=== PATIENT | female | born 1970 | race Caucasian/White ===

== ENCOUNTER 2023-04-12 10:32 | Outpatient (OUT) | payer OTHER, SELFPAY ==
--- NOTE | 2023-04-12 10:42 | XR_ITS ---
The [address] [address] Patient Name: ELSIE FUENTES MRN: [id number] date: 1970 Sex: F Assigned Patient Location: [facility] Current Patient Location: [facility] Accession/Order Number: [id number] Exam Date: 04/12/2023 10:42 Report Date: 04/12/2023 16:20 At the request of: SADE WILDE Procedure: XR foot RT min 3V PROCEDURE: XR foot RT min 3V HISTORY: RIGHT FOOT PAIN COMPARISON: XR foot right 02/21/2023 FINDINGS: BONES:Anterior and posterior calcaneal osteotomy with wedge placement anteriorly and lag screw fixation posteriorly. Osteotomy and wedge placement within the medial cuneiform. Osteotomy and single screw repair of head of first metatarsal. SOFT TISSUES:No visible soft tissue swelling. EFFUSION:None visible. OTHER: Negative. IMPRESSION: 1. Stable surgical changes without evidence of hardware failure or change in alignment. Electronically authenticated by: ZAIDA ACOSTA Date: 04/12/2023 16:20
== END 2023-04-12 10:33 ==
LOC: RAD 10:33
PROVIDERS: PCP Family Medicine; Visit Provider Podiatrist Foot & Ankle Surgery
DX: M79.671 Pain in right foot (principal)
CPT/HCPCS: 73630

== ENCOUNTER 2023-04-14 08:37 | Outpatient (OUT) | payer OTHER, SELFPAY ==
--- NOTE | 2023-04-14 08:56 | CT_ITS ---
[address] [address] Patient Name: ELSIE FUENTES MRN: [id number] date: 1970 Sex: F Assigned Patient Location: CT Current Patient Location: CT Accession/Order Number: [id number] Exam Date: 04/14/2023 09:00 Report Date: 04/14/2023 12:03 At the request of: SADE WILDE Procedure: CT ankle RT wo con EXAMINATION: CT ankle RT wo con HISTORY: Posterior Tibial Tendonitis Right Leg M76.821 COMPARISON: XR foot right 04/12/2023 TECHNIQUE: Multi-planar CT images were created without IV contrast. Dose reduction techniques were achieved by using automated exposure control and/or adjustment of mA and/or kV according to patient size and/or use of iterative reconstruction technique. FINDINGS: BONES: No fracture, dislocation, bone lesion, or periosteal reaction. Anterior calcaneal osteotomy with wedge placement. Posterior calcaneal osteotomy with realignment secured by 2 lag screws. Medial cuneiform osteotomy and wedge placement. SOFT TISSUES: Mild edema; no appreciable significant abnormality. EFFUSION: None visible. OTHER: Negative. IMPRESSION: 1. Remote surgical changes without appreciable acute abnormality or significant degenerative joint disease. 2. No appreciable soft tissue abnormality other than scattered mild edema. Electronically authenticated by: ZAIDA ACOSTA Date: 04/14/2023 12:03
== END 2023-04-14 08:38 ==
LOC: CT 08:38
PROVIDERS: PCP Family Medicine; Visit Provider Podiatrist Foot & Ankle Surgery
DX: M76.821 Posterior tibial tendinitis, right leg (principal); S93.30 Unspecified subluxation and dislocation of foot
CPT/HCPCS: 73700

== ENCOUNTER 2023-05-04 07:47 | Outpatient (OUT) | payer OTHER, SELFPAY ==
[2023-05-04 09:40] LABS: Anion Gap 9.3; BUN Creatinine Ratio 18.9; Carbon Dioxide 28.6 mmol/L (21.0-32.0); Chloride 107 mmol/L (98-107); Estimated GFR (African America >60 (>=60); Estimated GFR (Non-African Ame >60 (>=60); Glucose 106 mg/dL (74-106); Potassium 3.9 mmol/L (3.5-5.1); Sodium 141 mmol/L (136-145)
== END 2023-05-04 07:48 | disposition home or self-care (01) ==
LOC: PST 07:47
PROVIDERS: PCP Family Medicine; Visit Provider Podiatrist Foot & Ankle Surgery
DX: Z01.812 Encounter for preprocedural laboratory examination (principal); M76.821 Posterior tibial tendinitis, right leg; S93.30 Unspecified subluxation and dislocation of foot; I10 Essential (primary) hypertension
CPT/HCPCS: 36415; 80048

== ENCOUNTER 2023-05-13 09:58 | Observation (INO) | payer OTHER, SELFPAY ==
[2023-05-04 08:28] VITALS: PULSE 73; TEMP 36.5; O2SAT 96; BMI 29.1
[2023-05-12] VITALS (13 sets, daily range): BP systolic 111–127; BP diastolic 69–79; PULSE 58–93; RESP 10–18; TEMP 36.1–36.8; O2SAT 93–99; BMI 28.4
--- NOTE | 2023-05-12 | XR_ITS ---
[address] [address] Patient Name: ELSIE FUENTES MRN: [id number] date: 1970 Sex: F Assigned Patient Location: [facility] Current Patient Location: [facility] Accession/Order Number: [id number] Exam Date: 05/12/2023 12:15 Report Date: 05/12/2023 16:51 At the request of: SADE WILDE Procedure: XR foot RT min 3V EXAM: XR foot RT min 3V HISTORY: Right foot/ankle surgery COMPARISON: 04/12/2023 TECHNIQUE: 24 images FINDINGS: 24 images demonstrate posterior calcaneal osteotomy transfixed with cannulated screws. Anterior calcaneal osteotomy placement of a wedge spacer. Transverse osteotomy of the medial cuneiform. Surgical joshua across the lateral midfoot. Subtalar and talonavicular fusion IMPRESSION: Postsurgical changes as detailed above Electronically authenticated by: NICKI DACOSTA Date: 05/12/2023 16:51
[2023-05-12 10:50] LABS: Basophils Absolute Auto 0.1 10^3/uL (0.0-0.1); Basophils Percent Auto 0.9 % (0.2-2.0); Eosinophils Absolute Auto 0.1 10^3/uL (0.0-0.7); Hematocrit 38.9 % (36.0-48.0); Hemoglobin 12.8 g/dL (12.0-16.0); Immature Granulocytes Abs Auto 0.01 10^3/uL (0.00-0.03); Immature Granulocytes Pct Auto 0.1 % (0.0-0.5); Lymphocytes Absolute Auto 2.3 10^3/uL (1.2-3.8); Lymphocytes Percent Auto 32.8 % (20.5-60.0); Mean Corpuscular HGB Conc 32.9 g/dL (29.9-35.2); Mean Corpuscular Volume 85.1 fL (81.0-99.0); Mean Platelet Volume 8.9 fL (9.5-13.5); Monocytes Absolute Auto 0.5 10^3/uL (0.3-0.8); Monocytes Percent Auto 7.7 % (1.7-12.0); Neutrophils Absolute Auto 3.9 10^3/uL (1.4-6.5); Neutrophils Percent Auto 56.5 % (43.0-75.0); Platelet Count 320 10^3/uL (150-450); Red Blood Count 4.57 10^6/uL (4.20-5.40); Red Cell Distribution Width 12.9 % (11.0-15.0); White Blood Count 6.9 10^3/uL (4.0-11.0)
[2023-05-12 11:12] LABS: Glucometer 87 mg/dL (74-106)
[2023-05-12] MEDS: LACTATED RINGER'S SOLUTION 1,000 ML 50 ML IV ×3 (11:20→18:51)
--- NOTE | 2023-05-12 11:49 | PC.NURSE ---
1132 TIME OUT PERFORMED. 2 MG VERSED GIVEN WITH 50 FENTYNAL, REPOSITIONED PATIENT ON LEFT SIDE . PHYSICIAN CLEANSED BEHIND THE KNEE AREA , INJECTION STARTED AD FINISHED AT 1140 LOCATION POPLITEAL. NEXT TIME OUT 1142 FOR INJECTION OF ADUCTOR CANAL 50 FENTYNAL GIVEN AT THIS TIME AREA IN FRONT OF KNEE CLEANSED AND INJECTION STARTED THERE AFTER. AND COMPLETED AT 1144. PATIENT TOLERATED WELL.
[2023-05-12] MEDS: CEFAZOLIN SODIUM/DEXTROSE,ISO 2 GM/50 ML PIGGYBACK IV ×2 (11:54→20:07)
--- NOTE | 2023-05-12 13:38 | P.ORON_ITS ---
Brief Operative Note Date of procedure: 05/12/23 Pre-op diagnosis: right PTTD, retained hardware, subluxation CCJ, DJD foot Post-op diagnosis: other (right posterior tibial tendon dysfunction, retained orthopedic hardware, subluxation of calcaneocuboid joint and foot arthritis) Procedure: Procedures Performed: right triple arthrodesis, removal of deep implanted orthopedic hardware, harvest of distal tibial bone graft, ostectomy of calcaneus, application of short leg splint and intraoperative fluoroscopy examination PROCEDURE IN DETAIL: Patient was identified in pre op and consent was reviewed. Correct side and site were identified and marked. Pre-op antibiotics were started. Patient was brought to OR suite and place on table in a supine position. General anesthesia was administered. Tourniquet applied. Operative extremity was prepped and draped in usual sterile fashion. Formal time-out was performed and the foot/ankle were exsanguinated and tourniquet inflated. Incision was placed on the posterior calcaneus and blunt dissection was taken down to bone. A dental pick, curettes and osteotomes were used to identify the two retained calcaneal screws with the aid of fluoroscopy. Once the screws were identified and were removed with appropriate screwdriver. The screw holes were then curetted and bone was noted to be healthy and without evidence of infection. An incision from fibular malleolus to the cuboid was undertaken. Combination of sharp and blunt dissection gained access to the sinus tarsi. All bleeders were tied off or cauterized. EDB muscle was reflected and tagged for later approximation. Sinus tarsectomy was then performed. Hintermann distractor was used to access the subtalar joint which was prepped with curettes, osteotomes, rongeurs and drill with 2.0 mm drill.The posterior and the middle facet was thoroughly prepped. Attention was then drawn to the calcaneal cuboid joint which was release of all ligamentous. a distractor was used to fully visualize the articulation which was then prepared for fusion using same technique as was performed for the subtalar joint. The joint was irrigated with copious saline and the distractor was removed. An incision between the tibialis anterior and extensor hallucis longus tendon was utilized with sharp and blunt dissection. All bleeders were coagulated. Care was taken to protect neurovascular and tendinous structures. Deep dissection to the talonavicular joint was performed followed by blunt dissection directly onto the joint expose the entire joint. The talar head and navicular were then prepped with curettes, osteotomes, rongeurs and drill with 2.0 mm drill. All fusion sites were irrigated with copious amounts of sterile saline. dorsal talonavicular joint incision was then extended proximally. The ankle capsule was left intact but dissection was taken down to bone of the distal tibia. An 8 mm harvester was used to obtain autograft. The harvester was passed multiple times within the distal tibia to obtain 6cc of graft. The autograft was mixed with Sparc allograft then was packed into each of the three joints. The TNJ was then further reduced with manual manipulation and slightly plantarflexion. Utilizing fluoroscopy the talonavicular joint was then pinned with a guidewire through an accessory stab incision over the medial midfoot. Utilizing an additional guidewire and fluoroscopy the subtalar joint was then pinned from the talar neck into the calcaneal body. Fluoroscopy confirmed proper placement. Screw length was then measured and a 4.5 mm headless cannulated screw was placed across the talonavicular joint followed by a 6.5 mm headless cannulated screw across the subtalar joint. An additional guide wire was placed through a stab incision over posterior heel. The wire was placed from the calcaneal tuberosity into the talar body. Fluoroscopy confirmed deformity correction and proper placement of the wires. Then an additional 6.5 mm headless cannulated screw was placed over this wire. Guidewires, K wires and the distractor were then removed and position was rechecked on fluoroscopy and any residual deformity was evaluated. then utilizing the same stab incision over the medial midfoot a guidewire was placed across the talonavicular joint and an additional 4.5 mm cannulated screw was placed accordingly. Fluoroscopy as well as under direct visualization demonstrated significant compression of both joints and proper hardware placement. at this point in time the tourniquet was deflated and a prompt hyperemic response is noted. Surgical sites were irrigated and the dorsal incision was then closed in layers and the posterior heel incision was closed in a single layer while the lateral incision was temporarily closed with joshua. Once the dorsal incision and the posterior calcaneal incision were closed (ample time passed for reperfusion of the foot) and the foot was exsanguinated and the tourniquet was reinflated. the joshua were removed from the lateral incision and the site was irrigated. Then under fluoroscopy a 20 mm staple was placed from lateral to medial which provided compression and stability across the calcaneal cuboid joint. then the incision was slightly extended and dissection was taken dorsally to fully expose the anterior process which was dorsally prominent. The prominence was removed with an osteotome and rongeurs then smoothed with a rasp. Then an additional 20 mm staple was placed from dorsal to plantar providing additional stability. Fluoroscopy was used to confirm the placement of both joshua as well as the other fixation. Surgical site was irrigated then closed in layers. All sites were flushed with copious saline. Stab incisions and posterior heel incision were closed with nylon suture. The remaining incisions were closed in layers after. The tourniquet was dropped and a prompt hyperemic response was noted. A dry sterile dressing consisting of Xeroform on the incisions followed by 4 x 4 gauze, ABDs, and Kerlix were applied. Multiple layers of cast padding were then applied to ensure all bony prominences were well-padded. A plaster posterior splint was then applied which was held in place by Manjinder wraps. Capillary refill time to all digits was evaluated and had appropriate response. intraoperative findings: Dorsal subluxation of the anterior process of the calcaneus is notable with stable retained Campbell wedge with cortical bony overgrowth. Degenerative changes were noted of the subtalar and calcaneocuboid joints as well as mildly to the talonavicular joint. Bone quality was within normal limits. POSTOPERATIVE PLAN: Transfer to med/surg under hospitalist's care NWB operative foot/ankle Ice and elevation Lolis-op antibiotics, multimodal pain medication and DVT prophylaxis ordered Consults: physical therapy & manager social work Estimated LOS 1-2 nights Will follow *NWB x6-8 weeks Implants: Medline joshua/screws Anesthesia: other (general & regional) Surgeon: Jacob Felix Manifest/Order Organizer Print Orders: Benedicto Oviedo Estimated blood loss (mL): 25 Pathology: none sent Condition: stable Disposition: PACU Preoperative Details Reason for procedure: patient is a 53-year-old female well known to my practice who has undergone bilateral flatfoot reconstruction with the right being performed on 10/17/22. For postoperative period was complicated by a fall a few weeks after surgery and persistent pain over her sinus tarsi. Recent x-rays and CT scan show subluxation of the calcaneocuboid joint which is in the area of her pain. Given her lack of improvement she wished to pursue revision given that her pain is affecting activities of daily living, recreation and was daily. I recommended triple arthrodesis and discussed the downside of this option is the loss of motion in her hindfoot which she communicated was worth treating for pain relief. I outlined other possible complications including infection, pain, stiffness, adjacent joint arthritis, delayed/nonunion, wound and blood clot as well as need for additional surgery including hardware removal or revision. Consent was obtained and she wished to proceed with revision reconstruction.
[2023-05-12] MEDS: THROMBI-GEL SIZE 40 HEMOSTAT 1 EACH TOPICAL (13:45)
--- NOTE | 2023-05-12 15:25 | XR_ITS ---
The [address] [address] Patient Name: ELSIE FUENTES MRN: [id number] date: 1970 Sex: F Assigned Patient [facility] Current Patient Location: [facility] Accession/Order Number: [id number] Exam Date: 05/12/2023 14:10 Report Date: 05/12/2023 16:38 At the request of: NANCY CLARK Procedure: XR ankle RT min 3V STUDY: XR foot RT min 3V, XR ankle RT min 3V, [id number], [id number] HISTORY: post op COMPARISON: CT of the right ankle 04/14/2023. FINDINGS/IMPRESSION: Overlying cast material obscures fine bony detail. Status post hindfoot and midfoot fusion. Widening of the lateral aspect of the tibiotalar joint in the craniocaudad dimension. This of uncertain etiology and could be due to ankle stability versus positioning while in cast. No acute displaced fracture demonstrated. Status post first metatarsal bunionectomy. Electronically authenticated by: MELL ESCOBAR Date: 05/12/2023 16:38
[2023-05-12] MEDS: HYDROMORPHONE HCL 0.5 MG/0.5 ML SYRINGE IV ×2 (15:52→16:10)
[2023-05-12 15:58] LABS: Glucometer 113 mg/dL (74-106)
--- NOTE | 2023-05-12 16:01 | XR_ITS ---
The [address] [address] Patient Name: ELSIE FUENTES MRN: [id number] date: 1970 Sex: F Assigned Patient Location: [facility] Current Patient Location: [facility] Accession/Order Number: [id number] Exam Date: 05/12/2023 14:10 Report Date: 05/12/2023 16:38 At the request of: NANCY CLARK Procedure: XR foot RT min 3V STUDY: XR foot RT min 3V, XR ankle RT min 3V, [id number], [id number] HISTORY: post op COMPARISON: CT of the right ankle 04/14/2023. FINDINGS/IMPRESSION: Overlying cast material obscures fine bony detail. Status post hindfoot and midfoot fusion. Widening of the lateral aspect of the tibiotalar joint in the craniocaudad dimension. This of uncertain etiology and could be due to ankle stability versus positioning while in cast. No acute displaced fracture demonstrated. Status post first metatarsal bunionectomy. Electronically authenticated by: MELL ESCOBAR Date: 05/12/2023 16:38
[2023-05-12] MEDS: ENOXAPARIN SODIUM 40 MG/0.4 ML SYRINGE SUBQ (18:50)
[2023-05-12] MEDS: OXYCODONE HCL 5 MG TABLET 15 MG PO (18:50)
[2023-05-12 19:02] LABS: Bilirubin Urine NEGATIVE (NEGATIVE); Blood Urine NEGATIVE (NEGATIVE); Clarity Urine CLEAR (CLEAR); Color Urine LT. YELLOW (YELLOW); Glucose Urine UA NEGATIVE (NEGATIVE); Ketones Urine NEGATIVE (NEGATIVE); Leukocyte Esterase Urine NEGATIVE (NEGATIVE); Nitrite Urine NEGATIVE (NEGATIVE); Protein Urine NEGATIVE (NEG/TRACE); Urobilinogen Urine 0.2 EU/dL (0.2-1.0)
[2023-05-12 19:14] LABS: Urine Microscopic Indicated NO
[2023-05-12] MEDS: ROPINIROLE HCL 1 MG TABLET 2 MG PO (21:52)
[2023-05-12] MEDS: TRAZODONE HCL 50 MG TABLET 200 MG PO (21:52)
[2023-05-12] MEDS: ZOLPIDEM TARTRATE 10 MG TABLET PO (21:55)
[2023-05-13] MEDS: CEFAZOLIN SODIUM/DEXTROSE,ISO 2 GM/50 ML PIGGYBACK IV ×3 (03:10→20:10)
[2023-05-13] MEDS: OXYCODONE HCL 5 MG TABLET 10 MG PO (03:20)
[2023-05-13 05:53] VITALS: BP 104/63; PULSE 82; RESP 18; TEMP 36.9; O2SAT 93
[2023-05-13] MEDS: ATENOLOL 25 MG TABLET PO (08:19)
[2023-05-13] MEDS: ATORVASTATIN CALCIUM 20 MG TABLET PO (08:19)
[2023-05-13] MEDS: ROPINIROLE HCL 1 MG TABLET PO (08:19)
[2023-05-13] MEDS: OMEPRAZOLE 40 MG CAPSULE.DR PO (08:19)
[2023-05-13] MEDS: ACETAMINOPHEN 500 MG TABLET 1000 MG PO ×2 (08:19→15:39)
[2023-05-13] MEDS: BACLOFEN 10 MG TABLET 20 MG PO ×2 (08:24→20:10)
[2023-05-13] MEDS: KETOROLAC TROMETHAMINE 10 MG TABLET PO (08:30)
--- NOTE | 2023-05-13 09:57 | P.PN_ITS ---
Progress Note: Subjective Subjective Interval history: consulted for COmedical management Exam Constitutional Vital Signs, click to edit/add: Last Vital Signs Temp 98.4 F 05/13/23 05:53 Pulse 82 05/13/23 05:53 Resp 18 05/13/23 05:53 BP 104/63 05/13/23 05:53 Pulse Ox 93 L 05/13/23 05:53 O2 Del Method Room Air 05/13/23 05:53 O2 Flow Rate 3 05/12/23 16:02 Chest Common normals: inspection of chest normal Respiratory Common normals: normal respiratory effort Cardio Common normals: regular rate, regular rhythm and no murmurs GI Common normals: Normal to inspection, nondistended, normoactive bowel sounds present, soft to palpation, non-tender and no masses Progress Note: Objective Labs Labs: Short CBC 05/12/23 Range/Units 10:45 WBC 6.9 (4.0-11.0) 10^3/uL Hgb 12.8 (12.0-16.0) g/dL Hct 38.9 (36.0-48.0) % Plt Count 320 (150-450) 10^3/uL Urine 05/12/23 Range/Units 18:15 Urine Color Lt. yellow (YELLOW) Urine Clarity Clear (CLEAR) Urine pH 5.0 (5.0-9.0) Ur Specific [place] 1.010 (1.005-1.025) Urine Protein Negative (NEG/TRACE) mg/dL Urine Glucose (UA) Negative (NEGATIVE) mg/dL Progress Note: A&P Assessment and Plan (1) Anxiety: (2) Hypertension: (3) Sleep disorder: Plan Consulted for medical management for patient with podiatric ankle repair Hypertension-continue with home medications Generalized anxiety disorder with depression-continue with home medications Sleep apnea-patient does not use the machine but will monitor here Discharge disposition per podiatry
--- NOTE | 2023-05-13 09:59 | PM.PN ---
Progress Note: Subjective Subjective Interval history: patient is postop day one s/p right triple arthrodesis with bone graft. She relates that her pain is quite severe relating that the block has worn off starting at eight this morning. She has been offered pain medicine however relates that opioids bother her stomach. she has not been out of bed yet with physical therapy. She denies nausea, vomiting, chest pain, shortness of breath, calf pain. Exam Narrative Exam Narrative: splint is clean dry and intact. Able to wiggle toes no calf Pain on squeeze Constitutional Vital Signs, click to edit/add: Last Vital Signs Temp 98.4 F 05/13/23 05:53 Pulse 82 05/13/23 05:53 Resp 18 05/13/23 05:53 BP 104/63 05/13/23 05:53 Pulse Ox 93 L 05/13/23 05:53 O2 Del Method Room Air 05/13/23 05:53 O2 Flow Rate 3 05/12/23 16:02 Progress Note: Objective Labs Labs: Short CBC 05/12/23 Range/Units 10:45 WBC 6.9 (4.0-11.0) 10^3/uL Hgb 12.8 (12.0-16.0) g/dL Hct 38.9 (36.0-48.0) % Plt Count 320 (150-450) 10^3/uL Urine 05/12/23 Range/Units 18:15 Urine Color Lt. yellow (YELLOW) Urine Clarity Clear (CLEAR) Urine pH 5.0 (5.0-9.0) Ur Specific [place] 1.010 (1.005-1.025) Urine Protein Negative (NEG/TRACE) mg/dL Urine Glucose (UA) Negative (NEGATIVE) mg/dL ABG Attestation: I have reviewed the pertinent ABG results. Pulse Oximetry Attestation: I have reviewed the pertinent pulse oximetry results. Progress Note: A&P Assessment and Plan (1) Posterior tibial tendon dysfunction (PTTD) of right lower extremity: Assessment and Plan: s/p right foot revision reconstruction on 05/12/23 Plan She is having pain given block has worn off. I changed her Toradol order to 30mg IM q6 prn while the PO Toradol was discontinued Lyrica 75mg BID was added to aid in multimodal pain control and reduce rebound pain as nerve block continues to wear off Oxycodone ER 10mg was also added She is strict nonweightbearing in his to get out of bed today and work with physical therapy. She may sit in chair if she is comfortable Unrelated to the patient that she will likely be here until Monday or Monday in that I or Dr. Oviedo would wound on her Monday She will follow up in roughly a week from discharge Prescription is in her chart for pain medicine and all other prescriptions were sent to her pharmacy
[2023-05-13] MEDS: PREGABALIN 75 MG CAPSULE PO ×2 (10:43→20:10)
[2023-05-13 11:25] VITALS: O2SAT 97
[2023-05-13] MEDS: OXYCODONE HCL 5 MG TABLET 15 MG PO ×2 (12:20→18:23)
[2023-05-13] MEDS: KETOROLAC TROMETHAMINE 30 MG/ML VIAL IM ×2 (13:35→20:10)
[2023-05-13 13:41] VITALS: BP 92/57; PULSE 82; RESP 18; TEMP 36.7; O2SAT 93
[2023-05-13] MEDS: ENOXAPARIN SODIUM 40 MG/0.4 ML SYRINGE SUBQ (17:40)
[2023-05-13] MEDS: ROPINIROLE HCL 1 MG TABLET 2 MG PO (21:17)
[2023-05-13] MEDS: ZOLPIDEM TARTRATE 10 MG TABLET PO (21:17)
[2023-05-13] MEDS: TRAZODONE HCL 50 MG TABLET 200 MG PO (21:18)
[2023-05-13 21:20] VITALS: BP 90/58; PULSE 79; RESP 18; TEMP 37.2; O2SAT 92; O2SAT 93
[2023-05-14] MEDS: OXYCODONE HCL 5 MG TABLET 15 MG PO (02:20)
[2023-05-14] MEDS: CEFAZOLIN SODIUM/DEXTROSE,ISO 2 GM/50 ML PIGGYBACK IV ×3 (04:40→20:28)
[2023-05-14 05:39] VITALS: BP 128/78; PULSE 91; RESP 18; TEMP 37.9; O2SAT 91
[2023-05-14] MEDS: ACETAMINOPHEN 500 MG TABLET 1000 MG PO (05:54)
[2023-05-14 09:10] LABS: Basophils Percent Auto 0.5 % (0.2-2.0); Eosinophils Absolute Auto 0.1 10^3/uL (0.0-0.7); Eosinophils Percent Auto 1.7 % (0.9-7.0); Hemoglobin 10.1 g/dL (12.0-16.0); Immature Granulocytes Abs Auto 0.01 10^3/uL (0.00-0.03); Immature Granulocytes Pct Auto 0.2 % (0.0-0.5); Lymphocytes Absolute Auto 1.4 10^3/uL (1.2-3.8); Lymphocytes Percent Auto 21.7 % (20.5-60.0); Mean Corpuscular HGB Conc 32.6 g/dL (29.9-35.2); Mean Corpuscular Hemoglobin 27.8 pg (26.7-34.0); Mean Corpuscular Volume 85.4 fL (81.0-99.0); Mean Platelet Volume 9.1 fL (9.5-13.5); Monocytes Absolute Auto 0.4 10^3/uL (0.3-0.8); Monocytes Percent Auto 6.8 % (1.7-12.0); Neutrophils Absolute Auto 4.5 10^3/uL (1.4-6.5); Neutrophils Percent Auto 69.1 % (43.0-75.0); Platelet Count 240 10^3/uL (150-450); Red Blood Count 3.63 10^6/uL (4.20-5.40); White Blood Count 6.5 10^3/uL (4.0-11.0)
[2023-05-14] MEDS: ATENOLOL 25 MG TABLET PO (09:22)
[2023-05-14] MEDS: ATORVASTATIN CALCIUM 20 MG TABLET PO (09:22)
[2023-05-14] MEDS: ROPINIROLE HCL 1 MG TABLET PO (09:23)
[2023-05-14] MEDS: PREGABALIN 75 MG CAPSULE PO (09:23)
[2023-05-14] MEDS: OMEPRAZOLE 40 MG CAPSULE.DR PO (09:23)
--- NOTE | 2023-05-14 10:32 | P.PN_ITS ---
Progress Note: Subjective Subjective Interval history: Feels ok - just pain level wher had surgery is still high - neck and upper back are ok Exam Constitutional Vital Signs, click to edit/add: Last Vital Signs Temp 100.2 F H 05/14/23 05:39 Pulse 91 H 05/14/23 05:39 Resp 18 05/14/23 05:39 BP 128/78 H 05/14/23 05:39 Pulse Ox 91 L 05/14/23 05:39 O2 Del Method Room Air 05/14/23 05:39 O2 Flow Rate 3 05/12/23 16:02 Chest Common normals: inspection of chest normal Respiratory Common normals: normal respiratory effort Cardio Common normals: regular rate, regular rhythm and no murmurs GI Common normals: Normal to inspection, nondistended, normoactive bowel sounds present, soft to palpation, non-tender and no masses Progress Note: Objective Labs Labs: Short CBC 05/14/23 Range/Units 08:20 WBC 6.5 (4.0-11.0) 10^3/uL Hgb 10.1 L (12.0-16.0) g/dL Hct 31.0 L (36.0-48.0) % Plt Count 240 (150-450) 10^3/uL Progress Note: A&P Assessment and Plan (1) Anxiety: (2) Hypertension: (3) Sleep disorder: Plan Consulted for medical management for patient with podiatric ankle repair Hypertension-continue with home medications - stable Generalized anxiety disorder with depression-continue with home medications Sleep apnea-patient does not use the machine but will monitor here Post op fever- possibly just anesthesia effect but has been over 24 hours - check cbc, blood cx times 2 Discharge disposition per podiatry
[2023-05-14] MEDS: 0.9 % SODIUM CHLORIDE 250 ML 100 ML IV (11:46)
[2023-05-14 12:01] VITALS: O2SAT 92
[2023-05-14] MEDS: KETOROLAC TROMETHAMINE 30 MG/ML VIAL IM ×2 (12:12→18:44)
[2023-05-14] MEDS: ONDANSETRON 4 MG RAPDIS TABLET SL (12:46)
[2023-05-14 14:33] VITALS: BP 104/68; PULSE 75; RESP 16; TEMP 36.9; O2SAT 91
[2023-05-14] MEDS: ENOXAPARIN SODIUM 40 MG/0.4 ML SYRINGE SUBQ (17:06)
[2023-05-14] MEDS: MECLIZINE HCL 12.5 MG TABLET 25 MG PO ×2 (17:51→23:02)
[2023-05-14 19:52] VITALS: RESP 16
[2023-05-14 20:43] VITALS: O2SAT 95
[2023-05-14 21:30] VITALS: BP 118/77; PULSE 81; RESP 18; TEMP 36.8; O2SAT 93
--- NOTE | 2023-05-14 22:27 | PC.NURSE ---
1 large slightly solid normal brown color
[2023-05-14] MEDS: ROPINIROLE HCL 1 MG TABLET 2 MG PO (23:02)
[2023-05-14] MEDS: ZOLPIDEM TARTRATE 10 MG TABLET PO (23:03)
[2023-05-14] MEDS: TRAZODONE HCL 50 MG TABLET 200 MG PO (23:03)
[2023-05-15] MEDS: CEFAZOLIN SODIUM/DEXTROSE,ISO 2 GM/50 ML PIGGYBACK IV (03:47)
[2023-05-15] MEDS: OXYCODONE HCL 5 MG TABLET 15 MG PO (03:52)
[2023-05-15 04:55] VITALS: BP 117/77; PULSE 86; RESP 18; TEMP 37.7; O2SAT 90
[2023-05-15 04:57] LABS: Basophils Percent Auto 0.5 % (0.2-2.0); Eosinophils Absolute Auto 0.1 10^3/uL (0.0-0.7); Eosinophils Percent Auto 1.8 % (0.9-7.0); Hematocrit 31.7 % (36.0-48.0); Immature Granulocytes Abs Auto 0.02 10^3/uL (0.00-0.03); Immature Granulocytes Pct Auto 0.3 % (0.0-0.5); Lymphocytes Absolute Auto 1.1 10^3/uL (1.2-3.8); Lymphocytes Percent Auto 16.9 % (20.5-60.0); Mean Corpuscular HGB Conc 31.5 g/dL (29.9-35.2); Mean Corpuscular Hemoglobin 27.3 pg (26.7-34.0); Mean Corpuscular Volume 86.6 fL (81.0-99.0); Mean Platelet Volume 9.3 fL (9.5-13.5); Monocytes Absolute Auto 0.4 10^3/uL (0.3-0.8); Monocytes Percent Auto 6.4 % (1.7-12.0); Neutrophils Absolute Auto 4.6 10^3/uL (1.4-6.5); Neutrophils Percent Auto 74.1 % (43.0-75.0); Platelet Count 248 10^3/uL (150-450); Red Blood Count 3.66 10^6/uL (4.20-5.40); Red Cell Distribution Width 12.6 % (11.0-15.0); White Blood Count 6.2 10^3/uL (4.0-11.0)
[2023-05-15 05:17] LABS: Alanine Aminotransferase 21 U/L (14-59); Albumin Globulin Ratio 0.9; Albumin Level 2.7 g/dL (3.4-5.0); Alkaline Phosphatase 99 U/L (46-116); Anion Gap 7.7; Aspartate Amino Transferase 23 U/L (15-37); BUN Creatinine Ratio 9.3; Bilirubin Total 0.3 mg/dL (0.2-1.0); Calcium 8.3 mg/dL (8.5-10.1); Carbon Dioxide 29.3 mmol/L (21.0-32.0); Chloride 104 mmol/L (98-107); Estimated GFR (African America >60 (>=60); Estimated GFR (Non-African Ame >60 (>=60); Globulin 3.1 g/dL; Glucose 130 mg/dL (74-106); Sodium 137 mmol/L (136-145); Total Protein 5.8 g/dL (6.4-8.2)
[2023-05-15 05:37] VITALS: TEMP 37.6
[2023-05-15 06:10] VITALS: TEMP 37.5
--- NOTE | 2023-05-15 08:19 | PM.PN ---
Progress Note: Subjective Subjective Interval history: Patient seen and evaluated this morning. States she had pain from her surgical site over this weekend. She was seen by Dr. Felix Monday who ordered some adjunctive medications to help control her pain. States her pain was uncontrollable until Monday night which point we had instructed the nurse to loosen her Manjinder wrap as well as loosening or splint. States her pain tremendously improved and she did not take pain medication for nearly 24 hours until this morning. States she has history of anxiety and had a panic attack this weekend secondary to the tight Manjinder wrap, swelling and pain. States she is unsure if she wants go home due to concern for increased pain. Denies any constitutional symptoms. Denies any chest pain. Exam Narrative Exam Narrative: Splint was left clean dry and intact Wiggles digits without discomfort Capillary refill intact to distal digits Sensation intact to light touch No pain with calf compression Constitutional Vital Signs, click to edit/add: Last Vital Signs Temp 99.5 F 05/15/23 06:10 Pulse 86 05/15/23 04:55 Resp 18 05/15/23 04:55 BP 117/77 05/15/23 04:55 Pulse Ox 90 L 05/15/23 04:55 O2 Del Method Room Air 05/15/23 04:55 O2 Flow Rate 3 05/12/23 16:02 Progress Note: Objective Labs Labs: Short CBC 05/14/23 05/15/23 Range/Units 08:20 04:21 WBC 6.5 6.2 (4.0-11.0) 10^3/uL Hgb 10.1 L 10.0 L (12.0-16.0) g/dL Hct 31.0 L 31.7 L (36.0-48.0) % Plt Count 240 248 (150-450) 10^3/uL BMP 05/15/23 04:21 Sodium 137 Potassium 4.0 Chloride 104 Carbon Dioxide 29.3 BUN 8.0 Creatinine 0.86 Glucose 130 H Calcium 8.3 L Liver Function 05/15/23 Range/Units 04:21 Total Bilirubin 0.3 (0.2-1.0) mg/dL AST 23 (15-37) U/L ALT 21 (14-59) U/L Alkaline Phosphatase 99 (46-116) U/L Albumin 2.7 L (3.4-5.0) g/dL Progress Note: A&P Assessment and Plan (1) Anxiety: (2) Hypertension: (3) Sleep disorder: Plan Assessment: Status post right flatfoot reconstruction, hindfoot fusion Plan: Patient seen and evaluated Labs and vitals reviewed Physical exam findings discussed with the patient Noted elevated fever Which was not consistent that had a few spikes over the past couple days, denies any chest or breathing problems Noted Low H and H, likely secondary to postsurgical changes No white count noted I discussed with her at length her postoperative course and pain management so far. 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 with her nursing staff Monday night I believe most of her pain was coming from a tight splint and further narcotics do not help with that and that is why and shunted them to take off the base and loosen the call and which she ultimately agrees helped her pain She is icing and elevating, recommend continue with this I discontinued her antibiotics this morning as she finished her work hours of postoperative antibiotics Continue with Lovenox for deep vein thrombosis prophylaxis I prescribed oxycodone to go home with, this was written and left in her chart She'll supplement with Tylenol on her own which we had discussed about preoperatively She takes lorazepam at home for anxiety, I discussed with her reviewing this with her Internal medicine doctor she has likely ordered during her hospital stay although I do not anticipate her staying much longer We did discuss the trazodone ropinirole that was ordered by overnight on-call internal medicine, I discussed with her that this was likely order to help with sleep and that our team Did not place disorder She may call if questions or concerns She'll follow up one week from discharge Anticipate her pain to continue to improve and we discussed staying ahead of the pain with taking oxycodone and somewhat regimen/schedule times as opposed to waiting until the pain is at its worse before taking one She is in agreement Please page questions or concerns
--- NOTE | 2023-05-15 09:02 | P.PN_ITS ---
Progress Note: Subjective Subjective Interval history: pain with not great but decent control Exam Constitutional Vital Signs, click to edit/add: Last Vital Signs Temp 99.5 F 05/15/23 06:10 Pulse 86 05/15/23 04:55 Resp 18 05/15/23 04:55 BP 117/77 05/15/23 04:55 Pulse Ox 90 L 05/15/23 04:55 O2 Del Method Room Air 05/15/23 04:55 O2 Flow Rate 3 05/12/23 16:02 Progress Note: Objective Labs Labs: Short CBC 05/14/23 05/15/23 Range/Units 08:20 04:21 WBC 6.5 6.2 (4.0-11.0) 10^3/uL Hgb 10.1 L 10.0 L (12.0-16.0) g/dL Hct 31.0 L 31.7 L (36.0-48.0) % Plt Count 240 248 (150-450) 10^3/uL BMP 05/15/23 04:21 Sodium 137 Potassium 4.0 Chloride 104 Carbon Dioxide 29.3 BUN 8.0 Creatinine 0.86 Glucose 130 H Calcium 8.3 L Liver Function 05/15/23 Range/Units 04:21 Total Bilirubin 0.3 (0.2-1.0) mg/dL AST 23 (15-37) U/L ALT 21 (14-59) U/L Alkaline Phosphatase 99 (46-116) U/L Albumin 2.7 L (3.4-5.0) g/dL Progress Note: A&P Assessment and Plan (1) Anxiety: (2) Hypertension: (3) Sleep disorder: Plan Consulted for medical management for patient with podiatric ankle repair Hypertension-continue with home medications - stable - keep meds Generalized anxiety disorder with depression-continue with home medications Sleep apnea-patient does not use the machine but will monitor here Post op fever- possibly just anesthesia effect but has been over 24 hours - labs and cx ok - Discharge disposition per podiatry
--- NOTE | 2023-05-15 09:19 | CM.NOTE ---
Rounds made with Dr. Bradford, pt continues to c/o pain at surgical site 8 out of 10. Pt also c/o burning with urination. Dr. Bradford to order UA. Dr. Felix to see pt today to evaluate and possible discharge to home this evening if pain is controlled.
[2023-05-15] MEDS: OMEPRAZOLE 40 MG CAPSULE.DR PO (09:32)
[2023-05-15] MEDS: PREGABALIN 75 MG CAPSULE PO (09:32)
[2023-05-15] MEDS: ROPINIROLE HCL 1 MG TABLET PO (09:32)
[2023-05-15] MEDS: ATORVASTATIN CALCIUM 20 MG TABLET PO (09:32)
[2023-05-15] MEDS: ATENOLOL 25 MG TABLET PO (09:32)
[2023-05-15] MEDS: LORAZEPAM 0.5 MG TABLET 0.25 MG PO (10:32)
[2023-05-15 11:45] LABS: Bilirubin Urine NEGATIVE (NEGATIVE); Blood Urine NEGATIVE (NEGATIVE); Clarity Urine CLEAR (CLEAR); Color Urine LT. YELLOW (YELLOW); Glucose Urine UA NEGATIVE (NEGATIVE); Ketones Urine NEGATIVE (NEGATIVE); Leukocyte Esterase Urine TRACE (NEGATIVE); Nitrite Urine NEGATIVE (NEGATIVE); Protein Urine NEGATIVE (NEG/TRACE); Urobilinogen Urine 0.2 EU/dL (0.2-1.0)
[2023-05-15 11:50] LABS: Bacteria Urine NONE SEEN #/HPF (NONE SEEN); Crystals Seen? None Seen #/HPF (None Seen); Mucus Urine NONE SEEN (NONE SEEN); RBC Urine NONE SEEN #/HPF (0-2); Squamous Epithelial Cell Urine FEW #/LPF (NONE/RARE); WBC Urine 0-2 #/HPF (NONE SEEN)
[2023-05-15 11:51] LABS: Cast Seen? NONE SEEN #/LPF (NONE SEEN); Urine Culture Indicated NO
[2023-05-15 12:04] VITALS: O2SAT 94
[2023-05-15 13:31] VITALS: BP 114/70; PULSE 85; RESP 16; TEMP 36.4; O2SAT 95
--- NOTE | 2023-05-16 13:20 | CM.DCFOLLOWU ---
Person spoke with: patient How are you feeling? I am doing ok. How is your pain? about 05/15. Pt. denies taking her prescribed medications for pain. Pt. states I really need to watch what I take because I have GI issues . Did you understand your discharge instructions? Yes Do you have any questions about your discharge instructions? No Were you given any prescriptions at discharge? Yes Were you able to get your prescriptions filled? Yes Do you understand how to take your medications as ordered? Yes Do you have any questions about your follow up appointment and do you plan to keep your follow up appointment? Plans on keeping follow up appointment with Dr. Felix on 05/18. Encouraged patient to ensure a follow up appointment is also made with her PCP Dr. Gómez, due to hospitalization. Pt. voiced understanding. Is there anything else that you would like to discuss? No Questions/Comments/Concerns/Other: n/a
== END 2023-05-15 13:55 | disposition home or self-care (01) ==
LOC: SURGOUT 05-15 11:34 → MS 05-15 12:17
PROVIDERS: Anesthesiology; Family Medicine; Podiatrist Foot & Ankle Surgery; Admitting Provider Family Medicine; PCP Family Medicine; Visit Provider Family Medicine
PROC: (CPT 1480; principal; 2023-05-12 12:00)
DX: M76.821 Posterior tibial tendinitis, right leg (principal); M25.571 Pain in right ankle and joints of right foot; S93.30 Unspecified subluxation and dislocation of foot; I10 Essential (primary) hypertension; G47.30 Sleep apnea, unspecified; F41.1 Generalized anxiety disorder; F32.A Depression, unspecified; R50.82 Postprocedural fever; G89.18 Other acute postprocedural pain; M19.072 Primary osteoarthritis, left ankle and foot; K21.9 Gastro-esophageal reflux disease without esophagitis; Z79.899 Other long term (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; M79.671 Pain in right foot; Z90.710 Acquired absence of both cervix and uterus
CPT/HCPCS: 01480; 20680; 20902; 28120; 28715; 36415; 51701; 51798; 64445; 64450; 73610; 73620; 73630; 76000; 76942; 80053; 81001; 81003; 82948; 85025; 87040; 87086; 94761; 96365; 96366; 96372; 96375; 96376; 97161; C1713; G0378; J1170; J2704

== ENCOUNTER 2023-05-18 | Observation (INO) | payer OTHER, SELFPAY ==
[2023-05-18 00:08] VITALS: BP 132/87; PULSE 108; RESP 18; TEMP 37.3; O2SAT 98; BMI 28.0
--- NOTE | 2023-05-18 00:38 | PC.NURSE ---
patient states on monday she had surgery on her right foot with dr casiano and was then discharged on monday. states since time of discharge she has had increasing pain to foot and has developed intermittent fevers. states today she was unable to break her fever and called dr casiano who said she needed to come to the ER. patient states it feels like the splint on her foot is getting tighter, remains sensation to toes and is able to wiggle toes, states this movement increases her pain severely. is not on any antibiotics at this time but states she received IV antibiotics while in the hospital. has follow up scheduled for tomorrow with dr casiano.
--- NOTE | 2023-05-18 01:03 | ED_ITS ---
HPI - General Adult General Chief complaint: Fever Stated complaint: fever post complications Time Seen by Provider: 05/18/23 00:47 History of Present Illness HPI narrative: patient is s/p surgery 4 days ago by podiatry. States she developed fever post op. Discharged home monday. Now returns with increasing pain and fever up to 101 at home tonight. States she is taking oxycodone for pain without relief. No nausea or vomiting Related Data Home Medications Medication Instructions Recorded Confirmed albuterol sulfate 90 mcg/actuation 2 puff inhalation Q4H PRN 05/04/23 05/12/23 aerosol inhaler (Ventolin HFA) shortness of breath or wheezing atenolol 25 mg tablet 25 mg PO Q24H 05/04/23 05/04/23 atorvastatin 20 mg tablet 20 mg PO QAM 05/04/23 05/04/23 baclofen 10 mg tablet 20 mg PO Q12H PRN muscle spasm 05/04/23 05/04/23 dexlansoprazole 60 mg 60 mg PO QAM 05/04/23 05/04/23 capsule,biphase delayed release dexpanthenol-choline bitart 50 1 tab PO QAM 05/04/23 05/04/23 mg-25 mg tablet eszopiclone 3 mg tablet (Lunesta) 3 mg PO QPM 05/04/23 05/04/23 fremanezumab-vfrm 225 mg/1.5 mL 125 mg subcut .[id number] 05/04/23 05/04/23 subcutaneous auto-injector (Ajovy) ketorolac 10 mg tablet 10 mg PO Q8H PRN pain 05/04/23 05/04/23 meclizine 25 mg tablet 25 mg PO QDAY PRN motion sickness 05/04/23 05/04/23 promethazine 12.5 mg tablet 12.5 mg PO Q12H PRN nausea and 05/04/23 05/04/23 vomiting ropinirole 1 mg tablet 1 mg PO QAM 05/04/23 05/04/23 ropinirole 2 mg tablet 2 mg PO QPM 05/04/23 05/04/23 trazodone 50 mg tablet 200 mg PO QPM 05/04/23 05/04/23 Previous Rx's Medication Instructions Recorded alendronate 70 mg tablet (Fosamax) 70 mg PO QWEEK fusion 12 weeks #12 05/12/23 tabs cholecalciferol (vitamin D3) 50 50 mcg PO QDAY 3 months #90 caps 05/12/23 mcg (2,000 unit) capsule (Vitamin D3) enoxaparin 40 mg/0.4 mL 40 mg (0.4 mL) subcut QDAY 05/12/23 subcutaneous syringe (Lovenox) prohylaxis 30 days #12 mL ondansetron 4 mg disintegrating 4 mg PO QDAY PRN nausea and 05/12/23 tablet vomiting 3 days #6 tabs sennosides 8.6 mg tablet (senna) 8.6 mg PO BID PRN constipation 3 05/12/23 days #6 tabs Allergies Allergy/AdvReac Type Severity Reaction Status Date / Time risperidone [From Risperdal] AdvReac Mild breast Verified 05/18/23 00:13 nipples leak Review of Systems ROS Status of ROS 10 or more systems reviewed and unremarkable except as noted in history and below Constitutional Reports: fever PFSH PFSH Medical History (Updated 05/18/23 @ 02:38 by Lamont Hernandez MD) Surgical History (Updated 05/04/23 @ 08:39 by Leonarda Ruiz) (1987) (03/2022) (2014) (2020) Family History (Updated 05/04/23 @ 08:29 by Leonarda Ruiz) Other Family history of Alzheimer's disease Family history of coronary artery disease Family history of heart disease Family history of hypertension Social History (Updated 05/04/23 @ 08:10 by Leonarda Ruiz) Within the past year, how often did you have a drink containing alcohol: never Score interpretation: A score less than 3 is consistent with normal alcohol consumption. Smoking status: Never smoker Non-prescribed substance use: denies use Previous occupational history: unemployed Highest level of school completed/degree received: some college, no degree Exam Constitutional Vital Signs, click to edit/add: Last Vital Signs Temp 99.1 F 05/18/23 00:08 Pulse 108 H 05/18/23 00:08 Resp 18 05/18/23 00:08 BP 132/87 H 05/18/23 00:08 Pulse Ox 98 05/18/23 00:08 O2 Del Method Room Air 05/18/23 00:08 Common normals: oriented x3, healthy appearing, alert and well nourished [facility] Common normals: normocephalic and head/scalp atraumatic Respiratory Common normals: normal respiratory effort, no retractions, no use of accessory muscles and clear to auscultation bilaterally Cardio Common normals: regular rate, regular rhythm, S1 normal heart sound and S2 normal heart sound GI Common normals: Normal to inspection, nondistended, normoactive bowel sounds present, soft to palpation and non-tender Extremity Other: right foot swollen and warm. mod tenderness . faint erythema . no red streaks Neuro Common normals: oriented x3, CN's II-XII intact bilaterally, moves all extremities and no focal motor deficits Psych Appearance: grossly normal Course Vital Signs Vital signs: Vital Signs Temperature 99.1 F 05/18/23 00:08 Pulse Rate 108 H 05/18/23 00:08 Respiratory Rate 18 05/18/23 00:08 Blood Pressure 132/87 H 05/18/23 00:08 Pulse Oximetry 98 05/18/23 00:08 Oxygen Delivery Method Room Air 05/18/23 00:08 Temperature 99.1 F 05/18/23 00:08 Pulse Rate 108 H 05/18/23 00:08 Respiratory Rate 18 05/18/23 00:08 Blood Pressure 132/87 H 05/18/23 00:08 Pulse Oximetry 98 05/18/23 00:08 Oxygen Delivery Method Room Air 05/18/23 00:08 Medical Decision Making MDM Narrative Medical decision making narrative: patient presents with post op foot pain, swelling and fever. Discussed with her surgeon Dr Felix and he request admission to hospitalist service for IV antibiotics and he will consult in the AM. Discussed with hospitalist and patient is accepted for admission Lab Data Labs: Lab Results 05/18/23 Range/Units 00:30 WBC 6.7 (4.0-11.0) 10^3/uL RBC 3.96 L (4.20-5.40) 10^6/uL Hgb 10.9 L (12.0-16.0) g/dL Hct 32.9 L (36.0-48.0) % MCV 83.1 (81.0-99.0) fL MCH 27.5 (26.7-34.0) pg MCHC 33.1 (29.9-35.2) g/dL RDW 12.4 (11.0-15.0) % Plt Count 387 (150-450) 10^3/uL MPV 9.2 L (9.5-13.5) fL Neut % (Auto) 69.8 (43.0-75.0) % Lymph % (Auto) 19.5 L (20.5-60.0) % [place] % (Auto) 6.9 (1.7-12.0) % Eos % (Auto) 2.8 (0.9-7.0) % Baso % (Auto) 0.6 (0.2-2.0) % Neut # (Auto) 4.7 (1.4-6.5) 10^3/uL Lymph # (Auto) 1.3 (1.2-3.8) 10^3/uL [place] # (Auto) 0.5 (0.3-0.8) 10^3/uL Eos # (Auto) 0.2 (0.0-0.7) 10^3/uL Baso # (Auto) 0.0 (0.0-0.1) 10^3/uL Abs Immat Gran (auto) 0.03 (0.00-0.03) 10^3/uL Imm/Tot Granulo (auto) 0.4 (0.0-0.5) % ESR 55 H (<=30) mm/hr Sodium 137 (136-145) mmol/L Potassium 3.4 L (3.5-5.1) mmol/L Chloride 104 (98-107) mmol/L Carbon Dioxide 25.2 (21.0-32.0) mmol/L Anion Gap 11.2 BUN 12.0 (7.0-18.0) mg/dL Creatinine 0.79 (0.55-1.02) mg/dL Est GFR ( Amer) >60 (>=60) Est GFR (Non-Af Amer) >60 (>=60) BUN/Creatinine Ratio 15.2 Glucose 121 H (74-106) mg/dL Lactate 1.3 (0.4-2.0) mmol/L Calcium 8.7 (8.5-10.1) mg/dL Total Bilirubin 0.3 (0.2-1.0) mg/dL AST 50 H (15-37) U/L ALT 58 (14-59) U/L Alkaline Phosphatase 191 H (46-116) U/L C-Reactive Protein 5.4 H (<=1.0) mg/dL Total Protein 7.0 (6.4-8.2) g/dL Albumin 3.2 L (3.4-5.0) g/dL Globulin 3.8 g/dL Albumin/Globulin Ratio 0.8 Discharge Plan Discharge Chief Complaint: Fever Clinical Impression: Post op infection, Cellulitis Patient Disposition: Admitted as Observation
[2023-05-18 01:24] LABS: Basophils Percent Auto 0.6 % (0.2-2.0); Eosinophils Absolute Auto 0.2 10^3/uL (0.0-0.7); Eosinophils Percent Auto 2.8 % (0.9-7.0); Hematocrit 32.9 % (36.0-48.0); Hemoglobin 10.9 g/dL (12.0-16.0); Immature Granulocytes Abs Auto 0.03 10^3/uL (0.00-0.03); Immature Granulocytes Pct Auto 0.4 % (0.0-0.5); Lymphocytes Absolute Auto 1.3 10^3/uL (1.2-3.8); Lymphocytes Percent Auto 19.5 % (20.5-60.0); Mean Corpuscular HGB Conc 33.1 g/dL (29.9-35.2); Mean Corpuscular Hemoglobin 27.5 pg (26.7-34.0); Mean Corpuscular Volume 83.1 fL (81.0-99.0); Mean Platelet Volume 9.2 fL (9.5-13.5); Monocytes Absolute Auto 0.5 10^3/uL (0.3-0.8); Monocytes Percent Auto 6.9 % (1.7-12.0); Neutrophils Absolute Auto 4.7 10^3/uL (1.4-6.5); Neutrophils Percent Auto 69.8 % (43.0-75.0); Platelet Count 387 10^3/uL (150-450); Red Blood Count 3.96 10^6/uL (4.20-5.40); Red Cell Distribution Width 12.4 % (11.0-15.0); White Blood Count 6.7 10^3/uL (4.0-11.0)
[2023-05-18 01:33] LABS: Erythrocyte Sedimentation Rate 55 mm/hr (<=30)
[2023-05-18 01:36] LABS: Alanine Aminotransferase 58 U/L (14-59); Albumin Globulin Ratio 0.8; Albumin Level 3.2 g/dL (3.4-5.0); Alkaline Phosphatase 191 U/L (46-116); Anion Gap 11.2; Aspartate Amino Transferase 50 U/L (15-37); BUN Creatinine Ratio 15.2; Bilirubin Total 0.3 mg/dL (0.2-1.0); C Reactive Protein 5.4 mg/dL (<=1.0); Calcium 8.7 mg/dL (8.5-10.1); Carbon Dioxide 25.2 mmol/L (21.0-32.0); Chloride 104 mmol/L (98-107); Estimated GFR (African America >60 (>=60); Estimated GFR (Non-African Ame >60 (>=60); Globulin 3.8 g/dL; Glucose 121 mg/dL (74-106); Potassium 3.4 mmol/L (3.5-5.1); Sodium 137 mmol/L (136-145)
[2023-05-18 01:39] LABS: Lactate/Lactic Acid 1.3 mmol/L (0.4-2.0)
[2023-05-18] MEDS: 0.9 % SODIUM CHLORIDE 1,000 ML 999 ML IV (01:58)
[2023-05-18] MEDS: HYDROMORPHONE HCL 1 MG/ML CARTRIDGE 0.5 MG IVP (02:13)
--- NOTE | 2023-05-18 02:34 | XR_ITS ---
The [address] [address] Patient Name: ELSIE FUENTES MRN: [id number] date: 1970 Sex: F Assigned Patient Location: ER Current Patient Location: [place] Accession/Order Number: [id number] Exam Date: 05/18/2023 03:00 Report Date: 05/18/2023 04:12 At the request of: JENNIFER GARCIA Procedure: XR foot RT min 3V EXAM: XR foot RT min 3V HISTORY: Postop infection. COMPARISON: 05/12/2023. TECHNIQUE: AP, oblique and lateral views of the right foot. FINDINGS: Stable postoperative hardware. The bone mineralization is normal. The alignment is anatomic. There is no fracture. There is no osseous destruction or periostitis. The joint spaces are normal. There is soft tissue swelling which is most prominent along the dorsal aspect of the foot. There is no soft tissue gas. There is no radiopaque foreign body. XR/XR foot RT min 3V IMPRESSION: There is no fracture, osseous destruction or periostitis. Stable postop changes. Soft tissue swelling which is most prominent along the dorsal aspect of the foot. Electronically authenticated by: SADE TRISTAN Date: 05/18/2023 04:12
[2023-05-18] MEDS: PIPERACILLIN SODIUM/TAZOBACTAM 3.375 GM in 0.9 % SODIUM CHLORIDE 50 ML IV ×3 (03:24→18:55)
[2023-05-18] MEDS: VANCOMYCIN HCL 1,000 MG in 0.9 % SODIUM CHLORIDE 250 ML 250 MG IV ×3 (03:25→20:40)
[2023-05-18 03:29] VITALS: BP 135/88; PULSE 84; RESP 16; TEMP 37.8; O2SAT 100
[2023-05-18 03:55] VITALS: BP 127/84; PULSE 80; RESP 16; TEMP 37.6; O2SAT 94; BMI 29.2
--- NOTE | 2023-05-18 04:20 | W.PM.TELEPN ---
Progress Note: Subjective Subjective Interval history: The patient is a 53-year-old female who underwent foot surgery on May 12, 2023, by Dr. Felix. ?She underwent a right triple arthrodesis, removal of deep implanted orthopedic hardware, harvest of distal tibial bone graft, ostectomy of calcaneus, application of short leg splint and intraoperative fluoroscopy examination. She had developed some fever postoperatively and was given IV antibiotics and pain medications. She was discharged home however she continued to have increasing pain, swelling and erythema of the right foot. Over the past 24 hours, the patient started developing increasing fever. She called Dr. Edson Guerra who told her to come to the emergency room. She has been given Zosyn and is being admitted for right foot cellulitis. Exam Narrative Exam Narrative: General : Alert and oriented x3 HEENT : Extraocular movements intact, pupils equal round and reactive to light and accommodation Neck: Supple, no JVD Chest: Clear to auscultation bilaterally, no wheezes Heart: Regular rate and rhythm, S1 and S2 heard Abdomen: Soft nontender nondistended. Extremities: No clubbing cyanosis or edema. Right foot, erythema, edema, tenderness Neurologically: Moving all 4 extremities Skin: No rashes Constitutional Vital Signs, click to edit/add: Last Vital Signs Temp 99.7 F H 05/18/23 03:55 Pulse 80 05/18/23 03:55 Resp 16 05/18/23 03:55 BP 127/84 H 05/18/23 03:55 Pulse Ox 94 L 05/18/23 03:55 O2 Del Method Room Air 05/18/23 03:55 Progress Note: Objective Labs Labs: Short CBC 05/18/23 Range/Units 00:30 WBC 6.7 (4.0-11.0) 10^3/uL Hgb 10.9 L (12.0-16.0) g/dL Hct 32.9 L (36.0-48.0) % Plt Count 387 (150-450) 10^3/uL BMP 05/18/23 00:30 Sodium 137 Potassium 3.4 L Chloride 104 Carbon Dioxide 25.2 BUN 12.0 Creatinine 0.79 Glucose 121 H Calcium 8.7 Liver Function 05/18/23 Range/Units 00:30 Total Bilirubin 0.3 (0.2-1.0) mg/dL AST 50 H (15-37) U/L ALT 58 (14-59) U/L Alkaline Phosphatase 191 H (46-116) U/L Albumin 3.2 L (3.4-5.0) g/dL Progress Note: A&P Assessment and Plan (1) Post op infection: (2) Cellulitis: (3) Posterior tibial tendon dysfunction (PTTD) of right lower extremity: Plan The patient is a 53-year-old female with above medical problems, who underwent right foot surgery, presenting with right foot cellulitis. Right foot cellulitis -Provide supportive care -Check CT of foot, look for underlying abscess or infection -Start empiric Zosyn and vancomycin -N.p.o. -Consult Dr. Felix -Pain control DVT Prophylaxis SCDs Medication review -Medication reconciliation form completed Goals of care -Full code Communications -Discussed with the emergency room physician -Discussed with the bedside nurse -Patient updated of plan of care, all questions answered to their satisfaction Disposition -Home when medically stable Telemedicine clause -As the provider of this telehealth evaluation, requested by the patient's evaluating physician, I attest that I introduced myself to the patient, provided my credentials and determined that telemedicine via a real-time, two-way interactive audio and video platform is an appropriate and effective means of providing this service. -I reviewed the patient's chart and had a discussion with the member of the patient's treatment team. -The patient and I mutually agreed with continuation of this evaluation via telemedicine. The patient consented for the telemedicine evaluation. -This virtual encounter was taken place from [place], [place]. The encounter was approximately 35 minutes. The nurse was present during the entire time of the encounter and was able to remove the stethoscope and appropriate directions. The patient was evaluated at [facility] Telemedicine Attestation Telemedicine Attestation I conducted this encounter from [facility] via secure live, [id number] video conference with the patient, located at [facility] with nurse. Prior to the interview, the risks and benefits of telemedicine were discussed with the patient and verbal consent was obtained.
[2023-05-18] MEDS: DEXTROSE 5 %-0.45 % SOD CHLORD 1,000 ML 100 ML IV ×2 (05:16→23:32)
[2023-05-18 05:59] LABS: Basophils Percent Auto 0.7 % (0.2-2.0); Eosinophils Absolute Auto 0.2 10^3/uL (0.0-0.7); Eosinophils Percent Auto 3.7 % (0.9-7.0); Hemoglobin 9.4 g/dL (12.0-16.0); Immature Granulocytes Abs Auto 0.02 10^3/uL (0.00-0.03); Immature Granulocytes Pct Auto 0.4 % (0.0-0.5); Lymphocytes Absolute Auto 1.4 10^3/uL (1.2-3.8); Lymphocytes Percent Auto 24.6 % (20.5-60.0); Mean Corpuscular HGB Conc 32.4 g/dL (29.9-35.2); Mean Corpuscular Hemoglobin 27.7 pg (26.7-34.0); Mean Corpuscular Volume 85.5 fL (81.0-99.0); Mean Platelet Volume 8.9 fL (9.5-13.5); Monocytes Absolute Auto 0.4 10^3/uL (0.3-0.8); Monocytes Percent Auto 7.8 % (1.7-12.0); Neutrophils Absolute Auto 3.6 10^3/uL (1.4-6.5); Neutrophils Percent Auto 62.8 % (43.0-75.0); Platelet Count 304 10^3/uL (150-450); Red Blood Count 3.39 10^6/uL (4.20-5.40); Red Cell Distribution Width 12.5 % (11.0-15.0); White Blood Count 5.7 10^3/uL (4.0-11.0)
[2023-05-18 06:07] LABS: Anion Gap 10.3; BUN Creatinine Ratio 13.3; Calcium 8.1 mg/dL (8.5-10.1); Chloride 107 mmol/L (98-107); Estimated GFR (African America >60 (>=60); Estimated GFR (Non-African Ame >60 (>=60); Glucose 116 mg/dL (74-106); Potassium 3.3 mmol/L (3.5-5.1); Sodium 141 mmol/L (136-145)
[2023-05-18] MEDS: MORPHINE SULFATE 2 MG/ML SYRINGE IV (06:26)
--- NOTE | 2023-05-18 07:12 | CT_ITS ---
The [address] [address] Patient Name: ELSIE FUENTES MRN: [id number] date: 1970 Sex: F Assigned Patient Location: MS Current Patient Location: [place] Accession/Order Number: [id number] Exam Date: 05/18/2023 06:58 Report Date: 05/18/2023 07:52 At the request of: SIMBA MOSQUEDA Procedure: CT foot RT w con EXAMINATION: CT foot RT w con HISTORY: right foot cellulitis ; pain and swelling; right foot surgery 6 days ago COMPARISON: XR foot right 05/18/2023 2:58 AM TECHNIQUE: Multi-planar CT images were created without IV contrast. Dose reduction techniques were achieved by using automated exposure control and/or adjustment of mA and/or kV according to patient size and/or use of iterative reconstruction technique. FINDINGS: BONES: Talocalcaneal fusion via 2 lag screws. Posterior and anterior calcaneal osteotomy; wedge placement within anterior osteotomy. Talonavicular fusion via 2 lag screws. Medial cuneiform osteotomy and wedge placement. Fusion of calcaneus and cuboid via 2 bone joshua. Single screw within head of first metatarsal. No appreciable hardware fracture or loosening. Bone harvesting from distal tibia. SOFT TISSUES: Subcutaneous edema surrounding the foot and ankle. No fluid collection, abscess, or free air. EFFUSION: None visible. OTHER: Negative. CT/CT foot RT w con IMPRESSION: 1. Subcutaneous edema; residual from recent surgery versus cellulitis. 2. Stable surgical changes without evidence of hardware failure or change in alignment. Electronically authenticated by: ZAIDA ACOSTA Date: 05/18/2023 07:52
--- NOTE | 2023-05-18 07:17 | US_ITS ---
The [address] [address] Patient Name: ELSIE FUENTES MRN: [id number] date: 1970 Sex: F Assigned Patient Location: MS Current Patient Location: MS Accession/Order Number: [id number] Exam Date: 05/18/2023 09:30 Report Date: 05/18/2023 10:24 At the request of: NANCY CLARK Procedure: US venous doppler LE BI EXAMINATION: US venous doppler LE BI HISTORY: post op pain, swelling, fever [ COMPARISON: No relevant comparison available. FINDINGS: REGION: Bilateral lower extremities THROMBI: None. COMPRESSIBILITY: Normal compressibility. FLOW: Normal waveform and antegrade flow between 5 and 20 cm/s. OTHER: None. US/US venous doppler LE BI IMPRESSION: 1. No deep vein thrombus within the right or left lower extremity. Electronically authenticated by: ZAIDA ACOSTA Date: 05/18/2023 10:24
--- NOTE | 2023-05-18 07:19 | XR_ITS ---
The [address] [address] Patient Name: ELSIE FUENTES MRN: [id number] date: 1970 Sex: F Assigned Patient Location: MS Current Patient Location: MS Accession/Order Number: [id number] Exam Date: 05/18/2023 08:00 Report Date: 05/18/2023 08:20 At the request of: NANCY CLARK Procedure: XR chest 1V EXAMINATION: XR chest 1V HISTORY: post-op fever, pain, ; foot surgery 05/12/2023 COMPARISON: No relevant comparison available. FINDINGS: LUNGS: No significant pulmonary parenchymal abnormalities. VASCULATURE: No increased pulmonary vasculature. PLEURA: No pneumothorax, effusion, or pleural thickening. CARDIAC: No cardiomegaly or cardiac silhouette abnormality. MEDIASTINUM: No visible mass or adenopathy. BONES: No fracture or visible bone lesion. OTHER: Negative. XR/XR chest 1V IMPRESSION: 1. No acute cardiopulmonary process. Electronically authenticated by: ZAIDA ACOSTA Date: 05/18/2023 08:20
--- NOTE | 2023-05-18 09:06 | CM.NOTE ---
Rounds made with Dr. Bradford, pt c/o increase redness to surgical site and fever. Awaiting podiatry to see pt and will follow for any discharge needs.
--- NOTE | 2023-05-18 09:48 | P.HP_ITS ---
H&P: HPI History of Present Illness Chief complaint: fever post complications Narrative: Patient presented to the emergency room with fever, increasing pain and swelling of the foot. She recent discharge from podiatric surgery. She did have a low- grade fever couple days prior to discharge, repeat UAs were negative chest x-ray was clear and fever did not stay elevated. Evaluation in the emergency room with increasing swelling and pain and fever patient was admitted for possible postoperative complications Review of Systems ROS Constitutional Reports: fever and chills; Denies: change in weight Cardiovascular Denies: chest pain Respiratory Reports: cough; Denies: shortness of breath Gastrointestinal Denies: abdominal pain Genitourinary Denies: painful urination or urinary frequency PFSH PFS Medical History (Updated 05/18/23 @ 02:38 by Lamont Hernandez MD) Surgical History (Updated 05/04/23 @ 08:39 by Leonarda Ruiz) (1987) (03/2022) (2014) (2020) Family History (Updated 05/18/23 @ 02:39 by Olivia Salazar) Other Family history of Alzheimer's disease Family history of coronary artery disease Family history of heart disease Family history of hypertension Social History (Updated 05/18/23 @ 02:40 by Olivia Salazar) Within the past year, how often did you have a drink containing alcohol: never Score interpretation: A score less than 3 is consistent with normal alcohol consumption. Smoking status: Never smoker Non-prescribed substance use: denies use Previous occupational history: unemployed Highest level of school completed/degree received: some college, no degree Little interest or pleasure in doing things: not at all Feeling down, depressed, or hopeless: not at all Feel stressed/tense/nervous/anxious/difficulty sleeping: only a little Due to disability, difficulty making decisions: No Do you think of yourself as: straight/heterosexual Gender Identity: female Meds Home Medications and Allergies Home Medications Medication Instructions Recorded Confirmed Type albuterol sulfate 90 mcg/actuation 2 puff inhalation Q4H PRN 05/04/23 05/18/23 History aerosol inhaler (Ventolin HFA) shortness of breath or wheezing atenolol 25 mg tablet 25 mg PO Q24H 05/04/23 05/18/23 History atorvastatin 20 mg tablet 20 mg PO QAM 05/04/23 05/18/23 History baclofen 10 mg tablet 20 mg PO Q12H PRN muscle spasm 05/04/23 05/18/23 History dexlansoprazole 60 mg 60 mg PO QAM 05/04/23 05/18/23 History capsule,biphase delayed release dexpanthenol-choline bitart 50 1 tab PO QAM 05/04/23 05/18/23 History mg-25 mg tablet eszopiclone 3 mg tablet (Lunesta) 3 mg PO QPM 05/04/23 05/18/23 History fremanezumab-vfrm 225 mg/1.5 mL 125 mg subcut .[id number] 05/04/23 05/18/23 History subcutaneous auto-injector (Ajovy) ketorolac 10 mg tablet 10 mg PO Q8H PRN pain 05/04/23 05/18/23 History meclizine 25 mg tablet 25 mg PO QDAY PRN motion sickness 05/04/23 05/18/23 History promethazine 12.5 mg tablet 12.5 mg PO Q12H PRN nausea and 05/04/23 05/18/23 History vomiting ropinirole 1 mg tablet 1 mg PO QAM 05/04/23 05/18/23 History ropinirole 2 mg tablet 2 mg PO QPM 05/04/23 05/18/23 History trazodone 50 mg tablet 200 mg PO QPM 05/04/23 05/18/23 History alendronate 70 mg tablet (Fosamax) 70 mg PO QWEEK fusion 12 weeks #12 05/12/23 05/18/23 Rx tabs cholecalciferol (vitamin D3) 50 50 mcg PO QDAY 3 months #90 caps 05/12/23 05/18/23 Rx mcg (2,000 unit) capsule (Vitamin D3) enoxaparin 40 mg/0.4 mL 40 mg (0.4 mL) subcut QDAY 05/12/23 05/18/23 Rx subcutaneous syringe (Lovenox) prohylaxis 30 days #12 mL ondansetron 4 mg disintegrating 4 mg PO QDAY PRN nausea and 05/12/23 05/18/23 Rx tablet vomiting 3 days #6 tabs sennosides 8.6 mg tablet (senna) 8.6 mg PO BID PRN constipation 3 05/12/23 05/18/23 Rx days #6 tabs lorazepam 0.5 mg tablet 1 mg PO QAM 05/18/23 05/18/23 History Allergies Allergy/AdvReac Type Severity Reaction Status Date / Time risperidone [From Risperdal] AdvReac Mild breast Verified 05/18/23 00:13 nipples leak Exam Constitutional Vital Signs, click to edit/add: Last Vital Signs Temp 99.7 F H 05/18/23 03:55 Pulse 80 05/18/23 03:55 Resp 16 05/18/23 03:55 BP 127/84 H 05/18/23 03:55 Pulse Ox 94 L 05/18/23 03:55 O2 Del Method Room Air 05/18/23 04:07 Documenting provider has reviewed patient's vital signs: yes Common normals: apparent distress HENMT Common normals: normocephalic Chest Common normals: inspection of chest normal Respiratory Common normals: normal respiratory effort, no retractions and clear to auscultation bilaterally Cardio Common normals: regular rhythm and no murmurs; irregular rate Rate: tachycardic Extremity Common normals: abnormal to inspection (See note from college admissions counselor) Neuro Common normals: oriented x3 and CN's II-XII intact bilaterally Results Labs Labs: Short CBC 05/18/23 05/18/23 Range/Units 00:30 05:50 WBC 6.7 5.7 (4.0-11.0) 10^3/uL Hgb 10.9 L 9.4 L (12.0-16.0) g/dL Hct 32.9 L 29.0 L (36.0-48.0) % Plt Count 387 304 (150-450) 10^3/uL BMP 05/18/23 05/18/23 00:30 05:50 Sodium 137 141 Potassium 3.4 L 3.3 L Chloride 104 107 Carbon Dioxide 25.2 27.0 BUN 12.0 8.0 Creatinine 0.79 0.60 Glucose 121 H 116 H Calcium 8.7 8.1 L Liver Function 05/18/23 Range/Units 00:30 Total Bilirubin 0.3 (0.2-1.0) mg/dL AST 50 H (15-37) U/L ALT 58 (14-59) U/L Alkaline Phosphatase 191 H (46-116) U/L Albumin 3.2 L (3.4-5.0) g/dL Assessment and Plan Assessment and Plan (1) Post op infection: (2) Cellulitis: (3) Posterior tibial tendon dysfunction (PTTD) of right lower extremity: Plan Fever, sinus tachycardia, source of fever, meeting criteria for postoperative complications leading to sepsis, not severe sepsis, although white blood cell count is not elevated she is significant risk for infection. Is currently on Zosyn and vancomycin. Blood cultures are pending. Ultrasound check to rule out DVT and that was negative making the concern for cellulitis higher. Patient could likely benefit from a 2 to 3-day hospital medical stay to prevent loss of limb Bsulnfsdyaxn-fzdkyu-Kxiebmof current medications Hypokalemia-supplement Mild hyperglycemia likely secondary to the recent surgery and possible related to the sepsis-monitor daily Iron deficiency anemia as well as anemia of acute blood loss secondary to surgery-monitor daily Highly unlikely patient will be improved to the point that she can be discharged within the first 24 hours and likely 2 to 3-day hospital stay would benefit to track blood cultures, Plan per podiatry..
--- NOTE | 2023-05-18 11:02 | PM.PODCN1 ---
[facility] - Podiatry Data of Consult Patient: known to practice within the last 3 years Consult date: 05/18/23 Requesting physician: Aleks Bradford MD Primary care provider: Isatu CASTRO Consult Narrative Reason for consult: Concern for postop infection Narrative: Patient is a 53-year-old female with past medical history significant for anxiety, asthma, constipation, depression,, high cholesterol, hypertension, PTSD, restless leg, sleep apnea with history of bilateral foot surgery most recently had surgery with us six days ago for right triple arthrodesis. She initially had some troubles postoperatively with pain management as well as ran a fever. She stayed in the hospital over the weekend and was discharged on Monday when she started to feel better. She has continued to have worsening pain and then started to run a fever AGAIN. She called Dr. Felix last night for concerns of pain and fever who instructed her to come to the hospital to be evaluated. She states that she was taking 2-3 oxycodone per day for pain but no Tylenol Or other supplementation. She was ice and elevating. sTATES THAT SHE IS ALSO EXPERIENCING SOME BACK PAIN WELL RIGHT FOOT PAIN. dENIES ANY OTHER PEDAL COMPLAINTS APPEARED DENIES ANY OTHER CONSTITUTIONAL SYMPTOMS. cc:: CC: Aleks Bradford MD Review of Systems ROS Status of ROS 10 or more systems reviewed and unremarkable except as noted in history and below [facility] Medical History (Updated 05/18/23 @ 02:38 by Lamont Hernandez MD) Surgical History (Updated 05/04/23 @ 08:39 by Leonarda Ruiz) (1987) (03/2022) (2014) (2020) Family History (Updated 05/18/23 @ 02:39 by Olivia Salazar) Other Family history of Alzheimer's disease Family history of coronary artery disease Family history of heart disease Family history of hypertension Social History (Updated 05/18/23 @ 02:40 by Olivia Salazar) Within the past year, how often did you have a drink containing alcohol: never Score interpretation: A score less than 3 is consistent with normal alcohol consumption. Smoking status: Never smoker Non-prescribed substance use: denies use Previous occupational history: unemployed Highest level of school completed/degree received: some college, no degree Little interest or pleasure in doing things: not at all Feeling down, depressed, or hopeless: not at all Feel stressed/tense/nervous/anxious/difficulty sleeping: only a little Due to disability, difficulty making decisions: No Do you think of yourself as: straight/heterosexual Gender Identity: female Exam Narrative Exam Narrative: Dermatological: Incisions noted to the dorsal and lateral AND POSTERIOR RIGHT FOOT with sutures intact, well coapted, no drainage, no erythema, no purulence, no signs of infection Edema noted to the right lower chin be consistent with postoperative status pOSSIBLE hematoma versus seroma noted around the lateral malleolus versus swelling Nerve: Sensation intact to light touch Musculoskeletal Strength deferred Range of motion deferred PaIN TO palpation of the right lower extremity Pain to palpation of the right calf muscle Wiggles digits With minimal discomfort cOMPARTMENTS SOFT AND COMPRESSIBLE Vascular: Edema noted to the right lower extremity Pulses nonpalpable due to edema Capillary refill intact Imaging: X-rays taken in the emergency room last night demonstrating hardware across the right subtalar and talonavicular joint without any overall change in alignment, no subcutaneous air CT scan REVIEWED THIS MORNING DEMONSTRATING THE ABOVE-MENTIONED HARDWARE as well as previous hardware, Radiologist does not know any abscess, hematoma or fluid collection, I believe there is a relatively small hematoma noted around the lateral malleolus just proximal to her incision Constitutional Vital Signs, click to edit/add: Last Vital Signs Temp 99.7 F H 05/18/23 03:55 Pulse 80 05/18/23 03:55 Resp 16 05/18/23 03:55 BP 127/84 H 05/18/23 03:55 Pulse Ox 94 L 05/18/23 03:55 O2 Del Method Room Air 05/18/23 04:07 Assessment and Plan Assessment and Plan (1) Post op infection: (2) Cellulitis: (3) Posterior tibial tendon dysfunction (PTTD) of right lower extremity: Plan Assessment: Status post right flatfoot reconstruction, hindfoot fusion Postoperative pain Plan: Patient seen and evaluated Labs and vitals reviewed Physical exam findings discussed with the patient Noted elevated fever Which was not consistent that had a few spikes, aFEBRILE ON ADMISSION ALTHOUGH SHE HAS SPIKED A FEEVER TODAY Denies any chest or Breathing problems Denies any constipation or urinary problems Noted nO LEUKOCYTOSIS, ELEVATED esr IS PROBABLY SECONDARY TO SURGERY LESS THAN A WEEK AGO I do not see a CRP in the chart She finished postoperative antibiotics DURING HER LAST ADMISSION, hospitalist team has started her on broad-spectrum antibiotics We will attempt pain management with oxycodone, Lyrica, Tylenol, Toradol We asked the anestthesia team to perform another postoperative block for her today tHEY'RE GOING TO DO THIS FOR US THIS MORNING wE WILL RE-SPLINT her after she has a postoperative block while she is more comfortable We will send her home with [place] and educated her on taking+ ibuprofen plus Lyrica She is in agreement to try this She is icing and elevating, recommend continue with this Ultrasound was negative for deep vein thrombosis Chest x-ray was negative for atelectasis or pneumonia Continue with Lovenox for deep vein thrombosis prophylaxis She takes lorazepam at home for anxiety, I discussed with her reviewing this with her Internal medicine doctor She may call if questions or concerns She'll follow up one week from discharge She is in agreement Please page questions or concerns
[2023-05-18 11:19] VITALS: BMI 29.2
--- NOTE | 2023-05-18 11:28 | DIETREC ---
Nutrition Recommendations: 1. Consider adding Wilfrid 1 packet BID.
[2023-05-18] MEDS: MIDAZOLAM HCL 2 MG/2 ML VIAL IV (11:56)
[2023-05-18] MEDS: LORAZEPAM 0.5 MG TABLET 1 MG PO (12:47)
[2023-05-18] MEDS: MECLIZINE HCL 12.5 MG TABLET 25 MG PO (12:47)
[2023-05-18] MEDS: OMEPRAZOLE 40 MG CAPSULE.DR PO (12:47)
[2023-05-18] MEDS: ENOXAPARIN SODIUM 40 MG/0.4 ML SYRINGE SUBQ (12:47)
[2023-05-18] MEDS: ATORVASTATIN CALCIUM 20 MG TABLET PO (12:47)
[2023-05-18] MEDS: KETOROLAC TROMETHAMINE 30 MG/ML VIAL IM (12:47)
[2023-05-18] MEDS: CHOLECALCIFEROL (VITAMIN D3) 25 MCG/1,000 UNITS TABLET 50 MCG PO (12:48)
[2023-05-18] MEDS: ROPINIROLE HCL 1 MG TABLET PO (12:48)
--- NOTE | 2023-05-18 12:48 | PC.NURSE ---
pt brought to the holding area bay 3 at 1040 per and for pt to have a nerve block completed due to uncontrolled post op pain. pt identifed and anesthesia consent was obtained,pt was marked by Dr.Ryan Oviedo. pt placed on 2L O2 via nasal cannula per policy and time out was completed at 1132 with and AMKI Gutierrez present during timeout. pt placed on monitor to have vitals monitored throughout procedure. pt positioned per anesthesia and the femoral block began at 1133 and was completed at 1138. pt repositioned per anesthesia to begin the popliteal block at 1139 and was completed at 1145. pt tolerated procedure well. pts bed to lowest position with siderails up and call light within reach. pt remains on monitor until taken back to her Med/surg room,vitals were WNL throughout the procedure. completed a bedside dresssing change at 1210. pts toes are pink and warm with good capillary refill,pt unable to wiggle toes and has no complaints of pain at this time. pt taken back to room 211 at 1230 and report was given to MAKI Meléndez.
[2023-05-18] MEDS: ATENOLOL 25 MG TABLET PO (13:10)
[2023-05-18 13:57] VITALS: BP 119/77; PULSE 82; RESP 18; TEMP 36.7; O2SAT 93
[2023-05-18 16:53] LABS: Bilirubin Urine NEGATIVE (NEGATIVE); Blood Urine NEGATIVE (NEGATIVE); Clarity Urine CLEAR (CLEAR); Color Urine LT. YELLOW (YELLOW); Glucose Urine UA NEGATIVE (NEGATIVE); Ketones Urine NEGATIVE (NEGATIVE); Leukocyte Esterase Urine NEGATIVE (NEGATIVE); Nitrite Urine NEGATIVE (NEGATIVE); Protein Urine NEGATIVE (NEG/TRACE); Specific Gravity Urine 1.015 (1.005-1.025); Urobilinogen Urine 0.2 EU/dL (0.2-1.0)
[2023-05-18 17:13] LABS: Bacteria Urine NONE SEEN #/HPF (NONE SEEN); Crystals Seen? None Seen #/HPF (None Seen); Mucus Urine NONE SEEN (NONE SEEN); RBC Urine NONE SEEN #/HPF (0-2); Squamous Epithelial Cell Urine FEW #/LPF (NONE/RARE); WBC Urine NONE SEEN #/HPF (NONE SEEN)
[2023-05-18 17:14] LABS: Cast Seen? NONE SEEN #/LPF (NONE SEEN); Urine Culture Indicated ALREADY ORDERED
[2023-05-18 20:26] VITALS: O2SAT 98
[2023-05-18] MEDS: TRAZODONE HCL 50 MG TABLET 200 MG PO (20:41)
[2023-05-18] MEDS: POTASSIUM CHLORIDE 10 MEQ ER TABLET 20 MEQ PO (20:41)
[2023-05-18] MEDS: PREGABALIN 75 MG CAPSULE PO (20:41)
[2023-05-18] MEDS: ROPINIROLE HCL 1 MG TABLET 2 MG PO (20:42)
[2023-05-18 21:21] VITALS: BP 144/78; PULSE 71; RESP 18; TEMP 37.2; O2SAT 95
[2023-05-19] MEDS: PIPERACILLIN SODIUM/TAZOBACTAM 3.375 GM in 0.9 % SODIUM CHLORIDE 50 ML IV (02:22)
[2023-05-19] MEDS: VANCOMYCIN HCL 1,000 MG in 0.9 % SODIUM CHLORIDE 250 ML 250 MG IV (04:38)
[2023-05-19 04:41] LABS: Basophils Percent Auto 0.4 % (0.2-2.0); Hematocrit 30.4 % (36.0-48.0); Hemoglobin 10.1 g/dL (12.0-16.0); Immature Granulocytes Abs Auto 0.03 10^3/uL (0.00-0.03); Immature Granulocytes Pct Auto 0.5 % (0.0-0.5); Lymphocytes Percent Auto 18.2 % (20.5-60.0); Mean Corpuscular HGB Conc 33.2 g/dL (29.9-35.2); Mean Corpuscular Hemoglobin 27.6 pg (26.7-34.0); Mean Corpuscular Volume 83.1 fL (81.0-99.0); Monocytes Absolute Auto 0.4 10^3/uL (0.3-0.8); Monocytes Percent Auto 6.8 % (1.7-12.0); Neutrophils Absolute Auto 4.1 10^3/uL (1.4-6.5); Neutrophils Percent Auto 74.1 % (43.0-75.0); Platelet Count 343 10^3/uL (150-450); Red Blood Count 3.66 10^6/uL (4.20-5.40); Red Cell Distribution Width 12.3 % (11.0-15.0); White Blood Count 5.6 10^3/uL (4.0-11.0)
[2023-05-19 05:01] LABS: Erythrocyte Sedimentation Rate 41 mm/hr (<=30)
[2023-05-19 05:02] LABS: Alanine Aminotransferase 54 U/L (14-59); Albumin Globulin Ratio 0.8; Albumin Level 2.8 g/dL (3.4-5.0); Alkaline Phosphatase 168 U/L (46-116); Anion Gap 11.5; Aspartate Amino Transferase 44 U/L (15-37); BUN Creatinine Ratio 8.7; Bilirubin Total 0.3 mg/dL (0.2-1.0); C Reactive Protein 3.5 mg/dL (<=1.0); Calcium 8.2 mg/dL (8.5-10.1); Carbon Dioxide 24.8 mmol/L (21.0-32.0); Chloride 107 mmol/L (98-107); Estimated GFR (African America >60 (>=60); Estimated GFR (Non-African Ame >60 (>=60); Globulin 3.6 g/dL; Glucose 162 mg/dL (74-106); Potassium 4.3 mmol/L (3.5-5.1); Sodium 139 mmol/L (136-145); Total Protein 6.4 g/dL (6.4-8.2)
[2023-05-19 05:37] VITALS: BP 150/81; PULSE 63; RESP 16; TEMP 37.3; O2SAT 97
[2023-05-19] MEDS: CHOLECALCIFEROL (VITAMIN D3) 25 MCG/1,000 UNITS TABLET 50 MCG PO (08:06)
[2023-05-19] MEDS: ENOXAPARIN SODIUM 40 MG/0.4 ML SYRINGE SUBQ (08:06)
[2023-05-19] MEDS: ATORVASTATIN CALCIUM 20 MG TABLET PO (08:07)
[2023-05-19] MEDS: ATENOLOL 25 MG TABLET PO (08:07)
[2023-05-19] MEDS: OMEPRAZOLE 40 MG CAPSULE.DR PO (08:07)
[2023-05-19] MEDS: PREGABALIN 75 MG CAPSULE PO (08:07)
[2023-05-19] MEDS: POTASSIUM CHLORIDE 10 MEQ ER TABLET 20 MEQ PO (08:07)
[2023-05-19] MEDS: ROPINIROLE HCL 1 MG TABLET PO (08:08)
--- NOTE | 2023-05-19 08:51 | CM.NOTE ---
Rounds made with maurilio Barba to discharge to home today. No discharge needs identified.
--- NOTE | 2023-05-19 09:13 | P.DS_ITS ---
DS: Providers Provider Date of admission: 05/18/23 04:21 Primary care physician: Isatu CASTRO Consults: 05/18/23 04:25 Consult to Podiatry Routine Consulting Provider: Jacob Felix DS: Diagnosis Discharge Diagnosis (1) Post op infection: (2) Cellulitis: (3) Posterior tibial tendon dysfunction (PTTD) of right lower extremity: Plan [place] [id number] History & Physical Report Signed Patient: ELSIE FUENTES MR#: [id number] : 1970 Acct:[id number] Age/Sex: 53 / F ADM Date: 05/18/23 Loc: MS 211-1 Date of Service:05/18/[address]: Aleks Bradford M.D. cc: Aleks Bradford M.D.; Isatu CASTRO ~ H&P: HPI History of Present Illness Chief complaint: fever post complications Narrative: Patient presented to the emergency room with fever, increasing pain and swelling of the foot.? She recent discharge from podiatric surgery.? She did have a low- grade fever couple days prior to discharge, repeat UAs were negative chest x-ray was clear and fever did not stay elevated.? Evaluation in the emergency room with increasing swelling and pain and fever patient was admitted for possible postoperative complications Review of Systems ROS ? ? Constitutional Reports: fever and chills; Denies: change in weight ? ? Cardiovascular Denies: chest pain ? ? Respiratory Reports: cough; Denies: shortness of breath ? ? Gastrointestinal Denies: abdominal pain ? ? Genitourinary Denies: painful urination or urinary frequency ? PFSH PFSH Medical History?(Updated 05/18/23 @ 02:38 by Lamont Hernandez MD) Surgical History?(Updated 05/04/23 @ 08:39 by Leonarda Ruiz) ?(1987) (03/2022) (2014) (2020) Family History?(Updated 05/18/23 @ 02:39 by Olivia Salazar) Other Family history of Alzheimer's disease Family history of coronary artery disease Family history of heart disease Family history of hypertension Social History?(Updated 05/18/23 @ 02:40 by Olivia Salazar) Within the past year, how often did you have a drink containing alcohol:? never Score interpretation:? A score less than 3 is consistent with normal alcohol consumption. Smoking status:? Never smoker Non-prescribed substance use:? denies use Previous occupational history:? unemployed Highest level of school completed/degree received:? some college, no degree Little interest or pleasure in doing things:? not at all Feeling down, depressed, or hopeless:? not at all Feel stressed/tense/nervous/anxious/difficulty sleeping:? only a little Due to disability, difficulty making decisions:? No Do you think of yourself as:? straight/heterosexual Gender Identity:? female Meds Home Medications and Allergies Home Medications ?Medication ?Instructions ?Recorded ?Confirmed ?Type albuterol sulfate 90 mcg/actuation 2 puff inhalation Q4H PRN 05/04/23 05/18/23 History aerosol inhaler (Ventolin HFA) shortness of breath or wheezing ? ? ? atenolol 25 mg tablet 25 mg PO Q24H 05/04/23 05/18/23 History atorvastatin 20 mg tablet 20 mg PO QAM 05/04/23 05/18/23 History baclofen 10 mg tablet 20 mg PO Q12H PRN muscle spasm 05/04/23 05/18/23 History dexlansoprazole 60 mg 60 mg PO QAM 05/04/23 05/18/23 History capsule,biphase delayed release ? dexpanthenol-choline bitart 50 1 tab PO QAM 05/04/23 05/18/23 History mg-25 mg tablet ? eszopiclone 3 mg tablet (Lunesta) 3 mg PO QPM 05/04/23 05/18/23 History fremanezumab-vfrm 225 mg/1.5 mL 125 mg subcut .[id number] 05/04/23 05/18/23 History subcutaneous auto-injector (Ajovy) ? ketorolac 10 mg tablet 10 mg PO Q8H PRN pain 05/04/23 05/18/23 History meclizine 25 mg tablet 25 mg PO QDAY PRN motion sickness 05/04/23 05/18/23 History promethazine 12.5 mg tablet 12.5 mg PO Q12H PRN nausea and 05/04/23 05/18/23 History ? vomiting ? ? ? ropinirole 1 mg tablet 1 mg PO QAM 05/04/23 05/18/23 History ropinirole 2 mg tablet 2 mg PO QPM 05/04/23 05/18/23 History trazodone 50 mg tablet 200 mg PO QPM 05/04/23 05/18/23 History alendronate 70 mg tablet (Fosamax) 70 mg PO QWEEK fusion 12 weeks #12 05/12/23 05/18/23 Rx ? tabs ? ? ? cholecalciferol (vitamin D3) 50 50 mcg PO QDAY 3 months #90 caps 05/12/23 05/18/23 Rx mcg (2,000 unit) capsule (Vitamin ? D3) ? enoxaparin 40 mg/0.4 mL 40 mg (0.4 mL) subcut QDAY 05/12/23 05/18/23 Rx subcutaneous syringe (Lovenox) prohylaxis 30 days #12 mL ? ? ? ondansetron 4 mg disintegrating 4 mg PO QDAY PRN nausea and 05/12/23 05/18/23 Rx tablet vomiting 3 days #6 tabs ? ? ? sennosides 8.6 mg tablet (senna) 8.6 mg PO BID PRN constipation 3 05/12/23 05/18/23 Rx ? days #6 tabs ? ? ? lorazepam 0.5 mg tablet 1 mg PO QAM 05/18/23 05/18/23 History Allergies Allergy/AdvReac Type Severity Reaction Status Date / Time risperidone [From Risperdal] AdvReac Mild breast Verified 05/18/23 00:13 D ? ? ? nipples ? leak ? ? Exam Constitutional Vital Signs, click to edit/add: Last Vital Signs Temp ?99.7 F H ?05/18/23 03:55 Pulse ?80 ?05/18/23 03:55 Resp ?16 ?05/18/23 03:55 BP ?127/84 H ?05/18/23 03:55 Pulse Ox ?94 L ?05/18/23 03:55 O2 Del Method ?Room Air ?05/18/23 04:07 Documenting provider has reviewed patient's vital signs: yes Common normals: apparent distress HENMT Common normals: normocephalic Chest Common normals: inspection of chest normal Respiratory Common normals: normal respiratory effort, no retractions and clear to auscultation bilaterally Cardio Common normals: regular rhythm and no murmurs; irregular rate Rate: tachycardic Extremity Common normals: abnormal to inspection (See note from forensic sergeant) Neuro Common normals: oriented x3 and CN's II-XII intact bilaterally Results Labs Labs: Short CBC ? 05/18/23 05/18/23 Range/Units ? 00:30 05:50 ? WBC ?6.7 ?5.7 ?(4.0-11.0)? 10^3/uL Hgb ?10.9 L ?9.4 L ?(12.0-16.0)? g/dL Hct ?32.9 L ?29.0 L ?(36.0-48.0)? % Plt Count ?387 ?304 ?(150-450)? 10^3/uL BMP ? 05/18/23 05/18/23 ? 00:30 05:50 Sodium ?137 ?141 Potassium ?3.4 L ?3.3 L Chloride ?104 ?107 C Carbon Dioxide ?25.2 ?27.0 BUN ?12.0 ?8.0 Creatinine ?0.79 ?0.60 Glucose ?121 H ?116 H Calcium ?8.7 ?8.1 L Liver Function C ? 05/18/23 Range/Units ? 00:30 ? Total Bilirubin ?0.3 ?(0.2-1.0)? mg/dL AST ?50 H ?(15-37)? U/L ALT ?58 ?(14-59)? U/L C Alkaline Phosphatase ?191 H ?(46-116)? U/L Albumin ?3.2 L ?(3.4-5.0)? g/dL Assessment and Plan Assessment and Plan (1) Post op infection: (2) Cellulitis: (3) Posterior tibial tendon dysfunction (PTTD) of right lower extremity: Plan Fever, sinus tachycardia, source of fever, meeting criteria for postoperative complications leading to sepsis, not severe sepsis, although white blood cell count is not elevated she is significant risk for infection.? Is currently on Zosyn and vancomycin.? Blood cultures are pending.? Ultrasound check to rule out DVT and that was negative making the concern for cellulitis higher.? Patient could likely benefit from a 2 to 3-day hospital medical stay to prevent loss of limb [id number]-[id number]-Fpicmjao current medications Hypokalemia-supplement Mild hyperglycemia likely secondary to the recent surgery and possible related to the sepsis-monitor daily Iron deficiency anemia as well as anemia of acute blood loss secondary to surgery-monitor daily Highly unlikely patient will be improved to the point that she can be discharged within the first 24 hours and likely 2 to 3-day hospital stay would benefit ?to track blood cultures,? Plan per podiatry.. DS: Summary Hospital Course Hospital Course: Patient with high suspicions for sepsis. She had increasing pain, swelling, erythema, fever at home. Here her temperature reached a maximum of 100.2. White blood cell count remained stable throughout the hospital stay. She was started on IV antibiotics secondary to the highly suspicious cellulitis with proceeding to sepsis. Patient however is much improved today. Her pain is improved but she did receive a nerve block yesterday. At this point she feels comfortable going home and will be closely monitored at home and if any signs of getting worse fever, chills she is to present back to the emergency room. We will send home with oral antibiotics. Otherwise plan per surgery. See PCP per routine Time Spent with Patient Time attestation: Total time spent providing and/or coordinating discharge services: Exam Constitutional Vital Signs, click to edit/add: Last Vital Signs Temp 99.2 F 05/19/23 05:37 Pulse 63 05/19/23 05:37 Resp 16 05/19/23 05:37 BP 150/81 H 05/19/23 05:37 Pulse Ox 97 05/19/23 05:37 O2 Del Method Room Air 05/19/23 05:37 Documenting provider has reviewed patient's vital signs: yes Common normals: apparent distress [facility] Common normals: normocephalic Chest Common normals: inspection of chest normal Respiratory Common normals: normal respiratory effort, no retractions and clear to auscultation bilaterally Cardio Common normals: regular rhythm and no murmurs; irregular rate Rate: tachycardic Extremity Common normals: abnormal to inspection (See note from forensic sergeant) Other: Leg appears completely wrapped so unable to evaluate. See podiatric notes Neuro Common normals: oriented x3 and CN's II-XII intact bilaterally DS: Data Data Completed and Pending Labs on day of discharge: Labs from last 24 hours 05/19/23 05/18/23 04:24 16:08 WBC 5.6 RBC 3.66 L Hgb 10.1 L Hct 30.4 L MCV 83.1 MCH 27.6 MCHC 33.2 RDW 12.3 Plt Count 343 MPV 9.0 L Neut % (Auto) 74.1 Lymph % (Auto) 18.2 L [place] % (Auto) 6.8 Eos % (Auto) 0.0 L Baso % (Auto) 0.4 Neut # (Auto) 4.1 Lymph # (Auto) 1.0 L [place] # (Auto) 0.4 Eos # (Auto) 0.0 Baso # (Auto) 0.0 Abs Immat Gran (auto) 0.03 Imm/Tot Granulo (auto) 0.5 ESR 41 H Sodium 139 Potassium 4.3 Chloride 107 Carbon Dioxide 24.8 Anion Gap 11.5 BUN 6.0 L Creatinine 0.69 Est GFR ( Amer) >60 Est GFR (Non-Af Amer) >60 BUN/Creatinine Ratio 8.7 Glucose 162 H Calcium 8.2 L Total Bilirubin 0.3 AST 44 H ALT 54 Alkaline Phosphatase 168 H C-Reactive Protein 3.5 H Total Protein 6.4 Albumin 2.8 L Globulin 3.6 Albumin/Globulin Ratio 0.8 Urine Color Lt. yellow Urine Clarity Clear Urine pH 7.0 Ur Specific [place] 1.015 Urine Protein Negative Urine Glucose (UA) Negative Urine Ketones Negative Urine Occult Blood Negative Urine Nitrite Negative Urine Bilirubin Negative Urine Urobilinogen 0.2 Ur Leukocyte Esterase Negative Urine RBC None seen Urine WBC None seen Ur Squamous Epith Cells Few A Urine Crystals None seen Urine Bacteria None seen Urine Casts None seen Urine Mucus None seen Ur Culture Indicated? Already ordered Discharge Plan Discharge Disposition: Home, Self-Care Discharge Medications: New pregabalin [Lyrica] 75 mg capsule 75 mg PO BID 7 Days Qty: 14 0RF amoxicillin-pot clavulanate 875-125 mg tablet 1 tab PO Q12H Qty: 20 0RF doxycycline hyclate 100 mg capsule 100 mg PO BID 10 Days Qty: 20 0RF fluconazole [Diflucan] 100 mg tablet 100 mg PO DAILY Qty: 10 0RF Continued albuterol sulfate [Ventolin HFA] 90 mcg/actuation HFA aerosol inhaler 2 puff INHALATION Q4H PRN (Reason: shortness of breath or wheezing) atenolol 25 mg tablet 25 mg PO Q24H baclofen 10 mg tablet 20 mg PO Q12H PRN (Reason: muscle spasm) atorvastatin 20 mg tablet 20 mg PO QAM dexlansoprazole 60 mg capsule,biphase delayed releas 60 mg PO QAM ketorolac 10 mg tablet 10 mg PO Q8H PRN (Reason: pain) meclizine 25 mg tablet 25 mg PO QDAY PRN (Reason: motion sickness) promethazine 12.5 mg tablet 12.5 mg PO Q12H PRN (Reason: nausea and vomiting) ropinirole 1 mg tablet 1 mg PO QAM ropinirole 2 mg tablet 2 mg PO QPM trazodone 50 mg tablet 200 mg PO QPM Ajovy Autoinjector 225 mg/1.5 mL auto-injector 125 mg subcut .[id number] Patient Comments: on the 1st of every month eszopiclone [Lunesta] 3 mg tablet 3 mg PO QPM dexpanthenol-choline bitart 50-25 mg tablet 1 tab PO QAM Rx Instructions: PER PT RETAIL FILL HX - 04/13/23 (30 DAY SUPPLY) DEXPANTHENOL (BULK) 100% LIQUID - NO DIRECTIONS AVAILABLE ON RETAIL HX sennosides [senna] 8.6 mg tablet 8.6 mg PO BID PRN (Reason: constipation) 3 Days Qty: 6 0RF alendronate [Fosamax] 70 mg tablet 70 mg PO QWEEK 84 Days Qty: 12 0RF ondansetron 4 mg tablet,disintegrating 4 mg PO QDAY PRN (Reason: nausea and vomiting) 3 Days Qty: 6 0RF enoxaparin [Lovenox] 40 mg/0.4 mL syringe 40 mg subcut QDAY MDD 40mg 30 Days Qty: 12 0RF cholecalciferol (vitamin D3) [Vitamin D3] 50 mcg (2,000 unit) capsule 50 mcg PO QDAY 90 Days Qty: 90 0RF lorazepam 0.5 mg tablet 1 mg PO QAM Activity Detail: non weight bearing to right foot Diet: advance to your usual diet Patient Instructions: Doxycycline (By mouth), Amoxicillin/Clavulanate Potassium (By mouth), Fluconazole (By mouth), Pregabalin (By mouth) Forms: Portal Instructions Follow Up Appointments: dr felix monday05/23/23 @ 1 pm Discharge Date/Time: 05/19/23 10:36
--- NOTE | 2023-05-23 10:49 | CM.DCFOLLOWU ---
Person spoke with: Patient How are you feeling? I am feeling better this time. How is your pain? Right now about a 6/10. The patient medications are keeping my pain under control and taking the edge off. Did you understand your discharge instructions? Yes. Do you have any questions about your discharge instructions? No. Were you given any prescriptions at discharge? Yes. Were you able to get your prescriptions filled? Yes Do you understand how to take your medications as ordered? Yes Do you have any questions about your follow up appointment and do you plan to keep your follow up appointment? Follow up appt. today with Dr. Felix at 1pm Is there anything else that you would like to discuss? No Questions/Comments/Concerns/Other: N/A
== END 2023-05-19 10:36 | disposition home or self-care (01) ==
LOC: ER 02:38 → MS 05-19 09:17
PROVIDERS: Internal Medicine; Admitting Provider Family Medicine; Emergency Provider Internal Medicine; PCP Family Medicine; Visit Provider Family Medicine
DX: T81.40XA Infection following a procedure, unspecified, initial encounter (principal); L03.115 Cellulitis of right lower limb; M76.821 Posterior tibial tendinitis, right leg; I10 Essential (primary) hypertension; E87.6 Hypokalemia; R73.9 Hyperglycemia, unspecified; D50.9 Iron deficiency anemia, unspecified; D62 Acute posthemorrhagic anemia; Z98.1 Arthrodesis status; G89.18 Other acute postprocedural pain
CPT/HCPCS: 36415; 51701; 51798; 64445; 64447; 71045; 73610; 73630; 73701; 76000; 76942; 80048; 80053; 80202; 81001; 81003; 83605; 85025; 85652; 86140; 87040; 87086; 93970; 94667; 94761; 96365; 96366; 96367; 96372; 96375; 96376; 97161; 99285; G0378; J1170; J2704; J3370; Q3014; Q9967

== ENCOUNTER 2023-06-06 14:11 | Outpatient (OUT) | payer OTHER, SELFPAY ==
--- NOTE | 2023-06-06 14:15 | XR_ITS ---
[address] [address] Patient Name: ELSIE FUENTES MRN: [id number] date: 1970 Sex: F Assigned Patient Location: [facility] Current Patient Location: [facility] Accession/Order Number: [id number] Exam Date: 06/06/2023 14:35 Report Date: 06/06/2023 18:37 At the request of: NIECY SERNA Procedure: XR foot RT min 3V PROCEDURE: XR foot RT min 3V COMPARISON: 05/18/2023, 05/12/2023 HISTORY: LEFT FOOT PAIN FINDINGS: BONES:Remote osteotomy head of first metatarsal fixed with a single screw. Wedge osteotomy and spacer placement medial cuneiform and anterior calcaneus. Posterior calcaneal osteotomy with subtalar fusion using 2 cannulated screws. Talonavicular fusion with 2 cannulated screws. 2 surgical joshua across the lateral calcaneocuboid joint. No acute fracture, dislocation or mechanical failure. SOFT TISSUES:Dorsal soft tissue swelling EFFUSION:None visible. OTHER: Negative. XR/XR foot RT min 3V IMPRESSION: Stable postsurgical changes with no mechanical failure Electronically authenticated by: NICKI DACOSTA Date: 06/06/2023 18:37
== END 2023-06-06 14:12 | disposition home or self-care (01) ==
LOC: RAD 14:11
PROVIDERS: PCP Family Medicine; Visit Provider Physician Assistant
DX: M19.071 Primary osteoarthritis, right ankle and foot (principal)
CPT/HCPCS: 73630

== ENCOUNTER 2023-06-09 21:00 | Emergency (ER) | payer OTHER, SELFPAY ==
[2023-06-09 21:09] VITALS: BP 137/80; PULSE 68; RESP 16; TEMP 37; O2SAT 97; BMI 27.5
--- NOTE | 2023-06-09 21:23 | ED_ITS ---
HPI - Extremity Problem General Chief complaint: Extremity Problem, Nontraumatic Stated complaint: right foot pain Time Seen by Provider: 06/09/23 21:06 Source: patient Mode of arrival: walk-in Limitations: no limitations History of Present Illness HPI Narrative: surgery right foot 05/12/23. Seen 3-4 days ago and had stitches removed. Continues to have pain and states occ drainage from the incision. Also feels the pain is increasing. No systemic symptoms. No nausea, vomiting. No fever or chills Related Data Home Medications Medication Instructions Recorded Confirmed albuterol sulfate 90 mcg/actuation 2 puff inhalation Q4H PRN 05/04/23 05/18/23 aerosol inhaler (Ventolin HFA) shortness of breath or wheezing atenolol 25 mg tablet 25 mg PO Q24H 05/04/23 05/18/23 atorvastatin 20 mg tablet 20 mg PO QAM 05/04/23 05/18/23 baclofen 10 mg tablet 20 mg PO Q12H PRN muscle spasm 05/04/23 05/18/23 dexlansoprazole 60 mg 60 mg PO QAM 05/04/23 05/18/23 capsule,biphase delayed release dexpanthenol-choline bitart 50 1 tab PO QAM 05/04/23 05/18/23 mg-25 mg tablet eszopiclone 3 mg tablet (Lunesta) 3 mg PO QPM 05/04/23 05/18/23 fremanezumab-vfrm 225 mg/1.5 mL 125 mg subcut .[id number] 05/04/23 05/18/23 subcutaneous auto-injector (Ajovy) ropinirole 1 mg tablet 1 mg PO QAM 05/04/23 05/18/23 ropinirole 2 mg tablet 2 mg PO QPM 05/04/23 05/18/23 trazodone 50 mg tablet 200 mg PO QPM 05/04/23 05/18/23 lorazepam 0.5 mg tablet 1 mg PO QAM 05/18/23 05/18/23 Previous Rx's Medication Instructions Recorded alendronate 70 mg tablet (Fosamax) 70 mg PO QWEEK fusion 12 weeks #12 05/12/23 tabs cholecalciferol (vitamin D3) 50 50 mcg PO QDAY 3 months #90 caps 05/12/23 mcg (2,000 unit) capsule (Vitamin D3) enoxaparin 40 mg/0.4 mL 40 mg (0.4 mL) subcut QDAY 05/12/23 subcutaneous syringe (Lovenox) prohylaxis 30 days #12 mL amoxicillin 875 mg-potassium 1 tab PO Q12H #20 tabs 05/19/23 clavulanate 125 mg tablet Allergies Allergy/AdvReac Type Severity Reaction Status Date / Time risperidone [From Risperdal] AdvReac Mild breast Verified 05/18/23 00:13 nipples leak Review of Systems ROS Status of ROS 10 or more systems reviewed and unremarkable except as noted in history and below [facility] Medical History (Updated 06/09/23 @ 23:05 by Lamont Hernandez MD) Surgical History (Updated 05/04/23 @ 08:39 by Leonarda Ruiz) (1987) (03/2022) (2014) (2020) Family History (Updated 05/18/23 @ 02:39 by Olivia Salazar) Other Family history of Alzheimer's disease Family history of coronary artery disease Family history of heart disease Family history of hypertension Social History (Updated 05/18/23 @ 02:40 by Olivia Salazar) Within the past year, how often did you have a drink containing alcohol: never Score interpretation: A score less than 3 is consistent with normal alcohol consumption. Smoking status: Never smoker Non-prescribed substance use: denies use Previous occupational history: unemployed Highest level of school completed/degree received: some college, no degree Little interest or pleasure in doing things: not at all Feeling down, depressed, or hopeless: not at all Feel stressed/tense/nervous/anxious/difficulty sleeping: only a little Due to disability, difficulty making decisions: No Do you think of yourself as: straight/heterosexual Gender Identity: female Exam Constitutional Vital Signs, click to edit/add: Last Vital Signs Temp 98.6 F 06/09/23 21:09 Pulse 68 06/09/23 21:09 Resp 16 06/09/23 21:09 BP 137/80 06/09/23 21:09 Pulse Ox 97 06/09/23 21:09 O2 Del Method Room Air 06/09/23 21:09 Common normals: no apparent distress, average body habitus, oriented x3, no limitations, healthy appearing and alert Eye Common normals: EOMs intact bilaterally and conjunctivae normal Respiratory Common normals: normal respiratory effort, no retractions, no use of accessory muscles and clear to auscultation bilaterally Cardio Common normals: regular rate, regular rhythm, S1 normal heart sound and S2 normal heart sound GI Common normals: Normal to inspection, nondistended, normoactive bowel sounds present and non-tender Extremity Other: right foot with 2 incisions. one along the lateral aspect of the 5th metatarsal and a second one across the dorsum of the foot. Has mild diffuse swelling of the foot. The lateral incision is dry and appears healed. The dorsal incision has few areas of erythema at the incision that is mild. no warmth. No drainage from the incision. Edges of the incision are juxtaposed but wound still healing and can be easily pulled apart but return to base. mild -mod tenderness. No red streaks. Neuro Common normals: oriented x3, CN's II-XII intact bilaterally, moves all extremities, no focal motor deficits and no sensory deficits noted Psych Appearance: grossly normal Course Vital Signs Vital signs: Vital Signs Temperature 98.6 F 06/09/23 21:09 Pulse Rate 68 06/09/23 21:09 Respiratory Rate 16 06/09/23 21:09 Blood Pressure 137/80 06/09/23 21:09 Pulse Oximetry 97 06/09/23 21:09 Oxygen Delivery Method Room Air 06/09/23 21:09 Temperature 98.6 F 06/09/23 21:09 Pulse Rate 68 06/09/23 21:09 Respiratory Rate 16 06/09/23 21:09 Blood Pressure 137/80 06/09/23 21:09 Pulse Oximetry 97 06/09/23 21:09 Oxygen Delivery Method Room Air 06/09/23 21:09 MDM - Extremity (Nontraumatic) MDM Narrative Medical decision making narrative: patient s/p surgery right foot 05/12/23. seen in the office 3-4 days ago and stitches removed. Patient complains of increasing pain and is concerned about infection. No definite infection on exam of the foot. No drainage from the incision. foot is not warm. CRP, SED rate and WBC normal. Patient reassured that at this point I don't see any evidence of infection. Advised to follow up with her surgeon next week for recheck Lab Data Labs: Lab Results 06/09/23 Range/Units 21:39 WBC 4.9 (4.0-11.0) 10^3/uL RBC 3.96 L (4.20-5.40) 10^6/uL Hgb 10.9 L (12.0-16.0) g/dL Hct 32.6 L (36.0-48.0) % MCV 82.3 (81.0-99.0) fL MCH 27.5 (26.7-34.0) pg MCHC 33.4 (29.9-35.2) g/dL RDW 12.8 (11.0-15.0) % Plt Count 299 (150-450) 10^3/uL MPV 9.1 L (9.5-13.5) fL Neut % (Auto) 49.8 (43.0-75.0) % Lymph % (Auto) 38.4 (20.5-60.0) % [place] % (Auto) 6.3 (1.7-12.0) % Eos % (Auto) 4.3 (0.9-7.0) % Baso % (Auto) 1.0 (0.2-2.0) % Neut # (Auto) 2.5 (1.4-6.5) 10^3/uL Lymph # (Auto) 1.9 (1.2-3.8) 10^3/uL [place] # (Auto) 0.3 (0.3-0.8) 10^3/uL Eos # (Auto) 0.2 (0.0-0.7) 10^3/uL Baso # (Auto) 0.1 (0.0-0.1) 10^3/uL Abs Immat Gran (auto) 0.01 (0.00-0.03) 10^3/uL Imm/Tot Granulo (auto) 0.2 (0.0-0.5) % ESR 1 (<=30) mm/hr Sodium 141 (136-145) mmol/L Potassium 3.8 (3.5-5.1) mmol/L Chloride 107 (98-107) mmol/L Carbon Dioxide 26.6 (21.0-32.0) mmol/L Anion Gap 11.2 BUN 11.0 (7.0-18.0) mg/dL Creatinine 0.82 (0.55-1.02) mg/dL Est GFR ( Amer) >60 (>=60) Est GFR (Non-Af Amer) >60 (>=60) BUN/Creatinine Ratio 13.4 Glucose 103 (74-106) mg/dL Calcium 8.6 (8.5-10.1) mg/dL C-Reactive Protein <0.2 (<=1.0) mg/dL Discharge Plan Discharge Chief Complaint: Extremity Problem, Nontraumatic Clinical Impression: Pain in right foot Prescriptions / Home Meds: No Action albuterol sulfate [Ventolin HFA] 90 mcg/actuation HFA aerosol inhaler 2 puff INHALATION Q4H PRN (Reason: shortness of breath or wheezing) atenolol 25 mg tablet 25 mg PO Q24H baclofen 10 mg tablet 20 mg PO Q12H PRN (Reason: muscle spasm) atorvastatin 20 mg tablet 20 mg PO QAM dexlansoprazole 60 mg capsule,biphase delayed releas 60 mg PO QAM ropinirole 1 mg tablet 1 mg PO QAM ropinirole 2 mg tablet 2 mg PO QPM trazodone 50 mg tablet 200 mg PO QPM Ajovy Autoinjector 225 mg/1.5 mL auto-injector 125 mg subcut .[id number] Patient Comments: on the 1st of every month eszopiclone [Lunesta] 3 mg tablet 3 mg PO QPM dexpanthenol-choline bitart 50-25 mg tablet 1 tab PO QAM Rx Instructions: PER PT RETAIL FILL HX - 04/13/23 (30 DAY SUPPLY) DEXPANTHENOL (BULK) 100% LIQUID - NO DIRECTIONS AVAILABLE ON RETAIL HX alendronate [Fosamax] 70 mg tablet 70 mg PO QWEEK 84 Days Qty: 12 0RF enoxaparin [Lovenox] 40 mg/0.4 mL syringe 40 mg subcut QDAY MDD 40mg 30 Days Qty: 12 0RF cholecalciferol (vitamin D3) [Vitamin D3] 50 mcg (2,000 unit) capsule 50 mcg PO QDAY 90 Days Qty: 90 0RF lorazepam 0.5 mg tablet 1 mg PO QAM amoxicillin-pot clavulanate 875-125 mg tablet 1 tab PO Q12H Qty: 20 0RF Instructions: Arthralgia (ED) Additional Instructions: follow up with your surgeon next week. keep foot elevated. Return if fever Stand Alone Forms: Portal Instructions Referrals: Isatu CASTRO [Primary Care Provider] - 1 week
--- NOTE | 2023-06-09 21:29 | XR_ITS ---
The [address] [address] Patient Name: ELSIE FUENTES MRN: [id number] date: 1970 Sex: F Assigned Patient Location: ER Current Patient Location: ER Accession/Order Number: [id number] Exam Date: 06/09/2023 21:40 Report Date: 06/09/2023 22:29 At the request of: JENNIFER GARCIA Procedure: XR foot RT min 3V EXAM: XR foot RT min 3V HISTORY: post op pain ? osteo COMPARISON: Right foot x-ray dated 06/06/2023 TECHNIQUE: 3 views of the right foot FINDINGS: Stable postsurgical changes are again seen with intact hardware. No significant periprosthetic lucency is seen. No acute fracture is seen. Joint alignment is normal. Joint spaces are preserved. Soft tissue swelling is seen. No definite periostitis or osseous erosive changes are seen to suggest radiographic evidence for osteomyelitis. However, please note MRI is more sensitive for detection of osteomyelitis. No obvious soft tissue gas is seen. XR/XR foot RT min 3V IMPRESSION: Soft tissue swelling is seen. No definite radiographic evidence for osteomyelitis. However, please note MRI is more sensitive for detection of osteomyelitis. No obvious soft tissue gas is seen. Stable postsurgical changes. Electronically authenticated by: SHORTY HOLMAN Date: 06/09/2023 22:29
--- NOTE | 2023-06-09 21:39 | PC.NURSE ---
pt presents to ED because pt states she had surgery on may 12 to her right foot by dr. casiano. pt has incision sites on top of her foot, inner aspect of foot, and back of ankle. pt states she had sutures removed last monday and thought they didn't look good but the doctor who removed the stitches didn't say anything about it. pt states that ever since the area has been red, swollen, draining yellow pus, and has foul smell. pt is suppose to see her docotr in a week.
[2023-06-09 21:46] LABS: Basophils Absolute Auto 0.1 10^3/uL (0.0-0.1); Eosinophils Absolute Auto 0.2 10^3/uL (0.0-0.7); Eosinophils Percent Auto 4.3 % (0.9-7.0); Hematocrit 32.6 % (36.0-48.0); Hemoglobin 10.9 g/dL (12.0-16.0); Immature Granulocytes Abs Auto 0.01 10^3/uL (0.00-0.03); Immature Granulocytes Pct Auto 0.2 % (0.0-0.5); Lymphocytes Absolute Auto 1.9 10^3/uL (1.2-3.8); Lymphocytes Percent Auto 38.4 % (20.5-60.0); Mean Corpuscular HGB Conc 33.4 g/dL (29.9-35.2); Mean Corpuscular Hemoglobin 27.5 pg (26.7-34.0); Mean Corpuscular Volume 82.3 fL (81.0-99.0); Mean Platelet Volume 9.1 fL (9.5-13.5); Monocytes Absolute Auto 0.3 10^3/uL (0.3-0.8); Monocytes Percent Auto 6.3 % (1.7-12.0); Neutrophils Absolute Auto 2.5 10^3/uL (1.4-6.5); Neutrophils Percent Auto 49.8 % (43.0-75.0); Platelet Count 299 10^3/uL (150-450); Red Blood Count 3.96 10^6/uL (4.20-5.40); Red Cell Distribution Width 12.8 % (11.0-15.0); White Blood Count 4.9 10^3/uL (4.0-11.0)
[2023-06-09 21:59] LABS: Anion Gap 11.2; BUN Creatinine Ratio 13.4; Calcium 8.6 mg/dL (8.5-10.1); Carbon Dioxide 26.6 mmol/L (21.0-32.0); Chloride 107 mmol/L (98-107); Estimated GFR (African America >60 (>=60); Estimated GFR (Non-African Ame >60 (>=60); Glucose 103 mg/dL (74-106); Potassium 3.8 mmol/L (3.5-5.1); Sodium 141 mmol/L (136-145)
[2023-06-09 22:01] LABS: C Reactive Protein <0.2 mg/dL (<=1.0)
[2023-06-09 22:34] LABS: Erythrocyte Sedimentation Rate 1 mm/hr (<=30)
--- NOTE | 2023-06-09 23:10 | ED.EXTPRO1 ---
HPI - Extremity Problem General Chief complaint: Extremity Problem, Nontraumatic Stated complaint: right foot pain Time Seen by Provider: 06/09/23 21:06 Source: patient Mode of arrival: walk-in Limitations: no limitations History of Present Illness HPI Narrative: surgery right foot 05/2023. Seen last week in office and stitches removed. she has 2 incisions. one on the lateral aspect of the foot has healed. The one on the dorsum has not. She noticed some drainage at home. no fever but she feels the foot is warm and more painful and worried she may have an infection Related Data Home Medications Medication Instructions Recorded Confirmed albuterol sulfate 90 mcg/actuation 2 puff inhalation Q4H PRN 05/04/23 05/18/23 aerosol inhaler (Ventolin HFA) shortness of breath or wheezing atenolol 25 mg tablet 25 mg PO Q24H 05/04/23 05/18/23 atorvastatin 20 mg tablet 20 mg PO QAM 05/04/23 05/18/23 baclofen 10 mg tablet 20 mg PO Q12H PRN muscle spasm 05/04/23 05/18/23 dexlansoprazole 60 mg 60 mg PO QAM 05/04/23 05/18/23 capsule,biphase delayed release dexpanthenol-choline bitart 50 1 tab PO QAM 05/04/23 05/18/23 mg-25 mg tablet eszopiclone 3 mg tablet (Lunesta) 3 mg PO QPM 05/04/23 05/18/23 fremanezumab-vfrm 225 mg/1.5 mL 125 mg subcut .[id number] 05/04/23 05/18/23 subcutaneous auto-injector (Ajovy) ropinirole 1 mg tablet 1 mg PO QAM 05/04/23 05/18/23 ropinirole 2 mg tablet 2 mg PO QPM 05/04/23 05/18/23 trazodone 50 mg tablet 200 mg PO QPM 05/04/23 05/18/23 lorazepam 0.5 mg tablet 1 mg PO QAM 05/18/23 05/18/23 Previous Rx's Medication Instructions Recorded alendronate 70 mg tablet (Fosamax) 70 mg PO QWEEK fusion 12 weeks #12 05/12/23 tabs cholecalciferol (vitamin D3) 50 50 mcg PO QDAY 3 months #90 caps 05/12/23 mcg (2,000 unit) capsule (Vitamin D3) enoxaparin 40 mg/0.4 mL 40 mg (0.4 mL) subcut QDAY 05/12/23 subcutaneous syringe (Lovenox) prohylaxis 30 days #12 mL amoxicillin 875 mg-potassium 1 tab PO Q12H #20 tabs 05/19/23 clavulanate 125 mg tablet Allergies Allergy/AdvReac Type Severity Reaction Status Date / Time risperidone [From Risperdal] AdvReac Mild breast Verified 05/18/23 00:13 nipples leak Review of Systems ROS Status of ROS 10 or more systems reviewed and unremarkable except as noted in history and below [facility] Medical History (Updated 06/09/23 @ 23:05 by Lamont Hernandez MD) Surgical History (Updated 05/04/23 @ 08:39 by Leonarda Ruiz) (1987) (03/2022) (2014) (2020) Family History (Updated 05/18/23 @ 02:39 by Olivia Salazar) Other Family history of Alzheimer's disease Family history of coronary artery disease Family history of heart disease Family history of hypertension Social History (Updated 05/18/23 @ 02:40 by Olivia Salazar) Within the past year, how often did you have a drink containing alcohol: never Score interpretation: A score less than 3 is consistent with normal alcohol consumption. Smoking status: Never smoker Non-prescribed substance use: denies use Previous occupational history: unemployed Highest level of school completed/degree received: some college, no degree Little interest or pleasure in doing things: not at all Feeling down, depressed, or hopeless: not at all Feel stressed/tense/nervous/anxious/difficulty sleeping: only a little Due to disability, difficulty making decisions: No Do you think of yourself as: straight/heterosexual Gender Identity: female Exam Constitutional Vital Signs, click to edit/add: Last Vital Signs Temp 98.6 F 06/09/23 21:09 Pulse 68 06/09/23 21:09 Resp 16 06/09/23 21:09 BP 137/80 06/09/23 21:09 Pulse Ox 97 06/09/23 21:09 O2 Del Method Room Air 06/09/23 21:09 Common normals: no apparent distress, average body habitus, oriented x3 and healthy appearing Eye Common normals: EOMs intact bilaterally and conjunctivae normal Respiratory Common normals: normal respiratory effort, no retractions, no use of accessory muscles and clear to auscultation bilaterally Cardio Common normals: regular rate, regular rhythm, S1 normal heart sound and S2 normal heart sound GI Common normals: Normal to inspection, nondistended, normoactive bowel sounds present and non-tender Extremity Other: incision along right lat 5th metatarsal look good and is closed. The dorsal incision is juxtaposed. no drainage. couple of small 10 cent size areas of erythema. No obvious warmth. mild tenderness. Neuro Common normals: oriented x3, CN's II-XII intact bilaterally, moves all extremities and no focal motor deficits Psych Appearance: grossly normal Course Vital Signs Vital signs: Vital Signs Temperature 98.6 F 06/09/23 21:09 Pulse Rate 68 06/09/23 21:09 Respiratory Rate 16 06/09/23 21:09 Blood Pressure 137/80 06/09/23 21:09 Pulse Oximetry 97 06/09/23 21:09 Oxygen Delivery Method Room Air 06/09/23 21:09 Temperature 98.6 F 06/09/23 21:09 Pulse Rate 68 06/09/23 21:09 Respiratory Rate 16 06/09/23 21:09 Blood Pressure 137/80 06/09/23 21:09 Pulse Oximetry 97 06/09/23 21:09 Oxygen Delivery Method Room Air 06/09/23 21:09 MDM - Extremity (Nontraumatic) MDM Narrative Medical decision making narrative: presents concern about possible post op infection of her foot. inflammatory markers are normal. xray without concerning findings. WBC normal and she is afebrile. Exam on inspection not concerning for any obvious infection patient advised to follow up with her doctor Lab Data Labs: Lab Results 06/09/23 Range/Units 21:39 WBC 4.9 (4.0-11.0) 10^3/uL RBC 3.96 L (4.20-5.40) 10^6/uL Hgb 10.9 L (12.0-16.0) g/dL Hct 32.6 L (36.0-48.0) % MCV 82.3 (81.0-99.0) fL MCH 27.5 (26.7-34.0) pg MCHC 33.4 (29.9-35.2) g/dL RDW 12.8 (11.0-15.0) % Plt Count 299 (150-450) 10^3/uL MPV 9.1 L (9.5-13.5) fL Neut % (Auto) 49.8 (43.0-75.0) % Lymph % (Auto) 38.4 (20.5-60.0) % Wise % (Auto) 6.3 (1.7-12.0) % Eos % (Auto) 4.3 (0.9-7.0) % Baso % (Auto) 1.0 (0.2-2.0) % Neut # (Auto) 2.5 (1.4-6.5) 10^3/uL Lymph # (Auto) 1.9 (1.2-3.8) 10^3/uL Wise # (Auto) 0.3 (0.3-0.8) 10^3/uL Eos # (Auto) 0.2 (0.0-0.7) 10^3/uL Baso # (Auto) 0.1 (0.0-0.1) 10^3/uL Abs Immat Gran (auto) 0.01 (0.00-0.03) 10^3/uL Imm/Tot Granulo (auto) 0.2 (0.0-0.5) % ESR 1 (<=30) mm/hr Sodium 141 (136-145) mmol/L Potassium 3.8 (3.5-5.1) mmol/L Chloride 107 (98-107) mmol/L Carbon Dioxide 26.6 (21.0-32.0) mmol/L Anion Gap 11.2 BUN 11.0 (7.0-18.0) mg/dL Creatinine 0.82 (0.55-1.02) mg/dL Est GFR ( Amer) >60 (>=60) Est GFR (Non-Af Amer) >60 (>=60) BUN/Creatinine Ratio 13.4 Glucose 103 (74-106) mg/dL Calcium 8.6 (8.5-10.1) mg/dL C-Reactive Protein <0.2 (<=1.0) mg/dL Discharge Plan Discharge Chief Complaint: Extremity Problem, Nontraumatic Clinical Impression: Pain in right foot Patient Disposition: Home, Self-Care Prescriptions / Home Meds: No Action albuterol sulfate [Ventolin HFA] 90 mcg/actuation HFA aerosol inhaler 2 puff INHALATION Q4H PRN (Reason: shortness of breath or wheezing) atenolol 25 mg tablet 25 mg PO Q24H baclofen 10 mg tablet 20 mg PO Q12H PRN (Reason: muscle spasm) atorvastatin 20 mg tablet 20 mg PO QAM dexlansoprazole 60 mg capsule,biphase delayed releas 60 mg PO QAM ropinirole 1 mg tablet 1 mg PO QAM ropinirole 2 mg tablet 2 mg PO QPM trazodone 50 mg tablet 200 mg PO QPM Ajovy Autoinjector 225 mg/1.5 mL auto-injector 125 mg subcut .[id number] Patient Comments: on the 1st of every month eszopiclone [Lunesta] 3 mg tablet 3 mg PO QPM dexpanthenol-choline bitart 50-25 mg tablet 1 tab PO QAM Rx Instructions: PER PT RETAIL FILL HX - 04/13/23 (30 DAY SUPPLY) DEXPANTHENOL (BULK) 100% LIQUID - NO DIRECTIONS AVAILABLE ON RETAIL HX alendronate [Fosamax] 70 mg tablet 70 mg PO QWEEK 84 Days Qty: 12 0RF enoxaparin [Lovenox] 40 mg/0.4 mL syringe 40 mg subcut QDAY MDD 40mg 30 Days Qty: 12 0RF cholecalciferol (vitamin D3) [Vitamin D3] 50 mcg (2,000 unit) capsule 50 mcg PO QDAY 90 Days Qty: 90 0RF lorazepam 0.5 mg tablet 1 mg PO QAM amoxicillin-pot clavulanate 875-125 mg tablet 1 tab PO Q12H Qty: 20 0RF Instructions: Arthralgia (ED) Additional Instructions: follow up with your surgeon next week. keep foot elevated. Return if fever Stand Alone Forms: Portal Instructions Referrals: Isatu CASTRO [Primary Care Provider] - 1 week Discharge Date/Time: 06/09/23 23:27
== END 2023-06-09 23:27 | disposition home or self-care (01) ==
PROVIDERS: Emergency Provider Internal Medicine; PCP Family Medicine
DX: M79.671 Pain in right foot (principal); Z79.899 Other long term (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; Z98.890 Other specified postprocedural states
CPT/HCPCS: 36415; 73630; 80048; 85025; 85652; 86140; 99284

== ENCOUNTER 2023-06-28 10:54 | Outpatient (OUT) | payer OTHER, SELFPAY ==
--- NOTE | 2023-06-28 | XR_ITS ---
The [address] [address] Patient Name: ELSIE FUENTES MRN: [id number] date: 1970 Sex: F Assigned Patient Location: [facility] Current Patient Location: [facility] Accession/Order Number: [id number] Exam Date: 06/28/2023 11:05 Report Date: 06/28/2023 12:08 At the request of: SADE WILDE Procedure: XR foot RT min 3V PROCEDURE: XR foot RT min 3V DATE: 06/28/2023 10:05 AM CDT COMPARISONS: 06/09/2023 CLINICAL INDICATION: RIGHT FOOT PAIN FINDINGS: There is no evidence of fractures or other osseous abnormalities. Extensive postsurgical changes are again identified. Postsurgical changes are all stable from previous exam. The hardware appears intact. Osseous structures remain in good alignment.. No evidence of erosive osseous lesions or destructive osseous processes. XR/XR foot RT min 3V IMPRESSION: Extensive postop changes, stable in appearance. No acute osseous abnormalities.. Electronically authenticated by: DEISY GRAJEDA Date: 06/28/2023 12:08
== END 2023-06-28 10:55 | disposition home or self-care (01) ==
LOC: RAD 10:54
PROVIDERS: PCP Family Medicine; Visit Provider Podiatrist Foot & Ankle Surgery
DX: M79.671 Pain in right foot (principal)
CPT/HCPCS: 73630

== ENCOUNTER 2023-07-12 11:06 | Outpatient (OUT) | payer OTHER, SELFPAY ==
--- NOTE | 2023-07-12 | XR_ITS ---
The [address] [address] Patient Name: ELSIE FUENTES MRN: [id number] date: 1970 Sex: F Assigned Patient Location: [facility] Current Patient Location: [facility] Accession/Order Number: [id number] Exam Date: 07/12/2023 11:15 Report Date: 07/12/2023 13:56 At the request of: SADE WILDE Procedure: XR foot RT min 3V PROCEDURE: XR foot RT min 3V DATE: 07/12/2023 10:15 AM CDT COMPARISONS: 06/28/2023 CLINICAL INDICATION: RIGHT FOOT PAIN FINDINGS: There is no evidence of fractures or other acute osseous abnormalities. Extensive postop changes are again identified of the foot all postop changes remain stable from previous exam. The hardware appears intact. Osseous structures remain in good alignment. No evidence of erosive osseous lesions or destructive osseous processes. There is mild first metatarsal phalangeal degenerative change and mild first interphalangeal degenerative change, stable. XR/XR foot RT min 3V IMPRESSION: Stable postop changes right foot. No evidence of acute osseous abnormalities. Electronically authenticated by: DEISY GRAJEDA Date: 07/12/2023 13:56
== END 2023-07-12 11:07 | disposition home or self-care (01) ==
LOC: RAD 11:06
PROVIDERS: PCP Family Medicine; Visit Provider Podiatrist Foot & Ankle Surgery
DX: M79.671 Pain in right foot (principal)
CPT/HCPCS: 73630

== ENCOUNTER 2023-07-24 14:43 | Outpatient (RCR) | payer OTHER, SELFPAY | END 2023-07-25 16:11 | disposition home or self-care (01) | LOC: PT 14:43 | PROVIDERS: PCP Family Medicine; Visit Provider Podiatrist Foot & Ankle Surgery | DX: Z98.890 Other specified postprocedural states (principal) | CPT/HCPCS: 97110; 97140; 97161 ==

== ENCOUNTER 2023-07-28 01:07 | Emergency (ER) | payer OTHER, SELFPAY ==
[2023-07-28 01:11] VITALS: BP 138/86; PULSE 87; RESP 18; TEMP 36.6; O2SAT 98; BMI 26.3
--- NOTE | 2023-07-28 01:45 | ED_ITS ---
HPI - Extremity Injury (Lower) General Chief Complaint: Extremity Injury, Lower Stated Complaint: R FOOT PAIN Time Seen by Provider: 07/28/23 01:45 Source: patient Mode of arrival: Wheelchair History of Present Illness HPI Narrative: This 53-year-old female who is status post right foot surgery ?3, due to being flat footed presents for evaluation of burning foot pain on the right. She had the surgery on the left foot and everything went well. She states that approximate 5 weeks after her right foot surgery she was wearing a boot and fell off of her scooter and landed directly onto the right foot while it was in a boot. She states that that messed up the hardware that was settling in and this surgery had to be repeated. She then had additional surgery in May. She states that since her surgery in May she has been having intermittent pain and swelling in the extremity. She does not wear any compression socks. She states that she went to get her hair done today and while at the [employer] her right foot started swelling up. She went home and applied ice and the swelling has since resolved. She states she is still having burning pain in the anterior aspect of the right foot. She has an incision that is still healing with a small open area in the center that is likely related to a retained suture. She has not had any fever. There is no redness. Her feet are warm and pulses are intact. She states that she tried to get a hold of Dr. Felix but cannot get in to see him until next week. Related Data Home Medications Medication Instructions Recorded Confirmed albuterol sulfate 90 mcg/actuation 2 puff inhalation Q4H PRN 05/04/23 05/18/23 aerosol inhaler (Ventolin HFA) shortness of breath or wheezing atenolol 25 mg tablet 25 mg PO Q24H 05/04/23 07/28/23 dexlansoprazole 60 mg 60 mg PO QAM 05/04/23 07/28/23 capsule,biphase delayed release dexpanthenol-choline bitart 50 1 tab PO QAM 05/04/23 05/18/23 mg-25 mg tablet eszopiclone 3 mg tablet (Lunesta) 3 mg PO QPM 05/04/23 07/28/23 fremanezumab-vfrm 225 mg/1.5 mL 125 mg subcut .[id number] 05/04/23 07/28/23 subcutaneous auto-injector (Ajovy) ropinirole 1 mg tablet 1 mg PO QAM 05/04/23 07/28/23 ropinirole 2 mg tablet 2 mg PO QPM 05/04/23 07/28/23 trazodone 50 mg tablet 200 mg PO QPM 05/04/23 07/28/23 lorazepam 0.5 mg tablet 1 mg PO QAM 05/18/23 07/28/23 Previous Rx's Medication Instructions Recorded cholecalciferol (vitamin D3) 50 50 mcg PO QDAY 3 months #90 caps 05/12/23 mcg (2,000 unit) capsule (Vitamin D3) Allergies Allergy/AdvReac Type Severity Reaction Status Date / Time risperidone [From Risperdal] AdvReac Mild breast Verified 05/18/23 00:13 nipples leak Review of Systems ROS Status of ROS 10 or more systems reviewed and unremarkable except as noted in history and below [facility] Medical History (Updated 07/28/23 @ 02:29 by Daisy Sosa MD) Surgical History (Updated 05/04/23 @ 08:39 by Leonarda Ruiz) (1987) (03/2022) (2014) (2020) Family History (Updated 05/18/23 @ 02:39 by Olivia Salazar) Other Family history of Alzheimer's disease Family history of coronary artery disease Family history of heart disease Family history of hypertension Social History (Updated 05/18/23 @ 02:40 by Olivia Salazar) Within the past year, how often did you have a drink containing alcohol: never Score interpretation: A score less than 3 is consistent with normal alcohol consumption. Smoking status: Never smoker Non-prescribed substance use: denies use Previous occupational history: unemployed Highest level of school completed/degree received: some college, no degree Little interest or pleasure in doing things: not at all Feeling down, depressed, or hopeless: not at all Feel stressed/tense/nervous/anxious/difficulty sleeping: only a little Due to disability, difficulty making decisions: No Do you think of yourself as: straight/heterosexual Gender Identity: female Exam Narrative Exam Narrative: Nurses note and vital signs reviewed and patient is not hypoxic. General: The patient appears well and in no apparent distress. Patient is resting comfortably on cart. Skin: Warm, dry, no pallor noted. There is no rash noted. Head: Normocephalic, atraumatic Eye: Normal conjunctiva, no drainage, EOMI. PERRL Cardiovascular: Regular Rate and Rhythm Respiratory: Patient is in no distress, no accessory muscle use, lungs are clear to auscultation, no wheezing, rales or rhonchid. Musculoskeletal: There are 3 surgeons on the patient's right foot. One on the lateral aspect of the right foot is healed, old one on the medial aspect of the right foot is healed, the one on the anterior aspect of the right foot is healing with a small less than 1 cm ovoid area that is minimally open, appears to be a retained suture, there is no local redness, no sign of cellulitis, feet are warm and sensate. Patient is able to move all of her toes. She is able to flex and extend the right foot but unable to adduct and abduct- this is not new and is consistent with the post op fusion Neurological: A&O x4, normal speech Psychiatric: Cooperative Constitutional Vital Signs, click to edit/add: Last Vital Signs Temp 97.8 F 07/28/23 01:11 Pulse 87 07/28/23 01:11 Resp 18 07/28/23 01:11 BP 138/86 07/28/23 01:11 Pulse Ox 98 07/28/23 01:11 O2 Del Method Room Air 07/28/23 01:11 Course Vital Signs Vital signs: Vital Signs Temperature 97.8 F 07/28/23 01:11 Pulse Rate 87 07/28/23 01:11 Respiratory Rate 18 07/28/23 01:11 Blood Pressure 138/86 07/28/23 01:11 Pulse Oximetry 98 07/28/23 01:11 Oxygen Delivery Method Room Air 07/28/23 01:11 Temperature 97.8 F 07/28/23 01:11 Pulse Rate 87 07/28/23 01:11 Respiratory Rate 18 07/28/23 01:11 Blood Pressure 138/86 07/28/23 01:11 Pulse Oximetry 98 07/28/23 01:11 Oxygen Delivery Method Room Air 07/28/23 01:11 MDM - Extremity Injury (Lower) MDM Narrative Medical decision making narrative: This 53-year-old female who is postop [address] Highlander due to being flat footed presents for evaluation of burning sensation and swelling of the right foot. She has a picture on her phone of moderate swelling from earlier today that was related to being at the parlor and hanging her feet over the edge of the chair. She states that she has swelling when she is ambulatory and burning pain in the anterior aspect of her foot. Her incisions are healing. She tried to reach Dr. Felix but cannot get into see him till next week. Xray of the right foot was ordered and the report is pending but I compared it to the prior xray and it looks similar. I offered the patient something for pain, and Manjinder wrap, postop shoe but she declined everything stating that she was going to suffer through it. She states that she has compression socks at home and will go home and put one on. I did review her [facility] report that shows multiple Rx for Tramadol but she denies that she wants anything for pain becuase she has GI issues. She declined any other interventions and left the ED ambulatory. Discharge Plan Discharge Chief Complaint: Extremity Injury, Lower Clinical Impression: Pain in right foot, Post-operative pain Patient Disposition: Home, Self-Care Time of Disposition Decision: 02:55 Condition: Good Prescriptions / Home Meds: No Action albuterol sulfate [Ventolin HFA] 90 mcg/actuation HFA aerosol inhaler 2 puff INHALATION Q4H PRN (Reason: shortness of breath or wheezing) atenolol 25 mg tablet 25 mg PO Q24H dexlansoprazole 60 mg capsule,biphase delayed releas 60 mg PO QAM ropinirole 1 mg tablet 1 mg PO QAM ropinirole 2 mg tablet 2 mg PO QPM trazodone 50 mg tablet 200 mg PO QPM Ajovy Autoinjector 225 mg/1.5 mL auto-injector 125 mg subcut .[id number] Patient Comments: on the 1st of every month eszopiclone [Lunesta] 3 mg tablet 3 mg PO QPM dexpanthenol-choline bitart 50-25 mg tablet 1 tab PO QAM Rx Instructions: PER PT RETAIL FILL HX - 04/13/23 (30 DAY SUPPLY) DEXPANTHENOL (BULK) 100% LIQUID - NO DIRECTIONS AVAILABLE ON RETAIL HX cholecalciferol (vitamin D3) [Vitamin D3] 50 mcg (2,000 unit) capsule 50 mcg PO QDAY 90 Days Qty: 90 0RF lorazepam 0.5 mg tablet 1 mg PO QAM Additional Instructions: Follow-up with Dr. Felix as soon as possible. Stand Alone Forms: Portal Instructions Referrals: Isatu CASTRO [Primary Care Provider] - 1 week
--- NOTE | 2023-07-28 01:54 | XR_ITS ---
The [address] [address] Patient Name: ELSIE FUENTES MRN: [id number] date: 1970 Sex: F Assigned Patient Location: ER Current Patient Location: Accession/Order Number: [id number] Exam Date: 07/28/2023 02:10 Report Date: 07/28/2023 04:01 At the request of: SOLITARIO MARKER Procedure: XR foot RT min 3V EXAM: XR foot RT min 3V HISTORY: post op pain COMPARISON: Right foot x-rays, 07/12/2023. TECHNIQUE: AP, oblique and lateral views of the right foot. FINDINGS: Extensive postoperative changes involving the mid and hindfoot as well as the distal first metatarsal remain unchanged from the prior exam. No hardware loosening or failure is seen. No acute osseous, articular or soft tissue abnormality is identified. Mild degenerative changes are present. There is developmental fusion of the middle and distal phalanges of the fifth toe, a normal variant. XR/XR foot RT min 3V IMPRESSION: No acute right foot findings or interval change from prior exam. Extensive postoperative changes remain unchanged. Electronically authenticated by: DIPTI OTERO Date: 07/28/2023 04:01
== END 2023-07-28 02:55 | disposition home or self-care (01) ==
PROVIDERS: Emergency Provider Emergency Medicine; PCP Family Medicine
DX: M79.671 Pain in right foot (principal); G89.18 Other acute postprocedural pain; Z79.899 Other long term (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
CPT/HCPCS: 73630; 99283

== ENCOUNTER 2023-08-03 14:45 | Outpatient (OUT) | payer OTHER, SELFPAY ==
--- NOTE | 2023-08-03 | XR_ITS ---
The [place] [id number] Patient Name: ELSIE FUENTES MRN: [id number] date: 1970 Sex: F Assigned Patient Location: [facility] Current Patient Location: [facility] Accession/Order Number: [id number] Exam Date: 08/03/2023 13:35 Report Date: 08/03/2023 14:38 At the request of: SADE WILDE Procedure: XR foot RT min 3V STUDY: XR foot RT min 3V, [id number] HISTORY: RIGHT FOOT PAIN COMPARISON: Right foot x-rays 07/28/2023. FINDINGS: No acute fracture, dislocation, or suspicious osseous lesion. Right foot hardware is intact and similar alignment compared with 07/28/2023. No new or worsening osseous abnormality. Mild osteoarthritis at the first metatarsophalangeal joint as well as at the first and fourth tarsometatarsal joint. Small soft tissue calcification near the navicular which may represent a small accessory navicular. Small soft tissue calcification along the dorsal aspect of the navicular, similar. Small plantar calcaneal spur and mild Achilles insertional enthesopathy. XR/XR foot RT min 3V IMPRESSION: Compared with 07/28/2023, no new or worsening osseous abnormality demonstrated. Electronically authenticated by: MELL ESCOBAR Date: 08/03/2023 14:38
== END 2023-08-03 14:46 | disposition home or self-care (01) ==
LOC: RAD 14:46
PROVIDERS: PCP Family Medicine; Visit Provider Physician Assistant
DX: M19.071 Primary osteoarthritis, right ankle and foot (principal); R93.6 Abnormal findings on diagnostic imaging of limbs
CPT/HCPCS: 73630

== ENCOUNTER 2023-08-04 12:35 | Outpatient (OUT) | payer OTHER, SELFPAY ==
--- NOTE | 2023-08-04 | CT_ITS ---
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 Multiplanar reformats were generated at the scanner. Dose reduction technique used: Automated exposure control and/or adjustment of the mA and/or kV according to patient size and/or use of iterative reconstruction technique. COMPARISON: Right ankle CT 04/14/2023 and right foot x-rays 08/03/2023. FINDINGS: Interval removal of the 2 calcaneal osteotomy fixation screws with subsequent calcaneotalar and talonavicular arthrodesis. The arthrodesis hardware is intact. The tip of the most cranial of the two talocalcaneal arthrodesis screws extends beyond the cortex of the talus by approximately 6 mm into the soft tissues of the sinus tarsi (for example series 7 image 66 and series 3 image 97). The head of the most lateral talonavicular arthrodesis screw sits proud of the cortex of the navicular by approximately 2.5 mm into the superomedial aspect of the articulation between the navicular and medial cuneiform. No significant bony bridging across the talocalcaneal articulation. There is partial bony bridging across the talonavicular joint. Complete bony bridging across the lateral aspect of the calcaneocuboid arthrodesis of the medial aspect of the joint remains patent. Curvilinear calcification within the soft tissues of the anteromedial ankle measuring approximately 10 mm in length (series 7 image 36 and series 3 image 91), new compared with 04/14/2023. 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 No subcortical cystic change in the talar dome. No other significant osteoarthritis of the unfused joints. Chronic inflammatory changes and mild edema surrounding the ankle. No large fluid collection. CT/CT ankle RT wo con IMPRESSION: 1. The most cranial of the 2 talocalcaneal arthrodesis screws extends beyond the cortex of the talus into the sinus tarsi by approximately 6 mm. 2. The head of the most lateral talonavicular arthrodesis screw sits proud of the cortex of the navicular by approximately 2.5 cm and is directly adjacent to the superomedial aspect of the articulation between the navicular and medial cuneiform. 3. Compared with 04/14/2023, there are 2 new small bony fragments within the soft tissues surrounding the ankle. Electronically authenticated by: MELL ESCOBAR Date: 08/05/2023 20:01
== END 2023-08-04 12:36 | disposition home or self-care (01) ==
LOC: CT 12:35
PROVIDERS: PCP Family Medicine; Visit Provider Physician Assistant
DX: M96.0 Pseudarthrosis after fusion or arthrodesis (principal); M19.071 Primary osteoarthritis, right ankle and foot; Z98.1 Arthrodesis status
CPT/HCPCS: 73700

== ENCOUNTER 2023-09-13 08:46 | Outpatient (OUT) | payer OTHER, SELFPAY ==
--- NOTE | 2023-09-13 | XR_ITS ---
The [address] [address] Patient Name: ELSIE FUENTES MRN: [id number] date: 1970 Sex: F Assigned Patient Location: [facility] Current Patient Location: [facility] Accession/Order Number: [id number] Exam Date: 09/13/2023 08:48 Report Date: 09/13/2023 14:47 At the request of: SADE WILDE Procedure: XR foot RT min 3V PROCEDURE: XR foot RT min 3V HISTORY: RIGHT FOOT PAIN COMPARISON: None. FINDINGS: BONES:Stable surgical changes without evidence of hardware loosening or fracture. Stable wedge placement and osteotomies. No bone fracture or dislocation. SOFT TISSUES:Mild dorsal soft tissue swelling. EFFUSION:None visible. OTHER: Negative. XR/XR foot RT min 3V IMPRESSION: 1. Stable surgical changes without evidence of hardware failure or change in alignment. 2. Soft tissue swelling; not significant changed. Electronically authenticated by: ZAIDA ACOSTA Date: 09/13/2023 14:47
== END 2023-09-13 08:47 | disposition home or self-care (01) ==
LOC: RAD 08:46
PROVIDERS: PCP Family Medicine; Visit Provider Podiatrist Foot & Ankle Surgery
DX: M25.571 Pain in right ankle and joints of right foot (principal); R60.0 Localized edema
CPT/HCPCS: 73630

== ENCOUNTER 2023-09-21 07:01 | Outpatient (RCR) | payer OTHER, SELFPAY | END 2023-11-05 09:00 | disposition home or self-care (01) | LOC: PT 07:01 | PROVIDERS: PCP Family Medicine; Visit Provider Podiatrist Foot & Ankle Surgery | DX: M76.821 Posterior tibial tendinitis, right leg (principal); Z98.890 Other specified postprocedural states | CPT/HCPCS: 97035; 97110; 97161 ==

== ENCOUNTER 2023-10-25 09:01 | Outpatient (OUT) | payer OTHER, SELFPAY ==
--- NOTE | 2023-10-25 | XR_ITS ---
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 Extensive hindfoot and midfoot postop changes are again identified the surgical hardware is all in stable position and intact Pin is noted of the distal first metatarsal, stable. XR/XR foot RT min 3V IMPRESSION: Stable surgical changes of the right foot when compared to 09/13/2023. No evidence of hardware failure. No evidence of acute osseous abnormalities. Electronically authenticated by: DEISY GRAJEDA Date: 10/25/2023 13:29
--- OUTSIDE RECORDS SUMMARY | 2023-10-25 09:26 | XMS_ITS | CCD ---
Author Name Unknown Address [address] [place] [address] Organization [facility] Care Team Providers Care Group Exercise Class Instructor Name Role Phone PARISH WILLAMS Primary Care Unavailable Eliceo Willams Jr. Primary Care Provider Gwendolyn Stroud Unavailable Maximus OROSCO, Gwendolyn Unavailable [phone] Annette Harris Unavailable Tita Daugherty Unavailable Erica Kingston Unavailable Eliceo Willams Unavailable Unavailable Unavailable Allison Arita Unavailable Eliceo Willams Jr. Primary Care Provider Maximus OROSCO, Gwendolyn Unavailable Eliceo Willams Unavailable DO Shannon Willams Primary Care Provider [phone] MD Annette Harris Attending Provider Eliceo Willams Jr. Primary Care Provider Maximus OROSCO, Gwendolyn Unavailable [phone] Annette Cartagena Unavailable MD Annette Cartagena Attending Provider WINSTNO HANNAH Attending Unavailable WINSTON HANNAH Referring Unavailable ELICEO WILLAMS JR Primary Care Unavail able ISRA MASTERS Attending Unavailable ISRA MASTERS Referring Unavailable ELICEO WILLAMS JR Primary Care Unavail able DO Shannon Willams Primary Care Provider LORRAINE Duron Attending Provider JEM Bojorquez, DR BAEZA Consulting Unavailable KAFTAN, DR Isatu LUGO Primary Care Unavailable HAY ., DR BAEZA Admitting Unavailable HAY ., DR BAEZA Attending Unavailable SALMA AMEZQUITA Consulting Unavailable HIGHLANDER, SADE Kenny Consulting Unavailable HIGHLANDER, SADE Kenny Attending Unavailable HIGHLANDER, SADE Kenny Admitting Unavailable KAFTAN, DR Isatu LUGO Primary Care Unavailable HOLLINGSWORTHSHERLYN SAMAYOA Consulting Unavailable HIGHLANDER, SADE Kenny Attending Unavailable HIGHLANDER, SADE Kenny Admitting Unavailable WEST, DR NICKI Gale Consulting Unavailable KAFTAN, DR Isatu LUGO Primary Care Unavailable HIGHLANDER, SADE Kenny Consulting Unavailable KAFTAN, DR Isatu LUGO Primary Care Unavailable TANI ., CHASITY Consulting Unavailable TANI ., CHASITY Attending Unavailable TANI ., CHASITY Admitting Unavailable NANCY BELLE Consulting Unavailable KAFTAN, DR Isatu LUGO Primary Care Unavailable PAY ., DR MCDONALD Consulting Unavailable PAY ., DR MCDONALD Attending Unavailable PAY ., DR MCDONALD Admitting Unavailable KAFTAN, DR Isatu LUGO Primary Care Unavailable HIGHLANDER, SADE Kenny Attending Unavailable HIGHLANDER, SADE Kenny Admitting Unavailable ZIEBER, DR ZAIDA Ellis Consulting Unavailable HIGHLANDER, SADE Kenny Consulting Unavailable KAFTAN, DR Isatu LUGO Primary Care Unavailable HAY ., DR BAEZA Consulting Unavailable HAY ., DR BAEZA Attending Unavailable HAY ., DR BAEZA Admitting Unavailable HIGHLANDER, SADE Kenny Attending Unavailable HIGHLANDER, SADE Kenny Admitting Unavailable KAFTAN, DR Isatu LUGO Primary Care Unavailable ZIEBER, DR ZAIDA Ellis Consulting Unavailable HIGHLANDER, SADE Kenny Consulting Unavailable KAREEM, NIECY Attending Unavailable KAREEM, NIECY Admitting Unavailable KAFTAN, DR Isaut LUGO Primary Care Unavailable ZIEBER, DR ZAIDA Ellis Consulting Unavailable KAREEM, NIECY Consulting Unavailable KAREEM, NIECY Admitting Unavailable KAREEM, NIECY Attending Unavailable KAFTAN, DR Isatu LUGO Primary Care Unavailable ZIEBER, DR ZAIDA Ellis Consulting Unavailable KAREEM, NIECY Consulting Unavailable KAREEM, NIECY Admitting Unavailable KAREEM, NIECY Attending Unavailable WEST, DR NICKI Gale Consulting Unavailable KAFTAN, DR Isatu LUGO Primary Care Unavailable KAREEM, NIECY Consulting Unavailable JOSE, JENNIFER Attending Unavailable HAY ., DR BAEZA Consulting Unavailable JOSE, JENNIFER Admitting Unavailable KAFTAN, DR Isatu LUGO Primary Care Unavailable JOSE, JENNIFER Consulting Unavailable HIGHLANDER, SADE Kenny Consulting Unavailable TANI ., CHASITY Attending Unavailable KAFTAN, DR Isatu LUGO Primary Care Unavailable TANI ., CHASITY Admitting Unavailable NICKI BUTT Consulting Unavailable TANI ., CHASITY Consulting Unavailable LORRI TRIPLETT Unavailable DALIA, DR Isatu LUGO Primary Care Unavailable ELIAS ., DR ELDER Rios Admitting Unavailable ELIAS ., DR ELDER Rios Attending Unavailable ELIAS ., DR ELDER Rios Consulting Unavailable [place], DR NICKI Gale Consulting Unavailable SADE WILDE Consulting Unavailable EDUARDO ., NANCY LAMA Consulting Unavailable DAWNA MADSEN Consulting Unavailable SADE WILDE Consulting Unavailable SADE WILDE Attending Unavailable SADE WILDE Admitting Unavailable DALIA, DR Isatu LUGO Primary Care Unavailable DALIA, DR Isatu LUGO Primary Care Unavailable PAY ., DR MCDONALD Attending Unavailable PAY ., DR MCDONALD Admitting Unavailable PAY ., DR MCDONALD Consulting Unavailable NIECY DURON Attending Unavailable NIECY DURON Admitting Unavailable DALIA, DR Isatu LUGO Primary Care Unavailable KARLA, DR ZAIDA Ellis Consulting Unavailable NIECY DURON Consulting Unavailable DO Anibal Valle Emergency Provider [phone] Unavailable Unavailable Annette Harris Attending Unavailable Shannon Willams Primary Care Unavailable Annette Harris Admitting Unavailable Olexa, Annette Admitting Unavailable Olexa, Annette Attending Unavailable Shannon Willams Primary Care Unavailable Niecy Duron Admitting Unavailable Niecy Duron Attending Unavailable Shannon Willams Primary Care Unavailable Shannon Willams Primary Care Unavailable Anibal Valle Admitting Unavailable Anibal Valle Attending Unavailable Unavailable Primary Care Provider UnavailLEV Aaron Referring Unavailable LEV RITTER Attending Unavailable LEX SALMON Attending Unavailable Héctor, Dr. Juan Fam Attending Unava arben Willams Jr, Dr. Eliceo Lugo Primary Care Jessica vailarosario Anaya, Dr. Juan Fam Attending Unava arbne Willams Jr, Dr. Eliceo Lugo Primary Care Jessica vailable Héctor, Dr. Juan Fam Referring Unava arben Willams Jr, Dr. Eliceo Lugo Primary Care Jessica vailable Héctor, Dr. Juan Fam Attending Unava arben Willams Jr., Eliceo LOAIZA Primary Care Provi [facility] ELICEO WILLAMS Attending Unavailable ELICEO WILLAMS Attending Unavailable ELICEO WILLAMS Referring Unavailable WINSTON HANNAH Referring Unavailable WENDYAN ELICEO JENKINS Primary Care Unavail able KAJEROMEAN , ELICEO LUGO Primary Care Unavail able NELSY CHÁVEZ Attending Unavailable KAJEROMEAN , ELICEO LUGO Primary Care Unavail able PAM WANG Attending Unavailable DALIA JENKINS, ELICEO LUGO Primary Care Unavail able PAM WANG Referring Unavailable JAIRON LAI Attending Unavailable WENDYTOMASA , ELICEO LUGO Primary Care Unavail able YONI TUTTLE Attending Unavailable STEPHONLEIGHA JENKINS, ELICEO LUGO Primary Care Unavail able DORIS ARIAS Attending Unavailable STEPHONLEIGHA JENKINS, ELICEO LUGO Primary Care Unavail able PAM WANG Attending Unavailable PAM WANG Referring Unavailable KAJEROMEAN , ELICEO LUGO Primary Care Unavail able KAJEROMEAN , ELICEO LUGO Primary Care Unavail able MASTERSISRA S Attending Unavailable DALIA JENKINS, ELICEO LUGO Primary Care Unavail able MARY OBRIEN Attending Unavailable MARY OBRIEN Referring Unavailable WINSTON HANNAH Attending Unavailable DALIA JENKINS, ELICEO LUGO Primary Care Unavail able WINSTON HANNAH Referring Unavailable STEPHONJEROMEAN , ELICEO LUGO Primary Care Unavail able KAJEROMEAN , ELICEO LUGO Primary Care Unavail able MASTERSISRA Rios S Attending Unavailable DALIA JENKINSELICEO Referring Unavail able MASTERSISRA Rios S Referring Unavailable WENDYAN , ELICEO LUGO Primary Care Unavail able WINSTON HANNAH Attending Unavailable WENDYAN ELICEO Primary Care Unavail able MASTERS ISRA S Referring Unavailable WINSTON HANNAH Referring Unavailable DALIA JENKINS, ELICEO LUGO Primary Care Unavail able WINSTON HANNAH Attending Unavailable DALIA JENKINS, ELICEO LUGO Primary Care Unavail able CARMEN DORSEY Attending Unavailable CARMEN DORSEY Attending Unavailable RADHA CASTREJON Attending Unavailable ANNETTE SWANSON Attending Unavailable CARMEN DORSEY Attending Unavailable KAILA, CARMEN Attending Unavailable KAILA, CARMEN Attending Unavailable KAILA, CARMEN Attending Unavailable KAILA, CARMEN Attending Unavailable RADHA CASTREJON Attending Unavailable KAILA, CARMEN Attending Unavailable KAILA, CARMEN Attending Unavailable KAILA, CARMEN Attending Unavailable KAILA, CARMEN Attending Unavailable GIANA MORALES Attending Unavailable GIANA MORALES Attending Unavailable CARMEN DORSEY Attending Unavailable SIOMARA MONTAGUE Attending Unavailable ENIX, DEB Referring Unavailable MATTEO QUINONES Attending Unavailable LAY, SIOMARA Referring Unavailable ANNETTE SWANSON Attending Unavailable ANNETTE SWANSON Attending Unavailable CARMEN DORSEY Attending Unavailable GIANA MORALES Attending Unavailable CARMEN DORSEY Attending Unavailable ANNETTE SWANSON Attending Unavailable GIANA MORALES Attending Unavailable GIANA MORALES Attending Unavailable Allergies Allergy Classification Reported Allergen(s) Allergy Type Date of Onset Reaction(s) Facility (20 sources) risperiDONE; Translations: [RisperDAL TABS] Drug Allergy 0 Intolerance [facility] (1 source) oxyCODONE Drug Allergy [facility] (1 source) risperiDONE Drug Allergy [facility] (1 source) risperiDONE Drug Allergy 3 [facility] Repository (3 sources) POISON LAITH EXTRACT; Translations: [POISON LAITH EXTRACT] Drug Allergy 3 Rash [facility] (1 source) POISON LAITH; Translations: [POISON LAITH] Propensity to adverse reactions to drug (disorder) 2 [facility] Rep[facility] Medications Current Medications Medication Drug Class(es) Dates Sig (Normalized) Sig (Original) acetaminophen 325 mg / oxyCODONE hydrochloride 5 mg oral tablet (20 sources) Opioid Agonist Start: 09-06-2021 take 1 tablet by mouth twice daily as needed oxyCODONE-Acetami nophen 5-325 MG 1 tablet as needed Orally up to twice daily as needed for 30 days Sep, Active Start: 09-20-2017 End: 10-01-2018 take 1 tablet by mouth every six hours Oxycodone-Acetaminophen Discontinued 1 T AB PO Q6H 30 September 20, 2017 1:00am October 01, 2018 10:41am acyclovir 400 mg oral tablet (13 sources) Herpesvirus Nucleoside Analog DNA Polymerase Inhibitor, Herpes Simplex Virus Nucleoside Analog DNA Polymerase Inhibitor, Herpes Zoster Virus Nucleoside Analog DNA Polymerase Inhibitor Start: 11-29-2020 take 1 tablet by mouth every twelve hours [id number] 200 actuat albuterol 0.09 mg/actuat metered dose inhaler (20 sources) beta2-Adrenergic Agonist Start: 06-05-2023 take 1 puff(s) by inhalation every four to six hours Albuterol Sulfate Active 2 PUFF INHALATION EVERY 4-6 HOURS June 05, 2023 12:00am Start: 09-23-2021 End: 11-17-2022 take 2 puff(s) by mouth every four hours albuterol HFA (PROVENTIL HFA, VENTOLIN HFA) 90 mcg/actuation inhaler inhale 2 puffs by mouth INTO THE LUNGS every 4 hours if needed 0 09/23/2021 11/17/2022 Discontinued Comment on above: inhale 2 puffs by mo uth INTO THE LUNGS every 4 hours if needed alendronic acid 70 mg oral tablet (1 source) Bisphosphonate Start: 06-05-2023 take 1 tablet by mouth every week Alendronate (Fosamax) 70 mg Tablet Active 70 MG PO every week June 05, 2023 12:00am cholecalciferol 0.05 mg oral capsule (20 sources) Vitamin D Start: 05-12-2023 take 1 capsule by mouth once daily Cholecalciferol (Vitamin D3) (Vitamin D3) 50 mcg (2,000 unit) capsule Active 2000 UNIT PO Daily June 05, 2023 12:00am take 1 capsule by mouth once brooke ly Cholecalciferol, Vitamin D3, 25 mcg (1,000 unit) cap Take 1,000 Units by mouth once daily. 0 Active Cholecalciferol, Vitamin D3, (VITAMIN D) 25 mcg (1,000 unit) cap Take 1,000 Units by mouth once daily. 0 Active Comment on above: Take 1,000 Units by mouth once daily. DayVigo (13 sources) DayVigo Not-Taki ng Dexlansoprazole (Dexilant) 60 mg Capsule,Biphase Delayed Releas (1 source) Start: 06-05-2023 take 1 capsule by mouth once daily Dexlansoprazole (Dexilant) 60 mg Capsule,Biphase Delayed Releas Active 60 MG PO Daily June 05, 2023 12:00am DHEA 25 MG (13 sources) DHEA 25 MG as di rected Orally Not-Taking DHEA 25 MG as di rected Orally Active diclofenac sodium 75 mg delayed release oral tablet (2 sources) Nonsteroidal Anti-inflammatory Drug Start: 07-07-2021 take 1 tablet by mouth every twelve hours Diclofenac Sodium 75 MG 1 tablet Orally Twice a day for 30 day(s) Jul, Active DULoxetine 40 mg delayed release oral capsule (13 sources) Serotonin and Norepinephrine Reuptake Inhibitor take 1 capsule by mouth once daily 0.4 ml enoxaparin sodium 100 mg/ml prefilled syringe (1 source) Low Molecular Weight Heparin Start: 06-05-2023 inject 40 mg by subcutaneous injection once daily Enoxaparin Active 40 MG SUBCUT Daily June 05, 2023 12:00am eszopiclone 3 mg oral tablet (8 sources) Start: 08-02-2023 take 1 tablet by mouth once daily as needed eszopiclone (LUNESTA) 3 MG TABS Take 1 tablet by mouth nightly as needed. At bedtime 0 08/02/2023 Active Start: 06-05-2023 take 1 tablet by yancy th once daily at bedtime Eszopiclone (Lunesta) 3 mg Tablet Active 3 MG PO Daily at bedtime June 05, 2023 12:00am famotidine 40 mg oral tablet (6 sources) Histamine-2 Receptor Antagonist Start: 08-12-2023 End: 08-22-2023 take 1 tablet by mouth once daily famotidine (PEPCID) 40 MG tablet Take 1 tablet by mouth daily for 10 days. 10 tablet 0 08/12/2023 08/22/2023 Active Start: 08-12-2023 End: 08-12-2023 Famotidine (PF) (PEPCID) inj ection 20 mg 30 actuat fluticasone furoate 0.1 mg/actuat / umeclidinium 0.0625 mg/actuat / vilanterol 0.025 mg/actuat dry powder inhaler (20 sources) Anticholinergic, Corticosteroid, beta2-Adrenergic Agonist Start: 07-20-2023 take 1 puff(s) by mouth once daily TRELEGY ELLIPTA 100-62.5-25 MCG/ACT AEPB Take 1 puff by mouth. Inhale once daily 0 07/20/2023 Active take 1 puff(s) by in halation once daily lmqyvilmnda-xpxztclij-msmuruqa (TRELEGY ELLIPTA) 100-62.5-25 mcg Inhale 1 Puff as instructed once daily. 0 Active take 1 puff(s) by in halation once daily Trelegy Ellipta 100-62.5-25 MCG/INH 1 pu ff Inhalation Once a day Not-Taking Comment on above: Inhale 1 Puff as ins tructed once daily. inulin 200 mg / lactobacillus rhamnosus gg [id number] unt oral capsule (1 source) Start: 06-07-2022 End: 07-07-2022 take 1 capsule by mouth once daily lactobacillus rhamnosus (CULTURELLE) 10 billion cell -200 mg capsule Take 1 capsule by mouth once daily. 30 capsule 0 06/07/2022 07/07/2022 Active Comment on above: Take 1 capsule by [facility] once daily. iv contrast (will be provide d with radiology test) (2 sources) Start: 07-26-2022 End: 07-27-2022 iv contrast (will be provide d with radiology test) CT ABD/PEL -Inject, intravenously, once for 1 dose.No IV access, insert saline lock prior to the beginning of sedation, infusion, injection of imaging exam. Discontinue saline lock post exam. If Pt. has a central line or IVAD, may access for administration according to line specific nursing protocol. Once exam is complete flush line and de-access according to line specific nursing protocol in the CT contrast administration guidelines link. 1 Each 0 07/26/2022 07/27/2022 Active Comment on above: CT ABD/PEL -Inject, intravenously, once for 1 dose.No IV access, insert saline lock prior to the beginning of sedation, infusion, injection of imaging exam. Discontinue saline lock post exam. If Pt. has a central line or IVAD, may access for administration according to line specific nursing protocol. Once exam is complete flush line and de-access according to line specific nursing protocol in the CT contrast administration guidelines link. ketorolac tromethamine 10 mg oral tablet (19 sources) Nonsteroidal Anti-inflammatory Drug, Cyclooxygenase Inhibitor Start: 04-17-2023 ketorolac (TORADOL) 10 MG tablet Take at onset of migraine, may take up to 2 times a day. No more than 1-2 a week 0 04/17/2023 Active Start: 02-01-2020 Toradol per 15 mg Jan, 60 mg LORazepam 1 mg oral tablet (9 sources) Benzodiazepine Start: 07-19-2023 take 1 tablet by mouth once daily for anxiety LORazepam (ATIVAN) 1 MG tablet take 1 tablet by mouth once daily if needed for anxiety 0 07/19/2023 Active Start: 06-05-2023 take 1 mg by mouth twice daily Lorazepam Active 1 MG PO Twice daily June 05, 2023 12:00am take 1 tablet by yancy th every twenty-four hours LORazepam 0.5 MG 1 tablet at bedtime as needed Orally Once a day Active ondansetron 4 mg disintegrating oral tablet (18 sources) Serotonin-3 Receptor Antagonist Start: 08-12-2023 take 1 tablet by mouth every eight hours as needed Ondansetron (ZOFRAN-ODT) 4 MG disintegrating tablet Take 1 tablet by mouth every 8 hours as needed for Nausea and/or Vomiting. Dissolve on tongue then swallow. 20 tablet 0 08/12/2023 Active Start: 08-12-2023 End: 08-12-2023 ondansetron hcl (ZOFRAN) inj ection 4 mg Start: 05-10-2022 take 1 tablet by yancy th every eight hours as needed Zofran ODT 4 MG 1 tablet on the tongue and allow to dissolve Orally every 8 hrs as needed for 4 days May, Not-Taking oxyCODONE hydrochloride 5 mg oral tablet (4 sources) Opioid Agonist Start: 04-05-2022 End: 04-12-2022 take 1 tablet by mouth every six hours as needed for pain oxyCODONE IR (ROXICODONE) 5 mg immediate release tablet Indications: Post-op pain Take 1 tablet by mouth every 6 hours as needed for pain for up to 7 days. 25 tablet 0 04/05/2022 04/12/2022 Active Start: 12-27-2021 End: 02-08-2022 take 1 tablet by mouth every six hours as needed for pain oxyCODONE IR (ROXICODONE) 5 mg immediate release tablet Indications: Postoperative pain Take 1 tablet by mouth every 6 hours as needed for pain. 28 tablet 0 12/27/2021 02/08/2022 Discontinued (Course of therapy completed) Comment on above: Take 1 tablet by yancy th every 6 hours as needed for pain. Take 1 tablet by yancy th every 6 hours as needed for pain for up to 7 days. predniSONE 20 mg oral tablet (10 sources) Start: 08-19-2021 take 1 tablet by mouth every twelve hours ramelteon 8 mg oral tablet (16 sources) Melatonin Receptor Agonist Start: 10-14-2022 End: 11-21-2022 take 1 tablet by mouth once daily at bedtime ramelteon (ROZEREM) 8 mg tablet Take 1 tablet by mouth daily at bedtime. 30 tablet 2 10/14/2022 11/21/2022 Discontinued Comment on above: Take 1 tablet by yancy th daily at bedtime. rOPINIRole 1 mg oral tablet (20 sources) Nonergot Dopamine Agonist Start: 08-01-2023 take 1 tablet by mouth once daily at bedtime ROPINIRole (REQUIP) 2 MG tablet Take 1 tablet by mouth daily. At bedtime 0 08/01/2023 Active Start: 08-01-2023 take 1 tablet by yancy th once daily in the morning rOPINIRole (REQUIP) 1 MG tablet Take 1 tablet by mouth every morning. 0 08/01/2023 Active Start: 06-05-2023 take 1 mg by mouth once daily Ropinirole Active 1 MG PO Daily June 05, 2023 12:00am Start: 09-19-2021 take 1 mg by mouth t wice daily, then take 1 mg by mouth in the morning, then take 1 tablet by mouth in the evening rOPINIRole (REQUIP) 2 mg tablet Take 1 mg by mouth twice daily. Takes 1 mg in the AM and 2 mg PM 0 09/19/2021 Active Start: 06-19-2019 take 2 mg by mouth o nce daily at bedtime Ropinirole (Requip) 5 mg Tablet Active 2 MG PO Daily at bedtime June 19, 2019 12:00am Comment on above: Take 2 mg by mouth t wice daily. Takes 2 mg in the AM and 4 mg PM Take 1 mg by mouth t wice daily. Takes 1 mg in the AM and 2 mg PM sucralfate 1000 mg oral tablet (20 sources) Aluminum Complex Start: 08-12-2023 End: 08-22-2023 take 1 tablet by mouth four times daily as needed sucralfate (CARAFATE) 1 g tablet Take 1 tablet by mouth 4 times daily as needed for up to 10 days. 40 tablet 0 08/12/2023 08/22/2023 Active Start: 12-08-2022 take 10 mL by mouth twice daily sucralfate (CARAFATE) 100 mg/mL suspension Indications: Gastroesophageal reflux disease with esophagitis without hemorrhage Take 10 mL by mouth twice daily. 600 mL 2 12/08/2022 Active Start: 12-07-2022 End: 12-08-2022 take 1 tablet by mouth twice daily sucralfate (CARAFATE) 1 gram tablet Take 1 tablet by mouth twice daily. 60 tablet 1 12/07/2022 12/08/2022 Discontinued Comment on above: Take 10 mL by mouth twice daily. Take 1 tablet by yancy th twice daily. traMADol hydrochloride 50 mg oral tablet (9 sources) Opioid Agonist Start: 08-09-2023 take 1 tablet by mouth every six hours as needed traMADol (ULTRAM) 50 MG tablet Take 1 tablet by mouth every 6 hours as needed. 0 08/09/2023 Active Start: 07-01-2019 End: 02-18-2020 take 1 tablet by mouth twice daily Tramadol Discontinued 1 TAB PO Twice daily July 01, 2019 12:00am February 18, 2020 10:26am Start: 06-18-2019 End: 06-19-2019 take 50 mg by mouth twice daily Tramadol Discontinued 50 MG PO Twice daily June 18, 2019 12:00am June 19, 2019 1:23pm traZODone hydrochloride 50 mg oral tablet (20 sources) Serotonin Reuptake Inhibitor Start: 07-24-2023 take 3 tablets by mouth at bedtime traZODone (DESYREL) 50 MG tablet take 3 tablet by mouth at bedtime 0 07/24/2023 Active Start: 06-05-2023 take 200 mg by mouth once daily at bedtime Trazodone Active 200 MG PO Daily at bedtime June 05, 2023 12:00am Start: 03-04-2022 take 4 tablets by mo uth once daily at bedtime traZODone (DESYREL) 50 mg tablet Take 200 mg by mouth daily at bedtime. 0 03/04/2022 Active Start: 03-04-2022 take 3 tablets by mo uth once daily at bedtime traZODone (DESYREL) 50 mg tablet Take 150 mg by mouth daily at bedtime. 0 03/04/2022 Active Start: 11-02-2018 End: 12-19-2018 Trazodone Discontinued TABLE T November 02, 2018 1:00am December 19, 2018 1:17pm Start: 11-02-2018 End: 12-19-2018 Trazodone Discontinued TABLE T November 02, 2018 1:00am December 19, 2018 1:17pm take 2 tablets by mo [facility] at bedtime traZODone HCl - 100 MG Oral Tablet TAKE 2 TABLETS AT BEDTIME. Quantity: 0 Refills: 0 Ordered: 13-Jun-2023 DO [facility] - 150 MG Oral Tablet TAKE 1 TABLET AT BEDTIME. Quantity: 0 Refills: 0 Ordered: 12-May-2022 DO Active Comment on above: Take 150 mg by mouth daily at bedtime. Take 200 mg by mouth daily at bedtime. Vitamin B12 100 MCG (9 sources) Vitamin B12 100 MCG as directed Orally Active Completed/Discontinued Medications Medication Drug Class(es) Dates Sig (Normalized) Sig (Original) acetaminophen 500 mg oral tablet (4 sources) Start: 08-12-2023 End: 08-12-2023 Acetaminophen (OFIRMEV) IVPB 1,000 mg Start: 12-27-2021 End: 02-08-2022 take 2 tablets by mouth every six hours as needed acetaminophen (TYLENOL EXTRA STRENGTH) 500 mg tablet Take 2 tablets by mouth every 6 hours as needed for pain. 0 12/27/2021 02/08/2022 Discontinued (Course of therapy completed) Comment on above: Take 2 tablets by [facility] every 6 hours as needed for pain. acetaminophen 250 mg / aspirin 250 mg / caffeine 65 mg oral tablet (4 sources) Platelet Aggregation Inhibitor, Nonsteroidal Anti-inflammatory Drug, Central Nervous System Stimulant, Methylxanthine Start: 09-13-2017 End: 10-01-2018 take 1 tablet by mouth every four to six hours Smyxwrr-Jzomnvykurarm-Walnqnpi (Excedrin Migraine) 250-250-65 mg Tablet Discontinued 1 - 2 TAB PO EVERY 4-6 HOURS September 13, 2017 1:00am October 01, 2018 10:40am ALPRAZolam 1 mg oral tablet (4 sources) Benzodiazepine Start: 09-13-2017 End: 10-01-2018 take 1 tablet by mouth three times daily Alprazolam Discontinued 1 TAB PO Three times daily September 13, 2017 1:00am October 01, 2018 10:40am amitriptyline hydrochloride 25 mg oral tablet (4 sources) Tricyclic Antidepressant Start: 02-18-2020 End: 06-05-2023 take 125 mg by mouth once daily Amitriptyline Discontinued 125 MG PO Daily February 18, 2020 12:00am June 05, 2023 10:13am ARIPiprazole 30 mg oral tablet (20 sources) Atypical Antipsychotic Start: 09-27-2021 take 1 tablet by mouth once daily ARIPiprazole (ABILIFY) 30 mg tablet Take 30 mg by mouth once daily. 0 09/27/2021 Active Start: 09-13-2017 End: 10-01-2018 take 1 tablet by mouth once daily in the morning Aripiprazole (Abilify) 20 mg Tablet Discontinued 1 TAB PO Every morning September 13, 2017 1:00am October 01, 2018 10:40am Comment on above: Take 30 mg by mouth once daily. atenolol 25 mg oral tablet (20 sources) beta-Adrenergic Zack Start: 07-07-2023 take 1 tablet by mouth once atenolol (TENORMIN) 25 mg tablet Take 1 tablet by mouth every afternoon. 0 07/07/2023 Active Start: 02-18-2020 take 25 mg by mouth once daily Atenolol Active 25 MG PO Daily February 18, 2020 12:00am Start: 02-18-2020 End: 11-17-2022 take 1 tablet by mouth once daily Atenolol Active 1 TA B PO Daily February 18, 2020 12:00am Comment on above: Take 50 mg by mouth once daily. Take 1 tablet by yancy th every afternoon. atorvastatin 20 mg oral tablet (20 sources) HMG-CoA Reductase Inhibitor Start: 03-10-2022 take 1 tablet by mouth once daily atorvastatin (LIPITOR) 20 mg tablet Take 20 mg by mouth once daily. 0 03/10/2022 Active Comment on above: Take 20 mg by mouth once daily. brexpiprazole 3 mg oral tablet (4 sources) Atypical Antipsychotic Start: 02-18-2020 End: 06-05-2023 take 1 tablet by mouth once daily Brexpiprazole (Rexulti) 3 mg Tablet Discontinued 3 MG PO Daily February 18, 2020 12:00am June 05, 2023 10:13am 12 hr carBAMazepine 400 mg extended release oral tablet (20 sources) Mood Stabilizer Start: 09-28-2021 End: 11-17-2022 take 1 tablet by mouth every twelve hours, then take 1 tablet by mouth every twelve hours carBAMazepine XR (TEGRETOL XR) 400 mg 12 hr tablet Take 400 mg by mouth q 12 HR. 0 09/28/2021 11/17/2022 Discontinued take 1 tablet by mouth every twe lve hours TEGretol 200 MG 1 tablet Orally Twice a day Active take 1 tablet by mouth twice brooke ly TEGretol-XR 400 MG Oral Tablet Extended Release 12 Hour TAKE 1 TABLET TWICE DAILY. Quantity: 0 Refills: 0 Ordered: 12-May-2022 DO Active Comment on above: Take 400 mg by mouth q 12 HR. cefTRIAXone (18 sources) Cephalosporin Antibacterial Start: 07-14-2016 Rocephin 500 mg Jul, 500 mg celecoxib 200 mg oral capsule (4 sources) Nonsteroidal Anti-inflammatory Drug Start: 06-18-2019 End: 02-18-2020 take 1 tablet by mouth once daily Celecoxib Discontinued 1 TAB PO Daily June 18, 2019 12:00am February 18, 2020 10:25am cephalexin 500 mg oral capsule (4 sources) Cephalosporin Antibacterial Start: 09-20-2017 End: 10-01-2018 take 1 capsule by mouth every eight hours Cephalexin (Keflex) 500 mg capsule Discontinued 500 MG PO Q8H 21 September 20, 2017 1:00am October 01, 2018 10:40am cetirizine hydrochloride 5 mg oral tablet (4 sources) Histamine-1 Receptor Antagonist Start: 10-15-2018 End: 12-19-2018 Cetirizine Discontinued 1 TAB PO As Directed October 15, 2018 1:00am December 19, 2018 1:13pm clonazePAM 0.5 mg oral tablet (20 sources) Benzodiazepine take 1 tablet by mouth every twenty-four hours KlonoPIN 0.5 MG 1 tablet at bedtime Orally Once a day Not-Taking take 0.5 mg by mouth twice daily clonazePAM (KLONOPIN) 1 mg tablet Take 0.5 mg by mouth twice daily. 0 Active Comment on above: Take 0.5 mg by mouth twice daily. CPAP/BIPAP/OTHER (20 sources) Start: 12-29-2022 End: 01-10-2023 CPAP/BIPAP/OTHER Type .CPAPS ettings into a note to see current settings/supplies/DME information. 1 Each 0 12/29/2022 01/10/2023 Discontinued Start: 12-29-2022 End: 05-15-2050 CPAP/BIPAP/OTHER Type .CPAPS ettings into a note to see current settings/supplies/DME information. 1 Each 0 12/29/2022 05/15/2050 Active Start: 10-14-2022 End: 12-29-2022 CPAP/BIPAP/OTHER Type .CPAPS ettings into a note to see current settings/supplies/DME information. 1 Each 0 10/14/2022 12/29/2022 Discontinued Start: 10-14-2022 End: 02-28-2050 CPAP/BIPAP/OTHER Type .CPAPS ettings into a note to see current settings/supplies/DME information. 1 Each 0 10/14/2022 02/28/2050 Active Comment on above: Type .CPAPSettings i nto a note to see current settings/supplies/DME information. cyclobenzaprine hydrochloride 10 mg oral tablet (20 sources) Muscle Relaxant Start: 09-13-2017 End: 10-01-2018 take 3 tablets by mouth once daily at bedtime Cyclobenzaprine Discontinued 3 TAB PO Daily at bedtime September 13, 2017 1:00am October 01, 2018 10:41am cyclobenzaprine (FLEXERIL) 10 mg tablet Take by mouth three times daily. 0 Active take 1 tablet by yancy twice daily as needed Cyclobenzaprine HCl 10 MG 1 tablet as ne eded Orally up to twice daily as needed for 30 day(s) Active Comment on above: Take by mouth three times daily. dexlansoprazole 60 mg delayed release oral capsule (20 sources) Proton Pump Inhibitor Start: 10-05-2021 End: 04-11-2023 take 1 capsule by mouth before breakfast Dexlansoprazole 60 mg CpDM Indications: Gastroesophageal reflux disease, unspecified whether esophagitis present take 1 capsule by mouth before breakfast 30 capsule 5 04/11/2023 Active Comment on above: take 1 capsule by mo ut every morning BEFORE BREAKFAST take 1 capsule by mo ut before breakfast docusate sodium 50 mg / sennosides, fpc 8.6 mg oral tablet (4 sources) Start: 09-20-2017 End: 10-01-2018 take 2 tablets by mouth twice daily Sennosides-Docusate Sodium (Dok Plus) 8.6-50 mg Tablet Discontinued 2 TAB PO Twice daily 40 September 20, 2017 1:00am October 01, 2018 10:42am estradiol 1 mg oral tablet (4 sources) Estrogen Start: 06-19-2019 End: 02-18-2020 take 1 tablet by mouth once daily Estradiol Discontinued 1 TAB PO Daily June 19, 2019 12:00am February 18, 2020 10:25am 24 hr fexofenadine hydrochloride 180 mg / pseudoephedrine hydrochloride 240 mg extended release oral tablet (4 sources) alpha-Adrenergic Agonist, Histamine-1 Receptor Antagonist Start: 12-19-2018 End: 06-18-2019 take 1 tablet by mouth once daily in the morning, then take 1 tablet by mouth every twenty-four hours Fexofenadine-Pseudoephe drine (Ember-D 24 Hour) 180-240 mg Tablet Extended Release 24 Hr Discontinued 1 TAB PO Every morning December 19, 2018 1:00am June 18, 2019 3:04pm fluconazole 150 mg oral tablet (4 sources) Azole Antifungal Start: 02-18-2020 End: 06-05-2023 Fluconazole (Diflucan) 150 mg tablet Discontinued 150 MG PO Once 1 1 February 18, 2020 12:00am June 05, 2023 10:13am take one PO, if still symptomatic then take another pill in 72 hrs fluticasone propionate 0.05 mg/actuat metered dose nasal spray (20 sources) Corticosteroid Start: 10-15-2018 End: 11-17-2022 Fluticasone Propionate (Flonase Allergy Relief) 50 mcg/actuation Morrison,Suspension Discontinued 2 SPRAY INTRANASAL Daily October 15, 2018 1:00am June 18, 2019 3:04pm Comment on above: Use 1 Morrison in each nostril once daily. Fluticasone Propion-Salmeterol (8 sources) Corticosteroid, beta2-Adrenergic Agonist Start: 06-18-2019 End: 06-05-2023 take 1 puff(s) by inhalation twice daily Fluticasone Propion-Salmeterol (Advair Diskus) 100-50 mcg/dose Blister With Device Discontinued 1 PUFF INHALATION Twice daily June 18, 2019 12:00am June 05, 2023 10:13am Start: 06-18-2019 take 1 puff(s) by in halation twice daily Fluticasone Propion-Salmeterol (Advair Diskus) 100-50 mcg/dose Blister With Device Active 1 PUFF INHALATION Twice daily June 18, 2019 12:00am Start: 06-18-2019 take 1 puff(s) by in halation twice daily Fluticasone Propion-Salmeterol (Advair Diskus) 100-50 mcg/dose Blister With Device Active 1 PUFF INHALATION Twice daily June 17, 2019 11:00pm Start: 10-15-2018 End: 06-18-2019 take 1 puff(s) by inhalation twice daily Fluticasone Propion-Salmeterol Discontinued 2 PUFF INHALATION Twice daily October 15, 2018 1:00am June 18, 2019 3:04pm Start: 10-15-2018 End: 06-18-2019 take 1 puff(s) by inhalation twice daily Fluticasone Propion-Salmeterol Discontinued 2 PUFF INHALATION Twice daily October 15, 2018 12:00am June 18, 2019 2:04pm 1.5 ml fremanezumab-vfrm 150 mg/ml auto-injector (11 sources) Start: 07-19-2023 AJOVY AUTOINJE CTOR 225 mg/1.5 mL auto-injector inject 1 AND 1/2 milliliters subcutaneously every 28 DAYS 0 07/19/2023 Active Start: 06-05-2023 Fremanezumab-V frm (Ajovy Autoinjector) 225 mg/1.5 mL auto-injector Active 225 MG SUBCUT every month June 05, 2023 12:00am Comment on above: inject 1 AND 1/2 mil liliters subcutaneously every 28 DAYS 1 ml galcanezumab-gnlm 120 m g/ml prefilled syringe (20 sources) galcanezumab-gnl m (EMGALITY SYRINGE) 120 mg/mL syringe Inject subcutaneously once every month. Do not shake. 0 Active Comment on above: Inject subcutaneousl y once every month. Do not shake. hydrOXYzine hydrochloride 50 mg oral tablet (8 sources) Antihistamine Start: 02-18-2020 End: 06-05-2023 take 50 mg by mouth once daily at bedtime Hydroxyzine Hcl Discontinued 50 MG PO Daily at bedtime February 18, 2020 12:00am June 05, 2023 10:13am Start: 12-19-2018 End: 06-18-2019 take 25 mg by mouth twice daily Hydroxyzine Hcl Discontinued 25 MG PO Twice daily December 19, 2018 1:00am June 18, 2019 3:04pm ibuprofen 200 mg oral tablet (3 sources) Nonsteroidal Anti-inflammatory Drug Start: 12-27-2021 End: 02-08-2022 take 200-400 mg by mouth every four hours as needed ibuprofen (MOTRIN) 200 mg tablet Take 1-2 tablets by mouth every 4 hours as needed for pain. 0 12/27/2021 02/08/2022 Discontinued (Course of therapy completed) Comment on above: Take 1-2 tablets by mouth every 4 hours as needed for pain. lactobacillus rhamnosus gg [id number] unt oral capsule (20 sources) Start: 06-09-2022 End: 11-17-2022 take 1 capsule by mouth once daily lactobacillus rhamnosus (CULTURELLE) 10 billion cell capsule Take 1 capsule by mouth once daily. 30 capsule 0 06/09/2022 11/17/2022 Discontinued Start: 04-05-2022 End: 05-30-2022 take 1 capsule by mouth once daily lactobacillus rhamnosus (CULTURELLE) 10 billion cell capsule Take 1 capsule by mouth once daily. 30 capsule 0 04/22/2022 05/30/2022 Discontinued Start: 12-27-2021 take 1 capsule by mo ut once daily lactobacillus rhamnosus (CULTURELLE) 10 billion cell capsule Take 1 capsule by mouth once daily. 30 capsule 0 12/27/2021 Active Comment on above: Take 1 capsule by mo ut once daily. lamoTRIgine 200 mg oral tablet (8 sources) Mood Stabilizer, Anti-epileptic Agent Start: 12-19-2018 End: 06-05-2023 take 1 tablet by mouth once daily Lamotrigine (Lamictal) 200 mg Tablet Discontinued 200 MG PO Daily December 19, 2018 1:00am June 05, 2023 10:13am Start: 10-15-2018 End: 12-19-2018 take 1 tablet by mouth twice daily Lamotrigine Discontinued 1 TAB PO Twice daily October 15, 2018 1:00am December 19, 2018 1:14pm linaclotide (4 sources) Guanylate Cyclase-C Agonist Start: 10-01-2018 End: 06-19-2019 take 145 ug by mouth once daily Linaclotide Discontinued 145 MCG PO Daily October 01, 2018 1:00am June 19, 2019 1:23pm Start: 10-01-2018 End: 06-19-2019 take 145 ug by mouth once daily Linaclotide Discontinued 145 MCG PO Daily October 01, 2018 12:00am June 19, 2019 12:23pm lisdexamfetamine dimesylate 40 mg oral capsule (4 sources) Central Nervous System Stimulant Start: 02-18-2020 End: 06-05-2023 take 1 capsule by mouth once daily Lisdexamfetamine (Vyvanse) 40 mg Capsule Discontinued 40 MG PO Daily February 18, 2020 12:00am June 05, 2023 10:13am LOCM iohexol (OMNIPAQUE 300 MG/ML) injection 100 mL (1 source) Start: 08-12-2023 End: 08-12-2023 LOCM iohexol (OMNIPAQUE 300 MG/ML) injection 100 mL lurasidone hydrochloride 40 mg oral tablet (4 sources) Atypical Antipsychotic Start: 06-18-2019 End: 02-18-2020 take 1 tablet by mouth once daily Lurasidone (Latuda) 40 mg tablet Discontinued 60 MG PO Daily June 18, 2019 12:00am February 18, 2020 10:26am methylphenidate hydrochloride 20 mg oral tablet (4 sources) Central Nervous System Stimulant Start: 09-13-2017 End: 10-01-2018 take 1 tablet by mouth twice daily Methylphenidate Hcl Discontinued 1 TAB PO Twice daily September 13, 2017 1:00am October 01, 2018 10:43am methylPREDNISolone 4 mg oral tablet (20 sources) Corticosteroid Start: 05-10-2022 methylPREDNISolone 4 MG as directed Orally Once a day for 6 days May, Not-Taking metroNIDAZOLE 500 mg oral tablet (13 sources) Nitroimidazole Antimicrobial Start: 02-09-2022 take 1 tablet by mouth three times daily metroNIDAZOLE (FLAGYL) 500 mg tablet Indications: Follow-up examination after colorectal surgery Take 1 tablet by mouth three times daily. Take 1 tablet at 6pm, 7pm, and 11pm, the evening prior to surgery. 3 tablet 0 02/09/2022 Active Start: 01-05-2022 End: 02-08-2022 take 1 tablet by mouth twice daily metroNIDAZOLE (FLAGYL) 500 mg tablet Take 1 tablet by mouth twice daily. for vaginosis. Do not drink alcohol while taking this medication 14 tablet 0 01/05/2022 02/08/2022 Discontinued (Course of therapy completed) Comment on above: Take 1 tablet by yancy twice daily. for vaginosis. Do not drink alcohol while taking this medication Take 1 tablet by yancy three times daily. Take 1 tablet at 6pm, 7pm, and 11pm, the evening prior to surgery. mirtazapine 15 mg oral tablet (4 sources) Start: 12-19-2018 End: 02-18-2020 take 2 tablets by mouth once daily Mirtazapine (Remeron) 15 mg Tablet Discontinued 30 MG PO Daily December 19, 2018 1:00am February 18, 2020 10:26am montelukast 10 mg oral tablet (4 sources) Leukotriene Receptor Antagonist Start: 10-01-2018 End: 12-19-2018 take 10 mg by mouth once daily in the evening Montelukast Discontinued 10 MG PO Every evening October 01, 2018 1:00am December 19, 2018 1:14pm 1 ml morphine sulfate 4 mg/ml cartridge (1 source) Opioid Agonist Start: 08-12-2023 End: 08-12-2023 Morphine Sulfate injection 4 mg neomycin sulfate 500 mg oral tablet (10 sources) Aminoglycoside Antibacterial Start: 02-09-2022 neomycin 500 mg tablet Indications: Follow-up examination after colorectal surgery Take 2 tablets by mouth as directed. Take 2 tablet at 6pm, 7pm, and 11pm the evening prior to surgery. 6 tablet 0 02/09/2022 Active Comment on above: Take 2 tablets by [facility] as directed. Take 2 tablet at 6pm, 7pm, and 11pm the evening prior to surgery. nitrofurantoin, macrocrystals 25 mg / nitrofurantoin, monohydrate 75 mg oral capsule (7 sources) Nitrofuran Antibacterial Start: 02-18-2020 End: 06-05-2023 take 1 capsule by mouth twice daily at mealtime Nitrofurantoin Monohyd/M-Cryst (Macrobid) 100 mg capsule Discontinued 100 MG PO Twice daily 10 February 18, 2020 12:00am June 05, 2023 10:13am must administer with a meal/food Comment on above: Take 1 capsule by [facility] twice daily. nystatin [id number] unt/ml topical cream (20 sources) Polyene Antifungal Start: 02-08-2022 End: 11-17-2022 nystatin (MYCOSTATIN) cream Indications: Yeast infection of the skin Apply 1 application to affected area twice daily. 30 g 0 02/08/2022 11/17/2022 Discontinued Start: 11-29-2020 take 4 mL by mouth four times daily Start: 11-29-2020 Comment on above: Apply 1 application to affected area twice daily. omeprazole 40 mg delayed release oral capsule (17 sources) Proton Pump Inhibitor Start: 09-13-2017 End: 06-05-2023 take 40 mg by mouth twice daily Omeprazole Discontinued 40 MG PO Twice daily September 13, 2017 1:00am June 05, 2023 10:13am Omeprazole Not-T aking 24 hr oxybutynin chloride 10 mg extended release oral tablet (4 sources) Cholinergic Muscarinic Antagonist Start: 10-01-2018 End: 06-19-2019 take 1 tablet by mouth once daily Oxybutynin Chloride (Ditropan Xl) 10 mg Tablet Extended Release 24hr Discontinued 10 MG PO Daily October 01, 2018 1:00am June 19, 2019 1:23pm phenazopyridine hydrochloride 200 mg oral tablet (4 sources) Start: 02-18-2020 End: 06-05-2023 take 1 tablet by mouth every eight hours Phenazopyridine (Pyridium) 200 mg tablet Discontinued 200 MG PO Q8H 6 2 February 18, 2020 12:00am June 05, 2023 10:13am polyethylene glycol 3350 65108 mg powder for oral solution (3 sources) Osmotic Laxative Start: 12-27-2021 End: 02-08-2022 polyethylene glycol 3350 (MIRALAX) 17 gram/dose powder Take 17 g by mouth as directed. Dissolve dose in 4 - 8 ounces of liquid and take as directed. 0 12/27/2021 02/08/2022 Discontinued (Course of therapy completed) Comment on above: Take 17 g by mouth a s directed. Dissolve dose in 4 - 8 ounces of liquid and take as directed. pregabalin 150 mg oral capsule (16 sources) Start: 07-01-2019 End: 02-18-2020 take 1 tablet by mouth once daily Pregabalin (Lyrica) 150 mg Capsule Discontinued 1 TAB PO Daily July 01, 2019 12:00am February 18, 2020 10:26am Start: 06-18-2019 End: 06-19-2019 take 1 capsule by mouth twice daily Pregabalin (Lyrica) 150 mg Capsule Discontinued 150 MG PO Twice daily June 18, 2019 12:00am June 19, 2019 1:23pm Start: 11-02-2018 End: 12-19-2018 Pregabalin (Lyrica) 150 mg c apsule Discontinued November 02, 2018 1:00am December 19, 2018 1:15pm Start: 10-01-2018 End: 10-15-2018 take 1 capsule by mouth once daily Pregabalin (Lyrica) 150 mg capsule Discontinued 150 MG PO Daily October 01, 2018 1:00am October 15, 2018 3:24pm prucalopride 2 mg oral tablet (20 sources) Start: 01-05-2022 End: 03-14-2022 take 1 tablet by mouth once daily MOTEGRITY 2 mg tab tablet Indications: Chronic idiopathic constipation take 1 tablet by mouth once daily 30 tablet 6 01/05/2022 03/14/2022 Discontinued (Discontinued by another Health Care Provider) Comment on above: take 1 tablet by [facility] once daily psyllium 520 mg oral capsule (3 sources) Start: 12-27-2021 End: 02-08-2022 psyllium Husk (METAMUCIL) 0. 52 gram capsule Take 1 capsule by mouth as directed. As needed for constipation 0 12/27/2021 02/08/2022 Discontinued (Course of therapy completed) Comment on above: Take 1 capsule by mo [facility] as directed. As needed for constipation QUEtiapine 200 mg oral tablet (4 sources) Atypical Antipsychotic Start: 10-01-2018 End: 12-19-2018 take 200 mg by mouth once daily Quetiapine Discontinued 200 MG PO Daily October 01, 2018 1:00am December 19, 2018 1:16pm simethicone 125 mg chewable tablet (20 sources) Start: 10-11-2022 take 2 tablets by mouth three times daily as needed Simethicone (GAS RELIEF, SIMETHICONE,) 125 mg chewable tablet Indications: Gas bloat syndrome Take 2 tablets by mouth three times daily as needed. 180 tablet 5 10/11/2022 Active Comment on above: Take 2 tablets by mo [facility] three times daily as needed. 50 ml sodium chloride 9 mg/ml injection (1 source) Start: 08-12-2023 End: 08-12-2023 sodium chloride 0.9% bolus 0.9 % solution 1,000 mL sulfamethoxazole 800 mg / trimethoprim 160 mg oral tablet (1 source) Dihydrofolate Reductase Inhibitor Antibacterial, Sulfonamide Antimicrobial Start: 09-27-2023 End: 09-30-2023 take 1 tablet by mouth twice daily sulfamethoxazol e-trimethoprim (BACTRIM DS) 800-160 mg per tablet Indications: Urinary frequency Take 1 tablet by mouth two times a day for 3 days. 6 tablet 0 09/27/2023 09/30/2023 Comment on above: Take 1 tablet by yancy two times a day for 3 days. tiZANidine 2 mg oral tablet (20 sources) Central alpha-2 Adrenergic Agonist Start: 04-05-2022 End: 11-17-2022 take 1 tablet by mouth every eight hours as needed tiZANidine (ZANAFLEX) 2 mg tablet Take 1 tablet by mouth every 8 hours as needed. 30 tablet 0 04/05/2022 11/17/2022 Discontinued Comment on above: Take 1 tablet by yancy every 8 hours as needed. Trelegy Ellipta 100-62.5-25 MCG/INH (10 sources) take 1 puff(s) by inhalation once daily Trelegy Ellipta 100-62.5-25 MCG/INH 1 puff Inhalation Once a day Not-Taking triamcinolone acetonide 40 mg/ml injectable suspension (20 sources) Corticosteroid Start: Kenalog-40 05 Oct, 2022 40 mg Start: 08-19-2021 KENALOG - 10 m g 14 Aug, 2021 10 mg vitamin b12 1 mg oral tablet (20 sources) Vitamin B12 take 1 tablet by mouth once daily cyanocobalamin (VITAMIN B-12) 1,000 mcg tab Take 1,000 mcg by mouth once daily. 0 Active Comment on above: Take 1,000 mcg by mo [facility] once daily. vortioxetine 10 mg oral tablet (20 sources) End: 11-17-2022 take 1 tablet by mouth once daily vortioxetine (TRINTELLIX) 10 mg tablet Take 10 mg by mouth once daily. 0 11/17/2022 Discontinued take 1 tablet by mouth once arleen y Trintellix 20 MG Oral Tablet 1 TAB DAILY Quantity: 0 Refills: 0 Ordered: 12-May-2022 DO Active Comment on above: Take 10 mg by mouth once daily. Problems Active Problems Problem Classification Problem Date Documented Date Episodic/Chronic Anxiety disorders (7 sources) Anxiety; Translations: [Anxiety state, unspecified] Onset: 09-13-20 Chronic Asthma (20 sources) Asthma; Translations: [Unspecified asthma, uncomplicated] Onset: 10-15-20 21 10-15-2021 Chronic Attention-deficit, conduct, and disruptive behavior disorders (1 source) Attention-deficit hyperactivity disorder, unspecified type; Translations: [ADHD UNSPECIFIED TYPE] Onset: 03-08-20 Chronic Bacterial infection; unspecified site (1 source) Personal history of Methicillin resistant Staphylococcus aureus infection; Translations: [PERS HX METHICILLIN RSIST STAPH INF] Onset: 03-08-20 Episodic Conditions associated with dizziness or vertigo (7 sources) Postural dizziness; Translations: [Dizziness and giddiness] 02-18-2020 Episodic Disorders of lipid metabolism (1 source) Pure hypercholesterolemia, unspecified; Translations: [PURE HYPERCHOLESTEROLEMIA UNSPEC] Onset: 03-08-20 Chronic Esophageal disorders (20 sources) Gastroesophageal reflux disease; Translations: [Gastro-esophageal reflux disease without esophagitis] Onset: 10-15-2010-15-2021 Chronic Essential hypertension (20 sources) Hypertensive disorder; Translations: [Essential (primary) hypertension] Onset: 03-08-20 23 10-08-2020 Chronic Fluid and electrolyte disorders (1 source) Dehydration; Translations: [DEHYDRATION] Onset: 03-08-20 Episodic Gastrointestinal hemorrhage (3 sources) Gastrointestinal hemorrhage; Translations: [Hemorrhage of gastrointestinal tract, unspecified] Episodic Genitourinary symptoms and ill-defined conditions (5 sources) Incomplete emptying of bladder; Translations: [Retention of urine, unspecified] 07-31-2023 Episodic Headache; including migraine (1 source) Migraine, unspecified, not intractable, without status migrainosus; Translations: [MIGRAINE UNS NOT INTRACT W/O SM] Onset: 11-03-20 Chronic Headache; including migraine (4 sources) Headache; including migraine; Translations: [HEADACHE UNSPECIFIED] Onset: 01-28-20 Malaise and fatigue (8 sources) Fatigue; Translations: [Other malaise and fatigue] Onset: 03-06-20 Episodic Menopausal disorders (20 sources) Genitourinary syndrome of menopause; Translations: [Other specified menopausal and perimenopausal disorders] Onset: 08-04-20 21 08-04-2021 Chronic Miscellaneous mental health disorders (2 sources) Primary insomnia; Translations: [Primary insomnia] Onset: 08-01-20 Chronic Mood disorders (20 sources) Bipolar I disorder; Translations: [Bipolar disorder, unspecified] Onset: 09-13-20 22 10-08-2020 Chronic Mycoses (2 sources) Candidiasis of skin; Translations: [Candidiasis of skin and nail] Episodic Nonspecific chest pain (8 sources) Chest pain; Translations: [Chest pain, unspecified] Onset: 06-05-20 23 08-15-2021 Episodic Osteoarthritis (20 sources) Arthritis of right acromioclavicular joint; Translations: [Primary osteoarthritis, right shoulder] Onset: 09-29-20 20 09-29-2020 Chronic Other acquired deformities (5 sources) Contracture, right ankle; Translations: [CONTRACTURE RIGHT ANKLE] Onset: 11-03-20 Chronic Other aftercare (1 source) Other [facility] (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; Translations: [OTH INTERMEDIATE CURRENT DRUG THERAPY] Onset: 03-08-20 Episodic Other connective tissue disease (5 sources) Pain in right foot; Translations: [PAIN IN RIGHT FOOT] Onset: 12-02-19 Episodic Other disorders of stomach and duodenum (2 sources) Pylorospasm; Translations: [Pylorospasm, not elsewhere classified] Episodic Other disorders of stomach and duodenum (2 sources) Nonulcer dyspepsia; Translations: [Functional dyspepsia] Episodic Other gastrointestinal disorders (1 source) Ileostomy present; Translations: [Encounter for attention to ileostomy] Chronic Other gastrointestinal disorders (20 sources) Chronic idiopathic constipation; Translations: [Chronic idiopathic constipation] Onset: 03-15-20 Chronic Other gastrointestinal disorders (20 sources) Irritable bowel syndrome; Translations: [Irritable bowel syndrome without diarrhea] Chronic Other gastrointestinal disorders (1 source) Chronic idiopathic constipation; Translations: [Chronic idiopathic constipation] Onset: 03-15-20 Chronic Other gastrointestinal disorders (1 source) Diarrhea; Translations: [Intestinal malabsorption, unspecified] Chronic Other gastrointestinal disorders (20 sources) Esophageal dysphagia; Translations: [Other dysphagia] 10-08-2020 Episodic Other gastrointestinal disorders (20 sources) Constipation; Translations: [Constipation, unspecified] Episodic Other gastrointestinal disorders (20 sources) Abdominal bloating; Translations: [Abdominal distension (gaseous)] Episodic Other gastrointestinal disorders (20 sources) Flatulence; Translations: [Gas] Episodic Other gastrointestinal disorders (20 sources) Dysphagia; Translations: [Dysphagia, unspecified] Episodic Other gastrointestinal disorders (2 sources) Motility disorder of large intestine; Translations: [Functional intestinal disorder, unspecified] Episodic Other gastrointestinal disorders (1 source) Disorder of gastrointestinal tract; Translations: [Other specified diseases of the digestive system] Episodic Other gastrointestinal disorders (2 sources) Constipation, unspecified; Translations: [Constipation, unspecified] Onset: 07-25-20 Episodic Other hematologic conditions (3 sources) Raised cardiac enzyme or marker; Translations: [Other abnormal blood chemistry] Episodic Other hereditary and degenerative nervous system conditions (2 sources) Restless legs syndrome; Translations: [Restless legs syndrome] Onset: 08-01-20 Chronic Other infections; including parasitic (20 sources) Personal history of other infectious and parasitic diseases; Translations: [History of 2019 novel coronavirus disease (COVID-19)] 10-15-2021 Episodic Other lower respiratory disease (20 sources) Dyspnea; Translations: [Shortness of breath] 08-15-2021 Episodic Other nervous system disorders (20 sources) Chronic pain; Translations: [Other chronic pain] Chronic Other nervous system disorders (12 sources) Other chronic pain; Translations: [Other chronic pain G89.29] Onset: 07-28-20 Resolved : 05-26-20 Chronic Other non-traumatic joint disorders (5 sources) Pain in right ankle and joints of right foot; Translations: [PAIN IN RIGHT ANKLE] Onset: 10-24-20 Episodic Other nutritional; endocrine; and metabolic disorders (20 sources) Obese class I; Translations: [Obesity, unspecified] 10-08-2020 Chronic Other nutritional; endocrine; and metabolic disorders (20 sources) Body mass index 30+ - obesity; Translations: [Body mass index (BMI) 31.0-31.9, adult] Chronic Other nutritional; endocrine; and metabolic disorders (20 sources) Body mass index 25-29 - overweight; Translations: [Body mass index (BMI) 28.0-28.9, adult] Episodic Other nutritional; endocrine; and metabolic disorders (3 sources) Overweight in adulthood with body mass index of 25 or more but less than 30; Translations: [Overweight] Episodic Other upper respiratory disease (16 sources) Sinusitis; Translations: [Allergic rhinitis, unspecified] Chronic Other upper respiratory disease (1 source) Allergic rhinitis, unspecified Onset: 05-10-20 Resolved : 05-10-20 Chronic Other upper respiratory infections (4 sources) Upper respiratory infection; Translations: [Acute upper respiratory infection, unspecified] 09-24-2017 Episodic Personality disorders (2 sources) Borderline personality disorder; Translations: [Borderline personality disorder] Onset: 11-16-19 Chronic Residual codes; unclassified (20 sources) Obstructive sleep apnea syndrome; Translations: [Obstructive sleep apnea (adult) (pediatric)] Onset: 11-21-19 Chronic Residual codes; unclassified (1 source) Obstructive sleep apnea (adult) (pediatric); Translations: [CHUCKIE (obstructive sleep apnea)] Onset: 11-21-19 Chronic Residual codes; unclassified (2 sources) Postoperative state; Translations: [Other specified postprocedural states] Episodic Residual codes; unclassified (3 sources) Pain, unspecified Episodic Residual codes; unclassified (1 source) Acquired absence of both cervix and uterus; Translations: [ACQUIRED ABSENCE BOTH CERVIX AND UTERUS] Onset: 03-08-20 Episodic Spondylosis; intervertebral disc disorders; other back problems (20 sources) Degeneration of cervical intervertebral disc; Translations: [Other cervical disc degeneration, unspecified cervical region] Onset: 07-28-20 Resolved : 05-26-20 Chronic Spondylosis; intervertebral disc disorders; other back problems (3 sources) Low back pain; Translations: [Cervicalgia] Onset: 07-28-20 Resolved : 07-28-20 Episodic Unclassified (1 source) PERSONAL HISTORY OF COVID-19; Translations: [PERSONAL HISTORY OF COVID-19] Onset: 03-08-20 Unclassified (3 sources) LOW BACK PAIN, UNSPECIFIED; Translations: [LOW BACK PAIN, UNSPECIFIED] Onset: 02-22-20 Unclassified (1 source) CONTACT W/AND (SUSP) EXPOS COVID-19; Translations: [CONTACT W/AND (SUSP) EXPOS COVID-19] Onset: 10-23-20 Unclassified (1 source) Posterior tibial tendinitis, right leg; Translations: [Posterior tibial tendinitis, right leg] Onset: 03-17-20 Unclassified (1 source) Pain in right shoulder; Translations: [Pain in right shoulder] Onset: 10-14-20 Unclassified (2 sources) Telehealth Audio/video Visit; Translations: [Telehealth Audio/video Visit] Onset: 11-18-19 Urinary tract infections (20 sources) Urinary tract infectious disease; Translations: [Urinary tract infection, site not specified] Onset: 10-23-2002-18-2020 Episodic Viral infection (4 sources) Disease caused by 2019-nCoV; Translations: [COVID-19] 08-15-2021 Episodic Past or Other Problems Problem Classification Problem Date Documented Da te Episodic/Chronic Abdominal pain (20 sources) Generalized abdominal pain; Translations: [Generalized abdominal pain] Onset: 10-20-2022 Episodic Acquired foot deformities (6 sources) Valgus deformity, not elsewhere classified, right ankle; Translations: [Varus deformity, not elsewhere classified, right ankle] Onset: 09-28-2022 Episodic Allergic reactions (1 source) Unspecified contact dermatitis, unspecified cause; Translations: [Contact dermatitis, unspecified contact dermatitis type, unspecified trigger L25.9] Onset: 08-19-2021 Resolved: 08-19-2021 Episodic Complications of surgical procedures or medical care (4 sources) Infection following a procedure, other surgical site, initial encounter; Translations: [INFECT FOL PROC OTH SURG SITE INIT] Onset: 04-17-2022 Episodic Immunizations and screening for infectious disease (1 source) Contact with and (suspected) exposure to other viral communicable diseases; Translations: [Contact with and (suspected) exposure to other viral communicable diseases Z20.828] Onset: 08-13-2021 Resolved: 08-13-2021 Episodic Nausea and vomiting (20 sources) Nausea and vomiting; Translations: [Nausea with vomiting, unspecified] Onset: 05-10-2022 Resolved: 05-10-2022 Episodic Other aftercare (20 sources) Surgical follow-up; Translations: [Encounter for follow-up examination after completed treatment for conditions other than malignant neoplasm] Onset: 01-18-2022 Episodic Other connective tissue disease (20 sources) Pelvic floor dysfunction; Translations: [Other specified disorders of muscle] Onset: 12-24-2021 Episodic Other connective tissue disease (20 sources) Impingement syndrome of right shoulder region; Translations: [Impingement syndrome of right shoulder] Onset: 09-29-2020 09-29-2020 Episodic Other connective tissue disease (20 sources) Non-traumatic partial tear of right rotator cuff; Translations: [Incomplete rotator cuff tear or rupture of right shoulder, not specified as traumatic] Onset: 09-29-2020 09-29-2020 Episodic Other connective tissue disease (1 source) Posterior tibial tendinitis, right leg; Translations: [POSTERIOR TIBIAL TENDINITIS RT LEG] Onset: 11-03-2022 Episodic Other connective tissue disease (1 source) Spontaneous rupture of other tendons, right ankle and foot; Translations: [SPONT RUPTURE OTH TEND RT ANK FOOT] Onset: 11-03-2022 Episodic Other connective tissue disease (1 source) Plantar fascial fibromatosis; Translations: [PLANTAR FASCIAL FIBROMATOSIS] Onset: 11-03-2022 Episodic Other connective tissue disease (1 source) Other specified disorders of muscle; Translations: [Pelvic floor dysfunction] Onset: 12-24-2021 Episodic Other disorders of stomach and duodenum (20 sources) Gastroparesis syndrome; Translations: [Gastroparesis] Onset: 05-31-2023 10-08-2020 Episodic Other disorders of stomach and duodenum (4 sources) Gastroparesis; Translations: [Gastroparesis] Onset: 10-08-2020 Episodic Other gastrointestinal disorders (20 sources) Chronic constipation; Translations: [Other constipation] Onset: 03-28-2022 04-05-2022 Episodic Other gastrointestinal disorders (2 sources) Diarrhea, unspecified; Translations: [Diarrhea, unspecified] Onset: 05-31-2023 Episodic Other nervous system disorders (20 sources) Incoordination; Translations: [Unspecified lack of coordination] Onset: 01-18-2022 Episodic Other nervous system disorders (4 sources) Other acute postprocedural pain; Translations: [OTHER ACUTE POSTPROCEDURAL PAIN] Onset: 10-19-2022 Episodic Other non-traumatic joint disorders (3 sources) Pain in unspecified shoulder; Translations: [Pain in unspecified shoulder] Onset: 09-22-2022 Episodic Other non-traumatic joint disorders (3 sources) Pain in unspecified knee; Translations: [Pain in unspecified knee] Onset: 09-22-2022 Episodic Other non-traumatic joint disorders (1 source) Other instability, right ankle; Translations: [OTHER INSTABILITY RIGHT ANKLE] Onset: 11-03-2022 Episodic Other non-traumatic joint disorders (1 source) Other specified joint disorders, right ankle and foot; Translations: [OTHER SPEC JOINT D/O RT ANKLE FOOT] Onset: 11-03-2022 Episodic Residual codes; unclassified (20 sources) History of arthroscopic procedure on shoulder; Translations: [Other specified postprocedural states] Onset: 01-22-2021 01-22-2021 Episodic Residual codes; unclassified (20 sources) Disturbance in sleep behavior; Translations: [Sleep disorder, unspecified] Onset: 08-04-2021 08-04-2021 Episodic Residual codes; unclassified (1 source) Acquired absence of other specified parts of digestive tract; Translations: [ACQ ABSENCE OTH PART DIGESTV TRACT] Onset: 11-03-2022 Episodic Skin and subcutaneous tissue infections (1 source) Cellulitis of abdominal wall; Translations: [CELLULITIS OF ABDOMINAL WALL] Onset: 04-19-2022 Episodic Sprains and strains (1 source) Strain of muscle(s) and tendon(s) of peroneal muscle group at lower leg level, right leg, subsequent encounter; Translations: [STRAIN M AND T PERONEAL LOW RT LEG SUBS] Onset: 11-03-2022 Episodic Unclassified (1 source) Other low back pain M54.59 Onset: 03-15-2022 Resolved: 03-15-2022 Unclassified (3 sources) Never smoked tobacco; Translations: [Never a smoker] Unclassified (1 source) Contact with and (suspected) exposure to covid-19 Z20.822 Onset: 05-10-2022 Resolved: 05-10-2022 Unclassified (1 source) LOW BACK PAIN, UNSPECIFIED; Translations: [LOW BACK PAIN, UNSPECIFIED] Onset: 02-19-2023 Results Test Name Value Interpretation Reference Range Facil ity Documentationon 10-12-2023 Documentation [id number] Darrian Leal 1970 F Date Provider Department Center 10/12/2023 GIANA [facility]AMES [facility] Gerardo Heal No family history on file Normal [facility] CNOVon 10-10-2023 CNOV Office Visit (SHERON ) MARY LEAL ([id number]) 1970 F Date Time Provider Department 10/10/23 2:30 PM PAM WANG During your visit today, we recorded the following information about you: Blood pressure 102/60 Pam Wang MD 10/12/2023 9:42 AM Signed Female Pelvic Medicine AND Reconstructive Surgery Follow-Up Mary Leal is a 53 year old female, who presents for a follow-up of urinary urgency, urinary frequency. VV w/ Dr. Wang 08/07/23 Impression: Mary Leal is a 53 year old female s/p Anterior colporrhaphy, Posterior colporrhaphy, Placement of retropubic midurethral sling, Perineorrhaphy and Cystoscopy now with bothersome urinary retention, urgency, frequency and nocturia. Discussed with patient that given voiding dysfunction and history of MUS and colectomy, would recommend flurourodynamics and 3day voiding diary. Patient has had no improvement in symptoms with life style changes, OAB medications and intradetrusor Botox. We discussed neuromodulation for urinary issues. SNS is used to manage both OAB with leak and fecal incontinence as well as urinary retention. Discussed that SNS is now MRI-compatible although she would need to turn off device when she had MRI. Also discussed the need for two anesthetic procedures in the OR or PNE in the office followed by SNS in the OR. Pt would like to try PNE in the office. Will schedule and will plan for flurourodynamics and 3-day voiding diary before. Plan: Schedule flurourodynamics Fill out 3-day voiding diary Will schedule PNE aftre flurourodynamics and 3-day voiding diary History since last visit: Patient had VUDS with Dr. Jairon Vasavada which showed DO and smaller functional capacity bladder, elevated Pdet to void and lower flow. Patient was counseled about mid-urethral sling incision versus PNE. Urodynamics was unclear whether there was obvious SOTO and so presents today for cystoscopy. Of note pt also complaining of vaginal itching after recent antibiotics for UTI. Urodynamics Interpretation: A 7 Fr catheter was placed in a sterile fashion and a separate rectal catheter was placed for intra-abdominal pressure measurements. The study was then run to yield results as follows: Uroflow: Continuous and large voided volume PVR: Low CMG: The FS and FD: normal range Bladder compliance: normal Detrusor overactivity: phasic Stress incontinence:Nocm of H20 Total tolerated volume was 200+ Pressure Flow phase: Pdet max with flow was: elevated Abdominal strain:Yes EMG: DESD or abnormal patterns noted: No Impression: video: no reflux, BN open at rest, smooth bladder imp DO and smaller functional capacity bladder elevated Pdet to void lower flow I have confirmed and edited as necessary, the PFSH obtained by others. Pam Wang MD Garage Laborer offered: Patient declines. OBJECTIVE: BP 102/60 General: Well appearing, alert, in no acute distress, well-hydrated, well nourished. Abdomen: Abdomen soft, non-tender Pelvic: Ext. Genitalia: No lesions or other abnormalities Vagina: normal epithelium, scant amount of discharge noted Impression: Mary Leal is a 53 year old female s/p Anterior colporrhaphy, Posterior colporrhaphy, Placement of retropubic midurethral sling, Perineorrhaphy and Cystoscopy now with bothersome urinary retention, urgency, frequency and nocturia. Had discussion with patient regarding mid-urethral sling excision versus SNM. Patient reports urinary urgency, frequency and nocturia prior to MUS. On cystoscopy patent had normal bladder with no trabeculations, areas or erythema and normal urethra with easy insertion of cystoscopy. We discussed risk and benefits of sling excision including recurrence of symptoms and possible (but not guaranteed) improvement of urinary symptoms. We also discussed possible option of proceeding with PNE first to see if this improves voiding symptoms. Patient very hesitant to excise sling as she does not want BERT symptoms to return. Given that patient has low capacity bladder and DO on VUDS and was able to mostly empty the bladder (filled to 220cc and PVR 69cc), we will proceed with PNE and see if symptoms improve Plan: We discussed Mary's surgical options moving forward --- sling excision or SNS. Prior to SNS, will need PNE in the office and 3-day voiding diary beforehand. Mary would like to move forward with PNE. [employer] packet given to patient today to review. My scheduling team will reach out to Mary with a date. Pt endorses burning and itching of her vagina. Terazol (Apply vaginally daily at bedtime for 7 days ) sent to Mary's pharmacy today. Pam Wang MD I spent a total of 20 minutes on the date of the service which included preparing to see the patient, [id number] patient care, completing clinical (more content not included)... Normal [facility] XR CHEST 2 VIEWSon 3 XR CHEST 2 VIEWS FINDINGS: Comparison, June 09, 2021. Intervertebral disc space device again identified lower cervical spine. Cardiopericardial silhouette normal. Pulmonary vasculature normal. Lungs clear. IMPRESSION: Impression: No acute cardiopulmonary disease. ELECTRONICALLY SIGNED BY: Rigo Strauss MD Normal Not Available Orders Onlyon 09-19-2023 Orders Only [id number] Darrian Leal 1970 F Date Provider Department Center 09/19/2023 [facility] Gerardo Heal No family history on file Normal [facility] CNPNon 09-12-2023 MARIAN Telephone (WHQ) MARY LEAL ([id number]) 1970 F Date Time Provider Department 09/12/23 PAM WANG During your visit today, we recorded the following information about you: Guido Ocampo 09/12/2023 9:02 AM Signed Patient called in wanting to go over yesterday's procedure appointment with Dr. Stephen. Patient of Dr. Wang. Lex Vieyra RN 09/12/2023 11:53 AM Signed Visit 09/11/23 with Jairon Lai MD for Urodynamic study: Impression: video: no reflux, BN open at rest, smooth bladder imp DO and smaller functional capacity bladder elevated Pdet to void lower flow Jairon Lai MD Urodynamics Interpretation Uroflow: curve normal in shape, voided volume is 95.2 cc, Q max is 14.4, PVR 0 Filling phase: Normal compliance, low capacity with first desire and a strong desire at 20 cc, able to fill to 220 cc, detrusor overactivity is present. No leakage noted. Initial attempt to void was at 81 cc with inability to void but there was rise in Pdet to about 20. Voiding phase: Pdet max of 53, Q max of 12, PVR 69 EMG: No abnormal activity noted Assessment: Small capacity bladder with evidence of DO. Elevated detrusor pressure with voiding and low flow consistent with obstruction Will discuss case with referring provider, may benefit from sling incision +/- discussion of SNM Last VV 08/07/[address] Wang: Impression: Mary Leal is a 53 year old female s/p Anterior colporrhaphy, Posterior colporrhaphy, Placement of retropubic midurethral sling, Perineorrhaphy and Cystoscopy now with bothersome urinary retention, urgency, frequency and nocturia. Discussed with patient that given voiding dysfunction and history of MUS and colectomy, would recommend flurourodynamics and 3day voiding diary. Patient has had no improvement in symptoms with life style changes, OAB medications and intradetrusor Botox. We discussed neuromodulation for urinary issues. SNS is used to manage both OAB with leak and fecal incontinence as well as urinary retention. Discussed that SNS is now MRI-compatible although she would need to turn off device when she had MRI. Also discussed the need for two anesthetic procedures in the OR or PNE in the office followed by SNS in the OR. Pt would like to try PNE in the office. Will schedule and will plan for flurourodynamics and 3-day voiding diary before. Plan: 1. Schedule flurourodynamics 2. Fill out 3-day voiding diary 3. Will schedule PNE aftre flurourodynamics and 3-day voiding diary This was a Video visit, including two-way audio and video communication, in lieu of an in-person visit. The patient provided verbal consent to participate in the telehealth visit. I spent a total of 30 minutes on the date of the service which included preparing to see the patient, [id number] patient care, completing clinical documentation, obtaining and/or reviewing separately obtained history, counseling and educating the patient/family/caregiver, ordering medications, tests, or procedures, and communicating with other HCPs (not separately reported). MD Mary Delcid states she had her procedure yesterday and the doctor mentioned she should have a Cystoscopy. She inquires what Dr. Wang recommends and next steps. States she will await to hear back regarding plan. Informed her message is being forwarded to Dr. Wang for review. Please review/advise MAKI Ronquillo Shannon, MD 09/12/2023 1:12 PM Signed OUTGOING TELEPHONE CALL Telephone call to discuss results UDS results Discussed that would recommend cystoscopy and then will review option of MUS sling incision versus PNE/Interstim. Office will call to schedule cystoscopy. Urogynecology [facility] Main provided: Pam Wang Staff Physician, Department of Urogynecology and Pelvic Floor Disorders Allergies As of Date: 09/12/2023 Noted Allergy Reaction RISPERIDONE 07/27/2021 5 - Intolerance Comments: Breast discharge POISON LAITH EXTRACT 04/06/2023 2 - Rash Date Reviewed: 09/11/2023 Reviewed by: Jenifer Barnard RN - Fully Assessed Reason for Visit: Patient Update [1234] Primary Visit Diagnosis:Voiding dysfunction [N39.8] Other Visit Diagnosis:History of suburethral sling procedure [Z98.890] Order(s):CYSTOSCOPY [facility] [[id number]] Order #: [id number] Prescriptions as of 09/12/2023 - atenolol (TENORMIN) 25 mg tablet Take 1 tablet by mouth every afternoon. - AJOVY AUTOINJECTOR 225 mg/1.5 mL auto-injector inject 1 AND 1/2 milliliters subcutaneously every 28 DAYS - Dexlansoprazole 60 mg CpDM take 1 capsule by mouth before breakfast - sucralfate (CARAFATE) 100 mg/mL suspension Take 10 mL by mouth twice daily. - Cholecalciferol, Vitamin D3, 25 mcg (1,000 unit) cap Take 1,000 Units by mouth once daily. - cyanocobalamin (VITAMIN B-12) 1,000 mcg tab Take 1,000 (more content not included)... Normal [facility] CNOVon 09-11-2023 CNOV Office Visit (UROSMN ) MARY LEAL ([id number]) 1970 F Date Time Provider Department 09/11/23 11:00 AM JAIRON LAI UROSMN During your visit today, we recorded the following information about you: Phil Beckford MD 09/11/2023 1:18 PM Signed Urodynamics Interpretation Uroflow: curve normal in shape, voided volume is 95.2 cc, Q max is 14.4, PVR 0 Filling phase: Normal compliance, low capacity with first desire and a strong desire at 20 cc, able to fill to 220 cc, detrusor overactivity is present. No leakage noted. Initial attempt to void was at 81 cc with inability to void but there was rise in Pdet to about 20. Voiding phase: Pdet max of 53, Q max of 12, PVR 69 EMG: No abnormal activity noted Assessment: Small capacity bladder with evidence of DO. Elevated detrusor pressure with voiding and low flow consistent with obstruction Will discuss case with referring provider, may benefit from sling incision +/- discussion of Jenifer Barry RN 09/11/2023 11:37 AM Signed [facility] URODYNAMICS LAB URODYNAMIC PROCEDURE NOTE ID Verified by: Jenifer Barnard RN with name and birthdate. Procedure instructions reviewed with patient prior to procedure: Yes Currently experiencing pain: No 0 on a scale of 0 to 10 on a scale of 0-10. Does the patient have any concerns about safety in the home/falls?: Not at risk for falls Has the patient had 2 falls in the last year or 1 fall with injury or currently using assistive device (walker, cane, wheelchair, crutches): No What interventions were put in place to prevent falls during this visit: Door to room left open Offered assistance with transfers/clothing Has patient had any history of Mitral Valve prolapse: No MEDS:NONE Has patient had any history of prosthetics: No MEDS: NONE Latex allergy: No Iodine allergy: No Females- Is patient : No Garage Laborer offered:Patient declines B/O UA: YES DIP: UROFLOWMETRY Voided vol: 95 ml. Flow time: 15 sec. Q max: 14 ml/sec. Q av ml/sec. PVR: drops ml. CYSTOMETROGRAM Subtracted:Yes Video: Yes EMG: Yes First Sensation: No cool, filling, or pressure felt ml Strong desire: 20 ml Max. capacity: 220 ml Maximum filling detrusor pressure 10 cm of water Detrusor overactivity associated with urge: Yes Detrusor overactivity associated with leakage: No Was patient assessed for VLPP / UPP No Leaks urine with valsalva /coughs: No PRESSURE-FLOW VOIDING STUDY Did patient void with catheters in place Yes Voided: 153 ml voluntary Max Voiding Detrusor Pressure 53 cm H2O P det @ Q max (Max Flow): 32 cm H2O Maximum Flow Rate: 12 ml/sec Average Flow Rate: 4 ml/sec Fluro time: see xray dept min Vaginal Packing for prolapse support: No Comments: Filled to capacity, multiple c/o urge with small rise in pdet. Permit to void- voluntary void given. STUDY DETAILS: Was a uroflow done at some point during the study: Yes Was a cystometrogram performed: Yes Was a UPP/VLPP done: Yes Was an EMG done: Yes Was an intraabdominal pressure recorded with urethral catheter in: Yes Where were pressure catheters placed: Bladder and Rectum Was contrast instilled for radiologic evaluation: Yes, Cysto-conray 250 ccs utilized Please use Urodynamic Graph. Pt given verbal home going instructions. Pt states an understanding of instructions given. Jairon Lai MD 09/11/2023 1:18 PM Signed [facility]IC[facility] RECONSTRUCTIVE SURGERY PHYSICIAN INTERPRETATION: Urodynamics Interpretation: A 7 Fr catheter was placed in a sterile fashion and a separate rectal catheter was placed for intra-abdominal pressure measurements. The study was then run to yield results as follows: Uroflow: Continuous and large voided volume PVR: Low CMG: The FS and FD: normal range Bladder compliance: normal Detrusor overactivity: phasic Stress incontinence:Nocm of H20 Total tolerated volume was 200+ Pressure Flow phase: Pdet max with flow was: elevated Abdominal strain:Yes EMG: DESD or abnormal patterns noted: No Impression: video: no reflux, BN open at rest, smooth bladder imp DO and smaller functional capacity bladder elevated Pdet to void lower flow Jairon Lai MD Referring Provider: PAM WANG [[id number]] Allergies As of Date: 09/11/2023 Noted Allergy Reaction RISPERIDONE 07/27/2021 5 - Intolerance Comments: Breast discharge POISON LAITH EXTRACT 04/06/2023 2 - Rash Date Reviewed: 09/11/2023 Reviewed by: Jenifer Barnard RN - Fully Assessed Reason for Visit: Consult [173] Primary Visit Diagnosis:Urinary urgency [R39.15] Prescriptions as of 09/11/2023 - atenolol (TENORMIN) 25 mg tablet Take 1 tablet by mouth every afternoon. - AJOVY AUTOINJECTOR 225 mg/1.5 mL auto-injector inject 1 AND 1/2 milliliters subcut (more content not included)... Normal [facility] Orders Onlyon 09-01-2023 Orders Only [id number] Darrian Leal 1970 Date Provider Department [place] 09/01/2023 167GIANA JARQUIN [facility] Gerardo Heal No family history on file Normal [facility] Telemedici neon 08-23-2023 Behavioral Health Telemedicine [id number] Mary Leal 1970 Date Provider Department [place] 08/23/2023 167-GIANA MORALES [facility] Gerardo Heal No family history on file Level of Service:10917 [place] OFFICE/OUTPATIENT ESTABLISHED MOD MDM 30-39 MIN Normal [facility] BASIC METABOLIC PANELon 10-0 Anion gap [Moles/Vol] 1 mmol/L Low 8-12 [facility] Comment on above: Performed By: #### 4 [id number], [id number], [id number], [id number] #### [address] [address] Calcium [Mass/Vol] 9.2 mg/dL Normal 8.4-10.4 [facility] Comment on above: Performed By: #### 4 [id number], [id number], [id number], [id number] #### [place] [address] [place] [address] [facility] Chloride [Moles/Vol] 105 mmol/L Normal 96-109 [facility] Comment on above: Performed By: #### 4 [id number], [id number], [id number], [id number] #### [address] [address] CO2 [Moles/Vol] 32 mmol/L High 22-30 [facility] Comment on above: Performed By: #### 4 [id number], [id number], [id number], [id number] #### [place] [address] [place] [address] Creatinine [Mass/Vol] 0.67 mg/dL Normal 0.52-1.04 [facility] Comment on above: Performed By: #### 4 [id number], [id number], [id number], [id number] #### [facility] [address] [place] [address] GLOMERULAR FILTRATION RATE M L/MIN/1.73 SQ M.PREDICTED >90.0 Normal >=60.0 [facility] Comment on above: Result Comment: eGFR calculation based on the Chronic Kidney Disease Epidemiology Collaboration (CKD-EPI) equation refit without adjustment for race. Categories in Chronic Kidney Disease (CKD) Category: GFR(mL/min/1.73m^2) Interpretation: G1* 90 or greater Normal or high G2* 60-89 Mild decrease G3a 45-59 Mild to moderate decrease G3b 30-44 Moderate to severe decrease G4 15-29 Severe decrease G5 14 or less Kidney failure *G1&G2: In the absence of evidence of kidney damage, neither GFR category G1 nor G2 fulfill the criteria for CKD Kidney Int Suppl.2013;3:1-150 Performed By: #### 4 [id number], [id number], [id number], [id number] #### [address] [place] [address] [place] Glucose [Mass/Vol] 104 mg/dL High 65-100 [facility] Comment on above: Performed By: #### 4 [id number], [id number], [id number], [id number] #### [address] [place] [address] [facility] Potassium [Moles/Vol] 4.6 mmol/L Normal 3.6-5.1 [facility] Comment on above: Performed By: #### 4 [id number], [id number], [id number], [id number] #### [facility] [address] [place] [address] [facility] Sodium [Moles/Vol] 138 mmol/L Normal 135-147 [facility] Comment on above: Performed By: #### 4 [id number], [id number], [id number], [id number] #### [address] [place] [address] [facility] Urea nitrogen [Mass/Vol] 16 mg/dL Normal 8-26 [facility] Comment on above: Performed By: #### 4 [id number], [id number], [id number], [id number] #### [facility] [address] [place] [address] [facility] Basic metabolic panel aka Ch em 08-12-2023 Anion gap [Moles/Vol] 1 mmol/L Low 8 - 12 mmol/L [facility] Calcium [Mass/Vol] 9.2 mg/dL 8.4 - 10.4 mg/dL [facility] Calcium hydrogen phosphate dihydrate crystals LM Ql (Urine sed) 16 mg/dL 8 - 26 mg/dL [facility] Chloride [Moles/Vol] 105 mmol/L 96 - 109 mmol/L [facility] CO2 (BldMV) [Moles/Vol] 32 mmol/L High 22 - 30 mmol /L [facility] Creatinine [Mass/Vol] 0.67 mg/dL 0.52 - 1.04 mg /dL [facility] GFR/1.73 sq M.predicted MDRD (S/P/Bld) [Vol rate/Area] - PINF [facility] Comment on above: eGFR calculation bas ed on the Chronic Kidney Disease Epidemiology Collaboration (CKD-EPI) equation refit without adjustment for race. Categories in Chronic Kidney Disease (CKD) Category: GFR(mL/min/1.73m^2) Interpretation: G1* 90 or greater Normal or high G2* 60-89 Mild decrease G3a 45-59 Mild to moderate decrease G3b 30-44 Moderate to severe decrease G4 15-29 Severe decrease G5 14 or less Kidney failure *G1&G2: In the absence of evidence of kidney damage, neither GFR category G1 nor G2 fulfill the criteria for CKD Kidney Int Suppl.2013;3:1-150 Glucose [Mass/Vol] 104 mg/dL High 65 - 100 mg/dL [facility] Interpretation and review of laboratory results Abnormal [facility] Potassium [Moles/Vol] 4.6 mmol/L 3.6 - 5.1 mmol /L [facility] Sodium [Moles/Vol] 138 mmol/L 135 - 147 mmol/L [facility] CBC AND DIFFERENTIALon 08-12 ABSOLUTE BASOPHIL 0.0 x10*3/uL Normal 0.0-0.1 [facility] Comment on above: Performed By: #### 4 [id number] #### [address] ABSOLUTE EOSINOPHIL 0.1 x10*3/uL Normal 0.1-0.3 [facility] Comment on above: Performed By: #### 4 [id number] #### [address] ABSOLUTE IMMATURE GRANULOCYTES 0.0 x10*3/uL Normal 0.0 -0.1 [facility] Comment on above: Performed By: #### 4 [id number] #### [address] ABSOLUTE LYMPH 1.6 x10*3/uL Normal 1.2-3.3 [facility] Comment on above: Performed By: #### 4 [id number] #### [address] ABSOLUTE MONO 0.3 x10*3/uL Normal 0.2-0.6 [facility] Comment on above: Performed By: #### 4 [id number] #### [address] ABSOLUTE NEUTROPHIL 3.1 x10*3/uL Normal 2.4-6.6 [facility] Comment on above: Performed By: #### 4 [id number] #### [address] Basophils/100 WBC (Bld) 0.8 % Normal G [facility] Comment on above: Performed By: #### 4 [id number] #### [address] Eosinophils/100 WBC (Bld) 2.7 % Normal [facility] Comment on above: Performed By: #### 4 [id number] #### [address] Erythrocyte distribution wid th (RBC) [Ratio] 13.0 % Normal 11.5-14.5 [facility] Comment on above: Performed By: #### 4 [id number] #### [address] Hematocrit (Bld) [Volume fraction] 37.5 % Normal 3 3.6-46.8 [facility] Comment on above: Performed By: #### 4 [id number] #### [address] Hemoglobin (Bld) [Mass/Vol] 11.8 g/dL Normal 11.7-15. 8 [facility] Comment on above: Performed By: #### 4 [id number] #### [address] Immature granulocytes/100 WBC (Bld) 0.4 % Normal [facility] Comment on above: Performed By: #### 4 [id number] #### [address] Lymphocytes/100 WBC (Bld) 31.5 % Normal [facility] Comment on above: Performed By: #### 4 [id number] #### [address] MCH (RBC) [Entitic mass] 26.5 pg Low 27.5-32.3 [facility] Comment on above: Performed By: #### 4 [id number] #### [address] MCHC (RBC) [Mass/Vol] 31.5 g/dL Normal 30.7-35.5 [facility] Comment on above: Performed By: #### 4 [id number] #### [address] MCV (RBC) [Entitic vol] 84.3 fL Normal 80.2-[address] [facility] Comment on above: Performed By: #### 4 [id number] #### [address] Monocytes/100 WBC (Bld) 5.4 % Normal [facility] Comment on above: Performed By: #### 4 [id number] #### [address] Neutrophils/100 WBC (Bld) 59.2 % Normal [facility] Comment on above: Performed By: #### 4 [id number] #### [address] NUCLEATED RED BLOOD CELLS AUTO 0.0 % Normal 0.0-1 .0 [facility] Comment on above: Performed By: #### 4 [id number] #### [address] PLATELET COUNT 299 x10*3/uL Normal 150-400 [facility] Comment on above: Performed By: #### 4 [id number] #### [address] RED BLOOD CELL COUNT 4.45 x10*6/uL Normal 3.60-5.20 [facility] Comment on above: Performed By: #### 4 [id number] #### [address] WHITE BLOOD CELLS 5.2 x10*3/uL Normal 4.3-10.3 [facility] Comment on above: Performed By: #### 4 [id number] #### [address] CBC with differentialOrdered By: Background Lab on 08-12-2023 Absolute Immature [facility]ulocytes [facility].0 [facility] Age [Time] 84.3 fL 80.2 - 99 fL [facility] Age [Time] 26.5 pg Low 27.5 - 32.3 pg [facility] Age [Time] 31.5 g/dL 30.7 - 35.5 g/dL [facility] B. burgdorferi IgM IB Ql (CSF) 31.5 % [facility] Basophils (Bld) [#/Vol] 0.0 10*3/uL [facility] Basophils/100 WBC (Body fld) 0.8 % [facility] Eosinophils (Bld) [#/Vol] 1.6 10*3/uL [facility] Eosinophils (Bld) [#/Vol] 0.3 10*3/uL [facility] Eosinophils (Bld) [#/Vol] 0.1 10*3/uL [facility] Eosinophils/100 WBC (Bld) 2.7 % [facility] Erythrocyte distribution width (RBC) [Ratio] 13.0 % 11.5 - 14.5 % [facility] Hematocrit (Bld) [Volume fraction] 37.5 % 33.6 - 46.8 % [facility] Hexanoylglycine (U) [Moles/Vol] 11.8 g/dL 11.7 - 15.8 g/dL [facility] Immature granulocytes/100 WB C (Bld) 0.4 % [facility] Interpretation and review of laboratory results Abnormal [facility]Care System Monocytes/100 WBC (Bld) 5.4 % G [facility] Neurotensin (P) [Mass/Vol] 59.2 % [facility] Neutrophils (Bld) [#/Vol] 3.1 10*3/uL [facility] Nucleated RBC/100 WBC (Bld) [Ratio] 0.0 % 0.0 - 1.0 % [facility] Platelets (Bld) [#/Vol] 299 10*3/uL [facility] RBC (Bld) [#/Vol] 4.45 10*6/uL [facility] WBC (Bld) [#/Vol] 5.2 10*3/uL [facility] s [facility] CT ABDOMEN PELVIS WITH IV CO NTRASTon 08-12-2023 CT ABDOMEN PELVIS WITH IV CONTRAST EXAMINATION: CT ABDOMEN PELVIS WITH IV CONTRAST, 08/12/2023 5:43 AM EDT HISTORY: Abdominal pain, acute, nonlocalized. COMPARISON: February 19, 2023 CT lumbar spine without contrast. TECHNIQUE: CT scan of the abdomen and pelvis was performed with IV contrast. CT dose reduction technique was used, including Automated Exposure Control. FINDINGS: The liver, gallbladder, spleen, pancreas, adrenal glands, and kidneys are within normal limits. The urinary bladder is unremarkable. The uterus has been removed. The ovaries are unremarkable. No abdominal aortic aneurysm is present. There is no lymphadenopathy. There has been a subtotal colectomy. There is no evidence of ileus or obstruction. No bowel wall thickening is evident. There is mild haziness within the mesentery of the upper pelvis which is unchanged. There is no peritoneal gas, fluid, or fluid collection. There is scarring in the inferior abdominal wall. There is no abdominal wall hematoma or hernia. No acute bone findings are seen. IMPRESSION: No acute findings. Ambulates to triage with C/O sudden epigastric gnawing, burning pain that woke her from sleep. Also reports wheezing. States nausea. Denies fever. 20 RAC Omni 300 100 ml Normal [facility] HEPATIC FUNCTION PANELon Albumin [Mass/Vol] 4.0 g/dL Normal 3.5-5.0 [facility] Comment on above: Performed By: #### 4 [id number], [id number], [id number], [id number] #### [address] ALK PHOS 104 U/L Normal 24-126 [facility] Comment on above: Performed By: #### 4 [id number], [id number], [id number], [id number] #### [facility] [address] [place] [address] [place] ALT [Catalytic activity/Vol] 50 U/L High 4-35 [facility] Comment on above: Performed By: #### 4 [id number], [id number], [id number], [id number] #### [facility] [address] [place] [address] [place] AST [Catalytic activity/Vol] 59 U/L High 3-47 [facility] Comment on above: Performed By: #### 4 [id number], [id number], [id number], [id number] #### [facility] [address] [place] [address] [place] Bilirubin [Mass/Vol] 0.1 mg/dL Low 0.2-1.6 [facility] Comment on above: Performed By: #### 4 [id number], [id number], [id number], [id number] #### [place] [address] Bilirubin.indirect [Mass/Vol] 0.1 mg/dL Normal <=0.5 [facility] Comment on above: Performed By: #### 4 [id number], [id number], [id number], [id number] #### [facility] [address] Protein [Mass/Vol] 6.6 g/dL Normal 6.3-8.2 [facility] Comment on above: Performed By: #### 4 [id number], [id number], [id number], [id number] #### [facility] [address] Hepatic Function Panelon Albumin (Syn fld) [Mass/Vol] 4.0 g/dL 3.5 - 5.0 g/dL [facility] Aldosterone (U) [Mass/Vol] 104 U/L 24 - 126 U/L [facility] ALT [Catalytic activity/Vol] 50 U/L High 4 - 35 U/L [facility] AST [Catalytic activity/Vol] 59 U/L High 3 - 47 U/L [facility] Bilirubin [Mass/Vol] 0.1 mg/dL Low 0.2 - 1.6 mg/dL [facility] Bilirubin.conjugated [Mass/Vol] 0.1 mg/dL NINF - 0.5 mg/dL [facility] Protein [Mass/Vol] 6.6 g/dL 6.3 - 8.2 g/dL [facility] LIPASEon 08-12-2023 Lipase [Catalytic activity/Vol] 11 U/L Low 23-3 00 [facility] Comment on above: Performed By: #### 4 [id number], [id number], [id number], [id number] #### [facility] [address] Lipaseon 08-12-2023 Lipase [Catalytic activity/Vol] 11 U/L Low 23 - 300 U/L [facility] No Panel Informationon 08-12 Extra Tube Hold for add-ons. [facility] Interpretation and review of laboratory results Abnormal [facility] POCT ED/FC/GSC Urine PregOrd ered By: Della Hays on 08-12-2023 Beta HCG ( test) Ql (U) Negative [facility] Interpretation and review of laboratory results Normal [facility] Recreation Program Coordinator Acceptable yes [facility] TROPONIN Ion 08-12-2023 Troponin I.cardiac [Mass/Vol] ng/mL Normal <=0.03 3 [facility] Comment on above: Result Comment: Nega tive: No detectable troponin-I. Performed By: #### 4 [id number] #### [place] [address] [place] TROPONIN I SERIESon 08-12-20 Troponin I.cardiac [Mass/Vol] ng/mL Normal <=0.03 3 [facility] Comment on above: Result Comment: Nega tive: No detectable troponin-I. Performed By: #### 4 [id number], [id number], [id number], [id number] #### [place] [address] [place] [address] [place] Troponin I (One time)on Interpretation and review of laboratory results Normal [facility] Troponin I.cardiac [Mass/Vol] ng/mL NINF - 0.033 ng/mL [facility] Comment on above: Negative: No detectable troponin-I. [facility] Troponin I - Series (X 3)on 08-12-2023 Interpretation and review of laboratory results Normal [facility] Troponin I.cardiac [Mass/Vol] ng/mL NINF - 0.033 ng/mL [facility] Comment on above: Negative: No detectable troponin-I. [facility] URINALYSIS WITH REFLEX CULTU REon 08-12-2023 Appearance (U) Clear Normal [facility] Comment on above: Performed By: #### 4 [id number] #### [place] [address] [place] [address] [place] BILIRUBIN UA Negative Normal Negative [facility] Comment on above: Performed By: #### 4 [id number] #### [place] [address] [place] [address] [place] Color (U) Yellow Normal [facility] Comment on above: Performed By: #### 4 [id number] #### [address] Glucose Ql (U) Negative Normal Negative [facility] Comment on above: Performed By: #### 4 [id number] #### [place] [address] [place] [address] Ketones Ql (U) Negative Normal Negative [facility] Comment on above: Performed By: #### 4 [id number] #### [place] [address] [place] [address] LEUKOESTERASE Negative Normal Negative [facility] Comment on above: Performed By: #### 4 [id number] #### [address] MUCOUS-URINE Occasional Normal [facility] Comment on above: Performed By: #### 4 [id number] #### [address] Nitrite Ql (U) Negative Normal Negative [facility] Comment on above: Performed By: #### 4 [id number] #### [address] OCCULT BLD Negative Normal Negative [facility] Comment on above: Performed By: #### 4 [id number] #### [address] PH, URINE 5.0 Normal [facility] Comment on above: Performed By: #### 4 [id number] #### [facility] [address] [place] [address] Protein Ql (U) Negative Normal Negative [facility] Comment on above: Performed By: #### 4 [id number] #### [facility] [address] [place] [address] [place] RBC LM.HPF (Urine sed) [#/Area] /[HPF] Normal <=5 [facility] Comment on above: Performed By: #### 4 [id number] #### [facility] [address] [place] [address] SPECIFIC GRAVITY, URINE 1.025 Normal G [facility] Comment on above: Performed By: #### 4 [id number] #### [place] [address] [place] SQUAMOUS EPI CELLS 51 /LPF Normal [facility] Comment on above: Performed By: #### 4 [id number] #### [place] [address] UROBILINOGEN UA Negative Normal <2.0 [facility] Comment on above: Performed By: #### 4 [id number] #### [place] [address] WBC LM.HPF (Urine sed) [#/Area] 2 /[HPF] Normal <=5 [facility] Comment on above: Performed By: #### 4 [id number] #### [place] [address] Urinalysis complete W Reflex Culture panel (U)on 08-12-2023 Acetone [Mass/Vol] Negative Negative [facility] Appearance (Body fld) Clear [facility] Bilirubin Ql (U) Negative Negative [facility] Color (Stone) Yellow [facility] G6PD (RBC) [Catalytic activity/Vol] Negative Negative [facility] Hemoglobin Ql (U) [facility] Leukocyte esterase Test stri p Ql (U) Negative Negative [facility] Mucor racemosus IgE Qn (S) Occasional /LPF [facility] Nitrite Test strip (U) [Mass/Vol] Negative [facility] pH (Migue fld) 5.[address] [facility] Protein (U) [Mass/Vol] Negative Negative [facility] [place] IgE Qn (S) Negative Negative [facility] Specific gravity (U) [Rel density] 1.025 [facility] Spherocytes LM Ql (Bld) 51 /LPF [facility] Urob[facility]ogen Qn (U) Negative NIN - 2.0 [facility] WBC (U) [#/Vol] 2 /uL [facility] 36on 08-02-2023 36 Call placed to alex spears to discuss how often she is taking Miralax. Patient is taking Miralax once daily as instructed. Per Alba Montague she was instructed that she can take it twice a day. Also advised patient that Alba Montague will be consulting with the physician who performed her procedure. Normal [facility] Orders Onlyon 08-02-2023 Orders Only [id number] Darrian Leal 1970 F Date Provider Department Center 08/02/2023 GIANA JAMES [facility] Gerardo Heal No family history on file [facility] CNOVon 07-31-2023 CNOV Office Visit (SHERON ) MARY LEAL ([id number]) 1970 F Date Time Provider Department 07/31/23 2:30 PM NELSY CHÁVEZ During your visit today, we recorded the following information about you: Pulse Blood pressure Weight Height 76/minute 136/96 69.9 kg 1.626 m Nelsy Chávez, DANN.AUTOMOTIVE SERVICE TECHNICIAN 07/31/2023 5:35 PM Signed Female Pelvic Medicine AND Reconstructive Surgery Follow-Up Mary Leal is a 53 year old female, who presents for a follow-up of Laparoscopic proctopexy and diverting loop ileostomy (Dr. Obrien) with concurrent Anterior olporrhaphy, Posterior colporrhaphy, Placement of retropubic midurethral sling, Perineorrhaphy (Dr. Wang) 12/24/2021. History since last visit: Has had issues with bladder emptying for several months. Had foot surgery in May, couldn't void after. Started Myrbetriq early July by OSH provider for bladder spasms, has had +constipation since starting medication. She is only able to fully empty with voids 1x per day; has a lot of frequency and urgency, but cannot go. Urinary Incontinence: no Voiding Dysfunction: yes, retaining most of the day except for one void each day Urinary Frequency: yes, every 1.5 hours at night Urinary Urgency: yes, sometimes Prolapse Symptoms: no Defecatory Dysfunction: yes, had scopes done last Monday; nothing found aside from gastritis and gastroparesis Fecal Incontinence: no Abnormal Bleeding: yes, from rectum, somewhat new Pain: no Abnormal Vaginal Discharge: no ESL PROFESSOR 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 She has no history of an abnormal mammogram with cysts on US LMP: No LMP recorded. Patient has had a hysterectomy.; Menopause 3 years ago; hysterectomy in 2015: Menstrual history: NA; Deliveries: I have confirmed and edited as necessary, the PFSH obtained by others. Nelsy Chávez APRN.AUTOMOTIVE SERVICE TECHNICIAN [employer] Laborer offered: Patient declines. OBJECTIVE: There were no vitals taken for this visit. General: Well appearing, alert, in no acute distress, well-hydrated, well nourished. and tearful at times Abdomen: Abdomen soft, non-tender Pelvic: Ext. Genitalia: No lesions or other abnormalities Vagina: normal epithelium POP-Q: Prolapse Noted: No Cervix: surgically absent Urethra: Normal Bimanual: No tenderness, No masses, no bladder pain Rectovaginal: Deferred UA results: normal Bladder scan: Nurse performed and PVR 0 mL. Voided volume not measured. Impression: Mary Leal is a 53 year old female with sensation of incomplete bladder emptying, urinary urgency, urinary frequency, nocturia, constipation. Discussed her symptoms and today's exam in detail. She has a complex health and surgical history. Of note, under a lot of stress; her father 1 year ago and her mother has severe cognitive decline d/t Alzheimers. She is seeing a counselor regularly. Will likely need repeat UDS to re-eval bladder function, and FU with Dr. Wang to discuss results + next steps. Of note, has had intradetrusor Botox in the past (prior to surgery); she believes she received 100U and did not think this was helpful Plan: Will rout to Dr. Wang as FYI and coordinate follow up Pt opts to stop Myrbetriq for now d/t side effects Nelsy Chávez APRN.KWESI I spent a total of 45 minutes on the date of the service which included preparing to see the patient, boki-dw-qcvt patient care, completing clinical documentation, performing a medically appropriate examination, counseling and educating the patient/family/caregiver and ordering medications, tests, or procedures. Referring Provider: SELF [200] Allergies As of Date: 07/31/2023 Noted Allergy Reaction RISPERIDONE 07/27/2021 5 - Intolerance Comments: Breast discharge Date Reviewed: 07/31/2023 Reviewed by: Jessica Cornell RN - Fully Assessed Reason for Visit: Urinary Retention [228] Primary Visit Diagnosis:Incomplete bladder emptying [R33.9] Other Visit Diagnoses:Constipation, unspecified constipation type [K59.00] Urinary urgency [R39.15] Urinary frequency [R35.0] Nocturia [R35.1] Order(s):UA DIP, URINE (POC) [[id number]] Order #: [id number]. #:[id number] URODYNAMICS I [[id number]] Order #: [id number] Prescriptions as of 07/31/2023 - atenolol (TENORMIN) 25 mg tablet Take 1 tablet by mouth every afternoon. - AJOVY AUTOINJECTOR 225 mg/1.5 mL auto-injector inject 1 AND 1/2 milliliters subcutaneously every 28 DAYS - Dexlansoprazole 60 mg CpDM take 1 capsule by mouth before breakfast - sucralfate (CARAFATE) 100 mg/mL suspension Take 10 mL by mouth twice daily. - Cholecalciferol, Vitamin D3, 25 mcg (1,000 unit) cap Take 1,000 Units by mouth once daily. - cyanocobalamin (VITAMIN B-12) 1,000 mcg tab Take 1,000 mcg by mouth once daily. - cyclobenzaprine (FLEXERIL) 10 m (more content not included)... Normal [facility] UA DIP, URINE (POC)on 2022 BILIRUBIN UA (POCT) Negative Negative [facility] CLARITY UA (POCT) Clear [facility] COLOR UA (POCT) Yellow [facility] GLUCOSE UA (POCT) Negative Negative mg/dL [facility] Hemoglobin Ql (U) Negative Negative [facility] KETONE UA (POCT) Negative Negative mg/dL [facility] LEUKOCYTES UA (POCT) Negative Negative [facility] NITRITE UA (POCT) Negative Negative [facility] PH UA (POCT) 5.0 4.5 - 8.0 [facility] Protein Ql (U) Negative Negative mg/dL [facility] SPECIFIC GRAVITY UA (POCT) 1.010 1.005 - 1 .030 [facility] UROBILINOGEN UA (POCT) 0.2 E.U./dL Normal E.U./ dL [facility] HISTOLOGY - TISSUE EXAMon LAB AP ASR DISCLAIMER The interpretation of this case included the use of immunohistochemistry or special stains. These tests have not been cleared or approved by the U.S. Food and Drug Administration. The FDA has determined that such clearance or approval is not necessary. These tests are used for clinical purposes and should not be regarded as investigational or for research. This laboratory is certified to perform high complexity testing under the Clinical Laboratory Improvement Amendments of 1998. [facility] Comment on above: Performed By: #### L [id number] ####[facility] ([facility])[address] [place] [place] [address] LAB AP CASE REPORT Normal [facility] Comment on above: Result Comment: Surg ical Pathology Case: [id number] Authorizing Provider: Matteo Quinones MD Collected: 07/25/2023 1126 Ordering Location: [facility] Received: 07/25/2023 1233 [facility] [place] Pathologist: Boni Benito MD Specimens: A) - Small Intestine, Duodenum, R/O CELIAC B) - Gastric, R/O H PYLORI C) - Distal Esophagus, R/O EOE D) - Proximal Esophagus, R/O EOE E) - Small Intestine, Terminal Ileum, R/O COLITIS Performed By: #### L [id number] ####[facility] ([facility])[address] [place] [address] LAB AP CLINICAL INFORMATION Order Diagnoses [facility] Comment on above: Result Comment: K21. 9 - Gastroesophageal reflux disease without esophagitis [ICD-10-CM] R11.0 - Nausea [ICD-10-CM] R19.7 - Diarrhea, unspecified type [ICD-10-CM] Performed By: #### L [id number] ####[facility] ([facility])[address] [place] [address] LAB AP GROSS DESCRIPTION [facility] Comment on above: Result Comment: A. S mall Intestine, Duodenum. Received in formalin in a container labeled Mary Leal, Duodenum R/O CELIAC . It consists of 4, soft, jaimes-white tissue biopsy fragments measuring 0.5 x 0.4 x 0.2 cm in aggregate. The entire specimen is submitted in 1 cassette. Please note, some minute fragments may not survive processing. Leyla Goetz, PGY 1 B. Gastric. Received in formalin in a container labeled Mary Ornelasgs, Gastric R/O H PYLORI . It consists of 5, soft, jaimes-white tissue biopsy fragments measuring 0.6 x 0.3 x 0.2 cm in aggregate. The entire specimen is submitted in 1 cassette. Please note some minute fragments may not survive processing Leyla Goetz, PGY 1 C. Distal Esophagus. Received in formalin in a container labeled Mary Leal, Distal esoph R/O EOE . It consists of 3, soft, jaimes-white tissue biopsy fragments measuring 0.6 x 0.3 x 0.1 cm in aggregate. The entire specimen is submitted in 1 cassette. Leyla Goetz, PGY 1 D. Proximal Esophagus. Received in formalin in a container labeled Mary Leal, Proximal Eso R/O EOE . It consists of 2, soft, jaimes-white tissue biopsy fragments measuring 0.4 x 0.2 x 0.1 cm in aggregate. The entire specimen is submitted in 1 cassette. Leyla Goetz, PGY 1 E. Small Intestine, Terminal Ileum. Received in formalin in a container labeled Mary Leal, Terminal Ile R/O COLITIS . It consists of 2, soft, jaimes-white tissue biopsy fragments measuring 0.3 x 0.2 x 0.2 cm and 0.1 x 0.1 x 0.1 cm in aggregate. The entire specimen is submitted in 1 cassette. Leyla Goetz, PGY 1 Performed By: #### L [id number] ####[facility] ([facility])[address] [place] [address] LAB AP MICROSCOPIC DESCRIPTION Microscopic examination performed. [facility] Comment on above: Performed By: #### L [id number] ####[facility] ([facility])[address] [place] [address] LAB AP REPORT FINAL DIAGNOSI S NARRATIVE Normal [facility] Comment on above: Result Comment: A. D uodenum, biopsy: Superficial fragments of duodenal mucosa without significant pathology. No celiac disease, dysplasia or malignancy identified. B. Stomach, biopsy: Gastric mucosa with mild chronic inflammation without activity. No Helicobacter pylori identified, immunohistochemical stain with controls. No intestinal metaplasia, dysplasia or malignancy identified. C. Esophagus, distal, biopsy: Squamous epithelium without significant pathology. No eosinophilic esophagitis, dysplasia or malignancy identified. D. Esophagus, proximal, biopsy: Squamous mucosa without significant pathology. No eosinophilic esophagitis, dysplasia or malignancy identified. E. Small bowel, terminal ileum, biopsy: Small bowel mucosa without significant pathology. No ileitis, dysplasia or malignancy identified. Performed By: #### L [id number] ####[facility] ([facility])[address] [place] [address] on 07-25-2023 HP Attestation signed by Matteo Quinones MD at 08/01/2023 12:46 PM I saw and evaluated the patient. I reviewed the resident's/fellow's note and agree with the findings and plan documents in the resident's/fellow's note History Of Present Illness Mary Leal is a 53 y.o. 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 Patient reports that she has been struggling with abdominal pain and loose bowel movements for a number of years. She reports that she has diffuse abdominal pain that is sometimes immediately after eating and sometimes unrelated to food intake. She notes that over the past 2 months, she has lost approximately 30 pounds. She also endorses intermittent hematochezia mainly when wiping. Over this time period, she also reports that she has been struggling with dysphagia to solids but not to liquids. She denies any progressive worsening of her dysphagia. She underwent an EGD in December 2022 which demonstrated LA grade D esophagitis. She also underwent a flex sig in November 2022 which was grossly unremarkable. She presents today for diagnostic EGD and colonoscopy Past Medical History She has a past medical history of ADHD (attention deficit hyperactivity disorder), Anxiety, Asthma, Depression, GERD (gastroesophageal reflux disease), Hypertension, and Sleep apnea. Surgical History She has a past surgical history that includes Colon surgery; Stomach surgery; Hysterectomy; Appendectomy; Esophagogastroduodenoscopy; and Foot surgery (Right). Social History She reports that she has never smoked. She has never used smokeless tobacco. She reports that she does not drink alcohol and does not use drugs. Family History No family history on file. Allergies Risperidone and Poison laith Medications (Not in a hospital admission) Review of Systems Last Recorded Vitals Visit Vitals BP 120/73 Pulse 70 Temp 36.4 ???C (97.5 ???F) (Temporal) Resp 20 Ht 1.626 m (5' 4 ) Wt 69.2 kg (152 lb 8.9 oz) SpO2 99% BMI 26.19 kg/m??? Smoking Status Never BSA 1.77 m??? Physical Exam Relevant Lab Results Lab Results Component Value Date NA 139 05/31/2023 K 4.6 05/31/2023 CL 105 05/31/2023 CO2 27 05/31/2023 BUN 16 05/31/2023 CREATININE 0.75 05/31/2023 GLUCOSE 103 (H) 05/31/2023 CALCIUM 9.8 05/31/2023 ANIONGAP 12 05/31/2023 EGFR 96.3 05/31/2023 BCR 21.3 05/31/2023 Relevant Imaging Results No image results found. Assessment/Plan Mary Leal is a 53 y.o. 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 Plan EGD and colonoscopy [facility] HP H&P reviewed. The patient was ex amined and there are no changes to the H&P. [facility] NURSNOTEon 07-25-2023 NURSNOTE ANASTOMOSIS SITE REACHED [facility] Orders Onlyon 07-25-2023 Orders Only [id number] ElvisDarrian arriaza en 1970 Date [facility] Department Ashby 07/25/202333170-GWHWQFILIPE PAZ [facility] Pavi No family history on file [facility] POCT GLUCOSE METER UNSOLICIT ED RESULTSon 07-25-2023 Glucose [Mass/Vol] 87 mg/dL Normal 70-105 [facility] Comment on above: Order Comment: Waive d Testing in the ED is performed under the ED CLIA certificate #[id number]. Result Comment: dhol as Performed By: #### L [id number] #### [facility] ([facility]) [address] [place] [address] Orders Onlyon 07-21-2023 Orders Only [id number] ElvisDarrian arriaza en 1970 F Date [facility] Department [place] 07/21/2023 ARELI PEREA [facility] No family history on file [facility] Orders Onlyon 07-19-2023 Orders Only [id number] ElvisDenverist en 1970 F Date [facility] Department [place] 07/19/2023 Karli-GIANA MORALES [facility] Gerardo Heal No family history on file [facility] Prep for Procedureon 023 Prep for Procedure [id number] ElvisDenverist en 1970 F Date [facility] 07/17/2023 Sakina-MATTEO QUINONES [facility] No family history on file [facility] HPon 07-11-2023 HP Formatting of this n ote is different from the original. Images from the original note were not included. [facility] [address] [place] [address] DR LOZA [address] [place] [id number] SUBJECTIVE: Patient ID: Mary Leal is a 53 y.o. female presents today for Chief Complaint Patient presents with New Patient CHUCKIE HPI: Mary Leal is a 53 y.o. female seen at the request of Eliceo Willams Jr., DO for evaluation of CHUCKIE. Has tried CPAP, no longer wearing it. Was referred by Pauline Christensen MD. Here to inquire about the Inspire hypoglossal nerve stimulator. Does not have breast implants. Never smoker. Also reports that her voice is always hoarse and she hacks up phlegm 24/7, thick and foamy. Has bad GERD, Takes Dexilant daily, sees Dr. Montague at [facility]. HISTORY: Past Medical History: Diagnosis Date ADD (attention deficit disorder) Anxiety Asthma Bipolar disorder ([facility]) Depression Dysphagia Gastric paresis GERD (gastroesophageal reflux disease) Headache migraines History of pleurisy STATES 2 WEEKS AGO Hypertension Obesity Primary insomnia 07/07/2020 Rectal bleeding Restless leg syndrome Visual impairment one contact left, glasses Past Surgical History: Procedure Laterality Date APPENDECTOMY ARTHROSCOPIC REPAIR ACL Left COLONOSCOPY COLONOSCOPY with bx's N/A 03/20/2020 Performed by Noman Mayo MD at [facility] ENDOSCOPY EGD, DILATATION N/A 09/25/2020 Performed by Noman Mayo MD at [facility] ENDOSCOPY FOOT SURGERY 06/25/2020 left foot surgery HYSTERECTOMY LASER LINGUAL TONISILLECTOMY Circumferential 07/08/2021 Performed by Areli Avila MD PhD at [facility] MRI FOOT LEFT NECK SURGERY PLANTAR FASCIECTOMY RELEASE PHARYNGEAL SCAR CPT 65701 Circumferential 07/08/2021 Performed by Areli Avila MD PhD at [facility] RESECTION SUBMUCOSAL NASAL Bilateral 02/11/2021 Performed by Areli Avila MD PhD at [facility] SEPTOPLASTY Circumferential 02/11/2021 Performed by Areli Avila MD PhD at [facility] TONSILLECTOMY Bilateral 02/11/2021 Performed by Areli Avila MD PhD at [facility] uvuloplasty N/A 02/11/2021 Performed by Areli Avila MD PhD at [facility] Family History Problem Relation Age of Onset Hypertension Mother Dementia Mother Atrial fibrillation Father Colon cancer Other Social History Socioeconomic History Marital status: Spouse name: Not on file Number of children: Not on file Years of education: Not on file Highest education level: Not on file Occupational History Not on file Tobacco Use Smoking status: Never Smokeless tobacco: Never Vaping Use Vaping Use: Never used Substance and Sexual Activity Alcohol use: Not Currently Drug use: Never Sexual activity: Yes Other Topics Concern Not on file Social History Narrative Not on file Social Determinants of Health Financial Resource Strain: Not on file Transportation Needs: Not on file Physical Activity: Not on file Stress: Not on file Social Connections: Not on file Intimate Partner Violence: Not on file Allergies Allergen Reactions Risperidone My Boobs Leak Current Outpatient Medications Medication Sig Dispense Refill atenoloL (TENORMIN) 25 mg tablet Take 1 tablet (25 mg total) by mouth in the morning. cholecalciferol, vitamin D3, 2,000 units capsule Take 1 capsule (2,000 Units total) by mouth in the morning. dexlansoprazole (DEXILANT) 60 mg capsule Take 1 capsule (60 mg total) by mouth in the morning. eszopiclone (LUNESTA) 3 mg tablet Take 1 tablet (3 mg total) by mouth nightly. vserxzopjpf-jqmyybdxq-pnezuqeu (TRELEGY ELLIPTA) 100-62.5-25 mcg blister with device Inhale 1 puff in the morning. 60 each 5 fremanezumab-vfrm (AJOVY) 225 mg/1.5 mL Inject 1.5 mL (225 mg total) under the skin every 28 days. 1.5 mL 5 LORazepam (ATIVAN) 1 mg tablet Take 1 tablet (1 mg total) by mouth daily as needed. mirabegron (MYRBETRIQ) 25 mg tablet extended release 24 hr Take 1 tablet (25 mg total) by mouth in the morning. rOPINIRole (REQUIP) 2 mg tablet Take 1 tablet (2 mg total) by mouth in the morning and at bedtime. Patients takes 0.5 MG in the morning and 1 MG at night traZODone (DESYREL) 50 mg tablet Take 3 tablets (150 mg total) by mouth nightly. at bedtime atorvastatin (LIPITOR) 20 mg tablet Take 1 tablet (20 mg total) by mouth in the morning. (Patient not taking: Reported on 07/11/2023) cyclobenzaprine (FLEXERIL) 10 mg tablet Take 1 tablet (10 mg total) by mouth 3 (three) times a day. (Patient not taking: Reported on 07/11/2023) ketorolac (TORADOL) 10 mg tablet Take at onset of migraine, may take up to 2 times a day. No more than 1-2 a week (Patient not taking: Reported on 07/11/2023) 10 tablet 0 promethazine (PHENERGAN) 12.5 mg tablet Take two tablets at onset of migraine, may take up to twice a day, no mor (more content not included)... [facility] Orders Onlyon 06-26-2023 Orders Only [id number] Darrian Leal 1970 F Date Provider Department Center 06/26/2023 GIANA JAMES [facility] Gerardo Heal No family history on file [facility] Office Visit (Cardiology)on 06-13-2023 Follow-up visit Diagnoses/Problems Assessed Chest pain (786.50) (R07.9) Elevated troponin (790.6) (R77.8) Fatigue (780.79) (R53.83) Never a smoker Overweight with body mass index (BMI) of 27 to 27.9 in adult (278.02,V85.23) (E66.3,Z68.27) Orders Elevated troponin IO EKG Electrocardiogram- 12 Lead; Status:Active - Perform Order,Retrospective Authorization; Requested for:[id number]; Overweight with body mass index (BMI) of 27 to 27.9 in adult Healthy Weight Tips; Status:Complete - Retrospective Authorization; Done: [id number] Some eating tips that can help you lose weight.; Status:Complete - Retrospective Authorization; Done: [id number] SocHx: Never a smoker Tobacco Use Screening; Status:Complete; Done: [id number] Patient Instructions Please bring all medicines, vitamins, and herbal supplements with you when you come to the office. Prescriptions will not be filled unless you are compliant with your follow up appointments or have a follow up appointment scheduled as per instruction of your physician. Refills should be requested at the time of your visit. f/u prn Chief Complaint Patient is a 53-year-old female who returns at the request of her primary care physician with episodic chest discomfort associated weakness, dizziness, diaphoresis with recent work-up that [facility] emergency room. Reportedly her troponins are elevated although we have no documentation at this time but will obtain this documentation Today's ECG in the office was completely normal. She states she has sporadic, sharp, fleeting as well as right-sided, shoulder and back discomfort. She has a number of GI issues with previous partial colectomy as an inflammatory bowel disease details of which are currently being investigated at [facility] (now her fourth GI specialist). Last year while in [place] she had similar issues with elevated troponins in the ED and underwent heart catheterization that did not reveal any specific significant disease, details of the discharge summary are reviewed She underwent recent stress perfusion imaging at [facility], the report is reviewed, she has no evidence of myocardial infarction, ischemia and has preserved/normal left ventricular function. She is nondiabetic, non-smoker there is a family history of coronary disease in her father and grandfather She denies any previous true myocardial infarction, revascularization, stroke, thromboembolic bleeding disorder. She ambulates without any hindrance or restrictions other than she has a walking boot on for recent ankle injury. Recommendations: No evidence of ischemic coronary disease, will investigate the troponin rise at [facility] however I believe this is likely a non-[place] troponin elevation, likely associated with underlying inflammatory bowel disease. We will follow-up on a as needed basis unless further objective data come to light Surgical History Problems History of Colon surgery History of Colonoscopy History of Foot surgery History of Hand surgery History of Hysterectomy History of Knee surgery History of Neck surgery History of Rectal surgery History of Rotator cuff repair History of Tonsillectomy with adenoidectomy History of Tubal ligation Current Meds Medication NameInstruction Atenolol 25 MG Oral TabletTAKE 1 TABLET DAILY. Dexilant 60 MG Oral Capsule Delayed ReleaseTAKE 1 CAPSULE DAILY EVERY MORNING BEFORE BREAKFAST. Lipitor 20 MG Oral TabletTAKE 1 TABLET AT BEDTIME. Lunesta 3 MG Oral TabletTAKE 1 TABLET AT BEDTIME. rOPINIRole HCl - 1 MG Oral Tablet1 tablet every AM AND 2 tablets every HS traZODone HCl - 100 MG Oral TabletTAKE 2 TABLETS AT BEDTIME. Patient did not bring medication list or bottles. Updated verbally with patient Allergies Medication RisperDAL TABS Recorded By: Estelle Mon; 05/12/2022 8:50:18 AM Social History Problems Daily caffeine consumption, 2-3 servings a day 3 TEA WEEK Never a smoker No alcohol use No illicit drug use Review of Systems Constitutional: not feeling tired. Cardiovascular: chest pain and palpitations, but no intermittent leg claudication and as noted in HPI. Respiratory: shortness of breath, but no cough. Gastrointestinal: no change in bowel habits and no blood in stools. Integumentary: no skin rashes. Neurological: dizziness, but no seizures and no frequent falls. All other systems have been reviewed and are negative for complaint. Vitals Vital Signs Recorded: 13Jun2023 10:37AM Heart Rate70, Apical Lxzfldtv924, RUE, Sitting Ptvmbnngv65, RUE, Sitting Height5 ft 4 in Ezarix858 lb BMI Ujspeuebjz21.46 kg/m2 BSA Calculated1.78 Tobacco Useb) No PHQ-2 #1. Over the last 2 weeks have you felt down, depressed or hopeless? (If yes, answer PHQ-9 below)No PHQ-2 #2. Over the last 2 weeks have you felt little interest or pleasure in doing things? (If yes, answer PHQ-9 below)Yes Falls Screening (Age 18+)a) No falls within the last year PHQ-9 #1. Lit (more content not included)... Normal [employer] Tobacco Screening.on 023 Adult depression screening assessment No [facility] [employer] [facility] [address] DO Work Phone: Adult depression screening assessment Yes [facility] [address] DO Work Phone: Adult depression screening assessment Moderate (10-14) [facility] H [facility] [address] DO Work Phone: Fall risk assessment a) No falls within the last year [facility] [place] [address] DO Work Phone: Tobacco use status CP b) No M [facility] [address] DO Work Phone: Tobacco Screening. 1-Several days [facility] [address] DO Work Phone: Tobacco Screening. 3-Nearly every day -[facility] [address] DO Work Phone: Tobacco Screening. 0-Not at all [facility] [address] DO Work Phone: Tobacco Screening. Somewhat Difficult [facility] [address] DO Work Phone: STR cardiac stress/lexiscano n 06-09-2023 STR cardiac stress/lexiscan [facility] Main [place] [address] [place] [address] Cardiac Stress Test Signed Patient: Mary Leal MR#: [id number] 863 : 1970 Acct:[id number] Age/Sex: 53 / F ADM Date: 06/05/23 Loc: ER Room: Type: [facility] ER Attending Dr: Copies to: DO Marielle Soto MD, [facility] Ordering Provider: Anibal Valle DO Date of Service: 06/07/23 STR/STR cardiac stress/lexiscan: chest pain ORDERED BY: Anibal Valle DO A 53-year-old patient with chest pain. Resting EKG revealed normal sinus rhythm with a heart rate of 66 beats per minute. Resting blood pressure 106/68 mmHg. Following intravenous administration of 400 mcg of Lexiscan over 10 seconds, no ischemic EKG changes were noted. No chest pain was reported by the patient and no cardiac arrhythmias were seen. Cardiolite study followed. CONCLUSION: 1. No Lexiscan-induced ischemic EKG changes, chest pain or cardiac arrhythmias. 2. Cardiolite studies to be reported separately by nuclear cardiology. Transcribed By: NTS 06/09/23 1614 Dictated By: Marielle Scruggs MD, [facility] 06/09/23 1550 Signed By: 06/10/23 0903 [facility] Telemedici neon 06-08-2023 Behavioral [facility] Telemedicine [id number] Mary Leal 1970 F Date Provider Department Center 06/08/2023 Karli-GIANA MORALES [facility] PSYCH Gerardo Heal No family history on file Level of Service:66549 FL OFFICE/OUTPATIENT ESTABLISHED MOD MDM 30-39 MIN Reason for Visit and Comments: Telehealth Audio/video Visit [871] Normal [facility] NM mirtha perf SPECT rest stron 06-08-2023 NM mirtha perf SPECT rest str [facility] [address] Nuclear Medicine Report Signed Patient: Mary Leal MR#: [id number] 863 : 1970 Acct:[id number] Age/Sex: 53 / F ADM Date: 06/05/23 Loc: ER Room: Type: [facility] ER Attending Dr: Copies to: DO Marielle Soto MD, [facility] Ordering Provider: Anibal Valle DO Date of Service: 06/07/23 NM/NM mirtha perf SPECT rest str: CP ORDERED BY: Anibal Valle DO A 53-year-old patient with chest pain. Resting images were obtained after intravenous administration of 29.6 mCi of Cardiolite given on 06/08/2023, and stress images were obtained after intravenous administration of 28.6 mCi of Cardiolite given after Lexiscan administration on 06/07/2023. Subsequently, gated SPECT MPI was obtained. TOMOGRAPHIC DATA: Quality of the study is good. The study demonstrated normal tracer uptake with no ischemia or prior myocardial infarction. Left ventricular volume and wall motions are normal. Ejection fraction measured 71% with normal TID at 0.86. CONCLUSION: 1. Normal Lexiscan Cardiolite SPECT MPI. 2. No tomographic evidence of ischemia or prior myocardial infarction. 3. Normal left ventricular volume and wall motion, ejection fraction measured 71% with normal TID at 0.86. No previous studies are available for comparison. Transcribed By: NTS 06/08/23 1659 Dictated By: Marielle Scruggs MD, [facility] 06/08/23 1540 Signed By: 06/09/23 1532 Normal [facility] 36on 06-05-2023 36 Patient calls wonder ing about her calprotectin being high. Please advise Normal [facility] Activated partial thrombopla stin time (aPTT) in platelet poor plasma by coagulation aOrdered By: Anibal Valle on 06-05-2023 aPTT Coag (PPP) [Time] 28.0 s 25.1-36.5 [facility] B-Type Natriuretic Peptideon 06-05-2023 Natriuretic peptide B (Bld) [Mass/Vol] 39.0 pg/mL Normal 5-100 [facility] Comment on above: Result Comment: PERF ORMED BY: [place] [address] PATHOLOGIST SUSTAINABILITY OFFICER LEVAR CASE M.D. Performed By: #### T 4T, ESR, URIC, CRP, TSH3 #### [facility] [address] [place] [address] #### RA, CHUYITA #### [facility] , Basic Metabolic Panelon 05-08 Anion gap [Moles/Vol] 10.6 mmol/L Normal 6.0-15.0 [facility] Comment on above: Performed By: #### T 4T, ESR, URIC, CRP, TSH3 #### [facility] [address] [place] [address] #### RA, CHUYITA #### [facility] , Calcium [Mass/Vol] 9.0 mg/dL Normal 8.6-10.3 [facility] Comment on above: Performed By: #### T 4T, ESR, URIC, CRP, TSH3 #### [facility] [address] [place] [address] [place] #### RA, CHUYITA #### [facility] , Chloride [Moles/Vol] 108 mmol/L High 98-107 [facility] Comment on above: Performed By: #### T 4T, ESR, URIC, CRP, TSH3 #### [facility] [address] [place] [address] [place] #### RA, CHUYITA #### [facility] , CO2 [Moles/Vol] 23.2 mmol/L Normal 21.0-31.0 [facility] Comment on above: Performed By: #### T 4T, ESR, URIC, CRP, TSH3 #### [facility] [address] [place] [address] [place] #### RA, CHUYITA #### [facility] , Creatinine [Mass/Vol] 0.67 mg/dL Normal 0.60-1.20 [facility] Comment on above: Performed By: #### T 4T, ESR, URIC, CRP, TSH3 #### [place] [address] [place] #### RA, CHUYITA #### [facility] , Creatinine Clr Calc Pharmacy 97.82 [facility] Comment on above: Result Comment: PERF ORMED BY: [place] [address] PATHOLOGIST SUSTAINABILITY OFFICER LEVRA CASE M.D. Performed By: #### T 4T, ESR, URIC, CRP, TSH3 #### [address] #### RA, CHUYITA #### [facility] , GFR/1.73 sq M.predicted MDRD (S/P/Bld) [Vol rate/Area] mL/min/{1.73_m2} [facility] Comment on above: Performed By: #### T 4T, ESR, URIC, CRP, TSH3 #### [facility] [address] [place] [address] [place] #### RA, CHUYITA #### [facility] , Glucose [Mass/Vol] 106 mg/dL High 70-100 [facility] Comment on above: Result Comment: [place] om Glucose Reference Range is dependent on time and content of last meal. Glucose of more than 200 mg/dL in a nonstressed, ambulatory subject supports the diagnosis of Diabetes Mellitus. ADA recommended reference range Performed By: #### T 4T, ESR, URIC, CRP, TSH3 #### [place] [address] [place] #### RA, CHUYITA #### [facility] , Potassium [Moles/Vol] 3.8 mmol/L Normal 3.5-5.1 [facility] Comment on above: Performed By: #### T 4T, ESR, URIC, CRP, TSH3 #### [facility] [address] [place] [address] [place] #### RA, CHUYITA #### [facility] , Sodium [Moles/Vol] 138 mmol/L Normal 136-145 [facility] Comment on above: Performed By: #### T 4T, ESR, URIC, CRP, TSH3 #### [facility] [address] [place] [address] [place] #### RA, CHUYITA #### [facility] , Urea nitrogen [Mass/Vol] 10 mg/dL Normal 7-25 [facility] Comment on above: Performed By: #### T 4T, ESR, URIC, CRP, TSH3 #### [facility] [address] [place] [address] [place] #### RA, CHUYITA #### [facility] , Basophils Auto (Bld) [#/Vol] Ordered By: Anibal Valle on 06-05-2023 Basophils (Bld) [#/Vol] 0.0 10*3/uL 0.0-0.2 [facility] Basophils/100 WBC Auto (Bld) Ordered By: Anibal Valle on 06-05-2023 Basophils/100 WBC (Bld) 0.4 % . F [facility] Calcium [Mass/volume] in Ser um or PlasmaOrdered By: Anibal Valle on 06-05-2023 Calcium [Mass/Vol] 9.0 mg/dL 8.6-10.3 [facility] Carbon dioxide, total [Moles /volume] in Serum or PlasmaOrdered By: Anibal Valle on 06-05-2023 CO2 [Moles/Vol] 23.2 mmol/L 21.0-31.0 [facility] Chloride [Moles/volume] in S jay or PlasmaOrdered By: Anibal Valle on 06-05-2023 Chloride [Moles/Vol] 108 mmol/L 98-107 [facility] Complete Blood Count Auto Di ffon 06-05-2023 Basophils (Bld) [#/Vol] 0.0 10*3/uL Normal 0.0-0.2 [facility] Comment on above: Result Comment: PERF ORMED BY: [place] [address] PATHOLOGIST SUSTAINABILITY OFFICER LEVAR CASE M.D. Performed By: #### T 4T, ESR, URIC, CRP, TSH3 #### [address] #### RA, CHUYITA #### [facility] , Basophils/100 WBC (Bld) 0.4 % Normal . [facility] Comment on above: Performed By: #### T 4T, ESR, URIC, CRP, TSH3 #### [facility] [address] [place] [address] #### RA, CHUYITA #### [facility] , Eosinophils (Bld) [#/Vol] 0.1 10*3/uL Normal 0.0-0.45 [facility] Comment on above: Performed By: #### T 4T, ESR, URIC, CRP, TSH3 #### [address] #### RA, CHUYITA #### [facility] , Eosinophils/100 WBC (Bld) 1.9 % Normal . [facility] Comment on above: Performed By: #### T 4T, ESR, URIC, CRP, TSH3 #### [place] [address] [place] #### RA, CHUYITA #### [facility] , Erythrocyte distribution wid th (RBC) [Ratio] 13.9 % Normal 11.9-15.3 [facility] Comment on above: Performed By: #### T 4T, ESR, URIC, CRP, TSH3 #### [place] [address] [place] #### RA, CHUYITA #### [facility] , Hematocrit (Bld) [Volume fraction] 34.4 % Normal 34.0-46.4 [facility] Comment on above: Performed By: #### T 4T, ESR, URIC, CRP, TSH3 #### [facility] [address] [place] [address] [place] #### RA, CHUYITA #### [facility] , Hemoglobin (Bld) [Mass/Vol] 11.9 g/dL Normal 11.8-15. 4 [facility] Comment on above: Performed By: #### T 4T, ESR, URIC, CRP, TSH3 #### [address] #### RA, CHUYITA #### [facility] , Lymphocytes (Bld) [#/Vol] 1.8 10*3/uL Normal 1.00-4.8 [facility] Comment on above: Performed By: #### T 4T, ESR, URIC, CRP, TSH3 #### [place] [address] [place] #### RA, CHUYITA #### [facility] , Lymphocytes/100 WBC (Bld) 41.0 % Normal . [facility] Comment on above: Performed By: #### T 4T, ESR, URIC, CRP, TSH3 #### [place] [address] [place] #### RA, CHUYITA #### [facility] , MCH (RBC) [Entitic mass] 27.7 pg Normal 24.7-34.3 [facility] Comment on above: Performed By: #### T 4T, ESR, URIC, CRP, TSH3 #### [place] [address] [place] #### RA, CHUYITA #### [facility] , MCV (RBC) [Entitic vol] 80.2 fL Normal 80-100 F [facility] Comment on above: Performed By: #### T 4T, ESR, URIC, CRP, TSH3 #### [facility] [address] [place] [address] [place] #### RA, CHUYITA #### [facility] , Mean Corpuscular HGB Conc 34.5 g/dL Normal 32.0-35.0 [facility] Comment on above: Performed By: #### T 4T, ESR, URIC, CRP, TSH3 #### [facility] [address] [place] [address] [place] #### RA, CHUYITA #### [facility] , Monocytes (Bld) [#/Vol] 0.3 10*3/uL Normal 0.0-0.8 [facility] Comment on above: Performed By: #### T 4T, ESR, URIC, CRP, TSH3 #### [facility] [address] [place] [address] #### RA, CHUYITA #### [facility] , Monocytes/100 WBC (Bld) 24.18 % High 0.00-20.00 [facility] Comment on above: Result Comment: For adults in ED, MDW > 20.0 may be associated with a higher risk of sepsis during the first 12 hrs of hospital admission Performed By: #### T 4T, ESR, URIC, CRP, TSH3 #### [facility] [address] [place] [address] [place] #### RA, CHUYITA #### [facility] , Monocytes/100 WBC (Bld) 7.5 % Normal . F [facility] Comment on above: Performed By: #### T 4T, ESR, URIC, CRP, TSH3 #### [facility] [address] [place] [address] [place] #### RA, CHUYITA #### [facility] , Neutrophils (Bld) [#/Vol] 2.2 10*3/uL Normal 1.8-7.7 [facility] Comment on above: Performed By: #### T 4T, ESR, URIC, CRP, TSH3 #### [facility] [address] [place] [address] [place] #### RA, CHUYITA #### [facility] , Neutrophils/100 WBC (Bld) 49.2 % Normal . [facility] Comment on above: Performed By: #### T 4T, ESR, URIC, CRP, TSH3 #### [facility] [address] [place] [address] [place] #### RA, CHUYITA #### [facility] , NRBC% 0.1 /100{WBC} Normal 0-0.5 [facility] Comment on above: Performed By: #### T 4T, ESR, URIC, CRP, TSH3 #### [facility] [address] [place] [address] [place] #### RA, CHUYITA #### [facility] , Platelet mean volume (Bld) [Entitic vol] 7.4 fL Normal 6.3-10.7 [facility] Comment on above: Performed By: #### T 4T, ESR, URIC, CRP, TSH3 #### [facility] [address] [place] [address] [place] #### RA, CHUYITA #### [facility] , Platelets (Bld) [#/Vol] 336 10*3/uL Normal 150-450 [facility] Comment on above: Performed By: #### T 4T, ESR, URIC, CRP, TSH3 #### [facility] [address] [place] [address] [place] #### RA, CHUYITA #### [facility] , RBC (Bld) [#/Vol] 4.29 10*6/uL Normal 3.60-5.00 [facility] Comment on above: Performed By: #### T 4T, ESR, URIC, CRP, TSH3 #### [facility] [address] #### RA, CHUYITA #### [facility] , WBC (Bld) [#/Vol] 4.4 10*3/uL Normal 3.8-11.6 [facility] Comment on above: Performed By: #### T 4T, ESR, URIC, CRP, TSH3 #### [facility] [address] [place] [address] #### RA, CHUYITA #### [facility] , Creatinine [Mass/volume] in Serum or PlasmaOrdered By: Anibal Valle on 06-05-2023 Creatinine [Mass/Vol] 0.67 mg/dL 0.60-1.20 [facility] ECG 12 lead ECGon 06-05-2023 ECG 12 [place] [address] Electrocardiograph Report Signed Patient: Mary Leal MR#: [id number] 863 : 1970 Acct:[id number] Age/Sex: 53 / F ADM Date: 06/05/23 Loc: ER Room: Type: [facility] ER Attending Dr: Ordering Provider: Olayinka Corado MD, RES Date of Service: 06/05/23 ECG/ECG 12 lead ECG: Chest Pain Copies to: Test Reason : Blood Pressure : 105/067 mmHG Vent. Rate : 073 BPM Atrial Rate : 073 BPM P-R Int : 184 ms QRS Dur : 080 ms QT Int : 422 ms P-R-T Axes : 058 065 050 degrees QTc Int : 464 ms Normal sinus rhythm Nonspecific T wave abnormality Prolonged QT Abnormal ECG When compared with ECG of 05-JUN-2023 09:33, (Unconfirmed) No significant change was found Confirmed by ANIBAL VALLE DO ([id number]) on 06/05/2023 4:21:05 PM Referred By: Electronically Signed By:ANIBAL VALLE DO Transcribed By: MUS Signed By Anibal Valle DO 06/05 1621 Normal [facility] ECG 12 lead ECG [facility] [place] [address] Electrocardiograph Report Signed Patient: Mary Leal MR#: [id number] 863 : 1970 Acct:[id number] Age/Sex: 53 / F ADM Date: 06/05/23 Loc: ER Room: Type: [facility] ER Attending Dr: Ordering Provider: Anibal Valle DO Date of Service: 06/05/23 ECG/ECG 12 lead ECG: Chest Pain Copies to: Test Reason : Blood Pressure : 136/082 mmHG Vent. Rate : 075 BPM Atrial Rate : 075 BPM P-R Int : 158 ms QRS Dur : 080 ms QT Int : 420 ms P-R-T Axes : 041 062 049 degrees QTc Int : 469 ms Normal sinus rhythm Normal ECG When compared with ECG of 15-AUG-2021 07:40, No significant change was found Confirmed by ANIBAL VALLE DO ([id number]) on 06/05/2023 4:21:06 PM Referred By: Electronically Signed By:ANIBAL VALLE DO Transcribed By: MUS Signed By Anibal Valle DO 06/05 1621 Normal [facility] Eosinophils Auto (Bld) [#/Vo l]Ordered By: Anibal Valle on 06-05-2023 Eosinophils (Bld) [#/Vol] 0.1 10*3/uL 0.0-0.45 [facility] Eosinophils/100 WBC Auto (Bl d)Ordered By: Anibal Valle on 06-05-2023 Eosinophils/100 WBC (Bld) 1.9 % . [facility] Erythrocyte distribution wid th Auto (RBC) [Ratio]Ordered By: Anibal Valle on 06-05-2023 Erythrocyte distribution wid th (RBC) [Ratio] 13.9 % 11.9-15.3 [facility] Glucose [Mass/volume] in Ser um or PlasmaOrdered By: Anibal Valle on 06-05-2023 Glucose [Mass/Vol] 106 mg/dL 70-100 [facility] Comment on above: ADA recommended refe rence rangeRandom Glucose Reference Range is dependent on time and content of last meal. Glucose of more than 200 mg/dL in a nonstressed, ambulatory subject supports the diagnosis of Diabetes Mellitus. Hematocrit Auto (Bld) [Volum e fraction]Ordered By: Anibal Valle on 06-05-2023 Hematocrit (Bld) [Volume fraction] 34.4 % 3 4.0-46.4 [facility] Hemoglobin [Mass/volume] in BloodOrdered By: Anibal Valle on 06-05-2023 Hemoglobin (Bld) [Mass/Vol] 11.9 g/dL 11.8-15. 4 [facility] - CoagulationOrde red By: Anibal Valle on 06-05-2023 PT Coag (PPP) [Time] 12.0 s 9.0-12.9 [facility] Leukocytes [#/volume] correc herbert for nucleated erythrocytes in Blood by Automated counOrdered By: Anibal Valle on 06-05-2023 WBC corrected for nucl RBC A uto (Bld) [#/Vol] 4.4 10*3/uL 3.8-11.6 [facility] Lymphocytes Auto (Bld) [#/Vo l]Ordered By: Anibal Valle on 06-05-2023 Lymphocytes (Bld) [#/Vol] 1.8 10*3/uL 1.00-4.8 [facility] Lymphocytes/100 WBC Auto (Bl d)Ordered By: Anibal Valle on 06-05-2023 Lymphocytes/100 WBC (Bld) 41.0 % . [facility] MCH Auto (RBC) [Entitic mass ]Ordered By: Anibal Valle on 06-05-2023 MCH (RBC) [Entitic mass] 27.7 pg 24.7-34.3 [facility] MCHC Auto (RBC) [Mass/Vol]Or dered By: Anibal Valle on 06-05-2023 MCHC (RBC) [Mass/Vol] 34.5 g/dL 32.0-35.0 [facility] MCV Auto (RBC) [Entitic vol] Ordered By: Anibal Valle on 06-05-2023 MCV (RBC) [Entitic vol] 80.2 fL 80-100 [facility] Monocyte distribution width [Entitic volume] in Blood by AutomatedOrdered By: Anibal Valle on 06-05-2023 Monocyte distribution width Auto (Bld) [Entitic vol] 24.18 % 0.00-20.00 [facility] Comment on above: For adults in ED, MD W > 20.0 may be associated with a higher risk of sepsis during the first 12 hrs of hospital admission Monocytes Auto (Bld) [#/Vol] Ordered By: Anibal Valle on 06-05-2023 Monocytes (Bld) [#/Vol] 0.3 10*3/uL 0.0-0.8 [facility] Monocytes/100 WBC Auto (Bld) Ordered By: Anibal Valle on 06-05-2023 Monocytes/100 WBC (Bld) 7.5 % . F [facility] Natriuretic peptide B [Mass/ Vol]Ordered By: Anibal Valle on 06-05-2023 Natriuretic peptide B (Bld) [Mass/Vol] 39.0 pg/mL 5-100 [facility] Neutrophils Auto (Bld) [#/Vo l]Ordered By: Anibal Valle on 06-05-2023 Neutrophils (Bld) [#/Vol] 2.2 10*3/uL 1.8-7.7 [facility] Neutrophils/100 WBC Auto (Bl d)Ordered By: Anibal Valle on 06-05-2023 Neutrophils/100 WBC (Bld) 49.2 % . [facility] No Panel InformationOrdered By: Anibal Valle on 06-05-2023 Estimated GFR (CKD-EPI) > 60.0 mL/Min [facility] Creatinine Clearanc e (Chem 97.82 [facility] Nucleated erythrocytes [Pres ence] in Blood by Automated countOrdered By: Anibal Valle on 06-05-2023 Nucleated RBC Auto Ql (Bld) 0.1 /100{WBC} 0-0.5 [facility] Partial Thromboplastin Timeo n 06-05-2023 aPTT Coag (Bld) [Time] 28.0 s Normal 25.1-36.5 [facility] Comment on above: Result Comment: PERF ORMED BY: [facility] [address] [place] [address] PATHOLOGIST SUSTAINABILITY OFFICER LEVAR CASE M.D. Performed By: #### T 4T, ESR, URIC, CRP, TSH3 #### [facility] [address] [place] [address] [place] #### RA, CHUYITA #### [facility] , Platelet mean volume Auto (B ld) [Entitic vol]Ordered By: Anibal Valle on 06-05-2023 Platelet mean volume (Bld) [Entitic vol] 7.4 fL 6.3-10.7 [facility] Platelet poor plasma interna tional normalized ratio (INR) by coagulation assay (relatOrdered By: Anibal Valle on 06-05-2023 INR Coag (PPP) [Relative time] 1.0 {INR} [facility] Comment on above: INR Therapeutic Rang e A) Pre- and Peroperative OAT started two weeks before surgery. NOT HIP SURGERY: 1.5 - 2.5 HIP SURGERY: 2 - 3B) Primary and secondary prevention of venous THROMBOSIS: 2 - 3C) Active venous thrombosis, pulmonary embolismand prevention of recurrent venous thrombosis: 2 - 3D) Prevention of arterial thromboembolismincluding patients with mechanical heart valves: 3 - 4.5 Platelets Auto (Bld) [#/Vol] Ordered By: Anibal Valle on 06-05-2023 Platelets (Bld) [#/Vol] 336 10*3/uL 150-450 [facility] Potassium [Moles/volume] in Serum or PlasmaOrdered By: Anibal Valle on 06-05-2023 Potassium [Moles/Vol] 3.8 mmol/L 3.5-5.1 [facility] Prothrombin Time INRon 06-05 INR Coag (PPP) [Relative time] 1.0 {INR} Normal [facility] Comment on above: Result Comment: INR Therapeutic Range A) Pre- and Peroperative OAT started two weeks before surgery. NOT HIP SURGERY: 1.5 - 2.5 HIP SURGERY: 2 - 3 B) Primary and secondary prevention of venous THROMBOSIS: 2 - 3 C) Active venous thrombosis, pulmonary embolism and prevention of recurrent venous thrombosis: 2 - 3 D) Prevention of arterial thromboembolism including patients with mechanical heart valves: 3 - 4.5 Performed By: #### T 4T, ESR, URIC, CRP, TSH3 #### [facility] [address] [place] [address] [place] #### RA, CHUYITA #### [facility] , PT Coag (PPP) [Time] 12.0 s Normal 9.0-12.9 [facility] Comment on above: Performed By: #### T 4T, ESR, URIC, CRP, TSH3 #### [facility] [address] [place] [address] [place] #### RA, CHUYITA #### [facility] , RBC Auto (Bld) [#/Vol]Ordere d By: Anibal Valle on 06-05-2023 RBC (Bld) [#/Vol] 4.29 10*6/uL 3.60-5.00 [facility] Serum or plasma anion gap de terminationOrdered By: Anibal Valle on 06-05-2023 Anion gap [Moles/Vol] 10.6 mmol/L 6.0-15.0 [facility] Sodium [Moles/volume] in Ser um or PlasmaOrdered By: Anibal Valle on 06-05-2023 Sodium [Moles/Vol] 138 mmol/L 136-145 [facility] Troponin I High Sensitivityo n 06-05-2023 Troponin I High Sensitivity 2.5 pg/mL Normal 0.0-15.0 [facility] Comment on above: Result Comment: PERF ORMED BY: [place] [address] PATHOLOGIST SUSTAINABILITY OFFICER LEVAR CASE M.D. Performed By: #### T 4T, ESR, URIC, CRP, TSH3 #### [facility] [address] [place] [address] #### RA, CHUYITA #### [facility] , Troponin I High Sensitivity 2.6 pg/mL Normal 0.0-15.0 [facility] Comment on above: Result Comment: PERF ORMED BY: [place] [address] PATHOLOGIST SUSTAINABILITY OFFICER LEVAR CASE M.D. Performed By: #### T 4T, ESR, URIC, CRP, TSH3 #### [place] [id number] [facility] #### RA, CHUYITA #### [facility] , Troponin I.cardiac [Mass/vol ume] in Serum or Plasma by Detection limit <= 0.01 ng/Ordered By: Anibal Valle on 06-05-2023 Troponin I.cardiac DL <= 0.0 1 ng/mL [Mass/Vol] 2.6 pg/mL 0.0-15.0 [facility] Urea nitrogen [Mass/volume] in Serum or PlasmaOrdered By: Anibal Valle on 06-05-2023 Urea nitrogen [Mass/Vol] 10 mg/dL 7-25 [facility] WBC Auto (Bld) [#/Vol]Ordere d By: Anibal Valle on 06-05-2023 WBC (Bld) [#/Vol] 4.4 10*3/uL 3.8-11.6 [facility] XR chest 1V portableon 06-05 XR chest 1V portable [facility] [place] [address] [place], [place] [id number] XRay Report Signed Patient: Mary Leal MR#: [id number] 863 : 1970 Acct:[id number] Age/Sex: 53 / F ADM Date: 06/05/23 Loc: ER Room: Type: PRE ER Attending Dr: Copies to: Anibal Valle DO Ordering Provider: Anibal Valle DO Date of Service: 06/05/23 XR/XR chest 1V portable: Chest Pain Plain film chest single view HISTORY: Midsternal chest pain COMPARISON: 02/18/2020 FINDINGS: SUPPORT DEVICES: None POSTSURGICAL CHANGES: Redemonstration of lower cervical spine postsurgical change. HEART: Within normal limits PULMONARY MEJIA: Within normal limits MEDIASTINUM: Unremarkable LUNGS AND PLEURA: No acute lung process, pleural effusion or pneumothorax identified. BONY STRUCTURES: Intact ADDITIONAL FINDINGS None XR/XR chest 1V portable IMPRESSION: No acute process. Impression dictated by: Andres Bullard M.D.06/05/2023 9:53 AM Dictation Location: RADIO-PC-12 Transcribed By: MARIO 06/05/2353 Dictated By: Andres Bullard DO 06/05/23 0952 Signed By: 06/05/2353 Normal [facility] 29on 05-31-2023 29 Addended by: KASSANDRA MONTAGUE on: 06/13/2023 03:40 PM Modules accepted: Orders Normal [facility] BASIC METABOLIC PANELon 05-07 Anion gap [Moles/Vol] 12 mmol/L Normal 7-20 [facility] Comment on above: Performed By: #### L AB15 ####[facility] (BEAKER)[address] [place] [address] Calcium [Mass/Vol] 9.8 mg/dL Normal 8.6-10.3 [facility] Comment on above: Performed By: #### L AB15 ####[facility] (BEAKER)[address] [place] [address] Chloride [Moles/Vol] 105 mmol/L Normal 98-107 [facility] Comment on above: Performed By: #### L AB15 ####[facility] (BEAKER)[address] [place] [address] CO2 [Moles/Vol] 27 mmol/L Normal 21-31 [facility] Comment on above: Performed By: #### L AB15 ####[facility] (BEAKER)[address] [place] [address] Creatinine [Mass/Vol] 0.75 mg/dL Normal 0.60-1.20 [facility] Comment on above: Performed By: #### L [id number] ####[facility] (BEAKER)[address] [place] [address] GLOMERULAR FILTRATION RATE ML/MIN/1.73 SQ M.PREDICTED 96.3 mL/min/1.73m*2 Normal >60.0 [facility] Comment on above: Result Comment: The [facility]???s estimated glomerular filtration rate (eGFR) will no longer include consideration of race in its calculation. The National Kidney Foundation???s eGFR Task Force developed new recommendations for the estimation of the glomerular filtration rate in the [place] They recommend immediate implementation of the new equation refit without the race variable in all laboratories because the calculation does not include race. In addition to not including race in the calculation and reporting, it included diversity in its development, and has acceptable performance characteristics and potential consequences that do not disproportionately affect any one group of individuals. Performed By: #### L [id number] ####[facility] ([facility])[address] [place] [address] Glucose [Mass/Vol] 103 mg/dL High 70-100 [facility] Comment on above: Performed By: #### L [id number] ####[facility] ([facility])[address] [place] [address] Potassium [Moles/Vol] 4.6 mmol/L Normal 3.5-5.[address] [facility] Comment on above: Performed By: #### L [id number] ####[facility] ([facility])[address] [facility] [address] Sodium [Moles/Vol] 139 mmol/L Normal 136-145 [facility] Comment on above: Performed By: #### L [id number] ####[facility] ([facility])[address] [place] [address] Urea nitrogen [Mass/Vol] 16 mg/dL Normal 7-25 [facility] Comment on above: Performed By: #### L [id number] ####[facility] ([facility])[address] [facility] [place] [address] UREA NITROGEN/CREATININE (MA SS RATIO) IN SER/PLAS 21.3 Normal [facility] Comment on above: Performed By: #### L [id number] ####[facility] ([facility])[address] [facility] [address] C-REACTIVE PROTEINon 05-31- 023 C REACTIVE PROTEIN (MG/L) IN SER/PLAS 2.7 mg/L Normal 0.0-7.0 [facility] Comment on above: Performed By: #### L [id number] #### [facility] ([facility] [address] [place] [address] CALPROTECTIN STOOLon 023 CALPROTECTIN, FECAL 171 ug/g High <=49 [facility] Comment on above: Result Comment: REFE RENCE INTERVAL: Calprotectin, Fecal by Immunoassay Less than 50 ug/g.........Normal 50-120 ug/g...............Borderline elevated, test should be re-evaluated in 4-6 weeks. 121 ug/g or greater.......Elevated Performed By: [employer] [address] [place] [address] Seed Tester: Moisés Moreau MD, PhD Performed By: #### L [id number] #### [facility] ([facility]) [address] [place] [address] CBC WITH AUTO DIFFERENTIALon 05-31-2023 Basophils (Bld) [#/Vol] 0.06 10*3/uL Normal 0.00-0.20 [facility] Comment on above: Performed By: #### L [id number] #### [facility] ([facility]) [address] [place] [address] Basophils/100 WBC (Bld) 0.9 % Normal 0.0-1.0 [facility] Comment on above: Performed By: #### L [id number] #### [facility] ([facility]) [address] [place] [address] Eosinophils (Bld) [#/Vol] 0.09 10*3/uL Normal 0.00-0.5 0 [facility] Comment on above: Performed By: #### L [id number] #### [facility] ([facility]) [address] [place] [address] Eosinophils/100 WBC (Bld) 1.4 % Normal 0.0-6.0 [facility] Comment on above: Performed By: #### L [id number] #### [facility] ([facility]) [address] [place] [address] Erythrocyte distribution wid th (RBC) [Ratio] 12.7 % Normal 11.5-15.0 [facility] Comment on above: Performed By: #### L [id number] #### [facility] [address] [place] [address] ERYTHROCYTE MEAN CORPUSCULAR HEMOGLOBIN CONCENTRATION (G/DL) BY AUTOMATED 32.2 g/dL Normal 32.0-35.0 [facility] Comment on above: Performed By: #### L [id number] #### [facility] ([facility]) [address] [place] [address] Hematocrit (Bld) [Volume fraction] 37.9 % Normal 36.0-48.0 [facility] Comment on above: Performed By: #### L [id number] #### [facility] ([facility]) [address] [place] [address] Hemoglobin (Bld) [Mass/Vol] 12.2 g/dL Normal 12.0-15. 0 [facility] Comment on above: Performed By: #### L [id number] #### [facility] ([facility] [address] [place] [address] Immature granulocytes (Bld) [#/Vol] 0.02 10*3/uL Normal 0.00-0.20 [facility] Comment on above: Performed By: #### L [id number] #### [facility] ([facility]) [address] [place] [address] Immature granulocytes/100 WBC (Bld) 0.3 % Normal 0.0-1.0 [facility] Comment on above: Performed By: #### L [id number] #### [facility] (BEAKER) [address] [place] [address] Lymphocytes (Bld) [#/Vol] 2.04 10*3/uL Normal 1.20-4.0 0 [facility] Comment on above: Performed By: #### L [id number] #### [facility] (BEAKER) [address] [place] [address] Lymphocytes/100 WBC (Bld) 31.9 % Normal 20.0-45.0 [facility] Comment on above: Performed By: #### L [id number] #### [facility] ([facility] [address] [place] [address] MCH (RBC) [Entitic mass] 27.0 pg Normal 27.0-33.0 [facility] Comment on above: Performed By: #### L [id number] #### [facility] ([facility]) [address] [place] [address] MCV (RBC) [Entitic vol] 83.8 fL Normal 82.0-98.0 [facility] Comment on above: Performed By: #### L [id number] #### [facility] ([facility]) [address] [place] [address] Monocytes (Bld) [#/Vol] 0.35 10*3/uL Normal 0.10-1.00 [facility] Comment on above: Performed By: #### L [id number] #### [facility] ([facility]) [address] [place] [address] Monocytes/100 WBC (Bld) 5.5 % Normal 5.0-12.0 [facility] Comment on above: Performed By: #### L [id number] #### [facility] ([facility] [address] [place] [address] Neutrophils (Bld) [#/Vol] 3.83 10*3/uL Normal 1.60-7.6 0 [facility] Comment on above: Performed By: #### L [id number] #### [facility] ([facility]) [address] [place] [address] Neutrophils/100 WBC (Bld) 60.0 % Normal 40.0-72.0 [facility] Comment on above: Performed By: #### L [id number] #### [facility] (BEAKER) [address] [place] [address] NRBC (PER 100 WBCS) BY AUTOM ATED COUNT 0.0 % Normal 0 [facility] Comment on above: Performed By: #### L [id number] #### [facility] ([facility]) [address] [place] [address] PLATELETS (10*3/UL) IN BLOOD AUTOMATED COUNT 485 10*3/uL High 150-400 [facility] Comment on above: Performed By: #### L [id number] #### [facility] ([facility]) [address] [place] [address] RBC (Bld) [#/Vol] 4.52 10*6/uL Normal 3.80-5.00 [facility] Comment on above: Performed By: #### L [id number] #### [facility] ([facility]) [address] [place] [address] WBC (Bld) [#/Vol] 6.39 10*3/uL Normal 4.00-10.60 [facility] Comment on above: Performed By: #### L [id number] #### [facility] ([facility]) [address] [place] [address] ENTERIC BACTERIA, LIMITED PA RASITE DNA PANELon 05-31-2023 CAMPYLOBACTER SPECIES Negative Normal Negative [facility] Comment on above: Order Comment: Testi ng methodology is an automated in vitro diagnostic test for the direct qualitative detection and differentiation of nucleic acids from enteric bacterial pathogens and enteric parasitic pathogens utilizing real-time polymerase chain reaction (PCR) for the amplification of relevant gene target DNA. The test utilizes fluorogenic gene-specific hybridization probes for the detection of the amplified DNA. Performed By: #### L [id number] ####[facility] ([facility])[address] [facility] [place] [address] CRYPTOSPORIDIUM (HOMINIS AND PARVUM) Negative Normal Negative [facility] Comment on above: Order Comment: Testi ng methodology is an automated in vitro diagnostic test for the direct qualitative detection and differentiation of nucleic acids from enteric bacterial pathogens and enteric parasitic pathogens utilizing real-time polymerase chain reaction (PCR) for the amplification of relevant gene target DNA. The test utilizes fluorogenic gene-specific hybridization probes for the detection of the amplified DNA. Performed By: #### L [id number] ####[facility] (BEAKER)[address] [facility] [place] [address] ENTAMOEBA HISTOLYTICA Negative Normal Negative [facility] Comment on above: Order Comment: Testi ng methodology is an automated in vitro diagnostic test for the direct qualitative detection and differentiation of nucleic acids from enteric bacterial pathogens and enteric parasitic pathogens utilizing real-time polymerase chain reaction (PCR) for the amplification of relevant gene target DNA. The test utilizes fluorogenic gene-specific hybridization probes for the detection of the amplified DNA. Performed By: #### L [id number] ####[facility] (BEAKER)[address] [place] [address] ENTEROTOXIGENIC E. COLI (ETE C) LT/ST Negative Normal Negative [facility] Comment on above: Order Comment: Testi ng methodology is an automated in vitro diagnostic test for the direct qualitative detection and differentiation of nucleic acids from enteric bacterial pathogens and enteric parasitic pathogens utilizing real-time polymerase chain reaction (PCR) for the amplification of relevant gene target DNA. The test utilizes fluorogenic gene-specific hybridization probes for the detection of the amplified DNA. Performed By: #### L [id number] ####[facility] (BEAKER)[address] [place] [address] GIARDIA LAMBLIA Negative Normal Negative [facility] Comment on above: Order Comment: Testi ng methodology is an automated in vitro diagnostic test for the direct qualitative detection and differentiation of nucleic acids from enteric bacterial pathogens and enteric parasitic pathogens utilizing real-time polymerase chain reaction (PCR) for the amplification of relevant gene target DNA. The test utilizes fluorogenic gene-specific hybridization probes for the detection of the amplified DNA. Performed By: #### L [id number] ####[facility] (BEAKER)[address] [place] [place] [address] PLESIOMONAS SHIGELLOIDES Negative Normal Negative [facility] Comment on above: Order Comment: Testi ng methodology is an automated in vitro diagnostic test for the direct qualitative detection and differentiation of nucleic acids from enteric bacterial pathogens and enteric parasitic pathogens utilizing real-time polymerase chain reaction (PCR) for the amplification of relevant gene target DNA. The test utilizes fluorogenic gene-specific hybridization probes for the detection of the amplified DNA. Performed By: #### L [id number] ####[facility] ([facility])[address] [place] [address] SALMONELLA SPECIES Negative Normal Negative [facility] Comment on above: Order Comment: Testi ng methodology is an automated in vitro diagnostic test for the direct qualitative detection and differentiation of nucleic acids from enteric bacterial pathogens and enteric parasitic pathogens utilizing real-time polymerase chain reaction (PCR) for the amplification of relevant gene target DNA. The test utilizes fluorogenic gene-specific hybridization probes for the detection of the amplified DNA. Performed By: #### L [id number] ####[facility] ([facility])[address] [place] [address] SHIGA-LIKE TOXIN-PRODUCING E . COLI (STEC) STX1/STX2 Negative Normal Negative [facility] Comment on above: Order Comment: Testi ng methodology is an automated in vitro diagnostic test for the direct qualitative detection and differentiation of nucleic acids from enteric bacterial pathogens and enteric parasitic pathogens utilizing real-time polymerase chain reaction (PCR) for the amplification of relevant gene target DNA. The test utilizes fluorogenic gene-specific hybridization probes for the detection of the amplified DNA. Performed By: #### L [id number] ####[facility] ([facility])[address] [place] [address] SHIGELLA SPECIES Negative Normal Negative [facility] Comment on above: Order Comment: Testi ng methodology is an automated in vitro diagnostic test for the direct qualitative detection and differentiation of nucleic acids from enteric bacterial pathogens and enteric parasitic pathogens utilizing real-time polymerase chain reaction (PCR) for the amplification of relevant gene target DNA. The test utilizes fluorogenic gene-specific hybridization probes for the detection of the amplified DNA. Performed By: #### L [id number] ####[facility] ([facility])[address] [place] [address] VIBRIO SPECIES Negative Normal Negative [facility] Comment on above: Order Comment: Testi ng methodology is an automated in vitro diagnostic test for the direct qualitative detection and differentiation of nucleic acids from enteric bacterial pathogens and enteric parasitic pathogens utilizing real-time polymerase chain reaction (PCR) for the amplification of relevant gene target DNA. The test utilizes fluorogenic gene-specific hybridization probes for the detection of the amplified DNA. Performed By: #### L [id number] ####[facility] (BEAKER)[address] [place] [address] YERSINIA ENTEROCOLITICA Negative Normal Negative [facility] Comment on above: Order Comment: Testi ng methodology is an automated in vitro diagnostic test for the direct qualitative detection and differentiation of nucleic acids from enteric bacterial pathogens and enteric parasitic pathogens utilizing real-time polymerase chain reaction (PCR) for the amplification of relevant gene target DNA. The test utilizes fluorogenic gene-specific hybridization probes for the detection of the amplified DNA. Performed By: #### L [id number] ####[facility] (BEAKER)[address] [place] [address] IGAon 05-31-2023 Magnesium [Mass/Vol] 265 mg/dL Normal 60-413 [facility] Comment on above: Performed By: #### L [id number] #### [facility] (BEAKER) [address] [place] [address] Labon 05-31-2023 Lab [id number] Darrian Leal en 1970 F Date Provider Department Center 05/31/2023 [facility] MP LAB RESOURCE MP DRAW Medical Pavi No family history on file Normal [facility] Office Visiton 05-31-2023 Follow-up visit [id number] Darrian Leal en 1970 F Date Provider Department [place] 05/31/2023 Carlos-SIOMARA MONTAGUE MP GI Medical Pavi No family history on file Level of Service:99718 [place] OFFICE/OUTPATIENT NEW MODERATE MDM 45-59 MINUTES Reason for Visit and Comments: Nausea [70] GERD [799319] Abdominal Pain [023897] New Patient [632] Normal [facility] PANCREATIC ELASTASE, FECALon 05-31-2023 PANCREATIC ELASTASE, FECAL 700 ug/g Normal >=100 [facility] Comment on above: Result Comment: REFE RENCE INTERVAL: Pancreatic Elastase Fecal by Immunoassay Less than 100 ug/g............Severe insufficiency 100 - 199 ug/g................Moderate insufficiency 200 ug/g or greater...........Normal INTERPRETIVE INFORMATION: Pancreatic Elastase Fecal by Immunoassay Reference intervals do not apply for infants less than one month old. Performed by [employer], [address] [place], [place] [id number] [email or web address], Moisés Moreau MD, PHD, Lab. Director Performed By: #### L [id number] #### [facility] ([facility]) [address] [place] [address] SEDIMENTATION RATEon 023 SEDIMENTATION RATE, ERYTHROCYTE 13 mm/hr Normal <=20 [facility] Comment on above: Performed By: #### L [id number] #### [facility] ([facility]) [address] [place] [address] TISSUE TRANSGLUTAMINASE, IGA on 05-31-2023 TISSUE TRANSGLUTAMINASE, IGA <2 Normal 0-3 [facility] Comment on above: Result Comment: INTE RPRETIVE INFORMATION: Tissue Transglutaminase (tTG) Antibody, IgA 3 U/mL or less: Negative 4-10 U/mL: Weak Positive 11 U/mL or greater: Positive Presence of the tissue transglutaminase (tTG) IgA antibody is associated with glutensensitive enteropathies such as celiac disease and dermatitis herpetiformis. tTG IgA antibody concentrations greater than 40 U/mL usually correlate with results of duodenal biopsies consistent with a diagnosis of celiac disease. For antibody concentrations greater or equal to 4 U/mL but less than or equal to 40 U/mL, additional testing for endomysial (BARB) IgA concentrations may improve the positive predictive value for disease. Performed By: [employer] [address] [place] [address] Seed Tester: Moisés Moreau MD, PhD Performed By: #### L [id number] #### [facility] ([facility]) [address] [place] [address] [place] 05-27-2023 Refill [id number] Darrian Leal 1970 F Date Provider Department Center 05/27/2023 [facility]AMES [facility] Gerardo Heal No family history on file Reason for Visit and Comments: Med Refill [[id number]] Normal [facility] Telemedici neon 05-22-2023 Behavioral Health Telemedicine [id number] ElvisDarrianMary 1970 Provider Department [place] 05/22/2023 [id number][facility] Gerardo Heal No family history on file Reason for Visit and Comments: Anxiety [9] Pain [136] [facility] Orders Onlyon 05-18-2023 Orders Only [id number] Darrian Leal en 1970 Provider Department [place] 05/18/2023 [facility] Gerardo Heal No family history on file [facility] Behavior[facility] Telemedici neon 05-17-2023 Behavior[facility] Telemedicine [id number] ElvisMary 1970 Provider Department [place] 05/17/2023 [facility]IANA [facility]AMES [facility] Gerardo Heal No family history on file Level of Service:97973 [place] OFFICE/OUTPATIENT ESTABLISHED MOD MDM 30-39 MIN Reason for Visit and Comments: Telehealth Audio/video Visit [871] Normal [facility] Telemedicine [id number] Darrian Lealen 1970 Provider Department [place] 05/17/202343813[facility] Gerardo Heal No family history on file Reason for Visit and Comments: Anxiety [9] MDD (Major Depressive Disorder) [401] [facility] Telemedici neon 04-17-2023 Behavioral Health Telemedicine [id number] Darrian Lealen 1970 Date Provider Department [place] 04/17/2023 [facility] Gerardo Heal No family history on file Reason for Visit and Comments: Therapy [849] Telehealth Audio/video Visit [871] - Via [employer] [facility] Documentationon 04-14-2023 Documentation [id number] Darrian Leal en 1970 Date Provider Department [place] 04/14/2023 [facility] Gerardo Heal No family history on file Reason for Visit and Comments: Transfer summary [Other] - Transferring therapy services Normal [facility] Telemedici neon 04-10-2023 Behavioral Health Telemedicine [id number] Mary Leal 1970 F Date Provider Department [place] 04/10/2023 Yohana-KAILA, [facility] Gerardo Heal No family history on file Reason for Visit and Comments: Therapy [849] Normal [facility] CBC AUTO DIFFon 04-05-2023 BASO # 0.0 103/ul Normal 0.0-0.1 [facility] Comment on above: Performed By: #### L ACT #### [facility] [address] [place] [address] [address] Mirian Velasco Basophils/100 WBC (Bld) 0.8 % Normal 0.2-2.0 [facility] Comment on above: Performed By: #### L ACT #### [facility] [address] [address] [address] Mirian Velasco EO # 0.1 103/ul Normal 0.0-0.7 [facility] Comment on above: Performed By: #### L ACT #### [facility] [address] [address] [address] Mirian Velasco Eosinophils/100 WBC (Bld) 1.1 % Normal 0.9-7.0 [facility] Comment on above: Performed By: #### L ACT #### [facility] [address] [address] [address] Mirian Velasco Erythrocyte distribution wid th (RBC) [Ratio] 13.1 % Normal 11.0-15.0 [facility] Comment on above: Performed By: #### L ACT #### [facility] [address] [address] [address] Mirian Velasco Hematocrit (Bld) [Volume fraction] 37.6 % Normal 3 6.0-48.0 [facility] Comment on above: Performed By: #### L ACT #### [facility] [address] [address] [address] Mirian Velasco Hemoglobin (Bld) [Mass/Vol] 12.4 g/dL Normal 12.0-16. 0 [facility] Comment on above: Performed By: #### L ACT #### [facility] [address] [place] [address] Dr. Mirian Velasco IG # 0.01 10e3/ul Normal 0.00-0.03 [facility] Comment on above: Performed By: #### L ACT #### [facility] [address] [place] [address] Dr. Mirian Velasco IG % 0.2 % Normal 0.0-0.5 [facility] Comment on above: Performed By: #### L ACT #### [facility] [address] [place] [address] Dr. Mirian Velasco LYMPH # 2.5 103/ul Normal 1.2-3.8 [facility] Comment on above: Performed By: #### L ACT #### [facility] [address] [place] [address] Dr. Mirian Velasco Lymphocytes/100 WBC (Bld) 46.2 % Normal 20.5-60.0 [facility] Comment on above: Performed By: #### L ACT #### [facility] [address] [place] [address] Dr. Mirian Velasco MANUAL DIFF REQ NO Normal [facility] Comment on above: Performed By: #### L ACT #### [facility] [address] [place] [address] Dr. Mirian Velasco MCH (RBC) [Entitic mass] 27.1 pg Normal 26.7-34.0 [facility] Comment on above: Performed By: #### L ACT #### [facility] [address] [place] [address] Dr. Mirian Velasco MCHC (RBC) [Mass/Vol] 33.0 g/dL Normal 29.9-35.2 [facility] Comment on above: Performed By: #### L ACT #### [facility] [address] [place] [address] Dr. Mirian Velasco MCV (RBC) [Entitic vol] 82.3 fL Normal 81.0-99.0 [facility] Comment on above: Performed By: #### L ACT #### [facility] [address] [place] [address] Dr. Mirian Velasco MONO # 0.4 103/ul Normal 0.3-0.8 The [facility]spital Comment on above: Performed By: #### L ACT #### [facility] [address] [place] [address] Dr. Mirina Velasco Monocytes/100 WBC (Bld) 7.9 % Normal 1.7-12.0 [facility] Comment on above: Performed By: #### L ACT #### [facility] [address] [place] [address] Dr. Mirian Velasco NEUT # 2.3 103/ul Normal 1.4-6.5 The [facility] Comment on above: Performed By: #### L ACT #### [facility] [address] [place] [address] Dr. Mirian Velasco Neutrophils/100 WBC (Bld) 43.8 % Normal 43.0-75.0 [facility] Comment on above: Performed By: #### L ACT #### [facility] [address] [place] [address] Dr. Mirian Velasco Platelet mean volume (Bld) [Entitic vol] 9.2 fL Critically low 9.5-13.5 [facility] Comment on above: Performed By: #### L ACT #### [facility] [address] [place] [address] Dr. Mirian Velasco PLT 318 103/ul Normal 150-450 The [facility] Comment on above: Performed By: #### L ACT #### [facility] [address] [place] [address] Dr. Mirian Velasco RBC 4.57 106/ul Normal 4.20-5.40 The [facility] Comment on above: Performed By: #### L ACT #### [facility] [address] [place] [address] Dr. Mirian Velasco WBC 5.3 103/ul Normal 4.0-11.0 The [facility] Comment on above: Performed By: #### L ACT #### [facility] [address] [address] [address] Mirian Velasco PROF CHEM 8 (BAS METB)on Anion gap [Moles/Vol] 19.0 mmol/L Normal Th [facility] Comment on above: Performed By: #### H STROPN, BMP ####[facility] [address] [address]Dr. Mirian Velasco Calcium [Mass/Vol] 9.6 mg/dL Normal 8.5-10.1 [facility] Comment on above: Performed By: #### H STROPN, BMP ####[facility] [address] [address]DrReno Velasco Chloride [Moles/Vol] 103 mmol/L Normal 98-107 [facility] Comment on above: Performed By: #### H STROPN, BMP ####[facility] [address] [address]DrReno Velasco CO2 [Moles/Vol] 23.1 mmol/L Normal 21.0-32.0 [facility] Comment on above: Performed By: #### H STROPN, BMP ####[facility] [address] [place] [address]DrReno Velasco Creatinine [Mass/Vol] 0.84 mg/dL Normal 0.55-1.02 [facility] Comment on above: Performed By: #### H STROPN, BMP ####[facility] [address] [place] [id number]. Mirian Velasco EGFR-AF INDONESIAN >60 Normal >=60 [facility] Comment on above: Performed By: #### H STROPN, BMP ####[facility] [address] [place] [id number]. Mirian Velasco EGFR-NON AF INDONESIAN >60 Normal >=60 [facility] Comment on above: Performed By: #### H STROPN, BMP ####[facility] [address] [address]DrReno Velasco Glucose [Mass/Vol] 129 mg/dL Critically high 74-106 T [facility] Comment on above: Performed By: #### H FAUSTO, BMP ####[facility] [address] [address]Dr. Mirian Velasco Potassium [Moles/Vol] 3.1 mmol/L Critically low 3.5-5.1 [facility] Comment on above: Performed By: #### H FAUSTO, BMP ####[facility] [address] [place] [address]Dr. Mirian Velasco Sodium [Moles/Vol] 142 mmol/L Normal 136-145 [facility] Comment on above: Performed By: #### H FAUSTO, BMP ####[facility] [address] [place] [address]Dr. Mirian Velasco Urea nitrogen [Mass/Vol] 12.0 mg/dL Normal 7.0-18.0 [facility] Comment on above: Performed By: #### Sukumar LAMBERT, BMP ####[facility] [address] [place], [place] [address]Dr. Mirian Velasco Urea nitrogen/Creatinine [Mass ratio] 14.3 mg/mg Normal [facility] Comment on above: Performed By: #### Sukumar LAMBERT, BMP ####[facility] [address] [place], [place] [address]Dr. Mirian Velasco TROPONIN, HIGH SENSITIVITYon 04-05-2023 HSTROP 5.6 pg/mL Normal 4.0-51.3 The [facility] ostal Comment on above: Result Comment: CUT- OFF POINTS HAVE BEEN ESTABLISHED BASED ON THE FOURTH UNIVERSAL DEFINITIONS OF MYOCARDIAL INFARCTION. THE UPPER REFERENCE LIMIT (URL) OF TROPONIN, DEFINED THE 99TH PERCENTILE OF cTnI DISTRIBUTION IN A REFERENCE POPULATION, HAS BEEN CONFIRMED THE DECISION THRESHOLD FOR [place] DIAGNOSIS. Performed By: #### H FAUSTO, BMP ####[facility] [address] [address]Dr. Mirian Velasco Refillon 03-21-2023 Refill [id number] Darrian Leal 1970 Date Provider Department Center 03/21/2023 GIANA JAMES [facility] Gerardo Heal No family history on file Reason for Visit and Comments: Med Refill [254449] Normal [facility] Telemedici neon 03-20-2023 Behavioral Health Telemedicine [id number] [place] Lealisten 1970 Provider Department Center 03/20/2023 YohanaCARMEN GALINDO [facility] Gerardo [facility] No family history on file Reason for Visit and Comments: Therapy [849] Normal [facility] FAT, FECAL QUALon 03-16-2023 FAT, FECAL - NEUTRAL Normal Normal Normal [facility] Comment on above: Order Comment: Speci men Type: STOOL SPECIMENOrdering Facility: [facility] Address: [address] [place] [address] Performed By: #### F FATQL ####[facility] [id number] [place] [address] FAT, FECAL - SPLIT Normal Normal Normal [facility] Comment on above: Order Comment: Speci men Type: STOOL SPECIMENOrdering Facility: [facility] Address: [address] [place] [address] Result Comment: INTE RPRETIVE INFORMATION: Fecal Fat Qualitative Neutral fats include the monoglycerides, diglycerides, and triglycerides while split fats are the free fatty acids that are liberated from them. Impaired synthesis or secretion of pancreatic enzymes or bile may cause an increase in neutral fats while an increase in split fats suggests impaired absorption of nutrients. Performed By: [employer] [address] [place] [address] Seed Tester: Moisés Moreau MD, PhD Performed By: #### F FATQL ####[facility] [id number] [place] [address] Behavioral Health Telemedici neon 03-06-2023 [facility] Tele[facility]icine [id number] [place] Lealisten 1970 F Date Provider Department Center 03/06/2023 [facility] No family history on file Reason for Visit and Comments: Therapy [849] Normal [facility] CBC AUTO DIFFon 03-06-2023 BASO # 0.1 103/ul Normal 0.0-0.[address] [facility] Comment on above: Performed By: #### L ACT #### [facility] [address] [place] [address] Dr. Mirian Velasco Basophils/100 WBC (Bld) 0.8 % Normal 0.2-2.0 [facility] Comment on above: Performed By: #### L ACT #### [facility] [address] [place] [address] Dr. Mirian Velasco EO # 0.1 103/ul Normal 0.0-0.7 [facility] Comment on above: Performed By: #### L ACT #### [facility] [address] [place] [address] Dr. Mirian Velasco Eosinophils/100 WBC (Bld) 1.4 % Normal 0.9-7.0 [facility] Comment on above: Performed By: #### L ACT #### [facility] [address] [place] [address] Dr. Mirian Velasco Erythrocyte distribution wid th (RBC) [Ratio] 13.1 % Normal 11.0-15.0 The [facility] Comment on above: Performed By: #### L ACT #### [facility] [address] [place] [address] Dr. Mirian Velasco Hematocrit (Bld) [Volume fraction] 37.9 % Normal 3 6.0-48.0 [facility] Comment on above: Performed By: #### L ACT #### [facility] [address] [place] [address] Dr. Mirian Velasco Hemoglobin (Bld) [Mass/Vol] 12.7 g/dL Normal 12.0-16. 0 [facility] Comment on above: Performed By: #### L ACT #### [facility] [address] [place] [address] Dr. Mirian Velasco IG # 0.01 10e3/ul Normal 0.00-0.03 The [facility] Comment on above: Performed By: #### L ACT #### [facility] [address] [place] [address] Dr. Mirian Velasco IG % 0.2 % Normal 0.0-0.5 The [facility] ostal Comment on above: Performed By: #### L ACT #### [facility] [address] [place] [address] Dr. Mirian Velasco LYMPH # 1.8 103/ul Normal 1.2-3.8 The [facility] Comment on above: Performed By: #### L ACT #### [facility] [address] [place] [address] Dr. Mirian Velasco Lymphocytes/100 WBC (Bld) 27.2 % Normal 20.5-60.0 [facility] Comment on above: Performed By: #### L ACT #### [facility] [address] [place] [address] Dr. Mirian Velasco MANUAL DIFF REQ NO Normal [facility] Comment on above: Performed By: #### L ACT #### [facility] [address] [place] [address] Dr. Mirian Velasco MCH (RBC) [Entitic mass] 27.5 pg Normal 26.7-34.0 [facility] Comment on above: Performed By: #### L ACT #### [facility] [address] [place] [address] Dr. Mirian Velasco MCHC (RBC) [Mass/Vol] 33.5 g/dL Normal 29.9-35.2 [facility] Comment on above: Performed By: #### L ACT #### [facility] [address] [place] [address] Dr. Mirian Velasco MCV (RBC) [Entitic vol] 82.0 fL Normal 81.0-99.0 [facility] Comment on above: Performed By: #### L ACT #### [facility] [address] [place] [address] Dr. Mirian Velasco MONO # 0.4 103/ul Normal 0.3-0.8 The [facility] Comment on above: Performed By: #### L ACT #### [facility] [address] [place] [address] Dr. Mirian Velasco Monocytes/100 WBC (Bld) 5.5 % Normal 1.7-12.0 [facility] Comment on above: Performed By: #### L ACT #### [facility] [address] [place] [address] Dr. Mirian Velasco NEUT # 4.3 103/ul Normal 1.4-6.5 The [facility] Comment on above: Performed By: #### L ACT #### [facility] [address] [place] [address] Dr. Mirian Velasco Neutrophils/100 WBC (Bld) 64.9 % Normal 43.0-75.0 [facility] Comment on above: Performed By: #### L ACT #### [facility] [address] [place] [address] Dr. Mirian Velasco Platelet mean volume (Bld) [Entitic vol] 9.4 fL Critically low 9.5-13.5 The [facility] pital Comment on above: Performed By: #### L ACT #### [facility] [address] [place] [address] Dr. Mirian Velasco PLT 317 103/ul Normal 150-450 The [facility] ostal Comment on above: Performed By: #### L ACT #### [facility] [address] [place] [address] Dr. Mirian Velasco RBC 4.62 106/ul Normal 4.20-5.40 [facility] Comment on above: Performed By: #### L ACT #### [facility] [address] [place], [place] [id number] Dr. Mirian Velasco WBC 6.6 103/ul Normal 4.0-11.0 The [facility] Comment on above: Performed By: #### L ACT #### [facility] [address] [place], [place] [id number] Dr. Mirian Velasco CULTURE BLOODon 03-06-2023 Microscopic examination of blood, culture Culture Observations: NO GROWTH AT 5 DAYS. [facility] Comment on above: Performed By: #### B LDCX2 ####[facility] [address] [place], [place] [address]Dr. Mirian Velasco Microscopic examination of blood, culture Culture Observations: NO GROWTH AT 5 DAYS. Normal The [facility] Comment on above: Performed By: #### B LDCX1 #### [facility] [address] [place] [address] Dr. Mirian Velasco LACTATE/LACTIC ACIDon 2022 Lactate [Moles/Vol] 2.2 mmol/L Critically high 0.4-2.0 [facility] Comment on above: Performed By: #### L ACT #### [facility] [address] [place] [address] Dr. Mirian Velasco LIPASEon 03-06-2023 Lipase [Catalytic activity/Vol] 53.0 U/L Critically low 73.0-393.0 [facility] Comment on above: Performed By: #### L ACT #### [facility] [address] [place] [address] Dr. Mirian Velasco PROF 14(COMP METB)on 023 Albumin [Mass/Vol] 3.4 g/dL Normal 3.4-5.0 [facility] Comment on above: Performed By: #### L ACT #### [facility] [address] [place] [address] Dr. Mirian Velasco Albumin/Globulin [Mass ratio] 1.0 {ratio} Normal [facility] Comment on above: Performed By: #### L ACT #### [facility] [address] [place] [address] Dr. Mirian Velasco ALP [Catalytic activity/Vol] 123 U/L Critically high 46 -116 [facility] Comment on above: Performed By: #### L ACT #### [facility] [address] [place] [address] Dr. Mirian Velasco ALT [Catalytic activity/Vol] 33 U/L Normal 14-59 [facility] Comment on above: Performed By: #### L ACT #### [facility] [address] [place] [address] Dr. Mirian Velasco Anion gap [Moles/Vol] 13.1 mmol/L Normal [facility] Comment on above: Performed By: #### L ACT #### [facility] [address] [address] [address] Mirian Velasco AST [Catalytic activity/Vol] 31 U/L Normal 15-37 [facility] Comment on above: Performed By: #### L ACT #### [facility] [address] [address] [address] Mirian Velasco Bilirubin [Mass/Vol] 0.3 mg/dL Normal 0.2-1.0 [facility] Comment on above: Performed By: #### L ACT #### [facility] [address] [address] [address] Mirian Velasco Calcium [Mass/Vol] 8.9 mg/dL Normal 8.5-10.1 [facility] Comment on above: Performed By: #### L ACT #### [facility] [address] [address] [address] Mirian Velasco Chloride [Moles/Vol] 107 mmol/L Normal 98-107 [facility] Comment on above: Performed By: #### L ACT #### [facility] [address] [address] [address] Mirian Velasco CO2 [Moles/Vol] 25.6 mmol/L Normal 21.0-32.0 [facility] Comment on above: Performed By: #### L ACT #### [facility] [address] [address] [address] Mirian Velasco Creatinine [Mass/Vol] 0.70 mg/dL Normal 0.55-1.02 [facility] Comment on above: Performed By: #### L ACT #### [facility] [address] [address] [address] Mirian Velasco EGFR-AF INDONESIAN >60 Normal >=60 [facility] Comment on above: Performed By: #### L ACT #### [facility] [address] [address] [address] Mirian Velasco EGFR-NON AF INDONESIAN >60 Normal >=60 [facility] Comment on above: Performed By: #### L ACT #### [facility] [address] [address] [address] Mirian Velasco Globulin (S) [Mass/Vol] 3.4 g/dL Normal [facility] Comment on above: Performed By: #### L ACT #### [facility] [address] [address] [address] Mirian Velasco Glucose [Mass/Vol] 125 mg/dL Critically high 74-106 [facility] Comment on above: Performed By: #### L ACT #### [facility] [address] [address] [address] Mirian Velasco Potassium [Moles/Vol] 3.7 mmol/L Normal 3.5-5.1 [facility] Comment on above: Performed By: #### L ACT #### [facility] [address] [place] [address] Dr. Mirian Velasco Protein [Mass/Vol] 6.8 g/dL Normal 6.4-8.2 [facility] Comment on above: Performed By: #### L ACT #### [facility] [address] [place] [address] Dr. Mirian Velasco Sodium [Moles/Vol] 142 mmol/L Normal 136-145 [facility] Comment on above: Performed By: #### L ACT #### [facility] [address] [place] [address] Dr. Mirian Velasco Urea nitrogen [Mass/Vol] 16.0 mg/dL Normal 7.0-18.0 [facility] Comment on above: Performed By: #### L ACT #### [facility] [address] [address] [address] Mirian Velasco Urea nitrogen/Creatinine [Mass ratio] 22.9 mg/mg Normal [facility] Comment on above: Performed By: #### L ACT #### [facility] [address] [place] [address] Dr. Mirian Velasco PROTIMEon 03-06-2023 INR Coag (PPP) [Relative time] {INR} Normal [facility] Comment on above: Performed By: #### P T #### [facility] [address] [place] [address] Dr. Mirian Velasco INR GUIDELINES SEE BELOW Normal The [facility] Comment on above: Result Comment: SAMEER RED INR: 2.0 - 3.0 CONDITIONS NOT LISTED BELOW 2.5 - 3.5 FOR PROSTHETIC HEART VALVE REPLACEMENT 2.5 - 3.5 RECURRENT THROMBOSIS Performed By: #### P T #### [facility] [address] [address] [address] Mirian Velasco PT Coag (PPP) [Time] 9.8 s Normal 9.0-11.6 [facility] Comment on above: Performed By: #### P T #### [facility] [address] [address] [address] Mirian Velasco TROPONIN, HIGH SENSITIVITYon 03-06-2023 HSTROP 4.4 pg/mL Normal 4.0-51.3 The [facility] Comment on above: Result Comment: CUT- OFF POINTS HAVE BEEN ESTABLISHED BASED ON THE FOURTH UNIVERSAL DEFINITIONS OF MYOCARDIAL INFARCTION. THE UPPER REFERENCE LIMIT (URL) OF TROPONIN, DEFINED THE 99TH PERCENTILE OF cTnI DISTRIBUTION IN A REFERENCE POPULATION, HAS BEEN CONFIRMED THE DECISION THRESHOLD FOR [place] DIAGNOSIS. Performed By: #### L ACT #### [facility] [address] [address] [address] Mirian Velasco Bacteria identified Aer cx N om (Unsp spec)Ordered By: Niecy Duron on 03-02-2023 Superficial Wound Culture Methicillin Re sis Staph Aureus [facility] Superficial Wound Cultureon 03-02-2023 Superficial Wound Culture ORGANISM: Methicillin Resis Staph Aureus (O:MRSA) Quantity of Growth Heavy Growth Aerobic CORRINA Charge (PCMIC38) SUSCEPTIBILITY ORGANISM: O:MRSA ANTIBIOTIC INTERPRETATION CORRINA Azithromycin S <2 Ceftaroline S <0.5 Ciprofloxacin S <1 Clindamycin S 0.5 Daptomycin S 1 Linezolid S 4 Oxacillin R >2 Penicillin R 2 Tetracycline S <4 Trimethoprim/Sulfamethoxazole S <0.5 Vancomycin S 2 S = SUSCEPTIBLE I = INTERMEDIATE R = RESISTANT BLANK = DATA NOT AVAILABLE, OR DRUG NOT ADVISABLE OR TESTED R* = RESISTANCE DUE TO EXTENDED SPECTRUM BETA-LACTAMASES ESBL = EXTENDED SPECTRUM BETA-LACTAMASE TFG = THYMIDINE-DEPENDENT STRAIN ISSAC = BETA-LACTAMASE POSITIVE IB = INDUCIBLE BETA-LACTAMASE. APPEARS IN PLACE OF 'S' WITH SPECIES KNOWN TO POSSESS INDUCIBLE BETA-LACTAMASES. POTENTIALLY THEY MAY BECOME RESISTANT TO ALL B-LACTAM DRUGS. PERFORMED BY: [place] [address] PATHOLOGIST SUSTAINABILITY OFFICER LEVAR CASE M.D. [facility] Comment on above: Performed By: #### T 4T, ESR, URIC, CRP, TSH3 #### [place] [address] [place] #### RA, CHUYITA #### [facility] , Clinical Supporton 3 Clinical Support [id number] Darrian Leal 1970 Date Provider Department [place] [facility] No family history on file Reason for Visit and Comments: Therapy [849] [facility] 36on 02-20-2023 36 I just sent the scri pt over and signed her note. [facility] Behavioral Health Telemedici neon 02-20-2023 Behavioral Health Telemedicine [id number] Mary Leal 1970 Provider Department [place] 02/20/2023 CARMEN CHRISTIANSON [facility] Gerardo Pool No family history on file Reason for Visit and Comments: Therapy [849] [facility] CT LSPINE WO CONon 3 CT LSPINE WO CON EXAM: CT scan of the lumbar spine without contrast. Dose reduction technique used: Automated exposure control and/or adjustment of the mA and/or kV according to patient size and/or use of iterative reconstruction technique. REASON FOR EXAM: Back pain COMPARISON: CT scan dated 10/20/2022 FINDINGS: No lumbar spine fractures or malalignment. Mild lumbar spine degenerative changes with preserved intervertebral disc heights. No substantial spinal canal or neural foraminal stenoses. Small sclerotic lesion in the L1 vertebral body is not significantly changed and is likely benign. Remainder unremarkable. IMPRESSION: No acute lumbar spine abnormalities. Electronically authenticated by: NANCY BELLE Date: 2023-02-19 06:42 Normal [facility] 36on 02-17-2023 36 Android Framework Developer spoke with rigoberto montemayor in regards to lunesta, patient reports Giana was increasing the lunesta to 3mg, remote mortgage underwriter read last note plan reports 2mg lunesta. Android Framework Developer will attempt to contact Giana Morales. Android Framework Developer is covering while Giana is out of the clinic. Normal [facility] 36 Patient needs Lunest a sent to [facility] in [place]. Had an appt yesterday with you, and pharmacy does not have. Normal [facility] Telephoneon 02-17-2023 Telephone [id number] ElvisDarrian en 1970 F Date Provider Department Center 02/17/2023 GIANA JAMES [facility] Gerardo Heal No family history on file Reason for Visit and Comments: Medication Question [827] - Pt is upset that her Lunesta has not been increased as discussed. Normal [facility] Telephone [id number] Darrian Leal en 1970 F Date Provider Department Center 02/17/2023 PONCE MCKEON [facility] Gerardo Heal No family history on file [facility] Behavioral Health Telemedici neon 02-16-2023 Behavioral Health Telemedicine [id number] Mary Leal 1970 Date Provider Department Center 02/16/2023 GIANA JAMES [facility] Gerardo Heal No family history on file Level of Service:30363 [place] OFFICE/OUTPATIENT ESTABLISHED MOD MDM 30-39 MIN Reason for Visit and Comments: Telehealth Audio/video Visit [871] - [email or web address] or [email or web address] Normal [facility] Behavioral Health Telemedici neon 02-13-2023 Behavioral Health Telemedicine [id number] Mary Leal 1970 F Date Provider Department Center 02/13/2023 [id number] GALINDO [facility] Gerardo Heal No family history on file Reason for Visit and Comments: Therapy [849] - Normal [facility] Behavioral Health Telemedici neon 02-06-2023 Behavioral Health Telemedicine [id number] Mary Leal 1970 Provider Department Center 02/06/2023 CARMEN CHRISTIANSON [facility] No family history on file Reason for Visit and Comments: Therapy [849] [facility] Behavioral Health Telemedici neon 02-02-2023 Behavioral Health Telemedicine [id number] Mary Leal 1970 Provider Department Center 02/02/2023 GIANA JAMES [facility] No family history on file Level of Service:15903 [place] OFFICE/OUTPATIENT ESTABLISHED MOD MDM 30-39 MIN Reason for Visit and Comments: Telehealth Audio/video Visit [871] - [email or web address] or [email or web address] Behavioral Health Telemedici neon 01-23-2023 Behavioral Health Telemedicine [id number] Mary Leal 1970 Provider Department Center 01/23/2023 CARMEN CHRISTIANSON [facility] No family history on file Reason for Visit and Comments: Therapy [849] [facility] 36on 01-16-2023 36 Spoke with pt to con firm her appointment this morning was cancelled per her request. Pt stated she wasn't feeling well. Her next appointment is scheduled for 01/23/23. [facility] 36 Patient called and w ants a return call from provider. [facility] Hussain 01-16-2023 MARIAN Telephone (BHAVIN) MARY LEAL ([id number]) 1970 F Date Time Provider Department 01/16/23 MOUNIKA HERNANDEZ During your visit today, we recorded the following information about you: Mounika Hernandez PA-C 01/16/2023 1:09 PM Signed Patient was scheduled for virtual PACC appt at 1300 today. Patient did not check in for visit. Called patient at [phone] to see if they needed any assistance logging in and left voicemail. This message routed to PACC schedulers to contact patient to reschedule PACC appt. Mounika Hernandez PA-C January 16, 2023 1:09 PM Allergies As of Date: 01/16/2023 Noted Allergy Reaction RISPERIDONE 07/27/2021 5 - Intolerance Comments: Breast discharge Date Reviewed: 12/15/2022 Reviewed by: Mary Obrien MD - Fully Assessed Reason for Visit: Appointment [186] Cmt: Pt has not arrived for her 1 pm appointment Prescriptions as of 01/16/2023 - sucralfate (CARAFATE) 100 mg/mL suspension Take 10 mL by mouth twice daily. - Cholecalciferol, Vitamin D3, 25 mcg (1,000 unit) cap Take 1,000 Units by mouth once daily. - cyanocobalamin (VITAMIN B-12) 1,000 mcg tab Take 1,000 mcg by mouth once daily. - cyclobenzaprine (FLEXERIL) 10 mg tablet Take by mouth three times daily. - galcanezumab-gnlm (EMGALITY SYRINGE) 120 mg/mL syringe Inject subcutaneously once every month. Do not shake. - Dexlansoprazole 60 mg CpDM take 1 capsule by mouth before breakfast - Simethicone (GAS RELIEF, SIMETHICONE,) 125 mg chewable tablet Take 2 tablets by mouth three times daily as needed. - traZODone (DESYREL) 50 mg tablet Take 150 mg by mouth daily at bedtime. - atorvastatin (LIPITOR) 20 mg tablet Take 20 mg by mouth once daily. - rOPINIRole (REQUIP) 2 mg tablet Take 2 mg by mouth twice daily. Takes 2 mg in the AM and 4 mg PM - nibljiiuhgs-udndgbbto-ylsdwlhz (TRELEGY ELLIPTA) 100-62.5-25 mcg Inhale 1 Puff as instructed once daily. 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] 08/04/2021 Asthma [J45.909] GERD (gastroesophageal reflux disease) [K21.9] History of 2019 novel coronavirus disease (COVI* Pelvic floor dysfunction [M62.89] 12/24/2021 Lack of coordination [R27.9] 01/18/2022 Follow-up examination after colorectal surgery *01/18/2022 Chronic idiopathic constipation [K59.04] 03/15/2022 Chronic constipation [K59.09] 03/28/2022 CHUCKIE (obstructive sleep apnea) [G47.33] 11/21/2022 Nausea [R11.0] 11/30/2022 Encounter Status:Closed by MOUNIKA HERNANDEZ on 01/16/23 [facility] HISTORY PHYSICALon HISTORY PHYSICAL HNO ID: [id number] Author: Mounika Hernandez PA-C Service: ? Author Type: Physician Back Filler Operator Type: HANDP Filed: 01/16/2023 1:24 PM Note Text: This is a virtual visit using Immusoft video visit. It required patient-provider interaction for the medical decision making as documented below. I have communicated my name and active licensure. The patient's identity and physical location were verified at the time of this visit. Either the patient or their legal merchandising representative has been informed of the risks and benefits of and alternatives to treatment through a remote evaluation and consents to proceed with the evaluation remotely. Surgeon: Winston Hannah DO Type of surgery: GEN SURG: POP Patient scheduled for surgery on 02/08/23 . Surgery Location: [facility] Diagnosis: Preop examination (primary encounter diagnosis) Nausea Chuckie (obstructive sleep apnea) Mild persistent asthma without complication Gastroesophageal reflux disease, unspecified whether esophagitis present Gastroparesis Ht 5' 4 (1.63m) Wt 150 lb (68.0kg) BMI 25.73 kg/(m2). HANDP completed: 01/10/[address] Hannah Social History Tobacco Use Smoking status: Never Smokeless tobacco: Never Substance Use Topics Alcohol use: Never Drug use: Never sucralfate (CARAFATE) 100 mg/mL suspension Take 10 mL by mouth twice daily. Cholecalciferol, Vitamin D3, 25 mcg (1,000 unit) cap Take 1,000 Units by mouth once daily. cyanocobalamin (VITAMIN B-12) 1,000 mcg tab Take 1,000 mcg by mouth once daily. cyclobenzaprine (FLEXERIL) 10 mg tablet Take by mouth three times daily. galcanezumab-gnlm (EMGALITY SYRINGE) 120 mg/mL syringe Inject subcutaneously once every month. Do not shake. Dexlansoprazole 60 mg CpDM take 1 capsule by mouth before breakfast Simethicone (GAS RELIEF, SIMETHICONE,) 125 mg chewable tablet Take 2 tablets by mouth three times daily as needed. traZODone (DESYREL) 50 mg tablet Take 150 mg by mouth daily at bedtime. atorvastatin (LIPITOR) 20 mg tablet Take 20 mg by mouth once daily. rOPINIRole (REQUIP) 2 mg tablet Take 2 mg by mouth twice daily. Takes 2 mg in the AM and 4 mg PM twnqguukveg-auadofdtf-zrjzasvs (TRELEGY ELLIPTA) 100-62.5-25 mcg Inhale 1 Puff as instructed once daily. ALLERGIES Allergen Reactions Risperidone Intolerance Breast discharge COVID VACCINATION STATUS: Fully vaccinated PHYSICAL EXAMINATION: Alert and oriented, No acute distress, Healthy appearance Unlabored on room air Laboratory and Testing: Hemoglobin A1C (%) Date Value 06/10/2021 5.9 EKG READING: EKG not indicated OTHER TESTS: N/A ANESTHESIOLOGY REVIEW: MOUTH OPENING/TMJ : Full jaw ROM MICROGNATHIA/OVERBITE: no MP SCORE: MP 2 UPPER LIP BITE TEST: Class I - Lower incisors can bite the upper lip above the shaheen line DENTITION: Intact THYROMENTAL DIST: WNL SHORT NECK: No NECK FLEX: Full ROM NECK EXTENSION: Full ROM INTUBATION HISTORY: history of general anesthesia without difficulty ADVERSE ANESTHESIA EVENT: no history of adverse event ANESTHETIC OPTIONS: Final anesthesia management options will be discussed on day of surgery. PAIN MANAGEMENT OPTIONS: Final pain management plan will be discussed on the day of surgery. OPTIMIZATION STATUS: Patient optimized for OR, pending DOS review. ASA Class: 3 Mounika Hernandez PA-C January 16, 2023 12:[address] PM [address] [facility] Telephoneon 01-16-2023 Telephone [id number] Darrian Leal en 1970 Date Provider Department Center 01/16/2023 Yohana-CARMEN DORSEY [facility] No family history on file Reason for Visit and Comments: Appointment [375] Normal [facility] Telephone [id number] Darrian Leal en 1970 Provider Department [place] 01/16/2023 IngrisSE [facility] No family history on file [facility] CNPNon 01-11-2023 CNPN Telephone (GENSSP) MARY LEAL ([id number]) 1970 Date Time Provider Department 01/11/23 WINSTON HANNAH GENSHAKIR During your visit today, we recorded the following information about you: Berta Ann RN 01/11/2023 10:08 AM Signed Procedure pended for 02/08/23. Pt aware of need for PACC. Pre-op instructions reviewed, will send to pt's [facility], per pt request. Post op appt scheduled. No other questions at this time. Berta HENSON, RN Specialty Banquet Coordinator Allergies As of Date: 01/11/2023 Noted Allergy Reaction RISPERIDONE 07/27/2021 5 - Intolerance Comments: Breast discharge Date Reviewed: 12/15/2022 Reviewed by: Mary Obrien MD - Fully Assessed Reason for Visit: Schedule Procedure [Other] Primary Visit Diagnosis:Gastroparesis [K31.84] Order(s):EGD - THERAPEUTIC, EUS, OR TUBE INTERVENTIONS [GI2] Order #: [id number] FUTURE Prescriptions as of 01/11/2023 - sucralfate (CARAFATE) 100 mg/mL suspension Take 10 mL by mouth twice daily. - Cholecalciferol, Vitamin D3, 25 mcg (1,000 unit) cap Take 1,000 Units by mouth once daily. - cyanocobalamin (VITAMIN B-12) 1,000 mcg tab Take 1,000 mcg by mouth once daily. - cyclobenzaprine (FLEXERIL) 10 mg tablet Take by mouth three times daily. - galcanezumab-gnlm (EMGALITY SYRINGE) 120 mg/mL syringe Inject subcutaneously once every month. Do not shake. - Dexlansoprazole 60 mg CpDM take 1 capsule by mouth before breakfast - Simethicone (GAS RELIEF, SIMETHICONE,) 125 mg chewable tablet Take 2 tablets by mouth three times daily as needed. - traZODone (DESYREL) 50 mg tablet Take 150 mg by mouth daily at bedtime. - atorvastatin (LIPITOR) 20 mg tablet Take 20 mg by mouth once daily. - rOPINIRole (REQUIP) 2 mg tablet Take 2 mg by mouth twice daily. Takes 2 mg in the AM and 4 mg PM - eroggmbqdwi-dgdcpvgcd-cjurhmek (TRELEGY ELLIPTA) 100-62.5-25 mcg Inhale 1 Puff as instructed once daily. Problem List As Of Date 01/11/2023 Noted Resolved Impingement syndrome of right shoulder [M75.41] 09/29/2020 Arthritis of right acromioclavicular joint [M19*09/29/2020 Partial nontraumatic rupture of right rotator c*09/29/2020 HTN (hypertension) [I10] Gastroparesis [K31.84] Esophageal dysphagia [R13.19] Bipolar 1 disorder (HCC) [F31.9] Obesity (BMI 30.0-34.9) [E66.9] Status post arthroscopy of right shoulder [Z98.*01/22/2021 Sleep disturbance- chronic [G47.9] 08/04/2021 Genitourinary syndrome of menopause [N95.8] 08/04/2021 Asthma [J45.909] GERD (gastroesophageal reflux disease) [K21.9] History of 2019 novel coronavirus disease (COVI* Pelvic floor dysfunction [M62.89] 12/24/2021 Lack of coordination [R27.9] 01/18/2022 Follow-up examination after colorectal surgery *01/18/2022 Chronic idiopathic constipation [K59.04] 03/15/2022 Chronic constipation [K59.09] 03/28/2022 CHUCKIE (obstructive sleep apnea) [G47.33] 11/21/2022 Nausea [R11.0] 11/30/2022 Encounter Status:Closed by WINSTON HANNAH on 01/11/[address] [facility] Refillon 01-11-2023 Refill [id number] Darrian Leal en 1970 Date Provider Department Center 01/11/2023 GIANA JAMES [facility] Gerardo Heal No family history on file Reason for Visit and Comments: Med Refill [[id number]] Normal [facility] Behavioral Health Telemedici neon 01-06-2023 Behavioral Health Telemedicine [id number] Darrian Lealen 1970 Provider Department Center 01/06/2023 ANNETTE BRYAN [facility] No family history on file Level of Service:09222 [place] OFFICE/OUTPATIENT ESTABLISHED LOW MDM 20-29 MIN Reason for Visit and Comments: Telehealth Audio/video Visit [871] Normal [facility] Refillon 01-03-2023 Refill [id number] Denver Lealist en 1970 Date Provider Department Center 01/03/2023 ANNETTE BRYAN [facility] He[facility] No family history on file Reason for Visit and Comments: Med Refill [[id number]] Normal [facility] Behavioral Health Telemedici neon 01-02-2023 Behavioral Health Telemedicine [id number] Denver Lealisten 1970 Date Provider Department Center 01/02/2023 CARMEN CHRISTIANSON [facility] Gerardo Heal No family history on file Reason for Visit and Comments: Therapy [849] Telehealth Audio/video Visit [871] - WebEx Normal [facility] XR ESOPHAGRAMon 12-26-2022 XR ESOPHAGRAM * * *Final Report* * * DATE OF EXAM: Dec 26 2022 3:15PM HGX [id number] - XR ESOPHAGRAM / PROCEDURE REASON: Gastroesophageal reflux disease, unspecified whether esophagitis present * * * * Physician Interpretation * * * * ESOPHAGRAM CLINICAL INFORMATION: Dysphagia. GERD. TECHNIQUE: A biphasic examination of the esophagus was performed utilizing effervescent granules (E-Z-Gas II - 4 grams), high density barium, and low density barium. Contrast: ORAL: 125 ml of EZHD ORAL: 250 ml of EZPAQUE ORAL: EZ DISK Fluoroscopy radiation summary: Fluoroscopy time: 3:54 (min:sec). Air kerma: 34.3 mGy. RESULT: Caliber: Normal. Stricture, Ring, or Web: None. Motility: Normal. Hiatal Hernia: Absent. Gastroesophageal Reflux: Small volume, rapidly clearing (<30 seconds), which reproduced symptoms of burning. Gastric Cardia: Normal. Barium Tablet: Briefly impeded at the level of the aortic arch and the esophagogastric junction, passes with additional sips of water and thin barium without obstruction. Other Findings: None. Staff Physician: Tariq Miller M.D. was present for the critical portions of the procedure and was immediately available throughout the remainder of the procedure. IMPRESSION: SMALL VOLUME GASTROESOPHAGEAL REFLUX. Cable Worker Helper: CAPRI Transcribe Date/Time: Dec 26 2022 3:20P Dictated by : MERISSA AGARWAL DO This examination was interpreted and the report reviewed and electronically signed by: TARIQ MILLER MD on Dec 26 2022 3:25PM EST [id number] Normal [facility] ic Behavioral Health Telemedici neon 12-12-2022 Behavioral Health Telemedicine [id number] Mary Leal 1970 F Date Provider Department Center 12/12/2022 Keith1-CARMEN DORSEY [facility] Heal No family history on file Reason for Visit and Comments: Therapy [849] Normal [facility] Behavioral Health Telemedici neon 12-09-2022 Behavioral Health Telemedicine [id number] Mary Leal 1970 F Date Provider Department Center 12/09/2022 ANNETTE BRYAN [facility] No family history on file Level of Service:44241 [place] OFFICE/OUTPATIENT ESTABLISHED MOD [facility] 30-39 MIN Reason for Visit and Comments: Telehealth Audio/video Visit [001] - [email or web address] [facility] CNPNon 12-09-2022 CNPN Telephone ([facility]) MARY LEAL ([id number]) 1970 F Date Time Provider Department 12/09/22 MARY OBRIEN [facility] During your visit today, we recorded the following information about you: Madyson Villanueva Pss 12/09/2022 3:23 PM Signed Patient called and left message regarding post operative 03/2022 total laparoscopic colectomy and concerns regarding symptoms and follow up testing return call to [phone] See Wong RN 12/12/2022 9:[address] Obrien sent my chart message to respond to this phone encounter and previous my chart message. Allergies As of Date: 12/09/2022 Noted Allergy Reaction RISPERIDONE 07/27/2021 5 - Intolerance Comments: Breast discharge Date Reviewed: 12/07/2022 Reviewed by: Marley Mitchell, MAKI - Fully Assessed Reason for Visit: Patient Question [6546] Prescriptions as of 12/12/2022 - sucralfate (CARAFATE) 100 mg/mL suspension Take 10 mL by mouth twice daily. - Cholecalciferol, Vitamin D3, 25 mcg (1,000 unit) cap Take 1,000 Units by mouth once daily. - cyanocobalamin (VITAMIN B-12) 1,000 mcg tab Take 1,000 mcg by mouth once daily. - cyclobenzaprine (FLEXERIL) 10 mg tablet Take by mouth three times daily. - galcanezumab-gnlm (EMGALITY SYRINGE) 120 mg/mL syringe Inject subcutaneously once every month. Do not shake. - Dexlansoprazole 60 mg CpDM take 1 capsule by mouth before breakfast - CPAP/BIPAP/OTHER Type .CPAPSettings into a note to see current settings/supplies/DME information. - Simethicone (GAS RELIEF, SIMETHICONE,) 125 mg chewable tablet Take 2 tablets by mouth three times daily as needed. - traZODone (DESYREL) 50 mg tablet Take 150 mg by mouth daily at bedtime. - atorvastatin (LIPITOR) 20 mg tablet Take 20 mg by mouth once daily. - rOPINIRole (REQUIP) 2 mg tablet Take 2 mg by mouth twice daily. Takes 2 mg in the AM and 4 mg PM - ysrspdgwpip-mrftdavya-tgxwsfba (TRELEGY ELLIPTA) 100-62.5-25 mcg Inhale 1 Puff as instructed once daily. 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] 08/04/2021 Asthma [J45.909] GERD (gastroesophageal reflux disease) [K21.9] History of 2019 novel coronavirus disease (COVI* Pelvic floor dysfunction [M62.89] 12/24/2021 Lack of coordination [R27.9] 01/18/2022 Follow-up examination after colorectal surgery *01/18/2022 Chronic idiopathic constipation [K59.04] 03/15/2022 Chronic constipation [K59.09] 03/28/2022 CHUCKIE (obstructive sleep apnea) [G47.33] 11/21/2022 Nausea [R11.0] 11/30/2022 Encounter Status:Closed by SEE WONG on 12/12/22 [facility] Hussain 12-08-2022 CNPN Telephone (GASTSP) MARY LEAL ([id number]) 1970 F Date Time Provider Department 12/08/22 ISRA MASTERS GASTSP During your visit today, we recorded the following information about you: Nelsy Pepe RN 12/08/2022 4:56 PM Signed SPECIALTY CARE COORDINATION FOLLOW-UP NOTE Provider Action/FYI Patient asking about findings from sigmoidoscopy on 12/05/22? Wants to know if she still has colon left? If Dr. Masters is contacting colorectal surgeon? If ted is left wants to know if that is what could be still making her symptomatic? Patient identified by name and date of . YES Message from patient Summary: As noted Concerns: Procedure results Banquet Coordinator plan for next outreach: Will follow up Signature Nelsy Pepe RN December 08, 2022 Isra Masters DO 12/09/2022 10:26 AM Signed She has 20-21cm of colon left and based on the smart pill it to 17hrs to get out of that area which would be very delayed so yes it could cause the symptoms. Jennie Howell, MALAIKA 12/09/2022 1:32 PM Signed Called patient and advised of Dr Masters's message. Patient said Dr Masters was going to contact [facility]. Patient asking if he was able to. Allergies As of Date: 12/08/2022 Noted Allergy Reaction RISPERIDONE 07/27/2021 5 - Intolerance Comments: Breast discharge Date Reviewed: 12/07/2022 Reviewed by: Marley Mitchell RN - Fully Assessed Reason for Visit: Results [95] Cmt: Sigmoidoscopy results; patient questions Prescriptions as of 01/25/2023 - sucralfate (CARAFATE) 100 mg/mL suspension Take 10 mL by mouth twice daily. - Cholecalciferol, Vitamin D3, 25 mcg (1,000 unit) cap Take 1,000 Units by mouth once daily. - cyanocobalamin (VITAMIN B-12) 1,000 mcg tab Take 1,000 mcg by mouth once daily. - cyclobenzaprine (FLEXERIL) 10 mg tablet Take by mouth three times daily. - galcanezumab-gnlm (EMGALITY SYRINGE) 120 mg/mL syringe Inject subcutaneously once every month. Do not shake. - Dexlansoprazole 60 mg CpDM take 1 capsule by mouth before breakfast - Simethicone (GAS RELIEF, SIMETHICONE,) 125 mg chewable tablet Take 2 tablets by mouth three times daily as needed. - traZODone (DESYREL) 50 mg tablet Take 150 mg by mouth daily at bedtime. - atorvastatin (LIPITOR) 20 mg tablet Take 20 mg by mouth once daily. - rOPINIRole (REQUIP) 2 mg tablet Take 2 mg by mouth twice daily. Takes 2 mg in the AM and 4 mg PM - bjrjbzeluec-luofvynkr-qnmfesug (TRELEGY ELLIPTA) 100-62.5-25 mcg Inhale 1 Puff as instructed once daily. Problem List As Of Date 12/08/2022 Noted Resolved Impingement syndrome of right shoulder [M75.41] 09/29/2020 Arthritis of right acromioclavicular joint [M19*09/29/2020 Partial nontraumatic rupture of right rotator c*09/29/2020 HTN (hypertension) [I10] Gastroparesis [K31.84] Esophageal dysphagia [R13.19] Bipolar 1 disorder (HCC) [F31.9] Obesity (BMI 30.0-34.9) [E66.9] Status post arthroscopy of right shoulder [Z98.*01/22/2021 Sleep disturbance- chronic [G47.9] 08/04/2021 Genitourinary syndrome of menopause [N95.8] 08/04/2021 Asthma [J45.909] GERD (gastroesophageal reflux disease) [K21.9] History of 2018 novel coronavirus disease (COVI* Pelvic floor dysfunction [M62.89] 12/24/2021 Lack of coordination [R27.9] 01/18/2022 Follow-up examination after colorectal surgery *01/18/2022 Chronic idiopathic constipation [K59.04] 03/15/2022 Chronic constipation [K59.09] 03/28/2022 CHUCKIE (obstructive sleep apnea) [G47.33] 11/21/2022 Nausea [R11.0] 11/30/2022 Encounter Status:Closed by NELSY PEPE on 01/25/[address] [facility] NURSING PROGon 12-08-2022 NURSING PROG HNO ID: [id number] Author: Lisa Contreras RN Service: Nursing Author Type: Registered Nurse Type: Nursing Progress Note Filed: 12/08/2022 11:28 AM Note Text: [facility] ENDOSCOPY POST PROCEDURE FOLLOW UP CALL [phone] (home) Date Phone Call Made: 12/08/2022 Attempt: Attempt #1 Spoke to: Patient SYMPTOM DESCRIPTION Pain or Discomfort rated as: None IV No complaints Diet Back to Previous yes Nausea/Vomiting: None Bleeding: None Bowel Habits: N/A Other Issues: No Complaints Offered Was the nursing staff attentive to your needs? Yes Is there something our department could have done to make your experience more pleasant? No Lisa Contreras RN [facility] POSTPROC EVALon 023 ANES POSTPROC EVAL HNO ID: [id number] Author: Andres Sheets DO Service: Anesthesiology Author Type: Anesthesiologist Type: Anesthesia Postprocedure Evaluation Filed: 12/07/2022 12:44 PM Note Text: POST ANESTHESIA EVALUATION NOTE : 1970 Procedure Summary Date: 12/07/22 Room / Location: [facility] Anesthesia Start: 1034 Anesthesia Stop: 1055 Procedures: EGD - THERAPEUTIC, EUS, OR TUBE INTERVENTIONS PH MONTIEL INSERT OFF MEDS Diagnosis: Gastroparesis Gastroesophageal reflux disease, unspecified whether esophagitis present (Established gastro-esophageal reflux disease) (Follow-up of gastro-esophageal reflux disease) (Established gastroparesis) (For therapy of gastroparesis) Scheduled Providers: Winston Hannah DO Responsible Provider: Andres Sheets DO Anesthesia Type: MAC ASA Status: 2 Anesthesia Type: MAC Last Vitals Vitals Value Taken Time BP 109/67 12/07/22 1200 Temp 36.6 ?C (97.9 ?F) 12/07/22 1055 HR SpO2 87 12/07/22 1201 Resp 28 12/07/22 1201 SpO2 95 % 12/07/22 1201 Post Anesthesia Patient Status Patient Evaluation: bedside. Neurological Status: aware and responsive. Pulmonary Status: breathing comfortably on room air Airway Control: returned to baseline unsupported. Cardiovascular Status: stable. Pain Management: clinically adequate Postoperative Hydration: acceptable. Intraoperative Events: no significant anesthesia events Post Operative Nausea/Vomiting Status: no significant post operative nausea or vomiting Recommendation: continue current plan of care. Anesthesia Observations No Documentation SIGNATURE: Andres Sheets DO PATIENT NAME: Mary Leal DATE: December 07, 2022 TIME: 12:44 PM CSN: [id number] [facility] ANES PRE-OPon 12-07-2022 ANES PRE-OP HNO ID: [id number] Author: Andres Sheets DO Service: Anesthesiology Author Type: Anesthesiologist Type: Anesthesia Preprocedure Evaluation Filed: 12/07/2022 9:42 AM Note Text: ANESTHESIOLOGY DAY OF SURGERY NOTE : 1970 Procedure Information Date/Time: 12/07/22 1030 Scheduled providers: Winston Hannah DO Procedures: EGD - THERAPEUTIC, EUS, OR TUBE INTERVENTIONS PH MONTIEL INSERT OFF MEDS Location: [facility] Estimated body mass index is 24.55 kg/m? as calculated from the following: Height as of 12/05/22: 162.6 cm (5' 4 ). Weight as of 12/05/22: 64.9 kg (143 lb). Most recent hematocrit and potassium results: Hematocrit 31.1 04/05/2022 Potassium 3.9 04/05/2022 Relevant Problems ANESTHESIA (+) CHUCKIE (obstructive sleep apnea) CARDIO (+) HTN (hypertension) GI (+) GERD (gastroesophageal reflux disease) NEURO-PSYCH (+) History of 2019 novel coronavirus disease (COVID-19) PULMONARY (+) Asthma (+) History of 2019 novel coronavirus disease (COVID-19) (+) CHUCKIE (obstructive sleep apnea) Other (+) Arthritis of right acromioclavicular joint (+) Impingement syndrome of right shoulder I - PHYSICAL EVALUATION AIRWAY Patient intubated: No. Tracheostomy tube not present Mallampati: I. TM distance: >3 FB. Neck ROM: full ROM without neurological symptoms. Mouth opening: adequate. Short neck: no. Thick neck: no DENTAL Dental findings: teeth intact and missing tooth/teeth. Additional exam findings: no II - ANESTHESIA PLAN ASA Score: 2 Anesthetic Plan: MAC NPO Status: adequate Beta Zack Monitoring Plan Monitoring plan: standard ASA. Post Procedure Analgesic Plan Postoperative analgesic plan: parenteral or oral opioids. Informed Consent Anesthetic risks, benefits, alternatives, personnel and consent discussed: yes. Patient / Responsible Alliance Party agrees to proceed: yes Patient / Surrogate agrees to blood products: blood products not planned Significant changes in the patient condition since the History and Physical, not otherwise documented in primary service progress note: no. Potential Anesthesia issues that may suggest increased risk of complications or contraindication to planned procedure: none. Vitals Value Taken Time BP 109/74 12/07/22919 Pulse 91 12/07/22919 Resp 16 12/07/22919 Temp 36 ?C (96.8 ?F) 12/07/22919 SpO2 98 % 12/07/22919 Outpatient Medications as of 12/07/2022 Medication Sig - Cholecalciferol, Vitamin D3, 25 mcg (1,000 unit) cap Take 1,000 Units by mouth once daily. - cyanocobalamin (VITAMIN B-12) 1,000 mcg tab Take 1,000 mcg by mouth once daily. - cyclobenzaprine (FLEXERIL) 10 mg tablet Take by mouth three times daily. - Dexlansoprazole 60 mg CpDM take 1 capsule by mouth before breakfast - traZODone (DESYREL) 50 mg tablet Take 150 mg by mouth daily at bedtime. - atorvastatin (LIPITOR) 20 mg tablet Take 20 mg by mouth once daily. - rOPINIRole (REQUIP) 2 mg tablet Take 2 mg by mouth twice daily. Takes 2 mg in the AM and 4 mg PM - gntomftltal-xhidfmdyj-tttepkeg (TRELEGY ELLIPTA) 100-62.5-25 mcg Inhale 1 Puff as instructed once daily. - galcanezumab-gnlm (EMGALITY SYRINGE) 120 mg/mL syringe Inject subcutaneously once every month. Do not shake. - CPAP/BIPAP/OTHER Type .CPAPSettings into a note to see current settings/supplies/DME information. - Simethicone (GAS RELIEF, SIMETHICONE,) 125 mg chewable tablet Take 2 tablets by mouth three times daily as needed. Facility-Administered Medications as of 12/07/2022 Medication Dose Route Frequency - lactated ringers iv infusion 30 mL/hr INTRAVENOUS CONTINUOUS I have interviewed and examined the patient. I have reviewed the medical record and/or the pre-anesthesia evaluation, pertinent labs, and test results. This contains updated information obtained within 48 hours of Surgery/Procedure. SIGNATURE: Andres Sheets DO PATIENT NAME: Mary Leal DATE: December 07, 2022 TIME: 9:40 AM CSN: [id number] [facility] HISTORY PHYSICALon HISTORY PHYSICAL HNO ID: [id number] Author: Soraida Mathis PA-C Service: Gastroenterology Author Type: Physician Back Filler Operator Type: HANDP Filed: 12/07/2022 9:48 AM Note Text: UPDATED HISTORY AND PHYSICAL EXAMINATION SERVICE DATE: 12/07/2022 SERVICE TIME: 9:41 AM SERVICE: Gastroenterology PHYSICAL EXAM MUST BE COMPLETED ON ADMISSION The History and Physical (completed in the past 30 days) has been reviewed and the patient has been examined. The contents accurately reflect the patient's condition with the following additions or revisions since the HANDP was completed. This is a 52 y/o female that presetns for EGD. She has a PMH significant for Asthma, Bipolar, Gastroparesis, HTN, PTSD. No complaints at this time. Patient denies any changes to health since last examination. Patient DENIES CHEST PAIN, PALPITATIONS, FATIGUE, DIZZINESS Shortness of breath, COUGHING, WHEEZING ABDOMINAL PAIN, N/V/D Medication reconciliation list [facility]. Past medical history, past surgical history, social history and family history reviewed and updated in [facility]. ALLERGIES Allergies: Risperidone Intolerance Comment:Breast discharge SEE [facility] FOR VITALS BP 109/74 Pulse 91 Temp 36 ?C (96.8 ?F) (Temporal) Resp 16 SpO2 98% Examination indicates no changes. On examination today: Lungs: Clear to auscultation bilaterally. Heart: RRR, Normal S1/S2, No murmurs, rubs, gallops or thrills appreciated. Abdomen: BS+ in all quadrants, abdomen is soft, non tender, and without guarding. Assessment: 1. Gastroparesis [K31.84] Gastroesophageal reflux disease, unspecified whether esophagitis present [K21.9] Plan: EGD and MONTIEL This HANDP can be found in the Electronic Medical Record dated 11/30/2022 completed by Isra Masters DO SIGNATURE: Soraida Mathis PA-C PATIENT NAME: Mary Leal DATE: 12/07/2022 TIME: 9:41 AM Normal [facility] Upper GI endoscopyon 023 Upper GI endoscopy [facility] Gastrointestinal Endoscopy Patient Name: Mary Leal Procedure Date: 12/07/2022 10:20 AM Date of : 1970 Admit Type: Emergency Department Age: 52 Room: Procedure Room 3 Gender: Female Note Status: Finalized Attending MD: Winston Hannah MD Procedure: Upper GI endoscopy Indications: Gastro-esophageal reflux disease, Follow-up of gastro-esophageal reflux disease, Gastroparesis, For therapy of gastroparesis Providers: Winston Hannah MD Patient Profile: Refer to note in patient chart for documentation of history and physical. Referring Physician: Medicines: Monitored Anesthesia Care Complications: No immediate complications. Estimated blood loss: Minimal. Requesting Provider: Procedure: Pre-Anesthesia Assessment: - Prior to the procedure, a History and Physical was performed, and patient medications and allergies were reviewed. The patient is competent. The risks and benefits of the procedure and the sedation options and risks were discussed with the patient. All questions were answered and informed consent was obtained. Patient identification and proposed procedure were verified by the physician, the nurse and the environmental planning engineer in the pre-procedure area in the endoscopy suite. Mental Status Examination: alert and oriented. Airway Examination: normal oropharyngeal airway and neck mobility. Respiratory Examination: clear to auscultation. CV Examination: normal. Prophylactic Antibiotics: The patient does not require prophylactic antibiotics. Prior Anticoagulants: The patient has taken no anticoagulant or antiplatelet agents. ASA Grade Assessment: II - A patient with mild systemic disease. After reviewing the risks and benefits, the patient was deemed in satisfactory condition to undergo the procedure. The anesthesia plan was to use monitored anesthesia care (MAC). Immediately prior to administration of medications, the patient was re-assessed for adequacy to receive sedatives. The heart rate, respiratory rate, oxygen saturations, blood pressure, adequacy of pulmonary ventilation, and response to care were monitored throughout the procedure. The physical status of the patient was re-assessed after the procedure. After obtaining informed consent, the endoscope was passed under direct vision. Throughout the procedure, the patient's blood pressure, pulse, and oxygen saturations were monitored continuously. The Endoscope was introduced through the mouth, and advanced to the second part of duodenum. The upper GI endoscopy was accomplished without difficulty. The patient tolerated the procedure well. Moderate Sedation: MAC anesthesia was administered by the anesthesia team. No sedation was administered for this procedure. Total Procedure Duration: 0 hours 7 minutes 1 second Findings: The examined portions of the nasopharynx, oropharynx and larynx were normal. LA Grade D (one or more mucosal breaks involving at least 75% of esophageal circumference) esophagitis with no bleeding was found 32 to 36 cm from the incisors. Normal mucosa was found in the stomach. Suspect gastroparesis due to patient symptoms. A TTS dilator was passed through the scope. Dilation with an 18-19-20 mm pyloric balloon dilator was performed. Estimated blood loss was minimal. A TTS dilator was passed through the scope. Dilation with an 18-19-20 mm pyloric balloon dilator was performed. The dilation site was examined following endoscope reinsertion and showed complete resolution of luminal narrowing. Estimated blood loss was minimal. The examined duodenum was normal. Impression: - The examined portions of the nasopharynx, oropharynx and larynx were normal. - LA Grade D reflux esophagitis with no bleeding. - Z line irregular 36cm from incisors - Normal mucosa was found in the stomach. - Gastroparesis. Dilated to 20mm - Normal examined duodenum. - No specimens collected. - Montiel was not placed due to severe esophagitis Recommendation: - Discharge patient to home (ambulatory). - Resume previous diet today. - Recommend acid suppression medication indefinitely. - Return to my office as previously scheduled. Procedure Code(s): --- Professional --- 86029, Esophagogastroduodenoscopy, flexible, transoral; with dilation of gastric/duodenal stricture(s) (eg, balloon, bougie) Diagnosis Code(s): --- Professional --- K21.00, Gastro-esophageal reflux disease with esophagitis, without bleeding K31.84, Gastroparesis CPT copyright 2020 [employer]. All rights reserved. The codes documented in this report are preliminary and upon supply planner review may be revised to meet current compliance requirements. Attending Participation: I personally performed the entire procedure. Scope In: 10:39:12 AM Scope Out: 10:46:13 AM MD Winston Diaz MD 12/07/2022 10 (more content not included)... [facility] 36on 12-05-2022 36 I called patient jabier mcbride at [phone], she reported to me she stopped Vyvanse 30mg after 2 days due to insomnia. We reviewed her requip dosages, and I asked her to reduce her night dose to 2mg at bedtime and her morning dose to 1mg to prevent overactivation. [facility] ANES POSTPROC EVALon 023 ANES POSTPROC EVAL HNO ID: [id number] Author: Annabel Burton MD Service: Anesthesiology Author Type: Physician Type: Anesthesia Postprocedure Evaluation Filed: 12/05/2022 2:01 PM Note Text: POST ANESTHESIA EVALUATION NOTE : 1970 Procedure Summary Date: 12/05/22 Room / Location: [facility] Anesthesia Start: 900 Anesthesia Stop: 917 Procedure: SIGMOIDOSCOPY Diagnosis: Chronic idiopathic constipation (Constipation) Scheduled Providers: Isra Masters DO Responsible Provider: Annabel Burton MD Anesthesia Type: MAC ASA Status: 2 Anesthesia Type: MAC Last Vitals Vitals Value Taken Time BP 112/75 12/05/22 0945 Temp 36.2 ?C (97.2 ?F) 12/05/22 0917 HR SpO2 85 12/05/22 0946 Resp 22 12/05/22 0958 SpO2 96 % 12/05/22 0946 Vitals shown include unvalidated device data. Post Anesthesia Patient Status Patient Evaluation: bedside. Anticipated Disposition: phase 2 then home. Neurological Status: aware and responsive. Pulmonary Status: breathing comfortably on room air Airway Control: returned to baseline unsupported. Cardiovascular Status: stable. Pain Management: clinically adequate Postoperative Hydration: acceptable. Intraoperative Events: no significant anesthesia events Post Operative Nausea/Vomiting Status: no significant post operative nausea or vomiting Recommendation: continue current plan of care. Anesthesia Observations No Documentation SIGNATURE: Annabel Burton MD PATIENT NAME: Mary Leal DATE: December 05, 2022 TIME: 2:00 PM CSN: [id number] [facility] ANES PRE-OPon 12-05-2022 ANES PRE-OP HNO ID: [id number] Author: Annabel Burton MD Service: Anesthesiology Author Type: Physician Type: Anesthesia Preprocedure Evaluation Filed: 12/05/2022 8:28 AM Note Text: ANESTHESIOLOGY DAY OF SURGERY NOTE : 1970 Procedure Information Date/Time: 12/05/22 0900 Scheduled providers: Isra Masters DO Procedure: SIGMOIDOSCOPY Location: [facility] Estimated body mass index is 24.55 kg/m? as calculated from the following: Height as of 11/21/22: 162.6 cm (5' 4 ). Weight as of 11/21/22: 64.9 kg (143 lb). Most recent hematocrit and potassium results: Hematocrit 31.1 04/05/2022 Potassium 3.9 04/05/2022 Relevant Problems ANESTHESIA (+) CHUCKIE (obstructive sleep apnea) CARDIO (+) HTN (hypertension) GI (+) GERD (gastroesophageal reflux disease) NEURO-PSYCH (+) History of 2019 novel coronavirus disease (COVID-19) PULMONARY (+) Asthma (+) History of 2019 novel coronavirus disease (COVID-19) (+) CHUCKIE (obstructive sleep apnea) Other (+) Arthritis of right acromioclavicular joint (+) Impingement syndrome of right shoulder I - PHYSICAL EVALUATION AIRWAY Patient intubated: No. Tracheostomy tube not present Mallampati: II. TM distance: >3 FB. Neck ROM: full ROM without neurological symptoms. Mouth opening: adequate. Short neck: no. Thick neck: no Cutler present: no DENTAL Dental findings: missing tooth/teeth. Additional exam findings: no II - ANESTHESIA PLAN ASA Score: 2 Anesthetic Plan: MAC The patient is a current smoker. NPO Status: adequate Beta Zack Monitoring Plan Monitoring plan: standard ASA. Post Procedure Analgesic Plan Postoperative analgesic plan: parenteral or oral opioids. Informed Consent Anesthetic risks, benefits, alternatives, personnel and consent discussed: yes. Patient / Responsible Alliance Party agrees to proceed: yes Patient / Surrogate agrees to blood products: blood products not planned Potential Anesthesia issues that may suggest increased risk of complications or contraindication to planned procedure: none. No vitals data found for the desired time range. Outpatient Medications as of 12/05/2022 Medication Sig - Cholecalciferol, Vitamin D3, (VITAMIN D) 25 mcg (1,000 unit) cap Take 1,000 Units by mouth once daily. - cyanocobalamin (VITAMIN B-12) 1,000 mcg tab Take 1,000 mcg by mouth once daily. - cyclobenzaprine (FLEXERIL) 10 mg tablet Take by mouth three times daily. - galcanezumab-gnlm (EMGALITY SYRINGE) 120 mg/mL syringe Inject subcutaneously once every month. Do not shake. - Dexlansoprazole 60 mg CpDM take 1 capsule by mouth before breakfast - CPAP/BIPAP/OTHER Type .CPAPSettings into a note to see current settings/supplies/DME information. - Simethicone (GAS RELIEF, SIMETHICONE,) 125 mg chewable tablet Take 2 tablets by mouth three times daily as needed. - traZODone (DESYREL) 50 mg tablet Take 150 mg by mouth daily at bedtime. - atorvastatin (LIPITOR) 20 mg tablet Take 20 mg by mouth once daily. - rOPINIRole (REQUIP) 2 mg tablet Take 2 mg by mouth twice daily. Takes 2 mg in the AM and 4 mg PM - uarorunsngm-fkxzpuoig-huutfnft (TRELEGY ELLIPTA) 100-62.5-25 mcg Inhale 1 Puff as instructed once daily. No current facility-administered medications on file as of 12/05/2022. I have interviewed and examined the patient. I have reviewed the medical record and/or the pre-anesthesia evaluation, pertinent labs, and test results. This contains updated information obtained within 48 hours of Surgery/Procedure. SIGNATURE: Annabel Burton MD PATIENT NAME: Mary Leal DATE: December 05, 2022 TIME: 8:26 AM CSN: [id number] [facility] Flexible Sigmoidoscopyon Flexible sigmoidoscopy [facility] Gastrointestinal Endoscopy Patient Name: Mary Leal Procedure Date: 12/05/2022 8:55 AM Date of : 1970 Admit Type: Outpatient Age: 52 Room: [place] [address] Gender: Female Note Status: Finalized Attending MD: Isra Masters DO Procedure: Flexible Sigmoidoscopy Indications: Constipation Providers: Isra Masters DO Patient Profile: This is a 52 year old female. Refer to note in patient chart for documentation of history and physical. Referring Physician: Isra Masters DO (Referring MD) Medicines: See the Anesthesia note for documentation of the administered medications Complications: No immediate complications. Requesting Provider: Procedure: Pre-Anesthesia Assessment: - Prior to the procedure, a History and Physical was performed, and patient medications and allergies were reviewed. The patient is competent. The risks and benefits of the procedure and the sedation options and risks were discussed with the patient. All questions were answered and informed consent was obtained. Patient identification and proposed procedure were verified by the physician in the pre-procedure area. Mental Status Examination: alert and oriented. Airway Examination: normal oropharyngeal airway and neck mobility. Respiratory Examination: clear to auscultation. CV Examination: normal. Prophylactic Antibiotics: The patient does not require prophylactic antibiotics. Prior Anticoagulants: The patient has taken no anticoagulant or antiplatelet agents. ASA Grade Assessment: II - A patient with mild systemic disease. After reviewing the risks and benefits, the patient was deemed in satisfactory condition to undergo the procedure. The anesthesia plan was to use monitored anesthesia care (MAC). Immediately prior to administration of medications, the patient was re-assessed for adequacy to receive sedatives. The heart rate, respiratory rate, oxygen saturations, blood pressure, adequacy of pulmonary ventilation, and response to care were monitored throughout the procedure. The physical status of the patient was re-assessed after the procedure. After obtaining informed consent, the scope was passed under direct vision. The Colonoscope was introduced through the anus and advanced to the rectosigmoid junction. The flexible sigmoidoscopy was accomplished without difficulty. The patient tolerated the procedure well. The quality of the bowel preparation was good. Moderate Sedation: MAC anesthesia was administered by the anesthesia team. Total Procedure Duration: 0 hours 2 minutes 41 seconds Findings: The perianal and digital rectal examinations were normal. The area at 20 cm proximal to the anus appeared normal. Impression: - The area at 20 cm proximal to the anus is normal. - No specimens collected. Recommendation: - Discharge patient to home. - Resume previous diet. - Continue present medications. Procedure Code(s): --- Professional --- 82800, 52, Sigmoidoscopy, flexible; diagnostic, including collection of specimen(s) by brushing or washing, when performed (separate procedure) Diagnosis Code(s): --- Professional --- K59.00, Constipation, unspecified CPT copyright 2020 [employer]. All rights reserved. The codes documented in this report are preliminary and upon supply planner review may be revised to meet current compliance requirements. Attending Participation: I personally performed the entire procedure. Scope In: 9:07:04 AM Scope Out: 9:09:45 AM DO Isra Chen DO 12/05/2022 9:13:05 AM This report has been signed electronically by Isra Masters DO Number of Addenda: 0 Note Initiated On: 12/05/2022 8:55 AM Estimated Blood Loss: Estimated blood loss: none. Normal [facility] HISTORY PHYSICALon 3 HISTORY PHYSICAL HNO ID: [id number] Author: Lashanda Dorado PA-C Service: Gastroenterology Author Type: Physician Back Filler Operator Type: HANDP Filed: 12/05/2022 8:43 AM Note Text: UPDATED HISTORY AND PHYSICAL EXAMINATION SERVICE DATE: 12/05/2022 SERVICE TIME: 8:42 AM SERVICE: PHYSICAL EXAM MUST BE COMPLETED ON ADMISSION The History and Physical (completed in the past 30 days) has been reviewed and the patient has been examined. The contents accurately reflect the patient's condition with the following additions or revisions since the HANDP was completed. +weight loss PAST MEDICAL HISTORY Diagnosis Date Asthma as a child Bipolar 1 disorder (HCC) Gastroparesis History of laparoscopic-assisted vaginal hysterectomy 10/2015 for endometriosis HTN (hypertension) PTSD (post-traumatic stress disorder) Patient DENIES CHEST PAIN, PALPITATIONS, FATIGUE, DIZZINESS Shortness of breath, COUGHING, WHEEZING ABDOMINAL PAIN, N/V/D Medication reconciliation list [facility] in [facility]. Past medical history, past surgical history, social history and family history reviewed and updated in [facility]. ALLERGIES Allergies: Risperidone Intolerance Comment:Breast discharge SEE [facility] FOR [facility]ITALS There were no vitals taken for this visit. Examination indicates no changes. On examination today: Lungs: Clear to auscultation bilaterally. Heart: RRR, Normal S1/S2, No murmurs, rubs, gallops or thrills appreciated. Abdomen: BS+ in all quadrants, abdomen is soft, non tender, and without guarding. Assessment: chronic constipation Plan: SIGMOIDOSCOPY This HANDP can be found in the Electronic Medical Record dated 11.21.22 done by Yodit Back PA-C SIGNATURE: Lashanda Dorado PA-C PATIENT NAME: Mary Leal DATE: 12/05/2022 TIME: 8:42 AM Normal [facility] NURSING PROGon 12-05-2022 NURSING PROG HNO ID: [id number] Author: Lisa Contreras RN Service: ? Author Type: Registered Nurse Type: Nursing Progress Note Filed: 12/05/2022 1:07 PM Note Text: [facility] ENDOSCOPY PRE PROCEDURE CALL Akiko. I'm calling from [facility] endoscopy to provide you with the information for your surgery/procedure tomorrow. Spoke to: Patient CONFIRM Procedure Planned with patient:Esophagogastroduodenoscopy(EGD) with or without biopies based on clinical findings, removal of polyps or lesions Are you familiar with where [facility] is located?yes Address [facility] Patient instructed to enter through the main hospital entrance off [address] at the [address] through the revolving doors and check in at the main desk with your mobile lounge driver or operator's license and insurance card. yes When anesthesia or sedation is being given: Patient instructed you must have an adult mobile lounge driver or operator because you will not be able to work or drive for the rest of the day after your test.yes Can you please confirm the name and relationship of your mobile lounge driver or operator. tbd What is the best number for your mobile lounge driver or operator to be reached at tomorrow for updates? tbd Your mobile lounge driver or operator is allowed to wait here with you or they may drop you off and come back to pick you up. So you are prepared and comfortable on the day of your procedure, I want to make you aware of several safety measures we've put in place. You will be asked to sanitize your hands and will be provided with a mask to wear the entire time you are in our building. You may choose to bring your own masks from home. Additionally, the furniture has been rearranged to promote social distancing Patient instructed: Do not eat anything the morning of the procedure, including gum, hard candy and mints.yes Patient instructed not bring any valuables, jewelry, or cox and wear comfortable clothing. Do not wear makeup, lotion, or finger english. yes Patient instructed: Please bring a list of medications including over the counter, vitamin, and herbals. If you are on inhalers, please do them in the morning before your test and bring them with you.yes Blood pressure, seizure, or thyroid medications may be taken with a couple sips of water ONLY 4 hours prior to arrival time. Is the patient on blood thinners?no If so,verify if pt contacted the prescribing doctor to see how long they may hold blood thinners prior to procedure. Are you diabetic?no If so, advise pt to contact prescribing doctor to verify if any modifications are needed for insulin and/or pills Reminder:diabetic medication instructions should be given by the patient's ordering physician. If blood sugar drops, they can have CLEAR liquids to bring it up until 3 hours prior to arrival time. Hospitalizations: No Procedure and/or bowel prep instructions given to patient and questions answered: Yes, and they verbalized their understanding of instructions given Any barriers to Patient learning (confusion? Project Product Manager needed?): Patient/Patient Energy Project Manager responded appropriately on phone. If patient needs to reschedule please call: [phone] [facility] phone number: [phone] Type of instruction given: Verbal by telephone contact. [facility] 36on 12-02-2022 36 Pt is still struggling with sleeping [facility] 12-02-2022 [facility] Telephone (NIQ) MARY LEAL ([id number]) 1970 F Date Time Provider Department 12/02/22 YONI TUTTLE During your visit today, we recorded the following information about you: Barber Marie 12/02/2022 8:42 AM Signed SLEEP PHONE Name of caller: Mary Leal Relationship to patient : Self In-state or amr-ej-[id number] patient: In-State Was permission obtained from patient? Yes Patient identified by Name and Date of . ( Mary Leal, 1970). Yes Reason for Call : Patient said her and Patricia was chatting through my chart and Patricia called her about 5:15 yesterday. Number to return call [phone] Okay to leave a message ? Yes Last office visit 10/14/[address] Tuttle virtual Next office visit 01/13/[address] Tuttle virtual Patricia Benton RN 12/14/2022 5:19 PM Signed Several attempts to reach pt unsuccessful - MC sent. Allergies As of Date: 12/02/2022 Noted Allergy Reaction RISPERIDONE 07/27/2021 5 - Intolerance Comments: Breast discharge Date Reviewed: 11/30/2022 Reviewed by: Isra Masters DO - Fully Assessed Reason for Visit: Returning Nurse Call [Other] Prescriptions as of 12/20/2022 - sucralfate (CARAFATE) 100 mg/mL suspension Take 10 mL by mouth twice daily. - Cholecalciferol, Vitamin D3, 25 mcg (1,000 unit) cap Take 1,000 Units by mouth once daily. - cyanocobalamin (VITAMIN B-12) 1,000 mcg tab Take 1,000 mcg by mouth once daily. - cyclobenzaprine (FLEXERIL) 10 mg tablet Take by mouth three times daily. - galcanezumab-gnlm (EMGALITY SYRINGE) 120 mg/mL syringe Inject subcutaneously once every month. Do not shake. - Dexlansoprazole 60 mg CpDM take 1 capsule by mouth before breakfast - CPAP/BIPAP/OTHER Type .CPAPSettings into a note to see current settings/supplies/DME information. - Simethicone (GAS RELIEF, SIMETHICONE,) 125 mg chewable tablet Take 2 tablets by mouth three times daily as needed. - traZODone (DESYREL) 50 mg tablet Take 150 mg by mouth daily at bedtime. - atorvastatin (LIPITOR) 20 mg tablet Take 20 mg by mouth once daily. - rOPINIRole (REQUIP) 2 mg tablet Take 2 mg by mouth twice daily. Takes 2 mg in the AM and 4 mg PM - vzrlvzljvfh-dpshkejkz-boqxhtec (TRELEGY ELLIPTA) 100-62.5-25 mcg Inhale 1 Puff as instructed once daily. Problem List As Of Date 12/02/2022 Noted Resolved Impingement syndrome of right shoulder [M75.41] 09/29/2020 Arthritis of right acromioclavicular joint [M19*09/29/2020 Partial nontraumatic rupture of right rotator c*09/29/2020 HTN (hypertension) [I10] Gastroparesis [K31.84] Esophageal dysphagia [R13.19] Bipolar 1 disorder (HCC) [F31.9] Obesity (BMI 30.0-34.9) [E66.9] Status post arthroscopy of right shoulder [Z98.*01/22/2021 Sleep disturbance- chronic [G47.9] 08/04/2021 Genitourinary syndrome of menopause [N95.8] 08/04/2021 Asthma [J45.909] GERD (gastroesophageal reflux disease) [K21.9] History of 2019 novel coronavirus disease (COVI* Pelvic floor dysfunction [M62.89] 12/24/2021 Lack of coordination [R27.9] 01/18/2022 Follow-up examination after colorectal surgery *01/18/2022 Chronic idiopathic constipation [K59.04] 03/15/2022 Chronic constipation [K59.09] 03/28/2022 CHUCKIE (obstructive sleep apnea) [G47.33] 11/21/2022 Nausea [R11.0] 11/30/2022 Encounter Status:Closed by PATRICIA BENTON on 12/20/[address] [facility] NURSING PROGon 12-02-2022 NURSING PROG HNO ID: [id number] Author: Isra Harman RN Service: ? Author Type: Registered Nurse Type: Nursing Progress Note Filed: 12/02/2022 10:54 AM Note Text: [facility] ENDOSCOPY PRE PROCEDURE CALL Akiko. I'm calling from [facility] endoscopy to provide you with the information for your surgery/procedure tomorrow. Spoke to: Patient CONFIRM Procedure Planned with patient: Are you familiar with where [facility] is located?yes Address [facility] Patient instructed to enter through the main hospital entrance off [address] at the [address] [place] [address] [place] through the revolving doors and check in at the main desk with your mobile lounge driver or operator's license and insurance card. yes When anesthesia or sedation is being given: Patient instructed you must have an adult mobile lounge driver or operator because you will not be able to work or drive for the rest of the day after your test.yes Can you please confirm the name and relationship of your mobile lounge driver or operator. Rich What is the best number for your mobile lounge driver or operator to be reached at tomorrow for updates? [phone] Your mobile lounge driver or operator is allowed to wait here with you or they may drop you off and come back to pick you up. So you are prepared and comfortable on the day of your procedure, I want to make you aware of several safety measures we've put in place. You will be asked to sanitize your hands and will be provided with a mask to wear the entire time you are in our building. You may choose to bring your own masks from home. Additionally, the furniture has been rearranged to promote social distancing Colonoscopy: Have you had solid foods today (if call done 1 day out)?no (or instruct this must be done on Monday.) Did you pick remover your bowel prep pt calling office for type of prep needed as she has had total colectomy. Remind patient the day prior to the test they should be on a clear liquid diet all day. Clear liquids consist of liquids that you can see through (no reds or purple). Stay well hydrated all day. Do not drink just the bowel prep to clean you out. Drink all of the prep to ensure your test can be completed and polyps are not missed. Remind pt to drink at least 1 cup of clear liquids every hour even after finishing the bowel prep (up until midnight or up until 4 hours before procedure)to keep yourself hydrated and to flush the prep through your system. If pt has eaten solid foods-contact endoscopist and verify if they wish to proceed. Patient instructed: Do not eat anything the morning of the procedure, including gum, hard candy and mints.yes Patient instructed not bring any valuables, jewelry, or cox and wear comfortable clothing. Do not wear makeup, lotion, or finger english. yes Patient instructed: Please bring a list of medications including over the counter, vitamin, and herbals. If you are on inhalers, please do them in the morning before your test and bring them with you.yes Blood pressure, seizure, or thyroid medications may be taken with a couple sips of water ONLY 4 hours prior to arrival time. Is the patient on blood thinners?no If so,verify if pt contacted the prescribing doctor to see how long they may hold blood thinners prior to procedure. Are you diabetic?no If so, advise pt to contact prescribing doctor to verify if any modifications are needed for insulin and/or pills Reminder:diabetic medication instructions should be given by the patient's ordering physician. If blood sugar drops, they can have CLEAR liquids to bring it up until 3 hours prior to arrival time. Hospitalizations: No Procedure and/or bowel prep instructions given to patient and questions answered: Yes, and they verbalized their understanding of instructions given Any barriers to Patient learning (confusion? Project Product Manager needed?): Patient/Patient Energy Project Manager responded appropriately on phone. If patient needs to reschedule please call: [phone] [facility] phone number: [phone] Type of instruction given: Verbal by telephone contact. [facility] Telephoneon 12-02-2022 Telephone [id number] Darrian Leal 1970 [facility] Provider Department [place] 12/02/2022 [facility] Gerardo Pool No family history on file Reason for Visit and Comments: Insomnia [703020] [facility] Behavioral Health Telemedici pleasanton 11-30-2022 Behavioral Health Telemedicine [id number] Mary Leal 1970 [facility] Provider Department [place] 11/30/2022 [facility] Gerardo Pool No family history on file Reason for Visit and Comments: Therapy [849] [facility] 11-24-2022 MARIAN Telephone (NIQ) MARY LEAL ([id number]) 1970 F Date Time Provider Department 11/24/22 YONI TUTTLE During your visit today, we recorded the following information about you: Barber Marie 11/24/2022 2:50 PM Signed SLEEP PHONE Name of caller: Mary Leal Relationship to patient : Self In-state or xgi-hw-xmojo patient: In-State Was permission obtained from patient? Yes Patient identified by Name and Date of . ( Mary Leal, 1970). Yes Reason for Call : Patient stated she spoke to her insurance and they told her that the provider need to call [facility] to see if a PA is needed for the PAP Titration. Number to return call [phone] Okay to leave a message ? Yes Last office visit 10/14/[address] Tuttle virtual Next office visit None Uziel Serrano RN 11/24/2022 3:20 PM Signed Contacted PreAccess department to confirm they have patient on their list for prior authorization for PAP Titration. They do have patient on list and will be completing her prior authorization. Called and spoke with patient and informed her of the process of our PreAccess department. Patient stated she understood. All questions answered. Allergies As of Date: 11/24/2022 Noted Allergy Reaction RISPERIDONE 07/27/2021 5 - Intolerance Comments: Breast discharge Date Reviewed: 11/21/2022 Reviewed by: Yodit Back PA-C - Fully Assessed Reason for Visit: Is PA Needed for PAP Titration [Other] Prescriptions as of 11/24/2022 - Dexlansoprazole 60 mg CpDM take 1 capsule by mouth before breakfast - CPAP/BIPAP/OTHER Type .CPAPSettings into a note to see current settings/supplies/DME information. - Simethicone (GAS RELIEF, SIMETHICONE,) 125 mg chewable tablet Take 2 tablets by mouth three times daily as needed. - traZODone (DESYREL) 50 mg tablet Take 150 mg by mouth daily at bedtime. - atorvastatin (LIPITOR) 20 mg tablet Take 20 mg by mouth once daily. - rOPINIRole (REQUIP) 2 mg tablet Take 2 mg by mouth twice daily. Takes 2 mg in the AM and 4 mg PM - yktwtafjrwb-fdivvzdsp-wkhrmary (TRELEGY ELLIPTA) 100-62.5-25 mcg Inhale 1 Puff as instructed once daily. Problem List As Of Date 11/24/2022 Noted Resolved Impingement syndrome of right shoulder [M75.41] 09/29/2020 Arthritis of right acromioclavicular joint [M19*09/29/2020 Partial nontraumatic rupture of right rotator c*09/29/2020 HTN (hypertension) [I10] Gastroparesis [K31.84] Esophageal dysphagia [R13.19] Bipolar 1 disorder (HCC) [F31.9] Obesity (BMI 30.0-34.9) [E66.9] Status post arthroscopy of right shoulder [Z98.*01/22/2021 Sleep disturbance- chronic [G47.9] 08/04/2021 Genitourinary syndrome of menopause [N95.8] 08/04/2021 Asthma [J45.909] GERD (gastroesophageal reflux disease) [K21.9] History of 2019 novel coronavirus disease (COVI* Pelvic floor dysfunction [M62.89] 12/24/2021 Lack of coordination [R27.9] 01/18/2022 Follow-up examination after colorectal surgery *01/18/2022 Chronic idiopathic constipation [K59.04] 03/15/2022 Chronic constipation [K59.09] 03/28/2022 CHUCKIE (obstructive sleep apnea) [G47.33] 11/21/2022 Encounter Status:Closed by UZIEL SERRANO on 11/24/[address] [facility] Behavioral Health Telemedici pleasanton 11-23-2022 Behavioral Health Telemedicine [id number] Mary Leal 1970 F Date Provider Department Center 11/23/2022 Keith1-CARMEN DORSEY [facility] No family history on file Reason for Visit and Comments: Therapy [849] Telehealth Audio/video Visit [871] - WebEx Normal [facility] Hussain 11-22-2022 [facility] ELVISMARY ([id number]) 1970 F Date Time Provider Department 11/22/22 ISRA MASTERS During your visit today, we recorded the following information about you: Lilli Goldberg 11/22/2022 3:38 PM Signed Patient calling to verify that Smart Pill monitor was received at [facility]. Monitor was sent via [employer] on 11/19/22. Patient is requesting a confirmation. Allergies As of Date: 11/22/2022 Noted Allergy Reaction RISPERIDONE 07/27/2021 5 - Intolerance Comments: Breast discharge Date Reviewed: 11/21/2022 Reviewed by: Yodit Back PA-C - Fully Assessed Reason for Visit: Patient Update [1234] Prescriptions as of 11/29/2022 - Cholecalciferol, Vitamin D3, (VITAMIN D) 25 mcg (1,000 unit) cap Take 1,000 Units by mouth once daily. - cyanocobalamin (VITAMIN B-12) 1,000 mcg tab Take 1,000 mcg by mouth once daily. - cyclobenzaprine (FLEXERIL) 10 mg tablet Take by mouth three times daily. - galcanezumab-gnlm (EMGALITY SYRINGE) 120 mg/mL syringe Inject subcutaneously once every month. Do not shake. - Dexlansoprazole 60 mg CpDM take 1 capsule by mouth before breakfast - CPAP/BIPAP/OTHER Type .CPAPSettings into a note to see current settings/supplies/DME information. - Simethicone (GAS RELIEF, SIMETHICONE,) 125 mg chewable tablet Take 2 tablets by mouth three times daily as needed. - traZODone (DESYREL) 50 mg tablet Take 150 mg by mouth daily at bedtime. - atorvastatin (LIPITOR) 20 mg tablet Take 20 mg by mouth once daily. - rOPINIRole (REQUIP) 2 mg tablet Take 2 mg by mouth twice daily. Takes 2 mg in the AM and 4 mg PM - kcephsfhybl-zlzvrgibv-vbjwyipb (TRELEGY ELLIPTA) 100-62.5-25 mcg Inhale 1 Puff as instructed once daily. Problem List As Of Date 11/22/2022 Noted Resolved Impingement syndrome of right shoulder [M75.41] 09/29/2020 Arthritis of right acromioclavicular joint [M19*09/29/2020 Partial nontraumatic rupture of right rotator c*09/29/2020 HTN (hypertension) [I10] Gastroparesis [K31.84] Esophageal dysphagia [R13.19] Bipolar 1 disorder (HCC) [F31.9] Obesity (BMI 30.0-34.9) [E66.9] Status post arthroscopy of right shoulder [Z98.*01/22/2021 Sleep disturbance- chronic [G47.9] 08/04/2021 Genitourinary syndrome of menopause [N95.8] 08/04/2021 Asthma [J45.909] GERD (gastroesophageal reflux disease) [K21.9] History of 2019 novel coronavirus disease (COVI* Pelvic floor dysfunction [M62.89] 12/24/2021 Lack of coordination [R27.9] 01/18/2022 Follow-up examination after colorectal surgery *01/18/2022 Chronic idiopathic constipation [K59.04] 03/15/2022 Chronic constipation [K59.09] 03/28/2022 CHUCKIE (obstructive sleep apnea) [G47.33] 11/21/2022 Encounter Status:Closed by LILLI GOLDBERG on 11/29/22 [facility] HISTORY PHYSICALon 3 HISTORY PHYSICAL HNO ID: [id number] Author: Yodit Back PA-C Service: ? Author Type: Physician Back Filler Operator Type: HANDP Filed: 11/21/2022 8:22 AM Note Text: PREANESTHESIA CONSULT CLINIC TELEHEALTH VISIT Patient has been identified by name and date of : Yes This is a virtual visit using Immusoft video visit. It require patient-provider interaction for the medical decision making as documented below. Reason for contact: PACC visit Accompanied by: Self Scheduled Surgery: EGD w/ pyloric dilation and Montiel placement Subjective CHIEF COMPLAINT: Patient presents with: Anesthesia Consult HPI: This is a 52 year old female who presents with gastroparesis and lower GI dysmotility. She is s/p total abdominal colectomy with ileorectal anastamosis. Has persistent N/V, GERD, and upper abdominal pain. She is gradually losing weight and unable to tolerate most solid foods. Recommended for above surgery and elected to proceed. 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 Htn (Hypertension) Gastroparesis Esophageal Dysphagia Bipolar 1 Disorder (Hcc) Obesity (Bmi 30.0-34.9) Status Post Arthroscopy of Right Shoulder Sleep disturbance- chronic Genitourinary Syndrome of Menopause Asthma Gerd (Gastroesophageal Reflux Disease) History of 2019 Novel Coronavirus Disease (Covid-19) Pelvic Floor Dysfunction Lack of Coordination Follow-Up Examination After Colorectal Surgery Chronic Idiopathic Constipation Chronic Constipation Chuckie (Obstructive Sleep Apnea) PAST MEDICAL HISTORY Diagnosis Date Asthma as a child Bipolar 1 disorder (HCC) Gastroparesis History of laparoscopic-assisted vaginal hysterectomy 10/2015 for endometriosis HTN (hypertension) PTSD (post-traumatic stress disorder) PAST SURGICAL HISTORY Procedure Laterality Date COLONOSCOPY EGD 2019 with dilation FOOT SURGERY HX Right 10/2022 reconstruction PAST SURGICAL HISTORY OF left foot reconstruction PAST SURGICAL HISTORY OF cervical neck surgery PAST SURGICAL HISTORY OF Left ACL PAST SURGICAL HISTORY OF anal fissure PAST SURGICAL HISTORY OF Left CTR PAST SURGICAL HISTORY OF appendectomy PAST SURGICAL HISTORY OF bilat bunionectomy PAST SURGICAL HISTORY OF 12/24/2021 laparoscopic proctopexy with diverting loop ileostomy, anterior AND posterior colporrhaphy and sling 12/24/2021 TONSILLECTOMY HX 02/11/2021 and septoplasty TONSILLECTOMY HX 07/2021 revision VAGINAL HYSTERECTOMY 2014 LAV 10/2015 for endometriosis, has remaining both FAMILY HISTORY Problem Relation Age of Onset Hypertension Mother Dementia Mother Hypertension Father other (atrial fibrillation) Father Anesthesia Problems No Family History Social History Tobacco Use Smoking status: Never Smokeless tobacco: Never Substance Use Topics Alcohol use: Never Drug use: Never ALLERGIES Allergen Reactions Risperidone Intolerance Breast discharge MEDICATIONS: Current Outpatient Medications Medication Sig Dexlansoprazole 60 mg CpDM take 1 capsule by mouth before breakfast CPAP/BIPAP/OTHER Type .CPAPSettings into a note to see current settings/supplies/DME information. Simethicone (GAS RELIEF, SIMETHICONE,) 125 mg chewable tablet Take 2 tablets by mouth three times daily as needed. traZODone (DESYREL) 50 mg tablet Take 150 mg by mouth daily at bedtime. atorvastatin (LIPITOR) 20 mg tablet Take 20 mg by mouth once daily. rOPINIRole (REQUIP) 2 mg tablet Take 2 mg by mouth twice daily. Takes 2 mg in the AM and 4 mg PM ztzpzminmkz-dmxlqfjob-cgtjsifw (TRELEGY ELLIPTA) 100-62.5-25 mcg Inhale 1 Puff as instructed once daily. No current facility-administered medications for this visit. COVID VACCINATION STATUS: Fully vaccinated REVIEW OF SYSTEMS: Pain Assessment: General: No weight loss, malaise or fevers. Neuro: No history of TIA's, stroke, WELL SITE DRILLING ENGINEER tumor, impaired sensorium, hemiplegia, paraplegia or quadraplegia. No neurological symptoms or problems. Respiratory: Negative for Current cough, Daily bronchodilator use for previous 3 months, Home O2, Pneumonia within 6 weeks (date), URI < 2 weeks + Asthma - uses inhaler a few times per week + CHUCKIE - working on settings and fit and unsure of appropriate settings so has not used CPAP yet Cardiovascular: No history of HTN requiring medication, no history of angina, CHF, [place], cardiac surgery or stents. Denies rest pain, gangrene or revascularization/amputation for PVD. No history of cardiovascular symptoms or problems. + HLD GI: See HPI : No history of dysuria, frequency or incontinence,, stones or chronic kidney disease ESL PROFESSOR: Negative for abnormal vaginal bleeding, abnormal vaginal discharge. : Denies, No LMP recorded. Patient has had a hysterectomy. Endocrine: No history of diabetes. Has not taken steroids within the past 30 (more content not included)... Normal [facility] Behavioral Health Telemedici pleasanton 11-18-2022 Behavioral Health Telemedicine [id number] Mary Leal 1970 F Date Provider Department Center 11/18/2022 [facility] Gerardo Heal No family history on file Reason for Visit and Comments: Telehealth Audio/video Visit [871] - [email or web address] or [email or web address] Normal [facility] CNOVon 11-17-2022 CNOV Office Visit (GENSSP ) MARY LEAL ([id number]) 1970 F Date Time Provider Department 11/17/22 2:00 PM WINSTON HANNAH During your visit today, we recorded the following information about you: Pulse Blood pressure Weight Height 109/minute 119/81 4.5 kg 1.626 m [place] 11/17/2022 1:25 PM Signed What is the reason for your visit today? New gp Who is your referring physician? Eliceo willams Are you having poor oral intake? NO Have you had unintentional weight loss of 15 lbs/7 Kg in the last 3-6 months? NO Bowels: regular Wound: clean AND dry Temperature: No Drains: No Winston Hannah DO 11/17/2022 7:06 PM Signed [facility] [place] Gastroparesis/Dysmotility Consultation SERVICE DATE: 11/17/2022 SERVICE TIME: 2:16 PM PRIMARY CARE PHYSICIAN: DO Isra Mauricio [facility] [address] [place] [address] My final recommendations will be communicated back to the requesting physician by way of shared Medical record or letter to requesting physician via US mail. 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 Despite improvements in constipation, obstipation as well as bloating she continues to struggle with daily severe medically refractory gastroesophageal reflux as well as nausea, vomiting, and upper abdominal pains. She is gradually losing weight and unable to tolerate most solid foods. It is quite peculiar that her gastric emptying time on 2020 smart pill was normal less than 4 hours, and the possibility of underlying functional dyspepsia. Overall she will require further work-up and evaluation to properly target and tailor her further treatments. PLAN I discussed surgical therapy for gastroparesis in detail. Mary Leal is candidate for upper endoscopy with pyloric dilation and Montiel placement. During the procedure we will evaluate her for gastritis and H. pylori as well -Barium Esophagram -Complete the previously ordered smart pill (currently ingested). -Follow-up after completion of endoscopy and Montiel testing as well as esophagram Pending on the status of her stomach Future considerations may centered around pyloromyotomy versus further reflux investigations Risks of the procedure including bleeding (including major bleeding requiring transfusion), perforation, infection/abscess, ulceration (need for adherence to acid suppressive therapy), exacerbation of symptoms, symptom recurrence, anesthesia related complications, cardiopulmonary events, thromboembolic events, aspiration/pneumonia, dental gum injury, failure to identify/treat a condition, need for additional procedures/surgeries, as well as other rare complications including were presented. Alternatives of Pyloroplasty, pyloromyotomy, Botox, and continued medical/dietary management were reviewed. Patient elects to proceed and full written consent was obtained. NAME: Mary Leal CLINIC NO: [id number] DATE OF SERVICE: November 17, 2022 This is an initial consultation for Mary Leal who was referred to me by Dr. Isra Masters for evaluation of medical refractory gastroparesis. My final recommendation will be communicated via shared electronic medical record. CHIEF COMPLAINT Idiopathic Gastroparesis HISTORY OF PRESENT ILLNESS Mary Leal is a 52 year old female who comes in today for surgical evaluation for management of gastroparesis. The patient has been evaluated thoroughly including an EGD, and gastric emptying study. History is notable for bipolar, depression, endometriosis, restless leg syndrome, ADHD, PTSD, asthma, HTN, appendectomy, anal fissure, and total hysterectomy GI issues began around 2019. Still cannot eat solid foods. Pain and nausea are the primary drivers. She vomits most things that she eats. Currently only to eat jello and purees 3 main symptoms are nausea, pain, and epigastric burning. Since TAC OANH, only thing that improved was constipation and some bloating. Duration of symptoms (months): 2132-6719 Weight changes in last 3 months: Steady 170lbs GERD: Uncontrollable belching. Severe heartburn and regurgitation. Currently on Dexilant with decent response but significant breakthrough. Bowel Movements: 5-6 BM per day, semi-formed. 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 Normal [facility] Telemedici pleasanton 11-16-2022 [facility] [id number] Mary Leal 1970 F Date Provider Department Center 11/16/2022 [facility] Gerardo Heal No family history on file Reason for Visit and Comments: Therapy [849] Telehealth Audio/video Visit [871] - WebEx Normal [facility] Hussain 11-09-2022 [facility] Telephone ([facility]) MARY LEAL ([id number]) 1970 F Date Time Provider Department 11/09/22 YONI TUTTLE [facility] During your visit today, we recorded the following information about you: Mick Doll 11/09/2022 9:49 AM Signed SENT PATIENTS RX TO PREFERRED LOCATION [facility] [phone] 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 - CPAP/BIPAP/OTHER Type .CPAPSettings into a note to see current settings/supplies/DME information. - Simethicone (GAS RELIEF, SIMETHICONE,) 125 mg chewable tablet Take 2 tablets by mouth three times daily as needed. - lactobacillus rhamnosus (CULTURELLE) 10 billion cell capsule Take 1 capsule by mouth once daily. - tiZANidine (ZANAFLEX) 2 mg tablet Take 1 tablet by mouth every 8 hours as needed. - traZODone (DESYREL) 50 mg tablet Take 150 mg by mouth daily at bedtime. - atorvastatin (LIPITOR) 20 mg tablet Take 20 mg by mouth once daily. - nystatin (MYCOSTATIN) cream Apply 1 application to affected area twice daily. - vortioxetine (TRINTELLIX) 10 mg tablet Take 10 mg by mouth once daily. - fluticasone (FLONASE) 50 mcg/actuation nasal spray Use 1 Morrison in each nostril once daily. - carBAMazepine XR (TEGRETOL XR) 400 mg 12 hr tablet Take 400 mg by mouth q 12 HR. - rOPINIRole (REQUIP) 2 mg tablet Take 2 mg by mouth twice daily. Takes 2 mg in the AM and 4 mg PM - albuterol HFA (PROVENTIL HFA, VENTOLIN HFA) 90 mcg/actuation inhaler inhale 2 puffs by mouth INTO THE LUNGS every 4 hours if needed - oflrfiteiqj-rgzbjfvrw-kgzpwzkz (TRELEGY ELLIPTA) 100-62.5-25 mcg Inhale 1 Puff as instructed once daily. - atenolol (TENORMIN) 50 mg tablet Take 50 mg by mouth once daily. Problem List As Of Date 11/09/2022 Noted Resolved Impingement syndrome of right shoulder [M75.41] 09/29/2020 Arthritis of right acromioclavicular joint [M19*09/29/2020 Partial nontraumatic rupture of right rotator c*09/29/2020 HTN (hypertension) [I10] Gastroparesis [K31.84] Esophageal dysphagia [R13.19] Bipolar 1 disorder (HCC) [F31.9] Obesity (BMI 30.0-34.9) [E66.9] Status post arthroscopy of right shoulder [Z98.*01/22/2021 Sleep disturbance- chronic [G47.9] 08/04/2021 Genitourinary syndrome of menopause [N95.8] 08/04/2021 Asthma [J45.909] GERD (gastroesophageal reflux disease) [K21.9] History of 2019 novel coronavirus disease (COVI* Pelvic floor dysfunction [M62.89] 12/24/2021 Lack of coordination [R27.9] 01/18/2022 Follow-up examination after colorectal surgery *01/18/2022 Chronic idiopathic constipation [K59.04] 03/15/2022 Chronic constipation [K59.09] 03/28/2022 Encounter Status:Closed by MICK DOLL on 11/09/22 [facility] CNPN Telephone ([facility]) MARY LEAL ([id number]) 1970 F Date Time Provider Department 11/09/22 ISRA MASTERS [facility] During your visit today, we recorded the following information about you: Karthikeyan Morrissey RN 11/09/2022 11:50 AM Signed Patient calling. She saw Dr. Masters on 10/11. He had ordered smart pill and she has not had luck with scheduling it. She is frustrated with smart pill department as no one returns her call. She is in constant pain, nauseated and she can barely eat. She would like to schedule an appt with Dr. Masters to discuss other tests she can do besides the smart pill. Appt placed on hold on 01/03 at 1030 - clerical to make it legit. Lilli Goldberg 11/09/2022 12:14 PM Addendum Spoke with patient. Smart Pill issue has been resolved, I am currently working with patient, Pre Access and Smart Pill department to expedite scheduling for 1st available. Please advise if appointment with general surgery would be appropriate to discuss surgical intervention. Isra Masters DO 11/09/2022 12:19 PM Signed Yes that would be fine thanks Lilli Denae 11/09/2022 1:21 PM Signed Scheduled 11/17 for Smart Pill at 10:30am and Dr. Hannah at 2:00 pm Allergies As of Date: 11/09/2022 Noted Allergy Reaction RISPERIDONE 07/27/2021 5 - Intolerance Comments: Breast discharge Date Reviewed: 10/11/2022 Reviewed by: Isra Masters DO - Fully Assessed Reason for Visit: Patient Update [1234] Prescriptions as of 11/09/2022 - Dexlansoprazole 60 mg CpDM take 1 capsule by mouth before breakfast - ramelteon (ROZEREM) 8 mg tablet Take 1 tablet by mouth daily at bedtime. - CPAP/BIPAP/OTHER Type .CPAPSettings into a note to see current settings/supplies/DME information. - Simethicone (GAS RELIEF, SIMETHICONE,) 125 mg chewable tablet Take 2 tablets by mouth three times daily as needed. - lactobacillus rhamnosus (CULTURELLE) 10 billion cell capsule Take 1 capsule by mouth once daily. - tiZANidine (ZANAFLEX) 2 mg tablet Take 1 tablet by mouth every 8 hours as needed. - traZODone (DESYREL) 50 mg tablet Take 150 mg by mouth daily at bedtime. - atorvastatin (LIPITOR) 20 mg tablet Take 20 mg by mouth once daily. - nystatin (MYCOSTATIN) cream Apply 1 application to affected area twice daily. - vortioxetine (TRINTELLIX) 10 mg tablet Take 10 mg by mouth once daily. - fluticasone (FLONASE) 50 mcg/actuation nasal spray Use 1 Morrison in each nostril once daily. - carBAMazepine XR (TEGRETOL XR) 400 mg 12 hr tablet Take 400 mg by mouth q 12 HR. - rOPINIRole (REQUIP) 2 mg tablet Take 2 mg by mouth twice daily. Takes 2 mg in the AM and 4 mg PM - albuterol HFA (PROVENTIL HFA, VENTOLIN HFA) 90 mcg/actuation inhaler inhale 2 puffs by mouth INTO THE LUNGS every 4 hours if needed - tudcyigdpyy-hphapbqvu-gysbxwcc (TRELEGY ELLIPTA) 100-62.5-25 mcg Inhale 1 Puff as instructed once daily. - atenolol (TENORMIN) 50 mg tablet Take 50 mg by mouth once daily. Problem List As Of Date 11/09/2022 Noted Resolved Impingement syndrome of right shoulder [M75.41] 09/29/2020 Arthritis of right acromioclavicular joint [M19*09/29/2020 Partial nontraumatic rupture of right rotator c*09/29/2020 HTN (hypertension) [I10] Gastroparesis [K31.84] Esophageal dysphagia [R13.19] Bipolar 1 disorder (HCC) [F31.9] Obesity (BMI 30.0-34.9) [E66.9] Status post arthroscopy of right shoulder [Z98.*01/22/2021 Sleep disturbance- chronic [G47.9] 08/04/2021 Genitourinary syndrome of menopause [N95.8] 08/04/2021 Asthma [J45.909] GERD (gastroesophageal reflux disease) [K21.9] History of 2019 novel coronavirus disease (COVI* Pelvic floor dysfunction [M62.89] 12/24/2021 Lack of coordination [R27.9] 01/18/2022 Follow-up examination after colorectal surgery *01/18/2022 Chronic idiopathic constipation [K59.04] 03/15/2022 Chronic constipation [K59.09] 03/28/2022 Encounter Status:Closed by KARTHIKEYAN MORRISSEY RN on 11/09/[address] [facility] FERRITINon 11-04-2022 FERRITIN (NG/ML) IN SER/PLAS 24.0 ng/mL Normal 11.0-307.0 [facility] Comment on above: Performed By: #### L [id number] #### [facility] (BEAKER) [address] [place] [address] Labon 11-04-2022 Lab [id number] Darrian Leal 1970 F Date Provider Department Center 11/04/20222-[facility] RESOURCE [facility] Comprehensiv No family history on file Normal [facility]illon 11-03-2022 Refill [id number] Darrian Leal 1970 F Date Provider Department Center 11/03/2022 [facility] Gerardo Heal No family history on file Reason for Visit and Comments: Med Refill [[id number]] [facility] CNPNon 11-02-2022 CNPN Telephone (NIQ) MARY LEAL ([id number]) 1970 F Date Time Provider Department 11/02/22 YONI TUTTLE During your visit today, we recorded the following information about you: Barber Marie 11/02/2022 12:35 PM Signed Received from [facility] Sleep Laboratory Report via fax. 8 pages indexed to chart. Yoni Tuttle MD 11/17/2022 3:10 PM Signed Ty - I'll order PAP titration and MCM pt re her OSH PSG results. Yoni Tuttle MD 11/17/2022 3:16 PM Signed 09/22/22: PSG from [facility]: Total (RDI) AHI by 3% desat 27.1, REM AHI 32.5 AHI by 4% desat 5.3 O2 Min 86%, O2 mean 95%. Notable sleep related hypoventilation Max TCO2 65 7.3% of TST with TCO2 50 -55 mmHg 41.3% of TST with TCO2 55 - 100 mmHg Hypnogram illustrates TCO2 rising from ~40 during wake to max 60's overnight. - PAP titration ordered Must have TCO2 Low threshold for transition to bilevel PAP, rhona for hypoventilation Yoni Tuttle MD 11/17/2022 3:16 PM Signed Addended by: YONI TUTTLE MD on: 11/17/2022 03:16 PM Modules accepted: Orders Yoni Tuttle MD 11/29/2022 1:53 PM Signed Yes, please continue with PAP titration. Not sure what is going on with her machine - could either be pap intolerance or a faulty device or incorrect settings. PAP titration would let us know if she has intolerance. If PAP titration demonstrates alternative settings, that were more tolerable, we can order DME to make those changes. Lastly, the titration may suggest she needs bipap for hypoventilation and thus we can order her a different device. Thank you, Allergies As of Date: 11/02/2022 Noted Allergy Reaction RISPERIDONE 07/27/2021 5 - Intolerance Comments: Breast discharge Date Reviewed: 10/11/2022 Reviewed by: Isra Masters DO - Fully Assessed Reason for Visit: Results - Sleep Study [3564] Primary Visit Diagnosis:CHUCKIE (obstructive sleep apnea) [G47.33] Order(s):PAP TITRATION PSG (CPAP, BIPAP, ASV) [[id number]] Order #: [id number] FUTURE Prescriptions as of 12/01/2022 - Cholecalciferol, Vitamin D3, (VITAMIN D) 25 mcg (1,000 unit) cap Take 1,000 Units by mouth once daily. - cyanocobalamin (VITAMIN B-12) 1,000 mcg tab Take 1,000 mcg by mouth once daily. - cyclobenzaprine (FLEXERIL) 10 mg tablet Take by mouth three times daily. - galcanezumab-gnlm (EMGALITY SYRINGE) 120 mg/mL syringe Inject subcutaneously once every month. Do not shake. - Dexlansoprazole 60 mg CpDM take 1 capsule by mouth before breakfast - CPAP/BIPAP/OTHER Type .CPAPSettings into a note to see current settings/supplies/DME information. - Simethicone (GAS RELIEF, SIMETHICONE,) 125 mg chewable tablet Take 2 tablets by mouth three times daily as needed. - traZODone (DESYREL) 50 mg tablet Take 150 mg by mouth daily at bedtime. - atorvastatin (LIPITOR) 20 mg tablet Take 20 mg by mouth once daily. - rOPINIRole (REQUIP) 2 mg tablet Take 2 mg by mouth twice daily. Takes 2 mg in the AM and 4 mg PM - njbnvtyjbsf-exzhchwmt-itcdlaas (TRELEGY ELLIPTA) 100-62.5-25 mcg Inhale 1 Puff as instructed once daily. Problem List As Of Date 11/02/2022 Noted Resolved Impingement syndrome of right shoulder [M75.41] 09/29/2020 Arthritis of right acromioclavicular joint [M19*09/29/2020 Partial nontraumatic rupture of right rotator c*09/29/2020 HTN (hypertension) [I10] Gastroparesis [K31.84] Esophageal dysphagia [R13.19] Bipolar 1 disorder (HCC) [F31.9] Obesity (BMI 30.0-34.9) [E66.9] Status post arthroscopy of right shoulder [Z98.*01/22/2021 Sleep disturbance- chronic [G47.9] 08/04/2021 Genitourinary syndrome of menopause [N95.8] 08/04/2021 Asthma [J45.909] GERD (gastroesophageal reflux disease) [K21.9] History of 2019 novel coronavirus disease (COVI* Pelvic floor dysfunction [M62.89] 12/24/2021 Lack of coordination [R27.9] 01/18/2022 Follow-up examination after colorectal surgery *01/18/2022 Chronic idiopathic constipation [K59.04] 03/15/2022 Chronic constipation [K59.09] 03/28/2022 Encounter Status:Closed by PATRICIA BENTON on 11/17/22 [facility] 10-27-2022 CNPN Telephone ([facility]) MARY LEAL ([id number]) 1970 F Date Time Provider Department 10/27/22 [facility]ERS [facility] During your visit today, we recorded the following information about you: Nelsy Pepe RN 10/27/2022 3:55 PM Signed Patient calling because she has not heard back from [facility] regarding scheduling her Smart Pill. States she has been waiting to hear back for a few week. Would someone be able to reach out to her and get her scheduled please? Nelsy Pepe RN 11/09/2022 3:01 PM Signed Patient scheduled for Smart Pill 11/17/22. 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 - CPAP/BIPAP/OTHER Type .CPAPSettings into a note to see current settings/supplies/DME information. - Simethicone (GAS RELIEF, SIMETHICONE,) 125 mg chewable tablet Take 2 tablets by mouth three times daily as needed. - lactobacillus rhamnosus (CULTURELLE) 10 billion cell capsule Take 1 capsule by mouth once daily. - tiZANidine (ZANAFLEX) 2 mg tablet Take 1 tablet by mouth every 8 hours as needed. - traZODone (DESYREL) 50 mg tablet Take 150 mg by mouth daily at bedtime. - atorvastatin (LIPITOR) 20 mg tablet Take 20 mg by mouth once daily. - nystatin (MYCOSTATIN) cream Apply 1 application to affected area twice daily. - vortioxetine (TRINTELLIX) 10 mg tablet Take 10 mg by mouth once daily. - fluticasone (FLONASE) 50 mcg/actuation nasal spray Use 1 Morrison in each nostril once daily. - carBAMazepine XR (TEGRETOL XR) 400 mg 12 hr tablet Take 400 mg by mouth q 12 HR. - rOPINIRole (REQUIP) 2 mg tablet Take 2 mg by mouth twice daily. Takes 2 mg in the AM and 4 mg PM - albuterol HFA (PROVENTIL HFA, VENTOLIN HFA) 90 mcg/actuation inhaler inhale 2 puffs by mouth INTO THE LUNGS every 4 hours if needed - synxdarnxlo-uokipzzop-dwjbzyml (TRELEGY ELLIPTA) 100-62.5-25 mcg Inhale 1 Puff as instructed once daily. - atenolol (TENORMIN) 50 mg tablet Take 50 mg by mouth once daily. Problem List As Of Date 10/27/2022 Noted Resolved Impingement syndrome of right shoulder [M75.41] 09/29/2020 Arthritis of right acromioclavicular joint [M19*09/29/2020 Partial nontraumatic rupture of right rotator c*09/29/2020 HTN (hypertension) [I10] Gastroparesis [K31.84] Esophageal dysphagia [R13.19] Bipolar 1 disorder (HCC) [F31.9] Obesity (BMI 30.0-34.9) [E66.9] Status post arthroscopy of right shoulder [Z98.*01/22/2021 Sleep disturbance- chronic [G47.9] 08/04/2021 Genitourinary syndrome of menopause [N95.8] 08/04/2021 Asthma [J45.909] GERD (gastroesophageal reflux disease) [K21.9] History of 2019 novel coronavirus disease (COVI* Pelvic floor dysfunction [M62.89] 12/24/2021 Lack of coordination [R27.9] 01/18/2022 Follow-up examination after colorectal surgery *01/18/2022 Chronic idiopathic constipation [K59.04] 03/15/2022 Chronic constipation [K59.09] 03/28/2022 Encounter Status:Closed by NELSY PEPE on 11/09/[address] [facility] 36on 10-24-2022 36 Faxed sleep study re port to [employer] as requested. Normal [facility]20[facility]ARY LE[facility] ([id number]) 1970 F Date Time Provider Department 10/24/22 ISRA MASTERS [facility] During your visit today, we recorded the following information about you: Nati Hernandez 10/24/2022 9:54 AM Signed Mary Leal is calling Isra Masters DO today with concern regarding her smart pill patient stated she has been calling and there has not been a response patient would like to know what would Dr. Masters like her to do so she can get scheduled with them please advise. Patient has been identified by name and birthdate. Person calling: self Call patient at: at home [phone] (home) [phone] (cell) Closing statement: Symptom Call: Thank you for calling [facility], your call is very important. A nurse will call in approximately 2-4 hours during business hours. If this is an emergency, please contact 911. Natiadonay Benton LPN 10/24/2022 1:12 PM Signed Please advise Thank you RIKI Quezada LPN 10/24/2022 2:09 PM Signed Thank you, let patient know, smart pill is being adressed and patient should receive a call once they have an answer. Ban Benton LPN Allergies As of Date: 10/24/2022 Noted Allergy Reaction RISPERIDONE 07/27/2021 5 - Intolerance Comments: Breast discharge Date Reviewed: 10/11/2022 Reviewed by: Isra Masters DO - Fully Assessed Reason for Visit: Patient Question [2307] Prescriptions as of 10/24/2022 - Dexlansoprazole 60 mg CpDM take 1 capsule by mouth before breakfast - ramelteon (ROZEREM) 8 mg tablet Take 1 tablet by mouth daily at bedtime. - CPAP/BIPAP/OTHER Type .CPAPSettings into a note to see current settings/supplies/DME information. - Simethicone (GAS RELIEF, SIMETHICONE,) 125 mg chewable tablet Take 2 tablets by mouth three times daily as needed. - lactobacillus rhamnosus (CULTURELLE) 10 billion cell capsule Take 1 capsule by mouth once daily. - tiZANidine (ZANAFLEX) 2 mg tablet Take 1 tablet by mouth every 8 hours as needed. - traZODone (DESYREL) 50 mg tablet Take 150 mg by mouth daily at bedtime. - atorvastatin (LIPITOR) 20 mg tablet Take 20 mg by mouth once daily. - nystatin (MYCOSTATIN) cream Apply 1 application to affected area twice daily. - vortioxetine (TRINTELLIX) 10 mg tablet Take 10 mg by mouth once daily. - fluticasone (FLONASE) 50 mcg/actuation nasal spray Use 1 Morrison in each nostril once daily. - carBAMazepine XR (TEGRETOL XR) 400 mg 12 hr tablet Take 400 mg by mouth q 12 HR. - rOPINIRole (REQUIP) 2 mg tablet Take 2 mg by mouth twice daily. Takes 2 mg in the AM and 4 mg PM - albuterol HFA (PROVENTIL HFA, VENTOLIN HFA) 90 mcg/actuation inhaler inhale 2 puffs by mouth INTO THE LUNGS every 4 hours if needed - wsbffiwjkdv-wytudipqc-eaqtbcjv (TRELEGY ELLIPTA) 100-62.5-25 mcg Inhale 1 Puff as instructed once daily. - atenolol (TENORMIN) 50 mg tablet Take 50 mg by mouth once daily. Problem List As Of Date 10/24/2022 Noted Resolved Impingement syndrome of right shoulder [M75.41] 09/29/2020 Arthritis of right acromioclavicular joint [M19*09/29/2020 Partial nontraumatic rupture of right rotator c*09/29/2020 HTN (hypertension) [I10] Gastroparesis [K31.84] Esophageal dysphagia [R13.19] Bipolar 1 disorder (HCC) [F31.9] Obesity (BMI 30.0-34.9) [E66.9] Status post arthroscopy of right shoulder [Z98.*01/22/2021 Sleep disturbance- chronic [G47.9] 08/04/2021 Genitourinary syndrome of menopause [N95.8] 08/04/2021 Asthma [J45.909] GERD (gastroesophageal reflux disease) [K21.9] History of 2019 novel coronavirus disease (COVI* Pelvic floor dysfunction [M62.89] 12/24/2021 Lack of coordination [R27.9] 01/18/2022 Follow-up examination after colorectal surgery *01/18/2022 Chronic idiopathic constipation [K59.04] 03/15/2022 Chronic constipation [K59.09] 03/28/2022 Encounter Status:Closed by BAN BENTON on 10/24/22 [facility] 10-20-2022 Amylase [Catalytic activity/Vol] 33 U/L Normal 25- 115 [facility] Comment on above: Performed By: #### L ACT #### [facility] [address] [place] [address] Dr. Mirian Velasco CBC AUTO DIFFon 10-20-2022 BASO # 0.0 103/ul Normal 0.0-0.1 [facility] Comment on above: Performed By: #### P T #### [facility] [address] [place] [address] Dr. Mirian Velasco Basophils/100 WBC (Bld) 0.2 % Normal 0.2-2.0 [facility] Comment on above: Performed By: #### P T #### [facility] [address] [place] [address] Dr. Mirian Velasco EO # 0.1 103/ul Normal 0.0-0.7 [facility] Comment on above: Performed By: #### P T #### [facility] [address] [place] [address] Dr. Mirian Velasco Eosinophils/100 WBC (Bld) 0.6 % Critically low 0.9-7. 0 [facility] Comment on above: Performed By: #### P T #### [facility] [address] [place] [address] Dr. Mirian Velasco Erythrocyte distribution wid th (RBC) [Ratio] 13.6 % Normal 11.0-15.0 [facility] Comment on above: Performed By: #### P T #### [facility] [address] [place] [address] Dr. Mirian Velasco Hematocrit (Bld) [Volume fraction] 41.0 % Normal 3 6.0-48.0 [facility] Comment on above: Performed By: #### P T #### [facility] [address] [place] [address] Dr. Mirian Velasco Hemoglobin (Bld) [Mass/Vol] 13.5 g/dL Normal 12.0-16. 0 [facility] Comment on above: Performed By: #### P T #### [facility] [address] [address] [address] Mirian Velasco IG # 0.06 10e3/ul Critically high 0.00-0.03 [facility] Comment on above: Performed By: #### P T #### [facility] [address] [place] [address] Dr. Mirian Velasco IG % 0.4 % Normal 0.0-0.5 [facility] Comment on above: Performed By: #### P T #### [facility] [address] [place] [address] Dr. Mirian Velasco LYMPH # 2.5 103/ul Normal 1.2-3.8 [facility] Comment on above: Performed By: #### P T #### [facility] [address] [place] [address] Dr. Mirian Velasco Lymphocytes/100 WBC (Bld) 17.5 % Critically low 20.5-6 0.0 [facility] Comment on above: Performed By: #### P T #### [facility] [address] [place] [address] Dr. Mirian Velasco MANUAL DIFF REQ NO Normal [facility] Comment on above: Performed By: #### P T #### [facility] [address] [place] [address] Dr. Mirian Velasco MCH (RBC) [Entitic mass] 28.1 pg Normal 26.7-34.0 [facility] Comment on above: Performed By: #### P T #### [facility] [address] [place] [address] Dr. Mirian Velasco MCHC (RBC) [Mass/Vol] 32.9 g/dL Normal 29.9-35.2 [facility] Comment on above: Performed By: #### P T #### [facility] [address] [place] [address] Dr. Mirian Velasco MCV (RBC) [Entitic vol] 85.2 fL Normal 81.0-99.0 [facility] Comment on above: Performed By: #### P T #### [facility] [address] [place] [address] Dr. Mirian Velasco MONO # 0.7 103/ul Normal 0.3-0.8 [facility] Comment on above: Performed By: #### P T #### [facility] [address] [place] [address] Dr. Mirian Velasco Monocytes/100 WBC (Bld) 4.5 % Normal 1.7-12.0 [facility] Comment on above: Performed By: #### P T #### [facility] [address] [place] [address] Dr. Mirian Velasco NEUT # 11.0 103/ul Critically high 1.4-6.5 [facility] Comment on above: Performed By: #### P T #### [facility] [address] [place] [address] Dr. Mirian Velasco Neutrophils/100 WBC (Bld) 76.8 % Critically high 43.0- 75.0 [facility] Comment on above: Performed By: #### P T #### [facility] [address] [place] [address] Dr. Mirian Velasco Platelet mean volume (Bld) [Entitic vol] 8.7 fL Critically low 9.5-13.5 [facility] Comment on above: Performed By: #### P T #### [facility] [address] [place] [address] Dr. Mirian Velasco PLT 390 103/ul Normal 150-450 The [facility] Comment on above: Performed By: #### P T #### [facility] [address] [place] [address] Dr. Mirian Velasco RBC 4.81 106/ul Normal 4.20-5.40 The [facility] Comment on above: Performed By: #### P T #### [facility] [address] [place] [address] Dr. Mirian Velasco WBC 14.3 103/ul Critically high 4.0-11.0 [facility] Comment on above: Performed By: #### P T #### [facility] [address] [place], [place] [address] ABD/PELV W CONon 10-20-20 CT ABD/PELV W CON EXAMINATION: CT ABD/ PELV W CON HISTORY: GENERALIZED ABDOMINAL PAIN COMPARISON: 04/17/2022 TECHNIQUE: CT of the abdomen and pelvis performed after the administration of IV contrast Dose reduction techniques were achieved by using automated exposure control and/or adjustment of mA and/or kV according to patient size and/or use of iterative reconstruction technique. FINDINGS: Liver: No suspicious liver lesions. Portal veins appear patent. Gallbladder: No gallstones. No evidence of acute cholecystitis. Spleen: Normal size. Pancreas: No suspicious pancreatic lesions. The pancreatic duct is not dilated. Adrenal glands: No adrenal nodules. Kidneys: No hydronephrosis or obstructing renal stones. Bladder / Pelvic organs: A few foci of air is seen within the urinary bladder. The bladder is otherwise unremarkable without wall thickening or visualized mass. Bowel: There is been a near complete colectomy, with visualized anastomosis of the small bowel to the sigmoid colon, about which the bowel is focally dilated due to expected lack of peristalsis, and otherwise without evidence for obstruction. Lymph nodes: No retroperitoneal, mesenteric, or pelvic lymphadenopathy. Peritoneum / Retroperitoneum: No free fluid or air within the abdomen. Vessels: No infrarenal aortic aneurysm. Bones and soft tissues: Degenerative changes of the spine. There is scar within the lower abdominal wall from prior postsurgical change. IMPRESSION: 1. No acute findings or significant interval change. 2. Postsurgical changes of the bowel, status post colectomy and small to large bowel re-anastomosis. 3. Scar in the lower anterior abdominal wall, with resolution of the phlegmon changes seen on prior. Electronically authenticated by: SALMA AMEZQUITA Date: 2022-10-20 12:35 Normal The [facility] l CULTURE BLOODon 10-20-2022 Microscopic examination of blood, culture Culture Observations: NO GROWTH AT 5 DAYS. [facility] Comment on above: Performed By: #### B [id number] ####[facility] [id number] [place] [place] [address]Dr. Mirian Velasco Microscopic examination of blood, culture Culture Observations: NO GROWTH AT 5 DAYS. Normal [facility] Comment on above: Performed By: #### B [id number] #### [facility] [address] [place] [address] Dr. 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 NO POTENTIAL PATHOGENS SEEN. Normal The [facility] Comment on above: Performed By: #### U RCX #### [facility] [address] [place] [address] Dr. Mirian Velasco ER URINE PROFILEon Bilirubin Ql (U) Negative Normal NEGATIVE [facility] Comment on above: Performed By: #### P T #### [facility] [address] [place] [address] Dr. Mirian Velasco Clarity (U) CLEAR Normal CLEAR The [facility] Comment on above: Performed By: #### P T #### [facility] [address] [place] [address] Dr. Mirian Velasco Color (U) LT. YELLOW Normal YELLOW The [facility] Comment on above: Performed By: #### P T #### [facility] [address] [place] [address] Dr. Mirian Velasco ERUAHD A micrscopic examina tion will be performed if indicated. Normal The [facility] [place] [facility] l Comment on above: Performed By: #### P T #### [facility] [address] [place] [address] Dr. Mirian Velasco Glucose Ql (U) Negative Normal NEGATIVE The [facility] Comment on above: Performed By: #### P T #### [facility] [address] [place] [address] Dr. Mirian Velasco Hemoglobin Ql (U) Negative Normal NEGATIVE [facility] Comment on above: Performed By: #### P T #### [facility] [address] [place] [address] Dr. Mirian Velasco Ketones Ql (U) Negative Normal NEGATIVE The [facility] Comment on above: Performed By: #### P T #### [facility] [address] [place] [address] Dr. Mirian Velasco LEUKOCYTES SMALL Abnormal NEGATIVE The [facility] Comment on above: Performed By: #### P T #### [facility] [address] [place] [address] Dr. Mirian Velasco Nitrite Ql (U) Negative Normal NEGATIVE [facility] Comment on above: Performed By: #### P T #### [facility] [address] [place] [address] Dr. Mirian Velasco pH (U) 7.0 [pH] Normal 5-9 [facility] Comment on above: Performed By: #### P T #### [facility] [address] [place] [address] Dr. Mirian Velasco SPEC GRAVITY 1.015 Normal 1.005-<=1.025 [facility] Comment on above: Performed By: #### P T #### [facility] [address] [place] [address] Dr. Mirian Velasco UA PROTEIN Negative Normal NEGATIVE/ TRACE The [facility] Comment on above: Performed By: #### P T #### [facility] [address] [place] [address] Dr. Mirian Velasco UR MICRO IND INDICATED Normal [facility] Comment on above: Performed By: #### P T #### [facility] [address] [place] [address] Dr. Mirian Velasco Urobilinogen Qn (U) 0.2 {Lyubov'U}/dL Normal 0.2 - 1. 0 [facility] Comment on above: Performed By: #### P T #### [facility] [address] [place] [address] Dr. Mirian Velasco LACTATE/LACTIC ACIDon 2021 Lactate [Moles/Vol] 1.3 mmol/L Normal 0.4-1.9 [facility] Comment on above: Performed By: #### L ACT #### [facility] [address] [place] [address] Dr. Mirian Velasco LIPASEon 10-20-2022 Lipase [Catalytic activity/Vol] 49.0 U/L Critically low 73.0-393.0 [facility] Comment on above: Performed By: #### P T #### [facility] [address] [place] [address] [address] Mirian Velasco PROF 14(COMP METB)on 10-20- 022 Albumin [Mass/Vol] 3.2 g/dL Critically low 3.4-5.0 [facility] Comment on above: Performed By: #### P T #### [facility] [address] [place] [address] Dr. Mirian Velasco Albumin/Globulin [Mass ratio] 0.9 {ratio} Normal [facility] Comment on above: Performed By: #### P T #### [facility] [address] [place] [address] Dr. Mirian Velasco ALP [Catalytic activity/Vol] 129 U/L Critically high 46 -116 [facility] Comment on above: Performed By: #### P T #### [facility] [address] [place] [address] Dr. Mirian Velasco ALT [Catalytic activity/Vol] 25 U/L Normal 14-59 [facility] Comment on above: Performed By: #### P T #### [facility] [address] [place] [address] Dr. Mirian Velasco Anion gap [Moles/Vol] 10.7 mmol/L Normal [facility] Comment on above: Performed By: #### P T #### [facility] [address] [place] [address] Dr. Mirian Velasco AST [Catalytic activity/Vol] 20 U/L Normal 15-37 [facility] Comment on above: Performed By: #### P T #### [facility] [address] [place] [address] Dr. Mirian Velasco Bilirubin [Mass/Vol] 0.5 mg/dL Normal 0.2-1.0 [facility] Comment on above: Performed By: #### P T #### [facility] [address] [place] [address] Dr. Mirian Velasco Calcium [Mass/Vol] 9.2 mg/dL Normal 8.5-10.1 [facility] Comment on above: Performed By: #### P T #### [facility] [address] [place] [address] [address] Mirian Velasco Chloride [Moles/Vol] 102 mmol/L Normal 98-107 [facility] Comment on above: Performed By: #### P T #### [facility] [address] [place] [address] [address] Mirian Velasco CO2 [Moles/Vol] 30.0 mmol/L Normal 21.0-32.0 [facility] Comment on above: Performed By: #### P T #### [facility] [address] [place] [address] [address] Mirian Velasco Creatinine [Mass/Vol] 0.68 mg/dL Normal 0.55-1.02 [facility] Comment on above: Performed By: #### P T #### [facility] [address] [place] [address] Dr. Mirian Velasco EGFR-AF INDONESIAN >60 Normal >=60 [facility] Comment on above: Performed By: #### P T #### [facility] [address] [place] [address] Dr. Mirian Velasco EGFR-NON AF INDONESIAN >60 Normal >=60 [facility] Comment on above: Performed By: #### P T #### [facility] [address] [place] [address] Dr. Mirian Velasco Globulin (S) [Mass/Vol] 3.7 g/dL Normal [facility] Comment on above: Performed By: #### P T #### [facility] [address] [place] [address] Dr. Mirian Velasco Glucose [Mass/Vol] 109 mg/dL Critically high 74-106 [facility] Comment on above: Performed By: #### P T #### [facility] [address] [place] [address] Dr. Mirian Velasco Potassium [Moles/Vol] 3.7 mmol/L Normal 3.5-5.1 [facility] Comment on above: Performed By: #### P T #### [facility] [address] [place] [address] [address] Mirian Velasco Protein [Mass/Vol] 6.9 g/dL Normal 6.4-8.2 [facility] Comment on above: Performed By: #### P T #### [facility] [address] [place] [address] Dr. Mirian Velasco Sodium [Moles/Vol] 139 mmol/L Normal 136-145 [facility] Comment on above: Performed By: #### P T #### [facility] [address] [place] [address] Dr. Mirian Velasco Urea nitrogen [Mass/Vol] 13.0 mg/dL Normal 7.0-18.0 [facility] Comment on above: Performed By: #### P T #### [facility] [address] [place] [address] Dr. Mirian Velasco Urea nitrogen/Creatinine [Mass ratio] 19.1 mg/mg Normal [facility] Comment on above: Performed By: #### P T #### [facility] [address] [place] [address] Dr. Mirian Velasco URINE MICROSCOPIC ONLYon BACTERIA TRACE Abnormal NONE SEEN [facility] Comment on above: Performed By: #### P T #### [facility] [address] [place] [address] Dr. Mirian Velasco Bacteria identified Cx Nom (U) INDICATED Normal [facility] Comment on above: Performed By: #### P T #### [facility] [address] [place] [address] Dr. Mirian Velasco CAST NONE SEEN Normal NONE SEEN The [facility] Comment on above: Performed By: #### P T #### [facility] [address] [place] [address] Dr. Mirian Velasco Crystals LM Nom (Urine sed) NONE SEEN Normal NONE SEE N [facility] Comment on above: Performed By: #### P T #### [facility] [address] [place] [address] Dr. Mirian Velasco Epithelial cells LM Ql (Urin e sed) MODERATE Abnormal NONE SEEN /RARE [facility] Comment on above: Performed By: #### P T #### [facility] [address] [place] [address] Dr. Mirian Velasco MUCOUS NONE SEEN Normal NONE SEEN [facility] Comment on above: Performed By: #### P T #### [facility] [address] [place] [address] Dr. Mirian Velasco RBC NONE SEEN Abnormal 0-2 [facility] Comment on above: Performed By: #### P T #### [facility] [address] [place] [address] Dr. Mirian Velasco WBC 2-5 Abnormal NONE SEEN [facility] Comment on above: Performed By: #### P T #### [facility] [address] [place] [address] Dr. Mirian Velasco YEAST PRESENT Abnormal NONE SEEN [facility] Comment on above: Result Comment: RARE BUDDING YEAST Performed By: #### P T #### [facility] [address] [place] [address] Dr. Mirian Nixon 10-17-2022 [facility] Telephone ([facility]) MARY LEAL ([id number]) 1970 F Date Time Provider Department 10/17/22 YONI TUTTLE [facility] During your visit today, we recorded the following information about you: Mick Doll 10/17/2022 9:19 AM Signed Faxed order, office notes, demographics, and sleep study to: [facility]IMA name: [facility] fax: [phone] SAIMA ph: ALSO SENT A REQUEST FOR PTS PSG FROM [facility] Allergies As of Date: 10/17/2022 Noted Allergy Reaction RISPERIDONE 07/27/2021 5 - Intolerance Comments: Breast discharge Date Reviewed: 10/11/2022 Reviewed by: Isra S Masters, DO - Fully Assessed Reason for Visit: PAP Rx Faxed [[phone]] Cmt: DME: [facility] Prescriptions as of 10/17/2022 - ramelteon (ROZEREM) 8 mg tablet Take 1 tablet by mouth daily at bedtime. - CPAP/BIPAP/OTHER Type .CPAPSettings into a note to see current settings/supplies/DME information. - Simethicone (GAS RELIEF, SIMETHICONE,) 125 mg chewable tablet Take 2 tablets by mouth three times daily as needed. - lactobacillus rhamnosus (CULTURELLE) 10 billion cell capsule Take 1 capsule by mouth once daily. - tiZANidine (ZANAFLEX) 2 mg tablet Take 1 tablet by mouth every 8 hours as needed. - Dexlansoprazole 60 mg CpDM take 1 capsule by mouth before breakfast - traZODone (DESYREL) 50 mg tablet Take 150 mg by mouth daily at bedtime. - atorvastatin (LIPITOR) 20 mg tablet Take 20 mg by mouth once daily. - nystatin (MYCOSTATIN) cream Apply 1 application to affected area twice daily. - vortioxetine (TRINTELLIX) 10 mg tablet Take 10 mg by mouth once daily. - fluticasone (FLONASE) 50 mcg/actuation nasal spray Use 1 Morrison in each nostril once daily. - carBAMazepine XR (TEGRETOL XR) 400 mg 12 hr tablet Take 400 mg by mouth q 12 HR. - rOPINIRole (REQUIP) 2 mg tablet Take 2 mg by mouth twice daily. Takes 2 mg in the AM and 4 mg PM - albuterol HFA (PROVENTIL HFA, VENTOLIN HFA) 90 mcg/actuation inhaler inhale 2 puffs by mouth INTO THE LUNGS every 4 hours if needed - mjyhiqjyclw-bfhhtgbjq-mcbyxmzb (TRELEGY ELLIPTA) 100-62.5-25 mcg Inhale 1 Puff as instructed once daily. - atenolol (TENORMIN) 50 mg tablet Take 50 mg by mouth once daily. 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 POINT OF CARE GLUCOSEon 10-06 Glucose [Mass/Vol] 131 mg/dL Critically high 74-106 [facility] Comment on above: Performed By: #### P OCGLUC ####[facility] [id number] [place] [address]Dr. Mirian Velasco Glucose [Mass/Vol] 113 mg/dL Critically high 74-106 [facility] Comment on above: Performed By: #### P OCGLUC ####[facility] [id number] [place], [place] [address]DrReno Velasco XR FOOT RT 2Von 10-17-2022 XR FOOT RT 2V EXAM: XR FOOT RT 2V HISTORY: Pain COMPARISON: 07/27/2022 TECHNIQUE: 2 minutes and 44 seconds of fluoroscopy. 33 images. FINDINGS: Interval posterior calcaneal osteotomy transfixed with 2 screws. Anterior calcaneal osteotomy with wedged spacer. Medial cuneiform osteotomy with wedged spacer. IMPRESSION: Interval triple arthrodesis Electronically authenticated by: NICKI DACOSTA Date: 2022-10-17 18:04 Normal [facility] Covid-19 PCR (CVDTBH)on SARS-CoV-2 (COVID-19) RNA JOSÉ MIGUEL+probe Ql (Unsp spec) Not detected Normal NOT DETECTED [facility] Comment on above: Result Comment: This test is not yet approved or cleared by the [place] FDA. When there are no FDA-approved or cleared tests available, and other criteria are met, FDA can make tests available under an emergency access mechanism called an Emergency Use Authorization (EUA). The EUA for this test is supported by the [place] of Health and Human Service's (HHS's) declaration that circumstances exist to justify the emergency use of in vitro diagnostics for the detection and/or diagnosis of the virus that causes COVID-19. This EUA will remain in effect (meaning this test can be used) for the duration of the COVID-19 declaration justifying emergency of IVDs, unless it is terminated or revoked by FDA (after which the test may no longer be used). When diagnostic testing is negative, the possibility of a false negative should be considered in the context of a patient's recent exposures and the presence of clinical signs and symptoms consistent with SARS-CoV-2. Performed By: #### [facility] #### [facility] [address] [place] [address] Dr. Mirian Velasco Diagnostic Mammogram, Unilat eral Left w/Russel (3D)on 09-28-2022 Diagnostic Mammogram, Unilateral Left w/Russel (3D) CLINICAL HISTORY: Diagnostic Mammogram COMPARISON: Screening mammogram 09/14/2022. Other priors dating back to 2018. TECHNIQUE: 2D and 3D mammogram imaging of the left breast was performed. RESULT: DENSITY: Heterogeneously dense, which may obscure small masses. The asymmetry within the central left breast is less distinct on the diagnostic views and appears overall similar to multiple prior mammograms consistent with overlapping tissue and adjacent vessel. No suspicious findings. IMPRESSION: BIRADS 2 : BENIGN FINDINGS, NORMAL INTERVAL FOLLOW UP. FOLLOW UP: 12 months DENSITY: Heterogeneously dense MAMMOGRAPHY IS VERY IMPORTANT TO YOUR HEALTH. THE CURRENT [place] [employer] AND [employer] GUIDELINES RECOMMENDS ANNUAL MAMMOGRAPHY BEGINNING AT AGE 42 THIS FACILITY USES A REMINDER SYSTEM TO ENSURE ALL PATIENTS RECEIVE REMINDER NOTIFICATIONS AT THE APPROPRIATE TIME BASED ON THE RECOMMENDATIONS OF THIS EXAM. Board Certified Radiologist. Accredited by the ACR and FDA. Report reported and signed by Dawna Lizarraga on 09/28/2022 1307 Normal [facility] l Specialist CBC AUTO DIFFon 09-26-2022 BASO # 0.1 103/ul Normal 0.0-0.1 [facility] Comment on above: Performed By: #### L ACT #### [facility] [address] [place] [address] [address] Mirian Velasco Basophils/100 WBC (Bld) 0.8 % Normal 0.2-2.0 [facility] Comment on above: Performed By: #### L ACT #### [facility] [address] [address] [address] Mirian Velasco EO # 0.1 103/ul Normal 0.0-0.7 [facility] Comment on above: Performed By: #### L ACT #### [facility] [address] [place] [address] Dr. Mirian Velasco Eosinophils/100 WBC (Bld) 1.5 % Normal 0.9-7.0 [facility] Comment on above: Performed By: #### L ACT #### [facility] [address] [address] [address] Mirian Velasco Erythrocyte distribution wid th (RBC) [Ratio] 13.4 % Normal 11.0-15.0 [facility] Comment on above: Performed By: #### L ACT #### [facility] [address] [address] [address] Mirian Velasco Hematocrit (Bld) [Volume fraction] 41.3 % Normal 3 6.0-48.0 [facility] Comment on above: Performed By: #### L ACT #### [facility] [address] [address] [address] Mirian Velasco Hemoglobin (Bld) [Mass/Vol] 13.4 g/dL Normal 12.0-16. 0 [facility] Comment on above: Performed By: #### L ACT #### [facility] [address] [place] [address] Dr. Mirian Velasco IG # 0.04 10e3/ul Critically high 0.00-0.03 [facility] Comment on above: Performed By: #### L ACT #### [facility] [address] [place] [address] [address] Mirian Velasco IG % 0.5 % Normal 0.0-0.5 The [facility] Comment on above: Performed By: #### L ACT #### [facility] [address] [place] [address] Dr. Mirian Velasco LYMPH # 2.5 103/ul Normal 1.2-3.8 [facility] Comment on above: Performed By: #### L ACT #### [facility] [address] [place] [address] Dr. Mirian Velasco Lymphocytes/100 WBC (Bld) 27.7 % Normal 20.5-60.0 [facility] Comment on above: Performed By: #### L ACT #### [facility] [address] [place] [address] Dr. Mirian Velasco MANUAL DIFF REQ NO Normal [facility] Comment on above: Performed By: #### L ACT #### [facility] [address] [place] [address] Dr. Mirian Velasco MCH (RBC) [Entitic mass] 27.6 pg Normal 26.7-34.0 [facility] Comment on above: Performed By: #### L ACT #### [facility] [address] [place] [address] Dr. Mirian Velasco MCHC (RBC) [Mass/Vol] 32.4 g/dL Normal 29.9-35.2 [facility] Comment on above: Performed By: #### L ACT #### [facility] [address] [place] [address] Dr. Mirian Velasco MCV (RBC) [Entitic vol] 85.0 fL Normal 81.0-99.0 [facility] Comment on above: Performed By: #### L ACT #### [facility] [address] [place] [address] Dr. Mirian Velasco MONO # 0.6 103/ul Normal 0.3-0.8 [facility] Comment on above: Performed By: #### L ACT #### [facility] [address] [place] [address] Dr. Mirian Velasco Monocytes/100 WBC (Bld) 6.9 % Normal 1.7-12.0 T [facility] Comment on above: Performed By: #### L ACT #### [facility] [address] [place] [address] [address] Mirian Velasco NEUT # 5.6 103/ul Normal 1.4-6.5 The [facility] Comment on above: Performed By: #### L ACT #### [facility] [address] [place] [address] Dr. Mirian Velasco Neutrophils/100 WBC (Bld) 62.6 % Normal 43.0-75.0 The [facility] Comment on above: Performed By: #### L ACT #### [facility] [address] [place] [address] Dr. Mirian Velasco Platelet mean volume (Bld) [Entitic vol] 8.6 fL Critically low 9.5-13.5 The [facility] Comment on above: Performed By: #### L ACT #### [facility] [address] [place] [address] Dr. Mirian Velasco PLT 372 103/ul Normal 150-450 The [facility] ostal Comment on above: Performed By: #### L ACT #### [facility] [address] [place] [address] Dr. Mirian Velasco RBC 4.86 106/ul Normal 4.20-5.40 The [facility] Comment on above: Performed By: #### L ACT #### [facility] [address] [place] [address] Dr. Mirian Velasco WBC 8.9 103/ul Normal 4.0-11.0 The [facility] Comment on above: Performed By: #### L ACT #### [facility] [address] [place] [address] Dr. Mirian Velasco PROF CHEM 8 (BAS METB)on Anion gap [Moles/Vol] 8.0 mmol/L Normal [facility] Comment on above: Performed By: #### P T #### [facility] [address] [place] [address] [address] Mirian Velasco Calcium [Mass/Vol] 9.0 mg/dL Normal 8.5-10.1 The [facility] Comment on above: Performed By: #### P T #### [facility] [address] [place] [address] [address] Mirian Velasco Chloride [Moles/Vol] 106 mmol/L Normal 98-107 The [facility] Comment on above: Performed By: #### P T #### [facility] [address] [place] [address] [address] Mirian Velasco CO2 [Moles/Vol] 30.3 mmol/L Normal 21.0-32.0 The [facility] Comment on above: Performed By: #### P T #### [facility] [address] [place] [address] [address] Mirian Velasco Creatinine [Mass/Vol] 0.71 mg/dL Normal 0.55-1.02 [facility] Comment on above: Performed By: #### P T #### [facility] [address] [place] [address] [address] Mirian Velasco EGFR-AF INDONESIAN >60 Normal >=60 The [facility] Comment on above: Performed By: #### P T #### [facility] [address] [place] [address] [address] Mirian Velasco EGFR-NON AF INDONESIAN >60 Normal >=60 The [facility] Comment on above: Performed By: #### P T #### [facility] [address] [place] [address] [address] Mirian Velasco Glucose [Mass/Vol] 81 mg/dL Normal 74-106 The [facility] Comment on above: Performed By: #### P T #### [facility] [address] [place] [address] [address] Mirian Velasco Potassium [Moles/Vol] 4.3 mmol/L Normal 3.5-5.1 The [facility] Comment on above: Performed By: #### P T #### [facility] [address] [place] [address] [address] Mirian Velasco Sodium [Moles/Vol] 140 mmol/L Normal 136-145 [facility] Comment on above: Performed By: #### P T #### [facility] [address] [place] [address] [address] Mirian Velasco Urea nitrogen [Mass/Vol] 16.0 mg/dL Normal 7.0-18.0 [facility] Comment on above: Performed By: #### P T #### [facility] [address] [place] [address] [address] Mirian Velasco Urea nitrogen/Creatinine [Mass ratio] 22.5 mg/mg Normal [facility] Comment on above: Performed By: #### P T #### [facility] [address] [place] [address] [address] Mirian Velasco CHUYITA Antinuclear Antibodieson 09-22-2022 Antinuclear Abs, IFA Negative Normal . [facility] Comment on above: Order Comment: Reaso n for Exam Generalized pain Result Comment: Nega tive <1:80 Borderline 1:80 Positive >1:80 ICAP nomenclature: AC-0 For more information about Hep-2 cell patterns use ANApatterns.org, the official website for the International Consensus on Antinuclear Antibody (CHUYITA) Patterns (ICAP). Performed at: [facility] [address] [id number] Adult Ministries Director: Erick Neville PhD, Phone: [phone] PERFORMED BY: [place] [address] PATHOLOGIST SUSTAINABILITY OFFICER LEVAR CASE M.D. Performed By: #### T 4T, ESR, URIC, CRP, TSH3 #### [place] [address] [place] #### RA, CHUYITA #### [facility] , C reactive protein [Mass/vol ume] in Serum or PlasmaOrdered By: Annette Harris on 09-22-2022 CRP [Mass/Vol] 0.6 mg/dL 0.0-1.0 [facility] C-Reactive Proteinon 022 C-Reactive Protein 0.6 mg/dL Normal 0.0-1.0 mg/dL [facility] [employer] Other C-Reactive Protein 0.6 mg/dL Normal 0.0-1.0 [facility] Comment on above: Order Comment: Reaso n for Exam Generalized pain Performed By: #### T 4T, ESR, URIC, CRP, TSH3 #### [facility] [address] [place] [address] [place] #### RA, CHUYITA #### [facility] , Erythrocyte Sedimentation Ra lian 09-22-2022 ESR (Bld) [Velocity] 4 mm/h Normal 0-29 [facility] [employer] Other Comment on above: Order Comment: Reaso n for Exam Generalized pain Result Comment: PERF ORMED BY: [place] [address] PATHOLOGIST SUSTAINABILITY OFFICER LEVAR CASE M.D. Performed By: #### T 4T, ESR, URIC, CRP, TSH3 #### [address] #### RA, CHUYITA #### [facility] , Erythrocyte sedimentation ra te by Photometric methodOrdered By: Annette Harris on 09-22-2022 ESR Photometric method (Bld) [Velocity] 4 mm/hr 0-29 [facility] Rheumatoid Factoron 09-22-20 22 Rheumatoid Factor <10.0 Normal <14.0 [facility] Comment on above: Order Comment: Reaso n for Exam Generalized pain Result Comment: Perf ormed at: - [facility] [address] [id number] Adult Ministries Director: Erick Neville PhD, Phone: [phone] Performed By: #### T 4T, ESR, URIC, CRP, TSH3 #### [facility] [address] [place] [address] [place] #### RA, CHUYITA #### [facility] , Serum nuclear antibody titer Ordered By: Annette Harris on 09-22-2022 Nuclear Ab (S) [Titer] Negative . [facility] Comment on above: Negative <1:80 Julio jasso 1:80 Positive >1:80ICAP nomenclature: AC-0For more information about Hep-2 cell patterns useANApatterns.org, the official website for theInternational Consensus on Antinuclear Antibody (CHUYITA)Patterns (ICAP).Performed at: [employer] - [facility] [address] [id number] Director: Erick Neville PhD, Phone: [phone] Serum or plasma rheumatoid f actor measurement (units/volume)Ordered By: Annette Harris on 09-22-2022 Rheumatoid factor Qn [IU]/mL <14.0 [facility] Comment on above: Performed at: [facility] [address] [id number] Director: Erick Neville PhD, Phone: [phone] Serum or plasma thyroxine (T 4) measurement (mass/volume)Ordered By: Annette Harris on 09-22-2022 T4 [Mass/Vol] 9.82 ug/dL 5.39-11.82 [facility] Serum or plasma uric acid me asurement (mass/volume)Ordered By: Annette Harris on 09-22-2022 Urate [Mass/Vol] 4.2 mg/dL 2.6-7.2 [facility] TSH DL <= 0.005 mIU/L QnOrde red By: Annette Harris on 09-22-2022 TSH Qn 1.98 m[IU]/L 0.45-5.33 [facility] Thyroid Stimulating Hormoneo n 09-22-2022 TSH Qn 1.07040244654 m[IU]/L Normal 0.45-5.33 u[iU ]/mL [employer] Other TSH Qn 1.98 m[IU]/L Normal 0.45-5.33 [facility] Comment on above: Order Comment: Reaso n for Exam Generalized pain Result Comment: PERF ORMED BY: [facility] [address] [place] [address] PATHOLOGIST SUSTAINABILITY OFFICER LEVAR CASE M.D. Performed By: #### T 4T, ESR, URIC, CRP, TSH3 #### [place] [address] [place] #### RA, CHUYITA #### [facility] , Thyroxine (T4) Totalon 09-22 Thyroxine (T4) Total 9.82 ug/dL Normal 5.39-11.82 ug/d L [facility] [employer] Other T4 [Mass/Vol] 9.82 ug/dL Normal 5.39-11.82 [facility] Comment on above: Order Comment: Reaso n for Exam Generalized pain Performed By: #### T 4T, ESR, URIC, CRP, TSH3 #### [address] #### RA, CHUYITA #### [facility] , Uric Acidon 09-22-2022 Urate [Mass/Vol] 4.4587425 mg/dL Normal 2.6-7.2 mg/dL [facility] [employer] Other Urate [Mass/Vol] 4.2 mg/dL Normal 2.6-7.2 [facility] Comment on above: Order Comment: Reaso n for Exam Generalized pain Performed By: #### T 4T, ESR, URIC, CRP, TSH3 #### [place] [address] [place] #### RA, CHUYITA #### [facility] , XR knee BI 2Von 09-22-2022 XR knee BI 2V [facility] [place] [address] XRay Report Signed Patient: Mary Leal MR#: [id number] : 1970 Acct:[id number] Age/Sex: 52 / F ADM Date: 09/22/22 Loc: [facility] Room: Type: [facility] CLI Attending Dr: Annette Harris MD Copies to: Annette Harris MD Ordering Provider: Annette Harris MD Date of Service: 09/22/22 XR/XR knee BI 2V: Knee pain XR knee BI 2V 09/22/2022 9:23 AM SIGNS AND SYMPTOMS: Bilateral knee pain right greater than left PROTOCOL: Frontal and lateral radiographs of the bilateral knees COMPARISON: None FINDINGS: There is evidence of prior ACL repair in the left knee with mild narrowing of the weightbearing joint spaces on the left. The joint spaces are otherwise preserved. There is no fracture or dislocation. No joint effusion or soft tissue swelling. XR/XR knee BI 2V IMPRESSION: Status post ACL repair on the left. Mild degenerative changes are noted in the weightbearing joint spaces of the left. No acute bony injury. Impression dictated by: Joshua Garcia M.D.09/22/2022 2:17 PM Dictation Location: [place] [address] Transcribed By: [facility] 09/22/22 1417 Dictated By: Joshua Garcia II, MD 09/22/22 1415 Signed By: 09/22/22 1417 [facility] XR knee BI 2V [facility] [employer] Other XR knee BI 2V [facility] Main [facility] [employer] Other XR knee BI 2V [address] [place] [address] [employer] Other XR knee BI 2V [address] [employer] Other XR knee BI 2V XRay Report [employer] Other XR knee BI 2V Signed [employer] Other XR knee BI 2V Patient: ElvisDarrian Kenny MR#: [id number] [facility] [employer] Other XR knee BI 2V 863 [employer] Other XR knee BI 2V : 1970 Acct:[id number] [place] [employer] Other XR knee BI 2V Age/Sex: 52 / F ADM Date: 09/22/22 [place] [employer] Other XR knee BI 2V Loc: [facility] Room: Type: REG CLI [employer] Other XR knee BI 2V Attending Dr: Annette Harris MD [employer] Other XR knee BI 2V Copies to: Annette Harris MD [employer] Other XR knee BI 2V Ordering Provider: Carey Harris MD [place] [employer] Other XR knee BI 2V Date of Service: 09/22/22 [employer] Other XR knee BI 2V [id number]) XR/XR knee BI 2V: Knee pain [employer] Other XR knee BI 2V XR knee BI 2V 09/22/2022 9:23 AM [employer] Other XR knee BI 2V SIGNS AND SYMPTOMS: Bilateral knee pain right greater than left [employer] Other XR knee BI 2V PROTOCOL: Frontal an d lateral radiographs of the bilateral knees [employer] Other XR knee BI 2V COMPARISON: None [employer] Other XR knee BI 2V FINDINGS: [employer] Other XR knee BI 2V There is evidence of prior ACL repair in the left knee with mild narrowing of the weightbearing [employer] [facility] [employer] Other XR knee BI 2V joint spaces on the left. The joint spaces are otherwise preserved. There is no fracture or [employer] Other XR knee BI 2V dislocation. No join t effusion or soft tissue swelling. [employer] Other XR knee BI 2V X R/XR knee BI 2V [employer] Other XR knee BI 2V IMPRESSION: [employer] Other XR knee BI 2V Status post ACL repa ir on the left. [employer] Other XR knee BI 2V Mild degenerative ch anges are noted in the weightbearing joint spaces of the left. [employer] Other XR knee BI 2V No acute bony injury. [employer] Other XR knee BI 2V Impression dictated by: Joshua Garcia M.D.09/22/2022 2:17 PM [employer] Other XR knee BI 2V Dictation Location: [place] [address] [employer] Other XR knee BI 2V Transcribed By: P[facility] 09/22/22 1417 [employer] Other XR knee BI 2V Dictated By: Joshua Garcia II, MD 09/22/22 [facility]5 [employer] Other XR knee BI 2V Signed By: [employer] Other XR knee BI 2V 09/22/22 [facility]8 [employer] Other XR shoulder BI min 2Von 09-06 XR shoulder BI min 2V [facility] Main [place] [address] [place] [address] XRay Report Signed Patient: Mary Leal MR#: [id number] : 1970 Acct:[id number] Age/Sex: 52 / F ADM Date: 09/22/22 Loc: [facility] Room: Type: [facility] CLI Attending Dr: Annette Harris MD Copies to: Annette Harris MD Ordering Provider: Annette Harris MD Date of Service: 09/22/22 XR/XR shoulder BI min 2V: Shoulder pain XR shoulder BI min 2V 09/22/2022 9:23 AM SIGNS AND SYMPTOMS: Bilateral shoulder pain with limited range of motion PROTOCOL: Frontal, Grashey, scapular Y, and axillary views of the bilateral shoulders COMPARISON: 02/26/2018 FINDINGS: There has been bony resorption of the lateral margin of the clavicle on the right suggesting osteomyelitis is which may be degenerative or traumatic. Mild hypertrophy of the AC joint is noted. The glenohumeral joint is preserved on the right. There is subcortical sclerosis greater tuberosity of the right suggesting underlying rotator cuff abnormalities. This is new when compared to the prior exam. The visualized right hemithorax is grossly intact. There is mild hypertrophy of the left acromioclavicular joint. There is mild subcortical sclerosis of the greater tuberosity in the left suggesting underlying rotator cuff abnormalities. The glenohumeral joint is preserved. There is no fracture or dislocation. Visualized left hemithorax is grossly intact. There is partial visualization of intervertebral disc arthroplasty is noted within the lower cervical spine. Rudimentary ribs are noted at C7, right greater than left XR/XR shoulder BI min 2V IMPRESSION: Degenerative changes are noted in the bilateral shoulders with findings suspicious for bilateral rotator cuff abnormalities as above. 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, right greater than left Impression dictated by: Joshua Garcia M.D.09/22/2022 2:20 PM Dictation Location: [place] [address] Transcribed By: [facility] 09/22/22 1420 Dictated By: Joshua Garcia II, MD 09/22/22 1414 Signed By: 09/22/22 142 [facility] XR shoulder BI min 2V [id number]) XR/XR shoulder BI min 2V: Shoulder pain [facility] [employer] Other XR shoulder BI min 2V XR shoulder BI min 2V 09/22/2022 9:23 AM [facility] [employer] Other XR shoulder BI min 2V SIGNS AND SYMPTOMS : Bilateral shoulder pain with limited range of motion [facility] [employer] Other XR shoulder BI min 2V PROTOCOL: Frontal, Grashey, scapular Y, and axillary views of the bilateral shoulders [facility] [employer] Other XR shoulder BI min 2V COMPARISON: 02/26/2018 [employer] Other XR shoulder BI min 2V There has been bon y resorption of the lateral margin of the clavicle on the right suggesting [employer] Other XR shoulder BI min 2V osteomyelitis is w hich may be degenerative or traumatic. Mild hypertrophy of the AC joint is noted. [employer] Other XR shoulder BI min 2V The glenohumeral j oint is preserved on the right. There is subcortical sclerosis greater tuberosity [employer] Other XR shoulder BI min 2V of the right sugge sting underlying rotator cuff abnormalities. This is new when compared to the [employer] Other XR shoulder BI min 2V prior exam. The vi sualized right hemithorax is grossly intact. [employer] [employer] Other XR shoulder BI min 2V There is mild hype rtrophy of the left acromioclavicular joint. There is mild subcortical sclerosis [facility] [employer] Other XR shoulder BI min 2V of the greater tub erosity in the left suggesting underlying rotator cuff abnormalities. The [employer] Other XR shoulder BI min 2V glenohumeral joint is preserved. There is no fracture or dislocation. Visualized left hemithorax is [employer] Other XR shoulder BI min 2V grossly intact. [employer] Other XR shoulder BI min 2V There is partial v isualization of intervertebral disc arthroplasty is noted within the lower [employer] Other XR shoulder BI min 2V cervical spine. Ru dimentary ribs are noted at C7, right greater than left [employer] Other XR shoulder BI min 2V XR/XR shoulder BI min 2V [employer] Other XR shoulder BI min 2V Degenerative velasco es are noted in the bilateral shoulders with findings suspicious for bilateral [employer] Other XR shoulder BI min 2V rotator cuff abnor malities as above. [employer] Other XR shoulder BI min 2V Interval osteolysi s of the lateral margin of the right clavicle is noted. [employer] Other XR shoulder BI min 2V Rudimentary ribs a re noted at C7, right greater than left [employer] Other XR shoulder BI min 2V Impression dictate d by: Joshua Garcia M.D.09/22/2022 2:20 PM [employer] Other XR shoulder BI min 2V Transcribed By: KT Thorpe 09/22/22 [facility] [employer] Other XR shoulder BI min 2V Dictated By: Joshua Garcia II, MD 09/22/22 [facility]1 [employer] Other XR shoulder BI min 2V 09/22/22 [facility]6 [employer] Other SCREENING MAMMOGRAM W/RUSSEL, BILATERAL*on 09-14-2022 SCREENING MAMMOGRAM W/RUSSEL, BILATERAL* CLINICAL HISTORY: Screening Mammogram COMPARISON: 06/28/2021, 04/08/2020, and 04/05/2019. TECHNIQUE: 2D and 3D Tomosynthesis of the right and left breasts was performed. FINDINGS: Both breasts remain heterogeneously dense. An asymmetric density within the central posterior left breast on the CC image is not Identified on the MLO projection. Focal compression mammograms (and possibly directed ultrasound) of the left breast are suggested. There are no areas of suspicious microcalcifications or areas of architectural distortion identified. No evidence of skin thickening. IMPRESSION: BIRADS 0 : ADDITIONAL IMAGING EVALUATION NEEDED. FOCAL COMPRESSION MAMMOGRAMS (AND POSSIBLY DIRECTED ULTRASOUND) OF THE LEFT BREAST ARE SUGGESTED. Board certified radiologist. Accredited by the ACR and FDA. MAMMOGRAPHY IS VERY IMPORTANT TO YOUR HEALTH. CURRENT [place] [employer] GUIDELINES RECOMMENDS ANNUAL MAMMOGRAPHY BEGINNING AT AGE 40. THIS FACILITY USUALLY USES A REMINDER SYSTEM TO ENSURE ALL POSITIONS RECEIVED REMINDER NOTIFICATIONS AT THE TIME BASED ON THE RECOMMENDATIONS OF THIS EXAM. Report reported and signed by Zaida Diaz on 09/16/2022 1334 Normal [facility] Specialist Tobacco Screening.on 022 Adult depression screening assessment No [facility] [employer] 250 DO Work Phone: Tobacco use status [facility]PH[facility] b) No M [facility] [employer] 250 DO Work Phone: COVID Quick Testingon 2021 Result Negative [facility] [employer] Other AMYLASEon 04-17-2022 Amylase [Catalytic activity/Vol] 38 U/L Normal 25- 115 [facility] Comment on above: Performed By: #### P T #### [facility] [address] [place] [address] Dr. Mirian Velasco CBC AUTO DIFFon 04-17-2022 BASO # 0.1 103/ul Normal 0.0-0.[address] [facility] ostal Comment on above: Performed By: #### L ACT #### [facility] [address] [place] [address] Dr. Mirian Velasco Basophils/100 WBC (Bld) 1.0 % Normal 0.2-2.0 [facility] Comment on above: Performed By: #### L ACT #### [facility] [address] [place] [address] Dr. Mirian Velasco EO # 0.2 103/ul Normal 0.0-0.7 The [facility] Comment on above: Performed By: #### L ACT #### [facility] [address] [place] [address] Dr. Mirian Velasco Eosinophils/100 WBC (Bld) 3.3 % Normal 0.9-7.0 [facility] Comment on above: Performed By: #### L ACT #### [facility] [address] [place] [address] Dr. Mirian Velasco Erythrocyte distribution wid th (RBC) [Ratio] 12.0 % Normal 11.0-15.0 [facility] Comment on above: Performed By: #### L ACT #### [facility] [address] [place] [address] Dr. Mirian Velasco Hematocrit (Bld) [Volume fraction] 37.3 % Normal 3 6.0-48.0 [facility] Comment on above: Performed By: #### L ACT #### [facility] [address] [place] [address] Dr. Miiran Velasco Hemoglobin (Bld) [Mass/Vol] 12.1 g/dL Normal 12.0-16. 0 [facility] Comment on above: Performed By: #### L ACT #### [facility] [address] [place] [address] Dr. Mirian Velasco IG # 0.03 10e3/ul Normal 0.00-0.03 [facility] Comment on above: Performed By: #### L ACT #### [facility] [address] [place] [address] Dr. Mirian Velasco IG % 0.4 % Normal 0.0-0.5 [facility] Comment on above: Performed By: #### L ACT #### [facility] [address] [place] [address] Dr. Mirian Velasco LYMPH # 1.8 103/ul Normal 1.2-3.8 [facility] Comment on above: Performed By: #### L ACT #### [facility] [address] [place] [address] Dr. Mirian Velasco Lymphocytes/100 WBC (Bld) 25.2 % Normal 20.5-60.0 [facility] Comment on above: Performed By: #### L ACT #### [facility] [address] [place] [address] Dr. Mirian Velasco MANUAL DIFF REQ NO Normal [facility] Comment on above: Performed By: #### L ACT #### [facility] [address] [place] [address] [address] Mirian Velasco MCH (RBC) [Entitic mass] 29.0 pg Normal 26.7-34.0 [facility] Comment on above: Performed By: #### L ACT #### [facility] [address] [place] [address] [address] Mirian Velasco MCHC (RBC) [Mass/Vol] 32.4 g/dL Normal 29.9-35.2 [facility] Comment on above: Performed By: #### L ACT #### [facility] [address] [place] [address] [address] Mirian Velasco MCV (RBC) [Entitic vol] 89.4 fL Normal 81.0-99.0 [facility] Comment on above: Performed By: #### L ACT #### [facility] [address] [place] [address] Dr. Mirian Velasco MONO # 0.4 103/ul Normal 0.3-0.[address] [facility] ostal Comment on above: Performed By: #### L ACT #### [facility] [address] [place] [address] Dr. Mirian Velasco Monocytes/100 WBC (Bld) 5.8 % Normal 1.7-12.0 [facility] Comment on above: Performed By: #### L ACT #### [facility] [address] [place] [address] Dr. Mirian Velasco NEUT # 4.6 103/ul Normal 1.4-6.[address] [facility] Comment on above: Performed By: #### L ACT #### [facility] [address] [place] [address] Dr. Mirian Velasco Neutrophils/100 WBC (Bld) 64.3 % Normal 43.0-75.0 [facility] Comment on above: Performed By: #### L ACT #### [facility] [address] [place] [address] Dr. Mirian Velasco Platelet mean volume (Bld) [Entitic vol] 8.6 fL Critically low 9.5-13.5 [facility] pital Comment on above: Performed By: #### L ACT #### [facility] [address] [place], [place] [address] Dr. Mirian Velasco PLT 597 103/ul Critically high 150-450 [facility] Comment on above: Performed By: #### L ACT #### [facility] [address] [place], [place] [address] Dr. Mirian Velasco RBC 4.17 106/ul Critically low 4.20-5.40 [facility] Comment on above: Performed By: #### L ACT #### [facility] [address] [place], [place] [address] Dr. Mirian Velasco WBC 7.2 103/ul Normal 4.0-11.0 The [facility]spital Comment on above: Performed By: #### L ACT #### [facility] [address] [place], [place] [address] ABD/PELVIS WO CONon 04-17 CT ABD/PELVIS WO CON EXAM: CT ABD/PELVIS WO CON INDICATION: Acute right-sided flank pain. Recent colectomy and ileostomy reversal on March 28, 2022 COMPARISON: None. TECHNIQUE: Multiple contiguous axial CT images of the abdomen and pelvis were obtained without the use of intravenous contrast. Sagittal and coronal reconstructions were performed. Dose reduction techniques were achieved by using: automated exposure control and/or adjustment of mA and /or kV according to patient size and/or use of iterative reconstruction technique. FINDINGS: Evaluation of visceral organs limited by noncontrast technique. LOWER CHEST: Clear lung bases. The heart is normal in size. No pericardial or pleural effusion. ABDOMEN: No renal, ureteral, or bladder calculi. No perinephric fatty stranding or hydronephrosis. Changes of colectomy with mild mesenteric inflammatory stranding. Normal caliber bowel. No significant bowel thickening or inflammation. Normal liver, gallbladder, pancreas, spleen, and adrenal glands. Nonaneurysmal abdominal aorta. No abdominal adenopathy or ascites. No free intra-abdominal air or fluid collection. PELVIS: Hysterectomy. Unremarkable adnexa and bladder. Mild to moderate pelvic fatty stranding. No free pelvic fluid or adenopathy. MUSCULOSKELETAL: Right lower quadrant subcutaneous soft tissue inflammatory stranding from recent ileostomy reversal. Midline lower anterior abdominal wall subcutaneous soft tissue fluid collection measuring 6.2 x 3.6 x 2.6 cm. No acute osseous abnormality or suspicious lesion. IMPRESSION: 1. No acute abdominal or pelvic process identified. No evidence of obstructive uropathy. 2. Expected mild inflammation in the abdominal mesentery and pelvis from recent colectomy and ileostomy reversal. 3. Lower anterior abdominal wall fluid collection may reflect postprocedural incisional simple fluid or seroma. Developing abscess not excluded. Clinical correlation recommended. Electronically authenticated by: LORRI TRIPLETT Date: 2022-04-17 11:19 Normal [facility] ER URINE PROFILEon 2 Bilirubin Ql (U) Negative Normal NEGATIVE The [facility] Comment on above: Performed By: #### P T #### [facility] [address] [place] [address] Dr. Mirian Velasco Clarity (U) CLEAR Normal CLEAR [facility] Comment on above: Performed By: #### P T #### [facility] [address] [place] [address] Dr. Mirian Velasco Color (U) YELLOW Normal YELLOW The [facility]spital Comment on above: Performed By: #### P T #### [facility] [address] [place] [address] Dr. Mirian Velasco ERUAHD A micrscopic examina tion will be performed if indicated. Normal [facility] Comment on above: Performed By: #### P T #### [facility] [address] [place] [address] [address] Mirian Velasco Glucose Ql (U) Negative Normal NEGATIVE The [facility] Comment on above: Performed By: #### P T #### [facility] [address] [place] [address] [address] Mirian Velasco Hemoglobin Ql (U) Negative Normal NEGATIVE The [facility] Comment on above: Performed By: #### P T #### [facility] [address] [place] [address] [address] Mirian Velasco Ketones Ql (U) Negative Normal NEGATIVE The [facility] Comment on above: Performed By: #### P T #### [facility] [address] [place] [address] Dr. Mirian Velasco LEUKOCYTES Negative Normal NEGATIVE The [facility] Comment on above: Performed By: #### P T #### [facility] [address] [place] [address] Dr. Mirian Velasco Nitrite Ql (U) Negative Normal NEGATIVE [facility] Comment on above: Performed By: #### P T #### [facility] [address] [place] [address] Dr. Mirian Velasco pH (U) 5.5 [pH] Normal 5-9 The [facility] Comment on above: Performed By: #### P T #### [facility] [address] [place] [address] Dr. Mirian Velasco SPEC GRAVITY >=1.030 Abnormal 1.005-<=1.025 [facility] Comment on above: Performed By: #### P T #### [facility] [address] [place] [address] Dr. Mirian Velasco UA PROTEIN Negative Normal NEGATIVE/ TRACE [facility] Comment on above: Performed By: #### P T #### [facility] [address] [place] [address] Dr. Mirian Velasco UR MICRO IND NOT INDICATED Normal [facility] Comment on above: Performed By: #### P T #### [facility] [address] [place] [address] Dr. Mirian Velasco Urobilinogen Qn (U) 0.2 {Lyubov'U}/dL Normal 0.2 - 1. 0 [facility] Comment on above: Performed By: #### P T #### [facility] [address] [place] [address] Dr. Mirian Velasco LIPASEon 04-17-2022 Lipase [Catalytic activity/Vol] 117.0 U/L Normal 73.0 -393.0 [facility] Comment on above: Performed By: #### P T #### [facility] [address] [place] [address] Dr. Mirian Velasco PROF 14(COMP METB)on 022 Albumin [Mass/Vol] 3.5 g/dL Normal 3.4-5.0 [facility] Comment on above: Performed By: #### P T #### [facility] [address] [place] [address] Dr. Mirian Velasco Albumin/Globulin [Mass ratio] 0.9 {ratio} Normal [facility] Comment on above: Performed By: #### P T #### [facility] [address] [place] [address] [address] Mirian Velasco ALP [Catalytic activity/Vol] 237 U/L Critically high 46 -116 [facility] Comment on above: Performed By: #### P T #### [facility] [address] [place] [address] Dr. Mirian Velasco ALT [Catalytic activity/Vol] 53 U/L Normal 14-59 [facility] Comment on above: Performed By: #### P T #### [facility] [address] [place] [address] Dr. Mirian Velasco Anion gap [Moles/Vol] 11.0 mmol/L Normal [facility] Comment on above: Performed By: #### P T #### [facility] [address] [place] [address] Dr. Mirian Velasco AST [Catalytic activity/Vol] 45 U/L Critically high 15 -37 [facility] Comment on above: Performed By: #### P T #### [facility] [address] [place] [address] Dr. Mirian Velasco Bilirubin [Mass/Vol] 0.2 mg/dL Normal 0.2-1.0 [facility] Comment on above: Performed By: #### P T #### [facility] [address] [place] [address] Dr. Mirian Velasco Calcium [Mass/Vol] 9.3 mg/dL Normal 8.5-10.1 [facility] Comment on above: Performed By: #### P T #### [facility] [address] [place] [address] Dr. Mirian Velasco Chloride [Moles/Vol] 105 mmol/L Normal 98-107 [facility] Comment on above: Performed By: #### P T #### [facility] [address] [place] [address] [address] Mirian Velasco CO2 [Moles/Vol] 29.5 mmol/L Normal 21.0-32.0 [facility] Comment on above: Performed By: #### P T #### [facility] [address] [place] [address] [address] Mirian Velasco Creatinine [Mass/Vol] 0.69 mg/dL Normal 0.55-1.02 [facility] Comment on above: Performed By: #### P T #### [facility] [address] [place] [address] [address] Mirian Velasco EGFR-AF INDONESIAN >110 Normal >=60 [facility] Comment on above: Performed By: #### P T #### [facility] [address] [place] [address] [address] Mirian Velasco EGFR-NON AF INDONESIAN >90 Normal >=60 [facility] Comment on above: Performed By: #### P T #### [facility] [address] [place] [address] [address] Mirian Velasco Globulin (S) [Mass/Vol] 4.0 g/dL Normal [facility] Comment on above: Performed By: #### P T #### [facility] [address] [place] [address] [address] Mirian Velasco Glucose [Mass/Vol] 107 mg/dL Critically high 74-106 [facility] Comment on above: Performed By: #### P T #### [facility] [address] [place] [address] [address] Mirian Velasco Potassium [Moles/Vol] 4.5 mmol/L Normal 3.5-5.1 [facility] Comment on above: Performed By: #### P T #### [facility] [address] [place] [address] [address] Mirian Velasco Protein [Mass/Vol] 7.5 g/dL Normal 6.4-8.2 [facility] Comment on above: Performed By: #### P T #### [facility] [address] [place], [place] [address] Dr. Mirian Velasco Sodium [Moles/Vol] 141 mmol/L Normal 136-145 [facility] Comment on above: Performed By: #### P T #### [facility] [address] [place], [place] [address] Dr. Mirian Velasco Urea nitrogen [Mass/Vol] 11.0 mg/dL Normal 7.0-18.0 [facility] Comment on above: Performed By: #### P T #### [facility] [address] [place], [place] [address] Dr. Mirian Velasco Urea nitrogen/Creatinine [Mass ratio] 15.9 mg/mg Normal [facility] Comment on above: Performed By: #### P T #### [facility] [address] [place] [address] [address] Mirian Velasco XR CHEST 1 Von 04-17-2022 XR CHEST 1 V EXAM: Chest x-ray HISTORY: Pain. COMPARISON: 02/20/2022 TECHNIQUE: AP portable upright view of the chest. FINDINGS: Heart and Vascularity are unremarkable. Lungs are free of focal infiltrates. No effusions are noted. Impression: No acute heart or lung disease identified. Electronically authenticated by: NICKI BUTT Date: 2022-04-17 11:03 Normal [facility] Basic metabolic 2000 panelon 04-05-2022 Anion gap [Moles/Vol] 13 mmol/L Normal 9-18 [facility] Comment on above: Order Comment: Speci men Type: BLOOD SPECIMEN Ordering Facility: [facility] Address: [address] [address] Performed By: #### 5 8410-2 #### [facility] CLIA [id number] [place] [address] [place] Calcium [Mass/Vol] 9.0 mg/dL Normal 8.5-10.2 [facility] Comment on above: Order Comment: Leanne terry Type: BLOOD SPECIMEN Ordering Facility: [facility] Address: [address] [address] Performed By: #### 5 8410-2 #### [facility] CLIA [id number] [place] [address] [place] Chloride [Moles/Vol] 104 mmol/L Normal 97-105 [facility] Comment on above: Order Comment: Speci men Type: BLOOD SPECIMEN Ordering Facility: [facility] Address: [address] [place] [address] Performed By: #### 5 8410-2 #### [facility] CLIA [id number] [address] [place] [address] [place] CO2 [Moles/Vol] 25 mmol/L Normal 22-30 [facility] Comment on above: Order Comment: Speci men Type: BLOOD SPECIMEN Ordering Facility: [facility] Address: [address] [place] [address] Performed By: #### 5 8410-2 #### [facility] CLIA [id number] [address] [place] [address] [place] Creatinine [Mass/Vol] 0.65 mg/dL Normal 0.58-0.96 [facility] Comment on above: Order Comment: Speci men Type: BLOOD SPECIMEN Ordering Facility: [facility] Address: [address] [place] [address] Performed By: #### 5 8410-2 #### [facility] CLIA [id number] [address] [place] [address] [place] ESTIMATED GLOMERULAR FILTRAT ION RATE 108 mL/min/1.73m??? Normal >=60 [facility] Comment on above: Order Comment: Speci men Type: BLOOD SPECIMEN Ordering Facility: [facility] Address: [address] [place] [address] Result Comment: Mary mated Glomerular Filtration Rate (eGFR) is calculated using the 2020 CKD-EPI creatinine equation. This equation utilizes serum creatinine, sex, and age as parameters. The creatinine assay has traceable calibration to isotope dilution-mass spectrometry. Refer to KDIGO guidelines for clinical interpretation. In patients with unstable renal function, e.g. those with acute kidney injury, the eGFR may not accurately reflect actual GFR. Performed By: #### 5 8410-2 #### [facility] CLIA [id number] [address] [place] [address] [place] Glucose [Mass/Vol] 109 mg/dL High 74-99 [facility] Comment on above: Order Comment: Leanne terry Type: BLOOD SPECIMEN Ordering Facility: [facility] Address: [address] [place] [address] Result Comment: The [place] Diabetes [employer] (ADA) provides guidance for cutoff values for fasting glucose and random glucose. The ADA defines fasting as no caloric intake for at least 8 hours. Fasting plasma glucose results between 100 to 125 mg/dL indicate increased risk for diabetes (prediabetes). Fasting plasma glucose results greater than or equal to 126 mg/dL meet the criteria for diagnosis of diabetes. In the absence of unequivocal hyperglycemia, results should be confirmed by repeat testing. In a patient with classic symptoms of hyperglycemia or hyperglycemic crisis, random plasma glucose results greater than or equal to 200 mg/dL meet the criteria for diagnosis of diabetes. Reference: Standards of Medical Care in Diabetes 2016, [place] [employer] Association. Diabetes Care. 2016.39(Suppl 1). Performed By: #### 5 8410-2 #### [facility] CLIA [id number] [address] [place] [address] [place] Potassium [Moles/Vol] 3.9 mmol/L Normal 3.7-5.1 [facility] Comment on above: Order Comment: Leanne terry Type: BLOOD SPECIMEN Ordering Facility: [facility] Address: [address] [place] [address] Performed By: #### 5 8410-2 #### [facility] CLIA [id number] [address] [place] [address] [place] Sodium [Moles/Vol] 142 mmol/L Normal 136-144 [facility] Comment on above: Order Comment: Leanne terry Type: BLOOD SPECIMEN Ordering Facility: [facility] Address: [address] [place] [address] Performed By: #### 5 8410-2 #### [facility] CLIA [id number] [address] [place] [address] [place] Urea nitrogen [Mass/Vol] 7 mg/dL Normal 7-21 [facility] Comment on above: Order Comment: Speci men Type: BLOOD SPECIMEN Ordering Facility: [facility] Address: [address] [place] [address] Performed By: #### 5 8410-2 #### [facility] CLIA [id number] [address] [place] [address] [place] CBC W Auto Differential pane l (Bld)on 04-05-2022 Basophils (Bld) [#/Vol] 0.05 10*3/uL Normal <0.11 [facility] Comment on above: Order Comment: Speci men Type: BLOOD SPECIMENOrdering Facility: [facility] Address: [address] [place] [address] Performed By: #### B MP #### [place] [id number] Basophils/100 WBC (Bld) 0.7 % Normal [facility] Comment on above: Order Comment: Speci men Type: BLOOD SPECIMENOrdering Facility: [facility] Address: [address] [place] [address] Performed By: #### B MP #### [address] Differential cell count method Nom (Bld) Auto Normal [facility] Comment on above: Order Comment: Speci men Type: BLOOD SPECIMENOrdering Facility: [facility] Address: [address] [place] [address] Performed By: #### B MP #### [place] [id number] Eosinophils (Bld) [#/Vol] 0.55 10*3/uL High <0.46 [facility] Comment on above: Order Comment: Speci men Type: BLOOD SPECIMENOrdering Facility: [facility] Address: [address] [place] [address] Performed By: #### B MP #### [place] [id number] Eosinophils/100 WBC (Bld) 8.2 % Normal [facility] Comment on above: Order Comment: Speci men Type: BLOOD SPECIMENOrdering Facility: [facility] Address: [address] [place] [address] Performed By: #### B MP #### [place] [id number] Erythrocyte distribution wid th (RBC) [Ratio] 12.8 % Normal 11.5-15.0 [facility] Comment on above: Order Comment: Speci men Type: BLOOD SPECIMENOrdering Facility: [facility] Address: [address] [place] [address] Performed By: #### B MP #### [place] [id number] Hematocrit (Bld) [Volume fraction] 31.1 % Low 3 6.0-46.0 [facility] Comment on above: Order Comment: Speci men Type: BLOOD SPECIMENOrdering Facility: [facility] Address: [address] [place] [address] Performed By: #### B MP #### [place] [phone] Hemoglobin (Bld) [Mass/Vol] 10.5 g/dL Low 11.5-15. 5 [facility] Comment on above: Order Comment: Speci men Type: BLOOD SPECIMENOrdering Facility: [facility] Address: [address] [place] [address] Performed By: #### B MP #### [place] [phone] IMMATURE GRAN % 0.4 % Normal [facility] Comment on above: Order Comment: Speci men Type: BLOOD SPECIMENOrdering Facility: [facility] Address: [address] [place] [address] Performed By: #### B MP #### [phone] IMMATURE GRAN ABS 0.03 k/uL Normal <0.10 [facility] Comment on above: Order Comment: Speci men Type: BLOOD SPECIMENOrdering Facility: [facility] Address: [address] [place] [address] Performed By: #### B MP #### [phone] Lymphocytes (Bld) [#/Vol] 1.47 10*3/uL Normal 1.00-4.0 0 [facility] Comment on above: Order Comment: Speci men Type: BLOOD SPECIMENOrdering Facility: [facility] Address: [address] [place] [address] Performed By: #### B MP #### [phone] Lymphocytes/100 WBC (Bld) 22.0 % Normal [facility] Comment on above: Order Comment: Speci men Type: BLOOD SPECIMENOrdering Facility: [facility] Address: [address] [place] [address] Performed By: #### B MP #### [phone] MCH (RBC) [Entitic mass] 29.9 pg Normal 26.0-34.0 [facility] Comment on above: Order Comment: Speci men Type: BLOOD SPECIMENOrdering Facility: [facility] Address: [address] [place] [address] Performed By: #### B MP #### [address] [place] [phone] MCHC (RBC) [Mass/Vol] 33.8 g/dL Normal 30.5-36.0 [facility] Comment on above: Order Comment: Speci men Type: BLOOD SPECIMENOrdering Facility: [facility] Address: [address] [place] [address] Performed By: #### B MP #### [address] [place] [phone] MCV (RBC) [Entitic vol] 88.6 fL Normal 80.0-100.0 [facility] Comment on above: Order Comment: Speci men Type: BLOOD SPECIMENOrdering Facility: [facility] Address: [address] [place], [place] [id number] Performed By: #### B MP #### [place] [address] Monocytes (Bld) [#/Vol] 0.50 10*3/uL Normal <0.87 [facility] Comment on above: Order Comment: Speci men Type: BLOOD SPECIMENOrdering Facility: [facility] Address: [address] [place] [address] Performed By: #### B MP #### [place] [address] Monocytes/100 WBC (Bld) 7.5 % Normal [facility] Comment on above: Order Comment: Speci men Type: BLOOD SPECIMENOrdering Facility: [facility] Address: [address] [place] [address] Performed By: #### B MP #### [address] [place] [phone] Neutrophils (Bld) [#/Vol] 4.08 10*3/uL Normal 1.45-7.5 0 [facility] Comment on above: Order Comment: Speci men Type: BLOOD SPECIMENOrdering Facility: [facility] Address: [address] [place] [address] Performed By: #### B MP #### [phone] Neutrophils/100 WBC (Bld) 61.2 % Normal [facility] Comment on above: Order Comment: Speci men Type: BLOOD SPECIMENOrdering Facility: [facility] Address: [address] [place] [address] Performed By: #### B MP #### [address] [place] [phone] Nucleated RBC (Bld) [#/Vol] 10*3/uL Normal <0.01 [facility] Comment on above: Order Comment: Speci men Type: BLOOD SPECIMENOrdering Facility: [facility] Address: [address] [place] [address] Performed By: #### B MP #### [address] [place] [phone] Nucleated RBC/100 WBC (Bld) [Ratio] 0.0 /100 WBC Normal [facility] Comment on above: Order Comment: Speci men Type: BLOOD SPECIMENOrdering Facility: [facility] Address: [address] [place] [address] Performed By: #### B MP #### [address] [place] [phone] Platelet mean volume (Bld) [Entitic vol] 8.9 fL Low 9.0-12.7 [facility] Comment on above: Order Comment: Speci men Type: BLOOD SPECIMENOrdering Facility: [facility] Address: [address] [place] [address] Performed By: #### B MP #### [place] [phone] Platelets (Bld) [#/Vol] 455 10*3/uL High 150-400 [facility] Comment on above: Order Comment: Speci men Type: BLOOD SPECIMENOrdering Facility: [facility] Address: [address] [place] [address] Performed By: #### B MP #### [phone] RBC (Bld) [#/Vol] 3.51 10*6/uL Low 3.90-5.20 [facility] Comment on above: Order Comment: Speci men Type: BLOOD SPECIMENOrdering Facility: [facility] Address: [address] [place] [address] Performed By: #### B MP #### [place] [phone] WBC (Bld) [#/Vol] 6.68 10*3/uL Normal 3.70-11.00 [facility] Comment on above: Order Comment: Speci men Type: BLOOD SPECIMENOrdering Facility: [facility] Address: [address] [place] [address] Performed By: #### B MP #### [facility] [address] [place] [address] [facility] HNO ID: [id number] Author: Jessi Sheets APRN.[email or web address] Service: Colorectal Author Type: Nurse Practitioner Type: Discharge Summary Filed: 04/05/2022 11:10 AM Note Text: Attestation signed by Mary Obrien MD at 04/05/2022 12:54 PM [facility] STAFF PHYSICIAN NOTE OF PERSONAL INVOLVEMENT IN CARE I have reviewed the discharge summary documented by the nurse practitioner and I personally participated in the tejada components. I have confirmed and edited as necessary, the PFSH and ROS obtained by others. I have discussed the case and management of the patient's care. Mary Obrien MD Date of Service: April 05, 2022 DISCHARGE SUMMARY PATIENT NAME: Mary Leal ADMISSION DATE: 03/28/2022 DISCHARGE DATE: 04/05/2022 ATTENDING PHYSICIAN: Mary Obrien MD Code Status: Not on file Highest Readmission Risk Score: 16 The 30 day readmissions risk score is derived from an internally validated risk model which evaluates patient level characteristics, utilization history, medication orders and lab results up until the day of discharge. Patients with a score of 40 or above are considered highest risk for readmission. Specific patient level drivers will be listed at the bottom of the summary. CONSULTING TEAMS DURING HOSPITALIZATION: [facility] Treatment Team: Attending Provider: Mary Obrien MD REASON FOR HOSPITALIZATION: scheduled surgery DIAGNOSIS: Principal Problem: Chronic constipation POA: Yes Resolved Problems: * No resolved hospital problems. * Sepsis Ruled Out OPERATIONS DURING HOSPITALIZATION: Laparoscopic Total Abdominal Colectomy, Ileostomy Takedown, Ileorectal Anastomosis, Flexible Sigmoidoscopy PROCEDURES DURING HOSPITALIZATION: No procedures performed HOSPITAL COURSE: Ms Leal is a 51 year old female who was admitted for scheduled surgery with Dr. Obrien - Laparoscopic Total Abdominal Colectomy, Ileostomy Takedown, Ileorectal Anastomosis, Flexible Sigmoidoscopy. Post-op on the regular nursing floor. POD1 clear liquid diet, given miralax daily. POD2 advanced to GI soft. Bowel function with liquids stools and no flatus. DVT ppx with lovenox during admission. She became distended and nauseated, made NPO with ice chips only. Pain controlled with TAPs and a NEGATIVE DEVELOPER. Remained nauseated. POD4 re-advanced to full liquids and tolerated small amounts. Continued to have bowel function without flatus. Again she became nauseous so diet made NPO again on POD5. POD6 she had not improved so a CT AP was done, normal post surgical results. Labs and vital signs remained stable. Following the CT she clinically improved. Diet advanced to clears and then GI soft again. Tolerated well. Bowel function improved with flatus and stools. On 04/05/2022 she was discharged in stable condition with follow up scheduled. Transitions of Care Critical Issues: n/a LABS AND PROCEDURES PENDING AT DISCHARGE: No pending results. FINAL DIAGNOSIS Colon and terminal ileum with ileostomy, resection: - Colon with patchy active colitis, submucosal fibrosis, acute serositis, and fibrovascular adhesions (see comment). - Small bowel with focal transmural defect, acute serositis, fibrovascular adhesions, and changes consistent with ileostomy site. - Benign lymph nodes. PATIENT CONDITION AT DISCHARGE: Stable DISCHARGE DISPOSITION: Home with Self Care Discharge Physical Exam: VITAL SIGNS: BP 97/69 Pulse 75 Temp 37 ?C (98.6 ?F) (Oral) Resp 18 Ht 162.6 cm (5' 4 ) Wt 83 kg (183 lb) SpO2 95% BMI 31.41 kg/m? INFORMATION PROVIDED TO PATIENT: discharge instructions ALLERGIES Allergen Reactions - Risperidone Intolerance Breast discharge DISCHARGE MEDICATION: Current Discharge Medication List START taking these medications oxyCODONE IR (ROXICODONE) 5 mg Take 5 mg by mouth every 6 hours as needed for pain. Qty: 25 tablet Refills: 0 Associated Diagnoses:Post-op pain tiZANidine (ZANAFLEX) 2 mg Take 2 mg by mouth every 8 hours as needed. Qty: 30 tablet Refills: 0 CONTINUE these medications which have CHANGED lactobacillus rhamnosus (CULTURELLE) 1 capsule Take 1 capsule by mouth once daily. Qty: 30 capsule Refills: 0 CONTINUE these medications which have NOT CHANGED Dexlansoprazole 60 mg CpDM take 1 capsule by mouth before breakfast Qty: 30 capsule Refills: 5 Associated Diagnoses:Gastroesophageal reflux disease, unspecified whether esophagitis present traZODone (DESYREL) 150 mg Take 150 mg by mouth daily at bedtime. atorvastatin (LIPITOR) 20 mg Take 20 mg by mouth once daily. vortioxetine (TRINTELLIX) 10 mg Take 10 mg by mouth once daily. clonazePAM (KlonoPIN) 0.5 mg Take 0.5 mg by mouth twice daily. carBAMazepine XR (TEGretol XR) 400 mg Take 400 mg by mouth q 12 HR. rOPINIRole (REQUIP) 2 mg Take 2 mg by mo (more content not included)... Normal [facility] Magnesium SerPl-mCncon 04-05 Magnesium [Mass/Vol] 2.0 mg/dL Normal 1.7-2.3 [facility] Comment on above: Order Comment: Speci men Type: BLOOD SPECIMEN Ordering Facility: [facility] Address: [address] [place] [address] Performed By: #### 5 8410-2 #### [facility] CLIA [id number] [place] [address] [place] NURSING PROGon 04-05-2022 NURSING PROG HNO ID: [id number] Author: Liliana Mayer RN Service: ? Author Type: Registered Nurse Type: Nursing Progress Note Filed: 04/05/2022 11:51 AM Note Text: Nursing Progress Note Patient Name: Mary Leal Patient Location: / Daily Note:Heplock removed.Home-going instructiongiven,understood instructions.E-script prescriptions to [facility] in [place], [place].Belongings packed and went with patient home.A few dressings given to patient for home(old ileostomy site).Discharged per wheelchair to daughter. This note was completed by: Liliana Mayer [facility] NURSING PROG HNO ID: [id number] Author: Liliana Mayer RN Service: ? Author Type: Registered Nurse Type: Nursing Progress Note Filed: 04/05/2022 11:45 AM Note Text: Nursing Progress Note Patient Name: Mary Leal Patient Location: Daily Note:Heplock in place.Took diet well.No n/v.Voiding clear urine.ABD dressing dry and intact on abdomen-old ileostomy site. Has three lap sites,open to air and glued.Showered this morning.Up in chair,ambulates in room without any difficulties.Denies pain. This note was completed by: Liliana Mayer [facility] NURSING PROG HNO ID: [id number] Author: Tez Gu RN Service: ? Author Type: Registered Nurse Type: Nursing Progress Note Filed: 04/04/2022 10:58 PM Note Text: Nursing Progress Note Patient Name: Mary Leal Patient Location: / Daily Note:04/04/22 2140 Pt is alert and oriented x3. Pt mabulating independently. Surgical sites intact. Pt refusing IVF, pt states she drinks enough water. This note was completed by: Tez Gu Normal [facility] NUTRITIONon 04-05-2022 NUTRITION HNO ID: [id number] Author: Merced Morales DTR Service: Nutrition Therapy Author Type: Computed Tomography Scanner Operator Type: Nutrition Filed: 04/05/2022 10:42 AM Note Text: NUTRITION THERAPY CIGAR HEAD PERFORATOR NOTE SERVICE DATE: 04/05/2022 SERVICE TIME: 9:45 AM Visit Type: Length of Stay Plan of Care: Supplements: Impact AR Follow-Up: [facility] Reassessment Nursing Admission Assessment Malnutrition Score: 0 Nutrition Intake: Diet Orders (From admission, onward) Start Ordered 04/04/22 0900 DIET GASTRO INTESTINAL START NOW Question: Gastro Intestinal Answer: FIBER CONTROLLED 04/04/22 0857 03/29/22 0000 DIET SUPPLEMENTS START NOW Question Answer Comment Supplement 1 (19 years and up) IMPACT ADVANCED RECOVERY VANILLA Supplement 1 Frequency 7. BREAKFAST, LUNCH, DINNER Supplement 2 (19 years and up) GATORADE G2 GLACIER FREEZE Supplement 2 Frequency 2. AM SNACK Supplement 2 Frequency 4. PM SNACK Supplement 2 Frequency 6. NIGHT SNACK Feeding instructions for nursing Start when advanced to unlimited liquids or GI soft diet 03/28/22 1850 Appetite: Good, seen eating breakfast tray GI Symptoms: Diarrhea Anthropometrics: Last Weight: 183 lb Body mass index is 31.41 kg/m?. Loss of lean body mass/visual muscle wasting: No Weight Change: Stable Diet Education: no follow up questions from previous education MNT Billing: $ Routine Care : 1-15 minutes SIGNATURE: Merced Morales DTR PATIENT NAME: Mary Leal DATE: April 05, 2022 TIME: 9:54 AM [facility] Phosphate SerPl-mCncon 04-05 Phosphate [Mass/Vol] 4.6 mg/dL Normal 2.7-4.8 [facility] Comment on above: Order Comment: Speci men Type: BLOOD SPECIMEN Ordering Facility: [facility] Address: [address] [place] [address] Performed By: #### 5 8410-2 #### [facility] CLIA [id number] [address] [place] [address] [place] Basic metabolic 2000 panelon 04-04-2022 Anion gap [Moles/Vol] 10 mmol/L Normal 9-18 [facility] Comment on above: Order Comment: Speci men Type: BLOOD SPECIMENOrdering Facility: [facility] Address: [address] [place] [address] Performed By: #### 2 4321-2, , 2776-11 ####[facility] [id number] [place] [id number] [place] Calcium [Mass/Vol] 8.9 mg/dL Normal 8.5-10.2 [facility] Comment on above: Order Comment: Speci men Type: BLOOD SPECIMENOrdering Facility: [facility] Address: [address] [place] [address] Performed By: #### 2 4321-2, , 2776-11 ####[facility] [id number] [place] [address] [place] Chloride [Moles/Vol] 104 mmol/L Normal 97-105 [facility] Comment on above: Order Comment: Speci men Type: BLOOD SPECIMENOrdering Facility: [facility] Address: [address] [place] [address] Performed By: #### 2 4321-2, , 2776-11 ####[facility]ORYCLIA [id number] [place] [id number] [place] CO2 [Moles/Vol] 26 mmol/L Normal 22-30 [facility] Comment on above: Order Comment: Speci men Type: BLOOD SPECIMENOrdering Facility: [facility] Address: [address] [place], [place] [address] Performed By: #### 2 4321-2, , 2776-11 ####[facility] LABORATORYCLIA [id number] [place] [id number] [place] Creatinine [Mass/Vol] 0.56 mg/dL Low 0.58-0.96 [facility] Comment on above: Order Comment: Speci men Type: BLOOD SPECIMENOrdering Facility: [facility] Address: [address] [place] [place] [id number] Performed By: #### 2 4321-2, , 2776-11 ####[facility] LABORATORYCLIA [id number] [place] [id number] [place] ESTIMATED GLOMERULAR FILTRAT ION RATE 112 mL/min/1.73m??? Normal >=60 [facility] Comment on above: Order Comment: Leanne terry Type: BLOOD SPECIMENOrdering Facility: [facility] Address: [address] [place], [place] [id number] Result Comment: Mary mated Glomerular Filtration Rate (eGFR) is calculated using the 2020 CKD-EPI creatinine equation. This equation utilizes serum creatinine, sex, and age as parameters. The creatinine assay has traceable calibration to isotope dilution-mass spectrometry. Refer to KDIGO guidelines for clinical interpretation. In patients with unstable renal function, e.g. those with acute kidney injury, the eGFR may not accurately reflect actual GFR. Performed By: #### 2 4321-2, , 2776-11 ####[facility] [id number] [place] [id number] [place] Glucose [Mass/Vol] 112 mg/dL High 74-99 [facility] Comment on above: Order Comment: Leanne terry Type: BLOOD SPECIMENOrdering Facility: [facility] Address: [address] [place], [place] [phone] Result Comment: The [place] Diabetes Association (ADA) provides guidance for cutoff values for fasting glucose and random glucose. The ADA defines fasting as no caloric intake for at least 8 hours. Fasting plasma glucose results between 100 to 125 mg/dL indicate increased risk for diabetes (prediabetes). Fasting plasma glucose results greater than or equal to 126 mg/dL meet the criteria for diagnosis of diabetes. In the absence of unequivocal hyperglycemia, results should be confirmed by repeat testing. In a patient with classic symptoms of hyperglycemia or hyperglycemic crisis, random plasma glucose results greater than or equal to 200 mg/dL meet the criteria for diagnosis of diabetes. Reference: Standards of Medical Care in Diabetes 2016, [place] Diabetes Association. Diabetes Care. 2016.39(Suppl 1). Performed By: #### 2 4321-2, 65557-1, 2776- ####[facility] [id number] [place] [id number] [place] Potassium [Moles/Vol] 3.9 mmol/L Normal 3.7-5.1 [facility] Comment on above: Order Comment: Speci men Type: BLOOD SPECIMENOrdering Facility: [facility] Address: [address] [place] [address] Performed By: #### 2 4321-2, , 2776- ####[facility] [id number] [place] [id number] [place] Sodium [Moles/Vol] 140 mmol/L Normal 136-144 [facility] Comment on above: Order Comment: Speci men Type: BLOOD SPECIMENOrdering Facility: [facility] Address: [address] [place] [address] Performed By: #### 2 4321-2, , 2776-11 ####[facility] [id number] [place] [id number] [place] Urea nitrogen [Mass/Vol] 3 mg/dL Low 7-21 [facility] Comment on above: Order Comment: Speci men Type: BLOOD SPECIMENOrdering Facility: [facility] Address: [address] [place] [address] Performed By: #### 2 4321-2, , 2776-11 ####[facility]ORY[facility]IA [id number] [place] [id number] [place] CBC W Auto Differential pane l (Bld)on 04-04-2022 Basophils (Bld) [#/Vol] 0.03 10*3/uL Normal <0.11 [facility] Comment on above: Order Comment: Speci men Type: BLOOD SPECIMEN Ordering Facility: [facility] Address: [address] [place] [address] Performed By: #### 5 7021-8 #### [facility] CLIA [id number] [address] [place] [address] [place] Basophils/100 WBC (Bld) 0.5 % Normal [facility] Comment on above: Order Comment: Speci men Type: BLOOD SPECIMEN Ordering Facility: [facility] Address: [address] [place] [address] Performed By: #### 5 7021-8 #### [facility] CLIA [id number] [address] [place] [address] [place] Differential cell count method Nom (Bld) Auto Normal [facility] Comment on above: Order Comment: Speci men Type: BLOOD SPECIMEN Ordering Facility: [facility] Address: [address] [place] [address] Performed By: #### 5 7021-8 #### [facility] CLIA [id number] [address] [place] [address] [place] Eosinophils (Bld) [#/Vol] 0.48 10*3/uL High <0.46 [facility] Comment on above: Order Comment: Speci men Type: BLOOD SPECIMEN Ordering Facility: [facility] Address: [address] [place] [address] Performed By: #### 5 7021-8 #### [facility] CLIA [id number] [address] [place] [address] [place] Eosinophils/100 WBC (Bld) 7.7 % Normal [facility] Comment on above: Order Comment: Speci men Type: BLOOD SPECIMEN Ordering Facility: [facility] Address: [address] [place] [address] Performed By: #### 5 7021-8 #### [facility] CLIA [id number] [address] [place] [address] [place] Erythrocyte distribution wid th (RBC) [Ratio] 12.7 % Normal 11.5-15.0 [facility] Comment on above: Order Comment: Speci men Type: BLOOD SPECIMEN Ordering Facility: [facility] Address: [address] [place] [address] Performed By: #### 5 7021-8 #### [facility] CLIA [id number] [address] [place] [address] Hematocrit (Bld) [Volume fraction] 31.2 % Low 3 6.0-46.0 [facility] Comment on above: Order Comment: Speci men Type: BLOOD SPECIMEN Ordering Facility: [facility] Address: [address] [place] [address] Performed By: #### 5 7021-8 #### [facility] CLIA [id number] [address] [place] [address] [facility] [place] Hemoglobin (Bld) [Mass/Vol] 10.7 g/dL Low 11.5-15. 5 [facility] Comment on above: Order Comment: Speci men Type: BLOOD SPECIMEN Ordering Facility: [facility] Address: [address] [place] [address] Performed By: #### 5 7021-8 #### [facility] CLIA [id number] [address] [place] [address] [place] IMMATURE GRAN % 0.5 % Normal [facility] Comment on above: Order Comment: Speci men Type: BLOOD SPECIMEN Ordering Facility: [facility] Address: [address] [place] [address] Performed By: #### 5 7021-8 #### [facility] CLIA [id number] [address] [place] [address] [place] IMMATURE GRAN ABS 0.03 k/uL Normal <0.10 [facility] Comment on above: Order Comment: Speci men Type: BLOOD SPECIMEN Ordering Facility: [facility] Address: [address] [place] [address] Performed By: #### 5 7021-8 #### [facility] CLIA [id number] [address] [place] [address] [place] Lymphocytes (Bld) [#/Vol] 1.13 10*3/uL Normal 1.00-4.0 0 [facility] Comment on above: Order Comment: Speci men Type: BLOOD SPECIMEN Ordering Facility: [facility] Address: [address] [place] [address] Performed By: #### 5 7021-8 #### [facility] CLIA [id number] [address] [place] [address] [place] Lymphocytes/100 WBC (Bld) 18.2 % Normal [facility] Comment on above: Order Comment: Speci men Type: BLOOD SPECIMEN Ordering Facility: [facility] Address: [address] [place] [address] Performed By: #### 5 7021-8 #### [facility] CLIA [id number] [address] [place] [address] [place] MCH (RBC) [Entitic mass] 29.9 pg Normal 26.0-34.0 [facility] Comment on above: Order Comment: Speci men Type: BLOOD SPECIMEN Ordering Facility: [facility] Address: [address] [place] [address] Performed By: #### 5 7021-8 #### [facility] CLIA [id number] [address] [place] [address] [place] MCHC (RBC) [Mass/Vol] 34.3 g/dL Normal 30.5-36.0 [facility] Comment on above: Order Comment: Speci men Type: BLOOD SPECIMEN Ordering Facility: [facility] Address: [address] [place] [address] Performed By: #### 5 7021-8 #### [facility] CLIA [id number] [address] [place] [address] [place] MCV (RBC) [Entitic vol] 87.2 fL Normal 80.0-100.0 [facility] Comment on above: Order Comment: Speci men Type: BLOOD SPECIMEN Ordering Facility: [facility] Address: [address] [place] [address] Performed By: #### 5 7021-8 #### [facility] CLIA [id number] [address] [place] [address] Monocytes (Bld) [#/Vol] 0.36 10*3/uL Normal <0.87 [facility] Comment on above: Order Comment: Speci men Type: BLOOD SPECIMEN Ordering Facility: [facility] Address: [address] [place] [address] Performed By: #### 5 7021-8 #### [facility] CLIA [id number] [address] [place] [address] [place] Monocytes/100 WBC (Bld) 5.8 % Normal [facility] Comment on above: Order Comment: Speci men Type: BLOOD SPECIMEN Ordering Facility: [facility] Address: [address] [place] [address] Performed By: #### 5 7021-8 #### [facility] CLIA [id number] [address] [place] [address] [place] Neutrophils (Bld) [#/Vol] 4.18 10*3/uL Normal 1.45-7.5 0 [facility] Comment on above: Order Comment: Speci men Type: BLOOD SPECIMEN Ordering Facility: [facility] Address: [address] [place] [address] Performed By: #### 5 7021-8 #### [facility] CLIA [id number] [address] [place] [address] [place] Neutrophils/100 WBC (Bld) 67.3 % Normal [facility] Comment on above: Order Comment: Speci men Type: BLOOD SPECIMEN Ordering Facility: [facility] Address: [address] [place] [address] Performed By: #### 5 7021-8 #### [facility] CLIA [id number] [address] [place] [address] [place] Nucleated RBC (Bld) [#/Vol] 10*3/uL Normal <0.01 [facility] Comment on above: Order Comment: Speci men Type: BLOOD SPECIMEN Ordering Facility: [facility] Address: [address] [place] [address] Performed By: #### 5 7021-8 #### [facility] CLIA [id number] [address] [place] [address] [place] Nucleated RBC/100 WBC (Bld) [Ratio] 0.0 /100 WBC Normal [facility] Comment on above: Order Comment: Speci men Type: BLOOD SPECIMEN Ordering Facility: [facility] Address: [address] [place], [place] [address] Performed By: #### 5 7021-8 #### [facility] CLIA [id number] [address] [place] [address] [place] Platelet mean volume (Bld) [Entitic vol] 8.7 fL Low 9.0-12.7 [facility] Comment on above: Order Comment: Speci men Type: BLOOD SPECIMEN Ordering Facility: [facility] Address: [address] [place] [address] Performed By: #### 5 7021-8 #### [facility] CLIA [id number] [address] [place] [address] [place] Platelets (Bld) [#/Vol] 436 10*3/uL High 150-400 [facility] Comment on above: Order Comment: Speci men Type: BLOOD SPECIMEN Ordering Facility: [facility] Address: [address] [place] [address] Performed By: #### 5 7021-8 #### [facility] CLIA [id number] [address] [place] [address] [place] RBC (Bld) [#/Vol] 3.58 10*6/uL Low 3.90-5.20 [facility] Comment on above: Order Comment: Speci men Type: BLOOD SPECIMEN Ordering Facility: [facility] Address: [address] [place], [place] [address] Performed By: #### 5 7021-8 #### [facility] CLIA [id number] [address] [place] [address] [place] WBC (Bld) [#/Vol] 6.21 10*3/uL Normal 3.70-11.00 [facility] Comment on above: Order Comment: Speci men Type: BLOOD SPECIMEN Ordering Facility: [facility] Address: [address] [place] [address] Performed By: #### 5 7021-8 #### [facility] CLIA [id number] [address] [place] [address] [place] Magnesium SerPl-mCncon 04-04 Magnesium [Mass/Vol] 2.1 mg/dL Normal 1.7-2.3 [facility] Comment on above: Order Comment: Speci men Type: BLOOD SPECIMENOrdering Facility: [facility] Address: [address] [place] [address] Performed By: #### 2 4321-2, 23218-6, 2777-1 ####[facility] [id number] [address] [place] NURSING PROGon 04-04-2022 NURSING PROG HNO ID: [id number] Author: Juan Crowley RN Service: Nursing Author Type: Registered Nurse Type: Nursing Progress Note Filed: 04/04/2022 7:47 PM Note Text: Nursing Progress Note Patient Name: Mary Leal Patient Location: [address] Daily Note:Patient refusing further IVF. This note was completed by: Juan [facility] NURSING PROG HNO ID: [id number] Author: Juan Crowley RN Service: Nursing Author Type: Registered Nurse Type: Nursing Progress Note Filed: 04/04/2022 11:11 AM Note Text: Nursing Progress Note Patient Name: Mary Leal Patient Location: [address] [id number] Daily Note: Patient up in chair and up ambulating in hallway with steady gait. VSS. RA POx. IVF as ordered. Transverse and Lap sites FLATWORK FEEDER with glue. Dressing to old ostomy site CDI. Abdomen soft and tender. Patient states, feeling much better . Diet advanced, yet patient did not take in 25% of tray. Patient informed RN that I am leaving today. Do what you gotta do. I can do all of this at home . Dr Lamas paged and notified, but post call. Will page SR fire loss prevention engineer. Will continue to monitor. Call light in reach. This note was completed by: Juan Crowley [facility] Phosphate SerPl-mCncon 04-04 Phosphate [Mass/Vol] 3.2 mg/dL Normal 2.7-4.8 [facility] Comment on above: Order Comment: Speci men Type: BLOOD SPECIMENOrdering Facility: [facility] Address: [address] [place] [address] Performed By: #### 2 4321-2, 41298-6, 2777-1 ####[facility] LABORATORYCLIA [id number] [address] HEALTH 04-03-2022 ALLIED HEALTH HNO ID: [id number] Author: MALAIKA Martinez Service: ? Author Type: Structural Steel Engineer Type: Allied Health Filed: 04/03/2022 5:35 PM Note Text: Radiology Service Progress Note PATIENT NAME: Mary Leal DATE OF SERVICE: April 03, 2022 TIME: 5:35 PM PATIENT IDENTITY VERIFICATION COMPLETED USING TWO (2) IDENTIFIERS: Name and Date of confirmed by patient verbally and Name and Date of confirmed by identification band. FALL SCREENING: Has the patient had 2 falls in the last year or 1 fall with injury or currently using an Ambulatory Assistive Device (Walker, Cane, Wheelchair, Crutches, etc.)? Inpatient: Screened on floor PATIENT GENDER DATA: Female. status: : No status: N/A PATIENT RELEVANT IMPLANT DATA REVIEWED: Not Applicable RADIOLOGY DEPARTMENT: CT; Exam(s) Completed: Abdomen/Pelvis PERIPHERAL IV DATA: Inpatient: see LDA documentation SIGNED BY: MALAIKA Martinez April 03, 2022 5:35 PM [facility] Basic metabolic 2000 panelon 04-03-2022 Anion gap [Moles/Vol] 10 mmol/L Normal 9-18 [facility] Comment on above: Order Comment: Speci men Type: BLOOD SPECIMENOrdering Facility: [facility] Address: [address] [place] [address] Performed By: #### B MP #### [place] [phone] Calcium [Mass/Vol] 8.4 mg/dL Low 8.5-10.2 [facility] Comment on above: Order Comment: Speci men Type: BLOOD SPECIMENOrdering Facility: [facility] Address: [address] [place] [address] Performed By: #### B MP #### [place] [phone] Chloride [Moles/Vol] 103 mmol/L Normal 97-105 [facility] Comment on above: Order Comment: Speci men Type: BLOOD SPECIMENOrdering Facility: [facility] Address: [address] [place] [address] Performed By: #### B MP #### [phone] CO2 [Moles/Vol] 25 mmol/L Normal 22-30 [facility] Comment on above: Order Comment: Speci men Type: BLOOD SPECIMENOrdering Facility: [facility] Address: [address] [place] [address] Performed By: #### B MP #### [phone] Creatinine [Mass/Vol] 0.60 mg/dL Normal 0.58-0.96 [facility] Comment on above: Order Comment: Speci men Type: BLOOD SPECIMENOrdering Facility: [facility] Address: [address] [place] [address] Performed By: #### B MP #### [place] [phone] ESTIMATED GLOMERULAR FILTRAT ION RATE 110 mL/min/1.73m??? Normal >=60 [facility] Comment on above: Order Comment: Leanne terry Type: BLOOD SPECIMENOrdering Facility: [facility] Address: [address] Result Comment: Mary mated Glomerular Filtration Rate (eGFR) is calculated using the 2020 CKD-EPI creatinine equation. This equation utilizes serum creatinine, sex, and age as parameters. The creatinine assay has traceable calibration to isotope dilution-mass spectrometry. Refer to KDIGO guidelines for clinical interpretation. In patients with unstable renal function, e.g. those with acute kidney injury, the eGFR may not accurately reflect actual GFR. Performed By: #### B MP #### [place] [address] Glucose [Mass/Vol] 106 mg/dL High 74-99 [facility] Comment on above: Order Comment: Leanne terry Type: BLOOD SPECIMENOrdering Facility: [facility] Address: [address] [place], [place] [id number] Result Comment: The [place] Diabetes Association (ADA) provides guidance for cutoff values for fasting glucose and random glucose. The ADA defines fasting as no caloric intake for at least 8 hours. Fasting plasma glucose results between 100 to 125 mg/dL indicate increased risk for diabetes (prediabetes). Fasting plasma glucose results greater than or equal to 126 mg/dL meet the criteria for diagnosis of diabetes. In the absence of unequivocal hyperglycemia, results should be confirmed by repeat testing. In a patient with classic symptoms of hyperglycemia or hyperglycemic crisis, random plasma glucose results greater than or equal to 200 mg/dL meet the criteria for diagnosis of diabetes. Reference: Standards of Medical Care in Diabetes 2016, [place] Diabetes Association. Diabetes Care. 2016.39(Suppl 1). Performed By: #### B MP #### [place] [id number] [place] [address] Potassium [Moles/Vol] 3.3 mmol/L Low 3.7-5.1 [facility] Comment on above: Order Comment: Leanne terry Type: BLOOD SPECIMENOrdering Facility: [facility] Address: [address] [id number] Performed By: #### B MP #### [place] [address] Sodium [Moles/Vol] 138 mmol/L Normal 136-144 [facility] Comment on above: Order Comment: Speci men Type: BLOOD SPECIMENOrdering Facility: [facility] Address: [address] [place] [address] Performed By: #### B MP #### [phone] Urea nitrogen [Mass/Vol] 4 mg/dL Low 7- [facility] Comment on above: Order Comment: Speci men Type: BLOOD SPECIMENOrdering Facility: [facility] Address: [address] [place] [address] Performed By: #### B MP #### [place] [id number] CBC W Auto Differential pane l (Bld)on 04-03-2022 Basophils (Bld) [#/Vol] 0.03 10*3/uL Normal <0.11 [facility] Comment on above: Order Comment: Speci men Type: BLOOD SPECIMENOrdering Facility: [facility] Address: [address] [place] [address] Performed By: #### B MP #### [place] [phone] Basophils/100 WBC (Bld) 0.4 % Normal [facility] Comment on above: Order Comment: Speci men Type: BLOOD SPECIMENOrdering Facility: [facility] Address: [address] [place] [address] Performed By: #### B MP #### [place] [id number] Differential cell count method Nom (Bld) Auto Normal [facility] Comment on above: Order Comment: Speci men Type: BLOOD SPECIMENOrdering Facility: [facility] Address: [address] [place] [address] Performed By: #### B MP #### [place] [id number] Eosinophils (Bld) [#/Vol] 0.48 10*3/uL High <0.46 [facility] Comment on above: Order Comment: Speci men Type: BLOOD SPECIMENOrdering Facility: [facility] Address: [address] [place] [address] Performed By: #### B MP #### [place] [phone] Eosinophils/100 WBC (Bld) 6.5 % Normal [facility] Comment on above: Order Comment: Speci men Type: BLOOD SPECIMENOrdering Facility: [facility] Address: [address] [place] [address] Performed By: #### B MP #### [place] [id number] Erythrocyte distribution wid th (RBC) [Ratio] 12.5 % Normal 11.5-15.0 [facility] Comment on above: Order Comment: Speci men Type: BLOOD SPECIMENOrdering Facility: [facility] Address: [address] [place] [address] Performed By: #### B MP #### [place] [id number] Hematocrit (Bld) [Volume fraction] 29.5 % Low 3 6.0-46.0 [facility] Comment on above: Order Comment: Speci men Type: BLOOD SPECIMENOrdering Facility: [facility] Address: [address] [place] [address] Performed By: #### B MP #### [place] [phone] Hemoglobin (Bld) [Mass/Vol] 10.2 g/dL Low 11.5-15. 5 [facility] Comment on above: Order Comment: Speci men Type: BLOOD SPECIMENOrdering Facility: [facility] Address: [address] [place] [address] Performed By: #### B MP #### [place] [phone] IMMATURE GRAN % 0.5 % Normal [facility] Comment on above: Order Comment: Speci men Type: BLOOD SPECIMENOrdering Facility: [facility] Address: [address] [place] [address] Performed By: #### B MP #### [place] [address] IMMATURE GRAN ABS 0.04 k/uL Normal <0.10 [facility] Comment on above: Order Comment: Speci men Type: BLOOD SPECIMENOrdering Facility: [facility] Address: [address] [place] [address] Performed By: #### B MP #### [phone] Lymphocytes (Bld) [#/Vol] 1.11 10*3/uL Normal 1.00-4.0 0 [facility] Comment on above: Order Comment: Speci men Type: BLOOD SPECIMENOrdering Facility: [facility] Address: [address] [place] [address] Performed By: #### B MP #### [place] [phone] Lymphocytes/100 WBC (Bld) 15.0 % Normal [facility] Comment on above: Order Comment: Speci men Type: BLOOD SPECIMENOrdering Facility: [facility] Address: [address] [place] [address] Performed By: #### B MP #### [phone] MCH (RBC) [Entitic mass] 30.1 pg Normal 26.0-34.0 [facility] Comment on above: Order Comment: Speci men Type: BLOOD SPECIMENOrdering Facility: [facility] Address: [address] [place] [address] Performed By: #### B MP #### [place] [phone] MCHC (RBC) [Mass/Vol] 34.6 g/dL Normal 30.5-36.0 [facility] Comment on above: Order Comment: Speci men Type: BLOOD SPECIMENOrdering Facility: [facility] Address: [address] [place] [address] Performed By: #### B MP #### [place] [phone] MCV (RBC) [Entitic vol] 87.0 fL Normal 80.0-100.0 [facility] Comment on above: Order Comment: Speci men Type: BLOOD SPECIMENOrdering Facility: [facility] Address: [address] [place] [address] Performed By: #### B MP #### [place] [phone] Monocytes (Bld) [#/Vol] 0.46 10*3/uL Normal <0.87 [facility] Comment on above: Order Comment: Speci men Type: BLOOD SPECIMENOrdering Facility: [facility] Address: [address] [place] [address] Performed By: #### B MP #### [phone] Monocytes/100 WBC (Bld) 6.2 % Normal [facility] Comment on above: Order Comment: Speci men Type: BLOOD SPECIMENOrdering Facility: [facility] Address: [address] [place] [address] Performed By: #### B MP #### [place] [phone] Neutrophils (Bld) [#/Vol] 5.27 10*3/uL Normal 1.45-7.5 0 [facility] Comment on above: Order Comment: Speci men Type: BLOOD SPECIMENOrdering Facility: [facility] Address: [address] [place] [address] Performed By: #### B MP #### [phone] Neutrophils/100 WBC (Bld) 71.4 % Normal [facility] Comment on above: Order Comment: Speci men Type: BLOOD SPECIMENOrdering Facility: [facility] Address: [address] [place] [address] Performed By: #### B MP #### [place] [phone] Nucleated RBC (Bld) [#/Vol] 10*3/uL Normal <0.01 [facility] Comment on above: Order Comment: Speci men Type: BLOOD SPECIMENOrdering Facility: [facility] Address: [address] [place] [address] Performed By: #### B MP #### [place] [phone] Nucleated RBC/100 WBC (Bld) [Ratio] 0.0 /100 WBC Normal [facility] Comment on above: Order Comment: Speci men Type: BLOOD SPECIMENOrdering Facility: [facility] Address: [address] [place] [address] Performed By: #### B MP #### [phone] Platelet mean volume (Bld) [Entitic vol] 8.6 fL Low 9.0-12.7 [facility] Comment on above: Order Comment: Speci men Type: BLOOD SPECIMENOrdering Facility: [facility] Address: [address] [place] [address] Performed By: #### B MP #### [phone] Platelets (Bld) [#/Vol] 342 10*3/uL Normal 150-400 [facility] Comment on above: Order Comment: Speci men Type: BLOOD SPECIMENOrdering Facility: [facility] Address: [address] [place] [address] Performed By: #### B MP #### [place] [phone] RBC (Bld) [#/Vol] 3.39 10*6/uL Low 3.90-5.20 [facility] Comment on above: Order Comment: Speci men Type: BLOOD SPECIMENOrdering Facility: [facility] Address: [address] [place] [address] Performed By: #### B MP #### [facility] [address] [place] [address] WBC (Bld) [#/Vol] 7.39 10*3/uL Normal 3.70-11.00 [facility] Comment on above: Order Comment: Speci men Type: BLOOD SPECIMENOrdering Facility: [facility] Address: [address] [id number] Performed By: #### B MP #### [facility] [address] [place] [address] CONSULT PROGon 04-03-2022 CONSULT PROG HNO ID: [id number] Author: Sarwat Huddleston PA-C Service: Pain Management Author Type: Physician Back Filler Operator Type: Consult Progress Note Filed: 04/03/2022 8:39 AM Note Text: PERIPHERAL NERVE CATHETER PROGRESS NOTE PATIENT NAME: Mary Leal SERVICE DATE: 04/03/2022 SERVICE TIME: 7:55 AM ASSESSMENT Mary Leal is a 51 year old female with past medical hx of ?Asthma, HTN, BPD, Dyslipidemia?and colonic inertia?who is now POD #?6?s/p Hand assisted TAC, EI takedown, iliorectal anastomosis with bilateral single shots and bilateral catheters placed to aid in post op pain control. ? Ms. Leal reports adequate incisional?pain controlled at this time with Dilaudid IV PRN and TAPS in place. Pain level is 7/10. TAPS Ropi 0.1% at 0//2?each 04/01/22 At this time she report most pain is due to abdominal gas. She would like the BTAPS removed at this time so she can shower. She is having taking in pills of roxicodone due to them not being absorbed. She would like to have the roxicodone changed to liquid if possible. ? Bilateral TAP sites without signs or symptoms of infection, no erythema, tenderness, drainage, or warmth. She is?NPO at this time? ? PLAN/Recs: D/C BTAPS - catheters removed with tips intact, patient tolerated procedure well, band aids applied. Will change Roxicodone to oral liquid at this time. Will sign off please reconsult if needed. ? The plan was discussed in detail with patient +/- family, bedside RN, APMS staff and primary service, who expressed agreement, understanding and comfort with the plan. Thank you for including us in her care. Please call us with any questions or concerns. APMS will continue to follow. ? SUBJECTIVE CHIEF COMPLAINT:???Post op pain ? PRIMARY SERVICE: Colorectal ? INTERVAL HPI:?Mary Leal is a 51 year old female who is POD # 6?s/p Hand assisted TAC, EI takedown, iliorectal anastomosis with bilateral single shots and bilateral catheters placed to aid in post op pain control. ? Pain level is 5 at rest 7?with ambulation on a scale of 0-10. Is the patient tolerating Physical Therapy?:?OOB chair Pain at surgical site? Yes, abd Character: aching Duration: intermittent Radiation: No Relieved: Yes?most of the time s patient satisfied with pain control: Yes with addition of dilaudid prn. Overnight Events: None Overnight Pain Interventions: no ? Allergy:? ALLERGIES ? ALLERGIES Allergen Reactions - Risperidone ? Intolerance ? ? Breast discharge ? ? MEDICATIONS:? I have interrogated the multi therapy pump for the correct settings and solution: Yes. Solution Ropi 0.1% at 0/15/30/2?e. Adjuvant Pain Medication: See below Current Facility-Administered Medications Medication Dose Route Frequency - NaCl 0.9% iv infusion 5-30 mL/hr INTRAVENOUS CONTINUOUS - lactated ringers 250-500 mL iv bolus 250-500 mL INTRAVENOUS PRN - carBAMazepine XR 400 mg tab(s) (TEGretol XR) 400 mg ORAL q 12 HR - albuterol HFA 90 mcg/actuation 2 Puff (PROVENTIL HFA, VENTOLIN HFA) 2 Puff INHALATION q 4 H PRN - traZODone 150 mg tab(s) (DESYREL) 150 mg ORAL AT BEDTIME - atenolol 50 mg tab(s) (TENORMIN) 50 mg ORAL DAILY - rOPINIRole 2 mg tab(s) (REQUIP) 2 mg ORAL DAILY - rOPINIRole (REQUIP) tab(s) 4 mg 4 mg ORAL AT BEDTIME - clonazePAM 0.5 mg tab(s) (KlonoPIN) 0.5 mg ORAL BID - sodium chloride 0.9 % (flush) 3-5 mL (BD POSIFLUSH) 3-5 mL INTRAVENOUS q 12 H - NaCl 0.9% iv flush bag 20 mL INTRAVENOUS PRN - ondansetron (PF) 4 mg injection (ZOFRAN) 4 mg INTRAVENOUS q 6 H PRN - acetaminophen 1,000 mg tab(s) (TYLENOL) 1,000 mg ORAL q 6 H - ibuprofen 400 mg tab(s) (MOTRIN) 400 mg ORAL q 8 H - enoxaparin 40 mg injection (LOVENOX) 40 mg SUBCUTANEOUS q 24 HR - atorvastatin 20 mg tab(s) (LIPITOR) 20 mg ORAL DAILY - vortioxetine 10 mg tab(s) (TRINTELLIX) 10 mg ORAL DAILY - ARIPiprazole 30 mg tab(s) (ABILIFY) 30 mg ORAL DAILY - lactobacillus rhamnosus 10 billion cell (CULTURELLE) capsule 1 capsule ORAL DAILY - prochlorperazine 10 mg injection (COMPAZINE) 10 mg INTRAVENOUS q 6 H PRN - dextrose 5% in NaCl 0.45% iv infusion 75 mL/hr INTRAVENOUS CONTINUOUS - tiZANidine 2 mg tab(s) (ZANAFLEX) 2 mg ORAL q 8 H PRN - oxyCODONE IR 5 mg tab(s) (ROXICODONE) 5 mg ORAL q 4 H PRN - HYDROmorphone 0.2 mg injection (DILAUDID) 0.2 mg INTRAVENOUS q 2 H PRN - pantoprazole DR 20 mg tab(s) (PROTONIX) 20 mg ORAL DAILY (6 AM) - ropivacaine nerve block 0.1% (1 mg/mL) in NaCl 0.9% 300 mL PERIPHERAL NERVE CATHETER CONTINUOUS - ropivacaine nerve block 0.1% (1 mg/mL) in NaCl 0.9% 300 mL PERIPHERAL NERVE CATHETER CONTINUOUS - alvimopan 12 mg cap(s) (ENTEREG) 12 mg ORAL BID - famotidine 20 mg tab(s) (PEPCID) 20 mg ORAL BID - potassium chloride iv piggyback 20 mEq/100 mL 20 mEq INTRAVENOUS q 1 H OBJECTIVE: PHYSICAL EXAM: No data found. Affect: awake, alert and oriented General Impression: appears comf (more content not included)... [facility] ABD/PEL W IVCONon 022 CT ABD/PEL W IVCON * * *Final Report* * * DATE OF EXAM: Apr 03 2022 5:44PM FVC 0530 - CT ABD/PEL W IVCON / PROCEDURE REASON: Nausea/vomiting * * * * Physician Interpretation * * * * EXAMINATION: CT ABDOMEN AND PELVIS WITH IV CONTRAST CLINICAL HISTORY: Nausea/vomiting. Status post laparoscopic total abdominal colectomy, ileostomy takedown and ileorectal anastomosis on 03/28/2022 TECHNIQUE: CT of the abdomen and pelvis was performed using standard technique, scanning from just above the dome of the diaphragm to the symphysis pubis. MQ: CTAP_3 Contrast: IV: 100 ml of Omnipaque 300 Oral: None CT Radiation dose: Integrated Dose-length product (DLP) for this visit = 578 mGy*cm. CT Dose Reduction Employed: Automated exposure control (AEC) COMPARISON: None. RESULT: Liver: No mass. Biliary: No bile duct dilation. Layering gallstones present within a nondistended gallbladder. No gross biliary ductal dilatation. Spleen: No mass. No splenomegaly. Small accessory splenule noted. Pancreas: No mass or duct dilation. No abnormal peripancreatic fat stranding. Adrenals: No mass. Kidneys: No hydronephrosis or hydroureter present bilaterally. No renal or ureteral calculi. Symmetric enhancement of both kidneys. GI tract/anterior abdominal wall: Postsurgical changes status post colectomy. Surgical suture material in the pelvis in the region of the anastomosis with the rectal stump. Residual wall thickening of the distal rectum. Mild fat stranding adjacent to the postsurgical site in the pelvis. No focal fluid collection is present. Scattered fluid-filled loops of small bowel are present but no evidence of bowel obstruction. No intra-abdominal abscess is present. In the right lateral lower anterior abdominal wall there is residual fat stranding, fluid and gas bubbles present within the right abdominal musculature. These findings likely related to recent surgery. Residual fluid and small gas bubbles present in the right lower quadrant anteriorly on series 2 images 95-105 presumably from the site of right lower quadrant ileostomy takedown. Within the lower anterior pelvic soft tissues there is a larger collection of more focal fluid and multiple gas bubbles measuring 9.7 x 3.6 x 3.3 cm in size which is again also likely postsurgical in nature. The sterility of this collection cannot be assessed on CT. Lymph nodes: No abdominal or pelvic lymphadenopathy. Mesentery/Peritoneum: No ascites or mass. Retroperitoneum: No mass. Vasculature: - Abdominal aorta and iliac arteries: No aneurysm. - Celiac and SMA: Patent without stenosis. - Portal venous system (SMV, splenic vein, portal vein and branches): Patent. - Hepatic veins: Patent. Pelvis: Urinary bladder is incompletely distended. Mild fat stranding and inflammatory changes in lower pelvis likely related to recent surgery. Bones: Visualized osseous structures are grossly unremarkable. Lower thorax: Visualized lung bases are clear. Metal Fence Erector (topogram) images: No additional findings. IMPRESSION: Postsurgical changes status post colectomy and ileostomy takedown. In the right lateral lower anterior abdominal wall there is residual fat stranding, fluid and gas bubbles present within the right abdominal musculature. These findings likely related to recent surgery. Residual fluid and small gas bubbles present in the right lower quadrant anteriorly on series 2 images 95-105 presumably from the site of right lower quadrant ileostomy takedown. Within the lower anterior pelvic soft tissues there is a larger collection of more focal fluid and multiple gas bubbles measuring 9.7 x 3.6 x 3.3 cm in size which is again also likely postsurgical in nature. The sterility of this collection cannot be assessed on CT. No intra-abdominal focal fluid collection or abscess is present. Surgical suture material in the pelvis in the region of the anastomosis with the rectal stump. Residual wall thickening of the distal rectum. Mild fat stranding adjacent to the postsurgical site in the pelvis. No focal fluid collection is present in the lower pelvis Cable Worker Helper: [facility] Transcribe Date/Time: Apr 03 2022 9:00P Dictated by : SHELBY ESPINOSA MD This examination was interpreted and the report reviewed and electronically signed by: SHELBY ESPINOSA MD on Apr 03 2022 9:12PM EST [id number] Normal [facility] Magnesium SerPl-mCncon 04-03 Magnesium [Mass/Vol] 1.6 mg/dL Low 1.7-2.3 [facility] Comment on above: Order Comment: Speci men Type: BLOOD SPECIMENOrdering Facility: [facility] Address: [address] [place] [id number] Performed By: #### B MP #### [place] [address] NURSING PROGon 04-03-2022 NURSING PROG HNO ID: [id number] Author: Annette Ford RN Service: ? Author Type: Registered Nurse Type: Nursing Progress Note Filed: 04/03/2022 9:39 PM Note Text: Nursing Progress Note Patient Name: Mary Leal [id number] Daily Note: 2129: Pt declined to have all oral medications. They just go right through me. I cannot take them. . Made RN aware. This note was completed by: Annette Ford [facility] NURSING PROG HNO ID: [id number] Author: Juan Crowley RN Service: Nursing Author Type: Registered Nurse Type: Nursing Progress Note Filed: 04/03/2022 2:51 PM Note Text: Nursing Progress Note Patient Name: Mary Leal [id number] Daily Note:Patient unable to tolerate powder form of potassium due to nausea. Patient unable to tolerate IV form, it feels like It's paralyzing my arm . Attempted to dilute boluses and lower rates with no success. SR paged with events ([phone]). Awaiting further orders. This note was completed by: Juan Crowley [facility] NURSING PROG HNO ID: [id number] Author: Juan Crowley RN Service: Nursing Author Type: Registered Nurse Type: Nursing Progress Note Filed: 04/03/2022 11:33 AM Note Text: Nursing Progress Note Patient Name: Mary Leal Patient Location: / Daily Note: Patient Up independently in room and in hallway. IVF infusing as ordered. B/L Tap Blocks discontinued and removed by PA. Old ostomy dressing changed. Scant amount of drainage on dressing. Fresh ABD with tape applied. Transverse and lap sites ELENI with glue. BS Hypoactive. No flatus per patient. Continues to have frequent liquid BM's mixed with urine. (unable to accurately measure). Refusing pills, yet taking some medications in liquid form. US guided angio cath placed in left fore arm. CT of Abdomen and Pelvis pending. Magnesium bolus completed. Oral potassium in process. Dr. Lamas aware. Will continue to monitor. This note was completed by: Juan Crowley [facility] NURSING PROG HNO ID: [id number] Author: Chava Remy RN Service: PICC Team Author Type: Registered Nurse Type: Nursing Progress Note Filed: 04/03/2022 8:37 AM Note Text: PICC/VASCULAR ACCESS PROGRESS NOTE SERVICE DATE: 04/03/2022 SERVICE TIME: 0830 Called to floor to start difficult PIV. PIV started in the left for arm # 22 angio. Brisk blood return noted and flushed with 10 ml normal saline. No complications noted. SIGNATURE: Chava Remy RN PATIENT NAME: Mary Leal DATE: April 03, 2022 TIME: 8:37 AM PAGER/CONTACT #: [facility] NURSING PROG HNO ID: [id number] Author: Kev Leone RN Service: ? Author Type: Registered Nurse Type: Nursing Progress Note Filed: 04/03/2022 3:50 AM Note Text: Nursing Progress Note Patient Name: Mary Leal Patient Location: / Daily Note: 2100: Pt refusing all PO meds at this time, states she's concerned that she's not digesting them properly. Paan currently being controlled with bilateral blocks and PRN IV pain medication. This note was completed by: Kev Leone [facility] Phosphate SerPl-mCncon 04-03 Phosphate [Mass/Vol] 3.3 mg/dL Normal 2.7-4.8 [facility] Comment on above: Order Comment: Speci men Type: BLOOD SPECIMENOrdering Facility: [facility] Address: [address] [place], [place] [id number] Performed By: #### B MP #### [place] [address] ALLIED HEALTHon 04-02-2022 ALLIED HEALTH HNO ID: [id number] Author: RT Ban(Asiya) Service: Radiology Author Type: Technologist Type: Allied Health Filed: 04/02/2022 9:14 AM Note Text: Radiology Service Progress Note PATIENT NAME: Mary Leal DATE OF SERVICE: April 02, 2022 TIME: 9:12 AM PATIENT IDENTITY VERIFICATION COMPLETED USING TWO (2) IDENTIFIERS: Name and Date of confirmed by patient verbally. FALL SCREENING: Has the patient had 2 falls in the last year or 1 fall with injury or currently using an Ambulatory Assistive Device (Walker, Cane, Wheelchair, Crutches, etc.)? Inpatient: Screened on floor PATIENT GENDER DATA: Female. status: : No status: NO. PATIENT RELEVANT IMPLANT DATA REVIEWED: Not Applicable RADIOLOGY DEPARTMENT: General X-ray: Exam(s) Completed: Abdomen X-Ray: Abdomen PERIPHERAL IV DATA: Not applicable SIGNED BY: RT Ban(R) April 02, 2022 9:12 AM [facility] CONSULT PROGon 04-02-2022 CONSULT PROG HNO ID: [id number] Author: Sarwat Huddleston PA-C Service: Pain Management Author Type: Physician Back Filler Operator Type: Consult Progress Note Filed: 04/02/2022 9:00 AM Note Text: PERIPHERAL NERVE CATHETER PROGRESS NOTE PATIENT NAME: Mary Leal SERVICE DATE: 04/02/2022 SERVICE TIME: 8:48 AM ASSESSMENT Mary Leal is a 51 year old female with past medical hx of ?Asthma, HTN, BPD, Dyslipidemia?and colonic inertia?who is now POD # 5 s/p Hand assisted TAC, EI takedown, iliorectal anastomosis with bilateral single shots and bilateral catheters placed to aid in post op pain control. ? Ms. Leal reports adequate incisional pain controlled at this time with Dilaudid IV PRN and TAPS in place. TAPS changed to infusion of Ropi 0.2% to Ropi 0.1% at 0/15/30/2 each yesterday Bilateral TAP sites without signs or symptoms of infection, no erythema, tenderness, drainage, or warmth. She is NPO at this time ? PLAN/Recs: 1. Continue TAPS at this time. Will follow. 2. Continue pain regimen per primary team ? The plan was discussed in detail with patient +/- family, bedside RN, APMS staff and primary service, who expressed agreement, understanding and comfort with the plan. Thank you for including us in her care. Please call us with any questions or concerns. APMS will continue to follow. SUBJECTIVE CHIEF COMPLAINT: Post op pain ? PRIMARY SERVICE: Colorectal ? INTERVAL HPI: Mary Leal is a 51 year old female who is POD # 5 s/p Hand assisted TAC, EI takedown, iliorectal anastomosis with bilateral single shots and bilateral catheters placed to aid in post op pain control. ? Pain level is 5 at rest 7 with ambulation on a scale of 0-10. Is the patient tolerating Physical Therapy?: OOB chair Pain at surgical site? Yes, abd Character: aching Duration: intermittent Radiation: No Relieved: Yes most of the time s patient satisfied with pain control: Yes with addition of dilaudid prn. Overnight Events: None Overnight Pain Interventions: no ? Allergy: ALLERGIES ALLERGIES Allergen Reactions - Risperidone Intolerance ? ? Breast discharge ? MEDICATIONS: I have interrogated the multi therapy pump for the correct settings and solution: Yes. Solution Ropivacaine 0.2%, rate 0/8/30/2 ml/hr. Adjuvant Pain Medication: See below Current Facility-Administered Medications Medication Dose Route Frequency - NaCl 0.9% iv infusion 5-30 mL/hr INTRAVENOUS CONTINUOUS - lactated ringers 250-500 mL iv bolus 250-500 mL INTRAVENOUS PRN - carBAMazepine XR 400 mg tab(s) (TEGretol XR) 400 mg ORAL q 12 HR - albuterol HFA 90 mcg/actuation 2 Puff (PROVENTIL HFA, VENTOLIN HFA) 2 Puff INHALATION q 4 H PRN - traZODone 150 mg tab(s) (DESYREL) 150 mg ORAL AT BEDTIME - atenolol 50 mg tab(s) (TENORMIN) 50 mg ORAL DAILY - rOPINIRole 2 mg tab(s) (REQUIP) 2 mg ORAL DAILY - rOPINIRole (REQUIP) tab(s) 4 mg 4 mg ORAL AT BEDTIME - clonazePAM 0.5 mg tab(s) (KlonoPIN) 0.5 mg ORAL BID - sodium chloride 0.9 % (flush) 3-5 mL (BD POSIFLUSH) 3-5 mL INTRAVENOUS q 12 H - NaCl 0.9% iv flush bag 20 mL INTRAVENOUS PRN - ondansetron (PF) 4 mg injection (ZOFRAN) 4 mg INTRAVENOUS q 6 H PRN - acetaminophen 1,000 mg tab(s) (TYLENOL) 1,000 mg ORAL q 6 H - gabapentin 300 mg cap(s) (NEURONTIN) 300 mg ORAL q 8 H - ibuprofen 400 mg tab(s) (MOTRIN) 400 mg ORAL q 8 H - enoxaparin 40 mg injection (LOVENOX) 40 mg SUBCUTANEOUS q 24 HR - atorvastatin 20 mg tab(s) (LIPITOR) 20 mg ORAL DAILY - vortioxetine 10 mg tab(s) (TRINTELLIX) 10 mg ORAL DAILY - ARIPiprazole 30 mg tab(s) (ABILIFY) 30 mg ORAL DAILY - lactobacillus rhamnosus 10 billion cell (CULTURELLE) capsule 1 capsule ORAL DAILY - prochlorperazine 10 mg injection (COMPAZINE) 10 mg INTRAVENOUS q 6 H PRN - dextrose 5% in NaCl 0.45% iv infusion 75 mL/hr INTRAVENOUS CONTINUOUS - tiZANidine 2 mg tab(s) (ZANAFLEX) 2 mg ORAL q 8 H PRN - oxyCODONE IR 5 mg tab(s) (ROXICODONE) 5 mg ORAL q 4 H PRN - HYDROmorphone 0.2 mg injection (DILAUDID) 0.2 mg INTRAVENOUS q 2 H PRN - pantoprazole DR 20 mg tab(s) (PROTONIX) 20 mg ORAL DAILY (6 AM) - ropivacaine nerve block 0.1% (1 mg/mL) in NaCl 0.9% 300 mL PERIPHERAL NERVE CATHETER CONTINUOUS - ropivacaine nerve block 0.1% (1 mg/mL) in NaCl 0.9% 300 mL PERIPHERAL NERVE CATHETER CONTINUOUS - alvimopan 12 mg cap(s) (ENTEREG) 12 mg ORAL BID - famotidine 20 mg tab(s) (PEPCID) 20 mg ORAL BID OBJECTIVE: PHYSICAL EXAM: Patient Vitals for the past 3 hrs: BP Temp Temp src Pulse Resp SpO2 04/02/22 0814 105/64 37.1 ?C (98.8 ?F) Oral 70 18 96 % Affect: awake, alert and oriented General Impression: appears comfortable ? Catheter sites are clean, non-tender and dressing intact. ? Respiratory Exam: Respirations: Breathing appears normal Thoracostomy tube?: No ? Gastrointestinal Exam: Abdomen: abd incision c/d/i NG?: No DATA: Lab Results Hemoglobin 9.6 04/01/2022 Hematocrit 29.3 5 (more content not included)... Normal [facility] NURSING PROGon 04-02-2022 NURSING PROG HNO ID: [id number] Author: Juan Crowley RN Service: Nursing Author Type: Registered Nurse Type: Nursing Progress Note Filed: 04/02/2022 1:23 PM Note Text: Nursing Progress Note Patient Name: Mary Leal Patient Location: PK3B/ Daily Note: Patient AANDOx3. VSS. RA POx. D51/2NS at 75 ml/hr. B/L Tap Block dressings CDI. Old ostomy with ABD and tape, CDI. Transverse and lap sites FLATWORK FEEDER with glue. NPO status. Medicated with IV Zofran x1 for c/o nausea with good relief. Patient has had 3 liquid BM's while urinating. Pill present in one BM. Patient refusing most pills at this time. Up with assist of one on transfer due to lines. Encouraging patient to be OOB to chair and ambulate today. Patient verbalizes good understanding. Reviewed all pain meds with patient with patient verbalizing good understanding. Will continue to monitor. This note was completed by: Juan Crowley Normal [facility] XR ABDOMEN 1V SUPINEon 04-02 XR ABDOMEN 1V SUPINE * * *Final Report* * * DATE OF EXAM: Apr 02 2022 8:44AM FVX 5289 - XR ABDOMEN 1V SUPINE / PROCEDURE REASON: Nausea/vomiting * * * * Physician Interpretation * * * * SINGLE SUPINE VIEW OF THE ABDOMEN. CLINICAL INDICATION: Nausea, vomiting. COMPARISON:09/10/2021. RESULT: Mildly dilated loops of proximal small bowel with maximum diameter of approximately 3.5 cm in the mid to upper abdomen. No radiopaque calculi are seen projecting over the expected location of the kidneys. - IMPRESSION: Mildly dilated loops of proximal small bowel. Differential considerations include ileus, partial small bowel obstruction. Further evaluation with CT scan of the abdomen and pelvis may be of help for further evaluation. Cable Worker Helper: CAPRI Transcribe Date/Time: Apr 02 2022 9:16A Dictated by : JOAQUIN BRYANT MD This examination was interpreted and the report reviewed and electronically signed by: JOAQUIN BRYANT MD on Apr 02 2022 9:19AM EST [id number] Normal [facility] Basic metabolic 2000 panelon 04-01-2022 Anion gap [Moles/Vol] 9 mmol/L Normal 9-18 [facility] Comment on above: Order Comment: Leanne terry Type: BLOOD SPECIMENOrdering Facility: [facility] Address: [address] [place] [address] Performed By: #### B MP #### [address] [address] Calcium [Mass/Vol] 7.9 mg/dL Low 8.5-10.2 [facility] Comment on above: Order Comment: Speci men Type: BLOOD SPECIMENOrdering Facility: [facility] Address: [address] [place] [address] Performed By: #### B MP #### [phone] Chloride [Moles/Vol] 106 mmol/L High 97-105 [facility] Comment on above: Order Comment: Speci men Type: BLOOD SPECIMENOrdering Facility: [facility] Address: [address] [place] [address] Performed By: #### B MP #### [place] [id number] CO2 [Moles/Vol] 26 mmol/L Normal 22-30 [facility] Comment on above: Order Comment: Speci men Type: BLOOD SPECIMENOrdering Facility: [facility] Address: [address] [place] [address] Performed By: #### B MP #### [place] [id number] Creatinine [Mass/Vol] 0.68 mg/dL Normal 0.58-0.96 [facility] Comment on above: Order Comment: Speci men Type: BLOOD SPECIMENOrdering Facility: [facility] Address: [address] [place] [address] Performed By: #### B MP #### [place] [id number] ESTIMATED GLOMERULAR FILTRAT ION RATE 107 mL/min/1.73m??? Normal >=60 [facility] Comment on above: Order Comment: Speci men Type: BLOOD SPECIMENOrdering Facility: [facility] Address: [address] [place] [address] Result Comment: Mary mated Glomerular Filtration Rate (eGFR) is calculated using the 2020 CKD-EPI creatinine equation. This equation utilizes serum creatinine, sex, and age as parameters. The creatinine assay has traceable calibration to isotope dilution-mass spectrometry. Refer to KDIGO guidelines for clinical interpretation. In patients with unstable renal function, e.g. those with acute kidney injury, the eGFR may not accurately reflect actual GFR. Performed By: #### B MP #### [place] [phone] Glucose [Mass/Vol] 99 mg/dL Normal 74-99 [facility] Comment on above: Order Comment: Leanne harrison Type: BLOOD SPECIMENOrdering Facility: [facility] Address: [address] [place] [address] Result Comment: The [place] Diabetes [employer] (ADA) provides guidance for cutoff values for fasting glucose and random glucose. The ADA defines fasting as no caloric intake for at least 8 hours. Fasting plasma glucose results between 100 to 125 mg/dL indicate increased risk for diabetes (prediabetes). Fasting plasma glucose results greater than or equal to 126 mg/dL meet the criteria for diagnosis of diabetes. In the absence of unequivocal hyperglycemia, results should be confirmed by repeat testing. In a patient with classic symptoms of hyperglycemia or hyperglycemic crisis, random plasma glucose results greater than or equal to 200 mg/dL meet the criteria for diagnosis of diabetes. Reference: Standards of Medical Care in Diabetes 2016, [place] [employer] Association. Diabetes Care. 2016.39(Suppl 1). Performed By: #### B MP #### [place] [address] Potassium [Moles/Vol] 3.7 mmol/L Normal 3.7-5.1 [facility] Comment on above: Order Comment: Leanne harrison Type: BLOOD SPECIMENOrdering Facility: [facility] Address: [address] [place] [address] Performed By: #### B MP #### [place] [phone] Sodium [Moles/Vol] 141 mmol/L Normal 136-144 [facility] Comment on above: Order Comment: Leanne harrison Type: BLOOD SPECIMENOrdering Facility: [facility] Address: [address] [place], [place] [id number] Performed By: #### B MP #### [place] [phone] Urea nitrogen [Mass/Vol] 4 mg/dL Low 7-21 [facility] Comment on above: Order Comment: Speci men Type: BLOOD SPECIMENOrdering Facility: [facility] Address: [address] [place] [address] Performed By: #### B MP #### [place] [address] CBC panel Auto (Bld)on 04-01 Erythrocyte distribution wid th (RBC) [Ratio] 12.4 % Normal 11.5-15.0 [facility] Comment on above: Order Comment: Speci men Type: BLOOD SPECIMEN Ordering Facility: [facility] Address: [address] [place] [address] Performed By: #### 5 8410-2 #### [facility] CLIA [id number] [address] [place] [address] [place] Hematocrit (Bld) [Volume fraction] 29.3 % Low 3 6.0-46.0 [facility] Comment on above: Order Comment: Speci men Type: BLOOD SPECIMEN Ordering Facility: [facility] Address: [address] [place] [address] Performed By: #### 5 8410-2 #### [facility] CLIA [id number] [address] [place] [address] [place] Hemoglobin (Bld) [Mass/Vol] 9.6 g/dL Low 11.5-15. 5 [facility] Comment on above: Order Comment: Speci men Type: BLOOD SPECIMEN Ordering Facility: [facility] Address: [address] [place] [address] Performed By: #### 5 8410-2 #### [facility] CLIA [id number] [address] [place] [address] [place] MCH (RBC) [Entitic mass] 29.4 pg Normal 26.0-34.0 [facility] Comment on above: Order Comment: Speci men Type: BLOOD SPECIMEN Ordering Facility: [facility] Address: [address] [place] [address] Performed By: #### 5 8410-2 #### [facility] CLIA [id number] [address] [place] [address] [place] MCHC (RBC) [Mass/Vol] 32.8 g/dL Normal 30.5-36.0 [facility] Comment on above: Order Comment: Speci men Type: BLOOD SPECIMEN Ordering Facility: [facility] Address: [address] [place] [address] Performed By: #### 5 8410-2 #### [facility] CLIA [id number] [address] [place] [address] [place] MCV (RBC) [Entitic vol] 89.9 fL Normal 80.0-100.0 [facility] Comment on above: Order Comment: Speci men Type: BLOOD SPECIMEN Ordering Facility: [facility] Address: [address] [place] [address] Performed By: #### 5 8410-2 #### [facility] CLIA [id number] [address] [place] [address] [place] Nucleated RBC (Bld) [#/Vol] 10*3/uL Normal <0.01 [facility] Comment on above: Order Comment: Speci men Type: BLOOD SPECIMEN Ordering Facility: [facility] Address: [address] [place] [address] Performed By: #### 5 8410-2 #### [facility] CLIA [id number] [address] [place] [address] [place] Platelet mean volume (Bld) [Entitic vol] 8.9 fL Low 9.0-12.7 [facility] Comment on above: Order Comment: Speci men Type: BLOOD SPECIMEN Ordering Facility: [facility] Address: [address] [place] [address] Performed By: #### 5 8410-2 #### [facility] CLIA [id number] [address] [place] [address] [place] Platelets (Bld) [#/Vol] 282 10*3/uL Normal 150-400 [facility] Comment on above: Order Comment: Speci men Type: BLOOD SPECIMEN Ordering Facility: [facility] Address: [address] [place] [address] Performed By: #### 5 8410-2 #### [facility] CLIA [id number] [address] [place] [address] [place] RBC (Bld) [#/Vol] 3.26 10*6/uL Low 3.90-5.20 [facility] Comment on above: Order Comment: Speci men Type: BLOOD SPECIMEN Ordering Facility: [facility] Address: [address] [place] [address] Performed By: #### 5 8410-2 #### [facility] CLIA [id number] [place] [address] [place] WBC (Bld) [#/Vol] 7.39 10*3/uL Normal 3.70-11.00 [facility] Comment on above: Order Comment: Speci men Type: BLOOD SPECIMEN Ordering Facility: [facility] Address: [address] [place] [address] Performed By: #### 5 8410-2 #### [facility] CLIA [id number] [address] [place] [address] OF [facility] CONSULT PROGon 04-01-2022 CONSULT PROG HNO ID: [id number] Author: Joslyn Jain [email or web address] Service: Pain Management Author Type: Nurse Practitioner Type: Consult Progress Note Filed: 04/01/2022 2:52 PM Note Text: PERIPHERAL NERVE CATHETER PROGRESS NOTE PATIENT NAME: Mary Leal SERVICE DATE: 04/01/2022 SERVICE TIME: 10:45 AM ASSESSMENT Mary Leal is a 51 year old female with past medical hx of Asthma, HTN, BPD, Dyslipidemia and colonic inertia who is now POD # 4 s/p Hand assisted TAC, EI takedown, iliorectal anastomosis with bilateral single shots and bilateral catheters placed to aid in post op pain control. Ms. Leal is resting in bed, she reports feeling bloated, aching around incision site, able to walked around. Bilateral TAP sites without signs or symptoms of infection, no erythema, tenderness, drainage, or warmth. She is tolerating liq at this time, nausea is slightly better. PLAN/Recs: 1. Changed bilateral TAP (Day 4) infusion of Ropi 0.2% to Ropi 0.1% at 0/15/30/2 each to optimize pain control and minimize opioids 2. Continue pain regimen per primary team The plan was discussed in detail with patient +/- family, bedside RN, APMS staff and primary service, who expressed agreement, understanding and comfort with the plan. Thank you for including us in her care. Please call us with any questions or concerns. APMS will continue to follow. SUBJECTIVE CHIEF COMPLAINT: Post op pain PRIMARY SERVICE: Colorectal INTERVAL HPI: Mary Leal is a 51 year old female who is POD # 4 s/p Hand assisted TAC, EI takedown, iliorectal anastomosis with bilateral single shots and bilateral catheters placed to aid in post op pain control. Per patient pain is slightly improving, nausea is better this morning. Pain level is 5 at rest 6 with ambulation on a scale of 0-10. Is the patient tolerating Physical Therapy?: OOB chair, walking in the unit Pain at surgical site? Yes, abd Character: aching Duration: intermittent Radiation: No Relieved: Yes most of the time s patient satisfied with pain control: Yes Overnight Events: None Overnight Pain Interventions: no Allergy: ALLERGIES Allergen Reactions - Risperidone Intolerance Breast discharge MEDICATIONS: I have interrogated the multi therapy pump for the correct settings and solution: Yes. Solution Ropivacaine 0.2%, rate 0/8/30/2 ml/hr. Adjuvant Pain Medication: See below. Current Facility-Administered Medications Medication Dose Route Frequency - NaCl 0.9% iv infusion 5-30 mL/hr INTRAVENOUS CONTINUOUS - lactated ringers 250-500 mL iv bolus 250-500 mL INTRAVENOUS PRN - carBAMazepine XR 400 mg tab(s) (TEGretol XR) 400 mg ORAL q 12 HR - albuterol HFA 90 mcg/actuation 2 Puff (PROVENTIL HFA, VENTOLIN HFA) 2 Puff INHALATION q 4 H PRN - traZODone 150 mg tab(s) (DESYREL) 150 mg ORAL AT BEDTIME - atenolol 50 mg tab(s) (TENORMIN) 50 mg ORAL DAILY - rOPINIRole 2 mg tab(s) (REQUIP) 2 mg ORAL DAILY - rOPINIRole (REQUIP) tab(s) 4 mg 4 mg ORAL AT BEDTIME - clonazePAM 0.5 mg tab(s) (KlonoPIN) 0.5 mg ORAL BID - sodium chloride 0.9 % (flush) 3-5 mL (BD POSIFLUSH) 3-5 mL INTRAVENOUS q 12 H - NaCl 0.9% iv flush bag 20 mL INTRAVENOUS PRN - ondansetron (PF) 4 mg injection (ZOFRAN) 4 mg INTRAVENOUS q 6 H PRN - acetaminophen 1,000 mg tab(s) (TYLENOL) 1,000 mg ORAL q 6 H - gabapentin 300 mg cap(s) (NEURONTIN) 300 mg ORAL q 8 H - ibuprofen 400 mg tab(s) (MOTRIN) 400 mg ORAL q 8 H - enoxaparin 40 mg injection (LOVENOX) 40 mg SUBCUTANEOUS q 24 HR - atorvastatin 20 mg tab(s) (LIPITOR) 20 mg ORAL DAILY - vortioxetine 10 mg tab(s) (TRINTELLIX) 10 mg ORAL DAILY - ARIPiprazole 30 mg tab(s) (ABILIFY) 30 mg ORAL DAILY - lactobacillus rhamnosus 10 billion cell (CULTURELLE) capsule 1 capsule ORAL DAILY - prochlorperazine 10 mg injection (COMPAZINE) 10 mg INTRAVENOUS q 6 H PRN - dextrose 5% in NaCl 0.45% iv infusion 75 mL/hr INTRAVENOUS CONTINUOUS - tiZANidine 2 mg tab(s) (ZANAFLEX) 2 mg ORAL q 8 H PRN - oxyCODONE IR 5 mg tab(s) (ROXICODONE) 5 mg ORAL q 4 H PRN - HYDROmorphone 0.2 mg injection (DILAUDID) 0.2 mg INTRAVENOUS q 2 H PRN - pantoprazole DR 20 mg tab(s) (PROTONIX) 20 mg ORAL DAILY (6 AM) - ropivacaine nerve block 0.1% (1 mg/mL) in NaCl 0.9% 300 mL PERIPHERAL NERVE CATHETER CONTINUOUS - ropivacaine nerve block 0.1% (1 mg/mL) in NaCl 0.9% 300 mL PERIPHERAL NERVE CATHETER CONTINUOUS OBJECTIVE: PHYSICAL EXAM: BP 96/58 Pulse 70 Temp 36.8 ?C (98.2 ?F) (Oral) Resp 20 SpO2 95% Affect: awake, alert and oriented General Impression: appears tired Catheter sites are clean, non-tender and dressing intact. Respiratory Exam: Respirations: Breathing appears normal Thoracostomy tube?: No Gastrointestinal Exam: Abdomen: abd incision c/d/i NG?: No DATA: Lab Results Component Latest Ref Rng AND Units 03/31/2022 Glucose 74 - 99 mg/dL 84 BUN 7 - 21 mg/dL 11 Creatinine 0.58 - 0.96 mg/dL 0.67 Sod (more content not included)... Normal [facility] Magnesium SerPl-mCncon 04-01 Magnesium [Mass/Vol] 1.7 mg/dL Normal 1.7-2.3 [facility] Comment on above: Order Comment: Speci men Type: BLOOD SPECIMENOrdering Facility: [facility] [facility] Address: [address] [place], [place] [address] Performed By: #### B #### [place] [address] NURSING PROGon 04-01-2022 NURSING PROG HNO ID: [id number] Author: Tez Gu RN Service: ? Author Type: Registered Nurse Type: Nursing Progress Note Filed: 04/01/2022 9:56 PM Note Text: Nursing Progress Note Patient Name: Mary Leal Patient Location: Daily Note:04/01/222038 Pt is alert and oriented x3. Surgical sites intact. Tap blocks x2 intact. Made SROC aware of Pt experiencing sharp/stabbing pain in abdomen, rating 9/10. SROC recommended use of PRN Dilaudid This note was completed by: Tez Gu [facility] NURSING PROG HNO ID: [id number] Author: Tez Gu RN Service: ? Author Type: Registered Nurse Type: Nursing Progress Note Filed: 04/01/2022 1:52 AM Note Text: Nursing Progress Note Patient Name: Mary Leal [id number] Daily Note:03/31/222030 Pt is alert and oriented x3. Surgical sites intact. Nerve blocks x2 intact. This note was completed by: Tez Gu Normal [facility] Phosphate SerPl-mCncon 04-01 Phosphate [Mass/Vol] 2.8 mg/dL Normal 2.7-4.8 [facility] Comment on above: Order Comment: Speci men Type: BLOOD SPECIMENOrdering Facility: [facility] Address: [address] [place] [address] Performed By: #### B MP #### [place] [address] Basic metabolic 2000 panelon 03-31-2022 Anion gap [Moles/Vol] 10 mmol/L Normal 9-18 [facility] Comment on above: Order Comment: Speci men Type: BLOOD SPECIMEN Ordering Facility: [facility] Address: [address] [place] [address] Performed By: #### 5 8410-2 #### [facility] CLIA [id number] [address] [place] [address] [place] Calcium [Mass/Vol] 8.4 mg/dL Low 8.5-10.2 [facility] Comment on above: Order Comment: Speci men Type: BLOOD SPECIMEN Ordering Facility: [facility] Address: [address] [place] [address] Performed By: #### 5 8410-2 #### [facility] CLIA [id number] [address] [place] [address] [place] Chloride [Moles/Vol] 107 mmol/L High 97-105 [facility] Comment on above: Order Comment: Speci men Type: BLOOD SPECIMEN Ordering Facility: [facility] Address: [address] [place] [address] Performed By: #### 5 8410-2 #### [facility] CLIA [id number] [address] [place] [address] [place] CO2 [Moles/Vol] 23 mmol/L Normal 22-30 [facility] Comment on above: Order Comment: Leanne terry Type: BLOOD SPECIMEN Ordering Facility: [facility] Address: [address] [place] [address] Performed By: #### 5 8410-2 #### [facility] CLIA [id number] [address] [place] [address] [place] Creatinine [Mass/Vol] 0.67 mg/dL Normal 0.58-0.96 [facility] Comment on above: Order Comment: Everettei men Type: BLOOD SPECIMEN Ordering Facility: [facility] Address: [address] [place] [address] Performed By: #### 5 8410-2 #### [facility] CLIA [id number] [address] [place] [address] ESTIMATED GLOMERULAR FILTRAT ION RATE 107 mL/min/1.73m??? Normal >=60 [facility] Comment on above: Order Comment: Leanne terry Type: BLOOD SPECIMEN Ordering Facility: [facility] Address: [address] [place] [address] Result Comment: Mary mated Glomerular Filtration Rate (eGFR) is calculated using the 2020 CKD-EPI creatinine equation. This equation utilizes serum creatinine, sex, and age as parameters. The creatinine assay has traceable calibration to isotope dilution-mass spectrometry. Refer to KDIGO guidelines for clinical interpretation. In patients with unstable renal function, e.g. those with acute kidney injury, the eGFR may not accurately reflect actual GFR. Performed By: #### 5 8410-2 #### [facility] CLIA [id number] [address] [place] [address] [place] Glucose [Mass/Vol] 84 mg/dL Normal 74-99 [facility] Comment on above: Order Comment: Everettei men Type: BLOOD SPECIMEN Ordering Facility: [facility] Address: [address] [place] [address] Result Comment: The [place] Diabetes [employer] (ADA) provides guidance for cutoff values for fasting glucose and random glucose. The ADA defines fasting as no caloric intake for at least 8 hours. Fasting plasma glucose results between 100 to 125 mg/dL indicate increased risk for diabetes (prediabetes). Fasting plasma glucose results greater than or equal to 126 mg/dL meet the criteria for diagnosis of diabetes. In the absence of unequivocal hyperglycemia, results should be confirmed by repeat testing. In a patient with classic symptoms of hyperglycemia or hyperglycemic crisis, random plasma glucose results greater than or equal to 200 mg/dL meet the criteria for diagnosis of diabetes. Reference: Standards of Medical Care in Diabetes 2016, [place] [employer] Association. Diabetes Care. 2016.39(Suppl 1). Performed By: #### 5 8410-2 #### [facility] CLIA [id number] [address] [place] [address] [place] Potassium [Moles/Vol] 3.8 mmol/L Normal 3.7-5.1 [facility] Comment on above: Order Comment: Leanne terry Type: BLOOD SPECIMEN Ordering Facility: [facility] Address: [address] [place] [address] Performed By: #### 5 8410-2 #### [facility] CLIA [id number] [address] [place] [address] [place] Sodium [Moles/Vol] 140 mmol/L Normal 136-144 [facility] Comment on above: Order Comment: Leanne terry Type: BLOOD SPECIMEN Ordering Facility: [facility] Address: [address] [place] [address] Performed By: #### 5 8410-2 #### [facility] CLIA [id number] [address] [place] [address] [place] Urea nitrogen [Mass/Vol] 11 mg/dL Normal 7-21 [facility] Comment on above: Order Comment: Leanne terry Type: BLOOD SPECIMEN Ordering Facility: [facility] Address: [address] [place] [address] Performed By: #### 5 8410-2 #### [facility] CLIA [id number] [address] [place] [address] [place] CBC W Auto Differential pane l (Bld)on 03-31-2022 Basophils (Bld) [#/Vol] 0.03 10*3/uL Normal <0.11 [facility] Comment on above: Order Comment: Speci men Type: BLOOD SPECIMEN Ordering Facility: [facility] Address: [address] [place] [address] Performed By: #### 5 7021-8 #### [facility] CLIA [id number] [address] [place] [address] [place] Basophils/100 WBC (Bld) 0.4 % Normal [facility] Comment on above: Order Comment: Speci men Type: BLOOD SPECIMEN Ordering Facility: [facility] Address: [address] [place] [address] Performed By: #### 5 7021-8 #### [facility] CLIA [id number] [address] [place] [address] [place] Differential cell count method Nom (Bld) Auto Normal [facility] Comment on above: Order Comment: Speci men Type: BLOOD SPECIMEN Ordering Facility: [facility] Address: [address] [place] [address] Performed By: #### 5 7021-8 #### [facility] CLIA [id number] [address] [place] [address] [place] Eosinophils (Bld) [#/Vol] 0.38 10*3/uL Normal <0.46 [facility] Comment on above: Order Comment: Speci men Type: BLOOD SPECIMEN Ordering Facility: [facility] Address: [address] [place] [address] Performed By: #### 5 7021-8 #### [facility] CLIA [id number] [address] [place] [address] [place] Eosinophils/100 WBC (Bld) 4.4 % Normal [facility] Comment on above: Order Comment: Speci men Type: BLOOD SPECIMEN Ordering Facility: [facility] Address: [address] [place] [address] Performed By: #### 5 7021-8 #### [facility] CLIA [id number] [address] [place] [address] [place] Erythrocyte distribution wid th (RBC) [Ratio] 12.6 % Normal 11.5-15.0 [facility] Comment on above: Order Comment: Speci men Type: BLOOD SPECIMEN Ordering Facility: [facility] Address: [address] [place] [address] Performed By: #### 5 7021-8 #### [facility] CLIA [id number] [address] [place] [address] [place] Hematocrit (Bld) [Volume fraction] 30.0 % Low 3 6.0-46.0 [facility] Comment on above: Order Comment: Speci men Type: BLOOD SPECIMEN Ordering Facility: [facility] Address: [address] [place] [address] Performed By: #### 5 7021-8 #### [facility] [place] [id number] [address] [place] [address] [place] Hemoglobin (Bld) [Mass/Vol] 9.9 g/dL Low 11.5-15. 5 [facility] Comment on above: Order Comment: Speci men Type: BLOOD SPECIMEN Ordering Facility: [facility] Address: [address] [place] [address] Performed By: #### 5 7021-8 #### [facility] [place] [id number] [address] [place] [address] [place] IMMATURE GRAN % 0.4 % Normal [facility] Comment on above: Order Comment: Speci men Type: BLOOD SPECIMEN Ordering Facility: [facility] Address: [address] [place] [address] Performed By: #### 5 7021-8 #### [facility] CLIA [id number] [address] [place] [address] [place] IMMATURE GRAN ABS 0.03 k/uL Normal <0.10 [facility] Comment on above: Order Comment: Speci men Type: BLOOD SPECIMEN Ordering Facility: [facility] Address: [address] [place] [address] Performed By: #### 5 7021-8 #### [facility] CLIA [id number] [address] [place] [address] [place] Lymphocytes (Bld) [#/Vol] 1.24 10*3/uL Normal 1.00-4.0 0 [facility] Comment on above: Order Comment: Speci men Type: BLOOD SPECIMEN Ordering Facility: [facility] Address: [address] [place] [address] Performed By: #### 5 7021-8 #### [facility] CLIA [id number] [address] [place] [address] [place] Lymphocytes/100 WBC (Bld) 14.5 % Normal [facility] Comment on above: Order Comment: Speci men Type: BLOOD SPECIMEN Ordering Facility: [facility] Address: [address] [place] [address] Performed By: #### 5 7021-8 #### [facility] CLIA [id number] [address] [place] [address] [place] MCH (RBC) [Entitic mass] 29.6 pg Normal 26.0-34.0 [facility] Comment on above: Order Comment: Speci men Type: BLOOD SPECIMEN Ordering Facility: [facility] Address: [address] [place] [address] Performed By: #### 5 7021-8 #### [facility] CLIA [id number] [address] [place] [address] [place] MCHC (RBC) [Mass/Vol] 33.0 g/dL Normal 30.5-36.0 [facility] Comment on above: Order Comment: Speci men Type: BLOOD SPECIMEN Ordering Facility: [facility] Address: [address] [place] [address] Performed By: #### 5 7021-8 #### [facility] CLIA [id number] [address] [place] [address] OF [facility] MCV (RBC) [Entitic vol] 89.8 fL Normal 80.0-100.0 [facility] Comment on above: Order Comment: Speci men Type: BLOOD SPECIMEN Ordering Facility: [facility] Address: [address] [place] [address] Performed By: #### 5 7021-8 #### [facility] CLIA [id number] [address] [place] [address] [place] Monocytes (Bld) [#/Vol] 0.48 10*3/uL Normal <0.87 [facility] Comment on above: Order Comment: Speci men Type: BLOOD SPECIMEN Ordering Facility: [facility] Address: [address] [place] [address] Performed By: #### 5 7021-8 #### [facility] CLIA [id number] [address] [place] [address] [place] Monocytes/100 WBC (Bld) 5.6 % Normal [facility] Comment on above: Order Comment: Speci men Type: BLOOD SPECIMEN Ordering Facility: [facility] Address: [address] [place] [address] Performed By: #### 5 7021-8 #### [facility] CLIA [id number] [address] [place] [address] [place] Neutrophils (Bld) [#/Vol] 6.41 10*3/uL Normal 1.45-7.5 0 [facility] Comment on above: Order Comment: Speci men Type: BLOOD SPECIMEN Ordering Facility: [facility] Address: [address] [place] [address] Performed By: #### 5 7021-8 #### [facility] CLIA [id number] [address] [place] [address] [place] Neutrophils/100 WBC (Bld) 74.7 % Normal [facility] Comment on above: Order Comment: Speci men Type: BLOOD SPECIMEN Ordering Facility: [facility] Address: [address] [place] [address] Performed By: #### 5 7021-8 #### [facility] CLIA [id number] [address] [place] [address] [place] Nucleated RBC (Bld) [#/Vol] 10*3/uL Normal <0.01 [facility] Comment on above: Order Comment: Speci men Type: BLOOD SPECIMEN Ordering Facility: [facility] Address: [address] [place] [address] Performed By: #### 5 7021-8 #### [facility] CLIA [id number] [address] [place] [address] [place] Nucleated RBC/100 WBC (Bld) [Ratio] 0.0 /100 WBC Normal [facility] Comment on above: Order Comment: Speci men Type: BLOOD SPECIMEN Ordering Facility: [facility] Address: [address] [place] [address] Performed By: #### 5 7021-8 #### [facility] CLIA [id number] [address] [place] [address] [place] Platelet mean volume (Bld) [Entitic vol] 9.0 fL Normal 9.0-12.7 [facility] Comment on above: Order Comment: Speci men Type: BLOOD SPECIMEN Ordering Facility: [facility] Address: [address] [place] [address] Performed By: #### 5 7021-8 #### [facility] CLIA [id number] [address] [place] [address] [place] Platelets (Bld) [#/Vol] 246 10*3/uL Normal 150-400 [facility] Comment on above: Order Comment: Speci men Type: BLOOD SPECIMEN Ordering Facility: [facility] Address: [address] [place] [address] Performed By: #### 5 7021-8 #### [facility] CLIA [id number] [address] [place] [address] [place] RBC (Bld) [#/Vol] 3.34 10*6/uL Low 3.90-5.20 [facility] Comment on above: Order Comment: Speci men Type: BLOOD SPECIMEN Ordering Facility: [facility] Address: [address] [place] [address] Performed By: #### 5 7021-8 #### [facility] CLIA [id number] [address] [place] [address] [place] WBC (Bld) [#/Vol] 8.57 10*3/uL Normal 3.70-11.00 [facility] Comment on above: Order Comment: Speci men Type: BLOOD SPECIMEN Ordering Facility: [facility] Address: [address] [place] [address] Performed By: #### 5 7021-8 #### [facility] CLIA [id number] [address] [place] [id number] [facility] [place] CONSULT PROGon 03-31-2022 CONSULT PROG HNO ID: [id number] Author: Joslyn Jain APRN.AUTOMOTIVE SERVICE TECHNICIAN Service: Pain Management Author Type: Nurse Practitioner Type: Consult Progress Note Filed: 03/31/2022 12:08 PM Note Text: PERIPHERAL NERVE CATHETER PROGRESS NOTE PATIENT NAME: Mary Leal SERVICE DATE: 03/31/2022 SERVICE TIME: 08:21 AM ASSESSMENT Mary Leal is a 51 year old female with past medical hx of Asthma, HTN, BPD, Dyslipidemia and colonic inertia who is now POD # 3 s/p Hand assisted TAC, EI takedown, iliorectal anastomosis with bilateral single shots and bilateral catheters placed to aid in post op pain control. Ms. Leal is OOB to commode, she reports adequate incisional pain controlled. Bilateral TAP sites without signs or symptoms of infection, no erythema, tenderness, drainage, or warmth. She is NPO at this time PLAN/Recs: 1. Continue TAPS X 2 to 0 each, will likely remove it on Monday 2. Continue pain regimen per primary team The plan was discussed in detail with patient +/- family, bedside RN, APMS staff and primary service, who expressed agreement, understanding and comfort with the plan. Thank you for including us in her care. Please call us with any questions or concerns. APMS will continue to follow. SUBJECTIVE CHIEF COMPLAINT: Post op pain PRIMARY SERVICE: Colorectal INTERVAL HPI: Mary Leal is a 51 year old female who is POD # 3 s/p Hand assisted TAC, EI takedown, iliorectal anastomosis with bilateral single shots and bilateral catheters placed to aid in post op pain control. Pain level is 5 at rest 7 with ambulation on a scale of 0-10. Is the patient tolerating Physical Therapy?: OOB chair Pain at surgical site? Yes, abd Character: aching Duration: intermittent Radiation: No Relieved: Yes most of the time s patient satisfied with pain control: Yes Overnight Events: None Overnight Pain Interventions: no Allergy: ALLERGIES Allergen Reactions - Risperidone Intolerance Breast discharge MEDICATIONS: I have interrogated the multi therapy pump for the correct settings and solution: Yes. Solution Ropivacaine 0.2%, rate 0/8/30/2 ml/hr. Adjuvant Pain Medication: See below. Current Facility-Administered Medications Medication Dose Route Frequency - NaCl 0.9% iv infusion 5-30 mL/hr INTRAVENOUS CONTINUOUS - lactated ringers 250-500 mL iv bolus 250-500 mL INTRAVENOUS PRN - carBAMazepine XR 400 mg tab(s) (TEGretol XR) 400 mg ORAL q 12 HR - albuterol HFA 90 mcg/actuation 2 Puff (PROVENTIL HFA, VENTOLIN HFA) 2 Puff INHALATION q 4 H PRN - traZODone 150 mg tab(s) (DESYREL) 150 mg ORAL AT BEDTIME - atenolol 50 mg tab(s) (TENORMIN) 50 mg ORAL DAILY - rOPINIRole 2 mg tab(s) (REQUIP) 2 mg ORAL DAILY - rOPINIRole (REQUIP) tab(s) 4 mg 4 mg ORAL AT BEDTIME - clonazePAM 0.5 mg tab(s) (KlonoPIN) 0.5 mg ORAL BID - sodium chloride 0.9 % (flush) 3-5 mL (BD POSIFLUSH) 3-5 mL INTRAVENOUS q 12 H - NaCl 0.9% iv flush bag 20 mL INTRAVENOUS PRN - ondansetron (PF) 4 mg injection (ZOFRAN) 4 mg INTRAVENOUS q 6 H PRN - acetaminophen 1,000 mg tab(s) (TYLENOL) 1,000 mg ORAL q 6 H - gabapentin 300 mg cap(s) (NEURONTIN) 300 mg ORAL q 8 H - ibuprofen 400 mg tab(s) (MOTRIN) 400 mg ORAL q 8 H - enoxaparin 40 mg injection (LOVENOX) 40 mg SUBCUTANEOUS q 24 HR - ropivacaine nerve block 0.2% (2 mg/mL) - 200 mL PERIPHERAL NERVE CATHETER CONTINUOUS - ropivacaine nerve block 0.2% (2 mg/mL) - 200 mL PERIPHERAL NERVE CATHETER CONTINUOUS - atorvastatin 20 mg tab(s) (LIPITOR) 20 mg ORAL DAILY - vortioxetine 10 mg tab(s) (TRINTELLIX) 10 mg ORAL DAILY - ARIPiprazole 30 mg tab(s) (ABILIFY) 30 mg ORAL DAILY - famotidine 20 mg tab(s) (PEPCID) 20 mg ORAL BID - HYDROmorphone 0.2 mg injection (DILAUDID) 0.2 mg INTRAVENOUS q 4 H PRN - oxyCODONE IR 5-10 mg tab(s) (ROXICODONE) 5-10 mg ORAL q 4 H PRN - lactobacillus rhamnosus 10 billion cell (CULTURELLE) capsule 1 capsule ORAL DAILY - prochlorperazine 10 mg injection (COMPAZINE) 10 mg INTRAVENOUS q 6 H PRN - dextrose 5% in NaCl 0.45% iv infusion 75 mL/hr INTRAVENOUS CONTINUOUS - magnesium sulfate 2 g in sterile water 50 ml 2 g INTRAVENOUS ONCE OBJECTIVE: PHYSICAL EXAM: BP 93/54 Pulse 72 Temp 36.8 ?C (98.2 ?F) (Oral) Resp 17 SpO2 95% Affect: awake, alert and oriented General Impression: appears comfortable Catheter sites are clean, non-tender and dressing intact. Respiratory Exam: Respirations: Breathing appears normal Thoracostomy tube?: No Gastrointestinal Exam: Abdomen: abd incision c/d/i NG?: No DATA: Lab Results Component Latest Ref Rng AND Units 03/31/2022 Glucose 74 - 99 mg/dL 84 BUN 7 - 21 mg/dL 11 Creatinine 0.58 - 0.96 mg/dL 0.67 Sodium 136 - 144 mmol/L 140 Potassium 3.7 - 5.1 mmol/L 3.8 Chloride 97 - 105 mmol/L 107 (H) CO2 22 - 30 mmol/L 23 Anion Gap 9 - 18 mmol/L 10 Calcium 8.5 - 10.2 mg/dL 8.4 (L) eGFR >=60 mL/min/1.73m? 107 Component Latest Ref Rng AND U (more content not included)... Normal [facility] Magnesium SerPl-mCncon 03-31 Magnesium [Mass/Vol] 1.6 mg/dL Low 1.7-2.3 [facility] Comment on above: Order Comment: Speci men Type: BLOOD SPECIMEN Ordering Facility: [facility] Address: [facility] [place] [address] Performed By: #### 5 8410-2 #### [id number] OF [facility] NURSING PROGon 03-31-2022 NURSING PROG HNO ID: [id number] Author: Daisy Amaya RN Service: Nursing Author Type: Registered Nurse Type: Nursing Progress Note Filed: 03/31/2022 4:56 PM Note Text: Nursing Progress Note Patient Name: Mary Leal Patient Location: / Daily Note: 0931- Pt A+Ox3. Up with standby assist. Ambulated pod multiple times. Laps intact. Old ostomy site WNL. Pt having liquid brown BMs. Voiding adq. No nausea, cp, or sob. Taps infusing per MAR. Pain controlled with PRN oxy. No further needs at this time. This note was completed by: Daisy Amaya [facility] NURSING PROG HNO ID: [id number] Author: Mariluz Carnes RN Service: Nursing Author Type: Registered Nurse Type: Nursing Progress Note Filed: 03/30/2022 11:47 PM Note Text: Nursing Progress Note Patient Name: Mary Leal Patient Location: / Daily Note: Pt's BP 90/52. Patient asymptomatic. Surgery made aware. Order in for [employer] LR 500CC's. This note was completed by: Mariluz Carnes Normal [facility] Phosphate SerPl-mCncon 03-31 Phosphate [Mass/Vol] 2.7 mg/dL Normal 2.7-4.8 [facility] Comment on above: Order Comment: Speci men Type: BLOOD SPECIMEN Ordering Facility: [facility] Address: [address] [place] [address] Performed By: #### 5 8410-2 #### [facility] CLIA [id number] [address] [place] [address] [place] Basic metabolic 2000 panelon 03-30-2022 Anion gap [Moles/Vol] 10 mmol/L Normal 9-18 [facility] Comment on above: Order Comment: Speci men Type: BLOOD SPECIMEN Ordering Facility: [facility] Address: [address] [place] [address] Performed By: #### 1 9123-9, 2777-1, 62470-0 #### [facility] CLIA [id number] [address] [place] [address] [place] Calcium [Mass/Vol] 8.5 mg/dL Normal 8.5-10.2 [facility] Comment on above: Order Comment: Speci men Type: BLOOD SPECIMEN Ordering Facility: [facility] Address: [address] [place] [address] Performed By: #### 1 9123-9, 2777-1, 83072-8 #### [facility] CLIA [id number] [address] [place] [address] [place] Chloride [Moles/Vol] 103 mmol/L Normal 97-105 [facility] Comment on above: Order Comment: Speci men Type: BLOOD SPECIMEN Ordering Facility: [facility] Address: [address] [place] [address] Performed By: #### 1 9123-9, 2777-1, 48157-5 #### [facility] CLIA [id number] [address] [place] [address] [place] CO2 [Moles/Vol] 24 mmol/L Normal 22-30 [facility] Comment on above: Order Comment: Speci men Type: BLOOD SPECIMEN Ordering Facility: [facility] Address: [address] [place] [address] Performed By: #### 1 9123-9, 2777-1, 32526-5 #### [facility] CLIA [id number] [place] [address] [place] Creatinine [Mass/Vol] 0.69 mg/dL Normal 0.58-0.96 [facility] Comment on above: Order Comment: Speci men Type: BLOOD SPECIMEN Ordering Facility: [facility] Address: [address] [place] [address] Performed By: #### 1 9123-9, 2777, 66698-1 #### [facility] CLIA [id number] [address] [place] [address] [place] ESTIMATED GLOMERULAR FILTRAT ION RATE 107 mL/min/1.73m??? Normal >=60 [facility] Comment on above: Order Comment: Speci men Type: BLOOD SPECIMEN Ordering Facility: [facility] Address: [address] [place] [address] Result Comment: Mary mated Glomerular Filtration Rate (eGFR) is calculated using the 2020 CKD-EPI creatinine equation. This equation utilizes serum creatinine, sex, and age as parameters. The creatinine assay has traceable calibration to isotope dilution-mass spectrometry. Refer to KDIGO guidelines for clinical interpretation. In patients with unstable renal function, e.g. those with acute kidney injury, the eGFR may not accurately reflect actual GFR. Performed By: #### 1 9123-9, 2777-1, 91204-8 #### [facility] CLIA [id number] [address] [place] [address] [place] Glucose [Mass/Vol] 117 mg/dL High 74-99 [facility] Comment on above: Order Comment: Speci men Type: BLOOD SPECIMEN Ordering Facility: [facility] Address: [address] [place] [address] Result Comment: The [place] Diabetes Association (ADA) provides guidance for cutoff values for fasting glucose and random glucose. The ADA defines fasting as no caloric intake for at least 8 hours. Fasting plasma glucose results between 100 to 125 mg/dL indicate increased risk for diabetes (prediabetes). Fasting plasma glucose results greater than or equal to 126 mg/dL meet the criteria for diagnosis of diabetes. In the absence of unequivocal hyperglycemia, results should be confirmed by repeat testing. In a patient with classic symptoms of hyperglycemia or hyperglycemic crisis, random plasma glucose results greater than or equal to 200 mg/dL meet the criteria for diagnosis of diabetes. Reference: Standards of Medical Care in Diabetes 2016, [place] [employer]. Diabetes Care. 2016.39(Suppl 1). Performed By: #### 1 9123-9, 2777-, 48145-9 #### [facility] CLIA [id number] [address] [place] [address] [place] Potassium [Moles/Vol] 3.9 mmol/L Normal 3.7-5.1 [facility] Comment on above: Order Comment: Leanne terry Type: BLOOD SPECIMEN Ordering Facility: [facility] Address: [address] [place] [address] Performed By: #### 1 9123-9, 27705-06, 54603-5 #### [facility] CLIA [id number] [address] [place] [address] [place] Sodium [Moles/Vol] 137 mmol/L Normal 136-144 [facility] Comment on above: Order Comment: Leanne terry Type: BLOOD SPECIMEN Ordering Facility: [facility] Address: [address] [address] Performed By: #### 1 9123-9, 27705-06, 48179-7 #### [facility] CLIA [id number] [address] [place] [address] [place] Urea nitrogen [Mass/Vol] 13 mg/dL Normal 7-21 [facility] Comment on above: Order Comment: Leanne terry Type: BLOOD SPECIMEN Ordering Facility: [facility] Address: [address] [address] Performed By: #### 1 9123-9, 27705-06, 56210-5 #### [facility] CLIA [id number] [address] [place] [address] [place] CBC panel Auto (Bld)on 03-30 Erythrocyte distribution wid th (RBC) [Ratio] 12.8 % Normal 11.5-15.0 [facility] Comment on above: Order Comment: Speci men Type: BLOOD SPECIMEN Ordering Facility: [facility] Address: [address] [place] [address] Performed By: #### 5 8410-2 #### [facility] CLIA [id number] [address] [place] [address] [place] Hematocrit (Bld) [Volume fraction] 35.0 % Low 3 6.0-46.0 [facility] Comment on above: Order Comment: Speci men Type: BLOOD SPECIMEN Ordering Facility: [facility] Address: [address] [place] [address] Performed By: #### 5 8410-2 #### [facility] CLIA [id number] [address] [place] [address] [place] Hemoglobin (Bld) [Mass/Vol] 11.8 g/dL Normal 11.5-15. 5 [facility] Comment on above: Order Comment: Speci men Type: BLOOD SPECIMEN Ordering Facility: [facility] Address: [address] [place] [address] Performed By: #### 5 8410-2 #### [facility] CLIA [id number] [address] [place] [address] [place] MCH (RBC) [Entitic mass] 30.6 pg Normal 26.0-34.0 [facility] Comment on above: Order Comment: Speci men Type: BLOOD SPECIMEN Ordering Facility: [facility] Address: [address] [place] [address] Performed By: #### 5 8410-2 #### [facility] CLIA [id number] [address] [place] [address] [place] MCHC (RBC) [Mass/Vol] 33.7 g/dL Normal 30.5-36.0 [facility] Comment on above: Order Comment: Speci men Type: BLOOD SPECIMEN Ordering Facility: [facility] Address: [address] [place] [address] Performed By: #### 5 8410-2 #### [facility] CLIA [id number] [address] [place] [address] [place] MCV (RBC) [Entitic vol] 90.7 fL Normal 80.0-100.0 [facility] Comment on above: Order Comment: Speci men Type: BLOOD SPECIMEN Ordering Facility: [facility] Address: [address] [place] [address] Performed By: #### 5 8410-2 #### [facility] CLIA [id number] [address] [place] [address] [place] Nucleated RBC (Bld) [#/Vol] 10*3/uL Normal <0.01 [facility] Comment on above: Order Comment: Speci men Type: BLOOD SPECIMEN Ordering Facility: [facility] Address: [address] [place] [address] Performed By: #### 5 8410-2 #### [facility] CLIA [id number] [address] [place] [address] [place] Platelet mean volume (Bld) [Entitic vol] 8.9 fL Low 9.0-12.7 [facility] Comment on above: Order Comment: Speci men Type: BLOOD SPECIMEN Ordering Facility: [facility] Address: [address] [place] [address] Performed By: #### 5 8410-2 #### [facility] CLIA [id number] [address] [place] [address] [place] Platelets (Bld) [#/Vol] 293 10*3/uL Normal 150-400 [facility] Comment on above: Order Comment: Speci men Type: BLOOD SPECIMEN Ordering Facility: [facility] Address: [address] [place] [address] Performed By: #### 5 8410-2 #### [facility] CLIA [id number] [address] [place] [address] [place] RBC (Bld) [#/Vol] 3.86 10*6/uL Low 3.90-5.20 [facility] Comment on above: Order Comment: Speci men Type: BLOOD SPECIMEN Ordering Facility: [facility] Address: [address] [place], [place] [id number] Performed By: #### 5 8410-2 #### [facility] CLIA [id number] [place] [address] [place] WBC (Bld) [#/Vol] 11.25 10*3/uL High 3.70-11.00 [facility] Comment on above: Order Comment: Speci men Type: BLOOD SPECIMEN Ordering Facility: [facility] Address: [address] [place], [place] [address] Performed By: #### 5 8410-2 #### [facility] CLIA [id number] [place] [address] OF [facility] CONSULT PROGon 03-30-2022 CONSULT PROG HNO ID: [id number] Author: Joslyn Jain APRN.AUTOMOTIVE SERVICE TECHNICIAN Service: Pain Management Author Type: Nurse Practitioner Type: Consult Progress Note Filed: 03/30/2022 1:06 PM Note Text: PERIPHERAL NERVE CATHETER PROGRESS NOTE PATIENT NAME: Mary Leal SERVICE DATE: 03/30/2022 SERVICE TIME: 09:54 AM ASSESSMENT Mary Leal is a 51 year old female with past medical hx of Asthma, HTN, BPD, Dyslipidemia and colonic inertia who is now POD # 2 s/p Hand assisted TAC, EI takedown, iliorectal anastomosis with bilateral single shots and bilateral catheters placed to aid in post op pain control. Ms. Leal is resting in bed, she reported better abd pain controlled today compared to yesterday. Bilateral TAP sites without signs or symptoms of infection, no erythema, tenderness, drainage, or warmth. She is tolerating PO, denies N/V PLAN/Recs: 1. ContinueTAPS X 2 to 0/8/30/2 each, likely will remove blocks tomorrow 2. Continue pain regimen per primary team The plan was discussed in detail with patient +/- family, bedside RN, APMS staff and primary service, who expressed agreement, understanding and comfort with the plan. Thank you for including us in her care. Please call us with any questions or concerns. APMS will continue to follow. SUBJECTIVE CHIEF COMPLAINT: Post op pain PRIMARY SERVICE: Colorectal INTERVAL HPI: Mary Leal is a 51 year old female who is POD # 2 s/p Hand assisted TAC, EI takedown, iliorectal anastomosis with bilateral single shots and bilateral catheters placed to aid in post op pain control. Pain well control with current regimen. Pain level is 5 at rest NA with ambulation on a scale of 0-10. Is the patient tolerating Physical Therapy?: yes Pain at surgical site? Yes, abd Character: aching Duration: intermittent Radiation: No Relieved: Yes Is patient satisfied with pain control: Yes Overnight Events: None Overnight Pain Interventions: no Allergy: ALLERGIES Allergen Reactions - Risperidone Intolerance Breast discharge MEDICATIONS: I have interrogated the multi therapy pump for the correct settings and solution: Yes. Solution Ropivacaine 0.2%, rate 0/8/30/2 ml/hr. Adjuvant Pain Medication: See below. Current Facility-Administered Medications Medication Dose Route Frequency - NaCl 0.9% iv infusion 5-30 mL/hr INTRAVENOUS CONTINUOUS - lactated ringers 250-500 mL iv bolus 250-500 mL INTRAVENOUS PRN - carBAMazepine XR 400 mg tab(s) (TEGretol XR) 400 mg ORAL q 12 HR - albuterol HFA 90 mcg/actuation 2 Puff (PROVENTIL HFA, VENTOLIN HFA) 2 Puff INHALATION q 4 H PRN - traZODone 150 mg tab(s) (DESYREL) 150 mg ORAL AT BEDTIME - atenolol 50 mg tab(s) (TENORMIN) 50 mg ORAL DAILY - rOPINIRole 2 mg tab(s) (REQUIP) 2 mg ORAL DAILY - rOPINIRole (REQUIP) tab(s) 4 mg 4 mg ORAL AT BEDTIME - clonazePAM 0.5 mg tab(s) (KlonoPIN) 0.5 mg ORAL BID - sodium chloride 0.9 % (flush) 3-5 mL (BD POSIFLUSH) 3-5 mL INTRAVENOUS q 12 H - NaCl 0.9% iv flush bag 20 mL INTRAVENOUS PRN - ondansetron (PF) 4 mg injection (ZOFRAN) 4 mg INTRAVENOUS q 6 H PRN - acetaminophen 1,000 mg tab(s) (TYLENOL) 1,000 mg ORAL q 6 H - gabapentin 300 mg cap(s) (NEURONTIN) 300 mg ORAL q 8 H - keTORolac 15 mg injection (TORADOL) 15 mg INTRAVENOUS q 6 H Followed by - ibuprofen 400 mg tab(s) (MOTRIN) 400 mg ORAL q 8 H - enoxaparin 40 mg injection (LOVENOX) 40 mg SUBCUTANEOUS q 24 HR - polyethylene glycol 3350 17 g packet (MIRALAX, GLYCOLAX) 17 g ORAL DAILY - ropivacaine nerve block 0.2% (2 mg/mL) - 200 mL PERIPHERAL NERVE CATHETER CONTINUOUS - ropivacaine nerve block 0.2% (2 mg/mL) - 200 mL PERIPHERAL NERVE CATHETER CONTINUOUS - atorvastatin 20 mg tab(s) (LIPITOR) 20 mg ORAL DAILY - vortioxetine 10 mg tab(s) (TRINTELLIX) 10 mg ORAL DAILY - ARIPiprazole 30 mg tab(s) (ABILIFY) 30 mg ORAL DAILY - famotidine 20 mg tab(s) (PEPCID) 20 mg ORAL BID - HYDROmorphone 0.2 mg injection (DILAUDID) 0.2 mg INTRAVENOUS q 4 H PRN - oxyCODONE IR 5-10 mg tab(s) (ROXICODONE) 5-10 mg ORAL q 4 H PRN - lactobacillus rhamnosus 10 billion cell (CULTURELLE) capsule 1 capsule ORAL DAILY - prochlorperazine 10 mg injection (COMPAZINE) 10 mg INTRAVENOUS q 6 H PRN OBJECTIVE: PHYSICAL EXAM: BP 117/66 Pulse 98 Temp 36.9 ?C (98.4 ?F) Resp 17 SpO2 94% Affect: awake, alert and oriented General Impression: appears comfortable Catheter sites are clean, non-tender and dressing intact. Respiratory Exam: Respirations: Breathing appears normal Thoracostomy tube?: No Gastrointestinal Exam: Abdomen: abd incision c/d/i NG?: No DATA: Lab Results Component Latest Ref Rng AND Units 03/30/2022 Glucose 74 - 99 mg/dL 117 (H) BUN 7 - 21 mg/dL 13 Creatinine 0.58 - 0.96 mg/dL 0.69 Sodium 136 - 144 mmol/L 137 Potassium 3.7 - 5.1 mmol/L 3.9 Chloride 97 - 105 mmol/L 103 CO2 22 - 30 mmol/L 24 Anion Gap 9 - 18 mmol/L 10 Calcium 8.5 - 10.2 mg/dL 8.5 eGFR >= (more content not included)... Normal [facility] Magnesium [Mass/Vol] 1.6 mg/dL Low 1.7-2.3 [facility] Comment on above: Order Comment: Speci men Type: BLOOD SPECIMEN Ordering Facility: [facility] Address: [address] [place] [address] Performed By: #### 1 9123-9, 2777-1, 02506-1 #### [facility] CLIA [id number] [place] [address] Phosphate [facility] Phosphate [Mass/Vol] 2.9 mg/dL Normal 2.7-4.8 [facility] Comment on above: [facility]: [facility]: BLOOD [facility] Ordering Facility: [facility] Address: [address] [place] [address] Performed By: #### 1 9123-9, 2777-1, 89422-9 #### [facility] CLIA [id number] [address] [place] [address] [place] ANES POSTPROC EVALon 022 ANES POSTPROC EVAL HNO ID: [id number] Author: Nathanael Craig DO Service: Anesthesiology Author Type: Anesthesiologist Type: Anesthesia Postprocedure Evaluation Filed: 03/29/2022 8:29 AM Note Text: POST ANESTHESIA EVALUATION NOTE : 1970 Procedure Summary Date: 03/28/22 Room / Location: OR / OR Anesthesia Start: 907 Anesthesia Stop: 1629 Procedures: LAPAROSCOPIC TOTAL COLECTOMY LITHOTOMY (N/A Abdomen) LAP CLOSURE OF ENTEROSTOMY W/ RESECTION AND ANASTOMOSIS (N/A Abdomen) Diagnosis: Attention to ileostomy (HCC) (Attention to ileostomy (HCC) [Z43.2]) Surgeons: Mary Obrien MD Responsible Provider: Nathanael Craig DO Anesthesia Type: general ASA Status: 2 Anesthesia Type: general Airway Type: ETT Last Vitals Vitals Value Taken Time BP 99/56 03/29/22 0736 Temp 37 ?C (98.6 ?F) 03/29/22 0736 HR SpO2 102 03/28/22 1624 Resp 18 03/29/22 0736 SpO2 94 % 03/29/22 0736 Post Anesthesia Patient Status Patient Evaluation: PACU. PACU/ICU Patient Condition: stable. Neurological Status: aware and responsive. Pulmonary Status: breathing comfortably on room air Airway Control: returned to baseline unsupported. Cardiovascular Status: stable. Pain Management: clinically adequate - multimodal analgesia pain management approach Postoperative Hydration: acceptable. Intraoperative Events: no significant anesthesia events Post Operative Nausea/Vomiting Status: no significant post operative nausea or vomiting Anesthetic Observations: Recommendation: continue current plan of care. Anesthesia Observations No Documentation SIGNATURE: Nathanael Craig DO PATIENT NAME: Mary Leal DATE: March 29, 2022 TIME: 8:29 AM CSN: [id number] [facility] 2000 panelon 03-29-2022 Anion gap [Moles/Vol] 9 mmol/L Normal 9-18 [facility] Comment on above: Order Comment: Speci [facility] Type: BLOOD SPECIMEN Ordering Facility: [facility] Address: [address] [place] [address] Performed By: #### 5 8410-2 #### [facility] CLIA [id number] [address] [place] [address] [place] Calcium [Mass/Vol] 7.9 mg/dL Low 8.5-10.2 [facility] Comment on above: Order Comment: Speci men Type: BLOOD SPECIMEN Ordering Facility: [facility] Address: [address] [address] Performed By: #### 5 8410-2 #### [facility] CLIA [id number] [address] [place] [address] [place] Chloride [Moles/Vol] 105 mmol/L Normal 97-105 [facility] Comment on above: Order Comment: Speci men Type: BLOOD SPECIMEN Ordering Facility: [facility] Address: [address] [address] Performed By: #### 5 8410-2 #### [facility] CLIA [id number] [address] [place] [address] [place] CO2 [Moles/Vol] 24 mmol/L Normal 22-30 [facility] Comment on above: Order Comment: Speci men Type: BLOOD SPECIMEN Ordering Facility: [facility] Address: [address] [place] [address] Performed By: #### 5 8410-2 #### [facility] CLIA [id number] [address] [place] [address] [place] Creatinine [Mass/Vol] 0.70 mg/dL Normal 0.58-0.96 [facility] Comment on above: Order Comment: Speci men Type: BLOOD SPECIMEN Ordering Facility: [facility] Address: [address] [place] [address] Performed By: #### 5 8410-2 #### [facility] CLIA [id number] [address] [place] [address] [place] ESTIMATED GLOMERULAR FILTRAT ION RATE 106 mL/min/1.73m??? Normal >=60 [facility] Comment on above: Order Comment: Speci men Type: BLOOD SPECIMEN Ordering Facility: [facility] Address: [address] [place] [address] Result Comment: Mary mated Glomerular Filtration Rate (eGFR) is calculated using the 2020 CKD-EPI creatinine equation. This equation utilizes serum creatinine, sex, and age as parameters. The creatinine assay has traceable calibration to isotope dilution-mass spectrometry. Refer to KDIGO guidelines for clinical interpretation. In patients with unstable renal function, e.g. those with acute kidney injury, the eGFR may not accurately reflect actual GFR. Performed By: #### 5 8410-2 #### [facility] CLIA [id number] [address] [place] [address] [place] Glucose [Mass/Vol] 92 mg/dL Normal 74-99 [facility] Comment on above: Order Comment: Speci men Type: BLOOD SPECIMEN Ordering Facility: [facility] Address: [address] [place] [address] Result Comment: The [place] Diabetes Association (ADA) provides guidance for cutoff values for fasting glucose and random glucose. The ADA defines fasting as no caloric intake for at least 8 hours. Fasting plasma glucose results between 100 to 125 mg/dL indicate increased risk for diabetes (prediabetes). Fasting plasma glucose results greater than or equal to 126 mg/dL meet the criteria for diagnosis of diabetes. In the absence of unequivocal hyperglycemia, results should be confirmed by repeat testing. In a patient with classic symptoms of hyperglycemia or hyperglycemic crisis, random plasma glucose results greater than or equal to 200 mg/dL meet the criteria for diagnosis of diabetes. Reference: Standards of Medical Care in Diabetes 2016, [place] [employer]. Diabetes Care. 2016.39(Suppl 1). Performed By: #### 5 8410-2 #### [facility] CLIA [id number] [address] [place] [address] [place] Potassium [Moles/Vol] 4.1 mmol/L Normal 3.7-5.1 [facility] Comment on above: Order Comment: Leanne terry Type: BLOOD SPECIMEN Ordering Facility: [facility] Address: [address] [place] [address] Performed By: #### 5 8410-2 #### [facility] CLIA [id number] [address] [place] [address] [place] Sodium [Moles/Vol] 138 mmol/L Normal 136-144 [facility] Comment on above: Order Comment: Leanne terry Type: BLOOD SPECIMEN Ordering Facility: [facility] Address: [address] [place] [address] Performed By: #### 5 8410-2 #### [facility] CLIA [id number] [address] [place] [address] [place] Urea nitrogen [Mass/Vol] 12 mg/dL Normal 7-21 [facility] Comment on above: Order Comment: Leanne terry Type: BLOOD SPECIMEN Ordering Facility: [facility] Address: [address] [place] [address] Performed By: #### 5 8410-2 #### [facility] CLIA [id number] [address] [place] [address] [place] CBC W Auto Differential pane l (Bld)on 03-29-2022 Basophils (Bld) [#/Vol] 0.04 10*3/uL Normal <0.11 [facility] Comment on above: Order Comment: Speci men Type: BLOOD SPECIMEN Ordering Facility: [facility] Address: [address] [place] [address] Performed By: #### 5 7021-8 #### [facility] CLIA [id number] [address] [place] [address] [place] Basophils/100 WBC (Bld) 0.6 % Normal [facility] Comment on above: Order Comment: Speci men Type: BLOOD SPECIMEN Ordering Facility: [facility] Address: [address] [place] [address] Performed By: #### 5 7021-8 #### [facility] CLIA [id number] [address] [place] [address] [place] Differential cell count method Nom (Bld) Auto Normal [facility] Comment on above: Order Comment: Speci men Type: BLOOD SPECIMEN Ordering Facility: [facility] Address: [address] [place] [address] Performed By: #### 5 7021-8 #### [facility] CLIA [id number] [address] [place] [address] [place] Eosinophils (Bld) [#/Vol] 0.16 10*3/uL Normal <0.46 [facility] Comment on above: Order Comment: Speci men Type: BLOOD SPECIMEN Ordering Facility: [facility] Address: [address] [place] [address] Performed By: #### 5 7021-8 #### [facility] CLIA [id number] [address] [place] [address] [place] Eosinophils/100 WBC (Bld) 2.3 % Normal [facility] Comment on above: Order Comment: Speci men Type: BLOOD SPECIMEN Ordering Facility: [facility] Address: [address] [place] [address] Performed By: #### 5 7021-8 #### [facility] CLIA [id number] [address] [place] [address] [place] Erythrocyte distribution wid th (RBC) [Ratio] 12.8 % Normal 11.5-15.0 [facility] Comment on above: Order Comment: Speci men Type: BLOOD SPECIMEN Ordering Facility: [facility] Address: [address] [place] [address] Performed By: #### 5 7021-8 #### [facility] CLIA [id number] [address] [place] [address] [place] Hematocrit (Bld) [Volume fraction] 32.3 % Low 3 6.0-46.0 [facility] Comment on above: Order Comment: Speci men Type: BLOOD SPECIMEN Ordering Facility: [facility] Address: [address] [place] [address] Performed By: #### 5 7021-8 #### [facility] CLIA [id number] [address] [place] [address] [place] Hemoglobin (Bld) [Mass/Vol] 10.7 g/dL Low 11.5-15. 5 [facility] Comment on above: Order Comment: Speci men Type: BLOOD SPECIMEN Ordering Facility: [facility] Address: [address] [place] [address] Performed By: #### 5 7021-8 #### [facility] CLIA [id number] [address] [place] [address] [place] IMMATURE GRAN % 0.3 % Normal [facility] Comment on above: Order Comment: Speci men Type: BLOOD SPECIMEN Ordering Facility: [facility] Address: [address] [place] [address] Performed By: #### 5 7021-8 #### [facility] CLIA [id number] [address] [place] [address] [place] IMMATURE GRAN ABS <0.03 Normal <0.10 [facility] Comment on above: Order Comment: Speci men Type: BLOOD SPECIMEN Ordering Facility: [facility] Address: [address] [place] [address] Performed By: #### 5 7021-8 #### [facility] CLIA [id number] [address] [place] [address] [place] Lymphocytes (Bld) [#/Vol] 1.39 10*3/uL Normal 1.00-4.0 0 [facility] Comment on above: Order Comment: Speci men Type: BLOOD SPECIMEN Ordering Facility: [facility] Address: [address] [place] [address] Performed By: #### 5 7021-8 #### [facility] CLIA [id number] [address] [place] [address] [place] Lymphocytes/100 WBC (Bld) 19.7 % Normal [facility] Comment on above: Order Comment: Speci men Type: BLOOD SPECIMEN Ordering Facility: [facility] Address: [address] [place] [address] Performed By: #### 5 7021-8 #### [facility] CLIA [id number] [address] [place] [address] [place] MCH (RBC) [Entitic mass] 29.8 pg Normal 26.0-34.0 [facility] Comment on above: Order Comment: Speci men Type: BLOOD SPECIMEN Ordering Facility: [facility] Address: [address] [place] [address] Performed By: #### 5 7021-8 #### [facility] CLIA [id number] [address] [place] [address] [place] MCHC (RBC) [Mass/Vol] 33.1 g/dL Normal 30.5-36.0 [facility] Comment on above: Order Comment: Speci men Type: BLOOD SPECIMEN Ordering Facility: [facility] Address: [address] [place] [address] Performed By: #### 5 7021-8 #### [facility] CLIA [id number] [address] [place] [address] [place] MCV (RBC) [Entitic vol] 90.0 fL Normal 80.0-100.0 [facility] Comment on above: Order Comment: Speci men Type: BLOOD SPECIMEN Ordering Facility: [facility] Address: [address] [place] [address] Performed By: #### 5 7021-8 #### [facility] CLIA [id number] [address] [place] [address] [place] Monocytes (Bld) [#/Vol] 0.55 10*3/uL Normal <0.87 [facility] Comment on above: Order Comment: Speci men Type: BLOOD SPECIMEN Ordering Facility: [facility] Address: [address] [place] [address] Performed By: #### 5 7021-8 #### [facility] CLIA [id number] [address] [place] [address] [place] Monocytes/100 WBC (Bld) 7.8 % Normal [facility] Comment on above: Order Comment: Speci men Type: BLOOD SPECIMEN Ordering Facility: [facility] Address: [address] [place] [address] Performed By: #### 5 7021-8 #### [facility] CLIA [id number] [address] [place] [address] [place] Neutrophils (Bld) [#/Vol] 4.88 10*3/uL Normal 1.45-7.5 0 [facility] Comment on above: Order Comment: Speci men Type: BLOOD SPECIMEN Ordering Facility: [facility] Address: [address] [place] [address] Performed By: #### 5 7021-8 #### [facility] CLIA [id number] [address] [place] [address] [place] Neutrophils/100 WBC (Bld) 69.3 % Normal [facility] Comment on above: Order Comment: Speci men Type: BLOOD SPECIMEN Ordering Facility: [facility] Address: [address] [place] [address] Performed By: #### 5 7021-8 #### [facility] CLIA [id number] [address] [place] [address] [place] Nucleated RBC (Bld) [#/Vol] 10*3/uL Normal <0.01 [facility] Comment on above: Order Comment: Speci men Type: BLOOD SPECIMEN Ordering Facility: [facility] Address: [address] [place] [address] Performed By: #### 5 7021-8 #### [facility] CLIA [id number] [address] [place] [address] [place] Nucleated RBC/100 WBC (Bld) [Ratio] 0.0 /100 WBC Normal [facility] Comment on above: Order Comment: Speci men Type: BLOOD SPECIMEN Ordering Facility: [facility] Address: [address] [place] [address] Performed By: #### 5 7021-8 #### [facility] CLIA [id number] [address] [place] [address] [place] Platelet mean volume (Bld) [Entitic vol] 9.0 fL Normal 9.0-12.7 [facility] Comment on above: Order Comment: Speci men Type: BLOOD SPECIMEN Ordering Facility: [facility] Address: [address] [place] [address] Performed By: #### 5 7021-8 #### [facility] CLIA [id number] [address] [place] [address] [place] Platelets (Bld) [#/Vol] 241 10*3/uL Normal 150-400 [facility] Comment on above: Order Comment: Speci men Type: BLOOD SPECIMEN Ordering Facility: [facility] Address: [address] [place] [address] Performed By: #### 5 7021-8 #### [facility] CLIA [id number] [address] [place] [address] [place] RBC (Bld) [#/Vol] 3.59 10*6/uL Low 3.90-5.20 [facility] Comment on above: Order Comment: Speci men Type: BLOOD SPECIMEN Ordering Facility: [facility] Address: [address] [place] [address] Performed By: #### 5 7021-8 #### [facility] CLIA [id number] [address] [place] [address] [place] WBC (Bld) [#/Vol] 7.04 10*3/uL Normal 3.70-11.00 [facility] Comment on above: Order Comment: Speci men Type: BLOOD SPECIMEN Ordering Facility: [facility] Address: [address] [place] [address] Performed By: #### 5 7021-8 #### [facility] CLIA [id number] CONSULT PROGon 03-29-2022 CONSULT PROG HNO ID: [id number] Author: Joslyn Jain APRN.AUTOMOTIVE SERVICE TECHNICIAN Service: Pain Management Author Type: Nurse Practitioner Type: Consult Progress Note Filed: 03/29/2022 12:11 PM Note Text: PERIPHERAL NERVE CATHETER PROGRESS NOTE PATIENT NAME: Mary Leal SERVICE DATE: 03/29/2022 SERVICE TIME: 11:04 AM ASSESSMENT Mary Leal is a 51 year old female with past medical hx of Asthma, HTN, BPD, Dyslipidemia and colonic inertia who is now POD # 1 s/p Hand assisted TAC, EI takedown, iliorectal anastomosis with bilateral single shots and bilateral catheters placed to aid in post op pain control. Ms. Leal is resting in bed, she reported better abd pain controlled at this time Bilateral TAP sites without signs or symptoms of infection, no erythema, tenderness, drainage, or warmth. She is on liq diet, currently on Dilaudid NEGATIVE DEVELOPER at 0/0.2/10/6 last 2 hours 06/27 bolus utilized PLAN/Recs: 1. Increased TAPS X 2 to 0/8/30/2 each 2. Continue pain regimen per primary team The plan was discussed in detail with patient +/- family, bedside RN, APMS staff and primary service, who expressed agreement, understanding and comfort with the plan. Thank you for including us in her care. Please call us with any questions or concerns. APMS will continue to follow. SUBJECTIVE CHIEF COMPLAINT: Post op pain PRIMARY SERVICE: Colorectal INTERVAL HPI: Mary Leal is a 51 year old female who is POD # 1 s/p Hand assisted TAC, EI takedown, iliorectal anastomosis with bilateral single shots and bilateral catheters placed to aid in post op pain control. Pain level is 5 at rest NA with ambulation on a scale of 0-10. Is the patient tolerating Physical Therapy?: not yet Pain at surgical site? Yes, abd Character: aching Duration: intermittent Radiation: No Relieved: Yes - NOW with increase NEGATIVE DEVELOPER and Repositioning and NEGATIVE DEVELOPER Is patient satisfied with pain control: Yes Overnight Events: None Overnight Pain Interventions: no Allergy: ALLERGIES Allergen Reactions - Risperidone Intolerance Breast discharge MEDICATIONS: I have interrogated the multi therapy pump for the correct settings and solution: Yes. Solution Ropivacaine 0.2%, rate 0/8/30/2 ml/hr. Adjuvant Pain Medication: See below. Current Facility-Administered Medications Medication Dose Route Frequency - NaCl 0.9% iv infusion 5-30 mL/hr INTRAVENOUS CONTINUOUS - lactated ringers 250-500 mL iv bolus 250-500 mL INTRAVENOUS PRN - carBAMazepine XR 400 mg tab(s) (TEGretol XR) 400 mg ORAL q 12 HR - albuterol HFA 90 mcg/actuation 2 Puff (PROVENTIL HFA, VENTOLIN HFA) 2 Puff INHALATION q 4 H PRN - traZODone 150 mg tab(s) (DESYREL) 150 mg ORAL AT BEDTIME - atenolol 50 mg tab(s) (TENORMIN) 50 mg ORAL DAILY - rOPINIRole 2 mg tab(s) (REQUIP) 2 mg ORAL DAILY - rOPINIRole (REQUIP) tab(s) 4 mg 4 mg ORAL AT BEDTIME - clonazePAM 0.5 mg tab(s) (KlonoPIN) 0.5 mg ORAL BID - sodium chloride 0.9 % (flush) 3-5 mL (BD POSIFLUSH) 3-5 mL INTRAVENOUS q 12 H - NaCl 0.9% iv flush bag 20 mL INTRAVENOUS PRN - lactated ringers iv infusion 75 mL/hr INTRAVENOUS CONTINUOUS - alvimopan 12 mg cap(s) (ENTEREG) 12 mg ORAL BID - famotidine 20 mg injection (PEPCID) 20 mg INTRAVENOUS BID - ondansetron (PF) 4 mg injection (ZOFRAN) 4 mg INTRAVENOUS q 6 H PRN - acetaminophen 1,000 mg tab(s) (TYLENOL) 1,000 mg ORAL q 6 H - gabapentin 300 mg cap(s) (NEURONTIN) 300 mg ORAL q 8 H - keTORolac 15 mg injection (TORADOL) 15 mg INTRAVENOUS q 6 H Followed by - [START ON 03/30/2022] ibuprofen 400 mg tab(s) (MOTRIN) 400 mg ORAL q 8 H - enoxaparin 40 mg injection (LOVENOX) 40 mg SUBCUTANEOUS q 24 HR - polyethylene glycol 3350 17 g packet (MIRALAX, GLYCOLAX) 17 g ORAL DAILY - ropivacaine nerve block 0.2% (2 mg/mL) - 200 mL PERIPHERAL NERVE CATHETER CONTINUOUS - ropivacaine nerve block 0.2% (2 mg/mL) - 200 mL PERIPHERAL NERVE CATHETER CONTINUOUS - HYDROmorphone NEGATIVE DEVELOPER 0.5 mg/mL in NaCl 0.9% 100 mL INTRAVENOUS CONTINUOUS - atorvastatin 20 mg tab(s) (LIPITOR) 20 mg ORAL DAILY - vortioxetine 10 mg tab(s) (TRINTELLIX) 10 mg ORAL DAILY - magnesium sulfate 2 g in sterile water 50 ml 2 g INTRAVENOUS ONCE OBJECTIVE: PHYSICAL EXAM: BP 99/56 Pulse 79 Temp 37 ?C (98.6 ?F) (Oral) Resp 18 SpO2 94% Affect: awake, alert and oriented General Impression: appears comfortable Catheter sites are clean, non-tender and dressing intact. Respiratory Exam: Respirations: Breathing appears normal Thoracostomy tube?: No Gastrointestinal Exam: Abdomen: abd incision c/d/i NG?: No DATA: Lab Results Component Latest Ref Rng AND Units 03/29/2022 WBC 3.70 - 11.00 k/uL 7.04 RBC 3.90 - 5.20 m/uL 3.59 (L) Hemoglobin 11.5 - 15.5 g/dL 10.7 (L) Hematocrit 36.0 - 46.0 % 32.3 (L) MCV 80.0 - 100.0 fL 90.0 MCH 26.0 - 34.0 pg 29.8 MCHC 30.5 - 36.0 g/dL 33.1 RDW-CV 11.5 - 15.0 % 12.8 Platelet Count 150 - 400 k/uL 241 MPV 9.0 - 12.7 fL 9.0 Neut% % 69.3 (more content not included)... Normal [facility] Magnesium SerPl-mCncon 03-29 Magnesium [Mass/Vol] 1.4 mg/dL Low 1.7-2.3 [facility] Comment on above: Order Comment: Speci men Type: BLOOD SPECIMEN Ordering Facility: [facility] Address: [facility] [place] [address] Performed By: #### 5 8410-2 #### [facility] [id number] OF [facility] NURSING PROGon 03-29-2022 NURSING PROG HNO ID: [id number] Author: Juan Crowley RN Service: Nursing Author Type: Registered Nurse Type: Nursing Progress Note Filed: 03/29/2022 2:00 PM Note Text: Nursing Progress Note Patient Name: Mary Leal Patient Location: / Daily Note: Patient VSS. RA POx. Pain level better controlled now that NEGATIVE DEVELOPER initiated. B/L Ropivacaine Tap Blocks with dressings CDI. Magnesium replenished as ordered. Transverse and lap sites ELENI with glue. Dressing to old ostomy saturated and changed. Ana in place. Patient utilizing splint and ice packs prn. Call discontinued as ordered and patient voided. Tolerating small amounts of clears with no N/V. Up with assist of one on transfer d/t lines. Gait slow and steady. Tolerated approximately 2 hours in chair this a.m. Ambulated approximately 75 [address]. Encouraging TCANDDB and I.S. usage. Plan of care round completed with Dr. Clark and staff. This note was completed by: Juan Crowley [facility] NURSING PROG HNO ID: [id number] Author: Kev Leone RN Service: ? Author Type: Registered Nurse Type: Nursing Progress Note Filed: 03/29/2022 3:53 AM Note Text: Nursing Progress Note Patient Name: Mary Leal Patient Location: / Daily Note: 0350: Pt states she is in 10/10 pain, pt has no PO pain meds ordered, page sent to surgery resident This note was completed by: Kev Leone [facility] PT EDon 03-29-2022 PT ED HNO ID: [id number] Author: Merced Morales DTR Service: Nutrition Therapy Author Type: Computed Tomography Scanner Operator Type: Patient Education Filed: 03/29/2022 11:05 AM Note Text: NUTRITION THERAPY PATIENT EDUCATION SERVICE DATE: 03/29/2022 SERVICE TIME: 10:00 AM TOPIC: Diet: GI Soft for ostomy closure LEARNING ASSESSMENT Individuals Assessed: Patient Preferred Learning Method: : Verbal Instruction and Written Instruction Barriers to Learning: : None Evident LEARNING RESPONSE Instruction Provided to: Patient Patient / Family Response: Verbalizes Understanding Method of Instruction: Written instruction - handouts Verbal instruction Material(s) Provided to Patient: G/L for GI Soft Diet Follow-Up Plan: Patient instructed to call with any further issues Referral (Recommendation): Nutrition - Inpatient MNT Billing: $ Routine Care : 16-30 minutes SIGNATURE: Merced Morales DTR PATIENT NAME: Mary Leal DATE: March 29, 2022 TIME: 11:04 AM PAGER: [facility] Phosphate SerPl-mCncon 03-29 Phosphate [Mass/Vol] 2.9 mg/dL Normal 2.7-4.8 [facility] Comment on above: Order Comment: Speci men Type: BLOOD SPECIMEN Ordering Facility: [facility] Address: [address] [place] [address] Performed By: #### 5 8410-2 #### [facility] CLIA [id number] [address] [place] [address] OF [facility] ANES PRE-OPon 03-28-2022 ANES PRE-OP HNO ID: [id number] Author: Anibal Bertrand MD Service: Anesthesiology Author Type: Anesthesiologist Type: Anesthesia Preprocedure Evaluation Filed: 03/28/2022 8:29 AM Note Text: ANESTHESIOLOGY DAY OF SURGERY NOTE : 1970 Procedure Information Date/Time: 03/28/22829 Procedures: LAPAROSCOPIC TOTAL COLECTOMY LITHOTOMY (N/A Abdomen) LAP CLOSURE OF ENTEROSTOMY W/ RESECTION AND ANASTOMOSIS (N/A Abdomen) - ileorectal anastomosis, takedown of ileostomy Location: [facility] OR12 / [facility] OR Surgeons: Mary Obrien MD Estimated body mass index is 31.41 kg/m? as calculated from the following: Height as of 03/15/22: 162.6 cm (5' 4 ). Weight as of 03/15/22: 83 kg (183 lb). Most recent hematocrit and potassium results: Hematocrit 37.6 03/14/2022 Potassium 4.5 03/14/2022 Relevant Problems CARDIO (+) HTN (hypertension) GI (+) GERD (gastroesophageal reflux disease) NEURO-PSYCH (+) History of 2019 novel coronavirus disease (COVID-19) PULMONARY (+) Asthma (+) History of 2019 novel coronavirus disease (COVID-19) Other (+) Arthritis of right acromioclavicular joint (+) Impingement syndrome of right shoulder I - PHYSICAL EVALUATION AIRWAY Patient intubated: No. Tracheostomy tube not present Mallampati: II. TM distance: >3 FB. Neck ROM: full ROM without neurological symptoms. Mouth opening: adequate. Short neck: no. Thick neck: no DENTAL Dental findings: teeth intact. Additional exam findings: no II - ANESTHESIA PLAN ASA Score: 2 Anesthetic Plan: general Airway type: ETT The patient is not a current smoker. NPO Status: adequate Monitoring plan: Standard ASA. Anesthetic plan additional comments: Symptoms of Sleep Apnea: Denies Previous Anesthesia: No history of adverse event Family history of anesthetic problems: None Functional Capacity Assessment:Denies chest pain and SOB with exertion. Denies change in functional capacity. History of GERD: Yes- Well controlled with no positional symptoms Most recent lab results: Hemoglobin 12.8 03/14/2022 Hematocrit 37.6 03/14/2022 Potassium 4.5 03/14/2022 Platelet Count 385 03/14/2022 Creatinine 0.69 03/14/2022 . Postoperative analgesic plan: multimodal analgesia. Informed Consent Anesthetic risks, benefits, alternatives, personnel and consent discussed: yes. Patient / Responsible Alliance Party agrees to proceed: yes Patient / Surrogate agrees to blood products: yes DNR status not reviewed with patient and/or family prior to surgery. Significant changes in the patient condition since the History and Physical, not otherwise documented in primary service progress note: no. Potential Anesthesia issues that may suggest increased risk of complications or contraindication to planned procedure: none. Vitals Value Taken Time BP 114/77 03/28/22812 Pulse 80 03/28/22812 Resp Temp 36.1 ?C (97 ?F) 03/28/22812 SpO2 98 % 03/28/22812 Facility-Administered Medications as of 03/28/2022 Medication Dose Route Frequency - lidocaine 10 mg/mL (1 %) 1-2 mg injection (XYLOCAINE) 0.1-0.2 mL INTRADERMAL PRN - lactated ringers iv infusion 5-30 mL/hr INTRAVENOUS CONTINUOUS - cefTRIAXone 2 g in D5W 100 mL MB+ (ROCEPHIN) 2 g INTRAVENOUS Pre-Op Once - metroNIDAZOLE iv piggyback 500 mg in NaCl (iso-osmotic) 100 mL (FLAGYL) 500 mg INTRAVENOUS Pre-Op Once - [COMPLETED] alvimopan 12 mg cap(s) (ENTEREG) 12 mg ORAL Pre-Op Once - heparin 5,000 Units injection 5,000 Units SUBCUTANEOUS ONCE - [COMPLETED] acetaminophen 1,000 mg tab(s) (TYLENOL) 1,000 mg ORAL Pre-Op Once - [COMPLETED] gabapentin 300 mg cap(s) (NEURONTIN) 300 mg ORAL Pre-Op Once Outpatient Medications as of 03/28/2022 Medication Sig - vortioxetine (TRINTELLIX) 10 mg tablet Take 10 mg by mouth once daily. - clonazePAM (KLONOPIN) 1 mg tablet Take 0.5 mg by mouth twice daily. - carBAMazepine XR (TEGRETOL XR) 400 mg 12 hr tablet Take 400 mg by mouth q 12 HR. - rOPINIRole (REQUIP) 2 mg tablet Take 2 mg by mouth twice daily. Takes 2 mg in the AM and 4 mg PM - ARIPiprazole (ABILIFY) 30 mg tablet Take 30 mg by mouth once daily. - albuterol HFA (PROVENTIL HFA, VENTOLIN HFA) 90 mcg/actuation inhaler inhale 2 puffs by mouth INTO THE LUNGS every 4 hours if needed - fypumqsmieo-ilywytjrm-pcfycqav (TRELEGY ELLIPTA) 100-62.5-25 mcg Inhale 1 Puff as instructed once daily. - atenolol (TENORMIN) 50 mg tablet Take 50 mg by mouth once daily. - metroNIDAZOLE (FLAGYL) 500 mg tablet Take 1 tablet by mouth three times daily. Take 1 tablet at 6pm, 7pm, and 11pm, the evening prior to surgery. - neomycin 500 mg tablet Take 2 tablets by mouth as directed. Take 2 tablet at 6pm, 7pm, and 11pm the evening prior to surgery. - nystatin (MYCOSTATIN) cream Apply 1 application to affected area twice daily. - lactobacillus rhamnosus (CULTURELLE) 10 billion cell capsule Take 1 capsule by mouth once daily. - fluticasone (FLONASE) 50 mcg/actuation nasal spray Use 1 Morrison in each nostril on (more content not included)... [facility] BRIEF OP NOTon 03-28-2022 BRIEF OP NOT HNO ID: [id number] Author: Nita Lamas MD Service: Colorectal Author Type: Fellow Type: Brief Op Note Filed: 03/28/2022 3:43 PM Note Text: BRIEF OPERATIVE NOTE - COLORECTAL SURGERY Log ID: [id number] Surgery/Procedure Date: 03/28/2022 Incision/Procedure Start Time: 9:47 AM Incision Close/Procedure End Time: 3:40 PM Surgeon(s) and Back Filler Operator(s): Surgeon(s) and Role: * Mary Obrien MD - Primary * Yolanda Lamb MD - Resident - Assisting * Nita Lamas MD - Fellow No Additional Staff Procedures and Anesthesia: Procedure(s) and Anesthesia Type: LAPAROSCOPIC TOTAL ABDOMINAL COLECTOMY TAKEDOWN OF LOOP ILEOSTOMY ILIORECTAL ANASTOMOSIS Stoma Type: N/A Findings: no acute findings. Estimated Blood Loss: 200mL Specimens: colon and terminal ileum Diagnosis Code(s): Pre-Op Diagnosis Codes: * Attention to ileostomy (HCC) [Z43.2] Postop Diagnosis: same Drains: None Wound Classification: Class 3, operative wound contaminated with stoma closure Complications: None SIGNATURE: Nita Lamas MD PATIENT NAME: Mary Leal DATE: March 28, 2022 TIME: 3:42 PM [facility] NURSING PROGon 03-28-2022 NURSING PROG HNO ID: [id number] Author: Merced Lay RN Service: ? Author Type: Registered Nurse Type: Nursing Progress Note Filed: 03/28/2022 6:56 PM Note Text: Nursing Progress Note Patient Name: Mary Leal Patient Location: [address]/[id number] Transfer Note: Patient transferred into room/unit PK3B22 in stable condition. Actions taken: No futher actions taken at this time. Will continue to monitor and check with patient. Paged surgical team. Pt has TAP blocks, but orders were discontinued from PACU. New orders for blocks need to be placed in eMAR. Awaiting call back or orders. This note was completed by: Merced Lay [facility] NURSING PROG HNO ID: [id number] Author: Monica Nicole RN Service: Nursing Author Type: Registered Nurse Type: Nursing Progress Note Filed: 03/28/2022 6:35 PM Note Text: Nursing Progress Note Patient Name: Mary Leal Patient Location: OR [place]/[facility] OR POOL Daily Note: 0: Dr. Novak notified of patients increase in heart rate from arrival to post op. Patient HR now maintaining in the 120s. 0: vice president of academic affairs rounding at patient bedside. Dressing and abdomen assessed- drainage to be expected on island dressing. Notified him of patients HR running high and notified that patient normally takes 50mg atenolol but held today for surgery. Patient's pain managed and other VS stable at this time. vice president of academic affairs is OK with patient going to regular nursing floor at this time. Family updated. This note was completed by: Monica Nicole [facility] NURSING PROG HNO ID: [id number] Author: Vianney Chacon RN Service: Nursing Author Type: Registered Nurse Type: Nursing Progress Note Filed: 03/28/2022 7:58 AM Note Text: PATIENT EDUCATION TOPIC: PROCEDURE / SURGERY: Pre-op Teaching: Logistics Protocols PATIENT NAME: Mary Leal PATIENT LOCATION: [facility] OR POOL/[facility] OR POOL READINESS TO LEARN COGNITIVE ABILITY: Alert and oriented MOTIVATION TO LEARN: Eager Interested FAMILY SUPPORT: High - Very involved in pt care INSTRUCTION PROVIDED TO: Patient PATIENT LEARNS BEST BY: Individual Instruction FACTORS AFFECTING LEARNING: None PHYSICAL LIMITATIONS AFFECTING LEARNING: None LEARNING RESPONSE DIAGNOSIS: ADULT: Well Adult PATIENT/FAMILY RESPONSE: Verbalizes understanding of: PRE-OPERATIVE INSTRUCTIONS-Correct action to take to follow pre-operative instructions METHOD OF INSTRUCTION: Individual instruction FOLLOW-UP PLAN: Patient instructed to call with any further issues INSTRUCTIONAL AIDS USED: NA SUPPLEMENTAL MATERIAL PROVIDED TO PATIENT: None REFERRAL (RECOMMENDATION): None Electronically Signed By: Vianney Chacon [facility] OPERATIVE NOon 03-28-2022 OPERATIVE NO HNO ID: [id number] Author: Mary Obrien MD Service: Colorectal Author Type: Physician Type: Operative Report Filed: 03/28/2022 5:06 PM Note Text: COLON AND RECTAL SURGERY OPERATIVE REPORT PATIENT NAME: Mary Leal ADMISSION DATE: 03/28/2022 LOG ID: [id number] SURGERY/PROCEDURE DATE: 03/28/2022 INCISION/PROCEDURE START TIME: 9:47 AM INCISION CLOSE/PROCEDURE END TIME: 3:40 PM AGE: [age] year old SEX: female SURGEON(S)/PROCEDURALIST(S) AND CHEF BROILER OR FRY(S): Surgeon(s) and Role: * Mary Obrien MD - Primary * Yolanda Lamb MD - Resident - Assisting * Nita Lamas MD - Fellow No Additional Staff ANESTHESIA: General PREOPERATIVE DIAGNOSIS (ES): Colonic inertia Pelvic floor dysfunction POSTOPERATIVE DIAGNOSIS (ES): Colonic inertia Pelvic floor dysfunction NAME OF OPERATION: Laparoscopic Total Abdominal Colectomy, Ileostomy Takedown, Ileorectal Anastomosis, Flexible Sigmoidoscopy INDICATIONS FOR PROCEDURE: 51-year-old female who presented to clinic for evaluation of chronic constipation refractory to medical management and pelvic organ prolapse. Preoperative testing demonstrated both pelvic outlet dysfunction with rectal rectal intussusception as well as colonic inertia. We discussed a 2-phase procedure, and she underwent pelvic floor repair including laparoscopic suture rectopexy and diverting loop ileostomy 3 months ago. She has experienced a marked improvement in her symptoms of abdominal pain, nausea, and bloating. She desired to proceed with total abdominal colectomy to treat her colonic inertia. We discussed ileorectal anastomosis with the possibility that her underlying pelvic floor dysfunction may cause recurrence of symptoms. She understands this possibility and consented to proceed. OPERATIVE FINDINGS: Intact suture rectopexy repair. Redundant transverse colon. Ileorectal anastomosis hemostatic and without leak on endoscopic evaluation. DESCRIPTION OF PROCEDURE: The patient was brought into the operating room and placed under general anesthesia in lithotomy position. A Call catheter was placed. The loop ileostomy site was sutured closed. The abdomen was prepped and draped in normal sterile fashion. The patient received appropriate preop antibiotics and DVT prophylaxis. A surgical time-out was performed. The abdomen was entered through the prior Pfannenstiel incision. The fascia was incised transversely, and the muscle was divided in the midline. A GelPort was placed through this incision. Minimal intra-abdominal adhesions were encountered. A 5 mm supraumbilical trocar was placed directly onto the hand. The abdomen was insufflated with 15 millimeters of mercury and inspected. There were no gross abnormalities. 5 mm trocars were placed on the right and left abdomen under direct visualization. An additional 5 mm trocar was placed in the left upper abdomen, which provided clearance from the ileostomy site at the abdominal wall. Dissection of the left colon was commenced at the inferior mesenteric vein, which was dissected away from the fourth portion of the duodenum and divided at the inferior border of the pancreas. We then continued our posterior dissection in the retroperitoneal fusion plane until the entire left kidney had been dissected off of the splenic flexure mesentery. The left ureter was identified and protected. Attempted entry into this plane inferior to the inferior mesenteric artery was limited by adhesions from her prior suture rectopexy repair. Instead, the lateral attachments of the left colon were taken down until the prior dissection plane was met. The left ureter was identified at the level of the pelvic brim. Division of the mesentery was commenced near the colon just proximal to the upper rectum. Using the LigaSure, the mesentery was divided in a cranial direction. The splenic flexure was mobilized. The remaining omental colic attachments were then divided. The remaining distal transverse colon mesenteric attachments were then divided. The right colon dissection was commenced by incising the peritoneum overlying the ileocolic pedicle, the mesentery was dissected away from the retroperitoneum, and the right ureter was identified and protected. Medial to lateral dissection was performed, with care to identify and protect the duodenum. The dissection was continued laterally beyond the colon and hepatic flexure. The ileocolic pedicle was then isolated and identified. It was divided at its mid point with the LigaSure. The lateral attachments to the right colon were then divided. The hepatic flexure was mobilized. The gastrocolic omentum was divided across the entire transverse colon, and the lesser sac was entered from the right. At this point, the middle colic vessels were each isolated and divided with the LigaSure. We next turned our attention to takedown of the diverting loop ileostomy. The abdome (more content not included)... Normal [facility] SURGICAL PATHOLOGYon CASE REPORT Normal [facility] Comment on above: Order Comment: Speci men Type: BLOOD SPECIMEN Ordering Facility: [facility] Address: [address] [place], [place] [id number] Result Comment: Surg [facility] Pathology Report Case: [id number] Authorizing Provider: Mary Obrien MD Collected: 03/28/2022 01:43 PM Ordering Location: [facility] Received: 03/28/2022 04:10 PM Operating Room Pathologist: Areli Rodriguez MD Specimen: COLON RESECTION, terminal ileum with ileostomy Performed By: #### 5 7021-8 #### [facility] CLIA [id number] STATES OF [facility] CLINICAL HISTORY ILEORECTAL ANASTOMOS IS, TAKEDOWN OF ILEOSTOMY Normal [facility] Comment on above: Order Comment: Speci men Type: BLOOD SPECIMEN Ordering Facility: 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 The colonic mucosa reveals intact crypt architecture, and no granulomas are identified. The submucosa is somewhat fibrotic but harbors no significant inflammation. The submucosal plexuses are seen, and submucosal ganglion cells are easily identified. The muscularis propria is intact with two layers that lack significant fibrosis or inflammation. No smooth muscle inclusion bodies are seen. Ganglion cells are seen in the myenteric plexuses without evidence of associated inflammation or infectious organisms. [facility] Comment on above: Order Comment: Speci men Type: BLOOD SPECIMEN Ordering Facility: [facility] Address: [address] [place] [address] Performed By: #### 5 7021-8 #### [facility] CLIA [id number] [address] [place] [address] FINAL DIAGNOSIS [facility] Comment on above: Order Comment: Speci men Type: BLOOD SPECIMEN Ordering Facility: [facility] Address: [address] [address] Result Comment: [place] n and terminal ileum with ileostomy, resection: - Colon with patchy active colitis, submucosal fibrosis, acute serositis, and fibrovascular adhesions (see comment). - Small bowel with focal transmural defect, acute serositis, fibrovascular adhesions, and changes consistent with ileostomy site. - Benign lymph nodes. JEL 03/31/2022 Performed By: #### 5 7021-8 #### [facility] CLIA [id number] [address] [place] [address] FINAL PERFORMING LAB [facility] Comment on above: Order Comment: Speci men Type: BLOOD SPECIMEN Ordering Facility: [facility] Address: [address] [address] Result Comment: Diag nostic interpretation performed at [facility], [address] [place] [address] CLIA# [id number] Seed Tester: Joshua Anderson M.D. Performed By: #### 5 7021-8 #### [facility] [id number] STATES OF [facility] GROSS DESCRIPTION Normal [facility] Comment on above: Order Comment: Speci men Type: BLOOD SPECIMEN Ordering Facility: [facility] Address: [address] [place] [address] Result Comment: A. C OLON RESECTION. Received in formalin designated colon and terminal ileum with ileostomy is a specimen consisting of a segment of small bowel measuring 23.5 cm in length by 2 cm in circumference and colon measuring 111 cm in length and ranging in circumference from 3.3 to 8.1 cm distal to proximal. An appendix is not grossly appreciated. The proximal margin is inked blue, and the distal margin is inked orange. The mucosal surface is jaimes-pink with normal mucosal ridges. Starting 70 cm from the distal margin for a length of 12 cm petechial hemorrhage is grossly appreciated. No masses or polyps are identified. The wall the colon averages 0.3 cm in thickness. The serosal surface is jaimes-pink and smooth. Sectioning does not reveal any diverticula. Examination of the small bowel reveals a possible ileostomy site located 11 cm from the proximal margin measuring 2.3 cm in diameter. The margin is roughened with possible scant areas of cutaneous tissue. The cutaneous tissue is jaimes-simon and granular. Examination also reveals a transmural defect measuring 1 x 0.8 cm located 7 cm from the proximal margin. The mucosal surface of the small bowel is jaimes-pink with normal mucosal ridges. The mucosal surface adjacent to the ostomy site is jaimes-red and granular. The wall the small bowel averages 0.3 cm in thickness. The serosal surface has adhesions present near the ostomy site. The remainder the mucosal surface is jaimes-pink and smooth. There is no attached omentum to the colon. Sectioning of the attached soft tissue reveals sectioning attached soft tissue reveals multiple jaimes-pink to jaimes-red lymph nodes which measure up to 1.2 cm in greatest dimension. Also received in the same container is an unoriented segment of bowel which measures 3.2 cm in length by 2.6 cm in circumference. Staple lines are present at both margins which are removed. One margin is inked green, and the opposing margin is inked yellow. The mucosal surface is jaimes with normal mucosal ridges. The wall the bowel averages 0.5 cm in thickness. Sectioning does not reveal any masses or diverticula. The serosa is jaimes-pink and smooth. [employer] sections are submitted from distal to proximal as follows: A1 perpendicular distal margin, A2 perpendicular proximal margin, A3 20 cm, A4 40 cm, A5 60 cm, A6 70 cm, A7 80 cm, A8 100 cm, A9 113 cm, A10 ileocecal valve, A11 ileostomy, A12 adjacent to defect, A13 left colon lymph nodes, A14 transverse colon lymph nodes, A15 right colon lymph nodes, A16 perpendicular margins, other segment of bowel. BF March 29, 2022 9:53 AM Gross examination performed at [facility], [address] [place] [address] CLIA # [id number] Performed By: #### 5 7021-8 #### [facility] CLIA [id number] [address] [place] [address] [place] Q - CBC W/DIFF AND PLTon BASOABS 59 cells/uL Normal 0-200 [facility] Comment on above: Order Comment: [facility] performed at: [employer] [facility], [address] [place] [address], [address] [place] [address], [phone], Seed Tester: Gopal Hamilton MD [facility] Date/Time: [id number] [facility] Results Received Date/Time: [facility] Reported Date/Time: Performed By: #### 9 68T, 65530U, %8293, 37718H, 6399, 496X #### [facility] Default [address] [place] [address] Basophils/100 WBC (Bld) 1.0 % Normal N [facility] Specialist Comment on above: Order Comment: [facility] performed at: [employer] [facility], [address] [facility], [address] [place] [address], [phone], Seed Tester: Gopal Hamilton MD [facility] Date/Time: [id number] [facility] Results Received Date/Time: [facility] Reported Date/Time: Performed By: #### 9 68T, 86063G, %8293, 48035X, 6399, 496X #### [facility] [address] [place] [address] EOSABS 171 cells/uL Normal 15-500 [facility] Manager Division Comment on above: Order Comment: [facility] performed at: [employer] [employer] [facility], [address] [facility], [address] [place] [address], [address] [place] [address], Seed Tester: Gopal Hamilton MD [facility] Date/Time: [facility] Results Received Date/Time: [facility] Reported Date/Time: Performed By: #### 9 68T, 83466B, %8293, 25065Q, 6399, 496X #### [facility] [address] [place] [address] Eosinophils/100 WBC (Bld) 2.9 % Normal [facility]ist Comment on above: Order Comment: [facility] performed at: [employer] [facility], [address] [place] [address], [address] [place] [address], [address] [place] [address], Seed Tester: Gopal Hamilton MD [facility] Date/Time: [facility] Results Received Date/Time: [facility] Reported Date/Time: Performed By: #### 9 68T, 78067T, %8293, 53484N, 6399, 496X #### [facility] [address] [place] [address] Erythrocyte distribution wid th (RBC) [Ratio] 12.9 % Normal 11.0-15.0 [facility] dical Specialist Comment on above: Order Comment: [facility] performed at: [employer] [facility], [address] , [address] [place] [address], [address] [place] [address], Seed Tester: Gopal Hamilton MD [facility] Date/Time: [facility] Results Received Date/Time: [facility] Reported Date/Time: Performed By: #### 9 68T, 57789M, %8293, 88473A, 6399, 496X #### [facility] [address] [place] [address] Hematocrit (Bld) [Volume fraction] 38.1 % Normal 35.0-45.0 [facility] Specialist Comment on above: Order Comment: [facility] performed at: [employer] [facility], [address] [facility], [address] [place] [address], [address] [place] [address], Seed Tester: Gopal Hamilton MD [facility] Date/Time: [facility] Results Received Date/Time: [facility] Reported Date/Time: Performed By: #### 9 68T, 25921C, %8293, 82284C, 6399, 496X #### [facility] [address] [place] [address] Hemoglobin (Bld) [Mass/Vol] 12.9 g/dL Normal 11.7-15. 5 [facility] Comment on above: Order Comment: [facility] performed at: [employer] [employer] [facility], [address] [facility], [address] [place] [address], [address] [place] [address], Seed Tester: Gopal Hamilton MD [facility] Date/Time: [facility] Results Received Date/Time: [facility] Reported Date/Time: Performed By: #### 9 68T, 92748R, %8293, 15016R, 6399, 496X #### [facility] [address] [place] [address] Lymphocytes (Bld) [#/Vol] 1.375 10*3/uL Normal 850-390 0 [facility] Comment on above: Order Comment: [facility] performed at: [employer] [employer] [facility], [address] , [address] [place] [address], [address] [place] [address], Seed Tester: Gopal Hamilton MD [facility] Date/Time: [facility] Results Received Date/Time: [facility] Reported Date/Time: Performed By: #### 9 68T, 48708J, %8293, 54725B, 6399, 496X #### [facility] [address] [place] [address] Lymphocytes/100 WBC (Bld) 23.3 % Normal [facility] Specialist Comment on above: Order Comment: [facility] performed at: [employer], [employer] [facility], [address] [place] [address], [address] [place] [address], [address] [place] [address], Seed Tester: Gopal Hamilton MD [facility] Date/Time: [facility] Results Received Date/Time: [facility] Reported Date/Time: Performed By: #### 9 68T, 87850A, %8293, 28502K, 6399, 496X #### [facility] [address] [place] [address] MCH (RBC) [Entitic mass] 30.0 pg Normal 27.0-33.0 [facility] Comment on above: Order Comment: [facility] performed at: [employer] [employer] [facility], [address] [place] [address], [address] [place] [address], [address] [place] [address], Seed Tester: Gopal Hamilton MD [facility] Date/Time: [facility] Results Received Date/Time: [facility] Reported Date/Time: Performed By: #### 9 68T, 17408X, %8293, 09444N, 6399, 496X #### [facility] [address] [place] [address] MCHC (RBC) [Mass/Vol] 33.9 g/dL Normal 32.0-36.0 [facility] Comment on above: Order Comment: [facility] performed at: [employer], [employer] [facility], [address] [place] [address], [address] [place] [address], [address] [place] [address], Seed Tester: Gopal Hamilton MD [facility] Date/Time: [facility] Results Received Date/Time: [facility] Reported Date/Time: Performed By: #### 9 68T, 86728J, %8293, 83751R, 6399, 496X #### [facility] [address] [place] [address] MCV (RBC) [Entitic vol] 88.6 fL Normal 80.0-100.0 [facility] Specialist Comment on above: Order Comment: [facility] performed at: [employer] [employer] [facility], [address] [facility], [address] [place] [address], [address] [place] [address], Seed Tester: Gopal Hamilton MD [facility] Date/Time: [facility] Results Received Date/Time: [facility] Reported Date/Time: Performed By: #### 9 68T, 19210Q, %8293, 38573R, 6399, 496X #### [facility] [address] [place] [address] MONOABS 460 cells/uL Normal 200-[address] [facility] Specialist Comment on above: Order Comment: [facility] performed at: [employer] [employer] [facility], [address], [address] [place] [address], [address] [place] [address], Seed Tester: Gopal Hamilton MD [facility] Date/Time: [facility] Results Received Date/Time: [facility] Reported Date/Time: Performed By: #### 9 68T, 93518Y, %8293, 75106S, 6399, 496X #### [facility] [address] [place] [address] Monocytes/100 WBC (Bld) 7.8 % Normal [facility] Specialist Comment on above: Order Comment: [facility] performed at: [employer] [facility], [address] , [address] [place] [address], [address] [place] [address], Seed Tester: Gopal Hamilton MD [facility] Date/Time: [facility] Results Received Date/Time: [facility] Reported Date/Time: Performed By: #### 9 68T, 10434F, %8293, 07909T, 6399, 496X #### [facility] [address] [place] [address] Neutrophils (Bld) [#/Vol] 3.835 10*3/uL Normal 1500-78 00 [facility] Comment on above: Order Comment: [facility] performed at: [employer] [employer] [facility], [address] , [address] [place] [address], [address] [place] [address], Seed Tester: Gopal Hamilton MD [facility] Date/Time: [facility] Results Received Date/Time: [facility] Reported Date/Time: Performed By: #### 9 68T, 93113C, %8293, 42739H, 6399, 496X #### [facility] [address] [place] [address] Neutrophils/100 WBC (Bld) 65 % Normal [facility] Specialist Comment on above: Order Comment: [facility] performed at: [employer] [employer] [facility], [address] , [address] [place] [address], [address] [place] [address], Seed Tester: Gopal Hamilton MD [facility] Date/Time: [facility] Results Received Date/Time: [facility] Reported Date/Time: Performed By: #### 9 68T, 57277F, %8293, 42384N, 6399, 496X #### [facility] [address] [place] [address] Platelet mean volume (Bld) [Entitic vol] 9.3 fL Normal 7.5-12.5 [facility] Specialist Comment on above: Order Comment: [facility] performed at: [employer] [employer] [facility], [address] , [address] [place] [address], [phone], Seed Tester: Gopal Hamilton MD [facility] Date/Time: [facility] Results Received Date/Time: [facility] Reported Date/Time: Performed By: #### 9 68T, 68464N, %8293, 87394N, 6399, 496X #### [facility] [address] [place] [address] Platelets (Bld) [#/Vol] 409 10*3/uL High 140-400 [facility] Comment on above: Order Comment: [facility] performed at: [employer] [facility], [address] , [address] [place] [address], [phone], Seed Tester: Gopal Hamilton MD [facility] Date/Time: [facility] Results Received Date/Time: [facility] Reported Date/Time: Performed By: #### 9 68T, 07571T, %8293, 30095X, 6399, 496X #### [facility] [address] [place] [address] RBC (Bld) [#/Vol] 4.30 10*6/uL Normal 3.80-5.10 [facility] Comment on above: Order Comment: [facility] performed at: [employer] [employer] [facility], [address] , [address] [place] [address], [phone], Seed Tester: Gopal Hamilton MD [facility] Date/Time: [facility] Results Received Date/Time: [facility] Reported Date/Time: Performed By: #### 9 68T, 50649I, %8293, 20246C, 6399, 496X #### [facility] [address] [place] [address] WBC (Bld) [#/Vol] 5.9 10*3/uL Normal 3.8-10.8 [facility] Comment on above: Order Comment: [facility] performed at: [employer] [employer] [facility], [address] , [address] [place] [address], [address] [place] [address], Seed Tester: Gopal Hamilton MD [facility] Date/Time: [facility] Results Received Date/Time: [facility] Reported Date/Time: Performed By: #### 9 68T, 16932E, %8293, 16440A, 6399, 496X #### [facility] [address] [place] [address] Q - COMPREHENSIVE METABOLIC PANEL W/EGFRon 03-10-2022 Albumin [Mass/Vol] 4.3 g/dL Normal 3.6-5.1 [facility] Specialist Comment on above: Order Comment: [facility] performed at: [employer] [facility], [address] [place] [address], [address] [place] [address], [address] [place] [address], Seed Tester: Gopal Hamilton MD [facility] Date/Time: [facility] Results Received Date/Time: [facility] Reported Date/Time: Performed By: #### 9 68T, 33267V, %8293, 42227N, 6399, 496X #### [facility] [address] [place] [address] Albumin/Globulin [Mass ratio] 1.7 {ratio} Normal 1.0-2 .5 [facility] Specialist Comment on above: Order Comment: [facility] performed at: [employer] [facility], [address] [place] [address], [address] [place] [address], [address] [place] [address], Seed Tester: Gopal Hamilton MD [facility] Date/Time: [facility] Results Received Date/Time: [facility] Reported Date/Time: Performed By: #### 9 68T, 03409P, %8293, 35292Y, 6399, 496X #### [facility] [address] [place] [address] ALP [Catalytic activity/Vol] 134 U/L High 31-125 [facility] Comment on above: Order Comment: [facility] performed at: [employer] [facility], [address] [facility], [address] [place] [address], [address] [place] [address], Seed Tester: Gopal Hamilton MD [facility] Date/Time: [facility] Results Received Date/Time: [facility] Reported Date/Time: Performed By: #### 9 68T, 90250L, %8293, 28058I, 6399, 496X #### [facility] [address] [place] [address] ALT [Catalytic activity/Vol] 41 U/L High 6-29 [facility] Comment on above: Order Comment: [facility] performed at: [employer] [facility], [address] [place] [address], [address] [place] [address], [address] [place] [address], Seed Tester: Gopal Hamilton MD [facility] Date/Time: [facility] Results Received Date/Time: [facility] Reported Date/Time: Performed By: #### 9 68T, 41600J, %8293, 95472M, 6399, 496X #### [facility] [address] [place] [address] AST [Catalytic activity/Vol] 33 U/L Normal 10-35 [facility] Comment on above: Order Comment: [facility] performed at: [employer] [facility], [address] [place] [address], [address] [place] [address], [address] [place] [address], Seed Tester: Gopal Hamilton MD [facility] Date/Time: [facility] Results Received Date/Time: [facility] Reported Date/Time: Performed By: #### 9 68T, 35150B, %8293, 96575E, 6399, 496X #### [facility] [address] [place] [address] BUN/CREA 17 NOT APPLICABLE Normal 6-22 [facility] Comment on above: Order Comment: [facility] performed at: [employer] [employer] [facility], [address] [place] [address], [address] [place] [address], [address] [place] [address], Seed Tester: Gopal Hamilton MD [facility] Date/Time: [facility] Results Received Date/Time: [facility] Reported Date/Time: Performed By: #### 9 68T, 93203D, %8293, 96916Y, 6399, 496X #### [facility] Default [address] [place] [address] Calcium [Mass/Vol] 9.6 mg/dL Normal 8.6-10.2 [facility] Specialist Comment on above: Order Comment: [facility] Testing performed at: [place] [employer], [employer] [facility], [address] [place] [address], [address] [place] [address], [address] [place] [address], Seed Tester: Gopal Hamilton MD [facility] Date/Time: [facility] Results Received Date/Time: [facility] Reported Date/Time: Performed By: #### 9 68T, 56756S, %8293, 36243Q, 6399, 496X #### [facility] Default [address] [place] [address] Chloride [Moles/Vol] 103 mmol/L Normal 98-110 [facility] Comment on above: Order Comment: [facility] Testing performed at: [employer] [facility], [address] [place] [address], [address] [place] [address], [address] [place] [address], Seed Tester: Gopal Hamilton MD [facility] Date/Time: [facility] Results Received Date/Time: [facility] Reported Date/Time: Performed By: #### 9 68T, 94611F, %8293, 25707D, 6399, 496X #### [facility] Default [address] [place] [address] CO2 [Moles/Vol] 27 mmol/L Normal 20-32 [facility] Comment on above: Order Comment: [facility] Testing performed at: [employer] [facility], [address] [place] [address], [address] [place] [address], [address] [place] [address], Seed Tester: Gopal Hamilton MD [facility] Date/Time: [facility] Results Received Date/Time: [facility] Reported Date/Time: Performed By: #### 9 68T, 85098L, %8293, 65254W, 6399, 496X #### [facility] Default [address] [place] [address] Creatinine [Mass/Vol] 0.65 mg/dL Normal 0.50-1.10 [facility] Manager Division Comment on above: Order Comment: [facility] Testing performed at: [email or web address], [employer] [facility], [address] [place] [address], [address] [place] [address], [address] [place] [address], Seed Tester: Gopal Hamilton MD [facility] Date/Time: [facility] Results Received Date/Time: [facility] Reported Date/Time: Performed By: #### 9 68T, 39251D, %8293, 46880Q, 6399, 496X #### [facility] Default [address] [place] [address] eGFRAA ([facility]) 121 mL/min/1.73m2 Normal > OR = 60 [facility] Manager Division Comment on above: Order Comment: [facility] Testing performed at: [facility], [employer] [facility], [address] [place] [address], [address] [place] [address], [address] [place] [address], Seed Tester: Gopal Hamilton MD [facility] Date/Time: [facility] Results Received Date/Time: [facility] Reported Date/Time: Performed By: #### 9 68T, 92717D, %8293, 54157Y, 6399, 496X #### [facility] Default [address] [place] [address] eGFRNAA ([facility]) 104 mL/min/1.73m2 Normal > OR = 60 No rthern [place] Manager Division Comment on above: Order Comment: [facility] Testing performed at: [email or web address], [employer] [facility], [address] [place] [address], [address] [place] [address], [address] [place] [address], Seed Tester: Gopal Hamilton MD [facility] Date/Time: [facility] Results Received Date/Time: [facility] Reported Date/Time: Performed By: #### 9 68T, 42368H, %8293, 37226O, 6399, 496X #### [facility] Default [address] [place] [address] Globulin (S) [Mass/Vol] 2.5 g/dL Normal 1.9-3.7 [facility] [place] [facility] Comment on above: Order Comment: [facility] Testing performed at: [email or web address], [employer] [facility], [address] [place] [address], [address] [place] [address], [address] [place] [address], Seed Tester: Gopal Hamilton MD [facility] Date/Time: [facility] Results Received Date/Time: [facility] Reported Date/Time: Performed By: #### 9 68T, 01160G, %8293, 67978W, 6399, 496X #### [facility] Default [address] [place] [address] Glucose [Mass/Vol] 94 mg/dL Normal 65-99 [facility] Comment on above: Order Comment: [facility] Testing performed at: [employer], [employer] [facility], [address] [place] [address], [address] [place] [address], [address] [place] [address], Seed Tester: Gopal Hamilton MD [facility] Date/Time: [facility] Results Received Date/Time: [facility] Reported Date/Time: Result Comment: Fasting reference interval Performed By: #### 9 68T, 04344T, %8293, 48942Z, 6399, 496X #### [facility] Default [address] [place] [address] Potassium [Moles/Vol] 4.4 mmol/L Normal 3.5-5.3 Venita larson [place] Manager Division Comment on above: Order Comment: [facility] Testing performed at: [employer], [employer] [facility], [address] , [address] [place] [address], [address] [place] [address], Seed Tester: Gopal Hamilton MD [facility] Date/Time: [facility] Results Received Date/Time: [facility] Reported Date/Time: Performed By: #### 9 68T, 89891U, %8293, 14667D, 6399, 496X #### [facility] Default [address] [place] [address] Protein [Mass/Vol] 6.8 g/dL Normal 6.1-8.1 Jay gambino [place] Manager Division Comment on above: Order Comment: [facility] Testing performed at: [employer], [employer] [facility], [address] , [address] [place] [address], [address] [place] [address], Seed Tester: Gopal Hamilton MD [facility] Date/Time: [facility] Results Received Date/Time: [facility] Reported Date/Time: Performed By: #### 9 68T, 10450T, %8293, 76223U, 6399, 496X #### [facility] Default [address] [place] [address] Sodium [Moles/Vol] 138 mmol/L Normal 135-146 Jay gambino [place] Manager Division Comment on above: Order Comment: [facility] performed at: [employer], [employer] [facility], [address] , [address] [place] [address], [address] [place] [address], Seed Tester: Gopal Hamilton MD [facility] Date/Time: [facility] Results Received Date/Time: [facility] Reported Date/Time: Performed By: #### 9 68T, 57444N, %8293, 33561B, 6399, 496X #### [facility] Default [address] [place] [address] TBIL <0.3 Normal 0.2-1.2 [facility] Manager [facility] Comment on above: Order Comment: [facility] Testing performed at: [employer], [employer] [facility], [address] [place] [address], [address] [place] [address], [address] [place] [address], Seed Tester: Gopal Hamilton MD [facility] Collection Date/Time: [facility] Results Received Date/Time: [facility] Reported Date/Time: Performed By: #### 9 68T, 36440V, %8293, 91235X, 6399, 496X #### [facility] Default [address] [place] [address] Urea nitrogen [Mass/Vol] 11 mg/dL Normal 7-25 [facility] Comment on above: Order Comment: [facility] Testing performed at: [employer], [employer] [facility], [address] [facility], [address] [place] [address], [address] [place] [address], Seed Tester: Gopal Hamilton MD [facility] Date/Time: [facility] Results Received Date/Time: [facility] Reported Date/Time: Performed By: #### 9 68T, 20066H, %8293, 81940H, 6399, 496X #### [facility] Default [address] [place] [address] Q - DLDL REFLEXon 03-10-2022 Cholesterol in LDL [Mass/Vol] 87 mg/dL Normal <100 [facility] Comment on above: Order Comment: [facility] Testing performed at: [employer], [employer] [facility], [address] [facility], [address] [place] [address], [address] [place] [address], Seed Tester: Gopal Hamilton MD [facility] Date/Time: [facility] Results Received Date/Time: [facility] Reported Date/Time: Result Comment: Desirable range <100 mg/dL for primary prevention; <70 mg/dL for patients with CHD or diabetic patients with > or = 2 CHD risk factors. Performed By: #### 9 68T, 04837F, %8293, 72335C, 6399, 496X #### [facility] Default [address] [place] [address] Q - HEMOGLOBIN A1Con HEMOGLOBIN A1c 5.0 % of total Hgb Normal <5.7 No rthern [place] Manager Division Comment on above: Order Comment: [facility] performed at: [email or web address], [employer] [facility], [address] , [address] [place] [address], [id number], Seed Tester: Gopal Hamilton MD [facility] Date/Time: [facility] Results Received Date/Time: [facility] Reported Date/Time: Result Comment: For the purpose of screening for the presence of diabetes: <5.7% Consistent with the absence of diabetes 5.7-6.4% Consistent with increased risk for diabetes (prediabetes) > or =6.5% Consistent with diabetes This assay result is consistent with a decreased risk of diabetes. Currently, no consensus exists regarding use of hemoglobin A1c for diagnosis of diabetes in children. According to [place] Diabetes Association (ADA) guidelines, hemoglobin A1c <7.0% represents optimal control in non- diabetic patients. Different metrics may apply to specific patient populations. Standards of Medical Care in Diabetes(ADA). Performed By: #### 9 68T, 27512K, %8293, 45424N, 6399, 496X #### [facility] Default [address] [place] [address] Q - Lipid Panelon 03-10-2022 Cholesterol [Mass/Vol] 230 mg/dL High <200 No rthern [place] Manager Division Comment on above: Order Comment: [facility] performed at: [employer] [facility], [address] , [address] [place], [address], Seed Tester: Gopal Hamilton MD [facility] Date/Time: [facility] Results Received Date/Time: [facility] Reported Date/Time: Performed By: #### 9 68T, 81659C, %8293, 93879E, 6399, 496X #### [facility] Default [address] [place] [address] Cholesterol in HDL [Mass/Vol] 52 mg/dL Normal > OR = 50 [facility] Manager [facility] Comment on above: Order Comment: [facility] Testing performed at: [employer], [employer] [facility], [address] [facility], [address] [place] [address], [address] [place] [address], Seed Tester: Gopal Hamilton MD [facility] Date/Time: [facility] Results Received Date/Time: [facility] Reported Date/Time: Performed By: #### 9 68T, 64299O, %8293, 47917H, 6399, 496X #### [facility] Default [address] [place] [address] Cholesterol.total/Cholestero l in HDL [Mass ratio] 4.4 {ratio} Normal <5.0 [facility] Specialist Comment on above: Order Comment: [facility] Testing performed at: [employer], [employer] [facility], [address] [facility], [address] [place] [address], [address] [place] [address], Seed Tester: Gopal Hamilton MD [facility] Collection Date/Time: [facility] Results Received Date/Time: [facility] Reported Date/Time: Performed By: #### 9 68T, 15471Y, %8293, 09654K, 6399, 496X #### [facility] Default [address] [place] [address] LDLD SEE NOTE Normal [facility] Comment on above: Order Comment: [facility] Testing performed at: [employer], [employer] [facility], [address] , [address] [place] [address], [address] [place] [address], Seed Tester: Gopal Hamilton MD [facility] Date/Time: [facility] Results Received Date/Time: [facility] Reported Date/Time: Result Comment: LDL cholesterol not calculated. Triglyceride levels greater than 400 mg/dL invalidate calculated LDL results. Reference range: <100 Desirable range <100 mg/dL for primary prevention; <70 mg/dL for patients with CHD or diabetic patients with > or = 2 CHD risk factors. LDL-C is now calculated using the Brant calculation, which is a validated novel method providing better accuracy than the Friedewald equation in the estimation of LDL-C. Estevan SCHILLING et al. ZANA. 2013;310(19): 1091-0405 (http://education.Victiv/faq/NVK374) Performed By: #### 9 68T, 33526C, %8293, 13049N, 6399, 496X #### [facility] Default [address] [place] [address] NON HDL CHOLESTEROL 178 mg/dL (calc) High <130 [facility] Comment on above: Order Comment: [facility] Testing performed at: [employer] [facility], [address] [facility], [address] [place] [address], [phone], Seed Tester: Gopal Hamilton MD [facility] Date/Time: [facility] Results Received Date/Time: [facility] Reported Date/Time: Result Comment: For patients with diabetes plus 1 major ASCVD risk factor, treating to a non-HDL-C goal of <100 mg/dL (LDL-C of <70 mg/dL) is considered a therapeutic option. Performed By: #### 9 68T, 88888V, %8293, 07214O, 6399, 496X #### [facility] Default [address] [place] [address] Triglyceride [Mass/Vol] 410 mg/dL High <150 [facility] Comment on above: Order Comment: [facility] Testing performed at: [employer] [facility], [address] [place] [address], [address] [place] [address], [phone], Seed Tester: Gopal Hamilton MD [facility] Date/Time: [facility] Results Received Date/Time: [facility] Reported Date/Time: Result Comment: If a non-fasting specimen was collected, consider repeat triglyceride testing on a fasting specimen if clinically indicated. João et al. J. of Clin. Lipidol. 2015;9:129-169. Performed By: #### 9 68T, 26427R, %8293, 06476M, 6399, 496X #### [facility] Default [address] [place] [address] Q - TROPONIN Ion 03-10-2022 TROPONIN I 3 ng/L Normal < OR = 47 [facility] Manager Division Comment on above: Order Comment: [facility] Testing performed at: [facility], [address] [facility], [address] [place] [address], [phone], Seed Tester: Gopal Hamilton MD [facility] Date/Time: [facility] Results Received Date/Time: [facility] Reported Date/Time: Result Comment: In accord with published recommendations, serial testing of troponin I at intervals of 2 to 4 hours for up to 12 to 24 hours is suggested in order to corroborate a single troponin I result. An elevated troponin alone is not sufficient to make the diagnosis of [place]. Performed By: #### 9 68T, 20212X, %8293, 25626X, 6399, 496X #### [facility] Default [address] [place] [address] UA DIP, URINE (POC)on 2021 BILIRUBIN UA (POCT) Negative Negative [facility] CLARITY UA (POCT) Clear [facility] COLOR UA (POCT) Yellow [facility] GLUCOSE UA (POCT) Negative Negative mg/dL [facility] HEMOGLOBIN/BLOOD UA (POCT) Negative Negative [facility] KETONE UA (POCT) Negative Negative mg/dL [facility] LEUKOCYTES UA (POCT) Negative Negative [facility] NITRITE UA (POCT) Negative Negative [facility] PH UA (POCT) 5.0 4.5 - 8.0 [facility] inic Protein Ql (U) Trace Abnormal Negative mg/dL [facility] SPECIFIC GRAVITY UA (POCT) >=1.030 1.005 - 1 .030 [facility] UROBILINOGEN UA (POCT) 0.2 E.U./dL Normal E.U./ dL [facility] CNTHERAPYon 01-31-2022 CNTHERAPY OT/PT/Speech Visit ( PTLHO) MARY LEAL ([id number]) 1970 F Date Time Provider Department 01/31/22 10:30 AM NEWTON WOODWARD Date Time Provider Department [place] 01/31/2022 10:30 AM [id number], JILL PTKALEIGH [facility] Reason for Visit: Physical Therapy [503] Primary Visit Diagnosis:Pelvic floor dysfunction [M62.89] Other Visit Diagnoses:Lack of coordination [R27.9] Follow-up examination after colorectal surgery [Z09] Allergies As of Date: 01/31/2022 Noted Allergy Reaction RISPERIDONE 07/27/2021 5 - Intolerance Comments: Breast discharge Date Reviewed: 01/04/2022 Reviewed by: Mary Obrien MD - Fully Assessed Prescriptions as of 01/31/2022 - nitrofurantoin monohydrate and macrocrystal (MACROBID) 100 mg capsule Take 1 capsule by mouth twice daily. - MOTEGRITY 2 mg tab tablet take 1 tablet by mouth once daily - metroNIDAZOLE (FLAGYL) 500 mg tablet Take 1 tablet by mouth twice daily. for vaginosis. Do not drink alcohol while taking this medication - acetaminophen (TYLENOL EXTRA STRENGTH) 500 mg tablet Take 2 tablets by mouth every 6 hours as needed for pain. - ibuprofen (MOTRIN) 200 mg tablet Take 1-2 tablets by mouth every 4 hours as needed for pain. - lactobacillus rhamnosus (CULTURELLE) 10 billion cell capsule Take 1 capsule by mouth once daily. - psyllium Husk (METAMUCIL) 0.52 gram capsule Take 1 capsule by mouth as directed. As needed for constipation - polyethylene glycol 3350 (MIRALAX) 17 gram/dose powder Take 17 g by mouth as directed. Dissolve dose in 4 - 8 ounces of liquid and take as directed. - oxyCODONE IR (ROXICODONE) 5 mg immediate release tablet Take 1 tablet by mouth every 6 hours as needed for pain. - vortioxetine (TRINTELLIX) 10 mg tablet Take 10 mg by mouth once daily. - clonazePAM (KLONOPIN) 1 mg tablet Take 0.5 mg by mouth twice daily. - fluticasone (FLONASE) 50 mcg/actuation nasal spray Use 1 Morrison in each nostril once daily. - carBAMazepine XR (TEGRETOL XR) 400 mg 12 hr tablet Take 400 mg by mouth q 12 HR. - rOPINIRole (REQUIP) 2 mg tablet Take 2 mg by mouth twice daily. Takes 2 mg in the AM and 4 mg PM - ARIPiprazole (ABILIFY) 30 mg tablet Take 30 mg by mouth once daily. - albuterol HFA (PROVENTIL HFA, VENTOLIN HFA) 90 mcg/actuation inhaler inhale 2 puffs by mouth INTO THE LUNGS every 4 hours if needed - DEXILANT 60 mg CpDM take 1 capsule by mouth every morning BEFORE BREAKFAST - hsgpevwztkh-edypwzbza-qistgsrp (TRELEGY ELLIPTA) 100-62.5-25 mcg Inhale 1 Puff as instructed once daily. - atenolol (TENORMIN) 50 mg tablet Take 50 mg by mouth once daily. [facility] CNTHERAPYon 01-24-2022 CNTHERAPY OT/PT/Speech Visit ( PTLHO) MARY LEAL ([id number]) 1970 F Date Time Provider Department 01/24/22 10:30 AM NEWTON WOODWARD PTLHO Date Time Provider Department Center 01/24/2022 10:30 AM [id number], JILL [facility] Reason for Visit: Physical Therapy [503] Primary Visit Diagnosis:Pelvic floor dysfunction [M62.89] Other Visit Diagnoses:Lack of coordination [R27.9] Follow-up examination after colorectal surgery [Z09] Allergies As of Date: 01/24/2022 Noted Allergy Reaction RISPERIDONE 07/27/2021 5 - Intolerance Comments: Breast discharge Date Reviewed: 01/04/2022 Reviewed by: Mary Obrien MD - Fully Assessed Prescriptions as of 01/24/2022 - nitrofurantoin monohydrate and macrocrystal (MACROBID) 100 mg capsule Take 1 capsule by mouth twice daily. - MOTEGRITY 2 mg tab tablet take 1 tablet by mouth once daily - metroNIDAZOLE (FLAGYL) 500 mg tablet Take 1 tablet by mouth twice daily. for vaginosis. Do not drink alcohol while taking this medication - acetaminophen (TYLENOL EXTRA STRENGTH) 500 mg tablet Take 2 tablets by mouth every 6 hours as needed for pain. - ibuprofen (MOTRIN) 200 mg tablet Take 1-2 tablets by mouth every 4 hours as needed for pain. - famotidine (PEPCID) 20 mg tablet Take 1 tablet by mouth once daily. Take once a day while taking ibuprofen - lactobacillus rhamnosus (CULTURELLE) 10 billion cell capsule Take 1 capsule by mouth once daily. - psyllium Husk (METAMUCIL) 0.52 gram capsule Take 1 capsule by mouth as directed. As needed for constipation - polyethylene glycol 3350 (MIRALAX) 17 gram/dose powder Take 17 g by mouth as directed. Dissolve dose in 4 - 8 ounces of liquid and take as directed. - oxyCODONE IR (ROXICODONE) 5 mg immediate release tablet Take 1 tablet by mouth every 6 hours as needed for pain. - vortioxetine (TRINTELLIX) 10 mg tablet Take 10 mg by mouth once daily. - clonazePAM (KLONOPIN) 1 mg tablet Take 0.5 mg by mouth twice daily. - fluticasone (FLONASE) 50 mcg/actuation nasal spray Use 1 Morrison in each nostril once daily. - carBAMazepine XR (TEGRETOL XR) 400 mg 12 hr tablet Take 400 mg by mouth q 12 HR. - rOPINIRole (REQUIP) 2 mg tablet Take 2 mg by mouth twice daily. Takes 2 mg in the AM and 4 mg PM - ARIPiprazole (ABILIFY) 30 mg tablet Take 30 mg by mouth once daily. - albuterol HFA (PROVENTIL HFA, VENTOLIN HFA) 90 mcg/actuation inhaler inhale 2 puffs by mouth INTO THE LUNGS every 4 hours if needed - DEXILANT 60 mg CpDM take 1 capsule by mouth every morning BEFORE BREAKFAST - rfbwjgwymrs-jmmozshkj-fujjqtnw (TRELEGY ELLIPTA) 100-62.5-25 mcg Inhale 1 Puff as instructed once daily. - atenolol (TENORMIN) 50 mg tablet Take 50 mg by mouth once daily. [facility] CNTHERAPYon 01-18-2022 CNTHERAPY OT/PT/Speech Visit ( PTLHO) MARY LEAL ([id number]) 1970 F Date Time Provider Department 01/18/22 12:15 PM JESSI ISAACS PTLSAVANNAH Date Time Provider Department Center 01/18/2022 12:15 PM [id number], KATHRYN PTLHO [facility] Reason for Visit: PT Eval [747] Primary Visit Diagnosis:Lack of coordination [R27.9] Other Visit Diagnoses:Follow-up examination after colorectal surgery [Z09] Pelvic floor dysfunction [M62.89] Allergies As of Date: 01/18/2022 Noted Allergy Reaction RISPERIDONE 07/27/2021 5 - Intolerance Comments: Breast discharge Date Reviewed: 01/04/2022 Reviewed by: Mary Obrien MD - Fully Assessed Prescriptions as of 01/24/2022 - nitrofurantoin monohydrate and macrocrystal (MACROBID) 100 mg capsule Take 1 capsule by mouth twice daily. - MOTEGRITY 2 mg tab tablet take 1 tablet by mouth once daily - metroNIDAZOLE (FLAGYL) 500 mg tablet Take 1 tablet by mouth twice daily. for vaginosis. Do not drink alcohol while taking this medication - acetaminophen (TYLENOL EXTRA STRENGTH) 500 mg tablet Take 2 tablets by mouth every 6 hours as needed for pain. - ibuprofen (MOTRIN) 200 mg tablet Take 1-2 tablets by mouth every 4 hours as needed for pain. - famotidine (PEPCID) 20 mg tablet Take 1 tablet by mouth once daily. Take once a day while taking ibuprofen - lactobacillus rhamnosus (CULTURELLE) 10 billion cell capsule Take 1 capsule by mouth once daily. - psyllium Husk (METAMUCIL) 0.52 gram capsule Take 1 capsule by mouth as directed. As needed for constipation - polyethylene glycol 3350 (MIRALAX) 17 gram/dose powder Take 17 g by mouth as directed. Dissolve dose in 4 - 8 ounces of liquid and take as directed. - oxyCODONE IR (ROXICODONE) 5 mg immediate release tablet Take 1 tablet by mouth every 6 hours as needed for pain. - vortioxetine (TRINTELLIX) 10 mg tablet Take 10 mg by mouth once daily. - clonazePAM (KLONOPIN) 1 mg tablet Take 0.5 mg by mouth twice daily. - fluticasone (FLONASE) 50 mcg/actuation nasal spray Use 1 Morrison in each nostril once daily. - carBAMazepine XR (TEGRETOL XR) 400 mg 12 hr tablet Take 400 mg by mouth q 12 HR. - rOPINIRole (REQUIP) 2 mg tablet Take 2 mg by mouth twice daily. Takes 2 mg in the AM and 4 mg PM - ARIPiprazole (ABILIFY) 30 mg tablet Take 30 mg by mouth once daily. - albuterol HFA (PROVENTIL HFA, VENTOLIN HFA) 90 mcg/actuation inhaler inhale 2 puffs by mouth INTO THE LUNGS every 4 hours if needed - DEXILANT 60 mg CpDM take 1 capsule by mouth every morning BEFORE BREAKFAST - kfrhvrjyvdy-xkwglinwy-brfcdoku (TRELEGY ELLIPTA) 100-62.5-25 mcg Inhale 1 Puff as instructed once daily. - atenolol (TENORMIN) 50 mg tablet Take 50 mg by mouth once daily. Letter Text [facility] 12-27-2021 [facility] ID: [id number] Author: Sonido Owen MD Service: Colorectal Author Type: Resident Type: Discharge Summary Filed: 12/27/2021 3:55 PM Note Text: Attestation signed by Mary Obrien MD at 12/29/2021 4:11 PM [facility] STAFF PHYSICIAN NOTE OF PERSONAL INVOLVEMENT IN CARE I have reviewed the discharge summary documented by the resident and I personally participated in the tejada components. I have confirmed and edited as necessary, the PFSH and ROS obtained by others. I have discussed the case and management of the patient's care. Mary Obrien MD Date of Service: December 29, 2021 DISCHARGE SUMMARY PATIENT NAME: Mary Leal ADMISSION DATE: 12/24/2021 DISCHARGE DATE: 12/27/2021 ATTENDING PHYSICIAN: Mary Obrien MD Code Status: Not on file Highest Readmission Risk Score: 13 The 30 day readmissions risk score is derived from an internally validated risk model which evaluates patient level characteristics, utilization history, medication orders and lab results up until the day of discharge. Patients with a score of 40 or above are considered highest risk for readmission. Specific patient level drivers will be listed at the bottom of the summary. CONSULTING TEAMS DURING HOSPITALIZATION: None Treatment Team: Attending Provider: Mary Obrien MD REASON FOR HOSPITALIZATION: Pelvic floor dysfunction DIAGNOSIS: Active Problems: Pelvic floor dysfunction POA: Yes Resolved Problems: * No resolved hospital problems. * Sepsis Ruled Out OPERATIONS DURING HOSPITALIZATION: Laparoscopic proctopexy and diverting loop ileostomy PROCEDURES DURING HOSPITALIZATION: Intubation HOSPITAL COURSE: Mary Leal is a 51 year old female who was seen in clinic for pelvic floor dysfunction. The patient was admitted on the day of surgery. Informed consent was obtained, and the patient was taken to the OR. The aforementioned procedure above was performed with no complications. The patient made an uneventful recovery in the PACU and was transferred to the [facility]. Postoperatively, the patient recovered well. Her diet was advanced as she tolerated. Her pain was initially controlled with IV pain medications and transitioned to oral pain medications. Her ostomy was functioning, and she received ostomy teaching. On the day of discharge, the patient was able to void freely, had return of bowel function, was able to ambulate, and had good pain control. The patient was able to tolerate a diet and was stable for discharge on 12/27 with plans for outpatient follow up. Transitions of Care Critical Issues: None LABS AND PROCEDURES PENDING AT DISCHARGE: No pending results. PATIENT CONDITION AT DISCHARGE: Stable DISCHARGE DISPOSITION: Home with Home Health INFORMATION PROVIDED TO PATIENT: See discharge instructions WOUND/SURGICAL SITE CARE: See discharge instructions DIET: See discharge instructions ACTIVITY: See discharge instructions ALLERGIES Allergen Reactions - Risperidone Intolerance Breast discharge DISCHARGE MEDICATION: Current Discharge Medication List START taking these medications acetaminophen (TYLENOL) 1,000 mg Take 1,000 mg by mouth every 6 hours as needed for pain. ibuprofen (MOTRIN) 200-400 mg Take 200-400 mg by mouth every 4 hours as needed for pain. famotidine (PEPCID) 20 mg Take 20 mg by mouth once daily. Take once a day while taking ibuprofen Qty: 30 tablet Refills: 0 lactobacillus rhamnosus (CULTURELLE) 1 capsule Take 1 capsule by mouth once daily. Qty: 30 capsule Refills: 0 psyllium Husk 0.52 g Take 0.52 g by mouth as directed. As needed for constipation polyethylene glycol 3350 (MIRALAX, GLYCOLAX) 17 g Take 17 g by mouth as directed. Dissolve dose in 4 - 8 ounces of liquid and take as directed. oxyCODONE IR (ROXICODONE) 5 mg Take 5 mg by mouth every 6 hours as needed for pain. Qty: 28 tablet Refills: 0 Associated Diagnoses:Postoperative pain CONTINUE these medications which have NOT CHANGED vortioxetine (TRINTELLIX) 10 mg Take 10 mg by mouth once daily. clonazePAM (KlonoPIN) 0.5 mg Take 0.5 mg by mouth twice daily. carBAMazepine XR (TEGretol XR) 400 mg Take 400 mg by mouth q 12 HR. rOPINIRole (REQUIP) 2 mg Take 2 mg by mouth twice daily. Takes 2 mg in the AM and 4 mg PM ARIPiprazole (ABILIFY) 30 mg Take 30 mg by mouth once daily. DEXILANT 60 mg CpDM take 1 capsule by mouth every morning BEFORE BREAKFAST Qty: 30 capsule Refills: 3 Associated Diagnoses:Gastroesophageal reflux disease, unspecified whether esophagitis present TRELEGY ELLIPTA 1 Puff Inhale 1 Puff as instructed once daily. prucalopride (MOTEGRITY) 2 mg Take 2 mg by mouth once daily. Qty: 30 tablet Refills: 6 Associated Diagnoses:Chronic idiopathic constipation atenolol (TENORMIN) 50 mg Finesse (more content not included)... Normal [facility] CONSULTon 12-27-2021 CONSULT HNO ID: [id number] Author: Trini Hines RN Service: Wound/Ostomy Author Type: Registered Nurse Type: Consults Filed: 12/27/2021 3:32 PM Note Text: STOMA CARE POST-OPERATIVE ASSESSMENT AND PATIENT EDUCATION Patient Name: Mary Leal Date: December 27, 2021 Time: 3:20 PM ET Care Outcome: Ms. Leal was seen today on the [facility] for ostomy education and a pouch change lesson. ET's Next Scheduled Visit: Complete. STOMA ASSESSMENT Stoma type: Loop ileostomy Diameter: 35 mm with and extra 1 mm cut on the medial side of the pouch. Location: RLQ Protrusion: Budded, Os points downward Mucosal condition and color: Red and [place] and moist. Boni: No Mucocutaneous Junction: Intact Output: Yes: Flatus and Effluent Peristomal Skin: Clear and intact and Other: Under the stoma from 3-9 the skin appeared moist with very small bumps, most likely from friction. Stoma powder applied. Location of Skin Impairment: NA Treatment of Skin Impairment: NA Supportive Tissue: Semisoft and appropriately distended. Small creased noted at 3 o'clock. Pouching System: Coloplast Sensura one piece cut to fit drainable pouch (#[id number]) and Coloplast Brava moldable ring (2mm) #[id number]. Brava barrier strips, product # [id number] applied around the border of the pouch. INCISION Degree of approximation: 100% Approximating devices: Surgical Glue Drainage: None Method of Management: FLATWORK FEEDER Time Increment: 45 minutes Comments: NA Supplies Given: Yes: Discharge supplies provided. Patient given graduate and IANDO sheet and she was instructed to record her output while at home. PATIENT EDUCATION Ostomy Education READINESS TO LEARN Cognitive Ability: Alert and oriented Motivation to Learn: Interested Family Support: Unable to assess - Family not present Instruction Provided To: Patient Patient Learns Best By: Multiple Methods Factors Affecting Learning: None Physical Limitations Affecting Learning: Fatigue and Other Limitations The patient was trying hard to keep her eyes open during the teaching lesson. LEARNING RESPONSE Method of Instruction: Individual instruction Written instruction - handouts Verbal instruction Demonstration-Hands on Learning Instructional Aids Used: Hand-out(s) Patient/Family Response: Verbalizes understanding of: how to empty the pouch. She was instructed to empty the pouch when it is half full. She also verbalized understanding of changing the ostomy pouch every 3 days. Although she did not participate in this pouch change process, she voiced readiness to learn and understood it would take some time and would need more practice. FOLLOW-UP PLAN: Complete Supplemental Material Provided to Patient: Patient Education print outs: Referral Recommendation: Home Health Agency SIGNATURE: Trini FRIEDMANN RN COCN CWCN This is an electronically created document. IF PRINTED, PLEASE DO NOT REMOVE FROM THE CHART OR MODIFY PRINTED COPY. Normal [facility] NURSING PROGon 12-27-2021 NURSING PROG HNO ID: [id number] Author: Marizol Hankins RN Service: ? Author Type: Registered Nurse Type: Nursing Progress Note Filed: 12/27/2021 4:39 PM Note Text: Nursing Progress Note Patient Name: Mary Leal Patient Location: [id number] Daily Note: Pt AANDO x 3. Lap site ELENI with glue, no drainage. Pt on GI soft diet, tolerating well. Ostomy drainage is soft brown. Pt up with 1 assist to BSC. Encouraged proper hydration of water, not pop or juices. Educated pt on importance of using IS and was independently completing the task while in the room. Pt showered with assistance from staff. 1350: Pt lost IV access post shower, spoke directly to Dr. Camille thorpe with no IV access if pt is discharged today, if stays needs to have IV access. 1553: Sent text page to surgical team, need home care order. Order completed and in the chart. 1645: Pt left unit in stable condition via wheelchair. Pt had all belongings. Pt given discharge instructions and reviewed with pt and son. All questions answered. This note was completed by: Marizol Hankins [facility] NUTRITIONon 12-27-2021 NUTRITION HNO ID: [id number] Author: Merced Morales DTR Service: Nutrition Therapy Author Type: Computed Tomography Scanner Operator Type: Nutrition Filed: 12/27/2021 12:16 PM Note Text: NUTRITION THERAPY CIGAR HEAD PERFORATOR NOTE SERVICE DATE: 12/27/2021 SERVICE TIME: 10:00 AM Visit Type: Length of Stay;Diet Education Plan of Care: Supplements: Powerade Zero Oral Rehydration Solution;Impact AR Follow-Up: Tech Reassessment Nursing Admission Assessment Malnutrition Score: 0 Nutrition Intake: Diet Orders (From admission, onward) Start Ordered 12/26/21 1215 DIET GASTRO INTESTINAL START NOW Question: Gastro Intestinal Answer: FIBER CONTROLLED 12/26/21 1214 12/25/21 0000 DIET SUPPLEMENTS START NOW Question Answer Comment Supplement 1 (19 years and up) IMPACT ADVANCED RECOVERY VANILLA Supplement 1 Frequency 7. BREAKFAST, LUNCH, DINNER Supplement 2 (19 years and up) GATORADE G2 GLACIER FREEZE Supplement 2 Frequency 2. AM SNACK Supplement 2 Frequency 4. PM SNACK Supplement 2 Frequency 6. NIGHT SNACK Feeding instructions for nursing Start when advanced to unlimited liquids or GI soft diet 12/24/21 1611 Appetite: Good, tolerated breakfast well today Supplements: drinking Impact GI Symptoms: None Anthropometrics: Last Weight: 181 lb Body mass index is 31.05 kg/m?. Usual Weight: 81.6 kg (180 lb) Loss of lean body mass/visual muscle wasting: No Weight Change: Stable MNT Billing: $ Routine Care : 31-45 minutes SIGNATURE: Merced Morales DTR PATIENT NAME: Mary Leal DATE: December 27, 2021 TIME: 12:15 PM [facility] PT EDon 12-27-2021 PT ED HNO ID: [id number] Author: Merced Morales DTR Service: Nutrition Therapy Author Type: Computed Tomography Scanner Operator Type: Patient Education Filed: 12/27/2021 12:16 PM Note Text: NUTRITION THERAPY PATIENT EDUCATION SERVICE DATE: 12/27/2021 SERVICE TIME: 10:00 AM TOPIC: Diet: GI Soft w/ ostomy LEARNING ASSESSMENT Individuals Assessed: Patient Preferred Learning Method: : Verbal Instruction and Written Instruction Barriers to Learning: : None Evident LEARNING RESPONSE Instruction Provided to: Patient Patient / Family Response: Verbalizes Understanding Method of Instruction: Written instruction - handouts Verbal instruction Material(s) Provided to Patient: Nutrition Therapy instruction material: Eating Right and Avoiding Dehydration after Bowel Surgery Follow-Up Plan: Patient instructed to call with any further issues Referral (Recommendation): Nutrition - Inpatient MNT Billing: $ Routine Care : 31-45 minutes SIGNATURE: Merced Morales DTR PATIENT NAME: Mary Leal DATE: December 27, 2021 TIME: 12:16 PM PAGER: [facility] Basic Metabolic Panlon 12-26 Anion gap [Moles/Vol] 9 mmol/L Normal 9-18 [facility] Comment on above: Performed By: #### B MP #### [place] [address] Calcium [Mass/Vol] 8.5 mg/dL Normal 8.5-10.5 [facility] Comment on above: Performed By: #### B MP #### [place] [phone] Chloride [Moles/Vol] 102 mmol/L Normal 98-110 [facility] Comment on above: Performed By: #### B MP #### [place] [phone] CO2 [Moles/Vol] 28 mmol/L Normal 23-32 [facility] Comment on above: Performed By: #### B MP #### [place] [phone] Creatinine [Mass/Vol] 0.62 mg/dL Low 0.70-1.40 [facility] Comment on above: Performed By: #### B MP #### [place] [phone] eGFR- Amer. >60 Normal >59 [facility] Comment on above: Performed By: #### B MP #### [place] [phone] eGFR-All Other Races >60 Normal >59 [facility] Comment on above: Result Comment: eGFR (Estimated GFR) Units of measure: mL/min/1.73 meters squared eGFR is derived from the reexpressed MDRD Study equation using the following parameters: serum creatinine, age, gender and race. The creatinine assay has been calibrated to be traceable to IDMS. An eGFR <60 mL/min/1.73m2 for >3 months is consistent with chronic kidney disease. Refer to KDOQI guidelines for clinical interpretation. In patients with unstable renal function, e.g. those with acute kidney injury, the eGFR may not accurately reflect actual GFR. Note: On 01/01/2022, the eGFR calculation will be updated to the NKF-ASN Task Force recommended 2020 CKD-EPI creatinine equation which does not include a race variable. For more information or to access a 2020 CKD-EPI calculator, visit the National Kidney Foundation website at kidney.org/professionals/kdoqi/gfr_calculator. Performed By: #### B MP #### [place] [phone] Glucose [Mass/Vol] 71 mg/dL Normal 65-100 [facility] Comment on above: Performed By: #### B MP #### [place] [phone] Potassium [Moles/Vol] 4.0 mmol/L Normal 3.5-5.0 [facility] Comment on above: Performed By: #### B MP #### [place] [phone] Sodium [Moles/Vol] 139 mmol/L Normal 132-148 [facility] Comment on above: Performed By: #### B MP #### [place] [phone] Urea nitrogen [Mass/Vol] 10 mg/dL Normal 8-25 [facility] Comment on above: Performed By: #### B MP #### [place] [phone] NURSING PROGon 12-26-2021 NURSING PROG HNO ID: [id number] Author: Juan Crowley RN Service: Nursing Author Type: Registered Nurse Type: Nursing Progress Note Filed: 12/26/2021 5:25 PM Note Text: Nursing Progress Note Patient Name: Mary Leal Patient Location: [place] [address]/[place] [address] Daily Note: Call discontinued as directed in orders. 700cc output from call. 250cc NS instilled and then call catheter removed. Patient assisted to BSC and voided 200cc pink tinged urine. Patient assisted back to bed, not wanting to go to chair. Call light in reach. This note was completed by: [facility] NURSING PROG HNO ID: [id number] Author: Juan Crowley, RN Service: Nursing Author Type: Registered Nurse Type: Nursing Progress Note Filed: 12/26/2021 3:51 PM Note Text: Nursing Progress Note Patient Name: Mary Leal Patient Location: [place] [address]/[address] Daily Note: Patient AANDOx3. VSS. 2L NC POx. IVF infusing as ordered. Dilaudid NEGATIVE DEVELOPER, OXY IR on for pain. Patient drowsy yet easily arousable. Lap sites and transverse incision FLATWORK FEEDER with glue. Ileostomy draining liquid brown. Call draining clear yellow. PAS on. No edema. Fa,saman at bed side. Call light in reach. This note was completed by: [facility] Basic Metabolic Panlon 12-25 Anion gap [Moles/Vol] 9 mmol/L Normal 9-18 [facility] Comment on above: Performed By: #### B MP #### [place] [phone] Calcium [Mass/Vol] 8.5 mg/dL Normal 8.5-10.5 [facility] Comment on above: Performed By: #### B MP #### [place] [address] Chloride [Moles/Vol] 104 mmol/L Normal 98-110 [facility] Comment on above: Performed By: #### B MP #### [place] [phone] CO2 [Moles/Vol] 28 mmol/L Normal 23-32 [facility] Comment on above: Performed By: #### B MP #### [place] [address] Creatinine [Mass/Vol] 0.72 mg/dL Normal 0.70-1.40 [facility] Comment on above: Performed By: #### B MP #### [place] [id number] [place] [phone] eGFR- Amer. >60 Normal >59 [facility] Comment on above: Performed By: #### B MP #### [place] [phone] eGFR-All Other Races >60 Normal >59 [facility] Comment on above: Result Comment: eGFR (Estimated GFR) Units of measure: mL/min/1.73 meters squared eGFR is derived from the reexpressed MDRD Study equation using the following parameters: serum creatinine, age, gender and race. The creatinine assay has been calibrated to be traceable to IDMS. An eGFR <60 mL/min/1.73m2 for >3 months is consistent with chronic kidney disease. Refer to KDOQI guidelines for clinical interpretation. In patients with unstable renal function, e.g. those with acute kidney injury, the eGFR may not accurately reflect actual GFR. Note: On 01/01/2022, the eGFR calculation will be updated to the NKF-ASN Task Force recommended 2020 CKD-EPI creatinine equation which does not include a race variable. For more information or to access a 2020 CKD-EPI calculator, visit the National Kidney Foundation website at kidney.org/professionals/kdoqi/gfr_calculator. Performed By: #### B MP #### [place] [phone] Glucose [Mass/Vol] 91 mg/dL Normal 65-100 [facility] Comment on above: Performed By: #### B MP #### [place] [phone] Potassium [Moles/Vol] 4.0 mmol/L Normal 3.5-5.0 [facility] Comment on above: Performed By: #### B MP #### [place] [phone] Sodium [Moles/Vol] 141 mmol/L Normal 132-148 [facility] Comment on above: Performed By: #### B MP #### [facility] [address] [place] [address] Urea nitrogen [Mass/Vol] 12 mg/dL Normal 8-25 [facility] Comment on above: Performed By: #### B MP #### [facility] [address] [place] [address] CASE MGT INIT ASSESon 2021 CASE MGT INIT ASSES HNO ID: [id number] Author: TITO Whitt Service: ? 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 Last discharge within 30 days: No Advance Directive: Current Advance Directive: Health Care Power of Soap Mixer In Chart: No Health LiteracyHow often do you need to have someone help you when you read instructions, pamphlets, or other written material from your doctor or pharmacy? : 1 - Never How confident are you filling out medical forms by yourself?: 2 - Quite a bit If Patient scores > 3 on either question, the following interventions were put into place:: Patient did not score > 3 on either question. Baseline Mental Status Prior to this Illness what was the patient's Baseline Mental Status?: Alert AND Oriented Prior to this illness, has anyone described the patient having any of the following behaviors?: Disturbed Sleep;Withdrawn Relationship of the informant to the patient:: Self Functional Status: Independent Does Patient Currently Receive Any Community Services or Home Care?: Counseling Equipment Prior to Admission: None Has the Patient Been in a Nursing Home Facility in the Past 30 days?: No SOCIAL: Living Arrangements: Home Lives With: Partner;Son Financial Resources: Unemployed Primary Contact: Extended Emergency Contact Information Primary Emergency Contact: Charo Obando Mobile Relation: Daughter Supportive Patient Contact:: Yes Caregiver AssessmentCaregiver is ready, willing and able to meet the patient's needs as recommended by the inter-professional team:: Yes Does the patient have an acute stroke diagnosis, or has the patient had a stroke during this admission?: No Patient's transition needs and plan for meeting these needs: Home with home health new ostomy Patient's perception of need for this admission: new ostomy Medication Adherance I am convinced of the importance of my prescription medication: 0 - Agree Completely I worry that my prescription medication will do more harm than good to me : 0 - Disagree Completely I feel financially burdened by my [id number] expenses for my prescription medication:: 0 - Disagree Completely Risk Score: 0 Patient is categorized as: Low risk < 2 Are you interested in bedside delivery of your medications? Yes Is Patient Psychosocially Complex?: No ASSESSMENT AND PLAN: Medical Needs: Medical Needs: None Psychosocial Needs: Psychosocial Needs: None FREEDOM OF CHOICE EXPLAINED: [place] of Choice Given: Yes Level of Care Discussed: Home Care Financial Disclosure Provided: Yes Financial Disclosure Comments: careport Provider List: Home Care Provider list within the patient's requested geographic area shared with the patient/family: Yes within: 15 miles of zip code: [facility] Quality and resource use metrics shared with the patient that are relevant to the patient's goals of care and treatment preferences:: Yes Metrics: Skin Integrity;Functional Status;Potentially Preventable 30-day Post Discharge Readmission Rates POTENTIAL TRANSITION PLANS Home Care Pt admitted for new ostomy. Pt lives with family at home. Independent prior to admission. Daughter is emergency contact at bedside with pt during assessment. Charo Obando [phone]. Home care referrals sent. Daughter to transport at time of discharge. SIGNATURE: TITO Whitt PATIENT NAME: Mary Leal DATE: December 25, 2021 TIME: 11:39 AM PAGER/CONTACT #: [phone] Normal [facility] CBC and Differentialon 12-25 Abs Baso 0.03 k/uL Normal <0.11 [facility] Comment on above: Performed By: #### 5 7021-8 #### [facility] CLIA [id number] [address] [place] [address] [place] Abs [place] 0.45 k/uL Normal <0.87 [facility] Comment on above: Performed By: #### 5 7021-8 #### [facility] CLIA [id number] [address] [place] [address] [place] Abs Neut 3.85 k/uL Normal 1.45-7.50 [facility] Comment on above: Performed By: #### 5 7021-8 #### [facility] CLIA [id number] [address] [place] [address] [place] Absolute nRBC <0.01 Normal <0.01 [facility] Comment on above: Performed By: #### 5 7021-8 #### [facility] CLIA [id number] [address] [place] [address] [place] Basophils/100 WBC (Bld) 0.5 % Normal [facility] Comment on above: Performed By: #### 5 7021-8 #### [facility] CLIA [id number] [address] [place] [address] [place] DTYPE Auto Diff Normal [facility] Comment on above: Performed By: #### 5 7021-8 #### [facility] CLIA [id number] [address] [place] [address] [place] Eosinophils (Bld) [#/Vol] 0.14 10*3/uL Normal <0.46 [facility] Comment on above: Performed By: #### 5 7021-8 #### [facility] CLIA [id number] [address] [place] [address] [place] Eosinophils/100 WBC (Bld) 2.3 % Normal [facility] Comment on above: Performed By: #### 5 7021-8 #### [facility] CLIA [id number] [address] [place] [address] [place] Erythrocyte distribution wid th (RBC) [Ratio] 11.6 % Normal 11.5-15.0 [facility] Comment on above: Performed By: #### 5 7021-8 #### [facility] CLIA [id number] [address] [place] [address] Hematocrit (Bld) [Volume fraction] 35.2 % Low 3 6.0-46.0 [facility] Comment on above: Performed By: #### 5 7021-8 #### [facility] CLIA [id number] [address] [place] [address] [place] Hemoglobin (Bld) [Mass/Vol] 11.6 g/dL Normal 11.5-15. 5 [facility] Comment on above: Performed By: #### 5 7021-8 #### [facility] CLIA [id number] [address] [place] [address] Lymphocytes (Bld) [#/Vol] 1.47 10*3/uL Normal 1.00-4.0 0 [facility] Comment on above: Performed By: #### 5 7021-8 #### [facility] CLIA [id number] [address] [place] [address] Lymphocytes/100 WBC (Bld) 24.7 % Normal [facility] Comment on above: Performed By: #### 5 7021-8 #### [facility] CLIA [id number] [address] [place] [address] [place] MCH 29.5 pG Normal 26.0-34.0 [facility] Comment on above: Performed By: #### 5 7021-8 #### [facility] [facility] CLIA [id number] [address] [place] [address] OF [place] MCHC (RBC) [Mass/Vol] 33.0 g/dL Normal 30.5-36.0 [facility] Comment on above: Performed By: #### 5 7021-8 #### [facility] CLIA [id number] [address] [place] [address] [place] MCV (RBC) [Entitic vol] 89.6 fL Normal 80.0-100.0 [facility] Comment on above: Performed By: #### 5 7021-8 #### [facility] CLIA [id number] [address] [place] [address] [place] Monocytes/100 WBC (Bld) 7.6 % Normal [facility] Comment on above: Performed By: #### 5 7021-8 #### [facility] CLIA [id number] [place] [address] [place] Neutrophils/100 WBC (Bld) 64.9 % Normal [facility] Comment on above: Performed By: #### 5 7021-8 #### [facility] CLIA [id number] [address] [place] [address] [place] NRBCs 0.0 /100 WBC Normal 0 [facility] Comment on above: Performed By: #### 5 7021-8 #### [facility] CLIA [id number] [address] [place] [address] [place] Platelet mean volume (Bld) [Entitic vol] 9.0 fL Normal 9.0-12.7 [facility] Comment on above: Performed By: #### 5 7021-8 #### [facility] CLIA [id number] [address] [place] [address] [place] Platelets (Bld) [#/Vol] 271 10*3/uL Normal 150-400 [facility] Comment on above: Performed By: #### 5 7021-8 #### [facility] CLIA [id number] [address] [place] [address] [place] RBC (Bld) [#/Vol] 3.93 10*6/uL Normal 3.90-5.20 [facility] Comment on above: Performed By: #### 5 7021-8 #### [facility] CLIA [id number] [address] [place] [address] [place] WBC (Bld) [#/Vol] 5.96 10*3/uL Normal 3.70-11.00 [facility] Comment on above: Performed By: #### 5 7021-8 #### [facility] CLIA [id number] [place] CONSULTon 12-25-2021 CONSULT HNO ID: [id number] Author: Tri Kowalski APRN.AUTOMOTIVE SERVICE TECHNICIAN Service: Wound/Ostomy Author Type: Nurse Practitioner Type: Consults Filed: 12/25/2021 11:37 AM Note Text: OSTOMY SERVICE CONSULT ASPARAGUS BUNCHER SERVICE DATE: 12/25/2021 SERVICE TIME: 1015 Consultation requested by Jenifer Ayala MD for loop ileostomy. Any final recommendations will be communicated back to the requesting provider by way of shared medical record. Surgery: Laparoscopic Suture Rectopexy, Diverting Loop Ileostomy? Date of Surgery: 12/24/2021 Surgeon: Mary Obrien MD Subjective Mary Leal is a 51 year old female is being seen with the admitting diagnosis ofPelvic organ prolapse, rectorectal intussusception, Colonic inertia and Pelvic outlet obstruction . REVIEW OF SYSTEMS GENERAL: No weight loss, malaise or fevers RESPIRATORY: Negative for cough or SOB CARDIOVASCULAR: Negative for chest pain or palpitations GI: No nausea, vomiting, or diarrhea PAST MEDICAL HISTORY Diagnosis Date - Asthma as a child - Bipolar 1 disorder (HCC) - Gastroparesis - History of laparoscopic-assisted vaginal hysterectomy 10/2015 for endometriosis - HTN (hypertension) - PTSD (post-traumatic stress disorder) PAST SURGICAL HISTORY Procedure Laterality Date - COLONOSCOPY - EGD 2019 with dilation - PAST SURGICAL HISTORY OF left foot reconstruction - PAST SURGICAL HISTORY OF cervical neck surgery - PAST SURGICAL HISTORY OF Left ACL - PAST SURGICAL HISTORY OF anal fissure - PAST SURGICAL HISTORY OF Left CTR - PAST SURGICAL HISTORY OF appendectomy - PAST SURGICAL HISTORY OF bilat bunionectomy - TONSILLECTOMY HX 02/11/2021 and septoplasty - TONSILLECTOMY HX 07/2021 revision - VAGINAL HYSTERECTOMY 2014 [facility] 10/2015 for endometriosis, has remaining both Current Facility-Administered Medications Medication Dose Route Frequency - clonazePAM 0.5 mg tab(s) (KlonoPIN) 0.5 mg ORAL BID - carBAMazepine XR 400 mg tab(s) (TEGretol XR) 400 mg ORAL q 12 HR - rOPINIRole 2 mg tab(s) (REQUIP) 2 mg ORAL DAILY (7 AM) - ARIPiprazole 30 mg tab(s) (ABILIFY) 30 mg ORAL DAILY - albuterol HFA 90 mcg/actuation 2 Puff (PROVENTIL HFA, VENTOLIN HFA) 2 Puff INHALATION q 4 H PRN - atenolol 50 mg tab(s) (TENORMIN) 50 mg ORAL DAILY - vortioxetine 10 mg tab(s) (TRINTELLIX) 10 mg ORAL DAILY - sodium chloride 0.9 % (flush) 3-5 mL (BD POSIFLUSH) 3-5 mL INTRAVENOUS q 12 H - NaCl 0.9% iv flush bag 20 mL INTRAVENOUS PRN - lactated ringers iv infusion 75 mL/hr INTRAVENOUS CONTINUOUS - alvimopan 12 mg cap(s) (ENTEREG) 12 mg ORAL BID - ondansetron (PF) 4 mg injection (ZOFRAN) 4 mg INTRAVENOUS q 6 H PRN - acetaminophen 1,000 mg tab(s) (TYLENOL) 1,000 mg ORAL q 6 H - gabapentin 300 mg cap(s) (NEURONTIN) 300 mg ORAL q 8 H - keTORolac 15 mg injection (TORADOL) 15 mg INTRAVENOUS q 6 H Followed by - [START ON 12/26/2021] ibuprofen 400 mg tab(s) (MOTRIN) 400 mg ORAL q 8 H - enoxaparin 40 mg injection (LOVENOX) 40 mg SUBCUTANEOUS DAILY - magnesium sulfate 2 g in sterile water 50 ml 2 g INTRAVENOUS PRN(NO DISPENSE) - potassium chloride ER 20-40 mEq tab(s) (K-DUR, KLOR-CON) 20-40 mEq ORAL PRN Or - potassium chloride iv piggyback 20 mEq/100 mL 20 mEq INTRAVENOUS PRN - HYDROmorphone NEGATIVE DEVELOPER 0.5 mg/mL in NaCl 0.9% 100 mL INTRAVENOUS CONTINUOUS - rOPINIRole 4 mg tab(s) (REQUIP) 4 mg ORAL AT BEDTIME - mometasone 220 mcg/ actuation (14) 1 Puff inhaler (ASMANEX) 1 Puff INHALATION DAILY And - umeclidinium 62.5 mcg - vilanterol 25 mcg inhaler (ANORO ELLIPTA) 1 Inhalation INHALATION DAILY - pantoprazole DR 40 mg tab(s) (PROTONIX) 40 mg ORAL DAILY (6 AM) ALLERGIES Allergen Reactions - Risperidone Intolerance Breast discharge Objective PHYSICAL EXAM: BP 111/66 Pulse 80 Temp (Src) 98.4 (Oral) Resp 18 Ht 5' 4.016 (1.63m) Wt 181 lb (82.1kg) SpO2 97% BMI 31.05 kg/(m2). O2 Therapy: Nasal Cannula, Liters: 3 General: Alert, no distress, cooperative Skin: Skin color, texture, turgor normal. Abdomen: Abdomen soft, tender due to surgery, BS normal Stoma type: Loop ileostomy Diameter: Not measured Location: LLQ Protrusion: Budded Mucosal condition and color: Red and moist Mucocutaneous junction: Not visible at this time Supportive Tissue: Semisoft Impression/Recommendations OSTOMY CARE EDUCATION: Today's Teaching Consisted of: Diet, Pouch care, How to empty pouch, Fluid intake, Bathing, Clothing, Activity, Exercise and Hygiene Supplemental Material: Ostomy Skills kit, Guidelines for Nutrition, Community Resources, How to change a 1 piece pouch, UOAA Phamlets New Ostomy Patient Guide and Eating With An Ostomy Nutrition Guide. Method of Instruction: Individual instruction Written instruction - handouts Verbal instruction Demonstration-Hands on Learning Factors Affecting Learning: Emotional Factors: Sedated Instruction Provided To: Patient Supplies were left at bedside. PLAN: Recommend discharge with h (more content not included)... Normal [facility] NURSING PROGon 12-25-2021 NURSING PROG HNO ID: [id number] Author: Marilyn Henning RN Service: ? Author Type: Registered Nurse Type: Nursing Progress Note Filed: 12/25/2021 7:01 PM Note Text: Nursing Progress Note Patient Name: Mary Leal Patient Location: [place] [address] Daily Note: 0930 Pt AANDOx3. Lap sites intact. ABD tender. NEGATIVE DEVELOPER pump running. Stoma beefy red, dark brown liquid output. Pt stated that the eye pressure felt overnite has resolved. Call remains in place until OBGYN sees pt 12/26. Pt requesting PO pain medication. 1100 Pt up to chair. [address] Ontiveros bedside. 5mg oxy ordered q4 PRN. This note was completed by: Marilyn Henning [facility] NURSING PROG HNO ID: [id number] Author: Annette Ford RN Service: ? Author Type: Registered Nurse Type: Nursing Progress Note Filed: 12/25/2021 6:12 AM Note Text: Nursing Progress Note Patient Name: Mary Leal Patient Location: [place] [address] [address] Daily Note: Pt has been complaining of heart burn intermittently during the night. 0544: Pt complaining of worsening eye pain currently 8/10. Feeling flushed, dizzy, blurry vision, are all other s/s. Paged SROC. SROC okay to give oral medications and he will be up to see pt. New VS taken. 0550: SROC at bedside, full exam was given. 0552: Ostomy is now having stool instead of BS. This note was completed by: Annette Ford [facility] ANES POSTPROC EVALon 022 ANES POSTPROC EVAL HNO ID: [id number] Author: Charisse Aggarwal MD Service: Anesthesiology Author Type: Anesthesiologist Type: Anesthesia Postprocedure Evaluation Filed: 12/24/2021 4:17 PM Note Text: POST ANESTHESIA EVALUATION NOTE : 1970 Procedure Summary Date: 12/24/21 Room / Location: OR / OR Anesthesia Start: 810 Anesthesia Stop: 1413 Procedures: PROCTOPEXY LAPAROSCOPIC (N/A Abdomen) ANTERIOR COLPORRHAPHY REPAIR CYSTOCELE WITH OR W/O REPAIR URETHROCELE INCLUDING CYSTOURETHROSCOPY WHEN PERFORMED (N/A ) POSTERIOR COLPORRHAPHY W/ REPAIR RECTOCELE AND PERINEORRHAPHY (N/A ) SLING SURGERY FOR STRESS INCONTINENCE W/ TENSION FREE VAG TAPE (N/A ) CYSTOSCOPY (N/A ) Diagnosis: Pelvic floor dysfunction Rectocele Cystocele, midline Preoperative general physical examination Constipation, unspecified constipation type Urinary frequency Urgency of urination Mixed incontinence urge and stress (male)(female) (Pelvic floor dysfunction [M62.89]) (Rectocele [N81.6]) (Cystocele, midline [N81.11]) (Preoperative general physical examination [Z01.818]) (Constipation, unspecified constipation type [K59.00]) (Urinary frequency [R35.0]) (Urgency of urination [R39.15]) (Mixed incontinence urge and stress (male)(female) [N39.46]) Surgeons: Mary Obrien MD; Pam Wang MD Responsible Provider: Bre Yates MD Anesthesia Type: general ASA Status: 3 Anesthesia Type: general Airway Type: ETT Last Vitals Vitals Value Taken Time BP 122/74 12/24/21 1610 Temp 37.9 ?C (100.2 ?F) 12/24/21 1610 Pulse 115 12/24/21 1610 Resp 16 12/24/21 1610 SpO2 95 % 12/24/21 1610 [facility] AN POST OP NOTE Anesthesia Observations No Documentation SIGNATURE: Charisse Aggarwal MD PATIENT NAME: Mary Leal DATE: December 24, 2021 TIME: 4:17 PM CSN: [id number] [facility] ANES PRE-OPon 12-24-2021 ANES PRE-OP HNO ID: [id number] Author: Chayito Ojeda MD Service: Anesthesiology Author Type: Anesthesiologist Type: Anesthesia Preprocedure Evaluation Filed: 12/24/2021 7:27 AM Note Text: ANESTHESIOLOGY DAY OF SURGERY NOTE : 1970 Procedure Information Date/Time: 12/24/21 0731 Procedures: PROCTOPEXY LAPAROSCOPIC (N/A Abdomen) - Laparoscopic Rectopexy and Diverting Loop Ileostomy COLPOPEXY VAGINAL EXTRA-PERITONEAL (N/A ) ANTERIOR COLPORRHAPHY REPAIR CYSTOCELE WITH OR W/O REPAIR URETHROCELE INCLUDING CYSTOURETHROSCOPY WHEN PERFORMED (N/A ) POSTERIOR COLPORRHAPHY W/ REPAIR RECTOCELE AND PERINEORRHAPHY (N/A ) SLING SURGERY FOR STRESS INCONTINENCE W/ TENSION FREE VAG TAPE (N/A ) CYSTOSCOPY (N/A ) Location: OR10 / [facility] OR Surgeons: Mary Obrien MD; Pam Wang MD Estimated body mass index is 31.17 kg/m? as calculated from the following: Height as of 12/16/21: 162.6 cm (5' 4 ). Weight as of 12/16/21: 82.4 kg (181 lb 9.6 oz). Most recent hematocrit and potassium results: Hematocrit 38.1 10/15/2021 Potassium 4.2 10/15/2021 Relevant Problems CARDIO (+) HTN (hypertension) GI (+) GERD (gastroesophageal reflux disease) NEURO-PSYCH (+) History of 2019 novel coronavirus disease (COVID-19) PULMONARY (+) Asthma (+) History of 2019 novel coronavirus disease (COVID-19) Other (+) Arthritis of right acromioclavicular joint (+) Impingement syndrome of right shoulder I - PHYSICAL EVALUATION AIRWAY Patient intubated: No. Mallampati: II. TM distance: >3 FB. Neck ROM: full ROM without neurological symptoms. Mouth opening: adequate. DENTAL Normal dental observations. Dental findings: teeth intact. Additional exam findings: yes. CARDIOVASCULAR Normal cardiovascular observations. Rhythm: regular Rate: normal PULMONARY Normal pulmonary observations. Breath sounds clear to auscultation. II - ANESTHESIA PLAN ASA Score: 3 Anesthetic Plan: general Airway type: ETT The patient is not a current smoker. NPO Status: adequate Monitoring plan: standard ASA. Postoperative analgesic plan: multimodal analgesia. Anesthetic Risks, Benefits, Alternatives, Personnel Discussed. Consent obtained from: patient.Patient / Surrogate agrees to blood products: yes Significant changes in the patient condition since the History and Physical, not otherwise documented in primary service progress note: no. Potential Anesthesia issues that may suggest increased risk of complications or contraindication to planned procedure: none. Vitals Value Taken Time BP 122/76 12/24/21627 Pulse 86 12/24/21627 Resp 16 12/24/21627 Temp 36.4 ?C (97.5 ?F) 12/24/21627 SpO2 95 % 12/24/21627 Facility-Administered Medications as of 12/24/2021 Medication Dose Route Frequency - lidocaine 10 mg/mL (1 %) 1-2 mg injection (XYLOCAINE) 0.1-0.2 mL INTRADERMAL PRN - lactated ringers iv infusion 5-30 mL/hr INTRAVENOUS CONTINUOUS - cefTRIAXone 2 g in D5W 100 mL MB+ (ROCEPHIN) 2 g INTRAVENOUS Pre-Op Once - metroNIDAZOLE iv piggyback 500 mg in NaCl (iso-osmotic) 100 mL (FLAGYL) 500 mg INTRAVENOUS Pre-Op Once - [COMPLETED] alvimopan 12 mg cap(s) (ENTEREG) 12 mg ORAL Pre-Op Once - heparin 5,000 Units injection 5,000 Units SUBCUTANEOUS ONCE - [COMPLETED] acetaminophen 1,000 mg tab(s) (TYLENOL) 1,000 mg ORAL Pre-Op Once - [COMPLETED] gabapentin 300 mg cap(s) (NEURONTIN) 300 mg ORAL Pre-Op Once Outpatient Medications as of 12/24/2021 Medication Sig - rOPINIRole (REQUIP) 2 mg tablet Take 2 mg by mouth twice daily. Takes 2 mg in the AM and 4 mg PM - ARIPiprazole (ABILIFY) 30 mg tablet Take 30 mg by mouth once daily. - metroNIDAZOLE (FLAGYL) 500 mg tablet Take 1 tablet by mouth three times daily. Take 1 tablet at 6pm, 7pm, and 11pm, the evening prior to surgery. - neomycin 500 mg tablet Take 2 tablets by mouth as directed. Take 2 tablet at 6pm, 7pm, and 11pm the evening prior to surgery. - hlfrakfahhh-izlhqapzo-srdvggjf (TRELEGY ELLIPTA) 100-62.5-25 mcg Inhale 1 Puff as instructed once daily. - prucalopride 2 mg tablet (MOTEGRITY) Take 1 tablet (2 mg) by mouth once daily. - atenolol (TENORMIN) 50 mg tablet Take 50 mg by mouth once daily. - albuterol HFA (PROVENTIL HFA, VENTOLIN HFA) 90 mcg/actuation inhaler inhale 2 puffs by mouth INTO THE LUNGS every 4 hours if needed I have interviewed and examined the patient. I have reviewed the medical record and/or the pre-anesthesia evaluation, pertinent labs, and test results. This contains updated information obtained within 48 hours of Surgery/Procedure. SIGNATURE: Chayito Ojeda MD PATIENT NAME: Mary Leal DATE: December 24, 2021 TIME: 7:27 AM CSN: [id number] [facility] NOTon 12-24-2021 BRIEF OP NOT HNO ID: [id number] Author: Jenifer Ayala MD Service: Colorectal Author Type: Fellow Type: Brief Op Note Filed: 12/24/2021 12:16 PM Note Text: BRIEF OPERATIVE NOTE - COLORECTAL SURGERY Log ID: [id number] Surgery/Procedure Date: 12/24/2021 Incision/Procedure Start Time: 8:50 AM Incision Close/Procedure End Time: Surgeon(s) and Back Filler Operator(s): Surgeon(s) and Role: Panel 1: * Mary Obrien MD - Primary * Jenifer Ayala MD - Fellow Panel 2: * Pam Wang MD - Primary * Terese Matthew MD No Additional Staff Procedures and Anesthesia: Procedure(s) and Anesthesia Type: Panel 1: * PROCTOPEXY LAPAROSCOPIC - General Panel 2: * COLPOPEXY VAGINAL EXTRA-PERITONEAL - General * ANTERIOR COLPORRHAPHY REPAIR CYSTOCELE WITH OR W/O REPAIR URETHROCELE INCLUDING CYSTOURETHROSCOPY WHEN PERFORMED - General * POSTERIOR COLPORRHAPHY W/ REPAIR RECTOCELE AND PERINEORRHAPHY - General * SLING SURGERY FOR STRESS INCONTINENCE W/ TENSION FREE VAG TAPE - General * CYSTOSCOPY - General Stoma Type: Loop ileostomy Findings: Redundant sigmoid colon and laxity of the pelvic floor. Laparoscopic mobilization of the rectum (right and anterior). Right sacral fixation with ethibond via pfannenstiel incision. Estimated Blood Loss: 50 ml Specimens: None Diagnosis Code(s): Pre-Op Diagnosis Codes: * Pelvic floor dysfunction [M62.89] * Rectocele [N81.6] * Cystocele, midline [N81.11] * Preoperative general physical examination [Z01.818] * Constipation, unspecified constipation type [K59.00] * Urinary frequency [R35.0] * Urgency of urination [R39.15] * Mixed incontinence urge and stress (male)(female) [N39.46] Postop Diagnosis: Rectal intussusception Drains: None Wound Classification: Class 1, operative wound clean, non-traumatic, with no inflammation encountered, no break in technique, gastrointestinal and genitor-urinary tracts not entered Complications: None SIGNATURE: Jenifer Ayala MD PATIENT NAME: Mary Leal DATE: December 24, 2021 TIME: 12:10 PM [facility] NURSING PROGon 12-24-2021 NURSING PROG HNO ID: [id number] Author: Marilyn Henning RN Service: ? Author Type: Registered Nurse Type: Nursing Progress Note Filed: 12/24/2021 6:36 PM Note Text: Nursing Progress Note Patient Name: Mary Leal Patient Location: [place] [address] Daily Note: 1816 Pt arrived on floor with 100.2F temperature. Scheduled tylenol administered. Temperature 98.6 at 1816. Surgical incisions ELENI with glue, intact. Ostomy beefy red, producing sweat. Call remains in place. Pt Educated on NEGATIVE DEVELOPER pump usage. Daughter bedside. Bed low and locked. This note was completed [facility]: [facility]: [id number] Author: Marilyn Henning RN Service: ? Author Type: Registered Nurse Type: Nursing Progress Note Filed: 12/24/2021 4:19 PM Note Text: Nursing Progress Note Patient Name: Mary Leal Patient Location: [place] [address]/[id number] Transfer Note: Patient transferred into room/unit PK3-33 in stable condition. Actions taken: No futher actions taken at this time. Will continue to monitor and check with patient. This note was completed by: Marilyn [facility] NURSING PROG HNO ID: [id number] Author: Dianelys Lopez RN Service: Nursing Author Type: Registered Nurse Type: Nursing Progress Note Filed: 12/24/2021 6:30 AM Note Text: PATIENT EDUCATION TOPIC: PROCEDURE / SURGERY: Pre-op Teaching: Protocols PATIENT NAME: Mary Leal PATIENT LOCATION: [facility] OR POOL/[facility] OR POOL READINESS TO LEARN COGNITIVE ABILITY: Alert and oriented MOTIVATION TO LEARN: Interested FAMILY SUPPORT: Unable to assess - Family not present INSTRUCTION PROVIDED TO: Patient PATIENT LEARNS BEST BY: Individual Instruction FACTORS AFFECTING LEARNING: None PHYSICAL LIMITATIONS AFFECTING LEARNING: None LEARNING RESPONSE DIAGNOSIS: ADULT: Well Adult PATIENT/FAMILY RESPONSE: Verbalizes understanding of: PRE-OPERATIVE INSTRUCTIONS-Correct action to take to follow pre-operative instructions METHOD OF INSTRUCTION: Individual instruction FOLLOW-UP PLAN: Patient instructed to call with any further issues INSTRUCTIONAL AIDS USED: NA SUPPLEMENTAL MATERIAL PROVIDED TO PATIENT: None REFERRAL (RECOMMENDATION): None Electronically Signed By: Dianelys Langford [facility] OPERATIVE NOon 12-24-2021 OPERATIVE NO HNO ID: [id number] Author: Mary Obrien MD Service: Colorectal Author Type: Physician Type: Operative Report Filed: 12/24/2021 12:34 PM Note Text: COLON AND RECTAL SURGERY OPERATIVE REPORT PATIENT NAME: Mary Leal ADMISSION DATE: 12/24/2021 LOG ID: [id number] SURGERY/PROCEDURE DATE: 12/24/2021 INCISION/PROCEDURE START TIME: 8:50 AM INCISION CLOSE/PROCEDURE END TIME: AGE: [age] year old SEX: female SURGEON(S)/PROCEDURALIST(S) AND CHEF BROILER OR FRY(S): Surgeon(s) and Role: Panel 1: * Mary Obrien MD - Primary * Jenifer Ayala MD - Fellow Panel 2: * Pam Wang MD - Primary * Terese Matthew MD No Additional Staff ANESTHESIA: General PREOPERATIVE DIAGNOSIS (ES): Pelvic organ prolapse, rectorectal intussusception Colonic inertia Pelvic outlet obstruction POSTOPERATIVE DIAGNOSIS (ES): Pelvic organ prolapse, rectorectal intussusception Colonic inertia Pelvic outlet obstruction NAME OF OPERATION: Laparoscopic Suture Rectopexy, Diverting Loop Ileostomy INDICATIONS FOR PROCEDURE: 51-year-old female with pelvic outlet obstruction constipation, pelvic organ prolapse, rectal rectal intussusception, and discordant testing for colonic inertia. After extensive discussion of surgical options, she elected to proceed with pelvic floor repair in combination with Dr. Wang and laparoscopic suture rectopexy with diverting loop ileostomy. OPERATIVE FINDINGS: Deep cul-de-sac with redundant tissue consistent with pelvic organ prolapse. DESCRIPTION OF PROCEDURE: The patient was brought into the operating room and placed under general anesthesia in lithotomy position. The abdomen was prepped and draped in normal sterile fashion. The patient received appropriate preop antibiotics and DVT prophylaxis. A surgical time-out was performed. A Veress was used to access the abdomen, with saline drop test confirming entry into the correct space. The abdomen was insufflated to 15 mmHg. A 5 mm port was placed above the umbilicus, and the abdomen was inspected for any evidence of injury from abdominal insufflation. There was no evidence of injury, and the peritoneum, liver, and visible organs were all normal. Additional ports were placed under direct visualization in the right lower abdomen and two in the left lower abdomen. The patient was positioned in Trendelenburg, and the small bowel was retracted to the upper abdomen. The patient had a deep cul-de-sac with redundant tissue consistent with pelvic organ prolapse. Rectal mobilization was commenced at the level of the sacral promontory proceeding down the right pelvic gutter taking care to identify and protect the right ureter. This dissection was carried across anterior within the rectovaginal space down to the pelvic floor which was visualized anterior and on the right lateral aspect of the rectum. Physiologic adhesions of the terminal ileum to the mesentery and abdominal wall were divided to facilitate mobilization to the anterior abdominal wall to a preoperatively marked stoma site in the right lower abdomen. A Pfannenstiel incision was made 2 finger breadths above the pubic symphysis. The fascia was incised transversely, and the muscle was divided in the midline. The rectum was then pulled superiorly so it was straight but not on an excessive amount of tension. The lateral stalk on the right side of the rectum was then sutured to the periosteum of S1/S2 with two 0 Ethibond sutures. Following this, the rectum was suspended and secure. Again, it was checked to ensure it was not on excessive tension. The preoperatively marked right lower abdomen stoma site was prepared using a muscle-splitting technique. The terminal ileum was brought out through this opening and correct orientation with distal limb at the inferior skin opening was confirmed. The laparoscopic ports were removed and there was evidence of bleeding from the left mid-abdomen port site. This was ligated with a [id number] Vicryl suture and was confirmed to be hemostatic. The Pfannenstiel incision was closed with 0 Vicryl suture in a running fashion to reapproximate the peritoneum in the midline. The fascia was then closed transversely with a running #1 PDS sutures. The wounds were irrigated and the skin was closed with 4-0 Monocryl sutures. The patient tolerated the procedure well. The loop ileostomy was matured in Giana fashion to achieve 2 cm of eversion from the skin and secured with 3-0 Vicryl suture. Skin was anesthetized with 30 mL total of 0.5% Marcaine. The case was turned over to Dr. Wang for her portion of the pelvic floor repair, dictated separately. ESTIMATED BLOOD LOSS: 50 mL SPECIMENS: None DRAINS: None COMPLICATIONS: None INTRAOPERATIVE FLUIDS: See anesthesia record. SPONGE/INSTRUMENT/NEEDLE COUNTS: Correct x2. PRESENCE STATEMENT: I was present for the entire procedure as I have dictated above. Mary Obrien, (more content not included)... [facility] OPERATIVE NO HNO ID: [id number] Author: Pam Wang MD Service: Urogynecology Author Type: Physician Type: Operative Report Filed: 12/28/2021 10:03 AM Note Text: OPERATIVE/PROCEDURE REPORT LOG ID: [id number] SURGERY/PROCEDURE DATE: 12/24/2021 INCISION/PROCEDURE START TIME: 8:50 AM INCISION CLOSE/PROCEDURE END TIME: 1:50 PM SURGEON(S)/PROCEDURALIST(S) AND CHEF BROILER OR FRY(S): Surgeon(s) and Role: Panel 1: * Mary Obrien MD - Primary * Jenifer Ayala MD - Fellow Panel 2: * Pam Wang MD - Primary * Terese Matthew MD - Assisting No Additional Staff SURGERY/PROCEDURE(S): Anterior olporrhaphy Posterior colporrhaphy Placement of retropubic midurethral sling Perineorrhaphy Cystoscopy ANESTHESIA: General FINDINGS: Well suspended vaginal apex without evidence of prolapse Stage 2 anterior vaginal wall prolapse Stage 2 posterior vaginal wall prolapse Normal 360 degree cysto without evidence of trauma, suture, mesh or foreign body seen; ureteral orifice efflux seen bilaterally; urethra within normal limits Vaginal sweep was negative INDICATIONS: The patient is a 51 year old who presented for consultation for chronic constipation, fecal incontinence, vaginal bulge symptoms and mixed urinary incontinence. She desired surgical management On pre-operative POP-Q exam, Aa =?-1.0?Ba = 0???C = -8.0? gh =?4.5??pb = 4.0??tvl = 9.5 Ap =?0?Bp = +1.0???D = NA Preoperative urodynamics showed detrusor overactivity but patient confirmed bothersome stress incontinence. She desired an anti-incontinence procedure. Patient was also seen by Dr. Mary Obrien of Colorectal Surgery and was counseled for diverting loop ileostomy and concurrent suture rectopexy. The decision was made to perform cystocele repair, rectocele repair, mid-urethral sling and cystoscopy at the time of her surgery. She was counseled about all the risks, benefits, alternatives, complications, indications, and personnel of the procedures performed which she accepted. An informed consent was signed. SURGERY/PROCEDURE DETAILS: The patient was taken to the operating room where a surgical time-out and safety checklist were performed. The patient was then given prophylactic antibiotics and compression stockings were applied bilaterally. She underwent general anesthesia without any difficulty. She was positioned in the dorsal lithotomy position using padded adjustable stirrups, making sure that her lower extremities were not overly extended or flexed. She was prepped and draped in the normal sterile fashion. A Call catheter was inserted and the bladder was drained of all urine. Dr. Mary Obrien and her team proceeded first. Please see her operative report for further details. We then proceeded with our portion at the end of their surgery. A short weighted speculum was placed. A lonestar retractor was set up with blue hooks for retraction. The vaginal apex was again noted to be well suspended and so the decision was made to forego a vaginal apex repair. Allis clamps were placed on the proximal anterior wall, and the area was injected with dilute vasopressin. A midline vertical incision was made over the vaginal epithelium. Allis clamps were applied to each side of this incision, and the underlying muscularis was dissected off the vaginal epithelium sharply until the bilateral pelvic sidewalls were reached. The muscularis was then plicated in the midline using 2-0 PDS. All of the sutures were tagged. The call catheter was then removed and we then performed a cystoscopy with a 70-degree cystoscope. A 360 degree survey was performed without evidence of trauma, sutures or injury to the bladder. There were brisk urine jets coming from both ureteral orifices. The urethra was assessed without any evidence of injury. The call was then replaced. All of the tagged PDS sutures were trimmed. The vaginal epithelium was trimmed and then closed with 2-0 Vicryl in a running locked fashion. ? Attention was then turned to placement of the mid-urethral retropubic synthetic sling.?The lonestar retractor and then short weighted speculum were then removed. A khoury retractor was placed into the vagina to retract the posterior vaginal wall. The trocar exit sites were marked 2.5 cm lateral to the midline bilaterally just cephalad to the pubic bone. Each suprapubic site was injected with?10 ml?of?dilute vasopressin?into the retropubic space. Two Allis clamps were used to grasp just approximately 1 cm proximal to the ureteral meatus and 1.5cm more proximally to grasp the vaginal epithelium overlying the midurethra. Approximately 10 mL of dilute vasopressin?were injected submucosally on the midurethra and lateral to the midurethra. A 1 cm skin incision was made in the vaginal epithelium underlying the midurethra. Metzenbaum scissors were then used to create a tunnel between the vaginal epithelium and the inferior aspect of the (more content not included)... Normal [facility] Type and SCR (30D)on 022 ABO/RH(D) Positive Normal [facility] cj Comment on above: Performed By: #### T SCR30 ####[place] [phone] Confirm Blood Typeon 021 ABO/RH(D) Positive [facility] Comment on above: Performed By: #### C ONABO ####[place] [phone] Type and SCR (30D)on 021 ABO/RH(D) Positive [facility] Comment on above: Performed By: #### T SCR30 ####[place] [phone] Nonvisit Note - PTon Nonvisit Note - PT Chart reviewed with eval prepped for scheduled eval. KK Prim[facility]ivo [facility] [place] 01-08-2021 Consent [id number] D:127 [facility] Coding Summary.on 01-06-2021 Coding Summary. CODING DATE: FINAL [facility] STATUS: Home (Routine DC) PAYOR: Medicaid EAPG DESCRIPTION 0439 CLASS V PHARMACOTHERAPY ADMIT DX: REASON FOR VISIT DX: N32.81 Overactive bladder FINAL DX: PRINCIPAL: N32.81 Overactive bladder SECONDARY: N39.46 Mixed incontinence F31.9 Bipolar disorder, unspecified I10 Essential (primary) hypertension K21.9 Gastro-esophageal reflux disease without esophagitis M19.90 Unspecified osteoarthritis, unspecified site PYMT PROC EAPG STAT DESCRIPTION DOCTOR NAME DATE NOTE: The code number assigned matches the documented diagnosis and / or procedure in the patient's chart. However, the narrative phrase printed from the coding software may appear abbreviated, or result in slightly different terminology. Coded By: Eileen Scott Date Saved: 01/06/2021 09:01 am [facility] Consent for Procedure/Surger yon 01-04-2021 Consent for Procedure/Surgery [id number]#1.00CD:127 [facility] Consent for Procedure/Surgery [id number]:127 [facility] Consent for Treatmenton Consent for Treatment [id number]:127 [facility] Discharge Instructionson Discharge Instructions [id number]:127 [facility] Inpatient Patient Summaryon 01-04-2021 Inpatient Patient Summary [address] [address] Clinical Summary Person Information Name: MARY LEAL Age: 50 Years : 1970 Sex: Female PCP: Isatu WILLAMS DO Marital Status: Race: White Ethnicity: Non- or Language: Italian Visit Id: Visit Reason: MIXED INCONTINENCE Speciality: Acuity: Enc Type: Outpatient Med Service: Surgery Arrival: 01/04/2021 12:31:00 Discharge: Dispo Type: Address: [address] [place] [address] [id number] Provider Notes: Diagnosis: Problems Active Decreased bladder capacity Nocturia Weak urine stream Mixed incontinence OAB (overactive bladder) Stress incontinence Feeling of incomplete bladder emptying Urgency of urination Stress incontinence, female Interstitial cystitis Chronic pelvic pain in female Dysuria Flank pain Abdominal pain Frequency of urination Hypertension Headache Asthma Arthritis Smoking Status: Functional Status: Sensory Deficits: History of Falls: Mobility Assistance Prior to Admission: ADLs: Current Level of Assistance for Self-Care/Mobility: Cognitive Status: Allergies Poison laith () oxyCODONE (Unknown) Percocet (Unknown) RisperDAL (Unknown) Laboratory or Other Results This Visit (last charted value for your 01/04/2021 visit) No Laboratory or Other Results This Visit Measurements: Height: 162 cm Weight: Blood Pressure: Not Valued / Not Valued BMI: Procedures No Procedures Documented Immunizations No Immunizations Documented This Visit Final Med List: acetaminophen-hydrocodone ([place] 5/325 Tab) By Mouth every 6 hours. aripiprazole (Abilify) 25 Milligram By Mouth every day. atenolol (atenolol 50 mg Tab) 1 Tablets By Mouth every day. ciprofloxacin (Cipro 500 mg Tab) 1 Tablets By Mouth 2 times a day. Take twice daily x5 days starting the day prior to the procedure. Refills: 0. duloxetine (Cymbalta) By Mouth every day. indomethacin 75 Milligram By Mouth 2 times a day. Misc Prescription ([place]) 0. omeprazole 40 Milligram By Mouth every day. ropinirole (ropinirole 2 mg Tab) 1 Tablets By Mouth every day. Care Team Members: Attending Physician: Clifford OCONNOR MD Consulting Physician: Referring Physician: Clifford OCONNOR MD Follow up: With: Address: When: Clifford OCONNOR [address], [address], [facility] [address] [place] [id number] Business (1) Within 2 weeks Comments: Call for followup appointment. Have a great day! Patient Education Information: EU - Cystoscopy with Botox Injection Discharge Instructions (Custom) Normal [facility] IntraOperative Documentson 0 01-04-2021 IntraOperative Documents [id number]:127 Normal [facility] IntraOperative Documents [id number]:127 [facility] Main OR Intraoperative Recor don 01-04-2021 Main OR Intraoperative Record IntraOp Document Type FTURO Summary Primary Physician: Clifford OCONNOR MD Finalized Date/Time: 01/04/21 13:27:05 Pt. Name: MARY LEAL/Sex: 1970 Female Med Rec #: [id number] Physician: Clifford OCONNOR MD Financial #: [id number] Pt. Type: O Room/Bed: / Admit/Disch: 01/04/21 12:31:00 - Institution: Case Times FTURO Entry 1 Patient Times In Room 01/04/21 13:07:00 Out Room 01/04/21 13:27:00 Procedure Times Start 01/04/21 13:19:00 Stop 01/04/21 13:23:00 Anesthesia Times Last Modified By: Niecy Tran RN 01/04/21 13:27:01 Case Attendance FTURO Entry 1 Entry 2 Entry 3 Case Attendee Clifford OCONNOR MD FIRE TOWER KEEPER, Akin Mejias CST, Debi Chand Role Performed Surgeon - Primary Scrub - Primary Scrub - Primary Time In 01/04/21 13:07:00 01/04/21 13:07:00 01/04/21 13:07:00 Time Out 01/04/21 13:27:00 01/04/21 13:27:00 01/04/21 13:27:00 Procedure CYSTOSCOPY LOCAL BOTOX CYSTOSCOPY LOCAL BOTOX CYSTOSCOPY LOCAL BOTOX INJECTION(.) INJECTION(.) INJECTION(.) Comments PRECEPTING ORIENTING Last Modified By: Niecy Tran RN, RN, Kimberly Y Barbee RN, Kimberly Y 01/04/21 13:27:02 01/04/21 13:27:02 01/04/21 13:27:02 Entry 4 Case Attendee Niecy Tran RN Role Performed [employer] Dean - Primary Time In 01/04/21 13:07:00 Time Out 01/04/21 13:27:00 Procedure CYSTOSCOPY LOCAL BOTOX INJECTION(.) Comments Last Modified By: Niecy Tran RN 01/04/21 13:27:02 Surgical Procedures FTURO Entry 1 Procedure Description Procedure CYSTOSCOPY LOCAL BOTOX Modifiers . INJECTION Surgeon Description CYSTOSCOPY BOTOX 50 UNITS LOT NUMBER [id number] EXP DATE 08/2023 Primary Procedure Yes Primary Surgeon Clifford OCONNOR MD Start 01/04/21 13:19:00 Stop 01/04/21 13:23:00 Anesthesia Type Local Surgical Service Urology Wound Class 2 - Clean-Contaminated Last Modified By: Niecy Tran RN 01/04/21 13:23:45 General Case Data FTURO Pre-Care Text: Classifies surgical wound, implements aseptic technique, initiates traffic control Entry 1 Case Information OR URO 1 FT Case Level None Wound Class 2 - Clean-Contaminated Specialty Urology Preop Diagnosis MIXED INCONTINENCE Postop Same As Preop Yes Postop Diagnosis MIXED INCONTINENCE Outcomes Met? Yes Last Modified By: Niecy Tran RN 01/04/21 12:19:53 Post-Care Text: The patient is free from signs and symptoms of infection EU IntraOp - FTURO Pre-Care Text: Implements protective measures prior to operative or invasive procedure, confirms identity before the operative or invasive procedure, verifies operative procedure, surgical site, and laterality Entry 1 EU Perioperative Protocols Procedure(s) CYSTOSCOPY LOCAL BOTOX Patient Identity Birthday, ID Band INJECTION(.) Verified (select at Check, Patient least 2): Participation Consents / H and P HandP, Surgery/Procedure Operative Site N/A Verified Consent Marking Verified Surgical Site Yes Laterality Verified Yes Verified Procedure Verified Yes Correct Patient Yes Position Verified Availability Equipment, Medication Time Out Clifford OCONNOR MD, Verified (If Participants Sha PECK, Akin Cavazos, Applicable) Randell PECK, Chelsea Sarkar RN, Kimberly Y Time Out Complete 01/04/21 13:08:00 Allergies Reviewed? Yes Allergies Reviewed Self/Patient With Body Position Low Lithotomy Prep Area PERINEUM Prep Agents Betadine Solution Skin. Condition Dry, Warm, Unable to Description UNABLE TO VISUALIZE DUE Visualize TO PATEINT PARTIALLY CLOTHED Additional None Specimens Collected Vitals - EU Blood Pressure 153/97 Pulse 77 bpm Respirations 18 br/min SPO2 EBL 0 IandO - EU Total Intake 0 mL Total Output 0 mL Outcomes Met? Yes Last Modified By: Niecy Tran RN 01/04/21 13:08:52 Post-Care Text: The patient is free from signs and symptoms of injury caused by extraneous objects Case Comments Finalized By: Niecy Tran RN Document Signatures Signed By: Niecy Tran RN 01/04/21 13:27 Normal [facility] Main OR Preoperative Recordo n 01-04-2021 Main OR Preoperative Record Holding Area Document Type FTURO Summary Primary Physician: Clifford OCONNOR MD Finalized Date/Time: 01/04/21 13:05:55 Pt. Name: MARY LEAL /Sex: 1970 Female Med Rec #: [id number] Physician: Clifford OCONNOR MD Financial #: [id number] Pt. Type: O Room/Bed: / Admit/Disch: 01/04/21 12:31:00 - Institution: Case Times Holding FTURO Pre-Care Text: Verifies consent for planned procedure, identifies individual values and wishes concerning care, includes family members in perioperative teaching Secures patient's records' belongings, and valuables, maintains patient's dignity and privacy, and maintains patient confidentiality Entry 1 In Holding 01/04/21 12:43:00 Outcomes Met? Yes Last Modified By: Annmarie Alves LPN 01/04/21 12:43:48 Post-Care Text: The patient participates in decisions affecting his or her perioperative plan of care The patient's right to privacy is maintained Surgery Checklist FTURO Entry 1 Patient Birthday, ID Band Procedure History and Physical, Identification: Check, Patient Verification: Surgical Consent, With Participation Patient NPO after Midnight: n/a Personal Items: Contact Lenses Complaints of Pain: No Skin Integrity Unable to Visualize Vitals - EU Blood Pressure 153/97 Pulse 77 bpm Respirations 18 br/min SPO2 RN Reviewed Yes Last Modified By: Niecy Tran RN 01/04/21 13:05:55 General Comments: Temp. 36.1 Finalized By: Niecy Tran RN Document Signatures Signed By: Annmarie Alves LPN 01/04/21 12:46 Niecy Tran RN 01/04/21 13:05 Normal [facility] Operative Reporton Operative Report Patient: ERNESTO LEAL Age: 50 years Sex: Female : 1970 Associated Diagnoses: None Author: Clifford OCONNOR MD Procedure Operative Information Details: Date/ Time: 01/04/2021 13:26:00, Indications/preoperative discussion with patient: Overall I extensively discussed the patient's past evaluation which was previously performed by Dr. Marmolejo. She continues with urgency and frequency but denies any specific urgency incontinence. We discussed the fact that the Botox is mainly for overactive bladder symptomatology and that she did have some subjective difficulties with inability to empty the bladder, even with medication management. Discussed that the administration/instillation of Botox can also result in urinary retention difficulties but this will last a period of months and the worst case scenario would be that she would need to in and out catheterize to empty the bladder. Due to this possibility we did discuss decreasing the total dosing to 50 units versus 100 units and the patient is in agreement with that plan. She understands that urinary retention can still be a possibility despite decreasing the dosing into the bladder. Despite these risks among others as she wants to proceed.. 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 Post-Op Dx: Same. Anesthesia Type: Local. Procedure: Local Cystoscopy with botox injection, (50 units). Complications: None. Risks/Benefits/Informed Consent: Surgical risks, benefits, details of the procedure have been explained to the patient, Full informed consent has been obtained. Intraoperative Information Prepped: Patient is brought back to the endoscopy suite, Female Prep (Patient is placed in modified dorso/lithotomy position, 5 cc 2% Xylocaine Jelly is placed per Urethra, Straight cath inserted to obtain urine specimen, 60 cc 2% Xylocaine liquid inserted into bladder, 5 additional cc 2% Xylocaine Jelly is placed per Urethra, Patient in sitting position for 20 min dwell), Urine Specimen Results Negative for infection, Patient prepped in the usual fashion with Betadine solution, 10 cc 2% Xylocaine Jelly is placed per Urethra, After waiting several minutes the Cystoscope is introduced. Procedure: The trigone was identified and evaluated, 20 template injection sites were identified, The bladder was instilled with enough saline to achieve adequate visualization for the injections, The needle was inserted approximately 2 mm into the detrusor spaced approximately 1 cm apart, A total of 20 injections with 0.25 cc of volume was instilled for a total of 50 units.. The Urethra is: Normal, BOTOX: 50 units . The ureteral orifices: Show efflux of clear urine. The Bladder is: Normal, , no tumors, no stones. . Devices Implanted: None. Removal: Cystoscope is removed, The patient tolerated it well. Postoperative Information Discharge: Patient is discharged home with antibiotic coverage, Follow up arranged, F/U in two weeks. . Normal [facility] Comment on above: Result Comment: Elec tronically Signed By: Clifford OCONNOR MD\.br\Date and Time Signed: 01/04/21 13:30 EST Outpatient Surgery Discharge Instructionon 01-04-2021 Outpatient Surgery Discharge Instruction [address] [address] Patient Discharge Instructions PERSON INFORMATION Name: MARY LEAL Date of : 1970 Current Date: 01/04/2021 13:25:41 PHYSICIANS Admitting Physician: Clifford OCONNOR MD Comment: Discharge Diagnosis: MARY LELA has been given the following list of follow-up instructions, prescriptions, and patient education materials: IF UNABLE TO CONTACT YOUR PHYSICIAN AND YOU FEEL IT IS AN EMERGENCY, GO TO THE NEAREST EMERGENCY ROOM OR CALL 911 Follow up: With: Address: When: Clifford OCONNOR [address] [place] [address], [address], [address] [address] Business (1) Within 2 weeks Comments: Call for followup appointment. Have a great day! Comment: PATIENT EDUCATION INFORMATION Instructions: Cystoscopy with Botox injection ? Voiding after the procedure: there may be some pain, burning, urgency, frequency and blood tinged urine following the procedure. These symptoms usually resolve within 2-5 days. Drink the amount of fluid it takes to keep the urine pink to yellow or clear in color. Drinking enough water and fluids will help to ease any discomfort after your procedure. ? It may take a few days to a week to notice a gradual improvement in the overactive bladder symptoms. ? If you are having problems that seem out of the ordinary, please call. ? If unable to contact your physician and you feel it is an emergency, go to the nearest emergency room or call 911 ? Do not lift more than fifteen pounds for 1-2 days. If you see a lot of blood, you probably did too much. ? Diet ? you may resume your normal diet. ? Pain control ? You may take extra strength Tylenol or Motrin for discomfort. ? Call if you have a fever over 100 degrees. ELVIS Gloria KRISTEN D, have received the attached patient education materials/instructions and have verbalized understanding: May we do a follow up call? Yes No I was present when discharge instructions were given Patient Signature Date Clinican/Nurse Signature Date You may receive a survey from [employer] asking you to rate your care experience. Your feedback is important and will help us understand what we do well and how we can improve the quality of care we provide to you, your loved ones and our community. It?s an honor to serve you. Thank you for choosing [facility] Normal [facility] PT - Assessmentson 1 PT - Assessments [id number]#[id number]:127 Normal [facility] Ambulatory Clinical Summaryo n 11-11-2020 Ambulatory Clinical Summary {[id number]}CD:[id number] Brenda cutler [facility] Patient Educationon 11-11-19 21 Patient Education Family Medicine Urinary Frequency The number of times a normal person urinates depends upon how much liquid they take in and how much liquid they are losing. If the temperature is hot and there is high humidity then the person will sweat more and usually breathe a little more frequently. These factors decrease the amount of frequency of urination that would be considered normal. The amount you drink is easily determined, but the amount of fluid lost is sometimes more difficult to calculate. Fluid is lost in two ways: ? Sensible fluid loss is usually measured by the amount of urine that you get rid of. Losses of fluid can also occur with diarrhea. ? Insensible fluid loss is more difficult to measure. It is caused by evaporation. Insensible loss of fluid occurs through breathing and sweating. It usually ranges from a little less than a quart to a little more than a quart of fluid a day. In normal temperatures and activity levels the average person may urinate 4 to 7 times in a 24-hour period. Needing to urinate more often than that could indicate a problem. If one urinates 4 to 7 times in 24 hours and has large volumes each time, that could indicate a different problem from one who urinates 4 to 7 times a day and has small volumes. The time of urinating is also an important. Most urinating should be done during the waking hours. Getting up at night to urinate frequently can indicate some problems. CAUSES The bladder is the organ in your lower abdomen that holds urine. Like a balloon, it swells some as it fills up. Your nerves sense this and tell you it is time to head for the bathroom. There are a number of reasons that you might feel the need to urinate more often than usual. They include: ? Urinary tract infection. This is usually associated with other signs such as burning when you urinate. ? In men, problems with the prostate (a walnut-size gland that is located near the tube that carries urine out of your body). There are two reasons why the prostate can cause an increased frequency of urination: ? An enlarged prostate that does not let the bladder empty well. If the bladder only half empties when you urinate then it only has half the capacity to fill before you have to urinate again. ? The nerves in the bladder become more hypersensitive with an increased size of the prostate even if the bladder empties completely. ? . ? Obesity. Excess weight is more likely to cause a problem for women more than for men. ? Bladder stones or other bladder problems. ? Caffeine. ? Alcohol. ? Medications. For example, drugs that help the body get rid of extra fluid (diuretics ) increase urine production. Some other medicines must be taken with lots of fluids. ? Muscle or nerve weakness. This might be the result of a spinal cord injury, a stroke, multiple sclerosis or Parkinson's disease. ? Long-standing diabetes can decrease the sensation of the bladder. This loss of sensation makes it harder to sense the bladder needs to be emptied. Over a period of years the bladder is stretched out by constant overfilling. This weakens the bladder muscles so that the bladder does not empty well and has less capacity to fill with new urine. ? Interstitial cystitis (also called painful bladder syndrome). This condition develops because the tissues that line the insider of the bladder are inflamed (inflammation is the body's way of reacting to injury or infection). It causes pain and frequent urination. It occurs in women more often than in men. DIAGNOSIS ? To decide what might be causing your urinary frequency, your healthcare provider will probably: ? Ask about symptoms you have noticed. ? Ask about your overall health. This will include questions about any medications you are taking. ? Do a physical examination. ? Order some tests. These might include: ? A blood test to check for diabetes or other health issues that could be contributing to the problem. ? Urine testing. This could measure the flow of urine and the pressure on the bladder. ? A test of your neurological system (the brain, spinal cord and nerves). This is the system that senses the need to urinate. ? A bladder test to check whether it is emptying completely when you urinate. ? Cytoscopy. This test uses a thin tube with a tiny camera on it. It offers a look inside your urethra and bladder to see if there are problems. ? Imaging tests. You might be given a contrast dye and then asked to urinate. X-rays are taken to see how your bladder is working. TREATMENT It is important for you to be evaluated to determine if the amount or frequency that you have is unusual or abnormal. If it is found to be abnormal the cause should be determined and this can usually be found out easily. Depending upon the cause treatment could include medication, stimulation of the nerves, or surgery. There are not too many things that you can do as an individual to change your urinary (more content not included)... Normal Barkley Tate [facility] Phone [facility]- [facility] Urology Phone Visit- Telehealth HPI Staff Pt is here for Vesicare not working. Pain with urination:Pt denies pain but states a little bit of burning Blood in urine:Pt denies Incomplete bladder emptying:Pt denies Frequency:Pt states a little Urgency:Pt denies Nocturia:Pt states 2 times Hesitancy:Pt states occasionally Urination requires straining:Pt state she has to get on her left side to go Stream:Pt denies Stream starts and stops:Pt denies Leaking before getting to the restroom:Pt denies Urinary incontinence without sensory awareness:Pt denies Temporarily unable to restrain urination with body movement:Pt states only when she cough or sneeze Wearing pad/Depends:Pt denies Urine odor:Pt denies Flank/Back pain:Pt denies Abdominal pain:Pt states when she has to push urine out History of Present Illness Reviewed last encounter. There have been no associated fever, chills, flank pain or blood in the urine. Pt. denies any pain/burning with urination at this time. Review of Systems General: Fevers Denies, Weight Loss Denies, Weakness Denies Skin: Rash Denies, Non-healed Skin Wound Denies Blood: Bruising Denies, Bleeding Denies, Anemia Denies Eyes: Eye Problems Denies Ears: Recent Hearing Problems Denies Respiratory: Cough Denies, Coughing Blood Denies, Shorness of Breath Denies, Respiratory Infections Denies, Loud Snoring Denies Cardiovascular: Chest Pain Denies, Sensation of Irregular Heart Beat Denies Intestinal: Constipation Denies, Diarrhea Denies, Rectal Bleeding/Blood in Stool Denies Hemorrhoids Denies, Indigestion Denies, Nausea Denies, Vomiting Denies Genito-Urinary: Have you ever seen blood in your urine Denies, Have you ever been told there was blood in your urine Denies, Vaginal Discharge Denies, Vaginal Bleeding Denies, Leaking Urine (incontinence) Denies, Flank or Kidney Pain Denies, Pain relating to your bladder filling or emptying Denies, Burning with Urination Denies, Urinary Tract Infection Denies Kidney Stone Denies, Sexual Difficulties Denies Muscle-Skeletal: Joint Pain Denies, Back Pain Denies, Muscle Cramps Denies Nervous System: Headaches Denies, Seizures Denies, Blackouts Denies, Numbness Denies Weakness in a certain area of your body Denies, Tingling in a certain area of your body Denies Psychological: Confusion Denies, Anxiety Denies Other Free Text: Assessment/Plan This visit was conducted via phone communications from my office due to the restrictions of the COVID-19 pandemic. No physical exam was conducted due to audio only communication with the patient located at [address] [place], [place] [id number] , with no one else. If it is determined that the patient should be evaluated in person, the patient will be directed to the appropriate clinic or venue. The patient or their guardian verbally consented to this visit. Phone time was _11 minutes discussing health issues with counseling and coordination of care. 1. OAB (overactive bladder) (N32.81: Overactive bladder) Pt. was started on VESIcare 10mg qd but states that she has not noticed any improved symptoms. Pt. states that she goes to pelvic floor therapy. I advised pt. to do Kegel exercises whenever she can to help build the pelvic floor muscles. Pt. is to also start timed voids q2-3hr during waking hours whether the urge to void is present or not. At this time, will have pt. d/c VESIcare. Will schedule pt. for Urodynamics. All questions/concerns were discussed. Pt. to call the office if sheencounters any issues prior. Pt. acknowledges understanding. 2. Nocturia (R35.1: Nocturia) 2-3x/night. 3. Weak urine stream (R39.12: Poor urinary stream) Weak stream w/ moderate hesitancy, intermittency, and straining to void. 4. Stress incontinence (N39.3: Stress incontinence (female) (male)) Moderate w/ coughing and sneezing. I have reviewed the previous health record information and history for this pt. from Dr. Marmolejo. Mixed incontinence with weak urine stream refractory to pelvic floor therapy and to vesicare cysto 08/07/20 negative for stricture. Follow-up With When Contact Information Dawna Marmolejo MD [address] [place] [phone] Additional Instructions: Patient Education Urodynamic Testing Overactive Bladder, Adult I, Christy Gill , personally scribed for Dr. Marmolejo on 10/21/2020 12:00:50. . Documentation recorded by the scribeChristy, accurately reflects the services(s) I performed and decisions made by me. Authenticated by Dr. Marmolejo on 11/03/2020 11:57:10. Problem List/Past Medical History Ongoing Abdominal pain Arthritis Asthma Chronic pelvic pain in female Dysuria Feeling of incomplete bladder emptying Flank pain Frequency of urination Headache Hypertension Interstitial cystitis Nocturia OAB (overactive bladder) Stress incontinence Stress incontinence, female Urgency of urination Weak urine stream His (more content not included)... Normal [facility] Comment on above: Result Comment: Elec tronically Signed By: Dawna Marmolejo MD\.br\Date and Time Signed: 11/03/20 11:59 EST\.br\Electronically Co-Signed By: Christy Gill MA\.br\Date and Time Co-Signed: 10/21/20 12:01 EST Coding Summary.on 10-28-2020 Coding Summary. CODING DATE: 020 FINAL [facility] STATUS: Home (Routine DC) PAYOR: Medicaid EA DESCRIPTION 0161 URINARY STUDIES AND PROCEDURES 0213 NERVE AND MUSCLE TESTS ADMIT DX: REASON FOR VISIT DX: N32.81 Overactive bladder FINAL DX: PRINCIPAL: N32.81 Overactive bladder SECONDARY: R35.1 Nocturia N39.3 Stress incontinence (female) (male) E78.5 Hyperlipidemia, unspecified I10 Essential (primary) hypertension K21.9 Gastro-esophageal reflux disease without esophagitis F31.9 Bipolar disorder, unspecified PYMT PROC EAPG STAT DESCRIPTION DOCTOR NAME DATE NOTE: The code number assigned matches the documented diagnosis and / or procedure in the patient's chart. However, the narrative phrase printed from the coding software may appear abbreviated, or result in slightly different terminology. Coded By: Eileen Scott Date Saved: 10/28/2020 11:17 am Normal [facility] Ambulatory Clinical Summaryo n 10-27-2020 Ambulatory Clinical Summary {[id number] Brenda cutler [facility] Consent for Procedure/Surger yon 10-27-2020 Consent for Procedure/Surgery [id number]:127 Normal [facility] Consent for Treatmenton 10-07 Consent for Treatment [id number]#1.00CD:127 [facility] IntraOperative Documentson 1 12-28-2019 IntraOperative Documents [id number]#1.00CD:127 [facility] Patient Educationon 10-21-20 20 Patient Education Family Medicine Urodynamic Testing If you have a problem with urine leakage, urodynamic testing may be useful. This non-invasive test will be helpful to find out the cause of the problem. Problems in the urinary system can be caused by aging, illness, or injury. The muscles in your ureters, bladder, and urethra can become weaker with age. You may have more urinary infections and bladder stones because of the weakened bladder muscles. The muscles may not empty your bladder completely. Also, weakening of the urethral sphincter and the muscles of the pelvic floor can cause stress urinary continence. This is because the sphincter cannot remain tight enough to hold urine in the bladder or does not have enough support from the pelvic muscles. Urodynamics is the study of how the body stores and releases urine. These tests help your caregiver see how well your bladder and sphincter muscles work. The tests can help explain symptoms such as: ? Inability to control your urine (incontinence ). ? Sudden, strong urges to urinate. ? Painful urination. ? Recurrent urinary tract infections. ? Frequent urination. ? Problems starting a urine stream. ? Problems emptying your bladder completely. PREPARATION FOR TEST If your caregiver recommends bladder testing, usually no special preparations are needed. Make sure you understand any instructions you receive. Depending on the test, you may be asked to come with a full bladder or an empty one. Also, ask whether you should change your diet or skip your regular medicines and for how long. TAKING THE TEST Any procedure designed to provide information about a bladder problem can be called a urodynamic test. Your caregiver will want to know whether: ? You have difficulty starting a urine stream. ? How hard you have to strain to maintain it. ? The stream is interrupted. ? Any urine is left in your bladder when you are done (post void residual ). Urodynamic tests can range from simple observation to precise measurement using instruments. TESTING METHODS The type of test you take depends on your problem. The different tests are described below. ? The use of imaging equipment. This equipment films urination. ? Urinating behind a curtain while a doctor or nurse listens. ? If leakage is the problem, a pad test is a simple way to measure how much urine seeps out. You will be given a number of absorbent pads and plastic bags. You will be told to wear the pad for 1 or 2 hours and then seal it in a bag. Your caregiver will then weigh the bags to see how much urine has been caught in the pad. A simpler, but less precise method is to change pads as often as you need to and keep track of how many pads you use in a day. ? A physical exam will also be performed to rule out other causes of urinary problems. Other causes could include weakening pelvic muscles (pelvic prolapse ) or prostate enlargement. ? Pressure Flow Study-you will empty your bladder so a catheter can measure the pressures required to urinate. This study helps to identify causes of bladder outlet obstruction that men may experience with prostate enlargement. Bladder outlet obstruction is less common in women but can occur with a fallen bladder or rarely after a surgical procedure for urinary incontinence. ? Electromyography (Measurement of Nerve Impulses)-If your caregiver thinks that your urinary problem is related to nerve damage, you may be given an electromyography. This test measures the muscle activity in the urethral sphincter. It uses sensors placed on the skin near the urethra and rectum. Muscle activity is recorded on a machine. The impulse patterns show if the messages sent to the bladder and urethra are coordinated correctly. ? Video Urodynamics-can be performed with or without equipment to take pictures of the bladder during filling and emptying. The imaging equipment may use X-rays or sound waves. If X-ray equipment is used, the liquid used to fill the bladder may be a contrast medium that will show up on the X-ray. The pictures and videos show the size and shape of the urinary tract and help your caregiver understand your problem. AFTER THE TEST You may have mild discomfort for a few hours after these tests. Drinking two, 8-ounce glasses of water, each hour for 2 hours should help. Ask your caregiver if you can take a warm bath. If not, you may be able to hold a warm, damp washcloth over the urethral opening. This may relieve discomfort. You may be given an antibiotic to prevent an infection. Call your caregiver if you have signs of infection. These signs include pain, chills, or fever. OBTAINING THE TEST RESULTS Results for simple tests can be discussed with your caregiver immediately after the test. Results of other tests may take a few days. You will have time to ask questions about the results and possible treatments for your problem. It is your responsibility to obtain your test results. Ask the lab or depar (more content not included)... Normal [facility] PT - Assessmentson 0 PT - Assessments [id number]:127 [facility] Nonvisit Note - PTon 020 Nonvisit Note - PT Per voicemail: she n eeds to cancel all of her PT due to personal reasons. [facility] Provider Letteron 09-09-2020 Provider Letter (Inserted Image. Jessica ble to display) September 09, 2020 MARY LEAL [address] [place] [address] MARY LEAL 1970 Dear Mary Leal, You missed your scheduled appointment on: 09/09/[address] aMrmolejo and the purpose of this letter is to inform you of our *No Show Policy*. Our appointment slots fill rapidly and when we have a no show appointment that time is lost. We could have used that time slot to care for a patient who needed to see one of our providers. Therefore, we ask that you call 24 hours in advance to cancel your appointment. After your second no show within a twelve (12) month period, you will be assessed a $30 charge. This policy is in place so that we can meet the needs of all of our patients and we do appreciate your understanding. Sincerely, [facility] [address] [facility] [facility] [address], [place] [address] [facility] PT - Assessmentson 0 PT - Assessments [id number]:127 [facility] PT - Assessments [id number]:127 [facility] PT - Assessmentson 0 PT - Assessments [id number]:127 [facility] PT - Consentson 08-31-2020 PT - Consents [id number]#1.00CD:127 [facility] Pre-Certification Formon Pre-Certification Form [id number]:127 Normal [facility] Pre-Certification Form [id number]#1.00CD:127 Normal [facility] Consent for Procedure/Surger yon 08-26-2020 Consent for Procedure/Surgery [id number]:127 Normal [facility] Ambulatory Clinical Summaryo n 08-25-2020 Ambulatory Clinical Summary {[id number]}CD:[id number] Brenda cutler [facility] Patient Educationon 08-25-20 Patient Education Family Medicine Interstitial Cystitis Interstitial cystitis (IC) is a condition that results in discomfort or pain in the bladder and the surrounding pelvic region. The symptoms can be different from case to case and even in the same individual. People may experience: ? Mild discomfort. ? Pressure. ? Tenderness. ? Intense pain in the bladder and pelvic area. CAUSES Because IC varies so much in symptoms and severity, people studying this disease believe it is not one but several diseases. Some caregivers use the term painful bladder syndrome (PBS) to describe cases with painful urinary symptoms. This may not meet the strictest definition of IC. The term IC / PBS includes all cases of urinary pain that cannot be connected to other causes, such as infection or urinary stones. SYMPTOMS Symptoms may include: ? An urgent need to urinate. ? A frequent need to urinate. ? A combination of these symptoms. Pain may change in intensity as the bladder fills with urine or as it empties. Women's symptoms often get worse during menstruation. They may sometimes experience pain with vaginal intercourse. Some of the symptoms of IC / PBS seem like those of bacterial infection. Tests do not show infection. IC / PBS is far more common in women than in men. DIAGNOSIS The diagnosis of IC / PBS is based on: ? Presence of pain related to the bladder, usually along with problems of frequency and urgency. ? Not finding other diseases that could cause the symptoms. ? Diagnostic tests that help rule out other diseases include: ? Urinalysis. ? Urine culture. ? Cystoscopy. ? Biopsy of the bladder wall. ? Distension of the bladder under anesthesia. ? Urine cytology. ? Laboratory examination of prostate secretions. A biopsy is a tissue sample that can be looked at under a microscope. Samples of the bladder and urethra may be removed during a cystoscopy. A biopsy helps rule out bladder cancer. TREATMENT Scientists have not yet found a cure for IC / PBS. Patients with IC / PBS do not get better with antibiotic therapy. Caregivers cannot predict who will respond best to which treatment. Symptoms may disappear without explanation. Disappearing symptoms may coincide with an event such as a change in diet or treatment. Even when symptoms disappear, they may return after days, weeks, months, or years. Because the causes of IC / PBS are unknown, current treatments are aimed at relieving symptoms. Many people are helped by one or a combination of the treatments. As researchers learn more about IC / PBS, the list of potential treatments will change. Patients should discuss their options with a caregiver. SURGERY ? Surgery should be considered only if all available treatments have failed and the pain is disabling. Many approaches and techniques are used. Each approach has its own advantages and complications. Advantages and complications should be discussed with a urologist. Your caregiver may recommend consulting another urologist for a second opinion. Most caregivers are reluctant to operate because the outcome is unpredictable. Some people still have symptoms after surgery. ? People considering surgery should discuss the potential risks and benefits, side effects, and long- and short-term complications with their family, as well as with people who have already had the procedure. Surgery requires anesthesia, hospitalization, and in some cases weeks or months of recovery. As the complexity of the procedure increases, so do the chances for complications and for failure. HOME CARE INSTRUCTIONS ? All drugs, even those sold over the counter, have side effects. Patients should always consult a caregiver before using any drug for an extended amount of time. Only take xnyz-xva-kgeolnz or prescription medicines for pain, discomfort, or fever as directed by your caregiver. ? Many patients feel that smoking makes their symptoms worse. How the by-products of tobacco that are excreted in the urine affect IC / PBS is unknown. Smoking is the major known cause of bladder cancer. One of the best things smokers can do for their bladder and their overall health is to quit. ? Many patients feel that gentle stretching exercises help relieve IC / PBS symptoms. ? Methods vary, but basically patients decide to empty their bladder at designated times and use relaxation techniques and distractions to keep to the schedule. Gradually, patients try to lengthen the time between scheduled voids. A diary in which to record voiding times is usually helpful in keeping track of progress. MAKE SURE YOU: ? Understand these instructions. ? Will watch your condition. ? Will get help right away if you are not doing well or get worse. Document Released: 06/23/2005 Document Revised: 01/14/2013 Document Reviewed: 09/07/2009 ExitCare? Patient Information ?2013 [employer]. Normal Barkley Tate Lorenzo [facility] Urology Office/Clinic Noteon 08-25-2020 Urology Office/Clinic Note Chief Complaint cysto HPI Staff cysto, pt took abx. History of Present Illness Pt is here for Cysto. Physical Exam Vitals & Measurements HR: 16(Peripheral) BP: 140/98 HT: 163 cm HT: 163.0 cm WT: 77.3 kg WT: 77.3 kg BMI: 29.09 Procedure Operative Information Anesthesia Type: Local Procedure: Local Cystoscopy Complications: None Surgical risks, benefits, details of the procedure have been explained to the patient. Full informed consent has been obtained. Intraoperative Information Prepped: Patient is brought back to the endoscopy suite. Patient is placed in modified dorso/lithotomy position. Patient prepped in the usual fashion with Betadine solution. 2% Xylocaine Jelly is placed per Urethra. After waiting several minutes, the Cystoscope is introduced. The Urethra is: Normal The Bladder: Normal, Trabeculated: None (0) The Ureteral orifices: nL position and number but slightly closer to internal os without trigonal folding Removal: Cystoscope is removed. The patient tolerated it well. Postoperative Information Patient is discharged home with antibiotic coverage. Follow up arranged. Assessment/Plan Will return for follow up in 3 months. 1. Chronic pelvic pain in female (R10.2: Pelvic and perineal pain) Will start Myrbetriq 50mg qd. 2. OAB (overactive bladder) (N32.81: Overactive bladder) Will start Myrbetriq 50mg qd. 3. Feeling of incomplete bladder emptying (R39.14: Feeling of incomplete bladder emptying) 4. Stress incontinence, female (N39.3: Stress incontinence (female) (male)) 5. Urgency of urination (R39.15: Urgency of urination) 6. Weak urine stream (R39.12: Poor urinary stream) Follow-up With When Contact Information Dawna Marmolejo MD In 3 months Additional Instructions: Patient Education Interstitial Cystitis I, Mary Hager, personally scribed for Dr. Marmolejo on 08/25/2020 09:51:24. . Documentation recorded by the scribeMary, accurately reflects the services(s) I performed and decisions made by me. Authenticated by Dr. Marmolejo on 08/25/2020 10:02:44. 50 YO female with OAB and IC CPP symptoms on sleep medicine today with a chief complaint about the issue of nocuturia with accompanying daytime frequency. I did not recommend a voiding diary for nocturia but I did recommend adding myrebetriq to see if this helps with her pelvic floor PT. I favored the PT given her pain but given she reports voiding every hour and getting up 2 to 3 times per night despite 2 seperate sleep medications, I felt she may get added benefit. WAter process and renal blood flow can be helped with exercise and this can help with sleep as well. I look forward to seeing her back in a few months as I suspect her pain scores maybe to high right now to allow for much exercise. PT is a good start and patient reports her first evaluation but was not able to give a impression on if she felt it was helpful. Problem List/Past Medical History Ongoing Abdominal pain Arthritis Asthma Chronic pelvic pain in female Dysuria Feeling of incomplete bladder emptying Flank pain Frequency of urination Headache Hypertension Interstitial cystitis Nocturia OAB (overactive bladder) Stress incontinence Stress incontinence, female Urgency of urination Weak urine stream Historical Acid reflux Attention deficit disorder Bipolar disorder Chronic depression Tear of anterior cruciate ligament Procedure/Surgical History Cystoscopy (08/25/2020), Anal fissurectomy (05/11/2010), Appendectomy (08/15/1988), Ankle, BILATERAL BUNIONECTOMY, H/O: tubal ligation. Medications Abilify, 25 mg, Oral, Daily atenolol 50 mg Tab, 50 mg= 1 tab(s), Oral, Daily CeleXA 20 mg Tab, 20 mg= 1 tab(s), Oral, Daily Dayvigo, 0 indomethacin, 75 mg, Oral, BID omeprazole, 40 mg, Oral, Daily oxybutynin 5 mg Tab, 5 mg= 1 tab(s), Oral, q8hr, PRN, 6 refills ropinirole 2 mg Tab, 2 mg= 1 tab(s), Oral, Daily tramadol 50 mg oral tablet, 50 mg= 1 tab(s), Oral, PRN, Not taking Vitamin D3, 400 International_Unit, Not taking Allergies Percocet (Unknown) Poison laith (Rash) RisperDAL (Unknown) oxyCODONE (Unknown) Social History Alcohol - Denies Alcohol Use, 04/22/2011 Substance Abuse - Denies Substance Abuse, 04/22/2011 Tobacco - Denies Tobacco Use, 04/22/2011 Never (less than 100 in lifetime) Tobacco Use:. Never Smokeless Tobacco Use:., 08/25/2020 Family History AF - Atrial fibrillation: Father. Alzheimer's disease: Mother. Hypertension: Mother and Father. Normal [facility] Comment on above: Result Comment: Elec tronically Signed By: Francie BENSON, Dawna Feldman\.br\Date and Time Signed: 08/25/20 10:06 EDT\.br\Electronically Co-Signed By: Mary Hager\.br\Date and Time Co-Signed: 08/25/20 09:51 EDT Coding Summary.on 08-21-2020 Coding Summary. CODING DATE: 020 [facility] STATUS: PAYOR: Medicaid EA DESCRIPTION 0271 PHYSICAL THERAPY ADMIT DX: REASON FOR VISIT DX: R27.9 Unspecified lack of coordination FINAL DX: PRINCIPAL: R27.9 Unspecified lack of coordination SECONDARY: N94.89 Other specified conditions associated with female genital organs and menstrual cycle N39.3 Stress incontinence (female) (male) PYMT PROC EAPG STAT DESCRIPTION DOCTOR NAME DATE NOTE: The code number assigned matches the documented diagnosis and / or procedure in the patient's chart. However, the narrative phrase printed from the coding software may appear abbreviated, or result in slightly different terminology. Coded By: Brittanie Raymond CphT Date Saved: 08/21/2020 10:42 am Normal [facility] 08-21-2020 Consent [id number] :127 Normal [facility] Ambulatory Clinical Summaryo n 08-19-2020 Ambulatory Clinical Summary {[id number]}CD:[id number] Brenda cutler [facility] Ambulatory Clinical Summary {[id number]}CD:[id number] Brenda cutler [facility] Nonvisit Note - PTon 020 Nonvisit Note - PT Chart reviewed for ila lan. KK Normal [facility] Patient Educationon 08-19-20 20 Patient Education Family Medicine Urinary Frequency The number of times a normal person urinates depends upon how much liquid they take in and how much liquid they are losing. If the temperature is hot and there is high humidity then the person will sweat more and usually breathe a little more frequently. These factors decrease the amount of frequency of urination that would be considered normal. The amount you drink is easily determined, but the amount of fluid lost is sometimes more difficult to calculate. Fluid is lost in two ways: ? Sensible fluid loss is usually measured by the amount of urine that you get rid of. Losses of fluid can also occur with diarrhea. ? Insensible fluid loss is more difficult to measure. It is caused by evaporation. Insensible loss of fluid occurs through breathing and sweating. It usually ranges from a little less than a quart to a little more than a quart of fluid a day. In normal temperatures and activity levels the average person may urinate 4 to 7 times in a 24-hour period. Needing to urinate more often than that could indicate a problem. If one urinates 4 to 7 times in 24 hours and has large volumes each time, that could indicate a different problem from one who urinates 4 to 7 times a day and has small volumes. The time of urinating is also an important. Most urinating should be done during the waking hours. Getting up at night to urinate frequently can indicate some problems. CAUSES The bladder is the organ in your lower abdomen that holds urine. Like a balloon, it swells some as it fills up. Your nerves sense this and tell you it is time to head for the bathroom. There are a number of reasons that you might feel the need to urinate more often than usual. They include: ? Urinary tract infection. This is usually associated with other signs such as burning when you urinate. ? In men, problems with the prostate (a walnut-size gland that is located near the tube that carries urine out of your body). There are two reasons why the prostate can cause an increased frequency of urination: ? An enlarged prostate that does not let the bladder empty well. If the bladder only half empties when you urinate then it only has half the capacity to fill before you have to urinate again. ? The nerves in the bladder become more hypersensitive with an increased size of the prostate even if the bladder empties completely. ? . ? Obesity. Excess weight is more likely to cause a problem for women more than for men. ? Bladder stones or other bladder problems. ? Caffeine. ? Alcohol. ? Medications. For example, drugs that help the body get rid of extra fluid (diuretics ) increase urine production. Some other medicines must be taken with lots of fluids. ? Muscle or nerve weakness. This might be the result of a spinal cord injury, a stroke, multiple sclerosis or Parkinson's disease. ? Long-standing diabetes can decrease the sensation of the bladder. This loss of sensation makes it harder to sense the bladder needs to be emptied. Over a period of years the bladder is stretched out by constant overfilling. This weakens the bladder muscles so that the bladder does not empty well and has less capacity to fill with new urine. ? Interstitial cystitis (also called painful bladder syndrome). This condition develops because the tissues that line the insider of the bladder are inflamed (inflammation is the body's way of reacting to injury or infection). It causes pain and frequent urination. It occurs in women more often than in men. DIAGNOSIS ? To decide what might be causing your urinary frequency, your healthcare provider will probably: ? Ask about symptoms you have noticed. ? Ask about your overall health. This will include questions about any medications you are taking. ? Do a physical examination. ? Order some tests. These might include: ? A blood test to check for diabetes or other health issues that could be contributing to the problem. ? Urine testing. This could measure the flow of urine and the pressure on the bladder. ? A test of your neurological system (the brain, spinal cord and nerves). This is the system that senses the need to urinate. ? A bladder test to check whether it is emptying completely when you urinate. ? Cytoscopy. This test uses a thin tube with a tiny camera on it. It offers a look inside your urethra and bladder to see if there are problems. ? Imaging tests. You might be given a contrast dye and then asked to urinate. X-rays are taken to see how your bladder is working. TREATMENT It is important for you to be evaluated to determine if the amount or frequency that you have is unusual or abnormal. If it is found to be abnormal the cause should be determined and this can usually be found out easily. Depending upon the cause treatment could include medication, stimulation of the nerves, or surgery. There are not too many things that you can do as an individual to change your urinary (more content not included)... Normal [facility] Urology Phone Visit- [facility] 08-19-2020 Urology Phone Visit- Telehealth Chief Complaint Phone visit today. UA neg but Pt. has leukocytes HPI Staff Oxybutynin 5mg, Pt. states she has been taking 10mg at night. UA was neg but Pt. had leukocyts. Pain with urination:Moderate Pt. states having some burning. Blood in urine:No Incomplete bladder emptying:Moderate Pt. states she does not feel empty. Frequency:No Pt. states she can go every 2-3 hours or more only because she is taking Oxybutynin. Urgency:No Nocturia:Moderate 3x's Hesitancy:Moderate Stream:Moderate Pt. states having a weak stream. Leaking before getting to the restroom:No Urinary incontinence without sensory awareness:No Temporarily unable to restrain urination with body movement:Moderate Pt. states having leaking with body movement. Wearing pad/Depends:No Flank/Back pain:Moderate Pt. states having lower back pain. Abdominal pain:No History of Present Illness Reviewed last encounter. There have been no associated fever, chills, or blood in the urine. Pt. denies any pain/burning with urination at this time. Review of Systems ROS - Provider Constitutional: denies weight loss, denies hot flashes. Eyes: denies eye problems. Gastrointestinal: denies nausea, denies vomiting. Cardiovascular: denies chest pain or angina. Integumentary: no dryness Musculoskeletal: denies musculoskeletal symptoms. ENMT: denies otolaryngeal symptoms. Respiratory: no shortness of breath. Heme/Lymph: denies easy bleeding tendency, denies easy bruising tendency. Psychiatric: no confusion, no anxiety. Genitourinary: denies vaginal discharge, moderate incontinence, moderate dysuria, denies hematuria, moderate urinary frequency, denies amenorrhea, denies menorrhagia, denies abnormal bleeding, denies pelvic pain, denies genital sores, and denies decreased libido. Assessment/Plan This visit was conducted via phone communications from my office due to the restrictions of the COVID-19 pandemic. No physical exam was conducted due to audio only communication with the patient located at [facility] [id number], with no one else. If it is determined that the patient should be evaluated in person, the patient will be directed to the appropriate clinic or venue. The patient or their guardian verbally consented to this visit. Phone time was 11 minutes discussing health issues with counseling and coordination of care. 1. Nocturia (R35.1: Nocturia) 3x/night. Pt. has been taking Oxybutynin 10mg qd and have been doing Kegel exercises. Pt. to continue med. as directed and to call when refills are needed. I will be referring pt. for pelvic floor PT. All questions/concerns were discussed. Pt. acknowledges understanding. Ordered: [facility] Urology Procedure Order 2. Dysuria (R30.0: Dysuria) Moderate. Ordered: [facility] [place] Urology Procedure Order 3. Feeling of incomplete bladder emptying (R39.14: Feeling of incomplete bladder emptying) Pt. does not feel that she is emptying. Ordered: [facility] [place] Urology Procedure Order 4. Weak urine stream (R39.12: Poor urinary stream) Weak stream w/ moderate hesitancy. Ordered: [facility] [place] Urology Procedure Order 5. Interstitial cystitis (N30.10: Interstitial cystitis (chronic) without hematuria) Will schedule Cystoscopy. The risks and benefits for cystoscopy have been discussed. The risks include bleeding, infection, and irritation of the bladder and urinary channel, among others. The patient, after being informed of procedural details and after questions have been answered, wishes to proceed. Full informed consent has been obtained. Will order Local anesthesia. ABX sent to [facility] ? in [place]. Ordered: [facility] [place] Urology Procedure Order 6. Stress incontinence (N39.3: Stress incontinence (female) (male)) OAB (overactive bladder) (N32.81: Overactive bladder) I have reviewed the previous health record information and history for this pt. from Dr. Marmolejo. 50 YO female with reports of pain with delaying emptying, a new complaint although not a new symptom, perhaps more refined because of a discussion of her symptoms and my request to notice if her pain is worse with filling or delaying urination something she did notice. In the past she had declined a pelvic exam which was reasonable and was placed in a more OAB category rather than IC or female PP syndrome, but now with this new symptom and sensation of incomplete emptying and limited response to pelvic exercises like Kegel's with stress urinary incontinence and stress incontinence not severe enough to wear pads. At this time I recommended either a pelvic exam or a cystoscopy and I favored the later although last UA before this visit did not show blood. I explained this would allow visual assessment for cystoscopic bladder capacity as well as assessment of pain during filling and emptying and inflammatory wall changes. Patient who (more content not included)... Normal [facility] Comment on above: Result Comment: Elec tronically Signed By: Dawna Marmolejo MD\.br\Date and Time Signed: 08/19/20 08:53 EDT\.br\Electronically Co-Signed By: Christy Gill MA\.br\Date and Time Co-Signed: 08/19/20 08:44 EDT Coding Summary.on 08-12-2020 Coding Summary. CODING DATE: 020 FINAL [facility] STATUS: Home (Routine DC) PAYOR: Medicaid EAPG DESCRIPTION 0396 LEVEL I MICROBIOLOGY TESTS ADMIT DX: REASON FOR VISIT DX: R30.0 Dysuria FINAL DX: PRINCIPAL: R30.0 Dysuria SECONDARY: PYMT PROC EAPG STAT DESCRIPTION DOCTOR NAME DATE NOTE: The code number assigned matches the documented diagnosis and / or procedure in the patient's chart. However, the narrative phrase printed from the coding software may appear abbreviated, or result in slightly different terminology. Coded By: Demi Fried Date Saved: 08/12/2020 09:42 am Normal [facility] 08-11-2020 Forms [id number] :127 Normal [facility] C Urineon 08-09-2020 Bacteria identified Cx Nom (U) Microbiology PROCEDURE: Urine Culture [R1] SOURCE: U Random BODY SITE: COLLECTED DATE/TIME: 08/07/2020 15:46 EDT RECEIVED DATE/TIME: 08/07/2020 17:10 EDT START DATE/TIME: 08/07/2020 17:10 EDT FREE TEXT SOURCE: Francie BENSON, Dawna Marmolejo MD, Dawna Feldman FINAL REPORTS Final Report [] Verified Date/Time: 08/09/2020 11:56 EDT 500 cfu/ml Mixed skin contaminants Performing Locations R1: This test was performed at: [facility], [address] [place] [address], [facility] , , [facility] Comment on above: Performed By: #### [id number] ####[facility] [address] [place] [address] Ambulatory Clinical Summaryo n 08-07-2020 Ambulatory Clinical Summary {[id number]}CD:[id number] Brenda l [facility] Patient Educationon 08-07-20 20 Patient Education Kegel Exercises The goal of Kegel exercises is to isolate and exercise your pelvic floor muscles. These muscles act as a hammock that supports the rectum, vagina, small intestine, and uterus. As the muscles weaken, the hammock sags and these organs are displaced from their normal positions. Kegel exercises can strengthen your pelvic floor muscles and help you to improve bladder and bowel control, improve sexual response, and help reduce many problems and some discomfort during . Kegel exercises can be done anywhere and at any time. HOW TO PERFORM KEGEL EXERCISES 1. Locate your pelvic floor muscles. To do this, squeeze (contract ) the muscles that you use when you try to stop the flow of urine. You will feel a tightness in the vaginal area (women) and a tight lift in the rectal area (men and women). 2. When you begin, contract your pelvic muscles tight for 2?5 seconds, then relax them for 2?5 seconds. This is one set. Do 4?5 sets with a short pause in between. 3. Contract your pelvic muscles for 8?10 seconds, then relax them for 8?10 seconds. Do 4?5 sets. If you cannot contract your pelvic muscles for 8?10 seconds, try 5?7 seconds and work your way up to 8?10 seconds. Your goal is 4?5 sets of 10 contractions each day. Keep your stomach, buttocks, and legs relaxed during the exercises. Perform sets of both short and long contractions. Vary your positions. Perform these contractions 3?4 times per day. Perform sets while you are: ? ? Lying in bed in the morning. ? Standing at lunch. ? Sitting in the late afternoon. ? Lying in bed at night.? You should do 40?50 contractions per day. Do not perform more Kegel exercises per day than recommended. Overexercising can cause muscle fatigue. Continue these exercises for for at least 15?20 weeks or as directed by your caregiver. Document Released: 10/09/2013 Document Reviewed: 07/18/2013 ExitCare? Patient Information ?[address] [employer] [facility]. Family Medicine Overactive Bladder, Adult The bladder has two functions that are totally opposite of the other. One is to relax and stretch out so it can store urine (fills like a balloon), and the other is to contract and squeeze down so that it can empty the urine that it has stored. Proper functioning of the bladder is a complex mixing of these two functions. The filling and emptying of the bladder can be influenced by: ? The bladder. ? The spinal cord. ? The brain. ? The nerves going to the bladder. ? Other organs that are closely related to the bladder such as prostate in males and the vagina in females. As your bladder fills with urine, nerve signals are sent from the bladder to the brain to tell you that you may need to urinate. Normal urination requires that the bladder squeeze down with sufficient strength to empty the bladder, but this also requires that the bladder squeeze down sufficiently long to finish the job. In addition the sphincter muscles, which normally keep you from leaking urine, must also relax so that the urine can pass. Coordination between the bladder muscle squeezing down and the sphincter muscles relaxing is required to make everything happen normally. With an overactive bladder sometimes the muscles of the bladder contract unexpectedly and involuntarily and this causes an urgent need to urinate. The normal response is to try to hold urine in by stu the sphincter muscles. Sometimes the bladder contracts so strongly that the sphincter muscles cannot stop the urine from passing out and incontinence occurs. This kind of incontinence is called urge incontinence. Having an overactive bladder can be embarrassing and awkward. It can keep you from living life the way you want to. Many people think it is just something you have to put up with as you grow older or have certain health conditions. In fact, there are treatments that can help make your life easier and more pleasant. CAUSES Many things can cause an overactive bladder. Possibilities include: ? Urinary tract infection or infection of nearby tissues such as the prostate. ? Prostate enlargement. ? In women, multiple pregnancies or surgery on the uterus or urethra. ? Bladder stones, inflammation or tumors. ? Caffeine. ? Alcohol. ? Medications. For example, diuretics (drugs that help the body get rid of extra fluid) increase urine production. Some other medicines must be taken with lots of fluids. ? Muscle or nerve weakness. This might be the result of a spinal cord injury, a stroke, multiple sclerosis or Parkinson's disease. ? Diabetes can cause a high urine volume which fills the bladder so quickly that the normal urge to urinate is triggered very strongly. SYMPTOMS ? Loss of bladder control. You feel the need to urinate and cannot make your body wait. ? Sudden, strong urges to urinate. ? Urinating 8 or more times a day. ? Waking up to urinate two or more times a night. DIAGNOSIS To decide if you have overactive bladder, your (more content not included)... Normal [facility] Urology Office/Clinic Noteon 08-07-2020 Urology Office/Clinic Note Chief Complai nt STELLA Vera referred Pt. for urgency and frequency. HPI Staff STELLA Vera referred Pt. for urgency and frequency. PVR 20ml. Dysuria: yes Pt. states she is having burning. Incomplete bladder emptying: yes Pt. states she feels like she is not getting all the urine out. Hematuria: no Frequency: no Urgency: mild Nocturia: moderate every 2 hours Urge incontinence: no Stress incontinence: yes Incontinence without Sensory Awareness: no Abdominal pain: Pt. states she is getting pressure Flank pain: yes bilateral flank pain. History of Present Illness Tests Reviewed: Reviewed UA, Reviewed PVR 20mL I have reviewed the previous health record information and history for this patient from [employer] Hyacinth King There have been no associated fever, chills, flank pain, or blood in the urine. States last urinary tract infection was about 1 month ago. Review of Systems General: Fevers Denies , Weight Loss Denies , Weakness denies Hot Flashes Denies Skin: Rash Denies , Non-healed Skin Wound Denies Blood: Bruising Denies , Bleeding Denies , Anemia Denies Eyes: Eye Problems Denies Ears: Recent Hearing problems Denies Respiratory: Cough Denies , Coughing Blood Denies , Shortness of Breath Denies , Respiratory Infections Denies , Loud Snoring Denies Cardiovascular: Chest Pain Denies , Sensation of Irregular Heart Beat Denies Swelling in the legs Denies Pain in the legs with walking Denies Intestinal: Constipation Denies , Diarrhea Denies , Rectal Bleeding/Blood in Stool Denies , Hemorrhoids Denies , Indigestion Denies Nausea Denies , Vomiting Denies Genito-Urinary: Have you ever seen blood in your urine Denies , Have you ever been told there was blood in your urine Denies Vaginal Discharge Denies , Vaginal Bleeding Denies , Leaking urine(incontinence) Denies , Flank or Kidney pain Denies , Pain relating to your bladder filling or emptying Denies Burning with urination yes Urinary tract infection yes Kidney stone Denies Sexual difficulties Denies Muscle-skeletal: Joint pain Denies Back pain Denies Muscle Cramps Denies Nervous System: Headaches Denies Seizures Denies Blackouts Denies Numbness Denies Weakness in a certain area of your body Denies Tingling in a certain area of your body Denies Psychological: Confusion Denies , Anxiety Denies Other Free text: Physical Exam Vitals & Measurements HR: 62(Peripheral) RR: 16 BP: 116/77 HT: 162 cm HT: 162.0 cm WT: 77.4 kg WT: 77.4 kg BMI: 29.49 General Appearance: alert , no acute distress, well nourished, well developed female. Head: normocephalic . Eyes: normal orbit and globe. ENMT: normal examination of external ears. Chest: Lungs CTA, respirations non labored . Cardiovascular: regular rate and rhythm. Abdomen: soft, non distended, no tenderness, no mass or organomegaly, no hernia. Genitourinary: bladder nonpalpable, no flank tenderness. Lymph Nodes: unremarkable palpation of the cervical area. Skin: warm, dry, no bruising. Psychiatric: cooperative, affect appropriate for age, normal judgement, euthymic mood. Assessment/Plan 1. Dysuria (R30.0: Dysuria) Mild intermittent, Will send today's urine for a urine culture 2. Nocturia (R35.1: Nocturia) moderate q2 hours Start Oxybutynin 5mg BID, prn Discussed the medication side effects, and the patient will monitor closely for these, as well as for symptom improvement. If severe side effects occur, the medication should be stopped and the office notified. 3. Feeling of incomplete bladder emptying (R39.14: Feeling of incomplete bladder emptying) PVR 20mL 4. Urgency of urination (R39.15: Urgency of urination) mild intermittent 5. Frequency of urination (R35.0: Frequency of micturition) q 3 hours 6. OAB (overactive bladder) (N32.81: Overactive bladder) 7. Stress incontinence, female (N39.3: Stress incontinence (female) (male)) Intermittent 8. Abdominal pain (R10.9: Unspecified abdominal pain) 50 YO female with back pain not noted at this time to relate to her bladder filling and emptying in the clinical setting of nocturia q2hrs and daytime frequency [id number] with painful post void bladder sensation of needing to keep voiding. I sent her urine for culture. I started oxybutynin but felt Kegel exercises were the most likely management strategy to provide relief and offered referral to pelvic floor PT but she was able to perform office Kegel with me today. I offered pelvic exam given she is and a dropped bladder is a known cause of OAB but at this time I recommended a trial of OAB medication. Pt brought up back pain as we were exiting so I explained the overlap between OAB and Painful bladder syndrome. At this time I felt she fit more into the OAB scenario, denies gross hematuria, no relief with 4 rounds of antibiotics in the past including Cipro 2 courses, bactrim and macrobid. Follow-up With When Contact Information Dawna Marmolejo MD In [address] (more content not included)... Normal [facility] Comment on above: Result Comment: Elec tronically Signed By: Dawna Marmolejo MD\.br\Date and Time Signed: 08/07/20 15:54 EDT\.br\Electronically Co-Signed By: Radha Hare MA\.br\Date and Time Co-Signed: 08/07/20 15:44 EDT Vital Signs Date Time Vital Sign Value Performing Clinician Facility 08-12-2023 07:08-0400 Diastolic blood pressure 65 mm[Hg] Lex Salmon MD Work Phone: [facility] 08-12-2023 07:08-0400 Heart rate 77 /min Lex Salmon MD Work Phone: [facility] 08-12-2023 07:08-0400 SaO2% (BldA) [Mass fraction] 98 % Lex Salmon MD Work Phone: [facility] 08-12-2023 07:08-0400 Systolic blood pressure 132 mm[Hg] Lex Salmon MD Work Phone: [facility] 08-12-2023 06:48-0400 Respiratory rate 13 /min Lex Salmon MD Work Phone: [facility] 08-12-2023 00:25-0400 Body height 162.6 cm Lex Salmon MD Work Phone: [facility] 08-12-2023 00:25-0400 Body mass index (BMI) [Ratio] 28.01 kg/m2 Lex Salmon MD Work Phone: [facility] 08-12-2023 00:25-0400 Body temperature 97.59 [degF] Lex Salmon MD Work Phone: [facility] 08-12-2023 00:25-0400 Body weight 74.03 kg Lex Salmon MD Work Phone: [facility] 07-31-2023 14:27-0400 Body height 162.6 cm Nelsy Philipped 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 Work Phone: [facility] 07-31-2023 14:27-0400 Body weight 69.85 kg Nelsy Philipped 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 Work Phone: [facility] 07-31-2023 14:27-0400 Diastolic blood pressure 96 mm[Hg] Nelsy Wynnegand 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 Work Phone: [facility] 07-31-2023 14:27-0400 Heart rate 76 /min Nelsy Wynnegand 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 Work Phone: [facility] 07-31-2023 14:27-0400 Systolic blood pressure 136 mm[Hg] Nelsy Wynnegand 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 Work Phone: [facility] 06-13-2023 10:37-0400 Body height 162.56 cm Eliceo Willams Work Phone: [facility] DO Work Phone: 06-13-2023 10:37-0400 Body mass index (BMI) [Ratio] 27.46 kg/m2 Eliceo Willams Work Phone: [facility] DO Work Phone: 06-13-2023 10:37-0400 Body surface area Derived from formula 1.78 m2 Eliceo Willams Work Phone: [facility] DO Work Phone: 06-13-2023 10:37-0400 Body weight 72.58 kg Eliceo Willams Work Phone: [facility] DO Work Phone: 06-13-2023 10:37-0400 Diastolic blood pressure 70 mm[Hg] Eliceo Willams Work Phone: [facility] DO Work Phone: 06-13-2023 10:37-0400 Heart rate 70 /min Eliceo Willams Work Phone: [facility] DO Work Phone: 06-13-2023 10:37-0400 Systolic blood pressure 100 mm[Hg] Eliceo Willams Work Phone: [facility] DO Work Phone: 06-13-2023 10:37-0400 11 1 Eliceo Willams Work Phone: [facility] DO Work Phone: Comment on above: PHQ-9 06-05-2023 13:23-0400 Diastolic blood pressure 68 mm[Hg] DO Shannon Szymanskijerometomasa Work Phone: [facility] 06-05-2023 13:23-0400 Heart rate 72 /min DO Shannon Willams Work Phone: [facility] 06-05-2023 13:23-0400 Respiratory rate 18 /min DO Shannon Willams Work Phone: [facility] 06-05-2023 13:23-0400 SaO2% (BldA) [Mass fraction] 97 % DO Shannon Szymanskijerometomasa Work Phone: [facility] 06-05-2023 13:23-0400 Systolic blood pressure 129 mm[Hg] DO Shannon Szymanskijerometomasa Work Phone: [facility] 06-05-2023 09:32-0400 Body height 162.56 cm DO Shannon Szymanskijerometomasa Work Phone: [facility] 06-05-2023 09:32-0400 Body weight 73.9 kg DO Shannon Szymanskijerometomasa Work Phone: [facility] 06-05-2023 09:31-0400 Body temperature 97.5 [degF] DO Shannon Szymanskileigha Work Phone: [facility] 01-16-2023 13:18-0400 Body height 162.6 cm [facility] 01-16-2023 13:18-0400 Body weight 68.04 kg Pac [facility] 11-21-2022 08:00-0500 Body height 162.6 cm [facility] 2 Work Phone: [facility] 11-21-2022 08:00-0500 Body weight 64.86 kg [facility] 2 Work Phone: [facility] 10-11-2022 10:08-0500 Body height 162.6 cm Isra Masters DO Work Phone: [facility] 10-11-2022 10:08-0500 Body weight 78.02 kg Isra Masters DO Work Phone: [facility] 10-11-2022 10:08-0500 Diastolic blood pressure 97 mm[Hg] Isra Masters DO Work Phone: [facility] 10-11-2022 10:08-0500 Heart rate 89 /min Isra Masters DO Work Phone: [facility] 10-11-2022 10:08-0500 Systolic blood pressure 141 mm[Hg] Isra Masters DO Work Phone: [facility] 10-10-2022 14:30-0500 Body height 162.56 cm Annette Olexa Other [employer] Other 10-10-2022 14:30-0500 Body mass index (BMI) [Ratio] 28.66 kg/m2 Annette Olexa Other [employer] Other 10-10-2022 14:30-0500 Body weight 75.75 kg Annette Olexa Other [employer] Other 07-26-2022 11:13-0400 Body height 162.6 cm Mary Obrien MD Work Phone: [facility] 07-26-2022 11:13-0400 Body temperature 97.5 [degF] Mary Obrien MD Work Phone: [facility] 07-26-2022 11:13-0400 Body weight 77.56 kg Mary Obrien MD Work Phone: [facility] 07-26-2022 11:13-0400 Diastolic blood pressure 83 mm[Hg] Mary Obrien MD Work Phone: [facility] 07-26-2022 11:13-0400 Heart rate 95 /min Mary Obrien MD Work Phone: [facility] 07-26-2022 11:13-0400 SaO2% (BldA) [Mass fraction] 97 % Mary Obrien MD Work Phone: [facility] 07-26-2022 11:13-0400 Systolic blood pressure 110 mm[Hg] Mary Obrien MD Work Phone: [facility] 05-26-2022 11:45-0400 Body height 162.56 cm Annette Harris Other [employer] Other 05-26-2022 11:45-0400 Body mass index (BMI) [Ratio] 29.18 kg/m2 Annette Harris Other [employer] Other 05-26-2022 11:45-0400 Body weight 77.11 kg Annette Harris Other [employer] Other 05-12-2022 09:06-0400 Diastolic blood pressure 80 mm[Hg] Eliceo Willams Work Phone: [facility] [employer] 250 DO Work Phone: 05-12-2022 09:06-0400 Systolic blood pressure 126 mm[Hg] Eliceo Willams Work Phone: [facility] [employer] 250 DO Work Phone: 05-12-2022 08:57-0400 Body height 162.56 cm Eliceo Willams Work Phone: [facility] 250 DO Work Phone: 05-12-2022 08:57-0400 Body mass index (BMI) [Ratio] 29.87 kg/m2 Eliceo Willams Work Phone: [facility] 250 DO Work Phone: 05-12-2022 08:57-0400 Body surface area Derived from formula 1.84 m2 Eliceo Willams Work Phone: [facility] 250 DO Work Phone: 05-12-2022 08:57-0400 Body weight 78.93 kg Eliceo Willams Work Phone: [facility] DO Work Phone: 05-12-2022 08:57-0400 Diastolic blood pressure 80 mm[Hg] Eliceo Willams Work Phone: [facility] DO Work Phone: 05-12-2022 08:57-0400 Heart rate 68 /min Eliceo Willams Work Phone: [facility] DO Work Phone: 05-12-2022 08:57-0400 Systolic blood pressure 130 mm[Hg] Eliceo Willams Work Phone: [facility] DO Work Phone: 05-10-2022 12:30-0400 Body height 162.56 cm Allison Arita Other [employer] Other 05-10-2022 12:30-0400 Body mass index (BMI) [Ratio] 29.18 kg/m2 Allison Arita Other [employer] Other 05-10-2022 12:30-0400 Body temperature 97.3 [degF] Allison Arita Other [employer] Other 05-10-2022 12:30-0400 Body weight 77.11 kg Allison Arita Other [employer] Other 05-10-2022 12:30-0400 Respiratory rate 18 /min Allison Arita Other [employer] Other 05-10-2022 12:30-0400 SaO2% (BldA) [Mass fraction] 98 % Allison Arita Other [employer] Other 04-22-2022 12:04-0400 Body height 162.6 cm Jessi Sheets APRN.AUTOMOTIVE SERVICE TECHNICIAN Work Phone: [facility] 04-22-2022 12:04-0400 Body weight 77.56 kg Jessi Sheets 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 Work Phone: [facility] 04-22-2022 12:04-0400 Diastolic blood pressure 68 mm[Hg] Jessi Sheets 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 Work Phone: [facility] 04-22-2022 12:04-0400 Heart rate 76 /min Jessi Sheets APRN.AUTOMOTIVE SERVICE TECHNICIAN Work Phone: [facility] 04-22-2022 12:04-0400 SaO2% (BldA) [Mass fraction] 98 % Jessi Sheets 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 Work Phone: [facility] 04-22-2022 12:04-0400 Systolic blood pressure 104 mm[Hg] Jessi Sheets 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 Work Phone: [facility] 03-15-2022 16:30-0400 Body height 162.56 cm Annette Harris Other [employer] Other 03-15-2022 16:30-0400 Body mass index (BMI) [Ratio] 30.55 kg/m2 Annette Harris Other [employer] Other 03-15-2022 16:30-0400 Body weight 80.74 kg Annette Harris Other [employer] Other 03-15-2022 08:36-0400 Body height 162.6 cm Isra Masters DO Work Phone: [facility] 03-15-2022 08:36-0400 Body weight 83.01 kg Isra Galarzae DO Work Phone: [facility] 03-15-2022 08:36-0400 Diastolic blood pressure 87 mm[Hg] Isra Galarzae DO Work Phone: [facility] 03-15-2022 08:36-0400 Heart rate 85 /min Isra Galarzae DO Work Phone: [facility] 03-15-2022 08:36-0400 SaO2% (BldA) [Mass fraction] 100 % Isra Galarzae DO Work Phone: [facility] 03-15-2022 08:36-0400 Systolic blood pressure 133 mm[Hg] Isra Galarzae DO Work Phone: [facility] 03-14-2022 10:23-0400 Body height 162.6 cm Pacc 4 Work Phone: [facility] 03-14-2022 10:23-0400 Body temperature 97.2 [degF] Pacc 4 Work Phone: [facility] 03-14-2022 10:23-0400 Body weight 83.01 kg Pacc 4 Work Phone: [facility] 03-14-2022 10:23-0400 Diastolic blood pressure 76 mm[Hg] Pacc 4 Work Phone: [facility] 03-14-2022 10:23-0400 Heart rate 74 /min Pacc 4 Work Phone: [facility] 03-14-2022 10:23-0400 Respiratory rate 16 /min Pacc 4 Work Phone: [facility] 03-14-2022 10:23-0400 SaO2% (BldA) [Mass fraction] 98 % Pacc 4 Work Phone: [facility] 03-14-2022 10:23-0400 Systolic blood pressure 114 mm[Hg] Pacc 4 Work Phone: [facility] 02-18-2022 09:43-0400 Body height 162.6 cm Nelsy Philipped 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 Work Phone: [facility] 02-18-2022 09:43-0400 Body weight 80.29 kg Nelsy Philipped 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 Work Phone: [facility] 02-18-2022 09:43-0400 Diastolic blood pressure 70 mm[Hg] Nelsy Wynnegand 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 Work Phone: [facility] 02-18-2022 09:43-0400 Systolic blood pressure 110 mm[Hg] Nelsy Wynnegand 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 Work Phone: [facility] 02-08-2022 14:52-0400 Body height 162.6 cm Mary Obrien MD Work Phone: [facility] 02-08-2022 14:52-0400 Body weight 83.01 kg Mary Obrien MD Work Phone: [facility] 02-08-2022 14:52-0400 Diastolic blood pressure 76 mm[Hg] Mary Obrien MD Work Phone: [facility] 02-08-2022 14:52-0400 Heart rate 79 /min Mary Obrien MD Work Phone: [facility] 02-08-2022 14:52-0400 SaO2% (BldA) [Mass fraction] 97 % Mary Obrien MD Work Phone: [facility] 02-08-2022 14:52-0400 Systolic blood pressure 113 mm[Hg] Mary Obrien MD Work Phone: [facility] 02-08-2022 11:19-0400 Body weight 83.01 kg Magali Mitchell 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 Work Phone: [facility] 02-08-2022 11:19-0400 Diastolic blood pressure 76 mm[Hg] Magali Mitchell 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 Work Phone: [facility] 02-08-2022 11:19-0400 Heart rate 74 /min Magali Mitchell 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 Work Phone: [facility] 02-08-2022 11:19-0400 Systolic blood pressure 113 mm[Hg] Magali Mitchell 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 Work Phone: [facility] 10-20-2021 09:45-0500 Body height 162.56 cm Annette Harris Other [employer] Other 10-20-2021 09:45-0500 Body mass index (BMI) [Ratio] 31.41 kg/m2 Annette Harris Other [employer] Other 10-20-2021 09:45-0500 Body weight 83.01 kg Annette Harris Other [employer] Other 08-19-2021 17:10-0400 Body height 162.56 cm Erica Kingston Other [employer] Other 08-19-2021 17:10-0400 Body mass index (BMI) [Ratio] 31.24 kg/m2 Erica Kingston Other [employer] Other 08-19-2021 17:10-0400 Body temperature 97.3 [degF] Erica Kingston Other [employer] Other 08-19-2021 17:10-0400 Body weight 82.56 kg Erica Kingston Other [employer] Other 08-19-2021 17:10-0400 Diastolic blood pressure 82 mm[Hg] Erica Kumarmond Other [employer] Other 08-19-2021 17:10-0400 Respiratory rate 18 /min Erica Kingston Other [employer] Other 08-19-2021 17:10-0400 SaO2% (BldA) [Mass fraction] 98 % Erica Kingston Other [employer] Other 08-19-2021 17:10-0400 Systolic blood pressure 126 mm[Hg] Erica Kingston Other [employer] Other 08-13-2021 10:15-0400 Body height 162.56 cm Tita Ginty Other [employer] Other 08-13-2021 10:15-0400 Body mass index (BMI) [Ratio] 30.89 kg/m2 Tita Ginty Other [employer] Other 08-13-2021 10:15-0400 Body temperature 6 [degF] Tita Ginty Other [employer] Other 08-13-2021 10:15-0400 Body weight 81.65 kg Tita Ginty Other [employer] Other 08-13-2021 10:15-0400 SaO2% (BldA) [Mass fraction] 99 % Tita Ginty Other [employer] Other 07-28-2021 09:30-0400 Body height 162.56 cm Annette Harris Other [employer] Other 07-28-2021 09:30-0400 Body mass index (BMI) [Ratio] 30.89 kg/m2 Annette Harris Other [employer] Other 07-28-2021 09:30-0400 Body weight 81.65 kg Annette Harris Other [employer] Other Encounters Encounter Date Encounter Type Care Provider Facility Start: 10-10-2023 End: 10-10-2023 ambulatory PAM WANG Facility:[facility] Start: 10-06-2023 End: 10-06-2023 ambulatory Annette Harris Other [employer] Other Start: 10-06-2023 Telephone encounter [facility] Start: 10-03-2023 End: 10-04-2023 ambulatory ELICEO WILLAMS Not Available Start: 09-27-2023 End: 09-27-2023 ambulatory Pam Wang MD Work Phone: Urogynecology Comment on above: Worsening Start: 09-27-2023 Refill Doris Arias APRN.AUTOMOTIVE SERVICE TECHNICIAN Work Phone (unformatted): [phone] Urogynecology Comment on above: Med Change Request Start: 09-21-2023 End: 09-21-2023 ambulatory ELICEO WILLAMS Not Available Start: 09-11-2023 End: 09-11-2023 ambulatory PAM WANG Facility:[facility] Start: 08-23-2023 End: 08-23-2023 ambulatory GIANA [facility] Start: 08-12-2023 End: 08-12-2023 Emergency department patient visit LEX SALMON [facility] Start: 08-12-2023 End: 08-12-2023 Emergency department patient visit Lex Salmon MD Work Phone: [facility] Emergency Dept Comment on above: Upper abdominal pain (Primary Dx) Start: 08-09-2023 ambulatory Mary Obrien MD Work Phone: Colorectal Surgery Comment on above: Response Start: 08-07-2023 End: 08-07-2023 ambulatory Mary Obrien MD Work Phone: Colorectal Surgery Comment on above: Colon Start: 08-01-[address] Eliceo Willams Jr Facility: Start: 07-31-2023 End: 07-31-2023 ambulatory NELSY CHÁVEZ Facility:[facility] Start: 07-31-2023 End: 07-31-2023 Patient encounter procedure Nelsy Philippeludmila HAMMER Work Phone: URO/Gynecology Comment on above: Incomplete bladder e mptying (Primary Dx); Constipation, unspecified constipation type; Urinary urgency; Urinary frequency; Nocturia Start: 07-25-2023 End: [facility] Start: 07-17-2023 (Procedure) Win Harris [facility] Start: 07-17-2023 End: 07-17-2023 ambulatory Annette Harris Other [facility] [employer] Other Start: 07-12-2023 End: 07-12-2023 ambulatory Annette Harris Other [facility] [employer] Other Start: 07-12-2023 Telephone encounter [facility] Start: 06-13-2023 Office consultation new/estab patient 60 min Eliceo Willams Work Phone: -[facility] [facility] DO Work Phone: Start: 06-13-[address] Juan Anaya Facility: Start: 06-08-2023 End: 06-08-2023 ambulatory [facility] Start: 06-07-[address] Juan Anaya Facility:[id number] Start: 06-05-2023 End: 06-05-2023 Emergency department patient visit Shannon Willams Facility:[facility] Start: 06-05-2023 End: 06-05-2023 Emergency department patient visit DO Shannon Willams Work Phone: [facility] Work Phone: Start: 05-31-2023 End: 05-31-2023 ambulatory SIOMARA MONTAGUE [facility] Start: 05-28-2023 ambulatory Pam rios MD Work Phone: URO/Gynecology Comment on above: Problems with urinat ing Start: 05-22-2023 End: 05-22-2023 ambulatory [facility] Start: 05-17-2023 End: 05-17-2023 [facility] Start: 05-17-2023 End: 05-17-2023 ambulatory RADHA [facility] Start: 04-26-2023 End: 04-26-2023 ambulatory Annette Harris Other [employer] Other Start: 04-26-2023 Office outpatient visit 25 minutes Annette Harris [facility] [place] Start: 04-17-2023 ambulatory [facility] Start: 04-11-2023 Refill Isra S Clin e DO Work Phone: Gastroenterology Comment on above: Refill Request Start: 04-10-2023 ambulatory CARMEN [facility] Start: 04-04-2023 End: 04-05-[address] Isatu WILLAMS Facility:[facility] Start: 03-20-2023 ambulatory CARMEN [facility] Start: 03-19-2023 ambulatory Isra S Clin e DO Work Phone: Gastroenterology Comment on above: Stool sample results Start: 03-17-2023 End: 03-17-2023 ambulatory Niecy Duron Facility:[facility] Start: 03-17-2023 End: 03-17-2023 ambulatory DO Shannon Willams Work Phone: [facility] Work Phone: Start: 03-17-2023 End: 03-17-2023 Discharged Recurring DO Shannon Willams Work Phone: [facility] [place] Work Phone: Start: 03-16-2023 End: 03-16-2023 ambulatory ELICEO WILLAMS JR Facility:[facility] Start: 03-15-2023 Orders Only Isra Ila rios DO Work Phone: Gastroenterology Comment on above: Diarrhea due to power bsorption (Primary Dx) What lab? Start: 03-06-2023 End: 03-06-[address] Isatu WILLAMS Facility:[facility] Start: 03-06-2023 ambulatory CARMEN [facility] Start: 02-27-2023 ambulatory CARMEN [facility] Start: 02-21-2023 End: 02-22-[address] Isatu WILLAMS Facility:[facility] Start: 02-20-2023 ambulatory CARMEN [facility] Start: 02-19-2023 End: 02-19-[address] Isatu WILLAMS Facility:[facility] Start: 02-16-2023 End: 02-16-2023 ambulatory GIANA [facility] Start: 02-13-2023 ambulatory CARMEN [facility] Start: 02-06-2023 ambulatory CARMEN [facility] Start: 02-02-2023 End: 02-02-2023 ambulatory [facility] Start: 01-31-2023 End: 02-01-2023 ambulatory NIECY DURON Facility:[facility] Start: 01-27-2023 End: 01-27-[address] Isatu WILLAMS Facility:[facility] Start: 01-23-2023 ambulatory CARMEN KAILA [facility] Start: 01-20-2023 ambulatory Winston Ludmila chand DO Work Phone: General Surgery Comment on above: Clarification Start: 01-19-2023 ambulatory Winston Ludmila chand DO Work Phone: General Surgery Comment on above: General Start: 01-16-2023 Encounter for other preprocedural examination WINSTON HANNAH [facility] Start: 01-16-2023 Telephone encounter Mounika farrell PA-C Work Phone: Pre Anesthesia Comment on above: Appointment (Pt has not arrived for her 1 pm appointment) Start: 01-16-2023 End: 01-16[facility] Start: 01-16-2023 End: 01-16-2023 ambulatory WINSTON HANNAH Pre Anesthesia Comment on above: Preop examination (P rimary Dx); Nausea; CHUCKIE (obstructive sleep apnea); Mild persistent asthma without complication; Gastroesophageal reflux disease, unspecified whether esophagitis present; Gastroparesis Start: 01-16-2023 End: 01-16-2023 Preprocedural examination done Pac [facility] Pre Anesthesia Start: 01-11-2023 Telephone encounter Winston aceves DO Work Phone: General Surgery Comment on above: Schedule Procedure Start: 01-10-2023 End: 01-10-2023 ambulatory Winston Hannah DO Work Phone: General Surgery Comment on above: Pylorospasm (Primary Dx); Functional dyspepsia; Gastroesophageal reflux disease with esophagitis without hemorrhage Start: 01-10-2023 End: 01-10-2023 Telemedicine consultation with patient Winston Ludmila Hannah DO Work Phone: [facility] YANCI KIRKWOODBlanca Start: 01-06-2023 End: 01-06-2023 ambulatory ANNETTE SWANSON [facility] Start: 01-02-2023 End: 01-02-2023 ambulatory CARMEN DORSEY [facility] Start: 12-28-2022 ambulatory Yoni Tuttle MD Work Phone: NEUROLOGY Comment on above: No response Start: 12-26-2022 End: 12-26-2022 ambulatory WINSTON HANNAH Facility:[facility] Start: 12-26-2022 End: 12-26-2022 Subsequent hospital visit by physician [facility] Qb1 (I-Stat) Radiology Start: 12-23-2022 ambulatory Yoni Tuttle MD Work Phone: NEUROLOGY Comment on above: Cpap Start: 12-22-2022 End: 12-22-2022 ambulatory Winston Hannah DO Work Phone: General Surgery Comment on above: Pylorospasm (Primary Dx); Functional dyspepsia; Gastroesophageal reflux disease with esophagitis without hemorrhage Start: 12-22-2022 End: 12-22-2022 Telemedicine consultation with patient Winston Hannah DO Work Phone: [facility] Start: 12-21-2022 End: 12-22-2022 ambulatory SADE WILDE Facility: Start: 12-15-2022 End: 12-15-2022 ambulatory ELICEO WILLAMS Facility:[facility] Start: 12-15-2022 End: 12-15-2022 Manual pelvic examination Mary Obrien MD Work Phone: Colorectal Surgery Comment on above: Colonic inertia (Phoebe unique Dx); Pelvic floor dysfunction; Nausea; Gastroparesis Start: 12-15-2022 End: 12-15-2022 Telemedicine consultation with patient Mary Obrien MD Work Phone: TIA WILDE [facility] Start: 12-14-2022 ambulatory Yoni Tuttle MD Work Phone: NEUROLOGY Comment on above: Right number? Start: 12-12-2022 ambulatory CARMEN DORSEY [facility] Start: 12-09-2022 End: 12-09-2022 ambulatory Mary Obrien MD Work Phone: Colorectal Surgery Comment on above: Colon Start: 12-09-2022 Telephone encounter Mary brewer MD Work Phone: Colorectal Surgery Comment on above: Patient Question Start: 12-08-2022 Telephone encounter Isra Msaters DO Work Phone: Gastroenterology Comment on above: Results (Sigmoidosco py results; patient questions) Start: 12-07-2022 ambulatory Winston chand DO Work Phone: General Surgery Comment on above: Carafate Start: 12-06-2022 ambulatory Isra S Clin e DO Work Phone: Gastroenterology Comment on above: Results Start: 12-05-2022 ambulatory Winston chand DO Work Phone: [facility] Start: 12-02-2022 ambulatory Isra Thorpe Clin e DO Work Phone: [facility] Start: 12-02-2022 Telephone encounter Yoni Tuttle MD Work Phone: Neurology Comment on above: Returning Nurse Call Start: 12-01-2022 End: 12-02-2022 ambulatory NIECY DURON Facility: Start: 11-30-2022 End: 11-30-2022 ambulatory ELICEO WILLAMS Facility:[facility] Start: 11-30-2022 End: 11-30-2022 ambulatory Isra Masters DO Work Phone: Gastroenterology Comment on above: Chronic idiopathic c onstipation (Primary Dx); Nausea Start: 11-30-2022 End: 11-30-2022 Telemedicine consultation with patient Isra Masters DO Work Phone: [facility] Start: 11-30-2022 End: 11-30-2022 ambulatory CARMEN DORSEY [facility] Start: 11-24-2022 End: 11-25-2022 ambulatory Isra S Masters DO Work Phone: Gastroenterology Comment on above: SMART PILL RESULTS Approval for upcomin g pap titration test Start: 11-24-2022 Telephone encounter Yoni Tuttle MD Work Phone: Neurology Comment on above: Is PA Needed for PAP Titration Start: 11-23-2022 End: 11-23-2022 ambulatory CARMEN KAILA [facility] Start: 11-22-2022 Telephone encounter Isra Masters DO Work Phone: Gastroenterology Comment on above: Patient Update Start: 11-21-2022 End: 11-21-2022 ambulatory Yoni Tuttle MD Work Phone: Pre Anesthesia Comment on above: Pre-op exam (Primary Dx); Primary hypertension; Mild persistent asthma without complication; Gastroparesis; CHUCKIE (obstructive sleep apnea) Orders Start: 11-21-2022 Encounter for other preprocedural examination WINSTON HANNAH [facility] Start: 11-21-2022 End: 11-21-2022 Admission to establishment [facility] 2 Work Phone: [facility] Start: 11-21-2022 End: 11-21-2022 Preprocedural examination done [facility] 2 Work Phone: Pre Anesthesia Start: 11-18-2022 End: 11-18-2022 ambulatory ANNETTE SWANSON [facility] Start: 11-17-2022 End: 11-17-2022 ambulatory Annmarie Gillespie RNdigital account supervisor Start: 11-17-2022 Patient encounter procedure Annmarie Gillespie RN [facility] Start: 11-17-2022 End: 11-17-2022 Subsequent hospital visit by physician Capsule Work Phone: Gastroenterology Start: 11-16-2022 End: 11-16-2022 ambulatory Yoni Tuttle MD Work Phone: NEUROLOGY Comment on above: The delay Start: 11-15-2022 ambulatory Yoni Tuttle MD Work Phone: NEUROLOGY Comment on above: Labs Start: 11-14-2022 End: 11-15-2022 ambulatory NIECY DURON Facility:[facility] Start: 11-10-2022 Telephone encounter Annmarie Gillespie RNdigital account supervisor Comment on above: Preparations For Pro cedures Start: 11-10-2022 End: 11-11-2022 ambulatory NIECY DURON Facility:[facility] Start: 11-09-2022 Telephone encounter Yoni Tuttle MD Work Phone: Neurology Comment on above: Orders (SENT PATIENT S IRON RX ) Patient Update Start: 11-04-2022 ambulatory CARMEN DORSEY [facility] Start: 11-04-2022 End: 11-04-2022 ambulatory ANNETTE ALIE [facility] Start: 11-02-2022 Telephone encounter Yoni Tuttle MD Work Phone: Neurology Comment on above: Results - Sleep Stud y Start: 10-31-2022 ambulatory Yoni Tuttle MD Work Phone: NEUROLOGY Comment on above: Iron test Smart pill Start: 10-24-2022 Telephone encounter Isra Masters DO Work Phone: Gastroenterology Comment on above: Patient Question Start: 10-23-2022 [facility]: 10-20-2022 End: 10-20-2022 ambulatory Isra Masters DO Work Phone: Gastroenterology Comment on above: Smart pill Cpap Start: 10-19-2022 End: 10-19-2022 ambulatory JENNIFER GARCIA Facility:[facility] Start: 10-18-2022 Refill Isra rios DO Work Phone: Gastroenterology Comment on above: Refill Request Start: 10-17-2022 Telephone encounter Yoni Tuttle MD Work Phone: Neurology Comment on above: PAP Rx Faxed (DME: S [facility] ) Start: 10-17-2022 End: 10-18-[address] Isatu WILLAMS Facility:[facility] Start: 10-14-2022 End: 10-14-2022 ambulatory Annette Cartagena Facility:[facility] Start: 10-14-2022 End: 10-14-2022 ambulatory DO Shannon Willams Work Phone: [facility] Work Phone: Start: 10-14-2022 End: 10-14-2022 Discharged Recurring DO Shannon Willams Work Phone: [facility] [place] Work Phone: Start: 10-13-2022 End: 10-14-2022 ambulatory SADE Kenny [facility] Facility:[facility] Start: 10-13-2022 End: 10-14-2022 Encounter for preprocedural laboratory examination SADE Kenny [facility] Facility:[facility] Start: 10-11-2022 End: 10-11-2022 ambulatory Anntete Cartagena Other [employer] Other Start: 10-11-2022 Telephone encounter Annette Cartagena [facility] [employer] [facility] Start: 10-11-2022 End: 10-11-2022 Patient encounter procedure Isra Ila Masters Work Phone: Gastroenterology Comment on above: Gas bloat syndrome ( Primary Dx); Chronic idiopathic constipation; Gastroparesis Start: 10-10-2022 End: 10-10-2022 ambulatory Annette Cartagena Other [employer] Other Start: 10-10-2022 Office outpatient ne w 30 minutes Annette Cartagena [facility] Start: 10-06-2022 End: 10-06-2022 ambulatory Annette Harris Other [employer] Other Start: 10-06-2022 Patient encounter procedure Annette Harris [facility] [place] Start: 09-28-2022 Encounter for other preprocedural examination SADE Kenny [facility] Start: 09-28-2022 Encounter for preprocedural cardiovascular examination SADE Kenny [facility] Start: 09-26-2022 End: 09-27-2022 ambulatory SADE Kenny [facility] Facility:[facility] Start: 09-22-2022 Office outpatient vi sit 25 minutes Annette Harris [facility] [place] Start: 09-22-2022 Telephone encounter Annette BATES [facility] [place] Start: 09-22-2022 End: 09-22-2022 ambulatory DO Shannon Willams Work Phone: [employer] Other Start: 09-22-2022 End: 09-22-2022 Patient encounter procedure DO Shannon Willams Work Phone: [facility] Start: 09-14-2022 End: 09-14-2022 ambulatory Eliceo Szymanskileigha Other [employer] Other Start: 09-14-2022 Encounter by sierra Willams [facility] [place] Start: 09-14-2022 Office outpatient vi sit 15 minutes Annette Harris [facility] [place] Start: 09-14-2022 Telephone encounter Annette Harris [facility] Start: 08-16-2022 ambulatory Mary Obrien MD Work Phone: Colorectal Surgery Comment on above: CT results Ct scan result quest ion Start: 08-16-2022 E-mail encounter fro m caregiver Mary Obrien MD Work Phone: [facility] Start: 08-12-2022 End: 08-12-2022 Subsequent hospital visit by physician Ct Prep [facility] Start: 07-27-2022 End: 07-28-2022 ambulatory [facility] Facility: Start: 07-26-2022 Telephone encounter Isra Masters DO Work Phone: Gastroenterology Comment on above: Medication Problem; Medication 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 (PA for Dexlansoprazole) Start: 07-26-2022 End: 07-26-2022 Patient encounter procedure Mary Obrien MD Work Phone: Colorectal Surgery Comment on above: Follow-up examinatio n after colorectal surgery (Primary Dx); Periumbilical abdominal pain; Outlet dysfunction constipation; Colonic inertia Start: 06-08-2022 (Procedure) Short Annette Harris [facility] Start: 06-08-2022 End: 06-08-2022 ambulatory Annette Harris Other [employer] Other Start: 05-30-2022 Refill Mary Obrien MD Work Phone: Colorectal Surgery Comment on above: Refill Request Start: 05-26-2022 End: 05-26-2022 ambulatory Annette Harris Other [employer] Other Start: 05-26-2022 Office outpatient visit 25 minutes Annette Steven [facility] [place] Start: 05-12-2022 Office consultation new/estab patient 60 min Eliceo Willams Work Phone: [facility] DO Work Phone: Start: 05-10-2022 End: 05-10-2022 ambulatory Allison Lyla Other [facility] [employer] Other Start: 05-10-2022 Office outpatient visit 15 minutes Allison Lutzault [facility] Start: 05-03-2022 Telephone encounter Mary brewer MD Work Phone: Colorectal Surgery Comment on above: Banquet Coordinator - O ther Start: 04-26-2022 Telephone encounter Mary brewer MD Work Phone: Colorectal Surgery Comment on above: Patient Question Start: 04-22-2022 End: 04-22-2022 Patient encounter procedure Jessi Sheets 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 Work Phone: Colorectal Surgery Comment on above: Follow-up examinatio n after colorectal surgery (Primary Dx); Pelvic floor dysfunction Start: 04-17-2022 End: 04-17-2022 ambulatory CHASITY FREIRE . Facility: Start: 04-07-2022 Telephone encounter Rachael eKnny [facility] Department Comment on above: PostOp Follow-up Start: 03-22-2022 Telephone encounter Mary brewer MD Work Phone: Colorectal Surgery Comment on above: Patient Question Start: 03-15-2022 End: 03-15-2022 ambulatory Annette Harris Other [employer] Other Start: 03-15-2022 Office outpatient visit 15 minutes Annette Steven [facility] [place] Start: 03-15-2022 Telephone encounter Mary brewer MD Work Phone: Colorectal Surgery Comment on above: Banquet Coordinator - O ther Medication Preauthor ization (PA for Dexilant renewal) Outside Labs Results Start: 03-15-2022 End: 03-15-2022 Patient encounter procedure Isra Masters DO Work Phone: Gastroenterology Comment on above: Gastroesophageal ref lux disease, unspecified whether esophagitis present; Chronic idiopathic constipation Start: 03-14-2022 End: 03-14-2022 [place] [id number] Work Phone: Pre Anesthesia Comment on above: Preop examination (P rimary Dx); Attention to ileostomy [facility] Primary hypertension; Gastroparesis; Gastroesophageal reflux disease, unspecified whether esophagitis present; Mild persistent asthma without complication; Bipolar 1 disorder ([facility]); Obesity (BMI 30.0-34.9) Start: 03-14-2022 End: 03-14-2022 Preprocedural examination done [facility] 4 Work Phone: Pre Anesthesia Start: 02-28-2022 Telephone encounter Isra Masters DO Work Phone: Gastroenterology Comment on above: Appointment (for scr ipt refill) Start: 02-18-2022 End: 02-18-2022 Patient encounter procedure Nelsy Wynnepawel ROWANAUTOMOTIVE SERVICE TECHNICIAN Work Phone: URO/Gynecology Comment on above: Postoperative state (Primary Dx) Start: 02-11-2022 End: 02-11-2022 ambulatory Flaca Bartholomew PT [facility] Start: 02-11-2022 End: 02-11-2022 Follow-up encounter Flaca Bartholomew PT Work Phone: [facility] Physical Therapy Comment on above: Pelvic floor dysfunc tion (Primary Dx); Lack of coordination; Follow-up examination after colorectal surgery Start: 02-09-2022 (Procedure) Win Harris [facility] Start: 02-09-2022 End: 02-09-2022 ambulatory Annette Harris Other [employer] Other Start: 02-08-2022 End: 02-08-2022 Patient encounter procedure Mary Obrien MD Work Phone: Colorectal Surgery Comment on above: Follow-up examinatio n after colorectal surgery (Primary Dx) Post-operative state (Primary Dx); Yeast infection of the skin Start: 02-01-2022 Refill Isra S Clin e DO Work Phone: Gastroenterology Comment on above: Refill Request (dexl ansoprazole) Start: 01-31-2022 End: 01-31-2022 ambulatory Newton Woodward PT Work Phone: [facility] Start: 01-31-2022 End: 01-31-2022 Follow-up encounter Newton Woodward PT Work Phone: [facility] Physical Therapy Comment on above: Pelvic floor dysfunc tion (Primary Dx); Lack of coordination; Follow-up examination after colorectal surgery Start: 11-25-2021 End: 11-25-2021 ambulatory Annette Harris Other [employer] Other Start: 11-25-2021 Office outpatient visit 25 minutes Annette Harris [facility] [place] Start: 11-17-2021 End: 11-18-2021 ambulatory [facility] Start: 10-20-2021 End: 10-20-2021 ambulatory Annette Harris Other [employer] Other Start: 10-20-2021 Office outpatient visit 25 minutes Annette Harris [facility] [place] Start: 10-13-2021 (Procedure) Win Harris [facility] Start: 10-13-2021 End: 10-13-2021 ambulatory Annette Harris Other [employer] Other Start: 09-06-2021 Office outpatient visit 25 minutes Annette Harris [facility] [place] Start: 08-19-2021 Office outpatient visit 15 minutes Erica Kingston [facility] Start: 08-13-2021 Office outpatient visit 15 minutes Tita Daugherty [facility] Start: 08-12-2021 Office outpatient visit 25 minutes Annette Harris [facility] [place] Start: 07-28-2021 Office outpatient visit 25 minutes Annette Harris [facility] [place] Procedures Date Procedure Procedure Detail Performing Clinician Start: 08-12-2023 Assay of troponin quantitative Lev Ritter APRN [facility] Work Phone: Start: 08-12-2023 Ct abdomen & pelvis w/contrast material Lev Ritter APRN AUTOMOTIVE SERVICE TECHNICIAN Work Phone: Start: 08-12-2023 Urnls dip stick/tabl et reagent auto microscopy Lex Salmon MD Work Phone: Start: 08-12-2023 Basic metabolic pane l calcium total Lex Salmon MD Work Phone: Start: 08-12-2023 DARK GREEN TOP Lex buitrago MD Work Phone: Start: 08-12-2023 GOLD TOP Lex bacon MD Work Phone: Start: 08-12-2023 Hepatic function panel Lev Ritter APRN [facility] Work Phone: Start: 08-12-2023 LIGHT BLUE TOP Lex buitrago MD Work Phone: Start: 08-12-2023 RAINBOW DRAW Lex bacon MD Work Phone: Start: 08-12-2023 Urine test visual color cmprsn meths Lex Salmon MD Work Phone: Start: 08-12-2023 Ecg routine ecg w/le ast 12 lds trcg only w/o i&r Lex Salmon MD Work Phone: Start: 07-31-2023 Urnls dip stick/tabl et rgnt auto w/o microscopy Nelsy Chávez APRN.AUTOMOTIVE SERVICE TECHNICIAN Work Phone: Start: 06-05-2023 Plain chest X-ray DO Shannon Willams Work Phone: Start: 03-02-2023 Aerobic microbial culture DO Shannon Willams Work Phone: Start: 12-26-2022 Radiologic exam esop hagus single contrast study Winston Hannah DO Work Phone: Start: 09-22-2022 Plain X-ray of bilat eral shoulders DO Shannon Willams Work Phone: Start: 09-22-2022 X-ray of both knees DO Shannon Willams Work Phone: Start: 09-14-2022 Mammography Lex rincon MD Work Phone: Start: 03-02-2022 Lipid 1996 panel - S jay or Plasma Nelsy Chávez ASPARAGUS 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 Work Phone: Start: 02-08-2022 Urnls dip stick/tabl et rgnt auto w/o microscopy Magali Mitchell 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 Work Phone: Start: 12-16-2021 Antibody screen Comment on above: Performed By: #### T [id number] ####[place] [phone] Start: 10-15-2021 Antibody screen Comment on above: Performed By: #### T SCR30 ####[place] [phone] Start: 06-28-2021 Mammography Mary brewer MD Work Phone: Colonoscopy Eliceo R Dalia Work Phone: Hysterectomy Eliceo R Dalia Work Phone: Ligation of fallopian tube G eorbahman R Dalia Work Phone: Operation on colon Eliceo Willams Work Phone: Operation on rectum Eliceo R Dalia Work Phone: Operative procedure on foot Eliceo Willams Work Phone: Operative procedure on hand Eliceo Willams Work Phone: Operative procedure on knee Eliceo Asiya Willams Work Phone: Procedure on neck Eliceo roberson Work Phone: Repair of musculoten dinous cuff of shoulder Eliceo Willams Work Phone: Tonsillectomy and adenoidectomy Eliceo Willams Work Phone: Plan of Treatment Date Care Activity Detail Author Start: 06-22-2030 Administration of diphtheria + tetanus + acellular pertussis vaccine DTAP/TDAP/TD VACCINE (2 - Td or Tdap) [facility] Start: 06-22-2030 Urine microalbumin profile DTaP,Tdap,Td Vaccine (2 - Td or Tdap) [facility] Start: 12-05-2027 COLORECTAL CANCER SCREENING COLORECTAL CANCER SCREENING [facility] Start: 12-05-2027 SIGMOIDOSCOPY SIGMOIDOSCOPY [facility] Start: 03-02-2027 Lipid 1996 panel - Serum or Plasma Lipid Screening [facility] Start: 03-02-2027 LIPID SCREEN LIPID SCREEN [facility] Start: 04-05-2025 DIABETES SCREEN DIABETES SCREEN [facility] Start: 04-05-2025 Diabetes Screening Diabetes Screening [facility] Start: 03-14-2025 DIABETES SCREEN DIABETES SCREEN [facility] Start: 12-26-2024 DIABETES SCREEN DIABETES SCREEN [facility] Start: 09-27-2023 End: 12-27-2023 Bacteria identified in Urine by Culture URINE CULTURE Microbiology Routine Burning with urination Expected: 09/27/2023, Expires: 12/27/2023 [facility] Work Phone: Comment on above: Expected: 09/27/2023 , Expires: 12/27/2023 Start: 09-14-2023 Screening for malignant neoplasm of breast MAMMOGRAM [facility] Start: 08-01-2023 FUV, Provider: Juan Anaya, Status: Pen, Time: 11:00 AM FUV, Provider: Juan Anaya, Status: Pen, Time: 11:00 AM [facility] 320 DO Work Phone: Start: 07-07-2023 Covid-19 Vaccine () Covid-19 Vaccine () [facility] Start: 07-07-2023 Influenza vaccination [facility] Start: 07-07-2023 Influenza vaccinatio n given INFLUENZA VACCINE (#1) [facility] Start: 06-05-2023 [facility] Start: 04-22-2023 BP CONTROLLED (<130/80) BP CONTROLLED (<130/80) [facility] Start: 03-14-2023 BP CONTROLLED (<130/80) BP CONTROLLED (<130/80) [facility] Start: 02-18-2023 BP CONTROLLED (<130/80) BP CONTROLLED (<130/80) [facility] Start: 02-08-2023 BP CONTROLLED (<130/80) BP CONTROLLED (<130/80) [facility] Start: 01-18-2023 BP CONTROLLED (<130/80) BP CONTROLLED (<130/80) [facility] Start: 11-06-2022 DEPRESSION ASSESSMENT DEPRESSION ASS ESSMENT [facility] Start: 09-22-2022 [facility] Start: 08-02-2022 End: 08-25-2023 Ct abdomen & pelvis w/contrast material CT ABD/PEL W IVCON Radiology Routine Periumbilical abdominal pain Expected: 08/02/2022, Expires: 08/25/2023 [facility] Work Phone: Comment on above: Expected: 08/02/2022 , Expires: 08/25/2023 Start: 07-07-2022 Influenza vaccination C [facility] Start: 06-28-2022 Mammography [facility] Start: 2022 COVID-19 VACCINE (4 - Booster for Pfizer series) COVID-19 VACCINE (4 - Booster for Pfizer series) [facility] Start: 2022 SHINGRIX VACCINE (1 of 2) SHINGRIX VACCINE (1 of 2) [facility] Start: 2022 Zoster vaccine hzv l annika for subcutaneous use ZOSTER (SHINGLES) VACCINE (1 of 2) [facility] Start: 04-01-2022 End: 06-01-2022 CBC W Auto Differential panel - Blood CBC + DIFF Lab Routine Follow-up examination after colorectal surgery Expected: 04/01/2022, Expires: 06/01/2022 [facility] Work Phone: Comment on above: Expected: 04/01/2022 , Expires: 06/01/2022 Start: 04-01-2022 End: 06-01-2022 Comprehensive metabolic 2000 panel - Serum or Plasma COMP METABOLIC PANEL Lab Routine Follow-up examination after colorectal surgery Expected: 04/01/2022, Expires: 06/01/2022 [facility] Work Phone: Comment on above: Expected: 04/01/2022 , Expires: 06/01/2022 Start: 04-01-2022 End: 06-01-2022 TYPE AND SCREEN,30 DAY TYPE AND SCREEN,30 DAY Blood Bank Routine Follow-up examination after colorectal surgery Expected: 04/01/2022, Expires: 06/01/2022 [facility] Work Phone: Comment on above: Expected: 04/01/2022 , Expires: 06/01/2022 Start: 01-19-2022 COVID-19 VACCINE (4 - Booster for Pfizer series) COVID-19 VACCINE (4 - Booster for Pfizer series) [facility] Start: 01-19-2022 COVID-19 VACCINE (4 - Pfizer series) COVID-19 VACCINE (4 - Pfizer series) [facility] Start: 11-06-2021 DEPRESSION ASSESSMENT DEPRESSION ASS ESSMENT [facility] Start: 07-07-2021 Influenza vaccination INFLUENZA (#1) [facility] Start: 2017 COLOGUARD (FIT-DNA) COLOGUARD (FIT-D NA) [facility] Start: 2017 Colonoscopy COLONOSCOPY [facility] Start: 2017 COLORECTAL CANCER SCREENING COLORECTAL CANCER SCREENING [facility] Start: [address] COLONOGRAPHY [facility] Start: 2017 FECAL OCCULT BLOOD FECAL OCCULT BLOO D [facility] Start: 2017 LIPID SCREEN LIPID SCREEN [facility] Start: 2017 Screening for malign ant neoplasm of colon [facility] Start: 2017 SIGMOIDOSCOPY SIGMOIDOSCOPY [facility] Start: 2012 Mammography MAMMOGRAM [facility] Start: 10-11-2008 Hepatitis B Vaccine (3 of 3 - 19+ 3-dose series) Hepatitis B Vaccine (3 of 3 - 19+ 3-dose series) [facility] Start: 2002 HPV TESTING HPV TESTING [facility] Start: 1993 PAP TESTING PAP TESTING [facility] Start: 1991 Urine microalbumin profile [facility] Start: 1990 ANNUAL PCP TEAM CUSTOMIZER ALEKSANDAR DISEASE VISIT ANNUAL PCP TEAM CHRONIC DISEASE VISIT [facility] Start: 1990 ANNUAL WELLNESS VISIT ANNUAL WELLNES S VISIT [facility] Start: 1990 BP CONTROLLED (<130/80) BP CONTROLLE D (<130/80) [facility] Start: 1990 HEPATITIS C SCREENING HEPATITIS C SC REENING [facility] Start: 1990 HIV SCREENING HIV SCREENING [facility] Start: 1984 Adult depression screening assessment DEPRESSION SCREENING [facility] Start: 1984 Depression screening using PHQ-9 (Patient Health Questionnaire 9) score DEPRESSION SCREENING [facility] Start: 1978 PNEUMOCOCCAL (1 - PCV) PNEUMOCOCCAL (1 - PCV) [facility] Start: 1978 Pneumococcal vaccination Pneum ococcal Vaccine (1 - PCV) [facility] Start: 1972 HEPATITIS B (1 of 3 - 3-dose series) HEPATITIS B (1 of 3 - 3-dose series) [facility] Start: 1972 Hepatitis B Vaccine (1 of 3 - 3-dose series) Hepatitis B Vaccine (1 of 3 - 3-dose series) [facility] Start: 1972 HPV/COTEST HPV/COTEST [facility] Start: 1970 Screening for malign ant neoplasm of cervix [facility] 12 lead ECG EKG 12 lead ECG REYNA 08/12/2023 12:28 AM EDT [facility] Work Phone: CT Abdomen and Pelvi s W contrast IV CT Abdomen / Pelvis With IV Contrast ONLY Imaging STAT 08/12/2023 5:42 AM EDT [facility] End: 01-12-2024 EGD - THERAPEUTIC, EUS, OR TUBE INTERVENTIONS EGD - THERAPEUTIC, EUS, OR TUBE INTERVENTIONS Endoscopy Routine Gastroparesis 1 Occurrences starting 01/11/2023 until 01/12/2024 [facility] Work Phone: Comment on above: 1 Occurrences starti ng 01/11/2023 until 01/12/2024 FAT, FECAL QUAL FAT, FECAL QUAL Lab Routine Diarrhea due to malabsorption Ordered: 03/15/2023 [facility] Work Phone: Comment on above: Ordered: 03/15/2023 End: 10-11-2023 Gi transit & pres ravinder wireless capsule w/interp CAPSULE ENDOSCOPY SMART Endoscopy Routine Gastroparesis 1 Occurrences starting 10/11/2022 until 10/11/2023 [facility] Work Phone: Comment on above: 1 Occurrences starti ng 10/11/2022 until 10/11/2023 End: 12-17-2023 PAP TITRATION PSG (CPAP, BIPAP, ASV) PAP TITRATION PSG (CPAP, BIPAP, ASV) Procedures Routine CHUCKIE (obstructive sleep apnea) 1 Occurrences starting 11/17/2022 until 12/17/2023 [facility] Work Phone: Comment on above: 1 Occurrences starti ng 11/17/2022 until 12/17/2023 Patient Education Chest Pain, Adult ED [facility] Work Phone: Patient referral [facility] Work Phone: SARS-CoV-2 (COVID-19 ) RNA [Presence] in Respiratory specimen by JOSÉ MIGUEL with probe detection SELF CHECK COVID Microbiology Routine Follow-up examination after colorectal surgery Ordered: 02/09/2022 [facility] Work Phone: Comment on above: Ordered: 02/09/2022 End: 11-30-2023 SIGMOIDOSCOPY SIGMOIDOSCOPY Endoscopy Routine Chronic idiopathic constipation 1 Occurrences starting 11/30/2022 until 11/30/2023 [facility] Work Phone: Comment on above: 1 Occurrences starti ng 11/30/2022 until 11/30/2023 End: 08-12-2023 Troponin I.cardiac [Mass/volume] in Serum or Plasma Troponin I (One time) Lab Timed Once for 1 Occurrences starting 08/12/2023 until 08/12/2023 [employer] Work Phone: Comment on above: Once for 1 Occurrenc es starting 08/12/2023 until 08/12/2023 [facility] Procedures Routine Incomplete bladder emptying Urinary urgency Urinary frequency Nocturia Ordered: 07/31/2023 [facility] Work Phone: Comment on above: Ordered: 07/31/2023 [facility] Immunizations Immunization Date Immunization Notes Care Provider Shante rai 08-17-2022 influenza virus vaccine, unspecified formulation Nelsy Chávez APRN.CNP Work Phone: [facility] 11-24-2021 Pfizer-BioNTech COVID-19 Vacc 30 MCG/0.3ML Intramuscular Suspension Eliceo Willams Work Phone: [facility] [employer] 250 DO Work Phone: 08-19-2021 KENALOG - 10 mg Erica Dymon d Other [facility] [employer] Other 05-11-2021 Pfizer-BioNTech COVID-19 Vacc 30 MCG/0.3ML Intramuscular Suspension Eliceo Willams Work Phone: [facility] [employer] 250 DO Work Phone: 04-20-2021 Pfizer-BioNTech COVID-19 Vacc 30 MCG/0.3ML Intramuscular Suspension Eliceo Willams Work [facility] Work Phone: 09-02-2020 influenza, injectabl e, quadrivalent, preservative free Eliceo Willams Work Phone: [facility] [employer] DO Work Phone: 08-06-2020 influenza, injectabl e, quadrivalent, preservative free Eliceo Willams Work Phone: [facility] [employer] DO Work Phone: 06-22-2020 tetanus toxoid, redu nayeli diphtheria toxoid, and acellular pertussis vaccine, adsorbed Eliceo Willams Work Phone: [facility] [employer] DO Work Phone: 02-01-2020 Toradol per 15 mg Annette turpin Other [employer] Other 07-15-2018 influenza, seasonal, injectable, preservative free Eliceo Willams Work Phone: [facility] [employer] DO Work Phone: 07-14-2016 Rocephin 500 mg Annette ellis Other [employer] Other 05-12-2008 hepatitis B vaccine, adult dosage Eliceo Willams Work Phone: [facility] [employer] DO Work Phone: 04-11-2008 hepatitis B vaccine, adult dosage Eliceo Willams Work Phone: [facility] [employer] DO Work Phone: Payers Date Payer Category Payer Self-pay [id number] 2021 Medicaid [employer] [id number] 2021-Present [phone] [address] [place] [address] Medicaid [id number] 2021 Medicaid [id number]. [id number] 1972 Unknown [id number] 2.16.840.1.558228.3.579.2.176 1972 Unknown [id number] 2.16.840.1.473922.3.579.2.593 1972 Unknown [id number] 2.16.840.1.901583.3.579.2.593 1972 Unknown [id number] 2.16.840.1.602194.3.579.2.593 1972 Unknown [id number] 2.16.840.1.033787.3.579.2.593 1972 Unknown [id number] 2.16.840.1.687053.3.579.2.593 1972 Unknown [id number] 2.16.840.1.087141.3.579.2.593 1972 Unknown [id number] 2.16.840.1.328326.3.579.2.593 1972 Unknown [id number] 2.16.840.1.635767.3.579.2.593 1972 Unknown [id number] 2.16.840.1.825017.3.579.2.593 1972 Unknown [id number] 2.16.840.1.812447.3.579.2.593 1972 Unknown [id number] 2.16.840.1.145016.3.579.2.593 1972 Unknown [id number] 2.16.840.1.089460.3.579.2.593 1972 Unknown [id number] 2.16.840.1.360934.3.579.2.593 1972 Unknown [id number] 2.16.840.1.419220.3.579.2.593 1972 Unknown [id number] 2.16.840.1.595156.3.579.2.593 1972 Unknown [id number] 2.16.840.1.542870.3.579.2.593 1972 Unknown [id number] 2.16.840.1.766999.3.579.2.593 1972 Unknown [id number] 2.16.840.1.410178.3.579.2.297 1972 Unknown [id number] 2.16.840.1.078342.3.579.2.297 1972 Unknown [id number] 2.16.840.1.807090.3.579.2.356 1972 Unknown [id number] 2.16.840.1.199770.3.579.2.356 1972 Unknown [id number] 2.16.840.1.963737.3.579.2.356 1972 Unknown [id number] 2.16.840.1.694540.3.579.2.1259 1972 Unknown [id number] 2.16.840.1.417060.3.579.2.1259 1972 Unknown [id number] 2.16.840.1.245489.3.579.2.1259 1959 Medicaid [id number] 1959 Unknown [id number] Unknown Unknown [employer] [id number] Unknown [id number] 2.16.840.1.247441.3.579.2.531 Unknown [id number] 2.16.840.1.204179.3.579.2.531 Unknown [id number] 2.16.840.1.299960.3.579.2.531 Unknown [id number] 2.16.840.1.050767.3.579.2.531 Social History Date Type Detail Facility Start: 10-08-2020 End: 08-12-2023 Tobacco smoking status NHIS Never smoked tobacco [facility] Start: 10-08-2020 End: 08-12-2023 Tobacco use and exposure Smokeless tobacco non-user [facility] Start: 01-04-2022 End: 09-27-2023 Alcohol intake Lifetime non-drinker (finding) [facility] Start: 10-08-2020 History SDOH Alcohol Frequency 1 [facility] Start: 1970 Sex Assigned At Female C [facility] Start: 01-21-2022 End: 07-26-2022 Exposure to SARS-CoV-2 (event) Not sure [facility] Start: 10-08-2020 End: 07-31-2023 Sex Assigned At [facility] Start: 10-08-2020 End: 07-31-2023 No alcohol use No alcohol use [facility] Comment on above: 3 TEA WEEK; How often to you hav e a drink containing alcohol? Never [facility] Average Number of Drinks Not on file [facility] Start: 07-03-2021 Gender identity Identifies as female gender (finding) [facility] Start: 07-03-2021 Sexual orientation Heterosexual (finding) [facility] Start: 06-05-2023 Tobacco smoking status NHIS Smoker (finding) [facility] Start: 1970 Sex Assigned At Not on file [facility] Medical Equipment Procedure Code Equipment Code Equipment Origin al Text Equipment Identifier Dates Fibertak Zamora Self-Punching Knotless 2.6mm W/No 5 Suture [id number] Start: 10-14-2020 Fibertak Zamora Knotless 2.6mm [id number] Start: 10-14-2020 Zamora Swivelock C 4.75mm Biocomposite Peek 19.1mm Suture Closed Eyelet - [id number] Start: 10-14-2020 Sling Gynecare T vt Exact Gynecological Stress Urinary Incontinence - [id number] Start: 12-24-2021 DISC CERVICAL 13 [id number] MOBI-C FDA Start: 09-20-2017 DISC CERVICAL 13 [id number] MOBI-C FDA Start: 09-20-2017 DISC CERVICAL 13 [id number] MOBI-C FDA Start: 09-20-2017 DISC CERVICAL 13 [id number] MOBI-C FDA Start: 09-20-2017 Clinical Notes 10-27-2020 to 10-12-2023 Telephone Encounter - Hardik Poe LPN - 10/02/2023 4:00 PM ESTTelephone Encounter - Hardik Poe LPN - 09/29/2023 12:47 PM ESTTelephone Encounter - Lex Vieyra RN - 09/27/2023 10:54 AM EST Note Date & Type Note Facility 10-12-2023 Note Patient emailed stat ing she is finding another provider and will no longer be seen at this clinic. [facility] 10-12-2023 Note HNO ID: [id number] Author: Pam Wang MD Service: ? Author Type: Physician Type: Progress Notes Filed: 10/12/2023 9:42 AM Note Text: UNIVERSAL PROTOCOL / SAFETY CHECKLIST Procedure to be Performed: Diagnostic cystoscopy Indication: Urinary urgency, urinary frequency, overactive bladder, history of mid-urethral sling Sign In: A Moment of CARE was completed. Personnel directly involved with the procedure wore the appropriate PPE (Personal Protective Equipment). Patient/Surrogate Stated/Verified: PATIENT VERIFIED(optional for EMERGENT procedures): Patient name, Date of , Relevant allergies, and The intended procedure Time Out Communication: Intended patient and procedure match the source documents. Consent documented and matches the intended procedure. No relevant labs, photos, and/or imaging studies were applicable for review. No correct side/site applicable for marking and visibility. No implant(s) inserted. Sign Out: SIGN OUT (optional for EMERGENT procedures): No specimen collected. All instruments, equipment, possible retained foreign bodies accounted for. Post-procedure follow-up management communicated and Plan of Care Visit completed when applicable. PROCEDURE: Indication: Urinary urgency, urinary frequency, overactive bladder, history of mid-urethral sling. The patient understands the RBA of diagnostic cystoscopy including but not limited to UTI, hematuria, possible urinary retention Brief description of procedure: After obtaining written informed consent, a time out was performed. The patient was placed in dorsal lithotomy position, then prepped and draped in the usual sterile fashion. 2% urethral lidocaine jelly was introduced into the urethra and allowed to take analgesic effect. Anesthesia: Intraurethral Lidocaine jelly 10 mL. Video-assisted cystourethroscopy was performed using a 19 Finnish 70 and 30 degree rigid cystoscope with saline infusion. The cystoscope was advanced in retrograde fashion into the bladder. Next, the bladder was evaluated. Bilateral ureteral orifices were identified in normal orthotopic position. The bladder mucosa was evaluated in its entirety. There no bladder masses, stones, lesions or foreign bodies. Finally, the cystoscope was removed from the bladder and the urethra evaluated again. The patient tolerated the procedure well and was given an immediate dose of periprocedural antibiotics. There were no complications. Findings: Normal bladder mucosa. No evidence of inflammation, stones, neoplasia, bladder diverticulum, trabeculations, or other bladder abnormalities. The bladder trigone and ureteral orifices were seen and no abnormalities noted. Normal urethra without inflammation, diverticulum, or other abnormality. Complications: none Procedure Summary: Patient tolerated procedure well. Medications: None for procedure. IMPRESSION: Normal bladder and urethra PLAN: See progress note from today [facility] 10-10-2023 Note HNO ID: [id number] Author: Pam Wang MD Service: ? Author Type: Physician Type: Progress Notes Filed: 10/12/2023 9:42 AM Note Text: Female Pelvic Medicine AND Reconstructive Surgery Follow-Up Mary Leal is a 53 year old female, who presents for a follow-up of urinary urgency, urinary frequency. VV w/ Dr. Wang 08/07/23 Impression: Mary Leal is a 53 year old female s/p Anterior colporrhaphy, Posterior colporrhaphy, Placement of retropubic midurethral sling, Perineorrhaphy and Cystoscopy now with bothersome urinary retention, urgency, frequency and nocturia. Discussed with patient that given voiding dysfunction and history of MUS and colectomy, would recommend flurourodynamics and 3day voiding diary. Patient has had no improvement in symptoms with life style changes, OAB medications and intradetrusor Botox. We discussed neuromodulation for urinary issues. SNS is used to manage both OAB with leak and fecal incontinence as well as urinary retention. Discussed that SNS is now MRI-compatible although she would need to turn off device when she had MRI. Also discussed the need for two anesthetic procedures in the OR or PNE in the office followed by SNS in the OR. Pt would like to try PNE in the office. Will schedule and will plan for flurourodynamics and 3-day voiding diary before. Plan: Schedule flurourodynamics Fill out 3-day voiding diary Will schedule PNE aftre flurourodynamics and 3-day voiding diary History since last visit: Patient had VUDS with Dr. Jairon Lai which showed DO and smaller functional capacity bladder, elevated Pdet to void and lower flow. Patient was counseled about mid-urethral sling incision versus PNE. Urodynamics was unclear whether there was obvious SOTO and so presents today for cystoscopy. Of note pt also complaining of vaginal itching after recent antibiotics for UTI. Urodynamics Interpretation: A 7 Fr catheter was placed in a sterile fashion and a separate rectal catheter was placed for intra-abdominal pressure measurements. The study was then run to yield results as follows: Uroflow: Continuous and large voided volume PVR: Low CMG: The FS and FD: normal range Bladder compliance: normal Detrusor overactivity: phasic Stress incontinence:Nocm of H20 Total tolerated volume was 200+ Pressure Flow phase: Pdet max with flow was: elevated Abdominal strain:Yes EMG: DESD or abnormal patterns noted: No Impression: video: no reflux, BN open at rest, smooth bladder imp DO and smaller functional capacity bladder elevated Pdet to void lower flow I have confirmed and edited as necessary, the PFSH obtained by others. Pam Wang MD Garage Laborer offered: Patient declines. OBJECTIVE: BP 102/60 General: Well appearing, alert, in no acute distress, well-hydrated, well nourished. Abdomen: Abdomen soft, non-tender Pelvic: Ext. Genitalia: No lesions or other abnormalities Vagina: normal epithelium, scant amount of discharge noted Impression: Mray Leal is a 53 year old female s/p Anterior colporrhaphy, Posterior colporrhaphy, Placement of retropubic midurethral sling, Perineorrhaphy and Cystoscopy now with bothersome urinary retention, urgency, frequency and nocturia. Had discussion with patient regarding mid-urethral sling excision versus SNM. Patient reports urinary urgency, frequency and nocturia prior to MUS. On cystoscopy patent had normal bladder with no trabeculations, areas or erythema and normal urethra with easy insertion of cystoscopy. We discussed risk and benefits of sling excision including recurrence of symptoms and possible (but not guaranteed) improvement of urinary symptoms. We also discussed possible option of proceeding with PNE first to see if this improves voiding symptoms. Patient very hesitant to excise sling as she does not want BERT symptoms to return. Given that patient has low capacity bladder and DO on VUDS and was able to mostly empty the bladder (filled to 220cc and PVR 69cc), we will proceed with PNE and see if symptoms improve Plan: We discussed Mary's surgical options moving forward --- sling excision or SNS. Prior to SNS, will need PNE in the office and 3-day voiding diary beforehand. Mary would like to move forward with PNE. Quietyme packet given to patient today to review. My scheduling team will reach out to Mary with a date. Pt endorses burning and itching of her vagina. Terazol (Apply vaginally daily at bedtime for 7 days ) sent to Mary's pharmacy today. Pam Wang MD I spent a total of 20 minutes on the date of the service which included preparing to see the patient, [id number] patient care, completing clinical documentation, obtaining and/or reviewing separately obtained history, performing a medically appropriate examination, counseling and educating the patient/family/caregiver, and communicating with other HCP (more content not included)... [facility] 10-02-2023 Miscellaneous Notes Patient was called to find out if there was another pharmacy to send her medication for Diflucan. Patient stated to disregard this medication. Patient stated that she does not need this medication now and that she will be visiting her PCP tomorrow (10/03/23) to address her sickness that she had before going to [place]. She states that she was going to ask her doctor for antibiotics at that time related to her illness. It was explained to patient to call the office if symptoms reoccur and that this encounter will be closed today. Patient states understanding and will call our office if any questions or concerns should arise at that time. Hardik Poe LPN Medication requested: FLUCONAZOLE 150 MG TABLET MEREDITH: 09/27/2023 Doris Arias APRN.[facility] ([facility]) ASSESSMENT: Mary Leal is a 53 year old female with: (R35.0) Urinary frequency (primary encounter diagnosis) (B37.31) Ashley vaginitis PLAN: - Discussed r/b/a of empirical treatment of UTI with bactrim - Empirical treatment of yeast infection sent with diflucan, if symptoms persist, patient to make office visit for evaluation - If urinary symptoms do not resolve, patient to make office appointment for evaluation ------- Pharmacy comment: Product Backordered/Unavailable:FLUCONAZO LE 150MG IS ON BACKORDER, FLUCONAZOLE 150MG AND 200MG ARE IN STOCK. Future OV: 10/10/2023 w/ Dr. Pam Wang documented in this encounter [facility] 09-27-2023 Note HNO ID: [id number] Author: Doris Arias APRN.[facility] Service: ? Author Type: Nurse Practitioner Type: Progress Notes Filed: 09/27/2023 4:57 PM Note Text: UROGYN VIRTUAL VISIT PROGRESS NOTE This is a virtual visit. It required patient-provider interaction for the medical decision making as documented below. Patient identified by and name. I obtained consent from the patient to complete the visit virtually. Mary Leal is a 53 year old female seen for concerns of UTI. History since last visit: States since Monday she is voiding every 1 hour with urgency. Is also having some pressure with urinating. Denies blood in urine, fever, chills, nausea, vomiting. Does endorse back ache and some malodorous urine. Patient in [place], unable to come in for visit. Has concern for UTI. States after antibiotics she usually gets yeast infection that requires more than 1 dose of diflucan. Has cystoscopy scheduled on 10/10/[address] Wang. REVIEW OF SYSTEMS: ROS collected on 09/27/2023 by me; reviewed and confirmed by me today. 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, no vaginal discharge PHYSICAL EXAMINATION: VIDEO EXAM: (if completed, performed via video enabled technology) GENERAL: alert and appropriate, in no distress, well-hydrated, well nourished, and happy, smiling, interactive ASSESSMENT: Mary Leal is a 53 year old female with: (R35.0) Urinary frequency (primary encounter diagnosis) (B37.31) Ashley vaginitis PLAN: - Discussed r/b/a of empirical treatment of UTI with bactrim - Empirical treatment of yeast infection sent with diflucan, if symptoms persist, patient to make office visit for evaluation - If urinary symptoms do not resolve, patient to make office appointment for evaluation Medical Decision Making: Problems: Low: Acute, uncomplicated illness or injury Risk: Moderate: Drug management Medical Decision Making Level: 3 - Low Doris Arias APRN.[facility] 09-27-2023 Miscellaneous Notes Scheduled 10/10/23 for Diagnostic Cystoscopy with Dr. Wang. Last Virtual visit on 08/07/23: Impression: Mary Leal is a 53 year old female s/p Anterior colporrhaphy, Posterior colporrhaphy, Placement of retropubic midurethral sling, Perineorrhaphy and Cystoscopy now with bothersome urinary retention, urgency, frequency and nocturia. Discussed with patient that given voiding dysfunction and history of MUS and colectomy, would recommend flurourodynamics and 3day voiding diary. Patient has had no improvement in symptoms with life style changes, OAB medications and intradetrusor Botox. We discussed neuromodulation for urinary issues. SNS is used to manage both OAB with leak and fecal incontinence as well as urinary retention. Discussed that SNS is now MRI-compatible although she would need to turn off device when she had MRI. Also discussed the need for two anesthetic procedures in the OR or PNE in the office followed by SNS in the OR. Pt would like to try PNE in the office. Will schedule and will plan for flurourodynamics and 3-day voiding diary before. Plan: Schedule flurourodynamics Fill out 3-day voiding diary Will schedule PNE aftre flurourodynamics and 3-day voiding diary This was a Video visit, including two-way audio and video communication, in lieu of an in-person visit. The patient provided verbal consent to participate in the telehealth visit. I spent a total of 30 minutes on the date of the service which included preparing to see the patient, [id number] patient care, completing clinical documentation, obtaining and/or reviewing separately obtained history, counseling and educating the patient/family/caregiver, ordering medications, tests, or procedures, and communicating with other HCPs (not separately reported). Pam Wang MD 09/11/23 office visit with Jairon Lai MD (Urology): Impression: video: no reflux, BN open at rest, smooth bladder imp DO and smaller functional capacity bladder elevated Pdet to void lower flow Jairon Lai MD Urodynamics Interpretation Uroflow: curve normal in shape, voided volume is 95.2 cc, Q max is 14.4, PVR 0 Filling phase: Normal compliance, low capacity with first desire and a strong desire at 20 cc, able to fill to 220 cc, detrusor overactivity is present. No leakage noted. Initial attempt to void was at 81 cc with inability to void but there was rise in Pdet to about 20. Voiding phase: Pdet max of 53, Q max of 12, PVR 69 EMG: No abnormal activity noted Assessment: Small capacity bladder with evidence of DO. Elevated detrusor pressure with voiding and low flow consistent with obstruction Will discuss case with referring provider, may benefit from sling incision +/- discussion of SNM 09/12/[address] Wang: OUTGOING TELEPHONE CALL Telephone call to discuss results UDS results Discussed that would recommend cystoscopy and then will review option of MUS sling incision versus PNE/Interstim. Office will call to schedule cystoscopy. Urogynecology [facility] Main provided: Pam Wang Staff Physician, Department of Urogynecology and Pelvic Floor Disorders Worsening frequency and urgency of urination. Is a urine culture indicated? Please review/advise Lex Vieyra RN documented in this encounter [facility] 09-19-2023 Note Patient states she m istook this medication and has been off for 7 days. Restarting it at the 25mg dose. [facility] 09-11-2023 Note HNO ID: [id number] Author: Jairon Lai MD Service: ? Author Type: Physician Type: Progress Notes Filed: 09/11/2023 1:18 PM Note Text: [facility] RECONSTRUCTIVE SURGERY PHYSICIAN INTERPRETATION: Urodynamics Interpretation: A 7 Fr catheter was placed in a sterile fashion and a separate rectal catheter was placed for intra-abdominal pressure measurements. The study was then run to yield results as follows: Uroflow: Continuous and large voided volume PVR: Low CMG: The FS and FD: normal range Bladder compliance: normal Detrusor overactivity: phasic Stress incontinence:Nocm of H20 Total tolerated volume was 200+ Pressure Flow phase: Pdet max with flow was: elevated Abdominal strain:Yes EMG: DESD or abnormal patterns noted: No Impression: video: no reflux, BN open at rest, smooth bladder imp DO and smaller functional capacity bladder elevated Pdet to void lower flow Jairon Lai MD [facility] 09-11-2023 Note HNO ID: [id number] Author: Phil Beckford MD Service: ? Author Type: Fellow Type: Progress Notes Filed: 09/11/2023 1:18 PM Note Text: Urodynamics Interpretation Uroflow: curve normal in shape, voided volume is 95.2 cc, Q max is 14.4, PVR 0 Filling phase: Normal compliance, low capacity with first desire and a strong desire at 20 cc, able to fill to 220 cc, detrusor overactivity is present. No leakage noted. Initial attempt to void was at 81 cc with inability to void but there was rise in Pdet to about 20. Voiding phase: Pdet max of 53, Q max of 12, PVR 69 EMG: No abnormal activity noted Assessment: Small capacity bladder with evidence of DO. Elevated detrusor pressure with voiding and low flow consistent with obstruction Will discuss case with referring provider, may benefit from sling incision +/- discussion of SNM [facility] 09-01-2023 Note Spoke with patient. Canceling valium script. Increasing ativan dose to bid with current bottle for mgmt of anxiety. Appoitment on Saturday 09/08 - she will bring in ativan to count tablets. She states she has 20 left as of today. She should have 4 left at that appointment. [facility] 09-01-2023 Note Mary has been hav ing worsening panic and anxiety since her mother . She reports that Ativan isn't working. She has taken one extra ativan 4 days. Discussed she needs to take that medication only as prescribed. Discussed if she misuses her medication a second time she will be able to be prescribed the,. She would like to switch to Valium. Discussed disponing Ativan at pharmacy in order to pick remover 1 weeks worth of Valium 5mg bid #16, to get her to her next appointment on 09/08. 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 Respiratory: Negative. Cardiovascular: Negative. Psychiatric/Behavioral: dysphoric mood, irritability, insomnia Date of Telehealth Visit: 08/23/23 Chief Complaint Patient presents with Telehealth Audio/video Visit [email or web address] or Fall HPI The patient was notified that using 3rd green party telecommunication application (e.g., [employer]) is not HIPPA compliant and may carry some privacy risks. Yes The visit was conducted [id number] with the use of audio and video technology Beyond the Box between patient and provider for a virtual visit. Verbal consent to provide and bill this service was obtained on 08/23/23 No signature was obtained due to the COVID-19 pandemic. Patient Location: Patient Home I spent 30 minutes of total time on the day of the visit. This time was spent preparing for the visit, obtaining and reviewing any outside history/data, taking a history, performing an exam/evaluation, counseling and educating patient/family about the diagnosis and plan, performing medical decision making, referring to and communicating with other health care referrals, independently interpreting results and documenting in the EMR, and coordinating care. Please see the additional documentation in this note for specific details. 53-year-old female has medication management. She has been having increased anxiety and depression since last appointment. She has been taking her Ativan dailyHer mother is currently in hospice and she has a lot of other external stressors that are worsening her mood and anxiety. She also admits to irritability. She is not open to trying any SSRIs that she has tried on these in the past and they were ineffective. We discussed restarting on Lamictal to better address the symptoms, she is agreeable to this. She continues to have difficulty sleeping. She only sleeping 4 to 6 hours a night. She has difficulty with sleep onset and sleep maintenance. She is currently taking Lunesta and is not helping. We will try to get Quviviq approved, she is hoping this will help. We discussed that she is currently not using a CPAP and it is likely her insomnia will improve until she addresses the underlying issue. Current Presenting Symptoms/Problems: Mood: Good concentration, No anhedonia, No decreased need for sleep, No crying spells, and No excessive excitement Anxiety: No agoraphobia, No compulsions, and No generalized worry Trauma/Abuse: No abuse reported and No additional trauma noted Cognition: No agitation and No paranoia Sleep: No insomnia Lifestyle Habits: Structured routine of day Medication Compliance: Greater than 90% Onset/Timing: chronic Context: stable Severity: moderate Therapeutic Interventions Provided: Assessed Mood and Assessed Thinking Response to Intervention: Agreeable Overall Assessment of Progress: stable OARRS: No concerns noted Treatment Plan Revision Date: 08/23/23 Review Date: 08/23/24 Service Provider: Giana Morales Patient's Needs: mgmt of depression and anxiety Strengths or Assets: motivated Patient's Stated Goals: I want my irritabilty and anxiety to improve. Goal (Required): decrease symptoms of depression anad anxiety Required Objective: Patient will achieve/maintain a PHQ-9 score of Mild (0-4) over the next year. Mood Objective: Patient will report satisfaction with symptoms of depression or mood at each visit over the next 12 months. Anxiety Objective: Patient will report satisfaction with symptoms of anxiety at each visit over the next 12 months. General Objective: Patient will report adherence to medication recommendations at each visit over the next 12 months. Mental Status Exam Level of Alertness: alert Appearance: appears stated age and clean Eye Contact: normal Build/Stature: normal weight and normal height Posture: good posture Muscle Tone: rickey Gait and Ambulation: rickey Station: rickey Attitude Toward Examiner: cooperative and pleasant Behavior: normal Speech: clear and coherent reciprocal Language: expressive normal and receptive normal Mood: euthymic Affect: congruent Thought Process: coherent and goal-directed Thought Content: intact Orientation: oriented to person, oriented to place, and oriented to time Attention and Concentration: able to appropriately shift attention and able to focus Memory: able to comment on events and intact Abstraction: Proverbs: abstract Abstraction: Object Similarities: abstract Estimated Intelligence: average Insight: intact Judgement: social judgment intact and test judgment intact Reliability: reliable Plan: OCD MDD Inomnia Medications continue ativan 1mg daily prn for severe anxiety Continue lunesta to 3mg for sleep onset and sleep maintenance. Wear CPAP/ Insp (more content not included)... [facility] 08-12-2023 Emergency department Note Discharge, follow up, referral, and prescription information reviewed and explained; all questions and concerns addressed. Patient A/Ox3 in NAD, resp. easy unlabored upon discharge, escorted to exit by staff. [facility] 08-12-2023 Emergency department Note Discharge, follow up, referral, and prescription information reviewed and explained; all questions and concerns addressed. Patient A/Ox3 in NAD, resp. easy unlabored upon discharge, escorted to exit by staff. Report to Les GAMBINO Images from the original note were not included. ED Diagnosis and Summary 1. Upper abdominal pain ED Summary History Chief Complaint Patient presents with Abdominal Pain Past Medical, Family, Social, and or Surgical history in nursing notes, reviewed and included. Patient's medications and allergies were reviewed and updated as appropriate. Patient's medications, allergies, past medical, surgical, social and family histories were reviewed and updated as appropriate. Past Medical History: Diagnosis Date Anxiety Asthma GERD (gastroesophageal reflux disease) There are no problems to display for this patient. Past Surgical History: Procedure Laterality Date ANTERIOR CRUCIATE LIGAMENT REPAIR Left CARPAL TUNNEL RELEASE, OPEN Right CHOLECYSTECTOMY FISSURECTOMY ANAL FOOT FUSION HYSTERECTOMY RECONSTRUCTION CLEFT FOOT Left ROTATOR CUFF REPAIR Right TONSILLECTOMY The patient is a 53-year-old female who presents the emergency department to be seen and evaluated for abdominal pain. Patient has a history of GERD and gastritis. The patient reports that she developed this pain all of a sudden. She states that it woke her up from sleep. She states that she had a gnawing/burning pain in the epigastric region. She states that she noted she was wheezing after the pain started. She has a history of asthma and states that she did take her Trintellix inhaler this morning with improvement of her wheezing. She endorses nausea, but denies any episodes of emesis. She denies any diarrhea or constipation. She denies any fevers or chills. She denies any falls, injuries, or accidents which may have contributed to her symptoms. She reports that this feels like GERD, but we worse than usual. She rates her pain 8 out of 10 and describes it as burning in nature. She denies any chest pain or shortness of breath. She denies taking any medication for her symptoms prior to her arrival in the emergency department this morning. Review of Systems Constitutional: Negative for activity change, appetite change, chills, fatigue and fever. HENT: Negative for congestion. Eyes: Negative for photophobia and visual disturbance. Respiratory: Positive for wheezing. Negative for cough, chest tightness and shortness of breath. Cardiovascular: Negative for chest pain and leg swelling. Gastrointestinal: Positive for abdominal pain, heartburn and nausea. Negative for constipation, diarrhea and vomiting. Genitourinary: Negative for dysuria. Musculoskeletal: Negative for back pain, neck pain and neck stiffness. Skin: Negative for color change, pallor, rash and wound. Neurological: Negative for dizziness, syncope, weakness, numbness and headaches. Hematological: Negative for adenopathy. Does not bruise/bleed easily. Physical Exam ED Triage Vitals [08/12/23 0025] BP (!) 151/95 Heart Rate 75 Resp 18 Temp 97.6 F (36.4 C) Temp src FOREHEAD SpO2 95 % Weight 163 lb 3.2 oz (74 kg) Height 5' 4 (1.626 m) BMI (Calculated) 28 Physical Exam Vitals and nursing note reviewed. Constitutional: General: She is not in acute distress. Appearance: She is well-developed. She is not diaphoretic. HENT: Head: Normocephalic and atraumatic. Mouth/Throat: Pharynx: No oropharyngeal exudate. Eyes: Conjunctiva/sclera: Conjunctivae normal. Pupils: Pupils are equal, round, and reactive to light. Cardiovascular: Rate and Rhythm: Normal rate and regular rhythm. Pulmonary: Effort: Pulmonary effort is normal. No respiratory distress. Breath sounds: Normal breath sounds. No decreased breath sounds, wheezing, rhonchi or rales. Chest: Chest wall: No tenderness. Abdominal: General: Bowel sounds are normal. There is no distension. Palpations: Abdomen is soft. There is no mass. Tenderness: There is abdominal tenderness in the right upper quadrant, epigastric area and left upper quadrant. There is no right CVA tenderness, left CVA tenderness, guarding or rebound. Musculoskeletal: General: Normal range of motion. Cervical back: Normal range of motion and neck supple. Skin: General: Skin is warm and dry. Capillary Refill: Capillary refill takes less than 2 seconds. Findings: No rash. Neurological: Mental Status: She is alert and oriented to person, place, and time. Motor: No abnormal muscle tone. Psychiatric: Behavior: Behavior normal. ED Course Procedures Medical Decision Making DDx: GERD, gastroparesis, gastroenteritis, acute cholecystitis, pancreatitis, less likely IL The patient's initial and delta troponin are negative. EKG does not demonstrate any ischemic changes. Low suspicion for IL. Her urinalysis is negative for UTI. Urine test is negative. Patient's ALT and AST are slightly elevated at 50 and 59 respectively. Her total bilirubin is not elevated. Her other laboratory results are reassuring. CT of the abdomen pelvis were obtained to evaluate for acute intra-abdominal abnormalities. Patient CT scan is negative for any acute findings per the reading radiologist. Specifically, the patient's gallbladder and pancreas were within normal limits per the reading radiologist. Patient was given Pepcid, fluids, morphine, Zofran, IV Tylenol, and a GI cocktail were given to the patient with improvement of her symptoms. I do suspect a GERD flare as the etiology of her symptoms today. The patient is already taking a proton pump inhibitor at home daily. Pepcid and Carafate were added to her medication regimen. She is safe for discharge home with outpatient follow-up. She was instructed to call her chief contract officer and PCP to schedule follow-up appointments. She was instructed to return to the emergency department if she has any new or worsening symptoms. Patient agreeable plan of care. Return precautions discussed at bedside. Spoke with Dr. Salmon regarding patient. Physician to complete their own physical exam and evaluation. Collaboration performed between this GAS USAGE METER CLERK and physician regarding patient's plan of care. CT Abdomen / Pelvis With IV Contrast ONLY Preliminary Result No acute findings. Labs Reviewed CBC AND DIFFERENTIAL - Abnormal; Notable for the following components: Result Value MCH 26.5 (*) All other components within normal limits BASIC METABOLIC PANEL - Abnormal; Notable for the following components: CO2 32 (*) Glucose 104 (*) Anion Gap 1 (*) All other components within normal limits LIPASE - Abnormal; Notable for the following components: Lipase 11 (*) All other components within normal limits HEPATIC FUNCTION PANEL - Abnormal; Notable for the following components: ALT 50 (*) AST 59 (*) Total Bilirubin 0.1 (*) All other components within normal limits TROPONIN I SERIES - Normal TROPONIN I - Normal POCT ED/FC/SURG URINE - Normal URINALYSIS WITH REFLEX CULTURE RAINBOW DRAW Narrative: The following orders were created for panel order [place] Draw. Procedure Abnormality Status --------- ------ Gold Top[[id number]] Final result LIGHT BLUE TOP[[id number]] Final result Dark Green Top[[id number]] Final result Please view results for these tests on the individual orders. GOLD TOP LIGHT BLUE TOP DARK GREEN TOP TROPONIN I Records reviewed: Urogynecology telemedicine visit 08/07/2023 ENT visit 07/11/2023 Family medicine visit 07/06/2023 Lev Ritter APRN CNP 08/12/23722 Emily at bedside Ambulates to triage with C/O sudden epigastric gnawing, burning pain that woke her from sleep. Also reports wheezing. States nausea. Denies fever. Alert. Respirations easy and unlabored. Skin PWD. NAD noted. documented in this encounter [facility] 08-12-2023 Hospital Discharge instructions Lev Ritter APRN CNP - 08/12/2023 7:14 AM EDT Please call your primary care provider to schedule follow-up appointment. If you do not have one, please call the patient access center to establish care. If you develop any new or worsening symptoms including worsening pain or fevers, please return to the emergency department for reevaluation. The following attachments cannot be sent through Care Everywhere.Abdominal Pain (Israeli Italian)documented in this encounter [facility] 08-12-2023 Emergency department Note Report to Les GAMBINO [facility] 08-12-2023 Physician Emergency department Note Images from the original note were not included. ED Diagnosis and Summary 1. Upper abdominal pain ED Summary History Chief Complaint Patient presents with Abdominal Pain Past Medical, Family, Social, and or Surgical history in nursing notes, reviewed and included. Patient's medications and allergies were reviewed and updated as appropriate. Patient's medications, allergies, past medical, surgical, social and family histories were reviewed and updated as appropriate. Past Medical History: Diagnosis Date Anxiety Asthma GERD (gastroesophageal reflux disease) There are no problems to display for this patient. Past Surgical History: Procedure Laterality Date ANTERIOR CRUCIATE LIGAMENT REPAIR Left CARPAL TUNNEL RELEASE, OPEN Right CHOLECYSTECTOMY FISSURECTOMY ANAL FOOT FUSION HYSTERECTOMY RECONSTRUCTION CLEFT FOOT Left ROTATOR CUFF REPAIR Right TONSILLECTOMY The patient is a 53-year-old female who presents the emergency department to be seen and evaluated for abdominal pain. Patient has a history of GERD and gastritis. The patient reports that she developed this pain all of a sudden. She states that it woke her up from sleep. She states that she had a gnawing/burning pain in the epigastric region. She states that she noted she was wheezing after the pain started. She has a history of asthma and states that she did take her Trintellix inhaler this morning with improvement of her wheezing. She endorses nausea, but denies any episodes of emesis. She denies any diarrhea or constipation. She denies any fevers or chills. She denies any falls, injuries, or accidents which may have contributed to her symptoms. She reports that this feels like GERD, but we worse than usual. She rates her pain 8 out of 10 and describes it as burning in nature. She denies any chest pain or shortness of breath. She denies taking any medication for her symptoms prior to her arrival in the emergency department this morning. Review of Systems Constitutional: Negative for activity change, appetite change, chills, fatigue and fever. HENT: Negative for congestion. Eyes: Negative for photophobia and visual disturbance. Respiratory: Positive for wheezing. Negative for cough, chest tightness and shortness of breath. Cardiovascular: Negative for chest pain and leg swelling. Gastrointestinal: Positive for abdominal pain, heartburn and nausea. Negative for constipation, diarrhea and vomiting. Genitourinary: Negative for dysuria. Musculoskeletal: Negative for back pain, neck pain and neck stiffness. Skin: Negative for color change, pallor, rash and wound. Neurological: Negative for dizziness, syncope, weakness, numbness and headaches. Hematological: Negative for adenopathy. Does not bruise/bleed easily. Physical Exam ED Triage Vitals [08/12/23 0025] BP (!) 151/95 Heart Rate 75 Resp 18 Temp 97.6 F (36.4 C) Temp src FOREHEAD SpO2 95 % Weight 163 lb 3.2 oz (74 kg) Height 5' 4 (1.626 m) BMI (Calculated) 28 Physical Exam Vitals and nursing note reviewed. Constitutional: General: She is not in acute distress. Appearance: She is well-developed. She is not diaphoretic. HENT: Head: Normocephalic and atraumatic. Mouth/Throat: Pharynx: No oropharyngeal exudate. Eyes: Conjunctiva/sclera: Conjunctivae normal. Pupils: Pupils are equal, round, and reactive to light. Cardiovascular: Rate and Rhythm: Normal rate and regular rhythm. Pulmonary: Effort: Pulmonary effort is normal. No respiratory distress. Breath sounds: Normal breath sounds. No decreased breath sounds, wheezing, rhonchi or rales. Chest: Chest wall: No tenderness. Abdominal: General: Bowel sounds are normal. There is no distension. Palpations: Abdomen is soft. There is no mass. Tenderness: There is abdominal tenderness in the right upper quadrant, epigastric area and left upper quadrant. There is no right CVA tenderness, left CVA tenderness, guarding or rebound. Musculoskeletal: General: Normal range of motion. Cervical back: Normal range of motion and neck supple. Skin: General: Skin is warm and dry. Capillary Refill: Capillary refill takes less than 2 seconds. Findings: No rash. Neurological: Mental Status: She is alert and oriented to person, place, and time. Motor: No abnormal muscle tone. Psychiatric: Behavior: Behavior normal. ED Course Procedures Medical Decision Making DDx: GERD, gastroparesis, gastroenteritis, acute cholecystitis, pancreatitis, less likely IL The patient's initial and delta troponin are negative. EKG does not demonstrate any ischemic changes. Low suspicion for IL. Her urinalysis is negative for UTI. Urine test is negative. Patient's ALT and AST are slightly elevated at 50 and 59 respectively. Her total bilirubin is not elevated. Her other laboratory results are reassuring. CT of the abdomen pelvis were obtained to evaluate for acute intra-abdominal abnormalities. Patient CT scan is negative for any acute findings per the reading radiologist. Specifically, the patient's gallbladder and pancreas were within normal limits per the reading radiologist. Patient was given Pepcid, fluids, morphine, Zofran, IV Tylenol, and a GI cocktail were given to the patient with improvement of her symptoms. I do suspect a GERD flare as the etiology of her symptoms today. The patient is already taking a proton pump inhibitor at home daily. Pepcid and Carafate were added to her medication regimen. She is safe for discharge home with outpatient follow-up. She was instructed to call her chief contract officer and PCP to schedule follow-up appointments. She was instructed to return to the emergency department if she has any new or worsening symptoms. Patient agreeable plan of care. Return precautions discussed at bedside. Spoke with Dr. Salmon regarding patient. Physician to complete their own physical exam and evaluation. Collaboration performed between this GAS USAGE METER CLERK and physician regarding patient's plan of care. CT Abdomen / Pelvis With IV Contrast ONLY Preliminary Result No acute findings. Labs Reviewed CBC AND DIFFERENTIAL - Abnormal; Notable for the following components: Result Value MCH 26.5 (*) All other components within normal limits BASIC METABOLIC PANEL - Abnormal; Notable for the following components: CO2 32 (*) Glucose 104 (*) Anion Gap 1 (*) All other components within normal limits LIPASE - Abnormal; Notable for the following components: Lipase 11 (*) All other components within normal limits HEPATIC FUNCTION PANEL - Abnormal; Notable for the following components: ALT 50 (*) AST 59 (*) Total Bilirubin 0.1 (*) All other components within normal limits TROPONIN I SERIES - Normal TROPONIN I - Normal POCT ED/FC/SURG URINE - Normal URINALYSIS WITH REFLEX CULTURE RAINBOW DRAW Narrative: The following orders were created for panel order [place] Draw. Procedure Abnormality Status --------- ------ Gold Top[[id number]] Final result LIGHT BLUE TOP[[id number]] Final result Dark Green Top[[id number]] Final result Please view results for these tests on the individual orders. GOLD TOP LIGHT BLUE TOP DARK GREEN TOP TROPONIN I Records reviewed: Urogynecology telemedicine visit 08/07/2023 ENT visit 07/11/2023 Family medicine visit 07/06/2023 Lev Ritter APRN AUTOMOTIVE SERVICE TECHNICIAN 08/12/23722 [facility] 08-12-2023 Emergency department Note Emily at bedside [facility] 08-12-2023 Emergency department Triage note Ambulates to triage with C/O sudden epigastric gnawing, burning pain that woke her from sleep. Also reports wheezing. States nausea. Denies fever. Alert. Respirations easy and unlabored. Skin PWD. NAD noted. [facility] 08-07-2023 Note HNO ID: [id number] Author: Pam Wang MD Service: ? Author Type: Physician Type: Progress Notes Filed: 08/07/2023 3:46 PM Note Text: Virtual Female Pelvic Medicine AND Reconstructive Surgery Follow-Up TeleHealth - Follow-up Consultation Visit I have discussed the risks, benefits, and limitations of receiving care virtually with the patient. The patient expresses understanding and is willing to move forward. Mary Leal is a 53 year old female, who presents for a follow-up of urinary urgency, urinary frequency, uriary rete. Last visit (07/31/2023) Impression: Mary Leal is a 53 year old female with sensation of incomplete bladder emptying, urinary urgency, urinary frequency, nocturia, constipation. Discussed her symptoms and today's exam in detail. She has a complex health and surgical history. Of note, under a lot of stress; her father 1 year ago and her mother has severe cognitive decline d/t Alzheimers. She is seeing a counselor regularly. Will likely need repeat UDS to re-eval bladder function, and FU with Dr. Wang to discuss results + next steps. Of note, has had intradetrusor Botox in the past (prior to surgery); she believes she received 100U and did not think this was helpful Plan: Will rout to Dr. Wang as FYI and coordinate follow up Pt opts to stop Myrbetriq for now d/t side effects History since last visit: Pt reports most bothered by urinary retention. She usually voids every 3 hours during the day and 3 x per night. She has previously been on Mirabegron, Vesicare and had intradetrusor Botox in the past with no improvement in symptoms. After her visit with Nelsy Chávez, she stopped Mirabegron and has not noticed any difference. Urinary Incontinence: no Voiding Dysfunction: yes, feels like she is retaining and cannot empty Urinary Frequency: yes, every 1.5 hours at night Urinary Urgency: yes, sometimes Prolapse Symptoms: no Defecatory Dysfunction: yes, has constipation and defecatory dysfuncton Fecal Incontinence: no Abnormal Bleeding: no Pain: no Abnormal Vaginal Discharge: no ESL PROFESSOR 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 She has no history of an abnormal mammogram with cysts on US LMP: No LMP recorded. Patient has had a hysterectomy.; Menopause 3 years ago; hysterectomy in 2015: Menstrual history: NA; Deliveries: I have confirmed and edited as necessary, the PFSH obtained by others. Pam Wang MD Garage Laborer offered: Patient declines. OBJECTIVE (Virtual) There were no vitals taken for this visit. General: Well appearing, alert, in no acute distress, well-hydrated, well nourished. Impression: Mary Leal is a 53 year old female s/p Anterior colporrhaphy, Posterior colporrhaphy, Placement of retropubic midurethral sling, Perineorrhaphy and Cystoscopy now with bothersome urinary retention, urgency, frequency and nocturia. Discussed with patient that given voiding dysfunction and history of MUS and colectomy, would recommend flurourodynamics and 3day voiding diary. Patient has had no improvement in symptoms with life style changes, OAB medications and intradetrusor Botox. We discussed neuromodulation for urinary issues. SNS is used to manage both OAB with leak and fecal incontinence as well as urinary retention. Discussed that SNS is now MRI-compatible although she would need to turn off device when she had MRI. Also discussed the need for two anesthetic procedures in the OR or PNE in the office followed by SNS in the OR. Pt would like to try PNE in the office. Will schedule and will plan for flurourodynamics and 3-day voiding diary before. Plan: Schedule flurourodynamics Fill out 3-day voiding diary Will schedule PNE aftre flurourodynamics and 3-day voiding diary This was a Video visit, including two-way audio and video communication, in lieu of an in-person visit. The patient provided verbal consent to participate in the telehealth visit. I spent a total of 30 minutes on the date of the service which included preparing to see the patient, [id number] patient care, completing clinical documentation, obtaining and/or reviewing separately obtained history, counseling and educating the patient/family/caregiver, ordering medications, tests, or procedures, and communicating with other HCPs (not separately reported). aPm Wang MD [facility] 07-31-2023 Note HNO ID: [id number] Author: Nelsy Chávez APRN.AUTOMOTIVE SERVICE TECHNICIAN Service: ? Author Type: Nurse Practitioner Type: Progress Notes Filed: 07/31/2023 5:35 PM Note Text: Female Pelvic Medicine AND Reconstructive Surgery Follow-Up Mary Leal is a 53 year old female, who presents for a follow-up of Laparoscopic proctopexy and diverting loop ileostomy (Dr. Obrien) with concurrent Anterior olporrhaphy, Posterior colporrhaphy, Placement of retropubic midurethral sling, Perineorrhaphy (Dr. Wang) 12/24/2021. History since last visit: Has had issues with bladder emptying for several months. Had foot surgery in May, couldn't void after. Started Myrbetriq early July by OSH provider for bladder spasms, has had +constipation since starting medication. She is only able to fully empty with voids 1x per day; has a lot of frequency and urgency, but cannot go. Urinary Incontinence: no Voiding Dysfunction: yes, retaining most of the day except for one void each day Urinary Frequency: yes, every 1.5 hours at night Urinary Urgency: yes, sometimes Prolapse Symptoms: no Defecatory Dysfunction: yes, had scopes done last Monday; nothing found aside from gastritis and gastroparesis Fecal Incontinence: no Abnormal Bleeding: yes, from rectum, somewhat new Pain: no Abnormal Vaginal Discharge: no ESL PROFESSOR 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 She has no history of an abnormal mammogram with cysts on US LMP: No LMP recorded. Patient has had a hysterectomy.; Menopause 3 years ago; hysterectomy in 2015: Menstrual history: NA; Deliveries: I have confirmed and edited as necessary, the PFSH obtained by others. Nelsy Chávez APRN.AUTOMOTIVE SERVICE TECHNICIAN Garage Laborer offered: Patient declines. OBJECTIVE: There were no vitals taken for this visit. General: Well appearing, alert, in no acute distress, well-hydrated, well nourished. and tearful at times Abdomen: Abdomen soft, non-tender Pelvic: Ext. Genitalia: No lesions or other abnormalities Vagina: normal epithelium POP-Q: Prolapse Noted: No Cervix: surgically absent Urethra: Normal Bimanual: No tenderness, No masses, no bladder pain Rectovaginal: Deferred UA results: normal Bladder scan: Nurse performed and PVR 0 mL. Voided volume not measured. Impression: Mary Leal is a 53 year old female with sensation of incomplete bladder emptying, urinary urgency, urinary frequency, nocturia, constipation. Discussed her symptoms and today's exam in detail. She has a complex health and surgical history. Of note, under a lot of stress; her father 1 year ago and her mother has severe cognitive decline d/t Alzheimers. She is seeing a counselor regularly. Will likely need repeat UDS to re-eval bladder function, and FU with Dr. Wang to discuss results + next steps. Of note, has had intradetrusor Botox in the past (prior to surgery); she believes she received 100U and did not think this was helpful Plan: Will rout to Dr. Wang as FYI and coordinate follow up Pt opts to stop Myrbetriq for now d/t side effects Nelsy Chávez APRN.AUTOMOTIVE SERVICE TECHNICIAN I spent a total of 45 minutes on the date of the service which included preparing to see the patient, [id number] patient care, completing clinical documentation, performing a medically appropriate examination, counseling and educating the patient/family/caregiver and ordering medications, tests, or procedures. [facility] 07-31-2023 History of Present illness Narrative Female Pelvic Medicine & Reconstructive Surgery Follow-Up Mary Leal is a 53 year old female, who presents for a follow-up of Laparoscopic proctopexy and diverting loop ileostomy (Dr. Obrien) with concurrent Anterior olporrhaphy, Posterior colporrhaphy, Placement of retropubic midurethral sling, Perineorrhaphy (Dr. Wang) 12/24/2021. History since last visit: Has had issues with bladder emptying for several months. Had foot surgery in May, couldn't void after. Started Myrbetriq early July by OSH provider for bladder spasms, has had +constipation since starting medication. She is only able to fully empty with voids 1x per day; has a lot of frequency and urgency, but cannot go. Urinary Incontinence: no Voiding Dysfunction: yes, retaining most of the day except for one void each day Urinary Frequency: yes, every 1.5 hours at night Urinary Urgency: yes, sometimes Prolapse Symptoms: no Defecatory Dysfunction: yes, had scopes done last Monday; nothing found aside from gastritis and gastroparesis Fecal Incontinence: no Abnormal Bleeding: yes, from rectum, somewhat new Pain: no Abnormal Vaginal Discharge: no ESL PROFESSOR 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 She has no history of an abnormal mammogram with cysts on US LMP: No LMP recorded. Patient has had a hysterectomy.; Menopause 3 years ago; hysterectomy in 2014: Menstrual history: NA; Deliveries: I have confirmed and edited as necessary, the PFSH obtained by others. Nelsy Chávez APRN.AUTOMOTIVE SERVICE TECHNICIAN Garage Laborer offered: Patient declines. OBJECTIVE: There were no vitals taken for this visit. General: Well appearing, alert, in no acute distress, well-hydrated, well nourished. and tearful at times Abdomen: Abdomen soft, non-tender Pelvic: Ext. Genitalia: No lesions or other abnormalities Vagina: normal epithelium POP-Q: Prolapse Noted: No Cervix: surgically absent Urethra: Normal Bimanual: No tenderness, No masses, no bladder pain Rectovaginal: Deferred UA results: normal Bladder scan: Nurse performed and PVR 0 mL. Voided volume not measured. Impression: Mary Leal is a 53 year old female with sensation of incomplete bladder emptying, urinary urgency, urinary frequency, nocturia, constipation. Discussed her symptoms and today's exam in detail. She has a complex health and surgical history. Of note, under a lot of stress; her father 1 year ago and her mother has severe cognitive decline d/t Alzheimers. She is seeing a counselor regularly. Will likely need repeat UDS to re-eval bladder function, and FU with Dr. Wang to discuss results + next steps. Of note, has had intradetrusor Botox in the past (prior to surgery); she believes she received 100U and did not think this was helpful Plan: Will rout to Dr. Wang as FYI and coordinate follow up Pt opts to stop Myrbetriq for now d/t side effects Nelsy Chávez APRN.CNP I spent a total of 45 minutes on the date of the service which included preparing to see the patient, [id number] patient care, completing clinical documentation, performing a medically appropriate examination, counseling and educating the patient/family/caregiver and ordering medications, tests, or procedures. documented in this encounter [facility] 07-25-2023 Note Patient: Mary arriaza Procedure Summary Date: 07/25/23 Room / Location: [facility] Main OR Anesthesia Start: 1105 Anesthesia Stop: 1214 Procedures: EGD DIAGNOSTIC COLONOSCOPY Diagnosis: Gastroesophageal reflux disease without esophagitis Nausea Diarrhea, unspecified type Scheduled Providers: Matteo Quionnes MD; Blanquita Ramirez MD Responsible Provider: Blanquita Ramirez MD Anesthesia Type: MAC ASA Status: 3 Anesthesia Type: MAC Vitals Value Taken Time BP 116/73 07/25/23 1300 Temp 36.1 ???C (97 ???F) 07/25/23 1211 Pulse 56 07/25/23 1300 Resp 18 07/25/23 1300 SpO2 100 % 07/25/23 1300 Anesthesia Post Evaluation Patient location during evaluation: bedside Patient participation: complete - patient participated Level of consciousness: awake and alert Pain score: 1 Pain management: adequate Airway patency: patent Cardiovascular status: acceptable Respiratory status: acceptable Hydration status: acceptable Patient is hemodynamically stable and is able to be discharged from PACU per anesthesia protocol. No notable events documented. [facility] 07-25-2023 Note Patient: Mary arriaza Procedure Summary Date: 07/25/23 Room / Location: [facility] Main OR Anesthesia Start: 1104 Anesthesia Stop: Procedures: EGD DIAGNOSTIC COLONOSCOPY Diagnosis: Gastroesophageal reflux disease without esophagitis Nausea Diarrhea, unspecified type Scheduled Providers: Matteo Quinones MD; Blanquita Ramirez MD Responsible Provider: Blanquita Ramirez MD Anesthesia Type: MAC ASA Status: 3 Anesthesia Post Transport [facility] Patient Monitor: direct observation Transport: uneventful Patient condition is: stable [facility] 07-25-2023 Note Patient: Mary arriaza Procedure Information Date/Time: 07/25/23 1100 Scheduled providers: Matteo Quinones MD; Blanquita Ramirez MD Procedures: EGD DIAGNOSTIC COLONOSCOPY Location: [facility] Main OR Relevant Problems Anesthesia (+) CHUCKIE (obstructive sleep apnea) Cardio (+) Essential (primary) hypertension (+) HTN (hypertension) GI (+) Gastro-esophageal reflux disease without esophagitis Neuro/Psych (+) Chronic cluster headache, not intractable (+) Headache (+) Tension headache Pulmonary (+) Asthma Other (+) Arthritis (+) Arthritis of left foot (+) Arthritis of right acromioclavicular joint (+) Cervical arthritis (+) Impingement syndrome of right shoulder Clinical information reviewed: Tobacco Allergies Meds Med Hx Surg Hx Fam Hx Soc Hx Physical Exam Airway Mallampati: II TM distance: >3 FB Neck ROM: full Cardiovascular - normal exam Comments: Negative cardiag workup recently per patient as she has a strong family history of CAD Dental Pulmonary Comments: Asthma, mild, well controlled. No rescue inhaler use in the past 6 months. Abdominal Other findings: Scopes for chronic nausea. No known gastroparesis or nausea associated diagnosis. Sp Colectomy. Anesthesia Plan ASA 3 MAC intravenous induction Postoperative administration of opioids is intended. Anesthetic plan and risks discussed with patient. Use of blood products discussed with patient who. Plan discussed with resident, CAA and ACCOUNT REVIEW SPECIALIST. Additional Equipment Requests [facility] 07-17-2023 Note Medications to take AM day of procedure with sips water only: Atenolol Ropinirole inhaler Medication Hold instructions: NSAIDs (Motrin,Aleve): 5 days prior to procedure Vitamins/Supplements: 5 days prior to procedure IF YOU ARE GOING HOME AFTER YOUR SURGERY OR PROCEDURE, FOR YOUR SAFETY, YOUR SURGERY WILL BE CANCELLED IF BOTH OF THE FOLLOWING ARE NOT AVAILABLE: An adult mobile lounge driver or operator over the age of 18, that can receive information about your care after surgery, and drive you home. A responsible adult to stay with you for 24 hours in case of an emergency. Can be same as above. The highest risk of complications is within the first 24 hours after sedation/anesthesia. Nothing to eat or drink after midnight the night before surgery. This includes gum, candy, mints, and lozenges. No alcohol, marijuana, or tobacco products including vaping for 24 hours. Please brush your teeth; don't swallow the toothpaste or water. If you use dentures, wear them but do not use paste. Please leave any other removable dental hardware at home. Do not put in contact lenses. Do not wear perfume, make-up, nail english, or lotions on the day of your surgery or procedure. Follow skin-prep/wipe instructions as below if required. Bring with you: *Insurance card *Photo ID *Medication list *Co-pay for visit/prescriptions If applicable: *Rescue inhalers *Green bracelet from lab *CPAP or BiPAP machine, if staying overnight *Any braces, splints, or equipment ordered preoperatively *Remote controls for implanted devices Leave at home: *Purse/Wallet/Cox- unless needed for co-pay *Cell phone (can leave with family/friend or place in locker if needed) *Jewelry (including piercings and wedding bands) *If not possible, ask the person who is waiting with you to keep them Children under the age of 12 will not be allowed into patient care areas. We will call you between 3pm and 4pm the day before your surgery to give you an arrival time. If you do not receive this call, have any questions, or need to make any changes, please call [phone]. Notify your surgeon if you develop any illness such as a cold, cough, fever, sore throat or vomiting between now and your surgery. Thank you for entrusting us with your care. [facility] Surgical Services Team [facility] 06-08-2023 Note Psych Progress Note Time In: 925 Time Out: 940 HPI Present at Visit: basia Hernandez, HUMAN RESOURCES VICE PRESIDENT student Location of Service: Office Review of Systems Constitutional: Negative. Respiratory: Negative. Cardiovascular: Negative. Psychiatric/Behavioral: Negative. Date of Telehealth Visit: 06/08/23 Chief Complaint Patient presents with Telehealth Audio/video Visit [email or web address] or Fall HPI The patient was notified that using 3rd green party telecommunication application (e.g., Engezni) is not HIPPA compliant and may carry some privacy risks. Yes The visit was conducted [id number] with the use of audio and video technology Óscar WebEX between patient and provider for a virtual visit. Verbal consent to provide and bill this service was obtained on 06/08/23. No signature was obtained due to the COVID-19 pandemic. Patient Location: Patient Home I spent 30 minutes of total time on the day of the visit. This time was spent preparing for the visit, obtaining and reviewing any outside history/data, taking a history, performing an exam/evaluation, counseling and educating patient/family about the diagnosis and plan, performing medical decision making, referring to and communicating with other health care referrals, independently interpreting results and documenting in the EMR, and coordinating care. Please see the additional documentation in this note for specific details. She has used Ativan 3 times - it was beneficial for anxiety attack. Lunesta helped with sleep only marginally. She has CHUCKIE and is not receiving treatment. She is interested in the Inspire. Discussed that if CHUCKIE goes untreated she will likely not have any improvement to her sleep, and it will have lasting negative effects. Discussed sleep hygiene. No medication changes today. Denies depression, john, generalized anxiety. Current Presenting Symptoms/Problems: Mood: Good concentration, No anhedonia, No decreased need for sleep, No crying spells, and No excessive excitement Anxiety: No agoraphobia, No compulsions, and No generalized worry Trauma/Abuse: No abuse reported and No additional trauma noted Cognition: No agitation and No paranoia Sleep: No insomnia Lifestyle Habits: Structured routine of day Medication Compliance: Greater than 90% Onset/Timing: chronic Context: stable Severity: moderate Therapeutic Interventions Provided: Assessed Mood and Assessed Thinking Response to Intervention: Agreeable Overall Assessment of Progress: stable OARRS: No concerns noted Mental Status Exam Level of Alertness: alert Appearance: appears stated age and clean Eye Contact: normal Build/Stature: normal weight and normal height Posture: good posture Muscle Tone: rickey Gait and Ambulation: rickey Station: rickey Attitude Toward Examiner: cooperative and pleasant Behavior: normal Speech: clear and coherent reciprocal Language: expressive normal and receptive normal Mood: euthymic Affect: congruent Thought Process: coherent and goal-directed Thought Content: intact Orientation: oriented to person, oriented to place, and oriented to time Attention and Concentration: able to appropriately shift attention and able to focus Memory: able to comment on events and intact Abstraction: Proverbs: abstract Abstraction: Object Similarities: abstract Estimated Intelligence: average Insight: intact Judgement: social judgment intact and test judgment intact Reliability: reliable Plan: OCD MDD Inomnia Medications continue ativan 1mg daily prn for severe anxiety Continue lunesta to 3mg for sleep onset and sleep maintenance. Wear CPAP/ Inspire ISP due next visit RTC in 3 months This note was dictated by speech recognition. Minor errors in independent marketing consultant may be present. Information on after hour access to care was provided - encouraged to use 911, Rescue Crisis, their [facility] crisis hotline, or the nearest emergency room in the event of a crisis. Also informed of 24 hour access at [facility] and if in crisis after regular business hours may call the hospital automatic winder operator [phone]; and ask to speak with the chaplain resident on-call. Patient Rights and Responsibilities were discussed, including information concerning the billing of their insurance(s) for services rendered and that in some circumstances they be responsible for whatever is not paid by insurance. Informed of the importance of attending regularly scheduled appointment and the risks and benefits of appointment non-compliance. Notified of No show / cancellation policy. Patient verbalized an understanding Risks, benefits and alternatives to treatment were discussed with the patient, who voiced understanding and agreement with the treatment plan. Pt is aware of emergency services. Pt expressed understanding and agreement with the treatment plan. My information given to the patient and informed my hours, from 8:30am to 4:30pm and should get back t (more content not included)... [facility] 05-31-[address] [facility] Gastroenterolog y New Patient Visit - History & Physical CHIEF COMPLAINT Chief Complaint Patient presents with Nausea GERD Abdominal Pain New Patient HISTORY OF PRESENT ILLNESS: Mary Leal is a 53 y.o. female new patient referred by Dr. Willams for gastroparesis, GERD, and abdominal pain. Past medical history includes gastroparesis ( was evaluated by DR Masters at [facility]) and total abdominal colectomy with ileorectal anatamosis, which was done for colonic inertia and pelvic floor dysfunction. PMH also includes astham, bipolar disorder, HTN, sleep apnea, ADHD, chronic neck pain and PTSD. Ms. Leal states surgery for gastroparesis was offered, but she elected not to pursue surgery. Most recent EGD was 12/07/22 with pyloric dilation. According to the chart, Montiel placement was planned, but aborted 2/2 LA Grade D esophagitis. ( According to the documentaiton, she did have some improvement in symptoms after the dilation, but apprarently this only lasted a few weeks.) Today, she reports heartburn is well controlled on Dexilant. Denies vomiting currently, but has nausea everytime I eat . Was on reglan in the past, but states that it gave her diarrhea, so she stopped it. Ms. Leal reports that she had an ileostomy placed Dec 2021, then a few months later, her colon was removed, and continuity was restored. ( Reports smartpill showed colon wasn't working ) Ms. Leal is questioning if she has Crohns. States stools are oily. States is having difficulty maintaining weight Having about 7 bowel movement/day. (Not able to take fiber 2/2 gastroparesis) Frequent flatus, very foul smelling. Denies blood in the stool, but occasionally sees blood on the tissue when wiping. Flex sig was done Nov [address] Masters Ms Leal states she allison s not have a theraputic relationship with Dr. Masters. She would like to be tested for Crohns. PREVIOUS LABS/IMAGING/ENDOSCOPY: Flex sig 12/05/22 Dr. Masters ( the medical center) Impression: - The area at 20 cm proximal to the anus is normal. - No specimens collected. Recommendation: - Discharge patient to home. - Resume previous diet. - Continue present medications. EGD 12/07/2022 Dr Winston Hannah ( [facility]) EGD with Pyloric Dilation. During this procedure Montiel placement was aborted due to the presence of LA D esophagitis. For ~1 month after the procedure patient had marked symptomatic improvement including new tolerance of solid foods, as well as improved fullness/bloating and resolution of nausea/vomiting. This is despite gastric emptying time of <4 hours on smart pill. Barium esophagram showing spontaneous gastroesophageal reflux without the presence of hiatal hernia Gastric Emptying Study 12/17 The solid phase of gastric emptying study is performed after patient ingested a meal consisting of 1.0 mCi of technetium-99m sulfur colloid labeled 4 ounces of eggs. The gastric emptying images are obtained at 1 hour, 2 hours, and 4 hours after ingestion of radiolabeled solid food. Patient ate 100 % of the standard meal. The calculated the T1/2 of the gastric emptying is 237 min. The retention of the gastric activity is 94% at one hour, 94% at two hour, and 46% at four hours. IMPRESSION: Findings compatible with delayed gastric emptying. HISTORY: Problem list: Patient Active Problem List Diagnosis Allergic rhinitis Anxiety Arthritis of right acromioclavicular joint Asthma Atopic dermatitis Attention deficit disorder Bipolar 1 disorder (CMS/HCC) Cervical arthritis Chronic cluster headache, not intractable Chronic idiopathic constipation Chronic interstitial cystitis Chronic pelvic pain in female Chronic sinusitis Daytime hypersomnia Degeneration of cervical intervertebral disc Disorder of bladder Pelvic floor dysfunction Dysuria Gastro-esophageal reflux disease without esophagitis Flank pain Follow-up examination after colorectal surgery Gastroparesis Genitourinary syndrome of menopause Headache History of 2019 novel coronavirus disease (COVID-19) Hot flashes due to menopause HTN (hypertension) Impingement syndrome of right shoulder Increased frequency of urination Lack of coordination Nasal congestion Nocturia Obesity Obesity (BMI 30.0-34.9) Other fatigue Overactive bladder Partial nontraumatic rupture of right rotator cuff Poor urinary stream Chronic insomnia Primary insomnia Restless leg syndrome Sleep disturbance S/P nasal septoplasty Stress incontinence in female Tarsal tunnel syndrome Tension headache Unspecified inflammatory spondylopathy, cervical region (CMS/HCC) Urinary urgency Vitamin D deficiency Presence of right artificial ankle joint Major depressive disorder, recurrent, moderate (CMS/HCC) JOLEEN (generalized anxiety disorder) CHUCKIE (obstructive sleep apnea) Nausea Arthritis of left foot Essential (primary) hypertension Abnormal mammogram Arthritis (more content not included)... [facility] 05-22-2023 Note You are not granted access to view this sensitive note. [facility] 05-17-2023 Note Psych Progress Note Time In: 1245 Time Out: 110 HPI Present at Visit: Mary Location of Service: Office Review of Systems Constitutional: Negative. Respiratory: Negative. Cardiovascular: Negative. Psychiatric/Behavioral: Negative. Date of Telehealth Visit: 05/17/23. Chief Complaint Patient presents with Telehealth Audio/video Visit [email or web address] or Fall HPI The patient was notified that using 3rd green party telecommunication application (e.g., Engezni) is not HIPPA compliant and may carry some privacy risks. Yes The visit was conducted [id number] with the use of audio and video technology QompiumEX between patient and provider for a virtual visit. Verbal consent to provide and bill this service was obtained on 05/17/23. No signature was obtained due to the COVID-19 pandemic. Patient Location: Patient Home I spent 30 minutes of total time on the day of the visit. This time was spent preparing for the visit, obtaining and reviewing any outside history/data, taking a history, performing an exam/evaluation, counseling and educating patient/family about the diagnosis and plan, performing medical decision making, referring to and communicating with other health care referrals, independently interpreting results and documenting in the EMR, and coordinating care. Please see the additional documentation in this note for specific details. Reported that she stopped fluvoxamine about 2 months ago. She said it was no longer working so she discontinued it.She medical intake is having worsening anxiety. She is having about 2 panic attacks a month. Being in April her primary care doctor prescribed her 1 mg of Ativan daily as needed. She used this over a couple of weeks and it helped with her anxiety. She would like to be restarted on this medication. Reports the dose is adequate. She does not want to deal of maintenance medication because she has not been on all of them and none of them work. She did taking the Lunesta and trazodone at bedtime help with sleep and has been effective. She denies any mood symptoms. Current Presenting Symptoms/Problems: Mood: Good concentration, No anhedonia, No decreased need for sleep, No crying spells, and No excessive excitement Anxiety: No agoraphobia, No compulsions, and No generalized worry Trauma/Abuse: No abuse reported and No additional trauma noted Cognition: No agitation and No paranoia Sleep: No insomnia Lifestyle Habits: Structured routine of day Medication Compliance: Greater than 90% Onset/Timing: chronic Context: stable Severity: moderate Therapeutic Interventions Provided: Assessed Mood and Assessed Thinking Response to Intervention: Agreeable Overall Assessment of Progress: stable OARRS: No concerns noted Mental Status Exam Level of Alertness: alert Appearance: appears stated age and clean Eye Contact: normal Build/Stature: normal weight and normal height Posture: good posture Muscle Tone: rickey Gait and Ambulation: rickey Station: rickey Attitude Toward Examiner: cooperative and pleasant Behavior: normal Speech: clear and coherent reciprocal Language: expressive normal and receptive normal Mood: euthymic Affect: congruent Thought Process: coherent and goal-directed Thought Content: intact Orientation: oriented to person, oriented to place, and oriented to time Attention and Concentration: able to appropriately shift attention and able to focus Memory: able to comment on events and intact Abstraction: Proverbs: abstract Abstraction: Object Similarities: abstract Estimated Intelligence: average Insight: intact Judgement: social judgment intact and test judgment intact Reliability: reliable Plan: OCD MDD Inomnia Medications Patient stopped fluvoamine and does want to go back on any maintenance medication for anxiety Start ativan 1mg daily prn for severe anxiety increase lunesta to 3mg for sleep onset and sleep maintenance. ISP due next visit RTC in 4 weeks This note was dictated by speech recognition. Minor errors in independent marketing consultant may be present. Information on after hour access to care was provided - encouraged to use [employer], [employer], their [facility] crisis hotline, or the nearest emergency room in the event of a crisis. Also informed of 24 hour access at [facility] and if in crisis after regular business hours may call the hospital automatic winder operator [phone]; and ask to speak with the chaplain resident on-call. Patient Rights and Responsibilities were discussed, including information concerning the billing of their insurance(s) for services rendered and that in some circumstances they be responsible for whatever is not paid by insurance. Informed of the importance of attending regularly scheduled appointment and the risks and benefits of appointment non-compliance. Notified of No show / cancellation policy. Patient verbalized an understanding Risks, benefits and alternatives to tr (more content not included)... [facility] 05-17-2023 Note You are not granted access to view this sensitive note. [facility] 04-26-2023 Evaluation note Encounter Date Diagnosis Assessment Notes Apr, Cervical spondylosis without myelopathy (ICD-10 - M47.812) We discussed treatment options for the patient's persistent left neck pain. She shows notable pain consistent with degenerative changes of the cervical spine. Patient is a reasonable candidate for repeat left cervical facet radiofrequency ablation, which we will proceed with. Risks and benefits of procedure explained to patient; patient verbalizes understanding. Anatomy of spine discussed in detail with patient in regards to patients condition. Apr, Generalized pain (ICD-10 - R52) Apr, Lumbosacral spondylosis without myelopathy (ICD-10 - M47.817) We discussed treatment options for the patient's persistent low back pain. She shows notable pain consistent with degenerative changes of the lumbar spine. Patient is a reasonable candidate for repeat bilateral lumbar facet radiofrequency ablation, which we will proceed with. Risks and benefits of procedure explained to patient; patient verbalizes understanding. Anatomy of spine discussed in detail with patient in regard to patients condition. Apr, Other chronic pain (ICD-10 - G89.29) Apr, Other Above note written by Wanda Yang LPN, Machine Repairer. Edited and approved by Dr. Annette Harris MD. [employer] Other 06-12-2023 NoteYou are not granted access to view this sensitive note.[facility]06-09-2023 NoteYou are not granted access to view this sensitive note.[facility] 04-11-2023 Miscellaneous Notes* Telephone Encounter - Serenity Joseph MA - 04/11/2023 10:19 AM EDT MEREDITH=10/11/22 Spoke with patient she does need a refill Medication pended please file Rx request if appropriate Patient and pharmacy verified [facility] NoteYou are not granted access to view this sensitive note.[facility]05-15-2023 Miscellaneous Notes* Telephone Encounter - Lilli Goldberg - 03/20/2023 2:50 PM EDT Should patient follow up via virtual visit to discuss further? * Telephone Encounter - Ban Benton LPN - 03/20/2023 10:20 AM EDT Patient's stool tests came back normal. Ban Benton LPN documented in this encounterL[facility]05-15-2023 NoteYou are not granted access to view this sensitive note.[facility]05-01-2023 NoteYou are not granted access to view this sensitive note.[facility]04-24-2023 NoteYou are not granted access to view this sensitive note.[facility]04-18-2023 NotePROCEDURE: XR ANKLE RT MIN 3 VIEWS, XR FOOT RT MIN 3 VIEWS HISTORY: Pain of right ankle joint and foot COMPARISON: XR right foot 01/23/2023, XR ankle right 12/01/2022 FINDINGS: BONES:Posterior calcaneal osteotomy and repair via 2 lag screws. Anterior calcaneal osteotomy and wedge placement. Osteotomy and wedge placement within the medial cuneiform. Normal appearance of the ankle joint. Single screw within head of first metatarsal. SOFT TISSUES:No visible soft tissue swelling. EFFUSION:None visible. OTHER: Negative. IMPRESSION: 1. Stable surgical changes without evidence of hardware failure or change in alignment. Electronically authenticated by: ZAIDA ACOSTA Date: 2023-02-21 10:15[facility]04-18-2023 NotePROCEDURE: XR ANKLE RT MIN 3 VIEWS, XR FOOT RT MIN 3 VIEWS HISTORY: Pain of right ankle joint and foot COMPARISON: XR right foot 01/23/2023, XR ankle right 12/01/2022 FINDINGS: BONES:Posterior calcaneal osteotomy and repair via 2 lag screws. Anterior calcaneal osteotomy and wedge placement. Osteotomy and wedge placement within the medial cuneiform. Normal appearance of the ankle joint. Single screw within head of first metatarsal. SOFT TISSUES:No visible soft tissue swelling. EFFUSION:None visible. OTHER: Negative. IMPRESSION: 1. Stable surgical changes without evidence of hardware failure or change in alignment. Electronically authenticated by: ZAIDA ACOSTA Date: 2023-02-21 10:15[facility]04-17-2023 NoteYou are not granted access to view this sensitive note.[facility]04-13-2023 NotePsych Progress Note Time In: 2 Time Out: 2:25 HPI Present at Visit: Mary Location of Service: Office Review of Systems Constitutional: Negative. Respiratory: Negative. Cardiovascular: Negative. Psychiatric/Behavioral: Negative. Date of Telehealth Visit: 02/20/2023 Chief Complaint Patient presents with Telehealth Audio/video Visit @Jump or Fall HPI The patient was notified that using 3rd green party telecommunication application (e.g., Enge[employer]ni) is not HIPPA compliant and may carry some privacy risks. Yes The visit was conducted [id number] with the use of audio and video technology QompiumEX between patient and provider for a virtual visit. Verbal consent to provide and bill this service was obtained on 02/20/2023. No signature was obtained due to the COVID-19 pandemic. Patient Location: Patient Home I spent 30 minutes of total time on the day of the visit. This time was spent preparing for the visit, obtaining and reviewing any outside history/data, taking a history, performing an exam/evaluation, counseling and educating patient/family about the diagnosis and plan, performing medical decision making, referring to and communicating with other health care referrals, independently interpreting results and documenting in the EMR, and coordinating care. Please see the additional documentation in this note for specific details. 52 year old female presents for med mgmt. She reports a decrease in depression and obsessive thoughts since starting the luvox. She has been sleeping better with the lunesta and would like to increase. She denies any symptoms of john, hopelessness or SI. Current Presenting Symptoms/Problems: Mood: Good concentration, No anhedonia, No decreased need for sleep, No crying spells, and No excessive excitement Anxiety: No agoraphobia, No compulsions, and No generalized worry Trauma/Abuse: No abuse reported and No additional trauma noted Cognition: No agitation and No paranoia Sleep: No insomnia Lifestyle Habits: Structured routine of day Medication Compliance: Greater than 90% Onset/Timing: chronic Context: stable Severity: moderate Therapeutic Interventions Provided: Assessed Mood and Assessed Thinking Response to Intervention: Agreeable Overall Assessment of Progress: stable OARRS: No concerns noted Mental Status Exam Level of Alertness: alert Appearance: appears stated age and clean Eye Contact: normal Build/Stature: normal weight and normal height Posture: good posture Muscle Tone: rickey Gait and Ambulation: rickey Station: rickey Attitude Toward Examiner: cooperative and pleasant Behavior: normal Speech: clear and coherent reciprocal Language: expressive normal and receptive normal Mood: euthymic Affect: congruent Thought Process: coherent and goal-directed Thought Content: intact Orientation: oriented to person, oriented to place, and oriented to time Attention and Concentration: able to appropriately shift attention and able to focus Memory: able to comment on events and intact Abstraction: Proverbs: abstract Abstraction: Object Similarities: abstract Estimated Intelligence: average Insight: intact Judgement: social judgment intact and test judgment intact Reliability: reliable Plan: OCD MDD Inomnia Medications continue fluvoxamine 50mg po daily for obsessive thoughts and depression increase lunesta to 3mg for sleep onset and sleep maintenance. ISP due next visit RTC in 3 months This note was dictated by speech recognition. Minor errors in independent marketing consultant may be present. Information on after hour access to care was provided - encouraged to use [employer], [employer], their [facility] crisis hotline, or the nearest emergency room in the event of a crisis. Also informed of 24 hour access [address] [facility] and if in crisis after regular business hours may call the hospital automatic winder operator [phone]; and ask to speak with the chaplain resident on-call. Patient Rights and Responsibilities were discussed, including information concerning the billing of their insurance(s) for services rendered and that in some circumstances they be responsible for whatever is not paid by insurance. Informed of the importance of attending regularly scheduled appointment and the risks and benefits of appointment non-compliance. Notified of No show / cancellation policy. Patient verbalized an understanding Risks, benefits and alternatives to treatment were discussed with the patient, who voiced understanding and agreement with the treatment plan. Pt is aware of emergency services. Pt expressed understanding and agreement with the treatment plan. My information given to the patient and informed my hours, from 8:30am to 4:30pm and should get back to the patient within 24 business hours Updating all prescribers with current medication list is essential, including prescribed and over the counter medications as all medications m (more content not included)...[facility]04-10-2023 Note Attestation signed by Grant Biswas, PhD at 02/16/2023 2:57 PM This encounter qualifies to be billed under ???Direct Supervision??? because this patient was met by a licensed clinical psychologist upon starting treatment services with the provider who is a clinical psychology clarifier. The licensed clinical psychologist providing supervision for today???s services was immediately interruptible and readily available to join the patient and provider during the session in person or via virtual video call if needed. Please note there may be additional personal documentation. Psychiatry Psychotherapy Progress Note Time In: 11:05 am Time Out: 12:00 pm Present At Visit: Patient Clinician Location: Clinician in office Patient Location: Via telehealth [facility] Telehealth Information Telehealth Mode: [place] (video + audio) The patient was notified that using 3rd green party telecommunication application is not HIPAA compliant and may carry some privacy risks: Yes Video Consent Date of Telehealth Visit: 02/13/23 The patient was notified that using 3rd green party telecommunication application (e.g. Engezni) is not HIPAA compliant and may carry some privacy risks: Yes This visit was conducted [id number] with the use of audio and video technology using [employer] between patient and the provider for a virtual visit. Verbal consent to provide and bill this service was obtained on: 02/13/23 No signature was obtained due to the COVID-19 pandemic. SUBJECTIVE CC: Chief Complaint Patient presents with Therapy HPI: Mary Leal is a 52 y.o. female presenting to the [facility] Psychiatry Clinic on 02/13/23 for management of depression and anxiety. Since the last visit, the patient's condition has remained stable. Session activities included: discussed status of health/sleep issues and pt grieving the of her father. Pt stated she has had a busy week with doctor's appointments. She has been going to physical therapy and is scheduled for a consultation for hormone replacement therapy. She stated she is pre-menopausal and is wondering if some of her symptoms (anxiety, insomnia) are due to hormone changes. Pt stated she thinks she is doing better with grieving her father. She stated she feels motivated to do things when she wakes up. She also recently went to hockey games which is something her father enjoyed. Emphasized how far the patient has come and that grief is a process that is unique to each individual. Encouraged the pt to continue to do things to remember and honor her father. Current Presenting Symptoms/Problems: Mood: Anhedonia, Irritability, and Mood lability Anxiety: Generalized worry Trauma/Abuse: No abuse reported Other Symptoms/Disorders: N/A Onset/Timing: several years. Context: lack of support and of father (06/30/22) Severity: Moderate Sleep: Insomnia and Multiple awakenings Lifestyle Habits: Attempts healthy eating, No regular exercise, and Typical day lacks structure Medication Compliance: Greater than 90% Individualized Service Plan (ISP): Individualized Service Plan (ISP): Provider: Carmen Dorsey M.A. (clinical psychology clarifier) Frequency: 1-4 weeks Patient Needs: eleviate anxiety, space to process thoughts and emotions Patient Strengths: engaged in treatment, self-aware Concerns Referred Out: N/A Concerns Deferred: N/A Goal in Patient Words: not worry as much Discharge Criteria: Goals/objectives are completed or upon patient request. GOAL: manage symptoms of anxiety (Anxiety) Disciplines: Interdisciplinary Expected end: 10/10/23 OBJ: reduction of anxiety symptoms evidenced by 25% decrease in scores on JOLEEN-7 over 12 months (Anxiety) Disciplines: Interdisciplinary Expected end: 10/10/23 Progress Towards ISP Goals/Objectives: O1: in progress - CBT therapy to target symptom reduction Therapeutic Interventions Provided: Assessed Mood, Assessed Thinking, Cognitive Behavioral Therapy, Discussed Medications, Socratic Questioning, Psychoeducation, and Supportive Psychotherapy Response to Intervention: Agreeable OBJECTIVE Rating Scales Today's JOLEEN-7 score was: N/A Today's PHQ-9 score was: N/A Other self-report scales: N/A Mental Status Exam Level of Alertness: alert Appearance: appears stated age, clean, and dressed appropriately Eye Contact: normal Build/Stature: N/A Gait and Ambulation: N/A Attitude Toward Examiner: cooperative and pleasant Behavior: normal Speech: clear and coherent reciprocal Language: expressive normal and receptive normal Mood: euthymic Affect: appropriate and broad Thought Process: coherent and goal-directed Thought Content: intact Orientation: oriented to person, orien (more content not included)...[facility]04-03-2023 Note Attestation signed by Grant Biswas, PhD at 02/06/2023 9:45 AM This encounter qualifies to be billed under ???Direct Supervision??? because this patient was met by a licensed clinical psychologist upon starting treatment services with the provider who is a clinical psychology clarifier. The licensed clinical psychologist providing supervision for today???s services was immediately interruptible and readily available to join the patient and provider during the session in person or via virtual video call if needed. Please note there may be additional personal documentation. Psychiatry Psychotherapy Progress Note Time In: 8:30 am Time Out: 9:25 am Present At Visit: Patient Clinician Location: Clinician in office Patient Location: Via telehealth in [place] Telehealth Information Telehealth Mode: [place] (video + audio) The patient was notified that using 3rd green party telecommunication application is not HIPAA compliant and may carry some privacy risks: Yes Video Consent Date of Telehealth Visit: 02/06/23 The patient was notified that using 3rd green party telecommunication application (e.g. Enge[employer]ni) is not HIPAA compliant and may carry some privacy risks: Yes This visit was conducted [id number] with the use of audio and video technology using [employer] between patient and the provider for a virtual visit. Verbal consent to provide and bill this service was obtained on: 02/06/23 No signature was obtained due to the COVID-19 pandemic. SUBJECTIVE CC: Chief Complaint Patient presents with Therapy HPI: Mary Leal is a 52 y.o. female presenting to the [facility] Psychiatry Clinic on 02/06/23 for management of depression and anxiety. Since the last visit, the patient's condition has remained stable. Session activities included: symptom monitoring, psychoeducation on obsessive thoughts/compulsive behaviors. Pt stated she has had difficulty sleeping the past week and feels tired. Pt regularly reports sleep difficulties. She stated she saw her HUMAN RESOURCES VICE PRESIDENT and they discussed stopping her trazadone to see if that helps. Pt stated she did not get any sleep the nights she did not take the trazadone and thus started taking it again. She stated she will message her HUMAN RESOURCES VICE PRESIDENT to let her know. Pt stated she cancelled appointment for ECT consultation because she decided she does not want to go that route. Asked pt about her obsessions/compulsions as noted by her psychiatrist, Dr. Swanson. Pt stated she has a constant fear that something awful is going to happen to her children. She stated she will text or call them to check in and that helps relieve the fear. She stated she usually does not go longer than one day without checking in with them. Pt stated this is normal to her and while distressing, is not something she cares to work on or change. Encouraged pt to let therapist know if she changes regarding targeting distressing thoughts. Current Presenting Symptoms/Problems: Mood: Anhedonia, Irritability, and Mood lability Anxiety: Generalized worry Trauma/Abuse: No abuse reported Other Symptoms/Disorders: N/A Onset/Timing: several years. Context: lack of support and of father (06/30/22) Severity: Moderate Sleep: Insomnia and Multiple awakenings Lifestyle Habits: Attempts healthy eating, No regular exercise, and Typical day lacks structure Medication Compliance: Greater than 90% Individualized Service Plan (ISP): Individualized Service Plan (ISP): Provider: Carmen Dorsey M.A. (clinical psychology clarifier) Frequency: 1-4 weeks Patient Needs: eleviate anxiety, space to process thoughts and emotions Patient Strengths: engaged in treatment, self-aware Concerns Referred Out: N/A Concerns Deferred: N/A Goal in Patient Words: not worry as much Discharge Criteria: Goals/objectives are completed or upon patient request. GOAL: manage symptoms of anxiety (Anxiety) Disciplines: Interdisciplinary Expected end: 10/10/23 OBJ: reduction of anxiety symptoms evidenced by 25% decrease in scores on JOLEEN-7 over 12 months (Anxiety) Disciplines: Interdisciplinary Expected end: 10/10/23 Progress Towards ISP Goals/Objectives: O1: in progress - CBT therapy to target symptom reduction Therapeutic Interventions Provided: Assessed Mood, Assessed Thinking, Cognitive Behavioral Therapy, Discussed Medications, Socratic Questioning, Psychoeducation, and Supportive Psychotherapy Response to Intervention: Agreeable OBJECTIVE Rating Scales Today's JOLEEN-7 score was: N/A Today's PHQ-9 score was: N/A Other self-report scales: N/A Mental Status Exam Level of Alertness: alert Appearance: appears stated age, clean, and dressed appropriately Eye Contact: normal Build/Stature: N/A Gait (more content not included)...[facility]03-30-2023 NotePsych Progress Note Time In: 9:38 Time Out: 9:40 HPI Present at Visit: Mary Location of Service: Office Review of Systems Constitutional: Negative. Respiratory: Negative. Cardiovascular: Negative. Psychiatric/Behavioral: Positive for dysphoric mood and sleep disturbance. Negative for self-injury and suicidal ideas. The patient is nervous/anxious. 52 year old female presents for med mgmt. She is currently only taking trazodone (ineffective). She is only sleeping about 4 hours at night. Difficulty with sleep onset and maintenance. She is very tired during the day. She endorses depression and anxiety including obsessive thoughts - specifically negative thoughts about the past. She denies suicidal ideation. She has been sleeping somewhat better since decreasing ropinirole. Current Presenting Symptoms/Problems: Mood: No suicidal ideations, Sadness, Anhedonia, Crying spells, Irritability, and Mood lability Anxiety: Generalized worry, Obsessive thoughts, and Obsessions Trauma/Abuse: No abuse reported and No additional trauma noted Cognition: No agitation and No paranoia Sleep: No early awakenings, Not hypersomnolent, and No insomnia Lifestyle Habits: Attempts healthy eating, Regular exercise, and Structured routine of day Medication Compliance: Greater than 90% Onset/Timing: chronic Context: off all medications except trazodone (ineffective) Severity: moderate Therapeutic Interventions Provided: Assessed Mood Response to Intervention: Agreeable Overall Assessment of Progress: OARRS: No concerns noted Mental Status Exam Level of Alertness: alert Appearance: appears stated age and clean Eye Contact: normal Build/Stature: normal weight and normal height Posture: good posture Muscle Tone: rickey Gait and Ambulation: rickey Station: rickey Attitude Toward Examiner: cooperative and pleasant Behavior: normal Speech: clear and coherent reciprocal Language: expressive normal and receptive normal Mood: euthymic Affect: congruent Thought Process: coherent and goal-directed Thought Content: intact Orientation: oriented to person, oriented to place, and oriented to time Attention and Concentration: able to appropriately shift attention and able to focus Memory: able to comment on events and intact Abstraction: Proverbs: abstract Abstraction: Object Similarities: abstract Estimated Intelligence: average Insight: intact Judgement: social judgment intact and test judgment intact Reliability: reliable Plan: OCD MDD Inomnia Medications Stop trazodone (ineffective) Start fluvoxamine 50mg po daily for obsessive thoughts and depression Start lunesta 2mg for sleep onset and sleep maintenance. ISP due next visit RTC in 4-6 weeks This note was dictated by speech recognition. Minor errors in independent marketing consultant may be present. Information on after hour access to care was provided - encouraged to use 911, Rescue Crisis, their [facility] crisis hotline, or the nearest emergency room in the event of a crisis. Also informed of 24 hour access at [facility] and if in crisis after regular business hours may call the hospital automatic winder operator [phone]; and ask to speak with the chaplain resident on-call. Patient Rights and Responsibilities were discussed, including information concerning the billing of their insurance(s) for services rendered and that in some circumstances they be responsible for whatever is not paid by insurance. Informed of the importance of attending regularly scheduled appointment and the risks and benefits of appointment non-compliance. Notified of No show / cancellation policy. Patient verbalized an understanding Risks, benefits and alternatives to treatment were discussed with the patient, who voiced understanding and agreement with the treatment plan. Pt is aware of emergency services. Pt expressed understanding and agreement with the treatment plan. My information given to the patient and informed my hours, from 8:30am to 4:30pm and should get back to the patient within 24 business hours Updating all prescribers with current medication list is essential, including prescribed and over the counter medications as all medications may have interactions and side effects. Follow up regularly with primary care provider for well visits and any physical health concerns including issues with physical pain. Follow up as required with medical specialists for management of chronic health conditions. Abstinence from alcohol and drugs is important.These substances may have significant negative effects on cognitive and emotional functioning, and there are interactions between these substances and prescribed medications. Treatment with psychotropic medications requires regular monitoring and follow up to ensure safety and effectiveness.It is important to attend regularly scheduled appointments and to keep in contact with providers as needed between scheduled f (more content not included)...[facility] 01-31-2023 NotePROCEDURE: XR FOOT RT MIN 3 VIEWS HISTORY: Pain in right foot COMPARISON: XR foot right 12/21/2022 FINDINGS: BONES:Anterior posterior calcaneal osteotomy and repair. Osteotomy and wedge placement within the medial cuneiform. Single screw within head of first metatarsal. SOFT TISSUES:No visible soft tissue swelling. EFFUSION:None visible. OTHER: Negative. IMPRESSION: 1. Stable surgical changes without evidence of hardware failure or change in alignment. 2. No appreciable acute abnormality. Electronically authenticated by: ZAIDA ACOSTA Date: 2023-01-31 11:55[facility]03[facility]20[facility]2023 Note Attestation signed by Grant Biswas, PhD at 01/23/2023 11:30 AM This encounter qualifies to be billed under ???Direct Supervision??? because this patient was met by a licensed clinical psychologist upon starting treatment services with the provider who is a clinical psychology clarifier. The licensed clinical psychologist providing supervision for today???s services was immediately interruptible and readily available to join the patient and provider during the session in person or via virtual video call if needed. Please note there may be additional personal documentation. Psychiatry Psychotherapy Progress Note Time In: 9:30 am Time Out: 10:25 am Present At Visit: Patient Clinician Location: Clinician in office Patient Location: Via telehealth in [place] Telehealth Information Telehealth Mode: [place] (video + audio) The patient was notified that using 3rd green party telecommunication application is not HIPAA compliant and may carry some privacy risks: Yes Video Consent Date of Telehealth Visit: 01/23/23 The patient was notified that using 3rd green party telecommunication application (e.g. Engezni) is not HIPAA compliant and may carry some privacy risks: Yes This visit was conducted [id number] with the use of audio and video technology using Atempo between patient and the provider for a virtual visit. Verbal consent to provide and bill this service was obtained on: 01/23/23 No signature was obtained due to the COVID-19 pandemic. SUBJECTIVE CC: Chief Complaint Patient presents with Therapy HPI: Mary Leal is a 52 y.o. female presenting to the [facility]ry [facility] on 01/23/23 for management of depression and anxiety. Since the last visit, the patient's condition has remained stable. Session activities included: reviewed acts of self-care and value-focused behaviors, pt processed thoughts and feelings regarding ECT. Pt reported her psychiatry provider has suggested ECT as a treatment option for her symptoms of anxiety and depression. Pt stated she is tired of trying different medications but is also nervous about the side effects of ECT (e.g., short-term memory loss). Pt has a consultation with her provider about ECT on Monday. Pt discussed having a fun weekend with her son. She reported going to a basketball tournament and her son and his friends. Pt provided an update on transitioning her niece and nephew to live with their older sister in [place]. Pt has met with an associate trainer and is securing the necessary paperwork. Current Presenting Symptoms/Problems: Mood: Anhedonia, Irritability, and Mood lability Anxiety: Generalized worry Trauma/Abuse: No abuse reported Other Symptoms/Disorders: N/A Onset/Timing: several years. Context: lack of support and of father (06/30/22) Severity: Moderate Sleep: Insomnia and Multiple awakenings Lifestyle Habits: Attempts healthy eating, No regular exercise, and Typical day lacks structure Medication Compliance: Greater than 90% Individualized Service Plan (ISP): Individualized Service Plan (ISP): Provider: Carmen Dorsey M.A. (clinical psychology clarifier) Frequency: 1-4 weeks Patient Needs: eleviate anxiety, space to process thoughts and emotions Patient Strengths: engaged in treatment, self-aware Concerns Referred Out: N/A Concerns Deferred: N/A Goal in Patient Words: not worry as much Discharge Criteria: Goals/objectives are completed or upon patient request. GOAL: manage symptoms of anxiety (Anxiety) Disciplines: Interdisciplinary Expected end: 10/10/23 OBJ: reduction of anxiety symptoms evidenced by 25% decrease in scores on JOLEEN-7 over 12 months (Anxiety) Disciplines: Interdisciplinary Expected end: 10/10/23 Progress Towards ISP Goals/Objectives: O1: in progress - CBT therapy to target symptom reduction Therapeutic Interventions Provided: Assessed Mood, Assessed Thinking, Cognitive Behavioral Therapy, Discussed Medications, Socratic Questioning, and Supportive Psychotherapy Response to Intervention: Agreeable OBJECTIVE Rating Scales Today's JOLEEN-7 score was: N/A Today's PHQ-9 score was: N/A Other self-report scales: N/A Mental Status Exam Level of Alertness: alert Appearance: appears stated age, clean, and dressed appropriately Eye Contact: normal Build/Stature: N/A Gait and Ambulation: N/A Attitude Toward Examiner: cooperative and pleasant Behavior: normal Speech: clear and coherent reciprocal Language: expressive normal and receptive normal Mood: euthymic Affect: appropriate and broad Thought Process: coherent and goal-directed Thought Content: intact Orientation: oriented to person, oriented to place, and oriented to time Attention and Concent (more content not included)...[facility]03-16-2023 Miscellaneous Notes* Telephone Encounter - Jennie Moreno RN - 01/19/2023 2:17 PM EDT Please review and advise patient. documented in this encounterLake[facility] Miscellaneous Notes* Telephone Encounter - Mounika Hernandez PA-C - 01/16/2023 1:08 PM EDT Patient was scheduled for virtual PACC appt at 1300 today. Patient did not check in for visit. Called patient at [phone] to see if they needed any assistance logging in and left voicemail. This message routed to PACC schedulers to contact patient to reschedule PACC appt. Mounika Hernandez PA-C January 16, 2023 1:09 PM documented in this encounterLakehealth [facility]03-13-2023 History and physical note * Mounika Hernandez PA-C - 01/16/2023 1:00 PM EDT This is a virtual visit using Immusoft video visit. It required patient-provider interaction for themedical decision making as documented below. I have communicated my name and active licensure. The patient's identity and physical location wereverified at the time of this visit. Either the patient or their legal merchandising representative has been informed of the risks and benefits of and alternatives to treatment through a remote evaluation and consents to proceed with the evaluation remotely. Surgeon: Winston Hannah DO Type of surgery: GEN SURG: POP Patient scheduled for surgery on 02/08/23 . Surgery Location: [facility] Diagnosis: Preop examination (primary encounter diagnosis) Nausea Chuckie (obstructive sleep apnea) Mild persistent asthma without complication Gastroesophageal reflux disease, unspecified whether esophagitis present Gastroparesis Ht 5' 4 (1.63m) Wt 150 lb (68.0kg) BMI 25.73 kg/(m^2). H&P completed: 01/10/[address] Hannah Social History Tobacco Use Smoking status: Never Smokeless tobacco: Never Substance Use Topics Alcohol use: Never Drug use: Never sucralfate (CARAFATE) 100 mg/mL suspension Take 10 mL by mouth twice daily. Cholecalciferol, Vitamin D3, 25 mcg (1,000 unit) cap Take 1,000 Units by mouth once daily. cyanocobalamin (VITAMIN B-12) 1,000 mcg tab Take 1,000 mcg by mouth once daily. cyclobenzaprine (FLEXERIL) 10 mg tablet Take by mouth three times daily. galcanezumab-gnlm (EMGALITY SYRINGE) 120 mg/mL syringe Inject subcutaneously once every month. Do not shake. Dexlansoprazole 60 mg CpDM take 1 capsule by mouth before breakfast Simethicone (GAS RELIEF, SIMETHICONE,) 125 mg chewable tablet Take 2 tablets by mouth three times daily as needed. traZODone (DESYREL) 50 mg tablet Take 150 mg by mouth daily at bedtime. atorvastatin (LIPITOR) 20 mg tablet Take 20 mg by mouth once daily. rOPINIRole (REQUIP) 2 mg tablet Take 2 mg by mouth twice daily. Takes 2 mg in the AM and 4 mg PM noashtrplpz-tgpcalniw-mrgulgbr (TRELEGY ELLIPTA) 100-62.5-25 mcg Inhale 1 Puff as instructed once daily. ALLERGIES Allergen Reactions Risperidone Intolerance Breast discharge COVID VACCINATION STATUS: Fully vaccinated PHYSICAL EXAMINATION: Alert and oriented, No acute distress, Healthy appearance Unlabored on room air Laboratory and Testing: Hemoglobin A1C (%) Date Value 06/10/2021 5.9 EKG READING: EKG not indicated OTHER TESTS: N/A ANESTHESIOLOGY REVIEW: MOUTH OPENING/TMJ : Full jaw ROM MICROGNATHIA/OVERBITE: no MP SCORE: MP 2 UPPER LIP BITE TEST: Class I - Lower incisors can bite the upper lip above the shaheen line DENTITION: Intact THYROMENTAL DIST: WNL SHORT NECK: No NECK FLEX: Full ROM NECK EXTENSION: Full ROM INTUBATION HISTORY: history of general anesthesia without difficulty ADVERSE ANESTHESIA EVENT: no history of adverse event ANESTHETIC OPTIONS: Final anesthesia management options will be discussed on day of surgery. PAIN MANAGEMENT OPTIONS: Final pain management plan will be discussed on the day of surgery. OPTIMIZATION STATUS: Patient optimized for OR, pending DOS review. ASA Class: 3 Mounika Hernandez PA-C January 16, 2023 12:36 PM documented in this encounterLakehealth [facility]03-13-2023 Instructions* Patient Instructions* Mounika Hernandez PA-C - 01/16/2023 12:38 PM EDT PATIENT PREOPERATIVE INSTRUCTIONS Winston Hannah DO has scheduled you for your procedure at this surgery center: [facility]: [phone] -- [id number] [address]. Please read below carefully for your personalized instructions. Dietary Restrictions: Days before procedure: Day 3-full liquid diet; Day 2-full liquid diet; Day 1- CLEAR LIQUIDS ONLY . (water, clear juices such as apple juice or gatorade, carbonated beverages, clear tea, black coffee, and jello). Nothing by mouth after midnight before procedure, except a small sip of water to take approved medications. Medications: Unless instructed differently below, stay on all of your medications until your surgery. Approved medications to take the morning of surgery with a sip of water: DEXLANSOPRAZOLE If you start any new medications after today's visit, please contact the surgeon's office. Blood Thinning Medications: - Stop NSAIDS (Ibuprofen, Advil, Aleve, Motrin, Celebrex, Mobic, etc.) 7 days before surgery, as directed by your surgeon. - Stop Aspirin 7 days before surgery, as directed by your surgeon. - Stop Vitamin E, ALL multi-vitamins, herbals and dietary supplements 7 days before surgery. - You may take Tylenol (Acetaminophen) or any of your pain medications that do not contain aspirin or NSAIDS as needed. Important Reminders: - If you are prescribed inhalers for breathing, continue using them. - Candy, mints, and tobacco products are NOT permitted the morning of surgery. - Hearing aids, dentures and glasses may be worn the morning of surgery. - NO jewelry, body piercings, makeup, hairpins or contacts are to be worn the day of surgery. If you develop symptoms such as a fever, cold, or flu, or have other changes to your health within TWO DAYS of scheduled surgery or the morning of surgery, please contact the surgery center above. Personal Belongings: -Please have photo ID and insurance cards. -If you do not have a copy of advance directives on file with us, please bring a copy with you on the day of surgery. - Leave ALL valuables and money at home or with family members. For Outpatient Procedures: - YOU MUST HAVE A RESPONSIBLE LVN TAKE YOU HOME. A COLLECTION CLERK OR FLOWER STRIPPER CANNOT BE MADE A RESPONSIBLE LVN. - We recommend that a responsible person stays with you overnight to take care of you. - You cannot stay in a hotel alone after outpatient surgery. You will not be permitted to have yoursurgery, if you do not have someone to take care of you. Arrival Time for Surgery: - The Surgery Center or hospital where you are having surgery will call the afternoon before surgery (or Monday for Monday surgery) with a scheduled arrival time. - If you have not heard by 4 pm, please contact the surgery center above. Please be aware that emergency situations arise, which may delay or change your surgical time. If this happens, we will notify you as soon as possible and regret any inconvenience. If you already have an Advance Directive, please fax a copy to [phone] or email to for it to be added to your chart. If you do not have an Advance Directive, you can find the appropriate form and more information at [email or web address]. We recommend that youcomplete the Advance Directive form found on the website and bring it with you the day of your surgery. It can be witnessed and scanned into your chart that day. Mounika Hernandez PA-C documented in this encounterLakehealth [facility]03-08-2023 Miscellaneous Notes* Telephone Encounter - Berta Ann RN - 01/11/2023 9:47 AM EST Procedure pended for 02/08/23. Pt aware of need for PACC. Pre-op instructions reviewed, will send to pt's MC, per pt request. Postop appt scheduled. No other questions at this time. Berta HENSON, RN Specialty Banquet Coordinator documented in this encounterLakehealth [facility]03-07-2023 NoteHNO ID: [id number] Author: Winston Hannah DO Service: ? Author Type: Physician Type: Progress Notes Filed: 01/10/2023 6:08 PM Note Text: Digestive Disease AND Surgery [place] Gastroparesis/Dysmotility Follow Up This encounter was provided via two-way, live video teleconferencing within the guidelines of state licensure rules for new and established patients. The visit was conducted virtually as a convenience to the patient and to reduce potential exposure to COVID-19. The patient's identity was confirmed at the start of the visit, and patient provided verbal consent to the telemedicine encounter. The patient did not require assistance during the encounter and technical difficulties were not encountered. 22 minutes were spent on the teleconference with the patient. An additional 10 minutes was required for chart review/preparation, documentation, orders, and care coordination. SERVICE DATE: 01/10/2023 SERVICE TIME: 8:59 AM PRIMARY CARE PHYSICIAN: Eliceo Willams DO Assessment ASSESSMENT 52 year old female with medical refractory gastroparesis in the setting of lower GI dysmotility, now status post 03/2022 total abdominal colectomy with ileorectal anastomosis. Despite improvements in constipation, obstipation as well as bloating she continued to struggle with daily severe medically refractory gastroesophageal reflux as well as nausea, vomiting, and upper abdominal pains. Now s/p 12/07/2022 EGD with Pyloric Dilation. During this procedure Montiel placement was aborted due to the presence of LA D esophagitis. For ~1 month after the procedure patient had marked symptomatic improvement including new tolerance of solid foods, as well as improved fullness/bloating and resolution of nausea/vomiting. This is despite gastric emptying time of <4 hours on smart pill. Barium esophagram showing spontaneous gastroesophageal reflux without the presence of hiatal hernia Overall patient's presentation is suggestive of functional dyspepsia with pylorospasm in the setting of severe gastroesophageal reflux disease. At this junction we will treat her pylorospasm and future considerations include laparoscopic hiatal hernia repair (possible pending operative findings) with partial fundoplication (toupee), based on response to the POP procedure PLAN I discussed surgical therapy for gastroparesis in detail. Mary Leal is candidate for Per Oral Pyloromyotomy -Schedule EGD with Per Oral Pyloromyotomy -Smart Pill Reviewed -Continue Dexilant every day -GERD Lifestyle modifications and diet reviewed -GP diet as tolerated -Follow up in 4 week after procedure Risk, benefits, and alternatives were discussed in detail. All questions were answered, and patient elects to proceed with the intended plan of care. NAME: Mary Leal CLINIC NO: [id number] CHIEF COMPLAINT Idiopathic Gastroparesis HISTORY OF PRESENT ILLNESS Mary Leal is a 52 year old female who comes in today for surgical evaluation for management of gastroparesis. The patient has been evaluated thoroughly including an EGD, and gastric emptying study. History is notable for bipolar, depression, endometriosis, restless leg syndrome, ADHD, PTSD, asthma, HTN, appendectomy, anal fissure, and total hysterectomy GI issues began around 2019. Still cannot eat solid foods. Pain and nausea are the primary drivers. She vomits most things that she eats. Currently only to eat jello and purees 3 main symptoms are nausea, pain, and epigastric burning. Since TAC OANH, only thing that improved was constipation and some bloating. INTERVAL HPI: Since last visit, patient has been doing rather well, about the same as hr prior visit. She is starting to notice some symptom recurrence since the dilation. Duration of symptoms (months): ~3-4 years Weight changes in last 3 months: Stable GERD: Doing better since back on medication, heartburn resolved, but persistent regurgitation. Dexilant daily. Belching remains a major issue. Dysphagia: Sticking sensations in the lower neck, frequently requires sips of water between bites. 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 Stricture, Ring, or Web: None. Motility: Normal. Hiatal Hernia: Absent. Gastroesophageal Reflux: Small volume, rapidly clearing (<30 seconds), which reproduced symptoms of burning. Gastric Cardia: Normal. Barium Tablet: Briefly impeded at the level of the aortic arch and the esophagogastric junction, passes with additional sips of water and thin barium without ob (more content not included)...[facility] 01-10-2023 History of Present illness Narrative* Winston Hannah, - 01/10/2023 9:09 AM EST Images from the original note were not included. [facility] [place] Gastroparesis/Dysmotility Follow Up This encounter was provided via two-way, live video teleconferencing within the guidelines of statelicensure rules for new and established patients. The visit was conducted virtually as a convenience to the patient and to reduce potential exposure to COVID-19. The patient's identity was confirmed at the start of the visit, and patient provided verbal consent to the telemedicine encounter. The patient did not require assistance during the encounter and technical difficulties were not encountered. 22 minutes were spent on the teleconference with the patient. An additional 10 minutes was required for chart review/preparation, documentation, orders, and care coordination. SERVICE DATE: 01/10/2023 SERVICE TIME: 8:59 AM PRIMARY CARE PHYSICIAN: Eliceo Willams DO Assessment ASSESSMENT 52 year old female with medical refractory gastroparesis in the setting of lower GI dysmotility, now status post 03/2022 total abdominal colectomy with ileorectal anastomosis. Despite improvements in constipation, obstipation as well as bloating she continued to struggle with daily severe medically r efractory gastroesophageal reflux as well as nausea, vomiting, and upper abdominal pains. Now s/p 12/07/2022 EGD with Pyloric Dilation. During this procedure Montiel placement was aborted due to the presence of LA D esophagitis. For ~1 month after the procedure patient had marked symptomatic improvement including new tolerance of solid foods, as well as improved fullness/bloating and resolution of nausea/vomiting. This is despite gastric emptying time of <4 hours on smart pill. Barium esophagramshowing spontaneous gastroesophageal reflux without the presence of hiatal hernia Overall patient's presentation is suggestive of functional dyspepsia with pylorospasm in the setting of severe gastroesophageal reflux disease. At this junction we will treat her pylorospasm and future considerations include laparoscopic hiatal hernia repair (possible pending operative findings) with partial fundoplication (tohola), based onresponse to the POP procedure PLAN I discussed surgical therapy for gastroparesis in detail. Mary Leal is candidate for Per OralPyloromyotomy -Schedule EGD with Per Oral Pyloromyotomy -Smart Pill Reviewed -Continue Dexilant every day -GERD Lifestyle modifications and diet reviewed -GP diet as tolerated -Follow up in 4 week after procedure Risk, benefits, and alternatives were discussed in detail. All questions were answered, and patientelects to proceed with the intended plan of care. NAME: Mary Leal CLINIC NO: [id number] CHIEF COMPLAINT Idiopathic Gastroparesis HISTORY OF PRESENT ILLNESS Mary Leal is a 52 year old female who comes in today for surgical evaluation for management of gastroparesis. The patient has been evaluated thoroughly including an EGD, and gastric emptying study. History is notable for bipolar, depression, endometriosis, restless leg syndrome, ADHD, PTSD, asthma, HTN, appendectomy, anal fissure, and total hysterectomy GI issues began around 2019. Still cannot eat solid foods. Pain and nausea are the primary drivers. She vomits most things that she eats. Currently only to eat jello and purees 3 main symptoms are nausea, pain, and epigastric burning. Since TAC OANH, only thing that improved was constipation and some bloating. INTERVAL HPI: Since last visit, patient has been doing rather well, about the same as hr prior visit. She is starting to notice some symptom recurrence since the dilation. Duration of symptoms (months): ~3-4 years Weight changes in last 3 months: Stable GERD: Doing better since back on medication, heartburn resolved, but persistent regurgitation. Dexilant daily. Belching remains a major issue. Dysphagia: Sticking sensations in the lower neck, frequently requires sips of water between bites. 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 Stricture, Ring, or Web: None. Motility: Normal. Hiatal Hernia: Absent. Gastroesophageal Reflux: Small volume, rapidly clearing (<30 seconds), which reproduced symptoms of burning. Gastric Cardia: Normal. Barium Tablet: Briefly impeded at the level of the aortic arch and the esophagogastric junction, passes with additional sips of water and thin barium without obstruction. Other Findings: None. EGD (12/07/2022) Impression: - The examined portions of the nasopharynx, oropharynx and larynx were normal. - LA Grade D reflux esophagitis with no bleeding. - Z line irregular 36cm from incisors - Normal mucosa was found in the stomach. - Gastroparesis. Dilated to 20mm - Normal examined duodenum. - No specimens collected. - Montiel was not placed due to severe esophagitis Gastric Emptying Study Results (12/2019) 1 Hour = 94% Retained 2 Hour = 94% Retained 4 Hour = 45% Retained SMART Pill (11/2022) Transit Times (h:min) GET: 3:20 ? 4 h suggests delayed gastric emptying. SBTT: 3:30 Normal: 2.5 - 6 h CTT: 17:41 > 59 h indicates delayed colonic transit. SLBTT: 21:11 > 64 h indicates delayed combined bowel transit. WGTT: 24:32 Normal: < 73 h Gastric pH High: 6.3 Low: 0.8 Range annotations (h:min) Start: 2:58, End: 3:28 30 min. prior Contractions/min: 2.27 Mean amplitude: 14.5 Motility index: 55.52 Start: 3:28, End: 3:58 30 min. post Contractions/min: 1.4 Mean amplitude: 16.92 Motility index: 35.44 Point annotations (h:min) Interpretations and Recommendations Interpretations Observed pH baseline below 4 in the stomach., No evidence of additional meal 6 hours into test., Observed a pH change of 3 or more units., Did not observe a gradually increasing pH profile, Observed normal gastric emptying. Clinical Management Plans Normal gastric transit Normal small bowel transit [id number] transit in the distal bowel consistent delay post anastomosis SMART Pill (08/2021) Transit Times (h:min) GET: 3:24 ? 4 h suggests delayed gastric emptying. SBTT: 4:43 Normal: 2.5 - 6 h CTT: 94:45 > 59 h indicates delayed colonic transit. SLBTT: 99:29 > 64 h indicates delayed combined bowel transit. WGTT: 102:54 Normal: < 73 h Gastric pH High: 7.2 Low: 0.9 Range annotations (h:min) Start: 2:59, End: 3:29 30 min. prior Contractions/min: 5.4 Mean amplitude: 15.46 Motility index: 125.61 Start: 3:29, End: 3:59 30 min. post Contractions/min: 5.55 Mean amplitude: 16.56 Motility index: 133.76 Point annotations (h:min) Interpretations and Recommendations Interpretations Observed pH baseline below 4 in the stomach., No evidence of additional meal 6 hours into test., Observed a pH change of 3 or more units., Observed a gradually increasing pH profile., Observed normal gastric emptying., Observed normal SBTT., Observed delayed CTT. Clinical Management Plans Normal gastric transit no evidence of GP Normal small bowel transit Severely delayed colonic transit EGG (N/A) Not Ordered Gastroparesis cardinal symptom index Post-Pyloric Dilation 1. nausea 0 (4) 2. retching 0 (3) 3. vomiting 0 (3) 4. stomach fullness 3 (4) 5. not able to finish a normal-sized meal 0 (5) 6. feeling excessively full after meals 1 (5) 7. loss of appetite 1 (5) 8. bloating (feeling like you need to loosen your clothes) 0 (5) 9. stomach or belly visibly larger 0 (3) GCSI - 4.03 Scale (0-none; 1-very mild; 2-mild; 3-moderate; 4-severe; 5-very severe) PAST HISTORY PAST MEDICAL HISTORY Diagnosis Date Asthma as a child Bipolar 1 disorder (HCC) Gastroparesis History of laparoscopic-assisted vaginal hysterectomy 10/2015 for endometriosis HTN (hypertension) PTSD (post-traumatic stress disorder) PAST SURGICAL HISTORY Procedure Laterality Date COLONOSCOPY EGD 2019 with dilation FOOT SURGERY HX Right 10/2022 reconstruction PAST SURGICAL HISTORY OF left foot reconstruction PAST SURGICAL HISTORY OF cervical neck surgery PAST SURGICAL HISTORY OF Left ACL PAST SURGICAL HISTORY OF anal fissure PAST SURGICAL HISTORY OF Left CTR PAST SURGICAL HISTORY OF appendectomy PAST SURGICAL HISTORY OF bilat bunionectomy PAST SURGICAL HISTORY OF 12/24/2021 laparoscopic proctopexy with diverting loop ileostomy, anterior & posterior colporrhaphy and sling 12/24/2021 TONSILLECTOMY HX 02/11/2021 and septoplasty TONSILLECTOMY HX 07/2021 revision VAGINAL HYSTERECTOMY 2014 LAVH 10/2015 for endometriosis, has remaining both FAMILY HISTORY Problem Relation Age of Onset Hypertension Mother Dementia Mother Hypertension Father other (atrial fibrillation) Father Anesthesia Problems No Family History Social History Tobacco Use Smoking status: Never Smokeless tobacco: Never Substance Use Topics Alcohol use: Never Drug use: Never Current Outpatient Medications on File Prior to Visit Medication Sig Dexlansoprazole 60 mg CpDM take 1 capsule by mouth before breakfast ramelteon (ROZEREM) 8 mg tablet Take 1 tablet by mouth daily at bedtime. CPAP/BIPAP/OTHER Type .CPAPSettings into a note to see current settings/supplies/DME information. Simethicone (GAS RELIEF, SIMETHICONE,) 125 mg chewable tablet Take 2 tablets by mouth three times daily as needed. lactobacillus rhamnosus (CULTURELLE) 10 billion cell capsule Take 1 capsule by mouth once daily. tiZANidine (ZANAFLEX) 2 mg tablet Take 1 tablet by mouth every 8 hours as needed. traZODone (DESYREL) 50 mg tablet Take 150 mg by mouth daily at bedtime. atorvastatin (LIPITOR) 20 mg tablet Take 20 mg by mouth once daily. nystatin (MYCOSTATIN) cream Apply 1 application to affected area twice daily. vortioxetine (TRINTELLIX) 10 mg tablet Take 10 mg by mouth once daily. fluticasone (FLONASE) 50 mcg/actuation nasal spray Use 1 Morrison in each nostril once daily. carBAMazepine XR (TEGRETOL XR) 400 mg 12 hr tablet Take 400 mg by mouth q 12 HR. rOPINIRole (REQUIP) 2 mg tablet Take 2 mg by mouth twice daily. Takes 2 mg in the AM and 4 mg PM albuterol HFA (PROVENTIL HFA, VENTOLIN HFA) 90 mcg/actuation inhaler inhale 2 puffs by mouth INTO THE LUNGS every 4 hours if needed uyyawnhbpjn-bdnpafqzs-etpyebye (TRELEGY ELLIPTA) 100-62.5-25 mcg Inhale 1 Puff as instructed once daily. (Patient not taking: Reported on 10/11/2022) atenolol (TENORMIN) 50 mg tablet Take 50 mg by mouth once daily. No current facility-administered medications on file prior to visit. REVIEW OF SYSTEMS: General: Unintentional > 10% weight loss in < 6 months Neuro: Headaches Restless leg Seizures Respiratory: Asthma, Daily bronchodilator use for previous 3 months Cardiovascular: Positive for: Hypertension GI: See HPI : No history of UTI in past 6 weeks. No history of renal failure. Not currently on or requiring dialysis. No history of symptoms or problems. 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 : Denies Endocrine: No history of diabetes. Has not taken steroids within the past 30 days. No history of endocrinological symptoms or problems. Hematology: No history of bleeding or clotting disorder. Pt is not taking anti- coagulation or platelet medications. No history of hematological symptoms or problems. Oncology: No history of CA metastasis, chemo within 30 days, or radiotherapy within 90 days. Has not lost 10% of body wt in 6 months. No history of oncological symptoms or problems. Psych: Anxiety Musculoskeletal: Back pain and Joint pain Skin: Negative for lesions, rash and itching. Physical Exam There were no vitals taken for this visit. GENERAL: AAOx3, NAD EYES: Non-icteric, EOMI NOSE: Septum midline, no drainage ORAL: Tongue midline, no exudates NECK: Normal ROM PULM: Breathing non-labored without stridor or wheezing ABDOMEN: Reports soft, Non-distended, Non-tender EXTREMITIES: Normal ROM SKIN: Non-icteric, no diffuse rashes PSYCH: Appropriate mood and affect. SIGNATURE: Winston Hannah DO PATIENT NAME: Mary Leal DATE: 01/10/2023 TIME: 8:59 AM Please note that portions of this documentation have been copied from the prior encounter however all information has been appropriately reviewed and modified to reflect the current clinical status and plan of care. documented in [facility] Time In: 2:30 PM Time Out: 3:00 PM Present At Visit: Patient Clinician Location: Clinician via telehealth Patient Location: Meeting remotely by telephone today (patient unable to connect by video). Subjective CC: Chief Complaint Patient presents with Telehealth Audio/video Visit HPI: Mary Leal is a 52 y.o. female presenting to the [facility] on 01/06/2023 for medication management follow-up. Since last visit, we started Zoloft 50 mg for management of obsessive thoughts. Since last visit, she reports no relief from the addition of Zoloft. She reports that she still continues to worry repeatedly about the of her loved ones, with inability to quit or reassure herself. We also explored at length the time course of her symptoms, and she reported to me that she developed these type of thoughts over the last 12 months, and that she has had no lifetime history of obsessions, compulsions, or symptoms resembling this. She reports decreased mood, low energy, feelings of hopelessness, helplessness due to inability to manage worry. She confirms that she is still able to sleep restfully at night with a decreased dosage of ropinirole and that her primary care provider is in support of her new regimen. She denies appetite increases, weight gain, or paradoxical sedation from the administration of Zoloft. Denies any other medication changes or new stressors since last visit. Denies any drug use. OARRS: Reviewed, no concerns noted Current Medications Current Outpatient Medications Medication Instructions albuterol 90 mcg/actuation inhaler inhale 2 puffs by mouth INTO THE LUNGS every 4 hours if needed alendronate (FOSAMAX) 70 mg, oral, Every 7 days, Take in the morning with a full glass of water, on an empty stomach, and do not take anything else by mouth or lie down for the next 30 min. atorvastatin (Lipitor) 20 mg tablet 1 tablet, oral, Daily cholecalciferol (Vitamin D-3) 50 MCG (1999 UT) tablet oral, Daily cyanocobalamin (VITAMIN B-12) 1,000 mcg, oral, Daily RT cyclobenzaprine (FLEXERIL) 10 mg, oral, 3 times daily RT dexlansoprazole (Dexilant) [address] capsule take 1 capsule by mouth before breakfast galcanezumab (EMGALITY) 120 mg, subcutaneous, Every 28 days Nurtec ODT 75 mg, As needed rOPINIRole (REQUIP) 1 mg, oral, Daily rOPINIRole (REQUIP) 2 mg, oral, Nightly sertraline (Zoloft) 50 mg tablet take 1 tablet by mouth every morning traZODone (Desyrel) 50 mg tablet take 3 tablets by mouth at bedtime Previous Medication Trials Previous medication trials: Prozac - jaw clenching Lexapro - reported ineffective, tried for months, unclear dosage Citalopram - reported ineffective Clonidine - causes nightly awakenings every 2 hours Seroquel - ineffective Ativan - ineffective (too sedating) Review of Systems Review of Systems Respiratory: Negative for chest tightness and shortness of breath. Cardiovascular: Negative for chest pain. Neurological: Negative for dizziness, weakness, light-headedness, numbness and headaches. Psychiatric/Behavioral: Positive for dysphoric mood. Negative for decreased concentration, sleep disturbance and suicidal ideas. The patient is nervous/anxious. The patient is not hyperactive. Objective Rating Scales Today's JOLEEN-7 score was: JOLEEN-7 Total Score: 11 Today's PHQ-9 score was: Mental Status Exam Mental status exam is limited due to nature of telehealth encounter. Her reported mood is depressed. Speech is regular in rate, rhythm, and prosody. Denied suicidal ideation, homicidal ideation, auditory/visual hallucinations. No thought blocking appreciated during examination today. Insight and judgment appear to be fair. Vitals and Weight There were no vitals taken for this visit. No weight available Most Recent Labwork No results found for: WBC, HEMATOCRIT, HEMOGLOBIN, PLATELETS No results found for: SODIUM, POTASSIUM, CHLORIDE, CO2, CALCIUM, BUN, CREATININE, GLUCOSE, TRANSCHART GFR - AA, TRANSCHART GFR - NON AA, MAGNESIUM, PHOSPHORUS No results found for: PROTEIN, ALBUMIN, AST, ALT No results found for: HEMOGLOBIN A1C, CHOLESTEROL TOTAL, LDL CHOLESTEROL, HDL, CHOL/HDL, TRIGLYCERIDES No results found for: TSH, FREE T4, FOLATE, VITAMIN B 12 Assessment and Plan Assessment Major depressive disorder, severe, without psychosis Rule out OCD Plan We will meet next week to discuss ECT, as her symptoms of anxiety may be secondary to treatment refractory depression and not necessarily from OCD, as she has not had lifetime symptoms of OCD. Her symptoms of depression worsened significantly within the last year without any significant or clear medical stressors or life changes. Recommended that patient obtain chest x-ray, EKG, regular medical work-up prior to evaluation next week. No changes to medication at this time. RTC 1 week. Annette Swanson DO (more content not included)...[facility] 01-02-2023 NotePsychiatry Psychotherapy Progress Note Time In: 11:00 am Time Out: 11:53 am Present At Visit: Patient Clinician Location: Clinician in office Patient Location: Via telehealth in [place] Telehealth Information Telehealth Mode: Webex (video + audio) The patient was notified that using 3rd green party telecommunication application is not HIPAA compliant and may carry some privacy risks: Yes Video Consent Date of Telehealth Visit: 01/02/23 The patient was notified that using 3rd green party telecommunication application (e.g. Enge[employer]ni) is not HIPAA compliant and may carry some privacy risks: Yes This visit was conducted [id number] with the use of audio and video technology using Atempo between patient and the provider for a virtual visit. Verbal consent to provide and bill this service was obtained on: 01/02/23 No signature was obtained due to the COVID-19 pandemic. SUBJECTIVE CC: Chief Complaint Patient presents with Therapy HPI: Mary Leal is a 52 y.o. female presenting to the [facility] on 01/02/23 for management of depression and anxiety. Since the last visit, the patient's condition has improved Session activities included: reviewed and discussed acts of self-care and value-focused behaviors. Pt stated she had an epiphany last week and made the decision to have her niece and nephew live with their sister in [place]. Pt stated she is done raising kids and feels like the decision benefits all parties involved. She stated her niece, nephew, their sister and their biological mother are all in agreement with the decision. Pt reported feeling relief after making the decision. Discussed ways in which the pt has been prioritizing her needs. Pt stated she does not devote more time and/or energy tosomething that is not important or valuable to her. She stated she plans on having her sister over one weekend so she can be with her children before they go to [place]. Pt acknowledged she was not looking forward to her sister's visit but family is important to her and she feels it is something that has to be done. Emphasized pt is doing things in accordance with her value of family. Pt will continue to work on activities she can do for self-care. Current Presenting Symptoms/Problems: Mood: Anhedonia, Irritability, and Mood lability Anxiety: Generalized worry Trauma/Abuse: No abuse reported Other Symptoms/Disorders: N/A Onset/Timing: several years. Context: lack of support and of father (06/30/22) Severity: Moderate Sleep: Insomnia and Multiple awakenings Lifestyle Habits: Attempts healthy eating, No regular exercise, and Typical day lacks structure Medication Compliance: Greater than 90% Individualized Service Plan (ISP): Individualized Service Plan (ISP): Provider: Carmen Dorsey M.A. (clinical psychology clarifier) Frequency: 1-4 weeks Patient Needs: eleviate anxiety, space to process thoughts and emotions Patient Strengths: engaged in treatment, self-aware Concerns Referred Out: N/A Concerns Deferred: N/A Goal in Patient Words: not worry as much Discharge Criteria: Goals/objectives are completed or upon patient request. GOAL: manage symptoms of anxiety (Anxiety) Disciplines: Interdisciplinary Expected end: 10/10/23 OBJ: reduction of anxiety symptoms evidenced by 25% decrease in scores on JOLEEN-7 over 12 months (Anxiety) Disciplines: Interdisciplinary Expected end: 10/10/23 Therapeutic Interventions Provided: Assessed Mood, Assessed Thinking, Cognitive Behavioral Therapy, Discussed Medications, Socratic Questioning, and Supportive Psychotherapy Response to Intervention: Agreeable OBJECTIVE Rating Scales Today's JOLEEN-7 score was: N/A Today's PHQ-9 score was: N/A Other self-report scales: N/A Mental Status Exam Level of Alertness: alert Appearance: appears stated age, clean, and dressed appropriately Eye Contact: normal Build/Stature: N/A Gait and Ambulation: N/A Attitude Toward Examiner: cooperative and pleasant Behavior: normal Speech: clear and coherent reciprocal Language: expressive normal and receptive normal Mood: euthymic Affect: appropriate and broad Thought Process: coherent and goal-directed Thought Content: intact Orientation: oriented to person, oriented to place, and oriented to time Attention and Concentration: able to appropriately shift attention and able to focus Memory: able to comment on events and conversation content appropriate Estimated Intelligence: average Insight: intact Judgement: social judgment intact and test judgment intact Reliability: reliable Vitals and Weight There were no vitals taken for this visit. No weight available Current Medications Current Outpatient Medications: albuterol 90 mcg/actuation inhaler, inhale 2 puffs by mouth INTO THE LUNGS every 4 hours if needed, Disp: , Rfl: alend (more content not included)...[facility] 12-29-2022 Miscellaneous Notes* Addendum Note - Yoni Tuttle MD - 12/29/2022 3:37 PM ESTAddended by: YONI TUTTLE MD on: 12/29/2022 03:37 PM Modules accepted: Orders documented in this encounterLake[facility]02-20-[facility] NoteHNO ID: [id number] Author: Deb Booker RT(R) Service: Radiology Author Type: Technologist Type: Progress Notes Filed: 12/26/2022 3:17 PM Note Text: Radiology Service Progress Note PATIENT NAME: Mary Leal DATE OF SERVICE: December 26, 2022 TIME: 3:17 PM PATIENT IDENTITY VERIFICATION COMPLETED USING TWO (2) IDENTIFIERS: Name and Date of confirmed by patient verbally. FALL SCREENING: Has the patient had 2 falls in the last year or 1 fall with injury or currently using an Ambulatory Assistive Device (Walker, Cane, Wheelchair, Crutches, etc.)? No PATIENT GENDER DATA: Female. status: : No status: N/A PATIENT RELEVANT IMPLANT DATA REVIEWED: Yes RADIOLOGY DEPARTMENT: General X-ray: Exam(s) Completed: GI/ Procedure(s): Esophogram with barium contrast PERIPHERAL IV DATA: Not applicable SIGNED BY: RT Елена(R) December 26, 2022 3:17 [facility]02-20-2023 History of Present illness Narrative* RT Елена(R) - 12/26/2022 3:00 PM EST Radiology Service Progress Note PATIENT NAME: Mary Leal DATE OF SERVICE: December 26, 2022 TIME: 3:17 PM PATIENT IDENTITY VERIFICATION COMPLETED USING TWO (2) IDENTIFIERS: Name and Date of confirmedby patient verbally. FALL SCREENING: Has the patient had 2 falls in the last year or 1 fall with injury or currently using an Ambulatory Assistive Device (Walker, Cane, Wheelchair, Crutches, etc.)? No PATIENT GENDER DATA: Female. status: : No status: N/A PATIENT RELEVANT IMPLANT DATA REVIEWED: Yes RADIOLOGY DEPARTMENT: General X-ray: Exam(s) Completed: GI/ Procedure(s): Esophogram with barium contrast PERIPHERAL IV DATA: Not applicable SIGNED BY: RT Елена(R) December 26, 2022 3:17 PM documented in this encounterL[facility] Miscellaneous Notes* Telephone Encounter - Uziel Serrano RN - 12/23/2022 4:36 PM EST Message being addressed in another encounter that was forwarded to provider documented in this encounterLake[facility]02-16-2023 NoteHNO ID: [id number] Author: Winston Hannah, DO Service: ? Author Type: Physician Type: Progress Notes Filed: 12/22/2022 9:32 AM Note Text: [facility] [place] Gastroparesis/Dysmotility Follow Up This encounter was provided via two-way, live video teleconferencing. The visit was conducted virtually as a convenience to the patient and to reduce potential exposure to COVID-19. The patient's identity was confirmed at the start of the visit, and the patient did not require assistance during the encounter. Technical difficulties were not encountered. 20 minutes were spent on the teleconference with the patient. An additional 15 minutes was required for chart review/preparation, documentation, orders, and care coordination. SERVICE DATE: 12/22/2022 SERVICE TIME: 8:57 AM PRIMARY CARE PHYSICIAN: Eliceo Willams, DO Assessment ASSESSMENT 52 year old female with medical refractory gastroparesis in the setting of lower GI dysmotility, now status post 03/2022 total abdominal colectomy with ileorectal anastomosis. Despite improvements in constipation, obstipation as well as bloating she continued to struggle with daily severe medically refractory gastroesophageal reflux as well as nausea, vomiting, and upper abdominal pains. Now s/p 12/07/2022 EGD with Pyloric Dilation. During this procedure Montiel placement was aborted due to the presence of LA D esophagitis. Since the procedure patient has had marked symptomatic improvement including new tolerance of solid foods, as well as improved fullness/bloating and resolution of nausea/vomiting. This is extraordinarily peculiar given that her repeat smart pill again showed normal gastric emptying time <4 hours. Overall patient's presentation is suggestive of functional dyspepsia with pylorospasm in the setting of severe gastroesophageal reflux disease. We will continue her work-up and future considerations include laparoscopic hiatal hernia repair with partial fundoplication (toupee) +/- pyloroplasty/pyloromyotomy. PLAN I discussed surgical therapy for gastroparesis in detail. Mary Leal is candidate for continue work up and medical therapies. -Complete Barium Esophagram -Smart Pill Reviewed -Continue Dexilant every day -GERD Lifestyle modifications and diet reviewed -GP diet as tolerated -Follow up in 4-6 weeks with completed esophagram NAME: Mary Leal CLINIC NO: [id number] CHIEF COMPLAINT Idiopathic Gastroparesis HISTORY OF PRESENT ILLNESS Mary Leal is a 52 year old female who comes in today for surgical evaluation for management of gastroparesis. The patient has been evaluated thoroughly including an EGD, and gastric emptying study. History is notable for bipolar, depression, endometriosis, restless leg syndrome, ADHD, PTSD, asthma, HTN, appendectomy, anal fissure, and total hysterectomy GI issues began around 2019. Still cannot eat solid foods. Pain and nausea are the primary drivers. She vomits most things that she eats. Currently only to eat jello and purees 3 main symptoms are nausea, pain, and epigastric burning. Since TAC OANH, only thing that improved was constipation and some bloating. INTERVAL HPI: Since the procedure patient reports that she actually feels a lot better. Prior to this, she could not eat any solid foods. Now she is consuming most typical foods like chicken spaghetti etc. Duration of symptoms (months): 9837-8839 Weight changes in last 3 months: Stable GERD: Doing better since back on medication, heartburn resolved, but persistent regurgitation. Dexilant daily. Belching remains a major issue. Dysphagia: Sticking sensations in the lower neck, frequently requires sips of water between bites. 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 - LA Grade D reflux esophagitis with no bleeding. - Z line irregular 36cm from incisors - Normal mucosa was found in the stomach. - Gastroparesis. Dilated to 20mm - Normal examined duodenum. - No specimens collected. - Montiel was not placed due to severe esophagitis Gastric Emptying Study Results (12/2019) 1 Hour = 94% Retained 2 Hour = 94% Retained 4 Hour = 45% Retained SMART Pill (11/2022) Transit Times (h:min) GET: 3:20 ? 4 h suggests delayed gastric emptying. SBTT: 3:30 Normal: 2.5 - 6 h CTT: 17:41 > 59 h indicates delayed colonic transit. SLBTT: 21:11 > 64 h indicates delayed combined bowel transit. WGTT: 24:32 Normal (more content not included)...[facility] 12-22-2022 History of Present illness Narrative* Winston Hannah, DO - 12/22/2022 8:52 AM EST Images from the original note were not included. [facility] [place] Gastroparesis/Dysmotility Follow Up This encounter was provided via two-way, live video teleconferencing. The visit was conducted virtually as a convenience to the patient and to reduce potential exposure to COVID-19. The patient's identity was confirmed at the start of the visit, and the patient did not require assistance during theencounter. Technical difficulties were not encountered. 20 minutes were spent on the teleconference with the patient. An additional 15 minutes was required for chart review/preparation, documentation, orders, and care coordination. SERVICE DATE: 12/22/2022 SERVICE TIME: 8:57 AM PRIMARY CARE PHYSICIAN: Eliceo Willams DO Assessment ASSESSMENT 52 year old female with medical refractory gastroparesis in the setting of lower GI dysmotility, now status post 03/2022 total abdominal colectomy with ileorectal anastomosis. Despite improvements in constipation, obstipation as well as bloating she continued to struggle with daily severe medically r efractory gastroesophageal reflux as well as nausea, vomiting, and upper abdominal pains. Now s/p 12/07/2022 EGD with Pyloric Dilation. During this procedure Montiel placement was aborted due to the presence of LA D esophagitis. Since the procedure patient has had marked symptomatic improvement including new tolerance of solid foods, as well as improved fullness/bloating and resolution of nausea/vomiting. This is extraordinarily peculiar given that her repeat smart pill again showed normal gastric emptying time <4 hours. Overall patient's presentation is suggestive of functional dyspepsia with pylorospasm in the setting of severe gastroesophageal reflux disease. We will continue her work-up and future considerations include laparoscopic hiatal hernia repair with partial fundoplication (tohola) +/- pyloroplasty/pyloromyotomy. PLAN I discussed surgical therapy for gastroparesis in detail. Mary Leal is candidate for continuework up and medical therapies. -Complete Barium Esophagram -Smart Pill Reviewed -Continue Dexilant every day -GERD Lifestyle modifications and diet reviewed -GP diet as tolerated -Follow up in 4-6 weeks with completed esophagram NAME: Mary Leal CLINIC NO: [id number] CHIEF COMPLAINT Idiopathic Gastroparesis HISTORY OF PRESENT ILLNESS Mary Leal is a 52 year old female who comes in today for surgical evaluation for management of gastroparesis. The patient has been evaluated thoroughly including an EGD, and gastric emptying study. History is notable for bipolar, depression, endometriosis, restless leg syndrome, ADHD, PTSD, asthma, HTN, appendectomy, anal fissure, and total hysterectomy GI issues began around 2019. Still cannot eat solid foods. Pain and nausea are the primary drivers. She vomits most things that she eats. Currently only to eat jello and purees 3 main symptoms are nausea, pain, and epigastric burning. Since TAC OANH, only thing that improved was constipation and some bloating. INTERVAL HPI: Since the procedure patient reports that she actually feels a lot better. Prior to this, she could not eat any solid foods. Now she is consuming most typical foods like chicken spaghetti etc. Duration of symptoms (months): 9036-2945 Weight changes in last 3 months: Stable GERD: Doing better since back on medication, heartburn resolved, but persistent regurgitation. Dexilant daily. Belching remains a major issue. Dysphagia: Sticking sensations in the lower neck, frequently requires sips of water between bites. 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 - LA Grade D reflux esophagitis with no bleeding. - Z line irregular 36cm from incisors - Normal mucosa was found in the stomach. - Gastroparesis. Dilated to 20mm - Normal examined duodenum. - No specimens collected. - Montiel was not placed due to severe esophagitis Gastric Emptying Study Results (12/2019) 1 Hour = 94% Retained 2 Hour = 94% Retained 4 Hour = 45% Retained SMART Pill (11/2022) Transit Times (h:min) GET: 3:20 ? 4 h suggests delayed gastric emptying. SBTT: 3:30 Normal: 2.5 - 6 h CTT: 17:41 > 59 h indicates delayed colonic transit. SLBTT: 21:11 > 64 h indicates delayed combined bowel transit. WGTT: 24:32 Normal: < 73 h Gastric pH High: 6.3 Low: 0.8 Range annotations (h:min) Start: 2:58, End: 3:28 30 min. prior Contractions/min: 2.27 Mean amplitude: 14.5 Motility index: 55.52 Start: 3:28, End: 3:58 30 min. post Contractions/min: 1.4 Mean amplitude: 16.92 Motility index: 35.44 Point annotations (h:min) Interpretations and Recommendations Interpretations Observed pH baseline below 4 in the stomach., No evidence of additional meal 6 hours into test., Observed a pH change of 3 or more units., Did not observe a gradually increasing pH profile, Observed normal gastric emptying. Clinical Management Plans Normal gastric transit Normal small bowel transit [id number] transit in the distal bowel consistent delay post anastomosis SMART Pill (08/2021) Transit Times (h:min) GET: 3:24 ? 4 h suggests delayed gastric emptying. SBTT: 4:43 Normal: 2.5 - 6 h CTT: 94:45 > 59 h indicates delayed colonic transit. SLBTT: 99:29 > 64 h indicates delayed combined bowel transit. WGTT: 102:54 Normal: < 73 h Gastric pH High: 7.2 Low: 0.9 Range annotations (h:min) Start: 2:59, End: 3:29 30 min. prior Contractions/min: 5.4 Mean amplitude: 15.46 Motility index: 125.61 Start: 3:29, End: 3:59 30 min. post Contractions/min: 5.55 Mean amplitude: 16.56 Motility index: 133.76 Point annotations (h:min) Interpretations and Recommendations Interpretations Observed pH baseline below 4 in the stomach., No evidence of additional meal 6 hours into test., Observed a pH change of 3 or more units., Observed a gradually increasing pH profile., Observed normal gastric emptying., Observed normal SBTT., Observed delayed CTT. Clinical Management Plans Normal gastric transit no evidence of GP Normal small bowel transit Severely delayed colonic transit EGG (N/A) Not Ordered Gastroparesis cardinal symptom index Post-Pyloric Dilation 1. nausea 0 (4) 2. retching 0 (3) 3. vomiting 0 (3) 4. stomach fullness 3 (4) 5. not able to finish a normal-sized meal 0 (5) 6. feeling excessively full after meals 1 (5) 7. loss of appetite 1 (5) 8. bloating (feeling like you need to loosen your clothes) 0 (5) 9. stomach or belly visibly larger 0 (3) GCSI - 4.03 Scale (0-none; 1-very mild; 2-mild; 3-moderate; 4-severe; 5-very severe) PAST HISTORY PAST MEDICAL HISTORY Diagnosis Date Asthma as a child Bipolar 1 disorder (HCC) Gastroparesis History of laparoscopic-assisted vaginal hysterectomy 10/2015 for endometriosis HTN (hypertension) PTSD (post-traumatic stress disorder) PAST SURGICAL HISTORY Procedure Laterality Date COLONOSCOPY EGD 2019 with dilation FOOT SURGERY HX Right 10/2022 reconstruction PAST SURGICAL HISTORY OF left foot reconstruction PAST SURGICAL HISTORY OF cervical neck surgery PAST SURGICAL HISTORY OF Left ACL PAST SURGICAL HISTORY OF anal fissure PAST SURGICAL HISTORY OF Left CTR PAST SURGICAL HISTORY OF appendectomy PAST SURGICAL HISTORY OF bilat bunionectomy PAST SURGICAL HISTORY OF 12/24/2021 laparoscopic proctopexy with diverting loop ileostomy, anterior & posterior colporrhaphy and sling 12/24/2021 TONSILLECTOMY HX 02/11/2021 and septoplasty TONSILLECTOMY HX 07/2021 revision VAGINAL HYSTERECTOMY 2014 LAV 10/2015 for endometriosis, has remaining both FAMILY HISTORY Problem Relation Age of Onset Hypertension Mother Dementia Mother Hypertension Father other (atrial fibrillation) Father Anesthesia Problems No Family History Social History Tobacco Use Smoking status: Never Smokeless tobacco: Never Substance Use Topics Alcohol use: Never Drug use: Never Current Outpatient Medications on File Prior to Visit Medication Sig Dexlansoprazole 60 mg CpDM take 1 capsule by mouth before breakfast ramelteon (ROZEREM) 8 mg tablet Take 1 tablet by mouth daily at bedtime. CPAP/BIPAP/OTHER Type .CPAPSettings into a note to see current settings/supplies/DME information. Simethicone (GAS RELIEF, SIMETHICONE,) 125 mg chewable tablet Take 2 tablets by mouth three times daily as needed. lactobacillus rhamnosus (CULTURELLE) 10 billion cell capsule Take 1 capsule by mouth once daily. tiZANidine (ZANAFLEX) 2 mg tablet Take 1 tablet by mouth every 8 hours as needed. traZODone (DESYREL) 50 mg tablet Take 150 mg by mouth daily at bedtime. atorvastatin (LIPITOR) 20 mg tablet Take 20 mg by mouth once daily. nystatin (MYCOSTATIN) cream Apply 1 application to affected area twice daily. vortioxetine (TRINTELLIX) 10 mg tablet Take 10 mg by mouth once daily. fluticasone (FLONASE) 50 mcg/actuation nasal spray Use 1 Morrison in each nostril once daily. carBAMazepine XR (TEGRETOL XR) 400 mg 12 hr tablet Take 400 mg by mouth q 12 HR. rOPINIRole (REQUIP) 2 mg tablet Take 2 mg by mouth twice daily. Takes 2 mg in the AM and 4 mg PM albuterol HFA (PROVENTIL HFA, VENTOLIN HFA) 90 mcg/actuation inhaler inhale 2 puffs by mouth INTO THE LUNGS every 4 hours if needed xxhajurprrx-fwiltgwqg-vbngqjro (TRELEGY ELLIPTA) 100-62.5-25 mcg Inhale 1 Puff as instructed once daily. (Patient not taking: Reported on 10/11/2022) atenolol (TENORMIN) 50 mg tablet Take 50 mg by mouth once daily. No current facility-administered medications on file prior to visit. REVIEW OF SYSTEMS: General: Unintentional > 10% weight loss in < 6 months Neuro: Headaches Restless leg Seizures Respiratory: Asthma, Daily bronchodilator use for previous 3 months Cardiovascular: Positive for: Hypertension GI: See HPI : No history of UTI in past 6 weeks. No history of renal failure. Not currently on or requiring dialysis. No history of symptoms or problems. 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 : Denies Endocrine: No history of diabetes. Has not taken steroids within the past 30 days. No history of endocrinological symptoms or problems. Hematology: No history of bleeding or clotting disorder. Pt is not taking anti- coagulation or platelet medications. No history of hematological symptoms or problems. Oncology: No history of CA metastasis, chemo within 30 days, or radiotherapy within 90 days. Has not lost 10% of body wt in 6 months. No history of oncological symptoms or problems. Psych: Anxiety Musculoskeletal: Back pain and Joint pain Skin: Negative for lesions, rash and itching. Physical Exam There were no vitals taken for this visit. GENERAL: AAOx3, NAD EYES: Non-icteric, EOMI NOSE: Septum midline, no drainage ORAL: Tongue midline, no exudates NECK: Normal ROM PULM: Breathing non-labored without stridor or wheezing ABDOMEN: Reports soft, Non-distended, Non-tender EXTREMITIES: Normal ROM SKIN: Non-icteric, no diffuse rashes PSYCH: Appropriate mood and affect. SIGNATURE: Winston Hannah DO PATIENT NAME: Mary Leal DATE: 12/22/2022 TIME: 8:57 AM Please note that portions of this documentation have been copied from the prior encounter however all information has been appropriately reviewed and modified to reflect the current clinical status and plan of care. documented in this encounterL[facility]02-15-2023 NotePROCEDURE: XR FOOT RT MIN 3 VIEWS HISTORY: Pain in right foot COMPARISON: None. FINDINGS: BONES:Calcaneal osteotomy with posterior realignment and anterior wedge placement. Osteotomy and wedge placement within medial cuneiform. Single screw within head of first metatarsal. SOFT TISSUES:No visible soft tissue swelling. EFFUSION:None visible. OTHER: Negative. IMPRESSION: 1. Stable surgical changes without evidence of hardware failure or change in alignment. Electronically authenticated by: ZAIDA ACOSTA Date: 2022-12-21 12:24[facility]02[facility] NoteHNO ID: [id number] Author: Mary Obrien MD Service: ? Author Type: Physician Type: Progress Notes Filed: 12/15/2022 8:51 AM Note Text: COLORECTAL SURGERY December 15, 2022 Mary Leal Virtual Visit Chief Complaint: follow up/ pelvic floor dysfuntion History of Present Illness: Mary Leal is a 52 year old female presents for a follow up evaluation after undergoing a Laparoscopic Total Abdominal Colectomy, Ileostomy Takedown, Ileorectal Anastomosis, Flexible Sigmoidoscopy on 03/28/2022 for colonic inertia and pelvic floor dysfunction. She would like to discuss her surgical procedure in detail. Was told by Dr. Masters she had remaining colon. Flex sig 11/2022: - The area at 20 cm proximal to the anus is normal. - No specimens collected. Recommendation: - Discharge patient to home. Recent symptoms: Recent upper abdominal pain, N/V and more frequent loose bowel movements. Underwent dilation of the pylorus a few weeks ago with almost complete resolution of symptoms and return to 1-2 BM daily. Denies pushing or staining, says she is happy with bowel function after this most recent upper GI procedure. PAST MEDICAL HISTORY Diagnosis Date Asthma as a child Bipolar 1 disorder (HCC) Gastroparesis History of laparoscopic-assisted vaginal hysterectomy 10/2015 for endometriosis HTN (hypertension) PTSD (post-traumatic stress disorder) PAST SURGICAL HISTORY Procedure Laterality Date COLONOSCOPY EGD 2019 with dilation FOOT SURGERY HX Right 10/2022 reconstruction PAST SURGICAL HISTORY OF left foot reconstruction PAST SURGICAL HISTORY OF cervical neck surgery PAST SURGICAL HISTORY OF Left ACL PAST SURGICAL HISTORY OF anal fissure PAST SURGICAL HISTORY OF Left CTR PAST SURGICAL HISTORY OF appendectomy PAST SURGICAL HISTORY OF bilat bunionectomy PAST SURGICAL HISTORY OF 12/24/2021 laparoscopic proctopexy with diverting loop ileostomy, anterior AND posterior colporrhaphy and sling 12/24/2021 TONSILLECTOMY HX 02/11/2021 and septoplasty TONSILLECTOMY HX 07/2021 revision VAGINAL HYSTERECTOMY 2014 LAV 10/2015 for endometriosis, has remaining both Current Outpatient Medications Medication Sig Dispense Refill sucralfate (CARAFATE) 100 mg/mL suspension Take 10 mL by mouth twice daily. 600 mL 2 Cholecalciferol, Vitamin D3, 25 mcg (1,000 unit) cap Take 1,000 Units by mouth once daily. cyanocobalamin (VITAMIN B-12) 1,000 mcg tab Take 1,000 mcg by mouth once daily. cyclobenzaprine (FLEXERIL) 10 mg tablet Take by mouth three times daily. galcanezumab-gnlm (EMGALITY SYRINGE) 120 mg/mL syringe Inject subcutaneously once every month. Do not shake. Dexlansoprazole 60 mg CpDM take 1 capsule by mouth before breakfast 30 capsule 5 CPAP/BIPAP/OTHER Type .CPAPSettings into a note to see current settings/supplies/DME information. 1 Each 0 Simethicone (GAS RELIEF, SIMETHICONE,) 125 mg chewable tablet Take 2 tablets by mouth three times daily as needed. 180 tablet 5 traZODone (DESYREL) 50 mg tablet Take 150 mg by mouth daily at bedtime. atorvastatin (LIPITOR) 20 mg tablet Take 20 mg by mouth once daily. rOPINIRole (REQUIP) 2 mg tablet Take 2 mg by mouth twice daily. Takes 2 mg in the AM and 4 mg PM dizwnqyraag-caxvvwkdh-qtwlhqpf (TRELEGY ELLIPTA) 100-62.5-25 mcg Inhale 1 Puff as instructed once daily. No current facility-administered medications for this visit. ALLERGIES Allergen Reactions Risperidone Intolerance Breast discharge FAMILY HISTORY Problem Relation Age of Onset Hypertension Mother Dementia Mother Hypertension Father other (atrial fibrillation) Father Anesthesia Problems No Family History Social History Tobacco Use Smoking status: Never Smokeless tobacco: Never Substance Use Topics Alcohol use: Never Drug use: Never Assessment Assessment and Plan: Mary Leal is a 52 year old female with pelvic floor dysfunction and colonic inertia s/p TAC, Ileostomy Takedown, Ileorectal Anastomosis 03/28/2022 who presents for follow-up with epigastric pain, N/V, anorexia resolved after pyloric dilation. Discussed that she has no remaining colon and that her small bowel is connected directly to her rectum. Anastomosis not described in detail, but no apparent concern at time of recent flex sig by Dr. Masters. Likely symptoms secondary to upper GI dysmotility or pyloric issues given resolution after dilation. RTC PRN Medical Decision Making: Data Reviewed: Tests AND Documents Reviewed/ordered: Review of prior notes from myself, GI Review of Imaging: CT Abdomen, CT Pelvis Review of Procedures / Tests: Flexible Sigmoidoscopy I have independently interpreted: CT Abdomen, CT Pelvis I have discussed Mary Leal's treatment plan and/or results with the patient, Dr. Masters. I spent a total of 40 minutes on the date of the service which included preparing to see the patient, yzkj-bk-ctuo patient care, co (more content not included)...[facility]02-09-2023 History of Present illness Narrative* Mary Obrien MD - 12/15/2022 8:40 AM EST COLORECTAL SURGERY December 15, 2022 Mary Ornelasgs Virtual Visit Chief Complaint: follow up/ pelvic floor dysfuntion History of Present Illness: Mary Leal is a 52 year old female presents for a follow up evaluation after undergoing a Laparoscopic Total Abdominal Colectomy, Ileostomy Takedown, Ileorectal Anastomosis, Flexible Sigmoidoscopy on 03/28/2022 for colonic inertia and pelvic floor dysfunction. She would like to discuss her surgical procedure in detail. Was told by Dr. Masters she had remaining colon. Flex sig 11/2022: - The area at 20 cm proximal to the anus is normal. - No specimens collected. Recommendation: - Discharge patient to home. Recent symptoms: Recent upper abdominal pain, N/V and more frequent loose bowel movements. Underwent dilation of the pylorus a few weeks ago with almost complete resolution of symptoms and return to 1-2 BM daily. Denies pushing or staining, says she is happy with bowel function after this most recent upper GI procedure. PAST MEDICAL HISTORY Diagnosis Date Asthma as a child Bipolar 1 disorder (HCC) Gastroparesis History of laparoscopic-assisted vaginal hysterectomy 10/2015 for endometriosis HTN (hypertension) PTSD (post-traumatic stress disorder) PAST SURGICAL HISTORY Procedure Laterality Date COLONOSCOPY EGD 2019 with dilation FOOT SURGERY HX Right 10/2022 reconstruction PAST SURGICAL HISTORY OF left foot reconstruction PAST SURGICAL HISTORY OF cervical neck surgery PAST SURGICAL HISTORY OF Left ACL PAST SURGICAL HISTORY OF anal fissure PAST SURGICAL HISTORY OF Left CTR PAST SURGICAL HISTORY OF appendectomy PAST SURGICAL HISTORY OF bilat bunionectomy PAST SURGICAL HISTORY OF 12/24/2021 laparoscopic proctopexy with diverting loop ileostomy, anterior & posterior colporrhaphy and sling 12/24/2021 TONSILLECTOMY HX 02/11/2021 and septoplasty TONSILLECTOMY HX 07/2021 revision VAGINAL HYSTERECTOMY 2014 [facility] 10/2015 for endometriosis, has remaining both Current Outpatient Medications Medication Sig Dispense Refill sucralfate (CARAFATE) 100 mg/mL suspension Take 10 mL by mouth twice daily. 600 mL 2 Cholecalciferol, Vitamin D3, 25 mcg (1,000 unit) cap Take 1,000 Units by mouth once daily. cyanocobalamin (VITAMIN B-12) 1,000 mcg tab Take 1,000 mcg by mouth once daily. cyclobenzaprine (FLEXERIL) 10 mg tablet Take by mouth three times daily. galcanezumab-gnlm (EMGALITY SYRINGE) 120 mg/mL syringe Inject subcutaneously once every month. Do not shake. Dexlansoprazole 60 mg CpDM take 1 capsule by mouth before breakfast 30 capsule 5 CPAP/BIPAP/OTHER Type .CPAPSettings into a note to see current settings/supplies/DME information. 1Each 0 Simethicone (GAS RELIEF, SIMETHICONE,) 125 mg chewable tablet Take 2 tablets by mouth three times daily as needed. 180 tablet 5 traZODone (DESYREL) 50 mg tablet Take 150 mg by mouth daily at bedtime. atorvastatin (LIPITOR) 20 mg tablet Take 20 mg by mouth once daily. rOPINIRole (REQUIP) 2 mg tablet Take 2 mg by mouth twice daily. Takes 2 mg in the AM and 4 mg PM losniwajaif-ekdsiwgot-aviemyob (TRELEGY ELLIPTA) 100-62.5-25 mcg Inhale 1 Puff as instructed once daily. No current facility-administered medications for this visit. ALLERGIES Allergen Reactions Risperidone Intolerance Breast discharge FAMILY HISTORY Problem Relation Age of Onset Hypertension Mother Dementia Mother Hypertension Father other (atrial fibrillation) Father Anesthesia Problems No Family History Social History Tobacco Use Smoking status: Never Smokeless tobacco: Never Substance Use Topics Alcohol use: Never Drug use: Never Assessment Assessment and Plan: Mary Leal is a 52 year old female with pelvic floor dysfunction and colonic inertia s/p TAC, Ileostomy Takedown, Ileorectal Anastomosis 03/28/2022 who presents for follow-up with epigastric pain, N/V, anorexia resolved after pyloric dilation. Discussed that she has no remaining colon and that her small bowel is connected directly to her rectum. Anastomosis not described in detail, but no apparent concern at time of recent flex sig by Dr. Masters. Likely symptoms secondary to upper GI dysmotility or pyloric issues given resolution after dilation. RTC PRN Medical Decision Making: Data Reviewed: Tests & Documents Reviewed/ordered: Review of prior notes from myself, GI Review of Imaging: CT Abdomen, CT Pelvis Review of Procedures / Tests: Flexible Sigmoidoscopy I have independently interpreted: CT Abdomen, CT Pelvis I have discussed Mary Leal's treatment plan and/or results with the patient, Dr. Msaters. I spent a total of 40 minutes on the date of the service which included preparing to see the patient, [id number] patient care, completing clinical documentation, obtaining and/or reviewing separately obtained history, counseling and educating the patient/family/caregiver, ordering medications, quincy ts, or procedures, communicating with other HCPs (not separately reported), independently interpreting results (not separately reported), communicating results to the patient/family/caregiver, and care coordination (not separately reported). Mary Obrien MD Colorectal Surgery documented in this encounterLake[facility]02-08-2023 Miscellaneous Notes* Telephone Encounter - Patricia Benton RN - 12/14/2022 5:19 PM EST Several attempts to reach pt unsuccessful - MC sent. * Telephone Encounter - Barber Marie - 12/02/2022 8:39 AM EST SLEEP PHONE Name of caller: Mary Leal Relationship to patient : Self In-state or [id number] patient: In-State Was permission obtained from patient? Yes Patient identified by Name and Date of . ( Mary Leal, 1970). Yes Reason for Call : Patient said her and Patricia was chatting through my chart and Patricia garza about 5:15 yesterday. Number to return call [phone] Okay to leave a message ? Yes Last office visit 10/14/[address] Kusum vines Next office visit 01/13/[address] Tuttle virtual documented in this encounterLakehealth [facility]point [facility]02-06-2023 NotePsychiatry Psychotherapy Progress Note Time In: 8:30 am Time Out: 9:25 am Present At Visit: Patient Clinician Location: Clinician in office Patient Location: Via telehealth in [place] Telehealth Information Telehealth Mode: Webex (video + audio) The patient was notified that using 3rd green party telecommunication application is not HIPAA compliant and may carry some privacy risks: Yes Video Consent Date of Telehealth Visit: 12/12/22 The patient was notified that using 3rd green party telecommunication application (e.g. Engezni) is not HIPAA compliant and may carry some privacy risks: Yes This visit was conducted [id number] with the use of audio and video technology using Qompiumex between patient and the provider for a virtual visit. Verbal consent to provide and bill this service was obtained on: 12/12/22 No signature was obtained due to the COVID-19 pandemic. SUBJECTIVE CC: Chief Complaint Patient presents with Therapy HPI: Mary Leal is a 52 y.o. female presenting to the [facility] Psychiatry Clinic on 12/12/22 for management of depression and anxiety. Since the last visit, the patient's condition has improved Session activities included: pt provided update on status of health and discussed acts of self-care and value-focused behaviors. Pt stated she has been sleeping through the night due to an adjustment with her medication (Vyvanse reduced from 2 mg to 1 mg). Pt stated she feels more rested and pt appeared more alert (eyelids less heavy, less frequent yawning). Pt provided an update on her health. She recently had a stomach procedure which has reduced pain, nausea, and allowed her to eat solid foods. Emphasized the significant changes in the past week that have led to pt's improved health. Explored ways pt can take care of herself beyond basic health necessities. Pt identified spending time with her mother, going out to eat with her partner, and reaching out to her friend as activities that are important to her. Pt set intention this week to take initiative and help her children find ways to take initiative with chores around the house. Current Presenting Symptoms/Problems: Mood: Anhedonia, Irritability, and Mood lability Anxiety: Generalized worry Trauma/Abuse: No abuse reported Other Symptoms/Disorders: N/A Onset/Timing: several years. Context: lack of support and of father (06/30/22) Severity: Moderate Sleep: Insomnia and Multiple awakenings Lifestyle Habits: Attempts healthy eating, No regular exercise, and Typical day lacks structure Medication Compliance: Greater than 90% Individualized Service Plan (ISP): Individualized Service Plan (ISP): Provider: Carmen Dorsey M.A. (clinical psychology clarifier) Frequency: 1-4 weeks Patient Needs: eleviate anxiety, space to process thoughts and emotions Patient Strengths: engaged in treatment, self-aware Concerns Referred Out: N/A Concerns Deferred: N/A Goal in Patient Words: not worry as much Discharge Criteria: Goals/objectives are completed or upon patient request. GOAL: manage symptoms of anxiety (Anxiety) Disciplines: Interdisciplinary Expected end: 10/10/23 OBJ: reduction of anxiety symptoms evidenced by 25% decrease in scores on JOLEEN-7 over 12 months (Anxiety) Disciplines: Interdisciplinary Expected end: 10/10/23 Therapeutic Interventions Provided: Assessed Mood, Assessed Thinking, Cognitive Behavioral Therapy, Discussed Medications, Socratic Questioning, and Supportive Psychotherapy Response to Intervention: Agreeable OBJECTIVE Rating Scales Today's JOLEEN-7 score was: N/A Today's PHQ-9 score was: N/A Other self-report scales: N/A Mental Status Exam Level of Alertness: alert Appearance: appears stated age, clean, and dressed appropriately Eye Contact: normal Build/Stature: N/A Gait and Ambulation: N/A Attitude Toward Examiner: cooperative and pleasant Behavior: normal Speech: clear and coherent reciprocal Language: expressive normal and receptive normal Mood: euthymic Affect: appropriate and broad Thought Process: coherent and goal-directed Thought Content: intact Orientation: oriented to person, oriented to place, and oriented to time Attention and Concentration: able to appropriately shift attention and able to focus Memory: able to comment on events and conversation content appropriate Estimated Intelligence: average Insight: intact Judgement: social judgment intact and test judgment intact Reliability: reliable Vitals and Weight There were no vitals taken for this visit. 64.9kg Current Medications Current Outpatient Medications: albuterol 90 mcg/actuation inhaler, inhale 2 puffs by mouth INTO THE LUNGS every 4 hours if needed, Disp: , Rfl: alendronate (Fosamax) 70 mg/75 mL solution, Take 70 mg by mouth every 7 (seven) days. Take in the morning with a full glass of water, on an (more content not included)...[facility]02-06-2023 Miscellaneous Notes* Telephone Encounter - See Wong RN - 12/12/2022 9:[address] Obrien sent my chart message to respond to this phone encounter and previous my chart message. * Telephone Encounter - Madyson Hunter - 12/09/2022 3:22 PM EST Patient called and left message regarding post operative 03/2022 total laparoscopic colectomy and concerns regarding symptoms and follow up testing return call to [phone] documented in this encounterLakehealth [facility]point [facility]02-03-2023 NoteDepartment of Psychiatry Outpatient Progress Note Time In: 3 PM Time Out: 3:30 PM Present At Visit: Patient Clinician Location: Clinician in office Patient Location: In office Subjective CC: Chief Complaint Patient presents with Telehealth Audio/video Visit [email or web address] HPI: Mary Leal is a 52 y.o. female presenting to the [facility] Psychiatry Clinic on 12/09/21. ' Between visits (approximately 7-8 days ago), we reduced her total daily dose of ropinorole from 6mg (2mg qAM + 4mg at bedtime) to 3mg (1mg qAM + 2mg at bedtime) and she reports that she has been able to sleep from 9pm to 6am without difficulty for the last 7 days. She denies difficulty with mood, irritability, insomnia, and appetite changes. Due to improved sleep, denies suicidal ideation, homicidal ideation, and delusions. However, she continues to report chronic, 4 to 6 hours a day ruminating about the of her loved ones. She reports that the anxiety is ego dystonic and that she cannot be reassured or calm down. She reports that these obsessions and compulsions (need to call family to verify) are frustrating for her. Denies any drug use. Previous medication trials: Prozac - jaw clenching Zoloft - hungrier, but was on another antipsychotic at that time Lexapro - reported ineffective, tried for months, unclear dosage Citalopram - reported ineffective Clonidine - causes nightly awakenings every 2 hours Seroquel - ineffective Ativan - ineffective (too sedating) OARRS: Reviewed, no concerns noted Current Medications Current Outpatient Medications Medication Instructions albuterol 90 mcg/actuation inhaler inhale 2 puffs by mouth INTO THE LUNGS every 4 hours if needed alendronate (FOSAMAX) 70 mg, oral, Every 7 days, Take in the morning with a full glass of water, on an empty stomach, and do not take anything else by mouth or lie down for the next 30 min. atorvastatin (Lipitor) 20 mg tablet 1 tablet, oral, Daily cholecalciferol (Vitamin D-3) 50 MCG (2000 UT) tablet oral, Daily cyanocobalamin (VITAMIN B-12) 1,000 mcg, oral, Daily RT cyclobenzaprine (FLEXERIL) 10 mg, oral, 3 times daily RT dexlansoprazole (Dexilant) [address] capsule take 1 capsule by mouth before breakfast galcanezumab (EMGALITY) 120 mg, subcutaneous, Every 28 days Nurtec ODT 75 mg, As needed rOPINIRole (REQUIP) 1 mg, oral, Daily rOPINIRole (REQUIP) 2 mg, oral, Nightly sertraline (ZOLOFT) 50 mg, oral, Daily traZODone (Desyrel) 50 mg tablet take 3 tablets by mouth at bedtime Previous Medication Trials (Please write medication names and reason for discontinuation.) Review of Systems Review of Systems Respiratory: Negative for chest tightness and shortness of breath. Cardiovascular: Negative for chest pain. Neurological: Negative for dizziness, weakness, light-headedness, numbness and headaches. Psychiatric/Behavioral: Negative for decreased concentration, dysphoric mood, sleep disturbance and suicidal ideas. The patient is not nervous/anxious and is not hyperactive. Objective Rating Scales Today's JOLEEN-7 score was: JOLEEN-7 Total Score: 15 Today's PHQ-9 score was: Mental Status Exam Level of Alertness: alert Appearance: appears stated age Eye Contact: normal Build/Stature: normal weight Posture: good posture Muscle Tone: normal Gait and Ambulation: coordinated Station: able to stand both with the eyes open and feet close together Attitude Toward Examiner: cooperative Behavior: normal Speech: clear Language: expressive normal and receptive normal Mood: anxious and fearful Affect: congruent Thought Process: linear Thought Content: intact Orientation: oriented to person, oriented to place, and oriented to time Attention and Concentration: able to appropriately shift attention and able to focus Memory: intact Estimated Intelligence: average Insight: intact Judgment: social judgment intact and test judgment intact Reliability: reliable Vitals and Weight There were no vitals taken for this visit. 64.9kg Most Recent Labwork No results found for: WBC, HEMATOCRIT, HEMOGLOBIN, PLATELETS No results found for: SODIUM, POTASSIUM, CHLORIDE, CO2, CALCIUM, BUN, CREATININE, GLUCOSE, TRANSCHART GFR - AA, TRANSCHART GFR - NON AA, MAGNESIUM, PHOSPHORUS No results found for: PROTEIN, ALBUMIN, AST, ALT No results found for: HEMOGLOBIN A1C, CHOLESTEROL TOTAL, LDL CHOLESTEROL, HDL, CHOL/HDL, TRIGLYCERIDES No results found for: TSH, FREE T4, FOLATE, VITAMIN B 12 Assessment and Plan Assessment OCD Major Depressive Disorder, Mild Plan Re-start Zoloft 50mg qAM for management of obsessions. We discussed the risks, benefits, side effects, and alternatives to Zoloft including but not limited to, the risk of fatigue, worsening mood, irritability, suicidal thoughts, weight gain, dry mouth, sexual side effects, serotonin syndrome, changes in blood pressure, teratogenicity, and medication (more content not included)... [facility]02-03-2023 Miscellaneous Notes* Telephone Encounter - MALAIKA Rosales - 12/09/2022 1:31 PM EST Called patient and advised of Dr Masters's message. Patient said Dr Masters was going to contact [facility]. Patient asking if he was able to. * Telephone Encounter - Isra Masters DO - 12/09/2022 10:25 AM EST She has 20-21cm of colon left and based on the smart pill it to 17hrs to get out of that area whichwould be very delayed so yes it could cause the symptoms. * Telephone Encounter - Nelsy Pepe RN - 12/08/2022 4:54 PM EST SPECIALTY CARE COORDINATION FOLLOW-UP NOTE Provider Action/FYI Patient asking about findings from sigmoidoscopy on 12/05/22? Wants to know if she still has colon left? If Dr. Masters is contacting colorectal surgeon? If ted is left wants to know if that is what could be still making her symptomatic? Patient identified by name and date of . YES Message from patient Summary: As noted Concerns: Procedure results Banquet Coordinator plan for next outreach: Will follow up Signature Nelsy Pepe RN December 08, 2022 documented in this encounterLakehealth [facility]01-30-2023 Nurse Note* Lisa Contreras RN - 12/05/2022 1:05 PM EST [facility] ENDOSCOPY PRE PROCEDURE CALL Akiko. I'm calling from [facility] endoscopy to provide you with the information for your surgery/procedure tomorrow. Spoke to: Patient CONFIRM Procedure Planned with patient:Esophagogastroduodenoscopy(EGD) with or without biopies based on clinical findings, removal of polyps or lesions Are you familiar with where [facility] is located?yes Address [facility] Patient instructed to enter through the main hospital entrance off [address] at the [address] [place] [address] through the revolving doors and check in at the main desk with your mobile lounge driver or operator's license and insurance card.yes When anesthesia or sedation is being given: Patient instructed you must have an adult mobile lounge driver or operator because you will not be able to work or drive for the rest of the day after your test.yes Can you please confirm the name and relationship of your mobile lounge driver or operator. tbd What is the best number for your mobile lounge driver or operator to be reached at tomorrow for updates? tbd Your mobile lounge driver or operator is allowed to wait here with you or they may drop you off and come back to pick you up. So you are prepared and comfortable on the day of your procedure, I want to make you aware of several safety measures we've put in place. You will be asked to sanitize your hands and will be provided with a mask to wear the entire time you are in our building. You may choose to bring your own masks from home. Additionally, the furniture has been rearranged to promote social distancing Patient instructed: Do not eat anything the morning of the procedure, including gum, hard candy andmints.yes Patient instructed not bring any valuables, jewelry, or cox and wear comfortable clothing. Do not wear makeup, lotion, or finger english. yes Patient instructed: Please bring a list of medications including over the counter, vitamin, and herbals. If you are on inhalers, please do them in the morning before your test and bring them with you.yes Blood pressure, seizure, or thyroid medications may be taken with a couple sips of water ONLY 4 hours prior to arrival time. Is the patient on blood thinners?no If so,verify if pt contacted the prescribing doctor to see how long they may hold blood thinners prior to procedure. Are you diabetic?no If so, advise pt to contact prescribing doctor to verify if any modifications are needed for insulin and/or pills Reminder:diabetic medication instructions should be given by the patient's ordering physician. If blood sugar drops, they can have CLEAR liquids to bring it up until 3 hours prior to arrival time. Hospitalizations: No Procedure and/or bowel prep instructions given to patient and questions answered: Yes, and they verbalized their understanding of instructions given Any barriers to Patient learning (confusion? Project Product Manager needed?): Patient/Patient Energy Project Manager responded appropriately on phone. If patient needs to reschedule please call: [phone] [facility] phone number: [phone] Type of instruction given: Verbal by telephone contact. documented in this encounterLakehealth [facility]point [facility] Center01-27-2023 Nurse Note* Isra Harman RN - 12/02/2022 10:48 AM EST [facility] ENDOSCOPY PRE PROCEDURE CALL Akiko. I'm calling from [facility] endoscopy to provide you with the information for your surgery/procedure tomorrow. Spoke to: Patient CONFIRM Procedure Planned with patient: Are you familiar with where [facility] is located?yes Address [facility] Patient instructed to enter through the main hospital entrance off [address] at the [address] [place] [address] [place] [address] through the revolving doors and check in at the main desk with your mobile lounge driver or operator's license and insurance card.yes When anesthesia or sedation is being given: Patient instructed you must have an adult mobile lounge driver or operator because you will not be able to work or drive for the rest of the day after your test.yes Can you please confirm the name and relationship of your mobile lounge driver or operator. Rich What is the best number for your mobile lounge driver or operator to be reached at tomorrow for updates? [phone] Your mobile lounge driver or operator is allowed to wait here with you or they may drop you off and come back to pick you up. So you are prepared and comfortable on the day of your procedure, I want to make you aware of several safety measures we've put in place. You will be asked to sanitize your hands and will be provided with a mask to wear the entire time you are in our building. You may choose to bring your own masks from home. Additionally, the furniture has been rearranged to promote social distancing Colonoscopy: Have you had solid foods today (if call done 1 day out)?no (or instruct this must be done on Monday.) Did you pick remover your bowel prep pt calling office for type of prep needed as she has had total colectomy. Remind patient the day prior to the test they should be on a clear liquid diet all day. Clear liquids consist of liquids that you can see through (no reds or purple). Stay well hydrated all day. Do not drink just the bowel prep to clean you out. Drink all of the prep to ensure your test can be completed and polyps are not missed. Remind pt to drink at least 1 cup of clear liquids every hour even after finishing the bowel prep (up until midnight or up until 4 hours before procedure)to keep yourself hydrated and to flush the prep through your system. If pt has eaten solid foods-contact endoscopist and verify if they wish to proceed. Patient instructed: Do not eat anything the morning of the procedure, including gum, hard candy andmints.yes Patient instructed not bring any valuables, jewelry, or cox and wear comfortable clothing. Do not wear makeup, lotion, or finger english. yes Patient instructed: Please bring a list of medications including over the counter, vitamin, and herbals. If you are on inhalers, please do them in the morning before your test and bring them with you.yes Blood pressure, seizure, or thyroid medications may be taken with a couple sips of water ONLY 4 hours prior to arrival time. Is the patient on blood thinners?no If so,verify if pt contacted the prescribing doctor to see how long they may hold blood thinners prior to procedure. Are you diabetic?no If so, advise pt to contact prescribing doctor to verify if any modifications are needed for insulin and/or pills Reminder:diabetic medication instructions should be given by the patient's ordering physician. If blood sugar drops, they can have CLEAR liquids to bring it up until 3 hours prior to arrival time. Hospitalizations: No Procedure and/or bowel prep instructions given to patient and questions answered: Yes, and they verbalized their understanding of instructions given Any barriers to Patient learning (confusion? Project Product Manager needed?): Patient/Patient Energy Project Manager responded appropriately on phone. If patient needs to reschedule please call: [phone] [facility] phone number: [phone] Type of instruction given: Verbal by telephone contact. documented in this encounterLakehealth Tripoint Medical Center01-26-2023 NotePROCEDURE: XR FOOT RT MIN 3 VIEWS, XR ANKLE RT MIN 3 VIEWS HISTORY: Pain in right foot and ankle COMPARISON: XR foot right 11/14/2022, XR ankle right 10/17/2022 FINDINGS: BONES:Prior osteotomy and repair of head of first metatarsal. Osteotomy and wedge placement within medial cuneiform and anterior calcaneus. Posterior calcaneal osteotomy and repositioning. SOFT TISSUES:No visible soft tissue swelling. EFFUSION:None visible. OTHER: Negative. IMPRESSION: 1. Stable surgical changes without evidence of hardware failure or change in alignment. Electronically authenticated by: ZAIDA ACOSTA Date: 2022-12-01 11:42[facility]01-26-2023 NotePROCEDURE: XR FOOT RT MIN 3 VIEWS, XR ANKLE RT MIN 3 VIEWS HISTORY: Pain in right foot and ankle COMPARISON: XR foot right 11/14/2022, XR ankle right 10/17/2022 FINDINGS: BONES:Prior osteotomy and repair of head of first metatarsal. Osteotomy and wedge placement within medial cuneiform and anterior calcaneus. Posterior calcaneal osteotomy and repositioning. SOFT TISSUES:No visible soft tissue swelling. EFFUSION:None visible. OTHER: Negative. IMPRESSION: 1. Stable surgical changes without evidence of hardware failure or change in alignment. Electronically authenticated by: ZAIDA ACOSTA Date: 2022-12-01 11:42[facility]01-25-2023 NoteHNO ID: [id number] Author: Isra Masters, DO Service: ? Author Type: Physician Type: Progress Notes Filed: 11/30/2022 1:54 PM Note Text: FOLLOW UP VIRTUAL VISIT CHIEF COMPLAINT No chief complaint on file. Ms. Leal is here today for follow-up of: nausea constipation. HPI I saw this patient in follow up for the gi issues by virtual visit. SMART PILL showed a normal GETS and small bowel however there was a 17hr time that appears to be colon but patient has had a total colectomy. She has had ongoing nausea and pain if she eats solid food. Previously with the ostomy she was tolerating the diet without issues. Current Outpatient Medications Medication Sig Dispense Refill Cholecalciferol, Vitamin D3, (VITAMIN D) 25 mcg (1,000 unit) cap Take 1,000 Units by mouth once daily. cyanocobalamin (VITAMIN B-12) 1,000 mcg tab Take 1,000 mcg by mouth once daily. cyclobenzaprine (FLEXERIL) 10 mg tablet Take by mouth three times daily. galcanezumab-gnlm (EMGALITY SYRINGE) 120 mg/mL syringe Inject subcutaneously once every month. Do not shake. Dexlansoprazole 60 mg CpDM take 1 capsule by mouth before breakfast 30 capsule 5 CPAP/BIPAP/OTHER Type .CPAPSettings into a note to see current settings/supplies/DME information. 1 Each 0 Simethicone (GAS RELIEF, SIMETHICONE,) 125 mg chewable tablet Take 2 tablets by mouth three times daily as needed. 180 tablet 5 traZODone (DESYREL) 50 mg tablet Take 150 mg by mouth daily at bedtime. atorvastatin (LIPITOR) 20 mg tablet Take 20 mg by mouth once daily. rOPINIRole (REQUIP) 2 mg tablet Take 2 mg by mouth twice daily. Takes 2 mg in the AM and 4 mg PM uipxhaekwtp-yutfmhxyf-wcbkdpjq (TRELEGY ELLIPTA) 100-62.5-25 mcg Inhale 1 Puff as instructed once daily. No current facility-administered medications for this visit. ALLERGIES Allergen Reactions Risperidone Intolerance Breast discharge Social History Tobacco Use Smoking status: Never Smokeless tobacco: Never Substance Use Topics Alcohol use: Never Drug use: Never Medical History: No changes since last visit. REVIEW OF SYSTEMS: GENERAL: weight stable, no fevers. CARDIOVASCULAR: No chest pain, no edema RESPIRATORY: No dyspnea : neg ESL PROFESSOR: neg The remainder of the review of systems are negative. Reviewed with patient during visit today. PHYSICAL EXAMINATION: There were no vitals taken for this visit. Estimated weight: GENERAL APPEARANCE: Well developed and well nourished. SKIN: Skin color, texture, turgor normal. No rashes or lesions. EYES: Conjunctiva normal without icterus. OROPHARYNX: lips, mucosa, and tongue normal, teeth and gums normal NECK: Supple, full range of motion and no JVD LUNGS: Normal respirations on RA HEART:Normal HR. NEURO: Alert and oriented in no acute distress. ABDOMEN: abdomen flat with no distention and no rigidity. EXTREMITIES:Extremities normal, No deformities, No skin discoloration, No edema . Assessment Encounter Diagnosis ICD-10-CM 1. Chronic idiopathic constipation K59.04 SIGMOIDOSCOPY 2. Nausea R11.0 Isra MastersDO 11/30/2022[place]01-25-2023 History of Present illness Narrative* Isra MastersDO - 11/30/2022 1:35 PM EST FOLLOW UP VIRTUAL VISIT CHIEF COMPLAINT No chief complaint on file. Ms. Leal is here today for follow-up of: nausea constipation. HPI I saw this patient in follow up for the gi issues by virtual visit. SMART PILL showed a normal GETSand small bowel however there was a 17hr time that appears to be colon but patient has had a total colectomy. She has had ongoing nausea and pain if she eats solid food. Previously with the ostomy she was tolerating the diet without issues. Current Outpatient Medications Medication Sig Dispense Refill Cholecalciferol, Vitamin D3, (VITAMIN D) 25 mcg (1,000 unit) cap Take 1,000 Units by mouth once daily. cyanocobalamin (VITAMIN B-12) 1,000 mcg tab Take 1,000 mcg by mouth once daily. cyclobenzaprine (FLEXERIL) 10 mg tablet Take by mouth three times daily. galcanezumab-gnlm (EMGALITY SYRINGE) 120 mg/mL syringe Inject subcutaneously once every month. Do not shake. Dexlansoprazole 60 mg CpDM take 1 capsule by mouth before breakfast 30 capsule 5 CPAP/BIPAP/OTHER Type .CPAPSettings into a note to see current settings/supplies/DME information. 1Each 0 Simethicone (GAS RELIEF, SIMETHICONE,) 125 mg chewable tablet Take 2 tablets by mouth three times daily as needed. 180 tablet 5 traZODone (DESYREL) 50 mg tablet Take 150 mg by mouth daily at bedtime. atorvastatin (LIPITOR) 20 mg tablet Take 20 mg by mouth once daily. rOPINIRole (REQUIP) 2 mg tablet Take 2 mg by mouth twice daily. Takes 2 mg in the AM and 4 mg PM nfxhzttenaw-ehdtztcal-pmbppbxn (TRELEGY ELLIPTA) 100-62.5-25 mcg Inhale 1 Puff as instructed once daily. No current facility-administered medications for this visit. ALLERGIES Allergen Reactions Risperidone Intolerance Breast discharge Social History Tobacco Use Smoking status: Never Smokeless tobacco: Never Substance Use Topics Alcohol use: Never Drug use: Never Medical History: No changes since last visit. REVIEW OF SYSTEMS: GENERAL: weight stable, no fevers. CARDIOVASCULAR: No chest pain, no edema RESPIRATORY: No dyspnea : neg ESL PROFESSOR: neg The remainder of the review of systems are negative. Reviewed with patient during visit today. PHYSICAL EXAMINATION: There were no vitals taken for this visit. Estimated weight: GENERAL APPEARANCE: Well developed and well nourished. SKIN: Skin color, texture, turgor normal. No rashes or lesions. EYES: Conjunctiva normal without icterus. OROPHARYNX: lips, mucosa, and tongue normal, teeth and gums normal NECK: Supple, full range of motion and no JVD LUNGS: Normal respirations on RA HEART:Normal HR. NEURO: Alert and oriented in no acute distress. ABDOMEN: abdomen flat with no distention and no rigidity. EXTREMITIES:Extremities normal, No deformities, No skin discoloration, No edema . Assessment Encounter Diagnosis ICD-10-CM 1. Chronic idiopathic constipation K59.04 SIGMOIDOSCOPY 2. Nausea R11.0 Isra Masters DO 11/30/2022 [facility] in [facility]23 NotePsychiatry Psychotherapy Progress Note Time In: 8:30 AM Time Out: 9:13 AM Present At Visit: Patient Clinician Location: Clinician via telehealth Patient Location: Via telehealth in [place] Telehealth Information Telehealth Mode: Webex (video + audio) The patient was notified that using 3rd green party telecommunication application is not HIPAA compliant and may carry some privacy risks: Yes Video Consent Date of Telehealth Visit: 11/30/22 The patient was notified that using 3rd green party telecommunication application (e.g. Engezni) is not HIPAA compliant and may carry some privacy risks: Yes This visit was conducted [id number] with the use of audio and video technology using Atempo between patient and the provider for a virtual visit. Verbal consent to provide and bill this service was obtained on: 11/30/22 No signature was obtained due to the COVID-19 pandemic. SUBJECTIVE CC: Chief Complaint Patient presents with Therapy HPI: Mary Leal is a 52 y.o. female presenting to the [facility] Psychiatry Clinic on 11/30/22 for management of depression and anxiety. Since the last visit, the patient's condition has improved Session activities included: symptom monitoring, discussed pt's physical health, pt processed thoughts and feelings regarding communication with partner. Pt stated there has been an easing of tension in the household because her partner learned his pay is not being cut at his job. Pt processed her thoughts and feelings regarding telling her partner she supports him no matter what. Pt stated she does not want her partner to withhold telling her things out of fear of her reaction. Pt stated she is doing [facility]. She has an appointment next week for further testing. Pt set intention/focus for the week of calm to help ground her during times of stress and anxiety. Current Presenting Symptoms/Problems: Mood: Anhedonia, Irritability, and Mood lability Anxiety: Generalized worry Trauma/Abuse: No abuse reported Other Symptoms/Disorders: N/A Onset/Timing: several years. Context: lack of support and of father (06/30/22) Severity: Moderate Sleep: Insomnia and Multiple awakenings Lifestyle Habits: Attempts healthy eating, No regular exercise, and Typical day lacks structure Medication Compliance: Greater than 90% GOAL: manage symptoms of anxiety (Anxiety) Disciplines: Interdisciplinary Expected end: 10/10/23 OBJ: reduction of anxiety symptoms evidenced by 25% decrease in scores on JOLEEN-7 over 12 months (Anxiety) Disciplines: Interdisciplinary Expected end: 10/10/23 Therapeutic Interventions Provided: Assessed Mood, Assessed Thinking, Cognitive Behavioral Therapy, Discussed Medications, Socratic Questioning, and Supportive Psychotherapy Response to Intervention: Agreeable OBJECTIVE Rating Scales Today's JOLEEN-7 score was: N/A Today's PHQ-9 score was: N/A Other self-report scales: N/A Mental Status Exam Level of Alertness: alert Appearance: appears stated age, clean, and dressed appropriately Eye Contact: normal Build/Stature: N/A Gait and Ambulation: N/A Attitude Toward Examiner: cooperative and pleasant Behavior: normal Speech: clear and coherent reciprocal Language: expressive normal and receptive normal Mood: euthymic Affect: appropriate and broad Thought Process: coherent and goal-directed Thought Content: intact Orientation: oriented to person, oriented to place, and oriented to time Attention and Concentration: able to appropriately shift attention and able to focus Memory: able to comment on events and conversation content appropriate Estimated Intelligence: average Insight: intact Judgement: social judgment intact and test judgment intact Reliability: reliable Vitals and Weight There were no vitals taken for this visit. No weight available Current Medications Current Outpatient Medications: albuterol 90 mcg/actuation inhaler, inhale 2 puffs by mouth INTO THE LUNGS every 4 hours if needed, Disp: , Rfl: alendronate (Fosamax) 70 mg/75 mL solution, Take 70 mg by mouth every 7 (seven) days. Take in the morning with a full glass of water, on an empty stomach, and do not take anything else by mouth or lie down for the next 30 min., Disp: , Rfl: atorvastatin (Lipitor) 20 mg tablet, Take 1 tablet by mouth in the morning., Disp: , Rfl: cholecalciferol (Vitamin D-3) 50 MCG (2000 UT) tablet, Take by mouth in the morning., Disp: , Rfl: cyanocobalamin (Vitamin B-12) 1,000 mcg tablet, Take 1,000 mcg by mouth in the morning., Disp: , Rfl: dexlansoprazole (Dexilant) [address] capsule, take 1 capsule by mouth before breakfast, Disp: , Rfl: enoxaparin (Lovenox) 30 mg/0.3 mL syringe, Inject under the skin every 12 (twelve) hours. Patient Unsure of Dosage, Disp: , Rfl: galcanezumab (Emgality) 120 mg/mL auto-injector, Inject 120 mg under the skin every 28 (twenty-eight) d (more content not included)...[facility]01-19-2023 Miscellaneous Notes* Telephone Encounter - Uziel Serrano RN - 11/24/2022 3:20 PM EST This concern was addressed in the phone encounter on 11/24/22. Patient was called back and informed [facility] will complete Prior Authorization for her sleep study. documented in this encounterLake[facility]01-19-2023 Miscellaneous Notes* Telephone Encounter - Uziel Serrano RN - 11/24/2022 3:18 PM EST Contacted [employer] department to confirm they have patient on their list for prior authorization for PAP Titration. They do have patient on list and will be completing her prior authorization. Called and spoke with patient and informed her of the process of our [employer] department. Patient statedshe understood. All questions answered. * Telephone Encounter - Barber Marie - 11/24/2022 2:46 PM EST SLEEP PHONE Name of caller: Mary Leal Relationship to patient : Self In-state or [id number] patient: In-State Was permission obtained from patient? Yes Patient identified by Name and Date of . ( Mary Leal, 1970). Yes Reason for Call : Patient stated she spoke to her insurance and they told her that the provider need to call Deuce to see if a PA is needed for the PAP Titration. Number to return call [phone] Okay to leave a message ? Yes Last office visit 10/14/[address] Tuttle virtual Next office visit None documented in this encounterLake[facility]01-19-2023 NoteHNO ID: [id number] Author: Isra Masters DO Service: ? Author Type: Physician Type: Progress Notes Filed: 11/24/2022 8:30 AM Note Text: SmartPill Test Report - [id number] Test start date: 11/17/2022 10:03 AM Structural Steel Engineer: josephine Interpretation date: 11/24/2022 Ordering physician: Isra Masters DO Referring physician: Patient Information Name: Mary LealReno. ID: [id number] date: 1970 Height ft. in.: 5' 4 Gender: Female Weight lbs.: 160 Insurance Information Insurance carrier: Insurance group: Symptoms/Reason for Referral None Additional Notes Additional Notes Prior GI Procedures, Allergies, Medications GI procedures: None Implanted devices: None Allergies: None Medications: None Study Comments Capsule ingestion notes: None Post-test notes: None Test Statistics Transit Times (h:min) GET: 3:20 ? 4 h suggests delayed gastric emptying. SBTT: 3:30 Normal: 2.5 - 6 h CTT: 17:41 > 59 h indicates delayed colonic transit. SLBTT: 21:11 > 64 h indicates delayed combined bowel transit. WGTT: 24:32 Normal: < 73 h Gastric pH High: 6.3 Low: 0.8 Range annotations (h:min) Start: 2:58, End: 3:28 30 min. prior Contractions/min: 2.27 Mean amplitude: 14.5 Motility index: 55.52 Start: 3:28, End: 3:58 30 min. post Contractions/min: 1.4 Mean amplitude: 16.92 Motility index: 35.44 Point annotations (h:min) Interpretations and Recommendations Interpretations Observed pH baseline below 4 in the stomach., No evidence of additional meal 6 hours into test., Observed a pH change of 3 or more units., Did not observe a gradually increasing pH profile, Observed normal gastric emptying. Clinical Management Plans Normal gastric transit Normal small bowel transit [id number] transit in the distal bowel consistent delay post anastomosis Signature _Dr. Masters Date _11/24/[address] [facility]01-19-2023 History of Present illness Narrative* Isra Masters DO - 11/24/2022 8:29 AM EST Images from the original note were not included. [employer] Test Report - [id number] Test start date: 11/17/2022 10:03 AM Structural Steel Engineer: josephine Interpretation date: 11/24/2022 Ordering physician: Isra Masters DO Referring physician: Patient Information Name: Mary Leal ID: [id number] date: 1970 Height ft. in.: 5' 4 Gender: Female Weight lbs.: 160 Insurance Information Insurance carrier: Insurance group: Symptoms/Reason for Referral None Additional Notes Additional Notes Prior GI Procedures, Allergies, Medications GI procedures: None Implanted devices: None Allergies: None Medications: None Study Comments Capsule ingestion notes: None Post-test notes: None Test Statistics Transit Times (h:min) GET: 3:20 ? 4 h suggests delayed gastric emptying. SBTT: 3:30 Normal: 2.5 - 6 h CTT: 17:41 > 59 h indicates delayed colonic transit. SLBTT: 21:11 > 64 h indicates delayed combined bowel transit. WGTT: 24:32 Normal: < 73 h Gastric pH High: 6.3 Low: 0.8 Range annotations (h:min) Start: 2:58, End: 3:28 30 min. prior Contractions/min: 2.27 Mean amplitude: 14.5 Motility index: 55.52 Start: 3:28, End: 3:58 30 min. post Contractions/min: 1.4 Mean amplitude: 16.92 Motility index: 35.44 Point annotations (h:min) Interpretations and Recommendations Interpretations Observed pH baseline below 4 in the stomach., No evidence of additional meal 6 hours into test., Observed a pH change of 3 or more units., Did not observe a gradually increasing pH profile, Observed normal gastric emptying. Clinical Management Plans Normal gastric transit Normal small bowel transit [id number] transit in the distal bowel consistent delay post anastomosis Signature _Dr. Masters Date _11/24/2022 documented in this encounterLake[facility]01-18-2023 NotePsychiatry Psychotherapy Progress Note Time In: 8:30 AM Time Out: 9:23 AM Present At Visit: Patient Clinician Location: Clinician in office Patient Location: Via telehealth in [place] Telehealth Information Telehealth Mode: Webex (video + audio) The patient was notified that using 3rd green party telecommunication application is not HIPAA compliant and may carry some privacy risks: Yes Video Consent Date of Telehealth Visit: 11/23/22 The patient was notified that using 3rd green party telecommunication application (e.g. Engezni) is not HIPAA compliant and may carry some privacy risks: Yes This visit was conducted [id number] with the use of audio and video technology using Qompiumex between patient and the provider for a virtual visit. Verbal consent to provide and bill this service was obtained on: 11/23/22 No signature was obtained due to the COVID-19 pandemic. SUBJECTIVE CC: Chief Complaint Patient presents with Therapy Telehealth Audio/video Visit WebEx HPI: Mary Leal is a 52 y.o. female presenting to the [facility] Psychiatry Clinic on 11/23/22 for management of depression and anxiety. Since the last visit, the patient's condition has remained stable Session activities included: discussed pt's health and relationship issues. Pt stated she continues to have GI issues and is scheduled for additional testing at the beginning of December. Pt stated she has lost 30 lbs in one month due to difficulty eating. Pt also reported having a family discussion last week regarding issues with communication among family members. Pt stated she has discovered when she is not feeling well and not able to take care of the family, things go down hill. Specifically the patient stated her boyfriend's approach to communicating with her children is not helpful. Current Presenting Symptoms/Problems: Mood: Anhedonia, Irritability, and Mood lability Anxiety: Generalized worry Trauma/Abuse: No abuse reported Other Symptoms/Disorders: N/A Onset/Timing: several years. Context: lack of support and of father (06/30/22) Severity: Moderate Sleep: Insomnia and Multiple awakenings Lifestyle Habits: Attempts healthy eating, No regular exercise, and Typical day lacks structure Medication Compliance: Greater than 90% GOAL: manage symptoms of anxiety (Anxiety) Disciplines: Interdisciplinary Expected end: 10/10/23 OBJ: reduction of anxiety symptoms evidenced by 25% decrease in scores on JOLEEN-7 over 12 months (Anxiety) Disciplines: Interdisciplinary Expected end: 10/10/23 Therapeutic Interventions Provided: Assessed Mood, Assessed Thinking, Cognitive Behavioral Therapy, Discussed Medications, Socratic Questioning, and Supportive Psychotherapy Response to Intervention: Agreeable OBJECTIVE Rating Scales Today's JOLEEN-7 score was: N/A Today's PHQ-9 score was: N/A Other self-report scales: N/A Mental Status Exam Level of Alertness: alert Appearance: appears stated age, clean, and dressed appropriately Eye Contact: normal Build/Stature: N/A Gait and Ambulation: N/A Attitude Toward Examiner: cooperative and pleasant Behavior: normal Speech: clear and coherent reciprocal Language: expressive normal and receptive normal Mood: euthymic Affect: appropriate and broad Thought Process: coherent and goal-directed Thought Content: intact Orientation: oriented to person, oriented to place, and oriented to time Attention and Concentration: able to appropriately shift attention and able to focus Memory: able to comment on events and conversation content appropriate Estimated Intelligence: average Insight: intact Judgement: social judgment intact and test judgment intact Reliability: reliable Vitals and Weight There were no vitals taken for this visit. 63.5kg Current Medications Current Outpatient Medications: albuterol 90 mcg/actuation inhaler, inhale 2 puffs by mouth INTO THE LUNGS every 4 hours if needed, Disp: , Rfl: alendronate (Fosamax) 70 mg/75 mL solution, Take 70 mg by mouth every 7 (seven) days. Take in the morning with a full glass of water, on an empty stomach, and do not take anything else by mouth or lie down for the next 30 min., Disp: , Rfl: atorvastatin (Lipitor) 20 mg tablet, Take 1 tablet by mouth in the morning., Disp: , Rfl: cholecalciferol (Vitamin D-3) 50 MCG (2000 UT) tablet, Take by mouth in the morning., Disp: , Rfl: cyanocobalamin (Vitamin B-12) 1,000 mcg tablet, Take 1,000 mcg by mouth in the morning., Disp: , Rfl: dexlansoprazole (Dexilant) [address] capsule, take 1 capsule by mouth before breakfast, Disp: , Rfl: enoxaparin (Lovenox) 30 mg/0.3 mL syringe, Inject under the skin every 12 (twelve) hours. Patient Unsure of Dosage, Disp: , Rfl: galcanezumab (Emgality) 120 mg/mL auto-injector, Inject 120 mg under the skin every 28 (twenty-eight) days., Disp: , Rfl: l (more content not included)...[facility]01-17-2023 NoteHNO ID: [id number] Author: Lilli Goldberg Service: ? Author Type: ? Type: Progress Notes Filed: 11/22/2022 3:34 PM Note Text: Patient calling to verify that monitor was received at A30. Monitor was sent via Fed Ex on 11/19/22. Patient is requesting a confirmation.[facility]01-17-2023 Miscellaneous Notes* Telephone Encounter - Lilli Goldberg - 11/22/2022 3:37 PM EST Patient calling to verify that Smart Pill monitor was received at A30. Monitor was sent via [employer] on 11/19/22. Patient is requesting a confirmation. documented in this encounterLakehealth [facility]01-16-2023 Miscellaneous Notes* Telephone Encounter - Uziel Serrano RN - 11/21/2022 9:11 AM EST Immusoft message sent to patient. Prior Sleep study forwarded to MD to review, Order pended for PAP-titration for provider to review and sign if necessary. documented in this encounterLakehealth [facility]point [facility] Center01-16-2023 History and physical note * Yodit Back PA-C - 11/21/2022 8:00 AM EST PREANESTHESIA CONSULT CLINIC TELEHEALTH VISIT Patient has been identified by name and date of : Yes This is a virtual visit using Immusoft video visit. It require patient-provider interaction for the medical decision making as documented below. Reason for contact: PACC visit Accompanied by: Self Scheduled Surgery: EGD w/ pyloric dilation and Montiel placement Subjective CHIEF COMPLAINT: Patient presents with: Anesthesia Consult HPI: This is a 52 year old female who presents with gastroparesis and lower GI dysmotility. She is s/p total abdominal colectomy with ileorectal anastamosis. Has persistent N/V, GERD, and upper abdominal pain. She is gradually losing weight and unable to tolerate most solid foods. Recommended for above surgery and elected to proceed. 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 Htn (Hypertension) Gastroparesis Esophageal Dysphagia Bipolar 1 Disorder (Hcc) Obesity (Bmi 30.0-34.9) Status Post Arthroscopy of Right Shoulder Sleep disturbance- chronic Genitourinary Syndrome of Menopause Asthma Gerd (Gastroesophageal Reflux Disease) History of 2018 Novel Coronavirus Disease (Covid-19) Pelvic Floor Dysfunction Lack of Coordination Follow-Up Examination After Colorectal Surgery Chronic Idiopathic Constipation Chronic Constipation Chuckie (Obstructive Sleep Apnea) PAST MEDICAL HISTORY Diagnosis Date Asthma as a child Bipolar 1 disorder (HCC) Gastroparesis History of laparoscopic-assisted vaginal hysterectomy 10/2015 for endometriosis HTN (hypertension) PTSD (post-traumatic stress disorder) PAST SURGICAL HISTORY Procedure Laterality Date COLONOSCOPY EGD 2019 with dilation FOOT SURGERY HX Right 10/2022 reconstruction PAST SURGICAL HISTORY OF left foot reconstruction PAST SURGICAL HISTORY OF cervical neck surgery PAST SURGICAL HISTORY OF Left ACL PAST SURGICAL HISTORY OF anal fissure PAST SURGICAL HISTORY OF Left CTR PAST SURGICAL HISTORY OF appendectomy PAST SURGICAL HISTORY OF bilat bunionectomy PAST SURGICAL HISTORY OF 12/24/2021 laparoscopic proctopexy with diverting loop ileostomy, anterior & posterior colporrhaphy and sling 12/24/2021 TONSILLECTOMY HX 02/11/2021 and septoplasty TONSILLECTOMY HX 07/2021 revision VAGINAL HYSTERECTOMY 2014 LAVH 10/2015 for endometriosis, has remaining both FAMILY HISTORY Problem Relation Age of Onset Hypertension Mother Dementia Mother Hypertension Father other (atrial fibrillation) Father Anesthesia Problems No Family History Social History Tobacco Use Smoking status: Never Smokeless tobacco: Never Substance Use Topics Alcohol use: Never Drug use: Never ALLERGIES Allergen Reactions Risperidone Intolerance Breast discharge MEDICATIONS: Current Outpatient Medications Medication Sig Dexlansoprazole 60 mg CpDM take 1 capsule by mouth before breakfast CPAP/BIPAP/OTHER Type .CPAPSettings into a note to see current settings/supplies/DME information. Simethicone (GAS RELIEF, SIMETHICONE,) 125 mg chewable tablet Take 2 tablets by mouth three times daily as needed. traZODone (DESYREL) 50 mg tablet Take 150 mg by mouth daily at bedtime. atorvastatin (LIPITOR) 20 mg tablet Take 20 mg by mouth once daily. rOPINIRole (REQUIP) 2 mg tablet Take 2 mg by mouth twice daily. Takes 2 mg in the AM and 4 mg PM fkbqodaddnr-mqrvbsrsr-vxfgfgde (TRELEGY ELLIPTA) 100-62.5-25 mcg Inhale 1 Puff as instructed once daily. No current facility-administered medications for this visit. COVID VACCINATION STATUS: Fully vaccinated REVIEW OF SYSTEMS: Pain Assessment: General: No weight loss, malaise or fevers. Neuro: No history of TIA's, stroke, WELL SITE DRILLING ENGINEER tumor, impaired sensorium, hemiplegia, paraplegia or quadraplegia. No neurological symptoms or problems. Respiratory: Negative for Current cough, Daily bronchodilator use for previous 3 months, Home O2, Pneumonia within 6 weeks (date), URI < 2 weeks + Asthma - uses inhaler a few times per week + CHUCKIE - working on settings and fit and unsure of appropriate settings so has not used CPAP yet Cardiovascular: No history of HTN requiring medication, no history of angina, CHF, [place], cardiac surgery or stents. Denies rest pain, gangrene or revascularization/amputation for PVD. No history of cardiovascular symptoms or problems. + HLD GI: See HPI : No history of dysuria, frequency or incontinence,, stones or chronic kidney disease ESL PROFESSOR: Negative for abnormal vaginal bleeding, abnormal vaginal discharge. : Denies, No LMP recorded. Patient has had a hysterectomy. Endocrine: No history of diabetes. Has not taken steroids within the past 30 days. No history of endocrinological symptoms or problems. Hematology: No history of bleeding or clotting disorder. Pt is not taking anti- coagulation or platelet medications. No history of hematological symptoms or problems. Oncology: No history of CA metastasis, chemo within 30 days, or radiotherapy within 90 days. Has not lost 10% of body wt in 6 months. No history of oncological symptoms or problems. Psych: Bipolar disorder Musculoskeletal: Negative for joint pain or swelling, back pain or muscle pain. Skin: Negative for lesions, rash and itching. Objective PHYSICAL EXAM: Ht 5' 4 (1.63m) Wt 143 lb (64.9kg) BMI 24.53 kg/(m^2). VIDEO EXAM: (if completed, performed via video enabled technology) GENERAL: alert and appropriate, in no distress, well-hydrated, well nourished, and happy, smiling, interactive SKIN: no rash noted HEAD: normocephalic, no abnormality or lesion noted OROPHARYNX: moist mucus membranes NECK: full ROM, no cervical LNs noted RESPIRATORY: breathing non-labored CHEST: equal chest rise with normal respiratory effort HEART: no cyanosis. Patient palpated pulse and counted aloud, RRR about 68 bpm ABDOMEN: Diffusely tender EXTREMITIES: no edema reported NEUROLOGIC: no obvious deficit Diagnostic tests reviewed for today's visit: Lab Value Units Date High Low HB No results within date range. HCT No results within date range. WBC No results within date range. PLT No results within date range. NA No results within date range. K No results within date range. GLUC No results within date range. BUN No results within date range. CREAT No results within date range. PTSEC No results within date range. INR No results within date range. APTT No results within date range. ALT No results within date range. AST No results within date range. TBILI No results within date range. TSH No results within date range. Lab Value Units Date High Low HCGQT No results within date range. UHCG No results within date range. HCG, BODY* No results within date range. Lab Value Units Date High Low ABORHD No results within date range. ABSCREEN No results within date range. Hemoglobin A1C (%) Date Value 06/10/2021 5.9 All in Epic Impression/Recommendations ASSESSMENT: HTN (hypertension) Assessment: hx of - resolved w/ weight loss and no longer on medication Asthma Assessment: uses Trelegy several times per week Gastroparesis Assessment: recommended for above surgery CHUCKIE (obstructive sleep apnea) Assessment: is not currently using CPAP - could not tolerate settings and needs a titration assessment METS: Climb a flight of stairs or walk up a hill (5.50 METs) Patient denies any chest pain or undue shortness of breath with the above physical activity. ASA Class: 3 ANESTHESIA FINDINGS: Intubation History: No history of difficult intubation Significant Anesthesia Considerations: None Airway Exam: General: Normal appearance Mallampati Score is CLASS II ULBT: Class II - Lower incisors can bite the upper lip below the shaheen line Neck: Normal appearance and function, Distance from hyoid to mentum during neck extension is at least 3 finger breaths Mouth: Normal tongue size and Mouth opening greater than 2 finger breaths Dentition: missing upper and lower right molar otherwise Intact Airway History: No abnormal airway history STOP BANG Score: CHUCKIE does not use CPAP/BiPAP currently - needs settings adjusted PLAN: This patient is optimally prepared for surgery. CONSULTS: Patient does not require consults for optimization at this time. The Following Tests/Procedures Have Been Initiated: Labs not indicated per PACC protocol, EKG not indicated per PACC protocol Planned Anesthetic: Per anesthesia choice Instructions Given to Patient: Patient given verbal instructions and voices comprehension and compliance. Copy sent electronically via My Chart, email, or mobile device. This is a virtual visit. It required patient-provider interaction for the medical decision making as documented above. SIGNATURE: Yodit Back PA-C PATIENT NAME: Mary Leal DATE: November 21, 2022 TIME: 8:07 AM PAGER/CONTACT #: documented in this encounterLake[facility] NoteDepartment of Psychiatry Outpatient Progress Note Time In: 3 PM Time Out: 3:30 PM Present At Visit: Patient Clinician Location: Clinician in office Patient Location: In office Subjective CC: Chief Complaint Patient presents with Telehealth Audio/video Visit [email or web address] HPI: Mary Leal is a 52 y.o. female presenting to the [facility] on 11/04/2022 for management of anxiety. Since last visit, she was trialed on Clondine 0.1mg nightly for management of sleep onset insomnia but reports that this medication caused worsening of her sleep and she discontinued it after trialing for 7 days over 2 weeks. She continues to report chronic, 4 to 6 hours a day ruminating about the of her loved ones. She reports that the anxiety is ego dystonic and that she cannot be reassured or calm down; she reports that she believes her children to be in danger unless she hears confirmation of their voice on the phone. She otherwise denied decreased mood, anhedonia, appetite changes, and weight changes. She did not report feeling helpless, hopeless, or worthless. Iron Level - resulted normal. GI appointment on 12/07/2022 to evaluate cause of lack of appetite. Denies any drug use. Previous medication trials: Prozac - jaw clenching Zoloft - hungrier Lexapro - reported ineffective, tried for months, unclear dosage Citalopram - reported ineffective Clonidine - causes nightly awakenings every 2 hours Seroquel - ineffective Ativan - ineffective (too sedating) OARRS: Reviewed, no concerns noted Current Medications Current Outpatient Medications Medication Instructions albuterol 90 mcg/actuation inhaler inhale 2 puffs by mouth INTO THE LUNGS every 4 hours if needed alendronate (FOSAMAX) 70 mg, oral, Every 7 days, Take in the morning with a full glass of water, on an empty stomach, and do not take anything else by mouth or lie down for the next 30 min. atorvastatin (Lipitor) 20 mg tablet 1 tablet, oral, Daily cholecalciferol (Vitamin D-3) 50 MCG (1999 UT) tablet oral, Daily cloNIDine (CATAPRES) 0.1 mg, oral, Nightly cyanocobalamin (VITAMIN B-12) 1,000 mcg, oral, Daily RT dexlansoprazole (Dexilant) [address] capsule take 1 capsule by mouth before breakfast enoxaparin (Lovenox) 30 mg/0.3 mL syringe subcutaneous, Every 12 hours, Patient Unsure of Dosage galcanezumab (EMGALITY) 120 mg, subcutaneous, Every 28 days Nurtec ODT 75 mg, As needed rOPINIRole (Requip) 2 mg tablet 1 tablet, oral, Daily rOPINIRole (Requip) 4 mg tablet 1 tablet, oral, Nightly traZODone (Desyrel) 50 mg tablet take 3 tablets by mouth at bedtime Trintellix 20 mg tablet Take 1 tablet by mouth in the morning Previous Medication Trials (Please write medication names and reason for discontinuation.) Review of Systems Review of Systems Respiratory: Negative for chest tightness and shortness of breath. Cardiovascular: Negative for chest pain. Neurological: Negative for dizziness, weakness, light-headedness, numbness and headaches. Psychiatric/Behavioral: Positive for decreased concentration and dysphoric mood. Negative for sleep disturbance and suicidal ideas. The patient is not nervous/anxious and is not hyperactive. Objective Rating Scales Today's JOLEEN-7 score was: JOLEEN-7 Total Score: 16 Today's PHQ-9 score was: Mental Status Exam Level of Alertness: alert Appearance: appears stated age Eye Contact: normal Build/Stature: normal weight Posture: good posture Muscle Tone: normal Gait and Ambulation: coordinated Station: able to stand both with the eyes open and feet close together Attitude Toward Examiner: cooperative Behavior: normal Speech: clear Language: expressive normal and receptive normal Mood: anxious and fearful Affect: congruent Thought Process: linear Thought Content: intact Orientation: oriented to person, oriented to place, and oriented to time Attention and Concentration: able to appropriately shift attention and able to focus Memory: intact Estimated Intelligence: average Insight: intact Judgment: social judgment intact and test judgment intact Reliability: reliable Vitals and Weight There were no vitals taken for this visit. 63.5kg Most Recent Labwork No results found for: WBC, HEMATOCRIT, HEMOGLOBIN, PLATELETS No results found for: SODIUM, POTASSIUM, CHLORIDE, CO2, CALCIUM, BUN, CREATININE, GLUCOSE, TRANSCHART GFR - AA, TRANSCHART GFR - NON AA, MAGNESIUM, PHOSPHORUS No results found for: PROTEIN, ALBUMIN, AST, ALT No results found for: HEMOGLOBIN A1C, CHOLESTEROL TOTAL, LDL CHOLESTEROL, HDL, CHOL/HDL, TRIGLYCERIDES No results found for: TSH, FREE T4, FOLATE, VITAMIN B 12 Assessment and Plan Assessment OCD ADHD Insomnia Plan 1.Restart Vyvanse 30 mg for management of ADHD; she reports that this was a historic medication for her and was discontinued by her previous provider prior to coming to [facility]. Primarily, she (more content not included)...[facility]01-12-2023 NoteHNO ID: [id number] Author: Berta Ann RN Service: ? Author Type: Registered Nurse Type: Progress Notes Filed: 11/17/2022 7:06 PM Note Text: Procedure pended for 12-07-22. Pre-op instructions reviewed with pt. Pt aware of need for PACC. Post op appt scheduled. Direct number provided for future reference. No other questions at this time. Berta Ann BSN, RN Specialty Care CoordinatorMer[facility]01-12-2023 NoteHNO ID: [id number] Author: Winston Hannah DO Service: ? Author Type: Physician Type: Progress Notes Filed: 11/17/2022 7:06 PM Note Text: [facility] [place] Gastroparesis/Dysmotility Consultation SERVICE DATE: 11/17/2022 SERVICE TIME: 2:16 PM PRIMARY CARE PHYSICIAN: DO Isra Mauricio [address] [place] [address] My final recommendations will be communicated back to the requesting physician by way of shared Medical record or letter to requesting physician via US mail. 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 Despite improvements in constipation, obstipation as well as bloating she continues to struggle with daily severe medically refractory gastroesophageal reflux as well as nausea, vomiting, and upper abdominal pains. She is gradually losing weight and unable to tolerate most solid foods. It is quite peculiar that her gastric emptying time on 2020 smart pill was normal less than 4 hours, and the possibility of underlying functional dyspepsia. Overall she will require further work-up and evaluation to properly target and tailor her further treatments. PLAN I discussed surgical therapy for gastroparesis in detail. Mary Leal is candidate for upper endoscopy with pyloric dilation and Montiel placement. During the procedure we will evaluate her for gastritis and H. pylori as well -Barium Esophagram -Complete the previously ordered smart pill (currently ingested). -Follow-up after completion of endoscopy and Motniel testing as well as esophagram Pending on the status of her stomach Future considerations may centered around pyloromyotomy versus further reflux investigations Risks of the procedure including bleeding (including major bleeding requiring transfusion), perforation, infection/abscess, ulceration (need for adherence to acid suppressive therapy), exacerbation of symptoms, symptom recurrence, anesthesia related complications, cardiopulmonary events, thromboembolic events, aspiration/pneumonia, dental gum injury, failure to identify/treat a condition, need for additional procedures/surgeries, as well as other rare complications including were presented. Alternatives of Pyloroplasty, pyloromyotomy, Botox, and continued medical/dietary management were reviewed. Patient elects to proceed and full written consent was obtained. NAME: Mary Leal CLINIC NO: [id number] DATE OF SERVICE: November 17, 2022 This is an initial consultation for Mary Leal who was referred to me by Dr. Isra Masters for evaluation of medical refractory gastroparesis. My final recommendation will be communicated via shared electronic medical record. CHIEF COMPLAINT Idiopathic Gastroparesis HISTORY OF PRESENT ILLNESS Mary Leal is a 52 year old female who comes in today for surgical evaluation for management of gastroparesis. The patient has been evaluated thoroughly including an EGD, and gastric emptying study. History is notable for bipolar, depression, endometriosis, restless leg syndrome, ADHD, PTSD, asthma, HTN, appendectomy, anal fissure, and total hysterectomy GI issues began around 2019. Still cannot eat solid foods. Pain and nausea are the primary drivers. She vomits most things that she eats. Currently only to eat jello and purees 3 main symptoms are nausea, pain, and epigastric burning. Since TAC OANH, only thing that improved was constipation and some bloating. Duration of symptoms (months): [id number] Weight changes in last 3 months: Steady 170lbs GERD: Uncontrollable belching. Severe heartburn and regurgitation. Currently on Dexilant with decent response but significant breakthrough. Bowel Movements: 5-6 BM per day, semi-formed. 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 4 h suggests delayed gastric emptying. SBTT: 4:43 Normal: 2.5 - 6 h CTT: 94:45 > 59 h indicates delayed colonic transit. SLBTT: 99:29 > 64 h indicates delayed combined bowel transit. WGTT: 102:54 Normal: < 73 h Gastric pH High: 7.2 Low: 0.9 Range annotations (h:min) Start: 2:59, End: 3:29 30 min. prior Contractions/min: 5.4 Mean amplitude: 15.46 Motility index: 125.61 Start: 3:29, End: 3:59 30 min. post Contractions/min: 5.55 Mean amplitude: 16.56 Motility index: 1 (more content not included)...[facility] 11-17-2022 Miscellaneous Notes* Addendum Note - Yoni Tuttle MD - 11/17/2022 3:16 PM ESTAddended by: YONI TUTTLE MD on: 11/17/2022 03:16 PM Modules accepted: Orders * Telephone Encounter - Yoni Tuttle MD - 11/17/2022 3:11 PM EST 09/22/22: PSG from [facility]: Total (RDI) AHI by 3% desat 27.1, REM AHI 32.5 AHI by 4% desat 5.3 O2 Min 86%, O2 mean 95%. Notable sleep related hypoventilation Max TCO2 65 7.3% of TST with TCO2 50 -55 mmHg 41.3% of TST with TCO2 55 - 100 mmHg Hypnogram illustrates TCO2 rising from ~40 during wake to max 60's overnight. - PAP titration ordered Must have TCO2 Low threshold for transition to bilevel PAP, rhona for hypoventilation * Telephone Encounter - Yoni Tuttle MD - 11/17/2022 3:10 PM EST Ty - I'll order PAP titration and MCM pt re her OSH PSG results. * Telephone Encounter - Barber Marie - 11/02/2022 12:33 PM EST Received from [facility] Report via fax. 8 pages indexed to chart. documented in this encounterLake[facility]01-12-2023 NoteHNO ID: [id number] Author: Annmarie Gillespie RN Service: ? Author Type: Registered Nurse Type: Progress Notes Filed: 11/17/2022 10:26 AM Note Text: Referring MD: Isra Masters DO Dx: gastroparesis, constipation Date of SmartPill Procedure: 11/17/2022 SmartPill ingested without difficulty at 10:10am. Discharge instructions completed and given to patient. Return of Equipment: Fed Ex Brittanie Gillespie RN Important Patient Information and Instructions Before the Test: 5 days before the test stop taking any medications that reduce the acid in your stomach. 5 days before the test stop taking all laxatives and motility drugs. Avoid alcohol. The Day of the Test: You may have sips of water during the 8 hours before your appointment time. Do not eat or drink anything else. Stop tube feeding 8 hours before the test. Do not smoke tobacco for 8 hours before the test. The Smartpill test will include a small meal that will be provided to you. Please let us know if you have any food allergies. If you are diabetic, check with your doctor about adjusting your insulin dose. For the Duration of the Test: No food for 6 hours after starting the test. You may have sips of water during the first 6 hours. Six (6) hours after you swallow the capsule, you may resume your normal diet, tube feeds, and tobacco use. Diabetic patients should monitor glucose levels and follow personal treatment plan. Do not drink alcohol until the test is complete. Do not take any laxatives or motility drugs or antidiarrhea medications until the test is complete. You may resume taking all medications for GERD and acid reflux the day after you swallow the SmartPill. Do not start taking any new medications until the test is complete. You will be wearing a Data Rental Manager around your neck like a necklace during the test. You must keep this near you at all times. The Data Rental Manager has an EVENT button. You will be asked to press the button and make entries in a diary during the test. Avoid vigorous exercise and sit-ups and abdominal crunches until after the Smartpill is complete. During the test, wait 2-3 minutes before flushing the toilet after each bowel movement. You must not have an MRI test while the Smartpill capsule is inside your body. Return the Data Rental Manager to the [facility] after your test is completed. Brittanie Gillespie [facility]NMer[facility]. [facility]01-12-2023 History of Present illness Narrative* Annmarie Gillespie RN - 11/17/2022 10:24 AM EST Referring MD: Isra Masters DO Dx: gastroparesis, constipation Date of SmartPill Procedure: 11/17/2022 SmartPill ingested without difficulty at 10:10am. Discharge instructions completed and given to patient. Return of Equipment: Fed Ex Brittanie Gillespie RN Important Patient Information and Instructions Before the Test: 5 days before the test stop taking any medications that reduce the acid in your stomach. 5 days before the test stop taking all laxatives and motility drugs. Avoid alcohol. The Day of the Test: You may have sips of water during the 8 hours before your appointment time. Do not eat or drink anything else. Stop tube feeding 8 hours before the test. Do not smoke tobacco for 8 hours before the test. The Smartpill test will include a small meal that will be provided to you. Please let us know if you have any food allergies. If you are diabetic, check with your doctor about adjusting your insulin dose. For the Duration of the Test: No food for 6 hours after starting the test. You may have sips of water during the first 6 hours. Six (6) hours after you swallow the capsule, you may resume your normal diet, tube feeds, and tobacco use. Diabetic patients should monitor glucose levels and follow personal treatment plan. Do not drink alcohol until the test is complete. Do not take any laxatives or motility drugs or antidiarrhea medications until the test is complete. You may resume taking all medications for GERD and acid reflux the day after you swallow the SmartPill. Do not start taking any new medications until the test is complete. You will be wearing a Data Rental Manager around your neck like a necklace during the test. You must keepthis near you at all times. The Data Rental Manager has an EVENT button. You will be asked to press the button and make entries in a diary during the test. Avoid vigorous exercise and sit-ups and abdominal crunches until after the Smartpill is complete. During the test, wait 2-3 minutes before flushing the toilet after each bowel movement. You must not have an MRI test while the Smartpill capsule is inside your body. Return the Data Rental Manager to the [facility] after your test is completed. Brittanie Gillespie RN documented in this encounterLakehealth [facility]point [facility] Center01-11-2023 NotePsychiatry Psychotherapy Progress Note Time In: 8:30 AM Time Out: 9:23 AM Present At Visit: Patient Clinician Location: Clinician in office Patient Location: Via telehealth in [place] Telehealth Information Telehealth Mode: Webex (video + audio) The patient was notified that using 3rd green party telecommunication application is not HIPAA compliant and may carry some privacy risks: Yes Video Consent Date of Telehealth Visit: 11/16/22 The patient was notified that using 3rd green party telecommunication application (e.g. Enge[employer]) is not HIPAA compliant and may carry some privacy risks: Yes This visit was conducted [id number] with the use of audio and video technology using Atempo between patient and the provider for a virtual visit. Verbal consent to provide and bill this service was obtained on: 11/16/22 No signature was obtained due to the COVID-19 pandemic. SUBJECTIVE CC: Chief Complaint Patient presents with Therapy Telehealth Audio/video Visit WebEx HPI: Mary Leal is a 52 y.o. female presenting to the [facility] Psychiatry Clinic on 11/16/22 for management of anxiety and depression. Since the last visit, the patient's condition has remained stable Session activities included: symptom monitoring and mindfulness exercise. Pt stated she has experienced significant health issues over the past month. Pt had right foot surgery mid-October and has also been experiencing stomach pain the last 3 weeks. Pt could not recall any exacerbating factors for her stomach pain. She reported she goes to [place] tomorrow for testing. Pt appeared visibly fatigued and stated she has not been sleeping well and has not been able to eat solid foods for several days. Explained and practiced mindfulness exercise (breathing and body scan) to promote awareness and relaxation. Current Presenting Symptoms/Problems: Mood: Anhedonia, Irritability, and Mood lability Anxiety: Generalized worry Trauma/Abuse: No abuse reported Other Symptoms/Disorders: N/A Onset/Timing: several years. Context: lack of support and of father (06/30/22) Severity: Moderate Sleep: Insomnia and Multiple awakenings Lifestyle Habits: Attempts healthy eating, No regular exercise, and Typical day lacks structure Medication Compliance: Greater than 90% Individualized Service Plan (ISP): in progress Progress Toward ISP Goals/Objectives: in progress Therapeutic Interventions Provided: Assessed Mood, Assessed Thinking, Cognitive Behavioral Therapy, Discussed Medications, Socratic Questioning, and Supportive Psychotherapy Response to Intervention: Agreeable OBJECTIVE Rating Scales Today's JOLEEN-7 score was: N/A Today's PHQ-9 score was: N/A Other self-report scales: N/A Mental Status Exam Level of Alertness: alert Appearance: appears stated age, clean, dressed appropriately, and well-groomed Eye Contact: normal Build/Stature: normal weight Posture: relaxed Muscle Tone: N/A Gait and Ambulation: N/A Station: N/A Attitude Toward Examiner: cooperative and pleasant Behavior: normal Speech: clear and coherent reciprocal Language: expressive normal and receptive normal Mood: euthymic and tired Affect: appropriate and congruent Thought Process: coherent, goal-directed, and linear Thought Content: intact Orientation: oriented to person, oriented to place, and oriented to time Attention and Concentration: able to appropriately shift attention, able to focus, and able to sustain attention Memory: able to comment on events, conversation content appropriate, and intact Abstraction: Proverbs: abstract Abstraction: Object Similarities: abstract Estimated Intelligence: average Insight: intact Judgment: social judgment intact and test judgment intact Reliability: reliable Vitals and Weight There were no vitals taken for this visit. No weight available Current Medications Current Outpatient Medications: albuterol 90 mcg/actuation inhaler, inhale 2 puffs by mouth INTO THE LUNGS every 4 hours if needed, Disp: , Rfl: alendronate (Fosamax) 70 mg/75 mL solution, Take 70 mg by mouth every 7 (seven) days. Take in the morning with a full glass of water, on an empty stomach, and do not take anything else by mouth or lie down for the next 30 min., Disp: , Rfl: atorvastatin (Lipitor) 20 mg tablet, Take 1 tablet by mouth in the morning., Disp: , Rfl: cholecalciferol (Vitamin D-3) 50 MCG (2000 UT) tablet, Take by mouth in the morning., Disp: , Rfl: cloNIDine (Catapres) 0.1 mg tablet, Take 1 tablet (0.1 mg) by mouth at bedtime., Disp: 30 tablet, Rfl: 0 cyanocobalamin (Vitamin B-12) 1,000 mcg tablet, Take 1,000 mcg by mouth in the morning., Disp: , Rfl: dexlansoprazole (Dexilant) [address] capsule, take 1 capsule by mouth before breakfast, Disp: , Rfl: enoxaparin (Lovenox) 30 mg/0.3 mL syringe, Inject under the skin every 12 (tw (more content not included)...[facility]01-09-2023 NotePROCEDURE: XR FOOT RT MIN 3 VIEWS HISTORY: Pain in right foot COMPARISON: XR foot right 11/10/2022 FINDINGS: BONES:Posterior calcaneal osteotomy with realignment and attachment. Anterior calcaneal osteotomy with wedge placement. Medial cuneiform osteotomy with wedge placement. Osteotomy and single screw repair of the head of the first metatarsal. No evidence of hardware fracture or loosening. No bone fracture or dislocation. Plantar arch is maintained. SOFT TISSUES:No visible soft tissue swelling. Skin joshua have been removed. EFFUSION:None visible. OTHER: Negative. IMPRESSION: 1. Stable surgical changes without evidence of hardware failure or change in alignment. Electronically authenticated by: ZAIDA ACOSTA Date: 2022-11-14 10:39[facility]01-05-2023 NotePROCEDURE: XR FOOT RT MIN 3 VIEWS COMPARISON: 10/17/2022 HISTORY: Pain in right foot FINDINGS: BONES:Stable triple arthrodesis. Posterior calcaneal osteotomy transfixed with 2 cannulated screws. Osteotomies wedge spacer is medial cuneiform and anterior calcaneus. Single screw through the head of the first metatarsal. No acute fracture, dislocation or mechanical failure. SOFT TISSUES:Bimalleolar soft tissue swelling with surgical skin joshua EFFUSION:None visible. OTHER: Negative. IMPRESSION: Stable triple arthrodesis with bimalleolar soft tissue swelling Electronically authenticated by: NICKI DACOSTA Date: 2022-11-10 11:44[facility]01-05-2023 Miscellaneous Notes* Telephone Encounter - Annmarie Gillespie RN - 11/10/2022 9:07 AM EST Telephoned patient with SmartPill procedure appointment reminder/instructions. Brittanie Gillespie RN documented in this encounterLake[facility]01-04-2023 Miscellaneous Notes* Telephone Encounter - Lilli Goldberg - 11/09/2022 1:20 PM EST Scheduled 11/17 for Smart Pill at 10:30am and Dr. Hannah at 2:00 pm * Telephone Encounter - Isra Masters DO - 11/09/2022 12:19 PM EST Yes that would be fine thanks * Telephone Encounter - Lilli Goldberg - 11/09/2022 12:06 PM EST Spoke with patient. Smart Pill issue has been resolved, I am currently working with patient, Pre Access and Smart Pill department to expedite scheduling for 1st available. Please advise if appointment with general surgery would be appropriate to discuss surgical intervention. * Telephone Encounter - Karthikeyan Morrissey RN - 11/09/2022 11:41 AM EST Patient calling. She saw Dr. Masters on 10/11. He had ordered smart pill and she has not had luck withscheduling it. She is frustrated with smart pill department as no one returns her call. She is in constant pain, nauseated and she can barely eat. She would like to schedule an appt with Dr. Masters to discuss other tests she can do besides the smart pill. Appt placed on hold on 01/03 at 1030 - clerical to make it legit. 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 No prior auth is needed,coverage is active, patient can proceed with Smart Pill. Placed a new referral. Call Ref # [id number] * Telephone Encounter - Lilli Goldberg - 11/02/2022 3:51 PM EST Spoke with patient. Smart Pill is a covered benefit. Sent email to Smart Pill rn immunology and [facility] to assist in scheduling Smart Pill in November. * Telephone Encounter - MALAIKA Rosales - 11/01/2022 5:01 PM EST Images from the original note were not included. Brook Baconers Pss You 11 minutes ago (4:49 PM) LS Good afternoon, This patient cannot be schedule because her referral expires at the end of the month. Smart Pill capsule's are scheduling into December. Whomever the provider that wants the patient to have this procedure might want to put in another referral and order. Per [facility] they are asking for any extension for referral until after the beginning of the year. If the patient wants to pre-pay for procedure, she can call Earlene Martin at [phone]. documented in this encounterLakehealth [facility]point [facility] Center12-30-2022 [id number] Mary Leal 1970 F Date Provider Department Center 11/04/2022 ANNETTE BRYAN [facility] Gerardo Heal No family history on file Level of Service:19918 [place] OFFICE/OUTPATIENT ESTABLISHED HIGH MDM 40-54 MIN Reason for Visit and Comments: Med Management [[id number]][facility]12-30-2022 Note Department of Psychiatry Outpatient Progress Note Time In: 2 PM Time Out: 3 PM Present At Visit: Patient and Spouse Clinician Location: Clinician in office Patient Location: In office Subjective CC: Chief Complaint Patient presents with Med Management HPI: Mary Leal is a 52 y.o. female presenting to the [facility] Psychiatry Clinic on 11/04/2022 for management of anxiety. Since last visit, patient was trialed on Seroquel for sleep, but this medicine was ineffective and so she was put on a short trial of Ativan, which both the patient and spouse report has been helpful, but too sedating and otherwise not worth using given the side effect burden. During interview, patient reports chronic, 4 to 6 hours a day ruminating about the of her loved ones. She reports that the anxiety is ego dystonic and that she cannot be reassured or calm down; she reports that she believes her children to be in danger unless she hears confirmation of their voice on the phone. She otherwise denied decreased mood, anhedonia, appetite changes, and weight changes. She did not report feeling helpless, hopeless, or worthless. Reports difficulty with sleep onset insomnia but no difficulty with sleep maintenance insomnia. Denies any drug use. Previous medication trials: Prozac - jaw clenching Zoloft - hungrier Lexapro - reported ineffective, tried for months, unclear dosage Citalopram - reported ineffective OARRS: Reviewed, no concerns noted Current Medications Current Outpatient Medications Medication Instructions albuterol 90 mcg/actuation inhaler inhale 2 puffs by mouth INTO THE LUNGS every 4 hours if needed alendronate (FOSAMAX) 70 mg, oral, Every 7 days, Take in the morning with a full glass of water, on an empty stomach, and do not take anything else by mouth or lie down for the next 30 min. atorvastatin (Lipitor) 20 mg tablet 1 tablet, oral, Daily cholecalciferol (Vitamin D-3) 50 MCG (2000 UT) tablet oral, Daily cloNIDine (CATAPRES) 0.1 mg, oral, Nightly cyanocobalamin (VITAMIN B-12) 1,000 mcg, oral, Daily RT dexlansoprazole (Dexilant) [address] capsule take 1 capsule by mouth before breakfast enoxaparin (Lovenox) 30 mg/0.3 mL syringe subcutaneous, Every 12 hours, Patient Unsure of Dosage galcanezumab (EMGALITY) 120 mg, subcutaneous, Every 28 days Nurtec ODT 75 mg, As needed ramelteon (ROZEREM) 8 mg, oral, Nightly rOPINIRole (Requip) 2 mg tablet 1 tablet, oral, Daily rOPINIRole (Requip) 4 mg tablet 1 tablet, oral, Nightly traZODone (Desyrel) 50 mg tablet take 3 tablets by mouth at bedtime Trintellix 20 mg tablet Take 1 tablet by mouth in the morning Previous Medication Trials (Please write medication names and reason for discontinuation.) Review of Systems Review of Systems Objective Rating Scales Today's JOLEEN-7 score was: Today's PHQ-9 score was: Mental Status Exam Level of Alertness: alert Appearance: appears stated age Eye Contact: normal Build/Stature: normal weight Posture: good posture Muscle Tone: normal Gait and Ambulation: coordinated Station: able to stand both with the eyes open and feet close together Attitude Toward Examiner: cooperative Behavior: normal Speech: clear Language: expressive normal and receptive normal Mood: anxious and fearful Affect: congruent Thought Process: linear Thought Content: intact Orientation: oriented to person, oriented to place, and oriented to time Attention and Concentration: able to appropriately shift attention and able to focus Memory: intact Estimated Intelligence: average Insight: intact Judgment: social judgment intact and test judgment intact Reliability: reliable Vitals and Weight Visit Vitals BP 112/72 (BP Location: Left arm, Patient Position: Sitting, BP Cuff Size: Adult) Pulse 101 74.8kg Most Recent Labwork No results found for: WBC, HEMATOCRIT, HEMOGLOBIN, PLATELETS No results found for: SODIUM, POTASSIUM, CHLORIDE, CO2, CALCIUM, BUN, CREATININE, GLUCOSE, TRANSCHART GFR - AA, TRANSCHART GFR - NON AA, MAGNESIUM, PHOSPHORUS No results found for: PROTEIN, ALBUMIN, AST, ALT No results found for: HEMOGLOBIN A1C, CHOLESTEROL TOTAL, LDL CHOLESTEROL, HDL, CHOL/HDL, TRIGLYCERIDES No results found for: TSH, FREE T4, FOLATE, VITAMIN B 12 Assessment and Plan Assessment Stop Seroquel due to lack of efficacy. Stop Ativan due to side effect burden. Restart Vyvanse 30 mg for management of ADHD; she reports that this was a historic medication for her and was discontinued by her previous provider prior to coming to [facility]. Primarily, she struggles with task switching, rumination, and lack of emotional regulation at this time. We discussed the risks, benefits, side effects, and alternatives to Vyvanse including insomnia, irritability, increased blood pressure, and appetite suppression, and she voiced understanding and agreement. Start clonidine 0.1 mg at nighttime for sleep (more content not included)... [facility]12-19-2022 Miscellaneous Notes* Telephone Encounter - Ban Benton LPN - 10/24/2022 2:09 PM EST Thank you, let patient know, smart pill is being adressed and patient should receive a call once they have an answer. Ban Benton LPN * Telephone Encounter - Ban Benton LPN - 10/24/2022 1:12 PM EST Please advise Thank you Ban Benton LPN * Telephone Encounter - Nati Hernandez - 10/24/2022 9:52 AM EST Mary Leal is calling Isra Masters DO today with concern regarding her smart pill patient stated she has been calling and there has not been a response patient would like to know what would Dr. Masters like her to do so she can get scheduled with them please advise. Patient has been identified by name and birthdate. Person calling: self Call patient at: at home [phone] (home) [phone] (cell) Closing statement: Symptom Call: Thank you for calling [facility], your call is very important. A nurse will call in approximately 2-4 hours during business hours. If this is an emergency, please contact 911. Nati Hernandez documented in this encounterLakehealth [facility] Center12-13-2022 Miscellaneous Notes* Telephone Encounter - Brooklyn Valle LPN - 10/18/2022 2:43 PM EST Requested Prescriptions Pending Prescriptions Disp Refills Dexlansoprazole 60 mg CpDM [Pharmacy Med Name: DEXLANSOPRAZOLE DR 60 MG CAP] 30 capsule 5 Sig: take 1 capsule by mouth before breakfast Patient last seen 10/11/2022 documented in this encounterLakehealth [facility] Center12-12-2022 NotePROCEDURE: XR FOOT RT MIN 3 VIEWS, XR ANKLE RT MIN 3 VIEWS COMPARISON: 10/17/2022 HISTORY: Pain FINDINGS: BONES:Interval triple arthrodesis. Posterior calcaneal osteotomy transfixed with 2 cannulated lag screws. Anterior calcaneal osteotomy and wedged spacer placement. Transverse osteotomy of the medial cuneiforms with wedged spacer. Stable screw through the head of the first metatarsal SOFT TISSUES:Soft tissue swelling, air and surgical skin joshua EFFUSION:None visible. OTHER: Negative. IMPRESSION: Triple arthrodesis with postsurgical changes Electronically authenticated by: NICKI DACOSTA Date: 2022-10-17 18:06[facility]12-[facility]-20[facility] NotePROCEDURE: XR FOOT RT MIN 3 VIEWS, XR ANKLE RT MIN 3 VIEWS COMPARISON: 10/17/2022 HISTORY: Pain FINDINGS: BONES:Interval triple arthrodesis. Posterior calcaneal osteotomy transfixed with 2 cannulated lag screws. Anterior calcaneal osteotomy and wedged spacer placement. Transverse osteotomy of the medial cuneiforms with wedged spacer. Stable screw through the head of the first metatarsal SOFT TISSUES:Soft tissue swelling, air and surgical skin joshua EFFUSION:None visible. OTHER: Negative. IMPRESSION: Triple arthrodesis with postsurgical changes Electronically authenticated by: NICKI DACOSTA Date: 2022-10-17 18:06[facility]12-12-2022 Miscellaneous Notes* Telephone Encounter - Mick Doll - 10/17/2022 9:17 AM EST Faxed order, office notes, demographics, and sleep study to: DME name: [facility] fax: [phone] [facility] ph: ALSO SENT A REQUEST FOR PTS PSG FROM [employer] [facility] [place] documented in this encounterLakehealth [facility] Center12-09-2022 NoteHNO ID: [id number] Author: Yoni Tuttle MD Service: ? Author Type: Physician Type: Progress Notes Filed: 10/14/2022 5:04 PM Note Text: [facility] New Patient Evaluation Virtual PATIENT NAME: Mary Leal DATE OF SERVICE: October 14, 2022 CONSULTING PROVIDER: No referring provider defined for this encounter. REASON FOR CONSULT: sends the patient for an opinion about CHUCKIE. My findings and recommendations will be transmitted electronically via shared medical record to the consulting provider. HPI: Mary Leal is a 52 year old female with past medical history of HTN, Asthma, GERD, arthritis, bipolar, obesity (BMI 29) presenting with sleep concerns of CHUCKIE (reportedly AHI 27) recently diagnosed, insomnia, RLS. CHUCKIE: SDB symptoms of difficulty falling asleep, staying asleep, fatigue, decreased memory and concentration. 05/04/2020: PSG: Only 3.7 hours of sleep, no apneas, 14 hypopneas total AHI 3.8. O2 minimum 89%. 09/22/2022: PSG at [facility]: records not available at this time but per pt report: AHI 27/h INSOMNIA: Difficulty falling asleep and staying asleep. WASO is worse than Sleep onset insomnia Predisposing factors: Anxiety and depression Precipitating factors: none Perpetuating factors: CHUCKIE, menopause, father passed with depression and anxiety, RLS Tried: belsomra, trazodone, ambien, doxepin Ambien: ADR on parasomnia Tried CBTi - Dr. Linda at [facility] - 6 mo She reports having an urge to move the legs and arms - was always in arms from the start. The urge to move the legs is worse in the evening or nighttime than during the daytime. The urge to move the legs begins or worsens during periods of rest or inactivity (e.g. lying or sitting). The urge to move the legs is partially or totally relieved by movements such as walking or stretching, at least as long as the activity continues. The urge to move the legs occurs 7 nights per week and began 2 years ago. Around this time had rotator cuff surgery and colectomy and ileostomy. There is no history of iron deficiency or anemia. She has not been told that she has leg kicking during sleep. - Takes ropinirole 2mg in AM, 4 mg in pm Never iron checked No results found for: KUMAR, FE, TIBC, TRANSFERSAT ANXIETY: - trintellix 20 mg every day - Lorazepam 0.5 mg every day SLEEP-WAKE SCHEDULE Bedtime: 930-10 PM- falls asleep at 11am She does not have a hard time falling asleep. 60 min Wake time: 2 AM, without an alarm. After falling asleep: she wakes up 1 time(s) per night, because of the need to urinate. - Toss and turn 60 min and then usually goes downstairs and is done until awake On weekends, she maintains the same sleep schedule. Average total sleep time (in a 24 hour period): 4 -6 hours. SLEEP-RELATED DETAILS Breathing disturbances and other behaviors during sleep: None. GERD or aspiration: Yes Waking up with heart pounding or racing: Yes Anxiety or rumination: Yes She denies any history of parasomnias. Daytime sleepiness is not a problem. 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 She does have difficulty with memory or concentration. She denies falling asleep or dozing off when driving. She does not take naps. There has not been a recent change in weight. Last Wt 10/11/22 78 kg (172 lb) 07/26/22 77.6 kg (171 lb) 04/22/22 77.6 kg (171 lb) 04/01/22 83 kg (183 lb) 03/15/22 83 kg (183 lb) 03/14/22 83 kg (183 lb) 02/18/22 80.3 kg (177 lb) 02/08/22 83 kg (183 lb) 02/08/22 83 kg (183 lb) 01/04/22 78.5 kg (173 lb) Patient Questionnaires Sleep Scores Sleep Questions 10/07/2022 Reason for visit: Sleep apnea, Difficulty falling or staying asleep or poor sleep quality, Excessive daytime sleepiness Average hours slept in 24 hours: 6 Accidents or near accidents due to drowsy drivin [place] Sleepiness Scale 10/07/2022 Score 13 (present daytime sleepiness) PROMIS CAT Sleep Disturbance 10/07/2022 PROMIS Sleep Disturbance T-Score 76 (severe) Insomnia Severity Index 10/07/2022 Score 28 Restless Leg Syndrome 10/07/2022 Score 19 PHQ-9 10/07/2022 Score 18 PROMIS Global Health - (T-Scores - the mean of general population = 50. Five points is a clinically meaningful difference.) 12/14/2021 03/07/2022 10/07/2022 Physical T-Score 32.4 32.4 32.4 Mental T-Score 36.3 33.8 25.1 PAST TREATMENTS: None PRIOR SLEEP STUDIES: PSG per above OTHER RELEVANT LABS AND STUDIES: PAST MEDICAL HISTORY Diagnosis Date Asthma as a child Bipolar 1 disorder (HCC) Gastroparesis History of laparoscopic-assisted vaginal hysterectomy 10/2015 for endometriosis HTN (hypertension) PTSD (post-traumatic stress disorder) PAST SURGICAL HISTORY Procedure Laterality Date COLONOSCOPY EGD 2019 with dilation PAST SURGICAL HISTORY OF left foot reconstruction PAST SURGICAL HISTORY OF cervical neck surgery PAST (more content not included)...[facility] [id number] History of Present illness Narrative* Isra Masters, DO - 10/11/2022 10:28 AM EST FOLLOW UP VISIT CHIEF COMPLAINT Patient presents with: Establish Care: Follow up Ms. Leal is here today for follow-up of: abdominal pain. HPI I saw this 52y/o in f/u for her gi issues. She has excessive gas and belching. Despite Dexilant anytightening of the abdomen she gets reflux. Her weight is stable for the last 6 months. She now moves her bowels 3-4 times a day. Current Outpatient Medications Medication Sig Dispense Refill Dexlansoprazole 60 mg CpDM take 1 capsule by mouth before breakfast 30 capsule 5 traZODone (DESYREL) 50 mg tablet Take 150 mg by mouth daily at bedtime. atorvastatin (LIPITOR) 20 mg tablet Take 20 mg by mouth once daily. rOPINIRole (REQUIP) 2 mg tablet Take 2 mg by mouth twice daily. Takes 2 mg in the AM and 4 mg PM lactobacillus rhamnosus (CULTURELLE) 10 billion cell capsule Take 1 capsule by mouth once daily. 30capsule 0 tiZANidine (ZANAFLEX) 2 mg tablet Take 1 tablet by mouth every 8 hours as needed. 30 tablet 0 nystatin (MYCOSTATIN) cream Apply 1 application to affected area twice daily. 30 g 0 vortioxetine (TRINTELLIX) 10 mg tablet Take 10 mg by mouth once daily. clonazePAM (KLONOPIN) 1 mg tablet Take 0.5 mg by mouth twice daily. fluticasone (FLONASE) 50 mcg/actuation nasal spray Use 1 Morrison in each nostril once daily. carBAMazepine XR (TEGRETOL XR) 400 mg 12 hr tablet Take 400 mg by mouth q 12 HR. ARIPiprazole (ABILIFY) 30 mg tablet Take 30 mg by mouth once daily. albuterol HFA (PROVENTIL HFA, VENTOLIN HFA) 90 mcg/actuation inhaler inhale 2 puffs by mouth INTO THE LUNGS every 4 hours if needed pfmqupjxgzo-tezyvkosq-fgzfuuwq (TRELEGY ELLIPTA) 100-62.5-25 mcg Inhale 1 Puff as instructed once daily. (Patient not taking: Reported on 10/11/2022) atenolol (TENORMIN) 50 mg tablet Take 50 mg by mouth once daily. No current facility-administered medications for this visit. ALLERGIES Allergen Reactions Risperidone Intolerance Breast discharge Social History Tobacco Use Smoking status: Never Smokeless tobacco: Never Substance Use Topics Alcohol use: Never Drug use: Never Medical History: No changes since last visit. REVIEW OF SYSTEMS: GENERAL: weight stable, no fevers. CARDIOVASCULAR: No chest pain, no edema RESPIRATORY: No dyspnea : neg ESL PROFESSOR: neg The remainder of the review of systems are negative. Reviewed with patient during visit today. PHYSICAL EXAMINATION: BP 141/97 Pulse 89 Ht 5' 4 (1.63m) Wt 172 lb (78.0kg) BMI 29.51 kg/(m^2). GENERAL APPEARANCE: Well developed and well nourished. SKIN: Skin color, texture, turgor normal. No rashes or lesions. EYES: Conjunctiva normal without icterus. OROPHARYNX: lips, mucosa, and tongue normal, teeth and gums normal NECK: Supple, full range of motion, no lymphadenopathy, normal thyroid, no carotid bruits and no JVD LUNGS: Normal breath sounds, Clear to auscultation, No wheezes, No crackles. HEART:Normal PMI, Regular rate and rhythm, Normal heart sounds, S1 and S2 and No murmurs. NEURO: Alert and oriented in no acute distress. ABDOMEN: Normal bowel sounds, abdomen flat with no distention, Soft, non-tender, no hepatomegaly. no palpable masses, no abdominal bruits, no rebound and no rigidity. EXTREMITIES:Extremities normal, No deformities, No skin discoloration, No edema . Assessment Encounter Diagnosis ICD-10-CM 1. Gas bloat syndrome K92.89 Simethicone (GAS RELIEF, SIMETHICONE,) 125 mg chewable tablet 2. Chronic idiopathic constipation K59.04 3. Gastroparesis K31.84 CAPSULE ENDOSCOPY SMART We will relook at a smart pill to evaluate the small bowel motility as well as the gastric transit. Isra Masters DO 10/11/2022 documented in this encounterL[facility] Evaluation note* Encounter Date Diagnosis Assessment Notes Treatment Notes Treatment Clinical Notes Oct, Primary osteoarthritis, right shoulder (ICD-10 - M19.011) Oct, Primary osteoarthritis, left shoulder (ICD-10 - M19.012) Oct, Other Radiographs reviewed and discussed in detail with patient. X-Rays appear unremarkable. We discussed conservative treatment at this time. We will order formal physical therapy and inject cortisone into bilateral shoulders. Advised gentle motion and strengthening exercises. Patient voices understanding and is agreeable to treatment plan. We will follow up for possible MRI. A 1/1cc marcaine / kenalog cortisone injection was performed into the subacromial space under sterile technique. Patient tolerated the injection well with no adverse reaction. She appears to be strong. I would suspect she needs to resume rotator cuff strengthening exercises. If problems persist we will need an MRI to assess for rotator cuff healing or recurrent tear [employer] Other 12-01-2022 Evaluation note* Encounter Date Diagnosis Assessment Notes Treatment Notes Treatment Clinical Notes Oct, Shoulder pain (ICD-10 - M25.519) We discussed treatment options for the patient's persistent right shoulder pain. Given her increasing pain symptoms as well failed previous conservative measures, I would like her to be formally evaluated by Orthopedics. Oct, Generalized pain (ICD-10 - R52) Oct, Knee pain (ICD-10 - M25.569) We discussed treatment options for the patient's persistent knee pain. She has failed multiple conservative measures and would be a reasaonble candidate for bilateral knee joint injections which we will proceed with today in the office. Risks and benefits of procedure explained to patient; patient verbalizes understanding. Patient tolerated well. Oct, Cervical spondylosis without myelopathy (ICD-10 - M47.812) Patient is voicing minimal complaints of pain at this time. She attributes this to a recent left cervical facet radiofrequency ablation. We will continue to monitor her symptoms in this region. Anatomy of spine discussed in detail with patient in regards to patients condition. Overall, patient believes their pain is reasonably well controlled and she is in agreement with our treatment plan. Oct, Lumbosacral spondylosis without myelopathy (ICD-10 - M47.817) The patient notes some benefit from bilateral lumbar facet radiofrequency ablation. We will continue to monitor her symptoms in this region. Anatomy of spine discussed in detail with patient in regard to patients condition. Overall, patient believes their pain is reasonably well controlled, and she is in agreement with our treatment plan. Oct, Other chronic pain (ICD-10 - G89.29) Oct, Other Above note writ ten by Wanda Yang LPN, Machine Repairer. Edited and approved by Dr. Annette Harirs MD. [employer] Other 11-17-2022 Evaluation note* Encounter Date Diagnosis Assessment Notes Treatment Notes Treatment Clinical Notes Sep, Shoulder pain (ICD-10 - M25.519) Sep, Generalized pain (ICD-10 - R52) Patient is voicing complaints of generalized joint pain, most notable in her bilateral knees and right shoulder. Updated xrays of her bilateral shoulders and knees were ordered and obtained today in office. Patient has been instructed results will be discussed at the patients follow up unless there are acute or urgent findings. Additionally, given her complaints of widespread pain, I will order basic labwork to assess for any rheumatological conditions. We will follow up with the patient to discuss possible further treatment once we obtain the results. In the meantime, patient has continued need for Oxycodone/ Acetaminophen 5-325 up to twice daily as needed for severe breakthrough pain. Patient uses this very sparingly. An OARRS report was processed and reviewed and shows no violations, as well as an opioid risk assessment being completed without concerns. She denies any significant opioid related side effects and appears to be compliant with this medication. 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 She understands the associated risks with this medication and agrees that it provides reasonable benefit in regards to her pain control and level of function. This medication was refilled today. Updated opioid contract was signed. Patient also provided a saliva sample for toxassure screening. Sep, Knee pain (ICD-10 - M25.569) Sep, Cervical spondylosis without myelopathy (ICD-10 - M47.812) Patient is voicing minimal complaints of pain at this time. She attributes this to a recent left cervical facet radiofrequency ablation. We will continue to monitor her symptoms in this region. Anatomy of spine discussed in detail with patient in regards to patients condition. Overall, patient believes their pain is reasonably well controlled and she is in agreement with our treatment plan. Sep, Lumbosacral spondylosis without myelopathy (ICD-10 - M47.817) The patient notes some benefit from bilateral lumbar facet radiofrequency ablation. We will continue to monitor her symptoms in this region. Anatomy of spine discussed in detail with patient in regard to patients condition. Overall, patient believes their pain is reasonably well controlled, and she is in agreement with our treatment plan. Sep, Other chronic pain (ICD-10 - G89.29) Sep, Other Above note writ ten by Lupillo Amezquita MA, Machine Repairer. Edited and approved by Dr. Annette Harris MD. [employer] Other 11-17-2022 Evaluation note* Encounter Date Diagnosis Assessment Notes Treatment Notes Treatment Clinical Notes Sep, Lumbosacral spondylosis without myelopathy (ICD-10 - M47.817) [employer] Other 11-09-2022 Evaluation note* Encounter Date Diagnosis Assessment Notes Treatment Notes Treatment Clinical Notes Sep, Cervical spondylosis without myelopathy (ICD-10 - M47.812) Patient is voicing minimal complaints of pain at this time. She attributes this to a recent left cervical facet radiofrequency ablation. We will continue to monitor her symptoms in this region. Anatomy of spine discussed in detail with patient in regards to patients condition. Overall, patient believes their pain is reasonably well controlled and she is in agreement with our treatment plan. Sep, Muscle pain, cervical (ICD-10 - M54.2) We discussed treatment options for the patient's persistent cervical muscle pain. Patient shows notable muscle tenderness upon exam. Given location of pain and exam findings, patient left cervical/paraspinal muscle trigger point injections, which we will proceed with today in the office. Risks and benefits of procedure explained to patient; patient verbalizes understanding. Patient tolerated this well. Sep, Lumbosacral spondylosis without myelopathy (ICD-10 - M47.817) The patient notes some benefit from bilateral lumbar facet radiofrequency ablation. We will continue to monitor her symptoms in this region. Anatomy of spine discussed in detail with patient in regard to patients condition. Overall, patient believes their pain is reasonably well controlled, and she is in agreement with our treatment plan. Sep, Other chronic pain (ICD-10 - G89.29) Sep, Other Above note writ ten by Wanda Yang LPN, Machine Repairer. Edited and approved by Dr. Anntete Harris MD. [employer] Other 09-21-2022 NotePROCEDURE: XR ANKLE RT MIN 3 VIEWS, XR FOOT RT MIN 3 VIEWS COMPARISON: 01/06/2021 HISTORY: Pain of right ankle joint FINDINGS: BONES:Remote osteotomy head of the first metatarsal fixed with a single screw. No acute fracture or dislocation. SOFT TISSUES:Negative. No visible soft tissue swelling. EFFUSION:None visible. OTHER: Negative. IMPRESSION: No acute abnormality Electronically authenticated by: NICKI DACOSTA Date: 2022-07-27 19:[address] [place], [place] [id number] NotePROCEDURE: XR ANKLE RT MIN 3 VIEWS, XR FOOT RT MIN 3 VIEWS COMPARISON: 01/06/2021 HISTORY: Pain of right ankle joint FINDINGS: BONES:Remote osteotomy head of the first metatarsal fixed with a single screw. No acute fracture or dislocation. SOFT TISSUES:Negative. No visible soft tissue swelling. EFFUSION:None visible. OTHER: Negative. IMPRESSION: No acute abnormality Electronically authenticated by: NICKI DACOSTA Date: 2022-07-27 19:[address] [place], [place] [id number] Miscellaneous Notes* Telephone Encounter - Silvia Ybarra - 07/26/2022 2:56 PM EDT PA for Dexlansoprazole initiated electronically. Awaiting response [employer] ID# [id number] * Telephone Encounter - Tracy Khan PSS - 07/26/2022 1:43 PM EDT Patient needs a prior authorization Medication Order name: Dexlansoprazole 60 mg CpDM Medication: DEXLANSOPRAZOLE 60 MG CAPSULE,BIPHASE DELAYED RELEASE [[id number]] Dispense as Written: No documented in this encounterLake[facility]09-20-2022 History of Present illness Narrative* Mary Obrien MD - 07/26/2022 11:20 AM EDT COLORECTAL SURGERY July 26, 2022 Mary Kenny Elvis Chief Complaint: post op visit/ colonic inertia History of Present Illness: Mary Leal is a 52 year old female presents to the office for a post op evaluation after undergoing a Laparoscopic Total Abdominal Colectomy, Ileostomy Takedown, Ileorectal Anastomosis, FlexibleSigmoidoscopy on 03/28/2022 for colonic inertia and pelvic floor dysfunction. Symptoms: + anorexia since surgery, worse in the last few weeks when her father Eats small meals + BM daily, no difficulty passing. Does not push or strain. Stool is very soft No nausea or abdominal pain + occasional pain by umbilicus/stoma site PAST MEDICAL HISTORY Diagnosis Date Asthma as a child Bipolar 1 disorder (HCC) Gastroparesis History of laparoscopic-assisted vaginal hysterectomy 10/2015 for endometriosis HTN (hypertension) PTSD (post-traumatic stress disorder) PAST SURGICAL HISTORY Procedure Laterality Date COLONOSCOPY EGD 2019 with dilation PAST SURGICAL HISTORY OF left foot reconstruction PAST SURGICAL HISTORY OF cervical neck surgery PAST SURGICAL HISTORY OF Left ACL PAST SURGICAL HISTORY OF anal fissure PAST SURGICAL HISTORY OF Left CTR PAST SURGICAL HISTORY OF appendectomy PAST SURGICAL HISTORY OF bilat bunionectomy PAST SURGICAL HISTORY OF 12/24/2021 laparoscopic proctopexy with diverting loop ileostomy, anterior & posterior colporrhaphy and sling 12/24/2021 TONSILLECTOMY HX 02/11/2021 and septoplasty TONSILLECTOMY HX 07/2021 revision VAGINAL HYSTERECTOMY 2014 [facility] 10/2015 for endometriosis, has remaining both Current Outpatient Medications Medication Sig Dispense Refill Dexlansoprazole 60 mg CpDM take 1 capsule by mouth before breakfast 30 capsule 5 traZODone (DESYREL) 50 mg tablet Take 150 mg by mouth daily at bedtime. vortioxetine (TRINTELLIX) 10 mg tablet Take 10 mg by mouth once daily. rOPINIRole (REQUIP) 2 mg tablet Take 2 mg by mouth twice daily. Takes 2 mg in the AM and 4 mg PM yprsiauujme-fggvqzezr-lrkzntjp (TRELEGY ELLIPTA) 100-62.5-25 mcg Inhale 1 Puff as instructed once daily. iv contrast (will be provided with radiology test) CT ABD/PEL -Inject, intravenously, once for 1 dose.No IV access, insert saline lock prior to the beginning of sedation, infusion, injection of imaging exam. Discontinue saline lock post exam. If Pt. has a central line or IVAD, may access for administration according to line specific nursing protocol. Once exam is complete flush line and de-accessaccording to line specific nursing protocol in the CT contrast administration guidelines link. 1 Each 0 lactobacillus rhamnosus (CULTURELLE) 10 billion cell capsule Take 1 capsule by mouth once daily. 30capsule 0 tiZANidine (ZANAFLEX) 2 mg tablet Take 1 tablet by mouth every 8 hours as needed. 30 tablet 0 atorvastatin (LIPITOR) 20 mg tablet Take 20 mg by mouth once daily. nystatin (MYCOSTATIN) cream Apply 1 application to affected area twice daily. 30 g 0 clonazePAM (KLONOPIN) 1 mg tablet Take 0.5 mg by mouth twice daily. fluticasone (FLONASE) 50 mcg/actuation nasal spray Use 1 Morrison in each nostril once daily. carBAMazepine XR (TEGRETOL XR) 400 mg 12 hr tablet Take 400 mg by mouth q 12 HR. ARIPiprazole (ABILIFY) 30 mg tablet Take 30 mg by mouth once daily. albuterol HFA (PROVENTIL HFA, VENTOLIN HFA) 90 mcg/actuation inhaler inhale 2 puffs by mouth INTO THE LUNGS every 4 hours if needed atenolol (TENORMIN) 50 mg tablet Take 50 mg by mouth once daily. No current facility-administered medications for this visit. ALLERGIES Allergen Reactions Risperidone Intolerance Breast discharge FAMILY HISTORY Problem Relation Age of Onset Hypertension Mother Dementia Mother Hypertension Father other (atrial fibrillation) Father Social History Tobacco Use Smoking status: Never Smokeless tobacco: Never Substance Use Topics Alcohol use: Never Drug use: Never Physical Exam: BP 110/83 (BP Site: Right Arm, BP Position: Sitting) Pulse 95 Temp 36.4 C (97.5 F) Ht 162.6 cm (5' 4 ) Wt 77.6 kg (171 lb) SpO2 97% BMI 29.35 kg/m General Appearance: Well appearing, alert, in no acute distress, well-hydrated, well nourished. Abdomen: soft ND NT. Incisions well healed no hernia appreciated at umbilicus or stoma site but TTPat stoma site with deep palpation Assessment Assessment and Plan: Mary Leal is a 52 year old female with pelvic floor dysfunction and colonic inertia s/p TotalAbdominal Colectomy, Ileostomy Takedown, Ileorectal Anastomosis 03/28/2022. New periumbilical pain. CT A/P to evaluate for incisional hernia - will MyChart with results Counseled on warning signs of incarceration Boost/Ensure if ongoing anorexia and weight loss RTC 6 months Medical Decision Making: Data Reviewed: Tests & Documents Reviewed/ordered: Review of prior notes from myself, [facility] Review of prior operative reports Additional testing or imaging to be ordered: CT A/P I have discussed Mary Leal's treatment plan and/or results with the patient. I spent a total of 40 minutes on the date of the service which included preparing to see the patient, [id number] patient care, completing clinical documentation, obtaining and/or reviewing separately obtained history, performing a medically appropriate examination, counseling and educating the pat ient/family/caregiver, ordering medications, tests, or procedures, and care coordination (not separately reported). Mary Obrien MD Colorectal Surgery documented in this encounterLake[facility]09-20-2022 Nurse Note* Re Sierra MA - 07/26/2022 11:12 AM EDT What is the reason for your visit today? Established patient presents for post op. Who is your referring physician? Are you having poor oral intake? NO Have you had unintentional weight loss of 15 lbs/7 Kg in the last 3-6 months? NO Bowels: Wound: none Temperature: No Drains: No documented in this encounterLakehealth [facility]08-04-2022 NotePROCEDURE: In the coronal projection, without intravenous contrast, 3 mm contiguous intervals were performed through the paranasal sinuses. FINDINGS: Normal paranasal sinus development. Left maxillary posterior sinus floor 1 cm rounded structure consistent with a mucous retention cyst. Minimal dependent layering fluid. Very mild right maxillary floor mucosal thickening. No osteomeatal unit compromise. No nasal mass. Minimal nasal septal deviation. No bg bullosa. Normal intra-cranial contents. Normal mastoid air cell and tympanic cavity aeration. Normal nasopharyngeal soft tissues. Normal intra-cranial contents. IMPRESSION: 1. Left maxillary sinus floor mucous retention cyst 2. No significant sinus fluid or ostemeatal unit compromise at this time Report reported and signed by Qiunton Carson on 06/09/2022 [id number]08-02-2022 Miscellaneous Notes* Telephone Encounter - Raquel Mullen - 06/07/2022 3:34 PM EDT Patient needs RX sent to [facility]. The previous was sent to pharmacy which she cannot get to for its an hour away from her house. * Telephone Encounter - Raquel Mullen - 06/06/2022 4:00 PM EDT Patient calling in in regards to prescription refill request from last week. * Telephone Encounter - Raquel Mullen - 05/30/2022 8:12 AM EDT Patient's request for medication is as follows: Pending Prescriptions Disp Refills LACTOBACILLUS RHAMNOSUS GG 10 BILLION CELL CAPSULE 30 capsule 0 Sig: Take 1 capsule by mouth once daily. OGLA: No Prescription(s) as above. Please process accordingly. Raquel Mullen documented in this encounterLakehealth [facility] Center07-21-2022 Evaluation note* Encounter Date Diagnosis Assessment Notes Treatment Notes Treatment Clinical Notes May, Lumbosacral spondylosis without myelopathy (ICD-10 - M47.817) The patient notes some benefit from bilateral lumbar facet radiofrequency ablation. We will continue to monitor her symptoms in this region. Anatomy of spine discussed in detail with patient in regard to patients condition. Overall, patient believes their pain is reasonably well controlled, and she is in agreement with our treatment plan. May, Cervical spondylosis without myelopathy (ICD-10 - M47.812) Patients primary complaint today is worsening left cervical pain. Given previous positive results, as well as location of pain and exam findings, patient is a candidate for a repeat left cervical facet radiofrequency ablation which we will proceed with. Risks and benefits of procedure explained to patient; patient verbalizes understanding. Anatomy of spine discussed in detail with patient in regards to patients condition. May, Other chronic pain (ICD-10 - G89.29) May, Other Above note writ ten by Lupillo Amezquita MA, Machine Repairer. Edited and approved by Dr. Annette Harris MD. [employer] Other 07-05-2022 Evaluation note* Encounter Date Diagnosis Assessment Notes Treatment Notes Treatment Clinical Notes May, Contact with and (suspected) exposure to covid-19 (ICD-10 - Z20.822) May, Allergic sinusitis (ICD-10 - J30.9) Symptoms appear viral today. Bacteria infections take several days to weeks of symptoms to develop. Use saline nasal spray before prescription one and you have better results. Recommend OTC medications such as Mucinex DM, Delsym, Cepocal Lozenges Continue tylenol/ibuprofen for general discomfort. Encourage fluids. Symptoms should improve within the next 10-14 days. If no improvement of symptoms in 14 days call primary care provider to discuss antibiotic therapy May, Nausea (ICD-10 - R11.0) Nausea can be caused because of symptoms of other illnesses, gastro related viruses, headaches, etc. Use medication as directed. Encourage fluid intake and try to start with small sips of fluid. Watch for signs and symptoms of dehydration including decrease in urine output, dry mucus membranes, etc. Fluid intake is more important than food intake. Follow up with primary care provider if no improvement of symptoms within the next few days. Seek emergency treatment if signs of dehydration occur such as decrease in urine, dry mouth, etc May, Other Additional time spent conducting pre-visit phone call, screening for symptoms, instructions on social distancing, application and removal of PPE, and cleaning of examination room, equipment and supplies was performed. Patient education given for testing methodology and results. Patient care instructions given in writing by [facility] document. [employer] Other 06-28-2022 Miscellaneous Notes* Telephone Encounter - See Wong RN - 05/03/2022 10:44 AM EDT She called the office this morning. I returned her call. She states that she is having some pain atthe incision site. No nausea or vomiting, passing gas, having bowel movements, no redness around incision site, no drainage, no fever or chills. Just pain around incision site and occasional cramping. I informed her that the healing process can take a couple of weeks. To listen to the body if she is over exerting herself. She will go to the nearest emergency room or call the office if she has anyof the symptoms previously described. No other questions or concerns at this time. documented in this encounterLakehealth [facility] Center06-21-2022 Miscellaneous Notes* Telephone Encounter - See Wong RN - 04/26/2022 12:16 PM EDT Returned call. Advised her not to go swimming for at least another 2 weeks giving the incisions time to heal and prevent infection. She states that her incisions are looking better. The redness around the sites have decreased. No drainage. No fevers. She will call back with any other questions or concerns. * Telephone Encounter - Raquel Mullen - 04/26/2022 8:16 AM EDT Patient would like to know if she can go swimming after her procedure on 03/28. Thanks! documented in this encounterLakehealth [facility]point [facility] Center06-17-2022 History of Present illness Narrative* Jessi Sheets APRN.AUTOMOTIVE SERVICE TECHNICIAN - 04/22/2022 12:20 PM EDT COLORECTAL SURGERY April 22, 2022 Mary Leal 51 year old Chief Complaint: post-op visit History of Present Illness: Mary Leal is a 51 year old female with a diagnosis of Colonic inertia, Pelvic floor dysfunction. Now s/p a Laparoscopic Total Abdominal Colectomy, Ileostomy Takedown, Ileorectal Anastomosis, Flexible Sigmoidoscopy on 03/28/[address] Obrien. She presents today for her follow up visit. She wentto the ED over the weekend for incisional pain. She was prescribed keflex and bactrim for an incisional infection. The pain has not worsened and the erythema is slightly improving. No drainage, no fevers or chills. She is half way through her course of antibiotics. We discussed adding a probiotic and completing the course of antibiotics and further follow up as indicated based on how the incision looks/feels. No nausea or emesis. having regular formed BMs a few times a day, no incontinence. Pain is tolerable. PAST MEDICAL HISTORY Diagnosis Date Asthma as a child Bipolar 1 disorder (HCC) Gastroparesis History of laparoscopic-assisted vaginal hysterectomy 10/2015 for endometriosis HTN (hypertension) PTSD (post-traumatic stress disorder) PAST SURGICAL HISTORY Procedure Laterality Date COLONOSCOPY EGD 2019 with dilation PAST SURGICAL HISTORY OF left foot reconstruction PAST SURGICAL HISTORY OF cervical neck surgery PAST SURGICAL HISTORY OF Left ACL PAST SURGICAL HISTORY OF anal fissure PAST SURGICAL HISTORY OF Left CTR PAST SURGICAL HISTORY OF appendectomy PAST SURGICAL HISTORY OF bilat bunionectomy PAST SURGICAL HISTORY OF 12/24/2021 laparoscopic proctopexy with diverting loop ileostomy, anterior & posterior colporrhaphy and sling 12/24/2021 TONSILLECTOMY HX 02/11/2021 and septoplasty TONSILLECTOMY HX 07/2021 revision VAGINAL HYSTERECTOMY 2014 LAV 10/2015 for endometriosis, has remaining both Current Outpatient Medications Medication Sig Dispense Refill lactobacillus rhamnosus (CULTURELLE) 10 billion cell capsule Take 1 capsule by mouth once daily. 30capsule 0 tiZANidine (ZANAFLEX) 2 mg tablet Take 1 tablet by mouth every 8 hours as needed. 30 tablet 0 Dexlansoprazole 60 mg CpDM take 1 capsule by mouth before breakfast 30 capsule 5 traZODone (DESYREL) 50 mg tablet Take 150 mg by mouth daily at bedtime. atorvastatin (LIPITOR) 20 mg tablet Take 20 mg by mouth once daily. nystatin (MYCOSTATIN) cream Apply 1 application to affected area twice daily. 30 g 0 vortioxetine (TRINTELLIX) 10 mg tablet Take 10 mg by mouth once daily. clonazePAM (KLONOPIN) 1 mg tablet Take 0.5 mg by mouth twice daily. fluticasone (FLONASE) 50 mcg/actuation nasal spray Use 1 Morrison in each nostril once daily. carBAMazepine XR (TEGRETOL XR) 400 mg 12 hr tablet Take 400 mg by mouth q 12 HR. rOPINIRole (REQUIP) 2 mg tablet Take 2 mg by mouth twice daily. Takes 2 mg in the AM and 4 mg PM ARIPiprazole (ABILIFY) 30 mg tablet Take 30 mg by mouth once daily. albuterol HFA (PROVENTIL HFA, VENTOLIN HFA) 90 mcg/actuation inhaler inhale 2 puffs by mouth INTO THE LUNGS every 4 hours if needed lbzcuhcbmqj-ponikdshw-hozjesns (TRELEGY ELLIPTA) 100-62.5-25 mcg Inhale 1 Puff as instructed once daily. atenolol (TENORMIN) 50 mg tablet Take 50 mg by mouth once daily. No current facility-administered medications for this visit. ALLERGIES Allergen Reactions Risperidone Intolerance Breast discharge FAMILY HISTORY Problem Relation Age of Onset Hypertension Mother Dementia Mother Hypertension Father other (atrial fibrillation) Father Social History Tobacco Use Smoking status: Never Smoker Smokeless tobacco: Never Used Substance Use Topics Alcohol use: Never Drug use: Never Physical Exam: BP 104/68 Pulse 76 Ht 162.6 cm (5' 4 ) Wt 77.6 kg (171 lb) SpO2 98% BMI 29.35 kg/m General Appearance: Well appearing, alert, in no acute distress, well-hydrated, well nourished. Abdomen: soft, non-tender, non-distended. pfannenstiel incision with mild erythema, no edema or induration. Not warm to the touch. Tender with exam. Assessment Assessment and Plan: Mary Leal is a 51 year old female Laparoscopic Total Abdominal Colectomy, Ileostomy Takedown,Ileorectal Anastomosis, Flexible Sigmoidoscopy on 03/28/2022. -doing well post-op, expected recovery course. -complete course of antibiotics, add probiotics. Early call next week to discuss how incision looks/feels. -no need to resume motegrity. -OK to slowly advance diet as tolerated at home. -continue lifting and activity restrictions for 6 weeks post-op. -further follow up with Dr. Obrien in 3 months, scheduled for the patient today. Medical Decision Making: Data Reviewed: Tests & Documents Reviewed/ordered: Review of prior notes from hospitalization Review of prior operative reports I have independently interpreted: n/a I have discussed Mary Leal's treatment plan and/or results with the patient, Dr. Obrien. Risk of morbidity, mortality and/or complications of treatment plan: low Jessi Sheets APRN.AUTOMOTIVE SERVICE TECHNICIAN Colorectal Surgery [facility]* Mary Mena MA - 04/22/2022 12:06 PM EDT .What is the reason for your visit today? Post op Who is your referring physician? Self Are you having poor oral intake? NO Have you had unintentional weight loss of 15 lbs/7 Kg in the last 3-6 months? NO Bowels: regular Wound: none Temperature: No Drains: No documented in [facility] Miscellaneous Notes* Telephone Encounter - Rachael - 04/07/2022 12:35 AM EDT Record ID: [id number] Patient name: Mary Leal Date: April 06, 2022 - 07:35 Administered by: RACHAEL Protocol: Did you receive your discharge instructions? -> yes Do you have any questions about your discharge instructions? Or do you need clarification on anything? -> no Is that correct? -> yes Do you think you'll be able to attend your follow-up appointment? -> yes Do you have any questions about getting or taking your medications? -> no Do you have any new or worsening symptoms? -> no How likely is it that you would recommend [facility] to a friend or family member? -> likely Please tell me what you liked best about your hospital experience: -> The nurses documented in [facility] NoteHNO ID: [id number] Author: Pravin Ladd MD Service: Colorectal Author Type: Resident Type: Progress Notes Filed: 04/05/2022 7:52 AM Note Text: COLORECTAL SURGERY PROGRESS NOTE Mary Leal [id number] ASSESSMENT AND PLAN Mary Leal is a 51 year old female with PMHx Asthma, HTN, BPD, Dyslipidemia and colonic inertia who is now s/p Hand assisted TAC, EI takedown + OANH 03/28. CT a/p on 04/03 unrevealing. - For discharge today - Follow up in clinic Patient Active Hospital Problem List: Chronic constipation (03/28/2022) SUBJECTIVE: Tolerating diet No nausea or vomiting Ambulating Passing stool that is more formed, non Bloody OBJECTIVE: BP 101/58 Pulse 75 Temp 37 ?C (98.6 ?F) (Oral) Resp 18 Ht 162.6 cm (5' 4 ) Wt 83 kg (183 lb) SpO2 95% BMI 31.41 kg/m? Body mass index is 31.41 kg/m?. GENERAL: Alert and oriented, no acute distress, cooperative. LUNGS: Non labored breathing ABDOMEN: soft,non tender and non-distended, prior ostomy site incision cdi Labs: CBC, Coags, BMP, Mg, Phos Recent Labs 04/04/22 0754 04/03/22 0203 WBC 6.21 7.39 HB 10.7* 10.2* HCT 31.2* 29.5* PLT 436* 342 NA 140 138 K 3.9 3.3* CHLOR 104 103 CO2 26 25 BUN 3* 4* CREAT 0.56* 0.60 GLUC 112* 106* CA 8.9 8.4* MG 2.1 1.6* P 3.2 3.3 Liver Function, Amylase, AND Lipase I/O past 24h: Intake/Output Summary (Last 24 hours) at 04/05/2022 0751 Last data filed at 04/04/2022 2149 Gross per 24 hour Intake 100 ml Output ? Net 100 ml LDA: Lines, Drains, and Airways Line Peripheral 04/01/22 1815 Short Right Forearm 24 Gauge 3 days SURGERY/PROCEDURE: Procedure(s) and Anesthesia Type: * LAPAROSCOPIC TOTAL COLECTOMY LITHOTOMY - General * LAP CLOSURE OF ENTEROSTOMY W/ RESECTION AND ANASTOMOSIS - General Pravin Ladd MD General Surgery residentHigh Point [id number] NoteHNO ID: [id number] Author: Nita Lamas MD Service: Colorectal Author Type: Fellow Type: Progress Notes Filed: 04/04/2022 9:40 AM Note Text: COLORECTAL SURGERY PROGRESS NOTE Mary Leal [id number] ASSESSMENT AND PLAN Mary Leal is a 51 year old female with PMHx Asthma, HTN, BPD, Dyslipidemia and colonic inertia who is now s/p Hand assisted TAC, EI takedown + OANH 03/28. CT a/p on 04/03 unrevealing. - Trial of diet today. - Electrolytes replacement - Pain control - DVT prophylaxis - Encourage mobilization and use of IS - Discussed importance of oral meds and mobilization Patient Active Hospital Problem List: Chronic constipation (03/28/2022) SUBJECTIVE: N/v resolved. Feels better. Ongoing diarrhea. OBJECTIVE: BP 118/72 Pulse 70 Temp 36.7 ?C (98.1 ?F) Resp 18 Ht 162.6 cm (5' 4 ) Wt 83 kg (183 lb) SpO2 97% BMI 31.41 kg/m? Body mass index is 31.41 kg/m?. GENERAL: Alert and oriented, no acute distress, cooperative. LUNGS: Non labored breathing ABDOMEN: soft, mildly tender and non-distended, prior ostomy site incision cdi WOUND: clean, dry and intact Labs: CBC, Coags, BMP, Mg, Phos Recent Labs 04/04/22 0754 04/03/22 0203 04/01/22 1459 WBC 6.21 7.39 7.39 HB 10.7* 10.2* 9.6* HCT 31.2* 29.5* 29.3* PLT 436* 342 282 NA -- 138 141 K -- 3.3* 3.7 CHLOR -- 103 106* CO2 -- 25 26 BUN -- 4* 4* CREAT -- 0.60 0.68 GLUC -- 106* 99 CA -- 8.4* 7.9* MG -- 1.6* 1.7 P -- 3.3 2.8 Liver Function, Amylase, AND Lipase I/O past 24h: Intake/Output Summary (Last 24 hours) at 04/04/2022 0852 Last data filed at 04/03/2022 2231 Gross per 24 hour Intake 735 ml Output 1 ml Net 734 ml LDA: Lines, Drains, and Airways Line Peripheral 04/01/22 1815 Short Right Forearm 24 Gauge 2 days Peripheral 04/03/22 0837 Assessment Left Forearm 22 Gauge 1 day SURGERY/PROCEDURE: Procedure(s) and Anesthesia Type: * LAPAROSCOPIC TOTAL COLECTOMY LITHOTOMY - General * LAP CLOSURE OF ENTEROSTOMY W/ RESECTION AND ANASTOMOSIS - General Nita Lamas MD Colorectal Fellow 04/04/2022 9:40 [facility]05-29-2022 NoteHNO ID: [id number] Author: Pravin Ladd MD Service: Colorectal Author Type: Resident Type: Progress Notes Filed: 04/03/2022 8:03 AM Note Text: COLORECTAL SURGERY PROGRESS NOTE Mary Leal [id number] ASSESSMENT AND PLAN Mary Leal is a 51 year old female with PMHx Asthma, HTN, BPD, Dyslipidemia and colonic inertia who is now s/p Hand assisted TAC, EI takedown + OANH 03/28 Continues to have nausea - CT Abd/Pelvis today - Pain control - DVT prophylaxis - Encourage mobilization and use of IS - Discussed importance of oral meds and mobilization Patient Active Hospital Problem List: Chronic constipation (03/28/2022) SUBJECTIVE: Persistent nausea/bloating this morning No vomiting Passing flatus and non bloody BMs OBJECTIVE: BP 124/78 Pulse 75 Temp 36.9 ?C (98.4 ?F) (Oral) Resp 18 Ht 162.6 cm (5' 4 ) Wt 83 kg (183 lb) SpO2 97% BMI 31.41 kg/m? Body mass index is 31.41 kg/m?. GENERAL: Alert and oriented, no acute distress, cooperative. LUNGS: Non labored breathing ABDOMEN: soft, mildly tender and distended , prior ostomy site incision cdi WOUND: clean, dry and intact Labs: CBC, Coags, BMP, Mg, Phos Recent Labs 04/03/22 0203 04/01/22 1459 03/31/22 0910 WBC 7.39 7.39 8.57 HB 10.2* 9.6* 9.9* HCT 29.5* 29.3* 30.0* PLT 342 282 246 NA 138 141 140 K 3.3* 3.7 3.8 CHLOR 103 106* 107* CO2 25 26 23 BUN 4* 4* 11 CREAT 0.60 0.68 0.67 GLUC 106* 99 84 CA 8.4* 7.9* 8.4* MG 1.6* 1.7 1.6* P 3.3 2.8 2.7 Liver Function, Amylase, AND Lipase I/O past 24h: Intake/Output Summary (Last 24 hours) at 04/03/2022 0800 Last data filed at 04/02/2022 1955 Gross per 24 hour Intake 2383 ml Output 500 ml Net 1883 ml LDA: Lines, Drains, and Airways Line Subcutaneous 03/28/22 1550 Peripheral Nerve Block Right Abdomen 5 days Subcutaneous 03/28/22 1624 Assessment Peripheral Nerve Block Left Abdomen 5 days Peripheral 04/01/22 1815 Short Right Forearm 24 Gauge 1 day SURGERY/PROCEDURE: Procedure(s) and Anesthesia Type: * LAPAROSCOPIC TOTAL COLECTOMY LITHOTOMY - General * LAP CLOSURE OF ENTEROSTOMY W/ RESECTION AND ANASTOMOSIS - General Pravin Ladd MD General Surgery ResidentHigh Point [id number] NoteHNO ID: [id number] Author: Nancy Cadena MD Service: Colorectal Author Type: Resident Type: Progress Notes Filed: 04/02/2022 8:34 AM Note Text: COLORECTAL SURGERY PROGRESS NOTE Mary Leal [id number] ASSESSMENT AND PLAN Mary Leal is a 51 year old female with PMHx Asthma, HTN, BPD, Dyslipidemia and colonic inertia who is now s/p Hand assisted TAC, EI takedown + OANH 03/28 - NPO with sips/chips - DVT prophylaxis - Encourage mobilization and use of IS - Dispo: RNF for now Discussed with Dr. Clark Patient Active Hospital Problem List: Chronic constipation (03/28/2022) SUBJECTIVE: Pain well controlled Persistent nausea/bloating this morning Passing flatus with BMs only Multiple liquid BM , non bloody Patient was unable to tolerate FLD yesterday due to nausea and bloating KUB on rounds overall unimpressive this AM with some small bowel dilatation without significant gastric bubble OBJECTIVE: BP 102/62 Pulse 70 Temp 36.9 ?C (98.4 ?F) (Oral) Resp 18 Ht 162.6 cm (5' 4 ) Wt 83 kg (183 lb) SpO2 96% BMI 31.41 kg/m? Body mass index is 31.41 kg/m?. GENERAL: Alert and oriented, no acute distress, cooperative. LUNGS: Non labored breathing ABDOMEN: soft, distended , mild diffusely tender, prior ostomy site incision cdi WOUND: clean, dry and intact Labs: CBC, Coags, BMP, Mg, Phos Recent Labs 04/01/22 1459 03/31/22 0910 03/30/22 0746 WBC 7.39 8.57 11.25* HB 9.6* 9.9* 11.8 HCT 29.3* 30.0* 35.0* PLT 282 246 293 NA 141 140 137 K 3.7 3.8 3.9 CHLOR 106* 107* 103 CO2 26 23 24 BUN 4* 11 13 CREAT 0.68 0.67 0.69 GLUC 99 84 117* CA 7.9* 8.4* 8.5 MG 1.7 1.6* 1.6* P 2.8 2.7 2.9 Liver Function, Amylase, AND Lipase I/O past 24h: Intake/Output Summary (Last 24 hours) at 04/02/2022 0616 Last data filed at 04/02/2022 0526 Gross per 24 hour Intake 2101 ml Output 2650 ml Net -549 ml LDA: Lines, Drains, and Airways Line Subcutaneous 03/28/22 1550 Peripheral Nerve Block Right Abdomen 4 days Subcutaneous 03/28/22 1624 Assessment Peripheral Nerve Block Left Abdomen 4 days Peripheral 04/01/22 1815 Short Right Forearm 24 Gauge <1 day SURGERY/PROCEDURE: Procedure(s) and Anesthesia Type: * LAPAROSCOPIC TOTAL COLECTOMY LITHOTOMY - General * LAP CLOSURE OF ENTEROSTOMY W/ RESECTION AND ANASTOMOSIS - General Nancy Cadena MD General Surgery Resident, PGY-2 [id number] NoteHNO ID: [id number] Author: Nancy Cadena MD Service: Colorectal Author Type: Resident Type: Progress Notes Filed: 04/01/2022 7:15 AM Note Text: Attestation signed by Mary Obrien MD at 04/01/2022 7:21 PM [employer] STAFF PHYSICIAN NOTE OF PERSONAL INVOLVEMENT IN CARE I have reviewed the history and physical exam obtained and documented by the resident and I personally participated in the tejada components. I have confirmed and edited as necessary, the PFSH and ROS obtained by others. I have discussed the case and management of the patient's care. The following comments revise or confirm relevant tejada components of the note. + nausea no emesis + liquid stool no flatus Afebrile Abdomen: soft, distended, TTP around incisions and stoma site WBC normal IMPRESSION: Post op GI dysfunction PLAN: Pain control FLD for comfort IVF Resume Entereg DVT prophylaxis Mary Obrien MD Date of Service: April 01, 2022 COLORECTAL SURGERY PROGRESS NOTE Mary Leal [id number] ASSESSMENT AND PLAN Mary Leal is a 51 year old female with PMHx Asthma, HTN, BPD, Dyslipidemia and colonic inertia who is now s/p Hand assisted TAC, EI takedown + OANH 03/28 - Advance to FLD, monitor closely for nausea - Ana removed on POD 2 - DVT prophylaxis - Encourage mobilization and use of IS - Dispo: RNF for now Discussed with Dr. Obrien Patient Active Hospital Problem List: Chronic constipation (03/28/2022) SUBJECTIVE: Pain well controlled Persistent mild nausea this morning No flatus Multiple liquid BM , non bloody Persistent bloating Patient reports being very hungry and is currently very frustrated at her NPO status, regardless of symptoms OBJECTIVE: BP 115/73 Pulse 84 Temp 37.1 ?C (98.8 ?F) (Oral) Resp 18 SpO2 95% There is no height or weight on file to calculate BMI. GENERAL: Alert and oriented, no acute distress, cooperative. LUNGS: Non labored breathing ABDOMEN: soft, distended , appropriately tender, prior ostomy site incision cdi WOUND: clean, dry and intact Labs: CBC, Coags, BMP, Mg, Phos Recent Labs 03/31/22 0910 03/30/22 0746 03/29/22 0752 WBC 8.57 11.25* 7.04 HB 9.9* 11.8 10.7* HCT 30.0* 35.0* 32.3* PLT 246 293 241 NA 140 137 138 K 3.8 3.9 4.1 CHLOR 107* 103 105 CO2 23 24 24 BUN 11 13 12 CREAT 0.67 0.69 0.70 GLUC 84 117* 92 CA 8.4* 8.5 7.9* MG 1.6* 1.6* 1.4* P 2.7 2.9 2.9 Liver Function, Amylase, AND Lipase I/O past 24h: Intake/Output Summary (Last 24 hours) at 04/01/2022 0713 Last data filed at 04/01/2022 0613 Gross per 24 hour Intake 160 ml Output 1350 ml Net -1190 ml LDA: Lines, Drains, and Airways Line Peripheral 03/28/22 0819 Right Hand 22 Gauge 3 days Peripheral 03/28/22 0920 Left Hand 18 Gauge 3 days Subcutaneous 03/28/22 1550 Peripheral Nerve Block Right Abdomen 3 days Subcutaneous 03/28/22 1624 Assessment Peripheral Nerve Block Left Abdomen 3 days SURGERY/PROCEDURE: Procedure(s) and Anesthesia Type: * LAPAROSCOPIC TOTAL COLECTOMY LITHOTOMY - General * LAP CLOSURE OF ENTEROSTOMY W/ RESECTION AND ANASTOMOSIS - General Nancy Cadena MD General Surgery Resident, PGY-2 [id number] [id number] NoteHNO ID: [id number] Author: Yolanda Lamb MD Service: Colorectal Author Type: Resident Type: Progress Notes Filed: 03/31/2022 9:08 AM Note Text: COLORECTAL SURGERY PROGRESS NOTE Mary Leal [id number] ASSESSMENT AND PLAN Mary Leal is a 51 year old female with PMHx Asthma, HTN, BPD, Dyslipidemia and colonic inertia who is now s/p Hand assisted TAC, EI takedown + OANH 03/28 -NPO with sips and chips - Trace a.m labs - DC miralax - Ana removed on POD 2 - DVT prophylaxis - Encourage mobilization and use of IS - Dispo: RNF for now Discussed with Dr. Obrien Patient Active Hospital Problem List: Chronic constipation (03/28/2022) SUBJECTIVE: Pain well controlled Nauseous this morning No flatus Multiple liquid BM , non bloody Feels bloated OBJECTIVE: BP 97/67 Pulse 94 Temp 37 ?C (98.6 ?F) (Oral) Resp 18 SpO2 98% There is no height or weight on file to calculate BMI. GENERAL: Alert and oriented, no acute distress, cooperative. LUNGS: Non labored breathing ABDOMEN: soft, distended , appropriately tender, prior ostomy site incision cdi WOUND: clean, dry and intact Labs: CBC, Coags, BMP, Mg, Phos Recent Labs 03/30/22 0746 03/29/22 0752 WBC 11.25* 7.04 HB 11.8 10.7* HCT 35.0* 32.3* PLT 293 241 NA 137 138 K 3.9 4.1 CHLOR 103 105 CO2 24 24 BUN 13 12 CREAT 0.69 0.70 GLUC 117* 92 CA 8.5 7.9* MG 1.6* 1.4* P 2.9 2.9 Liver Function, Amylase, AND Lipase I/O past 24h: Intake/Output Summary (Last 24 hours) at 03/31/2022 0906 Last data filed at 03/31/2022 0519 Gross per 24 hour Intake 360 ml Output 550 ml Net -190 ml LDA: Lines, Drains, and Airways Line Peripheral 03/28/22 0819 Right Hand 22 Gauge 3 days Peripheral 03/28/22 0920 Left Hand 18 Gauge 2 days Subcutaneous 03/28/22 1550 Peripheral Nerve Block Right Abdomen 2 days Subcutaneous 03/28/22 1624 Assessment Peripheral Nerve Block Left Abdomen 2 days SURGERY/PROCEDURE: Procedure(s) and Anesthesia Type: * LAPAROSCOPIC TOTAL COLECTOMY LITHOTOMY - General * LAP CLOSURE OF ENTEROSTOMY W/ RESECTION AND ANASTOMOSIS - General Yolanda Lamb MDHigh Point [id number] NoteHNO ID: [id number] Author: Pravin Ladd MD Service: Colorectal Author Type: Resident Type: Progress Notes Filed: 03/30/2022 9:02 AM Note Text: Attestation signed by Mary Obrien MD at 03/30/2022 4:01 PM [employer] STAFF PHYSICIAN NOTE OF PERSONAL INVOLVEMENT IN CARE I have reviewed the history and physical exam obtained and documented by the resident and I personally participated in the tejada components. I have confirmed and edited as necessary, the PFSH and ROS obtained by others. I have discussed the case and management of the patient's care. The following comments revise or confirm relevant tejada components of the note. Nausea, no emesis + ROBF + urgency, no FI Abdomen soft, ND appropriately TTP around incisions. Ostomy site with ana removed, no erythema or induration IMPRESSION: Colon inertia s/p TAC with ileorectal anastomosis Pelvic floor dysfunction s/p suture rectopexy, ileostomy takedown Post-op nausea, no emesis PLAN: Pain control - TAP catheters per APS. Transition to PO pain meds today GI soft as tolerated Miralax Anti-emetics DVT prophylaxis Possible dispo tomorrow if nausea improved and taking adequate fluids Mary Obrien MD Date of Service: March 30, 2022 COLORECTAL SURGERY PROGRESS NOTE Maryjonathan Leal [id number] ASSESSMENT AND PLAN Maryjose Leal is a 51 year old female with PMHx Asthma, HTN, BPD, Dyslipidemia and colonic inertia who is now s/p Hand assisted TAC, EI takedown + OANH 03/28 - D/C NEGATIVE DEVELOPER - Advance to GI soft diet - Ana removed - DVT prophylaxis - Encourage mobilization and use of IS - Plan for discharge tomorrow Patient Active Hospital Problem List: Chronic constipation (03/28/2022) SUBJECTIVE: Pain well controlled. Tolerated liquids. No nausea or vomiting. Passing gas and liquid BMs. OBJECTIVE: BP 123/72 Pulse 110 Temp 36.8 ?C (98.2 ?F) (Oral) Resp 17 SpO2 92% There is no height or weight on file to calculate BMI. GENERAL: Alert and oriented, no acute distress, cooperative. LUNGS: Non labored breathing ABDOMEN: soft, non tender, non distended. WOUND: clean, dry and intact Labs: CBC, Coags, BMP, Mg, Phos Recent Labs 03/30/22 0746 03/29/22 0752 WBC 11.25* 7.04 HB 11.8 10.7* HCT 35.0* 32.3* PLT 293 241 NA 137 138 K 3.9 4.1 CHLOR 103 105 CO2 24 24 BUN 13 12 CREAT 0.69 0.70 GLUC 117* 92 CA 8.5 7.9* MG 1.6* 1.4* P 2.9 2.9 Liver Function, Amylase, AND Lipase I/O past 24h: Intake/Output Summary (Last 24 hours) at 03/30/2022 0857 Last data filed at 03/30/2022 0618 Gross per 24 hour Intake 120 ml Output 976 ml Net -856 ml LDA: Lines, Drains, and Airways Line Peripheral 03/28/22 0819 Right Hand 22 Gauge 2 days Peripheral 03/28/22 0920 Left Hand 18 Gauge 1 day Subcutaneous 03/28/22 1550 Peripheral Nerve Block Right Abdomen 1 day Subcutaneous 03/28/22 1624 Assessment Peripheral Nerve Block Left Abdomen 1 day SURGERY/PROCEDURE: Procedure(s) and Anesthesia Type: * LAPAROSCOPIC TOTAL COLECTOMY LITHOTOMY - General * LAP CLOSURE OF ENTEROSTOMY W/ RESECTION AND ANASTOMOSIS - General Pravin Ladd MDHigh Point [id number] NoteHNO ID: [id number] Author: ELIZABETH Dias Service: Care Management Author Type: Inclusion Specialist Type: Care Mgt Initial Assessment Filed: 03/29/2022 3:47 PM Note Text: CARE MANAGEMENT: ASSESSMENT AND DISCHARGE PLAN SERVICE DATE: March 29, 2022 SERVICE TIME: 1:45 PRIMARY CARE PHYSICIAN: Eliceo Willams DO ADMISSION STATUS: Inpatient NEEDS PRIOR TO DISCHARGE Needs Prior to Discharge: Ready for Discharge POTENTIAL TRANSITION PLANS No Services Indicated Based on clinical judgement, Care Management will address the following needs: No transitional/discharge planning needs at this time ADVANCE DIRECTIVES Current Advance Directive: None City Distribution Clerk Attempted to Assist with AD Completion: Yes Action: Education Provided MS/BEHAVIOR Baseline Mental Status Prior to this Illness what was the patient's Baseline Mental Status?: Alert AND Oriented Prior to this illness, has anyone described the patient having any of the following behaviors?: Disturbed Sleep Relationship of the informant to the patient:: Self HEALTH LITERACY READMISSION Last Discharge Date: 12/27/21 Is this Within the Past 30 days? From what level of care did patient present?: Home Last discharge within 30 days: No SDOH Food Insecurity: Not on file Financial Resource Strain: Not on file Transportation Needs: Not on file Housing Stability: Not on file PATIENT SCREEN Patient/Energy Project Manager Stated Goals: To be cured/healed Under the care of a PCP?: Yes, External Provider Does the patient have transportation upon discharge?: Yes Situation: family Use of any community resources?: No Does the patient have a stable and supportive living arrangement and home setting?: Yes Are there any potential risks or gaps identified by risk/functional/fall,etc. scores in the EMR?: No Any potential risks related to substance abuse and/or behavioral health?: No Based on clinical judgement, Care Management will address the following needs: No transitional/discharge planning needs at this time CAREGIVER ASSESSMENT Caregiver is ready, willing and able to meet the patient's needs as recommended by the inter-professional team:: No Caregiver needed MEDICAL No medical discharge barriers identified at this time. SOCIAL Primary Contact: Extended Emergency Contact Information Primary Emergency Contact: Charo Obando Mobile Relation: Daughter No social discharge barriers identified at this time. Patient's perception of need for this admission: get rid of the ostomy BEHAVIOR/COGNITIVE Psychosocial Needs: No behavioral/cognitive discharge barriers identified at this time. FUNCTIONAL No functional discharge barriers identified at this time. FREEDOM OF CHOICE EXPLAINED: Are you interested in bedside delivery of your medications? Yes ASSESSMENT AND PLAN: Patient is independent. Lives with SO and son. Here for ostomy takedown. No skilled needs. SIGNATURE: ELIZABETH Dias PATIENT NAME: Mary Leal DATE: March 29, 2022 TIME: 3:45 PM PHONE: [phone] [id number] NoteHNO ID: [id number] Author: Pravin Ladd MD Service: Colorectal Author Type: Resident Type: Progress Notes Filed: 04/01/2022 5:50 AM Note Text: COLORECTAL SURGERY PROGRESS NOTE Mary Leal [id number] ASSESSMENT AND PLAN Mary Leal is a 51 year old female with PMHx Asthma, HTN, BPD, Dyslipidemia and colonic inertia who is now s/p Hand assisted TAC, EI takedown + OANH 03/28 - NEGATIVE DEVELOPER for pain control - Magnesium replacement for hypomagnesemia - Clear liquid diet - DVT prophylaxis - Possible D/C call catheter today. Awaiting labs - Encourage mobilization and use of IS - Ana to be removed tomorrow Patient Active Hospital Problem List: Chronic constipation (03/28/2022) SUBJECTIVE: Pain overnight No nausea or vomiting. OBJECTIVE: BP 108/60 Pulse 91 Temp 36.7 ?C (98.1 ?F) (Oral) Resp 18 SpO2 99% There is no height or weight on file to calculate BMI. GENERAL: Alert and oriented, no acute distress, cooperative. LUNGS: Non labored breathing ABDOMEN: soft, appropriately tender, non distended. WOUND: clean, dry and intact Labs: CBC, Coags, BMP, Mg, Phos Liver Function, Amylase, AND Lipase I/O past 24h: Intake/Output Summary (Last 24 hours) at 03/29/2022 0711 Last data filed at 03/29/2022 0559 Gross per 24 hour Intake 2600 ml Output 950 ml Net 1650 ml LDA: Lines, Drains, and Airways Line Peripheral 03/28/22 0819 Right Hand 22 Gauge <1 day Peripheral 03/28/22 0920 Left Hand 18 Gauge <1 day Subcutaneous 03/28/22 1550 Peripheral Nerve Block Right Abdomen <1 day Subcutaneous 03/28/22 1624 Assessment Peripheral Nerve Block Left Abdomen <1 day Drain Indwelling Urinary Catheter 03/28/22 1 day SURGERY/PROCEDURE: Procedure(s) and Anesthesia Type: * LAPAROSCOPIC TOTAL COLECTOMY LITHOTOMY - General * LAP CLOSURE OF ENTEROSTOMY W/ RESECTION AND ANASTOMOSIS - General Pravin Ladd MDHigh Point [id number] NoteHNO ID: [id number] Author: Nathanael Craig DO Service: Anesthesiology Author Type: Anesthesiologist Type: Anesthesia Procedure Notes Filed: 03/28/2022 4:16 PM Note Text: ANESTHESIOLOGY PROCEDURE NOTE Peripheral Nerve Block General Information Procedure Start Time/Medication Administration: 03/28/2022 3:50 PM Procedure End time: 03/28/2022 3:55 PM Patient location during procedure: OR Timeout Performed Pre-procedure: timeout performed Consent Obtained: Yes 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: care steam and power supervisor and arm band Reason for block: post-op pain management/at surgeon's request Staffing Anesthesiologist: Nathanael Craig DO Preparation Sterility Preparation: hand hygiene performed prior to procedure, sterile gloves, drapes, and procedure tray, surgical cap used, mask used, sterile drape used during line insertion, skin prep agent completely dried prior to procedure Sterility Technique Not Completely Performed Due to Extreme Emergency: No Site Prep: Chloraprep Pre-Procedure Neuro Exam Location: ABDOMEN Sensory: intact Motor: intact Procedure Details Patient Position: supine Monitoring: EKG, Pulse OX and NIBP Block Type Trunk: TAP block Approach: anterior Laterality: bilateral Injection Technique: catheter Ultrasound Guided: Yes Image in Chart: yes Local Infiltration: Yes Needle Needle Type: stimulating and echogenic Needle Gauge: 18 G Needle Length: 10 cm Needle Localization: anatomical landmarks and ultrasound Needle Insertion Depth: 3 cm Catheter at Skin Depth: 8 cm Needle Insertion Depth: 3 cm Multiple Catheters Used: Yes Second Catheter at Skin Depth: 9 cm Assessment Injection assessment: negative aspiration, incremental injection and local visualized surrounding nerve on ultrasound Post-Procedure Neuro Exam Expected Regional Anesthesia: Yes Medications Administered Bupivacaine (PF) 0.25 % (2.5 mg/mL) injection (SENSORCAINE MPF), 30 mL Comments See nursing for vitals. Patient tolerated procedure well. Peripheral Nerve Block General Information Procedure Start Time/Medication Administration: 03/28/2022 3:55 PM Procedure End time: 03/28/2022 3:59 PM Patient location during procedure: OR Timeout Performed Pre-procedure: timeout performed Consent Obtained: Yes 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 and care steam and power supervisor Reason for block: post-op pain management/at surgeon's request Staffing Anesthesiologist: Nathanael Criag DO Preparation Sterility Preparation: hand hygiene performed prior to procedure, sterile gloves, drapes, and procedure tray, surgical cap used, mask used, sterile drape used during line insertion, skin prep agent completely dried prior to procedure Sterility Technique Not Completely Performed Due to Extreme Emergency: No Site Prep: Chloraprep Pre-Procedure Neuro Exam Location: ABDOMEN Sensory: intact Motor: intact Procedure Details Patient Position: supine Monitoring: Pulse OX, EKG and NIBP Block Type Trunk: rectus sheath block Approach: anterior Laterality: bilateral Injection Technique: single-shot Ultrasound Guided: Yes Image in Chart: yes Local Infiltration: Yes Needle Needle Type: stimulating Needle Gauge: 21 G Needle Length: 100 mm Needle Localization: anatomical landmarks and ultrasound Assessment Injection assessment: negative aspiration and incremental injection Post-Procedure Neuro Exam Expected Regional Anesthesia: Yes Medications Administered Bupivacaine (PF) 0.25 % (2.5 mg/mL) injection (SENSORCAINE MPF), 20 mL bupivacaine liposome (PF) 1.3 % (13.3 mg/mL) injection (EXPAREL), 266 mg SIGNATURE: Nathanael Craig DO PATIENT NAME: Mary Leal DATE: March 28, 2022 TIME: 4:14 PM CSN: [id number] NoteHNO ID: [id number] Author: Carmen Stanley APRN.ACCOUNT REVIEW SPECIALIST Service: Anesthesiology Author Type: Nurse Livestock Counter Type: Anesthesia Procedure Notes Filed: 03/28/2022 9:49 AM Note Text: ANESTHESIOLOGY PROCEDURE NOTE Airway General Information Procedure Start Time/Medication Administration: 03/28/2022 9:21 AM Patient location during procedure: OR 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, 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 Staffing ACCOUNT REVIEW SPECIALIST: Carmen Stanley APRN.ACCOUNT REVIEW SPECIALIST Performed by: ACCOUNT REVIEW SPECIALIST Indications and Patient Condition Preoxygenated: yes Difficult Mask: No Indications for airway management: anesthesia anesthesia circuit Method: asleep Final Airway Details Final airway type: endotracheal airway Final Endotracheal Airway: ETT Cuffed: yes Successful intubation technique: direct laryngoscopy Endotracheal tube insertion site: oral Blade: Dilia Blade size: #4 ETT size (mm): 7.5 Measured from: lips Measurement (cm): 21 Placement verified by: chest auscultation and capnometry Cormack-Lehane Classification: grade I - full view of glottis Number of attempts at approach: 1 Airway not difficult SIGNATURE: Carmen Stanley APRN.CRNA PATIENT NAME: Mary Leal DATE: March 28, 2022 TIME: 9:49 AM CSN: [id number] NoteHNO ID: [id number] Author: Carmen Stanley APRN.CRNA Service: Anesthesiology Author Type: Nurse Livestock Counter Type: Anesthesia Procedure Notes Filed: 03/28/2022 9:49 AM Note Text: ANESTHESIOLOGY PROCEDURE NOTE PIV General Information Procedure Start Time/Medication Administration: 03/28/2022 9:20 AM Patient Location: OR Staffing Anesthesiologist: Reinaldo Foster MD Performed by: anesthesiologist Preparation Sterility Preparation: hand hygiene performed prior to procedure Site Prep: chlorhexidine Procedure Details Indication: need for IV access Needle Size/Type: 18 gauge angiocath Orientation: Left Location: Hand Imaging Guidance Used: No SIGNATURE: Carmen Stanley APRN.ACCOUNT REVIEW SPECIALIST PATIENT NAME: Mary Leal DATE: March 28, 2022 TIME: 9:48 AM CSN: [id number] Miscellaneous Notes* Telephone Encounter - See Wong RN - 03/22/2022 11:41 AM EDT Returned call to Mary. She states that she has had some rectal pressure with gas coming out of her rectum. I discussed her symptoms with Dr Obrien and she states that this is normal because she stillhas working bowels after the procedure. If the pain increases she will call us back for an order for a CT scan or she will go to the ED to be evaluated. She was appreciative of the call. No other questions or concerns at this time. * Telephone Encounter - Raquel Mullen - 03/22/2022 10:20 AM EDT Patient called in because she has been feeling some pressure around the colon. Would like a call back at [phone] documented in this encounterL[facility]05-10-2022 Miscellaneous Notes* Telephone Encounter - Jennie Moreno RN - 03/15/2022 2:39 PM EDT Outside medical record EGD H Pylori biopsy received by fax. Scanned into [employer] under scanned documents. Hard copy handed to Dr. Masters. Per Dr Masters- please call patient and let her know the H Pylori biopsy is negative. Called patient . Message relayed. No questions at this time. * Telephone Encounter - Karthikeyan Morrissey RN - 03/15/2022 2:21 PM EDT Called [employer] and I was transferred to medical records. Requesting a cover sheet with the request result be faxed to them at [phone]. H Pylori result request faxed with confirmation. * Telephone Encounter - Karthikeyan Morrissey RN - 03/15/2022 2:21 PM EDT Images from the original note were not included. DO Leo Mariano Sp Ddsi Clinical Pool Please contact [employer] [phone] to see if the H pylori biopsy is back yet from her EGD there documented in this encounterLake[facility]05-10-2022 Evaluation note* Encounter Date Diagnosis Assessment Notes Treatment Notes Treatment Clinical Notes March, Other spondylosis with radiculopathy, lumbar region (ICD-10 - M47.26) March, Lumbosacral spondylosis without myelopathy (ICD-10 - M47.817) The patient notes some benefit from bilateral lumbar facet radiofrequency ablation. We will continue to monitor her symptoms in this region. Anatomy of spine discussed in detail with patient in regard to patients condition. Overall, patient believes their pain is reasonably well controlled, and she is in agreement with our treatment plan. March, Other chronic pain (ICD-10 - G89.29) March, Other low back pain (ICD-10 - M54.59) We discussed treatment options for the patient's persistent low bilateral sided lumbar/gluteal pain. She shows notable pain consistent with the sacroiliac joint. She has failed multiple previous conservative treatment options. Given location of pain and exam findings, patient is a candidate for bilateral sacroiliac joint injection, however at this time given her current health problems she does not wish to proceed with this. Risks and benefits of procedure explained to patient; patient verbalizes understanding. Anatomy of spine discussed in detail with patient in regard to patients condition. March, Other Above note writ ten by Wanda Yang LPN, Machine Repairer. Edited and approved by Dr. Annette Harris MD. [employer] Other 05-10-2022 Miscellaneous Notes* Telephone Encounter - Silvia Ybarra - 03/15/2022 1:24 PM EDT PA for Dexilant renewal initiated through [employer] Awaiting response ID# [id number] Rx BIN [id number] Rx PCN [id number] Rx Grp [id number] documented in this encounterLake[facility]05-10-2022 Miscellaneous Notes* Telephone Encounter - See Wong RN - 03/15/2022 9:28 AM EDT She called the office with complaints of dark red blood in her ostomy bag for the last 2 weeks. [place]was down in [place] when it started. She had an EGD in [place] that showed gastritis. She followed up with her GI doctor today who diagnosed her with GERD and is currently on Dexlansoprazole for treatment. CBC is normal. We advised her to go to the ED if large amounts of blood is noticed in the ostomy bag. She was informed that the dark red blood is from her GERD and she needs to stay away from spicy and acidic foods. She will continue to use Dexlansoprazole and if symptoms worsen she will callthe office. No other questions or concerns at this time. documented in this encounterLake[facility]05-10-2022 History of Present illness Narrative* Isra Masters DO - 03/15/2022 8:53 AM EDT FOLLOW UP VISIT CHIEF COMPLAINT Patient presents with: Gastroparesis Ms. Leal is here today for follow-up of: constipation. HPI I saw this 51y/o in follow up for her gi issues. She has noted some bright red blood in the ostomy bag starting about 2 weeks. She alos has had some chest pain that seem be musculoskeletal in nature.EGD done in [facility] showed some gastritis and duodenitis. Current Outpatient Medications Medication Sig Dispense Refill traZODone (DESYREL) 50 mg tablet Take 150 mg by mouth daily at bedtime. atorvastatin (LIPITOR) 20 mg tablet Take 20 mg by mouth once daily. nystatin (MYCOSTATIN) cream Apply 1 application to affected area twice daily. 30 g 0 Dexlansoprazole 60 mg CpDM take 1 capsule by mouth before breakfast 30 capsule 3 vortioxetine (TRINTELLIX) 10 mg tablet Take 10 mg by mouth once daily. clonazePAM (KLONOPIN) 1 mg tablet Take 0.5 mg by mouth twice daily. fluticasone (FLONASE) 50 mcg/actuation nasal spray Use 1 Morrison in each nostril once daily. carBAMazepine XR (TEGRETOL XR) 400 mg 12 hr tablet Take 400 mg by mouth q 12 HR. rOPINIRole (REQUIP) 2 mg tablet Take 2 mg by mouth twice daily. Takes 2 mg in the AM and 4 mg PM ARIPiprazole (ABILIFY) 30 mg tablet Take 30 mg by mouth once daily. albuterol HFA (PROVENTIL HFA, VENTOLIN HFA) 90 mcg/actuation inhaler inhale 2 puffs by mouth INTO THE LUNGS every 4 hours if needed wiwknmdpwwr-qvqxnliuy-wkihuvgt (TRELEGY ELLIPTA) 100-62.5-25 mcg Inhale 1 Puff as instructed once daily. atenolol (TENORMIN) 50 mg tablet Take 50 mg by mouth once daily. metroNIDAZOLE (FLAGYL) 500 mg tablet Take 1 tablet by mouth three times daily. Take 1 tablet at 6pm, 7pm, and 11pm, the evening prior to surgery. 3 tablet 0 neomycin 500 mg tablet Take 2 tablets by mouth as directed. Take 2 tablet at 6pm, 7pm, and 11pm theevening prior to surgery. 6 tablet 0 lactobacillus rhamnosus (CULTURELLE) 10 billion cell capsule Take 1 capsule by mouth once daily. 30capsule 0 No current facility-administered medications for this visit. ALLERGIES Allergen Reactions Risperidone Intolerance Breast discharge Social History Tobacco Use Smoking status: Never Smoker Smokeless tobacco: Never Used Substance Use Topics Alcohol use: Never Drug use: Never Medical History: No changes since last visit. REVIEW OF SYSTEMS: GENERAL: weight stable, no fevers. CARDIOVASCULAR: No chest pain, no edema RESPIRATORY: No dyspnea : neg ESL PROFESSOR: neg The remainder of the review of systems are negative. Reviewed with patient during visit today. PHYSICAL EXAMINATION: BP 133/87 Pulse 85 Ht 5' 4 (1.63m) Wt 183 lb (83.0kg) SpO2 100% BMI 31.40 kg/(m^2). GENERAL APPEARANCE: Well developed and well nourished. SKIN: Skin color, texture, turgor normal. No rashes or lesions. EYES: Conjunctiva normal without icterus. OROPHARYNX: lips, mucosa, and tongue normal, teeth and gums normal NECK: Supple, full range of motion, no lymphadenopathy, normal thyroid, no carotid bruits and no JVD LUNGS: Normal breath sounds, Clear to auscultation, No wheezes, No crackles. HEART:Normal PMI, Regular rate and rhythm, Normal heart sounds, S1 and S2 and No murmurs. NEURO: Alert and oriented in no acute distress. ABDOMEN: Normal bowel sounds, abdomen flat with no distention, Soft, non-tender, no hepatomegaly. no palpable masses, no abdominal bruits, no rebound and no rigidity. EXTREMITIES:Extremities normal, No deformities, No skin discoloration, No edema . Assessment Encounter Diagnosis ICD-10-CM 1. Gastroesophageal reflux disease, unspecified whether esophagitis present K21.9 Dexlansoprazole 60 mg CpDM 2. Chronic idiopathic constipation K59.04 Isra Masters DO 03/15/2022 documented in this encounterLake[facility]05-09-2022 Instructions* Patient Instructions* Urmila Alexander APRN.AUTOMOTIVE SERVICE TECHNICIAN - 03/14/2022 10:43 AM EDT PATIENT PREOPERATIVE INSTRUCTIONS Mary Obrien MD has scheduled you for your procedure at this surgery center: [facility]: [phone] --[id number] [address]. Please check in on the1st floor at registration desk 6. Please read below carefully for your personalized instructions. Dietary Restrictions: - Nothing to eat or drink after midnight except for a sip of water with approved medications. Medications: Unless instructed differently below, stay on all of your medications until your surgery. Meds as instructed by surgeon Approved medications to take the morning of surgery with a sip of water: Dexlansoprazole, Trintellix, Klonopin, Tegretol, Abilify, Requip, atenolol, Trelegy Ellipta, Albuterol inhaler If you start any new medications after today's visit, please contact the surgeon's office. Blood Thinning Medications: - Stop NSAIDS (Ibuprofen, Advil, Aleve, Motrin, Celebrex, Mobic, etc.) 7 days before surgery, as directed by your surgeon. - Stop Aspirin 7 days before surgery, as directed by your surgeon. - Stop Vitamin E, ALL multi-vitamins, herbals and dietary supplements 7 days before surgery. - You may take Tylenol (Acetaminophen) or any of your pain medications that do not contain aspirin or NSAIDS as needed. Important Reminders: - If you are prescribed inhalers for breathing, continue using them. - Candy, mints, and tobacco products are NOT permitted the morning of surgery. - Hearing aids, dentures and glasses may be worn the morning of surgery. - NO jewelry, body piercings, makeup, hairpins or contacts are to be worn the day of surgery. If you develop symptoms such as a fever, cold, or flu, or have other changes to your health within TWO DAYS of scheduled surgery or the morning of surgery, please contact the surgery center above. Personal Belongings: -Please have photo ID and insurance cards. -If you do not have a copy of advance directives on file with us, please bring a copy with you on the day of surgery. - Leave ALL valuables and money at home or with family members. For Outpatient Procedures: - YOU MUST HAVE A RESPONSIBLE LVN TAKE YOU HOME. A COLLECTION CLERK OR FLOWER STRIPPER CANNOT BE MADE A RESPONSIBLE LVN. - We recommend that a responsible person stays with you overnight to take care of you. - You cannot stay in a hotel alone after outpatient surgery. You will not be permitted to have yoursurgery, if you do not have someone to take care of you. Arrival Time for Surgery: - The Surgery Center or hospital where you are having surgery will call the afternoon before surgery (or Monday for Monday surgery) with a scheduled arrival time. - If you have not heard by 4 pm, please contact the surgery center above. Please be aware that emergency situations arise, which may delay or change your surgical time. If this happens, we will notify you as soon as possible and regret any inconvenience. If you already have an Advance Directive, please fax a copy to [phone] or email to for it to be added to your chart. If you do not have an Advance Directive, you can find the appropriate form and more information at [email or web address]. We recommend that youcomplete the Advance Directive form found on the website and bring it with you the day of your surgery. It can be witnessed and scanned into your chart that day. documented in this encounterLake[facility]05-09-2022 History and physical note * Urmila Alexander APRN.CNP - 03/14/2022 10:30 AM EDT Images from the original note were not included. HISTORY AND PHYSICAL EXAMINATION SERVICE DATE: 03/14/2022 SERVICE TIME: 11:03 AM PRIMARY CARE PHYSICIAN: Eliceo Willams DO REASON FOR VISIT: Mary Ludmila Leal is a 51 year old female who is scheduled for Procedure(s) with comments: LAPAROSCOPIC TOTAL COLECTOMY LITHOTOMY (N/A) LAP CLOSURE OF ENTEROSTOMY W/ RESECTION & ANASTOMOSIS (N/A) - ileorectal anastomosis, takedown of ileostomy at the request of Dr. Mary Obrien for consultation. My final recommendation will be communicated back to the requesting physician by way of shared medical record or letter. Subjective COVID-19 Immunization Status COVID-19 VACCINE (Series Information) Completed 11/24/2021 Imm Admin: COVID-19 vaccine, age 12+ yr ([employer]ION[employer] - [facility]) 05/11/2021 Imm Admin: COVID-19 vaccine, age 12+ yr ([facility]ER[facility]IONTE[facility] - [facility]) 04/20/2021 Imm Admin: COVID-19 vaccine, age 12+ yr ([facility]ER-[facility]IONTECH - [facility]) CHIEF COMPLAINT: reverse ileostomy HPI: Pt. presenting with history of obstructive constipation s/p laparoscopic proctopexy with diverting loop ileostomy, anterior & posterior colporrhaphy and sling 12/24/2021 that is recommended for laparoscopic total colectomy, ileorectal anastomosis and takedown of ileostomy. Pt. currently denies any pain or issues with ileostomy. REVIEW OF SYSTEMS: General: No weight loss, malaise or fevers. Neurological: No history of TIA's, stroke, WELL SITE DRILLING ENGINEER tumor, impaired sensorium, hemiplegia, paraplegia orquadraplegia. No neurological symptoms or problems. Respiratory: Positive for: asthma. Negative for: current cough, bronchodilator used daily for the last 3 months, dyspnea, pneumonia within 6 weeks, URI < 2 weeks and obstructive sleep apnea. Cardiovascular: Positive for: hyperlipidemia and hypertension Negative for: arrhythmia, CAD, chest pain, CHF, DVT/PE and murmur/valvular heart disease. GI: SEE HPI Positive for: GERD Negative for: abdominal pain, dysphagia, liver disease, nausea, pancreatitis and vomiting. : No history of dysuria, frequency or incontinence, stones or chronic kidney disease. No difficulty urinating, nocturia > 1 time per night or hematuria. 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 Endocrine: No history of diabetes. Has not taken steroids within the past 30 days. No history of endocrinological symptoms or problems. Hematology: No history of bleeding or clotting disorder. Patient is not taking anti-coagulation or platelet medications. No history of hematological symptoms or problems. Oncology: No history of CA metastasis, chemo within 30 days, or radiotherapy within 90 days. No history of oncological symptoms or problems. Psych: borderline personality Positive for: bipolar disorder. Musculoskeletal: Positive for: back pain (receives injections). Skin: Negative for lesions, rash and itching. PAST MEDICAL HISTORY Diagnosis Date Asthma as a child Bipolar 1 disorder (HCC) Gastroparesis History of laparoscopic-assisted vaginal hysterectomy 10/2015 for endometriosis HTN (hypertension) PTSD (post-traumatic stress disorder) PAST SURGICAL HISTORY Procedure Laterality Date COLONOSCOPY EGD 2019 with dilation PAST SURGICAL HISTORY OF left foot reconstruction PAST SURGICAL HISTORY OF cervical neck surgery PAST SURGICAL HISTORY OF Left ACL PAST SURGICAL HISTORY OF anal fissure PAST SURGICAL HISTORY OF Left CTR PAST SURGICAL HISTORY OF appendectomy PAST SURGICAL HISTORY OF bilat bunionectomy PAST SURGICAL HISTORY OF 12/24/2021 laparoscopic proctopexy with diverting loop ileostomy, anterior & posterior colporrhaphy and sling 12/24/2021 TONSILLECTOMY HX 02/11/2021 and septoplasty TONSILLECTOMY HX 07/2021 revision VAGINAL HYSTERECTOMY 2014 [facility] 10/2015 for endometriosis, has remaining both FAMILY HISTORY Problem Relation Age of Onset Hypertension Mother Dementia Mother Hypertension Father other (atrial fibrillation) Father Social History Tobacco Use Smoking status: Never Smoker Smokeless tobacco: Never Used Substance Use Topics Alcohol use: Never Drug use: Never Prior to Admission medications as of 03/14/22 1043 Medication Sig Last Dose Taking traZODone (DESYREL) 50 mg tablet Take 150 mg by mouth daily at bedtime. Yes atorvastatin (LIPITOR) 20 mg tablet Take 20 mg by mouth once daily. Yes nystatin (MYCOSTATIN) cream Apply 1 application to affected area twice daily. Taking Yes Dexlansoprazole 60 mg CpDM take 1 capsule by mouth before breakfast Taking Yes vortioxetine (TRINTELLIX) 10 mg tablet Take 10 mg by mouth once daily. Taking Yes clonazePAM (KLONOPIN) 1 mg tablet Take 0.5 mg by mouth twice daily. Taking Yes carBAMazepine XR (TEGRETOL XR) 400 mg 12 hr tablet Take 400 mg by mouth q 12 HR. Taking Yes rOPINIRole (REQUIP) 2 mg tablet Take 2 mg by mouth twice daily. Takes 2 mg in the AM and 4 mg PM Taking Yes ARIPiprazole (ABILIFY) 30 mg tablet Take 30 mg by mouth once daily. Taking Yes albuterol HFA (PROVENTIL HFA, VENTOLIN HFA) 90 mcg/actuation inhaler inhale 2 puffs by mouth INTO THE LUNGS every 4 hours if needed Taking Yes bvintttjfkz-tfljgcebj-rqpiapyy (TRELEGY ELLIPTA) 100-62.5-25 mcg Inhale 1 Puff as instructed once daily. Taking Yes atenolol (TENORMIN) 50 mg tablet Take 50 mg by mouth once daily. Taking Yes metroNIDAZOLE (FLAGYL) 500 mg tablet Take 1 tablet by mouth three times daily. Take 1 tablet at 6pm, 7pm, and 11pm, the evening prior to surgery. neomycin 500 mg tablet Take 2 tablets by mouth as directed. Take 2 tablet at 6pm, 7pm, and 11pm theevening prior to surgery. lactobacillus rhamnosus (CULTURELLE) 10 billion cell capsule Take 1 capsule by mouth once daily. fluticasone (FLONASE) 50 mcg/actuation nasal spray Use 1 Morrison in each nostril once daily. No medication comments found. ALLERGIES Allergen Reactions Risperidone Intolerance Breast discharge Objective PHYSICAL EXAM: General: alert and oriented and obese. Pertinent negatives noted - not distressed. oriented x 3 . Skin: normal color, no rash or lesions. HEENT: EOM intact, pupils equal round and pupils reactive to light. Pertinent negatives noted - no carotid bruit. Oropharynx clear. Neck Supple . Cardiovascular: regular rate and rhythm, normal S1 and S2, no rub, murmurs, or gallop. Respiratory: normal breath sounds, no wheezes or crackles. No chest wall deformity or tenderness. Abdomen: bowel sounds present and soft. Pertinent negatives noted - not tender. , except ileostomy-detailed deferred to surgeon. Extremities: no deformity, no edema or tenderness, no joint swelling or clubbing. Neurological: normal cognition and motor skills. Gait normal. No weakness or sensory deficit. PAIN ASSESSMENT: VITALS: BP 114/76 Pulse 74 Temp (Src) 97.2 (Temporal Artery) Resp 16 Ht 5' 4 (1.63m) Wt 183 lb (83.0kg) SpO2 98% BMI 31.40 kg/(m^2). Diagnostic tests reviewed for today's visit: Lab Value Units Date High Low HB 12.8 g/dL 03/14/2022 15.5 11.5 HB 11.6 g/dL 12/25/2021 15.5 11.5 HCT 37.6 % 03/14/2022 46.0 36.0 HCT 35.2 % 12/25/2021 46.0 36.0 WBC 6.77 k/uL 03/14/2022 11.00 3.70 WBC 5.96 k/uL 12/25/2021 11.00 3.70 PLT 385 k/uL 03/14/2022 400 150 PLT 271 k/uL 12/25/2021 400 150 NA 139 mmol/L 12/26/2021 148 132 K 4.0 mmol/L 12/26/2021 5.0 3.5 GLUC 71 mg/dL 12/26/2021 100 65 BUN 10 mg/dL 12/26/2021 25 8 CREAT 0.62 mg/dL 12/26/2021 1.40 0.70 PTSEC No results within date range. INR No results within date range. APTT No results within date range. ALT 40 U/L 10/15/2021 38 7 AST 35 U/L 10/15/2021 35 13 TBILI 0.2 mg/dL 10/15/2021 1.3 0.2 TSH No results within date range. Lab Value Units Date High Low HCGQT No results within date range. UHCG No results within date range. HCG, BODY* No results within date range. Lab Value Units Date High Low ABORHD O POSI* no uni* 12/16/2021 ABSCREEN NEG no uni* 12/16/2021 Type and Screen in process CON ABO completed 10/15/2021 Hemoglobin A1C (%) Date Value 06/10/2021 5.9 No results found for this or any previous visit (from the past 8760 hour(s)). No results found for this or any previous visit (from the past 57362 hour(s)). EKG: Assessment HTN (hypertension) Assessment: Managed with med Date: BP: 03/14/2022 114/76 Stable. Gastroparesis Assessment: Pt. denies, smart pill completed. Stable. GERD (gastroesophageal reflux disease) Assessment: Pt. reports symptoms controlled with medication Asthma Assessment: Controlled with inhalers; rare use of Albuterol inhaler Bipolar 1 disorder (HCC) Assessment: Pt. reports mood is stable with medication. Reports borderline personality Follows with psychiatry and counseling Obesity (BMI 30.0-34.9) Assessment: Body mass index is 31.41 kg/m . Weight reduction encouraged. METS: Climb a flight of stairs or walk up a hill (5.50 METs) DASI Score: 5.5; Patient denies any chest pain or undue shortness of breath with the above physicalactivity. Clinical Frailty Scale: 3. Well, with treated comorbid disease ASA Class: 3 ANESTHESIA FINDINGS: Intubation History: No history of difficult intubation. No abnormal airway history Significant Anesthesia Considerations: none Airway History: No history of difficult airway No abnormal airway history [id number] Score: Age: <65 Sex: Female Hypertension history: Yes Score: 2 I - PHYSICAL EVALUATION AIRWAY Tracheostomy tube not present Mallampati: II. TM distance: >3 FB. Neck ROM: full ROM without neurological symptoms. Mouth opening: adequate. Short neck: no. Thick neck: no DENTAL Dental findings: teeth intact. II - ANESTHESIA PLAN ASA Score: 3 Anesthetic Plan: general Prepared for Surgery: optimally prepared for surgery. Results CONSULTS: Patient does not require consults for optimization at this time The Following Tests/Procedures Have Been Initiated: Orders Placed This Encounter traZODone (DESYREL) 50 mg tablet Sig: Take 150 mg by mouth daily at bedtime. atorvastatin (LIPITOR) 20 mg tablet Sig: Take 20 mg by mouth once daily. Planned Anesthetic: general Labs ordered in Epic per Surgeon ( dated 02/09/2022) CON ABO completed 10/15/2021 Instructions Given to Patient: Instructions located in the after visit summary. Patient given verbal and written preop instructions and voices comprehension and compliance. SIGNATURE: Urmila Alexander APRN.CNP PATIENT NAME: Mary Leal DATE: March 14, 2022 TIME: 10:30 AM PAGER/CONTACT #: documented in this encounterLake[facility]04-25-[facility]22 Miscellaneous Notes* Telephone Encounter - Isra Masters DO - 02/28/2022 10:46 AM EDT Pt cannot take it twice a day as there is actually 2 doses of the med in one pill. * Telephone Encounter - Karthikeyan Morrissey RN - 02/28/2022 10:11 AM EDT Patient calling requesting script refill for Dexilant. She takes 60 mg once daily. She says it's nolonger working. She is asking if she can take it twice daily. MEREDITH = 06/2021. VIRTUAL appt placed ON HOLD for Monday, 03/02, at 0900 - routed to clerical pool to make it legit. Please advise. documented in this encounterLake[facility]04-15-2022 Instructions* Patient Instructions* Nelsy Chávez APRN.CNP - 02/18/2022 1:18 PM EDT Healing as expected from surgery. You have a pinpoint area of suture just under the vaginal epithelium surface that may need more time to fully heal. Please call the office if you would like to try vaginal estrogen cream or with any questions/concerns. documented in this encounterLake[facility]04-15-2022 History of Present illness Narrative* Nelsy Chávez APRN.CNP - 02/18/2022 10:00 AM EDT Female Pelvic Medicine & Reconstructive Surgery Follow-Up Mary Leal is a 51 year old female, who presents for a follow-up for pain with intercourse History since last visit: Patient states that she had intercourse for the first time since her surgery and partner noted something poking him during intercourse. She has not had intercourse since then which was about 10 days ago. Denies pain, bleeding, abnormal discharge. 02/08/2022:ASSESMENT: Mary Leal is a 51 year old female who is post-op; stable and doing well post-operative course uncomplicated PLAN: May resume normal activities however discussed may also have continued restrictions from CORS. May resume intercourse. Yeast infection of skin - Nystatin Rx Operative (urogyn) findings were reviewed today. Follow up prn; offered pt a 6 month Patient expressed understanding. Urinary Incontinence: no Voiding Dysfunction: no Urinary Frequency: no Urinary Urgency: no Prolapse Symptoms: no Defecatory Dysfunction: no Fecal Incontinence: no Abnormal Bleeding: no Pain: no Abnormal Vaginal Discharge: no ESL PROFESSOR HISTORY: Last pap: cannot remember; Last mammogram: She has never had a mammogram LMP: No LMP recorded. Patient has had a hysterectomy.; Menopause n/a: Menstrual history: NA; Deliveries: I have confirmed and edited as necessary, the PFSH obtained by others. Nelsy Chávez APRN.KWESI Garage Laborer offered: Patient declines. OBJECTIVE: There were no vitals taken for this visit. General: Well appearing, alert, in no acute distress, well-hydrated, well nourished. Abdomen: Abdomen soft, non-tender Pelvic: Ext. Genitalia: No lesions or other abnormalities Vagina: normal epithelium and good vaginal support. There is a pinpoint area of suture palpated just under vaginal epithelium on the anterior vaginal wall, ~2/3 past introitus. There is no suture or mesh exposure present with careful digital and speculum exam POP-Q: Prolapse Noted: No Impression: Mary Leal is a 51 year old female who is 8 weeks s/p prolapse repair and TVT sling. Plan: Reassurance to pt that she is healing as expected; discussed expectant management vs short course of vaginal estrogen cream to see if this helps. She is traveling to [place] to see her ailing father for two weeks and would like to wait for now to see if things resolve. She knows she can call the office if she changes her mind and would like to trial vaginal estrogen Nelsy Chávez APRN.KWESI documented in this encounterLake[facility]04-08-2022 History of Present illness Narrative* Flaca Bartholomew, PT - 02/11/2022 10:42 AM EDT Episode Visit Count: 4 Therapist That Will Oversee The Plan Of Care: La then transfer to Flaca Bartholomew Start of Care Date: 01/18/22 Onset Date: 12/24/21 Plan of Care Certification Date: 01/18/22 Next Certification Due Date: 03/19/22 Patient Identified by Name and Date of : Yes REHABILITATION AND SPORTS THERAPY PHYSICAL THERAPY TREATMENT NOTE ASSESSMENT: Mary Leal tolerated the session with no issues. She demonstrated improvements in overall lengthening habits, reduced pain and symptoms. Reports ready for surgery. PLAN FOR NEXT VISIT: F/U here PRN at this point, either prior to or after surgery for any ongoing issues or symtoms. SUBJECTIVE: Patient Reason for Visit: March 28 plans for removal of colon and ostomy reversal. No longer with pain symptoms. Urination is fine. Ready for surgery. Feels like she can lengthen. Pain: Pain Pain Level: 0 Post Treatment Pain Post Treatment Pain Level: 0 OBJECTIVE MEASURES WITH LEVEL OF FUNCTION: Pelvic Floor Muscle Assessment Consent for pelvic assessment/testing and treatment: Patient was educated regarding pelvic floor physical therapy assessment/treatment which may include pelvic floor and girdle muscle assessment externally or internally (vaginal or rectal approach).;Patient verbalized consent for the above treatment approaches today. Patient understands they have control of the treatment and an opportunity to stop treatment at any time. Power: 4 Endurance: 5 Recruitment of pelvic floor muscles: Coordinated Ability to Lengthen pelvic floor: Yes Relaxation Postcontraction: Yes Paradoxical Contraction: No Pelvic Floor Manual Assessment Pelvic Floor Tenderness/Hyperactivity: Tested Rectally in Tested Rectally in : Supine/hooklying Levator Ani: Bilateral (no pain, normal tone) Puborectalis: Bilateral (normal today) TREATMENT: Neuromuscular Re-Education: 1: See above 2: Lengthening education with rectal feedback 3: Discussed toileting after surgery - squatty potty as needed, avoid straining Skilled Intervention: Patient education as noted. Billing Neuromuscular Re-Education Treatment Minutes: 15 Total Treatment Time Minutes (timed and untimed codes) : 15 Flaca Bartholomew PT documented in this encounterLake[facility]04-05-2022 Nurse Note* Re Sierra MA - 02/08/2022 2:50 PM EDT What is the reason for your visit today? Established patient presents for follow up evaluation after Laparoscopic proctopexy and diverting loop ileostomy on 12/24/21 with concurrent Anterior colporrhaphy, Posterior colporrhaphy, Placement of retropubic midurethral sling, Perineorrhaphy by Dr. Wang. Who is your referring physician? Are you having poor oral intake? NO Have you had unintentional weight loss of 15 lbs/7 Kg in the last 3-6 months? NO Bowels: illeostomy Wound: Temperature: No Drains: No documented in this encounterLake[facility]04-05-2022 History of Present illness Narrative* Mary Obrien MD - 02/08/2022 2:40 PM EDT COLORECTAL SURGERY February 08, 2022 Mary Leal Chief Complaint: follow up History of Present Illness: Mary Leal is a 51 year old female presents to the office for a follow up evaluation after Laparoscopic proctopexy and diverting loop ileostomy on 12/24/21 with concurrent Anterior colporrhaphy, Posterior colporrhaphy, Placement of retropubic midurethral sling, Perineorrhaphy by Dr. Wang. States she feels amazing Good PO intake No nausea Ileostomy working well, no pouching issues She has been following with pelvic floor PT since shortly after surgery PAST MEDICAL HISTORY Diagnosis Date Asthma as a child Bipolar 1 disorder (HCC) Gastroparesis History of laparoscopic-assisted vaginal hysterectomy 10/2015 for endometriosis HTN (hypertension) PTSD (post-traumatic stress disorder) PAST SURGICAL HISTORY Procedure Laterality Date COLONOSCOPY EGD 2019 with dilation PAST SURGICAL HISTORY OF left foot reconstruction PAST SURGICAL HISTORY OF cervical neck surgery PAST SURGICAL HISTORY OF Left ACL PAST SURGICAL HISTORY OF anal fissure PAST SURGICAL HISTORY OF Left CTR PAST SURGICAL HISTORY OF appendectomy PAST SURGICAL HISTORY OF bilat bunionectomy TONSILLECTOMY HX 02/11/2021 and septoplasty TONSILLECTOMY HX 07/2021 revision VAGINAL HYSTERECTOMY 2014 LAV 10/2015 for endometriosis, has remaining both Current Outpatient Medications Medication Sig Dispense Refill nystatin (MYCOSTATIN) cream Apply 1 application to affected area twice daily. 30 g 0 Dexlansoprazole 60 mg CpDM take 1 capsule by mouth before breakfast 30 capsule 3 lactobacillus rhamnosus (CULTURELLE) 10 billion cell capsule Take 1 capsule by mouth once daily. 30capsule 0 vortioxetine (TRINTELLIX) 10 mg tablet Take 10 mg by mouth once daily. clonazePAM (KLONOPIN) 1 mg tablet Take 0.5 mg by mouth twice daily. fluticasone (FLONASE) 50 mcg/actuation nasal spray Use 1 Morrison in each nostril once daily. carBAMazepine XR (TEGRETOL XR) 400 mg 12 hr tablet Take 400 mg by mouth q 12 HR. rOPINIRole (REQUIP) 2 mg tablet Take 2 mg by mouth twice daily. Takes 2 mg in the AM and 4 mg PM ARIPiprazole (ABILIFY) 30 mg tablet Take 30 mg by mouth once daily. albuterol HFA (PROVENTIL HFA, VENTOLIN HFA) 90 mcg/actuation inhaler inhale 2 puffs by mouth INTO THE LUNGS every 4 hours if needed hknimgzraph-pqjolzkzg-bkxanveb (TRELEGY ELLIPTA) 100-62.5-25 mcg Inhale 1 Puff as instructed once daily. atenolol (TENORMIN) 50 mg tablet Take 50 mg by mouth once daily. metroNIDAZOLE (FLAGYL) 500 mg tablet Take 1 tablet by mouth three times daily. Take 1 tablet at 6pm, 7pm, and 11pm, the evening prior to surgery. 3 tablet 0 neomycin 500 mg tablet Take 2 tablets by mouth as directed. Take 2 tablet at 6pm, 7pm, and 11pm theevening prior to surgery. 6 tablet 0 MOTEGRITY 2 mg tab tablet take 1 tablet by mouth once daily 30 tablet 6 No current facility-administered medications for this visit. ALLERGIES Allergen Reactions Risperidone Intolerance Breast discharge FAMILY HISTORY Problem Relation Age of Onset Hypertension Mother Dementia Mother Hypertension Father other (atrial fibrillation) Father Social History Tobacco Use Smoking status: Never Smoker Smokeless tobacco: Never Used Substance Use Topics Alcohol use: Never Drug use: Never Physical Exam: BP 113/76 (BP Site: Right Arm, BP Position: Sitting, BP Cuff Size: Large Adult) Pulse 79 Ht 162.6 cm (5' 4 ) Wt 83 kg (183 lb) SpO2 97% BMI 31.41 kg/m General Appearance: Well appearing, alert, in no acute distress, well-hydrated, well nourished. Abdomen: soft ND NT. Incisions well healed no hernia Assessment Assessment and Plan: Mary Leal is a 51 year old female with outlet obstruction constipation, discordant findings re: colonic inertia, and POP with rectocele and internal rectal intussusception s/p laparoscopic proctopexy and diverting loop ileostomy on 12/24/21 with concurrent anterior colporrhaphy, posterior colporrhaphy, placement of retropubic midurethral sling, perineorrhaphy by Dr. Wang. Continue pelvic floor PT We discussed proceeding with TAC/OANH with the understanding that she may return to having constipation given underlying outlet obstruction. She understands and would like to proceed. We discussed that if she has return of symptoms after TAC/OANH, her only surgery option at that point would be a permanent end ileostomy. We discussed the risks and benefits of surgery including injury to other structures, bleeding, infection, anastomotic leak, return to the OR, ileus, as well as the possibility of medical complications of surgery including DVT/PE, PNA, IL, stroke, and . The patient understands these risks and is in agreement with proceeding. Medical Decision Making: Data Reviewed: Tests & Documents Reviewed/ordered: Review of prior notes from myself, OR, Dr. Wang Review of prior operative reports I have discussed Mary Leal's treatment plan and/or results with the patient. Mary Obrien MD Colorectal Surgery documented in this encounterLake[facility]04-05-2022 History of Present illness Narrative* Magali Mitchell APRN.AUTOMOTIVE SERVICE TECHNICIAN - 02/08/2022 11:04 AM EDT Female Pelvic Medicine & Reconstructive Surgery Post-Op Visit Mary Leal is a 51 year old female who presents for a 6 week post-op check s/p 12/24/21 Dr. Wang Anterior colporrhaphy Posterior colporrhaphy Placement of retropubic midurethral sling Perineorrhaphy Cystoscopy Dr. Obrien Laparoscopic Suture Rectopexy, Diverting Loop Ileostomy Post-op complications: no - Has a rash in the crease of her groin. Bleeding: yes normal for what she was told Pain: yes campy and sometimes shooting sharp pains If you had pain related to your prolapse before surgery, has your pain resolved? Yes Abnormal vaginal discharge: no [id number] Do you: Usually experience pressure in the lower abdomen? Yes, somewhat bothersome (2) from ostomy Usually experience heaviness or dullness in the pelvic area? No (0) Usually have a bulge or something falling out that you can see or feel in your vaginal area? No (0) Ever have to push on the vagina or around the rectum to have or complete a bowel movement? No (0) Usually experience a feeling of incomplete bladder emptying? No (0) Ever have to push up on a bulge in the vaginal area with your fingers to start or complete urination? No (0) Feel you need to strain too hard to have a bowel movement? No (0) Feel you have not completely emptied your bowels at the end of a bowel movement? No (0) Usually lose stool beyond your control if your stool is well formed? No (0) Usually lose stool beyond your control if your stool is loose? No (0) Usually lose gas from the rectum beyond your control? No (0) Usually have pain when you pass your stool? No (0) Experience a strong sense of urgency and have to machuca to the bathroom to have a bowel movement? No (0) Does part of your bowel ever pass through the rectum and bulge outside during or after a bowel movement? No (0) Usually experience frequent urination? No (0) Usually experience urine leakage associated with a feeling of urgency, that is, a strong sensation of needing to go to the bathroom? No (0) Usually experience urine leakage related to coughing, sneezing or laughing? Yes, not at all bothersome (1) Usually experience small amounts of urine leakage (that is, drops)? Yes, not at all bothersome (1) Only once with cough Usually experience difficulty emptying your bladder? No (0) Usually experience pain or discomfort in the lower abdomen or genital region? No (0) Overall, how satisfied were you with your postoperative pain medication? Dissatisfied (pain from ostomy) With regard to your expectations before surgery, did you have the amount of pain you expected, morepain, or less pain? About the amount of pain I expected Was the preoperative teaching you had about pain expectations helpful? No Were the discharge instructions you received about pain medications helpful? Yes Garage Laborer offered:Patient declines OBJECTIVE: BP 113/76 Pulse 74 Wt 183 lb (83.0kg) General: Well appearing, alert, in no acute distress, well-hydrated, well nourished. Abdomen: Abdomen soft, non-tender, LQ ostomy bag Pelvic: Ext. Genitalia, Slight erythema 3x1 right groin fold Vagina: Good vaginal support and Surgical incisions are well healed Cervix: Absent Urethra: Normal Bimanual: No tenderness, No masses Rectovaginal: Deferred ASSESMENT: Mary Leal is a 51 year old female who is post-op; stable and doing well post-operative course uncomplicated PLAN: May resume normal activities however discussed may also have continued restrictions from CORS. May resume intercourse. Yeast infection of skin - Nystatin Rx Operative (urogyn) findings were reviewed today. Follow up prn; offered pt a 6 month Patient expressed understanding. Magali Mitchell APRN.AUTOMOTIVE SERVICE TECHNICIAN documented in this encounterLakehealth [facility]03-29-2022 Miscellaneous Notes* Telephone Encounter - Ban Benton LPN - 02/01/2022 11:08 AM EDT [facility] 06-10-21 Pharmacy and Rx request verified. Please file if appropriate. Thank you Ban Benton LPN documented in this encounterLakehealth [facility] Center03-28-2022 NoteHNO ID: [id number] Author: Newton Woodward, PT Service: ? Author Type: Physical Therapist Type: Progress Notes Filed: 01/31/2022 1:23 PM Note Text: Episode Visit Count: 3 Therapist That Will Oversee The Plan Of Care: La then transfer to [facility] Start of Care Date: 01/18/22 Onset Date: 12/24/21 Plan of Care Certification Date: 01/18/22 Next Certification Due Date: 03/19/22 Patient Identified by Name and Date of : Yes REHABILITATION AND SPORTS THERAPY PHYSICAL THERAPY TREATMENT NOTE ASSESSMENT: Mary Leal tolerated the session with no issues. She demonstrated improvements in pelvic floor muscle coordination, energy levels, improved sleep, normal eating and no urinary issues. Surgical scars are healing well. No pain with light touch to pelvic floor muscles. She is diligent in practicing her exercises and pelvic floor muscle lengthening. Patient is doing well with muscle dynamics muscle dynamics - no straining, no breath holding, good lengthening with only a slight amount of muscle tension when she starts to lengthen ( no paradoxical puborectalis), then the muscle releases as she gently lengthens. There is every indication that patient will do well when she has her reversal and colon removed(current plan per patient). Patient sees her surgeons on February 08 to determine next steps The patient will continue to benefit from ongoing skilled physical therapy to progress toward set goals. PLAN FOR NEXT VISIT: Continue work on pelvic floor muscle dynamics/focus on lengthening for success of reversal surgery Transfer of Care Due To: Closer to Home;Specialty Service Patient transferring care to: [facility]- Flaca Bartholomew SUBJECTIVE: Patient Reason for Visit: lack of PFM coordination. Doing well. Sleeping well and eating well/ normally. No problems with urination. Just gets suprapubic cramping with pressure if too active/ walks too much. Pain: Pain Pain Level: 0 (only if I overdue it) Pain Location: Suprapubic Description: Cramping Frequency: Intermittent Post Treatment Pain Post Treatment Pain Level: 0 OBJECTIVE MEASURES WITH LEVEL OF FUNCTION: Pelvic Floor Urinary/Bowel History : Urinary History strains to void: No Incomplete emptying: No Pelvic Floor Muscle Assessment Consent for pelvic assessment/testing and treatment: Patient was educated regarding pelvic floor physical therapy assessment/treatment which may include pelvic floor and girdle muscle assessment externally or internally (vaginal or rectal approach).;Patient verbalized consent for the above treatment approaches today. Patient understands they have control of the treatment and an opportunity to stop treatment at any time. Discharge Appearance: no discharge/ no odor. Normal skin color Pelvic Floor Muscle Assessment: PERFECT;Muscle Dynamics Power: 4+ Endurance: 5 Reps: 10 Fast Reps: 10 Recruitment of pelvic floor muscles: Coordinated Range of Motion: Normal Ability to Lengthen pelvic floor: Yes Relaxation Postcontraction: Yes Paradoxical Contraction: No Diaphragmatic Breathing : Good Pelvic Floor Manual Assessment Scar Mobility: Abdominal scars are healing well Pelvic Floor Tenderness/Hyperactivity: Tested Rectally in;Tested Vaginally in Tested Rectally in : Sidelying Levator Ani: Bilateral (normal muscle activity. no pain) Tested Vaginally in : Supine/hooklying Levator Ani: Bilateral (normal muscle activity. no pain with light touch.) Pelvic Region Sensation: Grossly Intact TREATMENT: Neuromuscular Re-Education: Educated patient in full relaxation of pelvic floor muscles with gentle lengthening to facilitate relaxation and complete bowel emptying after her reversal surgery. Educated using verbal and tactile feedback during internal pelvic floor muscle examination for improved pelvic floor muscle dynamics including coordinated contraction, relaxation and lengthening. Vaginal approach, then side lying rectal approach to pelvic floor muscles. Light touch so far due to recent surgery. Skilled Intervention: Patient education as noted. Home Exercise Program Assigned: Current Home Program: work on PFM lengthening in sitting. Awareness of any PFM clenching patterns. Practice diaphragmatic breathing. Pelvic floor muscle contractions with 5-second holds 5-second release 10 reps. Up to 3 times a day Billing Neuromuscular Re-Education Treatment Minutes: 35 Total Treatment Time Minutes (timed and untimed codes) : 40 Newton Haile Crissy PT, [facility]03-28-2022 History of Present illness Narrative* Newton Woodward, PT - 01/31/2022 10:42 AM EDT Episode Visit Count: 3 Therapist That Will Oversee The Plan Of Care: La then transfer to [facility] Start of Care Date: 01/18/22 Onset Date: 12/24/21 Plan of Care Certification Date: 01/18/22 Next Certification Due Date: 03/19/22 Patient Identified by Name and Date of : Yes REHABILITATION AND SPORTS THERAPY PHYSICAL THERAPY TREATMENT NOTE ASSESSMENT: Mary Leal tolerated the session with no issues. She demonstrated improvements in pelvic floor muscle coordination, energy levels, improved sleep, normal eating and no urinary issues. Surgical scars are healing well. No pain with light touch to pelvic floor muscles. She is diligentin practicing her exercises and pelvic floor muscle lengthening. Patient is doing well with muscle dynamics muscle dynamics - no straining, no breath holding, good lengthening with only a slight amount of muscle tension when she starts to lengthen ( no paradoxical puborectalis), then the muscle releases as she gently lengthens. There is every indication that patient will do well when she has her reversal and colon removed(current plan per patient). Patient sees her surgeons on February 08 to determine next steps The patient will continue to benefit from ongoing skilled physical therapy to progress toward set goals. PLAN FOR NEXT VISIT: Continue work on pelvic floor muscle dynamics/focus on lengthening for success of reversal surgery Transfer of Care Due To: Closer to Home;Specialty Service Patient transferring care to: [facility] SUBJECTIVE: Patient Reason for Visit: lack of PFM coordination. Doing well. Sleeping well and eating well/ normally. No problems with urination. Just gets suprapubic cramping with pressure if too active/ walks too much. Pain: Pain Pain Level: 0 (only if I overdue it) Pain Location: Suprapubic Description: Cramping Frequency: Intermittent Post Treatment Pain Post Treatment Pain Level: 0 OBJECTIVE MEASURES WITH LEVEL OF FUNCTION: Pelvic Floor Urinary/Bowel History : Urinary History strains to void: No Incomplete emptying: No Pelvic Floor Muscle Assessment Consent for pelvic assessment/testing and treatment: Patient was educated regarding pelvic floor physical therapy assessment/treatment which may include pelvic floor and girdle muscle assessment externally or internally (vaginal or rectal approach).;Patient verbalized consent for the above treatment approaches today. Patient understands they have control of the treatment and an opportunity to stop treatment at any time. Discharge Appearance: no discharge/ no odor. Normal skin color Pelvic Floor Muscle Assessment: PERFECT;Muscle Dynamics Power: 4+ Endurance: 5 Reps: 10 Fast Reps: 10 Recruitment of pelvic floor muscles: Coordinated Range of Motion: Normal Ability to Lengthen pelvic floor: Yes Relaxation Postcontraction: Yes Paradoxical Contraction: No Diaphragmatic Breathing : Good Pelvic Floor Manual Assessment Scar Mobility: Abdominal scars are healing well Pelvic Floor Tenderness/Hyperactivity: Tested Rectally in;Tested Vaginally in Tested Rectally in : Sidelying Levator Ani: Bilateral (normal muscle activity. no pain) Tested Vaginally in : Supine/hooklying Levator Ani: Bilateral (normal muscle activity. no pain with light touch.) Pelvic Region Sensation: Grossly Intact TREATMENT: Neuromuscular Re-Education: Educated patient in full relaxation of pelvic floor muscles with gentle lengthening to facilitate relaxation and complete bowel emptying after her reversal surgery. Educated using verbal and tactile feedback during internal pelvic floor muscle examination for improved pelvic floor muscle dynamics including coordinated contraction, relaxation and lengthening. Vaginal approach, then side lying rectal approach to pelvic floor muscles. Light touch so far due to recent surgery. Skilled Intervention: Patient education as noted. Home Exercise Program Assigned: Current Home Program: work on PFM lengthening in sitting. Awareness of any PFM clenching patterns. Practice diaphragmatic breathing. Pelvic floor muscle contractions with 5-second holds 5-second release 10 reps. Up to 3 times a day Billing Neuromuscular Re-Education Treatment Minutes: 35 Total Treatment Time Minutes (timed and untimed codes) : 40 Newtno Woodward PT, [facility] NoteHNO ID: [id number] Author: Newton Woodward PT Service: ? Author Type: Physical Therapist Type: Progress Notes Filed: 01/24/2022 1:23 PM Note Text: Episode Visit Count: 2 Therapist That Will Oversee The Plan Of Care: La then transfer to [facility] Start of Care Date: 01/18/22 Onset Date: 12/24/21 Plan of Care Certification Date: 01/18/22 Next Certification Due Date: 03/19/22 Patient Identified by Name and Date of : Yes REHABILITATION AND SPORTS THERAPY PHYSICAL THERAPY TREATMENT NOTE ASSESSMENT: Mary Leal tolerated the session with no issues. She demonstrated improvements in pelvic floor muscle coordination and strength. Patient did very well with lengthening today after just 1 correction when she was bearing down too hard to lengthen. the patient will continue to benefit from ongoing skilled physical therapy to progress toward set goals. PLAN FOR NEXT VISIT: Continue to work on pelvic floor muscle dynamics; biofeedback for work on coordination SUBJECTIVE: Patient Reason for Visit: lack of PFM coordination. I'm doing all the exercises. I feel good. Just get tired easily. I'm sleeping in bed now. Pain: Pain Pain Level: (discomfort - always worse with walking) Pain Location: Abdomen Description: Pressure;Cramping Frequency: Continuous Post Treatment Pain Post Treatment Pain Level: 0 OBJECTIVE MEASURES WITH LEVEL OF FUNCTION: Pelvic Floor Incomplete emptying: Sometimes (Better. Leans to left and this helps) Nocturia (times per night): 1 (and empties bag) Water : 1 Juice : 3 Pelvic Floor Muscle Assessment Consent for pelvic assessment/testing and treatment: Patient was educated regarding pelvic floor physical therapy assessment/treatment which may include pelvic floor and girdle muscle assessment externally or internally (vaginal or rectal approach).;Patient verbalized consent for the above treatment approaches today. Patient understands they have control of the treatment and an opportunity to stop treatment at any time. Appearance: Discharge Discharge Appearance: small amount of white discharge. No odor no itching. no redness Pelvic Floor Muscle Assessment: PERFECT;Muscle Dynamics;Pelvic Floor Muscle EMG Power: 4+ Endurance: 10 Contracton Pressure: Strong squeeze, full circumference of fingers compressed Duration of Contraction: >3 seconds Recruitment of pelvic floor muscles: Coordinated Range of Motion: Normal Ability to Lengthen pelvic floor: Yes Relaxation Postcontraction: Yes Paradoxical Contraction: No (improved this week) Pelvic Floor Muscle EMG: Surface Rest tone (uV): 1.6 Flick strength (uV): 22 10 sec hold strength (uV): 16.7 Recovery (sec): 1 (Very good release) Lengthening (uV): 1 (reduced muscle activity when lengthening) Pelvic Floor Muscle EMG Comments: Patient did very well today with proper lengthening technique after verbal and tactile cueing. Diaphragmatic Breathing : Good Pelvic Floor Manual Assessment Pelvic Floor Tenderness/Hyperactivity: Tested Rectally in;Tested Vaginally in Tested Rectally in : Sidelying Levator Ani: Bilateral (no hyperactivity. no pain) Tested Vaginally in : Supine/hooklying Levator Ani: Bilateral (Tender. Mild hyperactivity. Used very gentle pressure to palpate.) Pelvic Region Sensation: Grossly Intact Check of surgical scar sites. Well-healing surgical scar with good mobility TREATMENT: Neuromuscular Re-Education: Focus on pelvic floor muscle dynamics/appropriate lengthening today Educated patient in diaphragmatic breathing with coordinated pelvic floor muscle movement, to facilitate relaxation and reduction in pelvic floor muscle activity -to assist with complete bladder or bowel emptying. Educated using verbal and tactile feedback during internal pelvic floor muscle examination for improved pelvic floor muscle dynamics including coordinated contraction, relaxation and lengthening. Today used sEMG to perianal area to facilitate proper lengthening of pelvic floor. See above objective measures for microvolts noted on biofeedback MR 20 unit. Skilled Intervention: Patient education as noted. Home Exercise Program Assigned: Current Home Program: work on PFM lengthening in sitting. Awareness of any PFM clenching patterns. Practice diaphragmatic breathing Billing Neuromuscular Re-Education Treatment Minutes: 40 Total Treatment Time Minutes (timed and untimed codes) : 45 Newton Woodward PT, [facility]03-15-2022 NoteHNO ID: [id number] Author: Jessi Isaacs PT Service: ? Author Type: Physical Therapist Type: Progress Notes Filed: 01/18/2022 1:56 PM Note Text: Episode Visit Count: 1 Therapist That Will Oversee The Plan Of Care: La then transfer to [facility] Start of Care Date: 01/18/22 Onset Date: 12/24/21 Plan of Care Certification Date: 01/18/22 Next Certification Due Date: 03/19/22 Patient Identified by Name and Date of : Yes REHABILITATION AND SPORTS THERAPY PHYSICAL THERAPY EVALUATION PLAN OF CARE: Assessment: Mary Leal is a 51 year old female who presents to physical therapy with a chief complaint of inability to control pelvic floor muscles. Wants to get a reversal of her ileostomy. Prior to surgery had urinary and fecal incontinence and severe constipation with straining and inability to empty. Examination revealed moderate contraction of PFM with difficulty lengthening. She had improved coordination by the end of the session but initially had trouble lengthening. She was tender to palpation both rectally and vaginally Contributing factors include long history of straining with constipation and history of 4 vaginal deliveries. This patient will benefit from skilled PT services to address deficits noted above and improve daily function for improved independence with both ADLs and IADLs. Goals for Episode of Care: created on 01/18/22 through 03/19/22 Incontinence: Patient to demonstrate independence with HEP Patient demonstrates ability to perform diaphragmatic breathing / relaxation Patient reports increased ability to fully empty bladder Patient displays proper technique for bearing down without use of accessory muscles Patient displays improved muscle dynamics of pelvic floor including ability to lengthen muscles Patient Goals: Want to be able to do a reversal and have regular BM. Planned Interventions, Frequency, and Duration: Current Frequency: 1x/week Duration: 8 weeks Total Number of Visits Planned: 8 Planned Treatment Interventions: Therapeutic exercise (20078);Neuromuscular re-education (48458);Manual therapy (53201);Therapeutic activities (94734);Self-intermediate management (35535);Patient/Family/Caregiver Education PLAN FOR NEXT VISIT: PFM dynamics; biofeedback Patient demonstrates good understanding of plan of care and treatment. The above goals and plan of care were discussed and agreed upon by patient/family. Transfer of Care Due To: Closer to Home (patient to transfer in February 2022) Patient transferring care to: [facility] SUBJECTIVE: Mary Leal is a 51 year old female seen today for Laparoscopic proctopexy and diverting loop ileostomy on 12/24/21 with concurrent Anterior olporrhaphy, Posterior colporrhaphy, Placement of retropubic midurethral sling, Perineorrhaphy. Feels more soreness than pain. Walking uncomfortable. Sitting in a recliner is more tolerable- this is what she is sleeping in as well. Prior to surgery she had really bad constipation. Had to take medication for 20 years in order to have a BM. Sick and bad quality of life. She had to strain significantly. Did pelvic floor PT for 5 weeks before but no significant changes. Goal is reversal of ileostomy. Since surgery it feels weird to urinate. She has to lean to the L to empty. Hard to empty all the way. Still feeling some pressure and heaviness. Patient empties her bag 5-6x per day. Patient Goals: Want to be able to do a reversal and have regular BM. Functional Limitations: compromised bladder function;compromised bowel function;altered sexual function Prior Level of Function: Independent without limitations Relevant History Past Relevant Medical Conditions: Asthma;Covid;Hypertension Employment: (Not working) Home Environment Patient Lives With: Family Intake Information: Prescription present Previous Treatment: Pelvic Floor Physical Therapy? Falls Interview: No positive findings with falls interview Pain: Pain Pain Level: 7 Pain Location: (Lower abdomen) Description: Pressure Frequency: Continuous Post Treatment Pain Post Treatment Symptoms: Patient did not quantify at end of session PROMIS Scales Higher is Better 10/13/2021 12/14/2021 01/17/2022 Phys Func - Score - - 26 (severe dysfunction) Phys Func - Percentile - - 1 % Social Roles - Score - - 31 (moderate dysfunction) Social Role - Percentile - - 3 % GH Physical - Score 29.6 (Poor) 32.4 (Poor) - GH Physical - Percentile 2 % 4 % - GH Mental - Score 43.5 (Good) 36.3 (Fair) - GH Mental - Percentile 26 % 9 % - Self-Eff Symptom - Score - - 34 (Low) Self-Eff Symptom - Percentile - - 5 % T-scores: mean of general population = 50. 5 points is clinically meaningfully difference Percentiles provide an indication of how the patient's score ranks in relation to the general population. Higher percentile rankings indicate better function/quality of life. 50 (more content not included)...[facility] [id number] NoteHNO ID: [id number] Author: Moni Munguia RN Service: Care Management Author Type: Registered Nurse Type: Care Mgt Progress Note Filed: 12/27/2021 4:17 PM Note Text: CARE MANAGEMENT DISCHARGE NOTE SERVICE DATE: 12/27/2021 SERVICE TIME: 4:14 PM LOS: 3 days Admission Date: 12/24/2021 DISCHARGE ARRANGEMENT (list agency and phone number) Discharge Arrangement: Home with Home Health Provider Name: [address] CAREGIVER ASSESSMENT: HANDOFF COMMUNICATION: Handoff to: Primary Care Physician Primary Care Physician Name/Phone: Eliceo Willams Jr [phone] TRANSPORTATION ARRANGEMENTS: Transportation Arrangements: N/A The Pt is accepted by [address] for new ostomy care. The SOC will be within 24 to 48 hrs. The pt will be contacted directly with the SOC. The Pt verbalized agreement with this dc plan. SIGNATURE: Moni Munguia RN PATIENT NAME: Mary Leal DATE: December 27, 2021 TIME: 4:14 PM PAGER/CONTACT #: [phone] [id number] NoteHNO ID: [id number] Author: Parish Celeste DO Service: Colorectal Author Type: Resident Type: Progress Notes Filed: 12/27/2021 8:09 AM Note Text: GENERAL SURGERY PROGRESS NOTE NAME: Mary Leal December 27, 2021 8:03 AM ASSESSMENT AND PLAN: Mary Leal is a 51 year old female with pelvic organ prolapse and chronic constipation, likely slow transit but with possible component of pelvic outlet obstruction and with discordant testing. ? Patient underwent laparoscopic protopexy on 12/24/21 surgery was uneventful. Post-operative course has been uncomplicated. ? - GIS - HLIV - Ostomy care and teaching - Pain and nausea control -> d/c NEGATIVE DEVELOPER - D/c entereg - Culturelle - Continue home meds - IS, OOB/Ambulate - Wean O2 - DVT prophylaxis - Potential discharge home later today pending O2 requirement and ostomy care Discussed with Dr. Obrien SUBJECTIVE: No acute issues overnight On NC Ostomy with 350 cc output Pain controlled Tolerating diet OBJECTIVE: BP 136/81 Pulse 73 Temp 36.7 ?C (98.1 ?F) (Oral) Resp 18 Ht 162.6 cm (5' 4.02 ) Wt 82.1 kg (181 lb) SpO2 93% BMI 31.05 kg/m? GENERAL: alert, NAD LUNGS: breathing comfortably on NC ABDOMEN: soft, appropriately tender, not distended. Incisions c/d/i. Ostomy pink and viable, +stool in bag. EXTREMITIES: well perfused and warm Date 12/26/21 0700 - 12/27/21 0659 12/27/21 0700 - 12/28/21 0659 Shift 2528-6835 6380-2616 7763-3180 24 Hour Total 6332-4640 4254-6259 2415-2324 24 Hour Total INTAKE PO 60 60 PO 60 60 IV 2099 2100 Volume (mL) (lactated ringers iv infusion) 2099 2099 Shift Total 2160 2160 OUTPUT Urine 0693 926 2935 2300 200 200 Void (ml) 300 1000 1300 200 200 Output ( Indwelling Urinary Catheter 12/24/21 Call 16 Fr) 1000 1000 Emesis 0 0 Emesis (ml) 0 0 Ostomy 250 125 375 Ileostomy 1 250 125 375 # of BMs Number of BMs 0 x 0 x Shift Total 9570 310 6287 2675 200 200 Weight (kg) 82.1 82.1 82.1 82.1 82.1 82.1 82.1 82.1 Recent Labs 12/26/21 0755 12/25/21 0606 WBC -- 5.96 HB -- 11.6 HCT -- 35.2* PLT -- 271 NA 139 141 K 4.0 4.0 CHLOR 102 104 CO2 28 28 CREAT 0.62* 0.72 BUN 10 12 GLUC 71 91 CA 8.5 8.5 Parish Celeste DO General Surgery, PGY-4 [phone] After 6 pm and on the weekends please page [phone] 12-26-2021 NoteHNO ID: [id number] Author: Jenifer Ayala MD Service: Colorectal Author Type: Fellow Type: Progress Notes Filed: 12/26/2021 12:13 PM Note Text: GENERAL SURGERY PROGRESS NOTE Name: Mary Leal 12/26/2021 12:11 PM Interval Events: Patient doing well post-operatively. No acute events overnight. Tolerating CLD diet without nausea or vomiting. Stoma productive of bilious fluid + gas Pain well controlled with NEGATIVE DEVELOPER + oral pain medication (feels most relief from po oxycodone). Assessment and Plan: 51 year old female with pelvic organ prolapse and chronic constipation, likely slow transit but with possible component of pelvic outlet obstruction and with discordant testing. Patient underwent laparoscopic protopexy on 12/24/21 surgery was uneventful. Post-operative course has been uncompliacted. Pain control- Tylenol Gabapentin Toradol NEGATIVE DEVELOPER: Dilaudid, tegretol, klonopin, requip, trintellix, oxycodone Cardiac- Vitals: Hemodynamically stable, Home meds: atenolol Respiratory- Encourage incentive spirometry, wean supplemental oxygen as able, asmanex GI- Advanced to GIS today. Antiemetic available, entereg, protonix Drains- NA FLUIDS- IV fluids at 75 ml/h Lactated Ringers Renal- adequate UOP, Call in place, void trial today Heme- no indication for transfusion at this time ID- no indication for antibiotics at this time Endo: NA Wound- Wound dressed with glue. Activity- OOB ambulating TID, OOB to chair TID Prophylaxis- SCD and lovenox Dispo: Continue on RNF Jenifer Ayala MD Colorectal Surgery Fellow For any questions or concerns page [facility] [phone] Objective Physical exam: BP 117/66 Pulse 77 Temp 36.6 ?C (97.9 ?F) (Oral) Resp 12 Ht 162.6 cm (5' 4.02 ) Wt 82.1 kg (181 lb) SpO2 98% BMI 31.05 kg/m? General:Alert, Oriented x 3 and No acute distress Respiratory: Negative for SOB/ALLISON, cough or wheezing. on RA Abdomen: soft non-distended appropriately-tender, Incisions C/D/I, ostomy in place, pink viable productive of bilious fluid + gas Date 12/25/21 07 - 12/26/21 0659 12/26/21 07 - 12/27/21 0659 Shift 9311-9566 8028-8871 9008-1384 24 Hour Total 3120-7996 4559-9390 7207-5171 24 Hour Total INTAKE PO 60 60 PO 60 60 IV 213 668 881 Volume (mL) (lactated ringers iv infusion) 213 668 881 Shift Total 273 668 941 OUTPUT Urine 134 533 2051 1000 Void (ml) 0 0 Output ( Indwelling Urinary Catheter 12/24/21 Call 16 Fr) 063 272 5446 1000 Emesis 0 0 Emesis (ml) 0 0 Ostomy 100 100 Ileostomy 1 100 100 # of BMs Number of BMs 0 x 0 x Shift Total 706 900 8462 1000 Weight (kg) 82.1 82.1 82.1 82.1 82.1 82.1 82.1 82.1 Labs CBC Recent Labs 12/25/21 0606 10/15/21 1021 WBC 5.96 5.45 HB 11.6 13.2 HCT 35.2* 38.1 PLT 271 358 BMP Recent Labs 12/26/21 0755 12/25/21 0606 10/15/21 1021 NA 139 141 140 K 4.0 4.0 4.2 CHLOR 102 104 103 CO2 28 28 26 BUN 10 12 11 CREAT 0.62* 0.72 0.68 GLUC 71 91 95 CA 8.5 8.5 10.0 LFT's Recent Labs 10/15/21 1021 TPROT 6.8 ALB 4.5 ALT 40* AST 35 ALKPHOS 112 TBILI 0.2 Active Hospital Problems Diagnosis Date Noted - Pelvic floor dysfunction [facility]/24/2021[id number] NoteHNO ID: [id number] Author: Sonido Owen MD Service: Colorectal Author Type: Resident Type: Progress Notes Filed: 12/25/2021 9:31 AM Note Text: GENERAL SURGERY PROGRESS NOTE Name: Mary Leal 12/25/2021 9:28 AM Interval Events: Patient underwent surgery yesterday. No acute events overnight. Tolerating CLD diet without nausea or vomiting. Reports (-) BM (-) Flatus UOP 1 L Pain is well controlled. Assessment and Plan: 51 year old female with pelvic organ prolapse and chronic constipation, likely slow transit but with possible component of pelvic outlet obstruction and with discordant testing. Patient underwent laparoscopic protopexy on 12/24/21 surgery was uneventful. Post-operative course has been uncompliacted. Pain control- Tylenol Gabapentin Toradol NEGATIVE DEVELOPER: Dilaudid, tegretol, klonopin, requip, trintellix Cardiac- Vitals: Hemodynamically stable, Home meds: atenolol Respiratory- Encourage incentive spirometry, wean supplemental oxygen as able, asmanex GI- DIET LIQUID, possible GIS in PM. Antiemetic available, entereg, protonix Drains- NA FLUIDS- IV fluids at 75 ml/h Lactated Ringers Renal- adequate UOP, Call in place, void trial tomorrow Heme- no indication for transfusion at this time ID- no indication for antibiotics at this time Endo: NA Wound- Keep dressings in place Activity- OOB ambulating TID, OOB to chair TID Prophylaxis- SCD and lovenox Dispo: Continue on RNF Sonido Owen MD General Surgery PGY 2 Pg [phone] For any questions or concerns page [facility] [phone] Objective Physical exam: BP 111/61 Pulse 86 Temp 37.1 ?C (98.7 ?F) (Axillary) Resp 18 Ht 162.6 cm (5' 4.02 ) Wt 82.1 kg (181 lb) SpO2 93% BMI 31.05 kg/m? General:Alert, Oriented x 3 and No acute distress Respiratory: Negative for SOB/ALLISON, cough or wheezing. on RA Abdomen: soft non-distended appropriately-tender, Incisions C/D/I, ostomy in place, pink viable Date 12/24/21699 - 12/25/2159 12/25/21 07 - 12/26/21 0659 Shift 0384-0706 2818-5402 1623-3884 24 Hour Total 5310-1768 7479-4384 4500-2701 24 Hour Total INTAKE PO 240 120 360 PO 240 120 360 IV 3100 3100 Volume (mL) (lactated ringers iv infusion) 1800 1800 Volume (mL) (lactated ringers iv infusion) 1300 1300 Shift Total 3100 505 147 5519 OUTPUT Urine 200 624 512 9368 OR Urine Output 200 200 Output ( Indwelling Urinary Catheter 12/24/21 Call 16 Fr) 300 500 800 Emesis 0 0 0 Emesis (ml) 0 0 0 Ostomy 0 0 0 Ileostomy 1 0 0 0 # of BMs Number of BMs 0 x 0 x 0 x Blood 50 50 Estimated Blood loss 50 50 Shift Total 250 833 762 2881 Weight (kg) 82.1 82.1 82.1 82.1 82.1 82.1 82.1 Labs CBC Recent Labs 10/15/21 1021 WBC 5.45 HB 13.2 HCT 38.1 PLT 358 BMP Recent Labs 10/15/21 1021 NA 140 K 4.2 CHLOR 103 CO2 26 BUN 11 CREAT 0.68 GLUC 95 CA 10.0 LFT's Recent Labs 10/15/21 1021 TPROT 6.8 ALB 4.5 ALT 40* AST 35 ALKPHOS 112 TBILI 0.2 Active Hospital Problems Diagnosis Date Noted - Pelvic floor dysfunction [facility]2021[id number] NoteHNO ID: [id number] Author: Carmen Stanley APRN.ACCOUNT REVIEW SPECIALIST Service: Anesthesiology Author Type: Nurse Livestock Counter Type: Anesthesia Procedure Notes Filed: 12/24/2021 8:44 AM Note Text: ANESTHESIOLOGY PROCEDURE NOTE PIV General Information Procedure Start Time/Medication Administration: 12/24/2021 8:22 AM Patient Location: OR Staffing Anesthesiologist: Chayito Ojeda MD Performed by: anesthesiologist Preparation Sterility Preparation: hand hygiene performed prior to procedure Site Prep: chlorhexidine Procedure Details Indication: need for IV access Needle Size/Type: 18 gauge angiocath Orientation: Left Location: Hand Imaging Guidance Used: No SIGNATURE: Carmen Stanley APRN.CRNA PATIENT NAME: Mary Leal DATE: December 24, 2021 TIME: 8:44 AM CSN: [id number] ID: [id number] Author: Carmen Stanley APRN.CRNA Service: Anesthesiology Author Type: Nurse Livestock Counter Type: Anesthesia Procedure Notes Filed: 12/24/2021 8:44 AM Note Text: ANESTHESIOLOGY PROCEDURE NOTE Airway General Information Procedure Start Time/Medication Administration: 12/24/2021 8:22 AM Patient location during procedure: OR 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, 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 Staffing Anesthesiologist: Chayito Ojeda MD ACCOUNT REVIEW SPECIALIST: Carmen Stanley APRN.ACCOUNT REVIEW SPECIALIST Performed by: ACCOUNT REVIEW SPECIALIST and anesthesiologist Indications and Patient Condition Preoxygenated: yes Difficult Mask: No Indications for airway management: anesthesia anesthesia circuit Method: asleep Final Airway Details Final airway type: endotracheal airway Final Endotracheal Airway: ETT Cuffed: yes Successful intubation technique: direct laryngoscopy Endotracheal tube insertion site: oral Blade: Dilia Blade size: #4 ETT size (mm): 7.0 Measured from: lips Measurement (cm): 21 Placement verified by: chest auscultation and capnometry Cormack-Lehane Classification: grade I - full view of glottis Number of attempts at approach: 1 Airway not difficult SIGNATURE: Carmen Stanley APRN.CRNA PATIENT NAME: Mary Leal DATE: December 24, 2021 TIME: 8:43 AM CSN: [id number] Evaluation note* Encounter Date Diagnosis Assessment Notes Treatment Notes Treatment Clinical Notes Oct, Other spondylosis with radiculopathy, lumbar region (ICD-10 - M47.26) Oct, Lumbosacral spondylosis without myelopathy (ICD-10 - M47.817) Patients primary complaint today continues to be primarily low lumbar pain. Unfortunately recent medial branch blocks did not provide significant relief. We discussed the possible benefit of a lumbar epidural however patient would like to revisit this option after her upcoming surgery. In the meantime, we will manage the patients pain the best we can with medication. Patient has a continued need for Oxycodone/ Acetaminophen 5-325 up to twice daily as needed. OARRS was processed and reviewed, no discrepencies. This medication was refilled today. We will follow up with the patient in one month, sooner if needed. Anatomy of spine discussed in detail with patient in regards to patients condition. Oct, Other chronic pain (ICD-10 - G89.29) Oct, Other Above note writ ten by Lupillo Amezquita MA, Machine Repairer. Edited and approved by Dr. Annette Harris MD. [employer] Other 11-01-2021 Evaluation note* Encounter Date Diagnosis Assessment Notes Treatment Notes Treatment Clinical Notes Sep, Other spondylosis with radiculopathy, lumbar region (ICD-10 - M47.26) Sep, Lumbosacral spondylosis without myelopathy (ICD-10 - M47.817) Patients primary complaint today is low lumbar pain radiating into her right lower extremity, extending past her knee into her foot. Recent MRI results appear relatively normal however show evidence of facet arthritis. We discussed the possibilty of proceeding with facet medial branch blocks as previously scheduled however the patient would like to hold off at this time due to other pending health concerns. In the meantime, we will manage the patients pain the best we can with medication. I will prescribe the patient Oxycodone/ Acetaminophen 5-325 up to twice daily as needed. OARRS was processed and reviewed, no discrepencies. Patient signed an opioid contract with us today and provided a saliva sample for toxassure screening. We will follow up with the patient in one month, sooner if needed. Anatomy of spine discussed in detail with patient in regards to patients condition. Sep, Other chronic pain (ICD-10 - G89.29) Sep, Other Above note writ ten by Lupillo Amezquita MA, Machine Repairer. Edited and approved by Dr. Annette Harris MD. [employer] Other 10-14-2021 Evaluation note* Encounter Date Diagnosis Assessment Notes Treatment Notes Treatment Clinical Notes Aug, Contact dermatitis, unspecified contact dermatitis type, unspecified trigger (ICD-10 - L25.9) Drink plenty fluids, get plenty of rest. Take the prednisone as prescribed until gone starting tomorrow. You may continue to take Benadryl for itching. Apply calamine lotion to the area as needed. Follow-up with your family physician if no improvement in 2 to 3 days. [employer] Other 10-08-2021 Evaluation note* Encounter Date Diagnosis Assessment Notes Treatment Notes Treatment Clinical Notes Aug, Contact with and (suspected) exposure to other viral communicable diseases (ICD-10 - Z20.828) Advised patient that COVID antigen rapid test today in office was negative. Due to close contact with COVID+ person, I am highly suspicious and offered PCR test. After discussion with patient PCR order placed and patient was provided with copy of order and instructions on how to schedule. Advised that I will call them with results within 2-5 days. Note provided to patient to stay at home until PCR results, explained that depending on PCR quarantine timing may change. Discussed supportive care of viral infections, including Tylenol as directed on packaging for fever/aches, previously prescribed medications as directed, increase fluids and rest, cool mist humidification, throat lozenges. Patient to follow-up with UC or PCP for persistent or worsening sx despite tx. Immediate eval by ER for warning s/sx as discussed, including but not limited to, SOB, difficulty breathing, chest pain, palpitations, fever >103 or fevers that are not reduced with antipyretic, significant dehydration (unable to keep fluids or food down, persistent vomiting/diarrhea) , abdominal pain, lethargy, severe headache. Patient was provided with education hand sheet. Patient verbalizes understanding and is agreeable to treatment plan Aug, Other Additional time spent conducting pre-visit phone call, screening for symptoms, instructions on social distancing, application and removal of PPE, and cleaning of examination room, equipment and supplies was preformed. Patient education given for testing methodology and results. Patient care instructions given in writting by [facility] At Home document [employer] Other 10-07-2021 Evaluation note* Encounter Date Diagnosis Assessment Notes Treatment Notes Treatment Clinical Notes Aug, Cervical spondylosis without myelopathy (ICD-10 - M47.812) Patient continues to note moderate benefit from previous cervical facet radiofrequency ablations we performed, she continues to notes some pain on the left side. She continues to have migraine headaches and sees neurology for this. We will continue to monitor her pain symptoms at this time. Anatomy of spine discussed in detail with patient in regards to patients condition. Aug, Other spondylosis with radiculopathy, lumbar region (ICD-10 - M47.26) Patients primary complaint today is low lumbar pain radiating into her right lower extremity, extending past her knee into her foot. Given her previous failed conservative measures and progressive symptoms I will order an MRI of her lumbar spine for further evaluation. Pending the results, we can consider a referral to neurosurgery vs injections. We will follow up with the patient once we obtain the results. Anatomy of spine discussed in detail with patient in regards to patients condition. Aug, Degenerative disc disease, cervical (ICD-10 - M50.30) Aug, Other chronic pain (ICD-10 - G89.29) [employer] Other 09-22-2021 Evaluation note* Encounter Date Diagnosis Assessment Notes Treatment Notes Treatment Clinical Notes Jul, Cervical spondylosis without myelopathy (ICD-10 - M47.812) Patient continues to note moderate benefit from previous cervical facet radiofrequency ablations we performed, she continues to notes some pain on the left side. She continues to have migraine headaches and sees neurology for this. We will continue to monitor her pain symptoms at this time. Anatomy of spine discussed in detail with patient in regards to patients condition. Jul, Lumbar back pain (ICD-10 - M54.5) Patients primary complaint today is axial back pain.She shows noteable pain consistent with the the facet region upon exam which is supported by previous imaging. Based on location of pain and exam findings, patient is a candidate for bilateral lumbar facet medial branch blocks which we will proceed with. It was further explained should this provide significant short term relief we will proceed with a repeat block and subsequent radiofrequency ablation. Anatomy of spine discussed in detail with patient in regards to patients condition. Jul, Degenerative disc disease, cervical (ICD-10 - M50.30) Jul, Other chronic pain (ICD-10 - G89.29) [employer] Other 03-01-2021 Note [id number]:127[facility] 01-04-2021 NoteCystoscopy with Botox injection ? Voiding after the procedure: there may be some pain, burning, urgency, frequency and blood tingedurine following the procedure. These symptoms usually resolve within 2-5 days. Drink the amount of fluid it takes to keep the urine pink to yellow or clear in color. Drinking enough water and fluids will help to ease any discomfort after your procedure. ? It may take a few days to a week to notice a gradual improvement in the overactive bladder symptoms. ? If you are having problems that seem out of the ordinary, please call. ? If unable to contact your physician and you feel it is an emergency, go to the nearest emergency room or call 911 ? Do not lift more than fifteen pounds for 1-2 days. If you see a lot of blood, you probably did too much. ? Diet ? you may resume your normal diet. ? Pain control ? You may take extra strength Tylenol or Motrin for discomfort. ? Call if you have a fever over 100 degrees.[facility] 11-11-2020 NoteChief Complaint Pt is here for 2 week follow up to urodynamic evaluation HPI Staff Pt is here for 2 weeks follow up to urodynamic evaluation done on 10/27/2020. Previous dx OAB, Nocturia, Weak urine stream, and Stress incontinence. Pain with urination:Pt denies pain and burning Blood in urine:Pt denies Incomplete bladder emptying:Pt states that she still feels like she is not emptying out Frequency:Pt denies Urgency:Pt states some what Nocturia:Pt states 2 times Hesitancy:Pt states that she does occasionally Urination requires straining:Pt states that she has to strain Stream:Pt denies Stream starts and stops:Pt denies Leaking before getting to the restroom:Pt denies Urinary incontinence without sensory awareness:Pt denies Temporarily unable to restrain urination with body movement:Pt states all the time when she coughs and sneezes Wearing pad/Depends:Pt denies Urine odor:Pt denies Flank/Back pain:Pt denies Abdominal pain:Pt denies History of Present Illness Today I have reviewed the urine and urodynamics results. There have been no associated fever, chills, flank pain or blood in the urine. Pt. denies any pain/burning with urination at this time. Review of Systems ROS - Provider Constitutional: denies weight loss, denies hot flashes. Eyes: denies eye problems. Gastrointestinal: denies nausea, denies vomiting. Cardiovascular: denies chest pain or angina. Integumentary: no dryness Musculoskeletal: denies musculoskeletal symptoms. ENMT: denies otolaryngeal symptoms. Respiratory: no shortness of breath. Heme/Lymph: denies easy bleeding tendency, denies easy bruising tendency. Psychiatric: no confusion, no anxiety. Genitourinary: denies vaginal discharge, moderate incontinence, denies dysuria, denies hematuria, moderate urinary frequency, denies amenorrhea, denies menorrhagia, denies abnormal bleeding, denies pelvic pain, denies genital sores, and denies decreased libido. Physical Exam Vitals & Measurements HR: 60(Peripheral) RR: 16 BP: 137/91 HT: 162 cm HT: 162.0 cm WT: 86.7 kg WT: 86.7 kg BMI: 33.04 General Appearance: alert , no acute distress, well nourished, well developed female. Genitourinary: bladder nonpalpable, no flank pain. Assessment/Plan 1. Mixed incontinence (N39.46: Mixed incontinence) Moderate urge and stress incontinence. S/p Urodynamics done 10/27/2020. Pt. appears to have a smallbladder as her capacity prior to the urodynamic testing was only 150ml. I discussed with the pt. possibly having Botox procedures in the future. Benefits and risks have been discussed. Pt. would not like to do anything at this time due to recent arm surgery. All questions/concerns were discussed. Pt. to call the office if sheencounters any issues prior. Pt. acknowledges understanding. F/u in 1yr. 2. Nocturia (R35.1: Nocturia) 2x/night. 3. Weak urine stream (R39.12: Poor urinary stream) Weak stream w/ hesitancy and straining to void. I have reviewed the previous health record information and history for this pt. from Dr. Marmolejo. 50 YO female with mixed urinary incontinence preveiously assess as urge predominant now reported asstress predominant without reproduction of her stress incontinence on UDS with a walk in capcity of150 mL and a cystocopic capacity of only 69 mL. Her walk in PVR was 75 mL. She had a cystoscopy without severe prolpase and no urethral stricture appreciated. At this time I recommended either a cystoscopy and hydrodistention of a cystoscopy and bladder botox injection. She declined these opstion which is reasonable as today she denied even using liners. Patient can followup in 1 year with PVR. Given equal voided volume and PVR in female consider repeat PVR vs upper tract imaging. Consider upper tract imaging as rarely decreased capacity and urgency can be a atypical presentation of upper tract issues. I spent 20 minutes with this patient over 50% of which was spent counseling and coordinating care. Follow-up With When Contact Information Francie BENSON, Dawna Feldman [address] [place] [address]- [phone] Additional Instructions: F/u in 1yr. Patient Education Urinary Frequency Christy Gloria , personally scribed for Dr. Marmolejo on 11/11/2020 12:07:15. Electronically signedby milind Gill on 11/11/2020 12:07:15. Documentation recorded by the kristaibChristy rios, accurately reflects the services(s) I performed and decisions made by me. Authenticated by Dr. Marmolejo on 11/11/2020 12:10:08. Problem List/Past Medical History Ongoing Abdominal pain Arthritis Asthma Chronic pelvic pain in female Dysuria Feeling of incomplete bladder emptying Flank pain Frequency of urination Headache Hypertension Interstitial cystitis Mixed incontinence Nocturia OAB (overactive bladder) Stress incontinence Stress incontinence, female Urgency of urination Weak urine stream Historical Acid reflux Attention deficit disorder Bipolar disorder (more content not included)...[facility] Comment on above:Result Comment: Electronically Signed By: Dawna Marmolejo MD\.br\Date and Time Signed: 11/11/2111:16 EST\.br\Electronically Co-Signed By: Christy Gill MA\.br\Date and Time Co-Signed: 11/11/20 12:07 [id number]:127[facility] Center[facility] N[facility]ative - Reported* MARY LEAL is being seen for an initial evaluation of. * 52-year-old female seen in cardiology consultation at the request of her primary care physician forelevated troponin while in [facility] this past spring that was associated with a GI bleed/gastritis. * Patient recently underwent large bowel resection details of which are unknown and I suspect possibly consistent with ulcerative colitis but again unknown pathology. She had a diverting colostomy with3 anastomosis performed. While in [place] with her GI bleed and primarily gastric and epigastric discomfort that radiated to the chest as described in the reports that are reviewed and per the patient, her initial troponin was 143. She did have a cardiology consult details of which are unknown, shedid have a heart catheterization, details unknown other than from the patient's report that there was no intervention and arteries were okay . * Her chief complaints are orthostasis, underlying anxiety, occasional chest discomfort. * Her ECG today is normal. * At this juncture I believe her main problems are related to post operative colectomy symptoms, volume depletion, and angiolytic medications that are currently being used. * I believe minor troponin elevation in [place] was simply at small type II non- [place] troponin elevationrelated to inflammation and gastritis and not a true atherosclerotic event. We will try to acquire the cardiac catheterization report to further elucidate her anatomy. I would not recommend any further cardiovascular intervention or treatment at this juncture and would recommend consideration for reduction in her anxiolytic therapies as well as aggressive rehydration postoperative large bowel colectomy. She can follow-up as needed otherwise. -[facility]-[address] DO Work Phone: Evaluation note* Diagnosis Pelvic floor dysfunction- Primary Pelvic muscle wasting Lack of coordination Follow-up examination after colorectal surgery Follow-up examination, following other surgery documented in this encounter [facility] note* Diagnosis Gastroesophageal reflux disease, unspecified whether esophagitis present documented in this encounter [facility] note* Diagnosis Follow-up examination after colorectal surgery- Primary Follow-up examination, following other surgery documented in this encounter [facility] note* Diagnosis Post-operative state- Primary Other postprocedural status Yeast infection of the skin Candidiasis of skin and nails documented in this encounter [facility] note* Diagnosis Pelvic floor dysfunction- Primary Pelvic muscle wasting Lack of coordination Follow-up examination after colorectal surgery Follow-up examination, following other surgery documented in this encounter [facility] note* Diagnosis Postoperative state- Primary Other postprocedural status Attention to ileostomy (HCC) Attention to ileostomy documented in this encounter [facility] note* Diagnosis Preop examination- Primary Preoperative examination, unspecified Attention to ileostomy (HCC) Attention to ileostomy Primary hypertension Unspecified essential hypertension Gastroparesis Gastroesophageal reflux disease, unspecified whether esophagitis present Mild persistent asthma without complication Unspecified asthma Bipolar 1 disorder (HCC) Bipolar I disorder, most recent episode (or current) unspecified Obesity (BMI 30.0-34.9) Obesity, unspecified Attention to ileostomy (HCC) Attention to ileostomy documented in this encounter [facility] note* Diagnosis Gastroesophageal reflux disease, unspecified whether esophagitis present Chronic idiopathic constipation Unspecified constipation Attention to ileostomy (HCC) Attention to ileostomy documented in this encounter [facility] note* Diagnosis Follow-up examination after colorectal surgery- Primary Follow-up examination, following other surgery Pelvic floor dysfunction Pelvic muscle wasting documented in this encounter [facility] noteNo InformationNortKojami Other Evaluation noteNortKojami Other Evaluation note* Diagnosis Follow-up examination after colorectal surgery- Primary Follow-up examination, following other surgery Periumbilical abdominal pain Abdominal pain, periumbilic Outlet dysfunction constipation Colonic inertia Other functional disorders of intestine documented in this encounter [facility] noteNo assessment information availableTrihealth Work Phone: [facility]* Diagnosis Gas bloat syndrome- Primary Chronic idiopathic constipation Unspecified constipation Gastroparesis documented in this encounter [facility] note* Diagnosis Gastroesophageal reflux disease, unspecified whether esophagitis present documented in this encounter [facility] note* Diagnosis Gastroparesis- Primary documented in this encounter [facility] note* Diagnosis CHUCKIE (obstructive sleep apnea)- Primary Obstructive sleep apnea (adult) (pediatric) documented in this encounter [facility] note* Diagnosis Pre-op exam- Primary Preoperative examination, unspecified Primary hypertension Unspecified essential hypertension Mild persistent asthma without complication Unspecified asthma Gastroparesis CHUCKIE (obstructive sleep apnea) Obstructive sleep apnea (adult) (pediatric) documented in this encounter [facility] note* Diagnosis CHUCKIE (obstructive sleep apnea)- Primary Obstructive sleep apnea (adult) (pediatric) documented in this encounter [facility] note* Diagnosis Chronic idiopathic constipation- Primary Unspecified constipation Nausea Nausea alone documented in this encounter [facility] note* Diagnosis Gastroesophageal reflux disease with esophagitis without hemorrhage- Primary documented in this encounter [facility] note* Diagnosis Colonic inertia- Primary Other functional disorders of intestine Pelvic floor dysfunction Pelvic muscle wasting Nausea Nausea alone Gastroparesis documented in this encounter [facility] note* Diagnosis Pylorospasm- Primary Functional dyspepsia Dyspepsia and other specified disorders of function of stomach Gastroesophageal reflux disease with esophagitis without hemorrhage documented in this encounter [facility] note* Diagnosis Gastroesophageal reflux disease, unspecified whether esophagitis present documented in this encounter [facility] note* Diagnosis CHUCKIE (obstructive sleep apnea)- Primary Obstructive sleep apnea (adult) (pediatric) documented in this encounter [facility] note* Diagnosis Pylorospasm- Primary Functional dyspepsia Dyspepsia and other specified disorders of function of stomach Gastroesophageal reflux disease with esophagitis without hemorrhage documented in this encounter [facility] note* Diagnosis Gastroparesis- Primary documented in this encounter [facility] note* Diagnosis Preop examination- Primary Preoperative examination, unspecified Nausea Nausea alone CHUCKIE (obstructive sleep apnea) Obstructive sleep apnea (adult) (pediatric) Mild persistent asthma without complication Unspecified asthma Gastroesophageal reflux disease, unspecified whether esophagitis present Gastroparesis documented in this encounter [facility] note* Diagnosis 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 Personal history of other diseases of digestive system documented in this encounter [facility] note* Diagnosis Gastroesophageal reflux disease, unspecified whether esophagitis present documented in this encounter [facility] note* Diagnosis Incomplete bladder emptying- Primary Constipation, unspecified constipation type Urinary urgency Urgency of urination Urinary frequency Nocturia documented in this encounter [facility] note* Diagnosis Upper abdominal pain- Primary Abdominal pain, other specified site documented in this encounter [facility] Diagnosis Burning with urination- Primary Dysuria documented in this encounter [facility] note* Diagnosis Ashley vaginitis Candidiasis of vulva and vagina documented in this encounter [facility] general Narrative - Reported* Type Description Date Medical History depression Medical History bipolar Medical History add Medical History gerd Medical History asthma - age 14. Medical History Endometriosis, unspecified Medical History CONSTIPATION Medical History gastroparesis Surgical History tubal ligation Surgical History right hand cts Surgical History left knee arthroscopic Surgical History bilateral bunionectomy Surgical History hysterectomy Surgical History Neck Surgery 09/16/2017 Surgical History Left Foot Surgery- plantar Fasc iatis 03/28/19 Surgical History Left foot - tarsal tunnel 07/26 19 Surgical History left foot 06/2020 Surgical History tonsillectomy 02/2021 Hospitalization History see above list Hospitalization History respiratory 02/2020 [employer] Other [employer] general Narrative - ReportedNoKojami Other [employer] general Narrative - Reported* Type Description Date Medical History depression Medical History bipolar Medical History add Medical History gerd Medical History asthma - age 14. Medical History Endometriosis, unspecified Medical History CONSTIPATION Medical History gastroparesis Surgical History tubal ligation Surgical History right hand cts Surgical History left knee arthroscopic Surgical History bilateral bunionectomy Surgical History hysterectomy Surgical History Neck Surgery 09/16/2017 Surgical History Left Foot Surgery- plantar Fasc iatis 03/28/19 Surgical History Left foot - tarsal tunnel 07/26 19 Surgical History left foot 06/2020 Surgical History tonsillectomy 02/2021 Surgical History ileostomy reversal Surgical History colectomy Hospitalization History see above list Hospitalization History respiratory 02/2020 [employer] Other Reason for referral (narrative)* Outpatient Procedure (Routine) - Pending Review Specialty Diagnoses / Procedures Referred By Gustavo salazar Referred To Contact [facility] Diagnoses Gastroparesis Procedures CAPSULE ENDOSCOPY SMART Isra Masters DO [facility] [address] [place] [address] [facility] [place] [phone] Referral ID Status Reason Start Date Expiration Date Visits Requested Visits Authorized [id number] Pending Review Auto-Generat ed Referral 10/11/2022 10/11/2023 1 1 [facility] for referral (narrative)* Outpatient Procedure (Routine) - Pending Review Specialty Diagnoses / Procedures Referred By Contac t Referred To Contact [facility] Diagnoses Chronic idiopathic constipation Procedures SIGMOIDOSCOPY SIGMOIDOSCOPY FLX DX W/COLLJ SPEC BR/WA IF PFRMD Isra Masters DO [facility] [address] [place] [id number] [place] [id number] Referral ID Status Reason Start Date Expiration Date Visits Requested Visits Authorized [id number] Pending Review Auto-Generat ed Referral 11/30/2022 11/30/2023 1 1 [facility] for referral (narrative)* Outpatient Procedure (Routine) - Pending Review Specialty Diagnoses / Procedures Referred By Contac t Referred To Contact [facility] Diagnoses Gastroparesis Procedures EGD - THERAPEUTIC, EUS, OR TUBE INTERVENTIONS ESOPHAGOGASTRODUODENOSC OPY TRANSORAL DIAGNOSTIC STOMACH SURGERY PROCEDURE [place] [address] [facility] [place] [address] [place], [place] [id number] Referral ID Status Reason Start Date Expiration Date Visits Requested Visits Authorized [id number] Pending Review Auto-Generat ed Referral 01/11/2023 01/12/2024 1 1 [facility] for referral (narrative)* Outpatient Procedure (Routine) - Pending Review Specialty Diagnoses / Procedures Referred By Contac t Referred To Contact [facility] Diagnoses Incomplete bladder emptying Urinary urgency Urinary frequency Nocturia Procedures URODYNAMICS WHI COMPLX CYSTOMETRO W/VOID PRESS&URETHRAL PROFILE Nelsy Chávez APRN.AUTOMOTIVE SERVICE TECHNICIAN [address] [place] [address] [facility] [address] [place] [address] Referral ID Status Reason Start Date Expiration Date Visits Requested Visits Authorized [id number] Pending Review Auto-Generat ed Referral 07/31/2023 07/30/2024 1 1 [facility] Consultation (Routine) - Open Specialty Diagnoses / Procedures Referred By Gustavo t Referred To Contact Family Medicine Diagnoses Upper abdominal pain Lev Ritter APRN AUTOMOTIVE SERVICE TECHNICIAN [address] [place] [address] [facility] [address] [place] [address] Referral ID Status Reason Start Date Expiration Date Visits Re quested Visits Authorized [id number] Open 08/12/2023 09/12/2024 1 1 [facility] NarrativeDISCUSS OTHER OPTIONS PRIOR TO [facility] [employer] Other Reason for visit NarrativeRECHECK CERVICAL PAIN DISCUSS PROCEDURENort [employer] Other Reason for visit Narrative* Outpatient Procedure (Routine) - Closed Specialty Diagnoses / Procedures Referred By Contac t Referred To Contact [facility] Diagnoses Gastroparesis Procedures GI TRANSIT & PRES RAVINDER WIRELESS CAPSULE W/INTERP Isra Masters DO [facility] [address] [place] [address] [facility] [place] [address] [place] [phone] Referral ID Status Reason Start Date Expiration Date Visits Re quested Visits Authorized [id number] Closed 11/08/2022 11/05/2023 1 1 [facility] Summary Purpose Family History No Family History Records FoundUnknown Family Member Name Dates Details Adopted: Father(V68.89, Z02. 82) Status:Active Family history of cardiac pa cemaker: Father(V17.49, Z82.49) Status:Active Unknown Family Member Name Dates Details Adopted: Father(V68.89, Z02. 82) Status:Active Family history of cardiac pa cemaker: Father(V17.49, Z82.49) Status:Active Unknown Family Member Name Dates Details Adopted: Father(V68.89, Z02. 82) Status:Active Family history of cardiac pa cemaker: Father(V17.49, Z82.49) Status:Active Advance Directives No Advanced Directives Records FoundDocuments on File Type Date Recorded Patient Energy Project Manager Expl anation Advance Directive(s) 10/13/2021 4:09 PM Advance Directive(s) 10/14/2020 8:14 AM Documents on File Type Date Recorded Patient Energy Project Manager Expl anation Advance Directive(s) 10/13/2021 4:09 PM Advance Directive(s) 10/14/2020 8:14 AM Documents on File Type Date Recorded Patient Energy Project Manager Expl anation Advance Directive(s) 03/21/2022 1:42 PM Advance Directive(s) 10/13/2021 4:09 PM Advance Directive(s) 10/14/2020 8:14 AM Advance Directive Response Recorded Date/ Time Advance Directives No March 28 7:15am Advance Directive Response Recorded Date/ Time Advance Directives No March 28 8:15am Reason for Referral Specialty Diagnoses / Procedures Referred By Gustavo t Referred To Contact Diagnoses Gastroesophageal reflux disease, unspecified whether esophagitis present Isra Masters DO [facility] [address] [place] [address] Referral ID Status Reason Start Date Expiration Date Visits Re quested Visits Authorized [id number] Closed 1 1 Referral ID Status Reason Start Date Expiration Date V isits Requested Visits Authorized [id number] Pending Review 1 1 Specialty Diagnoses / Procedures Referred By Contac t Referred To Contact CT IMAGING Diagnoses Periumbilical abdominal pain Procedures CT ABD/PEL W IVCON CT ABD & PELVIS [place] [address] [place] [address] Ct Imaging Referral ID Status Reason Start Date Expiration Date Visits Requested Visits Authorized [id number] Pending Review Auto-Generat ed Referral 08/02/2022 08/25/2023 1 1 Reason BILATERAL SHOULDER P AIN Diagnosis 1 Shoulder pain (M25.5 19) Referral Organization [facility] Referring Provider First Name Annette Referring Provider Last Name Steven Referring Provider Specialty Pain Medici ne Referred Organization [facility] Referred Provider Annette Cartagena Referred Address [address] [facility] [place], [place],[address] Referred Provider Specialty Orthopedic S urgery Referral Priority Routine Referral Appointment Date 2022-10-10 General Notes Kim Manley 10:01:46 AM >patient already scheduled with [facility] 10/10/22 at 1:30pm. Sending p2p at this time Referral ID Status Reason Start Date Expiration Date Visits Re quested Visits Authorized [id number] Closed 1 1 Chief Complaint and Reason for Visit Chief Complaint M25.519 M25.569 R52 Chief Complaint M25.519 M25.569 R52 bilateral shoulder pain Chief Complaint M76.821/right foor p ain Chief Complaint M76.821/right foor p ain chest tightness dizzy sob Chief Complaint * Patient is a 53-year-old female who returns at the request of her primary care physician with episodic chest discomfort associated weakness, dizziness, diaphoresis with recent work-up that [facility] emergency room. Reportedly her troponins are elevated although we have no documentation at this time but will obtain this documentation * Today's ECG in the office was completely normal. She states she has sporadic, sharp, fleeting as well as right-sided, shoulder and back discomfort. She has a number of GI issues with previous partialcolectomy as an inflammatory bowel disease details of which are currently being investigated at [facility] (now her fourth GI specialist). * Last year while in [place] she had similar issues with elevated troponins in the ED and underwent heart catheterization that did not reveal any specific significant disease, details of the discharge summary are reviewed * She underwent recent stress perfusion imaging at [facility], the report is reviewed, she hasno evidence of myocardial infarction, ischemia and has preserved/normal left ventricular function. * She is nondiabetic, non-smoker there is a family history of coronary disease in her father and grandfather * She denies any previous true myocardial infarction, revascularization, stroke, thromboembolic bleeding disorder. * She ambulates without any hindrance or restrictions other than she has a walking boot on for recentankle injury. * Recommendations: No evidence of ischemic coronary disease, will investigate the troponin rise at [facility] however I believe this is likely a non- [place] troponin elevation, likely associated withunderlying inflammatory bowel disease. We will follow-up on a as needed basis unless further objective data come to light * Patient is a 53-year-old female who returns at the request of her primary care physician with episodic chest discomfort associated weakness, dizziness, diaphoresis with recent work-up that [facility] emergency room. Reportedly her troponins are elevated although we have no documentation at this time but will obtain this documentation * Today's ECG in the office was completely normal. She states she has sporadic, sharp, fleeting as well as right-sided, shoulder and back discomfort. She has a number of GI issues with previous partialcolectomy as an inflammatory bowel disease details of which are currently being investigated at [facility] (now her fourth GI specialist). * Last year while in [place] she had similar issues with elevated troponins in the ED and underwent heart catheterization that did not reveal any specific significant disease, details of the discharge summary are reviewed * She underwent recent stress perfusion imaging at [facility], the report is reviewed, she hasno evidence of myocardial infarction, ischemia and has preserved/normal left ventricular function. * She is nondiabetic, non-smoker there is a family history of coronary disease in her father and grandfather * She denies any previous true myocardial infarction, revascularization, stroke, thromboembolic bleeding disorder. * She ambulates without any hindrance or restrictions other than she has a walking boot on for recentankle injury. * Recommendations: No evidence of ischemic coronary disease, will investigate the troponin rise at [facility] however I believe this is likely a non- [place] troponin elevation, likely associated withunderlying inflammatory bowel disease. We will follow-up on a as needed basis unless further objective data come to light Additional Source Comments INFORMATION SOURCE (unrecogn ized section and content) DATE CREATED AUTHOR 07/08/2021 Filippo Ybarra [facility] DATE CREATED AUTHOR AUTHOR'S ORGANIZ ATION 11/18/2021 [facility] DATE CREATED AUTHOR AUTHOR'S ORGANIZ ATION 02/01/2022 [facility] DATE CREATED AUTHOR AUTHOR'S ORGANIZ ATION 04/05/2022 [facility] DATE CREATED AUTHOR AUTHOR'S ORGANIZ ATION 09/29/2022 [facility] DATE CREATED AUTHOR AUTHOR'S ORGANIZ ATION 12/09/2022 [facility] DATE CREATED AUTHOR AUTHOR'S ORGANIZ ATION 04/16/2023 [facility] DATE CREATED AUTHOR AUTHOR'S ORGANIZ ATION 06/14/2023 [employer] DATE CREATED AUTHOR AUTHOR'S ORGANIZ ATION 06/18/2023 [facility] DATE CREATED AUTHOR AUTHOR'S ORGANIZ ATION [facility]/14/2023 [facility] DATE CREATED AUTHOR AUTHOR'S ORGANIZ ATION 09/02/2023 [facility] DATE CREATED AUTHOR AUTHOR'S ORGANIZ ATION 10/09/2023 [facility] EPIC DATE CREATED AUTHOR AUTHOR'S ORGANIZ ATION 10/12/[address] [facility] DATE CREATED AUTHOR AUTHOR'S ORGANIZ ATION 10/14/2023 [facility] Source Comments (unrecognize d section and content) In the event this informatio n is protected by the Federal Confidentiality of Alcohol and Drug Abuse Patient Records regulations: The Federal rules restrict any use of the information to criminally investigate or prosecute any alcohol or drug abuse patient.[facility] the event this information is protected by the Federal Confidentiality of Alcohol and Drug Abuse Patient Records regulations: The Federal rules restrict any use of the information to criminally investigate or prosecute any alcohol or drug abuse patient.[facility] CenterIn the event this information is protected by the Federal Confidentiality of Alcohol and Drug Abuse Patient Records regulations: The Federal rules restrict any use of the information to criminally investigate or prosecute any alcohol or drug abuse patient.[facility] CenterIn the event this information is protected by the Federal Confidentiality of Alcohol and Drug Abuse Patient Records regulations: The Federal rules restrict any use of the information to criminally investigate or prosecute any alcohol or drug abuse patient.[facility] CenterIn the event this information is protected by the Federal Confidentiality of Alcohol and Drug Abuse Patient Records regulations: The Federal rules restrict any use of the information to criminally investigate or prosecute any alcohol or drug abuse patient.[facility] CenterIn the event this information is protected by the Federal Confidentiality of Alcohol and Drug Abuse Patient Records regulations: The Federal rules restrict any use of the information to criminally investigate or prosecute any alcohol or drug abuse patient.[facility] CenterIn the event this information is protected by the Federal Confidentiality of Alcohol and Drug Abuse Patient Records regulations: The Federal rules restrict any use of the information to criminally investigate or prosecute any alcohol or drug abuse patient.[facility] CenterIn the event this information is protected by the Federal Confidentiality of Alcohol and Drug Abuse Patient Records regulations: The Federal rules restrict any use of the information to criminally investigate or prosecute any alcohol or drug abuse patient.[facility] CenterIn the event this information is protected by the Federal Confidentiality of Alcohol and Drug Abuse Patient Records regulations: The Federal rules restrict any use of the information to criminally investigate or prosecute any alcohol or drug abuse patient.[facility] CenterIn the event this information is protected by the Federal Confidentiality of Alcohol and Drug Abuse Patient Records regulations: The Federal rules restrict any use of the information to criminally investigate or prosecute any alcohol or drug abuse patient.[facility] CenterIn the event this information is protected by the Federal Confidentiality of Alcohol and Drug Abuse Patient Records regulations: The Federal rules restrict any use of the information to criminally investigate or prosecute any alcohol or drug abuse patient.[facility] CenterIn the event this information is protected by the Federal Confidentiality of Alcohol and Drug Abuse Patient Records regulations: The Federal rules restrict any use of the information to criminally investigate or prosecute any alcohol or drug abuse patient.[facility] CenterIn the event this information is protected by the Federal Confidentiality of Alcohol and Drug Abuse Patient Records regulations: The Federal rules restrict any use of the information to criminally investigate or prosecute any alcohol or drug abuse patient.[facility] CenterIn the event this information is protected by the Federal Confidentiality of Alcohol and Drug Abuse Patient Records regulations: The Federal rules restrict any use of the information to criminally investigate or prosecute any alcohol or drug abuse patient.[facility] CenterIn the event this information is protected by the Federal Confidentiality of Alcohol and Drug Abuse Patient Records regulations: The Federal rules restrict any use of the information to criminally investigate or prosecute any alcohol or drug abuse patient.[facility] CenterIn the event this information is protected by the Federal Confidentiality of Alcohol and Drug Abuse Patient Records regulations: The Federal rules restrict any use of the information to criminally investigate or prosecute any alcohol or drug abuse patient.[facility] CenterIn the event this information is protected by the Federal Confidentiality of Alcohol and Drug Abuse Patient Records regulations: The Federal rules restrict any use of the information to criminally investigate or prosecute any alcohol or drug abuse patient.[facility] CenterIn the event this information is protected by the Federal Confidentiality of Alcohol and Drug Abuse Patient Records regulations: The Federal rules restrict any use of the information to criminally investigate or prosecute any alcohol or drug abuse patient.[facility] CenterIn the event this information is protected by the Federal Confidentiality of Alcohol and Drug Abuse Patient Records regulations: The Federal rules restrict any use of the information to criminally investigate or prosecute any alcohol or drug abuse patient.[facility] CenterIn the event this information is protected by the Federal Confidentiality of Alcohol and Drug Abuse Patient Records regulations: The Federal rules restrict any use of the information to criminally investigate or prosecute any alcohol or drug abuse patient.[facility] CenterIn the event this information is protected by the Federal Confidentiality of Alcohol and Drug Abuse Patient Records regulations: The Federal rules restrict any use of the information to criminally investigate or prosecute any alcohol or drug abuse patient.[facility] CenterIn the event this information is protected by the Federal Confidentiality of Alcohol and Drug Abuse Patient Records regulations: The Federal rules restrict any use of the information to criminally investigate or prosecute any alcohol or drug abuse patient.[facility] CenterIn the event this information is protected by the Federal Confidentiality of Alcohol and Drug Abuse Patient Records regulations: The Federal rules restrict any use of the information to criminally investigate or prosecute any alcohol or drug abuse patient.[facility] CenterIn the event this information is protected by the Federal Confidentiality of Alcohol and Drug Abuse Patient Records regulations: The Federal rules restrict any use of the information to criminally investigate or prosecute any alcohol or drug abuse patient.[facility] CenterIn the event this information is protected by the Federal Confidentiality of Alcohol and Drug Abuse Patient Records regulations: The Federal rules restrict any use of the information to criminally investigate or prosecute any alcohol or drug abuse patient.[facility] CenterIn the event this information is protected by the Federal Confidentiality of Alcohol and Drug Abuse Patient Records regulations: The Federal rules restrict any use of the information to criminally investigate or prosecute any alcohol or drug abuse patient.[facility] CenterIn the event this information is protected by the Federal Confidentiality of Alcohol and Drug Abuse Patient Records regulations: The Federal rules restrict any use of the information to criminally investigate or prosecute any alcohol or drug abuse patient.[facility] CenterIn the event this information is protected by the Federal Confidentiality of Alcohol and Drug Abuse Patient Records regulations: The Federal rules restrict any use of the information to criminally investigate or prosecute any alcohol or drug abuse patient.[facility] CenterIn the event this information is protected by the Federal Confidentiality of Alcohol and Drug Abuse Patient Records regulations: The Federal rules restrict any use of the information to criminally investigate or prosecute any alcohol or drug abuse patient.[facility] CenterIn the event this information is protected by the Federal Confidentiality of Alcohol and Drug Abuse Patient Records regulations: The Federal rules restrict any use of the information to criminally investigate or prosecute any alcohol or drug abuse patient.[facility] CenterIn the event this information is protected by the Federal Confidentiality of Alcohol and Drug Abuse Patient Records regulations: The Federal rules restrict any use of the information to criminally investigate or prosecute any alcohol or drug abuse patient.[facility] CenterIn the event this information is protected by the Federal Confidentiality of Alcohol and Drug Abuse Patient Records regulations: The Federal rules restrict any use of the information to criminally investigate or prosecute any alcohol or drug abuse patient.[facility] CenterIn the event this information is protected by the Federal Confidentiality of Alcohol and Drug Abuse Patient Records regulations: The Federal rules restrict any use of the information to criminally investigate or prosecute any alcohol or drug abuse patient.[facility] CenterIn the event this information is protected by the Federal Confidentiality of Alcohol and Drug Abuse Patient Records regulations: The Federal rules restrict any use of the information to criminally investigate or prosecute any alcohol or drug abuse patient.[facility] CenterIn the event this information is protected by the Federal Confidentiality of Alcohol and Drug Abuse Patient Records regulations: The Federal rules restrict any use of the information to criminally investigate or prosecute any alcohol or drug abuse patient.[facility] CenterIn the event this information is protected by the Federal Confidentiality of Alcohol and Drug Abuse Patient Records regulations: The Federal rules restrict any use of the information to criminally investigate or prosecute any alcohol or drug abuse patient.[facility] CenterIn the event this information is protected by the Federal Confidentiality of Alcohol and Drug Abuse Patient Records regulations: The Federal rules restrict any use of the information to criminally investigate or prosecute any alcohol or drug abuse patient.[facility] CenterIn the event this information is protected by the Federal Confidentiality of Alcohol and Drug Abuse Patient Records regulations: The Federal rules restrict any use of the information to criminally investigate or prosecute any alcohol or drug abuse patient.[facility] CenterIn the event this information is protected by the Federal Confidentiality of Alcohol and Drug Abuse Patient Records regulations: The Federal rules restrict any use of the information to criminally investigate or prosecute any alcohol or drug abuse patient.[facility] CenterIn the event this information is protected by the Federal Confidentiality of Alcohol and Drug Abuse Patient Records regulations: The Federal rules restrict any use of the information to criminally investigate or prosecute any alcohol or drug abuse patient.[facility] CenterIn the event this information is protected by the Federal Confidentiality of Alcohol and Drug Abuse Patient Records regulations: The Federal rules restrict any use of the information to criminally investigate or prosecute any alcohol or drug abuse patient.[facility] CenterIn the event this information is protected by the Federal Confidentiality of Alcohol and Drug Abuse Patient Records regulations: The Federal rules restrict any use of the information to criminally investigate or prosecute any alcohol or drug abuse patient.[facility] CenterIn the event this information is protected by the Federal Confidentiality of Alcohol and Drug Abuse Patient Records regulations: The Federal rules restrict any use of the information to criminally investigate or prosecute any alcohol or drug abuse patient.[facility] CenterIn the event this information is protected by the Federal Confidentiality of Alcohol and Drug Abuse Patient Records regulations: The Federal rules restrict any use of the information to criminally investigate or prosecute any alcohol or drug abuse patient.[facility] CenterIn the event this information is protected by the Federal Confidentiality of Alcohol and Drug Abuse Patient Records regulations: The Federal rules restrict any use of the information to criminally investigate or prosecute any alcohol or drug abuse patient.[facility] CenterIn the event this information is protected by the Federal Confidentiality of Alcohol and Drug Abuse Patient Records regulations: The Federal rules restrict any use of the information to criminally investigate or prosecute any alcohol or drug abuse patient.[facility] CenterIn the event this information is protected by the Federal Confidentiality of Alcohol and Drug Abuse Patient Records regulations: The Federal rules restrict any use of the information to criminally investigate or prosecute any alcohol or drug abuse patient.[facility] CenterIn the event this information is protected by the Federal Confidentiality of Alcohol and Drug Abuse Patient Records regulations: The Federal rules restrict any use of the information to criminally investigate or prosecute any alcohol or drug abuse patient.[facility] CenterIn the event this information is protected by the Federal Confidentiality of Alcohol and Drug Abuse Patient Records regulations: The Federal rules restrict any use of the information to criminally investigate or prosecute any alcohol or drug abuse patient.[facility] CenterIn the event this information is protected by the Federal Confidentiality of Alcohol and Drug Abuse Patient Records regulations: The Federal rules restrict any use of the information to criminally investigate or prosecute any alcohol or drug abuse patient.[facility] CenterIn the event this information is protected by the Federal Confidentiality of Alcohol and Drug Abuse Patient Records regulations: The Federal rules restrict any use of the information to criminally investigate or prosecute any alcohol or drug abuse patient.[facility] CenterIn the event this information is protected by the Federal Confidentiality of Alcohol and Drug Abuse Patient Records regulations: The Federal rules restrict any use of the information to criminally investigate or prosecute any alcohol or drug abuse patient.[facility] CenterIn the event this information is protected by the Federal Confidentiality of Alcohol and Drug Abuse Patient Records regulations: The Federal rules restrict any use of the information to criminally investigate or prosecute any alcohol or drug abuse patient.[facility] CenterIn the event this information is protected by the Federal Confidentiality of Alcohol and Drug Abuse Patient Records regulations: The Federal rules restrict any use of the information to criminally investigate or prosecute any alcohol or drug abuse patient.[facility] CenterIn the event this information is protected by the Federal Confidentiality of Alcohol and Drug Abuse Patient Records regulations: The Federal rules restrict any use of the information to criminally investigate or prosecute any alcohol or drug abuse patient.[facility] CenterIn the event this information is protected by the Federal Confidentiality of Alcohol and Drug Abuse Patient Records regulations: The Federal rules restrict any use of the information to criminally investigate or prosecute any alcohol or drug abuse patient.[facility] CenterIn the event this information is protected by the Federal Confidentiality of Alcohol and Drug Abuse Patient Records regulations: The Federal rules restrict any use of the information to criminally investigate or prosecute any alcohol or drug abuse patient.[facility] CenterIn the event this information is protected by the Federal Confidentiality of Alcohol and Drug Abuse Patient Records regulations: The Federal rules restrict any use of the information to criminally investigate or prosecute any alcohol or drug abuse patient.[facility] CenterIn the event this information is protected by the Federal Confidentiality of Alcohol and Drug Abuse Patient Records regulations: The Federal rules restrict any use of the information to criminally investigate or prosecute any alcohol or drug abuse patient.[facility] CenterIn the event this information is protected by the Federal Confidentiality of Alcohol and Drug Abuse Patient Records regulations: The Federal rules restrict any use of the information to criminally investigate or prosecute any alcohol or drug abuse patient.[facility] CenterIn the event this information is protected by the Federal Confidentiality of Alcohol and Drug Abuse Patient Records regulations: The Federal rules restrict any use of the information to criminally investigate or prosecute any alcohol or drug abuse patient.[facility] CenterIn the event this information is protected by the Federal Confidentiality of Alcohol and Drug Abuse Patient Records regulations: The Federal rules restrict any use of the information to criminally investigate or prosecute any alcohol or drug abuse patient.[facility] CenterIn the event this information is protected by the Federal Confidentiality of Alcohol and Drug Abuse Patient Records regulations: The Federal rules restrict any use of the information to criminally investigate or prosecute any alcohol or drug abuse patient.[facility] CenterIn the event this information is protected by the Federal Confidentiality of Alcohol and Drug Abuse Patient Records regulations: The Federal rules restrict any use of the information to criminally investigate or prosecute any alcohol or drug abuse patient.[facility] CenterIn the event this information is protected by the Federal Confidentiality of Alcohol and Drug Abuse Patient Records regulations: The Federal rules restrict any use of the information to criminally investigate or prosecute any alcohol or drug abuse patient.[facility] CenterIn the event this information is protected by the Federal Confidentiality of Alcohol and Drug Abuse Patient Records regulations: The Federal rules restrict any use of the information to criminally investigate or prosecute any alcohol or drug abuse patient.[facility] CenterIn the event this information is protected by the Federal Confidentiality of Alcohol and Drug Abuse Patient Records regulations: The Federal rules restrict any use of the information to criminally investigate or prosecute any alcohol or drug abuse patient.[facility] CenterIn the event this information is protected by the Federal Confidentiality of Alcohol and Drug Abuse Patient Records regulations: The Federal rules restrict any use of the information to criminally investigate or prosecute any alcohol or drug abuse patient.[facility] CenterIn the event this information is protected by the Federal Confidentiality of Alcohol and Drug Abuse Patient Records regulations: The Federal rules restrict any use of the information to criminally investigate or prosecute any alcohol or drug abuse patient.[facility] CenterIn the event this information is protected by the Federal Confidentiality of Alcohol and Drug Abuse Patient Records regulations: The Federal rules restrict any use of the information to criminally investigate or prosecute any alcohol or drug abuse patient.[facility] CenterIn the event this information is protected by the Federal Confidentiality of Alcohol and Drug Abuse Patient Records regulations: The Federal rules restrict any use of the information to criminally investigate or prosecute any alcohol or drug abuse patient.[facility] CenterIn the event this information is protected by the Federal Confidentiality of Alcohol and Drug Abuse Patient Records regulations: The Federal rules restrict any use of the information to criminally investigate or prosecute any alcohol or drug abuse patient.[facility] CenterIn the event this information is protected by the Federal Confidentiality of Alcohol and Drug Abuse Patient Records regulations: The Federal rules restrict any use of the information to criminally investigate or prosecute any alcohol or drug abuse patient.[facility] CenterIn the event this information is protected by the Federal Confidentiality of Alcohol and Drug Abuse Patient Records regulations: The Federal rules restrict any use of the information to criminally investigate or prosecute any alcohol or drug abuse patient.[facility] CenterIn the event this information is protected by the Federal Confidentiality of Alcohol and Drug Abuse Patient Records regulations: The Federal rules restrict any use of the information to criminally investigate or prosecute any alcohol or drug abuse patient.[facility] CenterIn the event this information is protected by the Federal Confidentiality of Alcohol and Drug Abuse Patient Records regulations: The Federal rules restrict any use of the information to criminally investigate or prosecute any alcohol or drug abuse patient.[facility] Reason for Visit (unrecogniz ed section and content) Reason Comments Physical Therapy Specialty Diagnoses / Procedures Referred By Gustavo salazar Referred To Contact [facility] Diagnoses Follow-up examination after colorectal surgery Procedures CONSULT TO PHYSICAL THERAPY PHYSICAL THERAPY EVALUATION HIGH COMPLEX [address] [place] [address] [place] [address] [facility] [place] [address] [place] [address] Referral ID Status Reason Start Date Expiration Date Visits Requested Visits Authorized [id number] Authorized Auto-Generat ed Referral 01/04/2022 11/05/2022 30 30 Reason Comments Refill Request dexlansoprazole Reason Comments Established Patient Follow-Up Reason Comments Post Op Reason Comments Established Patient Reason Comments Appointment for script refill Reason Comments Gastroparesis Reason Comments 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 Reason Comments Medication 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 PA for Dexil ant renewal Reason Comments Outside Labs Results Reason Comments Patient Question Reason Onset Date Comments Refill Request 05/30/2022 Reason Comments Post Op Reason Comments Medication Problem Medication 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 PA for Dexla nsoprazole Reason Comments Establish Care Follow up Reason Comments PAP Rx Faxed DME: [facility] Reason Comments Refill Request Reason Comments Orders SENT PATIENTS IRON R X Reason Comments Patient Update Reason Comments Preparations For Procedures Reason Comments Results - Sleep Study Reason Comments Anesthesia Consult Reason Comments SMART PILL RESULTS Reason Comments Is PA Needed for PAP Titration Reason Comments Constipation Reason Comments Vomiting Reason Comments Returning Nurse Call Reason Comments Heartburn Reason Comments Radio GI Main HB6 Specialty Diagnoses / Procedures Referred By Contac t Referred To Contact XR IMAGING Diagnoses Gastroesophageal reflux disease, unspecified whether esophagitis present Procedures XR ESOPHAGRAM W DOUBLE CONTRAST RADIOLOGIC EXAM ESOPHAGUS DOUBLE [place] [address] Xr Imaging Referral ID Status Reason Start Date Expiration Date V isits Requested Visits Authorized [id number] Closed Auto-Generate d Referral 11/17/2022 12/17/2023 1 1 Reason Comments Gastroparesis Reason Comments Schedule Procedure Reason Comments Appointment Pt has not arrived f or her 1 pm appointment Reason Comments Results Sigmoidoscopy result s; patient questions Reason Comments Refill Request Specialty Diagnoses / Procedures Referred By Contac t Referred To Contact CT IMAGING Diagnoses Periumbilical abdominal pain Procedures CT ABD/PEL W IVCON CT ABD & PELVIS W/[place] [address] [place] [address] Ct Imaging Referral ID Status Reason Start Date Expiration Date V isits Requested Visits Authorized [id number] Closed Auto-Generate d Referral 07/28/2022 11/05/2022 2 2 Reason Comments Urinary Retention Reason Comments Abdominal Pain Reason Comments Med Change Request Care Teams (unrecognized sec tion and content) Team Status: Active Member Role Status Dates Shannon Willams DO Primary Care Provider Active Team Status: Inactive Member Role Status Dates Shannon Willams DO Primary Care Provider Active Niecy Duron PA-C Attending Provider Active Group Exercise Class Instructor Relationship Specialty Start Date End Date Eliceo Willams Jr. [address] [place] [address] PCP - General Family Practice 10/14/20 Group Exercise Class Instructor Relationship Specialty Start Date End Date Eliceo Willams Jr. [address] [place] [address] PCP - General Family Practice 10/14/20 Group Exercise Class Instructor Relationship Specialty Start Date End Date Eliceo Willams Jr. [address] [place] [address] PCP - General Family Practice 10/14/20 Group Exercise Class Instructor Relationship Specialty Start Date End Date Eliceo Willams Jr. [address] [place] [address] PCP - General Family Practice 10/14/20 Group Exercise Class Instructor Relationship Specialty Start Date End Date Eliceo Willams Jr. [address] [place] [address] PCP - General Family Practice 10/14/20 Group Exercise Class Instructor Relationship Specialty Start Date End Date Eliceo Willams Jr. [address] [place] [address] PCP - General Family Practice 10/14/[address] [place] [address] Family Practice 03/14/22 Group Exercise Class Instructor Relationship Specialty Start Date End Date Eliceo Willams Jr. [address] [place] [address] PCP - General Family Practice 10/14/[address] [place] [address] Family Practice 03/14/22 Group Exercise Class Instructor Relationship Specialty Start Date End Date Eliceo Willams [place] [address] [place] [address] PCP - General Family Practice 10/14/[address] [place] [address] Family Practice 03/14/22 Group Exercise Class Instructor Relationship Specialty Start Date End Date DaliaEliceo Parish [address] [place] [address] PCP - General Family Practice 10/14/[address] [place] [address] Family Practice 03/14/22 Group Exercise Class Instructor Relationship Specialty Start Date End Date StephonEliceo vilchis Jr. [address] [place] [address] PCP - General Family Practice 10/14/[address] [place] [address] Family Practice 03/14/22 Group Exercise Class Instructor Relationship Specialty Start Date End Date StephonEliceo vilchis Jr. [address] [place] [address] PCP - General Family Practice 10/14/[address] [place] [address] Family Practice 03/14/22 Group Exercise Class Instructor Relationship Specialty Start Date End Date StephonEliceo vilchis [place] [address] [place] [address] PCP - General Family Practice 10/14/20 [facility] 03/14/22 Group Exercise Class Instructor Relationship Specialty Start Date End Date StephonEliceo vilchis Jr. [address] [place] [address] PCP - General Family Practice 10/14/20 Gwendolyn Stroud, AUTOMOTIVE SERVICE TECHNICIAN Family Practice 03/14/22 Group Exercise Class Instructor Relationship Specialty Start Date End Date Eliceo Willams Jr. [address] [place] [address] PCP - General Family Practice 10/14/20 Gwendolyn Stroud, AUTOMOTIVE SERVICE TECHNICIAN Family Practice 03/14/22 Group Exercise Class Instructor Relationship Specialty Start Date End Date Eliceo Willams Jr. [address] [place] [address] PCP - General Family Practice 10/14/20 Gwendolyn Stroud, AUTOMOTIVE SERVICE TECHNICIAN Family Practice 03/14/22 Group Exercise Class Instructor Relationship Specialty Start Date End Date Eliceo Willams Jr. [address] [place] [address] PCP - General Family Medicine 10/14/20 Gwendolyn Stroud, AUTOMOTIVE SERVICE TECHNICIAN Family Medicine 03/14/22 Group Exercise Class Instructor Relationship Specialty Start Date End Date Eliceo Willams Jr. [address] [place] [address] PCP - General Family Medicine 10/14/20 Gwendolyn Stroud, AUTOMOTIVE SERVICE TECHNICIAN Family Medicine 03/14/22 Group Exercise Class Instructor Relationship Specialty Start Date End Date Eliceo Willams Jr. [address] [place] [address] PCP - General Family Medicine 10/14/20 Gwendolyn Stroud, AUTOMOTIVE SERVICE TECHNICIAN Family Medicine 03/14/22 Group Exercise Class Instructor Relationship Specialty Start Date End Date Eliceo Willams Jr. [address] [place] [address] PCP - General Family Medicine 10/14/20 Gwendolyn Stroud CNP Family Medicine 03/14/22 Team Status: Inactive Member Role Status Henrietta Willams DO Primary Care Provider Active Annette Harris MD Attending Provider Active Group Exercise Class Instructor Relationship Specialty Start Date End Date Eliceo Willams Jr. [address] [place] [address] PCP - General Family Medicine 10/14/20 Gwendolyn Stroud, AUTOMOTIVE SERVICE TECHNICIAN [address] [place] [address] Family Medicine 03/14/22 Group Exercise Class Instructor Relationship Specialty Start Date End Date Eliceo Willams Jr. [address] [place] [address] PCP - General Family Medicine 10/14/20 Gwendolyn Stroud, KWESI [address] [place] [address] Family Medicine 03/14/22 Group Exercise Class Instructor Relationship Specialty Start Date End Date Eliceo Willams Jr. [address] [place] [address] PCP - General Family Medicine 10/14/20 Gwendolyn Stroud, AUTOMOTIVE SERVICE TECHNICIAN [address] [place] [address] Family Medicine 03/14/22 Group Exercise Class Instructor Relationship Specialty Start Date End Date Dalia Eliceo [place] Jr. [address] [place] [address] PCP - General Family Medicine 10/14/20 Gwendolyn Stroud CNP [address] [place] [address] Family Medicine 03/14/22 Group Exercise Class Instructor Relationship Specialty Start Date End Date Eliceo Willams Jr. [address] [place] [address] PCP - General Family Medicine 10/14/20 Gwendolyn Stroud CNP [address] [place] [address] Family Medicine 03/14/22 Group Exercise Class Instructor Relationship Specialty Start Date End Date Eliceo Willams Jr. [address] [place] [address] PCP - General Family Medicine 10/14/20 Gwendolyn Stroud CNP [address] [place] [address] Family Medicine 03/14/22 Group Exercise Class Instructor Relationship Specialty Start Date End Date Eliceo Willams Jr. [address] [place] [address] PCP - General Family Medicine 10/14/20 Gwendolyn Stroud CNP [address] [place] [address] Family Medicine 03/14/22 Group Exercise Class Instructor Relationship Specialty Start Date End Date Eliceo Willams Jr. [address] [place] [address] PCP - General Family Medicine 10/14/20 Gwendolyn Stroud CNP [address] [place] [address] Family Medicine 03/14/22 Group Exercise Class Instructor Relationship Specialty Start Date End Date Eliceo Willams Jr. [address] [place] [address] PCP - General Family Medicine 10/14/20 Gwendolyn Stroud CNP [address] [place] [address] Family Medicine 03/14/22 Group Exercise Class Instructor Relationship Specialty Start Date End Date Eliceo Willams Jr. [address] [place] [address] PCP - General Family Medicine 10/14/20 Gwendolyn Stroud CNP [address] [place] [address] Family Medicine 03/14/22 Group Exercise Class Instructor Relationship Specialty Start Date End Date Eliceo Willams Jr. [address] [place] [address] PCP - General Family Medicine 10/14/20 Gwendolyn Stroud CNP [address] [place] [address] Family Medicine 03/14/22 Team Status: Inactive Member Role Status Dates Shannon Willams , Primary Care Provider Active Annette Cartagena MD Attending Provider Active Group Exercise Class Instructor Relationship Specialty Start Date End Date Eliceo Willams Jr. [address] [place] [address] PCP - General Family Medicine 10/14/20 Gwendolyn Stroud CNP [address] [place] [address] Family Medicine 03/14/22 Group Exercise Class Instructor Relationship Specialty Start Date End Date Eliceo Willams Jr. [address] [place] [address] PCP - General Family Medicine 10/14/20 Gwendolyn Stroud CNP [address] [place] [address] Family Medicine 03/14/22 Group Exercise Class Instructor Relationship Specialty Start Date End Date Eliceo Willams Jr. [address] [place] [address] PCP - General Family Medicine 10/14/20 Gwendolyn Stroud CNP [address] [place] [address] Family Medicine 03/14/22 Group Exercise Class Instructor Relationship Specialty Start Date End Date Eliceo Willams Jr. [address] [place] [address] PCP - General Family Medicine 10/14/20 Gwendolyn Stroud CNP [address] [place] [address] Family Medicine 03/14/22 Group Exercise Class Instructor Relationship Specialty Start Date End Date Eliceo Willams Jr. [address] [place] [address] PCP - General Family Medicine 10/14/20 Gwendolyn Stroud CNP [address] [place] [address] Family Medicine 03/14/22 Group Exercise Class Instructor Relationship Specialty Start Date End Date Eliceo Willams Jr. [address] [place] [address] PCP - General Family Medicine 10/14/20 Gwendolyn Stroud CNP [address] [place] [address] Family Medicine 03/14/22 Group Exercise Class Instructor Relationship Specialty Start Date End Date Eliceo Willams Jr. [address] [place] [address] PCP - General Family Medicine 10/14/20 Gwendolyn Stroud CNP [address] [place] [address] Family Medicine 03/14/22 Group Exercise Class Instructor Relationship Specialty Start Date End Date Eliceo Willams Jr. [address] [place] [address] PCP - General Family Medicine 10/14/20 Gwendolyn Stroud CNP [address] [place] [address] Family Medicine 03/14/22 Team Status: Inactive Member Role Status Henrietta Willams , DO Primary Care Provider Active Anibal Valle , DO Emergency Provider Active Group Exercise Class Instructor Relationship Specialty Start Date End Date Eliceo Willams Jr. [address] [place] [address] PCP - General Family Medicine 10/14/20 Gwendolyn Stroud CNP [address] [place] [address] Family Medicine 03/14/22 Group Exercise Class Instructor Relationship Specialty Start Date End Date Eliceo Willams Jr. [address] [place] [address] PCP - General Family Medicine 10/14/20 Gwendolyn Stroud CNP [address] [place] [address] Family Medicine 03/14/22 Group Exercise Class Instructor Relationship Specialty Start Date End Date StephonjerometomasaEliceo Jr. [address] [place] [address] PCP - General Family Medicine 10/14/20 Gwendolyn Stroud CNP [address] [place] [address] Family Medicine 03/14/22 Group Exercise Class Instructor Relationship Specialty Start Date End Date Eliceo Willams Jr., DO [address] [place] [address] PCP - General Family Medicine 10/14/20 Gwendolyn Stroud CNP [address] [place] [address] Family Medicine 03/14/22 Group Exercise Class Instructor Relationship Specialty Start Date End Date Eliceo Willams Jr., DO [address] [place] [address] PCP - General Family Medicine 10/14/20 Gwendolyn Stroud, KWESI [address] [place] [address] Family Medicine 03/14/22 Goals (unrecognized section and content) Goals may be documented in a n alternate section Scheduled Active and Recently Administ ered Medications (unrecognized section and content) Medication Order 08/10/2023 08/11/2023 08/12/2023 Acetaminophen (OFIRMEV) IVPB 1,000 mg (COMPLETED) 1,000 mg, Intravenous, Administer over 15 Minutes, On 08/12/23 at 0632, ONCE, 1 dose 0614 (New Bag - Prov ider: Jaren Hare RN)0633 (Stopped - Provider: Monserrat Scales RN) aluminum-magnesium hydroxide 200-200 MG/5ML suspension 30 mL (COMPLETED)(Linked Group 1) 30 mL, Oral, ONCE, 1 dose, On 08/12/23 at 0738 0734 (Given - Provid er: Avelino Scott RN) Famotidine (PF) (PEPCID) injection 20 mg (COMPLETED) 20 mg, IV Push, Administer over 2 Minutes, ONCE, 1 dose, On 08/12/23 at 0459 0438 (Given - Provid er: Jaren Hare RN) hyoscyamine (LEVSIN) 0.125 MG/5ML elixir 250 mcg (COMPLETED)(Linked Group 1) 250 mcg, Oral, Once, 1 dose, On 08/12/23 at 0738 0734 (Given - Provid er: Avelino Scott RN) LOCM iohexol (OMNIPAQUE 300 MG/ML) injection 100 mL (COMPLETED) 100 mL, Intravenous, ONCE, 1 dose, On 08/12/23 at 0539, Radiology 0540 (Given - Provid er: SAULO Morrison) Morphine Sulfate injection 4 mg (COMPLETED) 4 mg, IV Push, NOW, 1 dose, On 08/12/23 at 0459, Caution: This medication looks and/or sounds like another medication. 0439 (Given - Provid er: Jaren Hare RN) ondansetron hcl (ZOFRAN) injection 4 mg (COMPLETED) 4 mg, IV Push, NOW, 1 dose, On 08/12/23 at 0459, Caution: This medication looks and/or sounds like another medication. 0438 (Given - Provid er: Jaren Hare RN) sodium chloride 0.9% bolus 0.9 % solution 1,000 mL (COMPLETED) 1,000 mL, Intravenous, Administer over 31 Minutes, On 08/12/23 at 0459, ONCE, 1 dose 0437 (New Bag - Prov ider: Jaren Hare RN)0508 (Stopped - Provider: Jaren Hare RN) Linked Groups Order Group 1: aluminum-magnesium hydroxide 200-200 MG/5ML suspension 30 mL (COMPLETED)Jump to med 30 mL, Oral, ONCE, 1 dose, On 08/12/23 at 0738 And hyoscyamine (LEVSIN) 0.125 MG/5ML elixir 250 mcg (COMPLETED)Jump to med 250 mcg, Oral, Once, 1 dose, On 08/12/23 at 0738 FOR RECORDS PERTAINING TO PATIENTS WHO ARE OR HAVE BEEN ENROLLED IN A CHEMICAL DEPENDENCY/SUBSTANCEABUSE PROGRAM, SOME INFORMATION MAY BE OMITTED. This clinical summary was aggregated from multiple sources. Caution should be exercised in using it in the provision of clinical care. This summary normalizes information from multiple sources, and as a consequence, information in this document may materially change the coding, format and clinical context of patient data. In addition, data may be omitted in some cases. CLINICAL DECISIONS SHOULD BE BASED ON THE PRIMARY CLINICAL RECORDS. [employer] [facility]. provides no warranty or guarantee of the accuracy or completeness of information in this document.
== END 2023-10-25 09:02 | disposition home or self-care (01) ==
LOC: RAD 09:01
PROVIDERS: PCP Family Medicine; Visit Provider Podiatrist Foot & Ankle Surgery
DX: M19.071 Primary osteoarthritis, right ankle and foot (principal)
CPT/HCPCS: 73630

== ENCOUNTER 2023-10-29 06:33 | Emergency (ER) | payer OTHER, SELFPAY ==
[2023-10-29 06:42] VITALS: BP 154/95; PULSE 59; RESP 16; TEMP 35.7; O2SAT 100; BMI 27.5
--- OUTSIDE RECORDS SUMMARY | 2023-10-29 06:42 | XMS_ITS | CCD ---
Author Name Unknown Address [address] [place] [address] Organization [facility] Care Team Providers Care Vitamin Manager Name Role Phone PARISH WILLAMS Primary Care Unavailable Eliceo Willams Jr. Primary Care Provider Yaniv Stroudcie Unavailable Maximus OROSCO, Gwendolyn Unavailable Annette Harris Unavailable Tita Daugherty Unavailable Erica Kingston Unavailable Eliceo Willams Unavailable Unavailable Unavailable Allison Arita Unavailable Eliceo Willams Jr. Primary Care Provider Maximus OROSCO, Gwendolyn Unavailable Eliceo Willams Unavailable DO Shannon Willams Primary Care Provider [phone] MD Annette Harris Attending Provider Eliceo Willams Jr. Primary Care Provider Maximus OROSCO, Gwendolyn Unavailable [phone] Annette Cartagena Unavailable MD Annette Cartagena Attending Provider WINSTON HANNAH Attending Unavailable WINSTON HANNAH Referring Unavailable ELICEO WILLAMS JR Primary Care Unavail able ISRA MASTERS Attending Unavailable ISRA MASTERS Referring Unavailable ELICEO WILLAMS JR Primary Care Unavail able DO Shannon Willams Primary Care Provider [phone] LORRAINE Duron Attending Provider JEM ., DR BAEZA Consulting Unavailable KAFTAN, DR Isatu LUGO Primary Care Unavailable HAY ., DR BAEZA Admitting Unavailable HAY ., DR BAEZA Attending Unavailable SALMA AMEZQUITA Consulting Unavailable HIGHLANDER, SADE Kenny Consulting Unavailable HIGHLANDER, SADE Kenny Attending Unavailable HIGHLANDER, SADE Kenny Admitting Unavailable KAFTAN, DR Isatu LUGO Primary Care Unavailable SHERLYN HOLLINGSWORTH Consulting Unavailable HIGHLANDER, SADE Kenny Attending Unavailable [...] Unavailable ZIEBER, DR ZAIDA Ellis Consulting Unavailable HIGHLROBERTA, SADE Kenny Consulting Unavailable KAREEM, NIECY Attending Unavailable KAREEM, NIECY Admitting Unavailable KAFTAN, DR Isatu LUGO Primary [...] Primary Care Unavailable KAREEM, NIECY Consulting Unavailable JENNIFER GARCIA Attending Unavailable HAY ., DR BAEZA Consulting Unavailable JENNIFER GARCIA Admitting Unavailable KAFTAN, DR Isatu LUGO Primary Care Unavailable JENNIFER GARCIA Consulting Unavailable HIGHLANDER, SADE Kenny Consulting Unavailable TANI ., CHASITY Attending Unavailable KAFTAN, DR G PARISH Primary Care Unavailable TANI ., CHASITY Admitting Unavailable NICKI BUTT Unavailable TANI ., CHASITY Consulting Unavailable LORRI TRIPLETT Unavailable DALIA, DR Isatu LUGO Primary Care Unavailable ELIAS ., DR ELDER Rios Admitting Unavailable ELIAS ., DR ELDER Rios Attending Unavailable ELIAS ., DR ELDER Rios Consulting Unavailable WEST, DR NICKI Gale Consulting Unavailable SADE WILDE Consulting Unavailable EDUARDO ., NANCY LAMA Consulting Unavailable TORRESBUSDAWNA Consulting Unavailable HIGHLSADE GRANADOS Consulting Unavailable SADE WILDE Attending Unavailable SADE IWLDE Admitting Unavailable KALEIGHA, DR Isatu LUGO Primary Care Unavailable DALIA, DR Isatu LUGO Primary Care Unavailable PAY ., DR MCDONALD Attending Unavailable PAY ., DR MCDONALD Admitting Unavailable PAY ., DR MCDONALD Consulting Unavailable NIECY DURON Attending Unavailable NIECY DURON Admitting Unavailable DALIA, DR Isatu LUGO Primary Care Unavailable ZICLARISAER, DR ZAIDA Ellis Consulting Unavailable NIECY DURON Unavailable DO Anibal Valle Emergency Provider [phone] Unavailable Unavailable Annette Harris Attending Unavailable Shannon Willams Primary Care Unavailable Annette Harris Admitting Unavailable OleAnnette wallace Admitting Unavailable Annette Cartagena Attending Unavailable Shannon Willams Primary Care Unavailable [...] arben Willams Jr., Eliceo LOAIZA Primary Care [facility] WINSTON HANNAH Referring Unavailable ELICEO WILLAMS JR Primary Care Unavail able KAJEROMEAN ELICEO Primary Care Unavail able NELSY CHÁVEZ Attending Unavailable DALIA JENKINS, ELICEO LUGO Primary Care Unavail able PAM WANG Attending Unavailable DALIA JENKINS, ELICEO LUGO Primary Care Unavail able PAM WANG Referring Unavailable JAIRON LAI Attending Unavailable STEPHONLEIGHA JENKINSELICEO Primary Care Unavail able YONI TUTTLE Attending Unavailable STEPHONLEIGHA JENKINS, ELICEO LUGO Primary Care Unavail able DORIS ARIAS Attending Unavailable STEPHONLEIGHA JENKINS, ELICEO LUGO Primary Care Unavail able PAM WANG Attending Unavailable PAM WANG Referring Unavailable ELICEO WILLAMS JR Primary Care Unavail able KALEIGHA JENKINS, ELICEO LUGO Primary Care Unavail able MASTERSISRA Rios S Attending Unavailable DALIA JENKINS, ELICEO LUGO Primary Care Unavail able MARY OBRIEN Attending Unavailable MARY OBRIEN Referring Unavailable WINSTON HANNAH Attending Unavailable DALIA JENKINSELICEO Primary Care Unavail able WINSTON HANNAH Referring Unavailable WENDYTOMASA ELICEO JENKINS Primary Care Unavail able DALIA JENKINS, ELICEO LUGO Primary Care Unavail able MASTERSISRA Rios S Attending Unavailable DALIA JENKINSELICEO Referring Unavail able MASTERSISRA Rios Referring Unavailable DALIA JENKINSELICEO Primary Care Unavail able WINSTON HANNAH Attending Unavailable DALIA JENKINSELICEO Primary Care Unavail able MASTERSISRA Rios S Referring Unavailable WINSTON HANNAH Referring Unavailable DALIA JENKINSELICEO Primary Care Unavail able WINSTON HANNAH Attending Unavailable DALIA JENKINSELICEO Primary Care Unavail able PAULINE CHRISTENSEN Attending Unavailable ELICEO WILLAMS JR Referring Unavailable ELICEO WILLAMS JR Primary Care Unavailable ELICEO WILLAMS Attending Unavailable ELICEO WILLAMS Attending Unavailable ELICEO WILLAMS Referring Unavailable EAGLE LEE Attending Unavailable ELICEO WILLAMS Referring Unavailable RON KING Attending Unavailable ELICEO WILLAMS Referring Unavailable EAGLE LEE Referring Unavailable GIANA MORALES Attending Unavailable CARMEN DORSEY Attending Unavailable CARMEN DORSEY Attending Unavailable ANNETTE SWANSON Attending Unavailable CARMEN DORSEY Attending Unavailable SIOMARA MONTAGUE Referring Unavailable MATTEO QUINONES Attending Unavailable CARMEN DORSEY Attending Unavailable CARMEN DORSEY Attending Unavailable CARMEN DORSEY Attending Unavailable KAILA, CARMEN Attending Unavailable KAILA, CARMEN Attending Unavailable KAILA, CARMEN Attending Unavailable LUCÍA, RADHA Attending Unavailable LUCÍA, RADHA Attending Unavailable KAILA, CARMEN Attending Unavailable ALIE, ANNETTE Attending Unavailable ANDREW, GIANA Attending Unavailable KAILA, CARMEN Attending Unavailable ENIX, DEB Referring Unavailable SIOMARA MONTAGUE Attending Unavailable ALIE, ANNETTE Attending Unavailable KAILA, CARMEN Attending Unavailable ANDREW, GIANA Attending Unavailable ANDREW, GIANA Attending Unavailable KAILA, CARMEN Attending Unavailable KAILA, CARMEN Attending Unavailable SWANSON, ANNETTE Attending Unavailable ANDREW, GIANA Attending Unavailable Allergies Allergy Classification Reported Allergen(s) Allergy Type Date of Onset Reaction(s) Facility (20 sources) risperiDONE; Translations: [RisperDAL TABS] Drug Allergy 0 Intolerance [facility] (1 source) oxyCODONE Drug Allergy [facility] (1 source) risperiDONE Drug Allergy [facility] (1 source) risperiDONE Drug Allergy 3 [facility] Repository (3 sources) POISON LAITH EXTRACT; Translations: [POISON LAITH EXTRACT] Drug Allergy 3 Rash [facility] (1 source) POISON LAITH; Translations: [POISON LAITH] Propensity to adverse reactions to drug (disorder) 2 [facility] Repository Medications Current Medications Medication Drug Class(es) [...] 1 tablet by mouth every twelve hours [id number] actuat albuterol 0.09 mg/actuat metered dose [...] Comment on above: inhale 2 puffs by [facility] INTO THE LUNGS every 4 hours if needed alendronic acid 70 mg oral tablet (1 source) Bisphosphonate Start: take 1 tablet by mouth every week Alendronate (Fosamax) 70 mg Tablet Active 70 MG PO every week June 05, 2023 12:00am cholecalciferol 0.05 mg oral capsule (20 sources) Vitamin D Start: 023 take 1 capsule by mouth once daily [...] 2023 12:00am eszopiclone 3 mg oral tablet (9 sources) Start: 06-05-2023 take 1 tablet by mouth once daily as needed eszopiclone (LUNESTA) 3 MG TABS Take 1 tablet by mouth nightly as needed. At bedtime 0 08/02/2023 Active famotidine 40 mg oral tablet (7 sources) Histamine-2 Receptor Antagonist Start: 08-12-2023 End: [...] 1 puff(s) by in halation once daily vablquipppe-eatywubat-gqoykufq (TRELEGY ELLIPTA) 100-62.5-25 mcg Inhale 1 Puff as instructed once daily. 0 Active take 1 puff(s) by in halation once daily Trelegy Ellipta 100-62.5-25 MCG/INH 1 pu ff Inhalation Once a day Not-Taking Comment on above: Inhale 1 Puff as ins tructed once daily. inulin 200 mg / lactobacillus rhamnosus gg [id number] unt oral capsule (1 source) Start: End: take 1 capsule by mouth once daily lactobacillus rhamnosus (CULTURELLE) 10 billion cell -200 mg capsule Take 1 capsule by mouth once daily. 30 capsule 0 06/07/2022 07/07/2022 Active Comment on above: Take 1 capsule by [facility] once daily. iv contrast (will be provided with radiology test) (2 sources) Start: End: iv contrast (will be provided with radiology [...] link. ketorolac tromethamine 10 mg oral tablet (20 sources) Nonsteroidal Anti-inflammatory Drug, Cyclooxygenase Inhibitor Start: ketorolac (TORADOL) 10 MG tablet Take at onset of migraine, may take up to 2 times a day. No more than 1-2 a week 0 04/17/2023 Active Start: 02-01-2020 Toradol per 15 mg Jan, 60 mg LORazepam 1 mg oral tablet (10 sources) Benzodiazepine Start: 07-19-2023 take 1 tablet [...] Active ondansetron 4 mg disintegrating oral tablet (19 sources) Serotonin-3 Receptor Antagonist Start: 08-12-2023 take [...] hrs as needed for 4 days May, Not-Taking/PRN oxyCODONE hydrochloride 5 mg oral tablet (4 [...] 20 mg oral tablet (10 sources) Start: take 1 tablet by mouth every twelve hours ramelteon 8 mg oral tablet (16 sources) Melatonin Receptor Agonist Start: 2 End: 3 take 1 tablet by mouth once daily at bedtime ramelteon (ROZEREM) 8 mg tablet Take 1 tablet by mouth daily at bedtime. 30 tablet 2 10/14/2022 11/21/2022 Discontinued Comment on above: Take 1 tablet by yancy th daily at bedtime. rOPINIRole 1 mg oral tablet (20 sources) Nonergot Dopamine Agonist Start: 3 take 1 tablet by mouth once daily [...] twice daily. Take 1 tablet by yancy twice daily. traMADol hydrochloride 50 mg oral [...] Start: 03-04-2022 take 4 tablets by mo [facility] once daily at bedtime traZODone (DESYREL) 50 mg tablet Take 200 mg by mouth daily at bedtime. 0 03/04/2022 Active Start: 03-04-2022 take 3 tablets by mo [facility] once daily at bedtime traZODone (DESYREL) 50 mg tablet Take 150 mg by mouth daily at bedtime. 0 03/04/2022 Active Start: 11-02-2018 End: 12-19-2018 Trazodone Discontinued TABLE T November 02, 2018 1:00am December 19, 2018 1:17pm Start: 11-02-2018 End: 12-19-2018 Trazodone Discontinued TABLE T November 02, 2018 1:00am December 19, 2018 1:17pm take 2 tablets by mo [facility] at bedtime traZODone HCl - 100 MG Oral Tablet TAKE 2 TABLETS AT BEDTIME. Quantity: 0 Refills: 0 Ordered: 13-Jun-2023 DO Active take [facility] traZODone HCl - 150 MG [...] Comment on above: Take 2 tablets by [facility] every 6 hours as needed for pain. acetaminophen 250 mg / aspirin 250 mg / caffeine 65 mg oral tablet (4 sources) Platelet Aggregation Inhibitor, Nonsteroidal Anti-inflammatory Drug, Central Nervous System Stimulant, Methylxanthine Start: 09-13-20 End: 10-01-20 18 take 1 tablet by mouth every four to six hours Aspirin-Acetaminophe n-Caffeine (Excedrin Migraine) 250-250-65 mg Tablet Discontinued 1 - 2 TAB PO EVERY 4-6 HOURS September 13, 2017 1:00am October 01, 2018 10:40am ALPRAZolam 1 mg oral tablet (4 sources) Benzodiazepine Start: 09-13-20 End: 10-01-20 18 take 1 tablet by mouth three times daily Alprazolam Discontinued 1 TAB PO Three times daily September 13, 2017 1:00am October 01, 2018 10:40am amitriptyline hydrochloride 25 mg oral tablet (4 sources) Tricyclic Antidepressant Start: 02-18-20 End: 06-05-20 take 125 mg by mouth once daily Amitriptyline Discontinued 125 MG PO Daily February 18, 2020 12:00am June 05, 2023 10:13am ARIPiprazole 30 mg oral tablet (20 sources) Atypical Antipsychotic Start: 09-27-20 take 1 tablet by mouth once daily [...] tablet (20 sources) HMG-CoA Reductase Inhibitor Start: 03-10-20 take 1 tablet by mouth once daily atorvastatin (LIPITOR) 20 mg tablet Take 20 mg by mouth once daily. 0 03/10/2022 Active Comment on above: Take 20 mg by mouth once daily. brexpiprazole 3 mg oral tablet (4 sources) Atypical Antipsychotic Start: 02-18-20 End: 06-05-20 take 1 tablet by mouth once daily Brexpiprazole (Rexulti) 3 mg Tablet Discontinued 3 MG PO Daily February 18, 2020 12:00am June 05, 2023 10:13am 12 hr carBAMazepine 400 mg extended release oral tablet (20 sources) Mood Stabilizer Start: 09-28-20 End: 11-17-19 take 1 tablet by mouth every twelve [...] mg by mouth q 12 HR. cefTRIAXone (19 sources) Cephalosporin Antibacterial Start: 07-14-20 16 Rocephin 500 mg Jul, 500 mg celecoxib 200 mg oral capsule (4 sources) Nonsteroidal Anti-inflammatory Drug Start: 06-18-20 19 End: 02-18-20 20 take 1 tablet by mouth once daily Celecoxib Discontinued 1 TAB PO Daily June 18, 2019 12:00am February 18, 2020 10:25am cephalexin 500 mg oral capsule (4 sources) Cephalosporin Antibacterial Start: 09-20-20 17 End: 10-01-20 18 take 1 capsule by mouth every eight hours Cephalexin (Keflex) 500 mg capsule Discontinued 500 MG PO Q8H 21 September 20, 2017 1:00am October 01, 2018 10:40am cetirizine hydrochloride 5 mg oral tablet (4 sources) Histamine-1 Receptor Antagonist Start: 10-15-20 18 End: 12-19-19 19 Cetirizine Discontinued 1 TAB PO As Directed October 15, 2018 1:00am December 19, 2018 1:13pm clonazePAM 0.5 mg oral tablet (20 sources) Benzodiazepine take 1 tablet by mouth every twenty-four hours KlonoPIN 0.5 MG 1 tablet at bedtime Orally Once a day Not-Taking/PRN take 0.5 mg by mouth twice daily clonazePAM (KLONOPIN) 1 mg tablet Take 0.5 mg by mouth twice daily. 0 Active Comment on above: Take 0.5 mg by mouth twice daily. CPAP/BIPAP/OTHER (20 sources) Start: 12-29-2022 End: 01-10-2023 CPAP/BIPAP/OTHER Type .CPAPSettings into a note to [...] mg oral tablet (20 sources) Muscle Relaxant Start : 09-13 End: 10-01 take 3 tablets by mouth once daily [...] capsule (20 sources) Proton Pump Inhibitor Start: 2020 End: 2022 take 1 capsule by mouth before breakfast Dexlansoprazole 60 mg CpDM Indications: Gastroesophageal reflux disease, unspecified whether esophagitis present take 1 capsule by mouth before breakfast 30 capsule 5 04/11/2023 Active Comment on above: take 1 capsule by mo ut[facility] every morning BEFORE BREAKFAST take 1 capsule by mo ut[facility] before breakfast docusate sodium 50 mg / sennosides, longterm 8.6 mg oral tablet (4 sources) Start: 2016 End: 2017 take 2 tablets by mouth twice daily Sennosides-Docusate Sodium (Dok Plus) 8.6-50 mg Tablet Discontinued 2 TAB PO Twice daily 40 September 20, 2017 1:00am October 01, 2018 10:42am estradiol 1 mg oral tablet (4 sources) Estrogen Start: 2018 End: 2019 take 1 tablet by mouth once daily Estradiol Discontinued 1 TAB PO Daily June 19, 2019 12:00am February 18, 2020 10:25am 24 hr fexofenadine hydrochloride 180 mg / pseudoephedrine hydrochloride 240 mg extended release oral tablet (4 sources) alpha-Adrenergic Agonist, Histamine-1 Receptor Antagonist Start: 2018 End: 2018 take 1 tablet by mouth once daily in the morning, then take 1 tablet by mouth every twenty-four hours Fexofenadine-Pseudoeph edrine (Ember-D 24 Hour) 180-240 mg Tablet Extended Release 24 Hr Discontinued 1 TAB PO Every morning December 19, 2018 1:00am June 18, 2019 3:04pm fluconazole 150 mg oral tablet (4 sources) Azole Antifungal Start: 2019 End: 2022 Fluconazole (Diflucan) 150 mg tablet Discontinued 150 MG PO Once 1 February 18, 2020 12:00am June 05, 2023 10:13am take one PO, if still symptomatic then take another pill in 72 hrs fluticasone propionate 0.05 mg/actuat metered dose nasal spray (20 sources) Corticosteroid Start: 2017 End: 2022 Fluticasone Propionate (Flonase Allergy Relief) 50 mcg/actuation [place],Suspension Discontinued 2 SPRAY INTRANASAL Daily October 15, 2018 1:00am June 18, 2019 3:04pm Comment on above: Use 1 [place] in each nostril once daily. Fluticasone Propion-Salmeterol (8 sources) Corticosteroid, beta2-Adrenergic Agonist Start: 2018 End: 2022 take 1 puff(s) by inhalation twice daily [...] 2:04pm 1.5 ml fremanezumab-vfrm 150 mg/ml auto-injector (12 sources) Start: 07-19-2023 AJOVY AUTOINJE CTOR 225 mg/1.5 mL auto-injector inject 1 AND 1/2 milliliters subcutaneously every 28 DAYS 0 07/19/2023 Active Start: 06-05-2023 Fremanezumab-V frm (Ajovy Autoinjector) 225 mg/1.5 mL auto-injector Active 225 MG SUBCUT every month June 05, 2023 12:00am Comment on above: inject 1 AND 1/2 mil liliters subcutaneously every 28 DAYS 1 ml galcanezumab-gnlm 120 mg/ml prefilled syringe (20 sources) galcanezumab-gnl m (EMGALITY SYRINGE) 120 mg/mL syringe Inject subcutaneously once every month. Do not shake. 0 Active Comment on above: Inject subcutaneousl y once every month. Do not shake. hydrOXYzine hydrochloride 50 mg oral tablet (8 sources) Antihistamine Start: 020 End: 023 take 50 mg by mouth once daily [...] as needed for pain. lactobacillus rhamnosus gg [id number] unt oral capsule (20 sources) Start: 06-09-2022 [...] Discontinued Start: 12-27-2021 take 1 capsule by [facility] once daily lactobacillus rhamnosus (CULTURELLE) 10 billion cell capsule Take 1 capsule by mouth once daily. 30 capsule 0 12/27/2021 Active Comment on above: Take 1 capsule by [facility] once daily. lamoTRIgine 200 mg oral tablet [...] Once a day for 6 days May, Not-Taking/PRN metroNIDAZOLE 500 mg oral tablet (13 sources) [...] 15 mg oral tablet (4 sources) Start: End: take 2 tablets by mouth once daily Mirtazapine (Remeron) 15 mg Tablet Discontinued 30 MG PO Daily December 19, 2018 1:00am February 18, 2020 10:26am montelukast 10 mg oral tablet (4 sources) Leukotriene Receptor Antagonist Start: End: take 10 mg by mouth once daily in the evening Montelukast Discontinued 10 MG PO Every evening October 01, 2018 1:00am December 19, 2018 1:14pm 1 ml morphine sulfate 4 mg/ml cartridge (1 source) Opioid Agonist Start: End: Morphine Sulfate injection 4 mg neomycin sulfate 500 mg oral tablet (10 sources) Aminoglycoside Antibacterial Start: neomycin 500 mg tablet Indications: Follow-up examination after colorectal surgery Take 2 tablets by mouth as directed. Take 2 tablet at 6pm, 7pm, and 11pm the evening prior to surgery. 6 tablet 0 02/09/2022 Active Comment on above: Take 2 tablets by mo [facility] as directed. Take 2 tablet at 6pm, 7pm, and 11pm the evening prior to surgery. nitrofurantoin, macrocrystals 25 mg / nitrofurantoin, monohydrate 75 mg oral capsule (7 sources) Nitrofuran Antibacterial Start: End: take 1 capsule by mouth twice daily at mealtime Nitrofurantoin Monohyd/M-Cryst (Macrobid) 100 mg capsule Discontinued 100 MG PO Twice daily 10 February 18, 2020 12:00am June 05, 2023 10:13am must administer with a meal/food Comment on above: Take 1 capsule by [facility] twice daily. nystatin [id number] unt/ml topical cream (20 sources) Polyene Antifungal Start: 022 End: 023 nystatin (MYCOSTATIN) cream Indications: Yeast infection of the skin Apply 1 application to affected area twice daily. 30 g 0 02/08/2022 11/17/2022 Discontinued Start: 11-29-2020 take 4 mL by mouth four times daily Start: 11-29-2020 Comment on above: Apply 1 application to affected area twice daily. omeprazole 40 mg delayed release oral capsule (17 sources) Proton Pump Inhibitor Start: 7 End: take 40 mg by mouth twice daily [...] June 05, 2023 10:13am polyethylene glycol 3350 15164 mg powder for oral solution (3 sources) [...] Comment on above: take 1 tablet [facility] once daily psyllium 520 mg oral capsule (3 sources) Start: 12-27-2021 End: 02-08-2022 psyllium Husk (METAMUCIL) 0.52 gram capsule Take 1 capsule by mouth as directed. As needed for constipation 0 12/27/2021 02/08/2022 Discontinued (Course of therapy completed) Comment on above: Take 1 capsule by mo [facility] as directed. As needed for constipation [...] on above: Take 2 tablets by mo [facility] three times daily as needed. 50 ml sodium chloride 9 mg/ml injection (1 source) Start: 08-12-2023 End: 08-12-2023 sodium chloride 0.9% bolus 0.9 % solution 1,000 mL sulfamethoxazole 800 mg / trimethoprim 160 mg oral tablet (1 source) Dihydrofolate Reductase Inhibitor Antibacterial, Sulfonamide Antimicrobial Start: 09-27-2023 End: 09-30-2023 take 1 tablet by mouth twice daily sulfamethoxazole- trimethoprim (BACTRIM DS) 800-160 mg per tablet Indications: [...] hours as needed. Trelegy Ellipta 100-62.5-25 MCG/INH (11 sources) take 1 puff(s) by inhalation once daily as needed Trelegy Ellipta 100-62.5-25 MCG/INH 1 puff Inhalation Once a day Not-Taking/PRN take 1 puff(s) by inhalation onc e daily Trelegy Ellipta 100-62.5-25 MCG/INH 1 puff Inhalation Once a day Not-Taking triamcinolone acetonide 40 mg/ml injectable suspension (20 sources) Corticosteroid Start: 09-14-2022 Kenalog-40 Oct, 40 mg Start: 08-19-2021 KENALOG - 10 m g 14 Aug, 2021 10 mg vitamin b12 1 mg oral tablet (20 sources) Vitamin B12 take 1 tablet by mouth once daily cyanocobalamin (VITAMIN B-12) 1,000 mcg tab Take 1,000 mcg by mouth once daily. 0 Active Comment on above: Take 1,000 mcg by [facility] once daily. vortioxetine 10 mg oral tablet (20 sources) End: take 1 tablet by mouth once daily [...] sources) Asthma; Translations: [Unspecified asthma, uncomplicated] Onset: 10-15-2010-15-2021 Chronic Attention-deficit, conduct, and disruptive behavior disorders [...] Translations: [Gastro-esophageal reflux disease without esophagitis] Onset: 10-15-20 21 10-15-2021 Chronic Essential hypertension (20 sources) Hypertensive disorder; Translations: [Essential (primary) hypertension] Onset: 03-08-2010-08-2020 Chronic Fluid and electrolyte disorders (1 source) Dehydration; Translations: [DEHYDRATION] Onset: 03-08-20 Episodic Gastrointestinal hemorrhage (3 sources) Gastrointestinal hemorrhage; Translations: [Hemorrhage of gastrointestinal tract, unspecified] Episodic Genitourinary symptoms and ill-defined conditions (5 sources) Incomplete emptying of bladder; Translations: [Retention of urine, unspecified] 07-31-2023 Episodic Headache; including migraine (2 sources) Migraine, unspecified, not intractable, without status migrainosus; Translations: [Other migraine, not intractable, without status migrainosus] Onset: 10-23-20 Chronic Headache; including migraine (4 sources) Headache; [...] I disorder; Translations: [Bipolar disorder, unspecified] Onset: 09-13-2010-08-2020 Chronic Mycoses (2 sources) Candidiasis of skin; [...] 11-03-20 Chronic Other aftercare (1 source) Other terminal superintendent (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; Translations: [OTH CORRECTION CURRENT DRUG THERAPY] Onset: 03-08-20 Episodic Other [...] diseases of the digestive system] Episodic Other hematologic conditions (3 sources) Raised [...] Translations: [Overweight] Episodic Other upper respiratory disease (17 sources) Sinusitis; Translations: [Allergic rhinitis, unspecified] Chronic Other upper respiratory disease (1 source) Allergic rhinitis, unspecified Onset: 05-10-20 Resolved : 05-10-20 Chronic Other upper respiratory infections (4 sources) Upper respiratory infection; Translations: [Acute upper respiratory infection, unspecified] 09-24-2017 Episodic Personality disorders (2 sources) Borderline personality disorder; Translations: [Borderline personality disorder] Onset: 04-10-20 Chronic Residual codes; unclassified (20 sources) Obstructive [...] Audio/video Visit; Translations: [Telehealth Audio/video Visit] Onset: 06-08-20 23 Urinary tract infections (20 sources) Urinary tract [...] 04-05-2022 Episodic Other gastrointestinal disorders (2 sources) Constipation, unspecified; Translations: [Constipation, unspecified] Onset: 07-25-2023 Episodic Other gastrointestinal disorders (2 sources) Diarrhea, unspecified; Translations: [Diarrhea, unspecified] Onset: 07-25-2023 Episodic Other nervous system disorders (20 sources) [...] Results Test Name Value Interpretation Reference Range Facility US GALLBLADDERon 10-27-2023 US GALLBLADDER EXAMINATION: US GALLBLADDER HISTORY: RUQ pain, nausea COMPARISON: CT abdomen pelvis April 13, 2023 TECHNIQUE: Ultrasound evaluation was performed of the right upper quadrant of the abdomen FINDINGS: Increased echogenicity of the liver. Normal contour of the liver no liver lesion or intrahepatic biliary dilatation identified. Liver length measured at approximately 15.9 cm. The gallbladder is physiologically distended. No cholelithiasis or pericholecystic fluid. Gallbladder wall thickness is measured at approximately 3.6 mm. Common bile duct is normal measuring approximately 1.8 mm in diameter. No overt abnormality of the pancreas. IMPRESSION: Hepatic steatosis. Nonspecific mild thickening of the gallbladder wall without cholelithiasis or pericholecystic fluid to suggest acute cholecystitis by ultrasound. ELECTRONICALLY SIGNED BY: Parish Denny, DO Normal Not Available Documentationon 10-12-2023 Documentation [id number] Darrian Leal 1970 F Date Provider Department Center 10/12/2023 KarliGIANA MORALES [facility] Gerardo Heal No family history on file Normal [facility] CNOVon 10-10-2023 CNOV Office Visit (SHERON ) ----- MARY LEAL ([id number]) 1970 F Date Time Provider Department 10/10/23 [...] PFSH obtained by others. Pam Wang MD Skin Former offered: Patient declines. OBJECTIVE: BP 102/60 General: [...] would like to move forward with PNE. LightArrow packet given to patient today to review. [...] which included preparing to see the patient, [id number] patient care, completing clinical (more content not included)... Normal [facility] XR CHEST 2 VIEWSon 3 XR CHEST 2 VIEWS FINDINGS: Comparison, June 09, 2021. Intervertebral disc space device again identified lower cervical spine. Cardiopericardial silhouette normal. Pulmonary vasculature normal. Lungs clear. IMPRESSION: Impression: No acute cardiopulmonary disease. ELECTRONICALLY SIGNED BY: Rigo Strauss MD Normal Not Available Orders Onlyon 09-19-2023 Orders Only [id number] Darrian Leal 1970 F Date Provider Department Center 09/19/2023 GIANA JAMES [facility] Gerardo Heal No family history on file Normal [facility] CNPNon 09-12-2023 CNPN Telephone (WHQ) ----- MARY LEAL ([id number]) 1970 F Date Time Provider Department 09/12/23 PAM WANG [facility] During your visit today, we recorded the [...] which included preparing to see the patient, [id number] patient care, completing clinical documentation, obtaining and/or reviewing separately obtained history, counseling and educating the patient/family/caregiver, ordering medications, tests, or procedures, and communicating with other HCPs (not separately reported). Pam Wang MD Mary states she had her procedure yesterday and [...] Office will call to schedule cystoscopy. 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 Normal [facility] CNOVon 09-11-2023 CNOV Office Visit (UROSMN ) ----- MARY LEAL ([id number]) 1970 F Date Time Provider Department 09/11/23 [...] Jenifer Barry RN 09/11/2023 11:37 AM Signed [facility] UR[facility] LAB URODYNAMIC [...] allergy: No Females- Is patient : No Skin Former offered:Patient declines B/O UA: YES DIP: UROFLOWMETRY [...] Jairon Lai MD 09/11/2023 1:18 PM Signed [facility] [...] Jairon Lai MD Referring Provider: PAM WANG [[id number]] Allergies As of Date: 09/11/2023 Noted Allergy [...] milliliters subcut (more content not included)... Normal [facility] Orders Onlyon 09-01-2023 Orders Only [id number] Darrian Leal en 1970 F Date Provider Department Center 09/01/2023 GIANA JAMES [facility] Gerardo Heal No family history on file Normal [facility] Behavioral Health Telemedici blanchard 08-23-2023 Behavioral Health Telemedicine [id number] Darrian Lealen 1970 Date Provider Department [place] 08/23/2023 GIANA JAMES [facility] Gerardo Heal No family history on file Level of Service:65502 LA OFFICE/OUTPATIENT ESTABLISHED MOD MDM 30-39 MIN Normal [facility] Orders Onlyon 08-21-2023 Orders Only [id number] Darrian Leal en 1970 Date Provider Department [place] 08/21/2023 GIANA JAMES [facility] Gerardo Heal No family history on file Normal [facility] BASIC METABOLIC PANELon 10-0 Anion gap [Moles/Vol] 1 mmol/L Low 8-12 [facility] Comment on above: Performed By: #### 4 [id number], [id number], [id number], [id number] #### [address] [place] [address] [place] Calcium [Mass/Vol] 9.2 mg/dL Normal 8.4-10.4 [facility] [employer] [facility] Comment on above: Performed By: #### 4 [id number], [id number], [id number], [id number] #### [address] [place] [address] [place] Chloride [Moles/Vol] 105 mmol/L Normal 96-109 [facility] [employer] [facility] Comment on above: Performed By: #### 4 [id number], [id number], [id number], [id number] #### [address] [place] [address] [facility] CO2 [Moles/Vol] 32 mmol/L High 22-30 [facility] Comment on above: Performed By: #### 4 [id number], [id number], [id number], [id number] #### [address] [place] [address] [facility] Creatinine [Mass/Vol] 0.67 mg/dL Normal 0.52-1.04 [facility] Comment on above: Performed By: #### 4 [id number], [id number], [id number], [id number] #### [facility] [address] [place] [address] [facility] GLOMERULAR FILTRATION RATE ML/MIN/1.73 SQ M.PREDICTED >90.0 Normal >=60.0 [facility] Comment on above: Result Comment: eGFR calculation [...] Kidney Int Suppl.2013;3:1-150 Performed By: #### 4 [id number], [id number], [id number], [id number] #### [address] [place] [address] [place] Glucose [Mass/Vol] 104 mg/dL High 65-100 [facility] Comment on above: Performed By: #### 4 [id number], [id number], [id number], [id number] #### [address] [place] [address] [place] Potassium [Moles/Vol] 4.6 mmol/L Normal 3.6-5.1 [facility] Comment on above: Performed By: #### 4 [id number], [id number], [id number], [id number] #### [address] [place] [address] [place] Sodium [Moles/Vol] 138 mmol/L Normal 135-147 [facility] Comment on above: Performed By: #### 4 [id number], [id number], [id number], [id number] #### [address] Urea nitrogen [Mass/Vol] 16 mg/dL Normal 8-26 [facility] [employer] Comment on above: Performed By: #### 4 [id number], [id number], [id number], [id number] #### [address] Basic metabolic panel aka Ch em 8on 08-12-2023 Anion gap [Moles/Vol] 1 mmol/L Low 8 - 12 mmol/L [facility] Calcium [Mass/Vol] 9.2 mg/dL 8.4 - 10. 4 mg/dL [facility] Calcium hydrogen phosphate dihydrate crystals LM Ql (Urine sed) 16 mg/dL 8 - 26 mg/dL [facility] Chloride [Moles/Vol] 105 mmol/L 96 - 10 9 mmol/L [facility] CO2 (BldMV) [Moles/Vol] 32 mmol/L High 22 - 30 mmol/L [facility] Creatinine [Mass/Vol] 0.67 mg/dL 0.52 - 1.04 mg/dL [facility] GFR/1.73 sq M.predicted MDRD (S/P/Bld) [Vol rate/Area] - PINF [facility] Comment on above: eGFR calculation bas ed [...] 104 mg/dL High 65 - 100 mg/dL [facility] Interpretation and review of laboratory results Abnormal [facility] Potassium [Moles/Vol] 4.6 mmol/L 3.6 - 5.1 mmol/L [facility] Sodium [Moles/Vol] 138 mmol/L 135 - 147 mmol/L [facility] CBC AND DIFFERENTIALon 08-12 ABSOLUTE BASOPHIL 0.0 x10*3/uL Normal 0.0-0.1 [facility] Comment on above: Performed By: #### 4 [id number] #### [address] ABSOLUTE EOSINOPHIL 0.1 x10*3/uL Normal 0.1-0.3 [facility] Comment on above: Performed By: #### 4 [id number] #### [address] ABSOLUTE IMMATURE GRANULOCYTES 0.0 x10*3/uL Normal 0.0-0.1 [facility] Comment on above: Performed By: #### 4 [id number] #### [address] ABSOLUTE LYMPH 1.6 x10*3/uL Normal 1.2-3.3 [facility] Comment on above: Performed By: #### 4 [id number] #### [address] ABSOLUTE MONO 0.3 x10*3/uL Normal 0.2-0.6 [facility] Comment on above: Performed By: #### 4 [id number] #### [address] ABSOLUTE NEUTROPHIL 3.1 x10*3/uL Normal 2.4-6.6 [facility] Comment on above: Performed By: #### 4 [id number] #### [address] Basophils/100 WBC (Bld) 0.8 % Normal [facility] Comment on above: Performed By: #### 4 [id number] #### [address] Eosinophils/100 WBC (Bld) 2.7 % Normal [facility] Comment on above: Performed By: #### 4 [id number] #### [address] Erythrocyte distribution width (RBC) [Ratio] 13.0 % Normal 11.5-14.5 [facility] Comment on above: Performed By: #### 4 [id number] #### [address] Hematocrit (Bld) [Volume fraction] 37.5 % Normal 33.6-46.8 [facility] Comment on above: Performed By: #### 4 [id number] #### [address] Hemoglobin (Bld) [Mass/Vol] 11.8 g/dL Normal 11.7-15.8 [facility] Comment on above: Performed By: #### 4 [id number] #### [address] Immature granulocytes/100 WBC (Bld) 0.4 % Normal [facility] Comment on above: Performed By: #### 4 [id number] #### [address] Lymphocytes/100 WBC (Bld) 31.5 % Normal [facility] Comment on above: Performed By: #### 4 [id number] #### [address] MCH (RBC) [Entitic mass] 26.5 pg Low 27.5-32.3 [facility] Comment on above: Performed By: #### 4 [id number] #### [address] MCHC (RBC) [Mass/Vol] 31.5 g/dL Normal 30.7-35.5 [facility] Comment on above: Performed By: #### 4 [id number] #### [address] MCV (RBC) [Entitic vol] 84.3 fL Normal 80.2-99 [facility] Comment on above: Performed By: #### 4 [id number] #### [address] Monocytes/100 WBC (Bld) 5.4 % Normal [facility] Comment on above: Performed By: #### 4 [id number] #### [address] Neutrophils/100 WBC (Bld) 59.2 % Normal [facility] Comment on above: Performed By: #### 4 [id number] #### [address] NUCLEATED RED BLOOD CELLS AUTO 0.0 % Normal 0.0-1.0 [facility] Comment on above: Performed By: #### 4 [id number] #### [address] PLATELET COUNT 299 x10*3/uL Normal 150-400 [facility] Comment on above: Performed By: #### 4 [id number] #### [address] RED BLOOD CELL COUNT 4.45 x10*6/uL Normal 3.60-5.20 [facility] Comment on above: Performed By: #### 4 [id number] #### [address] WHITE BLOOD CELLS 5.2 x10*3/uL Normal 4.3-10.3 [facility] Comment on above: Performed By: #### 4 [id number] #### [address] CBC with differentialOrdered By: Background Lab on 08-12-2023 Absolute Immature Granulocytes 0.0 [facility] Age [Time] 84.3 fL 80.2 - 99 fL [facility] Age [Time] 26.5 pg Low 27.5 - 32.3 pg [facility] Age [Time] 31.5 g/dL 30.7 - 35.5 g/dL [facility] B. burgdorferi IgM IB Ql (CSF) 31.5 % [facility] Basophils (Bld) [#/Vol] 0.0 10*3/uL [facility] Basophils/100 WBC (Body fld) 0.8 % [facility] Eosinophils (Bld) [#/Vol] 1.6 10*3/uL [facility] Eosinophils (Bld) [#/Vol] 0.3 10*3/uL [facility] Eosinophils (Bld) [#/Vol] 0.1 10*3/uL [facility] Eosinophils/100 WBC (Bld) 2.7 % [facility] Erythrocyte distribution width (RBC) [Ratio] 13.0 % 11.5 - 14.5 % [facility] Hematocrit (Bld) [Volume fraction] 37.5 % 33.6 - 46.8 % [facility] Hexanoylglycine (U) [Moles/Vol] 11.8 g/dL 11.7 - 15.8 g/dL [facility] Immature granulocytes/100 WBC (Bld) 0.4 % [facility] Interpretation and review of laboratory results Abnormal [facility] Monocytes/100 WBC (Bld) 5.4 % [facility] Neurotensin (P) [Mass/Vol] 59.2 % [facility] Neutrophils (Bld) [#/Vol] 3.1 10*3/uL [facility] Nucleated RBC/100 WBC (Bld) [Ratio] 0.0 % 0.0 - 1.0 % [facility] Platelets (Bld) [#/Vol] 299 10*3/uL [facility] RBC (Bld) [#/Vol] 4.45 10*6/uL [employer] [facility] WBC (Bld) [#/Vol] 5.2 10*3/uL [employer] [facility] CT ABDOMEN PELVIS WITH IV CO NTRASTon [...] 20 RAC Omni 300 100 ml Normal [facility] HEPATIC FUNCTION PANELon Albumin [Mass/Vol] 4.0 g/dL Normal 3.5-5.0 [facility] Comment on above: Performed By: #### 4 [id number], [id number], [id number], [id number] #### [address] [address] ALK PHOS 104 U/L Normal 24-126 [facility] Comment on above: Performed By: #### 4 [id number], [id number], [id number], [id number] #### [address] [address] ALT [Catalytic activity/Vol] 50 U/L High 4-35 [facility] Comment on above: Performed By: #### 4 [id number], [id number], [id number], [id number] #### [address] [address] AST [Catalytic activity/Vol] 59 U/L High 3-47 [facility] Comment on above: Performed By: #### 4 [id number], [id number], [id number], [id number] #### [address] [address] Bilirubin [Mass/Vol] 0.1 mg/dL Low 0.2-1.6 [facility] Comment on above: Performed By: #### 4 [id number], [id number], [id number], [id number] #### [address] [address] Bilirubin.indirect [Mass/Vol] 0.1 mg/dL Normal <=0.5 [facility] Comment on above: Performed By: #### 4 [id number], [id number], [id number], [id number] #### [address] [address] Protein [Mass/Vol] 6.6 g/dL Normal 6.3-8.2 [facility] Comment on above: Performed By: #### 4 [id number], [id number], [id number], [id number] #### [address] [address] [facility] Hepatic Function Panelon Albumin (Syn fld) [Mass/Vol] 4.0 g/dL 3.5 - 5.0 g/dL [facility] Aldosterone (U) [Mass/Vol] 104 U/L 24 - 126 U/L [facility] ALT [Catalytic activity/Vol] 50 U/L High 4 - 35 U/L [facility] AST [Catalytic activity/Vol] 59 U/L High 3 - 47 U/L [facility] Bilirubin [Mass/Vol] 0.1 mg/dL Low 0.2 - 1 .6 mg/dL [facility] Bilirubin.conjugated [Mass/Vol] 0.1 mg/dL NINF - 0.5 mg/dL [facility] Protein [Mass/Vol] 6.6 g/dL 6.3 - 8.2 g/dL [facility] LIPASEon 08-12-2023 Lipase [Catalytic activity/Vol] 11 U/L Low 23-300 [facility] Comment on above: Performed By: #### 4 [id number], [id number], [id number], [id number] #### [facility] [address] [place] [address] Lipaseon 08-12-2023 Lipase [Catalytic activity/Vol] 11 U/L Low 23 - 300 U/L [facility] No Panel Informationon 08-12 Extra Tube Hold for add-ons. [facility] Interpretation and review of laboratory results Abnormal [facility] POCT ED/FC/GSC Urine PregOrd ered By: Della Hays on 08-12-2023 Beta HCG ( test) Ql (U) Negative [facility] Interpretation and review of laboratory results Normal [facility] Pharmacology Associate Acceptable yes [facility] TROPONIN Ion 08-12-2023 Troponin I.cardiac [Mass/Vol] ng/mL Normal <=0.033 [facility] Comment on above: Result Comment: Nega tive: No detectable troponin-I. Performed By: #### 4 [id number] #### [address] TROPONIN I SERIESon 08-12-20 Troponin I.cardiac [Mass/Vol] ng/mL Normal <=0.033 [facility] Comment on above: Result Comment: Nega tive: No detectable troponin-I. Performed By: #### 4 [id number], [id number], [id number], [id number] #### [address] Troponin I (One time)on Interpretation and review of laboratory results Normal [facility] Troponin I.cardiac [Mass/Vol] ng/mL BANNER - 0.033 ng/mL [facility] Comment on above: Negative: No detectable troponin-I. [facility] Troponin I - Series (X 3)on 08-12-2023 Interpretation and review of laboratory results Normal [facility] Troponin I.cardiac [Mass/Vol] ng/mL NINF - 0.033 ng/mL [facility] Comment on above: Negative: No detectable troponin-I. [facility] URINALYSIS WITH REFLEX CULTU REon 08-12-2023 Appearance (U) Clear Normal [facility] Comment on above: Performed By: #### 4 [id number] #### [address] BILIRUBIN UA Negative Normal Negative [facility] Comment on above: Performed By: #### 4 [id number] #### [address] Color (U) Yellow Normal [facility] Comment on above: Performed By: #### 4 [id number] #### [address] Glucose Ql (U) Negative Normal Negative [facility] Comment on above: Performed By: #### 4 [id number] #### [address] [address] Ketones Ql (U) Negative Normal Negative [facility] Comment on above: Performed By: #### 4 [id number] #### [address] LEUKOESTERASE Negative Normal Negative [facility] Comment on above: Performed By: #### 4 [id number] #### [address] [address] [place] MUCOUS-URINE Occasional Normal [facility] Comment on above: Performed By: #### 4 [id number] #### [address] [address] [place] Nitrite Ql (U) Negative Normal Negative [facility] Comment on above: Performed By: #### 4 [id number] #### [address] OCCULT BLD Negative Normal Negative [facility] Comment on above: Performed By: #### 4 [id number] #### [address] PH, URINE 5.0 Normal [facility] Comment on above: Performed By: #### 4 [id number] #### [address] Protein Ql (U) Negative Normal Negative [facility] Comment on above: Performed By: #### 4 [id number] #### [address] RBC LM.HPF (Urine sed) [#/Area] /[HPF] Normal <=5 [facility] Comment on above: Performed By: #### 4 [id number] #### [address] SPECIFIC GRAVITY, URINE 1.025 Normal [facility] Comment on above: Performed By: #### 4 [id number] #### [address] SQUAMOUS EPI CELLS 51 /LPF [facility] Comment on above: Performed By: #### 4 [id number] #### [address] UROBILINOGEN UA Negative Normal <2.0 [facility] Comment on above: Performed By: #### 4 [id number] #### [address] WBC LM.HPF (Urine sed) [#/Area] 2 /[HPF] Normal <=5 [facility] Comment on above: Performed By: #### 4 [id number] #### [address] Urinalysis complete W Reflex Culture panel (U)on 08-12-2023 Acetone [Mass/Vol] Negative Negative [facility] Appearance (Body fld) Clear [facility] Bilirubin Ql (U) Negative Negative [facility] Color (Stone) Yellow [facility] G6PD (RBC) [Catalytic activity/Vol] Negative Negative [facility] Hemoglobin Ql (U) NINF [facility] Leukocyte esterase Test strip Ql (U) Negative Negative [facility] Mucor racemosus IgE Qn (S) Occasional /LPF [facility] Nitrite Test strip (U) [Mass/Vol] Negative Negative [facility] pH (Migue fld) 5.0 [facility] Protein (U) [Mass/Vol] Negative Negative [facility] Tr[place]ble IgE Qn (S) Negative Negative [facility] Specific gravity (U) [Rel density] 1.025 [facility] Spherocytes LM Ql (Bld) 51 /LPF [facility] Urobilinogen Qn (U) Negative NINF - 2.0 [facility] WBC (U) [#/Vol] 2 /uL NINF [facility] 36on 08-02-2023 36 Call placed to patiblanca nt to discuss how often she is taking Miralax. Patient is taking Miralax once daily as instructed. Per Alba Montague she was instructed that she can take it twice a day. Also advised patient that Alba Montague will be consulting with the physician who performed her procedure. Normal [facility] Orders Onlyon 08-02-2023 Orders Only [id number] Darrian Leal 1970 F Date Provider Department Center 08/02/2023 GIANA JAMES [facility] Gerardo Heal No family history on file [facility] CNOVon 07-31-2023 CNCHELITA Office Visit (SHERON ) ----- MARY LEAL ([id number]) 1970 F Date Time Provider Department 07/31/23 2:30 PM NELSY CHÁVEZ During your visit today, we recorded the following information about you: Pulse Blood pressure Weight Height 76/minute 136/96 69.9 kg 1.626 m Nelsy Chávez APRN.CNP 07/31/2023 5:35 PM Signed Female Pelvic Medicine [...] new Pain: no Abnormal Vaginal Discharge: no 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 She has no history of an abnormal mammogram with cysts on US LMP: No LMP recorded. Patient has had a hysterectomy.; Menopause 3 years ago; hysterectomy in 2014: Menstrual history: NA; Deliveries: I have confirmed and edited as necessary, the PFSH obtained by others. Nelsy Chávez APRN.COAL WEIGHER Skin Former offered: Patient declines. OBJECTIVE: There were no [...] Myrbetriq for now d/t side effects Nelsy Chávez, DANN.COAL WEIGHER I spent a total of 45 minutes on the date of the service which included preparing to see the patient, avfw-kp-hxgg patient care, completing clinical documentation, performing a medically appropriate examination, counseling and educating the patient/family/caregiver and ordering medications, tests, or procedures. Referring Provider: SELF [200] Allergies As of Date: 07/31/2023 Noted Allergy Reaction RISPERIDONE 07/27/2021 5 - Intolerance Comments: Breast discharge Date Reviewed: 07/31/2023 Reviewed by: Jessica Cornell, MAKI - Fully Assessed Reason for Visit: Urinary Retention [228] Primary Visit Diagnosis:Incomplete bladder emptying [R33.9] Other Visit Diagnoses:Constipation, unspecified constipation type [K59.00] Urinary urgency [R39.15] Urinary frequency [R35.0] Nocturia [R35.1] Order(s):UA DIP, URINE (POC) [[id number]] Order #: [id number]. #:[id number] 45-LAB URODYNAMICS [facility] [[id number]] Order #: [id number] Prescriptions as of 07/31/2023 - atenolol (TENORMIN) [...] 10 m (more content not included)... Normal [facility] UA DIP, URINE (POC)on 2022 BILIRUBIN UA (POCT) Negative Negative Sarbjit [facility] CLARITY UA (POCT) Clear [facility] COLOR UA (POCT) Yellow [facility] GLUCOSE UA (POCT) Negative Negative mg/dL [facility] Hemoglobin Ql (U) Negative Negative [facility] KETONE UA (POCT) Negative Negative mg/dL [facility] LEUKOCYTES UA (POCT) Negative Negative [facility] NITRITE UA (POCT) Negative Negative [facility] PH UA (POCT) 5.0 4.5 - 8.0 [facility] Protein Ql (U) Negative Negative mg/dL [facility] SPECIFIC GRAVITY UA (POCT) 1.010 1.005 - 1.030 [facility] UROBILINOGEN UA (POCT) 0.2 E.U./dL Brenda l E.U./dL [facility] HISTOLOGY - TISSUE EXAMon LAB AP ASR [...] the Clinical Laboratory Improvement Amendments of 1998. Normal [facility] Comment on above: Performed By: #### L [id number] ####[facility] (BEAKER)[address] [place] [address] LAB AP CASE REPORT Normal [facility] Comment on above: Result Comment: Surg ical Pathology Case: [id number] Authorizing Provider: Matteo Quinones MD Collected: 07/25/2023 1126 Ordering Location: [facility] Received: 07/25/2023 1233 [facility] [place] Pathologist: Boni Benito MD Specimens: A) - Small Intestine, Duodenum, R/O CELIAC B) - Gastric, R/O H PYLORI C) - Distal Esophagus, R/O EOE D) - Proximal Esophagus, R/O EOE E) - Small Intestine, Terminal Ileum, R/O COLITIS Performed By: #### L [id number] ####[facility] (BEAKER)[address] [place] [address] LAB AP CLINICAL INFORMATION Order Diagnoses Normal [facility] Comment on above: Result Comment: K21. 9 - Gastroesophageal reflux disease without esophagitis [ICD-10-CM] R11.0 - Nausea [ICD-10-CM] R19.7 - Diarrhea, unspecified type [ICD-10-CM] Performed By: #### L [id number] ####[facility] (BEAKER)[address] [place] [address] LAB AP GROSS DESCRIPTION Normal [facility] Comment on above: Result Comment: A. S mall Intestine, Duodenum. Received in formalin in a container labeled Mary Evlis, Duodenum R/O CELIAC . It consists of 4, soft, jaimes-white tissue biopsy fragments measuring 0.5 x 0.4 x 0.2 cm in aggregate. The entire specimen is submitted in 1 cassette. Please note, some minute fragments may not survive processing. Leyla Goetz, PGY 1 B. Gastric. Received in formalin in a container labeled Mary Elvis, Gastric R/O H PYLORI . It consists of 5, soft, jaimes-white tissue biopsy fragments measuring 0.6 x 0.3 x 0.2 cm in aggregate. The entire specimen is submitted in 1 cassette. Please note some minute fragments may not survive processing Leyla Goetz, PGY 1 C. Distal Esophagus. Received in formalin in a container labeled Mary Elvis, Distal esoph R/O EOE . It consists of 3, soft, jaimes-white tissue biopsy fragments measuring 0.6 x 0.3 x 0.1 cm in aggregate. The entire specimen is submitted in 1 cassette. Leyla Goetz, PGY 1 D. Proximal Esophagus. Received in formalin in a container labeled Mary Elvis, Proximal Eso R/O EOE . It consists [...] Goetz, PGY 1 Performed By: #### L [id number] ####[facility] (BEAKER)[address] [place] [address] LAB AP MICROSCOPIC DESCRIPTION Microscopic examination performed. [facility] Comment on above: Performed By: #### L [id number] ####[facility] (BEAKER)[address] [place] [address] LAB AP REPORT FINAL DIAGNOSIS NARRATIVE [facility] Comment on above: Result Comment: A. D [...] or malignancy identified. Performed By: #### L [id number] ####[facility] (BEAKER)[address] [place] [address] HPon 07-25-2023 H&P reviewed. The rigoberto montemayor was examined and there are no changes to the H&P. [facility] HP ----- ----- Attestation signed by Matteo Quinones MD at 08/01/2023 12:46 PM I saw and evaluated the patient. I reviewed the resident's/fellow's note and agree with the findings and plan documents in the resident's/fellow's note ----- History Of Present Illness Mary Leal is [...] includes Colon surgery; Stomach surgery; Hysterectomy; Appendectomy; Esophagogastroduodenoscop y; and Foot surgery (Right). Social History She [...] loose bowel movements. Plan EGD and colonoscopy Normal [facility] NURSNOTEon 07-25-2023 NURSNOTE ANASTOMOSIS SITE REACHED Normal [facility] Orders Onlyon 07-25-2023 Orders Only [id number] ElvisDenversybil en 1970 F Date Provider Department Center 07/25/202394447-WWHIQFILIPE PAZ [facility] No family history on file Normal [facility] POCT GLUCOSE METER UNSOLICIT ED RESULTSon 07-25-2023 Glucose [Mass/Vol] 87 mg/dL Normal 70-105 [facility] Comment on above: Order Comment: Waive d Testing in the ED is performed under the ED CLIA certificate #[id number]. Result Comment: dhol as Performed By: #### L [id number] #### [facility] ([facility]AKER) [address] [place] [address] Orders Onlyon 07-21-2023 Orders Only [id number] Darrian Leal en 1970 F Date Provider Department Center 07/21/2023 [facility] No family history on file Normal [facility] Orders Onlyon 07-19-2023 Orders Only [id number] Darrian Leal en 1970 F Date Provider Department Center 07/19/2023 Karli-GIANA MORALES [facility] Gerardo Heal No family history on file Normal [facility] Prep for Procedureon 023 Prep for Procedure [id number] Darrian Leal en 1970 F Date Provider Department Center 07/17/2023 Sakina-MATTEO QUINONES [facility] GEORGEFaizan No family history on file Normal [facility] HPon 07-11-2023 HP Formatting of this n ote is different from the original. Images from the original note were not included. [facility] [address] [place] [address] DR LOZA [address] [place] [id number] SUBJECTIVE: Patient ID: Mary Leal is a [...] Takes Dexilant daily, sees Dr. Montague at [facility]. HISTORY: Past Medical History: Diagnosis Date ADD (attention deficit disorder) Anxiety Asthma Bipolar disorder (CMS-HCC) Depression Dysphagia Gastric paresis GERD (gastroesophageal reflux disease) Headache migraines History of pleurisy STATES 2 WEEKS AGO Hypertension Obesity Primary insomnia 07/07/2020 Rectal bleeding Restless leg syndrome Visual impairment one contact left, glasses Past Surgical History: Procedure Laterality Date APPENDECTOMY ARTHROSCOPIC REPAIR ACL Left COLONOSCOPY COLONOSCOPY with bx's N/A 03/20/2020 Performed by Noman Mayo MD at [facility] ENDOSCOPY EGD, DILATATION N/A 09/25/2020 Performed by Noman Mayo MD at [facility] ENDOSCOPY FOOT SURGERY 06/25/2020 left foot surgery HYSTERECTOMY LASER LINGUAL TONISILLECTOMY Circumferential 07/08/2021 Performed by Areli Avila MD PhD at [facility] MRI FOOT LEFT NECK SURGERY PLANTAR FASCIECTOMY RELEASE PHARYNGEAL SCAR CPT 54445 Circumferential 07/08/2021 Performed by Areli Avila MD PhD at [facility] RESECTION SUBMUCOSAL NASAL Bilateral 02/11/2021 Performed by Areli Avila MD PhD at [facility] SEPTOPLASTY Circumferential 02/11/2021 Performed by Areli Avila MD PhD at [facility] TONSILLECTOMY Bilateral 02/11/2021 Performed by Areli Avila MD PhD at [facility] uvuloplasty N/A 02/11/2021 Performed by Areli Avila MD PhD at [facility] Family History Problem [...] tablet (3 mg total) by mouth nightly. gecvirnoxfd-tldbmgzxy-qem anter (TRELEGY ELLIPTA) 100-62.5-25 mcg blister with device [...] day, no mor (more content not included)... [facility] Orders Onlyon 06-26-2023 Orders Only [id number] Darrian Leal en 1970 F Date Provider Department Center 06/26/2023 GIANA JAMES [facility] Gerardo Heal No family history on file [facility] Office Visit (Cardiology)on 06-13-2023 Follow-up visit Diagnoses/Problems Assessed Chest pain (786.50) (R07.9) Elevated troponin (790.6) (R77.8) Fatigue (780.79) (R53.83) Never a smoker Overweight with body mass index (BMI) of 27 to 27.9 in adult (278.02,V85.23) (E66.3,Z68.27) Orders Elevated troponin IO EKG Electrocardiogram- 12 Lead; Status:Active - Perform Order,Retrospective Authorization; Requested for:[id number]; Overweight with body mass index (BMI) of 27 to 27.9 in adult Healthy Weight Tips; Status:Complete - Retrospective Authorization; Done: [id number] Some eating tips that can help you lose weight.; Status:Complete - Retrospective Authorization; Done: [id number] SocHx: Never a smoker Tobacco Use Screening; Status:Complete; Done: [id number] Patient Instructions Please bring all medicines, vitamins, [...] weakness, dizziness, diaphoresis with recent work-up that [facility] emergency room. Reportedly her troponins are elevated [...] of which are currently being investigated at [facility] (now her fourth GI specialist). Last year while in [place] she had similar issues with elevated troponins in the ED and underwent heart catheterization that did not reveal any specific significant disease, details of the discharge summary are reviewed She underwent recent stress perfusion imaging at [facility], the report is reviewed, she has no [...] disease, will investigate the troponin rise at [facility] however I believe this is likely a non-RI troponin elevation, likely associated with underlying inflammatory [...] Signs Recorded: 13Jun2023 10:37AM Heart Rate70, Apical Wiboxhpw175, RUE, Sitting Riycfgani02, RUE, Sitting Height5 ft 4 in Gflyed337 lb BMI Samykldkca17.46 kg/m2 BSA Calculated1.78 Tobacco Useb) No PHQ-2 [...] #1. Lit (more content not included)... Normal [facility] Tobacco Screening.on 023 Adult depression screening assessment No [facility] [address] DO Work Phone: Adult depression screening assessment Yes [facility] io [facility] [address] DO Work Phone: Adult depression screening assessment Moderate (10-14) [facility] [facility] DO Work Phone: Fall risk assessment a) No falls within the last year [facility] [address] DO Work Phone: Tobacco use status CP b) No [facility] [address] DO Work Phone: Tobacco Screening. 1-Several days [facility] [address] DO Work Phone: Tobacco Screening. 3-Nearly every day [facility] 320 DO Work Phone: Tobacco Screening. 0-Not at all [facility] [address] DO Work Phone: Tobacco Screening. Somewhat Difficult [facility] [address] DO Work Phone: STR cardiac stress/lexiscano n 06-09-2023 STR cardiac stress/lexiscan [facility] [address] Cardiac Stress Test Signed Patient: Mary Leal MR#: [id number] : 1970 Acct:[id number] Age/Sex: 53 / F ADM Date: 06/05/23 Loc: ER Room: Type: [facility] ER Attending Dr: Copies to: DO Marielle Soto MD, FACC Ordering Provider: Anibal Valle DO Date of [...] 06/09/23 1614 Dictated By: Marielle Scruggs MD, FAC 06/09/23 1550 Signed By: 06/10/23 0903 [facility] Behavioral Health Telemedici neon 06-08-2023 Behavioral Health Telemedicine [id number] Mary Leal 1970 F Date Provider Department Center 06/08/2023 GIANA JAMES [facility] Gerardo Heal No family history on file Level of Service:33295 LA OFFICE/OUTPATIENT ESTABLISHED MOD MDM 30-39 MIN Reason for Visit and Comments: Telehealth Audio/video Visit [871] Normal [facility] NM mirtha perf SPECT rest stron 06-08-2023 NM mirtha perf SPECT rest str [facility] [place] [address] Nuclear Medicine Report Signed Patient: Mary Leal MR#: [id number] : 1970 Acct:[id number] Age/Sex: 53 / F ADM Date: 06/05/23 Loc: ER Room: Type: [facility] ER Attending Dr: Copies to: DO Marielle Soto MD, [facility] Ordering Provider: Anibal Valle DO Date [...] 06/08/23 1659 Dictated By: Marielle Scruggs MD, [facility] 06/08/23 1540 Signed By: 06/09/23 1532 Normal [facility] 36on 06-05-2023 36 Patient calls wonder ing about her calprotectin being high. Please advise Normal [facility] Activated partial thrombopla stin time (aPTT) in platelet poor plasma by coagulation aOrdered By: Anibal Valle on 06-05-2023 aPTT Coag (PPP) [Time] 28.0 s 25.1-36.5 [facility] B-Type Natriuretic Peptideon 06-05-2023 Natriuretic peptide B (Bld) [Mass/Vol] 39.0 pg/mL Normal 5-100 [facility] Comment on above: Result Comment: PERF ORMED BY: [place] [address] PATHOLOGIST SUPERVISOR RIVETING LEVAR CASE M.D. Performed By: #### T 4T, ESR, URIC, CRP, TSH3 #### [address] #### RA, CHUYITA #### [facility] , Basic Metabolic Panelon 05-08 Anion gap [Moles/Vol] 10.6 mmol/L Normal 6.0-15.0 [facility] Comment on above: Performed By: #### T 4T, ESR, URIC, CRP, TSH3 #### [address] #### RA, CHUYITA #### [facility] , Calcium [Mass/Vol] 9.0 mg/dL Normal 8.6-10.3 [facility] Comment on above: Performed By: #### T 4T, ESR, URIC, CRP, TSH3 #### [facility] [address] [place] [address] #### RA, CHUYITA #### [facility] , Chloride [Moles/Vol] 108 mmol/L High 98-107 [facility] Comment on above: Performed By: #### T 4T, ESR, URIC, CRP, TSH3 #### [facility] [address] [place] [address] #### RA, CHUYITA #### [facility] , CO2 [Moles/Vol] 23.2 mmol/L Normal 21.0-31.0 [facility] Comment on above: Performed By: #### T 4T, ESR, URIC, CRP, TSH3 #### [facility] [address] [place] [address] #### RA, CHUYITA #### [facility] , Creatinine [Mass/Vol] 0.67 mg/dL Normal 0.60-1.20 [facility] Comment on above: Performed By: #### T 4T, ESR, URIC, CRP, TSH3 #### [facility] [address] [place] [address] #### RA, CHUYITA #### [facility] , Creatinine Clr Calc Pharmacy 97.82 [facility] Comment on above: Result Comment: PERF ORMED BY: [place] [address] PATHOLOGIST SUPERVISOR RIVETING LEVAR CASE M.D. Performed By: #### T 4T, ESR, URIC, CRP, TSH3 #### [facility] [address] [place] [address] [place] #### RA, CHUYITA #### [facility] , GFR/1.73 sq M.predicted MDRD (S/P/Bld) [Vol rate/Area] mL/min/{1.73_m2} Normal [facility] Comment on above: Performed By: #### T 4T, ESR, URIC, CRP, TSH3 #### [facility] [address] [place] [address] [place] #### RA, CHUYITA #### [facility] , Glucose [Mass/Vol] 106 mg/dL High 70-100 [facility] Comment on above: Result Comment: [place] Glucose Reference Range is dependent on time and content of last meal. Glucose of more than 200 mg/dL in a nonstressed, ambulatory subject supports the diagnosis of Diabetes Mellitus. ADA recommended reference range Performed By: #### T 4T, ESR, URIC, CRP, TSH3 #### [address] #### RA, CHUYITA #### [facility] , Potassium [Moles/Vol] 3.8 mmol/L Normal 3.5-5.1 [facility] Comment on above: Performed By: #### T 4T, ESR, URIC, CRP, TSH3 #### [facility] [address] [place] [address] [place] #### RA, CHUYITA #### [facility] , Sodium [Moles/Vol] 138 mmol/L Normal 136-145 [facility] Comment on above: Performed By: #### T 4T, ESR, URIC, CRP, TSH3 #### [place] [address] [place] #### RA, CHUYITA #### [facility] , Urea nitrogen [Mass/Vol] 10 mg/dL Normal 7-25 [facility] Comment on above: Performed By: #### T 4T, ESR, URIC, CRP, TSH3 #### [place] [address] [place] #### RA, CHUYITA #### [facility] , Basophils Auto (Bld) [#/Vol] Ordered By: Anibal Valle on 06-05-2023 Basophils (Bld) [#/Vol] 0.0 10*3/uL 0.0-0.2 [facility] Basophils/100 WBC Auto (Bld) Ordered By: Anibal Valle on 06-05-2023 Basophils/100 WBC (Bld) 0.4 % . [facility] Calcium [Mass/volume] in Ser um or PlasmaOrdered By: Anibal Valle on 06-05-2023 Calcium [Mass/Vol] 9.0 mg/dL 8.6-10.3 [facility] Carbon dioxide, total [Moles /volume] in Serum or PlasmaOrdered By: Anibal Valle on 06-05-2023 CO2 [Moles/Vol] 23.2 mmol/L 21.0-31.0 [facility] Chloride [Moles/volume] in S jay or PlasmaOrdered By: Anibal Valle on 06-05-2023 Chloride [Moles/Vol] 108 mmol/L 98-107 [facility] Complete Blood Count Auto Di ffon 06-05-2023 Basophils (Bld) [#/Vol] 0.0 10*3/uL Normal 0.0-0.2 [facility] Comment on above: Result Comment: PERF ORMED BY: [place] [address] PATHOLOGIST SUPERVISOR RIVETING LEVAR CASE M.D. Performed By: #### T 4T, ESR, URIC, CRP, TSH3 #### [facility] [address] [place] [address] #### RA, CHUYITA #### [facility] , Basophils/100 WBC (Bld) 0.4 % Normal . [facility] Comment on above: Performed By: #### T 4T, ESR, URIC, CRP, TSH3 #### [facility] [address] [place] [address] [place] #### RA, CHUYITA #### [facility] , Eosinophils (Bld) [#/Vol] 0.1 10*3/uL Normal 0.0-0.45 [facility] Comment on above: Performed By: #### T 4T, ESR, URIC, CRP, TSH3 #### [facility] [address] [place] [address] [place] #### RA, CHUYITA #### [facility] , Eosinophils/100 WBC (Bld) 1.9 % Normal . [facility] Comment on above: Performed By: #### T 4T, ESR, URIC, CRP, TSH3 #### [facility] [address] [place] [address] [place] #### RA, CHUYITA #### [facility] , Erythrocyte distribution width (RBC) [Ratio] 13.9 % Normal 11.9-15.3 [facility] Comment on above: Performed By: #### T 4T, ESR, URIC, CRP, TSH3 #### [address] #### RA, CHUYITA #### [facility] , Hematocrit (Bld) [Volume fraction] 34.4 % Normal 34.0-46.4 [facility] Comment on above: Performed By: #### T 4T, ESR, URIC, CRP, TSH3 #### [facility] [address] [place] [address] [place] #### RA, CHUYITA #### [facility] , Hemoglobin (Bld) [Mass/Vol] 11.9 g/dL Normal 11.8-15.4 [facility] Comment on above: Performed By: #### T 4T, ESR, URIC, CRP, TSH3 #### [facility] [address] [place] [address] [place] #### RA, CHUYITA #### [facility] , Lymphocytes (Bld) [#/Vol] 1.8 10*3/uL Normal 1.00-4.8 [facility] Comment on above: Performed By: #### T 4T, ESR, URIC, CRP, TSH3 #### [facility] [address] [place] [address] [place] #### RA, CHUYITA #### [facility] , Lymphocytes/100 WBC (Bld) 41.0 % Normal . [facility] Comment on above: Performed By: #### T 4T, ESR, URIC, CRP, TSH3 #### [facility] [address] [place] [address] #### RA, CHUYITA #### [facility] , MCH (RBC) [Entitic mass] 27.7 pg Normal 24.7-34.3 [facility] Comment on above: Performed By: #### T 4T, ESR, URIC, CRP, TSH3 #### [facility] [address] [place] [address] #### RA, CHUYITA #### [facility] , MCV (RBC) [Entitic vol] 80.2 fL Normal 80-100 [facility] Comment on above: Performed By: #### T 4T, ESR, URIC, CRP, TSH3 #### [address] #### RA, CHUYITA #### [facility] , Mean Corpuscular HGB Conc 34.5 g/dL Normal 32.0-35.0 [facility] Comment on above: Performed By: #### T 4T, ESR, URIC, CRP, TSH3 #### [facility] [address] [place] [address] #### RA, CHUYITA #### [facility] , Monocytes (Bld) [#/Vol] 0.3 10*3/uL Normal 0.0-0.8 [facility] Comment on above: Performed By: #### T 4T, ESR, URIC, CRP, TSH3 #### [facility] [address] [place] [address] [place] #### RA, CHUYITA #### [facility] , Monocytes/100 WBC (Bld) 24.18 % High 0.00-20.00 [facility] Comment on above: Result Comment: For adults in ED, MDW > 20.0 may be associated with a higher risk of sepsis during the first 12 hrs of hospital admission Performed By: #### T 4T, ESR, URIC, CRP, TSH3 #### [facility] [address] [place] [address] #### RA, CHUYITA #### [facility] , Monocytes/100 WBC (Bld) 7.5 % Normal . [facility] Comment on above: Performed By: #### T 4T, ESR, URIC, CRP, TSH3 #### [facility] [address] [place] [address] #### RA, CHUYITA #### [facility] , Neutrophils (Bld) [#/Vol] 2.2 10*3/uL Normal 1.8-7.7 [facility] Comment on above: Performed By: #### T 4T, ESR, URIC, CRP, TSH3 #### [address] #### RA, CHUYITA #### [facility] , Neutrophils/100 WBC (Bld) 49.2 % Normal . [facility] Comment on above: Performed By: #### T 4T, ESR, URIC, CRP, TSH3 #### [address] #### RA, CHUYITA #### [facility] , NRBC% 0.1 /100{WBC} Normal 0-0.5 [facility] Comment on above: Performed By: #### T 4T, ESR, URIC, CRP, TSH3 #### [facility] [address] [place] [address] [place] #### RA, CHUYITA #### [facility] , Platelet mean volume (Bld) [Entitic vol] 7.4 fL Normal 6.3-10.7 [facility] Comment on above: Performed By: #### T 4T, ESR, URIC, CRP, TSH3 #### [address] [place] [address] [place] #### RA, CHUYITA #### [facility] , Platelets (Bld) [#/Vol] 336 10*3/uL Normal 150-450 [facility] Comment on above: Performed By: #### T 4T, ESR, URIC, CRP, TSH3 #### [facility] [address] [place] [address] [place] #### RA, CHUYITA #### [facility] , RBC (Bld) [#/Vol] 4.29 10*6/uL Normal 3.60-5.00 [facility] Comment on above: Performed By: #### T 4T, ESR, URIC, CRP, TSH3 #### [facility] [address] [place] [address] #### RA, CHUYITA #### [facility] , WBC (Bld) [#/Vol] 4.4 10*3/uL Normal 3.8-11.6 [facility] Comment on above: Performed By: #### T 4T, ESR, URIC, CRP, TSH3 #### [facility] [address] [place] [address] [place] #### RA, CHUYITA #### [facility] , Creatinine [Mass/volume] in Serum or PlasmaOrdered By: Anibal Valle on 06-05-2023 Creatinine [Mass/Vol] 0.67 mg/dL 0.60-1.20 [facility] ECG 12 lead ECGon 06-05-2023 ECG 12 lead ECG [facility] Main [place] [address] [place] [address] Electrocardiograph Report Signed Patient: Mary Leal MR#: [id number] [id number] : 1970 Acct:[id number] Age/Sex: 53 / F ADM Date: 06/05/23 Loc: ER Room: Type: [facility] ER Attending Dr: Ordering Provider: Olayinka Corado [...] was found Confirmed by ANIBAL VALLE DO ([id number]) on 06/05/2023 4:21:05 PM Referred By: Electronically Signed By:ANIBAL VALLE DO Transcribed By: MUS Signed By Anibal Valle DO 06/05 [facility] ECG 12 lead ECG [facility] [place] [address] Electrocardiograph Report Signed Patient: Mary Leal MR#: [id number] : 1970 Acct:[id number] Age/Sex: 53 / F ADM Date: 06/05/23 Loc: ER Room: Type: [facility] ER Attending Dr: Ordering Provider: Anibal Valle [...] was found Confirmed by ANIBAL VALLE DO ([id number]) on 06/05/2023 4:21:06 PM Referred By: Electronically Signed By:ANIBAL VALLE DO Transcribed By: MUS Signed By Anibal Valle DO 06/05 162 [facility] Eosinophils Auto (Bld) [#/Vo l]Ordered By: Anibal Valle on 06-05-2023 Eosinophils (Bld) [#/Vol] 0.1 10*3/uL 0.0-0.45 [facility] Eosinophils/100 WBC Auto (Bl d)Ordered By: Anibal Valle on 06-05-2023 Eosinophils/100 WBC (Bld) 1.9 % . [facility] Erythrocyte distribution wid th Auto (RBC) [Ratio]Ordered By: Anibal Valle on 06-05-2023 Erythrocyte distribution width (RBC) [Ratio] 13.9 % 11.9-15.3 [facility] Glucose [Mass/volume] in Ser um or PlasmaOrdered By: Anibal Valle on 06-05-2023 Glucose [Mass/Vol] 106 mg/dL 70-100 [facility] Comment on above: ADA recommended refe rence rangeRandom Glucose Reference Range is dependent on time and content of last meal. Glucose of more than 200 mg/dL in a nonstressed, ambulatory subject supports the diagnosis of Diabetes Mellitus. Hematocrit Auto (Bld) [Volum e fraction]Ordered By: Anibal Valle on 06-05-2023 Hematocrit (Bld) [Volume fraction] 34.4 % 34.0-46.4 [facility] Hemoglobin [Mass/volume] in BloodOrdered By: Anibal Valle on 06-05-2023 Hemoglobin (Bld) [Mass/Vol] 11.9 g/dL 11.8-15.4 [facility] Laboratory - CoagulationOrde red By: Anibal Valle on 06-05-2023 PT Coag (PPP) [Time] 12.0 s 9.0-12.9 [facility] Leukocytes [#/volume] correc herbert for nucleated erythrocytes in Blood by Automated counOrdered By: Anibal Valle on 06-05-2023 WBC corrected for nucl RBC Auto (Bld) [#/Vol] 4.4 10*3/uL 3.8-11.6 [facility] Lymphocytes Auto (Bld) [#/Vo l]Ordered By: Anibal Valle on 06-05-2023 Lymphocytes (Bld) [#/Vol] 1.8 10*3/uL 1.00-4.8 [facility] Lymphocytes/100 WBC Auto (Bl d)Ordered By: Anibal Valle on 06-05-2023 Lymphocytes/100 WBC (Bld) 41.0 % . [facility] MCH Auto (RBC) [Entitic mass ]Ordered By: Anibal Valle on 06-05-2023 MCH (RBC) [Entitic mass] 27.7 pg 24.7-34.3 [facility] MCHC Auto (RBC) [Mass/Vol]Or dered By: Anibal Valle on 06-05-2023 MCHC (RBC) [Mass/Vol] 34.5 g/dL 32.0-35.0 [facility] MCV Auto (RBC) [Entitic vol] Ordered By: Anibal Valle on 06-05-2023 MCV (RBC) [Entitic vol] 80.2 fL 80-100 [facility] Monocyte distribution width [Entitic volume] in Blood by AutomatedOrdered By: Anibal Valle on 06-05-2023 Monocyte distribution width Auto (Bld) [Entitic vol] 24.18 % 0.00-20.00 [facility] Comment on above: For adults in ED, MD W > 20.0 may be associated with a higher risk of sepsis during the first 12 hrs of hospital admission Monocytes Auto (Bld) [#/Vol] Ordered By: Anibal Valle on 06-05-2023 Monocytes (Bld) [#/Vol] 0.3 10*3/uL 0.0-0.8 [facility] Monocytes/100 WBC Auto (Bld) Ordered By: Anibal Valle on 06-05-2023 Monocytes/100 WBC (Bld) 7.5 % . [facility] Natriuretic peptide B [Mass/ Vol]Ordered By: Anibal Valle on 06-05-2023 Natriuretic peptide B (Bld) [Mass/Vol] 39.0 pg/mL 5-100 [facility] Neutrophils Auto (Bld) [#/Vo l]Ordered By: Anibal Valle on 06-05-2023 Neutrophils (Bld) [#/Vol] 2.2 10*3/uL 1.8-7.7 [facility] Neutrophils/100 WBC Auto (Bl d)Ordered By: Anibal Valle on 06-05-2023 Neutrophils/100 WBC (Bld) 49.2 % . [facility] No Panel InformationOrdered By: Anibal Valle on 06-05-2023 Estimated GFR (CKD-EPI) > 60.0 mL/Min [facility] Creatinine Clearance (Chem 97.82 [facility] Nucleated erythrocytes [Pres ence] in Blood by Automated countOrdered By: Anibal Valle on 06-05-2023 Nucleated RBC Auto Ql (Bld) 0.1 /100{WBC} 0-0.5 [facility] Partial Thromboplastin Timeo n 06-05-2023 aPTT Coag (Bld) [Time] 28.0 s Normal 25.1-36.5 [facility] Comment on above: Result Comment: PERF ORMED BY: [place] [address] PATHOLOGIST SUPERVISOR RIVETING LEVAR CASE M.D. Performed By: #### T 4T, ESR, URIC, CRP, TSH3 #### [facility] [address] [place] [address] [place] #### RA, CHUYITA #### [facility] , Platelet mean volume Auto (B ld) [Entitic vol]Ordered By: Anibal Valle on 06-05-2023 Platelet mean volume (Bld) [Entitic vol] 7.4 fL 6.3-10.7 [facility] Platelet poor plasma interna tional normalized ratio (INR) by coagulation assay (relatOrdered By: Anibal Valle on 06-05-2023 INR Coag (PPP) [Relative time] 1.0 {INR} [facility] Comment on above: INR Therapeutic Rang e [...] 06-05-2023 Platelets (Bld) [#/Vol] 336 10*3/uL 150-450 [facility] Potassium [Moles/volume] in Serum or PlasmaOrdered By: Anibal Valle on 06-05-2023 Potassium [Moles/Vol] 3.8 mmol/L 3.5-5.1 [facility] Prothrombin Time INRon 06-05 INR Coag (PPP) [Relative time] 1.0 {INR} Normal [facility] Comment on above: Result Comment: INR Therapeutic [...] T 4T, ESR, URIC, CRP, TSH3 #### [facility] [address] [place] [address] #### RA, CHUYITA #### [facility] , PT Coag (PPP) [Time] 12.0 s Normal 9.0-12.9 [facility] Comment on above: Performed By: #### T 4T, ESR, URIC, CRP, TSH3 #### [facility] [address] [place] [address] #### RA, CHUYITA #### [facility] , RBC Auto (Bld) [#/Vol]Ordere d By: Anibal Valle on 06-05-2023 RBC (Bld) [#/Vol] 4.29 10*6/uL 3.60-5.00 [facility] Serum or plasma anion gap de terminationOrdered By: Anibal Valel on 06-05-2023 Anion gap [Moles/Vol] 10.6 mmol/L 6.0-15.0 [facility] Sodium [Moles/volume] in Ser um or PlasmaOrdered By: Anibal Valle on 06-05-2023 Sodium [Moles/Vol] 138 mmol/L 136-145 [facility] Troponin I High Sensitivityo n 06-05-2023 Troponin I High Sensitivity 2.5 pg/mL Normal 0.0-15.0 [facility] Comment on above: Result Comment: PERF ORMED BY: [place] [address] PATHOLOGIST SUPERVISOR RIVETING LEVAR CASE M.D. Performed By: #### T 4T, ESR, URIC, CRP, TSH3 #### [address] #### RA, CHUYITA #### [facility] , Troponin I High Sensitivity 2.6 pg/mL Normal 0.0-15.0 [facility] Comment on above: Result Comment: PERF ORMED BY: [place] [address] PATHOLOGIST SUPERVISOR RIVETING LEVAR CASE M.D. Performed By: #### T 4T, ESR, URIC, CRP, TSH3 #### [address] #### RA, CHUYITA #### [facility] , Troponin I.cardiac [Mass/vol ume] in Serum or Plasma by Detection limit <= 0.01 ng/Ordered By: Anibal Valle on 06-05-2023 Troponin I.cardiac DL <= 0.01 ng/mL [Mass/Vol] 2.6 pg/mL 0.0-15.0 [facility] Urea nitrogen [Mass/volume] in Serum or PlasmaOrdered By: Anibal Valle on 06-05-2023 Urea nitrogen [Mass/Vol] 10 mg/dL 7-25 [facility] WBC Auto (Bld) [#/Vol]Ordere d By: Anibal Valle on 06-05-2023 WBC (Bld) [#/Vol] 4.4 10*3/uL 3.8-11.6 [facility] XR chest 1V portableon 06-05 XR chest 1V portable [facility] [place] [address] XRay Report Signed Patient: Mary Leal MR#: [id number] 863 : 1970 Acct:[id number] Age/Sex: 53 / F ADM Date: 06/05/23 [...] Andres Bullard M.D.06/05/2023 9:53 AM Dictation Location: [place] [address] Transcribed By: [facility] 06/05/23952 Dictated By: Andres Bullard DO 06/05/2352 Signed By: 06/05/23 0953 Normal [facility] 29on 05-31-2023 29 Addended by: KASSANDRA MONTAGUE on: 06/13/2023 03:40 PM Modules accepted: Orders Normal [facility] BASIC METABOLIC PANELon 07-2 Anion gap [Moles/Vol] 12 mmol/L Normal 7-[address] [facility] Comment on above: Performed By: #### L [id number] #### [facility] ([facility]AK[facility]) [address] [place] [address] Calcium [Mass/Vol] 9.8 mg/dL Normal 8.6-10.3 [facility] Comment on above: Performed By: #### L [id number] #### [facility] ([facility]) [address] [place] [address] Chloride [Moles/Vol] 105 mmol/L Normal 98-107 [facility] Comment on above: Performed By: #### L [id number] #### [facility] ([facility]AK[facility]) [address] [place] [address] CO2 [Moles/Vol] 27 mmol/L Normal 21-31 [facility] Comment on above: Performed By: #### L [id number] #### [facility] ([facility]) [address] [place] [address] Creatinine [Mass/Vol] 0.75 mg/dL Normal 0.60-1.[address] [facility] Comment on above: Performed By: #### L [id number] #### [facility] ([facility]) [address] [place] [address] GLOMERULAR FILTRATION RATE ML/MIN/1.73 SQ M.PREDICTED 96.3 mL/min/1.73m*2 Normal >60.0 [facility] Comment on above: Result Comment: [facility]???s estimated glomerular filtration rate (eGFR) will no [...] group of individuals. Performed By: #### L [id number] #### [facility] ([facility]) [address] [place] [address] Glucose [Mass/Vol] 103 mg/dL High 70-100 [facility] Comment on above: Performed By: #### L [id number] #### [facility] ([facility]) [address] [place] [address] Potassium [Moles/Vol] 4.6 mmol/L Normal 3.5-5.[address] [facility] Comment on above: Performed By: #### L [id number] #### [facility] ([facility]) [address] [place] [address] Sodium [Moles/Vol] 139 mmol/L Normal 136-145 [facility] Comment on above: Performed By: #### L [id number] #### [facility] ([facility]) [address] [facility] [place] [address] Urea nitrogen [Mass/Vol] 16 mg/dL Normal 7-25 [facility] Comment on above: Performed By: #### L [id number] #### [facility] ([facility]) [address] [place] [address] UREA NITROGEN/CREATININE (MASS RATIO) IN SER/PLAS 21.3 Normal [facility] Comment on above: Performed By: #### L [id number] #### [facility] ([facility]) [address] [place] [address] C-REACTIVE PROTEINon 023 C REACTIVE PROTEIN (MG/L) IN SER/PLAS 2.7 mg/L Normal 0.0-7.0 [facility] Comment on above: Performed By: #### L [id number] #### [facility] ([facility]) [address] [place] [address] CALPROTECTIN STOOLon 023 CALPROTECTIN, FECAL 171 ug/g High <=49 Un[facility] Comment on above: Result Comment: REFE RENCE INTERVAL: Calprotectin, Fecal by Immunoassay Less than 50 ug/g.........Normal 50-120 ug/g...............Borderline elevated, test should be re-evaluated in 4-6 weeks. 121 ug/g or greater.......Elevated Performed By: [employer] [address] [place] [address] Social Media Campaign Manager: Moisés Moreau MD, PhD Performed By: #### L [id number] #### [facility] ([facility]) [address] [place] [address] CBC WITH AUTO DIFFERENTIALon 05-31-2023 Basophils (Bld) [#/Vol] 0.06 10*3/uL Normal 0.00-0.20 [facility] Comment on above: Performed By: #### L [id number] #### [facility] ([facility]) [address] [place] [address] Basophils/100 WBC (Bld) 0.9 % Normal 0.0-1.0 [facility] Comment on above: Performed By: #### L [id number] #### [facility] ([facility]) [address] [place] [address] Eosinophils (Bld) [#/Vol] 0.09 10*3/uL Normal 0.00-0.50 [facility] Comment on above: Performed By: #### L [id number] #### [facility] ([facility]) [address] [place] [address] Eosinophils/100 WBC (Bld) 1.4 % Normal 0.0-6.0 [facility] Comment on above: Performed By: #### L [id number] #### [facility] ([facility]) [address] [place] [address] Erythrocyte distribution width (RBC) [Ratio] 12.7 % Normal 11.5-15.0 [facility] Comment on above: Performed By: #### L [id number] #### [facility] ([facility]) [address] [place] [address] ERYTHROCYTE MEAN CORPUSCULAR HEMOGLOBIN CONCENTRATION (G/DL) BY AUTOMATED 32.2 g/dL Normal 32.0-35.0 [facility] Comment on above: Performed By: #### L [id number] #### [facility] [address] [place] [address] Hematocrit (Bld) [Volume fraction] 37.9 % Normal 36.0-48.0 [facility] Comment on above: Performed By: #### L [id number] #### [facility] [address] [place] [address] Hemoglobin (Bld) [Mass/Vol] 12.2 g/dL Normal 12.0-15.0 [facility] Comment on above: Performed By: #### L [id number] #### [facility] ([facility]) [address] [place] [address] Immature granulocytes (Bld) [#/Vol] 0.02 10*3/uL Normal 0.00-0.20 [facility] Comment on above: Performed By: #### L [id number] #### [facility] ([facility]) [address] [place] [address] Immature granulocytes/100 WBC (Bld) 0.3 % Normal 0.0-1.0 [facility] Comment on above: Performed By: #### L [id number] #### [facility] ([facility]) [address] [facility] [place] [address] Lymphocytes (Bld) [#/Vol] 2.04 10*3/uL Normal 1.20-4.00 [facility] Comment on above: Performed By: #### L [id number] #### [facility] ([facility]) [address] [facility] [place] [address] Lymphocytes/100 WBC (Bld) 31.9 % Normal 20.0-45.0 [facility] Comment on above: Performed By: #### L [id number] #### [facility] ([facility]) [address] [place] [address] MCH (RBC) [Entitic mass] 27.0 pg Normal 27.0-33.0 [facility] Comment on above: Performed By: #### L [id number] #### [facility] ([facility]) [address] [place] [address] MCV (RBC) [Entitic vol] 83.8 fL Normal 82.0-98.0 [facility] Comment on above: Performed By: #### L [id number] #### [facility] ([facility]) [address] [place] [address] Monocytes (Bld) [#/Vol] 0.35 10*3/uL Normal 0.10-1.00 [facility] Comment on above: Performed By: #### L [id number] #### [facility] ([facility]) [address] [place] [address] Monocytes/100 WBC (Bld) 5.5 % Normal 5.0-12.0 [facility] Comment on above: Performed By: #### L [id number] #### [facility] ([facility]) [address] [place] [address] Neutrophils (Bld) [#/Vol] 3.83 10*3/uL Normal 1.60-7.60 [facility] Comment on above: Performed By: #### L [id number] #### [facility] ([facility]) [address] [place] [address] Neutrophils/100 WBC (Bld) 60.0 % Normal 40.0-72.0 [facility] Comment on above: Performed By: #### L [id number] #### [facility] ([facility]) [address] [place] [address] NRBC (PER 100 WBCS) BY AUTOMATED COUNT 0.0 % Normal 0 [facility] Comment on above: Performed By: #### L [id number] #### [facility] ([facility]) [address] [place] [address] PLATELETS (10*3/UL) IN BLOOD AUTOMATED COUNT 485 10*3/uL High 150-400 [facility] Comment on above: Performed By: #### L [id number] #### [facility] ([facility]) [address] [place] [address] RBC (Bld) [#/Vol] 4.52 10*6/uL Normal 3.80-5.00 [facility] Comment on above: Performed By: #### L [id number] #### [facility] ([facility]) [address] [place] [address] WBC (Bld) [#/Vol] 6.39 10*3/uL Normal 4.00-10.60 [facility] Comment on above: Performed By: #### L [id number] #### [facility] ([facility]) [address] [place] [address] ENTERIC BACTERIA, LIMITED PA RASITE DNA PANELon 05-31-2023 CAMPYLOBACTER SPECIES Negative Normal Negative [facility] Comment on above: Order Comment: Testi [...] the amplified DNA. Performed By: #### L [id number] ####[facility] ([facility] [place] [address] CRYPTOSPORIDIUM (HOMINIS AND PARVUM) Negative Normal Negative [facility] Comment on above: Order Comment: [...] the amplified DNA. Performed By: #### L [id number] ####[facility] ([facility])[address] [place] [address] ENTAMOEBA HISTOLYTICA Negative Normal Negative [facility] Comment on above: Order Comment: Testi [...] the amplified DNA. Performed By: #### L [id number] ####[facility] ([facility])[address] [place] [address] ENTEROTOXIGENIC E. COLI (ETEC) LT/ST Negative Normal Negative [facility] Comment on above: Order Comment: [...] the amplified DNA. Performed By: #### L [id number] ####[facility] ([facility])[address] [place] [address] GIARDIA LAMBLIA Negative Normal Negative [facility] Comment on above: Order Comment: Testi ng [...] the amplified DNA. Performed By: #### L [id number] ####[facility] (BEAKER)[address] [place] [address] PLESIOMONAS SHIGELLOIDES Negative Normal Negative [facility] Comment on above: Order Comment: [...] the amplified DNA. Performed By: #### L [id number] ####[facility] (BEAKER)[address] [place] [address] SALMONELLA SPECIES Negative Normal Negative [facility] Comment on above: Order Comment: Testi [...] the amplified DNA. Performed By: #### L [id number] ####[facility] (BEAKER)[address] [place] [address] SHIGA-LIKE TOXIN-PRODUCING E. COLI (STEC) STX1/STX2 Negative Normal Negative [facility] Comment on above: Order Comment: [...] the amplified DNA. Performed By: #### L [id number] ####[facility] (BEAKER)[address] [place] [address] SHIGELLA SPECIES Negative Normal Negative [facility] Comment on above: Order Comment: Testi [...] the amplified DNA. Performed By: #### L [id number] ####[facility] (BEAKER)[address] [place] [address] VIBRIO SPECIES Negative Normal Negative [facility] Comment on above: Order Comment: [...] the amplified DNA. Performed By: #### L [id number] ####[facility] (BEAKER)[address] [place] [address] YERSINIA ENTEROCOLITICA Negative Normal Negative [facility] Comment on above: Order Comment: [...] the amplified DNA. Performed By: #### L [id number] ####[facility] (BEAKER)[address] [place] [address] IGAon 05-31-2023 Magnesium [Mass/Vol] 265 mg/dL Normal 60-413 [facility] Comment on above: Performed By: #### L [id number] #### [facility] ([facility]ER) [address] [place] [address] Labon 05-31-2023 Lab [id number] Darrian Leal en 1970 F Date Provider Department Center 05/31/2023 2[facility] LAB RESOURCE MP DRAW Medical Pavi No family history on file Normal [facility] Office Visiton 05-31-2023 Follow-up visit [id number] Darrain Leal en 1970 F Date Provider Department Center 05/31/2023 [facility] GI Medical Pavi No family history on file Level of Service:92433 LA OFFICE/OUTPATIENT NEW MODERATE MDM 45-59 MINUTES Reason for Visit and Comments: Nausea [70] GERD [171198] Abdominal Pain [145246] New Patient [632] Normal [facility] PANCREATIC ELASTASE, FECALon 05-31-2023 PANCREATIC ELASTASE, FECAL 700 ug/g Normal >=100 [facility] Comment on above: Result Comment: REFE RENCE INTERVAL: Pancreatic Elastase Fecal by Immunoassay Less than 100 ug/g............Severe insufficiency 100 - 199 ug/g................Moderate insufficiency 200 ug/g or greater...........Normal INTERPRETIVE INFORMATION: Pancreatic Elastase Fecal by Immunoassay Reference intervals do not apply for infants less than one month old. Performed by [employer], [address] [place], [place] [id number] [email or web address], Moisés Moreau MD, PHD, Lab. Director Performed By: #### L [id number] #### [facility] ([facility]) [address] [place] [address] SEDIMENTATION RATEon 023 SEDIMENTATION RATE, ERYTHROCYTE 13 mm/hr Normal <=20 [facility] Comment on above: Performed By: #### L [id number] #### [facility] (BEAKER) [address] [place] [address] TISSUE TRANSGLUTAMINASE, IGA on 05-31-2023 TISSUE TRANSGLUTAMINASE, IGA <2 Normal 0-3 [facility] Comment on above: Result Comment: INTE RPRETIVE [...] positive predictive value for disease. Performed By: [employer] [address] [place] [address] Social Media Campaign Manager: Moisés Moreau MD, PhD Performed By: #### L [id number] #### [facility] (BEAKER) [address] [place] [address] Refillon 05-27-2023 Refill [id number] [place] Lealist en 1970 F Date Provider Department Center 05/27/2023 GIANA JAMES [facility] Gerardo Heal No family history on file Reason for Visit and Comments: Med Refill [[id number]] Normal [facility] [facility] Telemedici neon 05-22-2023 Behavioral Health Telemedicine [id number] [place] Lealisten 1970 Date Provider Department [place] 05/22/202358473-JEBERADHA CASTREJON [facility] Gerardo Heal No family history on file Reason for Visit and Comments: Anxiety [9] Pain [136] Normal [facility] Orders Onlyon 05-18-2023 Orders Only [id number] [place] Lealist en 1970 Provider Department [place] 05/18/2023 GIANA JAMES [facility] Gerardo Heal No family history on file Normal [facility]al [facility] Telemedici neon 05-17-2023 [facility] Telemedicine [id number] [place] Lealisten 1970 Date Provider Department [place] 05/17/2023 GIANA JAMES [facility] Gerardo Heal No family history on file Level of Service:34495 LA OFFICE/OUTPATIENT ESTABLISHED MOD MDM 30-39 MIN Reason for Visit and Comments: Telehealth Audio/video Visit [871] Normal [facility] Telemedicine [id number] [place] Lealisten 1970 F Date Provider Department [place] 05/17/202346498-COMRRADHA STARK [facility] Gerardo Heal No family history on file Reason for Visit and Comments: Anxiety [9] MDD (Major Depressive Disorder) [401] Normal [facility] Telemedici neon 04-17-2023 Behavioral [facility] Telemedicine [id number] ElvisMary 1970 Provider Department [place] 04/17/2023 CARMEN CHRISTIANSON [facility] Gerardo [facility] No family history on file Reason for Visit and Comments: Therapy [849] Telehealth Audio/video Visit [871] - Via WebEx [facility] Documentationon 04-14-2023 Documentation [id number] Darrian Leal jonathan 1970 Provider Department [place] 04/14/2023 CARMEN CHRISTIANSON [facility] Gerardo [facility] No family history on file Reason for Visit and Comments: Transfer summary [Other] - Transferring therapy services [facility] Telemedici neon 04-10-2023 Behavioral Health Telemedicine [id number] ElvisMary 1970 Provider Department [place] 04/10/2023 CARMEN CHRISTIANSON [facility] Gerardo [facility] No family history on file Reason for Visit and Comments: Therapy [849] Normal [facility] CBC AUTO DIFFon 04-05-2023 BASO # 0.0 103/ul Normal 0.0-0.1 [facility] Comment on above: Performed By: #### L ACT #### [facility] [address] [place] [address] Dr. Mirian Velasco Basophils/100 WBC (Bld) 0.8 % Normal 0.2-2.0 [facility] Comment on above: Performed By: #### L ACT #### [facility] [address] [address] [address] Mirian Velasco EO # 0.1 103/ul Normal 0.0-0.7 [facility] Comment on above: Performed By: #### L ACT #### [facility] [address] [address] [address] Mriian Velasco Eosinophils/100 WBC (Bld) 1.1 % Normal 0.9-7.0 [facility] Comment on above: Performed By: #### L ACT #### [facility] [address] [place] [address] Dr. Mirian Velasco Erythrocyte distribution width (RBC) [Ratio] 13.1 % Normal 11.0-15.0 [facility] Comment on above: Performed By: #### L ACT #### [facility] [address] [place] [address] Dr. Mirian Velasco Hematocrit (Bld) [Volume fraction] 37.6 % Normal 36.0-48.0 [facility] Comment on above: Performed By: #### L ACT #### [facility] [address] [place] [address] Dr. Mirian Velasco Hemoglobin (Bld) [Mass/Vol] 12.4 g/dL Normal 12.0-16.0 [facility] Comment on above: Performed By: #### L ACT #### [facility] [address] [place] [address] Dr. Mirian Velasco IG # 0.01 10e3/ul Normal 0.00-0.03 [facility] Comment on above: Performed By: #### L ACT #### [facility] [address] [place] [address] Dr. Mirian Velasco IG % 0.2 % Normal 0.0-0.5 [facility] Comment on above: Performed By: #### L ACT #### [facility] [address] [place] [address] Dr. Mirian Velasco LYMPH # 2.5 103/ul Normal 1.2-3.8 [facility] Comment on above: Performed By: #### L ACT #### [facility] [address] [place] [address] Dr. Mirian Velasco Lymphocytes/100 WBC (Bld) 46.2 % Normal 20.5-60.0 [facility] Comment on above: Performed By: #### L ACT #### [facility] [address] [place] [address] Dr. Mirain Velasco MANUAL DIFF REQ NO Normal [facility] Comment on above: Performed By: #### L ACT #### [facility] [address] [place] [address] Dr. Mirian Velasco MCH (RBC) [Entitic mass] 27.1 pg Normal 26.7-34.0 [facility] Comment on above: Performed By: #### L ACT #### [facility] [address] [place] [address] Dr. Mirian Velasco MCHC (RBC) [Mass/Vol] 33.0 g/dL Normal 29.9-35.2 [facility] Comment on above: Performed By: #### L ACT #### [facility] [address] [place] [address] Dr. Mirian Velasco MCV (RBC) [Entitic vol] 82.3 fL Normal 81.0-99.0 [facility] Comment on above: Performed By: #### L ACT #### [facility] [address] [place] [address] Dr. Mirian Velasco MONO # 0.4 103/ul Normal 0.3-0.8 [facility] Comment on above: Performed By: #### L ACT #### [facility] [address] [place] [address] Dr. Mirian Velasco Monocytes/100 WBC (Bld) 7.9 % Normal 1.7-12.0 [facility] Comment on above: Performed By: #### L ACT #### [facility] [address] [place] [address] Dr. Mirian Velasco NEUT # 2.3 103/ul Normal 1.4-6.5 [facility] Comment on above: Performed By: #### L ACT #### [facility] [address] [place] [address] Dr. Mirian Velasco Neutrophils/100 WBC (Bld) 43.8 % Normal 43.0-75.0 [facility] Comment on above: Performed By: #### L ACT #### [facility] [address] [place] [address] Dr. Mirian Velasco Platelet mean volume (Bld) [Entitic vol] 9.2 fL Critically low 9.5-13.5 [facility] Comment on above: Performed By: #### L ACT #### [facility] [address] [place] [address] Dr. Mirian Velasco PLT 318 103/ul Normal 150-450 [facility] Comment on above: Performed By: #### L ACT #### [facility] [address] [address] [address] Mirian Velasco RBC 4.57 106/ul Normal 4.20-5.40 [facility] Comment on above: Performed By: #### L ACT #### [facility] [address] [address] [address] Mirian Velasco WBC 5.3 103/ul Normal 4.0-11.0 [facility] Comment on above: Performed By: #### L ACT #### [facility] [address] [address] [address] Mirian Velasco PROF CHEM 8 (BAS METB)on Anion gap [Moles/Vol] 19.0 mmol/L Normal [facility] Comment on above: Performed By: #### H FAUSTO, BMP ####[facility] [address] [address]Dr. Mirian Velasco Calcium [Mass/Vol] 9.6 mg/dL Normal 8.5-10.1 [facility] Comment on above: Performed By: #### H FAUSTO, BMP ####[facility] [address] [address]Dr. Mirian Velasco Chloride [Moles/Vol] 103 mmol/L Normal 98-107 [facility] Comment on above: Performed By: #### H ELENAPN, BMP ####[facility] [address] [address]Dr. Mirian Velasco CO2 [Moles/Vol] 23.1 mmol/L Normal 21.0-32.0 [facility] Comment on above: Performed By: #### H ELENAPN, BMP ####[facility] [address] [address]Dr. Mirian Velasco Creatinine [Mass/Vol] 0.84 mg/dL Normal 0.55-1.02 [facility] Comment on above: Performed By: #### H ELENAPN, BMP ####[facility] [address] [id number]. Mirian Velasco EGFR-AF MAURITIAN >60 Normal >=60 [facility] Comment on above: Performed By: #### H FAUSTO, BMP ####[facility] [address] [id number]. Mirian Velasco EGFR-NON AF MAURITIAN >60 Normal >=60 [facility] Comment on above: Performed By: #### H FAUSTO, BMP ####[facility] [address] [id number]. Mirian Velasco Glucose [Mass/Vol] 129 mg/dL Critically high 74-106 [facility] Comment on above: Performed By: #### H FAUSTO, BMP ####[facility] [address] [address]Dr. Mirian Velasco Potassium [Moles/Vol] 3.1 mmol/L Critically low 3.5-5.1 [facility] Comment on above: Performed By: #### H FAUSTO, BMP ####[facility] [address] [place], [place] [address]Dr. Mirian Velasco Sodium [Moles/Vol] 142 mmol/L Normal 136-145 [facility] Comment on above: Performed By: #### H FAUSTO, BMP ####[facility] [address] [address]Dr. Mirian Velasco Urea nitrogen [Mass/Vol] 12.0 mg/dL Normal 7.0-18.0 [facility] Comment on above: Performed By: #### Sukumar LAMBERT, BMP ####[facility] [address] [address]Dr. Mirian Velasco Urea nitrogen/Creatinine [Mass ratio] 14.3 mg/mg Normal [facility] Comment on above: Performed By: #### H FAUSTO, BMP ####[facility] [address] [address]Dr. Mirian Velasco TROPONIN, HIGH SENSITIVITYon 04-05-2023 HSTROP 5.6 pg/mL Normal 4.0-51.3 [facility] Comment on above: Result Comment: CUT- OFF POINTS HAVE BEEN ESTABLISHED BASED ON THE FOURTH UNIVERSAL DEFINITIONS OF MYOCARDIAL INFARCTION. THE UPPER REFERENCE LIMIT (URL) OF TROPONIN, DEFINED THE 99TH PERCENTILE OF cTnI DISTRIBUTION IN A REFERENCE POPULATION, HAS BEEN CONFIRMED THE DECISION THRESHOLD FOR RI DIAGNOSIS. Performed By: #### H FAUSTO, BMP ####[facility] [address] [place], [place] [address]Zp. Mirian Velasco Refillon 03-21-2023 Refill [id number] Darrian Leal jonathan 1970 F Date Provider Department Center 03/21/2023 167GIANA JARQUIN [facility] Gerardo Heal No family history on file Reason for Visit and Comments: Med Refill [190619] Normal [facility] Behavioral Health Telemedici neon 03-20-2023 Behavioral Health Telemedicine [id number] Darrian Lealen 1970 F Date Provider Department Center 03/20/2023 3941-CARMEN DORSEY [facility] Gerardo Heal No family history on file Reason for Visit and Comments: Therapy [849] Normal [facility] FAT, FECAL QUALon 03-16-2023 FAT, FECAL - NEUTRAL Normal Normal Normal [facility] Comment on above: Order Comment: Speci men Type: STOOL SPECIMENOrdering Facility: [facility] Address: [address] [place] [address] Performed By: #### F FATQL ####[employer] [facility] [id number] [place] [address] FAT, FECAL - SPLIT Normal Normal Normal [facility] Comment on above: Order Comment: Speci men Type: STOOL SPECIMENOrdering Facility: [facility] Address: [address] [place] [address] Result Comment: INTE RPRETIVE INFORMATION: Fecal Fat Qualitative Neutral fats include the monoglycerides, diglycerides, and triglycerides while split fats are the free fatty acids that are liberated from them. Impaired synthesis or secretion of pancreatic enzymes or bile may cause an increase in neutral fats while an increase in split fats suggests impaired absorption of nutrients. Performed By: [employer] [address] [place] [id number] [employer] Campaign Manager: Moisés Moreau MD, PhD Performed By: #### F FATQL ####[facility] [id number] [place] [address] [facility] Telemedici blanchard 03-06-2023 [facility] Telemedicine [id number] Mary Leal 1970 F Date Provider Department Center 03/06/2023 CARMEN CHRISTIANSON [facility] Gerardo Heal No family history on file Reason for Visit and Comments: Therapy [849] Normal [facility] CBC AUTO DIFFon 03-06-2023 BASO # 0.1 103/ul Normal 0.0-0.1 [facility] Comment on above: Performed By: #### L ACT #### [facility] [address] [place] [address] Dr. Mirian Velasco Basophils/100 WBC (Bld) 0.8 % Normal 0.2-2.0 [facility] Comment on above: Performed By: #### L ACT #### [facility] [address] [place] [address] Dr. Mirian Velasco EO # 0.1 103/ul Normal 0.0-0.7 [facility] Comment on above: Performed By: #### L ACT #### [facility] [address] [place] [address] Dr. Mirian Velasco Eosinophils/100 WBC (Bld) 1.4 % Normal 0.9-7.0 [facility] Comment on above: Performed By: #### L ACT #### [facility] [address] [place] [address] Dr. Mirian Velasco Erythrocyte distribution width (RBC) [Ratio] 13.1 % Normal 11.0-15.0 [facility] Comment on above: Performed By: #### L ACT #### [facility] [address] [place] [address] Dr. Mirian Velasco Hematocrit (Bld) [Volume fraction] 37.9 % Normal 36.0-48.0 [facility] Comment on above: Performed By: #### L ACT #### [facility] [address] [place] [address] Dr. Mirian Velasco Hemoglobin (Bld) [Mass/Vol] 12.7 g/dL Normal 12.0-16.0 [facility] Comment on above: Performed By: #### L ACT #### [facility] [address] [place] [address] Dr. Mirian Velasco IG # 0.01 10e3/ul Normal 0.00-0.03 [facility] Comment on above: Performed By: #### L ACT #### [facility] [address] [place] [address] Dr. Mirian Velasco IG % 0.2 % Normal 0.0-0.5 [facility] Comment on above: Performed By: #### L ACT #### [facility] [address] [place] [address] Dr. Mirian Velasco LYMPH # 1.8 103/ul Normal 1.2-3.8 [facility] Comment on above: Performed By: #### L ACT #### [facility] [address] [place] [address] Dr. Mirian Velasco Lymphocytes/100 WBC (Bld) 27.2 % Normal 20.5-60.0 [facility] Comment on above: Performed By: #### L ACT #### [facility] [address] [place] [address] Dr. Mirian Velasco MANUAL DIFF REQ NO Normal [facility] Comment on above: Performed By: #### L ACT #### [facility] [address] [place] [address] Dr. Mirian Velasco MCH (RBC) [Entitic mass] 27.5 pg Normal 26.7-34.0 [facility] Comment on above: Performed By: #### L ACT #### [facility] [address] [place] [address] Dr. Mirian Velasco MCHC (RBC) [Mass/Vol] 33.5 g/dL Normal 29.9-35.2 [facility] Comment on above: Performed By: #### L ACT #### [facility] [address] [place] [address] Dr. Mirian Velasco MCV (RBC) [Entitic vol] 82.0 fL Normal 81.0-99.0 [facility] Comment on above: Performed By: #### L ACT #### [facility] [address] [place] [address] Dr. Mirian Velasco MONO # 0.4 103/ul Normal 0.3-0.8 [facility] Comment on above: Performed By: #### L ACT #### [facility] [address] [place] [address] Dr. Mirian Velasco Monocytes/100 WBC (Bld) 5.5 % Normal 1.7-12.0 [facility] Comment on above: Performed By: #### L ACT #### [facility] [address] [place] [address] Dr. Mirian Velasco NEUT # 4.3 103/ul Normal 1.4-6.5 [facility] Comment on above: Performed By: #### L ACT #### [facility] [address] [place] [address] Dr. Mirian Velasco Neutrophils/100 WBC (Bld) 64.9 % Normal 43.0-75.0 [facility] Comment on above: Performed By: #### L ACT #### [facility] [address] [place] [address] Dr. Mirian Velasco Platelet mean volume (Bld) [Entitic vol] 9.4 fL Critically low 9.5-13.5 [facility] Comment on above: Performed By: #### L ACT #### [facility] [address] [place] [address] Dr. Mirian Vealsco PLT 317 103/ul Normal 150-450 [facility] Comment on above: Performed By: #### L ACT #### [facility] [address] [place] [address] Dr. Mirian Velasco RBC 4.62 106/ul Normal 4.20-5.40 [facility] Comment on above: Performed By: #### L ACT #### [facility] [address] [place] [address] Dr. Mirian Velasco WBC 6.6 103/ul Normal 4.0-11.0 [facility] Comment on above: Performed By: #### L ACT #### [facility] [address] [address] [address] Mirian Velasco CULTURE BLOODon 03-06-2023 Microscopic examination of blood, culture Culture Observations: NO GROWTH AT 5 DAYS. Normal [facility] Comment on above: Performed By: #### B LDCX2 ####[facility] [address] [id number]. Mirian Velasco Microscopic examination of blood, culture Culture Observations: NO GROWTH AT 5 DAYS. Normal [facility] Comment on above: Performed By: #### B LDCX1 #### [facility] [address] [address] [address] Mirian Velasco LACTATE/LACTIC ACIDon 2022 Lactate [Moles/Vol] 2.2 mmol/L Critically high 0.4-2.0 [facility] Comment on above: Performed By: #### L ACT #### [facility] [address] [place] [address] Dr. Mirian Velasco LIPASEon 03-06-2023 Lipase [Catalytic activity/Vol] 53.0 U/L Critically low 73.0-393.0 [facility] Comment on above: Performed By: #### L ACT #### [facility] [address] [place] [address] Dr. Mirian Velasco PROF 14(COMP METB)on 023 Albumin [Mass/Vol] 3.4 g/dL Normal 3.4-5.0 [facility] Comment on above: Performed By: #### L ACT #### [facility] [address] [place] [address] Dr. Mirian Velasco Albumin/Globulin [Mass ratio] 1.0 {ratio} Normal [facility] Comment on above: Performed By: #### L ACT #### [facility] [address] [place] [address] Dr. Mirian Velasco ALP [Catalytic activity/Vol] 123 U/L Critically high 46-116 [facility] Comment on above: Performed By: #### L ACT #### [facility] [address] [place] [address] Dr. Mirian Velasco ALT [Catalytic activity/Vol] 33 U/L Normal 14-59 [facility] Comment on above: Performed By: #### L ACT #### [facility] [address] [address] [address] Mirian Velasco Anion gap [Moles/Vol] 13.1 mmol/L Normal [facility] Comment on above: Performed By: #### L ACT #### [facility] [address] [address] [address] Mirian Velasco AST [Catalytic activity/Vol] 31 U/L Normal 15-37 [facility] Comment on above: Performed By: #### L ACT #### [facility] [address] [address] [address] Mirina Velasco Bilirubin [Mass/Vol] 0.3 mg/dL Normal 0.2-1.0 [facility] Comment on above: Performed By: #### L ACT #### [facility] [address] [address] [address] Mirian Velasco Calcium [Mass/Vol] 8.9 mg/dL Normal 8.5-10.1 [facility] Comment on above: Performed By: #### L ACT #### [facility] [address] [address] [address] Mirian Velasco Chloride [Moles/Vol] 107 mmol/L Normal 98-107 [facility] Comment on above: Performed By: #### L ACT #### [facility] [address] [address] [address] Mirian Velasco CO2 [Moles/Vol] 25.6 mmol/L Normal 21.0-32.0 [facility] Comment on above: Performed By: #### L ACT #### [facility] [address] [address] [address] Mirian Velasco Creatinine [Mass/Vol] 0.70 mg/dL Normal 0.55-1.02 [facility] Comment on above: Performed By: #### L ACT #### [facility] [address] [address] [address] Mirian Velasco EGFR-AF MAURITIAN >60 Normal >=60 [facility] Comment on above: Performed By: #### L ACT #### [facility] [address] [address] [address] Mirian Velasco EGFR-NON AF MAURITIAN >60 Normal >=60 [facility] Comment on above: Performed By: #### L ACT #### [facility] [address] [address] [address] Mirian Velasco Globulin (S) [Mass/Vol] 3.4 g/dL Normal [facility] Comment on above: Performed By: #### L ACT #### [facility] [address] [address] [address] Mirian Velasco Glucose [Mass/Vol] 125 mg/dL Critically high 74-106 [facility] Comment on above: Performed By: #### L ACT #### [facility] [address] [address] [address] Mirian Velasco Potassium [Moles/Vol] 3.7 mmol/L Normal 3.5-5.1 [facility] Comment on above: Performed By: #### L ACT #### [facility] [address] [address] [address] Mirian Velasco Protein [Mass/Vol] 6.8 g/dL Normal 6.4-8.2 [facility] Comment on above: Performed By: #### L ACT #### [facility] [address] [address] [address] Mirian Velasco Sodium [Moles/Vol] 142 mmol/L Normal 136-145 [facility] Comment on above: Performed By: #### L ACT #### [facility] [address] [address] [address] Mirian Velasco Urea nitrogen [Mass/Vol] 16.0 mg/dL Normal 7.0-18.0 [facility] Comment on above: Performed By: #### L ACT #### [facility] [address] [address] [address] Mirian Velasco Urea nitrogen/Creatinine [Mass ratio] 22.9 mg/mg Normal [facility] Comment on above: Performed By: #### L ACT #### [facility] [address] [address] [address] Mirian Velasco PROTIMEon 03-06-2023 INR Coag (PPP) [Relative time] {INR} Normal [facility] Comment on above: Performed By: #### P T #### [facility] [address] [place] [address] Dr. Mirian Velasco INR GUIDELINES SEE BELOW Normal [facility] Comment on above: Result Comment: SAMEER RED INR: 2.0 - 3.0 CONDITIONS NOT LISTED BELOW 2.5 - 3.5 FOR PROSTHETIC HEART VALVE REPLACEMENT 2.5 - 3.5 RECURRENT THROMBOSIS Performed By: #### P T #### [facility] [address] [place] [address] Dr. Mirian Velasco PT Coag (PPP) [Time] 9.8 s Normal 9.0-11.6 [facility] Comment on above: Performed By: #### P T #### [facility] [address] [place] [address] Dr. Mirian Velasco TROPONIN, HIGH SENSITIVITYon 03-06-2023 HSTROP 4.4 pg/mL Normal 4.0-51.3 [facility] Comment on above: Result Comment: CUT- OFF POINTS HAVE BEEN ESTABLISHED BASED ON THE FOURTH UNIVERSAL DEFINITIONS OF MYOCARDIAL INFARCTION. THE UPPER REFERENCE LIMIT (URL) OF TROPONIN, DEFINED THE 99TH PERCENTILE OF cTnI DISTRIBUTION IN A REFERENCE POPULATION, HAS BEEN CONFIRMED THE DECISION THRESHOLD FOR RI DIAGNOSIS. Performed By: #### L ACT #### [facility] [address] [place] [address] Dr. Mirian Velasco Bacteria identified Aer cx N om (Unsp spec)Ordered By: Niecy Duron on 03-02-2023 Superficial Wound Culture Methicillin Resis Staph Aureus [facility] Superficial Wound Cultureon 03-02-2023 Superficial Wound Culture ORGANISM: Methicillin Resis Staph Aureus (O:MRSA) Quantity of Growth Heavy Growth Aerobic CORRINA Charge (PCMIC38) SUSCEPTIBILITY ORGANISM: O:MRSA ANTIBIOTIC INTERPRETATION CORRINA Azithromycin S <2 Ceftaroline S <0.5 Ciprofloxacin S <1 Clindamycin S 0.5 Daptomycin S 1 Linezolid S 4 Oxacillin R >2 Penicillin R 2 Tetracycline S <4 Trimethoprim/Sulfamethoxa zole S <0.5 Vancomycin S 2 S = [...] RESISTANT TO ALL B-LACTAM DRUGS. PERFORMED BY: [place] [address] PATHOLOGIST SUPERVISOR RIVETING LEVAR CASE M.D. [facility] Comment on above: Performed By: #### T 4T, ESR, URIC, CRP, TSH3 #### [facility] [address] [place] [address] #### RA, CHUYITA #### [facility] , Clinical Supporton 3 Clinical Support [id number] Darrian Leal 1970 F Date Provider Department Center 02/27/2023 [facility]MEN [facility] Gerardo [facility] No family history on file Reason for Visit and Comments: Therapy [849] [facility] 36on 02-20-2023 36 I just sent the scri pt over and signed her note. [facility] Behavioral Health Telemedici neon 02-20-2023 Behavioral Health Telemedicine [id number] Mary Leal 1970 F Date Provider Department [place] 02/20/2023 [facility] Gerardo Pool No family history on file Reason for Visit and Comments: Therapy [849] [facility] CT LSPINE WO CONon 3 CT LSPINE [...] by: NANCY BELLE Date: 2023-02-19 06:42 Normal [facility] 36on 02-17-2023 36 Tipple Tender spoke with rigoberto montemayor in regards to lunesta, patient reports Giana was increasing the lunesta to 3mg, sql report writer read last note plan reports 2mg lunesta. Tipple Tender will attempt to contact Giana Morales. Tipple Tender is covering while Giana is out of the clinic. Normal [facility] 36 Patient needs Lunest a sent to [facility] in [place]. Had an appt yesterday with you, and pharmacy does not have. Normal [facility] Telephoneon 02-17-2023 Telephone [id number] Darrian Leal 1970 F Date Provider Department Center 02/17/2023 PONCE MCKEON [facility] Gerardo Heal No family history on file [facility] Telephone [id number] Denver Lealsybil en 1970 F Date Provider Department [place] 02/17/2023 GIANA JAMES [facility] Gerardo Heal No family history on file Reason for Visit and Comments: Medication Question [827] - Pt is upset that her Lunesta has not been increased as discussed. Normal [facility] Behavioral Health Telemedici neon 02-16-2023 Behavioral Health Telemedicine [id number] Mary Leal 1970 F Date Provider Department Center 02/16/2023 GIANA JAMES [facility] Gerardo Heal No family history on file Level of Service:13533 LA OFFICE/OUTPATIENT ESTABLISHED MOD MDM 30-39 MIN Reason for Visit and Comments: Telehealth Audio/video Visit [871] - [email or web address] [facility] Behavioral Health Telemedici neon 02-13-2023 Behavioral Health Telemedicine [id number] Mary Leal 1970 Date Provider Department Center 02/13/2023 YohanaJOSIE CARMEN [facility] Gerardo [facility] No family history on file Reason for Visit and Comments: Therapy [849] - [facility] Behavioral Health Telemedici neon 02-06-2023 Behavioral Health Telemedicine [id number] Mary Leal 1970 Date Provider Department Center 02/06/2023 YohanaJOSIE CARMEN [facility] Gerardo [facility] No family history on file Reason for Visit and Comments: Therapy [849] [facility] Behavioral Health Telemedici neon 02-02-2023 Behavioral Health Telemedicine [id number] Mary Leal 1970 Provider Department Center 02/02/2023 GIANA JAMES [facility] Gerardo [facility] No family history on file Level of Service:42037 LA OFFICE/OUTPATIENT ESTABLISHED MOD MDM 30-39 MIN Reason for Visit and Comments: Telehealth Audio/video Visit [871] - [email or web address] [facility] Behavioral Health Telemedici neon 01-23-2023 Behavioral Health Telemedicine [id number] Mary Leal 1970 Provider Department Center 01/23/2023 YohanaJOSIE CARMEN [facility] No family history on file Reason for Visit and Comments: Therapy [849] [facility] 36on 01-16-2023 36 Spoke with pt to raymond mcgill her appointment this morning was cancelled per her request. Pt stated she wasn't feeling well. Her next appointment is scheduled for 01/23/23. [facility] 36 Patient called and w ants a return call from provider. [facility] Hussain 01-16-2023 MARIAN Telephone (BHAVIN) ----- MARY LEAL ([id number]) 1970 F Date Time Provider Department 01/16/23 MOUNIKA HERNANDEZ During your visit today, we recorded the following information about you: Mounika Hernandez PA-C 01/16/2023 1:09 PM Signed Patient was scheduled for virtual PACC appt at 1300 today. Patient did not check in for visit. Called patient at [phone] to see if they needed any assistance [...] the AM and 4 mg PM - llnhcbpkhew-tftaynzdx-xaj anter (TRELEGY ELLIPTA) 100-62.5-25 mcg Inhale 1 Puff [...] Encounter Status:Closed by MOUNIKA HERNANDEZ on 01/16/23 Normal [facility] HISTORY PHYSICALon HISTORY PHYSICAL HNO ID: [id number] Author: Mounika Hernandez PA-C Service: ? Author Type: Physician Tumbler Tender Type: HANDP Filed: 01/16/2023 1:24 PM Note Text: This is a virtual visit using [employer] video visit. It required patient-provider interaction for the medical decision making as documented below. I have communicated my name and active licensure. The patient's identity and physical location were verified at the time of this visit. Either the patient or their legal patient access representative has been informed of the risks and benefits of and alternatives to treatment through a remote evaluation and consents to proceed with the evaluation remotely. Surgeon: Winston Hannah DO Type of surgery: GEN SURG: POP Patient scheduled for surgery on 02/08/23 . Surgery Location: [facility] Diagnosis: Preop examination (primary encounter diagnosis) [...] in the AM and 4 mg PM dmqsqlbiltt-qkntlwxjs-vpe anter (TRELEGY ELLIPTA) 100-62.5-25 mcg Inhale 1 Puff [...] PA-C January 16, 2023 12:36 PM Normal [facility] Telephoneon 01-16-2023 Telephone [id number] Darrian Leal 1970 F Date Provider Department Center 01/16/2023 [facility] Gerardo Heal No family history on file Reason for Visit and Comments: Appointment [375] Normal [facility] Telephone [id number] Darrian Leal en 1970 F Date Provider Department Center 01/16/2023 SE SINGH [facility] Gerardo Heal No family history on file [facility]ne [facility] ----- MARY LEAL ([id number]) 1970 F Date Time Provider Department 01/11/23 WINSTON HANNAH GENADELINA During your visit today, we recorded the following information about you: Berta Ann RN 01/11/2023 10:08 AM Signed Procedure pended for 02/08/23. Pt aware of need for PACC. Pre-op instructions reviewed, will send to pt's [facility], per pt request. Post op appt scheduled. No other questions at this time. Berta FRIEDMANN, RN Specialty Registered Land Surveyor Allergies As of Date: 01/11/2023 Noted Allergy Reaction RISPERIDONE 07/27/2021 5 - Intolerance Comments: Breast discharge Date Reviewed: 12/15/2022 Reviewed by: Mary Obrien MD - Fully Assessed Reason for Visit: Schedule Procedure [Other] Primary Visit Diagnosis:Gastroparesis [K31.84] Order(s):EGD - THERAPEUTIC, EUS, OR TUBE INTERVENTIONS [GI2] Order #: [id number] FUTURE Prescriptions as of 01/11/2023 - sucralfate [...] the AM and 4 mg PM - moanrpfpavc-ryocpblzp-wmd anter (TRELEGY ELLIPTA) 100-62.5-25 mcg Inhale 1 Puff [...] Encounter Status:Closed by WINSTON HANNAH on 01/11/23 [facility] Refillon 01-11-2023 Refill [id number] Darrian Leal en 1970 Provider Department Center 01/11/2023 GIANA JAMES [facility] Gerardo Heal No family history on file Reason for Visit and Comments: Med Refill [811689] Normal [facility] Behavioral Health Telemedici neon 01-06-2023 Behavioral Health Telemedicine [id number] Mary Leal 1970 Provider Department Center 01/06/2023 ANNETTE BRYAN [facility] Gerardo Heal No family history on file Level of Service:74661 LA OFFICE/OUTPATIENT ESTABLISHED LOW MDM 20-29 MIN Reason for Visit and Comments: Telehealth Audio/video Visit [871] Normal [facility] Refillon 01-03-2023 Refill [id number] Darrian Leal en 1970 Date Provider Department Center 01/03/2023 ANNETTE BRYAN [facility] Gerardo Heal No family history on file Reason for Visit and Comments: Med Refill [[id number]] Normal [facility] Behavioral Health Telemedici neon 01-02-2023 Behavioral Health Telemedicine [id number] Mary Leal 1970 F Date Provider Department Center 01/02/2023 3941-CARMEN DORSEY [facility] Gerardo [facility] No family history on file Reason for Visit and Comments: Therapy [849] Telehealth Audio/video Visit [871] - WebEx Normal [facility] XR ESOPHAGRAMon 12-26-2022 XR ESOPHAGRAM * * [...] the procedure. IMPRESSION: SMALL VOLUME GASTROESOPHAGEAL REFLUX. Instructional Material Director: PSCSiria Transcribe Date/Time: Dec 26 2022 3:20P Dictated by : MERISSA AGARWAL, DO This examination was interpreted and the report reviewed and electronically signed by: TARIQ MILLER MD on Dec 26 2022 3:25PM EST [id number] [facility] Behavioral Health Telemedici neon 12-12-2022 Behavioral Health Telemedicine [id number] Mary Leal 1970 Date Provider Department Center 12/12/2022 KeithMeredithCARMEN GALINDO [facility] Gerardo Heal No family history on file Reason for Visit and Comments: Therapy [849] [facility] Behavioral Health Telemedici neon 12-09-2022 Behavioral Health Telemedicine [id number] Mary Leal 1970 Date Provider Department Center 12/09/2022 ANNETTE BRYAN [facility] Gerardo Heal No family history on file Level of Service:40199 LA OFFICE/OUTPATIENT ESTABLISHED MOD MDM 30-39 MIN Reason for Visit and Comments: Telehealth Audio/video Visit [621] - [email or web address] [facility] CNPNon 12-09-2022 CNPN Telephone ([facility]) ----- MARY LEAL ([id number]) 1970 Date Time Provider Department 12/09/22 MARY OBRIEN [facility] During your visit today, we recorded the following information about you: Madyson Villanueva Pss 12/09/2022 3:23 PM Signed Patient called and left message regarding post operative 03/2022 total laparoscopic colectomy and concerns regarding symptoms and follow up testing return call to [phone] See Wong RN 12/12/2022 9:[address] Obrien sent my chart message to respond to this phone encounter and previous my chart message. Allergies As of Date: 12/09/2022 Noted Allergy Reaction RISPERIDONE 07/27/2021 5 - Intolerance Comments: Breast discharge Date Reviewed: 12/07/2022 Reviewed by: Marley Mitchell RN - Fully Assessed Reason for Visit: Patient Question [6737] Prescriptions as of 12/12/2022 - sucralfate (CARAFATE) [...] the AM and 4 mg PM - zljpmfxdgam-owpgkgnwy-uwg anter (TRELEGY ELLIPTA) 100-62.5-25 mcg Inhale 1 Puff [...] Encounter Status:Closed by SEE WONG on 12/12/22 [facility] CNP[facility] Telephone (GASTSP) ----- MARY LEAL ([id number]) 1970 F Date Time Provider Department 12/08/22 [...] patient Summary: As noted Concerns: Procedure results Registered Land Surveyor plan for next outreach: Will follow up Signature Nelsy Pepe RN December 08, 2022 Isra Masters DO 12/09/2022 10:26 AM Signed She has 20-21cm of colon left and based on the smart pill it to 17hrs to get out of that area which would be very delayed so yes it could cause the symptoms. JAHAIRA Rosales 12/09/2022 1:32 PM Signed Called patient and [...] the AM and 4 mg PM - uftovtfrdqy-chvwbauqi-xbz anter (TRELEGY ELLIPTA) 100-62.5-25 mcg Inhale 1 Puff [...] Encounter Status:Closed by NELSY PEPE on 01/25/23 [facility] NURSING PROGon 12-08-2022 NURSING PROG HNO ID: [id number] Author: Lisa Contreras RN Service: Nursing Author Type: Registered Nurse Type: Nursing Progress Note Filed: 12/08/2022 11:28 AM Note Text: [facility] ENDOSCOPY POST PROCEDURE FOLLOW UP CALL [phone] (home) Date Phone Call Made: 12/08/2022 Attempt: [...] experience more pleasant? No Lisa Contreras RN [facility] ANES POSTPROC EVALon 023 ANES POSTPROC EVAL HNO ID: [id number] Author: Andres Sheets DO Service: Anesthesiology Author Type: Anesthesiologist Type: Anesthesia Postprocedure Evaluation Filed: 12/07/2022 12:44 PM Note Text: POST ANESTHESIA EVALUATION NOTE : 1970 Procedure Summary Date: 12/07/22 Room / Location: [facility] Anesthesia Start: 1034 Anesthesia Stop: 1055 Procedures: [...] December 07, 2022 TIME: 12:44 PM CSN: [id number] [facility] ANES PRE-OPon 12-07-2022 ANES PRE-OP HNO ID: [id number] Author: Andres Sheets DO Service: Anesthesiology Author Type: Anesthesiologist Type: Anesthesia Preprocedure Evaluation Filed: 12/07/2022 9:42 AM Note Text: ANESTHESIOLOGY DAY OF SURGERY NOTE : 1970 Procedure Information Date/Time: 12/07/22 1030 Scheduled providers: Winston Hannah DO Procedures: EGD - THERAPEUTIC, EUS, OR TUBE INTERVENTIONS PH MONTIEL INSERT OFF MEDS Location: [facility] Estimated body mass index is 24.55 kg/m? [...] and consent discussed: yes. Patient / Responsible Green Party agrees to proceed: yes Patient / Surrogate agrees to blood products: blood products not planned Significant changes in the patient condition since the History and Physical, not otherwise documented in primary service progress note: no. Potential Anesthesia issues that may suggest increased risk of complications or contraindication to planned procedure: none. Vitals Value Taken Time BP 109/74 12/07/22 0920 Pulse 91 12/07/22 0920 Resp 16 12/07/22919 Temp 36 ?C (96.8 ?F) 12/07/22 09 SpO2 98 % 12/07/22 0920 Outpatient Medications as of 12/07/2022 Medication Sig [...] the AM and 4 mg PM - pdewlolxtem-nuisjdyun-giu anter (TRELEGY ELLIPTA) 100-62.5-25 mcg Inhale 1 Puff [...] December 07, 2022 TIME: 9:40 AM CSN: [id number] [facility] HISTORY PHYSICALon HISTORY PHYSICAL HNO ID: [id number] Author: Soraida Mathis PA-C Service: Gastroenterology Author Type: Physician Tumbler Tender Type: HANDP Filed: 12/07/2022 9:48 AM Note [...] PAIN, N/V/D Medication reconciliation list reviewed in [facility]. Past medical history, past surgical history, social history and family history reviewed and updated in [facility]. ALLERGIES Allergies: Risperidone Intolerance Comment:Breast discharge SEE [facility] BP 109/74 Pulse 91 Temp [...] Leal DATE: 12/07/2022 TIME: 9:41 AM [facility] Upper GI endoscopyon 023 Upper GI endoscopy [facility] Gastrointestinal Endoscopy Patient Name: Mary Leal Procedure [...] by the physician, the nurse and the quarter folder in the pre-procedure area in the endoscopy [...] previously scheduled. Procedure Code(s): --- Professional --- 03659, Esophagogastroduodenoscop y, flexible, transoral; with dilation of gastric/duodenal stricture(s) (eg, balloon, bougie) Diagnosis Code(s): --- Professional --- K21.00, Gastro-esophageal reflux disease with esophagitis, without bleeding K31.84, Gastroparesis CPT copyright 2020 [employer]. All rights reserved. The codes documented in this report are preliminary and upon costume technician review may be revised to meet current compliance requirements. Attending Participation: I personally performed the entire procedure. Scope In: 10:39:12 AM Scope Out: 10:46:13 AM MD Winston Diaz MD 12/07/2022 10 (more content not included)... [facility] 36on 12-05-2022 36 I called patient jabier mcbride at [phone], she reported to me she stopped Vyvanse 30mg after 2 days due to insomnia. We reviewed her requip dosages, and I asked her to reduce her night dose to 2mg at bedtime and her morning dose to 1mg to prevent overactivation. Normal [facility] ANES POSTPROC EVALon 023 ANES POSTPROC EVAL HNO ID: [id number] Author: Annabel Burton MD Service: Anesthesiology Author Type: Physician Type: Anesthesia Postprocedure Evaluation Filed: 12/05/2022 2:01 PM Note Text: POST ANESTHESIA EVALUATION NOTE : 1970 Procedure Summary Date: 12/05/22 Room / Location: [facility] Anesthesia Start: 900 Anesthesia Stop: 917 Procedure: [...] December 05, 2022 TIME: 2:00 PM CSN: [id number] [facility] ANES PRE-OPon 12-05-2022 ANES PRE-OP HNO ID: [id number] Author: Annabel Burton MD Service: Anesthesiology Author Type: Physician Type: Anesthesia Preprocedure Evaluation Filed: 12/05/2022 8:28 AM Note Text: ANESTHESIOLOGY DAY OF SURGERY NOTE : 1970 Procedure Information Date/Time: 12/05/22 0900 Scheduled providers: Isra Masters DO Procedure: SIGMOIDOSCOPY Location: [facility] Estimated body mass index is 24.55 kg/m? [...] and consent discussed: yes. Patient / Responsible Green Party agrees to proceed: yes Patient / [...] the AM and 4 mg PM - ngsjbzsowfs-yszpiyequ-pex anter (TRELEGY ELLIPTA) 100-62.5-25 mcg Inhale 1 Puff [...] December 05, 2022 TIME: 8:26 AM CSN: [id number] [facility] Flexible Sigmoidoscopyon Flexible sigmoidoscopy [facility] Gastrointestinal Endoscopy Patient Name: Mary Leal Procedure Date: 12/05/2022 8:55 AM Date of : 1970 Admit Type: Outpatient Age: 52 Room: [place] [address] Gender: Female Note Status: Finalized Attending MD: [...] present medications. Procedure Code(s): --- Professional --- 49588, 52, Sigmoidoscopy, flexible; diagnostic, including collection of specimen(s) by brushing or washing, when performed (separate procedure) Diagnosis Code(s): --- Professional --- K59.00, Constipation, unspecified CPT copyright 2020 [employer]. All rights reserved. The codes documented in this report are preliminary and upon costume technician review may be revised to meet current compliance requirements. Attending Participation: I personally performed the entire procedure. Scope In: 9:07:04 AM Scope Out: 9:09:45 AM DO Isra Chen DO 12/05/2022 9:13:05 AM This report has been signed electronically by Isra Masters DO Number of Addenda: 0 Note Initiated On: 12/05/2022 8:55 AM Estimated Blood Loss: Estimated blood loss: none. [facility] HISTORY PHYSICALon HISTORY PHYSICAL HNO ID: [id number] Author: Lashanda Dorado PA-C Service: Gastroenterology Author Type: Physician Tumbler Tender Type: HANDP Filed: 12/05/2022 8:43 AM Note [...] PAIN, N/V/D Medication reconciliation list reviewed in [facility]. Past medical history, past surgical history, social history and family history reviewed and updated in [facility]. ALLERGIES Allergies: Risperidone Intolerance Comment:Breast discharge SEE [facility] There were no vitals taken [...] Leal DATE: 12/05/2022 TIME: 8:42 AM [facility] NURSING PROGon 12-05-2022 NURSING PROG HNO ID: [id number] Author: Lisa Contreras, MAKI Service: ? Author Type: Registered Nurse Type: Nursing Progress Note Filed: 12/05/2022 1:07 PM Note Text: [facility] ENDOSCOPY PRE PROCEDURE CALL Akiko. I'm calling from [facility] endoscopy to provide you with the information for your surgery/procedure tomorrow. 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 yes When anesthesia or sedation is being given: Patient instructed you must have an adult marine engine driver because you will not be able to work or drive for the rest of the day after your test.yes Can you please confirm the name and relationship of your marine engine driver. tbd What is the best number for your marine engine driver to be reached at tomorrow for updates? tbd Your marine engine driver is allowed to wait here with you [...] Do not wear makeup, lotion, or finger ukrainian. yes Patient instructed: Please bring a list [...] given Any barriers to Patient learning (confusion? 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 If patient needs to reschedule please call: [phone] [facility] phone number: [phone] Type of instruction given: Verbal by telephone contact. [facility] 36on 12-02-2022 36 Pt is still struggli ng with sleeping [facility] ----- MARY LEAL ([id number]) 1970 F Date Time Provider Department 12/02/22 YONI TUTTLE During your visit today, we recorded the following information about you: Barber Marie 12/02/2022 8:42 AM Signed SLEEP PHONE Name of caller: Mary Leal Relationship to patient : Self In-state or [id number] patient: In-State Was permission obtained from patient? Yes Patient identified by Name and Date of . ( Mary Leal, 1970). Yes Reason for Call : Patient said her and Patricia was chatting through my chart and Patricia called her about 5:15 yesterday. Number to return call [phone] Okay to leave a message ? Yes Last office visit 10/14/[address] Tuttle virtual Next office visit 01/13/[address] Tuttle virtual Patricia Benton, MAKI 12/14/2022 5:19 PM Signed Several attempts to reach [facility] sent. Allergies As of Date: [...] the AM and 4 mg PM - dagbarstiaw-hwzqmavgz-xnz anter (TRELEGY ELLIPTA) 100-62.5-25 mcg Inhale 1 Puff [...] Encounter Status:Closed by PATRICIA BENTON on 12/20/22 [facility] NURSING PROGon 12-02-2022 NURSING PROG HNO ID: [id number] Author: Isra Harman RN Service: ? Author Type: Registered Nurse Type: Nursing Progress Note Filed: 12/02/2022 10:54 AM Note Text: [facility] ENDOSCOPY PRE PROCEDURE CALL Akiko. I'm calling from [facility] endoscopy to provide you with the information for your surgery/procedure tomorrow. 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 yes When anesthesia or sedation is being given: Patient instructed you must have an adult marine engine driver because you will not be able to work or drive for the rest of the day after your test.yes Can you please confirm the name and relationship of your marine engine driver. Rich What is the best number for your marine engine driver to be reached at tomorrow for updates? 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 yes Patient instructed: Please bring a list [...] given Any barriers to Patient learning (confusion? 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 If patient needs to reschedule please call: [phone] [facility] phone number: [phone] Type of instruction given: Verbal by telephone contact. [facility] Telephoneon 12-02-2022 Telephone [id number] Darrian Leal 1970 Date Provider Department [place] 12/02/2022 ANNETTE BRYAN [facility] Gerardo Pool No family history on file Reason for Visit and Comments: Insomnia [351822] [facility] Behavioral Health Telemedici neon 11-30-2022 Behavioral Health Telemedicine [id number] Mary Leal 1970 Date Provider Department [place] 11/30/2022 CARMEN [facility] Gerardo Pool No family history on file Reason for Visit and Comments: Therapy [849] [facility] Hussain 11-24-2022 CNPOsman Telephone (NIQ) ----- MARY LEAL ([id number]) 1970 F Date Time Provider Department 11/24/22 YONI TUTTLE During your visit today, we recorded the following information about you: Barber Marie 11/24/2022 2:50 PM Signed SLEEP PHONE Name of caller: Mary Leal Relationship to patient : Self In-state or [id number] patient: In-State Was permission obtained from patient? Yes Patient identified by Name and Date of . ( Mary Leal, 1970). Yes Reason for Call : Patient stated she spoke to her insurance and they told her that the provider need to call Deuce to see if a PA is needed for the PAP Titration. Number to return call [phone] Okay to leave a message ? Yes Last office visit 10/14/[address] Tuttle virtual Next office visit None Uziel Serrano, RN 11/24/2022 3:20 PM Signed Contacted PreAccess [...] the AM and 4 mg PM - lnaqaeuqzae-tfelmjwvt-gqy anter (TRELEGY ELLIPTA) 100-62.5-25 mcg Inhale 1 Puff [...] Status:Closed by UZIEL SERRANO on 11/24/22 Normal [facility] Behavioral Health Telemedici neon 11-23-2022 Behavioral Health Telemedicine [id number] Mary Leal 1970 F Date Provider Department Center 11/23/2022 3941-CARMEN DORSEY [facility] Gerardo Heal No family history on file Reason for Visit and Comments: Therapy [849] Telehealth Audio/video Visit [211] - WebEx Normal [facility] Hussain 11-22-2022 CNPN Telephone (GASTSP) ----- MARY LEAL ([id number]) 1970 F Date Time Provider Department 11/22/22 ISRA MASTERS G[place] During your visit today, we recorded the following information about you: Lilli Castilloe 11/22/2022 3:38 PM Signed Patient calling to verify that Smart Pill monitor was received at A[facility]. Monitor was sent via Fed Ex on 11/19/22. Patient is requesting a confirmation. Allergies As of Date: 11/22/2022 Noted Allergy Reaction RISPERIDONE 07/27/2021 5 - Intolerance Comments: Breast discharge Date Reviewed: 11/21/2022 Reviewed by: Yodit Back PA-C - Fully Assessed Reason for Visit: Patient Update [8834] Prescriptions as of 11/29/2022 - Cholecalciferol, Vitamin [...] the AM and 4 mg PM - dfqnhfjuvgs-zepalfqao-kha anter (TRELEGY ELLIPTA) 100-62.5-25 mcg Inhale 1 Puff [...] Encounter Status:Closed by LILLI GOLDBERG on 11/29/22 [facility] HISTORY PHYSICALon HISTORY PHYSICAL HNO ID: [id number] Author: Yodit Back PA-C Service: ? Author Type: Physician Tumbler Tender Type: HANDP Filed: 11/21/2022 8:22 AM Note Text: PREANESTHESIA CONSULT CLINIC TELEHEALTH VISIT Patient has been identified by name and date of : Yes This is a virtual visit using [employer] video visit. It require patient-provider interaction for [...] in the AM and 4 mg PM bsnjcxoltps-gmejpnixs-cee anter (TRELEGY ELLIPTA) 100-62.5-25 mcg Inhale 1 Puff as instructed once daily. No current facility-administered medications for this visit. COVID VACCINATION STATUS: Fully vaccinated REVIEW OF SYSTEMS: Pain Assessment: General: No weight loss, malaise or fevers. Neuro: No history of TIA's, stroke, PLASTER FOREMAN tumor, impaired sensorium, hemiplegia, paraplegia or quadraplegia. [...] requiring medication, no history of angina, CHF, RI, cardiac surgery or stents. Denies rest pain, gangrene or revascularization/amputat ion for PVD. No history of cardiovascular symptoms or problems. + HLD GI: See HPI : No history of dysuria, frequency or incontinence,, stones or chronic kidney disease ALTERNATIVE ENERGY ENGINEER: Negative for abnormal vaginal bleeding, abnormal vaginal discharge. : Denies, No LMP recorded. Patient has had a hysterectomy. Endocrine: No history of diabetes. Has not taken steroids within the past 30 (more content not included)... Normal [facility] Behavioral Health Telemedici neon 11-18-2022 Behavioral Health Telemedicine [id number] Mary Leal 1970 F Date Provider Department Center 11/18/2022 ANNETTE BRYAN [facility] Gerardo Heal No family history on file Reason for Visit and Comments: Telehealth Audio/video Visit [871] - [email or web address] Normal [facility] CNOVon 11-17-2022 CNOV Office Visit (GENSSP ) ----- MARY LEAL ([id number]) 1970 F Date Time Provider Department 11/17/22 2:00 PM WINSTON HANNAH During your visit today, we recorded the following information about you: Pulse Blood pressure Weight Height 109/minute 119/81 4.5 kg 1.626 m Serenity Joseph MA 11/17/2022 1:25 PM Signed What is [...] 7:06 PM Signed [facility] [place] Gastroparesis/Dysmotility Consultation SERVICE DATE: 11/17/2022 SERVICE TIME: 2:16 PM PRIMARY CARE PHYSICIAN: DO Isra Mauricio [facility] [address] [facility] [address] My final recommendations will be communicated back [...] was obtained. NAME: Mary Leal CLINIC NO: [id number] DATE OF SERVICE: November 17, 2022 This [...] and some bloating. 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 Normal [facility] Behavioral Health Telemedici neon 11-16-2022 Behavioral Health Telemedicine [id number] Mary Leal 1970 F Date Provider Department Center 11/16/2022 Keith1-[facility] DOR[facility] Gerardo Heal No family history on file Reason for Visit and Comments: Therapy [849] Telehealth Audio/video Visit [871] - WebEx Normal [facility] Hussain 11-09-2022 MARIAN Telephone (ALEXANDRO) ----- MARY LEAL ([id number]) 1970 F Date Time Provider Department 11/09/22 YONI TUTTLE During your visit today, we recorded the following information about you: Mick Doll 11/09/2022 9:49 AM Signed SENT PATIENTS RX TO PREFERRED LOCATION [facility] [phone] 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 - carBAMazepine [...] LUNGS every 4 hours if needed - aketvkitbht-taokimnvd-ffa anter (TRELEGY ELLIPTA) 100-62.5-25 mcg Inhale 1 Puff [...] Encounter Status:Closed by MICK DOLL on 11/09/22 [facility] CNPN Telephone (GASTSP) ----- MARY LEAL ([id number]) 1970 F Date Time Provider Department 11/09/22 ISRA MATSERS GASTSP During your visit today, we recorded [...] Yes that would be fine thanks Lilli Goldberg 11/09/2022 1:21 PM Signed Scheduled 11/17 for [...] (FLONASE) 50 mcg/actuation nasal spray Use 1 [place] in each nostril once daily. - carBAMazepine [...] LUNGS every 4 hours if needed - bywhwohtwqz-cjsswflci-mty anter (TRELEGY ELLIPTA) 100-62.5-25 mcg Inhale 1 Puff [...] by KARTHIKEYAN MORRISSEY RN on 11/09/22 Normal [facility] FERRITINon 11-04-2022 FERRITIN (NG/ML) IN SER/PLAS 24.0 ng/mL Normal 11.0-307.0 [facility] Comment on above: Performed By: #### L AB68 ####[facility] (BEAKER)[address] [place] [address] Labon 11-04-2022 Lab [id number] Darrian Leal 1970 F Date Provider Department [place] 11/04/2022 2242-[facility] RESOURCE [facility] Comprehensiv No family history on file Normal [facility] Refillon 11-03-2022 Refill [id number] Darrian Leal 1970 Date Provider Department [place] 11/03/2022 PONCE MCKEON [facility] Gerardo Heal No family history on file Reason for Visit and Comments: Med Refill [[id number]] Normal [facility] CNPNon 11-02-2022 CNPOsman Telephone (NIQ) ----- MARY LEAL ([id number]) 1970 F Date Time Provider Department 11/02/22 YONI TUTTLE During your visit today, we recorded the following information about you: Barber PatelBryMartinez 11/02/2022 12:35 PM Signed Received from [facility] Sleep Laboratory Report via fax. 8 pages indexed to chart. Yoni Tuttle MD 11/17/2022 3:10 PM Signed Ty - I'll order PAP titration and MCM pt re her OSH PSG results. Yoni Tuttle MD 11/17/2022 3:16 PM Signed 09/22/22: PSG from OSH [facility]: Total (RDI) AHI by 3% desat 27.1, [...] [G47.33] Order(s):PAP TITRATION PSG (CPAP, BIPAP, ASV) [[id number]] Order #: [id number] FUTURE Prescriptions as of 12/01/2022 - Cholecalciferol, [...] the AM and 4 mg PM - slflttcirkz-yxwkmuexg-qiv anter (TRELEGY ELLIPTA) 100-62.5-25 mcg Inhale 1 Puff [...] Encounter Status:Closed by PATRICIA BENTON on 11/17/22 [facility] Hussain 10-27-2022 KWESIN Telephone ([facility]) ----- MARY LEAL ([id number]) 1970 F Date Time Provider Department 10/27/22 ISRA MASTERS [facility] During your visit today, we recorded [...] DO - Fully Assessed 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 - carBAMazepine [...] LUNGS every 4 hours if needed - efbavpjkgju-jfycrcofq-hle anter (TRELEGY ELLIPTA) 100-62.5-25 mcg Inhale 1 Puff [...] Encounter Status:Closed by NELSY PEPE on 11/09/22 [facility] Hussain 10-24-2022 KWESIN Telephone ([facility]) ----- MARY LEAL ([id number]) 1970 F Date Time Provider Department 10/24/22 ISRA MASTERS During your visit today, we [...] calling: self Call patient at: at home [phone] (home) [phone] (cell) Closing statement: Symptom Call: Thank you for calling [facility], your call is very important. A nurse will call in approximately 2-4 hours during business hours. If this is an emergency, please contact 911. Nati Hernandez Ban Benton LPN 10/24/2022 1:12 PM Signed Please [...] Fully Assessed Reason for Visit: Patient Question [1337] Prescriptions as of 10/24/2022 - Dexlansoprazole 60 [...] (FLONASE) 50 mcg/actuation nasal spray Use 1 [place] in each nostril once daily. - carBAMazepine [...] LUNGS every 4 hours if needed - zthowjnfecu-zoyhzshyg-ndr anter (TRELEGY ELLIPTA) 100-62.5-25 mcg Inhale 1 Puff [...] Status:Closed by BAN BENTON on 10/24/22 [facility] 10-20-2022 Amylase [Catalytic activity/Vol] 33 U/L Normal 25-115 [facility] Comment on above: Performed By: #### L ACT #### [facility] [address] [place] [address] Dr. Mirian Vealsco CBC AUTO DIFFon 10-20-2022 BASO # 0.0 103/ul Normal 0.0-0.1 [facility] Comment on above: Performed By: #### P T #### [facility] [address] [place] [address] Dr. Mirian Velasco Basophils/100 WBC (Bld) 0.2 % Normal 0.2-2.0 [facility] Comment on above: Performed By: #### P T #### [facility] [address] [place] [address] Dr. Mirian Velasco EO # 0.1 103/ul Normal 0.0-0.7 [facility] Comment on above: Performed By: #### P T #### [facility] [address] [place] [address] Dr. Mirian Velasco Eosinophils/100 WBC (Bld) 0.6 % Critically low 0.9-7.0 [facility] Comment on above: Performed By: #### P T #### [facility] [address] [place] [address] Dr. Mirian Velasco Erythrocyte distribution width (RBC) [Ratio] 13.6 % Normal 11.0-15.0 [facility] Comment on above: Performed By: #### P T #### [facility] [address] [place] [address] Dr. Mirian Velasco Hematocrit (Bld) [Volume fraction] 41.0 % Normal 36.0-48.0 [facility] Comment on above: Performed By: #### P T #### [facility] [address] [place] [address] Dr. Mirian Velasco Hemoglobin (Bld) [Mass/Vol] 13.5 g/dL Normal 12.0-16.0 [facility] Comment on above: Performed By: #### P T #### [facility] [address] [place] [address] Dr. Mirian Velasco IG # 0.06 10e3/ul Critically high 0.00-0.03 [facility] Comment on above: Performed By: #### P T #### [facility] [address] [place] [address] Dr. Mirian Velasco IG % 0.4 % Normal 0.0-0.5 [facility] Comment on above: Performed By: #### P T #### [facility] [address] [place] [address] Dr. Mirian Velasco LYMPH # 2.5 103/ul Normal 1.2-3.8 [facility] Comment on above: Performed By: #### P T #### [facility] [address] [place] [address] Dr. Mirian Velasco Lymphocytes/100 WBC (Bld) 17.5 % Critically low 20.5-60.0 [facility] Comment on above: Performed By: #### P T #### [facility] [address] [place] [address] Dr. Mirian Velasco MANUAL DIFF REQ NO Normal [facility] Comment on above: Performed By: #### P T #### [facility] [address] [place] [address] Dr. Mirian Velasco MCH (RBC) [Entitic mass] 28.1 pg Normal 26.7-34.0 [facility] Comment on above: Performed By: #### P T #### [facility] [address] [place] [address] Dr. Mirian Velasco MCHC (RBC) [Mass/Vol] 32.9 g/dL Normal 29.9-35.2 [facility] Comment on above: Performed By: #### P T #### [facility] [address] [place] [address] Dr. Mirian Velasco MCV (RBC) [Entitic vol] 85.2 fL Normal 81.0-99.0 [facility] Comment on above: Performed By: #### P T #### [facility] [address] [place] [address] Dr. Mirian Velasco MONO # 0.7 103/ul Normal 0.3-0.8 [facility] Comment on above: Performed By: #### P T #### [facility] [address] [place] [address] Dr. Mirian Velasco Monocytes/100 WBC (Bld) 4.5 % Normal 1.7-12.0 [facility] Comment on above: Performed By: #### P T #### [facility] [address] [place] [address] Dr. Mirian Velasco NEUT # 11.0 103/ul Critically high 1.4-6.5 [facility] Comment on above: Performed By: #### P T #### [facility] [address] [place] [address] Dr. Mirian Velasco Neutrophils/100 WBC (Bld) 76.8 % Critically high 43.0-75.0 [facility] Comment on above: Performed By: #### P T #### [facility] [address] [place] [address] Dr. Mirian Velasco Platelet mean volume (Bld) [Entitic vol] 8.7 fL Critically low 9.5-13.5 [facility] Comment on above: Performed By: #### P T #### [facility] [address] [place] [address] Dr. Mirian Velasco PLT 390 103/ul Normal 150-450 [facility] Comment on above: Performed By: #### P T #### [facility] [address] [place] [address] Dr. Mirian Velasco RBC 4.81 106/ul Normal 4.20-5.40 [facility] Comment on above: Performed By: #### P T #### [facility] [address] [place] [address] Dr. Mirian Velasco WBC 14.3 103/ul Critically high 4.0-11.0 [facility] Comment on above: Performed By: #### P T #### [facility] [address] [place], [place] [address] ABD/PELV W CONon 10-20-[address] ABD/PELV W CON EXAMINATION: CT ABD/ [...] Date: 2022-10-20 12:35 Normal [facility] CULTURE BLOODon 10-20-2022 Microscopic examination of blood, culture Culture Observations: NO GROWTH AT 5 DAYS. Normal [facility] Comment on above: Performed By: #### B [id number] ####[facility] [id number] [place] [id number]. Mirian Velasco Microscopic examination of blood, culture Culture Observations: NO GROWTH AT 5 DAYS. Normal [facility] Comment on above: Performed By: #### B LDCX1 #### [facility] [address] [place] [address] Dr. 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 NO POTENTIAL PATHOGENS SEEN. Normal [facility] Comment on above: Performed By: #### U RCX #### [facility] [address] [place] [address] Dr. Mirian Velasco ER URINE PROFILEon Bilirubin Ql (U) Negative Normal NEGATIVE [facility] Comment on above: Performed By: #### P T #### [facility] [address] [place] [address] Dr. Mirian Velasco Clarity (U) CLEAR Normal CLEAR [facility] Comment on above: Performed By: #### P T #### [facility] [address] [place] [address] Dr. Mirian Velasco Color (U) LT. YELLOW Normal YELLOW [facility] Comment on above: Performed By: #### P T #### [facility] [address] [place] [address] Dr. Mirian Velasco ERUJOSED A micrscopic examina tion will be performed if indicated. Normal [facility] Comment on above: Performed By: #### P T #### [facility] [address] [place] [address] Dr. Mirian Velasco Glucose Ql (U) Negative Normal NEGATIVE [facility] Comment on above: Performed By: #### P T #### [facility] [address] [place] [address] Dr. Mirian Velasco Hemoglobin Ql (U) Negative Normal NEGATIVE [facility] Comment on above: Performed By: #### P T #### [facility] [address] [place] [address] Dr. Mirian Velasco Ketones Ql (U) Negative Normal NEGATIVE [facility] Comment on above: Performed By: #### P T #### [facility] [address] [place] [address] Dr. Mirian Velasco LEUKOCYTES SMALL Abnormal NEGATIVE [facility] Comment on above: Performed By: #### P T #### [facility] [address] [place] [address] Dr. Mirian Velasco Nitrite Ql (U) Negative Normal NEGATIVE [facility] Comment on above: Performed By: #### P T #### [facility] [address] [place] [address] Dr. Mirian Velasco pH (U) 7.0 [pH] Normal 5-9 [facility] Comment on above: Performed By: #### P T #### [facility] [address] [place] [address] Dr. Mirian Velasco SPEC GRAVITY 1.015 Normal 1.005-<=1. 025 [facility] Comment on above: Performed By: #### P T #### [facility] [address] [place] [address] Dr. Mirian Velasco UA PROTEIN Negative Normal NEGATIVE/ TRACE [facility] Comment on above: Performed By: #### P T #### [facility] [address] [place] [address] Dr. Mirian Velasco UR MICRO IND INDICATED Normal [facility] Comment on above: Performed By: #### P T #### [facility] [address] [place] [address] Dr. Mirian Velasco Urobilinogen Qn (U) 0.2 {Lyubov'U}/dL Normal 0.2 - 1. 0 [facility] Comment on above: Performed By: #### P T #### [facility] [address] [place] [address] Dr. Mirian Velasco LACTATE/LACTIC ACIDon 2021 Lactate [Moles/Vol] 1.3 mmol/L Normal 0.4-1.9 [facility] Comment on above: Performed By: #### L ACT #### [facility] [address] [place] [address] Dr. Mirian Velasco LIPASEon 10-20-2022 Lipase [Catalytic activity/Vol] 49.0 U/L Critically low 73.0-393.0 [facility] Comment on above: Performed By: #### P T #### [facility] [address] [place] [address] [address] Mirian Velasco PROF 14(COMP METB)on 022 Albumin [Mass/Vol] 3.2 g/dL Critically low 3.4-5.0 [facility] Comment on above: Performed By: #### P T #### [facility] [address] [place] [address] Dr. Mirian Velasco Albumin/Globulin [Mass ratio] 0.9 {ratio} Normal [facility] Comment on above: Performed By: #### P T #### [facility] [address] [place] [address] Dr. Mirian Velasco ALP [Catalytic activity/Vol] 129 U/L Critically high 46-116 [facility] Comment on above: Performed By: #### P T #### [facility] [address] [place] [address] Dr. Mirian Velasco ALT [Catalytic activity/Vol] 25 U/L Normal 14-59 [facility] Comment on above: Performed By: #### P T #### [facility] [address] [place] [address] Dr. Mirian Velasco Anion gap [Moles/Vol] 10.7 mmol/L Normal [facility] Comment on above: Performed By: #### P T #### [facility] [address] [place] [address] Dr. Mirian Velasco AST [Catalytic activity/Vol] 20 U/L Normal 15-37 [facility] Comment on above: Performed By: #### P T #### [facility] [address] [place] [address] Dr. Mirian Velasco Bilirubin [Mass/Vol] 0.5 mg/dL Normal 0.2-1.0 [facility] Comment on above: Performed By: #### P T #### [facility] [address] [place] [address] Dr. Mirian Velasco Calcium [Mass/Vol] 9.2 mg/dL Normal 8.5-10.1 [facility] Comment on above: Performed By: #### P T #### [facility] [address] [address] [address] Mirian Velasco Chloride [Moles/Vol] 102 mmol/L Normal 98-107 [facility] Comment on above: Performed By: #### P T #### [facility] [address] [address] [address] Mirian Velasco CO2 [Moles/Vol] 30.0 mmol/L Normal 21.0-32.0 [facility] Comment on above: Performed By: #### P T #### [facility] [address] [address] [address] Mirian Velasco Creatinine [Mass/Vol] 0.68 mg/dL Normal 0.55-1.02 [facility] Comment on above: Performed By: #### P T #### [facility] [address] [place] [address] Dr. Mirian Velasco EGFR-AF MAURITIAN >60 Normal >=60 [facility] Comment on above: Performed By: #### P T #### [facility] [address] [address] [address] Mirian Velasco EGFR-NON AF MAURITIAN >60 Normal >=60 [facility] Comment on above: Performed By: #### P T #### [facility] [address] [place] [address] Dr. Mirian Velasco Globulin (S) [Mass/Vol] 3.7 g/dL Normal [facility] Comment on above: Performed By: #### P T #### [facility] [address] [place] [address] Dr. Mirian Velasco Glucose [Mass/Vol] 109 mg/dL Critically high 74-106 [facility] Comment on above: Performed By: #### P T #### [facility] [address] [address] [address] Mirian Velasco Potassium [Moles/Vol] 3.7 mmol/L Normal 3.5-5.1 [facility] Comment on above: Performed By: #### P T #### [facility] [address] [place] [address] Dr. Mirian Velasco Protein [Mass/Vol] 6.9 g/dL Normal 6.4-8.2 [facility] Comment on above: Performed By: #### P T #### [facility] [address] [place] [address] Dr. Mirian Velasco Sodium [Moles/Vol] 139 mmol/L Normal 136-145 [facility] Comment on above: Performed By: #### P T #### [facility] [address] [place] [address] Dr. Mirian Velasco Urea nitrogen [Mass/Vol] 13.0 mg/dL Normal 7.0-18.0 [facility] Comment on above: Performed By: #### P T #### [facility] [address] [place] [address] Dr. Mirian Velasco Urea nitrogen/Creatinine [Mass ratio] 19.1 mg/mg Normal [facility] Comment on above: Performed By: #### P T #### [facility] [address] [place] [address] Dr. Mirian Velasco URINE MICROSCOPIC ONLYon BACTERIA TRACE Abnormal NONE SEEN [facility] Comment on above: Performed By: #### P T #### [facility] [address] [place] [address] Dr. Mirian Velasco Bacteria identified Cx Nom (U) INDICATED Normal [facility] Comment on above: Performed By: #### P T #### [facility] [address] [place] [address] Dr. Mirian Velasco CAST NONE SEEN Normal NONE SEEN [facility] Comment on above: Performed By: #### P T #### [facility] [address] [place] [address] Dr. Mirian Velasco Crystals LM Nom (Urine sed) NONE SEEN Normal NONE SEEN [facility] Comment on above: Performed By: #### P T #### [facility] [address] [place] [address] Dr. Mirian Velasco Epithelial cells LM Ql (Urine sed) MODERATE Abnormal NONE SEEN /RARE [facility] Comment on above: Performed By: #### P T #### [facility] [address] [address] [address] Mirian Velasco MUCOUS NONE SEEN Normal NONE SEEN [facility] Comment on above: Performed By: #### P T #### [facility] [address] [place] [address] Dr. Mirian Velasco RBC NONE SEEN Abnormal 0-2 [facility] Comment on above: Performed By: #### P T #### [facility] [address] [address] [address] Mirian Velasco WBC 2-5 Abnormal NONE SEEN [facility] Comment on above: Performed By: #### P T #### [facility] [address] [place] [address] Dr. Mirian Velasco YEAST PRESENT Abnormal NONE SEEN [facility] Comment on above: Result Comment: RARE BUDDING YEAST Performed By: #### P T #### [facility] [address] [place] [address] Dr. Mirian Nixon 10-17-2022 [facility] Telephone ([facility]) ----- MARY LEAL ([id number]) 1970 F Date Time Provider Department 10/17/22 YONI TUTTLE [facility] During your visit today, we recorded the following information about you: Mick Lavon 10/17/2022 9:19 AM Signed Faxed order, office notes, demographics, and sleep study to: DME name: [facility] DME fax: [phone] DME ph: ALSO SENT A REQUEST FOR PTS PSG FROM [facility] IN [place] Allergies As of Date: 10/17/2022 Noted Allergy Reaction RISPERIDONE 07/27/2021 5 - Intolerance Comments: Breast discharge Date Reviewed: 10/11/2022 Reviewed by: Isra Masters DO - Fully Assessed Reason for Visit: PAP Rx Faxed [[phone]] Cmt: DME: [facility] Prescriptions as of 10/17/2022 - ramelteon (ROZEREM) [...] (FLONASE) 50 mcg/actuation nasal spray Use 1 [place] in each nostril once daily. - carBAMazepine [...] LUNGS every 4 hours if needed - hhdocurjbkl-jpokfqypd-bda anter (TRELEGY ELLIPTA) 100-62.5-25 mcg Inhale 1 Puff [...] Status:Closed by MICK DOLL on 10/17/22 Normal [facility] POINT OF CARE GLUCOSEon 10-06 Glucose [Mass/Vol] 131 mg/dL Critically high 74-106 [facility] Comment on above: Performed By: #### P OCGLUC ####[facility] [id number] [id number] Mirian Velasco Glucose [Mass/Vol] 113 mg/dL Critically high 74-106 [facility] Comment on above: Performed By: #### P OCGLUC ####[facility] [id number] [id number] Mirian Velasco XR FOOT RT 2Von 10-17-2022 XR FOOT RT 2V EXAM: XR FOOT RT 2V HISTORY: Pain COMPARISON: 07/27/2022 TECHNIQUE: 2 minutes and 44 seconds of fluoroscopy. 33 images. FINDINGS: Interval posterior calcaneal osteotomy transfixed with 2 screws. Anterior calcaneal osteotomy with wedged spacer. Medial cuneiform osteotomy with wedged spacer. IMPRESSION: Interval triple arthrodesis Electronically authenticated by: NICKI DACOSTA Date: 2022-10-17 18:04 Normal [facility]on SARS-CoV-2 (COVID-19) RNA JOSÉ MIGUEL+probe Ql (Unsp spec) Not detected Normal NOT DETECTED [facility] Comment on above: Result Comment: This test is not yet approved or cleared by the [place] FDA. When there are no FDA-approved or cleared tests available, and other criteria are met, FDA can make tests available under an emergency access mechanism called an Emergency Use Authorization (EUA). The EUA for this test is supported by the [place] of Health and Human Service's (HHS's) declaration [...] consistent with SARS-CoV-2. Performed By: #### [facility] #### [facility] [address] [place] [address] Dr. Mirian Velasco Diagnostic Mammogram, Unilat eral [...] VERY IMPORTANT TO YOUR HEALTH. THE CURRENT [place] [employer]LE[employer] OF [employer]IOLOG[employer] AND NATIONAL COMPREHENSIVE CANCER NETWORK GUIDELINES RECOMMENDS ANNUAL MAMMOGRAPHY BEGINNING AT AGE 40 THIS FACILITY USES A REMINDER SYSTEM TO ENSURE ALL PATIENTS RECEIVE REMINDER NOTIFICATIONS AT THE APPROPRIATE TIME BASED ON THE RECOMMENDATIONS OF THIS EXAM. Board Certified Radiologist. Accredited by the ACR and FDA. Report reported and signed by Dawna Lizarraga on 09/28/2022 1307 Normal [facility] Behavioral Assistant CBC AUTO DIFFon 09-26-2022 BASO # 0.1 103/ul Normal 0.0-0.1 [facility] Comment on above: Performed By: #### L ACT #### [facility] [address] [place] [address] Dr. Mirian Velasco Basophils/100 WBC (Bld) 0.8 % Normal 0.2-2.0 [facility] Comment on above: Performed By: #### L ACT #### [facility] [address] [address] [address] Mirian Velasco EO # 0.1 103/ul Normal 0.0-0.7 [facility] Comment on above: Performed By: #### L ACT #### [facility] [address] [place] [address] Dr. Mirian Velasco Eosinophils/100 WBC (Bld) 1.5 % Normal 0.9-7.0 [facility] Comment on above: Performed By: #### L ACT #### [facility] [address] [place] [address] Dr. Mirian Velasco Erythrocyte distribution width (RBC) [Ratio] 13.4 % Normal 11.0-15.0 [facility] Comment on above: Performed By: #### L ACT #### [facility] [address] [place] [address] Dr. Mirian Velasco Hematocrit (Bld) [Volume fraction] 41.3 % Normal 36.0-48.0 [facility] Comment on above: Performed By: #### L ACT #### [facility] [address] [place] [address] Dr. Mirian Velasco Hemoglobin (Bld) [Mass/Vol] 13.4 g/dL Normal 12.0-16.0 [facility] Comment on above: Performed By: #### L ACT #### [facility] [address] [place] [address] Dr. Mirian Velasco IG # 0.04 10e3/ul Critically high 0.00-0.03 [facility] Comment on above: Performed By: #### L ACT #### [facility] [address] [place] [address] Dr. Mirian Velasco IG % 0.5 % Normal 0.0-0.5 [facility] Comment on above: Performed By: #### L ACT #### [facility] [address] [place] [address] Dr. Mirian Velasco LYMPH # 2.5 103/ul Normal 1.2-3.8 [facility] Comment on above: Performed By: #### L ACT #### [facility] [address] [place] [address] Dr. Mirian Velasco Lymphocytes/100 WBC (Bld) 27.7 % Normal 20.5-60.0 [facility] Comment on above: Performed By: #### L ACT #### [facility] [address] [place] [address] Dr. Mirian Velasco MANUAL DIFF REQ NO Normal [facility] Comment on above: Performed By: #### L ACT #### [facility] [address] [place] [address] Dr. Mirian Velasco MCH (RBC) [Entitic mass] 27.6 pg Normal 26.7-34.0 [facility] Comment on above: Performed By: #### L ACT #### [facility] [address] [place] [address] Dr. Mirian Velasco MCHC (RBC) [Mass/Vol] 32.4 g/dL Normal 29.9-35.2 [facility] Comment on above: Performed By: #### L ACT #### [facility] [address] [place] [address] Dr. Mirian Velasco MCV (RBC) [Entitic vol] 85.0 fL Normal 81.0-99.0 [facility] Comment on above: Performed By: #### L ACT #### [facility] [address] [place] [address] Dr. Mirian Velasco MONO # 0.6 103/ul Normal 0.3-0.8 [facility] Comment on above: Performed By: #### L ACT #### [facility] [address] [place] [address] Dr. Mirian Velasco Monocytes/100 WBC (Bld) 6.9 % Normal 1.7-12.0 [facility] Comment on above: Performed By: #### L ACT #### [facility] [address] [address] [address] Mirian Velasco NEUT # 5.6 103/ul Normal 1.4-6.5 [facility] Comment on above: Performed By: #### L ACT #### [facility] [address] [address] [address] Mirian Velasco Neutrophils/100 WBC (Bld) 62.6 % Normal 43.0-75.0 [facility] Comment on above: Performed By: #### L ACT #### [facility] [address] [place] [address] Dr. Mirian Velasco Platelet mean volume (Bld) [Entitic vol] 8.6 fL Critically low 9.5-13.5 [facility] Comment on above: Performed By: #### L ACT #### [facility] [address] [place] [address] Dr. Mirian Velasco PLT 372 103/ul Normal 150-450 [facility] Comment on above: Performed By: #### L ACT #### [facility] [address] [place] [address] Dr. Mirian Velasco RBC 4.86 106/ul Normal 4.20-5.40 [facility] Comment on above: Performed By: #### L ACT #### [facility] [address] [place] [address] Dr. Mirian Velasco WBC 8.9 103/ul Normal 4.0-11.0 [facility] Comment on above: Performed By: #### L ACT #### [facility] [address] [place] [address] Dr. Mirian Velasco PROF CHEM 8 (BAS METB)on Anion gap [Moles/Vol] 8.0 mmol/L Normal [facility] Comment on above: Performed By: #### P T #### [facility] [address] [place] [address] Dr. Mirian Velasco Calcium [Mass/Vol] 9.0 mg/dL Normal 8.5-10.1 [facility] Comment on above: Performed By: #### P T #### [facility] [address] [address] [address] Mirian Velasco Chloride [Moles/Vol] 106 mmol/L Normal 98-107 [facility] Comment on above: Performed By: #### P T #### [facility] [address] [address] [address] Mirian Velasco CO2 [Moles/Vol] 30.3 mmol/L Normal 21.0-32.0 [facility] Comment on above: Performed By: #### P T #### [facility] [address] [address] [address] Mirian Velasco Creatinine [Mass/Vol] 0.71 mg/dL Normal 0.55-1.02 [facility] Comment on above: Performed By: #### P T #### [facility] [address] [place] [address] Dr. Mirian Velasco EGFR-AF MAURITIAN >60 Normal >=60 [facility] Comment on above: Performed By: #### P T #### [facility] [address] [place] [address] Dr. Mirian Velasco EGFR-NON AF MAURITIAN >60 Normal >=60 [facility] Comment on above: Performed By: #### P T #### [facility] [address] [place] [address] Dr. Mirian Velasco Glucose [Mass/Vol] 81 mg/dL Normal 74-106 [facility] Comment on above: Performed By: #### P T #### [facility] [address] [place] [address] Dr. Mirian Velasco Potassium [Moles/Vol] 4.3 mmol/L Normal 3.5-5.1 [facility] Comment on above: Performed By: #### P T #### [facility] [address] [place] [address] Dr. Mirian Velasco Sodium [Moles/Vol] 140 mmol/L Normal 136-145 [facility] Comment on above: Performed By: #### P T #### [facility] [address] [address] [address] Mirian Velasco Urea nitrogen [Mass/Vol] 16.0 mg/dL Normal 7.0-18.0 [facility] Comment on above: Performed By: #### P T #### [facility] [address] [address] [address] Mirian Velasco Urea nitrogen/Creatinine [Mass ratio] 22.5 mg/mg Normal [facility] Comment on above: Performed By: #### P T #### [facility] [address] [address] [address] Mirian Velasco CHUYITA Antinuclear Antibodieson 09-22-2022 Antinuclear Abs, IFA Negative Normal . [facility] Comment on above: Order Comment: Reaso n for Exam Generalized pain Result Comment: Nega tive <1:80 Borderline 1:80 Positive >1:80 ICAP nomenclature: AC-0 For more information about Hep-2 cell patterns use ANApatterns.org, the official website for the International Consensus on Antinuclear Antibody (CHUYITA) Patterns (ICAP). Performed at: - [facility] [address] [id number] Dairy Specialist: Erick Neville PhD, Phone: [phone] PERFORMED BY: [place] [address] PATHOLOGIST SUPERVISOR RIVETING LEVAR CASE M.D. Performed By: #### T 4T, ESR, URIC, CRP, TSH3 #### [place] [address] [place] #### RA, CHUYITA #### [facility] , C reactive protein [Mass/vol ume] in Serum or PlasmaOrdered By: Annette Harris on 09-22-2022 CRP [Mass/Vol] 0.6 mg/dL 0.0-1.0 [facility] C-Reactive Proteinon 022 C-Reactive Protein 0.6 mg/dL Normal 0.0-1.0 mg/dL [employer] Other C-Reactive Protein 0.6 mg/dL Normal 0.0-1.0 [facility] Comment on above: Order Comment: Reaso n for Exam Generalized pain Performed By: #### T 4T, ESR, URIC, CRP, TSH3 #### [facility] [address] [place] [address] [place] #### RA, CHUYITA #### [facility] , Erythrocyte Sedimentation Ra lian 09-22-2022 ESR (Bld) [Velocity] 4 mm/h Normal 0-29 [facility] [employer] Other Comment on above: Order Comment: Reaso n for Exam Generalized pain Result Comment: PERF ORMED BY: [place] [address] PATHOLOGIST SUPERVISOR RIVETING LEVAR CASE M.D. Performed By: #### T 4T, ESR, URIC, CRP, TSH3 #### [facility] [address] [place] [address] #### RA, CHUYITA #### [facility] , Erythrocyte sedimentation ra te by Photometric methodOrdered By: Annette Harris on 09-22-2022 ESR Photometric method (Bld) [Velocity] 4 mm/hr 0-29 [facility] Rheumatoid Factoron 09-22-20 22 Rheumatoid Factor <10.0 Normal <14.0 [facility] Comment on above: Order Comment: Reaso n for Exam Generalized pain Result Comment: Perf ormed at: - [facility] [address] [id number] Dairy Specialist: Erick Neville PhD, Phone: [phone] Performed By: #### T 4T, ESR, URIC, CRP, TSH3 #### [facility] [address] [place] [address] [place] #### RA, CHUYITA #### [facility] , Serum nuclear antibody titer Ordered By: Annette Harris on 09-22-2022 Nuclear Ab (S) [Titer] Negative . [facility] Comment on above: Negative <1:80 Borde rline 1:80 Positive >1:80ICAP nomenclature: AC-0For more information about Hep-2 cell patterns useANApatterns.org, the official website for theInternational Consensus on Antinuclear Antibody (CHUYITA)Patterns (ICAP).Performed at: CB - [facility] [address] [id number] Director: Erick Neville PhD, Phone: [phone] Serum or plasma rheumatoid f actor measurement (units/volume)Ordered By: Annette Harris on 09-22-2022 Rheumatoid factor Qn [IU]/mL <14.0 [facility] Comment on above: Performed at: CB - [facility] [address] [id number] Director: Erick Neville PhD, Phone: [phone] Serum or plasma thyroxine (T 4) measurement (mass/volume)Ordered By: Annette Harris on 09-22-2022 T4 [Mass/Vol] 9.82 ug/dL 5.39-11.82 [facility] Serum or plasma uric acid me asurement (mass/volume)Ordered By: Annette Harris on 09-22-2022 Urate [Mass/Vol] 4.2 mg/dL 2.6-7.2 [facility] TSH DL <= 0.005 mIU/L QnOrde red By: Annette Harris on 09-22-2022 TSH Qn 1.98 m[IU]/L 0.45-5.33 [facility] Thyroid Stimulating Hormoneo n 09-22-2022 TSH Qn 1.78372593579 m[IU]/L Normal 0.45-5 .33 u[iU]/mL [employer] Other TSH Qn 1.98 m[IU]/L Normal 0.45-5.33 [facility] Comment on above: Order Comment: Reaso n for Exam Generalized pain Result Comment: PERF ORMED BY: [place] [address] PATHOLOGIST SUPERVISOR RIVETING LEVAR CASE M.D. Performed By: #### T 4T, ESR, URIC, CRP, TSH3 #### [address] #### RA, CHUYITA #### [facility] , Thyroxine (T4) Totalon 09-22 Thyroxine (T4) Total 9.82 ug/dL Normal 5.39-11 .82 ug/dL [facility] [employer] Other T4 [Mass/Vol] 9.82 ug/dL Normal 5.39-11.82 [facility] Comment on above: Order Comment: Reaso n for Exam Generalized pain Performed By: #### T 4T, ESR, URIC, CRP, TSH3 #### [facility] [address] [place] [address] [place] #### RA, CHUYITA #### [facility] , Uric Acidon 09-22-2022 Urate [Mass/Vol] 4.6948856 mg/dL Normal 2.6-7.2 mg/dL [facility] [employer] Other Urate [Mass/Vol] 4.2 mg/dL Normal 2.6-7.2 [facility] Comment on above: Order Comment: Reaso n for Exam Generalized pain Performed By: #### T 4T, ESR, URIC, CRP, TSH3 #### [facility] [address] [place] [address] [place] #### RA, CHUYITA #### [facility] , XR knee BI 2Von 09-22-2022 XR knee BI 2V [facility] Main [place] [address] [place] [address] XRay Report Signed Patient: Mary Leal MR#: [id number] : 1970 Acct:[id number] Age/Sex: 52 / F ADM Date: 09/22/22 Loc: [facility] Room: Type: [facility] Attending Dr: Annette Harris MD Copies to: [...] Joshua Garcia M.D.09/22/2022 2:17 PM Dictation Location: [place] [address] Transcribed By: [facility] 09/22/221416 Dictated By: Joshua Garcia II, MD 09/22/221414 Signed By: 09/22/221416 [facility] XR knee BI 2V [facility] [employer] Other XR knee BI 2V [facility] Main [facility] [employer] Other XR knee BI 2V [address] [place] [address] [employer] Other XR knee BI 2V [address] [employer] Other XR knee BI 2V XRay Report [facility] [employer] Other XR knee BI 2V Signed [employer] Other XR knee BI 2V Patient: Darrian Leal MR#: [id number] [place] [employer] Other XR knee BI 2V 863 [employer] Other XR knee BI 2V : 1970 Acct:[id number] [employer] Other XR knee BI 2V Age/Sex: 52 / F ADM Date: 09/22/22 [employer] Other XR knee BI 2V Loc: [facility] Room: Type : [facility] [employer] Other XR knee BI 2V Attending Dr: Annette Harris MD [employer] Other XR knee BI 2V Copies to: Annette Harris MD [employer] Other XR knee BI 2V Ordering Provider: Carey Harris MD [employer] Other XR knee BI 2V Date of Service: 09/22/22 [employer] Other XR knee BI 2V XR/XR knee BI 2V: Knee pain [employer] Other XR knee BI 2V XR knee BI 2V 2021 9:23 AM [employer] Other XR knee BI 2V SIGNS AND SYMPTOMS: Bilateral knee pain right greater than left [employer] Other XR knee BI 2V PROTOCOL: Frontal an d lateral radiographs of the bilateral knees [employer] Other XR knee BI 2V COMPARISON: None [employer] Other XR knee BI 2V FINDINGS: [employer] Campaign Other XR knee BI 2V There is evidence of prior ACL repair in the left knee with mild narrowing of the weightbearing [employer] Other XR knee BI 2V joint spaces on the left. The joint spaces are otherwise preserved. There is no fracture or [employer] Other XR knee BI 2V dislocation. No join t effusion or soft tissue swelling. [employer] Other XR knee BI 2V X R/XR knee BI 2V [employer] Other XR knee BI 2V IMPRESSION: [facility] [employer] Other XR knee BI 2V Status post ACL repa ir on the left. [employer] Other XR knee BI 2V Mild degenerative ch anges are noted in the weightbearing joint spaces of the left. [employer] Other XR knee BI 2V No acute bony injury. [employer] Other XR knee BI 2V Impression dictated by: Joshua Garcia M.D.09/22/2022 2:17 PM [employer] Other XR knee BI 2V Dictation Location: [place] [address] [employer] Other XR knee BI 2V Transcribed By: PWS 09/22/22 1417 [employer] Other XR knee BI 2V Dictated By: Joshua Garcia II, MD 09/22/22 1415 [employer] Other XR knee BI 2V Signed By: [employer] Other XR knee BI 2V 09/22/22 1414 [employer] Other XR shoulder BI min 2Von 09-06 XR shoulder BI min 2V [facility] Main [place] [address] [place] [address] XRay Report Signed Patient: Mary Leal MR#: [id number] : 1970 Acct:[id number] Age/Sex: 52 / F ADM Date: 09/22/22 Loc: [facility] Room: Type: [facility] Attending Dr: Annette Harris MD Copies to: [...] Joshua Garcia M.D.09/22/2022 2:20 PM Dictation Location: [place] [address] Transcribed By: [facility] 09/22/22 1420 Dictated By: Joshua Garcia II, MD 09/22/22 1415 Signed By: 09/22/22 1420 [facility] XR shoulder BI min 2V XR/XR shoulder BI min 2V: Shoulder pain [employer] Other XR shoulder BI min 2V XR shoulder BI min 2V 09/22/2022 9:23 AM [employer] Other XR shoulder BI min 2V SIGNS AND SYMPTOMS : Bilateral shoulder pain with limited range of motion [employer] Other XR shoulder BI min 2V PROTOCOL: Frontal, Grashey, scapular Y, and axillary views of the bilateral shoulders [employer] Other XR shoulder BI min 2V COMPARISON: 02/26/2018 [employer] Other XR shoulder BI min 2V There has been bon y resorption of the lateral margin of the clavicle on the right suggesting [employer] Other XR shoulder BI min 2V osteomyelitis is w hich may be degenerative or traumatic. Mild hypertrophy of the AC joint is noted. [employer] Other XR shoulder BI min 2V The glenohumeral j oint is preserved on the right. There is subcortical sclerosis greater tuberosity [employer] Other XR shoulder BI min 2V of the right sugge sting underlying rotator cuff abnormalities. This is new when compared to the [employer] Other XR shoulder BI min 2V prior exam. The visualized right hemithorax is grossly intact. [employer] Other XR shoulder BI min 2V There is mild hype rtrophy of the left acromioclavicular joint. There is mild subcortical sclerosis [employer] Other XR shoulder BI min 2V of the greater tub erosity in the left suggesting underlying rotator cuff abnormalities. The [employer] Other XR shoulder BI min 2V glenohumeral joint is preserved. There is no fracture or dislocation. Visualized left hemithorax is [employer] Other XR shoulder BI min 2V grossly intact. [employer] Other XR shoulder BI min 2V There is partial visualization of intervertebral disc arthroplasty is noted within the lower [employer] Other XR shoulder BI min 2V cervical spine. Rudimentary ribs are noted at C7, right greater than left [employer] Other XR shoulder BI min 2V XR/XR shoulder BI min 2V [employer] Other XR shoulder BI min 2V Degenerative velasco es are noted in the bilateral shoulders with findings suspicious for bilateral [employer] Other XR shoulder BI min 2V rotator cuff abnormalities as above. 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 [employer] Other XR shoulder BI min 2V Rudimentary ribs a re noted at C7, right greater than left [employer] Other XR shoulder BI min 2V Impression dictate d by: Joshua Garcia M.D.09/22/2022 2:20 PM [employer] Other XR shoulder BI min 2V Transcribed By: KT Thorpe 09/22/22 1422 [employer] Other XR shoulder BI min 2V Dictated By: Joshua Garcia II, MD 09/22/22 1415 [employer] Other XR shoulder BI min 2V 09/22/22 142 [employer] Other SCREENING MAMMOGRAM W/RUSSEL, BILATERAL*on 09-14-2022 SCREENING [...] IS VERY IMPORTANT TO YOUR HEALTH. CURRENT [place] GUIDELINES RECOMMENDS ANNUAL MAMMOGRAPHY BEGINNING AT AGE 42. THIS FACILITY USUALLY USES A REMINDER SYSTEM TO ENSURE ALL POSITIONS RECEIVED REMINDER NOTIFICATIONS AT THE TIME BASED ON THE RECOMMENDATIONS OF THIS EXAM. Report reported and signed by Zaida Diaz on 09/16/2022 1334 Normal [facility] Behavioral Assistant Tobacco Screening.on 022 Adult depression screening assessment No [facility] DO Work Phone: Tobacco use status [facility] b) No [facility] DO Work Phone: COVID Quick Testingon 2021 Result Negative [employer] Other AMYLASEon 04-17-2022 Amylase [Catalytic activity/Vol] 38 U/L Normal 25-115 [facility] Comment on above: Performed By: #### P T #### [facility] [address] [place] [address] Dr. Mirian Velasco CBC AUTO DIFFon 04-17-2022 BASO # 0.1 103/ul Normal 0.0-0.1 [facility] Comment on above: Performed By: #### L ACT #### [facility] [address] [place] [address] Dr. Mirian Velasco Basophils/100 WBC (Bld) 1.0 % Normal 0.2-2.0 [facility] Comment on above: Performed By: #### L ACT #### [facility] [address] [place] [address] Dr. Mirian Velasco EO # 0.2 103/ul Normal 0.0-0.7 [facility] Comment on above: Performed By: #### L ACT #### [facility] [address] [place] [address] Dr. Mirian Velasco Eosinophils/100 WBC (Bld) 3.3 % Normal 0.9-7.0 [facility] Comment on above: Performed By: #### L ACT #### [facility] [address] [place] [address] Dr. Mirian Velasco Erythrocyte distribution width (RBC) [Ratio] 12.0 % Normal 11.0-15.0 [facility] Comment on above: Performed By: #### L ACT #### [facility] [address] [place] [address] Dr. Mirian Velasco Hematocrit (Bld) [Volume fraction] 37.3 % Normal 36.0-48.0 [facility] Comment on above: Performed By: #### L ACT #### [facility] [address] [place] [address] Dr. Mirian Velasco Hemoglobin (Bld) [Mass/Vol] 12.1 g/dL Normal 12.0-16.0 [facility] Comment on above: Performed By: #### L ACT #### [facility] [address] [place], [place] [id number] Dr. Mirian Velasco IG # 0.03 10e3/ul Normal 0.00-0.03 [facility] Comment on above: Performed By: #### L ACT #### [facility] [address] [place] [address] Dr. Mirian Velasco IG % 0.4 % Normal 0.0-0.5 [facility] Comment on above: Performed By: #### L ACT #### [facility] [address] [place] [address] Dr. Mirian Velasco LYMPH # 1.8 103/ul Normal 1.2-3.8 [facility] Comment on above: Performed By: #### L ACT #### [facility] [address] [place] [address] Dr. Mirian Velasco Lymphocytes/100 WBC (Bld) 25.2 % Normal 20.5-60.0 [facility] Comment on above: Performed By: #### L ACT #### [facility] [address] [place] [address] Dr. Mirian Velasco MANUAL DIFF REQ NO Normal [facility] Comment on above: Performed By: #### L ACT #### [facility] [address] [place] [address] Dr. Mirian Velasco MCH (RBC) [Entitic mass] 29.0 pg Normal 26.7-34.0 [facility] Comment on above: Performed By: #### L ACT #### [facility] [address] [place] [address] Dr. Mirian Velasco MCHC (RBC) [Mass/Vol] 32.4 g/dL Normal 29.9-35.2 [facility] Comment on above: Performed By: #### L ACT #### [facility] [address] [place] [address] Dr. Mirian Velasco MCV (RBC) [Entitic vol] 89.4 fL Normal 81.0-99.0 [facility] Comment on above: Performed By: #### L ACT #### [facility] [address] [place] [address] Dr. Mirian Velasco MONO # 0.4 103/ul Normal 0.3-0.8 [facility] Comment on above: Performed By: #### L ACT #### [facility] [address] [place] [address] Dr. Mirian Velasco Monocytes/100 WBC (Bld) 5.8 % Normal 1.7-12.0 [facility] Comment on above: Performed By: #### L ACT #### [facility] [address] [place] [address] Dr. Mirian Velasco NEUT # 4.6 103/ul Normal 1.4-6.5 [facility] Comment on above: Performed By: #### L ACT #### [facility] [address] [place] [address] Dr. Mirian Velasco Neutrophils/100 WBC (Bld) 64.3 % Normal 43.0-75.0 [facility] Comment on above: Performed By: #### L ACT #### [facility] [address] [place] [address] Dr. Mirian Velasco Platelet mean volume (Bld) [Entitic vol] 8.6 fL Critically low 9.5-13.5 [facility] Comment on above: Performed By: #### L ACT #### [facility] [address] [place] [address] Dr. Mirian Velasco PLT 597 103/ul Critically high 150-450 [facility] Comment on above: Performed By: #### L ACT #### [facility] [address] [place] [address] Dr. Mirian Velasco RBC 4.17 106/ul Critically low 4.20-5.40 [facility] Comment on above: Performed By: #### L ACT #### [facility] [address] [place] [address] Dr. Mirian Velasco WBC 7.2 103/ul Normal 4.0-11.0 [facility] Comment on above: Performed By: #### L ACT #### [facility] [address] [place] [address] ABD/PELVIS WO CONon [...] LORRI TRIPLETT Date: 2022-04-17 11:19 Normal [facility] ER URINE PROFILEon 2 Bilirubin Ql (U) Negative Normal NEGATIVE [facility] Comment on above: Performed By: #### P T #### [facility] [address] [place] [address] Dr. Mirian Velasco Clarity (U) CLEAR Normal CLEAR [facility] Comment on above: Performed By: #### P T #### [facility] [address] [place] [address] [address] Mirian Velasco Color (U) YELLOW Normal YELLOW [facility] Comment on above: Performed By: #### P T #### [facility] [address] [place] [address] Dr. Mirian KING A micrscopic examina tion will be performed if indicated. Normal [facility] Comment on above: Performed By: #### P T #### [facility] [address] [place] [address] Dr. Mirian Velasco Glucose Ql (U) Negative Normal NEGATIVE [facility] Comment on above: Performed By: #### P T #### [facility] [address] [address] [address] Mirian Velasco Hemoglobin Ql (U) Negative Normal NEGATIVE [facility] [place] [facility] Comment on above: Performed By: #### P T #### [facility] [address] [place] [address] Dr. Mirian Velasco Ketones Ql (U) Negative Normal NEGATIVE [facility] Comment on above: Performed By: #### P T #### [facility] [address] [place] [address] Dr. Mirian Velasco LEUKOCYTES Negative Normal NEGATIVE [facility] Comment on above: Performed By: #### P T #### [facility] [address] [place] [address] Dr. Mirian Velasco Nitrite Ql (U) Negative Normal NEGATIVE [facility] Comment on above: Performed By: #### P T #### [facility] [address] [place] [address] Dr. Mirian Velasco pH (U) 5.5 [pH] Normal 5-9 [facility] Comment on above: Performed By: #### P T #### [facility] [address] [place] [address] Dr. Mirian Velasco SPEC GRAVITY >=1.030 Abnormal 1.005-<=1. 025 [facility] Comment on above: Performed By: #### P T #### [facility] [address] [place] [address] Dr. Mirian Velasco UA PROTEIN Negative Normal NEGATIVE/ TRACE [facility] Comment on above: Performed By: #### P T #### [facility] [address] [place] [address] Dr. Mirian Velasco UR MICRO IND NOT INDICATED Normal [facility] Comment on above: Performed By: #### P T #### [facility] [address] [place] [address] Dr. Mirian Velasco Urobilinogen Qn (U) 0.2 {Lyubov'U}/dL Normal 0.2 - 1. 0 [facility] Comment on above: Performed By: #### P T #### [facility] [address] [place] [address] Dr. Mirian Velasco LIPASEon 04-17-2022 Lipase [Catalytic activity/Vol] 117.0 U/L Normal 73.0-393.0 [facility] Comment on above: Performed By: #### P T #### [facility] [address] [place] [address] Dr. Mirian Velasco PROF 14(COMP METB)on 022 Albumin [Mass/Vol] 3.5 g/dL Normal 3.4-5.0 [facility] Comment on above: Performed By: #### P T #### [facility] [address] [place] [address] Dr. Mirian Velasco Albumin/Globulin [Mass ratio] 0.9 {ratio} Normal [facility] Comment on above: Performed By: #### P T #### [facility] [address] [place] [address] Dr. Mirian Velasco ALP [Catalytic activity/Vol] 237 U/L Critically high 46-116 [facility] Comment on above: Performed By: #### P T #### [facility] [address] [place] [address] Dr. Mirian Velasco ALT [Catalytic activity/Vol] 53 U/L Normal 14-59 [facility] Comment on above: Performed By: #### P T #### [facility] [address] [place] [address] Dr. Mirian Velasco Anion gap [Moles/Vol] 11.0 mmol/L Normal [facility] Comment on above: Performed By: #### P T #### [facility] [address] [address] [address] Mirian Velasco AST [Catalytic activity/Vol] 45 U/L Critically high 15-37 [facility] Comment on above: Performed By: #### P T #### [facility] [address] [address] [address] Mirian Velasco Bilirubin [Mass/Vol] 0.2 mg/dL Normal 0.2-1.0 [facility] Comment on above: Performed By: #### P T #### [facility] [address] [address] [address] Mirian Velasco Calcium [Mass/Vol] 9.3 mg/dL Normal 8.5-10.1 [facility] Comment on above: Performed By: #### P T #### [facility] [address] [address] [address] Mirian Velasco Chloride [Moles/Vol] 105 mmol/L Normal 98-107 [facility] Comment on above: Performed By: #### P T #### [facility] [address] [address] [address] Mirian Velasco CO2 [Moles/Vol] 29.5 mmol/L Normal 21.0-32.0 [facility] Comment on above: Performed By: #### P T #### [facility] [address] [address] [address] Mirian Velasco Creatinine [Mass/Vol] 0.69 mg/dL Normal 0.55-1.02 [facility] Comment on above: Performed By: #### P T #### [facility] [address] [address] [address] Mirian Velasco EGFR-AF MAURITIAN >110 Normal >=60 [facility] Comment on above: Performed By: #### P T #### [facility] [address] [address] [address] Mirian Velasco EGFR-NON AF MAURITIAN >90 Normal >=60 [facility] Comment on above: Performed By: #### P T #### [facility] [address] [address] [address] Mirian Velasco Globulin (S) [Mass/Vol] 4.0 g/dL Normal [facility] Comment on above: Performed By: #### P T #### [facility] [address] [address] [address] Mirian Velasco Glucose [Mass/Vol] 107 mg/dL Critically high 74-106 [facility] Comment on above: Performed By: #### P T #### [facility] [address] [address] [address] Mirian Velasco Potassium [Moles/Vol] 4.5 mmol/L Normal 3.5-5.1 [facility] Comment on above: Performed By: #### P T #### [facility] [address] [place] [address] Dr. Mirian Velasco Protein [Mass/Vol] 7.5 g/dL Normal 6.4-8.2 [facility] Comment on above: Performed By: #### P T #### [facility] [address] [address] [address] Mirian Velasco Sodium [Moles/Vol] 141 mmol/L Normal 136-145 [facility] Comment on above: Performed By: #### P T #### [facility] [address] [place] [address] Dr. Mirian Velasco Urea nitrogen [Mass/Vol] 11.0 mg/dL Normal 7.0-18.0 [facility] Comment on above: Performed By: #### P T #### [facility] [address] [address] [address] Mirian Velasco Urea nitrogen/Creatinine [Mass ratio] 15.9 mg/mg Normal [facility] Comment on above: Performed By: #### P T #### [facility] [address] [place] [address] Dr. Mirian Velasco XR CHEST 1 Von 04-17-2022 XR CHEST 1 V EXAM: Chest x-ray HISTORY: Pain. COMPARISON: 02/20/2022 TECHNIQUE: AP portable upright view of the chest. FINDINGS: Heart and Vascularity are unremarkable. Lungs are free of focal infiltrates. No effusions are noted. Impression: No acute heart or lung disease identified. Electronically authenticated by: NICKI BUTT Date: 2022-04-17 11:03 Normal [facility] Basic metabolic 2000 panelon 04-05-2022 Anion gap [Moles/Vol] 13 mmol/L Normal 9-18 [facility] Comment on above: Order Comment: Speci men Type: BLOOD SPECIMEN Ordering Facility: [facility] Address: [address] [place] [address] Performed By: #### 5 8410-2 #### [facility] CLIA [id number] [address] [place] [address] [place] Calcium [Mass/Vol] 9.0 mg/dL Normal 8.5-10.2 [facility] Comment on above: Order Comment: Speci men Type: BLOOD SPECIMEN Ordering Facility: [facility] Address: [address] [place] [address] Performed By: #### 5 8410-2 #### [facility] CLIA [id number] [address] [place] [address] [place] Chloride [Moles/Vol] 104 mmol/L Normal 97-105 [facility] Comment on above: Order Comment: Speci men Type: BLOOD SPECIMEN Ordering Facility: [facility] Address: [address] [place] [address] Performed By: #### 5 8410-2 #### [facility] CLIA [id number] [address] [place] [address] [place] CO2 [Moles/Vol] 25 mmol/L Normal 22-30 [facility] Comment on above: Order Comment: Speci men Type: BLOOD SPECIMEN Ordering Facility: [facility] Address: [address] [place] [address] Performed By: #### 5 8410-2 #### [facility] CLIA [id number] [address] [place] [address] [place] Creatinine [Mass/Vol] 0.65 mg/dL Normal 0.58-0.96 [facility] Comment on above: Order Comment: Speci men Type: BLOOD SPECIMEN Ordering Facility: [facility] Address: [address] [place] [address] Performed By: #### 5 8410-2 #### [facility] CLIA [id number] [address] [place] [address] [place] ESTIMATED GLOMERULAR FILTRATION RATE 108 mL/min/1.73m??? Normal >=60 [facility] Comment on above: Order Comment: Leanne harrison Type: BLOOD SPECIMEN Ordering Facility: [facility] Address: [address] [place] [address] Result Comment: Mary mated Glomerular Filtration Rate [...] GFR. Performed By: #### 5 8410-2 #### [facility] CLIA [id number] [address] [place] [address] [place] Glucose [Mass/Vol] 109 mg/dL High 74-99 [facility] Comment on above: Order Comment: Leanne harrison Type: BLOOD SPECIMEN Ordering Facility: [facility] Address: [address] [place] [address] Result Comment: The [place] Diabetes Association (ADA) provides guidance for cutoff [...] Standards of Medical Care in Diabetes 2016, [place] [employer]. Diabetes Care. 2016.39(Suppl 1). Performed By: #### 5 8410-2 #### [facility] CLIA [id number] [address] [place] [address] [place] Potassium [Moles/Vol] 3.9 mmol/L Normal 3.7-5.1 [facility] Comment on above: Order Comment: Speci men Type: BLOOD SPECIMEN Ordering Facility: [facility] Address: [address] [place] [address] Performed By: #### 5 8410-2 #### [facility] CLIA [id number] [address] [place] [address] [place] Sodium [Moles/Vol] 142 mmol/L Normal 136-144 [facility] Comment on above: Order Comment: Speci men Type: BLOOD SPECIMEN Ordering Facility: [facility] Address: [address] [place] [address] Performed By: #### 5 8410-2 #### [facility] CLIA [id number] [address] [place] [address] [place] Urea nitrogen [Mass/Vol] 7 mg/dL Normal 7-21 [facility] Comment on above: Order Comment: Speci men Type: BLOOD SPECIMEN Ordering Facility: [facility] Address: [address] [place] [address] Performed By: #### 5 8410-2 #### [facility] CLIA [id number] [address] [place] [address] [place] CBC W Auto Differential pane l (Bld)on 04-05-2022 Basophils (Bld) [#/Vol] 0.05 10*3/uL Normal <0.11 [facility] Comment on above: Order Comment: Speci men Type: BLOOD SPECIMENOrdering Facility: [facility] [facility] Address: [address] [place] [address] Performed By: #### B MP #### [place] [address] Basophils/100 WBC (Bld) 0.7 % Normal [facility] Comment on above: Order Comment: Speci men Type: BLOOD SPECIMENOrdering Facility: [facility] Address: [address] [place] [address] Performed By: #### B MP #### [place] [id number] Differential cell count method Nom (Bld) Auto Normal [facility] Comment on above: Order Comment: Speci men Type: BLOOD SPECIMENOrdering Facility: [facility] Address: [address] [place] [address] Performed By: #### B MP #### [place] [phone] Eosinophils (Bld) [#/Vol] 0.55 10*3/uL High <0.46 [facility] Comment on above: Order Comment: Speci men Type: BLOOD SPECIMENOrdering Facility: [facility] Address: [address] [place] [address] Performed By: #### B MP #### [address] Eosinophils/100 WBC (Bld) 8.2 % Normal [facility] Comment on above: Order Comment: Speci men Type: BLOOD SPECIMENOrdering Facility: [facility] Address: [address] [place] [address] Performed By: #### B MP #### [place] [id number] Erythrocyte distribution width (RBC) [Ratio] 12.8 % Normal 11.5-15.0 [facility] Comment on above: Order Comment: Speci men Type: BLOOD SPECIMENOrdering Facility: [facility] Address: [address] [place] [address] Performed By: #### B MP #### [place] [phone] Hematocrit (Bld) [Volume fraction] 31.1 % Low 36.0-46.0 [facility] Comment on above: Order Comment: Speci men Type: BLOOD SPECIMENOrdering Facility: [facility] Address: [address] [place] [address] Performed By: #### B MP #### [place] [phone] Hemoglobin (Bld) [Mass/Vol] 10.5 g/dL Low 11.5-15.5 [facility] Comment on above: Order Comment: Speci men Type: BLOOD SPECIMENOrdering Facility: [facility] Address: [address] [place] [address] Performed By: #### B MP #### [place] [phone] IMMATURE GRAN % 0.4 % Normal [facility] Comment on above: Order Comment: Speci men Type: BLOOD SPECIMENOrdering Facility: [facility] Address: [address] [place] [address] Performed By: #### B MP #### [place] [phone] IMMATURE GRAN ABS 0.03 k/uL Normal <0.10 [facility] Comment on above: Order Comment: Speci men Type: BLOOD SPECIMENOrdering Facility: [facility] Address: [address] [place] [address] Performed By: #### B MP #### [phone] Lymphocytes (Bld) [#/Vol] 1.47 10*3/uL Normal 1.00-4.00 [facility] Comment on above: Order Comment: Speci men Type: BLOOD SPECIMENOrdering Facility: [facility] Address: [address] [place] [address] Performed By: #### B MP #### [phone] Lymphocytes/100 WBC (Bld) 22.0 % Normal [facility] Comment on above: Order Comment: Speci men Type: BLOOD SPECIMENOrdering Facility: [facility] Address: [address] [place] [address] Performed By: #### B MP #### [place] [phone] MCH (RBC) [Entitic mass] 29.9 pg Normal 26.0-34.0 [facility] Comment on above: Order Comment: Speci men Type: BLOOD SPECIMENOrdering Facility: [facility] Address: [address] [place] [address] Performed By: #### B MP #### [place] [phone] MCHC (RBC) [Mass/Vol] 33.8 g/dL Normal 30.5-36.0 [facility] Comment on above: Order Comment: Speci men Type: BLOOD SPECIMENOrdering Facility: [facility] Address: [address] [place] [address] Performed By: #### B MP #### [phone] MCV (RBC) [Entitic vol] 88.6 fL Normal 80.0-100.0 [facility] Comment on above: Order Comment: Speci men Type: BLOOD SPECIMENOrdering Facility: [facility] Address: [address] [place] [address] Performed By: #### B MP #### [phone] Monocytes (Bld) [#/Vol] 0.50 10*3/uL Normal <0.87 [facility] Comment on above: Order Comment: Speci men Type: BLOOD SPECIMENOrdering Facility: [facility] Address: [address] [place] [address] Performed By: #### B MP #### [phone] Monocytes/100 WBC (Bld) 7.5 % Normal [facility] Comment on above: Order Comment: Speci men Type: BLOOD SPECIMENOrdering Facility: [facility] Address: [address] [place] [address] Performed By: #### B MP #### [place] [phone] Neutrophils (Bld) [#/Vol] 4.08 10*3/uL Normal 1.45-7.50 [facility] Comment on above: Order Comment: Speci men Type: BLOOD SPECIMENOrdering Facility: [facility] Address: [address] [place] [address] Performed By: #### B MP #### [place] [phone] Neutrophils/100 WBC (Bld) 61.2 % Normal [facility] Comment on above: Order Comment: Speci men Type: BLOOD SPECIMENOrdering Facility: [facility] Address: [address] [place] [address] Performed By: #### B MP #### [phone] Nucleated RBC (Bld) [#/Vol] 10*3/uL Normal <0.01 [facility] Comment on above: Order Comment: Speci men Type: BLOOD SPECIMENOrdering Facility: [facility] Address: [address] [place] [address] Performed By: #### B MP #### [phone] Nucleated RBC/100 WBC (Bld) [Ratio] 0.0 /100 WBC Normal [facility] Comment on above: Order Comment: Speci men Type: BLOOD SPECIMENOrdering Facility: [facility] Address: [address] [place] [address] Performed By: #### B MP #### [place] [phone] Platelet mean volume (Bld) [Entitic vol] 8.9 fL Low 9.0-12.7 [facility] Comment on above: Order Comment: Speci men Type: BLOOD SPECIMENOrdering Facility: [facility] Address: [address] [place] [address] Performed By: #### B MP #### [place] [phone] Platelets (Bld) [#/Vol] 455 10*3/uL High 150-400 [facility] Comment on above: Order Comment: Speci men Type: BLOOD SPECIMENOrdering Facility: [facility] Address: [address] [place] [address] Performed By: #### B MP #### [place] [address] RBC (Bld) [#/Vol] 3.51 10*6/uL Low 3.90-5.20 [facility] Comment on above: Order Comment: Speci men Type: BLOOD SPECIMENOrdering Facility: [facility] Address: [address] [place] [address] Performed By: #### B MP #### [place] [phone] WBC (Bld) [#/Vol] 6.68 10*3/uL Normal 3.70-11.00 [facility] Comment on above: Order Comment: Speci men Type: BLOOD SPECIMENOrdering Facility: [facility] Address: [address] [place] [address] Performed By: #### B MP #### [place] [address] CNDSon 04-05-2022 CNDS HNO ID: [id number] Author: Jessi Sheets APRN.[employer] Service: Colorectal Author Type: Nurse Practitioner Type: Discharge Summary Filed: 04/05/2022 11:10 AM Note Text: ----- Attestation signed by Mary Obrien MD at 04/05/2022 12:[address] [facility] STAFF PHYSICIAN NOTE OF PERSONAL INVOLVEMENT IN CARE I have reviewed the discharge summary documented by the nurse practitioner and I personally participated in the tejada components. I have confirmed and edited as necessary, the PFSH and ROS obtained by others. I have discussed the case and management of the patient's care. Mary Obrien MD Date of Service: April 05, 2022 ----- DISCHARGE SUMMARY PATIENT NAME: Mary Leal ADMISSION [...] of the summary. CONSULTING TEAMS DURING HOSPITALIZATION: [facility] Treatment Team: Attending Provider: Mary Obrien MD [...] only. 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 Remained nauseated. POD4 re-advanced to full liquids [...] breakfast Qty: 30 capsule Refills: 5 Associated Diagnoses:Gastroesophagea l reflux disease, unspecified whether esophagitis present traZODone [...] by mo (more content not included)... Normal [facility] Magnesium SerPl-mCncon 04-05 Magnesium [Mass/Vol] 2.0 mg/dL Normal 1.7-2.3 [facility] Comment on above: Order Comment: Speci men Type: BLOOD SPECIMEN Ordering Facility: [facility] Address: [address] [place] [id number] Performed By: #### 5 8410-2 #### [facility] CLIA [id number] OF [facility] NURSING PROGon 04-05-2022 NURSING PROG HNO ID: [id number] Author: Liliana Mayer RN Service: ? 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 This note was completed by: Liliana Mayer [facility] NURSING PROG HNO ID: [id number] Author: Liliana Mayer RN Service: ? 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 Has three lap sites,open to air and glued.Showered this morning.Up in chair,ambulates in room without any difficulties.Denies pain. This note was completed by: Liliana Mayer [facility] NURSING PROG HNO ID: [id number] Author: Eagle Gu RN Service: ? Author Type: Registered Nurse Type: Nursing Progress Note Filed: 04/04/2022 10:58 PM Note Text: Nursing Progress Note Patient Name: Mary Leal Patient Location: [address]/AL1G-56 Daily Note:04/04/22 2140 Pt is alert and oriented x3. Pt mabulating independently. Surgical sites intact. Pt refusing IVF, pt states she drinks enough water. This note was completed by: Eagle Gu [facility] NUTRITIONon 04-05-2022 NUTRITION HNO ID: [id number] Author: Merced Morales DTR Service: Nutrition Therapy Author Type: Business And Marketing Teacher Type: Nutrition Filed: 04/05/2022 10:42 AM Note Text: NUTRITION THERAPY HIDE HOUSE SUPERVISOR NOTE SERVICE DATE: 04/05/2022 SERVICE TIME: 9:45 AM Visit Type: Length of Stay Plan of Care: Supplements: Impact AR Follow-Up: [facility] Reassessment Nursing Admission Assessment Malnutrition Score: [...] DATE: April 05, 2022 TIME: 9:54 AM Normal [facility] Phosphate SerPl-mCncon 04-05 Phosphate [Mass/Vol] 4.6 mg/dL Normal 2.7-4.8 [facility] Comment on above: Order Comment: Speci men Type: BLOOD SPECIMEN Ordering Facility: [facility] Address: [address] [place] [address] Performed By: #### 5 8410-2 #### [facility] CLIA [id number] [place] [address] [place] Basic metabolic 2000 panelon 04-04-2022 Anion gap [Moles/Vol] 10 mmol/L Normal 9-18 [facility] Comment on above: Order Comment: Speci men Type: BLOOD SPECIMENOrdering Facility: [facility] Address: [address] [place] [address] Performed By: #### 2 4321-2, , 2776-11 ####[facility] [id number] [place] [id number] [place] Calcium [Mass/Vol] 8.9 mg/dL Normal 8.5-10.2 [facility] Comment on above: Order Comment: Speci men Type: BLOOD SPECIMENOrdering Facility: [facility] Address: [address] [place] [address] Performed By: #### 2 4321-2, , 2776-11 ####[facility] [id number] [place] [id number] [place] Chloride [Moles/Vol] 104 mmol/L Normal 97-105 [facility] Comment on above: Order Comment: Speci men Type: BLOOD SPECIMENOrdering Facility: [facility] Address: [address] [place], [place] [address] Performed By: #### 2 4321-2, , 2776-11 ####[facility] [id number] [place] [id number] [facility] CO2 [Moles/Vol] 26 mmol/L Normal 22-30 [facility] Comment on above: Order Comment: Speci men Type: BLOOD SPECIMENOrdering Facility: [facility] Address: [address] [place] [address] Performed By: #### 2 4321-2, , 2776-11 ####[facility] [id number] [address] Creatinine [Mass/Vol] 0.56 mg/dL Low 0.58-0.96 [facility] Comment on above: Order Comment: Speci men Type: BLOOD SPECIMENOrdering Facility: [facility] Address: [address] [place] [address] Performed By: #### 2 4321-2, , 2776-11 ####[facility]ORY[facility]IA [id number] [address] ESTIMATED GLOMERULAR FILTRATION RATE 112 mL/min/1.73m??? Normal >=60 [facility] Comment on above: Order Comment: Speci men Type: BLOOD SPECIMENOrdering Facility: [facility] Address: [address] [place] [address] Result Comment: Mary mated Glomerular Filtration Rate [...] #### 2 4321-2, , 2776-11 ####[facility]ORY[facility]IA [id number] [place] [address] [place] Glucose [Mass/Vol] 112 mg/dL High 74-99 [facility] Comment on above: Order Comment: Everettei men Type: BLOOD SPECIMENOrdering Facility: [facility] Address: [address] [place], [place] [phone] Result Comment: The [place] Diabetes Association (ADA) provides guidance for cutoff [...] Standards of Medical Care in Diabetes 2016, [place] [employer] Association. Diabetes Care. 2016.39(Suppl 1). Performed By: #### 2 4321-2, , 2776-11 ####[facility] LABORATORYCLIA [id number] [place] [id number] [place] Potassium [Moles/Vol] 3.9 mmol/L Normal 3.7-5.1 [facility] Comment on above: Order Comment: Leanne terry Type: BLOOD SPECIMENOrdering Facility: [facility] Address: [address] [place], [place] [address] Performed By: #### 2 4321-2, , 2776-11 ####[facility] LABORATORYCLIA [id number] [place] [id number] [place] Sodium [Moles/Vol] 140 mmol/L Normal 136-144 [facility] Comment on above: Order Comment: Everettei men Type: BLOOD SPECIMENOrdering Facility: [facility] Address: [address] [place], [place] [address] Performed By: #### 2 4321-2, , 2776-11 ####[facility] LABORATORYCLIA [id number] [address] [place] Urea nitrogen [Mass/Vol] 3 mg/dL Low 7- [facility] Comment on above: Order Comment: Speci men Type: BLOOD SPECIMENOrdering Facility: [facility] Address: [address] [place] [address] Performed By: #### 2 4321-2, 25265-3, 2777-1 ####[facility] [id number] [place] [address] [place] CBC W Auto Differential pane l (Bld)on 04-04-2022 Basophils (Bld) [#/Vol] 0.03 10*3/uL Normal <0.11 [facility] Comment on above: Order Comment: Speci men Type: BLOOD SPECIMEN Ordering Facility: [facility] Address: [address] [place] [address] Performed By: #### 5 7021-8 #### [facility] CLIA [id number] [address] [place] [address] [place] Basophils/100 WBC (Bld) 0.5 % Normal [facility] Comment on above: Order Comment: Speci men Type: BLOOD SPECIMEN Ordering Facility: [facility] Address: [address] [place] [address] Performed By: #### 5 7021-8 #### [facility] CLIA [id number] [address] [place] [address] [place] Differential cell count method Nom (Bld) Auto Normal [facility] Comment on above: Order Comment: Speci men Type: BLOOD SPECIMEN Ordering Facility: [facility] Address: [address] [place] [address] Performed By: #### 5 7021-8 #### [facility] CLIA [id number] [address] [place] [address] [place] Eosinophils (Bld) [#/Vol] 0.48 10*3/uL High <0.46 [facility] Comment on above: Order Comment: Speci men Type: BLOOD SPECIMEN [facility]ing [facility]: [facility] Address: [address] [place] [address] Performed By: #### 5 7021-8 #### [facility] CLIA [id number] [address] [place] [address] [place] Eosinophils/100 WBC (Bld) 7.7 % Normal [facility] Comment on above: Order Comment: Speci men Type: BLOOD SPECIMEN Ordering Facility: [facility] Address: [address] [place] [address] Performed By: #### 5 7021-8 #### [facility] CLIA [id number] [address] [place] [address] [place] Erythrocyte distribution width (RBC) [Ratio] 12.7 % Normal 11.5-15.0 [facility] Comment on above: Order Comment: Speci men Type: BLOOD SPECIMEN Ordering Facility: [facility] Address: [address] [place] [address] Performed By: #### 5 7021-8 #### [facility] CLIA [id number] [address] [place] [address] [place] Hematocrit (Bld) [Volume fraction] 31.2 % Low 36.0-46.0 [facility] Comment on above: Order Comment: Speci men Type: BLOOD SPECIMEN [facility]ing [facility]: [facility] Address: [address] [place] [address] Performed By: #### 5 7021-8 #### [facility] CLIA [id number] [address] [place] [address] [place] Hemoglobin (Bld) [Mass/Vol] 10.7 g/dL Low 11.5-15.5 [facility] Comment on above: Order Comment: Speci men Type: BLOOD SPECIMEN Ordering Facility: [facility] Address: [address] [place] [address] Performed By: #### 5 7021-8 #### [facility] CLIA [id number] [address] [place] [address] [place] IMMATURE GRAN % 0.5 % Normal [facility] Comment on above: Order Comment: Speci men Type: BLOOD SPECIMEN Ordering Facility: [facility] Address: [address] [place] [address] Performed By: #### 5 7021-8 #### [facility] CLIA [id number] [address] [place] [address] [place] IMMATURE GRAN ABS 0.03 k/uL Normal <0.10 [facility] Comment on above: Order Comment: Speci men Type: BLOOD SPECIMEN Ordering Facility: [facility] Address: [address] [place] [address] Performed By: #### 5 7021-8 #### [facility] CLIA [id number] [address] [place] [address] [place] Lymphocytes (Bld) [#/Vol] 1.13 10*3/uL Normal 1.00-4.00 [facility] Comment on above: Order Comment: Speci men Type: BLOOD SPECIMEN Ordering Facility: [facility] Address: [address] [place] [address] Performed By: #### 5 7021-8 #### [facility] CLIA [id number] [address] [place] [address] Lymphocytes/100 WBC (Bld) 18.2 % Normal [facility] Comment on above: Order Comment: Speci men Type: BLOOD SPECIMEN Ordering Facility: [facility] Address: [address] [place] [address] Performed By: #### 5 7021-8 #### [facility] CLIA [id number] [address] [place] [address] [place] MCH (RBC) [Entitic mass] 29.9 pg Normal 26.0-34.0 [facility] Comment on above: Order Comment: Speci men Type: BLOOD SPECIMEN Ordering Facility: [facility] Address: [address] [place] [address] Performed By: #### 5 7021-8 #### [facility] CLIA [id number] [address] [place] [address] [place] MCHC (RBC) [Mass/Vol] 34.3 g/dL Normal 30.5-36.0 [facility] Comment on above: Order Comment: Speci men Type: BLOOD SPECIMEN Ordering Facility: [facility] Address: [address] [place] [address] Performed By: #### 5 7021-8 #### [facility] CLIA [id number] [address] [place] [address] [place] MCV (RBC) [Entitic vol] 87.2 fL Normal 80.0-100.0 [facility] Comment on above: Order Comment: Speci men Type: BLOOD SPECIMEN Ordering Facility: [facility] Address: [address] [place] [address] Performed By: #### 5 7021-8 #### [facility] CLIA [id number] [address] [place] [address] [place] Monocytes (Bld) [#/Vol] 0.36 10*3/uL Normal <0.87 [facility] Comment on above: Order Comment: Speci men Type: BLOOD SPECIMEN Ordering Facility: [facility] Address: [address] [place] [address] Performed By: #### 5 7021-8 #### [facility] CLIA [id number] [address] [place] [address] [place] Monocytes/100 WBC (Bld) 5.8 % Normal [facility] Comment on above: Order Comment: Speci men Type: BLOOD SPECIMEN Ordering Facility: [facility] Address: [address] [place] [address] Performed By: #### 5 7021-8 #### [facility] CLIA [id number] [address] [place] [address] [place] Neutrophils (Bld) [#/Vol] 4.18 10*3/uL Normal 1.45-7.50 [facility] Comment on above: Order Comment: Speci men Type: BLOOD SPECIMEN Ordering Facility: [facility] Address: [address] [place] [address] Performed By: #### 5 7021-8 #### [facility] CLIA [id number] [address] [place] [address] [place] Neutrophils/100 WBC (Bld) 67.3 % Normal [facility] Comment on above: Order Comment: Speci men Type: BLOOD SPECIMEN Ordering Facility: [facility] Address: [address] [place] [address] Performed By: #### 5 7021-8 #### [facility] CLIA [id number] [address] [place] [address] [place] Nucleated RBC (Bld) [#/Vol] 10*3/uL Normal <0.01 [facility] Comment on above: Order Comment: Speci men Type: BLOOD SPECIMEN Ordering Facility: [facility] Address: [address] [place] [address] Performed By: #### 5 7021-8 #### [facility] CLIA [id number] [address] [place] [address] [place] Nucleated RBC/100 WBC (Bld) [Ratio] 0.0 /100 WBC Normal [facility] Comment on above: Order Comment: Speci men Type: BLOOD SPECIMEN Ordering Facility: [facility] Address: [address] [place] [address] Performed By: #### 5 7021-8 #### [facility] CLIA [id number] [address] [place] [address] [place] Platelet mean volume (Bld) [Entitic vol] 8.7 fL Low 9.0-12.7 [facility] Comment on above: Order Comment: Speci men Type: BLOOD SPECIMEN Ordering Facility: [facility] Address: [address] [place], [place] [address] Performed By: #### 5 7021-8 #### [facility] CLIA [id number] [address] [place] [address] [place] Platelets (Bld) [#/Vol] 436 10*3/uL High 150-400 [facility] Comment on above: Order Comment: Speci men Type: BLOOD SPECIMEN Ordering Facility: [facility] Address: [address] [place] [address] Performed By: #### 5 7021-8 #### [facility] CLIA [id number] [address] [place] [address] [place] RBC (Bld) [#/Vol] 3.58 10*6/uL Low 3.90-5.20 [facility] Comment on above: Order Comment: Speci men Type: BLOOD SPECIMEN Ordering Facility: [facility] Address: [address] [place] [address] Performed By: #### 5 7021-8 #### [facility] CLIA [id number] [address] [place] [address] [place] [facility] [place] WBC (Bld) [#/Vol] 6.21 10*3/uL Normal 3.70-11.00 [facility] Comment on above: Order Comment: Speci men Type: BLOOD SPECIMEN Ordering Facility: [facility] Address: [address] [place] [address] Performed By: #### 5 7021-8 #### [facility] CLIA [id number] [address] [place] [address] [place] Magnesium SerPl-mCncon 04-04 Magnesium [Mass/Vol] 2.1 mg/dL Normal 1.7-2.3 [facility] Comment on above: Order Comment: Speci men Type: BLOOD SPECIMENOrdering Facility: [facility] Address: [address] [place] [address] Performed By: #### 2 4321-2, 43983-7, 2777-1 ####[facility] [id number] [place] [address] [place] NURSING PROGon 04-04-2022 NURSING PROG HNO ID: [id number] Author: Juan Crowley RN Service: Nursing Author Type: Registered Nurse Type: Nursing Progress Note Filed: 04/04/2022 7:47 PM Note Text: Nursing Progress Note Patient Name: Mary Leal Patient Location: Daily Note:Patient refusing further IVF. This note was completed by: [facility] NURSING PROG HNO ID: [id number] Author: Juan Crowley, MAKI Service: Nursing Author Type: Registered Nurse Type: Nursing Progress Note Filed: 04/04/2022 11:11 AM Note Text: Nursing Progress Note Patient Name: Mary Leal Patient Location: [address]/LI2R-57 Daily Note: Patient up in chair and up ambulating in hallway with steady gait. VSS. RA POx. IVF as ordered. Transverse and Lap sites BUTCHER SUPERVISOR with glue. Dressing to old ostomy site CDI. Abdomen soft and tender. Patient states, feeling much better . Diet advanced, yet patient did not take in 25% of tray. Patient informed RN that I am leaving today. Do what you gotta do. I can do all of this at home . Dr Lamas paged and notified, but post call. Will page SR electronic industrial controls mechanic. Will continue to monitor. Call light in reach. This note was completed by: [facility] Phosphate SerPl-mCncon 04-04 Phosphate [Mass/Vol] 3.2 mg/dL Normal 2.7-4.8 [facility] Comment on above: Order Comment: Speci men Type: BLOOD SPECIMENOrdering Facility: [facility] Address: [address] [place], [place] [id number] Performed By: #### 2 4321-2, 14650-2, 2777-1 ####[facility] [id number] [place] [address] [place] [facility] ALLIED HEALTHon 04-03-2022 ALLIED HEALTH HNO ID: [id number] Author: JAHAIRA Mratinez Service: ? Author Type: Steel Heater Type: Allied Health Filed: 04/03/2022 5:35 PM [...] DATA: Inpatient: see LDA documentation SIGNED BY: JAHAIRA Martinez April 03, 2022 5:35 PM Normal [facility] Basic metabolic 2000 panelon 04-03-2022 Anion gap [Moles/Vol] 10 mmol/L Normal 9-18 [facility] Comment on above: Order Comment: Speci men Type: BLOOD SPECIMENOrdering Facility: [facility] Address: [address] [place] [address] Performed By: #### B MP #### [place] [phone] Calcium [Mass/Vol] 8.4 mg/dL Low 8.5-10.2 [facility] Comment on above: Order Comment: Speci men Type: BLOOD SPECIMENOrdering Facility: [facility] Address: [address] [place] [address] Performed By: #### B MP #### [place] [phone] Chloride [Moles/Vol] 103 mmol/L Normal 97-105 [facility] Comment on above: Order Comment: Speci [facility] Type: BLOOD SPECIMENOrdering Facility: [facility] Address: [address] [place] [address] Performed By: #### B MP #### [place] [phone] CO2 [Moles/Vol] 25 mmol/L Normal 22-30 [facility] Comment on above: Order Comment: Speci men Type: BLOOD SPECIMENOrdering Facility: [facility] Address: [address] [place] [address] Performed By: #### B MP #### [place] [phone] Creatinine [Mass/Vol] 0.60 mg/dL Normal 0.58-0.96 [facility] Comment on above: Order Comment: Speci men Type: BLOOD SPECIMENOrdering Facility: [facility] Address: [address] [place] [address] Performed By: #### B MP #### [place] [phone] ESTIMATED GLOMERULAR FILTRATION RATE 110 mL/min/1.73m??? Normal >=60 [facility] Comment on above: Order Comment: Speci men Type: BLOOD SPECIMENOrdering Facility: [facility] Address: [address] [place] [address] Result Comment: Mary mated Glomerular Filtration Rate [...] GFR. Performed By: #### B MP #### [place] [phone] Glucose [Mass/Vol] 106 mg/dL High 74-99 [facility] Comment on above: Order Comment: Speci harrison Type: BLOOD SPECIMENOrdering Facility: [facility] Address: [address] [place], [place] [address] Result Comment: The [place] Diabetes Association (ADA) provides guidance for cutoff [...] Standards of Medical Care in Diabetes 2016, [place] [employer]. Diabetes Care. 2016.39(Suppl 1). Performed By: #### B MP #### [place] [phone] Potassium [Moles/Vol] 3.3 mmol/L Low 3.7-5.1 [facility] Comment on above: Order Comment: Speci men Type: BLOOD SPECIMENOrdering Facility: [facility] Address: [address] [place] [address] Performed By: #### B MP #### [place] [phone] Sodium [Moles/Vol] 138 mmol/L Normal 136-144 [facility] Comment on above: Order Comment: Speci men Type: BLOOD SPECIMENOrdering Facility: [facility] Address: [address] [place] [address] Performed By: #### B MP #### [place] [phone] Urea nitrogen [Mass/Vol] 4 mg/dL Low 7-21 [facility] Comment on above: Order Comment: Speci men Type: BLOOD SPECIMENOrdering Facility: [facility] Address: [address] [place] [address] Performed By: #### B MP #### [place] [phone] CBC W Auto Differential pane l (Bld)on 04-03-2022 Basophils (Bld) [#/Vol] 0.03 10*3/uL Normal <0.11 [facility] Comment on above: Order Comment: Speci men Type: BLOOD SPECIMENOrdering Facility: [facility] Address: [address] [place] [address] Performed By: #### B MP #### [id number] Basophils/100 WBC (Bld) 0.4 % Normal [facility] Comment on above: Order Comment: Speci men Type: BLOOD SPECIMENOrdering Facility: [facility] Address: [address] [place] [address] Performed By: #### B MP #### [place] [phone] Differential cell count method Nom (Bld) Auto Normal [facility] Comment on above: Order Comment: Speci men Type: BLOOD SPECIMENOrdering Facility: [facility] Address: [address] [place] [address] Performed By: #### B MP #### [place] [phone] Eosinophils (Bld) [#/Vol] 0.48 10*3/uL High <0.46 [facility] Comment on above: Order Comment: Speci men Type: BLOOD SPECIMENOrdering Facility: [facility] Address: [address] [place] [address] Performed By: #### B MP #### [place] [phone] Eosinophils/100 WBC (Bld) 6.5 % Normal [facility] Comment on above: Order Comment: Speci men Type: BLOOD SPECIMENOrdering Facility: [facility] Address: [address] [place] [address] Performed By: #### B MP #### [place] [id number] Erythrocyte distribution width (RBC) [Ratio] 12.5 % Normal 11.5-15.0 [facility] Comment on above: Order Comment: Speci men Type: BLOOD SPECIMENOrdering Facility: [facility] Address: [address] [place] [address] Performed By: #### B MP #### [phone] Hematocrit (Bld) [Volume fraction] 29.5 % Low 36.0-46.0 [facility] Comment on above: Order Comment: Speci men Type: BLOOD SPECIMENOrdering Facility: [facility] Address: [address] [place] [address] Performed By: #### B MP #### [place] [phone] Hemoglobin (Bld) [Mass/Vol] 10.2 g/dL Low 11.5-15.5 [facility] Comment on above: Order Comment: Speci men Type: BLOOD SPECIMENOrdering Facility: [facility] Address: [address] [place] [address] Performed By: #### B MP #### [place] [phone] IMMATURE GRAN % 0.5 % Normal [facility] Comment on above: Order Comment: Speci men Type: BLOOD SPECIMENOrdering Facility: [facility] Address: [address] [place] [address] Performed By: #### B MP #### [place] [phone] IMMATURE GRAN ABS 0.04 k/uL Normal <0.10 [facility] Comment on above: Order Comment: Speci men Type: BLOOD SPECIMENOrdering Facility: [facility] Address: [address] [place] [address] Performed By: #### B MP #### [place] [phone] Lymphocytes (Bld) [#/Vol] 1.11 10*3/uL Normal 1.00-4.00 [facility] Comment on above: Order Comment: Speci men Type: BLOOD SPECIMENOrdering Facility: [facility] Address: [address] [place] [address] Performed By: #### B MP #### [place] [phone] Lymphocytes/100 WBC (Bld) 15.0 % Normal [facility] Comment on above: Order Comment: Speci men Type: BLOOD SPECIMENOrdering Facility: [facility] Address: [address] [place] [address] Performed By: #### B MP #### [place] [phone] MCH (RBC) [Entitic mass] 30.1 pg Normal 26.0-34.0 [facility] Comment on above: Order Comment: Speci men Type: BLOOD SPECIMENOrdering Facility: [facility] Address: [address] [place] [address] Performed By: #### B MP #### [place] [phone] MCHC (RBC) [Mass/Vol] 34.6 g/dL Normal 30.5-36.0 [facility] Comment on above: Order Comment: Speci men Type: BLOOD SPECIMENOrdering Facility: [facility] Address: [address] [place] [address] Performed By: #### B MP #### [place] [phone] MCV (RBC) [Entitic vol] 87.0 fL Normal 80.0-100.0 [facility] Comment on above: Order Comment: Speci men Type: BLOOD SPECIMENOrdering Facility: [facility] Address: [address] [place] [address] Performed By: #### B MP #### [id number] Monocytes (Bld) [#/Vol] 0.46 10*3/uL Normal <0.87 [facility] Comment on above: Order Comment: Speci men Type: BLOOD SPECIMENOrdering Facility: [facility] Address: [address] [place] [address] Performed By: #### B MP #### [place] [phone] Monocytes/100 WBC (Bld) 6.2 % Normal [facility] Comment on above: Order Comment: Speci men Type: BLOOD SPECIMENOrdering Facility: [facility] Address: [address] [place] [address] Performed By: #### B MP #### [place] [phone] Neutrophils (Bld) [#/Vol] 5.27 10*3/uL Normal 1.45-7.50 [facility] Comment on above: Order Comment: Speci men Type: BLOOD SPECIMENOrdering Facility: [facility] Address: [address] [place] [address] Performed By: #### B MP #### [place] [phone] Neutrophils/100 WBC (Bld) 71.4 % Normal [facility] Comment on above: Order Comment: Speci men Type: BLOOD SPECIMENOrdering Facility: [facility] Address: [address] [place] [address] Performed By: #### B MP #### [place] [phone] Nucleated RBC (Bld) [#/Vol] 10*3/uL Normal <0.01 [facility] Comment on above: Order Comment: Speci men Type: BLOOD SPECIMENOrdering Facility: [facility] Address: [address] [place] [address] Performed By: #### B MP #### [id number] Nucleated RBC/100 WBC (Bld) [Ratio] 0.0 /100 WBC Normal [facility] Comment on above: Order Comment: Speci men Type: BLOOD SPECIMENOrdering Facility: [facility] Address: [address] [place] [address] Performed By: #### B MP #### [phone] Platelet mean volume (Bld) [Entitic vol] 8.6 fL Low 9.0-12.7 [facility] Comment on above: Order Comment: Speci men Type: BLOOD SPECIMENOrdering Facility: [facility] Address: [address] [place], [place] [address] Performed By: #### B MP #### [place] [phone] Platelets (Bld) [#/Vol] 342 10*3/uL Normal 150-400 [facility] Comment on above: Order Comment: Speci men Type: BLOOD SPECIMENOrdering Facility: [facility] Address: [address] [place] [address] Performed By: #### B MP #### [place] [phone] RBC (Bld) [#/Vol] 3.39 10*6/uL Low 3.90-5.20 [facility] Comment on above: Order Comment: Speci men Type: BLOOD SPECIMENOrdering Facility: [facility] Address: [address] [place] [address] Performed By: #### B MP #### [place] [phone] WBC (Bld) [#/Vol] 7.39 10*3/uL Normal 3.70-11.00 [facility] Comment on above: Order Comment: Speci men Type: BLOOD SPECIMENOrdering Facility: [facility] Address: [address] [place] [address] Performed By: #### B MP #### [place] [phone] CONSULT PROGon 04-03-2022 CONSULT PROG HNO ID: [id number] Author: Sarwat Huddleston PA-C Service: Pain Management Author Type: Physician Tumbler Tender Type: Consult Progress Note Filed: 04/03/2022 8:39 AM Note Text: PERIPHERAL NERVE CATHETER PROGRESS NOTE PATIENT NAME: Mayr Leal SERVICE DATE: 04/03/2022 SERVICE TIME: 7:55 [...] and solution: Yes. Solution Ropi 0.1% at 02?e. Adjuvant Pain Medication: See below Current Facility-Administered [...] appears comf (more content not included)... Normal [facility] CT ABD/PEL W IVCONon 022 CT ABD/PEL [...] Lower thorax: Visualized lung bases are clear. [place] (topogram) images: No additional findings. IMPRESSION: Postsurgical [...] collection is present in the lower pelvis Instructional Material Director: MELODYB Transcribe Date/Time: Apr 03 2022 9:00P Dictated by : SHELBY ESPINOSA MD This examination was interpreted and the report reviewed and electronically signed by: SHELBY ESPINOSA MD on Apr 03 2022 9:12PM EST [id number] [facility] Magnesium SerPl-mCncon 04-03 Magnesium [Mass/Vol] 1.6 mg/dL Low 1.7-2.3 [facility] Comment on above: Order Comment: Speci men Type: BLOOD SPECIMENOrdering Facility: [facility] Address: [address] [place], [place] [id number] Performed By: #### B MP #### [place] [address] NURSING PROGon 04-03-2022 NURSING PROG HNO ID: [id number] Author: Annette Ford RN Service: ? Author Type: Registered Nurse Type: Nursing Progress Note Filed: 04/03/2022 9:39 PM Note Text: Nursing Progress Note Patient Name: Mary Leal Patient Location: /BT1U-55 Daily Note: 2129: Pt declined to have all oral medications. They just go right through me. I cannot take them. . Made RN aware. This note was completed by: Annette Ford [facility] NURSING PROG HNO ID: [id number] Author: Juan Crowley RN Service: Nursing Author Type: Registered Nurse Type: Nursing Progress Note Filed: 04/03/2022 2:51 PM Note Text: Nursing Progress Note Patient Name: Mary Leal Patient Location: /[address]-22 Daily Note:Patient unable to tolerate powder form of potassium due to nausea. Patient unable to tolerate IV form, it feels like It's paralyzing my arm . Attempted to dilute boluses and lower rates with no success. SR paged with events [phone]). Awaiting further orders. This note was completed by: Juan [facility] NURSING PROG HNO ID: [id number] Author: Juan Crowley RN Service: Nursing Author Type: Registered Nurse Type: Nursing Progress Note Filed: 04/03/2022 11:33 AM Note Text: Nursing Progress Note Patient Name: Mary Leal Patient Location: 3B/ Daily Note: Patient Up independently in room and in hallway. IVF infusing as ordered. B/L Tap Blocks discontinued and removed by PA. Old ostomy dressing changed. Scant amount of drainage on dressing. Fresh ABD with tape applied. 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 BS Hypoactive. No flatus per [...] monitor. This note was completed by: Juan [facility] NURSING PROG HNO ID: [id number] Author: Chava Remy RN Service: PICC Team [...] 03, 2022 TIME: 8:37 AM PAGER/CONTACT #: [facility] NURSING PROG HNO ID: [id number] Author: Kev Leone RN Service: ? Author Type: Registered Nurse Type: Nursing Progress Note Filed: 04/03/2022 3:50 AM Note Text: Nursing Progress Note Patient Name: Mary Leal Patient Location: [place] [address]/[address]-22 Daily Note: 2100: Pt refusing all PO meds at this time, states she's concerned that she's not digesting them properly. Paan currently being controlled with bilateral blocks and PRN IV pain medication. This note was completed by: Kev Leone [facility] Phosphate SerPl-mCncon 04-03 Phosphate [Mass/Vol] 3.3 mg/dL Normal 2.7-4.8 [facility] Comment on above: Order Comment: Speci men Type: BLOOD SPECIMENOrdering Facility: [facility] Address: [address] [place] [id number] Performed By: #### B #### [place] [address] ALLIED HEALTHon 04-02-2022 ALLIED HEALTH HNO ID: [id number] Author: RT Ban(R) Service: Radiology Author Type: Technologist Type: Allied [...] RT Ban(R) April 02, 2022 9:12 AM Normal [facility] CONSULT PROGon 04-02-2022 CONSULT PROG HNO ID: [id number] Author: Sarwat Huddleston PA-C Service: Pain Management Author Type: Physician Tumbler Tender Type: Consult Progress Note Filed: 04/02/2022 9:00 [...] 29.3 5 (more content not included)... Normal [facility] NURSING PROGon 04-02-2022 NURSING PROG HNO ID: [id number] Author: Juan Crowley, RN Service: Nursing Author Type: Registered Nurse Type: Nursing Progress Note Filed: 04/02/2022 1:23 PM Note Text: Nursing Progress Note Patient Name: Mary Leal Patient Location: [address]/AZ0T-96 Daily Note: Patient AANDOx3. VSS. RA POx. D51/2NS at 75 ml/hr. B/L Tap Block dressings CDI. Old ostomy with ABD and tape, CDI. 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 NPO status. Medicated with IV [...] This note was completed by: Juan Crowley [facility] XR ABDOMEN 1V SUPINEon 04-02 XR [...] may be of help for further evaluation. Instructional Material Director: CAPRI Transcribe Date/Time: Apr 02 2022 9:16A Dictated by : JOAQUIN BRYANT MD This examination was interpreted and the report reviewed and electronically signed by: JOAQUIN BRYANT MD on Apr 02 2022 9:19AM EST [id number] Normal [facility] Basic metabolic 2000 panelon 04-01-2022 Anion gap [Moles/Vol] 9 mmol/L Normal 9-18 [facility] Comment on above: Order Comment: Speci men Type: BLOOD SPECIMENOrdering Facility: [facility] Address: [address] [place] [address] Performed By: #### B MP #### [place] [phone] Calcium [Mass/Vol] 7.9 mg/dL Low 8.5-10.2 [facility] Comment on above: Order Comment: Speci men Type: BLOOD SPECIMENOrdering Facility: [facility] Address: [address] [place] [address] Performed By: #### B MP #### [id number] Chloride [Moles/Vol] 106 mmol/L High 97-105 [facility] Comment on above: Order Comment: Speci men Type: BLOOD SPECIMENOrdering Facility: [facility] Address: [address] [place] [address] Performed By: #### B MP #### [id number] CO2 [Moles/Vol] 26 mmol/L Normal 22-30 [facility] Comment on above: Order Comment: Speci men Type: BLOOD SPECIMENOrdering Facility: [facility] Address: [address] [place] [address] Performed By: #### B MP #### [place] [phone] Creatinine [Mass/Vol] 0.68 mg/dL Normal 0.58-0.96 [facility] Comment on above: Order Comment: Speci men Type: BLOOD SPECIMENOrdering Facility: [facility] Address: [address] [place] [id number] Performed By: #### B MP #### [place] [id number] [place] [address] ESTIMATED GLOMERULAR FILTRATION RATE 107 mL/min/1.73m??? Normal >=60 [facility] Comment on above: Order Comment: Speci men Type: BLOOD SPECIMENOrdering Facility: [facility] Address: [address] [place] [address] Result Comment: Mary mated Glomerular Filtration Rate [...] GFR. Performed By: #### B MP #### [place] [address] Glucose [Mass/Vol] 99 mg/dL Normal 74-99 [facility] Comment on above: Order Comment: Speci men Type: BLOOD SPECIMENOrdering Facility: [facility] Address: [address] [place] [address] Result Comment: The [place] Diabetes [employer] (ADA) provides guidance for cutoff [...] Standards of Medical Care in Diabetes 2016, [place] [employer]. Diabetes Care. 2016.39(Suppl 1). Performed By: #### B MP #### [place] [id number] [place] [address] Potassium [Moles/Vol] 3.7 mmol/L Normal 3.7-5.1 [facility] Comment on above: Order Comment: Speci men Type: BLOOD SPECIMENOrdering Facility: [facility] Address: [address] [place] [address] Performed By: #### B MP #### [place] [phone] Sodium [Moles/Vol] 141 mmol/L Normal 136-144 [facility] Comment on above: Order Comment: Speci men Type: BLOOD SPECIMENOrdering Facility: [facility] Address: [address] [place] [address] Performed By: #### B MP #### [place] [phone] Urea nitrogen [Mass/Vol] 4 mg/dL Low 7-21 [facility] Comment on above: Order Comment: Speci men Type: BLOOD SPECIMENOrdering Facility: [facility] Address: [address] [place] [address] Performed By: #### B MP #### [place] [phone] CBC panel Auto (Bld)on 04-01 Erythrocyte distribution width (RBC) [Ratio] 12.4 % Normal 11.5-15.0 [facility] Comment on above: Order Comment: Speci men Type: BLOOD SPECIMEN Ordering Facility: [facility] Address: [address] [place] [address] Performed By: #### 5 8410-2 #### [facility] CLIA [id number] [address] [place] [address] [place] Hematocrit (Bld) [Volume fraction] 29.3 % Low 36.0-46.0 [facility] Comment on above: Order Comment: Speci men Type: BLOOD SPECIMEN Ordering Facility: [facility] Address: [address] [place] [address] Performed By: #### 5 8410-2 #### [facility] CLIA [id number] [address] [place] [address] [place] Hemoglobin (Bld) [Mass/Vol] 9.6 g/dL Low 11.5-15.5 [facility] Comment on above: Order Comment: Speci men Type: BLOOD SPECIMEN Ordering Facility: [facility] Address: [address] [place] [address] Performed By: #### 5 8410-2 #### [facility] CLIA [id number] [address] [place] [address] MCH (RBC) [Entitic mass] 29.4 pg Normal 26.0-34.0 [facility] Comment on above: Order Comment: Speci men Type: BLOOD SPECIMEN Ordering Facility: [facility] Address: [address] [place] [address] Performed By: #### 5 8410-2 #### [facility] CLIA [id number] [address] [place] [address] STATES OF [facility] MCHC (RBC) [Mass/Vol] 32.8 g/dL Normal 30.5-36.0 [facility] Comment on above: Order Comment: Speci men Type: BLOOD SPECIMEN Ordering Facility: [facility] Address: [address] [place] [address] Performed By: #### 5 8410-2 #### [facility] CLIA [id number] [address] [place] [address] MCV (RBC) [Entitic vol] 89.9 fL Normal 80.0-100.0 [facility] Comment on above: Order Comment: Speci men Type: BLOOD SPECIMEN Ordering Facility: [facility] Address: [address] [place] [address] Performed By: #### 5 8410-2 #### [facility] CLIA [id number] [address] [place] [address] Nucleated RBC (Bld) [#/Vol] 10*3/uL Normal <0.01 [facility] Comment on above: Order Comment: Speci men Type: BLOOD SPECIMEN Ordering Facility: [facility] Address: [address] [place] [address] Performed By: #### 5 8410-2 #### [facility] CLIA [id number] [address] [place] [address] [place] Platelet mean volume (Bld) [Entitic vol] 8.9 fL Low 9.0-12.7 [facility] Comment on above: Order Comment: Speci men Type: BLOOD SPECIMEN Ordering Facility: [facility] Address: [address] [place] [address] Performed By: #### 5 8410-2 #### [facility] CLIA [id number] [address] [place] [address] [place] Platelets (Bld) [#/Vol] 282 10*3/uL Normal 150-400 [facility] Comment on above: Order Comment: Speci men Type: BLOOD SPECIMEN Ordering Facility: [facility] Address: [address] [place] [address] Performed By: #### 5 8410-2 #### [facility] CLIA [id number] [address] [place] [address] [place] RBC (Bld) [#/Vol] 3.26 10*6/uL Low 3.90-5.20 [facility] Comment on above: Order Comment: Speci men Type: BLOOD SPECIMEN Ordering Facility: [facility] Address: [address] [place] [address] Performed By: #### 5 8410-2 #### [facility] CLIA [id number] [address] [place] [address] [place] WBC (Bld) [#/Vol] 7.39 10*3/uL Normal 3.70-11.00 [facility] Comment on above: Order Comment: Speci men Type: BLOOD SPECIMEN Ordering Facility: [facility] Address: [address] [place] [address] Performed By: #### 5 8410-2 #### [facility] CLIA [id number] [address] [place] [address] [place] CONSULT PROGon 04-01-2022 CONSULT PROG HNO ID: [id number] Author: Joslyn Jain APRN.[employer] Service: Pain Management Author Type: Nurse Practitioner [...] 0.67 Sod (more content not included)... Normal [facility] Magnesium SerPl-mCncon 04-01 Magnesium [Mass/Vol] 1.7 mg/dL Normal 1.7-2.3 [facility] Comment on above: Order Comment: Speci men Type: BLOOD SPECIMENOrdering Facility: [facility] Address: [address] [place], [place] [address] Performed By: #### B MP #### [place] [address] NURSING PROGon 04-01-2022 NURSING PROG HNO ID: [id number] Author: Eagle Gu RN Service: ? Author Type: Registered Nurse Type: Nursing Progress Note Filed: 04/01/2022 9:56 PM Note Text: Nursing Progress Note Patient Name: Mary Leal Patient Location: [facility]/ Daily Note:04/01/222038 Pt is alert and oriented x3. Surgical sites intact. Tap blocks x2 intact. Made SROC aware of Pt experiencing sharp/stabbing pain in abdomen, rating 9/10. SROC recommended use of PRN Dilaudid This note was completed by: [facility] NURSING PROG HNO ID: [id number] Author: Eagle Gu, RN Service: ? Author Type: Registered Nurse Type: Nursing Progress Note Filed: 04/01/2022 1:52 AM Note Text: Nursing Progress Note Patient Name: Mary Leal Patient Location: [place] [address]/[address]-22 Daily Note:03/31/222030 Pt is alert and oriented x3. Surgical sites intact. Nerve blocks x2 intact. This note was completed by: [facility] Phosphate SerPl-mCncon 04-01 Phosphate [Mass/Vol] 2.8 mg/dL Normal 2.7-4.8 [facility] Comment on above: Order Comment: Speci men Type: BLOOD SPECIMENOrdering Facility: [facility] Address: [address] [place] [address] Performed By: #### B MP #### [place] [id number] Basic metabolic 2000 panelon 03-31-2022 Anion gap [Moles/Vol] 10 mmol/L Normal 9-18 [facility] Comment on above: Order Comment: Speci men Type: BLOOD SPECIMEN Ordering Facility: [facility] Address: [address] [place] [address] Performed By: #### 5 8410-2 #### [facility] CLIA [id number] [address] [place] [address] [place] Calcium [Mass/Vol] 8.4 mg/dL Low 8.5-10.2 [facility] Comment on above: Order Comment: Speci men Type: BLOOD SPECIMEN Ordering Facility: [facility] Address: [address] [place] [address] Performed By: #### 5 8410-2 #### [facility] CLIA [id number] [address] [place] [address] [place] Chloride [Moles/Vol] 107 mmol/L High 97-105 [facility] Comment on above: Order Comment: Speci men Type: BLOOD SPECIMEN Ordering Facility: [facility] Address: [address] [place] [address] Performed By: #### 5 8410-2 #### [facility] CLIA [id number] [address] [place] [address] [place] CO2 [Moles/Vol] 23 mmol/L Normal 22-30 [facility] Comment on above: Order Comment: Speci men Type: BLOOD SPECIMEN Ordering Facility: [facility] Address: [address] [place] [address] Performed By: #### 5 8410-2 #### [facility] CLIA [id number] [address] [place] [address] [place] Creatinine [Mass/Vol] 0.67 mg/dL Normal 0.58-0.96 [facility] Comment on above: Order Comment: Speci men Type: BLOOD SPECIMEN Ordering Facility: [facility] Address: [address] [place] [address] Performed By: #### 5 8410-2 #### [facility] CLIA [id number] [address] [place] [address] OF [place] ESTIMATED GLOMERULAR FILTRATION RATE 107 mL/min/1.73m??? Normal >=60 [facility] Comment on above: Order Comment: Speci men Type: BLOOD SPECIMEN Ordering Facility: [facility] Address: [address] [place] [address] Result Comment: Mary mated Glomerular Filtration Rate [...] GFR. Performed By: #### 5 8410-2 #### [facility] CLIA [id number] [place] [address] [place] Glucose [Mass/Vol] 84 mg/dL Normal 74-99 [facility] Comment on above: Order Comment: Leanne terry Type: BLOOD SPECIMEN Ordering Facility: [facility] Address: [address] [place] [address] Result Comment: The [place] Diabetes Association (ADA) provides guidance for cutoff [...] Standards of Medical Care in Diabetes 2016, [place] [employer]. Diabetes Care. 2016.39(Suppl 1). Performed By: #### 5 8410-2 #### [facility] CLIA [id number] [place] [address] [place] Potassium [Moles/Vol] 3.8 mmol/L Normal 3.7-5.1 [facility] Comment on above: Order Comment: Leanne terry Type: BLOOD SPECIMEN Ordering Facility: [facility] Address: [address] [place] [address] Performed By: #### 5 8410-2 #### [facility] CLIA [id number] [address] [place] [address] [place] Sodium [Moles/Vol] 140 mmol/L Normal 136-144 [facility] Comment on above: Order Comment: Speci men Type: BLOOD SPECIMEN Ordering Facility: [facility] Address: [address] [place] [address] Performed By: #### 5 8410-2 #### [facility] CLIA [id number] [address] [place] [address] [place] Urea nitrogen [Mass/Vol] 11 mg/dL Normal 7-21 [facility] Comment on above: Order Comment: Speci men Type: BLOOD SPECIMEN Ordering Facility: [facility] Address: [address] [place] [address] Performed By: #### 5 8410-2 #### [facility] CLIA [id number] [address] [place] [address] [place] CBC W Auto Differential pane l (Bld)on 03-31-2022 Basophils (Bld) [#/Vol] 0.03 10*3/uL Normal <0.11 [facility] Comment on above: Order Comment: Speci men Type: BLOOD SPECIMEN Ordering Facility: [facility] Address: [address] [place] [address] Performed By: #### 5 7021-8 #### [facility] CLIA [id number] [address] [place] [address] Basophils/100 WBC (Bld) 0.4 % Normal [facility] Comment on above: Order Comment: Speci men Type: BLOOD SPECIMEN Ordering Facility: [facility] Address: [address] [place] [address] Performed By: #### 5 7021-8 #### [facility] CLIA [id number] [address] [place] [address] [place] Differential cell count method Nom (Bld) Auto Normal [facility] Comment on above: Order Comment: Speci men Type: BLOOD SPECIMEN Ordering Facility: [facility] Address: [address] [place] [address] Performed By: #### 5 7021-8 #### [facility] CLIA [id number] [place] Eosinophils (Bld) [#/Vol] 0.38 10*3/uL Normal <0.46 [facility] Comment on above: Order Comment: Speci men Type: BLOOD SPECIMEN Ordering Facility: [facility] Address: [address] [place] [address] Performed By: #### 5 7021-8 #### [facility] CLIA [id number] [address] [place] [address] [place] Eosinophils/100 WBC (Bld) 4.4 % Normal [facility] Comment on above: Order Comment: Speci men Type: BLOOD SPECIMEN Ordering Facility: [facility] Address: [address] [place] [address] Performed By: #### 5 7021-8 #### [facility] CLIA [id number] [address] [place] [address] [place] Erythrocyte distribution width (RBC) [Ratio] 12.6 % Normal 11.5-15.0 [facility] Comment on above: Order Comment: Speci men Type: BLOOD SPECIMEN Ordering Facility: [facility] Address: [address] [place] [address] Performed By: #### 5 7021-8 #### [facility] CLIA [id number] [address] [place] [address] [place] Hematocrit (Bld) [Volume fraction] 30.0 % Low 36.0-46.0 [facility] Comment on above: Order Comment: Speci men Type: BLOOD SPECIMEN Ordering Facility: [facility] Address: [address] [place] [address] Performed By: #### 5 7021-8 #### [facility] CLIA [id number] [address] [place] [address] [place] Hemoglobin (Bld) [Mass/Vol] 9.9 g/dL Low 11.5-15.5 [facility] Comment on above: Order Comment: Speci men Type: BLOOD SPECIMEN Ordering Facility: [facility] Address: [address] [place] [address] Performed By: #### 5 7021-8 #### [facility] CLIA [id number] [address] [place] [address] IMMATURE GRAN % 0.4 % Normal [facility] Comment on above: Order Comment: Speci men Type: BLOOD SPECIMEN Ordering Facility: [facility] Address: [address] [place] [address] Performed By: #### 5 7021-8 #### [facility] CLIA [id number] [address] [place] [address] [place] IMMATURE GRAN ABS 0.03 k/uL Normal <0.10 [facility] Comment on above: Order Comment: Speci men Type: BLOOD SPECIMEN Ordering Facility: [facility] Address: [address] [place] [address] Performed By: #### 5 7021-8 #### [facility] CLIA [id number] [address] [place] [address] [place] Lymphocytes (Bld) [#/Vol] 1.24 10*3/uL Normal 1.00-4.00 [facility] Comment on above: Order Comment: Speci men Type: BLOOD SPECIMEN Ordering Facility: [facility] Address: [address] [place] [address] Performed By: #### 5 7021-8 #### [facility] CLIA [id number] [address] [place] [address] Lymphocytes/100 WBC (Bld) 14.5 % Normal [facility] Comment on above: Order Comment: Speci men Type: BLOOD SPECIMEN Ordering Facility: [facility] Address: [address] [place] [address] Performed By: #### 5 7021-8 #### [facility] CLIA [id number] [address] [place] [address] [place] MCH (RBC) [Entitic mass] 29.6 pg Normal 26.0-34.0 [facility] Comment on above: Order Comment: Speci men Type: BLOOD SPECIMEN Ordering Facility: [facility] Address: [address] [place] [address] Performed By: #### 5 7021-8 #### [facility] CLIA [id number] [address] [place] [address] [place] MCHC (RBC) [Mass/Vol] 33.0 g/dL Normal 30.5-36.0 [facility] Comment on above: Order Comment: Speci men Type: BLOOD SPECIMEN Ordering Facility: [facility] Address: [address] [place] [address] Performed By: #### 5 7021-8 #### [facility] CLIA [id number] [address] [place] [address] [place] MCV (RBC) [Entitic vol] 89.8 fL Normal 80.0-100.0 [facility] Comment on above: Order Comment: Speci men Type: BLOOD SPECIMEN Ordering Facility: [facility] Address: [address] [place] [address] Performed By: #### 5 7021-8 #### [facility] CLIA [id number] [address] [place] [address] [place] Monocytes (Bld) [#/Vol] 0.48 10*3/uL Normal <0.87 [facility] Comment on above: Order Comment: Speci men Type: BLOOD SPECIMEN Ordering Facility: [facility] Address: [address] [place] [address] Performed By: #### 5 7021-8 #### [facility] CLIA [id number] [address] [place] [address] [place] Monocytes/100 WBC (Bld) 5.6 % Normal [facility] Comment on above: Order Comment: Speci men Type: BLOOD SPECIMEN Ordering Facility: [facility] Address: [address] [place] [address] Performed By: #### 5 7021-8 #### [facility] CLIA [id number] [address] [place] [address] [place] Neutrophils (Bld) [#/Vol] 6.41 10*3/uL Normal 1.45-7.50 [facility] Comment on above: Order Comment: Speci men Type: BLOOD SPECIMEN Ordering Facility: [facility] Address: [address] [place] [address] Performed By: #### 5 7021-8 #### [facility] CLIA [id number] [address] [place] [address] [place] Neutrophils/100 WBC (Bld) 74.7 % Normal [facility] Comment on above: Order Comment: Speci men Type: BLOOD SPECIMEN Ordering Facility: [facility] Address: [address] [place] [address] Performed By: #### 5 7021-8 #### [facility] CLIA [id number] [address] [place] [address] [place] Nucleated RBC (Bld) [#/Vol] 10*3/uL Normal <0.01 [facility] Comment on above: Order Comment: Speci men Type: BLOOD SPECIMEN Ordering Facility: [facility] Address: [address] [place] [address] Performed By: #### 5 7021-8 #### [facility] CLIA [id number] [address] [place] [address] [place] Nucleated RBC/100 WBC (Bld) [Ratio] 0.0 /100 WBC Normal [facility] Comment on above: Order Comment: Speci men Type: BLOOD SPECIMEN Ordering Facility: [facility] Address: [address] [place] [address] Performed By: #### 5 7021-8 #### [facility] CLIA [id number] [address] [place] [address] [place] Platelet mean volume (Bld) [Entitic vol] 9.0 fL Normal 9.0-12.7 [facility] Comment on above: Order Comment: Speci men Type: BLOOD SPECIMEN Ordering Facility: [facility] Address: [address] [place] [address] Performed By: #### 5 7021-8 #### [facility] CLIA [id number] [address] [place] [address] [place] Platelets (Bld) [#/Vol] 246 10*3/uL Normal 150-400 [facility] Comment on above: Order Comment: Speci men Type: BLOOD SPECIMEN Ordering Facility: [facility] Address: [address] [place] [address] Performed By: #### 5 7021-8 #### [facility] CLIA [id number] [place] [address] [place] RBC (Bld) [#/Vol] 3.34 10*6/uL Low 3.90-5.20 [facility] Comment on above: Order Comment: Speci men Type: BLOOD SPECIMEN Ordering Facility: [facility] Address: [address] [place] [address] Performed By: #### 5 7021-8 #### [facility] CLIA [id number] [address] [place] [address] OF [facility] WBC (Bld) [#/Vol] 8.57 10*3/uL Normal 3.70-11.00 [facility] Comment on above: Order Comment: Speci men Type: BLOOD SPECIMEN Ordering Facility: [facility] Address: [address] [place] [address] Performed By: #### 5 7021-8 #### [facility] CLIA [id number] [address] [place] [address] CONSULT PROGon 03-31-2022 CONSULT PROG HNO ID: [id number] Author: Joslyn Jain APRN.[employer] Service: Pain Management Author Type: Nurse Practitioner [...] PLAN/Recs: 1. Continue TAPS X 2 to 0//2 each, will likely remove it on Monday [...] and solution: Yes. Solution Ropivacaine 0.2%, rate 0/2 ml/hr. Adjuvant Pain Medication: See below. Current [...] AND U (more content not included)... Normal [facility] Magnesium SerPl-mCncon 03-31 Magnesium [Mass/Vol] 1.6 mg/dL Low 1.7-2.3 [facility] Comment on above: Order Comment: Speci men Type: BLOOD SPECIMEN Ordering Facility: [facility] Address: [address] [place] [address] Performed By: #### 5 8410-2 #### [facility] CLIA [id number] [address] [place] [address] NURSING PROGon 03-31-2022 NURSING PROG HNO ID: [id number] Author: Daisy Amaya RN Service: Nursing Author Type: Registered Nurse Type: Nursing Progress Note Filed: 03/31/2022 4:56 PM Note Text: Nursing Progress Note Patient Name: Mary Leal Patient Location: [place] [address]/OE3U-96 Daily Note: 31- Pt A+Ox3. Up with standby assist. Ambulated pod multiple times. Laps intact. Old ostomy site WNL. Pt having liquid brown BMs. Voiding adq. No nausea, cp, or sob. Taps infusing per JAN. Pain controlled with PRN oxy. No further needs at this time. This note was completed by: Daisy Amaya [facility] NURSING PROG HNO ID: [id number] Author: Mariluz Carnes RN Service: Nursing Author Type: Registered Nurse Type: Nursing Progress Note Filed: 03/30/2022 11:47 PM Note Text: Nursing Progress Note Patient Name: Mary Leal Patient Location: [address]/EY9Z-69 Daily Note: Pt's BP 90/52. Patient asymptomatic. Surgery made aware. Order in for Bolus LR 500CC's. This note was completed by: Mariluz Carnes [facility] Phosphate SerPl-mCncon 03-31 Phosphate [Mass/Vol] 2.7 mg/dL Normal 2.7-4.8 [facility] Comment on above: Order Comment: Speci men Type: BLOOD SPECIMEN Ordering Facility: [facility] Address: [address] [place] [address] Performed By: #### 5 8410-2 #### [facility] CLIA [id number] [address] [place] [address] [place] Basic metabolic 2000 panelon 03-30-2022 Anion gap [Moles/Vol] 10 mmol/L Normal 9-18 [facility] Comment on above: Order Comment: Speci men Type: BLOOD SPECIMEN Ordering Facility: [facility] Address: [address] [place] [address] Performed By: #### 1 9123-9, 2777-1, 63570-7 #### [facility] CLIA [id number] [address] [place] [address] [place] Calcium [Mass/Vol] 8.5 mg/dL Normal 8.5-10.2 [facility] Comment on above: Order Comment: Speci men Type: BLOOD SPECIMEN Ordering Facility: [facility] Address: [address] [place] [address] Performed By: #### 1 9123-9, 2777-1, 41523-9 #### [facility] CLIA [id number] [address] [place] [address] [place] Chloride [Moles/Vol] 103 mmol/L Normal 97-105 [facility] Comment on above: Order Comment: Speci men Type: BLOOD SPECIMEN Ordering Facility: [facility] Address: [address] [place] [address] Performed By: #### 1 9123-9, 2777-, 36963-8 #### [facility] CLIA [id number] [address] [place] [address] [place] CO2 [Moles/Vol] 24 mmol/L Normal 22-30 [facility] Comment on above: Order Comment: Speci men Type: BLOOD SPECIMEN Ordering Facility: [facility] Address: [address] [place] [address] Performed By: #### 1 9123-9, 2777, 56561-4 #### [facility] CLIA [id number] [address] [place] [address] [place] Creatinine [Mass/Vol] 0.69 mg/dL Normal 0.58-0.96 [facility] Comment on above: Order Comment: Speci men Type: BLOOD SPECIMEN Ordering Facility: [facility] Address: [address] [place] [address] Performed By: #### 1 9123-9, 2777, 75278-8 #### [facility] CLIA [id number] [address] [place] [address] [place] ESTIMATED GLOMERULAR FILTRATION RATE 107 mL/min/1.73m??? Normal >=60 [facility] Comment on above: Order Comment: Speci men Type: BLOOD SPECIMEN Ordering Facility: [facility] Address: [address] [place] [address] Result Comment: Mary mated Glomerular Filtration Rate [...] actual GFR. Performed By: #### 1 9123-9, 2777-, 43057-7 #### [facility] CLIA [id number] [address] [place] [address] [place] Glucose [Mass/Vol] 117 mg/dL High 74-99 [facility] Comment on above: Order Comment: Leanne terry Type: BLOOD SPECIMEN Ordering Facility: [facility] Address: [address] [place], [place] [address] Result Comment: The [place] [employer] (ADA) provides guidance for cutoff [...] Standards of Medical Care in Diabetes 2016, [place] [employer]. Diabetes Care. 2016.39(Suppl 1). Performed By: #### 1 9123-9, 2777, 44564-8 #### [facility] [facility] CLIA [id number] [place] [address] [place] Potassium [Moles/Vol] 3.9 mmol/L Normal 3.7-5.1 [facility] Comment on above: Order Comment: Leanne terry Type: BLOOD SPECIMEN Ordering Facility: [facility] Address: [address] [place] [address] Performed By: #### 1 9123-9, 2777-, 69827-3 #### [facility] CLIA [id number] [address] [place] [address] [place] Sodium [Moles/Vol] 137 mmol/L Normal 136-144 [facility] Comment on above: Order Comment: Speci men Type: BLOOD SPECIMEN Ordering Facility: [facility] Address: [address] [place] [address] Performed By: #### 1 9123-9, 2777-1, 90136-1 #### [facility] CLIA [id number] [address] [place] [address] [place] Urea nitrogen [Mass/Vol] 13 mg/dL Normal 7-21 [facility] Comment on above: Order Comment: Speci men Type: BLOOD SPECIMEN Ordering Facility: [facility] Address: [address] [place] [address] Performed By: #### 1 9123-9, 2777, 71917-2 #### [facility] CLIA [id number] [address] [place] [address] [place] CBC panel Auto (Bld)on 03-30 Erythrocyte distribution width (RBC) [Ratio] 12.8 % Normal 11.5-15.0 [facility] Comment on above: Order Comment: Speci men Type: BLOOD SPECIMEN Ordering Facility: [facility] Address: [address] [place] [address] Performed By: #### 5 8410-2 #### [facility] CLIA [id number] [address] [place] [address] [place] Hematocrit (Bld) [Volume fraction] 35.0 % Low 36.0-46.0 [facility] Comment on above: Order Comment: Speci men Type: BLOOD SPECIMEN Ordering Facility: [facility] Address: [address] [place] [address] Performed By: #### 5 8410-2 #### [facility] CLIA [id number] [address] [place] [address] [place] Hemoglobin (Bld) [Mass/Vol] 11.8 g/dL Normal 11.5-15.5 [facility] Comment on above: Order Comment: Speci men Type: BLOOD SPECIMEN Ordering Facility: [facility] Address: [address] [place] [address] Performed By: #### 5 8410-2 #### [facility] CLIA [id number] [address] [place] [address] STATES [facility] MCH (RBC) [Entitic mass] 30.6 pg Normal 26.0-34.0 [facility] Comment on above: Order Comment: Speci men Type: BLOOD SPECIMEN Ordering Facility: [facility] Address: [address] [place] [address] Performed By: #### 5 8410-2 #### [facility] CLIA [id number] [address] [place] [address] [place] MCHC (RBC) [Mass/Vol] 33.7 g/dL Normal 30.5-36.0 [facility] Comment on above: Order Comment: Speci men Type: BLOOD SPECIMEN Ordering Facility: [facility] Address: [address] [place] [address] Performed By: #### 5 8410-2 #### [facility] CLIA [id number] [address] [place] [address] [place] MCV (RBC) [Entitic vol] 90.7 fL Normal 80.0-100.0 [facility] Comment on above: Order Comment: Speci men Type: BLOOD SPECIMEN Ordering Facility: [facility] Address: [address] [place] [address] Performed By: #### 5 8410-2 #### [facility] CLIA [id number] [address] [place] [address] [place] Nucleated RBC (Bld) [#/Vol] 10*3/uL Normal <0.01 [facility] Comment on above: Order Comment: Speci men Type: BLOOD SPECIMEN Ordering Facility: [facility] Address: [address] [place] [address] Performed By: #### 5 8410-2 #### [facility] CLIA [id number] [address] [place] [address] [place] Platelet mean volume (Bld) [Entitic vol] 8.9 fL Low 9.0-12.7 [facility] Comment on above: Order Comment: Speci men Type: BLOOD SPECIMEN Ordering Facility: [facility] Address: [address] [place] [address] Performed By: #### 5 8410-2 #### [facility] CLIA [id number] [address] [place] [address] [place] Platelets (Bld) [#/Vol] 293 10*3/uL Normal 150-400 [facility] Comment on above: Order Comment: Speci men Type: BLOOD SPECIMEN Ordering Facility: [facility] Address: [address] [place] [address] Performed By: #### 5 8410-2 #### [facility] CLIA [id number] [address] [place] [address] [place] RBC (Bld) [#/Vol] 3.86 10*6/uL Low 3.90-5.20 [facility] Comment on above: Order Comment: Speci men Type: BLOOD SPECIMEN Ordering Facility: [facility] Address: [address] [place] [address] Performed By: #### 5 8410-2 #### [facility] CLIA [id number] [address] [place] [address] [place] WBC (Bld) [#/Vol] 11.25 10*3/uL High 3.70-11.00 [facility] Comment on above: Order Comment: Speci men Type: BLOOD SPECIMEN Ordering Facility: [facility] Address: [address] [place] [address] Performed By: #### 5 8410-2 #### [facility] CLIA [id number] [address] [place] [address] [place] CONSULT PROGon 03-30-2022 CONSULT PROG HNO ID: [id number] Author: Joslyn Jain APRN.[employer] Service: Pain Management Author Type: Nurse Practitioner [...] N/V PLAN/Recs: 1. ContinueTAPS X 2 to 0//30/2 each, likely will remove blocks tomorrow 2. [...] eGFR >= (more content not included)... Normal [facility] Magnesium SerPl-mCncon 03-30 Magnesium [Mass/Vol] 1.6 mg/dL Low 1.7-2.3 [facility] Comment on above: Order Comment: Speci men Type: BLOOD SPECIMEN Ordering Facility: [facility] Address: [address] [place] [address] Performed By: #### 1 9123-9, 2777-1, 25528-7 #### [facility] CLIA [id number] [address] [place] [address] [place] Phosphate SerPl-mCncon 03-30 Phosphate [Mass/Vol] 2.9 mg/dL Normal 2.7-4.8 [facility] Comment on above: Order Comment: Speci men Type: BLOOD SPECIMEN Ordering Facility: [facility] Address: [address] [place] [address] Performed By: #### 1 9123-9, 2777-1, 10292-3 #### [facility] CLIA [id number] [address] [place] [address] [place] ANES POSTPROC EVALon 022 ANES POSTPROC EVAL HNO ID: [id number] Author: Nathanael Craig DO Service: Anesthesiology Author Type: Anesthesiologist Type: Anesthesia Postprocedure Evaluation Filed: 03/29/2022 8:29 AM Note Text: POST ANESTHESIA EVALUATION NOTE : 1970 Procedure Summary Date: 03/28/22 Room / Location: OR12 / FV OR Anesthesia Start: 907 Anesthesia Stop: 163 Procedures: LAPAROSCOPIC TOTAL COLECTOMY LITHOTOMY (N/A Abdomen) [...] of care. Anesthesia Observations No Documentation SIGNATURE: Nathaanel Craig DO PATIENT NAME: Mary Leal DATE: March 29, 2022 TIME: 8:29 AM CSN: [id number] Normal [facility] Basic metabolic 2000 panelon 03-29-2022 Anion gap [Moles/Vol] 9 mmol/L Normal 9-18 [facility] Comment on above: Order Comment: Speci men Type: BLOOD SPECIMEN Ordering Facility: [facility] Address: [address] [place] [address] Performed By: #### 5 8410-2 #### [facility] CLIA [id number] [address] [place] [address] [place] Calcium [Mass/Vol] 7.9 mg/dL Low 8.5-10.2 [facility] Comment on above: Order Comment: Speci men Type: BLOOD SPECIMEN Ordering Facility: [facility] Address: [address] [place] [address] Performed By: #### 5 8410-2 #### [facility] CLIA [id number] [address] [place] [address] [place] Chloride [Moles/Vol] 105 mmol/L Normal 97-105 [facility] Comment on above: Order Comment: Speci men Type: BLOOD SPECIMEN Ordering Facility: [facility] Address: [address] [place] [address] Performed By: #### 5 8410-2 #### [facility] CLIA [id number] [address] [place] [address] [place] CO2 [Moles/Vol] 24 mmol/L Normal 22-30 [facility] Comment on above: Order Comment: Speci men Type: BLOOD SPECIMEN Ordering Facility: [facility] Address: [address] [place] [address] Performed By: #### 5 8410-2 #### [facility] CLIA [id number] [address] [place] [address] [place] Creatinine [Mass/Vol] 0.70 mg/dL Normal 0.58-0.96 [facility] Comment on above: Order Comment: Speci men Type: BLOOD SPECIMEN Ordering Facility: [facility] Address: [address] [place] [address] Performed By: #### 5 8410-2 #### [facility] CLIA [id number] [address] [place] [address] [place] ESTIMATED GLOMERULAR FILTRATION RATE 106 mL/min/1.73m??? Normal >=60 [facility] Comment on above: Order Comment: Speci men Type: BLOOD SPECIMEN Ordering Facility: [facility] Address: [address] [place] [address] Result Comment: Mary mated Glomerular Filtration Rate [...] GFR. Performed By: #### 5 8410-2 #### [facility] CLIA [id number] [address] [place] [address] [place] Glucose [Mass/Vol] 92 mg/dL Normal 74-99 [facility] Comment on above: Order Comment: Leanne terry Type: BLOOD SPECIMEN Ordering Facility: [facility] Address: [address] [place], [place] [address] Result Comment: The [place] Diabetes Association (ADA) provides guidance for cutoff [...] Standards of Medical Care in Diabetes 2016, [place] [employer] Association. Diabetes Care. 2016.39(Suppl 1). Performed By: #### 5 8410-2 #### [facility] CLIA [id number] [address] [place] [address] [place] Potassium [Moles/Vol] 4.1 mmol/L Normal 3.7-5.1 [facility] Comment on above: Order Comment: Leanne terry Type: BLOOD SPECIMEN Ordering Facility: [facility] Address: [address] [place] [phone] Performed By: #### 5 8410-2 #### [facility] CLIA [id number] [address] [place] [address] [place] Sodium [Moles/Vol] 138 mmol/L Normal 136-144 [facility] Comment on above: Order Comment: Leanne terry Type: BLOOD SPECIMEN Ordering Facility: [facility] Address: [address] [place] [address] Performed By: #### 5 8410-2 #### [facility] CLIA [id number] [address] [place] [address] [place] Urea nitrogen [Mass/Vol] 12 mg/dL Normal 7- [facility] Comment on above: Order Comment: Speci men Type: BLOOD SPECIMEN Ordering Facility: [facility] Address: [address] [place] [address] Performed By: #### 5 8410-2 #### [facility] CLIA [id number] [address] [place] [address] [place] CBC W Auto Differential pane l (Bld)on 03-29-2022 Basophils (Bld) [#/Vol] 0.04 10*3/uL Normal <0.11 [facility] Comment on above: Order Comment: Speci men Type: BLOOD SPECIMEN Ordering Facility: [facility] Address: [address] [place] [address] Performed By: #### 5 7021-8 #### [facility] CLIA [id number] [address] [place] [address] [place] Basophils/100 WBC (Bld) 0.6 % Normal [facility] Comment on above: Order Comment: Speci men Type: BLOOD SPECIMEN Ordering Facility: [facility] Address: [address] [place] [address] Performed By: #### 5 7021-8 #### [facility] CLIA [id number] [address] [place] [address] STATES [facility] Differential cell count method Nom (Bld) Auto Normal [facility] Comment on above: Order Comment: Speci men Type: BLOOD SPECIMEN Ordering Facility: [facility] Address: [address] [place] [address] Performed By: #### 5 7021-8 #### [facility] CLIA [id number] [address] [place] [address] [place] Eosinophils (Bld) [#/Vol] 0.16 10*3/uL Normal <0.46 [facility] Comment on above: Order Comment: Speci men Type: BLOOD SPECIMEN Ordering Facility: [facility] Address: [address] [place] [address] Performed By: #### 5 7021-8 #### [facility] CLIA [id number] [address] [place] [address] [place] Eosinophils/100 WBC (Bld) 2.3 % Normal [facility] Comment on above: Order Comment: Speci men Type: BLOOD SPECIMEN Ordering Facility: [facility] Address: [address] [place] [address] Performed By: #### 5 7021-8 #### [facility] CLIA [id number] [address] [place] [address] [place] Erythrocyte distribution width (RBC) [Ratio] 12.8 % Normal 11.5-15.0 [facility] Comment on above: Order Comment: Speci men Type: BLOOD SPECIMEN Ordering Facility: [facility] Address: [address] [place] [address] Performed By: #### 5 7021-8 #### [facility] CLIA [id number] [address] [place] [address] [place] Hematocrit (Bld) [Volume fraction] 32.3 % Low 36.0-46.0 [facility] Comment on above: Order Comment: Speci men Type: BLOOD SPECIMEN Ordering Facility: [facility] Address: [address] [place] [address] Performed By: #### 5 7021-8 #### [facility] CLIA [id number] [address] [place] [address] [place] Hemoglobin (Bld) [Mass/Vol] 10.7 g/dL Low 11.5-15.5 [facility] Comment on above: Order Comment: Speci men Type: BLOOD SPECIMEN Ordering Facility: [facility] Address: [address] [place] [address] Performed By: #### 5 7021-8 #### [facility] CLIA [id number] [address] [place] [address] [place] IMMATURE GRAN % 0.3 % Normal [facility] Comment on above: Order Comment: Speci men Type: BLOOD SPECIMEN Ordering Facility: [facility] Address: [address] [place] [address] Performed By: #### 5 7021-8 #### [facility] CLIA [id number] [address] [place] [address] [place] IMMATURE GRAN ABS <0.03 Normal <0.10 [facility] Comment on above: Order Comment: Speci men Type: BLOOD SPECIMEN Ordering Facility: [facility] Address: [address] [place] [address] Performed By: #### 5 7021-8 #### [facility] CLIA [id number] [address] [place] [address] [place] Lymphocytes (Bld) [#/Vol] 1.39 10*3/uL Normal 1.00-4.00 [facility] Comment on above: Order Comment: Speci men Type: BLOOD SPECIMEN Ordering Facility: [facility] Address: [address] [place] [address] Performed By: #### 5 7021-8 #### [facility] CLIA [id number] [address] [place] [address] Lymphocytes/100 WBC (Bld) 19.7 % Normal [facility] Comment on above: Order Comment: Speci men Type: BLOOD SPECIMEN Ordering Facility: [facility] Address: [address] [place] [address] Performed By: #### 5 7021-8 #### [facility] CLIA [id number] [address] [place] [address] [place] MCH (RBC) [Entitic mass] 29.8 pg Normal 26.0-34.0 [facility] Comment on above: Order Comment: Speci men Type: BLOOD SPECIMEN Ordering Facility: [facility] Address: [address] [place] [address] Performed By: #### 5 7021-8 #### [facility] CLIA [id number] [address] [place] [address] [place] MCHC (RBC) [Mass/Vol] 33.1 g/dL Normal 30.5-36.0 [facility] Comment on above: Order Comment: Speci men Type: BLOOD SPECIMEN Ordering Facility: [facility] Address: [address] [place] [address] Performed By: #### 5 7021-8 #### [facility] CLIA [id number] [address] [place] [address] [place] MCV (RBC) [Entitic vol] 90.0 fL Normal 80.0-100.0 [facility] Comment on above: Order Comment: Speci men Type: BLOOD SPECIMEN Ordering Facility: [facility] Address: [address] [place] [address] Performed By: #### 5 7021-8 #### [facility] CLIA [id number] [address] [place] [address] [place] Monocytes (Bld) [#/Vol] 0.55 10*3/uL Normal <0.87 [facility] Comment on above: Order Comment: Speci men Type: BLOOD SPECIMEN Ordering Facility: [facility] Address: [address] [place] [address] Performed By: #### 5 7021-8 #### [facility] CLIA [id number] [address] [place] [address] [place] Monocytes/100 WBC (Bld) 7.8 % Normal [facility] Comment on above: Order Comment: Speci men Type: BLOOD SPECIMEN Ordering Facility: [facility] Address: [address] [place] [address] Performed By: #### 5 7021-8 #### [facility] CLIA [id number] [address] [place] [address] [place] Neutrophils (Bld) [#/Vol] 4.88 10*3/uL Normal 1.45-7.50 [facility] Comment on above: Order Comment: Speci men Type: BLOOD SPECIMEN Ordering Facility: [facility] Address: [address] [place] [address] Performed By: #### 5 7021-8 #### [facility] CLIA [id number] [address] [place] [address] [place] Neutrophils/100 WBC (Bld) 69.3 % Normal [facility] Comment on above: Order Comment: Speci men Type: BLOOD SPECIMEN Ordering Facility: [facility] Address: [address] [place] [address] Performed By: #### 5 7021-8 #### [facility] CLIA [id number] [address] [place] [address] [place] Nucleated RBC (Bld) [#/Vol] 10*3/uL Normal <0.01 [facility] Comment on above: Order Comment: Speci men Type: BLOOD SPECIMEN Ordering Facility: [facility] Address: [address] [place] [address] Performed By: #### 5 7021-8 #### [facility] CLIA [id number] [address] [place] [address] [place] Nucleated RBC/100 WBC (Bld) [Ratio] 0.0 /100 WBC Normal [facility] Comment on above: Order Comment: Speci men Type: BLOOD SPECIMEN Ordering Facility: [facility] Address: [address] [place] [address] Performed By: #### 5 7021-8 #### [facility] CLIA [id number] [address] [place] [address] [place] Platelet mean volume (Bld) [Entitic vol] 9.0 fL Normal 9.0-12.7 [facility] Comment on above: Order Comment: Speci men Type: BLOOD SPECIMEN Ordering Facility: [facility] Address: [address] [place] [address] Performed By: #### 5 7021-8 #### [facility] CLIA [id number] [address] [place] [address] [place] Platelets (Bld) [#/Vol] 241 10*3/uL Normal 150-400 [facility] Comment on above: Order Comment: Speci men Type: BLOOD SPECIMEN Ordering Facility: [facility] Address: [address] [place] [address] Performed By: #### 5 7021-8 #### [facility] CLIA [id number] [address] [place] [address] [place] RBC (Bld) [#/Vol] 3.59 10*6/uL Low 3.90-5.20 [facility] Comment on above: Order Comment: Speci men Type: BLOOD SPECIMEN Ordering Facility: [facility] Address: [address] [place] [address] Performed By: #### 5 7021-8 #### [facility] CLIA [id number] [place] [address] [place] WBC (Bld) [#/Vol] 7.04 10*3/uL Normal 3.70-11.00 [facility] Comment on above: Order Comment: Speci men Type: BLOOD SPECIMEN Ordering Facility: [facility] Address: [address] [place] [address] Performed By: #### 5 7021-8 #### [facility] CLIA [id number] [address] [place] [address] CONSULT PROGon 03-29-2022 CONSULT PROG HNO ID: [id number] Author: Joslyn Jain APRN.[employer] Service: Pain Management Author Type: Nurse Practitioner [...] is on liq diet, currently on Dilaudid PASSEMENTERIE WORKER at 0/0.2/10/6 last 2 hours 06/27 bolus [...] No Relieved: Yes - NOW with increase PASSEMENTERIE WORKER and Repositioning and PASSEMENTERIE WORKER Is patient satisfied with pain control: Yes [...] mL PERIPHERAL NERVE CATHETER CONTINUOUS - HYDROmorphone PASSEMENTERIE WORKER 0.5 mg/mL in NaCl 0.9% 100 mL [...] % 69.3 (more content not included)... Normal [facility] Magnesium SerPl-mCncon 03-29 Magnesium [Mass/Vol] 1.4 mg/dL Low 1.7-2.3 [facility] Comment on above: Order Comment: Speci men Type: BLOOD SPECIMEN Ordering Facility: [facility] Address: [address] [place] [address] Performed By: #### 5 8410-2 #### [facility] CLIA [id number] [place] [address] NURSING PROGon 03-29-2022 NURSING PROG HNO ID: [id number] Author: Juan Crowley, MAKI Service: Nursing Author Type: Registered Nurse Type: Nursing Progress Note Filed: 03/29/2022 2:00 PM Note Text: Nursing Progress Note Patient Name: Mary Leal Patient Location: [place] [address] Daily Note: Patient VSS. RA POx. Pain level better controlled now that PASSEMENTERIE WORKER initiated. B/L Ropivacaine Tap Blocks with dressings [...] This note was completed by: Juan Crowley [facility] NURSING PROG HNO ID: [id number] Author: Kev Leone RN Service: ? Author Type: Registered Nurse Type: Nursing Progress Note Filed: 03/29/2022 3:53 AM Note Text: Nursing Progress Note Patient Name: Mary Leal Patient Location: [address]-02 Daily Note: 0350: Pt states she is in 10/10 pain, pt has no PO pain meds ordered, page sent to surgery resident This note was completed by: Kev Leone [facility] PT EDon 03-29-2022 PT ED HNO ID: [id number] Author: Merced Morales DTR Service: Nutrition Therapy Author Type: Business And Marketing Teacher Type: Patient Education Filed: 03/29/2022 11:05 AM [...] March 29, 2022 TIME: 11:04 AM PAGER: [facility] Phosphate SerPl-mCncon 03-29 Phosphate [Mass/Vol] 2.9 mg/dL Normal 2.7-4.8 [facility] Comment on above: Order Comment: Speci men Type: BLOOD SPECIMEN Ordering Facility: [facility] Address: [address] [place] [address] Performed By: #### 5 8410-2 #### [facility] CLIA [id number] [address] [place] [address] [place] ANES PRE-OPon 03-28-2022 ANES PRE-OP HNO ID: [id number] Author: Anibal Bertrand MD Service: Anesthesiology Author [...] and consent discussed: yes. Patient / Responsible [employer] agrees to proceed: yes Patient / [...] LUNGS every 4 hours if needed - wetzonmymkm-hynobnokr-mbw anter (TRELEGY ELLIPTA) 100-62.5-25 mcg Inhale 1 Puff [...] (FLONASE) 50 mcg/actuation nasal spray Use 1 [place] in each nostril on (more content not included)... [facility] BRIEF OP NOTon 03-28-2022 BRIEF OP NOT HNO ID: [id number] Author: Nita Lamas MD Service: Colorectal Author Type: Fellow Type: Brief Op Note Filed: 03/28/2022 3:43 PM Note Text: BRIEF OPERATIVE NOTE - COLORECTAL SURGERY Log ID: [id number] Surgery/Procedure Date: 03/28/2022 Incision/Procedure Start Time: 9:47 AM Incision Close/Procedure End Time: 3:40 PM Surgeon(s) and Tumbler Tender(s): Surgeon(s) and Role: * Mary Obrien MD [...] DATE: March 28, 2022 TIME: 3:42 PM [facility] NURSING PROGon 03-28-2022 NURSING PROG HNO ID: [id number] Author: Merced Lay RN Service: ? Author Type: Registered Nurse Type: Nursing Progress Note Filed: 03/28/2022 6:56 PM Note Text: Nursing Progress Note Patient Name: Mary Leal Patient Location: [place] [address] [address] Transfer Note: Patient transferred into room/unit PK3B22 in stable condition. Actions taken: No futher actions taken at this time. Will continue to monitor and check with patient. Paged surgical team. Pt has TAP blocks, but orders were discontinued from PACU. New orders for blocks need to be placed in eMAR. Awaiting call back or orders. This note was completed by: Merced Lay [facility] NURSING PROG HNO ID: [id number] Author: Monica Nicole RN Service: Nursing Author Type: Registered Nurse Type: Nursing Progress Note Filed: 03/28/2022 6:35 PM Note Text: Nursing Progress Note Patient Name: Mary Leal Patient Location: OR [facility] OR POOL Daily Note: 1750: Dr. Novak notified of patients increase in heart rate from arrival to post op. Patient HR now maintaining in the 120s. 1830: vice president process rounding at patient bedside. Dressing and abdomen assessed- drainage to be expected on island dressing. Notified him of patients HR running high and notified that patient normally takes 50mg atenolol but held today for surgery. Patient's pain managed and other VS stable at this time. vice president process is OK with patient going to regular nursing floor at this time. Family updated. This note was completed by: Monica Nicole [facility] NURSING PROG HNO ID: [id number] Author: Vianney Chacon RN Service: Nursing Author [...] (RECOMMENDATION): None Electronically Signed By: Vianney Chacon [facility] OPERATIVE NOon 03-28-2022 OPERATIVE NO HNO ID: [id number] Author: Mary Obrien MD Service: Colorectal Author Type: Physician Type: Operative Report Filed: 03/28/2022 5:06 PM Note Text: COLON AND RECTAL SURGERY OPERATIVE REPORT PATIENT NAME: Mary Leal ADMISSION DATE: 03/28/2022 LOG ID: [id number] SURGERY/PROCEDURE DATE: 03/28/2022 INCISION/PROCEDURE START TIME: 9:47 AM INCISION CLOSE/PROCEDURE END TIME: 3:40 PM AGE: [age] year old SEX: female SURGEON(S)/PROCEDURALIST( S) AND MANAGER MANAGEMENT(S): Surgeon(s) and Role: * Mary Obrien MD [...] The abdome (more content not included)... Normal [facility] SURGICAL PATHOLOGYon 022 CASE REPORT Normal [facility] Comment on above: Order Comment: Speci men Type: BLOOD SPECIMEN Ordering Facility: [facility] Address: [address] [place] [address] Result Comment: Surg ica Pathology Report Case: [id number] Authorizing Provider: Mary Obrien MD Collected: 03/28/2022 01:43 PM Ordering Location: [facility] Received: 03/28/2022 04:10 PM Operating Room Pathologist: Areli Rodriguez MD Specimen: COLON RESECTION, terminal ileum with ileostomy Performed By: #### 5 7021-8 #### [facility] CLIA [id number] CLINICAL HISTORY ILEORECTAL ANASTOMOS IS, TAKEDOWN OF ILEOSTOMY Normal [facility] Comment on above: Order Comment: Speci men Type: BLOOD SPECIMEN Ordering Facility: [facility] Address: [address] [place] [address] Performed By: #### 5 7021-8 #### [facility] CLIA [id number] DIAGNOSIS COMMENT The histologic findi ngs are [...] evidence of associated inflammation or infectious organisms. Normal [facility] Comment on above: Order Comment: Speci men Type: BLOOD SPECIMEN Ordering Facility: [facility] Address: [address] [place] [address] Performed By: #### 5 7021-8 #### [facility] CLIA [id number] FINAL DIAGNOSIS [facility] Comment on above: Order Comment: Speci men Type: BLOOD SPECIMEN Ordering Facility: [facility] Address: [address] [place] [address] Result Comment: Shannon n and terminal ileum with ileostomy, resection: - Colon with patchy active colitis, submucosal fibrosis, acute serositis, and fibrovascular adhesions (see comment). - Small bowel with focal transmural defect, acute serositis, fibrovascular adhesions, and changes consistent with ileostomy site. - Benign lymph nodes. JEL 03/31/2022 Performed By: #### 5 7021-8 #### [facility] CLIA [id number] FINAL PERFORMING LAB Normal [facility] Comment on above: Order Comment: Speci men Type: BLOOD SPECIMEN Ordering Facility: [facility] Address: [address] [place] [address] Result Comment: Diag nostic interpretation performed at [facility], [address] [place] [address] CLIA# [id number] Social Media Campaign Manager: Joshua Anderson M.D. Performed By: #### 5 7021-8 #### [facility] CLIA [id number] [address] [place] [address] GROSS DESCRIPTION Normal [facility] Comment on above: Order Comment: Speci men Type: BLOOD SPECIMEN Ordering Facility: [facility] Address: [address] [place] [address] Result Comment: A. C OLON RESECTION. Received [...] diverticula. The serosa is jaimes-pink and smooth. Rug Cleaner Helper sections are submitted from distal to proximal [...] 2022 9:53 AM Gross examination performed at [facility], [address] [place] [address] CLIA # [id number] Performed By: #### 5 7021-8 #### [facility] CLIA [id number] [address] [place] [address] [place] Q - CBC W/DIFF AND PLTon BASOABS 59 cells/uL Normal 0-200 [facility] Specialist Comment on above: Order Comment: [facility] performed at: QPT, [facility], [address] [place] [address], [address] [place] [address], [address], Social Media Campaign Manager: Gopal Hamilton MD [facility] Collection Date/Time: [id number] [facility] Results Received Date/Time: [id number] [facility] Reported Date/Time: Performed By: #### 9 68T, 58796I, %8293, 15599R, 6399, 496X #### [facility] Default [address] [place] [address] Basophils/100 WBC (Bld) 1.0 % Normal [facility] Specialist Comment on above: Order Comment: [facility] performed at: [facility], [facility], [address] , [address] [place] [address], [address] [place] [address], Social Media Campaign Manager: Gopal Hamilton MD [facility] Date/Time: [facility] Results Received Date/Time: [facility] Reported Date/Time: Performed By: #### 9 68T, 52499M, %8293, 40386A, 6399, 496X #### [facility] [address] [place] [address] EOSABS 171 cells/uL Normal 15-500 [facility] Comment on above: Order Comment: [facility] performed at: [employer], [facility], [address] , [address] [place] [address], [address] [place] [address], Social Media Campaign Manager: Gopal Hamilton MD [facility] Date/Time: [facility] Results Received Date/Time: [facility] Reported Date/Time: Performed By: #### 9 68T, 71045Z, %8293, 76042O, 6399, 496X #### [facility] [address] [place] [address] Eosinophils/100 WBC (Bld) 2.9 % Normal [facility] Specialist Comment on above: Order Comment: [facility] performed at: [employer], [facility], [address] , [address] [place] [address], [address] [place] [address], Social Media Campaign Manager: Gopal Hamilton MD [facility] Date/Time: [facility] Results Received Date/Time: [facility] Reported Date/Time: Performed By: #### 9 68T, 50916Q, %8293, 29557J, 6399, 496X #### [facility] [address] [place] [address] Erythrocyte distribution width (RBC) [Ratio] 12.9 % Normal 11.0-15.0 [facility] Behavioral Assistant Comment on above: Order Comment: [facility] performed at: [employer], [facility], [address] [place] [address], [address] [place] [address], [address] [place] [address], Social Media Campaign Manager: Gopal Hamilton MD [facility] Date/Time: [facility] Results Received Date/Time: [facility] Reported Date/Time: Performed By: #### 9 68T, 70833P, %8293, 33450K, 6399, 496X #### [facility] [address] [place] [address] Hematocrit (Bld) [Volume fraction] 38.1 % Normal 35.0-45.0 [facility] Behavioral Assistant Comment on above: Order Comment: [facility] performed at: [employer], [facility], [address] [place] [address], [address] [place] [address], [address] [place] [address], Social Media Campaign Manager: Gopal Hamilton MD [facility] Date/Time: [facility] Results Received Date/Time: [facility] Reported Date/Time: Performed By: #### 9 68T, 06444C, %8293, 18669K, 6399, 496X #### [facility] [address] [place] [address] Hemoglobin (Bld) [Mass/Vol] 12.9 g/dL Normal 11.7-15.5 [facility] Behavioral Assistant Comment on above: Order Comment: [facility] performed at: [employer], [facility], [address] [place] [address], [address] [place] [address], [address] [place] [address], Social Media Campaign Manager: Gopal Hamilton MD [facility] Date/Time: [facility] Results Received Date/Time: [facility] Reported Date/Time: Performed By: #### 9 68T, 34866Z, %8293, 79028F, 6399, 496X #### [facility] [address] [place] [address] Lymphocytes (Bld) [#/Vol] 1.375 10*3/uL Normal 850-3900 [facility] Behavioral Assistant Comment on above: Order Comment: [facility] performed at: [employer], [facility], [address] [facility], [address] [place] [address], [address] [place] [address], Social Media Campaign Manager: Gopal Hamilton MD [facility] Date/Time: [facility] Results Received Date/Time: [facility] Reported Date/Time: Performed By: #### 9 68T, 14645K, %8293, 59585P, 6399, 496X #### [facility] [address] [place] [address] Lymphocytes/100 WBC (Bld) 23.3 % Normal [facility] Behavioral Assistant Comment on above: Order Comment: [facility] performed at: [employer], [facility], [address] [facility], [address] [place] [address], [address] [place] [address], Social Media Campaign Manager: Gopal Hamilton MD [facility] Date/Time: [facility] Results Received Date/Time: [facility] Reported Date/Time: Performed By: #### 9 68T, 10208N, %8293, 87986O, 6399, 496X #### [facility] [address] [place] [address] MCH (RBC) [Entitic mass] 30.0 pg Normal 27.0-33.0 [facility] Behavioral Assistant Comment on above: Order Comment: [facility] performed at: [employer], [facility], [address] [facility], [address] [place] [address], [address] [place] [address], Social Media Campaign Manager: Gopal Hamilton MD [facility] Collection Date/Time: [facility] Results Received Date/Time: [facility] Reported Date/Time: Performed By: #### 9 68T, 10903A, %8293, 77370L, 6399, 496X #### [facility] Default [address] [place] [address] MCHC (RBC) [Mass/Vol] 33.9 g/dL Normal 32.0-36.0 [facility] Comment on above: Order Comment: [facility] performed at: [employer], [facility], [address], [address] [place] [address], [address] [place] [address], Social Media Campaign Manager: Gopal Hamilton MD [facility] Collection Date/Time: [facility] Results Received Date/Time: [facility] Reported Date/Time: Performed By: #### 9 68T, 38421L, %8293, 67969H, 6399, 496X #### [facility] [address] [place] [address] MCV (RBC) [Entitic vol] 88.6 fL Normal 80.0-100.0 [facility] Specialist Comment on above: Order Comment: [facility] performed at: [employer], [facility], [address] [facility], [address] [place] [address], [address] [place] [address], Social Media Campaign Manager: Gopal Hamilton MD [facility] Collection Date/Time: [facility] Results Received Date/Time: [facility] Reported Date/Time: Performed By: #### 9 68T, 47957G, %8293, 21417N, 6399, 496X #### [facility] [address] [place] [address] MONOABS 460 cells/uL Normal 200-950 [facility] Assistant Comment on above: Order Comment: [facility] performed at: [employer], [facility], [address] , [address] [place] [address], [address] [place] [address], Social Media Campaign Manager: Gopal Hamilton MD [facility] Date/Time: [facility] Results Received Date/Time: [facility] Reported Date/Time: [id number] Performed By: #### 9 68T, 89266K, %8293, 21607I, 6399, 496X #### [facility] [address] [place] [address] Monocytes/100 WBC (Bld) 7.8 % Normal [facility] Special[facility] Comment on above: Order Comment: [facility] performed at: [employer], [facility], [address] , [address] [place] [address], [address] [place] [address], Social Media Campaign Manager: Gopal Hamilton MD [facility] Collection Date/Time: [facility] Results Received Date/Time: [facility] Reported Date/Time: Performed By: #### 9 68T, 23192M, %8293, 10649G, 6399, 496X #### [facility] [address] [place] [address] Neutrophils (Bld) [#/Vol] 3.835 10*3/uL Normal 1589-6087 [facility] Specialist Comment on above: Order Comment: [facility] performed at: [employer], [facility], [address] , [address] [place] [address], [address] [place] [address], Social Media Campaign Manager: Gopal Hamilton MD [facility] Collection Date/Time: [facility] Results Received Date/Time: [facility] Reported Date/Time: Performed By: #### 9 68T, 53567O, %8293, 73260Q, 6399, 496X #### [facility] [address] [place] [address] Neutrophils/100 WBC (Bld) 65 % Normal [facility] Specialist Comment on above: Order Comment: [facility] performed at: [employer], [facility], [address] , [address] [place] [address], [address] [place] [address], Social Media Campaign Manager: Gopal Hamilton MD [facility] Collection Date/Time: [facility] Results Received Date/Time: [facility] Reported Date/Time: [id number] Performed By: #### 9 68T, 61748T, %8293, 75097C, 6399, 496X #### [facility] Default [address] [place] [address] Platelet mean volume (Bld) [Entitic vol] 9.3 fL Normal 7.5-12.5 [facility] Comment on above: Order Comment: [facility] performed at: [employer], [facility], [address] , [address] [place] [address], [address] [place] [address], Social Media Campaign Manager: Gopal Hamilton MD [facility] Collection Date/Time: [facility] Results Received Date/Time: [facility] Reported Date/Time: Performed By: #### 9 68T, 90711N, %8293, 94978E, 6399, 496X #### [facility] Default [address] [place] [address] Platelets (Bld) [#/Vol] 409 10*3/uL High 140-400 [facility] Comment on above: Order Comment: [facility] performed at: [employer], [facility], [address] , [address] [place] [address], [address] [place] [address], Social Media Campaign Manager: Gopal Hamilton MD [facility] Collection Date/Time: [facility] Results Received Date/Time: [facility] Reported Date/Time: Performed By: #### 9 68T, 38026O, %8293, 54575A, 6399, 496X #### [facility] [address] [place] [address] RBC (Bld) [#/Vol] 4.30 10*6/uL Normal 3.80-5.10 [facility] Comment on above: Order Comment: [facility] performed at: [employer], [facility], [address] , [address] [place] [address], [address] [place] [address], Social Media Campaign Manager: Gopal Hamilton MD [facility] Collection Date/Time: [facility] Results Received Date/Time: [facility] Reported Date/Time: Performed By: #### 9 68T, 93365C, %8293, 47583I, 6399, 496X #### [facility] [address] [place] [address] WBC (Bld) [#/Vol] 5.9 10*3/uL Normal 3.8-10.8 Jay gambino [place] [facility] Assistant Comment on above: Order Comment: [facility] performed at: [employer], [facility], [address] [place] [address], [address] [place] [address], [address] [place] [address], Social Media Campaign Manager: Gopal Hamilton MD [facility] Collection Date/Time: [facility] Results Received Date/Time: [facility] Reported Date/Time: Performed By: #### 9 68T, 65466Q, %8293, 85189C, 6399, 496X #### [facility] Default [address] [place] [address] Q - COMPREHENSIVE METABOLIC PANEL W/EGFRon 03-10-2022 Albumin [Mass/Vol] 4.3 g/dL Normal 3.6-5.1 Jay gambino [place] [facility] Assistant Comment on above: Order Comment: [facility] performed at: [employer] [facility], [address] [place] [address], [address] [place] [address], [address] [place] [address], Social Media Campaign Manager: Gopal Hamilton MD [facility] Collection Date/Time: [facility] Results Received Date/Time: [facility] Reported Date/Time: Performed By: #### 9 68T, 14231K, %8293, 73378B, 6399, 496X #### [facility] [address] [place] [address] Albumin/Globulin [Mass ratio] 1.7 {ratio} Normal 1.0-2.5 [facility] Behavioral Assistant Comment on above: Order Comment: [facility] performed at: [employer], [facility], [address] [place] [address], [address] [place] [address], [address] [place] [address], Social Media Campaign Manager: Gopal Hamilton MD [facility] Collection Date/Time: [facility] Results Received Date/Time: [facility] Reported Date/Time: Performed By: #### 9 68T, 56172L, %8293, 98919V, 6399, 496X #### [facility] Default [address] [place] [address] ALP [Catalytic activity/Vol] 134 U/L High 31-125 [facility] Behavioral Assistant Comment on above: Order Comment: [facility] performed at: [employer], [facility], [address] [place] [address], [address] [place] [address], [address] [place] [address], Social Media Campaign Manager: Gopal Hamilton MD [facility] Collection Date/Time: [facility] Results Received Date/Time: [facility] Reported Date/Time: Performed By: #### 9 68T, 74067A, %8293, 53601S, 6399, 496X #### [facility] Default [address] [place] [address] ALT [Catalytic activity/Vol] 41 U/L High 6-29 [facility] Behavioral Assistant Comment on above: Order Comment: [facility] performed at: [employer], [facility], [address] [place] [address], [address] [place] [address], [address] [place] [address], Social Media Campaign Manager: Gopal Hamilton MD [facility] Collection Date/Time: [facility] Results Received Date/Time: [facility] Reported Date/Time: Performed By: #### 9 68T, 74101P, %8293, 65252E, 6399, 496X #### [facility] Default [address] [place] [address] AST [Catalytic activity/Vol] 33 U/L Normal 10-35 [facility] Behavioral Assistant Comment on above: Order Comment: [facility] performed at: [employer], [facility], [address], [address] [place] [address], [address] [place] [address], Social Media Campaign Manager: Gopal Hamilton MD [facility] Date/Time: [id number] [facility] Results Received Date/Time: [facility] Reported Date/Time: Performed By: #### 9 68T, 85967P, %8293, 05821A, 6399, 496X #### [facility] [address] [place] [address] BUN/CREA 17 NOT APPLICABLE Normal 6-22 Adrienne n [place] [facility] Assistant Comment on above: Order Comment: [facility] performed at: [employer], [facility], [address] [facility], [address] [place] [address], [address] [place] [address], Social Media Campaign Manager: Gopal Hamilton MD [facility] Date/Time: [facility] Results Received Date/Time: [facility] Reported Date/Time: Performed By: #### 9 68T, 34910M, %8293, 42401Z, 6399, 496X #### [facility] [address] [place] [address] Calcium [Mass/Vol] 9.6 mg/dL Normal 8.6-10.2 Jay gambino [place] [facility] Comment on above: Order Comment: [facility] performed at: [employer], [facility], [address] , [address] [place] [address], [address] [place] [address], Social Media Campaign Manager: Gopal Hamilton MD [facility] Date/Time: [facility] Results Received Date/Time: [facility] Reported Date/Time: Performed By: #### 9 68T, 22131R, %8293, 33568G, 6399, 496X #### [facility] [address] [place] [address] Chloride [Moles/Vol] 103 mmol/L Normal 98-110 Gen rodriguez [place] [facility] Comment on above: Order Comment: [facility] performed at: [employer], [facility], [address] , [address] [place] [address], [address] [place] [address], Social Media Campaign Manager: Gopal Hamilton MD [facility] Date/Time: [facility] Results Received Date/Time: [facility] Reported Date/Time: Performed By: #### 9 68T, 33016F, %8293, 33294V, 6399, 496X #### [facility] [address] [place] [address] CO2 [Moles/Vol] 27 mmol/L Normal 20-32 [facility] Behavioral Assistant Comment on above: Order Comment: [facility] performed at: [employer], [facility], [address], [address] [place] [address], [address] [place] [address], Social Media Campaign Manager: Gopal Hamilton MD [facility] Date/Time: [facility] Results Received Date/Time: [facility] Reported Date/Time: Performed By: #### 9 68T, 67690C, %8293, 46645G, 6399, 496X #### [facility] [address] [place] [address] Creatinine [Mass/Vol] 0.65 mg/dL Normal 0.50-1.10 [facility] Behavioral Assistant Comment on above: Order Comment: [facility] performed at: [employer], [facility], [address], [address] [place] [address], [address] [place] [address], Social Media Campaign Manager: Gopal Hamilton MD [facility] Date/Time: [facility] Results Received Date/Time: [facility] Reported Date/Time: Performed By: #### 9 68T, 41092F, %8293, 53341B, 6399, 496X #### [facility] Default [address] [place] [address] eGFRAA ([facility]) 121 mL/min/1.73m2 Normal > OR = 60 [facility] Behavioral Assistant Comment on above: Order Comment: [facility] Testing performed at: [employer], [facility], [address] [facility], [address] [place] [address], [address] [place] [address], Social Media Campaign Manager: Gopal Hamilton MD [facility] Collection Date/Time: [facility] Results Received Date/Time: [facility] Reported Date/Time: Performed By: #### 9 68T, 71924P, %8293, 67181Z, 6399, 496X #### [facility] Default [address] [place] [address] eGFRNAA (Quest) 104 mL/min/1.73m2 Normal > OR = 60 [facility] Comment on above: Order Comment: Quest Testing performed at: [employer], [facility], [address] [place] [address], [address] [place] [address], , Social Media Campaign Manager: Gopal Hamilton MD [facility] Collection Date/Time: [facility] Results Received Date/Time: [facility] Reported Date/Time: Performed By: #### 9 68T, 17759M, %8293, 04481W, 6399, 496X #### [facility] Default [address] [place] [address] Globulin (S) [Mass/Vol] 2.5 g/dL Normal 1.9-3.7 [facility] Comment on above: Order Comment: Quest Testing performed at: [employer], [facility], [address] [place] [address], [address] [place] [address], [phone], Social Media Campaign Manager: Gopal Hamilton MD [facility] Collection Date/Time: [facility] Results Received Date/Time: [facility] Reported Date/Time: Performed By: #### 9 68T, 75856M, %8293, 60745F, 6399, 496X #### [facility] Default [address] [place] [address] Glucose [Mass/Vol] 94 mg/dL Normal 65-99 [facility] Specialist Comment on above: Order Comment: Quest Testing performed at: [employer], [facility], [address] [place] [address], [address] [place] [address], [address] [place] [address], Social Media Campaign Manager: Gopal Hamilton MD [facility] Collection Date/Time: [facility] Results Received Date/Time: [facility] Reported Date/Time: Result Comment: Fasting reference interval Performed By: #### 9 68T, 68285E, %8293, 76240N, 6399, 496X #### [facility] Default [address] [place] [address] Potassium [Moles/Vol] 4.4 mmol/L Normal 3.5-5.3 Venita larson [place] Behavioral Assistant Comment on above: Order Comment: Quest Testing performed at: [employer], [facility], [address] [place] [address], [address] [place] [address], [address] [place] [address], Social Media Campaign Manager: Gopal Hamilton MD [facility] Collection Date/Time: [facility] Results Received Date/Time: [facility] Reported Date/Time: Performed By: #### 9 68T, 13206W, %8293, 31005H, 6399, 496X #### [facility] Default [address] [place] [address] Protein [Mass/Vol] 6.8 g/dL Normal 6.1-8.1 Jay gambino [place] Behavioral Assistant Comment on above: Order Comment: Quest Testing performed at: [employer], [facility], [address] [place] [address], [address] [place] [address], [address] [place] [address], Social Media Campaign Manager: Gopal Hamilton MD [facility] Collection Date/Time: [facility] Results Received Date/Time: [facility] Reported Date/Time: Performed By: #### 9 68T, 22788J, %8293, 82460O, 6399, 496X #### [facility] Default [address] [place] [address] Sodium [Moles/Vol] 138 mmol/L Normal 135-146 Jay gambino [place] Behavioral Assistant Comment on above: Order Comment: Quest Testing performed at: [employer], [facility], [address] [place] [address], [address] [place] [address], [address] [place] [address], Social Media Campaign Manager: Gopal Hamilton MD Quest Collection Date/Time: [facility] Results Received Date/Time: [facility] Reported Date/Time: Performed By: #### 9 68T, 69732J, %8293, 48237V, 6399, 496X #### [facility] Default [address] [place] [address] TBIL <0.3 Normal 0.2-1.2 [facility] Behavioral Assistant Comment on above: Order Comment: Quest Testing performed at: [employer], [facility], [address] [place] [address], [address] [place] [address], [address] [place] [address], Social Media Campaign Manager: Gopal Hamilton MD [facility] Collection Date/Time: [facility] Results Received Date/Time: [facility] Reported Date/Time: Performed By: #### 9 68T, 24719V, %8293, 29948W, 6399, 496X #### [facility] Default [address] [place] [address] Urea nitrogen [Mass/Vol] 11 mg/dL Normal 7-25 [place] Behavioral Assistant Comment on above: Order Comment: Quest Testing performed at: [facility], [address] [place] [address], [address] [place] [address], [address] [place] [address], Social Media Campaign Manager: Gopal Hamilton MD Quest Collection Date/Time: [facility] Results Received Date/Time: [facility] Reported Date/Time: Performed By: #### 9 68T, 61126G, %8293, 60755W, 6399, 496X #### [facility] Default [address] [place] [address] Q - DLDL REFLEXon 03-10-2022 Cholesterol in LDL [Mass/Vol] 87 mg/dL Normal <100 [place] Behavioral Assistant Comment on above: Order Comment: Quest Testing performed at: [facility], [address] [facility], [address] [place], [place], [address] [place] [address], Social Media Campaign Manager: Gopal Hamilton MD [facility] Collection Date/Time: [facility] Results Received Date/Time: [facility] Reported Date/Time: Result Comment: Desirable range <100 mg/dL for primary prevention; <70 mg/dL for patients with CHD or diabetic patients with > or = 2 CHD risk factors. Performed By: #### 9 68T, 39701K, %8293, 84629K, 6399, 496X #### [facility] Default [address] [place] [address] Q - HEMOGLOBIN A1Con HEMOGLOBIN A1c 5.0 % of total Hgb Normal <5.7 No rthern [place] Behavioral Assistant Comment on above: Order Comment: Quest Testing performed at: [employer], [facility], [address] [facility], [address] [place] [address], [address] [place] [address], Social Media Campaign Manager: Gopal Hamilton MD [facility] Collection Date/Time: Quest [...] diagnosis of diabetes in children. According to [place] Diabetes Association (ADA) guidelines, hemoglobin A1c <7.0% represents optimal control in non- diabetic patients. Different metrics may apply to specific patient populations. Standards of Medical Care in Diabetes(ADA). Performed By: #### 9 68T, 02924D, %8293, 45747C, 6399, 496X #### [facility] Default [address] [place] [address] Q - Lipid Panelon 03-10-2022 Cholesterol [Mass/Vol] 230 mg/dL High <200 No rthern [place] Behavioral Assistant Comment on above: Order Comment: Quest Testing performed at: [employer], [facility], [address] [facility], [address] [place] [address], [address] [place] [address], Social Media Campaign Manager: Gopal Hamilton MD [facility] Collection Date/Time: [facility] Results Received Date/Time: [facility] Reported Date/Time: Performed By: #### 9 68T, 68736U, %8293, 01077R, 6399, 496X #### [facility] Default [address] [place] [address] Cholesterol in HDL [Mass/Vol] 52 mg/dL Normal > OR = 50 [facility] [place] Behavioral Assistant Comment on above: Order Comment: Quest Testing performed at: [employer], [facility], [address] [facility], [address] [place] [address], [address] [place] [address], Social Media Campaign Manager: Gopal Hamilton MD [facility] Collection Date/Time: [facility] Results Received Date/Time: [facility] Reported Date/Time: Performed By: #### 9 68T, 85560W, %8293, 68068L, 6399, 496X #### [facility] Default [address] [place] [address] Cholesterol.total/Chol esterol in HDL [Mass ratio] 4.4 {ratio} Normal <5.0 [place] Behavioral Assistant Comment on above: Order Comment: Quest Testing performed at: [employer], [facility], [address] [facility], [address] [place] [address], [address] [place] [address], Social Media Campaign Manager: Gopal Hamilton MD [facility] Collection Date/Time: [id number] [facility] Results Received Date/Time: [facility] Reported Date/Time: Performed By: #### 9 68T, 08795A, %8293, 07919V, 6399, 496X #### [facility] Default [address] [place] [address] LDLD SEE NOTE Normal [place] Behavioral Assistant Comment on above: Order Comment: [facility] Testing performed at: [employer], [facility], [address] , [address] [place] [address], [phone], Social Media Campaign Manager: Gopal Hamilton MD Quest Collection Date/Time: Quest [...] LDL-C. Estevan SCHILLING et al. ZANA. 2013;310(19): 5533-9064 (http://education.Yumit.Topio/faq/CCD665) Performed By: #### 9 68T, 38897R, %8293, 05172Y, 6399, 496X #### [facility] Default [address] [place] [address] NON HDL CHOLESTEROL 178 mg/dL (calc) High <130 [facility] Behavioral Assistant Comment on above: Order Comment: Quest Testing performed at: [employer], [facility], [address] , [address] [place], [address], Social Media Campaign Manager: Gopal Hamilton MD [facility] Collection Date/Time: Quest Results Received Date/Time: [facility] Reported Date/Time: Result Comment: For patients with diabetes plus 1 major ASCVD risk factor, treating to a non-HDL-C goal of <100 mg/dL (LDL-C of <70 mg/dL) is considered a therapeutic option. Performed By: #### 9 68T, 19425S, %8293, 86462M, 6399, 496X #### [facility] Default [address] [place] [address] Triglyceride [Mass/Vol] 410 mg/dL High <150 [facility] Behavioral Assistant Comment on above: Order Comment: Quest Testing performed at: [employer], [facility], [address], [address] [place] [address], [address] [place] [address], Social Media Campaign Manager: Gopal Hamilton MD Quest Collection Date/Time: [facility] Results Received Date/Time: [facility] Reported Date/Time: Result Comment: If a non-fasting specimen was collected, consider repeat triglyceride testing on a fasting specimen if clinically indicated. João et al. J. of Clin. Lipidol. 2015;9:129-169. Performed By: #### 9 68T, 86132B, %8293, 32308U, 6399, 496X #### [facility] Default [address] [place] [address] Q - TROPONIN Ion 03-10-2022 TROPONIN I 3 ng/L Normal < OR = 47 [facility] Comment on above: Order Comment: Quest Testing performed at: [facility], [address] , [address] [place], [place], [address] [place] [address], Social Media Campaign Manager: Gopal Hamilton MD [facility] Collection Date/Time: [facility] Results Received Date/Time: [facility] Reported Date/Time: Result Comment: In accord with published recommendations, serial testing of troponin I at intervals of 2 to 4 hours for up to 12 to 24 hours is suggested in order to corroborate a single troponin I result. An elevated troponin alone is not sufficient to make the diagnosis of RI. Performed By: #### 9 68T, 80556W, %8293, 76498B, 6399, 496X #### [facility] Default [address] [place] [address] UA DIP, URINE (POC)on 2021 BILIRUBIN UA (POCT) Negative Negative [facility] CLARITY UA (POCT) Clear [facility] COLOR UA (POCT) Yellow [facility] GLUCOSE UA (POCT) Negative Negative mg/dL [facility] HEMOGLOBIN/BLOOD UA (POCT) Negative Negative [facility] KETONE UA (POCT) Negative Negative mg/dL [facility] LEUKOCYTES UA (POCT) Negative Negative [facility] NITRITE UA (POCT) Negative Negative [facility] PH UA (POCT) 5.0 4.5 - 8.0 [facility] Protein Ql (U) Trace Abnormal Negative mg/dL [facility] SPECIFIC GRAVITY UA (POCT) >=1.030 1.005 - 1.030 [facility] UROBILINOGEN UA (POCT) 0.2 E.U./dL Brenda l E.U./dL [facility] CNTHERAPYon 01-31-2022 CNTHERAPY OT/PT/Speech Visit (PTLHO) ----- MARY LEAL ([id number]) 1970 F Date Time Provider Department 01/31/22 10:30 AM NEWTON WOODWARD Date Time Provider Department [place] 01/31/2022 10:30 AM [id number] Reason for Visit: Physical Therapy [503] [...] (FLONASE) 50 mcg/actuation nasal spray Use 1 [place] in each nostril once daily. - carBAMazepine [...] by mouth every morning BEFORE BREAKFAST - zhkgehcmsww-zecmakjjk-fqi anter (TRELEGY ELLIPTA) 100-62.5-25 mcg Inhale 1 Puff as instructed once daily. - atenolol (TENORMIN) 50 mg tablet Take 50 mg by mouth once daily. ----- [facility] CNTHERAPYon 01-24-2022 CNTHERAPY OT/PT/Speech Visit (PTLHO) ----- MARY LEAL ([id number]) 1970 F Date Time Provider Department 01/24/22 10:30 AM NEWTON WOODWARD Date Time Provider Department Center 01/24/2022 10:30 AM [id number] WOODWARD [facility] Reason for Visit: Physical Therapy [503] [...] (FLONASE) 50 mcg/actuation nasal spray Use 1 [place] in each nostril once daily. - carBAMazepine [...] by mouth every morning BEFORE BREAKFAST - fpdnwhrhjvv-vvpghckym-zlh anter (TRELEGY ELLIPTA) 100-62.5-25 mcg Inhale 1 Puff as instructed once daily. - atenolol (TENORMIN) 50 mg tablet Take 50 mg by mouth once daily. ----- [facility] CNTHERAPYon 01-18-2022 CNTHERAPY OT/PT/Speech Visit (PTLHO) ----- MARY LEAL ([id number]) 1970 F Date Time Provider Department 01/18/22 12:15 PM JESSI ISAACS Date Time Provider Department Center 01/18/2022 12:15 PM [id number], KATHRYN [facility] Reason for Visit: PT Eval [747] [...] (FLONASE) 50 mcg/actuation nasal spray Use 1 [place] in each nostril once daily. - carBAMazepine [...] by mouth every morning BEFORE BREAKFAST - byxbawfmnva-lggxptgid-nty anter (TRELEGY ELLIPTA) 100-62.5-25 mcg Inhale 1 Puff as instructed once daily. - atenolol (TENORMIN) 50 mg tablet Take 50 mg by mouth once daily. ----- Letter Text [id number] Author: Sonido Owen MD Service: Colorectal Author Type: Resident Type: Discharge Summary Filed: 12/27/2021 3:55 PM Note Text: ----- Attestation signed by Mary Obrien MD at 12/29/2021 4:[address] [facility] STAFF PHYSICIAN NOTE OF PERSONAL INVOLVEMENT IN CARE I have reviewed the discharge summary documented by the resident and I personally participated in the tejada components. I have confirmed and edited as necessary, the PFSH and ROS obtained by others. I have discussed the case and management of the patient's care. Mary Obrien MD Date of Service: December 29, 2021 ----- DISCHARGE SUMMARY PATIENT NAME: Mary Leal ADMISSION [...] the PACU and was transferred to the [facility]. Postoperatively, the patient recovered well. Her [...] BREAKFAST Qty: 30 capsule Refills: 3 Associated Diagnoses:Gastroesophagea l reflux disease, unspecified whether esophagitis present TRELEGY ELLIPTA 1 Puff Inhale 1 Puff as instructed once daily. prucalopride (MOTEGRITY) 2 mg Take 2 mg by mouth once daily. Qty: 30 tablet Refills: 6 Associated Diagnoses:Chronic idiopathic constipation atenolol (TENORMIN) 50 mg Finesse (more content not included)... [facility] CONSULTon 12-27-2021 CONSULT HNO ID: [id number] Author: Trini Hines RN Service: Wound/Ostomy Author Type: Registered Nurse Type: Consults Filed: 12/27/2021 3:32 PM Note Text: STOMA CARE POST-OPERATIVE ASSESSMENT AND PATIENT EDUCATION Patient Name: Mary Leal Date: December 27, 2021 Time: 3:20 PM ET Care Outcome: Ms. Leal was seen today on the [facility] for ostomy education and a pouch change lesson. ET's Next Scheduled Visit: Complete. STOMA ASSESSMENT Stoma type: Loop ileostomy Diameter: 35 mm with and extra 1 mm cut on the medial side of the pouch. Location: RLQ Protrusion: Budded, Os points downward Mucosal condition and color: Red and Pollock and moist. Boni: No Mucocutaneous Junction: Intact [...] one piece cut to fit drainable pouch (#63202) and Coloplast Brava moldable ring (2mm) #[id number]. Brava barrier strips, product # [id number] applied around the border of the pouch. INCISION Degree of approximation: 100% Approximating devices: Surgical Glue Drainage: None Method of Management: BUTCHER SUPERVISOR Time Increment: 45 minutes Comments: NA Supplies [...] Referral Recommendation: Home Health Agency SIGNATURE: Trini Hines BSN RN COCN CWCN This is an electronically created document. IF PRINTED, PLEASE DO NOT REMOVE FROM THE CHART OR MODIFY PRINTED COPY. [facility] NURSING PROGon 12-27-2021 NURSING PROG HNO ID: [id number] Author: Marizol Hankins RN Service: ? Author Type: Registered Nurse Type: Nursing Progress Note Filed: 12/27/2021 4:39 PM Note Text: Nursing Progress Note Patient Name: Mary Leal Patient Location: [place] [address] [address] Daily Note: Pt AANDO x 3. Lap site BUTCHER SUPERVISOR with glue, no drainage. Pt on GI [...] This note was completed by: Marizol Hankins [facility] NUTRITIONon 12-27-2021 NUTRITION HNO ID: [id number] Author: Merced Morales DTR Service: Nutrition Therapy Author Type: Business And Marketing Teacher Type: Nutrition Filed: 12/27/2021 12:16 PM Note Text: NUTRITION THERAPY HIDE HOUSE SUPERVISOR NOTE SERVICE DATE: 12/27/2021 SERVICE TIME: 10:00 [...] minutes SIGNATURE: Merced Morales DTR PATIENT NAME: Mayr Leal DATE: December 27, 2021 TIME: 12:15 PM [facility] PT EDon 12-27-2021 PT ED HNO ID: [id number] Author: Merced Morales DTR Service: Nutrition Therapy Author Type: Business And Marketing Teacher Type: Patient Education Filed: 12/27/2021 12:16 PM [...] December 27, 2021 TIME: 12:16 PM PAGER: Normal [facility] Basic Metabolic Panlon 12-26 Anion gap [Moles/Vol] 9 mmol/L Normal 9-18 [facility] Comment on above: Performed By: #### B MP #### [place] [id number] Calcium [Mass/Vol] 8.5 mg/dL Normal 8.5-10.5 [facility] Comment on above: Performed By: #### B MP #### [place] [address] Chloride [Moles/Vol] 102 mmol/L Normal 98-110 [facility] Comment on above: Performed By: #### B MP #### [place] [id number] CO2 [Moles/Vol] 28 mmol/L Normal 23-32 [facility] Comment on above: Performed By: #### B MP #### [place] [id number] Creatinine [Mass/Vol] 0.62 mg/dL Low 0.70-1.40 [facility] Comment on above: Performed By: #### B MP #### [place] [phone] eGFR- Amer. >60 Normal >59 [facility] Comment on above: Performed By: #### B MP #### [place] [id number] eGFR-All Other Races >60 Normal >59 [facility] Comment on above: Result Comment: eGFR [...] [email or web address]/gfr_[email or web address]. Performed By: #### B MP #### [place] [phone] Glucose [Mass/Vol] 71 mg/dL Normal 65-100 [facility] Comment on above: Performed By: #### B MP #### [place] [phone] Potassium [Moles/Vol] 4.0 mmol/L Normal 3.5-5.0 [facility] Comment on above: Performed By: #### B MP #### [place] [id number] Sodium [Moles/Vol] 139 mmol/L Normal 132-148 [facility] Comment on above: Performed By: #### B MP #### [place] [phone] Urea nitrogen [Mass/Vol] 10 mg/dL Normal 8-25 [facility] Comment on above: Performed By: #### B MP #### [place] [phone] NURSING PROGon 12-26-2021 NURSING PROG HNO ID: [id number] Author: Juan Crowley RN Service: Nursing Author Type: Registered Nurse Type: Nursing Progress Note Filed: 12/26/2021 5:25 PM Note Text: Nursing Progress Note Patient Name: Mary Leal Patient Location: [place] [address] Daily Note: Call discontinued as directed in orders. 700cc output from call. 250cc NS instilled and then call catheter removed. Patient assisted to BSC and voided 200cc pink tinged urine. Patient assisted back to bed, not wanting to go to chair. Call light in reach. This note was completed by: [facility] NURSING PROG HNO ID: [id number] Author: Juan Crowley, RN Service: Nursing Author Type: Registered Nurse Type: Nursing Progress Note Filed: 12/26/2021 3:51 PM Note Text: Nursing Progress Note Patient Name: Mary Leal Patient Location: [place] [address] Daily Note: Patient AANDOx3. VSS. 2L NC POx. IVF infusing as ordered. Dilaudid PASSEMENTERIE WORKER, OXY IR on for pain. Patient drowsy yet easily arousable. Lap sites and transverse incision ELENI with glue. Ileostomy draining liquid brown. Call draining clear yellow. PAS on. No edema. Fa,saman at bed side. Call light in reach. This note was completed by: [facility] Basic Metabolic Panlon 12-25 Anion gap [Moles/Vol] 9 mmol/L Normal 9-18 [facility] Comment on above: Performed By: #### B MP #### [facility] [address] [place] [address] Calcium [Mass/Vol] 8.5 mg/dL Normal 8.5-10.5 [facility] Comment on above: Performed By: #### B MP #### [place] [phone] Chloride [Moles/Vol] 104 mmol/L Normal 98-110 [facility] Comment on above: Performed By: #### B MP #### [place] [phone] CO2 [Moles/Vol] 28 mmol/L Normal 23-32 [facility] Comment on above: Performed By: #### B MP #### [place] [phone] Creatinine [Mass/Vol] 0.72 mg/dL Normal 0.70-1.40 [facility] Comment on above: Performed By: #### B MP #### [place] [address] eGFR- Amer. >60 Normal >59 [facility] Comment on above: Performed By: #### B MP #### [place] [phone] eGFR-All Other Races >60 Normal >59 [facility] Comment on above: Result Comment: eGFR [...] [email or web address]/gfr_[email or web address]. Performed By: #### B MP #### [place] [address] Glucose [Mass/Vol] 91 mg/dL Normal 65-100 [facility] Comment on above: Performed By: #### B MP #### [facility] [address] [place] [address] Potassium [Moles/Vol] 4.0 mmol/L Normal 3.5-5.0 [facility] Comment on above: Performed By: #### B MP #### [facility] [id number] [place] [address] Sodium [Moles/Vol] 141 mmol/L Normal 132-148 [facility] Comment on above: Performed By: #### B MP #### [place] [address] Urea nitrogen [Mass/Vol] 12 mg/dL Normal 8-25 [facility] Comment on above: Performed By: #### B MP #### [place] [address] CASE MGT INIT ASSESon 2021 CASE MGT INIT ASSES HNO ID: [id number] Author: TITO Whitt Service: ? 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 Last discharge within 30 days: No Advance Directive: Current Advance Directive: Health Care Power of Electrocardiogram Technician In Chart: No Health LiteracyHow often do [...] None Has the Patient Been in a Residential Facility in the Past 30 days?: No [...] Completely I feel financially burdened by my [id number] expenses for my prescription medication:: 0 - Disagree Completely Risk Score: 0 Patient is categorized as: Low risk < 2 Are you interested in bedside delivery of your medications? Yes Is Patient Psychosocially Complex?: No ASSESSMENT AND PLAN: Medical Needs: Medical Needs: None Psychosocial Needs: Psychosocial Needs: None FREEDOM OF CHOICE EXPLAINED: Barn[place] of Choice Given: Yes Level of Care Discussed: Home Care Financial Disclosure Provided: Yes Financial Disclosure Comments: careport Provider List: Home Care Provider list within the patient's requested geographic area shared with the patient/family: Yes within: 15 miles of zip code: [address] Quality and resource use metrics shared with [...] bedside with pt during assessment. Charo Obando [phone]. Home care referrals sent. Daughter to transport at time of discharge. SIGNATURE: TITO Whitt PATIENT NAME: Mary Leal DATE: December 25, 2021 TIME: 11:39 AM PAGER/CONTACT #: [phone] Normal [facility] CBC and Differentialon 12-25 Abs Baso 0.03 k/uL Normal <0.11 [facility] Comment on above: Performed By: #### 5 7021-8 #### [facility] CLIA [id number] [address] [place] [address] [place] Abs Medina 0.45 k/uL Normal <0.87 [facility] Comment on above: Performed By: #### 5 7021-8 #### [facility] CLIA [id number] [address] [place] [address] STATES OF [facility] Abs Neut 3.85 k/uL Normal 1.45-7.50 [facility] Comment on above: Performed By: #### 5 7021-8 #### [facility] CLIA [id number] [address] [place] [address] [place] Absolute nRBC <0.01 Normal <0.01 [facility] Comment on above: Performed By: #### 5 7021-8 #### [facility] CLIA [id number] [address] [place] [address] [place] Basophils/100 WBC (Bld) 0.5 % Normal [facility] Comment on above: Performed By: #### 5 7021-8 #### [facility] CLIA [id number] [address] [place] [address] [place] DTYPE Auto Diff Normal [facility] Comment on above: Performed By: #### 5 7021-8 #### [facility] CLIA [id number] [address] [place] [address] [place] Eosinophils (Bld) [#/Vol] 0.14 10*3/uL Normal <0.46 [facility] Comment on above: Performed By: #### 5 7021-8 #### [facility] CLIA [id number] [place] [address] [place] Eosinophils/100 WBC (Bld) 2.3 % Normal [facility] Comment on above: Performed By: #### 5 7021-8 #### [facility] CLIA [id number] [address] [place] [address] [place] Erythrocyte distribution width (RBC) [Ratio] 11.6 % Normal 11.5-15.0 [facility] Comment on above: Performed By: #### 5 7021-8 #### [facility] CLIA [id number] [address] [place] [address] [place] Hematocrit (Bld) [Volume fraction] 35.2 % Low 36.0-46.0 [facility] Comment on above: Performed By: #### 5 7021-8 #### [facility] CLIA [id number] [address] [place] [address] [place] Hemoglobin (Bld) [Mass/Vol] 11.6 g/dL Normal 11.5-15.5 [facility] Comment on above: Performed By: #### 5 7021-8 #### [facility] CLIA [id number] [address] [place] [address] [place] Lymphocytes (Bld) [#/Vol] 1.47 10*3/uL Normal 1.00-4.00 [facility] Comment on above: Performed By: #### 5 7021-8 #### [facility] CLIA [id number] [address] [place] [address] [place] Lymphocytes/100 WBC (Bld) 24.7 % Normal [facility] Comment on above: Performed By: #### 5 7021-8 #### [facility] CLIA [id number] [address] [place] [address] [place] MCH 29.5 pG Normal 26.0-34.0 [facility] Comment on above: Performed By: #### 5 7021-8 #### [facility] CLIA [id number] [address] [place] [address] [place] MCHC (RBC) [Mass/Vol] 33.0 g/dL Normal 30.5-36.0 [facility] Comment on above: Performed By: #### 5 7021-8 #### [facility] CLIA [id number] [address] [place] [address] [place] MCV (RBC) [Entitic vol] 89.6 fL Normal 80.0-100.0 [facility] Comment on above: Performed By: #### 5 7021-8 #### [facility] CLIA [id number] [address] [place] [address] OF [place] Monocytes/100 WBC (Bld) 7.6 % Normal [facility] Comment on above: Performed By: #### 5 7021-8 #### [facility] CLIA [id number] [address] [place] [address] STATES [place] Neutrophils/100 WBC (Bld) 64.9 % Normal [facility] Comment on above: Performed By: #### 5 7021-8 #### [facility] CLIA [id number] [address] [place] [address] [place] NRBCs 0.0 /100 WBC Normal 0 [facility] Comment on above: Performed By: #### 5 7021-8 #### [facility] CLIA [id number] [address] [place] [address] [place] Platelet mean volume (Bld) [Entitic vol] 9.0 fL Normal 9.0-12.7 [facility] Comment on above: Performed By: #### 5 7021-8 #### [facility] CLIA [id number] [address] [place] [address] [place] Platelets (Bld) [#/Vol] 271 10*3/uL Normal 150-400 [facility] Comment on above: Performed By: #### 5 7021-8 #### [facility] CLIA [id number] [address] [place] [address] [place] RBC (Bld) [#/Vol] 3.93 10*6/uL Normal 3.90-5.20 [facility] Comment on above: Performed By: #### 5 7021-8 #### [facility] CLIA [id number] [address] [place] [id number] [place] WBC (Bld) [#/Vol] 5.96 10*3/uL Normal 3.70-11.00 [facility] Comment on above: Performed By: #### 5 7021-8 #### [facility] CLIA [id number] [address] [place] [id number] [facility] CONSULTon 12-25-2021 CONSULT HNO ID: [id number] Author: Tri Kowalski APRN.COAL WEIGHER Service: Wound/Ostomy Author Type: Nurse Practitioner Type: Consults Filed: 12/25/2021 11:37 AM Note Text: OSTOMY SERVICE CONSULT TONGUE AND GROOVE MACHINE SETTER SERVICE DATE: 12/25/2021 SERVICE TIME: 1015 Consultation [...] HX 07/2021 revision - VAGINAL HYSTERECTOMY 2014 LAVH 10/2015 for endometriosis, has remaining both Current [...] mL 20 mEq INTRAVENOUS PRN - HYDROmorphone PASSEMENTERIE WORKER 0.5 mg/mL in NaCl 0.9% 100 mL [...] visible at this time Supportive Tissue: Semisoft Impression/Recommendation s OSTOMY CARE EDUCATION: Today's Teaching Consisted of: [...] with h (more content not included)... Normal [facility] NURSING PROGon 12-25-2021 NURSING PROG HNO ID: [id number] Author: Marilyn Henning, MAKI Service: ? Author Type: Registered Nurse Type: Nursing Progress Note Filed: 12/25/2021 7:01 PM Note Text: Nursing Progress Note Patient Name: Mary Leal Patient Location: [facility]C33/GY1P-97 Daily Note: 0930 Pt AANDOx3. Lap sites intact. ABD tender. PASSEMENTERIE WORKER pump running. Stoma beefy red, dark brown liquid output. Pt stated that the eye pressure felt overnite has resolved. Call remains in place until OBGYN sees pt 12/26. Pt requesting PO pain medication. 1100 Pt up to chair. [address] Ontiveros bedside. 5mg oxy ordered q4 PRN. This note was completed by: Marilyn Henning [facility] NURSING PROG HNO ID: [id number] Author: Annette Ford RN Service: ? Author Type: Registered Nurse Type: Nursing Progress Note Filed: 12/25/2021 6:12 AM Note Text: Nursing Progress Note Patient Name: Mary Leal Patient Location: [place] [address] [address] Daily Note: Pt has been complaining of [...] This note was completed by: Annette Ford [facility] ANES POSTPROC EVALon 022 ANES POSTPROC EVAL HNO ID: [id number] Author: Chairsse Aggarwal MD Service: Anesthesiology Author Type: Anesthesiologist Type: Anesthesia Postprocedure Evaluation Filed: 12/24/2021 4:17 PM Note Text: POST ANESTHESIA EVALUATION NOTE : 1970 Procedure Summary Date: 12/24/21 Room / Location: OR10 / [facility] OR Anesthesia Start: 810 Anesthesia Stop: 1414 Procedures: PROCTOPEXY LAPAROSCOPIC (N/A Abdomen) ANTERIOR COLPORRHAPHY [...] December 24, 2021 TIME: 4:17 PM CSN: [id number] [facility] ANES PRE-OPon 12-24-2021 ANES PRE-OP HNO ID: [id number] Author: Chayito Ojeda MD Service: Anesthesiology Author [...] 11pm the evening prior to surgery. - oebnojaruev-sbsnxxxcu-qxd anter (TRELEGY ELLIPTA) 100-62.5-25 mcg Inhale 1 Puff [...] December 24, 2021 TIME: 7:27 AM CSN: [id number] [facility] BRIEF OP NOTon 12-24-2021 BRIEF OP NOT HNO ID: [id number] Author: Jenifer Ayala MD Service: Colorectal Author Type: Fellow Type: Brief Op Note Filed: 12/24/2021 12:16 PM Note Text: BRIEF OPERATIVE NOTE - COLORECTAL SURGERY Log ID: [id number] Surgery/Procedure Date: 12/24/2021 Incision/Procedure Start Time: 8:50 AM Incision Close/Procedure End Time: Surgeon(s) and Tumbler Tender(s): Surgeon(s) and Role: Panel 1: * Mary [...] DATE: December 24, 2021 TIME: 12:10 PM [facility] NURSING PROGon 12-24-2021 NURSING PROG HNO ID: [id number] Author: Marilyn Henning RN Service: ? Author Type: Registered Nurse Type: Nursing Progress Note Filed: 12/24/2021 6:36 PM Note Text: Nursing Progress Note Patient Name: Mary Leal [address] Daily Note: 1816 Pt arrived on floor with 100.2F temperature. Scheduled tylenol administered. Temperature 98.6 at 1816. Surgical incisions BUTCHER SUPERVISOR with glue, intact. Ostomy beefy red, producing sweat. Call remains in place. Pt Educated on PASSEMENTERIE WORKER pump usage. Daughter bedside. Bed low and locked. This note was completed by: Marilyn Henning [facility] NURSING PROG HNO ID: [id number] Author: Marilyn Henning RN Service: ? Author Type: Registered Nurse Type: Nursing Progress Note Filed: 12/24/2021 4:19 PM Note Text: Nursing Progress Note Patient Name: Mary Leal Patient Location: [place] [address] Transfer Note: Patient transferred into room/unit PK3-33 in stable condition. Actions taken: No futher actions taken at this time. Will continue to monitor and check with patient. This note was completed by: Marilyn Henning [facility] NURSING PROG HNO ID: [id number] Author: Dianelys Lopez RN Service: Nursing Author [...] REFERRAL (RECOMMENDATION): None Electronically Signed By: Dianelys Lopez [facility] OPERATIVE NOon 12-24-2021 OPERATIVE NO HNO ID: [id number] Author: Mary Obrien MD Service: Colorectal Author Type: Physician Type: Operative Report Filed: 12/24/2021 12:34 PM Note Text: COLON AND RECTAL SURGERY OPERATIVE REPORT PATIENT NAME: Mary Leal ADMISSION DATE: 12/24/2021 LOG ID: [id number] SURGERY/PROCEDURE DATE: 12/24/2021 INCISION/PROCEDURE START TIME: 8:50 AM INCISION CLOSE/PROCEDURE END TIME: AGE: [age] year old SEX: female SURGEON(S)/PROCEDURALIST( S) AND MANAGER MANAGEMENT(S): Surgeon(s) and Role: Panel 1: * Mary [...] port site. This was ligated with a igrklb-oo-qbyki Vicryl suture and was confirmed to be [...] above. Mary Obrien, (more content not included)... Normal [facility] OPERATIVE NO HNO ID: [id number] Author: Pam Wang MD Service: Urogynecology Author Type: Physician Type: Operative Report Filed: 12/28/2021 10:03 AM Note Text: OPERATIVE/PROCEDURE REPORT LOG ID: [id number] SURGERY/PROCEDURE DATE: 12/24/2021 INCISION/PROCEDURE START TIME: 8:50 AM INCISION CLOSE/PROCEDURE END TIME: 1:50 PM SURGEON(S)/PROCEDURALIST( S) AND MANAGER MANAGEMENT(S): Surgeon(s) and Role: Panel 1: * Mary [...] of the (more content not included)... Normal [facility] Type and SCR (30D)on 022 ABO/RH(D) Positive [facility] Comment on above: Performed By: #### T SCR30 ####[facility] [place], [place] [phone] Confirm Blood Typeon 021 ABO/RH(D) Positive Normal [facility] Comment on above: Performed By: #### C ONABO ####[facility] [place], [place] [phone] Type and SCR (30D)on ABO/RH(D) Positive Normal [facility] Comment on above: Performed By: #### T SCR30 ####[facility] [place], [place] [phone] Nonvisit Note - PTon Nonvisit Note - PT Chart reviewed with eval prepped for scheduled eval. [facility]enton 01-08-2021 Consent [id number]#1.00CD:1 27 [facility] Coding Summary.on 01-06-2021 Coding Summary. CODING DATE: FINAL [facility] STATUS: Home (Routine DC) PAYOR: Medicaid [...] Eileen Scott Date Saved: 01/06/2021 09:01 am [facility] Consent for Procedure/Surger yon 01-04-2021 Consent for Procedure/Surgery [id number]#1.00CD:1 [facility] Consent for Procedure/Surgery [id number]#1.00CD:1 27 [facility] Consent for Treatmenton Consent for Treatment [id number]#1.00CD:12 7 Normal [facility] Discharge Instructionson Discharge Instructions [id number]#1.00CD:1 27 Normal [facility] Inpatient Patient Summaryon 01-04-2021 Inpatient Patient Summary [place] [id number] Clinical Summary Person Information Name: MARY LEAL Age: 50 Years : 1970 Sex: Female PCP: Isatu WILLAMS DO Marital Status: Race: White Ethnicity: Non- or Language: Venezuelan Visit Id: Visit Reason: MIXED INCONTINENCE Speciality: Acuity: Enc Type: Outpatient Med Service: Surgery Arrival: 01/04/2021 12:31:00 Discharge: Dispo Type: Address: [address] [place] [phone] Provider Notes: Diagnosis: Problems Active Decreased bladder [...] Documented This Visit Final Med List: acetaminophen-hydrocodone ([place] 5/325 Tab) By Mouth every 6 hours. [...] up: With: Address: When: Clifford OCONNOR [address], [address], [place] [id number] Business (1) Within 2 weeks Comments: Call for followup appointment. Have a great day! Patient Education Information: EU - Cystoscopy with Botox Injection Discharge Instructions (Custom) [facility] IntraOperative Documentson 0 01-04-2021 IntraOperative Documents [id number]#1.00CD:1 27 [facility] IntraOperative Documents [id number]#1.00CD:1 27 [facility] Main OR Intraoperative Recor don 01-04-2021 Main OR Intraoperative Record IntraOp Document Type FTURO Summary Primary Physician: Clifford OCONNOR MD Finalized Date/Time: 01/04/21 13:27:05 Pt. Name: MARY LEALO.B./Sex: 1970 Female Med Rec #: [id number] Physician: Clifford OCONNOR MD Financial #: [id number] Pt. Type: O Room/Bed: / Admit/Disch: 01/04/21 12:31:00 - Institution: Case Times FTURO Entry 1 Patient Times In Room 01/04/21 13:07:00 Out Room 01/04/21 13:27:00 Procedure Times Start 01/04/21 13:19:00 Stop 01/04/21 13:23:00 Anesthesia Times Last Modified By: Niecy Tran RN 01/04/21 13:27:01 Case Attendance FTURO Entry 1 Entry 2 Entry 3 Case Attendee Clifford OCONNOR MD BLOCK FEEDER, Akin Mejias BLOCK FEEDER, Debi Chand Role Performed Surgeon - Primary [...] Case Attendee Niecy Tran RN Role Performed Bean Snipper - Primary Time In 01/04/21 13:07:00 Time Out 01/04/21 13:27:00 Procedure CYSTOSCOPY LOCAL BOTOX INJECTION(.) Comments Last Modified By: Niecy Tran RN 01/04/21 13:27:02 Surgical Procedures FTURO Entry 1 Procedure Description Procedure CYSTOSCOPY LOCAL BOTOX Modifiers . INJECTION Surgeon Description CYSTOSCOPY BOTOX 50 UNITS LOT NUMBER [id number] EXP DATE 08/2023 Primary Procedure Yes Primary Surgeon ANASTASIA BENSON, Clifford Bailey Start 01/04/21 13:19:00 Stop 01/04/21 13:23:00 Anesthesia [...] (If Participants Sha PECK, Akin Cavazos, Applicable) Debi Mejias CST, Barbee RN, Kimberly Y Time Out Complete 01/04/21 [...] By: Niecy Tran RN 01/04/21 13:27 Normal [facility] Main OR Preoperative Recordo n 01-04-2021 Main OR Preoperative Record Holding Area Document Type FTURO Summary Primary Physician: Clifford OCONNOR MD Finalized Date/Time: 01/04/21 13:05:55 Pt. Name: MARY LEAL/Sex: 1970 Female Med Rec #: [id number] Physician: Clifford OCONNOR MD Financial #: [id number] Pt. Type: O Room/Bed: / Admit/Disch: 01/04/21 [...] 12:46 Niecy Tran RN 01/04/21 13:05 Normal [facility] Operative Reporton Operative Report Patient: ERNESTO LAEL Age: 50 years Sex: Female : 1970 [...] even with medication management. Discussed that the administration/instillati on of Botox can also result in urinary [...] arranged, F/U in two weeks. . Normal [facility] Comment on above: Result Comment: Elec tronically Signed By: ANASTASIA BENSON, Clifford Levy.valerie\Date and Time Signed: 01/04/21 13:30 EST Outpatient Surgery Discharge Instructionon 01-04-2021 Outpatient Surgery Discharge Instruction [address] [address] Patient Discharge Instructions PERSON INFORMATION Name: MARY LEAL Date of : 1970 Current Date: 01/04/2021 13:25:41 PHYSICIANS Admitting Physician: Clifford OCONNOR MD Comment: Discharge Diagnosis: MARY LEAL has been given the following list of follow-up instructions, prescriptions, and patient education materials: IF UNABLE TO CONTACT YOUR PHYSICIAN AND YOU FEEL IT IS AN EMERGENCY, GO TO THE NEAREST EMERGENCY ROOM OR CALL 911 Follow up: With: Address: When: Clifford OCONNOR [address], [address], [place] [address] [facility] (1) Within 2 weeks Comments: Call for [...] you have a fever over 100 degrees. I, MARY LEAL, have received the attached patient education materials/instructions and have verbalized understanding: May we do a follow up call? Yes No I was present when discharge instructions were given Patient Signature ___ Date Clinican/Nurse Signature Date You may receive a survey from Leyla Scott asking you to rate your care experience. Your feedback is important and will help us understand what we do well and how we can improve the quality of care we provide to you, your loved ones and our community. It?s an honor to serve you. Thank you for choosing [facility] Normal [facility] PT - Assessmentson 1 PT - Assessments [id number]#1.00CD:1 27 Normal [facility] Ambulatory Clinical Summaryo n 11-11-2020 Ambulatory Clinical Summary {[id number]-ff- 77-29-3m-64-60-t1-c9-f1}C D:[id number] Normal [facility] Patient Educationon 11-11-19 21 Patient Education Family [...] urinary (more content not included)... Normal [facility] Urology Phone Visit- Telehealth HPI [...] only communication with the patient located at [facility] [phone] , with no one else. If it [...] for stricture. Follow-up With When Contact Information Francie BENSON, Dawna Feldman [address] [place] [address] [phone] Additional Instructions: Patient Education Urodynamic Testing Overactive Bladder, Adult I, Christy Gill , personally scribed for Dr. Marmolejo on 10/21/2020 12:00:50. . Documentation recorded by the Christy vaz, accurately reflects the services(s) I performed and [...] urine stream His (more content not included)... [facility] Comment on above: Result Comment: Elec tronically Signed By: Francie BENSON, Dawna Feldman\.br\Date and Time Signed: 11/03/20 11:59 EST\.br\Electronically Co-Signed By: Christy Gill MA\.br\Date and Time Co-Signed: 10/21/20 12:01 EST Coding Summary.on 10-28-2020 Coding Summary. CODING DATE: 020 FINAL [facility] STATUS: Home (Routine DC) PAYOR: Medicaid [...] Eileen Scott Date Saved: 10/28/2020 11:17 am [facility] Ambulatory Clinical Summaryo n 10-27-2020 Ambulatory Clinical Summary {[id number]-f3- vk-b1-b8-03-08-58-c6-e5}C D:[id number] [facility] Consent for Procedure/Surger yon 10-27-2020 Consent for Procedure/Surgery [id number]#1.00CD: 127 [facility] Consent for Treatmenton 10-07 Consent for Treatment [id number]#1.00CD:12 7 [facility] IntraOperative Documentson 1 12-28-2019 IntraOperative Documents [id number]#1.00CD: 127 Normal [facility] Patient Educationon 10-21-20 Patient Education Family Medicine Urodynamic Testing If [...] lab or depar (more content not included)... [facility] PT - Assessmentson 0 PT - Assessments [id number]#1.00CD:1 27 [facility] Nonvisit Note - PTon 020 Nonvisit Note - PT Per voicemail: she n eeds to cancel all of her PT due to personal reasons. KK [facility] Provider Letteron 09-09-2020 Provider Letter (Inserted Image. Jessica ble to display) September 09, 2020 MARY LEAL [address] [place] [address] MARY LEAL 1970 Dear Mary Leal, You missed your scheduled appointment on: 09/09/[address] Marmolejo and the purpose of this letter is [...] appreciate your understanding. Sincerely, [facility] [address], [place] [address] [facility] PT - Assessmentson 0 PT - Assessments [id number]#1.00CD:1 27 [facility] PT - Assessments [id number]#1.00CD:1 27 [facility] PT - Assessmentson 0 PT - Assessments [id number]#1.00CD:1 27 [facility] PT - Consentson 08-31-2020 PT - Consents [id number]#1.00CD:1 27 [facility] Pre-Certification Formon Pre-Certification Form [id number]#1.00CD:12 7 [facility] Pre-Certification Form [id number]#1.00CD:12 7 [facility] Consent for Procedure/Surger yon 08-26-2020 Consent for Procedure/Surgery [id number]#1.00CD:12 7 [facility] Ambulatory Clinical Summaryo n 08-25-2020 Ambulatory Clinical Summary {[id number]-w6-40-7c- 82-cq-5b-66-31-x9-7d-25}C D:[id number] [facility] Patient Educationon 08-25-20 Patient Education Family Medicine [...] an extended amount of time. Only take buxu-mcc-jphbzmx or prescription medicines for pain, discomfort, or [...] Document Reviewed: 09/07/2009 ExitCare? Patient Information ?2013 [employer]. Normal [facility] Urology Office/Clinic Noteon 08-25-2020 Urology Office/Clinic Note [...] months Additional Instructions: Patient Education Interstitial Cystitis IMary, personally scribed for Dr. Marmolejo on 08/25/2020 [...] Alzheimer's disease: Mother. Hypertension: Mother and Father. [facility] Comment on above: Result Comment: Elec tronically Signed By: Dawna Marmolejo MD\.br\Date and Time Signed: 08/25/20 10:06 EDT\.br\Electronically Co-Signed By: Mary Hager\.br\Date and Time Co-Signed: 08/25/20 09:51 EDT Coding Summary.on 08-21-2020 Coding Summary. CODING DATE: 020 FINAL [facility] STATUS: PAYOR: Medicaid EA DESCRIPTION 0271 [...] Raymond CphT Date Saved: 08/21/2020 10:42 am [facility] 08-21-2020 Consent [id number]#1.00CD:12 7 [facility] Ambulatory Clinical Summaryo n 08-19-2020 Ambulatory Clinical Summary {[id number]-2j-47-65- 81-07-60-3o-f7-m0-c8-73}C D:[id number] [facility] Ambulatory Clinical Summary {[id number]-02-3h-7a-3m-4f-26- r3-32-99-76-07-n5-0d-3c}C D:[id number] [facility] Nonvisit Note - PTon 020 Nonvisit Note - PT Chart reviewed for scheduled eval. KK [facility] Patient Educationon 08-19-20 20 Patient Education Family [...] your urinary (more content not included)... Normal [facility]-2020 Urology Phone Visit- Telehealth Chief Complaint [...] only communication with the patient located at [address] [place] [address], with no one else. If it is [...] questions/concerns were discussed. Pt. acknowledges understanding. Ordered: [facility] [place] Ambulatory Referral Urology Procedure Order 2. Dysuria (R30.0: Dysuria) Moderate. Ordered: [facility] External Ambulatory Referral Urology Procedure Order 3. Feeling of incomplete bladder emptying (R39.14: Feeling of incomplete bladder emptying) Pt. does not feel that she is emptying. Ordered: [facility] [place] Urology Procedure Order 4. Weak urine stream (R39.12: Poor urinary stream) Weak stream w/ moderate hesitancy. Ordered: [facility] [place] Ref[place] Urology Procedure Order 5. [...] Will order Local anesthesia. ABX sent to [facility] in [place]. Ordered: [facility] [place] Ambulatory Referral Urology Procedure Order 6. [...] Patient who (more content not included)... Normal [facility] Comment on above: Result Comment: Elec tronically Signed By: Francie BENSON, Dawna Feldman\.br\Date and Time Signed: 08/19/20 08:53 EDT\.br\Electronically Co-Signed By: Christy Gill MA\.br\Date and Time Co-Signed: 08/19/20 08:44 EDT Coding Summary.on 08-12-2020 Coding Summary. CODING DATE: 020 FINAL [facility] STATUS: Home (Routine DC) PAYOR: Medicaid [...] Demi Fried Date Saved: 08/12/2020 09:42 am [facility] Formson 08-11-2020 Forms [id number] [facility] C Urineon 08-09-2020 Bacteria identified Cx Nom (U) Microbiology PROCEDURE: Urine Culture [R1] SOURCE: U Random BODY SITE: COLLECTED DATE/TIME: 08/07/2020 15:46 EDT RECEIVED DATE/TIME: 08/07/2020 17:10 EDT START DATE/TIME: 08/07/2020 17:10 EDT FREE TEXT SOURCE: Francie BENSON, Dawna Marmolejo MD, Dawna Kenny. FINAL REPORTS Final Report [] Verified Date/Time: 08/09/2020 11:56 EDT 500 cfu/ml Mixed skin contaminants Performing Locations R1: This test was performed at: [facility], [address] [place] [address], [facility] , , [facility] Comment on above: Performed By: #### 2 [id number] ####[facility] [address] [place] [address] Ambulatory Clinical Summaryo n 08-07-2020 Ambulatory Clinical Summary {[id number] [facility] Patient Educationon 08-07-20 Patient Education Kegel Exercises The goal of [...] Document Reviewed: 07/18/2013 ExitCare? Patient Information ?2013 [employer], [facility]. Family Medicine Overactive Bladder, Adult The bladder [...] bladder, your (more content not included)... Normal [facility] Urology Office/Clinic Noteon 08-07-2020 Urology Office/Clinic Note Chief Complaint STELLA Vera referred Pt. for urgency and [...] information and history for this patient from DANN King There have been no associated fever, [...] setting of nocturia q2hrs and daytime frequency g3dszzi with painful post void bladder sensation of [...] [address] (more content not included)... Normal [facility] Comment on above: Result Comment: Elec tronically Signed By: Dawna Marmolejo MD\.br\Date and Time Signed: 08/07/20 15:54 EDT\.br\Electronically Co-Signed By: Radha Hare MA\.br\Date and Time Co-Signed: 08/07/20 15:44 EDT Vital Signs Date Time Vital Sign Value Performing Clinician Facility 08-12-2023 07:08-0400 Diastolic blood pressure 65 mm[Hg] Lex Salmon MD Work Phone: [facility] 08-12-2023 07:08-0400 Heart rate 77 /min Lex Salmon MD Work Phone: [facility] 08-12-2023 07:08-0400 SaO2% (BldA) [Mass fraction] 98 % Lex Salmon MD Work Phone: [facility] 08-12-2023 07:08-0400 Systolic blood pressure 132 mm[Hg] Lex Salmon MD Work Phone: [facility] 08-12-2023 06:48-0400 Respiratory rate 13 /min Lex Salmon MD Work Phone: [facility] 08-12-2023 00:25-0400 Body height 162.6 cm Lxe Salmon MD Work Phone: [facility] 08-12-2023 00:25-0400 Body mass index (BMI) [Ratio] 28.01 kg/m2 Lex Salmon MD Work Phone: [facility] 08-12-2023 00:25-0400 Body temperature 97.59 [degF] Lex Salmon MD Work Phone: [facility] 08-12-2023 00:25-0400 Body weight 74.03 kg Lex Salmon MD Work Phone: [facility] 07-31-2023 14:27-0400 Body height 162.6 cm Nelsy Philipped [employer] MACHINE SETTER.[employer]HER Work Phone: [facility] 07-31-2023 14:27-0400 Body weight 69.85 kg Nelsygregory Philipped [employer]UE AND GROOVE MACHINE SETTER.CO[employer] WEIGHER Work Phone: [facility] 07-31-2023 14:27-0400 Diastolic blood pressure 96 mm[Hg] Nelsy Philipped [employer] AND GRO[employer] MACHINE SETTER.COAL WEIGHER Work Phone: [facility] 07-31-2023 14:27-0400 Heart rate 76 /min Nelsy Philipped [employer]UE AND GROOVE MACHINE SETTER.COAL WEIGHER Work Phone: [facility] 07-31-2023 14:27-0400 Systolic blood pressure 136 mm[Hg] Nelsy Wynnegand [employer]UE AND GROOVE MACHINE SETTER.COAL WEIGHER Work Phone: [facility] 06-13-2023 10:37-0400 Body height 162.56 cm Eliceo Willams Work Phone: [facility] 320 DO Work Phone: 06-13-2023 10:37-0400 Body mass index (BMI) [Ratio] 27.46 kg/m2 Eliceo Willams Work Phone: [facility] 320 DO Work Phone: 06-13-2023 10:37-0400 Body surface area Derived from formula 1.78 m2 Eliceo Willams Work Phone: [facility] 320 DO Work Phone: 06-13-2023 10:37-0400 Body weight 72.58 kg Eliceo Willams Work Phone: [facility] 320 DO Work Phone: 06-13-2023 10:37-0400 Diastolic blood pressure 70 mm[Hg] Eliceo Willams Work Phone: [facility] 320 DO Work Phone: 06-13-2023 10:37-0400 Heart rate 70 /min Eliceo Willams Work Phone: [facility] 320 DO Work Phone: 06-13-2023 10:37-0400 Systolic blood pressure 100 mm[Hg] Eliceo Willams Work Phone: [facility] 320 DO Work Phone: 06-13-2023 10:37-0400 11 1 Eliceo Willams Work Phone: [facility] 320 DO Work Phone: Comment on above: PHQ-9 TS 06-05-2023 13:23-0400 Diastolic blood pressure 68 mm[Hg] DO IsatuReno Szymanskijerometomasa Work Phone: [facility] 06-05-2023 13:23-0400 Heart rate 72 /min DO IsatuReno Szymanskileigha Work Phone: [facility] 06-05-2023 13:23-0400 Respiratory rate 18 /min DO IsatuReno Szymanskileigha Work Phone: [facility] 06-05-2023 13:23-0400 SaO2% (BldA) [Mass fraction] 97 % DO IsatuReno Parish Stephonleigha Work Phone: [facility] 06-05-2023 13:23-0400 Systolic blood pressure 129 mm[Hg] DO IsatuReno Parish Willams Work Phone: [facility] 06-05-2023 09:32-0400 Body height 162.56 cm DO Shannon Willams Work Phone: [facility] 06-05-2023 09:32-0400 Body weight 73.9 kg DO Shannon Willams Work Phone: [facility] 06-05-2023 09:31-0400 Body temperature 97.5 [degF] DO Shannon Willams Work Phone: [facility] 01-16-2023 13:18-0400 Body height 162.6 cm [facility] 01-16-2023 13:18-0400 Body weight 68.04 kg [facility] 11-21-2022 08:00-0500 Body height 162.6 cm [facility] 2 Work Phone: [facility] 11-21-2022 08:00-0500 Body weight 64.86 kg [facility] 2 Work Phone: [facility] 10-11-2022 10:08-0500 Body height 162.6 cm Isra Masters DO Work Phone: [facility] 10-11-2022 10:08-0500 Body weight 78.02 kg Isra Galarzae DO Work Phone: [facility] 10-11-2022 10:08-0500 Diastolic blood pressure 97 mm[Hg] Isra Masters DO Work Phone: [facility] 10-11-2022 10:08-0500 Heart rate 89 /min Isra Masters DO Work Phone: [facility] 10-11-2022 10:08-0500 Systolic blood pressure 141 mm[Hg] Isra Masters DO Work Phone: [facility] 10-10-2022 14:30-0500 Body height 162.56 cm Annette Cartagena Other [employer] Other 10-10-2022 14:30-0500 Body mass index (BMI) [Ratio] 28.66 kg/m2 Annette Cartagena Other [employer] Other 10-10-2022 14:30-0500 Body weight 75.75 kg Annette Cartagena Other [employer] Other 07-26-2022 11:13-0400 Body height 162.6 cm Mary Obrien MD Work Phone: [facility] 07-26-2022 11:13-0400 Body temperature 97.5 [degF] Mary Obrien MD Work Phone: [facility] 07-26-2022 11:13-0400 Body weight 77.56 kg Mary Obrien MD Work Phone: [facility] 07-26-2022 11:13-0400 Diastolic blood pressure 83 mm[Hg] Mary Obrien MD Work Phone: [facility] 07-26-2022 11:13-0400 Heart rate 95 /min Mary Obrien MD Work Phone: [facility] 07-26-2022 11:13-0400 SaO2% (BldA) [Mass fraction] 97 % Mary Obrien MD Work Phone: [facility] 07-26-2022 11:13-0400 Systolic blood pressure 110 mm[Hg] Mary Obrien MD Work Phone: [facility] 05-26-2022 11:45-0400 Body height 162.56 cm Annette Harris Other [employer] Other 05-26-2022 11:45-0400 Body mass index (BMI) [Ratio] 29.18 kg/m2 Annette Harris Other [employer] Other 05-26-2022 11:45-0400 Body weight 77.11 kg Annette Harris Other [employer] Other 05-12-2022 09:06-0400 Diastolic blood pressure 80 mm[Hg] Eliceo Willams Work Phone: [facility] 250 DO Work Phone: 05-12-2022 09:06-0400 Systolic blood pressure 126 mm[Hg] Eliceo Willams Work Phone: [facility] 250 DO Work Phone: 05-12-2022 08:57-0400 Body height 162.56 cm Eliceo Willams Work Phone: [facility] 250 DO Work Phone: 05-12-2022 08:57-0400 Body mass index (BMI) [Ratio] 29.87 kg/m2 Eliceo Willams Work Phone: [facility] 250 DO Work Phone: 05-12-2022 08:57-0400 Body surface area Derived from formula 1.84 m2 Eliceo Willams Work Phone: [facility] 250 DO Work Phone: 05-12-2022 08:57-0400 Body weight 78.93 kg Eliceo Willams Work Phone: [facility] DO Work Phone: 05-12-2022 08:57-0400 Diastolic blood pressure 80 mm[Hg] Eliceo Willams Work Phone: [facility] 250 DO Work Phone: 05-12-2022 08:57-0400 Heart rate 68 /min Eliceo Szymanskileigha Work Phone: [facility] 250 DO Work Phone: 05-12-2022 08:57-0400 Systolic blood pressure 130 mm[Hg] Eliceo Szymanskileigha Work Phone: [facility] 250 DO Work Phone: 05-10-2022 12:30-0400 Body height 162.56 cm Allison Arita Other [employer] Other 05-10-2022 12:30-0400 Body mass index (BMI) [Ratio] 29.18 kg/m2 Allison Arita Other [employer] Other 05-10-2022 12:30-0400 Body temperature 97.3 [degF] Allison Arita Other [employer] Other 05-10-2022 12:30-0400 Body weight 77.11 kg Allison Arita Other [employer] Other 05-10-2022 12:30-0400 Respiratory rate 18 /min Allison Arita Other [employer] Other 05-10-2022 12:30-0400 SaO2% (BldA) [Mass fraction] 98 % Allison Arita Other [employer] Other 04-22-2022 12:04-0400 Body height 162.6 cm Jessi Sheets APRN.COAL WEIGHER Work Phone: [facility] 04-22-2022 12:04-0400 Body weight 77.56 kg Jessi Sheets APRN.COAL WEIGHER Work Phone: [facility] 04-22-2022 12:04-0400 Diastolic blood pressure 68 mm[Hg] Jessi Sheets APRN.COAL WEIGHER Work Phone: [facility] 04-22-2022 12:04-0400 Heart rate 76 /min Jessi Sheets APRN.COAL WEIGHER Work Phone: [facility] 04-22-2022 12:04-0400 SaO2% (BldA) [Mass fraction] 98 % Jessi Sheets APRN.COAL WEIGHER Work Phone: [facility] 04-22-2022 12:04-0400 Systolic blood pressure 104 mm[Hg] Jessi Sheets APRN.COAL WEIGHER Work Phone: [facility] 03-15-2022 16:30-0400 Body height 162.56 cm Annette Harris Other [employer] Other 03-15-2022 16:30-0400 Body mass index (BMI) [Ratio] 30.55 kg/m2 Annette Harris Other [employer] Other 03-15-2022 16:30-0400 Body weight 80.74 kg Annette Harris Other [employer] Other 03-15-2022 08:36-0400 Body height 162.6 cm Isra Galarzae DO Work Phone: [facility] 03-15-2022 08:36-0400 Body weight 83.01 kg Isra Masters DO Work Phone: [facility] 03-15-2022 08:36-0400 Diastolic blood pressure 87 mm[Hg] Isra Masters DO Work Phone: [facility] 03-15-2022 08:36-0400 Heart rate 85 /min Isra Masters DO Work Phone: [facility] 03-15-2022 08:36-0400 SaO2% (BldA) [Mass fraction] 100 % Isra Masters DO Work Phone: [facility] 03-15-2022 08:36-0400 Systolic blood pressure 133 mm[Hg] Isra Masters DO Work Phone: [facility] 03-14-2022 10:23-0400 Body height 162.6 cm Pac 4 Work Phone: [facility] 03-14-2022 10:23-0400 Body temperature 97.2 [degF] Pac 4 Work Phone: [facility] 03-14-2022 10:23-0400 Body weight 83.01 kg Pacc 4 Work Phone: [facility] 03-14-2022 10:23-0400 Diastolic blood pressure 76 mm[Hg] Pacc 4 Work Phone: [facility] 03-14-2022 10:23-0400 Heart rate 74 /min Pacc 4 Work Phone: [facility] 03-14-2022 10:23-0400 Respiratory rate 16 /min Pacc 4 Work Phone: [facility] 03-14-2022 10:23-0400 SaO2% (BldA) [Mass fraction] 98 % Pacc 4 Work Phone: [facility] 03-14-2022 10:23-0400 Systolic blood pressure 114 mm[Hg] Pacc 4 Work Phone: [facility] 02-18-2022 09:43-0400 Body height 162.6 cm Nelsy Chávez TONGUE AND GROOVE MACHINE SETTER.COAL WEIGHER Work Phone: [facility] 02-18-2022 09:43-0400 Body weight 80.29 kg Nelsy Chávez TONG[employer] AND GROOVE MACHINE SETTER.COAL WEIGHER Work Phone: [facility] 02-18-2022 09:43-0400 Diastolic blood pressure 70 mm[Hg] Nelsy Chávez [employer]ONG[employer] AND GROOVE MACHINE SETTER.COAL WEIGHER Work Phone: [facility] 02-18-2022 09:43-0400 Systolic blood pressure 110 mm[Hg] Nelsy Chávez TONG[employer] AND GROOVE MACHINE SETTER.COAL WEIGHER Work Phone: [facility] 02-08-2022 14:52-0400 Body height 162.6 cm Mary Obrien MD Work Phone: [facility] 02-08-2022 14:52-0400 Body weight 83.01 kg Mary Obrien MD Work Phone: [facility] 04-05-2022 14:52-0400 Diastolic blood pressure 76 mm[Hg] Mary Obrien MD Work Phone: [facility] 02-08-2022 14:52-0400 Heart rate 79 /min Mary Obrien MD Work Phone: [facility] 02-08-2022 14:52-0400 SaO2% (BldA) [Mass fraction] 97 % Mary Obrien MD Work Phone: [facility] 02-08-2022 14:52-0400 Systolic blood pressure 113 mm[Hg] Mary Obrien MD Work Phone: [facility] 02-08-2022 11:19-0400 Body weight 83.01 kg Magali Mitchell [employer] AND [employer] MACHINE SETTER.[employer] WE[employer]HER Work Phone: [facility] 02-08-2022 11:19-0400 Diastolic blood pressure 76 mm[Hg] Magali Mitchell [employer] AND [employer] MACHINE SETTER.CO[employer] WEIGHER Work Phone: [facility] 02-08-2022 11:19-0400 Heart rate 74 /min Magali Mitchell [employer] AND [employer]OOVE MACHINE SETTER.COAL WEIGHER Work Phone: [facility] 02-08-2022 11:19-0400 Systolic blood pressure 113 mm[Hg] Magali Mitchell TONG[employer] AND GROOVE MACHINE SETTER.COAL WEIGHER Work Phone: [facility] 10-20-2021 09:45-0500 Body height 162.56 cm Annette Harris Other [employer] Other 10-20-2021 09:45-0500 Body mass index (BMI) [Ratio] 31.41 kg/m2 Annette Harris Other [employer] Other 10-20-2021 09:45-0500 Body weight 83.01 kg Annette Harris Other [employer] Other 08-19-2021 17:10-0400 Body height 162.56 cm Erica Kingston Other [employer] Other 08-19-2021 17:10-0400 Body mass index (BMI) [Ratio] 31.24 kg/m2 Erica Kingston Other [employer] Other 08-19-2021 17:10-0400 Body temperature 97.3 [degF] Erica Kingston Other [employer] Other 08-19-2021 17:10-0400 Body weight 82.56 kg Erica Kingston Other [employer] Other 08-19-2021 17:10-0400 Diastolic blood pressure 82 mm[Hg] Erica Kingston Other [employer] Other 08-19-2021 17:10-0400 Respiratory rate 18 /min Erica Kingston Other [employer] Other 08-19-2021 17:10-0400 SaO2% (BldA) [Mass fraction] 98 % Erica Kingston Other [employer] Other 08-19-2021 17:10-0400 Systolic blood pressure 126 mm[Hg] Erica Kingston Other [employer] Other 08-13-2021 10:15-0400 Body height 162.56 cm Tita Ginty Other [employer] Other 08-13-2021 10:15-0400 Body mass index (BMI) [Ratio] 30.89 kg/m2 Tita Ginty Other [employer] Other 08-13-2021 10:15-0400 Body temperature 6 [degF] Tita Ginty Other [employer] Other 08-13-2021 10:15-0400 Body weight 81.65 kg Tita Dat Other [employer] Other 08-13-2021 10:15-0400 SaO2% (BldA) [Mass fraction] 99 % Tita Pinanty Other [employer] Other 07-28-2021 09:30-0400 Body height 162.56 cm Annette Harris Other [employer] Other 07-28-2021 09:30-0400 Body mass index (BMI) [Ratio] 30.89 kg/m2 Annette Harris Other [employer] Other 07-28-2021 09:30-0400 Body weight 81.65 kg Annette Harris Other [employer] Other Encounters Encounter Date Encounter Type Care Provider Facility Start: 10-27-2023 ambulatory EAGLE LEE Not Avail able Start: 10-26-2023 Telephone encounter [facility] Start: 10-26-2023 End: 10-26-2023 ambulatory RON Rivera [employer] Other Start: 10-24-2023 End: 10-24-2023 ambulatory EAGLE LEE Not Available Start: 10-23-2023 End: 10-23-2023 ambulatory [facility] Start: 10-10-2023 End: 10-10-2023 ambulatory PAM WANG Facility:[facility] Start: 10-06-2023 End: 10-06-2023 ambulatory Annette Harris Other [employer] Other Start: 10-06-2023 Telephone encounter [facility] Start: 10-03-2023 End: 10-04-2023 ambulatory ELICEO WILLAMS Not Available Start: 09-27-2023 End: 09-27-2023 ambulatory Pam Wang MD Work Phone: Urogynecology Comment on above: Worsening Start: 09-27-2023 Refill Doris Juana [employer]OWANCO[employer] WEIGHER Work Phone (unformatted): [phone] Urogynecology Comment on above: Med Change Request Start: 09-21-2023 End: 09-21-2023 ambulatory ELICEO WILLAMS Not Available Start: 09-11-2023 End: 09-11-2023 ambulatory PAM WANG Facility:[facility] Start: 08-23-2023 End: 08-23-2023 ambulatory GIANA [facility] Start: 08-12-2023 End: 08-12-2023 Emergency department patient visit LEX SALMON [facility] Start: 08-12-2023 End: 08-12-2023 Emergency department patient visit Lex Salmon MD Work Phone: [facility] Emergency Dept Comment on above: Upper abdominal pain (Primary Dx) Start: 08-09-2023 ambulatory Mary Obrien MD Work Phone: Colorectal Surgery Comment on above: Response Start: 08-07-2023 End: 08-07-2023 ambulatory Mray Obrien MD Work Phone: Colorectal Surgery Comment on above: Colon Start: 08-01-[address] Eliceo Willams Jr Facility: Start: 07-31-2023 End: 07-31-2023 ambulatory NELSY CHÁVEZ Facility:[facility] Start: 07-31-2023 End: 07-31-2023 Patient encounter procedure Nelsy Chávez [employer] MACHINE [employer]TER.[employer]HER Work Phone: URO/Gynecology Comment on above: Incomplete bladder e mptying (Primary Dx); Constipation, unspecified constipation type; Urinary urgency; Urinary frequency; Nocturia Start: 07-25-2023 End: 07-26-2023 ambulatory [facility] Start: 07-17-2023 (Procedure) [facility] Start: 07-17-2023 End: 07-17-2023 ambulatory Annette Harris Other [facility] Other Start: 07-12-2023 End: 07-12-2023 ambulatory Annette Harris Other [facility] Other Start: 07-12-2023 Telephone encounter [facility] Start: 06-13-2023 Office consultation new/estab patient 60 min Eliceo Asiya Dalia Work Phone: -[facility] 320 DO Work Phone: Start: 06-13-[address] Juan Anaya Facility: Start: 06-08-2023 End: 06-08-2023 ambulatory [facility] Start: 06-07-[address] Juan Anaya Facility:[id number] Start: 06-05-2023 End: 06-05-2023 Emergency department patient visit Shannon Willams Facility:[facility] Start: 06-05-2023 End: 06-05-2023 Emergency department patient visit DO IsatuReno Szymanskijerometomasa Work Phone: [facility] Work Phone: Start: 05-31-2023 End: 05-31-2023 ambulatory DEB HART [facility] Start: 05-28-2023 ambulatory Pam rios MD Work Phone: URO/Gynecology Comment on above: Problems with urinat ing Start: 05-22-2023 End: 05-22-2023 ambulatory [facility] Start: 05-17-2023 End: 05-17-2023 ambulatory [facility] Start: 05-17-2023 End: 05-17-2023 ambulatory [facility] Start: 04-26-2023 End: 04-26-2023 ambulatory Annette Harris Other [facility] Other Start: 04-26-2023 Office outpatient vi sit 25 minutes Annette Harris [facility] [place] Start: 04-17-2023 ambulatory [facility] Start: 04-11-2023 Refill Isra S Clin e DO Work Phone: Gastroenterology Comment on above: Refill Request Start: 04-10-2023 ambulatory CAR[facility] Start: 04-04-2023 End: 04-05-[address] Isatu WILLAMS Facility:[facility] Start: 03-20-2023 ambulatory CARMEN [facility] Start: 03-19-2023 ambulatory Isra S Clin e DO Work Phone: Gastroenterology Comment on above: Stool sample results Start: 03-17-2023 End: 03-17-2023 ambulatory Niecy Duron Facility:[facility] Start: 03-17-2023 End: 03-17-2023 ambulatory DO Shannon Willams Work Phone: [facility] Work Phone: Start: 03-17-2023 End: 03-17-2023 Discharged Recurring DO Shannon Willams Work Phone: [facility] [place] Work Phone: Start: 03-16-2023 End: 03-16-2023 ambulatory ELICEO WILLAMS JR Facility:[facility] Start: 03-15-2023 Orders Only Isra S Clin e DO Work Phone: Gastroenterology Comment on above: Diarrhea due to power bsorption (Primary Dx) What lab? Start: 03-06-2023 End: 03-06-[address] Isatu WILLAMS Facility:[facility] Start: 03-06-2023 ambulatory [facility] Start: 02-27-2023 ambulatory CAR[facility] Start: 02-21-2023 End: 02-22-[address] Isatu WILLAMS Facility:[facility] Start: 02-20-2023 ambulatory CARMEN DORSEY [facility] Start: 02-19-2023 End: 02-19-[address] Isatu WILLAMS Facility:[facility] Start: 02-16-2023 End: 02-16-2023 ambulatory [facility] Start: 02-13-2023 [facility] Start: 02-06-2023 ambulatory [facility] Start: 02-02-2023 End: 02-02-2023 ambulatory [facility] Start: 01-31-2023 End: 02-01-2023 ambulatory NIECY KAREEM Facility:[facility] Start: 01-27-2023 End: 01-27-[address] Isatu WILLAMS Facility:[facility] Start: 01-23-2023 ambulatory [facility] Start: 01-20-2023 ambulatory Winston chand DO Work Phone: General Surgery Comment on above: Clarification Start: 01-19-2023 ambulatory Winston chand DO Work Phone: General Surgery Comment on above: General Start: 01-16-2023 Encounter for other preprocedural examination WINSTON HANNAH [facility] Start: 01-16-2023 Telephone encounter Mounika farrell PA-C Work Phone: Pre Anesthesia Comment on above: Appointment (Pt has not arrived for her 1 pm appointment) Start: 01-16-2023 End: 01-16-2023 Admission to establishment [facility] Start: 01-16-2023 End: 01-16-2023 ambulatory WINSTON HANNAH [...] End: 01-10-2023 Telemedicine consultation with patient Winston Hannah DO Work Phone: [employer] Start: 01-06-2023 End: 01-06-2023 ambulatory ANNETTE SWANSON [facility] Start: 01-02-2023 End: 01-02-2023 ambulatory CARMEN DORSEY [facility] Start: 12-28-2022 ambulatory Yoni Tuttle MD Work Phone: NEUROLOGY Comment on above: No response Start: 12-26-2022 End: 12-26-2022 ambulatory WINSTON Zoya BRIELLE Facility:[facility] Start: 12-26-2022 End: 12-26-2022 Subsequent hospital visit [...] with patient Winston Hannah DO Work Phone: [employer] Start: 12-21-2022 End: 12-22-2022 ambulatory SADE WILDE Facility: Start: 12-15-2022 End: 12-15-2022 ambulatory ELICEO WILLAMS JR Facility:[facility] Start: 12-15-2022 End: 12-15-2022 Manual pelvic examination Mary Obrien MD Work Phone: Colorectal Surgery Comment on above: Colonic inertia (Phoebe unique Dx); Pelvic floor dysfunction; Nausea; Gastroparesis Start: 12-15-2022 End: 12-15-2022 Telemedicine consultation with patient Mary Obrien MD Work Phone: TIA Rios ANDRY REPLACED BY [facility] Start: 12-14-2022 ambulatory Yoni Tuttle MD Work Phone: NEUROLOGY Comment on above: Right number? Start: 12-12-2022 ambulatory CARMEN KAILA [facility] Start: 12-09-2022 End: 12-09-2022 ambulatory Mary Obrien MD Work Phone: Colorectal Surgery Comment on above: Colon Start: 12-09-2022 Telephone encounter Mary brewer MD Work Phone: Colorectal Surgery Comment on above: Patient Question Start: 12-08-2022 Telephone encounter Isra S Masters DO Work Phone: Gastroenterology Comment on above: Results (Sigmoidosco py results; patient questions) Start: 12-07-2022 ambulatory Winston chand DO Work Phone: General Surgery Comment on above: Carafate Start: 12-06-2022 ambulatory Isra S Clin e DO Work Phone: Gastroenterology Comment on above: Results Start: 12-05-2022 ambulatory Winston chand DO Work Phone: [facility] Start: 12-02-2022 ambulatory Isra S Clin e DO Work Phone: [facility] Start: 12-02-2022 Telephone encounter Yoni Tuttle MD Work Phone: Neurology Comment on above: Returning Nurse Call Start: 12-01-2022 End: 12-02-2022 ambulatory NIECY KAREEM Facility: Start: 11-30-2022 End: 11-30-2022 ambulatory ELICEO WILLAMS JR Facility:[facility] Start: 11-30-2022 End: 11-30-2022 ambulatory Isra Masters DO Work Phone: Gastroenterology Comment on above: Chronic idiopathic c onstipation (Primary Dx); Nausea Start: 11-30-2022 End: 11-30-2022 Telemedicine consultation with patient Isra Masters DO Work Phone: [facility] YANCI STARK Start: 11-30-2022 End: 11-30-2022 ambulatory CARMEN KAILA [facility] Start: 11-24-2022 End: 11-25-2022 ambulatory Isra Masters DO Work Phone: Gastroenterology Comment on above: SMART PILL RESULTS Approval for upcomin g pap titration test Start: 11-24-2022 Telephone encounter Yoni Tuttle MD Work Phone: Neurology Comment on above: Is PA Needed for PAP Titration Start: 11-23-2022 End: 11-23-2022 ambulatory CARMEN DORSEY [facility] Start: 11-22-2022 Telephone encounter Isra Masters DO Work Phone: Gastroenterology Comment on above: Patient Update Start: 11-21-2022 End: 11-21-2022 ambulatory Yoni Tuttle MD Work Phone: Pre Anesthesia Comment on above: Pre-op exam (Primary Dx); Primary hypertension; Mild persistent asthma without complication; Gastroparesis; CHUCKIE (obstructive sleep apnea) Orders Start: 11-21-2022 Encounter for other preprocedural examination WINSTON HANNAH [facility] Start: 11-21-2022 End: 11-21-2022 Admission to establishment Pac Tevin Guzman 2 Work Phone: CC TEVIN REPLACED BY [facility] Start: 11-21-2022 End: 11-21-2022 Preprocedural examination done Pac 2 Work Phone: Pre Anesthesia Start: 11-18-2022 End: 11-18-2022 ambulatory ANNETTE SWANSON [facility] Start: 11-17-2022 End: 11-17-2022 ambulatory Annmarie Gillespie RNdiving board assembler Start: 11-17-2022 Patient encounter procedure Annmarie Gillespie RN [facility] Start: 11-17-2022 End: 11-17-2022 Subsequent hospital visit by physician Capsule Work Phone: Gastroenterology Start: 11-16-2022 End: 11-16-2022 ambulatory Yoni Tuttle MD Work Phone: NEUROLOGY Comment on above: The delay Start: 11-15-2022 ambulatory Yoni Tuttle MD Work Phone: NEUROLOGY Comment on above: Labs Start: 11-14-2022 End: 11-15-2022 ambulatory NIECY DURON Facility:[facility] Start: 11-10-2022 Telephone encounter Annmarie Gillespie RNdiving board assembler Comment on above: Preparations For Pro cedures Start: 11-10-2022 End: 11-11-2022 ambulatory NIECY DURON Facility:[facility] Start: 11-09-2022 Telephone encounter Yoni Tuttle MD Work Phone: Neurology Comment on above: Orders (SENT PATIENT S IRON RX ) Patient Update Start: 11-04-2022 ambulatory [facility] Start: 11-04-2022 End: 11-04-2022 ambulatory [facility] Start: 11-02-2022 Telephone encounter Yoni Tuttle MD Work Phone: Neurology Comment on above: Results - Sleep Stud y Start: 10-31-2022 ambulatory Yoni Tuttle MD Work Phone: NEUROLOGY Comment on above: Iron test Smart pill Start: 10-24-2022 Telephone encounter Isra Masters DO Work Phone: Gastroenterology Comment on above: Patient Question Start: 10-23-2022 Encounter for preprocedural laboratory examination SADE WILDE [facility] Start: 10-20-2022 End: 10-20-2022 ambulatory Isra Masters [...] Start: 10-14-2022 End: 10-14-2022 ambulatory Annette Cartagena Facility:[facility] Start: 10-14-2022 End: 10-14-2022 ambulatory DO Shannon Willams Work Phone: [facility] Work Phone: Start: 10-14-2022 End: 10-14-2022 Discharged Recurring DO Shannon Willams Work Phone: [facility] [place] Work Phone: Start: 10-13-2022 End: 10-14-2022 ambulatory SADE WILDE Facility:[facility] Start: 10-13-2022 End: 10-14-2022 Encounter for preprocedural laboratory examination [facility] Zoya [facility] Facility:[facility] Start: 10-11-2022 End: 10-11-2022 ambulatory Annette Cartagena Other [employer] Other Start: 10-11-2022 Telephone encounter Annette Cartagena [employer] Start: 10-11-2022 End: 10-11-2022 Patient encounter procedure Isra Masters DO Work Phone: Gastroenterology Comment on above: Gas bloat syndrome ( Primary Dx); Chronic idiopathic constipation; Gastroparesis Start: 10-10-2022 End: 10-10-2022 ambulatory Annette Cartagena Other [employer] Other Start: 10-10-2022 Office outpatient ne w 30 minutes Annette Catragena [facility] Start: 10-06-2022 End: 10-06-2022 ambulatory Annette Harris Other [employer] Other Start: 10-06-2022 Patient encounter procedure Annette Harris [facility] [place] Start: 09-28-2022 Encounter for other preprocedural examination [facility] Start: 09-28-2022 Encounter for preprocedural cardiovascular examination [facility] Start: 09-26-2022 End: 09-27-2022 ambulatory [facility] Facility:[facility] Start: 09-22-2022 Office outpatient vi sit 25 minutes Annette Harris [facility] [place] Start: 09-22-2022 Telephone encounter Annette Lunsford [facility] [place] Start: 09-22-2022 End: 09-22-2022 ambulatory DO Shannon Willams Work Phone: [employer] Other Start: 09-22-2022 End: 09-22-2022 Patient encounter procedure DO Shannon Willams Work Phone: [facility] Start: 09-14-2022 End: 09-14-2022 ambulatory Eliceo Willams Other [employer] Other Start: 09-14-2022 Encounter by sierra Willams [facility] [place] Start: 09-14-2022 Office outpatient vi sit 15 minutes Annette Harris [facility] [place] Start: 09-14-2022 Telephone encounter Annette [facility] Start: 08-16-2022 ambulatory Mary Obrien MD Work Phone: Colorectal Surgery Comment on above: CT results Ct scan result quest ion Start: 08-16-2022 E-mail encounter fro m caregiver Mary Obrien MD Work Phone: [facility] Start: 08-12-2022 End: 08-12-2022 Subsequent hospital visit by physician Jahaira Prep [facility] Start: 07-27-2022 End: 07-28-2022 ambulatory [facility] Facility:[facility] Start: 07-26-2022 Telephone encounter Isra Masters DO Work Phone: Gastroenterology Comment on above: Medication Problem; Medication 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 (PA for Dexlansoprazole) Start: 07-26-2022 End: 07-26-2022 Patient encounter procedure Mary Obrien MD Work Phone: Colorectal Surgery Comment on above: Follow-up examinatio n after colorectal surgery (Primary Dx); Periumbilical abdominal pain; Outlet dysfunction constipation; Colonic inertia Start: 06-08-2022 (Procedure) Short Annette Harris [facility] Start: 06-08-2022 End: 06-08-2022 ambulatory Annette Harris Other [employer] Other Start: 05-30-2022 Refill Mary Obrien MD Work Phone: Colorectal Surgery Comment on above: Refill Request Start: 05-26-2022 End: 05-26-2022 ambulatory Annette Harris Other [employer] Other Start: 05-26-2022 Office outpatient vi sit 25 minutes Annette Pradeeptonia [facility] [place] Start: 05-12-2022 Office consultation new/estab patient 60 min Eliceo Willams Work Phone: [facility] [place] [id number] DO Work Phone: Start: 05-10-2022 End: 05-10-2022 ambulatory Allison Arita Other [employer] Other Start: 05-10-2022 Office outpatient vi sit 15 minutes Allison Arita [facility] Start: 05-03-2022 Telephone encounter Mary brewer MD Work Phone: Colorectal Surgery Comment on above: 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 Facility: Start: 04-07-2022 Telephone encounter Rachael Kenny [facility] Comment on above: PostOp Follow-up Start: 03-22-2022 Telephone encounter Mary brewer MD Work Phone: Colorectal Surgery Comment on above: Patient Question Start: 03-15-2022 End: 03-15-2022 ambulatory Annette Harris Other [employer] Other Start: 03-15-2022 Office outpatient vi sit 15 minutes Annette Harris [facility] [place] Start: 03-15-2022 Telephone encounter Mary brewer MD Work Phone: Colorectal Surgery Comment on above: Registered Land Surveyor - [employer]r Medication Preauthor ization (PA for Dexilant renewal) Outside Labs Results Start: 03-15-2022 End: 03-15-2022 Patient encounter procedure Isra Masters DO Work Phone: Gastroenterology Comment on above: Gastroesophageal ref lux disease, unspecified whether esophagitis present; Chronic idiopathic constipation Start: 03-14-2022 End: 03-14-2022 [facility] 4 Work Phone: Pre Anesthesia Comment on above: Preop examination (P rimary Dx); Attention to ileostomy ([facility]); Primary hypertension; Gastroparesis; Gastroesophageal reflux disease, unspecified whether esophagitis present; Mild persistent asthma without complication; Bipolar 1 disorder ([facility]); Obesity (BMI 30.0-34.9) Start: 03-14-2022 End: 03-14-2022 Preprocedural examination done [facility] 4 Work Phone: Pre Anesthesia Start: 02-28-2022 Telephone encounter Isra Masters DO Work Phone: Gastroenterology Comment on above: Appointment (for scr ipt refill) Start: 02-18-2022 End: 02-18-2022 Patient encounter procedure Nelsy Chávez TONGUE AND GROOVE MACHINE SETTER.COAL WEIGHER Work Phone: URO/Gynecology Comment on above: Postoperative state (Primary Dx) Start: 02-11-2022 End: 02-11-2022 ambulatory Flaca Bartholomew PT Work Phone: [place] Start: 02-11-2022 End: 02-11-2022 Follow-up encounter Flaca Bartholomew PT Work Phone: [facility] Comment on above: Pelvic floor dysfunc tion (Primary Dx); Lack of coordination; Follow-up examination after colorectal surgery Start: 02-09-2022 (Procedure) Short Annette Harris [facility] Start: 02-09-2022 End: 02-09-2022 ambulatory Annette Harris Other [employer] Other Start: 02-08-2022 End: 02-08-2022 Patient encounter procedure Mary Obrien MD Work Phone: Colorectal Surgery Comment on above: Follow-up examinatio n after colorectal surgery (Primary Dx) Post-operative state (Primary Dx); Yeast infection of the skin Start: 02-01-2022 Refill Isra S Clin e DO Work Phone: Gastroenterology Comment on above: Refill Request (dexl ansoprazole) Start: 01-31-2022 End: 01-31-2022 ambulatory Newton Woodward PT Work Phone: [facility] Start: 01-31-2022 End: 01-31-2022 Follow-up encounter Newton Woodward PT Work Phone: [facility] Comment on above: Pelvic floor dysfunc tion (Primary Dx); Lack of coordination; Follow-up examination after colorectal surgery Start: 11-25-2021 End: 11-25-2021 ambulatory Annette Harris Other [employer] Other Start: 11-25-2021 Office outpatient vi sit 25 minutes Annette Harris [facility] [place] Start: 11-17-2021 End: 11-18-2021 ambulatory PARISH WILLAMS [facility] Start: 10-20-2021 End: 10-20-2021 ambulatory Annette Harris Other [employer] Other Start: 10-20-2021 Office outpatient vi sit 25 minutes Annette Harris [facility] [place] Start: 10-13-2021 (Procedure) Short Annette Harris [facility] Start: 10-13-2021 End: 10-13-2021 ambulatory Annette Harris Other [employer] Other Start: 09-06-2021 Office outpatient vi sit 25 minutes Annette Harris [facility] [place] Start: 08-19-2021 Office outpatient vi sit 15 minutes Erica Kingston [facility] Start: 08-13-2021 Office outpatient vi sit 15 minutes Tita Daugherty [facility] Start: 08-12-2021 Office outpatient vi sit 25 minutes Annette Harris [facility] [place] Start: 07-28-2021 Office outpatient vi sit 25 minutes Annette Harris [facility] [place] Procedures Date Procedure Procedure Detail Performing Clinician Start: 10-23-2023 Follow-up visit Follow-up PAULINE CHRISTENSEN Start: 08-12-2023 Assay of troponin quantitative Lev Ritter APRN [employer] Work Phone: Start: 08-12-2023 Ct abdomen & pelvis w/contrast material Lev Ritter APRN [employer] WEIGHER Work Phone: Start: 08-12-2023 Urnls dip stick/tabl et reagent auto microscopy Lex Salmon MD Work Phone: Start: 08-12-2023 Basic metabolic pane l calcium total Lex Salmon MD Work Phone: Start: 08-12-2023 DARK GREEN TOP Lex buitrago MD Work Phone: Start: 08-12-2023 GOLD TOP Lex urbina MD Work Phone: Start: 08-12-2023 Hepatic function panel Lev Ritter APRN [employer] Work Phone: Start: 08-12-2023 LIGHT BLUE TOP Lex buitrago MD Work Phone: Start: 08-12-2023 RAINBOW DRAW Lex urbina MD Work Phone: Start: 08-12-2023 Urine test visual color cmprsn meths Lex Salmon MD Work Phone: Start: 08-12-2023 Ecg routine ecg w/le ast 12 lds trcg only w/o i&r Lex Salmon MD Work Phone: Start: 07-31-2023 Urnls dip stick/tabl et rgnt auto w/o microscopy Nelsy Chávez APRN.COAL WEIGHER Work Phone: Start: 06-05-2023 Plain chest X-ray DO Shannon Willams Work Phone: Start: 03-02-2023 Aerobic microbial culture DO Shannon Willams Work Phone: Start: 12-26-2022 Radiologic exam esop hagus single contrast study Winston Kenny Brielle DO Work Phone: Start: 09-22-2022 Plain X-ray of bilat eral shoulders DO Shannon Willams Work Phone: Start: 09-22-2022 X-ray of both knees DO Shannon Willams Work Phone: Start: 09-14-2022 Mammography Lex rincon MD Work Phone: Start: 03-02-2022 Lipid 1996 panel - S jay or Plasma Nelsy Chávez APRN.COAL WEIGHER Work Phone: Start: 02-08-2022 Urnls dip stick/tabl et rgnt auto w/o microscopy Magali Mitchell TONGUE AND GROOVE MACHINE SETTER.COAL WEIGHER Work Phone: Start: 12-16-2021 Antibody screen Comment on above: Performed By: #### T [id number] ####[facility] [place], [place] [id number] Start: 10-15-2021 Antibody screen Comment on above: Performed By: #### T SCR30 ####[place] [id number] [place], [place] [id number] Start: 06-28-2021 Mammography Mary brewer MD Work Phone: Colonoscopy Eliceo Willams Work Phone: Hysterectomy Eliceo Willams Work Phone: Ligation of fallopian tube G eorbahman Willams Work Phone: Operation on colon Eliceo Willams Work Phone: Operation on rectum Eliceo Willams Work Phone: Operative procedure on foot Eliceo Willams Work Phone: Operative procedure on hand Eliceo Willams Work Phone: Operative procedure on knee Eliceo Willams Work Phone: Procedure on neck Eliceo roberson Work Phone: Repair of musculoten dinous cuff of shoulder Eliceo Willams Work Phone: Tonsillectomy and adenoidectomy Eliceo Willams Work Phone: Plan of Treatment Date Care Activity Detail Author Start: 06-22-2030 Administration of diphtheria + tetanus + acellular pertussis vaccine DTAP/TDAP/TD VACCINE (2 - Td or Tdap) [facility] Start: 06-22-2030 Urine microalbumin profile DTaP,Tdap,Td Vaccine (2 - Td or Tdap) [facility] Start: 12-05-2027 COLORECTAL CANCER SCREENING COLORECTAL CANCER SCREENING [facility] Start: 12-05-2027 SIGMOIDOSCOPY SIGMOIDOSCOPY [facility] Start: 03-02-2027 Lipid 1996 panel - S jay or Plasma Lipid Screening [facility] Start: 03-02-2027 LIPID SCREEN LIPID SCREEN [facility] Start: 04-05-2025 DIABETES SCREEN DIABETES SCREEN [facility] Start: 04-05-2025 Diabetes Screening Diabetes Screenin g [facility] Start: 03-14-2025 DIABETES SCREEN DIABETES SCREEN [facility] Start: 12-26-2024 DIABETES SCREEN DIABETES SCREEN [facility] Start: 09-27-2023 End: 12-27-2023 Bacteria identified in Urine by Culture URINE CULTURE Microbiology Routine Burning with urination Expected: 09/27/2023, Expires: 12/27/2023 [facility] Work Phone: Comment on above: Expected: 09/27/2023 , Expires: 12/27/2023 Start: 09-14-2023 Screening for malign ant neoplasm of breast MAMMOGRAM [facility] Start: 08-01-2023 FUV, Provider: Juan Anaya, Status: Pen, Time: 11:00 AM FUV, Provider: Juna Anaya, Status: Pen, Time: 11:00 AM [facility] [address] DO Work Phone: Start: 07-07-2023 Covid-19 Vaccine ( season) Covid-19 Vaccine ( season) [facility] Start: 07-07-2023 Influenza vaccination C [facility] Start: 07-07-2023 Influenza vaccinatio n given INFLUENZA VACCINE (#1) [facility] Start: 06-05-2023 [facility] Start: 04-22-2023 BP CONTROLLED (<130/80) BP CONTROLLE D (<130/80) [facility] Start: 03-14-2023 BP CONTROLLED (<130/80) BP CONTROLLE D (<130/80) [facility] Start: 02-18-2023 BP CONTROLLED (<130/80) BP CONTROLLE D (<130/80) [facility] Start: 02-08-2023 BP CONTROLLED (<130/80) BP CONTROLLE D (<130/80) [facility] Start: 01-18-2023 BP CONTROLLED (<130/80) BP CONTROLLE D (<130/80) [facility] Start: 11-06-2022 DEPRESSION ASSESSMENT DEPRESSION ASS ESSMENT [facility] Start: 09-22-2022 [facility] Start: 08-02-2022 End: 08-25-2023 Ct abdomen & pelvis w/contrast material CT ABD/PEL W IVCON Radiology Routine Periumbilical abdominal pain Expected: 08/02/2022, Expires: 08/25/2023 [facility] Work Phone: Comment on above: Expected: 08/02/2022 , Expires: 08/25/2023 Start: 07-07-2022 Influenza vaccination C [facility] Start: 06-28-2022 Mammography [facility] Start: 2022 COVID-19 VACCINE (4 - Booster for Pfizer series) COVID-19 VACCINE (4 - Booster for Pfizer series) [facility] Start: 2022 SHINGRIX VACCINE (1 of 2) SHINGRIX VACCINE (1 of 2) [facility] Start: 2022 Zoster vaccine hzv l annika for subcutaneous use ZOSTER (SHINGLES) VACCINE (1 of 2) [facility] Start: 04-01-2022 End: 06-01-2022 CBC W Auto Differential panel - Blood CBC + DIFF Lab Routine Follow-up examination after colorectal surgery Expected: 04/01/2022, Expires: 06/01/2022 [facility] Work Phone: Comment on above: Expected: 04/01/2022 , Expires: 06/01/2022 Start: 04-01-2022 End: 06-01-2022 Comprehensive metabolic 2000 panel - Serum or Plasma COMP METABOLIC PANEL Lab Routine Follow-up examination after colorectal surgery Expected: 04/01/2022, Expires: 06/01/2022 [facility] Work Phone: Comment on above: Expected: 04/01/2022 , Expires: 06/01/2022 Start: 04-01-2022 End: 06-01-2022 TYPE AND SCREEN,30 DAY TYPE AND SCREEN,30 DAY Blood Bank Routine Follow-up examination after colorectal surgery Expected: 04/01/2022, Expires: 06/01/2022 [facility] Work Phone: Comment on above: Expected: 04/01/2022 , Expires: 06/01/2022 Start: 01-19-2022 COVID-19 VACCINE (4 - Booster for Pfizer series) COVID-19 VACCINE (4 - Booster for Pfizer series) [facility] Start: 01-19-2022 COVID-19 VACCINE (4 - Pfizer series) COVID-19 VACCINE (4 - Pfizer series) [facility] Start: 11-06-2021 DEPRESSION ASSESSMENT DEPRESSION ASS ESSMENT [facility] Start: 07-07-2021 Influenza vaccination INFLUENZA (#1) [facility] Start: 2017 COLOGUARD (FIT-DNA) COLOGUARD (FIT-D NA) [facility] Start: 2017 Colonoscopy COLONOSCOPY [facility] Start: 2017 COLORECTAL CANCER SCREENING COLORECTAL CANCER SCREENING [facility] Start: [address] COLONOGRAPHY [facility] Start: 2017 FECAL OCCULT BLOOD FECAL OCCULT BLOO D [facility] Start: 2017 LIPID SCREEN LIPID SCREEN [facility] Start: 2017 Screening for malign ant neoplasm of colon [facility] Start: 2017 SIGMOIDOSCOPY SIGMOIDOSCOPY [facility] Start: 2012 Mammography MAMMOGRAM [facility] Start: 10-11-2008 Hepatitis B Vaccine (3 of 3 - 19+ 3-dose series) Hepatitis B Vaccine (3 of 3 - 19+ 3-dose series) [facility] Start: 2002 HPV TESTING HPV TESTING [facility] Start: 1993 PAP TESTING PAP TESTING [facility] Start: 1991 Urine microalbumin profile [facility] Start: 1990 ANNUAL PCP TEAM BONE CHAR PULLER ALEKSANDAR DISEASE VISIT ANNUAL PCP TEAM CHRONIC DISEASE VISIT [facility] Start: 1990 ANNUAL WELLNESS VISIT ANNUAL WELLNES S VISIT [facility] Start: 1990 BP CONTROLLED (<130/80) BP CONTROLLE D (<130/80) [facility] Start: 1990 HEPATITIS C SCREENING HEPATITIS C SC REENING [facility] Start: 1990 HIV SCREENING HIV SCREENING [facility] Start: 1984 Adult depression screening assessment DEPRESSION SCREENING [facility] Start: 1984 Depression screening using PHQ-9 (Patient Health Questionnaire 9) score DEPRESSION SCREENING [facility] Start: 1978 PNEUMOCOCCAL (1 - PCV) PNEUMOCOCCAL (1 - PCV) [facility] Start: 1978 Pneumococcal vaccination Pneum ococcal Vaccine (1 - PCV) [facility] Start: 1972 HEPATITIS B (1 of 3 - 3-dose series) HEPATITIS B (1 of 3 - 3-dose series) [facility] Start: 1972 Hepatitis B Vaccine (1 of 3 - 3-dose series) Hepatitis B Vaccine (1 of 3 - 3-dose series) [facility] Start: 1972 HPV/COTEST HPV/COTEST [facility] Start: 1972 Screening for malign ant neoplasm of cervix [facility] 12 lead ECG EKG 12 lead ECG REYNA 08/12/2023 12:28 AM ED [place] Work Phone: CT Abdomen and Pelvi s W contrast IV CT Abdomen / Pelvis With IV Contrast ONLY Imaging STAT 08/12/2023 5:42 AM [employer] End: 01-12-2024 EGD - THERAPEUTIC, EUS, OR TUBE INTERVENTIONS EGD - THERAPEUTIC, EUS, OR TUBE INTERVENTIONS Endoscopy Routine Gastroparesis 1 Occurrences starting 01/11/2023 until 01/12/2024 [facility] Work Phone: Comment on above: 1 Occurrences starti ng 01/11/2023 until 01/12/2024 FAT, FECAL QUAL FAT, FECAL QUAL Lab Routine Diarrhea due to malabsorption Ordered: 03/15/2023 [facility] Work Phone: Comment on above: Ordered: 03/15/2023 End: 10-11-2023 Gi transit & pres ravinder wireless capsule w/interp CAPSULE ENDOSCOPY SMART Endoscopy Routine Gastroparesis 1 Occurrences starting 10/11/2022 until 10/11/2023 [facility] Work Phone: Comment on above: 1 Occurrences starti ng 10/11/2022 until 10/11/2023 End: 12-17-2023 PAP TITRATION PSG (CPAP, BIPAP, ASV) PAP TITRATION PSG (CPAP, BIPAP, ASV) Procedures Routine CHUCKIE (obstructive sleep apnea) 1 Occurrences starting 11/17/2022 until 12/17/2023 [facility] Work Phone: Comment on above: 1 Occurrences starti ng 11/17/2022 until 12/17/2023 Patient Education Chest Pain, Adult ED [facility] Work Phone: Patient referral [facility] Work Phone: SARS-CoV-2 (COVID-19 ) RNA [Presence] in Respiratory specimen by JOSÉ MIGUEL with probe detection SELF CHECK COVID Microbiology Routine Follow-up examination after colorectal surgery Ordered: 02/09/2022 [facility] Work Phone: Comment on above: Ordered: 02/09/2022 End: 11-30-2023 SIGMOIDOSCOPY SIGMOIDOSCOPY Endoscopy Routine Chronic idiopathic constipation 1 Occurrences starting 11/30/2022 until 11/30/2023 [facility] Work Phone: Comment on above: 1 Occurrences starti ng 11/30/2022 until 11/30/2023 End: 08-12-2023 Troponin I.cardiac [Mass/volume] in Serum or Plasma Troponin I (One time) Lab Timed Once for 1 Occurrences starting 08/12/2023 until 08/12/2023 [facility] Work Phone: Comment on above: Once for 1 Occurrenc es starting 08/12/2023 until 08/12/2023 URODYNAMICS WHI URODYNAMICS WHI Procedures Routine Incomplete bladder emptying Urinary urgency Urinary frequency Nocturia Ordered: 07/31/2023 [facility] Work Phone: Comment on above: Ordered: 07/31/2023 [facility] Immunizations Immunization Date Immunization Notes Care Provider Shante rai 08-17-2022 influenza virus vaccine, unspecified formulation Nelsy Chávez APRN.[employer] Work Phone: [facility] 11-24-2021 Pfizer-BioNTech COVID-19 Vacc 30 MCG/0.3ML Intramuscular Suspension Eliceo Willams Work Phone: [facility] Work Phone: 08-19-2021 KENALOG - 10 mg [employer] Other [employer] Other 05-11-2021 Pfizer-BioNTech COVID-19 Vacc 30 MCG/0.3ML Intramuscular Suspension Eliceo Willams Work Phone: [facility] 250 DO Work Phone: 04-20-2021 Pfizer-BioNTech COVID-19 Vacc 30 MCG/0.3ML Intramuscular Suspension Eliceo Willams Work Phone: [facility] DO Work Phone: 09-02-2020 influenza, injectabl e, quadrivalent, preservative free Eliceo Willams Work Phone: [facility] 250 DO Work Phone: 08-06-2020 influenza, injectabl e, quadrivalent, preservative free Eliceo Willams Work Phone: [facility] 250 DO Work Phone: 06-22-2020 tetanus toxoid, redu nayeli diphtheria toxoid, and acellular pertussis vaccine, adsorbed Eliceo Willams Work Phone: [facility] Work Phone: 02-01-2020 Toradol per [address] Other [employer] Other 07-15-2018 influenza, seasonal, injectable, preservative free Eliceo Willams Work Phone: [facility] 250 DO Work Phone: 07-14-2016 Rocephin 500 mg Annette ellis Other [facility] [employer] Other 05-12-2008 hepatitis B vaccine, adult dosage Eliceo Willams Work Phone: [facility] 250 DO Work Phone: 04-11-2008 hepatitis B vaccine, adult dosage Eliceo Willams Work Phone: -[facility] 250 DO Work Phone: Payers Date Payer Category Payer Self-pay [id number] 2021 Medicaid [place] [employer] [employer] MEDICAID [id number] 2021-[facility] [phone] [address] [place] [address] Medicaid [id number] 2021 Medicaid [id number] [id number]. [id number] 1972 Unknown [id number] 2.16.840.1.700757.3.579.2.176 1972 Unknown [id number] 2.16.840.1.545268.3.579.2.593 1972 Unknown [id number] 2.16.840.1.950604.3.579.2.593 1972 Unknown [id number] 2.16.840.1.086910.3.579.2.593 1972 Unknown [id number] 2.16.840.1.585521.3.579.2.593 1972 Unknown [id number] 2.16.840.1.632086.3.579.2.593 1972 Unknown [id number] 2.16.840.1.121699.3.579.2.593 1972 Unknown [id number] 2.16.840.1.084743.3.579.2.593 1972 Unknown [id number] 2.16.840.1.639267.3.579.2.593 1972 Unknown [id number] 2.16.840.1.495398.3.579.2.593 1972 Unknown [id number] 2.16.840.1.681330.3.579.2.593 1972 Unknown [id number] 2.16.840.1.829313.3.579.2.593 1972 Unknown [id number] 2.16.840.1.649657.3.579.2.593 1972 Unknown [id number] 2.16.840.1.800742.3.579.2.593 1972 Unknown [id number] 2.16.840.1.393098.3.579.2.593 1972 Unknown [id number] 2.16.840.1.203231.3.579.2.593 1972 Unknown [id number] 2.16.840.1.485935.3.579.2.593 1972 Unknown [id number] 2.16.840.1.347904.3.579.2.593 1972 Unknown [id number] 2.16.840.1.676461.3.579.2.297 1972 Unknown [id number] 2.16.840.1.432896.3.579.2.297 1972 Unknown [id number] 2.16.840.1.826453.3.579.2.356 1972 Unknown [id number] 2.16.840.1.791183.3.579.2.356 1972 Unknown [id number] 2.16.840.1.294501.3.579.2.356 1972 Unknown [id number] 2.16.840.1.828180.3.579.2.1286 1972 Unknown [id number] 2.16.840.1.860404.3.579.2.1259 1972 Unknown [id number] 2.16.840.1.592413.3.579.2.1259 1972 Unknown [id number] 2.16.840.1.913325.3.579.2.1259 1972 Unknown [id number] 2.16.840.1.201487.3.579.2.9 1972 Unknown [id number] 2.16.840.1.601758.3.579.2.9 1972 Unknown [id number] 2.16.840.1.352638.3.579.2.1259 1959 Medicaid [id number] 1959 Unknown [id number] Unknown Unknown [facility] [id number] Unknown [id number] 2.16.840.1.591787.3.579.2.531 Unknown [id number] 2.16840.1.139740.3.579.2.531 Unknown [id number] 2.16.840.1.556866.3.579.2.531 Unknown [id number] 2.16840.1.746410.3.579.2.531 Social History Date Type Detail Facility Start: 10-08-2020 End: 08-12-2023 Tobacco smoking status NHIS Never smoked tobacco [facility] Start: 10-08-2020 End: 08-12-2023 Tobacco use and exposure Smokeless tobacco non-user [facility] Start: 01-04-2022 End: 09-27-2023 Alcohol intake Lifetime non-drinker (finding) [facility] Start: 10-08-2020 History SDOH Alcohol Frequency 1 [facility] Start: 1970 Sex Assigned At Female C [facility] Start: 01-21-2022 End: 07-26-2022 Exposure to SARS-CoV-2 (event) Not sure [facility] Start: 10-08-2020 End: 07-31-2023 Sex Assigned At [facility] Start: 10-08-2020 End: 07-31-2023 No alcohol use No alcohol use [facility] Comment on above: 3 TEA WEEK; How often to you hav e a drink containing alcohol? Never [facility] Average Number of Drinks Not on file [facility] Start: 07-03-2021 Gender identity Identifies as female gender (finding) [facility] Start: 07-03-2021 Sexual orientation Heterosexual (fin ding) [facility] Start: 06-05-2023 Tobacco smoking stat us [facility] Smoker (finding) [facility] Start: 1970 Sex Assigned At Not on file [facility] [employer] [facility] Medical Equipment Procedure Code Equipment Code Equipment Origin al Text Equipment Identifier Dates Fibertak [place] Self-Punching Knotless 2.6mm W/No 5 Suture [id number] Start: 10-14-2020 Fibertak [place] Knotless 2.6mm [id number] Start: 10-14-2020 [place] Swivelock C 4.75mm Biocomposite Peek 19.1mm Suture Closed Eyelet - [id number] Start: 10-14-2020 Sling Gynecare T vt Exact Gynecological Stress Urinary Incontinence - [id number] Start: 12-24-2021 DISC CERVICAL 13 [id number] [...] no longer be seen at this clinic. [facility] 10-12-2023 Note HNO ID: [id number] Author: Pam Wang MD Service: ? Author [...] Video-assisted cystourethroscopy was performed using a 19 [place] Islander 70 and 30 degree rigid cystoscope with [...] urethra PLAN: See progress note from today [facility] 10-10-2023 Note HNO ID: [id number] Author: Pam Wang MD Service: ? Author [...] PFSH obtained by others. Pam Wang MD Skin Former offered: Patient declines. OBJECTIVE: BP 102/60 General: [...] would like to move forward with PNE. [employer] packet given to patient today to review. [...] which included preparing to see the patient, [id number]-ap-zjrk patient care, completing clinical documentation, obtaining and/or reviewing separately obtained history, performing a medically appropriate examination, counseling and educating the patient/family/caregiver, and communicating with other HCP (more content not included)... [facility] 10-02-2023 Miscellaneous Notes Patient was called to find out if there was another pharmacy to send her medication for Diflucan. Patient stated to disregard this medication. Patient stated that she does not need this medication now and that she will be visiting her PCP tomorrow (10/03/23) to address her sickness that she had before going to [place]. She states that she was going to [...] 150 MG TABLET MEREDITH: 09/27/2023 Doris Arias APRN.[facility] ASSESSMENT: Mary Leal is a 53 [...] Dr. Pam Wang documented in this encounter [facility] 09-27-2023 Note HNO ID: [id number] Author: Doris Arias APRN.[employer] Service: ? Author Type: Nurse Practitioner Type: [...] ache and some malodorous urine. Patient in [place], unable to come in for visit. Has [...] urination is normal and pressure with urinating ALTERNATIVE ENERGY ENGINEER: denies abnormal vaginal bleeding, no vaginal discharge [...] Making Level: 3 - Low Doris Arias APRN.COAL WEIGHER [facility] 09-27-2023 Miscellaneous Notes Scheduled 10/10/23 for [...] which included preparing to see the patient, zrrq-bs-eede patient care, completing clinical documentation, obtaining and/or [...] Office will call to schedule cystoscopy. Urogynecology [facility] Main provided: Pam Wang Staff Physician, Department of Urogynecology and Pelvic Floor Disorders Worsening frequency and urgency of urination. Is a urine culture indicated? Please review/advise Lex Vieyra RN documented in this encounter [facility] 09-19-2023 Note Patient states she m istook this medication and has been off for 7 days. Restarting it at the 25mg dose. [facility] 09-11-2023 Note HNO ID: [id number] Author: Jairon Lai MD Service: ? Author Type: Physician Type: Progress Notes Filed: 09/11/2023 1:18 PM Note Text: [facility] [...] to void lower flow Jairon Lai MD [facility] 09-11-2023 Note HNO ID: [id number] Author: Phil Beckford MD Service: ? Author [...] from sling incision +/- discussion of SNM [facility] 09-01-2023 Note Spoke with patient. Canceling valium script. Increasing ativan dose to bid with current bottle for mgmt of anxiety. Appoitment on Saturday 09/08 - she will bring in ativan to count tablets. She states she has 20 left as of today. She should have 4 left at that appointment. [facility] 09-01-2023 Note Mary has been hav ing [...] disponing Ativan at pharmacy in order to bean picker 1 weeks worth of Valium 5mg bid #16, to get her to her next appointment on 09/08. 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 Respiratory: Negative. Cardiovascular: Negative. Psychiatric/Behavioral: dysphoric mood, irritability, insomnia Date of Telehealth Visit: 08/23/23 Chief Complaint Patient presents with Telehealth Audio/video Visit [email or web address] The patient was notified that using 3rd libertarian telecommunication application (e.g., Activaero) is not HIPPA compliant and may carry some privacy risks. Yes The visit was conducted claw-gj-dvdx with the use of audio and video technology Mind [employer] between patient and provider for a virtual [...] Wear CPAP/ Insp (more content not included)... [facility] 08-21-2023 Note [facility] 08-12-2023 Emergency department Note Discharge, follow up, referral, and prescription information reviewed and explained; all questions and concerns addressed. Patient A/Ox3 in NAD, resp. easy unlabored upon discharge, escorted to exit by staff. [facility] 08-12-2023 Emergency department Note Discharge, follow up, [...] gastroparesis, gastroenteritis, acute cholecystitis, pancreatitis, less likely RI The patient's initial and delta troponin are negative. EKG does not demonstrate any ischemic changes. Low suspicion for RI. Her urinalysis is negative for UTI. Urine [...] follow-up. 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 She was instructed to return to the emergency department if she has any new or worsening symptoms. Patient agreeable plan of care. Return precautions discussed at bedside. Spoke with Dr. Salmon regarding patient. Physician to complete their own physical exam and evaluation. Collaboration performed between this CONSERVATION TECHNICIAN and physician regarding patient's plan of care. [...] following orders were created for panel order [place] Draw. Procedure Abnormality Status --------- ------ Gold Top[[id number]] Final result LIGHT BLUE TOP[[id number]] Final result Dark Green Top[[id number]] Final result Please view results for these [...] PWD. NAD noted. documented in this encounter [facility] 08-12-2023 Hospital Discharge instructions Lev Ritter APRN [...] cannot be sent through Care Everywhere.Abdominal Pain (South [place] Venezuelan)documented in this encounter [facility] 08-12-2023 Emergency department Note Report to Les GAMBINO [facility] 08-12-2023 Physician Emergency department Note Images from [...] gastroparesis, gastroenteritis, acute cholecystitis, pancreatitis, less likely RI The patient's initial and delta troponin are negative. EKG does not demonstrate any ischemic changes. Low suspicion for RI. Her urinalysis is negative for UTI. Urine [...] follow-up. 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 She was instructed to return to the emergency department if she has any new or worsening symptoms. Patient agreeable plan of care. Return precautions discussed at bedside. Spoke with Dr. Salmon regarding patient. Physician to complete their own physical exam and evaluation. Collaboration performed between this CONSERVATION TECHNICIAN and physician regarding patient's plan of care. [...] following orders were created for panel order [place] Draw. Procedure Abnormality Status --------- ------ Gold Top[[id number]] Final result LIGHT BLUE TOP[[id number]] Final result Dark Green Top[[id number]] Final result Please view results for these tests on the individual orders. GOLD TOP LIGHT BLUE TOP DARK GREEN TOP TROPONIN I Records reviewed: Urogynecology telemedicine visit 08/07/2023 ENT visit 07/11/2023 Family medicine visit 07/06/2023 Lev Ritter APRN [employer] 08/12/23722 [facility] 08-12-2023 Emergency department Note Emily at bedside [facility] 08-12-2023 Emergency department Triage note Ambulates to triage with C/O sudden epigastric gnawing, burning pain that woke her from sleep. Also reports wheezing. States nausea. Denies fever. Alert. Respirations easy and unlabored. Skin PWD. NAD noted. [facility] 08-07-2023 Note HNO ID: [id number] Author: Pam Wang MD Service: ? Author [...] no Pain: no Abnormal Vaginal Discharge: no 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 She has no history of an abnormal mammogram with cysts on US LMP: No LMP recorded. Patient has had a hysterectomy.; Menopause 3 years ago; hysterectomy in 2015: Menstrual history: NA; Deliveries: I have confirmed and edited as necessary, the PFSH obtained by others. Pam Wang MD Skin Former offered: Patient declines. OBJECTIVE (Virtual) There were [...] which included preparing to see the patient, fewg-ll-slsk patient care, completing clinical documentation, obtaining and/or reviewing separately obtained history, counseling and educating the patient/family/caregiver, ordering medications, tests, or procedures, and communicating with other HCPs (not separately reported). Pam Wang MD [facility] 07-31-2023 Note HNO ID: [id number] Author: Nelsy Chávez APRN.KWESI Service: ? Author Type: Nurse Practitioner Type: [...] new Pain: no Abnormal Vaginal Discharge: no 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 She has no history of an abnormal mammogram with cysts on US LMP: No LMP recorded. Patient has had a hysterectomy.; Menopause 3 years ago; hysterectomy in 2015: Menstrual history: NA; Deliveries: I have confirmed and edited as necessary, the PFSH obtained by others. Nelsy Chávez APRN.CO[employer] WEIG[employer] Skin Former offered: Patient declines. OBJECTIVE: There were no [...] for now d/t side effects Nelsy Chávez APRN.COAL WEIGHER I spent a total of 45 minutes on the date of the service which included preparing to see the patient, azzf-we-oshk patient care, completing clinical documentation, performing a medically appropriate examination, counseling and educating the patient/family/caregiver and ordering medications, tests, or procedures. [facility] 07-31-2023 History of Present illness Narrative [...] new Pain: no Abnormal Vaginal Discharge: no 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 She has no history of an abnormal mammogram with cysts on US LMP: No LMP recorded. Patient has had a hysterectomy.; Menopause 3 years ago; hysterectomy in 2015: Menstrual history: NA; Deliveries: I have confirmed and edited as necessary, the PFSH obtained by others. Nelsy Chávez APRN.KWESI Skin Former offered: Patient declines. OBJECTIVE: There were no [...] which included preparing to see the patient, zywz-ob-fxif patient care, completing clinical documentation, performing a medically appropriate examination, counseling and educating the patient/family/caregiver and ordering medications, tests, or procedures. documented in this encounter [facility] 07-25-2023 Note Patient: Mary arriaza Procedure Summary Date: 07/25/23 Room / Location: [facility] Main OR Anesthesia Start: 1105 Anesthesia Stop: [...] per anesthesia protocol. No notable events documented. [facility] 07-25-2023 Note Patient: Mary arriaza Procedure Summary Date: 07/25/23 Room / Location: [facility] Main OR Anesthesia Start: 1104 Anesthesia Stop: Procedures: EGD DIAGNOSTIC COLONOSCOPY Diagnosis: Gastroesophageal reflux disease without esophagitis Nausea Diarrhea, unspecified type Scheduled Providers: Matteo Quinones MD; Blanquita Ramirez MD Responsible Provider: Blanquita Ramirez MD Anesthesia Type: MAC ASA Status: 3 Anesthesia Post Transport Note Transport to: [place] PACU O2 Route: room air Patient Monitor: direct observation Transport: uneventful Patient condition is: stable [facility] 07-25-2023 Note Patient: Mary arriaza Procedure Information Date/Time: 07/25/23 1100 Scheduled providers: Matteo Quinones MD; Blanquita Ramirez MD Procedures: EGD DIAGNOSTIC COLONOSCOPY Location: [facility] Main OR Relevant Problems Anesthesia (+) [...] who. Plan discussed with resident, CAA and CREDIT COLLECTIONS SPECIALIST. 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 Do not wear perfume, make-up, nail ukrainian, or lotions on the day of your [...] need to make any changes, please call [phone]. Notify your surgeon if you develop any illness such as a cold, cough, fever, sore throat or vomiting between now and your surgery. Thank you for entrusting us with your care. [facility] Surgical Services Team [facility] 06-08-2023 Note Psych Progress Note Time In: 925 Time Out: 940 HPI Present at Visit: basia Hernandez, FIBERGLASS TECHNICIAN student Location of Service: Office Review of Systems Constitutional: Negative. Respiratory: Negative. Cardiovascular: Negative. Psychiatric/Behavioral: Negative. Date of Telehealth Visit: 06/08/23 Chief Complaint Patient presents with Telehealth Audio/video Visit [email or web address] The patient was notified that using 3rd libertarian telecommunication application (e.g., Activaero) is not HIPPA compliant and may carry some privacy risks. Yes The visit was conducted jyhc-jy-lyvv with the use of audio and video technology Mind [employer] Games between patient and provider for a virtual [...] dictated by speech recognition. Minor errors in fullerette may be present. Information on after hour access to care was provided - encouraged to use 911, [facility], their [facility] crisis hotline, or the nearest emergency room in the event of a crisis. Also informed of 24 hour access at [facility] and if in crisis after regular business hours may call the hospital spray rig operator [phone]; and ask to speak with the vice president process on-call. Patient Rights and Responsibilities were discussed, [...] get back t (more content not included)... [facility] 05-31-2023 Note [facility] Gastroenterolog y New Patient Visit - History & Physical CHIEF COMPLAINT Chief Complaint Patient presents with Nausea GERD Abdominal Pain New Patient HISTORY OF PRESENT ILLNESS: Mary Leal is a 53 y.o. female new patient referred by Dr. Willams for gastroparesis, GERD, and abdominal pain. Past medical history includes gastroparesis ( was evaluated by DR Masters at [facility]) and total abdominal colectomy with ileorectal [...] chart, Montiel placement was planned, but aborted 2/ LA Grade D esophagitis. ( According to [...] LABS/IMAGING/ENDOSCOPY: Flex sig 12/05/22 Dr. Masters ( [facility]) Impression: - The area at 20 cm proximal to the anus is normal. - No specimens collected. Recommendation: - Discharge patient to home. - Resume previous diet. - Continue present medications. EGD 12/07/2022 Dr Winston Hannah ( gen Surgery [facility]) EGD with Pyloric Dilation. During this procedure [...] Abnormal mammogram Arthritis (more content not included)... [facility] 05-22-2023 Note You are not granted access to view this sensitive note. [facility] 05-17-2023 Note Psych Progress Note Time In: 1245 Time Out: 110 HPI Present at Visit: Mary Location of Service: Office Review of Systems Constitutional: Negative. Respiratory: Negative. Cardiovascular: Negative. Psychiatric/Behavioral: Negative. Date of Telehealth Visit: 05/17/23. Chief Complaint Patient presents with Telehealth Audio/video Visit [email or web address] The patient was notified that using 3rd libertarian telecommunication application (e.g., Activaero) is not HIPPA compliant and may carry some privacy risks. Yes The visit was conducted zsou-pq-mhwj with the use of audio and video technology [employer] between patient and provider for a virtual [...] dictated by speech recognition. Minor errors in fullerette may be present. Information on after hour access to care was provided - encouraged to use 911, Rescue Crisis, their [facility] health crisis hotline, or the nearest emergency room in the event of a crisis. Also informed of 24 hour access at [facility] and if in crisis after regular business hours may call the hospital spray rig operator [phone]; and ask to speak with the vice president process on-call. Patient Rights and Responsibilities were discussed, [...] alternatives to tr (more content not included)... [facility] 05-17-2023 Note You are not granted access to view this sensitive note. [facility] 04-26-2023 Evaluation note Encounter Date Diagnosis Assessment [...] Above note written by Wanda Yang LPN, Billing Typist. Edited and approved by Dr. Annette Harris MD. [employer] Other 06-12-2023 NoteYou are not granted access to view this sensitive note.[facility]06-09-2023 NoteYou are not granted access to view this sensitive note.[facility] 04-11-2023 Miscellaneous Notes* Telephone Encounter - Serenity Joseph MA - 04/11/2023 10:19 AM EDT MEREDITH=10/11/22 Spoke with patient she does need a refill Medication pended please file Rx request if appropriate Patient and pharmacy verified documented in this encounterGalion [facility]06-05-2023 NoteYou are not granted access to view this sensitive note.[facility]05-15-2023 Miscellaneous Notes* Telephone Encounter - Lilli Goldberg - 03/20/2023 2:50 PM EDT Should patient follow up via virtual visit to discuss further? * Telephone Encounter - Ban Benton LPN - 03/20/2023 10:20 AM EDT Patient's stool tests came back normal. Ban Benton LPN documented in this encounterGalion Hospital05-15-2023 NoteYou are not granted access to view this sensitive note.[facility]05-01-2023 NoteYou are not granted access to view this sensitive note.[facility]04-24-2023 NoteYou are not granted access to view this sensitive note.[facility]04-18-2023 NotePROCEDURE: XR ANKLE RT MIN 3 VIEWS, [...] Electronically authenticated by: ZAIDA ACOSTA Date: 2023-02-21 10:15[facility]04-18-2023 NotePROCEDURE: XR ANKLE RT MIN [...] Electronically authenticated by: ZAIDA ACOSTA Date: 2023-02-21 10:[address] [place], [place] [id number] NoteYou are not granted access to view this sensitive note.[facility]04-13-2023 NotePsych Progress Note Time In: 2 Time Out: 2:25 HPI Present at Visit: Mary Location of Service: Office Review of Systems Constitutional: Negative. Respiratory: Negative. Cardiovascular: Negative. Psychiatric/Behavioral: Negative. Date of Telehealth Visit: 02/20/2023 Chief Complaint Patient presents with Telehealth Audio/video Visit [email or web address] The patient was notified that using 3rd libertarian telecommunication application (e.g., Activaero) is not HIPPA compliant and may carry some privacy risks. Yes The visit was conducted rdbj-fw-reax with the use of audio and video technology Expedit.usEX between patient and provider for a virtual [...] dictated by speech recognition. Minor errors in fullerette may be present. Information on after hour access to care was provided - encouraged to use 911, Rescue Crisis, their [facility] health crisis hotline, or the nearest emergency room in the event of a crisis. Also informed of 24 hour access at [facility] and if in crisis after regular business hours may call the hospital spray rig operator [phone]; and ask to speak with the vice president process on-call. Patient Rights and Responsibilities were discussed, [...] as all medications m (more content not included)...[facility]04-10-2023 Note Attestation signed by Grant Biswas, PhD at 02/16/2023 2:57 PM This encounter qualifies to be billed under ???Direct Supervision??? because this patient was met by a licensed clinical psychologist upon starting treatment services with the provider who is a clinical psychology county program technician. The licensed clinical psychologist providing supervision for [...] in office Patient Location: Via telehealth in [place] Telehealth Information Telehealth Mode: [employer] (video + audio) The patient was notified that using 3rd libertarian telecommunication application is not HIPAA compliant and may carry some privacy risks: Yes Video Consent Date of Telehealth Visit: 02/13/23 The patient was notified that using 3rd libertarian telecommunication application (e.g. Activaero) is not HIPAA compliant and may carry some privacy risks: Yes This visit was conducted dckt-rc-gekd with the use of audio and video technology using DBVu between patient and the provider for a virtual visit. Verbal consent to provide and bill this service was obtained on: 02/13/23 No signature was obtained due to the COVID-19 pandemic. SUBJECTIVE CC: Chief Complaint Patient presents with Therapy HPI: Mary Leal is a 52 y.o. female presenting to the [facility] on 02/13/23 for management [...] wakes up. She also recently went to [employer] games which is something her father enjoyed. [...] (ISP): Provider: Carmen Dorsey M.A. (clinical psychology county program technician) Frequency: 1-4 weeks Patient Needs: eleviate anxiety, [...] oriented to person, orien (more content not included)...[facility]04-03-2023 Note Attestation signed by Grant Biswas, PhD at 02/06/2023 9:45 AM This encounter qualifies to be billed under ???Direct Supervision??? because this patient was met by a licensed clinical psychologist upon starting treatment services with the provider who is a clinical psychology county program technician. The licensed clinical psychologist providing supervision for [...] Clinician in office Patient Location: Via telehealth [facility] Telehealth Information Telehealth Mode: Webex (video + audio) The patient was notified that using 3rd libertarian telecommunication application is not HIPAA compliant and may carry some privacy risks: Yes Video Consent Date of Telehealth Visit: 02/06/23 The patient was notified that using 3rd libertarian telecommunication application (e.g. Activaero) is not HIPAA compliant and may carry some privacy risks: Yes This visit was conducted acwn-hr-laeb with the use of audio and video technology using DBVu between patient and the provider for a virtual visit. Verbal consent to provide and bill this service was obtained on: 02/06/23 No signature was obtained due to the COVID-19 pandemic. SUBJECTIVE CC: Chief Complaint Patient presents with Therapy HPI: Mary Leal is a 52 y.o. female presenting to the [facility] on 02/06/23 for management of depression and anxiety. Since the last visit, the patient's condition has remained stable. Session activities included: symptom monitoring, psychoeducation on obsessive thoughts/compulsive behaviors. Pt stated she has had difficulty sleeping the past week and feels tired. Pt regularly reports sleep difficulties. She stated she saw her FIBERGLASS TECHNICIAN and they discussed stopping her trazadone to see if that helps. Pt stated she did not get any sleep the nights she did not take the trazadone and thus started taking it again. She stated she will message her FIBERGLASS TECHNICIAN to let her know. Pt stated she [...] (ISP): Provider: Carmen Dorsey M.A. (clinical psychology county program technician) Frequency: 1-4 weeks Patient Needs: eleviate anxiety, [...] normal Build/Stature: N/A Gait (more content not included)...[facility]03-30-2023 NotePsych Progress Note Time In: 9:38 Time [...] dictated by speech recognition. Minor errors in fullerette may be present. Information on after hour access to care was provided - encouraged to use TrackVia, [facility] [employer], their [facility] health crisis hotline, or the nearest emergency room in the event of a crisis. Also informed of 24 hour access at [facility] and if in crisis after regular business hours may call the hospital spray rig operator [phone]; and ask to speak with the vice president process on-call. Patient Rights and Responsibilities were discussed, [...] needed between scheduled f (more content not included)...[facility] 01-31-2023 NotePROCEDURE: XR FOOT RT MIN 3 [...] Electronically authenticated by: ZAIDA ACOSTA Date: 2023-01-31 11:55[facility]03-20-2023 Note Attestation signed by Grant Biswas, PhD at 01/23/2023 11:30 AM This encounter qualifies to be billed under ???Direct Supervision??? because this patient was met by a licensed clinical psychologist upon starting treatment services with the provider who is a clinical psychology county program technician. The licensed clinical psychologist providing supervision for [...] in office Patient Location: Via telehealth in [place] Telehealth Information Telehealth Mode: Webex (video + audio) The patient was notified that using 3rd libertarian telecommunication application is not HIPAA compliant and may carry some privacy risks: Yes Video Consent Date of Telehealth Visit: 01/23/23 The patient was notified that using 3rd libertarian telecommunication application (e.g. Activaero) is not HIPAA compliant and may carry some privacy risks: Yes This visit was conducted zqal-nf-wcar with the use of audio and video technology using DBVu between patient and the provider for a virtual visit. Verbal consent to provide and bill this service was obtained on: 01/23/23 No signature was obtained due to the COVID-19 pandemic. SUBJECTIVE CC: Chief Complaint Patient presents with Therapy HPI: Mary Leal is a 52 y.o. female presenting to the [facility] on 01/23/23 for management [...] to live with their older sister in [place]. Pt has met with an assistant attorney general and is securing the necessary paperwork. Current [...] (ISP): Provider: Carmen Dorsey M.A. (clinical psychology county program technician) Frequency: 1-4 weeks Patient Needs: eleviate anxiety, [...] time Attention and Concent (more content not included)...[facility]03-16-2023 Miscellaneous Notes* Telephone Encounter - Jennie Moreno RN - 01/19/2023 2:17 PM EDT Please review and advise patient. documented in this encounterGalion Hospital03-13-2023 Miscellaneous Notes* Telephone Encounter - Mounika Hernandez PA-C - 01/16/2023 1:08 PM EDT Patient was scheduled for virtual PACC appt at 1300 today. Patient did not check in for visit. Called patient at [phone] to see if they needed any assistance logging in and left voicemail. This message routed to PACC schedulers to contact patient to reschedule PACC appt. Mounika Hernandez PA-C January 16, 2023 1:09 PM documented in this encounterGalion Hospital03-13-2023 History and physical note * Mounika Hernandez PA-C - 01/16/2023 1:00 PM EDT This is a virtual visit using [employer] video visit. It required patient-provider interaction for themedical decision making as documented below. I have communicated my name and active licensure. The patient's identity and physical location wereverified at the time of this visit. Either the patient or their legal patient access representative has been informed of the risks and benefits of and alternatives to treatment through a remote evaluation and consents to proceed with the evaluation remotely. Surgeon: Winston Hannah DO Type of surgery: GEN SURG: POP Patient scheduled for surgery on 02/08/23 . Surgery Location: [facility] Diagnosis: Preop examination (primary encounter diagnosis) Nausea Chuckie (obstructive sleep apnea) Mild persistent asthma without complication Gastroesophageal reflux disease, unspecified whether esophagitis present Gastroparesis Ht 5' 4 (1.63m) Wt 150 lb (68.0kg) BMI 25.73 kg/(m^2). H&P completed: 01/10/[address] aHnnah Social History Tobacco Use Smoking status: Never [...] in the AM and 4 mg PM tvcwolxyjen-pluzwnzzn-rjityjau (TRELEGY ELLIPTA) 100-62.5-25 mcg Inhale 1 Puff [...] 16, 2023 12:36 PM documented in this encounterGalion Hospital03-13-2023 Instructions* Patient Instructions* Mounika Hernandez PA-C - 01/16/2023 12:38 PM EDT PATIENT PREOPERATIVE INSTRUCTIONS Winston Hannah DO has scheduled you for your procedure at this surgery center: [facility]: [phone] -- [facility] [address]. Please read below carefully for your personalized [...] Procedures: - YOU MUST HAVE A RESPONSIBLE LUMBER STRAIGHTENED TAKE YOU HOME. A JOCKEY'S AGENT OR DEMOGRAPHIC ANALYST CANNOT BE MADE A RESPONSIBLE LUMBER STRAIGHTENED. - We recommend that a responsible person [...] Advance Directive, please fax a copy to [phone] or email to for it to be [...] day. Mounika Hernandez PA-C documented in this encounterGalion Hospital03-08-2023 Miscellaneous Notes* Telephone Encounter - Berta Ann RN - 01/11/2023 9:47 AM EST Procedure pended for 02/08/23. Pt aware of need for PACC. Pre-op instructions reviewed, will send to pt's MC, per pt request. Postop appt scheduled. No other questions at this time. Berta HENSON, RN Specialty Registered Land Surveyor documented in this encounterGalion Hospital03-07-2023 NoteHNO ID: [id number] Author: Winston Hannah, DO Service: ? Author Type: Physician Type: Progress Notes Filed: 01/10/2023 6:08 PM Note Text: [facility] [place] Gastroparesis/Dysmotility Follow Up This encounter was provided [...] TIME: 8:59 AM PRIMARY CARE PHYSICIAN: Eliceo Willams, DO [...] surgical therapy for gastroparesis in detail. Mary Zoya Leal is candidate for Per Oral Pyloromyotomy [...] of care. NAME: Mary Leal CLINIC NO: [id number] CHIEF COMPLAINT Idiopathic Gastroparesis HISTORY OF PRESENT [...] thin barium without ob (more content not included)...[facility] 01-10-2023 History of Present illness Narrative* Winston Hannah, DO - 01/10/2023 9:09 AM EST Images from the original note were not included. [facility] [place] Gastroparesis/Dysmotility Follow Up This encounter was provided [...] of care. NAME: Mary Leal CLINIC NO: [id number] CHIEF COMPLAINT Idiopathic Gastroparesis HISTORY OF PRESENT [...] Normal gastric transit Normal small bowel transit [id number] transit in the distal bowel consistent delay [...] (FLONASE) 50 mcg/actuation nasal spray Use 1 [place] in each nostril once daily. carBAMazepine XR [...] THE LUNGS every 4 hours if needed uqdesjisrll-xsinwdpuw-esienvyk (TRELEGY ELLIPTA) 100-62.5-25 mcg Inhale 1 Puff [...] dialysis. No history of symptoms or problems. ALTERNATIVE ENERGY ENGINEER: Negative for abnormal vaginal bleeding, abnormal vaginal [...] and plan of care. documented in this encounterCleveland [id number] NoteDepartment of Psychiatry Outpatient Progress Note Time In: 2:30 PM Time Out: 3:00 PM Present At Visit: Patient Clinician Location: Clinician via telehealth Patient Location: Meeting remotely by telephone today (patient unable to connect by video). Subjective CC: Chief Complaint Patient presents with Telehealth Audio/video Visit HPI: Mary Leal is a 52 y.o. female presenting to the [facility] on 01/06/2023 for medication [...] oral, Daily cholecalciferol (Vitamin D-3) 50 MCG (1999) tablet oral, Daily cyanocobalamin (VITAMIN B-12) 1,000 [...] week. Annette Swanson DO (more content not included)...[facility] 01-02-2023 NotePsychiatry Psychotherapy Progress Note Time In: 11:00 am Time Out: 11:53 am Present At Visit: Patient Clinician Location: Clinician in office Patient Location: Via telehealth in [place] Telehealth Information Telehealth Mode: Webex (video + audio) The patient was notified that using 3rd libertarian telecommunication application is not HIPAA compliant and may carry some privacy risks: Yes Video Consent Date of Telehealth Visit: 01/02/23 The patient was notified that using 3rd libertarian telecommunication application (e.g. Activaero) is not HIPAA compliant and may carry some privacy risks: Yes This visit was conducted ntmj-xd-zczh with the use of audio and video technology using DBVu between patient and the provider for a virtual visit. Verbal consent to provide and bill this service was obtained on: 01/02/23 No signature was obtained due to the COVID-19 pandemic. SUBJECTIVE CC: Chief Complaint Patient presents with Therapy HPI: Mary Leal is a 52 y.o. female presenting to the [facility] on 01/02/23 for management of depression and anxiety. Since the last visit, the patient's condition has improved Session activities included: reviewed and discussed acts of self-care and value-focused behaviors. Pt stated she had an epiphany last week and made the decision to have her niece and nephew live with their sister in [place]. Pt stated she is done raising kids [...] with her children before they go to [place]. Pt acknowledged she was not looking forward [...] (ISP): Provider: Carmen Dorsey M.A. (clinical psychology county program technician) Frequency: 1-4 weeks Patient Needs: eleviate anxiety, [...] Disp: , Rfl: alend (more content not included)...[facility] 12-29-2022 Miscellaneous Notes* Addendum Note - Yoni Tuttle MD - 12/29/2022 3:37 PM ESTAddended by: YONI TUTTLE MD on: 12/29/2022 03:37 PM Modules accepted: Orders documented in this encounterGalion Hospital02-20-2023 NoteHNO ID: [id number] Author: RT Елена(R) Service: Radiology Author Type: Technologist Type: Progress [...] Елена(R) December 26, 2022 3:17 [facility]02-20-2023 History of Present illness Narrative* RT Елена(R) [...] 26, 2022 3:17 PM documented in this encounterGalion Hospital02-17-2023 Miscellaneous Notes* Telephone Encounter - Uziel Serrano RN - 12/23/2022 4:36 PM EST Message being addressed in another encounter that was forwarded to provider documented in this encounterGalion Hospital02-16-2023 NoteHNO ID: [id number] Author: Winston Hannah, DO Service: ? Author Type: Physician Type: Progress Notes Filed: 12/22/2022 9:32 AM Note Text: [facility] Disease AND Surgery [place] Gastroparesis/Dysmotility Follow Up This encounter was provided [...] completed esophagram NAME: Mary Leal CLINIC NO: [id number] CHIEF COMPLAINT Idiopathic Gastroparesis HISTORY OF PRESENT [...] chicken spaghetti etc. Duration of symptoms (months): 0043-7849 Weight changes in last 3 months: Stable [...] transit. WGTT: 24:32 Normal (more content not included)...[facility] 12-22-2022 History of Present illness Narrative* Winston Hannah, DO - 12/22/2022 8:52 AM EST Images from the original note were not included. [facility] [place] Gastroparesis/Dysmotility Follow Up This encounter was provided [...] completed esophagram NAME: Mary Leal CLINIC NO: [id number] CHIEF COMPLAINT Idiopathic Gastroparesis HISTORY OF PRESENT [...] chicken spaghetti etc. Duration of symptoms (months): 4524-4395 Weight changes in last 3 months: Stable [...] Normal gastric transit Normal small bowel transit [id number] transit in the distal bowel consistent delay [...] TONSILLECTOMY HX 07/2021 revision VAGINAL HYSTERECTOMY 2014 [facility] 10/2015 for endometriosis, has remaining both FAMILY [...] (FLONASE) 50 mcg/actuation nasal spray Use 1 [place] in each nostril once daily. carBAMazepine XR [...] THE LUNGS every 4 hours if needed fywolgdtylc-cznpbtpdu-dxrflewk (TRELEGY ELLIPTA) 100-62.5-25 mcg Inhale 1 Puff [...] dialysis. No history of symptoms or problems. ALTERNATIVE ENERGY ENGINEER: Negative for abnormal vaginal bleeding, abnormal vaginal [...] and plan of care. documented in this encounterGalion Hospital02-15-2023 NotePROCEDURE: XR FOOT RT MIN 3 VIEWS [...] Electronically authenticated by: ZAIDA ACOSTA Date: 2022-12-21 12:24[facility]02-09-2023 NoteHNO ID: [id number] Author: Mary Obrien MD Service: ? Author Type: Physician Type: Progress Notes Filed: 12/15/2022 8:51 AM Note Text: COLORECTAL SURGERY December 15, 2022 Mary Kenny Elvis Virtual Visit Chief Complaint: follow up/ pelvic [...] in the AM and 4 mg PM wrwqstdxeab-bqpjwsqhu-ubvgjcxs (TRELEGY ELLIPTA) 100-62.5-25 mcg Inhale 1 Puff [...] which included preparing to see the patient, vxaa-lg-yolo patient care, co (more content not included)...[facility]02-09-2023 History of Present illness Narrative* Mary Obrien MD - 12/15/2022 8:40 AM EST COLORECTAL SURGERY December 15, 2022 Mary Leal [...] in the AM and 4 mg PM trsxwevcryj-ilnfxvqst-vmoqtqvh (TRELEGY ELLIPTA) 100-62.5-25 mcg Inhale 1 Puff [...] which included preparing to see the patient, glfv-in-seje patient care, completing clinical documentation, obtaining and/or reviewing separately obtained history, counseling and educating the patient/family/caregiver, ordering medications, quincy ts, or procedures, communicating with other HCPs (not separately reported), independently interpreting results (not separately reported), communicating results to the patient/family/caregiver, and care coordination (not separately reported). Mary Obrien MD Colorectal Surgery documented in this encounterGalion Hospital02-08-2023 Miscellaneous Notes* Telephone Encounter - Patricia Benton RN - 12/14/2022 5:19 PM EST Several attempts to reach pt unsuccessful - MC sent. * Telephone Encounter - Barber Marie - 12/02/2022 8:39 AM EST SLEEP PHONE Name of caller: Mary Leal Relationship to patient : Self In-state or nyo-fa-mwzyv patient: In-State Was permission obtained from patient? Yes Patient identified by Name and Date of . ( Mary Zoya Elvis, 1970). Yes Reason for Call : Patient said her and Patricia was chatting through my chart and Patricia calledher about 5:15 yesterday. Number to return call [phone] Okay to leave a message ? Yes Last office visit 10/14/[address] Kusum guzman Next office visit 01/13/[address] Tuttle virtual documented in this encounterGalion Hospital02-06-2023 NotePsychiatry Psychotherapy Progress Note Time In: 8:30 am Time Out: 9:25 am Present At Visit: Patient Clinician Location: Clinician in office Patient Location: Via telehealth in [place] Telehealth Information Telehealth Mode: Webex (video + audio) The patient was notified that using 3rd libertarian telecommunication application is not HIPAA compliant and may carry some privacy risks: Yes Video Consent Date of Telehealth Visit: 12/12/22 The patient was notified that using 3rd libertarian telecommunication application (e.g. Activaero) is not HIPAA compliant and may carry some privacy risks: Yes This visit was conducted upeg-ll-fofr with the use of audio and video technology using [employer] between patient and the provider for a virtual visit. Verbal consent to provide and bill this service was obtained on: 12/12/22 No signature was obtained due to the COVID-19 pandemic. SUBJECTIVE CC: Chief Complaint Patient presents with Therapy HPI: Mary Leal is a 52 y.o. female presenting to the [facility] on 12/12/22 for management [...] (ISP): Provider: Carmen Dorsey M.A. (clinical psychology county program technician) Frequency: 1-4 weeks Patient Needs: eleviate anxiety, [...] of water, on an (more content not included)...[facility]02-06-2023 Miscellaneous Notes* Telephone Encounter - See Wong [...] and follow up testing return call to [phone] documented in this encounterGalion Hospital02-03-2023 NoteDepartment of Psychiatry Outpatient Progress Note Time In: 3 PM Time Out: 3:30 PM Present At Visit: Patient Clinician Location: Clinician in office Patient Location: In office Subjective CC: Chief Complaint Patient presents with Telehealth Audio/video Visit [email or web address] HPI: Mary Leal is a 52 y.o. female presenting to the [facility] on 12/09/21. ' Between [...] Previous medication trials: Prozac - jaw clenching Rodger - pieter, but was on another antipsychotic at that [...] teratogenicity, and medication (more content not included)... [facility]02-03-2023 Miscellaneous Notes* Telephone Encounter - JAHAIRA Rosales - 12/09/2022 1:31 PM EST Called [...] patient Summary: As noted Concerns: Procedure results Registered Land Surveyor plan for next outreach: Will follow up Signature Nelsy Pepe RN December 08, 2022 documented in this encounterGalion Hospital01-30-2023 Nurse Note* Lisa Contreras RN - 12/05/2022 1:05 PM EST [facility] ENDOSCOPY PRE PROCEDURE CALL Akiko. I'm calling from [facility] endoscopy to provide you with the information for your surgery/procedure tomorrow. 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 tbd What is the best number for your marine engine driver to be reached at tomorrow for updates? tbd Your marine engine driver is allowed to wait here with you [...] Do not wear makeup, lotion, or finger ukrainian. yes Patient instructed: Please bring a list [...] given Any barriers to Patient learning (confusion? 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 If patient needs to reschedule please call: [phone] [facility] phone number: [phone] Type of instruction given: Verbal by telephone contact. documented in this encounterGalion Hospital01-27-2023 Nurse Note* Isra Harman RN - 12/02/2022 10:48 AM EST [facility] ENDOSCOPY PRE PROCEDURE CALL Akiko. I'm calling from [facility] endoscopy to provide you with the information for your surgery/procedure tomorrow. 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 Rich What is the best number for your marine engine driver to be reached at tomorrow for updates? [phone] Your marine engine driver is allowed to wait here with you [...] must be done on Monday.) Did you bean picker your bowel prep pt calling office for [...] Do not wear makeup, lotion, or finger ukrainian. yes Patient instructed: Please bring a list [...] given Any barriers to Patient learning (confusion? 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 If patient needs to reschedule please call: [phone] [facility] phone number: [phone] Type of instruction given: Verbal by telephone contact. documented in this encounterGalion Hospital01-26-2023 NotePROCEDURE: XR FOOT RT MIN 3 VIEWS, [...] Electronically authenticated by: ZAIDA ACOSTA Date: 2022-12-01 11:42[facility]01-26-2023 NotePROCEDURE: XR FOOT RT MIN [...] Electronically authenticated by: ZAIDA ACOSTA Date: 2022-12-01 11:42[facility]01-25-2023 NoteHNO ID: [id number] Author: Isra Masters, DO Service: ? Author [...] in the AM and 4 mg PM txvckxrncbp-tpdvgclbp-edwzfuxa (TRELEGY ELLIPTA) 100-62.5-25 mcg Inhale 1 Puff [...] no edema RESPIRATORY: No dyspnea : neg ALTERNATIVE ENERGY ENGINEER: neg The remainder of the review of [...] constipation K59.04 SIGMOIDOSCOPY 2. Nausea R11.0 Isra GalarzaDO blanca 11/30/2022[facility]01-25-2023 History of Present illness Narrative* Isra MastersDO [...] in the AM and 4 mg PM jacdkxjivvv-mkawmaxbu-xzfdzejd (TRELEGY ELLIPTA) 100-62.5-25 mcg Inhale 1 Puff [...] no edema RESPIRATORY: No dyspnea : neg ALTERNATIVE ENERGY ENGINEER: neg The remainder of the review of [...] Isra Masters DO 11/30/2022 documented in this encounterGalion Hospital01-25-2023 NotePsychiatry Psychotherapy Progress Note Time In: 8:30 AM Time Out: 9:13 AM Present At Visit: Patient Clinician Location: Clinician via telehealth Patient Location: Via telehealth in [place] Telehealth Information Telehealth Mode: Webex (video + audio) The patient was notified that using 3rd libertarian telecommunication application is not HIPAA compliant and may carry some privacy risks: Yes Video Consent Date of Telehealth Visit: 11/30/22 The patient was notified that using 3rd libertarian telecommunication application (e.g. Activaero) is not HIPAA compliant and may carry some privacy risks: Yes This visit was conducted dttx-ub-krbu with the use of audio and video technology using DBVu between patient and the provider for a virtual visit. Verbal consent to provide and bill this service was obtained on: 11/30/22 No signature was obtained due to the COVID-19 pandemic. SUBJECTIVE CC: Chief Complaint Patient presents with Therapy HPI: Mary Leal is a 52 y.o. female presenting to the [facility] on 11/30/22 for management [...] every 28 (twenty-eight) d (more content not included)...[facility]01-19-2023 Miscellaneous Notes* Telephone Encounter - Uziel Serrano RN - 11/24/2022 3:20 PM EST This concern was addressed in the phone encounter on 11/24/22. Patient was called back and informed [employer] will complete Prior Authorization for her sleep study. documented in this encounterGalion Hospital01-19-2023 Miscellaneous Notes* Telephone Encounter - Uziel Serrano [...] Relationship to patient : Self In-state or xrw-jg-fredm patient: In-State Was permission obtained from patient? Yes Patient identified by Name and Date of . ( Mary Leal, 1970). Yes Reason for Call : Patient stated she spoke to her insurance and they told her that the provider need to call [place] to see if a PA is needed for the PAP Titration. Number to return call [phone] Okay to leave a message ? Yes Last office visit 10/14/[address] Tuttle virtual Next office visit None documented in this encounterGalion Hospital01-19-2023 NoteHNO ID: [id number] Author: Isra Masters DO Service: ? Author Type: Physician Type: Progress Notes Filed: 11/24/2022 8:30 AM Note Text: SmartPill Test Report - [id number] Test start date: 11/17/2022 10:03 AM Steel Heater: josephine Interpretation date: 11/24/2022 Ordering physician: Isra Masters DO Referring physician: Patient Information Name: Mary Leal. ID: [id number] date: 1970 Height ft. in.: 5' 4 [...] Normal gastric transit Normal small bowel transit [id number] transit in the distal bowel consistent delay post anastomosis Signature _Dr. Masters Date _11/24/2022 [facility]01-19-2023 History of Present illness Narrative* Isra Masters DO - 11/24/2022 8:29 AM EST Images from the original note were not included. [employer]itainment[employer]gey Test Report - [id number] Test start date: 11/17/2022 10:03 AM Steel Heater: josephine Interpretation date: 11/24/2022 Ordering physician: Isra Masters DO Referring physician: Patient Information Name: Mary LealTommy ID: [id number] date: 1970 Height ft. in.: 5' 4 [...] Normal gastric transit Normal small bowel transit 51ae15rku transit in the distal bowel consistent delay post anastomosis Signature _Dr. Masters Date _11/24/2022 documented in this encounterGalion Hospital01-18-2023 NotePsychiatry Psychotherapy Progress Note Time In: 8:30 AM Time Out: 9:23 AM Present At Visit: Patient Clinician Location: Clinician in office Patient Location: Via telehealth in [place] Telehealth Information Telehealth Mode: Webex (video + audio) The patient was notified that using 3rd libertarian telecommunication application is not HIPAA compliant and may carry some privacy risks: Yes Video Consent Date of Telehealth Visit: 11/23/22 The patient was notified that using 3rd libertarian telecommunication application (e.g. Activaero) is not HIPAA compliant and may carry some privacy risks: Yes This visit was conducted pwqs-hk-pfaq with the use of audio and video technology using DBVu between patient and the provider for a virtual visit. Verbal consent to provide and bill this service was obtained on: 11/23/22 No signature was obtained due to the COVID-19 pandemic. SUBJECTIVE CC: Chief Complaint Patient presents with Therapy Telehealth Audio/video Visit WebEx HPI: Mary Leal is a 52 y.o. female presenting to the [facility] on 11/23/22 for management [...] , Rfl: cholecalciferol (Vitamin D-3) 50 MCG (1999 UT) tablet, Take by mouth in the [...] Disp: , Rfl: l (more content not included)...[facility]01-17-2023 NoteHNO ID: [id number] Author: Lilli Goldberg Service: ? Author Type: ? Type: Progress Notes Filed: 11/22/2022 3:34 PM Note Text: Patient calling to verify that monitor was received at A30. Monitor was sent via Fed Ex on 11/19/22. Patient is requesting a confirmation.[facility]01-17-2023 Miscellaneous Notes* Telephone Encounter - Lilli Goldberg - 11/22/2022 3:37 PM EST Patient calling to verify that Smart Pill monitor was received at A30. Monitor was sent via [employer] on 11/19/22. Patient is requesting a confirmation. documented in this encounterGalion Hospital01-16-2023 Miscellaneous Notes* Telephone Encounter - Uziel Serrano RN - 11/21/2022 9:11 AM EST [employer] message sent to patient. Prior Sleep study forwarded to MD to review, Order pended for PAP-titration for provider to review and sign if necessary. documented in this encounterGalion Hospital01-16-2023 History and physical note * Yodit Back PA-C - 11/21/2022 8:00 AM EST PREANESTHESIA CONSULT CLINIC TELEHEALTH VISIT Patient has been identified by name and date of : Yes This is a virtual visit using [employer] video visit. It require patient-provider interaction for [...] in the AM and 4 mg PM daaeleqdqbv-hiuiagsds-ksipsyeb (TRELEGY ELLIPTA) 100-62.5-25 mcg Inhale 1 Puff as instructed once daily. No current facility-administered medications for this visit. COVID VACCINATION STATUS: Fully vaccinated REVIEW OF SYSTEMS: Pain Assessment: General: No weight loss, malaise or fevers. Neuro: No history of TIA's, stroke, PLASTER FOREMAN tumor, impaired sensorium, hemiplegia, paraplegia or quadraplegia. [...] requiring medication, no history of angina, CHF, RI, cardiac surgery or stents. Denies rest pain, gangrene or revascularization/amputation for PVD. No history of cardiovascular symptoms or problems. + HLD GI: See HPI : No history of dysuria, frequency or incontinence,, stones or chronic kidney disease ALTERNATIVE ENERGY ENGINEER: Negative for abnormal vaginal bleeding, abnormal vaginal [...] 8:07 AM PAGER/CONTACT #: documented in this encounterGalion Hospital01-13-2023 NoteDepartment of Psychiatry Outpatient Progress Note Time In: 3 PM Time Out: 3:30 PM Present At Visit: Patient Clinician Location: Clinician in office Patient Location: In office Subjective CC: Chief Complaint Patient presents with Telehealth Audio/video Visit [email or web address] HPI: Mary Leal is a 52 y.o. female presenting to the [facility] on 11/04/2022 for management [...] her previous provider prior to coming to [facility]. Primarily, she (more content not included)...[facility]01-12-2023 NoteHNO ID: [id number] Author: Berta Ann RN Service: ? Author Type: Registered Nurse Type: Progress Notes Filed: 11/17/2022 7:06 PM Note Text: Procedure pended for 12-07-22. Pre-op instructions reviewed with pt. Pt aware of need for PACC. Post op appt scheduled. Direct number provided for future reference. No other questions at this time. Berta HENSON, RN Specialty Care CoordinatorAv[facility]01-[facility]-2023 NoteHNO ID: [id number] Author: Winston Hannah, DO Service: ? Author Type: Physician Type: Progress Notes Filed: 11/17/2022 7:06 PM Note Text: [facility] [place] Gastroparesis/Dysmotility Consultation SERVICE DATE: 11/17/2022 SERVICE TIME: 2:16 PM PRIMARY CARE PHYSICIAN: DO Isra Mauricio [facility] [address] [place] [address] My final recommendations will be communicated back [...] surgical therapy for gastroparesis in detail. Mary Zoya Elvis is candidate for upper endoscopy with pyloric [...] was obtained. NAME: Mary Leal CLINIC NO: [id number] DATE OF SERVICE: November 17, 2022 This is an initial consultation for Mary Zoya Elvis who was referred to me by Dr. [...] and some bloating. Duration of symptoms (months): 6012-6414 Weight changes in last 3 months: Steady [...] 16.56 Motility index: 1 (more content not included)...[facility] 11-17-2022 Miscellaneous Notes* Addendum Note - [...] PSG results. * Telephone Encounter - Barber GuamanMartinez - 11/02/2022 12:33 PM EST Received from [facility] Report via fax. 8 pages indexed to chart. documented in this encounterGalion Hospital01-12-2023 NoteHNO ID: [id number] Author: Annmarie Gillespie RN Service: ? Author [...] complete. You will be wearing a Data Hearing Therapist around your neck like a necklace during the test. You must keep this near you at all times. The Data Hearing Therapist has an EVENT button. You will be [...] is inside your body. Return the Data Hearing Therapist [facility] after your test is completed. Brittanie Gillespie RNAv[facility]01-12-[facility]23 History of Present illness Narrative* Annmarie [...] complete. You will be wearing a Data Hearing Therapist around your neck like a necklace during the test. You must keepthis near you at all times. The Data Hearing Therapist has an EVENT button. You will be [...] is inside your body. Return the Data Hearing Therapist to the [facility] after your test is completed. Brittanie Gillespie RN documented in this encounterGalion Hospital01-11-2023 NotePsychiatry Psychotherapy Progress Note Time In: 8:30 AM Time Out: 9:23 AM Present At Visit: Patient Clinician Location: Clinician in office Patient Location: Via telehealth in [place] Telehealth Information Telehealth Mode: Webex (video + audio) The patient was notified that using 3rd libertarian telecommunication application is not HIPAA compliant and may carry some privacy risks: Yes Video Consent Date of Telehealth Visit: 11/16/22 The patient was notified that using 3rd libertarian telecommunication application (e.g. Activaero) is not HIPAA compliant and may carry some privacy risks: Yes This visit was conducted wijz-so-efjl with the use of audio and video technology using DBVu between patient and the provider for a virtual visit. Verbal consent to provide and bill this service was obtained on: 11/16/22 No signature was obtained due to the COVID-19 pandemic. SUBJECTIVE CC: Chief Complaint Patient presents with Therapy Telehealth Audio/video Visit WebEx HPI: Mary Leal is a 52 y.o. female presenting to the [facility] on 11/16/22 for management [...] stomach pain. She reported she goes to [place] tomorrow for testing. Pt appeared visibly fatigued [...] skin every 12 (tw (more content not included)...[facility]01-09-2023 NotePROCEDURE: XR FOOT RT MIN 3 VIEWS [...] SOFT TISSUES:No visible soft tissue swelling. Skin joshau have been removed. EFFUSION:None visible. OTHER: Negative. IMPRESSION: 1. Stable surgical changes without evidence of hardware failure or change in alignment. Electronically authenticated by: ZAIDA ACOSTA Date: 2022-11-14 10:39[facility]01-05-2023 NotePROCEDURE: XR FOOT RT MIN [...] Electronically authenticated by: NICKI DACOSTA Date: 2022-11-10 11:44[facility]01-05-2023 Miscellaneous Notes* Telephone Encounter - Annmarie Gillespie RN - 11/10/2022 9:07 AM EST Telephoned patient with SmartPill procedure appointment reminder/instructions. Brittanie Gillespie RN documented in this encounterGalion Hospital01-04-2023 Miscellaneous Notes* Telephone Encounter - Lilli Goldberg [...] to make it legit. documented in this encounterGalion Hospital01-04-2023 Miscellaneous Notes* Telephone Encounter - Mick Doll - 11/09/2022 9:47 AM EST SENT PATIENTS RX TO PREFERRED LOCATION [facility] [phone] Mick Doll CMA documented in this encounterGalion Hospital01-03-2023 Miscellaneous Notes* Telephone Encounter - Lilli Goldberg - 11/08/2022 11:15 AM EST Per Soumya in provider services at [facility]. No prior auth is needed,coverage is active, patient can proceed with Smart Pill. Placed a new referral. Call Ref # [id number] * Telephone Encounter - Lilli Goldberg - 11/02/2022 3:51 PM EST Spoke with patient. Smart Pill is a covered benefit. Sent email to Smart Pill flight crew scheduler and [facility] to assist in scheduling Smart Pill in November. * Telephone Encounter - JAHAIRA Rosales - 11/01/2022 5:01 PM EST Images from the original note were not included. Brook Jane Pss You 11 minutes ago (4:49 PM) [...] procedure, she can call Earlene Martin at [phone]. documented in this encounterGalion Hospital12-30-2022 [id number] Mary Leal 1970 F Date Provider Department Center 11/04/2022 ANNETTE BRYAN [facility] PS[facility]CH Gerardo Heal No family history on file Level of Service:01652 [place] OFFICE/OUTPATIENT ESTABLISHED [facility] 40-54 MIN Reason for Visit and Comments: Med Management [[id number]][facility]12-30-2022 Note Department of Psychiatry Outpatient Progress Note Time In: 2 PM Time Out: 3 PM Present At Visit: Patient and Spouse Clinician Location: Clinician in office Patient Location: In office Subjective CC: Chief Complaint Patient presents with Med Management HPI: Mary Leal is a 52 y.o. female presenting to the [facility] on 11/04/2022 for management [...] her previous provider prior to coming to [facility]. Primarily, she struggles with task switching, rumination, and lack of emotional regulation at this time. We discussed the risks, benefits, side effects, and alternatives to Vyvanse including insomnia, irritability, increased blood pressure, and appetite suppression, and she voiced understanding and agreement. Start clonidine 0.1 mg at nighttime for sleep (more content not included)... [facility]12-19-2022 Miscellaneous Notes* Telephone Encounter - Ban Benton [...] AM EST Mary Leal is calling Isra Masters, DO today with concern regarding her smart pill patient stated she has been calling and there has not been a response patient would like to know what would Dr. Masters like her to do so she can get scheduled with them please advise. Patient has been identified by name and birthdate. Person calling: self Call patient at: at home [phone] (home) [phone] (cell) Closing statement: Symptom Call: Thank you for calling [facility], your call is very important. A nurse will call in approximately 2-4 hours during business hours. If this is an emergency, please contact 911. Nati Hernandez documented in this encounterGalion Hospital12-13-2022 Miscellaneous Notes* Telephone Encounter - Brooklyn Valle LPN - 10/18/2022 2:43 PM EST Requested Prescriptions Pending Prescriptions Disp Refills Dexlansoprazole 60 mg CpDM [Pharmacy Med Name: DEXLANSOPRAZOLE DR 60 MG CAP] 30 capsule 5 Sig: take 1 capsule by mouth before breakfast Patient last seen 10/11/2022 documented in this encounterGalion Hospital12-12-2022 NotePROCEDURE: XR FOOT RT MIN 3 VIEWS, [...] Electronically authenticated by: NICKI DACOSTA Date: 2022-10-17 18:06[facility]12-12-2022 NotePROCEDURE: XR FOOT RT MIN [...] Electronically authenticated by: NICKI DACOSTA Date: 2022-10-17 18:06[facility]12-12-2022 Miscellaneous Notes* Telephone Encounter - Mick Doll - 10/17/2022 9:17 AM EST Faxed order, office notes, demographics, and sleep study to: DME name: [facility] fax: [phone] [facility] ph: ALSO SENT A REQUEST FOR PTS PSG FROM [facility] IN [place] documented in this encounterGalion Hospital12-09-2022 NoteHNO ID: [id number] Author: Yoni Tuttle MD Service: ? Author Type: Physician Type: Progress Notes Filed: 10/14/2022 5:04 PM Note Text: [facility] New Patient Evaluation Virtual [...] O2 minimum 89%. 09/22/2022: PSG at [facility]: records not available at this time but per pt report: AHI 27/h INSOMNIA: Difficulty falling asleep and staying asleep. WASO is worse than Sleep onset insomnia Predisposing factors: Anxiety and depression Precipitating factors: none Perpetuating factors: CHUCKIE, menopause, father passed with depression and anxiety, RLS Tried: belsomra, trazodone, ambien, doxepin Ambien: ADR on parasomnia Tried CBTi - Dr. Linda at [facility] - 6 mo She reports having an [...] or near accidents due to drowsy drivin [place] Sleepiness Scale 10/07/2022 Score 13 (present daytime [...] cervical neck surgery PAST (more content not included)...[facility]12-06-2022 History of Present illness Narrative* Isra Masters, - 10/11/2022 10:28 AM EST FOLLOW UP [...] (FLONASE) 50 mcg/actuation nasal spray Use 1 [place] in each nostril once daily. carBAMazepine XR (TEGRETOL XR) 400 mg 12 hr tablet Take 400 mg by mouth q 12 HR. ARIPiprazole (ABILIFY) 30 mg tablet Take 30 mg by mouth once daily. albuterol HFA (PROVENTIL HFA, VENTOLIN HFA) 90 mcg/actuation inhaler inhale 2 puffs by mouth INTO THE LUNGS every 4 hours if needed damoyobdfls-msuctucrk-ypxspntk (TRELEGY ELLIPTA) 100-62.5-25 mcg Inhale 1 Puff [...] no edema RESPIRATORY: No dyspnea : neg ALTERNATIVE ENERGY ENGINEER: neg The remainder of the review of [...] Isra Masters DO 10/11/2022 documented in this encounterGalion Hospital12-05-2022 Evaluation note* Encounter Date Diagnosis Assessment Notes [...] for rotator cuff healing or recurrent tear [employer] Other 12-01-2022 Evaluation note* Encounter Date Diagnosis [...] note writ ten by Wanda Yang LPN, Billing Typist. Edited and approved by Dr. Annette Harris MD. [employer] Other 11-17-2022 Evaluation note* Encounter Date Diagnosis [...] educated regarding the risks and benefits of terminal superintendent opioid use. She understands the associated risks [...] note writ ten by Lupillo Amezquita MA, Billing Typist. Edited and approved by Dr. Annette Harris MD. [employer] Other 11-17-2022 Evaluation note* Encounter Date Diagnosis Assessment Notes Treatment Notes Treatment Clinical Notes Sep, Lumbosacral spondylosis without myelopathy (ICD-10 - M47.817) [employer] Other 11-09-2022 Evaluation note* Encounter Date Diagnosis [...] note writ ten by Wanda Yang LPN, Billing Typist. Edited and approved by Dr. Annette Harris MD. [employer] Other 09-21-2022 NotePROCEDURE: XR ANKLE RT MIN 3 VIEWS, XR FOOT RT MIN 3 VIEWS COMPARISON: 01/06/2021 HISTORY: Pain of right ankle joint FINDINGS: BONES:Remote osteotomy head of the first metatarsal fixed with a single screw. No acute fracture or dislocation. SOFT TISSUES:Negative. No visible soft tissue swelling. EFFUSION:None visible. OTHER: Negative. IMPRESSION: No acute abnormality Electronically authenticated by: NICKI DACOSTA Date: 2022-07-27 19:[address] [place], [place] [address]9-21-2022 NotePROCEDURE: XR ANKLE RT MIN 3 VIEWS, XR FOOT RT MIN 3 VIEWS COMPARISON: 01/06/2021 HISTORY: Pain of right ankle joint FINDINGS: BONES:Remote osteotomy head of the first metatarsal fixed with a single screw. No acute fracture or dislocation. SOFT TISSUES:Negative. No visible soft tissue swelling. EFFUSION:None visible. OTHER: Negative. IMPRESSION: No acute abnormality Electronically authenticated by: NICKI DACOSTA Date: 2022-07-27 19:[address] [place], [place] [address]9-20-2022 Miscellaneous Notes* Telephone Encounter - Silvia Ybarra - 07/26/2022 2:56 PM EDT PA for Dexlansoprazole initiated electronically. 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 carBAMazepine XR [...] which included preparing to see the patient, xwhf-ia-tbwf patient care, completing clinical documentation, obtaining and/or reviewing separately obtained history, performing a medically appropriate examination, counseling and educating the pat ient/family/caregiver, ordering medications, tests, or procedures, and care coordination (not separately reported). Mary Obrien MD Colorectal Surgery documented in this encounterGalion Hospital09-20-2022 Nurse Note* Re Sierra MA - 07/26/2022 11:12 AM EDT What is the reason for your visit today? Established patient presents for post op. Who is your referring physician? Are you having poor oral intake? NO Have you had unintentional weight loss of 15 lbs/7 Kg in the last 3-6 months? NO Bowels: Wound: none Temperature: No Drains: No documented in this encounterGalion Hospital08-04-2022 NotePROCEDURE: In the coronal projection, without intravenous [...] this time Report reported and signed by Quinton Carson on 06/09/2022 [address] Ulzlowqppf03-15-9002 Miscellaneous Notes* Telephone Encounter - Raquel Sebas - 06/07/2022 3:34 PM EDT Patient needs RX sent to [facility] in [facility]. The previous was sent to pharmacy which she cannot get to for its an hour away from her house. * Telephone Encounter - Raquel Sebas - 06/06/2022 4:00 PM EDT Patient calling in in regards to prescription refill request from last week. * Telephone Encounter - Raquel Katetroy - 05/30/2022 8:12 AM EDT Patient's request for medication is as follows: Pending Prescriptions Disp Refills LACTOBACILLUS RHAMNOSUS GG 10 BILLION CELL CAPSULE 30 capsule 0 Sig: Take 1 capsule by mouth once daily. OLGA: No Prescription(s) as above. Please process accordingly. Raquel Mullen documented in this encounterGalion Hospital07-21-2022 Evaluation note* Encounter Date Diagnosis Assessment Notes [...] note writ ten by Lupillo Amezquita MA, Billing Typist. Edited and approved by Dr. Annette Harris MD. [employer] Other 07-05-2022 Evaluation note* Encounter Date Diagnosis [...] Patient care instructions given in writing by [facility] document. [employer] Other 06-28-2022 Miscellaneous Notes* Telephone Encounter - [...] concerns at this time. documented in this encounterGalion Hospital06-21-2022 Miscellaneous Notes* Telephone Encounter - See Wong [...] procedure on 03/28. Thanks! documented in this encounterGalion Hospital06-17-2022 History of Present illness Narrative* Jessi Sheets APRN.KWESI - 04/22/2022 12:20 PM EDT COLORECTAL SURGERY [...] (FLONASE) 50 mcg/actuation nasal spray Use 1 Cheyenne in each nostril once daily. carBAMazepine XR [...] THE LUNGS every 4 hours if needed tljcxazluoj-ohksuhwjo-capulcfu (TRELEGY ELLIPTA) 100-62.5-25 mcg Inhale 1 Puff [...] morbidity, mortality and/or complications of treatment plan: jesu Sheets APRN.COAL WEIGHER Colorectal Surgery documented in this encounterGalion Hospital06-17-2022 Nurse Note* Mary Mena MA - 04/22/2022 12:06 PM EDT .What is the reason for your visit today? Post op Who is your referring physician? Self Are you having poor oral intake? NO Have you had unintentional weight loss of 15 lbs/7 Kg in the last 3-6 months? NO Bowels: regular Wound: none Temperature: No Drains: No documented in this encounterGalion Hospital06-02-2022 Miscellaneous Notes* Telephone Encounter - Rachael - 04/07/2022 12:35 AM EDT Record ID: [id number] Patient name: Mary Leal Date: April 06, [...] likely is it that you would recommend [facility] to a friend or family member? -> likely Please tell me what you liked best about your hospital experience: -> The nurses documented in this encounterGalion Hospital05-31-2022 NoteHNO ID: [id number] Author: Pravin Ladd MD Service: Colorectal Author Type: Resident Type: Progress Notes Filed: 04/05/2022 7:52 AM Note Text: COLORECTAL SURGERY PROGRESS NOTE Mary Leal [id number] ASSESSMENT AND PLAN Mary Leal is a [...] - General Pravin Ladd MD General Surgery residentChelsea Naval HospitalTxkvqorx90-24-9652 NoteHNO ID: [id number] Author: Nita Lamas MD Service: Colorectal Author Type: Fellow Type: Progress Notes Filed: 04/04/2022 9:40 AM Note Text: COLORECTAL SURGERY PROGRESS NOTE Mary Leal [id number] ASSESSMENT AND PLAN Mary Leal is a [...] Nita Lamas MD Colorectal Fellow 04/04/2022 9:40 [facility]05-29-2022 NoteHNO ID: [id number] Author: Pravin Ladd MD Service: Colorectal Author Type: Resident Type: Progress Notes Filed: 04/03/2022 8:03 AM Note Text: COLORECTAL SURGERY PROGRESS NOTE Mary Leal [id number] ASSESSMENT AND PLAN Mary Leal is a [...] at 04/03/2022 0800 Last data filed at 04/02/20221954 Gross per 24 hour Intake 2383 ml [...] - General Pravin Ladd MD General Surgery ResidentChelsea Naval HospitalDhocxysp09-81-0761 NoteHNO ID: [id number] Author: Nancy Cadena MD Service: Colorectal Author Type: Resident Type: Progress Notes Filed: 04/02/2022 8:34 AM Note Text: COLORECTAL SURGERY PROGRESS NOTE Mary Leal [id number] ASSESSMENT AND PLAN Mary Leal is a [...] Nancy Cadena MD General Surgery Resident, PGY-2 [id number] [id number] NoteHNO ID: [id number] Author: Nancy Cadena MD Service: Colorectal Author [...] 2022 COLORECTAL SURGERY PROGRESS NOTE Mary Leal [id number] ASSESSMENT AND PLAN Mary Leal is a [...] Nancy Cadena MD General Surgery Resident, PGY-2 [id number] [id number] NoteHNO ID: [id number] Author: Yolanda Lamb MD Service: Colorectal Author Type: Resident Type: Progress Notes Filed: 03/31/2022 9:08 AM Note Text: COLORECTAL SURGERY PROGRESS NOTE Mary Leal [id number] ASSESSMENT AND PLAN Mary Leal is a [...] RESECTION AND ANASTOMOSIS - General Yolanda Lamb MDChelsea Naval HospitalAggwxleh01-36-2303 NoteHNO ID: [id number] Author: Pravin Ladd MD Service: Colorectal Author Type: Resident Type: Progress Notes Filed: 03/30/2022 9:02 AM Note Text: Attestation signed by Mary Obrien MD at 03/30/2022 4:[address] [facility] STAFF PHYSICIAN NOTE OF PERSONAL INVOLVEMENT IN [...] March 30, 2022 COLORECTAL SURGERY PROGRESS NOTE Mary Leal [id number] ASSESSMENT AND PLAN Mary Leal is a 51 year old female with PMHx Asthma, HTN, BPD, Dyslipidemia and colonic inertia who is now s/p Hand assisted TAC, EI takedown + OANH 03/28 - D/C PASSEMENTERIE WORKER - Advance to GI soft diet - [...] RESECTION AND ANASTOMOSIS - General Pravin Ladd MDChelsea Naval HospitalUugvxqjf87-46-1194 NoteHNO ID: [id number] Author: ELIZABETH Dias Service: Care Management Author Type: Record Producer Type: Care Mgt Initial Assessment Filed: 03/29/2022 [...] time ADVANCE DIRECTIVES Current Advance Directive: None Assistant Counsel Attempted to Assist with AD Completion: Yes [...] Housing Stability: Not on file PATIENT SCREEN 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 Stated Goals: To be cured/healed Under the [...] March 29, 2022 TIME: 3:45 PM PHONE: [phone] Lpgjplry07-36-1879 NoteHNO ID: [id number] Author: Pravin Ladd MD Service: Colorectal Author Type: Resident Type: Progress Notes Filed: 04/01/2022 5:50 AM Note Text: COLORECTAL SURGERY PROGRESS NOTE Mary Leal [id number] ASSESSMENT AND PLAN Mary Leal is a 51 year old female with PMHx Asthma, HTN, BPD, Dyslipidemia and colonic inertia who is now s/p Hand assisted TAC, EI takedown + OANH 03/28 - PASSEMENTERIE WORKER for pain control - Magnesium replacement for [...] RESECTION AND ANASTOMOSIS - General Pravin Ladd MDChelsea Naval HospitalBgdqaqbb28-13-9651 NoteHNO ID: [id number] Author: Nathanael Craig DO Service: Anesthesiology Author Type: Anesthesiologist Type: Anesthesia Procedure Notes Filed: 03/28/2022 4:16 PM Note Text: ANESTHESIOLOGY PROCEDURE NOTE Peripheral Nerve Block General Information Procedure Start Time/Medication Administration: 03/28/2022 3:50 PM Procedure End time: 03/28/2022 3:55 PM Patient location during procedure: OR Timeout Performed Pre-procedure: timeout performed Consent Obtained: Yes 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: care prepared foods service team member and arm band Reason for block: post-op [...] 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 and care prepared foods service team member Reason for block: post-op pain management/at surgeon's [...] March 28, 2022 TIME: 4:14 PM CSN: [id number] [id number] NoteHNO ID: [id number] Author: Carmen Stanley APRN.CREDIT COLLECTIONS SPECIALIST Service: Anesthesiology Author Type: Nurse Care Professionals Type: Anesthesia Procedure Notes Filed: 03/28/2022 9:49 AM Note Text: ANESTHESIOLOGY PROCEDURE NOTE Airway General Information Procedure Start Time/Medication Administration: 03/28/2022 9:21 AM Patient location during procedure: OR 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, care prepared foods service team member and patient Staffing CREDIT COLLECTIONS SPECIALIST: Carmen Stanley APRN.CREDIT COLLECTIONS SPECIALIST Performed by: CREDIT COLLECTIONS SPECIALIST Indications and Patient Condition Preoxygenated: yes [...] March 28, 2022 TIME: 9:49 AM CSN: [id number] NoteHNO ID: [id number] Author: Carmen Stanley APRN.CREDIT COLLECTIONS SPECIALIST Service: Anesthesiology Author Type: Nurse Care Professionals Type: Anesthesia Procedure Notes Filed: 03/28/2022 9:49 [...] March 28, 2022 TIME: 9:48 AM CSN: [id number] Ljcecnul87-25-5628 Miscellaneous Notes* Telephone Encounter - See Wong [...] colon. Would like a call back at [phone] documented in this encounterGalion Hospital05-10-2022 Miscellaneous Notes* Telephone Encounter - Jennie Moreno RN - 03/15/2022 2:39 PM EDT Outside medical record EGD H Pylori biopsy received by fax. Scanned into [employer] under scanned documents. Hard copy handed to Dr. Masters. Per Dr Masters- please call patient and let her know the H Pylori biopsy is negative. Called patient . Message relayed. No questions at this time. * Telephone Encounter - Karthikeyan Morrissey RN - 03/15/2022 2:21 PM EDT Called [employer] and I was transferred to medical records. Requesting a cover sheet with the request result be faxed to them at [phone]. H Pylori result request faxed with confirmation. * Telephone Encounter - Karthikeyan Morrissey RN - 03/15/2022 2:21 PM EDT Images from the original note were not included. DO Leo Mariano Ddsi Clinical Pool Please contact [employer] [phone] to see if the H pylori biopsy is back yet from her EGD there documented in this encounterGalion Hospital05-10-2022 Evaluation note* Encounter Date Diagnosis Assessment Notes [...] note writ ten by Wanda Yang LPN, Billing Typist. Edited and approved by Dr. Annette Harris MD. [employer] Other 05-10-2022 Miscellaneous Notes* Telephone Encounter - Silvia Amada - 03/15/2022 1:24 PM EDT PA for Dexilant renewal initiated through [employer]. Awaiting response ID# [id number] Rx BIN [id number] Rx PCN [id number] Rx Grp [id number] documented in this encounterGalion Hospital05-10-2022 Miscellaneous Notes* Telephone Encounter - See Wong RN - 03/15/2022 9:28 AM EDT She called the office with complaints of dark red blood in her ostomy bag for the last 2 weeks. [place]was down in [place] when it started. She had an EGD in [place] that showed gastritis. She followed up with [...] concerns at this time. documented in this encounterGalion Hospital05-10-2022 History of Present illness Narrative* Isra Masters [...] seem be musculoskeletal in nature.EGD done in [facility] showed some gastritis and duodenitis. Current [...] (FLONASE) 50 mcg/actuation nasal spray Use 1 Cheyenne in each nostril once daily. carBAMazepine XR [...] THE LUNGS every 4 hours if needed mfyycrluddi-csjlhtakt-wspanrfy (TRELEGY ELLIPTA) 100-62.5-25 mcg Inhale 1 Puff [...] no edema RESPIRATORY: No dyspnea : neg ALTERNATIVE ENERGY ENGINEER: neg The remainder of the review of [...] Isra Masters DO 03/15/2022 documented in this encounterGalion Hospital05-09-2022 Instructions* Patient Instructions* Urmila Alexander APRN.COAL WEIGHER - 03/14/2022 10:43 AM EDT PATIENT PREOPERATIVE INSTRUCTIONS Mary Obrien MD has scheduled you for your procedure at this [facility] center: [facility]: [phone] --[address] [address]. Please check in on the1st floor at [...] Procedures: - YOU MUST HAVE A RESPONSIBLE LUMBER STRAIGHTENED TAKE YOU HOME. A JOCKEY'S AGENT OR DEMOGRAPHIC ANALYST CANNOT BE MADE A RESPONSIBLE LUMBER STRAIGHTENED. - We recommend that a responsible person [...] Advance Directive, please fax a copy to [phone] or email to for it to be [...] your chart that day. documented in this encounterGalion Hospital05-09-2022 History and physical note * Urmila Alexander APRN.CNP - 03/14/2022 10:30 AM EDT Images from the original note were not included. HISTORY AND PHYSICAL EXAMINATION SERVICE DATE: 03/14/2022 SERVICE TIME: 11:03 AM PRIMARY CARE PHYSICIAN: Eliceo Willams DO REASON FOR VISIT: Mary Zoya Ornelasgs is a 51 year old female who [...] vaccine, age 12+ yr (PFIZER-BIONTECH - PURPLE TOP) 05/11/2021 Imm Admin: COVID-19 vaccine, age 12+ yr (PFIZER-BIONTECH - PURPLE TOP) 04/20/2021 Imm Admin: COVID-19 vaccine, age 12+ yr (PFIZER-BIONTECH - PURPLE TOP) CHIEF COMPLAINT: reverse ileostomy HPI: Pt. presenting [...] fevers. Neurological: No history of TIA's, stroke, PLASTER FOREMAN tumor, impaired sensorium, hemiplegia, paraplegia orquadraplegia. No [...] > 1 time per night or hematuria. ALTERNATIVE ENERGY ENGINEER: Negative for abnormal vaginal bleeding, abnormal vaginal [...] every 4 hours if needed Taking Yes bnkjwxwfjzs-kadvbcjdy-jyqlkvmd (TRELEGY ELLIPTA) 100-62.5-25 mcg Inhale 1 Puff [...] (FLONASE) 50 mcg/actuation nasal spray Use 1 Cheyenne in each nostril once daily. No medication [...] or any previous visit (from the past 28446 hour(s)). EKG: Assessment HTN (hypertension) Assessment: Managed [...] of difficult airway No abnormal airway history [id number] Score: Age: <65 Sex: Female Hypertension history: [...] 10:30 AM PAGER/CONTACT #: documented in this encounterGalion Hospital04-25-2022 Miscellaneous Notes* Telephone Encounter - Isra Masters [...] it legit. Please advise. documented in this encounterGalion Hospital04-15-2022 Instructions* Patient Instructions* Nelsy Chávez APRN.CNP - 02/18/2022 1:18 PM EDT Healing as expected from surgery. You have a pinpoint area of suture just under the vaginal epithelium surface that may need more time to fully heal. Please call the office if you would like to try vaginal estrogen cream or with any questions/concerns. documented in this encounterGalion Hospital04-15-2022 History of Present illness Narrative* Nelsy Chávez [...] no Pain: no Abnormal Vaginal Discharge: no ALTERNATIVE ENERGY ENGINEER HISTORY: Last pap: cannot remember; Last mammogram: She has never had a mammogram LMP: No LMP recorded. Patient has had a hysterectomy.; Menopause n/a: Menstrual history: NA; Deliveries: I have confirmed and edited as necessary, the PFSH obtained by others. Nelsy Chávez APRN.COAL WEIGHER Skin Former offered: Patient declines. OBJECTIVE: There were no [...] if this helps. She is traveling to [place] to see her ailing father for two weeks and would like to wait for now to see if things resolve. She knows she can call the office if she changes her mind and would like to trial vaginal estrogen Nelsy Chávez APRN.KWESI documented in this encounterGalion Hospital04-08-2022 History of Present illness Narrative* Flaca Bartholomew, [...] SPORTS THERAPY PHYSICAL THERAPY TREATMENT NOTE ASSESSMENT: Mray Leal tolerated the session with no issues. [...] 15 Flaca Bartholomew PT documented in this encounterGalion Hospital04-05-2022 Nurse Note* Re Sierra MA - 02/08/2022 [...] Temperature: No Drains: No documented in this encounterGalion Hospital04-05-2022 History of Present illness Narrative* Mary Obrien MD - 02/08/2022 2:40 PM EDT COLORECTAL SURGERY February 08, 2022 Mary Leal Chief Complaint: follow up History of Present Illness: Maryjose Ornelasgs is a 51 year old female presents [...] LAVH 10/2015 for endometriosis, has remaining both Current [...] (FLONASE) 50 mcg/actuation nasal spray Use 1 Cheyenne in each nostril once daily. carBAMazepine XR [...] THE LUNGS every 4 hours if needed muceyjkkmzn-ydeyogyki-ruhxmmll (TRELEGY ELLIPTA) 100-62.5-25 mcg Inhale 1 Puff [...] medical complications of surgery including DVT/PE, PNA, RI, stroke, and . The patient understands these risks and is in agreement with proceeding. Medical Decision Making: Data Reviewed: Tests & Documents Reviewed/ordered: Review of prior notes from myself, OR, Dr. Wang Review of prior operative reports I have discussed Mary Leal's treatment plan and/or results with the patient. Mary Obrien MD Colorectal Surgery documented in this encounterGalion Hospital04-05-2022 History of Present illness Narrative* Magali Mitchell APRN.[facility] - 02/08/2022 11:04 AM EDT Female Pelvic [...] you received about pain medications helpful? Yes Skin Former offered:Patient declines OBJECTIVE: BP 113/76 Pulse 74 [...] 6 month Patient expressed understanding. Magali Mitchell APRN.KWESI documented in this encounterGalion Hospital03-29-2022 Miscellaneous Notes* Telephone Encounter - Ban Benton LPN - 02/01/2022 11:08 AM EDT [facility] 8 Pharmacy and Rx request verified. Please file if appropriate. Thank you Ban Benton LPN documented in this encounterGalion Hospital03-28-2022 NoteHNO ID: [id number] Author: Newton Woodward PT Service: ? Author [...] THERAPY PHYSICAL THERAPY TREATMENT NOTE ASSESSMENT: Mary Kenny Elvis tolerated the session with no issues. She [...] to Home;Specialty Service Patient transferring care to: [facility]- Flaca Bartholomew SUBJECTIVE: Patient Reason for Visit: [...] (timed and untimed codes) : 40 Newton Woodward PT, [place]03-28-2022 History of Present illness Narrative* Newton Woodward, PT - 01/31/2022 10:42 AM EDT Episode Visit Count: 3 Therapist That Will Oversee The Plan Of Care: La then transfer to Flaca aBrtholomew Start of Care Date: 01/18/22 Onset Date: [...] to Home;Specialty Service Patient transferring care to: [facility]- Flaca Bartholomew SUBJECTIVE: Patient Reason for Visit: [...] (timed and untimed codes) : 40 Newton Woodward PT, DPT documented in this encounterGalion Hospital03-21-2022 NoteHNO ID: [id number] Author: Newton Woodward PT Service: ? Author Type: Physical Therapist Type: Progress Notes Filed: 01/24/2022 1:23 PM Note Text: Episode Visit Count: 2 Therapist That Will Oversee The Plan Of Care: La ramirez transfer to Flaca Bartholomew Start of Care Date: 01/18/22 Onset Date: 12/24/21 Plan of Care Certification Date: 01/18/22 Next Certification Due Date: 03/19/22 Patient Identified by Name and Date of : Yes REHABILITATION AND SPORTS THERAPY PHYSICAL THERAPY TREATMENT NOTE ASSESSMENT: Mary D Elvis tolerated the session with no issues. She [...] untimed codes) : 45 Newton Woodward PT, [place]03-15-2022 NoteHNO ID: [id number] Author: Jessi Isaacs, PT Service: ? Author Type: Physical Therapist Type: Progress Notes Filed: 01/18/2022 1:56 PM Note Text: Episode Visit Count: 1 Therapist That Will Oversee The Plan Of Care: La then transfer to Ralphsaint paulFlaca Start of Care Date: 01/18/22 Onset Date: [...] Planned: 8 Planned Treatment Interventions: Therapeutic exercise (85947);Neuromuscular re-education (36436);Manual therapy (25167);Therapeutic activities (55715);Self-fpc management (82299);Patient/Family/Caregiver Education PLAN FOR NEXT VISIT: PFM dynamics; biofeedback Patient demonstrates good understanding of plan of care and treatment. The above goals and plan of care were discussed and agreed upon by patient/family. Transfer of Care Due To: Closer to Home (patient to transfer in February 2022) Patient transferring care to: [facility]- Flaca Bartholomew SUBJECTIVE: Mary Leal is a [...] function/quality of life. 52 (more content not included)..[facility]02-21-2022 NoteHNO ID: [id number] Author: Moni Munguia RN Service: Care Management Author Type: Registered Nurse Type: Care Mgt Progress Note Filed: 12/27/2021 4:17 PM Note Text: CARE MANAGEMENT DISCHARGE NOTE SERVICE DATE: 12/27/2021 SERVICE TIME: 4:14 PM LOS: 3 days Admission Date: 12/24/2021 DISCHARGE ARRANGEMENT (list agency and phone number) Discharge Arrangement: Home with Home Health Provider Name: [address] CAREGIVER ASSESSMENT: HANDOFF COMMUNICATION: Handoff to: Primary Care Physician Primary Care Physician Name/Phone: Eliceo Willams Jr [phone] TRANSPORTATION ARRANGEMENTS: Transportation Arrangements: N/A The Pt is accepted by [address] for new ostomy care. The SOC will be within 24 to 48 hrs. The pt will be contacted directly with the SOC. The Pt verbalized agreement with this dc plan. SIGNATURE: Moni Munguia RN PATIENT NAME: Mary Leal DATE: December 27, 2021 TIME: 4:14 PM PAGER/CONTACT #: [phone] Estyixnm84-00-1212 NoteHNO ID: [id number] Author: Parish Celeste DO Service: Colorectal Author [...] - Pain and nausea control -> d/c PASSEMENTERIE WORKER - D/c entereg - Culturelle - Continue [...] EXTREMITIES: well perfused and warm Date 12/26/21 07 - 12/27/21 0659 12/27/21 07 - 12/28/21 0659 Shift 6421-4489 9964-6559 8754-3540 24 Hour Total 0599-4044 8599-6483 8214-1470 24 Hour Total INTAKE PO 60 60 PO 60 60 IV 2099 2100 Volume (mL) (lactated ringers iv infusion) 2100 2099 Shift Total 2160 2160 OUTPUT Urine 9979 163 2055 2300 200 200 Void (ml) 300 1000 1300 200 200 Output ( Indwelling Urinary Catheter 12/24/21 Call 16 Fr) 1000 1000 Emesis 0 0 Emesis (ml) 0 0 Ostomy 250 125 375 Ileostomy 1 250 125 375 # of BMs Number of BMs 0 x 0 x Shift Total 9683 612 8003 2675 200 200 Weight (kg) 82.1 82.1 82.1 82.1 82.1 82.1 82.1 82.1 Recent Labs 12/26/21 0755 12/25/21 0606 WBC -- 5.96 HB -- 11.6 HCT -- 35.2* PLT -- 271 NA 139 141 K 4.0 4.0 CHLOR 102 104 CO2 28 28 CREAT 0.62* 0.72 BUN 10 12 GLUC 71 91 CA 8.5 8.5 Parish Celeste DO General Surgery, PGY-4 [id number] After 6 pm and on the weekends please page [phone] 12-26-2021 NoteHNO ID: [id number] Author: Jenifer Ayala MD Service: Colorectal Author Type: Fellow Type: Progress Notes Filed: 12/26/2021 12:13 PM Note Text: GENERAL SURGERY PROGRESS NOTE Name: Mary Leal 12/26/2021 12:11 PM Interval Events: Patient doing well post-operatively. No acute events overnight. Tolerating CLD diet without nausea or vomiting. Stoma productive of bilious fluid + gas Pain well controlled with PASSEMENTERIE WORKER + oral pain medication (feels most relief from po oxycodone). Assessment and Plan: 51 year old female with pelvic organ prolapse and chronic constipation, likely slow transit but with possible component of pelvic outlet obstruction and with discordant testing. Patient underwent laparoscopic protopexy on 12/24/21 surgery was uneventful. Post-operative course has been uncompliacted. Pain control- Tylenol Gabapentin Toradol PASSEMENTERIE WORKER: Dilaudid, tegretol, klonopin, requip, trintellix, oxycodone Cardiac- [...] any questions or concerns page FV Blue [id number] Objective Physical exam: BP 117/66 Pulse 77 [...] 0659 12/26/21 07 - 12/27/21 0659 Shift 4921-7917 3607-2500 7443-4108 24 Hour Total 8112-4606 4436-7653 0206-4702 24 Hour Total INTAKE PO 60 60 PO 60 60 IV 213 668 881 Volume (mL) (lactated ringers iv infusion) 213 668 881 Shift Total 273 668 941 OUTPUT Urine 485 422 7041 1000 Void (ml) 0 0 Output ( Indwelling Urinary Catheter 12/24/21 Call 16 Fr) 021 951 9282 1000 Emesis 0 0 Emesis (ml) 0 0 Ostomy 100 100 Ileostomy 1 100 100 # of BMs Number of BMs 0 x 0 x Shift Total 896 673 5382 1000 Weight (kg) 82.1 82.1 82.1 82.1 [...] Diagnosis Date Noted - Pelvic floor dysfunction [facility]21[id number] NoteHNO ID: [id number] Author: Sonido Owen MD Service: Colorectal Author [...] been uncompliacted. Pain control- Tylenol Gabapentin Toradol PASSEMENTERIE WORKER: Dilaudid, tegretol, klonopin, requip, trintellix Cardiac- Vitals: [...] Owen MD General Surgery PGY 2 Pg [phone] For any questions or concerns page FV Blue [id number] Objective Physical exam: BP 111/61 Pulse 86 Temp 37.1 ?C (98.7 ?F) (Axillary) Resp 18 Ht 162.6 cm (5' 4.02 ) Wt 82.1 kg (181 lb) SpO2 93% BMI 31.05 kg/m? General:Alert, Oriented x 3 and No acute distress Respiratory: Negative for SOB/ALLISON, cough or wheezing. on RA Abdomen: soft non-distended appropriately-tender, Incisions C/D/I, ostomy in place, pink viable Date 12/24/21 07 - 12/25/21 0659 12/25/21 07 - 12/26/21 0659 Shift 1855-0632 6231-6885 5580-4023 24 Hour Total 3493-6261 9479-7652 1689-0303 24 Hour Total INTAKE PO 240 120 360 PO 240 120 360 IV 3100 3100 Volume (mL) (lactated ringers iv infusion) 1800 1800 Volume (mL) (lactated ringers iv infusion) 1300 1300 Shift Total 3100 286 234 1427 OUTPUT Urine 200 440 244 1282 OR Urine Output 200 200 Output ( Indwelling Urinary Catheter 12/24/21 Call 16 Fr) 300 500 800 Emesis 0 0 0 Emesis (ml) 0 0 0 Ostomy 0 0 0 Ileostomy 1 0 0 0 # of BMs Number of BMs 0 x 0 x 0 x Blood 50 50 Estimated Blood loss 50 50 Shift Total 250 409 641 2992 Weight (kg) 82.1 82.1 82.1 82.1 82.1 [...] Diagnosis Date Noted - Pelvic floor dysfunction 12/24/2021[id number] NoteHNO ID: [id number] Author: Carmen Stanley APRN.CREDIT COLLECTIONS SPECIALIST Service: Anesthesiology Author Type: Nurse Care Professionals Type: Anesthesia Procedure Notes Filed: 12/24/2021 8:44 [...] December 24, 2021 TIME: 8:44 AM CSN: [id number] NoteHNO ID: [id number] Author: Carmen Stanley APRN.CRNA Service: Anesthesiology Author Type: Nurse Care Professionals Type: Anesthesia Procedure Notes Filed: 12/24/2021 8:44 AM Note Text: ANESTHESIOLOGY PROCEDURE NOTE Airway General Information Procedure Start Time/Medication Administration: 12/24/2021 8:22 AM Patient location during procedure: OR 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, 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 Edited and approved by Dr. Annette Harris MD. [facility] Other 11-01-2021 Evaluation note* Encounter Date Diagnosis [...] note writ ten by Lupillo Amezquita MA, Billing Typist. Edited and approved by Dr. Annette Harris MD. [employer] Other 10-14-2021 Evaluation note* Encounter Date Diagnosis [...] no improvement in 2 to 3 days. [employer] Other 10-08-2021 Evaluation note* Encounter Date Diagnosis [...] Patient care instructions given in writting by [facility] At Home document [employer] Other 10-07-2021 Evaluation note* Encounter Date Diagnosis [...] Aug, Other chronic pain (ICD-10 - G89.29) [employer] Other 09-22-2021 Evaluation note* Encounter Date Diagnosis [...] Jul, Other chronic pain (ICD-10 - G89.29) [employer] Other 03-01-2021 Note [id number]:127Filippo [facility] 01-04-2021 NoteCystoscopy with Botox injection [...] if you have a fever over 100 degrees.[facility] 11-11-2020 NoteChief Complaint Pt is here for [...] Contact Information Francie BENSON, Dawna Feldman [address] [place] [address]- [phone] Additional Instructions: F/u in 1yr. Patient Education Urinary Frequency I, Christy Gill , personally scribed for Dr. Marmolejo on 11/11/2020 12:07:15. Electronically signedby scribblanca Gill on 11/11/2020 12:07:15. Documentation recorded by the scribeChristy, accurately reflects [...] deficit disorder Bipolar disorder (more content not included)...[facility] Comment on above:Result Comment: Electronically Signed By: Dawna Marmolejo MD\.br\Date and Time Signed: 11/11/2111:16 EST\.br\Electronically Co-Signed By: Christy Gill MA\.br\Date and Time Co-Signed: 11/11/20 12:07 [id number]:127[facility] Narrative - Reported* MARY LEAL is being seen for an initial evaluation of. * 52-year-old female seen in cardiology consultation at the request of her primary care physician forelevated troponin while in [facility] this past spring that was associated with a GI bleed/gastritis. * Patient recently underwent large bowel resection details of which are unknown and I suspect possibly consistent with ulcerative colitis but again unknown pathology. She had a diverting colostomy with3 anastomosis performed. While in [place] with her GI bleed and primarily gastric [...] * I believe minor troponin elevation in [place] was simply at small type II non- RI troponin elevationrelated to inflammation and gastritis and [...] colectomy. She can follow-up as needed otherwise. -[facility] 250 DO Work Phone: Evaluation note* Diagnosis Pelvic floor dysfunction- Primary Pelvic muscle wasting Lack of coordination Follow-up examination after colorectal surgery Follow-up examination, following other surgery [facility] Diagnosis Gastroesophageal reflux disease, unspecified whether esophagitis present [facility]* Diagnosis Follow-up examination after colorectal surgery- Primary Follow-up examination, following other surgery documented in this encounter [facility] note* Diagnosis Post-operative state- Primary Other postprocedural status Yeast infection of the skin Candidiasis of skin and nails documented in this encounter [facility] note* Diagnosis Pelvic floor dysfunction- Primary Pelvic muscle wasting Lack of coordination Follow-up examination after colorectal surgery Follow-up examination, following other surgery documented in this encounter [facility] note* Diagnosis Postoperative state- Primary Other postprocedural status Attention to ileostomy ([facility]) Attention to ileostomy documented in this encounter [facility] note* Diagnosis Preop examination- Primary Preoperative examination, unspecified Attention to ileostomy ([facility]) Attention to ileostomy Primary hypertension Unspecified essential hypertension Gastroparesis Gastroesophageal reflux disease, unspecified whether esophagitis present Mild persistent asthma without complication Unspecified asthma Bipolar 1 disorder ([facility]) Bipolar I disorder, most recent episode (or current) unspecified Obesity (BMI 30.0-34.9) Obesity, unspecified Attention to ileostomy ([facility]) Attention to ileostomy documented in this encounter [facility] note* Diagnosis Gastroesophageal reflux disease, unspecified whether esophagitis present Chronic idiopathic constipation Unspecified constipation Attention to ileostomy ([facility]) Attention to ileostomy documented in this encounter [facility] note* Diagnosis Follow-up examination after colorectal surgery- Primary Follow-up examination, following other surgery Pelvic floor dysfunction Pelvic muscle wasting documented in this encounter [facility] noteNo InformationNohedrick medical center [employer] Other Evaluation noteNohedrick medical center [employer] Other Evaluation note* Diagnosis Follow-up examination after colorectal surgery- Primary Follow-up examination, following other surgery Periumbilical abdominal pain Abdominal pain, periumbilic Outlet dysfunction constipation Colonic inertia Other functional disorders of intestine documented in this encounter [facility] noteNo assessment information [facility] Work Phone: Evaluation note* Diagnosis Gas bloat syndrome- Primary Chronic idiopathic constipation Unspecified constipation Gastroparesis documented in this encounter [facility] note* Diagnosis Gastroesophageal reflux disease, unspecified whether esophagitis present documented in this encounter [facility] note* Diagnosis Gastroparesis- Primary documented in this encounter [facility] note* Diagnosis CHUCKIE (obstructive sleep apnea)- Primary Obstructive sleep apnea (adult) (pediatric) documented in this encounter [facility] note* Diagnosis Pre-op exam- Primary Preoperative examination, unspecified Primary hypertension Unspecified essential hypertension Mild persistent asthma without complication Unspecified asthma Gastroparesis CHUCKIE (obstructive sleep apnea) Obstructive sleep apnea (adult) (pediatric) documented in this encounter [facility] note* Diagnosis CHUCKIE (obstructive sleep apnea)- Primary Obstructive sleep apnea (adult) (pediatric) documented in this encounter [facility] note* Diagnosis Chronic idiopathic constipation- Primary Unspecified constipation Nausea Nausea alone documented in this encounter [facility] note* Diagnosis Gastroesophageal reflux disease with esophagitis without hemorrhage- Primary documented in this encounter [facility] note* Diagnosis Colonic inertia- Primary Other functional disorders of intestine Pelvic floor dysfunction Pelvic muscle wasting Nausea Nausea alone Gastroparesis documented in this encounter [facility] note* Diagnosis Pylorospasm- Primary Functional dyspepsia Dyspepsia and other specified disorders of function of stomach Gastroesophageal reflux disease with esophagitis without hemorrhage documented in this encounter [facility] note* Diagnosis Gastroesophageal reflux disease, unspecified whether esophagitis present documented in this encounter [facility] note* Diagnosis CHUCKIE (obstructive sleep apnea)- Primary Obstructive sleep apnea (adult) (pediatric) documented in this encounter [facility] note* Diagnosis Pylorospasm- Primary Functional dyspepsia Dyspepsia and other specified disorders of function of stomach Gastroesophageal reflux disease with esophagitis without hemorrhage documented in this encounter [facility] note* Diagnosis Gastroparesis- Primary documented in this encounter [facility] note* Diagnosis Preop examination- Primary Preoperative examination, unspecified Nausea Nausea alone CHUCKIE (obstructive sleep apnea) Obstructive sleep apnea (adult) (pediatric) Mild persistent asthma without complication Unspecified asthma Gastroesophageal reflux disease, unspecified whether esophagitis present Gastroparesis documented in this encounter [facility] note* Diagnosis 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 Personal history of other diseases of digestive system documented in this encounter [facility] note* Diagnosis Gastroesophageal reflux disease, unspecified whether esophagitis present documented in this encounter [facility] note* Diagnosis Incomplete bladder emptying- Primary Constipation, unspecified constipation type Urinary urgency Urgency of urination Urinary frequency Nocturia documented in this encounter [facility] note* Diagnosis Upper abdominal pain- Primary Abdominal pain, other specified site documented [facility]* Diagnosis Burning with urination- Primary Dysuria [facility]* Diagnosis Ashley vaginitis Candidiasis of vulva and vagina documented in this encounter [facility] general Narrative - Reported* Type Description Date [...] see above list Hospitalization History respiratory 02/2020 [employer] Other Hisnqxm general Narrative - [facility] [employer] Other [facility] general Narrative - Reported* Type Description Date [...] see above list Hospitalization History respiratory 02/2020 [facility] [employer] Other Reason for referral (narrative)* Outpatient Procedure (Routine) - Pending Review Specialty Diagnoses / Procedures Referred By Gustavo salazar Referred To Contact [facility] Diagnoses Gastroparesis Procedures CAPSULE ENDOSCOPY Isra Kitchen DO [facility] [address] [place] [address] [facility] [address] [place] [address] Referral ID Status Reason Start Date Expiration Date Visits Requested Visits Authorized [id number] Pending Review Auto-Generat ed Referral 10/11/2022 10/11/2023 1 1 [facility] (n[facility]ative[facility] Outpatient Procedure (Routine) - Pending Review Specialty Diagnoses / Procedures Referred By Contac t Referred To Contact [facility] Diagnoses Chronic idiopathic constipation Procedures SIGMOIDOSCOPY SIGMOIDOSCOPY FLX DX W/COLLJ SPEC BR/WA IF PFRMD Isra Masters DO [facility] [address] [place] [address] [facility] [address] [place] [address] Referral ID Status Reason Start Date Expiration Date Visits Requested Visits Authorized [id number] Pending Review Auto-Generat ed Referral 11/30/2022 11/30/2023 1 1 [facility] (narrative[facility] Outpatient Procedure (Routine) - Pending Review Specialty Diagnoses / Procedures Referred By Contac t Referred To Contact [facility] Diagnoses Gastroparesis Procedures EGD - THERAPEUTIC, EUS, OR TUBE INTERVENTIONS ESOPHAGOGASTRODUODENOSC OPY TRANSORAL DIAGNOSTIC STOMACH SURGERY PROCEDURE UNLISTED [place] [address] [facility] [address] [place] [address] Referral ID Status Reason Start Date Expiration Date Visits Requested Visits Authorized [id number] Pending Review Auto-Generat ed Referral 01/11/2023 01/12/2024 1 1 [facility] (n[facility]ative)* Outpatient Procedure (Routine) - Pending Review Specialty Diagnoses / Procedures Referred By Contac t Referred To Contact [facility] Diagnoses Incomplete bladder emptying Urinary urgency Urinary frequency Nocturia Procedures URODYNAMICS WHI COMPLX CYSTOMETRO W/VOID PRESS&URETHRAL PROFILE Nelsy Chávez, DANN.COAL WEIGHER [address] [place] [address] [facility] [address] [place] [address] Referral ID Status Reason Start Date Expiration Date Visits Requested Visits Authorized [id number] Pending Review Auto-Generat ed Referral 07/31/2023 07/30/2024 1 1 [facility]ative[facility] Consultation (Routine) - Open Specialty Diagnoses / Procedures Referred By Gustavo salazar Referred To Contact Family Medicine Diagnoses Upper abdominal pain Lev Ritter APRN COAL WEIGHER [address] [place] [address] [facility] [address] [place] [address] Referral ID Status Reason Start Date Expiration Date Visits Re quested Visits Authorized [id number] Open 08/12/2023 09/12/2024 1 1 [facility] SystemsReason for visit NarrativeDISCUSS OTHER OPTIONS PRIOR TO PROCEDURENohedrick medical center [employer] Other Regwgk for visit NarrativeRECHECK CERVICAL PAIN DISCUSS PROCEDURENort [employer] Other [employer] for visit Narrative* Outpatient Procedure (Routine) - Closed Specialty Diagnoses / Procedures Referred By Gustavo salazar Referred To Contact [facility] Diagnoses Gastroparesis Procedures GI TRANSIT & PRES RAVINDER WIRELESS CAPSULE W/INTERP Isra Masters DO [facility] [address] [place] [address] [facility] [address] [place] [address] Referral ID Status Reason Start Date Expiration Date Visits Re quested Visits Authorized [id number] Closed 11/08/2022 11/05/2023 1 1 [facility] Summary Purpose Family History No Family History [...] FoundDocuments on File Type Date Recorded 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 Expl anation Advance Directive(s) 10/13/2021 4:09 PM Advance Directive(s) 10/14/2020 8:14 AM Documents on File Type Date Recorded 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 Expl 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 Advance Directive(s) 10/13/2021 4:09 PM Advance Directive(s) 10/14/2020 8:14 AM Documents on File Type Date Recorded 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 Expl anation Advance Directive(s) 03/21/2022 1:42 PM Advance Directive(s) 10/13/2021 4:09 PM Advance Directive(s) 10/14/2020 8:14 AM Advance Directive Response Recorded Date/ Time Advance Directives No March 28 8 7:15am Advance Directive Response Recorded Date/ Time Advance Directives No March 28 8:15am Reason for Referral Specialty Diagnoses / Procedures Referred By Gustavo salazar Referred To Contact Diagnoses Gastroesophageal reflux disease, unspecified whether esophagitis present Isra Masters DO [facility] [address] [place] [id number] Referral ID Status Reason Start Date Expiration Date Visits Re quested Visits Authorized [id number] Closed 1 1 Referral ID Status Reason Start Date Expiration Date V isits Requested Visits Authorized [id number] Pending Review 1 1 Specialty Diagnoses / Procedures Referred By Gustavo salazar Referred To Contact CT IMAGING Diagnoses Periumbilical abdominal pain Procedures CT ABD/PEL W IVCON CT ABD & PELVIS W/[place] [address] [place] [place] [id number] Imaging Referral ID Status Reason Start Date Expiration Date Visits Requested Visits Authorized [id number] Pending Review Auto-Generat ed Referral 08/02/2022 08/25/2023 1 1 Reason BILATERAL SHOULDER P AIN Diagnosis 1 Shoulder pain (M25.5 19) Referral Organization [facility] Referring Provider First Name Annette Referring Provider Last Name Steven Referring Provider Specialty Pain Medici ne Referred Organization [facility] Referred Provider Annette Cartagena Referred Address [address] [place],[address] Referred Provider Specialty Orthopedic S urgery Referral Priority Routine Referral Appointment Date 2022-10-10 General Notes Kim Manley 10:01:46 AM >patient already scheduled with [facility] 10/10/22 at 1:30pm. Sending p2p at this time Referral ID Status Reason Start Date Expiration Date Visits Re quested Visits Authorized [id number] Closed 1 1 Chief Complaint and Reason [...] diaphoresis with recent work-up that [facility] emergency room. Reportedly her troponins are elevated [...] of which are currently being investigated at [facility] (now her fourth GI specialist). * Last year while in [place] she had similar issues with elevated troponins in the ED and underwent heart catheterization that did not reveal any specific significant disease, details of the discharge summary are reviewed * She underwent recent stress perfusion imaging at [facility], the report is reviewed, she hasno evidence [...] disease, will investigate the troponin rise at [facility] however I believe this is likely a non- RI troponin elevation, likely associated withunderlying inflammatory bowel disease. We will follow-up on a as needed basis unless further objective data come to light * Patient is a 53-year-old female who returns at the request of her primary care physician with episodic chest discomfort associated weakness, dizziness, diaphoresis with recent work-up that [facility] emergency room. Reportedly her troponins are elevated [...] of which are currently being investigated at [facility] (now her fourth GI specialist). * Last year while in [place] she had similar issues with elevated troponins in the ED and underwent heart catheterization that did not reveal any specific significant disease, details of the discharge summary are reviewed * She underwent recent stress perfusion imaging at [facility], the report is reviewed, she hasno evidence [...] disease, will investigate the troponin rise at [facility] however I believe this is likely a non- RI troponin elevation, likely associated withunderlying inflammatory bowel disease. We will follow-up on a as needed basis unless further objective data come to light Additional Source Comments INFORMATION SOURCE (unrecogn ized section and content) DATE CREATED AUTHOR 07/08/2021 [facility] DATE CREATED AUTHOR AUTHOR'S ORGANIZ ATION 11/18/2021 [facility] DATE CREATED AUTHOR AUTHOR'S ORGANIZ ATION 02/01/2022 [facility] DATE CREATED AUTHOR AUTHOR'S ORGANIZ ATION 04/05/2022 [facility] DATE CREATED AUTHOR AUTHOR'S ORGANIZ ATION 09/29/2022 [facility] Special[facility] DATE CREATED AUTHOR AUTHOR'S ORGANIZ ATION 12/09/2022 [facility] DATE CREATED AUTHOR AUTHOR'S ORGANIZ ATION 04/16/2023 [facility] DATE CREATED AUTHOR AUTHOR'S ORGANIZ ATION 06/14/2023 [facility] DATE CREATED AUTHOR AUTHOR'S ORGANIZ ATION 06/18/2023 [facility] DATE CREATED AUTHOR AUTHOR'S ORGANIZ ATION 08/14/2023 [facility] DATE CREATED AUTHOR AUTHOR'S ORGANIZ ATION 09/02/2023 [facility] DATE CREATED AUTHOR AUTHOR'S ORGANIZ ATION 10/12/2023 [facility] DATE CREATED AUTHOR AUTHOR'S ORGANIZ ATION 10/27/2023 [facility] DATE CREATED AUTHOR AUTHOR'S ORGANIZ ATION 10/27/[address] [facility] Specialists EPIC DATE CREATED AUTHOR AUTHOR'S ORGANIZ ATION 10/28/2023 [facility] Source Comments (unrecognize d section and content) In the event this informatio n is protected by the Federal Confidentiality of Alcohol and Drug Abuse Patient Records regulations: The Federal rules restrict any use of the information to criminally investigate or prosecute any alcohol or drug abuse patient.[facility] HospitalIn the event this information is protected by the Federal Confidentiality of Alcohol and Drug Abuse Patient Records regulations: The Federal rules restrict any use of the information to criminally investigate or prosecute any alcohol or drug abuse patient.[facility] HospitalIn the event this information is protected by the Federal Confidentiality of Alcohol and Drug Abuse Patient Records regulations: The Federal rules restrict any use of the information to criminally investigate or prosecute any alcohol or drug abuse patient.[facility] HospitalIn the event this information is protected by the Federal Confidentiality of Alcohol and Drug Abuse Patient Records regulations: The Federal rules restrict any use of the information to criminally investigate or prosecute any alcohol or drug abuse patient.[facility] HospitalIn the event this information is protected by the Federal Confidentiality of Alcohol and Drug Abuse Patient Records regulations: The Federal rules restrict any use of the information to criminally investigate or prosecute any alcohol or drug abuse patient.[facility] HospitalIn the event this information is protected by the Federal Confidentiality of Alcohol and Drug Abuse Patient Records regulations: The Federal rules restrict any use of the information to criminally investigate or prosecute any alcohol or drug abuse patient.[facility] HospitalIn the event this information is protected by the Federal Confidentiality of Alcohol and Drug Abuse Patient Records regulations: The Federal rules restrict any use of the information to criminally investigate or prosecute any alcohol or drug abuse patient.[facility] HospitalIn the event this information is protected by the Federal Confidentiality of Alcohol and Drug Abuse Patient Records regulations: The Federal rules restrict any use of the information to criminally investigate or prosecute any alcohol or drug abuse patient.[facility] HospitalIn the event this information is protected by the Federal Confidentiality of Alcohol and Drug Abuse Patient Records regulations: The Federal rules restrict any use of the information to criminally investigate or prosecute any alcohol or drug abuse patient.[facility] HospitalIn the event this information is protected by the Federal Confidentiality of Alcohol and Drug Abuse Patient Records regulations: The Federal rules restrict any use of the information to criminally investigate or prosecute any alcohol or drug abuse patient.[facility] HospitalIn the event this information is protected by the Federal Confidentiality of Alcohol and Drug Abuse Patient Records regulations: The Federal rules restrict any use of the information to criminally investigate or prosecute any alcohol or drug abuse patient.[facility] HospitalIn the event this information is protected by the Federal Confidentiality of Alcohol and Drug Abuse Patient Records regulations: The Federal rules restrict any use of the information to criminally investigate or prosecute any alcohol or drug abuse patient.[facility] HospitalIn the event this information is protected by the Federal Confidentiality of Alcohol and Drug Abuse Patient Records regulations: The Federal rules restrict any use of the information to criminally investigate or prosecute any alcohol or drug abuse patient.[facility] HospitalIn the event this information is protected by the Federal Confidentiality of Alcohol and Drug Abuse Patient Records regulations: The Federal rules restrict any use of the information to criminally investigate or prosecute any alcohol or drug abuse patient.[facility] HospitalIn the event this information is protected by the Federal Confidentiality of Alcohol and Drug Abuse Patient Records regulations: The Federal rules restrict any use of the information to criminally investigate or prosecute any alcohol or drug abuse patient.[facility] HospitalIn the event this information is protected by the Federal Confidentiality of Alcohol and Drug Abuse Patient Records regulations: The Federal rules restrict any use of the information to criminally investigate or prosecute any alcohol or drug abuse patient.[facility] HospitalIn the event this information is protected by the Federal Confidentiality of Alcohol and Drug Abuse Patient Records regulations: The Federal rules restrict any use of the information to criminally investigate or prosecute any alcohol or drug abuse patient.[facility] HospitalIn the event this information is protected by the Federal Confidentiality of Alcohol and Drug Abuse Patient Records regulations: The Federal rules restrict any use of the information to criminally investigate or prosecute any alcohol or drug abuse patient.[facility] the event this information is protected by the Federal Confidentiality of Alcohol and Drug Abuse Patient Records regulations: The Federal rules restrict any use of the information to criminally investigate or prosecute any alcohol or drug abuse patient.[facility] HospitalIn the event this information is protected by the Federal Confidentiality of Alcohol and Drug Abuse Patient Records regulations: The Federal rules restrict any use of the information to criminally investigate or prosecute any alcohol or drug abuse patient.[facility] HospitalIn the event this information is protected by the Federal Confidentiality of Alcohol and Drug Abuse Patient Records regulations: The Federal rules restrict any use of the information to criminally investigate or prosecute any alcohol or drug abuse patient.[facility] ClinicIn the event this information is protected by the Federal Confidentiality of Alcohol and Drug Abuse Patient Records regulations: The Federal rules restrict any use of the information to criminally investigate or prosecute any alcohol or drug abuse patient.[facility] HospitalIn the event this information is protected by the Federal Confidentiality of Alcohol and Drug Abuse Patient Records regulations: The Federal rules restrict any use of the information to criminally investigate or prosecute any alcohol or drug abuse patient.[facility] HospitalIn the event this information is protected by the Federal Confidentiality of Alcohol and Drug Abuse Patient Records regulations: The Federal rules restrict any use of the information to criminally investigate or prosecute any alcohol or drug abuse patient.[facility] HospitalIn the event this information is protected by the Federal Confidentiality of Alcohol and Drug Abuse Patient Records regulations: The Federal rules restrict any use of the information to criminally investigate or prosecute any alcohol or drug abuse patient.[facility] HospitalIn the event this information is protected by the Federal Confidentiality of Alcohol and Drug Abuse Patient Records regulations: The Federal rules restrict any use of the information to criminally investigate or prosecute any alcohol or drug abuse patient.[facility] HospitalIn the event this information is protected by the Federal Confidentiality of Alcohol and Drug Abuse Patient Records regulations: The Federal rules restrict any use of the information to criminally investigate or prosecute any alcohol or drug abuse patient.[facility] HospitalIn the event this information is protected by the Federal Confidentiality of Alcohol and Drug Abuse Patient Records regulations: The Federal rules restrict any use of the information to criminally investigate or prosecute any alcohol or drug abuse patient.[facility] HospitalIn the event this information is protected by the Federal Confidentiality of Alcohol and Drug Abuse Patient Records regulations: The Federal rules restrict any use of the information to criminally investigate or prosecute any alcohol or drug abuse patient.[facility] HospitalIn the event this information is protected by the Federal Confidentiality of Alcohol and Drug Abuse Patient Records regulations: The Federal rules restrict any use of the information to criminally investigate or prosecute any alcohol or drug abuse patient.[facility] HospitalIn the event this information is protected by the Federal Confidentiality of Alcohol and Drug Abuse Patient Records regulations: The Federal rules restrict any use of the information to criminally investigate or prosecute any alcohol or drug abuse patient.[facility] HospitalIn the event this information is protected by the Federal Confidentiality of Alcohol and Drug Abuse Patient Records regulations: The Federal rules restrict any use of the information to criminally investigate or prosecute any alcohol or drug abuse patient.[facility] HospitalIn the event this information is protected by the Federal Confidentiality of Alcohol and Drug Abuse Patient Records regulations: The Federal rules restrict any use of the information to criminally investigate or prosecute any alcohol or drug abuse patient.[facility] HospitalIn the event this information is protected by the Federal Confidentiality of Alcohol and Drug Abuse Patient Records regulations: The Federal rules restrict any use of the information to criminally investigate or prosecute any alcohol or drug abuse patient.[facility] HospitalIn the event this information is protected by the Federal Confidentiality of Alcohol and Drug Abuse Patient Records regulations: The Federal rules restrict any use of the information to criminally investigate or prosecute any alcohol or drug abuse patient.[facility] HospitalIn the event this information is protected by the Federal Confidentiality of Alcohol and Drug Abuse Patient Records regulations: The Federal rules restrict any use of the information to criminally investigate or prosecute any alcohol or drug abuse patient.[facility] HospitalIn the event this information is protected by the Federal Confidentiality of Alcohol and Drug Abuse Patient Records regulations: The Federal rules restrict any use of the information to criminally investigate or prosecute any alcohol or drug abuse patient.[facility] HospitalIn the event this information is protected by the Federal Confidentiality of Alcohol and Drug Abuse Patient Records regulations: The Federal rules restrict any use of the information to criminally investigate or prosecute any alcohol or drug abuse patient.[facility] HospitalIn the event this information is protected by the Federal Confidentiality of Alcohol and Drug Abuse Patient Records regulations: The Federal rules restrict any use of the information to criminally investigate or prosecute any alcohol or drug abuse patient.[facility] HospitalIn the event this information is protected by the Federal Confidentiality of Alcohol and Drug Abuse Patient Records regulations: The Federal rules restrict any use of the information to criminally investigate or prosecute any alcohol or drug abuse patient.[facility] HospitalIn the event this information is protected by the Federal Confidentiality of Alcohol and Drug Abuse Patient Records regulations: The Federal rules restrict any use of the information to criminally investigate or prosecute any alcohol or drug abuse patient.[facility] HospitalIn the event this information is protected by the Federal Confidentiality of Alcohol and Drug Abuse Patient Records regulations: The Federal rules restrict any use of the information to criminally investigate or prosecute any alcohol or drug abuse patient.[facility] HospitalIn the event this information is protected by the Federal Confidentiality of Alcohol and Drug Abuse Patient Records regulations: The Federal rules restrict any use of the information to criminally investigate or prosecute any alcohol or drug abuse patient.[facility] HospitalIn the event this information is protected by the Federal Confidentiality of Alcohol and Drug Abuse Patient Records regulations: The Federal rules restrict any use of the information to criminally investigate or prosecute any alcohol or drug abuse patient.[facility] HospitalIn the event this information is protected by the Federal Confidentiality of Alcohol and Drug Abuse Patient Records regulations: The Federal rules restrict any use of the information to criminally investigate or prosecute any alcohol or drug abuse patient.[facility] HospitalIn the event this information is protected by the Federal Confidentiality of Alcohol and Drug Abuse Patient Records regulations: The Federal rules restrict any use of the information to criminally investigate or prosecute any alcohol or drug abuse patient.[facility] HospitalIn the event this information is protected by the Federal Confidentiality of Alcohol and Drug Abuse Patient Records regulations: The Federal rules restrict any use of the information to criminally investigate or prosecute any alcohol or drug abuse patient.[facility] HospitalIn the event this information is protected by the Federal Confidentiality of Alcohol and Drug Abuse Patient Records regulations: The Federal rules restrict any use of the information to criminally investigate or prosecute any alcohol or drug abuse patient.[facility] HospitalIn the event this information is protected by the Federal Confidentiality of Alcohol and Drug Abuse Patient Records regulations: The Federal rules restrict any use of the information to criminally investigate or prosecute any alcohol or drug abuse patient.[facility] HospitalIn the event this information is protected by the Federal Confidentiality of Alcohol and Drug Abuse Patient Records regulations: The Federal rules restrict any use of the information to criminally investigate or prosecute any alcohol or drug abuse patient.[facility] HospitalIn the event this information is protected by the Federal Confidentiality of Alcohol and Drug Abuse Patient Records regulations: The Federal rules restrict any use of the information to criminally investigate or prosecute any alcohol or drug abuse patient.[facility] HospitalIn the event this information is protected by the Federal Confidentiality of Alcohol and Drug Abuse Patient Records regulations: The Federal rules restrict any use of the information to criminally investigate or prosecute any alcohol or drug abuse patient.[facility] HospitalIn the event this information is protected by the Federal Confidentiality of Alcohol and Drug Abuse Patient Records regulations: The Federal rules restrict any use of the information to criminally investigate or prosecute any alcohol or drug abuse patient.[facility] HospitalIn the event this information is protected by the Federal Confidentiality of Alcohol and Drug Abuse Patient Records regulations: The Federal rules restrict any use of the information to criminally investigate or prosecute any alcohol or drug abuse patient.[facility] HospitalIn the event this information is protected by the Federal Confidentiality of Alcohol and Drug Abuse Patient Records regulations: The Federal rules restrict any use of the information to criminally investigate or prosecute any alcohol or drug abuse patient.[facility] HospitalIn the event this information is protected by the Federal Confidentiality of Alcohol and Drug Abuse Patient Records regulations: The Federal rules restrict any use of the information to criminally investigate or prosecute any alcohol or drug abuse patient.[facility] HospitalIn the event this information is protected by the Federal Confidentiality of Alcohol and Drug Abuse Patient Records regulations: The Federal rules restrict any use of the information to criminally investigate or prosecute any alcohol or drug abuse patient.[facility] HospitalIn the event this information is protected by the Federal Confidentiality of Alcohol and Drug Abuse Patient Records regulations: The Federal rules restrict any use of the information to criminally investigate or prosecute any alcohol or drug abuse patient.[facility] HospitalIn the event this information is protected by the Federal Confidentiality of Alcohol and Drug Abuse Patient Records regulations: The Federal rules restrict any use of the information to criminally investigate or prosecute any alcohol or drug abuse patient.[facility] HospitalIn the event this information is protected by the Federal Confidentiality of Alcohol and Drug Abuse Patient Records regulations: The Federal rules restrict any use of the information to criminally investigate or prosecute any alcohol or drug abuse patient.[facility] HospitalIn the event this information is protected by the Federal Confidentiality of Alcohol and Drug Abuse Patient Records regulations: The Federal rules restrict any use of the information to criminally investigate or prosecute any alcohol or drug abuse patient.[facility] HospitalIn the event this information is protected by the Federal Confidentiality of Alcohol and Drug Abuse Patient Records regulations: The Federal rules restrict any use of the information to criminally investigate or prosecute any alcohol or drug abuse patient.[facility] HospitalIn the event this information is protected by the Federal Confidentiality of Alcohol and Drug Abuse Patient Records regulations: The Federal rules restrict any use of the information to criminally investigate or prosecute any alcohol or drug abuse patient.[facility] HospitalIn the event this information is protected by the Federal Confidentiality of Alcohol and Drug Abuse Patient Records regulations: The Federal rules restrict any use of the information to criminally investigate or prosecute any alcohol or drug abuse patient.[facility] HospitalIn the event this information is protected by the Federal Confidentiality of Alcohol and Drug Abuse Patient Records regulations: The Federal rules restrict any use of the information to criminally investigate or prosecute any alcohol or drug abuse patient.[facility] HospitalIn the event this information is protected by the Federal Confidentiality of Alcohol and Drug Abuse Patient Records regulations: The Federal rules restrict any use of the information to criminally investigate or prosecute any alcohol or drug abuse patient.[facility] HospitalIn the event this information is protected by the Federal Confidentiality of Alcohol and Drug Abuse Patient Records regulations: The Federal rules restrict any use of the information to criminally investigate or prosecute any alcohol or drug abuse patient.[facility] HospitalIn the event this information is protected by the Federal Confidentiality of Alcohol and Drug Abuse Patient Records regulations: The Federal rules restrict any use of the information to criminally investigate or prosecute any alcohol or drug abuse patient.[facility] the event this information is protected by the Federal Confidentiality of Alcohol and Drug Abuse Patient Records regulations: The Federal rules restrict any use of the information to criminally investigate or prosecute any alcohol or drug abuse patient.[facility] HospitalIn the event this information is protected by the Federal Confidentiality of Alcohol and Drug Abuse Patient Records regulations: The Federal rules restrict any use of the information to criminally investigate or prosecute any alcohol or drug abuse patient.[facility] HospitalIn the event this information is protected by the Federal Confidentiality of Alcohol and Drug Abuse Patient Records regulations: The Federal rules restrict any use of the information to criminally investigate or prosecute any alcohol or drug abuse patient.[facility]In the event this information is protected by the Federal Confidentiality of Alcohol and Drug Abuse Patient Records regulations: The Federal rules restrict any use of the information to criminally investigate or prosecute any alcohol or drug abuse patient.[facility] HospitalIn the event this information is protected by the Federal Confidentiality of Alcohol and Drug Abuse Patient Records regulations: The Federal rules restrict any use of the information to criminally investigate or prosecute any alcohol or drug abuse patient.[facility] HospitalIn the event this information is protected by the Federal Confidentiality of Alcohol and Drug Abuse Patient Records regulations: The Federal rules restrict any use of the information to criminally investigate or prosecute any alcohol or drug abuse patient.[facility] HospitalIn the event this information is protected by the Federal Confidentiality of Alcohol and Drug Abuse Patient Records regulations: The Federal rules restrict any use of the information to criminally investigate or prosecute any alcohol or drug abuse patient.[facility] HospitalIn the event this information is protected by the Federal Confidentiality of Alcohol and Drug Abuse Patient Records regulations: The Federal rules restrict any use of the information to criminally investigate or prosecute any alcohol or drug abuse patient.[facility] Reason for Visit (unrecogniz ed section and content) Reason Comments Physical Therapy Specialty Diagnoses / Procedures Referred By Gustavo salazar Referred To Contact [facility] Diagnoses Follow-up examination after colorectal surgery Procedures CONSULT TO PHYSICAL THERAPY PHYSICAL THERAPY EVALUATION HIGH COMPLEX [address] [place] [address] [place] [address] [facility] [address] [place] [address] Referral ID Status Reason Start Date Expiration Date Visits Requested Visits Authorized [id number] Authorized Auto-Generat ed Referral 01/04/2022 11/05/2022 30 30 Reason Comments Refill Request dexlansoprazole Reason Comments Established Patient Follow-Up Reason Comments Post Op Reason Comments Established Patient Reason Comments Appointment for script refill Reason Comments Gastroparesis 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 Medication 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 PA [...] HB6 Specialty Diagnoses / Procedures Referred By Gustavo salazar Referred To Contact XR IMAGING Diagnoses Gastroesophageal reflux disease, unspecified whether esophagitis present Procedures XR ESOPHAGRAM W DOUBLE CONTRAST RADIOLOGIC EXAM ESOPHAGUS DOUBLE CONTRAST [place]UD[place] [address] Xr Imaging Referral ID Status Reason Start Date Expiration Date V isits Requested Visits Authorized [id number] Closed Auto-Generate d Referral 11/17/2022 12/17/2023 1 [...] IVCON CT ABD & PEL[place] [address] [place] [address] Ct Imaging Referral ID Status Reason Start Date Expiration Date V isits Requested Visits Authorized [id number] Closed Auto-Generate d Referral 07/28/2022 11/05/2022 2 2 Reason Comments Urinary Retention Reason Comments Abdominal Pain Reason Comments Med Change Request Care Teams (unrecognized sec tion and content) Team Status: Active Member Role Status Dates Shannon Willams DO Primary Care Provider Active Team Status: Inactive Member Role Status Dates Shannon Willams DO Primary Care Provider Active Niecy Duron PA-C Attending Provider Active Vitamin Manager Relationship Specialty Start Date End Date Eliceo Willams Jr. [address] [place] [address] PCP - General Family Practice 10/14/20 Vitamin Manager Relationship Specialty Start Date End Date Eliceo Willams Jr. [address] [place] [address] PCP - General Family Practice 10/14/20 Vitamin Manager Relationship Specialty Start Date End Date Eliceo Willams Jr. [address] [place] [address] PCP - General Family Practice 10/14/20 Vitamin Manager Relationship Specialty Start Date End Date Eliceo Willams Jr. [address] [place] [address] PCP - General Family Practice 10/14/20 Vitamin Manager Relationship Specialty Start Date End Date Eliceo Willams Jr. [address] [place] [address] PCP - General Family Practice 10/14/20 Vitamin Manager Relationship Specialty Start Date End Date Eliceo Willams Jr. [address] [place] [address] PCP - General Family Practice 10/14/20 Gwendolyn Stroud [address] [place] [address] Family Practice 03/14/22 Vitamin Manager Relationship Specialty Start Date End Date Eliceo Willams Jr. [address] [place] [address] PCP - General Family Practice 10/14/20 Gwendolyn Stroud [address] [place] [address] Family Practice 03/14/22 Vitamin Manager Relationship Specialty Start Date End Date Eliceo Willams [address] [place], [place] [address] PCP - General Family Practice 10/14/20 Gwendolyn Stroud [address] [place] [address] Family Practice 03/14/22 Vitamin Manager Relationship Specialty Start Date End Date Eliceo Willams Jr. [address] [place] [address] PCP - General Family Practice 10/14/20 Gwendolyn Stroud [address] [place] [address] Family Practice 03/14/22 Vitamin Manager Relationship Specialty Start Date End Date Eliceo Willams Jr. [address] [place] [address] PCP - General Family Practice 10/14/20 Gwendolyn Stroud [address] [place] [address] Family Practice 03/14/22 Vitamin Manager Relationship Specialty Start Date End Date Eliceo Willams Jr. [address] [place] [address] PCP - General Family Practice 10/14/20 Gwendolyn Stroud [address] [place] [address] Family Practice 03/14/22 Vitamin Manager Relationship Specialty Start Date End Date Eliceo Willams Jr. [address] [place] [address] PCP - General Family Practice 10/14/20 Gwendolyn Stroud CNP Family Practice 03/14/22 Vitamin Manager Relationship Specialty Start Date End Date Eliceo Willams Jr. [address] [place] [address] PCP - General Family Practice 10/14/20 Gwendolyn Stroud CNP Family Practice 03/14/22 Vitamin Manager Relationship Specialty Start Date End Date Eliceo Willams Jr. [address] [place] [address] PCP - General Family Practice 10/14/20 Gwendolyn Stroud, COAL WE[employer]HER Family Practice 03/14/22 Vitamin Manager Relationship Specialty Start Date End Date Eliceo Willams Jr. [address] [place] [address] PCP - General Family Practice 10/14/20 Gwendolyn Stroud, COAL WEIGHER Family Practice 03/14/22 Vitamin Manager Relationship Specialty Start Date End Date Eliceo Willams Jr. [address] [place] [address] PCP - General Family Medicine 10/14/20 Gwendolyn Stroud, COAL WE[employer]HER Family Medicine 03/14/22 Vitamin Manager Relationship Specialty Start Date End Date Eliceo Willams Jr. [address] [place] [address] PCP - General Family Medicine 10/14/20 Gwendolyn Stroud, COAL WE[employer]HER Family Medicine 03/14/22 Vitamin Manager Relationship Specialty Start Date End Date Eliceo Willams Jr. [address] [place] [address] PCP - General Family Medicine 10/14/20 Gwendolyn Stroud, COAL WE[employer]HER Family Medicine 03/14/22 Vitamin Manager Relationship Specialty Start Date End Date Eliceo Willams Jr. [address] [place] [address] PCP - General Family Medicine 10/14/20 Gwendolyn Stroud CNP Family Medicine 03/14/22 Team Status: Inactive Member Role Status Dates Shannon Willams DO Primary Care Provider Active Annette Harris MD Attending Provider Active Vitamin Manager Relationship Specialty Start Date End Date Eliceo Willams Jr. [address] [place] [address] PCP - General Family Medicine 10/14/20 Gwendolyn Stroud CO[employer] WE[employer]HER [address] [place] [address] Family Medicine 03/14/22 Vitamin Manager Relationship Specialty Start Date End Date Eliceo Willams Jr. [address] [place] [address] PCP - General Family Medicine 10/14/20 Gwendolyn Stroud CNP [address] [place] [address] Family Medicine 03/14/22 Vitamin Manager Relationship Specialty Start Date End Date Eliceo Willams Jr. [address] [place] [address] PCP - General Family Medicine 10/14/20 Gwendolyn Stroud COAL WEIGHER [address] [place] [address] Family Medicine 03/14/22 Vitamin Manager Relationship Specialty Start Date End Date Eliceo Willams Jr. [address] [place] [address] PCP - General Family Medicine 10/14/20 Gwendolyn Stroud COAL WEIGHER [address] [place] [address] Family Medicine 03/14/22 Vitamin Manager Relationship Specialty Start Date End Date Eliceo Willams Jr. [address] [place] [address] PCP - General Family Medicine 10/14/20 Gwendolyn Stroud CNP [address] [place] [address] Family Medicine 03/14/22 Vitamin Manager Relationship Specialty Start Date End Date Eliceo Willams Jr. [address] [place] [address] PCP - General Family Medicine 10/14/20 Gwendolyn Stroud CNP [address] [place] [address] Family Medicine 03/14/22 Vitamin Manager Relationship Specialty Start Date End Date Eliceo Willams Jr. [address] [place] [address] PCP - General Family Medicine 10/14/20 Gwendolyn Stroud CNP [address] [place] [address] Family Medicine 03/14/22 Vitamin Manager Relationship Specialty Start Date End Date Eliceo Willams Jr. [address] [place] [address] PCP - General Family Medicine 10/14/20 Gwendolyn Stroud CNP [address] [place] [address] Family Medicine 03/14/22 Vitamin Manager Relationship Specialty Start Date End Date Eliceo Willams Jr. [address] [place] [address] PCP - General Family Medicine 10/14/20 Gwendolyn Stroud CNP [address] [place] [address] Family Medicine 03/14/22 Vitamin Manager Relationship Specialty Start Date End Date Eliceo Willams Jr. [address] [place] [address] PCP - General Family Medicine 10/14/20 Gwendolyn Stroud CNP [address] [place] [address] Family Medicine 03/14/22 Vitamin Manager Relationship Specialty Start Date End Date Dalia Eliceo Lugo Jr. [address] [place] [address] PCP - General Family Medicine 10/14/20 Gwendolyn Stroud CNP [address] [place] [address] Family Medicine 03/14/22 Team Status: Inactive Member Role Status Henrietta Willams , Primary Care Provider Active Annette Cartagena MD Attending Provider Active Vitamin Manager Relationship Specialty Start Date End Date Eliceo Willams Jr. [address] [place] [address] PCP - General Family Medicine 10/14/20 Gwendolyn Stroud, KWESI [address] [place] [address] Family Medicine 03/14/22 Vitamin Manager Relationship Specialty Start Date End Date Eliceo Willams Jr. [address] [place] [address] PCP - General Family Medicine 10/14/20 Gwendolyn Stroud CNP [address] [place] [address] Family Medicine 03/14/22 Vitamin Manager Relationship Specialty Start Date End Date Eliceo Willams Jr. [address] [place] [address] PCP - General Family Medicine 10/14/20 Gwendolyn Stroud CNP [address] [place] [address] Family Medicine 03/14/22 Vitamin Manager Relationship Specialty Start Date End Date Eliceo Willams Jr. [address] [place] [address] PCP - General Family Medicine 10/14/20 Gwendolyn Stroud COAL WEIGHER [address] [place] [address] Family Medicine 03/14/22 Vitamin Manager Relationship Specialty Start Date End Date Eliceo Willams Jr. [address] [place] [address] PCP - General Family Medicine 10/14/20 Gwendolyn Stroud CNP [address] [place] [address] Family Medicine 03/14/22 Vitamin Manager Relationship Specialty Start Date End Date Eliceo Willams Jr. [address] [place] [address] PCP - General Family Medicine 10/14/20 Gwendolyn Stroud, COAL WEIGHER [address] [place] [address] Family Medicine 03/14/22 Vitamin Manager Relationship Specialty Start Date End Date Eliceo Willams Parish [address] [place] [address] PCP - General Family Medicine 10/14/20 Gwendolyn Stroud CNP [address] [place] [address] Family Medicine 03/14/22 Vitamin Manager Relationship Specialty Start Date End Date Eliceo Willams Jr. [address] [place] [address] PCP - General Family Medicine 10/14/20 Gwendolyn Stroud CNP [address] [place] [address] Family Medicine 03/14/22 Team Status: Inactive Member Role Status Dates Shannon Willams , DO Primary Care Provider Active Anibal Valle , DO Emergency Provider Active Vitamin Manager Relationship Specialty Start Date End Date StephonEliceo vilchis Jr. [address] [place] [address] PCP - General Family Medicine 10/14/20 Gwendolyn Stroud CNP [address] [place] [address] Family Medicine 03/14/22 Vitamin Manager Relationship Specialty Start Date End Date Eliceo Willams Jr. [address] [place] [address] PCP - General Family Medicine 10/14/20 Gwendolyn Stroud CNP [address] [place] [address] [facility] 03/14/22 Vitamin Manager Relationship Specialty Start Date End Date Stephonjerometomasa Eliceo Parish Jenkins. [address] [place] [address] PCP - General Family Medicine 10/14/20 Gwendolyn Stroud CNP [address] [place] [address] [facility] 03/14/22 Vitamin Manager Relationship Specialty Start Date End Date DaliaEliceo Jr., DO [address] [place] [address] PCP - General [facility] 10/14/20 Gwendolyn Stroud CNP [address] [place] [address] [facility] 03/14/22 Vitamin Manager Relationship Specialty Start Date End Date DaliaEliceo Jr., DO [address] [place] [address] PCP - [facility] Medicine 10/14/20 Gwendolyn Stroud, KWESI [address] [place] [address] [facility] 03/14/22 Goals (unrecognized section and content) Goals [...] at [id number] (Given - Provid er: Jaern Hare RN) hyoscyamine (LEVSIN) 0.125 MG/5ML elixir [...] BE BASED ON THE PRIMARY CLINICAL RECORDS. [facility] provides no warranty or guarantee of the accuracy or completeness of information in this document.
--- NOTE | 2023-10-29 07:02 | PC.NURSE ---
Had her tooth worked on and now pain has increased
--- NOTE | 2023-10-29 07:14 | ED_ITS ---
HPI - Dental/Oral General Chief complaint: Dental/Oral Stated complaint: DENTAL Time Seen by Provider: 10/29/23 07:00 Source: patient Mode of arrival: walk-in Limitations: no limitations History of Present Illness HPI Narrative: 53-year-old female presents for toothache. She's complaining of pain to her right upper dentition where she had a tooth extracted. It was extracted five days ago. Three days ago the pain started. She's been on amoxicillin. It's throbbing and severe and continuous. Related Data Home Medications Medication Instructions Recorded Confirmed albuterol sulfate 90 mcg/actuation 2 puff inhalation Q4H PRN 05/04/23 10/29/23 aerosol inhaler (Ventolin HFA) shortness of breath or wheezing atenolol 25 mg tablet 25 mg PO Q24H 05/04/23 10/29/23 dexlansoprazole 60 mg 60 mg PO QAM 05/04/23 07/28/23 capsule,biphase delayed release dexpanthenol-choline bitart 50 1 tab PO QAM 05/04/23 05/18/23 mg-25 mg tablet eszopiclone 3 mg tablet (Lunesta) 3 mg PO QPM 05/04/23 07/28/23 fremanezumab-vfrm 225 mg/1.5 mL 125 mg subcut .[id number] 05/04/23 10/29/23 subcutaneous auto-injector (Ajovy) ropinirole 1 mg tablet 1 mg PO QAM 05/04/23 10/29/23 ropinirole 2 mg tablet 2 mg PO QPM 05/04/23 10/29/23 trazodone 50 mg tablet 200 mg PO QPM 05/04/23 07/28/23 aripiprazole 9.75 mg/1.3 mL 100 mg IM .monthly 10/29/23 10/29/23 intramuscular solution clonidine 0.1 mg/24 hr weekly 1 patch topical .weekly 10/29/23 10/29/23 transdermal patch daridorexant 25 mg tablet (Quviviq) mg PO 10/29/23 Previous Rx's Medication Instructions Recorded hydrocodone 5 mg-acetaminophen 325 1 tab PO Q6H PRN pain 5 days #20 10/29/23 mg tablet tabs Allergies Allergy/AdvReac Type Severity Reaction Status Date / Time risperidone [From Risperdal] AdvReac Mild breast Verified 10/29/23 06:46 nipples leak Review of Systems ROS Narrative A ten point review of systems is negative except as noted above. PFSH PFSH Medical History (Updated 10/29/23 @ 07:11 by Elias García MD) Cellulitis ?L03.90 - Cellulitis, unspecified (ICD-10) Post op infection ?T81.40XA - Infection following a procedure, unspecified, initial encounter (ICD-10) Restless leg syndrome ?G25.81 - Restless legs syndrome (ICD-10) Tibialis anterior tendon tear, traumatic ?S86.219A - Strain of muscle(s) and tendon(s) of anterior muscle group at lower leg level, unspecified leg, initial encounter (ICD-10) Osteoarthritis ?M19.90 - Unspecified osteoarthritis, unspecified site (ICD-10) Back pain ?M54.9 - Dorsalgia, unspecified (ICD-10) Sleep disorder ?G47.9 - Sleep disorder, unspecified (ICD-10) PTSD (post-traumatic stress disorder) ?F43.10 - Post-traumatic stress disorder, unspecified (ICD-10) Depression ?F32.A - Depression, unspecified (ICD-10) Anxiety ?F41.9 - Anxiety disorder, unspecified (ICD-10) Sleep apnea ?G47.30 - Sleep apnea, unspecified (ICD-10) Asthma ?J45.909 - Unspecified asthma, uncomplicated (ICD-10) Constipation ?K59.00 - Constipation, unspecified (ICD-10) High cholesterol ?E78.00 - Pure hypercholesterolemia, unspecified (ICD-10) Hypertension ?I10 - Essential (primary) hypertension (ICD-10) Female rectocele with enterocele ?N81.6 - Rectocele (ICD-10) ?K46.9 - Unspecified abdominal hernia without obstruction or gangrene (ICD- 10) 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 - Other specified functional intestinal disorders (ICD-10) Surgical History (Updated 05/04/23 @ 08:39 by Leonarda Ruiz) History of appendectomy (1987) ?Z90.49 - Acquired absence of other specified parts of digestive tract (ICD- 10) History of colonoscopy ?Z98.890 - Other specified postprocedural states (ICD-10) History of colectomy (03/2022) ?Z90.49 - Acquired absence of other specified parts of digestive tract (ICD- 10) History of tonsillectomy and adenoidectomy ?Z90.89 - Acquired absence of other organs (ICD-10) History of hysterectomy (2014) ?Z90.710 - Acquired absence of both cervix and uterus (ICD-10) History of arthroplasty of right ankle ?Z98.890 - Other specified postprocedural states (ICD-10) History of repair of rotator cuff ?Z98.890 - Other specified postprocedural states (ICD-10) S/P ankle ligament repair (2020) ?Z98.890 - Other specified postprocedural states (ICD-10) Family History (Updated 05/18/23 @ 02:39 by Olivia Salazar) Other Family history of Alzheimer's disease Family history of coronary artery disease Family history of heart disease Family history of hypertension Social History (Updated 05/18/23 @ 02:40 by Olivia Salazar) Within the past year, how often did you have a drink containing alcohol: never Score interpretation: A score less than 3 is consistent with normal alcohol consumption. Smoking status: Never smoker Non-prescribed substance use: denies use Previous occupational history: unemployed Highest level of school completed/degree received: some college, no degree Little interest or pleasure in doing things: not at all Feeling down, depressed, or hopeless: not at all Feel stressed/tense/nervous/anxious/difficulty sleeping: only a little Due to disability, difficulty making decisions: No Do you think of yourself as: straight/heterosexual Gender Identity: female Exam Narrative Exam Narrative: Nurses note and vital signs reviewed and patient is not hypoxic. General: The patient appears well and in no apparent distress. Patient is resting comfortably on cart. Skin: Warm, dry, no pallor noted. There is no rash noted. Head: Normocephalic, atraumatic Eye: Normal conjunctiva, no drainage Ears, Nose, Mouth, and Throat: oral mucosa is moist. Nares patent. no facial swelling or erythema. Extraction site in the right upper dentition appears to be healing well. No bleeding or pus present. Cardiovascular: Regular Rate and Rhythm Respiratory: Patient is in no distress, no accessory muscle use, lungs are clear to auscultation, no wheezing, rales or rhonchi Back: non-tender GI: soft and nontender Musculoskeletal: The patient has no evidence of calf tenderness, no pitting edema, symmetrical pulses noted bilaterally Neurological: A&O, normal speech Psychiatric: Cooperative Constitutional Vital Signs, click to edit/add: Last Vital Signs Temp 96.2 F L 10/29/23 06:42 Pulse 59 L 10/29/23 06:42 Resp 16 10/29/23 06:42 BP 154/95 H 10/29/23 06:42 Pulse Ox 100 10/29/23 06:42 O2 Del Method Room Air 10/29/23 06:42 Course Vital Signs Vital signs: Vital Signs Temperature 96.2 F L 10/29/23 06:42 Pulse Rate 59 L 10/29/23 06:42 Respiratory Rate 16 10/29/23 06:42 Blood Pressure 154/95 H 10/29/23 06:42 Pulse Oximetry 100 10/29/23 06:42 Oxygen Delivery Method Room Air 10/29/23 06:42 Temperature 96.2 F L 10/29/23 06:42 Pulse Rate 59 L 10/29/23 06:42 Respiratory Rate 16 10/29/23 06:42 Blood Pressure 154/95 H 10/29/23 06:42 Pulse Oximetry 100 10/29/23 06:42 Oxygen Delivery Method Room Air 10/29/23 06:42 MDM - Dental/Oral MDM Narrative Medical decision making narrative: she'll continue the antibiotic that she was prescribed by her dentist and she was prescribed Bantam and given one here. Treatment diagnosis and follow-up were discussed with the patient. Differential Diagnosis Differential diagnosis: Likely gingival abscess, dental caries, toothache, dental abscess and other (post extraction pain) Discharge Plan Discharge Chief Complaint: Dental/Oral Clinical Impression: Toothache Patient Disposition: Home, Self-Care Time of Disposition Decision: 07:11 Condition: Good Mode of Transportation: Private Vehicle Prescriptions / Home Meds: New hydrocodone-acetaminophen 5-325 mg tablet 1 tab PO Q6H PRN (Reason: pain) 5 Days Qty: 20 0RF No Action Quviviq 25 mg tablet PO clonidine 0.1 mg/24 hr patch weekly 1 patch topical .weekly aripiprazole 9.75 mg/1.3 mL solution 100 mg IM .monthly albuterol sulfate [Ventolin HFA] 90 mcg/actuation HFA aerosol inhaler 2 puff INHALATION Q4H PRN (Reason: shortness of breath or wheezing) atenolol 25 mg tablet 25 mg PO Q24H dexlansoprazole 60 mg capsule,biphase delayed releas 60 mg PO QAM ropinirole 1 mg tablet 1 mg PO QAM ropinirole 2 mg tablet 2 mg PO QPM trazodone 50 mg tablet 200 mg PO QPM Ajovy Autoinjector 225 mg/1.5 mL auto-injector 125 mg subcut .[id number] Patient Comments: on the 1st of every month eszopiclone [Lunesta] 3 mg tablet 3 mg PO QPM dexpanthenol-choline bitart 50-25 mg tablet 1 tab PO QAM Rx Instructions: PER PT RETAIL FILL HX - 04/13/23 (30 DAY SUPPLY) DEXPANTHENOL (BULK) 100% LIQUID - NO DIRECTIONS AVAILABLE ON RETAIL HX Instructions: Toothache (ED) Stand Alone Forms: Portal Instructions Referrals: Isatu CASTRO [Primary Care Provider] - 1 week
[2023-10-29] MEDS: HYDROCODONE/ACET 5-325 MG TABLET 1 TAB PO (07:15)
[2023-10-29 07:21] VITALS: BP 131/98; PULSE 88; RESP 18; O2SAT 99
== END 2023-10-29 07:24 | disposition home or self-care (01) ==
PROVIDERS: Emergency Provider Emergency Medicine; PCP Family Medicine
DX: K08.89 Other specified disorders of teeth and supporting structures (principal); Z79.899 Other long term (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; G25.81 Restless legs syndrome; M19.90 Unspecified osteoarthritis, unspecified site; F43.10 Post-traumatic stress disorder, unspecified; G47.30 Sleep apnea, unspecified; J45.909 Unspecified asthma, uncomplicated; I10 Essential (primary) hypertension; E78.00 Pure hypercholesterolemia, unspecified; Z90.49 Acquired absence of other specified parts of digestive tract; Z98.890 Other specified postprocedural states; Z90.710 Acquired absence of both cervix and uterus
CPT/HCPCS: 99283

== ENCOUNTER 2023-11-03 07:50 | Outpatient (OUT) | payer OTHER, SELFPAY ==
--- OUTSIDE RECORDS SUMMARY | 2023-11-03 08:10 | XMS_ITS | CCD ---
Author Name Unknown Address [address] [place] [address] Organization [facility] Care Team Providers Care Cafeteria Cashier Name Role Phone PARISH WILLAMS Primary Care Unavailable Eliceo Willams Jr. Primary Care Provider Yaniv Stroudcie Unavailable Maximus OROSCO, Gwendolyn Unavailable Annette Harris Unavailable Tita Daugherty Unavailable Erica Kingston Unavailable Eliceo Willams Unavailable Unavailable Unavailable Allison Arita Unavailable Eliceo Willams Jr. Primary Care Provider Maxiums OROSCO, Gwendolyn Unavailable [phone] Eliceo Willams Unavailable DO Shannon Willams Primary Care Provider [phone] MD Annette Harris Attending Provider Eliceo Willams Jr. Primary Care Provider Maximus OROSCO, Gwendolyn Unavailable Annette Cartagena Unavailable MD Annette Cartagena Attending Provider WINSTON HANNAH Attending Unavailable WINSTON HANNAH Referring Unavailable ELICEO WILLAMS JR Primary Care Unavail able ISRA MASTERS Attending Unavailable ISRA MASTERS Referring Unavailable ELICEO WILLAMS JR Primary Care Unavail able DO Shannon Willams Primary Care Provider LORRAINE Duron Attending Provider JEM ., DR [...] WILDE Attending Unavailable SADE WILDE Admitting Unavailable KALEIGHA, DR Isatu LUGO Primary Care Unavailable DALIA, DR Isatu LUGO Primary Care Unavailable PAY ., DR MCDONALD Attending Unavailable PAY ., DR MCDONALD Admitting Unavailable PAY ., DR MCDONALD Consulting Unavailable NIECY DURON Attending Unavailable NIECY DURON Admitting Unavailable DLAIA, DR Isatu LUGO Primary Care Unavailable ZICLARISAER, DR ZAIDA Ellis Consulting Unavailable NIECY DURON Unavailable DO Anibal Valle Emergency Provider [phone] Unavailable Unavailable Annette Harris Attending Unavailable Shannon [...] arben Willams Jr., Eliceo LOAIZA Primary Care [facility] WINSTON HANNAH Referring Unavailable ELICEO WILLAMS JR Primary Care Unavail able KAJEROMEAN , ELICEO LUGO Primary Care Unavail able ENLSY CHÁVEZ Attending Unavailable KAJEROMEAN , ELICEO LUGO Primary Care Unavail able PAM WANG Attending Unavailable STEPHONJEROMEAN , ELICEO LUGO Primary Care Unavail able PAM WANG Referring Unavailable JAIRON LAI Attending Unavailable ELICEO WILLAMS JR Primary Care Unavail able YONI TUTTLE Attending Unavailable WENDYAN , ELICEO LUGO Primary Care Unavail able DORIS ARIAS Attending Unavailable WENDYAN , ELICEO LUGO Primary Care Unavail able PAM WANG Attending Unavailable PAM WANG Referring Unavailable WENDYAN ELICEO JENKINS Primary Care Unavail able KAJEROMEAN , ELICEO LUGO Primary Care Unavail able MASTERSISRA Rios S Attending Unavailable STEPHONLEIGHA JENKINS, ELICEO LUGO Primary Care Unavail able MARY OBRIEN Attending Unavailable MARY OBRIEN Referring Unavailable WINSTON HANNHA Attending Unavailable DALIA JENKINS, ELICEO LUGO Primary Care Unavail able WINSTON HANNAH Referring Unavailable ELICEO WILLAMS JR Primary Care Unavail able STEPHONJEROMEAN , ELICEO LUGO Primary Care Unavail able MASTERSISRA Rios Attending Unavailable DALIA JENKINSELICEO Referring Unavail able MASTERSISRA Referring Unavailable WENDYAN , ELICEO LUGO Primary Care Unavail able WINSTON HANNAH Attending Unavailable WENDYAN ELICEO Primary Care Unavail able MASTERSISRA Rios S Referring Unavailable WINSTON HANNAH Referring Unavailable WENDYAN , ELICEO LUGO Primary Care Unavail able WINSTON HANNAH Attending Unavailable STEPHONLEIGHA JENKINS, ELICEO LUGO Primary Care Unavail able PAULINE CHRISTENSEN Attending Unavailable DALIA JENKINS ELICEO Ellis Referring Unavailable DALIA JENKINSELICEO Primary Care Unavailable GIANA MORALES Attending Unavailable CARMEN DORSEY Attending Unavailable CARMEN DORSEY Attending Unavailable ANNETTE SWANSON Attending Unavailable KAILA, CARMEN Attending Unavailable TIMOTEO SIOMARA Referring Unavailable MATTEO QUINONES Attending Unavailable KAILA, CARMEN Attending Unavailable KAILA, CARMEN Attending Unavailable KAILA, CARMEN Attending Unavailable KAILA, CARMEN Attending Unavailable KAILA, CARMEN Attending Unavailable KAILA, CARMEN Attending Unavailable RADHA CASTREJON Attending Unavailable RADHA CASTREJON Attending Unavailable KAILA, CARMEN Attending Unavailable ANNETTE SWANSON Attending Unavailable GIANA MORALES Attending Unavailable KAILA, CARMEN Attending Unavailable ENIX, DEB Referring Unavailable LAY, SIOMARA Attending Unavailable ANNETTE SWANSON Attending Unavailable CARMEN DORSEY Attending Unavailable GIANA MORALES Attending Unavailable GIANA MORALES Attending Unavailable CARMEN DORSEY Attending Unavailable CARMEN DORSEY Attending Unavailable ANNETTE SWANSON Attending Unavailable GIANA MORALES Attending Unavailable ELICEO WILLAMS Attending Unavailable ELICEO WILLAMS Attending Unavailable ELICEO WILLAMS Referring Unavailable EAGLE LEE Attending Unavailable ELICEO WILLAMS Referring Unavailable RON KING Attending Unavailable ELICEO WILLAMS Referring Unavailable EAGLE LEE Referring Unavailable RON KING Referring Unavailable Allergies Allergy Classification Reported Allergen(s) Allergy Type Date of Onset Reaction(s) Facility (20 sources) risperiDONE; Translations: [RisperDAL TABS] Drug Allergy 0 Intolerance [facility] (1 source) oxyCODONE Drug Allergy [facility] Repository (1 source) risperiDONE Drug Allergy [facility] Repository (1 source) risperiDONE Drug Allergy 3 [facility] Repository (3 sources) POISON LAITH EXTRACT; Translations: [POISON LAITH EXTRACT] Drug Allergy 3 Rash [facility] (1 source) POISON LAITH; Translations: [POISON LAITH] Propensity to adverse reactions to drug (disorder) 2 [facility] Repository Medications Current Medications Medication Drug [...] 1 tablet by mouth every twelve hours [id number] 200 actuat albuterol 0.09 mg/actuat metered dose [...] on above: inhale 2 puffs by mo [facility] INTO THE LUNGS every [...] 1 puff(s) by in halation once daily hjcsjijavyi-mhzlvoxvw-ppkfecia (TRELEGY ELLIPTA) 100-62.5-25 mcg Inhale 1 Puff as instructed once daily. 0 Active take 1 puff(s) by in halation once daily Trelegy Ellipta 100-62.5-25 MCG/INH 1 pu ff Inhalation Once a day Not-Taking Comment on above: Inhale 1 Puff as ins tructed once daily. inulin 200 mg / lactobacillus rhamnosus gg [id number] unt oral capsule (1 source) Start: End: take 1 capsule by mouth once daily lactobacillus rhamnosus (CULTURELLE) 10 billion cell -200 mg capsule Take 1 capsule by mouth once daily. 30 capsule 0 06/07/2022 07/07/2022 Active Comment on above: Take 1 capsule by [facility] once daily. iv contrast (will be provided [...] mouth twice daily. [facility] traMADol hydrochloride 50 mg oral [...] Start: 03-04-2022 take 4 tablets by mo [facility] once daily at bedtime traZODone (DESYREL) 50 mg tablet Take 200 mg by mouth daily at bedtime. 0 03/04/2022 Active Start: 03-04-2022 take 3 tablets by mo [facility] once daily at bedtime traZODone (DESYREL) 50 mg tablet Take 150 mg by mouth daily at bedtime. 0 03/04/2022 Active Start: 11-02-2018 End: 12-19-2018 Trazodone Discontinued TABLE T November 02, 2018 1:00am December 19, 2018 1:17pm Start: 11-02-2018 End: 12-19-2018 Trazodone Discontinued TABLE T November 02, 2018 1:00am December 19, 2018 1:17pm take 2 tablets by [facility] at bedtime traZODone HCl - 100 MG Oral Tablet TAKE 2 TABLETS AT BEDTIME. Quantity: 0 Refills: 0 Ordered: 13-Jun-2023 DO Active take 1 tablet by [facility] at bedtime traZODone HCl - 150 [...] Comment on above: Take 2 tablets by [facility] every 6 hours as needed for pain. [...] (4 sources) Nonsteroidal Anti-inflammatory Drug Start: 06-18-20 End: 02-18-20 20 take 1 tablet by [...] 0 Active take 1 tablet by yancy th twice daily as needed Cyclobenzaprine HCl 10 [...] breakfast docusate sodium 50 mg / sennosides, mcc 8.6 mg oral tablet (4 sources) Start: [...] Fluticasone Propionate (Flonase Allergy Relief) 50 mcg/actuation Dougherty,Suspension Discontinued 2 SPRAY INTRANASAL Daily October 15, 2018 1:00am June 18, 2019 3:04pm Comment on above: Use 1 Dougherty in each nostril once daily. Fluticasone Propion-Salmeterol [...] as needed for pain. lactobacillus rhamnosus gg [id number] unt oral capsule (20 sources) Start: 06-09-2022 [...] on above: Take 2 tablets by mo [facility] as directed. Take 2 tablet at [...] Comment on above: Take 1 capsule by [facility] twice daily. nystatin [id number] unt/ml topical cream (20 sources) Polyene Antifungal [...] capsule (17 sources) Proton Pump Inhibitor Start: End: take 40 mg by mouth twice [...] June 05, 2023 10:13am polyethylene glycol 3350 13417 mg powder for oral solution (3 sources) [...] Comment on above: take 1 tablet by yancy once daily psyllium 520 mg oral capsule (3 sources) Start: 12-27-2021 End: 02-08-2022 psyllium Husk (METAMUCIL) 0.52 gram capsule Take 1 capsule by mouth as directed. As needed for constipation 0 12/27/2021 02/08/2022 Discontinued (Course of therapy completed) Comment on above: Take 1 capsule by mo [facility] as directed. As needed for constipation [...] on above: Take 2 tablets by mo [facility] three times daily as needed. 50 [...] Comment on above: Take 1,000 mcg by [facility] once daily. vortioxetine 10 mg oral tablet [...] 11-03-20 Chronic Other aftercare (1 source) Other long-term (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; Translations: [OTH RESIDENTIAL CURRENT DRUG THERAPY] Onset: 03-08-20 Episodic Other [...] COVID-19; Translations: [PERSONAL HISTORY OF COVID-19] Onset: 05-03-20 23 Unclassified (3 sources) LOW BACK PAIN, UNSPECIFIED; Translations: [LOW BACK PAIN, UNSPECIFIED] Onset: 02-22-20 23 Unclassified (1 source) CONTACT W/AND (SUSP) EXPOS COVID-19; Translations: [CONTACT W/AND (SUSP) EXPOS COVID-19] Onset: 10-23-20 22 Unclassified (1 source) Posterior tibial tendinitis, right leg; Translations: [Posterior tibial tendinitis, right leg] Onset: 03-17-20 23 Unclassified (1 source) Pain in right shoulder; Translations: [Pain in right shoulder] Onset: 10-14-20 22 Unclassified (2 sources) Telehealth Audio/video Visit; Translations: [...] DO Normal Not Available Documentationon 10-12-2023 Documentation [id number] Darrian Leal 1970 F Date Provider Department Center 10/12/2023 aKrli-GIANA MORALES [facility] PSYCH Gerardo Heal No family history on file Normal [facility] CNOVon 10-10-2023 CNOV Office Visit (SHERON ) ----- MARY LEAL ([id number]) 1970 F Date Time Provider Department 10/10/23 [...] PFSH obtained by others. Pam Wang MD Material Manager offered: Patient declines. OBJECTIVE: BP 102/60 General: [...] would like to move forward with PNE. Earnest packet given to patient today to review. [...] which included preparing to see the patient, dhci-fo-mixe patient care, completing clinical (more content not included)... Normal [facility] XR CHEST 2 VIEWSon 3 XR CHEST 2 VIEWS FINDINGS: Comparison, June 09, 2021. Intervertebral disc space device again identified lower cervical spine. Cardiopericardial silhouette normal. Pulmonary vasculature normal. Lungs clear. IMPRESSION: Impression: No acute cardiopulmonary disease. ELECTRONICALLY SIGNED BY: Rigo Strauss MD Normal Not Available Orders Onlyon 09-19-2023 Orders Only [id number] Darrian Leal 1970 F Date Provider Department Center 09/19/2023 GIANA JAMES [facility] PS[facility]CH Gerardo Heal No family history on file Normal [facility] CNPNon 09-12-2023 CNPN Telephone (WHQ) ----- MARY LEAL ([id number]) 1970 F Date Time Provider Department 09/12/23 PAM WANG WHQ During your visit today, we recorded the [...] which included preparing to see the patient, usfx-hm-dnml patient care, completing clinical documentation, obtaining and/or [...] Office will call to schedule cystoscopy. Urogynecology [facility] Main provided: Pam Wang Staff Physician, [...] Diagnosis:History of suburethral sling procedure [Z98.890] Order(s):CYSTOSCOPY [facility] [[id number]] Order #: [id number] Prescriptions as of 09/12/2023 - atenolol (TENORMIN) [...] Take 1,000 (more content not included)... Normal [facility] CNOVon 09-11-2023 CNOV Office Visit (UROSMN ) ----- MARY LEAL ([id number]) 1970 F Date Time Provider Department 09/11/23 [...] Jenifer Barry RN 09/11/2023 11:37 AM Signed [facility] URODYNAMICS LAB URODYNAMIC [...] allergy: No Females- Is patient : No Material Manager offered:Patient declines B/O UA: YES DIP: UROFLOWMETRY [...] Jairon Lai MD 09/11/2023 1:18 PM Signed [facility] C[facility] FOR FEMALE [...] Jairon Lai MD Referring Provider: PAM WANG [[id number]] Allergies As of Date: 09/11/2023 Noted Allergy Reaction RISPERIDONE 07/27/2021 5 - Intolerance Comments: Breast discharge POISON LAITH EXTRACT 04/06/2023 2 - Rash Date Reviewed: 09/11/2023 Reviewed by: Jenifer Barnard MAKI - Fully Assessed Reason for Visit: Consult [173] Primary Visit Diagnosis:Urinary urgency [R39.15] Prescriptions as of 09/11/2023 - atenolol (TENORMIN) 25 mg tablet Take 1 tablet by mouth every afternoon. - AJOVY AUTOINJECTOR 225 mg/1.5 mL auto-injector inject 1 AND 1/2 milliliters subcut (more content not included)... Normal [facility] Orders Onlyon 09-01-2023 Orders Only [id number] Elvis,Denversybil en 1970 F Date Provider Department [place] 09/01/2023 GIANA JAMES [facility] PS[facility] Gerardo Heal No family history on file Normal [facility] Behavioral Health Telemedici neon 08-23-2023 Behavioral Health Telemedicine [id number] Darrian Lealen 1970 Date Provider Department [place] 08/23/2023 GIANA JAMES [facility] PSYCH Gerardo Heal No family history on file Level of Service:76095 OR OFFICE/OUTPATIENT ESTABLISHED MOD MDM 30-39 MIN Normal [facility] Orders Onlyon 08-21-2023 Orders Only [id number] ElvisDarrian arriaza en 1970 Provider Department [place] 08/21/2023 GIANA JAMES [facility] PS[facility] Gerardo Heal No family history on file Normal [facility] BASIC METABOLIC PANELon 10-0 Anion gap [Moles/Vol] 1 mmol/L Low 8-12 [facility] Comment on above: Performed By: #### 4 [id number], [id number], [id number], [id number] #### [address] [place] [address] [place] Calcium [Mass/Vol] 9.2 mg/dL Normal 8.4-10.4 [facility] Comment on above: Performed By: #### 4 [id number], [id number], [id number], [id number] #### [address] [place] [address] [place] Chloride [Moles/Vol] 105 mmol/L Normal 96-109 [facility] Comment on above: Performed By: #### 4 [id number], [id number], [id number], [id number] #### [address] [place] [address] [facility] CO2 [Moles/Vol] 32 mmol/L High 22-30 [facility] Comment on above: Performed By: #### 4 [id number], [id number], [id number], [id number] #### [address] [place] [address] [facility] Creatinine [Mass/Vol] 0.67 mg/dL Normal 0.52-1.04 [facility] Comment on above: Performed By: #### 4 [id number], [id number], [id number], [id number] #### [facility] [address] [place] [address] [facility] GLOMERULAR FILTRATION RATE ML/MIN/1.73 SQ M.PREDICTED >90.0 Normal >=60.0 [facility] Comment on above: Result Comment: eGFR calculation [...] Kidney Int Suppl.2013;3:1-150 Performed By: #### 4 [id number], [id number], [id number], [id number] #### [address] [place] [address] [place] Glucose [Mass/Vol] 104 mg/dL High 65-100 [facility] Comment on above: Performed By: #### 4 [id number], [id number], [id number], [id number] #### [address] [place] [address] [facility] Potassium [Moles/Vol] 4.6 mmol/L Normal 3.6-5.1 [facility] Comment on above: Performed By: #### 4 [id number], [id number], [id number], [id number] #### [address] [place] [address] [place] Sodium [Moles/Vol] 138 mmol/L Normal 135-147 [facility] Comment on above: Performed By: #### 4 [id number], [id number], [id number], [id number] #### [address] Urea nitrogen [Mass/Vol] 16 mg/dL Normal 8-26 [facility] Comment on above: Performed By: #### 4 [id number], [id number], [id number], [id number] #### [address] Basic metabolic panel aka Ch em 8on 08-12-2023 Anion gap [Moles/Vol] 1 mmol/L Low 8 - 12 mmol/L [facility] Calcium [Mass/Vol] 9.2 mg/dL 8.4 - 10. 4 mg/dL [facility] Calcium hydrogen phosphate dihydrate crystals LM Ql (Urine sed) 16 mg/dL 8 - 26 mg/dL [facility] Chloride [Moles/Vol] 105 mmol/L 96 - 10 9 mmol/L [facility] CO2 (BldMV) [Moles/Vol] 32 mmol/L High 22 - 30 mmol/L [facility] Creatinine [Mass/Vol] 0.67 mg/dL 0.52 - 1.04 mg/dL [facility] GFR/1.73 sq M.predicted MDRD (S/P/Bld) [Vol rate/Area] - PINF [facility] Comment on above: eGFR calculation bas ed [...] mg/dL High 65 - 100 mg/dL [facility] Interpretation and review of laboratory results Abnormal [facility] Potassium [Moles/Vol] 4.6 mmol/L 3.6 - 5.1 mmol/L [facility] Sodium [Moles/Vol] 138 mmol/L 135 - 147 mmol/L [facility] CBC AND DIFFERENTIALon 08-12 ABSOLUTE BASOPHIL 0.0 x10*3/uL Normal 0.0-0.1 [facility] Comment on above: Performed By: #### 4 [id number] #### [address] ABSOLUTE EOSINOPHIL 0.1 x10*3/uL Normal 0.1-0.3 [facility] Comment on above: Performed By: #### 4 [id number] #### [address] ABSOLUTE IMMATURE GRANULOCYTES 0.0 x10*3/uL Normal 0.0-0.1 [facility] Comment on above: Performed By: #### 4 [id number] #### [address] ABSOLUTE LYMPH 1.6 x10*3/uL Normal 1.2-3.3 [facility] Comment on above: Performed By: #### 4 [id number] #### [address] ABSOLUTE MONO 0.3 x10*3/uL Normal 0.2-0.6 [facility] Comment on above: Performed By: #### 4 [id number] #### [address] ABSOLUTE NEUTROPHIL 3.1 x10*3/uL Normal 2.4-6.6 [facility] Comment on above: Performed By: #### 4 [id number] #### [address] Basophils/100 WBC (Bld) 0.8 % Normal [facility] Comment on above: Performed By: #### 4 [id number] #### [address] Eosinophils/100 WBC (Bld) 2.7 % Normal [facility] Comment on above: Performed By: #### 4 [id number] #### [address] Erythrocyte distribution width (RBC) [Ratio] 13.0 % Normal 11.5-14.5 [facility] Comment on above: Performed By: #### 4 [id number] #### [address] Hematocrit (Bld) [Volume fraction] 37.5 % Normal 33.6-46.8 [facility] Comment on above: Performed By: #### 4 [id number] #### [address] Hemoglobin (Bld) [Mass/Vol] 11.8 g/dL Normal 11.7-15.8 [facility] Comment on above: Performed By: #### 4 [id number] #### [address] Immature granulocytes/100 WBC (Bld) 0.4 % Normal [facility] Comment on above: Performed By: #### 4 [id number] #### [address] Lymphocytes/100 WBC (Bld) 31.5 % Normal [facility] Comment on above: Performed By: #### 4 [id number] #### [address] MCH (RBC) [Entitic mass] 26.5 pg Low 27.5-32.3 [facility] Comment on above: Performed By: #### 4 [id number] #### [address] MCHC (RBC) [Mass/Vol] 31.5 g/dL Normal 30.7-35.5 [facility] Comment on above: Performed By: #### 4 [id number] #### [address] MCV (RBC) [Entitic vol] 84.3 fL Normal 80.2-99 [facility] Comment on above: Performed By: #### 4 [id number] #### [address] Monocytes/100 WBC (Bld) 5.4 % Normal [facility] Comment on above: Performed By: #### 4 [id number] #### [address] Neutrophils/100 WBC (Bld) 59.2 % Normal [facility] Comment on above: Performed By: #### 4 [id number] #### [address] NUCLEATED RED BLOOD CELLS AUTO 0.0 % Normal 0.0-1.0 [facility] Comment on above: Performed By: #### 4 [id number] #### [address] PLATELET COUNT 299 x10*3/uL Normal 150-400 [facility] Comment on above: Performed By: #### 4 [id number] #### [address] RED BLOOD CELL COUNT 4.45 x10*6/uL Normal 3.60-5.20 [facility] Comment on above: Performed By: #### 4 [id number] #### [address] WHITE BLOOD CELLS 5.2 x10*3/uL Normal 4.3-10.3 [facility] Comment on above: Performed By: #### 4 [id number] #### [address] CBC with differentialOrdered By: Background Lab on 08-12-2023 Absolute Immature Granulocytes 0.0 [facility] Age [Time] 84.3 fL 80.2 - 99 fL [facility] Age [Time] 26.5 pg Low 27.5 - 32.3 pg [facility] Age [Time] 31.5 g/dL 30.7 - 35.5 g/dL [facility] B. burgdorferi IgM IB Ql (CSF) 31.5 % [facility] Basophils (Bld) [#/Vol] 0.0 10*3/uL [facility] Basophils/100 WBC (Body fld) 0.8 % [facility] Eosinophils (Bld) [#/Vol] 1.6 10*3/uL [facility] Eosinophils (Bld) [#/Vol] 0.3 10*3/uL [facility] Eosinophils (Bld) [#/Vol] 0.1 10*3/uL [facility] Eosinophils/100 WBC (Bld) 2.7 % [facility] Erythrocyte distribution width (RBC) [Ratio] 13.0 % 11.5 - 14.5 % [facility] Hematocrit (Bld) [Volume fraction] 37.5 % 33.6 - 46.8 % [facility] Hexanoylglycine (U) [Moles/Vol] 11.8 g/dL 11.7 - 15.8 g/dL [facility] Immature granulocytes/100 WBC (Bld) 0.4 % [facility] Interpretation and review of laboratory results Abnormal [facility] Monocytes/100 WBC (Bld) 5.4 % [facility] Neurotensin (P) [Mass/Vol] 59.2 % [facility] Neutrophils (Bld) [#/Vol] 3.1 10*3/uL [facility] Nucleated RBC/100 WBC (Bld) [Ratio] 0.0 % 0.0 - 1.0 % [facility] Platelets (Bld) [#/Vol] 299 10*3/uL [facility] RBC (Bld) [#/Vol] 4.45 10*6/uL [employer] WBC (Bld) [#/Vol] 5.2 10*3/uL [facility]NOW [facility] CT ABDOMEN PELVIS WITH IV CO NTRASTon [...] 20 RAC Omni 300 100 ml Normal [facility] HEPATIC FUNCTION PANELon Albumin [Mass/Vol] 4.0 g/dL Normal 3.5-5.0 [facility] Comment on above: Performed By: #### 4 [id number], [id number], [id number], [id number] #### [address] [address] ALK PHOS 104 U/L Normal 24-126 [facility] Comment on above: Performed By: #### 4 [id number], [id number], [id number], [id number] #### [address] [address] ALT [Catalytic activity/Vol] 50 U/L High 4-35 [facility] Comment on above: Performed By: #### 4 [id number], [id number], [id number], [id number] #### [address] [address] [facility] AST [Catalytic activity/Vol] 59 U/L High 3-47 [facility] Comment on above: Performed By: #### 4 [id number], [id number], [id number], [id number] #### [address] [address] [facility] Bilirubin [Mass/Vol] 0.1 mg/dL Low 0.2-1.6 [facility] Comment on above: Performed By: #### 4 [id number], [id number], [id number], [id number] #### [address] [address] [facility] Bilirubin.indirect [Mass/Vol] 0.1 mg/dL Normal <=0.5 [facility] Comment on above: Performed By: #### 4 [id number], [id number], [id number], [id number] #### [address] [address] [facility] Protein [Mass/Vol] 6.6 g/dL Normal 6.3-8.2 [facility] Comment on above: Performed By: #### 4 [id number], [id number], [id number], [id number] #### [address] [address] [facility] Hepatic Function Panelon Albumin (Syn fld) [Mass/Vol] 4.0 g/dL 3.5 - 5.0 g/dL [facility] Aldosterone (U) [Mass/Vol] 104 U/L 24 - 126 U/L [facility] ALT [Catalytic activity/Vol] 50 U/L High 4 - 35 U/L [facility] AST [Catalytic activity/Vol] 59 U/L High 3 - 47 U/L [facility] Bilirubin [Mass/Vol] 0.1 mg/dL Low 0.2 - 1 .6 mg/dL [facility] Bilirubin.conjugated [Mass/Vol] 0.1 mg/dL NINF - 0.5 mg/dL [facility] Protein [Mass/Vol] 6.6 g/dL 6.3 - 8.2 g/dL [facility] LIPASEon 08-12-2023 Lipase [Catalytic activity/Vol] 11 U/L Low 23-300 [facility] Comment on above: Performed By: #### 4 [id number], [id number], [id number], [id number] #### [place] [id number] [address] Lipaseon 08-12-2023 Lipase [Catalytic activity/Vol] 11 U/L Low 23 - 300 U/L [facility] No Panel Informationon 08-12 Extra Tube Hold for add-ons. 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 Performed By: #### 4 [id number] #### [place] [address] [place] [address] TROPONIN I SERIESon 08-12-20 Troponin I.cardiac [Mass/Vol] ng/mL Normal <=0.033 [facility] Comment on above: Result Comment: Nega tive: No detectable troponin-I. Performed By: #### 4 [id number], [id number], [id number], [id number] #### [address] Troponin I (One time)on Interpretation and review of laboratory results Normal [facility] Troponin I.cardiac [Mass/Vol] ng/mL [facility] - [facility] ng/mL [facility] Comment on above: Negative: No detectable troponin-I. [facility] Troponin I - Series (X 3)on 08-12-2023 Interpretation and review of laboratory results Normal [facility] Troponin I.cardiac [Mass/Vol] ng/mL [facility] - 0.033 ng/mL [facility] Comment on above: Negative: No detectable troponin-I. [facility] URINALYSIS WITH REFLEX CULTU REon 08-12-2023 Appearance (U) Clear Normal [facility] Comment on above: Performed By: #### 4 [id number] #### [address] BILIRUBIN UA Negative Normal Negative [facility] Comment on above: Performed By: #### 4 [id number] #### [address] Color (U) Yellow Normal [facility] Comment on above: Performed By: #### 4 [id number] #### [place] [address] [place] Glucose Ql (U) Negative Normal Negative [facility] Comment on above: Performed By: #### 4 [id number] #### [address] [address] Ketones Ql (U) Negative Normal Negative [facility] Comment on above: Performed By: #### 4 [id number] #### [address] [address] [place] LEUKOESTERASE Negative Normal Negative [facility] Comment on above: Performed By: #### 4 [id number] #### [address] [address] [place] MUCOUS-URINE Occasional Normal [facility] Comment on above: Performed By: #### 4 [id number] #### [address] [address] [place] Nitrite Ql (U) Negative Normal Negative [facility] Comment on above: Performed By: #### 4 [id number] #### [address] OCCULT BLD Negative Normal Negative [facility] Comment on above: Performed By: #### 4 [id number] #### [address] PH, URINE 5.0 Normal [facility] Comment on above: Performed By: #### 4 [id number] #### [address] Protein Ql (U) Negative Normal Negative [facility] Comment on above: Performed By: #### 4 [id number] #### [address] RBC LM.HPF (Urine sed) [#/Area] /[HPF] Normal <=5 [facility] Comment on above: Performed By: #### 4 [id number] #### [address] SPECIFIC GRAVITY, URINE 1.025 Normal [facility] Comment on above: Performed By: #### 4 [id number] #### [address] SQUAMOUS EPI CELLS 51 /LPF Normal [facility] Comment on above: Performed By: #### 4 [id number] #### [address] UROBILINOGEN UA Negative Normal <2.0 [facility] Comment on above: Performed By: #### 4 [id number] #### [address] WBC LM.HPF (Urine sed) [#/Area] 2 /[HPF] Normal <=5 [facility] Comment on above: Performed By: #### 4 [id number] #### [address] Urinalysis complete W Reflex Culture panel (U)on 08-12-2023 Acetone [Mass/Vol] Negative Negative [facility] Appearance (Body fld) Clear Gen [facility] Bilirubin Ql (U) Negative Negative [facility] Color (Stone) Yellow [facility] G6PD (RBC) [Catalytic activity/Vol] Negative Negative [facility] Hemoglobin Ql (U) NINF [facility] Leukocyte esterase Test strip Ql (U) Negative Negative [facility] Mucor racemosus IgE Qn (S) Occasional /LPF [facility] Nitrite Test strip (U) [Mass/Vol] Negative Negative [facility] pH (Migue fld) 5.[address] [facility] Protein (U) [Mass/Vol] Negative Negative Ge [facility] [place] IgE Qn (S) Negative Negative Genesi s [facility] Specific gravity (U) [Rel density] 1.[address] [facility] Spherocytes LM Ql (Bld) 51 /LPF [facility] Urobilinogen Qn (U) Negative NINF - 2.0 [facility] WBC (U) [#/Vol] 2 /uL [facility] 36on 08-02-2023 36 Call placed to patiblanca nt to discuss how often she is taking Miralax. Patient is taking Miralax once daily as instructed. Per Alba Montague she was instructed that she can take it twice a day. Also advised patient that Alba Montague will be consulting with the physician who performed her procedure. Normal [facility] Orders Onlyon 08-02-2023 Orders Only [id number] Darrian Leal 1970 F Date Provider Department Center 08/02/2023 [facility]NA [facility] Gerardo Heal No family history on file Normal [facility] CNOVon 07-31-2023 ANANDA Office Visit (SHERON ) ----- MARY LEAL ([id number]) 1970 F Date Time Provider Department 07/31/23 2:30 PM NELSY CHÁVEZ During your visit today, we recorded the following information about you: Pulse Blood pressure Weight Height 76/minute 136/96 69.9 kg 1.626 m Nelsy Chávez APRN.LINING CLOSER 07/31/2023 5:35 PM Signed Female Pelvic Medicine [...] new Pain: no Abnormal Vaginal Discharge: no RN EMBEDDED 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 She has no history of an abnormal mammogram with cysts on US LMP: No LMP recorded. Patient has had a hysterectomy.; Menopause 3 years ago; hysterectomy in 2014: Menstrual history: NA; Deliveries: I have confirmed and edited as necessary, the PFSH obtained by others. Nelsy Chávez APRN.LINING CLOSER Material Manager offered: Patient declines. OBJECTIVE: There were no [...] for now d/t side effects Nelsy Chávez APRN.LINING CLOSER I spent a total of 45 minutes on the date of the service which included preparing to see the patient, uqbw-qd-lgln patient care, completing clinical documentation, performing a [...] [R35.0] Nocturia [R35.1] Order(s):UA DIP, URINE (POC) [[id number]] Order #: [id number]. #:[id number] 45-LAB URODYNAMICS [facility] [[id number]] Order #: [id number] Prescriptions as of 07/31/2023 - atenolol (TENORMIN) [...] 10 m (more content not included)... Normal [facility] UA DIP, URINE (POC)on 2022 BILIRUBIN UA (POCT) Negative Negative [facility] CLARITY UA (POCT) Clear [facility] COLOR UA (POCT) Yellow [facility] GLUCOSE UA (POCT) Negative Negative mg/dL [facility] Hemoglobin Ql (U) Negative Negative [facility] KETONE UA (POCT) Negative Negative mg/dL [facility] LEUKOCYTES UA (POCT) Negative Negative [facility] NITRITE UA (POCT) Negative Negative [facility] PH UA (POCT) 5.0 4.5 - 8.0 [facility] Protein Ql (U) Negative Negative mg/dL [facility] SPECIFIC GRAVITY UA (POCT) 1.010 1.005 - 1.030 [facility] UROBILINOGEN UA (POCT) 0.2 E.U./dL Brenda l E.U./dL [facility] HISTOLOGY - TISSUE EXAMon LAB AP [...] Clinical Laboratory Improvement Amendments of 1998. Normal [facility] Comment on above: Performed By: #### L [id number] ####[facility] (BEAKER)[address] [place] [address] LAB AP CASE REPORT Normal [facility] Comment on above: Result Comment: Surg ical Pathology Case: [id number] Authorizing Provider: Matteo Quinones MD Collected: 07/25/2023 1126 Ordering Location: Eliceo Ric[facility] Received: 07/25/2023 1233 [facility] [place] Pathologist: Boni Benito MD Specimens: A) - Small Intestine, Duodenum, R/O CELIAC B) - Gastric, R/O H PYLORI C) - Distal Esophagus, R/O EOE D) - Proximal Esophagus, R/O EOE E) - Small Intestine, Terminal Ileum, R/O COLITIS Performed By: #### L [id number] ####[facility] (BEAKER)[address] [facility] [place] [address] LAB AP CLINICAL INFORMATION Order Diagnoses Normal [facility] Comment on above: Result Comment: K21. 9 - Gastroesophageal reflux disease without esophagitis [ICD-10-CM] R11.0 - Nausea [ICD-10-CM] R19.7 - Diarrhea, unspecified type [ICD-10-CM] Performed By: #### L [id number] ####[facility] (BEAKER)[address] [facility] [place] [address] LAB AP GROSS DESCRIPTION Normal [facility] Comment on above: Result Comment: A. S mall Intestine, Duodenum. Received in formalin in a container labeled Mary Elvis, Duodenum R/O CELIAC . It consists of [...] Goetz, PGY 1 Performed By: #### L [id number] ####[facility] (BEAKER)[address] [place] [address] LAB AP MICROSCOPIC DESCRIPTION Microscopic examination performed. [facility] Comment on above: Performed By: #### L [id number] ####[facility] (BEAKER)[address] [facility] [place] [address] LAB AP REPORT FINAL DIAGNOSIS NARRATIVE [facility] Comment on above: Result Comment: A. [...] or malignancy identified. Performed By: #### L [id number] ####[facility] ([facility])[address] [place] [address] [facility] 07-25-2023 H&P reviewed. The rigoberto montemayor was examined and there are no changes to the H&P. [facility] HP ----- ----- Attestation signed by Matteo [...] bowel movements. Plan EGD and colonoscopy Normal [facility] NURSNOTEon 07-25-2023 NURSNOTE ANASTOMOSIS SITE REACHED Normal [facility] Orders Onlyon 07-25-2023 Orders Only [id number] ElvisDarrian en 1970 F Date Provider Department Center 07/25/202391989-OLVUQFILIPE PAZ MP [facility] Pavi No family history on file Normal [facility] POCT GLUCOSE METER UNSOLICIT ED RESULTSon 07-25-2023 Glucose [Mass/Vol] 87 mg/dL Normal 70-105 [facility] Comment on above: Order Comment: Waive d Testing in the ED is performed under the ED CLIA certificate #[id number]. Result Comment: dhol as Performed By: #### L [id number] #### [facility] ([facility]ER) [address] [place] [address] Orders Onlyon 07-21-2023 Orders Only [id number] Darrian Leal en 1970 F Date Provider Department Center 07/21/2023 ARELI [facility] No family history on file Normal [facility] Orders Onlyon 07-19-2023 Orders Only [id number] Darrian Leal en 1970 F Date Provider Department Center 07/19/2023 Karli-GIANA MORALES [facility] Gerardo Heal No family history on file Normal [facility] Prep for Procedureon 023 Prep for Procedure [id number] Darrian Leal en 1970 F Date Provider Department Center 07/17/2023 Sakina-TIFFANIELENCHOMATTEO [facility] No family history on file Normal [facility] HPon 07-11-2023 HP Formatting of this n ote is different from the original. Images from the original note were not included. [facility] [address] [place] [address] [address] [place] [id number] SUBJECTIVE: Patient ID: Mary Leal is a [...] Takes Dexilant daily, sees Dr. Montague at [facility]. HISTORY: Past Medical History: Diagnosis Date ADD (attention deficit disorder) Anxiety Asthma Bipolar disorder ([facility]) Depression Dysphagia Gastric paresis GERD (gastroesophageal reflux disease) Headache migraines History of pleurisy STATES 2 WEEKS AGO Hypertension Obesity Primary insomnia 07/07/2020 Rectal bleeding Restless leg syndrome Visual impairment one contact left, glasses Past Surgical History: Procedure Laterality Date APPENDECTOMY ARTHROSCOPIC REPAIR ACL Left COLONOSCOPY COLONOSCOPY with bx's N/A 03/20/2020 Performed by Noman Mayo MD at [facility] ENDOSCOPY EGD, DILATATION N/A 09/25/2020 Performed by Noman Mayo MD at [facility] ENDOSCOPY FOOT SURGERY 06/25/2020 left foot surgery HYSTERECTOMY LASER LINGUAL TONISILLECTOMY Circumferential 07/08/2021 Performed by Areli Avila MD PhD at [facility] MRI FOOT LEFT NECK SURGERY PLANTAR FASCIECTOMY RELEASE PHARYNGEAL SCAR CPT 14132 Circumferential 07/08/2021 Performed by Areli Avila MD PhD at [facility] RESECTION SUBMUCOSAL NASAL Bilateral 02/11/2021 Performed by Areli Avila MD PhD at [facility] SEPTOPLASTY Circumferential 02/11/2021 Performed by Areli Avila MD PhD at [facility] TONSILLECTOMY Bilateral 02/11/2021 Performed by Areli Avila MD PhD at [facility] uvuloplasty N/A 02/11/2021 Performed by Areli Avila MD PhD at [facility] Family History Problem Relation Age of Onset [...] tablet (3 mg total) by mouth nightly. setjsqdbdmc-mfginjopq-tqb anter (TRELEGY ELLIPTA) 100-62.5-25 mcg blister with [...] day, no mor (more content not included)... Normal [facility] Orders Onlyon 06-26-2023 Orders Only [id number] Darrian Leal 1970 F Date Provider Department Center 06/26/2023 GIANA JAMES [facility] Gerardo Heal No family history on file [facility] Office Visit (Cardiology)on 06-13-2023 Follow-up visit Diagnoses/Problems Assessed Chest pain (786.50) (R07.9) Elevated troponin (790.6) (R77.8) Fatigue (780.79) (R53.83) Never a smoker Overweight with body mass index (BMI) of 27 to 27.9 in adult (278.02,V85.23) (E66.3,Z68.27) Orders Elevated troponin IO EKG Electrocardiogram- 12 Lead; Status:Active - Perform Order,Retrospective Authorization; Requested for:[id number]; Overweight with body mass index (BMI) of 27 to 27.9 in adult Healthy Weight Tips; Status:Complete - Retrospective Authorization; Done: [id number] Some eating tips that can help you lose weight.; Status:Complete - Retrospective Authorization; Done: [id number] SocHx: Never a smoker Tobacco Use Screening; Status:Complete; Done: [id number] Patient Instructions Please bring all medicines, vitamins, [...] weakness, dizziness, diaphoresis with recent work-up that [facility] emergency room. Reportedly her troponins are elevated [...] of which are currently being investigated at [facility] (now her fourth GI specialist). Last year while in [place] she had similar issues with elevated troponins in the ED and underwent heart catheterization that did not reveal any specific significant disease, details of the discharge summary are reviewed She underwent recent stress perfusion imaging at [facility], the report is reviewed, she has no [...] disease, will investigate the troponin rise at [facility] however I believe this is likely a non-[place] troponin elevation, likely associated with underlying inflammatory [...] negative for complaint. Vitals Vital Signs Recorded: [id number] 10:37AM Heart Rate70, Apical Yvfuhzaf668, RUE, Sitting Lowlcmivr57, RUE, Sitting Height5 ft 4 in Hsqzfd169 lb BMI Facoweteyo07.46 kg/m2 BSA Calculated1.78 Tobacco Useb) No PHQ-2 [...] Screening.on 023 Adult depression screening assessment No [facility] [address] DO Work Phone: Adult depression screening assessment Yes [facility] io [facility] [address] DO Work Phone: Adult depression screening assessment Moderate (10-14) [facility] [facility] DO Work Phone: [phone] Fall risk assessment a) No falls within the last year [facility] [address] DO Work Phone: Tobacco use status CP b) No [facility] [address] DO Work Phone: [phone] Tobacco Screening. 1-Several days [facility] [address] DO Work Phone: Tobacco Screening. 3-Nearly every day [facility] [address] DO Work Phone: Tobacco Screening. 0-Not at all [facility] [address] DO Work Phone: Tobacco Screening. Somewhat Difficult [facility] [address] DO Work Phone: STR cardiac stress/lexiscano n 06-09-2023 STR cardiac stress/lexiscan [facility] Main [place] [id number] Cardiac Stress Test Signed Patient: Mary Leal MR#: [id number] : 1970 Acct:[id number] Age/Sex: 53 / F ADM Date: 06/05/23 Loc: ER Room: Type: [facility] ER Attending Dr: Copies to: DO [...] 06/09/23 1614 Dictated By: Marielle Scruggs MD, [facility] 06/09/23 1550 Signed By: 06/10/23 0903 [facility] Telemedici neon 06-08-2023 Behavioral Health Telemedicine [id number] Mary Leal 1970 F Date Provider Department Center 06/08/2023 GIANA JAMES [facility] Gerardo Heal No family history on file Level of Service:42080 OR OFFICE/OUTPATIENT ESTABLISHED MOD MDM 30-39 MIN Reason for Visit and Comments: Telehealth Audio/video Visit [871] Normal [facility] NM mirtha perf SPECT rest stron 06-08-2023 NM mirtha perf SPECT rest str [facility] [place] [address] Nuclear Medicine Report Signed Patient: Mary Leal MR#: [id number] : 1970 Acct:[id number] Age/Sex: 53 / F ADM Date: 06/05/23 Loc: ER Room: Type: [facility] ER Attending Dr: Copies to: DO Marielle Soto MD, [facility] Ordering Provider: Anibal Valel DO Date of Service: 06/07/23 NM/NM mirtha [...] 06/08/23 1659 Dictated By: Marielle Scruggs MD, [facility] 06/08/23 1540 Signed By: 06/09/23 1532 Normal [facility] 36on 06-05-2023 36 Patient calls wonder ing about her calprotectin being high. Please advise Normal [facility] Activated partial thrombopla stin time (aPTT) in platelet poor plasma by coagulation aOrdered By: Anibal Vlale on 06-05-2023 aPTT Coag (PPP) [Time] 28.0 s 25.1-36.5 [facility] B-Type Natriuretic Peptideon 06-05-2023 Natriuretic peptide B (Bld) [Mass/Vol] 39.0 pg/mL Normal 5-100 [facility] Comment on above: Result Comment: PERF ORMED BY: [place] [address] PATHOLOGIST MOUNTER SOUSAPHONES LEVAR CASE M.D. Performed By: #### T 4T, ESR, URIC, CRP, TSH3 #### [address] #### RA, CHUYITA #### [facility] , Basic Metabolic Panelon 05-08 Anion gap [Moles/Vol] 10.6 mmol/L Normal 6.0-15.0 [facility] Comment on above: Performed By: #### T 4T, ESR, URIC, CRP, TSH3 #### [place] [address] [place] #### RA, CHUYITA #### [facility] , Calcium [Mass/Vol] 9.0 mg/dL Normal 8.6-10.3 [facility] Comment on above: Performed By: #### T 4T, ESR, URIC, CRP, TSH3 #### [facility] [address] [place] [address] #### RA, CHUYITA #### [facility] , Chloride [Moles/Vol] 108 mmol/L High 98-107 [facility] Comment on above: Performed By: #### T 4T, ESR, URIC, CRP, TSH3 #### [facility] [address] [place] [address] #### RA, CHUYITA #### [facility] , CO2 [Moles/Vol] 23.2 mmol/L Normal 21.0-31.0 [facility] Comment on above: Performed By: #### T 4T, ESR, URIC, CRP, TSH3 #### [facility] [address] [place] [address] #### RA, CHUYITA #### [facility] , Creatinine [Mass/Vol] 0.67 mg/dL Normal 0.60-1.20 [facility] Comment on above: Performed By: #### T 4T, ESR, URIC, CRP, TSH3 #### [facility] [address] [place] [address] [place] #### RA, CHUYITA #### [facility] , Creatinine Clr Calc Pharmacy 97.82 [facility] Comment on above: Result Comment: PERF ORMED BY: [place] [address] PATHOLOGIST MOUNTER SOUSAPHONES LEVAR CASE M.D. Performed By: #### T 4T, ESR, URIC, CRP, TSH3 #### [facility] [address] [place] [address] [place] #### RA, CHUYITA #### [facility] , GFR/1.73 sq M.predicted MDRD (S/P/Bld) [Vol rate/Area] mL/min/{1.73_m2} Normal [facility] Comment on above: Performed By: #### T 4T, ESR, URIC, CRP, TSH3 #### [address] #### RA, CHUYITA #### [facility] , Glucose [Mass/Vol] 106 mg/dL High 70-100 [facility] Comment on above: Result Comment: [place] Glucose Reference Range is dependent on time and content of last meal. Glucose of more than 200 mg/dL in a nonstressed, ambulatory subject supports the diagnosis of Diabetes Mellitus. ADA recommended reference range Performed By: #### T 4T, ESR, URIC, CRP, TSH3 #### [address] #### RA, CHUYITA #### [facility] , Potassium [Moles/Vol] 3.8 mmol/L Normal 3.5-5.1 [facility] Comment on above: Performed By: #### T 4T, ESR, URIC, CRP, TSH3 #### [facility] [address] [place] [address] [place] #### RA, CHUYITA #### [facility] , Sodium [Moles/Vol] 138 mmol/L Normal 136-145 [facility] Comment on above: Performed By: #### T 4T, ESR, URIC, CRP, TSH3 #### [place] [address] [place] #### RA, CHUYITA #### [facility] , Urea nitrogen [Mass/Vol] 10 mg/dL Normal 7-25 [facility] Comment on above: Performed By: #### T 4T, ESR, URIC, CRP, TSH3 #### [place] [address] [place] #### RA, CHUYITA #### [facility] , Basophils Auto (Bld) [#/Vol] Ordered By: Anibal Valle on 06-05-2023 Basophils (Bld) [#/Vol] 0.0 10*3/uL 0.0-0.2 [facility] [facility] Basophils/100 WBC Auto (Bld) Ordered By: Anibal Valle on 06-05-2023 Basophils/100 WBC (Bld) 0.4 % . [facility] Calcium [Mass/volume] in Ser um or PlasmaOrdered By: Anibal Valle on 06-05-2023 Calcium [Mass/Vol] 9.0 mg/dL 8.6-10.3 [facility] Carbon dioxide, total [Moles /volume] in Serum or PlasmaOrdered By: Anibal Valle on 06-05-2023 CO2 [Moles/Vol] 23.2 mmol/L 21.0-31.0 [facility] Chloride [Moles/volume] in S jay or PlasmaOrdered By: Anibal Valle on 06-05-2023 Chloride [Moles/Vol] 108 mmol/L 98-107 [facility] Complete Blood Count Auto Di ffon 06-05-2023 Basophils (Bld) [#/Vol] 0.0 10*3/uL Normal 0.0-0.2 [facility] Comment on above: Result Comment: PERF ORMED BY: [place] [address] PATHOLOGIST MOUNTER SOUSAPHONES LEVAR CASE M.D. Performed By: #### T 4T, ESR, URIC, CRP, TSH3 #### [facility] [address] [place] [address] #### RA, CHUYITA #### [facility] , Basophils/100 WBC (Bld) 0.4 % Normal . [facility] Comment on above: Performed By: #### T 4T, ESR, URIC, CRP, TSH3 #### [facility] [address] [place] [address] [place] #### RA, CHUYITA #### [facility] , Eosinophils (Bld) [#/Vol] 0.1 10*3/uL Normal 0.0-0.45 [facility] Comment on above: Performed By: #### T 4T, ESR, URIC, CRP, TSH3 #### [facility] [address] [place] [address] [place] #### RA, CHUYITA #### [facility] , Eosinophils/100 WBC (Bld) 1.9 % Normal . [facility] Comment on above: Performed By: #### T 4T, ESR, URIC, CRP, TSH3 #### [place] [address] [place] #### RA, CHUYITA #### [facility] , Erythrocyte distribution width (RBC) [Ratio] 13.9 % Normal 11.9-15.3 [facility] Comment on above: Performed By: #### T 4T, ESR, URIC, CRP, TSH3 #### [place] [address] [place] #### RA, CHUYITA #### [facility] , Hematocrit (Bld) [Volume fraction] 34.4 % Normal 34.0-46.4 [facility] Comment on above: Performed By: #### T 4T, ESR, URIC, CRP, TSH3 #### [address] #### RA, CHUYITA #### [facility] , Hemoglobin (Bld) [Mass/Vol] 11.9 g/dL Normal 11.8-15.4 [facility] Comment on above: Performed By: #### T 4T, ESR, URIC, CRP, TSH3 #### [place] [address] [place] #### RA, CHUYITA #### [facility] , Lymphocytes (Bld) [#/Vol] 1.8 10*3/uL Normal 1.00-4.8 [facility] Comment on above: Performed By: #### T 4T, ESR, URIC, CRP, TSH3 #### [place] [id number] [place] #### RA, CHUYITA #### [facility] , Lymphocytes/100 WBC (Bld) 41.0 % Normal . [facility] Comment on above: Performed By: #### T 4T, ESR, URIC, CRP, TSH3 #### [facility] [address] [place] [address] #### RA, CHUYITA #### [facility] , MCH (RBC) [Entitic mass] 27.7 pg Normal 24.7-34.3 [facility] Comment on above: Performed By: #### T 4T, ESR, URIC, CRP, TSH3 #### [facility] [address] [place] [address] #### RA, CHUYITA #### [facility] , MCV (RBC) [Entitic vol] 80.2 fL Normal 80-100 [facility] Comment on above: Performed By: #### T 4T, ESR, URIC, CRP, TSH3 #### [address] #### RA, CHUYITA #### [facility] , Mean Corpuscular HGB Conc 34.5 g/dL Normal 32.0-35.0 [facility] Comment on above: Performed By: #### T 4T, ESR, URIC, CRP, TSH3 #### [facility] [address] [place] [address] #### RA, CHUYITA #### [facility] , Monocytes (Bld) [#/Vol] 0.3 10*3/uL Normal 0.0-0.8 [facility] Comment on above: Performed By: #### T 4T, ESR, URIC, CRP, TSH3 #### [address] #### RA, CHUYITA #### [facility] , Monocytes/100 WBC (Bld) 24.18 % High 0.00-20.00 [facility] Comment on above: Result Comment: For adults in ED, MDW > 20.0 may be associated with a higher risk of sepsis during the first 12 hrs of hospital admission Performed By: #### T 4T, ESR, URIC, CRP, TSH3 #### [facility] [address] [place] [address] #### RA, CHUYITA #### [facility] , Monocytes/100 WBC (Bld) 7.5 % Normal . [facility] Comment on above: Performed By: #### T 4T, ESR, URIC, CRP, TSH3 #### [facility] [address] [place] [address] [place] #### RA, CHUYITA #### [facility] , Neutrophils (Bld) [#/Vol] 2.2 10*3/uL Normal 1.8-7.7 [facility] Comment on above: Performed By: #### T 4T, ESR, URIC, CRP, TSH3 #### [facility] [address] [place] [address] #### RA, CHUYITA #### [facility] , Neutrophils/100 WBC (Bld) 49.2 % Normal . [facility] Comment on above: Performed By: #### T 4T, ESR, URIC, CRP, TSH3 #### [facility] [address] [place] [address] #### RA, CHUYITA #### [facility] , NRBC% 0.1 /100{WBC} Normal 0-0.5 [facility] Comment on above: Performed By: #### T 4T, ESR, URIC, CRP, TSH3 #### [facility] [address] [place] [address] [place] #### RA, CHUYITA #### [facility] , Platelet mean volume (Bld) [Entitic vol] 7.4 fL Normal 6.3-10.7 [facility] Comment on above: Performed By: #### T 4T, ESR, URIC, CRP, TSH3 #### [facility] [address] [place] [address] [place] #### RA, CHUYITA #### [facility] , Platelets (Bld) [#/Vol] 336 10*3/uL Normal 150-450 [facility] Comment on above: Performed By: #### T 4T, ESR, URIC, CRP, TSH3 #### [facility] [address] [place] [address] [place] #### RA, CHUYITA #### [facility] , RBC (Bld) [#/Vol] 4.29 10*6/uL Normal 3.60-5.00 [facility] Comment on above: Performed By: #### T 4T, ESR, URIC, CRP, TSH3 #### [facility] [address] [place] [address] [place] #### RA, CHUYITA #### [facility] , WBC (Bld) [#/Vol] 4.4 10*3/uL Normal 3.8-11.6 [facility] Comment on above: Performed By: #### T 4T, ESR, URIC, CRP, TSH3 #### [facility] [address] [place] [address] [place] #### RA, CHUYITA #### [facility] , Creatinine [Mass/volume] in Serum or PlasmaOrdered By: Anibal Valle on 06-05-2023 Creatinine [Mass/Vol] 0.67 mg/dL 0.60-1.20 [facility] ECG 12 lead ECGon 06-05-2023 ECG 12 lead ECG [facility] [place] [address] [place] [address] Electrocardiograph Report Signed Patient: Mary Leal MR#: [id number] : 1970 Acct:[id number] Age/Sex: 53 / F ADM Date: 06/05/23 Loc: ER Room: Type: [facility] ER Attending Dr: Ordering Provider: Olayinka Corado MD, RES Date of Service: 07/ ECG/ECG 12 lead ECG: Chest Pain Copies [...] was found Confirmed by ANIBAL VALLE DO ([id number]) on 06/05/2023 4:21:05 PM Referred By: Electronically Signed By:ANIBAL VALLE DO Transcribed By: BRIDGETTE Signed By Anibal Valle DO 06/[address] [place] [address] ECG 12 lead ECG [facility] [place] [address] Electrocardiograph Report Signed Patient: Mary Leal MR#: [id number] : 1970 Acct:[id number] Age/Sex: 53 / F ADM Date: 06/05/23 Loc: ER Room: Type: [facility] ER Attending Dr: Ordering Provider: Anibal [...] was found Confirmed by ANIBAL VALLE DO ([id number]) on 06/05/2023 4:21:06 PM Referred By: Electronically Signed By:ANIBAL VALLE DO Transcribed By: MUS Signed By Anibal Valle DO 06/05 [facility] Eosinophils Auto (Bld) [#/Vo l]Ordered By: Anibal Valle on 06-05-2023 Eosinophils (Bld) [#/Vol] 0.1 10*3/uL 0.0-0.45 [facility] Eosinophils/100 WBC Auto (Bl d)Ordered By: Anibal Valle on 06-05-2023 Eosinophils/100 WBC (Bld) 1.9 % . [facility] Erythrocyte distribution wid th Auto (RBC) [Ratio]Ordered By: Anibal Valle on 06-05-2023 Erythrocyte distribution width (RBC) [Ratio] 13.9 % 11.9-15.3 [facility] Glucose [Mass/volume] in Ser um or PlasmaOrdered By: Anibal Valle on 06-05-2023 Glucose [Mass/Vol] 106 mg/dL 70-100 [facility] Comment on above: ADA recommended refe rence rangeRandom Glucose Reference Range is dependent on time and content of last meal. Glucose of more than 200 mg/dL in a nonstressed, ambulatory subject supports the diagnosis of Diabetes Mellitus. Hematocrit Auto (Bld) [Volum e fraction]Ordered By: Anibal Valle on 06-05-2023 Hematocrit (Bld) [Volume fraction] 34.4 % 34.0-46.4 [facility] Hemoglobin [Mass/volume] in BloodOrdered By: Anibal Valle on 06-05-2023 Hemoglobin (Bld) [Mass/Vol] 11.9 g/dL 11.8-15.4 [facility] Laboratory - CoagulationOrde red By: Anibal Valle on 06-05-2023 PT Coag (PPP) [Time] 12.0 s 9.0-12.9 [facility] Leukocytes [#/volume] correc herbert for nucleated erythrocytes in Blood by Automated counOrdered By: Anibal Valle on 06-05-2023 WBC corrected for nucl RBC Auto (Bld) [#/Vol] 4.4 10*3/uL 3.8-11.6 [facility] Lymphocytes Auto (Bld) [#/Vo l]Ordered By: Anibal Valle on 06-05-2023 Lymphocytes (Bld) [#/Vol] 1.8 10*3/uL 1.00-4.8 [facility] Lymphocytes/100 WBC Auto (Bl d)Ordered By: Anibal Valle on 06-05-2023 Lymphocytes/100 WBC (Bld) 41.0 % . [facility] MCH Auto (RBC) [Entitic mass ]Ordered By: Anibal Valle on 06-05-2023 MCH (RBC) [Entitic mass] 27.7 pg 24.7-34.3 [facility] MCHC Auto (RBC) [Mass/Vol]Or dered By: Anibal Valle on 06-05-2023 MCHC (RBC) [Mass/Vol] 34.5 g/dL 32.0-35.0 [facility] MCV Auto (RBC) [Entitic vol] Ordered By: Anibal Valle on 06-05-2023 MCV (RBC) [Entitic vol] 80.2 fL 80-100 [facility] Monocyte distribution width [Entitic volume] in Blood by AutomatedOrdered By: Anibal Valle on 06-05-2023 Monocyte distribution width Auto (Bld) [Entitic vol] 24.18 % 0.00-20.00 [facility] Comment on above: For adults in ED, MD W > 20.0 may be associated with a higher risk of sepsis during the first 12 hrs of hospital admission Monocytes Auto (Bld) [#/Vol] Ordered By: Anibal Valle on 06-05-2023 Monocytes (Bld) [#/Vol] 0.3 10*3/uL 0.0-0.8 [facility] Monocytes/100 WBC Auto (Bld) Ordered By: Anibal Valle on 06-05-2023 Monocytes/100 WBC (Bld) 7.5 % . [facility] Natriuretic peptide B [Mass/ Vol]Ordered By: Anibal Valle on 06-05-2023 Natriuretic peptide B (Bld) [Mass/Vol] 39.0 pg/mL 5-100 [facility] Neutrophils Auto (Bld) [#/Vo l]Ordered By: Anibal Valle on 06-05-2023 Neutrophils (Bld) [#/Vol] 2.2 10*3/uL 1.8-7.7 [facility] Neutrophils/100 WBC Auto (Bl d)Ordered By: Anibal Valle on 06-05-2023 Neutrophils/100 WBC (Bld) 49.2 % . [facility] No Panel InformationOrdered By: Anibal Valle on 06-05-2023 Estimated GFR (CKD-EPI) > 60.0 mL/Min [facility] Creatinine Clearance (Chem 97.82 [facility] Nucleated erythrocytes [Pres ence] in Blood by Automated countOrdered By: Anibal Valle on 06-05-2023 Nucleated RBC Auto Ql (Bld) 0.1 /100{WBC} 0-0.5 [facility] Partial Thromboplastin Timeo n 06-05-2023 aPTT Coag (Bld) [Time] 28.0 s Normal 25.1-36.5 [facility] Comment on above: Result Comment: PERF ORMED BY: [place] [address] PATHOLOGIST MOUNTER SOUSAPHONES LEVAR CASE M.D. Performed By: #### T 4T, ESR, URIC, CRP, TSH3 #### [place] [address] [place] #### RA, CHUYITA #### [facility] , Platelet mean volume Auto (B ld) [Entitic vol]Ordered By: Anibal Valle on 06-05-2023 Platelet mean volume (Bld) [Entitic vol] 7.4 fL 6.3-10.7 [facility] Platelet poor plasma interna tional normalized ratio (INR) by coagulation assay (relatOrdered By: Anibal Valle on 06-05-2023 INR Coag (PPP) [Relative time] 1.0 {INR} [facility] Comment on above: INR Therapeutic Rang e [...] 06-05-2023 Platelets (Bld) [#/Vol] 336 10*3/uL 150-450 [facility] Potassium [Moles/volume] in Serum or PlasmaOrdered By: Anibal Valle on 06-05-2023 Potassium [Moles/Vol] 3.8 mmol/L 3.5-5.1 [facility] Prothrombin Time INRon 06-05 INR Coag (PPP) [Relative time] 1.0 {INR} Normal [facility] Comment on above: Result Comment: INR Therapeutic [...] T 4T, ESR, URIC, CRP, TSH3 #### [facility] [address] [place] [address] #### RA, CHUYITA #### [facility] , PT Coag (PPP) [Time] 12.0 s Normal 9.0-12.9 [facility] Comment on above: Performed By: #### T 4T, ESR, URIC, CRP, TSH3 #### [facility] [address] [place] [address] #### RA, CHUYITA #### [facility] , RBC Auto (Bld) [#/Vol]Ordere d By: Anibal Valle on 06-05-2023 RBC (Bld) [#/Vol] 4.29 10*6/uL 3.60-5.00 [facility] Serum or plasma anion gap de terminationOrdered By: Anibal Valle on 06-05-2023 Anion gap [Moles/Vol] 10.6 mmol/L 6.0-15.0 [facility] Sodium [Moles/volume] in Ser um or PlasmaOrdered By: Anibal Valle on 06-05-2023 Sodium [Moles/Vol] 138 mmol/L 136-145 [facility] Troponin I High Sensitivityo n 06-05-2023 Troponin I High Sensitivity 2.5 pg/mL Normal 0.0-15.0 [facility] Comment on above: Result Comment: PERF ORMED BY: [place] [address] PATHOLOGIST MOUNTER SOUSAPHONES LEVAR CASE M.D. Performed By: #### T 4T, ESR, URIC, CRP, TSH3 #### [address] #### RA, CHUYITA #### [facility] , Troponin I High Sensitivity 2.6 pg/mL Normal 0.0-15.0 [facility] Comment on above: Result Comment: PERF ORMED BY: [place] [address] PATHOLOGIST MOUNTER SOUSAPHONES LEVAR CASE M.D. Performed By: #### T 4T, ESR, URIC, CRP, TSH3 #### [address] #### RA, CHUYITA #### [facility] , Troponin I.cardiac [Mass/vol ume] in Serum or Plasma by Detection limit <= 0.01 ng/Ordered By: Anibal Valle on 06-05-2023 Troponin I.cardiac DL <= 0.01 ng/mL [Mass/Vol] 2.6 pg/mL 0.0-15.0 [facility] Urea nitrogen [Mass/volume] in Serum or PlasmaOrdered By: Anibal Valle on 06-05-2023 Urea nitrogen [Mass/Vol] 10 mg/dL 7-25 [facility] WBC Auto (Bld) [#/Vol]Ordere d By: Anibal Valle on 06-05-2023 WBC (Bld) [#/Vol] 4.4 10*3/uL 3.8-11.6 [facility] XR chest 1V portableon 06-05 XR chest 1V portable [facility] [place] [address] XRay Report Signed Patient: Mary Leal MR#: [id number] [id number] : 1970 Acct:[id number] Age/Sex: 53 / F ADM Date: 06/05/23 [...] Andres Bullard M.D.06/05/2023 9:53 AM Dictation Location: [place] [address] Transcribed By: [facility] 06/05/23952 Dictated By: Andres Bullard DO 06/05/2352 Signed By: 06/05/2353 Normal [facility] 29on 05-31-2023 29 Addended by: KASSANDRA MONTAGUE on: 06/13/2023 03:40 PM Modules accepted: Orders Normal [facility] BASIC METABOLIC PANELon 07- Anion gap [Moles/Vol] 12 mmol/L Normal 7-20 [facility] Comment on above: Performed By: #### L [id number] #### [facility] [address] [place] [address] Calcium [Mass/Vol] 9.8 mg/dL Normal 8.6-10.3 [facility] Comment on above: Performed By: #### L [id number] #### [facility] [address] [place] [address] Chloride [Moles/Vol] 105 mmol/L Normal 98-107 [facility] Comment on above: Performed By: #### L [id number] #### [facility] [address] [place] [address] CO2 [Moles/Vol] 27 mmol/L Normal 21-31 [facility] Comment on above: Performed By: #### L [id number] #### [facility] ([facility]) [address] [place] [address] Creatinine [Mass/Vol] 0.75 mg/dL Normal 0.60-1.20 [facility] Comment on above: Performed By: #### L [id number] #### [facility] ([facility]) [address] [place] [address] GLOMERULAR FILTRATION RATE ML/MIN/1.73 SQ M.PREDICTED 96.3 mL/min/1.73m*2 Normal >60.0 [facility] Comment on above: Result Comment: The [facility]???s estimated glomerular filtration rate (eGFR) will [...] individuals. Performed By: #### L [id number] #### [facility] ([facility]) [address] [place] [address] Glucose [Mass/Vol] 103 mg/dL High 70-100 [facility] Comment on above: Performed By: #### L [id number] #### [facility] ([facility]) [address] [place] [address] Potassium [Moles/Vol] 4.6 mmol/L Normal 3.5-5.1 [facility] Comment on above: Performed By: #### L [id number] #### [facility] ([facility]) [address] [place] [address] Sodium [Moles/Vol] 139 mmol/L Normal 136-145 [facility] Comment on above: Performed By: #### L [id number] #### [facility] ([facility]) [address] [place] [address] Urea nitrogen [Mass/Vol] 16 mg/dL Normal 7-25 [facility] Comment on above: Performed By: #### L [id number] #### [facility] ([facility]) [address] [place] [address] UREA NITROGEN/CREATININE (MASS RATIO) IN SER/PLAS 21.3 Normal [facility] Comment on above: Performed By: #### L [id number] #### [facility] ([facility]) [address] [place] [address] C-REACTIVE PROTEINon 023 C REACTIVE PROTEIN (MG/L) IN SER/PLAS 2.7 mg/L Normal 0.0-7.0 [facility] Comment on above: Performed By: #### L [id number] #### [facility] ([facility]) [address] [place] [address] CALPROTECTIN STOOLon 023 CALPROTECTIN, FECAL 171 ug/g High <=49 [facility] Comment on above: Result Comment: REFE RENCE INTERVAL: Calprotectin, Fecal by Immunoassay Less than 50 ug/g.........Normal 50-120 ug/g...............Borderline elevated, test should be re-evaluated in 4-6 weeks. 121 ug/g or greater.......Elevated Performed By: [facility] [address] [place] [address] Adobe Layer Helper: Moisés Moreau MD, PhD Performed By: #### L [id number] #### [facility] ([facility]) [address] [place] [address] CBC WITH AUTO DIFFERENTIALon 05-31-2023 Basophils (Bld) [#/Vol] 0.06 10*3/uL Normal 0.00-0.20 [facility] Comment on above: Performed By: #### L [id number] #### [facility] ([facility]) [address] [place] [address] Basophils/100 WBC (Bld) 0.9 % Normal 0.0-1.0 [facility] Comment on above: Performed By: #### L [id number] #### [facility] ([facility]) [address] [place] [address] Eosinophils (Bld) [#/Vol] 0.09 10*3/uL Normal 0.00-0.50 [facility] Comment on above: Performed By: #### L [id number] #### [facility] ([facility]) [address] [place] [address] Eosinophils/100 WBC (Bld) 1.4 % Normal 0.0-6.0 [facility] Comment on above: Performed By: #### L [id number] #### [facility] ([facility]) [address] [place] [address] Erythrocyte distribution width (RBC) [Ratio] 12.7 % Normal 11.5-15.0 [facility] Comment on above: Performed By: #### L [id number] #### [facility] ([facility]) [address] [place] [address] ERYTHROCYTE MEAN CORPUSCULAR HEMOGLOBIN CONCENTRATION (G/DL) BY AUTOMATED 32.2 g/dL Normal 32.0-35.0 [facility] Comment on above: Performed By: #### L [id number] #### [facility] ([facility]) [address] [place] [address] Hematocrit (Bld) [Volume fraction] 37.9 % Normal 36.0-48.0 [facility] Comment on above: Performed By: #### L [id number] #### [facility] ([facility]) [address] [place] [address] Hemoglobin (Bld) [Mass/Vol] 12.2 g/dL Normal 12.0-15.0 [facility] Comment on above: Performed By: #### L [id number] #### [facility] [address] [place] [address] Immature granulocytes (Bld) [#/Vol] 0.02 10*3/uL Normal 0.00-0.20 [facility] Comment on above: Performed By: #### L [id number] #### [facility] ([facility]) [address] [place] [address] Immature granulocytes/100 WBC (Bld) 0.3 % Normal 0.0-1.0 [facility] Comment on above: Performed By: #### L [id number] #### [facility] ([facility]) [address] [place] [address] Lymphocytes (Bld) [#/Vol] 2.04 10*3/uL Normal 1.20-4.00 [facility] Comment on above: Performed By: #### L [id number] #### [facility] ([facility]) [address] [place] [address] Lymphocytes/100 WBC (Bld) 31.9 % Normal 20.0-45.0 [facility] Comment on above: Performed By: #### L [id number] #### [facility] ([facility]) [address] [place] [address] MCH (RBC) [Entitic mass] 27.0 pg Normal 27.0-33.0 [facility] Comment on above: Performed By: #### L [id number] #### [facility] ([facility]) [address] [place] [address] MCV (RBC) [Entitic vol] 83.8 fL Normal 82.0-98.0 [facility] Comment on above: Performed By: #### L [id number] #### [facility] ([facility]) [address] [place] [address] Monocytes (Bld) [#/Vol] 0.35 10*3/uL Normal 0.10-1.00 [facility] Comment on above: Performed By: #### L [id number] #### [facility] [address] [place] [address] Monocytes/100 WBC (Bld) 5.5 % Normal 5.0-12.0 [facility] Comment on above: Performed By: #### L [id number] #### [facility] ([facility]) [address] [place] [address] Neutrophils (Bld) [#/Vol] 3.83 10*3/uL Normal 1.60-7.60 [facility] Comment on above: Performed By: #### L [id number] #### [facility] ([facility]) [address] [place] [address] Neutrophils/100 WBC (Bld) 60.0 % Normal 40.0-72.0 [facility] Comment on above: Performed By: #### L [id number] #### [facility] ([facility]) [address] [place] [address] NRBC (PER 100 WBCS) BY AUTOMATED COUNT 0.0 % Normal 0 [facility] Comment on above: Performed By: #### L [id number] #### [facility] ([facility]) [address] [place] [address] PLATELETS (10*3/UL) IN BLOOD AUTOMATED COUNT 485 10*3/uL High 150-400 [facility] Comment on above: Performed By: #### L [id number] #### [facility] ([facility]) [address] [place] [address] RBC (Bld) [#/Vol] 4.52 10*6/uL Normal 3.80-5.00 [facility] Comment on above: Performed By: #### L [id number] #### [facility] ([facility]) [address] [place] [address] WBC (Bld) [#/Vol] 6.39 10*3/uL Normal 4.00-10.60 [facility] Comment on above: Performed By: #### L [id number] #### [facility] ([facility]) [address] [place] [address] ENTERIC BACTERIA, LIMITED PA RASITE DNA PANELon 05-31-2023 CAMPYLOBACTER SPECIES Negative Normal Negative [facility] Comment on above: Order Comment: [...] the amplified DNA. Performed By: #### L [id number] ####[facility] (BEAKER)[address] [place] [address] CRYPTOSPORIDIUM (HOMINIS AND PARVUM) Negative Normal Negative [facility] Comment on above: Order Comment: Testi [...] the amplified DNA. Performed By: #### L [id number] ####[facility] ([facility])[address] [place] [address] ENTAMOEBA HISTOLYTICA Negative Normal Negative [facility] Comment on above: Order Comment: Testi ng [...] the amplified DNA. Performed By: #### L [id number] ####[facility] (BEAKER)[address] [place] [address] ENTEROTOXIGENIC E. COLI (ETEC) LT/ST Negative Normal Negative [facility] Comment on above: Order Comment: Testi [...] the amplified DNA. Performed By: #### L [id number] ####[facility] (BEAKER)[address] [place] [address] GIARDIA LAMBLIA Negative Normal Negative [facility] Comment on above: Order Comment: [...] the amplified DNA. Performed By: #### L [id number] ####[facility] (BEAKER)[address] [place] [address] PLESIOMONAS SHIGELLOIDES Negative Normal Negative [facility] Comment on above: Order Comment: Testi [...] the amplified DNA. Performed By: #### L [id number] ####[facility] (BEAKER)[address] [place] [address] SALMONELLA SPECIES Negative Normal Negative [facility] Comment on above: Order Comment: Testi [...] the amplified DNA. Performed By: #### L [id number] ####[facility] (BEAKER)[address] [place] [address] SHIGA-LIKE TOXIN-PRODUCING E. COLI (STEC) STX1/STX2 Negative Normal Negative [facility] Comment on above: Order Comment: Testi [...] the amplified DNA. Performed By: #### L [id number] ####[facility] (BEAKER)[address] [place] [address] SHIGELLA SPECIES Negative Normal Negative [facility] Comment on above: Order Comment: [...] the amplified DNA. Performed By: #### L [id number] ####[facility] (BEAKER)[address] [place] [address] VIBRIO SPECIES Negative Normal Negative [facility] Comment on above: Order Comment: Testi [...] the amplified DNA. Performed By: #### L [id number] ####[facility] (AKER)[address] [place] [address] YERSINIA ENTEROCOLITICA Negative Normal Negative [facility] Comment on above: Order Comment: Testi [...] the amplified DNA. Performed By: #### L [id number] ####[facility] (BEAKER)[address] [place] [address] IGAon 05-31-2023 Magnesium [Mass/Vol] 265 mg/dL Normal 60-413 [facility] Comment on above: Performed By: #### L [id number] #### [facility] (BEAKER) [address] [place] [address] Labon 05-31-2023 Lab [id number] Darrian Leal 1970 F Date Provider Department Center 05/31/2023 2244-[facility] MP LAB RESOURCE MP DRAW Medical Pavi No family history on file Normal [facility] Office Visiton 05-31-2023 Follow-up visit [id number] Darrian Leal en 1970 F Date Provider Department Center 05/31/2023 [facility] MP GI Medical Pavi No family history on file Level of Service:73503 OR OFFICE/OUTPATIENT NEW MODERATE MDM 45-59 MINUTES Reason for Visit and Comments: Nausea [70] GERD [559476] Abdominal Pain [727412] New Patient [632] Normal [facility] PANCREATIC ELASTASE, FECALon 05-31-2023 PANCREATIC ELASTASE, FECAL 700 ug/g Normal >=100 [facility] Comment on above: Result Comment: REFE RENCE INTERVAL: Pancreatic Elastase Fecal by Immunoassay Less than 100 ug/g............Severe insufficiency 100 - 199 ug/g................Moderate insufficiency 200 ug/g or greater...........Normal INTERPRETIVE INFORMATION: Pancreatic Elastase Fecal by Immunoassay Reference intervals do not apply for infants less than one month old. Performed by [facility], [address] [place] [address] [email or web address], Moisés Moreau MD, PHD, Lab. Director Performed By: #### L [id number] #### [facility] [address] [place] [address] SEDIMENTATION RATEon 023 SEDIMENTATION RATE, ERYTHROCYTE 13 mm/hr Normal <=20 [facility] Comment on above: Performed By: #### L [id number] #### [facility] (BEAKER) [address] [place] [address] TISSUE TRANSGLUTAMINASE, IGA on 05-31-2023 TISSUE TRANSGLUTAMINASE, IGA <2 Normal 0-3 [facility] Comment on above: Result Comment: INTE [...] positive predictive value for disease. Performed By: [facility] [address] [place] [address] [employer] Layer Helper: Moisés Moreau MD, PhD Performed By: #### L [id number] #### [facility] (BEAKER) [address] [place] [address] Refillon 05-27-2023 Refill [id number] ElvisDenverist en 1970 F Date Provider Department [place] 05/27/2023 GIANA JAMES [facility] Gerardo Heal No family history on file Reason for Visit and Comments: Med Refill [[id number]] Normal [facility] Behavioral Health Telemedici neon 05-22-2023 Behavioral Health Telemedicine [id number] Denver Lealisten 1970 F Date Provider Department [place] 05/22/202321832-WMCVRADHA CASTREJON [facility] Gerardo Heal No family history on file Reason for Visit and Comments: Anxiety [9] Pain [136] Normal [facility] Orders Onlyon 05-18-2023 Orders Only [id number] Denver Lealist en 1970 Provider Department [place] 05/18/2023 GIANA JAMES [facility] Gerardo Heal No family history on file Normal [facility] Behavioral Health Telemedici neon 05-17-2023 Behavioral Health Telemedicine [id number] ElvisMary 1970 F Date Provider Department [place] 05/17/2023 GIANA JAMES [facility] Gerardo Heal No family history on file Level of Service:78385 OR OFFICE/OUTPATIENT ESTABLISHED MOD MDM 30-39 MIN Reason for Visit and Comments: Telehealth Audio/video Visit [871] Normal [facility] Behavioral Health Telemedicine [id number] Denver Lealisten 1970 F Date Provider Department [place] 05/17/202319758-NISSRADHA STARK [facility] Gerardo Heal No family history on file Reason for Visit and Comments: Anxiety [9] MDD (Major Depressive Disorder) [401] Normal [facility] Behavioral Health Telemedici neon 04-17-2023 Behavioral Health Telemedicine [id number] ElvisMary 1970 Provider Department [place] 04/17/2023 [facility] No family history on file Reason for Visit and Comments: Therapy [849] Telehealth Audio/video Visit [871] - Via [facility] Documentationon 04-14-2023 Documentation [id number] ElvisDarrian 1970 Provider Department [place] 04/14/2023 [facility] No family history on file Reason for Visit and Comments: Transfer summary [Other] - Transferring therapy services [facility] Behavioral Health Telemedici neon 04-10-2023 Behavioral Health Telemedicine [id number] Mary Leal 1970 Provider Department [place] 04/10/2023 CARMEN CHRISTIANSON [facility] No family history on file Reason for Visit and Comments: Therapy [849] Normal [facility] CBC AUTO DIFFon 04-05-2023 BASO # 0.0 103/ul Normal 0.0-0.1 [facility] Comment on above: Performed By: #### L ACT #### [facility] [address] [place] [address] Dr. Mirian Velasco Basophils/100 WBC (Bld) 0.8 % Normal 0.2-2.0 [facility] Comment on above: Performed By: #### L ACT #### [facility] [address] [address] [address] Mirian Velasco EO # 0.1 103/ul Normal 0.0-0.7 [facility] Comment on above: Performed By: #### L ACT #### [facility] [address] [place] [address] Dr. Mirian Velasco Eosinophils/100 WBC (Bld) 1.1 % Normal 0.9-7.0 [facility] Comment on above: Performed By: #### L ACT #### [facility] [address] [place] [address] Dr. Mirian Velasco Erythrocyte distribution width (RBC) [Ratio] 13.1 % Normal 11.0-15.0 [facility] Comment on above: Performed By: #### L ACT #### [facility] [address] [place] [address] Dr. Mirian Velasco Hematocrit (Bld) [Volume fraction] 37.6 % Normal 36.0-48.0 [facility] Comment on above: Performed By: #### L ACT #### [facility] [address] [place] [address] Dr. Mirian Velasco Hemoglobin (Bld) [Mass/Vol] 12.4 g/dL Normal 12.0-16.0 [facility] Comment on above: Performed By: #### L ACT #### [facility] [address] [place] [address] Dr. Mirian Velasco IG # 0.01 10e3/ul Normal 0.00-0.03 [facility] Comment on above: Performed By: #### L ACT #### [facility] [address] [place] [address] Dr. Mirian Velasco IG % 0.2 % Normal 0.0-0.5 [facility] Comment on above: Performed By: #### L ACT #### [facility] [address] [place] [address] Dr. Mirian Velasco LYMPH # 2.5 103/ul Normal 1.2-3.8 [facility] Comment on above: Performed By: #### L ACT #### [facility] [address] [place] [address] Dr. Mirian Velasco Lymphocytes/100 WBC (Bld) 46.2 % Normal 20.5-60.0 [facility] Comment on above: Performed By: #### L ACT #### [facility] [address] [place] [address] Dr. Mirian Velasco MANUAL DIFF REQ NO Normal [facility] Comment on above: Performed By: #### L ACT #### [facility] [address] [place], [place] [id number] Dr. Mirian Velasco MCH (RBC) [Entitic mass] 27.1 pg Normal 26.7-34.0 [facility] Comment on above: Performed By: #### L ACT #### [facility] [address] [place] [address] Dr. Mirian Velasco MCHC (RBC) [Mass/Vol] 33.0 g/dL Normal 29.9-35.2 [facility] Comment on above: Performed By: #### L ACT #### [facility] [address] [place] [address] Dr. Mirian Velasco MCV (RBC) [Entitic vol] 82.3 fL Normal 81.0-99.0 [facility] Comment on above: Performed By: #### L ACT #### [facility] [address] [place] [address] Dr. Mirian Velasco MONO # 0.4 103/ul Normal 0.3-0.8 [facility] Comment on above: Performed By: #### L ACT #### [facility] [address] [place] [address] Dr. Mirian Velasco Monocytes/100 WBC (Bld) 7.9 % Normal 1.7-12.0 [facility] Comment on above: Performed By: #### L ACT #### [facility] [address] [place] [address] Dr. Mirian Velasco NEUT # 2.3 103/ul Normal 1.4-6.5 [facility] Comment on above: Performed By: #### L ACT #### [facility] [address] [place] [address] Dr. Mirian Velasco Neutrophils/100 WBC (Bld) 43.8 % Normal 43.0-75.0 [facility] Comment on above: Performed By: #### L ACT #### [facility] [address] [place] [address] Dr. Mirian Velasco Platelet mean volume (Bld) [Entitic vol] 9.2 fL Critically low 9.5-13.5 [facility] Comment on above: Performed By: #### L ACT #### [facility] [address] [address] [address] Mirian Velasco PLT 318 103/ul Normal 150-450 [facility] Comment on above: Performed By: #### L ACT #### [facility] [address] [address] [address] Mirian Velasco RBC 4.57 106/ul Normal 4.20-5.40 [facility] Comment on above: Performed By: #### L ACT #### [facility] [address] [address] [address] Mirian Velasco WBC 5.3 103/ul Normal 4.0-11.0 [facility] Comment on above: Performed By: #### L ACT #### [facility] [address] [address] [address] Mirian Velasco PROF CHEM 8 (BAS METB)on Anion gap [Moles/Vol] 19.0 mmol/L Normal [facility] Comment on above: Performed By: #### H FAUSTO, BMP ####[facility] [address] [address]DrReno Velasco Calcium [Mass/Vol] 9.6 mg/dL Normal 8.5-10.1 [facility] Comment on above: Performed By: #### Sukumar LAMBERT, BMP ####[facility] [address] [address]DrReno Velasco Chloride [Moles/Vol] 103 mmol/L Normal 98-107 [facility] Comment on above: Performed By: #### H FAUSTO, BMP ####[facility] [address] [address]DrReno Velasco CO2 [Moles/Vol] 23.1 mmol/L Normal 21.0-32.0 [facility] Comment on above: Performed By: #### H FAUSTO, BMP ####[facility] [address] [address]DrReno Velasco Creatinine [Mass/Vol] 0.84 mg/dL Normal 0.55-1.02 [facility] Comment on above: Performed By: #### H FAUSTO, BMP ####[facility] [address] [id number]. Mirian Velasco EGFR-AF LATVIAN >60 Normal >=60 [facility] Comment on above: Performed By: #### H FAUSTO, BMP ####[facility] [address] [id number]. Mirian Velasco EGFR-NON AF LATVIAN >60 Normal >=60 [facility] Comment on above: Performed By: #### H FAUSTO, BMP ####[facility] [address] [id number]. Mirian Velasco Glucose [Mass/Vol] 129 mg/dL Critically high 74-106 [facility] Comment on above: Performed By: #### H FAUSTO, BMP ####[facility] [address] [address]Dr. Mirian Velasco Potassium [Moles/Vol] 3.1 mmol/L Critically low 3.5-5.1 [facility] Comment on above: Performed By: #### H FAUSTO, BMP ####[facility] [address] [address]Dr. Mirian Velasco Sodium [Moles/Vol] 142 mmol/L Normal 136-145 [facility] Comment on above: Performed By: #### H FAUSTO, BMP ####[facility] [address] [address]Dr. Mirian Velasco Urea nitrogen [Mass/Vol] 12.0 mg/dL Normal 7.0-18.0 [facility] Comment on above: Performed By: #### H FAUSTO, BMP ####[facility] [address] [id number]. Mirian Velasco Urea nitrogen/Creatinine [Mass ratio] 14.3 mg/mg Normal [facility] Comment on above: Performed By: #### H FAUSTO, BMP ####[facility] [address] [address]Dr. Mirian Velasco TROPONIN, HIGH SENSITIVITYon 04-05-2023 HSTROP 5.6 pg/mL Normal 4.0-51.3 [facility] Comment on above: Result Comment: CUT- OFF POINTS HAVE BEEN ESTABLISHED BASED ON THE FOURTH UNIVERSAL DEFINITIONS OF MYOCARDIAL INFARCTION. THE UPPER REFERENCE LIMIT (URL) OF TROPONIN, DEFINED THE 99TH PERCENTILE OF cTnI DISTRIBUTION IN A REFERENCE POPULATION, HAS BEEN CONFIRMED THE DECISION THRESHOLD FOR [place] DIAGNOSIS. Performed By: #### H FAUSTO, BMP ####[facility] [address] [place], [place] [address]Br. Mirian Velasco Refillon 03-21-2023 Refill [id number] Darrian Leal en 1970 F Date Provider Department Center 03/21/2023 167GIANA JARQUIN [facility] Gerardo Heal No family history on file Reason for Visit and Comments: Med Refill [[id number]] Normal [facility] Behavioral Health Telemedici neon 03-20-2023 Behavioral Health Telemedicine [id number] Darrian Lealen 1970 F Date Provider Department Center 03/20/2023 3941CARMEN GALINDO [facility] BH Gerardo Heal No family history on file Reason for Visit and Comments: Therapy [849] Normal [facility] FAT, FECAL QUALon 03-16-2023 FAT, FECAL - NEUTRAL Normal Normal Normal [facility] Comment on above: Order Comment: Speci men Type: STOOL SPECIMENOrdering Facility: [facility] Address: [address] [place] [address] Performed By: #### F FATQL ####[facility] [id number] [place] [address] FAT, FECAL - SPLIT Normal Normal Normal [facility] Comment on above: Order Comment: Speci men Type: STOOL SPECIMENOrdering Facility: [facility] Address: [address] [address] Result Comment: INTE RPRETIVE INFORMATION: Fecal Fat Qualitative Neutral fats include the monoglycerides, diglycerides, and triglycerides while split fats are the free fatty acids that are liberated from them. Impaired synthesis or secretion of pancreatic enzymes or bile may cause an increase in neutral fats while an increase in split fats suggests impaired absorption of nutrients. Performed By: [facility] [address] [place] [address] Adobe Layer Helper: Moisés Moreau MD, PhD Performed By: #### F FATQL ####[facility] [id number] [place] [address] Behavioral Health Telemedici beyer 03-06-2023 Behavior[facility] Telemedicine [id number] Mary Leal 1970 F Date Provider Department [place] 03/06/2023 Yohana-CARMEN DORSEY [facility] Gerardo Heal No family history on file Reason for Visit and Comments: Therapy [849] Normal [facility] CBC AUTO DIFFon 03-06-2023 BASO # 0.1 103/ul Normal 0.0-0.1 [facility] Comment on above: Performed By: #### L ACT #### [facility] [address] [place] [address] Dr. Mirian Velasco Basophils/100 WBC (Bld) 0.8 % Normal 0.2-2.0 [facility] Comment on above: Performed By: #### L ACT #### [facility] [address] [address] [address] Mirian Velasco EO # 0.1 103/ul Normal 0.0-0.7 [facility] Comment on above: Performed By: #### L ACT #### [facility] [address] [place] [address] Dr. Mirian Velasco Eosinophils/100 WBC (Bld) 1.4 % Normal 0.9-7.0 [facility] Comment on above: Performed By: #### L ACT #### [facility] [address] [place] [address] Dr. Mirian Velasco Erythrocyte distribution width (RBC) [Ratio] 13.1 % Normal 11.0-15.0 [facility] Comment on above: Performed By: #### L ACT #### [facility] [address] [address] [address] Mirian Velasco Hematocrit (Bld) [Volume fraction] 37.9 % Normal 36.0-48.0 [facility] Comment on above: Performed By: #### L ACT #### [facility] [address] [place] [address] Dr. Mirian Velasco Hemoglobin (Bld) [Mass/Vol] 12.7 g/dL Normal 12.0-16.0 [facility] Comment on above: Performed By: #### L ACT #### [facility] [address] [place] [address] Dr. Mirian Velasco IG # 0.01 10e3/ul Normal 0.00-0.03 [facility] Comment on above: Performed By: #### L ACT #### [facility] [address] [place] [address] Dr. Mirian Velasco IG % 0.2 % Normal 0.0-0.5 [facility] Comment on above: Performed By: #### L ACT #### [facility] [address] [place] [address] Dr. Mirian Velasco LYMPH # 1.8 103/ul Normal 1.2-3.8 [facility] Comment on above: Performed By: #### L ACT #### [facility] [address] [place] [address] Dr. Mirian Velasco Lymphocytes/100 WBC (Bld) 27.2 % Normal 20.5-60.0 [facility] Comment on above: Performed By: #### L ACT #### [facility] [address] [place] [address] Dr. Mirian Velasco MANUAL DIFF REQ NO Normal [facility] Comment on above: Performed By: #### L ACT #### [facility] [address] [place] [address] Dr. Mirian Velasco MCH (RBC) [Entitic mass] 27.5 pg Normal 26.7-34.0 [facility] Comment on above: Performed By: #### L ACT #### [facility] [address] [place] [address] Dr. Mirian Velasco MCHC (RBC) [Mass/Vol] 33.5 g/dL Normal 29.9-35.2 [facility] Comment on above: Performed By: #### L ACT #### [facility] [address] [place] [address] Dr. Mirian Velasco MCV (RBC) [Entitic vol] 82.0 fL Normal 81.0-99.0 [facility] Comment on above: Performed By: #### L ACT #### [facility] [address] [place] [address] Dr. Mirian Velasco MONO # 0.4 103/ul Normal 0.3-0.8 [facility] Comment on above: Performed By: #### L ACT #### [facility] [address] [place] [address] Dr. Mirian Velasco Monocytes/100 WBC (Bld) 5.5 % Normal 1.7-12.0 [facility] Comment on above: Performed By: #### L ACT #### [facility] [address] [place] [address] Dr. Mirian Velasco NEUT # 4.3 103/ul Normal 1.4-6.5 [facility] Comment on above: Performed By: #### L ACT #### [facility] [address] [place] [address] Dr. Mirian Velasco Neutrophils/100 WBC (Bld) 64.9 % Normal 43.0-75.0 [facility] Comment on above: Performed By: #### L ACT #### [facility] [address] [place] [address] Dr. Mirian Velasco Platelet mean volume (Bld) [Entitic vol] 9.4 fL Critically low 9.5-13.5 [facility] Comment on above: Performed By: #### L ACT #### [facility] [address] [place] [address] Dr. Mirian Velasco PLT 317 103/ul Normal 150-450 [facility] Comment on above: Performed By: #### L ACT #### [facility] [address] [place] [address] Dr. Mirian Velasco RBC 4.62 106/ul Normal 4.20-5.40 [facility] Comment on above: Performed By: #### L ACT #### [facility] [address] [place] [address] Dr. Mirian Velasco WBC 6.6 103/ul Normal 4.0-11.0 [facility] Comment on above: Performed By: #### L ACT #### [facility] [address] [address] [address] Mirian Velasco CULTURE BLOODon 03-06-2023 Microscopic examination of blood, culture Culture Observations: NO GROWTH AT 5 DAYS. Normal [facility] Comment on above: Performed By: #### B LDCX2 ####[facility] [address] [address]Dr. Mirian Velasco Microscopic examination of blood, culture Culture Observations: NO GROWTH AT 5 DAYS. Normal [facility] Comment on above: Performed By: #### B LDCX1 #### [facility] [address] [address] [address] Mirian Velasco LACTATE/LACTIC ACIDon 2022 Lactate [Moles/Vol] 2.2 mmol/L Critically high 0.4-2.0 [facility] Comment on above: Performed By: #### L ACT #### [facility] [facility] [address] [place] [address] Dr. Mirian Velasco LIPASEon 03-06-2023 Lipase [Catalytic activity/Vol] 53.0 U/L Critically low 73.0-393.0 [facility] Comment on above: Performed By: #### L ACT #### [facility] [address] [place] [address] Dr. Mirian Velasco PROF 14(COMP METB)on 023 Albumin [Mass/Vol] 3.4 g/dL Normal 3.4-5.0 [facility] Comment on above: Performed By: #### L ACT #### [facility] [address] [address] [address] Mirian Velasco Albumin/Globulin [Mass ratio] 1.0 {ratio} Normal [facility] Comment on above: Performed By: #### L ACT #### [facility] [address] [address] [address] Mirian Velasco ALP [Catalytic activity/Vol] 123 U/L Critically high 46-116 [facility] Comment on above: Performed By: #### L ACT #### [facility] [address] [address] [address] Mirian Velasco ALT [Catalytic activity/Vol] 33 U/L Normal 14-59 [facility] Comment on above: Performed By: #### L ACT #### [facility] [address] [place] [address] Dr. Mirian Velasco Anion gap [Moles/Vol] 13.1 mmol/L Normal [facility] Comment on above: Performed By: #### L ACT #### [facility] [address] [address] [address] Mirian Velasco AST [Catalytic activity/Vol] 31 U/L Normal 15-37 [facility] Comment on above: Performed By: #### L ACT #### [facility] [address] [place] [address] Dr. Mirian Velasco Bilirubin [Mass/Vol] 0.3 mg/dL Normal 0.2-1.0 [facility] Comment on above: Performed By: #### L ACT #### [facility] [address] [place] [address] Dr. Mirian Velasco Calcium [Mass/Vol] 8.9 mg/dL Normal 8.5-10.1 [facility] Comment on above: Performed By: #### L ACT #### [facility] [address] [place] [address] Dr. Mirian Velasco Chloride [Moles/Vol] 107 mmol/L Normal 98-107 [facility] Comment on above: Performed By: #### L ACT #### [facility] [address] [address] [address] Mirian Velasco CO2 [Moles/Vol] 25.6 mmol/L Normal 21.0-32.0 [facility] Comment on above: Performed By: #### L ACT #### [facility] [address] [place] [address] Dr. Mirian Velasco Creatinine [Mass/Vol] 0.70 mg/dL Normal 0.55-1.02 [facility] Comment on above: Performed By: #### L ACT #### [facility] [address] [place] [address] Dr. Mirian Velasco EGFR-AF LATVIAN >60 Normal >=60 [facility] Comment on above: Performed By: #### L ACT #### [facility] [address] [address] [address] Mirian Velasco EGFR-NON AF LATVIAN >60 Normal >=60 [facility] Comment on above: Performed By: #### L ACT #### [facility] [address] [address] [address] Mirian Velasco Globulin (S) [Mass/Vol] 3.4 g/dL Normal [facility] Comment on above: Performed By: #### L ACT #### [facility] [address] [address] [address] Mirian Velasco Glucose [Mass/Vol] 125 mg/dL Critically high 74-106 [facility] Comment on above: Performed By: #### L ACT #### [facility] [address] [address] [address] Mirian Velasco Potassium [Moles/Vol] 3.7 mmol/L Normal 3.5-5.1 [facility] Comment on above: Performed By: #### L ACT #### [facility] [address] [address] [address] Mirian Velasco Protein [Mass/Vol] 6.8 g/dL Normal 6.4-8.2 [facility] Comment on above: Performed By: #### L ACT #### [facility] [address] [address] [address] Mirian Velasco Sodium [Moles/Vol] 142 mmol/L Normal 136-145 [facility] Comment on above: Performed By: #### L ACT #### [facility] [address] [address] [address] Mirian Velasco Urea nitrogen [Mass/Vol] 16.0 mg/dL Normal 7.0-18.0 [facility] Comment on above: Performed By: #### L ACT #### [facility] [address] [address] [address] Mirian Velasco Urea nitrogen/Creatinine [Mass ratio] 22.9 mg/mg Normal [facility] Comment on above: Performed By: #### L ACT #### [facility] [address] [address] [address] Mirian Velasco PROTIMEon 03-06-2023 INR Coag (PPP) [Relative time] {INR} Normal [facility] Comment on above: Performed By: #### P T #### [facility] [address] [address] [address] Mirian Velasco INR GUIDELINES SEE BELOW Normal [facility] Comment on above: Result Comment: SAMEER RED INR: 2.0 - 3.0 CONDITIONS NOT LISTED BELOW 2.5 - 3.5 FOR PROSTHETIC HEART VALVE REPLACEMENT 2.5 - 3.5 RECURRENT THROMBOSIS Performed By: #### P T #### [facility] [address] [address] [address] Mirian Velasco PT Coag (PPP) [Time] 9.8 s Normal 9.0-11.6 [facility] Comment on above: Performed By: #### P T #### [facility] [address] [address] [address] Mirian Velasco TROPONIN, HIGH SENSITIVITYon 03-06-2023 HSTROP 4.4 pg/mL Normal 4.0-51.3 [facility] Comment on above: Result Comment: CUT- OFF POINTS HAVE BEEN ESTABLISHED BASED ON THE FOURTH UNIVERSAL DEFINITIONS OF MYOCARDIAL INFARCTION. THE UPPER REFERENCE LIMIT (URL) OF TROPONIN, DEFINED THE 99TH PERCENTILE OF cTnI DISTRIBUTION IN A REFERENCE POPULATION, HAS BEEN CONFIRMED THE DECISION THRESHOLD FOR [place] DIAGNOSIS. Performed By: #### L ACT #### [facility] [address] [address] [address] Mirian Velasco Bacteria identified Aer cx N om (Unsp spec)Ordered By: Niecy Duron on 03-02-2023 Superficial Wound Culture Methicillin Resis Staph Aureus [facility] Superficial Wound Cultureon 03-02-2023 Superficial Wound Culture [...] RESISTANT TO ALL B-LACTAM DRUGS. PERFORMED BY: [place] [address] PATHOLOGIST MOUNTER SOUSAPHONES LEVAR CASE M.D. [facility] Comment on above: Performed By: #### T 4T, ESR, URIC, CRP, TSH3 #### [facility] [address] [place] [address] [place] #### RA, CHUYITA #### [facility] , Clinical Supporton 3 Clinical Support [id number] Darrian Leal 1970 Date Provider Department [place] 02/27/2023 [facility] Gerardo [facility] No family history on file Reason for Visit and Comments: Therapy [849] [facility] 36on 02-20-2023 36 I just sent the scri pt over and signed her note. [facility] Telemedici neon 02-20-2023 Behavioral Health Telemedicine [id number] Mary Leal 1970 Date Provider Department [place] 02/20/2023 [facility] Gerardo Pool No family history on file Reason for Visit and Comments: Therapy [849] [facility] CT LSPINE WO CONon 3 CT [...] by: NANCY BELLE Date: 2023-02-19 06:42 Normal [facility] 36on 02-17-2023 36 Rn Rehab spoke with rigoberto montemayor in regards to lunesta, patient reports Giana was increasing the lunesta to 3mg, underwriter solicitation director read last note plan reports 2mg lunesta. Rn Rehab will attempt to contact Giana Morales. Rn Rehab is covering while Giana is out of the clinic. Normal [facility] 36 Patient needs Lunest a sent to [facility] in [place]. Had an appt yesterday with you, and pharmacy does not have. Normal [facility] Telephoneon 02-17-2023 Telephone [id number] Darrian Leal 1970 F Date Provider Department Center 02/17/2023 POCNE MCKEON [facility] Gerardo Heal No family history on file Normal [facility] Telephone [id number] Darrian Leal 1970 F Date Provider Department [place] 02/17/2023 GIANA JAMES [facility] Gerardo Heal No family history on file Reason for Visit and Comments: Medication Question [827] - Pt is upset that her Lunesta has not been increased as discussed. Normal [facility] Behavioral Health Telemedici neon 02-16-2023 [facility] Telemedicine [id number] Mary Leal 1970 F Date Provider Department [place] 02/16/2023 GIANA JAMES [facility] Gerardo Heal No family history on file Level of Service:20781 OR OFFICE/OUTPATIENT ESTABLISHED MOD [facility] 30-39 MIN Reason for Visit and Comments: Telehealth Audio/video Visit [871] - [email or web address] [facility]al [facility] Telemedici neon 02-13-2023 Behavioral Health Telemedicine [id number] Mary Leal 1970 Date Provider Department Center 02/13/2023 [facility] Gerardo [facility] No family history on file Reason for Visit and Comments: Therapy [849] - [facility] Telemedici neon 02-06-2023 [facility] Telemedicine [id number] Mary Leal 1970 Date Provider Department Center 02/06/2023 CARMEN [facility]IAN[facility] Gerardo [facility] No family history on file Reason for Visit and Comments: Therapy [849] [facility] Telemedici neon 02-02-2023 [facility] Telemedicine [id number] Mary Leal 1970 Provider Department Center 02/02/2023 GIANA JAMES [facility] Gerardo [facility] No family history on file Level of Service:02674 OR OFFICE/OUTPATIENT ESTABLISHED MOD MDM 30-39 MIN Reason for Visit and Comments: Telehealth Audio/video Visit [871] - [email or web address] [facility] Telemedici neon 01-23-2023 [facility] Telemedicine [id number] Mary Leal 1970 Provider Department Center 01/23/2023 [facility] Gerardo [facility] No family history on file Reason for Visit and Comments: Therapy [849] [facility] 36on 01-16-2023 36 Spoke with pt to raymond mcgill her appointment this morning was cancelled per her request. Pt stated she wasn't feeling well. Her next appointment is scheduled for 01/23/23. [facility] 36 Patient called and w ants a return call from provider. [facility] Hussain 01-16-2023 MARIAN Telephone (BHAVIN) ----- MARY LEAL ([id number]) 1970 F Date Time Provider Department 01/16/23 MOUNIKA HERNANDEZ During your visit today, we recorded the following information about you: Mounika Hernandez PA-C 01/16/2023 1:09 PM Signed Patient was scheduled for virtual PACC appt at 1300 today. Patient did not check in for visit. Called patient at [phone] to see if they needed any assistance [...] the AM and 4 mg PM - gipffamgctr-ngmkwhuln-qcp anter (TRELEGY ELLIPTA) 100-62.5-25 mcg Inhale 1 [...] Status:Closed by MOUNIKA HERNANDEZ on 01/16/23 Normal [facility] HISTORY PHYSICALon HISTORY PHYSICAL HNO ID: [id number] Author: Mounika Hernandez PA-C Service: ? Author Type: Physician Relay Motorman Type: HANDP Filed: 01/16/2023 1:24 PM Note Text: This is a virtual visit using [employer] video visit. It required patient-provider interaction for the medical decision making as documented below. I have communicated my name and active licensure. The patient's identity and physical location were verified at the time of this visit. Either the patient or their legal community health representative has been informed of the risks and benefits of and alternatives to treatment through a remote evaluation and consents to proceed with the evaluation remotely. Surgeon: Winston Hannah DO Type of surgery: GEN SURG: POP Patient scheduled for surgery on 02/08/23 . Surgery Location: [facility] Diagnosis: Preop examination (primary encounter diagnosis) Nausea [...] in the AM and 4 mg PM toubweajamt-klmcniwyu-blv anter (TRELEGY ELLIPTA) 100-62.5-25 mcg Inhale 1 [...] PA-C January 16, 2023 12:36 PM Normal [facility] Telephoneon 01-16-2023 Telephone [id number] Darrian Leal en 1970 F Date Provider Department Center 01/16/2023 [facility] Gerardo [facility] No family history on file Reason for Visit and Comments: Appointment [375] Normal [facility] Telephone [id number] Darrian Leal en 1970 F Date Provider Department Center 01/16/2023 [facility] Gerardo Heal No family history on file [facility] Hussain 01-11-2023 MARIAN Telephone (GENSSP) ----- MARY LEAL ([id number]) 1970 F Date Time Provider Department 01/11/23 WINSTON HANNAH During your visit today, we recorded the following information about you: Berta Ann RN 01/11/2023 10:08 AM Signed Procedure pended for 02/08/23. Pt aware of need for PACC. Pre-op instructions reviewed, will send to pt's [facility], per pt request. Post op appt scheduled. No other questions at this time. Berta HENSON, RN Specialty Journal Clerk Allergies As of Date: 01/11/2023 Noted Allergy Reaction RISPERIDONE 07/27/2021 5 - Intolerance Comments: Breast discharge Date Reviewed: 12/15/2022 Reviewed by: Mary Obrien MD - Fully Assessed Reason for Visit: Schedule Procedure [Other] Primary Visit Diagnosis:Gastroparesis [K31.84] Order(s):EGD - THERAPEUTIC, EUS, OR TUBE INTERVENTIONS [GI2] Order #: [id number] FUTURE Prescriptions as of 01/11/2023 - sucralfate [...] the AM and 4 mg PM - hutalktjuca-pgcvtdvsb-beo anter (TRELEGY ELLIPTA) 100-62.5-25 mcg Inhale 1 [...] Status:Closed by WINSTON HANNAH on 01/11/23 Normal [facility] Refillon 01-11-2023 Refill [id number] Darrian Leal 1970 Provider Department Center 01/11/2023 GIANA JAMES [facility] Gerardo Heal No family history on file Reason for Visit and Comments: Med Refill [[id number]] Normal [facility] Behavioral Health Telemedici neon 01-06-2023 Behavioral Health Telemedicine [id number] Mary Leal 1970 Provider Department Center 01/06/2023 ANNETTE BRYAN [facility] Gerardo Heal No family history on file Level of Service:29777 OR OFFICE/OUTPATIENT ESTABLISHED LOW MDM 20-29 MIN Reason for Visit and Comments: Telehealth Audio/video Visit [871] Normal [facility] Refillon 01-03-2023 Refill [id number] Darrian Leal en 1970 Date Provider Department Center 01/03/2023 ANNETTE BRYAN [facility] Gerardo Heal No family history on file Reason for Visit and Comments: Med Refill [[id number]] Normal [facility] Behavioral Health Telemedici neon 01-02-2023 Behavioral Health Telemedicine [id number] Mary Leal 1970 F Date Provider Department Center 01/02/2023 3941-CARMEN DORSEY [facility] Gerardo Heal No family history on file Reason for Visit and Comments: Therapy [849] Telehealth Audio/video Visit [871] - WebEx Normal [facility] XR ESOPHAGRAMon 12-26-2022 XR ESOPHAGRAM * [...] the procedure. IMPRESSION: SMALL VOLUME GASTROESOPHAGEAL REFLUX. Web Site Admin: CAPRI Transcribe Date/Time: Dec 26 2022 3:20P Dictated by : MERISSA AGARWAL DO This examination was interpreted and the report reviewed and electronically signed by: TARIQ MILLER MD on Dec 26 2022 3:25PM EST [id number] [facility] Telemedici neon 12-12-2022 Behavioral Health Telemedicine [id number] Mary Leal 1970 F Date Provider Department Center 12/12/2022 KeithMeredithCARMEN GALINDO [facility] Gerardo Heal No family history on file Reason for Visit and Comments: Therapy [849] [facility] Behavioral Health Telemedici neon 12-09-2022 Behavioral Health Telemedicine [id number] Mary Leal 1970 F Date Provider Department Center 12/09/2022 ANNETTE BRYAN [facility] Gerardo Heal No family history on file Level of Service:95356 OR OFFICE/OUTPATIENT ESTABLISHED MOD MDM 30-39 MIN Reason for Visit and Comments: Telehealth Audio/video Visit [441] - [email or web address] [facility] Hussain 12-09-2022 CNPN Telephone ([facility]) ----- MARY LEAL ([id number]) 1970 F Date Time Provider Department 12/09/22 MARY OBRIEN [facility] During your visit today, we recorded the following information about you: Madyson Villanueva Pss 12/09/2022 3:23 PM Signed Patient called and left message regarding post operative 03/2022 total laparoscopic colectomy and concerns regarding symptoms and follow up testing return call to [phone] See Wong RN 12/12/2022 9:[address] Obrien sent my chart message to respond to this phone encounter and previous my chart message. Allergies As of Date: 12/09/2022 Noted Allergy Reaction RISPERIDONE 07/27/2021 5 - Intolerance Comments: Breast discharge Date Reviewed: 12/07/2022 Reviewed by: Marley Mitchell RN - Fully Assessed Reason for Visit: Patient Question [1427] Prescriptions as of 12/12/2022 - sucralfate (CARAFATE) [...] the AM and 4 mg PM - spczhepothw-mvrwoitij-roj anter (TRELEGY ELLIPTA) 100-62.5-25 mcg Inhale 1 [...] Encounter Status:Closed by SEE WONG on 12/12/22 [facility] CNPNon 12-08-2022 CNPN Telephone ([facility]) ----- MARY LEAL ([id number]) 1970 F Date Time Provider Department 12/08/22 [...] patient Summary: As noted Concerns: Procedure results Journal Clerk plan for next outreach: Will follow up Signature Nelsy Pepe RN December 08, 2022 Isra Masters DO 12/09/2022 10:26 AM Signed She has 20-21cm of colon left and based on the smart pill it to 17hrs to get out of that area which would be very delayed so yes it could cause the symptoms. MALAIKA Rosales 12/09/2022 1:32 PM Signed Called patient [...] the AM and 4 mg PM - itdqdxoiyht-walxpvoes-oij anter (TRELEGY ELLIPTA) 100-62.5-25 mcg Inhale 1 [...] Status:Closed by NELSY PEPE on 01/25/23 Normal [facility] NURSING PROGon 12-08-2022 NURSING PROG HNO ID: [id number] Author: Lisa Contreras RN Service: Nursing Author Type: Registered Nurse Type: Nursing Progress Note Filed: 12/08/2022 11:28 AM Note Text: [facility] ENDOSCOPY POST PROCEDURE FOLLOW UP CALL [phone] (home) Date Phone Call Made: 12/08/2022 Attempt: [...] more pleasant? No Lisa Contreras RN Normal [facility] ANES POSTPROC EVALon 023 ANES POSTPROC EVAL HNO ID: [id number] Author: Andres Sheets DO Service: Anesthesiology Author Type: Anesthesiologist Type: Anesthesia Postprocedure Evaluation Filed: 12/07/2022 12:44 PM Note Text: POST ANESTHESIA EVALUATION NOTE : 1970 Procedure Summary Date: 12/07/22 Room / Location: [facility] Anesthesia Start: 1034 Anesthesia Stop: 1055 Procedures: [...] December 07, 2022 TIME: 12:44 PM CSN: [id number] [facility] ANES PRE-OPon 12-07-2022 ANES PRE-OP HNO ID: [id number] Author: Andres Sheets DO Service: Anesthesiology Author Type: Anesthesiologist Type: Anesthesia Preprocedure Evaluation Filed: 12/07/2022 9:42 AM Note Text: ANESTHESIOLOGY DAY OF SURGERY NOTE : 1970 Procedure Information Date/Time: 12/07/22 1030 Scheduled providers: Winston Hannah DO Procedures: EGD - THERAPEUTIC, EUS, OR TUBE INTERVENTIONS PH MONTIEL INSERT OFF MEDS Location: [facility] Estimated body mass index is 24.55 kg/m? [...] and consent discussed: yes. Patient / Responsible Democrat agrees to proceed: yes Patient / Surrogate agrees to blood products: blood products not planned Significant changes in the patient condition since the History and Physical, not otherwise documented in primary service progress note: no. Potential Anesthesia issues that may suggest increased risk of complications or contraindication to planned procedure: none. Vitals Value Taken Time BP 109/74 12/07/22 0920 Pulse 91 12/07/22919 Resp 16 12/07/22919 Temp 36 ?C (96.8 ?F) 12/07/22 09 SpO2 98 % 12/07/22919 Outpatient Medications as [...] the AM and 4 mg PM - xcplhtfejna-yoqwozhng-cus anter (TRELEGY ELLIPTA) 100-62.5-25 mcg Inhale 1 [...] December 07, 2022 TIME: 9:40 AM CSN: [id number] [facility] HISTORY PHYSICALon HISTORY PHYSICAL HNO ID: [id number] Author: Soraida Mathis PA-C Service: Gastroenterology Author Type: Physician Relay Motorman Type: HANDP Filed: 12/07/2022 9:48 AM Note [...] PAIN, N/V/D Medication reconciliation list reviewed in [facility]. Past medical history, past surgical history, social history and family history reviewed and updated in [facility]. ALLERGIES Allergies: Risperidone Intolerance Comment:Breast discharge SEE [facility] BP 109/74 Pulse 91 [...] Leal DATE: 12/07/2022 TIME: 9:41 AM Normal [facility] Upper GI endoscopyon 023 Upper GI endoscopy [facility] Gastrointestinal Endoscopy Patient Name: Mary Leal Procedure [...] by the physician, the nurse and the equipment washer in the pre-procedure area in the endoscopy [...] previously scheduled. Procedure Code(s): --- Professional --- 55565, Esophagogastroduodenoscop y, flexible, transoral; with dilation of gastric/duodenal stricture(s) (eg, balloon, bougie) Diagnosis Code(s): --- Professional --- K21.00, Gastro-esophageal reflux disease with esophagitis, without bleeding K31.84, Gastroparesis CPT copyright 2020 [employer]. All rights reserved. The codes documented in this report are preliminary and upon transportation aid review may be revised to meet current compliance requirements. Attending Participation: I personally performed the entire procedure. Scope In: 10:39:12 AM Scope Out: 10:46:13 AM MD Winston Diaz MD 12/07/2022 10 (more content not included)... Normal [facility] 36on 12-05-2022 36 I called patient jabier mcbride at [phone], she reported to me she stopped Vyvanse 30mg after 2 days due to insomnia. We reviewed her requip dosages, and I asked her to reduce her night dose to 2mg at bedtime and her morning dose to 1mg to prevent overactivation. Normal [facility] ANES POSTPROC EVALon 023 ANES POSTPROC EVAL HNO ID: [id number] Author: Annabel [place] MD Service: Anesthesiology Author Type: Physician Type: Anesthesia Postprocedure Evaluation Filed: 12/05/2022 2:01 PM Note Text: POST ANESTHESIA EVALUATION NOTE : 1970 Procedure Summary Date: 12/05/22 Room / Location: [facility] Anesthesia Start: 900 Anesthesia Stop: 917 Procedure: [...] December 05, 2022 TIME: 2:00 PM CSN: [id number] [facility] ANES PRE-OPon 12-05-2022 ANES PRE-OP HNO ID: [id number] Author: Annabel Burton MD Service: Anesthesiology Author Type: Physician Type: Anesthesia Preprocedure Evaluation Filed: 12/05/2022 8:28 AM Note Text: ANESTHESIOLOGY DAY OF SURGERY NOTE : 1970 Procedure Information Date/Time: 12/05/22 0900 Scheduled providers: Isra Masters DO Procedure: SIGMOIDOSCOPY Location: [facility] Estimated body mass index is 24.55 kg/m? [...] and consent discussed: yes. Patient / Responsible Democrat agrees to proceed: yes Patient / Surrogate [...] the AM and 4 mg PM - rnsfjhmkblo-amrwavsng-egm anter (TRELEGY ELLIPTA) 100-62.5-25 mcg Inhale 1 [...] December 05, 2022 TIME: 8:26 AM CSN: [id number] [facility] Flexible Sigmoidoscopyon Flexible sigmoidoscopy [facility] Gastrointestinal Endoscopy Patient Name: Mary Leal Procedure Date: 12/05/2022 8:55 AM Date of : 1970 Admit Type: Outpatient Age: 52 Room: [address] [address] Gender: Female Note Status: Finalized Attending MD: [...] present medications. Procedure Code(s): --- Professional --- 29030, 52, Sigmoidoscopy, flexible; diagnostic, including collection of specimen(s) by brushing or washing, when performed (separate procedure) Diagnosis Code(s): --- Professional --- K59.00, Constipation, unspecified CPT copyright 2020 [employer]. All rights reserved. The codes documented in this report are preliminary and upon transportation aid review may be revised to meet current compliance requirements. Attending Participation: I personally performed the entire procedure. Scope In: 9:07:04 AM Scope Out: 9:09:45 AM DO Isra Chen DO 12/05/2022 9:13:05 AM This report has been signed electronically by Isra Masters DO Number of Addenda: 0 Note Initiated On: 12/05/2022 8:55 AM Estimated Blood Loss: Estimated blood loss: none. Normal [facility] HISTORY PHYSICALon HISTORY PHYSICAL HNO ID: [id number] Author: Lashanda Dorado PA-C Service: Gastroenterology Author Type: Physician Relay Motorman Type: HANDP Filed: 12/05/2022 8:43 AM Note [...] PAIN, N/V/D Medication reconciliation list reviewed in [facility]. Past medical history, past surgical history, social history and family history reviewed and updated in [facility]. ALLERGIES Allergies: Risperidone Intolerance Comment:Breast discharge SEE [facility] FOR VITALS There were no vitals [...] Leal DATE: 12/05/2022 TIME: 8:42 AM Normal [facility] NURSING PROGon 12-05-2022 NURSING PROG HNO ID: [id number] Author: Lisa Contreras, MAKI Service: ? Author Type: Registered Nurse Type: Nursing Progress Note Filed: 12/05/2022 1:07 PM Note Text: [facility] ENDOSCOPY PRE PROCEDURE CALL Akiko. I'm calling from [facility] endoscopy to provide you with the information for your surgery/procedure tomorrow. Spoke to: Patient CONFIRM Procedure Planned with patient:Esophagogastroduo denoscopy(EGD) with or without biopies based on clinical findings, removal of polyps or lesions Are you familiar with where [facility] is located?yes Address [facility] Patient instructed to enter through the main hospital entrance off [address] at [address] through the revolving doors and check in at the main desk with your route relief driver's license and insurance card. yes When anesthesia or sedation is being given: Patient instructed you must have an adult route relief driver because you will not be able to work or drive for the rest of the day after your test.yes Can you please confirm the name and relationship of your route relief driver. tbd What is the best number for your route relief driver to be reached at tomorrow for updates? tbd Your route relief driver is allowed to wait here with [...] Do not wear makeup, lotion, or finger british. yes Patient instructed: Please bring a list [...] given Any barriers to Patient learning (confusion? 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 If patient needs to reschedule please call: [phone] [facility] phone number: [phone] Type of instruction given: Verbal by telephone contact. [facility] 36on 12-02-2022 36 Pt is still struggli ng with sleeping Normal [facility] MARY LEAL ([id number]) 1970 F Date Time Provider Department 12/02/22 YONI TUTTLE During your visit today, we recorded the following information about you: Barber Marie 12/02/2022 8:42 AM Signed SLEEP PHONE Name of caller: Mary Leal Relationship to patient : Self In-state or wgk-mm-litis patient: In-State Was permission obtained from patient? Yes Patient identified by Name and Date of . ( Mary Leal, 1970). Yes Reason for Call : Patient said her and Patricia was chatting through my chart and Patricia called her about 5:15 yesterday. Number to return call [phone] Okay to leave a message ? Yes [...] the AM and 4 mg PM - vbisqtshhww-znyteowxz-qbx anter (TRELEGY ELLIPTA) 100-62.5-25 mcg Inhale 1 [...] Encounter Status:Closed by PATRICIA BENTON on 12/20/22 [facility] NURSING PROGon 12-02-2022 NURSING PROG HNO ID: [id number] Author: Isra Harman RN Service: ? Author Type: Registered Nurse Type: Nursing Progress Note Filed: 12/02/2022 10:54 AM Note Text: [facility] ENDOSCOPY PRE PROCEDURE CALL Akiko. I'm calling from [facility] endoscopy to provide you with the information for your surgery/procedure tomorrow. Spoke to: Patient CONFIRM Procedure Planned with patient: Are you familiar with where [facility] is located?yes Address [facility] Patient instructed to enter through the main hospital entrance off [address] at [address] through the revolving doors and check in at the main desk with your route relief driver's license and insurance card. yes When anesthesia or sedation is being given: Patient instructed you must have an adult route relief driver because you will not be able to work or drive for the rest of the day after your test.yes Can you please confirm the name and relationship of your route relief driver. Rich What is the best number for your route relief driver to be reached at tomorrow for updates? 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 yes Patient instructed: Please bring a list [...] given Any barriers to Patient learning (confusion? 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 If patient needs to reschedule please call: [phone] [facility] phone number: [phone] Type of instruction given: Verbal by telephone contact. [facility] Telephoneon 12-02-2022 Telephone [id number] Darrian Leal 1970 Date Provider Department [place] 12/02/2022 ANNETTE BRYAN [facility] Gerardo Pool No family history on file Reason for Visit and Comments: Insomnia [216997] [facility]al Health Telemedici neon 11-30-2022 Behavioral Health Telemedicine [id number] Mary Leal 1970 Date Provider Department [place] 11/30/2022 CARMEN CHRISTIANSON [facility] Gerardo Pool No family history on file Reason for Visit and Comments: Therapy [849] [facility] Hussain 11-24-2022 CN[facility]dd Telephone (NIQ) ----- MARY LEAL ([id number]) 1970 F Date Time Provider Department 11/24/22 YONI TUTTLE During your visit today, we recorded the following information about you: Barber Marie 11/24/2022 2:50 PM Signed SLEEP PHONE Name of caller: Mary Leal Relationship to patient : Self In-state or jvz-we-utjod patient: In-State Was permission obtained from patient? Yes Patient identified by Name and Date of . ( Mary Leal, 1970). Yes Reason for Call : Patient stated she spoke to her insurance and they told her that the provider need to call Deuce to see if a PA is needed for the PAP Titration. Number to return call [phone] Okay to leave a message ? Yes [...] the AM and 4 mg PM - xxvwdurcwpp-tfelpcsci-bds anter (TRELEGY ELLIPTA) 100-62.5-25 mcg Inhale 1 [...] 11/24/[address] [facility] Health Telemedici beyer 11-23-2022 Behavioral Health Telemedicine [id number] Mary Leal 1970 F Date Provider Department Center 11/23/2022 3941-CARMEN DORSEY [facility] Gerardo Heal No family history on file Reason for Visit and Comments: Therapy [849] Telehealth Audio/video Visit [481] - WebEx Normal [facility] Hussain 11-22-2022 CNPN Telephone (GASTSP) ----- MARY LEAL ([id number]) 1970 F Date Time Provider Department 11/22/22 ISRA MASTERS GAST[facility] During your visit today, we recorded the following information about you: Lilli Denae 11/22/2022 3:38 PM Signed Patient calling to verify that Smart Pill monitor was received at [facility]. Monitor was sent via [employer] on 11/19/22. Patient is requesting a confirmation. Allergies As of Date: 11/22/2022 Noted Allergy Reaction RISPERIDONE 07/27/2021 5 - Intolerance Comments: Breast discharge Date Reviewed: 11/21/2022 Reviewed by: Yodit Back PA-C - Fully Assessed Reason for Visit: Patient Update [4604] Prescriptions as of 11/29/2022 - Cholecalciferol, Vitamin [...] the AM and 4 mg PM - flfbwtdljlo-mwtuzvgmz-yqm anter (TRELEGY ELLIPTA) 100-62.5-25 mcg Inhale 1 [...] Encounter Status:Closed by LILLI GOLDBERG on 11/29/[address] [facility] HISTORY PHYSICALon HISTORY PHYSICAL HNO ID: [id number] Author: Yodit Back PA-C Service: ? Author Type: Physician Relay Motorman Type: HANDP Filed: 11/21/2022 8:22 AM Note Text: PREANESTHESIA CONSULT CLINIC TELEHEALTH VISIT Patient has been identified by name and date of : Yes This is a virtual visit using [employer] video visit. It require patient-provider interaction for [...] in the AM and 4 mg PM ogkwxmuboyh-jbojbbmuh-ycs anter (TRELEGY ELLIPTA) 100-62.5-25 mcg Inhale 1 Puff as instructed once daily. No current facility-administered medications for this visit. COVID VACCINATION STATUS: Fully vaccinated REVIEW OF SYSTEMS: Pain Assessment: General: No weight loss, malaise or fevers. Neuro: No history of TIA's, stroke, END STAPLER tumor, impaired sensorium, hemiplegia, paraplegia or quadraplegia. [...] requiring medication, no history of angina, CHF, [place], cardiac surgery or stents. Denies rest pain, gangrene or revascularization/amputat ion for PVD. No history of cardiovascular symptoms or problems. + HLD GI: See HPI : No history of dysuria, frequency or incontinence,, stones or chronic kidney disease RN EMBEDDED: Negative for abnormal vaginal bleeding, abnormal vaginal discharge. : Denies, No LMP recorded. Patient has had a hysterectomy. Endocrine: No history of diabetes. Has not taken steroids within the past 30 (more content not included)... Normal [facility] Behavioral Health Telemedici neon 11-18-2022 Behavioral Health Telemedicine [id number] Mary Leal 1970 F Date Provider Department Center 11/18/2022 ANNETTE BRYAN [facility] PS[facility]CH Gerardo Heal No family history on file Reason for Visit and Comments: Telehealth Audio/video Visit [871] - [email or web address] Normal [facility] CNOVon 11-17-2022 CNOV Office Visit (GENSSP ) ----- MARY LEAL ([id number]) 1970 F Date Time Provider Department 11/17/22 2:00 PM WINSTON HANNAH GENADELINA During your visit today, [...] 7:06 PM Signed [facility] [place] Gastroparesis/Dysmotility Consultation SERVICE DATE: 11/17/2022 SERVICE TIME: 2:16 PM PRIMARY CARE PHYSICIAN: DO Isra Mauricio [facility] [address] [place] [address] My final recommendations will be communicated back [...] was obtained. NAME: Mary Leal CLINIC NO: [id number] DATE OF SERVICE: November 17, 2022 This [...] and some bloating. Duration of symptoms (months): 4687-0930 Weight changes in last 3 months: Steady [...] 94% Re (more content not included)... Normal [facility] Behavioral Health Telemedici neon 11-16-2022 Behavioral Health Telemedicine [id number] Mary Leal 1970 F Date Provider Department Center 11/16/2022 Keith1-CARMEN DORSEY [facility] Gerardo Heal No family history on file Reason for Visit and Comments: Therapy [849] Telehealth Audio/video Visit [871] - WebEx Normal [facility] Hussain 11-09-2022 MARIAN Telephone (CLARENCE) ----- MARY LEAL ([id number]) 1970 F Date Time Provider Department 11/09/22 YONI TUTTLE During your visit today, we recorded the following information about you: Mick Doll 11/09/2022 9:49 AM Signed SENT PATIENTS RX TO PREFERRED LOCATION [facility] [phone] Mick Doll TELEVISION ANTENNA INSTALLER Allergies As of Date: 11/09/2022 Noted Allergy Reaction RISPERIDONE 07/27/2021 5 - Intolerance Comments: Breast discharge Date Reviewed: 10/11/2022 Reviewed by: Isra Masters DO - Fully Assessed Reason for Visit: Orders [681] Cmt: SENT PATIENTS IRON RX Prescriptions as [...] (FLONASE) 50 mcg/actuation nasal spray Use 1 Dougherty in each nostril once daily. - carBAMazepine [...] LUNGS every 4 hours if needed - egokrbzjped-atfgwxkyu-bqh anter (TRELEGY ELLIPTA) 100-62.5-25 mcg Inhale 1 [...] Encounter Status:Closed by MICK DOLL on 11/09/22 [facility] MARY LEAL ([id number]) 1970 F Date Time Provider Department 11/09/22 [...] (FLONASE) 50 mcg/actuation nasal spray Use 1 Dougherty in each nostril once daily. - carBAMazepine [...] LUNGS every 4 hours if needed - scdoriadtcu-ccqfkogls-tbw anter (TRELEGY ELLIPTA) 100-62.5-25 mcg Inhale 1 [...] by KARTHIKEYAN MORRISSEY RN on 11/09/22 Normal [facility] FERRITINon 11-04-2022 FERRITIN (NG/ML) IN SER/PLAS 24.0 ng/mL Normal 11.0-307.0 [facility] Comment on above: Performed By: #### L AB68 ####[facility] (BEAKER)[address] [facility] [place] [address] Labon 11-04-2022 Lab [id number] Darrian Leal 1970 Date Provider Department [place] 11/04/2022 2242-[facility] RESOURCE [facility] Comprehensiv No family history on file Normal [facility] Refillon 11-03-2022 Refill [id number] Darrian Leal 1970 Date Provider Department [place] 11/03/2022 Len-[facility]CE [facility] Gerardo Heal No family history on file Reason for Visit and Comments: Med Refill [[id number]] Normal [facility] CNPNon 11-02-2022 CNPN Telephone (NIQ) ----- MARY LEAL ([id number]) 1970 Date Time Provider Department 11/02/22 YONI TUTTLE During your visit today, we recorded the following information about you: Barber PatelBryMartinez 11/02/2022 12:35 PM Signed Received from [facility] Sleep Laboratory Report via [...] [G47.33] Order(s):PAP TITRATION PSG (CPAP, BIPAP, ASV) [[id number]] Order #: [id number] FUTURE Prescriptions as of 12/01/2022 - Cholecalciferol, [...] the AM and 4 mg PM - bercgdckuzs-cnfaaezpc-wke anter (TRELEGY ELLIPTA) 100-62.5-25 mcg Inhale 1 [...] Encounter Status:Closed by PATRICIA BENTON on 11/17/22 [facility] Hussain 10-27-2022 KWESIN Telephone ([facility]) ----- MARY LEAL ([id number]) 1970 F Date Time Provider Department 10/27/22 ISRA MASTERS [facility] During your visit today, we [...] DO - Fully Assessed Reason for Visit: 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 [1452] Cmt: Smart Pill Scheduling Issues Prescriptions as [...] (FLONASE) 50 mcg/actuation nasal spray Use 1 Dougherty in each nostril once daily. - carBAMazepine [...] LUNGS every 4 hours if needed - allfjuafdla-vpwoximxl-hmv anter (TRELEGY ELLIPTA) 100-62.5-25 mcg Inhale 1 [...] Encounter Status:Closed by NELSY PEPE on 11/09/22 [facility] Hussain 10-24-2022 MARIAN Telephone ([facility]) ----- MARY LEAL ([id number]) 1970 F Date Time Provider Department 10/24/22 [...] calling: self Call patient at: at home [phone] (home) [phone] (cell) Closing statement: Symptom Call: Thank you for calling [facility], your call is very important. A [...] Fully Assessed Reason for Visit: Patient Question [3577] Prescriptions as of 10/24/2022 - Dexlansoprazole 60 [...] (FLONASE) 50 mcg/actuation nasal spray Use 1 Dougherty in each nostril once daily. - carBAMazepine [...] LUNGS every 4 hours if needed - ajnnvindqbn-vfqrqtsuk-vkz anter (TRELEGY ELLIPTA) 100-62.5-25 mcg Inhale 1 [...] Status:Closed by BAN BENTON on 10/24/[address] [facility] AMYLASEon 10-20-2022 Amylase [Catalytic activity/Vol] 33 U/L Normal 25-115 [facility] Comment on above: Performed By: #### L ACT #### [facility] [address] [place] [address] [address] Mirian Velasco CBC AUTO DIFFon 10-20-2022 BASO # 0.0 103/ul Normal 0.0-0.1 [facility] Comment on above: Performed By: #### P T #### [facility] [address] [place] [address] Dr. Miiran Velasco Basophils/100 WBC (Bld) 0.2 % Normal 0.2-2.0 [facility] Comment on above: Performed By: #### P T #### [facility] [address] [place] [address] Dr. Mirian Velasco EO # 0.1 103/ul Normal 0.0-0.7 [facility] Comment on above: Performed By: #### P T #### [facility] [address] [place] [address] [address] Mirian Velasco Eosinophils/100 WBC (Bld) 0.6 % Critically low 0.9-7.0 [facility] Comment on above: Performed By: #### P T #### [facility] [address] [place] [address] [address] Mirian Velasco Erythrocyte distribution width (RBC) [Ratio] 13.6 % Normal 11.0-15.0 [facility] Comment on above: Performed By: #### P T #### [facility] [address] [place] [address] Dr. Mirian Velasco Hematocrit (Bld) [Volume fraction] 41.0 % Normal 36.0-48.0 [facility] Comment on above: Performed By: #### P T #### [facility] [address] [address] [address] Mirian Velasco Hemoglobin (Bld) [Mass/Vol] 13.5 g/dL Normal 12.0-16.0 [facility] Comment on above: Performed By: #### P T #### [facility] [address] [place] [address] [address] Mirian Velasco IG # 0.06 10e3/ul Critically high 0.00-0.03 [facility] Comment on above: Performed By: #### P T #### [facility] [address] [place] [address] [address] Mirian Velasco IG % 0.4 % Normal 0.0-0.5 [facility] Comment on above: Performed By: #### P T #### [facility] [address] [place] [address] Dr. Mirian Velasco LYMPH # 2.5 103/ul Normal 1.2-3.8 [facility] Comment on above: Performed By: #### P T #### [facility] [address] [place] [address] Dr. Mirian Velasco Lymphocytes/100 WBC (Bld) 17.5 % Critically low 20.5-60.0 [facility] Comment on above: Performed By: #### P T #### [facility] [address] [place] [address] Dr. Mirian Velasco MANUAL DIFF REQ NO Normal [facility] Comment on above: Performed By: #### P T #### [facility] [address] [place] [address] Dr. Mirian Velasco MCH (RBC) [Entitic mass] 28.1 pg Normal 26.7-34.0 [facility] Comment on above: Performed By: #### P T #### [facility] [address] [place] [address] Dr. Mirian Velasco MCHC (RBC) [Mass/Vol] 32.9 g/dL Normal 29.9-35.2 [facility] Comment on above: Performed By: #### P T #### [facility] [address] [place] [address] Dr. Mirian Velasco MCV (RBC) [Entitic vol] 85.2 fL Normal 81.0-99.0 [facility] Comment on above: Performed By: #### P T #### [facility] [address] [place] [address] Dr. Mirian Velasco MONO # 0.7 103/ul Normal 0.3-0.8 [facility] Comment on above: Performed By: #### P T #### [facility] [address] [place] [address] Dr. Mirian Velasco Monocytes/100 WBC (Bld) 4.5 % Normal 1.7-12.0 [facility] Comment on above: Performed By: #### P T #### [facility] [address] [place] [address] Dr. Mirian Velasco NEUT # 11.0 103/ul Critically high 1.4-6.5 [facility] Comment on above: Performed By: #### P T #### [facility] [address] [place] [address] Dr. Mirian Velasco Neutrophils/100 WBC (Bld) 76.8 % Critically high 43.0-75.0 [facility] Comment on above: Performed By: #### P T #### [facility] [address] [place] [address] Dr. Mirian Velasco Platelet mean volume (Bld) [Entitic vol] 8.7 fL Critically low 9.5-13.5 [facility] Comment on above: Performed By: #### P T #### [facility] [address] [place] [address] Dr. Mirian Velasco PLT 390 103/ul Normal 150-450 [facility] Comment on above: Performed By: #### P T #### [facility] [address] [place] [address] Dr. Mirian Velasco RBC 4.81 106/ul Normal 4.20-5.40 [facility] Comment on above: Performed By: #### P T #### [facility] [address] [place] [address] Dr. Mirian Velasco WBC 14.3 103/ul Critically high 4.0-11.0 [facility] Comment on above: Performed By: #### P T #### [facility] [address] [place], [place] [address] ABD/PELV W CONon [...] SALMA AMEZQUITA Date: 2022-10-20 12:35 Normal [facility] CULTURE BLOODon 10-20-2022 Microscopic examination of blood, culture Culture Observations: NO GROWTH AT 5 DAYS. Normal [facility] Comment on above: Performed By: #### B LDCX2 ####[facility] [address] [place], [place] [address]PaDr. Mirian Velasco Microscopic examination of blood, culture Culture Observations: NO GROWTH AT 5 DAYS. Normal [facility] Comment on above: Performed By: #### B LDCX1 #### [facility] [address] [place] [address] Dr. 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 NO POTENTIAL PATHOGENS SEEN. Normal [facility] Comment on above: Performed By: #### U RCX #### [facility] [address] [place] [address] Dr. Mirian Velasco ER URINE PROFILEon Bilirubin Ql (U) Negative Normal NEGATIVE [facility] Comment on above: Performed By: #### P T #### [facility] [address] [place] [address] Dr. Mirian Velasco Clarity (U) CLEAR Normal CLEAR [facility] Comment on above: Performed By: #### P T #### [facility] [address] [place] [address] Dr. Mirian Velasco Color (U) LT. YELLOW Normal YELLOW [facility] Comment on above: Performed By: #### P T #### [facility] [address] [place] [address] Dr. Mirian Velasco ERUAHD A micrscopic examina tion will be performed if indicated. Normal [facility] Comment on above: Performed By: #### P T #### [facility] [address] [place] [address] Dr. Mirian Velasco Glucose Ql (U) Negative Normal NEGATIVE [facility] Comment on above: Performed By: #### P T #### [facility] [address] [place] [address] Dr. Mirian Velasco Hemoglobin Ql (U) Negative Normal NEGATIVE [facility] Comment on above: Performed By: #### P T #### [facility] [address] [place] [address] Dr. Mirian Velasco Ketones Ql (U) Negative Normal NEGATIVE [facility] Comment on above: Performed By: #### P T #### [facility] [address] [place] [address] Dr. Mirian Velasco LEUKOCYTES SMALL Abnormal NEGATIVE [facility] Comment on above: Performed By: #### P T #### [facility] [address] [place] [address] Dr. Mirian Velasco Nitrite Ql (U) Negative Normal NEGATIVE [facility] Comment on above: Performed By: #### P T #### [facility] [address] [place] [address] Dr. Mirian Velasco pH (U) 7.0 [pH] Normal 5-9 [facility] Comment on above: Performed By: #### P T #### [facility] [address] [place] [address] Dr. Mirian Velasco SPEC GRAVITY 1.015 Normal 1.005-<=1. 025 [facility] Comment on above: Performed By: #### P T #### [facility] [address] [place] [address] Dr. Mirian Velasco UA PROTEIN Negative Normal NEGATIVE/ TRACE [facility] [facility] Comment on above: Performed By: #### P T #### [facility] [address] [place] [address] Dr. Mirian Velasco UR MICRO IND INDICATED Normal [facility] Comment on above: Performed By: #### P T #### [facility] [address] [place] [address] Dr. Mirian Velasco Urobilinogen Qn (U) 0.2 {Lyubov'U}/dL Normal 0.2 - 1. 0 [facility] Comment on above: Performed By: #### P T #### [facility] [address] [place] [address] Dr. Mirian Velasco LACTATE/LACTIC ACIDon 2021 Lactate [Moles/Vol] 1.3 mmol/L Normal 0.4-1.9 [facility] Comment on above: Performed By: #### L ACT #### [facility] [address] [place] [address] Dr. Mirian Velasco LIPASEon 10-20-2022 Lipase [Catalytic activity/Vol] 49.0 U/L Critically low 73.0-393.0 [facility] Comment on above: Performed By: #### P T #### [facility] [address] [place] [address] Dr. Mirian Velasco PROF 14(COMP METB)on 10-20- 022 Albumin [Mass/Vol] 3.2 g/dL Critically low 3.4-5.0 [facility] Comment on above: Performed By: #### P T #### [facility] [address] [place] [address] Dr. Mirian Velasco Albumin/Globulin [Mass ratio] 0.9 {ratio} Normal [facility] Comment on above: Performed By: #### P T #### [facility] [address] [place] [address] Dr. Mirian Velasco ALP [Catalytic activity/Vol] 129 U/L Critically high 46-116 [facility] Comment on above: Performed By: #### P T #### [facility] [address] [place] [address] Dr. Mirian Velasco ALT [Catalytic activity/Vol] 25 U/L Normal 14-59 [facility] Comment on above: Performed By: #### P T #### [facility] [address] [place] [address] Dr. Mirian Velasco Anion gap [Moles/Vol] 10.7 mmol/L Normal [facility] Comment on above: Performed By: #### P T #### [facility] [address] [place] [address] Dr. Mirian Velasco AST [Catalytic activity/Vol] 20 U/L Normal 15-37 [facility] Comment on above: Performed By: #### P T #### [facility] [address] [place] [address] Dr. Mirian Velasco Bilirubin [Mass/Vol] 0.5 mg/dL Normal 0.2-1.0 [facility] Comment on above: Performed By: #### P T #### [facility] [address] [place] [address] Dr. Mirian Velasco Calcium [Mass/Vol] 9.2 mg/dL Normal 8.5-10.1 [facility] Comment on above: Performed By: #### P T #### [facility] [address] [address] [address] Mirian Velasco Chloride [Moles/Vol] 102 mmol/L Normal 98-107 [facility] Comment on above: Performed By: #### P T #### [facility] [address] [address] [address] Mirian Velasco CO2 [Moles/Vol] 30.0 mmol/L Normal 21.0-32.0 [facility] Comment on above: Performed By: #### P T #### [facility] [address] [address] [address] Mirian Velasco Creatinine [Mass/Vol] 0.68 mg/dL Normal 0.55-1.02 [facility] Comment on above: Performed By: #### P T #### [facility] [address] [place] [address] Dr. Mirian Velasco EGFR-AF LATVIAN >60 Normal >=60 [facility] Comment on above: Performed By: #### P T #### [facility] [address] [address] [address] Mirian Velasco EGFR-NON AF LATVIAN >60 Normal >=60 [facility] Comment on above: Performed By: #### P T #### [facility] [address] [place] [address] Dr. Mirian Velasco Globulin (S) [Mass/Vol] 3.7 g/dL Normal [facility] Comment on above: Performed By: #### P T #### [facility] [address] [address] [address] Mirian Velasco Glucose [Mass/Vol] 109 mg/dL Critically high 74-106 [facility] Comment on above: Performed By: #### P T #### [facility] [address] [place] [address] Dr. Mirian Velasco Potassium [Moles/Vol] 3.7 mmol/L Normal 3.5-5.1 [facility] Comment on above: Performed By: #### P T #### [facility] [address] [place] [address] Dr. Mirian Velasco Protein [Mass/Vol] 6.9 g/dL Normal 6.4-8.2 [facility] Comment on above: Performed By: #### P T #### [facility] [address] [place] [address] Dr. Mirian Velasco Sodium [Moles/Vol] 139 mmol/L Normal 136-145 [facility] Comment on above: Performed By: #### P T #### [facility] [address] [place] [address] Dr. Mirian Vleasco Urea nitrogen [Mass/Vol] 13.0 mg/dL Normal 7.0-18.0 [facility] Comment on above: Performed By: #### P T #### [facility] [address] [place] [address] Dr. Mirian Velasco Urea nitrogen/Creatinine [Mass ratio] 19.1 mg/mg Normal [facility] Comment on above: Performed By: #### P T #### [facility] [address] [place] [address] Dr. Mirian Velasco URINE MICROSCOPIC ONLYon BACTERIA TRACE Abnormal NONE SEEN [facility] Comment on above: Performed By: #### P T #### [facility] [address] [place] [address] Dr. Mirian Velasco Bacteria identified Cx Nom (U) INDICATED Normal [facility] Comment on above: Performed By: #### P T #### [facility] [address] [place] [address] Dr. Mirian Velasco CAST NONE SEEN Normal NONE SEEN [facility] Comment on above: Performed By: #### P T #### [facility] [address] [place] [address] Dr. Mirian Velasco Crystals LM Nom (Urine sed) NONE SEEN Normal NONE SEEN [facility] Comment on above: Performed By: #### P T #### [facility] [address] [place] [address] Dr. Mirian Velasco Epithelial cells LM Ql (Urine sed) MODERATE Abnormal NONE SEEN /RARE [facility] Comment on above: Performed By: #### P T #### [facility] [address] [address] [address] Mirian Velasco MUCOUS NONE SEEN Normal NONE SEEN [facility] Comment on above: Performed By: #### P T #### [facility] [address] [address] [address] Mirian Velasco RBC NONE SEEN Abnormal 0-2 [facility] Comment on above: Performed By: #### P T #### [facility] [address] [place] [address] Dr. Mirian Velasco WBC 2-5 Abnormal NONE SEEN [facility] Comment on above: Performed By: #### P T #### [facility] [address] [place] [address] Dr. Mirian Velasco YEAST PRESENT Abnormal NONE SEEN [facility] Comment on above: Result Comment: RARE BUDDING YEAST Performed By: #### P T #### [facility] [address] [place] [address] Dr. [facility] [employer] [facility] Telephone ([facility]) ----- MAYR LEAL ([id number]) 1970 F Date Time Provider Department 10/17/22 YONI TUTTLE [facility] During your visit today, we recorded the following information about you: Mick Doll 10/17/2022 9:19 AM Signed Faxed order, office notes, demographics, and sleep study to: [facility] name: [facility] [place] fax: [phone] [facility] ph: ALSO SENT A REQUEST FOR PTS PSG FROM [facility] [facility] [place] Allergies As of Date: 10/17/2022 Noted Allergy Reaction RISPERIDONE 07/27/2021 5 - Intolerance Comments: Breast discharge Date Reviewed: 10/11/2022 Reviewed by: Isra Masters DO - Fully Assessed Reason for Visit: PAP Rx Faxed [[phone]] Cmt: DME: [facility] Prescriptions as of 10/17/2022 - [...] (FLONASE) 50 mcg/actuation nasal spray Use 1 Dougherty in each nostril once daily. - carBAMazepine [...] LUNGS every 4 hours if needed - shmuzcavdti-oxqrigykb-kyp anter (TRELEGY ELLIPTA) 100-62.5-25 mcg Inhale 1 [...] Status:Closed by MICK DOLL on 10/17/22 Normal [facility] POINT OF CARE GLUCOSEon 10-06 Glucose [Mass/Vol] 131 mg/dL Critically high 74-106 [facility] Comment on above: Performed By: #### P OCGLUC ####[facility] [id number] [address]Dr[place] Mirian Velasco Glucose [Mass/Vol] 113 mg/dL Critically high 74-106 [facility] Comment on above: Performed By: #### P OCGLUC ####[facility] [id number] [address]Dr. Mirian Velasco XR FOOT RT 2Von 10-17-2022 [...] by: NICKI DACOSTA Date: 2022-10-17 18:04 Normal [facility]on SARS-CoV-2 (COVID-19) RNA JOSÉ MIGUEL+probe Ql (Unsp spec) Not detected Normal NOT DETECTED [facility] Comment on above: Result Comment: This test is not yet approved or cleared by the [place] FDA. When there are no FDA-approved or cleared tests available, and other criteria are met, FDA can make tests available under an emergency access mechanism called an Emergency Use Authorization (EUA). The EUA for this test is supported by the [place] of Health and Human Service's (HHS's) declaration [...] consistent with SARS-CoV-2. Performed By: #### [facility] #### [facility] [address] [address] [address] Mirian Velasco Diagnostic Mammogram, Unilat eral [...] VERY IMPORTANT TO YOUR HEALTH. THE CURRENT [place] [employer] OF [employer] AND [employer]WORK GUIDELINES RECOMMENDS ANNUAL MAMMOGRAPHY BEGINNING AT AGE 40 THIS FACILITY USES A REMINDER SYSTEM TO ENSURE ALL PATIENTS RECEIVE REMINDER NOTIFICATIONS AT THE APPROPRIATE TIME BASED ON THE RECOMMENDATIONS OF THIS EXAM. Board Certified Radiologist. Accredited by the ACR and FDA. Report reported and signed by Dawna Lizarraga on 09/28/2022 1307 Normal [facility] CBC AUTO DIFFon 09-26-2022 BASO # 0.1 103/ul Normal 0.0-0.1 [facility] Comment on above: Performed By: #### L ACT #### [facility] [address] [address] [address] Mirian Velasco Basophils/100 WBC (Bld) 0.8 % Normal 0.2-2.0 [facility] Comment on above: Performed By: #### L ACT #### [facility] [address] [address] [address] Mirian Velasco EO # 0.1 103/ul Normal 0.0-0.7 [facility] Comment on above: Performed By: #### L ACT #### [facility] [address] [address] [address] Mirian Velasco Eosinophils/100 WBC (Bld) 1.5 % Normal 0.9-7.0 [facility] Comment on above: Performed By: #### L ACT #### [facility] [address] [address] [address] Mirian Velasco Erythrocyte distribution width (RBC) [Ratio] 13.4 % Normal 11.0-15.0 [facility] Comment on above: Performed By: #### L ACT #### [facility] [address] [place] [address] Dr. Mirian Velasco Hematocrit (Bld) [Volume fraction] 41.3 % Normal 36.0-48.0 [facility] Comment on above: Performed By: #### L ACT #### [facility] [address] [place] [address] Dr. Mirian Velasco Hemoglobin (Bld) [Mass/Vol] 13.4 g/dL Normal 12.0-16.0 [facility] Comment on above: Performed By: #### L ACT #### [facility] [address] [address] [address] Mirian Velasco IG # 0.04 10e3/ul Critically high 0.00-0.03 [facility] Comment on above: Performed By: #### L ACT #### [facility] [address] [address] [address] Mirian Velasco IG % 0.5 % Normal 0.0-0.5 [facility] Comment on above: Performed By: #### L ACT #### [facility] [address] [place] [address] Dr. Mirian Velasco LYMPH # 2.5 103/ul Normal 1.2-3.8 [facility] Comment on above: Performed By: #### L ACT #### [facility] [address] [place] [address] Dr. Mirian Velasco Lymphocytes/100 WBC (Bld) 27.7 % Normal 20.5-60.0 [facility] Comment on above: Performed By: #### L ACT #### [facility] [address] [place] [address] Dr. Mirian Velasco MANUAL DIFF REQ NO Normal [facility] Comment on above: Performed By: #### L ACT #### [facility] [address] [place] [address] Dr. Mirian Velasco MCH (RBC) [Entitic mass] 27.6 pg Normal 26.7-34.0 [facility] Comment on above: Performed By: #### L ACT #### [facility] [address] [place] [address] Dr. Mirian Velasco MCHC (RBC) [Mass/Vol] 32.4 g/dL Normal 29.9-35.2 [facility] Comment on above: Performed By: #### L ACT #### [facility] [address] [place] [address] Dr. Mirian Velasco MCV (RBC) [Entitic vol] 85.0 fL Normal 81.0-99.0 [facility] Comment on above: Performed By: #### L ACT #### [facility] [address] [place] [address] Dr. Mirian Velasco MONO # 0.6 103/ul Normal 0.3-0.8 [facility] Comment on above: Performed By: #### L ACT #### [facility] [address] [place] [address] Dr. Mirian Velasco Monocytes/100 WBC (Bld) 6.9 % Normal 1.7-12.0 [facility] Comment on above: Performed By: #### L ACT #### [facility] [address] [place] [address] Dr. Mirian Velasco NEUT # 5.6 103/ul Normal 1.4-6.5 [facility] Comment on above: Performed By: #### L ACT #### [facility] [address] [place] [address] Dr. Mirian Velasco Neutrophils/100 WBC (Bld) 62.6 % Normal 43.0-75.0 [facility] Comment on above: Performed By: #### L ACT #### [facility] [address] [place] [address] Dr. Mirian Velasco Platelet mean volume (Bld) [Entitic vol] 8.6 fL Critically low 9.5-13.5 [facility] Comment on above: Performed By: #### L ACT #### [facility] [address] [place] [address] Dr. Mirian Velasco PLT 372 103/ul Normal 150-450 [facility] Comment on above: Performed By: #### L ACT #### [facility] [address] [place] [address] Dr. Mirian Velasco RBC 4.86 106/ul Normal 4.20-5.40 [facility] Comment on above: Performed By: #### L ACT #### [facility] [address] [place] [address] Dr. Mirian Velasco WBC 8.9 103/ul Normal 4.0-11.0 [facility] Comment on above: Performed By: #### L ACT #### [facility] [address] [place] [address] Dr. Mirian Velasco PROF CHEM 8 (BAS METB)on Anion gap [Moles/Vol] 8.0 mmol/L Normal [facility] Comment on above: Performed By: #### P T #### [facility] [address] [place] [address] Dr. Mirian Velasco Calcium [Mass/Vol] 9.0 mg/dL Normal 8.5-10.1 [facility] Comment on above: Performed By: #### P T #### [facility] [address] [address] [address] Mirian Velasco Chloride [Moles/Vol] 106 mmol/L Normal 98-107 [facility] Comment on above: Performed By: #### P T #### [facility] [address] [address] [address] Mirian Velasco CO2 [Moles/Vol] 30.3 mmol/L Normal 21.0-32.0 [facility] Comment on above: Performed By: #### P T #### [facility] [address] [place] [address] Dr. Mirian Velasco Creatinine [Mass/Vol] 0.71 mg/dL Normal 0.55-1.02 [facility] Comment on above: Performed By: #### P T #### [facility] [address] [place] [address] Dr. Mirian Velasco EGFR-AF LATVIAN >60 Normal >=60 [facility] Comment on above: Performed By: #### P T #### [facility] [address] [address] [address] Mirian Velasco EGFR-NON AF LATVIAN >60 Normal >=60 [facility] Comment on above: Performed By: #### P T #### [facility] [address] [place] [address] Dr. Mirian Velasco Glucose [Mass/Vol] 81 mg/dL Normal 74-106 [facility] Comment on above: Performed By: #### P T #### [facility] [address] [place] [address] Dr. Mirian Velasco Potassium [Moles/Vol] 4.3 mmol/L Normal 3.5-5.1 [facility] Comment on above: Performed By: #### P T #### [facility] [address] [place] [address] Dr. Mirian Velasco Sodium [Moles/Vol] 140 mmol/L Normal 136-145 [facility] Comment on above: Performed By: #### P T #### [facility] [address] [place], [place] [address] Dr. Mirian Velasco Urea nitrogen [Mass/Vol] 16.0 mg/dL Normal 7.0-18.0 [facility] Comment on above: Performed By: #### P T #### [facility] [address] [address] [address] Mirian Velasco Urea nitrogen/Creatinine [Mass ratio] 22.5 mg/mg Normal [facility] Comment on above: Performed By: #### P T #### [facility] [id number] Mirian Velasco CHUY[place] Antinuclear Antibodieson 09-22-2022 Antinuclear Abs, IFA Negative Normal . [facility] Comment on above: Order Comment: Reaso n for Exam Generalized pain Result Comment: Nega tive <1:80 Borderline 1:80 Positive >1:80 ICAP nomenclature: AC-0 For more information about Hep-2 cell patterns use ANApatterns.org, the official website for the International Consensus on Antinuclear Antibody (CHUYITA) Patterns (ICAP). Performed at: - [facility] [address] [id number] Color Finisher: Erick Neville PhD, Phone: [phone] PERFORMED BY: [place] [address] PATHOLOGIST MOUNTER SOUSAPHONES LEVAR CASE M.D. Performed By: #### T 4T, ESR, URIC, CRP, TSH3 #### [address] #### RA, CHUYITA #### [facility] , C reactive protein [Mass/vol ume] in Serum or PlasmaOrdered By: Annette Harris on 09-22-2022 CRP [Mass/Vol] 0.6 mg/dL 0.0-1.0 [facility] C-Reactive Proteinon 022 C-Reactive Protein 0.6 mg/dL Normal 0.0-1.0 mg/dL [employer] Other C-Reactive Protein 0.6 mg/dL Normal 0.0-1.0 [facility] Comment on above: Order Comment: Reaso n for Exam Generalized pain Performed By: #### T 4T, ESR, URIC, CRP, TSH3 #### [facility] [address] [place] [address] [place] #### RA, CHUYITA #### [facility] , Erythrocyte Sedimentation Ra lian 09-22-2022 ESR (Bld) [Velocity] 4 mm/h Normal 0-29 [facility] [employer] Other Comment on above: Order Comment: Reaso n for Exam Generalized pain Result Comment: PERF ORMED BY: [place] [address] PATHOLOGIST MOUNTER SOUSAPHONES LEVAR CASE M.D. Performed By: #### T 4T, ESR, URIC, CRP, TSH3 #### [facility] [address] [place] [address] #### RA, CHUYITA #### [facility] , Erythrocyte sedimentation ra te by Photometric methodOrdered By: Annette Harris on 09-22-2022 ESR Photometric method (Bld) [Velocity] 4 mm/hr 0-29 [facility] Rheumatoid Factoron 09-22-20 Rheumatoid Factor <10.0 Normal <14.0 [facility] Comment on above: Order Comment: Reaso n for Exam Generalized pain Result Comment: Perf ormed at: - [facility] [address] [id number] Color Finisher: Erick Neville PhD, Phone: [phone] Performed By: #### T 4T, ESR, URIC, CRP, TSH3 #### [facility] [address] [place] [address] [place] #### RA, CHUYITA #### [facility] , Serum nuclear antibody titer Ordered By: Annette Harris on 09-22-2022 Nuclear Ab (S) [Titer] Negative . [facility] Comment on above: Negative <1:80 Borde rline 1:80 Positive >1:80ICAP nomenclature: AC-0For more information about Hep-2 cell patterns useANApatterns.org, the official website for theInternational Consensus on Antinuclear Antibody (CHUYITA)Patterns (ICAP).Performed at: [place] - [facility] [address] [id number] Director: Erick Neville PhD, Phone: [phone] Serum or plasma rheumatoid f actor measurement (units/volume)Ordered By: Annette Harris on 09-22-2022 Rheumatoid factor Qn [IU]/mL <14.0 [facility] Comment on above: Performed at: [place] - [facility] [address] [id number] Director: Erick Neville PhD, Phone: [phone] Serum or plasma thyroxine (T 4) measurement (mass/volume)Ordered By: Annette Harris on 09-22-2022 T4 [Mass/Vol] 9.82 ug/dL 5.39-11.82 [facility] Serum or plasma uric acid me asurement (mass/volume)Ordered By: Annette Harris on 09-22-2022 Urate [Mass/Vol] 4.2 mg/dL 2.6-7.2 [facility] TSH DL <= 0.005 mIU/L QnOrde red By: Annette Harris on 09-22-2022 TSH Qn 1.98 m[IU]/L 0.45-5.33 [facility] Thyroid Stimulating Hormoneo n 09-22-2022 TSH Qn 1.18481749507 m[IU]/L Normal 0.45-5 .33 u[iU]/mL [employer] Other TSH Qn 1.98 m[IU]/L Normal 0.45-5.33 [facility] Comment on above: Order Comment: Reaso n for Exam Generalized pain Result Comment: PERF ORMED BY: [place] [id number] PATHOLOGIST MOUNTER SOUSAPHONES LEVAR CASE M.D. Performed By: #### T 4T, ESR, URIC, CRP, TSH3 #### [place] [id number] [place] #### RA, CHUYITA #### [facility] , Thyroxine (T4) Totalon 09-22 Thyroxine (T4) Total 9.82 ug/dL Normal 5.39-11 .82 ug/dL [facility] [employer] Other T4 [Mass/Vol] 9.82 ug/dL Normal 5.39-11.82 [facility] Comment on above: Order Comment: Reaso n for Exam Generalized pain Performed By: #### T 4T, ESR, URIC, CRP, TSH3 #### [facility] [address] [place] [address] [place] #### RA, CHUYITA #### [facility] , Uric Acidon 09-22-2022 Urate [Mass/Vol] 4.4872734 mg/dL Normal 2.6-7.2 mg/dL [facility] [employer] Other Urate [Mass/Vol] 4.2 mg/dL Normal 2.6-7.2 [facility] Comment on above: Order Comment: Reaso n for Exam Generalized pain Performed By: #### T 4T, ESR, URIC, CRP, TSH3 #### [facility] [address] [place] [address] [place] #### RA, CHUYITA #### [facility] , XR knee BI 2Von 09-22-2022 XR knee BI 2V [facility] [place] [address] [place] [address] XRay Report Signed Patient: Mary Leal MR#: [id number] : 1970 Acct:[id number] Age/Sex: 52 / F ADM Date: 09/22/22 Loc: [facility]: Annette Harris MD Copies to: [...] Joshua Garcia M.D.09/22/2022 2:17 PM Dictation Location: [place] [address] Transcribed By: [facility] 09/22/221416 Dictated By: Joshua Garcia II, MD 09/22/221414 Signed By: 09/22/22 [address] [facility] XR knee BI 2V [facility] [employer] Other XR knee BI 2V [facility] [employer] Other XR knee BI 2V [address] [place] [address] [employer] Other XR knee BI 2V [address] [employer] Other XR knee BI 2V XRay Report [facility] [employer] [employer] Other XR knee BI 2V Signed [employer] Other XR knee BI 2V Patient: Darrian Leal jonathan Kenny MR#: [id number] [place] [employer] Other XR knee BI 2V 863 [employer] Other XR knee BI 2V : 1970 Acct:[id number] [employer] Other XR knee BI 2V Age/Sex: 52 / F ADM Date: 09/22/22 [employer] Other XR knee BI 2V [place]: [facility] [place]: Type : [facility] [employer] Other XR knee BI 2V Attending Dr: Annette Harris MD [employer] Other XR knee BI 2V Copies to: Annette Harris MD [employer] Other XR knee BI 2V Ordering Provider: Carey Harris MD [employer] Other XR knee BI 2V Date of Service: 09/22/22 [employer] Other XR knee BI 2V XR/XR knee BI 2V: Knee pain [employer] Other XR knee BI 2V XR knee BI 2V 2021 9:23 AM [employer] Other XR knee BI 2V SIGNS AND SYMPTOMS: Bilateral knee pain right greater than left [employer] Other XR knee BI 2V PROTOCOL: Frontal an d lateral radiographs of the bilateral knees [employer] Other XR knee BI 2V COMPARISON: None [employer] Other XR knee BI 2V FINDINGS: [employer] Other XR knee BI 2V There is evidence of prior ACL repair in the left knee with mild narrowing of the weightbearing [employer] Other XR knee BI 2V joint spaces on the left. The joint spaces are otherwise preserved. There is no fracture or [employer] Other XR knee BI 2V dislocation. No join t effusion or soft tissue swelling. [employer] Other XR knee BI 2V X R/XR knee BI 2V [employer] Other XR knee BI 2V IMPRESSION: [facility] [employer] Other XR knee BI 2V Status post ACL repa ir on the left. [employer] Other XR knee BI 2V Mild degenerative ch anges are noted in the weightbearing joint spaces of the left. [employer] Other XR knee BI 2V No acute bony injury. [employer] Other XR knee BI 2V Impression dictated by: Joshua Garcia M.D.09/22/2022 2:17 PM [employer] Other XR knee BI 2V Dictation Location: [place] [address] [employer] Other XR knee BI 2V Transcribed By: MARIO 09/22/22 1417 [employer] Other XR knee BI 2V Dictated By: Joshua Garcia II, MD 09/22/22 1415 [employer] Other XR knee BI 2V Signed By: [employer] Other XR knee BI 2V 09/22/22 1415 [facility] Other XR shoulder BI min 2Von 09-06 XR shoulder BI min 2V [facility] [place] [address] [place] [address] XRay Report Signed Patient: Mary Leal MR#: [id number] : 1970 Acct:[id number] Age/Sex: 52 / F ADM Date: 09/22/22 Loc: [facility] [place] Room: Type: [facility] Attending Dr: Annette Harris MD Copies to: [...] Joshua Garcia M.D.09/22/2022 2:20 PM Dictation Location: [place] [address] Transcribed By: [facility] 09/22/22 1420 Dictated By: Joshua Garcia II, MD 09/22/22 1417 Signed By: 09/22/22 1420 [facility] XR shoulder BI min 2V XR/XR shoulder BI min 2V: Shoulder pain [employer] Other XR shoulder BI min 2V XR shoulder BI min 2V 09/22/2022 9:23 AM [employer] Other XR shoulder BI min 2V SIGNS AND SYMPTOMS : Bilateral shoulder pain with limited range of motion [employer] Other XR shoulder BI min 2V PROTOCOL: Frontal, Grashey, scapular Y, and axillary views of the bilateral shoulders [employer] Other XR shoulder BI min 2V COMPARISON: 02/26/2018 [employer] Other XR shoulder BI min 2V There has been bon y resorption of the lateral margin of the clavicle on the right suggesting [employer] Other XR shoulder BI min 2V osteomyelitis is w hich may be degenerative or traumatic. Mild hypertrophy of the AC joint is noted. [employer] Other XR shoulder BI min 2V The glenohumeral j oint is preserved on the right. There is subcortical sclerosis greater tuberosity [employer] Other XR shoulder BI min 2V of the right sugge sting underlying rotator cuff abnormalities. This is new when compared to the [employer] Other XR shoulder BI min 2V prior exam. The visualized right hemithorax is grossly intact. [employer] Other XR shoulder BI min 2V There is mild hype rtrophy of the left acromioclavicular joint. There is mild subcortical sclerosis [employer] Other XR shoulder BI min 2V of the greater tub erosity in the left suggesting underlying rotator cuff abnormalities. The [employer] Other XR shoulder BI min 2V glenohumeral joint is preserved. There is no fracture or dislocation. Visualized left hemithorax is [employer] Other XR shoulder BI min 2V grossly intact. [employer] Other XR shoulder BI min 2V There is partial visualization of intervertebral disc arthroplasty is noted within the lower [employer] Other XR shoulder BI min 2V cervical spine. Rudimentary ribs are noted at C7, right greater than left [employer] Other XR shoulder BI min 2V XR/XR shoulder BI min 2V [employer] Other XR shoulder BI min 2V Degenerative velasco es are noted in the bilateral shoulders with findings suspicious for bilateral [employer] Other XR shoulder BI min 2V rotator cuff abnormalities as above. 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 CURRENT [place] [employer] GUIDELINES RECOMMENDS ANNUAL MAMMOGRAPHY BEGINNING AT AGE 42. THIS FACILITY USUALLY USES A REMINDER SYSTEM TO ENSURE ALL POSITIONS RECEIVED REMINDER NOTIFICATIONS AT THE TIME BASED ON THE RECOMMENDATIONS OF THIS EXAM. Report reported and signed by Zaida Diaz on 09/16/2022 1334 Normal [facility] [employer] Tobacco Screening.on 022 Adult depression screening assessment No [facility] [address] DO Work Phone: Tobacco use status [facility]PH[facility] b) No [facility] DO Work Phone: COVID Quick Testingon 2021 Result Negative [employer] Other AMYLASEon 04-17-2022 Amylase [Catalytic activity/Vol] 38 U/L Normal 25-115 [facility] Comment on above: Performed By: #### P T #### [facility] [address] [place] [address] Dr. Mirian Velasco CBC AUTO DIFFon 04-17-2022 BASO # 0.1 103/ul Normal 0.0-0.1 [facility] Comment on above: Performed By: #### L ACT #### [facility] [address] [place] [address] Dr. Mirian Velasco Basophils/100 WBC (Bld) 1.0 % Normal 0.2-2.0 [facility] Comment on above: Performed By: #### L ACT #### [facility] [address] [place] [address] Dr. Mirian Velasco EO # 0.2 103/ul Normal 0.0-0.7 [facility] Comment on above: Performed By: #### L ACT #### [facility] [address] [place] [address] Dr. Mirian Velasco Eosinophils/100 WBC (Bld) 3.3 % Normal 0.9-7.0 [facility] Comment on above: Performed By: #### L ACT #### [facility] [address] [place] [address] Dr. Mirian Velasco Erythrocyte distribution width (RBC) [Ratio] 12.0 % Normal 11.0-15.0 [facility] Comment on above: Performed By: #### L ACT #### [facility] [address] [place] [address] Dr. Mirian Velasco Hematocrit (Bld) [Volume fraction] 37.3 % Normal 36.0-48.0 [facility] Comment on above: Performed By: #### L ACT #### [facility] [address] [place] [address] Dr. Mirian Velasco Hemoglobin (Bld) [Mass/Vol] 12.1 g/dL Normal 12.0-16.0 [facility] Comment on above: Performed By: #### L ACT #### [facility] [address] [place] [address] Dr. Mirian Velasco IG # 0.03 10e3/ul Normal 0.00-0.03 [facility] Comment on above: Performed By: #### L ACT #### [facility] [address] [place] [address] Dr. Mirian Velasco IG % 0.4 % Normal 0.0-0.5 [facility] Comment on above: Performed By: #### L ACT #### [facility] [address] [place] [address] Dr. Mirian Velasco LYMPH # 1.8 103/ul Normal 1.2-3.8 [facility] Comment on above: Performed By: #### L ACT #### [facility] [address] [place] [address] Dr. Mirian Velasco Lymphocytes/100 WBC (Bld) 25.2 % Normal 20.5-60.0 [facility] Comment on above: Performed By: #### L ACT #### [facility] [address] [place] [address] Dr. Mirian Velasco MANUAL DIFF REQ NO Normal [facility] Comment on above: Performed By: #### L ACT #### [facility] [address] [place] [address] Dr. Mirian Velasco MCH (RBC) [Entitic mass] 29.0 pg Normal 26.7-34.0 [facility] Comment on above: Performed By: #### L ACT #### [facility] [address] [place] [address] Dr. Mirian Velasco MCHC (RBC) [Mass/Vol] 32.4 g/dL Normal 29.9-35.2 [facility] Comment on above: Performed By: #### L ACT #### [facility] [address] [place] [address] Dr. Mirian Velasco MCV (RBC) [Entitic vol] 89.4 fL Normal 81.0-99.0 [facility] Comment on above: Performed By: #### L ACT #### [facility] [address] [place] [address] Dr. Mirian Velasco MONO # 0.4 103/ul Normal 0.3-0.8 [facility] Comment on above: Performed By: #### L ACT #### [facility] [address] [place] [address] Dr. Mirian Velasco Monocytes/100 WBC (Bld) 5.8 % Normal 1.7-12.0 [facility] Comment on above: Performed By: #### L ACT #### [facility] [address] [place] [address] Dr. Mirian Velasco NEUT # 4.6 103/ul Normal 1.4-6.5 [facility] Comment on above: Performed By: #### L ACT #### [facility] [address] [place] [address] Dr. Mirian Velasco Neutrophils/100 WBC (Bld) 64.3 % Normal 43.0-75.0 [facility] Comment on above: Performed By: #### L ACT #### [facility] [address] [place] [address] Dr. Mirian Velasco Platelet mean volume (Bld) [Entitic vol] 8.6 fL Critically low 9.5-13.5 [facility] Comment on above: Performed By: #### L ACT #### [facility] [address] [place] [address] Dr. Mirian Velasco PLT 597 103/ul Critically high 150-450 [facility] Comment on above: Performed By: #### L ACT #### [facility] [address] [place] [address] Dr. Mirian Velasco RBC 4.17 106/ul Critically low 4.20-5.40 [facility] Comment on above: Performed By: #### L ACT #### [facility] [address] [place] [address] Dr. Mirian Velasco WBC 7.2 103/ul Normal 4.0-11.0 [facility] Comment on above: Performed By: #### L ACT #### [facility] [address] [place] [address] ABD/PELVIS WO Meseret 04-17 CT ABD/PELVIS WO CON EXAM: CT [...] LORRI TRIPLETT Date: 2022-04-17 11:19 Normal [facility] ER URINE PROFILEon 2 Bilirubin Ql (U) Negative Normal NEGATIVE [facility] Comment on above: Performed By: #### P T #### [facility] [address] [place], [place] [address] Dr. Mirian Velasco Clarity (U) CLEAR Normal CLEAR [facility] Comment on above: Performed By: #### P T #### [facility] [address] [place] [address] Dr. Mirian Velasco Color (U) YELLOW Normal YELLOW [facility] Comment on above: Performed By: #### P T #### [facility] [address] [place] [address] Dr. Mirian KING A micrscopic examina tion will be performed if indicated. Normal [facility] Comment on above: Performed By: #### P T #### [facility] [address] [place] [address] Dr. Mirian Velasco Glucose Ql (U) Negative Normal NEGATIVE [facility] Comment on above: Performed By: #### P T #### [facility] [address] [place] [address] Dr. Mirian Velasco Hemoglobin Ql (U) Negative Normal NEGATIVE [facility] Comment on above: Performed By: #### P T #### [facility] [address] [place] [address] Dr. Mirian Velasco Ketones Ql (U) Negative Normal NEGATIVE [facility] Comment on above: Performed By: #### P T #### [facility] [address] [place] [address] Dr. Mirian Velasco LEUKOCYTES Negative Normal NEGATIVE [facility] Comment on above: Performed By: #### P T #### [facility] [address] [place] [address] Dr. Mirian Velasco Nitrite Ql (U) Negative Normal NEGATIVE [facility] Comment on above: Performed By: #### P T #### [facility] [address] [place] [address] Dr. Mirian Velasco pH (U) 5.5 [pH] Normal 5-9 [facility] Comment on above: Performed By: #### P T #### [facility] [address] [place] [address] Dr. Mirian Velasco SPEC GRAVITY >=1.030 Abnormal 1.005-<=1. 025 [facility] Comment on above: Performed By: #### P T #### [facility] [address] [place] [address] Dr. Mirian Velasco UA PROTEIN Negative Normal NEGATIVE/ TRACE [facility] Comment on above: Performed By: #### P T #### [facility] [address] [place] [address] Dr. Mirian Velasco UR MICRO IND NOT INDICATED Normal [facility] Comment on above: Performed By: #### P T #### [facility] [address] [place] [address] Dr. Mirian Velasco Urobilinogen Qn (U) 0.2 {Lyubov'U}/dL Normal 0.2 - 1. 0 [facility] Comment on above: Performed By: #### P T #### [facility] [address] [place] [address] Dr. Mirian Velasco LIPASEon 04-17-2022 Lipase [Catalytic activity/Vol] 117.0 U/L Normal 73.0-393.0 [facility] Comment on above: Performed By: #### P T #### [facility] [address] [place] [address] Dr. Mirian Velasco PROF 14(COMP METB)on 022 Albumin [Mass/Vol] 3.5 g/dL Normal 3.4-5.0 [facility] Comment on above: Performed By: #### P T #### [facility] [address] [place] [address] Dr. Mirian Velasco Albumin/Globulin [Mass ratio] 0.9 {ratio} Normal [facility] Comment on above: Performed By: #### P T #### [facility] [address] [place] [address] Dr. Mirian Velasco ALP [Catalytic activity/Vol] 237 U/L Critically high 46-116 [facility] Comment on above: Performed By: #### P T #### [facility] [address] [place] [address] Dr. Mirian Velasco ALT [Catalytic activity/Vol] 53 U/L Normal 14-59 [facility] Comment on above: Performed By: #### P T #### [facility] [address] [place] [address] Dr. Mirian Velasco Anion gap [Moles/Vol] 11.0 mmol/L Normal [facility] Comment on above: Performed By: #### P T #### [facility] [address] [place] [address] [address] Mirian Velasco AST [Catalytic activity/Vol] 45 U/L Critically high 15-37 [facility] Comment on above: Performed By: #### P T #### [facility] [address] [place] [address] [address] Mirian Velasco Bilirubin [Mass/Vol] 0.2 mg/dL Normal 0.2-1.0 [facility] Comment on above: Performed By: #### P T #### [facility] [address] [place] [address] [address] Mirian Velasco Calcium [Mass/Vol] 9.3 mg/dL Normal 8.5-10.1 [facility] Comment on above: Performed By: #### P T #### [facility] [address] [place] [address] [address] Mirian Velasco Chloride [Moles/Vol] 105 mmol/L Normal 98-107 [facility] Comment on above: Performed By: #### P T #### [facility] [address] [place] [address] [address] Mirian Velasco CO2 [Moles/Vol] 29.5 mmol/L Normal 21.0-32.0 [facility] Comment on above: Performed By: #### P T #### [facility] [address] [place] [address] [address] Mirian Velasco Creatinine [Mass/Vol] 0.69 mg/dL Normal 0.55-1.02 [facility] Comment on above: Performed By: #### P T #### [facility] [address] [place] [address] [address] Mirian Velasco EGFR-AF LATVIAN >110 Normal >=60 [facility] Comment on above: Performed By: #### P T #### [facility] [address] [place] [address] [address] Mirian Velasco EGFR-NON AF LATVIAN >90 Normal >=60 [facility] Comment on above: Performed By: #### P T #### [facility] [address] [place] [address] [address] Mirian Velasco Globulin (S) [Mass/Vol] 4.0 g/dL Normal [facility] Comment on above: Performed By: #### P T #### [facility] [address] [place] [address] [address] Mirian Velasco Glucose [Mass/Vol] 107 mg/dL Critically high 74-106 [facility] Comment on above: Performed By: #### P T #### [facility] [address] [place] [address] [address] Mirian Velasco Potassium [Moles/Vol] 4.5 mmol/L Normal 3.5-5.1 [facility] Comment on above: Performed By: #### P T #### [facility] [address] [place] [address] Dr. Mirian Velasco Protein [Mass/Vol] 7.5 g/dL Normal 6.4-8.2 [facility] Comment on above: Performed By: #### P T #### [facility] [address] [place] [address] [address] Mirian Velasco Sodium [Moles/Vol] 141 mmol/L Normal 136-145 [facility] Comment on above: Performed By: #### P T #### [facility] [address] [place] [address] [address] Mirian Velasco Urea nitrogen [Mass/Vol] 11.0 mg/dL Normal 7.0-18.0 [facility] Comment on above: Performed By: #### P T #### [facility] [address] [place] [address] [address] Mirian Velasco Urea nitrogen/Creatinine [Mass ratio] 15.9 mg/mg Normal [facility] Comment on above: Performed By: #### P T #### [facility] [address] [place] [address] Dr. Mirian Velasco XR CHEST 1 Von 04-17-2022 XR CHEST 1 V EXAM: Chest x-ray HISTORY: Pain. COMPARISON: 02/20/2022 TECHNIQUE: AP portable upright view of the chest. FINDINGS: Heart and Vascularity are unremarkable. Lungs are free of focal infiltrates. No effusions are noted. Impression: No acute heart or lung disease identified. Electronically authenticated by: NICKI BUTT Date: 2022-04-17 11:03 Normal [facility] Basic metabolic 2000 panelon 04-05-2022 Anion gap [Moles/Vol] 13 mmol/L Normal 9-18 [facility] Comment on above: Order Comment: Speci men Type: BLOOD SPECIMEN Ordering Facility: [facility] Address: [address] [place] [address] Performed By: #### 5 8410-2 #### [facility] CLIA [id number] [address] [place] [address] [place] Calcium [Mass/Vol] 9.0 mg/dL Normal 8.5-10.2 [facility] Comment on above: Order Comment: Speci men Type: BLOOD SPECIMEN Ordering Facility: [facility] Address: [address] [place] [address] Performed By: #### 5 8410-2 #### [facility] CLIA [id number] [address] [place] [address] [place] Chloride [Moles/Vol] 104 mmol/L Normal 97-105 [facility] Comment on above: Order Comment: Speci men Type: BLOOD SPECIMEN Ordering Facility: [facility] Address: [address] [place] [address] Performed By: #### 5 8410-2 #### [facility] CLIA [id number] [address] [place] [address] [place] CO2 [Moles/Vol] 25 mmol/L Normal 22-30 [facility] Comment on above: Order Comment: Speci men Type: BLOOD SPECIMEN Ordering Facility: [facility] Address: [address] [place] [address] Performed By: #### 5 8410-2 #### [facility] CLIA [id number] [address] [place] [address] [place] Creatinine [Mass/Vol] 0.65 mg/dL Normal 0.58-0.96 [facility] Comment on above: Order Comment: Speci men Type: BLOOD SPECIMEN Ordering Facility: [facility] Address: [address] [place] [address] Performed By: #### 5 8410-2 #### [facility] CLIA [id number] [address] [place] [address] [place] ESTIMATED GLOMERULAR FILTRATION RATE 108 mL/min/1.73m??? Normal >=60 [facility] Comment on above: Order Comment: Leanne terry Type: BLOOD SPECIMEN Ordering Facility: [facility] Address: [address] [address] Result Comment: Mary mated Glomerular Filtration Rate [...] GFR. Performed By: #### 5 8410-2 #### [facility] CLIA [id number] [address] [place] [address] [place] Glucose [Mass/Vol] 109 mg/dL High 74-99 [facility] Comment on above: Order Comment: Leanne terry Type: BLOOD SPECIMEN Ordering Facility: [facility] Address: [address] [place] [address] Result Comment: The [place] Diabetes Association (ADA) provides guidance for cutoff [...] Standards of Medical Care in Diabetes 2016, [place] Diabetes Association. Diabetes Care. 2016.39(Suppl 1). Performed By: #### 5 8410-2 #### [facility] CLIA [id number] [address] [place] [address] [place] Potassium [Moles/Vol] 3.9 mmol/L Normal 3.7-5.1 [facility] Comment on above: Order Comment: Speci men Type: BLOOD SPECIMEN Ordering Facility: [facility] Address: [address] [place] [address] Performed By: #### 5 8410-2 #### [facility] CLIA [id number] [address] [place] [address] [place] Sodium [Moles/Vol] 142 mmol/L Normal 136-144 [facility] Comment on above: Order Comment: Speci men Type: BLOOD SPECIMEN Ordering Facility: [facility] Address: [address] [place] [address] Performed By: #### 5 8410-2 #### [facility] CLIA [id number] [address] [place] [address] [place] Urea nitrogen [Mass/Vol] 7 mg/dL Normal 7-21 [facility] Comment on above: Order Comment: Speci men Type: BLOOD SPECIMEN Ordering Facility: [facility] Address: [address] [place] [address] Performed By: #### 5 8410-2 #### [facility] CLIA [id number] [address] [place] [address] [place] CBC W Auto Differential pane l (Bld)on 04-05-2022 Basophils (Bld) [#/Vol] 0.05 10*3/uL Normal <0.11 [facility] Comment on above: Order Comment: Speci men Type: BLOOD SPECIMENOrdering Facility: [facility] Address: [address] [place] [address] Performed By: #### B MP #### [place] [address] Basophils/100 WBC (Bld) 0.7 % Normal [facility] Comment on above: Order Comment: Speci men Type: BLOOD SPECIMENOrdering Facility: [facility] Address: [address] [place] [address] Performed By: #### B MP #### [place] [id number] Differential cell count method Nom (Bld) Auto Normal [facility] Comment on above: Order Comment: Speci men Type: BLOOD SPECIMENOrdering Facility: [facility] Address: [address] [place] [address] Performed By: #### B MP #### [place] [phone] Eosinophils (Bld) [#/Vol] 0.55 10*3/uL High <0.46 [facility] Comment on above: Order Comment: Speci men Type: BLOOD SPECIMENOrdering Facility: [facility] Address: [address] [place] [address] Performed By: #### B MP #### [address] Eosinophils/100 WBC (Bld) 8.2 % Normal [facility] Comment on above: Order Comment: Speci men Type: BLOOD SPECIMENOrdering Facility: [facility] Address: [address] [place] [address] Performed By: #### B MP #### [place] [id number] Erythrocyte distribution width (RBC) [Ratio] 12.8 % Normal 11.5-15.0 [facility] Comment on above: Order Comment: Speci men Type: BLOOD SPECIMENOrdering Facility: [facility] Address: [address] [place] [address] Performed By: #### B MP #### [place] [phone] Hematocrit (Bld) [Volume fraction] 31.1 % Low 36.0-46.0 [facility] Comment on above: Order Comment: Speci men Type: BLOOD SPECIMENOrdering Facility: [facility] Address: [address] [place] [address] Performed By: #### B MP #### [place] [phone] Hemoglobin (Bld) [Mass/Vol] 10.5 g/dL Low 11.5-15.5 [facility] Comment on above: Order Comment: Speci men Type: BLOOD SPECIMENOrdering Facility: [facility] Address: [address] [place] [address] Performed By: #### B MP #### [phone] IMMATURE GRAN % 0.4 % Normal [facility] Comment on above: Order Comment: Speci men Type: BLOOD SPECIMENOrdering Facility: [facility] Address: [address] [place] [address] Performed By: #### B MP #### [place] [phone] IMMATURE GRAN ABS 0.03 k/uL Normal <0.10 [facility] Comment on above: Order Comment: Speci men Type: BLOOD SPECIMENOrdering Facility: [facility] Address: [address] [place] [address] Performed By: #### B MP #### [place] [phone] Lymphocytes (Bld) [#/Vol] 1.47 10*3/uL Normal 1.00-4.00 [facility] Comment on above: Order Comment: Speci men Type: BLOOD SPECIMENOrdering Facility: [facility] Address: [address] [place] [address] Performed By: #### B MP #### [place] [phone] Lymphocytes/100 WBC (Bld) 22.0 % Normal [facility] Comment on above: Order Comment: Speci men Type: BLOOD SPECIMENOrdering Facility: [facility] Address: [address] [place] [address] Performed By: #### B MP #### [phone] MCH (RBC) [Entitic mass] 29.9 pg Normal 26.0-34.0 [facility] Comment on above: Order Comment: Speci men Type: BLOOD SPECIMENOrdering Facility: [facility] Address: [address] [place] [address] Performed By: #### B MP #### [place] [phone] MCHC (RBC) [Mass/Vol] 33.8 g/dL Normal 30.5-36.0 [facility] Comment on above: Order Comment: Speci men Type: BLOOD SPECIMENOrdering Facility: [facility] Address: [address] [place] [address] Performed By: #### B MP #### [place] [phone] MCV (RBC) [Entitic vol] 88.6 fL Normal 80.0-100.0 [facility] Comment on above: Order Comment: Speci men Type: BLOOD SPECIMENOrdering Facility: [facility] Address: [address] [place] [address] Performed By: #### B MP #### [place] [phone] Monocytes (Bld) [#/Vol] 0.50 10*3/uL Normal <0.87 [facility] Comment on above: Order Comment: Speci men Type: BLOOD SPECIMENOrdering Facility: [facility] Address: [address] [place] [address] Performed By: #### B MP #### [phone] Monocytes/100 WBC (Bld) 7.5 % Normal [facility] Comment on above: Order Comment: Speci men Type: BLOOD SPECIMENOrdering Facility: [facility] Address: [address] [place] [address] Performed By: #### B MP #### [place] [phone] Neutrophils (Bld) [#/Vol] 4.08 10*3/uL Normal 1.45-7.50 [facility] Comment on above: Order Comment: Speci men Type: BLOOD SPECIMENOrdering Facility: [facility] Address: [address] [place] [address] Performed By: #### B MP #### [place] [phone] Neutrophils/100 WBC (Bld) 61.2 % Normal [facility] Comment on above: Order Comment: Speci men Type: BLOOD SPECIMENOrdering Facility: [facility] Address: [address] [place] [address] Performed By: #### B MP #### [phone] Nucleated RBC (Bld) [#/Vol] 10*3/uL Normal <0.01 [facility] Comment on above: Order Comment: Speci men Type: BLOOD SPECIMENOrdering Facility: [facility] Address: [address] [place] [address] Performed By: #### B MP #### [phone] Nucleated RBC/100 WBC (Bld) [Ratio] 0.0 /100 WBC Normal [facility] Comment on above: Order Comment: Speci men Type: BLOOD SPECIMENOrdering Facility: [facility] Address: [address] [place] [address] Performed By: #### B MP #### [phone] Platelet mean volume (Bld) [Entitic vol] 8.9 fL Low 9.0-12.7 [facility] Comment on above: Order Comment: Speci men Type: BLOOD SPECIMENOrdering Facility: [facility] Address: [address] [place] [address] Performed By: #### B MP #### [place] [phone] Platelets (Bld) [#/Vol] 455 10*3/uL High 150-400 [facility] Comment on above: Order Comment: Speci men Type: BLOOD SPECIMENOrdering Facility: [facility] Address: [address] [place] [address] Performed By: #### B MP #### [place] [address] RBC (Bld) [#/Vol] 3.51 10*6/uL Low 3.90-5.20 [facility] Comment on above: Order Comment: Speci men Type: BLOOD SPECIMENOrdering Facility: [facility] Address: [address] [place] [address] Performed By: #### B MP #### [place] [phone] WBC (Bld) [#/Vol] 6.68 10*3/uL Normal 3.70-11.00 [facility] Comment on above: Order Comment: Speci men Type: BLOOD SPECIMENOrdering Facility: [facility] Address: [address] [place] [address] Performed By: #### B MP #### [place] [address] CNDSon 04-05-2022 CNDS HNO ID: [id number] Author: Jessi Sheets APRN.LINING CLOSER Service: Colorectal Author Type: Nurse Practitioner Type: Discharge Summary Filed: 04/05/2022 11:10 AM Note Text: ----- Attestation signed by Mary Obrien MD at 04/05/2022 12:54 PM [facility] STAFF PHYSICIAN NOTE OF PERSONAL [...] of the summary. CONSULTING TEAMS DURING HOSPITALIZATION: [facility] Treatment Team: Attending Provider: Mary [...] only. Pain controlled with TAPs and a HEARTH FEEDER. Remained nauseated. POD4 re-advanced to full liquids [...] by mo (more content not included)... Normal [facility] Magnesium SerPl-mCncon 04-05 Magnesium [Mass/Vol] 2.0 mg/dL Normal 1.7-2.3 [facility] Comment on above: Order Comment: Speci men Type: BLOOD SPECIMEN [facility]ing [facility]: [facility] Address: [facility] [place] [address] Performed By: #### 5 8410-2 #### [facility] CLIA [id number] OF [facility] NURSING PROGon 04-05-2022 NURSING PROG HNO ID: [id number] Author: Liliana Mayer RN Service: ? 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 This note was completed by: Liliana Mayer [facility] NURSING PROG HNO ID: [id number] Author: Liliana Mayer RN Service: ? Author [...] This note was completed by: Liliana Mayer [facility] NURSING PROG HNO ID: [id number] Author: Eagle Gu RN Service: ? Author Type: Registered Nurse Type: Nursing Progress Note Filed: 04/04/2022 10:58 PM Note Text: Nursing Progress Note Patient Name: Mary Leal Patient Location: [id number] Daily Note:04/04/22 2140 Pt is alert and oriented x3. Pt mabulating independently. Surgical sites intact. Pt refusing IVF, pt states she drinks enough water. This note was completed by: Eagle Gu [facility] NUTRITIONon 04-05-2022 NUTRITION HNO ID: [id number] Author: Merced Morales DTR Service: Nutrition Therapy Author Type: Aerodynamicist Type: Nutrition Filed: 04/05/2022 10:42 AM Note Text: NUTRITION THERAPY SLURRY TANK OPERATOR NOTE SERVICE DATE: 04/05/2022 SERVICE TIME: 9:45 AM Visit Type: Length of Stay Plan of Care: Supplements: Impact AR Follow-Up: Tech Reassessment Nursing Admission Assessment [...] April 05, 2022 TIME: 9:54 AM Normal [facility] Phosphate SerPl-mCncon 04-05 Phosphate [Mass/Vol] 4.6 mg/dL Normal 2.7-4.8 [facility] Comment on above: Order Comment: Speci men Type: BLOOD SPECIMEN [facility] Address: [address] [place] [address] Performed By: #### 5 8410-2 #### [facility] CLIA [id number] [place] [id number] [place] Basic metabolic 2000 panelon 04-04-2022 Anion gap [Moles/Vol] 10 mmol/L Normal 9-18 [facility] Comment on above: Order Comment: Leanne terry Type: BLOOD SPECIMENOrdering Facility: [facility] Address: [address] [place] [address] Performed By: #### 2 4321-2, , 2776-11 ####[facility] [id number] [place] [id number] [place] Calcium [Mass/Vol] 8.9 mg/dL Normal 8.5-10.2 [facility] Comment on above: Order Comment: Speci men Type: BLOOD SPECIMENOrdering Facility: [facility] Address: [address] [place] [address] Performed By: #### 2 4321-2, , 2776-11 ####[facility] [id number] [place] [id number] [place] Chloride [Moles/Vol] 104 mmol/L Normal 97-105 [facility] Comment on above: Order Comment: Speci men Type: BLOOD SPECIMENOrdering Facility: [facility] Address: [address] [place], [place] [address] Performed By: #### 2 4321-2, , 2776-11 ####[facility] [id number] [place] [id number] [place] CO2 [Moles/Vol] 26 mmol/L Normal 22-30 [facility] Comment on above: Order Comment: Speci men Type: BLOOD SPECIMENOrdering Facility: [facility] Address: [address] [place] [address] Performed By: #### 2 4321-2, , 2776-11 ####[facility] [id number] [place] [id number] [place] [facility] Creatinine [Mass/Vol] 0.56 mg/dL Low 0.58-0.96 [facility] Comment on above: Order Comment: Speci men Type: BLOOD SPECIMENOrdering Facility: [facility] Address: [address] [place] [address] Performed By: #### 2 4321-2, , 2776-11 ####[facility] [id number] [address] ESTIMATED GLOMERULAR FILTRATION RATE 112 mL/min/1.73m??? Normal >=60 [facility] Comment on above: Order Comment: Speci men Type: BLOOD SPECIMENOrdering Facility: [facility] Address: [address] [place] [address] Result Comment: Mary mated Glomerular Filtration Rate [...] #### 2 4321-2, , 2776-11 ####[facility] [id number] [place] [id number] [place] Glucose [Mass/Vol] 112 mg/dL High 74-99 [facility] Comment on above: Order Comment: Speci men Type: BLOOD SPECIMENOrdering Facility: [facility] Address: [address] [place], [place] [address] Result Comment: The Citizen [place] Diabetes Association (ADA) provides guidance for cutoff [...] Standards of Medical Care in Diabetes 2016, Citizen [place] Diabetes Association. Diabetes Care. 2016.39(Suppl 1). Performed By: #### 2 4321-2, , 2776-11 ####[facility] [id number] [place] [id number] [place] Potassium [Moles/Vol] 3.9 mmol/L Normal 3.7-5.1 [facility] Comment on above: Order Comment: Everettei men Type: BLOOD SPECIMENOrdering Facility: [facility] Address: [address] [place], [place] [address] Performed By: #### 2 4321-2, , 2776-11 ####[facility] [id number] [place] [id number] [place] Sodium [Moles/Vol] 140 mmol/L Normal 136-144 [facility] Comment on above: Order Comment: Speci men Type: BLOOD SPECIMENOrdering Facility: [facility] Address: [address] [place], [place] [address] Performed By: #### 2 4321-2, , 2776-11 ####[facility]ORYCLIA [id number] [place] [address] [place] Urea nitrogen [Mass/Vol] 3 mg/dL Low 7- [facility] Comment on above: Order Comment: Speci men Type: BLOOD SPECIMENOrdering Facility: [facility] Address: [address] [place] [address] Performed By: #### 2 4321-2, 44372-9, 2777-1 ####[facility] [id number] [place] [address] [place] CBC W Auto Differential pane l (Bld)on 04-04-2022 Basophils (Bld) [#/Vol] 0.03 10*3/uL Normal <0.11 [facility] Comment on above: Order Comment: Speci men Type: BLOOD SPECIMEN [facility] Address: [address] [place] [address] Performed By: #### 5 7021-8 #### [facility] CLIA [id number] [address] [place] [address] [place] Basophils/100 WBC (Bld) 0.5 % Normal [facility] Comment on above: Order Comment: Speci men Type: BLOOD SPECIMEN [facility] Facility: [facility] Address: [address] [place] [address] Performed By: #### 5 7021-8 #### [facility] CLIA [id number] [address] [place] [address] [place] Differential cell count method Nom (Bld) Auto Normal [facility] Comment on above: Order Comment: Speci men Type: BLOOD SPECIMEN [facility]ing Facility: [facility] Address: [address] [place] [address] Performed By: #### 5 7021-8 #### [facility] CLIA [id number] [address] [place] [address] [place] Eosinophils (Bld) [#/Vol] 0.48 10*3/uL High <0.46 [facility] Comment on above: Order Comment: Speci men Type: BLOOD SPECIMEN Ordering Facility: [facility] Address: [address] [place], [place] [address] Performed By: #### 5 7021-8 #### [facility] CLIA [id number] [address] [place] [address] [place] Eosinophils/100 WBC (Bld) 7.7 % Normal [facility] Comment on above: Order Comment: Speci men Type: BLOOD SPECIMEN Ordering Facility: [facility] Address: [address] [place] [address] Performed By: #### 5 7021-8 #### [facility] CLIA [id number] [address] [place] [address] [place] Erythrocyte distribution width (RBC) [Ratio] 12.7 % Normal 11.5-15.0 [facility] Comment on above: Order Comment: Speci men Type: BLOOD SPECIMEN [facility]ing Facility: [facility] Address: [address] [place] [address] Performed By: #### 5 7021-8 #### [facility] CLIA [id number] [address] [place] [address] [place] Hematocrit (Bld) [Volume fraction] 31.2 % Low 36.0-46.0 [facility] Comment on above: Order Comment: Speci men Type: BLOOD SPECIMEN Ordering Facility: [facility] Address: [address] [place] [address] Performed By: #### 5 7021-8 #### [facility] CLIA [id number] [address] [place] [address] [place] Hemoglobin (Bld) [Mass/Vol] 10.7 g/dL Low 11.5-15.5 [facility] Comment on above: Order Comment: Speci men Type: BLOOD SPECIMEN Ordering Facility: [facility] Address: [address] [place] [address] Performed By: #### 5 7021-8 #### [facility] CLIA [id number] [address] [place] [address] [place] IMMATURE GRAN % 0.5 % Normal [facility] Comment on above: Order Comment: Speci men Type: BLOOD SPECIMEN [facility]ing Facility: [facility] Address: [address] [place] [address] Performed By: #### 5 7021-8 #### [facility] CLIA [id number] [address] [place] [address] [place] IMMATURE GRAN ABS 0.03 k/uL Normal <0.10 [facility] Comment on above: Order Comment: Speci men Type: BLOOD SPECIMEN [facility]ing Facility: [facility] Address: [address] [place] [address] Performed By: #### 5 7021-8 #### [facility] CLIA [id number] [address] [place] [address] [place] Lymphocytes (Bld) [#/Vol] 1.13 10*3/uL Normal 1.00-4.00 [facility] Comment on above: Order Comment: Speci men Type: BLOOD SPECIMEN Ordering Facility: [facility] Address: [address] [place] [address] Performed By: #### 5 7021-8 #### [facility] CLIA [id number] [address] [place] [address] Lymphocytes/100 WBC (Bld) 18.2 % Normal [facility] Comment on above: Order Comment: Speci men Type: BLOOD SPECIMEN Ordering Facility: [facility] Address: [address] [place] [address] Performed By: #### 5 7021-8 #### [facility] CLIA [id number] [address] [place] [address] [place] MCH (RBC) [Entitic mass] 29.9 pg Normal 26.0-34.0 [facility] Comment on above: Order Comment: Speci men Type: BLOOD SPECIMEN Ordering Facility: [facility] Address: [address] [place] [address] Performed By: #### 5 7021-8 #### [facility] CLIA [id number] [address] [place] [address] [place] MCHC (RBC) [Mass/Vol] 34.3 g/dL Normal 30.5-36.0 [facility] Comment on above: Order Comment: Speci men Type: BLOOD SPECIMEN [facility]ing Facility: [facility] Address: [address] [place] [address] Performed By: #### 5 7021-8 #### [facility] CLIA [id number] [address] [place] [address] [place] MCV (RBC) [Entitic vol] 87.2 fL Normal 80.0-100.0 [facility] Comment on above: Order Comment: Speci men Type: BLOOD SPECIMEN Ordering Facility: [facility] Address: [address] [place] [address] Performed By: #### 5 7021-8 #### [facility] CLIA [id number] [address] [place] [address] [place] Monocytes (Bld) [#/Vol] 0.36 10*3/uL Normal <0.87 [facility] Comment on above: Order Comment: Speci men Type: BLOOD SPECIMEN Ordering Facility: [facility] Address: [address] [place] [address] Performed By: #### 5 7021-8 #### [facility] CLIA [id number] [address] [place] [address] [place] Monocytes/100 WBC (Bld) 5.8 % Normal [facility] Comment on above: Order Comment: Speci men Type: BLOOD SPECIMEN Ordering Facility: [facility] Address: [address] [place] [address] Performed By: #### 5 7021-8 #### [facility] CLIA [id number] [address] [place] [address] [place] Neutrophils (Bld) [#/Vol] 4.18 10*3/uL Normal 1.45-7.50 [facility] Comment on above: Order Comment: Speci men Type: BLOOD SPECIMEN Ordering Facility: [facility] Address: [address] [place] [address] Performed By: #### 5 7021-8 #### [facility] CLIA [id number] [address] [place] [address] [place] Neutrophils/100 WBC (Bld) 67.3 % Normal [facility] Comment on above: Order Comment: Speci men Type: BLOOD SPECIMEN Ordering Facility: [facility] Address: [address] [place] [address] Performed By: #### 5 7021-8 #### [facility] CLIA [id number] [address] [place] [address] [place] Nucleated RBC (Bld) [#/Vol] 10*3/uL Normal <0.01 [facility] Comment on above: Order Comment: Speci men Type: BLOOD SPECIMEN Ordering Facility: [facility] Address: [address] [place] [address] Performed By: #### 5 7021-8 #### [facility] CLIA [id number] [address] [place] [address] [place] Nucleated RBC/100 WBC (Bld) [Ratio] 0.0 /100 WBC Normal [facility] Comment on above: Order Comment: Speci men Type: BLOOD SPECIMEN Ordering Facility: [facility] Address: [address] [place], [place] [address] Performed By: #### 5 7021-8 #### [facility] CLIA [id number] [address] [place] [address] [place] Platelet mean volume (Bld) [Entitic vol] 8.7 fL Low 9.0-12.7 [facility] Comment on above: Order Comment: Speci men Type: BLOOD SPECIMEN Ordering Facility: [facility] Address: [address] [place], [place] [address] Performed By: #### 5 7021-8 #### [facility] CLIA [id number] [address] [place] [address] [place] Platelets (Bld) [#/Vol] 436 10*3/uL High 150-400 [facility] Comment on above: Order Comment: Speci men Type: BLOOD SPECIMEN Ordering Facility: [facility] Address: [address] [place] [address] Performed By: #### 5 7021-8 #### [facility] CLIA [id number] [address] [place] [address] [place] RBC (Bld) [#/Vol] 3.58 10*6/uL Low 3.90-5.20 [facility] Comment on above: Order Comment: Speci men Type: BLOOD SPECIMEN Ordering Facility: [facility] Address: [address] [place] [address] Performed By: #### 5 7021-8 #### [facility] IA [id number] [address] [place] [address] OF [facility] WBC (Bld) [#/Vol] 6.21 10*3/uL Normal 3.70-11.00 [facility] Comment on above: Order Comment: Speci men Type: BLOOD SPECIMEN Ordering Facility: [facility] Address: [address] [place] [address] Performed By: #### 5 7021-8 #### [facility] [place] [id number] [address] [place] [address] [facility] [place] Magnesium SerPl-mCncon 04-04 Magnesium [Mass/Vol] 2.1 mg/dL Normal 1.7-2.3 [facility] Comment on above: Order Comment: Speci men Type: BLOOD SPECIMENOrdering Facility: [facility] Address: [address] [place] [address] Performed By: #### 2 4321-2, 47916-9, 2777-1 ####[facility] [id number] [place] [address] [place] NURSING PROGon 04-04-2022 NURSING PROG HNO ID: [id number] Author: Juan Crowley RN Service: Nursing Author Type: Registered Nurse Type: Nursing Progress Note Filed: 04/04/2022 7:47 PM Note Text: Nursing Progress Note Patient Name: Mary Leal Patient [address]: [address] Daily Note:Patient refusing further IVF. This note was completed by: [facility] NURSING PROG HNO ID: [id number] Author: Juan Crowley, MAKI Service: Nursing Author Type: Registered Nurse Type: Nursing Progress Note Filed: 04/04/2022 11:11 AM Note Text: Nursing Progress Note Patient Name: Mary Leal Patient Location: / Daily Note: Patient up in chair and up ambulating in hallway with steady gait. VSS. RA POx. IVF as ordered. 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 Dressing to old ostomy site CDI. Abdomen soft and tender. Patient states, feeling much better . Diet advanced, yet patient did not take in 25% of tray. Patient informed RN that I am leaving today. Do what you gotta do. I can do all of this at home . Dr Lamas paged and notified, but post call. 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 Will continue to monitor. Call light in reach. This note was completed by: [facility] Phosphate SerPl-mCncon 04-04 Phosphate [Mass/Vol] 3.2 mg/dL Normal 2.7-4.8 [facility] Comment on above: Order Comment: Speci men Type: BLOOD SPECIMENOrdering Facility: [facility] Address: [address] [place], [place] [id number] Performed By: #### 2 4321-2, 70332-1, 2777-1 ####[facility] [id number] [address] STATES OF [facility] ALLIED HEALTHon 04-03-2022 ALLIED HEALTH HNO ID: [id number] Author: Carmen Daley, MALAIKA Service: ? Author Type: Court Abstractor Type: Allied Health Filed: 04/03/2022 5:35 PM [...] MALAIKA Martinez April 03, 2022 5:35 PM Normal [facility] Basic metabolic 2000 panelon 04-03-2022 Anion gap [Moles/Vol] 10 mmol/L Normal 9-18 [facility] Comment on above: Order Comment: Speci men Type: BLOOD SPECIMENOrdering Facility: [facility] Address: [address] [place] [address] Performed By: #### B MP #### [place] [address] Calcium [Mass/Vol] 8.4 mg/dL Low 8.5-10.2 [facility] Comment on above: Order Comment: Speci men Type: BLOOD SPECIMENOrdering Facility: [facility] Address: [address] [place] [address] Performed By: #### B MP #### [place] [address] Chloride [Moles/Vol] 103 mmol/L Normal 97-105 [facility] Comment on above: Order Comment: Speci men Type: BLOOD SPECIMENOrdering Facility: [facility] Address: [address] [place] [address] Performed By: #### B MP #### [place] [phone] CO2 [Moles/Vol] 25 mmol/L Normal 22-30 [facility] Comment on above: Order Comment: Speci men Type: BLOOD SPECIMENOrdering Facility: [facility] Address: [address] [place] [address] Performed By: #### B MP #### [place] [phone] Creatinine [Mass/Vol] 0.60 mg/dL Normal 0.58-0.96 [facility] Comment on above: Order Comment: Speci men Type: BLOOD SPECIMENOrdering Facility: [facility] Address: [address] [place] [address] Performed By: #### B MP #### [place] [phone] ESTIMATED GLOMERULAR FILTRATION RATE 110 mL/min/1.73m??? Normal >=60 [facility] Comment on above: Order Comment: Everettei men Type: BLOOD SPECIMENOrdering Facility: [facility] Address: [address] [place] [address] Result Comment: Mary mated Glomerular Filtration Rate [...] GFR. Performed By: #### B MP #### [place] [phone] Glucose [Mass/Vol] 106 mg/dL High 74-99 [facility] Comment on above: Order Comment: Leanne harrison Type: BLOOD SPECIMENOrdering Facility: [facility] Address: [address] [place] [address] Result Comment: [place] Diabetes Association (ADA) provides guidance for cutoff [...] Standards of Medical Care in Diabetes 2016, [place] Diabetes Association. Diabetes Care. 2016.39(Suppl 1). Performed By: #### B MP #### [place] [phone] Potassium [Moles/Vol] 3.3 mmol/L Low 3.7-5.1 [facility] Comment on above: Order Comment: Leanne terry Type: BLOOD SPECIMENOrdering Facility: [facility] Address: [address] [place] [address] Performed By: #### B MP #### [place] [phone] Sodium [Moles/Vol] 138 mmol/L Normal 136-144 [facility] Comment on above: Order Comment: Leanne terry Type: BLOOD SPECIMENOrdering Facility: [facility] Address: [address] [place] [address] Performed By: #### B MP #### [place] [phone] Urea nitrogen [Mass/Vol] 4 mg/dL Low 7-21 [facility] Comment on above: Order Comment: Everettei men Type: BLOOD SPECIMENOrdering Facility: [facility] Address: [address] [place] [address] Performed By: #### B MP #### [place] [phone] CBC W Auto Differential pane l (Bld)on 04-03-2022 Basophils (Bld) [#/Vol] 0.03 10*3/uL Normal <0.11 [facility] Comment on above: Order Comment: Everettei harrison Type: BLOOD SPECIMENOrdering Facility: [facility] Address: [address] [place] [address] Performed By: #### B MP #### [place] [phone] Basophils/100 WBC (Bld) 0.4 % Normal [facility] Comment on above: Order Comment: Speci men Type: BLOOD SPECIMENOrdering Facility: [facility] Address: [address] [place] [address] Performed By: #### B MP #### [place] [phone] Differential cell count method Nom (Bld) Auto Normal [facility] Comment on above: Order Comment: Speci men Type: BLOOD SPECIMENOrdering Facility: [facility] Address: [address] [place] [address] Performed By: #### B MP #### [place] [phone] Eosinophils (Bld) [#/Vol] 0.48 10*3/uL High <0.46 [facility] Comment on above: Order Comment: Speci men Type: BLOOD SPECIMENOrdering Facility: [facility] Address: [address] [place] [address] Performed By: #### B MP #### [address] Eosinophils/100 WBC (Bld) 6.5 % Normal [facility] Comment on above: Order Comment: Speci men Type: BLOOD SPECIMENOrdering Facility: [facility] Address: [address] [place] [address] Performed By: #### B MP #### [place] [phone] Erythrocyte distribution width (RBC) [Ratio] 12.5 % Normal 11.5-15.0 [facility] Comment on above: Order Comment: Speci men Type: BLOOD SPECIMENOrdering Facility: [facility] Address: [address] [place] [address] Performed By: #### B MP #### [place] [phone] Hematocrit (Bld) [Volume fraction] 29.5 % Low 36.0-46.0 [facility] Comment on above: Order Comment: Speci men Type: BLOOD SPECIMENOrdering Facility: [facility] Address: [address] [place] [address] Performed By: #### B MP #### [id number] Hemoglobin (Bld) [Mass/Vol] 10.2 g/dL Low 11.5-15.5 [facility] Comment on above: Order Comment: Speci men Type: BLOOD SPECIMENOrdering Facility: [facility] Address: [address] [place] [address] Performed By: #### B MP #### [place] [phone] IMMATURE GRAN % 0.5 % Normal [facility] Comment on above: Order Comment: Speci men Type: BLOOD SPECIMENOrdering Facility: [facility] Address: [address] [place] [address] Performed By: #### B MP #### [place] [phone] IMMATURE GRAN ABS 0.04 k/uL Normal <0.10 [facility] Comment on above: Order Comment: Speci men Type: BLOOD SPECIMENOrdering Facility: [facility] Address: [address] [place] [address] Performed By: #### B MP #### [place] [phone] Lymphocytes (Bld) [#/Vol] 1.11 10*3/uL Normal 1.00-4.00 [facility] Comment on above: Order Comment: Speci men Type: BLOOD SPECIMENOrdering Facility: [facility] Address: [address] [place] [address] Performed By: #### B MP #### [place] [phone] Lymphocytes/100 WBC (Bld) 15.0 % Normal [facility] Comment on above: Order Comment: Speci men Type: BLOOD SPECIMENOrdering Facility: [facility] Address: [address] [place] [address] Performed By: #### B MP #### [place] [phone] MCH (RBC) [Entitic mass] 30.1 pg Normal 26.0-34.0 [facility] Comment on above: Order Comment: Speci men Type: BLOOD SPECIMENOrdering Facility: [facility] Address: [address] [place] [address] Performed By: #### B MP #### [place] [phone] MCHC (RBC) [Mass/Vol] 34.6 g/dL Normal 30.5-36.0 [facility] Comment on above: Order Comment: Speci men Type: BLOOD SPECIMENOrdering Facility: [facility] Address: [address] [place] [address] Performed By: #### B MP #### [place] [phone] MCV (RBC) [Entitic vol] 87.0 fL Normal 80.0-100.0 [facility] Comment on above: Order Comment: Speci men Type: BLOOD SPECIMENOrdering Facility: [facility] Address: [address] [place] [address] Performed By: #### B MP #### [place] [phone] Monocytes (Bld) [#/Vol] 0.46 10*3/uL Normal <0.87 [facility] Comment on above: Order Comment: Speci men Type: BLOOD SPECIMENOrdering Facility: [facility] Address: [address] [place] [address] Performed By: #### B MP #### [place] [phone] Monocytes/100 WBC (Bld) 6.2 % Normal [facility] Comment on above: Order Comment: Speci men Type: BLOOD SPECIMENOrdering Facility: [facility] Address: [address] [place] [address] Performed By: #### B MP #### [place] [phone] Neutrophils (Bld) [#/Vol] 5.27 10*3/uL Normal 1.45-7.50 [facility] Comment on above: Order Comment: Speci men Type: BLOOD SPECIMENOrdering Facility: [facility] Address: [address] [place] [address] Performed By: #### B MP #### [place] [phone] Neutrophils/100 WBC (Bld) 71.4 % Normal [facility] Comment on above: Order Comment: Speci men Type: BLOOD SPECIMENOrdering Facility: [facility] Address: [address] [place] [address] Performed By: #### B MP #### [place] [phone] Nucleated RBC (Bld) [#/Vol] 10*3/uL Normal <0.01 [facility] Comment on above: Order Comment: Speci men Type: BLOOD SPECIMENOrdering Facility: [facility] Address: [address] [place] [address] Performed By: #### B MP #### [place] [phone] Nucleated RBC/100 WBC (Bld) [Ratio] 0.0 /100 WBC Normal [facility] Comment on above: Order Comment: Speci men Type: BLOOD SPECIMENOrdering Facility: [facility] Address: [address] [place] [address] Performed By: #### B MP #### [place] [phone] Platelet mean volume (Bld) [Entitic vol] 8.6 fL Low 9.0-12.7 [facility] Comment on above: Order Comment: Speci men Type: BLOOD SPECIMENOrdering Facility: [facility] Address: [address] [place] [address] Performed By: #### B MP #### [place] [phone] Platelets (Bld) [#/Vol] 342 10*3/uL Normal 150-400 [facility] Comment on above: Order Comment: Speci men Type: BLOOD SPECIMENOrdering Facility: [facility] Address: [address] [place] [address] Performed By: #### B MP #### [place] [phone] RBC (Bld) [#/Vol] 3.39 10*6/uL Low 3.90-5.20 [facility] Comment on above: Order Comment: Speci men Type: BLOOD SPECIMENOrdering Facility: [facility] Address: [address] [place] [address] Performed By: #### B MP #### [place] [phone] WBC (Bld) [#/Vol] 7.39 10*3/uL Normal 3.70-11.00 [facility] Comment on above: Order Comment: Speci men Type: BLOOD SPECIMENOrdering Facility: [facility] Address: [address] [place] [address] Performed By: #### B MP #### [place] [phone] CONSULT PROGon 04-03-2022 CONSULT PROG HNO ID: [id number] Author: Sarwat Huddleston PA-C Service: Pain Management Author Type: Physician Relay Motorman Type: Consult Progress Note Filed: 04/03/2022 8:39 [...] level is 7/10. TAPS Ropi 0.1% at 0/15/30/2?each 04/01/22 At this time she report most [...] appears comf (more content not included)... Normal [facility] CT ABD/PEL W IVCONon 022 CT ABD/PEL [...] Lower thorax: Visualized lung bases are clear. Maintenance Of Way Foreman (topogram) images: No additional findings. IMPRESSION: Postsurgical [...] collection is present in the lower pelvis Web Site Admin: PSCB Transcribe Date/Time: Apr 03 2022 9:00P Dictated by : SHELBY ESPINOSA MD This examination was interpreted and the report reviewed and electronically signed by: SHELBY ESPINOSA MD on Apr 03 2022 9:12PM EST [id number] [facility] Magnesium SerPl-mCncon 04-03 Magnesium [Mass/Vol] 1.6 mg/dL Low 1.7-2.3 [facility] Comment on above: Order Comment: Speci men Type: BLOOD SPECIMENOrdering Facility: [facility] Address: [address] [place], [place] [id number] Performed By: #### B MP #### [place] [address] NURSING PROGon 04-03-2022 NURSING PROG HNO ID: [id number] Author: Annette Ford RN Service: ? Author Type: Registered Nurse Type: Nursing Progress Note Filed: 04/03/2022 9:39 PM Note Text: Nursing Progress Note Patient Name: Mary Leal Patient Location: [address]/LP8D-26 Daily Note: 2129: Pt declined to have all oral medications. They just go right through me. I cannot take them. . Made RN aware. This note was completed by: Annette Ford [facility] NURSING PROG HNO ID: [id number] Author: Juan Crowley RN Service: Nursing Author Type: Registered Nurse Type: Nursing Progress Note Filed: 04/03/2022 2:51 PM Note Text: Nursing Progress Note Patient Name: Mary Leal Patient [id number]-55 Daily Note:Patient unable to tolerate powder form of potassium due to nausea. Patient unable to tolerate IV form, it feels like It's paralyzing my arm . Attempted to dilute boluses and lower rates with no success. SR paged with events [phone]). Awaiting further orders. This note was completed by: [facility] ID: [id number] Author: Juan Crowley RN Service: Nursing Author Type: Registered Nurse Type: Nursing Progress Note Filed: 04/03/2022 11:33 AM Note Text: Nursing Progress Note Patient Name: Mary Leal Patient Location: PK3B22/HP7B-88 Daily Note: Patient Up independently in room and in hallway. IVF infusing as ordered. B/L Tap Blocks discontinued and removed by PA. Old ostomy dressing changed. Scant amount of drainage on dressing. Fresh ABD with tape applied. 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 BS Hypoactive. No flatus per [...] monitor. This note was completed by: Juan [facility] NURSING PROG HNO ID: [id number] Author: Chava Remy RN Service: PICC Team [...] 03, 2022 TIME: 8:37 AM PAGER/CONTACT #: [facility] NURSING PROG HNO ID: [id number] Author: Kev Leone RN Service: ? Author Type: Registered Nurse Type: Nursing Progress Note Filed: 04/03/2022 3:50 AM Note Text: Nursing Progress Note Patient Name: Mary Leal Patient Location: [place] [address]/[place] [address] Daily Note: 2100: Pt refusing all PO meds at this time, states she's concerned that she's not digesting them properly. Paan currently being controlled with bilateral blocks and PRN IV pain medication. This note was completed by: Kev Leone [facility] Phosphate SerPl-mCncon 04-03 Phosphate [Mass/Vol] 3.3 mg/dL Normal 2.7-4.8 [facility] Comment on above: Order Comment: Speci men Type: BLOOD SPECIMENOrdering Facility: [facility] Address: [address] [place] [phone] Performed By: #### B MP #### [place] [id number] [place] [id number] ALLIED HEALTHon 04-02-2022 ALLIED HEALTH HNO ID: [id number] Author: RT Ban(R) Service: Radiology Author Type: [...] Ban(R) April 02, 2022 9:12 AM Normal [facility] CONSULT PROGon 04-02-2022 CONSULT PROG HNO ID: [id number] Author: Sarwat Huddleston PA-C Service: Pain Management Author Type: Physician Relay Motorman Type: Consult Progress Note Filed: 04/02/2022 9:00 [...] 29.3 5 (more content not included)... Normal [facility] NURSING PROGon 04-02-2022 NURSING PROG HNO ID: [id number] Author: Juan Crowley, RN Service: Nursing Author Type: Registered Nurse Type: Nursing Progress Note Filed: 04/02/2022 1:23 PM Note Text: Nursing Progress Note Patient Name: Mary Leal Patient Location: [place] [address]/AS9J-05 Daily Note: Patient AANDOx3. VSS. RA POx. D51/2NS at 75 ml/hr. B/L Tap Block dressings CDI. Old ostomy with ABD and tape, CDI. Transverse and lap sites ELENI with glue. NPO status. Medicated with IV [...] This note was completed by: Juan Crowley [facility] XR ABDOMEN 1V SUPINEon 04-02 XR [...] may be of help for further evaluation. Web Site Admin: CAPRI Transcribe Date/Time: Apr 02 2022 9:16A Dictated by : JOAQUIN BRYANT MD This examination was interpreted and the report reviewed and electronically signed by: JOAQUIN BRYANT MD on Apr 02 2022 9:19AM EST [id number] Normal [facility] Basic metabolic 2000 panelon 04-01-2022 Anion gap [Moles/Vol] 9 mmol/L Normal 9-18 [facility] Comment on above: Order Comment: Speci men Type: BLOOD SPECIMENOrdering Facility: [facility] Address: [address] [place] [address] Performed By: #### B MP #### [place] [phone] Calcium [Mass/Vol] 7.9 mg/dL Low 8.5-10.2 [facility] Comment on above: Order Comment: Speci men Type: BLOOD SPECIMENOrdering Facility: [facility] Address: [address] [place] [address] Performed By: #### B MP #### [place] [phone] Chloride [Moles/Vol] 106 mmol/L High 97-105 [facility] Comment on above: Order Comment: Speci men Type: BLOOD SPECIMENOrdering Facility: [facility] Address: [address] [place] [address] Performed By: #### B MP #### [place] [phone] CO2 [Moles/Vol] 26 mmol/L Normal 22-30 [facility] Comment on above: Order Comment: Speci men Type: BLOOD SPECIMENOrdering Facility: [facility] Address: [address] [place] [address] Performed By: #### B MP #### [place] [phone] Creatinine [Mass/Vol] 0.68 mg/dL Normal 0.58-0.96 [facility] Comment on above: Order Comment: Speci men Type: BLOOD SPECIMENOrdering Facility: [facility] Address: [address] [place] [id number] Performed By: #### B MP #### [place] [id number] [place] [address] ESTIMATED GLOMERULAR FILTRATION RATE 107 mL/min/1.73m??? Normal >=60 [facility] Comment on above: Order Comment: Leanne harrison Type: BLOOD SPECIMENOrdering Facility: [facility] Address: [address] [place], [place] [address] Result Comment: Mary mated Glomerular Filtration Rate [...] GFR. Performed By: #### B MP #### [place] [address] Glucose [Mass/Vol] 99 mg/dL Normal 74-99 [facility] Comment on above: Order Comment: Leanne harrison Type: BLOOD SPECIMENOrdering Facility: [facility] Address: [address] [place] [address] Result Comment: The [place] Diabetes Association (ADA) provides guidance for cutoff [...] Standards of Medical Care in Diabetes 2016, [place] Diabetes Association. Diabetes Care. 2016.39(Suppl 1). Performed By: #### B MP #### [place] [id number] [place] [address] Potassium [Moles/Vol] 3.7 mmol/L Normal 3.7-5.1 [facility] Comment on above: Order Comment: Speci men Type: BLOOD SPECIMENOrdering Facility: [facility] Address: [address] [place] [address] Performed By: #### B MP #### [place] [phone] Sodium [Moles/Vol] 141 mmol/L Normal 136-144 [facility] Comment on above: Order Comment: Speci men Type: BLOOD SPECIMENOrdering Facility: [facility] Address: [address] [place] [address] Performed By: #### B MP #### [place] [phone] Urea nitrogen [Mass/Vol] 4 mg/dL Low 7-21 [facility] Comment on above: Order Comment: Speci men Type: BLOOD SPECIMENOrdering Facility: [facility] Address: [address] [place] [address] Performed By: #### B MP #### [place] [phone] CBC panel Auto (Bld)on 04-01 Erythrocyte distribution width (RBC) [Ratio] 12.4 % Normal 11.5-15.0 [facility] Comment on above: Order Comment: Speci men Type: BLOOD SPECIMEN Ordering Facility: [facility] Address: [address] [place] [address] Performed By: #### 5 8410-2 #### [facility] CLIA [id number] [address] [place] [address] OF [facility] Hematocrit (Bld) [Volume fraction] 29.3 % Low 36.0-46.0 [facility] Comment on above: Order Comment: Speci men Type: BLOOD SPECIMEN Ordering Facility: [facility] Address: [address] [place] [address] Performed By: #### 5 8410-2 #### [facility] CLIA [id number] [address] [place] [address] [place] Hemoglobin (Bld) [Mass/Vol] 9.6 g/dL Low 11.5-15.5 [facility] Comment on above: Order Comment: Speci men Type: BLOOD SPECIMEN Ordering Facility: [facility] Address: [address] [place] [address] Performed By: #### 5 8410-2 #### [facility] CLIA [id number] [address] [place] [address] OF [place] MCH (RBC) [Entitic mass] 29.4 pg Normal 26.0-34.0 [facility] Comment on above: Order Comment: Speci men Type: BLOOD SPECIMEN Ordering Facility: [facility] Address: [address] [place] [address] Performed By: #### 5 8410-2 #### [facility] CLIA [id number] [address] [place] [address] STATES OF [facility] MCHC (RBC) [Mass/Vol] 32.8 g/dL Normal 30.5-36.0 [facility] Comment on above: Order Comment: Speci men Type: BLOOD SPECIMEN Ordering Facility: [facility] Address: [address] [place] [address] Performed By: #### 5 8410-2 #### [facility] CLIA [id number] [address] [place] [address] MCV (RBC) [Entitic vol] 89.9 fL Normal 80.0-100.0 [facility] Comment on above: Order Comment: Speci men Type: BLOOD SPECIMEN Ordering Facility: [facility] Address: [address] [place] [address] Performed By: #### 5 8410-2 #### [facility] CLIA [id number] [address] [place] [address] [place] Nucleated RBC (Bld) [#/Vol] 10*3/uL Normal <0.01 [facility] Comment on above: Order Comment: Speci men Type: BLOOD SPECIMEN Ordering Facility: [facility] Address: [address] [place] [address] Performed By: #### 5 8410-2 #### [facility] CLIA [id number] [address] [place] [address] [place] Platelet mean volume (Bld) [Entitic vol] 8.9 fL Low 9.0-12.7 [facility] Comment on above: Order Comment: Speci men Type: BLOOD SPECIMEN Ordering Facility: [facility] Address: [address] [place] [address] Performed By: #### 5 8410-2 #### [facility] CLIA [id number] [address] [place] [address] [place] Platelets (Bld) [#/Vol] 282 10*3/uL Normal 150-400 [facility] Comment on above: Order Comment: Speci men Type: BLOOD SPECIMEN Ordering Facility: [facility] Address: [address] [place] [address] Performed By: #### 5 8410-2 #### [facility] CLIA [id number] [address] [place] [address] [place] RBC (Bld) [#/Vol] 3.26 10*6/uL Low 3.90-5.20 [facility] Comment on above: Order Comment: Speci men Type: BLOOD SPECIMEN Ordering Facility: [facility] Address: [address] [place] [address] Performed By: #### 5 8410-2 #### [facility] CLIA [id number] [address] [place] [address] [place] WBC (Bld) [#/Vol] 7.39 10*3/uL Normal 3.70-11.00 [facility] Comment on above: Order Comment: Speci men Type: BLOOD SPECIMEN Ordering Facility: [facility] Address: [address] [place] [address] Performed By: #### 5 8410-2 #### [facility] CLIA [id number] [place] [address] OF [place] CONSULT PROGon 04-01-2022 CONSULT PROG HNO ID: [id number] Author: Joslyn Jain APRN.KWESI Service: Pain Management [...] 0.67 Sod (more content not included)... Normal [facility] Magnesium SerPl-mCncon 04-01 Magnesium [Mass/Vol] 1.7 mg/dL Normal 1.7-2.3 [facility] Comment on above: Order Comment: Speci men Type: BLOOD SPECIMENOrdering Facility: [facility] Address: [address] [place], [place] [phone] Performed By: #### B MP #### [place] [address] NURSING PROGon 04-01-2022 NURSING PROG HNO ID: [id number] Author: Eagle Gu RN Service: ? Author Type: Registered Nurse Type: Nursing Progress Note Filed: 04/01/2022 9:56 PM Note Text: Nursing Progress Note Patient Name: Mary Leal Patient Location: [address]/PT1V-70 Daily Note:04/01/222038 Pt is alert and oriented x3. Surgical sites intact. Tap blocks x2 intact. Made SROC aware of Pt experiencing sharp/stabbing pain in abdomen, rating 9/10. SROC recommended use of PRN Dilaudid This note was completed by: [facility] NURSING PROG HNO ID: [id number] Author: Eagle Gu, RN Service: ? Author Type: Registered Nurse Type: Nursing Progress Note Filed: 04/01/2022 1:52 AM Note Text: Nursing Progress Note Patient Name: Mary Leal Patient Location: [place] [address]/[address]-22 Daily Note:03/31/222030 Pt is alert and oriented x3. Surgical sites intact. Nerve blocks x2 intact. This note was completed by: Eagle [facility] Phosphate SerPl-mCncon 04-01 Phosphate [Mass/Vol] 2.8 mg/dL Normal 2.7-4.8 [facility] Comment on above: Order Comment: Speci men Type: BLOOD SPECIMENOrdering Facility: [facility] Address: [address] [place] [address] Performed By: #### B #### [place] [address] Basic metabolic 2000 panelon 03-31-2022 Anion gap [Moles/Vol] 10 mmol/L Normal 9-18 [facility] Comment on above: Order Comment: Speci men Type: BLOOD SPECIMEN Ordering Facility: [facility] Address: [address] [place], [place] [address] Performed By: #### 5 8410-2 #### [facility] CLIA [id number] [address] [place] [address] [place] Calcium [Mass/Vol] 8.4 mg/dL Low 8.5-10.2 [facility] Comment on above: Order Comment: Speci men Type: BLOOD SPECIMEN Ordering Facility: [facility] Address: [address] [place] [address] Performed By: #### 5 8410-2 #### [facility] CLIA [id number] [address] [place] [address] [place] Chloride [Moles/Vol] 107 mmol/L High 97-105 [facility] Comment on above: Order Comment: Speci men Type: BLOOD SPECIMEN Ordering Facility: [facility] Address: [address] [place] [address] Performed By: #### 5 8410-2 #### [facility] CLIA [id number] [address] [place] [address] [place] CO2 [Moles/Vol] 23 mmol/L Normal 22-30 [facility] Comment on above: Order Comment: Speci men Type: BLOOD SPECIMEN Ordering Facility: [facility] Address: [address] [place] [address] Performed By: #### 5 8410-2 #### [facility] CLIA [id number] [address] [place] [address] [place] Creatinine [Mass/Vol] 0.67 mg/dL Normal 0.58-0.96 [facility] Comment on above: Order Comment: Speci men Type: BLOOD SPECIMEN Ordering Facility: [facility] Address: [address] [place] [address] Performed By: #### 5 8410-2 #### [facility] CLIA [id number] [address] [place] [address] OF [place] ESTIMATED GLOMERULAR FILTRATION RATE 107 mL/min/1.73m??? Normal >=60 [facility] Comment on above: Order Comment: Speci men Type: BLOOD SPECIMEN Ordering Facility: [facility] Address: [address] [place] [phone] Result Comment: Mary mated Glomerular Filtration Rate [...] GFR. Performed By: #### 5 8410-2 #### [facility] CLIA [id number] [address] [place] [address] [place] Glucose [Mass/Vol] 84 mg/dL Normal 74-99 [facility] Comment on above: Order Comment: Leanne terry Type: BLOOD SPECIMEN Ordering Facility: [facility] Address: [address] [place] [address] Result Comment: The [place] Diabetes Association (ADA) provides guidance for cutoff [...] Standards of Medical Care in Diabetes 2016, [place] Diabetes Association. Diabetes Care. 2016.39(Suppl 1). Performed By: #### 5 8410-2 #### [facility] CLIA [id number] [address] [place] [address] [place] Potassium [Moles/Vol] 3.8 mmol/L Normal 3.7-5.1 [facility] Comment on above: Order Comment: Leanne terry Type: BLOOD SPECIMEN Ordering Facility: [facility] Address: [address] [place] [address] Performed By: #### 5 8410-2 #### [facility] CLIA [id number] [address] [place] [address] [place] Sodium [Moles/Vol] 140 mmol/L Normal 136-144 [facility] Comment on above: Order Comment: Speci men Type: BLOOD SPECIMEN Ordering Facility: [facility] Address: [address] [place] [address] Performed By: #### 5 8410-2 #### [facility] CLIA [id number] [address] [place] [address] [place] Urea nitrogen [Mass/Vol] 11 mg/dL Normal 7-21 [facility] Comment on above: Order Comment: Speci men Type: BLOOD SPECIMEN Ordering Facility: [facility] Address: [address] [place] [address] Performed By: #### 5 8410-2 #### [facility] CLIA [id number] [address] [place] [address] [place] CBC W Auto Differential pane l (Bld)on 03-31-2022 Basophils (Bld) [#/Vol] 0.03 10*3/uL Normal <0.11 [facility] Comment on above: Order Comment: Speci men Type: BLOOD SPECIMEN Ordering Facility: [facility] Address: [address] [place] [address] Performed By: #### 5 7021-8 #### [facility] CLIA [id number] [address] [place] [address] [place] Basophils/100 WBC (Bld) 0.4 % Normal [facility] Comment on above: Order Comment: Speci men Type: BLOOD SPECIMEN Ordering Facility: [facility] Address: [address] [place] [address] Performed By: #### 5 7021-8 #### [facility] CLIA [id number] [address] [place] [address] [place] Differential cell count method Nom (Bld) Auto Normal [facility] Comment on above: Order Comment: Speci men Type: BLOOD SPECIMEN Ordering Facility: [facility] Address: [address] [place] [address] Performed By: #### 5 7021-8 #### [facility] CLIA [id number] [address] [place] [address] [place] Eosinophils (Bld) [#/Vol] 0.38 10*3/uL Normal <0.46 [facility] Comment on above: Order Comment: Speci men Type: BLOOD SPECIMEN Ordering Facility: [facility] Address: [address] [place] [address] Performed By: #### 5 7021-8 #### [facility] CLIA [id number] [address] [place] [address] [place] Eosinophils/100 WBC (Bld) 4.4 % Normal [facility] Comment on above: Order Comment: Speci men Type: BLOOD SPECIMEN Ordering Facility: [facility] Address: [address] [place] [address] Performed By: #### 5 7021-8 #### [facility] CLIA [id number] [address] [place] [address] [place] Erythrocyte distribution width (RBC) [Ratio] 12.6 % Normal 11.5-15.0 [facility] Comment on above: Order Comment: Speci men Type: BLOOD SPECIMEN Ordering Facility: [facility] Address: [address] [place] [address] Performed By: #### 5 7021-8 #### [facility] CLIA [id number] [address] [place] [address] [place] Hematocrit (Bld) [Volume fraction] 30.0 % Low 36.0-46.0 [facility] Comment on above: Order Comment: Speci men Type: BLOOD SPECIMEN Ordering Facility: [facility] Address: [address] [place] [address] Performed By: #### 5 7021-8 #### [facility] CLIA [id number] [address] [place] [address] [place] Hemoglobin (Bld) [Mass/Vol] 9.9 g/dL Low 11.5-15.5 [facility] Comment on above: Order Comment: Speci men Type: BLOOD SPECIMEN Ordering Facility: [facility] Address: [address] [place] [address] Performed By: #### 5 7021-8 #### [facility] CLIA [id number] [address] [place] [address] IMMATURE GRAN % 0.4 % Normal [facility] Comment on above: Order Comment: Speci men Type: BLOOD SPECIMEN Ordering Facility: [facility] Address: [address] [place] [address] Performed By: #### 5 7021-8 #### [facility] CLIA [id number] [address] [place] [address] IMMATURE GRAN ABS 0.03 k/uL Normal <0.10 [facility] Comment on above: Order Comment: Speci men Type: BLOOD SPECIMEN Ordering Facility: [facility] Address: [address] [place] [address] Performed By: #### 5 7021-8 #### [facility] CLIA [id number] [address] [place] [address] [place] Lymphocytes (Bld) [#/Vol] 1.24 10*3/uL Normal 1.00-4.00 [facility] Comment on above: Order Comment: Speci men Type: BLOOD SPECIMEN Ordering Facility: [facility] Address: [address] [place] [address] Performed By: #### 5 7021-8 #### [facility] CLIA [id number] [address] [place] [address] Lymphocytes/100 WBC (Bld) 14.5 % Normal [facility] Comment on above: Order Comment: Speci men Type: BLOOD SPECIMEN Ordering Facility: [facility] Address: [address] [place] [address] Performed By: #### 5 7021-8 #### [facility] CLIA [id number] [address] [place] [address] [place] MCH (RBC) [Entitic mass] 29.6 pg Normal 26.0-34.0 [facility] Comment on above: Order Comment: Speci men Type: BLOOD SPECIMEN Ordering Facility: [facility] Address: [address] [place] [address] Performed By: #### 5 7021-8 #### [facility] CLIA [id number] [address] [place] [address] [place] MCHC (RBC) [Mass/Vol] 33.0 g/dL Normal 30.5-36.0 [facility] Comment on above: Order Comment: Speci men Type: BLOOD SPECIMEN Ordering Facility: [facility] Address: [address] [place] [address] Performed By: #### 5 7021-8 #### [facility] CLIA [id number] [address] [place] [address] [place] MCV (RBC) [Entitic vol] 89.8 fL Normal 80.0-100.0 [facility] Comment on above: Order Comment: Speci men Type: BLOOD SPECIMEN Ordering Facility: [facility] Address: [address] [place] [address] Performed By: #### 5 7021-8 #### [facility] CLIA [id number] [address] [place] [address] [place] Monocytes (Bld) [#/Vol] 0.48 10*3/uL Normal <0.87 [facility] Comment on above: Order Comment: Speci men Type: BLOOD SPECIMEN Ordering Facility: [facility] Address: [address] [place] [address] Performed By: #### 5 7021-8 #### [facility] CLIA [id number] [address] [place] [address] [place] Monocytes/100 WBC (Bld) 5.6 % Normal [facility] Comment on above: Order Comment: Speci men Type: BLOOD SPECIMEN Ordering Facility: [facility] Address: [address] [place] [address] Performed By: #### 5 7021-8 #### [facility] CLIA [id number] [address] [place] [address] [place] Neutrophils (Bld) [#/Vol] 6.41 10*3/uL Normal 1.45-7.50 [facility] Comment on above: Order Comment: Speci men Type: BLOOD SPECIMEN Ordering Facility: [facility] Address: [address] [place] [address] Performed By: #### 5 7021-8 #### [facility] CLIA [id number] [address] [place] [address] [place] Neutrophils/100 WBC (Bld) 74.7 % Normal [facility] Comment on above: Order Comment: Speci men Type: BLOOD SPECIMEN Ordering Facility: [facility] Address: [address] [place] [address] Performed By: #### 5 7021-8 #### [facility] CLIA [id number] [address] [place] [address] [place] Nucleated RBC (Bld) [#/Vol] 10*3/uL Normal <0.01 [facility] Comment on above: Order Comment: Speci men Type: BLOOD SPECIMEN Ordering Facility: [facility] Address: [address] [place] [address] Performed By: #### 5 7021-8 #### [facility] CLIA [id number] [address] [place] [address] [place] Nucleated RBC/100 WBC (Bld) [Ratio] 0.0 /100 WBC Normal [facility] Comment on above: Order Comment: Speci men Type: BLOOD SPECIMEN Ordering Facility: [facility] Address: [address] [place] [address] Performed By: #### 5 7021-8 #### [facility] CLIA [id number] [address] [place] [address] [place] Platelet mean volume (Bld) [Entitic vol] 9.0 fL Normal 9.0-12.7 [facility] Comment on above: Order Comment: Speci men Type: BLOOD SPECIMEN Ordering Facility: [facility] Address: [address] [place] [address] Performed By: #### 5 7021-8 #### [facility] CLIA [id number] [address] [place] [address] [place] Platelets (Bld) [#/Vol] 246 10*3/uL Normal 150-400 [facility] Comment on above: Order Comment: Speci men Type: BLOOD SPECIMEN Ordering Facility: [facility] Address: [address] [place] [address] Performed By: #### 5 7021-8 #### [facility] CLIA [id number] [address] [place] [address] [place] RBC (Bld) [#/Vol] 3.34 10*6/uL Low 3.90-5.20 [facility] Comment on above: Order Comment: Speci men Type: BLOOD SPECIMEN Ordering Facility: [facility] Address: [address] [place] [address] Performed By: #### 5 7021-8 #### [facility] CLIA [id number] [address] [place] [address] [place] WBC (Bld) [#/Vol] 8.57 10*3/uL Normal 3.70-11.00 [facility] Comment on above: Order Comment: Speci men Type: BLOOD SPECIMEN Ordering Facility: [facility] Address: [address] [place] [address] Performed By: #### 5 7021-8 #### [facility] CLIA [id number] [address] [place] [address] CONSULT PROGon 03-31-2022 CONSULT PROG HNO ID: [id number] Author: Joslyn Jain APRN.CNP Service: Pain Management Author Type: Nurse Practitioner [...] and solution: Yes. Solution Ropivacaine 0.2%, rate 0/30/2 ml/hr. Adjuvant Pain Medication: See below. Current [...] AND U (more content not included)... Normal [facility] Magnesium SerPl-mCncon 03-31 Magnesium [Mass/Vol] 1.6 mg/dL Low 1.7-2.3 [facility] Comment on above: Order Comment: Speci men Type: BLOOD SPECIMEN Ordering Facility: [facility] Address: [address] [place] [address] Performed By: #### 5 8410-2 #### [facility] CLIA [id number] [address] [place] [address] OF [facility] NURSING PROGon 03-31-2022 NURSING PROG HNO ID: [id number] Author: aDisy Amaya RN Service: Nursing Author Type: Registered Nurse Type: Nursing Progress Note Filed: 03/31/2022 4:56 PM Note Text: Nursing Progress Note Patient Name: Mary Leal Patient Location: [address]/CC6Q-84 Daily Note: 0931- Pt A+Ox3. Up with standby assist. Ambulated pod multiple times. Laps intact. Old ostomy site WNL. Pt having liquid brown BMs. Voiding adq. No nausea, cp, or sob. Taps infusing per JAN. Pain controlled with PRN oxy. No further needs at this time. This note was completed by: Daisy Amaya [facility] NURSING PROG HNO ID: [id number] Author: Mariluz Carnes RN Service: Nursing Author Type: Registered Nurse Type: Nursing Progress Note Filed: 03/30/2022 11:47 PM Note Text: Nursing Progress Note Patient Name: Mary Leal Patient Location: [address]/HY3I-42 Daily Note: Pt's BP 90/52. Patient asymptomatic. Surgery made aware. Order in for Bolus LR 500CC's. This note was completed by: Mariluz Carnes [facility] Phosphate SerPl-mCncon 03-31 Phosphate [Mass/Vol] 2.7 mg/dL Normal 2.7-4.8 [facility] Comment on above: Order Comment: Speci men Type: BLOOD SPECIMEN Ordering Facility: [facility] Address: [address] [place] [address] Performed By: #### 5 8410-2 #### [facility] CLIA [id number] [address] [place] [address] [place] Basic metabolic 2000 panelon 03-30-2022 Anion gap [Moles/Vol] 10 mmol/L Normal 9-18 [facility] Comment on above: Order Comment: Speci men Type: BLOOD SPECIMEN Ordering Facility: [facility] Address: [address] [place] [address] Performed By: #### 1 9123-9, 2777-1, 67071-8 #### [facility] CLIA [id number] [address] [place] [address] [place] Calcium [Mass/Vol] 8.5 mg/dL Normal 8.5-10.2 [facility] Comment on above: Order Comment: Speci men Type: BLOOD SPECIMEN Ordering Facility: [facility] Address: [address] [place] [address] Performed By: #### 1 9123-9, 2777-1, 46765-9 #### [facility] CLIA [id number] [address] [place] [address] [place] Chloride [Moles/Vol] 103 mmol/L Normal 97-105 [facility] Comment on above: Order Comment: Speci men Type: BLOOD SPECIMEN Ordering Facility: [facility] Address: [facility] [place] [address] Performed By: #### 1 9123-9, 2777-, 08431-6 #### [facility] CLIA [id number] [address] [place] [address] [place] CO2 [Moles/Vol] 24 mmol/L Normal 22-30 [facility] Comment on above: Order Comment: Speci men Type: BLOOD SPECIMEN Ordering Facility: [facility] Address: [address] [place] [address] Performed By: #### 1 9123-9, 2777-1, 90973-5 #### [facility] CLIA [id number] [address] [place] [address] [place] Creatinine [Mass/Vol] 0.69 mg/dL Normal 0.58-0.96 [facility] Comment on above: Order Comment: Speci men Type: BLOOD SPECIMEN Ordering Facility: [facility] Address: [facility] [place] [address] Performed By: #### 1 9123-9, 2777, 95847-9 #### [facility] CLIA [id number] [address] [place] [address] [place] ESTIMATED GLOMERULAR FILTRATION RATE 107 mL/min/1.73m??? Normal >=60 [facility] Comment on above: Order Comment: Speci men Type: BLOOD SPECIMEN Ordering Facility: [facility] Address: [address] [place] [address] [place] [address] Result Comment: Mary mated Glomerular Filtration Rate [...] GFR. Performed By: #### 1 9123-9, 2777-, 85978-4 #### [facility] CLIA [id number] [address] [place] [address] [place] Glucose [Mass/Vol] 117 mg/dL High 74-99 [facility] Comment on above: Order Comment: Leanne terry Type: BLOOD SPECIMEN Ordering Facility: [facility] Address: [address] [place], [place] [id number] Result Comment: The [place] Diabetes Association (ADA) provides guidance for cutoff [...] Standards of Medical Care in Diabetes 2016, [place] Diabetes Association. Diabetes Care. 2016.39(Suppl 1). Performed By: #### 1 9123-9, 2776-11, 96606-3 #### [facility] CLIA [id number] [place] [address] [place] Potassium [Moles/Vol] 3.9 mmol/L Normal 3.7-5.1 [facility] Comment on above: Order Comment: Leanne terry Type: BLOOD SPECIMEN Ordering Facility: [facility] Address: [address] [place] [address] Performed By: #### 1 9123-9, 27705-06, 47365-0 #### [facility] CLIA [id number] [address] [place] [id number] [place] Sodium [Moles/Vol] 137 mmol/L Normal 136-144 [facility] Comment on above: Order Comment: Speci men Type: BLOOD SPECIMEN Ordering Facility: [facility] Address: [address] [place] [address] Performed By: #### 1 9123-9, 2777, 53860-7 #### [facility] CLIA [id number] [address] [place] [address] [place] Urea nitrogen [Mass/Vol] 13 mg/dL Normal 7-21 [facility] Comment on above: Order Comment: Speci men Type: BLOOD SPECIMEN Ordering Facility: [facility] Address: [address] [place] [address] Performed By: #### 1 9123-9, 27705-06, 71761-5 #### [facility] CLIA [id number] [address] [place] [address] [place] CBC panel Auto (Bld)on 03-30 Erythrocyte distribution width (RBC) [Ratio] 12.8 % Normal 11.5-15.0 [facility] Comment on above: Order Comment: Speci men Type: BLOOD SPECIMEN Ordering Facility: [facility] Address: [address] [place] [address] Performed By: #### 5 8410-2 #### [facility] CLIA [id number] [address] [place] [address] [place] Hematocrit (Bld) [Volume fraction] 35.0 % Low 36.0-46.0 [facility] Comment on above: Order Comment: Speci men Type: BLOOD SPECIMEN Ordering Facility: [facility] Address: [address] [place] [address] Performed By: #### 5 8410-2 #### [facility] CLIA [id number] [address] [place] [address] [place] Hemoglobin (Bld) [Mass/Vol] 11.8 g/dL Normal 11.5-15.5 [facility] Comment on above: Order Comment: Speci men Type: BLOOD SPECIMEN Ordering Facility: [facility] Address: [address] [place] [address] Performed By: #### 5 8410-2 #### [facility] CLIA [id number] [address] [place] [address] STATES [facility] MCH (RBC) [Entitic mass] 30.6 pg Normal 26.0-34.0 [facility] Comment on above: Order Comment: Speci men Type: BLOOD SPECIMEN Ordering Facility: [facility] Address: [address] [place] [address] Performed By: #### 5 8410-2 #### [facility] CLIA [id number] [address] [place] [address] [place] MCHC (RBC) [Mass/Vol] 33.7 g/dL Normal 30.5-36.0 [facility] Comment on above: Order Comment: Speci men Type: BLOOD SPECIMEN Ordering Facility: [facility] Address: [address] [place] [address] Performed By: #### 5 8410-2 #### [facility] CLIA [id number] [address] [place] [address] [place] MCV (RBC) [Entitic vol] 90.7 fL Normal 80.0-100.0 [facility] Comment on above: Order Comment: Speci men Type: BLOOD SPECIMEN Ordering Facility: [facility] Address: [address] [place] [address] Performed By: #### 5 8410-2 #### [facility] CLIA [id number] [address] [place] [address] [place] Nucleated RBC (Bld) [#/Vol] 10*3/uL Normal <0.01 [facility] Comment on above: Order Comment: Speci men Type: BLOOD SPECIMEN Ordering Facility: [facility] Address: [address] [place] [address] Performed By: #### 5 8410-2 #### [facility] CLIA [id number] [address] [place] [address] [place] Platelet mean volume (Bld) [Entitic vol] 8.9 fL Low 9.0-12.7 [facility] Comment on above: Order Comment: Speci men Type: BLOOD SPECIMEN Ordering Facility: [facility] Address: [address] [place] [address] Performed By: #### 5 8410-2 #### [facility] CLIA [id number] [address] [place] [address] [place] Platelets (Bld) [#/Vol] 293 10*3/uL Normal 150-400 [facility] Comment on above: Order Comment: Speci men Type: BLOOD SPECIMEN Ordering Facility: [facility] Address: [address] [place] [address] Performed By: #### 5 8410-2 #### [facility] CLIA [id number] [address] [place] [address] [place] RBC (Bld) [#/Vol] 3.86 10*6/uL Low 3.90-5.20 [facility] Comment on above: Order Comment: Speci men Type: BLOOD SPECIMEN Ordering Facility: [facility] Address: [address] [place] [address] Performed By: #### 5 8410-2 #### [facility] CLIA [id number] [address] [place] [address] [place] WBC (Bld) [#/Vol] 11.25 10*3/uL High 3.70-11.00 [facility] Comment on above: Order Comment: Speci men Type: BLOOD SPECIMEN Ordering Facility: [facility] Address: [address] [place] [address] Performed By: #### 5 8410-2 #### [facility] CLIA [id number] [address] [place] [address] [place] CONSULT PROGon 03-30-2022 CONSULT PROG HNO ID: [id number] Author: Joslyn Jain APRN.LINING CLOSER Service: Pain Management Author Type: Nurse Practitioner [...] pain PRIMARY SERVICE: Colorectal INTERVAL HPI: Mary Ludmila Leal is a 51 year [...] eGFR >= (more content not included)... Normal [facility] Magnesium SerPl-mCncon 03-30 Magnesium [Mass/Vol] 1.6 mg/dL Low 1.7-2.3 [facility] Comment on above: Order Comment: Speci men Type: BLOOD SPECIMEN Ordering Facility: [facility] Address: [address] [place] [address] Performed By: #### 1 9123-9, 2777-1, 10293-5 #### [facility] CLIA [id number] [address] [place] [address] [place] Phosphate SerPl-mCncon 03-30 Phosphate [Mass/Vol] 2.9 mg/dL Normal 2.7-4.8 [facility] Comment on above: Order Comment: Speci men Type: BLOOD SPECIMEN Ordering Facility: [facility] Address: [address] [place] [address] Performed By: #### 1 9123-9, 2777-1, 27040-9 #### [facility] CLIA [id number] [address] [place] [address] [place] ANES POSTPROC EVALon 022 ANES POSTPROC EVAL HNO ID: [id number] Author: Nathanael Craig DO Service: Anesthesiology Author Type: Anesthesiologist Type: Anesthesia Postprocedure Evaluation Filed: 03/29/2022 8:29 AM Note Text: POST ANESTHESIA EVALUATION NOTE : 1970 Procedure Summary Date: 03/28/22 Room / Location: OR12 / FV OR Anesthesia Start: 907 Anesthesia Stop: 1629 [...] March 29, 2022 TIME: 8:29 AM CSN: [id number] Normal [facility] Basic metabolic 2000 panelon 03-29-2022 Anion gap [Moles/Vol] 9 mmol/L Normal 9-18 [facility] Comment on above: Order Comment: Speci men Type: BLOOD SPECIMEN Ordering Facility: [facility] Address: [address] [place] [address] Performed By: #### 5 8410-2 #### [facility] CLIA [id number] [place] [address] [place] Calcium [Mass/Vol] 7.9 mg/dL Low 8.5-10.2 [facility] Comment on above: Order Comment: Speci men Type: BLOOD SPECIMEN Ordering Facility: [facility] Address: [address] [place] [address] Performed By: #### 5 8410-2 #### [facility] CLIA [id number] [address] [place] [address] [place] Chloride [Moles/Vol] 105 mmol/L Normal 97-105 [facility] Comment on above: Order Comment: Speci men Type: BLOOD SPECIMEN Ordering Facility: [facility] Address: [address] [place] [address] Performed By: #### 5 8410-2 #### [facility] CLIA [id number] [address] [place] [address] [place] CO2 [Moles/Vol] 24 mmol/L Normal 22-30 [facility] Comment on above: Order Comment: Speci men Type: BLOOD SPECIMEN Ordering Facility: [facility] Address: [address] [place] [address] Performed By: #### 5 8410-2 #### [facility] CLIA [id number] [address] [place] [address] [place] Creatinine [Mass/Vol] 0.70 mg/dL Normal 0.58-0.96 [facility] Comment on above: Order Comment: Speci men Type: BLOOD SPECIMEN Ordering Facility: [facility] Address: [address] [place] [address] Performed By: #### 5 8410-2 #### [facility] CLIA [id number] [address] [place] [address] [place] ESTIMATED GLOMERULAR FILTRATION RATE 106 mL/min/1.73m??? Normal >=60 [facility] Comment on above: Order Comment: Speci men Type: BLOOD SPECIMEN Ordering Facility: [facility] Address: [address] [place] [address] Result Comment: Mary mated Glomerular Filtration Rate [...] GFR. Performed By: #### 5 8410-2 #### [facility] CLIA [id number] [address] [place] [address] [place] Glucose [Mass/Vol] 92 mg/dL Normal 74-99 [facility] Comment on above: Order Comment: Speci men Type: BLOOD SPECIMEN Ordering Facility: [facility] Address: [address] [place], [place] [address] Result Comment: The [place] Diabetes Association (ADA) provides guidance for cutoff [...] Standards of Medical Care in Diabetes 2016, [place] Diabetes Association. Diabetes Care. 2016.39(Suppl 1). Performed By: #### 5 8410-2 #### [facility] CLIA [id number] [place] [address] [place] Potassium [Moles/Vol] 4.1 mmol/L Normal 3.7-5.1 [facility] Comment on above: Order Comment: Everettei men Type: BLOOD SPECIMEN Ordering Facility: [facility] Address: [address] [place] [address] Performed By: #### 5 8410-2 #### [facility] CLIA [id number] [address] [place] [address] [place] Sodium [Moles/Vol] 138 mmol/L Normal 136-144 [facility] Comment on above: Order Comment: Speci men Type: BLOOD SPECIMEN Ordering Facility: [facility] Address: [address] [place] [address] Performed By: #### 5 8410-2 #### [facility] CLIA [id number] [address] [place] [address] [place] [facility] Urea nitrogen [Mass/Vol] 12 mg/dL Normal 7-21 [facility] Comment on above: Order Comment: Speci men Type: BLOOD SPECIMEN Ordering Facility: [facility] Address: [address] [place] [address] Performed By: #### 5 8410-2 #### [facility] CLIA [id number] [address] [place] [address] [place] CBC W Auto Differential pane l (Bld)on 03-29-2022 Basophils (Bld) [#/Vol] 0.04 10*3/uL Normal <0.11 [facility] Comment on above: Order Comment: Speci men Type: BLOOD SPECIMEN Ordering Facility: [facility] Address: [address] [place] [address] Performed By: #### 5 7021-8 #### [facility] CLIA [id number] [address] [place] [address] [place] Basophils/100 WBC (Bld) 0.6 % Normal [facility] Comment on above: Order Comment: Speci men Type: BLOOD SPECIMEN Ordering Facility: [facility] Address: [address] [place] [address] Performed By: #### 5 7021-8 #### [facility] CLIA [id number] [address] [place] [address] [place] Differential cell count method Nom (Bld) Auto Normal [facility] Comment on above: Order Comment: Speci men Type: BLOOD SPECIMEN Ordering Facility: [facility] Address: [address] [place] [address] Performed By: #### 5 7021-8 #### [facility] CLIA [id number] [address] [place] [address] [place] Eosinophils (Bld) [#/Vol] 0.16 10*3/uL Normal <0.46 [facility] Comment on above: Order Comment: Speci men Type: BLOOD SPECIMEN Ordering Facility: [facility] Address: [address] [place] [address] Performed By: #### 5 7021-8 #### [facility] CLIA [id number] [address] [place] [address] Eosinophils/100 WBC (Bld) 2.3 % Normal [facility] Comment on above: Order Comment: Speci men Type: BLOOD SPECIMEN Ordering Facility: [facility] Address: [address] [place] [address] Performed By: #### 5 7021-8 #### [facility] CLIA [id number] [address] [place] [address] Erythrocyte distribution width (RBC) [Ratio] 12.8 % Normal 11.5-15.0 [facility] Comment on above: Order Comment: Speci men Type: BLOOD SPECIMEN Ordering Facility: [facility] Address: [address] [place] [address] Performed By: #### 5 7021-8 #### [facility] CLIA [id number] [address] [place] [address] Hematocrit (Bld) [Volume fraction] 32.3 % Low 36.0-46.0 [facility] Comment on above: Order Comment: Speci men Type: BLOOD SPECIMEN Ordering Facility: [facility] Address: [address] [place] [address] Performed By: #### 5 7021-8 #### [facility] CLIA [id number] [address] [place] [address] [place] Hemoglobin (Bld) [Mass/Vol] 10.7 g/dL Low 11.5-15.5 [facility] Comment on above: Order Comment: Speci men Type: BLOOD SPECIMEN Ordering Facility: [facility] Address: [address] [place] [address] Performed By: #### 5 7021-8 #### [facility] CLIA [id number] [address] [place] [address] [place] IMMATURE GRAN % 0.3 % Normal [facility] Comment on above: Order Comment: Speci men Type: BLOOD SPECIMEN Ordering Facility: [facility] Address: [address] [place] [address] Performed By: #### 5 7021-8 #### [facility] CLIA [id number] [address] [place] [address] IMMATURE GRAN ABS <0.03 Normal <0.10 [facility] Comment on above: Order Comment: Speci men Type: BLOOD SPECIMEN Ordering Facility: [facility] Address: [address] [place] [address] Performed By: #### 5 7021-8 #### [facility] CLIA [id number] [address] [place] [address] Lymphocytes (Bld) [#/Vol] 1.39 10*3/uL Normal 1.00-4.00 [facility] Comment on above: Order Comment: Speci men Type: BLOOD SPECIMEN Ordering Facility: [facility] Address: [address] [place] [address] Performed By: #### 5 7021-8 #### [facility] CLIA [id number] [address] [place] [address] Lymphocytes/100 WBC (Bld) 19.7 % Normal [facility] Comment on above: Order Comment: Speci men Type: BLOOD SPECIMEN Ordering Facility: [facility] Address: [address] [place] [address] Performed By: #### 5 7021-8 #### [facility] CLIA [id number] [address] [place] [address] MCH (RBC) [Entitic mass] 29.8 pg Normal 26.0-34.0 [facility] Comment on above: Order Comment: Speci men Type: BLOOD SPECIMEN Ordering Facility: [facility] Address: [address] [place] [address] Performed By: #### 5 7021-8 #### [facility] CLIA [id number] [address] [place] [address] [place] MCHC (RBC) [Mass/Vol] 33.1 g/dL Normal 30.5-36.0 [facility] Comment on above: Order Comment: Speci men Type: BLOOD SPECIMEN Ordering Facility: [facility] Address: [address] [place] [address] Performed By: #### 5 7021-8 #### [facility] CLIA [id number] [address] [place] [address] [place] MCV (RBC) [Entitic vol] 90.0 fL Normal 80.0-100.0 [facility] Comment on above: Order Comment: Speci men Type: BLOOD SPECIMEN Ordering Facility: [facility] Address: [address] [place] [address] Performed By: #### 5 7021-8 #### [facility] CLIA [id number] [address] [place] [address] [place] Monocytes (Bld) [#/Vol] 0.55 10*3/uL Normal <0.87 [facility] Comment on above: Order Comment: Speci men Type: BLOOD SPECIMEN Ordering Facility: [facility] Address: [address] [place] [address] Performed By: #### 5 7021-8 #### [facility] CLIA [id number] [address] [place] [address] [place] Monocytes/100 WBC (Bld) 7.8 % Normal [facility] Comment on above: Order Comment: Speci men Type: BLOOD SPECIMEN Ordering Facility: [facility] Address: [address] [place] [address] Performed By: #### 5 7021-8 #### [facility] CLIA [id number] [address] [place] [address] [place] Neutrophils (Bld) [#/Vol] 4.88 10*3/uL Normal 1.45-7.50 [facility] Comment on above: Order Comment: Speci men Type: BLOOD SPECIMEN Ordering Facility: [facility] Address: [address] [place] [address] Performed By: #### 5 7021-8 #### [facility] CLIA [id number] [address] [place] [address] [place] Neutrophils/100 WBC (Bld) 69.3 % Normal [facility] Comment on above: Order Comment: Speci men Type: BLOOD SPECIMEN Ordering Facility: [facility] Address: [address] [place] [address] Performed By: #### 5 7021-8 #### [facility] CLIA [id number] [address] [place] [address] [place] Nucleated RBC (Bld) [#/Vol] 10*3/uL Normal <0.01 [facility] Comment on above: Order Comment: Speci men Type: BLOOD SPECIMEN Ordering Facility: [facility] Address: [address] [place] [address] Performed By: #### 5 7021-8 #### [facility] CLIA [id number] [address] [place] [address] [place] Nucleated RBC/100 WBC (Bld) [Ratio] 0.0 /100 WBC Normal [facility] Comment on above: Order Comment: Speci men Type: BLOOD SPECIMEN Ordering Facility: [facility] Address: [address] [place] [address] Performed By: #### 5 7021-8 #### [facility] CLIA [id number] [address] [place] [address] [place] Platelet mean volume (Bld) [Entitic vol] 9.0 fL Normal 9.0-12.7 [facility] Comment on above: Order Comment: Speci men Type: BLOOD SPECIMEN Ordering Facility: [facility] Address: [address] [place] [address] Performed By: #### 5 7021-8 #### [facility] CLIA [id number] [address] [place] [address] [place] Platelets (Bld) [#/Vol] 241 10*3/uL Normal 150-400 [facility] Comment on above: Order Comment: Speci men Type: BLOOD SPECIMEN Ordering Facility: [facility] Address: [address] [place] [address] Performed By: #### 5 7021-8 #### [facility] CLIA [id number] [address] [place] [address] [place] RBC (Bld) [#/Vol] 3.59 10*6/uL Low 3.90-5.20 [facility] Comment on above: Order Comment: Speci men Type: BLOOD SPECIMEN Ordering Facility: [facility] Address: [address] [place] [address] Performed By: #### 5 7021-8 #### [facility] CLIA [id number] [place] [address] [place] WBC (Bld) [#/Vol] 7.04 10*3/uL Normal 3.70-11.00 [facility] Comment on above: Order Comment: Speci men Type: BLOOD SPECIMEN Ordering Facility: [facility] Address: [address] [place] [address] Performed By: #### 5 7021-8 #### [facility] CLIA [id number] [address] [place] [address] [place] CONSULT PROGon 03-29-2022 CONSULT PROG HNO ID: [id number] Author: Joslyn Jain APRN.LINING CLOSER Service: Pain Management Author Type: Nurse Practitioner [...] is on liq diet, currently on Dilaudid HEARTH FEEDER at 0/0.2/10/6 last 2 hours 06/27 bolus [...] No Relieved: Yes - NOW with increase HEARTH FEEDER and Repositioning and HEARTH FEEDER Is patient satisfied with pain control: Yes [...] mL PERIPHERAL NERVE CATHETER CONTINUOUS - HYDROmorphone HEARTH FEEDER 0.5 mg/mL in NaCl 0.9% 100 mL [...] % 69.3 (more content not included)... Normal [facility] Magnesium SerPl-mCncon 03-29 Magnesium [Mass/Vol] 1.4 mg/dL Low 1.7-2.3 [facility] Comment on above: Order Comment: Speci men Type: BLOOD SPECIMEN Ordering Facility: [facility] Address: [address] [place] [address] Performed By: #### 5 8410-2 #### [facility] CLIA [id number] NURSING PROGon 03-29-2022 NURSING PROG HNO ID: [id number] Author: Juan Crowley, MAKI Service: Nursing Author Type: Registered Nurse Type: Nursing Progress Note Filed: 03/29/2022 2:00 PM Note Text: Nursing Progress Note Patient Name: Mary Leal Patient Location: [place] [address] Daily Note: Patient VSS. RA POx. Pain level better controlled now that HEARTH FEEDER initiated. B/L Ropivacaine Tap Blocks with dressings CDI. Magnesium replenished as ordered. 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 Dressing to old ostomy saturated [...] This note was completed by: Juan Crowley [facility] NURSING PROG HNO ID: [id number] Author: Kev Leone RN Service: ? Author Type: Registered Nurse Type: Nursing Progress Note Filed: 03/29/2022 3:53 AM Note Text: Nursing Progress Note Patient Name: Mary Leal Patient Location: [address] Daily Note: 0350: Pt states she is in 10/10 pain, pt has no PO pain meds ordered, page sent to surgery resident This note was completed by: Kev Leone [facility] PT EDon 03-29-2022 PT ED HNO ID: [id number] Author: Merced Morales DTR Service: Nutrition Therapy Author Type: Aerodynamicist Type: Patient Education Filed: 03/29/2022 11:05 AM [...] March 29, 2022 TIME: 11:04 AM PAGER: [facility] Phosphate SerPl-mCncon 03-29 Phosphate [Mass/Vol] 2.9 mg/dL Normal 2.7-4.8 [facility] Comment on above: Order Comment: Speci men Type: BLOOD SPECIMEN Ordering Facility: [facility] Address: [address] [place] [address] Performed By: #### 5 8410-2 #### [facility] CLIA [id number] [address] [place] [address] [facility] ANES PRE-OPon 03-28-2022 ANES PRE-OP HNO ID: [id number] Author: Anibal Bertrand MD Service: Anesthesiology Author Type: Anesthesiologist Type: Anesthesia Preprocedure Evaluation Filed: 03/28/2022 8:29 AM Note Text: ANESTHESIOLOGY DAY OF SURGERY NOTE : 1970 Procedure Information Date/Time: 03/28/22 0830 Procedures: LAPAROSCOPIC TOTAL COLECTOMY LITHOTOMY (N/A Abdomen) [...] and consent discussed: yes. Patient / Responsible Democrat agrees to proceed: yes Patient / Surrogate [...] 03/28/22812 Resp Temp 36.1 ?C (97 ?F) 03/28/22 08 SpO2 98 % 03/28/22 08 Facility-Administered Medications as of 03/28/2022 Medication Dose [...] LUNGS every 4 hours if needed - mkdqgqvldiw-dhhhoppzr-bnw anter (TRELEGY ELLIPTA) 100-62.5-25 mcg Inhale 1 [...] (FLONASE) 50 mcg/actuation nasal spray Use 1 Dougherty in each nostril on (more content not included)... [facility] BRIEF OP NOTon 03-28-2022 BRIEF OP NOT HNO ID: [id number] Author: Nita Lamas MD Service: Colorectal Author Type: Fellow Type: Brief Op Note Filed: 03/28/2022 3:43 PM Note Text: BRIEF OPERATIVE NOTE - COLORECTAL SURGERY Log ID: [id number] Surgery/Procedure Date: 03/28/2022 Incision/Procedure Start Time: 9:47 AM Incision Close/Procedure End Time: 3:40 PM Surgeon(s) and Relay Motorman(s): Surgeon(s) and Role: * Mary Obrien MD [...] DATE: March 28, 2022 TIME: 3:42 PM [facility] NURSING PROGon 03-28-2022 NURSING PROG HNO ID: [id number] Author: Merced Lay RN Service: ? Author Type: Registered Nurse Type: Nursing Progress Note Filed: 03/28/2022 6:56 PM Note Text: Nursing Progress Note Patient Name: Mary Leal Patient Location: [place] [address] [address] Transfer Note: Patient transferred into room/unit [id number] in stable condition. Actions taken: No futher actions taken at this time. Will continue to monitor and check with patient. Paged surgical team. Pt has TAP blocks, but orders were discontinued from PACU. New orders for blocks need to be placed in eMAR. Awaiting call back or orders. This note was completed by: Merced Lay [facility] NURSING PROG HNO ID: [id number] Author: Monica Nicole RN Service: Nursing Author Type: Registered Nurse Type: Nursing Progress Note Filed: 03/28/2022 6:35 PM Note Text: Nursing Progress Note Patient Name: Mary Leal Patient Location: [place] OR POOL Daily Note: 0: Dr. Novak notified of patients increase in heart rate from arrival to post op. Patient HR now maintaining in the 120s. 1830: vice president of engineering rounding at patient bedside. Dressing and abdomen assessed- drainage to be expected on island dressing. Notified him of patients HR running high and notified that patient normally takes 50mg atenolol but held today for surgery. Patient's pain managed and other VS stable at this time. vice president of engineering is OK with patient going to regular nursing floor at this time. Family updated. This note was completed by: Monica Nicole [facility] NURSING PROG HNO ID: [id number] Author: Vianney Chacon RN Service: Nursing Author [...] (RECOMMENDATION): None Electronically Signed By: Vianney Chacon [facility] OPERATIVE NOon 03-28-2022 OPERATIVE NO HNO ID: [id number] Author: Mary Obrien MD Service: Colorectal Author Type: Physician Type: Operative Report Filed: 03/28/2022 5:06 PM Note Text: COLON AND RECTAL SURGERY OPERATIVE REPORT PATIENT NAME: Mary Leal ADMISSION DATE: 03/28/2022 LOG ID: [id number] SURGERY/PROCEDURE DATE: 03/28/2022 INCISION/PROCEDURE START TIME: 9:47 AM INCISION CLOSE/PROCEDURE END TIME: 3:40 PM AGE: [age] year old SEX: female SURGEON(S)/PROCEDURALIST( S) AND SNIPPER(S): Surgeon(s) and Role: * Mary Obrien MD [...] The abdome (more content not included)... Normal [facility] SURGICAL PATHOLOGYon 022 CASE REPORT Normal [facility] Comment on above: Order Comment: Speci men Type: BLOOD SPECIMEN Ordering Facility: [facility] Address: [address] [place] [address] Result Comment: Surg ica Pathology Report Case: [id number] Authorizing Provider: Mary Obrien MD Collected: 03/28/2022 01:43 PM Ordering Location: [facility] Received: 03/28/2022 04:10 PM Operating Room Pathologist: Areli Rodriguez MD Specimen: COLON RESECTION, terminal ileum with ileostomy Performed By: #### 5 7021-8 #### [facility] CLIA [id number] CLINICAL HISTORY ILEORECTAL ANASTOMOS IS, TAKEDOWN OF ILEOSTOMY Normal [facility] Comment on above: Order Comment: Speci men Type: BLOOD SPECIMEN Ordering Facility: [facility] Address: [address] [place] [address] Performed By: #### 5 7021-8 #### [facility] CLIA [id number] DIAGNOSIS COMMENT The histologic findi ngs [...] of associated inflammation or infectious organisms. Normal [facility] Comment on above: Order Comment: Speci men Type: BLOOD SPECIMEN Ordering Facility: [facility] Address: [address] [place] [address] Performed By: #### 5 7021-8 #### [facility] CLIA [id number] FINAL DIAGNOSIS Normal [facility] Comment on above: Order Comment: Speci men Type: BLOOD SPECIMEN Ordering Facility: [facility] Address: [address] [place] [address] Result Comment: [place] and terminal ileum with ileostomy, resection: - Colon with patchy active colitis, submucosal fibrosis, acute serositis, and fibrovascular adhesions (see comment). - Small bowel with focal transmural defect, acute serositis, fibrovascular adhesions, and changes consistent with ileostomy site. - Benign lymph nodes. JEL 03/31/2022 Performed By: #### 5 7021-8 #### [facility] CLIA [id number] FINAL PERFORMING LAB Normal [facility] Comment on above: Order Comment: Speci men Type: BLOOD SPECIMEN Ordering Facility: [facility] Address: [address] [place] [address] Result Comment: Diag nostic interpretation performed at [facility], [address] [place] [address] CLIA# [id number] Adobe Layer Helper: Joshua Anderson M.D. Performed By: #### 5 7021-8 #### [facility] CLIA [id number] [address] [place] [address] GROSS DESCRIPTION Normal [facility] Comment on above: Order Comment: Speci men Type: BLOOD SPECIMEN Ordering Facility: [facility] Address: [address] [place] [address] Result Comment: A. C OLON RESECTION. Received [...] diverticula. The serosa is jaimes-pink and smooth. Customer Data Technician sections are submitted from distal to proximal [...] 2022 9:53 AM Gross examination performed at [facility], [address] [place] [address] CLIA # [id number] Performed By: #### 5 7021-8 #### [facility] CLIA [id number] [address] [place] [address] [place] Q - CBC W/DIFF AND PLTon BASOABS 59 cells/uL Normal 0-200 [facility] Comment on above: Order Comment: [facility] performed at: [facility], [address] [place] [address], [address] [place] [address], [address], Adobe Layer Helper: Gopal Hamilton MD [facility] Collection Date/Time: [id number] [facility] Results Received Date/Time: [facility] Reported Date/Time: [id number] Performed By: #### 9 68T, 39421L, %8293, 07553O, 6399, 496X #### [facility] [address] [place] [address] Basophils/100 WBC (Bld) 1.0 % Normal [facility] Comment on above: Order Comment: [facility] performed at: [facility] [employer] [facility], [address], [address] [place] [address], [address] [place] [address], Adobe Layer Helper: Gopal Hamilton MD [facility] Collection Date/Time: [facility] Results Received Date/Time: [facility] Reported Date/Time: Performed By: #### 9 68T, 12154B, %8293, 00301F, 6399, 496X #### [facility] [address] [place] [address] EOSABS 171 cells/uL Normal 15-500 [facility] Specialist Comment on above: Order Comment: [facility] performed at: [facility] [employer] [facility], [address] , [address] [place] [address], [address] [place] [address], Adobe Layer Helper: Gopal Hamilton MD [facility] Date/Time: [facility] Results Received Date/Time: [facility] Reported Date/Time: Performed By: #### 9 68T, 54653F, %8293, 82302E, 6399, 496X #### [facility] [address] [place] [address] Eosinophils/100 WBC (Bld) 2.9 % Normal [facility] Comment on above: Order Comment: [facility] performed at: [facility] [employer] [facility], [address] , [address] [place] [address], [address] [place] [address], Adobe Layer Helper: Gopal Hamilton MD [facility] Date/Time: [facility] Results Received Date/Time: [facility] Reported Date/Time: Performed By: #### 9 68T, 28799J, %8293, 94965P, 6399, 496X #### [facility] [address] [place] [place] [address] Erythrocyte distribution width (RBC) [Ratio] 12.9 % Normal 11.0-15.0 [facility] Comment on above: Order Comment: [facility] performed at: Locally, [employer] [facility], [address] [place] [address], [address] [place] [address], [address] [place] [address], Adobe Layer Helper: Gopal Hamilton MD [facility] Date/Time: [facility] Results Received Date/Time: [facility] Reported Date/Time: Performed By: #### 9 68T, 30171V, %8293, 02675W, 6399, 496X #### [facility] [address] [place] [address] Hematocrit (Bld) [Volume fraction] 38.1 % Normal 35.0-45.0 [facility] Comment on above: Order Comment: [facility] performed at: [facility] [employer] [facility], [address] [place] [address], [address] [place] [address], [address] [place] [address], Adobe Layer Helper: Gopal Hamilton MD [facility] Date/Time: [facility] Results Received Date/Time: [facility] Reported Date/Time: Performed By: #### 9 68T, 67960W, %8293, 08766W, 6399, 496X #### [facility] [address] [place] [address] Hemoglobin (Bld) [Mass/Vol] 12.9 g/dL Normal 11.7-15.5 [facility] Comment on above: Order Comment: [facility] performed at: [facility] [employer] [facility], [address] [place] [address], [address] [place] [address], [address] [place] [address], Adobe Layer Helper: Gopal Hamilton MD [facility] Date/Time: [facility] Results Received Date/Time: [facility] Reported Date/Time: Performed By: #### 9 68T, 80233P, %8293, 15656S, 6399, 496X #### [facility] [address] [place] [address] Lymphocytes (Bld) [#/Vol] 1.375 10*3/uL Normal 850-3900 [facility] Comment on above: Order Comment: [facility] performed at: [facility] [employer] [facility], [address] [place] [address], [address] [place] [address], [address] [place] [address], Adobe Layer Helper: Gopal Hamilton MD [facility] Date/Time: [facility] Results Received Date/Time: [facility] Reported Date/Time: Performed By: #### 9 68T, 63593O, %8293, 85863Z, 6399, 496X #### [facility] [address] [place] [address] Lymphocytes/100 WBC (Bld) 23.3 % Normal [facility] Comment on above: Order Comment: [facility] performed at: [facility] [employer] [facility], [address] [place] [address], [address] [place] [address], [address] [place] [address], Adobe Layer Helper: Gopal Hamilton MD [facility] Date/Time: [facility] Results Received Date/Time: [facility] Reported Date/Time: Performed By: #### 9 68T, 85606W, %8293, 16413O, 6399, 496X #### [facility] [address] [place] [address] MCH (RBC) [Entitic mass] 30.0 pg Normal 27.0-33.0 [facility] Comment on above: Order Comment: [facility] performed at: [facility] [employer] [facility], [address] [place] [address], [address] [place] [address], [address] [place] [address], Adobe Layer Helper: Gopal Hamilton MD [facility] Date/Time: [facility] Results Received Date/Time: [facility] Reported Date/Time: Performed By: #### 9 68T, 73996O, %8293, 99108R, 6399, 496X #### [facility] [address] [place] [address] MCHC (RBC) [Mass/Vol] 33.9 g/dL Normal 32.0-36.0 [facility] Comment on above: Order Comment: [facility] performed at: [facility] [employer] [facility], [address] [place] [address], [address] [place] [address], [address] [place] [address], Adobe Layer Helper: Gopal Hamilton MD [facility] Date/Time: [facility] Results Received Date/Time: [facility] Reported Date/Time: Performed By: #### 9 68T, 08498I, %8293, 96281B, 6399, 496X #### [facility] [address] [place] [address] MCV (RBC) [Entitic vol] 88.6 fL Normal 80.0-100.0 [facility] Special[facility] Comment on above: Order Comment: [facility] performed at: [facility], [address] [place] [address], [address] [place] [address], [address] [place] [address], Adobe Layer Helper: Gopal Hamilton MD [facility] Date/Time: [facility] Results Received Date/Time: [facility] Reported Date/Time: Performed By: #### 9 68T, 47947P, %8293, 38005V, 6399, 496X #### [facility] [address] [place] [address] MONOABS 460 cells/uL Normal 200-950 [facility] Comment on above: Order Comment: [facility] performed at: [facility], [address] [place] [address], [address] [place] [address], [address] [place] [address], Adobe Layer Helper: oGpal Hamilton MD [facility] Date/Time: [facility] Results Received Date/Time: [id number] [facility] Reported Date/Time: Performed By: #### 9 68T, 87724V, %8293, 33219T, 6399, 496X #### [facility] [address] [place] [address] Monocytes/100 WBC (Bld) 7.8 % Normal [facility] Comment on above: Order Comment: [facility] performed at: [facility] [employer] [facility], [address] [facility], [address] [place] [address], [address] [place] [address], Adobe Layer Helper: Gopal Hamilton MD [facility] Collection Date/Time: [facility] Results Received Date/Time: [facility] Reported Date/Time: Performed By: #### 9 68T, 49528I, %8293, 56560C, 6399, 496X #### [facility] [address] [place] [address] Neutrophils (Bld) [#/Vol] 3.835 10*3/uL Normal 6872-4806 [facility] Comment on above: Order Comment: [facility] performed at: [facility] [employer] [facility], [address] [place] [address], [address] [place] [address], [address] [place] [address], Adobe Layer Helper: Gopal Hamilton MD [facility] Date/Time: [facility] Results Received Date/Time: [facility] Reported Date/Time: Performed By: #### 9 68T, 19959W, %8293, 54494I, 6399, 496X #### [facility] [address] [place] [address] Neutrophils/100 WBC (Bld) 65 % Normal [facility] Comment on above: Order Comment: [facility] performed at: [facility] [employer] [facility], [address] , [address] [place] [address], [address] [place] [address], Adobe Layer Helper: Gopal Hamilton MD [facility] Date/Time: [facility] Results Received Date/Time: [facility] Reported Date/Time: Performed By: #### 9 68T, 90358L, %8293, 35930L, 6399, 496X #### [facility] [address] [place] [address] Platelet mean volume (Bld) [Entitic vol] 9.3 fL Normal 7.5-12.5 [facility] Comment on above: Order Comment: [facility] performed at: [facility] [employer] [facility], [address] [facility], [address] [place] [address], [address] [place] [address], Adobe Layer Helper: Gopal Hamilton MD [facility] Date/Time: [facility] Results Received Date/Time: [facility] Reported Date/Time: Performed By: #### 9 68T, 68810E, %8293, 12076I, 6399, 496X #### [facility] [address] [place] [address] Platelets (Bld) [#/Vol] 409 10*3/uL High 140-400 [facility] Comment on above: Order Comment: [facility] performed at: [facility] [employer] [facility], [address] [facility], [address] [place] [address], [address] [place] [address], Adobe Layer Helper: Gopal Hamilton MD [facility] Date/Time: [facility] Results Received Date/Time: [facility] Reported Date/Time: Performed By: #### 9 68T, 12861K, %8293, 70264R, 6399, 496X #### [facility] [address] [place] [address] RBC (Bld) [#/Vol] 4.30 10*6/uL Normal 3.80-5.10 [facility] Comment on above: Order Comment: [facility] performed at: [facility] [employer] [facility], [address] , [address] [place] [address], [address] [place] [address], Adobe Layer Helper: Gopal Hamilton MD [facility] Date/Time: [facility] Results Received Date/Time: [facility] Reported Date/Time: Performed By: #### 9 68T, 38723P, %8293, 93434B, 6399, 496X #### [facility] [address] [place] [address] WBC (Bld) [#/Vol] 5.9 10*3/uL Normal 3.8-10.8 Jay gambino [place] [facility] Comment on above: Order Comment: [facility] performed at: [facility] [employer] [facility], [address] [place] [address], [address] [place] [address], [address], Adobe Layer Helper: Gopal Hamilton MD [facility] Date/Time: [facility] Results Received Date/Time: [facility] Reported Date/Time: Performed By: #### 9 68T, 33420D, %8293, 21803N, 6399, 496X #### [facility] [address] [place] [address] Q - COMPREHENSIVE METABOLIC PANEL W/EGFRon 03-10-2022 Albumin [Mass/Vol] 4.3 g/dL Normal 3.6-5.1 Jay gambino [facility] Comment on above: Order Comment: [facility] performed at: [facility], [address] [place] [address], [address] [place] [address], [address], Adobe Layer Helper: Gopal Hamilton MD [facility] Date/Time: [facility] Results Received Date/Time: [facility] Reported Date/Time: Performed By: #### 9 68T, 64229S, %8293, 51322Q, 6399, 496X #### [facility] [address] [place] [address] Albumin/Globulin [Mass ratio] 1.7 {ratio} Normal 1.0-2.5 Randa [facility] Comment on above: Order Comment: [facility] performed at: [facility] [employer] [facility], [address] [place] [address], [address] [place] [address], [address] [place] [address], Adobe Layer Helper: Gopal Hamilton MD [facility] Date/Time: [facility] Results Received Date/Time: [facility] Reported Date/Time: Performed By: #### 9 68T, 11316R, %8293, 65924F, 6399, 496X #### [facility] [address] [place] [address] ALP [Catalytic activity/Vol] 134 U/L High 31-125 [facility] Comment on above: Order Comment: [facility] performed at: Locally, [employer] [facility], [address] [place] [address], [address] [place] [address], [address] [place] [address], Adobe Layer Helper: Gopal Hamilton MD [facility] Date/Time: [facility] Results Received Date/Time: [facility] Reported Date/Time: Performed By: #### 9 68T, 18791U, %8293, 77321K, 6399, 496X #### [facility] [address] [place] [address] ALT [Catalytic activity/Vol] 41 U/L High 6-29 [facility] Comment on above: Order Comment: [facility] performed at: [facility] [employer] [facility], [address] [place] [address], [address] [place] [address], [address] [place] [address], Adobe Layer Helper: Gopal Hamilton MD [facility] Date/Time: [facility] Results Received Date/Time: [facility] Reported Date/Time: Performed By: #### 9 68T, 54677S, %8293, 74400Q, 6399, 496X #### [facility] [address] [place] [address] AST [Catalytic activity/Vol] 33 U/L Normal 10-35 [facility] Comment on above: Order Comment: [facility] performed at: [facility] [employer] [facility], [address] [place] [address], [address] [place] [address], [address] [place] [address], Adobe Layer Helper: Gopal Hamilton MD [facility] Date/Time: [facility] Results Received Date/Time: [facility] Reported Date/Time: Performed By: #### 9 68T, 11604K, %8293, 94324A, 6399, 496X #### [facility] [address] [place] [address] BUN/CREA 17 NOT APPLICABLE Normal 6-22 Adrienne brewer [place] [facility] Comment on above: Order Comment: [facility] performed at: [facility] [employer] [facility], [address] [facility], [address] [place] [address], [address] [place] [address], Adobe Layer Helper: Gopal Hamilton MD [facility] Date/Time: [facility] Results Received Date/Time: [facility] Reported Date/Time: Performed By: #### 9 68T, 90789D, %8293, 45431Q, 6399, 496X #### [facility] [address] [place] [address] Calcium [Mass/Vol] 9.6 mg/dL Normal 8.6-10.2 [facility] Comment on above: Order Comment: [facility] performed at: [facility] [employer] [facility], [address] , [address] [place] [address], [address] [place] [address], Adobe Layer Helper: Gopal Hamilton MD [facility] Date/Time: [facility] Results Received Date/Time: [facility] Reported Date/Time: Performed By: #### 9 68T, 68697K, %8293, 36050Q, 6399, 496X #### [facility] [address] [place] [address] Chloride [Moles/Vol] 103 mmol/L Normal 98-110 Gen rodriguez [facility] Comment on above: Order Comment: [facility] performed at: [facility] [employer] [facility], [address] , [address] [place] [address], [address] [place] [address], Adobe Layer Helper: Gopal Hamilton MD [facility] Date/Time: [facility] Results Received Date/Time: [facility] Reported Date/Time: Performed By: #### 9 68T, 31026G, %8293, 86666A, 6399, 496X #### [facility] [address] [place] [address] CO2 [Moles/Vol] 27 mmol/L Normal 20-32 [facility] Comment on above: Order Comment: [facility] performed at: [facility], [employer] [facility], [address] [place] [address], [address] [place] [address], [address] [place] [address], Adobe Layer Helper: Gopal Hamilton MD [facility] Date/Time: [facility] Results Received Date/Time: [facility] Reported Date/Time: Performed By: #### 9 68T, 39114F, %8293, 30195P, 6399, 496X #### [facility] [address] [place] [address] Creatinine [Mass/Vol] 0.65 mg/dL Normal 0.50-1.10 [facility] Comment on above: Order Comment: [facility] performed at: [facility], [employer] [facility], [address] [facility], [address] [place] [address], [address] [place] [address], Adobe Layer Helper: Gopal Hamilton MD [facility] Date/Time: [facility] Results Received Date/Time: [facility] Reported Date/Time: Performed By: #### 9 68T, 59284H, %8293, 72183Y, 6399, 496X #### [facility] [address] [place] [address] eGFRAA ([facility]) 121 mL/min/1.73m2 Normal > OR = 60 [facility] Comment on above: Order Comment: [facility] performed at: [facility], [employer] [facility], [address] [facility], [address] [place] [address], [address] [place] [address], Adobe Layer Helper: Gopal Hamilton MD [facility] Date/Time: [facility] Results Received Date/Time: [facility] Reported Date/Time: Performed By: #### 9 68T, 77923T, %8293, 17717M, 6399, 496X #### [facility] [address] [place] [address] eGFRNAA ([facility]) 104 mL/min/1.73m2 Normal > OR = 60 No rthern [place] [facility] Comment on above: Order Comment: [facility] performed at: Locally, [employer] [facility], [address] [place] [address], [address] [place] [address], [address] [place] [address], Adobe Layer Helper: Gopal Hamilton MD [facility] Date/Time: [facility] Results Received Date/Time: [facility] Reported Date/Time: Performed By: #### 9 68T, 81775X, %8293, 25610O, 6399, 496X #### [facility] [address] [place] [address] Globulin (S) [Mass/Vol] 2.5 g/dL Normal 1.9-3.7 [facility] Comment on above: Order Comment: [facility] performed at: [facility], [employer] [facility], [address] [place] [address], [address] [place] [address], [address] [place] [address], Adobe Layer Helper: Gopal Hamilton MD [facility] Date/Time: [facility] Results Received Date/Time: [facility] Reported Date/Time: Performed By: #### 9 68T, 03878N, %8293, 73575O, 6399, 496X #### [facility] [address] [place] [address] Glucose [Mass/Vol] 94 mg/dL Normal 65-99 [facility] Specialist Comment on above: Order Comment: [facility] performed at: [facility], [employer] [facility], [address] [place] [address], [address] [place] [address], [address] [place] [address], Adobe Layer Helper: Gopal Hamilton MD [facility] Date/Time: [facility] Results Received Date/Time: [facility] Reported Date/Time: Result Comment: Fasting reference interval Performed By: #### 9 68T, 13543M, %8293, 35469C, 6399, 496X #### [facility] Default [address] [place] [address] Potassium [Moles/Vol] 4.4 mmol/L Normal 3.5-5.3 Venita larson [place] [facility] Comment on above: Order Comment: [facility] Testing performed at: [facility], [address] [place] [address], [address] [place] [address], [address] [place] [address], Adobe Layer Helper: Gopal Hamilton MD [facility] Collection Date/Time: [facility] Results Received Date/Time: [facility] Reported Date/Time: Performed By: #### 9 68T, 02934P, %8293, 96256H, 6399, 496X #### [facility] [address] [place] [address] Protein [Mass/Vol] 6.8 g/dL Normal 6.1-8.1 Jay gambino [place] [employer] Comment on above: Order Comment: [facility] Testing performed at: [facility], [address] [place] [address], [address] [place] [address], [address] [place] [address], Adobe Layer Helper: Gopal Hamilton MD [facility] Collection Date/Time: [facility] Results Received Date/Time: [facility] Reported Date/Time: Performed By: #### 9 68T, 03272B, %8293, 96930E, 6399, 496X #### [facility] [address] [place] [address] Sodium [Moles/Vol] 138 mmol/L Normal 135-146 Jay gambino [place] [employer] Comment on above: Order Comment: [facility] performed at: [facility], [address] , [address] [place] [address], [address] [place] [address], Adobe Layer Helper: Gopal Hamilton MD [facility] Collection Date/Time: [facility] Results Received Date/Time: [facility] Reported Date/Time: Performed By: #### 9 68T, 53281G, %8293, 15671W, 6399, 496X #### [facility] [address] [place] [address] TBIL <0.3 Normal 0.2-1.2 [facility] Comment on above: Order Comment: [facility] Testing performed at: [facility], [address] [facility], [address] [place] [address], [address] [place] [address], Adobe Layer Helper: Gopal Hamilton MD [facility] Collection Date/Time: [facility] Results Received Date/Time: [facility] Reported Date/Time: Performed By: #### 9 68T, 84872P, %8293, 48998Z, 6399, 496X #### [facility] [address] [place] [address] Urea nitrogen [Mass/Vol] 11 mg/dL Normal 7-25 [facility] Comment on above: Order Comment: [facility] Testing performed at: [facility], [address] [facility], [address] [place] [address], [address] [place] [address], Adobe Layer Helper: Gopal Hamilton MD [facility] Collection Date/Time: [facility] Results Received Date/Time: [facility] Reported Date/Time: Performed By: #### 9 68T, 31057G, %8293, 61197G, 6399, 496X #### [facility] [address] [place] [address] Q - DLDL REFLEXon 03-10-2022 Cholesterol in LDL [Mass/Vol] 87 mg/dL Normal <100 [place] [facility] Comment on above: Order Comment: [facility] Testing performed at: [facility], [address] , [address] [place], [place], [address] [place] [address], Adobe Layer Helper: Gopal Hamilton MD [facility] Collection Date/Time: [facility] Results Received Date/Time: [facility] Reported Date/Time: Result Comment: Desirable range <100 mg/dL for primary prevention; <70 mg/dL for patients with CHD or diabetic patients with > or = 2 CHD risk factors. Performed By: #### 9 68T, 62563Q, %8293, 31555R, 6399, 496X #### [facility] [address] [place] [address] Q - HEMOGLOBIN A1Con HEMOGLOBIN A1c 5.0 % of total Hgb Normal <5.7 No rthern [place] [employer] Comment on above: Order Comment: [facility] Testing performed at: [facility], [address] [facility], [address] [place] [address], [address] [place] [address], Adobe Layer Helper: Gopal Hamilton MD [facility] Collection Date/Time: [facility] [...] diagnosis of diabetes in children. According to Citizen [place] Diabetes Association (ADA) guidelines, hemoglobin A1c <7.0% represents optimal control in non- diabetic patients. Different metrics may apply to specific patient populations. Standards of Medical Care in Diabetes(ADA). Performed By: #### 9 68T, 94290S, %8293, 77510I, 6399, 496X #### [facility] [address] [place] [address] Q - Lipid Panelon 03-10-2022 Cholesterol [Mass/Vol] 230 mg/dL High <200 No rthern [place] [employer] Comment on above: Order Comment: [facility] Testing performed at: [facility], [address] [place] [address], [address] [place] [address], [address] [place] [address], Adobe Layer Helper: Gopal Hamilton MD [facility] Collection Date/Time: [facility] Results Received Date/Time: [facility] Reported Date/Time: Performed By: #### 9 68T, 16207F, %8293, 21831T, 6399, 496X #### [facility] [address] [place] [address] Cholesterol in HDL [Mass/Vol] 52 mg/dL Normal > OR = 50 [facility] Comment on above: Order Comment: [facility] Testing performed at: [facility], [address] [facility], [address] [place] [address], [address] [place] [address], Adobe Layer Helper: Gopal Hamilton MD [facility] Collection Date/Time: [facility] Results Received Date/Time: [facility] Reported Date/Time: Performed By: #### 9 68T, 98980N, %8293, 42410T, 6399, 496X #### [facility] [address] [place] [address] Cholesterol.total/Chol esterol in HDL [Mass ratio] 4.4 {ratio} Normal <5.0 [facility] Comment on above: Order Comment: [facility] performed at: [facility], [address] [facility], [address] [place] [address], [address] [place] [address], Adobe Layer Helper: Gopal Hamilton MD [facility] Collection Date/Time: [facility] Results Received Date/Time: [facility] Reported Date/Time: Performed By: #### 9 68T, 83864Z, %8293, 42934M, 6399, 496X #### [facility] [address] [place] [address] LDLD SEE NOTE Normal [facility] Comment on above: Order Comment: [facility] performed at: [facility], [address] [facility], [address] [place] [address], [id number], Adobe Layer Helper: Gopal Hamilton MD [facility] Collection Date/Time: [facility] [...] LDL-C. Estevan SCHILLING et al. ZANA. 2013;310(19): 7859-0230 (http://[email or web address].Mezeo Software/faq/JZU455) Performed By: #### 9 68T, 11195G, %8293, 24905U, 6399, 496X #### [facility] [address] [place] [address] NON HDL CHOLESTEROL 178 mg/dL (calc) High <130 [facility] Comment on above: Order Comment: [facility] performed at: [facility], [address] , [address] [place], [address], Adobe Layer Helper: Gopal Hamilton MD [facility] Collection Date/Time: [facility] Results Received Date/Time: [facility] Reported Date/Time: Result Comment: For patients with diabetes plus 1 major ASCVD risk factor, treating to a non-HDL-C goal of <100 mg/dL (LDL-C of <70 mg/dL) is considered a therapeutic option. Performed By: #### 9 68T, 10117P, %8293, 49480K, 6399, 496X #### [facility] [address] [place] [address] Triglyceride [Mass/Vol] 410 mg/dL High <150 [facility] Comment on above: Order Comment: [facility] performed at: [facility], [facility], [address] , [address] [place] [address], [address] [place] [address], Adobe Layer Helper: Gopal Hamilton MD [facility] Collection Date/Time: [facility] Results Received Date/Time: [facility] Reported Date/Time: Result Comment: If a non-fasting specimen was collected, consider repeat triglyceride testing on a fasting specimen if clinically indicated. João et al. J. of Clin. Lipidol. 2015;9:129-169. Performed By: #### 9 68T, 65067E, %8293, 48034F, 6399, 496X #### [facility] Default [address] [place] [address] Q - TROPONIN Ion 03-10-2022 TROPONIN I 3 ng/L Normal < OR = 47 [facility] Specialist Comment on above: Order Comment: [facility] performed at: [facility], [address] , [address] [place] [address], [address] [place] [address], Adobe Layer Helper: Gopal Hamilton MD [facility] Collection Date/Time: [facility] Results Received Date/Time: [facility] Reported Date/Time: Result Comment: In accord with published recommendations, serial testing of troponin I at intervals of 2 to 4 hours for up to 12 to 24 hours is suggested in order to corroborate a single troponin I result. An elevated troponin alone is not sufficient to make the diagnosis of [place]. Performed By: #### 9 68T, 77681T, %8293, 01351Z, 6399, 496X #### [facility] Default [address] [place] [address] UA DIP, URINE (POC)on 2021 BILIRUBIN UA (POCT) Negative Negative [facility] CLARITY UA (POCT) Clear [facility] COLOR UA (POCT) Yellow [facility] GLUCOSE UA (POCT) Negative Negative mg/dL [facility] HEMOGLOBIN/BLOOD UA (POCT) Negative Negative [facility] KETONE UA (POCT) Negative Negative mg/dL [facility] LEUKOCYTES U[facility] (POCT) Negative [facility]) Negative Negative [facility] PH UA (POCT) 5.0 4.5 - 8.0 [facility] Protein Ql (U) Trace Abnormal Negative mg/dL [facility] SPECIFIC GRAVITY UA (POCT) >=1.030 1.005 - 1.030 [facility] UROBILINOGEN UA (POCT) 0.2 E.U./dL Brenda l E.U./dL [facility] CNTHERAPYon 01-31-2022 CNTHERAPY OT/PT/Speech Visit (PTLHO) ----- MARY LEAL ([id number]) 1970 F Date Time Provider Department 01/31/22 10:30 AM NETWON [facility] PTSAVANNA[facility] Date Time Provider Department [place] 01/31/2022 10:30 AM [id number]: [facility] [503] [...] (FLONASE) 50 mcg/actuation nasal spray Use 1 Dougherty in each nostril once daily. - carBAMazepine [...] by mouth every morning BEFORE BREAKFAST - kcvjgquzfbx-mavjyexnm-tna anter (TRELEGY ELLIPTA) 100-62.5-25 mcg Inhale 1 Puff as instructed once daily. - atenolol (TENORMIN) 50 mg tablet Take 50 mg by mouth once daily. ----- [facility] CNTHERAPYon 01-24-2022 CNTHERAPY OT/PT/Speech Visit (PTLHO) ----- MARY LEAL ([id number]) 1970 F Date Time Provider Department 01/24/22 10:30 AM NEWTON [facility] Date Time Provider Department [place] 01/24/2022 10:30 AM [id number], JILL [facility] Reason for Visit: Physical Therapy [503] [...] (FLONASE) 50 mcg/actuation nasal spray Use 1 Dougherty in each nostril once daily. - carBAMazepine [...] by mouth every morning BEFORE BREAKFAST - hyuxaetpolg-iqawjvwfw-lnw anter (TRELEGY ELLIPTA) 100-62.5-25 mcg Inhale 1 Puff as instructed once daily. - atenolol (TENORMIN) 50 mg tablet Take 50 mg by mouth once daily. ----- [facility] CNTHERAPYon 01-18-2022 CNTHERAPY OT/PT/Speech Visit (PTLHO) ----- MARY LEAL ([id number]) 1970 F Date Time Provider Department 3/15/22 12:15 PM [facility] Date Time Provider Department [place] 01/18/2022 12:15 PM [id number] Reason for Visit: PT Eval [747] [...] (FLONASE) 50 mcg/actuation nasal spray Use 1 Dougherty in each nostril once daily. - carBAMazepine [...] by mouth every morning BEFORE BREAKFAST - fejhzckoxah-wosoevelj-dyh anter (TRELEGY ELLIPTA) 100-62.5-25 mcg Inhale 1 Puff as instructed once daily. - atenolol (TENORMIN) 50 mg tablet Take 50 mg by mouth once daily. ----- Letter Text [facility] 12-27-2021 [facility] HNO ID: [id number] Author: Sonido Owen MD Service: Colorectal Author Type: Resident Type: Discharge Summary Filed: 12/27/2021 3:55 PM Note Text: ----- Attestation signed by Mary Obrien MD at 12/29/2021 4:11 PM [facility] STAFF PHYSICIAN NOTE OF PERSONAL [...] the PACU and was transferred to the [facility]. Postoperatively, the patient recovered well. Her [...] mg Finesse (more content not included)... Normal [facility] CONSULTon 12-27-2021 CONSULT HNO ID: [id number] Author: Trini Hines, MAKI Service: Wound/Ostomy Author Type: Registered Nurse Type: Consults Filed: 12/27/2021 3:32 PM Note Text: STOMA CARE POST-OPERATIVE ASSESSMENT AND PATIENT EDUCATION Patient Name: Mary Leal Date: December 27, 2021 Time: 3:20 PM ET Care Outcome: Ms. Leal was seen today on the [facility] for ostomy education and a pouch change lesson. ET's Next Scheduled Visit: Complete. STOMA ASSESSMENT Stoma type: Loop ileostomy Diameter: 35 mm with and extra 1 mm cut on the medial side of the pouch. Location: RLQ Protrusion: Budded, Os points downward Mucosal condition and color: Red and [place] and moist. Boni: No Mucocutaneous Junction: Intact [...] one piece cut to fit drainable pouch (#67515) and Coloplast Brava moldable ring (2mm) #[id number]. Brava barrier strips, product # [id number] applied around the border of the pouch. INCISION Degree of approximation: 100% Approximating devices: Surgical Glue Drainage: None Method of Management: ELENI Time Increment: 45 minutes Comments: NA Supplies [...] FROM THE CHART OR MODIFY PRINTED COPY. [facility] NURSING PROGon 12-27-2021 NURSING PROG HNO ID: [id number] Author: Marizol Hankins RN Service: ? Author Type: Registered Nurse Type: Nursing Progress Note Filed: 12/27/2021 4:39 PM Note Text: Nursing Progress Note Patient Name: Mary Leal Patient Location: [place] [address] [address] Daily Note: Pt AANDO x 3. Lap site TELECOMMUNICATIONS CABLE JOINTER with glue, no drainage. Pt on GI [...] This note was completed by: Marizol Hankins [facility] NUTRITIONon 12-27-2021 NUTRITION HNO ID: [id number] Author: Merced Morales DTR Service: Nutrition Therapy Author Type: Aerodynamicist Type: Nutrition Filed: 12/27/2021 12:16 PM Note Text: NUTRITION THERAPY SLURRY TANK OPERATOR NOTE SERVICE DATE: 12/27/2021 SERVICE TIME: 10:00 [...] DATE: December 27, 2021 TIME: 12:15 PM [facility] PT EDon 12-27-2021 PT ED HNO ID: [id number] Author: Merced Morales DTR Service: Nutrition Therapy Author Type: Aerodynamicist Type: Patient Education Filed: 12/27/2021 12:16 PM [...] 27, 2021 TIME: 12:16 PM PAGER: Normal [facility] Basic Metabolic Panlon 12-26 Anion gap [Moles/Vol] 9 mmol/L Normal 9-18 [facility] Comment on above: Performed By: #### B MP #### [place] [id number] Calcium [Mass/Vol] 8.5 mg/dL Normal 8.5-10.5 [facility] Comment on above: Performed By: #### B MP #### [place] [phone] Chloride [Moles/Vol] 102 mmol/L Normal 98-110 [facility] Comment on above: Performed By: #### B MP #### [place] [id number] CO2 [Moles/Vol] 28 mmol/L Normal 23-32 [facility] Comment on above: Performed By: #### B MP #### [place] [id number] Creatinine [Mass/Vol] 0.62 mg/dL Low 0.70-1.40 [facility] Comment on above: Performed By: #### B MP #### [place] [id number] eGFR- Amer. >60 Normal >59 [facility] Comment on above: Performed By: #### B MP #### [place] [id number] eGFR-All Other Races >60 Normal >59 [facility] Comment on above: Result Comment: eGFR [...] [email or web address]. Performed By: #### B MP #### [place] [id number] Glucose [Mass/Vol] 71 mg/dL Normal 65-100 [facility] Comment on above: Performed By: #### B MP #### [place] [id number] Potassium [Moles/Vol] 4.0 mmol/L Normal 3.5-5.0 [facility] Comment on above: Performed By: #### B MP #### [place] [address] Sodium [Moles/Vol] 139 mmol/L Normal 132-148 [facility] Comment on above: Performed By: #### B MP #### [address] Urea nitrogen [Mass/Vol] 10 mg/dL Normal 8-25 [facility] Comment on above: Performed By: #### B MP #### [place] [id number] NURSING PROGon 12-26-2021 NURSING PROG HNO ID: [id number] Author: Juan Crowley RN Service: Nursing Author Type: Registered Nurse Type: Nursing Progress Note Filed: 12/26/2021 5:25 PM Note Text: Nursing Progress Note Patient Name: Mary Leal Patient Location: [place] [address] [address] Daily Note: Call discontinued as directed in orders. 700cc output from call. 250cc NS instilled and then call catheter removed. Patient assisted to BSC and voided 200cc pink tinged urine. Patient assisted back to bed, not wanting to go to chair. Call light in reach. This note was completed by: Juan Crowley [facility] NURSING PROG HNO ID: [id number] Author: Juan Crowley, RN Service: Nursing Author Type: Registered Nurse Type: Nursing Progress Note Filed: 12/26/2021 3:51 PM Note Text: Nursing Progress Note Patient Name: Mary Leal Patient [id number] Daily Note: Patient AANDOx3. VSS. 2L NC POx. IVF infusing as ordered. Dilaudid HEARTH FEEDER, OXY IR on for pain. Patient drowsy yet easily arousable. Lap sites and transverse incision TELECOMMUNICATIONS CABLE JOINTER with glue. Ileostomy draining liquid brown. Call draining clear yellow. PAS on. No edema. Fa,saman at bed side. Call light in reach. This note was completed by: Juan Crowley [facility] Basic Metabolic Panlon 12-25 Anion gap [Moles/Vol] 9 mmol/L Normal 9-18 [facility] Comment on above: Performed By: #### B MP #### [facility] [address] [place] [address] Calcium [Mass/Vol] 8.5 mg/dL Normal 8.5-10.5 [facility] Comment on above: Performed By: #### B MP #### [place] [phone] Chloride [Moles/Vol] 104 mmol/L Normal 98-110 [facility] Comment on above: Performed By: #### B MP #### [place] [phone] CO2 [Moles/Vol] 28 mmol/L Normal 23-32 [facility] Comment on above: Performed By: #### B MP #### [place] [phone] Creatinine [Mass/Vol] 0.72 mg/dL Normal 0.70-1.40 [facility] Comment on above: Performed By: #### B MP #### [place] [address] eGFR- Amer. >60 Normal >59 [facility] Comment on above: Performed By: #### B MP #### [place] [phone] eGFR-All Other Races >60 Normal >59 [facility] Comment on above: Result Comment: eGFR [...] [email or web address]/[email or web address]. Performed By: #### B MP #### [place] [phone] Glucose [Mass/Vol] 91 mg/dL Normal 65-100 [facility] Comment on above: Performed By: #### B MP #### [facility] [address] [place] [address] Potassium [Moles/Vol] 4.0 mmol/L Normal 3.5-5.0 [facility] Comment on above: Performed By: #### B MP #### [place] [address] Sodium [Moles/Vol] 141 mmol/L Normal 132-148 [facility] Comment on above: Performed By: #### B MP #### [place] [address] Urea nitrogen [Mass/Vol] 12 mg/dL Normal 8-25 [facility] Comment on above: Performed By: #### B MP #### [place] [address] CASE MGT INIT ASSESon 2021 CASE MGT INIT ASSES HNO ID: [id number] Author: TITO Whitt Service: ? 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 Last discharge within 30 days: No Advance Directive: Current Advance Directive: Health Care Power of Parking Enforcer In Chart: No Health LiteracyHow often do [...] None Has the Patient Been in a Intermediate Facility in the Past 30 days?: No [...] Completely I feel financially burdened by my dru-tq-yysecl expenses for my prescription medication:: 0 - Disagree Completely Risk Score: 0 Patient is categorized as: Low risk < 2 Are you interested in bedside delivery of your medications? Yes Is Patient Psychosocially Complex?: No ASSESSMENT AND PLAN: Medical Needs: Medical Needs: None Psychosocial Needs: Psychosocial Needs: None FREEDOM OF CHOICE EXPLAINED: [place] of Choice Given: Yes Level of Care Discussed: Home Care Financial Disclosure Provided: Yes Financial Disclosure Comments: careport Provider List: Home Care Provider list within the patient's requested geographic area shared with the patient/family: Yes within: 15 miles of zip code: [address] Quality and resource use metrics shared with [...] bedside with pt during assessment. Charo Obando [phone]. Home care referrals sent. Daughter to transport at time of discharge. SIGNATURE: TITO Whitt PATIENT NAME: Mary Leal DATE: December 25, 2021 TIME: 11:39 AM PAGER/CONTACT #: [phone] Normal [facility] CBC and Differentialon 12-25 Abs Baso 0.03 k/uL Normal <0.11 [facility] Comment on above: Performed By: #### 5 7021-8 #### [facility] CLIA [id number] [address] [place] [address] [place] Abs [place] 0.45 k/uL Normal <0.87 [facility] Comment on above: Performed By: #### 5 7021-8 #### [facility] CLIA [id number] [address] [place] [address] STATES OF [facility] Abs Neut 3.85 k/uL Normal 1.45-7.50 [facility] Comment on above: Performed By: #### 5 7021-8 #### [facility] CLIA [id number] [address] [place] [address] [place] Absolute nRBC <0.01 Normal <0.01 [facility] Comment on above: Performed By: #### 5 7021-8 #### [facility] CLIA [id number] [address] [place] [address] [place] Basophils/100 WBC (Bld) 0.5 % Normal [facility] Comment on above: Performed By: #### 5 7021-8 #### [facility] CLIA [id number] [address] [place] [address] [place] DTYPE Auto Diff Normal [facility] Comment on above: Performed By: #### 5 7021-8 #### [facility] CLIA [id number] [address] [place] [address] [place] Eosinophils (Bld) [#/Vol] 0.14 10*3/uL Normal <0.46 [facility] Comment on above: Performed By: #### 5 7021-8 #### [facility] CLIA [id number] [place] [address] [place] Eosinophils/100 WBC (Bld) 2.3 % Normal [facility] Comment on above: Performed By: #### 5 7021-8 #### [facility] CLIA [id number] [address] [place] [address] OF [place] Erythrocyte distribution width (RBC) [Ratio] 11.6 % Normal 11.5-15.0 [facility] Comment on above: Performed By: #### 5 7021-8 #### [facility] CLIA [id number] [address] [place] [address] [place] Hematocrit (Bld) [Volume fraction] 35.2 % Low 36.0-46.0 [facility] Comment on above: Performed By: #### 5 7021-8 #### [facility] CLIA [id number] [address] [place] [address] [place] Hemoglobin (Bld) [Mass/Vol] 11.6 g/dL Normal 11.5-15.5 [facility] Comment on above: Performed By: #### 5 7021-8 #### [facility] CLIA [id number] [address] [place] [address] [place] Lymphocytes (Bld) [#/Vol] 1.47 10*3/uL Normal 1.00-4.00 [facility] Comment on above: Performed By: #### 5 7021-8 #### [facility] CLIA [id number] [address] [place] [address] [place] Lymphocytes/100 WBC (Bld) 24.7 % Normal [facility] Comment on above: Performed By: #### 5 7021-8 #### [facility] CLIA [id number] [address] [place] [address] [place] MCH 29.5 pG Normal 26.0-34.0 [facility] Comment on above: Performed By: #### 5 7021-8 #### [facility] CLIA [id number] [address] [place] [address] [place] MCHC (RBC) [Mass/Vol] 33.0 g/dL Normal 30.5-36.0 [facility] Comment on above: Performed By: #### 5 7021-8 #### [facility] CLIA [id number] [address] [place] [address] [place] MCV (RBC) [Entitic vol] 89.6 fL Normal 80.0-100.0 [facility] Comment on above: Performed By: #### 5 7021-8 #### [facility] CLIA [id number] [address] [place] [address] [place] Monocytes/100 WBC (Bld) 7.6 % Normal [facility] Comment on above: Performed By: #### 5 7021-8 #### [facility] CLIA [id number] [address] [place] [address] [place] Neutrophils/100 WBC (Bld) 64.9 % Normal [facility] Comment on above: Performed By: #### 5 7021-8 #### [facility] CLIA [id number] [address] [place] [address] [place] NRBCs 0.0 /100 WBC Normal 0 [facility] Comment on above: Performed By: #### 5 7021-8 #### [facility] CLIA [id number] [address] [place] [address] [place] Platelet mean volume (Bld) [Entitic vol] 9.0 fL Normal 9.0-12.7 [facility] Comment on above: Performed By: #### 5 7021-8 #### [facility] CLIA [id number] [address] [place] [address] [place] Platelets (Bld) [#/Vol] 271 10*3/uL Normal 150-400 [facility] Comment on above: Performed By: #### 5 7021-8 #### [facility] CLIA [id number] [address] [place] [address] [place] RBC (Bld) [#/Vol] 3.93 10*6/uL Normal 3.90-5.20 [facility] Comment on above: Performed By: #### 5 7021-8 #### [facility] CLIA [id number] [address] [place] [address] [facility] WBC (Bld) [#/Vol] 5.96 10*3/uL Normal 3.70-11.00 [facility] Comment on above: Performed By: #### 5 7021-8 #### [facility] CLIA [id number] [address] [place] [id number] [facility] CONSULTon 12-25-2021 CONSULT HNO ID: [id number] Author: Tri Kowalski APRN.LINING CLOSER Service: Wound/Ostomy Author Type: Nurse Practitioner Type: Consults Filed: 12/25/2021 11:37 AM Note Text: OSTOMY SERVICE CONSULT HOLLOW TILE PARTITION ERECTOR SERVICE DATE: 12/25/2021 SERVICE TIME: 1015 Consultation [...] HX 07/2021 revision - VAGINAL HYSTERECTOMY 2014 [facility] 10/2015 for endometriosis, has remaining both Current [...] mL 20 mEq INTRAVENOUS PRN - HYDROmorphone HEARTH FEEDER 0.5 mg/mL in NaCl 0.9% 100 mL [...] with h (more content not included)... Normal [facility] NURSING PROGon 12-25-2021 NURSING PROG HNO ID: [id number] Author: Marilyn Henning, MAKI Service: ? Author Type: Registered Nurse Type: Nursing Progress Note Filed: 12/25/2021 7:01 PM Note Text: Nursing Progress Note Patient Name: Mary Leal Patient [id number]/MJ3Q-15 Daily Note: 0930 Pt AANDOx3. Lap sites intact. ABD tender. HEARTH FEEDER pump running. Stoma beefy red, dark brown liquid output. Pt stated that the eye pressure felt overnite has resolved. Call remains in place until OBGYN sees pt 12/26. Pt requesting PO pain medication. 1100 Pt up to chair. [address] Ontiveros bedside. 5mg oxy ordered q4 PRN. This note was completed by: Marilyn Henning [facility] NURSING PROG HNO ID: [id number] Author: Annette Ford RN Service: ? Author Type: Registered Nurse Type: Nursing Progress Note Filed: 12/25/2021 6:12 AM Note Text: Nursing Progress Note Patient Name: Mary Leal Patient Location: [place] [address] [address] Daily Note: Pt has been complaining of [...] This note was completed by: Annette Ford [facility] ANES POSTPROC EVALon 022 ANES POSTPROC EVAL HNO ID: [id number] Author: Charisse Aggarwal MD Service: Anesthesiology Author Type: Anesthesiologist Type: Anesthesia Postprocedure Evaluation Filed: 12/24/2021 4:17 PM Note Text: POST ANESTHESIA EVALUATION NOTE : 1970 Procedure Summary Date: 12/24/21 Room / Location: [facility] OR10 / [facility] OR Anesthesia Start: 810 Anesthesia Stop: 4 Procedures: PROCTOPEXY LAPAROSCOPIC (N/A Abdomen) ANTERIOR COLPORRHAPHY [...] December 24, 2021 TIME: 4:17 PM CSN: [id number] [facility] ANES PRE-OPon 12-24-2021 ANES PRE-OP HNO ID: [id number] Author: Chayito Ojeda MD Service: Anesthesiology Author [...] ) CYSTOSCOPY (N/A ) Location: OR10 / OR Surgeons: Mary Obrien MD; Pam Wang [...] 11pm the evening prior to surgery. - smssbpjalpj-rlvajvbtj-xug anter (TRELEGY ELLIPTA) 100-62.5-25 mcg Inhale 1 [...] December 24, 2021 TIME: 7:27 AM CSN: [id number] [facility] BRIEF OP NOTon 12-24-2021 BRIEF OP NOT HNO ID: [id number] Author: Jenifer Ayala MD Service: Colorectal Author Type: Fellow Type: Brief Op Note Filed: 12/24/2021 12:16 PM Note Text: BRIEF OPERATIVE NOTE - COLORECTAL SURGERY Log ID: [id number] Surgery/Procedure Date: 12/24/2021 Incision/Procedure Start Time: 8:50 AM Incision Close/Procedure End Time: Surgeon(s) and Relay Motorman(s): Surgeon(s) and Role: Panel 1: * Mary [...] DATE: December 24, 2021 TIME: 12:10 PM [facility] NURSING PROGon 12-24-2021 NURSING PROG HNO ID: [id number] Author: Marilyn Henning RN Service: ? Author Type: Registered Nurse Type: Nursing Progress Note Filed: 12/24/2021 6:36 PM Note Text: Nursing Progress Note Patient Name: Mary Leal Patient Location: [address] Daily Note: 1816 Pt arrived on floor with 100.2F temperature. Scheduled tylenol administered. Temperature 98.6 at 1816. Surgical incisions ELENI with glue, intact. Ostomy beefy red, producing sweat. Call remains in place. Pt Educated on HEARTH FEEDER pump usage. Daughter bedside. Bed low and locked. This note was completed by: Marilyn Henning [facility] NURSING PROG HNO ID: [id number] Author: Marilyn Henning RN Service: ? Author Type: Registered Nurse Type: Nursing Progress Note Filed: 12/24/2021 4:19 PM Note Text: Nursing Progress Note Patient Name: Mary Leal Patient Location: [address] Transfer Note: Patient transferred into room/unit PK3-33 in stable condition. Actions taken: No futher actions taken at this time. Will continue to monitor and check with patient. This note was completed by: Marilyn Henning [facility] NURSING PROG HNO ID: [id number] Author: Dianelys Lopez RN Service: Nursing Author [...] (RECOMMENDATION): None Electronically Signed By: Dianelys Lopez [facility] OPERATIVE NOon 12-24-2021 OPERATIVE NO HNO ID: [id number] Author: Mary Obrien MD Service: Colorectal Author Type: Physician Type: Operative Report Filed: 12/24/2021 12:34 PM Note Text: COLON AND RECTAL SURGERY OPERATIVE REPORT PATIENT NAME: Mary Leal ADMISSION DATE: 12/24/2021 LOG ID: [id number] SURGERY/PROCEDURE DATE: 12/24/2021 INCISION/PROCEDURE START TIME: 8:50 AM INCISION CLOSE/PROCEDURE END TIME: AGE: [age] year old SEX: female SURGEON(S)/PROCEDURALIST( S) AND SNIPPER(S): Surgeon(s) and Role: Panel 1: * Mary [...] port site. This was ligated with a kbtnzy-hi-jxkrx Vicryl suture and was confirmed to be [...] above. Mary Obrien, (more content not included)... [facility] OPERATIVE NO HNO ID: [id number] Author: Pam Wang MD Service: Urogynecology Author Type: Physician Type: Operative Report Filed: 12/28/2021 10:03 AM Note Text: OPERATIVE/PROCEDURE REPORT LOG ID: [id number] SURGERY/PROCEDURE DATE: 12/24/2021 INCISION/PROCEDURE START TIME: 8:50 AM INCISION CLOSE/PROCEDURE END TIME: 1:50 PM SURGEON(S)/PROCEDURALIST( S) AND SNIPPER(S): Surgeon(s) and Role: Panel 1: * Mary [...] of the (more content not included)... Normal [facility] Type and SCR (30D)on 022 ABO/RH(D) Positive [facility] Comment on above: Performed By: #### T SCR30 ####[facility] [place], [place] [phone] Confirm Blood Typeon 021 ABO/RH(D) Positive Normal [facility] Comment on above: Performed By: #### C ONABO ####[facility] [place], [place] [phone] Type and SCR (30D)on ABO/RH(D) Positive [facility] Comment on above: Performed By: #### T SCR30 ####[facility] [place], [place] [phone] Nonvisit Note - PTon Nonvisit Note - PT Chart reviewed with eval prepped for scheduled eval. [facility]enton 01-08-2021 Consent [id number]#1.00CD:1 27 [facility] Coding Summary.on 01-06-2021 Coding Summary. CODING DATE: FINAL [facility] DSC STATUS: Home (Routine DC) PAYOR: Medicaid EA DESCRIPTION 0439 CLASS V PHARMACOTHERAPY ADMIT DX: [...] Eileen Scott Date Saved: 01/06/2021 09:01 am [facility] Consent for Procedure/Surger yon 01-04-2021 Consent for Procedure/Surgery [id number]#1.00CD:1 27 [facility] Consent for Procedure/Surgery [id number]#1.00CD:1 27 [facility] Consent for Treatmenton Consent for Treatment [id number]#1.00CD:12 7 Normal [facility] Discharge Instructionson Discharge Instructions [id number]#1.00CD:1 27 Normal [facility] Inpatient Patient Summaryon 01-04-2021 Inpatient Patient Summary [place] [id number] Clinical Summary Person Information Name: MARY LEAL Age: 50 Years : 1970 Sex: Female PCP: Isatu WILLAMS DO Marital Status: Race: White Ethnicity: Non- or Language: Nigerien Visit Id: Visit Reason: MIXED INCONTINENCE Speciality: Acuity: Enc Type: Outpatient Med Service: Surgery Arrival: 01/04/2021 12:31:00 Discharge: Dispo Type: Address: [address] [place] [phone] Provider Notes: Diagnosis: Problems Active Decreased bladder [...] Documented This Visit Final Med List: acetaminophen-hydrocodone ([place] 5/325 Tab) By Mouth every 6 hours. [...] up: With: Address: When: Clifford OCONNOR [address], [address], [place] [address] Business (1) Within 2 weeks Comments: Call for followup appointment. Have a great day! Patient Education Information: EU - Cystoscopy with Botox Injection Discharge Instructions (Custom) [facility] IntraOperative Documentson 0 01-04-2021 IntraOperative Documents [id number]#1.00CD:1 27 Normal [facility] IntraOperative Documents [id number]#1.00CD:1 27 [facility] Main OR Intraoperative Recor don 01-04-2021 Main OR Intraoperative Record IntraOp Document Type FTURO Summary Primary Physician: Clifford OCONNOR MD Finalized Date/Time: 01/04/21 13:27:05 Pt. Name: MARY LEAL/Sex: 1970 Female Med Rec #: [id number] Physician: Clifford OCONNOR MD Financial #: [id number] Pt. Type: O Room/Bed: / Admit/Disch: 01/04/21 12:31:00 - Institution: Case Times FTURO Entry 1 Patient Times In Room 01/04/21 13:07:00 Out Room 01/04/21 13:27:00 Procedure Times Start 01/04/21 13:19:00 Stop 01/04/21 13:23:00 Anesthesia Times Last Modified By: Niecy Tran RN 01/04/21 13:27:01 Case Attendance FTURO Entry 1 Entry 2 Entry 3 Case Attendee ANASTASIA BENSON, Clifford Dalton DIETARY AID, Akin Mejias DIETARY AID, Debi Chand Role Performed Surgeon - Primary Scrub - Primary Scrub - Primary Time In 01/04/21 13:07:00 01/04/21 13:07:00 01/04/21 13:07:00 Time Out 01/04/21 13:27:00 01/04/21 13:27:00 01/04/21 13:27:00 Procedure CYSTOSCOPY LOCAL BOTOX CYSTOSCOPY LOCAL BOTOX CYSTOSCOPY LOCAL BOTOX INJECTION(.) INJECTION(.) INJECTION(.) Comments PRECEPTING ORIENTING Last Modified By: Niecy Tran RN, RN, Niecy Vargas RN 01/04/21 13:27:02 01/04/21 13:27:02 01/04/21 13:27:02 Entry 4 Case Attendee Niecy Tran RN Role Performed Electronic Warfare Operator - Primary Time In 01/04/21 13:07:00 Time Out 01/04/21 13:27:00 Procedure CYSTOSCOPY LOCAL BOTOX INJECTION(.) Comments Last Modified By: Niecy Tran RN 01/04/21 13:27:02 Surgical Procedures FTURO Entry 1 Procedure Description Procedure CYSTOSCOPY LOCAL BOTOX Modifiers . INJECTION Surgeon Description CYSTOSCOPY BOTOX 50 UNITS LOT NUMBER [id number] EXP DATE 08/2023 Primary Procedure Yes Primary [...] Out Clifford OCONNOR MD, Verified (If Participants Akin Dalton CST, Applicable) Debi Mejias CST, Niecy Tran RN Time Out Complete 01/04/21 13:08:00 Allergies Reviewed? [...] By: Niecy Tran RN 01/04/21 13:27 Normal [facility] Main OR Preoperative Recordo n 01-04-2021 Main OR Preoperative Record Holding Area Document Type FTURO Summary Primary Physician: Clifford OCONNOR MD Finalized Date/Time: 01/04/21 13:05:55 Pt. Name: MARY LEAL/Sex: 1970 Female Med Rec #: [id number] Physician: Clifford OCONNOR MD Financial #: [id number] Pt. Type: O Room/Bed: / Admit/Disch: 01/04/21 [...] 12:46 Niecy Tran RN 01/04/21 13:05 Normal [facility] Operative Reporton Operative Report Patient: ERNESTO LEAL [...] arranged, F/U in two weeks. . Normal [facility] Comment on above: Result Comment: Elec tronically Signed By: ANASTASIA BENSON, Clifford Bailey\.valerie\Date and Time Signed: 01/04/21 13:30 EST Outpatient Surgery Discharge Instructionon 01-04-2021 Outpatient Surgery Discharge Instruction [place] [id number] Patient Discharge Instructions PERSON INFORMATION Name: MARY [...] up: With: Address: When: Clifford OCONNOR [address], [address], [place] [address] [facility] (1Valued Relationships Within 2 weeks Comments: Call for followup [...] to serve you. Thank you for choosing [facility] Normal [facility] PT - Assessmentson 1 PT - Assessments [id number]#1.00CD:1 27 Normal [facility] Ambulatory Clinical Summaryo n 11-11-2020 Ambulatory Clinical Summary {2p-49-59-7y-89-ug-4d-ff- 19-31-0c-57-57-n6-c9-f1}C D:[id number] Normal [facility] Patient Educationon 11-11-19 21 Patient Education Family [...] urinary (more content not included)... Normal [facility] U[facility]- [facility] 11-[facility]-2020 Urology Phone Visit- Telehealth HPI [...] only communication with the patient located at [facility] [phone] , with no one else. If it [...] With When Contact Information Francie BENSON, Dawna Fledman [address] [place] [address]- [phone] Additional Instructions: Patient Education Urodynamic Testing Overactive Bladder, Adult I, Christy Gill , personally scribed for Dr. Marmolejo on 10/21/2020 12:00:50. . Documentation recorded by the scribChristy rios, accurately reflects the services(s) I performed [...] urine stream His (more content not included)... [facility] Comment on above: Result Comment: Elec tronically Signed By: Francie BENSON, Dawna Feldman\.br\Date and Time Signed: 11/03/20 11:59 EST\.br\Electronically Co-Signed By: Christy Gill MA\.br\Date and Time Co-Signed: 10/21/20 12:01 EST Coding Summary.on 10-28-2020 Coding Summary. CODING DATE: 020 FINAL [facility] STATUS: Home (Routine DC) PAYOR: Medicaid EAPG DESCRIPTION 0161 URINARY STUDIES AND PROCEDURES 0213 [...] Eileen Scott Date Saved: 10/28/2020 11:17 am [facility] Ambulatory Clinical Summaryo n 10-27-2020 Ambulatory Clinical Summary {12-06-9z-40-95-87-44-f3- nm-i8-p8-89-90-56-c6-e5}C D:[id number] [facility] Consent for Procedure/Surger yon 10-27-2020 Consent for Procedure/Surgery [id number]#1.00CD: 127 [facility] Consent for Treatmenton 10-07 Consent for Treatment [id number]#1.00CD:12 7 [facility] IntraOperative Documentson 1 12-28-2019 IntraOperative Documents [id number]#1.00CD: 127 Normal [facility] Patient Educationon 10-21-20 Patient Education Family Medicine [...] lab or depar (more content not included)... [facility] PT - Assessmentson 0 PT - Assessments [id number]#1.00CD:1 27 [facility] Nonvisit Note - PTon 020 Nonvisit Note - PT Per voicemail: she n eeds to cancel all of her PT due to personal reasons. KK [facility] Provider Letteron 09-09-2020 Provider Letter (Inserted Image. Jessica ble to display) September 09, 2020 MARY LEAL [address] [place] [address] MARY LEAL 1970 Dear Mary Leal, You [...] appreciate your understanding. Sincerely, [facility] [address], [place] [address] [facility] PT - Assessmentson 0 PT - Assessments [id number]#1.00CD:1 27 [facility] PT - Assessments [id number]#1.00CD:1 27 [facility] PT - Assessmentson 0 PT - Assessments [id number]#1.00CD:1 27 [facility] PT - Consentson 08-31-2020 PT - Consents [id number]#1.00CD:1 27 [facility] Pre-Certification Formon Pre-Certification Form [id number]#1.00CD:12 7 [facility] Pre-Certification Form [id number]#1.00CD:12 7 [facility] Consent for Procedure/Surger yon 08-26-2020 Consent for Procedure/Surgery [id number]#1.00CD:12 7 [facility] Ambulatory Clinical Summaryo n 08-25-2020 Ambulatory Clinical Summary {yh-4w-2c-49-13-u5-40-7c- 71-ii-0w-07-98-r2-7d-25}C D:[id number] [facility] Patient Educationon 08-25-20 Patient Education Family [...] an extended amount of time. Only take sscb-rlr-grzjllr or prescription medicines for pain, discomfort, or [...] Document Reviewed: 09/07/2009 ExitCare? Patient Information ?2013 [employer]. Normal [facility] Urology Office/Clinic Noteon 08-25-2020 Urology Office/Clinic Note [...] disease: Mother. Hypertension: Mother and Father. Normal [facility] Comment on above: Result Comment: Elec tronically Signed By: Dawna Marmolejo MD\.br\Date and Time Signed: 08/25/20 10:06 EDT\.br\Electronically Co-Signed By: Mary Hager.br\Date and Time Co-Signed: 08/25/20 09:51 EDT Coding Summary.on 08-21-2020 Coding Summary. CODING DATE: 020 FINAL [facility] STATUS: PAYOR: Medicaid [facility] DESCRIPTION 0271 PHYSICAL THERAPY ADMIT DX: REASON FOR VISIT DX: R27.9 Unspecified lack of coordination FINAL DX: PRINCIPAL: R27.9 Unspecified lack of coordination SECONDARY: N94.89 Other specified conditions associated with female genital organs and menstrual cycle N39.3 Stress incontinence (female) (male) PYMT PROC EA STAT DESCRIPTION DOCTOR NAME DATE NOTE: The code number assigned matches the documented diagnosis and / or procedure in the patient's chart. However, the narrative phrase printed from the coding software may appear abbreviated, or result in slightly different terminology. Coded By: Brittanie Raymond CphT Date Saved: 08/21/2020 10:42 am [facility] 08-21-2020 Consent [id number]#1.00CD:12 7 [facility] Ambulatory Clinical Summaryo n 08-19-2020 Ambulatory Clinical Summary {x1-hc-30-a1-0z-8x-47-65- 23-78-46-0r-j3-h5-c8-73}C D:[id number] [facility] Ambulatory Clinical Summary {62-2z-16-8l-5l-7t-4f-26- s2-77-18-35-33-w1-0d-3c}C D:479122 [facility] Nonvisit Note - PTon 020 Nonvisit Note - PT Chart reviewed for scheduled eval. KK [facility] Patient Educationon 08-19-20 20 Patient Education [...] your urinary (more content not included)... Normal [facility] Urology Phone [facility]- [facility] 08-19-2020 Urology Phone Visit- Telehealth Chief [...] only communication with the patient located at [address] [place] [address], with no one else. If it is [...] Will order Local anesthesia. ABX sent to [facility] in [place]. Ordered: [facility] External [...] Patient who (more content not included)... Normal [facility] Comment on above: Result Comment: Elec tronically Signed By: Dawna Marmolejo MD\.br\Date and Time Signed: 08/19/20 08:53 EDT\.br\Electronically Co-Signed By: Christy Gill MA\.br\Date and Time Co-Signed: 08/19/20 08:44 EDT Coding Summary.on 08-12-2020 Coding Summary. CODING DATE: 020 FINAL [facility] STATUS: Home (Routine DC) PAYOR: Medicaid EAPG [...] Demi Fried Date Saved: 08/12/2020 09:42 am [facility] 08-11-2020 Forms [id number]#1.00CD:12 7 [facility] C Urineon 08-09-2020 Bacteria identified Cx [...] Locations R1: This test was performed at: [facility], [address] [place] [address], [facility]- , , [facility] Comment on above: Performed By: #### 2 [id number] ####[facility] [address] [place] [address] Ambulatory Clinical Summaryo n 08-07-2020 Ambulatory Clinical Summary {4n-l2-96-gl-70-18-4a-70- 98-rr-96-60-3w-dp-84-a2}C D:[id number] [facility] Patient Educationon 08-07-20 Patient Education Kegel [...] Document Reviewed: 07/18/2013 ExitCare? Patient Information ?2013 [employer]. Family Medicine Overactive Bladder, Adult The bladder [...] bladder, your (more content not included)... Normal [facility] Urology Office/Clinic Noteon 08-07-2020 Urology Office/Clinic Note [...] setting of nocturia q2hrs and daytime frequency q2yjcxn with painful post void bladder sensation of [...] [address] (more content not included)... Normal [facility] Comment on above: Result Comment: Elec tronically Signed By: Dawna Marmolejo MD\.br\Date and Time Signed: 08/07/20 15:54 EDT\.br\Electronically Co-Signed By: Radha Hare MA\.br\Date and Time Co-Signed: 08/07/20 15:44 EDT Vital Signs Date Time Vital Sign Value Performing Clinician Facility 08-12-2023 07:08-0400 Diastolic blood pressure 65 mm[Hg] Lex Salmon MD Work Phone: [facility] 08-12-2023 07:08-0400 Heart rate 77 /min Lex Salmon MD Work Phone: [facility] 08-12-2023 07:08-0400 SaO2% (BldA) [Mass fraction] 98 % Lex Salmon MD Work Phone: [facility] 08-12-2023 07:08-0400 Systolic blood pressure 132 mm[Hg] Lex Salmon MD Work Phone: [facility] 08-12-2023 06:48-0400 Respiratory rate 13 /min Lex Salmon MD Work Phone: [facility] 08-12-2023 00:25-0400 Body height 162.6 cm Lex Salmon MD Work Phone: [facility] 08-12-2023 00:25-0400 Body mass index (BMI) [Ratio] 28.01 kg/m2 Lex Salmon MD Work Phone: [facility] 08-12-2023 00:25-0400 Body temperature 97.59 [degF] Lex Salmon MD Work Phone: [facility] 08-12-2023 00:25-0400 Body weight 74.03 kg Lex Salmon MD Work Phone: [facility] 07-31-2023 14:27-0400 Body height 162.6 cm Nelsy Chávez HOLLOW TILE PARTITION ERECTOR.LINING CLOSER Work Phone: [facility] 07-31-2023 14:27-0400 Body weight 69.85 kg Nelsy Chávez HOLLOW TILE PARTITION ERECTOR.LINING CLOSER Work Phone: [facility] 07-31-2023 14:27-0400 Diastolic blood pressure 96 mm[Hg] Nelsy Chávez HOLLOW TILE PARTITION ERECTOR.LINING CLOSER Work Phone: [facility] 07-31-2023 14:27-0400 Heart rate 76 /min Nelsy Chávez HOLLOW TILE PARTITION ERECTOR.LINING CLOSER Work Phone: [facility] 07-31-2023 14:27-0400 Systolic blood pressure 136 mm[Hg] Nelsy Chávez HOLLOW TILE PARTITION ERECTOR.LINING CLOSER Work Phone: [facility] 06-13-2023 10:37-0400 Body height 162.56 cm Eliceo Willams Work Phone: [facility] [address] DO Work Phone: 06-13-2023 10:37-0400 Body mass index (BMI) [Ratio] 27.46 kg/m2 Eliceo Willams Work Phone: [facility] [address] DO Work Phone: 06-13-2023 10:37-0400 Body surface area Derived from formula 1.78 m2 Eliceo Willams Work Phone: [facility] [address] DO Work Phone: 06-13-2023 10:37-0400 Body weight 72.58 kg Eliceo Willams Work Phone: [facility] [address] DO Work Phone: 06-13-2023 10:37-0400 Diastolic blood pressure 70 mm[Hg] Eliceo Willams Work Phone: [facility] DO Work Phone: 06-13-2023 10:37-0400 Heart rate 70 /min Eliceo Willams Work Phone: [facility] DO Work Phone: 06-13-2023 10:37-0400 Systolic blood pressure 100 mm[Hg] Eliceo Willams Work Phone: [facility] DO Work Phone: 06-13-2023 10:37-0400 11 1 Eliceo Willams Work Phone: [facility] DO Work Phone: Comment on above: PHQ-9 TS 06-05-2023 13:23-0400 Diastolic blood pressure 68 mm[Hg] DO Shannon Szymanskijerometomasa Work Phone: [facility] 06-05-2023 13:23-0400 Heart rate 72 /min DO IsatuReno Szymanskileigha Work Phone: [facility] 06-05-2023 13:23-0400 Respiratory rate 18 /min DO Shannon Szymanskijerometomasa Work Phone: [facility] 06-05-2023 13:23-0400 SaO2% (BldA) [Mass fraction] 97 % DO Shannon Lugo Stephonleigha Work Phone: [facility] 06-05-2023 13:23-0400 Systolic blood pressure 129 mm[Hg] DO Shannon Willams Work Phone: [facility] 06-05-2023 09:32-0400 Body height 162.56 cm DO Shannon Willams Work Phone: [facility] 06-05-2023 09:32-0400 Body weight 73.9 kg DO Shannon Willams Work Phone: [facility] 06-05-2023 09:31-0400 Body temperature 97.5 [degF] DO Shannon Willams Work Phone: [facility] 01-16-2023 13:18-0400 [facility] 01-16-[facility]23 13:18-0400 [facility] 11-21-2022 08:00-0500 Body height 162.6 cm [facility] 2 Work Phone: [facility] 11-21-2022 08:00-0500 Body weight 64.86 kg [facility] 2 Work Phone: [facility] 10-11-2022 10:08-0500 Body height 162.6 cm Isra Masters DO Work Phone: [facility] 10-11-2022 10:08-0500 Body weight 78.02 kg Isra Galarzae DO Work Phone: [facility] 10-11-2022 10:08-0500 Diastolic blood pressure 97 mm[Hg] Isra Masters DO Work Phone: [facility] 10-11-2022 10:08-0500 Heart rate 89 /min Isra Masters DO Work Phone: [facility] 10-11-2022 10:08-0500 Systolic blood pressure 141 mm[Hg] Isra Masters DO Work Phone: [facility] 10-10-2022 14:30-0500 Body height 162.56 cm Annette Cartagena Other [employer] Other 10-10-2022 14:30-0500 Body mass index (BMI) [Ratio] 28.66 kg/m2 Annette Cartagena Other [employer] Other 10-10-2022 14:30-0500 Body weight 75.75 kg Annette Cartagena Other [employer] Other 07-26-2022 11:13-0400 Body height 162.6 cm Mary Obrien MD Work Phone: [facility] 07-26-2022 11:13-0400 Body temperature 97.5 [degF] Mary Obrien MD Work Phone: [facility] 07-26-2022 11:13-0400 Body weight 77.56 kg Mary Obrien MD Work Phone: [facility] 07-26-2022 11:13-0400 Diastolic blood pressure 83 mm[Hg] Mary Obrien MD Work Phone: [facility] 07-26-2022 11:13-0400 Heart rate 95 /min Mary Obrien MD Work Phone: [facility] 07-26-2022 11:13-0400 SaO2% (BldA) [Mass fraction] 97 % Mary Obrien MD Work Phone: [facility] 07-26-2022 11:13-0400 Systolic blood pressure 110 mm[Hg] Mary Obrien MD Work Phone: [facility] 05-26-2022 11:45-0400 Body height 162.56 cm Annette Harris Other [employer] Other 05-26-2022 11:45-0400 Body mass index (BMI) [Ratio] 29.18 kg/m2 Annette Harris Other [employer] Other 05-26-2022 11:45-0400 Body weight 77.11 kg Annette Harris Other [employer] Other 05-12-2022 09:06-0400 Diastolic blood pressure 80 mm[Hg] Eliceo Willams Work Phone: [facility] DO Work Phone: 05-12-2022 09:06-0400 Systolic blood pressure 126 mm[Hg] Eliceo Willams Work Phone: [facility] DO Work Phone: 05-12-2022 08:57-0400 Body height 162.56 cm Eliceo Willams Work Phone: [facility] DO Work Phone: 05-12-2022 08:57-0400 Body mass index (BMI) [Ratio] 29.87 kg/m2 Eliceo Willams Work Phone: [facility] DO Work Phone: 05-12-2022 08:57-0400 Body surface area Derived from formula 1.84 m2 Eliceo Willams Work Phone: [facility] DO Work Phone: 05-12-2022 08:57-0400 Body weight 78.93 kg Eliceo Willams Work Phone: [facility] DO Work Phone: 05-12-2022 08:57-0400 Diastolic blood pressure 80 mm[Hg] Eliceo Willams Work Phone: [facility] DO Work Phone: 05-12-2022 08:57-0400 Heart rate 68 /min Eliceo Szymanskileigha Work Phone: [facility] DO Work Phone: 05-12-2022 08:57-0400 Systolic blood pressure 130 mm[Hg] Eliceo Willams Work Phone: [facility] DO Work Phone: 05-10-2022 12:30-0400 Body height 162.56 cm Allison Arita Other [employer] Other 05-10-2022 12:30-0400 Body mass index (BMI) [Ratio] 29.18 kg/m2 Allison Arita Other [employer] Other 05-10-2022 12:30-0400 Body temperature 97.3 [degF] Allison Arita Other [employer] Other 05-10-2022 12:30-0400 Body weight 77.11 kg Allison Arita Other [employer] Other 05-10-2022 12:30-0400 Respiratory rate 18 /min Allison Arita Other [employer] Other 05-10-2022 12:30-0400 SaO2% (BldA) [Mass fraction] 98 % Allison Arita Other [employer] Other 04-22-2022 12:04-0400 Body height 162.6 cm Jessi Sheets APRN.LINING CLOSER Work Phone: [facility] 04-22-2022 12:04-0400 Body weight 77.56 kg Jessi Sheets APRN.LINING CLOSER Work Phone: [facility] 04-22-2022 12:04-0400 Diastolic blood pressure 68 mm[Hg] Jessi Sheets APRN.LINING CLOSER Work Phone: [facility] 04-22-2022 12:04-0400 Heart rate 76 /min Jessi Sheets APRN.LINING CLOSER Work Phone: [facility] 04-22-2022 12:04-0400 SaO2% (BldA) [Mass fraction] 98 % Jessi Sheets HOLLOW TILE PARTITION ERECTOR.LINING CLOSER Work Phone: [facility] 04-22-2022 12:04-0400 Systolic blood pressure 104 mm[Hg] Jessi Sheets APRN.LINING CLOSER Work Phone: [facility] 03-15-2022 16:30-0400 Body height 162.56 cm Annette Fernándeztonia Other [employer] Other 03-15-2022 16:30-0400 Body mass index (BMI) [Ratio] 30.55 kg/m2 Annette Harris Other [employer] Other 03-15-2022 16:30-0400 Body weight 80.74 kg Annette Fernándeztonia Other [employer] Other 03-15-2022 08:36-0400 Body height 162.6 cm Isra Galarzae DO Work Phone: [facility] 03-15-2022 08:36-0400 Body weight 83.01 kg Isra Masters DO Work Phone: [facility] 03-15-2022 08:36-0400 Diastolic blood pressure 87 mm[Hg] Isra Masters DO Work Phone: [facility] 03-15-2022 08:36-0400 Heart rate 85 /min Isra Masters DO Work Phone: [facility] 03-15-2022 08:36-0400 SaO2% (BldA) [Mass fraction] 100 % Isra Masters DO Work Phone: [facility] 03-15-2022 08:36-0400 Systolic blood pressure 133 mm[Hg] Isra Masters DO Work Phone: [facility] 03-14-2022 10:23-0400 Body height 162.6 cm Pacc 4 Work Phone: [facility] 03-14-2022 10:23-0400 Body temperature 97.2 [degF] Pacc 4 Work Phone: [facility] 03-14-2022 10:23-0400 Body weight 83.01 kg Pacc 4 Work Phone: [facility] 03-14-2022 10:23-0400 Diastolic blood pressure 76 mm[Hg] Pacc 4 Work Phone: [facility] 03-14-2022 10:23-0400 Heart rate 74 /min Pacc 4 Work Phone: [facility] 03-14-2022 [id number] Respiratory rate 16 /min Pacc 4 Work Phone: [facility] 03-14-2022 10:23-0400 SaO2% (BldA) [Mass fraction] 98 % Pacc 4 Work Phone: [facility] 03-14-2022 10:23-0400 Systolic blood pressure 114 mm[Hg] Pacc 4 Work Phone: [facility] 02-18-2022 09:43-0400 Body height 162.6 cm Nelsy Chávez HOLLOW TILE PARTITION ERECTOR.LINING CLOSER Work Phone: [facility] 02-18-2022 09:43-0400 Body weight 80.29 kg Nelsy Chávez HOLLOW TILE PARTITION ERECTOR.LINING CLOSER Work Phone: [facility] 02-18-2022 09:43-0400 Diastolic blood pressure 70 mm[Hg] Nelsy Chávez HOLLOW TILE PARTITION ERECTOR.LINING CLOSER Work Phone: [facility] 02-18-2022 09:43-0400 Systolic blood pressure 110 mm[Hg] Nelsy Chávez HOLLOW TILE PARTITION ERECTOR.LINING CLOSER Work Phone: [facility] 02-08-2022 14:52-0400 Body height 162.6 cm Mary Obrien MD Work Phone: [facility] 02-08-2022 14:52-0400 Body weight 83.01 kg Mary Obrien MD Work Phone: [facility] 02-08-2022 14:52-0400 Diastolic blood pressure 76 mm[Hg] Mary Obrien MD Work Phone: [facility] 02-08-2022 14:52-0400 Heart rate 79 /min Mary Obrien MD Work Phone: [facility] 02-08-2022 14:52-0400 SaO2% (BldA) [Mass fraction] 97 % Mary Obrien MD Work Phone: [facility] 02-08-2022 14:52-0400 Systolic blood pressure 113 mm[Hg] Mary Obrien MD Work Phone: [facility] 02-08-2022 11:19-0400 Body weight 83.01 kg Magali Mitchell HOLLOW TILE PARTITION ERECTOR.LINING CLOSER Work Phone: [facility] 02-08-2022 11:19-0400 Diastolic blood pressure 76 mm[Hg] Magali Mitchell HOLLOW TILE PARTITION ERECTOR.LINING CLOSER Work Phone: [facility] 02-08-2022 11:19-0400 Heart rate 74 /min Magali Mitchell HOLLOW TILE PARTITION ERECTOR.LINING CLOSER Work Phone: [facility] 02-08-2022 11:19-0400 Systolic blood pressure 113 mm[Hg] Magali Mitchell HOLLOW TILE PARTITION ERECTOR.LINING CLOSER Work Phone: [facility] 10-20-2021 09:45-0500 Body height 162.56 cm Annette Harris Other [employer] Other 10-20-2021 09:45-0500 Body mass index (BMI) [Ratio] 31.41 kg/m2 Annette Harris Other [employer] Other 10-20-2021 09:45-0500 Body weight 83.01 kg Annette Harris Other [employer] Other 08-19-2021 17:10-0400 Body height 162.56 cm Erica Kingston Other [employer] Other 08-19-2021 17:10-0400 Body mass index (BMI) [Ratio] 31.24 kg/m2 Erica Vashti Other [employer] Other 08-19-2021 17:10-0400 Body temperature 97.3 [degF] Erica Vashti Other [employer] Other 08-19-2021 17:10-0400 Body weight 82.56 kg Erica Kumarmond Other [employer] Other 08-19-2021 17:10-0400 Diastolic blood pressure 82 mm[Hg] Erica Kumarmond Other [employer] Other 08-19-2021 17:10-0400 Respiratory rate 18 /min Erica Kumarmond Other [employer] Other 08-19-2021 17:10-0400 SaO2% (BldA) [Mass fraction] 98 % Erica Kumarmond Other [employer] Other 08-19-2021 17:10-0400 Systolic blood pressure 126 mm[Hg] Erica Vashti Other [employer] Other 08-13-2021 10:15-0400 Body height 162.56 cm Tita Ginty Other [employer] Other 08-13-2021 10:15-0400 Body mass index (BMI) [Ratio] 30.89 kg/m2 Tita Ginty Other [employer] Other 08-13-2021 10:15-0400 Body temperature 6 [degF] Tita Ginty Other [employer] Other 08-13-2021 10:15-0400 Body weight 81.65 kg Tita Dat Other [employer] Other 08-13-2021 10:15-0400 SaO2% (BldA) [Mass fraction] 99 % Tita Pinanty Other [employer] Other 07-28-2021 09:30-0400 Body height 162.56 cm Annette Harris Other [employer] Other 07-28-2021 09:30-0400 Body mass index (BMI) [Ratio] 30.89 kg/m2 Annette Harris Other [employer] Other 07-28-2021 09:30-0400 Body weight 81.65 kg Annette Harris Other [employer] Other Encounters Encounter Date Encounter Type Care Provider Facility Start: 10-31-2023 ambulatory RON Nicole TIGRE [facility] Start: 10-27-2023 End: 10-28-2023 ambulatory EAGLE LEE Not Available Start: 10-26-2023 Telephone encounter Annette Harris [facility] Start: 10-26-2023 End: 10-26-2023 ambulatory RON KING [employer] Other Start: 10-24-2023 End: 10-24-2023 ambulatory EAGLE LEE Not Available Start: 10-23-2023 End: 10-23-2023 ambulatory [facility] Start: 10-10-2023 End: 10-10-2023 ambulatory PAM WANG Facility:[facility] Start: 10-06-2023 End: 10-06-2023 ambulatory Annette Harris Other [employer] Other Start: 10-06-2023 Telephone encounter An[facility]te [facility] Start: 10-03-2023 End: 10-04-2023 ambulatory ELICEO WILLAMS Not Available Start: 09-27-2023 End: 09-27-2023 ambulatory Pam Wang MD Work Phone: Urogynecology Comment on above: Worsening Start: 09-27-2023 Refill Dorisfarheen Arias HOLLOW TILE PARTITION ERECTOR.LINING CLOSER Work Phone (unformatted): [phone] Urogynecology Comment on above: Med Change Request Start: 09-21-2023 End: 09-21-2023 ambulatory ELICEO WILLAMS Not Available Start: 09-11-2023 End: 09-11-2023 ambulatory PAM WANG Facility:[facility] Start: 08-23-2023 End: 08-23-[address] [facility] Start: 08-12-2023 End: 08-12-2023 Emergency department patient visit LEX SALMON [facility] Start: 08-12-2023 End: 08-12-2023 Emergency department patient visit Lex Salmon MD Work Phone: [facility] Emergency Dept Comment on above: Upper abdominal pain (Primary Dx) Start: 08-09-2023 ambulatory Mary Obrien MD Work Phone: Colorectal Surgery Comment on above: Response Start: 08-07-2023 End: 08-07-2023 ambulatory Mary Obrien MD Work Phone: Colorectal Surgery Comment on above: Colon Start: 08-01-[address] Eliceo Willams Facility: Start: 07-31-2023 End: 07-31-2023 ambulatory NELSY CHÁVEZ Facility:[facility] Start: 07-31-2023 End: 07-31-2023 Patient encounter procedure Nelsy Chávez HOLLOW TILE PARTITION ERECTOR.LINING CLOSER Work Phone: URO/Gynecology Comment on above: Incomplete bladder e mptying (Primary Dx); Constipation, unspecified constipation type; Urinary urgency; Urinary frequency; Nocturia Start: 07-25-2023 End: 07-26-2023 ambulatory SIOMARA MONTAGUE [facility] Start: 07-17-2023 (Procedure) Short Annette Pradeeptonia [facility] Start: 07-17-2023 End: 07-17-2023 ambulatory Annette Harris Other [facility] [employer] Other Start: 07-12-2023 End: 07-12-2023 ambulatory Annette Harris Other [facility] [employer] Other Start: 07-12-2023 Telephone encounter Annette [facility] Start: 06-13-2023 Office consultation new/estab patient 60 min Eliceo Willams Work Phone: -[facility] DO Work Phone: Start: 06-13-[address] Juan Anaya Facility: Start: 06-08-2023 End: 06-08-[address] [facility] Start: 06-07-[address] Juan Anaya Facility:[id number] Start: 06-05-2023 End: 06-05-2023 Emergency department patient visit Shannon Willams Facility:[facility] Start: 06-05-2023 End: 06-05-2023 Emergency department patient visit DO Shannon Willams Work Phone: [facility] Work Phone: Start: 05-31-2023 End: 05-31-2023 ambulatory DEB HART [facility] Start: 05-28-2023 ambulatory Pam rios MD Work Phone: URO/Gynecology Comment on above: Problems with urinat ing Start: 05-22-2023 End: 05-22-2023 ambulatory [facility] Start: 05-17-2023 End: 05-17-[address] [facility] Start: 05-17-2023 End: 05-17-2023 ambulatory RADHA CASTREJON [facility] Start: 04-26-2023 End: 04-26-2023 ambulatory Annette Harris Other [employer] Other Start: 04-26-2023 Office outpatient vi sit 25 minutes Annette Harris [facility] Start: 04-17-2023 ambulatory CARMEN [facility] Start: 04-11-2023 Refill Isra S Clin e DO Work Phone: Gastroenterology Comment on above: Refill Request Start: [facility]-10-2023 [facility] Start: 04-04-2023 End: 04-05-[address] Isatu WILLAMS Facility: Start: 03-20-2023 ambulatory CARMEN [facility] Start: 03-19-2023 ambulatory Isra S Clin e DO Work Phone: Gastroenterology Comment on above: Stool sample results Start: 03-17-2023 End: 03-17-2023 ambulatory Niecy Duron Facility:[facility] Start: 03-17-2023 End: 03-17-2023 ambulatory DO Shannon Willams Work Phone: [facility] Work Phone: Start: 03-17-2023 End: 03-17-2023 Discharged Recurring DO Shannon Willams Work Phone: [facility] [place] Work Phone: Start: 03-16-2023 End: 03-16-2023 ambulatory ELICEO WILLAMS JR Facility:[facility] Start: 03-15-2023 Orders Only Isra S Clin e DO Work Phone: Gastroenterology Comment on above: Diarrhea due to power bsorption (Primary Dx) What lab? Start: 03-06-2023 End: 03-06-[address] Isatu WILLAMS Facility:[facility] Start: 03-06-2023 ambulatory CARMEN [facility] Start: 02-27-2023 ambulatory CARMEN KAILA [facility] Start: 02-21-2023 End: 02-22-[address] Isatu WILLAMS Facility:[facility] Start: 02-20-2023 ambulatory CARMEN DORSEY [facility] Start: 02-19-2023 End: 02-19-[address] Isatu WILLAMS Facility:[facility] Start: 02-16-2023 End: 02-16-[address] [facility] Start: 02-13-2023 ambulatory CARMEN [facility] Start: 02-06-2023 ambulatory CARMEN [facility] Start: 02-02-2023 End: 02-02-[address] [facility] Start: 01-31-2023 End: 02-01-2023 ambulatory NICEY DURON Facility:[facility] Start: 01-27-2023 End: 01-27-[address] Isatu WILLAMS Facility:[facility] Start: 01-23-2023 ambulatory CAR[facility] Start: 01-20-2023 ambulatory Winston chand DO Work Phone: General Surgery Comment on above: Clarification Start: 01-19-2023 ambulatory Winston chand DO Work Phone: General Surgery Comment on above: General Start: 01-16-2023 Encounter for other preprocedural examination WINSTON HANNAH [facility] Start: 01-16-2023 Telephone encounter Mounika farrell PA-C Work Phone: Pre Anesthesia Comment on above: Appointment (Pt has not arrived for her 1 pm appointment) Start: 01-16-2023 End: 01-16-2023 Admission to [facility] Start: 01-16-2023 End: 01-16-2023 ambulatory WINSTON HANNAH Pre Anesthesia Comment on above: Preop examination (P rimary Dx); Nausea; CHUCKIE (obstructive sleep apnea); Mild persistent asthma without complication; Gastroesophageal reflux disease, unspecified whether esophagitis present; Gastroparesis Start: 01-16-2023 End: 01-16-2023 Preprocedural examination done [facility] Pre Anesthesia Start: 01-11-2023 Telephone encounter Winston Ludmila Isatu aceves DO Work Phone: General Surgery Comment on above: Schedule Procedure Start: 01-10-2023 End: 01-10-2023 ambulatory Winston Kenny Brielle DO Work Phone: General Surgery Comment on above: Pylorospasm (Primary Dx); Functional dyspepsia; Gastroesophageal reflux disease with esophagitis without hemorrhage Start: 01-10-2023 End: 01-10-2023 Telemedicine consultation with patient Winston Kenny Brielle DO Work Phone: [employer] Start: 01-06-2023 End: 01-06-2023 ambulatory ANNETTE SWANSON [facility] Start: 01-02-2023 End: 01-02-2023 ambulatory CARMEN DORSEY [facility] Start: 12-28-2022 ambulatory Yoni Tuttle MD Work Phone: NEUROLOGY Comment on above: No response Start: 12-26-2022 End: 12-26-2022 ambulatory WINSTON HANNAH Facility:[facility] Start: 12-26-2022 End: 12-26-2022 Subsequent hospital visit by physician [facility] Main Qb1 (I-Stat) Radiology Start: 12-23-2022 ambulatory Yoni Tuttle MD Work Phone: NEUROLOGY Comment on above: Cpap Start: 12-22-2022 End: 12-22-2022 ambulatory Winston Kenny Brielle DO Work Phone: General Surgery Comment on above: Pylorospasm (Primary Dx); Functional dyspepsia; Gastroesophageal reflux disease with esophagitis without hemorrhage Start: 12-22-2022 End: 12-22-2022 Telemedicine consultation with patient Winston Karimirai DO Work Phone: [employer] Start: 12-21-2022 End: 12-22-2022 ambulatory SADE WILDE Facility: Start: 12-15-2022 End: 12-15-2022 ambulatory ELICEO WILLAMS JR Facility:[facility] Start: 12-15-2022 End: 12-15-2022 Manual pelvic examination Mary Obrien MD Work Phone: Colorectal Surgery Comment on above: Colonic inertia (Phoebe unique Dx); Pelvic floor dysfunction; Nausea; Gastroparesis Start: 12-15-2022 End: 12-15-2022 Telemedicine consultation with patient Mary Obrien MD Work Phone: [facility] Start: 12-14-2022 ambulatory Yoni Tuttle MD Work Phone: NEUROLOGY Comment on above: Right number? Start: 12-12-2022 ambulatory CARMEN DORSEY [facility] Start: 12-09-2022 End: 12-09-2022 ambulatory Mary Obrien MD Work Phone: Colorectal Surgery Comment on above: Colon Start: 12-09-2022 Telephone encounter Mary brewer MD Work Phone: Colorectal Surgery Comment on above: Patient Question Start: 12-08-2022 Telephone encounter Isra Masters DO Work Phone: Gastroenterology Comment on above: Results (Sigmoidosco py results; patient questions) Start: 12-07-2022 ambulatory Winston chand DO Work Phone: General Surgery Comment on above: Carafate Start: 12-06-2022 ambulatory Isra S Clin e DO Work Phone: Gastroenterology Comment on above: Results Start: 12-05-2022 ambulatory Winston chand DO Work Phone: [facility] Start: 12-02-2022 ambulatory Isra S Clin e DO Work Phone: [facility] Start: 12-02-2022 Telephone encounter Yoni Tuttle MD Work Phone: Neurology Comment on above: Returning Nurse Call Start: 12-01-2022 End: 12-02-2022 ambulatory NIECY DURON Facility: Start: 11-30-2022 End: 11-30-2022 ambulatory ELICEO WILLAMS JR Facility:[facility] Start: 11-30-2022 End: 11-30-2022 ambulatory Isra Masters DO Work Phone: Gastroenterology Comment on above: Chronic idiopathic c onstipation (Primary Dx); Nausea Start: 11-30-2022 End: 11-30-2022 Telemedicine consultation with patient Isra Masters DO Work Phone: [facility] YANCI BRIAN Start: 11-30-2022 End: 11-30-2022 ambulatory CARMEN KAILA [facility] Start: 11-24-2022 End: 11-25-2022 ambulatory Isra Masters DO Work Phone: Gastroenterology Comment on above: SMART PILL RESULTS Approval for upcomin g pap titration test Start: 11-24-2022 Telephone encounter Yoni Tuttle MD Work Phone: Neurology Comment on above: Is PA Needed for PAP Titration Start: 11-23-2022 End: 11-23-2022 ambulatory CARMEN KAILA [facility] Start: 11-22-2022 Telephone encounter Isra Masters DO Work Phone: Gastroenterology Comment on above: Patient Update Start: 11-21-2022 End: 11-21-2022 ambulatory Yoni Tuttle MD Work Phone: Pre Anesthesia Comment on above: Pre-op exam (Primary Dx); Primary hypertension; Mild persistent asthma without complication; Gastroparesis; CHUCKIE (obstructive sleep apnea) Orders Start: 11-21-2022 Encounter for other preprocedural examination WINSTON HANNAH [facility] Start: 11-21-2022 End: 11-21-2022 Admission to establishment Pacc Tevin Guzman 2 Work Phone: [facility] Start: 11-21-2022 End: 11-21-2022 Preprocedural examination done Pac 2 Work Phone: Pre Anesthesia Start: 11-18-2022 End: 11-18-2022 ambulatory ANNETTE SWANSON [facility] Start: 11-17-2022 End: 11-17-2022 ambulatory Annmarie Gillespie RNpublic relations account executive Start: 11-17-2022 Patient encounter procedure Annmarie Gillespie RN [facility] Start: 11-17-2022 End: 11-17-2022 Subsequent hospital visit by physician Capsule Work Phone: Gastroenterology Start: 11-16-2022 End: 11-16-2022 ambulatory Yoni Tuttle MD Work Phone: NEUROLOGY Comment on above: The delay Start: 11-15-2022 ambulatory Yoni Tuttle MD Work Phone: NEUROLOGY Comment on above: Labs Start: 11-14-2022 End: 11-15-2022 ambulatory NIECY DURON Facility:[facility] Start: 11-10-2022 Telephone encounter Annmarie Gillespie RNpublic relations account executive Comment on above: Preparations For [employer] ced[employer] Start: 11-10-2022 End: 11-11-2022 ambulatory NIECY DURON Facility:[facility]1 Start: 11-09-2022 Telephone encounter Yoni Tuttle MD Work Phone: Neurology Comment on above: Orders (SENT PATIENT S IRON RX ) Patient Update Start: 11-04-2022 ambulatory [facility] Start: 11-04-2022 End: 11-04-2022 ambulatory [facility] Start: 11-02-2022 Telephone encounter Yoni Tuttle MD Work Phone: Neurology Comment on above: Results - Sleep Stud y Start: 10-31-2022 ambulatory Yoni Tuttle MD Work Phone: NEUROLOGY Comment on above: Iron test Smart pill Start: 10-24-2022 Telephone encounter Isra Masters DO Work Phone: Gastroenterology Comment on above: Patient Question Start: 10-23-2022 Encounter for preprocedural laboratory examination SADE WILDE [facility] Start: 10-20-2022 End: 10-20-2022 ambulatory [...] Start: 10-14-2022 End: 10-14-2022 ambulatory Annette Cartagena Facility:[facility] Start: 10-14-2022 End: 10-14-2022 ambulatory DO Shannon Willams Work Phone: [facility] Work Phone: Start: 10-14-2022 End: 10-14-2022 Discharged Recurring DO Shannon Willams Work Phone: [facility] [place] Work Phone: Start: 10-13-2022 End: 10-14-2022 ambulatory SADE WILDE Facility:[facility]1 Start: 10-13-2022 End: 10-14-2022 Encounter for preprocedural laboratory examination SADE WILDE Facility:[facility] Start: 10-11-2022 End: 10-11-2022 ambulatory Annette Cartagena Other [employer] Other Start: 10-11-2022 Telephone encounter Annette Cartagena [facility] [employer] Start: 10-11-2022 End: 10-11-2022 Patient encounter procedure Isra Masters DO Work Phone: Gastroenterology Comment on above: Gas bloat syndrome ( Primary Dx); Chronic idiopathic constipation; Gastroparesis Start: 10-10-2022 End: 10-10-2022 ambulatory Annette Cartagena Other [employer] Other Start: 10-10-2022 Office outpatient ne w 30 minutes Annette Cartagena [facility] Start: 10-06-2022 End: 10-06-2022 ambulatory Annette Harris Other [employer] Other Start: 10-06-2022 Patient encounter procedure Annette Harris [facility] [place] Start: 09-28-2022 Encounter for other preprocedural examination [facility] Start: 09-28-2022 Encounter for preprocedural cardiovascular examination [facility] Start: 09-26-2022 End: 09-27-2022 ambulatory [facility] Facility:[facility]1 Start: 09-22-2022 Office outpatient vi sit 25 minutes Annette BRICE [facility] [place] Start: 09-22-2022 Telephone encounter Annette Lunsford [facility] [place] Start: 09-22-2022 End: 09-22-2022 ambulatory DO Shannon Parish Szymanskileigha Work Phone: [employer] Other Start: 09-22-2022 End: 09-22-2022 Patient encounter procedure DO Shannon Parish Szymanskileigha Work Phone: [facility] Start: 09-14-2022 End: 09-14-2022 ambulatory Eliceo Willams Other [employer] Other Start: 09-14-2022 Encounter by sierra Willams [facility] [place] Start: 09-14-2022 Office outpatient vi sit 15 minutes Annette Harris [facility] [place] Start: 09-14-2022 Telephone encounter Annette [facility] Start: 08-16-2022 ambulatory Mary Obrien MD Work Phone: Colorectal Surgery Comment on above: CT results Ct scan result quest ion Start: 08-16-2022 E-mail encounter fro m caregiver Mary Obrien MD Work Phone: [facility] Start: 08-12-2022 End: 08-12-2022 Subsequent hospital visit by physician Ct Prep [facility] Start: 07-27-2022 End: 07-28-2022 ambulatory [facility] Facility:[facility]1 Start: 07-26-2022 Telephone encounter Isra Ila Masters DO Work Phone: Gastroenterology Comment on above: Medication Problem; Medication 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 ([place] for Dexlansoprazole) Start: 07-26-2022 End: 07-26-2022 Patient encounter procedure Mary Obrien MD Work Phone: Colorectal Surgery Comment on above: Follow-up examinatio n after colorectal surgery (Primary Dx); Periumbilical abdominal pain; Outlet dysfunction constipation; Colonic inertia Start: 06-08-2022 (Procedure) Short Annette Harris [facility] Start: 06-08-2022 End: 06-08-2022 ambulatory Annette Harris Other [employer] Other Start: 05-30-2022 Refill Mary Obrien MD Work Phone: Colorectal Surgery Comment on above: Refill Request Start: 05-26-2022 End: 05-26-2022 ambulatory Annette Harris Other [employer] Other Start: 05-26-2022 Office outpatient vi sit 25 minutes Annette Harris [facility] [place] Start: 05-12-2022 Office consultation new/estab patient 60 min Eliceo Willams Work Phone: [facility] 250 DO Work Phone: Start: 05-10-2022 End: 05-10-2022 ambulatory Allison Arita Other [employer] Other Start: 05-10-2022 Office outpatient vi sit 15 minutes Allison Arita [facility] Start: 05-03-2022 Telephone encounter Mary brewer MD Work Phone: Colorectal Surgery Comment on above: Journal Clerk - O ther Start: 04-26-2022 Telephone encounter Mary brewer MD Work Phone: Colorectal Surgery Comment on above: Patient Question Start: 04-22-2022 End: 04-22-2022 Patient encounter procedure Jessi Sheets [employer] Work Phone: Colorectal Surgery Comment on above: Follow-up examinatio n after colorectal surgery (Primary Dx); Pelvic floor dysfunction Start: 04-17-2022 End: 04-17-2022 ambulatory CHASITY FREIRE . Facility: Start: 04-07-2022 Telephone encounter Rachael Kenny [facility] Comment on above: PostOp Follow-up Start: 03-22-2022 Telephone encounter Mary brewer MD Work Phone: Colorectal Surgery Comment on above: Patient Question Start: 03-15-2022 End: 03-15-2022 ambulatory Annette Harris Other [employer] Other Start: 03-15-2022 Office outpatient vi sit 15 minutes Annette Harris [facility] [place] Start: 03-15-2022 Telephone encounter Mary brewer MD Work Phone: Colorectal Surgery Comment on above: Journal Clerk - O ther Medication Preauthor ization (PA for Dexilant renewal) Outside Labs Results Start: 03-15-2022 End: 03-15-2022 Patient encounter procedure Isra Masters DO Work Phone: Gastroenterology Comment on above: Gastroesophageal ref lux disease, unspecified whether esophagitis present; Chronic idiopathic constipation Start: 03-14-2022 End: 03-14-2022 [facility] 4 Work Phone: Pre Anesthesia Comment on above: Preop examination (P rimary Dx); Attention to ileostomy (HCC); Primary hypertension; Gastroparesis; Gastroesophageal reflux disease, unspecified whether esophagitis present; Mild persistent asthma without complication; Bipolar 1 disorder (HCC); Obesity (BMI 30.0-34.9) Start: 03-14-2022 End: 03-14-2022 Preprocedural examination done [facility] 4 Work Phone: Pre Anesthesia Start: 02-28-2022 Telephone encounter Isra Masters DO Work Phone: Gastroenterology Comment on above: Appointment (for scr ipt refill) Start: 02-18-2022 End: 02-18-2022 Patient encounter procedure Nelsy Chávez APRN.LINING CLOSER Work Phone: URO/Gynecology Comment on above: Postoperative state (Primary Dx) Start: 02-11-2022 End: 02-11-2022 ambulatory Flaca Bartholomew PT Work Phone: [facility] Start: 02-11-2022 End: 02-11-2022 Follow-up encounter Flaca Bartholomew PT Work Phone: [facility] Physical Therapy Comment on above: Pelvic floor dysfunc tion (Primary Dx); Lack of coordination; Follow-up examination after colorectal surgery Start: 02-09-2022 (Procedure) Win Harris [facility] Start: 02-09-2022 End: 02-09-2022 ambulatory Annette Harris Other [employer] Other Start: 02-08-2022 End: 02-08-2022 Patient encounter procedure Mary Obrien MD Work Phone: Colorectal Surgery Comment on above: Follow-up examinatio n after colorectal surgery (Primary Dx) Post-operative state (Primary Dx); Yeast infection of the skin Start: 02-01-2022 Refill Isra S Clin e DO Work Phone: Gastroenterology Comment on above: Refill Request (dexl ansoprazole) Start: 01-31-2022 End: 01-31-2022 ambulatory Newton Woodward PT Work Phone: [facility] Start: 01-31-2022 End: 01-31-2022 Follow-up encounter Newton Woodward PT Work Phone: [facility] Physical Therapy Comment on above: Pelvic floor dysfunc tion (Primary Dx); Lack of coordination; Follow-up examination after colorectal surgery Start: 11-25-2021 End: 11-25-2021 ambulatory Annette Harris Other [employer] Other Start: 11-25-2021 Office outpatient vi sit 25 minutes Annette Pradeeptonia [facility] [place] Start: 11-17-2021 End: 11-18-2021 ambulatory PARISH WILLAMS [facility] Start: 10-20-2021 End: 10-20-2021 ambulatory Annette Harris Other [employer] Other Start: 10-20-2021 Office outpatient vi sit 25 minutes Annette Harris [facility] [place] Start: 10-13-2021 (Procedure) Short Annette Harris [facility] Start: 10-13-2021 End: 10-13-2021 ambulatory Annette Harris Other [employer] Other Start: 09-06-2021 Office outpatient vi sit 25 minutes Annette Harris [facility] [place] Start: 08-19-2021 Office outpatient vi sit 15 minutes Erica Kingston [facility] Start: 08-13-2021 Office outpatient vi sit 15 minutes Tita Dat [facility] Start: 08-12-2021 Office outpatient vi sit 25 minutes Annette Harris [facility] [place] Start: 07-28-2021 Office outpatient vi sit 25 minutes Annette Harris [facility] [place] Procedures Date Procedure Procedure Detail Performing Clinician Start: 10-23-2023 Follow-up visit Follow-up PAULINE CHRISTENSEN Start: 08-12-2023 Assay of troponin quantitative Lev Ritter APRN [employer] Work Phone: Start: 08-12-2023 Ct abdomen & pelvis w/contrast material Lev Ritter APRN [employer] Work Phone: Start: 08-12-2023 Urnls dip stick/tabl et reagent auto microscopy Lex Salmon MD Work Phone: Start: 08-12-2023 Basic metabolic pane l calcium total Lex Salmon MD Work Phone: Start: 08-12-2023 DARK GREEN TOP Lex buitrago MD Work Phone: Start: 08-12-2023 GOLD TOP Lex bacon MD Work Phone: Start: 08-12-2023 Hepatic function panel Lev Ritter APRN [employer] Work Phone: Start: 08-12-2023 LIGHT BLUE TOP [...] et rgnt auto w/o microscopy Nelsy Chávez APRN.LINING CLOSER Work Phone: Start: 06-05-2023 Plain chest X-ray [...] - S jay or Plasma Nelsy Chávez APRN.LINING CLOSER Work Phone: Start: 02-08-2022 Urnls dip stick/tabl et rgnt auto w/o microscopy Magali Mitchell APRN.LINING CL[employer]ER Work Phone: Start: 12-16-2021 Antibody screen Comment on above: Performed By: #### T [id number] ####[address] [phone] Start: 10-15-2021 Antibody screen Comment on above: Performed By: #### T [id number] ####[address] [phone] Start: 06-28-2021 Mammography Mary brewer MD Work Phone: Colonoscopy Eliceo R Dalia Work Phone: Hysterectomy Eliceo Willams Work Phone: Ligation of fallopian tube G eorbahman Willams Work Phone: Operation on colon Eliceo Willams Work Phone: Operation on rectum Eliceo Willams Work Phone: Operative procedure on foot Eliceo Willams Work Phone: Operative procedure on hand Eliceo Willams Work Phone: Operative procedure on knee Eliceo Willams Work Phone: Procedure on neck Eliceo Elliott affiona Work Phone: Repair of musculoten dinous cuff of shoulder Eliceo Willams Work Phone: Tonsillectomy and adenoidectomy Eliceo Willams Work Phone: Plan of Treatment Date Care Activity Detail Author Start: 06-22-2030 Administration of diphtheria + tetanus + acellular pertussis vaccine DTAP/TDAP/TD VACCINE (2 - Td or Tdap) [facility] Start: 06-22-2030 Urine microalbumin profile DTaP,Tdap,Td Vaccine (2 - Td or Tdap) [facility] Start: 12-05-2027 COLORECTAL CANCER SCREENING COLORECTAL CANCER SCREENING [facility] Start: 12-05-2027 SIGMOIDOSCOPY SIGMOIDOSCOPY [facility] Start: 03-02-2027 Lipid 1996 panel - S jay or Plasma Lipid Screening [facility] Start: 03-02-2027 LIPID SCREEN LIPID SCREEN [facility] Start: 04-05-2025 DIABETES SCREEN DIABETES SCREEN [facility] Start: 04-05-2025 Diabetes Screening Diabetes Screenin g [facility] Start: 03-14-2025 DIABETES SCREEN DIABETES SCREEN [facility] Start: 12-26-2024 DIABETES SCREEN DIABETES SCREEN [facility] Start: 09-27-2023 End: 12-27-2023 Bacteria identified in Urine by Culture URINE CULTURE Microbiology Routine Burning with urination Expected: 09/27/2023, Expires: 12/27/2023 [facility] Work Phone: Comment on above: Expected: 09/27/2023 , Expires: 12/27/2023 Start: 09-14-2023 Screening for malign ant neoplasm of breast MAMMOGRAM [facility] Start: 08-01-2023 FUV, Provider: Juan Anaya, Status: Pen, Time: 11:00 AM FUV, Provider: Juan Anaya, Status: Pen, Time: 11:00 AM [facility] 320 DO Work Phone: Start: 07-07-2023 Covid-19 Vaccine ( season) Covid-19 Vaccine ( season) [facility] Start: 07-07-2023 Influenza vaccination C [facility] Start: 07-07-2023 Influenza vaccinatio n given INFLUENZA VACCINE (#1) [facility] Start: 06-05-2023 [facility] Start: 04-22-2023 BP CONTROLLED (<130/80) BP CONTROLLE D (<130/80) [facility] Start: 03-14-2023 BP CONTROLLED (<130/80) BP CONTROLLE D (<130/80) [facility] Start: 02-18-2023 BP CONTROLLED (<130/80) BP CONTROLLE D (<130/80) [facility] Start: 02-08-2023 BP CONTROLLED (<130/80) BP CONTROLLE D (<130/80) [facility] Start: 01-18-2023 BP CONTROLLED (<130/80) BP CONTROLLE D (<130/80) [facility] Start: 11-06-2022 DEPRESSION ASSESSMENT DEPRESSION ASS ESSMENT [facility] Start: 09-22-2022 [facility] Start: 08-02-2022 End: 08-25-2023 Ct abdomen & pelvis w/contrast material CT ABD/PEL W IVCON Radiology Routine Periumbilical abdominal pain Expected: 08/02/2022, Expires: 08/25/2023 [facility] Work Phone: Comment on above: Expected: 08/02/2022 , Expires: 08/25/2023 Start: 07-07-2022 Influenza vaccination C [facility] Start: 06-28-2022 Mammography [facility] Start: 2022 COVID-19 VACCINE (4 - Booster for Pfizer series) COVID-19 VACCINE (4 - Booster for Pfizer series) [facility] Start: 2022 SHINGRIX VACCINE (1 of 2) SHINGRIX VACCINE (1 of 2) [facility] Start: 2022 Zoster vaccine hzv l annika for subcutaneous use ZOSTER (SHINGLES) VACCINE (1 of 2) [facility] Start: 04-01-2022 End: 06-01-2022 CBC W Auto Differential panel - Blood CBC + DIFF Lab Routine Follow-up examination after colorectal surgery Expected: 04/01/2022, Expires: 06/01/2022 [facility] Work Phone: Comment on above: Expected: 04/01/2022 , Expires: 06/01/2022 Start: 04-01-2022 End: 06-01-2022 Comprehensive metabolic 2000 panel - Serum or Plasma COMP METABOLIC PANEL Lab Routine Follow-up examination after colorectal surgery Expected: 04/01/2022, Expires: 06/01/2022 [facility] Work Phone: Comment on above: Expected: 04/01/2022 , Expires: 06/01/2022 Start: 04-01-2022 End: 06-01-2022 TYPE AND SCREEN,30 DAY TYPE AND SCREEN,30 DAY Blood Bank Routine Follow-up examination after colorectal surgery Expected: 04/01/2022, Expires: 06/01/2022 [facility] Work Phone: Comment on above: Expected: 04/01/2022 , Expires: 06/01/2022 Start: 01-19-2022 COVID-19 VACCINE (4 - Booster for Pfizer series) COVID-19 VACCINE (4 - Booster for Pfizer series) [facility] Start: 01-19-2022 COVID-19 VACCINE (4 - Pfizer series) COVID-19 VACCINE (4 - Pfizer series) [facility] Start: 11-06-2021 DEPRESSION ASSESSMENT DEPRESSION ASS ESSMENT [facility] Start: 07-07-2021 Influenza vaccination INFLUENZA (#1) [facility] Start: 2017 COLOGUARD (FIT-DNA) COLOGUARD (FIT-D NA) [facility] Start: 2017 Colonoscopy COLONOSCOPY [facility] Start: 2017 COLORECTAL CANCER SCREENING COLORECTAL CANCER SCREENING [facility] Start: [address] COLONOGRAPHY [facility] Start: 2017 FECAL OCCULT BLOOD FECAL OCCULT BLOO D [facility] Start: 2017 LIPID SCREEN LIPID SCREEN [facility] Start: 2017 Screening for malign ant neoplasm of colon [facility] Start: 2017 SIGMOIDOSCOPY SIGMOIDOSCOPY [facility] Start: 2012 Mammography MAMMOGRAM [facility] Start: 10-11-2008 Hepatitis B Vaccine (3 of 3 - 19+ 3-dose series) Hepatitis B Vaccine (3 of 3 - 19+ 3-dose series) [facility] Start: 2002 HPV TESTING HPV TESTING [facility] Start: 1993 PAP TESTING PAP TESTING [facility] Start: 1991 Urine microalbumin profile [facility] Start: 1990 ANNUAL PCP TEAM 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 INSTALLER ALEKSANDAR DISEASE VISIT ANNUAL PCP TEAM CHRONIC DISEASE VISIT [facility] Start: 1990 ANNUAL WELLNESS VISIT ANNUAL WELLNES S VISIT [facility] Start: 1990 BP CONTROLLED (<130/80) BP CONTROLLE D (<130/80) [facility] Start: 1990 HEPATITIS C SCREENING HEPATITIS C SC REENING [facility] Start: 1990 HIV SCREENING HIV SCREENING [facility] Start: 1984 Adult depression screening assessment DEPRESSION SCREENING [facility] Start: 1984 Depression screening using PHQ-9 (Patient Health Questionnaire 9) score DEPRESSION SCREENING [facility] Start: 1978 PNEUMOCOCCAL (1 - PCV) PNEUMOCOCCAL (1 - PCV) [facility] Start: 1978 Pneumococcal vaccination Pneum ococcal Vaccine (1 - PCV) [facility] Start: 1972 HEPATITIS B (1 of 3 - 3-dose series) HEPATITIS B (1 of 3 - 3-dose series) [facility] Start: 1972 Hepatitis B Vaccine (1 of 3 - 3-dose series) Hepatitis B Vaccine (1 of 3 - 3-dose series) [facility] Start: 1972 HPV/COTEST HPV[facility]OTEST [facility] Start: 1972 Screening for malign ant neoplasm of cervix [employer] 12 lead ECG EKG 12 lead ECG REYNA 08/12/2023 12:28 AM [facility] Work Phone: CT Abdomen and Pelvi s W contrast IV CT Abdomen / Pelvis With IV Contrast ONLY Imaging STAT 08/12/2023 5:42 AM [facility] End: 01-12-2024 EGD - THERAPEUTIC, EUS, OR TUBE INTERVENTIONS EGD - THERAPEUTIC, EUS, OR TUBE INTERVENTIONS Endoscopy Routine Gastroparesis 1 Occurrences starting 01/11/2023 until 01/12/2024 [facility] Work Phone: Comment on above: 1 Occurrences starti ng 01/11/2023 until 01/12/2024 FAT, FECAL QUAL FAT, FECAL QUAL Lab Routine Diarrhea due to malabsorption Ordered: 03/15/2023 [facility] Work Phone: Comment on above: Ordered: 03/15/2023 End: 10-11-2023 Gi transit & pres ravinder wireless capsule w/interp CAPSULE ENDOSCOPY SMART Endoscopy Routine Gastroparesis 1 Occurrences starting 10/11/2022 until 10/11/2023 [facility] Work Phone: Comment on above: 1 Occurrences starti ng 10/11/2022 until 10/11/2023 End: 12-17-2023 PAP TITRATION PSG (CPAP, BIPAP, ASV) PAP TITRATION PSG (CPAP, BIPAP, ASV) Procedures Routine CHUCKIE (obstructive sleep apnea) 1 Occurrences starting 11/17/2022 until 12/17/2023 [facility] Work Phone: Comment on above: 1 Occurrences starti ng 11/17/2022 until 12/17/2023 Patient Education Chest Pain, Adult ED [facility] Work Phone: Patient referral [facility] Work Phone: SARS-CoV-2 (COVID-19 ) RNA [Presence] in Respiratory specimen by JOSÉ MIGUEL with probe detection SELF CHECK COVID Microbiology Routine Follow-up examination after colorectal surgery Ordered: 02/09/2022 [facility] Work Phone: Comment on above: Ordered: 02/09/2022 End: 11-30-2023 SIGMOIDOSCOPY SIGMOIDOSCOPY Endoscopy Routine Chronic idiopathic constipation 1 Occurrences starting 11/30/2022 until 11/30/2023 [facility] Work Phone: Comment on above: 1 Occurrences starti ng 11/30/2022 until 11/30/2023 End: 08-12-2023 Troponin I.cardiac [Mass/volume] in Serum or Plasma Troponin I (One time) Lab Timed Once for 1 Occurrences starting 08/12/2023 until 08/12/2023 [facility] Work Phone: Comment on above: Once for 1 Occurrenc es starting 08/12/2023 until 08/12/2023 URODYNAMICS WHI URODYNAMICS [facility]I Procedures Routine Incomplete bladder emptying Urinary urgency Urinary frequency Nocturia Ordered: 07/31/2023 [facility] Work Phone: Comment on above: Ordered: 07/31/2023 [facility] Immunizations Immunization Date Immunization Notes Care Provider Shante rai 08-17-2022 influenza virus vaccine, unspecified formulation Nelsy Philippeludmila QUIGLEY.LINING CLOSER Work Phone: [facility] 11-24-2021 Pfizer-BioNTech COVID-19 Vacc 30 MCG/0.3ML Intramuscular Suspension [facility]iceo Willams [facility] Work Phone: 08-19-2021 KENALOG - 10 mg Erica Josémon d Other [employer] Other 05-11-2021 Pfizer-BioNTech COVID-19 Vacc 30 MCG/0.3ML Intramuscular Suspension [facility] Willams [facility] Work Phone: 04-20-2021 Pfizer-BioNTech COVID-19 Vacc 30 MCG/0.3ML Intramuscular Suspension Eliceo Ellis Stephonleigha Work Phone: [place] [address] DO Work Phone: 09-02-2020 influenza, injectabl e, quadrivalent, preservative free Eliceo Ellis Stephonleigha Work Phone: [facility] DO Work Phone: 08-06-2020 influenza, injectabl e, quadrivalent, preservative free Eliceo Ellis Stephonleigha Work Phone: [place] [address] DO Work Phone: 06-22-2020 tetanus toxoid, redu nayeli diphtheria toxoid, and acellular pertussis vaccine, adsorbed Eliceo Ellis Stephonleigha Work Phone: [facility] DO Work Phone: 02-01-2020 Toradol per [address] Other [employer] Other 07-15-2018 influenza, seasonal, injectable, preservative free Eliceo Willams Work Phone: [facility] [employer] DO Work Phone: 07-14-2016 Rocephin 500 mg Annette ellis Other [facility] [employer] Other 05-12-2008 hepatitis B vaccine, adult dosage Eliceo Willams Work Phone: -[facility] [employer] 250 DO Work Phone: 04-11-2008 hepatitis B vaccine, adult dosage Eliceo Willams Work Phone: -[facility] [employer] [place] 250 DO Work Phone: Payers Date Payer Category Payer Self-pay [id number] 2021 Medicaid [employer] [id number] 2021-Present [phone] [address] [place] [address] Medicaid [id number] 2021 Medicaid [id number] 1972 Unknown [id number] 2.16.840.1.489592.3.579.2.176 1972 Unknown [id number] 2.16.840.1.496852.3.579.2.593 1972 Unknown [id number] 2.16.840.1.599129.3.579.2.593 1972 Unknown [id number] 2.16.840.1.445944.3.579.2.593 1972 Unknown [id number] 2.16.840.1.374185.3.579.2.593 1972 Unknown [id number] 2.16.840.1.261320.3.579.2.593 1972 Unknown [id number] 2.16.840.1.009128.3.579.2.593 1972 Unknown [id number] 2.16.840.1.073523.3.579.2.593 1972 Unknown [id number] 2.16.840.1.178762.3.579.2.593 1972 Unknown [id number] 2.16.840.1.882612.3.579.2.593 1972 Unknown [id number] 2.16.840.1.010797.3.579.2.593 1972 Unknown [id number] 2.16.840.1.011359.3.579.2.593 1972 Unknown [id number] 2.16.840.1.712023.3.579.2.593 1972 Unknown [id number] 2.16.840.1.792703.3.579.2.593 1972 Unknown [id number] 2.16.840.1.168748.3.579.2.593 1972 Unknown [id number] 2.16.840.1.900742.3.579.2.593 1972 Unknown [id number] 2.16.840.1.471792.3.579.2.593 1972 Unknown [id number] 2.16.840.1.779752.3.579.2.593 1972 Unknown [id number] 2.16.840.1.242156.3.579.2.297 1972 Unknown [id number] 2.16.840.1.026993.3.579.2.297 1972 Unknown [id number] 2.16.840.1.227999.3.579.2.356 1972 Unknown [id number] 2.16.840.1.736688.3.579.2.356 1972 Unknown [id number] 2.16.840.1.034018.3.579.2.356 1972 Unknown [id number] 2.16.840.1.838590.3.579.2.1286 1972 Unknown [id number] 1970 Unknown [id number] 1970 Unknown [id number] [id number] 1972 Unknown [id number] [id number] 1972 Unknown [id number] [id number] 1972 Unknown [id number] [id number] 1972 Unknown [id number] 1957 Medicaid [id number] 1957 Unknown [id number] Unknown Unknown [employer] [id number] Unknown [id number] Unknown [id number] Unknown [id number] Unknown [id number] Social History Date Type Detail Facility Start: 10-08-2020 End: 08-12-2023 Tobacco smoking status NHIS Never smoked tobacco [facility] Start: 10-08-2020 End: 08-12-2023 Tobacco use and exposure Smokeless tobacco non-user [facility] Start: 01-04-2022 End: 09-27-2023 Alcohol intake Lifetime non-drinker (finding) [facility] Start: 10-08-2020 History SDOH Alcohol Frequency 1 [facility] Start: 1970 Sex Assigned At Female C [facility] Start: 01-21-2022 End: 07-26-2022 Exposure to SARS-CoV-2 (event) Not sure [facility] Start: 10-08-2020 End: 07-31-2023 Sex Assigned At [facility] Start: 10-08-2020 End: 07-31-2023 No alcohol use No alcohol use [facility] Comment on above: 3 TEA WEEK; How often to you hav e a drink containing alcohol? Never [facility] Average Number of Drinks Not on file [facility] Start: 07-03-2021 Gender identity Identifies as female gender (finding) [facility] Start: 07-03-2021 Sexual orientation Heterosexual (fin ding) [facility] Start: 06-05-2023 Tobacco smoking stat us NHIS Smoker (finding) [facility] Start: 1970 Sex Assigned At Not on file [facility] [employer] [facility] Medical Equipment Procedure Code Equipment Code Equipment Origin al Text Equipment Identifier Dates Fibertak [place] Self-Punching Knotless 2.6mm W/No 5 Suture [id number] Start: 10-14-2020 Fibertak [place] Knotless 2.6mm [id number] Start: 10-14-2020 [place] Swivelock C 4.75mm Biocomposite Peek 19.1mm Suture Closed Eyelet - [id number] Start: 10-14-2020 Sling Gynecare T vt Exact Gynecological Stress Urinary Incontinence - [id number] Start: 12-24-2021 DISC CERVICAL 13 [id number] MOBI-C FDA Start: 09-20-2017 DISC CERVICAL 13 [id number] MOBI-C FDA Start: 09-20-2017 DISC CERVICAL 13 [id number] MOBI-C FDA Start: 09-20-2017 DISC CERVICAL 13 [id number] MOBI-C FDA Start: 09-20-2017 Clinical Notes 10-27-2020 to 10-12-2023 Telephone Encounter - Hardik PoeRIKI - 10/02/2023 4:00 PM ESTTelephone Encounter - Hardik Poe RIKI - 09/29/2023 12:47 PM ESTTelephone Encounter - Lex Vieyra RN - 09/27/2023 10:54 AM EST Note Date & Type Note Facility 10-12-2023 Note Patient emailed stat ing she is finding another provider and will no longer be seen at this clinic. [facility] 10-12-2023 Note HNO ID: [id number] Author: Pam Wang MD Service: ? Author [...] Video-assisted cystourethroscopy was performed using a 19 Indonesian 70 and 30 degree rigid cystoscope with [...] urethra PLAN: See progress note from today [facility] 10-10-2023 Note HNO ID: [id number] Author: Pam Wang MD Service: ? Author [...] PFSH obtained by others. Pam Wang MD Material Manager offered: Patient declines. OBJECTIVE: BP 102/60 General: [...] would like to move forward with PNE. Earnest packet given to patient today to review. [...] which included preparing to see the patient, coqe-ma-vhlc patient care, completing clinical documentation, obtaining and/or reviewing separately obtained history, performing a medically appropriate examination, counseling and educating the patient/family/caregiver, and communicating with other HCP (more content not included)... [facility] 10-02-2023 Miscellaneous Notes Patient was called to find out if there was another pharmacy to send her medication for Diflucan. Patient stated to disregard this medication. Patient stated that she does not need this medication now and that she will be visiting her PCP tomorrow (10/03/23) to address her sickness that she had before going to [place]. She states that she was going to [...] 150 MG TABLET MEREDITH: 09/27/2023 Doris Arias APRN.[facility]) ASSESSMENT: Mary Leal is a 53 year [...] Dr. Pam Wang documented in this encounter [facility] 09-27-2023 Note HNO ID: [id number] Author: Doris Arias APRN.LINING CLOSER Service: ? Author Type: Nurse Practitioner Type: [...] ache and some malodorous urine. Patient in [place], unable to come in for visit. Has [...] urination is normal and pressure with urinating RN EMBEDDED: denies abnormal vaginal bleeding, no vaginal discharge [...] Making Level: 3 - Low Doris Arias APRN.[facility] 09-27-2023 Miscellaneous Notes Scheduled 10/10/23 for Diagnostic Cystoscopy with Dr. Wagn. Last Virtual visit on 08/07/23: Impression: Mary [...] which included preparing to see the patient, qdxn-rn-osyu patient care, completing clinical documentation, obtaining and/or [...] Office will call to schedule cystoscopy. Urogynecology [facility] Main provided: Pam Wang Staff Physician, Department of Urogynecology and Pelvic Floor Disorders Worsening frequency and urgency of urination. Is a urine culture indicated? Please review/advise Lex Vieyra RN documented in this encounter [facility] 09-19-2023 Note Patient states she m istook this medication and has been off for 7 days. Restarting it at the 25mg dose. [facility] 09-11-2023 Note HNO ID: [id number] Author: Jairon Lai MD Service: ? Author Type: Physician Type: Progress Notes Filed: 09/11/2023 1:18 PM Note Text: [facility] [...] to void lower flow Jairon Lai MD [facility] 09-11-2023 Note HNO ID: [id number] Author: Phil Beckford MD Service: ? Author [...] from sling incision +/- discussion of SNM [facility] 09-01-2023 Note Spoke with patient. Canceling valium script. Increasing ativan dose to bid with current bottle for mgmt of anxiety. Appoitment on Saturday 09/08 - she will bring in ativan to count tablets. She states she has 20 left as of today. She should have 4 left at that appointment. 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 [facility] 08-23-2023 Note Psych Progress Note Time In: 925 Time Out: 940 HPI Present at Visit: Mary, provider, CCNP student Location of Service: Office Review of Systems Constitutional: Negative. Respiratory: Negative. Cardiovascular: Negative. Psychiatric/Behavioral: dysphoric mood, irritability, insomnia Date of Telehealth Visit: 08/23/23 Chief Complaint Patient presents with Telehealth Audio/video Visit [email or web address] The patient was notified that using 3rd green party telecommunication application (e.g., [employer]) is not HIPPA compliant and may carry some privacy risks. Yes The visit was conducted elza-cd-ietj with the use of audio and video technology Cellwitch between patient and provider for a virtual [...] Wear CPAP/ Insp (more content not included)... [facility] 08-21-2023 Note Est [facility] 08-12-2023 Emergency department Note Discharge, follow up, referral, and prescription information reviewed and explained; all questions and concerns addressed. Patient A/Ox3 in NAD, resp. easy unlabored upon discharge, escorted to exit by staff. [facility] 08-12-2023 Emergency department Note Discharge, follow [...] gastroparesis, gastroenteritis, acute cholecystitis, pancreatitis, less likely [place] The patient's initial and delta troponin are negative. EKG does not demonstrate any ischemic changes. Low suspicion for [place]. Her urinalysis is negative for UTI. Urine [...] She was instructed to call her chief minister and PCP to schedule follow-up appointments. She was instructed to return to the emergency department if she has any new or worsening symptoms. Patient agreeable plan of care. Return precautions discussed at bedside. Spoke with Dr. Salmon regarding patient. Physician to complete their own physical exam and evaluation. Collaboration performed between this COTTON AGENT and physician regarding patient's plan of care. [...] following orders were created for panel order [place] Draw. Procedure Abnormality Status --------- ------ Gold Top[[id number]] Final result LIGHT BLUE TOP[[id number]] Final result Dark Green Top[[id number]] Final result Please view results for these [...] PWD. NAD noted. documented in this encounter [facility] 08-12-2023 Hospital Discharge instructions Lev Ritter APRN [...] cannot be sent through Care Everywhere.Abdominal Pain (Citizen Of [place] Nigerien)documented in this encounter [facility] 08-12-2023 Emergency department Note Report to Les GAMBINO [facility] 08-12-2023 Physician Emergency department Note Images from [...] gastroparesis, gastroenteritis, acute cholecystitis, pancreatitis, less likely [place] The patient's initial and delta troponin are negative. EKG does not demonstrate any ischemic changes. Low suspicion for [place]. Her urinalysis is negative for UTI. Urine [...] She was instructed to call her chief minister and PCP to schedule follow-up appointments. She was instructed to return to the emergency department if she has any new or worsening symptoms. Patient agreeable plan of care. Return precautions discussed at bedside. Spoke with Dr. Salmon regarding patient. Physician to complete their own physical exam and evaluation. Collaboration performed between this COTTON AGENT and physician regarding patient's plan of care. [...] following orders were created for panel order [place] Draw. Procedure Abnormality Status --------- ------ Gold Top[[id number]] Final result LIGHT BLUE TOP[[id number]] Final result Dark Green Top[[id number]] Final result Please view results for these tests on the individual orders. GOLD TOP LIGHT BLUE TOP DARK GREEN TOP TROPONIN I Records reviewed: Urogynecology telemedicine visit 08/07/2023 ENT visit 07/11/2023 Family medicine visit 07/06/2023 Lev Ritter APRN CNP 08/12/23722 [facility] 08-12-2023 Emergency department Note Emily at bedside [facility] 08-12-2023 Emergency department Triage note Ambulates to triage with C/O sudden epigastric gnawing, burning pain that woke her from sleep. Also reports wheezing. States nausea. Denies fever. Alert. Respirations easy and unlabored. Skin PWD. NAD noted. [facility] 08-07-2023 Note HNO ID: [id number] Author: Pam Wang MD Service: ? Author [...] no Pain: no Abnormal Vaginal Discharge: no RN EMBEDDED 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 She has no history of an abnormal mammogram with cysts on US LMP: No LMP recorded. Patient has had a hysterectomy.; Menopause 3 years ago; hysterectomy in 2015: Menstrual history: NA; Deliveries: I have confirmed and edited as necessary, the PFSH obtained by others. Pam Wang MD Material Manager offered: Patient declines. OBJECTIVE (Virtual) There were [...] which included preparing to see the patient, asma-ys-lhjz patient care, completing clinical documentation, obtaining and/or reviewing separately obtained history, counseling and educating the patient/family/caregiver, ordering medications, tests, or procedures, and communicating with other HCPs (not separately reported). Pam Wang MD [facility] 07-31-2023 Note HNO ID: [id number] Author: Nelsy Chávez APRN.LINING CLOSER Service: ? Author Type: Nurse Practitioner Type: [...] new Pain: no Abnormal Vaginal Discharge: no RN EMBEDDED 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 She has no history of an abnormal mammogram with cysts on US LMP: No LMP recorded. Patient has had a hysterectomy.; Menopause 3 years ago; hysterectomy in 2015: Menstrual history: NA; Deliveries: I have confirmed and edited as necessary, the PFSH obtained by others. Nelsy Chávez APRN.LINING CLOSER Material Manager offered: Patient declines. OBJECTIVE: There were no [...] which included preparing to see the patient, upqr-jv-hgik patient care, completing clinical documentation, performing a medically appropriate examination, counseling and educating the patient/family/caregiver and ordering medications, tests, or procedures. [facility] 07-31-2023 History of Present illness Narrative [...] new Pain: no Abnormal Vaginal Discharge: no RN EMBEDDED 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 She has no history of an abnormal mammogram with cysts on US LMP: No LMP recorded. Patient has had a hysterectomy.; Menopause 3 years ago; hysterectomy in 2015: Menstrual history: NA; Deliveries: I have confirmed and edited as necessary, the PFSH obtained by others. Nelsy Chávez APRN.LINING CLOSER Material Manager offered: Patient declines. OBJECTIVE: There were no [...] which included preparing to see the patient, speq-go-ipwj patient care, completing clinical documentation, performing a medically appropriate examination, counseling and educating the patient/family/caregiver and ordering medications, tests, or procedures. documented in this encounter [facility] 07-25-2023 Note Patient: Mary arriaza Procedure Summary Date: 07/25/23 Room / Location: [facility] Main OR Anesthesia Start: 1104 Anesthesia Stop: 1214 Procedures: EGD DIAGNOSTIC COLONOSCOPY [...] per anesthesia protocol. No notable events documented. [facility] 07-25-2023 Note Patient: Mary arriaza Procedure Summary Date: 07/25/23 Room / Location: [facility] Main OR Anesthesia Start: 1104 Anesthesia Stop: Procedures: EGD DIAGNOSTIC COLONOSCOPY Diagnosis: Gastroesophageal reflux disease without esophagitis Nausea Diarrhea, unspecified type Scheduled Providers: Matteo Quinones MD; Blanquita Ramirez MD Responsible Provider: Blanquita Ramirez MD Anesthesia Type: MAC ASA Status: 3 Anesthesia Post Transport [facility] air Patient Monitor: direct observation Transport: uneventful Patient condition is: stable [facility] 07-25-2023 Note Patient: Mary arriaza Procedure Information Date/Time: 07/25/23 1100 Scheduled providers: Matteo Quinones MD; Blanquita Ramirez MD Procedures: EGD DIAGNOSTIC COLONOSCOPY Location: [facility] [place] Main OR Relevant Problems Anesthesia (+) CHUCKIE [...] who. Plan discussed with resident, CAA and HYDRAULIC CHAIR ASSEMBLER. 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 Do not wear perfume, make-up, nail british, or lotions on the day of your [...] need to make any changes, please call [phone]. Notify your surgeon if you develop any illness such as a cold, cough, fever, sore throat or vomiting between now and your surgery. Thank you for entrusting us with your care. [facility] Surgical Services Team [facility] 06-08-2023 Note Psych Progress Note Time In: 925 Time Out: 940 HPI Present at Visit: basia Hernandez, CCNP student Location of Service: Office Review of Systems Constitutional: Negative. Respiratory: Negative. Cardiovascular: Negative. Psychiatric/Behavioral: Negative. Date of Telehealth Visit: 06/08/23 Chief Complaint Patient presents with Telehealth Audio/video Visit [email or web address] The patient was notified that using 3rd green party telecommunication application (e.g., [employer] World[employer]) is not HIPPA compliant and may carry some privacy risks. Yes The visit was conducted jgph-[id number] with the use of audio and video technology [employer] between patient and provider for a virtual [...] dictated by speech recognition. Minor errors in author agent may be present. Information on after hour access to care was provided - encouraged to use 911, [facility], their [facility] crisis hotline, or the nearest emergency room in the event of a crisis. Also informed of 24 hour access at [facility] and if in crisis after regular business hours may call the hospital gettering operator [phone]; and ask to speak with the vice president of customer service on-call. Patient Rights and Responsibilities were discussed, [...] get back t (more content not included)... [facility] 05-31-2023 Note [facility] Gastroenterolog y New Patient Visit - History & Physical CHIEF COMPLAINT Chief Complaint Patient presents with Nausea GERD Abdominal Pain New Patient HISTORY OF PRESENT ILLNESS: Mary Lael is a 53 y.o. female new patient referred by Dr. Willams for gastroparesis, GERD, and abdominal pain. Past medical history includes gastroparesis ( was evaluated by DR Masters at [facility]) and total abdominal colectomy with ileorectal [...] Abnormal mammogram Arthritis (more content not included)... [facility] 05-22-2023 Note You are not granted access to view this sensitive note. [facility] 05-17-2023 Note Psych Progress Note Time In: 1245 Time Out: 110 HPI Present at Visit: Mary Location of Service: Office Review of Systems Constitutional: Negative. Respiratory: Negative. Cardiovascular: Negative. Psychiatric/Behavioral: Negative. Date of Telehealth Visit: 05/17/23. Chief Complaint Patient presents with Telehealth Audio/video Visit [email or web address] The patient was notified that using 3rd green party telecommunication application (e.g., [employer] World[employer]) is not HIPPA compliant and may carry some privacy risks. Yes The visit was conducted gatp-ye-[id number] with the use of audio and video technology Cellwitch between patient and provider for a virtual [...] dictated by speech recognition. Minor errors in author agent may be present. Information on after hour access to care was provided - encouraged to use 911, [facility], their [facility] crisis hotline, or the nearest emergency room in the event of a crisis. Also informed of 24 hour access at [facility] and if in crisis after regular business hours may call the hospital gettering operator [phone]; and ask to speak with the vice president of customer service on-call. Patient Rights and Responsibilities were discussed, [...] alternatives to tr (more content not included)... [facility] 05-17-2023 Note You are not granted access to view this sensitive note. [facility] 04-26-2023 Evaluation note Encounter Date Diagnosis [...] Above note written by Wanda Yang LPN, Biotechnician. Edited and approved by Dr. Annette Harris MD. [employer] Other 06-12-2023 NoteYou are not granted access to view this sensitive note.[facility]06-09-2023 NoteYou are not granted access to view this sensitive note.[facility] 04-11-2023 Miscellaneous Notes* Telephone Encounter - Serenity Joseph MA - 04/11/2023 10:19 AM EDT MEREDITH=10/11/22 Spoke with patient she does need a refill Medication pended please file Rx request if appropriate Patient and pharmacy verified [facility] NoteYou are not granted access to view this sensitive note.[facility]05-15-2023 Miscellaneous Notes* Telephone Encounter - Lilli Goldberg - 03/20/2023 2:50 PM EDT Should patient follow up via virtual visit to discuss further? * Telephone Encounter - Ban Benton LPN - 03/20/2023 10:20 AM EDT Patient's stool tests came back normal. Ban Benton LPN [facility]23 NoteYou are not granted access to view this sensitive note.[facility]05-01-2023 NoteYou are not granted access to view this sensitive note.[facility]04-24-2023 NoteYou are not granted access to view this sensitive note.[facility]04-18-2023 NotePROCEDURE: XR ANKLE RT MIN 3 [...] Electronically authenticated by: ZAIDA ACOSTA Date: 2023-02-21 10:15[facility]04-18-2023 NotePROCEDURE: XR ANKLE RT MIN [...] Electronically authenticated by: ZAIDA ACOSTA Date: 2023-02-21 10:15[facility]04-17-2023 NoteYou are not granted access to view this sensitive note.[facility]04-13-2023 NotePsych Progress Note Time In: 2 Time Out: 2:25 HPI Present at Visit: Mary Location of Service: Office Review of Systems Constitutional: Negative. Respiratory: Negative. Cardiovascular: Negative. Psychiatric/Behavioral: Negative. Date of Telehealth Visit: 02/20/2023 Chief Complaint Patient presents with Telehealth Audio/video Visit [email or web address] The patient was notified that using 3rd green party telecommunication application (e.g., Facetime) is not HIPPA compliant and may carry some privacy risks. Yes The visit was conducted kupu-qo-ryzx with the use of audio and video technology Cellwitch between patient and provider for a virtual [...] dictated by speech recognition. Minor errors in author agent may be present. Information on after hour access to care was provided - encouraged to use 911, [facility], their [facility] crisis hotline, or the nearest emergency room in the event of a crisis. Also informed of 24 hour access at [facility] and if in crisis after regular business hours may call the hospital gettering operator [phone]; and ask to speak with the vice president of customer service on-call. Patient Rights and Responsibilities were discussed, [...] as all medications m (more content not included)...[facility]04-10-2023 Note Attestation signed by Grant Biswas, PhD at 02/16/2023 2:57 PM This encounter qualifies to be billed under ???Direct Supervision??? because this patient was met by a licensed clinical psychologist upon starting treatment services with the provider who is a clinical psychology butter maker. The licensed clinical psychologist providing supervision for [...] in office Patient Location: Via telehealth in [place] Telehealth Information Telehealth Mode: its learning (video + audio) The patient was notified that using 3rd green party telecommunication application is not HIPAA compliant and may carry some privacy risks: Yes Video Consent Date of Telehealth Visit: 02/13/23 The patient was notified that using 3rd green party telecommunication application (e.g. Rev Worldwide) is not HIPAA compliant and may carry some privacy risks: Yes This visit was conducted srqo-kw-sdgu with the use of audio and video technology using Pedius between patient and the provider for a virtual visit. Verbal consent to provide and bill this service was obtained on: 02/13/23 No signature was obtained due to the COVID-19 pandemic. SUBJECTIVE CC: Chief Complaint Patient presents with Therapy HPI: Mary Leal is a 52 y.o. female presenting to the [facility] Psychiatry Clinic on 02/13/23 for management of [...] (ISP): Provider: Carmen Dorsey M.A. (clinical psychology butter maker) Frequency: 1-4 weeks Patient Needs: eleviate anxiety, [...] oriented to person, orien (more content not included)...[facility]04-03-2023 Note Attestation signed by Grant Biswas, PhD at 02/06/2023 9:45 AM This encounter qualifies to be billed under ???Direct Supervision??? because this patient was met by a licensed clinical psychologist upon starting treatment services with the provider who is a clinical psychology butter maker. The licensed clinical psychologist providing supervision for [...] in office Patient Location: Via telehealth in [place] Telehealth Information Telehealth Mode: Webex (video + audio) The patient was notified that using 3rd green party telecommunication application is not HIPAA compliant and may carry some privacy risks: Yes Video Consent Date of Telehealth Visit: 02/06/23 The patient was notified that using 3rd green party telecommunication application (e.g. [employer]) is not HIPAA compliant and may carry some privacy risks: Yes This visit was conducted dafo-fd-zuim with the use of audio and video technology using Pedius between patient and the provider for a virtual visit. Verbal consent to provide and bill this service was obtained on: 02/06/23 No signature was obtained due to the COVID-19 pandemic. SUBJECTIVE CC: Chief Complaint Patient presents with Therapy HPI: Mary Leal is a 52 y.o. female presenting to the [facility] on 02/06/23 for management of depression and anxiety. Since the last visit, the patient's condition has remained stable. Session activities included: symptom monitoring, psychoeducation on obsessive thoughts/compulsive behaviors. Pt stated she has had difficulty sleeping the past week and feels tired. Pt regularly reports sleep difficulties. She stated she saw her CCNP and they discussed stopping her trazadone to see if that helps. Pt stated she did not get any sleep the nights she did not take the trazadone and thus started taking it again. She stated she will message her CCNP to let her know. Pt stated she [...] (ISP): Provider: Carmen Dorsey M.A. (clinical psychology butter maker) Frequency: 1-4 weeks Patient Needs: eleviate anxiety, [...] normal Build/Stature: N/A Gait (more content not included)...[facility]03-30-2023 NotePsych Progress Note Time In: 9:38 [...] dictated by speech recognition. Minor errors in author agent may be present. Information on after hour access to care was provided - encouraged to use 911, Rescue Crisis, [facility] crisis hotline, or the nearest emergency room in the event of a crisis. Also informed of 24 hour access at [facility] and if in crisis after regular business hours may call the hospital gettering operator [phone]; and ask to speak with the vice president of customer service on-call. Patient Rights and Responsibilities were discussed, [...] needed between scheduled f (more content not included)...[facility] 01-31-2023 NotePROCEDURE: XR FOOT RT MIN [...] Electronically authenticated by: ZAIDA ACOSTA Date: 2023-01-31 11:55[facility]03-20-2023 Note Attestation signed by Grant Biswas, PhD at 01/23/2023 11:30 AM This encounter qualifies to be billed under ???Direct Supervision??? because this patient was met by a licensed clinical psychologist upon starting treatment services with the provider who is a clinical psychology butter maker. The licensed clinical psychologist providing supervision for [...] in office Patient Location: Via telehealth in [place] Telehealth Information Telehealth Mode: Webex (video + audio) The patient was notified that using 3rd green party telecommunication application is not HIPAA compliant and may carry some privacy risks: Yes Video Consent Date of Telehealth Visit: 01/23/23 The patient was notified that using 3rd green party telecommunication application (e.g. [employer]) is not HIPAA compliant and may carry some privacy risks: Yes This visit was conducted pebf-tq-ibjm with the use of audio and video technology using Pedius between patient and the provider for a virtual visit. Verbal consent to provide and bill this service was obtained on: 01/23/23 No signature was obtained due to the COVID-19 pandemic. SUBJECTIVE CC: Chief Complaint Patient presents with Therapy HPI: Mary Leal is a 52 y.o. female presenting to the [facility] Clinic on 01/23/23 for management of [...] to live with their older sister in [place]. 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 Current [...] (ISP): Provider: Carmen Dorsey M.A. (clinical psychology butter maker) Frequency: 1-4 weeks Patient Needs: eleviate anxiety, [...] time Attention and Concent (more content not included)...[facility]03-16-2023 Miscellaneous Notes* Telephone Encounter - Jennie Moreno RN - 01/19/2023 2:17 PM EDT Please review and advise patient. documented in this encounterMedina [facility]03-13-2023 Miscellaneous Notes* Telephone Encounter - Mounika Hernandez PA-C - 01/16/2023 1:08 PM EDT Patient was scheduled for virtual PACC appt at 1300 today. Patient did not check in for visit. Called patient at [phone] to see if they needed any assistance logging in and left voicemail. This message routed to PACC schedulers to contact patient to reschedule PACC appt. Mounika Hernandez PA-C January 16, 2023 1:09 PM documented in this encounterMedina Hospital03-13-2023 History and physical note * Mounika Hernandez PA-C - 01/16/2023 1:00 PM EDT This is a virtual visit using [employer] video visit. It required patient-provider interaction for themedical decision making as documented below. I have communicated my name and active licensure. The patient's identity and physical location wereverified at the time of this visit. Either the patient or their legal community health representative has been informed of the risks and benefits of and alternatives to treatment through a remote evaluation and consents to proceed with the evaluation remotely. Surgeon: Winston Hannah DO Type of surgery: GEN SURG: POP Patient scheduled for surgery on 02/08/23 . Surgery Location: [facility] Diagnosis: Preop examination (primary encounter diagnosis) Nausea Chuckie (obstructive sleep apnea) Mild persistent asthma without complication Gastroesophageal reflux disease, unspecified whether esophagitis present Gastroparesis Ht 5' 4 (1.63m) Wt 150 lb (68.0kg) BMI 25.73 kg/(m^2). H&P completed: 01/10/[address] Grubic Social History Tobacco Use Smoking status: Never [...] in the AM and 4 mg PM epsyzdsemrf-nqpyucqpk-ovderaat (TRELEGY ELLIPTA) 100-62.5-25 mcg Inhale 1 Puff [...] 16, 2023 12:36 PM documented in this encounterMedina Hospital03-13-2023 Instructions* Patient Instructions* Mounika Hernandez PA-C - 01/16/2023 12:38 PM EDT PATIENT PREOPERATIVE INSTRUCTIONS Winston Hannah DO has scheduled you for your procedure at this surgery center: [facility]: [phone] -- [address] [address]. Please read below carefully for your personalized [...] Procedures: - YOU MUST HAVE A RESPONSIBLE TOOLING SPECIALIST TAKE YOU HOME. A AGRICULTURE INSTRUCTOR OR MEDICAL UNDERWRITER CANNOT BE MADE A RESPONSIBLE TOOLING SPECIALIST. - We recommend that a responsible person [...] Advance Directive, please fax a copy to [phone] or email to for it to be [...] day. Mounika Hernandez PA-C documented in this encounterMedina Hospital03-08-2023 Miscellaneous Notes* Telephone Encounter - Berta Ann RN - 01/11/2023 9:47 AM EST Procedure pended for 02/08/23. Pt aware of need for PACC. Pre-op instructions reviewed, will send to pt's MC, per pt request. Postop appt scheduled. No other questions at this time. Berta HENSON, RN Specialty Journal Clerk documented in this encounterMedina Hospital03-07-2023 NoteHNO ID: [id number] Author: Winston Hannah DO Service: ? Author Type: Physician Type: Progress Notes Filed: 01/10/2023 6:08 PM Note Text: [facility] [place] Gastroparesis/Dysmotility Follow Up This encounter was provided [...] of care. NAME: Mary Leal CLINIC NO: [id number] CHIEF COMPLAINT Idiopathic Gastroparesis HISTORY OF PRESENT [...] thin barium without ob (more content not included)...[facility] 01-10-2023 History of Present illness Narrative* Winston Hannah, DO - 01/10/2023 9:09 AM EST Images from the original note were not included. [facility] [place] Gastroparesis/Dysmotility Follow Up This encounter was provided via two-way, live video teleconferencing within the guidelines of [facility] rules for new and established patients. The [...] operative findings) with partial fundoplication (toupee), based onresponse to the POP procedure PLAN [...] of care. NAME: Mary Leal CLINIC NO: [id number] CHIEF COMPLAINT Idiopathic Gastroparesis HISTORY OF PRESENT [...] Normal gastric transit Normal small bowel transit [id number] transit in the distal bowel consistent delay [...] (FLONASE) 50 mcg/actuation nasal spray Use 1 Dougherty in each nostril once daily. carBAMazepine XR [...] THE LUNGS every 4 hours if needed ajtmuywlisb-vqpueeczc-iteipkhp (TRELEGY ELLIPTA) 100-62.5-25 mcg Inhale 1 Puff [...] dialysis. No history of symptoms or problems. RN EMBEDDED: Negative for abnormal vaginal bleeding, abnormal vaginal [...] and plan of care. documented in this encounterMedina Hospital03-03-2023 NoteDepartment of Psychiatry Outpatient Progress Note Time In: 2:30 PM Time Out: 3:00 PM Present At Visit: Patient Clinician Location: Clinician via telehealth Patient Location: Meeting remotely by telephone today (patient unable to connect by video). Subjective CC: Chief Complaint Patient presents with Telehealth Audio/video Visit HPI: Mary Leal is a 52 y.o. female presenting to the [facility] on 01/06/2023 for medication management [...] week. Annette Swanson DO (more content not included)...[facility] 01-02-2023 NotePsychiatry Psychotherapy Progress Note Time In: 11:00 am Time Out: 11:53 am Present At Visit: Patient Clinician Location: Clinician in office Patient Location: Via telehealth in [place] Telehealth Information Telehealth Mode: Webex (video + audio) The patient was notified that using 3rd green party telecommunication application is not HIPAA compliant and may carry some privacy risks: Yes Video Consent Date of Telehealth Visit: 01/02/23 The patient was notified that using 3rd green party telecommunication application (e.g. [employer]) is not HIPAA compliant and may carry some privacy risks: Yes This visit was conducted xqoc-ba-rmrf with the use of audio and video technology using Pedius between patient and the provider for a virtual visit. Verbal consent to provide and bill this service was obtained on: 01/02/23 No signature was obtained due to the COVID-19 pandemic. SUBJECTIVE CC: Chief Complaint Patient presents with Therapy HPI: Mary Leal is a 52 y.o. female presenting to the [facility] on 01/02/23 for management of depression and anxiety. Since the last visit, the patient's condition has improved Session activities included: reviewed and discussed acts of self-care and value-focused behaviors. Pt stated she had an epiphany last week and made the decision to have her niece and nephew live with their sister in [place]. Pt stated she is done raising kids [...] with her children before they go to [place]. Pt acknowledged she was not looking forward [...] (ISP): Provider: Carmen Dorsey M.A. (clinical psychology butter maker) Frequency: 1-4 weeks Patient Needs: eleviate anxiety, [...] Disp: , Rfl: alend (more content not included)...[facility] 12-29-2022 Miscellaneous Notes* Addendum Note - Yoni Tuttle MD - 12/29/2022 3:37 PM ESTAddended by: YONI TUTTLE MD on: 12/29/2022 03:37 PM Modules accepted: Orders documented in this encounterMedina Hospital02-20-2023 NoteHNO ID: [id number] Author: Deb Booker RT(R) Service: Radiology Author [...] BY: RT Елена(R) December 26, 2022 3:17 [facility]02-20-2023 History of Present illness Narrative* RT Елена(R) [...] 26, 2022 3:17 PM documented in this encounterMedina Hospital02-17-2023 Miscellaneous Notes* Telephone Encounter - Uziel Serrano RN - 12/23/2022 4:36 PM EST Message being addressed in another encounter that was forwarded to provider documented in this encounterMedina Hospital02-16-2023 NoteHNO ID: [id number] Author: Winston Hannah, DO Service: ? Author Type: Physician Type: Progress Notes Filed: 12/22/2022 9:32 AM Note Text: [facility] [place] Gastroparesis/Dysmotility Follow Up This encounter was provided [...] completed esophagram NAME: Mary Leal CLINIC NO: [id number] CHIEF COMPLAINT Idiopathic Gastroparesis HISTORY OF PRESENT [...] chicken spaghetti etc. Duration of symptoms (months): 0270-0895 Weight changes in last 3 months: Stable [...] transit. WGTT: 24:32 Normal (more content not included)...[facility] 12-22-2022 History of Present illness Narrative* Winston Kenny Brielle, DO - 12/22/2022 8:52 AM EST Images from the original note were not included. [facility] [place] Gastroparesis/Dysmotility Follow Up This encounter was provided [...] surgical therapy for gastroparesis in detail. Mary D Elvis is candidate for continuework up and medical therapies. -Complete Barium Esophagram -Smart Pill Reviewed -Continue Dexilant every day -GERD Lifestyle modifications and diet reviewed -GP diet as tolerated -Follow up in 4-6 weeks with completed esophagram NAME: Mary Leal CLINIC NO: [id number] CHIEF COMPLAINT Idiopathic Gastroparesis HISTORY OF PRESENT [...] chicken spaghetti etc. Duration of symptoms (months): 3687-4647 Weight changes in last 3 months: Stable [...] Normal gastric transit Normal small bowel transit [id number] transit in the distal bowel consistent delay [...] TONSILLECTOMY HX 07/2021 revision VAGINAL HYSTERECTOMY 2014 [facility] 10/2015 for endometriosis, has remaining both FAMILY [...] (FLONASE) 50 mcg/actuation nasal spray Use 1 Dougherty in each nostril once daily. carBAMazepine XR [...] THE LUNGS every 4 hours if needed nmykntnurhs-vqmgsdmlz-tbuqqeip (TRELEGY ELLIPTA) 100-62.5-25 mcg Inhale 1 Puff [...] dialysis. No history of symptoms or problems. RN EMBEDDED: Negative for abnormal vaginal bleeding, abnormal vaginal [...] and plan of care. documented in this encounterMedina Hospital02-15-2023 NotePROCEDURE: XR FOOT RT MIN 3 [...] Electronically authenticated by: ZAIDA ACOSTA Date: 2022-12-21 12:24[facility]02-09-2023 NoteHNO ID: [id number] Author: Mary Obrien MD Service: ? Author [...] TONSILLECTOMY HX 07/2021 revision VAGINAL HYSTERECTOMY 2014 [facility] 10/2015 for endometriosis, has remaining both Current [...] in the AM and 4 mg PM jlltxdnmjlz-htlelwugz-foinhozr (TRELEGY ELLIPTA) 100-62.5-25 mcg Inhale 1 Puff [...] which included preparing to see the patient, nlxq-cf-wqgr patient care, co (more content not included)...[facility]02-09-2023 History of Present illness Narrative* Mary Obrien MD - 12/15/2022 8:40 AM EST COLORECTAL SURGERY December 15, 2022 Mary Kenny [...] in the AM and 4 mg PM bksejqmyrmm-esphftuts-qrgkivlr (TRELEGY ELLIPTA) 100-62.5-25 mcg Inhale 1 Puff [...] Abdomen, CT Pelvis I have discussed Mary Ludmila Leal's treatment plan and/or results with the patient, Dr. Masters. I spent a total of 40 minutes on the date of the service which included preparing to see the patient, kxna-gu-hiyl patient care, completing clinical documentation, obtaining and/or reviewing separately obtained history, counseling and educating the patient/family/caregiver, ordering medications, quincy ts, or procedures, communicating with other HCPs (not separately reported), independently interpreting results (not separately reported), communicating results to the patient/family/caregiver, and care coordination (not separately reported). Mary Obrien MD Colorectal Surgery documented in this encounterMedina Hospital02-08-2023 Miscellaneous Notes* Telephone Encounter - Patricia Benton RN - 12/14/2022 5:19 PM EST Several attempts to reach pt unsuccessful - MC sent. * Telephone Encounter - Barber Marie - 12/02/2022 8:39 AM EST SLEEP PHONE Name of caller: Mary Leal Relationship to patient : Self In-state or juv-ti-wfdxj patient: In-State Was permission obtained from patient? Yes Patient identified by Name and Date of . ( Mary Leal, 1970). Yes Reason for Call : Patient said her and Patricia was chatting through my chart and Patricia calledher about 5:15 yesterday. Number to return call [phone] Okay to leave a message ? Yes Last office visit 10/14/[address] Kusum guzman Next office visit 01/13/[address] Kusum guzman documented in this encounterMedina Hospital02-06-2023 NotePsychiatry Psychotherapy Progress Note Time In: 8:30 am Time Out: 9:25 am Present At Visit: Patient Clinician Location: Clinician in office Patient Location: Via telehealth in [place] Telehealth Information Telehealth Mode: Webex (video + audio) The patient was notified that using 3rd green party telecommunication application is not HIPAA compliant and may carry some privacy risks: Yes Video Consent Date of Telehealth Visit: 12/12/22 The patient was notified that using 3rd green party telecommunication application (e.g. [employer]) is not HIPAA compliant and may carry some privacy risks: Yes This visit was conducted isbs-xj-huhj with the use of audio and video technology using Pedius between patient and the provider for a virtual visit. Verbal consent to provide and bill this service was obtained on: 12/12/22 No signature was obtained due to the COVID-19 pandemic. SUBJECTIVE CC: Chief Complaint Patient presents with Therapy HPI: Mary Leal is a 52 y.o. female presenting to the [facility] on 12/12/22 for management of [...] (ISP): Provider: Carmen Dorsey M.A. (clinical psychology butter maker) Frequency: 1-4 weeks Patient Needs: eleviate anxiety, [...] of water, on an (more content not included)...[facility]02-06-2023 Miscellaneous Notes* Telephone Encounter - See [...] and follow up testing return call to [phone] documented in this encounterMedina Hospital02-03-2023 NoteDepartment of Psychiatry Outpatient Progress Note Time In: 3 PM Time Out: 3:30 PM Present At Visit: Patient Clinician Location: Clinician in office Patient Location: In office Subjective CC: Chief Complaint Patient presents with Telehealth Audio/video Visit [email or web address] HPI: Mary Leal is a 52 y.o. female presenting to the [facility] on 12/09/21. ' Between visits [...] teratogenicity, and medication (more content not included)... [facility]02-03-2023 Miscellaneous Notes* Telephone Encounter - MALAIKA Rosales [...] patient Summary: As noted Concerns: Procedure results Journal Clerk plan for next outreach: Will follow up Signature Nelsy Pepe RN December 08, 2022 documented in this encounterMedina Hospital01-30-2023 Nurse Note* Lisa Contreras RN - 12/05/2022 1:05 PM EST [facility] ENDOSCOPY PRE PROCEDURE CALL Akiko. I'm calling from [facility] endoscopy to provide you with the information for your surgery/procedure tomorrow. 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 tbd What is the best number for your route relief driver to be reached at tomorrow for updates? tbd Your route relief driver is allowed to wait here with [...] Do not wear makeup, lotion, or finger british. yes Patient instructed: Please bring a list [...] given Any barriers to Patient learning (confusion? 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 If patient needs to reschedule please call: [phone] [facility] phone number: [phone] Type of instruction given: Verbal by telephone contact. documented in this encounterMedina Hospital01-27-2023 Nurse Note* Isra Harman RN - 12/02/2022 10:48 AM EST [facility] ENDOSCOPY PRE PROCEDURE CALL Akiko. I'm calling from [facility] endoscopy to provide you with the information for your surgery/procedure tomorrow. Spoke to: Patient CONFIRM Procedure Planned with patient: Are you familiar with where [facility] is located?yes Address [facility] Patient instructed to enter through the main hospital entrance off [address] at [address] through the revolving doors and check in at the main desk with your route relief driver's license and insurance card.yes When anesthesia or sedation is being given: Patient instructed you must have an adult route relief driver because you will not be able to work or drive for the rest of the day after your test.yes Can you please confirm the name and relationship of your route relief driver. Rich What is the best number for your route relief driver to be reached at tomorrow for updates? 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 yes Patient instructed: Please bring a list [...] given Any barriers to Patient learning (confusion? 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 If patient needs to reschedule please call: [phone] [facility] phone number: [phone] Type of instruction given: Verbal by telephone contact. documented in this encounterMedina Hospital01-26-2023 NotePROCEDURE: XR FOOT RT MIN 3 [...] Electronically authenticated by: ZAIDA ACOSTA Date: 2022-12-01 11:42[facility]01-26-2023 NotePROCEDURE: XR FOOT RT MIN 3 [...] Electronically authenticated by: ZAIDA ACOSTA Date: 2022-12-01 11:42[facility]01-25-2023 NoteHNO ID: [id number] Author: Isra Masters, DO Service: ? Author [...] in the AM and 4 mg PM mpqlskukkuv-xkwzblias-ujedjtlb (TRELEGY ELLIPTA) 100-62.5-25 mcg Inhale 1 Puff [...] no edema RESPIRATORY: No dyspnea : neg RN EMBEDDED: neg The remainder of the review of [...] K59.04 SIGMOIDOSCOPY 2. Nausea R11.0 Isra MastersDO 11/30/2022[facility]01-25-2023 History of Present illness Narrative* Isra Masters, - 11/30/2022 1:35 PM EST FOLLOW UP [...] in the AM and 4 mg PM nylmhmbyuhw-helociphh-kzyvxetm (TRELEGY ELLIPTA) 100-62.5-25 mcg Inhale 1 Puff [...] no edema RESPIRATORY: No dyspnea : neg RN EMBEDDED: neg The remainder of the review of [...] Isra Masters DO 11/30/2022 documented in this encounterMedina Hospital01-25-2023 NotePsychiatry Psychotherapy Progress Note Time In: 8:30 AM Time Out: 9:13 AM Present At Visit: Patient Clinician Location: Clinician via telehealth Patient Location: Via telehealth in [place] Telehealth Information Telehealth Mode: Webex (video + audio) The patient was notified that using 3rd green party telecommunication application is not HIPAA compliant and may carry some privacy risks: Yes Video Consent Date of Telehealth Visit: 11/30/22 The patient was notified that using 3rd green party telecommunication application (e.g. [employer]) is not HIPAA compliant and may carry some privacy risks: Yes This visit was conducted rvkz-et-fppz with the use of audio and video technology using Pedius between patient and the provider for a virtual visit. Verbal consent to provide and bill this service was obtained on: 11/30/22 No signature was obtained due to the COVID-19 pandemic. SUBJECTIVE CC: Chief Complaint Patient presents with Therapy HPI: Mary Leal is a 52 y.o. female presenting to the [facility] Psychiatry Clinic on 11/30/22 for management of [...] every 28 (twenty-eight) d (more content not included)...[facility]01-19-2023 Miscellaneous Notes* Telephone Encounter - Uziel Serrano RN - 11/24/2022 3:20 PM EST This concern was addressed in the phone encounter on 11/24/22. Patient was called back and informed [employer] will complete Prior Authorization for her sleep study. documented in this encounterMedina Hospital01-19-2023 Miscellaneous Notes* Telephone Encounter - Uziel [...] Relationship to patient : Self In-state or hbo-qy-zcdgr patient: In-State Was permission obtained from patient? Yes Patient identified by Name and Date of . ( Mary Leal, 1970). Yes Reason for Call : Patient stated she spoke to her insurance and they told her that the provider need to call Deuce to see if a PA is needed for the PAP Titration. Number to return call [phone] Okay to leave a message ? Yes Last office visit 10/14/[address] Tuttle virtual Next office visit None documented in this encounterMedina Hospital01-19-2023 NoteHNO ID: [id number] Author: Isra Masters DO Service: ? Author Type: Physician Type: Progress Notes Filed: 11/24/2022 8:30 AM Note Text: SmartPill Test Report - [id number] Test start date: 11/17/2022 10:[address] Abstractor: josephine Interpretation date: 11/24/2022 Ordering physician: Isra Masters DO Referring physician: Patient Information Name: ElvisMary ID: [id number] date: 1970 Height ft. in.: 5' 4 [...] Normal gastric transit Normal small bowel transit [id number] transit in the distal bowel consistent delay post anastomosis Signature _Dr. Masters Date _11/24/2022 [facility]01-19-2023 History of Present illness Narrative* Isra Masters DO - 11/24/2022 8:29 AM EST Images from the original note were not included. [employer] Test Report - [id number] Test start date: 11/17/2022 10:[address] Abstractor: josephine Interpretation date: 11/24/2022 Ordering physician: Isra Masters DO Referring physician: Patient Information Name: Mary LealTommy ID: [id number] date: 1970 Height ft. in.: 5' 4 [...] Normal gastric transit Normal small bowel transit [id number] transit in the distal bowel consistent delay post anastomosis Signature _Dr. Masters Date _11/24/2022 documented in this encounterMedina Hospital01-18-2023 NotePsychiatry Psychotherapy Progress Note Time In: 8:30 AM Time Out: 9:23 AM Present At Visit: Patient Clinician Location: Clinician in office Patient Location: Via telehealth in [place] Telehealth Information Telehealth Mode: Webex (video + audio) The patient was notified that using 3rd green party telecommunication application is not HIPAA compliant and may carry some privacy risks: Yes Video Consent Date of Telehealth Visit: 11/23/22 The patient was notified that using 3rd green party telecommunication application (e.g. [employer]) is not HIPAA compliant and may carry some privacy risks: Yes This visit was conducted flpv-jk-rdrr with the use of audio and video technology using Backflip [employer] between patient and the provider for a virtual visit. Verbal consent to provide and bill this service was obtained on: 11/23/22 No signature was obtained due to the COVID-19 pandemic. SUBJECTIVE CC: Chief Complaint Patient presents with Therapy Telehealth Audio/video Visit WebEx HPI: Mary Leal is a 52 y.o. female presenting to the [facility] Psych[facility]ry Clinic on 11/23/22 for management of [...] Disp: , Rfl: l (more content not included)...[facility]01-17-2023 NoteHNO ID: [id number] Author: Lilli Goldberg Service: ? Author Type: ? Type: Progress Notes Filed: 11/22/2022 3:34 PM Note Text: Patient calling to verify that monitor was received at A30. Monitor was sent via Fed Ex on 11/19/22. Patient is requesting a confirmation.[facility]01-17-2023 Miscellaneous Notes* Telephone Encounter - Lilli Goldberg - 11/22/2022 3:37 PM EST Patient calling to verify that Smart Pill monitor was received at A30. Monitor was sent via Fed Ex on 11/19/22. Patient is requesting a confirmation. documented in this encounterMedina Hospital01-16-2023 Miscellaneous Notes* Telephone Encounter - Uziel Serrano RN - 11/21/2022 9:11 AM EST Spiffy Societyt message sent to patient. Prior Sleep study forwarded to MD to review, Order pended for PAP-titration for provider to review and sign if necessary. documented in this encounterMedina Hospital01-16-2023 History and physical note * Yodit Back PA-C - 11/21/2022 8:00 AM EST PREANESTHESIA CONSULT CLINIC TELEHEALTH VISIT Patient has been identified by name and date of : Yes This is a virtual visit using Spiffy Societyt video visit. It require patient-provider interaction for [...] in the AM and 4 mg PM ipwarlslpqg-wfwlsemjc-pnekfena (TRELEGY ELLIPTA) 100-62.5-25 mcg Inhale 1 Puff as instructed once daily. No current facility-administered medications for this visit. COVID VACCINATION STATUS: Fully vaccinated REVIEW OF SYSTEMS: Pain Assessment: General: No weight loss, malaise or fevers. Neuro: No history of TIA's, stroke, END STAPLER tumor, impaired sensorium, hemiplegia, paraplegia or quadraplegia. [...] requiring medication, no history of angina, CHF, [place], cardiac surgery or stents. Denies rest pain, gangrene or revascularization/amputation for PVD. No history of cardiovascular symptoms or problems. + HLD GI: See HPI : No history of dysuria, frequency or incontinence,, stones or chronic kidney disease RN EMBEDDED: Negative for abnormal vaginal bleeding, abnormal vaginal [...] 8:07 AM PAGER/CONTACT #: documented in this encounterMedina Hospital01-13-2023 NoteDepartment of Psychiatry Outpatient Progress Note Time In: 3 PM Time Out: 3:30 PM Present At Visit: Patient Clinician Location: Clinician in office Patient Location: In office Subjective CC: Chief Complaint Patient presents with Telehealth Audio/video Visit [email or web address] HPI: Mary Leal is a 52 y.o. female presenting to the [facility] Psychiatry Clinic on 11/04/2022 for management of [...] D-3) 50 MCG (1999) tablet oral, Daily cloNIDine (CATAPRES) 0.1 mg, [...] her previous provider prior to coming to [facility]. Primarily, she (more content not included)...[facility]01-12-2023 NoteHNO ID: [id number] Author: Berta Ann RN Service: ? Author Type: Registered Nurse Type: Progress Notes Filed: 11/17/2022 7:06 PM Note Text: Procedure pended for 12-07-22. Pre-op instructions reviewed with pt. Pt aware of need for PACC. Post op appt scheduled. Direct number provided for future reference. No other questions at this time. Berta HENSON, RN Specialty Care CoordinatorEast [facility]01-[facility]-2023 NoteHNO ID: [id number] Author: Winston Hannah, Service: ? Author Type: Physician Type: Progress Notes Filed: 11/17/2022 7:06 PM Note Text: [facility] [place] Gastroparesis/Dysmotility Consultation SERVICE DATE: 11/17/2022 SERVICE TIME: 2:16 PM PRIMARY CARE PHYSICIAN: DO Isra Mauricio [facility] [address] [place] [address] My final recommendations will be communicated back [...] surgical therapy for gastroparesis in detail. Mary Ludmila Elvis is candidate for upper endoscopy with [...] was obtained. NAME: Mary Leal CLINIC NO: [id number] DATE OF SERVICE: November 17, 2022 This [...] and some bloating. Duration of symptoms (months): 5735-5936 Weight changes in last 3 months: Steady [...] 16.56 Motility index: 1 (more content not included)...[facility] 11-17-2022 Miscellaneous Notes* Addendum Note - [...] - 11/02/2022 12:33 PM EST Received from [facility] Report via fax. 8 pages indexed to chart. documented in this encounterMedina Hospital01-12-2023 NoteHNO ID: [id number] Author: Annmarie Gillespie RN Service: ? Author [...] complete. You will be wearing a Data Medical Research Assistant around your neck like a necklace during the test. You must keep this near you at all times. The Data Medical Research Assistant has an EVENT button. You will be [...] is inside your body. Return the Data Medical Research Assistant to the [facility] after your test is completed. Brittanie Gillespie RNEast [facility] City Hospital01-12-2023 History of Present illness Narrative* Annmarie [...] complete. You will be wearing a Data Medical Research Assistant around your neck like a necklace during the test. You must keepthis near you at all times. The Data Medical Research Assistant has an EVENT button. You will be [...] is inside your body. Return the Data Medical Research Assistant to the [facility] after your test is completed. Brittanie Gillespie RN documented in this encounterMedina Hospital01-11-2023 NotePsychiatry Psychotherapy Progress Note Time In: 8:30 AM Time Out: 9:23 AM Present At Visit: Patient Clinician Location: Clinician in office Patient Location: Via telehealth in [place] Telehealth Information Telehealth Mode: Webex (video + audio) The patient was notified that using 3rd green party telecommunication application is not HIPAA compliant and may carry some privacy risks: Yes Video Consent Date of Telehealth Visit: 11/16/22 The patient was notified that using 3rd green party telecommunication application (e.g. [employer]) is not HIPAA compliant and may carry some privacy risks: Yes This visit was conducted ldbw-lj-qsec with the use of audio and video technology using Pedius between patient and the provider for a virtual visit. Verbal consent to provide and bill this service was obtained on: 11/16/22 No signature was obtained due to the COVID-19 pandemic. SUBJECTIVE CC: Chief Complaint Patient presents with Therapy Telehealth Audio/video Visit WebEx HPI: Mary Leal is a 52 y.o. female presenting to the [facility] Psych[facility] Clinic on 11/16/22 for management of [...] stomach pain. She reported she goes to [place] [facility] tomorrow for testing. Pt appeared visibly fatigued [...] skin every 12 (tw (more content not included)...[facility]01-09-2023 NotePROCEDURE: XR FOOT RT MIN 3 [...] Electronically authenticated by: ZAIDA ACOSTA Date: 2022-11-14 10:39[facility]01-05-2023 NotePROCEDURE: XR FOOT RT MIN 3 VIEWS [...] Electronically authenticated by: NICKI DACOSTA Date: 2022-11-10 11:44[facility]01-05-2023 Miscellaneous Notes* Telephone Encounter - Annmarie Gillespie RN - 11/10/2022 9:07 AM EST Telephoned patient with [facility] procedure appointment reminder/instructions. Brittanie Gillespie RN documented in this encounterMedina Hospital01-04-2023 Miscellaneous Notes* Telephone Encounter - Lilli [...] Smart Pill department to expedite scheduling for available. Please advise if appointment with general [...] to make it legit. documented in this encounterMedina Hospital01-04-2023 Miscellaneous Notes* Telephone Encounter - Mick Doll - 11/09/2022 9:47 AM EST SENT PATIENTS RX TO PREFERRED LOCATION [facility] [phone] Mick Doll TELEVISION ANTENNA INSTALLER documented in this encounterMedina Hospital01-03-2023 Miscellaneous Notes* Telephone Encounter - Lilli Goldberg - 11/08/2022 11:15 AM EST Per Soumya in provider services at [facility]. No prior auth is needed,coverage is active, patient can proceed with Smart Pill. Placed a new referral. Call Ref # [id number] * Telephone Encounter - Lilli Goldberg - 11/02/2022 3:51 PM EST Spoke with patient. Smart Pill is a covered benefit. Sent email to Smart Pill allergist immunologist and [facility] to assist in scheduling Smart Pill [...] procedure, she can call Earlene Martin at [phone]. documented in this encounterMedina Hospital12-30-2022 [id number] Mary Leal 1970 F Date Provider Department Center 11/04/2022 [facility] PS[facility] Gerardo Heal No family history on file Level of Service:20147 OR OFFICE/OUTPATIENT ESTABLISHED [facility] 40-54 MIN Reason for Visit and Comments: Med Management [[id number]][facility]12-30-2022 Note Department of Psychiatry Outpatient Progress Note Time In: 2 PM Time Out: 3 PM Present At Visit: Patient and Spouse Clinician Location: Clinician in office Patient Location: In office Subjective CC: Chief Complaint Patient presents with Med Management HPI: Mary Leal is a 52 y.o. female presenting to the [facility] Psychiatry Clinic on 11/04/2022 for management of [...] her previous provider prior to coming to [facility]. Primarily, she struggles with task switching, rumination, and lack of emotional regulation at this time. We discussed the risks, benefits, side effects, and alternatives to Vyvanse including insomnia, irritability, increased blood pressure, and appetite suppression, and she voiced understanding and agreement. Start clonidine 0.1 mg at nighttime for sleep (more content not included)... [facility]12-19-2022 Miscellaneous Notes* Telephone Encounter - Ban [...] calling: self Call patient at: at home [phone] (home) [phone] (cell) Closing statement: Symptom Call: Thank you for calling [facility], your call is very important. A nurse will call in approximately 2-4 hours during business hours. If this is an emergency, please contact 911. Nati Hernandez documented in this encounterMedina Hospital12-13-2022 Miscellaneous Notes* Telephone Encounter - Brooklyn Valle LPN - 10/18/2022 2:43 PM EST Requested Prescriptions Pending Prescriptions Disp Refills Dexlansoprazole 60 mg CpDM [Pharmacy Med Name: DEXLANSOPRAZOLE DR 60 MG CAP] 30 capsule 5 Sig: take 1 capsule by mouth before breakfast Patient last seen 10/11/2022 documented in this encounterMedina Hospital12-12-2022 NotePROCEDURE: XR FOOT RT MIN 3 [...] Electronically authenticated by: NICKI DACOSTA Date: 2022-10-17 18:06[facility]12-12-2022 NotePROCEDURE: XR FOOT RT MIN 3 [...] Electronically authenticated by: NICKI DACOSTA Date: 2022-10-17 18:06[facility]12-12-2022 Miscellaneous Notes* Telephone Encounter - Mick Doll - 10/17/2022 9:17 AM EST Faxed order, office notes, demographics, and sleep study to: DME name: [facility] fax: [phone] DME ph: ALSO SENT A REQUEST FOR PTS PSG FROM [employer] [facility] [place] documented in this encounterMedina Hospital12-09-2022 NoteHNO ID: [id number] Author: Yoni Tuttle MD Service: ? Author Type: Physician Type: Progress Notes Filed: 10/14/2022 5:04 PM Note Text: [facility] New Patient Evaluation [...] parasomnia Tried CBTi - Dr. Linda at [facility] - 6 mo She reports having an [...] or near accidents due to drowsy drivin Stella Sleepiness Scale 10/07/2022 Score 13 (present daytime [...] cervical neck surgery PAST (more content not included)...[facility]12-06-2022 History of Present illness Narrative* Isra Masters DO - 10/11/2022 10:28 AM EST FOLLOW [...] (FLONASE) 50 mcg/actuation nasal spray Use 1 Dougherty in each nostril once daily. carBAMazepine XR (TEGRETOL XR) 400 mg 12 hr tablet Take 400 mg by mouth q 12 HR. ARIPiprazole (ABILIFY) 30 mg tablet Take 30 mg by mouth once daily. albuterol HFA (PROVENTIL HFA, VENTOLIN HFA) 90 mcg/actuation inhaler inhale 2 puffs by mouth INTO THE LUNGS every 4 hours if needed ljzwlxskzqb-nzbyfxcri-krlqeygn (TRELEGY ELLIPTA) 100-62.5-25 mcg Inhale 1 Puff [...] no edema RESPIRATORY: No dyspnea : neg RN EMBEDDED: neg The remainder of the review of [...] Isra Masters DO 10/11/2022 documented in this encounterMedina Hospital12-05-2022 Evaluation note* Encounter Date Diagnosis Assessment [...] for rotator cuff healing or recurrent tear [employer] Other 12-01-2022 Evaluation note* Encounter Date Diagnosis [...] note writ ten by Wanda Yang LPN, Biotechnician. Edited and approved by Dr. Annette Harris MD. [place] [employer] Other 11-17-2022 Evaluation note* Encounter Date Diagnosis [...] educated regarding the risks and benefits of long-term opioid use. She understands the associated risks [...] note writ ten by Lupillo Amezquita MA, Biotechnician. Edited and approved by Dr. Annette Harris MD. [employer] Other 11-17-2022 Evaluation note* Encounter Date Diagnosis Assessment Notes Treatment Notes Treatment Clinical Notes Sep, Lumbosacral spondylosis without myelopathy (ICD-10 - M47.817) [employer] Other 11-09-2022 Evaluation note* Encounter Date Diagnosis [...] note writ ten by Wanda Yang LPN, Biotechnician. Edited and approved by Dr. Annette Harris MD. [employer] Other 09-21-2022 NotePROCEDURE: XR ANKLE RT MIN 3 VIEWS, XR FOOT RT MIN 3 VIEWS COMPARISON: 01/06/2021 HISTORY: Pain of right ankle joint FINDINGS: BONES:Remote osteotomy head of the first metatarsal fixed with a single screw. No acute fracture or dislocation. SOFT TISSUES:Negative. No visible soft tissue swelling. EFFUSION:None visible. OTHER: Negative. IMPRESSION: No acute abnormality Electronically authenticated by: NICKI DACOSTA Date: 2022-07-27 19:[address] [place], [place] [address]09-21-2022 NotePROCEDURE: XR ANKLE RT MIN 3 VIEWS, XR FOOT RT MIN 3 VIEWS COMPARISON: 01/06/2021 HISTORY: Pain of right ankle joint FINDINGS: BONES:Remote osteotomy head of the first metatarsal fixed with a single screw. No acute fracture or dislocation. SOFT TISSUES:Negative. No visible soft tissue swelling. EFFUSION:None visible. OTHER: Negative. IMPRESSION: No acute abnormality Electronically authenticated by: NICKI DACOSTA Date: 2022-07-27 19:[address] [place], [place] [address]2509-20-2022 Miscellaneous Notes* Telephone Encounter - Silvia Ybarra - 07/26/2022 2:56 PM EDT PA for Dexlansoprazole initiated electronically. Awaiting response [employer] ID# [id number] * Telephone Encounter - Tracy Khan PSS - 07/26/2022 1:43 PM EDT Patient needs a prior authorization Medication Order name: Dexlansoprazole 60 mg CpDM Medication: DEXLANSOPRAZOLE 60 MG CAPSULE,BIPHASE DELAYED RELEASE [[id number]] Dispense as Written: No documented in this encounterMedina Hospital09-20-2022 History of Present illness Narrative* Mary [...] in the AM and 4 mg PM ytjazdckcev-gvkgpcmwf-tfhxqlxe (TRELEGY ELLIPTA) 100-62.5-25 mcg Inhale 1 Puff [...] (FLONASE) 50 mcg/actuation nasal spray Use 1 Dougherty in each nostril once daily. carBAMazepine XR [...] deep palpation Assessment Assessment and Plan: Mary D Elvis is a 52 year old female with [...] which included preparing to see the patient, lbvs-ip-dfbp patient care, completing clinical documentation, obtaining and/or reviewing separately obtained history, performing a medically appropriate examination, counseling and educating the pat ient/family/caregiver, ordering medications, tests, or procedures, and care coordination (not separately reported). Mary Obrien MD Colorectal Surgery documented in this encounterMedina Hospital09-20-2022 Nurse Note* Re Sierra MA - 07/26/2022 11:12 AM EDT What is the reason for your visit today? Established patient presents for post op. Who is your referring physician? Are you having poor oral intake? NO Have you had unintentional weight loss of 15 lbs/7 Kg in the last 3-6 months? NO Bowels: Wound: none Temperature: No Drains: No documented in this encounterMedina Hospital08-04-2022 NotePROCEDURE: In the coronal projection, without [...] and signed by Quinton Carson on 06/09/2022 111[address] [id number] Miscellaneous Notes* Telephone Encounter - Raquel Mullen - 06/07/2022 3:34 PM EDT Patient needs RX sent to [facility] in [facility]. The previous was sent to pharmacy which [...] process accordingly. Raquel Mullen documented in this encounterMedina Hospital07-21-2022 Evaluation note* Encounter Date Diagnosis Assessment [...] note writ ten by Lupillo Amezquita MA, Biotechnician. Edited and approved by Dr. Annette Harris MD. [employer] Other 07-05-2022 Evaluation note* Encounter Date Diagnosis [...] [facility] Care At Home document. [employer] Other 06-28-2022 Miscellaneous Notes* Telephone Encounter - [...] concerns at this time. documented in this encounterMedina Hospital06-21-2022 Miscellaneous Notes* Telephone Encounter - See [...] procedure on 03/28. Thanks! documented in this encounterMedina Hospital06-17-2022 History of Present illness Narrative* Jessi [...] (FLONASE) 50 mcg/actuation nasal spray Use 1 Dougherty in each nostril once daily. carBAMazepine XR [...] THE LUNGS every 4 hours if needed cslnuewdcjc-mmtimftmr-ibtrzaaq (TRELEGY ELLIPTA) 100-62.5-25 mcg Inhale 1 Puff [...] complications of treatment plan: low Jessi Sheets APRN.[facility] Colorectal Surgery documented in this encounterMedina Hospital06-17-2022 Nurse Note* Mary Mena MA - 04/22/2022 12:06 PM EDT .What is the reason for your visit today? Post op Who is your referring physician? Self Are you having poor oral intake? NO Have you had unintentional weight loss of 15 lbs/7 Kg in the last 3-6 months? NO Bowels: regular Wound: none Temperature: No Drains: No documented in this encounterMedina Hospital06-02-2022 Miscellaneous Notes* Telephone Encounter - Rachael - 04/07/2022 12:35 AM EDT Record ID: [id number] Patient name: Mary Leal Date: [birth year], [...] likely is it that you would recommend [facility] to a friend or family member? -> likely Please tell me what you liked best about your hospital experience: -> The nurses documented in this encounterMedina Hospital05-31-2022 NoteHNO ID: [id number] Author: Pravin Ladd MD Service: Colorectal Author Type: Resident Type: Progress Notes Filed: 04/05/2022 7:52 AM Note Text: COLORECTAL SURGERY PROGRESS NOTE Mary Leal [id number] ASSESSMENT AND PLAN Mary Leal is a [...] - General Pravin Ladd MD General Surgery residentPappas Rehabilitation Hospital For [id number] NoteHNO ID: [id number] Author: Nita Lamas MD Service: Colorectal Author Type: Fellow Type: Progress Notes Filed: 04/04/2022 9:40 AM Note Text: COLORECTAL SURGERY PROGRESS NOTE Mary Leal [id number] ASSESSMENT AND PLAN Mary Leal is a [...] Nita Lamas MD Colorectal Fellow 04/04/2022 9:40 [facility]05-29-2022 NoteHNO ID: [id number] Author: Pravin Ladd MD Service: Colorectal Author Type: Resident Type: Progress Notes Filed: 04/03/2022 8:03 AM Note Text: COLORECTAL SURGERY PROGRESS NOTE Mary Leal [id number] ASSESSMENT AND PLAN Mary Leal is a [...] - General Pravin Ladd MD General Surgery ResidentPappas Rehabilitation Hospital For [id number] NoteHNO ID: [id number] Author: Nancy Cadena MD Service: Colorectal Author Type: Resident Type: Progress Notes Filed: 04/02/2022 8:34 AM Note Text: COLORECTAL SURGERY PROGRESS NOTE Mary Leal [id number] ASSESSMENT AND PLAN Mary Leal is a [...] Nancy Cadena MD General Surgery Resident, PGY-2 [id number] NoteHNO ID: [id number] Author: Nancy Cadena MD Service: Colorectal Author [...] 01, 2022 COLORECTAL SURGERY PROGRESS NOTE Mary D Elvis [id number] ASSESSMENT AND PLAN Maryjose Leal is a [...] Nancy Cadena MD General Surgery Resident, PGY-2 [id number] NoteHNO ID: [id number] Author: Yolanda Lamb MD Service: Colorectal Author Type: Resident Type: Progress Notes Filed: 03/31/2022 9:08 AM Note Text: COLORECTAL SURGERY PROGRESS NOTE Mary Leal [id number] ASSESSMENT AND PLAN Mary Leal is a [...] RESECTION AND ANASTOMOSIS - General Yolanda Lamb MDPappas Rehabilitation Hospital For [id number] NoteHNO ID: [id number] Author: Pravin Ladd MD Service: Colorectal Author Type: Resident Type: Progress Notes Filed: 03/30/2022 9:02 AM Note Text: Attestation signed by Mary Obrien MD at 03/30/2022 4:01 PM [facility] STAFF PHYSICIAN NOTE OF PERSONAL INVOLVEMENT IN [...] 2022 COLORECTAL SURGERY PROGRESS NOTE Mary Leal [id number] ASSESSMENT AND PLAN Mary Ludmila Leal is a 51 year old female with PMHx Asthma, HTN, BPD, Dyslipidemia and colonic inertia who is now s/p Hand assisted TAC, EI takedown + OANH 03/28 - D/C HEARTH FEEDER - Advance to GI soft diet - [...] RESECTION AND ANASTOMOSIS - General Pravin Ladd MDP[facility] For [id number] NoteHNO ID: [id number] Author: ELIZABETH Dias Service: Care Management Author Type: Brick Tester Type: Care Mgt Initial Assessment Filed: 03/29/2022 [...] time ADVANCE DIRECTIVES Current Advance Directive: None Pattern Changer Attempted to Assist with AD Completion: Yes [...] Housing Stability: Not on file PATIENT SCREEN Patient/Customer Data Technician Stated Goals: To be cured/healed Under the [...] March 29, 2022 TIME: 3:45 PM PHONE: [phone] [id number] NoteHNO ID: [id number] Author: Pravin Ladd MD Service: Colorectal Author Type: Resident Type: Progress Notes Filed: 04/01/2022 5:50 AM Note Text: COLORECTAL SURGERY PROGRESS NOTE Mary Leal [id number] ASSESSMENT AND PLAN Mary Leal is a 51 year old female with PMHx Asthma, HTN, BPD, Dyslipidemia and colonic inertia who is now s/p Hand assisted TAC, EI takedown + OANH 03/28 - HEARTH FEEDER for pain control - Magnesium replacement for [...] RESECTION AND ANASTOMOSIS - General Pravin Ladd MDPapp[facility] For ChildrenXshnucuv12-36-2532 NoteHNO ID: [id number] Author: Nathanael Craig DO Service: Anesthesiology Author Type: Anesthesiologist Type: Anesthesia Procedure Notes Filed: 03/28/2022 4:16 PM Note Text: ANESTHESIOLOGY PROCEDURE NOTE Peripheral Nerve Block General Information Procedure Start Time/Medication Administration: 03/28/2022 3:50 PM Procedure End time: 03/28/2022 3:55 PM Patient location during procedure: OR Timeout Performed Pre-procedure: timeout performed Consent Obtained: Yes 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: care merchandise flow team leader and arm band Reason for block: post-op [...] 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 and care merchandise flow team leader Reason for block: post-op pain management/at surgeon's request Staffing Anesthesiologist: DO Nate Samuel Sterility Preparation: hand hygiene performed prior to [...] March 28, 2022 TIME: 4:14 PM CSN: [id number] NoteHNO ID: [id number] Author: Carmen Stanley APRN.HYDRAULIC CHAIR ASSEMBLER Service: Anesthesiology Author Type: Nurse Consulting Intern Type: Anesthesia Procedure Notes Filed: 03/28/2022 9:49 AM Note Text: ANESTHESIOLOGY PROCEDURE NOTE Airway General Information Procedure Start Time/Medication Administration: 03/28/2022 9:21 AM Patient location during procedure: OR 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, care merchandise flow team leader and patient Staffing HYDRAULIC CHAIR ASSEMBLER: Carmen Stanley APRN.HYDRAULIC CHAIR ASSEMBLER Performed by: HYDRAULIC CHAIR ASSEMBLER Indications and Patient Condition Preoxygenated: yes Difficult [...] March 28, 2022 TIME: 9:49 AM CSN: [id number] NoteHNO ID: [id number] Author: Carmen Stanley APRN.CRNA Service: Anesthesiology Author Type: Nurse Consulting Intern Type: Anesthesia Procedure Notes Filed: 03/28/2022 9:49 [...] Imaging Guidance Used: No SIGNATURE: Carmen Stanley APRN.HYDRAULIC CHAIR ASSEMBLER PATIENT NAME: Mary Leal DATE: March 28, 2022 TIME: 9:48 AM CSN: [id number] Miscellaneous Notes* Telephone Encounter - See Wong [...] colon. Would like a call back at [phone] documented in this encounterMed[facility]22 Miscellaneous Notes* Telephone Encounter - Jennie Moreno RN - 03/15/2022 2:39 PM EDT Outside medical record EGD H Pylori biopsy received by fax. Scanned into [facility] [employer] under scanned documents. Hard copy handed to Dr. Masters. Per Dr Masters- please call patient and let her know the H Pylori biopsy is negative. Called patient . Message relayed. No questions at this time. * Telephone Encounter - Karthikeyan Morrissey RN - 03/15/2022 2:21 PM EDT Called [employer] and I was transferred to medical records. Requesting a cover sheet with the request result be faxed to them at [phone]. H Pylori result request faxed with confirmation. * Telephone Encounter - Karthikeyan Morrissey RN - 03/15/2022 2:21 PM EDT Images from the original note were not included. DO Leo Mariano Dd Clinical Pool Please contact [facility] [phone] to see if the H pylori biopsy is back yet from her EGD there documented in this encounterMedina Hospital05-10-2022 Evaluation note* Encounter Date Diagnosis Assessment [...] note writ ten by Wanda Yang LPN, Biotechnician. Edited and approved by Dr. Annette Harris MD. [employer] Other 05-10-2022 Miscellaneous Notes* Telephone Encounter - Silvia Ybarra - 03/15/2022 1:24 PM EDT PA for Dexilant renewal initiated through [employer]. Awaiting response ID# [id number] Rx BIN [id number] Rx PCN MCAIDOH Rx Grp [id number] documented in this encounterMedina Hospital05-10-2022 Miscellaneous Notes* Telephone Encounter - See Wong RN - 03/15/2022 9:28 AM EDT She called the office with complaints of dark red blood in her ostomy bag for the last 2 weeks. Shewas down in [place] when it started. She had an EGD in [place] that showed gastritis. She followed up with [...] concerns at this time. documented in this encounterMedina Hospital05-10-2022 History of Present illness Narrative* Isra [...] seem be musculoskeletal in nature.EGD done in [facility] showed some gastritis and duodenitis. Current [...] (FLONASE) 50 mcg/actuation nasal spray Use 1 Dougherty in each nostril once daily. carBAMazepine XR [...] THE LUNGS every 4 hours if needed ypvhoriurph-dczhxirqs-yqjddpks (TRELEGY ELLIPTA) 100-62.5-25 mcg Inhale 1 Puff [...] no edema RESPIRATORY: No dyspnea : neg RN EMBEDDED: neg The remainder of the review of [...] Isra Masters DO 03/15/2022 documented in this encounterMedina Hospital05-09-2022 Instructions* Patient Instructions* Urmila Alexander APRN.LINING CLOSER - 03/14/2022 10:43 AM EDT PATIENT PREOPERATIVE INSTRUCTIONS Mary Obrien MD has scheduled you for your procedure at this surgery center: [facility]: [phone] --[phone] [address]. Please check in on the1st floor at [...] Procedures: - YOU MUST HAVE A RESPONSIBLE TOOLING SPECIALIST TAKE YOU HOME. A AGRICULTURE INSTRUCTOR OR MEDICAL UNDERWRITER CANNOT BE MADE A RESPONSIBLE TOOLING SPECIALIST. - We recommend that a responsible person [...] Advance Directive, please fax a copy to [phone] or email to for it to be [...] your chart that day. documented in this encounterMedina Hospital05-09-2022 History and physical note * Urmila Alexander APRN.CNP - 03/14/2022 10:30 AM EDT Images from the original note were not included. HISTORY AND PHYSICAL EXAMINATION SERVICE DATE: 03/14/2022 SERVICE TIME: 11:03 AM PRIMARY CARE PHYSICIAN: Eliceo Willams DO REASON FOR VISIT: Mary Leal is a 51 year old [...] Imm Admin: COVID-19 vaccine, age 12+ yr ([employer] - PURPLE TOP) CHIEF COMPLAINT: reverse ileostomy [...] fevers. Neurological: No history of TIA's, stroke, END STAPLER tumor, impaired sensorium, hemiplegia, paraplegia orquadraplegia. No [...] > 1 time per night or hematuria. RN EMBEDDED: Negative for abnormal vaginal bleeding, abnormal vaginal [...] every 4 hours if needed Taking Yes aslxexrqctb-bamhryudd-iducgure (TRELEGY ELLIPTA) 100-62.5-25 mcg Inhale 1 Puff [...] (FLONASE) 50 mcg/actuation nasal spray Use 1 Dougherty in each nostril once daily. No medication [...] or any previous visit (from the past 38679 hour(s)). EKG: Assessment HTN (hypertension) Assessment: Managed [...] of difficult airway No abnormal airway history [id number] Score: Age: <65 Sex: Female Hypertension history: [...] 10:30 AM PAGER/CONTACT #: documented in this encounterMedina Hospital04-25-2022 Miscellaneous Notes* Telephone Encounter - Isra [...] Monday, 03/02, at 0900 - routed to [employer] pool to make it legit. Please advise. documented in this encounterMedina Hospital04-15-2022 Instructions* Patient Instructions* Nelsy Chávez APRN.CNP - 02/18/2022 1:18 PM EDT Healing as expected from surgery. You have a pinpoint area of suture just under the vaginal epithelium surface that may need more time to fully heal. Please call the office if you would like to try vaginal estrogen cream or with any questions/concerns. documented in this encounterMedina Hospital04-15-2022 History of Present illness Narrative* Nelsy [...] no Pain: no Abnormal Vaginal Discharge: no RN EMBEDDED HISTORY: Last pap: cannot remember; Last mammogram: She has never had a mammogram LMP: No LMP recorded. Patient has had a hysterectomy.; Menopause n/a: Menstrual history: NA; Deliveries: I have confirmed and edited as necessary, the PFSH obtained by others. Nelsy Chávez APRN.CNP Material Manager offered: Patient declines. OBJECTIVE: There were no [...] if this helps. She is traveling to [place] to see her ailing father for two weeks and would like to wait for now to see if things resolve. She knows she can call the office if she changes her mind and would like to trial vaginal estrogen Nelsy Chávez APRN.KWESI documented in this encounterMedina Hospital04-08-2022 History of Present illness Narrative* Flaca Bartholomew, PT - 02/11/2022 10:42 AM EDT Episode Visit Count: 4 Therapist That Will Oversee The Plan Of Care: Shital then transfer to Flaca Bartholomew Start of [...] 15 Flaca Bartholomew PT documented in this encounterMedina Hospital04-05-2022 Nurse Note* Re Sierra MA - [...] Temperature: No Drains: No documented in this encounterMedina Hospital04-05-2022 History of Present illness Narrative* Mary [...] (FLONASE) 50 mcg/actuation nasal spray Use 1 Dougherty in each nostril once daily. carBAMazepine XR [...] THE LUNGS every 4 hours if needed sscctsxheqf-fqlchkanq-eiukiklt (TRELEGY ELLIPTA) 100-62.5-25 mcg Inhale 1 Puff [...] medical complications of surgery including DVT/PE, PNA, [place], stroke, and . The patient understands these risks and is in agreement with proceeding. Medical Decision Making: Data Reviewed: Tests & Documents Reviewed/ordered: Review of prior notes from myself, OR, Dr. Wang Review of prior operative reports I have discussed Mary Leal's treatment plan and/or results with the patient. Mary Obrien MD Colorectal Surgery documented in this encounterMedina Hospital04-05-2022 History of Present illness Narrative* Magali Mitchell APRN.LINING CLOSER - 02/08/2022 11:04 AM EDT Female Pelvic [...] you received about pain medications helpful? Yes Material Manager offered:Patient declines OBJECTIVE: BP 113/76 Pulse 74 [...] understanding. Magali Mitchell APRN.KWESI documented in this encounterMedina Hospital03-29-2022 Miscellaneous Notes* Telephone Encounter - Ban Benton LPN - 02/01/2022 11:08 AM EDT [facility] Pharmacy and Rx request verified. Please file if appropriate. Thank you Ban Benton LPN documented in this encounterMedina Hospital03-28-2022 NoteHNO ID: [id number] Author: Newton Woodward, DILLAN Service: ? Author Type: Physical Therapist Type: Progress Notes Filed: 01/31/2022 1:23 PM Note Text: Episode Visit Count: 3 Therapist That Will Oversee The Plan Of Care[facility] Care Date: 01/18/22 Onset Date: [...] Service Patient transferring care to: [facility] Flaca Ralphbeatriz SUBJECTIVE: Patient Reason for Visit: lack of [...] untimed codes) : 40 Newton Woodward PT, [facility]03-28-2022 History of Present illness Narrative* Newton Woodward, PT - 01/31/2022 10:42 AM EDT Episode Visit Count: 3 Therapist That Will Oversee The Plan Of Care: Shital then transfer to [facility] Start of Care Date: 01/18/22 Onset Date: 12/24/21 Plan of Care Certification Date: 01/18/22 Next Certification Due Date: 03/19/22 Patient Identified by Name and Date of : Yes [facility] PHYSICAL THERAPY TREATMENT NOTE ASSESSMENT: Mary Ludmila Leal tolerated the session with no issues. [...] to Home;Specialty Service Patient transferring care to: [facility] SUBJECTIVE: Patient Reason for Visit: lack of [...] Newton Woodward PT, DPT documented in this encounterMedina Hospital03-21-2022 NoteHNO ID: [id number] Author: Newton Woodward PT Service: ? Author Type: Physical Therapist Type: Progress Notes Filed: 01/24/2022 1:23 PM Note Text: Episode Visit Count: 2 Therapist That Will Oversee The Plan Of Care: [facility] then transfer to Flaca Bartholomew Start of [...] untimed codes) : 45 Newton Woodward PT, [facility]03-15-2022 NoteHNO ID: [id number] Author: Jessi Tovar PT Service: ? Author Type: Physical Therapist Type: Progress Notes Filed: 01/18/2022 1:56 PM Note Text: Episode Visit Count: 1 Therapist That Will Oversee The Plan Of Care: Shital then transfer to Flaca Bartholomew Start of [...] Planned: 8 Planned Treatment Interventions: Therapeutic exercise (16325);Neuromuscular re-education (47733);Manual therapy (54364);Therapeutic activities (34382);Self-snf management (43153);Patient/Family/Caregiver Education PLAN FOR NEXT VISIT: PFM dynamics; biofeedback Patient demonstrates good understanding of plan of care and treatment. The above goals and plan of care were discussed and agreed upon by patient/family. Transfer of Care Due To: Closer to Home (patient to transfer in February 2022) Patient transferring care to: [facility]- Flaca Bartholomew SUBJECTIVE: Mary Leal is a [...] function/quality of life. 52 (more content not included)...CentervilleDsihusre87-71-6227 NoteHNO ID: [id number] Author: Moni Munguia RN Service: Care Management Author Type: Registered Nurse Type: Care Mgt Progress Note Filed: 12/27/2021 4:17 PM Note Text: CARE MANAGEMENT DISCHARGE NOTE SERVICE DATE: 12/27/2021 SERVICE TIME: 4:14 PM LOS: 3 days Admission Date: 12/24/2021 DISCHARGE ARRANGEMENT (list agency and phone number) Discharge Arrangement: Home with Home Health Provider Name: Florentino 1Clori CAREGIVER ASSESSMENT: HANDOFF COMMUNICATION: Handoff to: Primary Care Physician Primary Care Physician Name/Phone: Eliceo Willams Jr [phone] TRANSPORTATION ARRANGEMENTS: Transportation Arrangements: N/A The Pt is accepted by [address] for new ostomy care. The SOC will be within 24 to 48 hrs. The pt will be contacted directly with the SOC. The Pt verbalized agreement with this dc plan. SIGNATURE: Moni Munguia RN PATIENT NAME: Mary Leal DATE: December 27, 2021 TIME: 4:14 PM PAGER/CONTACT #: [phone] [id number] NoteHNO ID: [id number] Author: Parish Celeste DO Service: Colorectal Author [...] - Pain and nausea control -> d/c HEARTH FEEDER - D/c entereg - Culturelle - Continue [...] 0659 12/27/21 0700 - 12/28/21 0659 Shift 0602-7504 3050-4442 0977-2629 24 Hour Total 9784-3828 2057-3870 7295-3125 24 Hour Total INTAKE PO 60 60 PO 60 60 IV 2100 2100 Volume (mL) (lactated ringers iv infusion) 2100 2100 Shift Total 2160 2160 OUTPUT Urine 9542 917 3123 2300 200 200 Void (ml) 300 1000 1300 200 200 Output ( Indwelling Urinary Catheter 12/24/21 Call 16 Fr) 1000 1000 Emesis 0 0 Emesis (ml) 0 0 Ostomy 250 125 375 Ileostomy 1 250 125 375 # of BMs Number of BMs 0 x 0 x Shift Total 2678 091 9137 2675 200 200 Weight (kg) 82.1 82.1 82.1 82.1 82.1 82.1 82.1 82.1 Recent Labs 12/26/21 0755 12/25/21 0606 WBC -- 5.96 HB -- 11.6 HCT -- 35.2* PLT -- 271 NA 139 141 K 4.0 4.0 CHLOR 102 104 CO2 28 28 CREAT 0.62* 0.72 BUN 10 12 GLUC 71 91 CA 8.5 8.5 Parish Celeste DO General Surgery, PGY-4 [phone] After 6 pm and on the weekends please page [phone] 12-26-2021 NoteHNO ID: [id number] Author: Jenifer Ayaal MD Service: Colorectal Author Type: Fellow Type: Progress Notes Filed: 12/26/2021 12:13 PM Note Text: GENERAL SURGERY PROGRESS NOTE Name: Mary Leal 12/26/2021 12:11 PM Interval Events: Patient doing well post-operatively. No acute events overnight. Tolerating CLD diet without nausea or vomiting. Stoma productive of bilious fluid + gas Pain well controlled with HEARTH FEEDER + oral pain medication (feels most relief from po oxycodone). Assessment and Plan: 51 year old female with pelvic organ prolapse and chronic constipation, likely slow transit but with possible component of pelvic outlet obstruction and with discordant testing. Patient underwent laparoscopic protopexy on 12/24/21 surgery was uneventful. Post-operative course has been uncompliacted. Pain control- Tylenol Gabapentin Toradol HEARTH FEEDER: Dilaudid, tegretol, klonopin, requip, trintellix, oxycodone Cardiac- [...] any questions or concerns page [facility] Blue [phone] Objective Physical exam: BP 117/66 Pulse 77 [...] 0659 12/26/21 07 - 12/27/21 0659 Shift 7806-1645 2875-3253 2763-7132 24 Hour Total 5503-5821 9812-4953 3977-7813 24 Hour Total INTAKE PO 60 60 PO 60 60 IV 213 668 881 Volume (mL) (lactated ringers iv infusion) 213 668 881 Shift Total 273 668 941 OUTPUT Urine 347 678 2993 1000 Void (ml) 0 0 Output ( Indwelling Urinary Catheter 12/24/21 Call 16 Fr) 380 257 7009 1000 Emesis 0 0 Emesis (ml) 0 0 Ostomy 100 100 Ileostomy 1 100 100 # of BMs Number of BMs 0 x 0 x Shift Total 635 420 3778 1000 Weight (kg) 82.1 82.1 82.1 82.1 [...] Diagnosis Date Noted - Pelvic floor dysfunction 12/24/2021[facility] ChildrenJowovizg22-51-7722 NoteHNO ID: [id number] Author: Sonido Owen MD Service: Colorectal Author [...] been uncompliacted. Pain control- Tylenol Gabapentin Toradol HEARTH FEEDER: Dilaudid, tegretol, klonopin, requip, trintellix Cardiac- Vitals: [...] Owen MD General Surgery PGY 2 Pg [phone] For any questions or concerns page [facility] Anish [phone] Objective Physical exam: BP 111/61 Pulse 86 Temp 37.1 ?C (98.7 ?F) (Axillary) Resp 18 Ht 162.6 cm (5' 4.02 ) Wt 82.1 kg (181 lb) SpO2 93% BMI 31.05 kg/m? General:Alert, Oriented x 3 and No acute distress Respiratory: Negative for SOB/ALLISON, cough or wheezing. on RA Abdomen: soft non-distended appropriately-tender, Incisions C/D/I, ostomy in place, pink viable Date 12/24/21699 - 12/25/21 0659 12/25/21 07 - 12/26/21 0659 Shift 2145-3960 0693-2173 3223-6619 24 Hour Total 3801-7612 2367-2475 9858-7013 24 Hour Total INTAKE PO 240 120 360 PO 240 120 360 IV 3100 3100 Volume (mL) (lactated ringers iv infusion) 1800 1800 Volume (mL) (lactated ringers iv infusion) 1300 1300 Shift Total 3100 686 788 3870 OUTPUT Urine 200 429 988 4464 OR Urine Output 200 200 Output ( Indwelling Urinary Catheter 12/24/21 Call 16 Fr) 300 500 800 Emesis 0 0 0 Emesis (ml) 0 0 0 Ostomy 0 0 0 Ileostomy 1 0 0 0 # of BMs Number of BMs 0 x 0 x 0 x Blood 50 50 Estimated Blood loss 50 50 Shift Total 250 648 773 3956 Weight (kg) 82.1 82.1 82.1 82.1 82.1 [...] Diagnosis Date Noted - Pelvic floor dysfunction 12/24/2021[facility] ChildrenSyopttte11-78-5386 NoteHNO ID: [id number] Author: Carmen Stanley APRN.HYDRAULIC CHAIR ASSEMBLER Service: Anesthesiology Author Type: Nurse Consulting Intern Type: Anesthesia Procedure Notes Filed: 12/24/2021 8:44 [...] December 24, 2021 TIME: 8:44 AM CSN: [id number] [id number] NoteHNO ID: [id number] Author: Carmen Stanley APRN.CRNA Service: Anesthesiology Author Type: Nurse Consulting Intern Type: Anesthesia Procedure Notes Filed: 12/24/2021 8:44 AM Note Text: ANESTHESIOLOGY PROCEDURE NOTE Airway General Information Procedure Start Time/Medication Administration: 12/24/2021 8:22 AM Patient location during procedure: OR 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, care merchandise flow team leader and patient Staffing Anesthesiologist: Chayito Ojeda MD HYDRAULIC CHAIR ASSEMBLER: Carmen Stanley APRN.HYDRAULIC CHAIR ASSEMBLER Performed by: HYDRAULIC CHAIR ASSEMBLER and anesthesiologist Indications and Patient Condition Preoxygenated: [...] December 24, 2021 TIME: 8:43 AM CSN: [id number] Evaluation note* Encounter Date Diagnosis Assessment Notes [...] note writ ten by Lupillo Amezquita MA, Biotechnician. Edited and approved by Dr. Annette Harris MD. [employer] Other 11-01-2021 Evaluation note* Encounter Date Diagnosis [...] note writ ten by Lupillo Amezquita MA, Biotechnician. Edited and approved by Dr. Annette Harirs MD. [employer] Other 10-14-2021 Evaluation note* Encounter Date Diagnosis [...] no improvement in 2 to 3 days. [employer] Other 10-08-2021 Evaluation note* Encounter Date Diagnosis [...] [facility] Care At Home document [employer] Other 10-07-2021 Evaluation note* Encounter Date Diagnosis [...] Aug, Other chronic pain (ICD-10 - G89.29) [employer] Other 09-22-2021 Evaluation note* Encounter Date Diagnosis [...] Jul, Other chronic pain (ICD-10 - G89.29) [employer] Other 03-01-2021 Note [id number]:127[facility] 01-04-2021 NoteCystoscopy with Botox injection ? Voiding [...] if you have a fever over 100 degrees.[facility] 11-11-2020 NoteChief Complaint Pt is here for [...] Contact Information Francie BENSON, Dawna Feldman [address] [place] [address]- [phone] Additional Instructions: F/u in 1yr. Patient Education [...] deficit disorder Bipolar disorder (more content not included)...[facility] Comment on above:Result Comment: Electronically Signed By: Francie BENSON, Dawna Feldman\.br\Date and Time Signed: 11/11/2111:16 EST\.br\Electronically Co-Signed By: Christy Gill MA\.br\Date and Time Co-Signed: 11/11/20 12:07 [id number]:127[facility] Narrative - Reported* MARY LEAL is being seen for an initial evaluation of. * 52-year-old female seen in cardiology consultation at the request of her primary care physician forelevated troponin while in [facility] this past spring that was associated with a GI bleed/gastritis. * Patient recently underwent large bowel resection details of which are unknown and I suspect possibly consistent with ulcerative colitis but again unknown pathology. She had a diverting colostomy with3 anastomosis performed. While in [place] with her GI bleed and primarily gastric [...] * I believe minor troponin elevation in [place] was simply at small type II non- [place] troponin elevationrelated to inflammation and gastritis and [...] colectomy. She can follow-up as needed otherwise. -[facility] DO Work Phone: Evaluation note* Diagnosis Pelvic floor dysfunction- Primary Pelvic muscle wasting Lack of coordination Follow-up examination after colorectal surgery Follow-up examination, following other surgery documented in this encounter [facility] note* Diagnosis Gastroesophageal reflux disease, unspecified whether esophagitis present documented in this encounter [facility] note* Diagnosis Follow-up examination after colorectal surgery- Primary Follow-up examination, following other surgery documented in this encounter [facility] note* Diagnosis Post-operative state- Primary Other postprocedural status Yeast infection of the skin Candidiasis of skin and nails documented in this encounter [facility] note* Diagnosis Pelvic floor dysfunction- Primary Pelvic muscle wasting Lack of coordination Follow-up examination after colorectal surgery Follow-up examination, following other surgery documented in this encounter [facility] note* Diagnosis Postoperative state- Primary Other postprocedural status Attention to ileostomy ([facility]) Attention to ileostomy documented in this encounter [facility] note* Diagnosis Preop examination- Primary Preoperative examination, [...] Attention to ileostomy documented in this encounter [facility] note* Diagnosis Gastroesophageal reflux disease, unspecified whether esophagitis present Chronic idiopathic constipation Unspecified constipation Attention to ileostomy (HCC) Attention to ileostomy documented in this encounter [facility] note* Diagnosis Follow-up examination after colorectal surgery- Primary Follow-up examination, following other surgery Pelvic floor dysfunction Pelvic muscle wasting documented in this encounter [facility] noteNo InformationNort [employer] Other Evaluation noteNort [employer] Other Evaluation note* Diagnosis Follow-up examination after colorectal surgery- Primary Follow-up examination, following other surgery Periumbilical abdominal pain Abdominal pain, periumbilic Outlet dysfunction constipation Colonic inertia Other functional disorders of intestine documented in this encounter [facility] noteNo assessment information available[facility] Work Phone: Evaluation note* Diagnosis Gas bloat syndrome- Primary Chronic idiopathic constipation Unspecified constipation Gastroparesis [facility] Diagnosis Gastroesophageal reflux disease, unspecified whether esophagitis present [facility] Diagnosis Gastroparesis- Primary documented in this encounter [facility] note* Diagnosis CHUCKIE (obstructive sleep apnea)- Primary Obstructive sleep apnea (adult) (pediatric) documented [facility]* Diagnosis Pre-op exam- Primary Preoperative examination, unspecified Primary hypertension Unspecified essential hypertension Mild persistent asthma without complication Unspecified asthma Gastroparesis CHUCKIE (obstructive sleep apnea) Obstructive sleep apnea (adult) (pediatric) documented [facility]* Diagnosis CHUCKIE (obstructive sleep apnea)- Primary Obstructive sleep apnea (adult) (pediatric) [facility] Diagnosis Chronic idiopathic constipation- Primary Unspecified constipation Nausea Nausea alone [facility] Diagnosis Gastroesophageal reflux disease with esophagitis without hemorrhage- Primary [facility] Diagnosis Colonic inertia- Primary Other functional disorders of intestine Pelvic floor dysfunction Pelvic muscle wasting Nausea Nausea alone Gastroparesis [facility] Diagnosis Pylorospasm- Primary Functional dyspepsia Dyspepsia and other specified disorders of function of stomach Gastroesophageal reflux disease with esophagitis without hemorrhage [facility] Diagnosis Gastroesophageal reflux disease, unspecified whether esophagitis present [facility]* Diagnosis CHUCKIE (obstructive sleep apnea)- Primary Obstructive sleep apnea (adult) (pediatric) [facility] Diagnosis Pylorospasm- Primary Functional dyspepsia Dyspepsia and other specified disorders of function of stomach Gastroesophageal reflux disease with esophagitis without hemorrhage [facility] Diagnosis Gastroparesis- Primary [facility] Diagnosis Preop examination- Primary Preoperative examination, unspecified Nausea Nausea alone CHUCKIE (obstructive sleep apnea) Obstructive sleep apnea (adult) (pediatric) Mild persistent asthma without complication Unspecified asthma Gastroesophageal reflux disease, unspecified whether esophagitis present Gastroparesis [facility] Diagnosis 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 Personal history of other diseases of digestive system [facility] Diagnosis Gastroesophageal reflux disease, unspecified whether esophagitis present [facility]* Diagnosis Incomplete bladder emptying- Primary Constipation, unspecified constipation type Urinary urgency Urgency of urination Urinary frequency Nocturia documented in this encounter [facility] note* Diagnosis Upper abdominal pain- Primary Abdominal pain, other specified site [facility] Diagnosis Burning with urination- Primary Dysuria documented in this encounter [facility] note* Diagnosis Ashley vaginitis Candidiasis of vulva and vagina documented in this encounter [facility] general Narrative - Reported* Type Description Date [...] see above list Hospitalization History respiratory 02/2020 [facility] Other [employer] general Narrative - ReportedNoNextworth Other [employer] general Narrative - Reported* Type Description Date [...] see above list Hospitalization History respiratory 02/2020 [facility] Other Reason for referral (narrative)* Outpatient Procedure (Routine) - Pending Review Specialty Diagnoses / Procedures Referred By Gustavo salazar Referred To Contact [facility] Diagnoses Gastroparesis Procedures CAPSULE ENDOSCOPY Isra Kitchen DO [facility] [address] [place] [address] [facility] [address] [address] Referral ID Status Reason Start Date Expiration Date Visits Requested Visits Authorized [id number] Pending Review Auto-Generat ed Referral 10/11/2022 10/11/2023 1 1 [facility] Outpatient Procedure (Routine) - Pending Review Specialty Diagnoses / Procedures Referred By Contac t Referred To Contact [facility] Diagnoses Chronic idiopathic constipation Procedures SIGMOIDOSCOPY SIGMOIDOSCOPY FLX DX W/COLLJ SPEC BR/WA IF PFRMD Isra Masters DO [facility] [address] [place] [id number] [address] [address] Referral ID Status Reason Start Date Expiration Date Visits Requested Visits Authorized [id number] Pending Review Auto-Generat ed Referral 11/30/2022 11/30/2023 1 1 [facility] Outpatient Procedure (Routine) - Pending Review Specialty Diagnoses / Procedures Referred By Contac t Referred To Contact [facility] Diagnoses Gastroparesis Procedures EGD - THERAPEUTIC, EUS, OR TUBE INTERVENTIONS ESOPHAGOGASTRODUODENOSC OPY TRANSORAL DIAGNOSTIC STOMACH SURGERY PROCEDURE UNLISTED [place] [address] [facility] Disease [place] [id number] Referral ID Status Reason Start Date Expiration Date Visits Requested Visits Authorized [id number] Pending Review Auto-Generat ed Referral 01/11/2023 01/12/2024 1 1 [facility] ([facility] Outpatient Procedure (Routine) - Pending Review Specialty Diagnoses / Procedures Referred By Contac t Referred To Contact [facility] Diagnoses Incomplete bladder emptying Urinary urgency Urinary frequency Nocturia Procedures URODYNAMICS WHI COMPLX CYSTOMETRO W/VOID PRESS&URETHRAL PROFILE Nelsy Chávez APRN.LINING CLOSER [address] [place] [address] [facility] [address] [place] [address] Referral ID Status Reason Start Date Expiration Date Visits Requested Visits Authorized [id number] Pending Review Auto-Generat ed Referral 07/31/2023 07/30/2024 1 1 [facility] Consultation (Routine) - Open Specialty Diagnoses / Procedures Referred By Gustavo salazar Referred To Contact Family Medicine Diagnoses Upper abdominal pain Lev Ritter APRN [employer] [address] [place] [address] [facility] [address] [facility] [place] [address] Referral ID Status Reason Start Date Expiration Date Visits Re quested Visits Authorized [id number] Open 08/12/2023 09/12/2024 1 1 [facility] NarrativeDISCUSS OTHER OPTIONS PRIOR TO PROCEDURERock Hill [employer] Other Reason for visit NarrativeRECHECK CERVICAL PAIN DISCUSS PROC[facility]ENoun[facility] [employer] Other Reason for visit Narrative* Outpatient Procedure (Routine) - Closed Specialty Diagnoses / Procedures Referred By Gustavo t Referred To Contact [facility] Diagnoses Gastroparesis Procedures GI TRANSIT & PRES RAVINDER WIRELESS CAPSULE W/INTERP Isra Masters DO [facility] [address] [place] [address] [facility] [address] [place] [address] Referral ID Status Reason Start Date Expiration Date Visits Re quested Visits Authorized [id number] Closed 11/08/2022 11/05/2023 1 1 [facility] Summary Purpose Family History No Family [...] FoundDocuments on File Type Date Recorded Patient Customer Data Technician Expl anation Advance Directive(s) 10/13/2021 4:09 PM Advance Directive(s) 10/14/2020 8:14 AM Documents on File Type Date Recorded Patient Customer Data Technician Expl anation Advance Directive(s) 10/13/2021 4:09 PM Advance Directive(s) 10/14/2020 8:14 AM Documents on File Type Date Recorded Patient Customer Data Technician Expl anation Advance Directive(s) 03/21/2022 1:42 PM Advance Directive(s) 10/13/2021 4:09 PM Advance Directive(s) 10/14/2020 8:14 AM Advance Directive Response Recorded Date/ Time Advance Directives No March 28 8 7:15am Advance Directive Response Recorded Date/ Time Advance Directives No March 28 8 8:15am Reason for Referral Specialty Diagnoses / Procedures Referred By Gustavo salazar Referred To Contact Diagnoses Gastroesophageal reflux disease, unspecified whether esophagitis present Isra Masters DO [address] [place] [id number] Referral ID Status Reason Start Date Expiration Date Visits Re quested Visits Authorized [id number] Closed 1 1 Referral ID Status Reason Start Date Expiration Date V isits Requested Visits Authorized [id number] Pending Review 1 1 Specialty Diagnoses / Procedures Referred By Gustavo salazar Referred To Contact CT IMAGING Diagnoses Periumbilical abdominal pain Procedures CT ABD/PEL W IVCON CT ABD & [place]EL[place] W/[place] [address] [place] [address] Ct Imaging Referral ID Status Reason Start Date Expiration Date Visits Requested Visits Authorized [id number] Pending Review Auto-Generat ed Referral 08/02/2022 08/25/2023 1 1 Reason BILATERAL SHOULDER P AIN Diagnosis 1 Shoulder pain (M25.5 19) Referral Organization [facility] Referring Provider First Name Annette Referring Provider Last Name Steven Referring Provider Specialty Pain Medici ne Referred Organization [facility] Referred Provider Annette Cartagena [facility]erred Address [address] [facility] [facility] [place] Referred Provider Specialty Orthopedic S urgery Referral Priority Routine Referral Appointment Date 2022-10-10 General Notes Kim Manley 10:01:46 AM >patient already scheduled with [facility] 10/10/22 at 1:30pm. Sending p2p at this time Referral ID Status Reason Start Date Expiration Date Visits Re quested Visits Authorized [id number] Closed 1 1 Chief Complaint and Reason [...] diaphoresis with recent work-up that [facility] emergency room. Reportedly her troponins are elevated [...] of which are currently being investigated at [facility] (now her fourth GI specialist). * Last year while in [place] she had similar issues with elevated troponins in the ED and underwent heart catheterization that did not reveal any specific significant disease, details of the discharge summary are reviewed * She underwent recent stress perfusion imaging at [facility], the report is reviewed, she hasno evidence [...] disease, will investigate the troponin rise at [facility] however I believe this is likely a non- [place] troponin elevation, likely associated withunderlying inflammatory bowel disease. We will follow-up on a as needed basis unless further objective data come to light * Patient is a 53-year-old female who returns at the request of her primary care physician with episodic chest discomfort associated weakness, dizziness, diaphoresis with recent work-up that [facility] emergency room. Reportedly her troponins are elevated [...] of which are currently being investigated at [facility] (now her fourth GI specialist). * Last year while in [place] she had similar issues with elevated troponins in the ED and underwent heart catheterization that did not reveal any specific significant disease, details of the discharge summary are reviewed * She underwent recent stress perfusion imaging at [facility], the report is reviewed, she hasno evidence [...] disease, will investigate the troponin rise at [facility] however I believe this is likely a non- [place] troponin elevation, likely associated withunderlying inflammatory bowel disease. We will follow-up on a as needed basis unless further objective data come to light Additional Source Comments INFORMATION SOURCE (unrecogn ized section and content) DATE CREATED AUTHOR 07/08/[address] [facility] DATE CREATED AUTHOR AUTHOR'S ORGANIZ ATION 11/18/2021 [facility] DATE CREATED AUTHOR AUTHOR'S ORGANIZ ATION 02/01/2022 [facility] DATE CREATED AUTHOR AUTHOR'S ORGANIZ ATION 04/05/2022 [facility] DATE CREATED AUTHOR AUTHOR'S ORGANIZ ATION 09/29/2022 [facility] DATE CREATED AUTHOR AUTHOR'S ORGANIZ ATION 12/09/2022 [facility] DATE CREATED AUTHOR AUTHOR'S ORGANIZ ATION 04/16/2023 [facility] DATE CREATED AUTHOR AUTHOR'S ORGANIZ ATION 06/14/2023 [facility] DATE CREATED AUTHOR AUTHOR'S ORGANIZ ATION 06/18/2023 [facility] DATE CREATED AUTHOR AUTHOR'S ORGANIZ ATION [facility] DATE CREATED AUTHOR AUTHOR'S ORGANIZ ATION 09/02/2023 [facility] DATE CREATED AUTHOR AUTHOR'S ORGANIZ ATION 10/12/2023 [facility] DATE CREATED AUTHOR AUTHOR'S ORGANIZ ATION 10/27/2023 [facility] DATE CREATED AUTHOR AUTHOR'S ORGANIZ ATION 10/28/2023 [facility] DATE CREATED AUTHOR AUTHOR'S ORGANIZ ATION 11/01/2023 [facility] d[facility] Special[facility] EPIC Source Comments (unrecognize d section and content) In the event this informatio n is protected by the Federal Confidentiality of Alcohol and Drug Abuse Patient Records regulations: The Federal rules restrict any use of the information to criminally investigate or prosecute any alcohol or drug abuse patient.[facility] HospitalIn the event this information is protected by the Federal Confidentiality of Alcohol and Drug Abuse Patient Records regulations: The Federal rules restrict any use of the information to criminally investigate or prosecute any alcohol or drug abuse patient.[facility] HospitalIn the event this information is protected by the Federal Confidentiality of Alcohol and Drug Abuse Patient Records regulations: The Federal rules restrict any use of the information to criminally investigate or prosecute any alcohol or drug abuse patient.[facility] HospitalIn the event this information is protected by the Federal Confidentiality of Alcohol and Drug Abuse Patient Records regulations: The Federal rules restrict any use of the information to criminally investigate or prosecute any alcohol or drug abuse patient.[facility] HospitalIn the event this information is protected by the Federal Confidentiality of Alcohol and Drug Abuse Patient Records regulations: The Federal rules restrict any use of the information to criminally investigate or prosecute any alcohol or drug abuse patient.[facility] HospitalIn the event this information is protected by the Federal Confidentiality of Alcohol and Drug Abuse Patient Records regulations: The Federal rules restrict any use of the information to criminally investigate or prosecute any alcohol or drug abuse patient.[facility] HospitalIn the event this information is protected by the Federal Confidentiality of Alcohol and Drug Abuse Patient Records regulations: The Federal rules restrict any use of the information to criminally investigate or prosecute any alcohol or drug abuse patient.[facility] HospitalIn the event this information is protected by the Federal Confidentiality of Alcohol and Drug Abuse Patient Records regulations: The Federal rules restrict any use of the information to criminally investigate or prosecute any alcohol or drug abuse patient.[facility] HospitalIn the event this information is protected by the Federal Confidentiality of Alcohol and Drug Abuse Patient Records regulations: The Federal rules restrict any use of the information to criminally investigate or prosecute any alcohol or drug abuse patient.[facility] HospitalIn the event this information is protected by the Federal Confidentiality of Alcohol and Drug Abuse Patient Records regulations: The Federal rules restrict any use of the information to criminally investigate or prosecute any alcohol or drug abuse patient.[facility] HospitalIn the event this information is protected by the Federal Confidentiality of Alcohol and Drug Abuse Patient Records regulations: The Federal rules restrict any use of the information to criminally investigate or prosecute any alcohol or drug abuse patient.[facility] HospitalIn the event this information is protected by the Federal Confidentiality of Alcohol and Drug Abuse Patient Records regulations: The Federal rules restrict any use of the information to criminally investigate or prosecute any alcohol or drug abuse patient.[facility] HospitalIn the event this information is protected by the Federal Confidentiality of Alcohol and Drug Abuse Patient Records regulations: The Federal rules restrict any use of the information to criminally investigate or prosecute any alcohol or drug abuse patient.[facility] HospitalIn the event this information is protected by the Federal Confidentiality of Alcohol and Drug Abuse Patient Records regulations: The Federal rules restrict any use of the information to criminally investigate or prosecute any alcohol or drug abuse patient.[facility] HospitalIn the event this information is protected by the Federal Confidentiality of Alcohol and Drug Abuse Patient Records regulations: The Federal rules restrict any use of the information to criminally investigate or prosecute any alcohol or drug abuse patient.[facility] HospitalIn the event this information is protected by the Federal Confidentiality of Alcohol and Drug Abuse Patient Records regulations: The Federal rules restrict any use of the information to criminally investigate or prosecute any alcohol or drug abuse patient.[facility] HospitalIn the event this information is protected by the Federal Confidentiality of Alcohol and Drug Abuse Patient Records regulations: The Federal rules restrict any use of the information to criminally investigate or prosecute any alcohol or drug abuse patient.[facility] HospitalIn the event this information is protected by the Federal Confidentiality of Alcohol and Drug Abuse Patient Records regulations: The Federal rules restrict any use of the information to criminally investigate or prosecute any alcohol or drug abuse patient.[facility] HospitalIn the event this information is protected by the Federal Confidentiality of Alcohol and Drug Abuse Patient Records regulations: The Federal rules restrict any use of the information to criminally investigate or prosecute any alcohol or drug abuse patient.[facility] HospitalIn the event this information is protected by the Federal Confidentiality of Alcohol and Drug Abuse Patient Records regulations: The Federal rules restrict any use of the information to criminally investigate or prosecute any alcohol or drug abuse patient.[facility] HospitalIn the event this information is protected by the Federal Confidentiality of Alcohol and Drug Abuse Patient Records regulations: The Federal rules restrict any use of the information to criminally investigate or prosecute any alcohol or drug abuse patient.[facility] HospitalIn the event this information is protected by the Federal Confidentiality of Alcohol and Drug Abuse Patient Records regulations: The Federal rules restrict any use of the information to criminally investigate or prosecute any alcohol or drug abuse patient.[facility] HospitalIn the event this information is protected by the Federal Confidentiality of Alcohol and Drug Abuse Patient Records regulations: The Federal rules restrict any use of the information to criminally investigate or prosecute any alcohol or drug abuse patient.[facility] HospitalIn the event this information is protected by the Federal Confidentiality of Alcohol and Drug Abuse Patient Records regulations: The Federal rules restrict any use of the information to criminally investigate or prosecute any alcohol or drug abuse patient.[facility] HospitalIn the event this information is protected by the Federal Confidentiality of Alcohol and Drug Abuse Patient Records regulations: The Federal rules restrict any use of the information to criminally investigate or prosecute any alcohol or drug abuse patient.[facility] HospitalIn the event this information is protected by the Federal Confidentiality of Alcohol and Drug Abuse Patient Records regulations: The Federal rules restrict any use of the information to criminally investigate or prosecute any alcohol or drug abuse patient.[facility] HospitalIn the event this information is protected by the Federal Confidentiality of Alcohol and Drug Abuse Patient Records regulations: The Federal rules restrict any use of the information to criminally investigate or prosecute any alcohol or drug abuse patient.[facility] HospitalIn the event this information is protected by the Federal Confidentiality of Alcohol and Drug Abuse Patient Records regulations: The Federal rules restrict any use of the information to criminally investigate or prosecute any alcohol or drug abuse patient.[facility] HospitalIn the event this information is protected by the Federal Confidentiality of Alcohol and Drug Abuse Patient Records regulations: The Federal rules restrict any use of the information to criminally investigate or prosecute any alcohol or drug abuse patient.[facility] HospitalIn the event this information is protected by the Federal Confidentiality of Alcohol and Drug Abuse Patient Records regulations: The Federal rules restrict any use of the information to criminally investigate or prosecute any alcohol or drug abuse patient.[facility] HospitalIn the event this information is protected by the Federal Confidentiality of Alcohol and Drug Abuse Patient Records regulations: The Federal rules restrict any use of the information to criminally investigate or prosecute any alcohol or drug abuse patient.[facility] HospitalIn the event this information is protected by the Federal Confidentiality of Alcohol and Drug Abuse Patient Records regulations: The Federal rules restrict any use of the information to criminally investigate or prosecute any alcohol or drug abuse patient.[facility] HospitalIn the event this information is protected by the Federal Confidentiality of Alcohol and Drug Abuse Patient Records regulations: The Federal rules restrict any use of the information to criminally investigate or prosecute any alcohol or drug abuse patient.[facility] HospitalIn the event this information is protected by the Federal Confidentiality of Alcohol and Drug Abuse Patient Records regulations: The Federal rules restrict any use of the information to criminally investigate or prosecute any alcohol or drug abuse patient.[facility] HospitalIn the event this information is protected by the Federal Confidentiality of Alcohol and Drug Abuse Patient Records regulations: The Federal rules restrict any use of the information to criminally investigate or prosecute any alcohol or drug abuse patient.[facility] HospitalIn the event this information is protected by the Federal Confidentiality of Alcohol and Drug Abuse Patient Records regulations: The Federal rules restrict any use of the information to criminally investigate or prosecute any alcohol or drug abuse patient.[facility] HospitalIn the event this information is protected by the Federal Confidentiality of Alcohol and Drug Abuse Patient Records regulations: The Federal rules restrict any use of the information to criminally investigate or prosecute any alcohol or drug abuse patient.[facility] HospitalIn the event this information is protected by the Federal Confidentiality of Alcohol and Drug Abuse Patient Records regulations: The Federal rules restrict any use of the information to criminally investigate or prosecute any alcohol or drug abuse patient.[facility] HospitalIn the event this information is protected by the Federal Confidentiality of Alcohol and Drug Abuse Patient Records regulations: The Federal rules restrict any use of the information to criminally investigate or prosecute any alcohol or drug abuse patient.[facility] HospitalIn the event this information is protected by the Federal Confidentiality of Alcohol and Drug Abuse Patient Records regulations: The Federal rules restrict any use of the information to criminally investigate or prosecute any alcohol or drug abuse patient.[facility] HospitalIn the event this information is protected by the Federal Confidentiality of Alcohol and Drug Abuse Patient Records regulations: The Federal rules restrict any use of the information to criminally investigate or prosecute any alcohol or drug abuse patient.[facility] HospitalIn the event this information is protected by the Federal Confidentiality of Alcohol and Drug Abuse Patient Records regulations: The Federal rules restrict any use of the information to criminally investigate or prosecute any alcohol or drug abuse patient.[facility] HospitalIn the event this information is protected by the Federal Confidentiality of Alcohol and Drug Abuse Patient Records regulations: The Federal rules restrict any use of the information to criminally investigate or prosecute any alcohol or drug abuse patient.[facility] HospitalIn the event this information is protected by the Federal Confidentiality of Alcohol and Drug Abuse Patient Records regulations: The Federal rules restrict any use of the information to criminally investigate or prosecute any alcohol or drug abuse patient.[facility] HospitalIn the event this information is protected by the Federal Confidentiality of Alcohol and Drug Abuse Patient Records regulations: The Federal rules restrict any use of the information to criminally investigate or prosecute any alcohol or drug abuse patient.[facility] HospitalIn the event this information is protected by the Federal Confidentiality of Alcohol and Drug Abuse Patient Records regulations: The Federal rules restrict any use of the information to criminally investigate or prosecute any alcohol or drug abuse patient.[facility] HospitalIn the event this information is protected by the Federal Confidentiality of Alcohol and Drug Abuse Patient Records regulations: The Federal rules restrict any use of the information to criminally investigate or prosecute any alcohol or drug abuse patient.[facility] HospitalIn the event this information is protected by the Federal Confidentiality of Alcohol and Drug Abuse Patient Records regulations: The Federal rules restrict any use of the information to criminally investigate or prosecute any alcohol or drug abuse patient.[facility] HospitalIn the event this information is protected by the Federal Confidentiality of Alcohol and Drug Abuse Patient Records regulations: The Federal rules restrict any use of the information to criminally investigate or prosecute any alcohol or drug abuse patient.[facility] HospitalIn the event this information is protected by the Federal Confidentiality of Alcohol and Drug Abuse Patient Records regulations: The Federal rules restrict any use of the information to criminally investigate or prosecute any alcohol or drug abuse patient.[facility] HospitalIn the event this information is protected by the Federal Confidentiality of Alcohol and Drug Abuse Patient Records regulations: The Federal rules restrict any use of the information to criminally investigate or prosecute any alcohol or drug abuse patient.[facility] HospitalIn the event this information is protected by the Federal Confidentiality of Alcohol and Drug Abuse Patient Records regulations: The Federal rules restrict any use of the information to criminally investigate or prosecute any alcohol or drug abuse patient.[facility] HospitalIn the event this information is protected by the Federal Confidentiality of Alcohol and Drug Abuse Patient Records regulations: The Federal rules restrict any use of the information to criminally investigate or prosecute any alcohol or drug abuse patient.[facility] HospitalIn the event this information is protected by the Federal Confidentiality of Alcohol and Drug Abuse Patient Records regulations: The Federal rules restrict any use of the information to criminally investigate or prosecute any alcohol or drug abuse patient.[facility] HospitalIn the event this information is protected by the Federal Confidentiality of Alcohol and Drug Abuse Patient Records regulations: The Federal rules restrict any use of the information to criminally investigate or prosecute any alcohol or drug abuse patient.[facility] HospitalIn the event this information is protected by the Federal Confidentiality of Alcohol and Drug Abuse Patient Records regulations: The Federal rules restrict any use of the information to criminally investigate or prosecute any alcohol or drug abuse patient.[facility] HospitalIn the event this information is protected by the Federal Confidentiality of Alcohol and Drug Abuse Patient Records regulations: The Federal rules restrict any use of the information to criminally investigate or prosecute any alcohol or drug abuse patient.[facility] HospitalIn the event this information is protected by the Federal Confidentiality of Alcohol and Drug Abuse Patient Records regulations: The Federal rules restrict any use of the information to criminally investigate or prosecute any alcohol or drug abuse patient.[facility] HospitalIn the event this information is protected by the Federal Confidentiality of Alcohol and Drug Abuse Patient Records regulations: The Federal rules restrict any use of the information to criminally investigate or prosecute any alcohol or drug abuse patient.[facility] HospitalIn the event this information is protected by the Federal Confidentiality of Alcohol and Drug Abuse Patient Records regulations: The Federal rules restrict any use of the information to criminally investigate or prosecute any alcohol or drug abuse patient.[facility] HospitalIn the event this information is protected by the Federal Confidentiality of Alcohol and Drug Abuse Patient Records regulations: The Federal rules restrict any use of the information to criminally investigate or prosecute any alcohol or drug abuse patient.[facility] HospitalIn the event this information is protected by the Federal Confidentiality of Alcohol and Drug Abuse Patient Records regulations: The Federal rules restrict any use of the information to criminally investigate or prosecute any alcohol or drug abuse patient.[facility] HospitalIn the event this information is protected by the Federal Confidentiality of Alcohol and Drug Abuse Patient Records regulations: The Federal rules restrict any use of the information to criminally investigate or prosecute any alcohol or drug abuse patient.[facility] HospitalIn the event this information is protected by the Federal Confidentiality of Alcohol and Drug Abuse Patient Records regulations: The Federal rules restrict any use of the information to criminally investigate or prosecute any alcohol or drug abuse patient.[facility] HospitalIn the event this information is protected by the Federal Confidentiality of Alcohol and Drug Abuse Patient Records regulations: The Federal rules restrict any use of the information to criminally investigate or prosecute any alcohol or drug abuse patient.[facility] HospitalIn the event this information is protected by the Federal Confidentiality of Alcohol and Drug Abuse Patient Records regulations: The Federal rules restrict any use of the information to criminally investigate or prosecute any alcohol or drug abuse patient.[facility] HospitalIn the event this information is protected by the Federal Confidentiality of Alcohol and Drug Abuse Patient Records regulations: The Federal rules restrict any use of the information to criminally investigate or prosecute any alcohol or drug abuse patient.[facility] HospitalIn the event this information is protected by the Federal Confidentiality of Alcohol and Drug Abuse Patient Records regulations: The Federal rules restrict any use of the information to criminally investigate or prosecute any alcohol or drug abuse patient.[facility] HospitalIn the event this information is protected by the Federal Confidentiality of Alcohol and Drug Abuse Patient Records regulations: The Federal rules restrict any use of the information to criminally investigate or prosecute any alcohol or drug abuse patient.[facility] HospitalIn the event this information is protected by the Federal Confidentiality of Alcohol and Drug Abuse Patient Records regulations: The Federal rules restrict any use of the information to criminally investigate or prosecute any alcohol or drug abuse patient.[facility] HospitalIn the event this information is protected by the Federal Confidentiality of Alcohol and Drug Abuse Patient Records regulations: The Federal rules restrict any use of the information to criminally investigate or prosecute any alcohol or drug abuse patient.[facility] HospitalIn the event this information is protected by the Federal Confidentiality of Alcohol and Drug Abuse Patient Records regulations: The Federal rules restrict any use of the information to criminally investigate or prosecute any alcohol or drug abuse patient.[facility] HospitalIn the event this information is protected by the Federal Confidentiality of Alcohol and Drug Abuse Patient Records regulations: The Federal rules restrict any use of the information to criminally investigate or prosecute any alcohol or drug abuse patient.[facility] HospitalIn the event this information is protected by the Federal Confidentiality of Alcohol and Drug Abuse Patient Records regulations: The Federal rules restrict any use of the information to criminally investigate or prosecute any alcohol or drug abuse patient.[facility] HospitalIn the event this information is protected by the Federal Confidentiality of Alcohol and Drug Abuse Patient Records regulations: The Federal rules restrict any use of the information to criminally investigate or prosecute any alcohol or drug abuse patient.[facility] HospitalIn the event this information is protected by the Federal Confidentiality of Alcohol and Drug Abuse Patient Records regulations: The Federal rules restrict any use of the information to criminally investigate or prosecute any alcohol or drug abuse patient.[facility] Reason for Visit (unrecogniz ed section and content) Reason Comments Physical Therapy Specialty Diagnoses / Procedures Referred By Gustavo salazar Referred To Contact [facility] Diagnoses Follow-up examination after colorectal surgery Procedures CONSULT TO PHYSICAL THERAPY PHYSICAL THERAPY EVALUATION HIGH COMPLEX [address] [place] [address] [place] [address] [facility] [place] [address] [place] [address] Referral ID Status Reason Start Date Expiration Date Visits Requested Visits Authorized [id number] Authorized Auto-Generat ed Referral 01/04/2022 11/05/2022 30 30 Reason Comments Refill Request dexlansoprazole Reason Comments Established Patient Follow-Up Reason Comments Post Op Reason Comments Established Patient Reason Comments Appointment for script refill Reason Comments Gastroparesis 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 Comments 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 Reason Comments Medication 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 PA [...] ESOPHAGUS DOUBLE CONTRAST [place]UD[place] [address] Xr Imaging Referral ID Status Reason Start Date Expiration Date V isits Requested Visits Authorized [id number] Closed Auto-Generate d Referral 11/17/2022 12/17/2023 1 [...] ABD & [place] [address] [place] [address] Ct Imaging Referral ID Status Reason Start Date Expiration Date V isits Requested Visits Authorized [id number] Closed Auto-Generate d Referral 07/28/2022 11/05/2022 2 2 Reason Comments Urinary Retention Reason Comments Abdominal Pain Reason Comments Med Change Request Care Teams (unrecognized sec tion and content) Team Status: Active Member Role Status Dates Shannon Willams DO Primary Care Provider Active Team Status: Inactive Member Role Status Dates Shannon Willams DO Primary Care Provider Active iNecy Duron PA-C Attending Provider Active Cafeteria Cashier Relationship Specialty Start Date End Date Eliceo Willams Jr. [address] [place] [address] PCP - General Family Practice 10/14/20 Cafeteria Cashier Relationship Specialty Start Date End Date Eliceo Willams Jr. [address] [place] [address] PCP - General Family Practice 10/14/20 Cafeteria Cashier Relationship Specialty Start Date End Date Eliceo Willams Jr. [address] [place] [address] PCP - General Family Practice 10/14/20 Cafeteria Cashier Relationship Specialty Start Date End Date Eliceo Willams Jr. [address] [place] [address] PCP - General Family Practice 10/14/20 Cafeteria Cashier Relationship Specialty Start Date End Date Eliceo Willams Jr. [address] [place] [address] PCP - General Family Practice 10/14/20 Cafeteria Cashier Relationship Specialty Start Date End Date Eliceo Willams Jr. [address] [place] [address] PCP - General Family Practice 10/14/20 Gwendolyn Stroud [address] [place] [address] Family Practice 03/14/22 Cafeteria Cashier Relationship Specialty Start Date End Date Eliceo Willams Jr. [address] [place] [address] PCP - General Family Practice 10/14/20 Gwendolyn Stroud [address] [place] [address] Family Practice 03/14/22 Cafeteria Cashier Relationship Specialty Start Date End Date Eliceo Willams Reno [address] [place] [address] PCP - General Family Practice 10/14/20 Gwendolyn Stroud [address] [place] [address] Family Practice 03/14/22 Cafeteria Cashier Relationship Specialty Start Date End Date Eliceo Willams JrReno [address] [place] [address] PCP - General Family Practice 10/14/20 Gwendolyn Stroud [address] [place] [address] Family Practice 03/14/22 Cafeteria Cashier Relationship Specialty Start Date End Date Eliceo Willams JrReno [address] [place] [address] PCP - General Family Practice 10/14/20 Gwendolyn Stroud [address] [place] [address] Family Practice 03/14/22 Cafeteria Cashier Relationship Specialty Start Date End Date Eliceo Willams JrReno [address] [place] [address] PCP - General Family Practice 10/14/20 Gwendolyn Stroud [address] [place] [address] Family Practice 03/14/22 Cafeteria Cashier Relationship Specialty Start Date End Date Eliceo Willams JrReno [address] [place] [address] PCP - General Family Practice 10/14/20 Gwendolyn Stroud, [facility] Family Practice 03/14/22 Cafeteria Cashier Relationship Specialty Start Date End Date Eliceo Willams JrReno [address] [place] [address] PCP - General Family Practice 10/14/20 Gwendolyn Stroud [employer] Family Practice 03/14/22 Cafeteria Cashier Relationship Specialty Start Date End Date Eliceo Willams Jr. [address] [place] [address] PCP - General Family Practice 10/14/20 Gwendolyn Stroud, [employer] Family Practice 03/14/22 Cafeteria Cashier Relationship Specialty Start Date End Date Eliceo Willams Jr. [address] [place] [address] PCP - General Family Practice 10/14/20 Gwendolyn Stroud, [employer] Family Practice 03/14/22 Cafeteria Cashier Relationship Specialty Start Date End Date Eliceo Willams Jr. [address] [place] [address] PCP - General Family Medicine 10/14/20 Gwendolyn Stroud, [employer] Family Medicine 03/14/22 Cafeteria Cashier Relationship Specialty Start Date End Date Eliceo Willams Jr. [address] [place] [address] PCP - General Family Medicine 10/14/20 Gwendolyn Stroud, [employer] Family Medicine 03/14/22 Cafeteria Cashier Relationship Specialty Start Date End Date Eliceo Willams Jr. [address] [place] [address] PCP - General Family Medicine 10/14/20 Gwendolyn Stroud, [employer] Family Medicine 03/14/22 Cafeteria Cashier Relationship Specialty Start Date End Date Eliceo Willams Jr. [address] [place] [address] PCP - General Family Medicine 10/14/20 Gwendolyn Stroud CNP Family Medicine 03/14/22 Team Status: Inactive Member Role Status Dates Shannon Willams DO Primary Care Provider Active Annette Harris MD Attending Provider Active Cafeteria Cashier Relationship Specialty Start Date End Date Eliceo Willams Jr. [address] [place] [address] PCP - General Family Medicine 10/14/20 Gwendolyn Stroud, [facility] [address] [place] [address] Family Medicine 03/14/22 Cafeteria Cashier Relationship Specialty Start Date End Date Eliceo Willams Jr. [address] [place] [address] PCP - General Family Medicine 10/14/20 Gwendolyn Stroud, [facility] [address] [place] [address] Family Medicine 03/14/22 Cafeteria Cashier Relationship Specialty Start Date End Date Eliceo Willams Jr. [address] [place] [address] PCP - General Family Medicine 10/14/20 Gwendolyn Stroud, [facility] [address] [place] [address] Family Medicine 03/14/22 Cafeteria Cashier Relationship Specialty Start Date End Date Eliceo Willams Jr. [address] [place] [address] PCP - General Family Medicine 10/14/20 Gwendolyn Stroud CNP [address] [place] [address] Family Medicine 03/14/22 Cafeteria Cashier Relationship Specialty Start Date End Date Eliceo Willams Jr. [address] [place] [address] PCP - General Family Medicine 10/14/20 Gwendolyn Stroud CNP [address] [place] [address] Family Medicine 03/14/22 Cafeteria Cashier Relationship Specialty Start Date End Date Eliceo Willams Jr. [address] [place] [address] PCP - General Family Medicine 10/14/20 Gwendolyn Stroud CNP [address] [place] [address] Family Medicine 03/14/22 Cafeteria Cashier Relationship Specialty Start Date End Date Eliceo Willams Jr. [address] [place] [address] PCP - General Family Medicine 10/14/20 Gwendolyn Stroud CNP [address] [place] [address] Family Medicine 03/14/22 Cafeteria Cashier Relationship Specialty Start Date End Date Eliceo Willams Jr. [address] [place] [address] PCP - General Family Medicine 10/14/20 Gwendolyn Stroud CNP [address] [place] [address] Family Medicine 03/14/22 Cafeteria Cashier Relationship Specialty Start Date End Date Eliceo Willams Jr. [address] [place] [address] PCP - General Family Medicine 10/14/20 Gwendolyn Stroud CNP [address] [place] [address] Family Medicine 03/14/22 Cafeteria Cashier Relationship Specialty Start Date End Date Eliceo Willams Jr. [address] [place] [address] PCP - General Family Medicine 10/14/20 Gwendolyn Stroud CNP [address] [place] [address] Family Medicine 03/14/22 Cafeteria Cashier Relationship Specialty Start Date End Date Eliceo Willams Jr. [address] [place] [address] PCP - General Family Medicine 10/14/20 Gwendolyn Stroud, [employer] [address] [place] [address] Family Medicine 03/14/22 Team Status: Inactive Member Role Status Dates Shannon Willams , Primary Care Provider Active Annette Cartagena MD Attending Provider Active Cafeteria Cashier Relationship Specialty Start Date End Date Eliceo Willams Jr. [address] [place] [address] PCP - General Family Medicine 10/14/20 Gwendolyn Stroud, [employer] [address] [place] [address] Family Medicine 03/14/22 Cafeteria Cashier Relationship Specialty Start Date End Date Eliceo Willams Jr. [address] [place] [address] PCP - General Family Medicine 10/14/20 Gwendolyn Stroud, [employer] [address] [place] [address] Family Medicine 03/14/22 Cafeteria Cashier Relationship Specialty Start Date End Date Eliceo Willams Jr. [address] [place] [address] PCP - General Family Medicine 10/14/20 Gwendolyn Stroud, [employer] [address] [place] [address] Family Medicine 03/14/22 Cafeteria Cashier Relationship Specialty Start Date End Date Eliceo Willams Jr. [address] [place] [address] PCP - General Family Medicine 10/14/20 Gwendolyn Stroud, [employer] [address] [place] [address] Family Medicine 03/14/22 Cafeteria Cashier Relationship Specialty Start Date End Date Eliceo Willams Jr. [address] [place] [address] PCP - General Family Medicine 10/14/20 Gwendolyn Stroud, [employer] [address] [place] [address] Family Medicine 03/14/22 Cafeteria Cashier Relationship Specialty Start Date End Date Eliceo Willams Jr. [address] [place] [address] PCP - General Family Medicine 10/14/20 Gwendolyn Stroud CNP [address] [place] [address] Family Medicine 03/14/22 Cafeteria Cashier Relationship Specialty Start Date End Date Eliceo Willams Jr. [address] [place] [address] PCP - General Family Medicine 10/14/20 Gwendolyn Stroud CNP [address] [place] [address] Family Medicine 03/14/22 Cafeteria Cashier Relationship Specialty Start Date End Date Eliceo Willams Jr. [address] [place] [address] PCP - General Family Medicine 10/14/20 Gwendolyn Stroud CNP [address] [place] [address] Family Medicine 03/14/22 Team Status: Inactive Member Role Status Dates Shannon Willams , DO Primary Care Provider Active Anibal Valle , DO Emergency Provider Active Cafeteria Cashier Relationship Specialty Start Date End Date Eliceo Willams Jr. [address] [place] [address] PCP - General Family Medicine 10/14/20 Gwendolyn Stroud CNP [address] [place] [address] Family Medicine 03/14/22 Cafeteria Cashier Relationship Specialty Start Date End Date Eliceo Willams Jr. [address] [place] [address] PCP - General Family Medicine 10/14/20 Gwendolyn Stroud CNP [address] [place] [address] Family Medicine 03/14/22 Cafeteria Cashier Relationship Specialty Start Date End Date Eliceo Willams Jr. [address] [place] [address] PCP - General Family Medicine 10/14/20 Gwendolyn Stroud CNP [address] [place] [address] Family Medicine 03/14/22 Cafeteria Cashier Relationship Specialty Start Date End Date Eliceo Willams Jr., DO [address] [place] [address] PCP - General Family Medicine 10/14/20 Gwendolyn Stroud CNP [address] [place] [id number] Family Medicine 03/14/22 [employer] Relationship Specialty Start Date End Date Eliceo Willams Jr., DO [address] [place] [address] PCP - General Family Medicine 10/14/20 Gwendolyn Stroud CNP [address] [place] [address] Family Medicine 03/14/22 Goals (unrecognized section and [...] ider: Jaren Hare RN)[id number] (Stopped - Provider: Mosnerrat Scales RN) aluminum-magnesium hydroxide 200-200 MG/5ML suspension [...] BE BASED ON THE PRIMARY CLINICAL RECORDS. [facility]. provides no warranty or guarantee of the accuracy or completeness of information in this document.
--- NOTE | 2023-11-03 08:49 | P.GSHP_ITS ---
History of Present Illness History of Present Illness Chief complaint: painful hardware right Narrative: Patient presents for preadmission testing. Please see HPI from Dr. Felix dated 10/25/2023. Review of Systems ROS Narrative Please see ROS from Dr. Felix dated 10/25/2023. [facility] Medical History (Updated 11/03/23 @ 08:28 by Hawa Mcghee NP) Panic attacks ?F41.0 - Panic disorder [episodic paroxysmal anxiety] (ICD-10) OCD (obsessive compulsive disorder) ?F42.9 - Obsessive-compulsive disorder, unspecified (ICD-10) COVID-19 ?U07.1 - COVID-19 (ICD-10) Migraine ?G43.909 - Migraine, unspecified, not intractable, without status migrainosus (ICD-10) Gastritis ?K29.70 - Gastritis, unspecified, without bleeding (ICD-10) GERD (gastroesophageal reflux disease) ?K21.9 - Gastro-esophageal reflux disease without esophagitis (ICD-10) Peroneal tendinitis ?M76.70 - Peroneal tendinitis, unspecified leg (ICD-10) Posterior tibial tendon dysfunction ?M76.829 - Posterior tibial tendinitis, unspecified leg (ICD-10) Painful orthopaedic hardware ?T84.84XA - Pain due to internal orthopedic prosthetic devices, implants and grafts, initial encounter (ICD-10) Cellulitis ?L03.90 - Cellulitis, unspecified (ICD-10) Post op infection ?T81.40XA - Infection following a procedure, unspecified, initial encounter (ICD-10) Restless leg syndrome ?G25.81 - Restless legs syndrome (ICD-10) Tibialis anterior tendon tear, traumatic ?S86.219A - Strain of muscle(s) and tendon(s) of anterior muscle group at lower leg level, unspecified leg, initial encounter (ICD-10) Osteoarthritis ?M19.90 - Unspecified osteoarthritis, unspecified site (ICD-10) Back pain ?M54.9 - Dorsalgia, unspecified (ICD-10) Sleep disorder ?G47.9 - Sleep disorder, unspecified (ICD-10) PTSD (post-traumatic stress disorder) ?F43.10 - Post-traumatic stress disorder, unspecified (ICD-10) Depression ?F32.A - Depression, unspecified (ICD-10) Anxiety ?F41.9 - Anxiety disorder, unspecified (ICD-10) Sleep apnea ?G47.30 - Sleep apnea, unspecified (ICD-10) Asthma ?J45.909 - Unspecified asthma, uncomplicated (ICD-10) Constipation ?K59.00 - Constipation, unspecified (ICD-10) High cholesterol ?E78.00 - Pure hypercholesterolemia, unspecified (ICD-10) Hypertension ?I10 - Essential (primary) hypertension (ICD-10) Female rectocele with enterocele ?N81.6 - Rectocele (ICD-10) ?K46.9 - Unspecified abdominal hernia without obstruction or gangrene (ICD- 10) 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 - Other specified functional intestinal disorders (ICD-10) Surgical History (Updated 11/03/23 @ 08:16 by Hawa Mcghee NP) H/O tooth extraction ?K08.409 - Partial loss of teeth, unspecified cause, unspecified class (ICD- 10) H/O foot surgery (05/12/23) ?Z98.890 - Other specified postprocedural states (ICD-10) History of appendectomy (1987) ?Z90.49 - Acquired absence of other specified parts of digestive tract (ICD- 10) History of colonoscopy ?Z98.890 - Other specified postprocedural states (ICD-10) History of colectomy (03/2022) ?Z90.49 - Acquired absence of other specified parts of digestive tract (ICD- 10) History of tonsillectomy and adenoidectomy ?Z90.89 - Acquired absence of other organs (ICD-10) History of hysterectomy (2014) ?Z90.710 - Acquired absence of both cervix and uterus (ICD-10) History of arthroplasty of right ankle ?Z98.890 - Other specified postprocedural states (ICD-10) History of repair of rotator cuff ?Z98.890 - Other specified postprocedural states (ICD-10) S/P ankle ligament repair (2020) ?Z98.890 - Other specified postprocedural states (ICD-10) Family History (Updated 05/18/23 @ 02:39 by Olivia Salazar) Other Family history of Alzheimer's disease Family history of coronary artery disease Family history of heart disease Family history of hypertension Social History (Updated 05/18/23 @ 02:40 by Olivia Salazar) Within the past year, how often did you have a drink containing alcohol: never Score interpretation: A score less than 3 is consistent with normal alcohol consumption. Smoking status: Never smoker Non-prescribed substance use: denies use Previous occupational history: unemployed Highest level of school completed/degree received: some college, no degree Little interest or pleasure in doing things: not at all Feeling down, depressed, or hopeless: not at all Feel stressed/tense/nervous/anxious/difficulty sleeping: only a little Due to disability, difficulty making decisions: No Do you think of yourself as: straight/heterosexual Gender Identity: female Meds Home Medications and Allergies Home Medications Medication Instructions Recorded Confirmed Type albuterol sulfate 90 mcg/actuation 2 puff inhalation Q4H PRN 05/04/23 11/03/23 History aerosol inhaler (Ventolin HFA) shortness of breath or wheezing atenolol 25 mg tablet 25 mg PO Q24H 05/04/23 11/03/23 History dexlansoprazole 60 mg 60 mg PO QAM 05/04/23 11/03/23 History capsule,biphase delayed release fremanezumab-vfrm 225 mg/1.5 mL 125 mg subcut .[id number] 05/04/23 11/03/23 History subcutaneous auto-injector (Ajovy) ropinirole 1 mg tablet 1 mg PO QAM 05/04/23 11/03/23 History ropinirole 2 mg tablet 2 mg PO QPM 05/04/23 11/03/23 History aripiprazole 9.75 mg/1.3 mL 100 mg IM .monthly 10/29/23 11/03/23 History intramuscular solution clonidine 0.1 mg/24 hr weekly 1 patch topical .weekly 10/29/23 11/03/23 History transdermal patch daridorexant 25 mg tablet (Quviviq) 25 mg PO QPM 10/29/23 11/03/23 History hydrocodone 5 mg-acetaminophen 325 1 tab PO Q6H PRN pain 5 days #20 10/29/23 11/03/23 Rx mg tablet tabs fluticasone fur. 100 mcg-umeclid 1 inh inhalation Q24H 11/03/23 11/03/23 History 62.5 mcg-vilant 25 mcg inhalat.powder (Trelegy Ellipta) lamotrigine 25 mg disintegrating 25 mg PO DAILY 11/03/23 11/03/23 History tablet Allergies Allergy/AdvReac Type Severity Reaction Status Date / Time risperidone [From Risperdal] AdvReac Mild breast Verified 10/29/23 06:46 nipples leak Exam Narrative Exam Narrative: Constitutional: Awake, alert, comfortable, well-appearing, nontoxic, interactive, vital signs as charted Head: Normocephalic, atraumatic Neck: Supple, normal appearance, normal range of motion, no meningeal signs, no lymphadenopathy Respiratory: No respiratory distress, breath sounds clear Cardiovascular: Regular rate and rhythm, strong and regular heart tones Psychiatric: Oriented ?3, normal affect Assessment and Plan Assessment and Plan (1) Peroneal tendinitis: (2) Posterior tibial tendon dysfunction: (3) Painful orthopaedic hardware: (4) Osteoarthritis: Plan Removal of hardware right foot, repair of peroneal tendon, stress exam under anesthesia scheduled with Dr. Felix 11/13/2023.
== END 2023-11-03 07:51 | disposition home or self-care (01) ==
LOC: PST 07:50
PROVIDERS: PCP Family Medicine; Visit Provider Podiatrist Foot & Ankle Surgery
DX: Z01.810 Encounter for preprocedural cardiovascular examination (principal); Z01.818 Encounter for other preprocedural examination; T84.84XA Pain due to internal orthopedic prosthetic devices, implants and grafts, initial encounter; M19.071 Primary osteoarthritis, right ankle and foot
CPT/HCPCS: 93005; G0463

== ENCOUNTER 2023-11-06 08:57 | Outpatient (RCR) | payer OTHER, SELFPAY | END 2023-11-07 11:56 | disposition home or self-care (01) | LOC: PT 08:57 | PROVIDERS: PCP Family Medicine; Visit Provider Podiatrist Foot & Ankle Surgery | DX: Z53.8 Procedure and treatment not carried out for other reasons (principal) ==

== ENCOUNTER 2023-11-13 07:36 | Day surgery (SDC) | payer OTHER, SELFPAY ==
--- NOTE | 2023-11-03 08:03 | ECG_ITS ---
[facility] Test Date: 2023-11-03 Pat Name: ELSIE FUENTES Department: Room: - Gender: Female Return Checker: : 1970 Requested By: SADE WILDE Order Number: [id number] Reading MD: ANGEL EUCEDA Measurements Intervals [place] Rate: 52 P: -2 IA: 171 QRS: 9 QRSD: 92 T: 8 QT: 437 QTc: 410 Interpretive Statements SINUS BRADYCARDIA WITH SINUS ARRHYTHMIA No previous ECG available for comparison Electronically Signed On 11-06-2023 17:22:20 EST by ANGEL EUCEDA
[2023-11-03 08:44] VITALS: BP 152/88; PULSE 57; RESP 18; TEMP 36.3; O2SAT 100; BMI 29.0
[2023-11-13] VITALS (11 sets, daily range): BP systolic 124–171; BP diastolic 76–124; PULSE 65–78; RESP 12–20; TEMP 36.2–36.9; O2SAT 94–100; BMI 27.7
--- OUTSIDE RECORDS SUMMARY | 2023-11-13 07:41 | XMS_ITS | CCD ---
Author Name Unknown Address [address] [place] [address] Organization [facility] Care Team Providers Care [employer] Operator Name Role Phone PARISH WILLAMS Primary Care Unavailable Eliceo Willams Jr. Primary Care Provider Yaniv Stroudcie Unavailable Maximus OROSCO, Gwendolyn Unavailable Annette Harris Unavailable Tita Daugherty Unavailable Erica Kingston Unavailable Eliceo Willams Unavailable Unavailable Unavailable Allison Arita Unavailable Eliceo Willams Jr. Primary Care Provider Maximus OROSCO, Gwendolyn Unavailable [phone] Eliceo Willams Unavailable DO Shannon Willams Primary Care Provider MD Annette Harris Attending Provider Eliceo Willams Jr. Primary Care Provider Maximus OROSCO, Gwendolyn Unavailable Annette Cartagena Unavailable MD Annette Cartagena Attending Provider WINSTON HANNAH Attending Unavailable WINSTON HANNAH Referring Unavailable ELICEO WILLAMS JR Primary Care Unavail able ISRA MASTERS Attending Unavailable ISRA MASTERS Referring Unavailable ELCIEO WILLAMS JR Primary Care Unavail able DO Shannon Willams Primary Care Provider [phone] LORRAINE Duron Attending Provider JEM ., DR BAEZA Consulting Unavailable KAFTAN, DR Isatu LUGO Primary Care Unavailable HAY ., DR BAEZA Admitting Unavailable HAY ., DR BAEZA Attending Unavailable SALMA AMEZQUITA Consulting Unavailable HIGHLANDER, SADE Keys Consulting Unavailable HIGHLANDER, SADE Keys Attending Unavailable HIGHLANDER, SADE Keys Admitting Unavailable KAFTAN, DR Isatu LUGO Primary Care Unavailable SHERLYN HOLLINGSWORTH Consulting Unavailable HIGHLANDER, SADE Keys Attending Unavailable HIGHLANDER, SADE Keys Admitting Unavailable WEST, DR NICKI Gale Consulting Unavailable KAFTAN, DR Isatu LUGO Primary Care Unavailable HIGHLANDER, SADE Keys Consulting Unavailable KAFTAN, DR Isatu LUGO Primary Care Unavailable TANI ., CHASITY Consulting Unavailable TANI ., CHASITY Attending Unavailable TANI ., CHASITY Admitting Unavailable NANCY BELLE Consulting Unavailable KAFTAN, DR Isatu LUGO Primary Care Unavailable PAY ., DR MCDONALD Consulting Unavailable PAY ., DR MCDONALD Attending Unavailable PAY ., DR MCDONALD Admitting Unavailable KAFTAN, DR Isatu LUGO Primary Care Unavailable HIGHLANDER, SADE Keys Attending Unavailable HIGHLANDER, SADE Keys Admitting Unavailable ZIEBER, DR ZAIDA Braden Consulting Unavailable HIGHLANDER, SADE Keys Consulting Unavailable KAFTAN, DR Isatu LUGO Primary Care Unavailable HAY ., DR BAEZA Consulting Unavailable HAY ., DR BAEZA Attending Unavailable HAY ., DR BAEZA Admitting Unavailable HIGHLANDER, SADE Keys Attending Unavailable HIGHLANDER, SADE Keys Admitting Unavailable KAFTAN, DR Isatu LUGO Primary Care Unavailable ZIEBER, DR ZAIDA Braden Consulting Unavailable HIGHLROBERTA, SADE Keys Consulting Unavailable KAREEM, NIECY Attending Unavailable KAREEM, NIECY Admitting Unavailable KAFTAN, DR Isatu LUGO Primary Care Unavailable ZIEBER, DR ZAIDA Braden Consulting Unavailable KAREEM, NIECY Consulting Unavailable KAREEM, NIECY Admitting Unavailable KAREEM, NIECY Attending Unavailable KAFTAN, DR Isatu LUGO Primary Care Unavailable ZIEBER, DR ZAIDA Braden Consulting Unavailable KAREEM, NIECY Consulting Unavailable KAREEM, NIECY Admitting Unavailable KAREEM, NIECY Attending Unavailable WEST, DR NICKI Gale Consulting Unavailable KAFTAN, DR Isatu LUGO Primary Care Unavailable KAREEM, NIECY Consulting Unavailable JNENIFER GARCIA Attending Unavailable HAY ., DR BAEZA Consulting Unavailable JENNIFER GARCIA Admitting Unavailable KAFTAN, DR Isatu LUGO Primary Care Unavailable JENNIFER GARCIA Consulting Unavailable HIGHLANDER, SADE Keys Consulting Unavailable TANI ., CHASITY Attending Unavailable [...] LUGO Primary Care Unavailable ZICLARISAER, DR ZAIDA Braden Consulting Unavailable NIECY DURON Unavailable DO Anibal Valle Emergency Provider Unavailable Unavailable Annette Harris Attending Unavailable Shannon [...] arben Willams Jr., Eliceo LOAIZA Primary Care [facility] WINSTON HANNAH Referring Unavailable ELICEO WILLAMS [...] PAULINE CHRISTENSEN Attending Unavailable DALIA JENKINS ELICEO Braden Referring Unavailable DALIA JENKINSELICEO Primary Care Unavailable GIANA MORALES Attending Unavailable CARMEN DORSEY Attending Unavailable CRAMEN DORSEY Attending Unavailable ANNETTE SWANSON Attending Unavailable KAILA, CARMEN Attending Unavailable TIMOTEO SIOMARA Referring Unavailable MATTEO QUINONES Attending Unavailable KAILA, CARMEN Attending Unavailable KAILA, CARMNE Attending Unavailable KAILA, CARMEN Attending Unavailable KAILA, [...] SWANSON Attending Unavailable GIANA MORALES Attending Unavailable Dalia Morales DO, George R Primary Care Provider ELICEO WILLAMS Attending Unavailable ELICEO WILLAMS Attending Unavailable ELICEO WILLAMS Attending Unavailable ELICEO WILLAMS Referring Unavailable EAGLE LEE Attending Unavailable ELICEO WILLAMS Referring Unavailable RON KING Attending Unavailable ELICEO WILLAMS Referring Unavailable EAGLE LEE Referring Unavailable RON KING Referring Unavailable Allergies Allergy Classification Reported Allergen(s) Allergy Type Date of Onset Reaction(s) Facility (20 sources) risperiDONE; Translations: [RisperDAL TABS] Drug Allergy 0 Intolerance, Other (See Comments) [facility] (1 source) oxyCODONE Drug Allergy [facility] (1 source) risperiDONE Drug Allergy [facility] (1 source) risperiDONE Drug Allergy 3 [facility] (3 sources) POISON LAITH EXTRACT; Translations: [POISON LAITH EXTRACT] Drug Allergy 3 Rash [facility] (1 source) POISON LAITH; Translations: [POISON LAITH] Propensity to adverse reactions to drug (disorder) 2 [facility] Rep[facility] Medications Current Medications Medication Drug [...] 1 tablet by mouth every twelve hours [id number] 200 actuat albuterol 0.09 mg/actuat metered dose inhaler (20 sources) beta2-Adrenergic Agonist Start: 06-05-2023 take 1 puff(s) by inhalation every four to six hours Albuterol Sulfate Active 2 PUFF INHALATION EVERY 4-6 HOURS June 05, 2023 12:00am Start: 08-26-2022 albuterol (PRO VENTIL,VENTOLIN) nebulizer solution 2.5 mg Start: 09-23-2021 End: 11-17-2022 take 2 puff(s) by mouth every four hours albuterol HFA (PROVENTIL HFA, VENTOLIN HFA) 90 mcg/actuation inhaler inhale 2 puffs by mouth INTO THE LUNGS every 4 hours if needed 0 09/23/2021 11/17/2022 Discontinued Comment on above: inhale 2 puffs by mo [facility] INTO THE LUNGS every 4 hours if needed alendronic acid 70 mg oral tablet (1 source) Bisphosphonate Start: 023 take 1 tablet by mouth every week Alendronate (Fosamax) 70 mg Tablet Active 70 MG PO every week June 05, 2023 12:00am betamethasone 0.5 mg/ml topical cream (1 source) Corticosteroid betamethasone dipropionate 0.05 % cream Apply 1 Application topically in the morning and 1 Application before bedtime. 0 Active cholecalciferol 0.05 mg oral capsule (20 sources) [...] Take 1,000 Units by mouth once daily. 168 hr cloNIDine 0.01155 mg/hr transdermal system (1 source) Central alpha-2 Adrenergic Agonist Start: cloNIDine (CATAPRES-TTS) 0.1 mg/[address] 1 patch on the skin once a week. 0 09/27/2023 Active daridorexant 50 mg tablet (1 source) take 1 tablet by mouth once daily daridorexant 50 mg tablet Take 50 mg by mouth nightly. 0 Active DayVigo (13 sources) DayVigo Not-Taki ng Dexlansoprazole [...] mouth. Inhale once daily 0 07/20/2023 Active Start: 05-31-2022 take 1 puff(s) by inhalation in the morning fmhceowlntb-lyoeytumf-offdspvb (TRELEGY ELLIPTA) 100-62.5-25 mcg blister with device Indications: Asthma, unspecified asthma severity, unspecified whether complicated, unspecified whether persistent Inhale 1 puff in the morning. 60 each 5 05/31/2022 Active take 1 puff(s) by inhalation once daily xvfwhyhpkbq-nchglhufl-irfulwwf (TRELEGY ELLIPTA) 100-62.5-25 mcg Inhale 1 Puff as instructed once daily. 0 Active take 1 puff(s) by inhalation once daily Trelegy Ellipta 100-62.5-25 MCG/INH 1 pu ff Inhalation Once a day Not-Taking Comment on above: Inhale 1 Puff as ins tructed once daily. 1.5 ml fremanezumab-vfrm 150 mg/ml auto-injector (13 sources) Start: 07-19-2023 fremanezumab-vfrm (AJOVY AUTOINJECTOR) 225 mg/1.5 mL Indications: Other migraine without status migrainosus, not intractable inject 1 AND 1/2 milliliters subcutaneously every 28 DAYS 1.5 mL 5 10/23/2023 Active Start: 06-05-2023 Fremanezumab-V frm (Ajovy Autoinjector) 225 mg/1.5 mL auto-injector Active 225 MG SUBCUT every month June 05, 2023 12:00am Comment on above: inject 1 AND 1/2 mil liliters subcutaneously every 28 DAYS inulin 200 mg / lactobacillus rhamnosus gg [id number] unt oral capsule (1 source) Start: End: take 1 capsule by mouth once daily lactobacillus rhamnosus (CULTURELLE) 10 billion cell -200 mg capsule Take 1 capsule by mouth once daily. 30 capsule 0 06/07/2022 07/07/2022 Active Comment on above: Take 1 capsule by [facility] once daily. iv contrast (will be [...] Toradol per 15 mg Jan, 60 mg lisdexamfetamine dimesylate 30 mg oral capsule (5 sources) Central Nervous System Stimulant Start: 10-20-2023 VYVANSE 30 mg capsule Take 1 capsule (30 mg total) by mouth. 0 10/20/2023 Active Start: 02-18-2020 End: 06-05-2023 take 1 capsule by mouth once daily Lisdexamfetamine (Vyvanse) 40 mg Capsule Discontinued 40 MG PO Daily February 18, 2020 12:00am June 05, 2023 10:13am LORazepam 1 mg oral tablet (10 sources) [...] 20 mg oral tablet (10 sources) Start: 1 take 1 tablet by mouth every twelve hours ramelteon 8 mg oral tablet (16 sources) Melatonin Receptor Agonist Start: 2 End: 3 take 1 tablet by mouth once daily at bedtime ramelteon (ROZEREM) 8 mg tablet Take 1 tablet by mouth daily at bedtime. 30 tablet 2 10/14/2022 11/21/2022 Discontinued Comment on above: Take 1 tablet by yancy th daily at bedtime. rimegepant 75 mg disintegrating oral tablet (1 source) Start: 3 rimegepant 75 mg tablet,disintegratin g Indications: Other migraine without status migrainosus, not intractable Dissolve 1 tablet on tongue daily as needed (Migraine headache). 12 tablet 4 10/23/2023 Active rOPINIRole 1 mg oral tablet (20 sources) Nonergot Dopamine Agonist Start: 3 take 1 tablet by mouth once daily in the morning rOPINIRole (REQUIP) [...] 2 mg PM 0 09/19/2021 Active Start: 11-29-2019 take 1 tablet by yancy th once daily at bedtime ROPINIRole (REQUIP) 2 MG tablet Take 1 tablet by mouth daily. At bedtime 0 08/01/2023 Active Start: 06-19-2019 take 2 mg by [...] Start: 03-04-2022 take 4 tablets by mo [facility] once daily at bedtime traZODone (DESYREL) 50 mg tablet Take 200 mg by mouth daily at bedtime. 0 03/04/2022 Active Start: 03-04-2022 take 3 tablets by [facility] once daily at bedtime traZODone (DESYREL) 50 mg tablet Take 150 mg by mouth daily at bedtime. 0 03/04/2022 Active Start: 11-02-2018 End: 12-19-2018 Trazodone Discontinued TABLE T November 02, 2018 1:00am December 19, 2018 1:17pm Start: 11-02-2018 End: 12-19-2018 Trazodone Discontinued TABLE T November 02, 2018 1:00am December 19, 2018 1:17pm take 2 tablets by [facility] at bedtime traZODone HCl - 100 MG Oral Tablet TAKE 2 TABLETS AT BEDTIME. Quantity: 0 Refills: 0 Ordered: 13-Jun-2023 DO Active take 1 tablet by [facility] at bedtime traZODone HCl - [...] Comment on above: Take 2 tablets by [facility] every 6 hours as needed for [...] oral tablet (4 sources) Benzodiazepine Start: 09-13-20 17 End: 10-01-20 18 take 1 tablet by mouth three times daily Alprazolam Discontinued 1 TAB PO Three times daily September 13, 2017 1:00am October 01, 2018 10:40am amitriptyline hydrochloride 25 mg oral tablet (4 sources) Tricyclic Antidepressant Start: 02-18-20 End: 06-05-20 23 take 125 mg by mouth once daily Amitriptyline Discontinued 125 MG PO Daily February 18, 2020 12:00am June 05, 2023 10:13am ARIPiprazole 30 mg oral tablet (20 sources) Atypical Antipsychotic Start: 09-27-20 21 take 1 tablet by mouth once daily ARIPiprazole (ABILIFY) 30 mg tablet Take 30 mg by mouth once daily. 0 09/27/2021 Active Start: 09-13-2017 End: 10-01-2018 take 1 tablet by mouth once daily in the morning Aripiprazole (Abilify) 20 mg Tablet Discontinued 1 TAB PO Every morning September 13, 2017 1:00am October 01, 2018 10:40am ARIPiprazole (AB ILIFY MAINTENA) 300 mg suspension,extended rel recon Inject 1.5 mL (300 mg total) into the appropriate muscle every 28 days. 0 Active Comment on above: Take 30 mg by [...] mg capsule Discontinued 500 MG PO Q8H 26 05September 20, 2017 1:00am October 01, 2018 10:40am cetirizine hydrochloride 5 mg oral tablet (4 sources) Histamine-1 Receptor Antagonist Start: 10-15-20 18 End: 02-13-20 19 Cetirizine Discontinued 1 TAB PO As [...] breakfast docusate sodium 50 mg / sennosides, nursing home 8.6 mg oral tablet (4 sources) Start: [...] Fluticasone Propionate (Flonase Allergy Relief) 50 mcg/actuation [place],Suspension Discontinued 2 SPRAY INTRANASAL Daily October 15, 2018 1:00am June 18, 2019 3:04pm Comment on above: Use 1 [place] in each nostril once daily. Fluticasone Propion-Salmeterol [...] 15, 2018 12:00am June 18, 2019 2:04pm 1 ml galcanezumab-gnlm 120 mg/ml prefilled syringe (20 sources) galcanezumab-gnl m (EMGALITY SYRINGE) 120 mg/mL syringe Inject subcutaneously once every month. Do not shake. 0 Active Comment on above: Inject subcutaneousl y once every month. Do not shake. hydrOXYzine hydrochloride 50 mg oral tablet (8 sources) Antihistamine Start: 2019 End: 2022 take 50 mg by mouth once daily [...] as needed for pain. lactobacillus rhamnosus gg [id number] unt oral capsule (20 sources) Start: 06-09-2022 [...] Start: 12-27-2021 take 1 capsule by mo [facility] once daily lactobacillus rhamnosus (CULTURELLE) 10 billion cell capsule Take 1 capsule by mouth once daily. 30 capsule 0 12/27/2021 Active Comment on above: Take 1 capsule by mo [facility] once daily. lamoTRIgine 200 mg oral tablet (9 sources) Mood Stabilizer, Anti-epileptic Agent Start: 12-19-2018 End: 06-05-2023 take 1 tablet by mouth once daily Lamotrigine (Lamictal) 200 mg Tablet Discontinued 200 MG PO Daily December 19, 2018 1:00am June 05, 2023 10:13am Start: 10-15-2018 End: 12-19-2018 take 1 tablet by mouth twice daily Lamotrigine Discontinued 1 TAB PO Twice daily October 15, 2018 1:00am December 19, 2018 1:14pm take 2 tablets by [facility] in the morning lamoTRIgine (LaMICtal) 25 mg tablet Take 2 tablets (50 mg total) by mouth in the morning. 0 Active linaclotide (4 sources) Guanylate Cyclase-C Agonist Start: 10-01-2018 End: 06-19-2019 take 145 ug by mouth once daily Linaclotide Discontinued 145 MCG PO Daily October 01, 2018 1:00am June 19, 2019 1:23pm Start: 10-01-2018 End: 06-19-2019 take 145 ug by mouth once daily Linaclotide Discontinued 145 MCG PO Daily October 01, 2018 12:00am June 19, 2019 12:23pm LOCM iohexol (OMNIPAQUE 300 MG/ML) injection 100 [...] on above: Take 2 tablets by mo [facility] as directed. Take 2 tablet at 6pm, [...] on above: Take 1 capsule by mo [facility] twice daily. nystatin [id number] unt/ml topical cream (20 sources) Polyene Antifungal [...] June 05, 2023 10:13am polyethylene glycol [id number] [id number] mg powder for oral solution (3 sources) [...] Comment on above: [facility] psyllium 520 mg oral capsule (3 sources) Start: 12-27-2021 End: 02-08-2022 psyllium Husk (METAMUCIL) 0.52 gram capsule Take 1 capsule by mouth as directed. As needed for constipation 0 12/27/2021 02/08/2022 Discontinued (Course of therapy completed) Comment on above: Take 1 capsule by mo [facility] as directed. As needed for constipation QUEtiapine [...] Comment on above: Take 2 tablets by [facility] three times daily as needed. 50 ml [...] Comment on above: Take 1 tablet by [facility] two times a day for 3 days. tiZANidine 2 mg oral tablet (20 sources) Central alpha-2 Adrenergic Agonist Start: 04-05-2022 End: 11-17-2022 take 1 tablet by mouth every eight hours as needed tiZANidine (ZANAFLEX) 2 mg tablet Take 1 tablet by mouth every 8 hours as needed. 30 tablet 0 04/05/2022 11/17/2022 Discontinued Comment on above: Take 1 tablet by [facility] every 8 hours as needed. Trelegy Ellipta [...] Start: 08-19-2021 KENALOG - 10 m g Aug, 10 mg vitamin b12 1 mg oral tablet (20 sources) Vitamin B12 take 1 tablet by mouth once daily cyanocobalamin (VITAMIN B-12) 1,000 mcg tab Take 1,000 mcg by mouth once daily. 0 Active Comment on above: Take 1,000 mcg by [facility] once daily. vortioxetine 10 mg oral tablet (20 sources) End: 3 take 1 tablet by mouth [...] Active Problems Problem Classification Problem Date Documented Da te Episodic/Chronic Acute and chronic tonsillitis (2 sources) Chronic tonsillitis; Translations: [Chronic tonsillitis] Onset: 1 Resolved: 2 07-07-2022 Chronic Anxiety disorders (7 sources) Anxiety; Translations: [Anxiety state, unspecified] Onset: 2 Chronic Asthma (20 sources) Asthma; Translations: [Unspecified asthma, uncomplicated] Onset: 1 10-15-2021 Chronic Attention-deficit, conduct, and disruptive behavior disorders (1 source) Attention-deficit hyperactivity disorder, unspecified type; Translations: [ADHD UNSPECIFIED TYPE] Onset: 3 Chronic Bacterial infection; unspecified site (1 source) Personal history of Methicillin resistant Staphylococcus aureus infection; Translations: [PERS HX METHICILLIN RSIST STAPH INF] Onset: 3 Episodic Conditions associated with dizziness or vertigo (7 sources) Postural dizziness; Translations: [Dizziness and giddiness] 02-18-2020 Episodic Esophageal disorders (20 sources) Gastroesophageal reflux disease; Translations: [Gastro-esophageal reflux disease without esophagitis] Onset: 1 10-15-2021 Chronic Essential hypertension (20 sources) Hypertensive disorder; Translations: [Essential (primary) hypertension] Onset: 3 10-08-2020 Chronic Fluid and electrolyte disorders (1 source) Dehydration; Translations: [DEHYDRATION] Onset: 3 Episodic Gastrointestinal hemorrhage (3 sources) Gastrointestinal hemorrhage; Translations: [Hemorrhage of gastrointestinal tract, unspecified] Episodic Genitourinary symptoms and ill-defined conditions (5 sources) Incomplete emptying of bladder; Translations: [Retention of urine, unspecified] 07-31-2023 Episodic Headache; including migraine (4 sources) Migraine, unspecified, not intractable, without status migrainosus; Translations: [Other migraine, not intractable, without status migrainosus] Onset: 1 01-21-2021 Chronic Headache; including migraine (4 sources) Headache; including migraine; Translations: [HEADACHE UNSPECIFIED] Onset: 3 Menopausal disorders (20 sources) Genitourinary syndrome of menopause; Translations: [Other specified menopausal and perimenopausal disorders] Onset: 1 08-04-2021 Chronic Miscellaneous mental health disorders (3 sources) Primary insomnia; Translations: [Primary insomnia] Onset: 0 Chronic Mood disorders (20 sources) Bipolar I disorder; Translations: [Bipolar disorder, unspecified] Onset: 2 10-08-2020 Chronic Mycoses (2 sources) Candidiasis of skin; Translations: [Candidiasis of skin and nail] Episodic Nonspecific chest pain (8 sources) Chest pain; Translations: [Chest pain, unspecified] Onset: 3 08-15-2021 Episodic Osteoarthritis (20 sources) Arthritis of right acromioclavicular joint; Translations: [Primary osteoarthritis, right shoulder] Onset: 0 09-29-2020 Chronic Other acquired deformities (5 sources) Contracture, right ankle; Translations: [CONTRACTURE RIGHT ANKLE] Onset: 2 Chronic Other aftercare (1 source) Other intermediate manager (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; Translations: [OTH SENIOR CARE CURRENT DRUG THERAPY] Onset: 3 Episodic Other connective tissue disease (5 sources) Pain in right foot; Translations: [PAIN IN RIGHT FOOT] Onset: 3 Episodic Other disorders of stomach and duodenum (2 sources) Pylorospasm; Translations: [Pylorospasm, not elsewhere classified] Episodic Other disorders of stomach and duodenum (2 sources) Nonulcer dyspepsia; Translations: [Functional dyspepsia] Episodic Other gastrointestinal disorders (1 source) Ileostomy present; Translations: [Encounter for attention to ileostomy] Chronic Other gastrointestinal disorders (20 sources) Chronic idiopathic constipation; Translations: [Chronic idiopathic constipation] Onset: 2 Chronic Other gastrointestinal disorders (20 sources) Irritable bowel syndrome; Translations: [Irritable bowel syndrome without diarrhea] Chronic Other gastrointestinal disorders (1 source) Chronic idiopathic constipation; Translations: [Chronic idiopathic constipation] Onset: 2 Chronic Other gastrointestinal disorders (1 source) Diarrhea; [...] legs syndrome; Translations: [Restless legs syndrome] Onset: 2 Chronic Other hereditary and degenerative nervous system conditions (1 source) Restless legs; Translations: [Restless legs syndrome] Onset: 0 07-07-2020 Chronic Other lower respiratory disease (20 sources) Dyspnea; Translations: [Shortness of breath] 08-15-2021 Episodic Other nervous system disorders (20 sources) Chronic pain; Translations: [Other chronic pain] Chronic Other nervous system disorders (12 sources) Other chronic pain; Translations: [Other chronic pain G89.29] Onset: 1 Resolved: 2 Chronic Other non-traumatic joint disorders (5 sources) Pain in right ankle and joints of right foot; Translations: [PAIN IN RIGHT ANKLE] Onset: 2 Episodic Other nutritional; endocrine; and metabolic disorders [...] disease (1 source) Allergic rhinitis, unspecified Onset: 2 Resolved: 2 Chronic Other upper respiratory disease (1 source) Allergic rhinitis; Translations: [Allergic rhinitis, unspecified] Onset: 6 09-07-2023 Chronic Other upper respiratory infections (1 source) Chronic sinusitis; Translations: [Chronic sinusitis, unspecified] Onset: 2 07-07-2022 Chronic Other upper respiratory infections (4 sources) Upper respiratory infection; Translations: [Acute upper respiratory infection, unspecified] 09-24-2017 Episodic Personality disorders (2 sources) Borderline personality disorder; Translations: [Borderline personality disorder] Onset: 3 Chronic Residual codes; unclassified (20 sources) Obstructive sleep apnea syndrome; Translations: [Obstructive sleep apnea (adult) (pediatric)] Onset: 3 Chronic Residual codes; unclassified (1 source) Obstructive sleep apnea (adult) (pediatric); Translations: [CHUCKIE (obstructive sleep apnea)] Onset: 3 Chronic Residual codes; unclassified (2 sources) Postoperative state; Translations: [Other specified postprocedural states] Episodic Residual codes; unclassified (3 sources) Pain, unspecified Episodic Residual codes; unclassified (1 source) Acquired absence of both cervix and uterus; Translations: [ACQUIRED ABSENCE BOTH CERVIX AND UTERUS] Onset: 3 Episodic Spondylosis; intervertebral disc disorders; other back problems (20 sources) Degeneration of cervical intervertebral disc; Translations: [Other cervical disc degeneration, unspecified cervical region] Onset: 8 Resolved: 2 Chronic Spondylosis; intervertebral disc disorders; other back problems (3 sources) Low back pain; Translations: [Cervicalgia] Onset: 1 Resolved: 1 Episodic Unclassified (1 source) PERSONAL HISTORY OF COVID-19; Translations: [PERSONAL HISTORY OF COVID-19] Onset: 3 Unclassified (3 sources) LOW BACK PAIN, UNSPECIFIED; Translations: [LOW BACK PAIN, UNSPECIFIED] Onset: 3 Unclassified (1 source) CONTACT W/AND (SUSP) EXPOS COVID-19; Translations: [CONTACT W/AND (SUSP) EXPOS COVID-19] Onset: 2 Unclassified (1 source) Posterior tibial tendinitis, right leg; Translations: [Posterior tibial tendinitis, right leg] Onset: 3 Unclassified (1 source) Pain in right shoulder; Translations: [Pain in right shoulder] Onset: 2 Unclassified (2 sources) Telehealth Audio/video Visit; Translations: [Telehealth Audio/video Visit] Onset: 3 Urinary tract infections (1 source) Chronic interstitial cystitis; Translations: [Interstitial cystitis (chronic) without hematuria] Onset: 3 09-07-2023 Chronic Urinary tract infections (20 sources) Urinary tract infectious disease; Translations: [Urinary tract infection, site not specified] Onset: 2 02-18-2020 Episodic Viral infection (4 sources) Disease caused [...] Onset: 09-28-2022 Episodic Allergic reactions (1 source) Atopic dermatitis; Translations: [Atopic dermatitis, unspecified] Onset: 04-09-2020 Resolved: 09-07-2023 09-07-2023 Chronic Allergic reactions (1 source) Unspecified contact dermatitis, unspecified cause; Translations: [Contact dermatitis, unspecified contact dermatitis type, unspecified trigger L25.9] Onset: 08-19-2021 Resolved: 08-19-2021 Episodic Complications of surgical procedures or medical care (4 sources) Infection following a procedure, other surgical site, initial encounter; Translations: [INFECT FOL PROC OTH SURG SITE INIT] Onset: 04-17-2022 Episodic Disorders of lipid metabolism (2 sources) Pure hypercholesterolemia , unspecified; Translations: [Hyperlipidemia] Onset: 03-08-2023 Resolved: 09-07-2023 09-07-2023 Chronic Immunizations and screening for infectious disease (1 source) Contact with and (suspected) exposure to other viral communicable diseases; Translations: [Contact with and (suspected) exposure to other viral communicable diseases Z20.828] Onset: 08-13-2021 Resolved: 08-13-2021 Episodic Malaise and fatigue (9 sources) Fatigue; Translations: [Other malaise and fatigue] Onset: 04-01-2021 Episodic Mood disorders (1 source) Mood disorders Onset: 10-23-2023 10-23-2023 Nausea and vomiting (20 sources) Nausea and vomiting; Translations: [Nausea with vomiting, unspecified] Onset: 05-10-2022 Resolved: 05-10-2022 Episodic Nutritional deficiencies (1 source) Cobalamin deficiency; Translations: [Deficiency of other specified B group vitamins] Onset: 10-23-2022 10-23-2022 Episodic Other aftercare (20 sources) Surgical follow-up; [...] (20 sources) Gastroparesis syndrome; Translations: [Gastroparesis] Onset: 11-24-2021 10-08-2020 Episodic Other disorders of stomach and duodenum (4 sources) Gastroparesis; Translations: [Gastroparesis] Onset: 10-08-2020 Episodic Other gastrointestinal disorders (20 sources) Chronic constipation; Translations: [Other constipation] Onset: 03-28-2022 04-05-2022 Episodic Other gastrointestinal disorders (2 sources) Constipation, unspecified; Translations: [Constipation, unspecified] Onset: 07-25-2023 Episodic Other gastrointestinal disorders (2 sources) Diarrhea, unspecified; Translations: [Diarrhea, unspecified] Onset: 07-25-2023 Episodic Other infections; including parasitic (20 sources) Personal history of other infectious and parasitic diseases; Translations: [History of 2019 novel coronavirus disease (COVID-19)] Onset: 09-07-2023 Resolved: 09-07-2023 10-15-2021 Episodic Other nervous system disorders (20 sources) Incoordination; Translations: [Unspecified lack of coordination] Onset: 01-18-2022 Episodic Other nervous system disorders (4 sources) Other acute postprocedural pain; Translations: [OTHER ACUTE POSTPROCEDURAL PAIN] Onset: 10-19-2022 Episodic Other non-epithelial cancer of skin (1 source) Basal cell carcinoma of chest wall; Translations: [Basal cell carcinoma of skin of other part of trunk] Onset: 04-04-2023 Resolved: 09-07-2023 09-07-2023 Episodic Other non-traumatic joint disorders (3 sources) [...] D/O RT ANKLE FOOT] Onset: 11-03-2022 Episodic Other upper respiratory disease (1 source) Nasal congestion; Translations: [Nasal congestion] Onset: 01-11-2021 01-11-2021 Episodic Residual codes; unclassified (20 sources) History [...] Test Name Value Interpretation Reference Range Facility BI MAMMOGRAM SCREENING TOMOS YNTHESIS BILATERALon 10-31-2023 BI MAMMOGRAM SCREENING TOMOSYNTHESIS BILATERAL This is a summary report. The complete report is available in the patient's medical record. If you cannot access the medical record, please contact the sending organization for a detailed fax or copy. EXAMINATION: BI MAMMOGRAM SCREENING TOMOSYNTHESIS BILATERAL CLINICAL HISTORY: annual breast cancer screening COMPARISON: September 28, 2022, September 14, 2022. RESULT: Digital mammography and 3D tomosynthesis of bilateral breasts was performed. There are scattered areas of fibroglandular density. Overall appearance is stable. There is no suspicious mass, asymmetry, architectural distortion, or calcification. IMPRESSION: BIRADS 1 - Negative Follow-up: Routine Screening Mamm . Board Certified Radiologists. Accredited by the ACR and FDA. MAMMOGRAPHY IS VERY IMPORTANT TO YOUR HEALTH. THE [employer] [employer] GUIDELINES RECOMMEND THAT WOMEN 40 YEARS OF AGE AND OLDER SHOULD HAVE A MAMMOGRAM EVERY YEAR. A REMINDER LETTER WILL BE SENT AT THE APPROPRIATE TIME. THIS FACILITY UTILIZES A REMINDER SYSTEM TO ENSURE ALL PATIENTS RECEIVE REMINDER NOTIFICATIONS AT THE APPROPRIATE TIME BASED ON THE RECOMMENDATIONS OF THIS EXAM. THIS INCLUDES REMINDERS FOR ROUTINE SCREENING MAMMOGRAMS, DIAGNOSTIC MAMMOGRAMS IN WHICH THE PATIENT IS ASKED TO RETURN FOR ADDITIONAL VIEWS, OR OTHER BREAST IMAGING INTERVENTIONS WHEN APPROPRIATE. THE PATIENT WILL BE PLACED IN THE APPROPRIATE REMINDER SYSTEM INCLUDING A REMINDER AT THE APPROPRIATE TIME FOR ANY PENDING ADDITIONAL VIEWS. TRANSCRIBED BY: ELECTRONICALLY SIGNED BY: Quinton Carson MD Normal Not Available US GALLBLADDERon 10-27-2023 US GALLBLADDER EXAMINATION: US [...] DO Normal Not Available Documentationon 10-12-2023 Documentation [id number] Darrian Leal 1970 F Date Provider Department Center 10/12/2023 GIANA JAMES [facility] Gerardo Heal No family history on file Normal [facility] CNOVon 10-10-2023 CNOV Office Visit (SHERON ) ----- MARY LEAL ([id number]) 1970 F Date Time Provider Department 10/10/23 [...] PFSH obtained by others. Pam Wang MD Ceramics Test Engineer offered: Patient declines. OBJECTIVE: BP 102/60 General: [...] would like to move forward with PNE. Timetovisittronic packet given to patient today to review. [...] which included preparing to see the patient, [id number] patient care, completing clinical (more content not included)... Normal [facility] XR CHEST 2 VIEWSon 3 XR CHEST 2 VIEWS FINDINGS: Comparison, June 09, 2021. Intervertebral disc space device again identified lower cervical spine. Cardiopericardial silhouette normal. Pulmonary vasculature normal. Lungs clear. IMPRESSION: Impression: No acute cardiopulmonary disease. ELECTRONICALLY SIGNED BY: Rigo Strauss MD Normal Not Available Orders Onlyon 09-19-2023 Orders Only [id number] Darrian Leal 1970 F Date Provider Department Center 09/19/2023 GIANA JAMES [facility] Gerardo Heal No family history on file Normal [facility] CNPNon 09-12-2023 MARIAN Telephone (Q) ----- MARY LEAL ([id number]) 1970 F Date Time Provider Department 09/12/23 [...] which included preparing to see the patient, [id number] patient care, completing clinical documentation, obtaining and/or [...] Office will call to schedule cystoscopy. Urogynecology [facility] Main provided: Pam Wang Staff Physician, Department [...] Diagnosis:History of suburethral sling procedure [Z98.890] Order(s):CYSTOSCOPY [facility] [[id number]] Order #: [id number] Prescriptions as of 09/12/2023 - atenolol (TENORMIN) [...] Take 1,000 (more content not included)... Normal [facility] CNOVon 09-11-2023 CNOV Office Visit (UROSMN ) ----- MARY LEAL ([id number]) 1970 F Date Time Provider Department 09/11/23 [...] Jenifer Barry RN 09/11/2023 11:37 AM Signed [facility] UR[facility] [...] allergy: No Females- Is patient : No Ceramics Test Engineer offered:Patient declines B/O UA: YES DIP: UROFLOWMETRY [...] Jairon Lai MD 09/11/2023 1:18 PM Signed [facility] CENTER FOR [...] Jairon Lai MD Referring Provider: PAM WANG [[id number]] Allergies As of Date: 09/11/2023 Noted Allergy [...] milliliters subcut (more content not included)... Normal [facility] Orders Onlyon 09-01-2023 Orders Only [id number] Darrian Leal 1970 Date Provider Department [place] 09/01/2023 GIANA JAMES [facility] PS[facility] Gerardo Heal No family history on file Normal [facility] Behavioral Health Telemedici neon 08-23-2023 Behavioral Health Telemedicine [id number] Mary Leal 1970 Date Provider Department [place] 08/23/2023 GIANA JAMES [facility] Gerardo Heal No family history on file Level of Service:[id number] [place] OFFICE/OUTPATIENT ESTABLISHED MOD MDM 30-39 MIN Normal [facility] Orders Onlyon 08-21-2023 Orders Only [id number] Darrian Leal en 1970 F Date Provider Department Center 08/21/2023 GIANA JAMES [facility] PSYCH Gerardo Heal No family history on file Normal [facility] BASIC METABOLIC PANELon 10-0 Anion gap [Moles/Vol] 1 mmol/L Low 8-12 [facility] Comment on above: Performed By: #### 4 [id number], [id number], [id number], [id number] #### [address] [place], [place] [address] Calcium [Mass/Vol] 9.2 mg/dL Normal 8.4-10.4 [facility] Comment on above: Performed By: #### 4 [id number], [id number], [id number], [id number] #### [address] [place], [place] [address] Chloride [Moles/Vol] 105 mmol/L Normal 96-109 [facility] Comment on above: Performed By: #### 4 [id number], [id number], [id number], [id number] #### [address] [place] [address] [facility] CO2 [Moles/Vol] 32 mmol/L High 22-30 [facility] Comment on above: Performed By: #### 4 [id number], [id number], [id number], [id number] #### [address] [place] [address] [facility] Creatinine [Mass/Vol] 0.67 mg/dL Normal 0.52-1.04 [facility] Comment on above: Performed By: #### 4 [id number], [id number], [id number], [id number] #### [facility] [address] [place], [place] [address] GLOMERULAR FILTRATION RATE ML/MIN/1.73 SQ M.PREDICTED >90.0 Normal >=60.0 [facility] Comment on above: Result Comment: eGFR calculation [...] Kidney Int Suppl.2013;3:1-150 Performed By: #### 4 [id number], [id number], [id number], [id number] #### [address] [place], [place] [address] Glucose [Mass/Vol] 104 mg/dL High 65-100 [facility] Comment on above: Performed By: #### 4 [id number], [id number], [id number], [id number] #### [address] [place] [address] [facility] Potassium [Moles/Vol] 4.6 mmol/L Normal 3.6-5.1 [facility] Comment on above: Performed By: #### 4 [id number], [id number], [id number], [id number] #### [address] [place] [address] [facility] Sodium [Moles/Vol] 138 mmol/L Normal 135-147 [facility] Comment on above: Performed By: #### 4 [id number], [id number], [id number], [id number] #### [address] [place] [address] [facility] Urea nitrogen [Mass/Vol] 16 mg/dL Normal 8-26 [facility] Comment on above: Performed By: #### 4 [id number], [id number], [id number], [id number] #### [address] [place] [address] [facility] Basic metabolic panel aka Ch em 8on 08-12-2023 Anion gap [Moles/Vol] 1 mmol/L Low 8 - 12 mmol/L [facility] Calcium [Mass/Vol] 9.2 mg/dL 8.4 - 10. 4 mg/dL [facility] Calcium hydrogen phosphate dihydrate crystals LM Ql (Urine sed) 16 mg/dL 8 - 26 mg/dL [facility] Chloride [Moles/Vol] 105 mmol/L 96 - 10 9 mmol/L [facility] CO2 (BldMV) [Moles/Vol] 32 mmol/L High 22 - 30 mmol/L [facility] Creatinine [Mass/Vol] 0.67 mg/dL 0.52 - 1.04 mg/dL [facility] GFR/1.73 sq M.predicted MDRD (S/P/Bld) [Vol rate/Area] - PINF [facility] Comment on above: eGFR calculation bas ed [...] 104 mg/dL High 65 - 100 mg/dL [facility] Interpretation and review of laboratory results Abnormal [facility] Potassium [Moles/Vol] 4.6 mmol/L 3.6 - 5.1 mmol/L [facility] Sodium [Moles/Vol] 138 mmol/L 135 - 147 mmol/L [facility] CBC AND DIFFERENTIALon 08-12 ABSOLUTE BASOPHIL 0.0 x10*3/uL Normal 0.0-0.1 [facility] Comment on above: Performed By: #### 4 [id number] #### [address] ABSOLUTE EOSINOPHIL 0.1 x10*3/uL Normal 0.1-0.3 [facility] Comment on above: Performed By: #### 4 [id number] #### [address] ABSOLUTE IMMATURE GRANULOCYTES 0.0 x10*3/uL Normal 0.0-0.1 [facility] Comment on above: Performed By: #### 4 [id number] #### [address] ABSOLUTE LYMPH 1.6 x10*3/uL Normal 1.2-3.3 [facility] Comment on above: Performed By: #### 4 [id number] #### [address] ABSOLUTE MONO 0.3 x10*3/uL Normal 0.2-0.6 [facility] Comment on above: Performed By: #### 4 [id number] #### [address] ABSOLUTE NEUTROPHIL 3.1 x10*3/uL Normal 2.4-6.6 [facility] Comment on above: Performed By: #### 4 [id number] #### [address] Basophils/100 WBC (Bld) 0.8 % Normal [facility] Comment on above: Performed By: #### 4 [id number] #### [address] Eosinophils/100 WBC (Bld) 2.7 % Normal [facility] Comment on above: Performed By: #### 4 [id number] #### [address] Erythrocyte distribution width (RBC) [Ratio] 13.0 % Normal 11.5-14.5 [facility] Comment on above: Performed By: #### 4 [id number] #### [address] Hematocrit (Bld) [Volume fraction] 37.5 % Normal 33.6-46.8 [facility] Comment on above: Performed By: #### 4 [id number] #### [address] Hemoglobin (Bld) [Mass/Vol] 11.8 g/dL Normal 11.7-15.8 [facility] Comment on above: Performed By: #### 4 [id number] #### [address] Immature granulocytes/100 WBC (Bld) 0.4 % Normal [facility] Comment on above: Performed By: #### 4 [id number] #### [address] Lymphocytes/100 WBC (Bld) 31.5 % Normal [facility] Comment on above: Performed By: #### 4 [id number] #### [address] MCH (RBC) [Entitic mass] 26.5 pg Low 27.5-32.3 [facility] Comment on above: Performed By: #### 4 [id number] #### [address] MCHC (RBC) [Mass/Vol] 31.5 g/dL Normal 30.7-35.5 [facility] Comment on above: Performed By: #### 4 [id number] #### [address] MCV (RBC) [Entitic vol] 84.3 fL Normal 80.2-99 [facility] Comment on above: Performed By: #### 4 [id number] #### [address] Monocytes/100 WBC (Bld) 5.4 % Normal [facility] Comment on above: Performed By: #### 4 [id number] #### [address] Neutrophils/100 WBC (Bld) 59.2 % Normal [facility] Comment on above: Performed By: #### 4 [id number] #### [address] NUCLEATED RED BLOOD CELLS AUTO 0.0 % Normal 0.0-1.0 [facility] Comment on above: Performed By: #### 4 [id number] #### [address] PLATELET COUNT 299 x10*3/uL Normal 150-400 [facility] Comment on above: Performed By: #### 4 [id number] #### [address] RED BLOOD CELL COUNT 4.45 x10*6/uL Normal 3.60-5.20 [facility] Comment on above: Performed By: #### 4 [id number] #### [address] WHITE BLOOD CELLS 5.2 x10*3/uL Normal 4.3-10.3 [facility] Comment on above: Performed By: #### 4 [id number] #### [address] CBC with differentialOrdered By: Background Lab on 08-12-2023 Absolute Immature Granulocytes 0.0 [facility] Age [Time] 84.3 fL 80.2 - 99 fL [facility] Age [Time] 26.5 pg Low 27.5 - 32.3 pg [facility] Age [Time] 31.5 g/dL 30.7 - 35.5 g/dL [facility] B. burgdorferi IgM IB Ql (CSF) 31.5 % [facility] Basophils (Bld) [#/Vol] 0.0 10*3/uL [facility] Basophils/100 WBC (Body fld) 0.8 % [facility] Eosinophils (Bld) [#/Vol] 1.6 10*3/uL [facility] Eosinophils (Bld) [#/Vol] 0.3 10*3/uL [facility] Eosinophils (Bld) [#/Vol] 0.1 10*3/uL [facility] Eosinophils/100 WBC (Bld) 2.7 % [facility] Erythrocyte distribution width (RBC) [Ratio] 13.0 % 11.5 - 14.5 % [facility] Hematocrit (Bld) [Volume fraction] 37.5 % 33.6 - 46.8 % [facility] Hexanoylglycine (U) [Moles/Vol] 11.8 g/dL 11.7 - 15.8 g/dL [facility] Immature granulocytes/100 WBC (Bld) 0.4 % [facility] Interpretation and review of laboratory results Abnormal [facility] Monocytes/100 WBC (Bld) 5.4 % [facility] Neurotensin (P) [Mass/Vol] 59.2 % [facility] Neutrophils (Bld) [#/Vol] 3.1 10*3/uL [facility] Nucleated RBC/100 WBC (Bld) [Ratio] 0.0 % 0.0 - 1.0 % [facility] Platelets (Bld) [#/Vol] 299 10*3/uL [facility] RBC (Bld) [#/Vol] 4.45 10*6/uL [employer] [facility] WBC (Bld) [#/Vol] 5.2 10*3/uL [facility] CT ABDOMEN PELVIS WITH IV CO NTRASTon [...] 20 RAC Omni 300 100 ml Normal [facility] zePASS [facility] HEPATIC FUNCTION PANELon Albumin [Mass/Vol] 4.0 g/dL Normal 3.5-5.0 [facility] Comment on above: Performed By: #### 4 [id number], [id number], [id number], [id number] #### [address] [id number] ALK PHOS 104 U/L Normal 24-126 [facility] Comment on above: Performed By: #### 4 [id number], [id number], [id number], [id number] #### [address] [address] [facility] ALT [Catalytic activity/Vol] 50 U/L High 4-35 [facility] Comment on above: Performed By: #### 4 [id number], [id number], [id number], [id number] #### [address] [place] [address] [place] AST [Catalytic activity/Vol] 59 U/L High 3-47 [facility] Comment on above: Performed By: #### 4 [id number], [id number], [id number], [id number] #### [address] [address] [place] Bilirubin [Mass/Vol] 0.1 mg/dL Low 0.2-1.6 [facility] Comment on above: Performed By: #### 4 [id number], [id number], [id number], [id number] #### [address] Bilirubin.indirect [Mass/Vol] 0.1 mg/dL Normal <=0.5 [facility] Comment on above: Performed By: #### 4 [id number], [id number], [id number], [id number] #### [address] Protein [Mass/Vol] 6.6 g/dL Normal 6.3-8.2 [facility] Comment on above: Performed By: #### 4 [id number], [id number], [id number], [id number] #### [address] Hepatic Function Panelon Albumin (Syn fld) [Mass/Vol] 4.0 g/dL 3.5 - 5.0 g/dL [facility] Aldosterone (U) [Mass/Vol] 104 U/L 24 - 126 U/L [facility] ALT [Catalytic activity/Vol] 50 U/L High 4 - 35 U/L [facility] AST [Catalytic activity/Vol] 59 U/L High 3 - 47 U/L [facility] Bilirubin [Mass/Vol] 0.1 mg/dL Low 0.2 - 1 .6 mg/dL [facility] Bilirubin.conjugated [Mass/Vol] 0.1 mg/dL NINF - 0.5 mg/dL [facility] Protein [Mass/Vol] 6.6 g/dL 6.3 - 8.2 g/dL [facility] LIPASEon 08-12-2023 Lipase [Catalytic activity/Vol] 11 U/L Low 23-300 [facility] Comment on above: Performed By: #### 4 [id number], [id number], [id number], [id number] #### [address] Lipaseon 08-12-2023 Lipase [Catalytic activity/Vol] 11 U/L Low 23 - 300 U/L [facility] No Panel Informationon 08-12 Extra Tube Hold for add-ons. [facility] Interpretation and review of laboratory results Abnormal [facility] POCT ED/FC/GSC Urine PregOrd ered By: Della Hays on 08-12-2023 Beta HCG ( test) Ql (U) Negative [facility] Interpretation and review of laboratory results Normal [facility] Quill Machine Tender Acceptable yes [facility] TROPONIN Ion 08-12-2023 Troponin I.cardiac [Mass/Vol] ng/mL Normal <=0.033 [facility] Comment on above: Result Comment: Nega tive: No detectable troponin-I. Performed By: #### 4 [id number] #### [address] TROPONIN I SERIESon 08-12-20 Troponin I.cardiac [Mass/Vol] ng/mL Normal <=0.033 [facility] Comment on above: Result Comment: Nega tive: No detectable troponin-I. Performed By: #### 4 [id number], [id number], [id number], [id number] #### [address] Troponin I (One time)on Interpretation and review of laboratory results Normal [facility] Troponin I.cardiac [Mass/Vol] ng/mL NINF - 0.033 ng/mL [facility] Comment on above: Negative: No detectable troponin-I. [facility] Troponin I - Series (X 3)on 08-12-2023 Interpretation and review of laboratory results Normal [facility] Troponin I.cardiac [Mass/Vol] ng/mL NINF - 0.033 ng/mL [facility] Comment on above: Negative: No detectable troponin-I. [facility] URINALYSIS WITH REFLEX CULTU REon 08-12-2023 Appearance (U) Clear Normal [facility] Comment on above: Performed By: #### 4 [id number] #### [address] [place] [address] [place] BILIRUBIN UA Negative Normal Negative [facility] Comment on above: Performed By: #### 4 [id number] #### [address] Color (U) Yellow Normal [facility] Comment on above: Performed By: #### 4 [id number] #### [address] Glucose Ql (U) Negative Normal Negative [facility] Comment on above: Performed By: #### 4 [id number] #### [address] Ketones Ql (U) Negative Normal Negative [facility] Comment on above: Performed By: #### 4 [id number] #### [address] LEUKOESTERASE Negative Normal Negative [facility] Comment on above: Performed By: #### 4 [id number] #### [address] MUCOUS-URINE Occasional Normal [facility] Comment on above: Performed By: #### 4 [id number] #### [address] Nitrite Ql (U) Negative Normal Negative [facility] Comment on above: Performed By: #### 4 [id number] #### [address] OCCULT BLD Negative Normal [facility] Comment on above: Performed By: #### 4 [id number] #### [address] PH, URINE 5.0 [facility] Comment on above: Performed By: #### 4 [id number] #### [address] Protein Ql (U) Negative Normal Negative [facility] Comment on above: Performed By: #### 4 [id number] #### [address] RBC LM.HPF (Urine sed) [#/Area] /[HPF] Normal <=5 [facility] Comment on above: Performed By: #### 4 [id number] #### [address] SPECIFIC GRAVITY, URINE 1.025 Normal [facility] Comment on above: Performed By: #### 4 [id number] #### [address] SQUAMOUS EPI CELLS 51 /LPF [facility] [place]note 2] [facility] Comment on above: Performed By: #### 4 [id number] #### [place] [id number] [place] UROBILINOGEN UA Negative Normal <2.0 [facility] Comment on above: Performed By: #### 4 [id number] #### [place] [address] WBC LM.HPF (Urine sed) [#/Area] 2 /[HPF] Normal <=5 [facility] Comment on above: Performed By: #### 4 [id number] #### [place] [address] Urinalysis complete W Reflex Culture panel (U)on 08-12-2023 Acetone [Mass/Vol] Negative Negative [employer] [facility] Appearance (Body fld) Clear [facility] Bilirubin Ql (U) Negative Negative Luba [facility] Color (Stone) Yellow [facility] G6PD (RBC) [Catalytic activity/Vol] Negative Negative [facility] Hemoglobin Ql (U) [facility] Leukocyte esterase Test strip Ql (U) Negative Negative [facility] Mucor racemosus IgE Qn (S) Occasional /LPF [facility] Nitrite Test strip (U) [Mass/Vol] Negative Negative [facility] pH (Imgue fld) 5.0 [facility] Protein (U) [Mass/Vol] Negative Negative Ge [facility] Boss IgE Qn (S) Negative Negative [facility] Specific gravity (U) [Rel density] 1.025 [facility] Spherocytes LM Ql (Bld) 51 /LPF [facility] Urobilinogen Qn (U) Negative [facility] - 2.0 Formerly named [facility] WBC (U) [#/Vol] 2 /uL [facility] 36on 08-02-2023 36 Call placed to alex spears to discuss how often she is taking Miralax. Patient is taking Miralax once daily as instructed. Per Alba Montague she was instructed that she can take it twice a day. Also advised patient that Alba Montague will be consulting with the physician who performed her procedure. [facility] Orders Onlyon 08-02-2023 Orders Only [id number] Darrian Leal 1970 F Date Provider Department Center 08/02/2023 GIANA JAMES [facility] Gerardo Heal No family history on file [facility] CNOVon 07-31-2023 CNOV Office Visit (SHERON ) ----- MARY LEAL ([id number]) 1970 F Date Time Provider Department 07/31/23 2:30 PM NELSY CHÁVEZ During your visit today, we recorded the following information about you: Pulse Blood pressure Weight Height 76/minute 136/96 69.9 kg 1.626 m Nelsy Chávez APRN.TUB OPERATOR 07/31/2023 5:35 PM Signed Female Pelvic Medicine AND Reconstructive Surgery Follow-Up Maryjose Leal is a 53 year old female, [...] new Pain: no Abnormal Vaginal Discharge: no 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 She has no history of an abnormal mammogram with cysts on US LMP: No LMP recorded. Patient has had a hysterectomy.; Menopause 3 years ago; hysterectomy in 2015: Menstrual history: NA; Deliveries: I have confirmed and edited as necessary, the PFSH obtained by others. Nelsy Chávez APRN.TUB OPERATOR Ceramics Test Engineer offered: Patient declines. OBJECTIVE: There were no [...] which included preparing to see the patient, knui-vh-rnml patient care, completing clinical documentation, performing a medically appropriate examination, counseling and educating the patient/family/caregiver and ordering medications, tests, or procedures. Referring Provider: SELF [200] Allergies As of Date: 07/31/2023 Noted Allergy Reaction RISPERIDONE 07/27/2021 5 - Intolerance Comments: Breast discharge Date Reviewed: 07/31/2023 Reviewed by: Jesscia Cornell RN - Fully Assessed Reason for Visit: Urinary Retention [228] Primary Visit Diagnosis:Incomplete bladder emptying [R33.9] Other Visit Diagnoses:Constipation, unspecified constipation type [K59.00] Urinary urgency [R39.15] Urinary frequency [R35.0] Nocturia [R35.1] Order(s):UA DIP, URINE (POC) [[id number]] Order #: [id number] #:[id number] 45-LAB URODYNAMICS [facility] [[id number]] Order #: [id number] Prescriptions as of 07/31/2023 - atenolol (TENORMIN) [...] 10 m (more content not included)... Normal [facility] UA DIP, URINE (POC)on 2022 BILIRUBIN UA (POCT) Negative Negative [facility] CLARITY UA (POCT) Clear [facility] COLOR UA (POCT) Yellow [facility] GLUCOSE UA (POCT) Negative Negative mg/dL [facility] Hemoglobin Ql (U) Negative Negative [facility] KETONE UA (POCT) Negative Negative mg/dL [facility] LEUKOCYTES UA (POCT) Negative Negative [facility] NITRITE UA (POCT) Negative Negative [facility] PH UA (POCT) 5.0 4.5 - 8.0 [facility] Protein Ql (U) Negative Negative mg/dL [facility] SPECIFIC GRAVITY UA (POCT) 1.010 1.005 - 1.030 [facility] UROBILINOGEN UA (POCT) 0.2 E.U./dL Brenda l E.U./dL [facility] HISTOLOGY - TISSUE EXAMon LAB AP ASR [...] the Clinical Laboratory Improvement Amendments of 1998. [facility] Comment on above: Performed By: #### L [id number] ####[facility] ([facility])[address] [place] [address] LAB AP CASE REPORT Normal [facility] Comment on above: Result Comment: Surg ical Pathology Case: [id number] Authorizing Provider: Matteo Quinones MD Collected: 07/25/20231125 Ordering Location: Eliceo Nicholas Received: 07/25/2023 [facility] [place] Pathologist: Boni Benito MD Specimens: A) - Small Intestine, Duodenum, R/O CELIAC B) - Gastric, R/O H PYLORI C) - Distal Esophagus, R/O EOE D) - Proximal Esophagus, R/O EOE E) - Small Intestine, Terminal Ileum, R/O COLITIS Performed By: #### L [id number] ####[facility] ([facility])[address] [place] [address] LAB AP CLINICAL INFORMATION Order Diagnoses [facility] Comment on above: Result Comment: K21. 9 - Gastroesophageal reflux disease without esophagitis [ICD-10-CM] R11.0 - Nausea [ICD-10-CM] R19.7 - Diarrhea, unspecified type [ICD-10-CM] Performed By: #### L [id number] ####[facility] ([facility])[address] [place] [address] LAB AP GROSS DESCRIPTION [facility] Comment on above: Result Comment: A. S [...] formalin in a container labeled Mary Leal, Gastric R/O H PYLORI . It consists [...] Goetz, PGY 1 Performed By: #### L [id number] ####[facility] ([facility])[address] [place] [address] LAB AP MICROSCOPIC DESCRIPTION Microscopic examination performed. [facility] Comment on above: Performed By: #### L [id number] ####[facility] ([facility])[address] [place] [address] LAB AP REPORT FINAL DIAGNOSIS NARRATIVE [facility] Comment on above: Result [...] or malignancy identified. Performed By: #### L [id number] ####[facility] ([facility])[address] [place] [address] HPon 07-25-2023 H&P reviewed. The cecilia montemayor was examined and there are no changes to the H&P. Normal [facility] HP ----- ----- Attestation signed by [...] bowel movements. Plan EGD and colonoscopy Normal [facility] NURSNOTEon 07-25-2023 NURSNOTE ANASTOMOSIS SITE REACHED Normal [facility] Orders Onlyon 07-25-2023 Orders Only [id number] ElvisDarrian arriaza en 1970 F Date Provider Department [place] 07/25/202345702-QVFOXFILIPE PAZ [facility] Pavi No family history on file Normal [facility] POCT GLUCOSE METER UNSOLICIT ED RESULTSon 07-25-2023 Glucose [Mass/Vol] 87 mg/dL Normal 70-105 [facility] Comment on above: Order Comment: Waive d Testing in the ED is performed under the ED CLIA certificate #[id number]. Result Comment: dhol as Performed By: #### L [id number] #### [facility] ([facility]) [address] [place] [address] Orders Onlyon 07-21-2023 Orders Only [id number] ElvisDarrian en 1970 F Date Provider Department Center 07/21/2023 ARELI PEREA [facility] No family history on file Normal [facility] Orders Onlyon 07-19-2023 Orders Only [id number] ElvisDarrian en 1970 F Date Provider Department [place] 07/19/2023 Karli-GIANA MORALES [facility] Gerardo Heal No family history on file [facility] Prep for Procedureon 023 Prep for Procedure [id number] ElvisDenverist en 1970 F Date Provider Department Center 07/17/2023 Sakina-MATTEO QUINONES [facility] No family history on file [facility] HPon 07-11-2023 HP Formatting of this n ote is different from the original. Images from the original note were not included. [facility] [address] LOZA [address] [place] [id number] SUBJECTIVE: Patient ID: Mary Leal is a [...] always hoarse and she hacks up phlegm 29/05, thick and foamy. Has bad GERD, Takes Dexilant daily, sees Dr. Montague at [facility]. HISTORY: Past Medical History: Diagnosis Date ADD (attention deficit disorder) Anxiety Asthma Bipolar disorder ([facility]) Depression Dysphagia Gastric paresis GERD (gastroesophageal reflux disease) Headache migraines History of pleurisy STATES 2 WEEKS AGO Hypertension Obesity Primary insomnia 07/07/2020 Rectal bleeding Restless leg syndrome Visual impairment one contact left, glasses Past Surgical History: Procedure Laterality Date APPENDECTOMY ARTHROSCOPIC REPAIR ACL Left COLONOSCOPY COLONOSCOPY with bx's N/A 03/20/2020 Performed by Noman Mayo MD at [facility] ENDOSCOPY EGD, DILATATION N/A 09/25/2020 Performed by Noman Mayo MD at [facility] ENDOSCOPY FOOT SURGERY 06/25/2020 left foot surgery HYSTERECTOMY LASER LINGUAL TONISILLECTOMY Circumferential 07/08/2021 Performed by Areli Avila MD PhD at [facility] MRI FOOT LEFT NECK SURGERY PLANTAR FASCIECTOMY RELEASE PHARYNGEAL SCAR CPT 56425 Circumferential 07/08/2021 Performed by Areli Avila MD PhD at [facility] RESECTION SUBMUCOSAL NASAL Bilateral 02/11/2021 Performed by Areli Avila MD PhD at [facility] SEPTOPLASTY Circumferential 02/11/2021 Performed by Areli Avila MD PhD at [facility] TONSILLECTOMY Bilateral 02/11/2021 Performed by Areli Avila MD PhD at [facility] uvuloplasty N/A 02/11/2021 Performed by Areli Avila MD PhD at [facility] Family History Problem Relation Age of [...] tablet (3 mg total) by mouth nightly. lwecjnqtszq-yjzasafnt-uly anter (TRELEGY ELLIPTA) 100-62.5-25 mcg blister with [...] no mor (more content not included)... Normal [facility] Orders Onlyon 06-26-2023 Orders Only [id number] Darrian Leal 1970 F Date Provider Department Center 06/26/2023 GIANA JAMES [facility] Gerardo Heal No family history on file Normal [facility] Office Visit (Cardiology)on 06-13-2023 Follow-up visit Diagnoses/Problems Assessed Chest pain (786.50) (R07.9) Elevated troponin (790.6) (R77.8) Fatigue (780.79) (R53.83) Never a smoker Overweight with body mass index (BMI) of 27 to 27.9 in adult (278.02,V85.23) (E66.3,Z68.27) Orders Elevated troponin IO EKG Electrocardiogram- 12 Lead; Status:Active - Perform Order,Retrospective Authorization; Requested for:[id number]; Overweight with body mass index (BMI) of 27 to 27.9 in adult Healthy Weight Tips; Status:Complete - Retrospective Authorization; Done: [id number] Some eating tips that can help you lose weight.; Status:Complete - Retrospective Authorization; Done: [id number] SocHx: Never a smoker Tobacco Use Screening; Status:Complete; Done: [id number] Patient Instructions Please bring all medicines, vitamins, [...] weakness, dizziness, diaphoresis with recent work-up that [facility] emergency room. Reportedly her troponins are elevated [...] are currently being investigated at [facility] (now her fourth GI specialist). Last year while in [place] she had similar issues with elevated troponins in the ED and underwent heart catheterization that did not reveal any specific significant disease, details of the discharge summary are reviewed She underwent recent stress perfusion imaging at [facility], the report is reviewed, she has no [...] disease, will investigate the troponin rise at [facility] however I believe this is likely a non-IA troponin elevation, likely associated with underlying inflammatory [...] Signs Recorded: 13Jun2023 10:37AM Heart Rate70, Apical Djqkcjfb403, RUE, Sitting Dogcgtvzj17, RUE, Sitting Height5 ft 4 in Yajwyf760 lb BMI Xwupmpbifj04.46 kg/m2 BSA Calculated1.78 Tobacco Useb) No PHQ-2 [...] #1. Lit (more content not included)... Normal [employer] Tobacco Screening.on 023 Adult depression screening assessment No [facility] [address] DO Work Phone: Adult depression screening assessment Yes [facility] [address] DO Work Phone: Adult depression screening assessment Moderate (10-14) [facility] [facility] DO Work Phone: Fall risk assessment a) No falls within the last year [facility] 320 DO Work Phone: Tobacco use status CP b) No [facility] 320 DO Work Phone: Tobacco Screening. 1-Several days [facility] [address] DO Work Phone: Tobacco Screening. 3-Nearly every day [facility] 320 DO Work Phone: Tobacco Screening. 0-Not at all [facility] 320 DO Work Phone: Tobacco Screening. Somewhat Difficult -[facility] [address] DO Work Phone: STR cardiac stress/lexiscano n 06-09-2023 STR cardiac stress/lexiscan [facility] [place] [address] [place] [address] Cardiac Stress Test Signed Patient: Mary Leal MR#: [id number] [id number] : 1970 Acct:[id number] Age/Sex: 53 / F ADM Date: 06/05/23 Loc: ER Room: Type: [facility] ER Attending Dr: Copies to: DO Marielle Soto MD, [facility] Ordering Provider: Anibal Valle DO Date of [...] 06/09/23 1614 Dictated By: Marielle Scruggs MD, [facility] 06/09/23 1550 Signed By: 06/10/23 0903 [facility] Telemedici neon 06-08-2023 [facility] Telemedicine [id number] Mary Leal 1970 F Date Provider Department Center 06/08/2023 GIANA JAMES [facility] Gerardo Heal No family history on file Level of Service:[id number] [place] OFFICE/OUTPATIENT ESTABLISHED MOD MDM 30-39 MIN Reason for Visit and Comments: Telehealth Audio/video Visit [871] [facility] NM mirtha perf SPECT rest stron 08-03-2023 NM mirtha perf SPECT rest str [facility] [place] [address] [place] [address] Nuclear Medicine Report Signed Patient: Mary Leal MR#: [id number] : 1970 Acct:[id number] Age/Sex: 53 / F ADM Date: 06/05/23 Loc: ER Room: Type: [facility] Attending Dr: Copies to: DO Marielle Soto MD, [facility] Ordering Provider: Anibal Valle DO Date of [...] 06/08/23 1659 Dictated By: Marielle Scruggs MD, [facility] 06/08/23 1540 Signed By: 06/09/23 1532 Normal [facility] 36on 06-05-2023 36 Patient calls wonder ing about her calprotectin being high. Please advise Normal [facility] Activated partial thrombopla stin time (aPTT) in platelet poor plasma by coagulation aOrdered By: Anibal Valle on 06-05-2023 aPTT Coag (PPP) [Time] 28.0 s 25.1-36.5 [facility] B-Type Natriuretic Peptideon 06-05-2023 Natriuretic peptide B (Bld) [Mass/Vol] 39.0 pg/mL Normal 5-100 [facility] Comment on above: Result Comment: PERF ORMED BY: [place] [address] PATHOLOGIST CHANGE MANAGEMENT LEVAR CASE M.D. Performed By: #### T 4T, ESR, URIC, CRP, TSH3 #### [address] #### RA, CHUYITA #### [facility] , Basic Metabolic Panelon 07-3 Anion gap [Moles/Vol] 10.6 mmol/L Normal 6.0-15.0 [facility] Comment on above: Performed By: #### T 4T, ESR, URIC, CRP, TSH3 #### [address] #### RA, CHUYITA #### [facility] , Calcium [Mass/Vol] 9.0 mg/dL Normal 8.6-10.3 [facility] Comment on above: Performed By: #### T 4T, ESR, URIC, CRP, TSH3 #### [facility] [address] [place] [address] #### RA, CHUYITA #### [facility] , Chloride [Moles/Vol] 108 mmol/L High 98-107 [facility] Comment on above: Performed By: #### T 4T, ESR, URIC, CRP, TSH3 #### [address] #### RA, CHUYITA #### [facility] , CO2 [Moles/Vol] 23.2 mmol/L Normal 21.0-31.[address] [facility] Comment on above: Performed By: #### T 4T, ESR, URIC, CRP, TSH3 #### [place] [address] [place] #### RA, CHUYITA #### [facility] , Creatinine [Mass/Vol] 0.67 mg/dL Normal 0.60-1.20 [facility] Comment on above: Performed By: #### T 4T, ESR, URIC, CRP, TSH3 #### [facility] [address] [place] [address] #### RA, CHUYITA #### [facility] , Creatinine Clr Calc Pharmacy 97.82 [facility] Comment on above: Result Comment: PERF ORMED BY: [place] [address] PATHOLOGIST CHANGE MANAGEMENT LEVAR CASE M.D. Performed By: #### T 4T, ESR, URIC, CRP, TSH3 #### [address] #### RA, CHUYITA #### [facility] , GFR/1.73 sq M.predicted MDRD (S/P/Bld) [Vol rate/Area] mL/min/{1.73_m2} [facility] Comment on above: Performed By: #### T 4T, ESR, URIC, CRP, TSH3 #### [facility] [address] [place] [address] #### RA, CHUYITA #### [facility] , Glucose [Mass/Vol] 106 mg/dL High 70-100 [facility] Comment on above: Result Comment: [place] Glucose Reference Range is dependent on time and content of last meal. Glucose of more than 200 mg/dL in a nonstressed, ambulatory subject supports the diagnosis of Diabetes Mellitus. ADA recommended reference range Performed By: #### T 4T, ESR, URIC, CRP, TSH3 #### [facility] [address] [place] [address] [place] #### RA, CHUYITA #### [facility] , Potassium [Moles/Vol] 3.8 mmol/L Normal 3.5-5.1 [facility] Comment on above: Performed By: #### T 4T, ESR, URIC, CRP, TSH3 #### [facility] [address] [place] [address] [place] #### RA, CHUYITA #### [facility] , Sodium [Moles/Vol] 138 mmol/L Normal 136-145 [facility] Comment on above: Performed By: #### T 4T, ESR, URIC, CRP, TSH3 #### [facility] [address] [place] [address] [place] #### RA, CHUYITA #### [facility] , Urea nitrogen [Mass/Vol] 10 mg/dL Normal 7-25 [facility] Comment on above: Performed By: #### T 4T, ESR, URIC, CRP, TSH3 #### [facility] [address] [place] [address] [place] #### RA, CHUYITA #### [facility] , Basophils Auto (Bld) [#/Vol] Ordered By: Anibal Valle on 06-05-2023 Basophils (Bld) [#/Vol] 0.0 10*3/uL 0.0-0.2 [facility] Basophils/100 WBC Auto (Bld) Ordered By: Anibal Valle on 06-05-2023 Basophils/100 WBC (Bld) 0.4 % . [facility] Calcium [Mass/volume] in Ser um or PlasmaOrdered By: Anibal Valle on 06-05-2023 Calcium [Mass/Vol] 9.0 mg/dL 8.6-10.3 [facility] Carbon dioxide, total [Moles /volume] in Serum or PlasmaOrdered By: Anibal Valle on 06-05-2023 CO2 [Moles/Vol] 23.2 mmol/L 21.0-31.[address] [facility] Chloride [Moles/volume] in S jay or PlasmaOrdered By: Anibal Valle on 06-05-2023 Chloride [Moles/Vol] 108 mmol/L 98-107 [facility] Complete Blood Count Auto Di ffon 06-05-2023 Basophils (Bld) [#/Vol] 0.0 10*3/uL Normal 0.0-0.2 [facility] Comment on above: Result Comment: PERF ORMED BY: [place] [address] PATHOLOGIST CHANGE MANAGEMENT LEVAR CASE M.D. Performed By: #### T 4T, ESR, URIC, CRP, TSH3 #### [address] #### RA, CHUYITA #### [facility] , Basophils/100 WBC (Bld) 0.4 % Normal . [facility] Comment on above: Performed By: #### T 4T, ESR, URIC, CRP, TSH3 #### [facility] [address] [place] [address] #### RA, CHUYITA #### [facility] , Eosinophils (Bld) [#/Vol] 0.1 10*3/uL Normal 0.0-0.45 [facility] Comment on above: Performed By: #### T 4T, ESR, URIC, CRP, TSH3 #### [address] #### RA, CHUYITA #### [facility] , Eosinophils/100 WBC (Bld) 1.9 % Normal . [facility] Comment on above: Performed By: #### T 4T, ESR, URIC, CRP, TSH3 #### [facility] [address] [place] [address] [place] #### RA, CHUYITA #### [facility] , Erythrocyte distribution width (RBC) [Ratio] 13.9 % Normal 11.9-15.3 [facility] Comment on above: Performed By: #### T 4T, ESR, URIC, CRP, TSH3 #### [facility] [address] [place] [address] [place] #### RA, CHUYITA #### [facility] , Hematocrit (Bld) [Volume fraction] 34.4 % Normal 34.0-46.4 [facility] Comment on above: Performed By: #### T 4T, ESR, URIC, CRP, TSH3 #### [facility] [address] [place] [address] #### RA, CHUYITA #### [facility] , Hemoglobin (Bld) [Mass/Vol] 11.9 g/dL Normal 11.8-15.4 [facility] Comment on above: Performed By: #### T 4T, ESR, URIC, CRP, TSH3 #### [facility] [address] [place] [address] [place] #### RA, CHUYITA #### [facility] , Lymphocytes (Bld) [#/Vol] 1.8 10*3/uL Normal 1.00-4.8 [facility] Comment on above: Performed By: #### T 4T, ESR, URIC, CRP, TSH3 #### [address] #### RA, CHUYITA #### [facility] , Lymphocytes/100 WBC (Bld) 41.0 % Normal . [facility] Comment on above: Performed By: #### T 4T, ESR, URIC, CRP, TSH3 #### [address] #### RA, CHUYITA #### [facility] , MCH (RBC) [Entitic mass] 27.7 pg Normal 24.7-34.3 [facility] Comment on above: Performed By: #### T 4T, ESR, URIC, CRP, TSH3 #### [place] [address] [place] #### RA, CHUYITA #### [facility] , MCV (RBC) [Entitic vol] 80.2 fL Normal 80-100 [facility] Comment on above: Performed By: #### T 4T, ESR, URIC, CRP, TSH3 #### [place] [address] [place] #### RA, CHUYITA #### [facility] , Mean Corpuscular HGB Conc 34.5 g/dL Normal 32.0-35.0 [facility] Comment on above: Performed By: #### T 4T, ESR, URIC, CRP, TSH3 #### [address] #### RA, CHUYITA #### [facility] , Monocytes (Bld) [#/Vol] 0.3 10*3/uL Normal 0.0-0.8 [facility] Comment on above: Performed By: #### T 4T, ESR, URIC, CRP, TSH3 #### [facility] [address] [place] [address] #### RA, CHUYITA #### [facility] , Monocytes/100 WBC (Bld) 24.18 % High 0.00-20.00 [facility] Comment on above: Result Comment: For adults in ED, MDW > 20.0 may be associated with a higher risk of sepsis during the first 12 hrs of hospital admission Performed By: #### T 4T, ESR, URIC, CRP, TSH3 #### [facility] [address] [place] [address] [place] #### RA, CHUYITA #### [facility] , Monocytes/100 WBC (Bld) 7.5 % Normal . [facility] Comment on above: Performed By: #### T 4T, ESR, URIC, CRP, TSH3 #### [facility] [address] [place] [address] [place] #### RA, CHUYITA #### [facility] , Neutrophils (Bld) [#/Vol] 2.2 10*3/uL Normal 1.8-7.7 [facility] Comment on above: Performed By: #### T 4T, ESR, URIC, CRP, TSH3 #### [place] [address] [place] #### RA, CHUYITA #### [facility] , Neutrophils/100 WBC (Bld) 49.2 % Normal . [facility] Comment on above: Performed By: #### T 4T, ESR, URIC, CRP, TSH3 #### [facility] [address] [place] [address] [place] #### RA, CHUYITA #### [facility] , NRBC% 0.1 /100{WBC} Normal 0-0.5 [facility] Comment on above: Performed By: #### T 4T, ESR, URIC, CRP, TSH3 #### [facility] [address] [place] [address] [place] #### RA, CHUYITA #### [facility] , Platelet mean volume (Bld) [Entitic vol] 7.4 fL Normal 6.3-10.7 [facility] Comment on above: Performed By: #### T 4T, ESR, URIC, CRP, TSH3 #### [facility] [address] [place] [address] [place] #### RA, CHUYITA #### [facility] , Platelets (Bld) [#/Vol] 336 10*3/uL Normal 150-450 [facility] Comment on above: Performed By: #### T 4T, ESR, URIC, CRP, TSH3 #### [facility] [address] [place] [address] #### RA, CHUYITA #### [facility] , RBC (Bld) [#/Vol] 4.29 10*6/uL Normal 3.60-5.00 [facility] Comment on above: Performed By: #### T 4T, ESR, URIC, CRP, TSH3 #### [facility] [address] [place] [address] [place] #### RA, CHUYITA #### [facility] , WBC (Bld) [#/Vol] 4.4 10*3/uL Normal 3.8-11.6 [facility] Comment on above: Performed By: #### T 4T, ESR, URIC, CRP, TSH3 #### [facility] [address] [place] [address] [place] #### RA, CHUYITA #### [facility] , Creatinine [Mass/volume] in Serum or PlasmaOrdered By: Anibal Valle on 06-05-2023 Creatinine [Mass/Vol] 0.67 mg/dL 0.60-1.20 [facility] ECG 12 lead ECGon 06-05-2023 ECG 12 lead ECG [facility] [place] [address] Electrocardiograph Report Signed Patient: Mary Leal MR#: [id number] 863 : 1970 Acct:[id number] Age/Sex: 53 / F ADM Date: 06/05/23 Loc: ER Room: Type: DEP ER Attending Dr: Ordering Provider: Olayinka Corado MD, RIVAS Date of Service: 06/05/23 ECG/ECG 12 lead [...] was found Confirmed by ANIBAL VALLE DO ([id number]) on 06/05/2023 4:21:05 PM Referred By: Electronically Signed By:ANIBAL VALLE DO Transcribed By: MUS Signed By Anibal Valle DO 06/05 1621 Normal [facility] ECG 12 lead ECG [facility] [place] [address] Electrocardiograph Report Signed Patient: Mary Leal MR#: [id number] : 1970 Acct:[id number] Age/Sex: 53 / F ADM Date: 06/05/23 Loc: ER Room: Type: DEP ER Attending Dr: Ordering Provider: Anibal Valle [...] was found Confirmed by ANIBAL VALLE DO ([id number]) on 06/05/2023 4:21:06 PM Referred By: Electronically Signed By:ANIBAL VALLE DO Transcribed By: MUS Signed By Anibal Valle DO 06/05 1621 Normal [facility] Eosinophils Auto (Bld) [#/Vo l]Ordered By: Anibal Valle on 06-05-2023 Eosinophils (Bld) [#/Vol] 0.1 10*3/uL 0.0-0.45 [facility] Eosinophils/100 WBC Auto (Bl d)Ordered By: Anibal Valle on 06-05-2023 Eosinophils/100 WBC (Bld) 1.9 % . [facility] Erythrocyte distribution wid th Auto (RBC) [Ratio]Ordered By: Anibal Valle on 06-05-2023 Erythrocyte distribution width (RBC) [Ratio] 13.9 % 11.9-15.3 [facility] Glucose [Mass/volume] in Ser um or PlasmaOrdered By: Anibal Valle on 06-05-2023 Glucose [Mass/Vol] 106 mg/dL 70-100 [facility] Comment on above: ADA recommended refe rence rangeRandom Glucose Reference Range is dependent on time and content of last meal. Glucose of more than 200 mg/dL in a nonstressed, ambulatory subject supports the diagnosis of Diabetes Mellitus. Hematocrit Auto (Bld) [Volum e fraction]Ordered By: Anibal Valle on 06-05-2023 Hematocrit (Bld) [Volume fraction] 34.4 % 34.0-46.4 [facility] Hemoglobin [Mass/volume] in BloodOrdered By: Anibal Valle on 06-05-2023 Hemoglobin (Bld) [Mass/Vol] 11.9 g/dL 11.8-15.4 [facility] Laboratory - CoagulationOrde red By: Anibal Valle on 06-05-2023 PT Coag (PPP) [Time] 12.0 s 9.0-12.9 [facility] Leukocytes [#/volume] correc herbert for nucleated erythrocytes in Blood by Automated counOrdered By: Anibal Valle on 06-05-2023 WBC corrected for nucl RBC Auto (Bld) [#/Vol] 4.4 10*3/uL 3.8-11.6 [facility] Lymphocytes Auto (Bld) [#/Vo l]Ordered By: Anibal Valle on 06-05-2023 Lymphocytes (Bld) [#/Vol] 1.8 10*3/uL 1.00-4.8 [facility] Lymphocytes/100 WBC Auto (Bl d)Ordered By: Anibal Valle on 06-05-2023 Lymphocytes/100 WBC (Bld) 41.0 % . [facility] MCH Auto (RBC) [Entitic mass ]Ordered By: Anibal Valle on 06-05-2023 MCH (RBC) [Entitic mass] 27.7 pg 24.7-34.3 [facility] MCHC Auto (RBC) [Mass/Vol]Or dered By: Anibal Valle on 06-05-2023 MCHC (RBC) [Mass/Vol] 34.5 g/dL 32.0-35.0 [facility] MCV Auto (RBC) [Entitic vol] Ordered By: Anibal Valle on 06-05-2023 MCV (RBC) [Entitic vol] 80.2 fL 80-100 [facility] Monocyte distribution width [Entitic volume] in Blood by AutomatedOrdered By: Anibal Valle on 06-05-2023 Monocyte distribution width Auto (Bld) [Entitic vol] 24.18 % 0.00-20.00 [facility] Comment on above: For adults in ED, MD W > 20.0 may be associated with a higher risk of sepsis during the first 12 hrs of hospital admission Monocytes Auto (Bld) [#/Vol] Ordered By: Anibal Valle on 06-05-2023 Monocytes (Bld) [#/Vol] 0.3 10*3/uL 0.0-0.8 [facility] Monocytes/100 WBC Auto (Bld) Ordered By: Anibal Valle on 06-05-2023 Monocytes/100 WBC (Bld) 7.5 % . [facility] Natriuretic peptide B [Mass/ Vol]Ordered By: Anibal Valle on 06-05-2023 Natriuretic peptide B (Bld) [Mass/Vol] 39.0 pg/mL 5-100 [facility] Neutrophils Auto (Bld) [#/Vo l]Ordered By: Anibal Valle on 06-05-2023 Neutrophils (Bld) [#/Vol] 2.2 10*3/uL 1.8-7.7 [facility] Neutrophils/100 WBC Auto (Bl d)Ordered By: Anibal Valle on 06-05-2023 Neutrophils/100 WBC (Bld) 49.2 % . [facility] No Panel InformationOrdered By: Anibal Valle on 06-05-2023 Estimated GFR (CKD-EPI) > 60.0 mL/Min [facility] Creatinine Clearance (Chem 97.82 [facility] Nucleated erythrocytes [Pres ence] in Blood by Automated countOrdered By: Anibal Valle on 06-05-2023 Nucleated RBC Auto Ql (Bld) 0.1 /100{WBC} 0-0.5 [facility] Partial Thromboplastin Timeo n 06-05-2023 aPTT Coag (Bld) [Time] 28.0 s Normal 25.1-36.5 [facility] Comment on above: Result Comment: PERF ORMED BY: [place] [address] PATHOLOGIST CHANGE MANAGEMENT LEVAR CASE M.D. Performed By: #### T 4T, ESR, URIC, CRP, TSH3 #### [place] [address] [place] #### RA, CHUYITA #### [facility] , Platelet mean volume Auto (B ld) [Entitic vol]Ordered By: Anibal Valle on 06-05-2023 Platelet mean volume (Bld) [Entitic vol] 7.4 fL 6.3-10.7 [facility] Platelet poor plasma interna tional normalized ratio (INR) by coagulation assay (relatOrdered By: Anibal Valle on 06-05-2023 INR Coag (PPP) [Relative time] 1.0 {INR} [facility] Comment on above: INR Therapeutic Rang e [...] 06-05-2023 Platelets (Bld) [#/Vol] 336 10*3/uL 150-450 [facility] Potassium [Moles/volume] in Serum or PlasmaOrdered By: Anibal Valle on 06-05-2023 Potassium [Moles/Vol] 3.8 mmol/L 3.5-5.1 [facility] Prothrombin Time INRon 06-05 INR Coag (PPP) [Relative time] 1.0 {INR} Normal [facility] Comment on above: Result Comment: INR Therapeutic [...] T 4T, ESR, URIC, CRP, TSH3 #### [facility] [address] [place] [address] [place] #### RA, CHUYITA #### [facility] , PT Coag (PPP) [Time] 12.0 s Normal 9.0-12.9 [facility] Comment on above: Performed By: #### T 4T, ESR, URIC, CRP, TSH3 #### [facility] [address] [place] [address] [place] #### RA, CHUYITA #### [facility] , RBC Auto (Bld) [#/Vol]Ordere d By: Anibal Valle on 06-05-2023 RBC (Bld) [#/Vol] 4.29 10*6/uL 3.60-5.00 [facility] Serum or plasma anion gap de terminationOrdered By: Anibal Valle on 06-05-2023 Anion gap [Moles/Vol] 10.6 mmol/L 6.0-15.0 [facility] Sodium [Moles/volume] in Ser um or PlasmaOrdered By: Anibal Valle on 06-05-2023 Sodium [Moles/Vol] 138 mmol/L 136-145 [facility] Troponin I High Sensitivityo n 06-05-2023 Troponin I High Sensitivity 2.5 pg/mL Normal 0.0-15.0 [facility] Comment on above: Result Comment: PERF ORMED BY: [place] [phone] PATHOLOGIST CHANGE MANAGEMENT LEVAR CASE M.D. Performed By: #### T 4T, ESR, URIC, CRP, TSH3 #### [address] #### RA, CHUYITA #### [facility] , Troponin I High Sensitivity 2.6 pg/mL Normal 0.0-15.0 [facility] Comment on above: Result Comment: PERF ORMED BY: [place] [address] PATHOLOGIST CHANGE MANAGEMENT LEVAR CASE M.D. Performed By: #### T 4T, ESR, URIC, CRP, TSH3 #### [place] [address] [place] #### RA, CHUYITA #### [facility] , Troponin I.cardiac [Mass/vol ume] in Serum or Plasma by Detection limit <= 0.01 ng/Ordered By: Anibal Valle on 06-05-2023 Troponin I.cardiac DL <= 0.01 ng/mL [Mass/Vol] 2.6 pg/mL 0.0-15.0 [facility] Urea nitrogen [Mass/volume] in Serum or PlasmaOrdered By: Anibal Valle on 06-05-2023 Urea nitrogen [Mass/Vol] 10 mg/dL 05-30 [facility] WBC Auto (Bld) [#/Vol]Ordere d By: Anibal Valle on 06-05-2023 WBC (Bld) [#/Vol] 4.4 10*3/uL 3.8-11.6 [facility] XR chest 1V portableon 06-05 XR chest 1V portable [facility] [address] XRay Report Signed Patient: Mary Leal MR#: [id number] 863 : 1970 Acct:[id number] Age/Sex: 53 / F ADM Date: 06/05/23 [...] Andres Bullard M.D.06/05/2023 9:53 AM Dictation Location: [place] [address] Transcribed By: [facility] 06/05/23 0953 Dictated By: Andres Bullard DO 06/05/23 0952 Signed By: 06/05/23 0953 Normal [facility] 29on 05-31-2023 29 Addended by: KASSANDRA MONTAGUE on: 06/13/2023 03:40 PM Modules accepted: Orders Normal [facility] BASIC METABOLIC PANELon 07- Anion gap [Moles/Vol] 12 mmol/L Normal 7-20 [facility] Comment on above: Performed By: #### L [id number] #### [facility] ([facility]) [address] [place] [address] Calcium [Mass/Vol] 9.8 mg/dL Normal 8.6-10.3 [facility] Comment on above: Performed By: #### L [id number] #### [facility] ([facility]) [address] [place] [address] Chloride [Moles/Vol] 105 mmol/L Normal 98-107 [facility] Comment on above: Performed By: #### L [id number] #### [facility] ([facility]) [address] [place] [address] CO2 [Moles/Vol] 27 mmol/L Normal 21-31 [facility] Comment on above: Performed By: #### L [id number] #### [facility] ([facility]) [address] [place] [address] Creatinine [Mass/Vol] 0.75 mg/dL Normal 0.60-1.20 [facility] Comment on above: Performed By: #### L [id number] #### [facility] ([facility]) [address] [place] [address] GLOMERULAR FILTRATION RATE ML/MIN/1.73 SQ M.PREDICTED 96.3 mL/min/1.73m*2 Normal >60.0 [facility] Comment on above: Result Comment: [facility]???s estimated glomerular filtration rate (eGFR) will [...] individuals. Performed By: #### L [id number] #### [facility] ([facility]) [address] [place] [address] Glucose [Mass/Vol] 103 mg/dL High 70-100 [facility] Comment on above: Performed By: #### L [id number] #### [facility] ([facility]) [address] [place] [address] Potassium [Moles/Vol] 4.6 mmol/L Normal 3.5-5.1 [facility] Comment on above: Performed By: #### L [id number] #### [facility] ([facility]) [address] [place] [address] Sodium [Moles/Vol] 139 mmol/L Normal 136-145 [facility] Comment on above: Performed By: #### L [id number] #### [facility] ([facility]) [address] [place] [address] Urea nitrogen [Mass/Vol] 16 mg/dL Normal 7-25 [facility] Comment on above: Performed By: #### L [id number] #### [facility] ([facility]) [address] [place] [address] UREA NITROGEN/CREATININE (MASS RATIO) IN SER/PLAS 21.3 Normal [facility] Comment on above: Performed By: #### L [id number] #### [facility] ([facility]) [address] [place] [address] C-REACTIVE PROTEINon 023 C REACTIVE PROTEIN (MG/L) IN SER/PLAS 2.7 mg/L Normal 0.0-7.0 [facility] Comment on above: Performed By: #### L [id number] #### [facility] ([facility]) [address] [place] [address] CALPROTECTIN STOOLon 023 CALPROTECTIN, FECAL 171 ug/g High <=49 [facility] Comment on above: Result Comment: REFE RENCE INTERVAL: Calprotectin, Fecal by Immunoassay Less than 50 ug/g.........Normal 50-120 ug/g...............Borderline elevated, test should be re-evaluated in 4-6 weeks. 121 ug/g or greater.......Elevated Performed By: [facility] [address] [place] [address] Booster Operator: Moisés Moreau MD, PhD Performed By: #### L [id number] #### [facility] [address] [place] [address] CBC WITH AUTO DIFFERENTIALon 05-31-2023 Basophils (Bld) [#/Vol] 0.06 10*3/uL Normal 0.00-0.20 [facility] Comment on above: Performed By: #### L [id number] #### [facility] ([facility]) [address] [place] [address] Basophils/100 WBC (Bld) 0.9 % Normal 0.0-1.0 [facility] Comment on above: Performed By: #### L [id number] #### [facility] ([facility]) [address] [place] [address] Eosinophils (Bld) [#/Vol] 0.09 10*3/uL Normal 0.00-0.50 [facility] Comment on above: Performed By: #### L [id number] #### [facility] ([facility]) [address] [place] [address] Eosinophils/100 WBC (Bld) 1.4 % Normal 0.0-6.0 [facility] Comment on above: Performed By: #### L [id number] #### [facility] ([facility]) [address] [place] [address] Erythrocyte distribution width (RBC) [Ratio] 12.7 % Normal 11.5-15.0 [facility] Comment on above: Performed By: #### L [id number] #### [facility] ([facility]) [address] [place] [address] ERYTHROCYTE MEAN CORPUSCULAR HEMOGLOBIN CONCENTRATION (G/DL) BY AUTOMATED 32.2 g/dL Normal 32.0-35.0 [facility] Comment on above: Performed By: #### L [id number] #### [facility] [address] [place] [address] Hematocrit (Bld) [Volume fraction] 37.9 % Normal 36.0-48.0 [facility] Comment on above: Performed By: #### L [id number] #### [facility] [address] [place] [address] Hemoglobin (Bld) [Mass/Vol] 12.2 g/dL Normal 12.0-15.0 [facility] Comment on above: Performed By: #### L [id number] #### [facility] ([facility]) [address] [place] [address] Immature granulocytes (Bld) [#/Vol] 0.02 10*3/uL Normal 0.00-0.20 [facility] Comment on above: Performed By: #### L [id number] #### [facility] [address] [place] [address] Immature granulocytes/100 WBC (Bld) 0.3 % Normal 0.0-1.0 [facility] Comment on above: Performed By: #### L [id number] #### [facility] ([facility]) [address] [place] [address] Lymphocytes (Bld) [#/Vol] 2.04 10*3/uL Normal 1.20-4.00 [facility] Comment on above: Performed By: #### L [id number] #### [facility] ([facility]) [address] [place] [address] Lymphocytes/100 WBC (Bld) 31.9 % Normal 20.0-45.0 [facility] Comment on above: Performed By: #### L [id number] #### [facility] ([facility]) [address] [place] [address] MCH (RBC) [Entitic mass] 27.0 pg Normal 27.0-33.0 [facility] Comment on above: Performed By: #### L [id number] #### [facility] ([facility]) [address] [place] [address] MCV (RBC) [Entitic vol] 83.8 fL Normal 82.0-98.0 [facility] Comment on above: Performed By: #### L [id number] #### [facility] ([facility]) [address] [place] [address] Monocytes (Bld) [#/Vol] 0.35 10*3/uL Normal 0.10-1.00 [facility] Comment on above: Performed By: #### L [id number] #### [facility] ([facility]) [address] [place] [address] Monocytes/100 WBC (Bld) 5.5 % Normal 5.0-12.0 [facility] Comment on above: Performed By: #### L [id number] #### [facility] ([facility]) [address] [place] [address] Neutrophils (Bld) [#/Vol] 3.83 10*3/uL Normal 1.60-7.60 [facility] Comment on above: Performed By: #### L [id number] #### [facility] ([facility]) [address] [place] [address] Neutrophils/100 WBC (Bld) 60.0 % Normal 40.0-72.0 [facility] Comment on above: Performed By: #### L [id number] #### [facility] ([facility]) [address] [place] [address] NRBC (PER 100 WBCS) BY AUTOMATED COUNT 0.0 % Normal 0 [facility] Comment on above: Performed By: #### L [id number] #### [facility] ([facility]) [address] [place] [address] PLATELETS (10*3/UL) IN BLOOD AUTOMATED COUNT 485 10*3/uL High 150-400 [facility] Comment on above: Performed By: #### L [id number] #### [facility] ([facility]) [address] [place] [address] RBC (Bld) [#/Vol] 4.52 10*6/uL Normal 3.80-5.00 [facility] Comment on above: Performed By: #### L [id number] #### [facility] ([facility]) [address] [place] [address] WBC (Bld) [#/Vol] 6.39 10*3/uL Normal 4.00-10.60 [facility] Comment on above: Performed By: #### L [id number] #### [facility] ([facility]) [address] [place] [address] ENTERIC BACTERIA, LIMITED PA RASITE DNA PANELon 05-31-2023 CAMPYLOBACTER SPECIES Negative Normal Negative [facility] Comment on above: Order Comment: Testi [...] the amplified DNA. Performed By: #### L [id number] ####[facility] ([facility])[address] [place] [address] CRYPTOSPORIDIUM (HOMINIS AND PARVUM) Negative Normal Negative [facility] Comment on above: Order Comment: Testi [...] the amplified DNA. Performed By: #### L [id number] ####[facility] ([facility])[address] [place] [address] ENTAMOEBA HISTOLYTICA Negative Normal Negative [facility] Comment on above: Order Comment: Testi ng [...] the amplified DNA. Performed By: #### L [id number] ####[facility] ([facility])[address] [place] [address] ENTEROTOXIGENIC E. COLI (ETEC) LT/ST Negative Normal Negative [facility] Comment on above: Order Comment: Testi [...] the amplified DNA. Performed By: #### L [id number] ####[facility] ([facility])[address] [place] [address] GIARDIA LAMBLIA Negative Normal Negative [facility] Comment [...] the amplified DNA. Performed By: #### L [id number] ####[facility] [place] [address] PLESIOMONAS SHIGELLOIDES Negative Normal Negative [facility] Comment on above: Order Comment: Testi [...] the amplified DNA. Performed By: #### L [id number] ####[facility] ([facility] [place] [address] SALMONELLA SPECIES Negative Normal Negative [facility] Comment on above: Order Comment: Testi [...] the amplified DNA. Performed By: #### L [id number] ####[facility] ([facility])[address] [place] [address] SHIGA-LIKE TOXIN-PRODUCING E. COLI (STEC) STX1/STX2 Negative Normal Negative [facility] Comment on above: Order Comment: Testi [...] the amplified DNA. Performed By: #### L [id number] ####[facility] ([facility])[address] [place] [address] SHIGELLA SPECIES Negative Normal Negative [facility] Comment on above: Order Comment: Testi ng [...] the amplified DNA. Performed By: #### L [id number] ####[facility] ([facility])[address] [place] [address] VIBRIO SPECIES Negative Normal Negative [facility] Comment on above: Order Comment: Testi [...] the amplified DNA. Performed By: #### L [id number] ####[facility] ([facility])[address] [place] [address] YERSINIA ENTEROCOLITICA Negative Normal Negative [facility] Comment on above: Order Comment: Testi [...] the amplified DNA. Performed By: #### L [id number] ####[facility] ([facility])[address] [place] [address] IGAon 05-31-2023 Magnesium [Mass/Vol] 265 mg/dL Normal 60-413 [facility] Comment on above: Performed By: #### L [id number] #### [facility] ([facility]) [address] [place] [address] Labon 05-31-2023 Lab [id number] Darrian Leal en 1970 F Date Provider Department [place] 05/31/2023 2244-[facility] MP LAB RESOURCE MP DRAW Medical Pavi No family history on file Normal [facility] Office Visiton 05-31-2023 Follow-up visit [id number] Darrian Leal en 1970 Date Provider Department [place] 05/31/2023 137-[facility], [place] [facility] No family history on file Level of Service:69852 [place] OFFICE/OUTPATIENT NEW MODERATE MDM 45-59 MINUTES Reason for Visit and Comments: Nausea [70] GERD [179189] Abdominal Pain [109428] New Patient [632] Normal [facility] PANCREATIC ELASTASE, FECALon 05-31-2023 PANCREATIC ELASTASE, FECAL 700 ug/g Normal >=100 [facility] Comment on above: Result Comment: REFE RENCE INTERVAL: Pancreatic Elastase Fecal by Immunoassay Less than 100 ug/g............Severe insufficiency 100 - 199 ug/g................Moderate insufficiency 200 ug/g or greater...........Normal INTERPRETIVE INFORMATION: Pancreatic Elastase Fecal by Immunoassay Reference intervals do not apply for infants less than one month old. Performed by [facility], [address] [place] [id number] [email or web address], Moisés Moreau MD, PHD, Lab. Director Performed By: #### L [id number] #### [facility] ([facility]) [address] [place] [address] SEDIMENTATION RATEon 023 SEDIMENTATION RATE, ERYTHROCYTE 13 mm/hr Normal <=20 [facility] Comment on above: Performed By: #### L [id number] #### [facility] ([facility]) [address] [place] [address] TISSUE TRANSGLUTAMINASE, IGA on 05-31-2023 TISSUE TRANSGLUTAMINASE, IGA <2 Normal 0-3 [facility] Comment on above: Result Comment: INTE [...] positive predictive value for disease. Performed By: [facility] [address] [place] [address] Booster Operator: Moisés Moreau MD, PhD Performed By: #### L [id number] #### [facility] ([facility]) [address] [place] [address] Refillon 05-27-2023 Refill [id number] Darrian Leal 1970 F Date Provider Department Center 05/27/2023 167-GIANA MORALES [facility] Gerardo Heal No family history on file Reason for Visit and Comments: Med Refill [[id number]] Normal [facility] Behavioral Health Telemedici neon 05-22-2023 Behavioral Health Telemedicine [id number] Mary Leal 1970 F Date Provider Department Center 05/22/2023 70728-YHPKRADHA CASTREJON [facility] Gerardo Heal No family history on file Reason for Visit and Comments: Anxiety [9] Pain [136] Normal [facility] Orders Onlyon 05-18-2023 Orders Only [id number] Darrian Leal en 1970 Date Provider Department Center 05/18/2023 TamiANDREWJASIELE [facility] Gerardo Heal No family history on file Normal [facility] Behavioral Health Telemedici neon 05-17-2023 Behavioral Health Telemedicine [id number] Darrian Lealen 1970 Date Provider Department Center 05/17/2023 KarliTeganGIANA MORALES [facility] Gerardo Heal No family history on file Level of Service:37010 [place] OFFICE/OUTPATIENT ESTABLISHED MOD MDM 30-39 MIN Reason for Visit and Comments: Telehealth Audio/video Visit [871] Normal [facility] Behavioral Health Telemedicine [id number] Darrian Lealen 1970 Date Provider Department [place] 05/17/2023 [id number]-RHLIRADHA COVARRUBIAS [facility] Gerardo Heal No family history on file Reason for Visit and Comments: Anxiety [9] MDD (Major Depressive Disorder) [401] Normal [facility] Behavioral Health Telemedici neon 04-17-2023 Behavioral Health Telemedicine [id number] Darrian Lealen 1970 Date Provider Department Center 04/17/2023 CARMEN CHRISTIANSON [facility] Gerardo Heal No family history on file Reason for Visit and Comments: Therapy [849] Telehealth Audio/video Visit [871] - Via [facility] [facility] Documentationon 04-14-2023 Documentation [id number] ElvisDarrian arriaza en 1970 Provider Department Center 04/14/2023 CARMEN CHRISTIANSON [facility] Gerardo Heal No family history on file Reason for Visit and Comments: Transfer summary [Other] - Transferring therapy services Normal [facility] Behavioral Health Telemedici neon 04-10-2023 Behavioral Health Telemedicine [id number] Elvis,Mary 1970 Date Provider Department Center 04/10/2023 CARMEN CHRISTIANSON [facility] Gerardo Heal No family history on file Reason for Visit and Comments: Therapy [849] Normal [facility] CBC AUTO DIFFon 04-05-2023 BASO # 0.0 103/ul Normal 0.0-0.1 [facility] Comment on above: Performed By: #### L ACT #### [facility] [address] [place] [address] Dr. Mirian Velasco Basophils/100 WBC (Bld) 0.8 % Normal 0.2-2.0 [facility] Comment on above: Performed By: #### L ACT #### [facility] [address] [place] [address] Dr. Mirian Velasco EO # 0.1 103/ul Normal 0.0-0.7 [facility] Comment on above: Performed By: #### L ACT #### [facility] [address] [place] [address] Dr. Mirian Velasco Eosinophils/100 WBC (Bld) 1.1 % Normal 0.9-7.0 [facility] Comment on above: Performed By: #### L ACT #### [facility] [address] [place] [address] Dr. Mirian Velasco Erythrocyte distribution width (RBC) [Ratio] 13.1 % Normal 11.0-15.0 [facility] Comment on above: Performed By: #### L ACT #### [facility] [address] [place] [address] Dr. Mirian Velasco Hematocrit (Bld) [Volume fraction] 37.6 % Normal 36.0-48.0 [facility] Comment on above: Performed By: #### L ACT #### [facility] [address] [place] [address] Dr. Mirian Velasco Hemoglobin (Bld) [Mass/Vol] 12.4 g/dL Normal 12.0-16.0 [facility] Comment on above: Performed By: #### L ACT #### [facility] [address] [place] [address] Dr. Mirian Velasco IG # 0.01 10e3/ul Normal 0.00-0.03 [facility] Comment on above: Performed By: #### L ACT #### [facility] [address] [place] [address] Dr. Mirian Velasco IG % 0.2 % Normal 0.0-0.5 [facility] Comment on above: Performed By: #### L ACT #### [facility] [address] [place] [address] Dr. Mirian Velasco LYMPH # 2.5 103/ul Normal 1.2-3.8 [facility] Comment on above: Performed By: #### L ACT #### [facility] [address] [place] [address] Dr. Mirian Velasco Lymphocytes/100 WBC (Bld) 46.2 % Normal 20.5-60.0 [facility] Comment on above: Performed By: #### L ACT #### [facility] [address] [place] [address] Dr. Mirian Velasco MANUAL DIFF REQ NO Normal [facility] Comment on above: Performed By: #### L ACT #### [facility] [address] [place] [address] Dr. Mirian Velasco MCH (RBC) [Entitic mass] 27.1 pg Normal 26.7-34.0 [facility] Comment on above: Performed By: #### L ACT #### [facility] [address] [place] [address] Dr. Mirian Velasco MCHC (RBC) [Mass/Vol] 33.0 g/dL Normal 29.9-35.2 [facility] Comment on above: Performed By: #### L ACT #### [facility] [address] [place] [address] Dr. Mirian Velasco MCV (RBC) [Entitic vol] 82.3 fL Normal 81.0-99.0 [facility] Comment on above: Performed By: #### L ACT #### [facility] [address] [place] [address] Dr. Mirian Velasco MONO # 0.4 103/ul Normal 0.3-0.8 [facility] Comment on above: Performed By: #### L ACT #### [facility] [address] [place] [address] Dr. Mirian Velasco Monocytes/100 WBC (Bld) 7.9 % Normal 1.7-12.0 [facility] Comment on above: Performed By: #### L ACT #### [facility] [address] [place] [address] [address] Mirian Velasco NEUT # 2.3 103/ul Normal 1.4-6.5 [facility] Comment on above: Performed By: #### L ACT #### [facility] [address] [place] [address] [address] Mirian Velasco Neutrophils/100 WBC (Bld) 43.8 % Normal 43.0-75.0 [facility] Comment on above: Performed By: #### L ACT #### [facility] [address] [address] [address] Mirian Velasco Platelet mean volume (Bld) [Entitic vol] 9.2 fL Critically low 9.5-13.5 [facility] Comment on above: Performed By: #### L ACT #### [facility] [address] [address] [address] Mirian Velasco PLT 318 103/ul Normal 150-450 [facility] Comment on above: Performed By: #### L ACT #### [facility] [address] [address] [address] Mirian Velasco RBC 4.57 106/ul Normal 4.20-5.40 [facility] Comment on above: Performed By: #### L ACT #### [facility] [address] [address] [address] Mirian Velasco WBC 5.3 103/ul Normal 4.0-11.0 [facility] Comment on above: Performed By: #### L ACT #### [facility] [address] [address] [address] Mirian Velasco PROF CHEM 8 (BAS METB)on Anion gap [Moles/Vol] 19.0 mmol/L Normal [facility] Comment on above: Performed By: #### H STROPN, BMP ####[facility] [address] [place] [address]Dr. Mirian Velasco Calcium [Mass/Vol] 9.6 mg/dL Normal 8.5-10.1 [facility] Comment on above: Performed By: #### H STROPN, BMP ####[facility] [address] [address]Dr. Mirian Velasco Chloride [Moles/Vol] 103 mmol/L Normal 98-107 [facility] Comment on above: Performed By: #### H STROPN, BMP ####[facility] [address] [address]Dr. Mirian Velasco CO2 [Moles/Vol] 23.1 mmol/L Normal 21.0-32.0 [facility] Comment on above: Performed By: #### H STROPN, BMP ####[facility] [address] [place] [address]Dr. Mirian Velasco Creatinine [Mass/Vol] 0.84 mg/dL Normal 0.55-1.02 [facility] Comment on above: Performed By: #### H STROPN, BMP ####[facility] [address] [place], [place] [address]Dr. Mirian Velasco EGFR-AF [place] >60 Normal >=60 [facility] Comment on above: Performed By: #### H STROPN, BMP ####[facility] [address] [place], [place] [address]Dr. Mirian Velasco EGFR-NON AF [place] >60 Normal >=60 [facility] Comment on above: Performed By: #### H STROPN, BMP ####[facility] [address] [address]Dr. Mirian Velasco Glucose [Mass/Vol] 129 mg/dL Critically high 74-106 [facility] Comment on above: Performed By: #### H STROPN, BMP ####[facility] [address] [place] [address]Dr. Mirian Velasco Potassium [Moles/Vol] 3.1 mmol/L Critically low 3.5-5.1 [facility] Comment on above: Performed By: #### H STROPN, BMP ####[facility] [address] [address]Dr. Mirian Velasco Sodium [Moles/Vol] 142 mmol/L Normal 136-[address] [facility] Comment on above: Performed By: #### H FAUSTO, BMP ####[facility] [address] [place] [id number]. Mirian Velasco Urea nitrogen [Mass/Vol] 12.0 mg/dL Normal 7.0-18.0 [facility] Comment on above: Performed By: #### H FAUSTO, BMP ####[facility] [address] [place] [id number]. Mirian Velasco Urea nitrogen/Creatinine [Mass ratio] 14.3 mg/mg Normal [facility] Comment on above: Performed By: #### H FAUSTO, BMP ####[facility] [address] [address]Dr. Mirian Velasco TROPONIN, HIGH SENSITIVITYon 04-05-2023 HSTROP 5.6 pg/mL Normal 4.0-51.3 [facility] Comment on above: Result Comment: CUT- OFF POINTS HAVE BEEN ESTABLISHED BASED ON THE FOURTH UNIVERSAL DEFINITIONS OF MYOCARDIAL INFARCTION. THE UPPER REFERENCE LIMIT (URL) OF TROPONIN, DEFINED THE 99TH PERCENTILE OF cTnI DISTRIBUTION IN A REFERENCE POPULATION, HAS BEEN CONFIRMED THE DECISION THRESHOLD FOR IA DIAGNOSIS. Performed By: #### H FAUSTO, BMP ####[facility] [address] [place] [id number]. Mirian Velasco Refillon 03-21-2023 Refill [id number] Darrian Leal 1970 Date Provider Department Center 03/21/2023 GIANA JAMES [facility] Gerardo Heal No family history on file Reason for Visit and Comments: Med Refill [[id number]] Normal [facility] Behavioral Health Telemedici neon 03-20-2023 Behavioral Health Telemedicine [id number] Mary Leal 1970 Date Provider Department [place] 03/20/2023 Keith1CARMEN GALINDO [facility] Gerardo Heal No family history on file Reason for Visit and Comments: Therapy [849] Normal [facility] FAT, FECAL QUALon 03-16-2023 FAT, FECAL - NEUTRAL Normal [facility] Comment on above: Order Comment: Speci men Type: STOOL SPECIMENOrdering Facility: [facility] Address: [address] [place] [address] Performed By: #### F FATQL ####[facility] [id number] [place] [address] FAT, FECAL - SPLIT Normal Normal Normal [facility] Comment on above: Order Comment: Speci men Type: STOOL SPECIMENOrdering Facility: [facility] Address: [address] [place] [address] Result Comment: INTE RPRETIVE INFORMATION: Fecal Fat Qualitative Neutral fats include the monoglycerides, diglycerides, and triglycerides while split fats are the free fatty acids that are liberated from them. Impaired synthesis or secretion of pancreatic enzymes or bile may cause an increase in neutral fats while an increase in split fats suggests impaired absorption of nutrients. Performed By: [facility] [address] [place] [address] Booster Operator: Moisés Moreau MD, PhD Performed By: #### F FATQL ####[facility] [id number] [place] [address] Behavioral Health Telemedici hardy 03-06-2023 Behavioral Health Telemedicine [id number] Mary Leal 1970 F Date Provider Department [place] 03/06/2023 CARMEN [facility]STIANSON [facility] Gerardo Heal No family history on file Reason for Visit and Comments: Therapy [849] Normal [facility] CBC AUTO DIFFon 03-06-2023 BASO # 0.1 103/ul Normal 0.0-0.1 [facility] Comment on above: Performed By: #### L ACT #### [facility] [address] [address] [address] Mirian Velasco Basophils/100 WBC (Bld) 0.8 % Normal 0.2-2.0 [facility] Comment on above: Performed By: #### L ACT #### [facility] [address] [address] [address] Mirian Velasco EO # 0.1 103/ul Normal 0.0-0.7 [facility] Comment on above: Performed By: #### L ACT #### [facility] [address] [place] [address] Dr. Mirian Velasco Eosinophils/100 WBC (Bld) 1.4 % Normal 0.9-7.0 [facility] Comment on above: Performed By: #### L ACT #### [facility] [address] [place] [address] Dr. Mirian Velasco Erythrocyte distribution width (RBC) [Ratio] 13.1 % Normal 11.0-15.0 [facility] Comment on above: Performed By: #### L ACT #### [facility] [address] [place] [address] Dr. Mirian Velasco Hematocrit (Bld) [Volume fraction] 37.9 % Normal 36.0-48.0 [facility] Comment on above: Performed By: #### L ACT #### [facility] [address] [place] [address] Dr. Mirian Velasco Hemoglobin (Bld) [Mass/Vol] 12.7 g/dL Normal 12.0-16.0 [facility] Comment on above: Performed By: #### L ACT #### [facility] [address] [place] [address] Dr. Mirian Velasco IG # 0.01 10e3/ul Normal 0.00-0.03 [facility] Comment on above: Performed By: #### L ACT #### [facility] [address] [place] [address] Dr. Mirian Velasco IG % 0.2 % Normal 0.0-0.5 [facility] Comment on above: Performed By: #### L ACT #### [facility] [address] [place] [address] Dr. Mirian Velasco LYMPH # 1.8 103/ul Normal 1.2-3.8 [facility] Comment on above: Performed By: #### L ACT #### [facility] [address] [place] [address] Dr. Mirian Velasco Lymphocytes/100 WBC (Bld) 27.2 % Normal 20.5-60.0 [facility] Comment on above: Performed By: #### L ACT #### [facility] [address] [place] [address] Dr. Mirian Velasco MANUAL DIFF REQ NO Normal [facility] Comment on above: Performed By: #### L ACT #### [facility] [address] [place] [address] Dr. Mirian Velasco MCH (RBC) [Entitic mass] 27.5 pg Normal 26.7-34.0 [facility] Comment on above: Performed By: #### L ACT #### [facility] [address] [place] [address] Dr. Mirian Velasco MCHC (RBC) [Mass/Vol] 33.5 g/dL Normal 29.9-35.2 [facility] Comment on above: Performed By: #### L ACT #### [facility] [address] [place] [address] Dr. Mirian Velasco MCV (RBC) [Entitic vol] 82.0 fL Normal 81.0-99.0 [facility] Comment on above: Performed By: #### L ACT #### [facility] [address] [place] [address] Dr. Mirian Velasco MONO # 0.4 103/ul Normal 0.3-0.8 [facility] Comment on above: Performed By: #### L ACT #### [facility] [address] [place] [address] Dr. Mirian Velasco Monocytes/100 WBC (Bld) 5.5 % Normal 1.7-12.0 [facility] Comment on above: Performed By: #### L ACT #### [facility] [address] [place] [address] Dr. Mirian Velasco NEUT # 4.3 103/ul Normal 1.4-6.5 [facility] Comment on above: Performed By: #### L ACT #### [facility] [address] [place] [address] Dr. Mirian Velasco Neutrophils/100 WBC (Bld) 64.9 % Normal 43.0-75.0 [facility] Comment on above: Performed By: #### L ACT #### [facility] [address] [address] [address] Mirian Velasco Platelet mean volume (Bld) [Entitic vol] 9.4 fL Critically low 9.5-13.5 [facility] Comment on above: Performed By: #### L ACT #### [facility] [address] [address] [address] Mirian Velasco PLT 317 103/ul Normal 150-450 [facility] Comment on above: Performed By: #### L ACT #### [facility] [address] [address] [address] Mirian Velasco RBC 4.62 106/ul Normal 4.20-5.40 [facility] Comment on above: Performed By: #### L ACT #### [facility] [address] [address] [address] Mirian Velsaco WBC 6.6 103/ul Normal 4.0-11.0 [facility] Comment on above: Performed By: #### L ACT #### [facility] [address] [address] [address] Mirian Velasco CULTURE BLOODon 03-06-2023 Microscopic examination of blood, culture Culture Observations: NO GROWTH AT 5 DAYS. Normal [facility] Comment on above: Performed By: #### B LDCX2 ####[facility] [address] [address]Dr. Mirian Velasco Microscopic examination of blood, culture Culture Observations: NO GROWTH AT 5 DAYS. Normal [facility] Comment on above: Performed By: #### B LDCX1 #### [facility] [address] [address] [address] Mirian Velasco LACTATE/LACTIC ACIDon 2022 Lactate [Moles/Vol] 2.2 mmol/L Critically high 0.4-2.0 [facility] Comment on above: Performed By: #### L ACT #### [facility] [address] [address] [address] Mirian Velasco LIPASEon 03-06-2023 Lipase [Catalytic activity/Vol] 53.0 U/L Critically low 73.0-393.0 [facility] Comment on above: Performed By: #### L ACT #### [facility] [address] [address] [address] Mirian Velasco PROF 14(COMP METB)on 023 Albumin [Mass/Vol] 3.4 g/dL Normal 3.4-5.[address] [facility] Comment on above: Performed By: #### L ACT #### [facility] [address] [address] [address] Mirian Velasco Albumin/Globulin [Mass ratio] 1.0 {ratio} Normal [facility] Comment on above: Performed By: #### L ACT #### [facility] [address] [address] [address] Mirian Velasco ALP [Catalytic activity/Vol] 123 U/L Critically high 46-116 [facility] Comment on above: Performed By: #### L ACT #### [facility] [address] [address] [address] Mirian Velasco ALT [Catalytic activity/Vol] 33 U/L Normal 14-59 [facility] Comment on above: Performed By: #### L ACT #### [facility] [address] [address] [address] Mirian Velasco Anion gap [Moles/Vol] 13.1 mmol/L Normal [facility] Comment on above: Performed By: #### L ACT #### [facility] [address] [address] [address] Mirian Velasco AST [Catalytic activity/Vol] 31 U/L Normal 15-37 [facility] Comment on above: Performed By: #### L ACT #### [facility] [address] [address] [address] Mirian Velasco Bilirubin [Mass/Vol] 0.3 mg/dL Normal 0.2-1.0 [facility] Comment on above: Performed By: #### L ACT #### [facility] [address] [address] [address] Mirian Velasco Calcium [Mass/Vol] 8.9 mg/dL Normal 8.5-10.[address] [facility] Comment on above: Performed By: #### L ACT #### [facility] [address] [address] [address] Mirian Velasco Chloride [Moles/Vol] 107 mmol/L Normal 98-107 [facility] Comment on above: Performed By: #### L ACT #### [facility] [address] [address] [address] Mirian Velasco CO2 [Moles/Vol] 25.6 mmol/L Normal 21.0-32.0 [facility] Comment on above: Performed By: #### L ACT #### [facility] [address] [address] [address] Mirian Velasco Creatinine [Mass/Vol] 0.70 mg/dL Normal 0.55-1.02 [facility] Comment on above: Performed By: #### L ACT #### [facility] [address] [address] [address] Mirian Velasco EGFR-AF [place] >60 Normal >=60 [facility] Comment on above: Performed By: #### L ACT #### [facility] [address] [address] [address] Mirian Velasco EGFR-NON AF [place] >60 Normal >=60 [facility] Comment on above: Performed By: #### L ACT #### [facility] [address] [address] [address] Mirian Velasco Globulin (S) [Mass/Vol] 3.4 g/dL Normal [facility] Comment on above: Performed By: #### L ACT #### [facility] [address] [address] [address] Mirian Velasco Glucose [Mass/Vol] 125 mg/dL Critically high 74-106 [facility] Comment on above: Performed By: #### L ACT #### [facility] [address] [address] [address] Mirian Velasco Potassium [Moles/Vol] 3.7 mmol/L Normal 3.5-5.1 [facility] Comment on above: Performed By: #### L ACT #### [facility] [address] [address] [address] Mirian Velasco Protein [Mass/Vol] 6.8 g/dL Normal 6.4-8.2 [facility] Comment on above: Performed By: #### L ACT #### [facility] [address] [place] [address] Dr. Mirian Velasco Sodium [Moles/Vol] 142 mmol/L Normal 136-145 [facility] Comment on above: Performed By: #### L ACT #### [facility] [address] [address] [address] Mirian Velasco Urea nitrogen [Mass/Vol] 16.0 mg/dL Normal 7.0-18.0 [facility] Comment on above: Performed By: #### L ACT #### [facility] [address] [place] [address] Dr. Mirian Velasco Urea nitrogen/Creatinine [Mass ratio] 22.9 mg/mg Normal [facility] Comment on above: Performed By: #### L ACT #### [facility] [address] [place] [address] Dr. Mirian Velasco PROTIMEon 03-06-2023 INR Coag (PPP) [Relative time] {INR} Normal [facility] Comment on above: Performed By: #### P T #### [facility] [address] [place] [address] Dr. Mirian Velasco INR GUIDELINES SEE BELOW Normal [facility] Comment on above: Result Comment: SAMEER RED INR: 2.0 - 3.0 CONDITIONS NOT LISTED BELOW 2.5 - 3.5 FOR PROSTHETIC HEART VALVE REPLACEMENT 2.5 - 3.5 RECURRENT THROMBOSIS Performed By: #### P T #### [facility] [address] [place] [address] Dr. Mirian Velasco PT Coag (PPP) [Time] 9.8 s Normal 9.0-11.6 [facility] Comment on above: Performed By: #### P T #### [facility] [address] [place] [address] Dr. Mirian Velasco TROPONIN, HIGH SENSITIVITYon 03-06-2023 HSTROP 4.4 pg/mL Normal 4.0-51.3 [facility] Comment on above: Result Comment: CUT- OFF POINTS HAVE BEEN ESTABLISHED BASED ON THE FOURTH UNIVERSAL DEFINITIONS OF MYOCARDIAL INFARCTION. THE UPPER REFERENCE LIMIT (URL) OF TROPONIN, DEFINED THE 99TH PERCENTILE OF cTnI DISTRIBUTION IN A REFERENCE POPULATION, HAS BEEN CONFIRMED THE DECISION THRESHOLD FOR IA DIAGNOSIS. Performed By: #### L ACT #### [facility] [address] [address] [address] Mirian Velasco Bacteria identified Aer cx N om (Unsp spec)Ordered By: Niecy Duron on 03-02-2023 Superficial Wound Culture Methicillin Resis Staph Aureus [facility] Superficial Wound Cultureon 03-02-2023 Superficial Wound Culture [...] RESISTANT TO ALL B-LACTAM DRUGS. PERFORMED BY: [place] [address] PATHOLOGIST CHANGE MANAGEMENT LEVAR CASE M.D. [facility] Comment on above: Performed By: #### T 4T, ESR, URIC, CRP, TSH3 #### [facility] [address] [place] [address] [place] #### RA, CHUYITA #### [facility] , Clinical Supporton 3 Clinical Support [id number] Darrian Leal en 1970 F Date Provider Department [place] 02/27/2023 CARMEN CHRISTIANSON [facility] Gerardo [facility] No family history on file Reason for Visit and Comments: Therapy [849] [facility] 36on 02-20-2023 36 I just sent the scri pt over and signed her note. [facility] Behavioral Health Telemedici neon 02-20-2023 Behavioral Health Telemedicine [id number] Mary Leal 1970 F Date Provider Department [place] 02/20/2023 CARMEN [facility]SON [facility] No family history on file Reason for Visit and Comments: Therapy [849] [facility] CT LSPINE WO CONon 3 CT LSPINE [...] by: NANCY BELLE Date: 2023-02-19 06:42 Normal [facility] 36on 02-17-2023 36 In [employer] Suspension Aide spoke with cecilia montemayor in regards to lunesta, patient reports Giana was increasing the lunesta to 3mg, newspaper writer read last note plan reports 2mg lunesta. In School Suspension Aide will attempt to contact Giana Morales. In School Suspension Aide is covering while Giana is out of the clinic. Normal [facility] 36 Patient needs Lunest a sent to [facility] in [place]. Had an appt yesterday with you, and pharmacy does not have. Normal [facility] Telephoneon 02-17-2023 Telephone [id number] Darrian Leal 1970 Provider Department Center 02/17/2023 PONCE MCKEON [facility] Gerardo Heal No family history on file [facility] Telephone [id number] Darrian Leal en 1970 Provider Department Center 02/17/2023 JACOB GIANA [facility] Gerardo Heal No family history on file Reason for Visit and Comments: Medication Question [827] - Pt is upset that her Lunesta has not been increased as discussed. [facility] Behavioral Health Telemedici neon 02-16-2023 Behavioral Health Telemedicine [id number] Mary Leal 1970 Provider Department Center 02/16/2023 JACOBJASIELE [facility] Gerardo Heal No family history on file Level of Service:07461 [place] OFFICE/OUTPATIENT ESTABLISHED MOD MDM 30-39 MIN Reason for Visit and Comments: Telehealth Audio/video Visit [871] - [email or web address] [facility] Behavioral Health Telemedici neon 02-13-2023 Behavioral Health Telemedicine [id number] Darrian Lealen 1970 Provider Department Center 02/13/2023 CARMEN CHRISTIANSON [facility] Gerardo Heal No family history on file Reason for Visit and Comments: Therapy [849] - [facility] Behavioral Health Telemedici neon 02-06-2023 Behavioral Health Telemedicine [id number] Darrian Lealen 1970 Provider Department Center 02/06/2023 CARMEN CHRISTIANSON [facility] Gerardo Heal No family history on file Reason for Visit and Comments: Therapy [849] [facility] Behavioral Health Telemedici neon 02-02-2023 Behavioral Health Telemedicine [id number] Darrian Lealen 1970 Date Provider Department Center 02/02/2023 GIANA JAMES [facility] Gerardo Heal No family history on file Level of Service:12920 [place] OFFICE/OUTPATIENT ESTABLISHED MOD MDM 30-39 MIN Reason for Visit and Comments: Telehealth Audio/video Visit [871] - [email or web address] [facility] Behavioral Health Telemedici neon 01-23-2023 Behavioral Health Telemedicine [id number] Mary Leal 1970 F Date Provider Department Center 01/23/2023 Yohana-CARMEN DORSEY [facility] Gerardo Heal No family history on file Reason for Visit and Comments: Therapy [849] [facility] 36on 01-16-2023 36 Spoke with pt to con firm her appointment this morning was cancelled per her request. Pt stated she wasn't feeling well. Her next appointment is scheduled for 01/23/23. [facility] 36 Patient called and w ants a return call from provider. [facility] Hussain 01-16-2023 CNPN Telephone (BHAVIN) ----- MARY LEAL ([id number]) 1970 F Date Time Provider Department 01/16/23 MOUNIKA HERNANDEZ During your visit today, we recorded the following information about you: Mounika Hernandez PA-C 01/16/2023 1:09 PM Signed Patient was scheduled for virtual PACC appt at 1300 today. Patient did not check in for visit. Called patient at [phone] to see if they needed any assistance [...] the AM and 4 mg PM - feufcfbxvet-yuvzmgolq-fxh anter (TRELEGY ELLIPTA) 100-62.5-25 mcg Inhale 1 [...] Status:Closed by MOUNIKA HERNANDEZ on 01/16/[address] [facility] HISTORY PHYSICALon HISTORY PHYSICAL HNO ID: [id number] Author: Mounika Hernandez PA-C Service: ? Author Type: Physician Insulation Extruder Operator Type: HANDP Filed: 01/16/2023 1:24 PM Note Text: This is a virtual visit using Omegawave video visit. It required patient-provider interaction for the medical decision making as documented below. I have communicated my name and active licensure. The patient's identity and physical location were verified at the time of this visit. Either the patient or their legal environmental marketing representative has been informed of the risks and benefits of and alternatives to treatment through a remote evaluation and consents to proceed with the evaluation remotely. Surgeon: Winston Hannah DO Type of surgery: GEN SURG: POP Patient scheduled for surgery on 02/08/23 . Surgery Location: [facility] Diagnosis: Preop examination (primary encounter diagnosis) Nausea [...] in the AM and 4 mg PM gwpzgsrfmsy-lqvpqjxyj-vlb anter (TRELEGY ELLIPTA) 100-62.5-25 mcg Inhale 1 [...] PA-C January 16, 2023 12:[address] [facility] Telephoneon 01-16-2023 Telephone [id number] Darrian Leal en 1970 F Date Provider Department Center 01/16/2023 Yohana-CARMEN DORSEY [facility] Gerardo Heal No family history on file Reason for Visit and Comments: Appointment [375] Normal [facility] Telephone [id number] Darrian Leal en 1970 F Date Provider Department Center 01/16/2023 2714-SE AYALA [facility] Gerardo Heal No family history on file Normal [facility] CNPNon 01-11-2023 CNPN Telephone ([employer]) ----- MARY LEAL ([id number]) 1970 F Date Time Provider Department 01/11/23 WINSTON HNANAH GENSSP During your visit today, we recorded the following information about you: Berta Ann RN 01/11/2023 10:08 AM Signed Procedure pended for 02/08/23. Pt aware of need for PACC. Pre-op instructions reviewed, will send to pt's [facility], per pt request. Post op appt scheduled. No other questions at this time. Berta HENSON, RN Specialty Cloth Washer Allergies As of Date: 01/11/2023 Noted Allergy Reaction RISPERIDONE 07/27/2021 5 - Intolerance Comments: Breast discharge Date Reviewed: 12/15/2022 Reviewed by: Mary Obrien MD - Fully Assessed Reason for Visit: Schedule Procedure [Other] Primary Visit Diagnosis:Gastroparesis [K31.84] Order(s):EGD - THERAPEUTIC, EUS, OR TUBE INTERVENTIONS [GI2] Order #: [id number] FUTURE Prescriptions as of 01/11/2023 - sucralfate [...] the AM and 4 mg PM - rjiakzavmoh-xgekvxlwq-vcg anter (TRELEGY ELLIPTA) 100-62.5-25 mcg Inhale 1 [...] Encounter Status:Closed by WINSTON HANNAH on 01/11/23 [facility] Refillon 01-11-2023 Refill [id number] Darrian Leal en 1970 F Date Provider Department Center 01/11/2023 GIANA JAMES [facility] on file Reason for Visit and Comments: Med Refill [[id number]] [facility] Behavioral Health Telemedici neon 01-06-2023 Behavioral Health Telemedicine [id number] Darrian Lealen 1970 Date Provider Department [place] 01/06/2023 ANNETTE BRYAN [facility] history on file Level of Service:16893 [place] OFFICE/OUTPATIENT ESTABLISHED LOW MDM 20-29 MIN Reason for Visit and Comments: Telehealth Audio/video Visit [871] [facility] Refillon 01-03-2023 Refill [id number] Darrian eLal en 1970 Date Provider Department [place] 01/03/2023 ANNETTE BRYAN [facility] No family history on file Reason for Visit and Comments: Med Refill [[id number]] [facility] Behavioral Health Telemedici neon 01-02-2023 Behavioral Health Telemedicine [id number] Darrian Lealen 1970 Provider Department [place] 01/02/2023 CARMEN CHRISTIANSON [facility] Gerardo Heal No family history on file Reason for Visit and Comments: Therapy [849] Telehealth Audio/video Visit [871] - [employer] [facility] XR ESOPHAGRAMon 12-26-2022 XR ESOPHAGRAM * * [...] the procedure. IMPRESSION: SMALL VOLUME GASTROESOPHAGEAL REFLUX. Locker Room Attendant: PSCSiria Transcribe Date/Time: Dec 26 2022 3:20P Dictated by : MERISSA AGARWAL, This examination was interpreted and the report reviewed and electronically signed by: TARIQ MILLER MD on Dec 26 2022 3:25PM EST [id number] Normal [facility] Behavioral Health Telemedici neon 12-12-2022 Behavioral Health Telemedicine [id number] Mary Leal 1970 Date Provider Department Center 12/12/2022 CARMEN CHRISTIANSON [facility] Gerardo Heal No family history on file Reason for Visit and Comments: Therapy [849] Normal [facility] Behavioral Health Telemedici neon 12-09-2022 Behavioral Health Telemedicine [id number] ElvisMary 1970 Date Provider Department [place] 12/09/2022 ANNETTE BRYAN [facility] Gerardo Heal No family history on file Level of Service:43705 [place] OFFICE/OUTPATIENT ESTABLISHED MOD [facility] 30-39 MIN Reason for Visit and Comments: Telehealth Audio/video Visit [001] - [email or web address] Normal [facility] Hussain 12-09-2022 KWESIN Telephone ([facility]) ----- MARY LEAL ([id number]) 1970 F Date Time Provider Department 12/09/22 MARY OBRIEN [facility] During your visit today, we recorded the following information about you: Madyson Villanueva Pss 12/09/2022 3:23 PM Signed Patient called and left message regarding post operative 03/2022 total laparoscopic colectomy and concerns regarding symptoms and follow up testing return call to [phone] See Wong RN 12/12/2022 9:[address] Obrien sent my chart message to respond to this phone encounter and previous my chart message. Allergies As of Date: 12/09/2022 Noted Allergy Reaction RISPERIDONE 07/27/2021 5 - Intolerance Comments: Breast discharge Date Reviewed: 12/07/2022 Reviewed by: Marley Mitchell RN - Fully Assessed Reason for Visit: Patient Question [6128] Prescriptions as of 12/12/2022 - sucralfate (CARAFATE) [...] the AM and 4 mg PM - hndkyryysae-tqsvpncbg-mco anter (TRELEGY ELLIPTA) 100-62.5-25 mcg Inhale 1 [...] Encounter Status:Closed by SEE WONG on 12/12/22 [facility] Hussain 12-08-2022 CNPN Telephone (GASTSP) ----- MARY LEAL ([id number]) 1970 F Date Time Provider Department 12/08/22 [facility]RA [facility] During your visit today, we recorded the [...] patient Summary: As noted Concerns: Procedure results Cloth Washer plan for next outreach: Will follow up [...] the AM and 4 mg PM - mfegugoponi-tdqjquxir-ggb anter (TRELEGY ELLIPTA) 100-62.5-25 mcg Inhale 1 [...] Encounter Status:Closed by NELSY PEPE on 01/25/23 [facility] NURSING PROGon 12-08-2022 NURSING PROG HNO ID: [id number] Author: Lisa Contreras, MAKI Service: Nursing Author Type: Registered Nurse Type: Nursing Progress Note Filed: 12/08/2022 11:28 AM Note Text: [facility] POST PROCEDURE FOLLOW UP CALL [phone] (home) Date Phone Call Made: 12/08/2022 Attempt: [...] experience more pleasant? No Lisa Contreras RN [facility] ANES POSTPROC EVALon 023 ANES POSTPROC EVAL HNO ID: [id number] Author: Andres Sheets DO Service: Anesthesiology Author Type: Anesthesiologist Type: Anesthesia Postprocedure Evaluation Filed: 12/07/2022 12:44 PM Note Text: POST ANESTHESIA EVALUATION NOTE : 1970 Procedure Summary Date: 12/07/22 Room / Location: [facility] Anesthesia Start: 1034 Anesthesia Stop: [...] Documentation SIGNATURE: Andres Sheets DO PATIENT NAME: Mray Leal DATE: December 07, 2022 TIME: 12:44 PM CSN: [id number] [facility] ANES PRE-OPon 12-07-2022 ANES PRE-OP HNO ID: [id number] Author: Andres Sheets DO Service: Anesthesiology Author Type: Anesthesiologist Type: Anesthesia Preprocedure Evaluation Filed: 12/07/2022 9:42 AM Note Text: ANESTHESIOLOGY DAY OF SURGERY NOTE : 1970 Procedure Information Date/Time: 12/07/22 1030 Scheduled providers: Winston Hannah DO Procedures: EGD - THERAPEUTIC, EUS, OR TUBE INTERVENTIONS PH MONTIEL INSERT OFF MEDS Location: [facility] Estimated body mass index is [...] the AM and 4 mg PM - uyvleheweam-gygtvgiyl-lyt anter (TRELEGY ELLIPTA) 100-62.5-25 mcg Inhale 1 [...] December 07, 2022 TIME: 9:40 AM CSN: [id number] [facility] HISTORY PHYSICALon 3 HISTORY PHYSICAL HNO ID: [id number] Author: Soraida Mathis PA-C Service: Gastroenterology Author Type: Physician Insulation Extruder Operator Type: HANDP Filed: 12/07/2022 9:48 AM [...] PAIN, N/V/D Medication reconciliation list reviewed in [facility]. Past medical history, past surgical history, social history and family history reviewed and updated in [facility]. ALLERGIES Allergies: Risperidone Intolerance Comment:Breast discharge SEE [facility] BP 109/74 Pulse [...] Mary Leal DATE: 12/07/2022 TIME: 9:41 AM [facility] Upper GI endoscopyon 023 Upper GI endoscopy [facility] Gastrointestinal Endoscopy Patient Name: Mary Leal [...] by the physician, the nurse and the coal or ore controller in the pre-procedure area in the endoscopy [...] previously scheduled. Procedure Code(s): --- Professional --- 01526, Esophagogastroduodenoscop y, flexible, transoral; with dilation of gastric/duodenal stricture(s) (eg, balloon, bougie) Diagnosis Code(s): --- Professional --- K21.00, Gastro-esophageal reflux disease with esophagitis, without bleeding K31.84, Gastroparesis CPT copyright 2020 [employer]. All rights reserved. The codes documented in this report are preliminary and upon superintendent marine oil terminal review may be revised to meet current compliance requirements. Attending Participation: I personally performed the entire procedure. Scope In: 10:39:12 AM Scope Out: 10:46:13 AM MD Winston Diaz MD 12/07/2022 10 (more content not included)... [facility] 36on 12-05-2022 36 I called patient jabier mcbride at [phone], she reported to me she stopped Vyvanse 30mg after 2 days due to insomnia. We reviewed her requip dosages, and I asked her to reduce her night dose to 2mg at bedtime and her morning dose to 1mg to prevent overactivation. Normal [facility] ANES POSTPROC EVALon 023 ANES POSTPROC EVAL HNO ID: [id number] Author: Annabel Burton MD Service: Anesthesiology Author Type: Physician Type: Anesthesia Postprocedure Evaluation Filed: 12/05/2022 2:01 PM Note Text: POST ANESTHESIA EVALUATION NOTE : 1970 Procedure Summary Date: 12/05/22 Room / Location: [facility] Anesthesia Start: 900 Anesthesia Stop: [...] December 05, 2022 TIME: 2:00 PM CSN: [id number] [facility] ANES PRE-OPon 12-05-2022 ANES PRE-OP HNO ID: [id number] Author: Annabel Burton MD Service: Anesthesiology Author Type: Physician Type: Anesthesia Preprocedure Evaluation Filed: 12/05/2022 8:28 AM Note Text: ANESTHESIOLOGY DAY OF SURGERY NOTE : 1970 Procedure Information Date/Time: 12/05/22 0900 Scheduled providers: Isra Masters DO Procedure: SIGMOIDOSCOPY Location: [facility] Estimated body mass index is 24.55 [...] the AM and 4 mg PM - iisuajwevin-cgiwwrbbz-gvn anter (TRELEGY ELLIPTA) 100-62.5-25 mcg Inhale 1 [...] December 05, 2022 TIME: 8:26 AM CSN: [id number] [facility] Flexible Sigmoidoscopyon Flexible sigmoidoscopy [facility] Gastrointestinal Endoscopy Patient Name: Mary Leal Procedure Date: 12/05/2022 8:55 AM Date of : 1970 Admit Type: Outpatient Age: 52 Room: [place] [address] Gender: Female Note Status: Finalized Attending MD: [...] present medications. Procedure Code(s): --- Professional --- 94120, 52, Sigmoidoscopy, flexible; diagnostic, including collection of specimen(s) by brushing or washing, when performed (separate procedure) Diagnosis Code(s): --- Professional --- K59.00, Constipation, unspecified CPT copyright 2020 [employer]. All rights reserved. The codes documented in this report are preliminary and upon superintendent marine oil terminal review may be revised to meet current compliance requirements. Attending Participation: I personally performed the entire procedure. Scope In: 9:07:04 AM Scope Out: 9:09:[address] Isra Masters, DO Isra Masters DO 12/05/2022 9:13:05 AM This report has been signed electronically by Isra Masters DO Number of Addenda: 0 Note Initiated On: 12/05/2022 8:55 AM Estimated Blood Loss: Estimated blood loss: none. [facility] HISTORY PHYSICALon HISTORY PHYSICAL HNO ID: [id number] Author: Lashanda Dorado PA-C Service: Gastroenterology Author Type: Physician Insulation Extruder Operator Type: HANDP Filed: 12/05/2022 8:43 AM [...] PAIN, N/V/D Medication reconciliation list reviewed in [facility]. Past medical history, past surgical history, social history and family history reviewed and updated in [facility]. ALLERGIES Allergies: Risperidone Intolerance Comment:Breast discharge SEE [facility] There were no [...] Mary Leal DATE: 12/05/2022 TIME: 8:42 AM [facility] NURSING PROGon 12-05-2022 NURSING PROG HNO ID: [id number] Author: Lisa Contreras RN Service: ? Author Type: Registered Nurse Type: Nursing Progress Note Filed: 12/05/2022 1:07 PM Note Text: [facility] ENDOSCOPY PRE PROCEDURE CALL Naderjeff. I'm calling from [facility] endoscopy to provide you with the information for your surgery/procedure tomorrow. Spoke to: Patient CONFIRM Procedure Planned with patient:Esophagogastroduo denoscopy(EGD) with or without biopies based on clinical findings, removal of polyps or lesions Are you familiar with where [facility] is located?yes Address [address] [facility] Patient instructed to enter through the main hospital entrance off [address] through the revolving doors and check in at the main desk with your dedicated regional driver's license and insurance card. yes When anesthesia or sedation is being given: Patient instructed you must have an adult dedicated regional driver because you will not be able to work or drive for the rest of the day after your test.yes Can you please confirm the name and relationship of your dedicated regional driver. tbd What is the best number for your dedicated regional driver to be reached at tomorrow for updates? tbd Your dedicated regional driver is allowed to wait here with [...] Do not wear makeup, lotion, or finger russian. yes Patient instructed: Please bring a list [...] given Any barriers to Patient learning (confusion? Artifacts Conservator needed?): Patient/Patient Brusher Warp responded appropriately on phone. If patient needs to reschedule please call: [phone] [facility] phone number: [phone] Type of instruction given: Verbal by telephone contact. [facility] 36on 12-02-2022 36 Pt is still struggli ng with sleeping [facility] 12-02-2022 CNPN Telephone (NIQ) ----- MARY LEAL ([id number]) 1970 F Date Time Provider Department 12/02/22 YONI TUTTLE During your visit today, we recorded the following information about you: Barber GuamanMartinez 12/02/2022 8:42 AM Signed SLEEP PHONE Name of caller: Mary Leal Relationship to patient : Self In-state or [id number]-rz-iaaol patient: In-State Was permission obtained from patient? Yes Patient identified by Name and Date of . ( Mary Leal, 1970). Yes Reason for Call : Patient said her and Patricia was chatting through my chart and Patricia called her about 5:15 yesterday. Number to return call [phone] Okay to leave a message ? Yes Last office visit 10/14/[address] Kusum vines Next office visit 01/13/[address] Kusum Benton, RN 12/14/2022 5:19 PM Signed Several attempts [...] the AM and 4 mg PM - lwwajtzkzgx-hegpwqjgg-ztu anter (TRELEGY ELLIPTA) 100-62.5-25 mcg Inhale 1 [...] Encounter Status:Closed by PATRICIA BENTON on 12/20/22 [facility] NURSING PROGon 12-02-2022 NURSING PROG HNO ID: [id number] Author: Isra Harman RN Service: ? Author Type: Registered Nurse Type: Nursing Progress Note Filed: 12/02/2022 10:54 AM Note Text: [facility] endoscopy to provide you with the information for your surgery/procedure tomorrow. Spoke to: Patient CONFIRM Procedure Planned with patient: Are you familiar with where [facility] is located?yes Address [address] [facility] Patient instructed to enter through the main hospital entrance off [address] through the revolving doors and check in at the main desk with your dedicated regional driver's license and insurance card. yes When anesthesia or sedation is being given: Patient instructed you must have an adult dedicated regional driver because you will not be able to work or drive for the rest of the day after your test.yes Can you please confirm the name and relationship of your dedicated regional driver. Rich What is the best number for your dedicated regional driver to be reached at tomorrow for updates? 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 yes Patient instructed: Please bring a list [...] given Any barriers to Patient learning (confusion? Artifacts Conservator needed?): Patient/Patient Brusher Warp responded appropriately on phone. If patient needs to reschedule please call: [phone] [facility] phone number: [phone] Type of instruction given: Verbal by telephone contact. [facility] Telephoneon 12-02-2022 Telephone [id number] Darrian Leal 1970 Provider Department Center 12/02/2022 ANNETTE BRYAN [facility] STUDENT Gerardo Pool No family history on file Reason for Visit and Comments: Insomnia [[id number]] [facility] Behavioral Health Telemedici neon 11-30-2022 Behavioral Health Telemedicine [id number] Mary Leal 1970 Provider Department Center 11/30/2022 CARMEN CHRISTIANSON [facility] Gerardo Pool No family history on file Reason for Visit and Comments: Therapy [849] [facility] CNPNon 11-24-2022 CNPN Telephone (NIQ) ----- MARY LEAL ([id number]) 1970 F Date Time Provider Department 11/24/22 YONI TUTTLE During your visit today, we recorded the following information about you: Barber PatelBryMartinez 11/24/2022 2:50 PM Signed SLEEP PHONE Name of caller: Mary Leal Relationship to patient : Self In-state or [id number] patient: In-State Was permission obtained from patient? Yes Patient identified by Name and Date of . ( Mary Leal, 1970). Yes Reason for Call : Patient stated she spoke to her insurance and they told her that the provider need to call [place] to see if a PA is needed for the PAP Titration. Number to return call [phone] Okay to leave a message ? Yes [...] the AM and 4 mg PM - qmwdrgzkalt-ydyifikqv-rfx anter (TRELEGY ELLIPTA) 100-62.5-25 mcg Inhale 1 [...] Status:Closed by UZIEL SERRANO on 11/24/[address] [facility] Health Telemedici neon 11-23-2022 [facility] Health Telemedicine [id number] Mary Leal 1970 F Date Provider Department Center 11/23/2022 [facility]CARMEN DORSEY [facility] Gerardo [facility] No family history on file Reason for Visit and Comments: Therapy [849] Telehealth Audio/video Visit [871] - WebEx Normal [facility] CNPDianne 11-22-2022 CNPN Telephone (GASTSP) ----- MARY LEAL ([id number]) 1970 F Date Time Provider Department 11/22/22 [facility] During your visit today, we recorded the [...] the AM and 4 mg PM - vsdakrutryl-hswnxlwmf-dsu anter (TRELEGY ELLIPTA) 100-62.5-25 mcg Inhale 1 [...] Encounter Status:Closed by LILLI GOLDBERG on 11/29/22 [facility] HISTORY PHYSICALon HISTORY PHYSICAL HNO ID: [id number] Author: Yodit Back PA-C Service: ? 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 It require patient-provider interaction for [...] in the AM and 4 mg PM nuanucjdcew-yifnqavsb-rkf anter (TRELEGY ELLIPTA) 100-62.5-25 mcg Inhale 1 Puff as instructed once daily. No current facility-administered medications for this visit. COVID VACCINATION STATUS: Fully vaccinated REVIEW OF SYSTEMS: Pain Assessment: General: No weight loss, malaise or fevers. Neuro: No history of TIA's, stroke, SUPERVISOR CD AREA tumor, impaired sensorium, hemiplegia, paraplegia or quadraplegia. [...] requiring medication, no history of angina, CHF, IA, cardiac surgery or stents. Denies rest pain, gangrene or revascularization/amputat ion for PVD. No history of cardiovascular symptoms or problems. 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 : Denies, No LMP recorded. Patient has had a hysterectomy. Endocrine: No history of diabetes. Has not taken steroids within the past 30 (more content not included)... Normal [facility] Behavioral Health Telemedici hardy 11-18-2022 Behavioral Health Telemedicine [id number] Mary Leal 1970 F Date Provider Department Center 11/18/2022 ANNETTE BRYAN [facility] Gerardo Heal No family history on file Reason for Visit and Comments: Telehealth Audio/video Visit [871] - [email or web address] Normal [facility] CNOVon 11-17-2022 CNOV Office Visit (GENSSP ) ----- MARY LEAL ([id number]) 1970 F Date Time Provider Department 11/17/22 2:00 PM WINSTON HANNAH GENSSP During your visit today, we recorded the [...] 7:06 PM Signed [facility] Gastroparesis/Dysmotility Consultation SERVICE DATE: 11/17/2022 SERVICE TIME: 2:16 PM PRIMARY CARE PHYSICIAN: DO Isra Mauricio [facility] [address] [place] [address] My final recommendations will be communicated back [...] was obtained. NAME: Mary Leal CLINIC NO: [id number] DATE OF SERVICE: November 17, 2022 This [...] and some bloating. Duration of symptoms (months): 6030-0815 Weight changes in last 3 months: Steady [...] 94% Re (more content not included)... Normal [facility] Telemedici neon 11-16-2022 Behavioral Health Telemedicine [id number] Mary Leal 1970 F Date Provider Department Center 11/16/2022 3941-KAILAKELLYCARMEN [facility] Gerardo Heal No family history on file Reason for Visit and Comments: Therapy [849] Telehealth Audio/video Visit [871] - WebEx Normal [facility] CNPNon 11-09-2022 CNPN Telephone ([facility]ANNER) ----- MARY LELA ([id number]) 1970 F Date Time Provider Department 11/09/22 YONI TUTTLE [facility] During your visit today, we recorded the following information about you: Mick Doll 11/09/2022 9:49 AM Signed SENT PATIENTS RX TO PREFERRED LOCATION [facility] [phone] Mick Doll [employer] Allergies As of Date: 11/09/2022 Noted Allergy Reaction RISPERIDONE 07/27/2021 5 - Intolerance Comments: Breast discharge Date Reviewed: 10/11/2022 Reviewed by: Isra Masters DO - Fully Assessed Reason for Visit: Orders [031] Cmt: SENT PATIENTS IRON RX Prescriptions as [...] (FLONASE) 50 mcg/actuation nasal spray Use 1 [place] in each nostril once daily. - carBAMazepine [...] LUNGS every 4 hours if needed - gfgrxwvkizy-gpkhectlm-cmj anter (TRELEGY ELLIPTA) 100-62.5-25 mcg Inhale 1 [...] Encounter Status:Closed by MICK DOLL on 11/09/22 [facility] Telephone (GASTSP) ----- MARY LEAL ([id number]) 1970 F Date Time Provider Department 11/09/22 [...] (FLONASE) 50 mcg/actuation nasal spray Use 1 [place] in each nostril once daily. - carBAMazepine [...] LUNGS every 4 hours if needed - ggycptbfjjg-lhuyyrqfq-eff anter (TRELEGY ELLIPTA) 100-62.5-25 mcg Inhale 1 [...] by KARTHIKEYAN MORRISSEY RN on 11/09/[address] [facility] FERRITINon 11-04-2022 FERRITIN (NG/ML) IN SER/PLAS 24.0 ng/mL Normal 11.0-307.0 [facility] Comment on above: Performed By: #### L AB68 ####[facility] (BEAKER)[address] [place] [address] Labon 11-04-2022 Lab [id number] Darrian Leal en 1970 F Date Provider Department [place] 11/04/20222241-[facility] Comprehensiv No family history on file [facility] Refillon 11-03-2022 Refill [id number] Darrian Leal en 1970 F Date Provider Department [place] 11/03/2022 PONCE MCKEON [facility] Gerardo Heal No family history on file Reason for Visit and Comments: Med Refill [[id number]] Normal [facility] CNPNon 11-02-2022 CNPN Telephone (NIQ) ----- MARY LEAL ([id number]) 1970 F Date Time Provider Department 11/02/22 YONI TUTTLE During your visit today, we recorded the following information about you: Barber Marie 11/02/2022 12:35 PM Signed Received from [facility] Report via fax. 8 pages indexed to chart. Yoni Tuttle MD 11/17/2022 3:10 PM Signed Ty - I'll order PAP titration and MCM pt re her OSH PSG results. Yoni Tuttle MD 11/17/2022 3:16 PM Signed 09/22/22: PSG from OSH [facility]: Total (RDI) AHI by 3% desat 27.1, [...] [G47.33] Order(s):PAP TITRATION PSG (CPAP, BIPAP, ASV) [[id number]] Order #: [id number] FUTURE Prescriptions as of 12/01/2022 - Cholecalciferol, [...] the AM and 4 mg PM - gjbwpdrwigd-fbnsudjsi-mtt anter (TRELEGY ELLIPTA) 100-62.5-25 mcg Inhale 1 [...] Encounter Status:Closed by PATRICIA BENTON on 11/17/22 [facility] Hussain 10-27-2022 CNPN Telephone (GASTSP) ----- MARY LEAL ([id number]) 1970 F Date Time Provider Department 10/27/22 [facility] During your visit today, [...] DO - Fully Assessed 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 - carBAMazepine [...] LUNGS every 4 hours if needed - qsulhvuyxfr-fghllmopo-kex anter (TRELEGY ELLIPTA) 100-62.5-25 mcg Inhale 1 [...] Encounter Status:Closed by NELSY PEPE on 11/09/22 [facility] Tele[facility] (GASTSP) ----- MARY LEAL ([id number]) 1970 F Date Time Provider Department 10/24/22 [facility] During your visit today, [...] calling: self Call patient at: at home [phone] (home) [phone] (cell) Closing statement: Symptom Call: Thank you for calling [facility], your call is very important. A nurse will call in approximately 2-4 hours during business hours. If this is an emergency, please contact 911. Nati Benton LPN 10/24/2022 1:12 PM Signed Please [...] Fully Assessed Reason for Visit: Patient Question [2907] Prescriptions as of 10/24/2022 - Dexlansoprazole 60 [...] (FLONASE) 50 mcg/actuation nasal spray Use 1 [place] in each nostril once daily. - carBAMazepine [...] LUNGS every 4 hours if needed - rpdrsyafahm-upwxpwafb-tsr anter (TRELEGY ELLIPTA) 100-62.5-25 mcg Inhale 1 [...] Status:Closed by BAN BENTON on 10/24/22 [facility] AMYL[facility] 10-20-2022 Amylase [Catalytic activity/Vol] 33 U/L Normal 25-115 [facility] Comment on above: Performed By: #### L ACT #### [facility] [address] [address] [address] Mirian Velasco CBC AUTO DIFFon 10-20-2022 BASO # 0.0 103/ul Normal 0.0-0.1 [facility] Comment on above: Performed By: #### P T #### [facility] [address] [address] [address] Mirian Velasco Basophils/100 WBC (Bld) 0.2 % Normal 0.2-2.0 [facility] Comment on above: Performed By: #### P T #### [facility] [address] [address] [address] Mirian Velasco EO # 0.1 103/ul Normal 0.0-0.7 [facility] Comment on above: Performed By: #### P T #### [facility] [address] [place] [address] Dr. Mirian Velasco Eosinophils/100 WBC (Bld) 0.6 % Critically low 0.9-7.0 [facility] Comment on above: Performed By: #### P T #### [facility] [address] [place] [address] Dr. Mirian Velasco Erythrocyte distribution width (RBC) [Ratio] 13.6 % Normal 11.0-15.0 [facility] Comment on above: Performed By: #### P T #### [facility] [address] [place] [address] Dr. Mirian Velasco Hematocrit (Bld) [Volume fraction] 41.0 % Normal 36.0-48.0 [facility] Comment on above: Performed By: #### P T #### [facility] [address] [place] [address] Dr. Mirian Velasco Hemoglobin (Bld) [Mass/Vol] 13.5 g/dL Normal 12.0-16.0 [facility] Comment on above: Performed By: #### P T #### [facility] [address] [place] [address] Dr. Mirian Velasco IG # 0.06 10e3/ul Critically high 0.00-0.03 [facility] Comment on above: Performed By: #### P T #### [facility] [address] [place] [address] Dr. Mirian Velasco IG % 0.4 % Normal 0.0-0.5 [facility] Comment on above: Performed By: #### P T #### [facility] [address] [place] [address] Dr. Mirian Velasco LYMPH # 2.5 103/ul Normal 1.2-3.8 [facility] Comment on above: Performed By: #### P T #### [facility] [address] [place] [address] Dr. Mirian Velasco Lymphocytes/100 WBC (Bld) 17.5 % Critically low 20.5-60.0 [facility] Comment on above: Performed By: #### P T #### [facility] [address] [place] [address] Dr. Mirian Velasco MANUAL DIFF REQ NO Normal [facility] Comment on above: Performed By: #### P T #### [facility] [address] [place] [address] Dr. Mirian Velasco MCH (RBC) [Entitic mass] 28.1 pg Normal 26.7-34.0 [facility] Comment on above: Performed By: #### P T #### [facility] [address] [place] [address] Dr. Mirian Velasco MCHC (RBC) [Mass/Vol] 32.9 g/dL Normal 29.9-35.2 [facility] Comment on above: Performed By: #### P T #### [facility] [address] [place] [address] Dr. Mirian Velasco MCV (RBC) [Entitic vol] 85.2 fL Normal 81.0-99.0 [facility] Comment on above: Performed By: #### P T #### [facility] [address] [place] [address] Dr. Mirian Velasco MONO # 0.7 103/ul Normal 0.3-0.8 [facility] Comment on above: Performed By: #### P T #### [facility] [address] [place] [address] Dr. Mirian Velasco Monocytes/100 WBC (Bld) 4.5 % Normal 1.7-12.0 [facility] Comment on above: Performed By: #### P T #### [facility] [address] [place] [address] Dr. Mirian Velasco NEUT # 11.0 103/ul Critically high 1.4-6.5 [facility] Comment on above: Performed By: #### P T #### [facility] [address] [place] [address] Dr. Mirian Velasco Neutrophils/100 WBC (Bld) 76.8 % Critically high 43.0-75.0 [facility] Comment on above: Performed By: #### P T #### [facility] [address] [address] [address] Mirian Velasco Platelet mean volume (Bld) [Entitic vol] 8.7 fL Critically low 9.5-13.5 [facility] Comment on above: Performed By: #### P T #### [facility] [address] [address] [address] Mirian Velasco PLT 390 103/ul Normal 150-450 [facility] Comment on above: Performed By: #### P T #### [facility] [address] [address] [address] Mirian Velasco RBC 4.81 106/ul Normal 4.20-5.40 [facility] Comment on above: Performed By: #### P T #### [facility] [address] [place] [address] Dr. Mirian Velasco WBC 14.3 103/ul Critically high 4.0-11.0 [facility] Comment on above: Performed By: #### P T #### [facility] [address] [place] [address] ABD/PELV W CONon [...] by: SALMA AMEZQUITA Date: 2022-10-20 12:35 Normal [facility] CULTURE BLOODon 10-20-2022 Microscopic examination of blood, culture Culture Observations: NO GROWTH AT 5 DAYS. Normal [facility] Comment on above: Performed By: #### B LDCX2 ####[facility] [id number] [address]Dr. Mirian Velasco Microscopic examination of blood, culture Culture Observations: NO GROWTH AT 5 DAYS. Normal [facility] Comment on above: Performed By: #### B LDCX1 #### [facility] [address] [address] [address] 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 NO POTENTIAL PATHOGENS SEEN. Normal [facility] Comment on above: Performed By: #### U RCX #### [facility] [address] [address] [address] Mirian Velasco ER URINE PROFILEon 2 Bilirubin Ql (U) Negative Normal NEGATIVE [facility] Comment on above: Performed By: #### P T #### [facility] [address] [address] [address] Mirian Velasco Clarity (U) CLEAR Normal CLEAR [facility] Comment on above: Performed By: #### P T #### [facility] [address] [address] [address] Mirian Velasco Color (U) LT. YELLOW Normal YELLOW [facility] Comment on above: Performed By: #### P T #### [facility] [address] [place] [address] Dr. Mirian KING A micrscopic examina tion will be performed if indicated. Normal [facility] Comment on above: Performed By: #### P T #### [facility] [address] [place] [address] Dr. Mirian Velasco Glucose Ql (U) Negative Normal NEGATIVE [facility] Comment on above: Performed By: #### P T #### [facility] [address] [address] [address] Mirian Velasco Hemoglobin Ql (U) Negative Normal NEGATIVE [facility] Comment on above: Performed By: #### P T #### [facility] [address] [place] [address] Dr. Mirian Velasco Ketones Ql (U) Negative Normal NEGATIVE [facility] Comment on above: Performed By: #### P T #### [facility] [address] [place] [address] Dr. Mirian Velasco LEUKOCYTES SMALL Abnormal NEGATIVE [facility] Comment on above: Performed By: #### P T #### [facility] [address] [place] [address] Dr. Mirian Velasco Nitrite Ql (U) Negative Normal NEGATIVE [facility] Comment on above: Performed By: #### P T #### [facility] [address] [place] [address] Dr. Mirian Velasco pH (U) 7.0 [pH] Normal 5-9 [facility] Comment on above: Performed By: #### P T #### [facility] [address] [place] [address] Dr. Mirian Velasco SPEC GRAVITY 1.015 Normal 1.005-<=1. 025 [facility] Comment on above: Performed By: #### P T #### [facility] [address] [place] [address] Dr. Mirian Velasco UA PROTEIN Negative Normal NEGATIVE/ TRACE [facility] Comment on above: Performed By: #### P T #### [facility] [address] [place] [address] Dr. Mirian Velasco UR MICRO IND INDICATED Normal [facility] Comment on above: Performed By: #### P T #### [facility] [address] [place] [address] Dr. Mirian Velasco Urobilinogen Qn (U) 0.2 {Lyubov'U}/dL Normal 0.2 - 1. 0 [facility] Comment on above: Performed By: #### P T #### [facility] [address] [place] [address] Dr. Mirian Velasco LACTATE/LACTIC ACIDon 2021 Lactate [Moles/Vol] 1.3 mmol/L Normal 0.4-1.9 [facility] Comment on above: Performed By: #### L ACT #### [facility] [address] [place] [address] Dr. Mirian Velasco LIPASEon 10-20-2022 Lipase [Catalytic activity/Vol] 49.0 U/L Critically low 73.0-393.0 [facility] Comment on above: Performed By: #### P T #### [facility] [address] [place] [address] Dr. Mirian Velasco PROF 14(COMP METB)on 022 Albumin [Mass/Vol] 3.2 g/dL Critically low 3.4-5.0 [facility] Comment on above: Performed By: #### P T #### [facility] [address] [place] [address] Dr. Mirian Velasco Albumin/Globulin [Mass ratio] 0.9 {ratio} Normal [facility] Comment on above: Performed By: #### P T #### [facility] [address] [place] [address] Dr. Mirian Velasco ALP [Catalytic activity/Vol] 129 U/L Critically high 46-116 [facility] Comment on above: Performed By: #### P T #### [facility] [address] [place] [address] Dr. Mirian Velasco ALT [Catalytic activity/Vol] 25 U/L Normal 14-59 [facility] Comment on above: Performed By: #### P T #### [facility] [address] [place] [address] Dr. Mirian Velasco Anion gap [Moles/Vol] 10.7 mmol/L Normal [facility] Comment on above: Performed By: #### P T #### [facility] [address] [place] [address] Dr. Mirian Velasco AST [Catalytic activity/Vol] 20 U/L Normal 15-37 [facility] Comment on above: Performed By: #### P T #### [facility] [address] [place] [address] Dr. Mirian Velasco Bilirubin [Mass/Vol] 0.5 mg/dL Normal 0.2-1.0 [facility] Comment on above: Performed By: #### P T #### [facility] [address] [place] [address] Dr. Mirian Velasco Calcium [Mass/Vol] 9.2 mg/dL Normal 8.5-10.[address] [facility] Comment on above: Performed By: #### P T #### [facility] [address] [place] [address] Dr. Mirian Velasco Chloride [Moles/Vol] 102 mmol/L Normal 98-107 [facility] Comment on above: Performed By: #### P T #### [facility] [address] [place] [address] Dr. Mirian Velasco CO2 [Moles/Vol] 30.0 mmol/L Normal 21.0-32.0 [facility] Comment on above: Performed By: #### P T #### [facility] [address] [place] [address] Dr. Mirian Velasco Creatinine [Mass/Vol] 0.68 mg/dL Normal 0.55-1.02 [facility] Comment on above: Performed By: #### P T #### [facility] [address] [place] [address] Dr. Mirian Velasco EGFR-AF [place] >60 Normal >=60 [facility] Comment on above: Performed By: #### P T #### [facility] [address] [place] [address] Dr. Mirian Velasco EGFR-NON AF [place] >60 Normal >=60 [facility] Comment on above: Performed By: #### P T #### [facility] [address] [place] [address] Dr. Mirian Velasco Globulin (S) [Mass/Vol] 3.7 g/dL Normal [facility] Comment on above: Performed By: #### P T #### [facility] [address] [address] [address] Mirian Velasco Glucose [Mass/Vol] 109 mg/dL Critically high 74-106 [facility] Comment on above: Performed By: #### P T #### [facility] [address] [address] [address] Mirian Velasco Potassium [Moles/Vol] 3.7 mmol/L Normal 3.5-5.1 [facility] Comment on above: Performed By: #### P T #### [facility] [address] [place] [address] Dr. Mirian Velasco Protein [Mass/Vol] 6.9 g/dL Normal 6.4-8.[address] [facility] Comment on above: Performed By: #### P T #### [facility] [address] [place] [address] Dr. Mirian Velasco Sodium [Moles/Vol] 139 mmol/L Normal 136-[address] [facility] Comment on above: Performed By: #### P T #### [facility] [address] [address] [address] Mirian Velasco Urea nitrogen [Mass/Vol] 13.0 mg/dL Normal 7.0-18.0 [facility] Comment on above: Performed By: #### P T #### [facility] [address] [address] [address] Mirian Velasco Urea nitrogen/Creatinine [Mass ratio] 19.1 mg/mg Normal [facility] Comment on above: Performed By: #### P T #### [facility] [address] [place] [address] Dr. Mirian Velasco URINE MICROSCOPIC ONLYon BACTERIA TRACE Abnormal NONE SEEN [facility] Comment on above: Performed By: #### P T #### [facility] [address] [place] [address] Dr. Mirian Velasco Bacteria identified Cx Nom (U) INDICATED Normal [facility] Comment on above: Performed By: #### P T #### [facility] [address] [place] [address] Dr. Mirian Velasco CAST NONE SEEN Normal NONE SEEN [facility] Comment on above: Performed By: #### P T #### [facility] [address] [place] [address] Dr. Mirian Velasco Crystals LM Nom (Urine sed) NONE SEEN Normal NONE SEEN [facility] Comment on above: Performed By: #### P T #### [facility] [address] [place] [address] Dr. Mirian Velasco Epithelial cells LM Ql (Urine sed) MODERATE Abnormal NONE SEEN /RARE [facility] Comment on above: Performed By: #### P T #### [facility] [address] [place] [address] Dr. Mirian Velasco MUCOUS NONE SEEN Normal NONE SEEN [facility] Comment on above: Performed By: #### P T #### [facility] [address] [place] [address] Dr. Mirian Velasco RBC NONE SEEN Abnormal 0-2 [facility] Comment on above: Performed By: #### P T #### [facility] [address] [place] [address] Dr. Mirian Velasco WBC 2-5 Abnormal NONE SEEN [facility] Comment on above: Performed By: #### P T #### [facility] [address] [place] [address] Dr. Mirian Velasco YEAST PRESENT Abnormal NONE SEEN [facility] Comment on above: Result Comment: RARE BUDDING YEAST Performed By: #### P T #### [facility] [address] [place] [address] Dr. Mirian Nixon 10-17-2022 MARIAN Telephone ([place]ANNER) ----- MARY LEAL ([id number]) 1970 F Date Time Provider Department 10/17/22 YONI TUTTLE During your visit today, we recorded the following information about you: Mick Doll 10/17/2022 9:19 AM Signed Faxed order, office notes, demographics, and sleep study to: DME name: [facility] DME fax: [phone] DME ph: ALSO SENT A REQUEST FOR PTS PSG FROM [facility] IN [place] Allergies As of Date: 10/17/2022 Noted Allergy Reaction RISPERIDONE 07/27/2021 5 - Intolerance Comments: Breast discharge Date Reviewed: 10/11/2022 Reviewed by: Isra Masters DO - Fully Assessed Reason for Visit: PAP Rx Faxed [[id number]] Cmt: DME: [facility] Prescriptions as of 10/17/2022 - [...] (FLONASE) 50 mcg/actuation nasal spray Use 1 [place] in each nostril once daily. - carBAMazepine [...] LUNGS every 4 hours if needed - omytaxfbpor-ysthxgfkb-phx anter (TRELEGY ELLIPTA) 100-62.5-25 mcg Inhale 1 [...] Status:Closed by MICK DOLL on 10/17/[address] [facility] POINT OF CARE GLUCOSEon 12-1 Glucose [Mass/Vol] 131 mg/dL Critically high 74-106 [facility] Comment on above: Performed By: #### P OCGLUC ####[facility] [address] [place], [place] [address]WoReno Velasco Glucose [Mass/Vol] 113 mg/dL Critically high 74-106 [facility] Comment on above: Performed By: #### P OCGLUC ####[facility] [address] [place], [place] [address]LwReno Mercedesnatalie Velasco XR FOOT RT 2Von 10-17-2022 XR FOOT RT 2V EXAM: XR FOOT RT 2V HISTORY: Pain COMPARISON: 07/27/2022 TECHNIQUE: 2 minutes and 44 seconds of fluoroscopy. 33 images. FINDINGS: Interval posterior calcaneal osteotomy transfixed with 2 screws. Anterior calcaneal osteotomy with wedged spacer. Medial cuneiform osteotomy with wedged spacer. IMPRESSION: Interval triple arthrodesis Electronically authenticated by: NICKI DACOSTA Date: 2022-10-17 18:04 Normal [facility] SARS-CoV-2 (COVID-19) RNA JOSÉ MIGUEL+probe Ql (Unsp spec) Not detected Normal NOT DETECTED [facility] Comment on above: Result Comment: This test is not yet approved or cleared by the [place] FDA. When there are no FDA-approved or cleared tests available, and other criteria are met, FDA can make tests available under an emergency access mechanism called an Emergency Use Authorization (EUA). The EUA for this test is supported by the Senior C Developer of Health and Human Service's (HHS's) declaration [...] consistent with SARS-CoV-2. Performed By: #### C VDTBH #### [facility] [address] [place], [place] [address] Dr. Mirian Velasco Diagnostic Mammogram, Unilat eral Left w/Russel (3D)on 09-28-2022 Diagnostic Mammogram, Unilateral Left w/Russle (3D) CLINICAL HISTORY: Diagnostic Mammogram COMPARISON: Screening [...] VERY IMPORTANT TO YOUR HEALTH. THE CURRENT [place] [employer] OF [employer] AND NATIONAL COMPREHENSIVE CANCER NETWORK GUIDELINES RECOMMENDS ANNUAL MAMMOGRAPHY BEGINNING AT AGE 42 THIS FACILITY USES A REMINDER SYSTEM TO ENSURE ALL PATIENTS RECEIVE REMINDER NOTIFICATIONS AT THE APPROPRIATE TIME BASED ON THE RECOMMENDATIONS OF THIS EXAM. Board Certified Radiologist. Accredited by the ACR and FDA. Report reported and signed by Dawna Lizarraga on 09/28/2022 1307 Normal [facility] CBC AUTO DIFFon 09-26-2022 BASO # 0.1 103/ul Normal 0.0-0.1 [facility] Comment on above: Performed By: #### L ACT #### [facility] [address] [place] [address] [address] Mirian Velasco Basophils/100 WBC (Bld) 0.8 % Normal 0.2-2.0 [facility] Comment on above: Performed By: #### L ACT #### [facility] [address] [place] [address] [address] Mirian Velasco EO # 0.1 103/ul Normal 0.0-0.7 [facility] Comment on above: Performed By: #### L ACT #### [facility] [address] [place] [address] [address] Mirian Velasco Eosinophils/100 WBC (Bld) 1.5 % Normal 0.9-7.0 [facility] Comment on above: Performed By: #### L ACT #### [facility] [address] [place] [address] [address] Mirian Velasco Erythrocyte distribution width (RBC) [Ratio] 13.4 % Normal 11.0-15.0 [facility] Comment on above: Performed By: #### L ACT #### [facility] [address] [place] [address] [address] Mirian Velasco Hematocrit (Bld) [Volume fraction] 41.3 % Normal 36.0-48.0 [facility] Comment on above: Performed By: #### L ACT #### [facility] [address] [place] [address] [address] Mirian Velasco Hemoglobin (Bld) [Mass/Vol] 13.4 g/dL Normal 12.0-16.0 [facility] Comment on above: Performed By: #### L ACT #### [facility] [address] [place] [address] [address] Mirian Velasco IG # 0.04 10e3/ul Critically high 0.00-0.03 [facility] Comment on above: Performed By: #### L ACT #### [facility] [address] [place] [address] [address] Mirian Velasco IG % 0.5 % Normal 0.0-0.5 [facility] Comment on above: Performed By: #### L ACT #### [facility] [address] [place] [address] [address] Mirian Velasco LYMPH # 2.5 103/ul Normal 1.2-3.8 [facility] Comment on above: Performed By: #### L ACT #### [facility] [address] [place] [address] Dr. Mirian Velasco Lymphocytes/100 WBC (Bld) 27.7 % Normal 20.5-60.0 [facility] Comment on above: Performed By: #### L ACT #### [facility] [address] [place] [address] Dr. Mirian Velasco MANUAL DIFF REQ NO Normal [facility] Comment on above: Performed By: #### L ACT #### [facility] [address] [place] [address] Dr. Mirian Velasco MCH (RBC) [Entitic mass] 27.6 pg Normal 26.7-34.0 [facility] Comment on above: Performed By: #### L ACT #### [facility] [address] [place] [address] [address] Mirian Velasco MCHC (RBC) [Mass/Vol] 32.4 g/dL Normal 29.9-35.2 [facility] Comment on above: Performed By: #### L ACT #### [facility] [address] [place] [address] [address] Mirian Velasco MCV (RBC) [Entitic vol] 85.0 fL Normal 81.0-99.0 [facility] Comment on above: Performed By: #### L ACT #### [facility] [address] [place] [address] [address] Mirian Velasco MONO # 0.6 103/ul Normal 0.3-0.8 [facility] Comment on above: Performed By: #### L ACT #### [facility] [address] [place] [address] [address] Mirian Velasco Monocytes/100 WBC (Bld) 6.9 % Normal 1.7-12.0 [facility] Comment on above: Performed By: #### L ACT #### [facility] [address] [place] [address] [address] Mirian Velasco NEUT # 5.6 103/ul Normal 1.4-6.5 [facility] Comment on above: Performed By: #### L ACT #### [facility] [address] [place] [address] [address] Mirian Velasco Neutrophils/100 WBC (Bld) 62.6 % Normal 43.0-75.0 [facility] Comment on above: Performed By: #### L ACT #### [facility] [address] [place] [address] [address] Mirian Velasco Platelet mean volume (Bld) [Entitic vol] 8.6 fL Critically low 9.5-13.5 [facility] Comment on above: Performed By: #### L ACT #### [facility] [address] [place] [address] [address] Mirian Velasco PLT 372 103/ul Normal 150-450 [facility] Comment on above: Performed By: #### L ACT #### [facility] [address] [place] [address] Dr. Mirian Velasco RBC 4.86 106/ul Normal 4.20-5.40 [facility] Comment on above: Performed By: #### L ACT #### [facility] [address] [place] [address] Dr. Mirian Velasco WBC 8.9 103/ul Normal 4.0-11.0 [facility] Comment on above: Performed By: #### L ACT #### [facility] [address] [place] [address] Dr. Mirian Velasco PROF CHEM 8 (BAS METB)on Anion gap [Moles/Vol] 8.0 mmol/L Normal [facility] Comment on above: Performed By: #### P T #### [facility] [address] [place] [address] Dr. Mirian Velasco Calcium [Mass/Vol] 9.0 mg/dL Normal 8.5-10.[address] [facility] Comment on above: Performed By: #### P T #### [facility] [address] [place] [address] Dr. Mirian Velasco Chloride [Moles/Vol] 106 mmol/L Normal 98-107 [facility] Comment on above: Performed By: #### P T #### [facility] [address] [place] [address] Dr. Mirian Velasco CO2 [Moles/Vol] 30.3 mmol/L Normal 21.0-32.0 [facility] Comment on above: Performed By: #### P T #### [facility] [address] [place] [address] Dr. Mirian Velasco Creatinine [Mass/Vol] 0.71 mg/dL Normal 0.55-1.02 [facility] Comment on above: Performed By: #### P T #### [facility] [address] [place] [address] Dr. Mirian Velasco EGFR-AF [place] >60 Normal >=60 [facility] Comment on above: Performed By: #### P T #### [facility] [address] [place] [address] Dr. Mirian Velasco EGFR-NON AF [place] >60 Normal >=60 [facility] Comment on above: Performed By: #### P T #### [facility] [address] [place] [address] [address] Mirian Velasco Glucose [Mass/Vol] 81 mg/dL Normal 74-[address] [facility] Comment on above: Performed By: #### P T #### [facility] [address] [place] [address] [address] Mirian Velasco Potassium [Moles/Vol] 4.3 mmol/L Normal 3.5-5.1 [facility] Comment on above: Performed By: #### P T #### [facility] [address] [place] [address] [address] Mirian Velasco Sodium [Moles/Vol] 140 mmol/L Normal 136-145 [facility] Comment on above: Performed By: #### P T #### [facility] [address] [place] [address] [address] Mirian Velasco Urea nitrogen [Mass/Vol] 16.0 mg/dL Normal 7.0-18.0 [facility] Comment on above: Performed By: #### P T #### [facility] [address] [place] [address] [address] Mirian Velasco Urea nitrogen/Creatinine [Mass ratio] 22.5 mg/mg Normal [facility] Comment on above: Performed By: #### P T #### [facility] [address] [place] [address] [address] Mirian Velasco CHUYITA Antinuclear Antibodieson 09-22-2022 Antinuclear Abs, IFA Negative Normal . [facility] Comment on above: Order Comment: Reaso n for Exam Generalized pain Result Comment: Nega tive <1:80 Borderline 1:80 Positive >1:80 ICAP nomenclature: AC-0 For more information about Hep-2 cell patterns use ANApatterns.org, the official website for the International Consensus on Antinuclear Antibody (CHUYITA) Patterns (ICAP). Performed at: [address] [id number] [employer] Operator: Erick Neville PhD, Phone: [phone] PERFORMED BY: [place] [address] PATHOLOGIST CHANGE MANAGEMENT LEVAR CASE M.D. Performed By: #### T 4T, ESR, URIC, CRP, TSH3 #### [address] #### RA, CHUYITA #### [facility] , C reactive protein [Mass/vol ume] in Serum or PlasmaOrdered By: Annette Harris on 09-22-2022 CRP [Mass/Vol] 0.6 mg/dL 0.0-1.0 [facility] C-Reactive Proteinon 022 C-Reactive Protein 0.6 mg/dL Normal 0.0-1.0 mg/dL [facility] Other C-Reactive Protein 0.6 mg/dL Normal 0.0-1.0 [facility] Comment on above: Order Comment: Reaso n for Exam Generalized pain Performed By: #### T 4T, ESR, URIC, CRP, TSH3 #### [address] #### RA, CHUYITA #### [facility] , Erythrocyte Sedimentation Ra lian 09-22-2022 ESR (Bld) [Velocity] 4 mm/h Normal 0-29 [facility] [employer] Other Comment on above: Order Comment: Reaso n for Exam Generalized pain Result Comment: PERF ORMED BY: [place] [address] PATHOLOGIST CHANGE MANAGEMENT LEVAR CASE M.D. Performed By: #### T 4T, ESR, URIC, CRP, TSH3 #### [facility] [address] [place] [address] [place] #### RA, CHUYITA #### [facility] , Erythrocyte sedimentation ra te by Photometric methodOrdered By: Annette Harris on 09-22-2022 ESR Photometric method (Bld) [Velocity] 4 mm/hr 0-29 [facility] Rheumatoid Factoron 09-22-20 Rheumatoid Factor <10.0 Normal <14.0 [facility] Comment on above: Order Comment: Reaso n for Exam Generalized pain Result Comment: Perf ormed at: [facility] [id number] [place], [place] [id number] [employer] Operator: Erick Neville PhD, Phone: [phone] Performed By: #### T 4T, ESR, URIC, CRP, TSH3 #### [facility] [address] #### RA, CHUYITA #### [facility] , Serum nuclear antibody titer Ordered By: Annette Harris on 09-22-2022 Nuclear Ab (S) [Titer] Negative . [facility] Comment on above: Negative <1:80 Borde rline 1:80 Positive >1:80ICAP nomenclature: AC-0For more information about Hep-2 cell patterns useANApatterns.org, the official website for theInternational Consensus on Antinuclear Antibody (CHUYITA)Patterns (ICAP).Performed at: [facility] [address] [id number] Director: Erick Neville PhD, Phone: [phone] Serum or plasma rheumatoid f actor measurement (units/volume)Ordered By: Annette Harris on 09-22-2022 Rheumatoid factor Qn [IU]/mL <14.0 [facility] Comment on above: Performed at: [facility] [address] [id number] Director: Erick Neville PhD, Phone: [phone] Serum or plasma thyroxine (T 4) measurement (mass/volume)Ordered By: Annette Harris on 09-22-2022 T4 [Mass/Vol] 9.82 ug/dL 5.39-11.82 [facility] Serum or plasma uric acid me asurement (mass/volume)Ordered By: Annette Harris on 09-22-2022 Urate [Mass/Vol] 4.2 mg/dL 2.6-7.[address] [facility] TSH DL <= 0.005 mIU/L QnOrde red By: Annette Harris on 09-22-2022 TSH Qn 1.98 m[IU]/L 0.45-5.33 [facility] Thyroid Stimulating Hormoneo n 09-22-2022 TSH Qn 1.12151060148 m[IU]/L Normal 0.45-5 .33 u[iU]/mL [facility] Other TSH Qn 1.98 m[IU]/L Normal 0.45-5.33 [facility] Comment on above: Order Comment: Reaso n for Exam Generalized pain Result Comment: PERF ORMED BY: [place] [address] PATHOLOGIST CHANGE MANAGEMENT LEVAR CASE M.D. Performed By: #### T 4T, ESR, URIC, CRP, TSH3 #### [facility] [address] [place] [address] #### RA, CHUYITA #### [facility] , Thyroxine (T4) Totalon 09-22 Thyroxine (T4) Total 9.82 ug/dL Normal 5.39-11 .82 ug/dL [facility] Other T4 [Mass/Vol] 9.82 ug/dL Normal 5.39-11.82 [facility] Comment on above: Order Comment: Reaso n for Exam Generalized pain Performed By: #### T 4T, ESR, URIC, CRP, TSH3 #### [facility] [address] [place] [address] [place] #### RA, CHUYITA #### [facility] , Uric Acidon 09-22-2022 Urate [Mass/Vol] 4.4677749 mg/dL Normal 2.6-7.2 mg/dL [facility] Other Urate [Mass/Vol] 4.2 mg/dL Normal 2.6-7.[address] [facility] Comment on above: Order Comment: Reaso n for Exam Generalized pain Performed By: #### T 4T, ESR, URIC, CRP, TSH3 #### [facility] [address] [place] [address] [place] #### RA, CHUYITA #### [facility] , XR knee BI 2Von 09-22-2022 [place]R [place] 2[place] [address] XRay Report Signed Patient: Mary Leal MR#: [id number] : 1970 Acct:[id number] Age/Sex: 52 / F ADM Date: 09/22/22 Loc: [facility] Room: Type: [facility] Attending Dr: Annette Harris MD Copies to: [...] Joshua Garcia M.D.09/22/2022 2:17 PM Dictation Location: [place] [address] Transcribed By: [facility] 09/22/22 141 Dictated By: Joshua Garcia II, MD 09/22/22 141 Signed By: 09/22/22 141 [facility] XR knee BI 2V [facility] [employer] Other XR knee BI 2V [facility] [employer] Other XR knee BI 2V [address] [place] [address] [employer] Other XR knee BI 2V [address] [employer] Other XR knee BI 2V XRay Report [place] [facility] Other XR knee BI 2V Signed [employer] Other XR knee BI 2V Patient: Darrian Leal MR#: [id number] [employer] Other XR knee BI 2V 863 [employer] Other XR knee BI 2V : 1970 Acct:[id number] [employer] Other XR knee BI 2V Age/Sex: 52 / F ADM Date: 09/22/22 [employer] Other XR knee BI 2V Loc: [facility] Room: Type : [facility] [employer] Other XR knee BI 2V Attending Dr: Annette Harris MD [employer] Other XR knee BI 2V Copies to: Annette Harris MD [employer] Other XR knee BI 2V Ordering Provider: Carey Harris MD [employer] Other XR knee BI 2V Date of Service: 09/22/22 [employer] Other XR knee BI 2V XR/XR knee BI 2V: Knee pain [employer] Other XR knee BI 2V XR knee BI 2V 2021 9:23 AM [employer] Other XR knee BI 2V SIGNS AND SYMPTOMS: Bilateral knee pain right greater than left [employer] Other XR knee BI 2V PROTOCOL: Frontal an d lateral radiographs of the bilateral knees [employer] Other XR knee BI 2V COMPARISON: None [employer] Other XR knee BI 2V FINDINGS: [employer] Other XR knee BI 2V There is evidence of prior ACL repair in the left knee with mild narrowing of the weightbearing [employer] Other XR knee BI 2V joint spaces on the left. The joint spaces are otherwise preserved. There is no fracture or [employer] Other XR knee BI 2V dislocation. No join t effusion or soft tissue swelling. [employer] Other XR knee BI 2V X R/XR knee BI 2V [employer] Other XR knee BI 2V IMPRESSION: [employer] Other XR knee BI 2V Status post ACL repa ir on the left. [employer] Other XR knee BI 2V Mild degenerative ch anges are noted in the weightbearing joint spaces of the left. [employer] Other XR knee BI 2V No acute bony injury. [employer] Other XR knee BI 2V Impression dictated by: Joshua Garcia M.D.09/22/2022 2:17 PM [employer] Other XR knee BI 2V Dictation Location: [place] [address] [employer] Other XR knee BI 2V Transcribed By: PWS 09/22/22 [facility] [employer] Other XR knee BI 2V Dictated By: Joshua Garcia II, MD 09/22/22 [facility] [employer] Other XR knee BI 2V Signed By: [employer] Other XR knee BI 2V 09/22/22 [facility] [employer] Other XR shoulder BI min 2Von 09-06 XR shoulder BI min 2V [facility] [employer] [address] [place] [address] XRay Report Signed Patient: Mary Leal MR#: [id number] : 1970 Acct:[id number] Age/Sex: 52 / F ADM Date: 09/22/22 Loc: [facility] Room: Type: [facility] Attending Dr: Annette Harris MD Copies to: [...] Joshua Garcia M.D.09/22/2022 2:20 PM Dictation Location: [place] [address] Transcribed By: [facility] 09/22/22 142 Dictated By: Joshua Garcia II, MD 09/22/22 141 Signed By: 09/22/22 142 [facility] XR shoulder BI min 2V XR/XR shoulder BI min 2V: Shoulder pain [employer] Other XR shoulder BI min 2V XR shoulder BI min 2V 09/22/2022 9:23 AM [employer] Other XR shoulder BI min 2V SIGNS AND SYMPTOMS : Bilateral shoulder pain with limited range of motion [employer] Other XR shoulder BI min 2V PROTOCOL: Frontal, Grashey, scapular Y, and axillary views of the bilateral shoulders [employer] Other XR shoulder BI min 2V COMPARISON: 02/26/2018 [employer] Other XR shoulder BI min 2V There has been bon y resorption of the lateral margin of the clavicle on the right suggesting [employer] Other XR shoulder BI min 2V osteomyelitis is w hich may be degenerative or traumatic. Mild hypertrophy of the AC joint is noted. [employer] Other XR shoulder BI min 2V The glenohumeral j oint is preserved on the right. There is subcortical sclerosis greater tuberosity [employer] Other XR shoulder BI min 2V of the right sugge sting underlying rotator cuff abnormalities. This is new when compared to the [employer] Other XR shoulder BI min 2V prior exam. The visualized right hemithorax is grossly intact. [employer] Other XR shoulder BI min 2V There is mild hype rtrophy of the left acromioclavicular joint. There is mild subcortical sclerosis [employer] Other XR shoulder BI min 2V of the greater tub erosity in the left suggesting underlying rotator cuff abnormalities. The [employer] Other XR shoulder BI min 2V glenohumeral joint is preserved. There is no fracture or dislocation. Visualized left hemithorax is [employer] Other XR shoulder BI min 2V grossly intact. [employer] Other XR shoulder BI min 2V There is partial visualization of intervertebral disc arthroplasty is noted within the lower [employer] Other XR shoulder BI min 2V cervical spine. Rudimentary ribs are noted at C7, right greater than left [employer] Other XR shoulder BI min 2V XR/XR shoulder BI min 2V [employer] Other XR shoulder BI min 2V Degenerative velasco es are noted in the bilateral shoulders with findings suspicious for bilateral [employer] Other XR shoulder BI min 2V rotator cuff abnormalities as above. 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 [employer] Other XR shoulder BI min 2V Rudimentary ribs a re noted at C7, right greater than left [employer] Other XR shoulder BI min 2V Impression dictate d by: Joshua Garcia M.D.09/22/2022 2:20 PM [employer] Other XR shoulder BI min 2V Transcribed By: KT Thorpe 09/22/22 [facility] [employer] Other XR shoulder BI min 2V Dictated By: Joshua Garcia II, MD 09/22/22 [facility] [employer] Other XR shoulder BI min 2V 09/22/22 [facility] [employer] Other SCREENING MAMMOGRAM W/RUSSEL, BILATERAL*on 09-14-2022 SCREENING [...] IS VERY IMPORTANT TO YOUR HEALTH. CURRENT [place] [employer] AND N[employer] COMPREHENSIVE CANCER NETWORK GUIDELINES RECOMMENDS ANNUAL MAMMOGRAPHY BEGINNING AT AGE 40. THIS FACILITY USUALLY USES A REMINDER SYSTEM TO ENSURE ALL POSITIONS RECEIVED REMINDER NOTIFICATIONS AT THE TIME BASED ON THE RECOMMENDATIONS OF THIS EXAM. Report reported and signed by Zaida Diaz on 09/16/2022 1334 Normal [facility] Repair Department Supervisor Tobacco Screening.on 022 Adult depression screening assessment No -[facility] [address] DO Work Phone: Tobacco use status [facility] b) No [facility] DO Work Phone: COVID Quick Testingon 2021 Result Negative [employer] Other AMYLASEon 04-17-2022 Amylase [Catalytic activity/Vol] 38 U/L Normal 25-115 [facility] Comment on above: Performed By: #### P T #### [facility] [address] [place] [address] Dr. Mirian Velasco CBC AUTO DIFFon 04-17-2022 BASO # 0.1 103/ul Normal 0.0-0.1 [facility] Comment on above: Performed By: #### L ACT #### [facility] [address] [place] [address] Dr. Mirian Velasco Basophils/100 WBC (Bld) 1.0 % Normal 0.2-2.0 [facility] Comment on above: Performed By: #### L ACT #### [facility] [address] [place] [address] Dr. Mirian Velasco EO # 0.2 103/ul Normal 0.0-0.7 [facility] Comment on above: Performed By: #### L ACT #### [facility] [address] [place] [address] Dr. Mirian Velasco Eosinophils/100 WBC (Bld) 3.3 % Normal 0.9-7.0 The [facility] Comment on above: Performed By: #### L ACT #### [facility] [address] [place] [address] Dr. Mirian Velasco Erythrocyte distribution width (RBC) [Ratio] 12.0 % Normal 11.0-15.0 [facility] Comment on above: Performed By: #### L ACT #### [facility] [address] [place] [address] Dr. Mirian Velasco Hematocrit (Bld) [Volume fraction] 37.3 % Normal 36.0-48.0 [facility] Comment on above: Performed By: #### L ACT #### [facility] [address] [place] [address] Dr. Mirian Velasco Hemoglobin (Bld) [Mass/Vol] 12.1 g/dL Normal 12.0-16.0 [facility] Comment on above: Performed By: #### L ACT #### [facility] [address] [place] [address] Dr. Mirian Velasco IG # 0.03 10e3/ul Normal 0.00-0.03 [facility] Comment on above: Performed By: #### L ACT #### [facility] [address] [place] [address] Dr. Mirian Velasco IG % 0.4 % Normal 0.0-0.5 [facility] Comment on above: Performed By: #### L ACT #### [facility] [address] [place] [address] Dr. Mirian Velasco LYMPH # 1.8 103/ul Normal 1.2-3.8 [facility] Comment on above: Performed By: #### L ACT #### [facility] [address] [place] [address] Dr. Mirian Velasco Lymphocytes/100 WBC (Bld) 25.2 % Normal 20.5-60.0 [facility] Comment on above: Performed By: #### L ACT #### [facility] [address] [place] [address] Dr. Mirian Velasco MANUAL DIFF REQ NO Normal [facility] Comment on above: Performed By: #### L ACT #### [facility] [address] [address] [address] Mirian Velasco MCH (RBC) [Entitic mass] 29.0 pg Normal 26.7-34.0 [facility] Comment on above: Performed By: #### L ACT #### [facility] [address] [place] [address] Dr. Mirian Velasco MCHC (RBC) [Mass/Vol] 32.4 g/dL Normal 29.9-35.2 [facility] Comment on above: Performed By: #### L ACT #### [facility] [address] [place] [address] Dr. Mirian Velasco MCV (RBC) [Entitic vol] 89.4 fL Normal 81.0-99.0 [facility] Comment on above: Performed By: #### L ACT #### [facility] [address] [place] [address] Dr. Mirian Velasco MONO # 0.4 103/ul Normal 0.3-0.8 [facility] Comment on above: Performed By: #### L ACT #### [facility] [address] [place] [address] Dr. Mirian Velasco Monocytes/100 WBC (Bld) 5.8 % Normal 1.7-12.0 [facility] Comment on above: Performed By: #### L ACT #### [facility] [address] [place] [address] Dr. Mirian Velasco NEUT # 4.6 103/ul Normal 1.4-6.5 [facility] Comment on above: Performed By: #### L ACT #### [facility] [address] [place] [address] Dr. Mirian Velasco Neutrophils/100 WBC (Bld) 64.3 % Normal 43.0-75.0 [facility] Comment on above: Performed By: #### L ACT #### [facility] [address] [place] [address] Dr. Mirian Velasco Platelet mean volume (Bld) [Entitic vol] 8.6 fL Critically low 9.5-13.5 [facility] Comment on above: Performed By: #### L ACT #### [facility] [address] [place], [place] [address] Dr. Mirian Velasco PLT 597 103/ul Critically high 150-450 [facility] Comment on above: Performed By: #### L ACT #### [facility] [address] [place], [place] [address] Dr. Mirian Velasco RBC 4.17 106/ul Critically low 4.20-5.40 [facility] Comment on above: Performed By: #### L ACT #### [facility] [address] [place], [place] [address] Dr. Mirian Velasco WBC 7.2 103/ul Normal 4.0-11.0 [facility] Comment on above: Performed By: #### L ACT #### [facility] [address] [place], [place] [address] ABD/PELVIS WO CONon [...] by: LORRI TRIPLETT Date: 2022-04-17 11:19 Normal [facility] ER URINE PROFILEon 2 Bilirubin Ql (U) Negative Normal NEGATIVE [facility] Comment on above: Performed By: #### P T #### [facility] [address] [place] [address] Dr. Mirian Velasco Clarity (U) CLEAR Normal CLEAR [facility] Comment on above: Performed By: #### P T #### [facility] [address] [place] [address] Dr. Mirian Velasco Color (U) YELLOW Normal YELLOW [facility] Comment on above: Performed By: #### P T #### [facility] [address] [place] [address] Dr. Mirian Velasco ERUAHD A micrscopic examina tion will be performed if indicated. Normal [facility] Comment on above: Performed By: #### P T #### [facility] [address] [place] [address] Dr. Mirian Velasco Glucose Ql (U) Negative Normal NEGATIVE [facility] Comment on above: Performed By: #### P T #### [facility] [address] [address] [address] Mirian Velasco Hemoglobin Ql (U) Negative Normal NEGATIVE [facility] Comment on above: Performed By: #### P T #### [facility] [address] [place] [address] Dr. Mirian Velasco Ketones Ql (U) Negative Normal NEGATIVE [facility] Comment on above: Performed By: #### P T #### [facility] [address] [place] [address] Dr. Mirian Velasco LEUKOCYTES Negative Normal NEGATIVE [facility] Comment on above: Performed By: #### P T #### [facility] [address] [place] [address] Dr. Mirian Velasco Nitrite Ql (U) Negative Normal NEGATIVE [facility] Comment on above: Performed By: #### P T #### [facility] [address] [place] [address] Dr. Mirian Velasco pH (U) 5.5 [pH] Normal 5-9 [facility] Comment on above: Performed By: #### P T #### [facility] [address] [place] [address] Dr. Mirian Velasco SPEC GRAVITY >=1.030 Abnormal 1.005-<=1. 025 [facility] Comment on above: Performed By: #### P T #### [facility] [address] [place] [address] Dr. Mirian Velasco UA PROTEIN Negative Normal NEGATIVE/ TRACE [facility] Comment on above: Performed By: #### P T #### [facility] [address] [place] [address] Dr. Mirian Velasco UR MICRO IND NOT INDICATED Normal [facility] Comment on above: Performed By: #### P T #### [facility] [address] [place] [address] Dr. Mirian Velasco Urobilinogen Qn (U) 0.2 {Lyubov'U}/dL Normal 0.2 - 1. 0 [facility] Comment on above: Performed By: #### P T #### [facility] [address] [place] [address] Dr. Mirian Velasco LIPASEon 04-17-2022 Lipase [Catalytic activity/Vol] 117.0 U/L Normal 73.0-393.0 [facility] Comment on above: Performed By: #### P T #### [facility] [address] [place] [address] Dr. Mirian Velasco PROF 14(COMP METB)on 022 Albumin [Mass/Vol] 3.5 g/dL Normal 3.4-5.[address] [facility] Comment on above: Performed By: #### P T #### [facility] [address] [place] [address] Dr. Mirian Velasco Albumin/Globulin [Mass ratio] 0.9 {ratio} Normal [facility] Comment on above: Performed By: #### P T #### [facility] [address] [place] [address] Dr. Mirian Velasco ALP [Catalytic activity/Vol] 237 U/L Critically high 46-116 [facility] Comment on above: Performed By: #### P T #### [facility] [address] [place] [address] Dr. Mirian Velasco ALT [Catalytic activity/Vol] 53 U/L Normal 14-59 [facility] Comment on above: Performed By: #### P T #### [facility] [address] [place] [address] Dr. Mirian Velasco Anion gap [Moles/Vol] 11.0 mmol/L Normal [facility] Comment on above: Performed By: #### P T #### [facility] [address] [place] [address] Dr. Mirian Velasco AST [Catalytic activity/Vol] 45 U/L Critically high 15-37 [facility] Comment on above: Performed By: #### P T #### [facility] [address] [place] [address] Dr. Mirian Velasco Bilirubin [Mass/Vol] 0.2 mg/dL Normal 0.2-1.0 [facility] Comment on above: Performed By: #### P T #### [facility] [address] [place] [address] Dr. Mirian Velasco Calcium [Mass/Vol] 9.3 mg/dL Normal 8.5-10.[address] [facility] Comment on above: Performed By: #### P T #### [facility] [address] [place] [address] Dr. Mirian Velasco Chloride [Moles/Vol] 105 mmol/L Normal 98-107 [facility] Comment on above: Performed By: #### P T #### [facility] [address] [address] [address] Mirian Velasco CO2 [Moles/Vol] 29.5 mmol/L Normal 21.0-32.0 [facility] Comment on above: Performed By: #### P T #### [facility] [address] [place] [address] Dr. Mirian Velasco Creatinine [Mass/Vol] 0.69 mg/dL Normal 0.55-1.02 [facility] Comment on above: Performed By: #### P T #### [facility] [address] [place] [address] Dr. Mirian Velasco EGFR-AF [place] >110 Normal >=60 [facility] Comment on above: Performed By: #### P T #### [facility] [address] [place] [address] Dr. Mirian Velasco EGFR-NON AF [place] >90 Normal >=60 [facility] Comment on above: Performed By: #### P T #### [facility] [address] [place] [address] Dr. Mirian Velasco Globulin (S) [Mass/Vol] 4.0 g/dL Normal [facility] Comment on above: Performed By: #### P T #### [facility] [address] [place] [address] Dr. Mirian Velasco Glucose [Mass/Vol] 107 mg/dL Critically high 74-106 [facility] Comment on above: Performed By: #### P T #### [facility] [address] [place] [address] Dr. Mirian Velasco Potassium [Moles/Vol] 4.5 mmol/L Normal 3.5-5.1 [facility] Comment on above: Performed By: #### P T #### [facility] [address] [place] [address] Dr. Mirian Velasco Protein [Mass/Vol] 7.5 g/dL Normal 6.4-8.2 [facility] Comment on above: Performed By: #### P T #### [facility] [address] [place] [address] Dr. Mirian Velasco Sodium [Moles/Vol] 141 mmol/L Normal 136-[address] [facility] Comment on above: Performed By: #### P T #### [facility] [address] [address] [address] Mirian Velasco Urea nitrogen [Mass/Vol] 11.0 mg/dL Normal 7.0-18.0 [facility] Comment on above: Performed By: #### P T #### [facility] [address] [address] [address] Mirian Velasco Urea nitrogen/Creatinine [Mass ratio] 15.9 mg/mg Normal [facility] Comment on above: Performed By: #### P T #### [facility] [address] [address] [address] Mirian Velasco XR CHEST 1 Von 04-17-2022 XR CHEST 1 V EXAM: Chest x-ray HISTORY: Pain. COMPARISON: 02/20/2022 TECHNIQUE: AP portable upright view of the chest. FINDINGS: Heart and Vascularity are unremarkable. Lungs are free of focal infiltrates. No effusions are noted. Impression: No acute heart or lung disease identified. Electronically authenticated by: NICKI BUTT Date: 2022-04-17 11:03 Normal [facility] Basic metabolic 2000 panelon 04-05-2022 Anion gap [Moles/Vol] 13 mmol/L Normal 9-18 [facility] Comment on above: Order Comment: Specamena terry Type: BLOOD SPECIMEN Ordering Facility: [facility] Address: [address] [place] [address] Performed By: #### 5 8410-2 #### [facility] CLIA [id number] [address] [place] [address] [place] Calcium [Mass/Vol] 9.0 mg/dL Normal 8.5-10.2 [facility] Comment on above: Order Comment: Leanne terry Type: BLOOD SPECIMEN Ordering Facility: [facility] Address: [address] [address] Performed By: #### 5 8410-2 #### [facility] CLIA [id number] [address] [place] [address] [place] Chloride [Moles/Vol] 104 mmol/L Normal 97-105 [facility] Comment on above: Order Comment: Speci men Type: BLOOD SPECIMEN Ordering Facility: [facility] Address: [address] [place] [address] Performed By: #### 5 8410-2 #### [facility] CLIA [id number] [place] [address] [place] CO2 [Moles/Vol] 25 mmol/L Normal 22-30 [facility] Comment on above: Order Comment: Speci men Type: BLOOD SPECIMEN Ordering Facility: [facility] Address: [address] [place] [address] Performed By: #### 5 8410-2 #### [facility] CLIA [id number] [address] [place] [address] [place] Creatinine [Mass/Vol] 0.65 mg/dL Normal 0.58-0.96 [facility] Comment on above: Order Comment: Speci men Type: BLOOD SPECIMEN Ordering Facility: [facility] Address: [address] [place] [address] Performed By: #### 5 8410-2 #### [facility] CLIA [id number] [address] [place] [address] [place] ESTIMATED GLOMERULAR FILTRATION RATE 108 mL/min/1.73m??? Normal >=60 [facility] Comment on above: Order Comment: Speci men Type: BLOOD SPECIMEN Ordering Facility: [facility] Address: [address] [place] [address] Result Comment: Mary mated Glomerular Filtration Rate [...] GFR. Performed By: #### 5 8410-2 #### [facility] CLIA [id number] [place] [address] [place] Glucose [Mass/Vol] 109 mg/dL High 74-99 [facility] Comment on above: Order Comment: Leanne terry Type: BLOOD SPECIMEN Ordering Facility: [facility] Address: [address] [place] [address] Result Comment: The [place] [employer] (ADA) provides guidance for cutoff [...] Standards of Medical Care in Diabetes 2016, [place] [employer]. Diabetes Care. 2016.39(Suppl 1). Performed By: #### 5 8410-2 #### [facility] CLIA [id number] [address] [place] [address] [place] Potassium [Moles/Vol] 3.9 mmol/L Normal 3.7-5.1 [facility] Comment on above: Order Comment: Leanne terry Type: BLOOD SPECIMEN Ordering Facility: [facility] Address: [address] [place] [address] Performed By: #### 5 8410-2 #### [facility] CLIA [id number] [address] [place] [address] [place] Sodium [Moles/Vol] 142 mmol/L Normal 136-144 [facility] Comment on above: Order Comment: Leanne terry Type: BLOOD SPECIMEN Ordering Facility: [facility] Address: [address] [address] Performed By: #### 5 8410-2 #### [facility] CLIA [id number] [address] [place] [address] [place] Urea nitrogen [Mass/Vol] 7 mg/dL Normal 7-21 [facility] Comment on above: Order Comment: Leanne terry Type: BLOOD SPECIMEN Ordering Facility: [facility] Address: [address] [place] [address] Performed By: #### 5 8410-2 #### [facility] CLIA [id number] [address] [place] [address] CBC W Auto Differential pane l (Bld)on 04-05-2022 Basophils (Bld) [#/Vol] 0.05 10*3/uL Normal <0.11 [facility] Comment on above: Order Comment: Speci men Type: BLOOD SPECIMENOrdering Facility: [facility] Address: [address] [place] [address] Performed By: #### B MP #### [address] [phone] Basophils/100 WBC (Bld) 0.7 % Normal [facility] Comment on above: Order Comment: Speci men Type: BLOOD SPECIMENOrdering Facility: [facility] Address: [address] [place] [address] Performed By: #### B MP #### [address] [place] [phone] Differential cell count method Nom (Bld) Auto Normal [facility] Comment on above: Order Comment: Speci men Type: BLOOD SPECIMENOrdering Facility: [facility] Address: [address] [place] [address] Performed By: #### B MP #### [address] [phone] Eosinophils (Bld) [#/Vol] 0.55 10*3/uL High <0.46 [facility] Comment on above: Order Comment: Speci men Type: BLOOD SPECIMENOrdering Facility: [facility] Address: [address] [place] [address] Performed By: #### B MP #### [address] [phone] Eosinophils/100 WBC (Bld) 8.2 % Normal [facility] Comment on above: Order Comment: Speci men Type: BLOOD SPECIMENOrdering Facility: [facility] Address: [address] [place] [address] Performed By: #### B MP #### [address] [place] [phone] Erythrocyte distribution width (RBC) [Ratio] 12.8 % Normal 11.5-15.0 [facility] Comment on above: Order Comment: Speci men Type: BLOOD SPECIMENOrdering Facility: [facility] Address: [address] [place] [address] Performed By: #### B MP #### [address] [address] Hematocrit (Bld) [Volume fraction] 31.1 % Low 36.0-46.0 [facility] Comment on above: Order Comment: Speci men Type: BLOOD SPECIMENOrdering Facility: [facility] Address: [address] [place] [address] Performed By: #### B MP #### [address] [address] Hemoglobin (Bld) [Mass/Vol] 10.5 g/dL Low 11.5-15.5 [facility] Comment on above: Order Comment: Speci men Type: BLOOD SPECIMENOrdering Facility: [facility] Address: [address] [place] [address] Performed By: #### B MP #### [address] [place] [phone] IMMATURE GRAN % 0.4 % Normal [facility] Comment on above: Order Comment: Speci men Type: BLOOD SPECIMENOrdering Facility: [facility] Address: [address] [place] [address] Performed By: #### B MP #### [address] [place] [phone] IMMATURE GRAN ABS 0.03 k/uL Normal <0.10 [facility] Comment on above: Order Comment: Speci men Type: BLOOD SPECIMENOrdering Facility: [facility] Address: [address] [place] [address] Performed By: #### B MP #### [address] [phone] Lymphocytes (Bld) [#/Vol] 1.47 10*3/uL Normal 1.00-4.00 [facility] Comment on above: Order Comment: Speci men Type: BLOOD SPECIMENOrdering Facility: [facility] Address: [address] [place] [address] Performed By: #### B MP #### [address] [phone] Lymphocytes/100 WBC (Bld) 22.0 % Normal [facility] Comment on above: Order Comment: Speci men Type: BLOOD SPECIMENOrdering Facility: [facility] Address: [address] [place] [address] Performed By: #### B MP #### [address] [phone] MCH (RBC) [Entitic mass] 29.9 pg Normal 26.0-34.0 [facility] Comment on above: Order Comment: Speci men Type: BLOOD SPECIMENOrdering Facility: [facility] Address: [address] [place] [address] Performed By: #### B MP #### [phone] MCHC (RBC) [Mass/Vol] 33.8 g/dL Normal 30.5-36.0 [facility] Comment on above: Order Comment: Speci men Type: BLOOD SPECIMENOrdering Facility: [facility] Address: [address] [place] [address] Performed By: #### B MP #### [phone] MCV (RBC) [Entitic vol] 88.6 fL Normal 80.0-100.0 [facility] Comment on above: Order Comment: Speci men Type: BLOOD SPECIMENOrdering Facility: [facility] Address: [address] [place] [address] Performed By: #### B MP #### [address] [phone] Monocytes (Bld) [#/Vol] 0.50 10*3/uL Normal <0.87 [facility] Comment on above: Order Comment: Speci men Type: BLOOD SPECIMENOrdering Facility: [facility] Address: [address] [place] [address] Performed By: #### B MP #### [place] [address] Monocytes/100 WBC (Bld) 7.5 % Normal [facility] Comment on above: Order Comment: Speci men Type: BLOOD SPECIMENOrdering Facility: [facility] Address: [address] [place] [address] Performed By: #### B MP #### [address] [phone] Neutrophils (Bld) [#/Vol] 4.08 10*3/uL Normal 1.45-7.50 [facility] Comment on above: Order Comment: Speci men Type: BLOOD SPECIMENOrdering Facility: [facility] Address: [address] [place] [address] Performed By: #### B MP #### [address] [phone] Neutrophils/100 WBC (Bld) 61.2 % Normal [facility] Comment on above: Order Comment: Speci men Type: BLOOD SPECIMENOrdering Facility: [facility] Address: [address] [place] [address] Performed By: #### B MP #### [phone] Nucleated RBC (Bld) [#/Vol] 10*3/uL Normal <0.01 [facility] Comment on above: Order Comment: Speci men Type: BLOOD SPECIMENOrdering Facility: [facility] Address: [address] [place] [address] Performed By: #### B MP #### [address] [phone] Nucleated RBC/100 WBC (Bld) [Ratio] 0.0 /100 WBC Normal [facility] Comment on above: Order Comment: Speci men Type: BLOOD SPECIMENOrdering Facility: [facility] Address: [address] [place] [address] Performed By: #### B MP #### [address] [phone] Platelet mean volume (Bld) [Entitic vol] 8.9 fL Low 9.0-12.7 [facility] Comment on above: Order Comment: Speci men Type: BLOOD SPECIMENOrdering Facility: [facility] Address: [address] [place] [address] Performed By: #### B MP #### [address] [phone] Platelets (Bld) [#/Vol] 455 10*3/uL High 150-400 [facility] Comment on above: Order Comment: Speci men Type: BLOOD SPECIMENOrdering Facility: [facility] Address: [address] [place] [address] Performed By: #### B MP #### [address] [phone] RBC (Bld) [#/Vol] 3.51 10*6/uL Low 3.90-5.20 [facility] Comment on above: Order Comment: Speci men Type: BLOOD SPECIMENOrdering Facility: [facility] Address: [address] [place] [address] Performed By: #### B MP #### [address] [phone] WBC (Bld) [#/Vol] 6.68 10*3/uL Normal 3.70-11.00 [facility] Comment on above: Order Comment: Speci men Type: BLOOD SPECIMENOrdering Facility: [facility] Address: [address] [place] [address] Performed By: #### B MP #### [place] [address] CNDSon 04-05-2022 CNDS HNO ID: [id number] Author: Jessi Sheets APRN.[facility] Service: Colorectal Author Type: Nurse Practitioner Type: [...] of the summary. CONSULTING TEAMS DURING HOSPITALIZATION: [facility] Treatment Team: Attending Provider: Mary Obrien MD [...] only. Pain controlled with TAPs and a STAVE BOLT EQUALIZER. Remained nauseated. POD4 re-advanced to full liquids [...] by mo (more content not included)... Normal [facility] Magnesium SerPl-mCncon 04-05 Magnesium [Mass/Vol] 2.0 mg/dL Normal 1.7-2.3 [facility] Comment on above: Order Comment: Speci men Type: BLOOD SPECIMEN Ordering Facility: [facility] Address: [address] [place] [address] Performed By: #### 5 8410-2 #### [facility] [place] [id number] [address] [place] [address] [place] NURSING PROGon 04-05-2022 NURSING PROG HNO ID: [id number] Author: Liliana Mayer RN Service: ? 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 This note was completed by: [facility] H[facility] ID: [id number] Author: Liliana Mayer RN Service: ? Author [...] This note was completed by: Liliana Mayer [facility] NURSING PROG HNO ID: [id number] Author: Eagle Gu RN Service: ? Author Type: Registered Nurse Type: Nursing Progress Note Filed: 04/04/2022 10:58 PM Note Text: Nursing Progress Note Patient Name: Mary Leal Patient Location: / Daily Note:04/04/22 2140 Pt is alert and oriented x3. Pt mabulating independently. Surgical sites intact. Pt refusing IVF, pt states she drinks enough water. This note was completed by: Eagle Gu [facility] NUTRITIONon 04-05-2022 NUTRITION HNO ID: [id number] Author: Merced Morales DTR Service: Nutrition Therapy Author Type: Senior Office Assistant Type: Nutrition Filed: 04/05/2022 10:42 AM Note Text: NUTRITION THERAPY JAIL OFFICER NOTE SERVICE DATE: 04/05/2022 SERVICE TIME: 9:45 [...] April 05, 2022 TIME: 9:54 AM Normal [facility] Phosphate SerPl-mCncon 04-05 Phosphate [Mass/Vol] 4.6 mg/dL Normal 2.7-4.8 [facility] Comment on above: Order Comment: Speci men Type: BLOOD SPECIMEN Ordering Facility: [facility] Address: [address] [place] [address] Performed By: #### 5 8410-2 #### [facility] CLIA [id number] [address] [place] [address] [place] Basic metabolic 2000 panelon 04-04-2022 Anion gap [Moles/Vol] 10 mmol/L Normal 9-18 [facility] Comment on above: Order Comment: Speci men Type: BLOOD SPECIMENOrdering Facility: [facility] Address: [address] [facility] [address] Performed By: #### 2 4321-2, , 2776-11 ####[facility] [id number] [place] [address] [place] Calcium [Mass/Vol] 8.9 mg/dL Normal 8.5-10.2 [facility] Comment on above: Order Comment: Speci men Type: BLOOD SPECIMENOrdering Facility: [facility] Address: [address] [place], [place] [address] Performed By: #### 2 4321-2, , 2776-11 ####[facility] [id number] [place] [address] [place] Chloride [Moles/Vol] 104 mmol/L Normal 97-105 [facility] Comment on above: Order Comment: Speci men Type: BLOOD SPECIMENOrdering Facility: [facility] Address: [address] Performed By: #### 2 1-2, , 2776-11 ####[facility] [id number] [place] [address] [place] CO2 [Moles/Vol] 26 mmol/L Normal 22-30 [facility] Comment on above: Order Comment: Speci men Type: BLOOD SPECIMENOrdering Facility: [facility] Address: [address] Performed By: #### 2 4321-2, , 2776-11 ####[facility] [id number] [place] [id number] [place] Creatinine [Mass/Vol] 0.56 mg/dL Low 0.58-0.96 [facility] Comment on above: Order Comment: Speci men Type: BLOOD SPECIMENOrdering Facility: [facility] Address: [address] Performed By: #### 2 4321-2, , 2776-11 ####[facility] [id number] [place] [address] [facility] ESTIMATED GLOMERULAR FILTRATION RATE 112 mL/min/1.73m??? Normal >=60 [facility] Comment on above: Order Comment: Leanne terry Type: BLOOD SPECIMENOrdering Facility: [facility] Address: [address] [place] [address] Result Comment: Mary mated Glomerular Filtration Rate [...] Performed By: #### 2 4321-2, , 2776-11 ####[facility] [id number] [place] [address] [place] [facility] Glucose [Mass/Vol] 112 mg/dL High 74-99 [facility] Comment on above: Order Comment: Leanne terry Type: BLOOD SPECIMENOrdering Facility: [facility] Address: [address] [place] [address] Result Comment: The [place] Diabetes Association (ADA) provides guidance for cutoff [...] Standards of Medical Care in Diabetes 2016, [place] [employer]. Diabetes Care. 2016.39(Suppl 1). Performed By: #### 2 4321-2, , 2776- ####[facility] [id number] [place] [id number] [place] Potassium [Moles/Vol] 3.9 mmol/L Normal 3.7-5.1 [facility] Comment on above: Order Comment: Speci men Type: BLOOD SPECIMENOrdering Facility: [facility] Address: [address] [place] [address] Performed By: #### 2 4321-2, 48928-4, 2776- ####[facility] [id number] [place] [address] [place] Sodium [Moles/Vol] 140 mmol/L Normal 136-144 [facility] Comment on above: Order Comment: Speci men Type: BLOOD SPECIMENOrdering Facility: [facility] Address: [address] [place] [address] Performed By: #### 2 4321-2, , 2776-11 ####[facility]ORYCLIA [id number] [place] [address] [place] Urea nitrogen [Mass/Vol] 3 mg/dL Low 7-21 [facility] Comment on above: Order Comment: Speci men Type: BLOOD SPECIMENOrdering Facility: [facility] Address: [address] [place] [address] Performed By: #### 2 4321-2, , 2776-11 ####[facility]ORATORYCLIA [id number] [place] [address] [place] CBC W Auto Differential pane l (Bld)on 04-04-2022 Basophils (Bld) [#/Vol] 0.03 10*3/uL Normal <0.11 [facility] Comment on above: Order Comment: Speci men Type: BLOOD SPECIMEN Ordering Facility: [facility] Address: [address] [place] [address] Performed By: #### 5 7021-8 #### [facility] CLIA [id number] [place] [address] [place] Basophils/100 WBC (Bld) 0.5 % Normal [facility] Comment on above: Order Comment: Speci men Type: BLOOD SPECIMEN Ordering Facility: [facility] Address: [address] [place] [address] Performed By: #### 5 7021-8 #### [facility] CLIA [id number] [address] [place] [address] [place] Differential cell count method Nom (Bld) Auto Normal [facility] Comment on above: Order Comment: Speci men Type: BLOOD SPECIMEN Ordering Facility: [facility] Address: [address] [place] [address] Performed By: #### 5 7021-8 #### [facility] CLIA [id number] [address] [place] [address] [place] Eosinophils (Bld) [#/Vol] 0.48 10*3/uL High <0.46 [facility] Comment on above: Order Comment: Speci men Type: BLOOD SPECIMEN Ordering Facility: [facility] Address: [address] [place] [address] Performed By: #### 5 7021-8 #### [facility] CLIA [id number] [address] [place] [address] [place] Eosinophils/100 WBC (Bld) 7.7 % Normal [facility] Comment on above: Order Comment: Speci men Type: BLOOD SPECIMEN Ordering Facility: [facility] Address: [address] [place] [address] Performed By: #### 5 7021-8 #### [facility] CLIA [id number] [address] [place] [address] [place] Erythrocyte distribution width (RBC) [Ratio] 12.7 % Normal 11.5-15.0 [facility] Comment on above: Order Comment: Speci men Type: BLOOD SPECIMEN Ordering Facility: [facility] Address: [address] [place] [address] Performed By: #### 5 7021-8 #### [facility] CLIA [id number] [address] [place] [address] [place] Hematocrit (Bld) [Volume fraction] 31.2 % Low 36.0-46.0 [facility] Comment on above: Order Comment: Speci men Type: BLOOD SPECIMEN Ordering Facility: [facility] Address: [address] [place] [address] Performed By: #### 5 7021-8 #### [facility] CLIA [id number] [address] [place] [address] [place] Hemoglobin (Bld) [Mass/Vol] 10.7 g/dL Low 11.5-15.5 [facility] Comment on above: Order Comment: Speci men Type: BLOOD SPECIMEN Ordering Facility: [facility] Address: [address] [place] [address] Performed By: #### 5 7021-8 #### [facility] CLIA [id number] [address] [place] [address] [place] IMMATURE GRAN % 0.5 % Normal [facility] Comment on above: Order Comment: Speci men Type: BLOOD SPECIMEN Ordering Facility: [facility] Address: [address] [place] [address] Performed By: #### 5 7021-8 #### [facility] CLIA [id number] [address] [place] [address] [place] IMMATURE GRAN ABS 0.03 k/uL Normal <0.10 [facility] Comment on above: Order Comment: Speci men Type: BLOOD SPECIMEN Ordering Facility: [facility] Address: [address] [place] [address] Performed By: #### 5 7021-8 #### [facility] CLIA [id number] [address] [place] [address] [place] Lymphocytes (Bld) [#/Vol] 1.13 10*3/uL Normal 1.00-4.00 [facility] Comment on above: Order Comment: Speci men Type: BLOOD SPECIMEN Ordering Facility: [facility] Address: [address] [place] [address] Performed By: #### 5 7021-8 #### [facility] CLIA [id number] [address] [place] [address] [place] Lymphocytes/100 WBC (Bld) 18.2 % Normal [facility] Comment on above: Order Comment: Speci men Type: BLOOD SPECIMEN Ordering Facility: [facility] Address: [address] [place] [address] Performed By: #### 5 7021-8 #### [facility] CLIA [id number] [address] [place] [address] [place] MCH (RBC) [Entitic mass] 29.9 pg Normal 26.0-34.0 [facility] Comment on above: Order Comment: Speci men Type: BLOOD SPECIMEN Ordering Facility: [facility] Address: [address] [place] [address] Performed By: #### 5 7021-8 #### [facility] CLIA [id number] [address] [place] [address] [place] MCHC (RBC) [Mass/Vol] 34.3 g/dL Normal 30.5-36.0 [facility] Comment on above: Order Comment: Speci men Type: BLOOD SPECIMEN Ordering Facility: [facility] Address: [address] [place] [address] Performed By: #### 5 7021-8 #### [facility] CLIA [id number] [address] [place] [address] [place] MCV (RBC) [Entitic vol] 87.2 fL Normal 80.0-100.0 [facility] Comment on above: Order Comment: Speci men Type: BLOOD SPECIMEN Ordering Facility: [facility] Address: [address] [place] [address] Performed By: #### 5 7021-8 #### [facility] CLIA [id number] [address] [place] [address] [place] Monocytes (Bld) [#/Vol] 0.36 10*3/uL Normal <0.87 [facility] Comment on above: Order Comment: Speci men Type: BLOOD SPECIMEN Ordering Facility: [facility] Address: [address] [place] [address] Performed By: #### 5 7021-8 #### [facility] CLIA [id number] [address] [place] [address] [place] Monocytes/100 WBC (Bld) 5.8 % Normal [facility] Comment on above: Order Comment: Speci men Type: BLOOD SPECIMEN Ordering Facility: [facility] Address: [address] [place] [address] Performed By: #### 5 7021-8 #### [facility] CLIA [id number] [address] [place] [address] [place] Neutrophils (Bld) [#/Vol] 4.18 10*3/uL Normal 1.45-7.50 [facility] Comment on above: Order Comment: Speci men Type: BLOOD SPECIMEN Ordering Facility: [facility] Address: [address] [place] [address] Performed By: #### 5 7021-8 #### [facility] CLIA [id number] [address] [place] [address] [place] Neutrophils/100 WBC (Bld) 67.3 % Normal [facility] Comment on above: Order Comment: Speci men Type: BLOOD SPECIMEN Ordering Facility: [facility] Address: [address] [place] [address] Performed By: #### 5 7021-8 #### [facility] CLIA [id number] [address] [place] [address] [place] Nucleated RBC (Bld) [#/Vol] 10*3/uL Normal <0.01 [facility] Comment on above: Order Comment: Speci men Type: BLOOD SPECIMEN Ordering Facility: [facility] Address: [address] [place] [address] Performed By: #### 5 7021-8 #### [facility] CLIA [id number] [address] [place] [address] [place] Nucleated RBC/100 WBC (Bld) [Ratio] 0.0 /100 WBC Normal [facility] Comment on above: Order Comment: Speci men Type: BLOOD SPECIMEN Ordering Facility: [facility] Address: [address] [place] [address] Performed By: #### 5 7021-8 #### [facility] CLIA [id number] [address] [place] [address] [place] Platelet mean volume (Bld) [Entitic vol] 8.7 fL Low 9.0-12.7 [facility] Comment on above: Order Comment: Speci men Type: BLOOD SPECIMEN Ordering Facility: [facility] Address: [address] [place] [address] Performed By: #### 5 7021-8 #### [facility] CLIA [id number] [address] [place] [address] [place] Platelets (Bld) [#/Vol] 436 10*3/uL High 150-400 [facility] Comment on above: Order Comment: Speci men Type: BLOOD SPECIMEN Ordering Facility: [facility] Address: [address] [place] [address] Performed By: #### 5 7021-8 #### [facility] CLIA [id number] [address] [place] [address] [place] RBC (Bld) [#/Vol] 3.58 10*6/uL Low 3.90-5.20 [facility] Comment on above: Order Comment: Speci men Type: BLOOD SPECIMEN Ordering Facility: [facility] Address: [address] [place] [address] Performed By: #### 5 7021-8 #### [facility] CLIA [id number] [address] [place] [address] [place] WBC (Bld) [#/Vol] 6.21 10*3/uL Normal 3.70-11.00 [facility] Comment on above: Order Comment: Speci men Type: BLOOD SPECIMEN Ordering Facility: [facility] Address: [address] [place] [address] Performed By: #### 5 7021-8 #### [facility] CLIA [id number] [address] [place] [address] [place] Magnesium SerPl-mCncon 04-04 Magnesium [Mass/Vol] 2.1 mg/dL Normal 1.7-2.3 [facility] Comment on above: Order Comment: Speci men Type: BLOOD SPECIMENOrdering Facility: [facility] Address: [facility] [place] [id number] Performed By: #### 2 4321-2, 91744-3, 2777-1 ####[facility] [id number] [address] NURSING PROGon 04-04-2022 NURSING PROG HNO ID: [id number] Author: Juan Crowley RN Service: Nursing Author Type: Registered Nurse Type: Nursing Progress Note Filed: 04/04/2022 7:47 PM Note Text: Nursing Progress Note Patient Name: Mary Leal Patient Location: [address] Daily Note:Patient refusing further IVF. This note was completed by: Juan Crowley [facility] NURSING PROG HNO ID: [id number] Author: Juan Crowley RN Service: Nursing Author Type: Registered Nurse Type: Nursing Progress Note Filed: 04/04/2022 11:11 AM Note Text: Nursing Progress Note Patient Name: Mary Leal Patient Location: [address]-22 Daily Note: Patient up in chair and up ambulating in hallway with steady gait. VSS. RA POx. IVF as ordered. Transverse and Lap sites ELENI with glue. Dressing to old ostomy site CDI. Abdomen soft and tender. Patient states, feeling much better . Diet advanced, yet patient did not take in 25% of tray. Patient informed RN that I am leaving today. Do what you gotta do. I can do all of this at home . Dr Lamas paged and notified, but post call. Will page SR director of health education. Will continue to monitor. Call light in reach. This note was completed by: Juan Langford [facility] Phosphate SerPl-mCncon 04-04 Phosphate [Mass/Vol] 3.2 mg/dL Normal 2.7-4.8 [facility] Comment on above: Order Comment: Speci men Type: BLOOD SPECIMENOrdering Facility: [facility] Address: [address] [place], [place] [address] Performed By: #### 2 4321-2, 46945-5, 2777-1 ####[facility]ORYCLIA [id number] [address] ALLIED HEALTHon 04-03-2022 ALLIED HEALTH HNO ID: [id number] Author: MALAIAK Martinez Service: ? Author Type: Hearing Healthcare Practitioner Type: Allied Health Filed: 04/03/2022 5:35 PM [...] Martinez April 03, 2022 5:35 PM Normal [facility] Basic metabolic 2000 panelon 04-03-2022 Anion gap [Moles/Vol] 10 mmol/L Normal 9-18 [facility] Comment on above: Order Comment: Speci men Type: BLOOD SPECIMENOrdering Facility: [facility] Address: [address] [place] [address] Performed By: #### B MP #### [place] [phone] Calcium [Mass/Vol] 8.4 mg/dL Low 8.5-10.2 [facility] Comment on above: Order Comment: Speci men Type: BLOOD SPECIMENOrdering Facility: [facility] Address: [address] [place] [address] Performed By: #### B MP #### [phone] Chloride [Moles/Vol] 103 mmol/L Normal 97-105 [facility] Comment on above: Order Comment: Speci men Type: BLOOD SPECIMENOrdering Facility: [facility] Address: [address] [place] [address] Performed By: #### B MP #### [place] [phone] CO2 [Moles/Vol] 25 mmol/L Normal 22-30 [facility] Comment on above: Order Comment: Speci men Type: BLOOD SPECIMENOrdering Facility: [facility] Address: [address] [place] [address] Performed By: #### B MP #### [place] [phone] Creatinine [Mass/Vol] 0.60 mg/dL Normal 0.58-0.96 [facility] Comment on above: Order Comment: Speci men Type: BLOOD SPECIMENOrdering Facility: [facility] Address: [address] [place], [place] [address] Performed By: #### B MP #### [phone] ESTIMATED GLOMERULAR FILTRATION RATE 110 mL/min/1.73m??? Normal >=60 [facility] Comment on above: Order Comment: Speci men Type: BLOOD SPECIMENOrdering Facility: [facility] Address: [address] [place], [place] [address] Result Comment: Mary mated Glomerular Filtration Rate [...] GFR. Performed By: #### B MP #### [place] [address] Glucose [Mass/Vol] 106 mg/dL High 74-99 [facility] Comment on above: Order Comment: Leanne terry Type: BLOOD SPECIMENOrdering Facility: [facility] Address: [address] [place] [id number] Result Comment: The [place] [employer] (ADA) provides guidance for cutoff [...] Standards of Medical Care in Diabetes 2016, [place] [employer]. Diabetes Care. 2016.39(Suppl 1). Performed By: #### B MP #### [place] [address] Potassium [Moles/Vol] 3.3 mmol/L Low 3.7-5.1 [facility] Comment on above: Order Comment: Leanne terry Type: BLOOD SPECIMENOrdering Facility: [facility] Address: [address] [place] [address] Performed By: #### B MP #### [place] [phone] Sodium [Moles/Vol] 138 mmol/L Normal 136-144 [facility] Comment on above: Order Comment: Leanne terry Type: BLOOD SPECIMENOrdering Facility: [facility] Address: [address] [place] [address] Performed By: #### B MP #### [place] [phone] Urea nitrogen [Mass/Vol] 4 mg/dL Low 05-26 [facility] Comment on above: Order Comment: Speci men Type: BLOOD SPECIMENOrdering Facility: [facility] Address: [address] [place] [address] Performed By: #### B MP #### [place] [phone] CBC W Auto Differential pane l (Bld)on 04-03-2022 Basophils (Bld) [#/Vol] 0.03 10*3/uL Normal <0.11 [facility] Comment on above: Order Comment: Speci men Type: BLOOD SPECIMENOrdering Facility: [facility] Address: [address] [place] [address] Performed By: #### B MP #### [place] [address] Basophils/100 WBC (Bld) 0.4 % Normal [facility] Comment on above: Order Comment: Speci men Type: BLOOD SPECIMENOrdering Facility: [facility] Address: [address] [place] [address] Performed By: #### B MP #### [place] [address] Differential cell count method Nom (Bld) Auto Normal [facility] Comment on above: Order Comment: Speci men Type: BLOOD SPECIMENOrdering Facility: [facility] Address: [address] [place] [address] Performed By: #### B MP #### [place] [phone] Eosinophils (Bld) [#/Vol] 0.48 10*3/uL High <0.46 [facility] Comment on above: Order Comment: Speci men Type: BLOOD SPECIMENOrdering Facility: [facility] Address: [address] [place] [address] Performed By: #### B MP #### [place] [phone] Eosinophils/100 WBC (Bld) 6.5 % Normal [facility] Comment on above: Order Comment: Speci men Type: BLOOD SPECIMENOrdering Facility: [facility] Address: [address] [place] [address] Performed By: #### B MP #### [place] [phone] Erythrocyte distribution width (RBC) [Ratio] 12.5 % Normal 11.5-15.0 [facility] Comment on above: Order Comment: Speci men Type: BLOOD SPECIMENOrdering Facility: [facility] Address: [address] [place] [address] Performed By: #### B MP #### [place] [phone] Hematocrit (Bld) [Volume fraction] 29.5 % Low 36.0-46.0 [facility] Comment on above: Order Comment: Speci men Type: BLOOD SPECIMENOrdering Facility: [facility] Address: [address] [place] [address] Performed By: #### B MP #### [place] [phone] Hemoglobin (Bld) [Mass/Vol] 10.2 g/dL Low 11.5-15.5 [facility] Comment on above: Order Comment: Speci men Type: BLOOD SPECIMENOrdering Facility: [facility] Address: [address] [place] [address] Performed By: #### B MP #### [address] IMMATURE GRAN % 0.5 % Normal [facility] Comment on above: Order Comment: Speci men Type: BLOOD SPECIMENOrdering Facility: [facility] Address: [address] [place] [address] Performed By: #### B MP #### [place] [id number] IMMATURE GRAN ABS 0.04 k/uL Normal <0.10 [facility] Comment on above: Order Comment: Speci men Type: BLOOD SPECIMENOrdering Facility: [facility] Address: [address] [place] [address] Performed By: #### B MP #### [place] [phone] Lymphocytes (Bld) [#/Vol] 1.11 10*3/uL Normal 1.00-4.00 [facility] Comment on above: Order Comment: Speci men Type: BLOOD SPECIMENOrdering Facility: [facility] Address: [address] [place] [address] Performed By: #### B MP #### [phone] Lymphocytes/100 WBC (Bld) 15.0 % Normal [facility] Comment on above: Order Comment: Speci men Type: BLOOD SPECIMENOrdering Facility: [facility] Address: [address] [place] [address] Performed By: #### B MP #### [place] [phone] MCH (RBC) [Entitic mass] 30.1 pg Normal 26.0-34.0 [facility] Comment on above: Order Comment: Speci men Type: BLOOD SPECIMENOrdering Facility: [facility] Address: [address] [place] [address] Performed By: #### B MP #### [phone] MCHC (RBC) [Mass/Vol] 34.6 g/dL Normal 30.5-36.0 [facility] Comment on above: Order Comment: Speci men Type: BLOOD SPECIMENOrdering Facility: [facility] Address: [address] [place] [address] Performed By: #### B MP #### [place] [phone] MCV (RBC) [Entitic vol] 87.0 fL Normal 80.0-100.0 [facility] Comment on above: Order Comment: Speci men Type: BLOOD SPECIMENOrdering Facility: [facility] Address: [address] [place] [address] Performed By: #### B MP #### [place] [address] Monocytes (Bld) [#/Vol] 0.46 10*3/uL Normal <0.87 [facility] Comment on above: Order Comment: Speci men Type: BLOOD SPECIMENOrdering Facility: [facility] Address: [address] [place] [address] Performed By: #### B MP #### [place] [address] Monocytes/100 WBC (Bld) 6.2 % Normal [facility] Comment on above: Order Comment: Speci men Type: BLOOD SPECIMENOrdering Facility: [facility] Address: [address] [place] [address] Performed By: #### B MP #### [place] [address] Neutrophils (Bld) [#/Vol] 5.27 10*3/uL Normal 1.45-7.50 [facility] Comment on above: Order Comment: Speci men Type: BLOOD SPECIMENOrdering Facility: [facility] Address: [address] [place] [address] Performed By: #### B MP #### [phone] Neutrophils/100 WBC (Bld) 71.4 % Normal [facility] Comment on above: Order Comment: Speci men Type: BLOOD SPECIMENOrdering Facility: [facility] Address: [address] [place] [address] Performed By: #### B MP #### [place] [address] Nucleated RBC (Bld) [#/Vol] 10*3/uL Normal <0.01 [facility] Comment on above: Order Comment: Speci men Type: BLOOD SPECIMENOrdering Facility: [facility] Address: [address] [place] [address] Performed By: #### B MP #### [place] [phone] Nucleated RBC/100 WBC (Bld) [Ratio] 0.0 /100 WBC Normal [facility] Comment on above: Order Comment: Speci men Type: BLOOD SPECIMENOrdering Facility: [facility] Address: [address] [place] [address] Performed By: #### B MP #### [place] [phone] Platelet mean volume (Bld) [Entitic vol] 8.6 fL Low 9.0-12.7 [facility] Comment on above: Order Comment: Speci men Type: BLOOD SPECIMENOrdering Facility: [facility] Address: [address] [place] [address] Performed By: #### B MP #### [place] [phone] Platelets (Bld) [#/Vol] 342 10*3/uL Normal 150-400 [facility] Comment on above: Order Comment: Speci men Type: BLOOD SPECIMENOrdering Facility: [facility] Address: [address] [place] [address] Performed By: #### B MP #### [place] [phone] RBC (Bld) [#/Vol] 3.39 10*6/uL Low 3.90-5.20 [facility] Comment on above: Order Comment: Speci men Type: BLOOD SPECIMENOrdering Facility: [facility] Address: [address] [place] [address] Performed By: #### B MP #### [place] [address] WBC (Bld) [#/Vol] 7.39 10*3/uL Normal 3.70-11.00 [facility] Comment on above: Order Comment: Speci men Type: BLOOD SPECIMENOrdering Facility: [facility] Address: [address] [place] [address] Performed By: #### B #### [facility] [address] [place] [id number] CONSULT PROGon 04-03-2022 CONSULT PROG HNO ID: [id number] Author: Sarwat Huddleston PA-C Service: Pain Management Author Type: Physician Insulation Extruder Operator Type: Consult Progress Note Filed: 04/03/2022 [...] appears comf (more content not included)... Normal [facility] CT ABD/PEL W IVCONon 022 CT [...] Lower thorax: Visualized lung bases are clear. Felt Hooker (topogram) images: No additional findings. IMPRESSION: Postsurgical [...] collection is present in the lower pelvis Locker Room Attendant: [facility] Transcribe Date/Time: Apr 03 2022 9:00P Dictated by : SHELBY ESPINOSA MD This examination was interpreted and the report reviewed and electronically signed by: SHELBY ESPINOSA MD on Apr 03 2022 9:12PM EST [id number] Normal [facility] Magnesium SerPl-mCncon 04-03 Magnesium [Mass/Vol] 1.6 mg/dL Low 1.7-2.3 [facility] Comment on above: Order Comment: Speci men Type: BLOOD SPECIMENOrdering Facility: [facility] Address: [address] [place] [phone] Performed By: #### B #### [place] [id number] NURSING PROGon 04-03-2022 NURSING PROG HNO ID: [id number] Author: Annette Ford RN Service: ? Author Type: Registered Nurse Type: Nursing Progress Note Filed: 04/03/2022 9:39 PM Note Text: Nursing Progress Note Patient Name: Mary Leal Patient Location: Daily Note: 0: Pt declined to have all oral medications. They just go right through me. I cannot take them. . Made RN aware. This note was completed by: Annette Ford [facility] NURSING PROG HNO ID: [id number] Author: Juan Crowley RN Service: Nursing Author Type: Registered Nurse Type: Nursing Progress Note Filed: 04/03/2022 2:51 PM Note Text: Nursing Progress Note Patient Name: Mary Leal Patient Location: Daily Note:Patient unable to tolerate powder form of potassium due to nausea. Patient unable to tolerate IV form, it feels like It's paralyzing my arm . Attempted to dilute boluses and lower rates with no success. SR paged with events [phone]). Awaiting further orders. This note was completed by: Juan Crowley [facility] NURSING PROG HNO ID: [id number] Author: Juan Crowley RN Service: Nursing Author Type: Registered Nurse Type: Nursing Progress Note Filed: 04/03/2022 11:33 AM Note Text: Nursing Progress Note Patient Name: Mary Leal Patient Location: Daily Note: Patient Up independently in room and in hallway. IVF infusing as ordered. B/L Tap Blocks discontinued and removed by PA. Old ostomy dressing changed. Scant amount of drainage on dressing. Fresh ABD with tape applied. Transverse and lap sites [employer] with glue. BS Hypoactive. No flatus per [...] This note was completed by: Juan Crowley [facility] NURSING PROG HNO ID: [id number] Author: Chava Remy RN Service: PICC Team Author Type: Registered Nurse Type: Nursing Progress Note Filed: 04/03/2022 8:37 AM Note Text: PICC/VASCULAR ACCESS PROGRESS NOTE SERVICE DATE: 04/03/2022 SERVICE TIME: 829 Called to floor to start difficult PIV. PIV started in the left for arm # 22 angio. Brisk blood return noted and flushed with 10 ml normal saline. No complications noted. SIGNATURE: Chava Remy RN PATIENT NAME: Mary Leal DATE: April 03, 2022 TIME: 8:37 AM PAGER/CONTACT #: [facility] NURSING PROG HNO ID: [id number] Author: Kev Leone RN Service: ? Author Type: Registered Nurse Type: Nursing Progress Note Filed: 04/03/2022 3:50 AM Note Text: Nursing Progress Note Patient Name: Mary Leal Patient Location: /HE3W-08 Daily Note: 2100: Pt refusing all PO meds at this time, states she's concerned that she's not digesting them properly. Paan currently being controlled with bilateral blocks and PRN IV pain medication. This note was completed by: Kev Leone [facility] Phosphate SerPl-mCncon 04-03 Phosphate [Mass/Vol] 3.3 mg/dL Normal 2.7-4.8 [facility] Comment on above: Order Comment: Speci men Type: BLOOD SPECIMENOrdering Facility: [facility] Address: [address] [place], [place] [address] Performed By: #### B MP #### [place] [address] ALLIED HEALTHon 04-02-2022 ALLIED HEALTH HNO ID: [id number] Author: RT Ban(R) Service: Radiology Author Type: [...] RT Ban(R) April 02, 2022 9:12 AM [facility] CONSULT PROGon 04-02-2022 CONSULT PROG HNO ID: [id number] Author: Sarwat Huddleston PA-C Service: Pain Management Author Type: Physician Insulation Extruder Operator Type: Consult Progress Note Filed: 04/02/2022 [...] 29.3 5 (more content not included)... Normal [facility] NURSING PROGon 04-02-2022 NURSING PROG HNO ID: [id number] Author: Juan Crowley, RN Service: Nursing Author Type: Registered Nurse Type: Nursing Progress Note Filed: 04/02/2022 1:23 PM Note Text: Nursing Progress Note Patient Name: Mary Leal Patient Location: [place] [address]/TY3G-57 Daily Note: Patient AANDOx3. VSS. RA POx. [...] monitor. This note was completed by: Juan Langford [facility] XR ABDOMEN 1V SUPINEon 04-02 XR [...] may be of help for further evaluation. Locker Room Attendant: [facility] Transcribe Date/Time: Apr 02 2022 9:16A Dictated by : JOAQUIN BRYANT MD This examination was interpreted and the report reviewed and electronically signed by: JOAQUIN BRYANT MD on Apr 02 2022 9:19AM EST [id number] Normal [facility] Basic metabolic 2000 panelon 04-01-2022 Anion gap [Moles/Vol] 9 mmol/L Normal 9-18 [facility] Comment on above: Order Comment: Speci men Type: BLOOD SPECIMENOrdering Facility: [facility] Address: [address] [place] [address] Performed By: #### B MP #### [place] [address] Calcium [Mass/Vol] 7.9 mg/dL Low 8.5-10.2 [facility] Comment on above: Order Comment: Speci men Type: BLOOD SPECIMENOrdering Facility: [facility] Address: [address] [place], [place] [address] Performed By: #### B MP #### [place] [address] Chloride [Moles/Vol] 106 mmol/L High 97-105 [facility] Comment on above: Order Comment: Speci men Type: BLOOD SPECIMENOrdering Facility: [facility] Address: [address] [place] [address] Performed By: #### B MP #### [place] [address] CO2 [Moles/Vol] 26 mmol/L Normal 22-30 [facility] Comment on above: Order Comment: Speci men Type: BLOOD SPECIMENOrdering Facility: [facility] Address: [address] [place] [address] Performed By: #### B MP #### [place] [phone] Creatinine [Mass/Vol] 0.68 mg/dL Normal 0.58-0.96 [facility] Comment on above: Order Comment: Speci men Type: BLOOD SPECIMENOrdering Facility: [facility] Address: [address] [place] [address] Performed By: #### B MP #### [place] [phone] ESTIMATED GLOMERULAR FILTRATION RATE 107 mL/min/1.73m??? Normal >=60 [facility] Comment on above: Order Comment: Speci men Type: BLOOD SPECIMENOrdering Facility: [facility] Address: [address] [place] [address] Result Comment: Mary mated Glomerular Filtration Rate [...] GFR. Performed By: #### B MP #### [place] [address] Glucose [Mass/Vol] 99 mg/dL Normal 74-99 [facility] Comment on above: Order Comment: Speci men Type: BLOOD SPECIMENOrdering Facility: [facility] Address: [address] [place] [address] Result Comment: The [place] [employer] (ADA) provides guidance for cutoff [...] Standards of Medical Care in Diabetes 2016, [place] [employer]. Diabetes Care. 2016.39(Suppl 1). Performed By: #### B MP #### [place] [phone] Potassium [Moles/Vol] 3.7 mmol/L Normal 3.7-5.1 [facility] Comment on above: Order Comment: Speci men Type: BLOOD SPECIMENOrdering Facility: [facility] Address: [address] [place] [address] Performed By: #### B MP #### [place] [phone] Sodium [Moles/Vol] 141 mmol/L Normal 136-144 [facility] Comment on above: Order Comment: Speci men Type: BLOOD SPECIMENOrdering Facility: [facility] Address: [address] [place] [address] Performed By: #### B MP #### [phone] Urea nitrogen [Mass/Vol] 4 mg/dL Low 7-21 [facility] Comment on above: Order Comment: Speci men Type: BLOOD SPECIMENOrdering Facility: [facility] Address: [address] [place] [address] Performed By: #### B MP #### [place] [phone] CBC panel Auto (Bld)on 04-01 Erythrocyte distribution width (RBC) [Ratio] 12.4 % Normal 11.5-15.0 [facility] Comment on above: Order Comment: Speci men Type: BLOOD SPECIMEN Ordering Facility: [facility] Address: [address] [place] [address] Performed By: #### 5 8410-2 #### [facility] CLIA [id number] [address] [place] [address] [place] Hematocrit (Bld) [Volume fraction] 29.3 % Low 36.0-46.0 [facility] Comment on above: Order Comment: Speci men Type: BLOOD SPECIMEN Ordering Facility: [facility] Address: [address] [place] [address] Performed By: #### 5 8410-2 #### [facility] CLIA [id number] [address] [place] [address] [place] Hemoglobin (Bld) [Mass/Vol] 9.6 g/dL Low 11.5-15.5 [facility] Comment on above: Order Comment: Speci men Type: BLOOD SPECIMEN [facility]ing Facility: [facility] Address: [address] [place] [address] Performed By: #### 5 8410-2 #### [facility] CLIA [id number] [address] [place] [address] [place] MCH (RBC) [Entitic mass] 29.4 pg Normal 26.0-34.0 [facility] Comment on above: Order Comment: Speci men Type: BLOOD SPECIMEN [facility]ing Facility: [facility] Address: [address] [place] [address] Performed By: #### 5 8410-2 #### [facility] CLIA [id number] [address] [place] [address] [place] MCHC (RBC) [Mass/Vol] 32.8 g/dL Normal 30.5-36.0 [facility] Comment on above: Order Comment: Speci men Type: BLOOD SPECIMEN [facility]ing Facility: [facility] Address: [address] [place] [address] Performed By: #### 5 8410-2 #### [facility] CLIA [id number] [address] [place] [address] [place] MCV (RBC) [Entitic vol] 89.9 fL Normal 80.0-100.0 [facility] Comment on above: Order Comment: Speci men Type: BLOOD SPECIMEN Ordering Facility: [facility] Address: [address] [place] [address] Performed By: #### 5 8410-2 #### [facility] CLIA [id number] [address] [place] [address] [place] Nucleated RBC (Bld) [#/Vol] 10*3/uL Normal <0.01 [facility] Comment on above: Order Comment: Speci men Type: BLOOD SPECIMEN [facility]ing Facility: [facility] Address: [address] [place] [address] Performed By: #### 5 8410-2 #### [facility] CLIA [id number] [address] [place] [address] [place] Platelet mean volume (Bld) [Entitic vol] 8.9 fL Low 9.0-12.7 [facility] Comment on above: Order Comment: Speci men Type: BLOOD SPECIMEN [facility]ing Facility: [facility] Address: [address] [place] [address] Performed By: #### 5 8410-2 #### [facility] CLIA [id number] [address] [place] [address] [place] Platelets (Bld) [#/Vol] 282 10*3/uL Normal 150-400 [facility] Comment on above: Order Comment: Speci men Type: BLOOD SPECIMEN Ordering Facility: [facility] Address: [address] [place] [address] Performed By: #### 5 8410-2 #### [facility] CLIA [id number] [address] [place] [address] [place] RBC (Bld) [#/Vol] 3.26 10*6/uL Low 3.90-5.20 [facility] Comment on above: Order Comment: Speci men Type: BLOOD SPECIMEN Ordering Facility: [facility] Address: [address] Performed By: #### 5 8410-2 #### [facility] CLIA [id number] [address] WBC (Bld) [#/Vol] 7.39 10*3/uL Normal 3.70-11.00 [facility] Comment on above: Order Comment: Speci men Type: BLOOD SPECIMEN Ordering Facility: [facility] Address: [address] Performed By: #### 5 8410-2 #### [facility] CLIA [id number] [address] CONSULT PROGon 04-01-2022 CONSULT PROG HNO ID: [id number] Author: Joslyn Jain APRN.TUB OPERATOR Service: Pain Management Author Type: Nurse Practitioner [...] 0.67 Sod (more content not included)... Normal [facility] Magnesium SerPl-mCncon 04-01 Magnesium [Mass/Vol] 1.7 mg/dL Normal 1.7-2.3 [facility] Comment on above: Order Comment: Speci men Type: BLOOD SPECIMENOrdering Facility: [facility] Address: [address] [place] [address] [place] [address] Performed By: #### B MP #### [facility] [address] [place] [address] NURSING PROGon 04-01-2022 NURSING PROG HNO ID: [id number] Author: Eagle Gu RN Service: ? Author [...] Dilaudid This note was completed by: Eagle Gu [facility] NURSING PROG HNO ID: [id number] Author: Eagle Gu RN Service: ? Author Type: Registered Nurse Type: Nursing Progress Note Filed: 04/01/2022 1:52 AM Note Text: Nursing Progress Note Patient Name: Mary Leal Patient Location: Daily Note:03/31/222030 Pt is alert and oriented x3. Surgical sites intact. Nerve blocks x2 intact. This note was completed by: Eagle Gu Normal [facility] Phosphate SerPl-mCncon 04-01 Phosphate [Mass/Vol] 2.8 mg/dL Normal 2.7-4.8 [facility] Comment on above: Order Comment: Speci men Type: BLOOD SPECIMENOrdering Facility: [facility] Address: [address] [place] [address] Performed By: #### B MP #### [place] [address] Basic metabolic 2000 panelon 03-31-2022 Anion gap [Moles/Vol] 10 mmol/L Normal 9-18 [facility] Comment on above: Order Comment: Speci men Type: BLOOD SPECIMEN Ordering Facility: [facility] Address: [address] [place] [address] Performed By: #### 5 8410-2 #### [facility] CLIA [id number] [address] [place] [address] [place] Calcium [Mass/Vol] 8.4 mg/dL Low 8.5-10.2 [facility] Comment on above: Order Comment: Speci men Type: BLOOD SPECIMEN Ordering Facility: [facility] Address: [address] [place] [address] Performed By: #### 5 8410-2 #### [facility] CLIA [id number] [address] [place] [address] [place] Chloride [Moles/Vol] 107 mmol/L High 97-105 [facility] Comment on above: Order Comment: Speci men Type: BLOOD SPECIMEN Ordering Facility: [facility] Address: [address] [place] [address] Performed By: #### 5 8410-2 #### [facility] CLIA [id number] [address] [place] [address] [place] CO2 [Moles/Vol] 23 mmol/L Normal 22-30 [facility] Comment on above: Order Comment: Speci men Type: BLOOD SPECIMEN Ordering Facility: [facility] Address: [facility] [place] [address] Performed By: #### 5 8410-2 #### [facility] CLIA [id number] [address] [place] [address] [place] Creatinine [Mass/Vol] 0.67 mg/dL Normal 0.58-0.96 [facility] Comment on above: Order Comment: Leanne terry Type: BLOOD SPECIMEN Ordering Facility: [facility] Address: [address] [place] [address] Performed By: #### 5 8410-2 #### [facility] CLIA [id number] [place] [address] [place] ESTIMATED GLOMERULAR FILTRATION RATE 107 mL/min/1.73m??? Normal >=60 [facility] Comment on above: Order Comment: Leanne [facility] Type: BLOOD SPECIMEN Ordering Facility: [facility] Address: [address] [place] [address] Result Comment: Mary mated Glomerular Filtration Rate [...] GFR. Performed By: #### 5 8410-2 #### [facility] CLIA [id number] [place] [address] [place] Glucose [Mass/Vol] 84 mg/dL Normal 74-99 [facility] Comment on above: Order Comment: Leanne terry Type: BLOOD SPECIMEN Ordering Facility: [facility] Address: [address] [place] [address] Result Comment: The [place] [employer] (ADA) provides guidance for cutoff [...] Standards of Medical Care in Diabetes 2016, [place] [employer]. Diabetes Care. 2016.39(Suppl 1). Performed By: #### 5 8410-2 #### [facility] CLIA [id number] [address] [place] [address] [place] Potassium [Moles/Vol] 3.8 mmol/L Normal 3.7-5.1 [facility] Comment on above: Order Comment: Speci men Type: BLOOD SPECIMEN Ordering Facility: [facility] Address: [address] [place] [address] Performed By: #### 5 8410-2 #### [facility] CLIA [id number] [address] [place] [address] [place] Sodium [Moles/Vol] 140 mmol/L Normal 136-144 [facility] Comment on above: Order Comment: Speci men Type: BLOOD SPECIMEN Ordering Facility: [facility] Address: [address] [place] [address] Performed By: #### 5 8410-2 #### [facility] CLIA [id number] [address] [place] [address] [place] Urea nitrogen [Mass/Vol] 11 mg/dL Normal 7-21 [facility] Comment on above: Order Comment: Everettei men Type: BLOOD SPECIMEN Ordering Facility: [facility] Address: [address] [place] [address] Performed By: #### 5 8410-2 #### [facility] CLIA [id number] [address] [place] [address] [place] CBC W Auto Differential pane l (Bld)on 03-31-2022 Basophils (Bld) [#/Vol] 0.03 10*3/uL Normal <0.11 [facility] Comment on above: Order Comment: Speci men Type: BLOOD SPECIMEN Ordering Facility: [facility] Address: [address] [place] [address] Performed By: #### 5 7021-8 #### [facility] CLIA [id number] [address] [place] [address] [place] Basophils/100 WBC (Bld) 0.4 % Normal [facility] Comment on above: Order Comment: Speci men Type: BLOOD SPECIMEN [facility] [facility] Address: [address] [place] [address] Performed By: #### 5 7021-8 #### [facility] CLIA [id number] [address] [place] [address] [place] Differential cell count method Nom (Bld) Auto Normal [facility] Comment on above: Order Comment: Speci men Type: BLOOD SPECIMEN Ordering Facility: [facility] Address: [address] [place] [address] Performed By: #### 5 7021-8 #### [facility] CLIA [id number] [address] [place] [address] [place] Eosinophils (Bld) [#/Vol] 0.38 10*3/uL Normal <0.46 [facility] Comment on above: Order Comment: Speci men Type: BLOOD SPECIMEN Ordering Facility: [facility] Address: [address] [place] [address] Performed By: #### 5 7021-8 #### [facility] CLIA [id number] [address] [place] [address] [place] Eosinophils/100 WBC (Bld) 4.4 % Normal [facility] Comment on above: Order Comment: Speci men Type: BLOOD SPECIMEN Ordering Facility: [facility] Address: [address] [place] [address] Performed By: #### 5 7021-8 #### [facility] CLIA [id number] [address] [place] [address] [place] Erythrocyte distribution width (RBC) [Ratio] 12.6 % Normal 11.5-15.0 [facility] Comment on above: Order Comment: Speci men Type: BLOOD SPECIMEN Ordering Facility: [facility] Address: [address] [place] [address] Performed By: #### 5 7021-8 #### [facility] CLIA [id number] [address] [place] [address] Hematocrit (Bld) [Volume fraction] 30.0 % Low 36.0-46.0 [facility] Comment on above: Order Comment: Speci men Type: BLOOD SPECIMEN Ordering Facility: [facility] Address: [address] [place] [address] Performed By: #### 5 7021-8 #### [facility] CLIA [id number] [address] [place] [address] [place] Hemoglobin (Bld) [Mass/Vol] 9.9 g/dL Low 11.5-15.5 [facility] Comment on above: Order Comment: Speci men Type: BLOOD SPECIMEN Ordering Facility: [facility] Address: [address] [place] [address] Performed By: #### 5 7021-8 #### [facility] [place] [id number] [address] [place] [address] [place] IMMATURE GRAN % 0.4 % Normal [facility] Comment on above: Order Comment: Speci men Type: BLOOD SPECIMEN Ordering Facility: [facility] Address: [address] [place] [address] Performed By: #### 5 7021-8 #### [facility] [place] [id number] [address] [place] [address] IMMATURE GRAN ABS 0.03 k/uL Normal <0.10 [facility] Comment on above: Order Comment: Speci men Type: BLOOD SPECIMEN Ordering Facility: [facility] Address: [address] [place] [address] Performed By: #### 5 7021-8 #### [facility] CLIA [id number] [address] [place] [address] [place] Lymphocytes (Bld) [#/Vol] 1.24 10*3/uL Normal 1.00-4.00 [facility] Comment on above: Order Comment: Speci men Type: BLOOD SPECIMEN Ordering Facility: [facility] Address: [address] [place] [address] Performed By: #### 5 7021-8 #### [facility] CLIA [id number] [address] [place] [address] [place] Lymphocytes/100 WBC (Bld) 14.5 % Normal [facility] Comment on above: Order Comment: Speci men Type: BLOOD SPECIMEN Ordering Facility: [facility] Address: [address] [place] [address] Performed By: #### 5 7021-8 #### [facility] CLIA [id number] [address] [place] [address] [place] MCH (RBC) [Entitic mass] 29.6 pg Normal 26.0-34.0 [facility] Comment on above: Order Comment: Speci men Type: BLOOD SPECIMEN Ordering Facility: [facility] Address: [address] [place] [address] Performed By: #### 5 7021-8 #### [facility] CLIA [id number] [address] [place] [address] [place] MCHC (RBC) [Mass/Vol] 33.0 g/dL Normal 30.5-36.0 [facility] Comment on above: Order Comment: Speci men Type: BLOOD SPECIMEN Ordering Facility: [facility] Address: [address] [place] [address] Performed By: #### 5 7021-8 #### [facility] CLIA [id number] [address] [place] [address] [place] MCV (RBC) [Entitic vol] 89.8 fL Normal 80.0-100.0 [facility] Comment on above: Order Comment: Speci men Type: BLOOD SPECIMEN Ordering Facility: [facility] Address: [address] [place] [address] Performed By: #### 5 7021-8 #### [facility] CLIA [id number] [address] [place] [address] [place] Monocytes (Bld) [#/Vol] 0.48 10*3/uL Normal <0.87 [facility] Comment on above: Order Comment: Speci men Type: BLOOD SPECIMEN Ordering Facility: [facility] Address: [address] [place] [address] Performed By: #### 5 7021-8 #### [facility] CLIA [id number] [address] [place] [address] [place] Monocytes/100 WBC (Bld) 5.6 % Normal [facility] Comment on above: Order Comment: Speci men Type: BLOOD SPECIMEN Ordering Facility: [facility] Address: [address] [place] [address] Performed By: #### 5 7021-8 #### [facility] CLIA [id number] [address] [place] [address] [place] Neutrophils (Bld) [#/Vol] 6.41 10*3/uL Normal 1.45-7.50 [facility] Comment on above: Order Comment: Speci men Type: BLOOD SPECIMEN Ordering Facility: [facility] Address: [address] [place] [address] Performed By: #### 5 7021-8 #### [facility] CLIA [id number] [address] [place] [address] [place] Neutrophils/100 WBC (Bld) 74.7 % Normal [facility] Comment on above: Order Comment: Speci men Type: BLOOD SPECIMEN Ordering Facility: [facility] Address: [address] [place] [address] Performed By: #### 5 7021-8 #### [facility] CLIA [id number] [address] [place] [address] [place] Nucleated RBC (Bld) [#/Vol] 10*3/uL Normal <0.01 [facility] Comment on above: Order Comment: Speci men Type: BLOOD SPECIMEN Ordering Facility: [facility] Address: [address] [place] [address] Performed By: #### 5 7021-8 #### [facility] CLIA [id number] [address] [place] [address] [place] Nucleated RBC/100 WBC (Bld) [Ratio] 0.0 /100 WBC Normal [facility] Comment on above: Order Comment: Speci men Type: BLOOD SPECIMEN Ordering Facility: [facility] Address: [address] [place], [place] [address] Performed By: #### 5 7021-8 #### [facility] CLIA [id number] [address] [place] [address] [place] Platelet mean volume (Bld) [Entitic vol] 9.0 fL Normal 9.0-12.7 [facility] Comment on above: Order Comment: Speci men Type: BLOOD SPECIMEN Ordering Facility: [facility] Address: [address] [place] [address] Performed By: #### 5 7021-8 #### [facility] CLIA [id number] [address] [place] [address] [place] Platelets (Bld) [#/Vol] 246 10*3/uL Normal 150-400 [facility] Comment on above: Order Comment: Speci men Type: BLOOD SPECIMEN Ordering Facility: [facility] Address: [address] [place], [place] [address] Performed By: #### 5 7021-8 #### [facility] CLIA [id number] [address] [place] [address] [place] RBC (Bld) [#/Vol] 3.34 10*6/uL Low 3.90-5.20 [facility] Comment on above: Order Comment: Speci men Type: BLOOD SPECIMEN Ordering Facility: [facility] Address: [address] [place], [place] [address] Performed By: #### 5 7021-8 #### [facility] CLIA [id number] [address] [place] [address] [place] WBC (Bld) [#/Vol] 8.57 10*3/uL Normal 3.70-11.00 [facility] Comment on above: Order Comment: Speci men Type: BLOOD SPECIMEN Ordering Facility: [facility] Address: [address] [place], [place] [address] Performed By: #### 5 7021-8 #### [id number] [address] [place] [address] [place] CONSULT PROGon 03-31-2022 CONSULT PROG HNO ID: [id number] Author: Joslyn Jian APRN.KWESI Service: Pain Management Author Type: Nurse [...] PLAN/Recs: 1. Continue TAPS X 2 to 0///2 each, will likely remove it on Monday [...] AND U (more content not included)... Normal [facility] Magnesium SerPl-mCncon 03-31 Magnesium [Mass/Vol] 1.6 mg/dL Low 1.7-2.3 [facility] Comment on above: Order Comment: Speci men Type: BLOOD SPECIMEN Ordering Facility: [facility] Address: [address] [place] [address] Performed By: #### 5 8410-2 #### [facility] CLIA [id number] [address] [place] [address] [place] NURSING PROGon 03-31-2022 NURSING PROG HNO ID: [id number] Author: Daisy Amaya RN Service: Nursing Author [...] This note was completed by: Daisy Amaya [facility] NURSING PROG HNO ID: [id number] Author: Mariluz Carnes RN Service: Nursing Author Type: Registered Nurse Type: Nursing Progress Note Filed: 03/30/2022 11:47 PM Note Text: Nursing Progress Note Patient Name: Mary Leal Patient Location: / Daily Note: Pt's BP 90/52. Patient asymptomatic. Surgery made aware. Order in for [facility] [place] 500CC's. This note was completed by: Mariluz Carnes [facility] Phosphate SerPl-mCncon 03-31 Phosphate [Mass/Vol] 2.7 mg/dL Normal 2.7-4.8 [facility] Comment on above: Order Comment: Speci men Type: BLOOD SPECIMEN Ordering Facility: [facility] Address: [address] [place] [address] Performed By: #### 5 8410-2 #### [facility] CLIA [id number] [address] [place], [place] [address] [place] Basic metabolic 2000 panelon 03-30-2022 Anion gap [Moles/Vol] 10 mmol/L Normal 9-18 [facility] Comment on above: Order Comment: Speci men Type: BLOOD SPECIMEN Ordering Facility: [facility] Address: [address] [place], [place] [address] Performed By: #### 1 9123-9, 27705-06, 35518-7 #### [facility] CLIA [id number] [address] [place] [address] [place] Calcium [Mass/Vol] 8.5 mg/dL Normal 8.5-10.2 [facility] Comment on above: Order Comment: Speci men Type: BLOOD SPECIMEN Ordering Facility: [facility] Address: [address] [place], [place] [address] Performed By: #### 1 9123-9, 27705-06, 42405-1 #### [facility] CLIA [id number] [address] [place] [address] [place] Chloride [Moles/Vol] 103 mmol/L Normal 97-105 [facility] Comment on above: Order Comment: Speci men Type: BLOOD SPECIMEN Ordering Facility: [facility] Address: [address] [place], [place] [address] Performed By: #### 1 9123-9, 27705-06, 91351-2 #### [facility] CLIA [id number] [address] [place] [address] [place] CO2 [Moles/Vol] 24 mmol/L Normal 22-30 [facility] Comment on above: Order Comment: Speci men Type: BLOOD SPECIMEN Ordering Facility: [facility] Address: [address] [place], [place] [address] Performed By: #### 1 9123-9, 2777, 70853-8 #### [facility] CLIA [id number] [address] [place] [address] [place] Creatinine [Mass/Vol] 0.69 mg/dL Normal 0.58-0.96 [facility] Comment on above: Order Comment: Leanne terry Type: BLOOD SPECIMEN Ordering Facility: [facility] Address: [address] [place] [id number] Performed By: #### 1 9123-9, 2777-1, 65837-4 #### [facility] CLIA [id number] [place] [address] [place] ESTIMATED GLOMERULAR FILTRATION RATE 107 mL/min/1.73m??? Normal >=60 [facility] Comment on above: Order Comment: Leanne terry Type: BLOOD SPECIMEN Ordering Facility: [facility] Address: [address] Result Comment: Mary mated Glomerular Filtration [...] GFR. Performed By: #### 1 9123-9, 2777-1, 85657-5 #### [facility] CLIA [id number] [place] [address] [place] Glucose [Mass/Vol] 117 mg/dL High 74-99 [facility] Comment on above: Order Comment: Leanne terry Type: BLOOD SPECIMEN Ordering Facility: [facility] Address: [address] [id number] Result Comment: The [place] [employer] (ADA) provides guidance for cutoff [...] Standards of Medical Care in Diabetes 2016, [place] [employer]. Diabetes Care. 2016.39(Suppl 1). Performed By: #### 1 9123-9, 2777-1, 75367-5 #### [facility] CLIA [id number] [address] [place] [address] [place] Potassium [Moles/Vol] 3.9 mmol/L Normal 3.7-5.1 [facility] Comment on above: Order Comment: Speci men Type: BLOOD SPECIMEN Ordering Facility: [facility] Address: [address] [address] Performed By: #### 1 9123-9, 2777-1, 19186-8 #### [facility] CLIA [id number] [address] [place] [address] [place] Sodium [Moles/Vol] 137 mmol/L Normal 136-144 [facility] Comment on above: Order Comment: Speci men Type: BLOOD SPECIMEN Ordering Facility: [facility] Address: [address] [place] [address] Performed By: #### 1 9123-9, 2777-1, 26690-7 #### [facility] CLIA [id number] [address] [place] [address] [place] Urea nitrogen [Mass/Vol] 13 mg/dL Normal 7-21 [facility] Comment on above: Order Comment: Speci men Type: BLOOD SPECIMEN Ordering Facility: [facility] Address: [address] [address] Performed By: #### 1 9123-9, 2777-, 40198-5 #### [facility] CLIA [id number] [address] [place] [address] [place] CBC panel Auto (Bld)on 03-30 Erythrocyte distribution width (RBC) [Ratio] 12.8 % Normal 11.5-15.0 [facility] Comment on above: Order Comment: Speci men Type: BLOOD SPECIMEN Ordering Facility: [facility] Address: [address] [place] [address] Performed By: #### 5 8410-2 #### [facility] CLIA [id number] [address] [place] [address] [place] Hematocrit (Bld) [Volume fraction] 35.0 % Low 36.0-46.0 [facility] Comment on above: Order Comment: Speci men Type: BLOOD SPECIMEN Ordering Facility: [facility] Address: [address] [place] [address] Performed By: #### 5 8410-2 #### [facility] CLIA [id number] [address] [place] [address] [place] Hemoglobin (Bld) [Mass/Vol] 11.8 g/dL Normal 11.5-15.5 [facility] Comment on above: Order Comment: Speci men Type: BLOOD SPECIMEN Ordering Facility: [facility] Address: [address] [place] [address] Performed By: #### 5 8410-2 #### [facility] CLIA [id number] [address] [place] [address] STATES [facility] MCH (RBC) [Entitic mass] 30.6 pg Normal 26.0-34.0 [facility] Comment on above: Order Comment: Speci men Type: BLOOD SPECIMEN Ordering Facility: [facility] Address: [address] [place] [address] Performed By: #### 5 8410-2 #### [facility] CLIA [id number] [address] [place] [address] [place] MCHC (RBC) [Mass/Vol] 33.7 g/dL Normal 30.5-36.0 [facility] Comment on above: Order Comment: Speci men Type: BLOOD SPECIMEN Ordering Facility: [facility] Address: [address] [place] [address] Performed By: #### 5 8410-2 #### [facility] CLIA [id number] [address] [place] [address] [place] MCV (RBC) [Entitic vol] 90.7 fL Normal 80.0-100.0 [facility] Comment on above: Order Comment: Speci men Type: BLOOD SPECIMEN Ordering Facility: [facility] Address: [address] [place] [address] Performed By: #### 5 8410-2 #### [facility] CLIA [id number] [address] [place] [address] [place] Nucleated RBC (Bld) [#/Vol] 10*3/uL Normal <0.01 [facility] Comment on above: Order Comment: Speci men Type: BLOOD SPECIMEN Ordering Facility: [facility] Address: [address] [place] [address] Performed By: #### 5 8410-2 #### [facility] CLIA [id number] [address] [place] [address] [place] Platelet mean volume (Bld) [Entitic vol] 8.9 fL Low 9.0-12.7 [facility] Comment on above: Order Comment: Speci men Type: BLOOD SPECIMEN Ordering Facility: [facility] Address: [address] [place] [address] Performed By: #### 5 8410-2 #### [facility] CLIA [id number] [address] [place] [address] [place] Platelets (Bld) [#/Vol] 293 10*3/uL Normal 150-400 [facility] Comment on above: Order Comment: Speci men Type: BLOOD SPECIMEN Ordering Facility: [facility] Address: [address] [place] [address] Performed By: #### 5 8410-2 #### [facility] CLIA [id number] [address] [place] [address] [place] RBC (Bld) [#/Vol] 3.86 10*6/uL Low 3.90-5.20 [facility] Comment on above: Order Comment: Speci men Type: BLOOD SPECIMEN Ordering Facility: [facility] Address: [address] [place] [address] Performed By: #### 5 8410-2 #### [facility] CLIA [id number] [address] [place] [address] [place] WBC (Bld) [#/Vol] 11.25 10*3/uL High 3.70-11.00 [facility] Comment on above: Order Comment: Speci men Type: BLOOD SPECIMEN Ordering Facility: [facility] Address: [address] [place] [address] Performed By: #### 5 8410-2 #### [facility] CLIA [id number] [address] [place] [id number] [place] [facility] CONSULT PROGon 03-30-2022 CONSULT PROG HNO ID: [id number] Author: Joslyn Jain APRN.TUB OPERATOR Service: Pain Management Author Type: Nurse Practitioner [...] eGFR >= (more content not included)... Normal [facility] Magnesium SerPl-mCncon 03-30 Magnesium [Mass/Vol] 1.6 mg/dL Low 1.7-2.3 [facility] Comment on above: Order Comment: Speci men Type: BLOOD SPECIMEN Ordering Facility: [facility] Address: [address] [place] [address] Performed By: #### 1 9123-9, 2777-1, 83269-7 #### [facility] CLIA [id number] [address] [address] [place] [id number] [place] Phosphate SerPl-mCncon 03-30 Phosphate [Mass/Vol] 2.9 mg/dL Normal 2.7-4.8 [facility] Comment on above: Order Comment: Speci men Type: BLOOD SPECIMEN Ordering Facility: [facility] Address: [facility] [place] [address] Performed By: #### 1 9123-9, 2777-1, 69754-5 #### [facility] CLIA [id number] [address] [place] [id number] [place] ANES POSTPROC EVALon 022 ANES POSTPROC EVAL HNO ID: [id number] Author: Nathanael Craig DO Service: Anesthesiology Author [...] March 29, 2022 TIME: 8:29 AM CSN: [id number] Normal [facility] Basic metabolic 2000 panelon 03-29-2022 Anion gap [Moles/Vol] 9 mmol/L Normal 9-18 [facility] Comment on above: Order Comment: Speci men Type: BLOOD SPECIMEN Ordering Facility: [facility] Address: [address] [place] [address] Performed By: #### 5 8410-2 #### [facility] CLIA [id number] [address] [place] [address] [place] Calcium [Mass/Vol] 7.9 mg/dL Low 8.5-10.2 [facility] Comment on above: Order Comment: Speci men Type: BLOOD SPECIMEN Ordering Facility: [facility] Address: [address] [place] [address] Performed By: #### 5 8410-2 #### [facility] CLIA [id number] [address] [place] [address] [place] Chloride [Moles/Vol] 105 mmol/L Normal 97-105 [facility] Comment on above: Order Comment: Speci men Type: BLOOD SPECIMEN Ordering Facility: [facility] Address: [address] [place] [address] Performed By: #### 5 8410-2 #### [facility] CLIA [id number] [address] [place] [address] [place] CO2 [Moles/Vol] 24 mmol/L Normal 22-30 [facility] Comment on above: Order Comment: Speci men Type: BLOOD SPECIMEN Ordering Facility: [facility] Address: [address] [place] [address] Performed By: #### 5 8410-2 #### [facility] CLIA [id number] [address] [place] [address] [place] Creatinine [Mass/Vol] 0.70 mg/dL Normal 0.58-0.96 [facility] Comment on above: Order Comment: Leanne terry Type: BLOOD SPECIMEN Ordering Facility: [facility] Address: [address] [place] [address] Performed By: #### 5 8410-2 #### [facility] CLIA [id number] [place] [address] [place] ESTIMATED GLOMERULAR FILTRATION RATE 106 mL/min/1.73m??? Normal >=60 [facility] Comment on above: Order Comment: Leanne terry Type: BLOOD SPECIMEN Ordering Facility: [facility] Address: [address] [place] [address] Result Comment: Mary mated Glomerular Filtration Rate [...] GFR. Performed By: #### 5 8410-2 #### [facility] CLIA [id number] [address] [place] [address] [place] Glucose [Mass/Vol] 92 mg/dL Normal 74-99 [facility] Comment on above: Order Comment: Leanne terry Type: BLOOD SPECIMEN Ordering Facility: [facility] Address: [address] [place] [address] Result Comment: The [place] [employer] (ADA) provides guidance for cutoff [...] Standards of Medical Care in Diabetes 2016, [place] [employer]. Diabetes Care. 2016.39(Suppl 1). Performed By: #### 5 8410-2 #### [facility] CLIA [id number] [address] [place] [address] [place] Potassium [Moles/Vol] 4.1 mmol/L Normal 3.7-5.1 [facility] Comment on above: Order Comment: Speci men Type: BLOOD SPECIMEN Ordering Facility: [facility] Address: [address] [place] [address] Performed By: #### 5 8410-2 #### [facility] CLIA [id number] [address] [place] [address] [place] Sodium [Moles/Vol] 138 mmol/L Normal 136-144 [facility] Comment on above: Order Comment: Speci men Type: BLOOD SPECIMEN Ordering Facility: [facility] Address: [address] [place] [address] Performed By: #### 5 8410-2 #### [facility] CLIA [id number] [address] [place] [address] STATES [facility] Urea nitrogen [Mass/Vol] 12 mg/dL Normal 7-21 [facility] Comment on above: Order Comment: Speci men Type: BLOOD SPECIMEN Ordering Facility: [facility] Address: [address] [place] [address] Performed By: #### 5 8410-2 #### [facility] CLIA [id number] [address] [place] [address] [place] CBC W Auto Differential pane l (Bld)on 03-29-2022 Basophils (Bld) [#/Vol] 0.04 10*3/uL Normal <0.11 [facility] Comment on above: Order Comment: Speci men Type: BLOOD SPECIMEN Ordering Facility: [facility] Address: [address] [place] [address] Performed By: #### 5 7021-8 #### [facility] CLIA [id number] [address] [place] [address] [place] Basophils/100 WBC (Bld) 0.6 % Normal [facility] Comment on above: Order Comment: Speci men Type: BLOOD SPECIMEN Ordering Facility: [facility] Address: [address] [place] [address] Performed By: #### 5 7021-8 #### [facility] CLIA [id number] [address] [place] [address] [place] Differential cell count method Nom (Bld) Auto Normal [facility] Comment on above: Order Comment: Speci men Type: BLOOD SPECIMEN Ordering Facility: [facility] Address: [address] [place] [address] Performed By: #### 5 7021-8 #### [facility] CLIA [id number] [address] [place] [address] [place] Eosinophils (Bld) [#/Vol] 0.16 10*3/uL Normal <0.46 [facility] Comment on above: Order Comment: Speci men Type: BLOOD SPECIMEN Ordering Facility: [facility] Address: [address] [place] [address] Performed By: #### 5 7021-8 #### [facility] CLIA [id number] [address] [place] [address] STATES [facility] Eosinophils/100 WBC (Bld) 2.3 % Normal [facility] Comment on above: Order Comment: Speci men Type: BLOOD SPECIMEN Ordering Facility: [facility] Address: [address] [place] [address] Performed By: #### 5 7021-8 #### [facility] CLIA [id number] [address] [place] [address] [place] Erythrocyte distribution width (RBC) [Ratio] 12.8 % Normal 11.5-15.0 [facility] Comment on above: Order Comment: Speci men Type: BLOOD SPECIMEN Ordering Facility: [facility] Address: [address] [place] [address] Performed By: #### 5 7021-8 #### [facility] CLIA [id number] [address] [place] [address] [place] Hematocrit (Bld) [Volume fraction] 32.3 % Low 36.0-46.0 [facility] Comment on above: Order Comment: Speci men Type: BLOOD SPECIMEN Ordering Facility: [facility] Address: [address] [place] [address] Performed By: #### 5 7021-8 #### [facility] CLIA [id number] [address] [place] [address] [place] Hemoglobin (Bld) [Mass/Vol] 10.7 g/dL Low 11.5-15.5 [facility] Comment on above: Order Comment: Speci men Type: BLOOD SPECIMEN Ordering Facility: [facility] Address: [address] [place] [address] Performed By: #### 5 7021-8 #### [facility] CLIA [id number] [address] [place] [address] IMMATURE GRAN % 0.3 % Normal [facility] Comment on above: Order Comment: Speci men Type: BLOOD SPECIMEN Ordering Facility: [facility] Address: [address] [place] [address] Performed By: #### 5 7021-8 #### [facility] CLIA [id number] [address] [place] [address] IMMATURE GRAN ABS <0.03 Normal <0.10 [facility] Comment on above: Order Comment: Speci men Type: BLOOD SPECIMEN Ordering Facility: [facility] Address: [address] [place] [address] Performed By: #### 5 7021-8 #### [facility] CLIA [id number] [address] [place] [address] [place] Lymphocytes (Bld) [#/Vol] 1.39 10*3/uL Normal 1.00-4.00 [facility] Comment on above: Order Comment: Speci men Type: BLOOD SPECIMEN Ordering Facility: [facility] Address: [address] [place] [address] Performed By: #### 5 7021-8 #### [facility] CLIA [id number] [address] [place] [address] [place] Lymphocytes/100 WBC (Bld) 19.7 % Normal [facility] Comment on above: Order Comment: Speci men Type: BLOOD SPECIMEN Ordering Facility: [facility] Address: [address] [place] [address] Performed By: #### 5 7021-8 #### [facility] CLIA [id number] [address] [place] [address] [place] MCH (RBC) [Entitic mass] 29.8 pg Normal 26.0-34.0 [facility] Comment on above: Order Comment: Speci men Type: BLOOD SPECIMEN Ordering Facility: [facility] Address: [address] [place] [address] Performed By: #### 5 7021-8 #### [facility] CLIA [id number] [address] [place] [address] [place] MCHC (RBC) [Mass/Vol] 33.1 g/dL Normal 30.5-36.0 [facility] Comment on above: Order Comment: Speci men Type: BLOOD SPECIMEN Ordering Facility: [facility] Address: [address] [place] [address] Performed By: #### 5 7021-8 #### [facility] CLIA [id number] [address] [place] [address] MCV (RBC) [Entitic vol] 90.0 fL Normal 80.0-100.0 [facility] Comment on above: Order Comment: Speci men Type: BLOOD SPECIMEN Ordering Facility: [facility] Address: [address] [place] [address] Performed By: #### 5 7021-8 #### [facility] CLIA [id number] [address] [place] [address] [place] Monocytes (Bld) [#/Vol] 0.55 10*3/uL Normal <0.87 [facility] Comment on above: Order Comment: Speci men Type: BLOOD SPECIMEN Ordering Facility: [facility] Address: [address] [place] [address] Performed By: #### 5 7021-8 #### [facility] CLIA [id number] [address] [place] [address] [place] Monocytes/100 WBC (Bld) 7.8 % Normal [facility] Comment on above: Order Comment: Speci men Type: BLOOD SPECIMEN Ordering Facility: [facility] Address: [address] [place] [address] Performed By: #### 5 7021-8 #### [facility] CLIA [id number] [address] [place] [address] [place] Neutrophils (Bld) [#/Vol] 4.88 10*3/uL Normal 1.45-7.50 [facility] Comment on above: Order Comment: Speci men Type: BLOOD SPECIMEN Ordering Facility: [facility] Address: [address] [place] [address] Performed By: #### 5 7021-8 #### [facility] CLIA [id number] [address] [place] [address] [place] Neutrophils/100 WBC (Bld) 69.3 % Normal [facility] Comment on above: Order Comment: Speci men Type: BLOOD SPECIMEN Ordering Facility: [facility] Address: [address] [place] [address] Performed By: #### 5 7021-8 #### [facility] CLIA [id number] [address] [place] [address] [place] Nucleated RBC (Bld) [#/Vol] 10*3/uL Normal <0.01 [facility] Comment on above: Order Comment: Speci men Type: BLOOD SPECIMEN Ordering Facility: [facility] Address: [address] [place] [address] Performed By: #### 5 7021-8 #### [facility] CLIA [id number] [address] [place] [address] [place] Nucleated RBC/100 WBC (Bld) [Ratio] 0.0 /100 WBC Normal [facility] Comment on above: Order Comment: Speci men Type: BLOOD SPECIMEN Ordering Facility: [facility] Address: [address] [place] [address] Performed By: #### 5 7021-8 #### [facility] CLIA [id number] [address] [place] [address] [place] Platelet mean volume (Bld) [Entitic vol] 9.0 fL Normal 9.0-12.7 [facility] Comment on above: Order Comment: Speci men Type: BLOOD SPECIMEN Ordering Facility: [facility] Address: [address] [place] [address] Performed By: #### 5 7021-8 #### [facility] CLIA [id number] [address] [place] [address] [place] Platelets (Bld) [#/Vol] 241 10*3/uL Normal 150-400 [facility] Comment on above: Order Comment: Speci men Type: BLOOD SPECIMEN Ordering Facility: [facility] Address: [address] [place] [address] Performed By: #### 5 7021-8 #### [facility] CLIA [id number] [address] [place] [address] [place] RBC (Bld) [#/Vol] 3.59 10*6/uL Low 3.90-5.20 [facility] Comment on above: Order Comment: Speci men Type: BLOOD SPECIMEN Ordering Facility: [facility] Address: [address] [place] [address] Performed By: #### 5 7021-8 #### [facility] CLIA [id number] [address] [place] [address] [place] WBC (Bld) [#/Vol] 7.04 10*3/uL Normal 3.70-11.00 [facility] Comment on above: Order Comment: Speci men Type: BLOOD SPECIMEN Ordering Facility: [facility] Address: [address] [place] [address] Performed By: #### 5 7021-8 #### [facility] CLIA [id number] [address] [place] [address] [place] CONSULT PROGon 03-29-2022 CONSULT PROG HNO ID: [id number] Author: Joslyn Jain APRN.TUB OPERATOR Service: Pain Management Author Type: Nurse Practitioner [...] is on liq diet, currently on Dilaudid STAVE BOLT EQUALIZER at 0/0.2/10/6 last 2 hours 06/27 bolus [...] No Relieved: Yes - NOW with increase STAVE BOLT EQUALIZER and Repositioning and STAVE BOLT EQUALIZER Is patient satisfied with pain control: Yes [...] mL PERIPHERAL NERVE CATHETER CONTINUOUS - HYDROmorphone STAVE BOLT EQUALIZER 0.5 mg/mL in NaCl 0.9% 100 mL [...] % 69.3 (more content not included)... Normal [facility] Magnesium SerPl-mCncon 03-29 Magnesium [Mass/Vol] 1.4 mg/dL Low 1.7-2.3 [facility] Comment on above: Order Comment: Speci men Type: BLOOD SPECIMEN Ordering Facility: [facility] Address: [address] [place], [place] [address] Performed By: #### 5 8410-2 #### [facility] CLIA [id number] [address] [place] [address] [place] NURSING PROGon 03-29-2022 NURSING PROG HNO ID: [id number] Author: Juan Crowley RN Service: Nursing Author Type: Registered Nurse Type: Nursing Progress Note Filed: 03/29/2022 2:00 PM Note Text: Nursing Progress Note Patient Name: Mary Leal Patient Location: / Daily Note: Patient VSS. RA POx. Pain level better controlled now that STAVE BOLT EQUALIZER initiated. B/L Ropivacaine Tap Blocks with dressings [...] staff. This note was completed by: Juan [facility] NURSING PROG HNO ID: [id number] Author: Kev Leone RN Service: ? Author Type: Registered Nurse Type: Nursing Progress Note Filed: 03/29/2022 3:53 AM Note Text: Nursing Progress Note Patient Name: Mary Leal Patient Location: Daily Note: 0350: Pt states she is in 10/10 pain, pt has no PO pain meds ordered, page sent to surgery resident This note was completed by: Kev Leone [facility] PT EDon 03-29-2022 PT ED HNO ID: [id number] Author: Merced Morales DTR Service: Nutrition Therapy Author Type: Senior Office Assistant Type: Patient Education Filed: 03/29/2022 11:05 AM [...] March 29, 2022 TIME: 11:04 AM PAGER: Normal [facility] Phosphate SerPl-mCncon 03-29 Phosphate [Mass/Vol] 2.9 mg/dL Normal 2.7-4.8 [facility] Comment on above: Order Comment: Speci men Type: BLOOD SPECIMEN Ordering Facility: [facility] Address: [address] [place] [address] Performed By: #### 5 8410-2 #### [facility] CLIA [id number] [address] [place] [address] [place] ANES PRE-OPon 03-28-2022 ANES PRE-OP HNO ID: [id number] Author: Anibal Bertrand MD Service: Anesthesiology Author [...] none. Vitals Value Taken Time BP 114/77 03/28/22 0813 Pulse 80 03/28/22 0813 Resp Temp 36.1 ?C (97 ?F) 03/28/22 0813 SpO2 98 % 03/28/22 0813 Facility-Administered Medications as of 03/28/2022 Medication Dose [...] LUNGS every 4 hours if needed - qivuicoxmer-mwpczbwmt-zhy anter (TRELEGY ELLIPTA) 100-62.5-25 mcg Inhale 1 [...] (FLONASE) 50 mcg/actuation nasal spray Use 1 [place] in each nostril on (more content not included)... [facility] BRIEF OP NOTon 03-28-2022 BRIEF OP NOT HNO ID: [id number] Author: Nita Lamas MD Service: Colorectal Author Type: Fellow Type: Brief Op Note Filed: 03/28/2022 3:43 PM Note Text: BRIEF OPERATIVE NOTE - COLORECTAL SURGERY Log ID: [id number] Surgery/Procedure Date: 03/28/2022 Incision/Procedure Start Time: 9:47 AM Incision Close/Procedure End Time: 3:40 PM Surgeon(s) and Insulation Extruder Operator(s): Surgeon(s) and Role: * Mary Obrien [...] with stoma closure Complications: None SIGNATURE: Nita Laams MD PATIENT NAME: Mary Leal DATE: March 28, 2022 TIME: 3:42 PM [facility] NURSING PROGon 03-28-2022 NURSING PROG HNO ID: [id number] Author: Merced Lay RN Service: ? Author Type: Registered Nurse Type: Nursing Progress Note Filed: 03/28/2022 6:56 PM Note Text: Nursing Progress Note Patient Name: Mary Leal Patient Location: [address]/GY1P-72 Transfer Note: Patient transferred into room/unit PK3B22 in stable condition. Actions taken: No futher actions taken at this time. Will continue to monitor and check with patient. Paged surgical team. Pt has TAP blocks, but orders were discontinued from PACU. New orders for blocks need to be placed in eMAR. Awaiting call back or orders. This note was completed by: Merced Lay [facility] NURSING PROG HNO ID: [id number] Author: Monica Nicole RN Service: Nursing Author Type: Registered Nurse Type: Nursing Progress Note Filed: 03/28/2022 6:35 PM Note Text: Nursing Progress Note Patient Name: Mary Leal Patient Location: [facility] OR POOL/[facility] OR POOL Daily Note: 1750: Dr. Novak notified of patients increase in heart rate from arrival to post op. Patient HR now maintaining in the 120s. 1830: physician president rounding at patient bedside. Dressing and abdomen assessed- drainage to be expected on island dressing. Notified him of patients HR running high and notified that patient normally takes 50mg atenolol but held today for surgery. Patient's pain managed and other VS stable at this time. physician president is OK with patient going to regular nursing floor at this time. Family updated. This note was completed by: Monica Nicole [facility] NURSING PROG HNO ID: [id number] Author: Vianney Chacon RN Service: Nursing Author [...] (RECOMMENDATION): None Electronically Signed By: Vianney Chacon [facility] OPERATIVE NOon 03-28-2022 OPERATIVE NO HNO ID: [id number] Author: Mary Obrien MD Service: Colorectal Author Type: Physician Type: Operative Report Filed: 03/28/2022 5:06 PM Note Text: COLON AND RECTAL SURGERY OPERATIVE REPORT PATIENT NAME: Mary Leal ADMISSION DATE: 03/28/2022 LOG ID: [id number] SURGERY/PROCEDURE DATE: 03/28/2022 INCISION/PROCEDURE START TIME: 9:47 AM INCISION CLOSE/PROCEDURE END TIME: 3:40 PM AGE: [age] year old SEX: female SURGEON(S)/PROCEDURALIST( S) AND HELPER ELECTRICAL(S): Surgeon(s) and Role: * Mary Obrien MD [...] The abdome (more content not included)... Normal [facility] SURGICAL PATHOLOGYon CASE REPORT Normal [facility] Comment on above: Order Comment: Speci men Type: BLOOD SPECIMEN Ordering Facility: [facility] Address: [address] [place] [address] Result Comment: Surg ica Pathology Report Case: [id number] Authorizing Provider: Mary Obrien MD Collected: 03/28/2022 01:43 PM Ordering Location: [facility] Received: 03/28/2022 04:10 PM Operating Room Pathologist: Areli Rodriguez MD Specimen: COLON RESECTION, terminal ileum with ileostomy Performed By: #### 5 7021-8 #### [facility] CLIA [id number] CLINICAL HISTORY ILEORECTAL ANASTOMOS IS, TAKEDOWN OF ILEOSTOMY Normal [facility] Comment on above: Order Comment: Speci men Type: BLOOD SPECIMEN Ordering Facility: [facility] Address: [address] [place], [place] [address] Performed By: #### 5 7021-8 #### [facility] CLIA [id number] [address] DIAGNOSIS COMMENT The histologic findi ngs [...] of associated inflammation or infectious organisms. Normal [facility] Comment on above: Order Comment: Speci men Type: BLOOD SPECIMEN Ordering Facility: [facility] Address: [address] [place] [address] Performed By: #### 5 7021-8 #### [facility] CLIA [id number] [address] [place] [address] FINAL DIAGNOSIS Normal [facility] Comment on above: Order Comment: Speci men Type: BLOOD SPECIMEN Ordering Facility: [facility] Address: [address] [place] [address] Result Comment: [place] n and terminal ileum with ileostomy, resection: - Colon with patchy active colitis, submucosal fibrosis, acute serositis, and fibrovascular adhesions (see comment). - Small bowel with focal transmural defect, acute serositis, fibrovascular adhesions, and changes consistent with ileostomy site. - Benign lymph nodes. JEL 03/31/2022 Performed By: #### 5 7021-8 #### [facility] CLIA [id number] [address] [place] [address] FINAL PERFORMING LAB Normal [facility] Comment on above: Order Comment: Speci men Type: BLOOD SPECIMEN Ordering Facility: [facility] Address: [address] [place] [address] Result Comment: Diag nostic interpretation performed at [facility], [address] [place] [address] CLIA# [id number] Booster Operator: Joshua Anderson M.D. Performed By: #### 5 7021-8 #### [facility] CLIA [id number] [address] [place] [address] GROSS DESCRIPTION Normal [facility] Comment on above: Order Comment: Speci men Type: BLOOD SPECIMEN Ordering Facility: [facility] Address: [address] [place] [address] Result Comment: A. C OLON RESECTION. Received [...] diverticula. The serosa is jaimes-pink and smooth. Brusher Warp sections are submitted from distal to proximal [...] 2022 9:53 AM Gross examination performed at [facility], [address] [place] [address] CLIA # [id number] Performed By: #### 5 7021-8 #### [facility] CLIA [id number] [place] [address] [place] Q - CBC W/DIFF AND PLTon BASOABS 59 cells/uL Normal 0-200 [facility] Specialist Comment on above: Order Comment: [facility] performed at: Scope 5, [facility], [address] , [address] [place] [address], [address] [place] [address], Booster Operator: Gopal Hamilton MD [facility] Date/Time: [facility] Results Received Date/Time: [facility] Reported Date/Time: Performed By: #### 9 68T, 59961L, %8293, 50061W, 6399, 496X #### [facility] Default [address] [place] [address] Basophils/100 WBC (Bld) 1.0 % Normal [facility] Specialist Comment on above: Order Comment: [facility] performed at: [place] [facility], [address] , [address] [place] [address], [address] [place] [address], Booster Operator: Gopal Hamilton MD [facility] Date/Time: [facility] Results Received Date/Time: [facility] Reported Date/Time: Performed By: #### 9 68T, 36980X, %8293, 35132K, 6399, 496X #### [facility] Default [address] [place] [address] EOSABS 171 cells/uL Normal 15-500 [facility] Supervisor Comment on above: Order Comment: [facility] performed at: Scope 5, [employer] [facility], [address] , [address] [place] [address], [address] [place] [address], Booster Operator: Gopal Hamilton MD [facility] Date/Time: [facility] Results Received Date/Time: [facility] Reported Date/Time: Performed By: #### 9 68T, 81647T, %8293, 24271B, 6399, 496X #### [facility] Default [address] [place] [address] Eosinophils/100 WBC (Bld) 2.9 % Normal [facility] Repair Department Supervisor Comment on above: Order Comment: [facility] performed at: Scope 5, [employer] [facility], [address] [place] [address], [address] [place] [address], [address] [place] [address], Booster Operator: Gopal Hamilton MD [facility] Date/Time: [facility] Results Received Date/Time: [facility] Reported Date/Time: Performed By: #### 9 68T, 58158T, %8293, 75501I, 6399, 496X #### [facility] Default [address] [place] [address] Erythrocyte distribution width (RBC) [Ratio] 12.9 % Normal 11.0-15.0 [facility] Repair [facility] Supervisor Comment on above: Order Comment: [facility] performed at: Scope 5, [employer] [facility], [address] [place] [address], [address] [place] [address], [address] [place] [address], Booster Operator: Gopal Hamilton MD [facility] Date/Time: [facility] Results Received Date/Time: [facility] Reported Date/Time: Performed By: #### 9 68T, 97600W, %8293, 47002U, 6399, 496X #### [facility] Default [address] [place] [address] Hematocrit (Bld) [Volume fraction] 38.1 % Normal 35.0-45.0 [facility] Repair Department Supervisor Comment on above: Order Comment: [facility] performed at: Scope 5, [employer] [facility], [address] [place] [address], [address] [place] [address], [address] [place] [address], Booster Operator: Gopal Hamilton MD [facility] Date/Time: [facility] Results Received Date/Time: [facility] Reported Date/Time: Performed By: #### 9 68T, 05772J, %8293, 97754B, 6399, 496X #### [facility] Default [address] [place] [address] Hemoglobin (Bld) [Mass/Vol] 12.9 g/dL Normal 11.7-15.5 [facility] Repair Department Supervisor Comment on above: Order Comment: [facility] performed at: Scope 5, [employer] [facility], [address] [facility], [address] [place] [address], , Booster Operator: Gopal Hamilton MD [facility] Date/Time: [facility] Results Received Date/Time: [facility] Reported Date/Time: Performed By: #### 9 68T, 17055X, %8293, 79474D, 6399, 496X #### [facility] Default [address] [place] [address] Lymphocytes (Bld) [#/Vol] 1.375 10*3/uL Normal 850-3900 [facility] Repair Department Supervisor Comment on above: Order Comment: [facility] performed at: Scope 5, [employer] [facility], [address] [facility], [address] [place] [address], , Booster Operator: Gopal Hamilton MD [facility] Date/Time: [facility] Results Received Date/Time: [facility] Reported Date/Time: Performed By: #### 9 68T, 31691M, %8293, 10676L, 6399, 496X #### [facility] Default [address] [place] [address] Lymphocytes/100 WBC (Bld) 23.3 % Normal [facility] Repair Department Supervisor Comment on above: Order Comment: [facility] performed at: Scope 5, [employer] [facility], [address] , [address] [place] [address], [address] [place] [address], Booster Operator: Gopal Hamilton MD [facility] Date/Time: [facility] Results Received Date/Time: [facility] Reported Date/Time: Performed By: #### 9 68T, 96976P, %8293, 22670Q, 6399, 496X #### [facility] Default [address] [place] [address] MCH (RBC) [Entitic mass] 30.0 pg Normal 27.0-33.0 [facility] Specialist Comment on above: Order Comment: Quest Testing performed at: [facility], [address] [place] [address], [address] [place] [address], [address] [place] [address], Booster Operator: Gopal Hamilton MD Quest Collection Date/Time: [facility] Results Received Date/Time: [facility] Reported Date/Time: Performed By: #### 9 68T, 56793B, %8293, 81803F, 6399, 496X #### [facility] Default [address] [place] [address] MCHC (RBC) [Mass/Vol] 33.9 g/dL Normal 32.0-36.0 [facility] Comment on above: Order Comment: Quest Testing performed at: [facility], [facility], [address] [place] [address], [address] [place] [address], [address] [place] [address], Booster Operator: Gopal Hamilton MD [facility] Collection Date/Time: [facility] Results Received Date/Time: [facility] Reported Date/Time: Performed By: #### 9 68T, 85300R, %8293, 17944T, 6399, 496X #### [facility] Default [address] [place] [address] MCV (RBC) [Entitic vol] 88.6 fL Normal 80.0-100.0 [facility] Repair Department Supervisor Comment on above: Order Comment: Quest Testing performed at: [employer], [employer], [address] [place] [address], [address] [place] [address], [address] [place] [address], Booster Operator: Gopal Hamilton MD [facility] Collection Date/Time: [facility] Results Received Date/Time: [facility] Reported Date/Time: Performed By: #### 9 68T, 09053P, %8293, 44843U, 6399, 496X #### [facility] Default [address] [place] [address] MONOABS 460 cells/uL Normal 200-950 [facility] Specialist Comment on above: Order Comment: Quest Testing performed at: [employer], [employer] [facility], [address] [place] [address], [address] [place] [address], [address] [place] [address], Booster Operator: Gopal Hamilton MD [facility] Collection Date/Time: [facility] Results Received Date/Time: [facility] Reported Date/Time: Performed By: #### 9 68T, 88996D, %8293, 85442N, 6399, 496X #### [facility] Default [address] [place] [address] Monocytes/100 WBC (Bld) 7.8 % Normal [facility] Specialist Comment on above: Order Comment: [facility] Testing performed at: [facility], [facility], [address] [place] [address], [address] [place] [address], [address] [place] [address], Booster Operator: Gopal Hamilton MD [facility] Collection Date/Time: [facility] Results Received Date/Time: [facility] Reported Date/Time: Performed By: #### 9 68T, 42140O, %8293, 90076B, 6399, 496X #### [facility] Default [address] [place] [address] Neutrophils (Bld) [#/Vol] 3.835 10*3/uL Normal 3004-4048 [facility] Specialist Comment on above: Order Comment: [facility] Testing performed at: [facility], [facility], [address] [place] [address], [address] [place] [address], [address] [place] [address], Booster Operator: Gopal Hamilton MD [facility] Collection Date/Time: [facility] Results Received Date/Time: [facility] Reported Date/Time: Performed By: #### 9 68T, 38694Z, %8293, 97439O, 6399, 496X #### [facility] Default [address] [place] [address] Neutrophils/100 WBC (Bld) 65 % Normal [facility] Specialist Comment on above: Order Comment: [facility] Testing performed at: [facility], [facility], [address] [facility], [address] [place] [address], [address] [place] [address], Booster Operator: Gopal Hamilton MD [facility] Collection Date/Time: [facility] Results Received Date/Time: [facility] Reported Date/Time: Performed By: #### 9 68T, 82145M, %8293, 47613V, 6399, 496X #### [facility] Default [address] [place] [address] Platelet mean volume (Bld) [Entitic vol] 9.3 fL Normal 7.5-12.5 [facility] Repair Department Supervisor Comment on above: Order Comment: [facility] Testing performed at: [facility], [facility], [address] [place] [address], [address] [place] [address], [address] [place] [address], Booster Operator: Gopal Hamilton MD [facility] Collection Date/Time: [facility] Results Received Date/Time: [facility] Reported Date/Time: Performed By: #### 9 68T, 20482N, %8293, 08186X, 6399, 496X #### [facility] Default [address] [place] [address] Platelets (Bld) [#/Vol] 409 10*3/uL High 140-400 [facility] Specialist Comment on above: Order Comment: [facility] Testing performed at: [facility], [employer] [facility], [address] [place] [address], [address] [place] [address], [address] [place] [address], Booster Operator: Gopal Hamilton MD [facility] Collection Date/Time: [facility] Results Received Date/Time: [facility] Reported Date/Time: Performed By: #### 9 68T, 60211E, %8293, 79026S, 6399, 496X #### [facility] Default [address] [place] [address] RBC (Bld) [#/Vol] 4.30 10*6/uL Normal 3.80-5.10 Daren douglass [place] [facility] Supervisor Comment on above: Order Comment: [facility] Testing performed at: [facility], [facility], [address] [place] [address], [address] [place] [address], [address] [place] [address], Booster Operator: Gopal Hamilton MD [facility] Collection Date/Time: [facility] Results Received Date/Time: [facility] Reported Date/Time: Performed By: #### 9 68T, 88326W, %8293, 20602A, 6399, 496X #### [facility] Default [address] [place] [address] WBC (Bld) [#/Vol] 5.9 10*3/uL Normal 3.8-10.8 Jay gambino [place] [facility] Supervisor Comment on above: Order Comment: Quest Testing performed at: [facility], [address] [facility], [address] [place] [address], [address] [place] [address], Booster Operator: Gopal Hamilton MD [facility] Collection Date/Time: [id number] Quest Results Received Date/Time: [facility] Reported Date/Time: Performed By: #### 9 68T, 27679S, %8293, 60315H, 6399, 496X #### [facility] Default [address] [place] [address] Q - COMPREHENSIVE METABOLIC PANEL W/EGFRon 03-10-2022 Albumin [Mass/Vol] 4.3 g/dL Normal 3.6-5.1 [facility] Specialist Comment on above: Order Comment: Quest Testing performed at: [employer], [employer] [facility], [address] [place] [address], [address] [place] [address], [address] [place] [address], Booster Operator: Gopal Hamilton MD Quest Collection Date/Time: [facility] Results Received Date/Time: [facility] Reported Date/Time: Performed By: #### 9 68T, 93268G, %8293, 74496J, 6399, 496X #### [facility] Default [address] [place] [address] Albumin/Globulin [Mass ratio] 1.7 {ratio} Normal 1.0-2.5 [facility] Specialist Comment on above: Order Comment: [facility] Testing performed at: [facility], [facility], [address] [place] [address], [address] [place] [address], [address] [place] [address], Booster Operator: oGpal Hamilton MD Quest Collection Date/Time: [facility] Results Received Date/Time: [facility] Reported Date/Time: Performed By: #### 9 68T, 46489L, %8293, 69567A, 6399, 496X #### [facility] Default [address] [place] [address] ALP [Catalytic activity/Vol] 134 U/L High 31-125 [facility] Specialist Comment on above: Order Comment: [facility] Testing performed at: [facility], [employer] [facility], [address] [place] [address], [address] [place] [address], [address] [place] [address], Booster Operator: Gopal Hamilton MD [facility] Collection Date/Time: [facility] Results Received Date/Time: [facility] Reported Date/Time: Performed By: #### 9 68T, 57803B, %8293, 08946R, 6399, 496X #### [facility] Default [address] [place] [address] ALT [Catalytic activity/Vol] 41 U/L High 6-29 [facility] Repair Department Supervisor Comment on above: Order Comment: [facility] Testing performed at: [facility], [employer] [facility], [address] [place] [address], [address] [place] [address], [address] [place] [address], Booster Operator: Gopal Hamilton MD Quest Collection Date/Time: [facility] Results Received Date/Time: [facility] Reported Date/Time: Performed By: #### 9 68T, 32491T, %8293, 59764I, 6399, 496X #### [facility] Default [address] [place] [address] AST [Catalytic activity/Vol] 33 U/L Normal 10-35 [facility] Specialist Comment on above: Order Comment: [facility] Testing performed at: [facility], [employer] [facility], [address] [place] [address], [address] [place] [address], [address] [place] [address], Booster Operator: Gopal Hamilton MD Quest Collection Date/Time: Quest Results Received Date/Time: [facility] Reported Date/Time: Performed By: #### 9 68T, 62806V, %8293, 05412J, 6399, 496X #### [facility] Default [address] [place] [address] BUN/CREA 17 NOT APPLICABLE Normal 6-22 [facility] Specialist Comment on above: Order Comment: Quest Testing performed at: [facility], [facility], [address] [place] [address], [address] [place] [address], [address] [place] [address], Booster Operator: Gopal Hamilton MD Quest Collection Date/Time: [id number] Quest Results Received Date/Time: [facility] Reported Date/Time: Performed By: #### 9 68T, 95658B, %8293, 07996K, 6399, 496X #### [facility] Default [address] [place] [address] Calcium [Mass/Vol] 9.6 mg/dL Normal 8.6-10.2 [facility] Repair Department Supervisor Comment on above: Order Comment: [facility] Testing performed at: [facility], [facility], [address] [facility], [address] [place] [address], [address] [place] [address], Booster Operator: Gopal Hamilton MD Quest Collection Date/Time: [facility] Results Received Date/Time: [facility] Reported Date/Time: Performed By: #### 9 68T, 88339G, %8293, 63558S, 6399, 496X #### [facility] Default [address] [place] [address] Chloride [Moles/Vol] 103 mmol/L Normal 98-110 [facility] Specialist Comment on above: Order Comment: Quest Testing performed at: [facility], [facility], [address] [place] , [address] [place] [address], [address] [place] [address], Booster Operator: Gopal Hamilton MD Quest Collection Date/Time: Quest Results Received Date/Time: [facility] Reported Date/Time: Performed By: #### 9 68T, 20718R, %8293, 68347R, 6399, 496X #### [facility] Default [address] [place] [address] CO2 [Moles/Vol] 27 mmol/L Normal 20-32 [facility] Specialist Comment on above: Order Comment: Quest Testing performed at: [facility], [facility], [address] , [address] [place] [address], [address] [place] [address], Booster Operator: Gopal Hamilton MD Quest Collection Date/Time: Quest Results Received Date/Time: Quest Reported Date/Time: Performed By: #### 9 68T, 48506X, %8293, 69057C, 6399, 496X #### [facility] Default [address] [place] [address] Creatinine [Mass/Vol] 0.65 mg/dL Normal 0.50-1.10 [facility] Repair Department Supervisor Comment on above: Order Comment: Quest Testing performed at: [employer], [employer] [facility], [address] [place] [address], [address] [place] [address], [address] [place] [address], Booster Operator: Gopal Hamilton MD Quest Collection Date/Time: Quest Results Received Date/Time: [facility] Reported Date/Time: Performed By: #### 9 68T, 54558C, %8293, 92008R, 6399, 496X #### [facility] Default [address] [place] [address] eGFRAA (Quest) 121 mL/min/1.73m2 Normal > OR = 60 [facility] Repair Department Supervisor Comment on above: Order Comment: Quest Testing performed at: [facility], [employer] [facility], [address] [facility], [address] [place] [address], [address] [place] [address], Booster Operator: Gopal Hamilton MD Quest Collection Date/Time: Quest Results Received Date/Time: [facility] Reported Date/Time: Performed By: #### 9 68T, 58492K, %8293, 93407S, 6399, 496X #### [facility] Default [address] [place] [address] eGFRNAA (Quest) 104 mL/min/1.73m2 Normal > OR = 60 No [facility] Repair Department Supervisor Comment on above: Order Comment: Quest Testing performed at: [facility], [facility], [address] [facility], [address] [place] [address], [address] [place] [address], Booster Operator: Gopal Hamilton MD Quest Collection Date/Time: Quest Results Received Date/Time: Quest Reported Date/Time: Performed By: #### 9 68T, 24756W, %8293, 72717L, 6399, 496X #### [facility] Default [address] [place] [address] Globulin (S) [Mass/Vol] 2.5 g/dL Normal 1.9-3.7 [facility] Repair Department Supervisor Comment on above: Order Comment: Quest Testing performed at: [employer], [employer] [facility], [address] [facility], [address] [place] [address], [address] [place] [address], Booster Operator: Gopal Hamilton MD Quest Collection Date/Time: Quest Results Received Date/Time: [facility] Reported Date/Time: Performed By: #### 9 68T, 84730Q, %8293, 48341P, 6399, 496X #### [facility] Default [address] [place] [address] Glucose [Mass/Vol] 94 mg/dL Normal 65-99 [facility] Repair Department Supervisor Comment on above: Order Comment: Quest Testing performed at: [facility], [facility] [facility], [address] [facility], [address] [place] [address], [address] [place] [address], Booster Operator: Gopal Hamilton MD Quest Collection Date/Time: Quest Results Received Date/Time: [facility] Reported Date/Time: Result Comment: Fasting reference interval Performed By: #### 9 68T, 78784R, %8293, 98016W, 6399, 496X #### [facility] Default [address] [place] [address] Potassium [Moles/Vol] 4.4 mmol/L Normal 3.5-5.3 [facility] Repair Department Supervisor Comment on above: Order Comment: Quest Testing performed at: [facility], [facility], [address] [facility], [address] [place] [address], [address] [place] [address], Booster Operator: Gopal Hamilton MD Quest Collection Date/Time: Quest Results Received Date/Time: [facility] Reported Date/Time: Performed By: #### 9 68T, 47487N, %8293, 01918I, 6399, 496X #### [facility] Default [address] [place] [address] Protein [Mass/Vol] 6.8 g/dL Normal 6.1-8.1 Jay gambino [place] Rep[facility] Supervisor Comment on above: Order Comment: [facility] Testing performed at: [facility], [employer] [facility], [address] [place] [address], [address] [place] [address], [address] [place] [address], Booster Operator: Gopal Hamilton MD Quest Collection Date/Time: Quest Results Received Date/Time: [facility] Reported Date/Time: Performed By: #### 9 68T, 41242N, %8293, 22136T, 6399, 496X #### [facility] Default [address] [place] [address] Sodium [Moles/Vol] 138 mmol/L Normal 135-146 Jay gambino [place] Rep[facility] Supervisor Comment on above: Order Comment: [facility] Testing performed at: [facility], [employer] [facility], [address] [place] [address], [address] [place] [address], [address] [place] [address], Booster Operator: Gopal Hamilton MD Quest Collection Date/Time: Quest Results Received Date/Time: [facility] Reported Date/Time: Performed By: #### 9 68T, 45085L, %8293, 56426X, 6399, 496X #### [facility] Default [address] [place] [address] TBIL <0.3 Normal 0.2-1.2 [facility] Repair Department Supervisor Comment on above: Order Comment: [facility] Testing performed at: [facility], [employer] [facility], [address] [place] [address], [address] [place] [address], [address] [place] [address], Booster Operator: Gopal Hamilton MD Quest Collection Date/Time: Quest Results Received Date/Time: [facility] Reported Date/Time: Performed By: #### 9 68T, 23174A, %8293, 25309O, 6399, 496X #### [facility] Default [address] [place] [address] Urea nitrogen [Mass/Vol] 11 mg/dL Normal 7-25 [facility] Repair Department Supervisor Comment on above: Order Comment: [facility] Testing performed at: [facility], [employer] [facility], [address] [place] [address], [address] [place] [address], [address] [place] [address], Booster Operator: Gopal Hamilton MD Quest Collection Date/Time: [facility] Results Received Date/Time: [facility] Reported Date/Time: Performed By: #### 9 68T, 94582K, %8293, 88699O, 6399, 496X #### [facility] Default [address] [place] [address] Q - DLDL REFLEXon 03-10-2022 Cholesterol in LDL [Mass/Vol] 87 mg/dL Normal <100 [facility] Repair Department Supervisor Comment on above: Order Comment: [facility] Testing performed at: [facility], [address] [place] [address], [address] [place] [address], [address] [place] [address], Booster Operator: Gopal Hamilton MD [facility] Collection Date/Time: [facility] Results Received Date/Time: [facility] Reported Date/Time: Result Comment: Desirable range <100 mg/dL for primary prevention; <70 mg/dL for patients with CHD or diabetic patients with > or = 2 CHD risk factors. Performed By: #### 9 68T, 54400K, %8293, 60754L, 6399, 496X #### [facility] Default [address] [place] [address] Q - HEMOGLOBIN A1Con 022 HEMOGLOBIN A1c 5.0 % of total Hgb Normal <5.7 No rthern [place] [facility] Supervisor Comment on above: Order Comment: [facility] Testing performed at: [facility], [address] [place] [address], [address] [place] [address], [address] [place] [address], Booster Operator: Gopal Hamilton MD [facility] Collection Date/Time: Quest [...] diagnosis of diabetes in children. According to [place] [employer] (ADA) guidelines, hemoglobin A1c <7.0% represents optimal control in non- diabetic patients. Different metrics may apply to specific patient populations. Standards of Medical Care in Diabetes(ADA). Performed By: #### 9 68T, 25496K, %8293, 98125N, 6399, 496X #### [facility] Default [address] [place] [address] Q - Lipid Panelon 03-10-2022 Cholesterol [Mass/Vol] 230 mg/dL High <200 [facility] Comment on above: Order Comment: [facility] Testing performed at: [facility], [address] [place] [address], [address] [place] [address], [address] [place] [address], Booster Operator: Gopal Hamilton MD [facility] Collection Date/Time: [facility] Results Received Date/Time: [facility] Reported Date/Time: Performed By: #### 9 68T, 45725M, %8293, 42769M, 6399, 496X #### [facility] Default [address] [place] [address] Cholesterol in HDL [Mass/Vol] 52 mg/dL Normal > OR = 50 [facility] Comment on above: Order Comment: [facility] Testing performed at: [facility], [facility] [facility], [address] [place] [address], [address] [place] [address], [address] [place] [address], Booster Operator: Gopal Hamilton MD [facility] Collection Date/Time: [facility] Results Received Date/Time: [facility] Reported Date/Time: Performed By: #### 9 68T, 61303I, %8293, 37087N, 6399, 496X #### [facility] Default [address] [place] [address] Cholesterol.total/Chol esterol in HDL [Mass ratio] 4.4 {ratio} Normal <5.0 [facility] Repair Department Supervisor Comment on above: Order Comment: [facility] Testing performed at: [employer], [facility] [facility], [address] [facility], [address] [place] [address], [address] [place] [address], Booster Operator: Gopal Hamilton MD [facility] Collection Date/Time: [facility] Results Received Date/Time: [facility] Reported Date/Time: Performed By: #### 9 68T, 33409P, %8293, 66762I, 6399, 496X #### [facility] Default [address] [place] [address] LDLD SEE NOTE Normal [facility] Repair Department Supervisor Comment on above: Order Comment: [facility] Testing performed at: [employer], [facility] [facility], [address] [facility], [address] [place] [address], [address] [place] [address], Booster Operator: Gopal Hamilton MD [facility] Collection Date/Time: [facility] Results Received Date/Time: [facility] Reported Date/Time: Result Comment: LDL cholesterol not calculated. Triglyceride levels greater than 400 mg/dL invalidate calculated LDL results. Reference range: <100 Desirable range <100 mg/dL for primary prevention; <70 mg/dL for patients with CHD or diabetic patients with > or = 2 CHD risk factors. LDL-C is now calculated using the Estevan-Tracie calculation, which is a validated novel method providing better accuracy than the Friedewald equation in the estimation of LDL-C. Estevan SS et al. ZANA. 2013;310(19): 5416-5689 (http://education.MoneyDesktop.Certain/faq/TOC878) Performed By: #### 9 68T, 55829T, %8293, 89666K, 6399, 496X #### [facility] Default [address] [place] [address] NON HDL CHOLESTEROL 178 mg/dL (calc) High <130 [facility] Repair Department Supervisor Comment on above: Order Comment: [facility] Testing performed at: [facility], [facility] [facility], [address] [facility], [address] [place] [address], [address] [place] [address], Booster Operator: Gopal Hamilton MD [facility] Collection Date/Time: [facility] Results Received Date/Time: [facility] Reported Date/Time: Result Comment: For patients with diabetes plus 1 major ASCVD risk factor, treating to a non-HDL-C goal of <100 mg/dL (LDL-C of <70 mg/dL) is considered a therapeutic option. Performed By: #### 9 68T, 29925I, %8293, 33079O, 6399, 496X #### [facility] Default [address] [place] [address] Triglyceride [Mass/Vol] 410 mg/dL High <150 [facility] Repair Department Supervisor Comment on above: Order Comment: [facility] Testing performed at: [facility], [facility] [facility], [address] [facility], [address] [place] [address], [address] [place] [address], Booster Operator: Gopal Hamilton MD [facility] Collection Date/Time: [facility] Results Received Date/Time: [facility] Reported Date/Time: Result Comment: If a non-fasting specimen was collected, consider repeat triglyceride testing on a fasting specimen if clinically indicated. João et al. J. of Clin. Lipidol. 2015;9:129-169. Performed By: #### 9 68T, 95843B, %8293, 91458F, 6399, 496X #### [facility] Default [address] [place] [address] Q - TROPONIN Ion 03-10-2022 TROPONIN I 3 ng/L Normal < OR = 47 [facility] Repair Department Supervisor Comment on above: Order Comment: [facility] Testing performed at: [facility], [facility] [facility], [address] [facility], [address] [place] [address], [id number], Booster Operator: Gopal Hamilton MD [facility] Collection Date/Time: [facility] Results Received Date/Time: [facility] Reported Date/Time: Result Comment: In accord with published recommendations, serial testing of troponin I at intervals of 2 to 4 hours for up to 12 to 24 hours is suggested in order to corroborate a single troponin I result. An elevated troponin alone is not sufficient to make the diagnosis of IA. Performed By: #### 9 68T, 52467X, %8293, 18071A, 6399, 496X #### [facility] Default [address] [place] [address] UA DIP, URINE (POC)on 2021 BILIRUBIN UA (POCT) Negative Negative [facility] CLARITY UA (POCT) Clear [facility] COLOR UA (POCT) Yellow [facility] GLUCOSE UA (POCT) Negative Negative mg/dL [facility] HEMOGLOBIN/BLOOD UA (POCT) Negative Negative [facility] KETONE UA (POCT) Negative Negative mg/dL [facility] LEUKOCYTES UA (POCT) Negative Negative [facility] NITRITE UA (POCT) Negative Negative [facility] PH UA (POCT) 5.0 4.5 - 8.0 [facility] Protein Ql (U) Trace Abnormal Negative mg/dL [facility] SPECIFIC GRAVITY UA (POCT) >=1.030 1.005 - 1.030 [facility] UROBILINOGEN UA (POCT) 0.2 E.U./dL Brenda l E.U./dL [facility] CNTHERAPYon 01-31-2022 CNTHERAPY OT/PT/Speech Visit (PTLHO) ----- MARY LEAL ([id number]) 1970 F Date Time Provider Department 01/31/22 10:30 AM NEWTON WOODWARD PTLHO Date Time Provider Department [place] 01/31/2022 10:30 AM [id number], JILL [facility] Reason for Visit: Physical Therapy [503] [...] (FLONASE) 50 mcg/actuation nasal spray Use 1 [place] in each nostril once daily. - carBAMazepine [...] by mouth every morning BEFORE BREAKFAST - qmpxerioite-ycphqoojf-ztj anter (TRELEGY ELLIPTA) 100-62.5-25 mcg Inhale 1 Puff as instructed once daily. - atenolol (TENORMIN) 50 mg tablet Take 50 mg by mouth once daily. ----- [facility] CNTHERAPYon 01-24-2022 CNTHERAPY OT/PT/Speech Visit (PTLHO) ----- MARY LEAL ([id number]) 1970 F Date Time Provider Department 01/24/22 10:30 AM NEWTON WOODWARD PTKALEIGH Date Time Provider Department Center 01/24/2022 10:30 AM [id number], JILL [facility]VANNA[facility] Reason for Visit: Physical Therapy [503] [...] (FLONASE) 50 mcg/actuation nasal spray Use 1 [place] in each nostril once daily. - carBAMazepine [...] by mouth every morning BEFORE BREAKFAST - nxqeshptbpy-wyadwcata-dcx anter (TRELEGY ELLIPTA) 100-62.5-25 mcg Inhale 1 Puff as instructed once daily. - atenolol (TENORMIN) 50 mg tablet Take 50 mg by mouth once daily. ----- [facility] CNTHERAPYon 01-18-2022 CNTHERAPY OT/PT/Speech Visit (PTLHO) ----- MARY LEAL ([id number]) 1970 F Date Time Provider Department 01/18/22 12:15 PM [facility] Provider Department [place] 01/18/2022 12:15 PM [id number][facility]: [facility] Eval [747] Primary [...] (FLONASE) 50 mcg/actuation nasal spray Use 1 [place] in each nostril once daily. - carBAMazepine [...] by mouth every morning BEFORE BREAKFAST - gldhcqflmer-lkxtfjprb-ywu anter (TRELEGY ELLIPTA) 100-62.5-25 mcg Inhale 1 Puff as instructed once daily. - atenolol (TENORMIN) 50 mg tablet Take 50 mg by mouth once daily. ----- [facility] HNO ID: [id number] Author: Sonido Owen MD Service: Colorectal Author Type: Resident Type: Discharge Summary Filed: 12/27/2021 3:55 PM Note Text: ----- Attestation signed by Mary Obrien MD at 12/29/2021 4:11 PM [facility] NOTE OF PERSONAL INVOLVEMENT IN [...] PACU and was transferred to the [facility]. Postoperatively, the patient recovered well. Her diet [...] 50 mg Finesse (more content not included)... [facility] CONSULTon 12-27-2021 CONSULT HNO ID: [id number] Author: Trini Hines RN Service: Wound/Ostomy Author Type: Registered Nurse Type: Consults Filed: 12/27/2021 3:32 PM Note Text: STOMA CARE POST-OPERATIVE ASSESSMENT AND PATIENT EDUCATION Patient Name: Mary Leal Date: December 27, 2021 Time: 3:20 PM ET Care Outcome: Ms. Leal was seen today on the [facility] for ostomy education and a pouch change lesson. ET's Next Scheduled Visit: Complete. STOMA ASSESSMENT Stoma type: Loop ileostomy Diameter: 35 mm with and extra 1 mm cut on the medial side of the pouch. Location: RLQ Protrusion: Budded, Os points downward Mucosal condition and color: Red and [place] and moist. Boni: No Mucocutaneous Junction: Intact [...] one piece cut to fit drainable pouch (#[id number]) and Coloplast Brava moldable ring (2mm) #[id number]. Brava barrier strips, product # [id number] applied around the border of the pouch. INCISION Degree of approximation: 100% Approximating devices: Surgical Glue Drainage: None Method of Management: MANAGER HARBOR Time Increment: 45 minutes Comments: NA Supplies [...] Referral Recommendation: Home Health Agency SIGNATURE: Trini HENSON RN NIKOLEN DANK This is an electronically created document. IF PRINTED, PLEASE DO NOT REMOVE FROM THE CHART OR MODIFY PRINTED COPY. [facility] NURSING PROGon 12-27-2021 NURSING PROG HNO ID: [id number] Author: Marizol Hankins RN Service: ? Author Type: Registered Nurse Type: Nursing Progress Note Filed: 12/27/2021 4:39 PM Note Text: Nursing Progress Note Patient Name: Mary Leal [facility]3C33/-YZ7M-24 Daily Note: Pt AANDO x 3. Lap [...] This note was completed by: Marizol Hankins [facility] NUTRITIONon 12-27-2021 NUTRITION HNO ID: [id number] Author: Merced Morales DTR Service: Nutrition Therapy Author Type: Senior Office Assistant Type: Nutrition Filed: 12/27/2021 12:16 PM Note Text: NUTRITION THERAPY JAIL OFFICER NOTE SERVICE DATE: 12/27/2021 SERVICE TIME: 10:00 [...] DATE: December 27, 2021 TIME: 12:15 PM [facility] PT EDon 12-27-2021 PT ED HNO ID: [id number] Author: Merced Morales DTR Service: Nutrition Therapy Author Type: Senior Office Assistant Type: Patient Education Filed: 12/27/2021 12:16 PM [...] 27, 2021 TIME: 12:16 PM PAGER: Normal [facility] Basic Metabolic Panlon 12-26 Anion gap [Moles/Vol] 9 mmol/L Normal 9-18 [facility] Comment on above: Performed By: #### B MP #### [place] [phone] Calcium [Mass/Vol] 8.5 mg/dL Normal 8.5-10.5 [facility] Comment on above: Performed By: #### B MP #### [place] [address] Chloride [Moles/Vol] 102 mmol/L Normal 98-110 [facility] Comment on above: Performed By: #### B MP #### [place] [address] CO2 [Moles/Vol] 28 mmol/L Normal 23-32 [facility] Comment on above: Performed By: #### B MP #### [place] [address] Creatinine [Mass/Vol] 0.62 mg/dL Low 0.70-1.40 [facility] Comment on above: Performed By: #### B MP #### [place] [address] eGFR- Amer. >60 Normal >59 [facility] Comment on above: Performed By: #### B MP #### [place] [phone] eGFR-All Other Races >60 Normal >59 [facility] Comment on above: Result Comment: eGFR [...] [email or web address]. Performed By: #### B MP #### [place] [phone] Glucose [Mass/Vol] 71 mg/dL Normal 65-100 [facility] Comment on above: Performed By: #### B MP #### [place] [phone] Potassium [Moles/Vol] 4.0 mmol/L Normal 3.5-5.0 [facility] Comment on above: Performed By: #### B MP #### [address] [place] [address] Sodium [Moles/Vol] 139 mmol/L Normal 132-148 [facility] Comment on above: Performed By: #### B MP #### [place] [address] Urea nitrogen [Mass/Vol] 10 mg/dL Normal 8-25 [facility] Comment on above: Performed By: #### B MP #### [place] [phone] NURSING PROGon 12-26-2021 NURSING PROG HNO ID: [id number] Author: Juan Crowley RN Service: Nursing Author Type: Registered Nurse Type: Nursing Progress Note Filed: 12/26/2021 5:25 PM Note Text: Nursing Progress Note Patient Name: Mary Leal Patient Location: [place] [address]/[place] [address] Daily Note: Call discontinued as directed in orders. 700cc output from call. 250cc NS instilled and then call catheter removed. Patient assisted to BSC and voided 200cc pink tinged urine. Patient assisted back to bed, not wanting to go to chair. Call light in reach. This note was completed by: Juan Crowley [facility] NURSING PROG HNO ID: [id number] Author: Juan Crowley RN Service: Nursing Author Type: Registered Nurse Type: Nursing Progress Note Filed: 12/26/2021 3:51 PM Note Text: Nursing Progress Note Patient Name: Mary Leal Patient Location: [place] [address]/[address] Daily Note: Patient AANDOx3. VSS. 2L NC POx. IVF infusing as ordered. Dilaudid STAVE BOLT EQUALIZER, OXY IR on for pain. Patient drowsy yet easily arousable. Lap sites and transverse incision MANAGER HARBOR with glue. Ileostomy draining liquid brown. Call draining clear yellow. PAS on. No edema. Fa,saman at bed side. Call light in reach. This note was completed by: Juan Crowley Normal [facility] Basic Metabolic Panlon 12-25 Anion gap [Moles/Vol] 9 mmol/L Normal 9-18 [facility] Comment on above: Performed By: #### B MP #### [place] [phone] Calcium [Mass/Vol] 8.5 mg/dL Normal 8.5-10.5 [facility] Comment on above: Performed By: #### B MP #### [address] Chloride [Moles/Vol] 104 mmol/L Normal 98-110 [facility] Comment on above: Performed By: #### B MP #### [place] [phone] CO2 [Moles/Vol] 28 mmol/L Normal 23-32 [facility] Comment on above: Performed By: #### B MP #### [place] [phone] Creatinine [Mass/Vol] 0.72 mg/dL Normal 0.70-1.40 [facility] Comment on above: Performed By: #### B MP #### [place] [phone] eGFR- Amer. >60 Normal >59 [facility] Comment on above: Performed By: #### B MP #### [place] [phone] eGFR-All Other Races >60 Normal >59 [facility] Comment on above: Result Comment: eGFR [...] [email or web address]. Performed By: #### B MP #### [place] [phone] Glucose [Mass/Vol] 91 mg/dL Normal 65-100 [facility] Comment on above: Performed By: #### B MP #### [place] [phone] Potassium [Moles/Vol] 4.0 mmol/L Normal 3.5-5.0 [facility] Comment on above: Performed By: #### B MP #### [phone] Sodium [Moles/Vol] 141 mmol/L Normal 132-148 [facility] Comment on above: Performed By: #### B MP #### [place] [phone] Urea nitrogen [Mass/Vol] 12 mg/dL Normal 8-25 [facility] Comment on above: Performed By: #### B MP #### [place] [phone] CASE MGT INIT ASSESon 2021 CASE MGT INIT ASSES HNO ID: [id number] Author: TITO Whitt Service: ? Author Type: Business Support Associate Type: Care Mgt Initial Assessment Filed: 12/25/2021 11:43 AM Note Text: CARE MANAGEMENT: ASSESSMENT AND DISCHARGE PLAN SERVICE DATE: December 25, 2021 SERVICE TIME: 11:39 AM PRIMARY CARE PHYSICIAN: Eliceo Willams DO ADMISSION STATUS: Inpatient Needs Prior to Discharge: Facility or Agency Choices;Home Care Order MEDICAL: PARAMOUNT ADVANTAGE MEDICAID Patient/[place] Stated Goals: To have reduction in symptoms Health Insurance: [place] Health Issues Impacting Discharge Plan: None Last Discharge Date: 10/14/20 Is this Within the Past 30 days? Last discharge within 30 days: No Advance Directive: Current Advance Directive: Health Care Power of Social Media Assistant In Chart: No Health LiteracyHow often do [...] None Has the Patient Been in a Assisted Facility in the Past 30 days?: No [...] Completely I feel financially burdened by my yrr-uy-zebdwb expenses for my prescription medication:: 0 - Disagree Completely Risk Score: 0 Patient is categorized as: Low risk < 2 Are you interested in bedside delivery of your medications? Yes Is Patient Psychosocially Complex?: No ASSESSMENT AND PLAN: Medical Needs: Medical Needs: None Psychosocial Needs: Psychosocial Needs: None FREEDOM OF CHOICE EXPLAINED: [place] of Choice Given: Yes Level of Care Discussed: Home Care Financial Disclosure Provided: Yes Financial Disclosure Comments: careport Provider List: Home Care Provider list within the patient's requested geographic area shared with the patient/family: Yes within: 15 miles of zip code: [address] Quality and resource use metrics shared with [...] bedside with pt during assessment. Charo Obando [phone]. Home care referrals sent. Daughter to transport at time of discharge. SIGNATURE: TITO Whitt PATIENT NAME: Mary Leal DATE: December 25, 2021 TIME: 11:39 AM PAGER/CONTACT #: [phone] Normal [facility] CBC and Differentialon 12-25 Abs Baso 0.03 k/uL Normal <0.11 [facility] Comment on above: Performed By: #### 5 7021-8 #### [facility] CLIA [id number] [address] [place] [address] [place] Abs [place] 0.45 k/uL Normal <0.87 [facility] Comment on above: Performed By: #### 5 7021-8 #### [facility] CLIA [id number] [place] [address] [place] Abs Neut 3.85 k/uL Normal 1.45-7.50 [facility] Comment on above: Performed By: #### 5 7021-8 #### [facility] CLIA [id number] [place] [address] [place] Absolute nRBC <0.01 Normal <0.01 [facility] Comment on above: Performed By: #### 5 7021-8 #### [facility] CLIA [id number] [address] [place] [address] [place] Basophils/100 WBC (Bld) 0.5 % Normal [facility] Comment on above: Performed By: #### 5 7021-8 #### [facility] CLIA [id number] [address] [place] [address] [place] DTYPE Auto Diff Normal [facility] Comment on above: Performed By: #### 5 7021-8 #### [facility] CLIA [id number] [address] [place] [address] [place] Eosinophils (Bld) [#/Vol] 0.14 10*3/uL Normal <0.46 [facility] Comment on above: Performed By: #### 5 7021-8 #### [facility] CLIA [id number] [address] [place] [address] [place] Eosinophils/100 WBC (Bld) 2.3 % Normal [facility] Comment on above: Performed By: #### 5 7021-8 #### [facility] CLIA [id number] [address] [place] [address] Erythrocyte distribution width (RBC) [Ratio] 11.6 % Normal 11.5-15.0 [facility] Comment on above: Performed By: #### 5 7021-8 #### [facility] CLIA [id number] [address] [place] [address] [place] Hematocrit (Bld) [Volume fraction] 35.2 % Low 36.0-46.0 [facility] Comment on above: Performed By: #### 5 7021-8 #### [facility] CLIA [id number] [address] [place] [address] [place] Hemoglobin (Bld) [Mass/Vol] 11.6 g/dL Normal 11.5-15.5 [facility] Comment on above: Performed By: #### 5 7021-8 #### [facility] CLIA [id number] [place] [address] [place] Lymphocytes (Bld) [#/Vol] 1.47 10*3/uL Normal 1.00-4.00 [facility] Comment on above: Performed By: #### 5 7021-8 #### [facility] CLIA [id number] [place] [address] [place] Lymphocytes/100 WBC (Bld) 24.7 % Normal [facility] Comment on above: Performed By: #### 5 7021-8 #### [facility] CLIA [id number] [address] [place] [address] [place] MCH 29.5 pG Normal 26.0-34.0 [facility] Comment on above: Performed By: #### 5 7021-8 #### [facility] CLIA [id number] [address] [place] [address] [place] MCHC (RBC) [Mass/Vol] 33.0 g/dL Normal 30.5-36.0 [facility] Comment on above: Performed By: #### 5 7021-8 #### [facility] CLIA [id number] [address] [place] [address] [place] MCV (RBC) [Entitic vol] 89.6 fL Normal 80.0-100.0 [facility] Comment on above: Performed By: #### 5 7021-8 #### [facility] CLIA [id number] [address] [place] [address] [place] Monocytes/100 WBC (Bld) 7.6 % Normal [facility] Comment on above: Performed By: #### 5 7021-8 #### [facility] CLIA [id number] [address] [place] [address] [place] Neutrophils/100 WBC (Bld) 64.9 % Normal [facility] Comment on above: Performed By: #### 5 7021-8 #### [facility] CLIA [id number] [address] [place] [address] [place] NRBCs 0.0 /100 WBC Normal 0 [facility] Comment on above: Performed By: #### 5 7021-8 #### [facility] CLIA [id number] [address] [place] [address] [place] Platelet mean volume (Bld) [Entitic vol] 9.0 fL Normal 9.0-12.7 [facility] Comment on above: Performed By: #### 5 7021-8 #### [facility] CLIA [id number] [address] [place] [address] [place] Platelets (Bld) [#/Vol] 271 10*3/uL Normal 150-400 [facility] Comment on above: Performed By: #### 5 7021-8 #### [facility] CLIA [id number] [address] [place] [address] [place] RBC (Bld) [#/Vol] 3.93 10*6/uL Normal 3.90-5.20 [facility] Comment on above: Performed By: #### 5 7021-8 #### [facility] CLIA [id number] [address] [place] [address] [place] WBC (Bld) [#/Vol] 5.96 10*3/uL Normal 3.70-11.00 [facility] Comment on above: Performed By: #### 5 7021-8 #### [facility] CLIA [id number] [address] [place] [address] CONSULTon 12-25-2021 CONSULT HNO ID: [id number] Author: Tri Kowalski APRN.TUB OPERATOR Service: Wound/Ostomy Author Type: Nurse Practitioner Type: Consults Filed: 12/25/2021 11:37 AM Note Text: OSTOMY SERVICE CONSULT [employer] SERVICE DATE: 12/25/2021 SERVICE TIME: 1015 Consultation [...] mL 20 mEq INTRAVENOUS PRN - HYDROmorphone STAVE BOLT EQUALIZER 0.5 mg/mL in NaCl 0.9% 100 mL [...] discharge with h (more content not included)... [facility] NURSING PROGon 12-25-2021 NURSING PROG HNO ID: [id number] Author: Marilyn Henning RN Service: ? Author Type: Registered Nurse Type: Nursing Progress Note Filed: 12/25/2021 7:01 PM Note Text: Nursing Progress Note Patient Name: Mary Leal Patient Location: [address]/ Daily Note: 0930 Pt AANDOx3. Lap sites intact. ABD tender. STAVE BOLT EQUALIZER pump running. Stoma beefy red, dark brown liquid output. Pt stated that the eye pressure felt overnite has resolved. Call remains in place until OBGYN sees pt 12/26. Pt requesting PO pain medication. 1100 Pt up to chair. [address] Ontiveros bedside. 5mg oxy ordered q4 PRN. This note was completed by: Marilyn Henning [facility] NURSING PROG HNO ID: [id number] Author: Annette Ford RN Service: ? Author Type: Registered Nurse Type: Nursing Progress Note Filed: 12/25/2021 6:12 AM Note Text: Nursing Progress Note Patient Name: Mary Leal Patient Location: [place] [address]/WN9Q-[id number] Daily Note: Pt has been complaining of [...] This note was completed by: Annette Ford [facility] ANES POSTPROC EVALon 022 ANES POSTPROC EVAL HNO ID: [id number] Author: Charisse Aggarwal MD Service: Anesthesiology Author Type: Anesthesiologist Type: Anesthesia Postprocedure Evaluation Filed: 12/24/2021 4:17 PM Note Text: POST ANESTHESIA EVALUATION NOTE : 1970 Procedure Summary Date: 12/24/21 Room / Location: [place] [address] / OR Anesthesia Start: 810 Anesthesia Stop: [...] December 24, 2021 TIME: 4:17 PM CSN: [id number] [facility] ANES PRE-OPon 12-24-2021 ANES PRE-OP HNO ID: [id number] Author: Chayito Ojeda MD Service: Anesthesiology Author [...] 11pm the evening prior to surgery. - uodkdwjells-kispzsfny-uju anter (TRELEGY ELLIPTA) 100-62.5-25 mcg Inhale 1 [...] December 24, 2021 TIME: 7:27 AM CSN: [id number] [facility] BRIEF OP NOTon 12-24-2021 BRIEF OP NOT HNO ID: [id number] Author: Jenifer Ayala MD Service: Colorectal Author Type: Fellow Type: Brief Op Note Filed: 12/24/2021 12:16 PM Note Text: BRIEF OPERATIVE NOTE - COLORECTAL SURGERY Log ID: [id number] Surgery/Procedure Date: 12/24/2021 Incision/Procedure Start Time: 8:50 AM Incision Close/Procedure End Time: Surgeon(s) and Insulation Extruder Operator(s): Surgeon(s) and Role: Panel 1: * [...] DATE: December 24, 2021 TIME: 12:10 PM Normal [facility] NURSING PROGon 12-24-2021 NURSING PROG HNO ID: [id number] Author: Marilyn Henning RN Service: ? Author Type: Registered Nurse Type: Nursing Progress Note Filed: 12/24/2021 6:36 PM Note Text: Nursing Progress Note Patient Name: Mary Leal Patient Location: [facility]3C33/-AN3T-31 Daily Note: 1815 Pt arrived on floor with 100.2F temperature. Scheduled tylenol administered. Temperature 98.6 at 1816. Surgical incisions MANAGER HARBOR with glue, intact. Ostomy beefy red, producing sweat. Call remains in place. Pt Educated on STAVE BOLT EQUALIZER pump usage. Daughter bedside. Bed low and locked. This note was completed by: [facility] ID: [id number] Author: Marilyn Henning RN Service: ? Author Type: Registered Nurse Type: Nursing Progress Note Filed: 12/24/2021 4:19 PM Note Text: Nursing Progress Note Patient Name: Mary Leal Patient Location: [place] [address] [address] Transfer Note: Patient transferred into room/unit [facility] in stable condition. Actions taken: No futher actions taken at this time. Will continue to monitor and check with patient. This note was completed by: Marilyn [facility] NURSING PROG HNO ID: [id number] Author: Dianelys Lopez RN Service: Nursing Author Type: Registered Nurse Type: Nursing Progress Note Filed: 12/24/2021 6:30 AM Note Text: PATIENT EDUCATION TOPIC: PROCEDURE / SURGERY: Pre-op Teaching: Protocols PATIENT NAME: Mary Leal PAT[place]ATION[place] TO LEARN COGNITIVE ABILITY: Alert and [...] (RECOMMENDATION): None Electronically Signed By: Dianelys Lopez [facility] OPERATIVE NOon 12-24-2021 OPERATIVE NO HNO ID: [id number] Author: Mary Obrien MD Service: Colorectal Author Type: Physician Type: Operative Report Filed: 12/24/2021 12:34 PM Note Text: COLON AND RECTAL SURGERY OPERATIVE REPORT PATIENT NAME: Mary Leal ADMISSION DATE: 12/24/2021 LOG ID: [id number] SURGERY/PROCEDURE DATE: 12/24/2021 INCISION/PROCEDURE START TIME: 8:50 AM INCISION CLOSE/PROCEDURE END TIME: AGE: [age] year old SEX: female SURGEON(S)/PROCEDURALIST( S) AND HELPER ELECTRICAL(S): Surgeon(s) and Role: Panel 1: * Mary [...] port site. This was ligated with a mwlcov-qu-mdphs Vicryl suture and was confirmed to be [...] Mary Obrien, (more content not included)... Normal [facility] OPERATIVE NO HNO ID: [id number] Author: Pam Wang MD Service: Urogynecology Author Type: Physician Type: Operative Report Filed: 12/28/2021 10:03 AM Note Text: OPERATIVE/PROCEDURE REPORT LOG ID: [id number] SURGERY/PROCEDURE DATE: 12/24/2021 INCISION/PROCEDURE START TIME: 8:50 AM INCISION CLOSE/PROCEDURE END TIME: 1:50 PM SURGEON(S)/PROCEDURALIST( S) AND HELPER ELECTRICAL(S): Surgeon(s) and Role: Panel 1: * Mary [...] of the (more content not included)... Normal [facility] Type and SCR (30D)on 022 ABO/RH(D) Positive [facility] Comment on above: Performed By: #### T SCR30 ####[place] [id number] Confirm Blood Typeon 021 ABO/RH(D) Positive [facility] Comment on above: Performed By: #### C ONABO ####[place] [id number] Type and SCR (30D)on 021 ABO/RH(D) Positive [facility] Comment on above: Performed By: #### T SCR30 ####[place] [id number] Nonvisit Note - PTon Nonvisit Note - PT Chart reviewed with eval prepped for scheduled eval. KK [facility] [place] 01-08-2021 Consent [id number]:1 27 [facility] Coding Summary.on 01-06-2021 Coding Summary. CODING DATE: [facility] STATUS: Home (Routine DC) PAYOR: Medicaid [facility] HOSPITAL DESCRIPTION 0439 CLASS V PHARMACOTHERAPY ADMIT DX: [...] Eileen Scott Date Saved: 01/06/2021 09:01 am [facility] Consent for Procedure/Surger yon 01-04-2021 Consent for Procedure/Surgery [id number]#1.00CD:1 27 [facility] Consent for Procedure/Surgery [id number]#1.00CD:1 27 [facility] Consent for Treatmenton Consent for Treatment [id number]#1.00CD:12 7 [facility] Discharge Instructionson Discharge Instructions [id number]#1.00CD:1 27 [facility] Inpatient Patient Summaryon 01-04-2021 Inpatient Patient Summary [place] [address] Clinical Summary Person Information Name: MARY LEAL Age: 50 Years : 1970 Sex: Female PCP: Isatu WILLAMS DO Marital Status: Race: White Ethnicity: Non- or Language: Tunisian Visit Id: Visit Reason: MIXED INCONTINENCE Speciality: Acuity: Enc Type: Outpatient Med Service: Surgery Arrival: 01/04/2021 12:31:00 Discharge: Dispo Type: Address: [address] [place] [phone] Provider Notes: Diagnosis: Problems Active Decreased bladder [...] Documented This Visit Final Med List: acetaminophen-hydrocodone (Bard 5/325 Tab) By Mouth every 6 hours. [...] Follow up: With: Address: When: Clifford OCONNOR [address] [place] [address], [address], [place] [address] [facility] (1) Within 2 weeks Comments: Call for followup appointment. Have a great day! Patient Education Information: EU - Cystoscopy with Botox Injection Discharge Instructions (Custom) [facility] IntraOperative Documentson 0 01-04-2021 IntraOperative Documents [id number]#1.00CD:1 27 [facility] IntraOperative Documents [id number]#1.00CD:1 27 [facility] Main OR Intraoperative Recor don 01-04-2021 Main OR Intraoperative Record IntraOp Document Type FTURO Summary Primary Physician: Clifford OCONNOR MD Finalized Date/Time: 01/04/21 13:27:05 Pt. Name: MARY LEAL /Sex: 1970 Female Med Rec #: [id number] Physician: Clifford OCONNOR MD Financial #: [id number] Pt. Type: O Room/Bed: / Admit/Disch: 01/04/21 12:31:00 - Institution: Case Times FTURO Entry 1 Patient Times In Room 01/04/21 13:07:00 Out Room 01/04/21 13:27:00 Procedure Times Start 01/04/21 13:19:00 Stop 01/04/21 13:23:00 Anesthesia Times Last Modified By: Niecy Tran RN 01/04/21 13:27:01 Case Attendance FTURO Entry 1 Entry 2 Entry 3 Case Attendee Clifford OCONNOR MD [employer] PAPER COATING MACHINE SETTER, Akin Mejias CARBON PAPER COATING MACHINE SETTER, Debi Chand Role Performed Surgeon - Primary [...] Case Attendee Niecy Tran RN Role Performed Recyclable Products Sorter - Primary Time In 01/04/21 13:07:00 Time Out 01/04/21 13:27:00 Procedure CYSTOSCOPY LOCAL BOTOX INJECTION(.) Comments Last Modified By: Niecy Tran RN 01/04/21 13:27:02 Surgical Procedures FTURO Entry 1 Procedure Description Procedure CYSTOSCOPY LOCAL BOTOX Modifiers . INJECTION Surgeon Description CYSTOSCOPY BOTOX 50 UNITS LOT NUMBER [id number] EXP DATE 08/2023 Primary Procedure Yes Primary [...] Akin Dalton CST, Applicable) Debi Mejias CST, Barbee RN, Kimberly [...] By: Niecy Tran RN 01/04/21 13:27 [facility] Main OR Preoperative Recordo n 01-04-2021 Main OR Preoperative Record Holding Area Document Type FTURO Summary Primary Physician: Clifford OCONNOR MD Finalized Date/Time: 01/04/21 13:05:55 Pt. Name: MARY LEAL Zoya /Sex: 1970 Female Med Rec #: [id number] Physician: Clifford OCONNOR MD Financial #: [id number] Pt. Type: O Room/Bed: / Admit/Disch: 01/04/21 [...] 12:46 Niecy Tran RN 01/04/21 13:05 [facility] Operative Reporton Operative Report Patient: ERNESTO LEAL Age: 50 years Sex: Female : 1970 Associated Diagnoses: None Author: ANASTASIA BENSON, Clifford Bailey Procedure Operative Information Details: Date/ Time: 01/04/2021 [...] arranged, F/U in two weeks. . [facility] Comment on above: Result Comment: Elec tronically Signed By: Clifford OCONNOR MD\.br\Date and Time Signed: 01/04/21 13:30 EST Outpatient Surgery Discharge Instructionon 01-04-2021 Outpatient Surgery Discharge Instruction [address] [address] Patient Discharge Instructions PERSON INFORMATION [...] Follow up: With: Address: When: Clifford OCONNOR [address] [place] [address], [address], [place] [phone] Business (1) Within 2 weeks Comments: Call [...] Date You may receive a survey from [employer] asking you to rate your care experience. Your feedback is important and will help us understand what we do well and how we can improve the quality of care we provide to you, your loved ones and our community. It?s an honor to serve you. Thank you for choosing [facility] PT - Assessmentson 1 PT - Assessments [id number]#1.00CD:1 [facility] Ambulatory Clinical Summaryo n 11-11-2020 Ambulatory Clinical Summary {[id number]-m7-c9-f1}C D:[id number] [facility] Patient Educationon 11-11-19 21 Patient Education Family [...] your urinary (more content not included)... [facility] Urology Phone Visit- [facility] 11-03-2020 Urology Phone Visit- Telehealth HPI Staff [...] only communication with the patient located at [facility] [place] [phone] , with no one else. If it [...] With When Contact Information Francie BENSON, Dawna Keys. [address] [place] [address] [place] [address]- [phone] Additional Instructions: Patient Education Urodynamic Testing Overactive [...] stream His (more content not included)... [facility] Comment on above: Result Comment: Elec tronically Signed By: Dawna Marmolejo MD\.br\Date and Time Signed: 11/03/20 11:59 EST\.br\Electronically Co-Signed By: Christy Gill MA\.br\Date and Time Co-Signed: 10/21/20 12:01 EST Coding Summary.on 10-28-2020 Coding Summary. CODING DATE: 020 FINAL [facility] STATUS: Home (Routine [place]) PAYOR: Medicaid EAPG [...] Eileen Scott Date Saved: 10/28/2020 11:17 am [facility] Ambulatory Clinical Summaryo n 10-27-2020 Ambulatory Clinical Summary {[id number]-n5-b6-44-26-25-c6-e5}C D:[id number] [facility] Consent for Procedure/Surger yon 10-27-2020 Consent for Procedure/Surgery [id number]#1.00CD: 127 [facility] Consent for Treatmenton 10-07 Consent for Treatment [id number]#1.00CD:12 7 [facility] IntraOperative Documentson 1 12-28-2019 IntraOperative Documents [id number]#1.00CD: 127 [facility] Patient Educationon 10-21-20 Patient Education Family Medicine [...] lab or depar (more content not included)... [facility] PT - Assessmentson 0 PT - Assessments [id number]#1.00CD:1 27 [facility] Nonvisit Note - PTon 020 Nonvisit Note - PT Per voicemail: she n eeds to cancel all of her PT due to personal reasons. KK [facility] Provider Letteron 09-09-2020 Provider Letter (Inserted Image. Jessica ble to display) September 09, 2020 MARY LEAL [address] [place] [address] MARY LEAL 1970 Dear Mary Leal, You [...] appreciate your understanding. Sincerely, [facility] [address], [place] [address] [facility] PT - Assessmentson 0 PT - Assessments [id number]#1.00CD:1 27 [facility] PT - Assessments [id number]#1.00CD:1 27 [facility] PT - Assessmentson 0 PT - Assessments [id number]#1.00CD:1 27 [facility] PT - Consentson 08-31-2020 PT - Consents [id number]#1.00CD:1 27 [facility] Pre-Certification Formon Pre-Certification Form [id number]#1.00CD:12 7 [facility] Pre-Certification Form [id number]#1.00CD:12 7 [facility] Consent for Procedure/Surger yon 08-26-2020 Consent for Procedure/Surgery [id number]#1.00CD:12 7 [facility] Ambulatory Clinical Summaryo n 08-25-2020 Ambulatory Clinical Summary {[id number]- 92-in-2g-64-36-i2-7d-25}C D:[id number] [facility] Patient Educationon 10-20-20 20 Patient Education Family Medicine Interstitial Cystitis Interstitial [...] an extended amount of time. Only take ydhn-sqk-utfjpxc or prescription medicines for pain, discomfort, or [...] Document Reviewed: 09/07/2009 ExitCare? Patient Information ?2013 [employer]. [facility] Urology Office/Clinic Noteon 08-25-2020 Urology Office/Clinic Note [...] urinary stream) Follow-up With When Contact Information Francie BENSON, Dawna Feldman In 3 months Additional Instructions: Patient Education Interstitial Cystitis Mary Gloria, personally scribed for Dr. Marmolejo on 08/25/2020 09:51:24. . Documentation recorded by the Mary vaz, accurately reflects the services(s) I performed [...] Alzheimer's disease: Mother. Hypertension: Mother and Father. [facility] Comment on above: Result Comment: Elec tronically Signed By: Francie BENSON, Dawna Feldman\.br\Date and Time Signed: 08/25/20 10:06 EDT\.br\Electronically Co-Signed By: Mary Hager\.br\Date and Time Co-Signed: 08/25/20 09:51 EDT Coding Summary.on 08-21-2020 Coding Summary. CODING DATE: FINAL [facility] STATUS: PAYOR: Medicaid EA DESCRIPTION 0271 PHYSICAL [...] Raymond CphT Date Saved: 08/21/2020 10:42 am [facility] Consenton 08-21-2020 Consent [id number]#1.00CD:12 7 [facility] Ambulatory Clinical Summaryo n 08-19-2020 Ambulatory Clinical Summary {[id number] 40-09-97-0p-f6-m3-c8-73}C D:[id number] [facility] Ambulatory Clinical Summary {[id number]-[id number]-[id number]-j8-0d-3c}C D:[id number] [facility] Nonvisit Note - PTon Nonvisit Note - PT Chart reviewed for scheduled eval. KK [facility] Patient Educationon 08-19-20 20 Patient Education Family [...] your urinary (more content not included)... [facility] Urology Phone Visit- Telehea lthon 08-19-2020 Urology Phone Visit- Telehealth Chief Complaint [...] only communication with the patient located at [facility] [phone], with no one else. If it is [...] questions/concerns were discussed. Pt. acknowledges understanding. Ordered: [facility] External Ambulatory Referral Urology Procedure Order 2. Dysuria (R30.0: Dysuria) Moderate. Ordered: [facility] External Ambulatory Referral Urology Procedure Order 3. Feeling of incomplete bladder emptying (R39.14: Feeling of incomplete bladder emptying) Pt. does not feel that she is emptying. Ordered: [facility] External Ambulatory Referral Urology Procedure Order 4. Weak urine stream (R39.12: Poor urinary stream) Weak stream w/ moderate hesitancy. Ordered: [facility] External Ambulatory Referral Urology Procedure Order 5. [...] Will order Local anesthesia. ABX sent to [facility] in [place]. Ordered: [facility] External Ambulatory Referral Urology Procedure Order 6. [...] Patient who (more content not included)... [facility] Comment on above: Result Comment: Elec tronically Signed By: Francie BENSON, Dawna Feldman\.br\Date and Time Signed: 08/19/20 08:53 EDT\.br\Electronically Co-Signed By: Christy Gill MA\.br\Date and Time Co-Signed: 08/19/20 08:44 EDT Coding Summary.on 08-12-2020 Coding Summary. CODING DATE: 020 FINAL [facility] STATUS: Home (Routine [place]) PAYOR: Medicaid EAPG DESCRIPTION 0396 LEVEL I [...] Demi Fried Date Saved: 08/12/2020 09:42 am [facility] Formson 08-11-2020 Forms [id number]#1.00CD:12 7 [facility] C Urineon 08-09-2020 Bacteria identified Cx Nom (U) Microbiology PROCEDURE: Urine Culture [R1] SOURCE: U Random BODY SITE: COLLECTED DATE/TIME: 08/07/2020 15:46 EDT RECEIVED DATE/TIME: 08/07/2020 17:10 EDT START DATE/TIME: 08/07/2020 17:10 EDT FREE TEXT SOURCE: Dawna Marmolejo MD, MD, Daniel D. FINAL REPORTS Final Report [] Verified Date/Time: 08/09/2020 11:56 EDT 500 cfu/ml Mixed skin contaminants Performing Locations R1: This test was performed at: [facility], [address] [place] [address], [id number] , [place], [facility] Comment on above: Performed By: #### 2 [id number] ####[facility] [address] [place] [address] Ambulatory Clinical Summaryo n 08-07-2020 Ambulatory Clinical Summary {[id number]-70- 60-be-43-67-0q-ve-84-a2}C D:003426 [facility] Patient Educationon 08-07-20 20 Patient Education Kegel [...] Document Reviewed: 07/18/2013 ExitCare? Patient Information ?2013 [employer] [facility]. [facility] Medicine Overactive Bladder, Adult The bladder has [...] bladder, your (more content not included)... [facility] Urology Office/Clinic Noteon 08-07-2020 Urology Office/Clinic Note [...] setting of nocturia q2hrs and daytime frequency r3syxno with painful post void bladder sensation of [...] [address] (more content not included)... [facility] Comment on above: Result Comment: Elec tronically Signed By: Dawna Marmolejo MD\.br\Date and Time Signed: 08/07/20 15:54 EDT\.br\Electronically Co-Signed By: Radha Hare MA.br\Date and Time Co-Signed: 08/07/20 15:44 EDT Vital Signs Date Time Vital Sign Value Performing Clinician Facility 08-12-2023 07:08-0400 Diastolic blood pressure 65 mm[Hg] Lex Salmon MD Work Phone: [facility] 08-12-2023 07:08-0400 Heart rate 77 /min Lex Salmon MD Work Phone: [facility] 08-12-2023 07:08-0400 SaO2% (BldA) [Mass fraction] 98 % Lex Salmon MD Work Phone: [facility] 08-12-2023 07:08-0400 Systolic blood pressure 132 mm[Hg] Lex Salmon MD Work Phone: [facility] 08-12-2023 06:48-0400 Respiratory rate 13 /min Lex Salmon MD Work Phone: [facility] 08-12-2023 00:25-0400 Body height 162.6 cm Lex Salmon MD Work Phone: [facility] 08-12-2023 00:25-0400 Body mass index (BMI) [Ratio] 28.01 kg/m2 Lex Salmon MD Work Phone: [facility] 08-12-2023 00:25-0400 Body temperature 97.59 [degF] Lex Salmon MD Work Phone: [facility] 08-12-2023 00:25-0400 Body weight 74.03 kg Lex Salmon MD Work Phone: [facility] 07-31-2023 14:27-0400 Body height 162.6 cm Nelsy Chávez [employer] OPER[employer] Work Phone: [facility] 07-31-2023 14:27-0400 Body weight 69.85 kg Nelsy Chávez [employer] OPERATOR Work Phone: [facility] 07-31-2023 14:27-0400 Diastolic blood pressure 96 mm[Hg] Nelsy Chávez [employer] OPERATOR Work Phone: [facility] 07-31-2023 14:27-0400 Heart rate 76 /min Nelsy Chávez [employer]TUB OPERATOR Work Phone: [facility] 07-31-2023 14:27-0400 Systolic blood pressure 136 mm[Hg] Nelsy Chávez DANNFRANCESCA Work Phone: [facility] 06-13-2023 10:37-0400 Body height 162.56 cm Eliceo Braden Stephonleigha Work Phone: [facility] [address] DO Work Phone: 06-13-2023 10:37-0400 Body mass index (BMI) [Ratio] 27.46 kg/m2 Eliceo Braden Stephonleigha Work Phone: [facility] [address] DO Work Phone: 06-13-2023 10:37-0400 Body surface area Derived from formula 1.78 m2 Eliceo Willams Work Phone: [facility] [address] DO Work Phone: 06-13-2023 10:37-0400 Body weight 72.58 kg Eliceo Braden Stephonleigha Work Phone: [facility] [address] DO Work Phone: 06-13-2023 10:37-0400 Diastolic blood pressure 70 mm[Hg] Eliceo Willams Work Phone: [facility] [address] DO Work Phone: 06-13-2023 10:37-0400 Heart rate 70 /min Eliceo Willams Work Phone: [facility] DO Work Phone: 06-13-2023 10:37-0400 Systolic blood pressure 100 mm[Hg] Eliceo Willams Work Phone: [facility] DO Work Phone: 06-13-2023 10:37-0400 11 1 Eliceo Willams Work Phone: [facility] DO Work Phone: Comment on above: PHQ-9 TS 06-05-2023 13:23-0400 Diastolic blood pressure 68 mm[Hg] DO Shannon Willams Work Phone: [facility] 06-05-2023 13:23-0400 Heart rate 72 /min DO Shannon Willams Work Phone: [facility] 06-05-2023 13:23-0400 Respiratory rate 18 /min DO Shannon Willams Work Phone: [facility] 06-05-2023 13:23-0400 SaO2% (BldA) [Mass fraction] 97 % DO Shannon Willams Work Phone: [facility] 06-05-2023 13:23-0400 Systolic blood pressure 129 mm[Hg] DO Shannon Willams Work Phone: [facility] 06-05-2023 09:32-0400 Body height 162.56 cm DO Shannon Willams Work Phone: [facility] 06-05-2023 09:32-0400 Body weight 73.9 kg DO Shannon Willams Work Phone: [facility] 06-05-2023 09:31-0400 Body temperature 97.5 [degF] DO Shannon Willams Work Phone: [facility] 01-16-2023 13:18-0400 Body height 162.6 cm [facility] 01-16-2023 13:18-0400 Body weight 68.04 kg [facility] 11-21-2022 08:00-0500 Body height 162.6 cm [facility] 2 Work Phone: [facility] 11-21-2022 08:00-0500 Body weight 64.86 kg [facility] 2 Work Phone: [facility] 10-11-2022 10:08-0500 Body height 162.6 cm Isra Masters DO Work Phone: [facility] 10-11-2022 10:08-0500 Body weight 78.02 kg Isra Masters DO Work Phone: [facility] 10-11-2022 10:08-0500 Diastolic blood pressure 97 mm[Hg] Isra Masters DO Work Phone: [facility] 10-11-2022 10:08-0500 Heart rate 89 /min Isra Masters DO Work Phone: [facility] 10-11-2022 10:08-0500 Systolic blood pressure 141 mm[Hg] Isra Masters DO Work Phone: [facility] 10-10-2022 14:30-0500 Body height 162.56 cm Annette Olexa Other [employer] Other 10-10-2022 14:30-0500 Body mass index (BMI) [Ratio] 28.66 kg/m2 Annette Olexa Other [employer] Other 10-10-2022 14:30-0500 Body weight 75.75 kg Annette Olexa Other [employer] Other 07-26-2022 11:13-0400 Body height 162.6 cm Mary Obrien MD Work Phone: [facility] 07-26-2022 11:13-0400 Body temperature 97.5 [degF] Mary Obrien MD Work Phone: [facility] 07-26-2022 11:13-0400 Body weight 77.56 kg Mary Obrien MD Work Phone: [facility] 07-26-2022 11:13-0400 Diastolic blood pressure 83 mm[Hg] Mary Obrien MD Work Phone: [facility] 07-26-2022 11:13-0400 Heart rate 95 /min Mary Obrien MD Work Phone: [facility] 07-26-2022 11:13-0400 SaO2% (BldA) [Mass fraction] 97 % Mary Obrien MD Work Phone: [facility] 07-26-2022 11:13-0400 Systolic blood pressure 110 mm[Hg] Mary Obrien MD Work Phone: [facility] 05-26-2022 11:45-0400 Body height 162.56 cm Annette Harris Other [employer] Other 05-26-2022 11:45-0400 Body mass index (BMI) [Ratio] 29.18 kg/m2 Annette Harris Other [employer] Other 05-26-2022 11:45-0400 Body weight 77.11 kg Annette Harris Other [employer] Other 05-12-2022 09:06-0400 Diastolic blood pressure 80 mm[Hg] Eliceo Braden Dalia Work Phone: [facility] [employer] DO Work Phone: 05-12-2022 09:06-0400 Systolic blood pressure 126 mm[Hg] Eliceo Willams Work Phone: [facility] [employer] 250 DO Work Phone: 05-12-2022 08:57-0400 Body height 162.56 cm Eliceo Willams Work Phone: [facility] [employer] DO Work Phone: 05-12-2022 08:57-0400 Body mass index (BMI) [Ratio] 29.87 kg/m2 Eliceo Willams Work Phone: [facility] [employer] DO Work Phone: 05-12-2022 08:57-0400 Body surface area Derived from formula 1.84 m2 Eliceo Willams Work Phone: [facility] [employer] DO Work Phone: 05-12-2022 08:57-0400 Body weight 78.93 kg Eliceo Willams Work Phone: [facility] [employer] 250 DO Work Phone: 05-12-2022 08:57-0400 Diastolic blood pressure 80 mm[Hg] Eliceo Willams Work Phone: [facility] 250 DO Work Phone: 05-12-2022 08:57-0400 Heart rate 68 /min Eliceo Willams Work Phone: [facility] [address] DO Work Phone: 05-12-2022 08:57-0400 Systolic blood pressure 130 mm[Hg] Eliceo Willams Work Phone: [facility] [employer] DO Work Phone: 05-10-2022 12:30-0400 Body height 162.56 cm Allison Lyla Other [employer] Other 05-10-2022 12:30-0400 Body mass index (BMI) [Ratio] 29.18 kg/m2 Allison Lyla Other [employer] Other 05-10-2022 12:30-0400 Body temperature 97.3 [degF] Allison Lyla Other [employer] Other 05-10-2022 12:30-0400 Body weight 77.11 kg Allison Lyla Other [employer] Other 05-10-2022 12:30-0400 Respiratory rate 18 /min Allison Lyal Other [employer] Other 05-10-2022 12:30-0400 SaO2% (BldA) [Mass fraction] 98 % Allison Arita Other [employer] Other 04-22-2022 12:04-0400 Body height 162.6 cm Jessi Sheets [employer] OPERATOR Work Phone: [facility] 04-22-2022 12:04-0400 Body weight 77.56 kg Jessi Sheets [employer] OPERATOR Work Phone: [facility] 04-22-2022 12:04-0400 Diastolic blood pressure 68 mm[Hg] Jessi Sheets [employer] OPERATOR Work Phone: [facility] 04-22-2022 12:04-0400 Heart rate 76 /min Jessi Sheets [employer] OPERATOR Work Phone: [facility] 04-22-2022 12:04-0400 SaO2% (BldA) [Mass fraction] 98 % Jessi Sheets [employer] OPERATOR Work Phone: [facility] 04-22-2022 12:04-0400 Systolic blood pressure 104 mm[Hg] Jessi Sheets [employer] OPERATOR Work Phone: [facility] 03-15-2022 16:30-0400 Body height 162.56 cm Annette Harris Other [employer] Other 03-15-2022 16:30-0400 Body mass index (BMI) [Ratio] 30.55 kg/m2 Annette Harris Other [employer] Other 03-15-2022 16:30-0400 Body weight 80.74 kg Annette Harris Other [employer] Other 03-15-2022 08:36-0400 Body height 162.6 cm Isra Masters DO Work Phone: [facility] 03-15-2022 08:36-0400 Body weight 83.01 kg Isra Masters DO Work Phone: [facility] 03-15-2022 08:36-0400 Diastolic blood pressure 87 mm[Hg] Isra Masters DO Work Phone: [facility] 03-15-2022 08:36-0400 Heart rate 85 /min Isra Masters DO Work Phone: [facility] 03-15-2022 08:36-0400 SaO2% (BldA) [Mass fraction] 100 % Isra Masters DO Work Phone: [facility] 03-15-2022 08:36-0400 Systolic blood pressure 133 mm[Hg] Isra Masters DO Work Phone: [facility] 03-14-2022 10:23-0400 Body height 162.6 cm Pacc 4 Work Phone: [facility] 03-14-2022 10:23-0400 Body temperature 97.2 [degF] Pacc 4 Work Phone: [facility] 03-14-2022 10:23-0400 Body weight 83.01 kg Pacc 4 Work Phone: [facility] 03-14-2022 10:23-0400 Diastolic blood pressure 76 mm[Hg] Pacc 4 Work Phone: [facility] 03-14-2022 10:23-0400 Heart rate 74 /min Pacc 4 Work Phone: [facility] 03-14-2022 10:23-0400 Respiratory rate 16 /min Pacc 4 Work Phone: [facility] 03-14-2022 10:23-0400 SaO2% (BldA) [Mass fraction] 98 % Pacc 4 Work Phone: [facility] 03-14-2022 10:23-0400 Systolic blood pressure 114 mm[Hg] Pacc 4 Work Phone: [facility] 02-18-2022 09:43-0400 Body height 162.6 cm Nelsy Chávez APRN.CNP Work Phone: [facility] 02-18-2022 09:43-0400 Body weight 80.29 kg Nelsy Katya [employer]OR [employer].TUB OPERATOR Work Phone: [facility] 02-18-2022 09:43-0400 Diastolic blood pressure 70 mm[Hg] Nelsy Katya SUPERVISOR [employer].TUB OPERATOR Work Phone: [facility] 02-18-2022 09:43-0400 Systolic blood pressure 110 mm[Hg] Nelsy Chávez SUPERVISOR [employer].TUB OPERATOR Work Phone: [facility] 02-08-2022 14:52-0400 Body height 162.6 cm Mary Obrien MD Work Phone: [facility] 02-08-2022 14:52-0400 Body weight 83.01 kg Mary Obrien MD Work Phone: [facility] 02-08-2022 14:52-0400 Diastolic blood pressure 76 mm[Hg] Mary Obrien MD Work Phone: [facility] 02-08-2022 14:52-0400 Heart rate 79 /min Mary Obrien MD Work Phone: [facility] 02-08-2022 14:52-0400 SaO2% (BldA) [Mass fraction] 97 % Mary Obrien MD Work Phone: [facility] 02-08-2022 14:52-0400 Systolic blood pressure 113 mm[Hg] Mary Obrien MD Work Phone: [facility] 02-08-2022 11:19-0400 Body weight 83.01 kg Magali Mitchell SUPERVISOR [employer].TUB OPERATOR Work Phone: [facility] 02-08-2022 11:19-0400 Diastolic blood pressure 76 mm[Hg] Magali Mitchell SUPERVISOR [employer].TUB OPERATOR Work Phone: [facility] 02-08-2022 11:19-0400 Heart rate 74 /min Magali Mitchell SUPER[employer]OR [employer].TUB OPERATOR Work Phone: [facility] 02-08-2022 11:19-0400 Systolic blood pressure 113 mm[Hg] Magali Stephen QUIGLEY.TUB OPERATOR Work Phone: [facility] 10-20-2021 09:45-0500 Body height 162.56 cm Annette Harris Other [employer] Other 10-20-2021 09:45-0500 Body mass index (BMI) [Ratio] 31.41 kg/m2 Annette Harris Other [employer] Other 10-20-2021 09:45-0500 Body weight 83.01 kg Annette Harris Other [employer] Other 08-19-2021 17:10-0400 Body height 162.56 cm Erica Vashti Other [employer] Other 08-19-2021 17:10-0400 Body mass index (BMI) [Ratio] 31.24 kg/m2 Erica Vashti Other [employer] Other 08-19-2021 17:10-0400 Body temperature 97.3 [degF] Erica Vashti Other [employer] Other 08-19-2021 17:10-0400 Body weight 82.56 kg Erica Vashti Other [employer] Other 08-19-2021 17:10-0400 Diastolic blood pressure 82 mm[Hg] Erica Vashti Other [employer] Other 08-19-2021 17:10-0400 Respiratory rate 18 /min Erica Vashti Other [employer] Other 08-19-2021 17:10-0400 SaO2% (BldA) [Mass fraction] 98 % Erica Kingston Other [employer] Other 08-19-2021 17:10-0400 Systolic blood pressure 126 mm[Hg] Erica Kingston Other [employer] Other 08-13-2021 10:15-0400 Body height 162.56 cm Tita Ginty Other [employer] Other 08-13-2021 10:15-0400 Body mass index (BMI) [Ratio] 30.89 kg/m2 Tita Ginty Other [employer] Other 08-13-2021 10:15-0400 Body temperature 6 [degF] Tita Ginty Other [employer] Other 08-13-2021 10:15-0400 Body weight 81.65 kg Tita Ginty Other [employer] Other 08-13-2021 10:15-0400 SaO2% (BldA) [Mass fraction] 99 % Tita Ginty Other [employer] Other 07-28-2021 09:30-0400 Body height 162.56 cm Annette Harris Other [employer] Other 07-28-2021 09:30-0400 Body mass index (BMI) [Ratio] 30.89 kg/m2 Annette Harris Other [employer] Other 07-28-2021 09:30-0400 Body weight 81.65 kg Annette Harris Other [employer] Other Encounters Encounter Date Encounter Type Care Provider Facility Start: 11-10-2023 End: 11-10-2023 ambulatory ELICEO WILLAMS Not Available Start: 11-08-2023 [facility] Start: 10-31-2023 End: 11-01-2023 ambulatory RON KING Not Available Start: 10-27-2023 End: 10-28-2023 ambulatory EAGLE LEE Not Available Start: 10-26-2023 Telephone encounter [facility] Start: 10-26-2023 End: 10-26-2023 ambulatory RON Rivera [facility] Other Start: 10-24-2023 End: 10-24-2023 ambulatory EAGLE LEE Not Available Start: 10-23-2023 End: 10-23-2023 ambulatory [facility] Start: 10-10-2023 End: 10-10-2023 ambulatory PAM WANG Facility:[facility] Start: 10-06-2023 End: 10-06-2023 ambulatory Annette Harris Other [facility] Other Start: 10-06-2023 Telephone encounter [facility] Start: 10-03-2023 End: 10-04-2023 ambulatory ELICEO WILLAMS Not Available Start: 09-27-2023 End: 09-27-2023 ambulatory Pam Wang MD Work Phone: Urogynecology Comment on above: Worsening Start: 09-27-2023 Refill Doris Arias APRN.TUB OPERATOR Work Phone (unformatted): [phone] Urogynecology Comment on above: Med Change Request Start: 09-21-2023 End: 09-21-2023 ambulatory ELICEO WILLAMS Not Available Start: 09-11-2023 End: 09-11-2023 ambulatory PAM WANG Facility:[facility] Start: 08-23-2023 End: 08-23-2023 ambulatory [place] Start: 08-12-2023 End: 08-12-2023 Emergency department patient visit LEX SALMON [facility] Start: 08-12-2023 End: 08-12-2023 Emergency department patient visit Lex Salmon MD Work Phone: [facility] Emergency Dept Comment on above: Upper abdominal pain (Primary Dx) Start: 08-09-2023 ambulatory Mary Obrien MD Work Phone: Colorectal Surgery Comment on above: Response Start: 08-07-2023 End: 08-07-2023 ambulatory Mary Obrien MD Work Phone: Colorectal Surgery Comment on above: Colon Start: 08-01-[address] Eliceo Willams Jr Facility: Start: 07-31-2023 End: 07-31-2023 ambulatory NELSY CHÁVEZ Facility:[facility] Start: 07-31-2023 End: 07-31-2023 Patient encounter procedure Nelsy Katyapawel HAREN.TUB OPERATOR Work Phone: URO/Gynecology Comment on above: Incomplete bladder e mptying (Primary Dx); Constipation, unspecified constipation type; Urinary urgency; Urinary frequency; Nocturia Start: 07-25-2023 End: 07-26-2023 ambulatory [facility] Start: 07-17-2023 (Procedure) [facility] Start: 07-17-2023 End: 07-17-2023 ambulatory Annette Harris Other [facility] Other Start: 07-12-2023 End: 07-12-2023 ambulatory Annette Harris Other [facility] Other Start: 07-12-2023 Telephone encounter Annette [facility] Start: 06-13-2023 Office consultation new/estab patient 60 min Eliceo Willams Work Phone: [facility] DO Work Phone: Start: 06-13-[address] Juan Anaya Facility: Start: 06-08-2023 End: 06-08-2023 ambulatory GIANA [facility] Start: 06-07-[address] Juan Anaya Facility:[id number] Start: 06-05-2023 End: 06-05-2023 Emergency department patient visit Shannon Willams Facility:[facility] Start: 06-05-2023 End: 06-05-2023 Emergency department patient visit DO Shannon Willams Work Phone: [facility] Work Phone: Start: 05-31-2023 End: 05-31-2023 ambulatory DEB HART [facility] Start: 05-28-2023 ambulatory Pam rios MD Work Phone: URO/Gynecology Comment on above: Problems with urinat ing Start: 05-22-2023 End: 05-22-2023 ambulatory [facility] Start: 05-17-2023 End: 05-17-2023 ambulatory GIANA [facility] Start: 05-17-2023 End: 05-17-2023 ambulatory RADHA [facility] Start: 04-26-2023 End: 04-26-2023 ambulatory Annette Harris Other [employer] Other Start: 04-26-2023 Office outpatient vi sit 25 minutes Annette Harris [facility] Start: 04-17-[address] [facility] Start: 04-11-2023 Refill Isra S Clin e DO Work Phone: Gastroenterology Comment on above: Refill Request Start: 04-10-[address] [facility] Start: 04-04-2023 End: 04-05-[address] Isatu WILLAMS Facility:[facility] Start: 03-20-[address] [facility] Start: 03-19-2023 ambulatory Isra S Clin e DO Work Phone: Gastroenterology Comment on above: Stool sample results Start: 03-17-2023 End: 03-17-2023 ambulatory Niecy Duron Facility:[facility] Start: 03-17-2023 End: 03-17-2023 ambulatory DO Shannon Willams Work Phone: [facility] Work Phone: Start: 03-17-2023 End: 03-17-2023 Discharged Recurring DO Shannon Willams Work Phone: [facility]-Physical [facility] [place] Work Phone: Start: 03-16-2023 End: 03-16-2023 ambulatory ELICEO WILLAMS JR Facility:[facility] Start: 03-15-2023 Orders Only Isra rios DO Work Phone: Gastroenterology Comment on above: Diarrhea due to power bsorption (Primary Dx) What lab? Start: 03-06-2023 End: 03-06-[address] Isatu WILLAMS Facility:[facility] Start: 03-06-[address] [facility] Start: 02-27-[address] [facility] Start: 02-21-2023 End: 02-22-[address] Isatu WILLAMS Facility:[facility] Start: 02-20-[address] [facility] Start: 02-19-2023 End: 02-19-[address] Isatu WILLAMS Facility:[facility] Start: 02-16-2023 End: 02-16-2023 ambulatory GIANA [facility] Start: 02-13-[address] [facility] Start: 02-06-[address] [facility] Start: 02-02-2023 End: 02-02-2023 ambulatory GIANA [facility] Start: 01-31-2023 End: 02-01-2023 ambulatory NIECY DURON Facility:[facility] Start: 01-27-2023 End: 01-27-[address] Isatu WILLAMS Facility:[facility] Start: 01-23-2023 ambulatory CARMEN DORSEY [facility] Start: 01-20-2023 ambulatory Winstonaureliano chand DO Work Phone: General Surgery Comment on above: Clarification Start: 01-19-2023 ambulatory Winston chand DO Work Phone: General Surgery Comment on above: General Start: 01-16-2023 Encounter for other preprocedural examination WINSTON HANNAH [facility] Start: 01-16-2023 Telephone encounter Mounika farrell PA-C Work Phone: Pre Anesthesia Comment on above: Appointment (Pt has not arrived for her 1 pm appointment) Start: 01-16-2023 End: 01-16-2023 Admission to establishment [facility] Start: 01-16-2023 End: 01-16-2023 ambulatory WINSTON HANNAH [...] End: 01-10-2023 Telemedicine consultation with patient Winston Zoya Hannah DO Work Phone: [facility] Start: 01-06-2023 End: 01-06-2023 ambulatory ANNETTE SWANSON [facility] Start: 01-02-2023 End: 01-02-2023 ambulatory CARMEN DORSEY [facility] Start: 12-28-2022 ambulatory Yoni Tuttle MD Work Phone: NEUROLOGY Comment on above: No response Start: 12-26-2022 End: 12-26-2022 ambulatory WINSOTN KARIMITRINITYAFSHIN Facility:[facility] Start: 12-26-2022 End: 12-26-2022 Subsequent hospital [...] with patient Winston Hannah DO Work Phone: [facility] Start: 12-21-2022 End: 12-22-2022 [facility] Facility: Start: 12-15-2022 End: 12-15-2022 ambulatory ELICEO WILLAMS JR Facility:[facility] Start: 12-15-2022 End: 12-15-2022 Manual pelvic examination Mary Obrien MD Work Phone: Colorectal Surgery Comment on above: Colonic inertia (Phoebe unique Dx); Pelvic floor dysfunction; Nausea; Gastroparesis Start: 12-15-2022 End: 12-15-2022 Telemedicine consultation with patient Mary Obrien MD Work Phone: [facility] Start: 12-14-2022 ambulatory Yoni Tuttle MD Work Phone: NEUROLOGY Comment on above: Right number? Start: 12-12-2022 ambulatory CARMEN DORSEY [facility] Start: 12-09-2022 End: 12-09-2022 ambulatory Mary Obrien MD Work Phone: Colorectal Surgery Comment on above: Colon Start: 12-09-2022 Telephone encounter Mary brewer MD Work Phone: Colorectal Surgery Comment on above: Patient Question Start: 12-08-2022 Telephone encounter Isra Galarzae DO Work Phone: Gastroenterology Comment on above: Results (Sigmoidosco py results; patient questions) Start: 12-07-2022 ambulatory Winston Karimisavita c DO Work Phone: General Surgery Comment on above: Carafate Start: 12-06-2022 ambulatory Isra S Clin e DO Work Phone: Gastroenterology Comment on above: Results Start: 12-05-2022 ambulatory Winston Karimitrinityamena c DO Work Phone: [facility] Start: 12-02-2022 ambulatory Isra S Clin e DO Work Phone: [facility] Start: 12-02-2022 Telephone encounter Yoni Tuttle MD Work Phone: Neurology Comment on above: Returning Nurse Call Start: 12-01-2022 End: 12-02-2022 ambulatory NIECY DURON Facility: Start: 11-30-2022 End: 11-30-2022 ambulatory ELICEO WILLAMS Facility:[facility] Start: 11-30-2022 End: 11-30-2022 ambulatory Isra Thorpe Masters DO Work Phone: Gastroenterology Comment on above: Chronic idiopathic c onstipation (Primary Dx); Nausea Start: 11-30-2022 End: 11-30-2022 Telemedicine consultation with patient Isra Galarzae DO Work Phone: [facility] Start: 11-30-2022 End: 11-30-2022 ambulatory CARMEN DORSEY [facility] Start: 11-24-2022 End: 11-25-2022 ambulatory Isra S Masters DO Work Phone: Gastroenterology Comment on above: SMART PILL RESULTS Approval for upcomin g pap titration test Start: 11-24-2022 Telephone encounter Yoni Tuttle MD Work Phone: Neurology Comment on above: Is PA Needed for PAP Titration Start: 11-23-2022 End: 11-23-2022 ambulatory CARMEN KAILA [facility] Start: 11-22-2022 Telephone encounter Isra Ila Masters Work Phone: Gastroenterology Comment on above: Patient Update Start: 11-21-2022 End: 11-21-2022 ambulatory Yoni Tuttle MD Work Phone: Pre Anesthesia Comment on above: Pre-op exam (Primary Dx); Primary hypertension; Mild persistent asthma without complication; Gastroparesis; CHUCKIE (obstructive sleep apnea) Orders Start: 11-21-2022 Encounter for other preprocedural examination WINSTON HANNAH [facility] Start: 11-21-2022 End: 11-21-2022 [facility] Work Phone: [facility] Start: 11-21-2022 End: 11-21-2022 Preprocedural examination done [facility] Work Phone: Pre Anesthesia Start: 11-18-2022 End: 11-18-2022 ambulatory ANNETTE SWANSON [facility] Start: 11-17-2022 End: 11-17-2022 ambulatory Annmarie Gillespie RNproperty economist Start: 11-17-2022 Patient encounter procedure Annmarie Gillespie RN [facility] Start: 11-17-2022 End: 11-17-2022 Subsequent hospital visit by physician Capsule Work Phone: Gastroenterology Start: 11-16-2022 End: 11-16-2022 ambulatory Yoni Tuttle MD Work Phone: NEUROLOGY Comment on above: The delay Start: 11-15-2022 ambulatory Yoni Tuttle MD Work Phone: NEUROLOGY Comment on above: Labs Start: 11-14-2022 End: 11-15-2022 ambulatory NIECY DURON Facility:[facility] Start: 11-10-2022 Telephone encounter Annmarie Gillespie RNproperty economist Comment on above: [employer] Start: 11-10-2022 End: 11-11-2022 ambulatory NIECY DURON Facility:[facility] Start: 11-09-2022 Telephone encounter Yoni Tuttle MD Work Phone: Neurology Comment on above: Orders (SENT PATIENT S IRON RX ) Patient Update Start: 11-04-2022 ambulatory GIANA [facility] Start: 11-04-2022 End: 11-04-2022 ambulatory ANNETTE SWANSON [facility] Start: 11-02-2022 Telephone encounter Yoni Tuttle MD Work Phone: Neurology Comment on above: Results - Sleep Stud y Start: 10-31-2022 ambulatory Yoni Tuttle MD Work Phone: NEUROLOGY Comment on above: Iron test Smart pill Start: 10-24-2022 Telephone encounter Isra Masters DO Work Phone: Gastroenterology Comment on above: Patient Question Start: 10-23-2022 [facility] Start: 10-20-2022 End: 10-20-2022 ambulatory Isra Masters [...] Start: 10-14-2022 End: 10-14-2022 ambulatory Annette Cartagena Facility:[facility] Start: 10-14-2022 End: 10-14-2022 ambulatory DO Shannon Willams Work Phone: [facility] Work Phone: Start: 10-14-2022 End: 10-14-2022 Discharged Recurring DO Shannon Willams Work Phone: [facility] [place] Work Phone: Start: 10-13-2022 End: 10-14-2022 [facility]ulatory [facility] Start: 10-13-2022 End: 10-14-2022 Encounter for preprocedural laboratory examination SADE Keys [facility] Facility:[facility] Start: 10-11-2022 End: 10-11-2022 ambulatory Annette Cartagena Other [employer] Other Start: 10-11-2022 Telephone encounter Annette Cartagena [facility] [employer] Start: 10-11-2022 End: 10-11-2022 Patient encounter procedure Isra Masters DO Work Phone: Gastroenterology Comment on above: Gas bloat syndrome ( Primary Dx); Chronic idiopathic constipation; Gastroparesis Start: 10-10-2022 End: 10-10-2022 ambulatory Annette Cartagena Other [employer] Other Start: 10-10-2022 Office outpatient ne w 30 minutes Annette Cartagena [facility] Start: 10-06-2022 End: 10-06-2022 ambulatory Annette Harris Other [employer] Other Start: 10-06-2022 Patient encounter procedure Annette Harris [facility] Start: 09-28-2022 Encounter for other preprocedural examination SADE Keys [facility] Start: 09-28-2022 Encounter for preprocedural cardiovascular examination SADE Keys [facility] Start: 09-26-2022 End: 09-27-2022 ambulatory SADE WILDE Facility:[facility] Start: 09-22-2022 Office outpatient vi sit 25 minutes Annette Harris [facility] Start: 09-22-2022 Telephone encounter Annette Harris [facility] Start: 09-22-2022 End: 09-22-2022 ambulatory DO Shannon Willams Work Phone: [employer] Other Start: 09-22-2022 End: 09-22-2022 Patient encounter procedure DO IsatuReno Parish Szymanskileigha Work Phone: [facility] Start: 09-14-2022 End: 09-14-2022 ambulatory Eliceo Willams Other [employer] Other Start: 09-14-2022 Encounter by sierra Willams [facility] Start: 09-14-2022 Office outpatient vi sit 15 minutes Annette Harris [facility] Start: 09-14-2022 Telephone encounter Annette Harris FP [facility] Start: 08-16-2022 ambulatory Mary Obrien MD Work Phone: Colorectal Surgery Comment on above: CT results Ct scan result quest ion Start: 08-16-2022 E-mail encounter fro m caregiver Mary Obrien MD Work Phone: [facility] Start: 08-12-2022 End: 08-12-2022 Subsequent hospital visit by physician Ct Prep [facility] Start: 07-27-2022 End: 07-28-2022 ambulatory [facility] Facility: Start: 07-26-2022 Telephone encounter Isra Masters DO Work Phone: Gastroenterology Comment on above: Medication Problem; Medication 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 ([place] for Dexlansoprazole) Start: 07-26-2022 End: 07-26-2022 Patient encounter procedure Mary Obrien MD Work Phone: Colorectal Surgery Comment on above: Follow-up examinatio n after colorectal surgery (Primary Dx); Periumbilical abdominal pain; Outlet dysfunction constipation; Colonic inertia Start: 06-08-2022 (Procedure) [facility] Start: 06-08-2022 End: 06-08-2022 ambulatory Annette Harris Other [employer] Other Start: 05-30-2022 Refill Mary Obrien MD Work Phone: Colorectal Surgery Comment on above: Refill Request Start: 05-26-2022 End: 05-26-2022 ambulatory Annette Harris Other [employer] Other Start: 05-26-2022 Office outpatient vi sit 25 minutes Annette Harris [facility] Start: 05-12-2022 Office consultation new/estab patient 60 min Eliceo Willams Work Phone: [facility] DO Work Phone: Start: 05-10-2022 End: 05-10-2022 ambulatory Allison Lutzault Other [employer] Other Start: 05-10-2022 Office outpatient vi sit 15 minutes Allison Lyla [facility] Start: 05-03-2022 Telephone encounter Mary brewer MD Work Phone: Colorectal Surgery Comment on above: 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 Facility: Start: 04-07-2022 Telephone encounter Rachael Keys [facility] Department Comment on above: PostOp Follow-up Start: 03-22-2022 Telephone encounter Mary brewer MD Work Phone: Colorectal Surgery Comment on above: Patient Question Start: 03-15-2022 End: 03-15-2022 ambulatory Annette Harris Other [employer] Other Start: 03-15-2022 Office outpatient vi sit 15 minutes Annette Harris [facility] Start: 05-10-2022 Telephone encounter Mary brewer MD Work Phone: Colorectal Surgery Comment on above: Cloth Washer - O ther Medication Preauthor ization ([place] for Dexilant renewal) Outside Labs Results Start: 03-15-2022 End: 03-15-2022 Patient encounter procedure Isra Masters DO Work Phone: Gastroenterology Comment on above: Gastroesophageal ref lux disease, unspecified whether esophagitis present; Chronic idiopathic constipation Start: 03-14-2022 End: 03-14-2022 PAT [place] [id number] Work Phone: Pre Anesthesia Comment on above: Preop examination (P rimary Dx); Attention to ileostomy ([facility]); Primary hypertension; Gastroparesis; Gastroesophageal reflux disease, unspecified whether esophagitis present; Mild persistent asthma without complication; Bipolar 1 disorder ([facility]); Obesity (BMI 30.0-34.9) Start: 03-14-2022 End: 03-14-2022 Preprocedural examination done [facility] Work Phone: Pre Anesthesia Start: 02-28-2022 Telephone encounter Isra Masters DO Work Phone: Gastroenterology Comment on above: Appointment (for scr ipt refill) Start: 02-18-2022 End: 02-18-2022 Patient encounter procedure Nelsy Chávez DANN.TUB OPERATOR Work Phone: URO/Gynecology Comment on above: Postoperative state (Primary Dx) Start: 02-11-2022 End: 02-11-2022 ambulatory Flaca Bartholomew [facility] Start: 02-11-2022 End: 02-11-2022 Follow-up encounter Flaca Bartholomew PT Work Phone: [facility] Physical [facility] Comment on above: Pelvic floor dysfunc tion (Primary Dx); Lack of coordination; Follow-up examination after colorectal surgery Start: 02-09-2022 (Procedure) [facility] Start: 02-09-2022 End: 02-09-2022 ambulatory Annette Harris Other [employer] Other Start: 02-08-2022 End: 02-08-2022 Patient encounter procedure Mary Obrien MD Work Phone: Colorectal Surgery Comment on above: Follow-up examinatio n after colorectal surgery (Primary Dx) Post-operative state (Primary Dx); Yeast infection of the skin Start: 02-01-2022 Refill Isra S Clin e DO Work Phone: Gastroenterology Comment on above: Refill Request (dexl ansoprazole) Start: 01-31-2022 End: 01-31-2022 ambulatory Newton Woodward PT Work Phone: [facility] Start: 01-31-2022 End: 01-31-2022 Follow-up encounter Newton Woodward PT Work Phone: [facility] Physical Therapy Comment on above: Pelvic floor dysfunc tion (Primary Dx); Lack of coordination; Follow-up examination after colorectal surgery Start: 11-25-2021 End: 11-25-2021 ambulatory Annette Harris Other [employer] Other Start: 11-25-2021 Office outpatient vi sit 25 minutes Annette Harris [facility] Start: 11-17-2021 End: 11-18-2021 ambulatory [facility] Start: 10-20-2021 End: 10-20-2021 ambulatory Annette Harris Other [employer] Other Start: 10-20-2021 Office outpatient vi sit 25 minutes Annette Harris [facility] Start: 10-13-2021 (Procedure) [facility] Start: 10-13-2021 End: 10-13-2021 ambulatory Annette Harris Other [employer] Other Start: 09-06-2021 Office outpatient vi sit 25 minutes Annette Harris [facility] Start: 08-19-2021 Office outpatient vi sit 15 minutes Erica Kingston [facility] Start: 08-13-2021 Office outpatient vi sit 15 minutes Tita Daugherty [facility] Start: 08-12-2021 Office outpatient vi sit 25 minutes Annette Harris [facility] Rosendo Leon Start: 07-28-2021 Office outpatient vi sit 25 minutes Annette Harris [facility] [place] Procedures Date Procedure Procedure Detail Performing Clinician Start: 10-23-2023 Follow-up visit Follow-up PAULINE Thomas WHITECHRISTENSEN Start: 10-23-2023 Adult depression scr eening assessment Patricia Zamora Start: 08-12-2023 Assay of troponin quantitative Levalayna Ritter APRN TUB OPERATOR Work Phone: Start: 08-12-2023 Ct abdomen & pelvis w/contrast material Lev Ritter APRN TUB OPERATOR Work Phone: Start: 08-12-2023 Urnls dip stick/tabl et reagent auto microscopy Lex Salmon MD Work Phone: Start: 08-12-2023 Basic metabolic pane l calcium total Lex Salmon MD Work Phone: Start: 08-12-2023 DARK GREEN TOP Lex buitrago MD Work Phone: Start: 08-12-2023 GOLD TOP Lex bacon MD Work Phone: Start: 08-12-2023 Hepatic function panel Lev Ritter APRN [facility] Work Phone: Start: 08-12-2023 LIGHT BLUE [...] et rgnt auto w/o microscopy Nelsy Chávez SU[employer].TUB OPERATOR Work Phone: Start: 06-05-2023 Plain chest X-ray [...] - S jay or Plasma Nelsy Chávez [employer].TUB OPERATOR Work Phone: Start: 02-08-2022 Urnls dip stick/tabl et rgnt auto w/o microscopy Magali Mitchell [employer].TUB OPERATOR Work Phone: Start: 12-16-2021 Antibody screen Comment on above: Performed By: #### T SCR30 ####[address] [phone] Start: 10-15-2021 Antibody screen Comment on above: Performed By: #### T SCR30 ####[address] [phone] Start: 06-28-2021 Mammography Mary brewer MD Work Phone: Start: 02-18-2021 H/O: surgery S/P nasal septoplasty C nestora amelia Start: 02-18-2021 History of tonsillectomy S/P tonsill ectomy Patricia Zamora Colonoscopy Eliceo Willams Work Phone: Hysterectomy Eliceo [...] DTAP/TDAP/TD VACCINE (2 - Td or Tdap) [facility] Start: 06-22-2030 DTaP,Tdap and Td Vaccines (2 - Td or Tdap) DTaP,Tdap and Td Vaccines (2 - Td or Tdap) [facility] Start: 06-22-2030 Urine microalbumin profile DTaP,Tdap,Td Vaccine (2 - Td or Tdap) [facility] Start: 12-05-2027 COLORECTAL CANCER SCREENING COLORECTAL CANCER SCREENING [facility] Start: 12-05-2027 SIGMOIDOSCOPY SIGMOIDOSCOPY [facility] Start: 03-02-2027 Lipid 1996 panel - S jay or Plasma Lipid Screening [facility] Start: 03-02-2027 LIPID SCREEN LIPID SCREEN [facility] Start: 04-05-2025 DIABETES SCREEN DIABETES SCREEN [facility] Start: 04-05-2025 Diabetes Screening Diabetes Screenin g [facility] Start: 03-14-2025 DIABETES SCREEN DIABETES SCREEN [facility] Start: 12-26-2024 DIABETES SCREEN DIABETES SCREEN [facility] Start: 10-23-2024 Adult BMI Screening Adult BMI Screen ing [facility] Start: 10-23-2024 Depression Screening Depression Scre ening [facility] Start: 10-23-2024 Tobacco Screening Tobacco Screening [facility] Start: 04-18-2024 End: 04-18-2024 Patient encounter procedure 04/18/2024 1:30 PM EDT Office Visit [facility] [address] [place] [phone] Pauline Christensen MD [address] [place] [address], [address] [place] [address] [facility] Start: 09-27-2023 End: 12-27-2023 Bacteria identified in Urine by Culture URINE CULTURE Microbiology Routine Burning with urination Expected: 09/27/2023, Expires: 12/27/2023 [facility] Work Phone: Comment on above: Expected: 09/27/2023 , Expires: 12/27/2023 Start: 09-14-2023 Screening for malign ant neoplasm of breast MAMMOGRAM [facility] Start: 08-01-2023 FUV, Provider: Juan Anaya, Status: Pen, Time: 11:00 AM FUV, Provider: Juan Anaya, Status: Pen, Time: 11:00 AM [facility] DO Work Phone: Start: 07-07-2023 Covid-19 Vaccine ( season) Covid-19 Vaccine ( season) [facility] Start: 07-07-2023 Influenza vaccination C [facility] Start: 07-07-2023 Influenza vaccinatio n given INFLUENZA VACCINE (#1) [facility] Start: 06-05-2023 [facility] Start: 04-22-2023 BP CONTROLLED (<130/80) BP CONTROLLE D (<130/80) [facility] Start: 03-14-2023 BP CONTROLLED (<130/80) BP CONTROLLE D (<130/80) [facility] Start: 02-18-2023 BP CONTROLLED (<130/80) BP CONTROLLE D (<130/80) [facility] Start: 02-08-2023 BP CONTROLLED (<130/80) BP CONTROLLE D (<130/80) [facility] Start: 01-18-2023 BP CONTROLLED (<130/80) BP CONTROLLE D (<130/80) [facility] Start: 11-06-2022 DEPRESSION ASSESSMENT DEPRESSION ASS ESSMENT [facility] Start: 09-22-2022 [facility] Start: 08-02-2022 End: 08-25-2023 Ct abdomen & pelvis w/contrast material CT ABD/PEL W IVCON Radiology Routine Periumbilical abdominal pain Expected: 08/02/2022, Expires: 08/25/2023 [facility] Work Phone: Comment on above: Expected: 08/02/2022 , Expires: 08/25/2023 Start: 07-07-2022 Influenza vaccination C [facility] Start: 06-28-2022 Mammography [facility] Start: 2022 Administration of varicella zoster vaccine Zoster (Shingles) Vaccine (1 of 2) [facility] Start: 2022 COVID-19 VACCINE (4 - Booster for Pfizer series) COVID-19 VACCINE (4 - Booster for Pfizer series) [facility] Start: 2022 SHINGRIX VACCINE (1 of 2) SHINGRIX VACCINE (1 of 2) [facility] Start: 2022 Zoster vaccine hzv l annika for subcutaneous use ZOSTER (SHINGLES) VACCINE (1 of 2) [facility] Start: 04-01-2022 End: 06-01-2022 CBC W Auto Differential panel - Blood CBC + DIFF Lab Routine Follow-up examination after colorectal surgery Expected: 04/01/2022, Expires: 06/01/2022 [facility] Work Phone: Comment on above: Expected: 04/01/2022 , Expires: 06/01/2022 Start: 04-01-2022 End: 06-01-2022 Comprehensive metabolic 2000 panel - Serum or Plasma COMP METABOLIC PANEL Lab Routine Follow-up examination after colorectal surgery Expected: 04/01/2022, Expires: 06/01/2022 [facility] Work Phone: Comment on above: Expected: 04/01/2022 , Expires: 06/01/2022 Start: 04-01-2022 End: 06-01-2022 TYPE AND SCREEN,30 DAY TYPE AND SCREEN,30 DAY Blood Bank Routine Follow-up examination after colorectal surgery Expected: 04/01/2022, Expires: 06/01/2022 [facility] Work Phone: Comment on above: Expected: 04/01/2022 , Expires: 06/01/2022 Start: 01-19-2022 COVID-19 VACCINE (4 - Booster for Pfizer series) COVID-19 VACCINE (4 - Booster for Pfizer series) [facility] Start: 01-19-2022 COVID-19 VACCINE (4 - Pfizer series) COVID-19 VACCINE (4 - Pfizer series) [facility] Start: 11-06-2021 DEPRESSION ASSESSMENT DEPRESSION ASS ESSMENT [facility] Start: 07-07-2021 Influenza vaccination INFLUENZA (#1) [facility] Start: 2017 COLOGUARD (FIT-DNA) COLOGUARD (FIT-D NA) [facility] Start: 2017 Colonoscopy COLONOSCOPY [facility] Start: 2017 COLORECTAL CANCER SCREENING COLORECTAL CANCER SCREENING [facility] Start: [address] COLONOGRAPHY [facility] Start: 2017 FECAL OCCULT BLOOD FECAL OCCULT BLOO D [facility] Start: 2017 LIPID SCREEN LIPID SCREEN [facility] Start: 2017 Screening for malign ant neoplasm of colon [facility] Start: 2017 SIGMOIDOSCOPY SIGMOIDOSCOPY [facility] Start: 2012 Mammography MAMMOGRAM [facility] Start: 10-11-2008 Hepatitis B Vaccine (3 of 3 - 19+ 3-dose series) Hepatitis B Vaccine (3 of 3 - 19+ 3-dose series) [facility] Start: 2002 HPV TESTING HPV TESTING [facility] Start: 1993 PAP TESTING PAP TESTING [facility] Start: 1991 Urine microalbumin profile [facility] Start: 1990 Adult BMI Follow Up Plan Adult BMI Follow Up Plan [facility] Start: 1990 ANNUAL PCP TEAM DITCH DIGGER ALEKSANDAR DISEASE VISIT ANNUAL PCP TEAM CHRONIC DISEASE VISIT [facility] Start: 1990 ANNUAL WELLNESS VISIT ANNUAL WELLNES S VISIT [facility] Start: 1990 BP CONTROLLED (<130/80) BP CONTROLLE D (<130/80) [facility] Start: 1990 HEPATITIS C SCREENING HEPATITIS C SC REENING [facility] Start: 1990 HIV SCREENING HIV SCREENING [facility] Start: 1984 Adult depression screening assessment DEPRESSION SCREENING [facility] Start: 1984 Depression screening using PHQ-9 (Patient Health Questionnaire 9) score DEPRESSION SCREENING [facility] Start: 1978 PNEUMOCOCCAL (1 - PCV) PNEUMOCOCCAL (1 - PCV) [facility] Start: 1978 Pneumococcal vaccination Pneum ococcal Vaccine (1 - PCV) [facility] Start: 1972 HEPATITIS B (1 of 3 - 3-dose series) HEPATITIS B (1 of 3 - 3-dose series) [facility] Start: 1972 Hepatitis B Vaccine (1 of 3 - 3-dose series) Hepatitis B Vaccine (1 of 3 - 3-dose series) [facility] Start: 1972 HPV/COTEST HPV/COTEST [facility] Start: 1972 Screening for malign ant neoplasm of cervix [facility] 12 lead ECG EKG 12 lead ECG REYNA 08/12/2023 12:28 AM [employer] [facility] Work Phone: CT Abdomen and Pelvi s W contrast IV CT Abdomen / Pelvis With IV Contrast ONLY Imaging STAT 08/12/2023 5:42 AM Lumenz Waluzi [facility] End: 01-12-2024 EGD - THERAPEUTIC, EUS, OR TUBE INTERVENTIONS EGD - THERAPEUTIC, EUS, OR TUBE INTERVENTIONS Endoscopy Routine Gastroparesis 1 Occurrences starting 01/11/2023 until 01/12/2024 [facility] Work Phone: Comment on above: 1 Occurrences starti ng 01/11/2023 until 01/12/2024 FAT, FECAL QUAL FAT, FECAL QUAL Lab Routine Diarrhea due to malabsorption Ordered: 03/15/2023 [facility] Work Phone: Comment on above: Ordered: 03/15/2023 End: 10-11-2023 Gi transit & pres ravinder wireless capsule w/interp CAPSULE ENDOSCOPY SMART Endoscopy Routine Gastroparesis 1 Occurrences starting 10/11/2022 until 10/11/2023 [facility] Work Phone: Comment on above: 1 Occurrences starti ng 10/11/2022 until 10/11/2023 End: 12-17-2023 PAP TITRATION PSG (CPAP, BIPAP, ASV) PAP TITRATION PSG (CPAP, BIPAP, ASV) Procedures Routine CHUCKIE (obstructive sleep apnea) 1 Occurrences starting 11/17/2022 until 12/17/2023 [facility] Work Phone: Comment on above: 1 Occurrences starti ng 11/17/2022 until 12/17/2023 Patient Education Chest Pain, Adult ED [facility] Work Phone: Patient referral [facility] Work Phone: SARS-CoV-2 (COVID-19 ) RNA [Presence] in Respiratory specimen by JOSÉ MIGUEL with probe detection SELF CHECK COVID Microbiology Routine Follow-up examination after colorectal surgery Ordered: 02/09/2022 [facility] Work Phone: Comment on above: Ordered: 02/09/2022 End: 11-30-2023 SIGMOIDOSCOPY SIGMOIDOSCOPY Endoscopy Routine Chronic idiopathic constipation 1 Occurrences starting 11/30/2022 until 11/30/2023 [facility] Work Phone: Comment on above: 1 Occurrences starti ng 11/30/2022 until 11/30/2023 End: 08-12-2023 Troponin I.cardiac [Mass/volume] in Serum or Plasma Troponin I (One time) Lab Timed Once for 1 Occurrences starting 08/12/2023 until 08/12/2023 [facility] Work Phone: Comment on above: Once for 1 Occurrenc es starting 08/12/2023 until 08/12/2023 URODYNAMICS WHI URODYNAMICS WHI Procedures Routine Incomplete bladder emptying Urinary urgency Urinary frequency Nocturia Ordered: 07/31/2023 [facility] Work Phone: Comment on above: Ordered: 07/31/2023 [facility] Immunizations Immunization Date Immunization Notes Care Provider Shante rai 08-17-2022 influenza virus vaccine, unspecified formulation Nelsy Wynnegand [employer]TUB OPERATOR Work Phone: [facility] 11-24-2021 Pfizer-BioNTech COVID-19 Vacc 30 MCG/0.3ML Intramuscular Suspension Eliceo Willams Work Phone: [place] [address] DO Work Phone: 08-19-2021 KENALOG - 10 mg Erica keys Other [facility] [employer] Other 05-11-2021 Pfizer-BioNTech COVID-19 Vacc 30 MCG/0.3ML Intramuscular Suspension Eliceo Willams Work Phone: [place] [address] DO Work Phone: 04-20-2021 Pfizer-BioNTech COVID-19 Vacc 30 MCG/0.3ML Intramuscular Suspension Eliceo Willams Work Phone: [facility] 250 DO Work Phone: 09-02-2020 influenza, injectabl e, quadrivalent, preservative free Eliceo Willams Work Phone: [facility] 250 DO Work Phone: 08-06-2020 influenza, injectabl e, quadrivalent, preservative free Eliceo Willams Work Phone: [place] [address] DO Work Phone: 06-22-2020 tetanus toxoid, redu nayeli diphtheria toxoid, and acellular pertussis vaccine, adsorbed Eliceo Willams Work Phone: [facility] [employer] 250 DO Work Phone: 02-01-2020 Toradol per 15 mg Annette Lazo papi Other [place] [employer] Other 07-15-2018 influenza, seasonal, injectable, preservative free Eliceo Willams Work Phone: [facility] Sahale [employer]acks[employer] 250 DO Work Phone: 07-14-2016 Rocephin 500 mg Annette Angeles r Other [employer] Other 05-12-2008 hepatitis B vaccine, adult dosage Eliceo Willams Work Phone: [facility] [employer] DO Work Phone: 04-11-2008 hepatitis B vaccine, adult dosage Eliceo Willams Work Phone: [facility] [employer] 250 DO Work Phone: Payers Date Payer Category Payer Self-pay [id number] 2021 Medicaid [employer] [id number] 2021-Present [phone] [address] [place] [address] Medicaid [id number] 2021 Medicaid [id number] [id number]. [id number] 1972 Unknown [id number] 2.16.840.1.669919.3.579.2.176 1972 Unknown [id number] 2.16.840.1.171408.3.579.2.593 1972 Unknown [id number] 2.16.840.1.491180.3.579.2.593 1972 Unknown [id number] 2.16.840.1.694986.3.579.2.593 1972 Unknown [id number] 2.16.840.1.253565.3.579.2.593 1972 Unknown [id number] 2.16.840.1.140529.3.579.2.593 1972 Unknown [id number] 2.16.840.1.419931.3.579.2.593 1972 Unknown [id number] 2.16.840.1.746183.3.579.2.593 1972 Unknown [id number] 2.16.840.1.379055.3.579.2.593 1972 Unknown [id number] 2.16.840.1.850552.3.579.2.593 1972 Unknown [id number] 2.16.840.1.195611.3.579.2.593 1972 Unknown [id number] 2.16.840.1.851184.3.579.2.593 1972 Unknown [id number] 2.16.840.1.215269.3.579.2.593 1972 Unknown [id number] 2.16.840.1.400299.3.579.2.593 1972 Unknown [id number] 2.16.840.1.937933.3.579.2.593 1972 Unknown [id number] 2.16.840.1.828746.3.579.2.593 1972 Unknown [id number] 2.16.840.1.800748.3.579.2.593 1972 Unknown [id number] 2.16.840.1.375551.3.579.2.593 1972 Unknown [id number] 2.16.840.1.700554.3.579.2.297 1972 Unknown [id number] 2.16.840.1.737341.3.579.2.297 1972 Unknown [id number] 2.16.840.1.878145.3.579.2.356 1972 Unknown [id number] 2.16.840.1.225332.3.579.2.356 1972 Unknown [id number] 2.16.840.1.641393.3.579.2.356 1972 Unknown [id number] 2.16.840.1.499737.3.579.2.1286 1972 Unknown [id number] 2.16.840.1.017027.3.579.2.1259 1972 Unknown [id number] 2.16.840.1.437390.3.579.2.1259 1972 Unknown [id number] 2.16.840.1.354033.3.579.2.1259 1972 Unknown [id number] 2.16.840.1.337323.3.579.2.1259 1972 Unknown [id number] 2.16.840.1.554388.3.579.2.1259 1972 Unknown [id number] 2.16.840.1.802685.3.579.2.1259 1972 Unknown [id number] 2.16.840.1.827797.3.579.2.1259 1972 Unknown [id number] 2.16.840.1.429151.3.579.2.1259 1959 Medicaid [id number] 1959 Unknown [id number] Unknown Unknown [facility] [id number] Unknown [id number] 2.16.840.1.073684.3.579.2.531 Unknown [id number] 2.16.840.1.500252.3.579.2.531 Unknown [id number] 2.16.840.1.445929.3.579.2.531 Unknown [id number] 2.16.840.1.641483.3.579.2.531 Social History Date Type Detail Facility Start: 10-08-2020 End: 09-01-2022 Tobacco smoking status VAIS Never smoked tobacco [facility] Start: 10-08-2020 End: 09-01-2022 Tobacco use and exposure Smokeless tobacco non-user [facility] Start: 01-04-2022 End: 09-27-2023 Alcohol intake Lifetime non-drinker (finding) [facility] Start: 10-08-2020 History SDOH Alcohol Frequency 1 [facility] Start: 1970 Sex Assigned At Female C [facility] Start: 01-21-2022 End: 07-26-2022 Exposure to SARS-CoV-2 (event) Not sure [facility] Start: 10-08-2020 End: 11-23-2020 Sex Assigned At [facility] Start: 10-08-2020 End: 11-23-2020 No alcohol use No alcohol use [facility] Comment on above: 3 TEA WEEK; How often to you hav e a drink containing alcohol? Never [facility] Average Number of Drinks Not on file [facility] Start: 07-28-2020 Gender identity Identifies as female gender (finding) [facility] Start: 07-03-2021 Sexual orientation Heterosexual (fin ding) [facility] Start: 06-05-2023 Tobacco smoking stat us NHIS Smoker (finding) [facility] Start: 1970 Sex Assigned At Not on file [facility] Start: 10-23-2023 Alcohol intake [facility]dr[facility] (finding[facility] Procedure Code Equipment Code Equipment Origin al Text Equipment Identifier Dates Fibertak Beardsley Self-Punching Knotless 2.6mm W/No 5 Suture [id number] Start: 10-14-2020 Fibertak [place] Knotless 2.6mm [id number] Start: 10-14-2020 Beardsley Swivelock C 4.75mm Biocomposite Peek 19.1mm Suture Closed Eyelet - [id number] Start: 10-14-2020 Sling Gynecare T vt Exact Gynecological Stress Urinary Incontinence - [id number] Start: 12-24-2021 DISC CERVICAL 13 [id number] MOBI-C FDA Start: 09-20-2017 DISC CERVICAL 13 [id number] MOBI-C FDA Start: 09-20-2017 DISC CERVICAL 13 [id number] MOBI-C FDA Start: 09-20-2017 DISC CERVICAL 13 [id number] MOBI-C FDA Start: 09-20-2017 Clinical Notes 10-27-2020 to 11-08-2023 Telephone Encounter - Patricia Zamora - 11/08/2023 3:40 PM ESTTelephone Encounter - Patricia Zamora - 11/08/2023 3:40 PM ESTTelephone Encounter - Hardik Poe LPN - 10/02/2023 4:00 PM EST Note Date & Type Note Facility 11-08-2023 Miscellaneous Notes NURTEC PENDING WITH TEJADA [id number] documented in this encounter [facility] 11-08-2023 Telephone encounter Note NURTEC PENDING WITH TEJADA [id number] [facility] 10-12-2023 Note Patient emailed stat ing she is finding another provider and will no longer be seen at this clinic. [facility] 10-12-2023 Note HNO ID: [id number] Author: Pam aWng MD Service: ? Author Type: Physician Type: [...] Video-assisted cystourethroscopy was performed using a 19 Ghanaian 70 and 30 degree rigid cystoscope with [...] urethra PLAN: See progress note from today [facility] 10-10-2023 Note HNO ID: [id number] Author: Pam Wang MD Service: ? Author [...] PFSH obtained by others. Pam Wang MD Ceramics Test Engineer offered: Patient declines. OBJECTIVE: BP 102/60 General: [...] would like to move forward with PNE. Silith.IO packet given to patient today to review. [...] which included preparing to see the patient, [id number] patient care, completing clinical documentation, obtaining and/or reviewing separately obtained history, performing a medically appropriate examination, counseling and educating the patient/family/caregiver, and communicating with other HCP (more content not included)... [facility] 10-02-2023 Miscellaneous Notes Patient was called to find out if there was another pharmacy to send her medication for Diflucan. Patient stated to disregard this medication. Patient stated that she does not need this medication now and that she will be visiting her PCP tomorrow (10/03/23) to address her sickness that she had before going to [place]. She states that she was going to [...] 150 MG TABLET MEREDITH: 09/27/2023 Doris Arias APRN.[facility] ([facility]) ASSESSMENT: Mary Leal is a 53 [...] Dr. Pam Wang documented in this encounter [facility] 09-27-2023 Note HNO ID: [id number] Author: Doris Arias APRN.TUB OPERATOR Service: ? Author Type: Nurse Practitioner Type: [...] ache and some malodorous urine. Patient in [place], unable to come in for visit. Has [...] urination is normal and pressure with urinating VENEER TAPING MACHINE OPERATOR: denies abnormal vaginal bleeding, no vaginal discharge [...] Making Level: 3 - Low Doris Arias APRN.TUB OPERATOR [facility] 09-27-2023 Miscellaneous Notes Scheduled 10/10/23 for Diagnostic [...] which included preparing to see the patient, jmzb-sx-bjea patient care, completing clinical documentation, obtaining and/or [...] Office will call to schedule cystoscopy. Urogynecology [facility] Main provided: Pam Wang Staff Physician, Department of Urogynecology and Pelvic Floor Disorders Worsening frequency and urgency of urination. Is a urine culture indicated? Please review/advise Lex Vieyra RN documented in this encounter [facility] 09-19-2023 Note Patient states she m istook this medication and has been off for 7 days. Restarting it at the 25mg dose. [facility] 09-11-2023 Note HNO ID: [id number] Author: Jairon Lai MD Service: ? Author Type: Physician Type: Progress Notes Filed: 09/11/2023 1:18 PM Note Text: [facility] [...] to void lower flow Jairon Lai MD [facility] 09-11-2023 Note HNO ID: [id number] Author: Phil Beckford MD Service: ? Author [...] from sling incision +/- discussion of [facility] 09-01-2023 Note Spoke with patient. Canceling valium script. Increasing ativan dose to bid with current bottle for mgmt of anxiety. Appoitment on Saturday 09/08 - she will bring in ativan to count tablets. She states she has 20 left as of today. She should have 4 left at that appointment. [facility] 09-01-2023 Note Mary has been hav [...] disponing Ativan at pharmacy in order to picking supervisor 1 weeks worth of Valium 5mg bid #16, to get her to her next appointment on 09/08. 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 Respiratory: Negative. Cardiovascular: Negative. Psychiatric/Behavioral: dysphoric mood, irritability, insomnia Date of Telehealth Visit: 08/23/23 Chief Complaint Patient presents with Telehealth Audio/video Visit [email or web address] The patient was notified that using 3rd green party telecommunication application (e.g., Quick Hang) is not HIPPA compliant and may carry some privacy risks. Yes The visit was conducted efsv-pa-hxnw with the use of audio and video [...] Wear CPAP/ Insp (more content not included)... [facility] 08-21-2023 Note [facility] 08-12-2023 Emergency department Note Discharge, follow up, referral, and prescription information reviewed and explained; all questions and concerns addressed. Patient A/Ox3 in NAD, resp. easy unlabored upon discharge, escorted to exit by staff. [facility] 08-12-2023 Emergency department Note Discharge, follow up, [...] gastroparesis, gastroenteritis, acute cholecystitis, pancreatitis, less likely IA The patient's initial and delta troponin are negative. EKG does not demonstrate any ischemic changes. Low suspicion for IA. Her urinalysis is negative for UTI. Urine [...] follow-up. She was instructed to call her job interviewer and PCP to schedule follow-up appointments. She was instructed to return to the emergency department if she has any new or worsening symptoms. Patient agreeable plan of care. Return precautions discussed at bedside. Spoke with Dr. Salmon regarding patient. Physician to complete their own physical exam and evaluation. Collaboration performed between this SHIRRER and physician regarding patient's plan of care. [...] following orders were created for panel order [place] Draw. Procedure Abnormality Status --------- ------ Gold Top[[id number]] Final result LIGHT BLUE TOP[[id number]] Final result Dark Green Top[[id number]] Final result Please view results for these [...] PWD. NAD noted. documented in this encounter [facility] 08-12-2023 Hospital Discharge instructions Lev Ritter APRN [...] cannot be sent through Care Everywhere.Abdominal Pain (Kuwaiti Tunisian)documented in this encounter [facility] 08-12-2023 Emergency department Note Report to Les GAMBINO [facility] 08-12-2023 Physician Emergency department Note Images from [...] gastroparesis, gastroenteritis, acute cholecystitis, pancreatitis, less likely IA The patient's initial and delta troponin are negative. EKG does not demonstrate any ischemic changes. Low suspicion for IA. Her urinalysis is negative for UTI. Urine [...] follow-up. She was instructed to call her job interviewer and PCP to schedule follow-up appointments. She was instructed to return to the emergency department if she has any new or worsening symptoms. Patient agreeable plan of care. Return precautions discussed at bedside. Spoke with Dr. Salmon regarding patient. Physician to complete their own physical exam and evaluation. Collaboration performed between this SHIRRER and physician regarding patient's plan of care. [...] following orders were created for panel order [place] Draw. Procedure Abnormality Status --------- ------ Gold Top[[id number]] Final result LIGHT BLUE TOP[[id number]] Final result Dark Green Top[[id number]] Final result Please view results for these tests on the individual orders. GOLD TOP LIGHT BLUE TOP DARK GREEN TOP TROPONIN I Records reviewed: Urogynecology telemedicine visit 08/07/2023 ENT visit 07/11/2023 Family medicine visit 07/06/2023 Lev Ritter APRN CNP 08/12/23722 [facility] 08-12-2023 Emergency department Note Emily at bedside [facility] 08-12-2023 Emergency department Triage note Ambulates to triage with C/O sudden epigastric gnawing, burning pain that woke her from sleep. Also reports wheezing. States nausea. Denies fever. Alert. Respirations easy and unlabored. Skin PWD. NAD noted. [facility] 08-07-2023 Note HNO ID: [id number] Author: Pam Wang MD Service: ? Author [...] no Pain: no Abnormal Vaginal Discharge: no 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 She has no history of an abnormal mammogram with cysts on US LMP: No LMP recorded. Patient has had a hysterectomy.; Menopause 3 years ago; hysterectomy in 2015: Menstrual history: NA; Deliveries: I have confirmed and edited as necessary, the PFSH obtained by others. Pam Wang MD Ceramics Test Engineer offered: Patient declines. OBJECTIVE (Virtual) There were [...] which included preparing to see the patient, xaeh-jb-jetw patient care, completing clinical documentation, obtaining and/or reviewing separately obtained history, counseling and educating the patient/family/caregiver, ordering medications, tests, or procedures, and communicating with other HCPs (not separately reported). Pam Wang MD [facility] 07-31-2023 Note HNO ID: [id number] Author: Nelsy Chávez APRN.TUB OPERATOR Service: ? Author Type: Nurse Practitioner Type: [...] new Pain: no Abnormal Vaginal Discharge: no 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 She has no history of an abnormal mammogram with cysts on US LMP: No LMP recorded. Patient has had a hysterectomy.; Menopause 3 years ago; hysterectomy in 2015: Menstrual history: NA; Deliveries: I have confirmed and edited as necessary, the PFSH obtained by others. Nelsy Chávez APRN.TUB OPERATOR Ceramics Test Engineer offered: Patient declines. OBJECTIVE: There were no [...] for now d/t side effects Nelsy Chávez APRN.TUB OPERATOR I spent a total of 45 minutes on the date of the service which included preparing to see the patient, owwr-ci-kvot patient care, completing clinical documentation, performing a medically appropriate examination, counseling and educating the patient/family/caregiver and ordering medications, tests, or procedures. [facility] 07-31-2023 History of Present illness Narrative Female Pelvic Medicine & Reconstructive Surgery Follow-Up Mary Leal is a 53 year old female, who presents for a follow-up of Laparoscopic proctopexy and diverting loop ileostomy (Dr. Obrien) with concurrent Anterior olporrhaphy, Posterior colporrhaphy, Placement of retropubic midurethral sling, Perineorrhaphy (Dr. aWng) 12/24/2021. History since last visit: Has had [...] new Pain: no Abnormal Vaginal Discharge: no 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 She has no history of an abnormal mammogram with cysts on US LMP: No LMP recorded. Patient has had a hysterectomy.; Menopause 3 years ago; hysterectomy in 2015: Menstrual history: NA; Deliveries: I have confirmed and edited as necessary, the PFSH obtained by others. Nelsy Chávez APRN.TUB OPERATOR Ceramics Test Engineer offered: Patient declines. OBJECTIVE: There were no [...] which included preparing to see the patient, gbrr-xu-rqik patient care, completing clinical documentation, performing a medically appropriate examination, counseling and educating the patient/family/caregiver and ordering medications, tests, or procedures. documented in this encounter [facility] 07-25-2023 Note Patient: Mary arriaza Procedure Summary Date: 07/25/23 Room / Location: [facility] [place] Main OR Anesthesia Start: 1105 Anesthesia Stop: [...] per anesthesia protocol. No notable events documented. [facility] 07-25-2023 Note Patient: Mary arriaza Procedure Summary Date: 07/25/23 Room / Location: [facility] Main OR Anesthesia Start: 1105 Anesthesia Stop: Procedures: EGD DIAGNOSTIC COLONOSCOPY Diagnosis: Gastroesophageal reflux disease without esophagitis Nausea Diarrhea, unspecified type Scheduled Providers: Matteo Quinones MD; Blanquita Ramirez MD Responsible Provider: Blanquita Ramirez MD Anesthesia Type: MAC ASA Status: 3 Anesthesia Post Transport [facility] Patient Monitor: direct observation Transport: uneventful Patient condition is: stable [facility] 07-25-2023 Note Patient: Mary arriaza Procedure Information Date/Time: 07/25/23 1100 Scheduled providers: Matteo Quinones MD; Blanquita Ramirez MD Procedures: EGD DIAGNOSTIC COLONOSCOPY Location: [facility] Main OR Relevant Problems Anesthesia (+) CHUCKIE [...] who. Plan discussed with resident, CAA and PRETZEL TWISTING MACHINE OPERATOR. Additional Equipment Requests [facility] 07-17-2023 Note Medications to take AM day of procedure with sips water only: Atenolol Ropinirole inhaler Medication Hold instructions: NSAIDs (Motrin,Aleve): 5 days prior to procedure Vitamins/Supplements: 5 days prior to procedure IF YOU ARE GOING HOME AFTER YOUR SURGERY OR PROCEDURE, FOR YOUR SAFETY, YOUR SURGERY WILL BE CANCELLED IF BOTH OF THE FOLLOWING ARE NOT AVAILABLE: An adult dedicated regional driver over the age of 18, that [...] lenses. Do not wear perfume, make-up, nail russian, or lotions on the day of your [...] need to make any changes, please call [phone]. Notify your surgeon if you develop any illness such as a cold, cough, fever, sore throat or vomiting between now and your surgery. Thank you for entrusting us with your care. 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 Respiratory: Negative. Cardiovascular: Negative. Psychiatric/Behavioral: Negative. Date of Telehealth Visit: 06/08/23 Chief Complaint Patient presents with Telehealth Audio/video Visit [email or web address] The patient was notified that using 3rd green party telecommunication application (e.g., Quick Hang) is not HIPPA compliant and may carry some privacy risks. Yes The visit was conducted kisu-ss-syxo with the use of audio and video technology [employer] between patient and provider for a virtual [...] dictated by speech recognition. Minor errors in cardiothoracic icu rn may be present. Information on after hour access to care was provided - encouraged to use 911, [facility], their [facility] crisis hotline, or the nearest emergency room in the event of a crisis. Also informed of 24 hour access at [facility] and if in crisis after regular business hours may call the hospital ladle operator [phone]; and ask to speak with the vice president of talent management on-call. Patient Rights and Responsibilities were discussed, [...] get back t (more content not included)... [facility] 05-31-2023 Note [facility] Gastroenterolog y New Patient Visit - History & Physical CHIEF COMPLAINT Chief Complaint Patient presents with Nausea GERD Abdominal Pain New Patient HISTORY OF PRESENT ILLNESS: Mary Leal is a 53 y.o. female new patient referred by Dr. Willams for gastroparesis, GERD, and abdominal pain. Past medical history includes gastroparesis ( was evaluated by DR Masters at [facility]) and total abdominal colectomy with [...] Abnormal mammogram Arthritis (more content not included)... [facility] 05-22-2023 Note You are not granted access to view this sensitive note. [facility] 05-17-2023 Note Psych Progress Note Time In: 1245 Time Out: 110 HPI Present at Visit: Mary Location of Service: Office Review of Systems Constitutional: Negative. Respiratory: Negative. Cardiovascular: Negative. Psychiatric/Behavioral: Negative. Date of Telehealth Visit: 05/17/23. Chief Complaint Patient presents with Telehealth Audio/video Visit [email or web address] The patient was notified that using 3rd green party telecommunication application (e.g., Quick Hang) is not HIPPA compliant and may carry some privacy risks. Yes The visit was conducted bkwz-ic-zqgj with the use of audio and video technology [employer] between patient and provider for a virtual [...] dictated by speech recognition. Minor errors in cardiothoracic icu rn may be present. Information on after hour access to care was provided - encouraged to use 911, [facility], their county crisis hotline, or the nearest emergency room in the event of a crisis. Also informed of 24 hour access at [facility] and if in crisis after regular business hours may call the hospital ladle operator [phone]; and ask to speak with the vice president of talent management on-call. Patient Rights and Responsibilities were discussed, [...] alternatives to tr (more content not included)... [facility] 05-17-2023 Note You are not granted access to view this sensitive note. [facility] 04-26-2023 Evaluation note Encounter Date Diagnosis [...] Above note written by Wanda Yang LPN, Commercial Reporter. Edited and approved by Dr. Annette Harris MD. [employer] Other 06-12-2023 NoteYou are not granted access to view this sensitive note.[facility]06-09-2023 NoteYou are not granted access to view this sensitive note.[facility] 04-11-2023 Miscellaneous Notes* Telephone Encounter - Serenity Joseph MA - 04/11/2023 10:19 AM EDT MEREDITH=10/11/22 Spoke with patient she does need a refill Medication pended please file Rx request if appropriate Patient and pharmacy verified [facility] NoteYou are not granted access to view this sensitive note.[facility]05-15-2023 Miscellaneous Notes* Telephone Encounter - Lilli Goldberg - 03/20/2023 2:50 PM EDT Should patient follow up via virtual visit to discuss further? * Telephone Encounter - Ban Benton LPN - 03/20/2023 10:20 AM EDT Patient's stool tests came back normal. Ban Benton LPN [facility] NoteYou are not granted access to view this sensitive note.[facility]05-01-2023 NoteYou are not granted access to view this sensitive note.[facility]04-24-2023 NoteYou are not granted access to view this sensitive note.[facility]04-18-2023 NotePROCEDURE: XR ANKLE RT MIN 3 [...] Electronically authenticated by: ZAIDA ACOSTA Date: 2023-02-21 10:15[facility]04-18-2023 NotePROCEDURE: XR ANKLE RT MIN 3 VIEWS, [...] Electronically authenticated by: ZAIDA ACOSTA Date: 2023-02-21 10:15[facility]04-17-2023 NoteYou are not granted access to view this sensitive note.[facility]04-13-2023 NotePsych Progress Note Time In: 2 Time Out: 2:25 HPI Present at Visit: Mary Location of Service: Office Review of Systems Constitutional: Negative. Respiratory: Negative. Cardiovascular: Negative. Psychiatric/Behavioral: Negative. Date of Telehealth Visit: 02/20/2023 Chief Complaint Patient presents with Telehealth Audio/video Visit [email or web address] The patient was notified that using 3rd green party telecommunication application (e.g., Quick Hang) is not HIPPA compliant and may carry some privacy risks. Yes The visit was conducted tqao-np-tiup with the use of audio and video technology [employer] between patient and provider for a virtual [...] dictated by speech recognition. Minor errors in cardiothoracic icu rn may be present. Information on after hour access to care was provided - encouraged to use 911, [facility], their [facility] crisis hotline, or the nearest emergency room in the event of a crisis. Also informed of 24 hour access at [facility] and if in crisis after regular business hours may call the hospital ladle operator [phone]; and ask to speak with the vice president of talent management on-call. Patient Rights and Responsibilities were discussed, [...] as all medications m (more content not included)...[facility]04-10-2023 Note Attestation signed by Grant Biswas, PhD at 02/16/2023 2:57 PM This encounter qualifies to be billed under ???Direct Supervision??? because this patient was met by a licensed clinical psychologist upon starting treatment services with the provider who is a clinical psychology unit coordinator. The licensed clinical psychologist providing supervision for [...] Clinician in office Patient Location: Via telehealth [facility] Telehealth Information Telehealth Mode: [email or web address] (video + audio) The patient was notified that using 3rd green party telecommunication application is not HIPAA compliant and may carry some privacy risks: Yes Video Consent Date of Telehealth Visit: 02/13/23 The patient was notified that using 3rd green party telecommunication application (e.g. Quick Hang) is not HIPAA compliant and may carry some privacy risks: Yes This visit was conducted ysmx-wg-umgq with the use of audio and video technology using [employer] between patient and the provider for a virtual visit. Verbal consent to provide and bill this service was obtained on: 02/13/23 No signature was obtained due to the COVID-19 pandemic. SUBJECTIVE CC: Chief Complaint Patient presents with Therapy HPI: Mary Leal is a 52 y.o. female presenting to the [facility] Psychiatry Clinic on 02/13/23 for management of [...] (ISP): Provider: Carmen Dorsey M.A. (clinical psychology unit coordinator) Frequency: 1-4 weeks Patient Needs: eleviate anxiety, [...] oriented to person, orien (more content not included)...[facility]04-03-2023 Note Attestation signed by Grant Biswas, PhD at 02/06/2023 9:45 AM This encounter qualifies to be billed under ???Direct Supervision??? because this patient was met by a licensed clinical psychologist upon starting treatment services with the provider who is a clinical psychology unit coordinator. The licensed clinical psychologist providing supervision for [...] in office Patient Location: Via telehealth in [place] Telehealth Information Telehealth Mode: [email or web address] (video + audio) The patient was notified that using 3rd green party telecommunication application is not HIPAA compliant and may carry some privacy risks: Yes Video Consent Date of Telehealth Visit: 02/06/23 The patient was notified that using 3rd green party telecommunication application (e.g. Quick Hang) is not HIPAA compliant and may carry some privacy risks: Yes This visit was conducted yakj-gr-ouvn with the use of audio and video technology using [employer] between patient and the provider for a virtual visit. Verbal consent to provide and bill this service was obtained on: 02/06/23 No signature was obtained due to the COVID-19 pandemic. SUBJECTIVE CC: Chief Complaint Patient presents with Therapy HPI: Mary Leal is a 52 y.o. female presenting to the [facility] Psychiatry Clinic on 02/06/23 for management of depression and anxiety. Since the last visit, the patient's condition has remained stable. Session activities included: symptom monitoring, psychoeducation on obsessive thoughts/compulsive behaviors. Pt stated she has had difficulty sleeping the past week and feels tired. Pt regularly reports sleep difficulties. She stated she saw her SECURITY INCIDENT RESPONSE ENGINEER and they discussed stopping her trazadone to see if that helps. Pt stated she did not get any sleep the nights she did not take the trazadone and thus started taking it again. She stated she will message her SECURITY INCIDENT RESPONSE ENGINEER to let her know. Pt stated she [...] (ISP): Provider: Carmen Dorsey M.A. (clinical psychology unit coordinator) Frequency: 1-4 weeks Patient Needs: eleviate anxiety, [...] normal Build/Stature: N/A Gait (more content not included)...[facility]03-30-2023 NotePsych Progress Note Time In: 9:38 [...] dictated by speech recognition. Minor errors in cardiothoracic icu rn may be present. Information on after hour access to care was provided - encouraged to use 911, [facility], their [facility] crisis hotline, or the nearest emergency room in the event of a crisis. Also informed of 24 hour access at [facility] and if in crisis after regular business hours may call the hospital ladle operator [phone]; and ask to speak with the vice president of talent management on-call. Patient Rights and Responsibilities were discussed, [...] needed between scheduled f (more content not included)...[facility] 01-31-2023 NotePROCEDURE: XR FOOT RT MIN [...] Electronically authenticated by: ZAIDA ACOSTA Date: 2023-01-31 11:55[facility]03-20-2023 Note Attestation signed by Grant Biswas, PhD at 01/23/2023 11:30 AM This encounter qualifies to be billed under ???Direct Supervision??? because this patient was met by a licensed clinical psychologist upon starting treatment services with the provider who is a clinical psychology unit coordinator. The licensed clinical psychologist providing supervision for [...] in office Patient Location: Via telehealth in [place] Telehealth Information Telehealth Mode: Baby.com.br (video + audio) The patient was notified that using 3rd green party telecommunication application is not HIPAA compliant and may carry some privacy risks: Yes Video Consent Date of Telehealth Visit: 01/23/23 The patient was notified that using 3rd green party telecommunication application (e.g. Quick Hang) is not HIPAA compliant and may carry some privacy risks: Yes This visit was conducted oyiy-fl-bbpu with the use of audio and video technology using Kustom Codes between patient and the provider for a virtual visit. Verbal consent to provide and bill this service was obtained on: 01/23/23 No signature was obtained due to the COVID-19 pandemic. SUBJECTIVE CC: Chief Complaint Patient presents with Therapy HPI: Mary Leal is a 52 y.o. female presenting to the [facility] on 01/23/23 for management of [...] to live with their older sister in [place]. Pt has met with an assistant district attorney and is securing the necessary paperwork. Current [...] (ISP): Provider: Carmen Dorsey M.A. (clinical psychology unit coordinator) Frequency: 1-4 weeks Patient Needs: eleviate anxiety, [...] time Attention and Concent (more content not included)...[facility]03-16-2023 Miscellaneous Notes* Telephone Encounter - Jennie Moreno RN - 01/19/2023 2:17 PM EDT Please review and advise patient. documented in this encounterSelect [facility]03-13-2023 Miscellaneous Notes* Telephone Encounter - Mounika Hernandez PA-C - 01/16/2023 1:08 PM EDT Patient was scheduled for virtual PACC appt at 1300 today. Patient did not check in for visit. Called patient at [phone] to see if they needed any assistance logging in and left voicemail. This message routed to PACC schedulers to contact patient to reschedule PACC appt. Mounika Hernandez PA-C January 16, 2023 1:09 PM documented in this encounterSelect Medical Specialty [facility], [facility]03-13-2023 History and physical note * Mouniak Hernandez PA-C - 01/16/2023 1:00 PM EDT This is a virtual visit using Omegawave video visit. It required patient-provider interaction for themedical decision making as documented below. I have communicated my name and active licensure. The patient's identity and physical location wereverified at the time of this visit. Either the patient or their legal environmental marketing representative has been informed of the risks and benefits of and alternatives to treatment through a remote evaluation and consents to proceed with the evaluation remotely. Surgeon: Winston Hannah DO Type of surgery: GEN SURG: POP Patient scheduled for surgery on 02/08/23 . Surgery Location: [facility] Diagnosis: Preop examination (primary encounter diagnosis) Nausea [...] in the AM and 4 mg PM byqzuhtpfhv-xleteqljc-eisjfmsn (TRELEGY ELLIPTA) 100-62.5-25 mcg Inhale 1 Puff [...] 16, 2023 12:36 PM documented in this encounterSelect Medical Specialty [facility], [facility]03-13-2023 Instructions* Patient Instructions* Mounika Hernandez PA-C - 01/16/2023 12:38 PM EDT PATIENT PREOPERATIVE INSTRUCTIONS Winston Hannah DO has scheduled you for your procedure at this surgery center: [facility]: [phone] -- [id number], [place] [address]. Please read below carefully for your personalized [...] Procedures: - YOU MUST HAVE A RESPONSIBLE STAFFING ANALYST TAKE YOU HOME. A MECHANICAL RESEARCH ENGINEER OR SUPERVISOR WATERPROOFING CANNOT BE MADE A RESPONSIBLE STAFFING ANALYST. - We recommend that a responsible person [...] Advance Directive, please fax a copy to [phone] or email to for it to be [...] day. Mounika Hernandez PA-C documented in this encounterSelect Medical [facility]03-08-2023 Miscellaneous Notes* Telephone Encounter - Berta Ann RN - 01/11/2023 9:47 AM EST Procedure pended for 02/08/23. Pt aware of need for PACC. Pre-op instructions reviewed, will send to pt's MC, per pt request. Postop appt scheduled. No other questions at this time. Berta HENSON, RN Specialty Cloth Washer documented in this encounterSelect Medical Specialty [facility]03-07-2023 NoteHNO ID: [id number] Author: Winston Hannah, DO Service: ? Author Type: Physician Type: Progress Notes Filed: 01/10/2023 6:08 PM Note Text: Digestive Disease AND Surgery Sigel Gastroparesis/Dysmotility Follow Up This encounter was provided [...] of care. NAME: Mary Leal CLINIC NO: [id number] CHIEF COMPLAINT Idiopathic Gastroparesis HISTORY OF PRESENT [...] thin barium without ob (more content not included)...[facility] 01-10-2023 History of Present illness Narrative* Winston Hannah, - 01/10/2023 9:09 AM EST Images from the original note were not included. Digestive Disease & Surgery Sigel Gastroparesis/Dysmotility Follow Up This encounter was provided [...] of care. NAME: Mary Leal CLINIC NO: [id number] CHIEF COMPLAINT Idiopathic Gastroparesis HISTORY OF PRESENT [...] Normal gastric transit Normal small bowel transit [id number] transit in the distal bowel consistent delay [...] (FLONASE) 50 mcg/actuation nasal spray Use 1 [place] in each nostril once daily. carBAMazepine XR [...] THE LUNGS every 4 hours if needed cjeyjlcdgbr-yfehfdoht-mylowmiv (TRELEGY ELLIPTA) 100-62.5-25 mcg Inhale 1 Puff [...] dialysis. No history of symptoms or problems. VENEER TAPING MACHINE OPERATOR: Negative for abnormal vaginal bleeding, abnormal vaginal [...] and plan of care. documented in this encounterSelect Medical Specialty [facility]03-03-2023 [facility] Progress Note Time In: 2:30 PM Time Out: 3:00 PM Present At Visit: Patient Clinician Location: Clinician via telehealth Patient Location: Meeting remotely by telephone today (patient unable to connect by video). Subjective CC: Chief Complaint Patient presents with Telehealth Audio/video Visit HPI: Mary Leal is a 52 y.o. female presenting to the [facility] on 01/06/2023 for medication management [...] week. Annette Swanson DO (more content not included)...[facility] 01-02-2023 NotePsychiatry Psychotherapy Progress Note Time In: 11:00 am Time Out: 11:53 am Present At Visit: Patient Clinician Location: Clinician in office Patient Location: Via telehealth in [place] Telehealth Information Telehealth Mode: Webex (video + audio) The patient was notified that using 3rd green party telecommunication application is not HIPAA compliant and may carry some privacy risks: Yes Video Consent Date of Telehealth Visit: 01/02/23 The patient was notified that using 3rd green party telecommunication application (e.g. Quick Hang) is not HIPAA compliant and may carry some privacy risks: Yes This visit was conducted ijdh-of-zwbq with the use of audio and video technology using Stellar Biotechnologiesex between patient and the provider for a virtual visit. Verbal consent to provide and bill this service was obtained on: 01/02/23 No signature was obtained due to the COVID-19 pandemic. SUBJECTIVE CC: Chief Complaint Patient presents with Therapy HPI: Mary Leal is a 52 y.o. female presenting to the [facility] on 01/02/23 for management of depression and anxiety. Since the last visit, the patient's condition has improved Session activities included: reviewed and discussed acts of self-care and value-focused behaviors. Pt stated she had an epiphany last week and made the decision to have her niece and nephew live with their sister in [place]. Pt stated she is done raising kids [...] with her children before they go to [place]. Pt acknowledged she was not looking forward [...] (ISP): Provider: Carmen Dorsey M.A. (clinical psychology unit coordinator) Frequency: 1-4 weeks Patient Needs: eleviate anxiety, [...] Disp: , Rfl: alend (more content not included)...[facility] 12-29-2022 Miscellaneous Notes* Addendum Note - Yoni Tuttle MD - 12/29/2022 3:37 PM ESTAddended by: YONI TUTTLE MD on: 12/29/2022 03:37 PM Modules accepted: Orders documented in this encounterSelect Medical Specialty [facility], [facility]02-20-2023 NoteHNO ID: [id number] Author: RT Елена(R) Service: Radiology Author Type: [...] BY: RT Елена(R) December 26, 2022 3:17 [facility]02-20-2023 History of Present illness Narrative* RT [...] 26, 2022 3:17 PM documented in this encounterSelect Medical Specialty [facility], [facility]02-17-2023 Miscellaneous Notes* Telephone Encounter - Uziel Serrano RN - 12/23/2022 4:36 PM EST Message being addressed in another encounter that was forwarded to provider documented in this encounterSelect Medical Specialty [facility], [facility]02-16-2023 NoteHNO ID: [id number] Author: Winston Hannah DO Service: ? Author Type: Physician Type: Progress Notes Filed: 12/22/2022 9:32 AM Note Text: Digestive Disease AND Surgery Sigel Gastroparesis/Dysmotility Follow Up This encounter was provided [...] completed esophagram NAME: Mary Leal CLINIC NO: [id number] CHIEF COMPLAINT Idiopathic Gastroparesis HISTORY OF PRESENT ILLNESS Mayr Leal is a 52 year old female [...] chicken spaghetti etc. Duration of symptoms (months): 1648-1483 Weight changes in last 3 months: Stable [...] transit. WGTT: 24:32 Normal (more content not included)...[facility] 12-22-2022 History of Present illness Narrative* Winston Hannah, DO - 12/22/2022 8:52 AM EST Images from the original note were not included. Digestive Disease & Surgery Sigel Gastroparesis/Dysmotility Follow Up This encounter was provided [...] completed esophagram NAME: Mary Leal CLINIC NO: [id number] CHIEF COMPLAINT Idiopathic Gastroparesis HISTORY OF PRESENT [...] chicken spaghetti etc. Duration of symptoms (months): 3971-1978 Weight changes in last 3 months: Stable [...] Normal gastric transit Normal small bowel transit [id number] transit in the distal bowel consistent delay [...] (FLONASE) 50 mcg/actuation nasal spray Use 1 [place] in each nostril once daily. carBAMazepine XR [...] THE LUNGS every 4 hours if needed twefrcxajsu-roelusdmr-vntjxhmq (TRELEGY ELLIPTA) 100-62.5-25 mcg Inhale 1 Puff [...] dialysis. No history of symptoms or problems. VENEER TAPING MACHINE OPERATOR: Negative for abnormal vaginal bleeding, abnormal vaginal [...] and plan of care. documented in this encounterSelect Medical Specialty [facility]02-15-2023 NotePROCEDURE: XR FOOT RT MIN 3 VIEWS [...] Electronically authenticated by: ZAIDA ACOSTA Date: 2022-12-21 12:24[facility]02-09-2023 NoteHNO ID: [id number] Author: Mary Obrien MD Service: ? Author [...] in the AM and 4 mg PM gvsyqolainy-uvyhiyvjj-usnccwsp (TRELEGY ELLIPTA) 100-62.5-25 mcg Inhale 1 Puff [...] which included preparing to see the patient, nxyg-ns-hdtp patient care, co (more content not included)...[facility]02-09-2023 History of Present illness Narrative* Mary Obrien MD - 12/15/2022 8:40 AM EST COLORECTAL SURGERY December 15, 2022 Mary Keys Elvis Virtual Visit Chief Complaint: follow up/ [...] in the AM and 4 mg PM pqjztbcxqfd-mzovfrdql-cdyqozco (TRELEGY ELLIPTA) 100-62.5-25 mcg Inhale 1 Puff [...] which included preparing to see the patient, fljy-dw-qrmj patient care, completing clinical documentation, obtaining and/or reviewing separately obtained history, counseling and educating the patient/family/caregiver, ordering medications, quincy ts, or procedures, communicating with other HCPs (not separately reported), independently interpreting results (not separately reported), communicating results to the patient/family/caregiver, and care coordination (not separately reported). Mary Obrien MD Colorectal Surgery documented in this encounterSelect Medical Specialty [facility]02-08-2023 Miscellaneous Notes* Telephone Encounter - Patricia Benton RN - 12/14/2022 5:19 PM EST Several attempts to reach pt unsuccessful - MC sent. * Telephone Encounter - Barber Marie - 12/02/2022 8:39 AM EST SLEEP PHONE Name of caller: Maryjonathan Leal Relationship to patient : Self In-state or gxn-qv-mizwa patient: In-State Was permission obtained from patient? Yes Patient identified by Name and Date of . ( Mary Leal, 1970). Yes Reason for Call : Patient said her and Patricia was chatting through my chart and Patricia calledher about 5:15 yesterday. Number to return call [phone] Okay to leave a message ? Yes Last office visit 10/14/[address] Kusum vines Next office visit 01/13/[address] Tuttle virtual documented in this encounterSelect Medical Specialty [facility]02-06-2023 NotePsychiatry Psychotherapy Progress Note Time In: 8:30 am Time Out: 9:25 am Present At Visit: Patient Clinician Location: Clinician in office Patient Location: Via telehealth in [place] Telehealth Information Telehealth Mode: Webex (video + audio) The patient was notified that using 3rd green party telecommunication application is not HIPAA compliant and may carry some privacy risks: Yes Video Consent Date of Telehealth Visit: 12/12/22 The patient was notified that using 3rd green party telecommunication application (e.g. Quick Hang) is not HIPAA compliant and may carry some privacy risks: Yes This visit was conducted vate-md-frxp with the use of audio and video technology using Kustom Codes between patient and the provider for a virtual visit. Verbal consent to provide and bill this service was obtained on: 12/12/22 No signature was obtained due to the COVID-19 pandemic. SUBJECTIVE CC: Chief Complaint Patient presents with Therapy HPI: Mary Leal is a 52 y.o. female presenting to the [facility] on 12/12/22 for management of [...] (ISP): Provider: Carmen Dorsey M.A. (clinical psychology unit coordinator) Frequency: 1-4 weeks Patient Needs: eleviate anxiety, [...] of water, on an (more content not included)...[facility]02-06-2023 Miscellaneous Notes* Telephone Encounter - See [...] and follow up testing return call to [phone] documented in this encounterSelect Medical Specialty [facility], [facility]02-03-2023 NoteDepartment of Psychiatry Outpatient Progress Note Time In: 3 PM Time Out: 3:30 PM Present At Visit: Patient Clinician Location: Clinician in office Patient Location: In office Subjective CC: Chief Complaint Patient presents with Telehealth Audio/video Visit [email or web address] HPI: Mary Leal is a 52 y.o. female presenting to the [facility] on 12/09/21. ' Between visits [...] teratogenicity, and medication (more content not included)... [facility]02-03-2023 Miscellaneous Notes* Telephone Encounter - MALAIKA [...] patient Summary: As noted Concerns: Procedure results Cloth Washer plan for next outreach: Will follow up Signature Nelsy Pepe RN December 08, 2022 documented in this encounterSelect Medical Specialty Hospital [facility], [facility]01-30-2023 Nurse Note* Lisa Contreras RN - 12/05/2022 1:05 PM EST [facility] ENDOSCOPY PRE PROCEDURE CALL Akiko. I'm calling from [facility] endoscopy to provide you with the information for your surgery/procedure tomorrow. Spoke to: Patient CONFIRM Procedure Planned with patient:Esophagogastroduodenoscopy(EGD) with or without biopies based on clinical findings, removal of polyps or lesions Are you familiar with where [facility] is located?yes Address [facility] Patient instructed to enter through the main hospital entrance off [address] through the revolving doors and check in at the main desk with your dedicated regional driver's license and insurance card.yes When anesthesia or sedation is being given: Patient instructed you must have an adult dedicated regional driver because you will not be able to work or drive for the rest of the day after your test.yes Can you please confirm the name and relationship of your dedicated regional driver. tbd What is the best number for your dedicated regional driver to be reached at tomorrow for updates? tbd Your dedicated regional driver is allowed to wait here with [...] Do not wear makeup, lotion, or finger russian. yes Patient instructed: Please bring a list [...] given Any barriers to Patient learning (confusion? Artifacts Conservator needed?): Patient/Patient Brusher Warp responded appropriately on phone. If patient needs to reschedule please call: [phone] [facility] phone number: [phone] Type of instruction given: Verbal by telephone contact. documented in this encounterSelect Medical Specialty [facility]01-27-2023 Nurse Note* Isra Harman RN - 12/02/2022 10:48 AM EST [facility] ENDOSCOPY PRE PROCEDURE CALL Akiko. I'm calling from [facility] endoscopy to provide you with the information for your surgery/procedure tomorrow. Spoke to: Patient CONFIRM Procedure Planned with patient: Are you familiar with where [facility] is located?yes Address [address] [facility] Patient instructed to enter through the main hospital entrance off [address] at [address] through the revolving doors and check in at the main desk with your dedicated regional driver's license and insurance card.yes When anesthesia or sedation is being given: Patient instructed you must have an adult dedicated regional driver because you will not be able to work or drive for the rest of the day after your test.yes Can you please confirm the name and relationship of your dedicated regional driver. Rich What is the best number for your dedicated regional driver to be reached at tomorrow for updates? [phone] Your dedicated regional driver is allowed to wait here with [...] must be done on Monday.) Did you picking supervisor your bowel prep pt calling office for [...] Do not wear makeup, lotion, or finger russian. yes Patient instructed: Please bring a list [...] given Any barriers to Patient learning (confusion? Artifacts Conservator needed?): Patient/Patient Brusher Warp responded appropriately on phone. If patient needs to reschedule please call: [phone] [facility] phone number: [phone] Type of instruction given: Verbal by telephone contact. documented in this encounterSelect Medical Specialty [facility]01-26-2023 NotePROCEDURE: XR FOOT RT MIN 3 VIEWS, [...] Electronically authenticated by: ZAIDA ACOSTA Date: 2022-12-01 11:42[facility]01-26-2023 NotePROCEDURE: XR FOOT RT MIN 3 VIEWS, [...] Electronically authenticated by: ZAIDA ACOSTA Date: 2022-12-01 11:42[facility]01-25-2023 NoteHNO ID: [id number] Author: Isra Masters, DO Service: ? Author [...] in the AM and 4 mg PM ywwoesdvppc-vodtxjuki-hleyuaaa (TRELEGY ELLIPTA) 100-62.5-25 mcg Inhale 1 Puff [...] no edema RESPIRATORY: No dyspnea : neg VENEER TAPING MACHINE OPERATOR: neg The remainder of the review of [...] SIGMOIDOSCOPY 2. Nausea R11.0 Isra Masters DO 11/30/2022[facility]01-25-2023 History of Present illness Narrative* Isra Masters DO - 11/30/2022 1:35 PM EST FOLLOW UP [...] in the AM and 4 mg PM xqhlsuleavh-gvlgvsaat-yhdvhvyr (TRELEGY ELLIPTA) 100-62.5-25 mcg Inhale 1 Puff [...] no edema RESPIRATORY: No dyspnea : neg VENEER TAPING MACHINE OPERATOR: neg The remainder of the review of [...] Isra Masters DO 11/30/2022 documented in this encounterSelect Medical Specialty [facility]01-25-2023 NotePsychiatry Psychotherapy Progress Note Time In: 8:30 AM Time Out: 9:13 AM Present At Visit: Patient Clinician Location: Clinician via telehealth Patient Location: Via telehealth in [place] Telehealth Information Telehealth Mode: Webex (video + audio) The patient was notified that using 3rd green party telecommunication application is not HIPAA compliant and may carry some privacy risks: Yes Video Consent Date of Telehealth Visit: 11/30/22 The patient was notified that using 3rd green party telecommunication application (e.g. Quick Hang) is not HIPAA compliant and may carry some privacy risks: Yes This visit was conducted fjpv-bd-ayzh with the use of audio and video technology using Kustom Codes between patient and the provider for a virtual visit. Verbal consent to provide and bill this service was obtained on: 11/30/22 No signature was obtained due to the COVID-19 pandemic. SUBJECTIVE CC: Chief Complaint Patient presents with Therapy HPI: Mary Leal is a 52 y.o. female presenting to the [facility] on 11/30/22 for management of [...] every 28 (twenty-eight) d (more content not included)...[facility]01-19-2023 Miscellaneous Notes* Telephone Encounter - Uziel Serrano RN - 11/24/2022 3:20 PM EST This concern was addressed in the phone encounter on 11/24/22. Patient was called back and informed [employer] will complete Prior Authorization for her sleep study. documented in this encounterSelect Medical Specialty [facility]01-19-2023 Miscellaneous Notes* Telephone Encounter - Uziel Serrano [...] Relationship to patient : Self In-state or lez-tc-gvcio patient: In-State Was permission obtained from patient? Yes Patient identified by Name and Date of . ( Mary Leal, 1970). Yes Reason for Call : Patient stated she spoke to her insurance and they told her that the provider need to call [place] to see if a PA is needed for the PAP Titration. Number to return call [phone] Okay to leave a message ? Yes Last office visit 10/14/[address] Kusum vines Next office visit None documented in this encounterSelect Medical Specialty [facility]01-19-2023 NoteHNO ID: [id number] Author: Isra Masters DO Service: ? Author Type: Physician Type: Progress Notes Filed: 11/24/2022 8:30 AM Note Text: [employer] Test Report - [id number] Test start date: 11/17/2022 10:03 AM Hearing Healthcare Practitioner: josephine Interpretation date: 11/24/2022 Ordering physician: Isra Masters DO Referring physician: Patient Information Name: Mary Leal. ID: [id number] date: 1970 Height ft. in.: 5' 4 [...] Normal gastric transit Normal small bowel transit [id number] transit in the distal bowel consistent delay post anastomosis Signature _Dr. Masters Date _11/24/2022 [facility]01-19-2023 History of Present illness Narrative* Isra Masters DO - 11/24/2022 8:29 AM EST Images from the original note were not included. [employer] Test Report - [id number] Test start date: 11/17/2022 10:03 AM Hearing Healthcare Practitioner: josephine Interpretation date: 11/24/2022 Ordering physician: Isra Masters DO Referring physician: Patient Information Name: Mary Leal ID: [id number] date: 1970 Height ft. in.: 5' 4 [...] Normal gastric transit Normal small bowel transit 95fv48gua transit in the distal bowel consistent delay post anastomosis Signature _Dr. Masters Date _11/24/2022 documented in this encounterSelect Medical Specialty [facility]01-18-2023 NotePsychiatry Psychotherapy Progress Note Time In: 8:30 AM Time Out: 9:23 AM Present At Visit: Patient Clinician Location: Clinician in office Patient Location: Via telehealth in [place] Telehealth Information Telehealth Mode: Webex (video + audio) The patient was notified that using 3rd green party telecommunication application is not HIPAA compliant and may carry some privacy risks: Yes Video Consent Date of Telehealth Visit: 11/23/22 The patient was notified that using 3rd green party telecommunication application (e.g. Quick Hang) is not HIPAA compliant and may carry some privacy risks: Yes This visit was conducted ktky-ea-qkxo with the use of audio and video technology using Stellar Biotechnologiesex between patient and the provider for a virtual visit. Verbal consent to provide and bill this service was obtained on: 11/23/22 No signature was obtained due to the COVID-19 pandemic. SUBJECTIVE CC: Chief Complaint Patient presents with Therapy Telehealth Audio/video Visit WebEx HPI: Mary Leal is a 52 y.o. female presenting to the [facility] Psychiatry Clinic on 11/23/22 for management of [...] Disp: , Rfl: l (more content not included)...[facility]01-17-2023 NoteHNO ID: [id number] Author: Lilli Goldberg Service: ? Author Type: ? Type: Progress Notes Filed: 11/22/2022 3:34 PM Note Text: Patient calling to verify that monitor was received at A30. Monitor was sent via Fed Ex on 11/19/22. Patient is requesting a confirmation.[facility]01-17-2023 Miscellaneous Notes* Telephone Encounter - Lilli Goldberg - 11/22/2022 3:37 PM EST Patient calling to verify that Smart Pill monitor was received at A30. Monitor was sent via Fed Ex on 11/19/22. Patient is requesting a confirmation. documented in this encounterSelect Medical [facility]01-16-2023 Miscellaneous Notes* Telephone Encounter - Uziel Serrano RN - 11/21/2022 9:11 AM EST Omegawave message sent to patient. Prior Sleep study forwarded to MD to review, Order pended for PAP-titration for provider to review and sign if necessary. documented in this encounterSelect Medical Specialty [facility], Inc01-16-2023 History and physical note * Yodit Back PA-C - 11/21/2022 8:00 AM EST PREANESTHESIA CONSULT CLINIC TELEHEALTH VISIT Patient has been identified by name and date of : Yes This is a virtual visit using Omegawave video visit. It require patient-provider interaction for [...] in the AM and 4 mg PM hflapedncgb-tocpenfkh-cfhsjnoi (TRELEGY ELLIPTA) 100-62.5-25 mcg Inhale 1 Puff as instructed once daily. No current facility-administered medications for this visit. COVID VACCINATION STATUS: Fully vaccinated REVIEW OF SYSTEMS: Pain Assessment: General: No weight loss, malaise or fevers. Neuro: No history of TIA's, stroke, SUPERVISOR CD AREA tumor, impaired sensorium, hemiplegia, paraplegia or quadraplegia. [...] requiring medication, no history of angina, CHF, IA, cardiac surgery or stents. Denies rest pain, gangrene or revascularization/amputation for PVD. No history of cardiovascular symptoms or problems. 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 female presenting to the [facility] Psych[facility] on 11/04/2022 for management of [...] her previous provider prior to coming to [facility]. Primarily, she (more content not included)...[facility]01-12-2023 NoteHNO ID: [id number] Author: Berta Ann RN Service: ? Author Type: Registered Nurse Type: Progress Notes Filed: 11/17/2022 7:06 PM Note Text: Procedure pended for 12-07-22. Pre-op instructions reviewed with pt. Pt aware of need for PACC. Post op appt scheduled. Direct number provided for future reference. No other questions at this time. Berta HENSON, RN Specialty Care CoordinatorSt. [facility]01-12-2023 NoteHNO ID: [id number] Author: Winston Hannah DO Service: ? Author Type: Physician Type: Progress Notes Filed: 11/17/2022 7:06 PM Note Text: Digestive Disease AND Surgery [place] Gastroparesis/Dysmotility Consultation SERVICE DATE: 11/17/2022 SERVICE TIME: 2:16 PM PRIMARY CARE PHYSICIAN: DO Isra Mauricio [facility] [address] [place], [place] [address] My final recommendations will be communicated back [...] surgical therapy for gastroparesis in detail. Mary Keys Elvis is candidate for upper endoscopy with [...] was obtained. NAME: Mary Leal CLINIC NO: [id number] DATE OF SERVICE: November 17, 2022 This [...] and some bloating. Duration of symptoms (months): 2000-5318 Weight changes in last 3 months: Steady [...] 16.56 Motility index: 1 (more content not included)...[facility] 11-17-2022 Miscellaneous Notes* Addendum Note - Yoni Tuttle MD - 11/17/2022 3:16 PM ESTAddended by: YONI TUTTLE MD on: 11/17/2022 03:16 PM Modules accepted: Orders * Telephone Encounter - Yoni Tuttle MD - 11/17/2022 3:11 PM EST 09/22/22: PSG from [facility]: Total (RDI) AHI by 3% desat 27.1, [...] - 11/02/2022 12:33 PM EST Received from [facility] Sleep Laboratory Report via fax. 8 pages indexed to chart. documented in this encounterSelect Medical Specialty [facility], [facility]01-12-2023 NoteHNO ID: [id number] Author: Annmarie Gillespie RN Service: ? Author [...] complete. You will be wearing a Data Front Of House Manager around your neck like a necklace during the test. You must keep this near you at all times. The Data Front Of House Manager has an EVENT button. You will [...] is inside your body. Return the Data Front Of House Manager to the [facility] after your test is completed. Brittanie Gillespie RNSt. Mary'S [facility]01-12-2023 History of Present illness Narrative* Annmarie Gillespie [...] complete. You will be wearing a Data Front Of House Manager around your neck like a necklace during the test. You must keepthis near you at all times. The Data Front Of House Manager has an EVENT button. You will [...] is inside your body. Return the Data Front Of House Manager to the [facility] after your test is completed. Brittanie Gillespie RN documented in this encounterSelect Medical Specialty Hospital [facility], [facility]01-11-2023 NotePsychiatry Psychotherapy Progress Note Time In: 8:30 AM Time Out: 9:23 AM Present At Visit: Patient Clinician Location: Clinician in office Patient Location: Via telehealth in [place] Telehealth Information Telehealth Mode: Webex (video + audio) The patient was notified that using 3rd green party telecommunication application is not HIPAA compliant and may carry some privacy risks: Yes Video Consent Date of Telehealth Visit: 11/16/22 The patient was notified that using 3rd green party telecommunication application (e.g. Quick Hang) is not HIPAA compliant and may carry some privacy risks: Yes This visit was conducted aiob-ke-ooqs with the use of audio and video technology using Stellar Biotechnologiesex between patient and the provider for a virtual visit. Verbal consent to provide and bill this service was obtained on: 11/16/22 No signature was obtained due to the COVID-19 pandemic. SUBJECTIVE CC: Chief Complaint Patient presents with Therapy Telehealth Audio/video Visit WebEx HPI: Mary Leal is a 52 y.o. female presenting to the [facility] Psychiatry Clinic on 11/16/22 for management of [...] stomach pain. She reported she goes to [facility] tomorrow for testing. Pt appeared visibly fatigued [...] skin every 12 (tw (more content not included)...[facility]01-09-2023 NotePROCEDURE: XR FOOT RT MIN 3 [...] Electronically authenticated by: ZAIDA ACOSTA Date: 2022-11-14 10:39[facility]01-05-2023 NotePROCEDURE: XR FOOT RT MIN 3 VIEWS [...] Electronically authenticated by: NICKI DACOSTA Date: 2022-11-10 11:44[facility]01-05-2023 Miscellaneous Notes* Telephone Encounter - Annmarie Gillespie RN - 11/10/2022 9:07 AM EST Telephoned patient with [employer] procedure appointment reminder/instructions. Brittanie Gillespie, RN documented in this encounterSelect Medical Specialty [facility], [facility]01-04-2023 Miscellaneous Notes* Telephone Encounter - Lilli Goldberg [...] to make it legit. documented in this encounterSelect Medical Specialty [facility], [facility]01-04-2023 Miscellaneous Notes* Telephone Encounter - Mick Doll - 11/09/2022 9:47 AM EST SENT PATIENTS RX TO PREFERRED LOCATION [facility] [phone] Mick Doll EVP OF PRODUCTS & CO FOUNDER documented in this encounterSelect Medical Specialty Hospital [facility], [facility]01-03-2023 Miscellaneous Notes* Telephone Encounter - Lilli Goldberg - 11/08/2022 11:15 AM EST Per Soumya in provider services at [facility]. No prior auth is needed,coverage is active, patient can proceed with Smart Pill. Placed a new referral. Call Ref # [id number] * Telephone Encounter - Lilli Goldberg - 11/02/2022 3:51 PM EST Spoke with patient. Smart Pill is a covered benefit. Sent email to Smart Pill frame stripper and crusher and [facility] to assist in scheduling Smart Pill [...] procedure, she can call Earlene Martin at [phone]. documented in this encounterSelect Medical Specialty Hospital [facility], Inc12-30-2022 [id number] Mary Leal 1970 F Date Provider Department Center 11/04/2022 ANNETTE BRYAN [facility] PSYCH Gerardo Heal No family history on file Level of Service:65914 [place] OFFICE/OUTPATIENT ESTABLISHED HIGH MDM 40-54 MIN Reason for Visit and Comments: Med Management [[id number]][facility]12-30-2022 Note Department of Psychiatry Outpatient Progress Note Time In: 2 PM Time Out: 3 PM Present At Visit: Patient and Spouse Clinician Location: Clinician in office Patient Location: In office Subjective CC: Chief Complaint Patient presents with Med Management HPI: Mary Leal is a 52 y.o. female presenting to the [facility] Psych[facility] on 11/04/2022 for management of [...] her previous provider prior to coming to [facility]. Primarily, she struggles with task switching, rumination, and lack of emotional regulation at this time. We discussed the risks, benefits, side effects, and alternatives to Vyvanse including insomnia, irritability, increased blood pressure, and appetite suppression, and she voiced understanding and agreement. Start clonidine 0.1 mg at nighttime for sleep (more content not included)... [facility]12-19-2022 Miscellaneous Notes* Telephone Encounter - Ban [...] calling: self Call patient at: at home [phone] (home) [phone] (cell) Closing statement: Symptom Call: Thank you for calling [facility], your call is very important. A nurse will call in approximately 2-4 hours during business hours. If this is an emergency, please contact 911. Nati Hernandez documented in this encounterSelect Medical Specialty [facility], [facility]12-13-2022 Miscellaneous Notes* Telephone Encounter - Brooklyn Valle LPN - 10/18/2022 2:43 PM EST Requested Prescriptions Pending Prescriptions Disp Refills Dexlansoprazole 60 mg CpDM [Pharmacy Med Name: DEXLANSOPRAZOLE DR 60 MG CAP] 30 capsule 5 Sig: take 1 capsule by mouth before breakfast Patient last seen 10/11/2022 documented in this encounterSelect Medical Specialty [facility], [facility]12-12-2022 NotePROCEDURE: XR FOOT RT MIN 3 VIEWS, [...] Electronically authenticated by: NICKI DACOSTA Date: 2022-10-17 18:06[facility]12-12-2022 NotePROCEDURE: XR FOOT RT MIN 3 VIEWS, [...] arthrodesis with postsurgical changes Electronically authenticated by: NIKCI DACOSTA Date: 2022-10-17 18:06[facility]12-12-2022 Miscellaneous Notes* Telephone Encounter - Mick Lavon - 10/17/2022 9:17 AM EST Faxed order, office notes, demographics, and sleep study to: [facility] fax: [phone] [facility]SO [place] A REQUEST [facility]G FROM [facility] IN [place] documented in this encounterSelect Medical Specialty [facility], [facility]12-09-2022 NoteHNO ID: [id number] Author: Yoni Tuttle MD Service: ? Author Type: Physician Type: Progress Notes Filed: 10/14/2022 5:04 PM Note Text: [facility] New Patient Evaluation Virtual [...] O2 minimum 89%. 09/22/2022: PSG at OSH [facility]: records not available at this time but per pt report: AHI 27/h INSOMNIA: Difficulty falling asleep and staying asleep. WASO is worse than Sleep onset insomnia Predisposing factors: Anxiety and depression Precipitating factors: none Perpetuating factors: CHUCKIE, menopause, father passed with depression and anxiety, RLS Tried: belsomra, trazodone, ambien, doxepin Ambien: ADR on parasomnia Tried CBTi - Dr. Lidna at [facility] - 6 mo She reports having an [...] or near accidents due to drowsy drivin [place] Sleepiness Scale 10/07/2022 Score 13 (present daytime [...] cervical neck surgery PAST (more content not included)...[facility]12-06-2022 History of Present illness Narrative* Isra Masters, [...] (FLONASE) 50 mcg/actuation nasal spray Use 1 [place] in each nostril once daily. carBAMazepine XR (TEGRETOL XR) 400 mg 12 hr tablet Take 400 mg by mouth q 12 HR. ARIPiprazole (ABILIFY) 30 mg tablet Take 30 mg by mouth once daily. 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 Edited and approved by Dr. Annette Harris MD. [employer] Other 11-17-2022 Evaluation note* Encounter Date Diagnosis [...] educated regarding the risks and benefits of skilled nursing opioid use. She understands the associated risks [...] note writ ten by Lupillo Amezquita MA, Commercial Reporter. Edited and approved by Dr. Annette Harris MD. [employer] Other 11-17-2022 Evaluation note* Encounter Date Diagnosis Assessment Notes Treatment Notes Treatment Clinical Notes Sep, Lumbosacral spondylosis without myelopathy (ICD-10 - M47.817) [employer] Other 11-09-2022 Evaluation note* Encounter Date Diagnosis [...] note writ ten by Wanda Yang LPN, Commercial Reporter. Edited and approved by Dr. Annette Harris MD. [place] [employer] Other 09-21-2022 NotePROCEDURE: XR ANKLE RT MIN 3 VIEWS, XR FOOT RT MIN 3 VIEWS COMPARISON: 01/06/2021 HISTORY: Pain of right ankle joint FINDINGS: BONES:Remote osteotomy head of the first metatarsal fixed with a single screw. No acute fracture or dislocation. SOFT TISSUES:Negative. No visible soft tissue swelling. EFFUSION:None visible. OTHER: Negative. IMPRESSION: No acute abnormality Electronically authenticated by: NICKI DACOSTA Date: 2022-07-27 19:[address] [place], [place] [address]109-21-2022 NotePROCEDURE: XR ANKLE RT MIN 3 VIEWS, XR FOOT RT MIN 3 VIEWS COMPARISON: 01/06/2021 HISTORY: Pain of right ankle joint FINDINGS: BONES:Remote osteotomy head of the first metatarsal fixed with a single screw. No acute fracture or dislocation. SOFT TISSUES:Negative. No visible soft tissue swelling. EFFUSION:None visible. OTHER: Negative. IMPRESSION: No acute abnormality Electronically authenticated by: NICKI DACOSTA Date: 2022-07-27 19:10[facility] [id number] Miscellaneous Notes* Telephone Encounter - Silvia Goffshiela - 07/26/2022 2:56 PM EDT PA for Dexlansoprazole initiated electronically. 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 carBAMazepine XR [...] which included preparing to see the patient, poxt-qr-vawq patient care, completing clinical documentation, obtaining and/or reviewing separately obtained history, performing a medically appropriate examination, counseling and educating the pat ient/family/caregiver, ordering medications, tests, or procedures, and care coordination (not separately reported). Mary Obrien MD Colorectal Surgery documented in this encounterSelect Medical Specialty Hospital [facility], Inc09-20-2022 Nurse Note* Re Sierra MA - 07/26/2022 11:12 AM EDT What is the reason for your visit today? Established patient presents for post op. Who is your referring physician? Are you having poor oral intake? NO Have you had unintentional weight loss of 15 lbs/7 Kg in the last 3-6 months? NO Bowels: Wound: none Temperature: No Drains: No documented in this encounterSelect Medical Specialty [facility], [facility]08-04-2022 NotePROCEDURE: In the coronal projection, without intravenous [...] and signed by Quinton Carson on 06/09/[address] [place], [place] [address]308-02-2022 Miscellaneous Notes* Telephone Encounter - Raquel Mullen - 06/07/2022 3:34 PM EDT Patient needs RX sent to [facility] in [facility]. The previous was sent to [...] process accordingly. Raquel Mullen documented in this encounterSelect Medical Specialty [facility], Inc07-21-2022 Evaluation note* Encounter Date Diagnosis Assessment Notes [...] note writ ten by Lupillo Amezquita MA, Commercial Reporter. Edited and approved by Dr. Annette Harris MD. [place] [employer] Other 07-05-2022 Evaluation note* Encounter Date Diagnosis [...] Patient care instructions given in writing by [facility] Care At Home document. [employer] Other 06-28-2022 Miscellaneous Notes* Telephone Encounter - [...] concerns at this time. documented in this encounterSelect Medical Specialty [facility], Inc06-21-2022 Miscellaneous Notes* Telephone Encounter - See Wong [...] procedure on 03/28. Thanks! documented in this encounterSelect Medical Specialty Hospital [facility], Inc06-17-2022 History of Present illness Narrative* Jessi Sheets [...] (FLONASE) 50 mcg/actuation nasal spray Use 1 [place] in each nostril once daily. carBAMazepine XR [...] THE LUNGS every 4 hours if needed kimnsdqaznq-vodzaxidj-xtqrenaf (TRELEGY ELLIPTA) 100-62.5-25 mcg Inhale 1 Puff [...] and/or complications of treatment plan: jesu Sheets APRN.TUB OPERATOR Colorectal Surgery documented in this encounterSelect Medical Specialty Hospital [facility], Inc06-17-2022 Nurse Note* Mary Mean MA - 04/22/2022 12:06 PM EDT .What is the reason for your visit today? Post op Who is your referring physician? Self Are you having poor oral intake? NO Have you had unintentional weight loss of 15 lbs/7 Kg in the last 3-6 months? NO Bowels: regular Wound: none Temperature: No Drains: No documented in this encounterSelect Medical Specialty [facility], [facility]06-02-2022 Miscellaneous Notes* Telephone Encounter - Rachael - 04/07/2022 12:35 AM EDT Record ID: [id number] Patient name: Mary Leal Date: April 06, [...] likely is it that you would recommend [facility] to a friend or family member? -> likely Please tell me what you liked best about your hospital experience: -> The nurses documented in this encounterSelect Medical Specialty Hospital [facility], Inc05-31-2022 NoteHNO ID: [id number] Author: Pravin Ladd MD Service: Colorectal Author Type: Resident Type: Progress Notes Filed: 04/05/2022 7:52 AM Note Text: COLORECTAL SURGERY PROGRESS NOTE Mary Leal [id number] ASSESSMENT AND PLAN Mary Leal is a [...] - General Pravin Ladd MD General Surgery residentBaystate Noble HospitalZkxsbpbw56-91-3907 NoteHNO ID: [id number] Author: Nita Lamas MD Service: Colorectal Author Type: Fellow Type: Progress Notes Filed: 04/04/2022 9:40 AM Note Text: COLORECTAL SURGERY PROGRESS NOTE Mary Leal [id number] ASSESSMENT AND PLAN Mary Leal is a [...] Nita Lamas MD Colorectal Fellow 04/04/2022 9:40 [facility]05-29-2022 NoteHNO ID: [id number] Author: Pravin Ladd MD Service: Colorectal Author Type: Resident Type: Progress Notes Filed: 04/03/2022 8:03 AM Note Text: COLORECTAL SURGERY PROGRESS NOTE Mary Leal [id number] ASSESSMENT AND PLAN Mary Zoya Leal is a 51 year old female [...] - General Pravin Ladd MD General Surgery ResidentBaystate Noble [id number] NoteHNO ID: [id number] Author: Nancy Cadena MD Service: Colorectal Author Type: Resident Type: Progress Notes Filed: 04/02/2022 8:34 AM Note Text: COLORECTAL SURGERY PROGRESS NOTE Mary Leal [id number] ASSESSMENT AND PLAN Mary Leal is a [...] Nancy Cadena MD General Surgery Resident, PGY-2 [id number] NoteHNO ID: [id number] Author: Nancy Cadena MD Service: Colorectal Author Type: Resident Type: Progress Notes Filed: 04/01/2022 7:15 AM Note Text: Attestation signed by Mary Obrien MD at 04/01/2022 7:21 PM [facility]YSICIAN NOTE OF PERSONAL INVOLVEMENT IN [...] 2022 COLORECTAL SURGERY PROGRESS NOTE Mary Leal [id number] ASSESSMENT AND PLAN Mary Leal is a [...] Nancy Cadena MD General Surgery Resident, PGY-2 [id number] NoteHNO ID: [id number] Author: Yolanda Lamb MD Service: Colorectal Author Type: Resident Type: Progress Notes Filed: 03/31/2022 9:08 AM Note Text: COLORECTAL SURGERY PROGRESS NOTE Mary Leal [id number] ASSESSMENT AND PLAN Mary Leal is a [...] RESECTION AND ANASTOMOSIS - General Yolanda Lamb MDBaystate Noble [id number] NoteHNO ID: [id number] Author: Pravin Ladd MD Service: Colorectal Author [...] 2022 COLORECTAL SURGERY PROGRESS NOTE Mary Leal [id number] ASSESSMENT AND PLAN Mary Leal is a 51 year old female with PMHx Asthma, HTN, BPD, Dyslipidemia and colonic inertia who is now s/p Hand assisted TAC, EI takedown + OANH 03/28 - D/C STAVE BOLT EQUALIZER - Advance to GI soft diet - [...] RESECTION AND ANASTOMOSIS - General Pravin Ladd MDBaystate Noble HospitalYekuuwoz56-13-8416 NoteHNO ID: [id number] Author: ELIZABETH Dias Service: Care Management Author Type: Business Support Associate Type: Care Mgt Initial Assessment Filed: 03/29/2022 [...] time ADVANCE DIRECTIVES Current Advance Directive: None Dining Room Hostess Attempted to Assist with AD Completion: Yes [...] Housing Stability: Not on file PATIENT SCREEN Patient/Brusher Warp Stated Goals: To be cured/healed Under the [...] March 29, 2022 TIME: 3:45 PM PHONE: [phone] [id number] NoteHNO ID: [id number] Author: Pravin Ladd MD Service: Colorectal Author Type: Resident Type: Progress Notes Filed: 04/01/2022 5:50 AM Note Text: COLORECTAL SURGERY PROGRESS NOTE Mary Leal [id number] ASSESSMENT AND PLAN Mary Leal is a 51 year old female with PMHx Asthma, HTN, BPD, Dyslipidemia and colonic inertia who is now s/p Hand assisted TAC, EI takedown + OANH 03/28 - STAVE BOLT EQUALIZER for pain control - Magnesium replacement for [...] RESECTION AND ANASTOMOSIS - General Pravin Ladd MDBay[facility] HospitalEbpzdzwv11-35-3919 NoteHNO ID: [id number] Author: Nathanael Craig DO Service: Anesthesiology Author Type: Anesthesiologist Type: Anesthesia Procedure Notes Filed: 03/28/2022 4:16 PM Note Text: ANESTHESIOLOGY PROCEDURE NOTE Peripheral Nerve Block General Information Procedure Start Time/Medication Administration: 03/28/2022 3:50 PM Procedure End time: 03/28/2022 3:55 PM Patient location during procedure: OR Timeout Performed Pre-procedure: timeout performed Consent Obtained: Yes 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: care steamer blocker and arm band Reason for block: post-op [...] 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 and care steamer blocker Reason for block: post-op pain management/at surgeon's [...] March 28, 2022 TIME: 4:14 PM CSN: [id number] NoteHNO ID: [id number] Author: Carmen Stanley APRN.PRETZEL TWISTING MACHINE OPERATOR Service: Anesthesiology Author Type: Nurse Drum Sprayer Type: Anesthesia Procedure Notes Filed: 03/28/2022 9:49 AM Note Text: ANESTHESIOLOGY PROCEDURE NOTE Airway General Information Procedure Start Time/Medication Administration: 03/28/2022 9:21 AM Patient location during procedure: OR 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, care steamer blocker and patient Staffing PRETZEL TWISTING MACHINE OPERATOR: Carmen Stanley APRN.PRETZEL TWISTING MACHINE OPERATOR Performed by: PRETZEL TWISTING MACHINE OPERATOR Indications and Patient Condition Preoxygenated: yes Difficult [...] March 28, 2022 TIME: 9:49 AM CSN: [id number] NoteHNO ID: [id number] Author: Carmen Stanley APRN.CRNA Service: Anesthesiology Author Type: Nurse Drum Sprayer Type: Anesthesia Procedure Notes Filed: 03/28/2022 9:49 [...] March 28, 2022 TIME: 9:48 AM CSN: [id number] Miscellaneous Notes* Telephone Encounter - See Wong [...] colon. Would like a call back at [phone] documented in this encounter[facility]-2022 Miscellaneous Notes* Telephone Encounter - Jennie Moreno RN - 03/15/2022 2:39 PM EDT Outside medical record EGD H Pylori biopsy received by fax. Scanned into [employer] under scanned documents. Hard copy handed to Dr. Masters. Per Dr Masters- please call patient and let her know the H Pylori biopsy is negative. Called patient . Message relayed. No questions at this time. * Telephone Encounter - Karthikeyan Morrissey RN - 03/15/2022 2:21 PM EDT Called [employer] and I was transferred to medical records. Requesting a cover sheet with the request result be faxed to them at [phone]. H Pylori result request faxed with confirmation. * Telephone Encounter - Karthikeyan Morrissey RN - 03/15/2022 2:21 PM EDT Images from the original note were not included. DO Leo Mariano Ddsi Clinical Pool Please contact [employer] [phone] to see if the H pylori biopsy is back yet from her EGD there documented in this encounterSelect [facility]05-10-2022 Evaluation note* Encounter Date Diagnosis Assessment Notes [...] note writ ten by Wanda Yang LPN, Commercial Reporter. Edited and approved by Dr. Annette Harris MD. [place] [employer] Other 05-10-2022 Miscellaneous Notes* Telephone Encounter - Siliva Ybarra - 03/15/2022 1:24 PM EDT CECILIA for Dexilant renewal initiated through [employer]. Awaiting response ID# [id number] Rx BIN [id number] Rx PCN MCAIDOH Rx Grp [id number] documented in this encounterSelect [facility]05-10-2022 Miscellaneous Notes* Telephone Encounter - See Wong RN - 03/15/2022 9:28 AM EDT She called the office with complaints of dark red blood in her ostomy bag for the last 2 weeks. Shewas down in [place] when it started. She had an EGD in [place] that showed gastritis. She followed up with [...] concerns at this time. documented in this encounterSelect [facility]05-10-2022 History of Present illness Narrative* Isra Masters [...] seem be musculoskeletal in nature.EGD done in [facility] showed some gastritis and duodenitis. Current [...] (FLONASE) 50 mcg/actuation nasal spray Use 1 [place] in each nostril once daily. carBAMazepine XR [...] THE LUNGS every 4 hours if needed acehuxsfdao-rjhsrfkjx-qqjqfnac (TRELEGY ELLIPTA) 100-62.5-25 mcg Inhale 1 Puff [...] no edema RESPIRATORY: No dyspnea : neg VENEER TAPING MACHINE OPERATOR: neg The remainder of the review of [...] Isra Masters DO 03/15/2022 documented in this encounterSelect [facility]05-09-2022 Instructions* Patient Instructions* Urmila Alexander APRN.TUB OPERATOR - 03/14/2022 10:43 AM EDT PATIENT PREOPERATIVE INSTRUCTIONS Mary Obrien MD has scheduled you for your procedure at this surgery center: [facility]: [phone] --[address] [address]. Please check in on the1st floor at [...] Procedures: - YOU MUST HAVE A RESPONSIBLE STAFFING ANALYST TAKE YOU HOME. A MECHANICAL RESEARCH ENGINEER OR SUPERVISOR WATERPROOFING CANNOT BE MADE A RESPONSIBLE STAFFING ANALYST. - We recommend that a responsible person [...] Advance Directive, please fax a copy to [phone] or email to for it to be [...] your chart that day. documented in this encounterMark [place] [address]-[place]-2022 History and physical note * Urmila Alexander APRN.TUB OPERATOR - 03/14/2022 10:30 AM EDT Images from [...] fevers. Neurological: No history of TIA's, stroke, SUPERVISOR CD AREA tumor, impaired sensorium, hemiplegia, paraplegia orquadraplegia. No [...] > 1 time per night or hematuria. VENEER TAPING MACHINE OPERATOR: Negative for abnormal vaginal bleeding, abnormal vaginal [...] TONSILLECTOMY HX 07/2021 revision VAGINAL HYSTERECTOMY 2014 [facility] 10/2015 for endometriosis, has remaining both FAMILY [...] every 4 hours if needed Taking Yes flpwnptcesa-dwsunwhei-lfezacrb (TRELEGY ELLIPTA) 100-62.5-25 mcg Inhale 1 Puff [...] (FLONASE) 50 mcg/actuation nasal spray Use 1 [place] in each nostril once daily. No medication [...] or any previous visit (from the past 50567 hour(s)). EKG: Assessment HTN (hypertension) Assessment: Managed [...] of difficult airway No abnormal airway history [id number] Score: Age: <65 Sex: Female Hypertension history: [...] 10:30 AM PAGER/CONTACT #: documented in this encounterSelect [facility]04-25-2022 Miscellaneous Notes* Telephone Encounter - Isra Masters [...] Monday, 03/02, at 0900 - routed to [employer] to make it legit. Please advise. documented in this encounterSelect [facility]04-15-2022 Instructions* Patient Instructions* Nelsy Chávez APRN.CNP - 02/18/2022 1:18 PM EDT Healing as expected from surgery. You have a pinpoint area of suture just under the vaginal epithelium surface that may need more time to fully heal. Please call the office if you would like to try vaginal estrogen cream or with any questions/concerns. documented in this encounterSelect [facility]04-15-2022 History of Present illness Narrative* Nelsy Chávez [...] no Pain: no Abnormal Vaginal Discharge: no VENEER TAPING MACHINE OPERATOR HISTORY: Last pap: cannot remember; Last mammogram: She has never had a mammogram LMP: No LMP recorded. Patient has had a hysterectomy.; Menopause n/a: Menstrual history: NA; Deliveries: I have confirmed and edited as necessary, the PFSH obtained by others. Nelsy Chávez APRN.TUB OPERATOR Ceramics Test Engineer offered: Patient declines. OBJECTIVE: There were no [...] if this helps. She is traveling to [place] to see her ailing father for two weeks and would like to wait for now to see if things resolve. She knows she can call the office if she changes her mind and would like to trial vaginal estrogen Nelsy Chávez APRN.TUB OPERATOR documented in this encounterSelect [facility]04-08-2022 History of Present illness Narrative* Flaca Puma, PT - 02/11/2022 10:42 AM EDT Episode Visit Count: 4 Therapist That Will Oversee The Plan Of Care: La then transfer to [facility] Start of Care Date: 01/18/22 Onset Date: 12/24/21 Plan of Care Certification Date: 01/18/22 Next Certification Due Date: 03/19/22 Patient Identified by Name and Date of : Yes REHABILITATION AND SPORTS THERAPY PHYSICAL THERAPY TREATMENT NOTE ASSESSMENT: Mary Keys Elvis tolerated the session with no issues. [...] 15 Flaca Bartholomew PT documented in this encounterSelect [facility]04-05-2022 Nurse Note* Re Sierra MA - 02/08/2022 [...] Temperature: No Drains: No documented in this encounterSelect [facility]04-05-2022 History of Present illness Narrative* Mary Obrien MD - 02/08/2022 2:40 PM EDT COLORECTAL SURGERY February 08, 2022 Mary Zoya Ornelasgs Chief Complaint: follow up History of Present Illness: Mary Zoya Leal is a 51 year old female [...] TONSILLECTOMY HX 07/2021 revision VAGINAL HYSTERECTOMY 2014 [facility] 10/2015 for endometriosis, has remaining [...] (FLONASE) 50 mcg/actuation nasal spray Use 1 [place] in each nostril once daily. carBAMazepine XR [...] THE LUNGS every 4 hours if needed xltqedmnsus-afwgmjmti-vpwjdjkz (TRELEGY ELLIPTA) 100-62.5-25 mcg Inhale 1 Puff [...] medical complications of surgery including DVT/PE, PNA, IA, stroke, and . The patient understands these risks and is in agreement with proceeding. Medical Decision Making: Data Reviewed: Tests & Documents Reviewed/ordered: Review of prior notes from myself, OR, Dr. Wang Review of prior operative reports I have discussed Mary Leal's treatment plan and/or results with the patient. Mary Obrien MD Colorectal Surgery documented in this encounterSelect [facility]04-05-2022 History of Present illness Narrative* Magali Mitchell APRN.TUB OPERATOR - 02/08/2022 11:04 AM EDT Female Pelvic [...] you received about pain medications helpful? Yes Ceramics Test Engineer offered:Patient declines OBJECTIVE: BP 113/76 Pulse 74 [...] 6 month Patient expressed understanding. Magali Mitchell APRN.TUB OPERATOR documented in this encounterSelect Medical [facility]03-29-2022 Miscellaneous Notes* Telephone Encounter - Ban Benton LPN - 02/01/2022 11:[address] [facility] 06-10-21 Pharmacy and Rx request verified. Please file if appropriate. Thank you Ban Benton LPN documented in this encounterSelect [facility]03-28-2022 NoteHNO ID: [id number] Author: Newton Woodward, PT Service: ? Author [...] to Home;Specialty Service Patient transferring care to: [facility] SUBJECTIVE: Patient Reason for Visit: [...] untimed codes) : 40 Newton Woodward PT, [facility]03-28-2022 History of Present illness Narrative* Newton Woodward, [...] to Home;Specialty Service Patient transferring care to: [facility] SUBJECTIVE: Patient Reason for Visit: [...] Newton Woodward PT, DPT documented in this encounterSelect [facility]03-21-2022 NoteHNO ID: [id number] Author: Newton Woodward PT Service: ? Author Type: Physical Therapist Type: Progress Notes Filed: 01/24/2022 1:23 PM Note Text: Episode Visit Count: 2 Therapist That Will Oversee The Plan Of Care: La then transfer to [facility] Start of Care Date: 01/18/22 Onset Date: [...] Minutes (timed and untimed codes) : 45 Newtonsergey Dobsonadele Woodward PT, [facility]03-15-2022 NoteHNO ID: [id number] Author: Jessi Isaacs, PT Service: ? Author Type: Physical Therapist Type: Progress Notes Filed: 01/18/2022 1:56 PM Note Text: Episode Visit Count: 1 Therapist That Will Oversee The Plan Of Care: La then transfer to [facility] Start of Care Date: 01/18/22 Onset Date: 12/24/21 Plan of Care Certification Date: 01/18/22 Next Certification Due Date: 03/19/22 Patient Identified by Name and Date of : Yes REHABILITATION AND SPORTS THERAPY PHYSICAL THERAPY EVALUATION PLAN OF CARE: Assessment: Mayr Leal is a 51 year old female [...] Planned: 8 Planned Treatment Interventions: Therapeutic exercise (21157);Neuromuscular re-education (82941);Manual therapy (33734);Therapeutic activities (72897);Self-group home management (54448);Patient/Family/Caregiver Education PLAN FOR NEXT VISIT: PFM dynamics; biofeedback Patient demonstrates good understanding of plan of care and treatment. The above goals and plan of care were discussed and agreed upon by patient/family. Transfer of Care Due To: Closer to Home (patient to transfer in February 2022) [facility] SUBJECTIVE: Mary Leal is a [...] function/quality of life. 52 (more content not included)...[facility] HospitalSvlyfxru07-73-1121 NoteHNO ID: [id number] Author: Moni Munguia RN Service: Care Management Author Type: Registered Nurse Type: Care Mgt Progress Note Filed: 12/27/2021 4:17 PM Note Text: CARE MANAGEMENT DISCHARGE NOTE SERVICE DATE: 12/27/2021 SERVICE TIME: 4:14 PM LOS: 3 days Admission Date: 12/24/2021 DISCHARGE ARRANGEMENT (list agency and phone number) Discharge Arrangement: Home with Home Health Provider Name: [address] CAREGIVER ASSESSMENT: HANDOFF COMMUNICATION: Handoff to: Primary Care Physician Primary Care Physician Name/Phone: Eliceo Willams Jr [phone] TRANSPORTATION ARRANGEMENTS: Transportation Arrangements: N/A The Pt is accepted by [address] for new ostomy care. The SOC will be within 24 to 48 hrs. The pt will be contacted directly with the SOC. The Pt verbalized agreement with this dc plan. SIGNATURE: Moni Munguia RN PATIENT NAME: Mary Leal DATE: December 27, 2021 TIME: 4:14 PM PAGER/CONTACT #: [phone] [id number] NoteHNO ID: [id number] Author: Parish Celeste DO Service: Colorectal Author [...] - Pain and nausea control -> d/c STAVE BOLT EQUALIZER - D/c entereg - Culturelle - Continue [...] 0659 12/27/21 07 - 12/28/21 0659 Shift 5518-3554 8435-6473 3454-4464 24 Hour Total 0295-7743 8454-9576 3095-3833 24 Hour Total INTAKE PO 60 60 PO 60 60 IV 2100 2100 Volume (mL) (lactated ringers iv infusion) 2100 2100 Shift Total 2160 2160 OUTPUT Urine 0218 610 1254 2300 200 200 Void (ml) 300 1000 1300 200 200 Output ( Indwelling Urinary Catheter 12/24/21 Call 16 Fr) 1000 1000 Emesis 0 0 Emesis (ml) 0 0 Ostomy 250 125 375 Ileostomy 1 250 125 375 # of BMs Number of BMs 0 x 0 x Shift Total 6418 922 1518 2675 200 200 Weight (kg) 82.1 82.1 82.1 82.1 82.1 82.1 82.1 82.1 Recent Labs 12/26/21 0755 12/25/21 0606 WBC -- 5.96 HB -- 11.6 HCT -- 35.2* PLT -- 271 NA 139 141 K 4.0 4.0 CHLOR 102 104 CO2 28 28 CREAT 0.62* 0.72 BUN 10 12 GLUC 71 91 CA 8.5 8.5 Parish Celeste, DO General Surgery, PGY-4 [phone] After 6 pm and on the weekends please page [phone] 12-26-2021 NoteHNO ID: [id number] Author: Jenifer Ayala MD Service: Colorectal Author Type: Fellow Type: Progress Notes Filed: 12/26/2021 12:13 PM Note Text: GENERAL SURGERY PROGRESS NOTE Name: Mary Leal 12/26/2021 12:11 PM Interval Events: Patient doing well post-operatively. No acute events overnight. Tolerating CLD diet without nausea or vomiting. Stoma productive of bilious fluid + gas Pain well controlled with STAVE BOLT EQUALIZER + oral pain medication (feels most relief from po oxycodone). Assessment and Plan: 51 year old female with pelvic organ prolapse and chronic constipation, likely slow transit but with possible component of pelvic outlet obstruction and with discordant testing. Patient underwent laparoscopic protopexy on 12/24/21 surgery was uneventful. Post-operative course has been uncompliacted. Pain control- Tylenol Gabapentin Toradol STAVE BOLT EQUALIZER: Dilaudid, tegretol, klonopin, requip, trintellix, oxycodone Cardiac- [...] any questions or concerns page [facility] [id number] Objective Physical exam: BP 117/66 Pulse 77 [...] 0659 12/26/21 07 - 12/27/21 0659 Shift 9060-6314 3460-5047 7438-1711 24 Hour Total 7739-6869 3566-8708 2862-6639 24 Hour Total INTAKE PO 60 60 PO 60 60 IV 213 668 881 Volume (mL) (lactated ringers iv infusion) 213 668 881 Shift Total 273 668 941 OUTPUT Urine 616 550 8636 1000 Void (ml) 0 0 Output ( Indwelling Urinary Catheter 12/24/21 Call 16 Fr) 066 509 6678 1000 Emesis 0 0 Emesis (ml) 0 0 Ostomy 100 100 Ileostomy 1 100 100 # of BMs Number of BMs 0 x 0 x Shift Total 618 324 7480 1000 Weight (kg) 82.1 82.1 82.1 82.1 [...] Diagnosis Date Noted - Pelvic floor dysfunction 12/24/2021[facility] HospitalZeenjjwe71-27-2464 NoteHNO ID: [id number] Author: Sonido Owen MD Service: Colorectal Author [...] been uncompliacted. Pain control- Tylenol Gabapentin Toradol STAVE BOLT EQUALIZER: Dilaudid, tegretol, klonopin, requip, trintellix Cardiac- Vitals: [...] Owen MD General Surgery PGY 2 Pg [phone] For any questions or concerns page [facility] [id number] Objective Physical exam: BP 111/61 Pulse 86 [...] 0659 12/25/21 07 - 12/26/21 0659 Shift 9116-2170 9203-1932 5560-2441 24 Hour Total 7983-9380 3538-0961 7285-8981 24 Hour Total INTAKE PO 240 120 360 PO 240 120 360 IV 3100 3100 Volume (mL) (lactated ringers iv infusion) 1800 1800 Volume (mL) (lactated ringers iv infusion) 1300 1300 Shift Total 3100 657 761 0909 OUTPUT Urine 200 882 385 7523 OR Urine Output 200 200 Output ( Indwelling Urinary Catheter 12/24/21 Call 16 Fr) 300 500 800 Emesis 0 0 0 Emesis (ml) 0 0 0 Ostomy 0 0 0 Ileostomy 1 0 0 0 # of BMs Number of BMs 0 x 0 x 0 x Blood 50 50 Estimated Blood loss 50 50 Shift Total 250 027 775 1917 Weight (kg) 82.1 82.1 82.1 82.1 82.1 [...] Diagnosis Date Noted - Pelvic floor dysfunction 12/24/2021[facility] HospitalYdvbkmgh48-06-4624 NoteHNO ID: [id number] Author: Carmen Stanley APRN.CRNA Service: Anesthesiology Author Type: Nurse Drum Sprayer Type: Anesthesia Procedure Notes Filed: 12/24/2021 8:44 [...] December 24, 2021 TIME: 8:44 AM CSN: [id number] NoteHNO ID: [id number] Author: Carmen Stanley APRN.CRNA Service: Anesthesiology Author Type: Nurse Drum Sprayer Type: Anesthesia Procedure Notes Filed: 12/24/2021 8:44 AM Note Text: ANESTHESIOLOGY PROCEDURE NOTE Airway General Information Procedure Start Time/Medication Administration: 12/24/2021 8:22 AM Patient location during procedure: OR 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, care steamer blocker and patient Staffing Anesthesiologist: Chayito Ojeda MD PRETZEL TWISTING MACHINE OPERATOR: Carmen Stanley APRN.PRETZEL TWISTING MACHINE OPERATOR Performed by: PRETZEL TWISTING MACHINE OPERATOR and anesthesiologist Indications and Patient Condition Preoxygenated: [...] 1 Airway not difficult SIGNATURE: Carmen Stanley APRN.PRETZEL TWISTING MACHINE OPERATOR PATIENT NAME: Mary Leal DATE: December 24, 2021 TIME: 8:43 AM CSN: [id number] Evaluation note* Encounter Date Diagnosis Assessment Notes [...] note writ ten by Lupillo Amezquita MA, Commercial Reporter. Edited and approved by Dr. Annette Harris MD. [employer] Other 11-01-2021 Evaluation note* Encounter Date Diagnosis [...] note writ ten by Lupillo Amezquita MA, Commercial Reporter. Edited and approved by Dr. Annette Harris MD. [employer] Other 10-14-2021 Evaluation note* Encounter Date Diagnosis [...] no improvement in 2 to 3 days. [employer] Other 10-08-2021 Evaluation note* Encounter Date Diagnosis [...] Patient care instructions given in writting by [facility] document [employer] Other 10-07-2021 Evaluation note* Encounter Date Diagnosis [...] Aug, Other chronic pain (ICD-10 - G89.29) [employer] Other 09-22-2021 Evaluation note* Encounter Date Diagnosis [...] Jul, Other chronic pain (ICD-10 - G89.29) [employer] Other 03-01-2021 Note [id number]#1.00CD:[address] [place] [address] 01-04-2021 NoteCystoscopy with Botox injection ? Voiding [...] if you have a fever over 100 degrees.[facility] 11-11-2020 NoteChief Complaint Pt is here for [...] With When Contact Information Francie BENSON, Dawna Keys. [address] [place] [address] [place] [address]- [phone] Additional Instructions: F/u in 1yr. Patient Education Urinary Frequency I, Christy Gill , personally scribed for Dr. Marmolejo on 11/11/2020 12:07:15. Electronically signedby scribadele Gill on 11/11/2020 12:07:15. Documentation recorded by [...] deficit disorder Bipolar disorder (more content not included)...[facility] Comment on above:Result Comment: Electronically Signed By: Dawna Marmolejo MD\.br\Date and Time Signed: 11/11/2111:16 EST\.br\Electronically Co-Signed By: Christy Gill MA\.br\Date and Time Co-Signed: 11/11/20 12:07 [id number]:127[facility] HospitalChief [facility] Narrative - Reported* MARY LEAL is being seen for an initial evaluation of. * 52-year-old female seen in cardiology consultation at the request of her primary care physician forelevated troponin while in [facility] this past spring that was associated with a GI bleed/gastritis. * Patient recently underwent large bowel resection details of which are unknown and I suspect possibly consistent with ulcerative colitis but again unknown pathology. She had a diverting colostomy with3 anastomosis performed. While in [place] with her GI bleed and primarily gastric [...] * I believe minor troponin elevation in [place] was simply at small type II non- IA troponin elevationrelated to inflammation and gastritis and [...] colectomy. She can follow-up as needed otherwise. [place] [address] DO Work Phone: Evaluation note* Diagnosis Pelvic floor dysfunction- Primary Pelvic muscle wasting Lack of coordination Follow-up examination after colorectal surgery Follow-up examination, following other surgery [facility]* Diagnosis Gastroesophageal reflux disease, unspecified whether esophagitis present documented in this encounter [facility]* Diagnosis Follow-up examination after colorectal surgery- Primary Follow-up examination, following other surgery documented [facility] this [facility]* Diagnosis Post-operative state- Primary Other postprocedural status Yeast infection of the skin Candidiasis of skin and nails [facility] Pelvic floor dysfunction- Primary Pelvic muscle wasting Lack of coordination Follow-up examination after colorectal surgery Follow-up examination, following other surgery [facility] Diagnosis Postoperative state- Primary Other postprocedural status Attention to ileostomy (HCC) Attention to ileostomy [facility] Preop examination- Primary Preoperative examination, unspecified Attention to ileostomy (HCC) Attention to ileostomy Primary hypertension Unspecified essential hypertension Gastroparesis Gastroesophageal reflux disease, unspecified whether esophagitis present Mild persistent asthma without complication Unspecified asthma Bipolar 1 disorder (HCC) Bipolar I disorder, most recent episode (or current) unspecified Obesity (BMI 30.0-34.9) Obesity, unspecified Attention to ileostomy ([facility]) Attention to ileostomy documented in this encounter [facility] note* Diagnosis Gastroesophageal reflux disease, unspecified whether esophagitis present Chronic idiopathic constipation Unspecified constipation Attention to ileostomy ([facility]) Attention to ileostomy [facility] Diagnosis Follow-up examination after colorectal surgery- Primary Follow-up examination, following other surgery Pelvic floor dysfunction Pelvic muscle wasting documented in this encounter [facility] noteNo InformationNoOcsc Other evaluation noteNoMooter Media [employer] Other evaluation note* Diagnosis Follow-up examination after colorectal surgery- Primary Follow-up examination, following other surgery Periumbilical abdominal pain Abdominal pain, periumbilic Outlet dysfunction constipation Colonic inertia Other functional disorders of intestine documented in this encounter [facility] noteNo assessment information [facility] Work Phone: Evaludrrxt note* Diagnosis Gas bloat syndrome- Primary Chronic idiopathic constipation Unspecified constipation Gastroparesis [facility]* Diagnosis Gastroesophageal reflux disease, unspecified whether esophagitis present documented in this encounter [facility] note* Diagnosis Gastroparesis- Primary documented in this encounter [facility] note* Diagnosis CHUCKIE (obstructive sleep apnea)- Primary Obstructive sleep apnea (adult) (pediatric) documented in this encounter [facility] note* Diagnosis Pre-op exam- Primary Preoperative examination, unspecified Primary hypertension Unspecified essential hypertension Mild persistent asthma without complication Unspecified asthma Gastroparesis CHUCKIE (obstructive sleep apnea) Obstructive sleep apnea (adult) (pediatric) documented [facility]* Diagnosis CHUCKIE (obstructive sleep apnea)- Primary Obstructive sleep apnea (adult) (pediatric) documented in this encounter [facility] note* Diagnosis Chronic idiopathic constipation- Primary Unspecified constipation Nausea Nausea alone documented in this encounter [facility] note* Diagnosis Gastroesophageal reflux disease with esophagitis without hemorrhage- Primary [facility] Diagnosis Colonic inertia- Primary Other functional disorders of intestine Pelvic floor dysfunction Pelvic muscle wasting Nausea Nausea alone Gastroparesis documented in this encounter [facility] note* Diagnosis Pylorospasm- Primary Functional dyspepsia Dyspepsia and other specified disorders of function of stomach Gastroesophageal reflux disease with esophagitis without hemorrhage documented in this encounter [facility] note* Diagnosis Gastroesophageal reflux disease, unspecified whether esophagitis present documented in this encounter [facility] note* Diagnosis CHUCKIE (obstructive sleep apnea)- Primary Obstructive sleep apnea (adult) (pediatric) documented in this encounter [facility] note* Diagnosis Pylorospasm- Primary Functional dyspepsia Dyspepsia and other specified disorders of function of stomach Gastroesophageal reflux disease with esophagitis without hemorrhage documented in this encounter [facility] note* Diagnosis Gastroparesis- Primary documented in this encounter [facility] note* Diagnosis Preop examination- Primary Preoperative examination, unspecified Nausea Nausea alone CHUCKIE (obstructive sleep apnea) Obstructive sleep apnea (adult) (pediatric) Mild persistent asthma without complication Unspecified asthma Gastroesophageal reflux disease, unspecified whether esophagitis present Gastroparesis documented in this encounter 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 note* Diagnosis Incomplete bladder emptying- Primary Constipation, unspecified constipation type Urinary urgency Urgency of urination Urinary frequency Nocturia documented in this encounter [facility] note* Diagnosis Upper abdominal pain- Primary Abdominal pain, other specified site [facility] Diagnosis Burning with urination- Primary Dysuria documented in this encounter [facility] note* Diagnosis Ashley vaginitis Candidiasis of vulva and vagina documented in this encounter [facility] general Narrative - Reported* Type Description Date [...] see above list Hospitalization History respiratory 02/2020 [facility] Other [facility] general Narrative - ReportedNort [employer] Other [employer]unuj general Narrative - Reported* Type Description Date [...] see above list Hospitalization History respiratory 02/2020 [facility] Other InstructionsNot on filedocumented in this encounter [facility] for referral (narrative)* Outpatient Procedure (Routine) - Pending Review Specialty Diagnoses / Procedures Referred By Gustavo salazar Referred To Contact [facility] Diagnoses Gastroparesis Procedures CAPSULE ENDOSCOPY SMART Isra Masters DO [employer] [address] [place] [id number] [facility] Disease [address] [address] Referral ID Status Reason Start Date Expiration Date Visits Requested Visits Authorized [id number] Pending Review Auto-Generat ed Referral 10/11/2022 10/11/2023 [facility] Outpatient Procedure (Routine) - Pending Review Specialty Diagnoses / Procedures Referred By Gustavo salazar Referred To Contact [facility] Diagnoses Chronic idiopathic constipation Procedures SIGMOIDOSCOPY SIGMOIDOSCOPY FLX DX W/COLLJ SPEC BR/WA IF PFRMD Isra Masters DO [employer] [address] [place] [address] [facility] Disease [place] [id number] Referral ID Status Reason Start Date Expiration Date Visits Requested Visits Authorized [id number] Pending Review Auto-Generat ed Referral 11/30/2022 11/30/2023 1 1 [facility] for referral (narrative)* Outpatient Procedure (Routine) - Pending Review Specialty Diagnoses / Procedures Referred By Contac t Referred To Contact [facility] Diagnoses Gastroparesis Procedures EGD - THERAPEUTIC, EUS, OR TUBE INTERVENTIONS ESOPHAGOGASTRODUODENOSC OPY TRANSORAL DIAGNOSTIC STOMACH SURGERY PROCEDURE UNLISTED [place] [address] [address] Referral ID Status Reason Start Date Expiration Date Visits Requested Visits Authorized [id number] Pending Review Auto-Generat ed Referral 01/11/2023 01/12/[address] [facility] for referral (narrative)* Outpatient Procedure (Routine) - Pending Review Specialty Diagnoses / Procedures Referred By Contac t Referred To Contact [facility] Diagnoses Incomplete bladder emptying Urinary urgency Urinary frequency Nocturia Procedures URODYNAMICS WHI COMPLX CYSTOMETRO W/VOID PRESS&URETHRAL PROFILE Nelsy Chávez APRN.TUB OPERATOR [address] [place] [address] [facility] [address] [place] [id number] Referral ID Status Reason Start Date Expiration Date Visits Requested Visits Authorized [id number] Pending Review Auto-Generat ed Referral 07/31/2023 07/30/[address] [facility] for referral (narrative)* Consultation (Routine) - Open Specialty Diagnoses / Procedures Referred By Contac t Referred To Contact [facility] Diagnoses Upper abdominal pain Lev Ritter APRN TUB OPERATOR [address] [place] [address] [facility] [address] [place] [address] [place] [address] Referral ID Status Reason Start Date Expiration Date Visits Re quested Visits Authorized [id number] Open 08/12/2023 09/12/2024 1 1 [facility] NarrativeDISCUSS OTHER OPTIONS PRIOR TO [facility] [employer] Other Rex[facility] for visit NarrativeRECHECK CERVICAL PAIN DISCUSS PROCEDUR[facility]oc[facility] [employer] Other reason for visit Narrative* Outpatient Procedure (Routine) - Closed Specialty Diagnoses / Procedures Referred By Gustavo t Referred To Contact [facility] Diagnoses Gastroparesis Procedures GI TRANSIT & PRES RAVINDER WIRELESS CAPSULE W/INTERP [facility]ra [facility] [address] [place] [address] [facility] [address] [place] [address] Referral ID Status Reason Start Date Expiration Date Visits Re quested Visits Authorized [id number] Closed 11/08/2022 11/05/2023 1 1 [facility] Summary Purpose Family History No Family History [...] FoundDocuments on File Type Date Recorded Patient [employer] Expl anation Advance Directive(s) 10/13/2021 4:09 PM Advance Directive(s) 10/14/2020 8:14 AM Documents on File Type Date Recorded Patient [employer] Expl anation Advance Directive(s) 10/13/2021 4:09 PM Advance Directive(s) 10/14/2020 8:14 AM Documents on File Type Date Recorded Patient 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 Warp Expl anation Advance Directive(s) 03/21/2022 1:42 PM Advance Directive(s) 10/13/2021 4:09 PM Advance Directive(s) 10/14/2020 8:14 AM Advance Directive Response Recorded Date/ Time Advance Directives No March 28 7:15am Advance Directive Response Recorded Date/ Time Advance Directives No March 28 8:15am Reason for Referral Specialty Diagnoses / Procedures Referred By Contac t Referred To Contact Diagnoses Gastroesophageal reflux disease, unspecified whether esophagitis present Isra Masters DO [facility] [address] [place] [address] Referral ID Status Reason Start Date Expiration Date Visits Re quested Visits Authorized [id number] Closed 1 1 Referral ID Status Reason Start Date Expiration Date V isits Requested Visits Authorized [id number] Pending Review 1 1 Specialty Diagnoses / Procedures Referred By Contac t Referred To Contact CT [facility] Diagnoses Periumbilical abdominal pain Procedures CT ABD/PEL W IVCON CT ABD & PEL[place] [address] [place] [address] Ct [facility] Referral ID Status Reason Start Date Expiration Date Visits Requested Visits Authorized [id number] Pending Review Auto-Generat ed Referral 08/02/2022 08/25/2023 1 1 Reason BILATERAL SHOULDER P AIN Diagnosis 1 Shoulder pain (M25.5 19) Referral Organization [facility] Referring Provider First Name Annette Referring Provider Last Name Steven Referring Provider Specialty Pain Medici ne Referred Organization [facility] Referred Provider Annette Cartagena Referred Address [address] [place], [place],[address] Referred Provider Specialty Orthopedic S urgery Referral Priority Routine Referral Appointment Date 2022-10-10 General Notes Kim Manley 10:01:46 AM >patient already scheduled with [facility] 10/10/22 at 1:30pm. Sending p2p at this time Referral ID Status Reason Start Date Expiration Date Visits Re quested Visits Authorized [id number] Closed 1 1 Chief Complaint and Reason [...] weakness, dizziness, diaphoresis with recent work-up that [facility] emergency room. Reportedly her troponins are [...] are currently being investigated at [facility] (now her fourth GI specialist). * Last year while in [place] she had similar issues with elevated troponins in the ED and underwent heart catheterization that did not reveal any specific significant disease, details of the discharge summary are reviewed * She underwent recent stress perfusion imaging at [facility], the report is reviewed, she hasno evidence [...] disease, will investigate the troponin rise at [facility] however I believe this is likely a non- IA troponin elevation, likely associated withunderlying inflammatory bowel disease. We will follow-up on a as needed basis unless further objective data come to light * Patient is a 53-year-old female who returns at the request of her primary care physician with episodic chest discomfort associated weakness, dizziness, diaphoresis with recent work-up that [facility] emergency room. Reportedly her troponins are [...] are currently being investigated at [facility] (now her fourth GI specialist). * Last year while in [place] she had similar issues with elevated troponins in the ED and underwent heart catheterization that did not reveal any specific significant disease, details of the discharge summary are reviewed * She underwent recent stress perfusion imaging at [facility], the report is reviewed, she hasno evidence [...] disease, will investigate the troponin rise at [facility] however I believe this is likely a non- IA troponin elevation, likely associated withunderlying inflammatory bowel disease. We will follow-up on a as needed basis unless further objective data come to light Additional Source Comments INFORMATION SOURCE (unrecogn ized section and content) DATE CREATED AUTHOR 07/08/2021 [facility] DATE CREATED AUTHOR AUTHOR'S ORGANIZ ATION 11/18/2021 [facility] DATE CREATED AUTHOR AUTHOR'S ORGANIZ ATION 02/01/2022 [facility] DATE CREATED AUTHOR AUTHOR'S ORGANIZ ATION 04/05/2022 [facility] DATE CREATED AUTHOR AUTHOR'S ORGANIZ ATION 09/29/2022 [facility] DATE CREATED AUTHOR AUTHOR'S ORGANIZ ATION 12/09/2022 [facility] DATE CREATED AUTHOR AUTHOR'S ORGANIZ ATION 04/16/2023 [facility] DATE CREATED AUTHOR AUTHOR'S ORGANIZ ATION 06/14/2023 [facility] DATE CREATED AUTHOR AUTHOR'S ORGANIZ ATION 06/18/2023 [facility] DATE CREATED AUTHOR AUTHOR'S ORGANIZ ATION [facility] DATE CREATED AUTHOR AUTHOR'S ORGANIZ ATION 09/02/2023 [facility] DATE CREATED AUTHOR AUTHOR'S ORGANIZ ATION 10/12/2023 [facility] DATE CREATED AUTHOR AUTHOR'S ORGANIZ ATION 10/27/2023 [facility] DATE CREATED AUTHOR AUTHOR'S ORGANIZ ATION 10/28/2023 [facility] DATE CREATED AUTHOR AUTHOR'S ORGANIZ ATION 11/11/2023 [facility] EPIC Source Comments (unrecognize d section and content) In the event this informatio n is protected by the Federal Confidentiality of Alcohol and Drug Abuse Patient Records regulations: The Federal rules restrict any use of the information to criminally investigate or prosecute any alcohol or drug abuse patient.[facility], IncIn the event this information is protected by the Federal Confidentiality of Alcohol and Drug Abuse Patient Records regulations: The Federal rules restrict any use of the information to criminally investigate or prosecute any alcohol or drug abuse patient.[facility], IncIn the event this information is protected by the Federal Confidentiality of Alcohol and Drug Abuse Patient Records regulations: The Federal rules restrict any use of the information to criminally investigate or prosecute any alcohol or drug abuse patient.[facility] IncIn the event this information is protected by the Federal Confidentiality of Alcohol and Drug Abuse Patient Records regulations: The Federal rules restrict any use of the information to criminally investigate or prosecute any alcohol or drug abuse patient.[facility] IncIn the event this information is protected by the Federal Confidentiality of Alcohol and Drug Abuse Patient Records regulations: The Federal rules restrict any use of the information to criminally investigate or prosecute any alcohol or drug abuse patient.[facility] IncIn the event this information is protected by the Federal Confidentiality of Alcohol and Drug Abuse Patient Records regulations: The Federal rules restrict any use of the information to criminally investigate or prosecute any alcohol or drug abuse patient.[facility] IncIn the event this information is protected by the Federal Confidentiality of Alcohol and Drug Abuse Patient Records regulations: The Federal rules restrict any use of the information to criminally investigate or prosecute any alcohol or drug abuse patient.[facility] IncIn the event this information is protected by the Federal Confidentiality of Alcohol and Drug Abuse Patient Records regulations: The Federal rules restrict any use of the information to criminally investigate or prosecute any alcohol or drug abuse patient.[facility] IncIn the event this information is protected by the Federal Confidentiality of Alcohol and Drug Abuse Patient Records regulations: The Federal rules restrict any use of the information to criminally investigate or prosecute any alcohol or drug abuse patient.[facility] IncIn the event this information is protected by the Federal Confidentiality of Alcohol and Drug Abuse Patient Records regulations: The Federal rules restrict any use of the information to criminally investigate or prosecute any alcohol or drug abuse patient.[facility] IncIn the event this information is protected by the Federal Confidentiality of Alcohol and Drug Abuse Patient Records regulations: The Federal rules restrict any use of the information to criminally investigate or prosecute any alcohol or drug abuse patient.[facility] IncIn the event this information is protected by the Federal Confidentiality of Alcohol and Drug Abuse Patient Records regulations: The Federal rules restrict any use of the information to criminally investigate or prosecute any alcohol or drug abuse patient.[facility], IncIn the event this information is protected by the Federal Confidentiality of Alcohol and Drug Abuse Patient Records regulations: The Federal rules restrict any use of the information to criminally investigate or prosecute any alcohol or drug abuse patient.[facility] IncIn the event this information is protected by the Federal Confidentiality of Alcohol and Drug Abuse Patient Records regulations: The Federal rules restrict any use of the information to criminally investigate or prosecute any alcohol or drug abuse patient.[facility] IncIn the event this information is protected by the Federal Confidentiality of Alcohol and Drug Abuse Patient Records regulations: The Federal rules restrict any use of the information to criminally investigate or prosecute any alcohol or drug abuse patient.[facility] IncIn the event this information is protected by the Federal Confidentiality of Alcohol and Drug Abuse Patient Records regulations: The Federal rules restrict any use of the information to criminally investigate or prosecute any alcohol or drug abuse patient.[facility] IncIn the event this information is protected by the Federal Confidentiality of Alcohol and Drug Abuse Patient Records regulations: The Federal rules restrict any use of the information to criminally investigate or prosecute any alcohol or drug abuse patient.[facility], IncIn the event this information is protected by the Federal Confidentiality of Alcohol and Drug Abuse Patient Records regulations: The Federal rules restrict any use of the information to criminally investigate or prosecute any alcohol or drug abuse patient.[facility] IncIn the event this information is protected by the Federal Confidentiality of Alcohol and Drug Abuse Patient Records regulations: The Federal rules restrict any use of the information to criminally investigate or prosecute any alcohol or drug abuse patient.[facility] IncIn the event this information is protected by the Federal Confidentiality of Alcohol and Drug Abuse Patient Records regulations: The Federal rules restrict any use of the information to criminally investigate or prosecute any alcohol or drug abuse patient.[facility] IncIn the event this information is protected by the Federal Confidentiality of Alcohol and Drug Abuse Patient Records regulations: The Federal rules restrict any use of the information to criminally investigate or prosecute any alcohol or drug abuse patient.[facility] IncIn the event this information is protected by the Federal Confidentiality of Alcohol and Drug Abuse Patient Records regulations: The Federal rules restrict any use of the information to criminally investigate or prosecute any alcohol or drug abuse patient.[facility] IncIn the event this information is protected by the Federal Confidentiality of Alcohol and Drug Abuse Patient Records regulations: The Federal rules restrict any use of the information to criminally investigate or prosecute any alcohol or drug abuse patient.[facility] IncIn the event this information is protected by the Federal Confidentiality of Alcohol and Drug Abuse Patient Records regulations: The Federal rules restrict any use of the information to criminally investigate or prosecute any alcohol or drug abuse patient.[facility] IncIn the event this information is protected by the Federal Confidentiality of Alcohol and Drug Abuse Patient Records regulations: The Federal rules restrict any use of the information to criminally investigate or prosecute any alcohol or drug abuse patient.[facility] IncIn the event this information is protected by the Federal Confidentiality of Alcohol and Drug Abuse Patient Records regulations: The Federal rules restrict any use of the information to criminally investigate or prosecute any alcohol or drug abuse patient.[facility] IncIn the event this information is protected by the Federal Confidentiality of Alcohol and Drug Abuse Patient Records regulations: The Federal rules restrict any use of the information to criminally investigate or prosecute any alcohol or drug abuse patient.[facility] IncIn the event this information is protected by the Federal Confidentiality of Alcohol and Drug Abuse Patient Records regulations: The Federal rules restrict any use of the information to criminally investigate or prosecute any alcohol or drug abuse patient.[facility] IncIn the event this information is protected by the Federal Confidentiality of Alcohol and Drug Abuse Patient Records regulations: The Federal rules restrict any use of the information to criminally investigate or prosecute any alcohol or drug abuse patient.[facility] IncIn the event this information is protected by the Federal Confidentiality of Alcohol and Drug Abuse Patient Records regulations: The Federal rules restrict any use of the information to criminally investigate or prosecute any alcohol or drug abuse patient.[facility] IncIn the event this information is protected by the Federal Confidentiality of Alcohol and Drug Abuse Patient Records regulations: The Federal rules restrict any use of the information to criminally investigate or prosecute any alcohol or drug abuse patient.[facility] IncIn the event this information is protected by the Federal Confidentiality of Alcohol and Drug Abuse Patient Records regulations: The Federal rules restrict any use of the information to criminally investigate or prosecute any alcohol or drug abuse patient.[facility], IncIn the event this information is protected by the Federal Confidentiality of Alcohol and Drug Abuse Patient Records regulations: The Federal rules restrict any use of the information to criminally investigate or prosecute any alcohol or drug abuse patient.[facility], IncIn the event this information is protected by the Federal Confidentiality of Alcohol and Drug Abuse Patient Records regulations: The Federal rules restrict any use of the information to criminally investigate or prosecute any alcohol or drug abuse patient.[facility], IncIn the event this information is protected by the Federal Confidentiality of Alcohol and Drug Abuse Patient Records regulations: The Federal rules restrict any use of the information to criminally investigate or prosecute any alcohol or drug abuse patient.[facility], IncIn the event this information is protected by the Federal Confidentiality of Alcohol and Drug Abuse Patient Records regulations: The Federal rules restrict any use of the information to criminally investigate or prosecute any alcohol or drug abuse patient.[facility], IncIn the event this information is protected by the Federal Confidentiality of Alcohol and Drug Abuse Patient Records regulations: The Federal rules restrict any use of the information to criminally investigate or prosecute any alcohol or drug abuse patient.[facility], IncIn the event this information is protected by the Federal Confidentiality of Alcohol and Drug Abuse Patient Records regulations: The Federal rules restrict any use of the information to criminally investigate or prosecute any alcohol or drug abuse patient.[facility], IncIn the event this information is protected by the Federal Confidentiality of Alcohol and Drug Abuse Patient Records regulations: The Federal rules restrict any use of the information to criminally investigate or prosecute any alcohol or drug abuse patient.[facility], IncIn the event this information is protected by the Federal Confidentiality of Alcohol and Drug Abuse Patient Records regulations: The Federal rules restrict any use of the information to criminally investigate or prosecute any alcohol or drug abuse patient.[facility], IncIn the event this information is protected by the Federal Confidentiality of Alcohol and Drug Abuse Patient Records regulations: The Federal rules restrict any use of the information to criminally investigate or prosecute any alcohol or drug abuse patient.[facility], IncIn the event this information is protected by the Federal Confidentiality of Alcohol and Drug Abuse Patient Records regulations: The Federal rules restrict any use of the information to criminally investigate or prosecute any alcohol or drug abuse patient.[facility], IncIn the event this information is protected by the Federal Confidentiality of Alcohol and Drug Abuse Patient Records regulations: The Federal rules restrict any use of the information to criminally investigate or prosecute any alcohol or drug abuse patient.[facility], IncIn the event this information is protected by the Federal Confidentiality of Alcohol and Drug Abuse Patient Records regulations: The Federal rules restrict any use of the information to criminally investigate or prosecute any alcohol or drug abuse patient.[facility], IncIn the event this information is protected by the Federal Confidentiality of Alcohol and Drug Abuse Patient Records regulations: The Federal rules restrict any use of the information to criminally investigate or prosecute any alcohol or drug abuse patient.[facility], IncIn the event this information is protected by the Federal Confidentiality of Alcohol and Drug Abuse Patient Records regulations: The Federal rules restrict any use of the information to criminally investigate or prosecute any alcohol or drug abuse patient.[facility], IncIn the event this information is protected by the Federal Confidentiality of Alcohol and Drug Abuse Patient Records regulations: The Federal rules restrict any use of the information to criminally investigate or prosecute any alcohol or drug abuse patient.[facility], IncIn the event this information is protected by the Federal Confidentiality of Alcohol and Drug Abuse Patient Records regulations: The Federal rules restrict any use of the information to criminally investigate or prosecute any alcohol or drug abuse patient.[facility], IncIn the event this information is protected by the Federal Confidentiality of Alcohol and Drug Abuse Patient Records regulations: The Federal rules restrict any use of the information to criminally investigate or prosecute any alcohol or drug abuse patient.[facility], IncIn the event this information is protected by the Federal Confidentiality of Alcohol and Drug Abuse Patient Records regulations: The Federal rules restrict any use of the information to criminally investigate or prosecute any alcohol or drug abuse patient.[facility], IncIn the event this information is protected by the Federal Confidentiality of Alcohol and Drug Abuse Patient Records regulations: The Federal rules restrict any use of the information to criminally investigate or prosecute any alcohol or drug abuse patient.[facility], IncIn the event this information is protected by the Federal Confidentiality of Alcohol and Drug Abuse Patient Records regulations: The Federal rules restrict any use of the information to criminally investigate or prosecute any alcohol or drug abuse patient.[facility], IncIn the event this information is protected by the Federal Confidentiality of Alcohol and Drug Abuse Patient Records regulations: The Federal rules restrict any use of the information to criminally investigate or prosecute any alcohol or drug abuse patient.[facility], IncIn the event this information is protected by the Federal Confidentiality of Alcohol and Drug Abuse Patient Records regulations: The Federal rules restrict any use of the information to criminally investigate or prosecute any alcohol or drug abuse patient.[facility], IncIn the event this information is protected by the Federal Confidentiality of Alcohol and Drug Abuse Patient Records regulations: The Federal rules restrict any use of the information to criminally investigate or prosecute any alcohol or drug abuse patient.[facility], IncIn the event this information is protected by the Federal Confidentiality of Alcohol and Drug Abuse Patient Records regulations: The Federal rules restrict any use of the information to criminally investigate or prosecute any alcohol or drug abuse patient.[facility], IncIn the event this information is protected by the Federal Confidentiality of Alcohol and Drug Abuse Patient Records regulations: The Federal rules restrict any use of the information to criminally investigate or prosecute any alcohol or drug abuse patient.[facility], IncIn the event this information is protected by the Federal Confidentiality of Alcohol and Drug Abuse Patient Records regulations: The Federal rules restrict any use of the information to criminally investigate or prosecute any alcohol or drug abuse patient.[facility], IncIn the event this information is protected by the Federal Confidentiality of Alcohol and Drug Abuse Patient Records regulations: The Federal rules restrict any use of the information to criminally investigate or prosecute any alcohol or drug abuse patient.[facility], IncIn the event this information is protected by the Federal Confidentiality of Alcohol and Drug Abuse Patient Records regulations: The Federal rules restrict any use of the information to criminally investigate or prosecute any alcohol or drug abuse patient.[facility], IncIn the event this information is protected by the Federal Confidentiality of Alcohol and Drug Abuse Patient Records regulations: The Federal rules restrict any use of the information to criminally investigate or prosecute any alcohol or drug abuse patient.[facility], IncIn the event this information is protected by the Federal Confidentiality of Alcohol and Drug Abuse Patient Records regulations: The Federal rules restrict any use of the information to criminally investigate or prosecute any alcohol or drug abuse patient.[facility], IncIn the event this information is protected by the Federal Confidentiality of Alcohol and Drug Abuse Patient Records regulations: The Federal rules restrict any use of the information to criminally investigate or prosecute any alcohol or drug abuse patient.[facility], IncIn the event this information is protected by the Federal Confidentiality of Alcohol and Drug Abuse Patient Records regulations: The Federal rules restrict any use of the information to criminally investigate or prosecute any alcohol or drug abuse patient.[facility], IncIn the event this information is protected by the Federal Confidentiality of Alcohol and Drug Abuse Patient Records regulations: The Federal rules restrict any use of the information to criminally investigate or prosecute any alcohol or drug abuse patient.[facility], IncIn the event this information is protected by the Federal Confidentiality of Alcohol and Drug Abuse Patient Records regulations: The Federal rules restrict any use of the information to criminally investigate or prosecute any alcohol or drug abuse patient.[facility], IncIn the event this information is protected by the Federal Confidentiality of Alcohol and Drug Abuse Patient Records regulations: The Federal rules restrict any use of the information to criminally investigate or prosecute any alcohol or drug abuse patient.[facility], IncIn the event this information is protected by the Federal Confidentiality of Alcohol and Drug Abuse Patient Records regulations: The Federal rules restrict any use of the information to criminally investigate or prosecute any alcohol or drug abuse patient.[facility], IncIn the event this information is protected by the Federal Confidentiality of Alcohol and Drug Abuse Patient Records regulations: The Federal rules restrict any use of the information to criminally investigate or prosecute any alcohol or drug abuse patient.[facility], IncIn the event this information is protected by the Federal Confidentiality of Alcohol and Drug Abuse Patient Records regulations: The Federal rules restrict any use of the information to criminally investigate or prosecute any alcohol or drug abuse patient.[facility], IncIn the event this information is protected by the Federal Confidentiality of Alcohol and Drug Abuse Patient Records regulations: The Federal rules restrict any use of the information to criminally investigate or prosecute any alcohol or drug abuse patient.[facility], IncIn the event this information is protected by the Federal Confidentiality of Alcohol and Drug Abuse Patient Records regulations: The Federal rules restrict any use of the information to criminally investigate or prosecute any alcohol or drug abuse patient.[facility], IncIn the event this information is protected by the Federal Confidentiality of Alcohol and Drug Abuse Patient Records regulations: The Federal rules restrict any use of the information to criminally investigate or prosecute any alcohol or drug abuse patient.[facility], IncIn the event this information is protected by the Federal Confidentiality of Alcohol and Drug Abuse Patient Records regulations: The Federal rules restrict any use of the information to criminally investigate or prosecute any alcohol or drug abuse patient.[facility], IncIn the event this information is protected by the Federal Confidentiality of Alcohol and Drug Abuse Patient Records regulations: The Federal rules restrict any use of the information to criminally investigate or prosecute any alcohol or drug abuse patient.[facility], IncIn the event this information is protected by the Federal Confidentiality of Alcohol and Drug Abuse Patient Records regulations: The Federal rules restrict any use of the information to criminally investigate or prosecute any alcohol or drug abuse patient.[facility] Reason for Visit (unrecogniz ed section and content) Reason Comments Physical Therapy Specialty Diagnoses / Procedures Referred By Gustavo salazar Referred To Contact [facility] Diagnoses Follow-up examination after colorectal surgery Procedures CONSULT TO PHYSICAL THERAPY PHYSICAL THERAPY EVALUATION HIGH COMPLEX [place] [address] [place] [address] [facility] [address] [place] [address] Referral ID Status Reason Start Date Expiration Date Visits Requested Visits Authorized [id number] Authorized Auto-Generat ed Referral 01/04/2022 11/05/2022 30 30 Reason Comments Refill Request dexlansoprazole Reason Comments Established Patient Follow-Up Reason Comments Post Op Reason Comments Established Patient Reason Comments Appointment for script refill Reason Comments Gastroparesis 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 Reason Comments Medication 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 PA [...] RADIOLOGIC EXAM ESOPHAGUS DOUBLE CONTRAST STUDY Winston Hannah, [place] [address] Xr Imaging Referral ID Status Reason Start Date Expiration Date V isits Requested Visits Authorized [id number] Closed Auto-Generate d Referral 11/17/2022 12/17/2023 1 1 Reason Comments Gastroparesis Reason Comments Schedule Procedure Reason Comments Appointment Pt has not arrived f or her 1 pm appointment Reason Comments Results Sigmoidoscopy result s; patient questions Reason Comments Refill Request Specialty Diagnoses / Procedures Referred By Gustavo salazar Referred To Contact CT IMAGING Diagnoses Periumbilical abdominal pain Procedures CT ABD/PEL W IVCON CT ABD & PEL[place] [address] [place] [address] Ct Imaging Referral ID Status Reason Start Date Expiration Date V isits Requested Visits Authorized [id number] Closed Auto-Generate d Referral 07/28/2022 11/05/2022 2 2 Reason Comments Urinary Retention Reason Comments Abdominal Pain Reason Comments Med Change Request Care Teams (unrecognized sec tion and content) Team Status: Active Member Role Status Dates Shannon Willams , Primary Care Provider Active Team Status: Inactive Member Role Status Dates Shannon Willams , DO Primary Care Provider Active Niecy Duron PA-C Attending Provider Active [employer] Relationship Specialty Start Date End Date Eliceo Willams Jr. [address] [place] [address] PCP - General Family Practice 10/14/20 [employer] Relationship Specialty Start Date End Date Eliceo Willams Jr. [address] [place] [address] PCP - General Family Practice 10/14/20 [employer] Operator Relationship Specialty Start Date End Date Eliceo Willams Jr. [address] [place] [address] PCP - General Family Practice 10/14/20 [employer] Operator Relationship Specialty Start Date End Date Eliceo Willams Jr. [address] [place] [address] PCP - General Family Practice 10/14/20 [employer] Treatment Operator Relationship Specialty Start Date End Date Eliceo Willams Jr. [address] [place] [address] PCP - General Family Practice 10/14/20 [employer] Operator Relationship Specialty Start Date End Date Eliceo Willams Jr. [address] [place] [address] PCP - General Family Practice 10/14/20 Gwendolyn Stroud [address] [place] [address] Family Practice 03/14/22 [employer] Operator Relationship Specialty Start Date End Date Eliceo Willams JrReno [address] [place] [address] PCP - General Family Practice 10/14/20 Gwendolyn Stroud [address] [place] [address] Family Practice 03/14/22 [employer] Operator Relationship Specialty Start Date End Date Eliceo Willams JrReno [address] [place] [address] PCP - General Family Practice 10/14/20 Gwendolyn Stroud [address] [place] [address] Family Practice 03/14/22 [employer] Operator Relationship Specialty Start Date End Date Eliceo Willams JrReno [address] [place] [address] PCP - General Family Practice 10/14/20 Gwendolyn Stroud [address] [place] [address] Family Practice 03/14/22 [employer] Operator Relationship Specialty Start Date End Date Dalia Eliceo Lugo [address] [place] [address] PCP - General Family Practice 10/14/20 Gwendolyn Stroud [address] [place] [address] Family Practice 03/14/22 [employer] Operator Relationship Specialty Start Date End Date Eliceo Willams Jr. [address] [place] [address] PCP - General Family Practice 10/14/20 Gwendolyn Stroud [address] [place] [address] Family Practice 03/14/22 [employer] Operator Relationship Specialty Start Date End Date Eliceo Willams Jr. [address] [place] [address] PCP - General Family Practice 10/14/20 Gwendolyn Stroud, TUB OPERATOR Family Practice 03/14/22 [employer] Operator Relationship Specialty Start Date End Date Eliceo Willams Jr. [address] [place] [address] PCP - General Family Practice 10/14/20 Gwendolyn Stroud, TUB OPERATOR Family Practice 03/14/22 [employer] Operator Relationship Specialty Start Date End Date Eliceo Willams Jr. [address] [place] [address] PCP - General Family Practice 10/14/20 Gwendolyn Stroud, TUB OPERATOR Family Practice 03/14/22 [employer] Operator Relationship Specialty Start Date End Date Eliceo Willams Jr. [address] [place] [address] PCP - General Family Practice 10/14/20 Gwendolyn Stroud, TUB OPERATOR Family Practice 03/14/22 [employer] Operator Relationship Specialty Start Date End Date Eliceo Willams Jr. [address] [place] [address] PCP - General Family Medicine 10/14/20 Gwendolyn Stroud, TUB OPERATOR Family Medicine 03/14/22 [employer] Operator Relationship Specialty Start Date End Date Eliceo Willams Jr. [address] [place] [address] PCP - General Family Medicine 10/14/20 Gwendolyn Stroud CNP Family Medicine 03/14/22 [employer] Operator Relationship Specialty Start Date End Date Eliceo Willams Jr. [address] [place] [address] PCP - General Family Medicine 10/14/20 Gwendolyn Stroud TUB OPERATOR Family Medicine 03/14/22 [employer] Operator Relationship Specialty Start Date End Date Eliceo Willams Jr. [address] [place] [address] PCP - General Family Medicine 10/14/20 Gwendolyn Stroud TUB OPERATOR Family Medicine 03/14/22 Team Status: Inactive Member Role Status Dates Shannon Willams , Primary Care Provider Active Annette Harris MD Attending Provider Active [employer] Operator Relationship Specialty Start Date End Date Eliceo Willams Jr. [address] [place] [address] PCP - General Family Medicine 10/14/20 Gwendolyn Stroud, TUB OPERATOR [address] [place] [address] Family Medicine 03/14/22 [employer] Operator Relationship Specialty Start Date End Date Eliceo Willams Jr. [address] [place] [address] PCP - General Family Medicine 10/14/20 Gwendolyn Stroud, TUB OPERATOR [address] [place] [address] Family Medicine 03/14/22 [employer] Operator Relationship Specialty Start Date End Date Eliceo Willams Jr. [address] [place] [address] PCP - General Family Medicine 10/14/20 Gwendolyn Stroud CNP [address] [place] [address] Family Medicine 03/14/22 [employer] Operator Relationship Specialty Start Date End Date Eliceo Willams Jr. [address] [place] [address] PCP - General Family Medicine 10/14/20 Gwendolyn Stroud, TUB OPERATOR [address] [place] [address] Family Medicine 03/14/22 [employer] Operator Relationship Specialty Start Date End Date Eliceo Willams Jr. [address] [place] [address] PCP - General Family Medicine 10/14/20 Gwendolyn Stroud, KWESI [address] [place] [address] Family Medicine 03/14/22 [employer] Operator Relationship Specialty Start Date End Date Eliceo Willams Jr. [address] [place] [address] PCP - General Family Medicine 10/14/20 Gwendolyn Stroud CNP [address] [place] [address] Family Medicine 03/14/22 [employer] Operator Relationship Specialty Start Date End Date Eliceo Willams Jr. [address] [place] [address] PCP - General Family Medicine 10/14/20 Gwendolyn Stroud CNP [address] [place] [address] Family Medicine 03/14/22 [employer] Treatment Operator Relationship Specialty Start Date End Date Eliceo Willams Jr. [address] [place] [address] PCP - General Family Medicine 10/14/20 Gwendolyn Stroud CNP [address] [place] [address] Family Medicine 03/14/22 [employer] Treatment Operator Relationship Specialty Start Date End Date Eliceo Willams Jr. [address] [place] [address] PCP - General Family Medicine 10/14/20 Gwendolyn Stroud CNP [address] [place] [address] Family Medicine 03/14/22 [employer] Treatment Operator Relationship Specialty Start Date End Date Eliceo Willams Jr. [address] [place] [address] PCP - General Family Medicine 10/14/20 Gwendolyn Stroud, TUB OPERATOR [address] [place] [address] Family Medicine 03/14/22 [employer] Operator Relationship Specialty Start Date End Date Eliceo Willams Jr. [address] [place] [address] PCP - General Family Medicine 10/14/20 Gwendolyn Stroud, TUB OPERATOR [address] [place] [address] Family Medicine 03/14/22 Team Status: Inactive Member Role Status Henrietta Willams DO Primary Care Provider Active Annette Cartagena MD Attending Provider Active [employer] Operator Relationship Specialty Start Date End Date Eliceo Willams Jr. [address] [place] [address] PCP - General Family Medicine 10/14/20 Gwendolyn Stroud, TUB OPERATOR [address] [place] [address] Family Medicine 03/14/22 [employer] Relationship Specialty Start Date End Date Eliceo Willams Jr. [address] [place] [address] PCP - General Family Medicine 10/14/20 Gwendolyn Stroud, TUB OPERATOR [address] [place] [address] Family Medicine 03/14/22 [employer] Well [employer] Operator Relationship Specialty Start Date End Date Eliceo Willams Jr. [address] [place] [address] PCP - General Family Medicine 10/14/20 Gwendolyn Stroud, TUB OPERATOR [address] [place] [address] Family Medicine 03/14/22 [employer] Well Treatment Operator Relationship Specialty Start Date End Date Eliceo Willams JrReno [address] [place] [address] PCP - General Family Medicine 10/14/20 Gwendolyn Stroud, TUB OPERATOR [address] [place] [address] Family Medicine 03/14/22 [employer] Well Treatment Operator Relationship Specialty Start Date End Date Stephonleigha Eliceo Lugo [address] [place] [address] PCP - General Family Medicine 10/14/20 Gwendolyn Stroud, TUB OPERATOR [address] [place] [address] Family Medicine 03/14/22 [employer] Well Treatment Operator Relationship Specialty Start Date End Date Dalia Eliceo Lugo [address] [place] [address] PCP - General Family Medicine 10/14/20 Gwendolyn Stroud, TUB OPERATOR [address] [place] [address] Family Medicine 03/14/22 [employer] Well Treatment Operator Relationship Specialty Start Date End Date Dalia Eliceo Lugo [address] [place] [address] PCP - General Family Medicine 10/14/20 Gwendolyn Stroud, TUB OPERATOR [address] [place] [address] Family Medicine 03/14/22 [employer] Well Treatment Operator Relationship Specialty Start Date End Date Eliceo Willams Jr. [address] [place] [address] PCP - General Family Medicine 10/14/20 Gwendolyn Stroud CNP [address] [place] [address] Family Medicine 03/14/22 Team Status: Inactive Member Role Status Henrietta Willams , DO Primary Care Provider Active Anibal Valle , DO Emergency Provider Active [employer] Operator Relationship Specialty Start Date End Date Eliceo Willams Jr. [address] [place] [address] PCP - General Family Medicine 10/14/20 Gwendolyn Stroud CNP [address] [place] [address] Family Medicine 03/14/22 [employer] Well Treatment Operator Relationship Specialty Start Date End Date Eliceo Willams Jr. [address] [place] [address] PCP - General Family Medicine 10/14/20 Gwendolyn Stroud CNP [address] [place] [address] Family Medicine 03/14/22 [employer] Well Treatment Operator Relationship Specialty Start Date End Date Eliceo Willams Jr. [address] [place] [address] PCP - General Family Medicine 10/14/20 Gwendolyn Stroud, KWESI [address] [place] [phone] Family Medicine 03/14/22 [employer] Well Treatment Operator Relationship Specialty Start Date End Date DaliaEliceo Jr., DO [address] [facility] [address] [place] [address] PCP - General Family Medicine 10/14/20 Gwendolyn Stroud CNP [address] [facility] [address] [place] [address] Family Medicine 03/14/22 [employer] Well Treatment Operator Relationship Specialty Start Date End Date Dalia Eliceo Parish Morales, DO [address] [facility] [address] [place] [address] PCP - General Family Medicine 10/14/20 Gwendolyn Stroud, KWESI [address] [facility] [address] [place] [address] Family [facility] 03/14/22 [employer] Well Treatment Operator Relationship Specialty Start Date End Date DaliaEliceo Jr., DO [address] [facility], [id number] [place] [address] PCP - General Family Medicine 12/11/19 Goals (unrecognized section and content) Goals may [...] BE BASED ON THE PRIMARY CLINICAL RECORDS. [facility] [employer] [facility]. provides no warranty or guarantee of the accuracy or completeness of information in this document.
[2023-11-13 07:53] LABS: Glucometer 93 mg/dL (74-106)
[2023-11-13] MEDS: LACTATED RINGER'S SOLUTION 1,000 ML 50 ML IV ×2 (08:01→10:33)
[2023-11-13] MEDS: CEFAZOLIN SODIUM/DEXTROSE,ISO 2 GM/50 ML PIGGYBACK IV (08:39)
[2023-11-13] MEDS: LIDOCAINE HCL 1% 100 MG/10 ML MDV 20 ML INJ (09:23)
--- NOTE | 2023-11-13 10:39 | P.ORON_ITS ---
Brief Operative Note Date of procedure: 11/13/23 Pre-op diagnosis: painful hardware right foot, possible peroneal tendon tear and instability Post-op diagnosis: other (painful hardwareright foot with peroneal tendon tear) Procedure: PROCEDURES PERFORMED: 1. peroneal tendon transfer 2. removal of deep orthopedic hardware calcaneal cuboid joint 3. intraoperative stress examination under fluoroscopy all procedures performed on the right ankle INDICATION FOR PROCEDURE: patient is a 53-year-old female well known to my practice who underwent right flatfoot reconstruction in 2022 which required revision to triple arthrodesis on 05-12-2023. Recent imaging revealed healed fusion sites and stable hardware however patient has had persistent pain over the lateral hindfoot and calcaneal cuboid joint. This pain and dysfunction did not improve over the last three months and was preventing the patient to progressing back to normal activity. She wished to proceed with hardware removal and peroneal tendon exploration and intraoperative assessment for instability. She was educated all potential risks and benefits and all questions were answered to her satisfaction INTRAOPERATIVE FINDINGS: fused calcaneal cuboid joint with significant amount of hypertrophic bone over the lateral calcaneus and calcaneal cuboid joint. Hypertrophic bone was impinging on the peroneal tendons which were scarred and nearly immovable with range of motion. There is a great deal of chronic synovitis surrounding the peroneal tendons and chronic degeneration and tearing of both the brevis and longus. Stress examination of the ankle collateral ligaments noted stability in all planes PROCEDURE IN DETAIL: Patient was identified in pre op and consent was reviewed. Correct side and site were identified and marked. Pre-op antibiotics were started. Patient was brought to OR suite and place on table in a supine position. General anesthesia was administered. Tourniquet applied. Operative extremity was prepped and draped in usual sterile fashion. Formal time-out was performed and the foot/ankle were exsanguinated and tourniquet inflated. Lateral hindfoot incision was made over the lateral hindfoot extending from the tip of the fibula to the midportion of the cuboid. Combination sharp and blunt dissection gained access to the lateral wall of the calcaneus and calcaneal cuboid joint. The peroneal tendons were enlarged and scarred down to the lateral wall of the calcaneus. Great deal of dissection was required to free the tendons and fully exposed the calcaneal cuboid joint which noted fusion across the joint with hypertrophic bone overlying the two joshua and Campbell calcaneal wedge. The hypertrophic bone was removed with osteotomes and rongeurs exposing the joshua which were then removed with a combination of osteotome, pliers and the staple prepress specialist. The holes created from the joshua were curetted to healthy bleeding bone. Then a rasp was used to contour and smooth bone from the lateral calcaneal wall and cuboid. surgical site was irrigated with copious amounts of saline insuring all debris was removed. the incision was then extended slightly proximal and the Peroneal retinaculum and tendon sheath were incised to expose the peroneal tendons. The peroneal tend ons were dislocated from the fibular groove for close inspection. the tendons were debrided of all scar and chronic synovitis. Both the brevis and longus were hypertrophied distal to the fibular groove. All nonviable tendon was removed. Due to the amount of scarring and chronic degeneration decision was made to perform peroneal tendon transfer. The tendons were sewn together under physiologic tension then to prevent further adhesions and scarring and allograft tendon wrap was placed around both the tendons which was then sewn in place. Bone wax was then placed over the calcaneal cuboid joint in the area of hypertrophic bone that was previously excised. the ankle was then stressed in all planes and was notably stable under intraoperative live fluoroscopy. The surgical site was irrigated with copious amounts sterile saline. The tendon sheath was reapproximated and the superior peroneal retinaculum repaired with a pants over vest absorbable suture. Skin was closed in layers and the tourniquet was deflated with a prompt hyperemic response. A dry sterile dressing consisting of Xeroform on the incisions followed by 4 x 4 gauze, ABDs, and Kerlix were applied. a cam boot will be applied in the recovery room. Patient tolerated the procedure and anesthesia well and was transported to recovery room with vital signs stable and brisk capillary refill to right toes POSTOPERATIVE PLAN: Discharge home under family's care Post op instructions provided verbally and written prescription(s) were placed in chart WBAT operative foot/ankle in cam boot for approximately three weeks or until incisions have healed Follow-up in 1 week Implants: Artelon allogenic tendon wrap Anesthesia: General-LMA Surgeon: Jacob Felix Shuttle Hand: Naveen Gonzalez Estimated blood loss (mL): 10 Condition: stable Disposition: PACU
[2023-11-13] MEDS: BUPIVACAINE HCL 0.5% PF 50 MG/10 ML VIAL 20 ML INJ (10:46)
--- NOTE | 2023-11-13 10:52 | XR_ITS ---
The [address] [address] Patient Name: ELSIE FUENTES MRN: [id number] date: 1970 Sex: F Assigned Patient Location: [facility] Current Patient Location: Accession/Order Number: [id number] Exam Date: 11/13/2023 11:30 Report Date: 11/13/2023 12:52 At the request of: RITCHIE SALCIDO Procedure: XR foot RT min 3V PROCEDURE: XR foot RT min 3V COMPARISON: 10/25/2023 HISTORY: Postop x-ray pacu FINDINGS: BONES:Interval revision. Removal of 2 surgical joshua across the lateral cuboid calcaneal joint. Change in appearance of a calcaneal wedged spacer. Stable wedge spacer medial cuneiform. Stable talonavicular and posterior talocalcaneal fusion. Remote osteotomy and fixation with a single screw head of the first metatarsal. SOFT TISSUES:Lateral foot soft tissue swelling and subcutaneous emphysema EFFUSION:None visible. OTHER: Negative. XR/XR foot RT min 3V IMPRESSION: Postsurgical changes Electronically authenticated by: NICKI DACOSTA Date: 11/13/2023 12:52
[2023-11-13] MEDS: HYDROMORPHONE HCL 0.5 MG/0.5 ML SYRINGE IV ×3 (11:10→11:26)
[2023-11-13 11:11] LABS: Glucometer 129 mg/dL (74-106)
[2023-11-13] MEDS: ONDANSETRON 4 MG RAPDIS TABLET SL (11:56)
== END 2023-11-13 12:40 | disposition home or self-care (01) ==
PROVIDERS: PCP Family Medicine; Visit Provider Podiatrist Foot & Ankle Surgery
PROC: (CPT 01470; principal; 2023-11-13 08:50)
DX: M19.071 Primary osteoarthritis, right ankle and foot (principal); T84.84XA Pain due to internal orthopedic prosthetic devices, implants and grafts, initial encounter; Z86.16 Personal history of COVID-19; K21.9 Gastro-esophageal reflux disease without esophagitis; F41.0 Panic disorder [episodic paroxysmal anxiety]; F32.A Depression, unspecified; F41.9 Anxiety disorder, unspecified; G47.30 Sleep apnea, unspecified; J45.909 Unspecified asthma, uncomplicated; E78.00 Pure hypercholesterolemia, unspecified; I10 Essential (primary) hypertension; Z90.49 Acquired absence of other specified parts of digestive tract; Z90.710 Acquired absence of both cervix and uterus; M76.821 Posterior tibial tendinitis, right leg; M76.71 Peroneal tendinitis, right leg
CPT/HCPCS: 01470; 01480; 20680; 27675; 36415; 73630; 76000; 82948; C1763; J0665; J0690; J1100; J1170; J1885; J2250; J2405; J2704; J3010; Q0162

== ENCOUNTER 2023-12-11 12:07 | Outpatient (OUT) | payer OTHER, SELFPAY ==
--- OUTSIDE RECORDS SUMMARY | 2023-12-11 12:20 | XMS_ITS | CCD ---
Author Name Unknown Address [address] [facility] [address] [place] [address] Organization [facility] Care Team Providers Care Full Charge Bookkeeper Name Role Phone PARISH GÓMEZ Primary Care Unavailable Eliceo Gómez Jr. Primary Care Provider Gwendolyn Stroud Unavailable Maximus OROSCO, Gwendolyn Unavailable [phone] Annette Harris Unavailable Tita Daugherty Unavailable Erica Kingston Unavailable Eliceo Gómez Unavailable Unavailable Unavailable Allison Arita Unavailable Eliceo Gómez Jr. Primary Care Provider Maximus OROSCO, Gwendolyn Unavailable Eliceo Gómez Unavailable DO Shannon Gómez Primary Care Provider MD Annette Harris Attending Provider Eliceo Gómez Jr. Primary Care Provider Maximus OROSCO, Gwendolyn Unavailable Annette Cartagena Unavailable MD Annette Cartagena Attending Provider WINSTON HANNAH Attending Unavailable WINSTON HANNAH Referring Unavailable ELICEO GÓMEZ JR Primary Care Unavail able ISRA MASTERS Attending Unavailable ISRA MASTERS Referring Unavailable ELICEO GÓMEZ JR Primary Care Unavail able DO Shannon Gómez Primary Care Provider [phone] LORRAINE Duron Attending Provider [phone] JEM Bojorquez, DR BAEZA Consulting Unavailable KAFTAN, [...] SADE Kenny Admitting Unavailable ZIEBER, DR ZAIDA Braden Consulting Unavailable HIGHLANDER, SADE Kenny Consulting Unavailable KAFTAN, DR Isatu LUGO Primary Care Unavailable HAY ., DR BAEZA Consulting Unavailable HAY ., DR BAEZA Attending Unavailable HAY ., DR BAEZA Admitting Unavailable HIGHLANDER, SADE Kenny Attending Unavailable HIGHLANDER, SADE eKnny Admitting Unavailable KAFTAN, DR Isatu LUGO Primary Care Unavailable ZIEBER, DR ZAIDA Braden Consulting Unavailable HIGHLANDER, SADE Kenny Consulting Unavailable [...] ELIAS ., DR ELDER Rios Consulting Unavailable CHEFORNAK, DR NICKI Gale Consulting Unavailable SADE WILDE Consulting Unavailable EDUARDO ., NANCY LAMA Consulting Unavailable GEMBUSDAWNA Consulting Unavailable HIGHLSADE GRANADOS Consulting Unavailable CHANI, SADE Kenny Attending Unavailable SADE WILDE Admitting Unavailable DALIA, DR Isatu LUGO Primary Care Unavailable DALIA, DR Isatu LUGO Primary Care Unavailable PAY ., DR MCDONALD Attending Unavailable PAY ., DR MCDONALD Admitting Unavailable PAY ., DR MCDONALD Consulting Unavailable NIECY DURON Attending Unavailable NIECY DURON Admitting Unavailable DALIA, DR Isatu LUGO Primary Care Unavailable KARLA, DR ZAIDA Braden Consulting Unavailable NIECY DURON Consulting Unavailable DO Anibal Valle Emergency Provider Unavailable Unavailable Unavailable Primary Care Provider UnavailLEV Aaron Referring Unavailable LEV RITTER Attending Unavailable LEX SALMON Attending Unavailable Héctor, Dr. Dipti Fam Attending Unava arben Gómez Jr, Dr. Eliceo Lugo Primary Care Jessica vailable Héctor, Dr. Dipti Fam Attending Unava arben Gómez Jr, Dr. Eliceo Lugo Primary Care Jessica vailable Héctor, Dr. Dipti Fam Referring Unava arben Gómez Jr, Dr. Eliceo Lugo Primary Care Jessica vailable Héctor, Dr. Dipti Fam Attending Unava ilaraceli Gómez Jr., DO, George [facility] PAULINE CHRISTENSEN Attending Unavailable ELICEO GÓMEZ JR Referring Unavailable ELICEO GÓMEZ JR Primary Care Unavailable Dalia Morales DO, George R Primary Care Provider DO Shannon Gómez Primary Care Provider DO Eagle Vazquez Attending Provider Anibal Valle Attending Unavailable Shannon Gómez Primary Care Unavailable Anibal Valle Admitting Unavailable Eagle Vazquez Admitting Unavailable Eagle Vazquez Attending Unavailable Shannon Gómez Primary Care Unavailable Niecy Duron Admitting Unavailable Niecy Duron Attending Unavailable Shannon Gómez [facility] Primary Care Unavailable PAM WANG Referring Unavailable DALIA JENKINS, ELICEO LUGO Primary Care Unavail able JAIRON LAI Attending Unavailable PAM WANG Attending Unavailable DALIA JENKINS, ELICEO LUGO Primary Care Unavail able NELSY CHÁVEZ Attending Unavailable DALIA JENKINS, ELICEO LUGO [facility] Care Unavail able DALIA JENKINS, ELICEO LUGO Primary Care Unavail able WINSTON HANNAH Referring Unavailable KALEIGHA JENKINS, ELICEO LUGO Primary Care Unavail able WINSTON HANNAH Attending Unavailable DALIA JENKINS, ELICEO LUGO [facility] Care Unavail able WINSTON HANNAH Referring Unavailable KAJEROMEAN , ELICEO LUGO [facility] Care Unavail able WINSTON HANNAH Attending Unavailable DALIA JENKINS, ELICEO LUGO Primary Care Unavail able BANMARY Referring Unavailable BANMARY Attending Unavailable DALIA JENKINSELICEO [facility] Care Unavail able DALIA JENKINSELICEO Referring Unavail able DALIA JENKINS, ELICEO LUGO [facility] Care Unavail able ISRA MASTERS Attending Unavailable PAM WANG Attending Unavailable DALIA JENKINS, ELICEO LUGO [facility] Care Unavail able PAM WANG Referring Unavailable PAM WANG Attending Unavailable DALIA JEKNINS, ELICEO LUGO [facility] Care Unavail able DORIS ARIAS Attending Unavailable DALIA JENKINS, ELICEO LUGO [facility] Care Unavail able ELICEO GÓMEZ Attending Unavailable EAGLE VAZQUEZ Attending Unavailable DIPTI ACEVEDO Attending Unavailable EAGLE VAZQUEZ Attending Unavailable ELICEO GÓMEZ Referring Unavailable ELICEO GÓMEZ Attending Unavailable ELICEO GÓMEZ Attending Unavailable ELICEO GÓMEZ Referring Unavailable EAGLE VAZQUEZ Attending Unavailable ELICEO GÓMEZ Referring Unavailable RON KING Attending Unavailable ELICEO GÓMEZ Referring Unavailable EAGLE VAZQUEZ Referring Unavailable RON KING Referring Unavailable CARMEN DORSEY Attending Unavailable CARMEN DORSEY Attending Unavailable CARMEN DORSEY Attending Unavailable GIANA MORALES Attending Unavailable GIANA MORALES Attending Unavailable GIANA MORALES Attending Unavailable CARMEN DORSEY Attending Unavailable GIANA MORALES Attending Unavailable CARMEN DORSEY Attending Unavailable ANNETTE SWANSON Attending Unavailable CARMEN DORSEY Attending Unavailable RADHA CASTREJON Attending Unavailable KAILA, CARMNE Attending Unavailable KAILA, CARMEN Attending Unavailable KAILA, CARMEN Attending Unavailable KAILA, CARMEN Attending Unavailable ANNETTE SWANSON Attending Unavailable KAILA, CARMEN Attending Unavailable MATTEO QUINONES Attending Unavailable SIOMARA MONTAGUE Referring Unavailable LAY, SIOMARA Attending Unavailable ENIXDEB Referring Unavailable GIANA MORALES Attending Unavailable LUCÍA, RADHA Attending Unavailable Allergies Allergy Classification Reported Allergen(s) Allergy Type Date of Onset Reaction(s) Facility (20 sources) risperiDONE; Translations: [RisperDAL TABS] Drug Allergy 0 Intolerance, Other (See Comments) [facility] (1 source) oxyCODONE Drug Allergy [facility] Repository (1 source) risperiDONE Drug Allergy [facility] (3 sources) POISON LAITH EXTRACT; Translations: [POISON LAITH EXTRACT] Drug Allergy 3 Rash [facility] (1 source) risperiDONE Drug Allergy 3 [facility] Repository (1 source) POISON LAITH; Translations: [POISON LAITH] Propensity to adverse reactions to drug (disorder) 2 [facility] Repository Medications Current Medications Medication Drug Class(es) [...] Oxycodone-Acetaminophen Discontinued 1 T AB PO Q6H September 20, 2017 12:00am October 01, 2018 9:41am acyclovir 400 mg oral tablet (13 sources) Herpesvirus Nucleoside Analog DNA Polymerase Inhibitor, Herpes Simplex Virus Nucleoside Analog DNA Polymerase Inhibitor, Herpes Zoster Virus Nucleoside Analog DNA Polymerase Inhibitor Start: 11-29-2020 take 1 tablet by mouth every twelve hours [id number] 200 actuat albuterol 0.09 mg/actuat metered dose inhaler (20 sources) beta2-Adrenergic Agonist Start: 06-05-2023 take 1 puff(s) by inhalation every four to six hours Albuterol Sulfate Active 2 PUFF INHALATION EVERY 4-6 HOURS June 04, 2023 11:00pm Start: 08-26-2022 albuterol (PRO VENTIL,VENTOLIN) nebulizer solution 2.5 mg Start: 09-23-2021 End: 11-17-2022 take 2 puff(s) by mouth every four hours albuterol HFA (PROVENTIL HFA, VENTOLIN HFA) 90 mcg/actuation inhaler inhale 2 puffs by mouth INTO THE LUNGS every 4 hours if needed 0 09/23/2021 11/17/2022 Discontinued Comment on above: inhale 2 puffs by mo [facility] INTO THE LUNGS every 4 hours if needed alendronic acid 70 mg oral tablet (2 sources) Bisphosphonate Start: take 1 tablet by mouth every week Alendronate (Fosamax) 70 mg Tablet Active 70 MG PO every week June 04, 2023 11:00pm atorvastatin 20 mg oral tablet (20 sources) HMG-CoA Reductase Inhibitor Start: take 1 tablet by mouth once daily Atorvastatin (Lipitor) 20 mg Tablet Active 20 MG PO Daily June 04, 2023 11:00pm Comment on above: Take 20 mg by mouth once daily. betamethasone 0.5 mg/ml topical cream (1 source) Corticosteroid betamethasone dipropionate 0.05 % cream Apply 1 Application topically in the morning and 1 Application before bedtime. 0 Active cholecalciferol 0.05 mg oral capsule (20 sources) Vitamin D Start: take 1 capsule by mouth once daily Cholecalciferol (Vitamin D3) (Vitamin D3) 50 mcg (2,000 unit) capsule Active 2000 UNIT PO Daily June 04, 2023 11:00pm take 1 capsule by mouth once [place]oke [place] Cholecalciferol, Vitamin D3, 25 mcg (1,000 unit) cap Take 1,000 Units by mouth once daily. 0 Active Cholecalciferol, Vitamin D3, (VITAMIN D) 25 mcg (1,000 unit) cap Take 1,000 Units by mouth once daily. 0 Active Comment on above: Take 1,000 Units by mouth once daily. 168 hr cloNIDine 0.64331 mg/hr transdermal system (1 source) Central alpha-2 Adrenergic Agonist Start: 3 cloNIDine (CATAPRES-TTS) 0.1 mg/[address] 1 patch on the skin once a week. 0 09/27/2023 Active daridorexant 50 mg tablet (1 source) take 1 tablet by mouth once daily daridorexant 50 mg tablet Take 50 mg by mouth nightly. 0 Active Day[employer] (13 sources) Day[employer]igo Not-Taki ng Dexlansoprazole (Dexilant) 60 mg Capsule,Biphase Delayed Releas (2 sources) Start: 06-05-2023 take 1 capsule by mouth once daily Dexlansoprazole (Dexilant) 60 mg Capsule,Biphase Delayed Releas Active 60 MG PO Daily June 04, 2023 11:00pm Start: 06-05-2023 take 1 capsule by mo [facility] once daily Dexlansoprazole (Dexilant) 60 mg Capsule,Biphase [...] ml enoxaparin sodium 100 mg/ml prefilled syringe (2 sources) Low Molecular Weight Heparin Start: 06-05-2023 inject 40 mg by subcutaneous injection once daily Enoxaparin Active 40 MG SUBCUT Daily June 04, 2023 11:00pm eszopiclone 3 mg oral tablet (12 sources) Start: 06-05-2023 take 1 tablet by mouth once daily at bedtime Eszopiclone (Lunesta) 3 mg Tablet Active 3 MG PO Daily at bedtime June 04, 2023 11:00pm famotidine 40 mg oral tablet (9 sources) Histamine-2 Receptor Antagonist Start: 08-12-2023 End: [...] 1 puff(s) by inhalation in the morning hafdfyspxix-zwoievnwg-clzwancu (TRELEGY ELLIPTA) 100-62.5-25 mcg blister with device Indications: Asthma, unspecified asthma severity, unspecified whether complicated, unspecified whether persistent Inhale 1 puff in the morning. 60 each 5 05/31/2022 Active take 1 puff(s) by inhalation once daily sdelgsrrauy-agslmubhm-icnpcevt (TRELEGY ELLIPTA) 100-62.5-25 mcg Inhale 1 Puff as instructed once daily. 0 Active take 1 puff(s) by inhalation once daily Trelegy Ellipta 100-62.5-25 MCG/INH 1 pu ff Inhalation Once a day Not-Taking Comment on above: Inhale 1 Puff as ins tructed once daily. 1.5 ml fremanezumab-vfrm 150 mg/ml auto-injector (16 sources) Start: 07-19-2023 fremanezumab-vfrm (AJOVY AUTOINJECTOR) 225 mg/1.5 mL Indications: Other migraine without status migrainosus, not intractable inject 1 AND 1/2 milliliters subcutaneously every 28 DAYS 1.5 mL 5 10/23/2023 Active Start: 06-05-2023 Fremanezumab-V frm (Ajovy Autoinjector) 225 mg/1.5 mL auto-injector Active 225 MG SUBCUT every month June 04, 2023 11:00pm Comment on above: inject 1 AND 1/2 mil liliters subcutaneously every 28 DAYS inulin 200 mg / lactobacillus rhamnosus gg [id number] unt oral capsule (1 source) Start: End: take 1 capsule by mouth once daily lactobacillus rhamnosus (CULTURELLE) 10 billion cell -200 mg capsule Take 1 capsule by mouth once daily. 30 capsule 0 06/07/2022 07/07/2022 Active Comment on above: Take 1 capsule by [facility] once daily. iv contrast (will be [...] mg lisdexamfetamine dimesylate 30 mg oral capsule (6 sources) Central Nervous System Stimulant Start: 10-20-2023 VYVANSE 30 mg capsule Take 1 capsule (30 mg total) by mouth. 0 10/20/2023 Active Start: 02-18-2020 End: 06-05-2023 take 1 capsule by mouth once daily Lisdexamfetamine (Vyvanse) 40 mg Capsule Discontinued 40 MG PO Daily February 17, 2020 11:00pm June 05, 2023 9:13am LORazepam 1 mg oral tablet (13 sources) Benzodiazepine Start: 07-19-2023 take 1 tablet by mouth once daily for anxiety LORazepam (ATIVAN) 1 MG tablet take 1 tablet by mouth once daily if needed for anxiety 0 07/19/2023 Active Start: 06-05-2023 take 1 mg by mouth twice daily Lorazepam Active 1 MG PO Twice daily June 04, 2023 11:00pm take 1 tablet by yancy th every twenty-four hours LORazepam 0.5 MG 1 tablet at bedtime as needed Orally Once a day Active ondansetron 4 mg disintegrating oral tablet (20 sources) Serotonin-3 Receptor Antagonist Start: 08-12-2023 take [...] mouth every morning. 0 08/01/2023 Active Start: 09-19-2021 take 1 mg by mouth [...] 2 MG PO Daily at bedtime June 18, 2019 11:00pm Comment on above: Take 2 mg by [...] daily. traMADol hydrochloride 50 mg oral tablet (11 sources) Opioid Agonist Start: 08-09-2023 take 1 tablet by mouth every six hours as needed traMADol (ULTRAM) 50 MG tablet Take 1 tablet by mouth every 6 hours as needed. 0 08/09/2023 Active Start: 07-01-2019 End: 02-18-2020 take 1 tablet by mouth twice daily Tramadol Discontinued 1 TAB PO Twice daily June 30, 2019 11:00pm February 18, 2020 9:26am Start: 06-18-2019 End: 06-19-2019 take 50 mg by mouth twice daily Tramadol Discontinued 50 MG PO Twice daily June 17, 2019 11:00pm June 19, 2019 12:23pm traZODone hydrochloride 50 mg oral tablet (20 sources) Serotonin Reuptake Inhibitor Start: 07-24-2023 take 3 tablets by mouth at bedtime traZODone (DESYREL) 50 MG tablet take 3 tablet by mouth at bedtime 0 07/24/2023 Active Start: 06-05-2023 take 200 mg by mouth once daily at bedtime Trazodone Active 200 MG PO Daily at bedtime June 04, 2023 11:00pm Start: 03-04-2022 take 4 tablets by mo [facility] once daily at bedtime traZODone (DESYREL) 50 mg tablet Take 200 mg by mouth daily at bedtime. 0 03/04/2022 Active Start: 03-04-2022 take 3 tablets by [facility] once daily at bedtime traZODone (DESYREL) 50 mg tablet Take 150 mg by mouth daily at bedtime. 0 03/04/2022 Active Start: 11-02-2018 End: 12-19-2018 Trazodone Discontinued TABLE T November 02, 2018 1:00am December 19, 2018 1:17pm Start: 11-02-2018 End: 12-19-2018 Trazodone Discontinued TABLE T November 02, 2018 12:00am December 19, 2018 12:17pm take 2 tablets by [facility] at bedtime traZODone HCl - 100 MG Oral Tablet TAKE 2 TABLETS AT BEDTIME. Quantity: 0 Refills: 0 Ordered: 13-Jun-2023 DO Active take 1 tablet by [facility] at bedtime traZODone HCl - 150 [...] Comment on above: Take 2 tablets by [facility] every 6 hours as needed for pain. acetaminophen 250 mg / aspirin 250 mg / caffeine 65 mg oral tablet (5 sources) Platelet Aggregation Inhibitor, Nonsteroidal Anti-inflammatory Drug, Central Nervous System Stimulant, Methylxanthine Start: 09-13-20 End: 10-01-20 18 take 1 tablet by mouth every four to six hours Aspirin-Acetaminophe n-Caffeine (Excedrin Migraine) 250-250-65 mg Tablet Discontinued 1 - 2 TAB PO EVERY 4-6 HOURS September 13, 2017 12:00am October 01, 2018 9:40am ALPRAZolam 1 mg oral tablet (5 sources) Benzodiazepine Start: 09-13-20 17 End: 10-01-20 18 take 1 tablet by mouth three times daily Alprazolam Discontinued 1 TAB PO Three times daily September 13, 2017 12:00am October 01, 2018 9:40am amitriptyline hydrochloride 25 mg oral tablet (5 sources) Tricyclic Antidepressant Start: 02-18-20 End: 06-05-20 23 take 125 mg by mouth once daily Amitriptyline Discontinued 125 MG PO Daily February 17, 2020 11:00pm June 05, 2023 9:13am ARIPiprazole 30 mg oral tablet (20 sources) Atypical Antipsychotic Start: 09-27-20 21 take 1 tablet by mouth once daily ARIPiprazole (ABILIFY) 30 mg tablet Take 30 mg by mouth once daily. 0 09/27/2021 Active Start: 09-13-2017 End: 10-01-2018 take 1 tablet by mouth once daily in the morning Aripiprazole (Abilify) 20 mg Tablet Discontinued 1 TAB PO Every morning September 13, 2017 12:00am October 01, 2018 9:40am ARIPiprazole (AB ILIFY MAINTENA) 300 mg suspension,extended [...] Atenolol Active 25 MG PO Daily February 17, 2020 11:00pm Start: 02-18-2020 End: 11-17-2022 take 1 tablet by mouth once daily Atenolol Active 1 TA B PO Daily February 18, 2020 12:00am Comment on above: Take 50 mg by mouth once daily. Take 1 tablet by yancy th every afternoon. brexpiprazole 3 mg oral tablet (5 sources) Atypical Antipsychotic Start: 02-18-20 End: 06-05-20 take 1 tablet by mouth once daily Brexpiprazole (Rexulti) 3 mg Tablet Discontinued 3 MG PO Daily February 17, 2020 11:00pm June 05, 2023 9:13am 12 hr carBAMazepine 400 mg extended release [...] mg by mouth q 12 HR. cefTRIAXone (20 sources) Cephalosporin Antibacterial Start: 07-14-20 16 Rocephin 500 mg Jul, 500 mg celecoxib 200 mg oral capsule (5 sources) Nonsteroidal Anti-inflammatory Drug Start: 06-18-20 19 End: 02-18-20 20 take 1 tablet by mouth once daily Celecoxib Discontinued 1 TAB PO Daily June 17, 2019 11:00pm February 18, 2020 9:25am cephalexin 500 mg oral capsule (5 sources) Cephalosporin Antibacterial Start: 09-20-20 17 End: 10-01-20 18 take 1 capsule by mouth every eight hours Cephalexin (Keflex) 500 mg capsule Discontinued 500 MG PO Q8H 26 05September 20, 2017 12:00am October 01, 2018 9:40am cetirizine hydrochloride 5 mg oral tablet (5 sources) Histamine-1 Receptor Antagonist Start: 10-15-20 18 End: 12-19-19 19 Cetirizine Discontinued 1 TAB PO As Directed October 15, 2018 12:00am December 19, 2018 12:13pm clonazePAM 0.5 mg oral tablet (20 sources) [...] PO Daily at bedtime September 13, 2017 12:00am October 01, 2018 9:41am cyclobenzaprine (FLEXERIL) 10 mg tablet Take by [...] breakfast docusate sodium 50 mg / sennosides, senior care 8.6 mg oral tablet (5 sources) Start: 2016 End: 2017 take 2 tablets by mouth twice daily Sennosides-Docusate Sodium (Dok Plus) 8.6-50 mg Tablet Discontinued 2 TAB PO Twice daily 40 September 20, 2017 12:00am October 01, 2018 9:42am estradiol 1 mg oral tablet (5 sources) Estrogen Start: 2018 End: 2019 take 1 tablet by mouth once daily Estradiol Discontinued 1 TAB PO Daily June 18, 2019 11:00pm February 18, 2020 9:25am 24 hr fexofenadine hydrochloride 180 mg / pseudoephedrine hydrochloride 240 mg extended release oral tablet (5 sources) alpha-Adrenergic Agonist, Histamine-1 Receptor Antagonist Start: 2018 End: 2018 take 1 tablet by mouth once daily in the morning, then take 1 tablet by mouth every twenty-four hours Fexofenadine-Pseudoeph edrine (Ember-D 24 Hour) 180-240 mg Tablet Extended Release 24 Hr Discontinued 1 TAB PO Every morning December 19, 2018 12:00am June 18, 2019 2:04pm fluconazole 150 mg oral tablet (5 sources) Azole Antifungal Start: 2019 End: 2022 Fluconazole (Diflucan) 150 mg tablet Discontinued 150 MG PO Once 1 1 February 17, 2020 11:00pm June 05, 2023 9:13am take one PO, if still symptomatic then take another pill in 72 hrs fluticasone propionate 0.05 mg/actuat metered dose nasal spray (20 sources) Corticosteroid Start: 2017 End: 2022 Fluticasone Propionate (Flonase Allergy Relief) 50 mcg/actuation Berkley,Suspension Discontinued 2 SPRAY INTRANASAL Daily October 15, 2018 12:00am June 18, 2019 2:04pm Comment on above: Use 1 Berkley in each nostril once daily. Fluticasone Propion-Salmeterol (10 sources) Corticosteroid, beta2-Adrenergic Agonist Start: 2018 End: 2022 take 1 puff(s) by inhalation twice daily Fluticasone Propion-Salmeterol (Advair Diskus) 100-50 mcg/dose Blister With Device Discontinued 1 PUFF INHALATION Twice daily June 17, 2019 11:00pm June 05, 2023 9:13am Start: 06-18-2019 End: 06-05-2023 take 1 puff(s) [...] shake. hydrOXYzine hydrochloride 50 mg oral tablet (10 sources) Antihistamine Start: 2019 End: 2022 take 50 mg by mouth once daily at bedtime Hydroxyzine Hcl Discontinued 50 MG PO Daily at bedtime February 17, 2020 11:00pm June 05, 2023 9:13am Start: 12-19-2018 End: 06-18-2019 take 25 mg by mouth twice daily Hydroxyzine Hcl Discontinued 25 MG PO Twice daily December 19, 2018 12:00am June 18, 2019 2:04pm ibuprofen 200 mg oral tablet (3 sources) [...] as needed for pain. lactobacillus rhamnosus gg [id number] unt oral capsule (20 sources) Start: 06-09-2022 [...] Start: 12-27-2021 take 1 capsule by mo [facility] once daily lactobacillus rhamnosus (CULTURELLE) 10 billion cell capsule Take 1 capsule by mouth once daily. 30 capsule 0 12/27/2021 Active Comment on above: Take 1 capsule by mo ut once daily. lamoTRIgine 200 mg oral tablet (11 sources) Mood Stabilizer, Anti-epileptic Agent Start: 12-19-2018 End: 06-05-2023 take 1 tablet by mouth once daily Lamotrigine (Lamictal) 200 mg Tablet Discontinued 200 MG PO Daily December 19, 2018 12:00am June 05, 2023 9:13am Start: 10-15-2018 End: 12-19-2018 take 1 tablet by mouth twice daily Lamotrigine Discontinued 1 TAB PO Twice daily October 15, 2018 12:00am December 19, 2018 12:14pm take 2 tablets by [facility] in the morning lamoTRIgine (LaMICtal) 25 mg tablet Take 2 tablets (50 mg total) by mouth in the morning. 0 Active linaclotide (5 sources) Guanylate Cyclase-C Agonist Start: 10-01-2018 End: [...] mL lurasidone hydrochloride 40 mg oral tablet (5 sources) Atypical Antipsychotic Start: 06-18-2019 End: 02-18-2020 take 1 tablet by mouth once daily Lurasidone (Latuda) 40 mg tablet Discontinued 60 MG PO Daily June 17, 2019 11:00pm February 18, 2020 9:26am methylphenidate hydrochloride 20 mg oral tablet (5 sources) Central Nervous System Stimulant Start: 09-13-2017 End: 10-01-2018 take 1 tablet by mouth twice daily Methylphenidate Hcl Discontinued 1 TAB PO Twice daily September 13, 2017 12:00am October 01, 2018 9:43am methylPREDNISolone 4 mg oral tablet (20 sources) [...] to surgery. mirtazapine 15 mg oral tablet (5 sources) Start: End: take 2 tablets by mouth once daily Mirtazapine (Remeron) 15 mg Tablet Discontinued 30 MG PO Daily December 19, 2018 12:00am February 18, 2020 9:26am montelukast 10 mg oral tablet (5 sources) Leukotriene Receptor Antagonist Start: End: take 10 mg by mouth once daily in the evening Montelukast Discontinued 10 MG PO Every evening October 01, 2018 12:00am December 19, 2018 12:14pm 1 ml morphine sulfate 4 mg/ml cartridge [...] on above: Take 2 tablets by mo [facility] as directed. Take 2 tablet at 6pm, 7pm, and 11pm the evening prior to surgery. nitrofurantoin, macrocrystals 25 mg / nitrofurantoin, monohydrate 75 mg oral capsule (8 sources) Nitrofuran Antibacterial Start: End: take 1 capsule by mouth twice daily at mealtime Nitrofurantoin Monohyd/M-Cryst (Macrobid) 100 mg capsule Discontinued 100 MG PO Twice daily 10 February 17, 2020 11:00pm June 05, 2023 9:13am must administer with a meal/food Comment on above: Take 1 capsule by [facility] twice daily. nystatin [id number] unt/ml topical cream (20 sources) Polyene Antifungal Start: End: nystatin (MYCOSTATIN) cream Indications: Yeast infection of the skin Apply 1 application to affected area twice daily. 30 g 0 02/08/2022 11/17/2022 Discontinued Start: 11-29-2020 take 4 mL by mouth four times daily Start: 11-29-2020 Comment on above: Apply 1 application to affected area twice daily. omeprazole 40 mg delayed release oral capsule (18 sources) Proton Pump Inhibitor Start: 7 End: take 40 mg by mouth twice daily Omeprazole Discontinued 40 MG PO Twice daily September 13, 2017 12:00am June 05, 2023 9:13am Omeprazole Not-T aking 24 hr oxybutynin chloride 10 mg extended release oral tablet (5 sources) Cholinergic Muscarinic Antagonist Start: 10-01-2018 End: 06-19-2019 take 1 tablet by mouth once daily Oxybutynin Chloride (Ditropan Xl) 10 mg Tablet Extended Release 24hr Discontinued 10 MG PO Daily October 01, 2018 12:00am June 19, 2019 12:23pm phenazopyridine hydrochloride 200 mg oral tablet (5 sources) Start: 02-18-2020 End: 06-05-2023 take 1 tablet by mouth every eight hours Phenazopyridine (Pyridium) 200 mg tablet Discontinued 200 MG PO Q8H 6 2 February 17, 2020 11:00pm June 05, 2023 9:13am polyethylene glycol [id number] [id number] mg powder for oral solution (3 sources) [...] as directed. pregabalin 150 mg oral capsule (20 sources) Start: 07-01-2019 End: 02-18-2020 take 1 tablet by mouth once daily Pregabalin (Lyrica) 150 mg Capsule Discontinued 1 TAB PO Daily June 30, 2019 11:00pm February 18, 2020 9:26am Start: 06-18-2019 End: 06-19-2019 take 1 capsule by mouth twice daily Pregabalin (Lyrica) 150 mg Capsule Discontinued 150 MG PO Twice daily June 17, 2019 11:00pm June 19, 2019 12:23pm Start: 11-02-2018 End: 12-19-2018 Pregabalin (Lyrica) 150 mg c apsule Discontinued November 02, 2018 12:00am December 19, 2018 12:15pm Start: 10-01-2018 End: 10-15-2018 take 1 capsule by mouth once daily Pregabalin (Lyrica) 150 mg capsule Discontinued 150 MG PO Daily October 01, 2018 12:00am October 15, 2018 2:24pm prucalopride 2 mg oral tablet (20 sources) Start: 01-05-2022 End: 03-14-2022 take 1 tablet by mouth once daily MOTEGRITY 2 mg tab tablet Indications: Chronic idiopathic constipation take 1 tablet by mouth once daily 30 tablet 6 01/05/2022 03/14/2022 Discontinued (Discontinued by another Health Care Provider) Comment on above: [facility] psyllium 520 mg oral capsule (3 sources) Start: 12-27-2021 End: 02-08-2022 psyllium Husk (METAMUCIL) 0.52 gram capsule Take 1 capsule by mouth as directed. As needed for constipation 0 12/27/2021 02/08/2022 Discontinued (Course of therapy completed) Comment on above: Take 1 capsule by [facility] as directed. As needed for constipation QUEtiapine 200 mg oral tablet (5 sources) Atypical Antipsychotic Start: 10-01-2018 End: 12-19-2018 take 200 mg by mouth once daily Quetiapine Discontinued 200 MG PO Daily October 01, 2018 12:00am December 19, 2018 12:16pm simethicone 125 mg chewable tablet (20 sources) Start: 10-11-2022 take 2 tablets by mouth three times daily as needed Simethicone (GAS RELIEF, SIMETHICONE,) 125 mg chewable tablet Indications: Gas bloat syndrome Take 2 tablets by mouth three times daily as needed. 180 tablet 5 10/11/2022 Active Comment on above: Take 2 tablets by [facility] three times daily as needed. 50 [...] hours as needed. Trelegy Ellipta 100-62.5-25 MCG/INH (13 sources) take 1 puff(s) by inhalation once [...] Comment on above: Take 1,000 mcg by [facility] once daily. vortioxetine 10 mg oral [...] Episodic Conditions associated with dizziness or vertigo (8 sources) Postural dizziness; Translations: [Dizziness and giddiness] [...] Primary insomnia; Translations: [Primary insomnia] Onset: 0 07-07-2020 Chronic Mood disorders (20 sources) Bipolar I disorder; Translations: [Bipolar disorder, unspecified] Onset: 2 10-08-2020 Chronic Mycoses (2 sources) Candidiasis of skin; Translations: [Candidiasis of skin and nail] Episodic Osteoarthritis (20 sources) Arthritis of right acromioclavicular joint; Translations: [Primary osteoarthritis, right shoulder] Onset: 0 09-29-2020 Chronic Other acquired deformities (5 sources) Contracture, right ankle; Translations: [CONTRACTURE RIGHT ANKLE] Onset: 2 Chronic Other aftercare (1 source) Other prison (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; Translations: [OTH CONTRACT ENGINEER CURRENT DRUG THERAPY] Onset: 3 Episodic Other [...] Resolved: 2 Chronic Other non-traumatic joint disorders (2 sources) Pain in unspecified shoulder Episodic Other non-traumatic joint disorders (2 sources) Pain in unspecified knee Episodic Other non-traumatic joint disorders (5 sources) Pain [...] Translations: [Overweight] Episodic Other upper respiratory disease (19 sources) Sinusitis; Translations: [Allergic rhinitis, unspecified] Chronic Other upper respiratory disease (1 source) Allergic rhinitis, unspecified Onset: 2 Resolved: 2 Chronic Other upper respiratory disease (1 source) Allergic rhinitis; Translations: [Allergic rhinitis, unspecified] Onset: 6 09-07-2023 Chronic Other upper respiratory infections (1 source) Chronic sinusitis; Translations: [Chronic sinusitis, unspecified] Onset: 2 07-07-2022 Chronic Other upper respiratory infections (5 sources) Upper respiratory infection; Translations: [Acute upper [...] tibial tendinitis, right leg] Onset: 3 Unclassified (2 sources) Telehealth Audio/video Visit; Translations: [Telehealth Audio/video Visit] Onset: 3 Urinary tract infections (1 source) Chronic interstitial cystitis; Translations: [Interstitial cystitis (chronic) without hematuria] Onset: 3 09-07-2023 Chronic Urinary tract infections (20 sources) Urinary tract infectious disease; Translations: [Urinary tract infection, site not specified] Onset: 2 02-18-2020 Episodic Viral infection (5 sources) Disease caused by 2019-nCoV; Translations: [COVID-19] [...] vomiting, unspecified] Onset: 05-10-2022 Resolved: 05-10-2022 Episodic Nonspecific chest pain (10 sources) Chest pain; Translations: [Chest pain, unspecified] Onset: 06-05-2023 08-15-2021 Episodic Nutritional deficiencies (1 source) Cobalamin deficiency; [...] 09-07-2023 09-07-2023 Episodic Other non-traumatic joint disorders (1 source) [...] Test Name Value Interpretation Reference Range Facility 36 12-05-2023 36 Scheduled Inspire activation appointment 02/06 at 9:15 am. [facility] Hussain 11-27-2023 MARIAN Telephone (WCTRMN) ----- MARY [id number]) 1970 F Date Time Provider Department 11/27/23 PAM WANG WCTRMN During your visit today, we recorded the following information about you: Amber Trimble 11/27/2023 9:32 AM Signed Patient: Mary Leal : 1970 Provider: Pam Wang MD Caller Phone #: [phone] (home) [phone] (cell) Reason for call: boyfriend pulled out bladder stimulator. Has log of 6 days of usage. Would like a call. Message routed to nurse triage Date of next visit: MEREDITH: 08/04/2021 Lex Vieyra RN 11/27/2023 10:18 AM Signed [facility] 11/21/2023: Procedure to be performed: Peripheral Nerve Evaluation (PNE) Indication: Urinary frequency, urinary urgency, overactive bladder The patient tolerated the procedure well. We will see how she does over the next week and plan for interstim stages 1/2 in the OR. MD Mary Delcid reports the PNE stimulator stopped connecting so Kim of [email or web address] said to remove it. She removed the device yesterday and the site looks fine. She states it worked wonderful for relieving her symptoms, and she has completed her diary for 6 days. Informed I will update Dr. Wang for next steps and if she should schedule a follow up appointment. MAKI Ronquillo Shannon, MD 11/27/2023 4:59 PM Signed OUTGOING TELEPHONE CALL Patient reports significant improvement in urinary urgency and frequency symptoms with PNE trial. She has filled out her voiding diary and would like to proceed with implant of Interstim lead and generator. Surgical request placed. Pam Wang Staff Physician, Department of Urogynecology and Pelvic Floor Disorders Allergies As of Date: 11/27/2023 Noted Allergy Reaction RISPERIDONE 07/27/2021 5 - Intolerance Comments: Breast discharge POISON LAITH EXTRACT 04/06/2023 2 - Rash Date Reviewed: 10/10/2023 Reviewed by: José Luis Thorpe RN - Fully Assessed Reason for Visit: Patient Update [1234] Primary Visit Diagnosis:Urinary urgency [R39.15] Other Visit Diagnoses:Urinary frequency [R35.0] OAB (overactive bladder) [N32.81] Urinary incontinence, urge [N39.41] Order(s):SURGICAL REQUEST - ELECTIVE (06/2020) [[id number]] Order #: [id number]: 1 Prescriptions as of 11/27/2023 - ARIPiprazole monohydrate (ABILIFY MAINTENA) 300 mg sers injection Inject 300 mg intramuscularly. - CLONIDINE TRANSDERM. Apply 0.1 mg as directed one time a week. - lamoTRIgine dispersible/chewable (LAMICTAL) 25 mg tablet Take 25 mg by mouth once daily. - atenolol (TENORMIN) 25 mg tablet Take [...] once every month. Do not shake. - Simethicone (GAS RELIEF, SIMETHICONE,) 125 mg chewable tablet Take 2 tablets by mouth three times daily as needed. - traZODone (DESYREL) 50 mg tablet Take 200 mg by mouth daily at bedtime. - atorvastatin (LIPITOR) 20 mg tablet Take 20 mg by mouth once daily. - rOPINIRole (REQUIP) 2 mg tablet Take 1 mg by mouth twice daily. Takes 1 mg in the AM and 2 mg PM - nqelidyvbao-vccwekbwi-dqx anter (TRELEGY ELLIPTA) 100-62.5-25 mcg Inhale 1 Puff as instructed once daily. Problem List As Of Date 11/27/2023 Noted Resolved Impingement syndrome of right shoulder [...] 11/21/2022 Nausea [R11.0] 11/30/2022 Encounter Status:Closed by PAM WANG on 11/27/23 [facility] Hussain 11-25-2023 CNPN Telephone (GYNMN) ----- MARY LEAL ([id number]) 1970 F Date Time Provider Department 11/25/23 RADHA DUNHAM During your visit today, we recorded the following information about you: Radha Dunham MD 11/25/2023 2:43 PM Signed Employee'S Representative Resident Telephone Encounter 11/25/2023 2:40 PM Call duration: 5 min Called pt today regarding question of InterStim. Pt identity verified by name and . Patient underwent temporary interstim placement with Dr. Pam Wang on 11/21/23. She reports she was doing some house cleaning today and the corner of the Tegaderm dressing came off from her Interstim site. She recovered it with a new Tegaderm and now the site is completely covered. Denies abnormal drainage or erythema at the site. No fevers/chills. Feeling well at her baseline. Advised patient to leave Interstim in place with Tegaderm dressing covering it and follow up as scheduled with Dr. Wang. Advised patient to call back if she develops fevers/chills, severe pain at the site, abnormal purulent drainage from the site or erythema at the site. Welcomed patient to call back any time and, if concerned, patients have the autonomy/liberty to decide to go the ED. Pt expressed understanding of and agreement with plan of care. All questions and concerns answered adequately. Discussed with Dr. Mullins, Urogyn fellow section supervisor. Radha Dunham MD Obstetrics and Gynecology, PGY1 Allergies As of Date: 11/25/2023 Noted Allergy Reaction RISPERIDONE 07/27/2021 5 - Intolerance Comments: Breast discharge POISON LAITH EXTRACT 04/06/2023 2 - Rash Date Reviewed: 10/10/2023 Reviewed by: José Luis Thorpe RN - Fully Assessed Reason for Visit: Patient Question [3247] Prescriptions as of 11/25/2023 - ARIPiprazole monohydrate (ABILIFY MAINTENA) 300 mg sers injection Inject 300 mg intramuscularly. - CLONIDINE TRANSDERM. Apply 0.1 mg as directed one time a week. - lamoTRIgine dispersible/chewable (LAMICTAL) 25 mg tablet Take 25 mg by mouth once daily. - atenolol (TENORMIN) 25 mg tablet Take [...] once every month. Do not shake. - Simethicone (GAS RELIEF, SIMETHICONE,) 125 mg chewable tablet Take 2 tablets by mouth three times daily as needed. - traZODone (DESYREL) 50 mg tablet Take 200 mg by mouth daily at bedtime. - atorvastatin (LIPITOR) 20 mg tablet Take 20 mg by mouth once daily. - rOPINIRole (REQUIP) 2 mg tablet Take 1 mg by mouth twice daily. Takes 1 mg in the AM and 2 mg PM - fkyocbcqqmu-oceqkcboy-beq anter (TRELEGY ELLIPTA) 100-62.5-25 mcg Inhale 1 Puff as instructed once daily. Problem List As Of Date 11/25/2023 Noted Resolved Impingement syndrome of right shoulder [...] 11/21/2022 Nausea [R11.0] 11/30/2022 Encounter Status:Closed by RADHA DUNHAM on 11/25/23 Normal [facility] hepatobiliary w pharmon 0 11-23-2023 [place] hepatobiliary w pharm [place] [address] Nuclear Medicine Report Signed Patient: Mary Leal MR#: [id number] : 1970 Acct:[id number] Age/Sex: 53 / F ADM Date: 11/23/23 Loc: [place] Room: Type: [facility] Attending Dr: Eagle Vazquez DO Copies to: Quinton Melendez Jr, DO Paul C Laffay, DO Ordering Provider: Eagle Vazquez DO Date of Service: 11/23/23 [place] hepatobiliary w pharm: RUQ pain, Nausea HIDA SCAN WITH CCK CLINICAL HISTORY: Right upper quadrant pain with nausea after eating for 10 years. COMPARISON: None. TECHNIQUE:Following the intravenous administration of 6.4 mCi of technetium 99m labeled Mebrofenin, anterior imaging of the abdomen was performed out to 60 minutes.The patient was subsequently infused with 1.4 mcg of CCK and imaging was performed an additional 30 minutes. FINDINGS: There is uniform distribution of radionuclide within the liver. Normal gallbladder activity is seen within the first 60 minutes. The gallbladder ejection fraction is 68%. Normal is greater than 40%. [place] hepatobiliary w pharm IMPRESSION: Normal HIDA scan. Impression dictated by: Quinton Melendez Jr., D.OReno11/23/2023 11:56 AM Dictation Location: [facility]- Transcribed By: MARIO 11/23/23 1156 Dictated By: Quinton Melendez Jr, DO 11/23/23 1155 Signed By: 11/23/23 1156 [facility] CNOVon 11-21-2023 CNOV Office Visit (SHERON ) ----- MARY LEAL ([id number]) 1970 F Date Time Provider Department 11/21/23 10:00 AM PAM WANG During your visit today, we recorded the following information about you: Pam Wang MD 11/21/2023 5:03 PM Signed Patient: Mary Leal Date of Service: 11/21/2022 UNIVERSAL PROTOCOL / SAFETY CHECKLIST Procedure to be performed: Peripheral Nerve Evaluation (PNE) Indication: Urinary frequency, urinary urgency, overactive bladder Sign In: A Moment of CARE was completed. Personnel directly involved with the procedure wore the appropriate PPE (Personal Protective Equipment). Patient/Surrogate Stated/Verified: PATIENT VERIFIED(optional for EMERGENT procedures): Patient name, Date of , Relevant allergies, and The intended procedure Time Out Communication: Intended patient and procedure match the source documents. Consent documented and matches the intended procedure. Sign Out: SIGN OUT (optional for EMERGENT procedures): All instruments, equipment, possible retained foreign bodies accounted for. Pam Wang MD Affirmation of Time Out: YES Details of Procedure: The patient was placed in a flat prone position and her lower back was prepped with antiseptics. She was draped in sterile fashion. Her coccyx was marked with a pen, 9cm cephalic to this point along the midline was marked with a pen. A line was drawn 2 cm bilaterally in horizontal fashion and points were marked 2 cm cephalic to these points. A safety time out was done and the correct patient and procedure were identified. Local anesthesia (1% lidocaine) was infiltrated bilaterally. The introducer needle was inserted at approximately 60 degree angle in the patients left side, entering the presumed S3 foramen. The S3 foraminal location was confirmed with positive patient sensation in the rectum and vagina. I then picked a point 4 cm to the patient's right side from the needle. I placed the InterStim needle at an approximately 60 degree angle in a similar fashion, entered the S3 foramen. The S3 foraminal location was confirmed and the temporary electrodes were placed. The stylettes were removed as well as the stylette of the temporary electrodes. The electrodes were tested bilaterally and again similar responses were obtained bilaterally. The temporary electrodes were then taped securely to the skin with Tegaderm. The patient tolerated the procedure well. We will see how she does over the next week and plan for interstim stages 1/2 in the OR. Pam Wang MD ATTESTATION By signing my name below, ITri, attest that this documentation has been prepared under the direction and in the presence of Dr. Pam Wang M.D. Electronically signed, Alex Encinas November 21, 2023 11:57 AM Provider Attestation: IPam MD, personally performed the services described in this documentation. All medical record entries made by the kristaibe were at my direction and in my presence. I have reviewed the chart and discharge instructions (if applicable) and agree that the record reflects my personal performance and is accurate and complete. Referring Provider: SELF [200] Allergies As of Date: 11/21/2023 Noted Allergy Reaction RISPERIDONE 07/27/2021 5 - Intolerance Comments: Breast discharge POISON LAITH EXTRACT 04/06/2023 2 - Rash Date Reviewed: 10/10/2023 Reviewed by: José Luis Thorpe RN - Fully Assessed Primary Visit Diagnosis:Urinary urgency [R39.15] Other Visit Diagnoses:Urinary frequency [R35.0] Overactive bladder [N32.81] Voiding dysfunction [N39.8] Order(s):UA DIP, URINE (POC) [[id number]] Order #: [id number]. #:[id number] [] ondansetron orally disintegrating 4 mg tab(s) (ZOFRAN ODT)Disp: Rfl: Prescriptions as of 11/21/2023 - ARIPiprazole monohydrate (ABILIFY MAINTENA) 300 mg sers injection Inject 300 mg intramuscularly. - CLONIDINE TRANSDERM. Apply 0.1 mg as directed one time a week. - lamoTRIgine dispersible/chewable (LAMICTAL) 25 mg tablet Take 25 mg by mouth once daily. - atenolol (TENORMIN) 25 mg tablet Take [...] once every month. Do not shake. - Simethicone (GAS RE (more content not included)... Normal [facility] BI MAMMOGRAM SCREENING TOMOS YNTHESIS BILATERALon 10-31-2023 [...] IS VERY IMPORTANT TO YOUR HEALTH. THE CITIZEN OF [place] [employer] GUIDELINES RECOMMEND THAT WOMEN 40 [...] DO Normal Not Available Documentationon 10-12-2023 Documentation [id number] Darrian Leal 1970 F Date Provider Department Center 10/12/2023 Kar[facility] Gerardo Heal No family history on file Normal [facility] CNOVon 10-10-2023 CNOV Office Visit (SHERON ) ----- MARY LEAL ([id number]) 1970 F Date Time Provider Department 10/10/23 [...] PFSH obtained by others. Pam Wang MD Enterprise Architect offered: Patient declines. OBJECTIVE: BP 102/60 General: [...] would like to move forward with PNE. [employer] packet given to patient today to review. [...] which included preparing to see the patient, mple-lm-fpct patient care, completing clinical (more content not included)... Normal [facility] XR CHEST 2 VIEWSon 3 XR CHEST 2 VIEWS FINDINGS: Comparison, June 09, 2021. Intervertebral disc space device again identified lower cervical spine. Cardiopericardial silhouette normal. Pulmonary vasculature normal. Lungs clear. IMPRESSION: Impression: No acute cardiopulmonary disease. ELECTRONICALLY SIGNED BY: Rigo Strauss MD Normal Not Available Orders Onlyon 09-19-2023 Orders Only [id number] Darrian Leal en 1970 F Date Provider Department Center 09/19/2023 [facility] Gerardo Heal No family history on file Normal [facility] CNPNon 09-12-2023 CNPN Telephone (WHQ) ----- MARY LEAL ([id number]) 1970 F Date Time Provider Department 09/12/23 PAM WANG [facility] During your visit today, we recorded [...] which included preparing to see the patient, vmea-co-xjva patient care, completing clinical documentation, obtaining and/or reviewing separately obtained history, counseling and educating the patient/family/caregiver, ordering medications, tests, or procedures, and communicating with other HCPs (not separately reported). MD Denver Delcidisten states she had her procedure yesterday and [...] Office will call to schedule cystoscopy. Urogynecology [facility] Main provided: Pam Wang Staff Physician, [...] Diagnosis:History of suburethral sling procedure [Z98.890] Order(s):CYSTOSCOPY [facility] [[id number]] Order #: [id number] Prescriptions as of 09/12/2023 - atenolol (TENORMIN) [...] Take 1,000 (more content not included)... Normal [facility] CNOVon 09-11-2023 CNOV Office Visit (UROSMN ) ----- MARY LEAL ([id number]) 1970 F Date Time Provider Department 09/11/23 [...] RN 09/11/2023 11:37 AM Signed [facility] URODYNAMICS LAB URODYNAMIC [...] allergy: No Females- Is patient : No Enterprise Architect offered:Patient declines B/O UA: YES DIP: UROFLOWMETRY [...] MD 09/11/2023 1:18 PM Signed [facility] FOR [facility]EMALE [...] Jairon Lai MD Referring Provider: PAM WANG [[id number]] Allergies As of Date: 09/11/2023 Noted Allergy Reaction RISPERIDONE 07/27/2021 5 - Intolerance Comments: Breast discharge POISON LAITH EXTRACT 04/06/2023 2 - Rash Date Reviewed: 09/11/2023 Reviewed by: Jenifer Barnard, RN - Fully Assessed Reason for Visit: Consult [173] Primary Visit Diagnosis:Urinary urgency [R39.15] Prescriptions as of 09/11/2023 - atenolol (TENORMIN) 25 mg tablet Take 1 tablet by mouth every afternoon. - AJOVY AUTOINJECTOR 225 mg/1.5 mL auto-injector inject 1 AND 1/2 milliliters subcut (more content not included)... Normal [facility] Orders Onlyon 09-01-2023 Orders Only [id number] Darrian Leal en 1970 F Date Provider Department Center 09/01/2023 [facility] Gerardo Heal No family history on file Normal [facility] Behavioral Health Telemedici neon 08-23-2023 Behavioral Health Telemedicine [id number] Darrian Lealen 1970 Date Provider Department [place] 08/23/2023 [facility] Gerardo Heal No family history on file Level of Service:25195 [place] OFFICE/OUTPATIENT ESTABLISHED MOD MDM 30-39 MIN Normal [facility] Orders Onlyon 08-21-2023 Orders Only [id number] Darrian Leal en 1970 Provider Department [place] 08/21/2023 [facility] Gerardo Heal No family history on file Normal [facility] BASIC METABOLIC PANELon 10-0 Anion gap [Moles/Vol] 1 mmol/L Low 8-12 [facility] Comment on above: Performed By: #### 4 [id number], [id number], [id number], [id number] #### [address] [place] [address] [place] Calcium [Mass/Vol] 9.2 mg/dL Normal 8.4-10.4 [facility] Comment on above: Performed By: #### 4 [id number], [id number], [id number], [id number] #### [address] [place] [address] [place] Chloride [Moles/Vol] 105 mmol/L Normal 96-109 [facility] Comment on above: Performed By: #### 4 [id number], [id number], [id number], [id number] #### [address] [place] [address] [place] CO2 [Moles/Vol] 32 mmol/L High 22-30 [facility] Comment on above: Performed By: #### 4 [id number], [id number], [id number], [id number] #### [address] [address] Creatinine [Mass/Vol] 0.67 mg/dL Normal 0.52-1.04 [facility] Comment on above: Performed By: #### 4 [id number], [id number], [id number], [id number] #### [address] [address] GLOMERULAR FILTRATION RATE ML/MIN/1.73 SQ M.PREDICTED >90.0 Normal >=60.0 [facility] Comment on above: Result Comment: eGFR calculation [...] Kidney Int Suppl.2013;3:1-150 Performed By: #### 4 [id number], [id number], [id number], [id number] #### [address] [address] Glucose [Mass/Vol] 104 mg/dL High 65-100 [facility] Comment on above: Performed By: #### 4 [id number], [id number], [id number], [id number] #### [address] [place] [address] [facility] Potassium [Moles/Vol] 4.6 mmol/L Normal 3.6-5.1 [facility] Comment on above: Performed By: #### 4 [id number], [id number], [id number], [id number] #### [address] [address] [facility] Sodium [Moles/Vol] 138 mmol/L Normal 135-147 [facility] Comment on above: Performed By: #### 4 [id number], [id number], [id number], [id number] #### [address] [place] [address] [place] Urea nitrogen [Mass/Vol] 16 mg/dL Normal 8-26 [facility] Comment on above: Performed By: #### 4 [id number], [id number], [id number], [id number] #### [address] Basic metabolic panel aka Ch em 8on 08-12-2023 Anion gap [Moles/Vol] 1 mmol/L Low 8 - 12 mmol/L [place] [facility] Calcium [Mass/Vol] 9.2 mg/dL 8.4 - 10. 4 mg/dL [facility] Calcium hydrogen phosphate dihydrate crystals LM Ql (Urine sed) 16 mg/dL 8 - 26 mg/dL [facility] Chloride [Moles/Vol] 105 mmol/L 96 - 10 9 mmol/L [facility] CO2 (BldMV) [Moles/Vol] 32 mmol/L High 22 - 30 mmol/L [facility] Creatinine [Mass/Vol] 0.67 mg/dL 0.52 - 1.04 mg/dL [facility] GFR/1.73 sq M.predicted MDRD (S/P/Bld) [Vol rate/Area] - PINF [facility] Comment on above: eGFR calculation [...] 104 mg/dL High 65 - 100 mg/dL [facility] Interpretation and review of laboratory results Abnormal [facility] Potassium [Moles/Vol] 4.6 mmol/L 3.6 - 5.1 mmol/L [facility] Sodium [Moles/Vol] 138 mmol/L 135 - 147 mmol/L [facility] CBC AND DIFFERENTIALon 08-12 ABSOLUTE BASOPHIL 0.0 x10*3/uL Normal 0.0-0.1 [facility] Comment on above: Performed By: #### 4 [id number] #### [address] ABSOLUTE EOSINOPHIL 0.1 x10*3/uL Normal 0.1-0.3 [facility] Comment on above: Performed By: #### 4 [id number] #### [address] ABSOLUTE IMMATURE GRANULOCYTES 0.0 x10*3/uL Normal 0.0-0.1 [facility] Comment on above: Performed By: #### 4 [id number] #### [address] ABSOLUTE LYMPH 1.6 x10*3/uL Normal 1.2-3.3 [facility] Comment on above: Performed By: #### 4 [id number] #### [address] ABSOLUTE MONO 0.3 x10*3/uL Normal 0.2-0.6 [facility] Comment on above: Performed By: #### 4 [id number] #### [address] ABSOLUTE NEUTROPHIL 3.1 x10*3/uL Normal 2.4-6.6 [facility] Comment on above: Performed By: #### 4 [id number] #### [address] Basophils/100 WBC (Bld) 0.8 % Normal [facility] Comment on above: Performed By: #### 4 [id number] #### [address] Eosinophils/100 WBC (Bld) 2.7 % Normal [facility] Comment on above: Performed By: #### 4 [id number] #### [address] Erythrocyte distribution width (RBC) [Ratio] 13.0 % Normal 11.5-14.5 [facility] Comment on above: Performed By: #### 4 [id number] #### [address] Hematocrit (Bld) [Volume fraction] 37.5 % Normal 33.6-46.8 [facility] Comment on above: Performed By: #### 4 [id number] #### [address] Hemoglobin (Bld) [Mass/Vol] 11.8 g/dL Normal 11.7-15.8 [facility] Comment on above: Performed By: #### 4 [id number] #### [address] Immature granulocytes/100 WBC (Bld) 0.4 % Normal [facility] Comment on above: Performed By: #### 4 [id number] #### [address] Lymphocytes/100 WBC (Bld) 31.5 % Normal [facility] Comment on above: Performed By: #### 4 [id number] #### [address] MCH (RBC) [Entitic mass] 26.5 pg Low 27.5-32.3 [facility] Comment on above: Performed By: #### 4 [id number] #### [address] MCHC (RBC) [Mass/Vol] 31.5 g/dL Normal 30.7-35.5 [facility] Comment on above: Performed By: #### 4 [id number] #### [address] MCV (RBC) [Entitic vol] 84.3 fL Normal 80.2-99 [facility] Comment on above: Performed By: #### 4 [id number] #### [address] Monocytes/100 WBC (Bld) 5.4 % Normal [facility] Comment on above: Performed By: #### 4 [id number] #### [address] Neutrophils/100 WBC (Bld) 59.2 % Normal [facility] Comment on above: Performed By: #### 4 [id number] #### [address] NUCLEATED RED BLOOD CELLS AUTO 0.0 % Normal 0.0-1.0 [facility] Comment on above: Performed By: #### 4 [id number] #### [facility] [address] [place] [address] PLATELET COUNT 299 x10*3/uL Normal 150-400 [facility] Comment on above: Performed By: #### 4 [id number] #### [facility] [address] RED BLOOD CELL COUNT 4.45 x10*6/uL Normal 3.60-5.20 [facility] Comment on above: Performed By: #### 4 [id number] #### [facility] [address] WHITE BLOOD CELLS 5.2 x10*3/uL Normal 4.3-10.3 [facility] Comment on above: Performed By: #### 4 [id number] #### [address] CBC with differentialOrdered By: Background Lab on 08-12-2023 Absolute Immature Granulocytes 0.0 [facility] Age [Time] 84.3 fL 80.2 - 99 fL [facility] Age [Time] 26.5 pg Low 27.5 - 32.3 pg [facility] Age [Time] 31.5 g/dL 30.7 - 35.5 g/dL [facility] B. burgdorferi IgM IB Ql (CSF) 31.5 % [facility] Basophils (Bld) [#/Vol] 0.0 10*3/uL [facility] Basophils/100 WBC (Body fld) 0.8 % [facility] Eosinophils (Bld) [#/Vol] 1.6 10*3/uL [facility] Eosinophils (Bld) [#/Vol] 0.3 10*3/uL [facility] Eosinophils (Bld) [#/Vol] 0.1 10*3/uL [facility] Eosinophils/100 WBC (Bld) 2.7 % [facility] Erythrocyte distribution width (RBC) [Ratio] 13.0 % 11.5 - 14.5 % [facility] Hematocrit (Bld) [Volume fraction] 37.5 % 33.6 - 46.8 % [facility] Hexanoylglycine (U) [Moles/Vol] 11.8 g/dL 11.7 - 15.8 g/dL [facility] Immature granulocytes/100 WBC (Bld) 0.4 % [facility] Interpretation and review of laboratory results Abnormal [facility] Monocytes/100 WBC (Bld) 5.4 % [facility] Neurotensin (P) [Mass/Vol] 59.2 % [facility] Neutrophils (Bld) [#/Vol] 3.1 10*3/uL [facility] Nucleated RBC/100 WBC (Bld) [Ratio] 0.0 % 0.0 - 1.0 % [facility] Platelets (Bld) [#/Vol] 299 10*3/uL [facility] RBC (Bld) [#/Vol] 4.45 10*6/uL [employer] WBC (Bld) [#/Vol] 5.2 10*3/uL [facility] CT ABDOMEN PELVIS WITH IV [...] 20 RAC Omni 300 100 ml Normal [facility] HEPATIC FUNCTION PANELon Albumin [Mass/Vol] 4.0 g/dL Normal 3.5-5.0 [facility] Comment on above: Performed By: #### 4 [id number], [id number], [id number], [id number] #### [address] ALK PHOS 104 U/L Normal 24-126 [facility] Comment on above: Performed By: #### 4 [id number], [id number], [id number], [id number] #### [address] [address] ALT [Catalytic activity/Vol] 50 U/L High 4-35 [facility] Comment on above: Performed By: #### 4 [id number], [id number], [id number], [id number] #### [address] AST [Catalytic activity/Vol] 59 U/L High 3-47 [facility] Comment on above: Performed By: #### 4 [id number], [id number], [id number], [id number] #### [address] Bilirubin [Mass/Vol] 0.1 mg/dL Low 0.2-1.6 [facility] Comment on above: Performed By: #### 4 [id number], [id number], [id number], [id number] #### [address] Bilirubin.indirect [Mass/Vol] 0.1 mg/dL Normal <=0.5 [facility] Comment on above: Performed By: #### 4 [id number], [id number], [id number], [id number] #### [address] Protein [Mass/Vol] 6.6 g/dL Normal 6.3-8.2 [facility] Comment on above: Performed By: #### 4 [id number], [id number], [id number], [id number] #### [address] Hepatic Function Panelon Albumin (Syn fld) [Mass/Vol] 4.0 g/dL 3.5 - 5.0 g/dL [facility] Aldosterone (U) [Mass/Vol] 104 U/L 24 - 126 U/L [facility] ALT [Catalytic activity/Vol] 50 U/L High 4 - 35 U/L [facility] AST [Catalytic activity/Vol] 59 U/L High 3 - 47 U/L [facility] Bilirubin [Mass/Vol] 0.1 mg/dL Low 0.2 - 1 .6 mg/dL [facility] Bilirubin.conjugated [Mass/Vol] 0.1 mg/dL NINF - 0.5 mg/dL [facility] Protein [Mass/Vol] 6.6 g/dL 6.3 - 8.2 g/dL [facility] LIPASEon 08-12-2023 Lipase [Catalytic activity/Vol] 11 U/L Low 23-300 [facility] Comment on above: Performed By: #### 4 [id number], [id number], [id number], [id number] #### [address] Lipaseon 08-12-2023 Lipase [Catalytic activity/Vol] 11 U/L Low 23 - 300 U/L [facility] No Panel Informationon 08-12 Extra Tube Hold for add-ons. [facility] Interpretation and review of laboratory results Abnormal [facility] POCT ED/FC/GSC Urine PregOrd ered By: Della Hays on 08-12-2023 Beta HCG ( test) Ql (U) Negative [facility] Interpretation and review of laboratory results Normal [facility] Print Shop Chief Clerk Acceptable yes [facility] TROPONIN Ion 08-12-2023 Troponin I.cardiac [Mass/Vol] ng/mL Normal <=0.033 [facility] Comment on above: Result Comment: Nega tive: No detectable troponin-I. Performed By: #### 4 [id number] #### [place] [address] [place] TROPONIN I SERIESon 08-12-20 Troponin I.cardiac [Mass/Vol] ng/mL Normal <=0.033 [facility] Comment on above: Result Comment: Nega tive: No detectable troponin-I. Performed By: #### 4 [id number], [id number], [id number], [id number] #### [facility] [address] [place] [address] [place] Troponin I (One time)on Interpretation and review of laboratory results Normal [facility] Troponin I.cardiac [Mass/Vol] ng/mL NINF - 0.033 ng/mL [facility] Comment on above: Negative: No detectable troponin-I. [facility] Troponin I - Series (X 3)on 08-12-2023 Interpretation and review of laboratory results Normal [facility] Troponin I.cardiac [Mass/Vol] ng/mL NINF - 0.033 ng/mL [facility] Comment on above: Negative: No detectable troponin-I. [facility] URINALYSIS WITH REFLEX CULTU REon 08-12-2023 Appearance (U) Clear Normal [facility] Comment on above: Performed By: #### 4 [id number] #### [address] BILIRUBIN UA Negative Normal Negative [facility] Comment on above: Performed By: #### 4 [id number] #### [address] Color (U) Yellow Normal [facility] Comment on above: Performed By: #### 4 [id number] #### [address] Glucose Ql (U) Negative Normal Negative [facility] Comment on above: Performed By: #### 4 [id number] #### [address] Ketones Ql (U) Negative Normal Negative [facility] Comment on above: Performed By: #### 4 [id number] #### [address] LEUKOESTERASE Negative Normal Negative [facility] Comment on above: Performed By: #### 4 [id number] #### [address] MUCOUS-URINE Occasional Normal [facility] Comment on above: Performed By: #### 4 [id number] #### [address] [address] Nitrite Ql (U) Negative Normal Negative [facility] Comment on above: Performed By: #### 4 [id number] #### [address] OCCULT BLD Negative Normal Negative [facility] Comment on above: Performed By: #### 4 [id number] #### [address] PH, URINE 5.0 Normal [facility] Comment on above: Performed By: #### 4 [id number] #### [address] Protein Ql (U) Negative Normal Negative [facility] Comment on above: Performed By: #### 4 [id number] #### [address] RBC LM.HPF (Urine sed) [#/Area] /[HPF] Normal <=5 [facility] Comment on above: Performed By: #### 4 [id number] #### [address] SPECIFIC GRAVITY, URINE 1.025 Normal [facility] Comment on above: Performed By: #### 4 [id number] #### [address] SQUAMOUS EPI CELLS 51 /LPF Normal [facility] Comment on above: Performed By: #### 4 [id number] #### [address] UROBILINOGEN UA Negative Normal <2.0 [facility] Comment on above: Performed By: #### 4 [id number] #### [address] WBC LM.HPF (Urine sed) [#/Area] 2 /[HPF] Normal <=5 [facility] Comment on above: Performed By: #### 4 [id number] #### [address] Urinalysis complete W Reflex Culture panel (U)on 08-12-2023 Acetone [Mass/Vol] Negative Negative [employer] Appearance (Body fld) Clear [facility] Bilirubin Ql (U) Negative Negative [facility] Color (Stone) Yellow [facility] G6PD (RBC) [Catalytic activity/Vol] Negative Negative [facility] Hemoglobin Ql (U) NINF [facility] Leukocyte esterase Test strip Ql (U) Negative Negative [facility] Mucor racemosus IgE Qn (S) Occasional /LPF [facility] Nitrite Test strip (U) [Mass/Vol] Negative Negative [facility] pH (Migue fld) 5.0 [facility] Protein (U) [Mass/Vol] Negative Negative [facility] [place] IgE Qn (S) Negative Negative [facility] Specific gravity (U) [Rel density] 1.025 [facility] Spherocytes LM Ql (Bld) 51 /LPF [facility] Urobilinogen Qn (U) Negative NINF - 2.0 [facility] WBC (U) [#/Vol] 2 /uL NINF [facility] 36on 08-02-2023 36 Call placed to patie nt to discuss how often she is taking Miralax. Patient is taking Miralax once daily as instructed. Per Alba Montague she was instructed that she can take it twice a day. Also advised patient that Alba Montague will be consulting with the physician who performed her procedure. Normal [facility] Orders Onlyon 08-02-2023 Orders Only [id number] Darrian Leal 1970 F Date Provider Department Center 08/02/2023 [facility]NA [facility] Gerardo Heal No family history on file [facility] CNOVon 07-31-2023 ANANDA Office Visit (SHERON ) ----- MARY LEAL ([id number]) 1970 F Date Time Provider Department 07/31/23 2:30 PM NELSY CHÁVEZ During your visit today, we recorded the following information about you: Pulse Blood pressure Weight Height 76/minute 136/96 69.9 kg 1.626 m Nelsy Chávez APRN.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 07/31/2023 5:35 PM Signed Female Pelvic Medicine [...] new Pain: no Abnormal Vaginal Discharge: no EDGE STAINER 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 She has no history of an abnormal mammogram with cysts on US LMP: No LMP recorded. Patient has had a hysterectomy.; Menopause 3 years ago; hysterectomy in 2014: Menstrual history: NA; Deliveries: I have confirmed and edited as necessary, [facility]. Nelsy Chávez APRN.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 Enterprise Architect offered: Patient declines. OBJECTIVE: There were no [...] for now d/t side effects Nelsy Chávez APRN.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 I spent a total of 45 minutes on the date of the service which included preparing to see the patient, [id number] patient care, completing clinical documentation, performing a [...] [R35.0] Nocturia [R35.1] Order(s):UA DIP, URINE (POC) [[id number]] Order #: [id number]. #:[id number] 45-LAB URODYNAMICS [facility] [[id number]] Order #: [id number] Prescriptions as of 07/31/2023 - atenolol (TENORMIN) [...] 10 m (more content not included)... Normal [facility] UA DIP, URINE (POC)on 2022 BILIRUBIN UA (POCT) Negative Negative [facility] CLARITY UA (POCT) Clear [facility] COLOR UA (POCT) Yellow [facility] GLUCOSE UA (POCT) Negative Negative mg/dL [facility] Hemoglobin Ql (U) Negative Negative [facility] KETONE UA (POCT) Negative Negative mg/dL [facility] LEUKOCYTES UA (POCT) Negative Negative [facility] NITRITE UA (POCT) Negative Negative [facility] PH UA (POCT) 5.0 4.5 - 8.0 [facility] Protein Ql (U) Negative Negative mg/dL [facility] SPECIFIC GRAVITY UA (POCT) 1.010 1.005 - 1.030 [facility] UROBILINOGEN UA (POCT) 0.2 E.U./dL Brenda l E.U./dL [facility] HISTOLOGY - TISSUE EXAMon LAB AP [...] Clinical Laboratory Improvement Amendments of 1998. Normal [facility] Comment on above: Performed By: #### L [id number] ####[facility] (BEAKER)[address] [place] [address] LAB AP CASE REPORT Normal [facility] Comment on above: Result Comment: Surg ical Pathology Case: [id number] Authorizing Provider: Matteo Quinones MD Collected: 07/25/2023 1126 [facility]23 [facility] Main [place] Pathologist: Boni Benito MD Specimens: A) - Small Intestine, Duodenum, R/O CELIAC B) - Gastric, R/O H PYLORI C) - Distal Esophagus, R/O EOE D) - Proximal Esophagus, R/O EOE E) - Small Intestine, Terminal Ileum, R/O COLITIS Performed By: #### L [id number] ####[facility] (BEAKER)[address] [place] [address] LAB AP CLINICAL INFORMATION Order Diagnoses Normal [facility] Comment on above: Result Comment: K21. 9 - Gastroesophageal reflux disease without esophagitis [ICD-10-CM] R11.0 - Nausea [ICD-10-CM] R19.7 - Diarrhea, unspecified type [ICD-10-CM] Performed By: #### L [id number] ####[facility] ([facility])[address] [facility] [address] LAB AP GROSS DESCRIPTION Normal [facility] Comment on above: Result Comment: A. S [...] Received in formalin in a container labeled Maryjose Leal, Gastric R/O H PYLORI . It consists of 5, soft, jaimes-white tissue biopsy fragments measuring 0.6 x 0.3 x 0.2 cm in aggregate. The entire specimen is submitted in 1 cassette. Please note some minute fragments may not survive processing Leyla Goetz, PGY 1 C. Distal Esophagus. Received in formalin in a container labeled Maryjose Leal, Distal esoph R/O EOE . It consists of 3, soft, jaimes-white tissue biopsy fragments measuring 0.6 x 0.3 x 0.1 cm in aggregate. The entire specimen is submitted in 1 cassette. Leyla Goetz, PGY 1 D. Proximal Esophagus. Received in formalin in a container labeled Maryjonathan Leal, Proximal Eso R/O EOE . It [...] Goetz, PGY 1 Performed By: #### L [id number] ####[facility] ([facility])[address] [place] [address] LAB AP MICROSCOPIC DESCRIPTION Microscopic examination performed. [facility] Comment on above: Performed By: #### L [id number] ####[facility] ([facility])[address] [place] [address] LAB AP REPORT FINAL DIAGNOSIS NARRATIVE [facility] Comment on above: Result Comment: A. D [...] or malignancy identified. Performed By: #### L [id number] ####[facility] ([facility])[address] [place] [address] HP 07-25-2023 H&P reviewed. The rigoberto vishaltory was examined and there are no changes to the H&P. [facility] HP ----- ----- Attestation signed by [...] Imaging Results No image results found. Assessment/Plan aMry Leal is a 53 y.o. 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 Plan EGD and colonoscopy Normal [facility] NURSNOTEon 07-25-2023 NURSNOTE ANASTOMOSIS SITE REACHED Normal [facility] Orders Onlyon 07-25-2023 Orders Only [id number] Darrian Leal en 1970 F Date Provider Department Center 07/25/202301657-KSOYFFILIPE PAZ [facility] No family history on file Normal [facility] POCT GLUCOSE METER UNSOLICIT ED RESULTSon 07-25-2023 Glucose [Mass/Vol] 87 mg/dL Normal 70-105 [facility] Comment on above: Order Comment: Waive d Testing in the ED is performed under the ED CLIA certificate #[id number]. Result Comment: dhol as Performed By: #### L [id number] ####[facility] ([facility]AKER)[address] [place] [address] Orders Onlyon 07-21-2023 Orders Only [id number] Darrian Leal en 1970 F Date Provider Department Center 07/21/2023 69Meredith[facility] No family history on file Normal [facility] Orders Onlyon 07-19-2023 Orders Only [id number] Darrian Leal en 1970 F Date Provider Department Center 07/19/2023 Karli-GIANA [facility] Gerardo Heal No family history on file Normal [facility] Prep for Procedureon 023 Prep for Procedure [id number] Darrian Leal en 1970 F Date Provider Department Center 07/17/2023 Sakina-MATTEO QUINONES [facility] GIS GEORGEFaizan No family history on file Normal [facility] HPon 07-11-2023 HP Formatting of this n ote is different from the original. Images from the original note were not included. [facility] [address] [place] [address] DR LOZA [address] [place] [id number] SUBJECTIVE: Patient ID: Mary Leal is a 53 y.o. female presents today for Chief Complaint Patient presents with New Patient CHUCKIE HPI: Mary Leal is a 53 y.o. female seen at the request of Eliceo Gómez Jr., DO for evaluation of CHUCKIE. Has tried CPAP, no longer wearing it. Was referred by Pauline Christensen MD. Here to inquire about the [employer]ire hypoglossal nerve stimulator. Does not have breast implants. Never smoker. Also reports that her voice is always hoarse and she hacks up phlegm 24/7, thick and foamy. Has bad GERD, Takes Dexilant daily, sees Dr. Montague at [facility]. HISTORY: Past Medical History: Diagnosis Date [...] 03/20/2020 Performed by Noman Mayo MD at [facility] ENDOSCOPY EGD, DILATATION N/A 09/25/2020 Performed by Noman Mayo MD at [facility] ENDOSCOPY FOOT SURGERY 06/25/2020 left foot surgery HYSTERECTOMY LASER LINGUAL TONISILLECTOMY Circumferential 07/08/2021 Performed by Areli Avila MD PhD at [facility] MRI FOOT LEFT NECK SURGERY PLANTAR FASCIECTOMY RELEASE PHARYNGEAL SCAR CPT 41362 Circumferential 07/08/2021 Performed by Areli Avila MD PhD at [facility] RESECTION SUBMUCOSAL NASAL Bilateral 02/11/2021 Performed by Areli Avila MD PhD at [facility] SEPTOPLASTY Circumferential 02/11/2021 Performed by Areli Avila MD PhD at [facility] TONSILLECTOMY Bilateral 02/11/2021 Performed by Areli Avila MD PhD at [facility] uvuloplasty N/A 02/11/2021 Performed by Areli Avila MD PhD at [facility] Family History Problem Relation Age of Onset [...] tablet (3 mg total) by mouth nightly. rtyjsoinrig-scwgrlnmg-dey anter (TRELEGY ELLIPTA) 100-62.5-25 mcg blister with [...] no mor (more content not included)... Normal [facility] Orders Onlyon 06-26-2023 Orders Only [id number] Darrian Leal 1970 F Date Provider Department Center 06/26/2023 GIANA JAMES [facility] Gerardo Heal No family history on file [facility] Office Visit (Cardiology)on 06-13-2023 Follow-up visit Diagnoses/Problems Assessed Chest pain (786.50) (R07.9) Elevated troponin (790.6) (R77.8) Fatigue (780.79) (R53.83) Never a smoker Overweight with body mass index (BMI) of 27 to 27.9 in adult (278.02,V85.23) (E66.3,Z68.27) Orders Elevated troponin IO EKG Electrocardiogram- 12 Lead; Status:Active - Perform Order,Retrospective Authorization; Requested for:[id number]; Overweight with body mass index (BMI) of 27 to 27.9 in adult Healthy Weight Tips; Status:Complete - Retrospective Authorization; Done: [id number] Some eating tips that can help you lose weight.; Status:Complete - Retrospective Authorization; Done: [id number] SocHx: Never a smoker Tobacco Use Screening; Status:Complete; Done: [id number] Patient Instructions Please bring all medicines, vitamins, [...] weakness, dizziness, diaphoresis with recent work-up that Counts include [facility] beds at the [facility] emergency room. Reportedly her troponins are [...] of which are currently being investigated at [facility] (now her fourth GI specialist). Last year while in [place] she had similar issues with elevated troponins in the ED and underwent heart catheterization that did not reveal any specific significant disease, details of the discharge summary are reviewed She underwent recent stress perfusion imaging at [facility] include [facility] beds at the [facility], the report is reviewed, she has no [...] disease, will investigate the troponin rise at [facility] include 234 beds at the [facility] however I believe this is likely a non-[place] troponin elevation, likely associated with underlying inflammatory [...] negative for complaint. Vitals Vital Signs Recorded: [id number] 10:37AM Heart Rate70, Apical Pbtjpxyf282, RUE, Sitting Liskfbcqj97, RUE, Sitting Height5 ft 4 in Nimfhx193 lb BMI Qafgsjvkvy29.46 kg/m2 BSA Calculated1.78 Tobacco Useb) No PHQ-2 [...] Screening.on 023 Adult depression screening assessment No [facility] 320 DO Work Phone: Adult depression screening assessment Yes [facility] io Heart-[place] 320 DO Work Phone: Adult depression screening assessment Moderate (10-14) [facility] yogesho Heart-[place] 320 DO Work Phone: Fall risk assessment a) No falls within the last year [facility] 320 DO Work Phone: Tobacco use status CP b) No [facility] 320 DO Work Phone: Tobacco Screening. 1-Several days [facility] Heart-[place] 320 DO Work Phone: Tobacco Screening. 3-Nearly every day [facility] 320 DO Work Phone: Tobacco Screening. 0-Not at all [facility] Heart-[place] 320 DO Work Phone: Tobacco Screening. Somewhat Difficult [facility] 320 DO Work Phone: STR cardiac stress/lexiscano n 06-09-2023 STR cardiac stress/lexiscan [place] [address] Cardiac Stress Test Signed Patient: Mary Leal MR#: [id number] 863 : 1970 Acct:[id number] Age/Sex: 53 / F ADM Date: 06/05/23 Loc: ER Room: Type: [facility] ER Attending Dr: Copies to: DO [...] By: Marielle Scruggs MD, [facility] 06/09/23 1550 Signed By: 06/10/23 0903 Normal [facility] Telemedici neon 06-08-2023 Behavioral Health Telemedicine [id number] Mary Leal 1970 F Date Provider Department Center 06/08/2023 GIANA JAMES [facility] Gerardo Heal No family history on file Level of Service:09240 [place] OFFICE/OUTPATIENT ESTABLISHED MOD [facility] 30-39 MIN Reason for Visit and Comments: Telehealth Audio/video Visit [871] Normal [facility] [place] mirtha perf SPECT rest stron 06-08-2023 [place] mirtha perf SPECT rest str [place] [address] Nuclear Medicine Report Signed Patient: Mary Leal MR#: [id number] 863 : 1970 Acct:[id number] Age/Sex: 53 / F ADM Date: 06/05/23 Loc: ER Room: Type: [facility] ER Attending Dr: Copies to: DO Marielle Soto MD, [facility] Ordering Provider: Anibal Valle DO Date of [...] available for comparison. Transcribed By: NTS 06/08/23 2386 Dictated By: Marielle Scruggs MD, [facility] 06/08/23 1540 Signed By: 06/09/23 1532 Normal [facility] 36on 06-05-2023 36 Patient calls wonder ing about her calprotectin being high. Please advise Normal [facility] Activated partial thrombopla stin time (aPTT) in platelet poor plasma by coagulation aOrdered By: Anibal Valle on 06-05-2023 aPTT Coag (PPP) [Time] 28.0 s 25.1-36.5 [facility] B-Type Natriuretic Peptideon 06-05-2023 Natriuretic peptide B (Bld) [Mass/Vol] 39.0 pg/mL Normal 5-100 [facility] Comment on above: Result Comment: PERF ORMED BY: [facility] [address] [place] [address] PATHOLOGIST S3B MULTI SENSOR OPERATOR LEVAR CASE M.D. Performed By: #### H S TROP, BNP, BMP, CBC, PTT, PT ####[facility] [id number] [place] [address] [facility] Basic Metabolic Panelon 05-08 Anion gap [Moles/Vol] 10.6 mmol/L Normal 6.0-15.0 [facility] Comment on above: Performed By: #### H S TROP, BNP, BMP, CBC, PTT, PT ####[facility] [id number] [place] [address] [facility] Calcium [Mass/Vol] 9.0 mg/dL Normal 8.6-10.3 [facility] Comment on above: Performed By: #### H S TROP, BNP, BMP, CBC, PTT, PT ####[facility] [id number] [place] [address] [facility] Chloride [Moles/Vol] 108 mmol/L High 98-107 [facility] Comment on above: Performed By: #### H S TROP, BNP, BMP, CBC, PTT, PT ####[place] [id number] [address] CO2 [Moles/Vol] 23.2 mmol/L Normal 21.0-31.0 [facility] Comment on above: Performed By: #### H S TROP, BNP, BMP, CBC, PTT, PT ####[place] [address] [place] [id number] [facility] Creatinine [Mass/Vol] 0.67 mg/dL Normal 0.60-1.20 [facility] Comment on above: Performed By: #### H S TROP, BNP, BMP, CBC, PTT, PT ####[place] [address] [address] Creatinine Clr Calc Pharmacy 97.82 [facility] Comment on above: Result Comment: PERF ORMED BY: [facility] [address] [facility] [place] [address] PATHOLOGIST S3B MULTI SENSOR OPERATOR LEVAR CASE M.D. Performed By: #### H S TROP, BNP, BMP, CBC, PTT, PT ####[address] GFR/1.73 sq M.predicted MDRD (S/P/Bld) [Vol rate/Area] mL/min/{1.73_m2} [facility] Comment on above: Performed By: #### H S TROP, BNP, BMP, CBC, PTT, PT ####[place] [address] [place] [id number] [facility] Glucose [Mass/Vol] 106 mg/dL High 70-100 [facility] Comment on above: Result Comment: [place] Glucose Reference Range is dependent on time and content of last meal. Glucose of more than 200 mg/dL in a nonstressed, ambulatory subject supports the diagnosis of Diabetes Mellitus. ADA recommended reference range Performed By: #### H S TROP, BNP, BMP, CBC, PTT, PT ####[place] [address] [place] [id number] [facility] Potassium [Moles/Vol] 3.8 mmol/L Normal 3.5-5.1 [facility] Comment on above: Performed By: #### H S TROP, BNP, BMP, CBC, PTT, PT ####[facility] [id number] Sodium [Moles/Vol] 138 mmol/L Normal 136-145 [facility] Comment on above: Performed By: #### H S TROP, BNP, BMP, CBC, PTT, PT ####[facility] [id number] Urea nitrogen [Mass/Vol] 10 mg/dL Normal 7-25 [facility] Comment on above: Performed By: #### H S TROP, BNP, BMP, CBC, PTT, PT ####[place] Basophils Auto (Bld) [#/Vol] Ordered By: Anibal Valle on 06-05-2023 Basophils (Bld) [#/Vol] 0.0 10*3/uL 0.0-0.2 [facility] Basophils/100 WBC Auto (Bld) Ordered By: Anibal Valle on 06-05-2023 Basophils/100 WBC (Bld) 0.4 % . [facility] Calcium [Mass/volume] in Ser um or PlasmaOrdered By: Anibal Valle on 06-05-2023 Calcium [Mass/Vol] 9.0 mg/dL 8.6-10.3 [facility] Carbon dioxide, total [Moles /volume] in Serum or PlasmaOrdered By: Anibal Valle on 06-05-2023 CO2 [Moles/Vol] 23.2 mmol/L 21.0-31.0 [facility] Chloride [Moles/volume] in S jay or PlasmaOrdered By: Anibal Valle on 06-05-2023 Chloride [Moles/Vol] 108 mmol/L 98-107 [facility] Complete Blood Count Auto Di ffon 06-05-2023 Basophils (Bld) [#/Vol] 0.0 10*3/uL Normal 0.0-0.2 [facility] Comment on above: Result Comment: PERF ORMED BY: [place] [address] PATHOLOGIST S3B MULTI SENSOR OPERATOR LEVAR CASE M.D. Performed By: #### H S TROP, BNP, BMP, CBC, PTT, PT #### [address] Basophils/100 WBC (Bld) 0.4 % Normal . [facility] Comment on above: Performed By: #### H S TROP, BNP, BMP, CBC, PTT, PT #### [address] Eosinophils (Bld) [#/Vol] 0.1 10*3/uL Normal 0.0-0.45 [facility] Comment on above: Performed By: #### H S TROP, BNP, BMP, CBC, PTT, PT #### [address] Eosinophils/100 WBC (Bld) 1.9 % Normal . [facility] Comment on above: Performed By: #### H S TROP, BNP, BMP, CBC, PTT, PT #### [address] Erythrocyte distribution width (RBC) [Ratio] 13.9 % Normal 11.9-15.3 [facility] Comment on above: Performed By: #### H S TROP, BNP, BMP, CBC, PTT, PT #### [address] Hematocrit (Bld) [Volume fraction] 34.4 % Normal 34.0-46.4 [facility] Comment on above: Performed By: #### H S TROP, BNP, BMP, CBC, PTT, PT #### [address] Hemoglobin (Bld) [Mass/Vol] 11.9 g/dL Normal 11.8-15.4 [facility] Comment on above: Performed By: #### H S TROP, BNP, BMP, CBC, PTT, PT #### [place] [address] [place] Lymphocytes (Bld) [#/Vol] 1.8 10*3/uL Normal 1.00-4.8 [facility] Comment on above: Performed By: #### H S TROP, BNP, BMP, CBC, PTT, PT #### [address] Lymphocytes/100 WBC (Bld) 41.0 % Normal . [facility] Comment on above: Performed By: #### H S TROP, BNP, BMP, CBC, PTT, PT #### [address] MCH (RBC) [Entitic mass] 27.7 pg Normal 24.7-34.3 [facility] Comment on above: Performed By: #### H S TROP, BNP, BMP, CBC, PTT, PT #### [address] MCV (RBC) [Entitic vol] 80.2 fL Normal 80-100 [facility] Comment on above: Performed By: #### H S TROP, BNP, BMP, CBC, PTT, PT #### [address] Mean Corpuscular HGB Conc 34.5 g/dL Normal 32.0-35.0 [facility] Comment on above: Performed By: #### H S TROP, BNP, BMP, CBC, PTT, PT #### [address] Monocytes (Bld) [#/Vol] 0.3 10*3/uL Normal 0.0-0.8 [facility] Comment on above: Performed By: #### H S TROP, BNP, BMP, CBC, PTT, PT #### [place] [address] [place] Monocytes/100 WBC (Bld) 24.18 % High 0.00-20.00 [facility] Comment on above: Result Comment: For adults in ED, MDW > 20.0 may be associated with a higher risk of sepsis during the first 12 hrs of hospital admission Performed By: #### H S TROP, BNP, BMP, CBC, PTT, PT #### [facility] [address] Monocytes/100 WBC (Bld) 7.5 % Normal . [facility] Comment on above: Performed By: #### H S TROP, BNP, BMP, CBC, PTT, PT #### [address] Neutrophils (Bld) [#/Vol] 2.2 10*3/uL Normal 1.8-7.7 [facility] Comment on above: Performed By: #### H S TROP, BNP, BMP, CBC, PTT, PT #### [address] Neutrophils/100 WBC (Bld) 49.2 % Normal . [facility] Comment on above: Performed By: #### H S TROP, BNP, BMP, CBC, PTT, PT #### [address] NRBC% 0.1 /100{WBC} Normal 0-0.5 [facility] Comment on above: Performed By: #### H S TROP, BNP, BMP, CBC, PTT, PT #### [address] Platelet mean volume (Bld) [Entitic vol] 7.4 fL Normal 6.3-10.7 [facility] Comment on above: Performed By: #### H S TROP, BNP, BMP, CBC, PTT, PT #### [facility] [address] [place] [address] Platelets (Bld) [#/Vol] 336 10*3/uL Normal 150-450 [facility] Comment on above: Performed By: #### H S TROP, BNP, BMP, CBC, PTT, PT #### [address] RBC (Bld) [#/Vol] 4.29 10*6/uL Normal 3.60-5.00 [facility] Comment on above: Performed By: #### H S TROP, BNP, BMP, CBC, PTT, PT #### [place] [address] WBC (Bld) [#/Vol] 4.4 10*3/uL Normal 3.8-11.6 [facility] Comment on above: Performed By: #### H S TROP, BNP, BMP, CBC, PTT, PT #### [facility] [address] Creatinine [Mass/volume] in Serum or PlasmaOrdered By: Anibal Valle on 06-05-2023 Creatinine [Mass/Vol] 0.67 mg/dL 0.60-1.20 [facility] ECG 12 lead ECGon 06-05-2023 ECG 12 lead ECG [place] [address] Electrocardiograph Report Signed Patient: Mary Leal MR#: [id number] 863 : 1970 Acct:[id number] Age/Sex: 53 / F ADM Date: 06/05/23 Loc: ER Room: Type: [facility] ER Attending Dr: Ordering Provider: Olayinka [...] was found Confirmed by ANIBAL VALLE DO ([id number]) on 06/05/2023 4:21:05 PM Referred By: Electronically Signed By:ANIBAL VALLE DO Transcribed By: MUS Signed By Anibal Valle DO 06/05 1621 Normal [facility] ECG 12 lead ECG [place] [address] Electrocardiograph Report Signed Patient: Mary Leal MR#: [id number] 863 : 1970 Acct:[id number] Age/Sex: 53 / F ADM Date: 06/05/23 Loc: ER Room: Type: [facility] ER Attending Dr: Ordering Provider: Anibal [...] was found Confirmed by ANIBAL VALLE DO ([id number]) on 06/05/2023 4:21:06 PM Referred By: Electronically Signed By:ANIBAL VALLE DO Transcribed By: MUS Signed By Anibal Valle DO 06/05 1621 Normal [facility] Eosinophils Auto (Bld) [#/Vo l]Ordered By: Anibal Valle on 06-05-2023 Eosinophils (Bld) [#/Vol] 0.1 10*3/uL 0.0-0.45 [facility] Eosinophils/100 WBC Auto (Bl d)Ordered By: Anibal Valle on 06-05-2023 Eosinophils/100 WBC (Bld) 1.9 % . [facility] Erythrocyte distribution wid th Auto (RBC) [Ratio]Ordered By: Anibal Valle on 06-05-2023 Erythrocyte distribution width (RBC) [Ratio] 13.9 % 11.9-15.3 [facility] Glucose [Mass/volume] in Ser um or PlasmaOrdered By: Anibal Valle on 06-05-2023 Glucose [Mass/Vol] 106 mg/dL 70-100 [facility] Comment on above: ADA recommended refe rence rangeRandom Glucose Reference Range is dependent on time and content of last meal. Glucose of more than 200 mg/dL in a nonstressed, ambulatory subject supports the diagnosis of Diabetes Mellitus. Hematocrit Auto (Bld) [Volum e fraction]Ordered By: Anibal Valle on 06-05-2023 Hematocrit (Bld) [Volume fraction] 34.4 % 34.0-46.4 [facility] Hemoglobin [Mass/volume] in BloodOrdered By: Anibal Valle on 06-05-2023 Hemoglobin (Bld) [Mass/Vol] 11.9 g/dL 11.8-15.4 [facility] Laboratory - CoagulationOrde red By: Anibal Valle on 06-05-2023 PT Coag (PPP) [Time] 12.0 s 9.0-12.9 [facility] Leukocytes [#/volume] correc herbert for nucleated erythrocytes in Blood by Automated counOrdered By: Anibal Valle on 06-05-2023 WBC corrected for nucl RBC Auto (Bld) [#/Vol] 4.4 10*3/uL 3.8-11.6 [facility] Lymphocytes Auto (Bld) [#/Vo l]Ordered By: Anibal Vlale on 06-05-2023 Lymphocytes (Bld) [#/Vol] 1.8 10*3/uL 1.00-4.8 [facility] Lymphocytes/100 WBC Auto (Bl d)Ordered By: Anibal Valle on 06-05-2023 Lymphocytes/100 WBC (Bld) 41.0 % . [facility] MCH Auto (RBC) [Entitic mass ]Ordered By: Anibal Valle on 06-05-2023 MCH (RBC) [Entitic mass] 27.7 pg 24.7-34.3 [facility] MCHC Auto (RBC) [Mass/Vol]Or dered By: Anibal Valle on 06-05-2023 MCHC (RBC) [Mass/Vol] 34.5 g/dL 32.0-35.0 [facility] MCV Auto (RBC) [Entitic vol] Ordered By: Anibal Valle on 06-05-2023 MCV (RBC) [Entitic vol] 80.2 fL 80-100 [facility] Monocyte distribution width [Entitic volume] in Blood by AutomatedOrdered By: Anibal Valle on 06-05-2023 Monocyte distribution width Auto (Bld) [Entitic vol] 24.18 % 0.00-20.00 [facility] Comment on above: For adults in ED, MD W > 20.0 may be associated with a higher risk of sepsis during the first 12 hrs of hospital admission Monocytes Auto (Bld) [#/Vol] Ordered By: Anibal Valle on 06-05-2023 Monocytes (Bld) [#/Vol] 0.3 10*3/uL 0.0-0.8 [facility] Monocytes/100 WBC Auto (Bld) Ordered By: Anibal Valle on 06-05-2023 Monocytes/100 WBC (Bld) 7.5 % . [facility] Natriuretic peptide B [Mass/ Vol]Ordered By: Anibal Valle on 06-05-2023 Natriuretic peptide B (Bld) [Mass/Vol] 39.0 pg/mL 5-100 [facility] Neutrophils Auto (Bld) [#/Vo l]Ordered By: Anibal Valle on 06-05-2023 Neutrophils (Bld) [#/Vol] 2.2 10*3/uL 1.8-7.7 [facility] Neutrophils/100 WBC Auto (Bl d)Ordered By: Anibal Valle on 06-05-2023 Neutrophils/100 WBC (Bld) 49.2 % . [facility] No Panel InformationOrdered By: Anibal Valle on 06-05-2023 Estimated GFR (CKD-EPI) > 60.0 mL/Min [facility] Pharmacy Creatinine Clearance (Chem 97.82 [facility] Nucleated erythrocytes [Pres ence] in Blood by Automated countOrdered By: Anibal Valle on 06-05-2023 Nucleated RBC Auto Ql (Bld) 0.1 /100{WBC} 0-0.5 [facility] Partial Thromboplastin Timeo n 06-05-2023 aPTT Coag (Bld) [Time] 28.0 s Normal 25.1-36.5 [facility] Comment on above: Result Comment: PERF ORMED BY: [facility] [address] [place] [address] PATHOLOGIST S3B MULTI SENSOR OPERATOR LEVAR CASE M.D. Performed By: #### H S TROP, BNP, BMP, CBC, PTT, PT ####[facility] [address] [place] [address] [facility] Platelet mean volume Auto (B ld) [Entitic vol]Ordered By: Anibal Valle on 06-05-2023 Platelet mean volume (Bld) [Entitic vol] 7.4 fL 6.3-10.7 [facility] Platelet poor plasma interna tional normalized ratio (INR) by coagulation assay (relatOrdered By: Anibal Valle on 06-05-2023 INR Coag (PPP) [Relative time] 1.0 {INR} [facility] Comment on above: INR Therapeutic Rang e [...] 06-05-2023 Platelets (Bld) [#/Vol] 336 10*3/uL 150-450 [facility] Potassium [Moles/volume] in Serum or PlasmaOrdered By: Anibal Valle on 06-05-2023 Potassium [Moles/Vol] 3.8 mmol/L 3.5-5.1 [facility] Prothrombin Time INRon 06-05 INR Coag (PPP) [Relative time] 1.0 {INR} Normal [facility] Comment on above: Result Comment: INR Therapeutic [...] valves: 3 - 4.5 Performed By: #### H S TROP, BNP, BMP, CBC, PTT, PT #### [facility] [address] PT Coag (PPP) [Time] 12.0 s Normal 9.0-12.9 [facility] Comment on above: Performed By: #### H S TROP, BNP, BMP, CBC, PTT, PT #### [facility] [address] RBC Auto (Bld) [#/Vol]Ordere d By: Anibal Valle on 06-05-2023 RBC (Bld) [#/Vol] 4.29 10*6/uL 3.60-5.00 [facility] Serum or plasma anion gap de terminationOrdered By: Anibal Valle on 06-05-2023 Anion gap [Moles/Vol] 10.6 mmol/L 6.0-15.0 [facility] Sodium [Moles/volume] in Ser um or PlasmaOrdered By: Anibal Valle on 06-05-2023 Sodium [Moles/Vol] 138 mmol/L 136-145 [facility] Troponin I High Sensitivityo n 06-05-2023 Troponin I High Sensitivity 2.5 pg/mL Normal 0.0-15.0 [facility] Comment on above: Result Comment: PERF ORMED BY: [place] [address] PATHOLOGIST S3B MULTI SENSOR OPERATOR LEVAR CASE M.D. Performed By: #### H S TROP #### [facility] [address] Troponin I High Sensitivity 2.6 pg/mL Normal 0.0-15.0 [facility] Comment on above: Result Comment: PERF ORMED BY: [place] [address] PATHOLOGIST S3B MULTI SENSOR OPERATOR LEVAR CASE M.D. Performed By: #### H S TROP, BNP, BMP, CBC, PTT, PT ####[facility] [address] Troponin I.cardiac [Mass/vol ume] in Serum or Plasma by Detection limit <= 0.01 ng/Ordered By: Anibal Valle on 06-05-2023 Troponin I.cardiac DL <= 0.01 ng/mL [Mass/Vol] 2.6 pg/mL 0.0-15.0 [facility] Urea nitrogen [Mass/volume] in Serum or PlasmaOrdered By: Anibal Valle on 06-05-2023 Urea nitrogen [Mass/Vol] 10 mg/dL 7-25 [facility] WBC Auto (Bld) [#/Vol]Ordere d By: Anibal Valle on 06-05-2023 WBC (Bld) [#/Vol] 4.4 10*3/uL 3.8-11.6 [facility] XR chest 1V portableon 06-05 XR chest 1V portable [place] [address] XRay Report Signed Patient: Mary Leal MR#: [id number] 863 : 1970 Acct:[id number] Age/Sex: 53 / F ADM Date: 06/05/23 [...] Andres Bullard M.D.06/05/2023 9:53 AM Dictation Location: [place] [address] Transcribed By: [facility] 06/05/23 0953 Dictated By: Andres Bullard DO 06/05/23 0952 Signed By: 06/05/23 0953 Normal [facility] 29on 05-31-2023 29 Addended by: KASSANDRA MONTAGUE on: 06/13/2023 03:40 PM Modules accepted: Orders Normal [facility] BASIC METABOLIC PANELon 05-07 Anion gap [Moles/Vol] 12 mmol/L Normal 7-20 [facility] Comment on above: Performed By: #### L AB15 #### [facility] (BEAKER) [address] [place] [address] Calcium [Mass/Vol] 9.8 mg/dL Normal 8.6-10.3 [facility] Comment on above: Performed By: #### L AB15 #### [facility] [address] [place] [address] Chloride [Moles/Vol] 105 mmol/L Normal 98-107 [facility] Comment on above: Performed By: #### L AB15 #### [facility] ([facility]) [address] [place] [address] CO2 [Moles/Vol] 27 mmol/L Normal 21-31 [facility] Comment on above: Performed By: #### L AB15 #### [facility] ([facility]) [address] [place] [address] Creatinine [Mass/Vol] 0.75 mg/dL Normal 0.60-1.20 [facility] Comment on above: Performed By: #### L AB15 #### [facility] ([facility]) [address] [place] [address] GLOMERULAR FILTRATION RATE ML/MIN/1.73 SQ M.PREDICTED 96.3 mL/min/1.73m*2 Normal >60.[address] [facility] Comment on above: Result Comment: [facility]???s estimated glomerular filtration rate (eGFR) will no [...] of individuals. Performed By: #### L AB15 #### [facility] ([facility] [address] [place] [address] Glucose [Mass/Vol] 103 mg/dL High 70-100 [facility] Comment on above: Performed By: #### L AB15 #### [facility] ([facility] [address] [facility] [place] [address] Potassium [Moles/Vol] 4.6 mmol/L Normal 3.5-5.1 [facility] Comment on above: Performed By: #### L AB15 #### [facility] ([facility]) [address] [facility] [place] [address] Sodium [Moles/Vol] 139 mmol/L Normal 136-145 [facility] Comment on above: Performed By: #### L AB15 #### [facility] ([facility]) [address] [place] [address] Urea nitrogen [Mass/Vol] 16 mg/dL Normal 7-25 [facility] Comment on above: Performed By: #### L AB15 #### [facility] ([facility]) [address] [place] [address] UREA NITROGEN/CREATININE (MASS RATIO) IN SER/PLAS 21.3 Normal [facility] Comment on above: Performed By: #### L AB15 #### [facility] ([facility]) [address] [place] [address] C-REACTIVE PROTEINon 023 C REACTIVE PROTEIN (MG/L) IN SER/PLAS 2.7 mg/L Normal 0.0-7.0 [facility] Comment on above: Performed By: #### L AB149 #### [facility] ([facility]) [address] [place] [address] CALPROTECTIN STOOLon 023 CALPROTECTIN, FECAL 171 ug/g High <=49 [facility] Comment on above: Result Comment: REFE RENCE INTERVAL: Calprotectin, Fecal by Immunoassay Less than 50 ug/g.........Normal 50-120 ug/g...............Borderline elevated, test should be re-evaluated in 4-6 weeks. 121 ug/g or greater.......Elevated Performed By: [employer] [address] [place] [id number] Collar Padder Blindstitch: Moisés Moreau MD, PhD Performed By: #### L [id number] #### [facility] ([facility]) [address] [place] [address] CBC WITH AUTO DIFFERENTIALon 05-31-2023 Basophils (Bld) [#/Vol] 0.06 10*3/uL Normal 0.00-0.20 [facility] Comment on above: Performed By: #### L [id number] #### [facility] ([facility]) [address] [place] [address] Basophils/100 WBC (Bld) 0.9 % Normal 0.0-1.0 [facility] Comment on above: Performed By: #### L [id number] #### [facility] ([facility]) [address] [place] [address] Eosinophils (Bld) [#/Vol] 0.09 10*3/uL Normal 0.00-0.50 [facility] Comment on above: Performed By: #### L [id number] #### [facility] ([facility]) [address] [facility] [place] [address] Eosinophils/100 WBC (Bld) 1.4 % Normal 0.0-6.0 [facility] Comment on above: Performed By: #### L [id number] #### [facility] ([facility]) [address] [place] [address] Erythrocyte distribution width (RBC) [Ratio] 12.7 % Normal 11.5-15.0 [facility] Comment on above: Performed By: #### L [id number] #### [facility] ([facility]) [address] [place] [address] ERYTHROCYTE MEAN CORPUSCULAR HEMOGLOBIN CONCENTRATION (G/DL) BY AUTOMATED 32.2 g/dL Normal 32.0-35.0 [facility] Comment on above: Performed By: #### L [id number] #### [facility] ([facility] [address] [facility] [place] [address] Hematocrit (Bld) [Volume fraction] 37.9 % Normal 36.0-48.0 [facility] Comment on above: Performed By: #### L [id number] #### [facility] ([facility] [address] [place] [address] Hemoglobin (Bld) [Mass/Vol] 12.2 g/dL Normal 12.0-15.0 [facility] Comment on above: Performed By: #### L [id number] #### [facility] ([facility]) [address] [place] [address] Immature granulocytes (Bld) [#/Vol] 0.02 10*3/uL Normal 0.00-0.20 [facility] Comment on above: Performed By: #### L [id number] #### [facility] ([facility]) [address] [place] [address] Immature granulocytes/100 WBC (Bld) 0.3 % Normal 0.0-1.0 [facility] Comment on above: Performed By: #### L [id number] #### [facility] ([facility] [address] [place] [address] Lymphocytes (Bld) [#/Vol] 2.04 10*3/uL Normal 1.20-4.00 [facility] Comment on above: Performed By: #### L [id number] #### [facility] ([facility] [address] [place] [address] Lymphocytes/100 WBC (Bld) 31.9 % Normal 20.0-45.0 [facility] Comment on above: Performed By: #### L [id number] #### [facility] ([facility] [address] [place] [address] MCH (RBC) [Entitic mass] 27.0 pg Normal 27.0-33.0 [facility] Comment on above: Performed By: #### L [id number] #### [facility] (BEAKER) [address] [place] [address] MCV (RBC) [Entitic vol] 83.8 fL Normal 82.0-98.0 [facility] Comment on above: Performed By: #### L [id number] #### [facility] ([facility]) [address] [place] [address] Monocytes (Bld) [#/Vol] 0.35 10*3/uL Normal 0.10-1.00 [facility] Comment on above: Performed By: #### L [id number] #### [facility] ([facility]) [address] [place] [address] Monocytes/100 WBC (Bld) 5.5 % Normal 5.0-12.0 [facility] Comment on above: Performed By: #### L [id number] #### [facility] ([facility]) [address] [place] [address] Neutrophils (Bld) [#/Vol] 3.83 10*3/uL Normal 1.60-7.60 [facility] Comment on above: Performed By: #### L [id number] #### [facility] ([facility]) [address] [place] [address] Neutrophils/100 WBC (Bld) 60.0 % Normal 40.0-72.0 [facility] Comment on above: Performed By: #### L [id number] #### [facility] ([facility]) [address] [place] [address] NRBC (PER 100 WBCS) BY AUTOMATED COUNT 0.0 % Normal 0 [facility] Comment on above: Performed By: #### L [id number] #### [facility] ([facility]) [address] [place] [address] PLATELETS (10*3/UL) IN BLOOD AUTOMATED COUNT 485 10*3/uL High 150-400 [facility] Comment on above: Performed By: #### L [id number] #### [facility] ([facility]) [address] [place] [address] RBC (Bld) [#/Vol] 4.52 10*6/uL Normal 3.80-5.00 [facility] Comment on above: Performed By: #### L [id number] #### [facility] ([facility] [address] [place] [address] WBC (Bld) [#/Vol] 6.39 10*3/uL Normal 4.00-10.60 [facility] Comment on above: Performed By: #### L [id number] #### [facility] ([facility]) [address] [place] [address] ENTERIC BACTERIA, LIMITED PA RASITE DNA PANELon 05-31-2023 CAMPYLOBACTER SPECIES Negative Normal Negative [facility] Comment on above: Order Comment: Testi [...] the amplified DNA. Performed By: #### L [id number] ####[facility] ([facility])[address] [place] [address] CRYPTOSPORIDIUM (HOMINIS AND PARVUM) Negative Normal Negative [facility] Comment on above: Order Comment: [...] the amplified DNA. Performed By: #### L [id number] ####[facility] ([facility])[address] [place] [address] ENTAMOEBA HISTOLYTICA Negative Normal Negative [facility] Comment on above: Order Comment: Testi [...] the amplified DNA. Performed By: #### L [id number] ####[facility] ([facility])[address] [place] [address] ENTEROTOXIGENIC E. COLI (ETEC) LT/ST Negative Normal Negative [facility] Comment on above: Order Comment: [...] the amplified DNA. Performed By: #### L [id number] ####[facility] ([facility] [place] [address] GIARDIA LAMBLIA Negative Normal Negative [facility] Comment on above: Order Comment: [...] the amplified DNA. Performed By: #### L [id number] ####[facility] ([facility] [place] [address] PLESIOMONAS SHIGELLOIDES Negative Normal Negative [facility] Comment on above: Order Comment: [...] the amplified DNA. Performed By: #### L [id number] ####[facility] (BEAKER)[address] [place] [address] SALMONELLA SPECIES Negative Normal Negative [facility] Comment on above: Order Comment: Testi [...] the amplified DNA. Performed By: #### L [id number] ####[facility] (BEAKER)[address] [place] [address] SHIGA-LIKE TOXIN-PRODUCING E. COLI (STEC) STX1/STX2 Negative Normal Negative [facility] Comment on above: Order Comment: [...] the amplified DNA. Performed By: #### L [id number] ####[facility] (BEAKER)[address] [place] [address] SHIGELLA SPECIES Negative Normal Negative [facility] Comment on above: Order Comment: Testi [...] the amplified DNA. Performed By: #### L [id number] ####[facility] ([facility] [place] [address] VIBRIO SPECIES Negative Normal Negative [facility] Comment on above: Order Comment: [...] the amplified DNA. Performed By: #### L [id number] ####[facility] (BEAKER)[address] [place] [address] YERSINIA ENTEROCOLITICA Negative Normal Negative [facility] Comment on above: Order Comment: [...] the amplified DNA. Performed By: #### L [id number] ####[facility] (BEAKER)[address] [place] [address] IGA 05-31-2023 Magnesium [Mass/Vol] 265 mg/dL Normal 60-413 [facility] Comment on above: Performed By: #### L [id number] #### [facility] (BEAKER) [address] [place] [address] Labon 05-31-2023 Lab [id number] Darrian Leal en 1970 F Date Provider Department Center 05/31/2023 2244-[facility] MP LAB RESOURCE MP DRAW Medical Pavi No family history on file Normal [facility] Office Visiton 05-31-2023 Follow-up visit [id number] Darrian Leal en 1970 F Date Provider Department [place] 05/31/2023 137-[place], [place] MP GI Medical Pavi No family history on file Level of Service:35315 [place] OFFICE/OUTPATIENT NEW MODERATE MDM 45-59 MINUTES Reason for Visit and Comments: Nausea [70] GERD [805744] Abdominal Pain [653319] New Patient [632] Normal [facility] PANCREATIC ELASTASE, FECALon 05-31-2023 PANCREATIC ELASTASE, FECAL 700 ug/g Normal >=100 [facility] Comment on above: Result Comment: REFE RENCE INTERVAL: Pancreatic Elastase Fecal by Immunoassay Less than 100 ug/g............Severe insufficiency 100 - 199 ug/g................Moderate insufficiency 200 ug/g or greater...........Normal INTERPRETIVE INFORMATION: Pancreatic Elastase Fecal by Immunoassay Reference intervals do not apply for infants less than one month old. Performed by [employer], [address] [place] [id number] www.[facility], Moisés Moreau MD, PHD, Lab. Director Performed By: #### L [id number] #### [facility] (BEAKER) [address] [place] [address] SEDIMENTATION RATEon 023 SEDIMENTATION RATE, ERYTHROCYTE 13 mm/hr Normal <=20 [facility] Comment on above: Performed By: #### L [id number] #### [facility] (BEAKER) [address] [place] [address] TISSUE TRANSGLUTAMINASE, IGA on 05-31-2023 TISSUE TRANSGLUTAMINASE, IGA <2 Normal 0-3 [facility] Comment on above: Result Comment: INTE RPRETIVE [...] positive predictive value for disease. Performed By: [facility] [address] [place] [address] Collar Padder Blindstitch: Moisés Moreau MD, PhD Performed By: #### L [id number] #### [facility] (BEAKER) [address] [place] [address] Refillon 05-27-2023 Refill [id number] Darrian Leal en 1970 F Date Provider Department [place] 05/27/2023 GIANA JAMES [facility] Gerardo Heal No family history on file Reason for Visit and Comments: Med Refill [[id number]] Normal [facility] Behavioral Health Telemedici neon 05-22-2023 Behavioral Health Telemedicine [id number] Darrian Lealen 1970 F Date Provider Department Center 05/22/2023 [id number]-YBJLRADHA CASTREJON [facility] Gerardo Heal No family history on file Reason for Visit and Comments: Anxiety [9] Pain [136] Normal [facility] Orders Onlyon 05-18-2023 Orders Only [id number] Darrian Leal en 1970 F Date Provider Department Center 05/18/2023 GIANA JAMES [facility] Gerardo Heal No family history on file Normal [facility] Behavioral Health Telemedici neon 05-17-2023 Behavioral Health Telemedicine [id number] Darrian Lealen 1970 Date Provider Department Center 05/17/2023 167-GIANA MORALES [facility] Gerardo Heal No family history on file Level of Service:70475 [place] OFFICE/OUTPATIENT ESTABLISHED MOD MDM 30-39 MIN Reason for Visit and Comments: Telehealth Audio/video Visit [871] Normal [facility] Behavioral Health Telemedicine [id number] Denver Lealisten 1970 Date Provider Department [place] 05/17/2023 92270-EIJE, RADHA [facility] Gerardo Heal No family history on file Reason for Visit and Comments: Anxiety [9] MDD (Major Depressive Disorder) [401] Normal [facility] Behavioral Health Telemedici neon 04-17-2023 Behavioral Health Telemedicine [id number] Darrian Lealen 1970 Provider Department [place] 04/17/2023 CARMEN CHRISTIANSON [facility] No family history on file Reason for Visit and Comments: Therapy [849] Telehealth Audio/video Visit [871] - Via [employer] [facility] Documentationon 04-14-2023 Documentation [id number] Darrian Leal jonathan 1970 Provider Department [place] 04/14/2023 CARMEN CHRISTIANSON [facility] No family history on file Reason for Visit and Comments: Transfer summary [Other] - Transferring therapy services [facility] Behavioral Health Telemedici neon 04-10-2023 Behavioral Health Telemedicine [id number] ElvisMary 1970 Date Provider Department [place] 04/10/2023 CARMEN CHRISTIANSON [facility] No family history on file Reason for Visit and Comments: Therapy [849] Normal [facility] CBC AUTO DIFFon 04-05-2023 BASO # 0.0 103/ul Normal 0.0-0.1 [facility] Comment on above: Performed By: #### L ACT #### [facility] [address] [place] [address] Dr. Mirian Velasco Basophils/100 WBC (Bld) 0.8 % Normal 0.2-2.0 [facility] Comment on above: Performed By: #### L ACT #### [facility] [address] [place] [address] Dr. Mirian Velasco EO # 0.1 103/ul Normal 0.0-0.7 [facility] Comment on above: Performed By: #### L ACT #### [facility] [address] [place] [address] Dr. Mirian Velasco Eosinophils/100 WBC (Bld) 1.1 % Normal 0.9-7.0 [facility] Comment on above: Performed By: #### L ACT #### [facility] [address] [place] [address] Dr. Mirian Velasco Erythrocyte distribution width (RBC) [Ratio] 13.1 % Normal 11.0-15.0 [facility] Comment on above: Performed By: #### L ACT #### [facility] [address] [place] [address] Dr. Mirian Velasco Hematocrit (Bld) [Volume fraction] 37.6 % Normal 36.0-48.0 [facility] Comment on above: Performed By: #### L ACT #### [facility] [address] [place] [address] Dr. Mirian Vleasco Hemoglobin (Bld) [Mass/Vol] 12.4 g/dL Normal 12.0-16.0 [facility] Comment on above: Performed By: #### L ACT #### [facility] [address] [place] [address] Dr. Mirian Velasco IG # 0.01 10e3/ul Normal 0.00-0.03 [facility] Comment on above: Performed By: #### L ACT #### [facility] [address] [place] [address] Dr. Mirian Velasco IG % 0.2 % Normal 0.0-0.5 [facility] Comment on above: Performed By: #### L ACT #### [facility] [address] [place] [address] Dr. Mirian Velasco LYMPH # 2.5 103/ul Normal 1.2-3.8 [facility] Comment on above: Performed By: #### L ACT #### [facility] [address] [place] [address] Dr. Mirian Velasco Lymphocytes/100 WBC (Bld) 46.2 % Normal 20.5-60.0 [facility] Comment on above: Performed By: #### L ACT #### [facility] [address] [place] [address] Dr. Mirian Velasco MANUAL DIFF REQ NO Normal [facility] Comment on above: Performed By: #### L ACT #### [facility] [address] [place] [address] Dr. Mirian Velasco MCH (RBC) [Entitic mass] 27.1 pg Normal 26.7-34.0 [facility] Comment on above: Performed By: #### L ACT #### [facility] [address] [place] [address] Dr. Mirian Velasco MCHC (RBC) [Mass/Vol] 33.0 g/dL Normal 29.9-35.2 [facility] Comment on above: Performed By: #### L ACT #### [facility] [address] [place] [address] Dr. Mirian Velasco MCV (RBC) [Entitic vol] 82.3 fL Normal 81.0-99.0 [facility] Comment on above: Performed By: #### L ACT #### [facility] [address] [place] [address] Dr. Mirian Velasco MONO # 0.4 103/ul Normal 0.3-0.8 [facility] Comment on above: Performed By: #### L ACT #### [facility] [address] [place] [address] Dr. Mirian Velasco Monocytes/100 WBC (Bld) 7.9 % Normal 1.7-12.0 [facility] Comment on above: Performed By: #### L ACT #### [facility] [address] [place] [address] Dr. Mirian Velasco NEUT # 2.3 103/ul Normal 1.4-6.5 [facility] Comment on above: Performed By: #### L ACT #### [facility] [address] [address] [address] Mirian Velasco Neutrophils/100 WBC (Bld) 43.8 % Normal 43.0-75.0 [facility] Comment on above: Performed By: #### L ACT #### [facility] [address] [address] [address] Mirian Velasco Platelet mean volume (Bld) [Entitic vol] 9.2 fL Critically low 9.5-13.5 [facility] Comment on above: Performed By: #### L ACT #### [facility] [address] [address] [address] Mirian Velasco PLT 318 103/ul Normal 150-450 [facility] Comment on above: Performed By: #### L ACT #### [facility] [address] [address] [address] Mirian Velasco RBC 4.57 106/ul Normal 4.20-5.40 [facility] Comment on above: Performed By: #### L ACT #### [facility] [address] [address] [address] Mirian Velasco WBC 5.3 103/ul Normal 4.0-11.0 [facility] Comment on above: Performed By: #### L ACT #### [facility] [address] [address] [address] Mirian Velasco PROF CHEM 8 (BAS METB)on Anion gap [Moles/Vol] 19.0 mmol/L Normal [facility] Comment on above: Performed By: #### H STROPN, BMP ####[facility] [address] [place] [address]Dr. Mirian Velasco Calcium [Mass/Vol] 9.6 mg/dL Normal 8.5-10.1 [facility] Comment on above: Performed By: #### H STROPN, BMP ####[facility] [address] [place] [address]Dr. Mirian Velasco Chloride [Moles/Vol] 103 mmol/L Normal 98-107 [facility] Comment on above: Performed By: #### H STROPN, BMP ####[facility] [address] [place] [phone]. Mirian Velasco CO2 [Moles/Vol] 23.1 mmol/L Normal 21.0-32.0 [facility] Comment on above: Performed By: #### H STROPN, BMP ####[facility] [address] [place] [phone]. Mirian Velasco Creatinine [Mass/Vol] 0.84 mg/dL Normal 0.55-1.02 [facility] Comment on above: Performed By: #### H STROPN, BMP ####[facility] [address] [place] [phone]. Mirian Velasco EGFR-AF CITIZEN OF [place] >60 Normal >=60 [facility] Comment on above: Performed By: #### H STROPN, BMP ####[facility] [address] [place] [address]Dr. Mercedesnatalie Sanjiv EGFR-NON AF CITIZEN OF [place] >60 Normal >=60 [facility] Comment on above: Performed By: #### H STROPN, BMP ####[facility] [address] [place] [phone]. Mirian Velasco Glucose [Mass/Vol] 129 mg/dL Critically high 74-106 [facility] Comment on above: Performed By: #### H STROPN, BMP ####[facility] [address] [place] [phone]. Mercedesnatalie Velasco Potassium [Moles/Vol] 3.1 mmol/L Critically low 3.5-5.1 [facility] Comment on above: Performed By: #### H STROPN, BMP ####[facility] [address] [place] [phone]. Mirian Velasco Sodium [Moles/Vol] 142 mmol/L Normal 136-145 [facility] Comment on above: Performed By: #### H STROPN, BMP ####[facility] [address] [place] [phone]. Mirian Velasco Urea nitrogen [Mass/Vol] 12.0 mg/dL Normal 7.0-18.0 [facility] Comment on above: Performed By: #### H STROROSALIO, BMP ####[facility] [address] [place], [place] [address]Gn. Mirian Velasco Urea nitrogen/Creatinine [Mass ratio] 14.3 mg/mg Normal [facility] Comment on above: Performed By: #### H FAUSTO, BMP ####[facility] [address] [place], [place] [address]Hl. Mirian Velasco TROPONIN, HIGH SENSITIVITYon 04-05-2023 HSTROP 5.6 pg/mL Normal 4.0-51.3 [facility] Comment on above: Result Comment: CUT- OFF POINTS HAVE BEEN ESTABLISHED BASED ON THE FOURTH UNIVERSAL DEFINITIONS OF MYOCARDIAL INFARCTION. THE UPPER REFERENCE LIMIT (URL) OF TROPONIN, DEFINED THE 99TH PERCENTILE OF cTnI DISTRIBUTION IN A REFERENCE POPULATION, HAS BEEN CONFIRMED THE DECISION THRESHOLD FOR [place] DIAGNOSIS. Performed By: #### H FAUSTO, BMP ####[facility] [address] [place] [phone]. Mirian Velasco Refillon 03-21-2023 Refill [id number] Darrian Leal 1970 F Date Provider Department Center 03/21/2023 GIANA JAMES [facility] Gerardo Heal No family history on file Reason for Visit and Comments: Med Refill [[id number]] Normal [facility] Behavioral Health Telemedici neon 03-20-2023 Behavioral Health Telemedicine [id number] Mary Leal 1970 F Date Provider Department Center 03/20/2023 CARMEN CHRISTAINSON [facility] Gerardo Heal No family history on file Reason for Visit and Comments: Therapy [849] Normal [facility] FAT, FECAL QUALon 03-16-2023 FAT, FECAL - NEUTRAL Normal Normal Normal [facility] Comment on above: Order Comment: Speci men Type: STOOL SPECIMENOrdering Facility: [facility] Address: [address] [place] [id number] Performed By: #### F FATQL ####[facility] [id number] [place] [address] FAT, FECAL - SPLIT Normal Normal Normal [facility] Comment on above: Order Comment: Speci men Type: STOOL SPECIMENOrdering Facility: [facility] Address: [place] [address] Result Comment: INTE RPRETIVE INFORMATION: Fecal Fat Qualitative Neutral fats include the monoglycerides, diglycerides, and triglycerides while split fats are the free fatty acids that are liberated from them. Impaired synthesis or secretion of pancreatic enzymes or bile may cause an increase in neutral fats while an increase in split fats suggests impaired absorption of nutrients. Performed By: [facility] [address] [place] [address] Collar Padder Blindstitch: Moisés Moreau MD, PhD Performed By: #### F FATQL ####[facility] [id number] [place] [address] Behavioral Health Telemedici [place] 03-06-2023 Behavioral Health Telemedicine [id number] Mary Leal 1970 F Date Provider Department [place] 03/06/2023 CARMEN CHRISTIANSON [facility] Gerardo Heal No family history on file Reason for Visit and Comments: Therapy [849] Normal [facility] CBC AUTO DIFFon 03-06-2023 BASO # 0.1 103/ul Normal 0.0-0.1 [facility] Comment on above: Performed By: #### L ACT #### [facility] [address] [address] [address] Mirian Velasco Basophils/100 WBC (Bld) 0.8 % Normal 0.2-2.0 [facility] Comment on above: Performed By: #### L ACT #### [facility] [address] [address] [address] Mirian Velasco EO # 0.1 103/ul Normal 0.0-0.7 [facility] Comment on above: Performed By: #### L ACT #### [facility] [address] [address] [address] Mirian Velasco Eosinophils/100 WBC (Bld) 1.4 % Normal 0.9-7.0 [facility] Comment on above: Performed By: #### L ACT #### [facility] [address] [place] [address] Dr. Mirian Velasco Erythrocyte distribution width (RBC) [Ratio] 13.1 % Normal 11.0-15.0 [facility] Comment on above: Performed By: #### L ACT #### [facility] [address] [address] [address] Mirian Velasco Hematocrit (Bld) [Volume fraction] 37.9 % Normal 36.0-48.0 [facility] Comment on above: Performed By: #### L ACT #### [facility] [address] [place] [address] Dr. Mirian Velasco Hemoglobin (Bld) [Mass/Vol] 12.7 g/dL Normal 12.0-16.0 [facility] Comment on above: Performed By: #### L ACT #### [facility] [address] [place] [address] Dr. Mirian Velasco IG # 0.01 10e3/ul Normal 0.00-0.03 [facility] Comment on above: Performed By: #### L ACT #### [facility] [address] [place] [address] Dr. Mirian Velasco IG % 0.2 % Normal 0.0-0.5 [facility] Comment on above: Performed By: #### L ACT #### [facility] [address] [place] [address] Dr. Mirian Velasco LYMPH # 1.8 103/ul Normal 1.2-3.8 [facility] Comment on above: Performed By: #### L ACT #### [facility] [address] [place] [address] Dr. Mirian Velasco Lymphocytes/100 WBC (Bld) 27.2 % Normal 20.5-60.0 [facility] Comment on above: Performed By: #### L ACT #### [facility] [address] [place] [address] Dr. Mirian Velasco MANUAL DIFF REQ NO Normal [facility] Comment on above: Performed By: #### L ACT #### [facility] [address] [address] [address] Mirian Velasco MCH (RBC) [Entitic mass] 27.5 pg Normal 26.7-34.0 [facility] Comment on above: Performed By: #### L ACT #### [facility] [address] [place] [address] Dr. Mirian Velasco MCHC (RBC) [Mass/Vol] 33.5 g/dL Normal 29.9-35.2 [facility] Comment on above: Performed By: #### L ACT #### [facility] [address] [place] [address] Dr. Mirian Velasco MCV (RBC) [Entitic vol] 82.0 fL Normal 81.0-99.0 [facility] Comment on above: Performed By: #### L ACT #### [facility] [address] [place] [address] Dr. Mirian Velasco MONO # 0.4 103/ul Normal 0.3-0.8 [facility] Comment on above: Performed By: #### L ACT #### [facility] [address] [place] [address] Dr. Mirian Velasco Monocytes/100 WBC (Bld) 5.5 % Normal 1.7-12.0 [facility] Comment on above: Performed By: #### L ACT #### [facility] [address] [place] [address] Dr. Mirian Velasco NEUT # 4.3 103/ul Normal 1.4-6.5 [facility] Comment on above: Performed By: #### L ACT #### [facility] [address] [place] [address] Dr. Mirian Velasco Neutrophils/100 WBC (Bld) 64.9 % Normal 43.0-75.0 [facility] Comment on above: Performed By: #### L ACT #### [facility] [address] [place] [address] Dr. Mirian Velasco Platelet mean volume (Bld) [Entitic vol] 9.4 fL Critically low 9.5-13.5 [facility] Comment on above: Performed By: #### L ACT #### [facility] [address] [address] [address] Mirian Velasco PLT 317 103/ul Normal 150-450 [facility] Comment on above: Performed By: #### L ACT #### [facility] [address] [address] [address] Mirian Velasco RBC 4.62 106/ul Normal 4.20-5.40 [facility] Comment on above: Performed By: #### L ACT #### [facility] [address] [address] [address] Mirian Velasco WBC 6.6 103/ul Normal 4.0-11.0 [facility] Comment on above: Performed By: #### L ACT #### [facility] [address] [address] [address] Mirian Velasco CULTURE BLOODon 03-06-2023 Microscopic examination of blood, culture Culture Observations: NO GROWTH AT 5 DAYS. Normal [facility] Comment on above: Performed By: #### B LDCX2 ####[facility] [id number] [address]Dr. Mirian Velasco Microscopic examination of blood, culture Culture Observations: NO GROWTH AT 5 DAYS. Normal [facility] Comment on above: Performed By: #### B LDCX1 #### [facility] [address] [place] [address] Dr. Mirian Velasco LACTATE/LACTIC ACIDon 2022 Lactate [Moles/Vol] 2.2 mmol/L Critically high 0.4-2.0 [facility] Comment on above: Performed By: #### L ACT #### [facility] [address] [place] [address] Dr. Mirian Velasco LIPASEon 03-06-2023 Lipase [Catalytic activity/Vol] 53.0 U/L Critically low 73.0-393.0 [facility] Comment on above: Performed By: #### L ACT #### [facility] [address] [address] [address] Mirian Velasco PROF 14(COMP METB)on 023 Albumin [Mass/Vol] 3.4 g/dL Normal 3.4-5.0 [facility] Comment on above: Performed By: #### L ACT #### [facility] [address] [address] [address] Mirian Velasco Albumin/Globulin [Mass ratio] 1.0 {ratio} Normal [facility] Comment on above: Performed By: #### L ACT #### [facility] [address] [address] [address] Mirian Velasco ALP [Catalytic activity/Vol] 123 U/L Critically high 46-116 [facility] Comment on above: Performed By: #### L ACT #### [facility] [address] [address] [address] Mirian Velasco ALT [Catalytic activity/Vol] 33 U/L Normal 14-59 [facility] Comment on above: Performed By: #### L ACT #### [facility] [address] [place] [address] Dr. Mirian Velasco Anion gap [Moles/Vol] 13.1 mmol/L Normal [facility] Comment on above: Performed By: #### L ACT #### [facility] [address] [place] [address] Dr. Mirian Velasco AST [Catalytic activity/Vol] 31 U/L Normal 15-37 [facility] Comment on above: Performed By: #### L ACT #### [facility] [address] [place] [address] Dr. Mirian Velasco Bilirubin [Mass/Vol] 0.3 mg/dL Normal 0.2-1.0 [facility] Comment on above: Performed By: #### L ACT #### [facility] [address] [address] [address] Mirian Velasco Calcium [Mass/Vol] 8.9 mg/dL Normal 8.5-10.1 [facility] Comment on above: Performed By: #### L ACT #### [facility] [address] [address] [address] Mirian Velasco Chloride [Moles/Vol] 107 mmol/L Normal 98-107 [facility] Comment on above: Performed By: #### L ACT #### [facility] [address] [address] [address] Mirian Velasco CO2 [Moles/Vol] 25.6 mmol/L Normal 21.0-32.0 [facility] Comment on above: Performed By: #### L ACT #### [facility] [address] [address] [address] Mirian Velasco Creatinine [Mass/Vol] 0.70 mg/dL Normal 0.55-1.02 [facility] Comment on above: Performed By: #### L ACT #### [facility] [address] [address] [address] Mirian Velasco EGFR-AF CITIZEN OF [place] >60 Normal >=60 [facility] Comment on above: Performed By: #### L ACT #### [facility] [address] [address] [address] Mirian Velasco EGFR-NON AF CITIZEN OF [place] >60 Normal >=60 [facility] Comment on above: Performed By: #### L ACT #### [facility] [address] [address] [address] Mirian Velasco Globulin (S) [Mass/Vol] 3.4 g/dL Normal [facility] Comment on above: Performed By: #### L ACT #### [facility] [address] [address] [address] Mirian Velasco Glucose [Mass/Vol] 125 mg/dL Critically high 74-106 [facility] Comment on above: Performed By: #### L ACT #### [facility] [address] [address] [address] Mirian Velasco Potassium [Moles/Vol] 3.7 mmol/L Normal 3.5-5.1 [facility] Comment on above: Performed By: #### L ACT #### [facility] [address] [address] [address] Mirian Velasco Protein [Mass/Vol] 6.8 g/dL Normal 6.4-8.2 [facility] Comment on above: Performed By: #### L ACT #### [facility] [address] [address] [address] Mirian Velasco Sodium [Moles/Vol] 142 mmol/L Normal 136-145 [facility] Comment on above: Performed By: #### L ACT #### [facility] [address] [place] [address] Dr. Mirain Velasco Urea nitrogen [Mass/Vol] 16.0 mg/dL Normal 7.0-18.0 [facility] Comment on above: Performed By: #### L ACT #### [facility] [address] [address] [address] Mirian Velasco Urea nitrogen/Creatinine [Mass ratio] 22.9 mg/mg Normal [facility] Comment on above: Performed By: #### L ACT #### [facility] [address] [place] [address] Dr. Mirian Velasco PROTIMEon 03-06-2023 INR Coag (PPP) [Relative time] {INR} Normal [facility] Comment on above: Performed By: #### P T #### [facility] [address] [place] [address] Dr. Mirian Velasco INR GUIDELINES SEE BELOW Normal [facility] Comment on above: Result Comment: SAMEER RED INR: 2.0 - 3.0 CONDITIONS NOT LISTED BELOW 2.5 - 3.5 FOR PROSTHETIC HEART VALVE REPLACEMENT 2.5 - 3.5 RECURRENT THROMBOSIS Performed By: #### P T #### [facility] [address] [place] [address] Dr. Mirian Velasco PT Coag (PPP) [Time] 9.8 s Normal 9.0-11.6 [facility] Comment on above: Performed By: #### P T #### [facility] [address] [place] [address] Dr. Mirian Velasco TROPONIN, HIGH SENSITIVITYon 03-06-2023 HSTROP 4.4 pg/mL Normal 4.0-51.3 [facility] Comment on above: Result Comment: CUT- OFF POINTS HAVE BEEN ESTABLISHED BASED ON THE FOURTH UNIVERSAL DEFINITIONS OF MYOCARDIAL INFARCTION. THE UPPER REFERENCE LIMIT (URL) OF TROPONIN, DEFINED THE 99TH PERCENTILE OF cTnI DISTRIBUTION IN A REFERENCE POPULATION, HAS BEEN CONFIRMED THE DECISION THRESHOLD FOR [place] DIAGNOSIS. Performed By: #### L ACT #### [facility] [address] [address] [address] Mirian Velasco Bacteria identified Aer cx N om (Unsp spec)Ordered By: Niecy Duron on 03-02-2023 Superficial Wound Culture Methicillin Resis Staph Aureus [facility] Superficial Wound Cultureon 03-02-2023 Superficial Wound Culture [...] RESISTANT TO ALL B-LACTAM DRUGS. PERFORMED BY: [facility] [address] [place] [address] PATHOLOGIST S3B MULTI SENSOR OPERATOR LEVAR CASE M.D. [facility] Comment on above: Performed By: #### C USUP #### [place] [address] Clinical Supporton 3 Clinical Support [id number] Darrian Leal 1970 F Date Provider Department Center 02/27/2023 [facility] Gerardo Heal No family history on file Reason for Visit and Comments: Therapy [849] [facility] 36on 02-20-2023 36 I just sent the scri pt over and signed her note. Normal [facility] Behavioral Health Telemedici neon 02-20-2023 Behavioral Health Telemedicine [id number] ElvisMary 1970 F Date Provider Department Center 02/20/2023 3941-CARMEN DORSEY [facility] Gerardo Heal No family history on file Reason for Visit and Comments: Therapy [849] Normal [facility] CT LSPINE WO CONon 3 CT LSPINE [...] by: NANCY BELLE Date: 2023-02-19 06:42 Normal [facility] 36on 02-17-2023 36 Scientist Engineer spoke with rigoberto montemayor in regards to lunesta, patient reports Giana was increasing the lunesta to 3mg, rewriter read last note plan reports 2mg lunesta. Scientist Engineer will attempt to contact Giana Morales. Scientist Engineer is covering while Giana is out of the clinic. Normal [facility] 36 Patient needs Lunest a sent to [facility] in [place]. Had an appt yesterday with you, and pharmacy does not have. Normal [facility] Telephoneon 02-17-2023 Telephone [id number] ElvisDarrian en 1970 F Date Provider Department Center 02/17/2023 Karli-GIANA MORALES [facility] Gerardo Heal No family history on file Reason for Visit and Comments: Medication Question [827] - Pt is upset that her Lunesta has not been increased as discussed. Normal [facility] Telephone [id number] Darrian Leal en 1970 F Date Provider Department Center 02/17/2023PONCE CASAREZ [facility] Gerardo Heal No family history on file [facility] Behavioral Health Telemedici neon 02-16-2023 Behavioral Health Telemedicine [id number] Denver Lealisten 1970 Date Provider Department Center 02/16/2023 GIANA JAMES [facility] Gerardo Heal No family history on file Level of Service:16738 [place] OFFICE/OUTPATIENT ESTABLISHED MOD MDM 30-39 MIN Reason for Visit and Comments: Telehealth Audio/video Visit [871] - [email or web address] [facility] Behavioral Health Telemedici neon 02-13-2023 Behavioral Health Telemedicine [id number] Denver Lealisten 1970 Date Provider Department Center 02/13/2023 [facility]MEN [facility] Gerardo Heal No family history on file Reason for Visit and Comments: Therapy [849] - [facility] Behavioral Health Telemedici neon 02-06-2023 Behavioral Health Telemedicine [id number] Denver Lealisten 1970 Date Provider Department Center 02/06/2023 CARMEN [facility]IAN[facility] Gerardo Heal No family history on file Reason for Visit and Comments: Therapy [849] [facility] Behavioral Health Telemedici neon 02-02-2023 Behavioral Health Telemedicine [id number] Denver Lealisten 1970 Date Provider Department Center 02/02/2023 GIANA JAMES [facility] Gerardo Heal No family history on file Level of Service:91037 [place] OFFICE/OUTPATIENT ESTABLISHED MOD MDM 30-39 MIN Reason for Visit and Comments: Telehealth Audio/video Visit [871] - [email or web address] [facility] Behavioral Health Telemedici neon 01-23-2023 Behavioral Health Telemedicine [id number] Denver Lealisten 1970 F Date Provider Department Center 01/23/2023 [facility]MEN [facility] Gerardo Heal No family history on file Reason for Visit and Comments: Therapy [849] [facility] 36on 01-16-2023 36 Spoke with pt to raymond mcgill her appointment this morning was cancelled per her request. Pt stated she wasn't feeling well. Her next appointment is scheduled for 01/23/23. [facility] 36 Patient called and w ants a return call from provider. [facility] Hussain 01-16-2023 CNPN Telephone ([facility]ACHES) ----- MARY LEAL ([id number]) 1970 F Date Time Provider Department 01/16/23 MOUNIKA HERNANDEZ During your visit today, we recorded the following information about you: Mounika Hernandez PA-C 01/16/2023 1:09 PM Signed Patient was scheduled for virtual PACC appt at 1300 today. Patient did not check in for visit. Called patient at [phone] to see if they needed any assistance [...] the AM and 4 mg PM - eyhgsropuax-awnmyitsx-bqz anter (TRELEGY ELLIPTA) 100-62.5-25 mcg Inhale 1 [...] Status:Closed by MOUNIKA HERNANDEZ on 01/16/23 Normal [facility] HISTORY PHYSICALon HISTORY PHYSICAL HNO ID: [id number] Author: Mounika Hernandez PA-C Service: ? Author Type: Physician Market Gardener Type: HANDP Filed: 01/16/2023 1:24 PM Note Text: This is a virtual visit using [employer] video visit. It required patient-provider interaction for the medical decision making as documented below. I have communicated my name and active licensure. The patient's identity and physical location were verified at the time of this visit. Either the patient or their legal investment representative has been informed of the risks and benefits of and alternatives to treatment through a remote evaluation and consents to proceed with the evaluation remotely. Surgeon: Winston Hannah DO Type of surgery: GEN SURG: POP Patient scheduled for surgery on 02/08/23 . Surgery Location: [facility] Diagnosis: Preop examination (primary encounter diagnosis) Nausea [...] in the AM and 4 mg PM xyejkxgapdg-nnkzbwktg-yfs anter (TRELEGY ELLIPTA) 100-62.5-25 mcg Inhale 1 [...] PA-C January 16, 2023 12:36 PM Normal [facility] Telephoneon 01-16-2023 Telephone [id number] Darrian Leal en 1970 Date Provider Department Center 01/16/2023 [facility] Gerardo Heal No family history on file Reason for Visit and Comments: Appointment [375] Normal [facility] Telephone [id number] Darrian Leal en 1970 F Date Provider Department Center 01/16/2023 SE SINGH [facility] Gerardo Heal No family history on file Normal [facility] Hussain 01-11-2023 KWESI [facility] ----- MARY LEAL ([id number]) 1970 F Date Time Provider Department 01/11/23 WINSTON HANNAH During your visit today, we recorded the following information about you: Berta Ann RN 01/11/2023 10:08 AM Signed Procedure pended for 02/08/23. Pt aware of need for PACC. Pre-op instructions reviewed, will send to pt's [facility], per pt request. Post op appt scheduled. No other questions at this time. Berta HENSON, RN Specialty Animal Trapper Allergies As of Date: 01/11/2023 Noted Allergy Reaction RISPERIDONE 07/27/2021 5 - Intolerance Comments: Breast discharge Date Reviewed: 12/15/2022 Reviewed by: Mary Obrien MD - Fully Assessed Reason for Visit: Schedule Procedure [Other] Primary Visit Diagnosis:Gastroparesis [K31.84] Order(s):EGD - THERAPEUTIC, EUS, OR TUBE INTERVENTIONS [GI2] Order #: [id number] FUTURE Prescriptions as of 01/11/2023 - sucralfate [...] the AM and 4 mg PM - mulzvpuaoxr-jodafmgkg-nsz anter (TRELEGY ELLIPTA) 100-62.5-25 mcg Inhale 1 [...] Status:Closed by WINSTON HANNAH on 01/11/23 Normal [facility] Refillon 01-11-2023 Refill [id number] Darrian Leal 1970 Date Provider Department Center 01/11/2023 Karli-GIANA MORALES [facility] Gerardo Heal No family history on file Reason for Visit and Comments: Med Refill [[id number]] Normal [facility] Behavioral Health Telemedici neon 01-06-2023 Behavioral Health Telemedicine [id number] Mary Leal 1970 F Date Provider Department Center 01/06/2023 MartitaANNETTE SILVA [facility] No family history on file Level of Service:58110 [place] OFFICE/OUTPATIENT ESTABLISHED LOW [facility] 20-29 MIN Reason for Visit and Comments: Telehealth Audio/video Visit [871] [facility] Refillon 01-03-2023 Refill [id number] Darrian Leal jonathan 1970 F Date Provider Department [place] 01/03/2023 MartitaANNETTE SILVA [facility] No family history on file Reason for Visit and Comments: Med Refill [[id number]] [facility] Behavioral Health Telemedici neon 01-02-2023 Behavioral Health Telemedicine [id number] Darrian Lealen 1970 Date Provider Department [place] 01/02/2023 [facility] No family history on file Reason for Visit and Comments: Therapy [849] Telehealth Audio/video Visit [871] - [employer] [facility] XR ESOPHAGRAMon 12-26-2022 XR ESOPHAGRAM * [...] the procedure. IMPRESSION: SMALL VOLUME GASTROESOPHAGEAL REFLUX. Stamp Classifier: CAPRI Transcribe Date/Time: Dec 26 2022 3:20P Dictated by : MERISSA AGARWAL, This examination was interpreted and the report reviewed and electronically signed by: TARIQ MILLER MD on Dec 26 2022 3:25PM EST [id number] [facility] Behavioral Health Telemedici neon 12-12-2022 Behavioral Health Telemedicine [id number] Mary Leal 1970 F Date Provider Department Center 12/12/2022 [facility] Gerardo Heal No family history on file Reason for Visit and Comments: Therapy [849] Normal [facility] Behavioral Health Telemedici neon 12-09-2022 Behavioral Health Telemedicine [id number] Mary Leal 1970 Date Provider Department Center 12/09/2022 ANNETTE BRYAN [facility] Gerardo Heal No family history on file Level of Service:11434 [place] OFFICE/OUTPATIENT ESTABLISHED MOD MDM 30-39 MIN Reason for Visit and Comments: Telehealth Audio/video Visit [871] - [email or web address] [facility] Hussain 12-09-2022 CNPN Telephone ([facility]) ----- MARY LEAL ([id number]) 1970 F Date Time Provider Department 12/09/22 MARY OBRIEN [facility] During your visit today, we recorded the following information about you: Madyson Villanueva Pss 12/09/2022 3:23 PM Signed Patient called and left message regarding post operative 03/2022 total laparoscopic colectomy and concerns regarding symptoms and follow up testing return call to [phone] See Wong RN 12/12/2022 9:[address] Obrien sent my chart message to respond to this phone encounter and previous my chart message. Allergies As of Date: 12/09/2022 Noted Allergy Reaction RISPERIDONE 07/27/2021 5 - Intolerance Comments: Breast discharge Date Reviewed: 12/07/2022 Reviewed by: Marley Mitchell RN - Fully Assessed Reason for Visit: Patient Question [5847] Prescriptions as of 12/12/2022 - sucralfate (CARAFATE) [...] the AM and 4 mg PM - nlspreptrqi-uozmlkjsu-vnd anter (TRELEGY ELLIPTA) 100-62.5-25 mcg Inhale 1 [...] Encounter Status:Closed by SEE WONG [facility]12[facility]22 [facility] ([facility]) ----- MARY LEAL ([id number]) 1970 F Date Time Provider Department 12/08/22 ISRA MASTERS [facility] During your visit today, we recorded the following information about you: Nelsy Pepe RN 12/08/2022 4:56 PM Signed SPECIALTY CARE COORDINATION FOLLOW-UP NOTE Provider Action/ Patient asking about findings from sigmoidoscopy on 12/05/22? Wants to know if she still has colon left? If Dr. Masters is contacting colorectal surgeon? If ted is left wants to know if that is what could be still making her symptomatic? Patient identified by name and date of . YES Message from patient Summary: As noted Concerns: Procedure results Animal Trapper plan for next outreach: Will follow up Signature Nelsy Pepe RN December 08, 2022 Isra Masters, 12/09/2022 10:26 AM Signed She has 20-21cm of colon left and based on the smart pill it to 17hrs to get out of that area which would be very delayed so yes it could cause the symptoms. Jennie Howell, CT 12/09/2022 1:32 PM Signed Called patient and [...] the AM and 4 mg PM - xxtxrkismyi-spimozvqc-rck anter (TRELEGY ELLIPTA) 100-62.5-25 mcg Inhale 1 [...] Encounter Status:Closed by NELSY PEPE on 01/25/23 [facility] NURSING PROGon 12-08-2022 NURSING PROG HNO ID: [id number] Author: Lisa Contreras RN Service: Nursing Author Type: Registered Nurse Type: Nursing Progress Note Filed: 12/08/2022 11:28 AM Note Text: [facility] ENDOSCOPY POST PROCEDURE FOLLOW UP CALL [phone] (home) Date Phone Call Made: 12/08/2022 Attempt: [...] experience more pleasant? No Lisa Contreras RN [facility] POSTPROC EVALon 023 ANES POSTPROC EVAL HNO ID: [id number] Author: Andres Sheets DO Service: Anesthesiology Author Type: Anesthesiologist Type: Anesthesia Postprocedure Evaluation Filed: 12/07/2022 12:44 PM Note Text: POST ANESTHESIA EVALUATION NOTE : 1970 Procedure Summary Date: 12/07/22 Room / Location: [facility] Anesthesia Start: 1034 Anesthesia Stop: 1055 Procedures: [...] December 07, 2022 TIME: 12:44 PM CSN: [id number] [facility] ANES PRE-OPon 12-07-2022 ANES PRE-OP HNO ID: [id number] Author: Andres Sheets DO Service: Anesthesiology Author Type: Anesthesiologist Type: Anesthesia Preprocedure Evaluation Filed: 12/07/2022 9:42 AM Note Text: ANESTHESIOLOGY DAY OF SURGERY NOTE : 1970 Procedure Information Date/Time: 12/07/22 1030 Scheduled providers: Winston D Grubic, DO Procedures: EGD - THERAPEUTIC, EUS, OR TUBE INTERVENTIONS PH MONTIEL INSERT OFF MEDS Location: [facility] Estimated body mass index is 24.55 kg/m? [...] and consent discussed: yes. Patient / Responsible Republican agrees to proceed: yes Patient / Surrogate [...] the AM and 4 mg PM - kjmjsxudcly-gklgfdtzq-ahw anter (TRELEGY ELLIPTA) 100-62.5-25 mcg Inhale 1 [...] December 07, 2022 TIME: 9:40 AM CSN: [id number] [facility] HISTORY PHYSICALon 3 HISTORY PHYSICAL HNO ID: [id number] Author: Soraida Mathis PA-C Service: Gastroenterology Author Type: Physician Market Gardener Type: HANDP Filed: 12/07/2022 9:48 AM Note [...] PAIN, N/V/D Medication reconciliation list reviewed in [facility]. Past medical history, past surgical history, social history and family history reviewed and updated in [facility]. ALLERGIES Allergies: Risperidone Intolerance Comment:Breast discharge SEE [facility] FOR VITALS BP 109/74 Pulse 91 Temp [...] DATE: 12/07/2022 TIME: 9:41 AM Normal [facility] Upper GI endoscopyon 023 Upper GI endoscopy [facility] Gastrointestinal Endoscopy Patient Name: Mary Leal Procedure Date: 12/07/2022 10:20 AM Date of : 1970 Admit Type: Emergency Department Age: 52 Room: SP Procedure Room 3 Gender: Female Note Status: [...] by the physician, the nurse and the school standards coach in the pre-procedure area in the endoscopy [...] previously scheduled. Procedure Code(s): --- Professional --- 27748, Esophagogastroduodenoscop y, flexible, transoral; with dilation of gastric/duodenal stricture(s) (eg, balloon, bougie) Diagnosis Code(s): --- Professional --- K21.00, Gastro-esophageal reflux disease with esophagitis, without bleeding K31.84, Gastroparesis CPT copyright 2020 [employer]. All rights reserved. The codes documented in this report are preliminary and upon customer program manager review may be revised to meet current compliance requirements. Attending Participation: I personally performed the entire procedure. Scope In: 10:39:12 AM Scope Out: 10:46:13 AM MD Winston Diaz MD 12/07/2022 10 (more content not included)... Normal [facility] ANES POSTPROC EVALon 023 ANES POSTPROC EVAL HNO ID: [id number] Author: Annabel Burton MD Service: Anesthesiology Author Type: Physician Type: Anesthesia Postprocedure Evaluation Filed: 12/05/2022 2:01 PM Note Text: POST ANESTHESIA EVALUATION NOTE : 1970 Procedure Summary Date: 12/05/22 Room / Location: [facility] Anesthesia Start: 900 Anesthesia Stop: 917 Procedure: [...] December 05, 2022 TIME: 2:00 PM CSN: [id number] [facility] ANES PRE-OPon 12-05-2022 ANES PRE-OP HNO ID: [id number] Author: Annabel Burton MD Service: Anesthesiology Author Type: Physician Type: Anesthesia Preprocedure Evaluation Filed: 12/05/2022 8:28 AM Note Text: ANESTHESIOLOGY DAY OF SURGERY NOTE : 1970 Procedure Information Date/Time: 12/05/22 0900 Scheduled providers: Isra Masters DO Procedure: SIGMOIDOSCOPY Location: [facility] Estimated body mass index is 24.55 kg/m? [...] and consent discussed: yes. Patient / Responsible Republican agrees to proceed: yes Patient / Surrogate [...] the AM and 4 mg PM - wchnuiwhlde-gyvzdygnw-otm anter (TRELEGY ELLIPTA) 100-62.5-25 mcg Inhale 1 [...] December 05, 2022 TIME: 8:26 AM CSN: [id number] Normal [facility] Flexible Sigmoidoscopyon Flexible sigmoidoscopy [facility] Gastrointestinal Endoscopy Patient Name: Mary Leal Procedure Date: 12/05/2022 8:55 AM Date of : 1970 Admit Type: Outpatient Age: 52 Room: [place] [address] Gender: Female Note Status: Finalized Attending MD: [...] present medications. Procedure Code(s): --- Professional --- 15646, 52, Sigmoidoscopy, flexible; diagnostic, including collection of specimen(s) by brushing or washing, when performed (separate procedure) Diagnosis Code(s): --- Professional --- K59.00, Constipation, unspecified CPT copyright 2020 [employer]. All rights reserved. The codes documented in this report are preliminary and upon customer program manager review may be revised to meet current compliance requirements. Attending Participation: I personally performed the entire procedure. Scope In: 9:07:04 AM Scope Out: 9:09:45 AM DO Isra Chen DO 12/05/2022 9:13:05 AM This report has been signed electronically by Isra Masters DO Number of Addenda: 0 Note Initiated On: 12/05/2022 8:55 AM Estimated Blood Loss: Estimated blood loss: none. Normal [facility] HISTORY PHYSICALon 3 HISTORY PHYSICAL HNO ID: [id number] Author: Lashanda Dorado PA-C Service: Gastroenterology Author Type: Physician Market Gardener Type: HANDP Filed: 12/05/2022 8:43 AM Note [...] PAIN, N/V/D Medication reconciliation list reviewed in [facility]. Past medical history, past surgical history, social history and family history reviewed and updated in [facility]. ALLERGIES Allergies: Risperidone Intolerance Comment:Breast discharge SEE [facility] FOR VITALS There were no vitals taken [...] DATE: 12/05/2022 TIME: 8:42 AM Normal [facility] NURSING PROGon 12-05-2022 NURSING PROG HNO ID: [id number] Author: Lisa Contreras RN Service: ? Author Type: Registered Nurse Type: Nursing Progress Note Filed: 12/05/2022 1:07 PM Note Text: [facility] ENDOSCOPY PRE PROCEDURE CALL [facility]. I'm calling from [facility] endoscopy to provide you with the information for your surgery/procedure tomorrow. Spoke to: Patient CONFIRM Procedure Planned with patient:Esophagogastroduo denoscopy(EGD) with or without biopies based on clinical findings, removal of polyps or lesions Are you familiar with where [facility] is located?yes Address [address] Patient instructed to enter through the main hospital entrance off [address] at [address] through the revolving doors and check in at the main desk with your pharmacy delivery driver's license and insurance card. yes When anesthesia or sedation is being given: Patient instructed you must have an adult pharmacy delivery driver because you will not be able to work or drive for the rest of the day after your test.yes Can you please confirm the name and relationship of your pharmacy delivery driver. tbd What is the best number for your pharmacy delivery driver to be reached at tomorrow for updates? tbd Your pharmacy delivery driver is allowed to wait here with [...] Do not wear makeup, lotion, or finger syrian. yes Patient instructed: Please bring a list [...] given Any barriers to Patient learning (confusion? Carpenter Ship needed?): Patient/Patient Cad Programmer responded appropriately on phone. If patient needs to reschedule please call: [phone] [facility] phone number: [phone] Type of instruction given: Verbal by telephone contact. [facility] Hussain 12-02-2022 MARIAN Telephone (NIQ) ----- MARY LAEL ([id number]) 1970 F Date Time Provider Department 12/02/22 YONI TUTTLE During your visit today, we recorded the following information about you: Barber Marie 12/02/2022 8:42 AM Signed SLEEP PHONE Name of caller: Mary Leal Relationship to patient : Self In-state or [id number] patient: In-State Was permission obtained from patient? Yes Patient identified by Name and Date of . ( Mary Leal, 1970). Yes Reason for Call : Patient said her and Patricia was chatting through my chart and Patricia called her about 5:15 yesterday. Number to return call [phone] Okay to leave a message ? Yes Last office visit 10/14/[address] Tuttle virtual Next office visit 01/13/[address] Tuttle virtual Patricia Benton, RN 12/14/2022 5:19 PM Signed Several attempts to reach pt [facility] sent. Allergies As of [...] the AM and 4 mg PM - kpzjabguell-yjzrklchb-aid anter (TRELEGY ELLIPTA) 100-62.5-25 mcg Inhale 1 [...] Encounter Status:Closed by PATRICIA BENTON on 12/20/22 [facility] NURSING PROGon 12-02-2022 NURSING PROG HNO ID: [id number] Author: Isra Harman RN Service: ? Author Type: Registered Nurse Type: Nursing Progress Note Filed: 12/02/2022 10:54 AM Note Text: [facility] ENDOSCOPY PRE PROCEDURE CALL Akiko. I'm calling from [facility] endoscopy to provide you with the information for your surgery/procedure tomorrow. Spoke to: Patient CONFIRM Procedure Planned with patient: Are you familiar with where [facility] is located?yes Address [address] Patient instructed to enter through the main hospital entrance off [address] at [address] through the revolving doors and check in at the main desk with your pharmacy delivery driver's license and insurance card. yes When anesthesia or sedation is being given: Patient instructed you must have an adult pharmacy delivery driver because you will not be able to work or drive for the rest of the day after your test.yes Can you please confirm the name and relationship of your pharmacy delivery driver. Rich What is the best number for your pharmacy delivery driver to be reached at tomorrow for updates? [phone] Your pharmacy delivery driver is allowed to wait here with [...] must be done on Monday.) Did you fruit picker your bowel prep pt calling office [...] Do not wear makeup, lotion, or finger syrian. yes Patient instructed: Please bring a list [...] given Any barriers to Patient learning (confusion? Carpenter Ship needed?): Patient/Patient Cad Programmer responded appropriately on phone. If patient needs to reschedule please call: [phone] [facility] phone number: [phone] Type of instruction given: Verbal by telephone contact. Normal [facility] AMYLASEon 10-20-2022 Amylase [Catalytic activity/Vol] 33 U/L Normal 25-115 [facility] Comment on above: Performed By: #### L ACT #### [facility] [address] [address] [address] Mirian Velasco CBC AUTO DIFFon 10-20-2022 BASO # 0.0 103/ul Normal 0.0-0.1 [facility] Comment on above: Performed By: #### P T #### [facility] [address] [address] [address] Mirian Velasco Basophils/100 WBC (Bld) 0.2 % Normal 0.2-2.0 [facility] Comment on above: Performed By: #### P T #### [facility] [address] [place] [address] Dr. Mirian Velasco EO # 0.1 103/ul Normal 0.0-0.7 [facility] Comment on above: Performed By: #### P T #### [facility] [address] [place] [address] Dr. Mirian Velasco Eosinophils/100 WBC (Bld) 0.6 % Critically low 0.9-7.0 [facility] Comment on above: Performed By: #### P T #### [facility] [address] [place] [address] Dr. Mirian Velasco Erythrocyte distribution width (RBC) [Ratio] 13.6 % Normal 11.0-15.0 [facility] Comment on above: Performed By: #### P T #### [facility] [address] [place] [address] Dr. Mirian Velasco Hematocrit (Bld) [Volume fraction] 41.0 % Normal 36.0-48.0 [facility] Comment on above: Performed By: #### P T #### [facility] [address] [place] [address] Dr. Mirian Velasco Hemoglobin (Bld) [Mass/Vol] 13.5 g/dL Normal 12.0-16.0 [facility] Comment on above: Performed By: #### P T #### [facility] [address] [place] [address] Dr. Mirian Velasco IG # 0.06 10e3/ul Critically high 0.00-0.03 [facility] Comment on above: Performed By: #### P T #### [facility] [address] [place] [address] Dr. Mirian Velasco IG % 0.4 % Normal 0.0-0.5 [facility] Comment on above: Performed By: #### P T #### [facility] [address] [place] [address] Dr. Mirian Velasco LYMPH # 2.5 103/ul Normal 1.2-3.8 [facility] Comment on above: Performed By: #### P T #### [facility] [address] [place] [address] Dr. Mirian Velasco Lymphocytes/100 WBC (Bld) 17.5 % Critically low 20.5-60.0 [facility] Comment on above: Performed By: #### P T #### [facility] [address] [place] [address] Dr. Mirian Velasco MANUAL DIFF REQ NO Normal [facility] Comment on above: Performed By: #### P T #### [facility] [address] [place] [address] Dr. Mirian Velasco MCH (RBC) [Entitic mass] 28.1 pg Normal 26.7-34.0 [facility] Comment on above: Performed By: #### P T #### [facility] [address] [place] [address] Dr. Mirian Velasco MCHC (RBC) [Mass/Vol] 32.9 g/dL Normal 29.9-35.2 [facility] Comment on above: Performed By: #### P T #### [facility] [address] [place] [address] Dr. Mirian Velasco MCV (RBC) [Entitic vol] 85.2 fL Normal 81.0-99.0 [facility] Comment on above: Performed By: #### P T #### [facility] [address] [place] [address] Dr. Mirian Velasco MONO # 0.7 103/ul Normal 0.3-0.8 [facility] Comment on above: Performed By: #### P T #### [facility] [address] [place] [address] Dr. Mirian Velasco Monocytes/100 WBC (Bld) 4.5 % Normal 1.7-12.0 [facility] Comment on above: Performed By: #### P T #### [facility] [address] [place] [address] Dr. Mirian Velasco NEUT # 11.0 103/ul Critically high 1.4-6.5 [facility] Comment on above: Performed By: #### P T #### [facility] [address] [address] [address] Mirian Velasco Neutrophils/100 WBC (Bld) 76.8 % Critically high 43.0-75.0 [facility] Comment on above: Performed By: #### P T #### [facility] [address] [address] [address] Mirian Velasco Platelet mean volume (Bld) [Entitic vol] 8.7 fL Critically low 9.5-13.5 [facility] Comment on above: Performed By: #### P T #### [facility] [address] [place] [address] Dr. Mirian Velasco PLT 390 103/ul Normal 150-450 [facility] Comment on above: Performed By: #### P T #### [facility] [address] [address] [address] Mirian Velasco RBC 4.81 106/ul Normal 4.20-5.40 [facility] Comment on above: Performed By: #### P T #### [facility] [address] [address] [address] Mirian Velasco WBC 14.3 103/ul Critically high 4.0-11.0 [facility] Comment on above: Performed By: #### P T #### [facility] [address] [place] [address] ABD/PELV W CONon [...] SALMA AMEZQUITA Date: 2022-10-20 12:35 Normal [facility] CULTURE BLOODon 10-20-2022 Microscopic examination of blood, culture Culture Observations: NO GROWTH AT 5 DAYS. Normal [facility] Comment on above: Performed By: #### B LDCX2 ####[facility] [id number] [address]Dr. Mirian Velasco Microscopic examination of blood, culture Culture Observations: NO GROWTH AT 5 DAYS. Normal [facility] Comment on above: Performed By: #### B LDCX1 #### [facility] [address] [address] [address] 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 NO POTENTIAL PATHOGENS SEEN. Normal [facility] Comment on above: Performed By: #### U RCX #### [facility] [address] [address] [address] Mirian Velasco ER URINE PROFILEon 2 Bilirubin Ql (U) Negative Normal NEGATIVE [facility] Comment on above: Performed By: #### P T #### [facility] [address] [address] [address] Mirian Velasco Clarity (U) CLEAR Normal CLEAR [facility] Comment on above: Performed By: #### P T #### [facility] [address] [address] [address] Mirian Velasco Color (U) LT. YELLOW Normal YELLOW [facility] Comment on above: Performed By: #### P T #### [facility] [address] [place] [address] Dr. Mirian Velasco ERUAHD A micrscopic examina tion will be performed if indicated. Normal [facility] Comment on above: Performed By: #### P T #### [facility] [address] [address] [address] Mirian Velasco Glucose Ql (U) Negative Normal NEGATIVE [facility] Comment on above: Performed By: #### P T #### [facility] [address] [place] [address] Dr. Mirian Velasco Hemoglobin Ql (U) Negative Normal NEGATIVE [facility] Comment on above: Performed By: #### P T #### [facility] [address] [place] [address] Dr. Mirian Velasco Ketones Ql (U) Negative Normal NEGATIVE [facility] Comment on above: Performed By: #### P T #### [facility] [address] [place] [address] Dr. Mirian Velasco LEUKOCYTES SMALL Abnormal NEGATIVE [facility] Comment on above: Performed By: #### P T #### [facility] [address] [place] [address] Dr. Mirian Velasco Nitrite Ql (U) Negative Normal NEGATIVE [facility] Comment on above: Performed By: #### P T #### [facility] [address] [place] [address] Dr. Mirian Velasco pH (U) 7.0 [pH] Normal 5-9 [facility] Comment on above: Performed By: #### P T #### [facility] [address] [place] [address] Dr. Mirian Velasco SPEC GRAVITY 1.015 Normal 1.005-<=1. 025 [facility] Comment on above: Performed By: #### P T #### [facility] [address] [place] [address] Dr. Mirian Velasco UA PROTEIN Negative Normal NEGATIVE/ TRACE [facility] Comment on above: Performed By: #### P T #### [facility] [address] [place] [address] Dr. Mirian Velasco UR MICRO IND INDICATED Normal [facility] Comment on above: Performed By: #### P T #### [facility] [address] [place] [address] Dr. Mirian Velasco Urobilinogen Qn (U) 0.2 {Lyubov'U}/dL Normal 0.2 - 1. 0 [facility] Comment on above: Performed By: #### P T #### [facility] [address] [place] [address] Dr. Mirian Velasco LACTATE/LACTIC ACIDon 2021 Lactate [Moles/Vol] 1.3 mmol/L Normal 0.4-1.9 [facility] Comment on above: Performed By: #### L ACT #### [facility] [address] [place] [address] Dr. Mirian Velasco LIPASEon 10-20-2022 Lipase [Catalytic activity/Vol] 49.0 U/L Critically low 73.0-393.0 [facility] Comment on above: Performed By: #### P T #### [facility] [address] [place] [address] Dr. Mirian Velasco PROF 14(COMP METB)on 022 Albumin [Mass/Vol] 3.2 g/dL Critically low 3.4-5.0 [facility] Comment on above: Performed By: #### P T #### [facility] [address] [place] [address] Dr. Mirian Velasco Albumin/Globulin [Mass ratio] 0.9 {ratio} Normal [facility] Comment on above: Performed By: #### P T #### [facility] [address] [place] [address] Dr. Mirian Velasco ALP [Catalytic activity/Vol] 129 U/L Critically high 46-116 [facility] Comment on above: Performed By: #### P T #### [facility] [address] [address] [address] Mirian Velasco ALT [Catalytic activity/Vol] 25 U/L Normal 14-59 [facility] Comment on above: Performed By: #### P T #### [facility] [address] [address] [address] Mirian Velasco Anion gap [Moles/Vol] 10.7 mmol/L Normal [facility] Comment on above: Performed By: #### P T #### [facility] [address] [address] [address] Mirian Velasco AST [Catalytic activity/Vol] 20 U/L Normal 15-37 [facility] Comment on above: Performed By: #### P T #### [facility] [address] [place] [address] Dr. Mirian Velasco Bilirubin [Mass/Vol] 0.5 mg/dL Normal 0.2-1.0 [facility] Comment on above: Performed By: #### P T #### [facility] [address] [place] [address] Dr. Mirian Velasco Calcium [Mass/Vol] 9.2 mg/dL Normal 8.5-10.1 [facility] Comment on above: Performed By: #### P T #### [facility] [address] [place] [address] Dr. Mirian Velasco Chloride [Moles/Vol] 102 mmol/L Normal 98-107 [facility] Comment on above: Performed By: #### P T #### [facility] [address] [place] [address] Dr. Mirian Velasco CO2 [Moles/Vol] 30.0 mmol/L Normal 21.0-32.0 [facility] Comment on above: Performed By: #### P T #### [facility] [address] [place] [address] Dr. Mirian Velasco Creatinine [Mass/Vol] 0.68 mg/dL Normal 0.55-1.02 [facility] Comment on above: Performed By: #### P T #### [facility] [address] [address] [address] Mirian Velasco EGFR-AF CITIZEN OF [place] >60 Normal >=60 [facility] Comment on above: Performed By: #### P T #### [facility] [address] [place] [address] Dr. Mirian Velasco EGFR-NON AF CITIZEN OF [place] >60 Normal >=60 [facility] Comment on above: Performed By: #### P T #### [facility] [address] [address] [address] Mirian Velasco Globulin (S) [Mass/Vol] 3.7 g/dL Normal [facility] Comment on above: Performed By: #### P T #### [facility] [address] [place] [address] Dr. Mirian Velasco Glucose [Mass/Vol] 109 mg/dL Critically high 74-106 [facility] Comment on above: Performed By: #### P T #### [facility] [address] [place] [address] Dr. Mirian Velasco Potassium [Moles/Vol] 3.7 mmol/L Normal 3.5-5.1 [facility] Comment on above: Performed By: #### P T #### [facility] [address] [place] [address] Dr. Mirian Velasco Protein [Mass/Vol] 6.9 g/dL Normal 6.4-8.2 [facility] Comment on above: Performed By: #### P T #### [facility] [address] [place] [address] Dr. Mirian Velasco Sodium [Moles/Vol] 139 mmol/L Normal 136-145 [facility] Comment on above: Performed By: #### P T #### [facility] [address] [place] [address] Dr. Mirian Velasco Urea nitrogen [Mass/Vol] 13.0 mg/dL Normal 7.0-18.0 [facility] Comment on above: Performed By: #### P T #### [facility] [address] [place] [address] Dr. Mirian Velasco Urea nitrogen/Creatinine [Mass ratio] 19.1 mg/mg Normal [facility] Comment on above: Performed By: #### P T #### [facility] [address] [place] [address] Dr. Mirian Velasco URINE MICROSCOPIC ONLYon BACTERIA TRACE Abnormal NONE SEEN [facility] Comment on above: Performed By: #### P T #### [facility] [address] [place] [address] Dr. Mirian Velasco Bacteria identified Cx Nom (U) INDICATED Normal [facility] Comment on above: Performed By: #### P T #### [facility] [address] [place] [address] Dr. Mirian Velasco CAST NONE SEEN Normal NONE SEEN [facility] Comment on above: Performed By: #### P T #### [facility] [address] [place] [address] Dr. Mirian Velasco Crystals LM Nom (Urine sed) NONE SEEN Normal NONE SEEN [facility] Comment on above: Performed By: #### P T #### [facility] [address] [place] [address] Dr. Mirian Velasco Epithelial cells LM Ql (Urine sed) MODERATE Abnormal NONE SEEN /RARE [facility] Comment on above: Performed By: #### P T #### [facility] [address] [place] [place] [address] Dr. Mirian Velasco MUCOUS NONE SEEN Normal NONE SEEN [facility] Comment on above: Performed By: #### P T #### [facility] [address] [place] [address] Dr. Mirian Velasco RBC NONE SEEN Abnormal 0-2 [facility] Comment on above: Performed By: #### P T #### [facility] [address] [place] [address] Dr. Mirian Velasco WBC 2-5 Abnormal NONE SEEN [facility] Comment on above: Performed By: #### P T #### [facility] [address] [place] [address] Dr. Mirian Velasco YEAST PRESENT Abnormal NONE SEEN [facility] Comment on above: Result Comment: RARE BUDDING YEAST Performed By: #### P T #### [facility] [address] [place], [place] [address] Dr. Mirian Velasco POINT OF CARE GLUCOSEon 10-06 Glucose [Mass/Vol] 131 mg/dL Critically high 74-106 [facility] Comment on above: Performed By: #### P OCGLUC ####[facility] [address] [place], [place] [address]RaDr. Mirian Velasco Glucose [Mass/Vol] 113 mg/dL Critically high 74-106 [facility] Comment on above: Performed By: #### P OCGLUC ####[facility] [address] [place], [place] [address]FkReno Velasco XR FOOT RT 2Von 10-17-2022 XR [...] NICKI DACOSTA Date: 2022-10-17 18:04 Normal [facility]on SARS-CoV-2 (COVID-19) RNA JOSÉ MIGUEL+probe Ql (Unsp spec) Not detected Normal NOT DETECTED [facility] Comment on above: Result Comment: This test is not yet approved or cleared by the [place] FDA. When there are no FDA-approved or cleared tests available, and other criteria are met, FDA can make tests available under an emergency access mechanism called an Emergency Use Authorization (EUA). The EUA for this test is supported by the [place] of Health and Human Service's (HHS's) declaration [...] consistent with SARS-CoV-2. Performed By: #### C VDTB #### [facility] [address] [place] [address] Dr. Mirian Velasco Diagnostic Mammogram, Unilat eral [...] VERY IMPORTANT TO YOUR HEALTH. THE CURRENT CITIZEN OF [place] COLLEGE OF RADIOLOGY AND NATIONAL COMPREHENSIVE CANCER NETWORK GUIDELINES RECOMMENDS ANNUAL MAMMOGRAPHY BEGINNING AT AGE 42 THIS FACILITY USES A REMINDER SYSTEM TO ENSURE ALL PATIENTS RECEIVE REMINDER NOTIFICATIONS AT THE APPROPRIATE TIME BASED ON THE RECOMMENDATIONS OF THIS EXAM. Board Certified Radiologist. Accredited by the ACR and FDA. Report reported and signed by Dawna Lizarraga on 09/28/2022 1307 Normal [facility] [employer] CBC AUTO DIFFon 09-26-2022 BASO # 0.1 103/ul Normal 0.0-0.1 [facility] Comment on above: Performed By: #### L ACT #### [facility] [address] [place] [address] Dr. Mirian Velasco Basophils/100 WBC (Bld) 0.8 % Normal 0.2-2.0 [facility] Comment on above: Performed By: #### L ACT #### [facility] [address] [place] [address] Dr. Mirian Velasco EO # 0.1 103/ul Normal 0.0-0.7 [facility] Comment on above: Performed By: #### L ACT #### [facility] [address] [place] [address] Dr. Mirian Velasco Eosinophils/100 WBC (Bld) 1.5 % Normal 0.9-7.0 [facility] Comment on above: Performed By: #### L ACT #### [facility] [address] [place] [address] Dr. Mirian Velasco Erythrocyte distribution width (RBC) [Ratio] 13.4 % Normal 11.0-15.0 [facility] Comment on above: Performed By: #### L ACT #### [facility] [address] [place] [address] Dr. Mirian Velasco Hematocrit (Bld) [Volume fraction] 41.3 % Normal 36.0-48.0 [facility] Comment on above: Performed By: #### L ACT #### [facility] [address] [place] [address] Dr. Mirian Velasco Hemoglobin (Bld) [Mass/Vol] 13.4 g/dL Normal 12.0-16.0 [facility] Comment on above: Performed By: #### L ACT #### [facility] [address] [place] [address] Dr. Mirian Velasco IG # 0.04 10e3/ul Critically high 0.00-0.03 [facility] Comment on above: Performed By: #### L ACT #### [facility] [address] [place] [address] Dr. Mirian Velasco IG % 0.5 % Normal 0.0-0.5 [facility] Comment on above: Performed By: #### L ACT #### [facility] [address] [place] [address] Dr. Mirian Velasco LYMPH # 2.5 103/ul Normal 1.2-3.8 [facility] Comment on above: Performed By: #### L ACT #### [facility] [address] [place] [address] Dr. Mirian Velasco Lymphocytes/100 WBC (Bld) 27.7 % Normal 20.5-60.0 [facility] Comment on above: Performed By: #### L ACT #### [facility] [address] [place] [address] Dr. Mirian Velasco MANUAL DIFF REQ NO Normal [facility] Comment on above: Performed By: #### L ACT #### [facility] [address] [place] [address] [address] Mirian Velasco MCH (RBC) [Entitic mass] 27.6 pg Normal 26.7-34.0 [facility] Comment on above: Performed By: #### L ACT #### [facility] [address] [place] [address] Dr. Mirian Velasco MCHC (RBC) [Mass/Vol] 32.4 g/dL Normal 29.9-35.2 [facility] Comment on above: Performed By: #### L ACT #### [facility] [address] [place] [address] Dr. Mirian Velasco MCV (RBC) [Entitic vol] 85.0 fL Normal 81.0-99.0 [facility] Comment on above: Performed By: #### L ACT #### [facility] [address] [place] [address] Dr. Mirian Velasco MONO # 0.6 103/ul Normal 0.3-0.8 [facility] Comment on above: Performed By: #### L ACT #### [facility] [address] [place] [address] Dr. Mirian Velasco Monocytes/100 WBC (Bld) 6.9 % Normal 1.7-12.0 [facility] Comment on above: Performed By: #### L ACT #### [facility] [address] [place] [address] Dr. Mirian Velasco NEUT # 5.6 103/ul Normal 1.4-6.5 [facility] Comment on above: Performed By: #### L ACT #### [facility] [address] [place] [address] Dr. Mirian Velasco Neutrophils/100 WBC (Bld) 62.6 % Normal 43.0-75.0 [facility] Comment on above: Performed By: #### L ACT #### [facility] [address] [place] [address] Dr. Mirian Velasco Platelet mean volume (Bld) [Entitic vol] 8.6 fL Critically low 9.5-13.5 [facility] Comment on above: Performed By: #### L ACT #### [facility] [address] [place] [address] Dr. Mirian Velasco PLT 372 103/ul Normal 150-450 [facility] Comment on above: Performed By: #### L ACT #### [facility] [address] [place] [address] [address] Mirian Velasco RBC 4.86 106/ul Normal 4.20-5.40 [facility] Comment on above: Performed By: #### L ACT #### [facility] [address] [place] [address] [address] Mirian Velasco WBC 8.9 103/ul Normal 4.0-11.0 [facility] Comment on above: Performed By: #### L ACT #### [facility] [address] [place] [address] Dr. Mirian Velasco PROF CHEM 8 (BAS METB)on Anion gap [Moles/Vol] 8.0 mmol/L Normal [facility] Comment on above: Performed By: #### P T #### [facility] [address] [place] [address] Dr. Mirian Velasco Calcium [Mass/Vol] 9.0 mg/dL Normal 8.5-10.1 [facility] Comment on above: Performed By: #### P T #### [facility] [address] [place] [address] Dr. Mirian Velasco Chloride [Moles/Vol] 106 mmol/L Normal 98-107 [facility] Comment on above: Performed By: #### P T #### [facility] [address] [place] [address] Dr. Mirian Velasco CO2 [Moles/Vol] 30.3 mmol/L Normal 21.0-32.0 [facility] Comment on above: Performed By: #### P T #### [facility] [address] [place] [address] Dr. Mirian Velasco Creatinine [Mass/Vol] 0.71 mg/dL Normal 0.55-1.02 [facility] Comment on above: Performed By: #### P T #### [facility] [address] [place] [address] [address] Mirian Velasco EGFR-AF CITIZEN OF [place] >60 Normal >=60 [facility] Comment on above: Performed By: #### P T #### [facility] [address] [place] [address] [address] Mirian Velasco EGFR-NON AF CITIZEN OF [place] >60 Normal >=60 [facility] Comment on above: Performed By: #### P T #### [facility] [address] [place] [address] [address] Mirian Velasco Glucose [Mass/Vol] 81 mg/dL Normal 74-106 [facility] Comment on above: Performed By: #### P T #### [facility] [address] [place] [address] [address] Mirian Velasco Potassium [Moles/Vol] 4.3 mmol/L Normal 3.5-5.1 [facility] Comment on above: Performed By: #### P T #### [facility] [address] [place] [address] [address] Mirian Velasco Sodium [Moles/Vol] 140 mmol/L Normal 136-145 [facility] Comment on above: Performed By: #### P T #### [facility] [address] [place] [address] [address] Mirian Velasco Urea nitrogen [Mass/Vol] 16.0 mg/dL Normal 7.0-18.0 [facility] Comment on above: Performed By: #### P T #### [facility] [address] [place] [address] [address] Mirian Velasco Urea nitrogen/Creatinine [Mass ratio] 22.5 mg/mg Normal [facility] Comment on above: Performed By: #### P T #### [facility] [address] [place] [address] Dr. Mirian Velasco C reactive protein [Mass/vol ume] in Serum or PlasmaOrdered By: Annette Harris on 09-22-2022 CRP [Mass/Vol] 0.6 mg/dL 0.0-1.0 [facility] C-Reactive Proteinon 022 C-Reactive Protein 0.6 mg/dL Normal 0.0-1.0 mg/dL [facility] [employer] Other Erythrocyte Sedimentation Ra lian 09-22-2022 ESR (Bld) [Velocity] 4 mm/h Normal 0-29 [facility] [address] [employer] Other Erythrocyte sedimentation ra te by Photometric methodOrdered By: Annette Harris on 09-22-2022 ESR Photometric method (Bld) [Velocity] 4 mm/hr 0-29 [facility] Serum nuclear antibody titer Ordered By: Annette Harris on 09-22-2022 Nuclear Ab (S) [Titer] Negative . [facility] Comment on above: Negative <1:80 Borde rline 1:80 Positive >1:80ICAP nomenclature: AC-0For more information about Hep-2 cell patterns useBANNERpatterns.org, the official website for theInternational Consensus on Antinuclear Antibody (CHUYITA)Patterns (ICAP).Performed at: [facility] [address] [id number] Director: Erick Neville PhD, Phone: [phone] Serum or plasma rheumatoid f actor measurement (units/volume)Ordered By: Annette Harris on 09-22-2022 Rheumatoid factor Qn [IU]/mL <14.0 [facility] Comment on above: Performed at: [facility] [address] [id number] Director: Erick Neville PhD, Phone: [phone] Serum or plasma thyroxine (T 4) measurement (mass/volume)Ordered By: Annette Harris on 09-22-2022 T4 [Mass/Vol] 9.82 ug/dL 5.39-11.82 [facility] Serum or plasma uric acid me asurement (mass/volume)Ordered By: Annette Harris on 09-22-2022 Urate [Mass/Vol] 4.2 mg/dL 2.6-7.2 [facility] TSH DL <= 0.005 mIU/L QnOrde red By: Annette Harris on 09-22-2022 TSH Qn 1.98 m[IU]/L 0.45-5.33 [facility] Thyroid Stimulating Hormoneo n 09-22-2022 TSH Qn 1.58555534717 m[IU]/L Normal 0.45-5 .33 u[iU]/mL [employer] Other Thyroxine (T4) Totalon 09-22 Thyroxine (T4) Total 9.82 ug/dL Normal 5.39-11 .82 ug/dL [employer] Other Uric Acidon 09-22-2022 Urate [Mass/Vol] 4.4133655 mg/dL Normal 2.6-7.2 mg/dL [employer] Other XR knee BI 2Von 09-22-2022 XR knee BI 2V [facility] [employer] Other XR knee BI 2V [facility] [employer] Other XR knee BI 2V [address] [place] [address] [employer] Other XR knee BI 2V [address] [employer] Other XR knee BI 2V [facility] Other XR knee BI 2V Signed [employer] Other XR knee BI 2V Patient: Darrian Leal MR#: [id number] [place] [employer] Other XR knee BI 2V 863 [employer] Other XR knee BI 2V : 1970 Acct:[id number] [employer] Other XR knee BI 2V Age/Sex: 52 / F ADM Date: 09/22/22 [employer] Other XR knee BI 2V Loc: [facility] Room: Type : REG CLI [employer] Other XR knee BI 2V Attending Dr: Annette Harris MD [employer] Other XR knee BI 2V Copies to: Annette Harris MD [employer] Other XR knee BI 2V Ordering Provider: Carey Harris MD [employer] Other XR knee BI 2V Date of Service: 09/22/22 [employer] Other XR knee BI 2V XR/XR knee BI 2V: Knee pain [employer] Other XR knee BI 2V XR knee BI 2V 2021 9:23 AM [employer] Other XR knee BI 2V SIGNS AND SYMPTOMS: Bilateral knee pain right greater than left [employer] Other XR knee BI 2V PROTOCOL: Frontal an d lateral radiographs of the bilateral knees [employer] Other XR knee BI 2V COMPARISON: None [employer] Other XR knee BI 2V FINDINGS: [employer] Other XR knee BI 2V There is evidence of prior ACL repair in the left knee with mild narrowing of the weightbearing [employer] Other XR knee BI 2V joint spaces on the left. The joint spaces are otherwise preserved. There is no fracture or [employer] Other XR knee BI 2V dislocation. No join t effusion or soft tissue swelling. [employer] Other XR knee BI 2V X R/XR knee BI 2V [employer] Other XR knee BI 2V IMPRESSION: [facility] [employer] Other XR knee BI 2V Status post ACL repa ir on the left. [employer] Other XR knee BI 2V Mild degenerative ch anges are noted in the weightbearing joint spaces of the left. [employer] Other XR knee BI 2V No acute bony injury. [employer] Other XR knee BI 2V Impression dictated by: Joshua Garcia M.D.09/22/2022 2:17 PM [employer] Other XR knee BI 2V Dictation Location: [place] [address] [employer] Other XR knee BI 2V Transcribed By: MARIO 09/22/22 1417 [employer] Other XR knee BI 2V Dictated By: Joshua Garcia II, MD 09/22/22 [facility] [employer] Other XR knee BI 2V Signed By: [employer] Other XR knee BI 2V 09/22/22 1417 [employer] Other XR shoulder BI min 2Von 09-06 XR shoulder BI min 2V XR/XR shoulder BI min 2V: Shoulder pain [employer] Other XR shoulder BI min 2V XR shoulder BI min 2V 09/22/2022 9:23 AM [employer] Other XR shoulder BI min 2V SIGNS AND SYMPTOMS : Bilateral shoulder pain with limited range of motion [employer] Other XR shoulder BI min 2V PROTOCOL: Frontal, Grashey, scapular Y, and axillary views of the bilateral shoulders [employer] Other XR shoulder BI min 2V COMPARISON: 02/26/2018 [employer] Other XR shoulder BI min 2V There has been bon y resorption of the lateral margin of the clavicle on the right suggesting [employer] Other XR shoulder BI min 2V osteomyelitis is w hich may be degenerative or traumatic. Mild hypertrophy of the AC joint is noted. [employer] Other XR shoulder BI min 2V The glenohumeral j oint is preserved on the right. There is subcortical sclerosis greater tuberosity [employer] Other XR shoulder BI min 2V of the right sugge sting underlying rotator cuff abnormalities. This is new when compared to the [employer] Other XR shoulder BI min 2V prior exam. The visualized right hemithorax is grossly intact. [employer] Other XR shoulder BI min 2V There is mild hype rtrophy of the left acromioclavicular joint. There is mild subcortical sclerosis [employer] Other XR shoulder BI min 2V of the greater tub erosity in the left suggesting underlying rotator cuff abnormalities. The [employer] Other XR shoulder BI min 2V glenohumeral joint is preserved. There is no fracture or dislocation. Visualized left hemithorax is [employer] Other XR shoulder BI min 2V grossly intact. [employer] Other XR shoulder BI min 2V There is partial visualization of intervertebral disc arthroplasty is noted within the lower [employer] Other XR shoulder BI min 2V cervical spine. 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 [employer] Other XR shoulder BI min 2V Rudimentary ribs a re noted at C7, right greater than left [employer] Other XR shoulder BI min 2V Impression dictate d by: Joshua Garcia M.D.09/22/2022 2:20 PM [employer] Other XR shoulder BI min 2V Transcribed By: KT Thorpe 09/22/22 1420 [employer] Other XR shoulder BI min 2V Dictated By: Joshua Garcia II, MD 09/22/22 1411 [employer] Other XR shoulder BI min 2V 09/22/22 1425 [employer] Other SCREENING MAMMOGRAM W/RUSSEL, BILATERAL*on 09-14-2022 SCREENING [...] IS VERY IMPORTANT TO YOUR HEALTH. CURRENT CITIZEN OF [place] COLLEGE OF RADIOLOGY AND NATIONAL COMPREHENSIVE CANCER NETWORK GUIDELINES RECOMMENDS ANNUAL MAMMOGRAPHY BEGINNING AT AGE 42. THIS FACILITY USUALLY USES A REMINDER SYSTEM TO ENSURE ALL POSITIONS RECEIVED REMINDER NOTIFICATIONS AT THE TIME BASED ON THE RECOMMENDATIONS OF THIS EXAM. Report reported and signed by Zaida Diaz on 09/16/2022 1334 Normal [facility] [employer] Tobacco Screening.on 022 Adult depression screening assessment No [facility] y 250 DO Work Phone: Tobacco use status [facility] b) No [facility] y 250 DO Work Phone: COVID Quick Testingon 2021 Result Negative [employer] Other AMYLASEon 04-17-2022 Amylase [Catalytic activity/Vol] 38 U/L Normal 25-115 [facility] Comment on above: Performed By: #### P T #### [facility] [address] [place] [address] Dr. Mirian Velasco CBC AUTO DIFFon 04-17-2022 BASO # 0.1 103/ul Normal 0.0-0.1 [facility] Comment on above: Performed By: #### L ACT #### [facility] [address] [place] [address] Dr. Mirian Velasco Basophils/100 WBC (Bld) 1.0 % Normal 0.2-2.0 [facility] Comment on above: Performed By: #### L ACT #### [facility] [address] [place] [address] Dr. Mirian Velasco EO # 0.2 103/ul Normal 0.0-0.7 [facility] Comment on above: Performed By: #### L ACT #### [facility] [address] [place] [address] Dr. Mirian Velasco Eosinophils/100 WBC (Bld) 3.3 % Normal 0.9-7.0 [facility] Comment on above: Performed By: #### L ACT #### [facility] [address] [place] [address] Dr. Mriian Velasco Erythrocyte distribution width (RBC) [Ratio] 12.0 % Normal 11.0-15.0 [facility] Comment on above: Performed By: #### L ACT #### [facility] [address] [place] [address] Dr. Mirian Velasco Hematocrit (Bld) [Volume fraction] 37.3 % Normal 36.0-48.0 [facility] Comment on above: Performed By: #### L ACT #### [facility] [address] [place] [address] Dr. Mirian Velasco Hemoglobin (Bld) [Mass/Vol] 12.1 g/dL Normal 12.0-16.0 [facility] Comment on above: Performed By: #### L ACT #### [facility] [address] [place] [address] Dr. Mirian Velasco IG # 0.03 10e3/ul Normal 0.00-0.03 [facility] Comment on above: Performed By: #### L ACT #### [facility] [address] [place] [address] Dr. Mirian Velasco IG % 0.4 % Normal 0.0-0.5 [facility] Comment on above: Performed By: #### L ACT #### [facility] [address] [place] [address] Dr. Mirian Velasco LYMPH # 1.8 103/ul Normal 1.2-3.8 [facility] Comment on above: Performed By: #### L ACT #### [facility] [address] [place] [address] Dr. Mirian Velasco Lymphocytes/100 WBC (Bld) 25.2 % Normal 20.5-60.0 [facility] Comment on above: Performed By: #### L ACT #### [facility] [address] [place] [address] Dr. Mirian Velasco MANUAL DIFF REQ NO Normal [facility] Comment on above: Performed By: #### L ACT #### [facility] [address] [place] [address] Dr. Mirian Velasco MCH (RBC) [Entitic mass] 29.0 pg Normal 26.7-34.0 [facility] Comment on above: Performed By: #### L ACT #### [facility] [address] [place] [address] Dr. Mirian Velasco MCHC (RBC) [Mass/Vol] 32.4 g/dL Normal 29.9-35.2 [facility] Comment on above: Performed By: #### L ACT #### [facility] [address] [place] [address] Dr. Mirian Velasco MCV (RBC) [Entitic vol] 89.4 fL Normal 81.0-99.0 [facility] Comment on above: Performed By: #### L ACT #### [facility] [address] [place] [address] Dr. Mirian Velasco MONO # 0.4 103/ul Normal 0.3-0.8 [facility] Comment on above: Performed By: #### L ACT #### [facility] [address] [place] [address] [address] Mirian Velasco Monocytes/100 WBC (Bld) 5.8 % Normal 1.7-12.0 [facility] Comment on above: Performed By: #### L ACT #### [facility] [address] [place] [address] [address] Mirian Velasco NEUT # 4.6 103/ul Normal 1.4-6.5 [facility] Comment on above: Performed By: #### L ACT #### [facility] [address] [place] [address] [address] Mirian Velasco Neutrophils/100 WBC (Bld) 64.3 % Normal 43.0-75.0 [facility] Comment on above: Performed By: #### L ACT #### [facility] [address] [place] [address] [address] Mirian Velasco Platelet mean volume (Bld) [Entitic vol] 8.6 fL Critically low 9.5-13.5 [facility] Comment on above: Performed By: #### L ACT #### [facility] [address] [place] [address] [address] Mirian Velasco PLT 597 103/ul Critically high 150-450 [facility] Comment on above: Performed By: #### L ACT #### [facility] [address] [id number] [address] Mirian Velasco RBC 4.17 106/ul Critically low 4.20-5.40 [facility] Comment on above: Performed By: #### L ACT #### [facility] [address] [address] [address] Mirian Velasco WBC 7.2 103/ul Normal 4.0-11.0 [facility] Comment on above: Performed By: #### L ACT #### [facility] [address] [address] [address] ABD/PELVIS WO CONon [...] LORRI TRIPLETT Date: 2022-04-17 11:19 Normal [facility] ER URINE PROFILEon 2 Bilirubin Ql (U) Negative Normal NEGATIVE [facility] Comment on above: Performed By: #### P T #### [facility] [address] [place], [place] [address] Dr. Mirian Velasco Clarity (U) CLEAR Normal CLEAR [facility] Comment on above: Performed By: #### P T #### [facility] [address] [place], [place] [address] Dr. Mirian Velasco Color (U) YELLOW Normal YELLOW [facility] Comment on above: Performed By: #### P T #### [facility] [address] [address] [address] Mirian KING A micrscopic examina tion will be performed if indicated. Normal [facility] Comment on above: Performed By: #### P T #### [facility] [address] [place] [address] [address] Mirian Velasco Glucose Ql (U) Negative Normal NEGATIVE [facility] Comment on above: Performed By: #### P T #### [facility] [address] [address] [address] Mirian Velasco Hemoglobin Ql (U) Negative Normal NEGATIVE [facility] Comment on above: Performed By: #### P T #### [facility] [address] [place] [address] Dr. Mirian Velasco Ketones Ql (U) Negative Normal NEGATIVE [facility] Comment on above: Performed By: #### P T #### [facility] [address] [place] [address] Dr. Mirian Velasco LEUKOCYTES Negative Normal NEGATIVE [facility] Comment on above: Performed By: #### P T #### [facility] [address] [address] [address] Mirian Velasco Nitrite Ql (U) Negative Normal NEGATIVE [facility] Comment on above: Performed By: #### P T #### [facility] [address] [address] [address] Mirian Velasco pH (U) 5.5 [pH] Normal 5-9 [facility] Comment on above: Performed By: #### P T #### [facility] [address] [address] [address] Mirian Velasco SPEC GRAVITY >=1.030 Abnormal 1.005-<=1. 025 [facility] Comment on above: Performed By: #### P T #### [facility] [address] [place] [address] Dr. Mirian Velasco UA PROTEIN Negative Normal NEGATIVE/ TRACE [facility] Comment on above: Performed By: #### P T #### [facility] [address] [place] [address] Dr. Mirian Velasco UR MICRO IND NOT INDICATED Normal [facility] Comment on above: Performed By: #### P T #### [facility] [address] [place] [address] Dr. Mirian Velasco Urobilinogen Qn (U) 0.2 {Lyubov'U}/dL Normal 0.2 - 1. 0 [facility] Comment on above: Performed By: #### P T #### [facility] [address] [place] [address] Dr. Mirian Velasco LIPASEon 04-17-2022 Lipase [Catalytic activity/Vol] 117.0 U/L Normal 73.0-393.0 [facility] Comment on above: Performed By: #### P T #### [facility] [address] [place] [address] Dr. Mirian Velasco PROF 14(COMP METB)on 022 Albumin [Mass/Vol] 3.5 g/dL Normal 3.4-5.0 [facility] Comment on above: Performed By: #### P T #### [facility] [address] [place] [address] Dr. Mirian Velasco Albumin/Globulin [Mass ratio] 0.9 {ratio} Normal [facility] Comment on above: Performed By: #### P T #### [facility] [address] [place] [address] Dr. Mirian Velasco ALP [Catalytic activity/Vol] 237 U/L Critically high 46-116 [facility] Comment on above: Performed By: #### P T #### [facility] [address] [place] [address] Dr. Mirian Velasco ALT [Catalytic activity/Vol] 53 U/L Normal 14-59 [facility] Comment on above: Performed By: #### P T #### [facility] [address] [place] [address] Dr. Mirian Velasco Anion gap [Moles/Vol] 11.0 mmol/L Normal [facility] Comment on above: Performed By: #### P T #### [facility] [address] [address] [address] Mirian Velasco AST [Catalytic activity/Vol] 45 U/L Critically high 15-37 [facility] Comment on above: Performed By: #### P T #### [facility] [address] [address] [address] Mirian Velasco Bilirubin [Mass/Vol] 0.2 mg/dL Normal 0.2-1.0 [facility] Comment on above: Performed By: #### P T #### [facility] [address] [address] [address] Mirian Velasco Calcium [Mass/Vol] 9.3 mg/dL Normal 8.5-10.1 [facility] Comment on above: Performed By: #### P T #### [facility] [address] [place] [address] Dr. Mirian Velasco Chloride [Moles/Vol] 105 mmol/L Normal 98-107 [facility] Comment on above: Performed By: #### P T #### [facility] [address] [address] [address] Mirian Velasco CO2 [Moles/Vol] 29.5 mmol/L Normal 21.0-32.0 [facility] Comment on above: Performed By: #### P T #### [facility] [address] [address] [address] Mirian Velasco Creatinine [Mass/Vol] 0.69 mg/dL Normal 0.55-1.02 [facility] Comment on above: Performed By: #### P T #### [facility] [address] [address] [address] Mirian Velasco EGFR-AF CITIZEN OF [place] >110 Normal >=60 [facility] Comment on above: Performed By: #### P T #### [facility] [address] [place] [address] Dr. Mirian Velasco EGFR-NON AF CITIZEN OF [place] >90 Normal >=60 [facility] Comment on above: Performed By: #### P T #### [facility] [address] [place] [address] Dr. Mirian Velasco Globulin (S) [Mass/Vol] 4.0 g/dL Normal [facility] Comment on above: Performed By: #### P T #### [facility] [address] [address] [address] Mirian Velasco Glucose [Mass/Vol] 107 mg/dL Critically high 74-106 [facility] Comment on above: Performed By: #### P T #### [facility] [address] [address] [address] Mirian Velasco Potassium [Moles/Vol] 4.5 mmol/L Normal 3.5-5.1 [facility] Comment on above: Performed By: #### P T #### [facility] [address] [place] [address] Dr. Mirian Velasco Protein [Mass/Vol] 7.5 g/dL Normal 6.4-8.2 [facility] Comment on above: Performed By: #### P T #### [facility] [address] [address] [address] Mirian Velasco Sodium [Moles/Vol] 141 mmol/L Normal 136-145 [facility] Comment on above: Performed By: #### P T #### [facility] [address] [address] [address] Mirian Velasco Urea nitrogen [Mass/Vol] 11.0 mg/dL Normal 7.0-18.0 [facility] Comment on above: Performed By: #### P T #### [facility] [address] [address] [address] Mirian Velasco Urea nitrogen/Creatinine [Mass ratio] 15.9 mg/mg Normal [facility] Comment on above: Performed By: #### P T #### [facility] [address] [place] [address] Dr. Mirian Velasco XR CHEST 1 Von 04-17-2022 XR CHEST 1 V EXAM: Chest x-ray HISTORY: Pain. COMPARISON: 02/20/2022 TECHNIQUE: AP portable upright view of the chest. FINDINGS: Heart and Vascularity are unremarkable. Lungs are free of focal infiltrates. No effusions are noted. Impression: No acute heart or lung disease identified. Electronically authenticated by: NICKI BUTT Date: 2022-04-17 11:03 Normal [facility] Basic metabolic 2000 panelon 04-05-2022 Anion gap [Moles/Vol] 13 mmol/L Normal 9-18 [facility] Comment on above: Order Comment: Speci men Type: BLOOD SPECIMEN Ordering Facility: [facility] Address: [address] [place] [address] Performed By: #### 5 8410-2 #### [facility] CLIA [id number] [address] [place] [address] [place] Calcium [Mass/Vol] 9.0 mg/dL Normal 8.5-10.2 [facility] Comment on above: Order Comment: Speci men Type: BLOOD SPECIMEN Ordering Facility: [facility] Address: [address] [place] [address] Performed By: #### 5 8410-2 #### [facility] CLIA [id number] [address] [place] [address] [place] Chloride [Moles/Vol] 104 mmol/L Normal 97-105 [facility] Comment on above: Order Comment: Speci men Type: BLOOD SPECIMEN Ordering Facility: [facility] Address: [address] [place] [address] Performed By: #### 5 8410-2 #### [facility] CLIA [id number] [address] [place] [address] [place] CO2 [Moles/Vol] 25 mmol/L Normal 22-30 [facility] Comment on above: Order Comment: Speci men Type: BLOOD SPECIMEN Ordering Facility: [facility] Address: [address] [place] [address] Performed By: #### 5 8410-2 #### [facility] CLIA [id number] [address] [place] [address] [place] Creatinine [Mass/Vol] 0.65 mg/dL Normal 0.58-0.96 [facility] Comment on above: Order Comment: Speci men Type: BLOOD SPECIMEN Ordering Facility: [facility] Address: [address] [place], [place] [address] [place] [address] Performed By: #### 5 8410-2 #### [facility] CLIA [id number] [address] [place] [address] [place] ESTIMATED GLOMERULAR FILTRATION RATE 108 mL/min/1.73m??? Normal >=60 [facility] Comment on above: Order Comment: Leanne terry Type: BLOOD SPECIMEN Ordering Facility: [facility] Address: [address] [facility] [address] [place] [address] Result Comment: Mary mated Glomerular Filtration Rate [...] GFR. Performed By: #### 5 8410-2 #### [facility] CLIA [id number] [place] [address] [place] Glucose [Mass/Vol] 109 mg/dL High 74-99 [facility] Comment on above: Order Comment: Leanne terry Type: BLOOD SPECIMEN Ordering Facility: [facility] Address: [address] [place] [address] Result Comment: The [place] Diabetes [employer] (ADA) provides guidance for cutoff [...] Standards of Medical Care in Diabetes 2016, [place] [employer]. Diabetes Care. 2016.39(Suppl 1). Performed By: #### 5 8410-2 #### [facility] CLIA [id number] [address] [place] [address] [place] Potassium [Moles/Vol] 3.9 mmol/L Normal 3.7-5.1 [facility] Comment on above: Order Comment: Speci men Type: BLOOD SPECIMEN Ordering Facility: [facility] Address: [address] [place] [address] Performed By: #### 5 8410-2 #### [facility] CLIA [id number] [address] [place] [address] [place] Sodium [Moles/Vol] 142 mmol/L Normal 136-144 [facility] Comment on above: Order Comment: Speci men Type: BLOOD SPECIMEN Ordering Facility: [facility] Address: [address] [place] [address] Performed By: #### 5 8410-2 #### [facility] CLIA [id number] [address] [place] [address] [place] Urea nitrogen [Mass/Vol] 7 mg/dL Normal 7-21 [facility] Comment on above: Order Comment: Speci men Type: BLOOD SPECIMEN Ordering Facility: [facility] Address: [address] [place] [address] Performed By: #### 5 8410-2 #### [facility] CLIA [id number] [address] [place] [address] [place] CBC W Auto Differential pane l (Bld)on 04-05-2022 Basophils (Bld) [#/Vol] 0.05 10*3/uL Normal <0.11 [facility] Comment on above: Order Comment: Speci men Type: BLOOD SPECIMENOrdering Facility: [facility] Address: [address] [place] [address] Performed By: #### B MP #### [place] [address] Basophils/100 WBC (Bld) 0.7 % Normal [facility] Comment on above: Order Comment: Speci men Type: BLOOD SPECIMENOrdering Facility: [facility] Address: [address] [place] [address] Performed By: #### B MP #### [place] [address] [id number] Differential cell count method Nom (Bld) Auto Normal [facility] Comment on above: Order Comment: Speci men Type: BLOOD SPECIMENOrdering Facility: [facility] Address: [address] [place] [address] Performed By: #### B MP #### [phone] Eosinophils (Bld) [#/Vol] 0.55 10*3/uL High <0.46 [facility] Comment on above: Order Comment: Speci men Type: BLOOD SPECIMENOrdering Facility: [facility] Address: [address] [place] [address] Performed By: #### B MP #### [address] [phone] Eosinophils/100 WBC (Bld) 8.2 % Normal [facility] Comment on above: Order Comment: Speci men Type: BLOOD SPECIMENOrdering Facility: [facility] Address: [address] [place] [address] Performed By: #### B MP #### [address] [address] Erythrocyte distribution width (RBC) [Ratio] 12.8 % Normal 11.5-15.0 [facility] Comment on above: Order Comment: Speci men Type: BLOOD SPECIMENOrdering Facility: [facility] Address: [address] [place] [address] Performed By: #### B MP #### [address] [id number] Hematocrit (Bld) [Volume fraction] 31.1 % Low 36.0-46.0 [facility] Comment on above: Order Comment: Speci men Type: BLOOD SPECIMENOrdering Facility: [facility] Address: [address] [place] [address] Performed By: #### B MP #### [address] [id number] Hemoglobin (Bld) [Mass/Vol] 10.5 g/dL Low 11.5-15.5 [facility] Comment on above: Order Comment: Speci men Type: BLOOD SPECIMENOrdering Facility: [facility] Address: [address] [place] [address] Performed By: #### B MP #### [address] [phone] IMMATURE GRAN % 0.4 % Normal [facility] Comment on above: Order Comment: Speci men Type: BLOOD SPECIMENOrdering Facility: [facility] Address: [address] [place] [address] Performed By: #### B MP #### [phone] IMMATURE GRAN ABS 0.03 k/uL Normal <0.10 [facility] Comment on above: Order Comment: Speci men Type: BLOOD SPECIMENOrdering Facility: [facility] Address: [address] [place] [address] Performed By: #### B MP #### [address] [id number] Lymphocytes (Bld) [#/Vol] 1.47 10*3/uL Normal 1.00-4.00 [facility] Comment on above: Order Comment: Speci men Type: BLOOD SPECIMENOrdering Facility: [facility] Address: [address] [place] [address] Performed By: #### B MP #### [phone] Lymphocytes/100 WBC (Bld) 22.0 % Normal [facility] Comment on above: Order Comment: Speci men Type: BLOOD SPECIMENOrdering Facility: [facility] Address: [address] [place] [address] Performed By: #### B MP #### [address] [phone] MCH (RBC) [Entitic mass] 29.9 pg Normal 26.0-34.0 [facility] Comment on above: Order Comment: Speci men Type: BLOOD SPECIMENOrdering Facility: [facility] Address: [address] [place] [address] Performed By: #### B MP #### [address] [phone] MCHC (RBC) [Mass/Vol] 33.8 g/dL Normal 30.5-36.0 [facility] Comment on above: Order Comment: Speci men Type: BLOOD SPECIMENOrdering Facility: [facility] Address: [address] [place] [address] Performed By: #### B MP #### [phone] MCV (RBC) [Entitic vol] 88.6 fL Normal 80.0-100.0 [facility] Comment on above: Order Comment: Speci men Type: BLOOD SPECIMENOrdering Facility: [facility] Address: [address] [place] [address] Performed By: #### B MP #### [phone] Monocytes (Bld) [#/Vol] 0.50 10*3/uL Normal <0.87 [facility] Comment on above: Order Comment: Speci men Type: BLOOD SPECIMENOrdering Facility: [facility] Address: [address] [place] [address] Performed By: #### B MP #### [address] [id number] Monocytes/100 WBC (Bld) 7.5 % Normal [facility] Comment on above: Order Comment: Speci men Type: BLOOD SPECIMENOrdering Facility: [facility] Address: [address] [place] [address] Performed By: #### B MP #### [phone] Neutrophils (Bld) [#/Vol] 4.08 10*3/uL Normal 1.45-7.50 [facility] Comment on above: Order Comment: Speci men Type: BLOOD SPECIMENOrdering Facility: [facility] Address: [address] [place] [address] Performed By: #### B MP #### [phone] Neutrophils/100 WBC (Bld) 61.2 % Normal [facility] Comment on above: Order Comment: Speci men Type: BLOOD SPECIMENOrdering Facility: [facility] Address: [address] [place] [address] Performed By: #### B MP #### [address] [phone] Nucleated RBC (Bld) [#/Vol] 10*3/uL Normal <0.01 [facility] Comment on above: Order Comment: Speci men Type: BLOOD SPECIMENOrdering Facility: [facility] Address: [address] [place] [address] Performed By: #### B MP #### [address] [phone] Nucleated RBC/100 WBC (Bld) [Ratio] 0.0 /100 WBC Normal [facility] Comment on above: Order Comment: Speci men Type: BLOOD SPECIMENOrdering Facility: [facility] Address: [address] [place] [address] Performed By: #### B MP #### [phone] Platelet mean volume (Bld) [Entitic vol] 8.9 fL Low 9.0-12.7 [facility] Comment on above: Order Comment: Speci men Type: BLOOD SPECIMENOrdering Facility: [facility] Address: [address] [place] [address] Performed By: #### B MP #### [phone] Platelets (Bld) [#/Vol] 455 10*3/uL High 150-400 [facility] Comment on above: Order Comment: Speci men Type: BLOOD SPECIMENOrdering Facility: [facility] Address: [address] [place], [place] [id number] Performed By: #### B MP #### [place] [address] RBC (Bld) [#/Vol] 3.51 10*6/uL Low 3.90-5.20 [facility] Comment on above: Order Comment: Speci men Type: BLOOD SPECIMENOrdering Facility: [facility] Address: [address] [place] [address] Performed By: #### B MP #### [address] [place] [phone] WBC (Bld) [#/Vol] 6.68 10*3/uL Normal 3.70-11.00 [facility] Comment on above: Order Comment: Speci men Type: BLOOD SPECIMENOrdering Facility: [facility] Address: [address] [place] [address] Performed By: #### B MP #### [place] [phone] CNDSon 04-05-2022 CNDS HNO ID: [id number] Author: Jessi Sheets APRN.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 Service: Colorectal Author Type: Nurse Practitioner Type: [...] of the summary. CONSULTING TEAMS DURING HOSPITALIZATION: [facility] Treatment Team: Attending Provider: [...] only. 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 Remained nauseated. POD4 re-advanced to full liquids [...] by mo (more content not included)... Normal [facility] Magnesium SerPl-mCncon 04-05 Magnesium [Mass/Vol] 2.0 mg/dL Normal 1.7-2.3 [facility] Comment on above: Order Comment: Speci men Type: BLOOD SPECIMEN Ordering Facility: [facility] Address: [address] [place] [address] Performed By: #### 5 8410-2 #### [facility] [id number] [facility] NURSING PROGon 04-05-2022 NURSING PROG HNO ID: [id number] Author: Liliana Mayer RN Service: ? 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 This note was completed by: Liliana Mayer [facility] NURSING PROG HNO ID: [id number] Author: Liliana Mayer RN Service: ? Author [...] This note was completed by: Liliana Mayer [facility] NURSING PROG HNO ID: [id number] Author: Eagle Gu RN Service: ? Author Type: Registered Nurse Type: Nursing Progress Note Filed: 04/04/2022 10:58 PM Note Text: Nursing Progress Note Patient Name: Mary Leal Patient Location: [address]/ Daily Note:04/04/22 2140 Pt is alert and oriented x3. Pt mabulating independently. Surgical sites intact. Pt refusing IVF, pt states she drinks enough water. This note was completed by: Eagle Gu [facility] NUTRITIONon 04-05-2022 NUTRITION HNO ID: [id number] Author: Merced Morales DTR Service: Nutrition Therapy Author Type: Supervisor Prop Making Type: Nutrition Filed: 04/05/2022 10:42 AM Note Text: NUTRITION THERAPY KNITTING TESTER NOTE SERVICE DATE: 04/05/2022 SERVICE TIME: 9:45 [...] April 05, 2022 TIME: 9:54 AM Normal [facility] Phosphate SerPl-mCncon 04-05 Phosphate [Mass/Vol] 4.6 mg/dL Normal 2.7-4.8 [facility] Comment on above: Order Comment: Speci men Type: BLOOD SPECIMEN Ordering Facility: [facility] Address: [address] [place] [address] Performed By: #### 5 8410-2 #### [facility] CLIA [id number] [address] [place] [address] [place] Basic metabolic 2000 panelon 04-04-2022 Anion gap [Moles/Vol] 10 mmol/L Normal 9-18 [facility] Comment on above: Order Comment: Speci men Type: BLOOD SPECIMENOrdering Facility: [facility] Address: [address] [place] [address] Performed By: #### 2 4321-2, , 2776-11 ####[facility] [id number] [place] [address] [place] Calcium [Mass/Vol] 8.9 mg/dL Normal 8.5-10.2 [facility] Comment on above: Order Comment: Speci men Type: BLOOD SPECIMENOrdering Facility: [facility] Address: [address] [place], [place] [address] Performed By: #### 2 4321-2, , 2776-11 ####[facility] [id number] [place] [id number] [place] Chloride [Moles/Vol] 104 mmol/L Normal 97-105 [facility] Comment on above: Order Comment: Speci men Type: BLOOD SPECIMENOrdering Facility: [facility] Address: [address] [place], [place] [address] Performed By: #### 2 4321-2, , 2776-11 ####[facility] [id number] [place] [id number] [place] CO2 [Moles/Vol] 26 mmol/L Normal 22-30 [facility] Comment on above: Order Comment: Speci men Type: BLOOD SPECIMENOrdering Facility: [facility] Address: [address] [place] [address] Performed By: #### 2 4321-2, , 2776-11 ####[facility] [id number] [place] [id number] [place] Creatinine [Mass/Vol] 0.56 mg/dL Low 0.58-0.96 [facility] Comment on above: Order Comment: Speci men Type: BLOOD SPECIMENOrdering Facility: [facility] Address: [address] [place] [address] Performed By: #### 2 4321-2, , 2776-11 ####[facility] [id number] [place] [id number] [place] ESTIMATED GLOMERULAR FILTRATION RATE 112 mL/min/1.73m??? Normal >=60 [facility] Comment on above: Order Comment: Speci men Type: BLOOD SPECIMENOrdering Facility: [facility] Address: [address] [place] [address] Result Comment: Mary mated Glomerular Filtration Rate [...] #### 2 4321-2, , 2776-11 ####[facility] [id number] [place] [id number] [place] Glucose [Mass/Vol] 112 mg/dL High 74-99 [facility] Comment on above: Order Comment: Speci harrison Type: BLOOD SPECIMENOrdering Facility: [facility] Address: [address] [place], [place] [id number] Result Comment: The [place] [employer] (ADA) provides guidance for cutoff [...] Standards of Medical Care in Diabetes 2016, [place] [employer]. Diabetes Care. 2016.39(Suppl 1). Performed By: #### 2 4321-2, , 2776-11 ####[facility] [id number] [place] [id number] [place] Potassium [Moles/Vol] 3.9 mmol/L Normal 3.7-5.1 [facility] Comment on above: Order Comment: Leanne harrison Type: BLOOD SPECIMENOrdering Facility: [facility] Address: [address] [place], [place] [id number] Performed By: #### 2 4321-2, , 2776-11 ####[facility] [id number] [place] [id number] [place] Sodium [Moles/Vol] 140 mmol/L Normal 136-144 [facility] Comment on above: Order Comment: Leanne harrison Type: BLOOD SPECIMENOrdering Facility: [facility] Address: [address] [place], [place] [id number] Performed By: #### 2 4321-2, , 2776-11 ####[facility]ORY[facility] [id number] [place] [id number] [place] Urea nitrogen [Mass/Vol] 3 mg/dL Low 05-26 [facility] Comment on above: Order Comment: Speci men Type: BLOOD SPECIMENOrdering Facility: [facility] Address: [address] [place] [address] Performed By: #### 2 4321-2, 17058-9, 2777-1 ####[facility] [id number] [place] [address] [place] CBC W Auto Differential pane l (Bld)on 04-04-2022 Basophils (Bld) [#/Vol] 0.03 10*3/uL Normal <0.11 [facility] Comment on above: Order Comment: Speci men Type: BLOOD SPECIMEN Ordering Facility: [facility] Address: [address] [place] [address] Performed By: #### 5 7021-8 #### [facility] CLIA [id number] [address] [place] [address] [place] Basophils/100 WBC (Bld) 0.5 % Normal [facility] Comment on above: Order Comment: Speci men Type: BLOOD SPECIMEN Ordering Facility: [facility] Address: [address] [place] [address] Performed By: #### 5 7021-8 #### [facility] CLIA [id number] [address] [place] [address] [place] Differential cell count method Nom (Bld) Auto Normal [facility] Comment on above: Order Comment: Speci men Type: BLOOD SPECIMEN Ordering Facility: [facility] Address: [address] [place] [address] Performed By: #### 5 7021-8 #### [facility] CLIA [id number] [address] [place] [address] [place] Eosinophils (Bld) [#/Vol] 0.48 10*3/uL High <0.46 [facility] Comment on above: Order Comment: Speci men Type: BLOOD SPECIMEN Ordering Facility: [facility] Address: [address] [place] [address] Performed By: #### 5 7021-8 #### [facility] CLIA [id number] [address] [place] [address] [place] Eosinophils/100 WBC (Bld) 7.7 % Normal [facility] Comment on above: Order Comment: Speci men Type: BLOOD SPECIMEN Ordering Facility: [facility] Address: [address] [place] [address] Performed By: #### 5 7021-8 #### [facility] CLIA [id number] [address] [place] [address] [place] Erythrocyte distribution width (RBC) [Ratio] 12.7 % Normal 11.5-15.0 [facility] Comment on above: Order Comment: Speci men Type: BLOOD SPECIMEN Ordering Facility: [facility] Address: [address] [place] [address] Performed By: #### 5 7021-8 #### [facility] CLIA [id number] [address] [place] [address] [place] Hematocrit (Bld) [Volume fraction] 31.2 % Low 36.0-46.0 [facility] Comment on above: Order Comment: Speci men Type: BLOOD SPECIMEN Ordering Facility: [facility] Address: [address] [place] [address] Performed By: #### 5 7021-8 #### [facility] CLIA [id number] [address] [place] [address] [place] Hemoglobin (Bld) [Mass/Vol] 10.7 g/dL Low 11.5-15.5 [facility] Comment on above: Order Comment: Speci men Type: BLOOD SPECIMEN Ordering Facility: [facility] Address: [address] [place] [address] Performed By: #### 5 7021-8 #### [facility] CLIA [id number] [address] [place] [address] [place] IMMATURE GRAN % 0.5 % Normal [facility] Comment on above: Order Comment: Speci men Type: BLOOD SPECIMEN Ordering Facility: [facility] Address: [address] [place] [address] Performed By: #### 5 7021-8 #### [facility] CLIA [id number] [address] [place] [address] [place] IMMATURE GRAN ABS 0.03 k/uL Normal <0.10 [facility] Comment on above: Order Comment: Speci men Type: BLOOD SPECIMEN Ordering Facility: [facility] Address: [address] [place] [address] Performed By: #### 5 7021-8 #### [facility] CLIA [id number] [address] [place] [address] Lymphocytes (Bld) [#/Vol] 1.13 10*3/uL Normal 1.00-4.00 [facility] Comment on above: Order Comment: Speci men Type: BLOOD SPECIMEN Ordering Facility: [facility] Address: [address] [place] [address] Performed By: #### 5 7021-8 #### [facility] CLIA [id number] [address] [place] [address] Lymphocytes/100 WBC (Bld) 18.2 % Normal [facility] Comment on above: Order Comment: Speci men Type: BLOOD SPECIMEN Ordering Facility: [facility] Address: [address] [place] [address] Performed By: #### 5 7021-8 #### [facility] CLIA [id number] [address] [place] [address] [place] MCH (RBC) [Entitic mass] 29.9 pg Normal 26.0-34.0 [facility] Comment on above: Order Comment: Speci men Type: BLOOD SPECIMEN Ordering Facility: [facility] Address: [address] [place] [address] Performed By: #### 5 7021-8 #### [facility] CLIA [id number] [address] [place] [address] MCHC (RBC) [Mass/Vol] 34.3 g/dL Normal 30.5-36.0 [facility] Comment on above: Order Comment: Speci men Type: BLOOD SPECIMEN Ordering Facility: [facility] Address: [address] [place] [address] Performed By: #### 5 7021-8 #### [facility] CLIA [id number] [address] [place] [address] [place] MCV (RBC) [Entitic vol] 87.2 fL Normal 80.0-100.0 [facility] Comment on above: Order Comment: Speci men Type: BLOOD SPECIMEN Ordering Facility: [facility] Address: [address] [place] [address] Performed By: #### 5 7021-8 #### [facility] CLIA [id number] [address] [place] [address] [place] Monocytes (Bld) [#/Vol] 0.36 10*3/uL Normal <0.87 [facility] Comment on above: Order Comment: Speci men Type: BLOOD SPECIMEN Ordering Facility: [facility] Address: [address] [place] [address] Performed By: #### 5 7021-8 #### [facility] CLIA [id number] [address] [place] [address] [place] Monocytes/100 WBC (Bld) 5.8 % Normal [facility] Comment on above: Order Comment: Speci men Type: BLOOD SPECIMEN Ordering Facility: [facility] Address: [address] [place] [address] Performed By: #### 5 7021-8 #### [facility] CLIA [id number] [address] [place] [address] [place] Neutrophils (Bld) [#/Vol] 4.18 10*3/uL Normal 1.45-7.50 [facility] Comment on above: Order Comment: Speci men Type: BLOOD SPECIMEN Ordering Facility: [facility] Address: [address] [place] [address] Performed By: #### 5 7021-8 #### [facility] CLIA [id number] [address] [place] [address] [place] Neutrophils/100 WBC (Bld) 67.3 % Normal [facility] Comment on above: Order Comment: Speci men Type: BLOOD SPECIMEN Ordering Facility: [facility] Address: [address] [place] [address] Performed By: #### 5 7021-8 #### [facility] CLIA [id number] [address] [place] [address] [place] Nucleated RBC (Bld) [#/Vol] 10*3/uL Normal <0.01 [facility] Comment on above: Order Comment: Speci men Type: BLOOD SPECIMEN Ordering Facility: [facility] Address: [address] [place] [address] Performed By: #### 5 7021-8 #### [facility] CLIA [id number] [address] [place] [address] [place] Nucleated RBC/100 WBC (Bld) [Ratio] 0.0 /100 WBC Normal [facility] Comment on above: Order Comment: Speci men Type: BLOOD SPECIMEN Ordering Facility: [facility] Address: [address] [place] [address] Performed By: #### 5 7021-8 #### [facility] CLIA [id number] [address] [place] [address] [place] Platelet mean volume (Bld) [Entitic vol] 8.7 fL Low 9.0-12.7 [facility] Comment on above: Order Comment: Speci men Type: BLOOD SPECIMEN Ordering Facility: [facility] Address: [address] [place] [address] Performed By: #### 5 7021-8 #### [facility] CLIA [id number] [address] [place] [address] [place] Platelets (Bld) [#/Vol] 436 10*3/uL High 150-400 [facility] Comment on above: Order Comment: Speci men Type: BLOOD SPECIMEN Ordering Facility: [facility] Address: [address] [place] [address] Performed By: #### 5 7021-8 #### [facility] CLIA [id number] [address] [place] [address] [place] RBC (Bld) [#/Vol] 3.58 10*6/uL Low 3.90-5.20 [facility] Comment on above: Order Comment: Speci men Type: BLOOD SPECIMEN Ordering Facility: [facility] Address: [address] [place] [address] Performed By: #### 5 7021-8 #### [facility] CLIA [id number] [address] [place] [address] [facility] WBC (Bld) [#/Vol] 6.21 10*3/uL Normal 3.70-11.00 [facility] Comment on above: Order Comment: Speci men Type: BLOOD SPECIMEN Ordering Facility: [facility] Address: [address] [place] [address] Performed By: #### 5 7021-8 #### [facility] IA [id number] [place] [address] [place] Magnesium SerPl-mCncon 04-04 Magnesium [Mass/Vol] 2.1 mg/dL Normal 1.7-2.3 [facility] Comment on above: Order Comment: Speci men Type: BLOOD SPECIMENOrdering Facility: [facility] Address: [address] [place] [address] Performed By: #### 2 4321-2, 31865-8, 2777-1 ####[facility] [id number] [place] [address] [place] NURSING PROGon 04-04-2022 NURSING PROG HNO ID: [id number] Author: Dipti Crowley, MAKI Service: Nursing Author Type: Registered Nurse Type: Nursing Progress Note Filed: 04/04/2022 7:47 PM Note Text: Nursing Progress Note Patient Name: Mary Leal Patient Location: Daily Note:Patient refusing further IVF. This note was completed by: [facility] NURSING PROG HNO ID: [id number] Author: Dipti Crowley, MAKI Service: Nursing Author Type: Registered Nurse Type: Nursing Progress Note Filed: 04/04/2022 11:11 AM Note Text: Nursing Progress Note Patient Name: Mary Leal Patient Location: [address]/ED4O-62 Daily Note: Patient up in chair and [...] notified, but post call. 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 Will continue to monitor. Call light in reach. This note was completed by: [facility] Phosphate SerPl-mCncon 04-04 Phosphate [Mass/Vol] 3.2 mg/dL Normal 2.7-4.8 [facility] Comment on above: Order Comment: Speci men Type: BLOOD SPECIMENOrdering Facility: [facility] Address: [address] [place], [place] [id number] Performed By: #### 2 4321-2, 81430-9, 2777-1 ####[facility] [id number] [address] [facility] ALLIED HEALTHon 04-03-2022 ALLIED HEALTH HNO ID: [id number] Author: MALAIKA Martinez Service: ? Author Type: Hydraulic Corrugating Machine Operator Type: Allied Health Filed: 04/03/2022 5:35 PM [...] Martinez April 03, 2022 5:35 PM Normal [facility] Basic metabolic 2000 panelon 04-03-2022 Anion gap [Moles/Vol] 10 mmol/L Normal 9-18 [facility] Comment on above: Order Comment: Speci men Type: BLOOD SPECIMENOrdering Facility: [facility] Address: [address] [place] [address] Performed By: #### B MP #### [place] [id number] Calcium [Mass/Vol] 8.4 mg/dL Low 8.5-10.2 [facility] Comment on above: Order Comment: Speci men Type: BLOOD SPECIMENOrdering Facility: [facility] Address: [address] [place] [address] Performed By: #### B MP #### [place] [phone] Chloride [Moles/Vol] 103 mmol/L Normal 97-105 [facility] Comment on above: Order Comment: Speci men Type: BLOOD SPECIMENOrdering Facility: [facility] Address: [address] [place] [address] Performed By: #### B MP #### [place] [id number] CO2 [Moles/Vol] 25 mmol/L Normal 22-30 [facility] Comment on above: Order Comment: Speci men Type: BLOOD SPECIMENOrdering Facility: [facility] Address: [address] [address] Performed By: #### B MP #### [place] [phone] Creatinine [Mass/Vol] 0.60 mg/dL Normal 0.58-0.96 [facility] Comment on above: Order Comment: Speci men Type: BLOOD SPECIMENOrdering Facility: [facility] Address: [address] [place], [place] [id number] Performed By: #### B MP #### [place] [id number] ESTIMATED GLOMERULAR FILTRATION RATE 110 mL/min/1.73m??? Normal >=60 [facility] Comment on above: Order Comment: Everettei men Type: BLOOD SPECIMENOrdering Facility: [facility] Address: [address] [place] [address] Result Comment: Mary mated Glomerular Filtration Rate [...] GFR. Performed By: #### B MP #### [place] [phone] Glucose [Mass/Vol] 106 mg/dL High 74-99 [facility] Comment on above: Order Comment: Speci harrison Type: BLOOD SPECIMENOrdering Facility: [facility] Address: [address] [place] [address] Result Comment: The [place] Diabetes [employer] (ADA) provides guidance for cutoff [...] Standards of Medical Care in Diabetes 2016, [place] [employer]. Diabetes Care. 2016.39(Suppl 1). Performed By: #### B MP #### [place] [id number] Potassium [Moles/Vol] 3.3 mmol/L Low 3.7-5.1 [facility] Comment on above: Order Comment: Speci harrison Type: BLOOD SPECIMENOrdering Facility: [facility] Address: [address] [place] [address] Performed By: #### B MP #### [place] [phone] Sodium [Moles/Vol] 138 mmol/L Normal 136-144 [facility] Comment on above: Order Comment: Everettei harrison Type: BLOOD SPECIMENOrdering Facility: [facility] Address: [address] [place] [address] Performed By: #### B MP #### [place] [id number] Urea nitrogen [Mass/Vol] 4 mg/dL Low 7-21 [facility] Comment on above: Order Comment: Everettei harrison Type: BLOOD SPECIMENOrdering Facility: [facility] Address: [address] [place] [address] Performed By: #### B MP #### [phone] CBC W Auto Differential pane l (Bld)on 04-03-2022 Basophils (Bld) [#/Vol] 0.03 10*3/uL Normal <0.11 [facility] Comment on above: Order Comment: Everettei harrison Type: BLOOD SPECIMENOrdering Facility: [facility] Address: [address] [place] [address] Performed By: #### B MP #### [place] [phone] Basophils/100 WBC (Bld) 0.4 % Normal [facility] Comment on above: Order Comment: Speci men Type: BLOOD SPECIMENOrdering Facility: [facility] Address: [address] [place] [address] Performed By: #### B MP #### [place] [id number] Differential cell count method Nom (Bld) Auto Normal [facility] Comment on above: Order Comment: Speci men Type: BLOOD SPECIMENOrdering Facility: [facility] Address: [address] [place] [address] Performed By: #### B MP #### [place] [id number] Eosinophils (Bld) [#/Vol] 0.48 10*3/uL High <0.46 [facility] Comment on above: Order Comment: Speci men Type: BLOOD SPECIMENOrdering Facility: [facility] Address: [address] [place] [address] Performed By: #### B MP #### [address] Eosinophils/100 WBC (Bld) 6.5 % Normal [facility] Comment on above: Order Comment: Speci men Type: BLOOD SPECIMENOrdering Facility: [facility] Address: [address] [place] [address] Performed By: #### B MP #### [address] Erythrocyte distribution width (RBC) [Ratio] 12.5 % Normal 11.5-15.0 [facility] Comment on above: Order Comment: Speci men Type: BLOOD SPECIMENOrdering Facility: [facility] Address: [address] [place] [address] Performed By: #### B MP #### [place] [id number] Hematocrit (Bld) [Volume fraction] 29.5 % Low 36.0-46.0 [facility] Comment on above: Order Comment: Speci men Type: BLOOD SPECIMENOrdering Facility: [facility] Address: [address] [place] [address] Performed By: #### B MP #### [place] [id number] Hemoglobin (Bld) [Mass/Vol] 10.2 g/dL Low 11.5-15.5 [facility] Comment on above: Order Comment: Speci men Type: BLOOD SPECIMENOrdering Facility: [facility] Address: [address] [place] [address] Performed By: #### B MP #### [place] [id number] IMMATURE GRAN % 0.5 % Normal [facility] Comment on above: Order Comment: Speci men Type: BLOOD SPECIMENOrdering Facility: [facility] Address: [address] [place] [address] Performed By: #### B MP #### [place] [phone] IMMATURE GRAN ABS 0.04 k/uL Normal <0.10 [facility] Comment on above: Order Comment: Speci men Type: BLOOD SPECIMENOrdering Facility: [facility] Address: [address] [place] [address] Performed By: #### B MP #### [place] [id number] Lymphocytes (Bld) [#/Vol] 1.11 10*3/uL Normal 1.00-4.00 [facility] Comment on above: Order Comment: Speci men Type: BLOOD SPECIMENOrdering Facility: [facility] Address: [address] [place] [address] Performed By: #### B MP #### [id number] Lymphocytes/100 WBC (Bld) 15.0 % Normal [facility] Comment on above: Order Comment: Speci men Type: BLOOD SPECIMENOrdering Facility: [facility] Address: [address] [place] [address] Performed By: #### B MP #### [phone] MCH (RBC) [Entitic mass] 30.1 pg Normal 26.0-34.0 [facility] Comment on above: Order Comment: Speci men Type: BLOOD SPECIMENOrdering Facility: [facility] Address: [address] [place] [address] Performed By: #### B MP #### [place] [id number] MCHC (RBC) [Mass/Vol] 34.6 g/dL Normal 30.5-36.0 [facility] Comment on above: Order Comment: Speci men Type: BLOOD SPECIMENOrdering Facility: [facility] Address: [address] [place] [address] Performed By: #### B MP #### [place] [id number] MCV (RBC) [Entitic vol] 87.0 fL Normal 80.0-100.0 [facility] Comment on above: Order Comment: Speci men Type: BLOOD SPECIMENOrdering Facility: [facility] Address: [address] [place] [address] Performed By: #### B MP #### [place] [id number] Monocytes (Bld) [#/Vol] 0.46 10*3/uL Normal <0.87 [facility] Comment on above: Order Comment: Speci men Type: BLOOD SPECIMENOrdering Facility: [facility] Address: [address] [place] [address] Performed By: #### B MP #### [place] [phone] Monocytes/100 WBC (Bld) 6.2 % Normal [facility] Comment on above: Order Comment: Speci men Type: BLOOD SPECIMENOrdering Facility: [facility] Address: [address] [place] [address] Performed By: #### B MP #### [place] [phone] Neutrophils (Bld) [#/Vol] 5.27 10*3/uL Normal 1.45-7.50 [facility] Comment on above: Order Comment: Speci men Type: BLOOD SPECIMENOrdering Facility: [facility] Address: [address] [place] [address] Performed By: #### B MP #### [place] [id number] Neutrophils/100 WBC (Bld) 71.4 % Normal [facility] Comment on above: Order Comment: Speci men Type: BLOOD SPECIMENOrdering Facility: [facility] Address: [address] [place] [address] Performed By: #### B MP #### [place] [id number] Nucleated RBC (Bld) [#/Vol] 10*3/uL Normal <0.01 [facility] Comment on above: Order Comment: Speci men Type: BLOOD SPECIMENOrdering Facility: [facility] Address: [address] [place] [address] Performed By: #### B MP #### [place] [phone] Nucleated RBC/100 WBC (Bld) [Ratio] 0.0 /100 WBC Normal [facility] Comment on above: Order Comment: Speci men Type: BLOOD SPECIMENOrdering Facility: [facility] Address: [address] [place] [address] Performed By: #### B MP #### [place] [id number] Platelet mean volume (Bld) [Entitic vol] 8.6 fL Low 9.0-12.7 [facility] Comment on above: Order Comment: Speci men Type: BLOOD SPECIMENOrdering Facility: [facility] Address: [address] [place] [address] Performed By: #### B MP #### [place] [address] Platelets (Bld) [#/Vol] 342 10*3/uL Normal 150-400 [facility] Comment on above: Order Comment: Speci men Type: BLOOD SPECIMENOrdering Facility: [facility] Address: [address] [place] [address] Performed By: #### B MP #### [place] [id number] RBC (Bld) [#/Vol] 3.39 10*6/uL Low 3.90-5.20 [facility] Comment on above: Order Comment: Speci men Type: BLOOD SPECIMENOrdering Facility: [facility] Address: [address] [place] [address] Performed By: #### B MP #### [place] [id number] WBC (Bld) [#/Vol] 7.39 10*3/uL Normal 3.70-11.00 [facility] Comment on above: Order Comment: Speci men Type: BLOOD SPECIMENOrdering Facility: [facility] Address: [address] [place] [address] Performed By: #### B MP #### [place] [phone] CONSULT PROGon 04-03-2022 CONSULT PROG HNO ID: [id number] Author: Sarwat Huddleston PA-C Service: Pain Management Author Type: Physician Market Gardener Type: Consult Progress Note Filed: 04/03/2022 8:39 [...] in post op pain control. ? Ms. Elvis reports adequate incisional?pain controlled at this time with Dilaudid IV PRN and TAPS in place. Pain level is 7/10. TAPS Ropi 0.1% at 0/2?each 04/01/22 At this time she report most [...] and solution: Yes. Solution Ropi 0.1% at 0//2?e. Adjuvant Pain Medication: See below Current Facility-Administered [...] appears comf (more content not included)... Normal [facility] CT ABD/PEL W IVCONon 022 CT [...] Lower thorax: Visualized lung bases are clear. Lock Stitch Channeler (topogram) images: No additional findings. IMPRESSION: Postsurgical [...] collection is present in the lower pelvis Stamp Classifier: CAPRI Transcribe Date/Time: Apr 03 2022 9:00P Dictated by : SHELBY ESPINOSA MD This examination was interpreted and the report reviewed and electronically signed by: SHELBY ESPINOSA MD on Apr 03 2022 9:12PM EST [id number] [facility] Magnesium SerPl-mCncon 04-03 Magnesium [Mass/Vol] 1.6 mg/dL Low 1.7-2.3 [facility] Comment on above: Order Comment: Speci men Type: BLOOD SPECIMENOrdering Facility: [facility] Address: [address] [place] [address] Performed By: #### B MP #### [place] [address] NURSING PROGon 04-03-2022 NURSING PROG HNO ID: [id number] Author: Annette Ford RN Service: ? Author Type: Registered Nurse Type: Nursing Progress Note Filed: 04/03/2022 9:39 PM Note Text: Nursing Progress Note Patient Name: Mary Leal Patient Location: [facility]/JY5O-53 Daily Note: 2129: Pt declined to have all oral medications. They just go right through me. I cannot take them. . Made RN aware. This note was completed by: Annette Ford [facility] NURSING PROG HNO ID: [id number] Author: Dipti Crowley RN Service: Nursing Author Type: Registered Nurse Type: Nursing Progress Note Filed: 04/03/2022 2:51 PM Note Text: Nursing Progress Note Patient Name: Mary Leal Patient Location: / Daily Note:Patient unable to tolerate powder form of potassium due to nausea. Patient unable to tolerate IV form, it feels like It's paralyzing my arm . Attempted to dilute boluses and lower rates with no success. SR paged with events ([phone]). Awaiting further orders. This note was completed by: Dipti [facility] NURSING PROG HNO ID: [id number] Author: Dipti Crowley RN Service: Nursing Author Type: Registered Nurse Type: Nursing Progress Note Filed: 04/03/2022 11:33 AM Note Text: Nursing Progress Note Patient Name: Mary Leal Patient Location: [place] [address]/[address] Daily Note: Patient Up independently in room [...] to monitor. This note was completed by: [facility] NURSING PROG HNO ID: [id number] Author: Chava Remy RN Service: PICC Team [...] 03, 2022 TIME: 8:37 AM PAGER/CONTACT #: [facility] NURSING PROG HNO ID: [id number] Author: Kev Leone RN Service: ? Author Type: Registered Nurse Type: Nursing Progress Note Filed: 04/03/2022 3:50 AM Note Text: Nursing Progress Note Patient Name: Mary Leal Patient Location: [place] [address] Daily Note: 2100: Pt refusing all PO meds at this time, states she's concerned that she's not digesting them properly. Paan currently being controlled with bilateral blocks and PRN IV pain medication. This note was completed by: Kev Leone [facility] Phosphate SerPl-mCncon 04-03 Phosphate [Mass/Vol] 3.3 mg/dL Normal 2.7-4.8 [facility] Comment on above: Order Comment: Speci men Type: BLOOD SPECIMENOrdering Facility: [facility] Address: [address] [place] [id number] Performed By: #### B #### [place] [address] [facility] 04-02-2022 ALLIED HEALTH HNO ID: [id number] Author: Tri Zee RT(R) Service: Radiology Author Type: Technologist Type: Allied [...] Ban(R) April 02, 2022 9:12 AM Normal [facility] CONSULT PROGon 04-02-2022 CONSULT PROG HNO ID: [id number] Author: Sarwat Huddleston PA-C Service: Pain Management Author Type: Physician Market Gardener Type: Consult Progress Note Filed: 04/02/2022 9:00 [...] 29.3 5 (more content not included)... Normal [facility] NURSING PROGon 04-02-2022 NURSING PROG HNO ID: [id number] Author: Dipti Crowley, RN Service: Nursing Author Type: Registered Nurse Type: Nursing Progress Note Filed: 04/02/2022 1:23 PM Note Text: Nursing Progress Note Patient Name: Mary Leal Patient Location: [address]/FO6J-27 Daily Note: Patient AANDOx3. VSS. RA POx. D51/2NS at 75 ml/hr. B/L Tap Block dressings CDI. Old ostomy with ABD and tape, CDI. Transverse and lap sites VENEER LATHE OPERATOR with glue. NPO status. Medicated with IV [...] to monitor. This note was completed by: Dipti Crowley [facility] XR ABDOMEN 1V SUPINEon 04-02 XR ABDOMEN [...] may be of help for further evaluation. Stamp Classifier: CAPRI Transcribe Date/Time: Apr 02 2022 9:16A Dictated by : JOAQUIN BRYANT MD This examination was interpreted and the report reviewed and electronically signed by: JOAQUIN BRYANT MD on Apr 02 2022 9:19AM EST [id number] Normal [facility] Basic metabolic 2000 panelon 04-01-2022 Anion gap [Moles/Vol] 9 mmol/L Normal 9-18 [facility] Comment on above: Order Comment: Speci men Type: BLOOD SPECIMENOrdering Facility: [facility] Address: [address] [place] [address] Performed By: #### B MP #### [place] [id number] Calcium [Mass/Vol] 7.9 mg/dL Low 8.5-10.2 [facility] Comment on above: Order Comment: Speci men Type: BLOOD SPECIMENOrdering Facility: [facility] Address: [address] [place] [address] Performed By: #### B MP #### [phone] Chloride [Moles/Vol] 106 mmol/L High 97-105 [facility] Comment on above: Order Comment: Speci men Type: BLOOD SPECIMENOrdering Facility: [facility] Address: [address] [place] [address] Performed By: #### B MP #### [place] [phone] CO2 [Moles/Vol] 26 mmol/L Normal 22-30 [facility] Comment on above: Order Comment: Speci men Type: BLOOD SPECIMENOrdering Facility: [facility] Address: [address] [place] [address] Performed By: #### B MP #### [phone] Creatinine [Mass/Vol] 0.68 mg/dL Normal 0.58-0.96 [facility] Comment on above: Order Comment: Speci men Type: BLOOD SPECIMENOrdering Facility: [facility] Address: [address] [place] [phone] Performed By: #### B MP #### [facility] [address] [place] [address] ESTIMATED GLOMERULAR FILTRATION RATE 107 mL/min/1.73m??? Normal >=60 [facility] Comment on above: Order Comment: Leanne terry Type: BLOOD SPECIMENOrdering Facility: [facility] Address: [address] Result Comment: Mary mated Glomerular Filtration [...] GFR. Performed By: #### B MP #### [place] [id number] [place] [address] Glucose [Mass/Vol] 99 mg/dL Normal 74-99 [facility] Comment on above: Order Comment: Leanne terry Type: BLOOD SPECIMENOrdering Facility: [facility] Address: [address] [place] [address] Result Comment: The [place] Diabetes [employer] (ADA) provides guidance for cutoff [...] Standards of Medical Care in Diabetes 2016, [place] [employer]. Diabetes Care. 2016.39(Suppl 1). Performed By: #### B MP #### [facility] [address] [place] [address] Potassium [Moles/Vol] 3.7 mmol/L Normal 3.7-5.1 [facility] Comment on above: Order Comment: Speci men Type: BLOOD SPECIMENOrdering Facility: [facility] Address: [address] [place] [address] Performed By: #### B MP #### [place] [phone] Sodium [Moles/Vol] 141 mmol/L Normal 136-144 [facility] Comment on above: Order Comment: Speci men Type: BLOOD SPECIMENOrdering Facility: [facility] Address: [address] [place] [address] Performed By: #### B MP #### [phone] Urea nitrogen [Mass/Vol] 4 mg/dL Low 7-21 [facility] Comment on above: Order Comment: Speci men Type: BLOOD SPECIMENOrdering Facility: [facility] Address: [address] [place] [address] Performed By: #### B MP #### [place] [phone] CBC panel Auto (Bld)on 04-01 Erythrocyte distribution width (RBC) [Ratio] 12.4 % Normal 11.5-15.0 [facility] Comment on above: Order Comment: Speci men Type: BLOOD SPECIMEN Ordering Facility: [facility] Address: [address] [place] [address] Performed By: #### 5 8410-2 #### [facility] CLIA [id number] [address] [place] [address] [place] Hematocrit (Bld) [Volume fraction] 29.3 % Low 36.0-46.0 [facility] Comment on above: Order Comment: Speci men Type: BLOOD SPECIMEN Ordering Facility: [facility] Address: [address] [place] [address] Performed By: #### 5 8410-2 #### [facility] CLIA [id number] [address] [place] [address] [place] Hemoglobin (Bld) [Mass/Vol] 9.6 g/dL Low 11.5-15.5 [facility] Comment on above: Order Comment: Speci men Type: BLOOD SPECIMEN Ordering Facility: [facility] Address: [address] [place] [address] Performed By: #### 5 8410-2 #### [facility] CLIA [id number] [address] [place] [address] MCH (RBC) [Entitic mass] 29.4 pg Normal 26.0-34.0 [facility] Comment on above: Order Comment: Speci men Type: BLOOD SPECIMEN Ordering Facility: [facility] Address: [address] [place] [address] Performed By: #### 5 8410-2 #### [facility] CLIA [id number] [address] [place] [address] [place] MCHC (RBC) [Mass/Vol] 32.8 g/dL Normal 30.5-36.0 [facility] Comment on above: Order Comment: Speci men Type: BLOOD SPECIMEN Ordering Facility: [facility] Address: [address] [place] [address] Performed By: #### 5 8410-2 #### [facility] CLIA [id number] [address] [place] [address] [place] MCV (RBC) [Entitic vol] 89.9 fL Normal 80.0-100.0 [facility] Comment on above: Order Comment: Speci men Type: BLOOD SPECIMEN Ordering Facility: [facility] Address: [address] [place] [address] Performed By: #### 5 8410-2 #### [facility] CLIA [id number] [address] [place] [address] [place] Nucleated RBC (Bld) [#/Vol] 10*3/uL Normal <0.01 [facility] Comment on above: Order Comment: Speci men Type: BLOOD SPECIMEN Ordering Facility: [facility] Address: [address] [place] [address] Performed By: #### 5 8410-2 #### [facility] CLIA [id number] [address] [place] [address] [place] Platelet mean volume (Bld) [Entitic vol] 8.9 fL Low 9.0-12.7 [facility] Comment on above: Order Comment: Speci men Type: BLOOD SPECIMEN Ordering Facility: [facility] Address: [address] [place] [address] Performed By: #### 5 8410-2 #### [facility] CLIA [id number] [address] [place] [address] [place] Platelets (Bld) [#/Vol] 282 10*3/uL Normal 150-400 [facility] Comment on above: Order Comment: Speci men Type: BLOOD SPECIMEN Ordering Facility: [facility] Address: [address] [place] [address] Performed By: #### 5 8410-2 #### [facility] CLIA [id number] [address] [place] [address] [place] RBC (Bld) [#/Vol] 3.26 10*6/uL Low 3.90-5.20 [facility] Comment on above: Order Comment: Speci men Type: BLOOD SPECIMEN Ordering Facility: [facility] Address: [address] [place] [address] Performed By: #### 5 8410-2 #### [facility] CLIA [id number] [address] [place] [address] [place] WBC (Bld) [#/Vol] 7.39 10*3/uL Normal 3.70-11.00 [facility] Comment on above: Order Comment: Speci men Type: BLOOD SPECIMEN Ordering Facility: [facility] Address: [address] [place] [address] Performed By: #### 5 8410-2 #### [facility] CLIA [id number] [address] [place] [address] [place] CONSULT PROGon 04-01-2022 CONSULT PROG HNO ID: [id number] Author: Joslyn Jain APRN.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 Service: Pain Management Author Type: Nurse Practitioner [...] 0.67 Sod (more content not included)... Normal [facility] Magnesium SerPl-mCncon 04-01 Magnesium [Mass/Vol] 1.7 mg/dL Normal 1.7-2.3 [facility] Comment on above: Order Comment: Speci men Type: BLOOD SPECIMENOrdering Facility: [facility] Address: [address] [place], [place] [phone] Performed By: #### B #### [place] [address] NURSING PROGon 04-01-2022 NURSING PROG HNO ID: [id number] Author: Eagle Gu RN Service: ? Author Type: Registered Nurse Type: Nursing Progress Note Filed: 04/01/2022 9:56 PM Note Text: Nursing Progress Note Patient Name: Mary Leal Patient Location: / Daily Note:04/01/222038 Pt is alert and oriented x3. Surgical sites intact. Tap blocks x2 intact. Made SROC aware of Pt experiencing sharp/stabbing pain in abdomen, rating 9/10. SROC recommended use of PRN Dilaudid This note was completed by: [facility] NURSING PROG HNO ID: [id number] Author: Eagle Gu, RN Service: ? Author Type: Registered Nurse Type: Nursing Progress Note Filed: 04/01/2022 1:52 AM Note Text: Nursing Progress Note Patient Name: Mary Leal Patient Location: [address]/QO4B-21 Daily Note:03/31/222030 Pt is alert and oriented x3. Surgical sites intact. Nerve blocks x2 intact. This note was completed by: [facility] Phosphate SerPl-mCncon 04-01 Phosphate [Mass/Vol] 2.8 mg/dL Normal 2.7-4.8 [facility] Comment on above: Order Comment: Speci men Type: BLOOD SPECIMENOrdering Facility: [facility] Address: [address] [place] [address] Performed By: #### B MP #### [place] [address] Basic metabolic 2000 panelon 03-31-2022 Anion gap [Moles/Vol] 10 mmol/L Normal 9-18 [facility] Comment on above: Order Comment: Speci men Type: BLOOD SPECIMEN Ordering Facility: [facility] Address: [address] [place] [address] Performed By: #### 5 8410-2 #### [facility] CLIA [id number] [address] [place] [address] [place] Calcium [Mass/Vol] 8.4 mg/dL Low 8.5-10.2 [facility] Comment on above: Order Comment: Speci men Type: BLOOD SPECIMEN Ordering Facility: [facility] Address: [address] [place] [address] Performed By: #### 5 8410-2 #### [facility] CLIA [id number] [address] [place] [address] [place] Chloride [Moles/Vol] 107 mmol/L High 97-105 [facility] Comment on above: Order Comment: Speci men Type: BLOOD SPECIMEN Ordering Facility: [facility] Address: [address] [place] [address] Performed By: #### 5 8410-2 #### [facility] CLIA [id number] [address] [place] [address] [place] CO2 [Moles/Vol] 23 mmol/L Normal 22-30 [facility] Comment on above: Order Comment: Speci men Type: BLOOD SPECIMEN Ordering Facility: [facility] Address: [address] [place] [address] Performed By: #### 5 8410-2 #### [facility] CLIA [id number] [address] [place] [address] [place] Creatinine [Mass/Vol] 0.67 mg/dL Normal 0.58-0.96 [facility] Comment on above: Order Comment: Speci men Type: BLOOD SPECIMEN Ordering Facility: [facility] Address: [address] [place] [address] Performed By: #### 5 8410-2 #### [facility] CLIA [id number] [address] [place] [address] [place] ESTIMATED GLOMERULAR FILTRATION RATE 107 mL/min/1.73m??? Normal >=60 [facility] Comment on above: Order Comment: Speci men Type: BLOOD SPECIMEN Ordering Facility: [facility] Address: [address] [place] [address] Result Comment: Mary mated Glomerular Filtration Rate [...] GFR. Performed By: #### 5 8410-2 #### [facility] CLIA [id number] [address] [place] [address] [place] Glucose [Mass/Vol] 84 mg/dL Normal 74-99 [facility] Comment on above: Order Comment: Leanne terry Type: BLOOD SPECIMEN Ordering Facility: [facility] Address: [address] [place] [address] Result Comment: The [place] Diabetes Association (ADA) provides guidance for cutoff [...] Standards of Medical Care in Diabetes 2016, [place] [employer]. Diabetes Care. 2016.39(Suppl 1). Performed By: #### 5 8410-2 #### [facility] CLIA [id number] [address] [place] [address] [place] Potassium [Moles/Vol] 3.8 mmol/L Normal 3.7-5.1 [facility] Comment on above: Order Comment: Leanne terry Type: BLOOD SPECIMEN Ordering Facility: [facility] Address: [address] [place] [id number] Performed By: #### 5 8410-2 #### [facility] CLIA [id number] [address] [place] [id number] [place] Sodium [Moles/Vol] 140 mmol/L Normal 136-144 [facility] Comment on above: Order Comment: Speci men Type: BLOOD SPECIMEN Ordering Facility: [facility] Address: [address] [place] [address] Performed By: #### 5 8410-2 #### [facility] CLIA [id number] [address] [place] [address] [place] Urea nitrogen [Mass/Vol] 11 mg/dL Normal 7-21 [facility] Comment on above: Order Comment: Speci men Type: BLOOD SPECIMEN Ordering Facility: [facility] Address: [address] [place] [address] Performed By: #### 5 8410-2 #### [facility] CLIA [id number] [address] [place] [address] [place] CBC W Auto Differential pane l (Bld)on 03-31-2022 Basophils (Bld) [#/Vol] 0.03 10*3/uL Normal <0.11 [facility] Comment on above: Order Comment: Speci men Type: BLOOD SPECIMEN Ordering Facility: [facility] Address: [address] [place] [address] Performed By: #### 5 7021-8 #### [facility] CLIA [id number] [address] [place] [address] [place] Basophils/100 WBC (Bld) 0.4 % Normal [facility] Comment on above: Order Comment: Speci men Type: BLOOD SPECIMEN Ordering Facility: [facility] Address: [address] [place] [address] Performed By: #### 5 7021-8 #### [facility] CLIA [id number] [address] [place] [address] [place] Differential cell count method Nom (Bld) Auto Normal [facility] Comment on above: Order Comment: Speci men Type: BLOOD SPECIMEN Ordering Facility: [facility] Address: [address] [place] [address] Performed By: #### 5 7021-8 #### [facility] CLIA [id number] [address] [place] [address] [place] Eosinophils (Bld) [#/Vol] 0.38 10*3/uL Normal <0.46 [facility] Comment on above: Order Comment: Speci men Type: BLOOD SPECIMEN Ordering Facility: [facility] Address: [address] [place] [address] Performed By: #### 5 7021-8 #### [facility] CLIA [id number] [address] [place] [address] [place] Eosinophils/100 WBC (Bld) 4.4 % Normal [facility] Comment on above: Order Comment: Speci men Type: BLOOD SPECIMEN Ordering Facility: [facility] Address: [address] [place] [address] Performed By: #### 5 7021-8 #### [facility] CLIA [id number] [address] [place] [address] [place] Erythrocyte distribution width (RBC) [Ratio] 12.6 % Normal 11.5-15.0 [facility] Comment on above: Order Comment: Speci men Type: BLOOD SPECIMEN Ordering Facility: [facility] Address: [address] [place] [address] Performed By: #### 5 7021-8 #### [facility] CLIA [id number] [address] [place] [address] [place] Hematocrit (Bld) [Volume fraction] 30.0 % Low 36.0-46.0 [facility] Comment on above: Order Comment: Speci men Type: BLOOD SPECIMEN Ordering Facility: [facility] Address: [address] [place] [address] Performed By: #### 5 7021-8 #### [facility] CLIA [id number] [address] [place] [address] [place] Hemoglobin (Bld) [Mass/Vol] 9.9 g/dL Low 11.5-15.5 [facility] Comment on above: Order Comment: Speci men Type: BLOOD SPECIMEN Ordering Facility: [facility] Address: [address] [place] [address] Performed By: #### 5 7021-8 #### [facility] CLIA [id number] [address] [place] [address] IMMATURE GRAN % 0.4 % Normal [facility] Comment on above: Order Comment: Speci men Type: BLOOD SPECIMEN Ordering Facility: [facility] Address: [address] [place] [address] Performed By: #### 5 7021-8 #### [facility] CLIA [id number] [address] [place] [address] [place] IMMATURE GRAN ABS 0.03 k/uL Normal <0.10 [facility] Comment on above: Order Comment: Speci men Type: BLOOD SPECIMEN Ordering Facility: [facility] Address: [address] [place] [address] Performed By: #### 5 7021-8 #### [facility] CLIA [id number] [address] [place] [address] [place] Lymphocytes (Bld) [#/Vol] 1.24 10*3/uL Normal 1.00-4.00 [facility] Comment on above: Order Comment: Speci men Type: BLOOD SPECIMEN Ordering Facility: [facility] Address: [address] [place] [address] Performed By: #### 5 7021-8 #### [facility] CLIA [id number] [address] [place] [address] [place] Lymphocytes/100 WBC (Bld) 14.5 % Normal [facility] Comment on above: Order Comment: Speci men Type: BLOOD SPECIMEN Ordering Facility: [facility] Address: [address] [place] [address] Performed By: #### 5 7021-8 #### [facility] CLIA [id number] [address] [place] [address] [place] MCH (RBC) [Entitic mass] 29.6 pg Normal 26.0-34.0 [facility] Comment on above: Order Comment: Speci men Type: BLOOD SPECIMEN Ordering Facility: [facility] Address: [address] [place] [address] Performed By: #### 5 7021-8 #### [facility] CLIA [id number] [address] [place] [address] [place] MCHC (RBC) [Mass/Vol] 33.0 g/dL Normal 30.5-36.0 [facility] Comment on above: Order Comment: Speci men Type: BLOOD SPECIMEN Ordering Facility: [facility] Address: [address] [place] [address] Performed By: #### 5 7021-8 #### [facility] CLIA [id number] [address] [place] [address] [place] MCV (RBC) [Entitic vol] 89.8 fL Normal 80.0-100.0 [facility] Comment on above: Order Comment: Speci men Type: BLOOD SPECIMEN Ordering Facility: [facility] Address: [address] [place] [address] Performed By: #### 5 7021-8 #### [facility] CLIA [id number] [address] [place] [address] [place] Monocytes (Bld) [#/Vol] 0.48 10*3/uL Normal <0.87 [facility] Comment on above: Order Comment: Speci men Type: BLOOD SPECIMEN Ordering Facility: [facility] Address: [address] [place] [address] Performed By: #### 5 7021-8 #### [facility] CLIA [id number] [address] [place] [address] [place] Monocytes/100 WBC (Bld) 5.6 % Normal [facility] Comment on above: Order Comment: Speci men Type: BLOOD SPECIMEN Ordering Facility: [facility] Address: [address] [place] [address] Performed By: #### 5 7021-8 #### [facility] CLIA [id number] [address] [place] [address] [place] Neutrophils (Bld) [#/Vol] 6.41 10*3/uL Normal 1.45-7.50 [facility] Comment on above: Order Comment: Speci men Type: BLOOD SPECIMEN Ordering Facility: [facility] Address: [address] [place], [place] [id number] Performed By: #### 5 7021-8 #### [facility] CLIA [id number] [address] [place] [address] [place] Neutrophils/100 WBC (Bld) 74.7 % Normal [facility] Comment on above: Order Comment: Speci men Type: BLOOD SPECIMEN Ordering Facility: [facility] Address: [address] [place] [address] Performed By: #### 5 7021-8 #### [facility] CLIA [id number] [address] [place] [address] [place] Nucleated RBC (Bld) [#/Vol] 10*3/uL Normal <0.01 [facility] Comment on above: Order Comment: Speci men Type: BLOOD SPECIMEN Ordering Facility: [facility] Address: [address] [place] [address] Performed By: #### 5 7021-8 #### [facility] CLIA [id number] [address] [place] [address] [place] Nucleated RBC/100 WBC (Bld) [Ratio] 0.0 /100 WBC Normal [facility] Comment on above: Order Comment: Speci men Type: BLOOD SPECIMEN Ordering Facility: [facility] Address: [address] [place] [address] Performed By: #### 5 7021-8 #### [facility] CLIA [id number] [address] [place] [address] [place] Platelet mean volume (Bld) [Entitic vol] 9.0 fL Normal 9.0-12.7 [facility] Comment on above: Order Comment: Speci men Type: BLOOD SPECIMEN Ordering Facility: [facility] Address: [address] [place] [address] Performed By: #### 5 7021-8 #### [facility] CLIA [id number] [address] [place] [address] [place] Platelets (Bld) [#/Vol] 246 10*3/uL Normal 150-400 [facility] Comment on above: Order Comment: Speci men Type: BLOOD SPECIMEN Ordering Facility: [facility] Address: [address] [place] [address] Performed By: #### 5 7021-8 #### [facility] CLIA [id number] [address] OF [facility] RBC (Bld) [#/Vol] 3.34 10*6/uL Low 3.90-5.20 [facility] Comment on above: Order Comment: Speci men Type: BLOOD SPECIMEN Ordering Facility: [facility] Address: [address] [place] [address] Performed By: #### 5 7021-8 #### [facility] CLIA [id number] [address] [place] [address] OF [place] WBC (Bld) [#/Vol] 8.57 10*3/uL Normal 3.70-11.00 [facility] Comment on above: Order Comment: Speci men Type: BLOOD SPECIMEN Ordering Facility: [facility] Address: [address] [place] [address] Performed By: #### 5 7021-8 #### [facility] CLIA [id number] [address] [place] [address] CONSULT PROGon 03-31-2022 CONSULT PROG HNO ID: [id number] Author: Joslyn Jain APRN.CNP Service: Pain Management [...] PLAN/Recs: 1. Continue TAPS X 2 to 0//30/2 each, will likely remove it on Monday [...] AND U (more content not included)... Normal [facility] Magnesium SerPl-mCncon 03-31 Magnesium [Mass/Vol] 1.6 mg/dL Low 1.7-2.3 [facility] Comment on above: Order Comment: Speci men Type: BLOOD SPECIMEN Ordering Facility: [facility] Address: [address] [place] [address] Performed By: #### 5 8410-2 #### [facility] CLIA [id number] [place] [address] NURSING PROGon 03-31-2022 NURSING PROG HNO ID: [id number] Author: Daisy Amaya RN Service: Nursing Author Type: Registered Nurse Type: Nursing Progress Note Filed: 03/31/2022 4:56 PM Note Text: Nursing Progress Note Patient Name: Mary Leal Patient Location: [place] [address] Daily Note: 0931- Pt A+Ox3. Up with standby assist. Ambulated pod multiple times. Laps intact. Old ostomy site WNL. Pt having liquid brown BMs. Voiding adq. No nausea, cp, or sob. Taps infusing per JAN. Pain controlled with PRN oxy. No further needs at this time. This note was completed by: Daisy Amaya [facility] NURSING PROG HNO ID: [id number] Author: Mariluz Carnes RN Service: Nursing Author Type: Registered Nurse Type: Nursing Progress Note Filed: 03/30/2022 11:47 PM Note Text: Nursing Progress Note Patient Name: Mary Leal Patient Location: [facility]/ Daily Note: Pt's BP 90/52. Patient asymptomatic. Surgery made aware. Order in for Bolus LR 500CC's. This note was completed by: Mariluz Carnes [facility] Phosphate SerPl-mCncon 03-31 Phosphate [Mass/Vol] 2.7 mg/dL Normal 2.7-4.8 [facility] Comment on above: Order Comment: Speci men Type: BLOOD SPECIMEN Ordering Facility: [facility] Address: [address] [place] [address] Performed By: #### 5 8410-2 #### [facility] CLIA [id number] [address] [place] [address] [place] Basic metabolic 2000 panelon 03-30-2022 Anion gap [Moles/Vol] 10 mmol/L Normal 9-18 [facility] Comment on above: Order Comment: Speci men Type: BLOOD SPECIMEN Ordering Facility: [facility] Address: [address] [place] [address] Performed By: #### 1 9123-9, 2777-1, 98459-4 #### [facility] CLIA [id number] [place] [address] [place] Calcium [Mass/Vol] 8.5 mg/dL Normal 8.5-10.2 [facility] Comment on above: Order Comment: Speci men Type: BLOOD SPECIMEN Ordering Facility: [facility] Address: [address] [place] [address] Performed By: #### 1 9123-9, 2777-1, 17861-9 #### [facility] CLIA [id number] [address] [place] [address] [place] Chloride [Moles/Vol] 103 mmol/L Normal 97-105 [facility] Comment on above: Order Comment: Speci men Type: BLOOD SPECIMEN Ordering Facility: [facility] Address: [address] [place] [address] Performed By: #### 1 9123-9, 2777-1, 48327-3 #### [facility] CLIA [id number] [address] [place] [address] [place] CO2 [Moles/Vol] 24 mmol/L Normal 22-30 [facility] Comment on above: Order Comment: Speci men Type: BLOOD SPECIMEN Ordering Facility: [facility] Address: [address] [place] [address] Performed By: #### 1 9123-9, 2777-1, 30918-1 #### [facility] CLIA [id number] [address] [place] [address] [place] Creatinine [Mass/Vol] 0.69 mg/dL Normal 0.58-0.96 [facility] Comment on above: Order Comment: Speci men Type: BLOOD SPECIMEN Ordering Facility: [facility] Address: [address] [place] [address] Performed By: #### 1 9123-9, 2777-1, 98979-9 #### [facility] CLIA [id number] [address] [place] [address] [place] ESTIMATED GLOMERULAR FILTRATION RATE 107 mL/min/1.73m??? Normal >=60 [facility] Comment on above: Order Comment: Speci men Type: BLOOD SPECIMEN Ordering Facility: [facility] Address: [address] [place] [address] Result Comment: Mary mated Glomerular Filtration Rate [...] GFR. Performed By: #### 1 9123-9, 2777-1, 66558-2 #### [facility] CLIA [id number] [place] [address] [place] Glucose [Mass/Vol] 117 mg/dL High 74-99 [facility] Comment on above: Order Comment: Leanne terry Type: BLOOD SPECIMEN Ordering Facility: [facility] Address: [address] [place], [place] [id number] Result Comment: The [place] [employer] (ADA) provides guidance for cutoff [...] Standards of Medical Care in Diabetes 2016, [place] [employer]. Diabetes Care. 2016.39(Suppl 1). Performed By: #### 1 9123-9, 2777-, 81992-4 #### [facility] CLIA [id number] [place] [address] [place] Potassium [Moles/Vol] 3.9 mmol/L Normal 3.7-5.1 [facility] Comment on above: Order Comment: Leanne terry Type: BLOOD SPECIMEN Ordering Facility: [facility] Address: [address] [place] [address] Performed By: #### 1 9123-9, 2777-, 92861-2 #### [facility] CLIA [id number] [place] [address] [place] Sodium [Moles/Vol] 137 mmol/L Normal 136-144 [facility] Comment on above: Order Comment: Leanne terry Type: BLOOD SPECIMEN Ordering Facility: [facility] Address: [address] [place] [address] Performed By: #### 1 9123-9, 2777-1, 73098-8 #### [facility] CLIA [id number] [address] [place] [address] STATES [facility] Urea nitrogen [Mass/Vol] 13 mg/dL Normal 7-21 [facility] Comment on above: Order Comment: Speci men Type: BLOOD SPECIMEN Ordering Facility: [facility] Address: [address] [place] [address] Performed By: #### 1 9123-9, 2777, 47060-7 #### [facility] CLIA [id number] [address] [place] [address] CBC panel Auto (Bld)on 03-30 Erythrocyte distribution width (RBC) [Ratio] 12.8 % Normal 11.5-15.0 [facility] Comment on above: Order Comment: Speci men Type: BLOOD SPECIMEN Ordering Facility: [facility] Address: [address] [place] [address] Performed By: #### 5 8410-2 #### [facility] CLIA [id number] [address] [place] [address] Hematocrit (Bld) [Volume fraction] 35.0 % Low 36.0-46.0 [facility] Comment on above: Order Comment: Speci men Type: BLOOD SPECIMEN Ordering Facility: [facility] Address: [address] [place] [address] Performed By: #### 5 8410-2 #### [facility] CLIA [id number] [address] [place] [address] [place] Hemoglobin (Bld) [Mass/Vol] 11.8 g/dL Normal 11.5-15.5 [facility] Comment on above: Order Comment: Speci men Type: BLOOD SPECIMEN Ordering Facility: [facility] Address: [address] [place] [address] Performed By: #### 5 8410-2 #### [facility] CLIA [id number] [address] [place] [address] [place] MCH (RBC) [Entitic mass] 30.6 pg Normal 26.0-34.0 [facility] Comment on above: Order Comment: Speci men Type: BLOOD SPECIMEN Ordering Facility: [facility] Address: [address] [place] [address] Performed By: #### 5 8410-2 #### [facility] CLIA [id number] [address] [place] [address] [place] MCHC (RBC) [Mass/Vol] 33.7 g/dL Normal 30.5-36.0 [facility] Comment on above: Order Comment: Speci men Type: BLOOD SPECIMEN Ordering Facility: [facility] Address: [address] [place] [address] Performed By: #### 5 8410-2 #### [facility] CLIA [id number] [address] [place] [address] MCV (RBC) [Entitic vol] 90.7 fL Normal 80.0-100.0 [facility] Comment on above: Order Comment: Speci men Type: BLOOD SPECIMEN Ordering Facility: [facility] Address: [address] [place] [address] Performed By: #### 5 8410-2 #### [facility] CLIA [id number] [address] [place] [address] OF [place] Nucleated RBC (Bld) [#/Vol] 10*3/uL Normal <0.01 [facility] Comment on above: Order Comment: Speci men Type: BLOOD SPECIMEN Ordering Facility: [facility] Address: [address] [place] [address] Performed By: #### 5 8410-2 #### [facility] CLIA [id number] [address] [place] [address] [place] Platelet mean volume (Bld) [Entitic vol] 8.9 fL Low 9.0-12.7 [facility] Comment on above: Order Comment: Speci men Type: BLOOD SPECIMEN Ordering Facility: [facility] Address: [address] [place] [address] Performed By: #### 5 8410-2 #### [facility] CLIA [id number] [address] [place] [address] [place] Platelets (Bld) [#/Vol] 293 10*3/uL Normal 150-400 [facility] Comment on above: Order Comment: Speci men Type: BLOOD SPECIMEN Ordering Facility: [facility] Address: [address] [place] [address] Performed By: #### 5 8410-2 #### [facility] CLIA [id number] [address] [place] [address] [place] RBC (Bld) [#/Vol] 3.86 10*6/uL Low 3.90-5.20 [facility] Comment on above: Order Comment: Speci men Type: BLOOD SPECIMEN Ordering Facility: [facility] Address: [address] [place] [address] Performed By: #### 5 8410-2 #### [facility] CLIA [id number] [address] [place] [address] [place] WBC (Bld) [#/Vol] 11.25 10*3/uL High 3.70-11.00 [facility] Comment on above: Order Comment: Speci men Type: BLOOD SPECIMEN Ordering Facility: [facility] Address: [address] [place] [address] Performed By: #### 5 8410-2 #### [facility] CLIA [id number] [address] [place] [address] OF [place] CONSULT PROGon 03-30-2022 CONSULT PROG HNO ID: [id number] Author: Joslyn Jain APRN.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 Service: Pain Management Author Type: Nurse Practitioner [...] eGFR >= (more content not included)... Normal [facility] Magnesium SerPl-mCncon 03-30 Magnesium [Mass/Vol] 1.6 mg/dL Low 1.7-2.3 [facility] Comment on above: Order Comment: Speci men Type: BLOOD SPECIMEN Ordering Facility: [facility] Address: [address] [place] [address] Performed By: #### 1 9123-9, 2777-1, 75042-0 #### [facility] CLIA [id number] [address] [place] [address] [place] Phosphate SerPl-mCncon 03-30 Phosphate [Mass/Vol] 2.9 mg/dL Normal 2.7-4.8 [facility] Comment on above: Order Comment: Speci harrison Type: BLOOD SPECIMEN Ordering Facility: [facility] Address: [address] [place] [address] Performed By: #### 1 9123-9, 2777-1, 40801-4 #### [facility] CLIA [id number] [address] [place] [address] [place] ANES POSTPROC EVALon 022 ANES POSTPROC EVAL HNO ID: [id number] Author: Nathanael Craig DO Service: Anesthesiology Author Type: Anesthesiologist Type: Anesthesia Postprocedure Evaluation Filed: 03/29/2022 8:29 AM Note Text: POST ANESTHESIA EVALUATION NOTE : 1970 Procedure Summary Date: 03/28/22 Room / Location: OR / OR Anesthesia Start: 907 Anesthesia Stop: 1630 Procedures: LAPAROSCOPIC TOTAL COLECTOMY LITHOTOMY (N/A Abdomen) [...] March 29, 2022 TIME: 8:29 AM CSN: [id number] Normal [facility] Basic metabolic 2000 panelon 03-29-2022 Anion gap [Moles/Vol] 9 mmol/L Normal 9-18 [facility] Comment on above: Order Comment: Speci men Type: BLOOD SPECIMEN Ordering Facility: [facility] Address: [address] [place] [address] Performed By: #### 5 8410-2 #### [facility] CLIA [id number] [address] [place] [address] [place] Calcium [Mass/Vol] 7.9 mg/dL Low 8.5-10.2 [facility] Comment on above: Order Comment: Speci men Type: BLOOD SPECIMEN Ordering Facility: [facility] Address: [address] [place] [address] Performed By: #### 5 8410-2 #### [facility] CLIA [id number] [address] [place] [address] [place] Chloride [Moles/Vol] 105 mmol/L Normal 97-105 [facility] Comment on above: Order Comment: Speci men Type: BLOOD SPECIMEN Ordering Facility: [facility] Address: [address] [place] [address] Performed By: #### 5 8410-2 #### [facility] CLIA [id number] [address] [place] [address] [place] CO2 [Moles/Vol] 24 mmol/L Normal 22-30 [facility] Comment on above: Order Comment: Speci men Type: BLOOD SPECIMEN Ordering Facility: [facility] Address: [address] [place] [address] Performed By: #### 5 8410-2 #### [facility] CLIA [id number] [address] [place] [address] [place] Creatinine [Mass/Vol] 0.70 mg/dL Normal 0.58-0.96 [facility] Comment on above: Order Comment: Speci men Type: BLOOD SPECIMEN Ordering Facility: [facility] Address: [address] [place] [address] Performed By: #### 5 8410-2 #### [facility] CLIA [id number] [address] [place] [address] [place] ESTIMATED GLOMERULAR FILTRATION RATE 106 mL/min/1.73m??? Normal >=60 [facility] Comment on above: Order Comment: Speci men Type: BLOOD SPECIMEN Ordering Facility: [facility] Address: [address] [place] [address] Result Comment: Mary mated Glomerular Filtration Rate [...] #### 5 8410-2 #### [facility] CLIA [id number] [address] [place] [address] [place] Glucose [Mass/Vol] 92 mg/dL Normal 74-99 [facility] Comment on above: Order Comment: Leanne terry Type: BLOOD SPECIMEN Ordering Facility: [facility] Address: [address] [place] [address] Result Comment: The [place] Diabetes Association (ADA) provides guidance for cutoff [...] Standards of Medical Care in Diabetes 2016, [place] [employer]. Diabetes Care. 2016.39(Suppl 1). Performed By: #### 5 8410-2 #### [facility] CLIA [id number] [address] [place] [address] [place] Potassium [Moles/Vol] 4.1 mmol/L Normal 3.7-5.1 [facility] Comment on above: Order Comment: Leanne terry Type: BLOOD SPECIMEN Ordering Facility: [facility] Address: [address] [place] [address] Performed By: #### 5 8410-2 #### [facility] CLIA [id number] [address] [place] [address] [place] Sodium [Moles/Vol] 138 mmol/L Normal 136-144 [facility] Comment on above: Order Comment: Leanne terry Type: BLOOD SPECIMEN Ordering Facility: [facility] Address: [address] [place] [address] Performed By: #### 5 8410-2 #### [facility] CLIA [id number] [address] [place] [address] [place] [facility] Urea nitrogen [Mass/Vol] 12 mg/dL Normal 7- [facility] Comment on above: Order Comment: Speci men Type: BLOOD SPECIMEN Ordering Facility: [facility] Address: [address] [place] [address] Performed By: #### 5 8410-2 #### [facility] CLIA [id number] [address] [place] [address] [place] CBC W Auto Differential pane l (Bld)on 03-29-2022 Basophils (Bld) [#/Vol] 0.04 10*3/uL Normal <0.11 [facility] Comment on above: Order Comment: Speci men Type: BLOOD SPECIMEN Ordering Facility: [facility] Address: [address] [place] [address] Performed By: #### 5 7021-8 #### [facility] CLIA [id number] [address] [place] [address] [place] Basophils/100 WBC (Bld) 0.6 % Normal [facility] Comment on above: Order Comment: Speci men Type: BLOOD SPECIMEN Ordering Facility: [facility] Address: [address] [place] [address] Performed By: #### 5 7021-8 #### [facility] CLIA [id number] [address] [place] [address] [place] Differential cell count method Nom (Bld) Auto Normal [facility] Comment on above: Order Comment: Speci men Type: BLOOD SPECIMEN Ordering Facility: [facility] Address: [address] [place] [address] Performed By: #### 5 7021-8 #### [facility] CLIA [id number] [address] [place] [address] [place] Eosinophils (Bld) [#/Vol] 0.16 10*3/uL Normal <0.46 [facility] Comment on above: Order Comment: Speci men Type: BLOOD SPECIMEN Ordering Facility: [facility] Address: [address] [place] [address] Performed By: #### 5 7021-8 #### [facility] CLIA [id number] [address] [place] [address] [place] Eosinophils/100 WBC (Bld) 2.3 % Normal [facility] Comment on above: Order Comment: Speci men Type: BLOOD SPECIMEN Ordering Facility: [facility] Address: [address] [place] [address] Performed By: #### 5 7021-8 #### [facility] CLIA [id number] [address] [place] [address] [place] Erythrocyte distribution width (RBC) [Ratio] 12.8 % Normal 11.5-15.0 [facility] Comment on above: Order Comment: Speci men Type: BLOOD SPECIMEN Ordering Facility: [facility] Address: [address] [place] [address] Performed By: #### 5 7021-8 #### [facility] CLIA [id number] [address] [place] [address] [place] Hematocrit (Bld) [Volume fraction] 32.3 % Low 36.0-46.0 [facility] Comment on above: Order Comment: Speci men Type: BLOOD SPECIMEN Ordering Facility: [facility] Address: [address] [place] [address] Performed By: #### 5 7021-8 #### [facility] CLIA [id number] [address] [place] [address] [place] Hemoglobin (Bld) [Mass/Vol] 10.7 g/dL Low 11.5-15.5 [facility] Comment on above: Order Comment: Speci men Type: BLOOD SPECIMEN Ordering Facility: [facility] Address: [address] [place] [address] Performed By: #### 5 7021-8 #### [facility] CLIA [id number] [address] [place] [address] [place] IMMATURE GRAN % 0.3 % Normal [facility] Comment on above: Order Comment: Speci men Type: BLOOD SPECIMEN Ordering Facility: [facility] Address: [address] [place] [address] Performed By: #### 5 7021-8 #### [facility] CLIA [id number] [address] [place] [address] [place] IMMATURE GRAN ABS <0.03 Normal <0.10 [facility] Comment on above: Order Comment: Speci men Type: BLOOD SPECIMEN Ordering Facility: [facility] Address: [address] [place] [address] Performed By: #### 5 7021-8 #### [facility] CLIA [id number] [address] [place] [address] Lymphocytes (Bld) [#/Vol] 1.39 10*3/uL Normal 1.00-4.00 [facility] Comment on above: Order Comment: Speci men Type: BLOOD SPECIMEN Ordering Facility: [facility] Address: [address] [place] [address] Performed By: #### 5 7021-8 #### [facility] CLIA [id number] [address] [place] [address] Lymphocytes/100 WBC (Bld) 19.7 % Normal [facility] Comment on above: Order Comment: Speci men Type: BLOOD SPECIMEN Ordering Facility: [facility] Address: [address] [place] [address] Performed By: #### 5 7021-8 #### [facility] CLIA [id number] [address] [place] [address] STATES [facility] MCH (RBC) [Entitic mass] 29.8 pg Normal 26.0-34.0 [facility] Comment on above: Order Comment: Speci men Type: BLOOD SPECIMEN Ordering Facility: [facility] Address: [address] [place] [address] Performed By: #### 5 7021-8 #### [facility] CLIA [id number] [address] [place] [address] MCHC (RBC) [Mass/Vol] 33.1 g/dL Normal 30.5-36.0 [facility] Comment on above: Order Comment: Speci men Type: BLOOD SPECIMEN Ordering Facility: [facility] Address: [address] [place] [address] Performed By: #### 5 7021-8 #### [facility] CLIA [id number] [address] [place] [address] [place] MCV (RBC) [Entitic vol] 90.0 fL Normal 80.0-100.0 [facility] Comment on above: Order Comment: Speci men Type: BLOOD SPECIMEN Ordering Facility: [facility] Address: [address] [place] [address] Performed By: #### 5 7021-8 #### [facility] CLIA [id number] [address] [place] [address] [place] Monocytes (Bld) [#/Vol] 0.55 10*3/uL Normal <0.87 [facility] Comment on above: Order Comment: Speci men Type: BLOOD SPECIMEN Ordering Facility: [facility] Address: [address] [place] [address] Performed By: #### 5 7021-8 #### [facility] CLIA [id number] [address] [place] [address] [place] Monocytes/100 WBC (Bld) 7.8 % Normal [facility] Comment on above: Order Comment: Speci men Type: BLOOD SPECIMEN Ordering Facility: [facility] Address: [address] [place] [address] Performed By: #### 5 7021-8 #### [facility] CLIA [id number] [address] [place] [address] [place] Neutrophils (Bld) [#/Vol] 4.88 10*3/uL Normal 1.45-7.50 [facility] Comment on above: Order Comment: Speci men Type: BLOOD SPECIMEN Ordering Facility: [facility] Address: [address] [place] [address] Performed By: #### 5 7021-8 #### [facility] CLIA [id number] [place] [address] [place] Neutrophils/100 WBC (Bld) 69.3 % Normal [facility] Comment on above: Order Comment: Speci men Type: BLOOD SPECIMEN Ordering Facility: [facility] Address: [address] [place] [address] Performed By: #### 5 7021-8 #### [facility] CLIA [id number] [address] [place] [address] [place] Nucleated RBC (Bld) [#/Vol] 10*3/uL Normal <0.01 [facility] Comment on above: Order Comment: Speci men Type: BLOOD SPECIMEN Ordering Facility: [facility] Address: [address] [place] [address] Performed By: #### 5 7021-8 #### [facility] CLIA [id number] [address] [place] [address] [place] Nucleated RBC/100 WBC (Bld) [Ratio] 0.0 /100 WBC Normal [facility] Comment on above: Order Comment: Speci men Type: BLOOD SPECIMEN Ordering Facility: [facility] Address: [address] [place] [address] Performed By: #### 5 7021-8 #### [facility] CLIA [id number] [address] [place] [address] [place] Platelet mean volume (Bld) [Entitic vol] 9.0 fL Normal 9.0-12.7 [facility] Comment on above: Order Comment: Speci men Type: BLOOD SPECIMEN Ordering Facility: [facility] Address: [address] [place] [address] Performed By: #### 5 7021-8 #### [facility] CLIA [id number] [address] [place] [address] [place] Platelets (Bld) [#/Vol] 241 10*3/uL Normal 150-400 [facility] Comment on above: Order Comment: Speci men Type: BLOOD SPECIMEN Ordering Facility: [facility] Address: [address] [place] [address] Performed By: #### 5 7021-8 #### [facility] CLIA [id number] [address] [place] [address] [place] RBC (Bld) [#/Vol] 3.59 10*6/uL Low 3.90-5.20 [facility] Comment on above: Order Comment: Speci men Type: BLOOD SPECIMEN Ordering Facility: [facility] Address: [address] [place] [address] Performed By: #### 5 7021-8 #### [facility] CLIA [id number] [address] [place] [address] [place] WBC (Bld) [#/Vol] 7.04 10*3/uL Normal 3.70-11.00 [facility] Comment on above: Order Comment: Speci men Type: BLOOD SPECIMEN Ordering Facility: [facility] Address: [address] [place] [address] Performed By: #### 5 7021-8 #### [facility] CLIA [id number] [address] [place] [address] CONSULT PROGon 03-29-2022 CONSULT PROG HNO ID: [id number] Author: Joslyn Jain APRN.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 Service: Pain Management Author Type: Nurse Practitioner [...] is on liq diet, currently on Dilaudid FINISHING AND SHIPPING SUPERVISOR at 0/0.2/10/6 last 2 hours 06/27 bolus [...] No Relieved: Yes - NOW with increase FINISHING AND SHIPPING SUPERVISOR and Repositioning and FINISHING AND SHIPPING SUPERVISOR Is patient satisfied with pain control: Yes [...] mL PERIPHERAL NERVE CATHETER CONTINUOUS - HYDROmorphone FINISHING AND SHIPPING SUPERVISOR 0.5 mg/mL in NaCl 0.9% 100 mL [...] % 69.3 (more content not included)... Normal [facility] Magnesium SerPl-mCncon 03-29 Magnesium [Mass/Vol] 1.4 mg/dL Low 1.7-2.3 [facility] Comment on above: Order Comment: Speci men Type: BLOOD SPECIMEN Ordering Facility: [facility] Address: [address] [place] [address] Performed By: #### 5 8410-2 #### [facility] CLIA [id number] [place] [address] NURSING PROGon 03-29-2022 NURSING PROG HNO ID: [id number] Author: Dipti Crowley RN Service: Nursing Author Type: Registered Nurse Type: Nursing Progress Note Filed: 03/29/2022 2:00 PM Note Text: Nursing Progress Note Patient Name: Mary Leal Patient Location: [place] [address] Daily Note: Patient VSS. RA POx. Pain level better controlled now that FINISHING AND SHIPPING SUPERVISOR initiated. B/L Ropivacaine Tap Blocks with dressings [...] and staff. This note was completed by: Dipti Crowley [facility] NURSING PROG HNO ID: [id number] Author: Kev Leone RN Service: ? Author Type: Registered Nurse Type: Nursing Progress Note Filed: 03/29/2022 3:53 AM Note Text: Nursing Progress Note Patient Name: Mary Leal Patient Location: [place] [address] Daily Note: 0350: Pt states she is in 10/10 pain, pt has no PO pain meds ordered, page sent to surgery resident This note was completed by: Kev Leone [facility] PT EDon 03-29-2022 PT ED HNO ID: [id number] Author: Merced Morales DTR Service: Nutrition Therapy Author Type: Supervisor Prop Making Type: Patient Education Filed: 03/29/2022 11:05 AM [...] March 29, 2022 TIME: 11:04 AM PAGER: [facility] Phosphate SerPl-mCncon 03-29 Phosphate [Mass/Vol] 2.9 mg/dL Normal 2.7-4.8 [facility] Comment on above: Order Comment: Speci men Type: BLOOD SPECIMEN Ordering Facility: [facility] Address: [address] [place] [id number] Performed By: #### 5 8410-2 #### [facility] CLIA [id number] [address] [place] [address] [place] ANES PRE-OPon 03-28-2022 ANES PRE-OP HNO ID: [id number] Author: Anibal Bertrand MD Service: Anesthesiology Author [...] and consent discussed: yes. Patient / Responsible Republican agrees to proceed: yes Patient / Surrogate [...] Vitals Value Taken Time BP 114/77 03/28/22 08 Pulse 80 03/28/22812 Resp Temp 36.1 ?C (97 ?F) 03/28/22 08 SpO2 98 % 03/28/22 0813 Facility-Administered Medications [...] LUNGS every 4 hours if needed - eygmuzuyqjw-gwgaqipxj-wki anter (TRELEGY ELLIPTA) 100-62.5-25 mcg Inhale 1 [...] (FLONASE) 50 mcg/actuation nasal spray Use 1 Berkley in each nostril on (more content not included)... [facility] BRIEF OP NOTon 03-28-2022 BRIEF OP NOT HNO ID: [id number] Author: Nita Lamas MD Service: Colorectal Author Type: Fellow Type: Brief Op Note Filed: 03/28/2022 3:43 PM Note Text: BRIEF OPERATIVE NOTE - COLORECTAL SURGERY Log ID: [id number] Surgery/Procedure Date: 03/28/2022 Incision/Procedure Start Time: 9:47 AM Incision Close/Procedure End Time: 3:40 PM Surgeon(s) and Market Gardener(s): Surgeon(s) and Role: * Mary Obrien MD [...] DATE: March 28, 2022 TIME: 3:42 PM [facility] NURSING PROGon 03-28-2022 NURSING PROG HNO ID: [id number] Author: Merced Lay RN Service: ? Author Type: Registered Nurse Type: Nursing Progress Note Filed: 03/28/2022 6:56 PM Note Text: Nursing Progress Note Patient Name: Mary Leal Patient Location: [place] [address] [address] Transfer Note: Patient transferred into room/unit PK3B22 in stable condition. Actions taken: No futher actions taken at this time. Will continue to monitor and check with patient. Paged surgical team. Pt has TAP blocks, but orders were discontinued from PACU. New orders for blocks need to be placed in eMAR. Awaiting call back or orders. This note was completed by: Merced Lay [facility] NURSING PROG HNO ID: [id number] Author: Monica Nicole RN Service: Nursing Author Type: Registered Nurse Type: Nursing Progress Note Filed: 03/28/2022 6:35 PM Note Text: Nursing Progress Note Patient Name: Mary Leal Patient Location: [place] OR PO[facility] Daily Note: 1749: Dr. Novak notified of patients increase in heart rate from arrival to post op. Patient HR now maintaining in the 120s. 1830: university president rounding at patient bedside. Dressing and abdomen assessed- drainage to be expected on island dressing. Notified him of patients HR running high and notified that patient normally takes 50mg atenolol but held today for surgery. Patient's pain managed and other VS stable at this time. university president is OK with patient going to regular nursing floor at this time. Family updated. This note was completed by: Monica Nicole [facility] NURSING PROG HNO ID: [id number] Author: Vianney Chacon RN Service: Nursing Author [...] (RECOMMENDATION): None Electronically Signed By: Vianney Chacon [facility] OPERATIVE NOon 03-28-2022 OPERATIVE NO HNO ID: [id number] Author: Mary Obrien MD Service: Colorectal Author Type: Physician Type: Operative Report Filed: 03/28/2022 5:06 PM Note Text: COLON AND RECTAL SURGERY OPERATIVE REPORT PATIENT NAME: Mary Leal ADMISSION DATE: 03/28/2022 LOG ID: [id number] SURGERY/PROCEDURE DATE: 03/28/2022 INCISION/PROCEDURE START TIME: 9:47 AM INCISION CLOSE/PROCEDURE END TIME: 3:40 PM AGE: [age] year old SEX: female SURGEON(S)/PROCEDURALIST( S) AND SHEATHER(S): Surgeon(s) and Role: * Mary Obrien MD [...] The abdome (more content not included)... Normal [facility] SURGICAL PATHOLOGYon 022 CASE REPORT Normal [facility] Comment on above: Order Comment: Speci men Type: BLOOD SPECIMEN Ordering Facility: [facility] Address: [address] [place] [address] Result Comment: Surg [facility] Pathology Report Case: [id number] Authorizing Provider: Mary Obrien MD Collected: 03/28/2022 01:43 PM Ordering Location: [facility] Received: 03/28/2022 04:10 PM Operating Room Pathologist: Areli Rodriguez MD Specimen: COLON RESECTION, terminal ileum with ileostomy Performed By: #### 5 7021-8 #### [facility] CLIA [id number] CLINICAL HISTORY ILEORECTAL ANASTOMOS IS, TAKEDOWN OF ILEOSTOMY Normal [facility] Comment on above: Order Comment: Speci men Type: BLOOD SPECIMEN Ordering Facility: [facility] Address: [address] [place] [address] Performed By: #### 5 7021-8 #### [facility] CLIA [id number] DIAGNOSIS COMMENT The histologic findi ngs [...] of associated inflammation or infectious organisms. Normal [facility] Comment on above: Order Comment: Speci men Type: BLOOD SPECIMEN Ordering Facility: [facility] Address: [address] [place] [address] Performed By: #### 5 7021-8 #### [facility] CLIA [id number] [address] [place] [address] FINAL DIAGNOSIS [facility] Comment on above: Order Comment: Speci men Type: BLOOD SPECIMEN Ordering Facility: [facility] Address: [address] [place] [address] Result Comment: [place] n and terminal ileum with ileostomy, resection: - Colon with patchy active colitis, submucosal fibrosis, acute serositis, and fibrovascular adhesions (see comment). - Small bowel with focal transmural defect, acute serositis, fibrovascular adhesions, and changes consistent with ileostomy site. - Benign lymph nodes. JEL 03/31/2022 Performed By: #### 5 7021-8 #### [facility] CLIA [id number] [address] [place] [address] [place] FINAL PERFORMING LAB Normal [facility] Comment on above: Order Comment: Speci men Type: BLOOD SPECIMEN Ordering Facility: [facility] Address: [address] [place] [address] Result Comment: Diag nostic interpretation performed at [facility], [address] [place] [address] CLIA# [id number] Collar Padder Blindstitch: Joshua Anderson M.D. Performed By: #### 5 7021-8 #### [facility] CLIA [id number] [place] [address] GROSS DESCRIPTION Normal [facility] Comment on above: Order Comment: Speci men Type: BLOOD SPECIMEN Ordering Facility: [facility] Address: [address] [place] [address] Result Comment: A. C OLON RESECTION. Received [...] diverticula. The serosa is jaimes-pink and smooth. Cad Programmer sections are submitted from distal to proximal [...] 2022 9:53 AM Gross examination performed at [facility], [address] [place] [address] CLIA # [id number] Performed By: #### 5 7021-8 #### [facility] CLIA [id number] [address] [place] [address] [place] Q - CBC W/DIFF AND PLTon BASOABS 59 cells/uL Normal 0-200 [facility] Comment on above: Order Comment: [facility] performed at: [facility], [facility], [address] [place] [address], [address] [place] [address], [place], [address], Collar Padder Blindstitch: Gopal Hamilton MD [facility] Collection Date/Time: [id number] [facility] Results Received Date/Time: [facility] Reported Date/Time: Performed By: #### 9 68T, 59033C, %8293, 73573U, 6399, 496X #### [facility] [address] [place] [address] Basophils/100 WBC (Bld) 1.0 % Normal [facility] Comment on above: Order Comment: [facility] performed at: [employer], [employer] [facility], [address] , [address] [place] [address], [address] [place] [address], Collar Padder Blindstitch: Gopal Hamilton MD [facility] Date/Time: [facility] Results Received Date/Time: [facility] Reported Date/Time: Performed By: #### 9 68T, 06115S, %8293, 36021J, 6399, 496X #### [facility] [address] [place] [address] EOSABS 171 cells/uL Normal 15-500 [facility] Comment on above: Order Comment: [facility] performed at: [employer], [employer] [facility], [address], [address] [place] [address], [address] [place] [address], Collar Padder Blindstitch: Gopal Hamilton MD [facility] Date/Time: [facility] Results Received Date/Time: [facility] Reported Date/Time: Performed By: #### 9 68T, 09129J, %8293, 10634A, 6399, 496X #### [facility] [address] [place] [address] Eosinophils/100 WBC (Bld) 2.9 % Normal [facility] Comment on above: Order Comment: [facility] performed at: [employer], [employer] [facility], [address] , [address] [place] [address], [address] [place] [address], Collar Padder Blindstitch: Gopal Hamilton MD [facility] Date/Time: [facility] Results Received Date/Time: [facility] Reported Date/Time: Performed By: #### 9 68T, 93639H, %8293, 62884U, 6399, 496X #### [facility] [address] [place] [address] Erythrocyte distribution width (RBC) [Ratio] 12.9 % Normal 11.0-15.0 [facility] Knitter Operator Comment on above: Order Comment: [facility] performed at: [employer], [employer] [facility], [address] [place] [address], [address] [place] [address], [address] [place] [address], Collar Padder Blindstitch: Gopal Hamilton MD [facility] Date/Time: [facility] Results Received Date/Time: [facility] Reported Date/Time: Performed By: #### 9 68T, 63249Y, %8293, 83783C, 6399, 496X #### [facility] [address] [place] [address] Hematocrit (Bld) [Volume fraction] 38.1 % Normal 35.0-45.0 [facility] Comment on above: Order Comment: [facility] performed at: [employer], [employer] [facility], [address] [place] [address], [address] [place] [address], [address] [place] [address], Collar Padder Blindstitch: Gopal Hamilton MD [facility] Date/Time: [facility] Results Received Date/Time: [facility] Reported Date/Time: Performed By: #### 9 68T, 19600P, %8293, 64514C, 6399, 496X #### [facility] [address] [place] [address] Hemoglobin (Bld) [Mass/Vol] 12.9 g/dL Normal 11.7-15.5 [facility] Comment on above: Order Comment: [facility] performed at: [employer], [employer] [facility], [address] [place] [address], [address] [place] [address], [address] [place] [address], Collar Padder Blindstitch: Gopal Hamilton MD [facility] Date/Time: [facility] Results Received Date/Time: [facility] Reported Date/Time: Performed By: #### 9 68T, 75901J, %8293, 41925T, 6399, 496X #### [facility] [address] [place] [address] Lymphocytes (Bld) [#/Vol] 1.375 10*3/uL Normal 850-3900 [facility] Comment on above: Order Comment: [facility] performed at: [employer], [employer] [facility], [address] [facility], [address] [place] [address], [address] [place] [address], Collar Padder Blindstitch: Gopal Hamilton MD [facility] Date/Time: [facility] Results Received Date/Time: [facility] Reported Date/Time: Performed By: #### 9 68T, 96368L, %8293, 82884H, 6399, 496X #### [facility] [address] [place] [address] Lymphocytes/100 WBC (Bld) 23.3 % Normal [facility] Comment on above: Order Comment: [facility] performed at: [employer], [employer] [facility], [address] [facility], [address] [place] [address], [address] [place] [address], Collar Padder Blindstitch: Gopal Hamilton MD [facility] Date/Time: [facility] Results Received Date/Time: [facility] Reported Date/Time: Performed By: #### 9 68T, 62116A, %8293, 02324H, 6399, 496X #### [facility] [address] [place] [address] MCH (RBC) [Entitic mass] 30.0 pg Normal 27.0-33.0 [facility] Comment on above: Order Comment: [facility] performed at: [employer], [employer] [facility], [address] [facility], [address] [place] [address], [address] [place] [address], Collar Padder Blindstitch: Gopal Hamilton MD [facility] Date/Time: [facility] Results Received Date/Time: [facility] Reported Date/Time: Performed By: #### 9 68T, 36908G, %8293, 14809T, 6399, 496X #### [facility] [address] [place] [address] MCHC (RBC) [Mass/Vol] 33.9 g/dL Normal 32.0-36.0 [facility] Comment on above: Order Comment: [facility] performed at: [employer], [employer] [facility], [address] , [address] [place] [address], [address], Collar Padder Blindstitch: Gopal Hamilton MD [facility] Date/Time: [facility] Results Received Date/Time: [facility] Reported Date/Time: Performed By: #### 9 68T, 93676B, %8293, 11330Q, 6399, 496X #### [facility] [address] [place] [address] MCV (RBC) [Entitic vol] 88.6 fL Normal 80.0-100.0 [facility] Comment on above: Order Comment: [facility] performed at: [employer], [employer] [facility], [address] , [address] [place] [address], [address], Collar Padder Blindstitch: Gopal Hamilton MD [facility] Date/Time: [facility] Results Received Date/Time: [facility] Reported Date/Time: Performed By: #### 9 68T, 03266Q, %8293, 08674C, 6399, 496X #### [facility] [address] [place] [address] MONOABS 460 cells/uL Normal 200-950 [facility] Operator Comment on above: Order Comment: [facility] performed at: [employer], [employer] [facility], [address] , [address] [place] [address], [address], Collar Padder Blindstitch: Gopal Hamilton MD [facility] Date/Time: [facility] Results Received Date/Time: [facility] Reported Date/Time: Performed By: #### 9 68T, 71948F, %8293, 62295D, 6399, 496X #### [facility] [address] [place] [address] Monocytes/100 WBC (Bld) 7.8 % Normal [facility] Comment on above: Order Comment: [facility] performed at: [employer], [employer] [facility], [address], [address] [place] [address], [address] [place] [address], Collar Padder Blindstitch: Gopal Hamilton MD [facility] Date/Time: [facility] Results Received Date/Time: [facility] Reported Date/Time: Performed By: #### 9 68T, 02477O, %8293, 65002I, 6399, 496X #### [facility] [address] [place] [address] Neutrophils (Bld) [#/Vol] 3.835 10*3/uL Normal 1678-7555 [facility] Comment on above: Order Comment: [facility] performed at: [employer], [employer] [facility], [address], [address] [place] [address], [address] [place] [address], Collar Padder Blindstitch: Gopal Hamilton MD [facility] Date/Time: [facility] Results Received Date/Time: [facility] Reported Date/Time: Performed By: #### 9 68T, 89570I, %8293, 27254R, 6399, 496X #### [facility] [address] [place] [address] Neutrophils/100 WBC (Bld) 65 % Normal [facility] Comment on above: Order Comment: [facility] performed at: [employer], [employer] [facility], [address], [address] [place] [address], [address] [place] [address], Collar Padder Blindstitch: Gopal Hamilton MD [facility] Date/Time: [facility] Results Received Date/Time: [facility] Reported Date/Time: Performed By: #### 9 68T, 89810Y, %8293, 08362H, 6399, 496X #### [facility] [address] [place] [address] Platelet mean volume (Bld) [Entitic vol] 9.3 fL Normal 7.5-12.5 [facility] Comment on above: Order Comment: [facility] performed at: [employer], [employer] [facility], [address] , [address] [place] [address], [address] [place] [address], Collar Padder Blindstitch: Gopal Hamilton MD [facility] Date/Time: [facility] Results Received Date/Time: [facility] Reported Date/Time: Performed By: #### 9 68T, 10172T, %8293, 76776L, 6399, 496X #### [facility] Default [address] [place] [address] Platelets (Bld) [#/Vol] 409 10*3/uL High 140-400 [facility] Comment on above: Order Comment: [facility] performed at: [employer], [employer] [facility], [address] , [address] [place] [address], [address] [place] [address], Collar Padder Blindstitch: Gopal Hamilton MD [facility] Date/Time: [facility] Results Received Date/Time: [facility] Reported Date/Time: Performed By: #### 9 68T, 05283F, %8293, 29459M, 6399, 496X #### [facility] [address] [place] [address] RBC (Bld) [#/Vol] 4.30 10*6/uL Normal 3.80-5.10 [facility] Comment on above: Order Comment: [facility] Testing performed at: [employer], [employer] [facility], [address] , [address] [place] [address], [address] [place] [address], Collar Padder Blindstitch: Gopal Hamilton MD [facility] Date/Time: [facility] Results Received Date/Time: [facility] Reported Date/Time: Performed By: #### 9 68T, 33145Y, %8293, 43599R, 6399, 496X #### [facility] Default [address] [place] [address] WBC (Bld) [#/Vol] 5.9 10*3/uL Normal 3.8-10.8 [facility] [place] [facility] Comment on above: Order Comment: [facility] performed at: [employer], [employer] [facility], [address] [facility], [address] [place] [address], [address] [place] [address], Collar Padder Blindstitch: Gopal Hamilton MD [facility] Date/Time: [facility] Results Received Date/Time: [facility] Reported Date/Time: Performed By: #### 9 68T, 71040K, %8293, 50120O, 6399, 496X #### [facility] Default [address] [place] [address] Q - COMPREHENSIVE METABOLIC PANEL W/EGFRon 03-10-2022 Albumin [Mass/Vol] 4.3 g/dL Normal 3.6-5.1 [facility] [place] [facility] Comment on above: Order Comment: [facility] performed at: [employer] [facility], [address] [place] [address], [address] [place] [address], [address] [place] [address], Collar Padder Blindstitch: Gopal Hamilton MD [facility] Date/Time: [facility] Results Received Date/Time: [facility] Reported Date/Time: Performed By: #### 9 68T, 71050L, %8293, 65242B, 6399, 496X #### [facility] Default [address] [place] [address] Albumin/Globulin [Mass ratio] 1.7 {ratio} Normal 1.0-2.5 [facility] Comment on above: Order Comment: [facility] performed at: [employer], [employer] [facility], [address] [facility], [address] [place] [address], [address] [place] [address], Collar Padder Blindstitch: Gopal Hamilton MD [facility] Date/Time: [facility] Results Received Date/Time: [facility] Reported Date/Time: Performed By: #### 9 68T, 88281B, %8293, 80870E, 6399, 496X #### [facility] Default [address] [place] [address] ALP [Catalytic activity/Vol] 134 U/L High 31-125 [facility] Comment on above: Order Comment: [facility] performed at: [employer], [employer] [facility], [address] [facility], [address] [place] [address], [address] [place] [address], Collar Padder Blindstitch: Gopal Hamilton MD [facility] Collection Date/Time: [facility] Results Received Date/Time: [facility] Reported Date/Time: Performed By: #### 9 68T, 53463C, %8293, 87126N, 6399, 496X #### [facility] Default [address] [place] [address] ALT [Catalytic activity/Vol] 41 U/L High 6-29 [facility] Knitter Operator Comment on above: Order Comment: Quest Testing performed at: [facility], [facility], [address] [place] [address], [address] [place] [address], [address] [place] [address], Collar Padder Blindstitch: Gopal Hamilton MD [facility] Collection Date/Time: [facility] Results Received Date/Time: [facility] Reported Date/Time: Performed By: #### 9 68T, 76058R, %8293, 07739G, 6399, 496X #### [facility] Default [address] [place] [address] AST [Catalytic activity/Vol] 33 U/L Normal 10-35 [facility] Knitter Operator Comment on above: Order Comment: [facility] Testing performed at: [facility], [facility], [address] [place] [address], [address] [place] [address], [address] [place] [address], Collar Padder Blindstitch: Gopal Hamilton MD [facility] Collection Date/Time: [facility] Results Received Date/Time: [facility] Reported Date/Time: Performed By: #### 9 68T, 85563E, %8293, 40079V, 6399, 496X #### [facility] Default [address] [place] [address] BUN/CREA 17 NOT APPLICABLE Normal 6-22 Adrienne n [place] Knitter Operator Comment on above: Order Comment: [facility] Testing performed at: [facility], [facility], [address] [facility], [address] [place] [address], [address] [place] [address], Collar Padder Blindstitch: Gopal Hamilton MD [facility] Collection Date/Time: [facility] Results Received Date/Time: [facility] Reported Date/Time: Performed By: #### 9 68T, 28276Q, %8293, 23156I, 6399, 496X #### [facility] Default [address] [place] [address] Calcium [Mass/Vol] 9.6 mg/dL Normal 8.6-10.2 [facility] Knitter Operator Comment on above: Order Comment: Quest Testing performed at: [facility], [facility], [address] [place] [address], [address] [place] [address], [address] [place] [address], Collar Padder Blindstitch: Gopal Hamilton MD [facility] Collection Date/Time: [facility] Results Received Date/Time: [facility] Reported Date/Time: Performed By: #### 9 68T, 47842D, %8293, 37686M, 6399, 496X #### [facility] Default [address] [place] [address] Chloride [Moles/Vol] 103 mmol/L Normal 98-110 Gen rodriguez [place] Knitter Operator Comment on above: Order Comment: [facility] Testing performed at: [facility], [facility], [address] [facility], [address] [place] [address], [address] [place] [address], Collar Padder Blindstitch: Gopal Hamilton MD [facility] Collection Date/Time: [facility] Results Received Date/Time: [facility] Reported Date/Time: Performed By: #### 9 68T, 80828I, %8293, 46956V, 6399, 496X #### [facility] Default [address] [place] [address] CO2 [Moles/Vol] 27 mmol/L Normal 20-32 [facility] Knitter Operator Comment on above: Order Comment: [facility] Testing performed at: [facility], [facility], [address] [facility], [address] [place] [address], [address] [place] [address], Collar Padder Blindstitch: Gopal Hamilton MD [facility] Collection Date/Time: [facility] Results Received Date/Time: [facility] Reported Date/Time: Performed By: #### 9 68T, 72377J, %8293, 42110K, 6399, 496X #### [facility] Default [address] [place] [address] Creatinine [Mass/Vol] 0.65 mg/dL Normal 0.50-1.10 [facility] Knitter Operator Comment on above: Order Comment: Quest Testing performed at: [facility], [address] [place] [address], [address] [place] [address], [address] [place] [address], Collar Padder Blindstitch: Gopal Hamilton MD [facility] Collection Date/Time: [facility] Results Received Date/Time: [facility] Reported Date/Time: Performed By: #### 9 68T, 80260D, %8293, 36972M, 6399, 496X #### [facility] Default [address] [place] [address] eGFRAA (Quest) 121 mL/min/1.73m2 Normal > OR = 60 [facility] Knitter Operator Comment on above: Order Comment: [facility] Testing performed at: [facility], [facility], [address] [place] [address], [address] [place] [address], [address] [place] [address], Collar Padder Blindstitch: Gopal Hamilton MD [facility] Collection Date/Time: [facility] Results Received Date/Time: [facility] Reported Date/Time: Performed By: #### 9 68T, 99399H, %8293, 86929S, 6399, 496X #### [facility] Default [address] [place] [address] eGFRNAA (Quest) 104 mL/min/1.73m2 Normal > OR = 60 No rthern [place] Knitter Operator Comment on above: Order Comment: [facility] Testing performed at: [facility], [facility], [address] [facility], [address] [place] [address], [address] [place] [address], Collar Padder Blindstitch: Gopal Hamilton MD [facility] Collection Date/Time: [facility] Results Received Date/Time: [facility] Reported Date/Time: Performed By: #### 9 68T, 81724L, %8293, 46762F, 6399, 496X #### [facility] Default [address] [place] [address] Globulin (S) [Mass/Vol] 2.5 g/dL Normal 1.9-3.7 [facility] Knitter Operator Comment on above: Order Comment: [facility] Testing performed at: [facility], [facility], [address] [facility], [address] [place] [address], [address] [place] [address], Collar Padder Blindstitch: Gopal Hamilton MD [facility] Collection Date/Time: [facility] Results Received Date/Time: [facility] Reported Date/Time: Performed By: #### 9 68T, 00961T, %8293, 63891L, 6399, 496X #### [facility] Default [address] [place] [address] Glucose [Mass/Vol] 94 mg/dL Normal 65-99 [facility] Knitter Operator Comment on above: Order Comment: [facility] Testing performed at: [facility], [facility], [address] [facility], [address] [place] [address], [address] [place] [address], Collar Padder Blindstitch: Gopal Hamilton MD [facility] Collection Date/Time: [facility] Results Received Date/Time: [facility] Reported Date/Time: Result Comment: Fasting reference interval Performed By: #### 9 68T, 79415K, %8293, 91602W, 6399, 496X #### [facility] Default [address] [place] [address] Potassium [Moles/Vol] 4.4 mmol/L Normal 3.5-5.3 Venita larson [place] Knitter Operator Comment on above: Order Comment: Quest Testing performed at: [place], [facility], [address] [place] [address], [address] [place] [address], [address] [place] [address], Collar Padder Blindstitch: Gopal Hamilton MD [facility] Collection Date/Time: [facility] Results Received Date/Time: [facility] Reported Date/Time: Performed By: #### 9 68T, 68731U, %8293, 55187S, 6399, 496X #### [facility] Default [address] [place] [address] Protein [Mass/Vol] 6.8 g/dL Normal 6.1-8.1 Jay gambino [place] Knitter Operator Comment on above: Order Comment: [facility] Testing performed at: [facility], [facility], [address] [place] [address], [address] [place] [address], [address], Collar Padder Blindstitch: Gopal Hamilton MD [facility] Collection Date/Time: [facility] Results Received Date/Time: [facility] Reported Date/Time: Performed By: #### 9 68T, 07303U, %8293, 89709B, 6399, 496X #### [facility] Default [address] [place] [address] Sodium [Moles/Vol] 138 mmol/L Normal 135-146 Jay gambino [place] Knitter Operator Comment on above: Order Comment: [facility] Testing performed at: [facility], [facility], [address] [place] [address], [address] [place] [address], [address] [place] [address], Collar Padder Blindstitch: Gopal Hamilton MD [facility] Collection Date/Time: [facility] Results Received Date/Time: [facility] Reported Date/Time: Performed By: #### 9 68T, 29034E, %8293, 44581U, 6399, 496X #### [facility] Default [address] [place] [address] TBIL <0.3 Normal 0.2-1.2 [facility] Knitter Operator Comment on above: Order Comment: [facility] Testing performed at: [facility], [facility], [address] [place] [address], [address] [place] [address], [address] [place] [address], Collar Padder Blindstitch: Gopal Hamilton MD [facility] Collection Date/Time: [facility] Results Received Date/Time: [facility] Reported Date/Time: Performed By: #### 9 68T, 95010N, %8293, 34820F, 6399, 496X #### [facility] Default [address] [place] [address] Urea nitrogen [Mass/Vol] 11 mg/dL Normal 7-25 [place] Knitter Operator Comment on above: Order Comment: [facility] Testing performed at: [facility], [facility], [address] [place] [address], [address] [place] [address], [address] [place] [address], Collar Padder Blindstitch: Gopal Hamilton MD [facility] Collection Date/Time: [facility] Results Received Date/Time: [facility] Reported Date/Time: Performed By: #### 9 68T, 45881V, %8293, 47915B, 6399, 496X #### [facility] Default [address] [place] [address] Q - DLDL REFLEXon 03-10-2022 Cholesterol in LDL [Mass/Vol] 87 mg/dL Normal <100 [place] Knitter Operator Comment on above: Order Comment: [facility] Testing performed at: [facility], [facility], [address] [place] [address], [address] [place] [address], [phone], Collar Padder Blindstitch: Gopal Hamilton MD [facility] Collection Date/Time: [facility] Results Received Date/Time: [facility] Reported Date/Time: Result Comment: Desirable range <100 mg/dL for primary prevention; <70 mg/dL for patients with CHD or diabetic patients with > or = 2 CHD risk factors. Performed By: #### 9 68T, 63844I, %8293, 81211Q, 6399, 496X #### [facility] Default [address] [place] [address] Q - HEMOGLOBIN A1Con HEMOGLOBIN A1c 5.0 % of total Hgb Normal <5.7 No rthern [place] Knitter Operator Comment on above: Order Comment: [facility] Testing performed at: [facility], [address] [facility], [address] [place] [address], [phone], Collar Padder Blindstitch: Gopal Hamilton MD Quest Collection Date/Time: Quest [...] diagnosis of diabetes in children. According to [place] [employer] (ADA) guidelines, hemoglobin A1c <7.0% represents optimal control in non- diabetic patients. Different metrics may apply to specific patient populations. Standards of Medical Care in Diabetes(ADA). Performed By: #### 9 68T, 44021D, %8293, 20878Q, 6399, 496X #### [facility] Default [address] [place] [address] Q - Lipid Panelon 03-10-2022 Cholesterol [Mass/Vol] 230 mg/dL High <200 No rthern [place] Knitter Operator Comment on above: Order Comment: [facility] Testing performed at: [facility], [address] [place] [address], [address] [place] [address], [address] [place] [address], Collar Padder Blindstitch: Gopal Hamilton MD [facility] Collection Date/Time: [facility] Results Received Date/Time: [facility] Reported Date/Time: Performed By: #### 9 68T, 37698A, %8293, 02852G, 6399, 496X #### [facility] Default [address] [place] [address] Cholesterol in HDL [Mass/Vol] 52 mg/dL Normal > OR = 50 [place] Knitter Operator Comment on above: Order Comment: [facility] Testing performed at: [facility], [facility], [address] [place] [address], [address] [place] [address], [address] [place] [address], Collar Padder Blindstitch: Gopal Hamilton MD [facility] Collection Date/Time: [facility] Results Received Date/Time: [facility] Reported Date/Time: Performed By: #### 9 68T, 77067C, %8293, 13857W, 6399, 496X #### [facility] Default [address] [place] [address] Cholesterol.total/Chol esterol in HDL [Mass ratio] 4.4 {ratio} Normal <5.0 [place] Knitter Operator Comment on above: Order Comment: [facility] Testing performed at: [facility], [address] [place] [address], [address] [place] [address], [address] [place] [address], Collar Padder Blindstitch: Gopal Hamilton MD [facility] Collection Date/Time: [facility] Results Received Date/Time: [facility] Reported Date/Time: Performed By: #### 9 68T, 79332J, %8293, 32720M, 6399, 496X #### [facility] Default [address] [place] [address] LDLD SEE NOTE Normal [place] Knitter Operator Comment on above: Order Comment: [facility] Testing performed at: [facility], [facility], [address] [place] [address], [address] [place] [address], [address], Collar Padder Blindstitch: Gopal Hamilton MD [facility] Collection Date/Time: Quest [...] LDL-C. Estevan SS et al. ZANA. 2013;310(19): 7067-3201 ([email or web address]) Performed By: #### 9 68T, 27266D, %8293, 93416P, 6399, 496X #### [facility] Default [address] [place] [address] NON HDL CHOLESTEROL 178 mg/dL (calc) High <130 [facility] Knitter Operator Comment on above: Order Comment: [facility] Testing performed at: [facility], [address] [place] [address], [address] [place] [address], [address], Collar Padder Blindstitch: Gopal Hamilton MD [facility] Collection Date/Time: [facility] Results Received Date/Time: [facility] Reported Date/Time: Result Comment: For patients with diabetes plus 1 major ASCVD risk factor, treating to a non-HDL-C goal of <100 mg/dL (LDL-C of <70 mg/dL) is considered a therapeutic option. Performed By: #### 9 68T, 67298I, %8293, 46088L, 6399, 496X #### [facility] Default [address] [place] [address] Triglyceride [Mass/Vol] 410 mg/dL High <150 [facility] Knitter Operator Comment on above: Order Comment: [facility] Testing performed at: [facility], [address] [place] , [address] [place] [address], [address] [place] [address], Collar Padder Blindstitch: Gopal Hamilton MD [facility] Collection Date/Time: [facility] Results Received Date/Time: [facility] Reported Date/Time: Result Comment: If a non-fasting specimen was collected, consider repeat triglyceride testing on a fasting specimen if clinically indicated. João et al. J. of Clin. Lipidol. 2015;9:129-169. Performed By: #### 9 68T, 90622I, %8293, 88123P, 6399, 496X #### [facility] Default [address] [place] [address] Q - TROPONIN Ion 03-10-2022 TROPONIN I 3 ng/L Normal < OR = 47 [facility] Comment on above: Order Comment: [facility] Testing performed at: [facility], [address] [facility], [address] [place] [address], [address] [place] [address], Collar Padder Blindstitch: Gopal Hamilton MD [facility] Collection Date/Time: [facility] Results Received Date/Time: [facility] Reported Date/Time: Result Comment: In accord with published recommendations, serial testing of troponin I at intervals of 2 to 4 hours for up to 12 to 24 hours is suggested in order to corroborate a single troponin I result. An elevated troponin alone is not sufficient to make the diagnosis of [place]. Performed By: #### 9 68T, 57218W, %8293, 09135Q, 6399, 496X #### [facility] Default [address] [place] [address] UA DIP, URINE (POC)on 2021 BILIRUBIN UA (POCT) Negative Negative [facility] CLARITY UA (POCT) Clear [facility] COLOR UA (POCT) Yellow [facility] GLUCOSE UA (POCT) Negative Negative mg/dL [facility] HEMOGLOBIN/BLOOD UA (POCT) Negative Negative [facility] KETONE UA (POCT) Negative Negative mg/dL [facility] LEUKOCYTES UA (POCT) Negative Negative [facility] NITRITE UA (POCT) Negative Negative [facility] PH UA (POCT) 5.0 4.5 - 8.0 [facility] Protein Ql (U) Trace Abnormal Negative mg/dL [facility] SPECIFIC GRAVITY UA (POCT) >=1.030 1.005 - 1.030 [facility] UROBILINOGEN UA (POCT) 0.2 E.U./dL Brenda l E.U./dL [facility] CNTHERAPYon 01-31-2022 CNTHERAPY OT/PT/Speech Visit (PTLHO) ----- MARY LEAL ([id number]) 1970 F Date Time Provider Department 01/31/22 10:30 AM [facility] Date Time Provider Department Center 01/31/2022 10:30 AM [id number], JILL PTKALEIGH [facility] Reason for Visit: Physical Therapy [503] [...] (FLONASE) 50 mcg/actuation nasal spray Use 1 Berkley in each nostril once daily. - carBAMazepine [...] by mouth every morning BEFORE BREAKFAST - isnqfzvftba-veoocldtv-dwu anter (TRELEGY ELLIPTA) 100-62.5-25 mcg Inhale 1 Puff as instructed once daily. - atenolol (TENORMIN) 50 mg tablet Take 50 mg by mouth once daily. ----- [facility] CNTHERAPYon 01-24-2022 CNTHERAPY OT/PT/Speech Visit (PTLHO) ----- MARY LEAL ([id number]) 1970 F Date Time Provider Department 01/24/22 10:30 AM [facility]OD[facility] Date Time Provider Department [place] 01/24/2022 10:30 AM [id number] WOODWARD [facility] Reason for Visit: Physical Therapy [503] [...] (FLONASE) 50 mcg/actuation nasal spray Use 1 Berkley in each nostril once daily. - carBAMazepine [...] by mouth every morning BEFORE BREAKFAST - lcfrxdxkhwb-zmkbeqovw-zay anter (TRELEGY ELLIPTA) 100-62.5-25 mcg Inhale 1 Puff as instructed once daily. - atenolol (TENORMIN) 50 mg tablet Take 50 mg by mouth once daily. ----- [facility] CNTHERAPYon 01-18-2022 CNTHERAPY OT/PT/Speech Visit (PTLHO) ----- MARY LEAL ([id number]) 1970 F Date Time Provider Department 01/18/22 12:15 PM JESSI ISAACS PTLHO Date Time Provider Department Center 01/18/2022 12:15 PM [id number] [facility] Reason for Visit: PT Eval [747] [...] (FLONASE) 50 mcg/actuation nasal spray Use 1 Berkley in each nostril once daily. - carBAMazepine [...] by mouth every morning BEFORE BREAKFAST - lrhwkcstonj-fzopoljsa-ysc anter (TRELEGY ELLIPTA) 100-62.5-25 mcg Inhale 1 Puff as instructed once daily. - atenolol (TENORMIN) 50 mg tablet Take 50 mg by mouth once daily. ----- [facility] HNO ID: [id number] Author: Sonido Owen MD Service: Colorectal Author Type: Resident Type: Discharge Summary Filed: 12/27/2021 3:55 PM Note Text: ----- Attestation signed by Mary Obrien MD at 12/29/2021 4:11 PM [facility] STAFF PHYSICIAN NOTE OF PERSONAL INVOLVEMENT IN [...] the PACU and was transferred to the RNF. Postoperatively, the patient recovered well. Her diet [...] 50 mg Finesse (more content not included)... [facility] CONSULTon 12-27-2021 CONSULT HNO ID: [id number] Author: Trini Hines RN Service: Wound/Ostomy Author Type: Registered Nurse Type: Consults Filed: 12/27/2021 3:32 PM Note Text: STOMA CARE POST-OPERATIVE ASSESSMENT AND PATIENT EDUCATION Patient Name: Mary Leal Date: December 27, 2021 Time: 3:20 PM ET Care Outcome: Ms. Leal was seen today on the [facility] for ostomy education and a pouch change lesson. ET's Next Scheduled Visit: Complete. STOMA ASSESSMENT Stoma type: Loop ileostomy Diameter: 35 mm with and extra 1 mm cut on the medial side of the pouch. Location: RLQ Protrusion: Budded, Os points downward Mucosal condition and color: Red and [place] and moist. Boni: No Mucocutaneous Junction: Intact [...] one piece cut to fit drainable pouch (#16391) and Coloplast Brava moldable ring (2mm) #[id number]. Brava barrier strips, product # [id number] applied around the border of the pouch. INCISION Degree of approximation: 100% Approximating devices: Surgical Glue Drainage: None Method of Management: VENEER LATHE OPERATOR Time Increment: 45 minutes Comments: NA Supplies [...] Home Health Agency SIGNATURE: Trini HENSON RN COCN CWCN This is an electronically created document. IF PRINTED, PLEASE DO NOT REMOVE FROM THE CHART OR MODIFY PRINTED COPY. [facility] NURSING PROGon 12-27-2021 NURSING PROG HNO ID: [id number] Author: Marizol Hankins RN Service: ? Author Type: Registered Nurse Type: Nursing Progress Note Filed: 12/27/2021 4:39 PM Note Text: Nursing Progress Note Patient Name: Mary Leal Patient Location: [place] [address] [address] Daily Note: Pt AANDO x 3. Lap [...] This note was completed by: Marizol Hankins [facility] NUTRITIONon 12-27-2021 NUTRITION HNO ID: [id number] Author: Merced Morales DTR Service: Nutrition Therapy Author Type: Supervisor Prop Making Type: Nutrition Filed: 12/27/2021 12:16 PM Note Text: NUTRITION THERAPY KNITTING TESTER NOTE SERVICE DATE: 12/27/2021 SERVICE TIME: 10:00 [...] DATE: December 27, 2021 TIME: 12:15 PM [facility] PT EDon 12-27-2021 PT ED HNO ID: [id number] Author: Merced Morales DTR Service: Nutrition Therapy Author Type: Supervisor Prop Making Type: Patient Education Filed: 12/27/2021 12:16 PM [...] $ Routine Care : 31-45 minutes SIGNATURE: eMrced Morales DTR PATIENT NAME: Mary Leal DATE: December 27, 2021 TIME: 12:16 PM PAGER: Normal [facility] Basic Metabolic Panlon 12-26 Anion gap [Moles/Vol] 9 mmol/L Normal 9-18 [facility] Comment on above: Performed By: #### B MP #### [place] [id number] Calcium [Mass/Vol] 8.5 mg/dL Normal 8.5-10.5 [facility] Comment on above: Performed By: #### B MP #### [place] [id number] Chloride [Moles/Vol] 102 mmol/L Normal 98-110 [facility] Comment on above: Performed By: #### B MP #### [place] [phone] CO2 [Moles/Vol] 28 mmol/L Normal 23-32 [facility] Comment on above: Performed By: #### B MP #### [place] [phone] Creatinine [Mass/Vol] 0.62 mg/dL Low 0.70-1.40 [facility] Comment on above: Performed By: #### B MP #### [place] [id number] eGFR- Amer. >60 Normal >59 [facility] Comment on above: Performed By: #### B MP #### [place] [id number] eGFR-All Other Races >60 Normal >59 [facility] Comment on above: Result Comment: eGFR (Estimated [...] [email or web address]. Performed By: #### B MP #### [place] [phone] Glucose [Mass/Vol] 71 mg/dL Normal 65-100 [facility] Comment on above: Performed By: #### B MP #### [place] [phone] Potassium [Moles/Vol] 4.0 mmol/L Normal 3.5-5.0 [facility] Comment on above: Performed By: #### B MP #### [place] [phone] Sodium [Moles/Vol] 139 mmol/L Normal 132-148 [facility] Comment on above: Performed By: #### B MP #### [place] [phone] Urea nitrogen [Mass/Vol] 10 mg/dL Normal 8-25 [facility] Comment on above: Performed By: #### B MP #### [place] [phone] NURSING PROGon 12-26-2021 NURSING PROG HNO ID: [id number] Author: Dipti Crowley RN Service: Nursing Author Type: Registered Nurse Type: Nursing Progress Note Filed: 12/26/2021 5:25 PM Note Text: Nursing Progress Note Patient Name: Mary Leal Patient Location: [place] [address] Daily Note: Call discontinued as directed in orders. 700cc output from call. 250cc NS instilled and then call catheter removed. Patient assisted to C and voided 200cc pink tinged urine. Patient assisted back to bed, not wanting to go to chair. Call light in reach. This note was completed by: [facility] NURSING PROG HNO ID: [id number] Author: Dipti Crowley, RN Service: Nursing Author Type: Registered Nurse Type: Nursing Progress Note Filed: 12/26/2021 3:51 PM Note Text: Nursing Progress Note Patient Name: Mary Leal Patient Location: [place] [address]/[place] [address] Daily Note: Patient AANDOx3. VSS. 2L NC POx. IVF infusing as ordered. Dilaudid FINISHING AND SHIPPING SUPERVISOR, OXY IR on for pain. Patient drowsy yet easily arousable. Lap sites and transverse incision VENEER LATHE OPERATOR with glue. Ileostomy draining liquid brown. Call draining clear yellow. PAS on. No edema. Fa,saman at bed side. Call light in reach. This note was completed by: Dipti [facility] Basic Metabolic Panlon 12-25 Anion gap [Moles/Vol] 9 mmol/L Normal 9-18 [facility] Comment on above: Performed By: #### B MP #### [facility] [address] [place] [address] Calcium [Mass/Vol] 8.5 mg/dL Normal 8.5-10.5 [facility] Comment on above: Performed By: #### B MP #### [place] [id number] [place] [address] Chloride [Moles/Vol] 104 mmol/L Normal 98-110 [facility] Comment on above: Performed By: #### B MP #### [place] [phone] CO2 [Moles/Vol] 28 mmol/L Normal 23-32 [facility] Comment on above: Performed By: #### B MP #### [phone] Creatinine [Mass/Vol] 0.72 mg/dL Normal 0.70-1.40 [facility] Comment on above: Performed By: #### B MP #### [place] [phone] eGFR- Amer. >60 Normal >59 [facility] Comment on above: Performed By: #### B MP #### [place] [phone] eGFR-All Other Races >60 Normal >59 [facility] Comment on above: Result Comment: eGFR (Estimated [...] [email or web address]. Performed By: #### B MP #### [place] [phone] Glucose [Mass/Vol] 91 mg/dL Normal 65-100 [facility] Comment on above: Performed By: #### B MP #### [facility] [address] [place] [phone] Potassium [Moles/Vol] 4.0 mmol/L Normal 3.5-5.0 [facility] Comment on above: Performed By: #### B MP #### [place] [phone] Sodium [Moles/Vol] 141 mmol/L Normal 132-148 [facility] Comment on above: Performed By: #### B MP #### [place] [phone] Urea nitrogen [Mass/Vol] 12 mg/dL Normal 8-25 [facility] Comment on above: Performed By: #### B MP #### [place] [phone] CASE MGT INIT ASSESon 2021 CASE MGT INIT ASSES HNO ID: [id number] Author: TITO Whitt Service: ? 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 Last discharge within 30 days: No Advance Directive: Current Advance Directive: Health Care Power of Host Hostess In Chart: No Health LiteracyHow often do [...] None Has the Patient Been in a Penitentiary Facility in the Past 30 days?: No [...] Completely I feel financially burdened by my siw-xe-yokcpf expenses for my prescription medication:: 0 - Disagree Completely Risk Score: 0 Patient is categorized as: Low risk < 2 Are you interested in bedside delivery of your medications? Yes Is Patient Psychosocially Complex?: No ASSESSMENT AND PLAN: Medical Needs: Medical Needs: None Psychosocial Needs: Psychosocial Needs: None FREEDOM OF CHOICE EXPLAINED: [place] of Choice Given: Yes Level of Care Discussed: Home Care Financial Disclosure Provided: Yes [facility] Dis[facility] Provider List: Home Care Provider list within the patient's requested geographic area shared with the patient/family: Yes within: 15 miles of zip code: [address] Quality and resource use metrics shared with [...] bedside with pt during assessment. Charo Obando [phone]. Home care referrals sent. Daughter to transport at time of discharge. SIGNATURE: TITO Whitt PATIENT NAME: Mary Leal DATE: December 25, 2021 TIME: 11:39 AM PAGER/CONTACT #: [phone] Normal [facility] CBC and Differentialon 12-25 Abs Baso 0.03 k/uL Normal <0.11 [facility] Comment on above: Performed By: #### 5 7021-8 #### [facility] CLIA [id number] [address] [place] [address] STATES [facility] Abs [place] 0.45 k/uL Normal <0.87 [facility] Comment on above: Performed By: #### 5 7021-8 #### [facility] CLIA [id number] [address] [place] [address] Abs Neut 3.85 k/uL Normal 1.45-7.50 [facility] Comment on above: Performed By: #### 5 7021-8 #### [facility] CLIA [id number] [address] [place] [address] Absolute nRBC <0.01 Normal <0.01 [facility] Comment on above: Performed By: #### 5 7021-8 #### [facility] CLIA [id number] [address] [place] [address] Basophils/100 WBC (Bld) 0.5 % Normal [facility] Comment on above: Performed By: #### 5 7021-8 #### [facility] CLIA [id number] [address] [place] [address] DTYPE Auto Diff Normal [facility] Comment on above: Performed By: #### 5 7021-8 #### [facility] CLIA [id number] [address] [place] [address] OF [place] Eosinophils (Bld) [#/Vol] 0.14 10*3/uL Normal <0.46 [facility] Comment on above: Performed By: #### 5 7021-8 #### [facility] CLIA [id number] [address] [place] [address] Eosinophils/100 WBC (Bld) 2.3 % Normal [facility] Comment on above: Performed By: #### 5 7021-8 #### [facility] CLIA [id number] [address] [place] [address] OF [place] Erythrocyte distribution width (RBC) [Ratio] 11.6 % Normal 11.5-15.0 [facility] Comment on above: Performed By: #### 5 7021-8 #### [facility] CLIA [id number] [address] [place] [address] OF [place] Hematocrit (Bld) [Volume fraction] 35.2 % Low 36.0-46.0 [facility] Comment on above: Performed By: #### 5 7021-8 #### [facility] CLIA [id number] [address] [place] [address] [place] Hemoglobin (Bld) [Mass/Vol] 11.6 g/dL Normal 11.5-15.5 [facility] Comment on above: Performed By: #### 5 7021-8 #### [facility] CLIA [id number] [address] [place] [address] [place] Lymphocytes (Bld) [#/Vol] 1.47 10*3/uL Normal 1.00-4.00 [facility] Comment on above: Performed By: #### 5 7021-8 #### [facility] CLIA [id number] [address] [place] [address] [place] Lymphocytes/100 WBC (Bld) 24.7 % Normal [facility] Comment on above: Performed By: #### 5 7021-8 #### [facility] CLIA [id number] [address] [place] [address] [place] MCH 29.5 pG Normal 26.0-34.0 [facility] Comment on above: Performed By: #### 5 7021-8 #### [facility] CLIA [id number] [address] [place] [address] [place] MCHC (RBC) [Mass/Vol] 33.0 g/dL Normal 30.5-36.0 [facility] Comment on above: Performed By: #### 5 7021-8 #### [facility] CLIA [id number] [address] [place] [address] [place] MCV (RBC) [Entitic vol] 89.6 fL Normal 80.0-100.0 [facility] Comment on above: Performed By: #### 5 7021-8 #### [facility] CLIA [id number] [address] [place] [address] [facility] OF [place] Monocytes/100 WBC (Bld) 7.6 % Normal [facility] Comment on above: Performed By: #### 5 7021-8 #### [facility] CLIA [id number] [address] [place] [address] OF [place] Neutrophils/100 WBC (Bld) 64.9 % Normal [facility] Comment on above: Performed By: #### 5 7021-8 #### [facility] CLIA [id number] [address] [place] [address] STATES OF [facility] NRBCs 0.0 /100 WBC Normal 0 [facility] Comment on above: Performed By: #### 5 7021-8 #### [facility] CLIA [id number] [address] [place] [address] [place] Platelet mean volume (Bld) [Entitic vol] 9.0 fL Normal 9.0-12.7 [facility] Comment on above: Performed By: #### 5 7021-8 #### [facility] CLIA [id number] [address] [place] [address] OF [place] Platelets (Bld) [#/Vol] 271 10*3/uL Normal 150-400 [facility] Comment on above: Performed By: #### 5 7021-8 #### [facility] CLIA [id number] [address] [place] [address] [place] RBC (Bld) [#/Vol] 3.93 10*6/uL Normal 3.90-5.20 [facility] Comment on above: Performed By: #### 5 7021-8 #### [facility] CLIA [id number] [address] [place] [id number] [place] WBC (Bld) [#/Vol] 5.96 10*3/uL Normal 3.70-11.00 [facility] Comment on above: Performed By: #### 5 7021-8 #### [facility] CLIA [id number] [address] [place] [id number] [place] OF [place] CONSULTon 12-25-2021 CONSULT HNO ID: [id number] Author: Tri Kowalski APRN.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 Service: Wound/Ostomy Author Type: Nurse Practitioner Type: Consults Filed: 12/25/2021 11:37 AM Note Text: OSTOMY SERVICE CONSULT BOX STAPLER SERVICE DATE: 12/25/2021 SERVICE TIME: 1015 Consultation [...] HX 07/2021 revision - VAGINAL HYSTERECTOMY 2014 LAV 10/2015 for endometriosis, [...] mL 20 mEq INTRAVENOUS PRN - HYDROmorphone FINISHING AND SHIPPING SUPERVISOR 0.5 mg/mL in NaCl 0.9% 100 mL [...] with h (more content not included)... Normal [facility] NURSING PROGon 12-25-2021 NURSING PROG HNO ID: [id number] Author: Marilyn Henning, MAKI Service: ? Author Type: Registered Nurse Type: Nursing Progress Note Filed: 12/25/2021 7:01 PM Note Text: Nursing Progress Note Patient Name: Mary Leal [facility] Daily Note: 0930 Pt AANDOx3. Lap sites intact. ABD tender. FINISHING AND SHIPPING SUPERVISOR pump running. Stoma beefy red, dark brown liquid output. Pt stated that the eye pressure felt overnite has resolved. Call remains in place until OBGYN sees pt 12/26. Pt requesting PO pain medication. 1100 Pt up to chair. [address] Ontiveros bedside. 5mg oxy ordered q4 PRN. This note was completed by: Marilyn Henning [facility] NURSING PROG HNO ID: [id number] Author: Annette Ford RN Service: ? Author Type: Registered Nurse Type: Nursing Progress Note Filed: 12/25/2021 6:12 AM Note Text: Nursing Progress Note Patient Name: Mary Leal Patient Location: [place] [address] [address] Daily Note: Pt has been complaining of [...] This note was completed by: Annette Ford [facility] ANES POSTPROC EVALon 022 ANES POSTPROC EVAL HNO ID: [id number] Author: Charisse Aggarwal MD Service: Anesthesiology Author [...] December 24, 2021 TIME: 4:17 PM CSN: [id number] [facility] ANES PRE-OPon 12-24-2021 ANES PRE-OP HNO ID: [id number] Author: Chayito Ojeda MD Service: Anesthesiology Author [...] none. Vitals Value Taken Time BP 122/76 12/24/21 0628 Pulse 86 02/18/22 0628 Resp 16 02/18/22 0628 Temp 36.4 ?C (97.5 ?F) 12/24/21627 SpO2 [...] 11pm the evening prior to surgery. - nzhbpwnrsdj-ickccebvp-bvp anter (TRELEGY ELLIPTA) 100-62.5-25 mcg Inhale 1 [...] December 24, 2021 TIME: 7:27 AM CSN: [id number] [facility] BRIEF OP NOTon 12-24-2021 BRIEF OP NOT HNO ID: [id number] Author: Jenifer Ayala MD Service: Colorectal Author Type: Fellow Type: Brief Op Note Filed: 12/24/2021 12:16 PM Note Text: BRIEF OPERATIVE NOTE - COLORECTAL SURGERY Log ID: [id number] Surgery/Procedure Date: 12/24/2021 Incision/Procedure Start Time: 8:50 AM Incision Close/Procedure End Time: Surgeon(s) and Market Gardener(s): Surgeon(s) and Role: Panel 1: * Mary [...] DATE: December 24, 2021 TIME: 12:10 PM [facility] NURSING PROGon 12-24-2021 NURSING PROG HNO ID: [id number] Author: Marilyn Henning RN Service: ? Author Type: Registered Nurse Type: Nursing Progress Note Filed: 12/24/2021 6:36 PM Note Text: Nursing Progress Note Patient Name: Mary Leal Patient Location: [place] [address]/YE3T-62 Daily Note: 1816 Pt arrived on floor with 100.2F temperature. Scheduled tylenol administered. Temperature 98.6 at 1816. Surgical incisions VENEER LATHE OPERATOR with glue, intact. Ostomy beefy red, producing sweat. Call remains in place. Pt Educated on FINISHING AND SHIPPING SUPERVISOR pump usage. Daughter bedside. Bed low and locked. This note was completed by: Marilyn Henning [facility] NURSING PROG HNO ID: [id number] Author: Marilyn Henning RN Service: ? Author Type: Registered Nurse Type: Nursing Progress Note Filed: 12/24/2021 4:19 PM Note Text: Nursing Progress Note Patient Name: Mary Leal Patient Location: [place] [address]/LB4D-99 Transfer Note: Patient transferred into room/unit PK3-33 in stable condition. Actions taken: No futher actions taken at this time. Will continue to monitor and check with patient. This note was completed by: Marilyn Henning [facility] NURSING PROG HNO ID: [id number] Author: Dianelys Lopez RN Service: Nursing Author [...] (RECOMMENDATION): None Electronically Signed By: Dianelys Lopez [facility] OPERATIVE NOon 12-24-2021 OPERATIVE NO HNO ID: [id number] Author: Mary Obrien MD Service: Colorectal Author Type: Physician Type: Operative Report Filed: 12/24/2021 12:34 PM Note Text: COLON AND RECTAL SURGERY OPERATIVE REPORT PATIENT NAME: Mary Leal ADMISSION DATE: 12/24/2021 LOG ID: [id number] SURGERY/PROCEDURE DATE: 12/24/2021 INCISION/PROCEDURE START TIME: 8:50 AM INCISION CLOSE/PROCEDURE END TIME: AGE: [age] year old SEX: female SURGEON(S)/PROCEDURALIST( S) AND SHEATHER(S): Surgeon(s) and Role: Panel 1: * Mary [...] port site. This was ligated with a phjkia-kb-xvxlb Vicryl suture and was confirmed to be [...] above. Mary Obrien, (more content not included)... [facility] OPERATIVE NO HNO ID: [id number] Author: Pam Wang MD Service: Urogynecology Author Type: Physician Type: Operative Report Filed: 12/28/2021 10:03 AM Note Text: OPERATIVE/PROCEDURE REPORT LOG ID: [id number] SURGERY/PROCEDURE DATE: 12/24/2021 INCISION/PROCEDURE START TIME: 8:50 AM INCISION CLOSE/PROCEDURE END TIME: 1:50 PM SURGEON(S)/PROCEDURALIST( S) AND SHEATHER(S): Surgeon(s) and Role: Panel 1: * Mary [...] of the (more content not included)... Normal [facility] Type and SCR (30D)on 022 ABO/RH(D) Positive Normal [facility] Comment on above: Performed By: #### T SCR30 ####[facility] [place], [place] [phone] Confirm Blood Typeon 021 ABO/RH(D) Positive Normal [facility] Comment on above: Performed By: #### C ONABO ####[facility] [place], [place] [phone] Type and SCR (30D)on ABO/RH(D) Positive Normal [facility] Comment on above: Performed By: #### T SCR30 ####[facility] [place], [place] [phone] Nonvisit Note - PTon Nonvisit Note - PT Chart reviewed with eval prepped for scheduled eval. KK [facility] Consenton 01-08-2021 Consent [id number]#1.00CD:1 27 [facility] Coding Summary.on 01-06-2021 Coding Summary. CODING DATE: FINAL [facility] DS[facility] STATUS: Home (Routine DC) PAYOR: Medicaid EAPG [...] Eileen Scott Date Saved: 01/06/2021 09:01 am [facility] Consent for Procedure/Surger yon 01-04-2021 Consent for Procedure/Surgery [id number]#1.00CD:1 27 [facility] Consent for Procedure/Surgery [id number]#1.00CD:1 27 [facility] Consent for Treatmenton 03-0 Consent for Treatment [id number]#1.00CD:12 7 [facility] Discharge Instructionson Discharge Instructions [id number]#1.00CD:1 27 Normal [facility] Inpatient Patient Summaryon 01-04-2021 Inpatient Patient Summary [place] [id number] Clinical Summary Person Information Name: MARY LEAL Age: 50 Years : 1970 Sex: Female PCP: Isatu GÓMEZ DO Marital Status: Race: White Ethnicity: Non- or Language: Hong [place]er Visit Id: Visit Reason: MIXED INCONTINENCE Speciality: Acuity: Enc Type: Outpatient Med Service: Surgery Arrival: 01/04/2021 12:31:00 Discharge: Dispo Type: Address: [address] [place] [address] [phone] Provider Notes: Diagnosis: Problems Active Decreased bladder [...] Documented This Visit Final Med List: acetaminophen-hydrocodone (Falls 5/325 Tab) By Mouth every 6 hours. [...] up: With: Address: When: Clifford OCONNOR [facility], [address], [place] [id number] Business (1) Within 2 weeks Comments: Call for followup appointment. Have a great day! Patient Education Information: EU - Cystoscopy with Botox Injection Discharge Instructions (Custom) [facility] IntraOperative Documentson 0 01-04-2021 IntraOperative Documents [id number]#1.00CD:1 27 [facility] IntraOperative Documents [id number]#1.00CD:1 27 [facility] Main OR Intraoperative Recor don 01-04-2021 Main OR Intraoperative Record IntraOp Document Type FTURO Summary Primary Physician: Clifford OCONNOR MD Finalized Date/Time: 01/04/21 13:27:05 Pt. Name: MARY LEAL Ludmila Matamoros./Sex: 1970 Female Med Rec #: [id number] Physician: Clifford OCONNOR MD Financial #: [id number] Pt. Type: O Room/Bed: / Admit/Disch: 01/04/21 12:31:00 - Institution: Case Times FTURO Entry 1 Patient Times In Room 01/04/21 13:07:00 Out Room 01/04/21 13:27:00 Procedure Times Start 01/04/21 13:19:00 Stop 01/04/21 13:23:00 Anesthesia Times Last Modified By: Niecy Tran RN 01/04/21 13:27:01 Case Attendance FTURO Entry 1 Entry 2 Entry 3 Case Attendee Clifford OCONNOR MD, CST, Foster M Debi Mejias CST Role Performed Surgeon - Primary Scrub - [...] 13:27:02 01/04/21 13:27:02 Entry 4 Case Attendee Neicy Tran RN Role Performed Se[employer] Computer - Primary Time In 01/04/21 13:07:00 Time Out 01/04/21 13:27:00 Procedure CYSTOSCOPY LOCAL BOTOX INJECTION(.) Comments Last Modified By: Niecy Tran RN 01/04/21 13:27:02 Surgical Procedures FTURO Entry 1 Procedure Description Procedure CYSTOSCOPY LOCAL BOTOX Modifiers . INJECTION Surgeon Description CYSTOSCOPY BOTOX 50 UNITS LOT NUMBER [id number] EXP DATE 08/2023 Primary Procedure Yes Primary [...] PECK, Akin Cavazos, Applicable) Debi Mejias CST, Niecy Tran RN [...] By: Niecy Tran RN 01/04/21 13:27 Normal [facility] Main OR Preoperative Recordo n 01-04-2021 Main OR Preoperative Record Holding Area Document Type FTURO Summary Primary Physician: Clifford OCONNOR MD Finalized Date/Time: 01/04/21 13:05:55 Pt. Name: MARY LEAL/Sex: 1970 Female Med Rec #: [id number] Physician: Clifford OCONNOR MD Financial #: [id number] Pt. Type: O Room/Bed: / Admit/Disch: 01/04/21 [...] RN Reviewed Yes Last Modified By: Niecy Tarn RN 01/04/21 13:05:55 General Comments: Temp. 36.1 Finalized By: Niecy Tran RN Document Signatures Signed By: Annmarie Alves LPN 01/04/21 12:46 Niecy Tran RN 01/04/21 13:05 Normal [facility] Operative Reporton Operative Report Patient: ERNESTO [...] arranged, F/U in two weeks. . Normal [facility] Comment on above: Result Comment: Elec tronically Signed By: Clifford OCONNOR MD\.br\Date and Time Signed: 01/04/21 13:30 EST Outpatient Surgery Discharge Instructionon 01-04-2021 Outpatient Surgery Discharge Instruction [address] [address] Patient Discharge Instructions PERSON INFORMATION [...] 911 Follow up: With: Address: When: Clifford [address], [address], [place] [phone] [facility] (1) Within 2 weeks Comments: [...] to serve you. Thank you for choosing [facility] Normal [facility] PT - Assessmentson 1 PT - Assessments [id number]#1.00CD:1 27 Normal [facility] Ambulatory Clinical Summaryo n 11-11-2020 Ambulatory Clinical Summary {[id number]-[id number]-00-oy-4d-ff- 25-69-1j-73-70-n3-c9-f1}C D:[id number] Normal [facility] Patient Educationon 11-11-19 21 Patient Education [...] your urinary (more content not included)... Normal [facility] U[facility] Phone Visit- Telehealth HPI [...] only communication with the patient located at [facility] E [facility] [phone] , with no one else. If it [...] BENSON, Dawna Feldman [address] [place] [address]- [phone] Additional Instructions: Patient Education Urodynamic Testing Overactive Bladder, Adult IChristy , personally scribed for Dr. Marmolejo on [...] urine stream His (more content not included)... [facility] Comment on above: Result Comment: Elec tronically Signed By: Dawna Marmolejo MD\.br\Date and Time Signed: 11/03/20 11:59 EST\.br\Electronically Co-Signed By: Christy Gill MA\.br\Date and Time Co-Signed: 10/21/20 12:01 EST Coding Summary.on 10-28-2020 Coding Summary. CODING DATE: 020 FINAL [facility] STATUS: Home (Routine DC) PAYOR: Medicaid [...] Eileen Scott Date Saved: 10/28/2020 11:17 am [facility] Ambulatory Clinical Summaryo n 10-27-2020 Ambulatory Clinical Summary {[id number]-[id number] wi-c9-l5-32-40-60-c6-e5}C D:[id number] [facility] Consent for Procedure/Surger yon 10-27-2020 Consent for Procedure/Surgery [id number]#1.00CD: 127 [facility] Consent for Treatmenton 10-07 Consent for Treatment [id number]#1.00CD:12 7 [facility] IntraOperative Documentson 1 12-28-2019 IntraOperative Documents [id number]#1.00CD: 127 Normal [facility] Patient Educationon 10-21-20 Patient Education Family Medicine [...] lab or depar (more content not included)... [facility] PT - Assessmentson 0 PT - Assessments [id number]#1.00CD:1 27 [facility] Nonvisit Note - PTon 020 Nonvisit Note - PT Per voicemail: she n eeds to cancel all of her PT due to personal reasons. KK [facility] Provider Letteron 09-09-2020 Provider Letter (Inserted Image. Jessica ble to display) September 09, 2020 MARY LEAL [address] [place] [address] MARY LEAL 1970 Dear Mary Leal, You [...] appreciate your understanding. Sincerely, [facility] [address] [facility], [place] [address] [facility] PT - Assessmentson 0 PT - Assessments [id number]#1.00CD:1 27 [facility] PT - Assessments [id number]#1.00CD:1 27 [facility] PT - Assessmentson 0 PT - Assessments [id number]#1.00CD:1 27 [facility] PT - Consentson 08-31-2020 PT - Consents [id number]#1.00CD:1 27 [facility] Pre-Certification Formon Pre-Certification Form [id number]#1.00CD:12 7 [facility] Pre-Certification Form [id number]#1.00CD:12 7 [facility] Consent for Procedure/Surger yon 08-26-2020 Consent for Procedure/Surgery [id number]#1.00CD:12 7 [facility] Ambulatory Clinical Summaryo n 08-25-2020 Ambulatory Clinical Summary {[id number]-c1-40-7c- 21-ai-2k-35-18-a2-7d-25}C D:[id number] [facility] Patient Educationon 08-25-20 Patient Education Family Medicine [...] an extended amount of time. Only take [id number]-[id number] or prescription medicines for pain, discomfort, or [...] Document Reviewed: 09/07/2009 ExitCare? Patient Information ?2013 Serviceful. [facility] Urology Office/Clinic Noteon 08-25-2020 Urology Office/Clinic [...] Alzheimer's disease: Mother. Hypertension: Mother and Father. [facility] Comment on above: Result Comment: Elec tronically Signed By: Dawna Marmolejo MD\.br\Date and Time Signed: 08/25/20 10:06 EDT\.br\Electronically Co-Signed By: Mary Hager\.br\Date and Time Co-Signed: 08/25/20 09:51 EDT Coding Summary.on 08-21-2020 Coding Summary. CODING DATE: 020 FINAL [facility] STATUS: PAYOR: Medicaid EA DESCRIPTION 0271 PHYSICAL THERAPY ADMIT DX: REASON FOR VISIT DX: R27.9 Unspecified lack of coordination FINAL DX: PRINCIPAL: R27.9 Unspecified lack of coordination SECONDARY: N94.89 Other specified conditions associated with female genital organs and menstrual cycle N39.3 Stress incontinence (female) (male) PYMT PROC [facility] STAT DESCRIPTION DOCTOR NAME DATE NOTE: The code number assigned matches the documented diagnosis and / or procedure in the patient's chart. However, the narrative phrase printed from the coding software may appear abbreviated, or result in slightly different terminology. Coded By: Brittanie Raymond CphT Date Saved: 08/21/2020 10:42 am [facility] Consenton 08-21-2020 Consent [id number]:12 7 [facility] Ambulatory Clinical Summaryo n 08-19-2020 Ambulatory Clinical Summary {[id number] D:[id number] [facility] Ambulatory Clinical Summary {[id number] D:[id number] [facility] Nonvisit Note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 Comment on above: Returning Nurse Call Start: 12-01-2022 End: 12-02-2022 ambulatory NIECY DURON Facility: Start: 11-30-2022 End: 11-30-2022 ambulatory ELICEO GÓMEZ JR Facility:[facility] Start: 11-30-2022 End: 11-30-2022 ambulatory Isra Masters DO Work Phone: Gastroenterology Comment on above: Chronic idiopathic c onstipation (Primary Dx); Nausea Start: 11-30-2022 End: 11-30-2022 Telemedicine consultation with patient Isra Masters DO Work Phone: [employer] [facility] Start: 11-24-2022 ambulatory Isra rios DO Work Phone: Gastroenterology Comment on above: SMART PILL RESULTS Approval for upcomin g pap titration test Start: 11-24-2022 Telephone encounter Yoni Tuttle MD Work Phone: Neurology Comment on above: Is PA Needed for PAP Titration Start: 11-22-2022 Telephone encounter Isra Masters DO Work Phone: Gastroenterology Comment on above: Patient Update Start: 11-21-2022 End: 11-21-2022 ambulatory Yoni Tuttle MD Work Phone: Pre Anesthesia Comment on above: Pre-op exam (Primary Dx); Primary hypertension; Mild persistent asthma without complication; Gastroparesis; CHUCKIE (obstructive sleep apnea) Orders Start: 11-21-2022 End: 11-21-2022 Admission to [facility] Work Phone: [facility] Start: 11-21-2022 End: 11-21-2022 Preprocedural examination done [facility] 2 Work Phone: Pre Anesthesia Start: 11-17-2022 ambulatory Annmarie Gillespie RN Gastroe nterology Start: 11-17-2022 Patient encounter procedure Annmarie Gillespie RN [facility] Start: 11-17-2022 End: 11-17-2022 Subsequent hospital visit by physician Capsule Work Phone: Gastroenterology Start: 11-16-2022 ambulatory Yoni Tuttle MD Work Phone: NEUROLOGY Comment on above: The delay Start: 11-15-2022 ambulatory Yoni Tuttle MD Work Phone: NEUROLOGY Comment on above: Labs Start: 11-14-2022 End: 11-15-2022 ambulatory NIECY DURON Facility:H1 Start: 11-10-2022 Telephone encounter Annmarie Gillespie RNetl informatica architect Comment on above: [employer] Start: 11-10-2022 End: 11-11-2022 ambulatory NIECY DURON Facility:H1 Start: 11-09-2022 Telephone encounter Yoni Tuttle MD Work Phone: Neurology Comment on above: Orders (SENT PATIENT S IRON RX ) Patient Update Start: 11-02-2022 Telephone encounter Yoni Tuttle MD Work Phone: Neurology Comment on above: Results - Sleep Stud y Start: 10-31-2022 ambulatory Yoni Tuttle MD Work Phone: NEUROLOGY Comment on above: Iron test Smart pill Start: 10-24-2022 Telephone encounter Isra Masters DO Work Phone: Gastroenterology Comment on above: Patient Question Start: 10-23-2022 [facility] Start: 10-20-2022 End: 10-20-2022 ambulatory Isra [...] Start: 10-17-2022 End: 10-18-[address] Isatu GÓMEZ Facility:H1 Start: 10-14-2022 End: 10-14-2022 ambulatory DO Shannon Gómez Work Phone: [facility] Work Phone: Start: 10-14-2022 End: 10-14-2022 Discharged Recurring DO Shannon Gómez Work Phone: [place] [place] Work Phone: Start: 10-13-2022 End: 10-14-2022 ambulatory SADE WILDE Facility:H1 Start: 10-13-2022 End: 10-14-2022 Encounter for preprocedural laboratory examination SADE Kenny [facility] Facility:H1 Start: 10-11-2022 End: 10-11-2022 ambulatory Annette Cartagena Other [employer] Other Start: 10-11-2022 Telephone encounter Annette Cartagena [facility] Start: 10-11-2022 End: 10-11-2022 Patient encounter procedure Isra Masters DO Work Phone: Gastroenterology Comment on above: Gas bloat syndrome ( Primary Dx); Chronic idiopathic constipation; Gastroparesis Start: 10-10-2022 End: 10-10-2022 ambulatory Annette Cartagena Other [employer] Other Start: 10-10-2022 Office outpatient ne w 30 minutes Annette Cartagena [facility] Start: 10-06-2022 End: 10-06-2022 ambulatory Annette Harris Other [employer] Other Start: 10-06-2022 Patient encounter procedure Annette Harris [facility] [place] Start: 09-28-2022 Encounter for other preprocedural examination SADE Kenny [facility] Start: 09-28-2022 Encounter for preprocedural cardiovascular examination SADE Kenny [facility] Start: 09-26-2022 End: 09-27-2022 ambulatory SADE WILDE Facility:H1 Start: 09-22-2022 Office outpatient vi sit 25 minutes Annette Harris [facility] [place] Start: 09-22-2022 Telephone encounter Annette Harris FP [facility] [place] Start: 09-22-2022 End: 09-22-2022 ambulatory DO Shannon Gómez Work Phone: [employer] Other Start: 09-22-2022 End: 09-22-2022 Patient encounter procedure DO Shannon Gómez Work Phone: [facility] Start: 09-14-2022 End: 09-14-2022 ambulatory Eliceo Szymanskileigha Other [employer] Other Start: 09-14-2022 Encounter by sierra Gómez [facility] [place] Start: 09-14-2022 Office outpatient vi sit 15 minutes Annette Harris [facility] [place] Start: 09-14-2022 Telephone encounter Annette Harris FP [facility] Start: 08-16-2022 ambulatory Mary Obrien MD Work Phone: Colorectal Surgery Comment on above: CT results Ct scan result quest ion Start: 08-16-2022 E-mail encounter kendra m caregiver Mary Obrien MD Work Phone: [facility] Start: 08-12-2022 End: 08-12-2022 Subsequent hospital visit by physician Ct Prep [facility] Start: 07-27-2022 End: 07-28-2022 ambulatory [facility] Facility: Start: 07-26-2022 Telephone encounter Isra Masters DO Work Phone: Gastroenterology Comment on above: Medication Problem; Medication 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 (PA for Dexlansoprazole) Start: 07-26-2022 End: 07-26-2022 Patient encounter procedure Mary Obrien MD Work Phone: Colorectal Surgery Comment on above: Follow-up examinatio n after colorectal surgery (Primary Dx); Periumbilical abdominal pain; Outlet dysfunction constipation; Colonic inertia Start: 06-08-2022 (Procedure) Short Annette Harris [facility] Start: 06-08-2022 End: 06-08-2022 ambulatory Annette Harris Other [employer] Other Start: 05-30-2022 Refill Mary Obrien MD Work Phone: Colorectal Surgery Comment on above: Refill Request Start: 05-26-2022 End: 05-26-2022 ambulatory Annette Pradeeptonia Other [employer] Other Start: 05-26-2022 Office outpatient vi sit 25 minutes Annette Felter [facility] [place] Start: 05-12-2022 Office consultation new/estab patient 60 min Eliceo Gómez Work Phone: [facility] [facility] DO Work Phone: Start: 05-10-2022 End: 05-10-2022 ambulatory Allison Lyla Other [employer] Other Start: 05-10-2022 Office outpatient vi sit 15 minutes Allison Lyla [facility] Start: 05-03-2022 Telephone encounter Mary brewer MD Work Phone: Colorectal Surgery Comment on above: 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 Medication Preauthor ization (PA for Dexilant renewal) Outside Labs Results Start: 03-15-2022 End: 03-15-2022 Patient encounter procedure Isra Masters DO Work Phone: Gastroenterology Comment on above: Gastroesophageal ref lux disease, unspecified whether esophagitis present; Chronic idiopathic constipation Start: 03-14-2022 End: 03-14-2022 [place] [id number] Work Phone: Pre Anesthesia Comment on above: Preop examination (P rimary Dx); Attention to ileostomy ([facility]); Primary hypertension; Gastroparesis; Gastroesophageal reflux disease, unspecified whether esophagitis present; Mild persistent asthma without complication; Bipolar 1 disorder ([facility]); Obesity (BMI 30.0-34.9) Start: 03-14-2022 End: 03-14-2022 Preprocedural examination done [facility] 4 Work Phone: Pre Anesthesia Start: 02-28-2022 Telephone encounter Isra Masters DO Work Phone: Gastroenterology Comment on above: Appointment (for scr ipt refill) Start: 02-18-2022 End: 02-18-2022 Patient encounter procedure Nelsy Philippeludmila ROWAN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 Work Phone: URO/Gynecology Comment on above: Postoperative state (Primary Dx) Start: 02-11-2022 End: 02-11-2022 ambulatory Flaca Bartholomew PT Work Phone: [facility] Start: 02-11-2022 End: 02-11-2022 Follow-up encounter Flaca Bartholomew PT Work Phone: [place] [facility] Physical Therapy Comment on above: Pelvic floor dysfunc tion (Primary Dx); Lack of coordination; Follow-up examination after colorectal surgery Start: 02-09-2022 (Procedure) Win Harris [facility] Start: 02-09-2022 End: 02-09-2022 ambulatory Annette Harris Other [employer] Other Start: 02-08-2022 End: 02-08-2022 Patient encounter procedure Mary Obrien MD Work Phone: Colorectal Surgery Comment on above: Follow-up examinatio n after colorectal surgery (Primary Dx) Post-operative state (Primary Dx); Yeast infection of the skin Start: 02-01-2022 Refill Isra S Clin e DO Work Phone: Gastroenterology Comment on above: Refill Request (dexl ansoprazole) Start: 01-31-2022 End: 01-31-2022 ambulatory Newton Woodward PT Work Phone: [facility] Start: 01-31-2022 End: 01-31-2022 Follow-up encounter Newton Woodward PT Work Phone: [facility] Physical Therapy Comment on above: Pelvic floor dysfunc tion (Primary Dx); Lack of coordination; Follow-up examination after colorectal surgery Start: 11-25-2021 End: 11-25-2021 ambulatory Annette Harris Other [employer] Other Start: 11-25-2021 Office outpatient vi sit 25 minutes Annette Harris [facility] [place] Start: 11-17-2021 End: 11-18-2021 ambulatory [facility] Start: 10-20-2021 End: 10-20-2021 ambulatory Annette Harris Other [employer] Other Start: 10-20-2021 Office outpatient vi sit 25 minutes Annette Harris [facility] [place] Start: 10-13-2021 (Procedure) Short Annette Harris [facility] Start: 10-13-2021 End: 10-13-2021 ambulatory Annette Harris Other [employer] Other Start: 09-06-2021 Office outpatient vi sit 25 minutes Annette Harris [facility] [place] Start: 08-19-2021 Office outpatient vi sit 15 minutes Erica Kingston [facility] Start: 08-13-2021 Office outpatient vi sit 15 minutes Tita Daugherty [facility] Start: 08-12-2021 Office outpatient vi sit 25 minutes Annette Harris [facility] [place] Start: 07-28-2021 Office outpatient vi sit 25 minutes Annette Harris [facility] [place] Procedures Date Procedure Procedure Detail Performing Clinician Start: 11-23-2023 Radionuclide imaging of liver and/or biliary tract using radioactive isotope DO Shannon Gómez Work Phone: Start: 10-23-2023 Follow-up visit Follow-up SANGITAYAHIR CHRISTENSEN Start: 10-23-2023 Adult depression scr eening assessment Patricia Zamora Start: 08-12-2023 Assay of troponin quantitative eLv Ritter APRN [facility] Work Phone: Start: 08-12-2023 Ct abdomen & pelvis w/contrast material Lev Ritter APRN [facility] Work Phone: Start: 08-12-2023 Urnls dip stick/tabl et reagent auto microscopy Lex Salmon MD Work Phone: Start: 08-12-2023 Basic metabolic pane l calcium total Lex Salmon MD Work Phone: Start: 08-12-2023 DARK GREEN TOP Lex buitrago MD Work Phone: Start: 08-12-2023 GOLD TOP Lex bacon MD Work Phone: Start: 08-12-2023 Hepatic function panel Lev Ritter APRN [facility] Work Phone: Start: 08-12-2023 LIGHT BLUE TOP [...] et rgnt auto w/o microscopy Nelsy Chávez BOX STAPLER.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 Work Phone: Start: 06-05-2023 Plain chest X-ray DO Shannon Gómez Work Phone: Start: 03-02-2023 Aerobic microbial culture DO Shannon Gómez Work Phone: Start: 12-26-2022 Radiologic exam esop hagus single contrast study Winston Hannah DO Work Phone: Start: 09-22-2022 Plain X-ray of bilat eral shoulders DO Shannon Gómez Work Phone: Start: 09-22-2022 X-ray of both knees DO Shannon Gómez Work Phone: Start: 09-14-2022 Mammography Lex rincon MD Work Phone: Start: 03-02-2022 Lipid 1996 panel - S jay or Plasma Nelsy Chávez BOX STAPLER.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 Work Phone: Start: 02-08-2022 Urnls dip stick/tabl et rgnt auto w/o microscopy Magali Mitchell BOX STAPLER.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 Work Phone: Start: 12-16-2021 Antibody screen Comment on above: Performed By: #### T [id number] ####[address] [phone] Start: 10-15-2021 Antibody screen Comment on above: Performed By: #### T [id number] ####[address] [phone] Start: 06-28-2021 Mammography Mary brewer MD Work Phone: Start: 02-18-2021 H/O: surgery S/P nasal septoplasty C estephania Zamora Start: 02-18-2021 History of tonsillectomy S/P tonsill ectomy Patricia Hissem Colonoscopy Eliceo R Kaftan Work Phone: Hysterectomy Eliceo Gómez Work Phone: Ligation of fallopian tube G eorbahman Gómez Work Phone: Operation on colon Eliceo Gómez Work Phone: Operation on rectum Eliceo Gómez Work Phone: Operative procedure on foot Eliceo Gómez Work Phone: Operative procedure on hand Eliceo Gómez Work Phone: Operative procedure on knee Eliceo Gómez Work Phone: Procedure on neck Eliceo roberson Work Phone: Repair of musculoten dinous cuff of shoulder Eliceo Gómez Work Phone: Tonsillectomy and adenoidectomy Eliceo Gómez Work Phone: Plan of Treatment Date Care Activity Detail Author Start: 06-22-2030 Administration of diphtheria + tetanus + acellular pertussis vaccine DTAP/TDAP/TD VACCINE (2 - Td or Tdap) [facility] Start: 06-22-2030 DTaP,Tdap and Td Vaccines (2 - Td or Tdap) DTaP,Tdap and Td Vaccines (2 - Td or Tdap) [facility] Start: 06-22-2030 Urine microalbumin profile DTaP,Tdap,Td Vaccine (2 - Td or Tdap) [facility] Start: 12-05-2027 COLORECTAL CANCER SCREENING COLORECTAL CANCER SCREENING [facility] Start: 12-05-2027 SIGMOIDOSCOPY SIGMOIDOSCOPY [facility] Start: 03-02-2027 Lipid 1996 panel - S jay or Plasma Lipid Screening [facility] Start: 03-02-2027 LIPID SCREEN LIPID SCREEN [facility] Start: 04-05-2025 DIABETES SCREEN DIABETES SCREEN [facility] Start: 04-05-2025 Diabetes Screening Diabetes Screenin g [facility] Start: 03-14-2025 DIABETES SCREEN DIABETES SCREEN [facility] Start: 12-26-2024 DIABETES SCREEN DIABETES SCREEN [facility] Start: 10-23-2024 Adult BMI Screening Adult BMI Screen ing [facility] Start: 10-23-2024 Depression Screening Depression Scre ening [facility] Start: 10-23-2024 Tobacco Screening Tobacco Screening [facility] Start: 04-18-2024 End: 04-18-2024 Patient encounter procedure 04/18/2024 1:30 PM EDT Office Visit [facility] [address] [place] [address] [phone] Pauline Christensen MD [address] [address], [phone] [place] [id number] [facility] Start: 09-27-2023 End: 12-27-2023 Bacteria identified in Urine by Culture URINE CULTURE Microbiology Routine Burning with urination Expected: 09/27/2023, Expires: 12/27/2023 [facility] Work Phone: Comment on above: Expected: 09/27/2023 , Expires: 12/27/2023 Start: 09-14-2023 Screening for malign ant neoplasm of breast MAMMOGRAM [facility] Start: 08-01-2023 FUV, Provider: Dipti Anaya, Status: Pen, Time: 11:00 AM FUV, Provider: Dipti Anaya, Status: Pen, Time: 11:00 AM [facility] DO Work Phone: Start: 07-07-2023 Covid-19 Vaccine ( season) Covid-19 Vaccine ( season) [facility] Start: 07-07-2023 Influenza vaccination [facility] Start: 07-07-2023 Influenza vaccinatio n given INFLUENZA VACCINE (#1) [facility] Start: 06-05-2023 [facility] Start: 04-22-2023 BP CONTROLLED (<130/80) BP CONTROLLE D (<130/80) [facility] Start: 03-14-2023 BP CONTROLLED (<130/80) BP CONTROLLE D (<130/80) [facility] Start: 02-18-2023 BP CONTROLLED (<130/80) BP CONTROLLE D (<130/80) [facility] Start: 02-08-2023 BP CONTROLLED (<130/80) BP CONTROLLE D (<130/80) [facility] Start: 01-18-2023 BP CONTROLLED (<130/80) BP CONTROLLE D (<130/80) [facility] Start: 11-06-2022 DEPRESSION ASSESSMENT DEPRESSION ASS ESSMENT [facility] Start: 09-22-2022 [facility] Start: 08-02-2022 End: 08-25-2023 Ct abdomen & pelvis w/contrast material CT ABD/PEL W IVCON Radiology Routine Periumbilical abdominal pain Expected: 08/02/2022, Expires: 08/25/2023 [facility] [facility] Work Phone: Comment on above: Expected: 08/02/2022 , Expires: 08/25/2023 Start: 07-07-2022 Influenza vaccination [facility] Start: 06-28-2022 Mammography [facility] Start: 2022 Administration of varicella zoster vaccine Zoster (Shingles) Vaccine (1 of 2) [facility] Start: 2022 COVID-19 VACCINE (4 - Booster for Pfizer series) COVID-19 VACCINE (4 - Booster for Pfizer series) [facility] Start: 2022 SHINGRIX VACCINE (1 of 2) SHINGRIX VACCINE (1 of 2) [facility] Start: 2022 Zoster vaccine hzv l annika for subcutaneous use ZOSTER (SHINGLES) VACCINE (1 of 2) [facility] Start: 04-01-2022 End: 06-01-2022 CBC W Auto Differential panel - Blood CBC + DIFF Lab Routine Follow-up examination after colorectal surgery Expected: 04/01/2022, Expires: 06/01/2022 [facility] Work Phone: Comment on above: Expected: 04/01/2022 , Expires: 06/01/2022 Start: 04-01-2022 End: 06-01-2022 Comprehensive metabolic 2000 panel - Serum or Plasma COMP METABOLIC PANEL Lab Routine Follow-up examination after colorectal surgery Expected: 04/01/2022, Expires: 06/01/2022 [facility] Work Phone: Comment on above: Expected: 04/01/2022 , Expires: 06/01/2022 Start: 04-01-2022 End: 06-01-2022 TYPE AND SCREEN,30 DAY TYPE AND SCREEN,30 DAY Blood Bank Routine Follow-up examination after colorectal surgery Expected: 04/01/2022, Expires: 06/01/2022 [facility] Work Phone: Comment on above: Expected: 04/01/2022 , Expires: 06/01/2022 Start: 01-19-2022 COVID-19 VACCINE (4 - Booster for Pfizer series) COVID-19 VACCINE (4 - Booster for Pfizer series) [facility] Start: 01-19-2022 COVID-19 VACCINE (4 - Pfizer series) COVID-19 VACCINE (4 - Pfizer series) [facility] Start: 11-06-2021 DEPRESSION ASSESSMENT DEPRESSION ASS ESSMENT [facility] Start: 07-07-2021 Influenza vaccination INFLUENZA (#1) [facility] Start: 2017 COLOGUARD (FIT-DNA) COLOGUARD (FIT-D NA) [facility] Start: 2017 Colonoscopy COLONOSCOPY [facility] Start: 2017 COLORECTAL CANCER SCREENING COLORECTAL CANCER SCREENING [facility] Start: [address] COLONOGRAPHY [facility] Start: 2017 FECAL OCCULT BLOOD FECAL OCCULT BLOO D [facility] Start: 2017 LIPID SCREEN LIPID SCREEN [facility] Start: 2017 Screening for malign ant neoplasm of colon [facility] Start: 2017 SIGMOIDOSCOPY SIGMOIDOSCOPY [facility] Start: 2012 Mammography MAMMOGRAM [facility] Start: 10-11-2008 Hepatitis B Vaccine (3 of 3 - 19+ 3-dose series) Hepatitis B Vaccine (3 of 3 - 19+ 3-dose series) [facility] Start: 2002 HPV TESTING HPV TESTING [facility] Start: 1993 PAP TESTING PAP TESTING [facility] Start: 1991 Urine microalbumin profile [facility] Start: 1990 Adult BMI Follow Up Plan Adult BMI Follow Up Plan [facility] Start: 1990 ANNUAL PCP TEAM SENIOR AUDIT MANAGER ALEKSANDAR DISEASE VISIT ANNUAL PCP TEAM CHRONIC DISEASE VISIT [facility] Start: 1990 ANNUAL WELLNESS VISIT ANNUAL WELLNES S VISIT [facility] Start: 1990 BP CONTROLLED (<130/80) BP CONTROLLE D (<130/80) [facility] Start: 1990 HEPATITIS C SCREENING HEPATITIS C SC REENING [facility] Start: 1990 HIV SCREENING HIV SCREENING [facility] Start: 1984 Adult depression screening assessment DEPRESSION SCREENING [facility] Start: 1984 Depression screening using PHQ-9 (Patient Health Questionnaire 9) score DEPRESSION SCREENING [facility] Start: 1978 PNEUMOCOCCAL (1 - PCV) PNEUMOCOCCAL (1 - PCV) [facility] Start: 1978 Pneumococcal vaccination Pneum ococcal Vaccine (1 - PCV) [facility] Start: 1972 HEPATITIS B (1 of 3 - 3-dose series) HEPATITIS B (1 of 3 - 3-dose series) [facility] Start: 1972 Hepatitis B Vaccine (1 of 3 - 3-dose series) Hepatitis B Vaccine (1 of 3 - 3-dose series) [facility] Start: 1972 HPV/COTEST HPV/COTEST [facility] Start: 1972 Screening for malign ant neoplasm of cervix [facility] 12 lead ECG EKG 12 lead ECG REYNA [facility] CT Abdomen and Pelvi s W contrast IV CT Abdomen / Pelvis With IV Contrast ONLY Imaging STAT 08/12/2023 5:42 AM [facility] End: 01-12-2024 EGD - THERAPEUTIC, EUS, OR TUBE INTERVENTIONS EGD - THERAPEUTIC, EUS, OR TUBE INTERVENTIONS Endoscopy Routine Gastroparesis 1 Occurrences starting 01/11/2023 until 01/12/2024 [facility] Work Phone: Comment on above: 1 Occurrences starti ng 01/11/2023 until 01/12/2024 FAT, FECAL QUAL FAT, FECAL QUAL Lab Routine Diarrhea due to malabsorption Ordered: 03/15/2023 [facility] Work Phone: Comment on above: Ordered: 03/15/2023 End: 10-11-2023 Gi transit & pres ravinder wireless capsule w/interp CAPSULE ENDOSCOPY SMART Endoscopy Routine Gastroparesis 1 Occurrences starting 10/11/2022 until 10/11/2023 [facility] Work Phone: Comment on above: 1 Occurrences starti ng 10/11/2022 until 10/11/2023 End: 12-17-2023 PAP TITRATION PSG (CPAP, BIPAP, ASV) PAP TITRATION PSG (CPAP, BIPAP, ASV) Procedures Routine CHUCKIE (obstructive sleep apnea) 1 Occurrences starting 11/17/2022 until 12/17/2023 [facility] Work Phone: Comment on above: 1 Occurrences starti ng 11/17/2022 until 12/17/2023 Patient Education Chest Pain, Adult ED [facility] Work Phone: Patient referral [facility] Work Phone: SARS-CoV-2 (COVID-19 ) RNA [Presence] in Respiratory specimen by JOSÉ MIGUEL with probe detection SELF CHECK COVID Microbiology Routine Follow-up examination after colorectal surgery Ordered: 02/09/2022 [facility] Work Phone: Comment on above: Ordered: 02/09/2022 End: 11-30-2023 SIGMOIDOSCOPY SIGMOIDOSCOPY Endoscopy Routine Chronic idiopathic constipation 1 Occurrences starting 11/30/2022 until 11/30/2023 [facility] Work Phone: Comment on above: 1 Occurrences starti ng 11/30/2022 until 11/30/2023 End: 08-12-2023 Troponin I.cardiac [Mass/volume] in Serum or Plasma Troponin I (One time) Lab Timed Once for 1 Occurrences starting 08/12/2023 until 08/12/2023 [facility] Work Phone: Comment on above: Once for 1 Occurrenc es starting 08/12/2023 until 08/12/2023 URODYNAMICS WHI URODYNAMICS WHI Procedures Routine Incomplete bladder emptying Urinary urgency Urinary frequency Nocturia Ordered: 07/31/2023 [facility] Work Phone: Comment on above: Ordered: 07/31/2023 [facility] Immun[facility] Immunization Date Immunization Notes Care Provider Shante fang 08-17-2022 influenza virus vaccine, unspecified formulation Nelsy Chávez APRN.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 Work Phone: [facility] 11-24-2021 Pfizer-BioNTech COVID-19 Vacc 30 MCG/0.3ML Intramuscular Suspension Eliceo Gómez Work Phone: [facility] 250 DO Work Phone: 08-19-2021 KENALOG - 10 mg [employer] Other [facility] [employer] Other 05-11-2021 Pfizer-BioNTech COVID-19 Vacc 30 MCG/0.3ML Intramuscular Suspension Eliceo Gómez Work Phone: [facility] 250 DO Work Phone: 04-20-2021 Pfizer-BioNTech COVID-19 Vacc 30 MCG/0.3ML Intramuscular Suspension Eliceo Gómez Work Phone: [facility] 250 DO Work Phone: 09-02-2020 influenza, injectabl e, quadrivalent, preservative free Eliceo Gómez Work Phone: [facility] 250 DO Work Phone: 08-06-2020 influenza, injectabl e, quadrivalent, preservative free Eliceo Gómez Work Phone: [facility] DO Work Phone: 06-22-2020 tetanus toxoid, redu nayeli diphtheria toxoid, and acellular pertussis vaccine, adsorbed Eliceo Gómez Work Phone: [facility] [employer] 250 DO Work Phone: 02-01-2020 Toradol per 15 mg Annette Lazo papi Other [facility] [employer] Other 07-15-2018 influenza, seasonal, injectable, preservative free Eliceo Gómez Work Phone: [facility] [employer] 250 DO Work Phone: 07-14-2016 Rocephin 500 mg Annette Fernándezblanca r Other [employer] Other 05-12-2008 hepatitis B vaccine, adult dosage Eliceo Gómez Work Phone: [facility] [employer] DO Work Phone: 04-11-2008 hepatitis B vaccine, adult dosage Eliceo Gómez Work Phone: [facility] [employer] 250 DO Work Phone: Payers Date Payer Category Payer Self-pay [id number] 2021 Medicaid [place] [employer] [place] [employer] [id number] 2021-Present [phone] [address] [place] [address] Medicaid [id number] 2021 Medicaid [id number]. [id number] 1972 Unknown [id number] 2.16.840.1.330149.3.579.2.176 1972 Unknown [id number] 2.16.840.1.239031.3.579.2.593 1972 Unknown [id number] 2.16.840.1.272222.3.579.2.593 1972 Unknown [id number] 2.16.840.1.911935.3.579.2.593 1972 Unknown [id number] 2.16.840.1.486540.3.579.2.593 1972 Unknown [id number] 2.16.840.1.872766.3.579.2.593 1972 Unknown [id number] 2.16.840.1.414181.3.579.2.593 1972 Unknown [id number] 2.16.840.1.816483.3.579.2.593 1972 Unknown [id number] 2.16.840.1.345472.3.579.2.593 1972 Unknown [id number] 2.16.840.1.257621.3.579.2.593 1972 Unknown [id number] 2.16.840.1.127495.3.579.2.593 1972 Unknown [id number] 2.16.840.1.535535.3.579.2.593 1972 Unknown [id number] 2.16.840.1.830301.3.579.2.593 1972 Unknown [id number] 2.16.840.1.916233.3.579.2.593 1972 Unknown [id number] 2.16.840.1.051738.3.579.2.593 1972 Unknown [id number] 2.16.840.1.533118.3.579.2.593 1972 Unknown [id number] 2.16.840.1.364102.3.579.2.593 1972 Unknown [id number] 2.16.840.1.217131.3.579.2.593 1972 Unknown [id number] 2.16.840.1.516327.3.579.2.297 1972 Unknown [id number] 2.16.840.1.174670.3.579.2.297 1972 Unknown [id number] 2.16.840.1.424963.3.579.2.356 1972 Unknown [id number] 2.16.840.1.110856.3.579.2.356 1972 Unknown [id number] 2.16840.1.095954.3.579.2.356 1972 Unknown [id number] 2.16840.1.081738.3.579.2.1286 1972 Unknown [id number] 2.16840.1.091025.3.579.2.1259 1972 Unknown [id number] 2.16.840.1.106317.3.579.2.1259 1972 Unknown [id number] 2.16.840.1.593020.3.579.2.1259 1972 Unknown [id number] 2.16840.1.291028.3.579.2.1259 1972 Unknown [id number] 2.16.840.1.391737.3.579.2.1259 1972 Unknown [id number] 2.16.840.1.204215.3.579.2.1259 1972 Unknown [id number] 2.16.840.1.845671.3.579.2.1259 1972 Unknown [id number] 2.16.840.1.278401.3.579.2.1259 1972 Unknown [id number] 2.16.840.1.511355.3.579.2.1259 1972 Unknown [id number] 2.16.840.1.708870.3.579.2.1259 1972 Unknown [id number] 2.16.840.1.387863.3.579.2.1259 1959 Medicaid [id number] 1959 Unknown [id number] Unknown Unknown [facility] [id number] Unknown [id number] 2.16.840.1.091779.3.579.2.531 Unknown [id number] 2.16.840.1.815380.3.579.2.531 Unknown [id number] 2.16.840.1.577551.3.579.2.531 Social History Date Type Detail Facility Start: 10-08-2020 End: 09-01-2022 Tobacco smoking status NHIS Never smoked tobacco [facility] Start: 10-08-2020 End: 09-01-2022 Tobacco use and exposure Smokeless tobacco non-user [facility] Start: 01-04-2022 End: 09-27-2023 Alcohol intake Lifetime non-drinker (finding) [facility] Start: 10-08-2020 History SDOH Alcohol Frequency 1 [facility] Start: 1970 Sex Assigned At Female C [facility] Start: 01-21-2022 End: 07-26-2022 Exposure to SARS-CoV-2 (event) Not sure [facility] Start: 10-08-2020 End: 11-23-2020 Sex Assigned At [facility] Start: 10-08-2020 End: 11-23-2020 No alcohol use No alcohol use [facility] Comment on above: 3 TEA WEEK; How often to you hav e a drink containing alcohol? Never [facility] Average Number of Drinks Not on file [facility] Start: 07-28-2020 Gender identity Identifies as female gender (finding) [facility] Start: 07-03-2021 Sexual orientation Heterosexual (keon ribeiro) [facility] Start: 06-05-2023 End: 06-05-2023 Tobacco smoking status NHIS Smoker (finding) [facility] Start: 1970 Sex Assigned At Not on file [employer] [facility] Start: 10-23-2023 Alcohol intake Ex-drinker (finding) [facility] [facility] Medical Equipment Procedure Code Equipment Code Equipment Origin al Text Equipment Identifier Dates Fibertak [place] Self-Punching Knotless 2.6mm W/No 5 Suture [id number] Start: 10-14-2020 [employer] [place] Knotless 2.6mm [id number] Start: 10-14-2020 [place] Swivelock C 4.75mm Biocomposite Peek 19.1mm Suture Closed Eyelet - [id number] Start: 10-14-2020 Sling Gynecare T vt Exact Gynecological Stress Urinary Incontinence - [id number] Start: 12-24-2021 DISC CERVICAL 13 [id number] MOBI-C FDA Start: 09-20-2017 DISC CERVICAL 13 [id number] MOBI-C FDA Start: 09-20-2017 DISC CERVICAL 13 [id number] MOBI-C FDA Start: 09-20-2017 DISC CERVICAL 13 [id number] MOBI-C FDA Start: 09-20-2017 DISC CERVICAL 13 [id number] MOBI-C FDA Start: 09-20-2017 Clinical Notes 10-27-2020 to 11-21-2023 Telephone Encounter - Patricia Zamora - 11/08/2023 3:40 PM ESTTelephone Encounter - Patricia Zamora - 11/08/2023 3:40 PM ESTTelephone Encounter - Hardik Poe LPN - 10/02/2023 4:00 PM EST Note Date & Type Note Facility 11-21-2023 Note HNO ID: [id number] Author: PAM WANG MD Service: ? Author Type: Physician Type: Progress Notes Filed: 11/21/2023 17:03 Note Text: Patient: Mary Leal Date of Service: 11/21/2022 UNIVERSAL PROTOCOL / SAFETY CHECKLIST Procedure to be performed: Peripheral Nerve Evaluation (PNE) Indication: Urinary frequency, urinary urgency, overactive bladder Sign In: A Moment of CARE was completed. Personnel directly involved with the procedure wore the appropriate PPE (Personal Protective Equipment). Patient/Surrogate Stated/Verified: PATIENT VERIFIED(optional for EMERGENT procedures): Patient name, Date of , Relevant allergies, and The intended procedure Time Out Communication: Intended patient and procedure match the source documents. Consent documented and matches the intended procedure. Sign Out: SIGN OUT (optional for EMERGENT procedures): All instruments, equipment, possible retained foreign bodies accounted for. Pam Wang MD Affirmation of Time Out: YES Details of Procedure: The patient was placed in a flat prone position and her lower back was prepped with antiseptics. She was draped in sterile fashion. Her coccyx was marked with a pen, 9cm cephalic to this point along the midline was marked with a pen. A line was drawn 2 cm bilaterally in horizontal fashion and points were marked 2 cm cephalic to these points. A safety time out was done and the correct patient and procedure were identified. Local anesthesia (1% lidocaine) was infiltrated bilaterally. The introducer needle was inserted at approximately 60 degree angle in the patients left side, entering the presumed S3 foramen. The S3 foraminal location was confirmed with positive patient sensation in the rectum and vagina. I then picked a point 4 cm to the patient's right side from the needle. I placed the InterStim needle at an approximately 60degree angle in a similar fashion, entered the S3 foramen. The S3 foraminal location was confirmed and the temporary electrodes were placed. The stylettes were removed as well as the stylette of the temporary electrodes. The electrodes were tested bilaterally and again similar responses were obtained bilaterally. The temporary electrodes were then taped securely to the skin with Tegaderm. The patient tolerated the procedure well. We will see how she does over the next week and plan for interstim stages 1/2 in the OR. Pam Wang MD ATTESTATION By signing my name below, Tri Gloria, attest that this documentation has been prepared under the direction and in the presence of Dr. Pam Wang M.D. Electronically signed, Alex Encinas November 21, 2023 11:57 AM Provider Attestation: Pam Gloria MD, personally performed the services described in this documentation. All medical record entries made by the scribe were at my direction and in my presence. I have reviewed the chart and discharge instructions (if applicable) and agree that the record reflects my personal performance and is accurate and complete. [facility] 11-08-2023 Miscellaneous Notes NURTEC PENDING WITH TEJADA [id number] documented in this encounter [facility] 11-08-2023 Telephone encounter Note NURTEC PENDING WITH TEJADA [id number] [facility] 10-12-2023 Note Patient emailed stat ing she is finding another provider and will no longer be seen at this clinic. [facility] 10-12-2023 Note HNO ID: [id number] Author: Pam Wang MD Service: ? Author [...] Video-assisted cystourethroscopy was performed using a 19 Kyrgyz 70 and 30 degree rigid cystoscope with [...] urethra PLAN: See progress note from today [facility] 10-10-2023 Note HNO ID: [id number] Author: Pam Wang MD Service: ? Author [...] PFSH obtained by others. Pam Wang MD Enterprise Architect offered: Patient declines. OBJECTIVE: BP 102/60 General: [...] would like to move forward with PNE. [employer] packet given to patient today to review. [...] which included preparing to see the patient, [id number] patient care, completing clinical documentation, obtaining and/or reviewing separately obtained history, performing a medically appropriate examination, counseling and educating the patient/family/caregiver, and communicating with other HCP (more content not included)... [facility] 10-02-2023 Miscellaneous Notes Patient was called to find out if there was another pharmacy to send her medication for Diflucan. Patient stated to disregard this medication. Patient stated that she does not need this medication now and that she will be visiting her PCP tomorrow (10/03/23) to address her sickness that she had before going to [place]. She states that she was going to [...] 150 MG TABLET MEREDITH: 09/27/2023 Doris Arias APRN.[facility] ([facility]) ASSESSMENT: Mary Leal is a 53 [...] Dr. Pam Wang documented in this encounter [facility] 09-27-2023 Note HNO ID: [id number] Author: Doris Arias APRN.[facility] Service: ? Author Type: Nurse Practitioner Type: [...] ache and some malodorous urine. Patient in [place], unable to come in for visit. Has [...] urination is normal and pressure with urinating EDGE STAINER: denies abnormal vaginal bleeding, no vaginal discharge [...] Making Level: 3 - Low Doris Arias APRN.[facility] 09-27-2023 Miscellaneous Notes Scheduled 10/10/23 for [...] which included preparing to see the patient, [id number] patient care, completing clinical documentation, obtaining and/or [...] Office will call to schedule cystoscopy. Urogynecology [facility] Main provided: Pam Wang Staff Physician, Department of Urogynecology and Pelvic Floor Disorders Worsening frequency and urgency of urination. Is a urine culture indicated? Please review/advise Lex Vieyra RN documented in this encounter [facility] 09-19-2023 Note Patient states she m istook this medication and has been off for 7 days. Restarting it at the 25mg dose. [facility] 09-11-2023 Note HNO ID: [id number] Author: Jairon Lai MD Service: ? Author Type: Physician Type: Progress Notes Filed: 09/11/2023 1:18 PM Note Text: [facility] [...] to void lower flow Jairon Lai MD [facility] 09-11-2023 Note HNO ID: [id number] Author: Phil Beckford MD Service: ? Author [...] from sling incision +/- discussion of SNM [facility] 09-01-2023 Note Spoke with patient. Canceling valium script. Increasing ativan dose to bid with current bottle for mgmt of anxiety. Appoitment on Saturday 09/08 - she will bring in ativan to count tablets. She states she has 20 left as of today. She should have 4 left at that appointment. [facility] 09-01-2023 Note Mary has been hav ing [...] disponing Ativan at pharmacy in order to fruit picker 1 weeks worth of Valium 5mg bid #16, to get her to her next appointment on 09/08. 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 Respiratory: Negative. Cardiovascular: Negative. Psychiatric/Behavioral: dysphoric mood, irritability, insomnia Date of Telehealth Visit: 08/23/23 Chief Complaint Patient presents with Telehealth Audio/video Visit [email or web address] HPI The patient was notified that using 3rd constitution party telecommunication application (e.g., [employer]) is not HIPPA compliant and may carry some privacy risks. Yes The visit was conducted [id number] with the use of audio and video technology [employer] between patient and provider for a virtual [...] Wear CPAP/ Insp (more content not included)... [facility] 08-21-2023 Note Est [facility] 08-12-2023 Emergency department Note Discharge, follow up, referral, and prescription information reviewed and explained; all questions and concerns addressed. Patient A/Ox3 in NAD, resp. easy unlabored upon discharge, escorted to exit by staff. [facility] 08-12-2023 Emergency department Note Discharge, [...] gastroparesis, gastroenteritis, acute cholecystitis, pancreatitis, less likely [place] The patient's initial and delta troponin are negative. EKG does not demonstrate any ischemic changes. Low suspicion for AZ. Her urinalysis is negative for UTI. Urine [...] follow-up. She was instructed to call her project accountant and PCP to schedule follow-up appointments. She was instructed to return to the emergency department if she has any new or worsening symptoms. Patient agreeable plan of care. Return precautions discussed at bedside. Spoke with Dr. Salmon regarding patient. Physician to complete their own physical exam and evaluation. Collaboration performed between this NURSING RESIDENT and physician regarding patient's plan of care. [...] following orders were created for panel order [place] Draw. Procedure Abnormality Status --------- ------ Gold Top[[id number]] Final result LIGHT BLUE TOP[[id number]] Final result Dark Green Top[[id number]] Final result Please view results for these [...] PWD. NAD noted. documented in this encounter [facility] 08-12-2023 Hospital Discharge instructions Lev Ritter APRN [...] cannot be sent through Care Everywhere.Abdominal Pain (Turkish Hong Konger)documented in this encounter [facility] 08-12-2023 Emergency department Note Report to Les GAMBINO [facility] 08-12-2023 Physician Emergency department Note Images from [...] gastroparesis, gastroenteritis, acute cholecystitis, pancreatitis, less likely [place] The patient's initial and delta troponin are negative. EKG does not demonstrate any ischemic changes. Low suspicion for AZ. Her urinalysis is negative for UTI. Urine [...] follow-up. She was instructed to call her project accountant and PCP to schedule follow-up appointments. She was instructed to return to the emergency department if she has any new or worsening symptoms. Patient agreeable plan of care. Return precautions discussed at bedside. Spoke with Dr. Salmon regarding patient. Physician to complete their own physical exam and evaluation. Collaboration performed between this NURSING RESIDENT and physician regarding patient's plan of care. [...] following orders were created for panel order [place] Draw. Procedure Abnormality Status --------- ------ Gold Top[[id number]] Final result LIGHT BLUE TOP[[id number]] Final result Dark Green Top[[id number]] Final result Please view results for these tests on the individual orders. GOLD TOP LIGHT BLUE TOP DARK GREEN TOP TROPONIN I Records reviewed: Urogynecology telemedicine visit 08/07/2023 ENT visit 07/11/2023 Family medicine visit 07/06/2023 Lev Ritter APRN CNP 08/12/23722 [facility] 08-12-2023 Emergency department Note Emily at bedside [facility] 08-12-2023 Emergency department Triage note Ambulates to triage with C/O sudden epigastric gnawing, burning pain that woke her from sleep. Also reports wheezing. States nausea. Denies fever. Alert. Respirations easy and unlabored. Skin PWD. NAD noted. [facility] 08-07-2023 Note HNO ID: [id number] Author: Pam Wang MD Service: ? Author [...] no Pain: no Abnormal Vaginal Discharge: no EDGE STAINER 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 She has no history of an abnormal mammogram with cysts on US LMP: No LMP recorded. Patient has had a hysterectomy.; Menopause 3 years ago; hysterectomy in 2015: Menstrual history: NA; Deliveries: I have confirmed and edited as necessary, the PFSH obtained by others. Pam Wang MD Enterprise Architect offered: Patient declines. OBJECTIVE (Virtual) There were [...] which included preparing to see the patient, vgrq-dt-xjpz patient care, completing clinical documentation, obtaining and/or reviewing separately obtained history, counseling and educating the patient/family/caregiver, ordering medications, tests, or procedures, and communicating with other HCPs (not separately reported). Pam Wang MD [facility] 07-31-2023 Note HNO ID: [id number] Author: Nelsy Chávez APRN.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 Service: ? Author Type: Nurse Practitioner Type: [...] new Pain: no Abnormal Vaginal Discharge: no EDGE STAINER 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 She has no history of an abnormal mammogram with cysts on US LMP: No LMP recorded. Patient has had a hysterectomy.; Menopause 3 years ago; hysterectomy in 2014: Menstrual history: NA; Deliveries: I have confirmed and edited as necessary, the PFSH obtained by others. Nelsy Chávez APRN.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 Enterprise Architect offered: Patient declines. OBJECTIVE: There were no [...] for now d/t side effects Nelsy Chávez APRN.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 I spent a total of 45 minutes on the date of the service which included preparing to see the patient, shru-ss-iinq patient care, completing clinical documentation, performing a medically appropriate examination, counseling and educating the patient/family/caregiver and ordering medications, tests, or procedures. [facility] 07-31-2023 History of Present illness Narrative Female [...] new Pain: no Abnormal Vaginal Discharge: no EDGE STAINER 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 She has no history of an abnormal mammogram with cysts on US LMP: No LMP recorded. Patient has had a hysterectomy.; Menopause 3 years ago; hysterectomy in 2015: Menstrual history: NA; Deliveries: I have confirmed and edited as necessary, the PFSH obtained by others. Nelsy Chávez APRN.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 Enterprise Architect offered: Patient declines. OBJECTIVE: There were no [...] coordinate follow up Pt opts to stop Shunbetriq for now d/t side effects Nelsy Chávez APRN.KWESI I spent a total of 45 minutes on the date of the service which included preparing to see the patient, qbjh-yc-jpxd patient care, completing clinical documentation, performing a medically appropriate examination, counseling and educating the patient/family/caregiver and ordering medications, tests, or procedures. documented in this encounter [facility] 07-25-2023 Note Patient: Mary arriaza Procedure Summary Date: 07/25/23 Room / Location: [facility] Main OR Anesthesia Start: 1104 Anesthesia Stop: 121 Procedures: EGD DIAGNOSTIC COLONOSCOPY Diagnosis: Gastroesophageal reflux [...] per anesthesia protocol. No notable events documented. [facility] 07-25-2023 Note Patient: Mary arriaza Procedure Summary Date: 07/25/23 Room / Location: [facility] Main OR Anesthesia Start: 1104 Anesthesia Stop: Procedures: EGD DIAGNOSTIC COLONOSCOPY Diagnosis: Gastroesophageal reflux disease without esophagitis Nausea Diarrhea, unspecified type Scheduled Providers: Matteo Quinones MD; Blanquita Ramirez MD Responsible Provider: Blanquita Ramirez MD Anesthesia Type: MAC ASA Status: 3 Anesthesia Post Transport [facility] Patient Monitor: direct observation Transport: uneventful Patient condition is: stable [facility] 07-25-2023 Note Patient: Mary arriaza Procedure Information Date/Time: 07/25/23 1100 Scheduled providers: Matteo Quinones MD; Blanquita Ramirez MD Procedures: EGD DIAGNOSTIC COLONOSCOPY Location: [facility] [place] Main OR Relevant Problems Anesthesia (+) CHUCKIE [...] who. Plan discussed with resident, CAA and CHIEF NURSE. 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 Do not wear perfume, make-up, nail syrian, or lotions on the day of your [...] need to make any changes, please call [phone]. Notify your surgeon if you develop any illness such as a cold, cough, fever, sore throat or vomiting between now and your surgery. Thank you for entrusting us with your care. [facility] Surgical Services Team [facility] 06-08-2023 Note Psych Progress Note Time In: 925 Time Out: 940 HPI Present at Visit: basia Hernandez, SUPERVISOR TRAIN OPERATIONS student Location of Service: Office Review of Systems Constitutional: Negative. Respiratory: Negative. Cardiovascular: Negative. Psychiatric/Behavioral: Negative. Date of Telehealth Visit: 06/08/23 Chief Complaint Patient presents with Telehealth Audio/video Visit [email or web address] The patient was notified that using 3rd constitution party telecommunication application (e.g., Nurix) is not HIPPA compliant and may carry some privacy risks. Yes The visit was conducted sppv-cn-eeko with the use of audio and video technology [employer] between patient and provider for a virtual [...] dictated by speech recognition. Minor errors in manager marketing may be present. Information on after hour access to care was provided - encouraged to use 911, [facility], their formerly [facility] crisis hotline, or the nearest emergency room in the event of a crisis. Also informed of 24 hour access at [facility] and if in crisis after regular business hours may call the hospital gang drill operator [phone]; and ask to speak with the founder and president on-call. Patient Rights and Responsibilities were discussed, [...] get back t (more content not included)... [facility] 05-31-2023 Note [facility] Gastroenterolog y New Patient Visit - History & Physical CHIEF COMPLAINT Chief Complaint Patient presents with Nausea GERD Abdominal Pain New Patient HISTORY OF PRESENT ILLNESS: Mary Leal is a 53 y.o. female new patient referred by Dr. Gómez for gastroparesis, GERD, and abdominal pain. Past medical history includes gastroparesis ( was evaluated by DR Masters at [facility]) and total abdominal colectomy with ileorectal [...] Abnormal mammogram Arthritis (more content not included)... [facility] 05-22-2023 Note You are not granted access to view this sensitive note. [facility] 05-17-2023 Note Psych Progress Note Time In: 1245 Time Out: 110 HPI Present at Visit: Mary Location of Service: Office Review of Systems Constitutional: Negative. Respiratory: Negative. Cardiovascular: Negative. Psychiatric/Behavioral: Negative. Date of Telehealth Visit: 05/17/23. Chief Complaint Patient presents with Telehealth Audio/video Visit [email or web address] The patient was notified that using 3rd constitution party telecommunication application (e.g., Nurix) is not HIPPA compliant and may carry some privacy risks. Yes The visit was conducted emjb-ba-jzge with the use of audio and video [...] dictated by speech recognition. Minor errors in manager marketing may be present. Information on after hour access to care was provided - encouraged to use [employer], [facility], their formerly [facility] crisis hotline, or the nearest emergency room in the event of a crisis. Also informed of 24 hour access at [facility] and if in crisis after regular business hours may call the hospital gang drill operator [phone]; and ask to speak with the founder and president on-call. Patient Rights and Responsibilities were discussed, [...] alternatives to tr (more content not included)... [facility] 05-17-2023 Note You are not granted access to view this sensitive note. [facility] 04-26-2023 Evaluation note Encounter Date Diagnosis Assessment [...] Above note written by Wanda Yang LPN, Clinical Cytopathologist. Edited and approved by Dr. Annette Harris MD. [employer] Other 06-12-2023 NoteYou are not granted access to view this sensitive note.[facility]06-09-2023 NoteYou are not granted access to view this sensitive note.[facility] 04-11-2023 Miscellaneous Notes* Telephone Encounter - Serenity Joseph MA - 04/11/2023 10:19 AM EDT MEREDITH=10/11/22 Spoke with patient she does need a refill Medication pended please file Rx request if appropriate Patient and pharmacy verified documented [facility] NoteYou are not granted access to view this sensitive note.[facility]05-15-2023 Miscellaneous Notes* Telephone Encounter - Regina Philippe - 03/20/2023 2:50 PM EDT Should patient follow up via virtual visit to discuss further? * Telephone Encounter - Steffi Ross LPN - 03/20/2023 10:20 AM EDT Patient's stool tests came back normal. Steffi Ross LPN documented in this encounterC[facility]05-[facility]-2023 NoteYou are not granted access to view this sensitive note.[facility]05-01-2023 NoteYou are not granted access to view this sensitive note.[facility]04-24-2023 NoteYou are not granted access to view this sensitive note.[facility]04-18-2023 NotePROCEDURE: XR ANKLE RT MIN [...] Electronically authenticated by: ZAIDA ACOSTA Date: 2023-02-21 10:15[facility]04-18-2023 NotePROCEDURE: XR ANKLE RT MIN 3 [...] Electronically authenticated by: ZAIDA ACOSTA Date: 2023-02-21 10:15[facility]04-17-2023 NoteYou are not granted access to view this sensitive note.[facility]04-13-2023 NotePsych Progress Note Time In: 2 Time Out: 2:25 HPI Present at Visit: Mary Location of Service: Office Review of Systems Constitutional: Negative. Respiratory: Negative. Cardiovascular: Negative. Psychiatric/Behavioral: Negative. Date of Telehealth Visit: 02/20/2023 Chief Complaint Patient presents with Telehealth Audio/video Visit [email or web address] The patient was notified that using 3rd constitution party telecommunication application (e.g., Nurix) is not HIPPA compliant and may carry some privacy risks. Yes The visit was conducted cjos-wl-omfk with the use of audio and video technology [employer] between patient and provider for a [...] 52 year old female presents for med [employer]. She reports a decrease in depression and [...] dictated by speech recognition. Minor errors in manager marketing may be present. Information on after hour access to care was provided - encouraged to use [employer], [facility], their formerly [facility] crisis hotline, or the nearest emergency room in the event of a crisis. Also informed of 24 hour access at [facility] and if in crisis after regular business hours may call the hospital gang drill operator [phone]; and ask to speak with the founder and president on-call. Patient Rights and Responsibilities were discussed, [...] as all medications m (more content not included)...[facility]04-10-2023 Note Attestation signed by Grant Biswas, PhD at 02/16/2023 2:57 PM This encounter qualifies to be billed under ???Direct Supervision??? because this patient was met by a licensed clinical psychologist upon starting treatment services with the provider who is a clinical psychology engineering systems analyst. The licensed clinical psychologist providing supervision for [...] in office Patient Location: Via telehealth in [place] Telehealth Information Telehealth Mode: Webex (video + audio) The patient was notified that using 3rd constitution party telecommunication application is not HIPAA compliant and may carry some privacy risks: Yes Video Consent Date of Telehealth Visit: 02/13/23 The patient was notified that using 3rd constitution party telecommunication application (e.g. Nurix) is not HIPAA compliant and may carry some privacy risks: Yes This visit was conducted yims-vj-xaal with the use of audio and video technology using [employer] between patient and the provider for a virtual visit. Verbal consent to provide and bill this service was obtained on: 02/13/23 No signature was obtained due to the COVID-19 pandemic. SUBJECTIVE CC: Chief Complaint Patient presents with Therapy HPI: Mary Leal is a 52 y.o. female presenting to the [facility] Psychiatry Clinic on 02/13/23 for management [...] (ISP): Provider: Carmen Dorsey M.A. (clinical psychology engineering systems analyst) Frequency: 1-4 weeks Patient Needs: eleviate anxiety, [...] oriented to person, orien (more content not included)...[facility]04-03-2023 Note Attestation signed by Grant Biswas, PhD at 02/06/2023 9:45 AM This encounter qualifies to be billed under ???Direct Supervision??? because this patient was met by a licensed clinical psychologist upon starting treatment services with the provider who is a clinical psychology engineering systems analyst. The licensed clinical psychologist providing supervision for [...] in office Patient Location: [facility] telehealth in [place] Telehealth Information Telehealth Mode: Webex (video + audio) The patient was notified that using 3rd constitution party telecommunication application is not HIPAA compliant and may carry some privacy risks: Yes Video Consent Date of Telehealth Visit: 02/06/23 The patient was notified that using 3rd constitution party telecommunication application (e.g. Nurix) is not HIPAA compliant and may carry some privacy risks: Yes This visit was conducted ypjj-qn-lagw with the use of audio and video technology using [employer] between patient and the provider for a virtual visit. Verbal consent to provide and bill this service was obtained on: 02/06/23 No signature was obtained due to the COVID-19 pandemic. SUBJECTIVE CC: Chief Complaint Patient presents with Therapy HPI: Mary Leal is a 52 y.o. female presenting to the [facility] Psychiatry Clinic on 02/06/23 for management of depression and anxiety. Since the last visit, the patient's condition has remained stable. Session activities included: symptom monitoring, psychoeducation on obsessive thoughts/compulsive behaviors. Pt stated she has had difficulty sleeping the past week and feels tired. Pt regularly reports sleep difficulties. She stated she saw her SUPERVISOR TRAIN OPERATIONS and they discussed stopping her trazadone to see if that helps. Pt stated she did not get any sleep the nights she did not take the trazadone and thus started taking it again. She stated she will message her SUPERVISOR TRAIN OPERATIONS to let her know. Pt stated she [...] (ISP): Provider: Carmen Dorsey M.A. (clinical psychology engineering systems analyst) Frequency: 1-4 weeks Patient Needs: eleviate anxiety, [...] normal Build/Stature: N/A Gait (more content not included)...[facility]03-30-2023 NotePsych Progress Note Time In: 9:38 Time [...] dictated by speech recognition. Minor errors in manager marketing may be present. Information on after hour access to care was provided - encouraged to use 911, [facility], their formerly [facility] crisis hotline, or the nearest emergency room in the event of a crisis. Also informed of 24 hour access at [facility] and if in crisis after regular business hours may call the hospital gang drill operator [phone]; and ask to speak with the founder and president on-call. Patient Rights and Responsibilities were discussed, [...] needed between scheduled f (more content not included)...[facility] 01-31-2023 NotePROCEDURE: XR FOOT RT MIN 3 [...] Electronically authenticated by: ZAIDA ACOSTA Date: 2023-01-31 11:55[facility]03-20-2023 Note Attestation signed by Grant Biswas, PhD at 01/23/2023 11:30 AM This encounter qualifies to be billed under ???Direct Supervision??? because this patient was met by a licensed clinical psychologist upon starting treatment services with the provider who is a clinical psychology engineering systems analyst. The licensed clinical psychologist providing supervision for [...] in office Patient Location: [facility] tele[facility] in [place] Telehealth Information Telehealth Mode: 56.com (video + audio) The patient was notified that using 3rd constitution party telecommunication application is not HIPAA compliant and may carry some privacy risks: Yes Video Consent Date of Telehealth Visit: 01/23/23 The patient was notified that using 3rd constitution party telecommunication application (e.g. Nurix) is not HIPAA compliant and may carry some privacy risks: Yes This visit was conducted ijyw-ms-fszh with the use of audio and video technology using [employer] between patient and the provider for a virtual visit. Verbal consent to provide and bill this service was obtained on: 01/23/23 No signature was obtained due to the COVID-19 pandemic. SUBJECTIVE CC: Chief Complaint Patient presents with Therapy HPI: Mary Leal is a 52 y.o. female presenting to the [facility] Psychiatry Clinic on 01/23/23 for management [...] to live with their older sister in [place]. Pt has met with an criminal attorney and is securing the necessary paperwork. [...] (ISP): Provider: Carmen Dorsey M.A. (clinical psychology engineering systems analyst) Frequency: 1-4 weeks Patient Needs: eleviate anxiety, [...] time Attention and Concent (more content not included)...[facility]03-16-2023 Miscellaneous Notes* Telephone Encounter - Jennie Moreno RN - 01/19/2023 2:17 PM EDT Please review and advise patient. documented in this encounterC[facility]03-[facility] Miscellaneous Notes* Telephone Encounter - Mounika Hernandez PA-C - 01/16/2023 1:08 PM EDT Patient was scheduled for virtual PACC appt at 1300 today. Patient did not check in for visit. Called patient at [phone] to see if they needed any assistance logging in and left voicemail. This message routed to PACC schedulers to contact patient to reschedule PACC appt. Mounika Hernandez PA-C January 16, 2023 1:09 PM documented in this encounterC[facility]03-13-[facility] History and physical note * Mounika Hernandez PA-C - 01/16/2023 1:00 PM EDT This is a virtual visit using [employer] video visit. It required patient-provider interaction for themedical decision making as documented below. I have communicated my name and active licensure. The patient's identity and physical location wereverified at the time of this visit. Either the patient or their legal investment representative has been informed of the risks and benefits of and alternatives to treatment through a remote evaluation and consents to proceed with the evaluation remotely. Surgeon: Winston Hannah DO Type of surgery: GEN SURG: POP Patient scheduled for surgery on 02/08/23 . Surgery Location: [facility] Diagnosis: Preop examination (primary encounter diagnosis) Nausea [...] in the AM and 4 mg PM tchwzdcthed-worrfiajg-aesgzvab (TRELEGY ELLIPTA) 100-62.5-25 mcg Inhale 1 Puff [...] 16, 2023 12:36 PM documented in this encounterC[facility]03-13-[facility]23 Instructions* Patient Instructions* Mounika Hernandez PA-C - 01/16/2023 12:38 PM EDT PATIENT PREOPERATIVE INSTRUCTIONS Winston Hannah DO has scheduled you for your procedure at this surgery center: [facility]: [phone] -- [address], [place] [address]. Please read below carefully for your personalized [...] Procedures: - YOU MUST HAVE A RESPONSIBLE FLAME HARDENING MACHINE OPERATOR TAKE YOU HOME. A PIZZAMAKER OR CAPSULE MAKER CANNOT BE MADE A RESPONSIBLE FLAME HARDENING MACHINE OPERATOR. - We recommend that a responsible person [...] Advance Directive, please fax a copy to [phone] or email to for it to be [...] day. Mounika Hernandez PA-C documented in this encounterC[facility]03-08-2023 Miscellaneous Notes* Telephone Encounter - Berta Ann RN - 01/11/2023 9:47 AM EST Procedure pended for 02/08/23. Pt aware of need for PACC. Pre-op instructions reviewed, will send to pt's [facility], per pt request. Postop appt scheduled. No other questions at this time. Berta HENSON, RN Specialty Animal Trapper documented in this encounterCleveland Clinic [facility]03-07-2023 NoteHNO ID: [id number] Author: Winston Hannah DO Service: ? Author Type: Physician Type: Progress Notes Filed: 01/10/2023 6:08 PM Note Text: [facility] [place] Gastroparesis/Dysmotility Follow Up This encounter was provided [...] TIME: 8:59 AM PRIMARY CARE PHYSICIAN: Eliceo Gómez DO Assessment ASSESSMENT 52 year old female [...] of care. NAME: Mary Leal CLINIC NO: [id number] CHIEF COMPLAINT Idiopathic Gastroparesis HISTORY OF PRESENT [...] thin barium without ob (more content not included)...[facility] 01-10-2023 History of Present illness Narrative* Winston Hannah, - 01/10/2023 9:09 AM EST Images from the original note were not included. [facility] [place] Gastroparesis/Dysmotility Follow Up This encounter was provided [...] TIME: 8:59 AM PRIMARY CARE PHYSICIAN: Eliceo Gómez DO Assessment ASSESSMENT 52 year old female [...] of care. NAME: Mary Leal CLINIC NO: [id number] CHIEF COMPLAINT Idiopathic Gastroparesis HISTORY OF PRESENT [...] Normal gastric transit Normal small bowel transit [id number] transit in the distal bowel consistent delay [...] (FLONASE) 50 mcg/actuation nasal spray Use 1 Berkley in each nostril once daily. carBAMazepine XR [...] THE LUNGS every 4 hours if needed utoemuvbdga-dbuojdzil-sbxqlomu (TRELEGY ELLIPTA) 100-62.5-25 mcg Inhale 1 Puff [...] dialysis. No history of symptoms or problems. EDGE STAINER: Negative for abnormal vaginal bleeding, abnormal vaginal [...] plan of care. documented in this encounterCleveland [facility]03-03-2023 NoteDepartment of Psychiatry Outpatient Progress Note Time In: 2:30 PM Time Out: 3:00 PM Present At Visit: Patient Clinician Location: Clinician via telehealth Patient Location: Meeting remotely by telephone today (patient unable to connect by video). Subjective CC: Chief Complaint Patient presents with Telehealth Audio/video Visit HPI: Mary Leal is a 52 y.o. female presenting to the [facility] Psychiatry Clinic on 01/06/2023 for medication [...] week. Annette Swanson DO (more content not included)...[facility] 01-02-2023 NotePsychiatry Psychotherapy Progress Note Time In: 11:00 am Time Out: 11:53 am Present At Visit: Patient Clinician Location: Clinician in office Patient Location: Via telehealth [facility] Telehealth Information Telehealth Mode: Webex (video + audio) The patient was notified that using 3rd constitution party telecommunication application is not HIPAA compliant and may carry some privacy risks: Yes Video Consent Date of Telehealth Visit: 01/02/23 The patient was notified that using 3rd constitution party telecommunication application (e.g. [employer]ur[employer]) is not HIPAA compliant and may carry some privacy risks: Yes This visit was conducted uuwg-xu-uflv with the use of audio and video technology using [employer] between patient and the provider for a virtual visit. Verbal consent to provide and bill this service was obtained on: 01/02/23 No signature was obtained due to the COVID-19 pandemic. SUBJECTIVE CC: Chief Complaint Patient presents with Therapy HPI: Mary Leal is a 52 y.o. female presenting to the [facility] Psych[facility]ry Clinic on 01/02/23 for management of depression and anxiety. Since the last visit, the patient's condition has improved Session activities included: reviewed and discussed acts of self-care and value-focused behaviors. Pt stated she had an epiphany last week and made the decision to have her niece and nephew live with their sister in [place]. Pt stated she is done raising kids [...] with her children before they go to [place]. Pt acknowledged she was not looking forward [...] (ISP): Provider: Carmen Dorsey M.A. (clinical psychology engineering systems analyst) Frequency: 1-4 weeks Patient Needs: eleviate anxiety, [...] Disp: , Rfl: alend (more content not included)...[facility] 12-29-2022 Miscellaneous Notes* Addendum Note - Yoni Tuttle MD - 12/29/2022 3:37 PM ESTAddended by: YONI TUTTLE MD on: 12/29/2022 03:37 PM Modules accepted: Orders documented in this encounterCleveland Clinic South Po[facility]02-20-2023 NoteHNO ID: [id number] Author: Deb Booker RT(R) Service: Radiology Author [...] BY: RT Елена(R) December 26, 2022 3:17 [facility]02-20-2023 History of Present illness Narrative* RT Елена(R) [...] 26, 2022 3:17 PM documented in this encounterCleveland Clinic [facility]02-17-2023 Miscellaneous Notes* Telephone Encounter - Erica Serrano RN - 12/23/2022 4:36 PM EST Message being addressed in another encounter that was forwarded to provider documented in this encounterCleveland Clinic South [facility]02-16-2023 NoteHNO ID: [id number] Author: Winston Hannah, DO Service: ? Author Type: Physician Type: Progress Notes Filed: 12/22/2022 9:32 AM Note Text: [facility] [place] Gastroparesis/Dysmotility Follow Up This encounter was provided [...] TIME: 8:57 AM PRIMARY CARE PHYSICIAN: Eliceo Gómez, DO Assessment ASSESSMENT 52 year old female [...] completed esophagram NAME: Mary Leal CLINIC NO: [id number] CHIEF COMPLAINT Idiopathic Gastroparesis HISTORY OF PRESENT [...] chicken spaghetti etc. Duration of symptoms (months): 3883-1482 Weight changes in last 3 months: Stable [...] transit. WGTT: 24:32 Normal (more content not included)...[facility] 12-22-2022 History of Present illness Narrative* Winston Hannah, DO - 12/22/2022 8:52 AM EST Images from the original note were not included. [facility] [place] Gastroparesis/Dysmotility Follow Up This encounter was provided [...] TIME: 8:57 AM PRIMARY CARE PHYSICIAN: Eliceo Gómez DO Assessment ASSESSMENT 52 year old female [...] completed esophagram NAME: Mary Leal CLINIC NO: [id number] CHIEF COMPLAINT Idiopathic Gastroparesis HISTORY OF PRESENT ILLNESS Mray Leal is a 52 year old [...] chicken spaghetti etc. Duration of symptoms (months): 3887-4137 Weight changes in last 3 months: Stable [...] Normal gastric transit Normal small bowel transit [id number] transit in the distal bowel consistent delay [...] TONSILLECTOMY HX 07/2021 revision VAGINAL HYSTERECTOMY 2014 [facility] 10/2015 for endometriosis, has remaining both FAMILY [...] (FLONASE) 50 mcg/actuation nasal spray Use 1 Berkley in each nostril once daily. carBAMazepine XR [...] THE LUNGS every 4 hours if needed ptbmakrrcrt-fqfwbrsux-tarxjuhl (TRELEGY ELLIPTA) 100-62.5-25 mcg Inhale 1 Puff [...] dialysis. No history of symptoms or problems. EDGE STAINER: Negative for abnormal vaginal bleeding, abnormal vaginal [...] plan of care. documented in this encounterCleveland Clinic [facility]02-15-2023 NotePROCEDURE: XR FOOT RT MIN 3 [...] Electronically authenticated by: ZAIDA ACOSTA Date: 2022-12-21 12:24[facility]02-09-2023 NoteHNO ID: [id number] Author: Mary Obrien MD Service: ? Author [...] in the AM and 4 mg PM qgqekentvyy-xjrrlnwnr-ozrbclxx (TRELEGY ELLIPTA) 100-62.5-25 mcg Inhale 1 Puff [...] which included preparing to see the patient, tihf-se-rlcs patient care, co (more content not included)...[facility]02-09-2023 History of Present illness Narrative* Mary Obrien [...] in the AM and 4 mg PM pnildshgfsw-ovyyhprjz-edlstlyz (TRELEGY ELLIPTA) 100-62.5-25 mcg Inhale 1 Puff [...] which included preparing to see the patient, mqrm-wb-lfxi patient care, completing clinical documentation, obtaining and/or reviewing separately obtained history, counseling and educating the patient/family/caregiver, ordering medications, quincy ts, or procedures, communicating with other HCPs (not separately reported), independently interpreting results (not separately reported), communicating results to the patient/family/caregiver, and care coordination (not separately reported). Mary Obrien MD Colorectal Surgery documented in this encounterCleveland Clinic [facility]02-08-2023 Miscellaneous Notes* Telephone Encounter - Patricia Benton RN - 12/14/2022 5:19 PM EST Several attempts to reach pt unsuccessful - MC sent. * Telephone Encounter - Barber Marie - 12/02/2022 8:39 AM EST SLEEP PHONE Name of caller: Mary Leal Relationship to patient : Self In-state or egf-jt-ckwrf patient: In-State Was permission obtained from patient? Yes Patient identified by Name and Date of . ( Mary Leal, 1970). Yes Reason for Call : Patient said her and Patricia was chatting through my chart and Patricia calledher about 5:15 yesterday. Number to return call [phone] Okay to leave a message ? Yes Last office visit 10/14/[address] Tuttle virtual Next office visit 01/13/[address] Tuttle virtual documented in this encounterCleveland Clinic [facility]02-06-2023 NotePsychiatry Psychotherapy Progress Note Time In: 8:30 am Time Out: 9:25 am Present At Visit: Patient Clinician Location: Clinician in office Patient Location: Via telehealth in [place] Telehealth Information Telehealth Mode: Webex (video + audio) The patient was notified that using 3rd constitution party telecommunication application is not HIPAA compliant and may carry some privacy risks: Yes Video Consent Date of Telehealth Visit: 12/12/22 The patient was notified that using 3rd constitution party telecommunication application (e.g. [employer]ur[employer]) is not HIPAA compliant and may carry some privacy risks: Yes This visit was conducted witk-ud-bjfs with the use of audio and video technology using [employer] between patient and the provider for a virtual visit. Verbal consent to provide and bill this service was obtained on: 12/12/22 No signature was obtained due to the COVID-19 pandemic. SUBJECTIVE CC: Chief Complaint Patient presents with Therapy HPI: Mary Leal is a 52 y.o. female presenting to the [facility] on 12/12/22 for management [...] (ISP): Provider: Carmen Dorsey M.A. (clinical psychology engineering systems analyst) Frequency: 1-4 weeks Patient Needs: eleviate anxiety, [...] of water, on an (more content not included)...[facility]02-06-2023 Miscellaneous Notes* Telephone Encounter - See Wong [...] and follow up testing return call to [phone] documented in this encounterCleveland Clinic [facility]02-03-2023 NoteDepartment of Psychiatry Outpatient Progress Note Time In: 3 PM Time Out: 3:30 PM Present At Visit: Patient Clinician Location: Clinician in office Patient Location: In office Subjective CC: Chief Complaint Patient presents with Telehealth Audio/video Visit [email or web address] HPI: Mary Leal is a 52 y.o. female presenting to the [facility] Psych[facility] Clinic on 12/09/21. ' Between [...] teratogenicity, and medication (more content not included)... [facility]02-03-2023 Miscellaneous Notes* Telephone Encounter - MALAIKA Rosales [...] patient Summary: As noted Concerns: Procedure results Animal Trapper plan for next outreach: Will follow up Signature Nelsy Pepe RN December 08, 2022 documented in this encounterCleveland Clinic [facility] Po[facility]01-30-2023 Nurse Note* Lisa Contreras RN - 12/05/2022 1:05 PM EST [facility] END[facility]COPY PRE PROCEDURE CALL Akiko. I'm calling from [facility] endoscopy to provide you with the information for your surgery/procedure tomorrow. Spoke to: Patient CONFIRM Procedure Planned with patient:Esophagogastroduodenoscopy(EGD) with or without biopies based on clinical findings, removal of polyps or lesions Are you familiar with where [facility] is located?yes Address [facility] Patient instructed to enter through the main hospital entrance off [address] at [address] through the revolving doors and check in at the main desk with your pharmacy delivery driver's license and insurance card.yes When anesthesia or sedation is being given: Patient instructed you must have an adult pharmacy delivery driver because you will not be able to work or drive for the rest of the day after your test.yes Can you please confirm the name and relationship of your pharmacy delivery driver. tbd What is the best number for your pharmacy delivery driver to be reached at tomorrow for updates? tbd Your pharmacy delivery driver is allowed to wait here with [...] Do not wear makeup, lotion, or finger syrian. yes Patient instructed: Please bring a list [...] given Any barriers to Patient learning (confusion? Carpenter Ship needed?): Patient/Patient Cad Programmer responded appropriately on phone. If patient needs to reschedule please call: [phone] [facility] phone number: [phone] Type of instruction given: Verbal by telephone contact. documented in this encounterCleveland Clinic South Pointe [facility]01-27-2023 Nurse Note* Isra Harman RN - 12/02/2022 10:48 AM EST [facility] END[facility] PRE PROCEDURE CALL Akiko. I'm calling from [facility] endoscopy to provide you with the information for your surgery/procedure tomorrow. Spoke to: Patient CONFIRM Procedure Planned with patient: Are you familiar with where [facility] is located?yes Address [facility] Patient instructed to enter through the main hospital entrance off [address] at [address] through the revolving doors and check in at the main desk with your pharmacy delivery driver's license and insurance card.yes When anesthesia or sedation is being given: Patient instructed you must have an adult pharmacy delivery driver because you will not be able to work or drive for the rest of the day after your test.yes Can you please confirm the name and relationship of your pharmacy delivery driver. Rich What is the best number for your pharmacy delivery driver to be reached at tomorrow for updates? [phone] Your pharmacy delivery driver is allowed to wait here with [...] must be done on Monday.) Did you fruit picker your bowel prep pt calling office [...] Do not wear makeup, lotion, or finger syrian. yes Patient instructed: Please bring a list [...] given Any barriers to Patient learning (confusion? Carpenter Ship needed?): Patient/Patient Cad Programmer responded appropriately on phone. If patient needs to reschedule please call: [phone] [facility] phone number: [phone] Type of instruction given: Verbal by telephone contact. documented in this encounterCleveland Clinic [facility]01-26-2023 NotePROCEDURE: XR FOOT RT MIN 3 [...] Electronically authenticated by: ZAIDA ACOSTA Date: 2022-12-01 11:42[facility]01-26-2023 NotePROCEDURE: XR FOOT RT MIN 3 [...] Electronically authenticated by: ZAIDA ACOSTA Date: 2022-12-01 11:42[facility]01-25-2023 NoteHNO ID: [id number] Author: Isra Masters, DO Service: ? Author [...] in the AM and 4 mg PM nurgnpxgeip-cxekzmrlr-peexfbxx (TRELEGY ELLIPTA) 100-62.5-25 mcg Inhale 1 Puff [...] no edema RESPIRATORY: No dyspnea : neg EDGE STAINER: neg The remainder of the review of [...] K59.04 SIGMOIDOSCOPY 2. Nausea R11.0 Isra MastersDO 11/30/2022[facility]01-25-2023 History of Present illness Narrative* Isra MastersDO [...] in the AM and 4 mg PM iahgtiwzwqp-otmbqthic-theyvurd (TRELEGY ELLIPTA) 100-62.5-25 mcg Inhale 1 Puff [...] no edema RESPIRATORY: No dyspnea : neg EDGE STAINER: neg The remainder of the review of [...] Isra Masters DO 11/30/2022 documented in this encounterCleveland Clinic [facility]01-19-2023 Miscellaneous Notes* Telephone Encounter - Erica Serrano RN - 11/24/2022 3:20 PM EST This concern was addressed in the phone encounter on 11/24/22. Patient was called back and informed [facility] will complete Prior Authorization for her sleep study. documented in this encounterCleveland Clinic [facility]01-19-2023 Miscellaneous Notes* Telephone Encounter - Erica Serrano RN - 11/24/2022 3:18 PM EST Contacted Pre[facility] department to confirm they have patient on their list for prior authorization for PAP Titration. They do have patient on list and will be completing her prior authorization. Called and spoke with patient and informed her of the process of our PreAccess department. Patient statedshe understood. All questions answered. * Telephone Encounter - Barber PatelBryMartinez - 11/24/2022 2:46 PM EST SLEEP PHONE Name of caller: Mary Leal Relationship to patient : Self In-state or xxt-nx-pgotj patient: In-State Was permission obtained from patient? Yes Patient identified by Name and Date of . ( Mary Leal, 1970). Yes Reason for Call : Patient stated she spoke to her insurance and they told her that the provider need to call Deuce to see if a PA is needed for the PAP Titration. Number to return call [phone] Okay to leave a message ? Yes Last office visit 10/14/[address] Tuttle virtual Next office visit None documented in this encounterCleveland Clinic [facility]01-19-2023 History of Present illness Narrative* Isra Masters DO - 11/24/2022 8:29 AM EST Images from the original note were not included. [employer] Test Report - [id number] Test start date: 11/17/2022 10:03 AM Hydraulic Corrugating Machine Operator: josephine Interpretation date: 11/24/2022 Ordering physician: Isra Masters DO Referring physician: Patient Information Name: Mary Leal ID: [id number] date: 1970 Height ft. in.: 5' 4 [...] Normal gastric transit Normal small bowel transit [id number] transit in the distal bowel consistent delay post anastomosis Signature _Dr. Masters Date _11/24/2022 documented in this encounterCleveland Clinic [facility]01-17-2023 Miscellaneous Notes* Telephone Encounter - Regina Philippe - 11/22/2022 3:37 PM EST Patient calling to verify that Smart Pill monitor was received at A30. Monitor was sent via Fed [employer] on 11/19/22. Patient is requesting a confirmation. documented in this encounterCleveland Clinic [facility]inte Hospital01-16-2023 Miscellaneous Notes* Telephone Encounter - Erica Serrano RN - 11/21/2022 9:11 AM EST [employer] message sent to patient. Prior Sleep study forwarded to MD to review, Order pended for PAP-titration for provider to review and sign if necessary. documented in this encounterCleveland Clinic South Pointe [facility]01-16-2023 History and physical note * Ydoit Back PA-C - 11/21/2022 8:00 AM EST [facility] TELEHEALTH VIS[facility] Patient has been identified by name and date of : Yes This is a virtual visit using [employer] video visit. It require patient-provider interaction for [...] in the AM and 4 mg PM rvnyddeyblz-eqstdnjkm-kkphinnf (TRELEGY ELLIPTA) 100-62.5-25 mcg Inhale 1 Puff as instructed once daily. No current facility-administered medications for this visit. COVID VACCINATION STATUS: Fully vaccinated REVIEW OF SYSTEMS: Pain Assessment: General: No weight loss, malaise or fevers. Neuro: No history of TIA's, stroke, FILLER PICKER tumor, impaired sensorium, hemiplegia, paraplegia or quadraplegia. [...] requiring medication, no history of angina, CHF, [place], cardiac surgery or stents. Denies rest pain, gangrene or revascularization/amputation for PVD. No history of cardiovascular symptoms or problems. + HLD GI: See HPI : No history of dysuria, frequency or incontinence,, stones or chronic kidney disease EDGE STAINER: Negative for abnormal vaginal bleeding, abnormal vaginal [...] 8:07 AM PAGER/CONTACT #: documented in this encounterCleveland Clinic South Pointe Hospital01-12-2023 Miscellaneous Notes* Addendum Note - Yoni Tuttle [...] - 11/02/2022 12:33 PM EST Received from [facility] Report via fax. 8 pages indexed to chart. documented in this encounterCleveland Clinic South [facility]inte [facility]01-12-2023 History of Present illness Narrative* Annmarie [...] complete. You will be wearing a Data Water Resource Specialist around your neck like a necklace during the test. You must keepthis near you at all times. The Data Water Resource Specialist has an EVENT button. You will be [...] is inside your body. Return the Data Water Resource Specialist to the [facility] after your test is completed. Brittanie Gillespie RN documented in this encounterCleveland Clinic South Pointe Hospital01-09-2023 NotePROCEDURE: XR FOOT RT MIN 3 [...] Electronically authenticated by: ZAIDA ACOSTA Date: 2022-11-14 10:39[facility] [id number] NotePROCEDURE: XR FOOT RT MIN 3 VIEWS [...] Electronically authenticated by: NICKI DACOSTA Date: 2022-11-10 11:44[facility] [id number] Miscellaneous Notes* Telephone Encounter - Annmarie Gillespie RN - 11/10/2022 9:07 AM EST Telephoned patient with SmartPill procedure appointment reminder/instructions. Brittanie Gillespie RN documented in this encounterCleveland Clinic [facility] Hospital01-04-2023 Miscellaneous Notes* Telephone Encounter - Regina Philippe - 11/09/2022 1:20 PM EST Scheduled 11/17 for Smart Pill at 10:30am and Dr. Hannah at 2:00 pm * Telephone Encounter - Isra Masters DO - 11/09/2022 12:19 PM EST Yes that would be fine thanks * Telephone Encounter - Regina Philippe - 11/09/2022 12:06 PM EST Spoke with patient. Smart Pill issue has been resolved, I am currently working with patient, Pre Access and Smart Pill department to expedite scheduling for 1st available. Please advise if appointment with general surgery would be appropriate to discuss surgical intervention. * Telephone Encounter - Karthikeyan Turk RN - 11/09/2022 11:41 AM EST Patient [...] to make it legit. documented in this encounterCleveland Clinic [facility]inte Hospital01-04-2023 Miscellaneous Notes* Telephone Encounter - Wali Doll - 11/09/2022 9:47 AM EST SENT PATIENTS RX TO PREFERRED LOCATION [facility] [phone] Wali Doll BLOOD BANK COORDINATOR documented in this encounterCleveland Clinic South [facility]01-03-2023 Miscellaneous Notes* Telephone Encounter - Regina Philippe - 11/08/2022 11:15 AM EST Per Soumya in provider services at [facility]. No prior auth is needed,coverage is active, patient can proceed with Smart Pill. Placed a new referral. Call Ref # [id number] * Telephone Encounter - Regina Denae - 11/02/2022 3:51 PM EST Spoke with patient. Smart Pill is a covered benefit. Sent email to Smart Pill production scheduler and PFA to assist in scheduling Smart Pill in [...] procedure, she can call Earlene Martin at [phone]. documented in this encounterCleveland Clinic South Pointe Hospital12-19-2022 Miscellaneous Notes* Telephone Encounter - Steffi Ross LPN - 10/24/2022 2:09 PM EST Thank you, let patient know, smart pill is being adressed and patient should receive a call once they have an answer. Steffi Ross LPN * Telephone Encounter - Steffi Ross LPN - 10/24/2022 1:12 PM EST Please advise Thank you Steffi Ross LPN * Telephone Encounter - Nati Hernandez [...] calling: self Call patient at: at home [phone] (home) [phone] (cell) Closing statement: Symptom Call: Thank you for calling [facility], your call is very important. A nurse will call in approximately 2-4 hours during business hours. If this is an emergency, please contact 911. Nati Hernandez documented in this encounterCleveland Clinic [facility] Hospital12-13-2022 Miscellaneous Notes* Telephone Encounter - Brooklyn Valle LPN - 10/18/2022 2:43 PM EST Requested Prescriptions Pending Prescriptions Disp Refills Dexlansoprazole 60 mg CpDM [Pharmacy Med Name: DEXLANSOPRAZOLE DR 60 MG CAP] 30 capsule 5 Sig: take 1 capsule by mouth before breakfast Patient last seen 10/11/2022 documented in this encounterCleveland Clinic South Pointe Hospital12-12-2022 NotePROCEDURE: XR FOOT RT MIN 3 [...] Electronically authenticated by: NICKI DACOSTA Date: 2022-10-17 18:06[facility]12-12-2022 NotePROCEDURE: XR FOOT RT MIN 3 [...] Electronically authenticated by: NICKI DACOSTA Date: 2022-10-17 18:06[facility]12-12-2022 Miscellaneous Notes* Telephone Encounter - Wali Doll - 10/17/2022 9:17 AM EST Faxed order, office notes, demographics, and sleep study to: [facility] name: [facility] fax: [phone] [facility]IMA ph: ALSO SENT A REQUEST FOR PTS PSG FROM [facility] IN [place] documented in this encounterCleveland Clinic South [facility]inte [facility]12-06-2022 History of Present illness Narrative* Isra [...] (FLONASE) 50 mcg/actuation nasal spray Use 1 Berkley in each nostril once daily. carBAMazepine XR (TEGRETOL XR) 400 mg 12 hr tablet Take 400 mg by mouth q 12 HR. ARIPiprazole (ABILIFY) 30 mg tablet Take 30 mg by mouth once daily. albuterol HFA (PROVENTIL HFA, VENTOLIN HFA) 90 mcg/actuation inhaler inhale 2 puffs by mouth INTO THE LUNGS every 4 hours if needed tbdhsjbeohc-tebxmigmi-etsgtvuw (TRELEGY ELLIPTA) 100-62.5-25 mcg Inhale 1 Puff [...] no edema RESPIRATORY: No dyspnea : neg EDGE STAINER: neg The remainder of the review of [...] Isra Masters DO 10/11/2022 documented in this encounterCleveland Clinic South [facility]inte [facility]12-05-2022 Evaluation note* Encounter Date Diagnosis Assessment [...] for rotator cuff healing or recurrent tear [employer] Other 12-01-2022 Evaluation note* Encounter Date Diagnosis [...] note writ ten by Wanda Yang LPN, Clinical Cytopathologist. Edited and approved by Dr. Annette Harris MD. [facility] Other 11-17-2022 Evaluation note* Encounter Date Diagnosis [...] educated regarding the risks and benefits of extermination inspector opioid use. She understands the associated risks [...] note writ ten by Lupillo Amezquita MA, Clinical Cytopathologist. Edited and approved by Dr. Annette Harris MD. [facility] Other 11-17-2022 Evaluation note* Encounter Date Diagnosis Assessment Notes Treatment Notes Treatment Clinical Notes Sep, Lumbosacral spondylosis without myelopathy (ICD-10 - M47.817) [facility] Other 11-09-2022 Evaluation note* Encounter Date Diagnosis [...] note writ ten by Wanda Yang LPN, Clinical Cytopathologist. Edited and approved by Dr. Annette Harris MD. [facility] Other 09-21-2022 NotePROCEDURE: XR ANKLE RT MIN 3 VIEWS, XR FOOT RT MIN 3 VIEWS COMPARISON: 01/06/2021 HISTORY: Pain of right ankle joint FINDINGS: BONES:Remote osteotomy head of the first metatarsal fixed with a single screw. No acute fracture or dislocation. SOFT TISSUES:Negative. No visible soft tissue swelling. EFFUSION:None visible. OTHER: Negative. IMPRESSION: No acute abnormality Electronically authenticated by: NICKI DACOSTA Date: 2022-07-27 19:[address] [place], [place] [address]25209-21-2022 NotePROCEDURE: XR ANKLE RT MIN 3 VIEWS, XR FOOT RT MIN 3 VIEWS COMPARISON: 01/06/2021 HISTORY: Pain of right ankle joint FINDINGS: BONES:Remote osteotomy head of the first metatarsal fixed with a single screw. No acute fracture or dislocation. SOFT TISSUES:Negative. No visible soft tissue swelling. EFFUSION:None visible. OTHER: Negative. IMPRESSION: No acute abnormality Electronically authenticated by: NICKI DACOSTA Date: 2022-07-27 19:[facility]09-20-2022 Miscellaneous Notes* Telephone Encounter - Silvia Ybarra - 07/26/2022 2:56 PM EDT PA for Dexlansoprazole initiated electronically. Awaiting response [employer] ID# [id number] * Telephone Encounter - Tracy Khan PSS - 07/26/2022 1:43 PM EDT Patient needs a prior authorization Medication Order name: Dexlansoprazole 60 mg CpDM Medication: DEXLANSOPRAZOLE 60 MG CAPSULE,BIPHASE DELAYED RELEASE [[id number]] Dispense as Written: No documented in this encounterCleveland [facility]09-20-2022 History of Present illness Narrative* Mary [...] in the AM and 4 mg PM uzlcymrndft-ecndmholl-uuyxwsol (TRELEGY ELLIPTA) 100-62.5-25 mcg Inhale 1 Puff [...] (FLONASE) 50 mcg/actuation nasal spray Use 1 Berkley in each nostril once daily. carBAMazepine XR [...] which included preparing to see the patient, [id number] patient care, completing clinical documentation, obtaining and/or reviewing separately obtained history, performing a medically appropriate examination, counseling and educating the pat ient/family/caregiver, ordering medications, tests, or procedures, and care coordination (not separately reported). Mary Obrien MD Colorectal Surgery documented in this encounterCleveland Clinic [facility]09-20-2022 Nurse Note* Re Sierra MA - 07/26/2022 11:12 AM EDT What is the reason for your visit today? Established patient presents for post op. Who is your referring physician? Are you having poor oral intake? NO Have you had unintentional weight loss of 15 lbs/7 Kg in the last 3-6 months? NO Bowels: Wound: none Temperature: No Drains: No documented in this encounterCleveland Clinic [facility]08-04-2022 NotePROCEDURE: In the coronal projection, without [...] and signed by Quinton Carson on 06/09/2022 1113NoAt[facility] [id number] Miscellaneous Notes* Telephone Encounter - Raquel Mullen - 06/07/2022 3:34 PM EDT Patient needs RX sent to [facility] in [facility]. The previous was sent to pharmacy which [...] process accordingly. Raquel Mullen documented in this encounterCleveland Clinic [facility]07-21-2022 Evaluation note* Encounter Date Diagnosis Assessment [...] note writ ten by Lupillo Amezquita MA, Clinical Cytopathologist. Edited and approved by Dr. Annette Harris MD. [facility] Other 07-05-2022 Evaluation note* Encounter Date Diagnosis [...] Patient care instructions given in writing by [facility] document. [facility] Other 06-28-2022 Miscellaneous Notes* Telephone Encounter - [...] concerns at this time. documented in this encounterCleveland Clinic [facility]06-21-2022 Miscellaneous Notes* Telephone Encounter - See [...] procedure on 03/28. Thanks! documented in this encounterCleveland Clinic [facility]06-17-2022 History of Present illness Narrative* Jessi Sheets APRN.KWESI - 04/22/2022 12:20 PM EDT COLORECTAL SURGERY April 22, 2022 Mary Leal 51 year old Chief Complaint: post-op visit History of Present Illness: Mary Lael is a 51 year old female with [...] (FLONASE) 50 mcg/actuation nasal spray Use 1 Berkley in each nostril once daily. carBAMazepine XR [...] THE LUNGS every 4 hours if needed hldxggjsqhf-gxgejlufx-xvtpymuy (TRELEGY ELLIPTA) 100-62.5-25 mcg Inhale 1 Puff [...] and/or complications of treatment plan: jesu Sheets APRN.KWESI Colorectal Surgery documented in this encounterCleveland Clinic [facility]06-17-2022 Nurse Note* Mary Mena MA - 04/22/2022 12:06 PM EDT .What is the reason for your visit today? Post op Who is your referring physician? Self Are you having poor oral intake? NO Have you had unintentional weight loss of 15 lbs/7 Kg in the last 3-6 months? NO Bowels: regular Wound: none Temperature: No Drains: No documented in this encounterCleveland Clinic [facility]06-02-2022 Miscellaneous Notes* Telephone Encounter - Rachael - 04/07/2022 12:35 AM EDT Record ID: [id number] Patient name: Mary Leal Date: April 06, [...] likely is it that you would recommend [facility] to a friend or family member? -> likely Please tell me what you liked best about your hospital experience: -> The nurses documented in this encounterCleveland Clinic [facility]05-31-2022 NoteHNO ID: [id number] Author: Pravin Ladd MD Service: Colorectal Author Type: Resident Type: Progress Notes Filed: 04/05/2022 7:52 AM Note Text: COLORECTAL SURGERY PROGRESS NOTE Mary Leal [id number] ASSESSMENT AND PLAN Mary Leal is a [...] - General Pravin Ladd MD General Surgery residentMount Auburn HospitalAaxazupe81-51-7740 NoteHNO ID: [id number] Author: Nita Lamas MD Service: Colorectal Author Type: Fellow Type: Progress Notes Filed: 04/04/2022 9:40 AM Note Text: COLORECTAL SURGERY PROGRESS NOTE Mary Leal [id number] ASSESSMENT AND PLAN Mary Leal is a [...] Nita Lamas MD Colorectal Fellow 04/04/2022 9:40 [facility]05-29-2022 NoteHNO ID: [id number] Author: Pravin Ladd MD Service: Colorectal Author Type: Resident Type: Progress Notes Filed: 04/03/2022 8:03 AM Note Text: COLORECTAL SURGERY PROGRESS NOTE Mary Leal [id number] ASSESSMENT AND PLAN Mary Leal is a [...] - General Pravin Ladd MD General Surgery ResidentMount Auburn HospitalZhnrkyal09-21-6724 NoteHNO ID: [id number] Author: Nancy Cadena MD Service: Colorectal Author Type: Resident Type: Progress Notes Filed: 04/02/2022 8:34 AM Note Text: COLORECTAL SURGERY PROGRESS NOTE Mary Leal [id number] ASSESSMENT AND PLAN Mary Leal is a [...] Nancy Cadena MD General Surgery Resident, PGY-2 [id number] NoteHNO ID: [id number] Author: Nancy Cadena MD Service: Colorectal Author Type: Resident Type: Progress Notes Filed: 04/01/2022 7:15 AM Note Text: Attestation signed by Mary Obrien MD at 04/01/2022 7:21 PM [facility] STAFF PHYSICIAN NOTE OF PERSONAL INVOLVEMENT IN [...] 2022 COLORECTAL SURGERY PROGRESS NOTE Mary Leal [id number] ASSESSMENT AND PLAN Mary Leal is a [...] Nancy Cadena MD General Surgery Resident, PGY-2 [id number] [id number] NoteHNO ID: [id number] Author: Yolanda Lamb MD Service: Colorectal Author Type: Resident Type: Progress Notes Filed: 03/31/2022 9:08 AM Note Text: COLORECTAL SURGERY PROGRESS NOTE Mary Leal [id number] ASSESSMENT AND PLAN Mary Leal is a [...] Intake/Output Summary (Last 24 hours) at 03/31/2022 09 Last data filed at 03/31/2022 0519 Gross [...] RESECTION AND ANASTOMOSIS - General Yolanda Lamb MDMount Auburn HospitalEtiriadj66-78-2930 NoteHNO ID: [id number] Author: Pravin Ladd MD Service: Colorectal Author [...] 30, 2022 COLORECTAL SURGERY PROGRESS NOTE Mary Ornelasgs [id number] ASSESSMENT AND PLAN Maryjonathan Leal is a 51 year old female with PMHx Asthma, HTN, BPD, Dyslipidemia and colonic inertia who is now s/p Hand assisted TAC, EI takedown + OANH 03/28 - 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 - Advance to GI soft diet - [...] RESECTION AND ANASTOMOSIS - General Pravin Ladd MDMount Auburn HospitalAlatqfbk03-21-9119 NoteHNO ID: [id number] Author: ELIZABETH Dias Service: Care Management Author Type: Boat Repairer Type: Care Mgt Initial Assessment Filed: 03/29/2022 3:47 PM Note Text: CARE MANAGEMENT: ASSESSMENT AND DISCHARGE PLAN SERVICE DATE: March 29, 2022 SERVICE TIME: 1:45 PRIMARY CARE PHYSICIAN: Eliceo Gómez DO ADMISSION STATUS: Inpatient NEEDS PRIOR TO DISCHARGE Needs Prior to Discharge: Ready for Discharge POTENTIAL TRANSITION PLANS No Services Indicated Based on clinical judgement, Care Management will address the following needs: No transitional/discharge planning needs at this time ADVANCE DIRECTIVES Current Advance Directive: None Stock Clerk [employer] Attempted to Assist with AD Completion: Yes [...] Housing Stability: Not on file PATIENT SCREEN Patient/Cad Programmer Stated Goals: To be cured/healed Under the [...] March 29, 2022 TIME: 3:45 PM PHONE: [phone] [id number] NoteHNO ID: [id number] Author: Pravin Ladd MD Service: Colorectal Author Type: Resident Type: Progress Notes Filed: 04/01/2022 5:50 AM Note Text: COLORECTAL SURGERY PROGRESS NOTE Mary Leal [id number] ASSESSMENT AND PLAN Mary Leal is a 51 year old female with PMHx Asthma, HTN, BPD, Dyslipidemia and colonic inertia who is now s/p Hand assisted TAC, EI takedown + OANH 03/28 - 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 - Magnesium replacement for [...] RESECTION AND ANASTOMOSIS - General Pravin Ladd MDMount Auburn HospitalIzjpdhpj63-46-5732 NoteHNO ID: [id number] Author: Nathanael Craig DO Service: Anesthesiology Author Type: Anesthesiologist Type: Anesthesia Procedure Notes Filed: 03/28/2022 4:16 PM Note Text: ANESTHESIOLOGY PROCEDURE NOTE Peripheral Nerve Block General Information Procedure Start Time/Medication Administration: 03/28/2022 3:50 PM Procedure End time: 03/28/2022 3:55 PM Patient location during procedure: OR Timeout Performed Pre-procedure: timeout performed Consent Obtained: Yes 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: 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 and arm band Reason for block: post-op [...] 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 and 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 Reason for block: post-op pain management/at surgeon's [...] March 28, 2022 TIME: 4:14 PM CSN: [id number] [id number] NoteHNO ID: [id number] Author: Carmen Stanley APRN.CHIEF NURSE Service: Anesthesiology Author Type: Nurse Take Off Worker Type: Anesthesia Procedure Notes Filed: 03/28/2022 9:49 AM Note Text: ANESTHESIOLOGY PROCEDURE NOTE Airway General Information Procedure Start Time/Medication Administration: 03/28/2022 9:21 AM Patient location during procedure: OR 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, 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 and patient Staffing CHIEF NURSE: Carmen Stanley APRN.CHIEF NURSE Performed by: BECCA Indications and Patient Condition Preoxygenated: yes Difficult [...] March 28, 2022 TIME: 9:49 AM CSN: [id number] [id number] NoteHNO ID: [id number] Author: Carmen Stanley APRN.CHIEF NURSE Service: Anesthesiology Author Type: Nurse Take Off Worker Type: Anesthesia Procedure Notes Filed: 03/28/2022 9:49 [...] March 28, 2022 TIME: 9:48 AM CSN: [id number] Miscellaneous Notes* Telephone Encounter - See Wong [...] colon. Would like a call back at [phone] documented in this encounterCleveland Clinic [facility]05-10-2022 Miscellaneous Notes* Telephone Encounter - Jennie Moreno RN - 03/15/2022 2:39 PM EDT Outside medical record EGD H Pylori biopsy received by fax. Scanned into [employer] under scanned documents. Hard copy handed to Dr. Masters. Per Dr Masters- please call patient and let her know the H Pylori biopsy is negative. Called patient . Message relayed. No questions at this time. * Telephone Encounter - Karthikeyan Turk RN - 03/15/2022 2:21 PM EDT Called [facility] and I was transferred to medical records. Requesting a cover sheet with the request result be faxed to them at [phone]. H Pylori result request faxed with confirmation. * Telephone Encounter - Karthikeyan Turk RN - 03/15/2022 2:21 PM EDT Images from the original note were not included. DO Leo Mariano Sp Dd Clinical Pool Please contact [facility] [phone] to see if the H pylori biopsy is back yet from her EGD there documented in this encounterCleveland Clinic [facility]05-10-2022 Evaluation note* Encounter Date Diagnosis Assessment [...] note writ ten by Wanda Yang LPN, Clinical Cytopathologist. Edited and approved by Dr. Annette Harris MD. [facility] Other 05-10-2022 Miscellaneous Notes* Telephone Encounter - Silvia Amada - 03/15/2022 1:24 PM EDT PA for Dexilant renewal initiated through [employer]. Awaiting response ID# [id number] Rx BIN [id number] Rx PCN MCAIDOH Rx Grp [id number] documented in this encounterCleveland Clinic [facility]05-10-2022 Miscellaneous Notes* Telephone Encounter - See Wong RN - 03/15/2022 9:28 AM EDT She called the office with complaints of dark red blood in her ostomy bag for the last 2 weeks. [place] down in [place] when it started. She had an EGD in [place] that showed gastritis. She followed up with [...] concerns at this time. documented in this encounterCleveland Clinic [facility]05-10-2022 History of Present illness Narrative* Isra [...] seem be musculoskeletal in nature.EGD done in [facility] showed some gastritis and duodenitis. Current [...] (FLONASE) 50 mcg/actuation nasal spray Use 1 Berkley in each nostril once daily. carBAMazepine XR [...] THE LUNGS every 4 hours if needed bdfcvpmpbov-lilpwyhgi-perbnqnt (TRELEGY ELLIPTA) 100-62.5-25 mcg Inhale 1 Puff [...] no edema RESPIRATORY: No dyspnea : neg EDGE STAINER: neg The remainder of the review of [...] Isra Masters DO 03/15/2022 documented in this encounterCleveland Clinic [facility]05-09-2022 Instructions* Patient Instructions* Urmila Alexander APRN.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 - 03/14/2022 10:43 AM EDT PATIENT PREOPERATIVE INSTRUCTIONS Mary Obrien MD has scheduled you for your procedure at [facility]: [phone] --[phone] [address]. Please check in on the1st floor at [...] Procedures: - YOU MUST HAVE A RESPONSIBLE FLAME HARDENING MACHINE OPERATOR TAKE YOU HOME. A PIZZAMAKER OR CAPSULE MAKER CANNOT BE MADE A RESPONSIBLE FLAME HARDENING MACHINE OPERATOR. - We recommend that a responsible person [...] Advance Directive, please fax a copy to [phone] or email to for it to be [...] your chart that day. documented in this encounterCleveland Clinic [facility]05-09-2022 History and physical note * Urmila Alexander APRN.CNP - 03/14/2022 10:30 AM EDT Images from the original note were not included. HISTORY AND PHYSICAL EXAMINATION SERVICE DATE: 03/14/2022 SERVICE TIME: 11:03 AM PRIMARY CARE PHYSICIAN: Eliceo Gómez DO REASON FOR VISIT: Mary Leal is [...] fevers. Neurological: No history of TIA's, stroke, FILLER PICKER tumor, impaired sensorium, hemiplegia, paraplegia orquadraplegia. No [...] > 1 time per night or hematuria. EDGE STAINER: Negative for abnormal vaginal bleeding, abnormal vaginal [...] TONSILLECTOMY HX 07/2021 revision VAGINAL HYSTERECTOMY 2014 [facility] 10/2015 for endometriosis, has remaining both FAMILY [...] every 4 hours if needed Taking Yes yltlifupqaf-xapsctmxg-gewdjgit (TRELEGY ELLIPTA) 100-62.5-25 mcg Inhale 1 Puff [...] (FLONASE) 50 mcg/actuation nasal spray Use 1 Berkley in each nostril once daily. No medication [...] or any previous visit (from the past 74411 hour(s)). EKG: Assessment HTN (hypertension) Assessment: Managed [...] of difficult airway No abnormal airway history NPM9PB3-VFKk Score: Age: <65 Sex: Female Hypertension history: [...] 10:30 AM PAGER/CONTACT #: documented in this encounterCleveland Clinic [facility] Po[facility] Hospital04-25-2022 Miscellaneous Notes* Telephone Encounter - Isra Masters DO - 02/28/2022 10:46 AM EDT Pt cannot take it twice a day as there is actually 2 doses of the med in one pill. * Telephone Encounter - Karthikeyan Turk RN - 02/28/2022 10:11 AM EDT Patient calling requesting script refill for Dexilant. She takes 60 mg once daily. She says it's nolonger working. She is asking if she can take it twice daily. MEREDITH = 06/2021. VIRTUAL appt placed ON HOLD for Monday, 03/02, at 0900 - routed to clerical pool to make it legit. Please advise. documented in this encounterCleveland Clinic South Po[facility] Hospital04-15-2022 Instructions* Patient Instructions* Nelsy Chávez APRN.CNP - 02/18/2022 1:18 PM EDT Healing as expected from surgery. You have a pinpoint area of suture just under the vaginal epithelium surface that may need more time to fully heal. Please call the office if you would like to try vaginal estrogen cream or with any questions/concerns. documented in this encounterCleveland Clinic [facility]04-15-2022 History of Present illness Narrative* Nelsy Chávez APRN.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 - 02/18/2022 10:00 AM EDT Female Pelvic [...] no Pain: no Abnormal Vaginal Discharge: no EDGE STAINER HISTORY: Last pap: cannot remember; Last mammogram: She has never had a mammogram LMP: No LMP recorded. Patient has had a hysterectomy.; Menopause n/a: Menstrual history: NA; Deliveries: I have confirmed and edited as necessary, the PFSH obtained by others. Nelsy Chávez APRN.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 Enterprise Architect offered: Patient declines. OBJECTIVE: There were no [...] if this helps. She is traveling to [place] to see her ailing father for two weeks and would like to wait for now to see if things resolve. She knows she can call the office if she changes her mind and would like to trial vaginal estrogen Nelsy Chávez APRN.KWESI documented in this encounterCleveland Clinic [facility] Hospital04-08-2022 History of Present illness Narrative* Flaca Rosasbeatriz, PT - 02/11/2022 10:42 AM EDT Episode Visit Count: 4 Therapist That Will Oversee The Plan Of Care: La then transfer to [facility] Bartholomew Start of Care Date: 01/18/22 Onset Date: 12/24/21 Plan of Care Certification Date: 01/18/22 Next Certification Due Date: 03/19/22 Patient Identified by Name and Date of : Yes REHABILITATION AND SPORTS THERAPY PHYSICAL THERAPY TREATMENT NOTE ASSESSMENT: Maryjose Leal tolerated the session with no issues. [...] 15 Flaca Bartholomew PT documented in this encounterCleveland Clinic [facility]04-05-2022 Nurse Note* Re Sierra MA - [...] Temperature: No Drains: No documented in this encounterCleveland Clinic South [facility] Hospital04-05-2022 History of Present illness Narrative* Mary Obrien MD - 02/08/2022 2:40 PM EDT COLORECTAL SURGERY February 08, 2022 Mary Ornelasgs Chief Complaint: follow up History of [...] (FLONASE) 50 mcg/actuation nasal spray Use 1 Berkley in each nostril once daily. carBAMazepine XR [...] THE LUNGS every 4 hours if needed smwsodljshs-gkzpatfzn-nghkxozs (TRELEGY ELLIPTA) 100-62.5-25 mcg Inhale 1 Puff [...] medical complications of surgery including DVT/PE, PNA, [place], stroke, and . The patient understands these risks and is in agreement with proceeding. Medical Decision Making: Data Reviewed: Tests & Documents Reviewed/ordered: Review of prior notes from myself, OR, Dr. Wang Review of prior operative reports I have discussed Mary Leal's treatment plan and/or results with the patient. Mary Obrien MD Colorectal Surgery documented in this encounterCleveland Clinic [facility]04-05-2022 History of Present illness Narrative* Magali Mitchell APRN.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 - 02/08/2022 11:04 AM EDT Female Pelvic [...] you received about pain medications helpful? Yes Enterprise Architect offered:Patient declines OBJECTIVE: BP 113/76 Pulse 74 [...] understanding. Magali Mitchell APRN.KWESI documented in this encounterCleveland Clinic South Pointe Hospital03-29-2022 Miscellaneous Notes* Telephone Encounter - Steffi Ross LPN - 02/01/2022 11:08 AM EDT [facility] 06-10[facility]21 Pharmacy and Rx request verified. Please file if appropriate. Thank you Steffi Ross LPN documented in this encounterCleveland Clinic South Pointe Hospital03-28-2022 NoteHNO ID: [id number] Author: Newton Woodward PT Service: ? Author Type: Physical Therapist Type: Progress Notes Filed: 01/31/2022 1:23 PM Note Text: Episode Visit Count: 3 Therapist That Will Oversee The Plan Of Care: La then transfer to Carroll Bartholomewn Start of Care Date: 01/18/22 Onset Date: [...] to Home;Specialty Service Patient transferring care to: [facility]- [facility] SUBJECTIVE: Patient Reason for Visit: lack of [...] untimed codes) : 40 Newton Woodward PT, [facility]03-28-2022 History of Present illness Narrative* Newton Woodward, PT - 01/31/2022 10:42 AM EDT Episode Visit Count: 3 Therapist That Will Oversee The Plan Of [facility] Date: 01/18/22 Onset Date: [...] to Home;Specialty Service Patient transferring care to: [facility] Fl[facility] Bartholomew SUBJECTIVE: Patient Reason for Visit: [...] Newton Woodward PT, DPT documented in this encounterCleveland Clinic South [facility]inte Hospital03-21-2022 NoteHNO ID: [id number] Author: Newton Woodward PT Service: ? Author Type: Physical Therapist Type: Progress Notes Filed: 01/24/2022 1:23 PM Note Text: Episode Visit Count: 2 Therapist That Will Oversee The Plan Of Care: La then transfer to [place] Start of Care Date: 01/18/22 Onset Date: [...] untimed codes) : 45 Newton Woodward PT, [facility]03-15-2022 NoteHNO ID: [id number] Author: Jessi Isaacs, PT Service: ? Author [...] Planned: 8 Planned Treatment Interventions: Therapeutic exercise (49865);Neuromuscular re-education (12063);Manual therapy (26066);Therapeutic activities (01410);Self-penitentiary management (40865);Patient/Family/Caregiver Education PLAN FOR NEXT VISIT: PFM dynamics; biofeedback Patient demonstrates good understanding of plan of care and treatment. The above goals and plan of care were discussed and agreed upon by patient/family. Transfer of Care Due To: Closer to Home (patient to transfer in February 2022) Patient transferring care to: [facility] SUBJECTIVE: Mary Leal is a [...] function/quality of life. 50 (more content not included)...[facility] JacksonFbghvbda33-45-0147 NoteHNO ID: [id number] Author: Moni Munguia RN Service: Care Management Author Type: Registered Nurse Type: Care Mgt Progress Note Filed: 12/27/2021 4:17 PM Note Text: CARE MANAGEMENT DISCHARGE NOTE SERVICE DATE: 12/27/2021 SERVICE TIME: 4:14 PM LOS: 3 days Admission Date: 12/24/2021 DISCHARGE ARRANGEMENT (list agency and phone number) Discharge Arrangement: Home with Home Health Provider Name: [address] CAREGIVER ASSESSMENT: HANDOFF COMMUNICATION: Handoff to: Primary Care Physician Primary Care Physician Name/Phone: Eliceo Gómez Jr [phone] TRANSPORTATION ARRANGEMENTS: Transportation Arrangements: N/A The Pt is accepted by [address] for new ostomy care. The SOC will be within 24 to 48 hrs. The pt will be contacted directly with the SOC. The Pt verbalized agreement with this dc plan. SIGNATURE: Moni Munguia RN PATIENT NAME: Mary Leal DATE: December 27, 2021 TIME: 4:14 PM PAGER/CONTACT #: [phone] NoteHNO ID: [id number] Author: Parish Celeste DO Service: Colorectal Author [...] - Pain and nausea control -> d/c FINISHING AND SHIPPING SUPERVISOR - D/c entereg - Culturelle - Continue [...] 0659 12/27/21 0700 - 12/28/21 0659 Shift 8534-8384 0614-4718 1560-4272 24 Hour Total 1340-3763 6362-7765 9311-9997 24 Hour Total INTAKE PO 60 60 PO 60 60 IV 2100 2100 Volume (mL) (lactated ringers iv infusion) 2100 2100 Shift Total 2160 2160 OUTPUT Urine 4348 575 6515 2300 200 200 Void (ml) 300 1000 1300 200 200 Output ( Indwelling Urinary Catheter 12/24/21 Call 16 Fr) 1000 1000 Emesis 0 0 Emesis (ml) 0 0 Ostomy 250 125 375 Ileostomy 1 250 125 375 # of BMs Number of BMs 0 x 0 x Shift Total 5807 601 1964 2675 200 200 Weight (kg) 82.1 82.1 82.1 82.1 82.1 82.1 82.1 82.1 Recent Labs 12/26/21 0755 12/25/21 0606 WBC -- 5.96 HB -- 11.6 HCT -- 35.2* PLT -- 271 NA 139 141 K 4.0 4.0 CHLOR 102 104 CO2 28 28 CREAT 0.62* 0.72 BUN 10 12 GLUC 71 91 CA 8.5 8.5 Parish Celeste DO General Surgery, PGY-4 [phone] After 6 pm and on the weekends please page [phone] 12-26-2021 NoteHNO ID: [id number] Author: Jenifer Ayala MD Service: Colorectal Author Type: Fellow Type: Progress Notes Filed: 12/26/2021 12:13 PM Note Text: GENERAL SURGERY PROGRESS NOTE Name: Mary Leal 12/26/2021 12:11 PM Interval Events: Patient doing well post-operatively. No acute events overnight. Tolerating CLD diet without nausea or vomiting. Stoma productive of bilious fluid + gas Pain well controlled with FINISHING AND SHIPPING SUPERVISOR + oral pain medication (feels most relief from po oxycodone). Assessment and Plan: 51 year old female with pelvic organ prolapse and chronic constipation, likely slow transit but with possible component of pelvic outlet obstruction and with discordant testing. Patient underwent laparoscopic protopexy on 12/24/21 surgery was uneventful. Post-operative course has been uncompliacted. Pain control- Tylenol Gabapentin Toradol FINISHING AND SHIPPING SUPERVISOR: Dilaudid, tegretol, klonopin, requip, trintellix, oxycodone Cardiac- [...] any questions or concerns page [facility] Blue [phone] Objective Physical exam: BP 117/66 Pulse 77 [...] productive of bilious fluid + gas Date 12/25/21699 - 12/26/21 0659 12/26/21 07 - 12/27/21 0659 Shift 3187-8546 3990-6786 0479-1225 24 Hour Total 9993-6263 7696-6939 7424-9119 24 Hour Total INTAKE PO 60 60 PO 60 60 IV 213 668 881 Volume (mL) (lactated ringers iv infusion) 213 668 881 Shift Total 273 668 941 OUTPUT Urine 897 494 4459 1000 Void (ml) 0 0 Output ( Indwelling Urinary Catheter 12/24/21 Call 16 Fr) 451 576 5196 1000 Emesis 0 0 Emesis (ml) 0 0 Ostomy 100 100 Ileostomy 1 100 100 # of BMs Number of BMs 0 x 0 x Shift Total 947 401 0463 1000 Weight (kg) 82.1 82.1 82.1 82.1 [...] Diagnosis Date Noted - Pelvic floor dysfunction 12/24/2021[id number] NoteHNO ID: [id number] Author: Sonido Owen MD Service: Colorectal Author [...] been uncompliacted. Pain control- Tylenol Gabapentin Toradol FINISHING AND SHIPPING SUPERVISOR: Dilaudid, tegretol, klonopin, requip, trintellix Cardiac- Vitals: [...] Owen MD General Surgery PGY 2 Pg [phone] For any questions or concerns page [facility] Blue [phone] Objective Physical exam: BP 111/61 Pulse 86 Temp 37.1 ?C (98.7 ?F) (Axillary) Resp 18 Ht 162.6 cm (5' 4.02 ) Wt 82.1 kg (181 lb) SpO2 93% BMI 31.05 kg/m? General:Alert, Oriented x 3 and No acute distress Respiratory: Negative for SOB/ALLISON, cough or wheezing. on RA Abdomen: soft non-distended appropriately-tender, Incisions C/D/I, ostomy in place, pink viable Date 12/24/21 0700 - 12/25/21 0659 12/25/21 0700 - 12/26/21 0659 Shift 8711-6666 7674-0930 1090-6612 24 Hour Total 7292-2316 5704-0129 7156-8126 24 Hour Total INTAKE PO 240 120 360 PO 240 120 360 IV 3100 3100 Volume (mL) (lactated ringers iv infusion) 1800 1800 Volume (mL) (lactated ringers iv infusion) 1300 1300 Shift Total 3100 469 213 4309 OUTPUT Urine 200 588 644 6472 OR Urine Output 200 200 Output ( Indwelling Urinary Catheter 12/24/21 Call 16 Fr) 300 500 800 Emesis 0 0 0 Emesis (ml) 0 0 0 Ostomy 0 0 0 Ileostomy 1 0 0 0 # of BMs Number of BMs 0 x 0 x 0 x Blood 50 50 Estimated Blood loss 50 50 Shift Total 250 880 581 5491 Weight (kg) 82.1 82.1 82.1 82.1 82.1 [...] Diagnosis Date Noted - Pelvic floor dysfunction 12/24/2021[id number] NoteHNO ID: [id number] Author: Carmen Stanley APRN.CRNA Service: Anesthesiology Author Type: Nurse Take Off Worker Type: Anesthesia Procedure Notes Filed: 12/24/2021 8:44 [...] Imaging Guidance Used: No SIGNATURE: Carmen Stanley APRN.CHIEF NURSE PATIENT NAME: Mary Leal DATE: December 24, 2021 TIME: 8:44 AM CSN: [id number] NoteHNO ID: [id number] Author: Carmen Stanley APRN.CRNA Service: Anesthesiology Author Type: Nurse Take Off Worker Type: Anesthesia Procedure Notes Filed: 12/24/2021 8:44 AM Note Text: ANESTHESIOLOGY PROCEDURE NOTE Airway General Information Procedure Start Time/Medication Administration: 12/24/2021 8:22 AM Patient location during procedure: OR 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 Edited and approved by Dr. Annette Harris MD. [facility] Other 11-01-2021 Evaluation note* Encounter Date Diagnosis [...] note writ ten by Lupillo Amezquita MA, Clinical Cytopathologist. Edited and approved by Dr. Annette Harris MD. [facility] Other 10-14-2021 Evaluation note* Encounter Date Diagnosis [...] no improvement in 2 to 3 days. [facility] Other 10-08-2021 Evaluation note* Encounter Date Diagnosis [...] Patient care instructions given in writting by [facility] At Home document [facility] Other 10-07-2021 Evaluation note* Encounter Date Diagnosis [...] Aug, Other chronic pain (ICD-10 - G89.29) [facility] Other 09-22-2021 Evaluation note* Encounter Date Diagnosis [...] Jul, Other chronic pain (ICD-10 - G89.29) [facility] Other 03-01-2021 Note [id number]:127[facility] 01-04-2021 NoteCystoscopy with Botox injection ? Voiding [...] if you have a fever over 100 degrees.[facility] 11-11-2020 NoteChief Complaint Pt is here [...] coordinating care. Follow-up With When Contact Information Dawna Marmolejo MD [address] [place] [address]- [phone] Additional Instructions: F/u in 1yr. Patient Education Urinary Frequency I, Christy Gill , personally scribed for Dr. Marmolejo on 11/11/2020 12:07:15. Electronically signedby scribblanca Gill on 11/11/2020 12:07:15. Documentation recorded by the scribChristy rios, accurately [...] deficit disorder Bipolar disorder (more content not included)...[facility] Comment on above:Result Comment: Electronically Signed By: Dawna Marmolejo MD\.br\Date and Time Signed: 11/11/2111:16 EST\.br\Electronically Co-Signed By: Christy Gill MA\.br\Date and Time Co-Signed: 11/11/20 12:07 [id number]:127[facility] HospitalChief complaint Narrative - Reported* MARY LEAL [...] diverting colostomy with3 anastomosis performed. While in [place] with her GI bleed and primarily gastric [...] * I believe minor troponin elevation in [place] was simply at small type II non- [place] troponin elevationrelated to inflammation and gastritis and [...] colectomy. She can follow-up as needed otherwise. [facility] Work Phone: Evaluation note* Diagnosis Pelvic floor dysfunction- Primary Pelvic muscle wasting Lack of coordination Follow-up examination after colorectal surgery Follow-up examination, following other surgery [facility] Diagnosis Gastroesophageal reflux disease, unspecified whether esophagitis present [facility] Diagnosis Follow-up examination after colorectal surgery- Primary Follow-up examination, following other surgery [facility] Diagnosis Post-operative state- Primary Other postprocedural status Yeast infection of the skin Candidiasis of skin and nails [facility] Diagnosis Pelvic floor dysfunction- Primary Pelvic muscle wasting Lack of coordination Follow-up examination after colorectal surgery Follow-up examination, following other surgery documented in this encounter [facility] note* Diagnosis Postoperative state- Primary Other postprocedural status Attention to ileostomy (HCC) Attention to ileostomy documented in this encounter [facility] note* Diagnosis Preop examination- Primary Preoperative [...] Attention to ileostomy documented in this encounter [facility] note* Diagnosis Gastroesophageal reflux disease, unspecified whether esophagitis present Chronic idiopathic constipation Unspecified constipation Attention to ileostomy ([facility]) Attention to ileostomy documented in this encounter [facility] note* Diagnosis Follow-up examination after colorectal surgery- Primary Follow-up examination, following other surgery Pelvic floor dysfunction Pelvic muscle wasting documented in this encounter [facility] noteNo [employer] Other evaluation noteNoEnvisage Technologies Other evaluation note* Diagnosis Follow-up examination after colorectal surgery- Primary Follow-up examination, following other surgery Periumbilical abdominal pain Abdominal pain, periumbilic Outlet dysfunction constipation Colonic inertia Other functional disorders of intestine documented in this encounter [facility] noteNo assessment information [facility] Work Phone: Evaluation note* Diagnosis Gas bloat syndrome- Primary Chronic idiopathic constipation Unspecified constipation Gastroparesis documented in this encounter [facility] note* Diagnosis Gastroesophageal reflux disease, unspecified whether esophagitis present documented in this encounter [facility] note* Diagnosis Gastroparesis- Primary documented in this encounter [facility] note* Diagnosis CHUCKIE (obstructive sleep apnea)- Primary Obstructive sleep apnea (adult) (pediatric) documented in this encounter [facility] note* Diagnosis Pre-op exam- Primary Preoperative examination, unspecified Primary hypertension Unspecified essential hypertension Mild persistent asthma without complication Unspecified asthma Gastroparesis CHUCKIE (obstructive sleep apnea) Obstructive sleep apnea (adult) (pediatric) documented in this encounter [facility] note* Diagnosis CHUCKIE (obstructive sleep apnea)- Primary Obstructive sleep apnea (adult) (pediatric) documented in this encounter [facility] note* Diagnosis Chronic idiopathic constipation- Primary Unspecified constipation Nausea Nausea alone documented in this encounter [facility] note* Diagnosis Gastroesophageal reflux disease with esophagitis without hemorrhage- Primary documented in this encounter [facility] note* Diagnosis Colonic inertia- Primary Other functional disorders of intestine Pelvic floor dysfunction Pelvic muscle wasting Nausea Nausea alone Gastroparesis documented in this encounter [facility] note* Diagnosis Pylorospasm- Primary Functional dyspepsia Dyspepsia and other specified disorders of function of stomach Gastroesophageal reflux disease with esophagitis without hemorrhage documented in this encounter [facility] note* Diagnosis Gastroesophageal reflux disease, unspecified whether esophagitis present documented in this encounter [facility] note* Diagnosis CHUCKIE (obstructive sleep apnea)- Primary Obstructive sleep apnea (adult) (pediatric) documented in this encounter [facility] note* Diagnosis Pylorospasm- Primary Functional dyspepsia Dyspepsia and other specified disorders of function of stomach Gastroesophageal reflux disease with esophagitis without hemorrhage documented in this encounter [facility] note* Diagnosis Gastroparesis- Primary documented in this encounter [facility] note* Diagnosis Preop examination- Primary Preoperative examination, unspecified Nausea Nausea alone CHUCKIE (obstructive sleep apnea) Obstructive sleep apnea (adult) (pediatric) Mild persistent asthma without complication Unspecified asthma Gastroesophageal reflux disease, unspecified whether esophagitis present Gastroparesis documented in this encounter [facility] note* Diagnosis 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 Personal history of other diseases of digestive system documented in this encounter [facility] note* Diagnosis Gastroesophageal reflux disease, unspecified whether esophagitis present documented in this encounter [facility] note* Diagnosis Incomplete bladder emptying- Primary Constipation, unspecified constipation type Urinary urgency Urgency of urination Urinary frequency Nocturia documented in this encounter [facility] note* Diagnosis Upper abdominal pain- Primary Abdominal pain, other specified site documented [facility] [place] Diagnosis Burning with urination- Primary Dysuria documented in this encounter [facility] note* Diagnosis Ashley vaginitis Candidiasis of vulva and vagina documented [facility] encounter [facility] Narrative - Reported* Type Description Date [...] see above list Hospitalization History respiratory 02/2020 [facility] Other [facility] general Narrative - 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[employer]) Other history general Narrative - Reported* Type Description Date [...] see above list Hospitalization History respiratory 02/2020 [facility] Other InstructionsNot on filedocumented in this encounter [facility] for referral (narrative)* Outpatient Procedure (Routine) - Pending Review Specialty Diagnoses / Procedures Referred By Gustavo salaazr Referred To Contact [facility] Diagnoses Gastroparesis Procedures CAPSULE ENDOSCOPY Isra Kitchen DO [facility] [address] [place] [address] [facility] [address] [place] [address] Referral ID Status Reason Start Date Expiration Date Visits Requested Visits Authorized [id number] Pending Review Auto-Generat ed Referral 10/11/2022 10/11/2023 1 1 [facility] for referral (narrative)* Outpatient Procedure (Routine) - Pending Review Specialty Diagnoses / Procedures Referred By Contac t Referred To Contact [facility] Diagnoses Chronic idiopathic constipation Procedures SIGMOIDOSCOPY SIGMOIDOSCOPY FLX DX W/COLLJ SPEC BR/WA IF PFRMD Isra Masters DO [facility] [address] [place] [address] [address] Referral ID Status Reason Start Date Expiration Date Visits Requested Visits Authorized [id number] Pending Review Auto-Generat ed Referral 11/30/2022 11/30/2023 1 [facility] Outpatient Procedure (Routine) - Pending Review Specialty Diagnoses / Procedures Referred By Contac t Referred To Contact [facility] Diagnoses Gastroparesis Procedures EGD - THERAPEUTIC, EUS, OR TUBE INTERVENTIONS ESOPHAGOGASTRODUODENOSC OPY TRANSORAL DIAGNOSTIC STOMACH SURGERY PROCEDURE [place] [address] [address] Referral ID Status Reason Start Date Expiration Date Visits Requested Visits Authorized [id number] Pending Review Auto-Generat ed Referral 01/11/2023 01/12/2024 1 1 [facility] Outpatient Procedure (Routine) - Pending Review Specialty Diagnoses / Procedures Referred By Contac t Referred To Contact [facility] Diagnoses Incomplete bladder emptying Urinary urgency Urinary frequency Nocturia Procedures URODYNAMICS WHI COMPLX CYSTOMETRO W/VOID PRESS&URETHRAL PROFILE Nelsy Chávez, DANN.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 [address] [place] [address] [facility] [address] [place] [address] Referral ID Status Reason Start Date Expiration Date Visits Requested Visits Authorized [id number] Pending Review Auto-Generat ed Referral 07/31/2023 07/30/2024 1 1 [facility]ative[facility] Consultation (Routine) - Open Specialty Diagnoses / Procedures Referred By Gustavo salazar Referred To Contact [facility] Diagnoses Upper abdominal pain Lev Ritter APRN 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 [address] [place] [address] [facility] [address] [place] [address] Referral ID Status Reason Start Date Expiration Date Visits Re quested Visits Authorized [id number] Open 08/12/2023 09/12/2024 1 1 [facility] NarrativeDISCUSS OTHER OPTIONS PRIOR TO [facility] [employer] Other Reuudt for visit NarrativeRECHECK CERVICAL PAIN DISCUSS PROCEDURENort [employer] Other Reason for visit Narrative* Outpatient Procedure (Routine) - Closed Specialty Diagnoses / Procedures Referred By Gustavo salazar Referred To Contact [facility] Diagnoses Gastroparesis Procedures GI TRANSIT & PRES RAVINDER WIRELESS CAPSULE W/Isra Kelly DO [facility] [address] [place] [address] [facility] [place] [facility] [place] [address] Referral ID Status Reason Start Date Expiration Date Visits Re quested Visits Authorized [id number] Closed 11/08/2022 11/05/2023 1 1 [facility] Summary Purpose Family History No Family [...] FoundDocuments on File Type Date Recorded 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 Advance Directive(s) 10/13/2021 4:09 PM Advance Directive(s) 10/14/2020 8:14 AM Documents on File Type Date Recorded 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 Advance Directive(s) 10/13/2021 4:09 PM Advance Directive(s) 10/14/2020 8:14 AM Documents on File Type Date Recorded 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 Advance Directive(s) 03/21/2022 1:42 PM [...] unspecified whether esophagitis present [facility] [address] [place] [address] Referral ID Status Reason Start Date Expiration Date Visits Re quested Visits Authorized [id number] Closed 1 1 Referral ID Status Reason Start Date Expiration Date V isits Requested Visits Authorized [id number] Pending Review 1 1 Specialty Diagnoses / Procedures Referred By Gustavo salazar Referred To Contact CT IMAGING Diagnoses Periumbilical abdominal pain Procedures CT ABD/PEL W IVCON CT ABD & PELVIS [place] [address] [place] [address] Ct Imaging Referral ID Status Reason Start Date Expiration Date Visits Requested Visits Authorized [id number] Pending Review Auto-Generat ed Referral 08/02/2022 08/25/2023 1 1 Reason BILATERAL SHOULDER P AIN Diagnosis 1 Shoulder pain (M25.5 19) Referral Organization [facility] pedics Referring Provider First Name Annette Referring Provider Last Name Steven Referring Provider Specialty Pain Medici ne Referred Organization [facility] Referred Provider Annette Cartagena Referred Address [address] [place], [place],[address] Referred Provider Specialty Orthopedic S urgery Referral Priority Routine Referral Appointment Date 2022-10-10 General Notes Kim Manley 10:01:46 AM >patient already scheduled with [facility] 10/10/22 at 1:30pm. Sending p2p at this time Referral ID Status Reason Start Date Expiration Date Visits Re quested Visits Authorized [id number] Closed 1 1 Chief Complaint and Reason for Visit Chief Complaint M25.519 M25.569 R52 Chief Complaint M25.519 M25.569 R52 bilateral shoulder pain Chief Complaint M76.821/right foor p ain Chief Complaint M76.821/right foor p ain chest tightness dizzy sob Chief Complaint r11.0 r10.11 Chief Complaint * Patient is a 53-year-old female who returns at the request of her primary care physician with episodic chest discomfort associated weakness, dizziness, diaphoresis with recent work-up that [facility] emergency room. Reportedly her troponins [...] of which are currently being investigated at [facility] (now her fourth GI specialist). * Last year while in [place] she had similar issues with elevated troponins in the ED and underwent heart catheterization that did not reveal any specific significant disease, details of the discharge summary are reviewed * She underwent recent stress perfusion imaging at [facility] at [facility], the report is reviewed, she hasno evidence [...] disease, will investigate the troponin rise at [facility] at the [facility] however I believe this is likely a non- [place] troponin elevation, likely associated withunderlying inflammatory bowel disease. We will follow-up on a as needed basis unless further objective data come to light * Patient is a 53-year-old female who returns at the request of her primary care physician with episodic chest discomfort associated weakness, dizziness, diaphoresis with recent work-up that [facility] emergency room. Reportedly her troponins [...] of which are currently being investigated at [facility] (now her fourth GI specialist). * Last year while in [place] she had similar issues with elevated troponins in the ED and underwent heart catheterization that did not reveal any specific significant disease, details of the discharge summary are reviewed * She underwent recent stress perfusion imaging at [facility] beds at the [facility], the report is reviewed, she hasno evidence [...] disease, will investigate the troponin rise at [facility] beds at the [facility] however I believe this is likely a non- [place] troponin elevation, likely associated withunderlying inflammatory bowel disease. We will follow-up on a as needed basis unless further objective data come to light Additional Source Comments INFORMATION SOURCE (unrecogn ized section and content) DATE CREATED AUTHOR 07/08/2021 [facility] DATE CREATED AUTHOR AUTHOR'S ORGANIZ ATION 11/18/2021 [facility] DATE CREATED AUTHOR AUTHOR'S ORGANIZ ATION 02/01/2022 [facility] DATE CREATED AUTHOR AUTHOR'S ORGANIZ ATION 04/05/2022 [facility] DATE CREATED AUTHOR AUTHOR'S ORGANIZ ATION 09/29/2022 [facility] dical Specialist DATE CREATED AUTHOR AUTHOR'S ORGANIZ ATION 12/09/2022 [facility] DATE CREATED AUTHOR AUTHOR'S ORGANIZ ATION 04/16/2023 [facility] DATE CREATED AUTHOR AUTHOR'S ORGANIZ ATION 06/14/2023 [facility] DATE CREATED AUTHOR AUTHOR'S ORGANIZ ATION [facility] DATE CREATED AUTHOR AUTHOR'S ORGANIZ ATION 09/02/2023 [facility] DATE CREATED AUTHOR AUTHOR'S ORGANIZ ATION 10/27/2023 [facility] DATE CREATED AUTHOR AUTHOR'S ORGANIZ ATION 11/24/2023 [facility] DATE CREATED AUTHOR AUTHOR'S ORGANIZ ATION 11/28/2023 [facility] DATE CREATED AUTHOR AUTHOR'S ORGANIZ ATION 12/02/2023 [facility] EPIC DATE CREATED AUTHOR AUTHOR'S ORGANIZ ATION 12/06/2023 [facility] Source Comments (unrecognize d section and content) In the event this informatio n is protected by the Federal Confidentiality of Alcohol and Drug Abuse Patient Records regulations: The Federal rules restrict any use of the information to criminally investigate or prosecute any alcohol or drug abuse patient.[facility] HospitalIn the event this information is protected by the Federal Confidentiality of Alcohol and Drug Abuse Patient Records regulations: The Federal rules restrict any use of the information to criminally investigate or prosecute any alcohol or drug abuse patient.[facility] HospitalIn the event this information is protected by the Federal Confidentiality of Alcohol and Drug Abuse Patient Records regulations: The Federal rules restrict any use of the information to criminally investigate or prosecute any alcohol or drug abuse patient.[facility] HospitalIn the event this information is protected by the Federal Confidentiality of Alcohol and Drug Abuse Patient Records regulations: The Federal rules restrict any use of the information to criminally investigate or prosecute any alcohol or drug abuse patient.[facility] HospitalIn the event this information is protected by the Federal Confidentiality of Alcohol and Drug Abuse Patient Records regulations: The Federal rules restrict any use of the information to criminally investigate or prosecute any alcohol or drug abuse patient.[facility] HospitalIn the event this information is protected by the Federal Confidentiality of Alcohol and Drug Abuse Patient Records regulations: The Federal rules restrict any use of the information to criminally investigate or prosecute any alcohol or drug abuse patient.[facility] HospitalIn the event this information is protected by the Federal Confidentiality of Alcohol and Drug Abuse Patient Records regulations: The Federal rules restrict any use of the information to criminally investigate or prosecute any alcohol or drug abuse patient.[facility] HospitalIn the event this information is protected by the Federal Confidentiality of Alcohol and Drug Abuse Patient Records regulations: The Federal rules restrict any use of the information to criminally investigate or prosecute any alcohol or drug abuse patient.[facility] HospitalIn the event this information is protected by the Federal Confidentiality of Alcohol and Drug Abuse Patient Records regulations: The Federal rules restrict any use of the information to criminally investigate or prosecute any alcohol or drug abuse patient.[facility] HospitalIn the event this information is protected by the Federal Confidentiality of Alcohol and Drug Abuse Patient Records regulations: The Federal rules restrict any use of the information to criminally investigate or prosecute any alcohol or drug abuse patient.[facility] HospitalIn the event this information is protected by the Federal Confidentiality of Alcohol and Drug Abuse Patient Records regulations: The Federal rules restrict any use of the information to criminally investigate or prosecute any alcohol or drug abuse patient.[facility] HospitalIn the event this information is protected by the Federal Confidentiality of Alcohol and Drug Abuse Patient Records regulations: The Federal rules restrict any use of the information to criminally investigate or prosecute any alcohol or drug abuse patient.[facility] HospitalIn the event this information is protected by the Federal Confidentiality of Alcohol and Drug Abuse Patient Records regulations: The Federal rules restrict any use of the information to criminally investigate or prosecute any alcohol or drug abuse patient.[facility] HospitalIn the event this information is protected by the Federal Confidentiality of Alcohol and Drug Abuse Patient Records regulations: The Federal rules restrict any use of the information to criminally investigate or prosecute any alcohol or drug abuse patient.[facility] HospitalIn the event this information is protected by the Federal Confidentiality of Alcohol and Drug Abuse Patient Records regulations: The Federal rules restrict any use of the information to criminally investigate or prosecute any alcohol or drug abuse patient.[facility] HospitalIn the event this information is protected by the Federal Confidentiality of Alcohol and Drug Abuse Patient Records regulations: The Federal rules restrict any use of the information to criminally investigate or prosecute any alcohol or drug abuse patient.[facility] HospitalIn the event this information is protected by the Federal Confidentiality of Alcohol and Drug Abuse Patient Records regulations: The Federal rules restrict any use of the information to criminally investigate or prosecute any alcohol or drug abuse patient.[facility] HospitalIn the event this information is protected by the Federal Confidentiality of Alcohol and Drug Abuse Patient Records regulations: The Federal rules restrict any use of the information to criminally investigate or prosecute any alcohol or drug abuse patient.[facility] HospitalIn the event this information is protected by the Federal Confidentiality of Alcohol and Drug Abuse Patient Records regulations: The Federal rules restrict any use of the information to criminally investigate or prosecute any alcohol or drug abuse patient.[facility] HospitalIn the event this information is protected by the Federal Confidentiality of Alcohol and Drug Abuse Patient Records regulations: The Federal rules restrict any use of the information to criminally investigate or prosecute any alcohol or drug abuse patient.[facility] HospitalIn the event this information is protected by the Federal Confidentiality of Alcohol and Drug Abuse Patient Records regulations: The Federal rules restrict any use of the information to criminally investigate or prosecute any alcohol or drug abuse patient.[facility] HospitalIn the event this information is protected by the Federal Confidentiality of Alcohol and Drug Abuse Patient Records regulations: The Federal rules restrict any use of the information to criminally investigate or prosecute any alcohol or drug abuse patient.[facility] HospitalIn the event this information is protected by the Federal Confidentiality of Alcohol and Drug Abuse Patient Records regulations: The Federal rules restrict any use of the information to criminally investigate or prosecute any alcohol or drug abuse patient.[facility] HospitalIn the event this information is protected by the Federal Confidentiality of Alcohol and Drug Abuse Patient Records regulations: The Federal rules restrict any use of the information to criminally investigate or prosecute any alcohol or drug abuse patient.[facility] HospitalIn the event this information is protected by the Federal Confidentiality of Alcohol and Drug Abuse Patient Records regulations: The Federal rules restrict any use of the information to criminally investigate or prosecute any alcohol or drug abuse patient.[facility] HospitalIn the event this information is protected by the Federal Confidentiality of Alcohol and Drug Abuse Patient Records regulations: The Federal rules restrict any use of the information to criminally investigate or prosecute any alcohol or drug abuse patient.[facility] HospitalIn the event this information is protected by the Federal Confidentiality of Alcohol and Drug Abuse Patient Records regulations: The Federal rules restrict any use of the information to criminally investigate or prosecute any alcohol or drug abuse patient.[facility] HospitalIn the event this information is protected by the Federal Confidentiality of Alcohol and Drug Abuse Patient Records regulations: The Federal rules restrict any use of the information to criminally investigate or prosecute any alcohol or drug abuse patient.[facility] HospitalIn the event this information is protected by the Federal Confidentiality of Alcohol and Drug Abuse Patient Records regulations: The Federal rules restrict any use of the information to criminally investigate or prosecute any alcohol or drug abuse patient.[facility] HospitalIn the event this information is protected by the Federal Confidentiality of Alcohol and Drug Abuse Patient Records regulations: The Federal rules restrict any use of the information to criminally investigate or prosecute any alcohol or drug abuse patient.[facility] HospitalIn the event this information is protected by the Federal Confidentiality of Alcohol and Drug Abuse Patient Records regulations: The Federal rules restrict any use of the information to criminally investigate or prosecute any alcohol or drug abuse patient.[facility] HospitalIn the event this information is protected by the Federal Confidentiality of Alcohol and Drug Abuse Patient Records regulations: The Federal rules restrict any use of the information to criminally investigate or prosecute any alcohol or drug abuse patient.[facility] HospitalIn the event this information is protected by the Federal Confidentiality of Alcohol and Drug Abuse Patient Records regulations: The Federal rules restrict any use of the information to criminally investigate or prosecute any alcohol or drug abuse patient.[facility] HospitalIn the event this information is protected by the Federal Confidentiality of Alcohol and Drug Abuse Patient Records regulations: The Federal rules restrict any use of the information to criminally investigate or prosecute any alcohol or drug abuse patient.[facility] HospitalIn the event this information is protected by the Federal Confidentiality of Alcohol and Drug Abuse Patient Records regulations: The Federal rules restrict any use of the information to criminally investigate or prosecute any alcohol or drug abuse patient.[facility] HospitalIn the event this information is protected by the Federal Confidentiality of Alcohol and Drug Abuse Patient Records regulations: The Federal rules restrict any use of the information to criminally investigate or prosecute any alcohol or drug abuse patient.[facility] HospitalIn the event this information is protected by the Federal Confidentiality of Alcohol and Drug Abuse Patient Records regulations: The Federal rules restrict any use of the information to criminally investigate or prosecute any alcohol or drug abuse patient.[facility] HospitalIn the event this information is protected by the Federal Confidentiality of Alcohol and Drug Abuse Patient Records regulations: The Federal rules restrict any use of the information to criminally investigate or prosecute any alcohol or drug abuse patient.[facility] HospitalIn the event this information is protected by the Federal Confidentiality of Alcohol and Drug Abuse Patient Records regulations: The Federal rules restrict any use of the information to criminally investigate or prosecute any alcohol or drug abuse patient.[facility] HospitalIn the event this information is protected by the Federal Confidentiality of Alcohol and Drug Abuse Patient Records regulations: The Federal rules restrict any use of the information to criminally investigate or prosecute any alcohol or drug abuse patient.[facility] HospitalIn the event this information is protected by the Federal Confidentiality of Alcohol and Drug Abuse Patient Records regulations: The Federal rules restrict any use of the information to criminally investigate or prosecute any alcohol or drug abuse patient.[facility] HospitalIn the event this information is protected by the Federal Confidentiality of Alcohol and Drug Abuse Patient Records regulations: The Federal rules restrict any use of the information to criminally investigate or prosecute any alcohol or drug abuse patient.[facility] HospitalIn the event this information is protected by the Federal Confidentiality of Alcohol and Drug Abuse Patient Records regulations: The Federal rules restrict any use of the information to criminally investigate or prosecute any alcohol or drug abuse patient.[facility] HospitalIn the event this information is protected by the Federal Confidentiality of Alcohol and Drug Abuse Patient Records regulations: The Federal rules restrict any use of the information to criminally investigate or prosecute any alcohol or drug abuse patient.[facility] HospitalIn the event this information is protected by the Federal Confidentiality of Alcohol and Drug Abuse Patient Records regulations: The Federal rules restrict any use of the information to criminally investigate or prosecute any alcohol or drug abuse patient.[facility] HospitalIn the event this information is protected by the Federal Confidentiality of Alcohol and Drug Abuse Patient Records regulations: The Federal rules restrict any use of the information to criminally investigate or prosecute any alcohol or drug abuse patient.[facility] HospitalIn the event this information is protected by the Federal Confidentiality of Alcohol and Drug Abuse Patient Records regulations: The Federal rules restrict any use of the information to criminally investigate or prosecute any alcohol or drug abuse patient.[facility] HospitalIn the event this information is protected by the Federal Confidentiality of Alcohol and Drug Abuse Patient Records regulations: The Federal rules restrict any use of the information to criminally investigate or prosecute any alcohol or drug abuse patient.[facility] HospitalIn the event this information is protected by the Federal Confidentiality of Alcohol and Drug Abuse Patient Records regulations: The Federal rules restrict any use of the information to criminally investigate or prosecute any alcohol or drug abuse patient.[facility] HospitalIn the event this information is protected by the Federal Confidentiality of Alcohol and Drug Abuse Patient Records regulations: The Federal rules restrict any use of the information to criminally investigate or prosecute any alcohol or drug abuse patient.[facility] HospitalIn the event this information is protected by the Federal Confidentiality of Alcohol and Drug Abuse Patient Records regulations: The Federal rules restrict any use of the information to criminally investigate or prosecute any alcohol or drug abuse patient.[facility] HospitalIn the event this information is protected by the Federal Confidentiality of Alcohol and Drug Abuse Patient Records regulations: The Federal rules restrict any use of the information to criminally investigate or prosecute any alcohol or drug abuse patient.[facility] HospitalIn the event this information is protected by the Federal Confidentiality of Alcohol and Drug Abuse Patient Records regulations: The Federal rules restrict any use of the information to criminally investigate or prosecute any alcohol or drug abuse patient.[facility] HospitalIn the event this information is protected by the Federal Confidentiality of Alcohol and Drug Abuse Patient Records regulations: The Federal rules restrict any use of the information to criminally investigate or prosecute any alcohol or drug abuse patient.[facility] HospitalIn the event this information is protected by the Federal Confidentiality of Alcohol and Drug Abuse Patient Records regulations: The Federal rules restrict any use of the information to criminally investigate or prosecute any alcohol or drug abuse patient.[facility] HospitalIn the event this information is protected by the Federal Confidentiality of Alcohol and Drug Abuse Patient Records regulations: The Federal rules restrict any use of the information to criminally investigate or prosecute any alcohol or drug abuse patient.[facility] HospitalIn the event this information is protected by the Federal Confidentiality of Alcohol and Drug Abuse Patient Records regulations: The Federal rules restrict any use of the information to criminally investigate or prosecute any alcohol or drug abuse patient.[facility] HospitalIn the event this information is protected by the Federal Confidentiality of Alcohol and Drug Abuse Patient Records regulations: The Federal rules restrict any use of the information to criminally investigate or prosecute any alcohol or drug abuse patient.[facility] HospitalIn the event this information is protected by the Federal Confidentiality of Alcohol and Drug Abuse Patient Records regulations: The Federal rules restrict any use of the information to criminally investigate or prosecute any alcohol or drug abuse patient.[facility] HospitalIn the event this information is protected by the Federal Confidentiality of Alcohol and Drug Abuse Patient Records regulations: The Federal rules restrict any use of the information to criminally investigate or prosecute any alcohol or drug abuse patient.[facility] HospitalIn the event this information is protected by the Federal Confidentiality of Alcohol and Drug Abuse Patient Records regulations: The Federal rules restrict any use of the information to criminally investigate or prosecute any alcohol or drug abuse patient.[facility] HospitalIn the event this information is protected by the Federal Confidentiality of Alcohol and Drug Abuse Patient Records regulations: The Federal rules restrict any use of the information to criminally investigate or prosecute any alcohol or drug abuse patient.[facility] HospitalIn the event this information is protected by the Federal Confidentiality of Alcohol and Drug Abuse Patient Records regulations: The Federal rules restrict any use of the information to criminally investigate or prosecute any alcohol or drug abuse patient.[facility] HospitalIn the event this information is protected by the Federal Confidentiality of Alcohol and Drug Abuse Patient Records regulations: The Federal rules restrict any use of the information to criminally investigate or prosecute any alcohol or drug abuse patient.[facility] HospitalIn the event this information is protected by the Federal Confidentiality of Alcohol and Drug Abuse Patient Records regulations: The Federal rules restrict any use of the information to criminally investigate or prosecute any alcohol or drug abuse patient.[facility] HospitalIn the event this information is protected by the Federal Confidentiality of Alcohol and Drug Abuse Patient Records regulations: The Federal rules restrict any use of the information to criminally investigate or prosecute any alcohol or drug abuse patient.[facility] HospitalIn the event this information is protected by the Federal Confidentiality of Alcohol and Drug Abuse Patient Records regulations: The Federal rules restrict any use of the information to criminally investigate or prosecute any alcohol or drug abuse patient.[facility] HospitalIn the event this information is protected by the Federal Confidentiality of Alcohol and Drug Abuse Patient Records regulations: The Federal rules restrict any use of the information to criminally investigate or prosecute any alcohol or drug abuse patient.[facility] HospitalIn the event this information is protected by the Federal Confidentiality of Alcohol and Drug Abuse Patient Records regulations: The Federal rules restrict any use of the information to criminally investigate or prosecute any alcohol or drug abuse patient.[facility] HospitalIn the event this information is protected by the Federal Confidentiality of Alcohol and Drug Abuse Patient Records regulations: The Federal rules restrict any use of the information to criminally investigate or prosecute any alcohol or drug abuse patient.[facility] HospitalIn the event this information is protected by the Federal Confidentiality of Alcohol and Drug Abuse Patient Records regulations: The Federal rules restrict any use of the information to criminally investigate or prosecute any alcohol or drug abuse patient.[facility] HospitalIn the event this information is protected by the Federal Confidentiality of Alcohol and Drug Abuse Patient Records regulations: The Federal rules restrict any use of the information to criminally investigate or prosecute any alcohol or drug abuse patient.[facility] HospitalIn the event this information is protected by the Federal Confidentiality of Alcohol and Drug Abuse Patient Records regulations: The Federal rules restrict any use of the information to criminally investigate or prosecute any alcohol or drug abuse patient.[facility] HospitalIn the event this information is protected by the Federal Confidentiality of Alcohol and Drug Abuse Patient Records regulations: The Federal rules restrict any use of the information to criminally investigate or prosecute any alcohol or drug abuse patient.[facility] HospitalIn the event this information is protected by the Federal Confidentiality of Alcohol and Drug Abuse Patient Records regulations: The Federal rules restrict any use of the information to criminally investigate or prosecute any alcohol or drug abuse patient.[facility] HospitalIn the event this information is protected by the Federal Confidentiality of Alcohol and Drug Abuse Patient Records regulations: The Federal rules restrict any use of the information to criminally investigate or prosecute any alcohol or drug abuse patient.[facility] Reason for Visit (unrecogniz ed section and content) Reason Comments Physical Therapy Specialty Diagnoses / Procedures Referred By Gustavo t Referred To Contact [facility] Diagnoses Follow-up examination after colorectal surgery Procedures CONSULT TO PHYSICAL THERAPY PHYSICAL THERAPY EVALUATION HIGH COMPLEX [address] [place] [address] [place] [address] [facility] [place] [address] [place] [address] Referral ID Status Reason Start Date Expiration Date Visits Requested Visits Authorized [id number] Authorized Auto-Generat ed Referral 01/04/2022 11/05/2022 30 30 Reason Comments Refill Request dexlansoprazole Reason Comments Established Patient Follow-Up Reason Comments Post Op Reason Comments Established Patient Reason Comments Appointment for script refill Reason Comments Gastroparesis Reason Comments 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 Reason Comments Medication 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 PA [...] Referred By Gustavo t Referred To Contact XR IMAGING Diagnoses Gastroesophageal reflux disease, unspecified whether esophagitis present Procedures XR ESOPHAGRAM W DOUBLE CONTRAST RADIOLOGIC EXAM ESOPHAGUS DOUBLE CONTRAST STUDY Winston Hannah, [place] [address] Xr Imaging Referral ID Status Reason Start Date Expiration Date V isits Requested Visits Authorized [id number] Closed Auto-Generate d Referral 11/17/2022 12/17/2023 1 [...] ABD & [place] W/[place] [address] [place] [id number] Imaging Referral ID Status Reason Start Date Expiration Date V isits Requested Visits Authorized [id number] Closed Auto-Generate d Referral 07/28/2022 11/05/2022 2 2 Reason Comments Urinary Retention Reason Comments Abdominal Pain Reason Comments Med Change Request Care Teams (unrecognized sec tion and content) Team Status: Active Member Role Status Dates Shannon Gómez DO Primary Care Provider Active Team Status: Inactive Member Role Status Dates Shannon Gómez DO Primary Care Provider Active Niecy Duron PA-C Attending Provider Active Full Charge Bookkeeper Relationship 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 [address] [place] [address] PCP - General Family Practice 10/14/20 Full Charge Bookkeeper Relationship 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 [address] [place] [address] PCP - General Family Practice 10/14/20 Full Charge Bookkeeper Relationship 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 [address] [place] [address] PCP - General Family Practice 10/14/20 Full Charge Bookkeeper Relationship 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 [address] [place] [address] PCP - General Family Practice 10/14/20 Full Charge Bookkeeper Relationship 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 [address] [place] [address] PCP - General Family Practice 10/14/20 Full Charge Bookkeeper Relationship 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 [address] [place] [address] PCP - General Family Practice 10/14/20 Gwendolyn Stroud [address] [place] [address] Family Practice 03/14/22 Full Charge Bookkeeper Relationship 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 [address] [place] [address] PCP - General Family Practice 10/14/20 Gwendolyn Stroud [address] [place] [address] Family Practice 03/14/22 Full Charge Bookkeeper Relationship Specialty Start Date End Date Eliceo Gómez [address] [place] [address] PCP - General Family Practice 10/14/20 Gwendolyn Stroud [address] [place] [address] Family Practice 03/14/22 Full Charge Bookkeeper Relationship Specialty Start Date End Date Eliceo Gómez [address] [place] [address] PCP - General Family Practice 10/14/20 Gwendolyn Stroud [address] [place] [address] Family Practice 03/14/22 Full Charge Bookkeeper Relationship Specialty Start Date End Date Eliceo Gómez JrReno [address] [place] [address] PCP - General Family Practice 10/14/20 Gwendolyn Stroud [address] [place] [address] Family Practice 03/14/22 Full Charge Bookkeeper Relationship Specialty Start Date End Date StephonjeromeEliceo randolph [address] [place] [address] PCP - General Family Practice 10/14/20 Gwendolyn Stroud [address] [place] [address] Family Practice 03/14/22 Full Charge Bookkeeper Relationship Specialty Start Date End Date Eliceo Gómez JrReno [address] [place] [address] PCP - General Family Practice 10/14/20 Gwendolyn Stroud, KWESI Family Practice 03/14/22 Full Charge Bookkeeper Relationship Specialty Start Date End Date StephonjerometomasaEliceo Parish [address] [place] [address] PCP - General Family Practice 10/14/20 Gwendolyn Stroud 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 Family Practice 03/14/22 Full Charge Bookkeeper Relationship Specialty Start Date End Date Dalia Eliceo Lugo JrReno [address] [place] [address] PCP - General Family Practice 10/14/20 Gwendolyn Stroud, 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 Family Practice 03/14/22 Full Charge Bookkeeper Relationship 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 [address] [place] [address] PCP - General Family Practice 10/14/20 Gwendolyn Stroud, 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 Family Practice 03/14/22 Full Charge Bookkeeper Relationship 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 [address] [place] [address] PCP - General Family Medicine 10/14/20 Gwendolyn Stroud, 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 Family Medicine 03/14/22 Full Charge Bookkeeper Relationship 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 [address] [place] [address] PCP - General Family Medicine 10/14/20 Gwendolyn Stroud 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 Family Medicine 03/14/22 Full Charge Bookkeeper Relationship 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 [address] [place] [address] PCP - General Family Medicine 10/14/20 Gwendolyn Stroud, 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 Family Medicine 03/14/22 Full Charge Bookkeeper Relationship 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 [address] [place] [address] PCP - General Family Medicine 10/14/20 Gwendolyn Stroud, 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 Family Medicine 03/14/22 Team Status: Inactive Member Role Status Dates Shannon Gómez DO Primary Care Provider Active Annette Harris MD Attending Provider Active Full Charge Bookkeeper Relationship 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 [address] [place] [address] PCP - General Family Medicine 10/14/20 Gwendolyn Stroud CNP [address] [place] [address] Family Medicine 03/14/22 Full Charge Bookkeeper Relationship 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 [address] [place] [address] PCP - General Family Medicine 10/14/20 Gwendolyn Stroud, 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 [address] [place] [address] Family Medicine 03/14/22 Full Charge Bookkeeper Relationship 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 [address] [place] [address] PCP - General Family Medicine 10/14/20 Gwendolyn Stroud, KWESI [address] [place] [address] Family Medicine 03/14/22 Full Charge Bookkeeper Relationship 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 [address] [place] [address] PCP - General Family Medicine 10/14/20 Gwendolyn Stroud, KWESI [address] [place] [address] Family Medicine 03/14/22 Full Charge Bookkeeper Relationship Specialty Start Date End Date Kaftan, Eliceo Parish Jr. [address] [place] [address] PCP - General Family Medicine 10/14/20 Gwendolyn Stroud CNP [address] [place] [address] Family Medicine 03/14/22 Full Charge Bookkeeper Relationship 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 [address] [place] [address] PCP - General Family Medicine 10/14/20 Gwendolyn Stroud CNP [address] [place] [address] Family Medicine 03/14/22 Full Charge Bookkeeper Relationship 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 [address] [place] [address] PCP - General Family Medicine 10/14/20 Gwendolyn Stroud CNP [address] [place] [address] Family Medicine 03/14/22 Full Charge Bookkeeper Relationship 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 [address] [place] [address] PCP - General Family Medicine 10/14/20 Gwendolyn Stroud CNP [address] [place] [address] Family Medicine 03/14/22 Full Charge Bookkeeper Relationship 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 [address] [place] [address] PCP - General Family Medicine 10/14/20 Gwendolyn Stroud CNP [address] [place] [address] Family Medicine 03/14/22 Full Charge Bookkeeper Relationship 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 [address] [place] [address] PCP - General Family Medicine 10/14/20 Gwendolyn Stroud CNP [address] [place] [address] Family Medicine 03/14/22 Full Charge Bookkeeper Relationship 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 [address] [place] [address] PCP - General Family Medicine 10/14/20 Gwendolyn Stroud CNP [address] [place] [address] Family Medicine 03/14/22 Team Status: Inactive Member Role Status Dates Shannon Gómez DO Primary Care Provider Active Annette Cartagena MD Attending Provider Active Full Charge Bookkeeper Relationship 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 [address] [place] [address] PCP - General Family Medicine 10/14/20 Gwendolyn Stroud CNP [address] [place] [address] Family Medicine 03/14/22 Full Charge Bookkeeper Relationship 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 [address] [place] [address] PCP - General Family Medicine 10/14/20 Gwendolyn Stroud CNP [address] [place] [address] Family Medicine 03/14/22 Full Charge Bookkeeper Relationship 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 [address] [place] [address] PCP - General Family Medicine 10/14/20 Gwendolyn Stroud CNP [address] [place] [address] Family Medicine 03/14/22 Full Charge Bookkeeper Relationship 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 [address] [place] [address] PCP - General Family Medicine 10/14/20 Gwendolyn Stroud CNP [address] [place] [address] Family Medicine 03/14/22 Full Charge Bookkeeper Relationship 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 [address] [place] [address] PCP - General Family Medicine 10/14/20 Gwendolyn Stroud CNP [address] [place] [address] Family Medicine 03/14/22 Full Charge Bookkeeper Relationship 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 [address] [place] [address] PCP - General Family Medicine 10/14/20 Gwendolyn Stroud CNP [address] [place] [address] Family Medicine 03/14/22 Full Charge Bookkeeper Relationship 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 [address] [place] [address] PCP - General Family Medicine 10/14/20 Gwendolyn Stroud CNP [address] [place] [address] Family Medicine 03/14/22 Full Charge Bookkeeper Relationship 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 [address] [place] [address] PCP - General Family Medicine 10/14/20 Gwendolyn Stroud CNP [address] [place] [address] Family Medicine 03/14/22 Team Status: Inactive Member Role Status Henrietta Gómez , DO Primary Care Provider Active Anibal Valle , DO Emergency Provider Active Full Charge Bookkeeper Relationship 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 [address] [place] [address] PCP - General Family Medicine 10/14/20 Gwendolyn Stroud CNP [address] [place] [address] Family Medicine 03/14/22 Full Charge Bookkeeper Relationship 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 [address] [place] [address] PCP - General Family Medicine 10/14/20 Gwendolyn Stroud, KWESI [address] [place] [address] Family Medicine 03/14/22 Full Charge Bookkeeper Relationship 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 [address] [place] [address] PCP - General Family Medicine 10/14/20 Gwendolyn Stroud CNP [address] [place] [address] Family Medicine 03/14/22 Full Charge Bookkeeper Relationship 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, DO [address] [place] [address] PCP - General Family Medicine 10/14/20 Gwendolyn Stroud CNP [address] [place] [address] Family Medicine 03/14/22 Full Charge Bookkeeper Relationship 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, DO [address] [place] [address] PCP - General Family Medicine 10/14/20 Gwendolyn Stroud, KWESI [address] [place] [address] Family Medicine 03/14/22 Full Charge Bookkeeper Relationship 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, DO [address] [facility] [place] [address] PCP - General Family Medicine 12/11/19 Team Status: Inactive Member Role Status Henrietta Gómez DO Primary Care Provider Active Start: November 23, 2023 End: November 23, 2023 Eagle Vazquez DO Attending Provider Active Start : November 23, 2023 End: November 23, 2023 Goals (unrecognized section and content) Goals may [...] BE BASED ON THE PRIMARY CLINICAL RECORDS. [employer] provides no warranty or guarantee of the accuracy or completeness of information in this document.
--- NOTE | 2023-12-11 13:51 | P.CN_ITS ---
Consult Note: HPI Data of Consult Patient: new to practice Consult date: 12/11/23 Requesting Physician: Ace Ahumada MD Primary Care Provider: Isatu CASTRO Consult Narrative Reason for consult: Neck and left arm pain, low back pain Narrative: 53yof who presents for evaluation. Worsening pain that radiates from neck into left upper extremity. History of cervical fusion many years ago, no recent MRI available for review. Frequently undergoes chiropractic therapy, most recently 2 weeks ago, has done for >3 months. Continues in provider directed home exercise course, which she has attempted for >6 weeks with no benefit. Utilizes tylenol with some benefit. Has tried mobic >6 weeks in the past 3 months, without much benefit. Denies adverse med side effects. cc:: CC: Ace Ahumada MD Review of Systems ROS Status of ROS 10 or more systems reviewed and unremark able except as noted in history and below PFSH [facility] Medical History Panic attacks ?F41.0 - Panic disorder [episodic paroxysmal anxiety] (ICD-10) OCD (obsessive compulsive disorder) ?F42.9 - Obsessive-compulsive disorder, unspecified (ICD-10) COVID-19 ?U07.1 - COVID-19 (ICD-10) Migraine ?G43.909 - Migraine, unspecified, not intractable, without status migrainosus (ICD-10) Gastritis ?K29.70 - Gastritis, unspecified, without bleeding (ICD-10) GERD (gastroesophageal reflux disease) ?K21.9 - Gastro-esophageal reflux disease without esophagitis (ICD-10) Peroneal tendinitis ?M76.70 - Peroneal tendinitis, unspecified leg (ICD-10) Posterior tibial tendon dysfunction ?M76.829 - Posterior tibial tendinitis, unspecified leg (ICD-10) Painful orthopaedic hardware ?T84.84XA - Pain due to internal orthopedic prosthetic devices, implants and grafts, initial encounter (ICD-10) Cellulitis ?L03.90 - Cellulitis, unspecified (ICD-10) Post op infection ?T81.40XA - Infection following a procedure, unspecified, initial encounter (ICD-10) Restless leg syndrome ?G25.81 - Restless legs syndrome (ICD-10) Tibialis anterior tendon tear, traumatic ?S86.219A - Strain of muscle(s) and tendon(s) of anterior muscle group at lower leg level, unspecified leg, initial encounter (ICD-10) Osteoarthritis ?M19.90 - Unspecified osteoarthritis, unspecified site (ICD-10) Back pain ?M54.9 - Dorsalgia, unspecified (ICD-10) Sleep disorder ?G47.9 - Sleep disorder, unspecified (ICD-10) PTSD (post-traumatic stress disorder) ?F43.10 - Post-traumatic stress disorder, unspecified (ICD-10) Depression ?F32.A - Depression, unspecified (ICD-10) Anxiety ?F41.9 - Anxiety disorder, unspecified (ICD-10) Sleep apnea ?G47.30 - Sleep apnea, unspecified (ICD-10) Asthma ?J45.909 - Unspecified asthma, uncomplicated (ICD-10) Constipation ?K59.00 - Constipation, unspecified (ICD-10) High cholesterol ?E78.00 - Pure hypercholesterolemia, unspecified (ICD-10) Hypertension ?I10 - Essential (primary) hypertension (ICD-10) Female rectocele with enterocele ?N81.6 - Rectocele (ICD-10) ?K46.9 - Unspecified abdominal hernia without obstruction or gangrene (ICD- 10) 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 - Other specified functional intestinal disorders (ICD-10) Surgical History H/O tooth extraction ?K08.409 - Partial loss of teeth, unspecified cause, unspecified class (ICD- 10) H/O foot surgery (05/12/23) ?Z98.890 - Other specified postprocedural states (ICD-10) History of appendectomy (1987) ?Z90.49 - Acquired absence of other specified parts of digestive tract (ICD- 10) History of colonoscopy ?Z98.890 - Other specified postprocedural states (ICD-10) History of colectomy (03/2022) ?Z90.49 - Acquired absence of other specified parts of digestive tract (ICD- 10) History of tonsillectomy and adenoidectomy ?Z90.89 - Acquired absence of other organs (ICD-10) History of hysterectomy (2014) ?Z90.710 - Acquired absence of both cervix and uterus (ICD-10) History of arthroplasty of right ankle ?Z98.890 - Other specified postprocedural states (ICD-10) History of repair of rotator cuff ?Z98.890 - Other specified postprocedural states (ICD-10) S/P ankle ligament repair (2020) ?Z98.890 - Other specified postprocedural states (ICD-10) Family History Other Family history of Alzheimer's disease Family history of coronary artery disease Family history of heart disease Family history of hypertension Social History Within the past year, how often did you have a drink containing alcohol: never Score interpretation: A score less than 3 is consistent with normal alcohol consumption. Smoking status: Never smoker Non-prescribed substance use: denies use Previous occupational history: unemployed Highest level of school completed/degree received: some college, no degree Little interest or pleasure in doing things: not at all Feeling down, depressed, or hopeless: not at all Feel stressed/tense/nervous/anxious/difficulty sleeping: only a little Due to disability, difficulty making decisions: No Do you think of yourself as: straight/heterosexual Gender Identity: female Meds Home Medications and Allergies Home Medications Medication Instructions Recorded Confirmed Type atenolol 25 mg tablet 25 mg PO Q24H 05/04/23 12/11/23 History dexlansoprazole 60 mg 60 mg PO QAM 05/04/23 12/11/23 History capsule,biphase delayed release fremanezumab-vfrm 225 mg/1.5 mL 125 mg subcut .[id number] 05/04/23 12/11/23 History subcutaneous auto-injector (Ajovy) ropinirole 1 mg tablet 1 mg PO QAM 05/04/23 12/11/23 History ropinirole 2 mg tablet 2 mg PO QPM 05/04/23 12/11/23 History aripiprazole 9.75 mg/1.3 mL 300 mg IM .monthly 10/29/23 12/11/23 History intramuscular solution clonidine 0.1 mg/24 hr weekly 1 patch topical .weekly 10/29/23 11/03/23 History transdermal patch daridorexant 25 mg tablet (Quviviq) 25 mg PO QPM 10/29/23 12/11/23 History fluticasone fur. 100 mcg-umeclid 1 inh inhalation Q24H 11/03/23 12/11/23 History 62.5 mcg-vilant 25 mcg inhalat.powder (Trelegy Ellipta) lamotrigine 25 mg disintegrating 25 mg PO DAILY 11/03/23 12/11/23 History tablet ondansetron 4 mg disintegrating 4 mg PO Q8H PRN nausea and 11/13/23 Rx tablet vomiting 5 days #15 tabs celecoxib 200 mg capsule (Celebrex) 200 mg PO BID 12/11/23 12/11/23 History lisdexamfetamine 30 mg capsule 30 mg PO DAILY 12/11/23 12/11/23 History (Vyvanse) Allergies Allergy/AdvReac Type Severity Reaction Status Date / Time risperidone [From Risperdal] AdvReac Mild breast Verified 11/13/23 07:50 nipples leak Exam Narrative Exam Narrative: Psych-alert and oriented x 3.? Attentive and appropriate, constitutionally normal, displays normal mood and affect per situation.? There are no obvious deficits in memory, reasoning, or intellect.? Skin-no obvious rashes, bruising, or erythema noted to the patient's area of pain.? Extremities-upper extremities are warm with minimal edema and palpable pulses. Cervical- tenderness to palpation noted in the cervical spine and paraspinal musculature.? Pain is elicited with flexion, extension, and lateral rotation of the cervical spine.? Range of motion is diminished due to pain. Facet loading maneuvers are positive. Strength-unremarkable and within normal limits with the exception to the left biceps, triceps. Sensory-no notable sensory deficits in the bilateral upper extremities to touch or pinprick with the exception to decreased sensation to the left C5, 6, 7 dermatomal distribution.? Lumbar-no significant tenderness to palpation noted in the lumbar spine and paraspinal musculature.? Pain is elicited with extension, and lateral rotation of the lumbar spine. Range of motion is slightly diminished with these motions due to pain. Facet loading maneuvers are positive bilaterally and do appear to be concordant with the patient's normal complaints of pain.? Coordination remains intact.? Gait remains non-antalgic. Assessment and Plan Assessment and Plan (1) Cervical stenosis of spinal canal: (2) Cervical post-laminectomy syndrome: (3) Lumbar spondylosis: Plan 53yof who presents for evaluation. Failed conservative measures, as noted. Given failure to respond, coupled with symptoms and lack of recent advanced imaging, would like to update her cervical MRI without contrast. Also will order XR of lumbar spine and sacrum. She is in agreement. Meds reviewed. Will have her trial celebrex 200mg bid prn. Follow up after imaging.
== END 2023-12-11 12:08 | disposition home or self-care (01) ==
LOC: PM 12:07
PROVIDERS: PCP Family Medicine; Visit Provider Anesthesiology
DX: M48.02 Spinal stenosis, cervical region (principal); M96.1 Postlaminectomy syndrome, not elsewhere classified; M47.816 Spondylosis without myelopathy or radiculopathy, lumbar region
CPT/HCPCS: G0463

== ENCOUNTER 2023-12-14 12:44 | Outpatient (OUT) | payer OTHER, SELFPAY ==
--- NOTE | 2023-12-14 12:47 | XR_ITS ---
The [address] [address] Patient Name: ELSIE FUENTES MRN: [id number] date: 1970 Sex: F Assigned Patient Location: [facility] Current Patient Location: [facility] Accession/Order Number: [id number] Exam Date: 12/14/2023 13:00 Report Date: 12/14/2023 13:52 At the request of: KEDAR KASPER Procedure: XR lumbar spine 6V w bending EXAMINATION: XR lumbar spine 6V w bending, XR sacrum coccyx min 2V HISTORY: Lumbar Stenosis With Neurogenic Claudication COMPARISON: No relevant comparison available. FINDINGS: BONES: Normal alignment with no acute fracture or spondylolisthesis. Mild degenerative spondylosis and facet osteoarthropathy DISC SPACES: Normal. No significant disc height narrowing, subluxation, or endplate abnormality. PARASPINOUS: Negative. No paraspinous abnormality is seen. OTHER: Negative. XR/XR lumbar spine 6V w bending IMPRESSION: Mild degenerative changes with no acute abnormality of the lumbar or sacral spine Electronically authenticated by: NICKI DACOSTA Date: 12/14/2023 13:52
--- NOTE | 2023-12-14 12:47 | XR_ITS ---
The [address] [address] Patient Name: ELSIE FUENTES MRN: [id number] date: 1970 Sex: F Assigned Patient Location: [facility] Current Patient Location: [facility] Accession/Order Number: [id number] Exam Date: 12/14/2023 13:00 Report Date: 12/14/2023 13:52 At the request of: KEDAR KASPER Procedure: XR sacrum coccyx min 2V EXAMINATION: XR lumbar spine 6V w bending, XR sacrum coccyx min 2V HISTORY: Lumbar Stenosis With Neurogenic Claudication COMPARISON: No relevant comparison available. FINDINGS: BONES: Normal alignment with no acute fracture or spondylolisthesis. Mild degenerative spondylosis and facet osteoarthropathy DISC SPACES: Normal. No significant disc height narrowing, subluxation, or endplate abnormality. PARASPINOUS: Negative. No paraspinous abnormality is seen. OTHER: Negative. XR/XR sacrum coccyx min 2V IMPRESSION: Mild degenerative changes with no acute abnormality of the lumbar or sacral spine Electronically authenticated by: NICKI DACOSTA Date: 12/14/2023 13:52
== END 2023-12-14 12:45 | disposition home or self-care (01) ==
PROVIDERS: PCP Family Medicine; Visit Provider Anesthesiology
DX: M48.062 Spinal stenosis, lumbar region with neurogenic claudication (principal)
CPT/HCPCS: 72114; 72220

== ENCOUNTER 2023-12-19 06:50 | Outpatient (OUT) | payer OTHER, SELFPAY ==
--- OUTSIDE RECORDS SUMMARY | 2023-12-19 06:54 | XMS_ITS | CCD ---
Author Name Unknown Address [address] [place] [address] Organization [facility] Care Team Providers Care Sodder Name Role Phone PARISH GÓMEZ Primary Care Unavailable Eliceo Gómez Jr. Primary Care Provider Gwendolyn Stroud Unavailable Maximus OROSCO, Gwendolyn Unavailable [phone] Annette Harris Unavailable Tita Daugherty Unavailable Erica Kingston Unavailable Eliceo Gómez Unavailable Unavailable Unavailable Allison Arita Unavailable Eliceo Gómez Jr. Primary Care Provider Maximus OROSCO, Gwendolyn Unavailable Eliceo Gómez Unavailable DO Shannon Gómez Primary Care Provider [phone] MD Annette Harris Attending Provider [phone] Eliceo Gómez Jr. Primary Care Provider Maximus OROSCO, Gwendolyn Unavailable Annette Cartagena Unavailable MD Annette Cartagena Attending Provider [phone] WINSTON HANNAH Attending Unavailable WINSTON HANNAH Referring Unavailable ELICEO GÓMEZ JR Primary Care Unavail able ISRA MASTERS Attending Unavailable ISRA MASTERS Referring Unavailable ELICEO GÓMEZ JR Primary Care Unavail able DO Shannon Gómez Primary Care Provider LORRAINE Duron Attending Provider [phone] JEM ., DR BAEZA Consulting Unavailable KAFTAN, DR Isatu LUGO Primary Care Unavailable HAY ., DR BAEZA Admitting Unavailable HAY ., DR BAEZA Attending Unavailable SALMA AMEZQUITA Consulting Unavailable HIGHLANDER, SADE Keys Consulting Unavailable HIGHLANDER, SADE Keys Attending Unavailable HIGHLANDER, SADE Keys Admitting Unavailable KAFTAN, DR Isatu LUGO Primary Care Unavailable HOLLINGSWORTHSHERLYN Consulting Unavailable HIGHLANDER, SADE Keys Attending Unavailable HIGHLANDER, SADE Keys Admitting Unavailable WEST, DR NICKI Gale Consulting Unavailable KAFTAN, DR Isatu LUGO Primary Care Unavailable HIGHLANDER, SADE Keys Consulting Unavailable KAFTAN, DR Isatu LUGO Primary Care Unavailable TANI ., CHASITY Consulting Unavailable TANI ., CHAISTY Attending Unavailable TANI ., CHASITY Admitting Unavailable HENANCY SHELBY Consulting Unavailable KAFTAN, DR Isatu LUGO Primary [...] Consulting Unavailable HIGHLANDER, SADE Keys Consulting Unavailable KAREEM, NIECY Attending Unavailable KAREEM, NIECY Admitting Unavailable KAFTAN, DR Isatu LUGO Primary Care Unavailable ZIEBER, DR ZAIDA Braden Consulting Unavailable AKREEM, NIECY Consulting Unavailable KAREEM, NIECY Admitting Unavailable KAREEM, NIECY Attending Unavailable KAFTAN, DR Isatu LUGO Primary Care Unavailable ZIEBER, DR ZAIDA Braden Consulting Unavailable KAREEM, NEICY Consulting Unavailable KAREEM, NIECY Admitting Unavailable KAREEM, NIECY Attending Unavailable WEST, DR NICKI Gale Consulting Unavailable KAFTAN, DR Isatu LUGO Primary Care Unavailable KAREEM, NIECY Consulting Unavailable JENNIFER GARCIA Attending Unavailable HAY ., DR BAEZA Consulting Unavailable JOSE, JENNIFER Admitting Unavailable KAFTAN, DR Isatu LUGO Primary Care Unavailable JOSE, JENNIFER Consulting Unavailable HIGHLANDER, SADE Keys Consulting Unavailable TANI ., CHASITY Attending Unavailable KAFTAN, DR Isatu LUGO Primary Care Unavailable TANI ., CHASITY Admitting Unavailable NICKI BUTT Unavailable TANI ., CHASIYT Consulting Unavailable LORRI TRIPLETT Consulting Unavailable DALIA, DR Isatu LUGO Primary Care Unavailable ELIAS ., DR ELDER Rios Admitting Unavailable ELIAS ., DR ELDER Rios Attending Unavailable ELIAS ., DR ELDER Rios Consulting Unavailable WEST, DR NICKI Gale Consulting Unavailable SADE WILDE Consulting Unavailable EDUARDO ., NANCY LAMA Consulting Unavailable GEMBUSDAWNA Consulting Unavailable HIGHLANDER, SADE Keys Consulting Unavailable INOCENTEANDER, SADE Keys Attending Unavailable CHANI, SADE Keys Admitting Unavailable KALEIGHA, DR Isatu LUGO Primary Care Unavailable KALEIGHA, DR Isatu LUGO Primary Care Unavailable PAY ., DR MCDONALD Attending Unavailable PAY ., DR MCDONALD Admitting Unavailable PAY ., DR MCDONALD Consulting Unavailable NIECY DURON Attending Unavailable NIECY DURON Admitting Unavailable DALIA, DR Isatu LUGO Primary Care Unavailable ZIEBER, DR ZAIDA Braden Consulting Unavailable NIECY DURON Consulting Unavailable DO Leonard Anibal Emergency Provider Unavailable Unavailable Unavailable Primary Care Provider UnavailLEV Aaron Referring Unavailable LEV RITTER Attending Unavailable LEX SALMON Attending Unavailable Héctor, Dr. Dipti Fam Attending Unava arben Gómez Jr, Dr. Eliceo Lugo Primary Care Jessica vailarosario Anaya, Dr. Dipti Fam Attending Unava arben Gómez Jr, Dr. Eliceo Lugo Primary Care Jessica vailarosario Anaya, Dr. Dipti Fam Referring Unava arben Gómez Jr, Dr. Eliceo Lugo Primary Care Jessica vailarosario Anaya, Dr. Dipti Fam Attending Unava ilaraceli Gómez Jr., DO, George Robert Primary Care Provi jose eduardo PAULINE CHRISTENSEN Attending Unavailable ELICEO GÓMEZ JR Referring Unavailable ELICEO GÓMEZ JR Primary Care Unavailable Dalia Morales DO, George R Primary Care Provider DO Shannon Gómez Primary Care Provider [phone] DO Eagle Vazquez Attending Provider [phone] PAM WANG Referring Unavailable ELICEO GÓMEZ JR Primary Care Unavail able JAIRON LAI Attending Unavailable PAM WANG Attending Unavailable DALIA JENKINSELICEO Primary Care Unavail able NELSY CHÁVEZ Attending Unavailable STEPHONJEROMEAN , ELICEO LUGO Primary Care Unavail able KAJEROMEAN , ELICEO LUGO [facility] Care Unavail able WINSTON HANNAH Referring Unavailable KAJEROMEAN JR, ELICEO LUGO Primary Care Unavail able WINSTON HANNAH Attending Unavailable KALEIGHA JENKINSELICEO [facility] Care Unavail able WINSTON HANNAH Referring Unavailable KAJEROMEAN JR, ELICEO LUGO [facility] Care Unavail able WINSTON HANNAH Attending Unavailable KAJEROMEAN , ELICEO LUGO Primary Care Unavail able BAN MARY Referring Unavailable BAN MARY Attending Unavailable KAJEROMEAN , ELICEO LUGO Primary Care Unavail able KAJEROMEAN , ELICEO LUGO Referring Unavail able KAJEROMEAN , ELICEO LUGO [facility] Care Unavail able ISRA MASTERS Attending Unavailable PAM WANG Attending Unavailable DALIA JENKINS, ELICEO LUGO [facility] Care Unavail able PAM WANG Referring Unavailable PAM WANG Attending Unavailable DALIA JENKINS, ELICEO LUGO [facility] Care Unavail able DORIS ARIAS Attending Unavailable DALIA JENKINS, ELICEO LUGO [facility] Care Unavail able ELICEO GÓMEZ Attending Unavailable EAGLE VAZQUEZ Attending Unavailable DIPTI ACEVEDO Attending Unavailable EAGLE VAZQUEZ Attending Unavailable ELICEO GÓMEZ Referring Unavailable KAELICEO AHUJA Attending Unavailable ELICEO GÓMEZ Attending Unavailable ELICEO GÓMEZ Referring Unavailable EAGLE VAZQUEZ Attending Unavailable ELICEO GÓMEZ Referring Unavailable RON KING Attending Unavailable ELICEO GÓMEZ Referring Unavailable EAGLE VAZQUEZ Referring Unavailable RON KING Referring Unavailable CARMEN DORSEY Attending Unavailable CARMEN DORSEY Attending Unavailable CARMEN DORSEY Attending Unavailable GIANA MORALES Attending Unavailable GIANA MORALES Attending Unavailable GIANA MORALES Attending Unavailable KAILA, CARMEN Attending Unavailable GIANA MORALES Attending Unavailable KAILA, CARMEN Attending Unavailable ANNETTE SWANSON Attending Unavailable KAILA, CARMEN Attending Unavailable RADHA CASTREJON Attending Unavailable KAILA, CARMEN Attending Unavailable KAILA, CARMEN Attending Unavailable KAILA, CARMEN Attending Unavailable KAILA, CARMEN Attending Unavailable ANNETTE SWANSON Attending Unavailable KAILA, CARMEN Attending Unavailable MATTEO QUINONES Attending Unavailable SIOMARA MONTAGUE Referring Unavailable LAYSIOMARA Attending Unavailable ENIX DEB Referring Unavailable GIANA MORALES Attending Unavailable RADHA CASTREJON Attending Unavailable Eagle Vazquez Admitting Unavailable Eagle Vazquez Attending Unavailable Shannon Gómez Primary Care Unavailable Niecy Duron Admitting Unavailable Niecy Duron Attending Unavailable Shannon Gómez Primary Care Unavailable Anibal Valle Attending Unavailable Shannon Gómez Primary Care Unavailable Anibal Valle Admitting Unavailable Brandyn BENSON, Ace Art Attending Unavailable Allergies Allergy Classification Reported Allergen(s) Allergy Type Date of Onset Reaction(s) Facility (20 sources) risperiDONE; Translations: [RisperDAL TABS] Drug Allergy 0 Intolerance, Other (See Comments) [facility] (1 source) oxyCODONE Drug Allergy [facility] Repository (1 source) risperiDONE Drug Allergy [facility] Repository (3 sources) POISON LAITH EXTRACT; Translations: [POISON LAITH EXTRACT] Drug Allergy 3 Rash [facility] (1 source) POISON LAITH; Translations: [POISON LAITH] Propensity to adverse reactions to drug (disorder) 2 [facility] Repository (1 source) risperiDONE Drug Allergy 3 [facility] Repository Medications Current Medications Medication Drug [...] 1 tablet by mouth every twelve hours [id number] 200 actuat albuterol 0.09 mg/actuat metered dose [...] Comment on above: [facility]GS every 4 hours if needed alendronic acid 70 mg oral tablet (2 sources) Bisphosphonate Start: take 1 tablet by mouth every week Alendronate (Fosamax) 70 mg Tablet Active 70 MG PO every week June 04, 2023 11:00pm atorvastatin 20 mg oral tablet (20 sources) HMG-CoA Reductase Inhibitor Start: 022 take 1 tablet by mouth once daily [...] by mouth once daily. 168 hr cloNIDine 0.41299 mg/hr transdermal system (1 source) Central alpha-2 [...] Start: 06-05-2023 take 1 capsule by mo [facility] once daily Dexlansoprazole (Dexilant) 60 mg Capsule,Biphase [...] 1 puff(s) by inhalation in the morning tboqznbkqnj-sotessluy-lysywctp (TRELEGY ELLIPTA) 100-62.5-25 mcg blister with device Indications: Asthma, unspecified asthma severity, unspecified whether complicated, unspecified whether persistent Inhale 1 puff in the morning. 60 each 5 05/31/2022 Active take 1 puff(s) by inhalation once daily nryonnsuayw-zudcyzvwl-koznjsbm (TRELEGY ELLIPTA) 100-62.5-25 mcg Inhale 1 Puff [...] inulin 200 mg / lactobacillus rhamnosus gg [id number] unt oral capsule (1 source) Start: End: take 1 capsule by mouth once daily lactobacillus rhamnosus (CULTURELLE) 10 billion cell -200 mg capsule Take 1 capsule by mouth once daily. 30 capsule 0 06/07/2022 07/07/2022 Active Comment on above: Take 1 [facility]. iv contrast (will be [...] 19, 2018 12:17pm take 2 tablets by mo ut at bedtime traZODone HCl - 100 MG Oral Tablet TAKE 2 TABLETS AT BEDTIME. Quantity: 0 Refills: 0 Ordered: 13-Jun-2023 DO Active [facility] traZODone HCl - 150 [...] on above: Take 2 tablets by mo uth every 6 hours as needed for pain. [...] oral tablet (5 sources) Benzodiazepine Start: 09-13-20 End: 10-01-20 18 [...] (5 sources) Nonsteroidal Anti-inflammatory Drug Start: 06-18-20 End: 02-18-20 take 1 tablet by mouth once daily Celecoxib Discontinued 1 TAB PO Daily June 17, 2019 11:00pm February 18, 2020 9:25am cephalexin 500 mg oral capsule (5 sources) Cephalosporin Antibacterial Start: 09-20-20 17 End: 10-01-20 18 take 1 capsule by mouth every eight hours Cephalexin (Keflex) 500 mg capsule Discontinued 500 MG PO Q8H 21 7 September 20, 2017 12:00am October 01, 2018 9:40am [...] breakfast docusate sodium 50 mg / sennosides, correction 8.6 mg oral tablet (5 sources) Start: [...] Fluticasone Propionate (Flonase Allergy Relief) 50 mcg/actuation Kinsley,Suspension Discontinued 2 SPRAY INTRANASAL Daily October 15, 2018 12:00am June 18, 2019 2:04pm Comment on above: Use 1 Kinsley in each nostril once daily. Fluticasone Propion-Salmeterol [...] as needed for pain. lactobacillus rhamnosus gg [id number] unt oral capsule (20 sources) Start: 06-09-2022 [...] Discontinued Start: 12-27-2021 [facility] 1 [facility] lactobacillus rhamnosus (CULTURELLE) 10 billion cell capsule Take 1 capsule by mouth once daily. 30 capsule 0 12/27/2021 Active Comment on above: Take 1 capsule by mo [facility] once daily. lamoTRIgine 200 mg oral tablet [...] 19, 2018 12:14pm take 2 tablets by mo [facility] in the morning lamoTRIgine (LaMICtal) 25 mg [...] on above: Take 2 tablets by mo [facility] as directed. Take 2 tablet at 6pm, [...] above: Take 1 capsule by mo ut twice daily. nystatin 189830 unt/ml topical cream (20 sources) Polyene Antifungal [...] capsule (18 sources) Proton Pump Inhibitor Start: End: take [...] June 05, 2023 9:13am polyethylene glycol 3350 55428 mg powder for oral solution (3 sources) [...] Comment on above: [facility] psyllium 520 mg oral capsule (3 sources) Start: 12-27-2021 End: 02-08-2022 psyllium Husk (METAMUCIL) 0.52 gram capsule Take 1 capsule by mouth as directed. As needed for constipation 0 12/27/2021 02/08/2022 Discontinued (Course of therapy completed) Comment on above: Take 1 capsule by mo [facility] as directed. As needed for constipation QUEtiapine [...] on above: Take 2 tablets by mo [facility] three times daily as needed. 50 ml [...] suspension (20 sources) Corticosteroid Start: 09-14-2022 Kenalog-40 05 Oct, 2022 40 mg Start: 08-19-2021 KENALOG - 10 m g Aug, 10 mg vitamin b12 1 mg oral tablet (20 sources) Vitamin B12 take 1 tablet by mouth once daily cyanocobalamin (VITAMIN B-12) 1,000 mcg tab Take 1,000 mcg by mouth once daily. 0 Active Comment on above: Take 1,000 mcg [facility]. vortioxetine 10 mg oral [...] abdominal pain; Translations: [Generalized abdominal pain] Onset: 2 Episodic Acute and chronic tonsillitis (2 sources) Chronic [...] Translations: [Candidiasis of skin and nail] Episodic Nausea and vomiting (20 sources) Nausea and vomiting; Translations: [Nausea with vomiting, unspecified] Onset: 2 Resolved: 2 Episodic Osteoarthritis (20 sources) Arthritis of right acromioclavicular joint; Translations: [Primary osteoarthritis, right shoulder] Onset: 0 09-29-2020 Chronic Other acquired deformities (5 sources) Contracture, right ankle; Translations: [CONTRACTURE RIGHT ANKLE] Onset: 2 Chronic Other aftercare (1 source) Other snf (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; Translations: [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] Onset: 3 Episodic Other [...] W/AND (SUSP) EXPOS COVID-19] Onset: 2 Unclassified (2 sources) Telehealth Audio/video Visit; Translations: [Telehealth Audio/video Visit] Onset: 3 Unclassified (1 source) Posterior tibial tendinitis, right leg; Translations: [Posterior tibial tendinitis, right leg] Onset: 3 Urinary tract infections (1 source) [...] Classification Problem Date Documented Da te Episodic/Chronic Acquired foot deformities (6 sources) Valgus deformity, [...] (1 source) Mood disorders Onset: 10-23-2023 10-23-2023 Nonspecific chest pain (10 sources) Chest pain; [...] Test Name Value Interpretation Reference Range Facility 36on 12-05-2023 36 Scheduled Inspire activation appointment 02/06 at 9:15 am. [facility] Hussain 11-27-2023 MARIAN Telephone (WCTRMN) ----- MARY LEAL ([id number]) 1970 F Date Time Provider Department 11/27/23 PAM WANG WCTRMN During your visit today, we recorded the following information about you: Amber Trimble 11/27/2023 9:32 AM Signed Patient: Mary Leal : 1970 Provider: Pam Wang MD Caller Phone #: [phone] (home) [phone] (cell) Reason for call: boyfriend pulled out bladder stimulator. Has log of 6 days of usage. Would like a call. Message routed to nurse triage Date of next visit: MEREDITH: 08/04/2021 Lex Vieyra RN 11/27/2023 10:18 AM Signed [facility] 11/21/2023: Procedure to be performed: Peripheral Nerve Evaluation (PNE) Indication: Urinary frequency, urinary urgency, overactive bladder The patient tolerated the procedure well. We will see how she does over the next week and plan for interstim stages 1/2 in the OR. MD Mary Delcid reports the PNE stimulator stopped connecting so Kim of [employer] said to remove it. She removed the [...] urge [N39.41] Order(s):SURGICAL REQUEST - ELECTIVE (06/2020) [[id number]] Order #: [id number]: 1 Prescriptions as of 11/27/2023 - ARIPiprazole [...] the AM and 2 mg PM - jopztunkwjt-vxqezqapb-dsw anter (TRELEGY ELLIPTA) 100-62.5-25 mcg Inhale 1 [...] Encounter Status:Closed by PAM WANG on 11/27/23 [facility] Hussain 11-25-2023 CNPN Telephone (GYNMN) ----- MARY LEAL ([id number]) 1970 F Date Time Provider Department 11/25/23 RADHA DUNHAM During your visit today, we recorded the following information about you: Radha Dunham MD 11/25/2023 2:43 PM Signed Database Analyst Resident Telephone Encounter 11/25/2023 2:40 PM Call [...] adequately. Discussed with Dr. Mullins, Urogyn fellow public relations supervisor. Radha Dunham MD Obstetrics and Gynecology, PGY1 Allergies As of Date: 11/25/2023 Noted Allergy Reaction RISPERIDONE 07/27/2021 5 - Intolerance Comments: Breast discharge POISON LAITH EXTRACT 04/06/2023 2 - Rash Date Reviewed: 10/10/2023 Reviewed by: José Luis Thorpe, RN - Fully Assessed Reason for Visit: Patient Question [4705] Prescriptions as of 11/25/2023 - ARIPiprazole monohydrate [...] the AM and 2 mg PM - pqowyplprzb-vkdnqyrdk-nrp anter (TRELEGY ELLIPTA) 100-62.5-25 mcg Inhale 1 [...] Status:Closed by RADHA DUNHAM on 11/25/23 Normal [facility] hepatobiliary w pharmon 0 11-23-2023 [place] hepatobiliary w pharm [facility] [place] [place] [address] Nuclear Medicine Report Signed Patient: Mary Leal MR#: [id number] : 1970 Acct:[id number] Age/Sex: 53 / F ADM Date: 11/23/23 Loc: [place] Room: Type: [facility] Attending Dr: Eagle Vazquez DO Copies to: Quinton Melendez Jr, DO Paul C Laffay, DO Ordering Provider: Eagle Vazquez DO Date of Service: 11/23/23 MT/MT hepatobiliary w pharm: RUQ pain, Nausea HIDA [...] is 68%. Normal is greater than 40%. MT/MT hepatobiliary w pharm IMPRESSION: Normal HIDA scan. Impression dictated by: Quinton Melendez Jr., D.O.11/23/2023 11:56 AM Dictation Location: [facility] Transcribed By: MARIO 11/23/23 1156 Dictated By: Quinton Melendez Jr, DO 11/23/23 1155 Signed By: 11/23/23 1156 [facility] CNOVon 11-21-2023 CNOV Office Visit (GUMAIN ) ----- MARY LEAL ([id number]) 1970 F Date Time Provider Department 11/21/23 [...] Voiding dysfunction [N39.8] Order(s):UA DIP, URINE (POC) [[id number]] Order #: [id number]. #:[id number] [] ondansetron orally disintegrating 4 mg [...] (GAS RE (more content not included)... [facility] BI MAMMOGRAM SCREENING TOMOS YNTHESIS BILATERALon 10-31-2023 [...] IS VERY IMPORTANT TO YOUR HEALTH. THE [employer] GUIDELINES RECOMMEND THAT WOMEN 40 [...] by ultrasound. ELECTRONICALLY SIGNED BY: Parish Denny, Normal Not Available Documentationon 10-12-2023 Documentation [id number] Darrian Leal 1970 F Date Provider Department [facility] PS[facility] Gerardo Heal No family history on file Normal [facility] CNOVon 10-10-2023 CNOV Office Visit (SHERON ) ----- MARY LEAL ([id number]) 1970 F Date Time Provider Department 10/10/23 [...] PFSH obtained by others. Pam Wang MD Lubricating Machine Tender offered: Patient declines. OBJECTIVE: BP 102/60 General: [...] would like to move forward with PNE. Peeractivetronic packet given to patient today to review. [...] which included preparing to see the patient, cyfu-np-mlew patient care, completing clinical (more content not included)... [facility] XR CHEST 2 VIEWSon 3 XR CHEST 2 VIEWS FINDINGS: Comparison, June 09, 2021. Intervertebral disc space device again identified lower cervical spine. Cardiopericardial silhouette normal. Pulmonary vasculature normal. Lungs clear. IMPRESSION: Impression: No acute cardiopulmonary disease. ELECTRONICALLY SIGNED BY: Rigo Strauss MD Normal Not Available Orders Onlyon 09-19-2023 Orders Only [id number] Darrian Leal 1970 F Date Provider Department Center 09/19/2023 Karli-GIANA MORALES [facility] PSYCH Gerardo Heal No family history on file Normal [facility] CNPNon 09-12-2023 CNPN Telephone (WHQ) ----- MARY LEAL ([id number]) 1970 F Date Time Provider Department 09/12/23 PAM WANG [facility] During your visit today, we recorded the following information about you: Guido Ocampo 09/12/2023 9:02 AM Signed Patient called in wanting to go over yesterday's procedure appointment with Dr. Stephen. Patient of Dr. Wang. Lex Vieyra, MAKI 09/12/2023 11:53 AM Signed Visit 09/11/23 with [...] which included preparing to see the patient, udop-en-upjx patient care, completing clinical documentation, obtaining and/or reviewing separately obtained history, counseling and educating the patient/family/caregiver, ordering medications, tests, or procedures, and communicating with other HCPs (not separately reported). MD Darrian Delciden states she had her procedure yesterday and [...] Office will call to schedule cystoscopy. Urogynecology [facility] Main provided: Pam Wang Staff Physician, Department [...] Diagnosis:History of suburethral sling procedure [Z98.890] Order(s):CYSTOSCOPY [facility] [[id number]] Order #: [id number] Prescriptions as of 09/12/2023 - atenolol (TENORMIN) [...] Take 1,000 (more content not included)... [facility] CNOVon 09-11-2023 CNOV Office Visit (UROSMN ) ----- MARY LEAL ([id number]) 1970 F Date Time Provider Department 09/11/23 [...] Jenifer Barry RN 09/11/2023 11:37 AM Signed [facility] URODYNAMICS LAB [...] allergy: No Females- Is patient : No Lubricating Machine Tender offered:Patient declines B/O UA: YES DIP: UROFLOWMETRY [...] Jairon Lai MD 09/11/2023 1:18 PM Signed [facility] C[facility] FOR [...] Jairon Lai MD Referring Provider: PAM WANG [[id number]] Allergies As of Date: 09/11/2023 Noted Allergy [...] milliliters subcut (more content not included)... [facility] Orders Onlyon 09-01-2023 Orders Only [id number] Darrian Leal en 1970 F Date Provider Department [place] 09/01/2023 GIANA JAMES [facility] PSYCH Gerardo Heal No family history on file Normal [facility] Telemedici neon 08-23-2023 Behavioral Health Telemedicine [id number] ElvisDarrianMary 1970 Date Provider Department [place] 08/23/2023 JACOB GIANA [facility] PSYCH Gerardo Heal No family history on file Level of Service:95778 [place] OFFICE/OUTPATIENT ESTABLISHED MOD MDM 30-39 MIN Normal [facility] Orders Onlyon 08-21-2023 Orders Only [id number] ElvisDarrian arriaza en 1970 Provider Department [place] 08/21/2023 GIANA JAMES [facility] PSYCH Gerardo Heal No family history on file Normal [facility] BASIC METABOLIC PANELon 10-0 Anion gap [Moles/Vol] 1 mmol/L Low 8-12 [facility] Comment on above: Performed By: #### 4 [id number], [id number], [id number], [id number] #### [address] [place] [address] [place] Calcium [Mass/Vol] 9.2 mg/dL Normal 8.4-10.4 [facility] Comment on above: Performed By: #### 4 [id number], [id number] #### [address] [place] [address] [place] Chloride [Moles/Vol] 105 mmol/L Normal 96-109 [facility] Comment on above: Performed By: #### 4 [id number], [id number] #### [address] [place] [address] [place] CO2 [Moles/Vol] 32 mmol/L High 22-30 [facility] Comment on above: Performed By: #### 4 [id number], [id number], [id number] #### 32 [address] Creatinine [Mass/Vol] 0.67 mg/dL Normal 0.52-1.04 [facility] Comment on above: Performed By: #### 4 [id number], [id number], [id number], [id number] #### [facility] [address] [place] [address] [place] GLOMERULAR FILTRATION RATE ML/MIN/1.73 SQ M.PREDICTED >90.0 Normal >=60.0 [facility] Comment on above: Result Comment: eGFR [...] Kidney Int Suppl.2013;3:1-150 Performed By: #### 4 [id number], [id number], [id number], [id number] #### [facility] [address] [place] [address] Glucose [Mass/Vol] 104 mg/dL High 65-100 [facility] Comment on above: Performed By: #### 4 [id number], [id number], [id number], [id number] #### [facility] [address] [place] [address] Potassium [Moles/Vol] 4.6 mmol/L Normal 3.6-5.1 [facility] [employer] [facility] Comment on above: Performed By: #### 4 [id number], [id number], [id number], [id number] #### [facility] [address] [place] [address] [facility] Sodium [Moles/Vol] 138 mmol/L Normal 135-147 [facility] Comment on above: Performed By: #### 4 [id number], [id number], [id number], [id number] #### [address] Urea nitrogen [Mass/Vol] 16 mg/dL Normal 8-26 [facility] Comment on above: Performed By: #### 4 [id number], [id number], [id number], [id number] #### [address] [address] Basic metabolic panel aka Ch em 8on 08-12-2023 Anion gap [Moles/Vol] 1 mmol/L Low 8 - 12 mmol/L [facility] Calcium [Mass/Vol] 9.2 mg/dL 8.4 - 10. 4 mg/dL [facility] Calcium hydrogen phosphate dihydrate crystals LM Ql (Urine sed) 16 mg/dL 8 - 26 mg/dL [facility] Chloride [Moles/Vol] 105 mmol/L 96 - 10 9 mmol/L [facility] CO2 (BldMV) [Moles/Vol] 32 mmol/L High 22 - 30 mmol/L [facility] Creatinine [Mass/Vol] 0.67 mg/dL 0.52 - 1.04 mg/dL [facility] GFR/1.73 sq M.predicted MDRD (S/P/Bld) [Vol rate/Area] - PINF [facility] Comment on above: eGFR calculation bas [...] 104 mg/dL High 65 - 100 mg/dL [facility] Interpretation and review of laboratory results Abnormal [facility] Potassium [Moles/Vol] 4.6 mmol/L 3.6 - 5.1 mmol/L [facility] Sodium [Moles/Vol] 138 mmol/L 135 - 147 mmol/L [facility] CBC AND DIFFERENTIALon 08-12 ABSOLUTE BASOPHIL 0.0 x10*3/uL Normal 0.0-0.1 [facility] Comment on above: Performed By: #### 4 [id number] #### [address] ABSOLUTE EOSINOPHIL 0.1 x10*3/uL Normal 0.1-0.3 [facility] Comment on above: Performed By: #### 4 [id number] #### [address] ABSOLUTE IMMATURE GRANULOCYTES 0.0 x10*3/uL Normal 0.0-0.1 [facility] Comment on above: Performed By: #### 4 [id number] #### [address] ABSOLUTE LYMPH 1.6 x10*3/uL Normal 1.2-3.3 [facility] Comment on above: Performed By: #### 4 [id number] #### [address] ABSOLUTE MONO 0.3 x10*3/uL Normal 0.2-0.6 [facility] Comment on above: Performed By: #### 4 [id number] #### [address] ABSOLUTE NEUTROPHIL 3.1 x10*3/uL Normal 2.4-6.6 [facility] Comment on above: Performed By: #### 4 [id number] #### [address] Basophils/100 WBC (Bld) 0.8 % Normal [facility] Comment on above: Performed By: #### 4 [id number] #### [address] Eosinophils/100 WBC (Bld) 2.7 % Normal [facility] Comment on above: Performed By: #### 4 [id number] #### [address] Erythrocyte distribution width (RBC) [Ratio] 13.0 % Normal 11.5-14.5 [facility] Comment on above: Performed By: #### 4 [id number] #### [address] Hematocrit (Bld) [Volume fraction] 37.5 % Normal 33.6-46.8 [facility] Comment on above: Performed By: #### 4 [id number] #### [address] Hemoglobin (Bld) [Mass/Vol] 11.8 g/dL Normal 11.7-15.8 [facility] Comment on above: Performed By: #### 4 [id number] #### [address] Immature granulocytes/100 WBC (Bld) 0.4 % Normal [facility] Comment on above: Performed By: #### 4 [id number] #### [address] Lymphocytes/100 WBC (Bld) 31.5 % Normal [facility] Comment on above: Performed By: #### 4 [id number] #### [address] MCH (RBC) [Entitic mass] 26.5 pg Low 27.5-32.3 [facility] Comment on above: Performed By: #### 4 [id number] #### [address] MCHC (RBC) [Mass/Vol] 31.5 g/dL Normal 30.7-35.5 [facility] Comment on above: Performed By: #### 4 [id number] #### [address] MCV (RBC) [Entitic vol] 84.3 fL Normal 80.2-99 [facility] Comment on above: Performed By: #### 4 [id number] #### [address] Monocytes/100 WBC (Bld) 5.4 % Normal [facility] Comment on above: Performed By: #### 4 [id number] #### [address] Neutrophils/100 WBC (Bld) 59.2 % Normal [facility] Comment on above: Performed By: #### 4 [id number] #### [address] NUCLEATED RED BLOOD CELLS AUTO 0.0 % Normal 0.0-1.0 [facility] Comment on above: Performed By: #### 4 [id number] #### [facility] [address] [place] [address] PLATELET COUNT 299 x10*3/uL Normal 150-400 [facility] Comment on above: Performed By: #### 4 [id number] #### [facility] [address] RED BLOOD CELL COUNT 4.45 x10*6/uL Normal 3.60-5.20 [facility] Comment on above: Performed By: #### 4 [id number] #### [facility] [address] WHITE BLOOD CELLS 5.2 x10*3/uL Normal 4.3-10.3 [facility] Comment on above: Performed By: #### 4 [id number] #### [address] CBC with differentialOrdered By: Background Lab on 08-12-2023 Absolute Immature Granulocytes 0.0 [facility] Age [Time] 84.3 fL 80.2 - 99 fL [facility] Age [Time] 26.5 pg Low 27.5 - 32.3 pg [facility] Age [Time] 31.5 g/dL 30.7 - 35.5 g/dL [facility] B. burgdorferi IgM IB Ql (CSF) 31.5 % [facility] Basophils (Bld) [#/Vol] 0.0 10*3/uL [facility] Basophils/100 WBC (Body fld) 0.8 % [facility] Eosinophils (Bld) [#/Vol] 1.6 10*3/uL [facility] Eosinophils (Bld) [#/Vol] 0.3 10*3/uL [facility] Eosinophils (Bld) [#/Vol] 0.1 10*3/uL [facility] Eosinophils/100 WBC (Bld) 2.7 % [facility] Erythrocyte distribution width (RBC) [Ratio] 13.0 % 11.5 - 14.5 % [facility] Hematocrit (Bld) [Volume fraction] 37.5 % 33.6 - 46.8 % [facility] Hexanoylglycine (U) [Moles/Vol] 11.8 g/dL 11.7 - 15.8 g/dL [facility] Immature granulocytes/100 WBC (Bld) 0.4 % [facility] Interpretation and review of laboratory results Abnormal [facility] Monocytes/100 WBC (Bld) 5.4 % [facility] Neurotensin (P) [Mass/Vol] 59.2 % [facility] Neutrophils (Bld) [#/Vol] 3.1 10*3/uL [facility] Nucleated RBC/100 WBC (Bld) [Ratio] 0.0 % 0.0 - 1.0 % [facility] Platelets (Bld) [#/Vol] 299 10*3/uL [facility] RBC (Bld) [#/Vol] 4.45 10*6/uL [facility] WBC (Bld) [#/Vol] 5.2 10*3/uL [facility] CT ABDOMEN PELVIS WITH IV CO NTRASTon [...] 20 RAC Omni 300 100 ml Normal [facility] HEPATIC FUNCTION PANELon Albumin [Mass/Vol] 4.0 g/dL Normal 3.5-5.0 [facility] Comment on above: Performed By: #### 4 [id number], [id number], [id number], [id number] #### [address] [address] ALK PHOS 104 U/L Normal 24-126 [facility] Comment on above: Performed By: #### 4 [id number], [id number], [id number], [id number] #### [address] [address] [facility] ALT [Catalytic activity/Vol] 50 U/L High 4-35 [facility] Comment on above: Performed By: #### 4 [id number], [id number], [id number], [id number] #### [address] [address] [facility] AST [Catalytic activity/Vol] 59 U/L High 3-47 [facility] Comment on above: Performed By: #### 4 [id number], [id number], [id number], [id number] #### [address] Bilirubin [Mass/Vol] 0.1 mg/dL Low 0.2-1.6 [facility] Comment on above: Performed By: #### 4 [id number], [id number], [id number], [id number] #### [address] Bilirubin.indirect [Mass/Vol] 0.1 mg/dL Normal <=0.5 [facility] Comment on above: Performed By: #### 4 [id number], [id number], [id number], [id number] #### [address] Protein [Mass/Vol] 6.6 g/dL Normal 6.3-8.2 [facility] Comment on above: Performed By: #### 4 [id number], [id number], [id number], [id number] #### [address] Hepatic Function Panelon Albumin (Syn fld) [Mass/Vol] 4.0 g/dL 3.5 - 5.0 g/dL [facility] Aldosterone (U) [Mass/Vol] 104 U/L 24 - 126 U/L [facility] ALT [Catalytic activity/Vol] 50 U/L High 4 - 35 U/L [facility] AST [Catalytic activity/Vol] 59 U/L High 3 - 47 U/L [facility] Bilirubin [Mass/Vol] 0.1 mg/dL Low 0.2 - 1 .6 mg/dL [facility] Bilirubin.conjugated [Mass/Vol] 0.1 mg/dL NINF - 0.5 mg/dL [facility] Protein [Mass/Vol] 6.6 g/dL 6.3 - 8.2 g/dL [facility] LIPASEon 08-12-2023 Lipase [Catalytic activity/Vol] 11 U/L Low 23-300 [facility] Comment on above: Performed By: #### 4 [id number], [id number], [id number], [id number] #### [address] Lipaseon 08-12-2023 Lipase [Catalytic activity/Vol] 11 U/L Low 23 - 300 U/L [facility] No Panel Informationon 08-12 Extra Tube Hold for add-ons. [facility] [place] [place] Interpretation and review of laboratory results Abnormal [facility] [place] [place] POCT ED/FC/GSC Urine PregOrd ered By: Della Hays on 08-12-2023 Beta HCG ( test) Ql (U) Negative [facility] Interpretation and review of laboratory results Normal [facility] Aeronautical Engineering Officer Acceptable yes [facility] [place] [place] TROPONIN Ion 08-12-2023 Troponin I.cardiac [Mass/Vol] ng/mL Normal <=0.033 [facility] Comment on above: Result Comment: Nega tive: No detectable troponin-I. Performed By: #### 4 [id number] #### [place] [address] [place] TROPONIN I SERIESon 08-12-20 Troponin I.cardiac [Mass/Vol] ng/mL Normal <=0.033 [facility] Comment on above: Result Comment: Nega tive: No detectable troponin-I. Performed By: #### 4 [id number], [id number], [id number], [id number] #### [address] [address] [place] Troponin I (One time)on Interpretation and review of laboratory results Normal [facility] Troponin I.cardiac [Mass/Vol] ng/mL [facility] ng/mL [facility] Comment on above: Negative: No detectable troponin-I. [facility] Troponin I - Series (X 3)on 08-12-2023 Interpretation and review of laboratory results Normal [facility] Troponin I.cardiac [Mass/Vol] ng/mL NINF - 0.033 ng/mL [facility] Comment on above: Negative: No detectable troponin-I. [facility] URINALYSIS WITH REFLEX CULTU REon 08-12-2023 Appearance (U) Clear Normal [facility] Comment on above: Performed By: #### 4 [id number] #### [address] BILIRUBIN UA Negative Normal Negative [facility] Comment on above: Performed By: #### 4 [id number] #### [address] Color (U) Yellow Normal [facility] Comment on above: Performed By: #### 4 [id number] #### [address] Glucose Ql (U) Negative Normal Negative [facility] Comment on above: Performed By: #### 4 [id number] #### [place] [address] [place] Ketones Ql (U) Negative Normal Negative [facility] Comment on above: Performed By: #### 4 [id number] #### [address] LEUKOESTERASE Negative Normal Negative [facility] Comment on above: Performed By: #### 4 [id number] #### [address] MUCOUS-URINE Occasional Normal [facility] Comment on above: Performed By: #### 4 [id number] #### [place] [address] [place] Nitrite Ql (U) Negative Normal Negative [facility] Comment on above: Performed By: #### 4 [id number] #### [address] OCCULT BLD Negative Normal Negative [facility] Comment on above: Performed By: #### 4 [id number] #### [place] [address] [place] PH, URINE 5.0 Normal [facility] Comment on above: Performed By: #### 4 [id number] #### [address] Protein Ql (U) Negative Normal Negative [facility] Comment on above: Performed By: #### 4 [id number] #### [place] [id number] RBC LM.HPF (Urine sed) [#/Area] /[HPF] Normal <=5 [facility] Comment on above: Performed By: #### 4 [id number] #### [address] SPECIFIC GRAVITY, URINE 1.025 Normal [facility] Comment on above: Performed By: #### 4 [id number] #### [address] SQUAMOUS EPI CELLS 51 /LPF Normal [facility] Comment on above: Performed By: #### 4 [id number] #### [address] UROBILINOGEN UA Negative Normal <2.0 [facility] Comment on above: Performed By: #### 4 [id number] #### [address] WBC LM.HPF (Urine sed) [#/Area] 2 /[HPF] Normal <=5 [facility] Comment on above: Performed By: #### 4 [id number] #### [address] Urinalysis complete W Reflex Culture panel (U)on 08-12-2023 Acetone [Mass/Vol] Negative Negative [facility] Appearance (Body fld) Clear [facility] Bilirubin Ql (U) Negative Negative [facility] Color (Stone) Yellow [facility] G6PD (RBC) [Catalytic activity/Vol] Negative Negative [facility] Hemoglobin Ql (U) NINF [facility] Leukocyte esterase Test strip Ql (U) Negative Negative [facility] Mucor racemosus IgE Qn (S) Occasional /LPF [facility] Nitrite Test strip (U) [Mass/Vol] Negative Negative [facility] pH (Migue fld) 5.0 [facility] Protein (U) [Mass/Vol] Negative Negative [facility] IgE Qn (S) Negative Negative [facility] Specific gravity (U) [Rel density] 1.025 [facility] Spherocytes LM Ql (Bld) 51 /LPF [facility] Urobilinogen Qn (U) Negative NINF - 2.0 [facility] WBC (U) [#/Vol] 2 /uL NINF [facility] 36on 08-02-2023 36 Call placed to patie nt to discuss how often she is taking Miralax. Patient is taking Miralax once daily as instructed. Per Alba Montague she was instructed that she can take it twice a day. Also advised patient that Alba Montague will be consulting with the physician who performed her procedure. [facility] Orders Onlyon 08-02-2023 Orders Only [id number] Darrian Leal 1970 F Date Provider Department Center 08/02/2023 Karli-GIANA MORALES [facility] Gerardo Heal No family history on file [facility] CNOVon 07-31-2023 CNOV Office Visit (SHERON ) ----- MARY LEAL ([id number]) 1970 F Date Time Provider Department 07/31/23 2:30 PM NELSY CHÁVEZ During your visit today, we recorded the following information about you: Pulse Blood pressure Weight Height 76/minute 136/96 69.9 kg 1.626 m Nelsy Chávez APRN.CHILD DAY CARE PROVIDER 07/31/2023 5:35 PM Signed Female Pelvic Medicine [...] new Pain: no Abnormal Vaginal Discharge: no INVENTORY TAKER 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 She has no history of an abnormal mammogram with cysts on US LMP: No LMP recorded. Patient has had a hysterectomy.; Menopause 3 years ago; hysterectomy in 2015: Menstrual history: NA; Deliveries: I have confirmed and edited as necessary, the PFSH obtained by others. Nelsy Chávez APRN.CHILD DAY CARE PROVIDER Lubricating Machine Tender offered: Patient declines. OBJECTIVE: There were no [...] for now d/t side effects Nelsy Chávez APRN.CHILD DAY CARE PROVIDER I spent a total of 45 minutes on the date of the service which included preparing to see the patient, [id number] patient care, completing clinical documentation, performing a [...] [R35.0] Nocturia [R35.1] Order(s):UA DIP, URINE (POC) [5002898] Order #: [id number]. #:[id number] 45-LAB URODYNAMICS [facility] [9381836] Order #: [id number] Prescriptions as of 07/31/2023 - atenolol (TENORMIN) [...] 10 m (more content not included)... [facility] UA DIP, URINE (POC)on 2022 BILIRUBIN UA (POCT) Negative Negative [facility] CLARITY UA (POCT) Clear [facility] COLOR UA (POCT) Yellow [facility] GLUCOSE UA (POCT) Negative Negative mg/dL [facility] Hemoglobin Ql (U) Negative Negative [facility] KETONE UA (POCT) Negative Negative mg/dL [facility] LEUKOCYTES UA (POCT) Negative Negative [facility] NITRITE UA (POCT) Negative Negative [facility] PH UA (POCT) 5.0 4.5 - 8.0 [facility] Protein Ql (U) Negative Negative mg/dL [facility] SPECIFIC GRAVITY UA (POCT) 1.010 1.005 - 1.030 [facility] UROBILINOGEN UA (POCT) 0.2 E.U./dL Brenda l E.U./dL [facility] HISTOLOGY - TISSUE EXAMon LAB AP ASR [...] Clinical Laboratory Improvement Amendments of 1998. Normal [facility] Comment on above: Performed By: #### L [id number] ####[facility] (BEAKER)[address] [place] [address] LAB AP CASE REPORT Normal [facility] Comment on above: Result Comment: Surg ical Pathology Case: [id number] Authorizing Provider: Matteo Quinones MD Collected: 07/25/2023 1126 Ordering Location: Eliceo Silva [facility] Received: 07/25/2023 1233 [facility] [place] Pathologist: Boni Benito MD Specimens: A) - Small Intestine, Duodenum, R/O CELIAC B) - Gastric, R/O H PYLORI C) - Distal Esophagus, R/O EOE D) - Proximal Esophagus, R/O EOE E) - Small Intestine, Terminal Ileum, R/O COLITIS Performed By: #### L [id number] ####[facility] (BEAKER)[address] [facility] [place] [address] LAB AP CLINICAL INFORMATION Order Diagnoses Normal [facility] Comment on above: Result Comment: K21. 9 - Gastroesophageal reflux disease without esophagitis [ICD-10-CM] R11.0 - Nausea [ICD-10-CM] R19.7 - Diarrhea, unspecified type [ICD-10-CM] Performed By: #### L [id number] ####[facility] (BEAKER)[address] [facility] [place] [address] LAB AP GROSS DESCRIPTION Normal [facility] Comment on above: Result Comment: A. S mall Intestine, Duodenum. Received in formalin in a container labeled Maryjose Leal, Duodenum R/O CELIAC . It consists [...] formalin in a container labeled Maryjose Leal, Proximal Eso R/O EOE . It consists of 2, soft, jaimes-white tissue biopsy fragments measuring 0.4 x 0.2 x 0.1 cm in aggregate. The entire specimen is submitted in 1 cassette. Leyla Goetz, PGY 1 E. Small Intestine, Terminal Ileum. Received in formalin in a container labeled Maryjose Ornelasgs, Terminal Ile R/O COLITIS . It consists of 2, soft, jaimes-white tissue biopsy fragments measuring 0.3 x 0.2 x 0.2 cm and 0.1 x 0.1 x 0.1 cm in aggregate. The entire specimen is submitted in 1 cassette. Leyla Goetz, PGY 1 Performed By: #### L [id number] ####[facility] ([facility])[address] [place] [address] LAB AP MICROSCOPIC DESCRIPTION Microscopic examination performed. [facility] Comment on above: Performed By: #### L [id number] ####[facility] ([facility])[address] [place] [address] LAB AP REPORT FINAL DIAGNOSIS NARRATIVE [facility] Comment on above: Result Comment: A. [...] or malignancy identified. Performed By: #### L [id number] ####[facility] ([facility] [place] [address] HP 07-25-2023 H&P reviewed. The rigoberto montemayor was examined and there are no changes to the H&P. [facility] HP ----- ----- Attestation signed by [...] bowel movements. Plan EGD and colonoscopy Normal [facility] NURSNOTEon 07-25-2023 NURSNOTE ANASTOMOSIS SITE REACHED Normal [facility] Orders Onlyon 07-25-2023 Orders Only [id number] Darrian Leal en 1970 F Date Provider Department Center 07/25/202375720-DPAGFFILIPE PAZ [facility] No family history on file Normal [facility] POCT GLUCOSE METER UNSOLICIT ED RESULTSon 07-25-2023 Glucose [Mass/Vol] 87 mg/dL Normal 70-105 [facility] Comment on above: Order Comment: Waive d Testing in the ED is performed under the ED CLIA certificate #[id number]. Result Comment: dhol as Performed By: #### L [id number] ####[facility] (BEAKER)[address] [place] [address] Orders Onlyon 07-21-2023 Orders Only [id number] Darrian Leal en 1970 F Date Provider Department Center 07/21/2023 [facility] No family history on file Normal [facility] Orders Onlyon 07-19-2023 Orders Only [id number] Darrian Leal en 1970 F Date Provider Department Center 07/19/2023 Karli-GIANA MORALES [facility] Gerardo Heal No family history on file Normal [facility] Prep for Procedureon 023 Prep for Procedure [id number] Darrian Leal en 1970 F Date Provider Department Center 07/17/2023 Sakina-[facility]O [facility]ON[facility] No family history on file Normal [facility] HPon 07-11-2023 HP Formatting of this n ote is different from the original. Images from the original note were not included. [facility] [address] [place] [address] [address] SUBJECTIVE: Patient ID: Mary Leal is a 53 y.o. female presents today for Chief Complaint Patient presents with New Patient CHUCKIE HPI: Mary Leal is a 53 y.o. female seen at the request of Eliceo Gómez Jr., for evaluation of CHUCKIE. Has tried CPAP, no longer wearing it. Was referred by Pauline Christensen MD. Here to inquire about the Inspire hypoglossal nerve stimulator. Does not have breast implants. Never smoker. Also reports that her voice is always hoarse and she hacks up phlegm 24/7, thick and foamy. Has bad GERD, Takes Dexilant daily, sees Dr. Montague at [facility]. HISTORY: Past Medical History: Diagnosis Date [...] 03/20/2020 Performed by Noman Mayo MD at [facility] ENDOSCOPY EGD, DILATATION N/A 09/25/2020 Performed by Noman Mayo MD at [facility] ENDOSCOPY FOOT SURGERY 06/25/2020 left foot surgery HYSTERECTOMY LASER LINGUAL TONISILLECTOMY Circumferential 07/08/2021 Performed by Areli Avila MD PhD at [facility] MRI FOOT LEFT NECK SURGERY PLANTAR FASCIECTOMY RELEASE PHARYNGEAL SCAR CPT 06569 Circumferential 07/08/2021 Performed by Areli Avila MD PhD at [facility] RESECTION SUBMUCOSAL NASAL Bilateral 02/11/2021 Performed by Areli Avila MD PhD at [facility] SEPTOPLASTY Circumferential 02/11/2021 Performed by Areli Avila MD PhD at [facility] [facility] TONSILLECTOMY Bilateral 02/11/2021 Performed by Areli Avila MD PhD at [facility] uvuloplasty N/A 02/11/2021 Performed by Areli Avila MD PhD at [facility] Family History Problem Relation Age [...] tablet (3 mg total) by mouth nightly. mhutmssbcng-nxbxunmtf-ojf anter (TRELEGY ELLIPTA) 100-62.5-25 mcg blister with [...] no mor (more content not included)... Normal [facility] Orders Onlyon 06-26-2023 Orders Only [id number] Darrian Leal 1970 F Date Provider Department Center 06/26/2023 GIANA JAMES [facility] PSYCH Gerardo Heal No family history on file Normal [facility] Office Visit (Cardiology)on 06-13-2023 Follow-up visit Diagnoses/Problems Assessed Chest pain (786.50) (R07.9) Elevated troponin (790.6) (R77.8) Fatigue (780.79) (R53.83) Never a smoker Overweight with body mass index (BMI) of 27 to 27.9 in adult (278.02,V85.23) (E66.3,Z68.27) Orders Elevated troponin IO EKG Electrocardiogram- 12 Lead; Status:Active - Perform Order,Retrospective Authorization; Requested for:[id number]; Overweight with body mass index (BMI) of 27 to 27.9 in adult Healthy Weight Tips; Status:Complete - Retrospective Authorization; Done: [id number] Some eating tips that can help you lose weight.; Status:Complete - Retrospective Authorization; Done: [id number] SocHx: Never a smoker Tobacco Use Screening; Status:Complete; Done: [id number] Patient Instructions Please bring all medicines, vitamins, [...] weakness, dizziness, diaphoresis with recent work-up that [facility]. Reportedly her troponins are elevated [...] of which are currently being investigated at [facility] (now her fourth GI specialist). Last year while in [place] she had similar issues with elevated troponins in the ED and underwent heart catheterization that did not reveal any specific significant disease, details of the discharge summary are reviewed She underwent recent stress perfusion [facility] at [facility], the report is reviewed, she has no [...] disease, will investigate the troponin rise at [facility] however I believe this is likely a non-VA troponin elevation, likely associated with underlying inflammatory [...] negative for complaint. Vitals Vital Signs Recorded: [id number] 10:37AM Heart Rate70, Apical Nverufja370, RUE, Sitting Vkdhbkopo86, RUE, Sitting Height5 ft 4 in Ijndnx703 lb BMI Fposeessyd60.46 kg/m2 BSA Calculated1.78 Tobacco Useb) No PHQ-2 [...] #1. Lit (more content not included)... Normal [facility] Tobacco Screening.on 08-08-2 023 Adult depression screening assessment No [facility] [address] DO Work Phone: Adult depression screening assessment Yes [facility] io [facility] [address] DO Work Phone: Adult depression screening assessment Moderate (10-14) [facility] heather [facility] [address] DO Work Phone: Fall risk assessment a) No falls within the last year [facility] [address] DO Work Phone: Tobacco use status CPHS b) No [facility] [address] DO Work Phone: Tobacco Screening. 1-Several days [facility] [address] DO Work Phone: Tobacco Screening. 3-Nearly every day [facility] 320 DO Work Phone: Tobacco Screening. 0-Not at all [facility] [address] DO Work Phone: Tobacco Screening. Somewhat Difficult [facility] 320 DO Work Phone: STR cardiac stress/lexiscano n 06-09-2023 STR cardiac stress/lexiscan [facility] [place] [address] Cardiac Stress Test Signed Patient: Mary Leal MR#: [id number] 863 : 1970 Acct:[id number] Age/Sex: 53 / F ADM Date: 06/05/23 Loc: ER Room: Type: [facility] ER Attending Dr: Copies to: [...] 06/09/23 1614 Dictated By: Marielle Scruggs MD, [facility] 06/09/23 1550 Signed By: 06/10/23 0903 Normal [facility] Behavioral Health Telemedici neon 06-08-2023 Behavioral Health Telemedicine [id number] Mary Leal 1970 F Date Provider Department Center 06/08/2023 GIANA JAMES [facility] PSYCH Gerardo Heal No family history on file Level of Service:70552 [place] OFFICE/OUTPATIENT ESTABLISHED MOD [facility] 30-39 MIN Reason for Visit and Comments: Telehealth Audio/video Visit [871] Normal [facility] NM mirtha perf SPECT rest stron 06-08-2023 NM mirtha perf SPECT rest str [facility] [place] [address] Nuclear Medicine Report Signed Patient: Mary Leal MR#: [id number] 863 : 1970 Acct:[id number] Age/Sex: 53 / F ADM Date: 06/05/23 Loc: ER Room: Type: [facility] ER Attending Dr: Copies to: DO Marielle Soto MD, [facility] Ordering Provider: Anibal Valle DO Date [...] studies are available for comparison. Transcribed By: KINSEY 06/08/23 7834 Dictated By: Marielle Scruggs MD, [facility] 06/08/23 1540 Signed By: 06/09/23 1532 Normal [facility] 36on 06-05-2023 36 Patient calls wonder ing about her calprotectin being high. Please advise Normal [facility] Activated partial thrombopla stin time (aPTT) in platelet poor plasma by coagulation aOrdered By: Anibal Valle on 06-05-2023 aPTT Coag (PPP) [Time] 28.0 s 25.1-36.5 [place] B-Type Natriuretic Peptideon 06-05-2023 Natriuretic peptide B (Bld) [Mass/Vol] 39.0 pg/mL Normal 5-100 [facility] Comment on above: Result Comment: PERF ORMED BY: [facility] [address] [place] [address] PATHOLOGIST DREDGE ENGINEER LEVAR CASE M.D. Performed By: #### H S TROP, BNP, BMP, CBC, PTT, PT ####[facility] [id number] [place] [address] [facility] Basic Metabolic Panelon 05-08 Anion gap [Moles/Vol] 10.6 mmol/L Normal 6.0-15.0 [place] Comment on above: Performed By: #### H S TROP, BNP, BMP, CBC, PTT, PT ####[facility] [id number] [place] [address] [facility] Calcium [Mass/Vol] 9.0 mg/dL Normal 8.6-10.3 [facility] Comment on above: Performed By: #### H S TROP, BNP, BMP, CBC, PTT, PT ####[facility] [address] [place] [address] [facility] Chloride [Moles/Vol] 108 mmol/L High 98-107 [facility] Comment on above: Performed By: #### H S TROP, BNP, BMP, CBC, PTT, PT ####[place] [address] CO2 [Moles/Vol] 23.2 mmol/L Normal 21.0-31.0 [facility] Comment on above: Performed By: #### H S TROP, BNP, BMP, CBC, PTT, PT ####[place] [address] [place] [id number] [facility] Creatinine [Mass/Vol] 0.67 mg/dL Normal 0.60-1.20 [facility] Comment on above: Performed By: #### H S TROP, BNP, BMP, CBC, PTT, PT ####[place] [address] Creatinine Clr Calc Pharmacy 97.82 [facility] Comment on above: Result Comment: PERF ORMED BY: [facility] [address] [facility] [place] [address] PATHOLOGIST DREDGE ENGINEER LEVAR CASE M.D. Performed By: #### H S TROP, BNP, BMP, CBC, PTT, PT ####[address] GFR/1.73 sq M.predicted MDRD (S/P/Bld) [Vol rate/Area] mL/min/{1.73_m2} [facility] Comment on above: Performed By: #### H S TROP, BNP, BMP, CBC, PTT, PT ####[place] [address] [place] [id number] [facility] Glucose [Mass/Vol] 106 mg/dL High 70-100 [facility] Comment on above: Result Comment: [place] Glucose Reference Range is dependent on time and content of last meal. Glucose of more than 200 mg/dL in a nonstressed, ambulatory subject supports the diagnosis of Diabetes Mellitus. ADA recommended reference range Performed By: #### H S TROP, BNP, BMP, CBC, PTT, PT ####[facility] [id number] [place] [id number] [facility] Potassium [Moles/Vol] 3.8 mmol/L Normal 3.5-5.1 [facility] Comment on above: Performed By: #### H S TROP, BNP, BMP, CBC, PTT, PT ####[facility] [id number] [place] [id number] [facility] Sodium [Moles/Vol] 138 mmol/L Normal 136-145 [facility] Comment on above: Performed By: #### H S TROP, BNP, BMP, CBC, PTT, PT ####[facility] [id number] Urea nitrogen [Mass/Vol] 10 mg/dL Normal 7-25 [facility] Comment on above: Performed By: #### H S TROP, BNP, BMP, CBC, PTT, PT ####[facility] Basophils Auto (Bld) [#/Vol] Ordered By: Anibal Valle on 06-05-2023 Basophils (Bld) [#/Vol] 0.0 10*3/uL 0.0-0.2 [facility] Basophils/100 WBC Auto (Bld) Ordered By: Anibal Valle on 06-05-2023 Basophils/100 WBC (Bld) 0.4 % . [facility] Calcium [Mass/volume] in Ser um or PlasmaOrdered By: Anibal Valle on 06-05-2023 Calcium [Mass/Vol] 9.0 mg/dL 8.6-10.3 [facility] Carbon dioxide, total [Moles /volume] in Serum or PlasmaOrdered By: Anibal Valle on 06-05-2023 CO2 [Moles/Vol] 23.2 mmol/L 21.0-31.0 [facility] Chloride [Moles/volume] in S jay or PlasmaOrdered By: Anibal Valle on 06-05-2023 Chloride [Moles/Vol] 108 mmol/L 98-107 [facility] Complete Blood Count Auto Di ffon 06-05-2023 Basophils (Bld) [#/Vol] 0.0 10*3/uL Normal 0.0-0.2 [facility] Comment on above: Result Comment: PERF ORMED BY: [place] [address] PATHOLOGIST DREDGE ENGINEER LEVAR CASE M.D. Performed By: #### H S TROP, BNP, BMP, CBC, PTT, PT #### [address] Basophils/100 WBC (Bld) 0.4 % Normal . [facility] Comment on above: Performed By: #### H S TROP, BNP, BMP, CBC, PTT, PT #### [address] Eosinophils (Bld) [#/Vol] 0.1 10*3/uL Normal 0.0-0.45 [facility] Comment on above: Performed By: #### H S TROP, BNP, BMP, CBC, PTT, PT #### [address] Eosinophils/100 WBC (Bld) 1.9 % Normal . [facility] Comment on above: Performed By: #### H S TROP, BNP, BMP, CBC, PTT, PT #### [address] Erythrocyte distribution width (RBC) [Ratio] 13.9 % Normal 11.9-15.3 [facility] Comment on above: Performed By: #### H S TROP, BNP, BMP, CBC, PTT, PT #### [address] Hematocrit (Bld) [Volume fraction] 34.4 % Normal 34.0-46.4 [facility] Comment on above: Performed By: #### H S TROP, BNP, BMP, CBC, PTT, PT #### [address] Hemoglobin (Bld) [Mass/Vol] 11.9 g/dL Normal 11.8-15.4 [facility] Comment on above: Performed By: #### H S TROP, BNP, BMP, CBC, PTT, PT #### [address] Lymphocytes (Bld) [#/Vol] 1.8 10*3/uL Normal 1.00-4.8 [facility] Comment on above: Performed By: #### H S TROP, BNP, BMP, CBC, PTT, PT #### [address] Lymphocytes/100 WBC (Bld) 41.0 % Normal . [facility] Comment on above: Performed By: #### H S TROP, BNP, BMP, CBC, PTT, PT #### [address] MCH (RBC) [Entitic mass] 27.7 pg Normal 24.7-34.3 [facility] Comment on above: Performed By: #### H S TROP, BNP, BMP, CBC, PTT, PT #### [address] MCV (RBC) [Entitic vol] 80.2 fL Normal 80-100 [facility] Comment on above: Performed By: #### H S TROP, BNP, BMP, CBC, PTT, PT #### [address] Mean Corpuscular HGB Conc 34.5 g/dL Normal 32.0-35.0 [facility] Comment on above: Performed By: #### H S TROP, BNP, BMP, CBC, PTT, PT #### [address] Monocytes (Bld) [#/Vol] 0.3 10*3/uL Normal 0.0-0.8 [facility] Comment on above: Performed By: #### H S TROP, BNP, BMP, CBC, PTT, PT #### [address] Monocytes/100 WBC (Bld) 24.18 % High 0.00-20.00 [facility] Comment on above: Result Comment: For adults in ED, MDW > 20.0 may be associated with a higher risk of sepsis during the first 12 hrs of hospital admission Performed By: #### H S TROP, BNP, BMP, CBC, PTT, PT #### [address] Monocytes/100 WBC (Bld) 7.5 % Normal . [facility] Comment on above: Performed By: #### H S TROP, BNP, BMP, CBC, PTT, PT #### [address] Neutrophils (Bld) [#/Vol] 2.2 10*3/uL Normal 1.8-7.7 [facility] Comment on above: Performed By: #### H S TROP, BNP, BMP, CBC, PTT, PT #### [address] Neutrophils/100 WBC (Bld) 49.2 % Normal . [facility] Comment on above: Performed By: #### H S TROP, BNP, BMP, CBC, PTT, PT #### [address] NRBC% 0.1 /100{WBC} Normal 0-0.5 [facility] Comment on above: Performed By: #### H S TROP, BNP, BMP, CBC, PTT, PT #### [address] Platelet mean volume (Bld) [Entitic vol] 7.4 fL Normal 6.3-10.7 [facility] Comment on above: Performed By: #### H S TROP, BNP, BMP, CBC, PTT, PT #### [address] Platelets (Bld) [#/Vol] 336 10*3/uL Normal 150-450 [facility] Comment on above: Performed By: #### H S TROP, BNP, BMP, CBC, PTT, PT #### [address] RBC (Bld) [#/Vol] 4.29 10*6/uL Normal 3.60-5.00 [facility] Comment on above: Performed By: #### H S TROP, BNP, BMP, CBC, PTT, PT #### [facility] [address] WBC (Bld) [#/Vol] 4.4 10*3/uL Normal 3.8-11.6 [facility] Comment on above: Performed By: #### H S TROP, BNP, BMP, CBC, PTT, PT #### [facility] [address] Creatinine [Mass/volume] in Serum or PlasmaOrdered By: Anibal Valle on 06-05-2023 Creatinine [Mass/Vol] 0.67 mg/dL 0.60-1.20 [facility] ECG 12 lead ECGon 06-05-2023 ECG 12 lead ECG [facility] [place] [address] Electrocardiograph Report Signed Patient: Mary Leal MR#: [id number] 863 : 1970 Acct:[id number] Age/Sex: 53 / F ADM Date: 06/05/23 Loc: ER Room: Type: [facility] ER Attending Dr: Ordering Provider: [...] was found Confirmed by ANIBAL VALLE DO ([id number]) on 06/05/2023 4:21:05 PM Referred By: Electronically Signed By:ANIBAL VALLE DO Transcribed By: MUS Signed By Anibal Valle DO 06/05 1621 Normal [facility] ECG 12 lead ECG [facility] [place] [address] Electrocardiograph Report Signed Patient: Mary Leal MR#: [id number] 863 : 1970 Acct:[id number] Age/Sex: 53 / F ADM Date: 06/05/23 Loc: ER Room: Type: [facility] ER Attending Dr: Ordering Provider: [...] was found Confirmed by ANIBAL VALLE DO ([id number]) on 06/05/2023 4:21:06 PM Referred By: Electronically Signed By:ANIBAL VALLE DO Transcribed By: MUS Signed By Anibal Valle DO 06/05 1621 Normal [facility] Eosinophils Auto (Bld) [#/Vo l]Ordered By: Anibal Valle on 06-05-2023 Eosinophils (Bld) [#/Vol] 0.1 10*3/uL 0.0-0.45 [facility] Eosinophils/100 WBC Auto (Bl d)Ordered By: Anibal Valle on 06-05-2023 Eosinophils/100 WBC (Bld) 1.9 % . [facility] Erythrocyte distribution wid th Auto (RBC) [Ratio]Ordered By: Anibal Valle on 06-05-2023 Erythrocyte distribution width (RBC) [Ratio] 13.9 % 11.9-15.3 [facility] Glucose [Mass/volume] in Ser um or PlasmaOrdered By: Anibal Valle on 06-05-2023 Glucose [Mass/Vol] 106 mg/dL 70-100 [facility] Comment on above: ADA recommended refe rence rangeRandom Glucose Reference Range is dependent on time and content of last meal. Glucose of more than 200 mg/dL in a nonstressed, ambulatory subject supports the diagnosis of Diabetes Mellitus. Hematocrit Auto (Bld) [Volum e fraction]Ordered By: Anibal Valle on 06-05-2023 Hematocrit (Bld) [Volume fraction] 34.4 % 34.0-46.4 [facility] Hemoglobin [Mass/volume] in BloodOrdered By: Anibal Valle on 06-05-2023 Hemoglobin (Bld) [Mass/Vol] 11.9 g/dL 11.8-15.4 [facility] Laboratory - CoagulationOrde red By: Anibal Valle on 06-05-2023 PT Coag (PPP) [Time] 12.0 s 9.0-12.9 [facility] Leukocytes [#/volume] correc herbert for nucleated erythrocytes in Blood by Automated counOrdered By: Anibal Valle on 06-05-2023 WBC corrected for nucl RBC Auto (Bld) [#/Vol] 4.4 10*3/uL 3.8-11.6 [facility] Lymphocytes Auto (Bld) [#/Vo l]Ordered By: Anibal Valle on 06-05-2023 Lymphocytes (Bld) [#/Vol] 1.8 10*3/uL 1.00-4.8 [facility] Lymphocytes/100 WBC Auto (Bl d)Ordered By: Anibal Valle on 06-05-2023 Lymphocytes/100 WBC (Bld) 41.0 % . [facility] MCH Auto (RBC) [Entitic mass ]Ordered By: Anibal Valle on 06-05-2023 MCH (RBC) [Entitic mass] 27.7 pg 24.7-34.3 [facility] MCHC Auto (RBC) [Mass/Vol]Or dered By: Anibal Valle on 06-05-2023 MCHC (RBC) [Mass/Vol] 34.5 g/dL 32.0-35.0 [facility] MCV Auto (RBC) [Entitic vol] Ordered By: Anibal Valle on 06-05-2023 MCV (RBC) [Entitic vol] 80.2 fL 80-100 [facility] Monocyte distribution width [Entitic volume] in Blood by AutomatedOrdered By: Anibal Valle on 06-05-2023 Monocyte distribution width Auto (Bld) [Entitic vol] 24.18 % 0.00-20.00 [facility] Comment on above: For adults in ED, MD W > 20.0 may be associated with a higher risk of sepsis during the first 12 hrs of hospital admission Monocytes Auto (Bld) [#/Vol] Ordered By: Anibal Valle on 06-05-2023 Monocytes (Bld) [#/Vol] 0.3 10*3/uL 0.0-0.8 [facility] Monocytes/100 WBC Auto (Bld) Ordered By: Anibal Valle on 06-05-2023 Monocytes/100 WBC (Bld) 7.5 % . [facility] Natriuretic peptide B [Mass/ Vol]Ordered By: Anibal Valle on 06-05-2023 Natriuretic peptide B (Bld) [Mass/Vol] 39.0 pg/mL 5-100 [facility] Neutrophils Auto (Bld) [#/Vo l]Ordered By: Anibal Valle on 06-05-2023 Neutrophils (Bld) [#/Vol] 2.2 10*3/uL 1.8-7.7 [facility] Neutrophils/100 WBC Auto (Bl d)Ordered By: Anibal Valle on 06-05-2023 Neutrophils/100 WBC (Bld) 49.2 % . [facility] No Panel InformationOrdered By: Anibal Valle on 06-05-2023 Estimated GFR (CKD-EPI) > 60.0 mL/Min [facility] Creatinine Clearance (Chem 97.82 [facility] Nucleated erythrocytes [Pres ence] in Blood by Automated countOrdered By: Anibal Valle on 06-05-2023 Nucleated RBC Auto Ql (Bld) 0.1 /100{WBC} 0-0.5 [facility] Partial Thromboplastin Timeo n 06-05-2023 aPTT Coag (Bld) [Time] 28.0 s Normal 25.1-36.5 [place] Comment on above: Result Comment: PERF ORMED BY: [facility] [address] [place] [address] PATHOLOGIST DREDGE ENGINEER LEVAR CASE M.D. Performed By: #### H S TROP, BNP, BMP, CBC, PTT, PT ####[facility] [address] [place] [address] [facility] Platelet mean volume Auto (B ld) [Entitic vol]Ordered By: Anibal Valle on 06-05-2023 Platelet mean volume (Bld) [Entitic vol] 7.4 fL 6.3-10.7 [facility] Platelet poor plasma interna tional normalized ratio (INR) by coagulation assay (relatOrdered By: Anibal Valle on 06-05-2023 INR Coag (PPP) [Relative time] 1.0 {INR} [facility] Comment on above: INR Therapeutic Rang [...] 06-05-2023 Platelets (Bld) [#/Vol] 336 10*3/uL 150-450 [facility] Potassium [Moles/volume] in Serum or PlasmaOrdered By: Anibal Valle on 06-05-2023 Potassium [Moles/Vol] 3.8 mmol/L 3.5-5.1 [facility] Prothrombin Time INRon 06-05 INR Coag (PPP) [Relative time] 1.0 {INR} Normal [facility] Comment on above: Result Comment: INR [...] TROP, BNP, BMP, CBC, PTT, PT #### [facility] [address] [place] [address] [facility] PT Coag (PPP) [Time] 12.0 s Normal 9.0-12.9 [facility] Comment on above: Performed By: #### H S TROP, BNP, BMP, CBC, PTT, PT #### [facility] [address] RBC Auto (Bld) [#/Vol]Ordere d By: Anibal Valle on 06-05-2023 RBC (Bld) [#/Vol] 4.29 10*6/uL 3.60-5.00 [facility] Serum or plasma anion gap de terminationOrdered By: Anibal Valle on 06-05-2023 Anion gap [Moles/Vol] 10.6 mmol/L 6.0-15.0 [place] Sodium [Moles/volume] in Ser um or PlasmaOrdered By: Anibal Valle on 06-05-2023 Sodium [Moles/Vol] 138 mmol/L 136-145 [facility] Troponin I High Sensitivityo n 06-05-2023 Troponin I High Sensitivity 2.5 pg/mL Normal 0.0-15.0 [facility] Comment on above: Result Comment: PERF ORMED BY: [place] [address] PATHOLOGIST DREDGE ENGINEER LEVAR CASE M.D. Performed By: #### H S TROP #### [facility] [address] Troponin I High Sensitivity 2.6 pg/mL Normal 0.0-15.0 [facility] Comment on above: Result Comment: PERF ORMED BY: [place] [address] PATHOLOGIST DREDGE ENGINEER LEVAR CASE M.D. Performed By: #### H S TROP, BNP, BMP, CBC, PTT, PT ####[facility] [id number] [place] [id number] [facility] Troponin I.cardiac [Mass/vol ume] in Serum or Plasma by Detection limit <= 0.01 ng/Ordered By: Anibal Valle on 06-05-2023 Troponin I.cardiac DL <= 0.01 ng/mL [Mass/Vol] 2.6 pg/mL 0.0-15.0 [facility] Urea nitrogen [Mass/volume] in Serum or PlasmaOrdered By: Anibal Valle on 06-05-2023 Urea nitrogen [Mass/Vol] 10 mg/dL 05-30 [facility] WBC Auto (Bld) [#/Vol]Ordere d By: Anibal Valle on 06-05-2023 WBC (Bld) [#/Vol] 4.4 10*3/uL 3.8-11.6 [facility] XR chest 1V portableon 06-05 XR chest 1V portable [facility] [place] [address] XRay Report Signed Patient: Mary Leal MR#: [id number] 863 : 1970 Acct:[id number] Age/Sex: 53 / F ADM Date: 06/05/23 [...] Andres Bullard M.D.06/05/2023 9:53 AM Dictation Location: [place] [address] Transcribed By: [facility] 06/05/23 0953 Dictated By: Andres Bullard DO 06/05/23 0952 Signed By: 06/05/23 0953 Normal [facility] 29on 05-31-2023 29 Addended by: KASSANDRA MONTAGUE on: 06/13/2023 03:40 PM Modules accepted: Orders Normal [facility] BASIC METABOLIC PANELon 05-07 Anion gap [Moles/Vol] 12 mmol/L Normal 7-20 [facility] Comment on above: Performed By: #### L AB15 #### [facility] ([facility]) [address] [place] [address] Calcium [Mass/Vol] 9.8 mg/dL Normal 8.6-10.3 [facility] Comment on above: Performed By: #### L AB15 #### [facility] ([facility] [address] [place] [address] Chloride [Moles/Vol] 105 mmol/L Normal 98-107 [facility] Comment on above: Performed By: #### L AB15 #### [facility] ([facility]) [address] [place] [address] CO2 [Moles/Vol] 27 mmol/L Normal 21-31 [facility] Comment on above: Performed By: #### L AB15 #### [facility] ([facility]) [address] [place] [address] Creatinine [Mass/Vol] 0.75 mg/dL Normal 0.60-1.20 [facility] Comment on above: Performed By: #### L [id number] #### [facility] ([facility]) [address] [place] [address] GLOMERULAR FILTRATION RATE ML/MIN/1.73 SQ M.PREDICTED 96.3 mL/min/1.73m*2 Normal >60.0 [facility] Comment on above: Result Comment: The [facility]???s estimated glomerular filtration rate (eGFR) will no [...] individuals. Performed By: #### L [id number] #### [facility] ([facility]) [address] [place] [address] Glucose [Mass/Vol] 103 mg/dL High 70-100 [facility] Comment on above: Performed By: #### L [id number] #### [facility] ([facility]) [address] [place] [address] Potassium [Moles/Vol] 4.6 mmol/L Normal 3.5-5.1 [facility] Comment on above: Performed By: #### L [id number] #### [facility] ([facility]) [address] [place] [address] Sodium [Moles/Vol] 139 mmol/L Normal 136-145 [facility] Comment on above: Performed By: #### L [id number] #### [facility] ([facility]) [address] [place] [address] Urea nitrogen [Mass/Vol] 16 mg/dL Normal 7-25 [facility] Comment on above: Performed By: #### L [id number] #### [facility] ([facility]) [address] [place] [address] UREA NITROGEN/CREATININE (MASS RATIO) IN SER/PLAS 21.3 Normal [facility] Comment on above: Performed By: #### L [id number] #### [facility] ([facility]) [address] [place] [address] C-REACTIVE PROTEINon 023 C REACTIVE PROTEIN (MG/L) IN SER/PLAS 2.7 mg/L Normal 0.0-7.0 [facility] Comment on above: Performed By: #### L [id number] #### [facility] ([facility]) [address] [place] [address] CALPROTECTIN STOOLon 023 CALPROTECTIN, FECAL 171 ug/g High <=49 [facility] Comment on above: Result Comment: REFE RENCE INTERVAL: Calprotectin, Fecal by Immunoassay Less than 50 ug/g.........Normal 50-120 ug/g...............Borderline elevated, test should be re-evaluated in 4-6 weeks. 121 ug/g or greater.......Elevated Performed By: [employer] [address] [place] [address] Service Officer: Moisés Moreau MD, PhD Performed By: #### L [id number] #### [facility] ([facility]) [address] [place] [address] CBC WITH AUTO DIFFERENTIALon 05-31-2023 Basophils (Bld) [#/Vol] 0.06 10*3/uL Normal 0.00-0.20 [facility] Comment on above: Performed By: #### L [id number] #### [facility] ([facility]) [address] [place] [address] Basophils/100 WBC (Bld) 0.9 % Normal 0.0-1.0 [facility] Comment on above: Performed By: #### L [id number] #### [facility] ([facility]) [address] [place] [address] Eosinophils (Bld) [#/Vol] 0.09 10*3/uL Normal 0.00-0.50 [facility] Comment on above: Performed By: #### L [id number] #### [facility] ([facility]) [address] [place] [address] Eosinophils/100 WBC (Bld) 1.4 % Normal 0.0-6.0 [facility] Comment on above: Performed By: #### L [id number] #### [facility] ([facility]) [address] [place] [address] Erythrocyte distribution width (RBC) [Ratio] 12.7 % Normal 11.5-15.0 [facility] Comment on above: Performed By: #### L [id number] #### [facility] ([facility]) [address] [place] [address] ERYTHROCYTE MEAN CORPUSCULAR HEMOGLOBIN CONCENTRATION (G/DL) BY AUTOMATED 32.2 g/dL Normal 32.0-35.0 [facility] Comment on above: Performed By: #### L [id number] #### [facility] ([facility]) [address] [place] [address] Hematocrit (Bld) [Volume fraction] 37.9 % Normal 36.0-48.0 [facility] Comment on above: Performed By: #### L [id number] #### [facility] ([facility]) [address] [place] [address] Hemoglobin (Bld) [Mass/Vol] 12.2 g/dL Normal 12.0-15.0 [facility] Comment on above: Performed By: #### L [id number] #### [facility] ([facility]) [address] [place] [address] Immature granulocytes (Bld) [#/Vol] 0.02 10*3/uL Normal 0.00-0.20 [facility] Comment on above: Performed By: #### L [id number] #### [facility] ([facility]) [address] [place] [address] Immature granulocytes/100 WBC (Bld) 0.3 % Normal 0.0-1.0 [facility] Comment on above: Performed By: #### L [id number] #### [facility] ([facility]) [address] [place] [address] Lymphocytes (Bld) [#/Vol] 2.04 10*3/uL Normal 1.20-4.00 [facility] Comment on above: Performed By: #### L [id number] #### [facility] ([facility]) [address] [place] [address] Lymphocytes/100 WBC (Bld) 31.9 % Normal 20.0-45.0 [facility] Comment on above: Performed By: #### L [id number] #### [facility] ([facility]) [address] [place] [address] MCH (RBC) [Entitic mass] 27.0 pg Normal 27.0-33.0 [facility] Comment on above: Performed By: #### L [id number] #### [facility] ([facility]) [address] [place] [address] MCV (RBC) [Entitic vol] 83.8 fL Normal 82.0-98.0 [facility] Comment on above: Performed By: #### L [id number] #### [facility] ([facility]) [address] [place] [address] Monocytes (Bld) [#/Vol] 0.35 10*3/uL Normal 0.10-1.00 [facility] Comment on above: Performed By: #### L [id number] #### [facility] ([facility]) [address] [place] [address] Monocytes/100 WBC (Bld) 5.5 % Normal 5.0-12.0 [facility] Comment on above: Performed By: #### L [id number] #### [facility] ([facility]) [address] [place] [address] Neutrophils (Bld) [#/Vol] 3.83 10*3/uL Normal 1.60-7.60 [facility] Comment on above: Performed By: #### L [id number] #### [facility] ([facility]) [address] [place] [address] Neutrophils/100 WBC (Bld) 60.0 % Normal 40.0-72.0 [facility] Comment on above: Performed By: #### L [id number] #### [facility] ([facility]) [address] [place] [address] NRBC (PER 100 WBCS) BY AUTOMATED COUNT 0.0 % Normal 0 [facility] Comment on above: Performed By: #### L [id number] #### [facility] ([facility]) [address] [place] [address] PLATELETS (10*3/UL) IN BLOOD AUTOMATED COUNT 485 10*3/uL High 150-400 [facility] Comment on above: Performed By: #### L [id number] #### [facility] ([facility]) [address] [place] [address] RBC (Bld) [#/Vol] 4.52 10*6/uL Normal 3.80-5.00 [facility] Comment on above: Performed By: #### L [id number] #### [facility] ([facility]) [address] [place] [address] WBC (Bld) [#/Vol] 6.39 10*3/uL Normal 4.00-10.60 [facility] Comment on above: Performed By: #### L [id number] #### [facility] ([facility]) [address] [place] [address] ENTERIC BACTERIA, LIMITED PA RASITE DNA PANELon 05-31-2023 CAMPYLOBACTER SPECIES Negative Normal Negative [facility] Comment on above: Order Comment: Testi [...] the amplified DNA. Performed By: #### L [id number] ####[facility] ([facility])[address] [place] [address] CRYPTOSPORIDIUM (HOMINIS AND PARVUM) Negative Normal Negative [facility] Comment on above: Order Comment: Testi ng [...] the amplified DNA. Performed By: #### L [id number] ####[facility] ([facility])[address] [place] [address] ENTAMOEBA HISTOLYTICA Negative Normal Negative [facility] Comment on above: Order Comment: Testi [...] the amplified DNA. Performed By: #### L [id number] ####[facility] ([facility])[address] [place] [address] ENTEROTOXIGENIC E. COLI (ETEC) LT/ST Negative Normal Negative [facility] Comment on above: Order Comment: Testi ng [...] the amplified DNA. Performed By: #### L [id number] ####[facility] ([facility])[address] [place] [address] GIARDIA LAMBLIA Negative Normal Negative [facility] Comment on above: Order Comment: Testi ng [...] the amplified DNA. Performed By: #### L [id number] ####[facility] ([facility])[address] [place] [address] PLESIOMONAS SHIGELLOIDES Negative Normal Negative [facility] Comment on above: Order Comment: Testi ng [...] the amplified DNA. Performed By: #### L [id number] ####[facility] ([facility])[address] [place] [address] SALMONELLA SPECIES Negative Normal Negative [facility] Comment on above: Order Comment: Testi ng [...] the amplified DNA. Performed By: #### L [id number] ####[facility] ([facility])[address] [place] [address] SHIGA-LIKE TOXIN-PRODUCING E. COLI (STEC) STX1/STX2 Negative Normal Negative [facility] Comment on above: Order Comment: Testi ng [...] the amplified DNA. Performed By: #### L [id number] ####[facility] ([facility])[address] [place] [address] SHIGELLA SPECIES Negative Normal Negative [facility] Comment on above: Order Comment: Testi [...] the amplified DNA. Performed By: #### L [id number] ####[facility] ([facility])[address] [place] [address] VIBRIO SPECIES Negative Normal Negative [facility] Comment on above: Order Comment: Testi ng [...] the amplified DNA. Performed By: #### L [id number] ####[facility] ([facility])[address] [place] [address] YERSINIA ENTEROCOLITICA Negative Normal Negative [facility] Comment on above: Order Comment: Testi ng [...] the amplified DNA. Performed By: #### L [id number] ####[facility] ([facility])[address] [place] [address] IGAon 05-31-2023 Magnesium [Mass/Vol] 265 mg/dL Normal 60-413 [facility] Comment on above: Performed By: #### L [id number] #### [facility] ([facility]) [address] [place] [address] Labon 05-31-2023 Lab [id number] Darrian Leal en 1970 F Date Provider Department [place] 05/31/2023 2244-[facility] LAB RESOURCE MP DRAW Medical Pavi No family history on file Normal [facility] Office Visiton 05-31-2023 Follow-up visit [id number] Darrian Leal en 1970 Date Provider Department [place] 05/31/2023 137-[facility], [place] MP GI Medical Pavi No family history on file Level of Service:22843 [place] OFFICE/OUTPATIENT NEW MODERATE MDM 45-59 MINUTES Reason for Visit and Comments: Nausea [70] GERD [290790] Abdominal Pain [928448] New Patient [632] Normal [facility] PANCREATIC ELASTASE, FECALon 05-31-2023 PANCREATIC ELASTASE, FECAL 700 ug/g Normal >=100 [facility] Comment on above: Result Comment: REFE RENCE INTERVAL: Pancreatic Elastase Fecal by Immunoassay Less than 100 ug/g............Severe insufficiency 100 - 199 ug/g................Moderate insufficiency 200 ug/g or greater...........Normal INTERPRETIVE INFORMATION: Pancreatic Elastase Fecal by Immunoassay Reference intervals do not apply for infants less than one month old. Performed by [employer], [address] [place] [address] [id number] [email or web address], Moisés Moreau MD, PHD, Lab. Director Performed By: #### L [id number] #### [facility] ([facility]) [address] [place] [address] SEDIMENTATION RATEon 023 SEDIMENTATION RATE, ERYTHROCYTE 13 mm/hr Normal <=20 [facility] Comment on above: Performed By: #### L [id number] #### [facility] ([facility]) [address] [place] [address] TISSUE TRANSGLUTAMINASE, IGA on 05-31-2023 TISSUE TRANSGLUTAMINASE, IGA <2 Normal 0-3 [facility] Comment on above: Result Comment: INTE RPRETIVE [...] positive predictive value for disease. Performed By: [employer] [address] [place] [address] Service Officer: Moisés Moreau MD, PhD Performed By: #### L [id number] #### [facility] ([facility]) [address] [place] [address] Refillon 05-27-2023 Refill [id number] Darrian Leal en 1970 F Date Provider Department Center 05/27/2023 GIANA JAMES [facility] PSYCH Gerardo Heal No family history on file Reason for Visit and Comments: Med Refill [[id number]] Normal [facility] Telemedici neon 05-22-2023 [facility] Telemedicine [id number] Darrian Lealen 1970 F Date Provider Department Center 05/22/2023 22458-TGFZRADHA CASTREJON [facility] BH Gerardo Heal No family history on file Reason for Visit and Comments: Anxiety [9] Pain [136] Normal [facility] Orders Onlyon 05-18-2023 Orders Only [id number] Darrian Leal en 1970 F Date Provider Department Center 05/18/2023 GIANA JAMES [facility] PSYCH Gerardo Heal No family history on file Normal [facility] Telemedici neon 05-17-2023 [facility] [id number] Darrian Lealen 1970 Date Provider Department Center 05/17/2023 167-GIANA MORALES [facility] PSYCH Gerardo Heal No family history on file Level of Service:98460 [place] OFFICE/OUTPATIENT ESTABLISHED MOD MDM 30-39 MIN Reason for Visit and Comments: Telehealth Audio/video Visit [871] Normal [facility] Telemedicine [id number] [place] Lealisten 1970 Date Provider Department [place] 05/17/2023 [id number]-MJMLRADHA CASTREJON [facility] BH Gerardo Heal No family history on file Reason for Visit and Comments: Anxiety [9] MDD (Major Depressive Disorder) [401] Normal [facility] Telemedici neon 04-17-2023 [facility] Tele[facility] [id number] ElvisMary 1970 Provider Department [place] 04/17/2023 [facility] Gerardo [facility] No family history on file Reason for Visit and Comments: Therapy [849] Telehealth Audio/video Visit [871] - Via [employer] [facility] Documentationon 04-14-2023 Documentation [id number] ElvisDarrian jonathan 1970 Provider Department [place] 04/14/2023 [facility] Gerardo [facility] No family history on file Reason for Visit and Comments: Transfer summary [Other] - Transferring therapy services [facility] Telemedici neon 04-10-2023 [facility] [id number] ElvisMary 1970 Date Provider Department [place] 04/10/2023 [facility] Gerardo Yrn No family history on file Reason for Visit and Comments: Therapy [849] Normal [facility] CBC AUTO DIFFon 04-05-2023 BASO # 0.0 103/ul Normal 0.0-0.[address] [facility] Comment on above: Performed By: #### L ACT #### [facility] [address] [place] [address] Dr. Mirian Velasco Basophils/100 WBC (Bld) 0.8 % Normal 0.2-2.0 [facility] Comment on above: Performed By: #### L ACT #### [facility] [address] [place] [address] Dr. Mirian Velasco EO # 0.1 103/ul Normal 0.0-0.[address] [facility] Comment on above: Performed By: #### L ACT #### [facility] [address] [place] [address] Dr. Mirian Velasco Eosinophils/100 WBC (Bld) 1.1 % Normal 0.9-7.0 [facility] Comment on above: Performed By: #### L ACT #### [facility] [address] [place] [address] Dr. Mirian Velasco Erythrocyte distribution width (RBC) [Ratio] 13.1 % Normal 11.0-15.0 [facility] Comment on above: Performed By: #### L ACT #### [facility] [address] [place] [address] Dr. Mirian Velasco Hematocrit (Bld) [Volume fraction] 37.6 % Normal 36.0-48.0 [facility] Comment on above: Performed By: #### L ACT #### [facility] [address] [place] [address] Dr. Mirian Velasco Hemoglobin (Bld) [Mass/Vol] 12.4 g/dL Normal 12.0-16.0 [facility] Comment on above: Performed By: #### L ACT #### [facility] [address] [place] [address] Dr. Mirian Velasco IG # 0.01 10e3/ul Normal 0.00-0.[address] [facility] Comment on above: Performed By: #### L ACT #### [facility] [address] [place] [address] Dr. Mirian Velasco IG % 0.2 % Normal 0.0-0.[address] [facility] Comment on above: Performed By: #### L ACT #### [facility] [address] [place] [address] Dr. Mirian Velasco LYMPH # 2.5 103/ul Normal 1.2-3.8 [facility] Comment on above: Performed By: #### L ACT #### [facility] [address] [place] [address] Dr. Mirian Velasco Lymphocytes/100 WBC (Bld) 46.2 % Normal 20.5-60.0 [facility] Comment on above: Performed By: #### L ACT #### [facility] [address] [place] [address] Dr. Mirian Velasco MANUAL DIFF REQ NO Normal [facility] Comment on above: Performed By: #### L ACT #### [facility] [address] [place] [address] Dr. Mirian Velasco MCH (RBC) [Entitic mass] 27.1 pg Normal 26.7-34.0 [facility] Comment on above: Performed By: #### L ACT #### [facility] [address] [place] [address] Dr. Mirian Velasco MCHC (RBC) [Mass/Vol] 33.0 g/dL Normal 29.9-35.[address] [facility] Comment on above: Performed By: #### L ACT #### [facility] [address] [place] [address] Dr. Mirian Velasco MCV (RBC) [Entitic vol] 82.3 fL Normal 81.0-99.0 [facility] Comment on above: Performed By: #### L ACT #### [facility] [address] [place] [address] Dr. Mirian Velasco MONO # 0.4 103/ul Normal 0.3-0.[address] [facility] Comment on above: Performed By: #### L ACT #### [facility] [address] [place] [address] Dr. Mirian Velasco Monocytes/100 WBC (Bld) 7.9 % Normal 1.7-12.0 [facility] Comment on above: Performed By: #### L ACT #### [facility] [address] [place] [address] Dr. Mirian Velasco NEUT # 2.3 103/ul Normal 1.4-6.5 [facility] Comment on above: Performed By: #### L ACT #### [facility] [address] [place] [address] [address] Mirian Velasco Neutrophils/100 WBC (Bld) 43.8 % Normal 43.0-75.0 [facility] Comment on above: Performed By: #### L ACT #### [facility] [address] [place] [address] [address] Mirian Velasco Platelet mean volume (Bld) [Entitic vol] 9.2 fL Critically low 9.5-13.5 [facility] Comment on above: Performed By: #### L ACT #### [facility] [address] [place] [address] [address] Mirian Velasco PLT 318 103/ul Normal 150-450 [facility] Comment on above: Performed By: #### L ACT #### [facility] [address] [place] [address] [address] Mirian Velasco RBC 4.57 106/ul Normal 4.20-5.40 [facility] Comment on above: Performed By: #### L ACT #### [facility] [address] [place] [address] [address] Mirian Velasco WBC 5.3 103/ul Normal 4.0-11.0 [facility] Comment on above: Performed By: #### L ACT #### [facility] [address] [place] [address] [address] Mirian Velasco PROF CHEM 8 (BAS METB)on Anion gap [Moles/Vol] 19.0 mmol/L Normal [facility] Comment on above: Performed By: #### H STROPN, BMP ####[facility] [id number] [place] [address]Dr. Mirian Velasco Calcium [Mass/Vol] 9.6 mg/dL Normal 8.5-10.1 [facility] Comment on above: Performed By: #### H STROPN, BMP ####[facility] [id number] [place] [address]Dr. Mirian Velasco Chloride [Moles/Vol] 103 mmol/L Normal 98-107 [facility] Comment on above: Performed By: #### H FAUSTO, BMP ####[facility] [id number] [place] [address]Dr. Mercedesnatalie Velasco CO2 [Moles/Vol] 23.1 mmol/L Normal 21.0-32.0 [facility] Comment on above: Performed By: #### H FAUSTO, BMP ####[facility] [id number] [place] [address]Dr. Mirian Velasco Creatinine [Mass/Vol] 0.84 mg/dL Normal 0.55-1.02 [facility] Comment on above: Performed By: #### H FAUSTO, BMP ####[facility] [id number] [place] [address]Dr. Mirian Velasco EGFR-AF SINGAPOREAN >60 Normal >=60 [facility] Comment on above: Performed By: #### H FAUSTO, BMP ####[facility] [id number] [place] [address]Dr. Mirian Velasco EGFR-NON AF [place]OREAN >60 Normal >=60 [facility] Comment on above: Performed By: #### H FAUSTO, BMP ####[facility] [id number] [place], [place] [address]Dr. Mirian Velasco Glucose [Mass/Vol] 129 mg/dL Critically high 74-106 [facility] Comment on above: Performed By: #### H FAUSTO, BMP ####[facility] [id number] [place] [address]Dr. Mirian Velasco Potassium [Moles/Vol] 3.1 mmol/L Critically low 3.5-5.1 [facility] Comment on above: Performed By: #### H FAUSTO, BMP ####[facility] [id number] [place] [address]Dr. Mirian Velasco Sodium [Moles/Vol] 142 mmol/L Normal 136-145 [facility] [facility] Comment on above: Performed By: #### H FAUSTO, BMP ####[facility] [id number] [place] [address]Dr. Mirian Velasco Urea nitrogen [Mass/Vol] 12.0 mg/dL Normal 7.0-18.0 [facility] Comment on above: Performed By: #### H FAUSTO, BMP ####[facility] [id number] [place], [place] [address]Ot. Mirian Velasco Urea nitrogen/Creatinine [Mass ratio] 14.3 mg/mg Normal [facility] Comment on above: Performed By: #### H FAUSTO, BMP ####[facility] [id number] [place], [place] [address]Nm. Mirian Velasco TROPONIN, HIGH SENSITIVITYon 04-05-2023 HSTROP 5.6 pg/mL Normal 4.0-51.[address] [facility] Comment on above: Result Comment: CUT- OFF POINTS HAVE BEEN ESTABLISHED BASED ON THE FOURTH UNIVERSAL DEFINITIONS OF MYOCARDIAL INFARCTION. THE UPPER REFERENCE LIMIT (URL) OF TROPONIN, DEFINED THE 99TH PERCENTILE OF cTnI DISTRIBUTION IN A REFERENCE POPULATION, HAS BEEN CONFIRMED THE DECISION THRESHOLD FOR VA DIAGNOSIS. Performed By: #### H FAUSTO, BMP ####[facility] [id number] [place] [id number]. Mirian Velasco Refillon 03-21-2023 Refill [id number] Darrian Leal 1970 Date Provider Department Center 03/21/2023 GIANA JAMES [facility] PSYCH Gerardo Heal No family history on file Reason for Visit and Comments: Med Refill [[id number]] Normal [facility] Telemedici neon 03-20-2023 [facility] Telemedicine [id number] Mary Leal 1970 Date Provider Department Center 03/20/2023 3941-[facility]EN [facility]OR[facility] Gerardo Heal No family history on file Reason for Visit and Comments: Therapy [849] Normal [facility] FAT, FECAL QUALon 03-16-2023 FAT, FECAL - NEUTRAL Normal Normal Normal [facility] Comment on above: Order Comment: Speci men Type: STOOL SPECIMENOrdering Facility: [facility] Address: [address] [place] [address] [place] [address] Performed By: #### F FATQL ####[facility]IES[facility] [id number] [place] [address] FAT, FECAL - SPLIT Normal Normal Normal [facility] Comment on above: Order Comment: Speci men Type: STOOL SPECIMENOrdering Facility: [facility] Address: [place] [address] Result Comment: INTE RPRETIVE INFORMATION: Fecal Fat Qualitative Neutral fats include the monoglycerides, diglycerides, and triglycerides while split fats are the free fatty acids that are liberated from them. Impaired synthesis or secretion of pancreatic enzymes or bile may cause an increase in neutral fats while an increase in split fats suggests impaired absorption of nutrients. Performed By: [employer] [address] [place] [address] Service Officer: Moisés Moreau MD, PhD Performed By: #### F FATQL ####[facility]IESCLIA [id number] [place] [address] Behavioral Health Telemedici bonneau 03-06-2023 [facility] Tele[facility]icine [id number] Mary Leal 1970 F Date Provider Department [place] 03/06/2023 [facility] Gerardo Heal No family history on file Reason for Visit and Comments: Therapy [849] Normal [facility] CBC AUTO DIFFon 03-06-2023 BASO # 0.1 103/ul Normal 0.0-0.1 [facility] Comment on above: Performed By: #### L ACT #### [facility] Laboratory [address] [place] [address] Dr. Mirian Velasco Basophils/100 WBC (Bld) 0.8 % Normal 0.2-2.0 [facility] Comment on above: Performed By: #### L ACT #### [facility] Laboratory [address] [address] [address] Mirian Velasco EO # 0.1 103/ul Normal 0.0-0.7 [facility] Comment on above: Performed By: #### L ACT #### [facility] Laboratory [address] [address] [address] Mirian Velasco Eosinophils/100 WBC (Bld) 1.4 % Normal 0.9-7.0 [facility] Comment on above: Performed By: #### L ACT #### [facility] Laboratory [address] [place] [address] Dr. Mirian Velasco Erythrocyte distribution width (RBC) [Ratio] 13.1 % Normal 11.0-15.0 [facility] Comment on above: Performed By: #### L ACT #### [facility] Laboratory [address] [place] [address] Dr. Mirian Velasco Hematocrit (Bld) [Volume fraction] 37.9 % Normal 36.0-48.0 [facility] Comment on above: Performed By: #### L ACT #### [facility] [address] [place] [address] Dr. Mirian Velasco Hemoglobin (Bld) [Mass/Vol] 12.7 g/dL Normal 12.0-16.0 [facility] Comment on above: Performed By: #### L ACT #### [facility] [address] [place] [address] Dr. Mirian Velasco IG # 0.01 10e3/ul Normal 0.00-0.03 [facility] Comment on above: Performed By: #### L ACT #### [facility] [address] [place] [address] Dr. Mirian Velasco IG % 0.2 % Normal 0.0-0.5 [facility] Comment on above: Performed By: #### L ACT #### [facility] [address] [place] [address] Dr. Mirian Velasco LYMPH # 1.8 103/ul Normal 1.2-3.8 [facility] Comment on above: Performed By: #### L ACT #### [facility] [address] [place] [address] Dr. Mirian Velasco Lymphocytes/100 WBC (Bld) 27.2 % Normal 20.5-60.0 [facility] Comment on above: Performed By: #### L ACT #### [facility] [address] [place] [address] Dr. Mirian Velasco MANUAL DIFF REQ NO Normal [facility] Comment on above: Performed By: #### L ACT #### [facility] [address] [address] [address] Mirian Velasco MCH (RBC) [Entitic mass] 27.5 pg Normal 26.7-34.0 [facility] Comment on above: Performed By: #### L ACT #### [facility] [address] [address] [address] Mirian Velasco MCHC (RBC) [Mass/Vol] 33.5 g/dL Normal 29.9-35.[address] [facility] Comment on above: Performed By: #### L ACT #### [facility] [address] [address] [address] Mirian Velasco MCV (RBC) [Entitic vol] 82.0 fL Normal 81.0-99.0 [facility] Comment on above: Performed By: #### L ACT #### [facility] [address] [place] [address] Dr. Mirian Velasco MONO # 0.4 103/ul Normal 0.3-0.[address] [facility] Comment on above: Performed By: #### L ACT #### [facility] [address] [address] [address] Mirian Velasco Monocytes/100 WBC (Bld) 5.5 % Normal 1.7-12.0 [facility] Comment on above: Performed By: #### L ACT #### [facility] [address] [place] [address] Dr. Mirian Velasco NEUT # 4.3 103/ul Normal 1.4-6.[address] [facility] Comment on above: Performed By: #### L ACT #### [facility] [address] [place] [address] Dr. Mirian Velasco Neutrophils/100 WBC (Bld) 64.9 % Normal 43.0-75.[address] [facility] Comment on above: Performed By: #### L ACT #### [facility] [address] [place] [address] Dr. Mirian Velasco Platelet mean volume (Bld) [Entitic vol] 9.4 fL Critically low 9.5-13.[address] [facility] Comment on above: Performed By: #### L ACT #### [facility] [address] [address] [address] Mirian Velasco PLT 317 103/ul Normal 150-450 [facility] Comment on above: Performed By: #### L ACT #### [facility] [address] [address] [address] Mirian Velasco RBC 4.62 106/ul Normal 4.20-5.[address] [facility] Comment on above: Performed By: #### L ACT #### [facility] [address] [address] [address] Mirian Velasco WBC 6.6 103/ul Normal 4.0-11.0 [facility] Comment on above: Performed By: #### L ACT #### [facility] [address] [address] [address] Mirian Velasco CULTURE BLOODon 03-06-2023 Microscopic examination of blood, culture Culture Observations: NO GROWTH AT [address] [facility] Comment on above: Performed By: #### B LDCX2 ####[facility] [id number] [place] [address]Dr. Mirian Velasco Microscopic examination of blood, culture Culture Observations: NO GROWTH AT 5 DAYS. Normal [facility] Comment on above: Performed By: #### B LDCX1 #### [facility] [address] [address] [address] Mirian Velasco LACTATE/LACTIC ACIDon 2022 Lactate [Moles/Vol] 2.2 mmol/L Critically high 0.4-2.0 [facility] Comment on above: Performed By: #### L ACT #### [facility] [address] [address] [address] Mirian Velasco LIPASEon 03-06-2023 Lipase [Catalytic activity/Vol] 53.0 U/L Critically low 73.0-393.0 [facility] Comment on above: Performed By: #### L ACT #### [facility] [address] [address] [address] Mirian Velasco PROF 14(COMP METB)on 023 Albumin [Mass/Vol] 3.4 g/dL Normal 3.4-5.0 [facility] Comment on above: Performed By: #### L ACT #### [facility] [address] [place] [address] Dr. Mirian Velasco Albumin/Globulin [Mass ratio] 1.0 {ratio} Normal [facility] Comment on above: Performed By: #### L ACT #### [facility] [address] [address] [address] Mirian Velasco ALP [Catalytic activity/Vol] 123 U/L Critically high 46-116 [facility] Comment on above: Performed By: #### L ACT #### [facility] [address] [place] [address] Dr. Mirian Velasco ALT [Catalytic activity/Vol] 33 U/L Normal 14-59 [facility] Comment on above: Performed By: #### L ACT #### [facility] [address] [place] [address] Dr. Mirian Velasco Anion gap [Moles/Vol] 13.1 mmol/L Normal [facility] Comment on above: Performed By: #### L ACT #### [facility] [address] [place] [address] Dr. Mirian Velasco AST [Catalytic activity/Vol] 31 U/L Normal 15-37 [facility] Comment on above: Performed By: #### L ACT #### [facility] [address] [place] [address] Dr. Mirian Velasco Bilirubin [Mass/Vol] 0.3 mg/dL Normal 0.2-1.0 [facility] Comment on above: Performed By: #### L ACT #### [facility] [address] [place] [address] Dr. Mirian Velasco Calcium [Mass/Vol] 8.9 mg/dL Normal 8.5-10.1 [facility] Comment on above: Performed By: #### L ACT #### [facility] [address] [place] [address] Dr. Mirian Velasco Chloride [Moles/Vol] 107 mmol/L Normal 98-107 [facility] Comment on above: Performed By: #### L ACT #### [facility] [address] [address] [address] Mirian Velasco CO2 [Moles/Vol] 25.6 mmol/L Normal 21.0-32.0 [facility] Comment on above: Performed By: #### L ACT #### [facility] [address] [address] [address] Mirian Velasco Creatinine [Mass/Vol] 0.70 mg/dL Normal 0.55-1.02 [facility] Comment on above: Performed By: #### L ACT #### [facility] [address] [address] [address] Mirian Velasco EGFR-AF SINGAPOREAN >60 Normal >=60 [facility] Comment on above: Performed By: #### L ACT #### [facility] [address] [address] [address] Mirian Velasco EGFR-NON AF SINGAPOREAN >60 Normal >=60 [facility] Comment on above: Performed By: #### L ACT #### [facility] [address] [address] [address] Mirian Velasco Globulin (S) [Mass/Vol] 3.4 g/dL Normal [facility] Comment on above: Performed By: #### L ACT #### [facility] [address] [address] [address] Mirian Velasco Glucose [Mass/Vol] 125 mg/dL Critically high 74-106 [facility] Comment on above: Performed By: #### L ACT #### [facility] [address] [address] [address] Mirian Velasco Potassium [Moles/Vol] 3.7 mmol/L Normal 3.5-5.1 [facility] Comment on above: Performed By: #### L ACT #### [facility] [address] [address] [address] Mirian Velasco Protein [Mass/Vol] 6.8 g/dL Normal 6.4-8.2 [facility] Comment on above: Performed By: #### L ACT #### [facility] [address] [address] [address] Mirian Velasco Sodium [Moles/Vol] 142 mmol/L Normal 136-145 [facility] Comment on above: Performed By: #### L ACT #### [facility] [address] [address] [address] Mirian Velasco Urea nitrogen [Mass/Vol] 16.0 mg/dL Normal 7.0-18.0 [facility] Comment on above: Performed By: #### L ACT #### [facility] [address] [address] [address] Mirian Velasco Urea nitrogen/Creatinine [Mass ratio] 22.9 mg/mg Normal [facility] Comment on above: Performed By: #### L ACT #### [facility] [address] [place] [address] Dr. Mirian Velasco PROTIMEon 03-06-2023 INR Coag (PPP) [Relative time] {INR} Normal [facility] Comment on above: Performed By: #### P T #### [facility] [address] [address] [address] Mirian Velasco INR GUIDELINES SEE BELOW Normal [facility] Comment on above: Result Comment: SAMEER RED INR: 2.0 - 3.0 CONDITIONS NOT LISTED BELOW 2.5 - 3.5 FOR PROSTHETIC HEART VALVE REPLACEMENT 2.5 - 3.5 RECURRENT THROMBOSIS Performed By: #### P T #### [facility] [address] [place] [address] Dr. Mirian Velasco PT Coag (PPP) [Time] 9.8 s Normal 9.0-11.6 [facility] Comment on above: Performed By: #### P T #### [facility] [address] [place] [address] Dr. Mirian Velasco TROPONIN, HIGH SENSITIVITYon 03-06-2023 HSTROP 4.4 pg/mL Normal 4.0-51.3 [facility] Comment on above: Result Comment: CUT- OFF POINTS HAVE BEEN ESTABLISHED BASED ON THE FOURTH UNIVERSAL DEFINITIONS OF MYOCARDIAL INFARCTION. THE UPPER REFERENCE LIMIT (URL) OF TROPONIN, DEFINED THE 99TH PERCENTILE OF cTnI DISTRIBUTION IN A REFERENCE POPULATION, HAS BEEN CONFIRMED THE DECISION THRESHOLD FOR VA DIAGNOSIS. Performed By: #### L ACT #### [facility] [address] [address] [address] Mirian Velasco Bacteria identified Aer cx N om (Unsp spec)Ordered By: Niecy Duron on 03-02-2023 Superficial Wound Culture Methicillin Resis Staph Aureus [facility] Superficial Wound Cultureon 03-02-2023 Superficial Wound [...] RESISTANT TO ALL B-LACTAM DRUGS. PERFORMED BY: [place] [address] PATHOLOGIST DREDGE ENGINEER LEVAR CASE M.D. [facility] Comment on above: Performed By: #### [facility] #### [address] Clinical Supporton 3 Clinical Support [id number] Darrian Leal 1970 F Date Provider Department Center 02/27/2023 Keith1-[facility] Gerardo Heal No family history on file Reason for Visit and Comments: Therapy [849] Normal [facility] 36on 02-20-2023 36 I just sent the scri pt over and signed her note. Normal [facility] Behavioral Health Telemedici neon 02-20-2023 Behavioral Health Telemedicine [id number] Mary Leal 1970 F Date Provider Department Center 02/20/2023 3941-CARMEN DORSEY [facility] BH Gerardo Heal No family history on file Reason for Visit and Comments: Therapy [849] Normal [facility] CT LSPINE WO CONon 3 CT LSPINE [...] by: NANCY BELLE Date: 2023-02-19 06:42 Normal [facility] 36on 02-17-2023 36 Roof Assembler spoke with rigoberto montemayor in regards to lunesta, patient reports Giana was increasing the lunesta to 3mg, comic writer read last note plan reports 2mg lunesta. Roof Assembler will attempt to contact Giana Morales. Roof Assembler is covering while Giana is out of the clinic. Normal [facility] 36 Patient needs Lunest a sent to [facility] [place]. Had an appt yesterday with you, and pharmacy does not have. Normal [facility] Telephoneon 02-17-2023 Telephone [id number] Darrian Leal 1970 F Date Provider Department Center 02/17/2023 GIANA JAMES [facility] PSYCH Gerardo Heal No family history on file Reason for Visit and Comments: Medication Question [827] - Pt is upset that her Lunesta has not been increased as discussed. Normal [facility] Telephone [id number] Darrian Leal 1970 Date Provider Department Center 02/17/2023 PONCE MCKEON [facility] PSYCH Gerardo Heal No family history on file [facility] Behavioral Health Telemedici neon 02-16-2023 Behavioral Health Telemedicine [id number] Denver Lealisten 1970 Date Provider Department Center 02/16/2023 GIANA JAMES [facility] PSYCH Gerardo Heal No family history on file Level of Service:74099 [place] OFFICE/OUTPATIENT ESTABLISHED MOD MDM 30-39 MIN Reason for Visit and Comments: Telehealth Audio/video Visit [871] - @Rumble [facility] Behavioral Health Telemedici neon 02-13-2023 Behavioral Health Telemedicine [id number] Darrian Lealen 1970 Date Provider Department Center 02/13/2023 [facility] Gerardo Heal No family history on file Reason for Visit and Comments: Therapy [849] - Normal [facility] Behavioral Health Telemedici neon 02-06-2023 Behavioral Health Telemedicine [id number] [place] Lealisten 1970 Date Provider Department Center 02/06/2023 [facility] Gerardo Heal No family history on file Reason for Visit and Comments: Therapy [849] [facility] Behavioral Health Telemedici neon 02-02-2023 Behavioral Health Telemedicine [id number] Darrian Lealen 1970 Date Provider Department Center 02/02/2023 GIANA JAMES [facility] PSYCH Gerardo Heal No family history on file Level of Service:23805 [place] OFFICE/OUTPATIENT ESTABLISHED MOD MDM 30-39 MIN Reason for Visit and Comments: Telehealth Audio/video Visit [871] - @[employer] Behavioral Health Telemedici neon 01-23-2023 Behavioral Health Telemedicine [id number] [place] Lealisten 1970 Date Provider Department Center 01/23/2023 [facility] Gerardo Heal No family history on file Reason for Visit and Comments: Therapy [849] [facility] 36on 01-16-2023 36 Spoke with pt to raymond mcgill her appointment this morning was cancelled per her request. Pt stated she wasn't feeling well. Her next appointment is scheduled for 01/23/23. [facility] 36 Patient called and w ants a return call from provider. [facility] Hussain 01-16-2023 CNPN Telephone ([place]) ----- MARY LEAL ([id number]) 1970 F Date Time Provider Department 01/16/23 MOUNIKA HERNANDEZ During your visit today, we recorded the following information about you: Mounika Hernandez PA-C 01/16/2023 1:09 PM Signed Patient was scheduled for virtual PACC appt at 1300 today. Patient did not check in for visit. Called patient at [phone] to see if they needed any assistance [...] the AM and 4 mg PM - asdbhwekqsq-hxjfaadeo-skg anter (TRELEGY ELLIPTA) 100-62.5-25 mcg Inhale 1 [...] Status:Closed by MOUNIKA HERNANDEZ on 01/16/23 [facility] HISTORY PHYSICALon HISTORY PHYSICAL HNO ID: [id number] Author: Mounika Hernandez PA-C Service: ? Author Type: Physician Crystallographer Type: HANDP Filed: 01/16/2023 1:24 PM Note Text: This is a virtual visit using Verifico video visit. It required patient-provider interaction for the medical decision making as documented below. I have communicated my name and active licensure. The patient's identity and physical location were verified at the time of this visit. Either the patient or their legal claim service representative has been informed of the risks and benefits of and alternatives to treatment through a remote evaluation and consents to proceed with the evaluation remotely. Surgeon: Winston Hannah DO Type of surgery: GEN SURG: POP Patient scheduled for surgery on 02/08/23 . Surgery Location: [facility] Diagnosis: Preop examination (primary encounter diagnosis) [...] in the AM and 4 mg PM qaubbgqkpgg-fgqvjnzpn-cyr anter (TRELEGY ELLIPTA) 100-62.5-25 mcg Inhale 1 [...] PA-C January 16, 2023 12:36 PM [facility] Telephoneon 01-16-2023 Telephone [id number] Darrian Leal en 1970 Date Provider Department Center 01/16/2023 [facility] Gerardo Heal No family history on file Reason for Visit and Comments: Appointment [375] Normal [facility] Telephone [id number] Darrian Leal en 1970 Date Provider Department Center 01/16/2023 [facility] Gerardo Heal No family history on file Normal [facility] Hussain 01-11-2023 KWESIN Telephone (Bee Resilient) ----- MARY LEAL ([id number]) 1970 F Date Time Provider Department 01/11/23 WINSTON HANNAH During your visit today, we recorded the following information about you: Berta Ann RN 01/11/2023 10:08 AM Signed Procedure pended for 02/08/23. Pt aware of need for PACC. Pre-op instructions reviewed, will send to pt's [facility], per pt request. Post op appt scheduled. No other questions at this time. eBrta HENSON, RN Specialty Certified Health 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 Allergies As of Date: 01/11/2023 Noted Allergy Reaction RISPERIDONE 07/27/2021 5 - Intolerance Comments: Breast discharge Date Reviewed: 12/15/2022 Reviewed by: Mary Obrien MD - Fully Assessed Reason for Visit: Schedule Procedure [Other] Primary Visit Diagnosis:Gastroparesis [K31.84] Order(s):EGD - THERAPEUTIC, EUS, OR TUBE INTERVENTIONS [GI2] Order #: [id number] FUTURE Prescriptions as of 01/11/2023 - sucralfate [...] the AM and 4 mg PM - tyactxqiusd-ixtpmyscv-rnz anter (TRELEGY ELLIPTA) 100-62.5-25 mcg Inhale 1 [...] Status:Closed by WINSTON HANNAH on 01/11/23 [facility] Refillon 01-11-2023 Refill [id number] Darrian Leal 1970 F Date Provider Department Center 01/11/2023 Karli-GIANA MORALES [facility] PSYCH Gerardo Heal No family history on file Reason for Visit and Comments: Med Refill [[id number]] Normal [facility] Behavioral Health Telemedici neon 01-06-2023 Behavioral Health Telemedicine [id number] Mary Leal 1970 F Date Provider Department Center 01/06/2023 ANNETTE BRYAN [facility] No family history on file Level of Service:79850 [place] OFFICE/OUTPATIENT ESTABLISHED LOW MDM 20-29 MIN Reason for Visit and Comments: Telehealth Audio/video Visit [871] [facility] Refillon 01-03-2023 Refill [id number] Darrian Leal 1970 F Date Provider Department Center 01/03/2023 ANNETTE BRYAN [facility] Gerardo Heal No family history on file Reason for Visit and Comments: Med Refill [[id number]] [facility] Behavioral Health Telemedici neon 01-02-2023 Behavioral Health Telemedicine [id number] Mary Leal 1970 Date Provider Department [place] 01/02/2023 [facility] No family history on file Reason for Visit and Comments: Therapy [849] Telehealth Audio/video Visit [871] - WebEx [facility] XR ESOPHAGRAMon 12-26-2022 XR ESOPHAGRAM [...] the procedure. IMPRESSION: SMALL VOLUME GASTROESOPHAGEAL REFLUX. Fur Coat Sewer: CAPRI Transcribe Date/Time: Dec 26 2022 3:20P Dictated by : MERISSA AGARWAL, DO This examination was interpreted and the report reviewed and electronically signed by: TARIQ MILLER MD on Dec 26 2022 3:25PM EST [id number] [facility] Behavioral Health Telemedici neon 12-12-2022 Behavioral Health Telemedicine [id number] Mary Leal 1970 Date Provider Department Center 12/12/2022 [facility] Gerardo Heal No family history on file Reason for Visit and Comments: Therapy [849] Normal [facility] Behavioral Health Telemedici neon 12-09-2022 Behavioral Health Telemedicine [id number] Mary Leal 1970 Date Provider Department Center 12/09/2022 ANNETTE BRYAN [facility] Gerardo Heal No family history on file Level of Service:44776 [place] OFFICE/OUTPATIENT ESTABLISHED MOD [facility] 30-39 MIN Reason for Visit and Comments: Telehealth Audio/video Visit [871] - [email or web address] Normal [facility] Hussain 12-09-2022 CNPN Telephone ([facility]) ----- MARY LEAL ([id number]) 1970 F Date Time Provider Department 12/09/22 MARY OBRIEN [facility] During your visit today, we recorded the following information about you: Madyson Villanueva Pss 12/09/2022 3:23 PM Signed Patient called and left message regarding post operative 03/2022 total laparoscopic colectomy and concerns regarding symptoms and follow up testing return call to [phone] See Wong RN 12/12/2022 9:[address] Obrien sent my chart message to respond to this phone encounter and previous my chart message. Allergies As of Date: 12/09/2022 Noted Allergy Reaction RISPERIDONE 07/27/2021 5 - Intolerance Comments: Breast discharge Date Reviewed: 12/07/2022 Reviewed by: Marley Mitchell RN - Fully Assessed Reason for Visit: Patient Question [6582] Prescriptions as of 12/12/2022 - sucralfate (CARAFATE) [...] the AM and 4 mg PM - pgsimajswpm-tlxbiyvwm-iwd anter (TRELEGY ELLIPTA) 100-62.5-25 mcg Inhale 1 [...] Encounter Status:Closed by SEE WONG on 12/12/22 [facility] 12-08-2022 CNPN Telephone ([facility]) ----- MARY LEAL ([id number]) 1970 F Date Time Provider Department 12/08/22 [...] patient Summary: As noted Concerns: Procedure results Certified Health 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 plan for next outreach: Will follow up [...] the AM and 4 mg PM - jlbtesjfvte-ocejnqstm-kdg anter (TRELEGY ELLIPTA) 100-62.5-25 mcg Inhale 1 [...] Status:Closed by NELSY PEPE on 01/25/23 [facility] NURSING PROGon 12-08-2022 NURSING PROG HNO ID: [id number] Author: Lisa Contreras RN Service: Nursing Author Type: Registered Nurse Type: Nursing Progress Note Filed: 12/08/2022 11:28 AM Note Text: [facility] POST PROCEDURE FOLLOW UP CALL [phone] (home) Date Phone Call Made: 12/08/2022 Attempt: [...] to make your experience more pleasant? No [facility] ANES POSTPROC EVALon 023 ANES POSTPROC EVAL HNO ID: [id number] Author: Andres Sheets DO Service: Anesthesiology Author Type: Anesthesiologist Type: Anesthesia Postprocedure Evaluation Filed: 12/07/2022 12:44 PM Note Text: POST ANESTHESIA EVALUATION NOTE : 1970 Procedure Summary Date: 12/07/22 Room / Location: [facility] Anesthesia Start: 1034 Anesthesia Stop: 1055 Procedures: [...] SIGNATURE: Andres Sheets DO PATIENT NAME: Mary eLal DATE: December 07, 2022 TIME: 12:44 PM CSN: [id number] [facility] ANES PRE-OPon 12-07-2022 ANES PRE-OP HNO ID: [id number] Author: Andres Sheets DO Service: Anesthesiology Author Type: Anesthesiologist Type: Anesthesia Preprocedure Evaluation Filed: 12/07/2022 9:42 AM Note Text: ANESTHESIOLOGY DAY OF SURGERY NOTE : 1970 Procedure Information Date/Time: 12/07/22 1030 Scheduled providers: Winston Hannah DO Procedures: EGD - THERAPEUTIC, EUS, OR TUBE INTERVENTIONS PH MONTIEL INSERT OFF MEDS Location: [facility] Estimated body mass index is 24.55 kg/m? [...] BP 109/74 12/07/22 0920 Pulse 91 12/07/22 09 Resp 16 12/07/22 0920 Temp 36 ?C (96.8 ?F) 12/07/22 09 SpO2 98 % 12/07/22 09 Outpatient Medications as of 12/07/2022 Medication Sig [...] the AM and 4 mg PM - jzwedkhitiv-vqisjghjf-hee anter (TRELEGY ELLIPTA) 100-62.5-25 mcg Inhale 1 [...] December 07, 2022 TIME: 9:40 AM CSN: [id number] [facility] HISTORY PHYSICALon HISTORY PHYSICAL HNO ID: [id number] Author: Soraida Mathis PA-C Service: Gastroenterology Author Type: Physician Crystallographer Type: HANDP Filed: 12/07/2022 9:48 AM Note [...] PAIN, N/V/D Medication reconciliation list reviewed in [facility]. Past medical history, past surgical history, social history and family history reviewed and updated in [facility]. ALLERGIES Allergies: Risperidone Intolerance Comment:Breast discharge SEE [facility] FOR [facility] BP 109/74 Pulse 91 Temp [...] Leal DATE: 12/07/2022 TIME: 9:41 AM Normal [facility] Upper GI endoscopyon 023 Upper GI endoscopy [facility] l Gastrointestinal Endoscopy Patient Name: Mary Leal Procedure [...] by the physician, the nurse and the formula mixer in the pre-procedure area in the endoscopy [...] previously scheduled. Procedure Code(s): --- Professional --- 56324, Esophagogastroduodenoscop y, flexible, transoral; with dilation of gastric/duodenal stricture(s) (eg, balloon, bougie) Diagnosis Code(s): --- Professional --- K21.00, Gastro-esophageal reflux disease with esophagitis, without bleeding K31.84, Gastroparesis CPT copyright 2020 [employer]. All rights reserved. The codes documented in this report are preliminary and upon church history professor review may be revised to meet current compliance requirements. Attending Participation: I personally performed the entire procedure. Scope In: 10:39:12 AM Scope Out: 10:46:13 AM MD Winston Diaz MD 12/07/2022 10 (more content not included)... Normal [facility] ANES POSTPROC EVALon 023 ANES POSTPROC EVAL HNO ID: [id number] Author: Annabel Burton MD Service: Anesthesiology Author Type: Physician Type: Anesthesia Postprocedure Evaluation Filed: 12/05/2022 2:01 PM Note Text: POST ANESTHESIA EVALUATION NOTE : 1970 Procedure Summary Date: 12/05/22 Room / Location: [facility] Anesthesia Start: 900 Anesthesia Stop: 917 Procedure: [...] December 05, 2022 TIME: 2:00 PM CSN: [id number] [facility] ANES PRE-OPon 12-05-2022 ANES PRE-OP HNO ID: [id number] Author: Annabel Burton MD Service: Anesthesiology Author Type: Physician Type: Anesthesia Preprocedure Evaluation Filed: 12/05/2022 8:28 AM Note Text: ANESTHESIOLOGY DAY OF SURGERY NOTE : 1970 Procedure Information Date/Time: 12/05/22 0900 Scheduled providers: Isra Masters DO Procedure: SIGMOIDOSCOPY Location: [facility] Estimated body mass index is 24.55 kg/m? [...] the AM and 4 mg PM - lttnzlbedvq-xkwontcoe-hbh anter (TRELEGY ELLIPTA) 100-62.5-25 mcg Inhale 1 [...] December 05, 2022 TIME: 8:26 AM CSN: [id number] [facility] Flexible Sigmoidoscopyon Flexible sigmoidoscopy [facility] Gastrointestinal Endoscopy Patient Name: Mary Leal Procedure Date: 12/05/2022 8:55 AM Date of : 1970 Admit Type: Outpatient Age: 52 Room: [place] [address] Gender: Female Note Status: Finalized Attending MD: [...] present medications. Procedure Code(s): --- Professional --- 75221, 52, Sigmoidoscopy, flexible; diagnostic, including collection of specimen(s) by brushing or washing, when performed (separate procedure) Diagnosis Code(s): --- Professional --- K59.00, Constipation, unspecified CPT copyright 2020 [employer]. All rights reserved. The codes documented in this report are preliminary and upon church history professor review may be revised to meet current compliance requirements. Attending Participation: I personally performed the entire procedure. Scope In: 9:07:04 AM Scope Out: 9:09:45 AM DO Isra Chen DO 12/05/2022 9:13:05 AM This report has been signed electronically by Isra Masters DO Number of Addenda: 0 Note Initiated On: 12/05/2022 8:55 AM Estimated Blood Loss: Estimated blood loss: none. Normal [facility] HISTORY PHYSICALon HISTORY PHYSICAL HNO ID: [id number] Author: Lashanda Dorado PA-C Service: Gastroenterology Author Type: Physician Crystallographer Type: HANDP Filed: 12/05/2022 8:43 AM Note [...] PAIN, N/V/D Medication reconciliation list reviewed in [facility]. Past medical history, past surgical history, social history and family history reviewed and updated in [facility]. ALLERGIES Allergies: Risperidone Intolerance Comment:Breast discharge SEE [facility] There were no vitals taken [...] Leal DATE: 12/05/2022 TIME: 8:42 AM Normal [facility] NURSING PROGon 12-05-2022 NURSING PROG HNO ID: [id number] Author: Lisa Contreras, RN Service: ? Author Type: Registered Nurse Type: Nursing Progress Note Filed: 12/05/2022 1:07 PM Note Text: [facility] ENDOSCOPY PRE PROCEDURE CALL Akiko. I'm calling from [facility] endoscopy to provide you with the information for your surgery/procedure tomorrow. Spoke to: Patient CONFIRM Procedure Planned with patient:Esophagogastroduo denoscopy(EGD) with or without biopies based on clinical findings, removal of polyps or lesions Are you familiar with where [facility] is located?yes Address [facility] Patient instructed to enter through the main hospital entrance off [address] through the revolving doors and check in at the main desk with your hearse driver's license and insurance card. yes When anesthesia or sedation is being given: Patient instructed you must have an adult hearse driver because you will not be able to work or drive for the rest of the day after your test.yes Can you please confirm the name and relationship of your hearse driver. tbd What is the best number for your hearse driver to be reached at tomorrow for updates? tbd Your hearse driver is allowed to wait here with [...] Do not wear makeup, lotion, or finger albanian. yes Patient instructed: Please bring a list [...] given Any barriers to Patient learning (confusion? Senior Account Clerk needed?): Patient/Patient Woods Warden responded appropriately on phone. If patient needs to reschedule please call: [phone] [facility] phone number: [phone] Type of instruction given: Verbal by telephone contact. [facility] Hussain 12-02-2022 MARIAN Telephone (NIQ) ----- ELVISMARY Zoya ([id number]) 1970 F Date Time Provider Department 12/02/22 YONI TUTTLE During your visit today, we recorded the following information about you: Barber Marie 12/02/2022 8:42 AM Signed SLEEP PHONE Name of caller: Mary Leal Relationship to patient : Self In-state or [id number] patient: In-State Was permission obtained from patient? Yes Patient identified by Name and Date of . ( Maryjonathan Leal, 1970). Yes Reason for Call : Patient said her and Patricia was chatting through my chart and Patricia called her about 5:15 yesterday. Number to return call [phone] Okay to leave a message ? Yes Last office visit 10/14/[address] Tuttle virtual Next office visit 01/13/[address] Tuttle virtual Patricia Benton, RN 12/14/2022 5:19 PM Signed Several attempts to reach pt [facility] sent. Allergies As of Date: [...] the AM and 4 mg PM - enmhezzkffp-ihjtoglcf-hka anter (TRELEGY ELLIPTA) 100-62.5-25 mcg Inhale 1 [...] constipation [K59.04] 03/15/2022 Chronic constipation [K59.09] 03/28/2022 CHUKCIE (obstructive sleep apnea) [G47.33] 11/21/2022 Nausea [R11.0] 11/30/2022 Encounter Status:Closed by PATRICIA BENTON on 12/20/22 [facility] NURSING PROGon 12-02-2022 NURSING PROG HNO ID: [id number] Author: Isra Harman RN Service: ? Author Type: Registered Nurse Type: Nursing Progress Note Filed: 12/02/2022 10:54 AM Note Text: [facility] ENDOSCOPY PRE PROCEDURE CALL Akiko. I'm calling from [facility] endoscopy to provide you with the information for your surgery/procedure tomorrow. Spoke to: Patient CONFIRM Procedure Planned with patient: Are you familiar with where [facility] is located?yes Address [facility] Patient instructed to enter through the main hospital entrance off [address] through the revolving doors and check in at the main desk with your hearse driver's license and insurance card. yes When anesthesia or sedation is being given: Patient instructed you must have an adult hearse driver because you will not be able to work or drive for the rest of the day after your test.yes Can you please confirm the name and relationship of your hearse driver. Rich What is the best number for your hearse driver to be reached at tomorrow for updates? 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 yes Patient instructed: Please bring a list [...] given Any barriers to Patient learning (confusion? Senior Account Clerk needed?): Patient/Patient Woods Warden responded appropriately on phone. If patient needs to reschedule please call: [phone] [facility] phone number: [phone] Type of instruction given: Verbal by telephone contact. Normal [facility] AMYLASEon 10-20-2022 Amylase [Catalytic activity/Vol] 33 U/L Normal 25-115 [facility] Comment on above: Performed By: #### L ACT #### [facility] [address], [place] [address] Dr. Mirian Velasco CBC AUTO DIFFon 10-20-2022 BASO # 0.0 103/ul Normal 0.0-0.1 [facility] Comment on above: Performed By: #### P T #### [facility] [address] [place] [address] Dr. Mirian Velasco Basophils/100 WBC (Bld) 0.2 % Normal 0.2-2.0 [facility] Comment on above: Performed By: #### P T #### [facility] [address] [place] [address] Dr. Mirian Velasco EO # 0.1 103/ul Normal 0.0-0.[address] [facility] Comment on above: Performed By: #### P T #### [facility] [address] [place] [address] Dr. Mirian Velasco Eosinophils/100 WBC (Bld) 0.6 % Critically low 0.9-7.0 [facility] Comment on above: Performed By: #### P T #### [facility] [address] [place] [address] Dr. Mirian Velasco Erythrocyte distribution width (RBC) [Ratio] 13.6 % Normal 11.0-15.0 [facility] Comment on above: Performed By: #### P T #### [facility] [address] [place] [address] Dr. Mirian Velasco Hematocrit (Bld) [Volume fraction] 41.0 % Normal 36.0-48.0 [facility] Comment on above: Performed By: #### P T #### [facility] [address] [place] [address] Dr. Mirian Velasco Hemoglobin (Bld) [Mass/Vol] 13.5 g/dL Normal 12.0-16.0 [facility] Comment on above: Performed By: #### P T #### [facility] [address] [place] [address] Dr. Mirian Velasco IG # 0.06 10e3/ul Critically high 0.00-0.03 [facility] Comment on above: Performed By: #### P T #### [facility] [address] [place] [address] Dr. Mirian Velasco IG % 0.4 % Normal 0.0-0.5 [facility] Comment on above: Performed By: #### P T #### [facility] [address] [place] [address] Dr. Mirian Velasco LYMPH # 2.5 103/ul Normal 1.2-3.[address] [facility] Comment on above: Performed By: #### P T #### [facility] [address] [place] [address] Dr. Mirian Velasco Lymphocytes/100 WBC (Bld) 17.5 % Critically low 20.5-60.0 [facility] Comment on above: Performed By: #### P T #### [facility] [address] [place] [address] Dr. Mirian Velasco MANUAL DIFF REQ NO Normal [facility] Comment on above: Performed By: #### P T #### [facility] [address] [place] [address] Dr. Mirian Velasco MCH (RBC) [Entitic mass] 28.1 pg Normal 26.7-34.0 [facility] Comment on above: Performed By: #### P T #### [facility] [address] [place] [address] Dr. Mirian Velasco MCHC (RBC) [Mass/Vol] 32.9 g/dL Normal 29.9-35.2 [facility] Comment on above: Performed By: #### P T #### [facility] [address] [place] [address] Dr. Mirian Velasco MCV (RBC) [Entitic vol] 85.2 fL Normal 81.0-99.0 [facility] Comment on above: Performed By: #### P T #### [facility] [address] [place] [address] Dr. Mirian Velasco MONO # 0.7 103/ul Normal 0.3-0.[address] [facility] Comment on above: Performed By: #### P T #### [facility] [address] [place] [address] Dr. Mirian Velasco Monocytes/100 WBC (Bld) 4.5 % Normal 1.7-12.[address] [facility] Comment on above: Performed By: #### P T #### [facility] [address] [place] [address] Dr. Mirian Velasco NEUT # 11.0 103/ul Critically high 1.4-6.[address] [facility] Comment on above: Performed By: #### P T #### [facility] [address] [place] [address] Dr. Mirian Velasco Neutrophils/100 WBC (Bld) 76.8 % Critically high 43.0-75.0 [facility] Comment on above: Performed By: #### P T #### [facility] [address] [place] [address] Dr. Mirian Velasco Platelet mean volume (Bld) [Entitic vol] 8.7 fL Critically low 9.5-13.[address] [facility] Comment on above: Performed By: #### P T #### [facility] [address] [place] [address] Dr. Mirian Velasco PLT 390 103/ul Normal 150-[address] [facility] Comment on above: Performed By: #### P T #### [facility] [address] [place] [address] Dr. Mirian Velasco RBC 4.81 106/ul Normal 4.20-5.[address] [facility] Comment on above: Performed By: #### P T #### [facility] [address] [place] [address] Dr. Mirian Velasco WBC 14.3 103/ul Critically high 4.0-11.[address] [facility] Comment on above: Performed By: #### P T #### [facility] [address] [place] [address] ABD/PELV W CONon [...] SALMA AMEZQUITA Date: 2022-10-20 12:[address] [facility] CULTURE BLOODon 10-20-2022 Microscopic examination of blood, culture Culture Observations: NO GROWTH AT 5 DAYS. Normal [facility] Comment on above: Performed By: #### B LDCX2 ####[facility] [id number] [place] [address]Dr. Mirian Velasco Microscopic examination of blood, culture Culture Observations: NO GROWTH AT [address] [facility] Comment on above: Performed By: #### B LDCX1 #### [facility] [address] [place] [address] [address] 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 NO POTENTIAL PATHOGENS SEEN. Normal [facility] Comment on above: Performed By: #### U RCX #### [facility] [address] [place] [address] [address] Mirian Velasco ER URINE PROFILEon 2 Bilirubin Ql (U) Negative Normal NEGATIVE [facility] Comment on above: Performed By: #### P T #### [facility] [address] [place] [address] [address] Mirian Velasco Clarity (U) CLEAR Normal CLEAR [facility] Comment on above: Performed By: #### P T #### [facility] [address] [place] [address] [address] Mirian Velasco Color (U) LT. YELLOW Normal YELLOW [facility] Comment on above: Performed By: #### P T #### [facility] [address] [place] [address] Dr. Mirian Velasco ERUAHD A micrscopic examina tion will be performed if indicated. Normal [facility] Comment on above: Performed By: #### P T #### [facility] [address] [place] [address] Dr. Mirian Velasco Glucose Ql (U) Negative Normal NEGATIVE [facility] Comment on above: Performed By: #### P T #### [facility] [address] [place] [address] Dr. Mirian Velasco Hemoglobin Ql (U) Negative Normal NEGATIVE [facility] Comment on above: Performed By: #### P T #### [facility] [address] [place] [address] Dr. Mirian Velasco Ketones Ql (U) Negative Normal NEGATIVE [facility] Comment on above: Performed By: #### P T #### [facility] [address] [place] [address] Dr. Mirian Velasco LEUKOCYTES SMALL Abnormal NEGATIVE [facility] Comment on above: Performed By: #### P T #### [facility] [address] [place] [address] Dr. Mirian Velasco Nitrite Ql (U) Negative Normal NEGATIVE [facility] Comment on above: Performed By: #### P T #### [facility] [address] [place] [address] [address] Mirian Velasco pH (U) 7.0 [pH] Normal 5-9 [facility] Comment on above: Performed By: #### P T #### [facility] [address] [place] [address] Dr. Mirian Velasco SPEC GRAVITY 1.015 Normal 1.005-<=1. 025 [facility] Comment on above: Performed By: #### P T #### [facility] [address] [place] [address] Dr. Mirian Velasco UA PROTEIN Negative Normal NEGATIVE/ TRACE [facility] Comment on above: Performed By: #### P T #### [facility] [address] [place] [address] Dr. Mirian Velasco UR MICRO IND INDICATED Normal [facility] Comment on above: Performed By: #### P T #### [facility] [address] [place] [address] Dr. Mirian Velasco Urobilinogen Qn (U) 0.2 {Lyubov'U}/dL Normal 0.2 - 1. 0 [facility] Comment on above: Performed By: #### P T #### [facility] [address] [place] [address] Dr. Mirian Velasco LACTATE/LACTIC ACIDon 2021 Lactate [Moles/Vol] 1.3 mmol/L Normal 0.4-1.9 [facility] Comment on above: Performed By: #### L ACT #### [facility] [address] [place] [address] Dr. Mirian Velasco LIPASEon 10-20-2022 Lipase [Catalytic activity/Vol] 49.0 U/L Critically low 73.0-393.0 [facility] Comment on above: Performed By: #### P T #### [facility] [address] [place] [address] Dr. Mirian Velasco PROF 14(COMP METB)on 022 Albumin [Mass/Vol] 3.2 g/dL Critically low 3.4-5.0 [facility] Comment on above: Performed By: #### P T #### [facility] [address] [place] [address] Dr. Mirian Velasco Albumin/Globulin [Mass ratio] 0.9 {ratio} Normal [facility] Comment on above: Performed By: #### P T #### [facility] [address] [place] [address] Dr. Mirian Velasco ALP [Catalytic activity/Vol] 129 U/L Critically high 46-116 [facility] Comment on above: Performed By: #### P T #### [facility] [address] [place] [address] Dr. Mirian Velasco ALT [Catalytic activity/Vol] 25 U/L Normal 14-59 [facility] Comment on above: Performed By: #### P T #### [facility] [address] [address] [address] Mirian Velasco Anion gap [Moles/Vol] 10.7 mmol/L Normal [facility] Comment on above: Performed By: #### P T #### [facility] [address] [address] [address] Mirian Velasco AST [Catalytic activity/Vol] 20 U/L Normal 15-37 [facility] Comment on above: Performed By: #### P T #### [facility] [address] [place] [address] Dr. Mirian Velasco Bilirubin [Mass/Vol] 0.5 mg/dL Normal 0.2-1.0 [facility] Comment on above: Performed By: #### P T #### [facility] [address] [place] [address] Dr. Mirian Velasco Calcium [Mass/Vol] 9.2 mg/dL Normal 8.5-10.1 [facility] Comment on above: Performed By: #### P T #### [facility] [address] [place] [address] Dr. Mirian Velasco Chloride [Moles/Vol] 102 mmol/L Normal 98-107 [facility] Comment on above: Performed By: #### P T #### [facility] [address] [address] [address] Mirian Velasco CO2 [Moles/Vol] 30.0 mmol/L Normal 21.0-32.0 [facility] Comment on above: Performed By: #### P T #### [facility] [address] [place] [address] Dr. Mirian Velasco Creatinine [Mass/Vol] 0.68 mg/dL Normal 0.55-1.02 [facility] Comment on above: Performed By: #### P T #### [facility] [address] [address] [address] Mirian Velasco EGFR-AF [place]AN >60 Normal >=60 [facility] Comment on above: Performed By: #### P T #### [facility] [address] [address] [address] Mirian Velasco EGFR-NON AF [place] >60 Normal >=60 [facility] Comment on above: Performed By: #### P T #### [facility] [address] [address] [address] Mirian Velasco Globulin (S) [Mass/Vol] 3.7 g/dL Normal [facility] Comment on above: Performed By: #### P T #### [facility] [address] [address] [address] Mirian Velasco Glucose [Mass/Vol] 109 mg/dL Critically high 74-106 [facility] Comment on above: Performed By: #### P T #### [facility] [address] [address] [address] Mirian Velasco Potassium [Moles/Vol] 3.7 mmol/L Normal 3.5-5.1 [facility] Comment on above: Performed By: #### P T #### [facility] [address] [address] [address] Mirian Velasco Protein [Mass/Vol] 6.9 g/dL Normal 6.4-8.2 [facility] Comment on above: Performed By: #### P T #### [facility] [address] [address] [address] Mirian Velasco Sodium [Moles/Vol] 139 mmol/L Normal 136-145 [facility] Comment on above: Performed By: #### P T #### [facility] [address] [address] [address] Mirian Velasco Urea nitrogen [Mass/Vol] 13.0 mg/dL Normal 7.0-18.0 [facility] Comment on above: Performed By: #### P T #### [facility] [address] [place] [address] Dr. Mirian Velasco Urea nitrogen/Creatinine [Mass ratio] 19.1 mg/mg Normal [facility] Comment on above: Performed By: #### P T #### [facility] [address] [place] [address] Dr. Mirian Velasco URINE MICROSCOPIC ONLYon BACTERIA TRACE Abnormal NONE SEEN [facility] Comment on above: Performed By: #### P T #### [facility] [address] [place] [address] Dr. Mirian Velasco Bacteria identified Cx Nom (U) INDICATED Normal [facility] Comment on above: Performed By: #### P T #### [facility] [address] [place] [address] Dr. Mirian Velasco CAST NONE SEEN Normal NONE SEEN [facility] Comment on above: Performed By: #### P T #### [facility] [address] [place] [address] Dr. Mirian Velasco Crystals LM Nom (Urine sed) NONE SEEN Normal NONE SEEN [facility] Comment on above: Performed By: #### P T #### [facility] [address] [place] [address] Dr. Mirian Velasco Epithelial cells LM Ql (Urine sed) MODERATE Abnormal NONE SEEN /RARE [facility] Comment on above: Performed By: #### P T #### [facility] [address] [place] [address] Dr. Mirian Velasco MUCOUS NONE SEEN Normal NONE SEEN [facility] Comment on above: Performed By: #### P T #### [facility] [address] [place] [address] Dr. Mirian Velasco RBC NONE SEEN Abnormal 0-[address] [facility] Comment on above: Performed By: #### P T #### [facility] [address] [place] [address] Dr. Mirian Velasco WBC 2-5 Abnormal NONE SEEN [facility] Comment on above: Performed By: #### P T #### [facility] [address] [place] [address] Dr. Mirian Velasco YEAST PRESENT Abnormal NONE SEEN [facility] Comment on above: Result Comment: RARE BUDDING YEAST Performed By: #### P T #### [facility] [address] [place], [place] [address] Dr. Mirian Velasco POINT OF CARE GLUCOSEon 10-06 Glucose [Mass/Vol] 131 mg/dL Critically high 74-106 [facility] Comment on above: Performed By: #### P OCGLUC ####[facility] [id number] [id number]. Mirian Velasco Glucose [Mass/Vol] 113 mg/dL Critically high 74-106 [facility] Comment on above: Performed By: #### P OCGLUC ####[facility] [id number] [address]Dr. Mirian Velasco XR FOOT RT 2Von 10-17-2022 [...] NICKI DACOSTA Date: 2022-10-17 18:[address] [facility] Covid-19 PCR (CVDTB)on SARS-CoV-2 (COVID-19) RNA JOSÉ MIGUEL+probe Ql (Unsp spec) Not detected Normal NOT DETECTED [facility] Comment on above: Result Comment: This test is not yet approved or cleared by the [place] FDA. When there are no FDA-approved or cleared tests available, and other criteria are met, FDA can make tests available under an emergency access mechanism called an Emergency Use Authorization (EUA). The EUA for this test is supported by the [employer] of Health and Human Service's (HHS's) declaration [...] SARS-CoV-2. Performed By: #### C VDTB #### [facility] [address] [place], [place] [address] Dr. Mirian Velasco Diagnostic Mammogram, Unilat eral [...] VERY IMPORTANT TO YOUR HEALTH. THE CURRENT [place] [employer] OF [employer] AND N[employer] COMPREHENSIVE CANC[employer] NETWORK GUIDELINES RECOMMENDS ANNUAL MAMMOGRAPHY BEGINNING AT AGE 40 THIS FACILITY USES A REMINDER SYSTEM TO ENSURE ALL PATIENTS RECEIVE REMINDER NOTIFICATIONS AT THE APPROPRIATE TIME BASED ON THE RECOMMENDATIONS OF THIS EXAM. Board Certified Radiologist. Accredited by the ACR and FDA. Report reported and signed by Dawna Lizarraga on 09/28/2022 [address] [facility] CBC AUTO DIFFon 09-26-2022 BASO # 0.1 103/ul Normal 0.0-0.1 [facility] Comment on above: Performed By: #### L ACT #### [facility] [address] [place], [place] [address] Dr. Mirian Velasco Basophils/100 WBC (Bld) 0.8 % Normal 0.2-2.[address] [facility] Comment on above: Performed By: #### L ACT #### [facility] [address] [place], [place] [address] Dr. Mirian Velasco EO # 0.1 103/ul Normal 0.0-0.7 [facility] Comment on above: Performed By: #### L ACT #### [facility] [address] [address] [address] Mirian Velasco Eosinophils/100 WBC (Bld) 1.5 % Normal 0.9-7.0 [facility] Comment on above: Performed By: #### L ACT #### [facility] [address] [address] [address] Mirian Velasco Erythrocyte distribution width (RBC) [Ratio] 13.4 % Normal 11.0-15.0 [facility] Comment on above: Performed By: #### L ACT #### [facility] [address] [place] [address] Dr. Mirian Velasco Hematocrit (Bld) [Volume fraction] 41.3 % Normal 36.0-48.0 [facility] Comment on above: Performed By: #### L ACT #### [facility] [address] [place] [address] Dr. Mirian Velasco Hemoglobin (Bld) [Mass/Vol] 13.4 g/dL Normal 12.0-16.0 [facility] Comment on above: Performed By: #### L ACT #### [facility] [address] [place] [address] Dr. Mirian Velasco IG # 0.04 10e3/ul Critically high 0.00-0.03 [facility] Comment on above: Performed By: #### L ACT #### [facility] [address] [place] [address] Dr. Mirian Velasco IG % 0.5 % Normal 0.0-0.[address] [facility] Comment on above: Performed By: #### L ACT #### [facility] [address] [place] [address] Dr. Mirian Velasco LYMPH # 2.5 103/ul Normal 1.2-3.[address] [facility] Comment on above: Performed By: #### L ACT #### [facility] [address] [place] [address] Dr. Mirian Velasco Lymphocytes/100 WBC (Bld) 27.7 % Normal 20.5-60.0 [facility] Comment on above: Performed By: #### L ACT #### [facility] [address] [place] [address] Dr. Mirian Velasco MANUAL DIFF REQ NO Normal [facility] Comment on above: Performed By: #### L ACT #### [facility] [address] [place] [address] Dr. Mirian Velasco MCH (RBC) [Entitic mass] 27.6 pg Normal 26.7-34.0 [facility] Comment on above: Performed By: #### L ACT #### [facility] [address] [place] [address] Dr. Mirian Velasco MCHC (RBC) [Mass/Vol] 32.4 g/dL Normal 29.9-35.[address] [facility] Comment on above: Performed By: #### L ACT #### [facility] [address] [place] [address] Dr. Mirian Velasco MCV (RBC) [Entitic vol] 85.0 fL Normal 81.0-99.0 [facility] Comment on above: Performed By: #### L ACT #### [facility] [address] [place] [address] Dr. Mirian Velasco MONO # 0.6 103/ul Normal 0.3-0.8 [facility] Comment on above: Performed By: #### L ACT #### [facility] [address] [place] [address] Dr. Mirian Velasco Monocytes/100 WBC (Bld) 6.9 % Normal 1.7-12.[address] [facility] Comment on above: Performed By: #### L ACT #### [facility] [address] [place] [address] Dr. Mirian Velasco NEUT # 5.6 103/ul Normal 1.4-6.[address] [facility] Comment on above: Performed By: #### L ACT #### [facility] [address] [place] [address] Dr. Mirian Velasco Neutrophils/100 WBC (Bld) 62.6 % Normal 43.0-75.[address] [facility] Comment on above: Performed By: #### L ACT #### [facility] [address] [place] [address] Dr. Mirian Velasco Platelet mean volume (Bld) [Entitic vol] 8.6 fL Critically low 9.5-13.5 [facility] Comment on above: Performed By: #### L ACT #### [facility] [address] [place] [address] Dr. Mirian Velasco PLT 372 103/ul Normal 150-[address] [facility] Comment on above: Performed By: #### L ACT #### [facility] [address] [place] [address] Dr. Mirian Velasco RBC 4.86 106/ul Normal 4.20-5.40 [facility] Comment on above: Performed By: #### L ACT #### [facility] [address] [place] [address] Dr. Mirian Velasco WBC 8.9 103/ul Normal 4.0-11.0 [facility] Comment on above: Performed By: #### L ACT #### [facility] [address] [place] [address] Dr. Mirian Velasco PROF CHEM 8 (BAS METB)on Anion gap [Moles/Vol] 8.0 mmol/L Normal [facility] Comment on above: Performed By: #### P T #### [facility] [address] [place] [address] Dr. Mirian Velasco Calcium [Mass/Vol] 9.0 mg/dL Normal 8.5-10.1 [facility] Comment on above: Performed By: #### P T #### [facility] [address] [place] [address] Dr. Mirian Velasco Chloride [Moles/Vol] 106 mmol/L Normal 98-[address] [facility] Comment on above: Performed By: #### P T #### [facility] [address] [place] [address] Dr. Mirian Velasco CO2 [Moles/Vol] 30.3 mmol/L Normal 21.0-32.0 [facility] Comment on above: Performed By: #### P T #### [facility] [address] [place] [address] Dr. Mirian Velasco Creatinine [Mass/Vol] 0.71 mg/dL Normal 0.55-1.02 [facility] Comment on above: Performed By: #### P T #### [facility] [address] [address] [address] Mirian Velasco EGFR-AF [place] >60 Normal >=60 [facility] Comment on above: Performed By: #### P T #### [facility] [address] [address] [address] Mirian Velasco EGFR-NON AF [place] >60 Normal >=60 [facility] Comment on above: Performed By: #### P T #### [facility] [address] [address] [address] Mirian Velasco Glucose [Mass/Vol] 81 mg/dL Normal 74-106 [facility] Comment on above: Performed By: #### P T #### [facility] [address] [address] [address] Mirian Velasco Potassium [Moles/Vol] 4.3 mmol/L Normal 3.5-5.1 [facility] Comment on above: Performed By: #### P T #### [facility] [address] [address] [address] Mirian Velasco Sodium [Moles/Vol] 140 mmol/L Normal 136-145 [facility] Comment on above: Performed By: #### P T #### [facility] [address] [address] [address] Mirian Velasco Urea nitrogen [Mass/Vol] 16.0 mg/dL Normal 7.0-18.[address] [facility] Comment on above: Performed By: #### P T #### [facility] [address] [address] [address] Mirian Velasco Urea nitrogen/Creatinine [Mass ratio] 22.5 mg/mg Normal [facility] Comment on above: Performed By: #### P T #### [facility] [address] [address] [address] Mirian Velasco C reactive protein [Mass/vol ume] in Serum or PlasmaOrdered By: Annette Harris on 09-22-2022 CRP [Mass/Vol] 0.6 mg/dL 0.0-1.0 [facility] C-Reactive Proteinon 022 C-Reactive Protein 0.6 mg/dL Normal 0.0-1.0 mg/dL Located Within [facility] [employer] Other Erythrocyte Sedimentation Ra lian 09-22-2022 ESR (Bld) [Velocity] 4 mm/h Normal 0-29 [facility] [employer] Other Erythrocyte sedimentation ra te by Photometric methodOrdered By: Annette Harris on 09-22-2022 ESR Photometric method (Bld) [Velocity] 4 mm/hr 0-29 [facility] Serum nuclear antibody titer Ordered By: Annette Harris on 09-22-2022 Nuclear Ab (S) [Titer] Negative . [place] Comment on above: Negative <1:80 Borde rline 1:80 Positive >1:80ICAP nomenclature: AC-0For more information about Hep-2 cell patterns useANApatterns.org, the official website for theInternational Consensus on Antinuclear Antibody (CHUYITA)Patterns (ICAP).Performed at: [facility] [address] [id number] Director: Erick Neville PhD, Phone: [phone] Serum or plasma rheumatoid f actor measurement (units/volume)Ordered By: Annette Harris on 09-22-2022 Rheumatoid factor Qn [IU]/mL <14.0 [facility] Comment on above: Performed at: [facility] [address] [id number] Director: Erick Neville PhD, Phone: [phone] Serum or plasma thyroxine (T 4) measurement (mass/volume)Ordered By: Annette Harris on 09-22-2022 T4 [Mass/Vol] 9.82 ug/dL 5.39-11.82 [facility] Serum or plasma uric acid me asurement (mass/volume)Ordered By: Annette Harris on 09-22-2022 Urate [Mass/Vol] 4.2 mg/dL 2.6-7.2 [facility] TSH DL <= 0.005 mIU/L QnOrde red By: Annette Harris on 09-22-2022 TSH Qn 1.98 m[IU]/L 0.45-5.33 [facility] Thyroid Stimulating Hormoneo n 09-22-2022 TSH Qn 1.07289672353 m[IU]/L Normal 0.45-5 .33 u[iU]/mL [employer] [facility] Other Thyroxine (T4) Totalon 09-22 Thyroxine (T4) Total 9.82 ug/dL Normal 5.39-11 .82 ug/dL [facility] Other Uric Acidon 09-22-2022 Urate [Mass/Vol] 4.5637556 mg/dL Normal 2.6-7.2 mg/dL [facility] Other XR knee BI 2Von 09-22-2022 XR knee BI 2V [facility] [employer] Other XR knee BI 2V [facility] [employer] Other XR knee BI 2V 1111 [facility] [employer] Other XR knee BI 2V [address] [employer] Other XR knee BI 2V XRay Report [employer] Other XR knee BI 2V Signed [employer] Other XR knee BI 2V Patient: Darrian Leal MR#: [id number] [place] [employer] Other XR knee BI 2V 863 [facility] Other XR knee BI 2V : 1970 Acct:[id number] [employer] [facility] Other XR knee BI 2V Age/Sex: 52 / F ADM Date: 09/22/22 [facility] Other XR knee BI 2V Loc: [facility] Room: Type : REG CLI [employer] Other XR knee BI 2V Attending Dr: Annette Harris MD [employer] Other XR knee BI 2V Copies to: Annette Harris MD [employer] [facility] Other XR knee BI 2V Ordering Provider: Carey Harris MD [employer] Other XR knee BI 2V Date of Service: 09/22/22 [employer] Other XR knee BI 2V XR/XR knee BI 2V: Knee pain [employer] Other XR knee BI 2V XR knee BI 2V 2021 9:23 AM [employer] Other XR knee BI 2V SIGNS AND SYMPTOMS: Bilateral knee pain right greater than left [employer] Other XR knee BI 2V PROTOCOL: Frontal an d lateral radiographs of the bilateral knees [employer] Other XR knee BI 2V COMPARISON: None [employer] [facility] Other XR knee BI 2V FINDINGS: [employer] Other XR knee BI 2V There is evidence of prior ACL repair in the left knee with mild narrowing of the weightbearing [employer] Other XR knee BI 2V joint spaces on the left. The joint spaces are otherwise preserved. There is no fracture or [employer] Other XR knee BI 2V dislocation. No join t effusion or soft tissue swelling. [employer] Other XR knee BI 2V X R/XR knee BI 2V [employer] Other XR knee BI 2V IMPRESSION: [facility] [employer] Other XR knee BI 2V Status post ACL repa ir on the left. [employer] Other XR knee BI 2V Mild degenerative ch anges are noted in the weightbearing joint spaces of the left. [employer] Other XR knee BI 2V No acute bony injury. [employer] Other XR knee BI 2V Impression dictated by: Joshua Garcia M.D.09/22/2022 2:17 PM [employer] Other XR knee BI 2V Dictation Location: [place] [address] [employer] Other XR knee BI 2V Transcribed By: [facility] 09/22/22 [facility] [employer] Other XR knee BI 2V Dictated By: Joshua Garcia II, MD 09/22/22 [facility] [employer] Other XR knee BI 2V Signed By: [employer] Other XR knee BI 2V 09/22/22 [facility] [employer] Other XR shoulder BI min 2Von 09-06 XR shoulder BI min 2V XR/XR shoulder BI min 2V: Shoulder pain [employer] Other XR shoulder BI min 2V XR shoulder BI min 2V 09/22/2022 9:23 AM [employer] Other XR shoulder BI min 2V SIGNS AND SYMPTOMS : Bilateral shoulder pain with limited range of motion [employer] Other XR shoulder BI min 2V PROTOCOL: Frontal, Grashey, scapular Y, and axillary views of the bilateral shoulders [employer] Other XR shoulder BI min 2V COMPARISON: 02/26/2018 [employer] Other XR shoulder BI min 2V There has been bon y resorption of the lateral margin of the clavicle on the right suggesting [employer] Other XR shoulder BI min 2V osteomyelitis is w hich may be degenerative or traumatic. Mild hypertrophy of the AC joint is noted. [employer] Other XR shoulder BI min 2V The glenohumeral j oint is preserved on the right. There is subcortical sclerosis greater tuberosity [employer] Other XR shoulder BI min 2V of the right sugge sting underlying rotator cuff abnormalities. This is new when compared to the [employer] Other XR shoulder BI min 2V prior exam. The visualized right hemithorax is grossly intact. [employer] Other XR shoulder BI min 2V There is mild hype rtrophy of the left acromioclavicular joint. There is mild subcortical sclerosis [employer] Other XR shoulder BI min 2V of the greater tub erosity in the left suggesting underlying rotator cuff abnormalities. The [employer] Other XR shoulder BI min 2V glenohumeral joint is preserved. There is no fracture or dislocation. Visualized left hemithorax is [employer] Other XR shoulder BI min 2V grossly intact. [employer] Other XR shoulder BI min 2V There is partial visualization of intervertebral disc arthroplasty is noted within the lower [employer] Other XR shoulder BI min 2V cervical spine. Rudimentary ribs are noted at C7, right greater than left [employer] Other XR shoulder BI min 2V XR/XR shoulder BI min 2V [employer] Other XR shoulder BI min 2V Degenerative velasco es are noted in the bilateral shoulders with findings suspicious for bilateral [employer] Other XR shoulder BI min 2V rotator cuff abnormalities as above. 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 [employer] Other XR shoulder BI min 2V Rudimentary ribs a re noted at C7, right greater than left [employer] Other XR shoulder BI min 2V Impression dictate d by: Joshua Garcia M.D.09/22/2022 2:20 PM [employer] Other XR shoulder BI min 2V Transcribed By: KT Thorpe 09/22/22 1426 [employer] Other XR shoulder BI min 2V Dictated By: Joshua Garcia II, MD 09/22/22 1416 [employer] Other XR shoulder BI min 2V 09/22/22 [facility]8 [employer] Other SCREENING MAMMOGRAM W/RUSSEL, BILATERAL*on 09-14-2022 SCREENING [...] IS VERY IMPORTANT TO YOUR HEALTH. CURRENT [place] [employer] GUIDELINES RECOMMENDS ANNUAL MAMMOGRAPHY BEGINNING AT AGE 42. THIS FACILITY USUALLY USES A REMINDER SYSTEM TO ENSURE ALL POSITIONS RECEIVED REMINDER NOTIFICATIONS AT THE TIME BASED ON THE RECOMMENDATIONS OF THIS EXAM. Report reported and signed by Zaida Diaz on 09/16/2022 1334 Normal [facility] Hearing Aid Specialist Tobacco Screening.on 022 Adult depression screening assessment No [facility] y 250 DO Work Phone: Tobacco use status CPHS b) No [facility] 250 DO Work Phone: COVID Quick Testingon 2021 Result Negative [employer] Other AMYLASEon 04-17-2022 Amylase [Catalytic activity/Vol] 38 U/L Normal 25-[address] [facility] Comment on above: Performed By: #### P T #### [facility] [address] [place] [address] Dr. Mirian Velasco CBC AUTO DIFFon 04-17-2022 BASO # 0.1 103/ul Normal 0.0-0.[address] [facility] Comment on above: Performed By: #### L ACT #### [facility] [address] [address] [address] Mirian Velasco Basophils/100 WBC (Bld) 1.0 % Normal 0.2-2.[address] [facility] Comment on above: Performed By: #### L ACT #### [facility] [address] [place] [address] Dr. Mirian Velasco EO # 0.2 103/ul Normal 0.0-0.7 [facility] Comment on above: Performed By: #### L ACT #### [facility] [address] [place] [address] Dr. Mirian Velasco Eosinophils/100 WBC (Bld) 3.3 % Normal 0.9-7.[address] [facility] Comment on above: Performed By: #### L ACT #### [facility] [address] [place] [address] Dr. Mirian Velasco Erythrocyte distribution width (RBC) [Ratio] 12.0 % Normal 11.0-15.[address] [facility] Comment on above: Performed By: #### L ACT #### [facility] [address] [place] [address] Dr. Mirian Velasco Hematocrit (Bld) [Volume fraction] 37.3 % Normal 36.0-48.[address] [facility] Comment on above: Performed By: #### L ACT #### [facility] [address] [place] [address] Dr. Mirian Velasco Hemoglobin (Bld) [Mass/Vol] 12.1 g/dL Normal 12.0-16.[address] [facility] Comment on above: Performed By: #### L ACT #### [facility] [address] [place] [address] Dr. Mirian Velasco IG # 0.03 10e3/ul Normal 0.00-0.03 [facility] Comment on above: Performed By: #### L ACT #### [facility] [address] [place] [address] Dr. Mirian Velasco IG % 0.4 % Normal 0.0-0.5 [facility] Comment on above: Performed By: #### L ACT #### [facility] [address] [place] [address] Dr. Mirian Velasco LYMPH # 1.8 103/ul Normal 1.2-3.8 [facility] Comment on above: Performed By: #### L ACT #### [facility] [address] [place] [address] Dr. Mirian Velasco Lymphocytes/100 WBC (Bld) 25.2 % Normal 20.5-60.0 [facility] Comment on above: Performed By: #### L ACT #### [facility] [address] [place] [address] Dr. Mirian Velasco MANUAL DIFF REQ NO Normal [facility] Comment on above: Performed By: #### L ACT #### [facility] [address] [place] [address] Dr. Mirian Velasco MCH (RBC) [Entitic mass] 29.0 pg Normal 26.7-34.0 [facility] Comment on above: Performed By: #### L ACT #### [facility] [address] [place] [address] Dr. Mirian Velasco MCHC (RBC) [Mass/Vol] 32.4 g/dL Normal 29.9-35.[address] [facility] Comment on above: Performed By: #### L ACT #### [facility] [address] [place] [address] Dr. Mirian Velasco MCV (RBC) [Entitic vol] 89.4 fL Normal 81.0-99.0 [facility] Comment on above: Performed By: #### L ACT #### [facility] [address] [place] [address] Dr. Mirian Velasco MONO # 0.4 103/ul Normal 0.3-0.8 [facility] Comment on above: Performed By: #### L ACT #### [facility] [address] [place] [address] Dr. Mirian Velasco Monocytes/100 WBC (Bld) 5.8 % Normal 1.7-12.0 [facility] Comment on above: Performed By: #### L ACT #### [facility] [address] [address] [address] Mirian Velasco NEUT # 4.6 103/ul Normal 1.4-6.[address] [facility] Comment on above: Performed By: #### L ACT #### [facility] [address] [place] [address] Dr. Mirian Velasco Neutrophils/100 WBC (Bld) 64.3 % Normal 43.0-75.0 [facility] Comment on above: Performed By: #### L ACT #### [facility] [address] [place] [address] Dr. Mirian Velasco Platelet mean volume (Bld) [Entitic vol] 8.6 fL Critically low 9.5-13.[address] [facility] Comment on above: Performed By: #### L ACT #### [facility] [address] [place] [address] Dr. Mirian Velasco PLT 597 103/ul Critically high 150-450 [facility] Comment on above: Performed By: #### L ACT #### [facility] [address] [place] [address] Dr. Mirian Velasco RBC 4.17 106/ul Critically low 4.20-5.40 [facility] Comment on above: Performed By: #### L ACT #### [facility] [address] [place] [address] Dr. Mirian Velasco WBC 7.2 103/ul Normal 4.0-11.[address] [facility] Comment on above: Performed By: #### L ACT #### [facility] [address] [place] [address] ABD/PELVIS WO CONon [...] LORRI TRIPLETT Date: 2022-04-17 11:[address] [facility] ER URINE PROFILEon 2 Bilirubin Ql (U) Negative Normal NEGATIVE [facility] Comment on above: Performed By: #### P T #### [facility] [address] [address] [address] Mirian Velasco Clarity (U) CLEAR Normal CLEAR [facility] Comment on above: Performed By: #### P T #### [facility] [address] [address] [address] Mirian Velasco Color (U) YELLOW Normal YELLOW [facility] Comment on above: Performed By: #### P T #### [facility] [address] [address] [address] Mirian KING A micrscopic examina tion will be performed if indicated. Normal [facility] Comment on above: Performed By: #### P T #### [facility] [address] [address] [address] Mirian Velasco Glucose Ql (U) Negative Normal NEGATIVE [facility] Comment on above: Performed By: #### P T #### [facility] [address] [address] [address] Mirian Velasco Hemoglobin Ql (U) Negative Normal NEGATIVE [facility] Comment on above: Performed By: #### P T #### [facility] [address] [place] [address] Dr. Mirian Velasco Ketones Ql (U) Negative Normal NEGATIVE [facility] Comment on above: Performed By: #### P T #### [facility] [address] [address] [address] Mirian Velasco LEUKOCYTES Negative Normal NEGATIVE [facility] Comment on above: Performed By: #### P T #### [facility] [address] [address] [address] Mirian Velasco Nitrite Ql (U) Negative Normal NEGATIVE [facility] Comment on above: Performed By: #### P T #### [facility] [address] [address] [address] Mirian Velasco pH (U) 5.5 [pH] Normal 5-9 [facility] Comment on above: Performed By: #### P T #### [facility] [address] [address] [address] Mirian Velasco SPEC GRAVITY >=1.030 Abnormal 1.005-<=1. 025 [facility] Comment on above: Performed By: #### P T #### [facility] [address] [address] [address] Mirian Velasco UA PROTEIN Negative Normal NEGATIVE/ TRACE [facility] Comment on above: Performed By: #### P T #### [facility] [address] [place] [address] Dr. Mirian Velasco UR MICRO IND NOT INDICATED Normal [facility] Comment on above: Performed By: #### P T #### [facility] [address] [place] [address] Dr. Mirian Velasco Urobilinogen Qn (U) 0.2 {Lyubov'U}/dL Normal 0.2 - 1. 0 [facility] Comment on above: Performed By: #### P T #### [facility] [address] [place] [address] Dr. Mirian Velasco LIPASEon 04-17-2022 Lipase [Catalytic activity/Vol] 117.0 U/L Normal 73.0-393.0 [facility] Comment on above: Performed By: #### P T #### [facility] [address] [place] [address] Dr. Mirian Velasco PROF 14(COMP METB)on 022 Albumin [Mass/Vol] 3.5 g/dL Normal 3.4-5.0 [facility] Comment on above: Performed By: #### P T #### [facility] [address] [place] [address] Dr. Mirian Velasco Albumin/Globulin [Mass ratio] 0.9 {ratio} Normal [facility] Comment on above: Performed By: #### P T #### [facility] [address] [place] [address] Dr. Mirian Velasco ALP [Catalytic activity/Vol] 237 U/L Critically high 46-[address] [facility] Comment on above: Performed By: #### P T #### [facility] [address] [place] [address] Dr. Mirian Velasco ALT [Catalytic activity/Vol] 53 U/L Normal 14-59 [facility] Comment on above: Performed By: #### P T #### [facility] [address] [place] [address] Dr. Mirian Velasco Anion gap [Moles/Vol] 11.0 mmol/L Normal [facility] Comment on above: Performed By: #### P T #### [facility] [address] [address] [address] Mirian Velasco AST [Catalytic activity/Vol] 45 U/L Critically high 15-37 [facility] Comment on above: Performed By: #### P T #### [facility] [address] [address] [address] Mirian Velasco Bilirubin [Mass/Vol] 0.2 mg/dL Normal 0.2-1.0 [facility] Comment on above: Performed By: #### P T #### [facility] [address] [address] [address] Mirian Velasco Calcium [Mass/Vol] 9.3 mg/dL Normal 8.5-10.1 [facility] Comment on above: Performed By: #### P T #### [facility] [address] [address] [address] Mirian Velasco Chloride [Moles/Vol] 105 mmol/L Normal 98-107 [facility] Comment on above: Performed By: #### P T #### [facility] [address] [address] [address] Mirian Velasco CO2 [Moles/Vol] 29.5 mmol/L Normal 21.0-32.0 [facility] Comment on above: Performed By: #### P T #### [facility] [address] [address] [address] Mirian Velasco Creatinine [Mass/Vol] 0.69 mg/dL Normal 0.55-1.02 [facility] Comment on above: Performed By: #### P T #### [facility] [address] [address] [address] Mirian Velasco EGFR-AF [place] >110 Normal >=60 [facility] Comment on above: Performed By: #### P T #### [facility] [address] [address] [address] Mirian Velasco EGFR-NON AF [place] >90 Normal >=60 [facility] Comment on above: Performed By: #### P T #### [facility] [address] [address] [address] Mirian Velasco Globulin (S) [Mass/Vol] 4.0 g/dL Normal [facility] Comment on above: Performed By: #### P T #### [facility] [address] [address] [address] Mirian Velasco Glucose [Mass/Vol] 107 mg/dL Critically high 74-106 [facility] Comment on above: Performed By: #### P T #### [facility] [address] [address] [address] Mirian Velasco Potassium [Moles/Vol] 4.5 mmol/L Normal 3.5-5.1 [facility] Comment on above: Performed By: #### P T #### [facility] [address] [address] [address] Mirian Velasco Protein [Mass/Vol] 7.5 g/dL Normal 6.4-8.2 [facility] Comment on above: Performed By: #### P T #### [facility] [address] [address] [address] Mirian Velasco Sodium [Moles/Vol] 141 mmol/L Normal 136-145 [facility] Comment on above: Performed By: #### P T #### [facility] [address] [address] [address] Mirian Velasco Urea nitrogen [Mass/Vol] 11.0 mg/dL Normal 7.0-18.[address] [facility] Comment on above: Performed By: #### P T #### [facility] [address] [address] [address] Mirian Velasco Urea nitrogen/Creatinine [Mass ratio] 15.9 mg/mg Normal [facility] Comment on above: Performed By: #### P T #### [facility] [address] [address] [address] Mirian Velasco XR CHEST 1 Von 04-17-2022 XR CHEST 1 V EXAM: Chest x-ray HISTORY: Pain. COMPARISON: 02/20/2022 TECHNIQUE: AP portable upright view of the chest. FINDINGS: Heart and Vascularity are unremarkable. Lungs are free of focal infiltrates. No effusions are noted. Impression: No acute heart or lung disease identified. Electronically authenticated by: NICKI BUTT Date: 2022-04-17 11:03 Normal [facility] Basic metabolic 2000 panelon 04-05-2022 Anion gap [Moles/Vol] 13 mmol/L Normal 9-18 [facility] Comment on above: Order Comment: Speci men Type: BLOOD SPECIMEN Ordering Facility: [facility] Address: [address] [place] [address] Performed By: #### 5 8410-2 #### [facility] CLIA [id number] [address] [place] [address] [place] Calcium [Mass/Vol] 9.0 mg/dL Normal 8.5-10.2 [facility] Comment on above: Order Comment: Speci men Type: BLOOD SPECIMEN Ordering Facility: [facility] Address: [address] [place] [address] Performed By: #### 5 8410-2 #### [facility] CLIA [id number] [address] [place] [address] [place] Chloride [Moles/Vol] 104 mmol/L Normal 97-105 [facility] Comment on above: Order Comment: Speci men Type: BLOOD SPECIMEN Ordering Facility: [facility] Address: [address] [place] [address] Performed By: #### 5 8410-2 #### [facility] CLIA [id number] [address] [place] [address] [place] CO2 [Moles/Vol] 25 mmol/L Normal 22-30 [facility] Comment on above: Order Comment: Speci men Type: BLOOD SPECIMEN Ordering Facility: [facility] Address: [address] [place] [address] Performed By: #### 5 8410-2 #### [facility] CLIA [id number] [address] [place] [address] [place] Creatinine [Mass/Vol] 0.65 mg/dL Normal 0.58-0.96 [facility] Comment on above: Order Comment: Speci men Type: BLOOD SPECIMEN Ordering Facility: [facility] Address: [address] [place] [address] Performed By: #### 5 8410-2 #### [facility] CLIA [id number] [address] [place] [address] [place] ESTIMATED GLOMERULAR FILTRATION RATE 108 mL/min/1.73m??? Normal >=60 [facility] Comment on above: Order Comment: Leanne terry Type: BLOOD SPECIMEN Ordering Facility: [facility] Address: [address] [place] [address] Result Comment: Mary mated Glomerular Filtration Rate [...] GFR. Performed By: #### 5 8410-2 #### [facility] CLIA [id number] [address] [place] [address] [place] Glucose [Mass/Vol] 109 mg/dL High 74-99 [facility] Comment on above: Order Comment: Leanne terry Type: BLOOD SPECIMEN Ordering Facility: [facility] Address: [address] [place] [address] Result Comment: The [place] [employer] Association (ADA) provides guidance for cutoff [...] Standards of Medical Care in Diabetes 2016, [place] [employer]. Diabetes Care. 2016.39(Suppl 1). Performed By: #### 5 8410-2 #### [facility] CLIA [id number] [address] [place] [address] [place] Potassium [Moles/Vol] 3.9 mmol/L Normal 3.7-5.1 [facility] Comment on above: Order Comment: Speci men Type: BLOOD SPECIMEN Ordering Facility: [facility] Address: [address] [place] [address] Performed By: #### 5 8410-2 #### [facility] [place] [id number] [address] [place] [address] [place] Sodium [Moles/Vol] 142 mmol/L Normal 136-144 [facility] Comment on above: Order Comment: Speci men Type: BLOOD SPECIMEN Ordering Facility: [facility] Address: [address] [place] [address] Performed By: #### 5 8410-2 #### [id number] [address] [place] [address] [place] Urea nitrogen [Mass/Vol] 7 mg/dL Normal 7-21 [facility] Comment on above: Order Comment: Speci men Type: BLOOD SPECIMEN Ordering Facility: [facility] Address: [address] [place] [address] Performed By: #### 5 8410-2 #### [id number] [address] [place] [address] [place] CBC W Auto Differential pane l (Bld)on 04-05-2022 Basophils (Bld) [#/Vol] 0.05 10*3/uL Normal <0.11 [facility] Comment on above: Order Comment: Speci men Type: BLOOD SPECIMENOrdering Facility: [facility] Address: [address] [place] [address] Performed By: #### B MP #### [place] [address] Basophils/100 WBC (Bld) 0.7 % Normal [facility] Comment on above: Order Comment: Speci men Type: BLOOD SPECIMENOrdering Facility: [facility] Address: [address] [place] [address] Performed By: #### B MP #### [place] [phone] Differential cell count method Nom (Bld) Auto Normal [facility] Comment on above: Order Comment: Speci men Type: BLOOD SPECIMENOrdering Facility: [facility] Address: [address] [place] [address] Performed By: #### B MP #### [place] [phone] Eosinophils (Bld) [#/Vol] 0.55 10*3/uL High <0.46 [facility] Comment on above: Order Comment: Speci men Type: BLOOD SPECIMENOrdering Facility: [facility] Address: [address] [place] [address] Performed By: #### B MP #### [address] Eosinophils/100 WBC (Bld) 8.2 % Normal [facility] Comment on above: Order Comment: Speci men Type: BLOOD SPECIMENOrdering Facility: [facility] Address: [address] [place] [address] Performed By: #### B MP #### [place] [address] Erythrocyte distribution width (RBC) [Ratio] 12.8 % Normal 11.5-15.0 [facility] Comment on above: Order Comment: Speci men Type: BLOOD SPECIMENOrdering Facility: [facility] Address: [address] [place] [address] Performed By: #### B MP #### [address] Hematocrit (Bld) [Volume fraction] 31.1 % Low 36.0-46.0 [facility] Comment on above: Order Comment: Speci men Type: BLOOD SPECIMENOrdering Facility: [facility] Address: [address] [place] [address] Performed By: #### B MP #### [place] [phone] Hemoglobin (Bld) [Mass/Vol] 10.5 g/dL Low 11.5-15.5 [facility] Comment on above: Order Comment: Speci men Type: BLOOD SPECIMENOrdering Facility: [facility] Address: [address] [place] [address] Performed By: #### B MP #### [phone] IMMATURE GRAN % 0.4 % Normal [facility] Comment on above: Order Comment: Speci men Type: BLOOD SPECIMENOrdering Facility: [facility] Address: [address] [place] [address] Performed By: #### B MP #### [place] [phone] IMMATURE GRAN ABS 0.03 k/uL Normal <0.10 [facility] Comment on above: Order Comment: Speci men Type: BLOOD SPECIMENOrdering Facility: [facility] Address: [address] [place] [address] Performed By: #### B MP #### [place] [phone] Lymphocytes (Bld) [#/Vol] 1.47 10*3/uL Normal 1.00-4.00 [facility] Comment on above: Order Comment: Speci men Type: BLOOD SPECIMENOrdering Facility: [facility] Address: [address] [place] [address] Performed By: #### B MP #### [place] [phone] Lymphocytes/100 WBC (Bld) 22.0 % Normal [facility] Comment on above: Order Comment: Speci men Type: BLOOD SPECIMENOrdering Facility: [facility] Address: [address] [place] [address] Performed By: #### B MP #### [phone] MCH (RBC) [Entitic mass] 29.9 pg Normal 26.0-34.0 [facility] Comment on above: Order Comment: Speci men Type: BLOOD SPECIMENOrdering Facility: [facility] Address: [address] [place] [address] Performed By: #### B MP #### [place] [phone] MCHC (RBC) [Mass/Vol] 33.8 g/dL Normal 30.5-36.0 [facility] Comment on above: Order Comment: Speci men Type: BLOOD SPECIMENOrdering Facility: [facility] Address: [address] [place] [address] Performed By: #### B MP #### [phone] MCV (RBC) [Entitic vol] 88.6 fL Normal 80.0-100.0 [facility] Comment on above: Order Comment: Speci men Type: BLOOD SPECIMENOrdering Facility: [facility] Address: [address] [place] [address] Performed By: #### B MP #### [id number] Monocytes (Bld) [#/Vol] 0.50 10*3/uL Normal <0.87 [facility] Comment on above: Order Comment: Speci men Type: BLOOD SPECIMENOrdering Facility: [facility] Address: [address] [place] [address] Performed By: #### B MP #### [id number] Monocytes/100 WBC (Bld) 7.5 % Normal [facility] Comment on above: Order Comment: Speci men Type: BLOOD SPECIMENOrdering Facility: [facility] Address: [address] [place] [address] Performed By: #### B MP #### [place] [id number] Neutrophils (Bld) [#/Vol] 4.08 10*3/uL Normal 1.45-7.50 [facility] Comment on above: Order Comment: Speci men Type: BLOOD SPECIMENOrdering Facility: [facility] Address: [address] [place] [address] Performed By: #### B MP #### [id number] Neutrophils/100 WBC (Bld) 61.2 % Normal [facility] Comment on above: Order Comment: Speci men Type: BLOOD SPECIMENOrdering Facility: [facility] Address: [address] [place] [address] Performed By: #### B MP #### [id number] Nucleated RBC (Bld) [#/Vol] 10*3/uL Normal <0.01 [facility] Comment on above: Order Comment: Speci men Type: BLOOD SPECIMENOrdering Facility: [facility] Address: [address] [place] [address] Performed By: #### B MP #### [place] [phone] Nucleated RBC/100 WBC (Bld) [Ratio] 0.0 /100 WBC Normal [facility] Comment on above: Order Comment: Speci men Type: BLOOD SPECIMENOrdering Facility: [facility] Address: [address] [place] [address] Performed By: #### B MP #### [place] [phone] Platelet mean volume (Bld) [Entitic vol] 8.9 fL Low 9.0-12.7 [facility] Comment on above: Order Comment: Speci men Type: BLOOD SPECIMENOrdering Facility: [facility] Address: [address] [place] [address] Performed By: #### B MP #### [id number] Platelets (Bld) [#/Vol] 455 10*3/uL High 150-400 [facility] Comment on above: Order Comment: Speci men Type: BLOOD SPECIMENOrdering Facility: [facility] Address: [address] [address] Performed By: #### B MP #### [place] [address] RBC (Bld) [#/Vol] 3.51 10*6/uL Low 3.90-5.20 [facility] Comment on above: Order Comment: Speci men Type: BLOOD SPECIMENOrdering Facility: [facility] Address: [address] [place] [address] Performed By: #### B MP #### [place] [address] WBC (Bld) [#/Vol] 6.68 10*3/uL Normal 3.70-11.00 [facility] Comment on above: Order Comment: Speci men Type: BLOOD SPECIMENOrdering Facility: [facility] Address: [address] [place] [address] Performed By: #### B MP #### [place] [address] CNDSon 04-05-2022 CNDS HNO ID: [id number] Author: Jessi Sheets APRN.CHILD DAY CARE PROVIDER Service: Colorectal Author Type: Nurse Practitioner Type: [...] of the summary. CONSULTING TEAMS DURING HOSPITALIZATION: [facility] Treatment Team: Attending Provider: Mary [...] only. Pain controlled with TAPs and a GRINDER AND PLATER. Remained nauseated. POD4 re-advanced to full liquids [...] by mo (more content not included)... Normal [facility] Magnesium SerPl-mCmeon 04-05 Magnesium [Mass/Vol] 2.0 mg/dL Normal 1.7-2.3 [facility] Comment on above: Order Comment: Speci men Type: BLOOD SPECIMEN [facility] Address: [address] [place] [address] Performed By: #### 5 8410-2 #### [facility] CLIA [id number] [address] NURSING PROGon 04-05-2022 NURSING PROG HNO ID: [id number] Author: Liliana Mayer RN Service: ? 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 This note was completed by: Liliana Mayer [facility] NURSING PROG HNO ID: [id number] Author: Liliana Mayer RN Service: ? Author [...] This note was completed by: Liliana Mayer [facility] NURSING PROG HNO ID: [id number] Author: Eagle Gu RN Service: ? Author Type: Registered Nurse Type: Nursing Progress Note Filed: 04/04/2022 10:58 PM Note Text: Nursing Progress Note Patient Name: Mary Leal Patient Location: [address]/[id number] Daily Note:04/04/22 2140 Pt is alert and oriented x3. Pt mabulating independently. Surgical sites intact. Pt refusing IVF, pt states she drinks enough water. This note was completed by: Eagle Gu [facility] NUTRITIONon 04-05-2022 NUTRITION HNO ID: [id number] Author: Merced Morales DTR Service: Nutrition Therapy Author Type: Senior Network Architect Type: Nutrition Filed: 04/05/2022 10:42 AM Note Text: NUTRITION THERAPY TRAFFIC COURT REFEREE NOTE SERVICE DATE: 04/05/2022 SERVICE TIME: 9:45 [...] April 05, 2022 TIME: 9:54 AM Normal [facility] Phosphate SerPl-mCncon 04-05 Phosphate [Mass/Vol] 4.6 mg/dL Normal 2.7-4.8 [facility] Comment on above: Order Comment: Speci men Type: BLOOD SPECIMEN [facility] Address: [address] [place] [address] Performed By: #### 5 8410-2 #### [facility] CLIA [id number] [address] [place] [address] [place] Basic metabolic 2000 panelon 04-04-2022 Anion gap [Moles/Vol] 10 mmol/L Normal 9-18 [facility] Comment on above: Order Comment: Speci men Type: BLOOD SPECIMENOrdering Facility: [facility] Address: [address] [place] [address] Performed By: #### 2 4321-2, , 2776-11 ####[facility] [id number] [place] [address] [place] Calcium [Mass/Vol] 8.9 mg/dL Normal 8.5-10.2 [facility] Comment on above: Order Comment: Speci men Type: BLOOD SPECIMENOrdering Facility: [facility] Address: [address] [place] [address] Performed By: #### 2 4321-2, , 2776-11 ####[facility]ORYCLIA [id number] [place] [address] [place] Chloride [Moles/Vol] 104 mmol/L Normal 97-105 [facility] Comment on above: Order Comment: Speci men Type: BLOOD SPECIMENOrdering Facility: [facility] Address: [address] [place], [place] [address] Performed By: #### 2 4321-2, , 2776-11 ####[facility]ATORYCLIA [id number] [place] [address] [place] CO2 [Moles/Vol] 26 mmol/L Normal 22-30 [facility] Comment on above: Order Comment: Speci men Type: BLOOD SPECIMENOrdering Facility: [facility] Address: [address] [place] [address] Performed By: #### 2 4321-2, , 2776-11 ####[facility] [id number] [address] [facility] Creatinine [Mass/Vol] 0.56 mg/dL Low 0.58-0.96 [facility] Comment on above: Order Comment: Speci men Type: BLOOD SPECIMENOrdering Facility: [facility] Address: [address] [place] [address] Performed By: #### 2 4321-2, , 2776-11 ####[facility] [id number] [address] ESTIMATED GLOMERULAR FILTRATION RATE 112 mL/min/1.73m??? Normal >=60 [facility] Comment on above: Order Comment: Speci men Type: BLOOD SPECIMENOrdering Facility: [facility] Address: [address] [place] [address] Result Comment: Mary mated Glomerular Filtration Rate [...] #### 2 4321-2, , 2776-11 ####[facility] [id number] [place] [address] [place] Glucose [Mass/Vol] 112 mg/dL High 74-99 [facility] Comment on above: Order Comment: Everettei men Type: BLOOD SPECIMENOrdering Facility: [facility] Address: [address] [place], [place] [address] Result Comment: The [place] Diabetes Association (ADA) provides guidance for cutoff [...] Standards of Medical Care in Diabetes 2016, [place] Diabetes Association. Diabetes Care. 2016.39(Suppl 1). Performed By: #### 2 4321-2, , 2776-11 ####[facility]ATORYCLIA [id number] [place] [address] [place] Potassium [Moles/Vol] 3.9 mmol/L Normal 3.7-5.1 [facility] Comment on above: Order Comment: Leanne terry Type: BLOOD SPECIMENOrdering Facility: [facility] Address: [address] [place], [place] [address] Performed By: #### 2 4321-2, , 2776-11 ####[facility]ORYCLIA [id number] [place] [address] [place] Sodium [Moles/Vol] 140 mmol/L Normal 136-144 [facility] Comment on above: Order Comment: Leanne men Type: BLOOD SPECIMENOrdering Facility: [facility] Address: [address] [place] [address] Performed By: #### 2 4321-2, , 2776-11 ####[facility]ATORYCLIA [id number] [place] [address] [place] Urea nitrogen [Mass/Vol] 3 mg/dL Low 7- [facility] Comment on above: Order Comment: Speci men Type: BLOOD SPECIMENOrdering Facility: [facility] Address: [address] [place] [address] Performed By: #### 2 4321-2, 08336-7, 2777-1 ####[facility] [id number] [place] [address] [place] CBC W Auto Differential pane l (Bld)on 04-04-2022 Basophils (Bld) [#/Vol] 0.03 10*3/uL Normal <0.11 [facility] Comment on above: Order Comment: Speci men Type: BLOOD SPECIMEN [facility] Address: [address] [place] [address] Performed By: #### 5 7021-8 #### [facility] CLIA [id number] [address] [place] [address] [place] Basophils/100 WBC (Bld) 0.5 % Normal [facility] Comment on above: Order Comment: Speci men Type: BLOOD SPECIMEN [facility] Address: [address] [place] [address] Performed By: #### 5 7021-8 #### [facility] CLIA [id number] [address] [place] [address] [place] Differential cell count method Nom (Bld) Auto Normal [facility] Comment on above: Order Comment: Speci men Type: BLOOD SPECIMEN [facility] Address: [address] [place] [address] Performed By: #### 5 7021-8 #### [facility] CLIA [id number] [address] [place] [address] [place] Eosinophils (Bld) [#/Vol] 0.48 10*3/uL High <0.46 [facility] Comment on above: Order Comment: Speci men Type: BLOOD SPECIMEN [facility] Address: [address] [place] [address] Performed By: #### 5 7021-8 #### [facility] CLIA [id number] [address] [place] [address] [place] Eosinophils/100 WBC (Bld) 7.7 % Normal [facility] Comment on above: Order Comment: Speci men Type: BLOOD SPECIMEN [facility] Address: [address] [place] [address] Performed By: #### 5 7021-8 #### [facility] CLIA [id number] [address] [place] [address] [place] Erythrocyte distribution width (RBC) [Ratio] 12.7 % Normal 11.5-15.0 [facility] Comment on above: Order Comment: Speci men Type: BLOOD SPECIMEN [facility] Address: [address] [place] [address] Performed By: #### 5 7021-8 #### [facility] CLIA [id number] [address] [place] [address] [place] Hematocrit (Bld) [Volume fraction] 31.2 % Low 36.0-46.0 [facility] Comment on above: Order Comment: Speci men Type: BLOOD SPECIMEN [facility] Address: [address] [place] [address] Performed By: #### 5 7021-8 #### [facility] CLIA [id number] [address] [place] [address] [place] Hemoglobin (Bld) [Mass/Vol] 10.7 g/dL Low 11.5-15.5 [facility] Comment on above: Order Comment: Speci men Type: BLOOD SPECIMEN [facility] Address: [address] [place] [address] Performed By: #### 5 7021-8 #### [facility] CLIA [id number] [address] [place] [address] [place] IMMATURE GRAN % 0.5 % Normal [facility] Comment on above: Order Comment: Speci men Type: BLOOD SPECIMEN [facility] Address: [address] Performed By: #### 5 7021-8 #### [facility] CLIA [id number] [address] [place] [address] [place] IMMATURE GRAN ABS 0.03 k/uL Normal <0.10 [facility] Comment on above: Order Comment: Speci men Type: BLOOD SPECIMEN [facility] Address: [address] [place] [address] Performed By: #### 5 7021-8 #### [facility] CLIA [id number] [address] [place] [address] [place] Lymphocytes (Bld) [#/Vol] 1.13 10*3/uL Normal 1.00-4.00 [facility] Comment on above: Order Comment: Speci men Type: BLOOD SPECIMEN [facility] Address: [address] [place] [address] Performed By: #### 5 7021-8 #### [facility] CLIA [id number] [address] [place] [address] Lymphocytes/100 WBC (Bld) 18.2 % Normal [facility] Comment on above: Order Comment: Speci men Type: BLOOD SPECIMEN [facility] Address: [address] [place] [address] Performed By: #### 5 7021-8 #### [facility] CLIA [id number] [address] [place] [address] [place] MCH (RBC) [Entitic mass] 29.9 pg Normal 26.0-34.0 [facility] Comment on above: Order Comment: Speci men Type: BLOOD SPECIMEN [facility] Address: [address] [place] [address] Performed By: #### 5 7021-8 #### [facility] CLIA [id number] [address] [place] [address] [place] MCHC (RBC) [Mass/Vol] 34.3 g/dL Normal 30.5-36.0 [facility] Comment on above: Order Comment: Speci men Type: BLOOD SPECIMEN [facility] Address: [address] [place] [address] Performed By: #### 5 7021-8 #### [facility] CLIA [id number] [address] [place] [address] [place] MCV (RBC) [Entitic vol] 87.2 fL Normal 80.0-100.0 [facility] Comment on above: Order Comment: Speci men Type: BLOOD SPECIMEN [facility] Address: [address] [place] [address] Performed By: #### 5 7021-8 #### [facility] CLIA [id number] [address] [place] [address] [place] Monocytes (Bld) [#/Vol] 0.36 10*3/uL Normal <0.87 [facility] Comment on above: Order Comment: Speci men Type: BLOOD SPECIMEN [facility] Address: [address] [place] [address] Performed By: #### 5 7021-8 #### [facility] CLIA [id number] [address] [place] [address] [place] Monocytes/100 WBC (Bld) 5.8 % Normal [facility] Comment on above: Order Comment: Speci men Type: BLOOD SPECIMEN [facility] Address: [address] [place] [address] Performed By: #### 5 7021-8 #### [facility] CLIA [id number] [address] [place] [address] [place] Neutrophils (Bld) [#/Vol] 4.18 10*3/uL Normal 1.45-7.50 [facility] Comment on above: Order Comment: Speci men Type: BLOOD SPECIMEN [facility] Address: [address] [place] [address] Performed By: #### 5 7021-8 #### [facility] CLIA [id number] [address] [place] [address] [place] Neutrophils/100 WBC (Bld) 67.3 % Normal [facility] Comment on above: Order Comment: Speci men Type: BLOOD SPECIMEN [facility] Address: [address] [place] [address] Performed By: #### 5 7021-8 #### [facility] CLIA [id number] [address] [place] [address] [place] Nucleated RBC (Bld) [#/Vol] 10*3/uL Normal <0.01 [facility] Comment on above: Order Comment: Speci men Type: BLOOD SPECIMEN [facility] Address: [address] [place] [address] Performed By: #### 5 7021-8 #### [facility] CLIA [id number] [address] [place] [address] [place] Nucleated RBC/100 WBC (Bld) [Ratio] 0.0 /100 WBC Normal [facility] Comment on above: Order Comment: Speci men Type: BLOOD SPECIMEN [facility] Address: [address] [place] [address] Performed By: #### 5 7021-8 #### [facility] CLIA [id number] [address] [place] [address] [place] Platelet mean volume (Bld) [Entitic vol] 8.7 fL Low 9.0-12.7 [facility] Comment on above: Order Comment: Speci men Type: BLOOD SPECIMEN [facility] Address: [address] [place], [place] [address] Performed By: #### 5 7021-8 #### [facility] CLIA [id number] [address] [place] [address] [place] Platelets (Bld) [#/Vol] 436 10*3/uL High 150-400 [facility] Comment on above: Order Comment: Speci men Type: BLOOD SPECIMEN [facility] Address: [address] [place] [address] Performed By: #### 5 7021-8 #### [facility] CLIA [id number] [address] [place] [address] [place] RBC (Bld) [#/Vol] 3.58 10*6/uL Low 3.90-5.20 [facility] Comment on above: Order Comment: Speci men Type: BLOOD SPECIMEN [facility] Address: [address] [place] [address] Performed By: #### 5 7021-8 #### [facility] [place] [id number] [address] [place] [address] [place] [facility] WBC (Bld) [#/Vol] 6.21 10*3/uL Normal 3.70-11.00 [facility] Comment on above: Order Comment: Speci men Type: BLOOD SPECIMEN [facility] Address: [address] [place] [address] Performed By: #### 5 7021-8 #### [facility] IA [id number] [address] [place] [address] [place] [facility] [place] Magnesium SerPl-mCncon 04-04 Magnesium [Mass/Vol] 2.1 mg/dL Normal 1.7-2.3 [facility] Comment on above: Order Comment: Speci men Type: BLOOD SPECIMENOrdering Facility: [facility] Address: [address] [place] [address] Performed By: #### 2 4321-2, 70353-6, 2777-1 ####[facility]ATORYIA [id number] [place] [address] [place] NURSING PROGon 04-04-2022 NURSING PROG HNO ID: [id number] Author: Dipti Crowley RN Service: Nursing Author Type: Registered Nurse Type: Nursing Progress Note Filed: 04/04/2022 7:47 PM Note Text: Nursing Progress Note Patient Name: Mary Leal Patient Location: [address] Daily Note:Patient refusing further IVF. This note was completed by: [facility] NURSING PROG HNO ID: [id number] Author: Dipti Crowley, MAKI Service: Nursing Author Type: Registered Nurse Type: Nursing Progress Note Filed: 04/04/2022 11:11 AM Note Text: Nursing Progress Note Patient Name: Mary Leal Patient Location: [address]/ Daily Note: Patient up in chair and [...] notified, but post call. 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 Will continue to monitor. Call light in reach. This note was completed by: [facility] Phosphate SerPl-mCncon 04-04 Phosphate [Mass/Vol] 3.2 mg/dL Normal 2.7-4.8 [facility] Comment on above: Order Comment: Speci men Type: BLOOD SPECIMENOrdering Facility: [facility] Address: [address] [place], [place] [address] Performed By: #### 2 4321-2, 19284-1, 2777-1 ####[facility] [id number] [address] STATES OF [facility] ALLIED HEALTHon 04-03-2022 ALLIED HEALTH HNO ID: [id number] Author: MALAIKA Martinez Service: ? Author Type: Glove Presser Type: Allied Health Filed: 04/03/2022 5:35 PM [...] DATA: Inpatient: see LDA documentation SIGNED BY: Carmen Daley, MALAIKA April 03, 2022 5:35 PM Normal [facility] Basic metabolic 2000 panelon 04-03-2022 Anion gap [Moles/Vol] 10 mmol/L Normal 9-18 [facility] Comment on above: Order Comment: Specamena terry Type: BLOOD SPECIMENOrdering Facility: [facility] Address: [address] [place] [address] Performed By: #### B MP #### [place] [id number] Calcium [Mass/Vol] 8.4 mg/dL Low 8.5-10.2 [facility] Comment on above: Order Comment: Speci [facility] Type: BLOOD SPECIMENOrdering Facility: [facility] Address: [address] [place] [address] Performed By: #### B MP #### [place] [phone] Chloride [Moles/Vol] 103 mmol/L Normal 97-105 [facility] Comment on above: Order Comment: Everettei [facility] Type: BLOOD SPECIMENOrdering Facility: [facility] Address: [address] [place] [address] Performed By: #### B MP #### [id number] CO2 [Moles/Vol] 25 mmol/L Normal 22-30 [facility] Comment on above: Order Comment: Speci men Type: BLOOD SPECIMENOrdering Facility: [facility] Address: [address] [place], [place] [address] Performed By: #### B MP #### [place] [phone] Creatinine [Mass/Vol] 0.60 mg/dL Normal 0.58-0.96 [facility] Comment on above: Order Comment: Speci men Type: BLOOD SPECIMENOrdering Facility: [facility] Address: [address] [place] [address] Performed By: #### B MP #### [place] [phone] ESTIMATED GLOMERULAR FILTRATION RATE 110 mL/min/1.73m??? Normal >=60 [facility] Comment on above: Order Comment: Speci men Type: BLOOD SPECIMENOrdering Facility: [facility] Address: [address] [place] [address] Result Comment: Mary mated Glomerular Filtration Rate [...] GFR. Performed By: #### B MP #### [place] [phone] Glucose [Mass/Vol] 106 mg/dL High 74-99 [facility] Comment on above: Order Comment: Speci men Type: BLOOD SPECIMENOrdering Facility: [facility] Address: [address] [place], [place] [address] Result Comment: The [place] Diabetes [employer] (ADA) provides guidance for cutoff [...] Standards of Medical Care in Diabetes 2016, [place] [employer]. Diabetes Care. 2016.39(Suppl 1). Performed By: #### B MP #### [place] [id number] Potassium [Moles/Vol] 3.3 mmol/L Low 3.7-5.1 [facility] Comment on above: Order Comment: Leanne terry Type: BLOOD SPECIMENOrdering Facility: [facility] Address: [address] [place] [address] Performed By: #### B MP #### [place] [phone] Sodium [Moles/Vol] 138 mmol/L Normal 136-144 [facility] Comment on above: Order Comment: Leanne terry Type: BLOOD SPECIMENOrdering Facility: [facility] Address: [address] [place] [address] Performed By: #### B MP #### [place] [phone] Urea nitrogen [Mass/Vol] 4 mg/dL Low 7-21 [facility] Comment on above: Order Comment: Leanne terry Type: BLOOD SPECIMENOrdering Facility: [facility] Address: [address] [place] [address] Performed By: #### B MP #### [id number] CBC W Auto Differential pane l (Bld)on 04-03-2022 Basophils (Bld) [#/Vol] 0.03 10*3/uL Normal <0.11 [facility] Comment on above: Order Comment: Leanne terry Type: BLOOD SPECIMENOrdering Facility: [facility] Address: [address] [place] [address] Performed By: #### B MP #### [place] [id number] Basophils/100 WBC (Bld) 0.4 % Normal [facility] Comment on above: Order Comment: Speci men Type: BLOOD SPECIMENOrdering Facility: [facility] Address: [address] [place] [address] Performed By: #### B MP #### [place] [id number] Differential cell count method Nom (Bld) Auto Normal [facility] Comment on above: Order Comment: Speci men Type: BLOOD SPECIMENOrdering Facility: [facility] Address: [address] [place] [address] Performed By: #### B MP #### [place] [address] Eosinophils (Bld) [#/Vol] 0.48 10*3/uL High <0.46 [facility] Comment on above: Order Comment: Speci men Type: BLOOD SPECIMENOrdering Facility: [facility] Address: [address] [place] [address] Performed By: #### B MP #### [address] Eosinophils/100 WBC (Bld) 6.5 % Normal [facility] Comment on above: Order Comment: Speci men Type: BLOOD SPECIMENOrdering Facility: [facility] Address: [address] [place] [address] Performed By: #### B MP #### [address] Erythrocyte distribution width (RBC) [Ratio] 12.5 % Normal 11.5-15.0 [facility] Comment on above: Order Comment: Speci men Type: BLOOD SPECIMENOrdering Facility: [facility] Address: [address] [place] [address] Performed By: #### B MP #### [place] [id number] Hematocrit (Bld) [Volume fraction] 29.5 % Low 36.0-46.0 [facility] Comment on above: Order Comment: Speci men Type: BLOOD SPECIMENOrdering Facility: [facility] Address: [address] [place] [address] Performed By: #### B MP #### [place] [id number] Hemoglobin (Bld) [Mass/Vol] 10.2 g/dL Low 11.5-15.5 [facility] Comment on above: Order Comment: Speci men Type: BLOOD SPECIMENOrdering Facility: [facility] Address: [address] [place] [address] Performed By: #### B MP #### [id number] IMMATURE GRAN % 0.5 % Normal [facility] Comment on above: Order Comment: Speci men Type: BLOOD SPECIMENOrdering Facility: [facility] Address: [address] [place] [address] Performed By: #### B MP #### [place] [id number] IMMATURE GRAN ABS 0.04 k/uL Normal <0.10 [facility] Comment on above: Order Comment: Speci men Type: BLOOD SPECIMENOrdering Facility: [facility] Address: [address] [place] [address] Performed By: #### B MP #### [place] [phone] Lymphocytes (Bld) [#/Vol] 1.11 10*3/uL Normal 1.00-4.00 [facility] Comment on above: Order Comment: Speci men Type: BLOOD SPECIMENOrdering Facility: [facility] Address: [address] [place] [address] Performed By: #### B MP #### [place] [id number] Lymphocytes/100 WBC (Bld) 15.0 % Normal [facility] Comment on above: Order Comment: Speci men Type: BLOOD SPECIMENOrdering Facility: [facility] Address: [address] [place] [address] Performed By: #### B MP #### [place] [id number] MCH (RBC) [Entitic mass] 30.1 pg Normal 26.0-34.0 [facility] Comment on above: Order Comment: Speci men Type: BLOOD SPECIMENOrdering Facility: [facility] Address: [address] [place] [address] Performed By: #### B MP #### [id number] MCHC (RBC) [Mass/Vol] 34.6 g/dL Normal 30.5-36.0 [facility] Comment on above: Order Comment: Speci men Type: BLOOD SPECIMENOrdering Facility: [facility] Address: [address] [place] [address] Performed By: #### B MP #### [id number] MCV (RBC) [Entitic vol] 87.0 fL Normal 80.0-100.0 [facility] Comment on above: Order Comment: Speci men Type: BLOOD SPECIMENOrdering Facility: [facility] Address: [address] [place] [address] Performed By: #### B MP #### [id number] Monocytes (Bld) [#/Vol] 0.46 10*3/uL Normal <0.87 [facility] Comment on above: Order Comment: Speci men Type: BLOOD SPECIMENOrdering Facility: [facility] Address: [address] [place] [address] Performed By: #### B MP #### [id number] Monocytes/100 WBC (Bld) 6.2 % Normal [facility] Comment on above: Order Comment: Speci men Type: BLOOD SPECIMENOrdering Facility: [facility] Address: [address] [place] [address] Performed By: #### B MP #### [phone] Neutrophils (Bld) [#/Vol] 5.27 10*3/uL Normal 1.45-7.50 [facility] Comment on above: Order Comment: Speci men Type: BLOOD SPECIMENOrdering Facility: [facility] Address: [address] [place] [address] Performed By: #### B MP #### [phone] Neutrophils/100 WBC (Bld) 71.4 % Normal [facility] Comment on above: Order Comment: Speci men Type: BLOOD SPECIMENOrdering Facility: [facility] Address: [address] [place] [address] Performed By: #### B MP #### [id number] Nucleated RBC (Bld) [#/Vol] 10*3/uL Normal <0.01 [facility] Comment on above: Order Comment: Speci men Type: BLOOD SPECIMENOrdering Facility: [facility] Address: [address] [place] [address] Performed By: #### B MP #### [place] [phone] Nucleated RBC/100 WBC (Bld) [Ratio] 0.0 /100 WBC Normal [facility] Comment on above: Order Comment: Speci men Type: BLOOD SPECIMENOrdering Facility: [facility] Address: [address] [place] [address] Performed By: #### B MP #### [place] [id number] Platelet mean volume (Bld) [Entitic vol] 8.6 fL Low 9.0-12.7 [facility] Comment on above: Order Comment: Speci men Type: BLOOD SPECIMENOrdering Facility: [facility] Address: [address] [place] [address] Performed By: #### B MP #### [place] [phone] Platelets (Bld) [#/Vol] 342 10*3/uL Normal 150-400 [facility] Comment on above: Order Comment: Speci men Type: BLOOD SPECIMENOrdering Facility: [facility] Address: [address] [place] [address] Performed By: #### B MP #### [place] [phone] RBC (Bld) [#/Vol] 3.39 10*6/uL Low 3.90-5.20 [facility] Comment on above: Order Comment: Speci men Type: BLOOD SPECIMENOrdering Facility: [facility] Address: [address] [place] [address] Performed By: #### B MP #### [place] [phone] WBC (Bld) [#/Vol] 7.39 10*3/uL Normal 3.70-11.00 [facility] Comment on above: Order Comment: Speci men Type: BLOOD SPECIMENOrdering Facility: [facility] Address: [address] [place] [address] Performed By: #### B MP #### [place] [id number] CONSULT PROGon 04-03-2022 CONSULT PROG HNO ID: [id number] Author: Sarwat Huddleston PA-C Service: Pain Management Author Type: Physician Crystallographer Type: Consult Progress Note Filed: 04/03/2022 8:39 [...] level is 7/10. TAPS Ropi 0.1% at 0/30/2?each 04/01/22 At this time she report most [...] appears comf (more content not included)... Normal [facility] CT ABD/PEL W IVCONon 022 CT ABD/PEL [...] Lower thorax: Visualized lung bases are clear. Strip Polisher (topogram) images: No additional findings. IMPRESSION: Postsurgical [...] collection is present in the lower pelvis Fur Coat Sewer: CAPRI Transcribe Date/Time: Apr 03 2022 9:00P Dictated by : SHELBY ESPINOSA MD This examination was interpreted and the report reviewed and electronically signed by: SHELBY ESPINOSA MD on Apr 03 2022 9:12PM EST [id number] [facility] Magnesium SerPl-mCncon 04-03 Magnesium [Mass/Vol] 1.6 mg/dL Low 1.7-2.3 [facility] Comment on above: Order Comment: Speci men Type: BLOOD SPECIMENOrdering Facility: [facility] Address: [address] [place], [place] [address] Performed By: #### B MP #### [place] [address] NURSING PROGon 04-03-2022 NURSING PROG HNO ID: [id number] Author: Annette Ford RN Service: ? Author Type: Registered Nurse Type: Nursing Progress Note Filed: 04/03/2022 9:39 PM Note Text: Nursing Progress Note Patient Name: Mary Leal Patient Location: [address] Daily Note: 2129: Pt declined to have all oral medications. They just go right through me. I cannot take them. . Made RN aware. This note was completed by: Annette Ford [facility] NURSING PROG HNO ID: [id number] Author: Dipti Crowley RN Service: Nursing Author Type: Registered Nurse Type: Nursing Progress Note Filed: 04/03/2022 2:51 PM Note Text: Nursing Progress Note Patient Name: [facility]al [facility]:Patient unable to tolerate powder form of potassium due to nausea. Patient unable to tolerate IV form, it feels like It's paralyzing my arm . Attempted to dilute boluses and lower rates with no success. SR paged with events ([phone]). Awaiting further orders. This note was completed [facility]: [id number] Author: Dipti Crowley RN Service: Nursing Author Type: Registered Nurse Type: Nursing Progress Note Filed: 04/03/2022 11:33 AM Note Text: Nursing Progress Note Patient Name: Mary Leal Patient Location: PK3B22/HZ1E-23 Daily Note: Patient Up independently in room and in hallway. IVF infusing as ordered. B/L Tap Blocks discontinued and removed by PA. Old ostomy dressing changed. Scant amount of drainage on dressing. Fresh ABD with tape applied. Transverse and lap sites PIPE ROLLER with glue. BS Hypoactive. No flatus per [...] monitor. This note was completed by: Dipti [facility] NURSING PROG HNO ID: [id number] Author: Chava Remy RN Service: PICC Team [...] 03, 2022 TIME: 8:37 AM PAGER/CONTACT #: [facility] NURSING PROG HNO ID: [id number] Author: Kev Leone RN Service: ? Author Type: Registered Nurse Type: Nursing Progress Note Filed: 04/03/2022 3:50 AM Note Text: Nursing Progress Note Patient Name: Mary Leal Patient Location: [place] [address]-22 Daily Note: 2100: Pt refusing all PO meds at this time, states she's concerned that she's not digesting them properly. Paan currently being controlled with bilateral blocks and PRN IV pain medication. This note was completed by: Kev Leone [facility] Phosphate SerPl-mCncon 04-03 Phosphate [Mass/Vol] 3.3 mg/dL Normal 2.7-4.8 [facility] Comment on above: Order Comment: Speci men Type: BLOOD SPECIMENOrdering Facility: [facility] Address: [address] [place] [phone] Performed By: #### B #### [place] [id number] ALLIED HEALTHon 04-02-2022 ALLIED HEALTH HNO ID: [id number] Author: RT Ban(R) Service: Radiology Author Type: [...] Ban(R) April 02, 2022 9:12 AM Normal [facility] CONSULT PROGon 04-02-2022 CONSULT PROG HNO ID: [id number] Author: Sarwat Huddleston PA-C Service: Pain Management Author Type: Physician Crystallographer Type: Consult Progress Note Filed: 04/02/2022 9:00 [...] 29.3 5 (more content not included)... Normal [facility] NURSING PROGon 04-02-2022 NURSING PROG HNO ID: [id number] Author: Dipti Crowley, RN Service: Nursing Author Type: Registered Nurse Type: Nursing Progress Note Filed: 04/02/2022 1:23 PM Note Text: Nursing Progress Note Patient Name: Mary Leal Patient Location: [address]/KX9D-65 Daily Note: Patient AANDOx3. VSS. RA POx. [...] This note was completed by: Dipti Crowley [facility] XR ABDOMEN 1V SUPINEon 04-02 XR [...] may be of help for further evaluation. Fur Coat Sewer: CAPRI Transcribe Date/Time: Apr 02 2022 9:16A Dictated by : JOAQUIN BRYANT MD This examination was interpreted and the report reviewed and electronically signed by: JOAQUIN BRYANT MD on Apr 02 2022 9:19AM EST [id number] Normal [facility] Basic metabolic 2000 panelon 04-01-2022 Anion gap [Moles/Vol] 9 mmol/L Normal 9-18 [facility] Comment on above: Order Comment: Speci men Type: BLOOD SPECIMENOrdering Facility: [facility] Address: [address] [place] [address] Performed By: #### B MP #### [place] [id number] Calcium [Mass/Vol] 7.9 mg/dL Low 8.5-10.2 [facility] Comment on above: Order Comment: Speci men Type: BLOOD SPECIMENOrdering Facility: [facility] Address: [address] [place] [address] Performed By: #### B MP #### [id number] Chloride [Moles/Vol] 106 mmol/L High 97-105 [facility] Comment on above: Order Comment: Speci men Type: BLOOD SPECIMENOrdering Facility: [facility] Address: [address] [place] [address] Performed By: #### B MP #### [id number] CO2 [Moles/Vol] 26 mmol/L Normal 22-30 [facility] Comment on above: Order Comment: Speci men Type: BLOOD SPECIMENOrdering Facility: [facility] Address: [address] [place] [address] Performed By: #### B MP #### [place] [id number] Creatinine [Mass/Vol] 0.68 mg/dL Normal 0.58-0.96 [facility] Comment on above: Order Comment: Speci men Type: BLOOD SPECIMENOrdering Facility: [facility] Address: [address] [place], [place] [address] Performed By: #### B MP #### [place] [id number] [place] [address] ESTIMATED GLOMERULAR FILTRATION RATE 107 mL/min/1.73m??? Normal >=60 [facility] Comment on above: Order Comment: Leanne harrison Type: BLOOD SPECIMENOrdering Facility: [facility] Address: [address] [place] [address] Result Comment: Mary mated Glomerular Filtration Rate [...] GFR. Performed By: #### B MP #### [place] [address] Glucose [Mass/Vol] 99 mg/dL Normal 74-99 [facility] Comment on above: Order Comment: Everetteamena terry Type: BLOOD SPECIMENOrdering Facility: [facility] Address: [address] [place] [address] Result Comment: The [place] [employer] (ADA) provides guidance for cutoff [...] Standards of Medical Care in Diabetes 2016, [place] [employer]. Diabetes Care. 2016.39(Suppl 1). Performed By: #### B MP #### [place] [id number] [place] [address] Potassium [Moles/Vol] 3.7 mmol/L Normal 3.7-5.1 [facility] Comment on above: Order Comment: Speci men Type: BLOOD SPECIMENOrdering Facility: [facility] Address: [address] [place] [address] Performed By: #### B MP #### [place] [id number] Sodium [Moles/Vol] 141 mmol/L Normal 136-144 [facility] Comment on above: Order Comment: Speci men Type: BLOOD SPECIMENOrdering Facility: [facility] Address: [address] [place] [address] Performed By: #### B MP #### [id number] Urea nitrogen [Mass/Vol] 4 mg/dL Low 7-21 [facility] Comment on above: Order Comment: Speci men Type: BLOOD SPECIMENOrdering Facility: [facility] Address: [address] [place] [address] Performed By: #### B MP #### [place] [id number] CBC panel Auto (Bld)on 04-01 Erythrocyte distribution width (RBC) [Ratio] 12.4 % Normal 11.5-15.0 [facility] Comment on above: Order Comment: Speci men Type: BLOOD SPECIMEN [facility] Address: [address] [place] [address] Performed By: #### 5 8410-2 #### [facility] CLIA [id number] [address] [place] [address] OF [facility] Hematocrit (Bld) [Volume fraction] 29.3 % Low 36.0-46.0 [facility] Comment on above: Order Comment: Speci men Type: BLOOD SPECIMEN [facility] Address: [address] [place] [address] Performed By: #### 5 8410-2 #### [facility] CLIA [id number] [address] [place] [address] [place] Hemoglobin (Bld) [Mass/Vol] 9.6 g/dL Low 11.5-15.5 [facility] Comment on above: Order Comment: Speci men Type: BLOOD SPECIMEN [facility] Address: [address] [place] [address] Performed By: #### 5 8410-2 #### [facility] CLIA [id number] [address] [place] [address] [place] MCH (RBC) [Entitic mass] 29.4 pg Normal 26.0-34.0 [facility] Comment on above: Order Comment: Speci men Type: BLOOD SPECIMEN [facility] Address: [address] [place] [address] Performed By: #### 5 8410-2 #### [facility] CLIA [id number] [address] [place] [address] [place] MCHC (RBC) [Mass/Vol] 32.8 g/dL Normal 30.5-36.0 [facility] Comment on above: Order Comment: Speci men Type: BLOOD SPECIMEN [facility] Address: [address] [place] [address] Performed By: #### 5 8410-2 #### [facility] CLIA [id number] [address] [place] [address] [place] MCV (RBC) [Entitic vol] 89.9 fL Normal 80.0-100.0 [facility] Comment on above: Order Comment: Speci men Type: BLOOD SPECIMEN [facility] Address: [address] [place] [address] Performed By: #### 5 8410-2 #### [facility] CLIA [id number] [address] [place] [address] [place] Nucleated RBC (Bld) [#/Vol] 10*3/uL Normal <0.01 [facility] Comment on above: Order Comment: Speci men Type: BLOOD SPECIMEN [facility] Address: [address] [place] [address] Performed By: #### 5 8410-2 #### [facility] CLIA [id number] [address] [place] [address] [place] Platelet mean volume (Bld) [Entitic vol] 8.9 fL Low 9.0-12.7 [facility] Comment on above: Order Comment: Speci men Type: BLOOD SPECIMEN [facility] Address: [address] [place] [address] Performed By: #### 5 8410-2 #### [facility] CLIA [id number] [address] [place] [address] [place] Platelets (Bld) [#/Vol] 282 10*3/uL Normal 150-400 [facility] Comment on above: Order Comment: Speci men Type: BLOOD SPECIMEN [facility] Address: [address] [place] [address] Performed By: #### 5 8410-2 #### [facility] CLIA [id number] [address] [place] [address] [place] RBC (Bld) [#/Vol] 3.26 10*6/uL Low 3.90-5.20 [facility] Comment on above: Order Comment: Speci men Type: BLOOD SPECIMEN [facility] Address: [address] [place] [address] Performed By: #### 5 8410-2 #### [facility] CLIA [id number] [address] [place] [address] [place] WBC (Bld) [#/Vol] 7.39 10*3/uL Normal 3.70-11.00 [facility] Comment on above: Order Comment: Speci men Type: BLOOD SPECIMEN [facility] Address: [address] [place] [address] Performed By: #### 5 8410-2 #### [facility] CLIA [id number] [address] [place] [address] [place] CONSULT PROGon 04-01-2022 CONSULT PROG HNO ID: [id number] Author: Joslyn Jain APRN.KWESI Service: Pain Management [...] 0.67 Sod (more content not included)... Normal [facility] Magnesium SerPl-mCncon 04-01 Magnesium [Mass/Vol] 1.7 mg/dL Normal 1.7-2.3 [facility] Comment on above: Order Comment: Speci men Type: BLOOD SPECIMENOrdering Facility: [facility] Address: [address] [place] [phone] Performed By: #### B MP #### [place] [address] NURSING PROGon 04-01-2022 NURSING PROG HNO ID: [id number] Author: Eagle Gu RN Service: ? Author Type: Registered Nurse Type: Nursing Progress Note Filed: 04/01/2022 9:56 PM Note Text: Nursing Progress Note Patient Name: Mary Leal Patient Location: [address]/UB5J-91 Daily Note:04/01/222038 Pt is alert and oriented x3. Surgical sites intact. Tap blocks x2 intact. Made SROC aware of Pt experiencing sharp/stabbing pain in abdomen, rating 9/10. SROC recommended use of PRN Dilaudid This note was completed by: [facility] NURSING PROG HNO ID: [id number] Author: Eagle Gu, RN Service: ? Author Type: Registered Nurse Type: Nursing Progress Note Filed: 04/01/2022 1:52 AM Note Text: Nursing Progress Note Patient Name: Mary Leal Patient Location: [place] [address]-22 Daily Note:03/31/222030 Pt is alert and oriented x3. Surgical sites intact. Nerve blocks x2 intact. This note was completed by: [facility] Phosphate SerPl-mCncon 04-01 Phosphate [Mass/Vol] 2.8 mg/dL Normal 2.7-4.8 [facility] Comment on above: Order Comment: Speci men Type: BLOOD SPECIMENOrdering Facility: [facility] Address: [address] [place] [address] Performed By: #### B MP #### [place] [address] Basic metabolic 2000 panelon 03-31-2022 Anion gap [Moles/Vol] 10 mmol/L Normal 9-18 [facility] Comment on above: Order Comment: Leanne men Type: BLOOD SPECIMEN [facility] Address: [address] [place] [address] Performed By: #### 5 8810-2 #### [facility] CLIA [id number] [address] [place] [address] [place] Calcium [Mass/Vol] 8.4 mg/dL Low 8.5-10.2 [facility] Comment on above: Order Comment: Speci men Type: BLOOD SPECIMEN [facility] Address: [address] [place] [address] Performed By: #### 5 8410-2 #### [facility] CLIA [id number] [address] [place] [address] [place] Chloride [Moles/Vol] 107 mmol/L High 97-105 [facility] Comment on above: Order Comment: Speci men Type: BLOOD SPECIMEN [facility] Address: [address] [place] [address] Performed By: #### 5 8410-2 #### [facility] CLIA [id number] [address] [place] [address] [place] CO2 [Moles/Vol] 23 mmol/L Normal 22-30 [facility] Comment on above: Order Comment: Speci men Type: BLOOD SPECIMEN [facility] Address: [address] [place] [address] Performed By: #### 5 8410-2 #### [facility] CLIA [id number] [address] [place] [address] [place] Creatinine [Mass/Vol] 0.67 mg/dL Normal 0.58-0.96 [facility] Comment on above: Order Comment: Speci men Type: BLOOD SPECIMEN [facility] Address: [address] [place] [address] Performed By: #### 5 8410-2 #### [facility] CLIA [id number] [address] [place] [address] [place] ESTIMATED GLOMERULAR FILTRATION RATE 107 mL/min/1.73m??? Normal >=60 [facility] Comment on above: Order Comment: Speci men Type: BLOOD SPECIMEN [facility] Address: [address] [place] [phone] Result Comment: Mary mated Glomerular Filtration Rate [...] #### 5 8410-2 #### [facility] CLIA [id number] [address] [place] [address] [place] Glucose [Mass/Vol] 84 mg/dL Normal 74-99 [facility] Comment on above: Order Comment: Leanne terry Type: BLOOD SPECIMEN [facility] Address: [address] [place] [address] Result Comment: The [place] [employer] (ADA) provides guidance for cutoff [...] Standards of Medical Care in Diabetes 2016, [place] Diabetes Association. Diabetes Care. 2016.39(Suppl 1). Performed By: #### 5 8410-2 #### [facility] CLIA [id number] [address] [place] [address] [place] Potassium [Moles/Vol] 3.8 mmol/L Normal 3.7-5.1 [facility] Comment on above: Order Comment: Leanne terry Type: BLOOD SPECIMEN Ordering Facility: [facility] Address: [address] [address] Performed By: #### 5 8410-2 #### [facility] CLIA [id number] [place] [address] [place] Sodium [Moles/Vol] 140 mmol/L Normal 136-144 [facility] Comment on above: Order Comment: Speci men Type: BLOOD SPECIMEN Ordering Facility: [facility] Address: [address] [place] [address] Performed By: #### 5 8410-2 #### [facility] CLIA [id number] [address] [place] [address] [place] Urea nitrogen [Mass/Vol] 11 mg/dL Normal 7-21 [facility] Comment on above: Order Comment: Speci men Type: BLOOD SPECIMEN Ordering Facility: [facility] Address: [address] [place] [address] Performed By: #### 5 8410-2 #### [facility] CLIA [id number] [address] [place] [address] [place] CBC W Auto Differential pane l (Bld)on 03-31-2022 Basophils (Bld) [#/Vol] 0.03 10*3/uL Normal <0.11 [facility] Comment on above: Order Comment: Speci men Type: BLOOD SPECIMEN Ordering Facility: [facility] Address: [address] [place] [address] Performed By: #### 5 7021-8 #### [facility] CLIA [id number] [address] [place] [address] [place] Basophils/100 WBC (Bld) 0.4 % Normal [facility] Comment on above: Order Comment: Speci men Type: BLOOD SPECIMEN Ordering Facility: [facility] Address: [address] [place] [address] Performed By: #### 5 7021-8 #### [facility] CLIA [id number] [address] [place] [address] [place] Differential cell count method Nom (Bld) Auto Normal [facility] Comment on above: Order Comment: Speci men Type: BLOOD SPECIMEN Ordering Facility: [facility] Address: [address] [place] [address] Performed By: #### 5 7021-8 #### [facility] CLIA [id number] [address] [place] [address] [place] Eosinophils (Bld) [#/Vol] 0.38 10*3/uL Normal <0.46 [facility] Comment on above: Order Comment: Speci men Type: BLOOD SPECIMEN Ordering Facility: [facility] Address: [address] [place] [address] Performed By: #### 5 7021-8 #### [facility] CLIA [id number] [address] [place] [address] [place] Eosinophils/100 WBC (Bld) 4.4 % Normal [facility] Comment on above: Order Comment: Speci men Type: BLOOD SPECIMEN Ordering Facility: [facility] Address: [address] [place] [address] Performed By: #### 5 7021-8 #### [facility] CLIA [id number] [address] [place] [address] [place] Erythrocyte distribution width (RBC) [Ratio] 12.6 % Normal 11.5-15.0 [facility] Comment on above: Order Comment: Speci men Type: BLOOD SPECIMEN Ordering Facility: [facility] Address: [address] [place] [address] Performed By: #### 5 7021-8 #### [facility] CLIA [id number] [address] [place] [address] [place] Hematocrit (Bld) [Volume fraction] 30.0 % Low 36.0-46.0 [facility] Comment on above: Order Comment: Speci men Type: BLOOD SPECIMEN Ordering Facility: [facility] Address: [address] [place] [address] Performed By: #### 5 7021-8 #### [facility] CLIA [id number] [address] [place] [address] [place] Hemoglobin (Bld) [Mass/Vol] 9.9 g/dL Low 11.5-15.5 [facility] Comment on above: Order Comment: Speci men Type: BLOOD SPECIMEN Ordering Facility: [facility] Address: [address] [place] [address] Performed By: #### 5 7021-8 #### [facility] CLIA [id number] [address] [place] [address] IMMATURE GRAN % 0.4 % Normal [facility] Comment on above: Order Comment: Speci men Type: BLOOD SPECIMEN Ordering Facility: [facility] Address: [address] [place] [address] Performed By: #### 5 7021-8 #### [facility] CLIA [id number] [address] [place] [address] IMMATURE GRAN ABS 0.03 k/uL Normal <0.10 [facility] Comment on above: Order Comment: Speci men Type: BLOOD SPECIMEN Ordering Facility: [facility] Address: [address] [place] [address] Performed By: #### 5 7021-8 #### [facility] CLIA [id number] [address] [place] [address] [place] Lymphocytes (Bld) [#/Vol] 1.24 10*3/uL Normal 1.00-4.00 [facility] Comment on above: Order Comment: Speci men Type: BLOOD SPECIMEN Ordering Facility: [facility] Address: [address] [place] [address] Performed By: #### 5 7021-8 #### [facility] CLIA [id number] [address] [place] [address] Lymphocytes/100 WBC (Bld) 14.5 % Normal [facility] Comment on above: Order Comment: Speci men Type: BLOOD SPECIMEN Ordering Facility: [facility] Address: [address] [place] [address] Performed By: #### 5 7021-8 #### [facility] CLIA [id number] [address] [place] [address] [place] MCH (RBC) [Entitic mass] 29.6 pg Normal 26.0-34.0 [facility] Comment on above: Order Comment: Speci men Type: BLOOD SPECIMEN Ordering Facility: [facility] Address: [address] [place] [address] Performed By: #### 5 7021-8 #### [facility] CLIA [id number] [address] [place] [address] [place] MCHC (RBC) [Mass/Vol] 33.0 g/dL Normal 30.5-36.0 [facility] Comment on above: Order Comment: Speci men Type: BLOOD SPECIMEN Ordering Facility: [facility] Address: [address] [place] [address] Performed By: #### 5 7021-8 #### [facility] CLIA [id number] [address] [place] [address] [place] MCV (RBC) [Entitic vol] 89.8 fL Normal 80.0-100.0 [facility] Comment on above: Order Comment: Speci men Type: BLOOD SPECIMEN Ordering Facility: [facility] Address: [address] [place] [address] Performed By: #### 5 7021-8 #### [facility] CLIA [id number] [address] [place] [address] [place] Monocytes (Bld) [#/Vol] 0.48 10*3/uL Normal <0.87 [facility] Comment on above: Order Comment: Speci men Type: BLOOD SPECIMEN Ordering Facility: [facility] Address: [address] [place] [address] Performed By: #### 5 7021-8 #### [facility] CLIA [id number] [address] [place] [address] [place] Monocytes/100 WBC (Bld) 5.6 % Normal [facility] Comment on above: Order Comment: Speci men Type: BLOOD SPECIMEN Ordering Facility: [facility] Address: [address] [place] [address] Performed By: #### 5 7021-8 #### [facility] CLIA [id number] [address] [place] [address] [place] Neutrophils (Bld) [#/Vol] 6.41 10*3/uL Normal 1.45-7.50 [facility] Comment on above: Order Comment: Speci men Type: BLOOD SPECIMEN Ordering Facility: [facility] Address: [address] [address] Performed By: #### 5 7021-8 #### [facility] CLIA [id number] [address] [place] [address] [place] Neutrophils/100 WBC (Bld) 74.7 % Normal [facility] Comment on above: Order Comment: Speci men Type: BLOOD SPECIMEN Ordering Facility: [facility] Address: [address] [place] [address] Performed By: #### 5 7021-8 #### [facility] CLIA [id number] [address] [place] [address] [place] Nucleated RBC (Bld) [#/Vol] 10*3/uL Normal <0.01 [facility] Comment on above: Order Comment: Speci men Type: BLOOD SPECIMEN Ordering Facility: [facility] Address: [address] [place] [address] Performed By: #### 5 7021-8 #### [facility] CLIA [id number] [address] [place] [address] [place] Nucleated RBC/100 WBC (Bld) [Ratio] 0.0 /100 WBC Normal [facility] Comment on above: Order Comment: Speci men Type: BLOOD SPECIMEN Ordering Facility: [facility] Address: [address] [place] [address] Performed By: #### 5 7021-8 #### [facility] CLIA [id number] [address] [place] [address] [place] Platelet mean volume (Bld) [Entitic vol] 9.0 fL Normal 9.0-12.7 [facility] Comment on above: Order Comment: Speci men Type: BLOOD SPECIMEN Ordering Facility: [facility] Address: [address] [place] [address] Performed By: #### 5 7021-8 #### [facility] CLIA [id number] [address] [place] [address] [place] Platelets (Bld) [#/Vol] 246 10*3/uL Normal 150-400 [facility] Comment on above: Order Comment: Speci men Type: BLOOD SPECIMEN Ordering Facility: [facility] Address: [address] [place] [address] Performed By: #### 5 7021-8 #### [facility] CLIA [id number] [address] [place] [address] [place] RBC (Bld) [#/Vol] 3.34 10*6/uL Low 3.90-5.20 [facility] Comment on above: Order Comment: Speci men Type: BLOOD SPECIMEN Ordering Facility: [facility] Address: [address] [place] [address] Performed By: #### 5 7021-8 #### [facility] CLIA [id number] [address] [place] [address] [place] WBC (Bld) [#/Vol] 8.57 10*3/uL Normal 3.70-11.00 [facility] Comment on above: Order Comment: Speci men Type: BLOOD SPECIMEN Ordering Facility: [facility] Address: [address] [place] [address] Performed By: #### 5 7021-8 #### [facility] CLIA [id number] [address] [place] [address] OF [facility] CONSULT PROGon 03-31-2022 CONSULT PROG HNO ID: [id number] Author: Joslyn Jain APRN.CHILD DAY CARE PROVIDER Service: Pain Management Author Type: Nurse Practitioner [...] and solution: Yes. Solution Ropivacaine 0.2%, rate 0/ ml/hr. Adjuvant Pain Medication: See below. Current [...] AND U (more content not included)... Normal [facility] Magnesium SerPl-mCncon 03-31 Magnesium [Mass/Vol] 1.6 mg/dL Low 1.7-2.3 [facility] Comment on above: Order Comment: Speci men Type: BLOOD SPECIMEN Ordering Facility: [facility] Address: [address] [place] [address] Performed By: #### 5 8410-2 #### [facility] CLIA [id number] [address] [place] [address] OF [facility] NURSING PROGon 03-31-2022 NURSING PROG HNO ID: [id number] Author: Daisy Amaya RN Service: Nursing Author Type: Registered Nurse Type: Nursing Progress Note Filed: 03/31/2022 4:56 PM Note Text: Nursing Progress Note Patient Name: Mary Leal Patient Location: [place] [address]/CV4U-01 Daily Note: 0931- Pt A+Ox3. Up with standby assist. Ambulated pod multiple times. Laps intact. Old ostomy site WNL. Pt having liquid brown BMs. Voiding adq. No nausea, cp, or sob. Taps infusing per JAN. Pain controlled with PRN oxy. No further needs at this time. This note was completed by: Daisy Amaya [facility] NURSING PROG HNO ID: [id number] Author: Mariluz Carnes, RN Service: Nursing Author Type: Registered Nurse Type: Nursing Progress Note Filed: 03/30/2022 11:47 PM Note Text: Nursing Progress Note Patient Name: Mary Leal Patient Location: [address]/PL6F-56 Daily Note: Pt's BP 90/52. Patient asymptomatic. Surgery made aware. Order in for [place] LR 500CC's. This note was completed by: Mariluz Carnes [facility] Phosphate SerPl-mCncon 03-31 Phosphate [Mass/Vol] 2.7 mg/dL Normal 2.7-4.8 [facility] Comment on above: Order Comment: Speci men Type: BLOOD SPECIMEN Ordering Facility: [facility] Address: [address] [place] [address] Performed By: #### 5 8410-2 #### [facility] CLIA [id number] [address] [place] [address] [place] Basic metabolic 2000 panelon 03-30-2022 Anion gap [Moles/Vol] 10 mmol/L Normal 9-18 [facility] Comment on above: Order Comment: Speci men Type: BLOOD SPECIMEN Ordering Facility: [facility] Address: [address] [place] [address] Performed By: #### 1 9123-9, 2777-1, 56514-1 #### [facility] CLIA [id number] [address] [place] [address] [place] Calcium [Mass/Vol] 8.5 mg/dL Normal 8.5-10.2 [facility] Comment on above: Order Comment: Speci men Type: BLOOD SPECIMEN Ordering Facility: [facility] Address: [address] [place], [place] [address] Performed By: #### 1 9123-9, 2777-1, 45807-8 #### [facility] CLIA [id number] [address] [place] [address] [place] Chloride [Moles/Vol] 103 mmol/L Normal 97-105 [facility] Comment on above: Order Comment: Speci men Type: BLOOD SPECIMEN Ordering Facility: [facility] Address: [address] [place] [address] Performed By: #### 1 9123-9, 2777-, 39543-3 #### [facility] CLIA [id number] [address] [place] [address] [place] CO2 [Moles/Vol] 24 mmol/L Normal 22-30 [facility] Comment on above: Order Comment: Speci men Type: BLOOD SPECIMEN Ordering Facility: [facility] Address: [address] [place] [address] Performed By: #### 1 9123-9, 2777-, 40694-2 #### [facility] CLIA [id number] [address] [place] [address] [place] Creatinine [Mass/Vol] 0.69 mg/dL Normal 0.58-0.96 [facility] Comment on above: Order Comment: Speci men Type: BLOOD SPECIMEN Ordering Facility: [facility] Address: [address] [place] [address] Performed By: #### 1 9123-9, 2777-, 05359-2 #### [facility] CLIA [id number] [address] [place] [address] [place] ESTIMATED GLOMERULAR FILTRATION RATE 107 mL/min/1.73m??? Normal >=60 [facility] Comment on above: Order Comment: Speci men Type: BLOOD SPECIMEN Ordering Facility: [facility] Address: [address] [place] [address] Result Comment: Mary mated Glomerular Filtration Rate [...] GFR. Performed By: #### 1 9123-9, 2777-, 76876-4 #### [facility] CLIA [id number] [address] [place] [address] [place] Glucose [Mass/Vol] 117 mg/dL High 74-99 [facility] Comment on above: Order Comment: Leanne terry Type: BLOOD SPECIMEN Ordering Facility: [facility] Address: [address] [place] [address] Result Comment: The [place] Diabetes Association (ADA) provides guidance for cutoff [...] Standards of Medical Care in Diabetes 2016, [place] [employer]. Diabetes Care. 2016.39(Suppl 1). Performed By: #### 1 9123-9, 2776-11, 06753-4 #### [facility] CLIA [id number] [address] [place] [address] [place] Potassium [Moles/Vol] 3.9 mmol/L Normal 3.7-5.1 [facility] Comment on above: Order Comment: Leanne terry Type: BLOOD SPECIMEN Ordering Facility: [facility] Address: [address] [place] [address] Performed By: #### 1 9123-9, 27705-06, 23158-6 #### [facility] CLIA [id number] [address] [id number] [place] Sodium [Moles/Vol] 137 mmol/L Normal 136-144 [facility] Comment on above: Order Comment: Speci men Type: BLOOD SPECIMEN Ordering Facility: [facility] Address: [address] [place] [address] Performed By: #### 1 9123-9, 2777-1, 21033-1 #### [facility] CLIA [id number] [address] [place] [address] [place] Urea nitrogen [Mass/Vol] 13 mg/dL Normal 7-21 [facility] Comment on above: Order Comment: Speci men Type: BLOOD SPECIMEN Ordering Facility: [facility] Address: [address] [place] [address] Performed By: #### 1 9123-9, 2777, 74375-2 #### [facility] CLIA [id number] [address] [place] [address] [place] CBC panel Auto (Bld)on 03-30 Erythrocyte distribution width (RBC) [Ratio] 12.8 % Normal 11.5-15.0 [facility] Comment on above: Order Comment: Speci men Type: BLOOD SPECIMEN Ordering Facility: [facility] Address: [address] [place] [address] Performed By: #### 5 8410-2 #### [facility] CLIA [id number] [address] [place] [address] [place] Hematocrit (Bld) [Volume fraction] 35.0 % Low 36.0-46.0 [facility] Comment on above: Order Comment: Speci men Type: BLOOD SPECIMEN Ordering Facility: [facility] Address: [address] [place] [address] Performed By: #### 5 8410-2 #### [facility] CLIA [id number] [address] [place] [address] [place] Hemoglobin (Bld) [Mass/Vol] 11.8 g/dL Normal 11.5-15.5 [facility] Comment on above: Order Comment: Speci men Type: BLOOD SPECIMEN Ordering Facility: [facility] Address: [address] [place] [address] Performed By: #### 5 8410-2 #### [facility] CLIA [id number] [address] [place] [address] MCH (RBC) [Entitic mass] 30.6 pg Normal 26.0-34.0 [facility] Comment on above: Order Comment: Speci men Type: BLOOD SPECIMEN Ordering Facility: [facility] Address: [address] [place] [address] Performed By: #### 5 8410-2 #### [facility] CLIA [id number] [address] [place] [address] STATES [facility] MCHC (RBC) [Mass/Vol] 33.7 g/dL Normal 30.5-36.0 [facility] Comment on above: Order Comment: Speci men Type: BLOOD SPECIMEN Ordering Facility: [facility] Address: [address] [place] [address] Performed By: #### 5 8410-2 #### [facility] CLIA [id number] [address] [place] [address] MCV (RBC) [Entitic vol] 90.7 fL Normal 80.0-100.0 [facility] Comment on above: Order Comment: Speci men Type: BLOOD SPECIMEN Ordering Facility: [facility] Address: [address] [place] [address] Performed By: #### 5 8410-2 #### [facility] CLIA [id number] [address] [place] [address] Nucleated RBC (Bld) [#/Vol] 10*3/uL Normal <0.01 [facility] Comment on above: Order Comment: Speci men Type: BLOOD SPECIMEN Ordering Facility: [facility] Address: [address] [place] [address] Performed By: #### 5 8410-2 #### [facility] CLIA [id number] [address] [place] [address] [place] Platelet mean volume (Bld) [Entitic vol] 8.9 fL Low 9.0-12.7 [facility] Comment on above: Order Comment: Speci men Type: BLOOD SPECIMEN Ordering Facility: [facility] Address: [address] [place] [address] Performed By: #### 5 8410-2 #### [facility] CLIA [id number] [address] [place] [address] [place] Platelets (Bld) [#/Vol] 293 10*3/uL Normal 150-400 [facility] Comment on above: Order Comment: Speci men Type: BLOOD SPECIMEN Ordering Facility: [facility] Address: [address] [place] [address] Performed By: #### 5 8410-2 #### [facility] CLIA [id number] [address] [place] [address] [place] RBC (Bld) [#/Vol] 3.86 10*6/uL Low 3.90-5.20 [facility] Comment on above: Order Comment: Speci men Type: BLOOD SPECIMEN Ordering Facility: [facility] Address: [address] [place] [address] Performed By: #### 5 8410-2 #### [facility] CLIA [id number] [address] [place] [address] [place] WBC (Bld) [#/Vol] 11.25 10*3/uL High 3.70-11.00 [facility] Comment on above: Order Comment: Speci men Type: BLOOD SPECIMEN Ordering Facility: [facility] Address: [address] [place] [address] Performed By: #### 5 8410-2 #### [facility] CLIA [id number] [address] [place] [address] OF [place] CONSULT PROGon 03-30-2022 CONSULT PROG HNO ID: [id number] Author: Joslyn Jain APRN.CHILD DAY CARE PROVIDER Service: Pain Management Author Type: Nurse Practitioner [...] eGFR >= (more content not included)... Normal [facility] Magnesium SerPl-mCncon 03-30 Magnesium [Mass/Vol] 1.6 mg/dL Low 1.7-2.3 [facility] Comment on above: Order Comment: Speci men Type: BLOOD SPECIMEN Ordering Facility: [facility] Address: [address] [place] [address] Performed By: #### 1 9123-9, 2777-1, 49920-7 #### [facility] CLIA [id number] [address] [place] [address] [place] Phosphate SerPl-mCncon 03-30 Phosphate [Mass/Vol] 2.9 mg/dL Normal 2.7-4.8 [facility] Comment on above: Order Comment: Speci men Type: BLOOD SPECIMEN Ordering Facility: [facility] Address: [address] [place] [address] Performed By: #### 1 9123-9, 2777-1, 04623-8 #### [facility] CLIA [id number] [address] [place] [address] [place] ANES POSTPROC EVALon 022 ANES POSTPROC EVAL HNO ID: [id number] Author: Nathanael Craig DO Service: Anesthesiology Author [...] March 29, 2022 TIME: 8:29 AM CSN: [id number] Normal [facility] Basic metabolic 2000 panelon 03-29-2022 Anion gap [Moles/Vol] 9 mmol/L Normal 9-18 [facility] Comment on above: Order Comment: Speci men Type: BLOOD SPECIMEN Ordering Facility: [facility] Address: [address] [place] [address] Performed By: #### 5 8410-2 #### [facility] CLIA [id number] [address] [place] [address] [place] Calcium [Mass/Vol] 7.9 mg/dL Low 8.5-10.2 [facility] Comment on above: Order Comment: Speci men Type: BLOOD SPECIMEN Ordering Facility: [facility] Address: [address] [place] [address] Performed By: #### 5 8410-2 #### [facility] CLIA [id number] [address] [place] [address] [place] Chloride [Moles/Vol] 105 mmol/L Normal 97-105 [facility] Comment on above: Order Comment: Speci men Type: BLOOD SPECIMEN Ordering Facility: [facility] Address: [address] [place] [address] Performed By: #### 5 8410-2 #### [facility] CLIA [id number] [address] [place] [address] [place] CO2 [Moles/Vol] 24 mmol/L Normal 22-30 [facility] Comment on above: Order Comment: Speci men Type: BLOOD SPECIMEN Ordering Facility: [facility] Address: [address] [place] [address] Performed By: #### 5 8410-2 #### [facility] CLIA [id number] [address] [place] [address] [place] Creatinine [Mass/Vol] 0.70 mg/dL Normal 0.58-0.96 [facility] Comment on above: Order Comment: Speci men Type: BLOOD SPECIMEN Ordering Facility: [facility] Address: [address] [place] [address] Performed By: #### 5 8410-2 #### [facility] CLIA [id number] [address] [place] [address] [place] ESTIMATED GLOMERULAR FILTRATION RATE 106 mL/min/1.73m??? Normal >=60 [facility] Comment on above: Order Comment: Speci men Type: BLOOD SPECIMEN Ordering Facility: [facility] Address: [address] [place] [address] Result Comment: Mary mated Glomerular Filtration Rate [...] GFR. Performed By: #### 5 8410-2 #### [facility] CLIA [id number] [place] [address] [place] Glucose [Mass/Vol] 92 mg/dL Normal 74-99 [facility] Comment on above: Order Comment: Speci men Type: BLOOD SPECIMEN Ordering Facility: [facility] Address: [address] [place] [address] Result Comment: The [place] Diabetes Association (ADA) provides guidance for cutoff [...] Standards of Medical Care in Diabetes 2016, [place] Diabetes Association. Diabetes Care. 2016.39(Suppl 1). Performed By: #### 5 8410-2 #### [facility] CLIA [id number] [address] [place] [address] [place] Potassium [Moles/Vol] 4.1 mmol/L Normal 3.7-5.1 [facility] Comment on above: Order Comment: Everettei men Type: BLOOD SPECIMEN Ordering Facility: [facility] Address: [address] [id number] Performed By: #### 5 8410-2 #### [facility] CLIA [id number] [address] [place] [address] [place] Sodium [Moles/Vol] 138 mmol/L Normal 136-144 [facility] Comment on above: Order Comment: Speci men Type: BLOOD SPECIMEN Ordering Facility: [facility] Address: [address] [place] [address] Performed By: #### 5 8410-2 #### [facility] CLIA [id number] [address] [place] [address] [place] [facility] Urea nitrogen [Mass/Vol] 12 mg/dL Normal 7-21 [facility] Comment on above: Order Comment: Speci men Type: BLOOD SPECIMEN Ordering Facility: [facility] Address: [address] [place] [address] Performed By: #### 5 8410-2 #### [facility] CLIA [id number] [address] [place] [address] [place] CBC W Auto Differential pane l (Bld)on 03-29-2022 Basophils (Bld) [#/Vol] 0.04 10*3/uL Normal <0.11 [facility] Comment on above: Order Comment: Speci men Type: BLOOD SPECIMEN Ordering Facility: [facility] Address: [address] [place] [address] Performed By: #### 5 7021-8 #### [facility] CLIA [id number] [address] [place] [address] [place] Basophils/100 WBC (Bld) 0.6 % Normal [facility] Comment on above: Order Comment: Speci men Type: BLOOD SPECIMEN Ordering Facility: [facility] Address: [address] [place] [address] Performed By: #### 5 7021-8 #### [facility] CLIA [id number] [address] [place] [address] [place] Differential cell count method Nom (Bld) Auto Normal [facility] Comment on above: Order Comment: Speci men Type: BLOOD SPECIMEN Ordering Facility: [facility] Address: [address] [place] [address] Performed By: #### 5 7021-8 #### [facility] CLIA [id number] [address] [place] [address] [place] Eosinophils (Bld) [#/Vol] 0.16 10*3/uL Normal <0.46 [facility] Comment on above: Order Comment: Speci men Type: BLOOD SPECIMEN Ordering Facility: [facility] Address: [address] [place] [address] Performed By: #### 5 7021-8 #### [facility] CLIA [id number] [address] [place] [address] [place] Eosinophils/100 WBC (Bld) 2.3 % Normal [facility] Comment on above: Order Comment: Speci men Type: BLOOD SPECIMEN Ordering Facility: [facility] Address: [address] [place] [address] Performed By: #### 5 7021-8 #### [facility] CLIA [id number] [address] [place] [address] [place] Erythrocyte distribution width (RBC) [Ratio] 12.8 % Normal 11.5-15.0 [facility] Comment on above: Order Comment: Speci men Type: BLOOD SPECIMEN Ordering Facility: [facility] Address: [address] [place] [address] Performed By: #### 5 7021-8 #### [facility] CLIA [id number] [address] [place] [address] [place] Hematocrit (Bld) [Volume fraction] 32.3 % Low 36.0-46.0 [facility] Comment on above: Order Comment: Speci men Type: BLOOD SPECIMEN Ordering Facility: [facility] Address: [address] [place] [address] Performed By: #### 5 7021-8 #### [facility] CLIA [id number] [address] [place] [address] [place] Hemoglobin (Bld) [Mass/Vol] 10.7 g/dL Low 11.5-15.5 [facility] Comment on above: Order Comment: Speci men Type: BLOOD SPECIMEN Ordering Facility: [facility] Address: [address] [place] [address] Performed By: #### 5 7021-8 #### [facility] CLIA [id number] [address] [place] [address] [place] IMMATURE GRAN % 0.3 % Normal [facility] Comment on above: Order Comment: Speci men Type: BLOOD SPECIMEN Ordering Facility: [facility] Address: [address] [place] [address] Performed By: #### 5 7021-8 #### [facility] CLIA [id number] [address] [place] [address] IMMATURE GRAN ABS <0.03 Normal <0.10 [facility] Comment on above: Order Comment: Speci men Type: BLOOD SPECIMEN Ordering Facility: [facility] Address: [address] [place] [address] Performed By: #### 5 7021-8 #### [facility] CLIA [id number] [address] [place] [address] Lymphocytes (Bld) [#/Vol] 1.39 10*3/uL Normal 1.00-4.00 [facility] Comment on above: Order Comment: Speci men Type: BLOOD SPECIMEN Ordering Facility: [facility] Address: [address] [place] [address] Performed By: #### 5 7021-8 #### [facility] CLIA [id number] [address] [place] [address] Lymphocytes/100 WBC (Bld) 19.7 % Normal [facility] Comment on above: Order Comment: Speci men Type: BLOOD SPECIMEN Ordering Facility: [facility] Address: [address] [place] [address] Performed By: #### 5 7021-8 #### [facility] CLIA [id number] [address] [place] [address] [place] MCH (RBC) [Entitic mass] 29.8 pg Normal 26.0-34.0 [facility] Comment on above: Order Comment: Speci men Type: BLOOD SPECIMEN Ordering Facility: [facility] Address: [address] [place] [address] Performed By: #### 5 7021-8 #### [facility] CLIA [id number] [address] [place] [address] [place] MCHC (RBC) [Mass/Vol] 33.1 g/dL Normal 30.5-36.0 [facility] Comment on above: Order Comment: Speci men Type: BLOOD SPECIMEN Ordering Facility: [facility] Address: [address] [place] [address] Performed By: #### 5 7021-8 #### [facility] CLIA [id number] [address] [place] [address] [place] MCV (RBC) [Entitic vol] 90.0 fL Normal 80.0-100.0 [facility] Comment on above: Order Comment: Speci men Type: BLOOD SPECIMEN Ordering Facility: [facility] Address: [address] [place] [address] Performed By: #### 5 7021-8 #### [facility] CLIA [id number] [address] [place] [address] [place] Monocytes (Bld) [#/Vol] 0.55 10*3/uL Normal <0.87 [facility] Comment on above: Order Comment: Speci men Type: BLOOD SPECIMEN Ordering Facility: [facility] Address: [address] [place] [address] Performed By: #### 5 7021-8 #### [facility] CLIA [id number] [address] [place] [address] [place] Monocytes/100 WBC (Bld) 7.8 % Normal [facility] Comment on above: Order Comment: Speci men Type: BLOOD SPECIMEN Ordering Facility: [facility] Address: [address] [place] [address] Performed By: #### 5 7021-8 #### [facility] CLIA [id number] [address] [place] [address] [place] Neutrophils (Bld) [#/Vol] 4.88 10*3/uL Normal 1.45-7.50 [facility] Comment on above: Order Comment: Speci men Type: BLOOD SPECIMEN Ordering Facility: [facility] Address: [address] [place] [address] Performed By: #### 5 7021-8 #### [facility] CLIA [id number] [address] [place] [address] [place] Neutrophils/100 WBC (Bld) 69.3 % Normal [facility] Comment on above: Order Comment: Speci men Type: BLOOD SPECIMEN Ordering Facility: [facility] Address: [address] [place] [address] Performed By: #### 5 7021-8 #### [facility] CLIA [id number] [address] [place] [address] [place] Nucleated RBC (Bld) [#/Vol] 10*3/uL Normal <0.01 [facility] Comment on above: Order Comment: Speci men Type: BLOOD SPECIMEN Ordering Facility: [facility] Address: [address] [place] [address] Performed By: #### 5 7021-8 #### [facility] CLIA [id number] [address] [place] [address] [place] Nucleated RBC/100 WBC (Bld) [Ratio] 0.0 /100 WBC Normal [facility] Comment on above: Order Comment: Speci men Type: BLOOD SPECIMEN Ordering Facility: [facility] Address: [address] [place] [address] Performed By: #### 5 7021-8 #### [facility] CLIA [id number] [address] [place] [address] [place] Platelet mean volume (Bld) [Entitic vol] 9.0 fL Normal 9.0-12.7 [facility] Comment on above: Order Comment: Speci men Type: BLOOD SPECIMEN Ordering Facility: [facility] Address: [address] [place] [address] Performed By: #### 5 7021-8 #### [facility] CLIA [id number] [address] [place] [address] [place] Platelets (Bld) [#/Vol] 241 10*3/uL Normal 150-400 [facility] Comment on above: Order Comment: Speci men Type: BLOOD SPECIMEN Ordering Facility: [facility] Address: [address] [place] [address] Performed By: #### 5 7021-8 #### [facility] CLIA [id number] [address] [place] [address] [place] RBC (Bld) [#/Vol] 3.59 10*6/uL Low 3.90-5.20 [facility] Comment on above: Order Comment: Speci men Type: BLOOD SPECIMEN Ordering Facility: [facility] Address: [address] [place] [address] Performed By: #### 5 7021-8 #### [facility] CLIA [id number] [address] [place] [address] [place] WBC (Bld) [#/Vol] 7.04 10*3/uL Normal 3.70-11.00 [facility] Comment on above: Order Comment: Speci men Type: BLOOD SPECIMEN Ordering Facility: [facility] Address: [address] [place] [address] Performed By: #### 5 7021-8 #### [facility] [place] [id number] [address] OF [facility] CONSULT PROGon 03-29-2022 CONSULT PROG HNO ID: [id number] Author: Joslyn Jain APRN.CHILD DAY CARE PROVIDER Service: Pain Management Author Type: Nurse Practitioner [...] is on liq diet, currently on Dilaudid GRINDER AND PLATER at 0/0.2/10/6 last 2 hours 8/22 bolus utilized PLAN/Recs: 1. Increased TAPS X 2 to 0//30/2 each 2. Continue pain regimen per primary [...] No Relieved: Yes - NOW with increase GRINDER AND PLATER and Repositioning and GRINDER AND PLATER Is patient satisfied with pain control: Yes [...] mL PERIPHERAL NERVE CATHETER CONTINUOUS - HYDROmorphone GRINDER AND PLATER 0.5 mg/mL in NaCl 0.9% 100 mL [...] % 69.3 (more content not included)... Normal [facility] Magnesium SerPl-mCncon 03-29 Magnesium [Mass/Vol] 1.4 mg/dL Low 1.7-2.3 [facility] Comment on above: Order Comment: Speci men Type: BLOOD SPECIMEN Ordering Facility: [facility] Address: [address] [place] [address] Performed By: #### 5 8410-2 #### [facility] CLIA [id number] [place] [address] NURSING PROGon 03-29-2022 NURSING PROG HNO ID: [id number] Author: Dipti Crowley RN Service: Nursing Author Type: Registered Nurse Type: Nursing Progress Note Filed: 03/29/2022 2:00 PM Note Text: Nursing Progress Note Patient Name: Mary Leal Patient Location: [place] [address] Daily Note: Patient VSS. RA POx. Pain level better controlled now that GRINDER AND PLATER initiated. B/L Ropivacaine Tap Blocks with dressings [...] This note was completed by: Dipti Crowley [facility] NURSING PROG HNO ID: [id number] Author: Kev Leone RN Service: ? Author Type: Registered Nurse Type: Nursing Progress Note Filed: 03/29/2022 3:53 AM Note Text: Nursing Progress Note Patient Name: Mary Leal Patient Location: [address]/HF2L-98 Daily Note: 0350: Pt states she is in 10/10 pain, pt has no PO pain meds ordered, page sent to surgery resident This note was completed by: Kev Leone [facility] PT EDon 03-29-2022 PT ED HNO ID: [id number] Author: Merced Morales DTR Service: Nutrition Therapy Author Type: Senior Network Architect Type: Patient Education Filed: 03/29/2022 11:05 AM [...] March 29, 2022 TIME: 11:04 AM PAGER: [facility] Phosphate SerPl-mCncon 03-29 Phosphate [Mass/Vol] 2.9 mg/dL Normal 2.7-4.8 [facility] Comment on above: Order Comment: Speci men Type: BLOOD SPECIMEN Ordering Facility: [facility] Address: [address] [id number] Performed By: #### 5 8410-2 #### [facility] CLIA [id number] [address] [place] [address] [place] ANES PRE-OPon 03-28-2022 ANES PRE-OP HNO ID: [id number] Author: Anibal Bertarnd MD Service: Anesthesiology Author Type: Anesthesiologist Type: [...] LUNGS every 4 hours if needed - tkruzrorqss-fbdsbozhp-wwx anter (TRELEGY ELLIPTA) 100-62.5-25 mcg Inhale 1 [...] (FLONASE) 50 mcg/actuation nasal spray Use 1 Kinsley in each nostril on (more content not included)... [facility] BRIEF OP NOTon 03-28-2022 BRIEF OP NOT HNO ID: [id number] Author: Nita Lamas MD Service: Colorectal Author Type: Fellow Type: Brief Op Note Filed: 03/28/2022 3:43 PM Note Text: BRIEF OPERATIVE NOTE - COLORECTAL SURGERY Log ID: [id number] Surgery/Procedure Date: 03/28/2022 Incision/Procedure Start Time: 9:47 AM Incision Close/Procedure End Time: 3:40 PM Surgeon(s) and Crystallographer(s): Surgeon(s) and Role: * Mary Obrien MD [...] DATE: March 28, 2022 TIME: 3:42 PM [facility] NURSING PROGon 03-28-2022 NURSING PROG HNO ID: [id number] Author: Merced Lay RN Service: ? Author Type: Registered Nurse Type: Nursing Progress Note Filed: 03/28/2022 6:56 PM Note Text: Nursing Progress Note Patient Name: Mary Leal Patient Location: [place] [address] [address] Transfer Note: Patient transferred into room/unit PK3B22 in stable condition. Actions taken: No futher actions taken at this time. Will continue to monitor and check with patient. Paged surgical team. Pt has TAP blocks, but orders were discontinued from PACU. New orders for blocks need to be placed in eMAR. Awaiting call back or orders. This note was completed by: Merced Lay [facility] NURSING PROG HNO ID: [id number] Author: Monica Nicole RN Service: Nursing Author Type: Registered Nurse Type: Nursing Progress Note Filed: 03/28/2022 6:35 PM Note Text: Nursing Progress Note Patient Name: Mary Leal Patient Location: [place] [facility] OR POOL Daily Note: 0: Dr. Novak notified of patients increase in heart rate from arrival to post op. Patient HR now maintaining in the 120s. 1830: assistant to the vice president rounding at patient bedside. Dressing and abdomen assessed- drainage to be expected on island dressing. Notified him of patients HR running high and notified that patient normally takes 50mg atenolol but held today for surgery. Patient's pain managed and other VS stable at this time. assistant to the vice president is OK with patient going to regular nursing floor at this time. Family updated. This note was completed by: Monica Nicole [facility] NURSING PROG HNO ID: [id number] Author: Vianney Chacon RN Service: Nursing Author [...] (RECOMMENDATION): None Electronically Signed By: Vianney Chacon [facility] OPERATIVE NOon 03-28-2022 OPERATIVE NO HNO ID: [id number] Author: Mary Obrien MD Service: Colorectal Author Type: Physician Type: Operative Report Filed: 03/28/2022 5:06 PM Note Text: COLON AND RECTAL SURGERY OPERATIVE REPORT PATIENT NAME: Mary Leal ADMISSION DATE: 03/28/2022 LOG ID: [id number] SURGERY/PROCEDURE DATE: 03/28/2022 INCISION/PROCEDURE START TIME: 9:47 AM INCISION CLOSE/PROCEDURE END TIME: 3:40 PM AGE: [age] year old SEX: female SURGEON(S)/PROCEDURALIST( S) AND DYE LAB TECHNICIAN(S): Surgeon(s) and Role: * Mary Obrien MD [...] The abdome (more content not included)... Normal [facility] SURGICAL PATHOLOGYon CASE REPORT Normal [facility] Comment on above: Order Comment: Speci men Type: BLOOD SPECIMEN Ordering Facility: [facility] Address: [address] [place] [address] Result Comment: Surg ica Pathology Report Case: [id number] Authorizing Provider: Mary Obrien MD Collected: 03/28/2022 01:43 PM Ordering Location: [facility] Received: 03/28/2022 04:10 PM Operating Room Pathologist: Areli Rodriguez MD Specimen: COLON RESECTION, terminal ileum with ileostomy Performed By: #### 5 7021-8 #### [facility] CLIA [id number] [address] CLINICAL HISTORY ILEORECTAL ANASTOMOS IS, TAKEDOWN OF ILEOSTOMY Normal [facility] Comment on above: Order Comment: Speci men Type: BLOOD SPECIMEN Ordering Facility: [facility] Address: [address] [place] [address] Performed By: #### 5 7021-8 #### [facility] CLIA [id number] [address] DIAGNOSIS COMMENT The histologic findi ngs [...] of associated inflammation or infectious organisms. Normal [facility] Comment on above: Order Comment: Speci men Type: BLOOD SPECIMEN Ordering Facility: [facility] Address: [address] [place] [address] Performed By: #### 5 7021-8 #### [facility] CLIA [id number] [address] FINAL DIAGNOSIS Normal [facility] Comment on above: Order Comment: Speci men Type: BLOOD SPECIMEN Ordering Facility: [facility] Address: [address] [place] [address] Result Comment: [place] n and terminal ileum with ileostomy, resection: - Colon with patchy active colitis, submucosal fibrosis, acute serositis, and fibrovascular adhesions (see comment). - Small bowel with focal transmural defect, acute serositis, fibrovascular adhesions, and changes consistent with ileostomy site. - Benign lymph nodes. JEL 03/31/2022 Performed By: #### 5 7021-8 #### [facility] CLIA [id number] [address] FINAL PERFORMING LAB Normal [facility] Comment on above: Order Comment: Speci men Type: BLOOD SPECIMEN Ordering Facility: [facility] Address: [address] [place], [place] [address] Result Comment: Diag nostic interpretation performed at [facility], [address] [place] [address] CLIA# [id number] Service Officer: Joshua Anderson M.D. Performed By: #### 5 7021-8 #### [facility] CLIA [id number] [address] [place] [address] GROSS DESCRIPTION Normal [facility] Comment on above: Order Comment: Speci men Type: BLOOD SPECIMEN Ordering Facility: [facility] Address: [address] [place] [address] Result Comment: A. C OLON RESECTION. Received [...] diverticula. The serosa is jaimes-pink and smooth. [place] Warden sections are submitted from distal to proximal [...] 2022 9:53 AM Gross examination performed at [facility], [address] [place] [address] CLIA # [id number] Performed By: #### 5 7021-8 #### [facility] CLIA [id number] [address] [place] [address] [place] Q - CBC W/DIFF AND PLTon BASOABS 59 cells/uL Normal 0-200 [facility] Comment on above: Order Comment: [facility] performed at: QPT, [facility], [address] [place] [address], [address] [place] [address], [phone], Service Officer: Gopal Hamilton MD [facility] Collection Date/Time: [id number] [facility] Results Received Date/Time: [facility] Reported Date/Time: [id number] Performed By: #### 9 68T, 74940M, %8293, 27433J, 6399, 496X #### [facility] Default [address] [place] [address] Basophils/100 WBC (Bld) 1.0 % Normal [facility] Specialist Comment on above: Order Comment: [facility] performed at: [facility], [address] , [address] [place] [address], [address] [place] [address], Service Officer: Gopal Hamilton MD [facility] Date/Time: [facility] Results Received Date/Time: [facility] Reported Date/Time: Performed By: #### 9 68T, 77463T, %8293, 65648K, 6399, 496X #### [facility] Default [address] [place] [address] EOSABS 171 cells/uL Normal 15-500 [facility] Specialist Comment on above: Order Comment: [facility] performed at: [facility], [address] , [address] [place] [address], [address] [place] [address], Service Officer: Gopal Hamilton MD [facility] Date/Time: [facility] Results Received Date/Time: [facility] Reported Date/Time: Performed By: #### 9 68T, 97232A, %8293, 23800P, 6399, 496X #### [facility] Default [address] [place] [address] Eosinophils/100 WBC (Bld) 2.9 % Normal [facility] Comment on above: Order Comment: [facility] performed at: [facility], [address] , [address] [place] [address], [address] [place] [address], Service Officer: Gopal Hamilton MD [facility] Date/Time: [facility] Results Received Date/Time: [facility] Reported Date/Time: Performed By: #### 9 68T, 44040E, %8293, 24138S, 6399, 496X #### [facility] Default [address] [place] [address] Erythrocyte distribution width (RBC) [Ratio] 12.9 % Normal 11.0-15.0 [facility] Comment on above: Order Comment: [facility] performed at: [facility], [address] [facility], [address] [place] [address], [address] [place] [address], Service Officer: Gopal Hamilton MD [facility] Date/Time: [facility] Results Received Date/Time: [facility] Reported Date/Time: Performed By: #### 9 68T, 63722T, %8293, 33504V, 6399, 496X #### [facility] Default [address] [place] [address] Hematocrit (Bld) [Volume fraction] 38.1 % Normal 35.0-45.0 [facility] Comment on above: Order Comment: [facility] performed at: [facility], [address] [facility], [address] [place] [address], [address] [place] [address], Service Officer: Gopal Hamilton MD [facility] Date/Time: [facility] Results Received Date/Time: [facility] Reported Date/Time: Performed By: #### 9 68T, 65499M, %8293, 21070H, 6399, 496X #### [facility] Default [address] [place] [address] Hemoglobin (Bld) [Mass/Vol] 12.9 g/dL Normal 11.7-15.5 [facility] Comment on above: Order Comment: [facility] performed at: [facility], [address] [place] [address], [address] [place] [address], [address] [place] [address], Service Officer: Gopal Hamilton MD [facility] Date/Time: [facility] Results Received Date/Time: [facility] Reported Date/Time: [id number] Performed By: #### 9 68T, 03803U, %8293, 80857L, 6399, 496X #### [facility] Default [address] [place] [address] Lymphocytes (Bld) [#/Vol] 1.375 10*3/uL Normal [phone] [facility] Specialist Comment on above: Order Comment: [facility] Testing performed at: [facility], 5 [facility], [address] [place] [address], [address] [place] [address], Service Officer: Gopal Hamilton MD [facility] Collection Date/Time: [facility] Results Received Date/Time: [facility] Reported Date/Time: Performed By: #### 9 68T, 36188M, %8293, 18086S, 6399, 496X #### [facility] [address] [place] [address] Lymphocytes/100 WBC (Bld) 23.3 % Normal [facility] Comment on above: Order Comment: [facility] Testing performed at: [facility], [address] [place] [address], [address] [place] [address], [address] [place] [address], Service Officer: Gopal Hamilton MD [facility] Collection Date/Time: [facility] Results Received Date/Time: [facility] Reported Date/Time: Performed By: #### 9 68T, 18859U, %8293, 03840W, 6399, 496X #### [facility] Default [address] [place] [address] MCH (RBC) [Entitic mass] 30.0 pg Normal 27.0-33.0 [facility] Comment on above: Order Comment: [facility] performed at: [facility], [address] [place] [address], [address] [place] [address], [address] [place] [address], Service Officer: Gopal Hamilton MD [facility] Collection Date/Time: [facility] Results Received Date/Time: [facility] Reported Date/Time: Performed By: #### 9 68T, 65337H, %8293, 95161Y, 6399, 496X #### [facility] Default [address] [place] [address] MCHC (RBC) [Mass/Vol] 33.9 g/dL Normal 32.0-36.0 [facility] Comment on above: Order Comment: [facility] Testing performed at: [facility], [address] [place] [address], [address] [place] [address], [phone], Service Officer: Gopal Hamilton MD [facility] Collection Date/Time: [facility] Results Received Date/Time: [facility] Reported Date/Time: Performed By: #### 9 68T, 27970E, %8293, 10512H, 6399, 496X #### [facility] Default [address] [place] [address] MCV (RBC) [Entitic vol] 88.6 fL Normal 80.0-100.0 [facility] Specialist Comment on above: Order Comment: [facility] Testing performed at: [facility], [address] [place] [address], [address] [place] [address], [phone], Service Officer: Gopal Hamilton MD [facility] Collection Date/Time: [facility] Results Received Date/Time: [facility] Reported Date/Time: Performed By: #### 9 68T, 82902O, %8293, 69993L, 6399, 496X #### [facility] Default [address] [place] [address] MONOABS 460 cells/uL Normal 200-950 [facility] Specialist Comment on above: Order Comment: [facility] Testing performed at: [facility], [address] [place] [address], [address] [place] [address], [address] [place] [address], Service Officer: Gopal Hamilton MD [facility] Collection Date/Time: [facility] Results Received Date/Time: [facility] Reported Date/Time: Performed By: #### 9 68T, 42982U, %8293, 91220F, 6399, 496X #### [facility] Default [address] [place] [address] Monocytes/100 WBC (Bld) 7.8 % Normal [facility] Specialist Comment on above: Order Comment: [facility] Testing performed at: [facility], [address] , [address] [place] [address], [address] [place] [address], Service Officer: Gopal Hamilton MD [facility] Collection Date/Time: [facility] Results Received Date/Time: [facility] Reported Date/Time: Performed By: #### 9 68T, 98972E, %8293, 07741L, 6399, 496X #### [facility] [address] [place] [address] Neutrophils (Bld) [#/Vol] 3.835 10*3/uL Normal 5586-9810 [facility] Specialist Comment on above: Order Comment: [facility] Testing performed at: [facility], [address] , [address] [place] [address], [address] [place] [address], Service Officer: Gopal Hamilton MD [facility] Collection Date/Time: [facility] Results Received Date/Time: [facility] Reported Date/Time: Performed By: #### 9 68T, 88139G, %8293, 70489O, 6399, 496X #### [facility] Default [address] [place] [address] Neutrophils/100 WBC (Bld) 65 % Normal [facility] Specialist Comment on above: Order Comment: [facility] Testing performed at: [facility], [address] , [address] [place] [address], [address] [place] [address], Service Officer: Gopal Hamilton MD [facility] Collection Date/Time: [facility] Results Received Date/Time: [facility] Reported Date/Time: Performed By: #### 9 68T, 40422B, %8293, 02284S, 6399, 496X #### [facility] Default [address] [place] [address] Platelet mean volume (Bld) [Entitic vol] 9.3 fL Normal 7.5-12.5 [facility] Comment on above: Order Comment: [facility] Testing performed at: [facility], [address] , [address] [place] [address], [address] [place] [address], Service Officer: Gopal Hamilton MD [facility] Collection Date/Time: [facility] Results Received Date/Time: [facility] Reported Date/Time: Performed By: #### 9 68T, 15044S, %8293, 91474V, 6399, 496X #### [facility] Default [address] [place] [address] Platelets (Bld) [#/Vol] 409 10*3/uL High 140-[address] [facility] Comment on above: Order Comment: [facility] Testing performed at: [facility], [address] , [address] [place] [address], [address] [place] [address], Service Officer: Gopal Hamilton MD [facility] Collection Date/Time: [facility] Results Received Date/Time: [facility] Reported Date/Time: Performed By: #### 9 68T, 11545U, %8293, 46045L, 6399, 496X #### [facility] Default [address] [place] [address] RBC (Bld) [#/Vol] 4.30 10*6/uL Normal 3.80-5.10 [facility] Comment on above: Order Comment: [facility] Testing performed at: [facility], [address] , [address] [place] [address], [address] [place] [address], Service Officer: Gopal Hamilton MD [facility] Collection Date/Time: [facility] Results Received Date/Time: [facility] Reported Date/Time: Performed By: #### 9 68T, 37180A, %8293, 94085N, 6399, 496X #### [facility] Default [address] [place] [address] WBC (Bld) [#/Vol] 5.9 10*3/uL Normal 3.8-10.8 Jay gambino [place] [facility] Comment on above: Order Comment: [facility] Testing performed at: [facility], [address] [place] [address], [address] [place] [address], [phone], Service Officer: Gopal Hamilton MD [facility] Collection Date/Time: [facility] Results Received Date/Time: [facility] Reported Date/Time: Performed By: #### 9 68T, 98752Q, %8293, 65278U, 6399, 496X #### [facility] Default [address] [place] [address] Q - COMPREHENSIVE METABOLIC PANEL W/EGFRon 03-10-2022 Albumin [Mass/Vol] 4.3 g/dL Normal 3.6-5.1 Jay gambino [place] [facility] Comment on above: Order Comment: [facility] Testing performed at: [facility], [address] [place] [address], [address] [place] [address], [address], Service Officer: Gopal Hamilton MD [facility] Collection Date/Time: [facility] Results Received Date/Time: [facility] Reported Date/Time: Performed By: #### 9 68T, 28531Z, %8293, 03184L, 6399, 496X #### [facility] Default [address] [place] [address] Albumin/Globulin [Mass ratio] 1.7 {ratio} Normal 1.0-2.5 [facility] Comment on above: Order Comment: [facility] Testing performed at: [facility], [address] [place] [address], [address] [place] [address], [address] [place] [address], Service Officer: Gopal Hamilton MD [facility] Collection Date/Time: [facility] Results Received Date/Time: [facility] Reported Date/Time: Performed By: #### 9 68T, 03335G, %8293, 41441J, 6399, 496X #### [facility] Default [address] [place] [address] ALP [Catalytic activity/Vol] 134 U/L High 31-125 [facility] Comment on above: Order Comment: [facility] Testing performed at: [facility], [facility], [address] [place] [address], [address] [place] [address], [address] [place] [address], Service Officer: Gopal Hamilton MD [facility] Collection Date/Time: [facility] Results Received Date/Time: [facility] Reported Date/Time: Performed By: #### 9 68T, 19692M, %8293, 82979D, 6399, 496X #### [facility] Default [address] [place] [address] ALT [Catalytic activity/Vol] 41 U/L High 6-29 [facility]ist Comment on above: Order Comment: [facility] Testing performed at: [facility], [facility], [address] [place] [address], [address] [place] [address], [address] [place] [address], Service Officer: Gopal Hamilton MD [facility] Collection Date/Time: [facility] Results Received Date/Time: [facility] Reported Date/Time: Performed By: #### 9 68T, 64214Z, %8293, 83800T, 6399, 496X #### [facility] Default [address] [place] [address] AST [Catalytic activity/Vol] 33 U/L Normal 10-35 [facility]ist Comment on above: Order Comment: [facility] Testing performed at: [facility], [facility], [address] [place] [address], [address] [place] [address], [address] [place] [address], Service Officer: Gopal Hamilton MD [facility] Collection Date/Time: [facility] Results Received Date/Time: [facility] Reported Date/Time: Performed By: #### 9 68T, 35573F, %8293, 41407G, 6399, 496X #### [facility] Default [address] [place] [address] BUN/CREA 17 NOT APPLICABLE Normal 6-22 [facility] Specialist Comment on above: Order Comment: [facility] Testing performed at: [facility], [address] [facility], [address] [place] [address], , Service Officer: Gopal Hamilton MD [facility] Collection Date/Time: [facility] Results Received Date/Time: [facility] Reported Date/Time: Performed By: #### 9 68T, 69715C, %8293, 07473H, 6399, 496X #### [facility] Default [address] [place] [address] Calcium [Mass/Vol] 9.6 mg/dL Normal 8.6-10.2 [facility] Specialist Comment on above: Order Comment: [facility] Testing performed at: [facility], [address] , [address] [place] [address], [address], Service Officer: Gopal Hamilton MD [facility] Collection Date/Time: [facility] Results Received Date/Time: [facility] Reported Date/Time: Performed By: #### 9 68T, 27449J, %8293, 91903G, 6399, 496X #### [facility] Default [address] [place] [address] Chloride [Moles/Vol] 103 mmol/L Normal 98-110 Gen rodriguez [place] [facility] Comment on above: Order Comment: [facility] Testing performed at: [facility], [address] , [address] [place] [address], [phone], Service Officer: Gopal Hamilton MD [facility] Collection Date/Time: [facility] Results Received Date/Time: [facility] Reported Date/Time: Performed By: #### 9 68T, 06267M, %8293, 69477F, 6399, 496X #### [facility] Default [address] [place] [address] CO2 [Moles/Vol] 27 mmol/L Normal 20-32 [facility] Specialist Comment on above: Order Comment: [facility] Testing performed at: [facility], [address] [place] [address], [address] [place] [address], , Service Officer: Gopal Hamilton MD [facility] Collection Date/Time: [facility] Results Received Date/Time: [facility] Reported Date/Time: Performed By: #### 9 68T, 71341H, %8293, 64108N, 6399, 496X #### [facility] Default [address] [place] [address] Creatinine [Mass/Vol] 0.65 mg/dL Normal 0.50-1.10 [facility] Aid Specialist Comment on above: Order Comment: [facility] Testing performed at: [facility], [address] [place] [address], [address] [place] [address], [address], Service Officer: Gopal Hamilton MD [facility] Collection Date/Time: [facility] Results Received Date/Time: [facility] Reported Date/Time: Performed By: #### 9 68T, 51029M, %8293, 03071L, 6399, 496X #### [facility] Default [address] [place] [address] eGFRAA ([facility]) 121 mL/min/1.73m2 Normal > OR = 60 [facility] Aid Specialist Comment on above: Order Comment: [facility] Testing performed at: [facility], [address] [place] [address], [address] [place] [address], [address] [place] [address], Service Officer: Gopal Hamilton MD [facility] Collection Date/Time: [facility] Results Received Date/Time: [facility] Reported Date/Time: Performed By: #### 9 68T, 13022F, %8293, 31885U, 6399, 496X #### [facility] Default [address] [place] [address] eGFRNAA ([facility]) 104 mL/min/1.73m2 Normal > OR = 60 No rthern [place] [facility]ist Comment on above: Order Comment: [facility] Testing performed at: [facility], [facility], [address] [place] [address], [address] [place] [address], [address] [place] [address], Service Officer: Gopal Hamilton MD [facility] Collection Date/Time: [facility] Results Received Date/Time: [facility] Reported Date/Time: Performed By: #### 9 68T, 00165U, %8293, 28874Y, 6399, 496X #### [facility] Default [address] [place] [address] Globulin (S) [Mass/Vol] 2.5 g/dL Normal 1.9-3.7 [facility] Specialist Comment on above: Order Comment: [facility] Testing performed at: [facility], [address] [place] [address], [address] [place] [address], [address] [place] [address], Service Officer: Gopal Hamilton MD [facility] Collection Date/Time: [facility] Results Received Date/Time: [facility] Reported Date/Time: Performed By: #### 9 68T, 08947A, %8293, 38304S, 6399, 496X #### [facility] Default [address] [place] [address] Glucose [Mass/Vol] 94 mg/dL Normal 65-99 [facility] Specialist Comment on above: Order Comment: [facility] Testing performed at: [facility], [address] [place] [address], [address] [place] [address], [address] [place] [address], Service Officer: Gopal Hamilton MD [facility] Collection Date/Time: [facility] Results Received Date/Time: [facility] Reported Date/Time: Result Comment: Fasting reference interval Performed By: #### 9 68T, 93276B, %8293, 13525B, 6399, 496X #### [facility] Default [address] [place] [address] Potassium [Moles/Vol] 4.4 mmol/L Normal 3.5-5.3 Venita larson [place] [facility] Comment on above: Order Comment: [facility] Testing performed at: [facility], [address] [place] [address], [address] [place] [address], [address] [place] [address], Service Officer: Gopal Hamilton MD [facility] Collection Date/Time: [facility] Results Received Date/Time: [facility] Reported Date/Time: Performed By: #### 9 68T, 48760O, %8293, 93034O, 6399, 496X #### [facility] Default [address] [place] [address] Protein [Mass/Vol] 6.8 g/dL Normal 6.1-8.1 Jay gambino [place] [facility] Comment on above: Order Comment: [facility] Testing performed at: [facility], 5 [facility], [address] [place] [address], [address] [place] [address], Service Officer: Gopal Hamilton MD [facility] Collection Date/Time: [facility] Results Received Date/Time: [facility] Reported Date/Time: Performed By: #### 9 68T, 98129I, %8293, 98811C, 6399, 496X #### [facility] Default [address] [place] [address] Sodium [Moles/Vol] 138 mmol/L Normal 135-146 Jay gambino [place] [facility] Specialist Comment on above: Order Comment: [facility] Testing performed at: [facility], [address] [facility], [address] [place] [address], [address] [place] [address], Service Officer: Gopal Hamilton MD [facility] Collection Date/Time: [facility] Results Received Date/Time: [facility] Reported Date/Time: Performed By: #### 9 68T, 62966A, %8293, 56080R, 6399, 496X #### [facility] Default [address] [place] [address] TBIL <0.3 Normal 0.2-1.2 [facility] Specialist Comment on above: Order Comment: [facility] Testing performed at: [facility], [address] [place] [address], [address] [place] [address], [address] [place] [address], Service Officer: Gopal Hamilton MD [facility] Collection Date/Time: [facility] Results Received Date/Time: [facility] Reported Date/Time: Performed By: #### 9 68T, 97594Q, %8293, 89514L, 6399, 496X #### [facility] Default [address] [place] [address] Urea nitrogen [Mass/Vol] 11 mg/dL Normal 7-25 [place] [facility]ist Comment on above: Order Comment: [facility] Testing performed at: [facility], [address] [place] [address], [address] [place] [address], [address] [place] [address], Service Officer: Gopal Hamilton MD [facility] Collection Date/Time: [facility] Results Received Date/Time: [facility] Reported Date/Time: Performed By: #### 9 68T, 95227Y, %8293, 68992F, 6399, 496X #### [facility] Default [address] [place] [address] Q - DLDL REFLEXon 03-10-2022 Cholesterol in LDL [Mass/Vol] 87 mg/dL Normal <100 [place] [facility] Comment on above: Order Comment: [facility] Testing performed at: [facility], [address] , [address] [place] [address], [address], Service Officer: Gopal Hamilton MD [facility] Collection Date/Time: [facility] Results Received Date/Time: [facility] Reported Date/Time: Result Comment: Desirable range <100 mg/dL for primary prevention; <70 mg/dL for patients with CHD or diabetic patients with > or = 2 CHD risk factors. Performed By: #### 9 68T, 94202G, %8293, 67747Z, 6399, 496X #### [facility] Default [address] [place] [address] Q - HEMOGLOBIN A1Con HEMOGLOBIN A1c 5.0 % of total Hgb Normal <5.7 No rthern [place] [facility] Specialist Comment on above: Order Comment: [facility] Testing performed at: [facility], 5 [facility], [address] [place] [address], [address] [place] [address], Service Officer: Gopal Hamilton MD [facility] Date/Time: [facility] [...] diagnosis of diabetes in children. According to [place] [employer] (ADA) guidelines, hemoglobin A1c <7.0% represents optimal control in non- diabetic patients. Different metrics may apply to specific patient populations. Standards of Medical Care in Diabetes(ADA). Performed By: #### 9 68T, 46859D, %8293, 80946T, 6399, 496X #### [facility] Default [address] [place] [address] Q - Lipid Panelon 03-10-2022 Cholesterol [Mass/Vol] 230 mg/dL High <200 No rthern [place] [facility] Specialist Comment on above: Order Comment: [facility] Testing performed at: [facility], [address] [facility], [address] [place] [address], [address] [place] [address], Service Officer: Gopal Hamilton MD [facility] Collection Date/Time: [facility] Results Received Date/Time: [facility] Reported Date/Time: Performed By: #### 9 68T, 70425H, %8293, 02339L, 6399, 496X #### [facility] Default [address] [place] [address] Cholesterol in HDL [Mass/Vol] 52 mg/dL Normal > OR = 50 [facility] Specialist Comment on above: Order Comment: [facility] Testing performed at: [facility], [address] [facility], [address] [place] [address], [address] [place] [address], Service Officer: Gopal Hamilton MD [facility] Collection Date/Time: [facility] Results Received Date/Time: [facility] Reported Date/Time: Performed By: #### 9 68T, 49386Z, %8293, 62019A, 6399, 496X #### [facility] Default [address] [place] [address] Cholesterol.total/Chol esterol in HDL [Mass ratio] 4.4 {ratio} Normal <5.0 [facility] Specialist Comment on above: Order Comment: [facility] Testing performed at: [facility], [address] [facility], [address] [place] [address], [address] [place] [address], Service Officer: Gopal Hamilton MD [facility] Date/Time: [id number] [facility] Results Received Date/Time: [facility] Reported Date/Time: Performed By: #### 9 68T, 88391O, %8293, 05838P, 6399, 496X #### [facility] Default [address] [place] [address] LDLD SEE NOTE Normal [facility] Specialist Comment on above: Order Comment: [facility] performed at: [facility], [address] , [address] [place] [address], [address], Service Officer: Gopal Hamilton MD [facility] Date/Time: [facility] [...] LDL-C. Estevan SCHILLING et al. ZANA. 2013;310(19): 2324-9405 ([email or web address]) Performed By: #### 9 68T, 94307W, %8293, 43101Y, 6399, 496X #### [facility] Default [address] [place] [address] NON HDL CHOLESTEROL 178 mg/dL (calc) High <130 [facility] Specialist Comment on above: Order Comment: [facility] performed at: [facility], [address] , [address] [place], [address], Service Officer: Gopal Hamilton MD [facility] Date/Time: [facility] Results Received Date/Time: [facility] Reported Date/Time: Result Comment: For patients with diabetes plus 1 major ASCVD risk factor, treating to a non-HDL-C goal of <100 mg/dL (LDL-C of <70 mg/dL) is considered a therapeutic option. Performed By: #### 9 68T, 21240L, %8293, 33022Z, 6399, 496X #### [facility] Default [address] [place] [address] Triglyceride [Mass/Vol] 410 mg/dL High <150 [facility] Specialist Comment on above: Order Comment: [facility] performed at: [facility], [address], [address] [place] [address], [address], Service Officer: Gopal Hamilton MD [facility] Date/Time: [facility] Results Received Date/Time: [facility] Reported Date/Time: Result Comment: If a non-fasting specimen was collected, consider repeat triglyceride testing on a fasting specimen if clinically indicated. João et al. J. of Clin. Lipidol. 2015;9:129-169. Performed By: #### 9 68T, 03896P, %8293, 10734O, 6399, 496X #### [facility] Default [address] [place] [address] Q - TROPONIN Ion 03-10-2022 TROPONIN I 3 ng/L Normal < OR = 47 [facility] Specialist Comment on above: Order Comment: [facility] performed at: [facility], [address], [address] [place], [address], Service Officer: Gopal Hamilton MD [facility] Date/Time: [facility] Results Received Date/Time: [facility] Reported Date/Time: Result Comment: In accord with published recommendations, serial testing of troponin I at intervals of 2 to 4 hours for up to 12 to 24 hours is suggested in order to corroborate a single troponin I result. An elevated troponin alone is not sufficient to make the diagnosis of VA. Performed By: #### 9 68T, 96502U, %8293, 09918O, 6399, 496X #### [facility] Default [address] [place] [address] UA DIP, URINE (POC)on 2021 BILIRUBIN UA (POCT) Negative Negative [facility] CLARITY UA (POCT) Clear [facility] COLOR UA (POCT) Yellow [facility] GLUCOSE UA (POCT) Negative Negative mg/dL [facility] HEMOGLOBIN/BLOOD UA (POCT) Negative Negative [facility] KETONE UA (POCT) Negative Negative mg/dL [facility] LEUKOCYTES UA (POCT) Negative Negative [facility] NITRITE UA (POCT) Negative Negative [facility] PH UA (POCT) 5.0 4.5 - 8.0 [facility] Protein Ql (U) Trace Abnormal Negative mg/dL [facility] SPECIFIC GRAVITY UA (POCT) >=1.030 1.005 - 1.030 [facility] UROBILINOGEN UA (POCT) 0.2 E.U./dL Brenda l E.U./dL [facility] CNTHERAPYon 01-31-2022 CNTHERAPY OT/PT/Speech Visit (PTLHO) ----- MARY LEAL ([id number]) 1970 F Date Time Provider Department 01/31/22 10:30 AM [facility] Date Time Provider Department [place] 01/31/2022 10:30 AM [id number], [facility] Reason for Visit: Physical Therapy [503] [...] (FLONASE) 50 mcg/actuation nasal spray Use 1 Kinsley in each nostril once daily. - carBAMazepine [...] by mouth every morning BEFORE BREAKFAST - heosspjpeoq-wyxohwgrx-oam anter (TRELEGY ELLIPTA) 100-62.5-25 mcg Inhale 1 Puff as instructed once daily. - atenolol (TENORMIN) 50 mg tablet Take 50 mg by mouth once daily. ----- [facility] CNTHERAPYon 01-24-2022 CNTHERAPY OT/PT/Speech Visit (PTLHO) ----- MARY LEAL ([id number]) 1970 F Date Time Provider Department 01/24/22 10:30 AM [facility] Date Time Provider Department [place] 01/24/2022 10:30 AM [id number], JILL [facility] Reason for Visit: Physical Therapy [503] [...] (FLONASE) 50 mcg/actuation nasal spray Use 1 Kinsley in each nostril once daily. - carBAMazepine [...] by mouth every morning BEFORE BREAKFAST - jywaujgrljx-bppriezwd-vpd anter (TRELEGY ELLIPTA) 100-62.5-25 mcg Inhale 1 Puff as instructed once daily. - atenolol (TENORMIN) 50 mg tablet Take 50 mg by mouth once daily. ----- [facility] CNTHERAPYon 01-18-2022 CNTHERAPY OT/PT/Speech Visit (PTLHO) ----- MARY LEAL ([id number]) 1970 F Date Time Provider Department 01/18/22 12:15 PM [facility] Provider Department [place] 01/18/2022 12:15 PM [id number], KATHRYN [facility] Reason for Visit: PT Eval [747] Primary [...] (FLONASE) 50 mcg/actuation nasal spray Use 1 Kinsley in each nostril once daily. - carBAMazepine [...] by mouth every morning BEFORE BREAKFAST - echspyzltwj-slckskttx-mtu anter (TRELEGY ELLIPTA) 100-62.5-25 mcg Inhale 1 Puff as instructed once daily. - atenolol (TENORMIN) 50 mg tablet Take 50 mg by mouth once daily. ----- Letter Text [facility] 12-27-[address] [facility] [id number] Author: Sonido Owen MD Service: Colorectal Author Type: Resident Type: Discharge Summary Filed: 12/27/2021 3:55 PM Note Text: ----- Attestation signed by Mary Obrien MD at 12/29/2021 4:11 PM [facility] STAFF PHYSICIAN NOTE OF [...] the PACU and was transferred to the [facility]. Postoperatively, the patient recovered well. Her [...] mg Finesse (more content not included)... Normal [facility] CONSULTon 12-27-2021 CONSULT HNO ID: [id number] Author: Trini F Hines, RN Service: Wound/Ostomy Author Type: Registered Nurse Type: Consults Filed: 12/27/2021 3:32 PM Note Text: STOMA CARE POST-OPERATIVE ASSESSMENT AND PATIENT EDUCATION Patient Name: Mary Leal Date: December 27, 2021 Time: 3:20 PM ET Care Outcome: Ms. Leal was seen today on the [facility] for ostomy education and a pouch change lesson. ET's Next Scheduled Visit: Complete. STOMA ASSESSMENT Stoma type: Loop ileostomy Diameter: 35 mm with and extra 1 mm cut on the medial side of the pouch. Location: RLQ Protrusion: Budded, Os points downward Mucosal condition and color: Red and [place] and moist. Boni: No Mucocutaneous Junction: Intact [...] one piece cut to fit drainable pouch (#[id number]) and Coloplast Brava moldable ring (2mm) #[id number]. Brava barrier strips, product # [id number] applied around the border of the pouch. [...] FROM THE CHART OR MODIFY PRINTED COPY. [facility] NURSING PROGon 12-27-2021 NURSING PROG HNO ID: [id number] Author: Marizol Hankins RN Service: ? Author Type: Registered Nurse Type: Nursing Progress Note Filed: 12/27/2021 4:39 PM Note Text: Nursing Progress Note Patient Name: Mary Leal Patient Location: [place] [address]/[place] [address] Daily Note: Pt AANDO x 3. Lap site PIPE ROLLER with glue, no drainage. Pt on GI [...] This note was completed by: Marizol Hankins [facility] NUTRITIONon 12-27-2021 NUTRITION HNO ID: [id number] Author: Merced Morales DTR Service: Nutrition Therapy Author Type: Senior Network Architect Type: Nutrition Filed: 12/27/2021 12:16 PM Note Text: NUTRITION THERAPY TRAFFIC COURT REFEREE NOTE SERVICE DATE: 12/27/2021 SERVICE TIME: 10:00 [...] DATE: December 27, 2021 TIME: 12:15 PM [facility] PT EDon 12-27-2021 PT ED HNO ID: [id number] Author: Merced Morales DTR Service: Nutrition Therapy Author Type: Senior Network Architect Type: Patient Education Filed: 12/27/2021 12:16 PM [...] 27, 2021 TIME: 12:16 PM PAGER: Normal [facility] Basic Metabolic Panlon 12-26 Anion gap [Moles/Vol] 9 mmol/L Normal 9-18 [facility] Comment on above: Performed By: #### B MP #### [place] [phone] Calcium [Mass/Vol] 8.5 mg/dL Normal 8.5-10.5 [facility] Comment on above: Performed By: #### B MP #### [place] [phone] Chloride [Moles/Vol] 102 mmol/L Normal 98-110 [facility] Comment on above: Performed By: #### B MP #### [place] [phone] CO2 [Moles/Vol] 28 mmol/L Normal 23-32 [facility] Comment on above: Performed By: #### B MP #### [place] [phone] Creatinine [Mass/Vol] 0.62 mg/dL Low 0.70-1.40 [facility] Comment on above: Performed By: #### B MP #### [place] [phone] eGFR- Amer. >60 Normal >59 [facility] Comment on above: Performed By: #### B MP #### [place] [phone] eGFR-All Other Races >60 Normal >59 [facility] Comment on above: Result Comment: [...] [email or web address]. Performed By: #### B MP #### [place] [phone] Glucose [Mass/Vol] 71 mg/dL Normal 65-100 [facility] Comment on above: Performed By: #### B MP #### [place] [phone] Potassium [Moles/Vol] 4.0 mmol/L Normal 3.5-5.0 [facility] Comment on above: Performed By: #### B MP #### [place] [phone] Sodium [Moles/Vol] 139 mmol/L Normal 132-148 [facility] Comment on above: Performed By: #### B MP #### [place] [phone] Urea nitrogen [Mass/Vol] 10 mg/dL Normal 8-25 [facility] Comment on above: Performed By: #### B MP #### [place] [phone] NURSING PROGon 12-26-2021 NURSING PROG HNO ID: [id number] Author: Dipti Crowley RN Service: Nursing Author Type: Registered Nurse Type: Nursing Progress Note Filed: 12/26/2021 5:25 PM Note Text: Nursing Progress Note Patient Name: Mary Leal Patient Location: [place] [address] Daily Note: Call discontinued as directed in orders. 700cc output from call. 250cc NS instilled and then call catheter removed. Patient assisted to C and voided 200cc pink tinged urine. Patient assisted back to bed, not wanting to go to chair. Call light in reach. This note was completed by: Dipti [facility] NURSING PROG HNO ID: [id number] Author: Dipti Crowley, RN Service: Nursing Author Type: Registered Nurse Type: Nursing Progress Note Filed: 12/26/2021 3:51 PM Note Text: Nursing Progress Note Patient Name: Mary Leal Patient Location: [address]/-[id number] Daily Note: Patient AANDOx3. VSS. 2L NC POx. IVF infusing as ordered. Dilaudid GRINDER AND PLATER, OXY IR on for pain. Patient drowsy yet easily arousable. Lap sites and transverse incision PIPE ROLLER with glue. Ileostomy draining liquid brown. Call draining clear yellow. PAS on. No edema. Fa,saman at bed side. Call light in reach. This note was completed by: Dipti [facility] Basic Metabolic Panlon 12-25 Anion gap [Moles/Vol] 9 mmol/L Normal 9-18 [facility] Comment on above: Performed By: #### B MP #### [facility] [address] [place] [address] Calcium [Mass/Vol] 8.5 mg/dL Normal 8.5-10.5 [facility] Comment on above: Performed By: #### B MP #### [place] [address] Chloride [Moles/Vol] 104 mmol/L Normal 98-110 [facility] Comment on above: Performed By: #### B MP #### [place] [address] CO2 [Moles/Vol] 28 mmol/L Normal 23-32 [facility] Comment on above: Performed By: #### B MP #### [place] [phone] Creatinine [Mass/Vol] 0.72 mg/dL Normal 0.70-1.40 [facility] Comment on above: Performed By: #### B MP #### [place] [address] eGFR- Amer. >60 Normal >59 [facility] Comment on above: Performed By: #### B MP #### [place] [phone] eGFR-All Other Races >60 Normal >59 [facility] Comment on above: Result Comment: [...] [email or web address]/[email or web address]. Performed By: #### B MP #### [place] [phone] Glucose [Mass/Vol] 91 mg/dL Normal 65-100 [facility] Comment on above: Performed By: #### B MP #### [facility] [address] [place] [address] Potassium [Moles/Vol] 4.0 mmol/L Normal 3.5-5.0 [facility] Comment on above: Performed By: #### B MP #### [place] [phone] Sodium [Moles/Vol] 141 mmol/L Normal 132-148 [facility] Comment on above: Performed By: #### B MP #### [place] [phone] Urea nitrogen [Mass/Vol] 12 mg/dL Normal 8-25 [facility] Comment on above: Performed By: #### B MP #### [place] [address] CASE MGT INIT ASSESon 2021 CASE MGT INIT ASSES HNO ID: [id number] Author: TITO Whitt Service: ? Author Type: Cafeteria Clerk Type: Care Mgt Initial Assessment Filed: 12/25/2021 11:43 AM Note Text: CARE MANAGEMENT: ASSESSMENT AND DISCHARGE PLAN SERVICE DATE: December 25, 2021 SERVICE TIME: 11:39 AM PRIMARY CARE PHYSICIAN: Eliceo Gómez DO ADMISSION STATUS: Inpatient Needs Prior to Discharge: Facility or Agency Choices;Home Care Order MEDICAL: [employer] MEDICAID 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 Stated Goals: To have reduction in symptoms Health Insurance: [facility] Issues Impacting Discharge Plan: None Last Discharge Date: 10/14/20 Is this Within the Past 30 days? Last discharge within 30 days: No Advance Directive: Current Advance Directive: Health Care Power of Associate Director Finance In Chart: No Health LiteracyHow often do [...] Completely I feel financially burdened by my ccz-pz-pmewaz expenses for my prescription medication:: 0 - Disagree Completely Risk Score: 0 Patient is categorized as: Low risk < 2 Are you interested in bedside delivery of your medications? Yes Is Patient Psychosocially Complex?: No ASSESSMENT AND PLAN: Medical Needs: Medical Needs: None Psychosocial Needs: Psychosocial Needs: None FREEDOM OF CHOICE EXPLAINED: [place] of Choice Given: Yes Level of Care Discussed: Home Care Financial Disclosure Provided: Yes Financial Disclosure Comments: careport Provider List: Home Care Provider list within the patient's requested geographic area shared with the patient/family: Yes within: 15 miles of zip code: [address] Quality and resource use metrics shared with [...] bedside with pt during assessment. Charo Obando [phone]. Home care referrals sent. Daughter to transport at time of discharge. SIGNATURE: TITO Whitt PATIENT NAME: Mary Leal DATE: December 25, 2021 TIME: 11:39 AM PAGER/CONTACT #: [phone] Normal [facility] CBC and Differentialon 12-25 Abs Baso 0.03 k/uL Normal <0.11 [facility] Comment on above: Performed By: #### 5 7021-8 #### [facility] CLIA [id number] [address] [place] [address] [place] Abs Greer 0.45 k/uL Normal <0.87 [facility] Comment on above: Performed By: #### 5 7021-8 #### [facility] CLIA [id number] [address] [place] [address] [place] Abs Neut 3.85 k/uL Normal 1.45-7.50 [facility] Comment on above: Performed By: #### 5 7021-8 #### [facility] CLIA [id number] [address] [place] [address] [place] Absolute nRBC <0.01 Normal <0.01 [facility] Comment on above: Performed By: #### 5 7021-8 #### [facility] CLIA [id number] [address] [place] [address] [place] Basophils/100 WBC (Bld) 0.5 % Normal [facility] Comment on above: Performed By: #### 5 7021-8 #### [facility] CLIA [id number] [address] [place] [address] [place] DTYPE Auto Diff Normal [facility] Comment on above: Performed By: #### 5 7021-8 #### [facility] CLIA [id number] [address] [place] [address] [place] Eosinophils (Bld) [#/Vol] 0.14 10*3/uL Normal <0.46 [facility] Comment on above: Performed By: #### 5 7021-8 #### [facility] CLIA [id number] [place] [address] [place] Eosinophils/100 WBC (Bld) 2.3 % Normal [facility] Comment on above: Performed By: #### 5 7021-8 #### [facility] CLIA [id number] [address] [place] [address] [place] Erythrocyte distribution width (RBC) [Ratio] 11.6 % Normal 11.5-15.0 [facility] Comment on above: Performed By: #### 5 7021-8 #### [facility] CLIA [id number] [address] [place] [address] [place] Hematocrit (Bld) [Volume fraction] 35.2 % Low 36.0-46.0 [facility] Comment on above: Performed By: #### 5 7021-8 #### [facility] CLIA [id number] [address] [place] [address] [place] Hemoglobin (Bld) [Mass/Vol] 11.6 g/dL Normal 11.5-15.5 [facility] Comment on above: Performed By: #### 5 7021-8 #### [facility] CLIA [id number] [address] [place] [address] [place] Lymphocytes (Bld) [#/Vol] 1.47 10*3/uL Normal 1.00-4.00 [facility] Comment on above: Performed By: #### 5 7021-8 #### [facility] CLIA [id number] [address] [place] [address] [place] Lymphocytes/100 WBC (Bld) 24.7 % Normal [facility] Comment on above: Performed By: #### 5 7021-8 #### [facility] CLIA [id number] [address] [place] [address] [place] MCH 29.5 pG Normal 26.0-34.0 [facility] Comment on above: Performed By: #### 5 7021-8 #### [facility] CLIA [id number] [address] [place] [address] [place] MCHC (RBC) [Mass/Vol] 33.0 g/dL Normal 30.5-36.0 [facility] Comment on above: Performed By: #### 5 7021-8 #### [facility] CLIA [id number] [address] [place] [address] [place] MCV (RBC) [Entitic vol] 89.6 fL Normal 80.0-100.0 [facility] Comment on above: Performed By: #### 5 7021-8 #### [facility] CLIA [id number] [address] [place] [address] [place] Monocytes/100 WBC (Bld) 7.6 % Normal [facility] Comment on above: Performed By: #### 5 7021-8 #### [facility] CLIA [id number] [address] [place] [address] [place] Neutrophils/100 WBC (Bld) 64.9 % Normal [facility] Comment on above: Performed By: #### 5 7021-8 #### [facility] CLIA [id number] [address] [place] [address] [place] NRBCs 0.0 /100 WBC Normal 0 [facility] Comment on above: Performed By: #### 5 7021-8 #### [facility] CLIA [id number] [address] [place] [address] [place] Platelet mean volume (Bld) [Entitic vol] 9.0 fL Normal 9.0-12.7 [facility] Comment on above: Performed By: #### 5 7021-8 #### [facility] CLIA [id number] [address] [place] [address] [place] Platelets (Bld) [#/Vol] 271 10*3/uL Normal 150-400 [facility] Comment on above: Performed By: #### 5 7021-8 #### [facility] CLIA [id number] [address] [place] [address] [place] RBC (Bld) [#/Vol] 3.93 10*6/uL Normal 3.90-5.20 [facility] Comment on above: Performed By: #### 5 7021-8 #### [facility] CLIA [id number] [address] WBC (Bld) [#/Vol] 5.96 10*3/uL Normal 3.70-11.00 [facility] Comment on above: Performed By: #### 5 7021-8 #### [facility] CLIA [id number] [address] [place] [id number] [facility] CONSULTon 12-25-2021 CONSULT HNO ID: [id number] Author: Tri Kowalski APRN.CHILD DAY CARE PROVIDER Service: Wound/Ostomy Author Type: Nurse Practitioner Type: Consults Filed: 12/25/2021 11:37 AM Note Text: OSTOMY SERVICE CONSULT DISH CLOTH INSPECTOR SERVICE DATE: 12/25/2021 SERVICE TIME: 1015 Consultation [...] HX 07/2021 revision - VAGINAL HYSTERECTOMY 2014 [facility] 10/2015 for endometriosis, has remaining [...] mL 20 mEq INTRAVENOUS PRN - HYDROmorphone GRINDER AND PLATER 0.5 mg/mL in NaCl 0.9% 100 mL [...] with h (more content not included)... Normal [facility] NURSING PROGon 12-25-2021 NURSING PROG HNO ID: [id number] Author: Marilyn Henning, MAKI Service: ? Author Type: Registered Nurse Type: Nursing Progress Note Filed: 12/25/2021 7:01 PM Note Text: Nursing Progress Note Patient Name: Mary Leal [facility] Daily Note: 0930 Pt AANDOx3. Lap sites intact. ABD tender. GRINDER AND PLATER pump running. Stoma beefy red, dark brown liquid output. Pt stated that the eye pressure felt overnite has resolved. Call remains in place until OBGYN sees pt 12/26. Pt requesting PO pain medication. 1100 Pt up to chair. [address] Ontiveros bedside. 5mg oxy ordered q4 PRN. This note was completed by: Marilyn Henning [facility] NURSING PROG HNO ID: [id number] Author: Annette Ford RN Service: ? Author Type: Registered Nurse Type: Nursing Progress Note Filed: 12/25/2021 6:12 AM Note Text: Nursing Progress Note Patient Name: Mary Leal Patient Location: [place] [address] [address] Daily Note: Pt has been complaining of [...] This note was completed by: Annette Ford [facility] ANES POSTPROC EVALon 022 ANES POSTPROC EVAL HNO ID: [id number] Author: Charisse Aggarwal MD Service: Anesthesiology Author Type: Anesthesiologist Type: Anesthesia Postprocedure Evaluation Filed: 12/24/2021 4:17 PM Note Text: POST ANESTHESIA EVALUATION NOTE : 1970 Procedure Summary Date: 12/24/21 Room / Location: [facility] OR10 / [facility] OR Anesthesia Start: 810 Anesthesia Stop: 1413 [...] December 24, 2021 TIME: 4:17 PM CSN: [id number] [facility] ANES PRE-OPon 12-24-2021 ANES PRE-OP HNO ID: [id number] Author: Chayito Ojeda MD Service: Anesthesiology Author [...] none. Vitals Value Taken Time BP 122/76 02/18/22 0628 Pulse 86 12/24/21627 Resp 16 12/24/21627 Temp [...] 11pm the evening prior to surgery. - ycscztrjhwh-fnmgxvbvc-udm anter (TRELEGY ELLIPTA) 100-62.5-25 mcg Inhale 1 [...] December 24, 2021 TIME: 7:27 AM CSN: [id number] [facility] BRIEF OP NOTon 12-24-2021 BRIEF OP NOT HNO ID: [id number] Author: Jeinfer Ayala MD Service: Colorectal Author Type: Fellow Type: Brief Op Note Filed: 12/24/2021 12:16 PM Note Text: BRIEF OPERATIVE NOTE - COLORECTAL SURGERY Log ID: [id number] Surgery/Procedure Date: 12/24/2021 Incision/Procedure Start Time: 8:50 AM Incision Close/Procedure End Time: Surgeon(s) and Crystallographer(s): Surgeon(s) and Role: Panel 1: * Mary [...] DATE: December 24, 2021 TIME: 12:10 PM [facility] NURSING PROGon 12-24-2021 NURSING PROG HNO ID: [id number] Author: Marilyn Henning RN Service: ? Author Type: Registered Nurse Type: Nursing Progress Note Filed: 12/24/2021 6:36 PM Note Text: Nursing Progress Note Patient Name: Mary Leal Patient Location: [address] Daily Note: 1816 Pt arrived on floor with 100.2F temperature. Scheduled tylenol administered. Temperature 98.6 at 1816. Surgical incisions ELENI with glue, intact. Ostomy beefy red, producing sweat. Call remains in place. Pt Educated on GRINDER AND PLATER pump usage. Daughter bedside. Bed low and locked. This note was completed by: Marilyn Henning [facility] NURSING PROG HNO ID: [id number] Author: Marilyn Henning RN Service: ? Author Type: Registered Nurse Type: Nursing Progress Note Filed: 12/24/2021 4:19 PM Note Text: Nursing Progress Note Patient Name: Mary Leal Patient Location: [address] Transfer Note: Patient transferred into room/unit PK3-33 in stable condition. Actions taken: No futher actions taken at this time. Will continue to monitor and check with patient. This note was completed by: Marilyn Henning [facility] NURSING PROG HNO ID: [id number] Author: Dianelys Lopez RN Service: Nursing Author [...] (RECOMMENDATION): None Electronically Signed By: Dianelys Lopez [facility] OPERATIVE NOon 12-24-2021 OPERATIVE NO HNO ID: [id number] Author: Mary Obrien MD Service: Colorectal Author Type: Physician Type: Operative Report Filed: 12/24/2021 12:34 PM Note Text: COLON AND RECTAL SURGERY OPERATIVE REPORT PATIENT NAME: Mary Leal ADMISSION DATE: 12/24/2021 LOG ID: [id number] SURGERY/PROCEDURE DATE: 12/24/2021 INCISION/PROCEDURE START TIME: 8:50 AM INCISION CLOSE/PROCEDURE END TIME: AGE: [age] year old SEX: female SURGEON(S)/PROCEDURALIST( S) AND DYE LAB TECHNICIAN(S): Surgeon(s) and Role: Panel 1: * Mary [...] port site. This was ligated with a mqhcsv-hj-almyl Vicryl suture and was confirmed to be [...] above. Mary Obrien, (more content not included)... [facility] OPERATIVE NO HNO ID: [id number] Author: Pam Wang MD Service: Urogynecology Author Type: Physician Type: Operative Report Filed: 12/28/2021 10:03 AM Note Text: OPERATIVE/PROCEDURE REPORT LOG ID: [id number] SURGERY/PROCEDURE DATE: 12/24/2021 INCISION/PROCEDURE START TIME: 8:50 AM INCISION CLOSE/PROCEDURE END TIME: 1:50 PM SURGEON(S)/PROCEDURALIST( S) AND DYE LAB TECHNICIAN(S): Surgeon(s) and Role: Panel 1: * Mary [...] of the (more content not included)... Normal [facility] Type and SCR (30D)on 022 ABO/RH(D) Positive [facility] Comment on above: Performed By: #### T SCR30 ####[facility] [place], [place] [phone] Confirm Blood Typeon 021 ABO/RH(D) Positive Normal [facility] Comment on above: Performed By: #### C ONABO ####[facility] [place], [place] [phone] Type and SCR (30D)on ABO/RH(D) Positive Normal [facility] Comment on above: Performed By: #### T SCR30 ####[facility] [place], [place] [phone] Nonvisit Note - PTon Nonvisit Note - PT Chart reviewed with eval prepped for scheduled eval. KK [facility] Consenton 01-08-2021 Consent [id number]#1.00CD:1 27 [facility] Coding Summary.on 01-06-2021 Coding Summary. CODING DATE: FINAL [facility] DSC STATUS: Home (Routine DC) PAYOR: Medicaid EAPG [...] Eileen [place] Date Saved: 01/06/2021 09:01 am [facility] Consent for Procedure/Surger yon 01-04-2021 Consent for Procedure/Surgery [id number]#1.00CD:1 27 [facility] Consent for Procedure/Surgery [id number]#1.00CD:1 27 [facility] Consent for Treatmenton Consent for Treatment [id number]#1.00CD:12 7 Normal [facility] Discharge Instructionson Discharge Instructions [id number]#1.00CD:1 27 Normal [facility] Inpatient Patient Summaryon 01-04-2021 Inpatient Patient Summary [place] [id number] Clinical Summary Person Information Name: MARY LEAL Age: 50 Years : 1970 Sex: Female PCP: Isatu GÓMEZ DO Marital Status: Race: White Ethnicity: Non- or Language: Maltese Visit Id: Visit Reason: MIXED INCONTINENCE Speciality: Acuity: Enc Type: Outpatient Med Service: Surgery Arrival: 01/04/2021 12:31:00 Discharge: Dispo Type: Address: [address] [place] [phone] Provider Notes: Diagnosis: Problems Active Decreased bladder [...] Documented This Visit Final Med List: acetaminophen-hydrocodone ([place] 5/325 Tab) By Mouth every 6 hours. [...] up: With: Address: When: Clifford OCONNOR [facility], [address], [employer] [place] [id number] Business (1) Within 2 weeks Comments: Call for followup appointment. Have a great day! Patient Education Information: EU - Cystoscopy with Botox Injection Discharge Instructions (Custom) [facility] IntraOperative Documentson 0 01-04-2021 IntraOperative Documents [id number]#1.00CD:1 27 [facility] IntraOperative Documents [id number]#1.00CD:1 27 [facility] Main OR Intraoperative Recor don 01-04-2021 Main OR Intraoperative Record IntraOp Document Type FTURO Summary Primary Physician: Clifford OCONNOR MD Finalized Date/Time: 01/04/21 13:27:05 Pt. Name: MARY LEAL/Sex: 1970 Female Med Rec #: [id number] Physician: Clifford OCONNOR MD Financial #: [id number] Pt. Type: O Room/Bed: / Admit/Disch: 01/04/21 12:31:00 - Institution: Case Times FTURO Entry 1 Patient Times In Room 01/04/21 13:07:00 Out Room 01/04/21 13:27:00 Procedure Times Start 01/04/21 13:19:00 Stop 01/04/21 13:23:00 Anesthesia Times Last Modified By: Niecy Tran RN 01/04/21 13:27:01 Case Attendance FTURO Entry 1 Entry 2 Entry 3 Case Attendee COOK MD, Clifford Dalton GENERATOR SWITCHBOARD OPERATOR, Akin Mejias GENERATOR SWITCHBOARD OPERATOR, Debi Chand Role Performed Surgeon - Primary [...] Case Attendee Niecy Tran RN Role Performed Primary Teaching Assistant - Primary Time In 01/04/21 13:07:00 Time Out 01/04/21 13:27:00 Procedure CYSTOSCOPY LOCAL BOTOX INJECTION(.) Comments Last Modified By: Niecy Tran RN 01/04/21 13:27:02 Surgical Procedures FTURO Entry 1 Procedure Description Procedure CYSTOSCOPY LOCAL BOTOX Modifiers . INJECTION Surgeon Description CYSTOSCOPY BOTOX 50 UNITS LOT NUMBER [id number] EXP DATE 08/2023 Primary Procedure Yes Primary Surgeon Clifford OCONNOR MD 01/04/21 13:19:00 Stop 01/04/21 13:23:00 Anesthesia Type [...] (If Participants Sha PECK, Akin Cavazos, Applicable) Deib Mejias CST, Niecy Tran RN Time Out [...] By: Niecy Tran RN 01/04/21 13:27 [facility] Main OR Preoperative Recordo n 01-04-2021 Main OR Preoperative Record Holding Area Document Type FTURO Summary Primary Physician: Clifford OCONNOR MD Finalized Date/Time: 01/04/21 13:05:55 Pt. Name: MARY LEAL/Sex: 1970 Female Med Rec #: [id number] Physician: Clifford OCONNOR MD Financial #: [id number] Pt. Type: O Room/Bed: / Admit/Disch: 01/04/21 [...] 12:46 Niecy Tran RN 01/04/21 13:05 [facility] Operative Reporton Operative Report Patient: ERNESTO [...] arranged, F/U in two weeks. . [facility] Comment on above: Result Comment: Elec tronically Signed By: ANASTASIA BENSON, Clifford Bailey\.valerie\Date and Time Signed: 01/04/21 13:30 EST Outpatient Surgery Discharge Instructionon 01-04-2021 Outpatient Surgery Discharge Instruction [place] [id number] Patient Discharge Instructions PERSON INFORMATION Name: MARY [...] up: With: Address: When: Clifford OCONNOR [address], [address], [place] [address] [facility] (1) Within 2 weeks Comments: Call for [...] to serve you. Thank you for choosing [facility] PT - Assessmentson 1 PT - Assessments [id number]#1.00CD:1 27 [facility] Ambulatory Clinical Summaryo n 11-11-2020 Ambulatory Clinical Summary {[id number]-[id number]}C D:[id number] [facility] Patient Educationon 11-11-19 21 Patient Education [...] your urinary (more content not included)... [facility] Urology Phone Visit- Telehealth HPI [...] only communication with the patient located at [facility] [phone] , with no one else. If it [...] Francie BENSON, Dawna Feldman [address] [place] [address]- [phone] Additional Instructions: Patient Education Urodynamic Testing Overactive [...] urine stream His (more content not included)... [facility] Comment on above: Result Comment: Elec tronically Signed By: Francie BENSON, Dawna Feldman\.br\Date and Time Signed: 11/03/20 11:59 EST\.br\Electronically Co-Signed By: Christy Gill MA\.br\Date and Time Co-Signed: 10/21/20 12:01 EST Coding Summary.on 10-28-2020 Coding Summary. CODING DATE: 020 FINAL [facility] STATUS: Home (Routine DC) PAYOR: Medicaid [...] Eileen Scott Date Saved: 10/28/2020 11:17 am [facility] Ambulatory Clinical Summaryo n 10-27-2020 Ambulatory Clinical Summary {[id number]-[id number]-[id number]-c6-e5}C D:[id number] [facility] Consent for Procedure/Surger yon 10-27-2020 Consent for Procedure/Surgery [id number]#1.00CD: 127 [facility] Consent for Treatmenton 10-07 Consent for Treatment [id number]#1.00CD:12 7 [facility] IntraOperative Documentson 1 12-28-2019 IntraOperative Documents [id number]#1.00CD: 127 [facility] Patient Educationon 10-21-20 Patient Education Family [...] lab or depar (more content not included)... [facility] PT - Assessmentson 0 PT - Assessments [id number]#1.00CD:1 27 [facility] Nonvisit Note - PTon 020 Nonvisit Note - PT Per voicemail: she n eeds to cancel all of her PT due to personal reasons. KK [facility] Provider Letteron 09-09-2020 Provider Letter (Inserted Image. Jessica ble to display) September 09, 2020 MARY LEAL [address] [place] [address] MARY LEAL 1970 Dear Mary Leal, You [...] your understanding. Sincerely, [facility] [address] [facility], [place] [address] [facility] PT - Assessmentson 0 PT - Assessments [id number]#1.00CD:1 27 [facility] PT - Assessments [id number]#1.00CD:1 27 [facility] PT - Assessmentson 0 PT - Assessments [id number]#1.00CD:1 27 [facility] PT - Consentson 08-31-2020 PT - Consents [id number]#1.00CD:1 27 [facility] Pre-Certification Formon Pre-Certification Form [id number]#1.00CD:12 7 [facility] Pre-Certification Form [id number]#1.00CD:12 7 [facility] Consent for Procedure/Surger yon 08-26-2020 Consent for Procedure/Surgery [id number]#1.00CD:12 7 [facility] Ambulatory Clinical Summaryo n 08-25-2020 Ambulatory Clinical Summary {[id number]-ec-4e-24-71-[id number]-25}C D:[id number] [facility] Patient Educationon 08-25-20 Patient Education Family Medicine [...] an extended amount of time. Only take kgof-afx-rhgvazt or prescription medicines for pain, discomfort, or [...] Document Reviewed: 09/07/2009 ExitCare? Patient Information ?2013 [employer]. [facility] Urology Office/Clinic Noteon 08-25-2020 Urology Office/Clinic [...] disease: Mother. Hypertension: Mother and Father. [facility] Comment on above: Result Comment: Elec tronically Signed By: Dawna Marmolejo MD\.br\Date and Time Signed: 08/25/20 10:06 EDT\.br\Electronically Co-Signed By: Mary Hager\.br\Date and Time Co-Signed: 08/25/20 09:51 EDT Coding Summary.on 08-21-2020 Coding Summary. CODING DATE: 020 FINAL [facility] STATUS: PAYOR: Medicaid [facility] DESCRIPTION 0271 PHYSICAL THERAPY ADMIT DX: REASON [...] Raymond CphT Date Saved: 08/21/2020 10:42 am [facility] Consenton 08-21-2020 Consent [id number]#1.00CD:12 7 [facility] Ambulatory Clinical Summaryo n 08-19-2020 Ambulatory Clinical Summary {[id number] 63-05-40-7d-w3-[id number]}C D:[id number] [facility] Ambulatory Clinical Summary {[id number]-[id number]-3c}C D:[id number] [facility] Nonvisit Note - PTon 020 Nonvisit Note - PT Chart reviewed for scheduled eval. KK [facility] Patient Educationon 08-19-20 20 Patient Education Family [...] your urinary (more content not included)... [facility] Urology Phone Visit- Tele[facility] Chief [...] only communication with the patient located at [address] [place], [place] [phone], with no one else. If it is [...] questions/concerns were discussed. Pt. acknowledges understanding. [place] [facility] [place] U[place] Procedure Order 2. Dysuria (R30.0: Dysuria) Moderate. [place] [facility] [place] [place] Urology Procedure Order 3. Feeling of incomplete bladder emptying (R39.14: Feeling of incomplete bladder emptying) Pt. does not feel that she is emptying. [place] [facility] [place] [place] Urology Procedure Order 4. Weak urine stream (R39.12: Poor urinary stream) Weak stream w/ moderate hesitancy. [place] [facility] [place] Urology [...] Will order Local anesthesia. [facility] sent to [facility] [place]. [place] [facility] [place]ulatory Ref[place] Urology [...] Patient who (more content not included)... [facility] Comment on above: Result Comment: Elec tronically Signed By: Dawna Marmolejo MD\.br\Date and Time Signed: 08/19/20 08:53 EDT\.br\Electronically Co-Signed By: Christy Gill MA\.br\Date and Time Co-Signed: 08/19/20 08:44 EDT Coding Summary.on 08-12-2020 Coding Summary. CODING DATE: 020 FINAL [facility] STATUS: Home (Routine DC) PAYOR: Medicaid [...] Demi Fried Date Saved: 08/12/2020 09:42 am [facility] Formson 08-11-2020 Forms [id number]#1.00CD:12 7 [facility] C Urineon 08-09-2020 Bacteria identified Cx Nom (U) Microbiology PROCEDURE: Urine Culture [R1] SOURCE: U Random BODY SITE: COLLECTED DATE/TIME: 08/07/2020 15:46 EDT RECEIVED DATE/TIME: 08/07/2020 17:10 EDT START DATE/TIME: 08/07/2020 17:10 EDT FREE TEXT SOURCE: Francie BENSON, Dawna Marmolejo MD, Dawna Keys. FINAL REPORTS Final Report [] Verified Date/Time: 08/09/2020 11:56 EDT 500 cfu/ml Mixed skin contaminants Performing Locations R1: This test was performed at: [facility], [address] [place] [address], [facility] , , [facility] Comment on above: Performed By: #### 2 [id number] ####[facility] [address] [place] [address] Ambulatory Clinical Summaryo n 08-07-2020 Ambulatory Clinical Summary {[id number] 69-[id number]-[id number]-ii-84-a2}C D:[id number] [facility] Patient Educationon 08-07-20 20 Patient Education [...] Document Reviewed: 07/18/2013 ExitCare? Patient Information ?2013 Spro[employer]il. Family Medicine Overactive Bladder, Adult The bladder [...] bladder, your (more content not included)... [facility] Urology Office/Clinic Noteon 08-07-2020 Urology Office/Clinic [...] setting of nocturia q2hrs and daytime frequency n7rglxi with painful post void bladder sensation of [...] [address] (more content not included)... [facility] Comment on above: Result Comment: Elec tronically Signed By: Dawna Marmolejo MD\.br\Date and Time Signed: 08/07/20 15:54 EDT\.br\Electronically Co-Signed By: Radha Hare MA\.br\Date and Time Co-Signed: 08/07/20 15:44 EDT Vital Signs Date Time Vital Sign Value Performing Clinician Facility 11-23-2023 08:14-0500 Body height 162.56 cm DO Shannon Gómez Work Phone: [facility] 11-23-2023 08:14-0500 Body weight 70.3 kg DO Shannon Gómez Work Phone: [facility] 08-12-2023 07:08-0400 Diastolic blood pressure 65 mm[Hg] Lex Salmon MD Work Phone: [facility] 08-12-2023 07:08-0400 Heart rate 77 /min Lex Salmon MD Work Phone: [facility] 08-12-2023 07:08-0400 SaO2% (BldA) [Mass fraction] 98 % Lex Salmon MD Work Phone: [facility] 08-12-2023 07:08-0400 Systolic blood pressure 132 mm[Hg] Lex Salmon MD Work Phone: [facility] 08-12-2023 06:48-0400 Respiratory rate 13 /min Lex Salmon MD Work Phone: [facility] 08-12-2023 00:25-0400 Body height 162.6 cm Lex Salmon MD Work Phone: [facility] 08-12-2023 00:25-0400 Body mass index (BMI) [Ratio] 28.01 kg/m2 Lex Salmon MD Work Phone: [facility] 08-12-2023 00:25-0400 Body temperature 97.59 [degF] Lex Salmon MD Work Phone: [facility] 08-12-2023 00:25-0400 Body weight 74.03 kg Lex Salmon MD Work Phone: [facility] 07-31-2023 14:27-0400 Body height 162.6 cm Nelsy Chávez DISH CLOTH INSPECTOR.CHILD DAY CARE PROVIDER Work Phone: [facility] 07-31-2023 14:27-0400 Body weight 69.85 kg Nelsy Chávez DISH CLOTH INSPECTOR.CHILD DAY CARE PROVIDER Work Phone: [facility] 07-31-2023 14:27-0400 Diastolic blood pressure 96 mm[Hg] Nelsy Chávez DISH CLOTH INSPECTOR.CHILD DAY CARE PROVIDER Work Phone: [facility] 07-31-2023 14:27-0400 Heart rate 76 /min Nelsy Chávez DISH CLOTH INSPECTOR.CHILD DAY CARE PROVIDER Work Phone: [facility] 07-31-2023 14:27-0400 Systolic blood pressure 136 mm[Hg] Nelsy Chávez DISH CLOTH INSPECTOR.CHILD DAY CARE PROVIDER Work Phone: [facility] 06-13-2023 10:37-0400 Body height 162.56 cm Eliceo Gómez Work Phone: [facility] 320 DO Work Phone: 06-13-2023 10:37-0400 Body mass index (BMI) [Ratio] 27.46 kg/m2 Eliceo Gómez Work Phone: [facility] 320 DO Work Phone: 06-13-2023 10:37-0400 Body surface area Derived from formula 1.78 m2 Eliceo Gómez Work Phone: [facility] 320 DO Work Phone: 06-13-2023 10:37-0400 Body weight 72.58 kg Eliceo Asiya Gómez Work Phone: [facility] 320 DO Work Phone: 06-13-2023 10:37-0400 Diastolic blood pressure 70 mm[Hg] Eliceo Asiya Szymanskijerometomasa Work Phone: [facility] 320 DO Work Phone: 06-13-2023 10:37-0400 Heart rate 70 /min Eliceo Gómez Work Phone: [facility] 320 DO Work Phone: 06-13-2023 10:37-0400 Systolic blood pressure 100 mm[Hg] Eliceo Gómez Work Phone: [facility] 320 DO Work Phone: 06-13-2023 10:37-0400 11 1 Eliceo Gómez Work Phone: [facility] 320 DO Work Phone: Comment on above: PHQ-9 TS 06-05-2023 13:23-0400 Diastolic blood pressure 68 mm[Hg] DO Shannon Lugo Stephonleigha Work Phone: [facility] 06-05-2023 13:23-0400 Heart rate 72 /min DO Shannon Gómez Work Phone: [facility] 06-05-2023 13:23-0400 Respiratory rate 18 /min DO Shannon Gómez Work Phone: [facility] 06-05-2023 13:23-0400 SaO2% (BldA) [Mass fraction] 97 % DO Shannon Gómez Work Phone: [facility] 06-05-2023 13:23-0400 Systolic blood pressure 129 mm[Hg] DO Shannon Gómez Work Phone: [facility] 06-05-2023 09:32-0400 Body height 162.56 cm DO Shannon Gómez Work Phone: [facility] 06-05-2023 09:32-0400 Body weight 73.9 kg DO Shannon Gómez Work Phone: [facility] 06-05-2023 09:31-0400 Body temperature 97.5 [degF] DO Shannon Gómez Work Phone: [facility] 01-16-2023 13:18-0400 Body height 162.6 cm [facility] 01-16-2023 13:18-0400 Body weight 68.04 kg [facility] 11-21-2022 08:00-0500 Body height 162.6 cm [facility] 2 Work Phone: [facility] 11-21-2022 08:00-0500 Body weight 64.86 kg [facility] 2 Work Phone: [facility] 10-11-2022 10:08-0500 Body height 162.6 cm Isra Masters DO Work Phone: [facility] 10-11-2022 10:08-0500 Body weight 78.02 kg Isra Masters DO Work Phone: [facility] 10-11-2022 10:08-0500 Diastolic blood pressure 97 mm[Hg] Isra Masters DO Work Phone: [facility] 10-11-2022 10:08-0500 Heart rate 89 /min Isra Masters DO Work Phone: [facility] 10-11-2022 10:08-0500 Systolic blood pressure 141 mm[Hg] Isra Masters DO Work Phone: [facility] 10-10-2022 14:30-0500 Body height 162.56 cm Annette Olexa Other [employer] Other 10-10-2022 14:30-0500 Body mass index (BMI) [Ratio] 28.66 kg/m2 Annette Olexa Other [employer] Other 10-10-2022 14:30-0500 Body weight 75.75 kg Annette Olexa Other [employer] Other 07-26-2022 11:13-0400 Body height 162.6 cm Mary Obrien MD Work Phone: [facility] 07-26-2022 11:13-0400 Body temperature 97.5 [degF] Mary Obrien MD Work Phone: [facility] 07-26-2022 11:13-0400 Body weight 77.56 kg Mary Obrien MD Work Phone: [facility] 07-26-2022 11:13-0400 Diastolic blood pressure 83 mm[Hg] Mary Obrien MD Work Phone: [facility] 07-26-2022 11:13-0400 Heart rate 95 /min Mary Obrien MD Work Phone: [facility] 07-26-2022 11:13-0400 SaO2% (BldA) [Mass fraction] 97 % Mary Obrien MD Work Phone: [facility] 07-26-2022 11:13-0400 Systolic blood pressure 110 mm[Hg] Mary Obrien MD Work Phone: [facility] 05-26-2022 11:45-0400 Body height 162.56 cm Annette Harris Other [employer] Other 05-26-2022 11:45-0400 Body mass index (BMI) [Ratio] 29.18 kg/m2 Annette Harris Other [facility] Other 05-26-2022 11:45-0400 Body weight 77.11 kg Annette Harris Other [employer] Other 05-12-2022 09:06-0400 Diastolic blood pressure 80 mm[Hg] Eliceo Gómez Work Phone: [facility] 250 DO Work Phone: 05-12-2022 09:06-0400 Systolic blood pressure 126 mm[Hg] Eliceo Gómez Work Phone: [facility] 250 DO Work Phone: 05-12-2022 08:57-0400 Body height 162.56 cm Eliceo Szymanskijerometomasa Work Phone: [facility] 250 DO Work Phone: 05-12-2022 08:57-0400 Body mass index (BMI) [Ratio] 29.87 kg/m2 Eliceo Gómez Work Phone: [facility] 250 DO Work Phone: 05-12-2022 08:57-0400 Body surface area Derived from formula 1.84 m2 Eliceo Gómez Work Phone: [facility] 250 DO Work Phone: 05-12-2022 08:57-0400 Body weight 78.93 kg Eliceo Gómez Work Phone: [facility] 250 DO Work Phone: 05-12-2022 08:57-0400 Diastolic blood pressure 80 mm[Hg] Eliceo Szymanskijerometomasa Work Phone: [facility] 250 DO Work Phone: 05-12-2022 08:57-0400 Heart rate 68 /min Eliceo Braden Stephonleigha Work Phone: [facility] [employer] 250 DO Work Phone: 05-12-2022 08:57-0400 Systolic blood pressure 130 mm[Hg] Eliceo Gómez Work Phone: [facility] [employer] 250 DO Work Phone: 05-10-2022 12:30-0400 Body height 162.56 cm Allison Lutzault Other [employer] Other 05-10-2022 12:30-0400 Body mass index (BMI) [Ratio] 29.18 kg/m2 Allison Lutzault Other [employer] Other 05-10-2022 12:30-0400 Body temperature 97.3 [degF] Allison Lutzault Other [employer] Other 05-10-2022 12:30-0400 Body weight 77.11 kg Allison Arita Other [employer] Other 05-10-2022 12:30-0400 Respiratory rate 18 /min Allison Arita Other [employer] Other 05-10-2022 12:30-0400 SaO2% (BldA) [Mass fraction] 98 % Allison Lutzault Other [employer] Other 04-22-2022 12:04-0400 Body height 162.6 cm Jessi Sheets APRN.CHILD DAY CARE PROVIDER Work Phone: [facility] 04-22-2022 12:04-0400 Body weight 77.56 kg Jessi Sheets APRN.CNP Work Phone: [facility] 04-22-2022 12:04-0400 Diastolic blood pressure 68 mm[Hg] Jessi Sheets APRN.CHILD DAY CARE PROVIDER Work Phone: [facility] 04-22-2022 12:04-0400 Heart rate 76 /min Jessi Sheets DISH CLOTH INSPECTOR.CHILD DAY CARE PROVIDER Work Phone: [facility] 04-22-2022 12:04-0400 SaO2% (BldA) [Mass fraction] 98 % Jessi Sheets DISH CLOTH INSPECTOR.CHILD DAY CARE PROVIDER Work Phone: [facility] 04-22-2022 12:04-0400 Systolic blood pressure 104 mm[Hg] Jessi Shetes DISH CLOTH INSPECTOR.CHILD DAY CARE PROVIDER Work Phone: [facility] 03-15-2022 16:30-0400 Body height 162.56 cm Annette Harris Other [employer] Other 03-15-2022 16:30-0400 Body mass index (BMI) [Ratio] 30.55 kg/m2 Annette Harris Other [employer] Other 03-15-2022 16:30-0400 Body weight 80.74 kg Annette Harris Other [employer] Other 03-15-2022 08:36-0400 Body height 162.6 cm Isra Masters DO Work Phone: [facility] 03-15-2022 08:36-0400 Body weight 83.01 kg Isra Masters DO Work Phone: [facility] 03-15-2022 08:36-0400 Diastolic blood pressure 87 mm[Hg] Isra Masters DO Work Phone: [facility] 03-15-2022 08:36-0400 Heart rate 85 /min Isra Masters DO Work Phone: [facility] 03-15-2022 08:36-0400 SaO2% (BldA) [Mass fraction] 100 % Isra Masters DO Work Phone: [facility] 03-15-2022 08:36-0400 Systolic blood pressure 133 mm[Hg] Isra Masters DO Work Phone: [facility] 03-14-2022 10:23-0400 Body height 162.6 cm Pacc 4 Work Phone: [facility] 03-14-2022 10:23-0400 Body temperature 97.2 [degF] Pacc 4 Work Phone: [facility] 03-14-2022 10:23-0400 Body weight 83.01 kg Pacc 4 Work Phone: [facility] 03-14-2022 10:23-0400 Diastolic blood pressure 76 mm[Hg] Pacc 4 Work Phone: [facility] 03-14-2022 10:23-0400 Heart rate 74 /min Pacc 4 Work Phone: [facility] 03-14-2022 10:23-0400 Respiratory rate 16 /min Pacc 4 Work Phone: [facility] 03-14-2022 10:23-0400 SaO2% (BldA) [Mass fraction] 98 % Pacc 4 Work Phone: [facility] 03-14-2022 10:23-0400 Systolic blood pressure 114 mm[Hg] Pacc 4 Work Phone: [facility] 02-18-2022 09:43-0400 Body height 162.6 cm Nelsy Chávez APRN.CHILD DAY CARE PROVIDER Work Phone: [facility] 02-18-2022 09:43-0400 Body weight 80.29 kg Nelsy Chávez APRN.CHILD DAY CARE PROVIDER Work Phone: [facility] 02-18-2022 09:43-0400 Diastolic blood pressure 70 mm[Hg] Nelsy Chávez APRN.CHILD DAY CARE PROVIDER Work Phone: [facility] 02-18-2022 09:43-0400 Systolic blood pressure 110 mm[Hg] Nelsy Chávez APRN.CHILD DAY CARE PROVIDER Work Phone: [facility] 02-08-2022 14:52-0400 Body height 162.6 cm Mary Obrien MD Work Phone: [facility] 02-08-2022 14:52-0400 Body weight 83.01 kg Mary Obrien MD Work Phone: [facility] 02-08-2022 14:52-0400 Diastolic blood pressure 76 mm[Hg] Mary Obrien MD Work Phone: [facility] 02-08-2022 14:52-0400 Heart rate 79 /min Mary Obrien MD Work Phone: [facility] 02-08-2022 14:52-0400 SaO2% (BldA) [Mass fraction] 97 % Mary Obrien MD Work Phone: [facility] [facility] 02-08-2022 14:52-0400 Systolic blood pressure 113 mm[Hg] Mary Obrien MD Work Phone: [facility] 02-08-2022 11:19-0400 Body weight 83.01 kg Magali Mitchell DISH CLOTH INSPECTOR.CHILD DAY CARE PROVIDER Work Phone: [facility] 02-08-2022 11:19-0400 Diastolic blood pressure 76 mm[Hg] Magali Mitchell DISH CLOTH INSPECTOR.CHILD DAY CARE PROVIDER Work Phone: [facility] 02-08-2022 11:19-0400 Heart rate 74 /min Magali Mitchell DISH CLOTH INSPECTOR.CHILD DAY CARE PROVIDER Work Phone: [facility] 02-08-2022 11:19-0400 Systolic blood pressure 113 mm[Hg] Magali Mitchell DISH CLOTH INSPECTOR.CHILD DAY CARE PROVIDER Work Phone: [facility] 10-20-2021 09:45-0500 Body height 162.56 cm Annette Harris Other [employer] Other 10-20-2021 09:45-0500 Body mass index (BMI) [Ratio] 31.41 kg/m2 Annette Harris Other [employer] Other 10-20-2021 09:45-0500 Body weight 83.01 kg Annette Harris Other [employer] Other 08-19-2021 17:10-0400 Body height 162.56 cm Erica Kingston Other [employer] Other 08-19-2021 17:10-0400 Body mass index (BMI) [Ratio] 31.24 kg/m2 Erica Kingston Other [employer] Other 08-19-2021 17:10-0400 Body temperature 97.3 [degF] Erica Kingston Other [employer] Other 08-19-2021 17:10-0400 Body weight 82.56 kg Erica Kingston Other [employer] Other 08-19-2021 17:10-0400 Diastolic blood pressure 82 mm[Hg] Erica Kingston Other [employer] Other 08-19-2021 17:10-0400 Respiratory rate 18 /min Erica Kingston Other [employer] Other 08-19-2021 17:10-0400 SaO2% (BldA) [Mass fraction] 98 % Erica Kingston Other [employer] Other 08-19-2021 17:10-0400 Systolic blood pressure 126 mm[Hg] Erica Vashti Other [employer] Other 08-13-2021 10:15-0400 Body height 162.56 cm Tita Daugherty Other [employer] Other 08-13-2021 10:15-0400 Body mass index (BMI) [Ratio] 30.89 kg/m2 Tita Ginty Other [employer] Other 08-13-2021 10:15-0400 Body temperature 6 [degF] Tita Ginty Other [employer] Other 08-13-2021 10:15-0400 Body weight 81.65 kg Tita Ginty Other [employer] Other 08-13-2021 10:15-0400 SaO2% (BldA) [Mass fraction] 99 % Tita Ginty Other [employer] Other 07-28-2021 09:30-0400 Body height 162.56 cm nAnette Harris Other [employer] Other 07-28-2021 09:30-0400 Body mass index (BMI) [Ratio] 30.89 kg/m2 Annette Harris Other [employer] Other 07-28-2021 09:30-0400 Body weight 81.65 kg Annette Harris Other [employer] Other Encounters Encounter Date Encounter Type Care Provider Facility Start: 12-11-2023 End: 12-12-2023 ambulatory Ace Ahumada MD Facility:[facility] Start: 11-30-2023 End: 11-30-2023 ambulatory EAGLE VAZQUEZ Not Available Start: 11-27-2023 End: 11-27-2023 ambulatory Annette Harris Other [employer] Other Start: 11-27-2023 Telephone encounter [facility]te [facility] Start: 11-23-2023 End: 11-23-2023 ambulatory Eagle Vazquez Facility:[facility] Start: 11-23-2023 End: 11-23-2023 ambulatory DO Shannon Gómez Work Phone: [facility] Work Phone: Start: 11-23-2023 End: 11-23-2023 Patient encounter procedure DO Shannon Gómez Work Phone: [facility] [place] Work Phone: Start: 11-21-2023 End: 11-21-2023 ambulatory PAM WANG Facility:[facility] Start: 11-16-2023 End: 11-16-2023 ambulatory Annette Harris Other [employer] Other Start: 11-16-2023 Telephone encounter Annette [facility] Start: 11-14-2023 End: 11-14-2023 ambulatory DIPTI ACEVEDO Not Available Start: 11-14-2023 End: 11-14-2023 ambulatory EAGLE VAZQUEZ Not Available Start: 11-10-2023 End: 11-10-2023 ambulatory ELICEO GÓMEZ Not Available Start: 11-08-2023 Telephone encounter Patricia Zamora [facility] Start: 10-31-2023 End: 11-01-2023 ambulatory RON KING Not Available Start: 10-27-2023 End: 10-28-2023 ambulatory EAGLE VAZQUEZ Not Available Start: 10-26-2023 Telephone encounter Annette [facility] Start: 10-26-2023 End: 10-26-2023 ambulatory RON KING [facility] Other Start: 10-24-2023 End: 10-24-2023 ambulatory EAGLE VAZQUEZ Not Available Start: 10-23-2023 End: 10-23-2023 ambulatory [facility] Start: 10-10-2023 End: 10-10-2023 ambulatory PAM WANG Facility:[facility] Start: 10-06-2023 End: 10-06-2023 ambulatory Annette Harris Other Located [facility] [place] Other Start: 10-06-2023 Telephone encounter An[facility]te [facility] Start: 10-03-2023 End: 10-04-2023 ambulatory ELICEO GÓMEZ Not Available Start: 09-27-2023 End: 09-27-2023 ambulatory Pam Wang MD Work Phone: Urogynecology Comment on above: Worsening Start: 09-27-2023 Refill Doris Juana DISH CLOTH INSPECTOR.CHILD DAY CARE PROVIDER Work Phone (unformatted): [phone] Urogynecology Comment on above: Med Change Request Start: 09-21-2023 End: 09-21-2023 ambulatory ELICEO GÓMEZ Not Available Start: 09-11-2023 End: 09-11-2023 ambulatory PAM WANG Facility:[facility] Start: 08-23-2023 End: 08-23-2023 ambulatory [facility] Start: 08-12-2023 End: 08-12-2023 Emergency department patient visit LEX SALMON [facility] Start: 08-12-2023 End: 08-12-2023 Emergency department patient visit Lex Salmon MD Work Phone: [facility] Emergency Dept Comment on above: Upper abdominal pain (Primary Dx) Start: 08-09-2023 ambulatory Mary Obrien MD Work Phone: Colorectal Surgery Comment on above: Response Start: 08-07-2023 End: 08-07-2023 ambulatory Mary Obrien MD Work Phone: Colorectal Surgery Comment on above: Colon Start: 08-01-[address] Eliceo Gómez Facility: Start: 07-31-2023 End: 07-31-2023 ambulatory NELSY CHÁVEZ Facility:[facility] Start: 07-31-2023 End: 07-31-2023 Patient encounter procedure Nelsy Chávez DISH CLOTH INSPECTOR.CHILD DAY CARE PROVIDER Work Phone: URO/Gynecology Comment on above: Incomplete bladder e mptying (Primary Dx); Constipation, unspecified constipation type; Urinary urgency; Urinary frequency; Nocturia Start: 07-25-2023 End: 07-26-2023 ambulatory MATTEO QUINONES [facility] Start: 07-17-2023 (Procedure) Short Annette Pradeeptonia [facility] Start: 07-17-2023 End: 07-17-2023 ambulatory Annette Harris Other Located [facility] [place] Other Start: 07-12-2023 End: 07-12-2023 ambulatory Annette Harris Other Located [facility] [place] Other Start: 07-12-2023 Telephone encounter An[facility]te [facility] Start: 06-13-2023 Office consultation new/estab patient 60 min Eliceo Gómez Work Phone: [facility] 320 DO Work Phone: Start: 06-13-[address] Dipti Anaya Facility: Start: 06-08-2023 End: 06-08-2023 ambulatory [facility] Start: 06-07-[address] Dipti Anaya Facility:[id number] Start: 06-05-2023 End: 06-05-2023 Emergency department patient visit Anibal Valle Facility:[facility] Start: 06-05-2023 End: 06-05-2023 Emergency department patient visit DO Shannon Gómez Work Phone: [facility]Emer[facility] Work Phone: Start: 05-31-2023 End: 05-31-2023 ambulatory SIOMARA MONTAGUE [facility] Start: 05-28-2023 ambulatory Pam rios MD Work Phone: URO/Gynecology Comment on above: Problems with urinat ing Start: 05-22-2023 End: 05-22-2023 ambulatory RADHA CASTREJON [facility] Start: 05-17-2023 End: 05-17-2023 ambulatory [facility] Start: 05-17-2023 End: 05-17-2023 ambulatory RADHA CASTREJON [facility] Start: 04-26-2023 End: 04-26-2023 ambulatory Annette Harris Other [employer] Other Start: 04-26-2023 Office outpatient vi sit 25 minutes Annette Harris [facility] [place] Start: 04-17-2023 [facility] Start: 04-11-2023 Refill Isra S Clin e DO Work Phone: Gastroenterology Comment on above: Refill Request Start: 04-10-2023 ambulatory [facility] Start: 04-04-2023 End: 04-05-[address] Isatu GÓMEZ Facility: Start: 03-20-2023 ambulatory [facility] Start: 03-19-2023 ambulatory Isra S Clin e DO Work Phone: Gastroenterology Comment on above: Stool sample results Start: 03-17-2023 End: 03-17-2023 ambulatory Niecy Duron Facility:[facility] Start: 03-17-2023 End: 03-17-2023 ambulatory DO Shannon Gómez Work Phone: [facility] Work Phone: Start: 03-17-2023 End: 03-17-2023 Discharged Recurring DO Shannon Gómez Work Phone: [facility]-Physical [facility] [place] Work Phone: Start: 03-16-2023 End: 03-16-2023 ambulatory ELICEO GÓMEZ JR Facility:[facility] Start: 03-15-2023 Orders Only Isra S Clin e DO Work Phone: Gastroenterology Comment on above: Diarrhea due to power bsorption (Primary Dx) What lab? Start: 03-06-2023 End: 03-06-[address] Isatu GÓMEZ Facility:[facility] Start: 03-06-2023 [facility] Start: 02-27-2023 [facility] Start: 02-21-2023 End: 02-22-[address] Isatu GÓMEZ Facility:[facility] Start: 02-20-2023 [facility] Start: 02-19-2023 End: 02-19-[address] Isatu GÓMEZ Facility:[facility] Start: 02-16-2023 End: 02-16-2023 ambulatory [facility] Start: 02-13-2023 ambulatory [facility] Start: 02-06-2023 ambulatory [facility] Start: 02-02-2023 End: 02-02-2023 ambulatory [facility] Start: 01-31-2023 End: 02-01-2023 ambulatory NIECY KAREEM Facility:[facility] Start: 01-27-2023 End: 01-27-[address] Isatu GÓMEZ Facility:[facility] Start: 01-23-2023 ambulatory [facility] Start: 01-20-2023 ambulatory Winston chand DO Work Phone: General Surgery Comment on above: Clarification Start: 01-19-2023 ambulatory Winston chand DO Work Phone: General Surgery Comment on above: General Start: 01-16-2023 Encounter for other preprocedural examination PAM [facility] Start: 01-16-2023 Telephone encounter Mounika farrell PA-C Work Phone: Pre Anesthesia Comment on above: Appointment (Pt has not arrived for her 1 pm appointment) Start: 01-16-2023 End: 01-16-2023 [facility] Start: 01-16-2023 End: 01-16-2023 ambulatory WINSTON HANNAH Pre Anesthesia Comment on above: Preop examination (P rimary Dx); Nausea; CHUCKIE (obstructive sleep apnea); Mild persistent asthma without complication; Gastroesophageal reflux disease, unspecified whether esophagitis present; Gastroparesis Start: 01-16-2023 End: 01-16-2023 Preprocedural examination done [facility] Pre Anesthesia Start: 01-11-2023 Telephone encounter Winston Keys Isatu aceves DO Work Phone: General Surgery Comment on above: Schedule Procedure Start: 01-10-2023 End: 01-10-2023 ambulatory Winstonaureliano Hannah DO Work Phone: General Surgery Comment on above: Pylorospasm (Primary Dx); Functional dyspepsia; Gastroesophageal reflux disease with esophagitis without hemorrhage Start: 01-10-2023 End: 01-10-2023 Telemedicine consultation with patient Winston Keys Brielle DO Work Phone: [employer] Start: 01-06-2023 End: 01-06-2023 ambulatory ANNETTE SWANSON [facility] Start: 01-02-2023 End: 01-02-2023 ambulatory CARMEN DORSEY [facility] Start: 12-28-2022 ambulatory Yoni Tuttle MD Work Phone: NEUROLOGY Comment on above: No response Start: 12-26-2022 End: 12-26-2022 ambulatory WINSTON HANNAH Facility:[facility] Start: 12-26-2022 End: 12-26-2022 Subsequent [...] End: 12-22-2022 Telemedicine consultation with patient Winston Keys Brielle DO Work Phone: [employer] Start: 12-21-2022 End: 12-22-2022 ambulatory SADE WILDE Facility: Start: 12-15-2022 End: 12-15-2022 ambulatory MARY OBRIEN Facility:[facility] Start: 12-15-2022 End: 12-15-2022 Manual pelvic examination Mary Obrien MD Work Phone: Colorectal Surgery Comment on above: Colonic inertia (Phoebe unique Dx); Pelvic floor dysfunction; Nausea; Gastroparesis Start: 12-15-2022 End: 12-15-2022 Telemedicine consultation with patient Mary Obrien MD Work Phone: [facility] Start: 12-14-2022 ambulatory Yoni Tuttle MD Work Phone: NEUROLOGY Comment on above: Right number? Start: 12-12-2022 ambulatory CARMEN DORSEY [facility] Start: 12-09-2022 End: 12-09-2022 ambulatory Mary Obrien [...] 12-05-2022 ambulatory Winston chand DO Work Phone: [facility] Start: 12-02-2022 ambulatory Isra S Clin blanca DO Work Phone: [facility] Start: 12-02-2022 Telephone encounter Yoni Tuttle MD Work Phone: Neurology Comment on above: Returning Nurse Call Start: 12-01-2022 End: 12-02-2022 ambulatory NIECY DURON Facility: Start: 11-30-2022 End: 11-30-2022 ambulatory ELICEO GÓMEZ JR Facility:[facility] Start: 11-30-2022 End: 11-30-2022 ambulatory Isra Masters DO Work Phone: Gastroenterology Comment on above: Chronic idiopathic c onstipation (Primary Dx); Nausea Start: 11-30-2022 End: 11-30-2022 Telemedicine consultation with patient Isra Masters DO Work Phone: [facility] [place] Start: 11-24-2022 ambulatory Isra Thorpe Clin e DO Work Phone: Gastroenterology Comment [...] End: 11-21-2022 Admission to establishment [facility] 2 Work Phone: [facility] Start: 11-21-2022 End: 11-21-2022 Preprocedural examination done Pac 2 Work Phone: Pre Anesthesia Start: 11-17-2022 ambulatory Annmarie Gillespie RN Gastroe nterology Start: 11-17-2022 Patient encounter procedure Annmarie Gillespie RN [facility] Start: 11-17-2022 End: 11-17-2022 Subsequent hospital visit by physician Capsule Work Phone: Gastroenterology Start: 11-16-2022 ambulatory Yoni Tuttle MD Work Phone: NEUROLOGY Comment on above: The delay Start: 11-15-2022 ambulatory Yoni Tuttle MD Work Phone: NEUROLOGY Comment on above: Labs Start: 11-14-2022 End: 11-15-2022 ambulatory NIECY DURON Facility:[facility] Start: 11-10-2022 Telephone encounter Annmarie Gillespie RNquality control checker Comment on above: Preparations For Pro cedures [...] Smart pill Start: 10-24-2022 Telephone encounter Isra Galarzae DO Work Phone: Gastroenterology Comment on above: Patient Question Start: 10-23-2022 Encounter for preprocedural laboratory examination SADE WILDE [facility] Start: 10-20-2022 End: 10-20-2022 ambulatory Isra Ila Masters DO Work Phone: Gastroenterology Comment on above: Smart pill Cpap Start: 10-19-2022 End: 10-19-2022 ambulatory JENNIFER GARCIA Facility:[facility] Start: 10-18-2022 Refill Isra Ila Clin e DO Work Phone: Gastroenterology Comment on above: Refill Request Start: 10-17-2022 Telephone encounter Yoni Tuttle MD Work Phone: Neurology Comment on above: PAP Rx Faxed (DME: S HS ) Start: 10-17-2022 End: 10-18-[address] Isatu GÓMEZ Facility:[facility] Start: 10-14-2022 End: 10-14-2022 ambulatory DO Shannon Gómez Work Phone: [facility] Work Phone: Start: 10-14-2022 End: 10-14-2022 Discharged Recurring DO Shannon Parish Szymanskileigha Work Phone: [facility] [place] Work Phone: Start: 10-13-2022 End: 10-14-2022 ambulatory [facility] Facility:[facility] Start: 10-13-2022 End: 10-14-2022 Encounter for preprocedural laboratory examination [facility] Facility:[facility] Start: 10-11-2022 End: 10-11-2022 ambulatory Annette Cartagena Other [employer] Other Start: 10-11-2022 Telephone encounter Annette Cartagena [facility] [employer] Start: 10-11-2022 End: 10-11-2022 Patient encounter procedure Isra Masters Work Phone: Gastroenterology Comment on above: Gas bloat syndrome ( Primary Dx); Chronic idiopathic constipation; Gastroparesis Start: 10-10-2022 End: 10-10-2022 ambulatory Annette Cartagena Other [employer] Other Start: 10-10-2022 Office outpatient ne w 30 minutes Annette Cartagena [facility] Start: 10-06-2022 End: 10-06-2022 ambulatory Annette Harris Other [employer] Other Start: 10-06-2022 Patient encounter procedure Annette Harris [facility] [place] Start: 09-28-2022 Encounter for other preprocedural examination SADE Keys [facility] Start: 09-28-2022 Encounter for preprocedural cardiovascular examination SADE Zoya [facility] Start: 09-26-2022 End: 09-27-2022 ambulatory SADE Keys [facility] Facility:[facility] Start: 09-22-2022 Office outpatient vi sit 25 minutes Annette Harris [facility] [place] Start: 09-22-2022 Telephone encounter Annette Harris [facility] [place] Start: 09-22-2022 End: 09-22-2022 ambulatory DO Shannon Gómez Work Phone: [employer] Other Start: 09-22-2022 End: 09-22-2022 Patient encounter procedure DO Shannon Gómez Work Phone: [facility] Start: 09-14-2022 End: 09-14-2022 ambulatory Eliceo Gómez Other [employer] Other Start: 09-14-2022 Encounter by sierra Gómez [facility] [place] Start: 09-14-2022 Office outpatient vi sit 15 minutes Annette Harris [facility] [place] Start: 09-14-2022 Telephone encounter An[facility]te [facility] Start: 08-16-2022 ambulatory Mary Obrien MD Work Phone: Colorectal Surgery Comment on above: CT results Ct scan result quest ion Start: 08-16-2022 E-mail encounter kendra m caregiver Mary Obrien MD Work Phone: [facility] Start: 08-12-2022 End: 08-12-2022 Subsequent hospital visit by physician Ct Prep [facility] Start: 07-27-2022 End: 07-28-2022 ambulatory [facility] Facility: Start: 07-26-2022 Telephone encounter Isra Masters [...] 06-08-2022 End: 06-08-2022 ambulatory Annette Harris Other [employer] Other Start: 05-30-2022 Refill Mary Obrien MD Work Phone: Colorectal Surgery Comment on above: Refill Request Start: 05-26-2022 End: 05-26-2022 ambulatory Annette Harris Other [employer] Other Start: 05-26-2022 Office outpatient vi sit 25 minutes Annette Harris [facility] [place] Start: 05-12-2022 Office consultation new/estab patient 60 min Eliceo Gómez Work Phone: [facility] 250 DO Work Phone: Start: 05-10-2022 End: 05-10-2022 ambulatory Allison Arita Other [employer] Other Start: 05-10-2022 Office outpatient vi sit 15 minutes Allison Arita [facility] Start: 05-03-2022 Telephone encounter Mary brewer MD Work Phone: Colorectal Surgery Comment on above: Certified Health 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 - O ther Start: 04-26-2022 Telephone encounter Mary brewer MD Work Phone: Colorectal Surgery Comment on above: Patient Question Start: 04-22-2022 End: 04-22-2022 Patient encounter procedure Jessi Sheets DISH CLOTH INSPECTOR.CHILD DAY CARE PROVIDER Work Phone: Colorectal Surgery Comment on above: Follow-up examinatio n after colorectal surgery (Primary Dx); Pelvic floor dysfunction Start: 04-17-2022 End: 04-17-2022 ambulatory CHASITY FREIRE . Facility: Start: 04-07-2022 Telephone encounter Rachael Keys [facility] Department Comment on above: PostOp Follow-up Start: 03-22-2022 Telephone encounter Mary brewer MD Work Phone: Colorectal Surgery Comment on above: Patient Question Start: 03-15-2022 End: 03-15-2022 ambulatory Annette Harris Other [employer] Other Start: 03-15-2022 Office outpatient vi sit 15 minutes Annette BRICE [facility] [place] Start: 03-15-2022 Telephone encounter Mary brewer MD Work Phone: Colorectal Surgery Comment on above: Certified Health 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 - O ther Medication Preauthor ization (PA for Dexilant renewal) Outside Labs Results Start: 03-15-2022 End: 03-15-2022 Patient encounter procedure Isra Masters Work Phone: Gastroenterology Comment on above: Gastroesophageal ref lux disease, unspecified whether esophagitis present; Chronic idiopathic constipation Start: 03-14-2022 End: 03-14-2022 [facility] 4 Work Phone: Pre Anesthesia Comment on above: Preop examination (P rimary Dx); Attention to ileostomy ([facility]); Primary hypertension; Gastroparesis; Gastroesophageal reflux disease, unspecified whether esophagitis present; Mild persistent asthma without complication; Bipolar 1 disorder ([facility]); Obesity (BMI 30.0-34.9) Start: 03-14-2022 End: 03-14-2022 Preprocedural examination done [facility] Work Phone: Pre Anesthesia Start: 02-28-2022 Telephone encounter Isra Masters Work Phone: Gastroenterology Comment on above: Appointment (for scr ipt refill) Start: 02-18-2022 End: 02-18-2022 Patient encounter procedure Nelsy Chávez APRN.CHILD DAY CARE PROVIDER Work Phone: URO/Gynecology Comment on above: Postoperative state (Primary Dx) Start: 02-11-2022 End: 02-11-2022 ambulatory Flaca Bartholomew PT Work Phone: [facility] Start: 02-11-2022 End: 02-11-2022 Follow-up encounter Flaca Bartholomew PT Work Phone: [place] [facility] Physical Therapy Comment on above: Pelvic floor dysfunc tion (Primary Dx); Lack of coordination; Follow-up examination after colorectal surgery Start: 04-06-2022 (Procedure) Short Annette Felter [facility] Start: 02-09-2022 End: 02-09-2022 ambulatory Annette Harris Other [employer] Other Start: 02-08-2022 End: 02-08-2022 Patient encounter procedure Mary Obrien MD Work Phone: Colorectal Surgery Comment on above: Follow-up examinatio n after colorectal surgery (Primary Dx) Post-operative state (Primary Dx); Yeast infection of the skin Start: 02-01-2022 Refill Isra S Clin e DO Work Phone: Gastroenterology Comment on above: Refill Request (dexl ansoprazole) Start: 01-31-2022 End: 01-31-2022 ambulatory Newton Woodward PT Work Phone: [facility] Start: 01-31-2022 End: 01-31-2022 Follow-up encounter Newton Woodward PT Work Phone: [facility] Physical Therapy Comment on above: Pelvic floor dysfunc tion (Primary Dx); Lack of coordination; Follow-up examination after colorectal surgery Start: 11-25-2021 End: 11-25-2021 ambulatory Annette Harris Other [employer] Other Start: 11-25-2021 Office outpatient vi sit 25 minutes Annette Harris [facility] [place] Start: 11-17-2021 End: 11-18-2021 ambulatory [facility] Start: 10-20-2021 End: 10-20-2021 ambulatory Annette Harris Other [employer] Other Start: 10-20-2021 Office outpatient vi sit 25 minutes Annette Pradeeptonia [facility] [place] Start: 10-13-2021 (Procedure) Win Harris [facility] Start: 10-13-2021 End: 10-13-2021 ambulatory Annette Harris Other [employer] Other Start: 09-06-2021 Office outpatient vi sit 25 minutes Annette Harris [facility] [place] Start: 08-19-2021 Office outpatient vi sit 15 minutes Erica Kingston [facility] Start: 08-13-2021 Office outpatient vi sit 15 minutes Tita Daugherty [facility] Start: 08-12-2021 Office outpatient vi sit 25 minutes Annette Harris [facility] [place] Start: 07-28-2021 Office outpatient vi sit 25 minutes Annette Harris [facility] [place] Procedures Date Procedure Procedure Detail Performing Clinician Start: 11-23-2023 Radionuclide imaging of liver and/or biliary tract using radioactive isotope DO Shannon Gómez Work Phone: Start: 10-23-2023 Follow-up visit Follow-up PAULINE CHRISTENSEN Start: 10-23-2023 Adult depression scr eening assessment Patriciasary Zamora Start: 08-12-2023 Assay of troponin quantitative Lev Ritter APRN CHILD DAY CARE PROVIDER Work Phone: Start: 08-12-2023 Ct abdomen & pelvis w/contrast material Lev Ritter APRN CHILD DAY CARE PROVIDER Work Phone: Start: 08-12-2023 Urnls dip stick/tabl et reagent auto microscopy Lex Salmon MD Work Phone: Start: 08-12-2023 Basic metabolic pane l calcium total Lex Salmon MD Work Phone: Start: 08-12-2023 DARK GREEN TOP Lex buitrago MD Work Phone: Start: 08-12-2023 GOLD TOP Lex urbina MD Work Phone: Start: 08-12-2023 Hepatic function panel Lev Ritter APRN CHILD DAY CARE PROVIDER Work Phone: Start: 08-12-2023 LIGHT BLUE TOP [...] et rgnt auto w/o microscopy Nelsy Chávez DISH CLOTH INSPECTOR.CHILD DAY CARE PROVIDER Work Phone: Start: 06-05-2023 Plain chest X-ray [...] - S jay or Plasma Nelsy Chávez DISH CLOTH INSPECTOR.CHILD DAY CARE PROVIDER Work Phone: Start: 02-08-2022 Urnls dip stick/tabl et rgnt auto w/o microscopy Magali Mitchell DISH CLOTH INSPECTOR.CHILD DAY CARE PROVIDER Work Phone: Start: 12-16-2021 Antibody screen Comment on above: Performed By: #### T SCR30 ####[place] [phone] Start: 10-15-2021 Antibody screen Comment on above: Performed By: #### T SCR30 ####[address] [phone] Start: 06-28-2021 Mammography Mary brewer MD Work Phone: Start: 02-18-2021 H/O: surgery S/P nasal septoplasty C estephania Zamora Start: 02-18-2021 History of tonsillectomy S/P tonsill ectomy Patricia Zamora Colonoscopy Eliceo Gómez Work Phone: Hysterectomy Eliceo Gómez Work Phone: [...] DTAP/TDAP/TD VACCINE (2 - Td or Tdap) [facility] Start: 06-22-2030 DTaP,Tdap and Td Vaccines (2 - Td or Tdap) DTaP,Tdap and Td Vaccines (2 - Td or Tdap) [facility] Start: 06-22-2030 Urine microalbumin profile DTaP,Tdap,Td Vaccine (2 - Td or Tdap) [facility] Start: 12-05-2027 COLORECTAL CANCER SCREENING COLORECTAL CANCER SCREENING [facility] Start: 12-05-2027 SIGMOIDOSCOPY SIGMOIDOSCOPY [facility] Start: 03-02-2027 Lipid 1996 panel - S jay or Plasma Lipid Screening [facility] Start: 03-02-2027 LIPID SCREEN LIPID SCREEN [facility] Start: 04-05-2025 DIABETES SCREEN DIABETES SCREEN [facility] Start: 04-05-2025 Diabetes Screening Diabetes Screenin g [facility] Start: 03-14-2025 DIABETES SCREEN DIABETES SCREEN [facility] Start: 12-26-2024 DIABETES SCREEN DIABETES SCREEN [facility] Start: 10-23-2024 Adult BMI Screening Adult BMI Screen ing [facility] Start: 10-23-2024 Depression Screening Depression Scre ening [facility] Start: 10-23-2024 Tobacco Screening Tobacco Screening [facility] Start: 04-18-2024 End: 04-18-2024 Patient encounter procedure 04/18/2024 1:30 PM EDT Office Visit [facility] [address] [place] [phone] Pauline Christensen MD [address] [place] [address], [address] [place] [address] [facility] Start: 09-27-2023 End: 12-27-2023 Bacteria identified in Urine by Culture URINE CULTURE Microbiology Routine Burning with urination Expected: 09/27/2023, Expires: 12/27/2023 [facility] Work Phone: Comment on above: Expected: 09/27/2023 , Expires: 12/27/2023 Start: 09-14-2023 Screening for malign ant neoplasm of breast MAMMOGRAM [facility] Start: 08-01-2023 FUV, Provider: Dpiti Anaya, Status: Pen, Time: 11:00 AM FUV, Provider: Dipti Anaya, Status: Gopal, Time: 11:00 AM [facility] Work Phone: Start: 07-07-2023 Covid-19 Vaccine ( season) Covid-19 Vaccine ( season) [facility] Start: 07-07-2023 Influenza vaccination C [facility] Start: 07-07-2023 Influenza vaccinatio n given INFLUENZA VACCINE (#1) [facility] Start: 06-05-2023 [facility] Start: 04-22-2023 BP CONTROLLED (<130/80) BP CONTROLLE D (<130/80) [facility] Start: 03-14-2023 BP CONTROLLED (<130/80) BP CONTROLLE D (<130/80) [facility] Start: 02-18-2023 BP CONTROLLED (<130/80) BP CONTROLLE D (<130/80) [facility] Start: 02-08-2023 BP CONTROLLED (<130/80) BP CONTROLLE D (<130/80) [facility] Start: 01-18-2023 BP CONTROLLED (<130/80) BP CONTROLLE D (<130/80) [facility] Start: 11-06-2022 DEPRESSION ASSESSMENT DEPRESSION ASS ESSMENT [facility] Start: 09-22-2022 [facility] Start: 08-02-2022 End: 08-25-2023 Ct abdomen & pelvis w/contrast material CT ABD/PEL W IVCON Radiology Routine Periumbilical abdominal pain Expected: 08/02/2022, Expires: 08/25/2023 [facility] Work Phone: Comment on above: Expected: 08/02/2022 , Expires: 08/25/2023 Start: 07-07-2022 Influenza vaccination C [facility] Start: 06-28-2022 Mammography [facility] Start: 2022 Administration of varicella zoster vaccine Zoster (Shingles) Vaccine (1 of 2) [facility] Start: 2022 COVID-19 VACCINE (4 - Booster for Pfizer series) COVID-19 VACCINE (4 - Booster for Pfizer series) [facility] Start: 2022 SHINGRIX VACCINE (1 of 2) SHINGRIX VACCINE (1 of 2) [facility] Start: 2022 Zoster vaccine hzv l annika for subcutaneous use ZOSTER (SHINGLES) VACCINE (1 of 2) [facility] Start: 04-01-2022 End: 06-01-2022 CBC W Auto Differential panel - Blood CBC + DIFF Lab Routine Follow-up examination after colorectal surgery Expected: 04/01/2022, Expires: 06/01/2022 [facility] Work Phone: Comment on above: Expected: 04/01/2022 , Expires: 06/01/2022 Start: 04-01-2022 End: 06-01-2022 Comprehensive metabolic 2000 panel - Serum or Plasma COMP METABOLIC PANEL Lab Routine Follow-up examination after colorectal surgery Expected: 04/01/2022, Expires: 06/01/2022 [facility] Work Phone: Comment on above: Expected: 04/01/2022 , Expires: 06/01/2022 Start: 04-01-2022 End: 06-01-2022 TYPE AND SCREEN,30 DAY TYPE AND SCREEN,30 DAY Blood Bank Routine Follow-up examination after colorectal surgery Expected: 04/01/2022, Expires: 06/01/2022 [facility] Work Phone: Comment on above: Expected: 04/01/2022 , Expires: 06/01/2022 Start: 01-19-2022 COVID-19 VACCINE (4 - Booster for Pfizer series) COVID-19 VACCINE (4 - Booster for Pfizer series) [facility] Start: 01-19-2022 COVID-19 VACCINE (4 - Pfizer series) COVID-19 VACCINE (4 - Pfizer series) [facility] Start: 11-06-2021 DEPRESSION ASSESSMENT DEPRESSION ASS ESSMENT [facility] Start: 07-07-2021 Influenza vaccination INFLUENZA (#1) [facility] Start: 2017 COLOGUARD (FIT-DNA) COLOGUARD (FIT-D NA) [facility] Start: 2017 Colonoscopy COLONOSCOPY [facility] Start: 2017 COLORECTAL CANCER SCREENING COLORECTAL CANCER SCREENING [facility] Start: [address] COLONOGRAPHY [facility] Start: 2017 FECAL OCCULT BLOOD FECAL OCCULT BLOO D [facility] Start: 2017 LIPID SCREEN LIPID SCREEN [facility] Start: 2017 Screening for malign ant neoplasm of colon [facility] Start: 2017 SIGMOIDOSCOPY SIGMOIDOSCOPY [facility] Start: 2012 Mammography MAMMOGRAM [facility] Start: 10-11-2008 Hepatitis B Vaccine (3 of 3 - 19+ 3-dose series) Hepatitis B Vaccine (3 of 3 - 19+ 3-dose series) [facility] Start: 2002 HPV TESTING HPV TESTING [facility] Start: 1993 PAP TESTING PAP TESTING [facility] Start: 1991 Urine microalbumin profile [facility] Start: 1990 Adult BMI Follow Up Plan Adult BMI Follow Up Plan [facility] [employer] [facility] Start: 1990 ANNUAL PCP TEAM NOUGAT CANDY MAKER HELPER ALEKSANDAR DISEASE VISIT ANNUAL PCP TEAM CHRONIC DISEASE VISIT [facility] Start: 1990 ANNUAL WELLNESS VISIT ANNUAL WELLNES S VISIT [facility] Start: 1990 BP CONTROLLED (<130/80) BP CONTROLLE D (<130/80) [facility] Start: 1990 HEPATITIS C SCREENING HEPATITIS C SC REENING [facility] Start: 1990 HIV SCREENING HIV SCREENING [facility] Start: 1984 Adult depression screening assessment DEPRESSION SCREENING [facility] Start: 1984 Depression screening using PHQ-9 (Patient Health Questionnaire 9) score DEPRESSION SCREENING [facility] Start: 1978 PNEUMOCOCCAL (1 - PCV) PNEUMOCOCCAL (1 - PCV) [facility] Start: 1978 Pneumococcal vaccination Pneum ococcal Vaccine (1 - PCV) [facility] Start: 1972 HEPATITIS B (1 of 3 - 3-dose series) HEPATITIS B (1 of 3 - 3-dose series) [facility] Start: 1972 Hepatitis B Vaccine (1 of 3 - 3-dose series) Hepatitis B Vaccine (1 of 3 - 3-dose series) [facility] Start: 1972 HPV/COTEST HPV/COTEST [facility] Start: 1972 Screening for malign ant neoplasm of cervix [facility] 12 lead ECG EKG 12 lead ECG REYNA 08/12/2023 12:28 AM EDT [facility] Work Phone: CT Abdomen and Pelvi s W contrast IV CT Abdomen / Pelvis With IV Contrast ONLY Imaging STAT 08/12/2023 5:42 AM [employer] [facility] End: 01-12-2024 EGD - THERAPEUTIC, EUS, OR TUBE INTERVENTIONS EGD - THERAPEUTIC, EUS, OR TUBE INTERVENTIONS Endoscopy Routine Gastroparesis 1 Occurrences starting 01/11/2023 until 01/12/2024 [facility] Work Phone: Comment on above: 1 Occurrences starti ng 01/11/2023 until 01/12/2024 FAT, FECAL QUAL FAT, FECAL QUAL Lab Routine Diarrhea due to malabsorption Ordered: 03/15/2023 [facility] Work Phone: Comment on above: Ordered: 03/15/2023 End: 10-11-2023 Gi transit & pres ravinder wireless capsule w/interp CAPSULE ENDOSCOPY SMART Endoscopy Routine Gastroparesis 1 Occurrences starting 10/11/2022 until 10/11/2023 [facility] Work Phone: Comment on above: 1 Occurrences starti ng 10/11/2022 until 10/11/2023 End: 12-17-2023 PAP TITRATION PSG (CPAP, BIPAP, ASV) PAP TITRATION PSG (CPAP, BIPAP, ASV) Procedures Routine CHUCKIE (obstructive sleep apnea) 1 Occurrences starting 11/17/2022 until 12/17/2023 [facility] Work Phone: Comment on above: 1 Occurrences starti ng 11/17/2022 until 12/17/2023 Patient Education Chest Pain, Adult ED [facility] Work Phone: Patient referral [facility] Work Phone: SARS-CoV-2 (COVID-19 ) RNA [Presence] in Respiratory specimen by JOSÉ MIGUEL with probe detection SELF CHECK COVID Microbiology Routine Follow-up examination after colorectal surgery Ordered: 02/09/2022 [facility] Work Phone: Comment on above: Ordered: 02/09/2022 End: 11-30-2023 SIGMOIDOSCOPY SIGMOIDOSCOPY Endoscopy Routine Chronic idiopathic constipation 1 Occurrences starting 11/30/2022 until 11/30/2023 [facility] Work Phone: Comment on above: 1 Occurrences starti ng 11/30/2022 until 11/30/2023 End: 08-12-2023 Troponin I.cardiac [Mass/volume] in Serum or Plasma Troponin I (One time) Lab Timed Once for 1 Occurrences starting 08/12/2023 until 08/12/2023 [employer] Work Phone: Comment on above: Once for 1 Occurrenc es starting 08/12/2023 until 08/12/2023 URODYNAMICS WHI URODYNAMICS WHI Procedures Routine Incomplete bladder emptying Urinary urgency Urinary frequency Nocturia Ordered: 07/31/2023 [facility] Work Phone: Comment on above: Ordered: 07/31/2023 [facility] Immunizations Immunization Date Immunization Notes Care Provider Shante rai 08-17-2022 influenza virus vaccine, unspecified formulation Nelsy Chávez APRN.CHILD DAY CARE PROVIDER Work Phone: [facility] 11-24-2021 Pfizer-BioNTech COVID-19 Vacc 30 MCG/0.3ML Intramuscular Suspension Eliceo Gómez Work Phone: [facility] 250 DO Work Phone: 08-19-2021 KENALOG - 10 mg Ericahero keys Other Located Within [facility] Other 05-11-2021 Pfizer-BioNTech COVID-19 Vacc 30 MCG/0.3ML Intramuscular Suspension Eliceo Gómez Work Phone: [facility] DO Work Phone: 04-20-2021 Pfizer-BioNTech COVID-19 Vacc 30 MCG/0.3ML Intramuscular Suspension Eliceo Gómez Work Phone: [facility] 250 DO Work Phone: 09-02-2020 influenza, injectabl e, quadrivalent, preservative free Eliceo Gómez Work Phone: [facility] [employer] DO Work Phone: 08-06-2020 influenza, injectabl e, quadrivalent, preservative free Eliceo Gómez Work Phone: [facility] [employer] DO Work Phone: 06-22-2020 tetanus toxoid, redu nayeli diphtheria toxoid, and acellular pertussis vaccine, adsorbed Eliceo Gómez Work Phone: [facility] [employer] DO Work Phone: 02-01-2020 Toradol per 15 mg Annette turpin Other [employer] Other 07-15-2018 influenza, seasonal, injectable, preservative free Eliceo Gómez Work Phone: [facility] [employer] DO Work Phone: 07-14-2016 Rocephin 500 mg Annette Reynoso r Other [employer] Other 05-12-2008 hepatitis B vaccine, adult dosage Eliceo Gómez Work Phone: [facility] [employer] DO Work Phone: 04-11-2008 hepatitis B vaccine, adult dosage Eliceo Gómez Work Phone: [facility] [employer] DO Work Phone: Payers Date Payer Category Payer Self-pay [id number] 2022 Unknown 2021 Medicaid [employer] [id number] 2021-Present [phone] [address] [place] [address] Medicaid [id number]. [id number] 2021 Medicaid [id number] 1.13.159.2.7.3. [id number] 1972 Unknown [id number] 2.16.840.1.197942.3.579.2.176 1972 Unknown [id number] 2.16.840.1.448085.3.579.2.593 1972 Unknown [id number] 2.16.840.1.785445.3.579.2.593 1972 Unknown [id number] 2.16.840.1.491932.3.579.2.593 1972 Unknown [id number] 2.16.840.1.195323.3.579.2.593 1972 Unknown [id number] 2.16.840.1.249195.3.579.2.593 1972 Unknown [id number] 2.16.840.1.919907.3.579.2.593 1972 Unknown [id number] 2.16.840.1.921259.3.579.2.593 1972 Unknown [id number] 2.16.840.1.553849.3.579.2.593 1972 Unknown [id number] 2.16.840.1.035530.3.579.2.593 1972 Unknown [id number] 2.16.840.1.607061.3.579.2.593 1972 Unknown [id number] 2.16.840.1.075122.3.579.2.593 1972 Unknown [id number] 2.16.840.1.943073.3.579.2.593 1972 Unknown [id number] 2.16.840.1.331823.3.579.2.593 1972 Unknown [id number] 2.16.840.1.365776.3.579.2.593 1972 Unknown [id number] 2.16.840.1.548336.3.579.2.593 1972 Unknown [id number] 2.16.840.1.311543.3.579.2.593 1972 Unknown [id number] 2.16.840.1.616176.3.579.2.593 1972 Unknown [id number] 2.16.840.1.564010.3.579.2.297 1972 Unknown [id number] 2.16.840.1.315987.3.579.2.297 1972 Unknown [id number] 2.16.840.1.943880.3.579.2.356 1972 Unknown [id number] 2.16840.1.392707.3.579.2.356 1972 Unknown [id number] 2.16840.1.603358.3.579.2.356 1972 Unknown [id number] 2.16840.1.378969.3.579.2.1286 1972 Unknown [id number] 2.16840.1.862687.3.579.2.1259 1972 Unknown [id number] 2.16.840.1.622938.3.579.2.1259 1972 Unknown [id number] 2.16.840.1.614403.3.579.2.1259 1972 Unknown [id number] 2.16.840.1.266661.3.579.2.1259 1972 Unknown [id number] 2.16.840.1.357488.3.579.2.1259 1972 Unknown [id number] 2.16.840.1.998243.3.579.2.1259 1972 Unknown [id number] 2.16.840.1.504646.3.579.2.1259 1972 Unknown [id number] 2.16.840.1.143516.3.579.2.1259 1972 Unknown [id number] 2.16.840.1.575497.3.579.2.1259 1972 Unknown [id number] 2.16.840.1.619641.3.579.2.9 1972 Unknown [id number] 2.16.840.1.746556.3.579.2.1259 1972 Unknown [id number] 2.16.840.1.641730.3.579.2.196 1959 Medicaid [id number] 1959 Unknown [id number] Unknown [id number] Unknown [id number] 2.16.840.1.076784.3.579.2.531 Unknown [id number] 2.16.840.1.894289.3.579.2.531 Unknown [id number] 2.16.840.1.131231.3.579.2.531 Social History Date Type Detail Facility Start: 10-08-2020 End: 09-01-2022 Tobacco smoking status SCIS Never smoked tobacco [facility] Start: 10-08-2020 End: 09-01-2022 Tobacco use and exposure Smokeless tobacco non-user [facility] Start: 01-04-2022 End: 09-27-2023 Alcohol intake Lifetime non-drinker (finding) [facility] Start: 10-08-2020 History SDOH Alcohol Frequency 1 [facility] Start: 1970 Sex Assigned At Female C [facility] Start: 01-21-2022 End: 07-26-2022 Exposure to SARS-CoV-2 (event) Not sure [facility] Start: 10-08-2020 End: 11-23-2020 Sex Assigned At [facility] Start: 10-08-2020 End: 11-23-2020 No alcohol use No alcohol use [facility] Comment on above: 3 TEA WEEK; How often to you hav e a drink containing alcohol? Never [facility] Average Number of Drinks Not on file [facility] Start: 07-28-2020 Gender identity Identifies as female gender (finding) [facility] Start: 07-03-2021 Sexual orientation Heterosexual (fin ding) [facility] Start: 06-05-2023 End: 06-05-2023 Tobacco smoking status NHIS Smoker (finding) [facility] Start: 1970 Sex Assigned At Not on file [facility] Start: 10-23-2023 Alcohol intake Ex-drinker (finding) [facility] Medical Equipment Procedure Code Equipment Code Equipment Origin al Text Equipment Identifier Dates Fibertak Hinton Self-Punching Knotless 2.6mm W/No 5 Suture [id number] Start: 10-14-2020 Fibertak Hinton Knotless 2.6mm [id number] Start: 10-14-2020 Hinton Swivelock C 4.75mm Biocomposite Peek 19.1mm Suture Closed Eyelet - [id number] Start: 10-14-2020 Sling Gynecare T vt Exact Gynecological Stress Urinary Incontinence - [id number] Start: 12-24-2021 DISC CERVICAL 13 [id number] [...] Type Note Facility 11-21-2023 Note HNO ID: [id number] Author: PAM WANG MD Service: ? Author [...] MD ATTESTATION By signing my name below, I, Tri Jackson, attest that this documentation has been prepared under the direction and in the presence of Dr. Pam Wang M.D. Electronically signed, Alex Encinas November 21, 2023 11:57 AM Provider Attestation: I, Pam Wang MD, personally performed the services described in this documentation. All medical record entries made by the scribe were at my direction and in my presence. I have reviewed the chart and discharge instructions (if applicable) and agree that the record reflects my personal performance and is accurate and complete. [facility] 11-08-2023 Miscellaneous Notes NURTEC PENDING WITH TEJADA [id number] documented in this encounter [facility] 11-08-2023 Telephone encounter Note NURTEC PENDING WITH TEJADA [id number] [facility] 10-12-2023 Note Patient emailed stat ing she is finding another provider and will no longer be seen at this clinic. [facility] 10-12-2023 Note HNO ID: [id number] Author: Pam Wang MD Service: ? Author [...] Video-assisted cystourethroscopy was performed using a 19 Divehi 70 and 30 degree rigid cystoscope with [...] urethra PLAN: See progress note from today [facility] 10-10-2023 Note HNO ID: [id number] Author: Pam Wang MD Service: ? Author [...] PFSH obtained by others. Pam Wang MD Lubricating Machine Tender offered: Patient declines. OBJECTIVE: BP 102/60 General: [...] would like to move forward with PNE. GripeO packet given to patient today to review. [...] which included preparing to see the patient, [id number] patient care, completing clinical documentation, obtaining and/or reviewing separately obtained history, performing a medically appropriate examination, counseling and educating the patient/family/caregiver, and communicating with other HCP (more content not included)... [facility] 10-02-2023 Miscellaneous Notes Patient was called to find out if there was another pharmacy to send her medication for Diflucan. Patient stated to disregard this medication. Patient stated that she does not need this medication now and that she will be visiting her PCP tomorrow (10/03/23) to address her sickness that she had before going to [place]. She states that she was going to [...] 150 MG TABLET MEREDITH: 09/27/2023 Doris Arias APRN.CHILD DAY CARE PROVIDER ([facility]) ASSESSMENT: Mary Leal is a 53 year [...] Dr. Pam Wang documented in this encounter [facility] 09-27-2023 Note HNO ID: [id number] Author: Doris Arias APRN.CHILD DAY CARE PROVIDER Service: ? Author Type: Nurse Practitioner Type: [...] ache and some malodorous urine. Patient in [place], unable to come in for visit. Has [...] urination is normal and pressure with urinating INVENTORY TAKER: denies abnormal vaginal bleeding, no vaginal discharge [...] Making Level: 3 - Low Doris Arias APRN.[facility] 09-27-2023 Miscellaneous Notes Scheduled 10/10/23 for Diagnostic [...] which included preparing to see the patient, [id number] patient care, completing clinical documentation, obtaining and/or [...] Office will call to schedule cystoscopy. Urogynecology [facility] Main provided: Pam Wang Staff Physician, Department of Urogynecology and Pelvic Floor Disorders Worsening frequency and urgency of urination. Is a urine culture indicated? Please review/advise Lex Vieyra RN documented in this encounter [facility] 09-19-2023 Note Patient states she m istook this medication and has been off for 7 days. Restarting it at the 25mg dose. [facility] 09-11-2023 Note HNO ID: [id number] Author: Jairon Lai MD Service: ? Author Type: Physician Type: Progress Notes Filed: 09/11/2023 1:18 PM Note Text: [facility] [...] to void lower flow Jairon Lai MD [facility] 09-11-2023 Note HNO ID: [id number] Author: Phil Beckford MD Service: ? Author [...] from sling incision +/- discussion of [facility] 09-01-2023 Note Spoke with patient. Canceling valium script. Increasing ativan dose to bid with current bottle for mgmt of anxiety. Appoitment on Saturday 09/08 - she will bring in ativan to count tablets. She states she has 20 left as of today. She should have 4 left at that appointment. [facility] 09-01-2023 Note Mary has been hav ing [...] disponing Ativan at pharmacy in order to pickling tank operator 1 weeks worth of Valium 5mg bid #16, to get her to her next appointment on 09/08. [facility] 08-23-2023 Note Psych Progress Note Time In: 925 Time Out: 940 HPI Present at Visit: Mary provider, [employer] student Location of Service: Office Review of Systems Constitutional: Negative. Respiratory: Negative. Cardiovascular: Negative. Psychiatric/Behavioral: dysphoric mood, irritability, insomnia Date of Telehealth Visit: 08/23/23 Chief Complaint Patient presents with Telehealth Audio/video Visit [email or web address] The patient was notified that using 3rd republican telecommunication application (e.g., [employer]) is not HIPPA compliant and may carry some privacy risks. Yes The visit was conducted [id number] with the use of audio and video technology [employer] between patient and provider for a virtual [...] Wear CPAP/ Insp (more content not included)... [facility] 08-21-2023 Note Est [facility] 08-12-2023 Emergency department Note Discharge, follow up, referral, and prescription information reviewed and explained; all questions and concerns addressed. Patient A/Ox3 in NAD, resp. easy unlabored upon discharge, escorted to exit by staff. [facility] 08-12-2023 Emergency department Note Discharge, follow [...] gastroparesis, gastroenteritis, acute cholecystitis, pancreatitis, less likely [place] The patient's initial and delta troponin are negative. EKG does not demonstrate any ischemic changes. Low suspicion for VA. Her urinalysis is negative for UTI. Urine [...] follow-up. She was instructed to call her motor and chassis inspector and PCP to schedule follow-up appointments. She was instructed to return to the emergency department if she has any new or worsening symptoms. Patient agreeable plan of care. Return precautions discussed at bedside. Spoke with Dr. Salmon regarding patient. Physician to complete their own physical exam and evaluation. Collaboration performed between this ICER MACHINE OPERATOR and physician regarding patient's plan of care. [...] following orders were created for panel order [place] Draw. Procedure Abnormality Status --------- ------ Gold Top[[id number]] Final result LIGHT BLUE TOP[[id number]] Final result Dark Green Top[[id number]] Final result Please view results for these [...] PWD. NAD noted. documented in this encounter [facility] 08-12-2023 Hospital Discharge instructions Lev Ritter [...] cannot be sent through Care Everywhere.Abdominal Pain (Egyptian Maltese)documented in this encounter [facility] 08-12-2023 Emergency department Note Report to Les GAMBINO [facility] 08-12-2023 Physician Emergency department Note Images [...] gastroparesis, gastroenteritis, acute cholecystitis, pancreatitis, less likely VA The patient's initial and delta troponin are negative. EKG does not demonstrate any ischemic changes. Low suspicion for VA. Her urinalysis is negative for UTI. Urine [...] follow-up. She was instructed to call her motor and chassis inspector and PCP to schedule follow-up appointments. She was instructed to return to the emergency department if she has any new or worsening symptoms. Patient agreeable plan of care. Return precautions discussed at bedside. Spoke with Dr. Salmon regarding patient. Physician to complete their own physical exam and evaluation. Collaboration performed between this ICER MACHINE OPERATOR and physician regarding patient's plan of care. [...] following orders were created for panel order [place] Draw. Procedure Abnormality Status --------- ------ Gold Top[[id number]] Final result LIGHT BLUE TOP[[id number]] Final result Dark Green Top[[id number]] Final result Please view results for these tests on the individual orders. GOLD TOP LIGHT BLUE TOP DARK GREEN TOP TROPONIN I Records reviewed: Urogynecology telemedicine visit 08/07/2023 ENT visit 07/11/2023 Family medicine visit 07/06/2023 Lev Ritter APRN CNP 08/12/23722 [facility] 08-12-2023 Emergency department Note Emily at bedside [facility] 08-12-2023 Emergency department Triage note Ambulates to triage with C/O sudden epigastric gnawing, burning pain that woke her from sleep. Also reports wheezing. States nausea. Denies fever. Alert. Respirations easy and unlabored. Skin PWD. NAD noted. [facility] 08-07-2023 Note HNO ID: [id number] Author: Pam Wang MD Service: ? Author [...] no Pain: no Abnormal Vaginal Discharge: no INVENTORY TAKER 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 She has no history of an abnormal mammogram with cysts on US LMP: No LMP recorded. Patient has had a hysterectomy.; Menopause 3 years ago; hysterectomy in 2015: Menstrual history: NA; Deliveries: I have confirmed and edited as necessary, the PFSH obtained by others. Pam Wang MD Lubricating Machine Tender offered: Patient declines. OBJECTIVE (Virtual) There were [...] which included preparing to see the patient, pwlk-dg-ohjm patient care, completing clinical documentation, obtaining and/or reviewing separately obtained history, counseling and educating the patient/family/caregiver, ordering medications, tests, or procedures, and communicating with other HCPs (not separately reported). Pam Wang MD [facility] 07-31-2023 Note HNO ID: [id number] Author: Nelsy Chávez APRN.CHILD DAY CARE PROVIDER Service: ? Author Type: Nurse Practitioner Type: [...] new Pain: no Abnormal Vaginal Discharge: no INVENTORY TAKER 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 She has no history of an abnormal mammogram with cysts on US LMP: No LMP recorded. Patient has had a hysterectomy.; Menopause 3 years ago; hysterectomy in 2015: Menstrual history: NA; Deliveries: I have confirmed and edited as necessary, the PFSH obtained by others. Nelsy Chávez APRN.KWESI Lubricating Machine Tender offered: Patient declines. OBJECTIVE: There were no [...] for now d/t side effects Nelsy Chávez APRN.CHILD DAY CARE PROVIDER I spent a total of 45 minutes on the date of the service which included preparing to see the patient, pmtc-vk-rgbq patient care, completing clinical documentation, performing a medically appropriate examination, counseling and educating the patient/family/caregiver and ordering medications, tests, or procedures. [facility] 07-31-2023 History of Present illness [...] new Pain: no Abnormal Vaginal Discharge: no INVENTORY TAKER 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 She has no history of an abnormal mammogram with cysts on US LMP: No LMP recorded. Patient has had a hysterectomy.; Menopause 3 years ago; hysterectomy in 2015: Menstrual history: NA; Deliveries: I have confirmed and edited as necessary, the PFSH obtained by others. Nelsy Chávez APRN.CHILD DAY CARE PROVIDER Lubricating Machine Tender offered: Patient declines. OBJECTIVE: There were no [...] which included preparing to see the patient, vcvy-nu-sjbo patient care, completing clinical documentation, performing a medically appropriate examination, counseling and educating the patient/family/caregiver and ordering medications, tests, or procedures. documented in this encounter [facility] 07-25-2023 Note Patient: Mary arriaza Procedure Summary Date: 07/25/23 Room / Location: [facility] Main OR Anesthesia Start: 1105 Anesthesia Stop: [...] per anesthesia protocol. No notable events documented. [facility] 07-25-2023 Note Patient: Mary arriaza Procedure Summary Date: 07/25/23 Room / Location: [facility] Main OR Anesthesia Start: 1105 Anesthesia Stop: Procedures: EGD DIAGNOSTIC COLONOSCOPY Diagnosis: Gastroesophageal reflux disease without esophagitis Nausea Diarrhea, unspecified type Scheduled Providers: Matteo Quinones MD; Blanquita Ramirez MD Responsible Provider: Blanquita Ramirez MD Anesthesia Type: MAC ASA Status: 3 Anesthesia Post [facility] Patient Monitor: direct observation Transport: uneventful Patient condition is: stable [facility] 07-25-2023 Note Patient: Mary arriaza Procedure Information Date/Time: 07/25/23 1100 Scheduled providers: Matteo Quinones MD; Blanquita Ramirez MD Procedures: EGD DIAGNOSTIC COLONOSCOPY Location: [facility] Main OR Relevant Problems Anesthesia (+) CHUCKIE [...] who. Plan discussed with resident, CAA and ELEVATOR REPAIR MECHANIC. 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 Do not wear perfume, make-up, nail albanian, or lotions on the day of your [...] need to make any changes, please call [phone]. Notify your surgeon if you develop any illness such as a cold, cough, fever, sore throat or vomiting between now and your surgery. Thank you for entrusting us with your care. [facility] Surgical Services Team [facility] 06-08-2023 Note Psych Progress Note Time In: 925 Time Out: 940 HPI Present at Visit: Mary provider, [employer] student Location of Service: Office Review of Systems Constitutional: Negative. Respiratory: Negative. Cardiovascular: Negative. Psychiatric/Behavioral: Negative. Date of Telehealth Visit: 06/08/23 Chief Complaint Patient presents with Telehealth Audio/video Visit [email or web address] The patient was notified that using 3rd republican telecommunication application (e.g., Data3Sixty) is not HIPPA compliant and may carry some privacy risks. Yes The visit was conducted rego-ls-wgmw with the use of audio and video technology [employer] between patient and provider for a virtual [...] dictated by speech recognition. Minor errors in quality control checker may be present. Information on after hour access to care was provided - encouraged to use 911, [facility], their critical access hospital crisis hotline, or the nearest emergency room in the event of a crisis. Also informed of 24 hour access at [facility] and if in crisis after regular business hours may call the hospital tub operator [phone]; and ask to speak with the compensation vice president on-call. Patient Rights and Responsibilities were [...] get back t (more content not included)... [facility] 05-31-2023 Note [facility] Gastroenterolog y New Patient Visit - History & Physical CHIEF COMPLAINT Chief Complaint Patient presents with Nausea GERD Abdominal Pain New Patient HISTORY OF PRESENT ILLNESS: Mary Leal is a 53 y.o. female new patient referred by Dr. Gómez for gastroparesis, GERD, and abdominal pain. Past medical history includes gastroparesis ( was evaluated by DR Masters at [facility]) and total abdominal colectomy with ileorectal [...] chart, Montiel placement was planned, but aborted / LA Grade D esophagitis. ( According to [...] Abnormal mammogram Arthritis (more content not included)... [facility] 05-22-2023 Note You are not granted access to view this sensitive note. [facility] 05-17-2023 Note Psych Progress Note Time In: 1245 Time Out: 110 HPI Present at Visit: Mary Location of Service: Office Review of Systems Constitutional: Negative. Respiratory: Negative. Cardiovascular: Negative. Psychiatric/Behavioral: Negative. Date of Telehealth Visit: 05/17/23. Chief Complaint Patient presents with Telehealth Audio/video Visit [email or web address] The patient was notified that using 3rd republican telecommunication application (e.g., Data3Sixty) is not HIPPA compliant and may carry some privacy risks. Yes The visit was conducted yuud-bi-pmek with the use of audio and video technology [employer] between patient and provider for a virtual [...] dictated by speech recognition. Minor errors in quality control checker may be present. Information on after hour access to care was provided - encouraged to use 911, [facility], their critical access hospital crisis hotline, or the nearest emergency room in the event of a crisis. Also informed of 24 hour access at [facility] and if in crisis after regular business hours may call the hospital tub operator [phone]; and ask to speak with the compensation vice president on-call. Patient Rights and Responsibilities were [...] alternatives to tr (more content not included)... [facility] 05-17-2023 Note You are not granted access to view this sensitive note. [facility] 04-26-2023 Evaluation note Encounter Date Diagnosis Assessment [...] Above note written by Wanda Yang LPN, Severity Of Illness Coordinator. Edited and approved by Dr. Annette Harris MD. [employer] Other 06-12-2023 NoteYou are not granted access to view this sensitive note.[facility]06-09-2023 NoteYou are not granted access to view this sensitive note.[facility] 04-11-2023 Miscellaneous Notes* Telephone Encounter - Serenity Joseph MA - 04/11/2023 10:19 AM EDT MEREDITH=10/11/22 Spoke with patient she does need a refill Medication pended please file Rx request if appropriate Patient and pharmacy verified [facility] NoteYou are not granted access to view this sensitive note.[facility]05-15-2023 Miscellaneous Notes* Telephone Encounter - Regina Philippe - 03/20/2023 2:50 PM EDT Should patient follow up via virtual visit to discuss further? * Telephone Encounter - Steffi Ross LPN - 03/20/2023 10:20 AM EDT Patient's stool tests came back normal. Steffi Ross LPN documented [facility]-2023 NoteYou are not granted access to view this sensitive note.[facility]05-01-2023 NoteYou are not granted access to view this sensitive note.[facility]04-24-2023 NoteYou are not granted access to view this sensitive note.[facility]04-18-2023 NotePROCEDURE: XR ANKLE RT MIN 3 VIEWS, [...] Electronically authenticated by: ZAIDA ACOSTA Date: 2023-02-21 10:15[facility]04-18-2023 NotePROCEDURE: XR ANKLE RT MIN [...] Electronically authenticated by: ZAIDA ACOSTA Date: 2023-02-21 10:15[facility]04-17-2023 NoteYou are not granted access to view this sensitive note.[facility]04-13-2023 NotePsych Progress Note Time In: 2 Time Out: 2:25 HPI Present at Visit: Mary Location of Service: Office Review of Systems Constitutional: Negative. Respiratory: Negative. Cardiovascular: Negative. Psychiatric/Behavioral: Negative. Date of Telehealth Visit: 02/20/2023 Chief Complaint Patient presents with Telehealth Audio/video Visit @[email or web address] The patient was notified that using 3rd republican telecommunication application (e.g., Data3Sixty) is not HIPPA compliant and may carry some privacy risks. Yes The visit was conducted grlj-gj-dklk with the use of audio and video technology [employer] between patient and provider for a virtual [...] dictated by speech recognition. Minor errors in quality control checker may be present. Information on after hour access to care was provided - encouraged to use [employer], [employer], community hospital crisis hotline, or the nearest emergency room in the event of a crisis. Also informed of 24 hour access at [facility] and if in crisis after regular business hours may call the hospital tub operator [phone]; and ask to speak with the compensation vice president on-call. Patient Rights and Responsibilities were [...] as all medications m (more content not included)...[facility]04-10-2023 Note Attestation signed by Grant Biswas, PhD at 02/16/2023 2:57 PM This encounter qualifies to be billed under ???Direct Supervision??? because this patient was met by a licensed clinical psychologist upon starting treatment services with the provider who is a clinical psychology boring inspector. The licensed clinical psychologist providing supervision for [...] in office Patient Location: [facility] in [place] Telehealth Information Telehealth Mode: Webex (video + audio) The patient was notified that using 3rd republican telecommunication application is not HIPAA compliant and may carry some privacy risks: Yes Video Consent Date of Telehealth Visit: 02/13/23 The patient was notified that using 3rd republican telecommunication application (e.g. Data3Sixty) is not HIPAA compliant and may carry some privacy risks: Yes This visit was conducted wrnq-cs-yvjb with the use of audio and video technology using [employer] between patient and the provider for a virtual visit. Verbal consent to provide and bill this service was obtained on: 02/13/23 No signature was obtained due to the COVID-19 pandemic. SUBJECTIVE CC: Chief Complaint Patient presents with Therapy HPI: Mary Leal is a 52 y.o. female presenting to the [facility] Psychiatry Clinic on 02/13/23 for management [...] (ISP): Provider: Carmen Dorsey M.A. (clinical psychology boring inspector) Frequency: 1-4 weeks Patient Needs: eleviate anxiety, [...] oriented to person, orien (more content not included)...[facility]04-03-2023 Note Attestation signed by Grant Biswas, PhD at 02/06/2023 9:45 AM This encounter qualifies to be billed under ???Direct Supervision??? because this patient was met by a licensed clinical psychologist upon starting treatment services with the provider who is a clinical psychology boring inspector. The licensed clinical psychologist providing supervision for [...] Location: Clinician in office Patient Location: [facility] in [place] Telehealth Information Telehealth Mode: Webex (video + audio) The patient was notified that using 3rd republican telecommunication application is not HIPAA compliant and may carry some privacy risks: Yes Video Consent Date of Telehealth Visit: 02/06/23 The patient was notified that using 3rd republican telecommunication application (e.g. Data3Sixty) is not HIPAA compliant and may carry some privacy risks: Yes This visit was conducted thlx-zv-syrx with the use of audio and video technology using Trend[employer] Entertainment[employer] between patient and the provider for a virtual visit. Verbal consent to provide and bill this service was obtained on: 02/06/23 No signature was obtained due to the COVID-19 pandemic. SUBJECTIVE CC: Chief Complaint Patient presents with Therapy HPI: Mary Leal is a 52 y.o. female presenting to the [facility] on 02/06/23 for management of depression and anxiety. Since the last visit, the patient's condition has remained stable. Session activities included: symptom monitoring, psychoeducation on obsessive thoughts/compulsive behaviors. Pt stated she has had difficulty sleeping the past week and feels tired. Pt regularly reports sleep difficulties. She stated she saw her CASEWORKER [employer]ECTIVE SERVICES and they discussed stopping her trazadone to see if that helps. Pt stated she did not get any sleep the nights she did not take the trazadone and thus started taking it again. She stated she will message her CASEWORKER PR[employer]ECTIVE [employer] to let her know. Pt stated she [...] (ISP): Provider: Carmen Dorsey M.A. (clinical psychology boring inspector) Frequency: 1-4 weeks Patient Needs: eleviate anxiety, [...] normal Build/Stature: N/A Gait (more content not included)...[facility]03-30-2023 NotePsych Progress Note Time In: 9:38 Time [...] dictated by speech recognition. Minor errors in quality control checker may be present. Information on after hour access to care was provided - encouraged to use 911, [facility], community hospital crisis hotline, or the nearest emergency room in the event of a crisis. Also informed of 24 hour access at [facility] and if in crisis after regular business hours may call the hospital tub operator [phone]; and ask to speak with the compensation vice president on-call. Patient Rights and Responsibilities were [...] needed between scheduled f (more content not included)...[facility] 01-31-2023 NotePROCEDURE: XR FOOT RT MIN 3 [...] Electronically authenticated by: ZAIDA ACOSTA Date: 2023-01-31 11:55[facility]03-20-2023 Note Attestation signed by Grant Biswas, PhD at 01/23/2023 11:30 AM This encounter qualifies to be billed under ???Direct Supervision??? because this patient was met by a licensed clinical psychologist upon starting treatment services with the provider who is a clinical psychology boring inspector. The licensed clinical psychologist providing supervision for [...] in office Patient Location: [facility] in [place] Telehealth Information Telehealth Mode: Webex (video + audio) The patient was notified that using 3rd republican telecommunication application is not HIPAA compliant and may carry some privacy risks: Yes Video Consent Date of Telehealth Visit: 01/23/23 The patient was notified that using 3rd republican telecommunication application (e.g. Data3Sixty) is not HIPAA compliant and may carry some privacy risks: Yes This visit was conducted vkhm-al-dkwg with the use of audio and video technology using [employer] between patient and the provider for a virtual visit. Verbal consent to provide and bill this service was obtained on: 01/23/23 No signature was obtained due to the COVID-19 pandemic. SUBJECTIVE CC: Chief Complaint Patient presents with Therapy HPI: Mary Leal is a 52 y.o. female presenting to the [facility] on 01/23/23 for management [...] son. She reported going to a basketball tourAnimating Touch and her son and his friends. Pt provided an update on transitioning her niece and nephew to live with their older sister in [place]. Pt has met with an banking attorney and is securing the necessary paperwork. [...] (ISP): Provider: Carmen Dorsey M.A. (clinical psychology boring inspector) Frequency: 1-4 weeks Patient Needs: eleviate anxiety, [...] time Attention and Concent (more content not included)...[facility]03-16-2023 Miscellaneous Notes* Telephone Encounter - Jennie Moreno RN - 01/19/2023 2:17 PM EDT Please review and advise patient. [facility]23 Miscellaneous Notes* Telephone Encounter - Mounika Hernandez PA-C - 01/16/2023 1:08 PM EDT Patient was scheduled for virtual PACC appt at 1300 today. Patient did not check in for visit. Called patient at [phone] to see if they needed any assistance logging in and left voicemail. This message routed to PACC schedulers to contact patient to reschedule PACC appt. Mounika Hernandez PA-C January 16, 2023 1:09 PM documented in this encounterKind[facility]03-[facility]23 History and physical note * Mounika Hernandez PA-C - 01/16/2023 1:00 PM EDT This is a virtual visit using Ver[employer] video visit. It required patient-provider interaction for themedical decision making as documented below. I have communicated my name and active licensure. The patient's identity and physical location wereverified at the time of this visit. Either the patient or their legal claim service representative has been informed of the risks and benefits of and alternatives to treatment through a remote evaluation and consents to proceed with the evaluation remotely. Surgeon: Winston Hannah DO Type of surgery: GEN SURG: POP Patient scheduled for surgery on 02/08/23 . Surgery Location: [facility] Diagnosis: Preop examination (primary encounter diagnosis) [...] in the AM and 4 mg PM amhhltiqsjo-fsyanaelp-yvreqigb (TRELEGY ELLIPTA) 100-62.5-25 mcg Inhale 1 Puff [...] 16, 2023 12:36 PM documented in this encounterKind[facility]03-13-2023 Instructions* Patient Instructions* Mounika Hernandez PA-C - 01/16/2023 12:38 PM EDT PATIENT PREOPERATIVE INSTRUCTIONS Winston Hannah DO has scheduled you for your procedure at this surgery center: [facility]: [phone] -- [id number] [address]. Please read below carefully for your personalized [...] Procedures: - YOU MUST HAVE A RESPONSIBLE DESIGN SPECIALIST TAKE YOU HOME. A INSPECTOR AIR CARRIER OR MONOGRAM MAKER CANNOT BE MADE A RESPONSIBLE DESIGN SPECIALIST. - We recommend that a responsible [...] Advance Directive, please fax a copy to [phone] or email to for it to be [...] day. Mounika Hernandez PA-C documented in this encounter[facility]03-[facility]-2023 Miscellaneous Notes* Telephone Encounter - Berta Ann RN - 01/11/2023 9:47 AM EST Procedure pended for 02/08/23. Pt aware of need for PACC. Pre-op instructions reviewed, will send to pt's MC, per pt request. Postop appt scheduled. No other questions at this time. Berta HENSON, RN Specialty Certified Health 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 documented in this encounterKindred [facility]03-07-2023 NoteHNO ID: [id number] Author: Winston Hannah DO Service: ? Author Type: Physician Type: Progress Notes Filed: 01/10/2023 6:08 PM Note Text: Digestive Disease AND Surgery Pierre Gastroparesis/Dysmotility Follow Up This encounter was provided [...] of care. NAME: Mary Leal CLINIC NO: [id number] CHIEF COMPLAINT Idiopathic Gastroparesis HISTORY OF PRESENT [...] thin barium without ob (more content not included)...[facility] History of Present illness Narrative* Winston Hannah, - 01/10/2023 9:09 AM EST Images from the original note were not included. Digestive Disease & Surgery Pierre Gastroparesis/Dysmotility Follow Up This encounter was provided [...] (possible pending operative findings) with partial fundoplication (nena), based onresponse to the POP procedure PLAN [...] of care. NAME: Mary Leal CLINIC NO: [id number] CHIEF COMPLAINT Idiopathic Gastroparesis HISTORY OF PRESENT [...] Normal gastric transit Normal small bowel transit [id number] transit in the distal bowel consistent delay [...] (FLONASE) 50 mcg/actuation nasal spray Use 1 Kinsley in each nostril once daily. carBAMazepine XR [...] THE LUNGS every 4 hours if needed hsuhasvoxow-keaeeaamd-tzxgofxf (TRELEGY ELLIPTA) 100-62.5-25 mcg Inhale 1 Puff [...] dialysis. No history of symptoms or problems. INVENTORY TAKER: Negative for abnormal vaginal bleeding, abnormal vaginal [...] and plan of care. documented in this encounterKindred Hospital [facility]03-03-2023 NoteDepartment of Psychiatry Outpatient Progress Note Time In: 2:30 PM Time Out: 3:00 PM Present At Visit: Patient Clinician Location: Clinician via telehealth Patient Location: Meeting remotely by telephone today (patient unable to connect by video). Subjective CC: Chief Complaint Patient presents with Telehealth Audio/video Visit HPI: Mary Leal is a 52 y.o. female presenting to the [facility] on 01/06/2023 for medication [...] week. Annette Swanson DO (more content not included)...[facility] 01-02-2023 NotePsychiatry Psychotherapy Progress Note Time In: 11:00 am Time Out: 11:53 am Present At Visit: Patient Clinician Location: Clinician in office Patient Location: Via telehealth in [place] Telehealth Information Telehealth Mode: Webex (video + audio) The patient was notified that using 3rd republican telecommunication application is not HIPAA compliant and may carry some privacy risks: Yes Video Consent Date of Telehealth Visit: 01/02/23 The patient was notified that using 3rd republican telecommunication application (e.g. Data3Sixty) is not HIPAA compliant and may carry some privacy risks: Yes This visit was conducted oewn-yc-efxw with the use of audio and video technology using [employer] between patient and the provider for a virtual visit. Verbal consent to provide and bill this service was obtained on: 01/02/23 No signature was obtained due to the COVID-19 pandemic. SUBJECTIVE CC: Chief Complaint Patient presents with Therapy HPI: Mary Leal is a 52 y.o. female presenting to the [facility] on 01/02/23 for management of depression and anxiety. Since the last visit, the patient's condition has improved Session activities included: reviewed and discussed acts of self-care and value-focused behaviors. Pt stated she had an epiphany last week and made the decision to have her niece and nephew live with their sister in [place]. Pt stated she is done raising kids [...] with her children before they go to [place]. Pt acknowledged she was not looking forward [...] (ISP): Provider: Carmen Dorsey M.A. (clinical psychology boring inspector) Frequency: 1-4 weeks Patient Needs: eleviate anxiety, [...] Disp: , Rfl: alend (more content not included)...[facility] 12-29-2022 Miscellaneous Notes* Addendum Note - Yoni Tuttle MD - 12/29/2022 3:37 PM ESTAddended by: YONI TUTTLE MD on: 12/29/2022 03:37 PM Modules accepted: Orders documented in this encounterKindred Hospital [facility]02-20-2023 NoteHNO ID: [id number] Author: Deb Booker RT(R) Service: Radiology Author [...] BY: RT Елена(R) December 26, 2022 3:17 [facility]02-20-2023 History of Present illness Narrative* RT [...] 26, 2022 3:17 PM documented in this encounterKindred Hospital [facility]02-17-2023 Miscellaneous Notes* Telephone Encounter - Erica Serrano RN - 12/23/2022 4:36 PM EST Message being addressed in another encounter that was forwarded to provider documented in this encounterKindred Hospital [facility]02-16-2023 NoteHNO ID: [id number] Author: Winston Hannah DO Service: ? Author Type: Physician Type: Progress Notes Filed: 12/22/2022 9:32 AM Note Text: Digestive Disease AND Surgery Pierre Gastroparesis/Dysmotility Follow Up This encounter was provided [...] completed esophagram NAME: Mary Leal CLINIC NO: [id number] CHIEF COMPLAINT Idiopathic Gastroparesis HISTORY OF PRESENT [...] chicken spaghetti etc. Duration of symptoms (months): 5432-8971 Weight changes in last 3 months: Stable [...] transit. WGTT: 24:32 Normal (more content not included)...[facility] 12-22-2022 History of Present illness Narrative* Winston Hannah, - 12/22/2022 8:52 AM EST Images from the original note were not included. Digestive Disease & Surgery [place] Gastroparesis/Dysmotility Follow Up This encounter was provided [...] completed esophagram NAME: Mary Leal CLINIC NO: [id number] CHIEF COMPLAINT Idiopathic Gastroparesis HISTORY OF PRESENT [...] chicken spaghetti etc. Duration of symptoms (months): 7608-6387 Weight changes in last 3 months: Stable [...] Normal gastric transit Normal small bowel transit [id number] transit in the distal bowel consistent delay [...] (FLONASE) 50 mcg/actuation nasal spray Use 1 Kinsley in each nostril once daily. carBAMazepine XR [...] THE LUNGS every 4 hours if needed bodtpfslctt-mzrtzunqu-wygpmcvn (TRELEGY ELLIPTA) 100-62.5-25 mcg Inhale 1 Puff [...] dialysis. No history of symptoms or problems. INVENTORY TAKER: Negative for abnormal vaginal bleeding, abnormal vaginal [...] and plan of care. documented in this encounterKindred Hospital [facility]02-15-2023 NotePROCEDURE: XR FOOT RT MIN 3 VIEWS [...] Electronically authenticated by: ZAIDA ACOSTA Date: 2022-12-21 12:24[facility]02-09-[facility]23 NoteHNO ID: [id number] Author: Mary Obrien MD Service: ? Author [...] TONSILLECTOMY HX 07/2021 revision VAGINAL HYSTERECTOMY 2014 [facility] 10/2015 for endometriosis, has remaining [...] in the AM and 4 mg PM idnwlnurgwi-wibnfxogj-aymwoodl (TRELEGY ELLIPTA) 100-62.5-25 mcg Inhale 1 Puff [...] which included preparing to see the patient, sfgl-bc-kdrf patient care, co (more content not included)...[facility] History of Present illness Narrative* Mary [...] TONSILLECTOMY HX 07/2021 revision VAGINAL HYSTERECTOMY 2014 [facility] 10/2015 for endometriosis, has remaining [...] in the AM and 4 mg PM zcyiazqgokw-yxheyxpfz-nrmpgqrf (TRELEGY ELLIPTA) 100-62.5-25 mcg Inhale 1 Puff [...] which included preparing to see the patient, cnmv-bl-ymll patient care, completing clinical documentation, obtaining and/or reviewing separately obtained history, counseling and educating the patient/family/caregiver, ordering medications, quincy ts, or procedures, communicating with other HCPs (not separately reported), independently interpreting results (not separately reported), communicating results to the patient/family/caregiver, and care coordination (not separately reported). Mary Obrien MD Colorectal Surgery documented in this encounterKindred Hospital [facility]02-08-2023 Miscellaneous Notes* Telephone Encounter - Patricia Benton RN - 12/14/2022 5:19 PM EST Several attempts to reach pt unsuccessful - MC sent. * Telephone Encounter - Barber Marie - 12/02/2022 8:39 AM EST SLEEP PHONE Name of caller: Mary Leal Relationship to patient : Self In-state or icf-et-btizk patient: In-State Was permission obtained from patient? Yes Patient identified by Name and Date of . ( Mary Leal, 1970). Yes Reason for Call : Patient said her and Patricia was chatting through my chart and Patricia calledher about 5:15 yesterday. Number to return call [phone] Okay to leave a message ? Yes Last office visit 10/14/[address] Kusum vines Next office visit 01/13/[address] Tuttle virtual documented in this encounterKindred Hospital [facility]02-06-2023 NotePsychiatry Psychotherapy Progress Note Time In: 8:30 am Time Out: 9:25 am Present At Visit: Patient Clinician Location: Clinician in office Patient Location: Via telehealth in [place] Telehealth Information Telehealth Mode: Webex (video + audio) The patient was notified that using 3rd republican telecommunication application is not HIPAA compliant and may carry some privacy risks: Yes Video Consent Date of Telehealth Visit: 12/12/22 The patient was notified that using 3rd republican telecommunication application (e.g. Data[employer]Sixty) is not HIPAA compliant and may carry some privacy risks: Yes This visit was conducted zlsk-kl-jpog with the use of audio and video technology using Trend[employer] Entertainment[employer] between patient and the provider for a virtual visit. Verbal consent to provide and bill this service was obtained on: 12/12/22 No signature was obtained due to the COVID-19 pandemic. SUBJECTIVE CC: Chief Complaint Patient presents with Therapy HPI: Mary Leal is a 52 y.o. female presenting to the [facility] on 12/12/22 for management [...] (ISP): Provider: Carmen Dorsey M.A. (clinical psychology boring inspector) Frequency: 1-4 weeks Patient Needs: eleviate anxiety, [...] of water, on an (more content not included)...[facility]02-06-2023 Miscellaneous Notes* Telephone Encounter - See Wong [...] and follow up testing return call to [phone] documented in this encounterKindred Hospital [facility]02-03-2023 NoteDepartment of Psychiatry Outpatient Progress Note Time In: 3 PM Time Out: 3:30 PM Present At Visit: Patient Clinician Location: Clinician in office Patient Location: In office Subjective CC: Chief Complaint Patient presents with Telehealth Audio/video Visit [email or web address] HPI: Mary Leal is a 52 y.o. female presenting to the [facility] on 12/09/21. ' Between [...] teratogenicity, and medication (more content not included)... [facility]02-03-2023 Miscellaneous Notes* Telephone Encounter - MALAIKA Rosales [...] patient Summary: As noted Concerns: Procedure results Certified Health 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 plan for next outreach: Will follow up Signature Nelsy Pepe RN December 08, 2022 documented in this encounterKindred Hospital [facility]01-30-2023 Nurse Note* Lisa Contreras RN - 12/05/2022 1:05 PM EST [facility] END[facility] PRE PROCEDURE CALL Akiko. I'm calling from [facility] endoscopy to provide you with the information for your surgery/procedure tomorrow. Spoke to: Patient CONFIRM Procedure Planned with patient:Esophagogastroduodenoscopy(EGD) with or without biopies based on clinical findings, removal of polyps or lesions Are you familiar with where [facility] is located?yes Address [facility] Patient instructed to enter through the main hospital entrance off [address] through the revolving doors and check in at the main desk with your hearse driver's license and insurance card.yes When anesthesia or sedation is being given: Patient instructed you must have an adult hearse driver because you will not be able to work or drive for the rest of the day after your test.yes Can you please confirm the name and relationship of your hearse driver. tbd What is the best number for your hearse driver to be reached at tomorrow for updates? tbd Your hearse driver is allowed to wait here with [...] Do not wear makeup, lotion, or finger albanian. yes Patient instructed: Please bring a list [...] given Any barriers to Patient learning (confusion? Senior Account Clerk needed?): Patient/Patient Woods Warden responded appropriately on phone. If patient needs to reschedule please call: [phone] [facility] phone number: [phone] Type of instruction given: Verbal by telephone contact. documented in this encounterKindred Hospital [facility]01-27-2023 Nurse Note* Isra Harman RN - 12/02/2022 10:48 AM EST [facility] PRE PROCEDURE CALL Akiko. I'm calling from [facility] endoscopy to provide you with the information for your surgery/procedure tomorrow. Spoke to: Patient CONFIRM Procedure Planned with patient: Are you familiar with where [facility] is located?yes Address [facility] Patient instructed to enter through the main hospital entrance off [address] through the revolving doors and check in at the main desk with your hearse driver's license and insurance card.yes When anesthesia or sedation is being given: Patient instructed you must have an adult hearse driver because you will not be able to work or drive for the rest of the day after your test.yes Can you please confirm the name and relationship of your hearse driver. Rich What is the best number for your hearse driver to be reached at tomorrow for updates? 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 yes Patient instructed: Please bring a list [...] given Any barriers to Patient learning (confusion? Senior Account Clerk needed?): Patient/Patient Woods Warden responded appropriately on phone. If patient needs to reschedule please call: [phone] [facility] phone number: [phone] Type of instruction given: Verbal by telephone contact. documented in this encounterKindred Hospital [facility]01-26-2023 NotePROCEDURE: XR FOOT RT MIN 3 VIEWS, [...] Electronically authenticated by: ZAIDA ACOSTA Date: 2022-12-01 11:42[facility]01-26-2023 NotePROCEDURE: XR FOOT RT MIN 3 VIEWS, [...] Electronically authenticated by: ZAIDA ACOSTA Date: 2022-12-01 11:42[facility]01-25-2023 NoteHNO ID: [id number] Author: Isra Masters, DO Service: ? Author [...] in the AM and 4 mg PM pgydvmoxvge-ddxjltowb-pskntfsb (TRELEGY ELLIPTA) 100-62.5-25 mcg Inhale 1 Puff [...] no edema RESPIRATORY: No dyspnea : neg INVENTORY TAKER: neg The remainder of the review of [...] SIGMOIDOSCOPY 2. Nausea R11.0 Isra Masters DO 11/30/2022[facility]01-25-[facility] History of Present illness Narrative* Isra Masters [...] in the AM and 4 mg PM pzuitvzhipb-ssqbudmvj-uaxappgw (TRELEGY ELLIPTA) 100-62.5-25 mcg Inhale 1 Puff [...] no edema RESPIRATORY: No dyspnea : neg INVENTORY TAKER: neg The remainder of the review of [...] Isra Masters DO 11/30/2022 documented in this encounterKindred Hospital [facility]01-19-2023 Miscellaneous Notes* Telephone Encounter - Erica Serrano RN - 11/24/2022 3:20 PM EST This concern was addressed in the phone encounter on 11/24/22. Patient was called back and informed [employer] will complete Prior Authorization for her sleep study. documented in this encounterKindred Hospital [facility]01-19-2023 Miscellaneous Notes* Telephone Encounter - Erica Serrano [...] Relationship to patient : Self In-state or hhy-ma-dtift patient: In-State Was permission obtained from patient? Yes Patient identified by Name and Date of . ( Mary Leal, 1970). Yes Reason for Call : Patient stated she spoke to her insurance and they told her that the provider need to call Deuce to see if a PA is needed for the PAP Titration. Number to return call [phone] Okay to leave a message ? Yes Last office visit 10/14/[address] Tuttle virtual Next office visit None documented in this encounterKindred Hospital [facility]01-19-2023 History of Present illness Narrative* Isra Masters DO - 11/24/2022 8:29 AM EST Images from the original note were not included. Voalte Test Report - [id number] Test start date: 11/17/2022 10:03 AM Glove Presser: [email or web address] Interpretation date: 11/24/2022 Ordering physician: Isra Masters DO Referring physician: Patient Information Name: Mary Leal. ID: [id number] date: 1970 Height ft. in.: 5' 4 [...] Normal gastric transit Normal small bowel transit [id number] transit in the distal bowel consistent delay post anastomosis Signature _Dr. Masters Date _11/24/2022 documented in this encounterKindred Hospital [facility]01-17-2023 Miscellaneous Notes* Telephone Encounter - Regina Philippe - 11/22/2022 3:37 PM EST Patient calling to verify that Smart Pill monitor was received at A[facility]. Monitor was sent via [employer] on 11/19/22. Patient is requesting a confirmation. documented in this encounterKindred Hospital [facility]01-16-2023 Miscellaneous Notes* Telephone Encounter - Erica Serrano RN - 11/21/2022 9:11 AM EST Verifico message sent to patient. Prior Sleep study forwarded to MD to review, Order pended for PAP-titration for provider to review and sign if necessary. documented in this encounterKindred Hospital [facility]01-16-2023 History and physical note * Yodit Back PA-C - 11/21/2022 8:00 AM EST PREANESTHESIA CONSULT CLINIC TELEHEALTH VISIT Patient has been identified by name and date of : Yes This is a virtual visit using Ver[employer]o video visit. It require patient-provider interaction for [...] in the AM and 4 mg PM odyfzianfzr-ozbrnxbqy-epcpxjti (TRELEGY ELLIPTA) 100-62.5-25 mcg Inhale 1 Puff as instructed once daily. No current facility-administered medications for this visit. COVID VACCINATION STATUS: Fully vaccinated REVIEW OF SYSTEMS: Pain Assessment: General: No weight loss, malaise or fevers. Neuro: No history of TIA's, stroke, SASH FINISHER tumor, impaired sensorium, hemiplegia, paraplegia or quadraplegia. [...] requiring medication, no history of angina, CHF, VA, cardiac surgery or stents. Denies rest pain, gangrene or revascularization/amputation for PVD. No history of cardiovascular symptoms or problems. + HLD GI: See HPI : No history of dysuria, frequency or incontinence,, stones or chronic kidney disease INVENTORY TAKER: Negative for abnormal vaginal bleeding, abnormal vaginal [...] (%) Date Value 06/10/2021 5.9 All in [facility] Impression/Recommendations ASSESSMENT: HTN (hypertension) Assessment: hx of [...] 8:07 AM PAGER/CONTACT #: documented in this encounterKindred Hospital [facility]01-12-2023 Miscellaneous Notes* Addendum Note - Yoni Tuttle [...] - 11/02/2022 12:33 PM EST Received from [facility] Report via fax. 8 pages indexed to chart. documented in this encounterKindred Hospital [facility]01-12-2023 History of Present illness Narrative* Annmarie Gillespie [...] complete. You will be wearing a Data Aircraft Engine Installer around your neck like a necklace during the test. You must keepthis near you at all times. The Data Aircraft Engine Installer has an EVENT button. You will be [...] is inside your body. Return the Data Aircraft Engine Installer to the [facility] after your test is completed. Brittanie Gillespie RN documented in this encounterKindred Hospital [facility]01-09-2023 NotePROCEDURE: XR FOOT RT MIN 3 [...] Electronically authenticated by: ZAIDA ACOSTA Date: 2022-11-14 10:39[facility]01-05-2023 NotePROCEDURE: XR FOOT RT MIN 3 VIEWS [...] authenticated by: NICKI DACOSTA Date: 2022-11-10 11:44[facility] [id number] Miscellaneous Notes* Telephone Encounter - Annmarie Gillespie RN - 11/10/2022 9:07 AM EST Telephoned patient with SmartPill procedure appointment reminder/instructions. Brittanie Gillespie RN documented in this encounterKindred Hospital [facility]01-04-2023 Miscellaneous Notes* Telephone Encounter - Regina Philippe [...] to make it legit. documented in this encounterKindred Hospital [facility]01-04-2023 Miscellaneous Notes* Telephone Encounter - Wali Doll - 11/09/2022 9:47 AM EST SENT PATIENTS RX TO PREFERRED LOCATION [facility] [phone] Wali Doll ENGLISH AND READING INSTRUCTOR documented in this encounterKindred Hospital [facility]01-03-2023 Miscellaneous Notes* Telephone Encounter - Regina Philippe - 11/08/2022 11:15 AM EST Per Soumya in provider services at [facility]. No prior auth is needed,coverage is active, patient can proceed with Smart Pill. Placed a new referral. Call Ref # [id number] * Telephone Encounter - Regina Philippe - 11/02/2022 3:51 PM EST Spoke with patient. Smart Pill is a covered benefit. Sent email to Smart Pill enforcement officer and [facility] to assist in scheduling Smart Pill [...] procedure, she can call Earlene Martin at [phone]. documented in this encounterKindred Hospital [facility]12-19-2022 Miscellaneous Notes* Telephone Encounter - Steffi Ross [...] calling: self Call patient at: at home [phone] (home) [phone] (cell) Closing statement: Symptom Call: Thank you for calling [facility], your call is very important. A nurse will call in approximately 2-4 hours during business hours. If this is an emergency, please contact 911. Nati Hernandez documented in this encounterKindred Hospital [facility]12-13-2022 Miscellaneous Notes* Telephone Encounter - Brooklyn Valle LPN - 10/18/2022 2:43 PM EST Requested Prescriptions Pending Prescriptions Disp Refills Dexlansoprazole 60 mg CpDM [Pharmacy Med Name: DEXLANSOPRAZOLE DR 60 MG CAP] 30 capsule 5 Sig: take 1 capsule by mouth before breakfast Patient last seen 10/11/2022 documented in this encounterKindred Hospital [facility]12-12-2022 NotePROCEDURE: XR FOOT RT MIN 3 VIEWS, [...] Electronically authenticated by: NICKI DACOSTA Date: 2022-10-17 18:06[facility]12-12-2022 NotePROCEDURE: XR FOOT RT MIN 3 VIEWS, [...] Electronically authenticated by: NICKI DACOSTA Date: 2022-10-17 18:06[facility]12-12-2022 Miscellaneous Notes* Telephone Encounter - Wali Doll - 10/17/2022 9:17 AM EST Faxed order, office notes, demographics, and sleep study to: DME name: [facility] fax: [phone] [facility] ph: ALSO SENT A REQUEST FOR PTS PSG FROM [facility] IN [place] documented in this encounterKindred Hospital [facility]12-06-2022 History of Present illness Narrative* Isra Masters, [...] (FLONASE) 50 mcg/actuation nasal spray Use 1 Kinsley in each nostril once daily. carBAMazepine XR (TEGRETOL XR) 400 mg 12 hr tablet Take 400 mg by mouth q 12 HR. ARIPiprazole (ABILIFY) 30 mg tablet Take 30 mg by mouth once daily. albuterol HFA (PROVENTIL HFA, VENTOLIN HFA) 90 mcg/actuation inhaler inhale 2 puffs by mouth INTO THE LUNGS every 4 hours if needed stohkgogtbq-ndrwbmsoj-knjsxqdb (TRELEGY ELLIPTA) 100-62.5-25 mcg Inhale 1 Puff [...] no edema RESPIRATORY: No dyspnea : neg INVENTORY TAKER: neg The remainder of the review of [...] Isra Masters DO 10/11/2022 documented in this encounterKindred Hospital [facility]12-05-2022 Evaluation note* Encounter Date Diagnosis Assessment Notes [...] for rotator cuff healing or recurrent tear [employer] Other 12-01-2022 Evaluation note* Encounter Date Diagnosis [...] note writ ten by Wanda Yang LPN, Severity Of Illness Coordinator. Edited and approved by Dr. Annette Harris MD. [place] [facility] Other 11-17-2022 Evaluation note* Encounter Date Diagnosis [...] educated regarding the risks and benefits of snf opioid use. She understands the associated risks [...] note writ ten by Lupillo Amezquita MA, Severity Of Illness Coordinator. Edited and approved by Dr. Annette Harris MD. [employer] Other 11-17-2022 Evaluation note* Encounter Date Diagnosis Assessment Notes Treatment Notes Treatment Clinical Notes Sep, Lumbosacral spondylosis without myelopathy (ICD-10 - M47.817) [employer] [facility] Other 11-09-2022 Evaluation note* Encounter Date Diagnosis [...] note writ ten by Wanda Yang LPN, Severity Of Illness Coordinator. Edited and approved by Dr. Annette Harris MD. [facility] Other 09-21-2022 NotePROCEDURE: XR ANKLE RT MIN [...] authenticated by: NICKI DACOSTA Date: 2022-07-27 19:[address] [place], [place] [address]1409-21-2022 NotePROCEDURE: XR ANKLE RT MIN 3 VIEWS, XR FOOT RT MIN 3 VIEWS COMPARISON: 01/06/2021 HISTORY: Pain of right ankle joint FINDINGS: BONES:Remote osteotomy head of the first metatarsal fixed with a single screw. No acute fracture or dislocation. SOFT TISSUES:Negative. No visible soft tissue swelling. EFFUSION:None visible. OTHER: Negative. IMPRESSION: No acute abnormality Electronically authenticated by: NICKI DACOSTA Date: 2022-07-27 19:[address] [place], [place] 5531409-20-2022 Miscellaneous Notes* Telephone Encounter - Silvia Ybarra - 07/26/2022 2:56 PM EDT PA for Dexlansoprazole initiated electronically. Awaiting response [employer] ID# [id number] * Telephone Encounter - Tracy Khan PSS - 07/26/2022 1:43 PM EDT Patient needs a prior authorization Medication Order name: Dexlansoprazole 60 mg [facility] Medication: DEXLANSOPRAZOLE 60 MG CAPSULE,BIPHASE DELAYED RELEASE [[id number]] Dispense as Written: No documented in this encounterKindred [facility]09-20-2022 History of Present illness Narrative* Mary Obrien [...] in the AM and 4 mg PM ftvdfzijcvu-buvmtlipa-jsepkmsc (TRELEGY ELLIPTA) 100-62.5-25 mcg Inhale 1 Puff [...] (FLONASE) 50 mcg/actuation nasal spray Use 1 Kinsley in each nostril once daily. carBAMazepine XR [...] which included preparing to see the patient, ykrw-kl-dfko patient care, completing clinical documentation, obtaining and/or reviewing separately obtained history, performing a medically appropriate examination, counseling and educating the pat ient/family/caregiver, ordering medications, tests, or procedures, and care coordination (not separately reported). Mary Obrien MD Colorectal Surgery documented in this encounterKindred [facility]09-20-2022 Nurse Note* Re Sierra MA - 07/26/2022 11:12 AM EDT What is the reason for your visit today? Established patient presents for post op. Who is your referring physician? Are you having poor oral intake? NO Have you had unintentional weight loss of 15 lbs/7 Kg in the last 3-6 months? NO Bowels: Wound: none Temperature: No Drains: No documented in this encounterKindred Hospital [facility]08-04-2022 NotePROCEDURE: In the coronal projection, without intravenous [...] and signed by Quinton Carson on 06/09/2022 111[address] Ykmuqwztei68-12-2376 Miscellaneous Notes* Telephone Encounter - Raquel Mullen - 06/07/2022 3:34 PM EDT [facility] The previous was sent to pharmacy [...] process accordingly. Raquel Mullen documented in this encounterKindred Hospital [facility]07-21-2022 Evaluation note* Encounter Date Diagnosis Assessment Notes [...] note writ ten by Lupillo Amezquita MA, Severity Of Illness Coordinator. Edited and approved by Dr. Annette Harris MD. [facility] Other 07-05-2022 Evaluation note* Encounter Date Diagnosis [...] Patient care instructions given in writing by [facility] document. [facility] Other 06-28-2022 Miscellaneous Notes* Telephone Encounter - [...] concerns at this time. documented in this encounterKindred [facility]06-21-2022 Miscellaneous Notes* Telephone Encounter - See Wong [...] procedure on 03/28. Thanks! documented in this encounterKindred Hospital [facility]06-17-2022 History of Present illness Narrative* Jessi Sheets [...] (FLONASE) 50 mcg/actuation nasal spray Use 1 Kinsley in each nostril once daily. carBAMazepine XR [...] THE LUNGS every 4 hours if needed bpqwzlbtdub-zvqirnemx-nfckgmix (TRELEGY ELLIPTA) 100-62.5-25 mcg Inhale 1 Puff [...] complications of treatment plan: low Jessi Sheets APRN.CNP Colorectal Surgery documented in this encounterKindred [facility]06-17-2022 Nurse Note* Mary Mena MA - 04/22/2022 12:06 PM EDT .What is the reason for your visit today? Post op Who is your referring physician? Self Are you having poor oral intake? NO Have you had unintentional weight loss of 15 lbs/7 Kg in the last 3-6 months? NO Bowels: regular Wound: none Temperature: No Drains: No documented in this encounterKindred Hospital [facility]06-02-2022 Miscellaneous Notes* Telephone Encounter - Rachael - 04/07/2022 12:35 AM EDT Record ID: [id number] Patient name: Mary Leal Date: April 06, [...] likely is it that you would recommend [facility] to a friend or family member? -> likely Please tell me what you liked best about your hospital experience: -> The nurses documented in this encounterKindred Hospital [facility]05-31-2022 NoteHNO ID: [id number] Author: Pravin Ladd MD Service: Colorectal Author Type: Resident Type: Progress Notes Filed: 04/05/2022 7:52 AM Note Text: COLORECTAL SURGERY PROGRESS NOTE Mary Leal [id number] ASSESSMENT AND PLAN Mary Leal is a [...] - General Pravin Ladd MD General Surgery residentSaints Medical CenterBqcdlxic60-26-6405 NoteHNO ID: [id number] Author: Nita Lamas MD Service: Colorectal Author Type: Fellow Type: Progress Notes Filed: 04/04/2022 9:40 AM Note Text: COLORECTAL SURGERY PROGRESS NOTE Mary Leal [id number] ASSESSMENT AND PLAN Mary Leal is a [...] Nita Lamas MD Colorectal Fellow 04/04/2022 9:40 [facility]05-29-2022 NoteHNO ID: [id number] Author: Pravin Ladd MD Service: Colorectal Author Type: Resident Type: Progress Notes Filed: 04/03/2022 8:03 AM Note Text: COLORECTAL SURGERY PROGRESS NOTE Mary Leal [id number] ASSESSMENT AND PLAN Mary Leal is a [...] - General Pravin Ladd MD General Surgery ResidentSaints Medical CenterAepcbgsi93-80-0811 NoteHNO ID: [id number] Author: Nancy Cadena MD Service: Colorectal Author Type: Resident Type: Progress Notes Filed: 04/02/2022 8:34 AM Note Text: COLORECTAL SURGERY PROGRESS NOTE Mary Leal [id number] ASSESSMENT AND PLAN Mary Leal is a [...] Nancy Cadena MD General Surgery Resident, PGY-2 [id number] [id number] NoteHNO ID: [id number] Author: Nancy Cadena MD Service: Colorectal Author [...] 2022 COLORECTAL SURGERY PROGRESS NOTE Mary Leal [id number] ASSESSMENT AND PLAN Mary Leal is a [...] Nancy Cadena MD General Surgery Resident, PGY-2 [id number] [id number] NoteHNO ID: [id number] Author: Yolanda Lamb MD Service: Colorectal Author Type: Resident Type: Progress Notes Filed: 03/31/2022 9:08 AM Note Text: COLORECTAL SURGERY PROGRESS NOTE Mary Leal [id number] ASSESSMENT AND PLAN Mary Leal is a [...] RESECTION AND ANASTOMOSIS - General Yolanda Lamb MDSaints Medical CenterMzuympcx37-29-5319 NoteHNO ID: [id number] Author: Pravin Ladd MD Service: Colorectal Author [...] 2022 COLORECTAL SURGERY PROGRESS NOTE Mary Leal [id number] ASSESSMENT AND PLAN Mary Leal is a 51 year old female with PMHx Asthma, HTN, BPD, Dyslipidemia and colonic inertia who is now s/p Hand assisted TAC, EI takedown + OANH 03/28 - D/C GRINDER AND PLATER - Advance to GI soft diet - [...] RESECTION AND ANASTOMOSIS - General Pravin Ladd MDSaints Medical CenterCezbyqbv91-07-0511 NoteHNO ID: [id number] Author: ELIZABETH Dias Service: Care Management Author Type: Cafeteria Clerk Type: Care Mgt Initial Assessment Filed: 03/29/2022 [...] time ADVANCE DIRECTIVES Current Advance Directive: None Director Of Exhibit Development Attempted to Assist with AD Completion: Yes [...] Housing Stability: Not on file PATIENT SCREEN 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 Stated Goals: To be cured/healed Under the [...] March 29, 2022 TIME: 3:45 PM PHONE: [phone] Cmehcylj74-93-9842 NoteHNO ID: [id number] Author: Pravin Ladd MD Service: Colorectal Author Type: Resident Type: Progress Notes Filed: 04/01/2022 5:50 AM Note Text: COLORECTAL SURGERY PROGRESS NOTE Mary Leal [id number] ASSESSMENT AND PLAN Mary Leal is a 51 year old female with PMHx Asthma, HTN, BPD, Dyslipidemia and colonic inertia who is now s/p Hand assisted TAC, EI takedown + OANH 03/28 - GRINDER AND PLATER for pain control - Magnesium replacement for [...] RESECTION AND ANASTOMOSIS - General Pravin Ladd MDSaints Medical CenterEhmjzwuu28-42-5440 NoteHNO ID: [id number] Author: Nathanael Craig DO Service: Anesthesiology Author Type: Anesthesiologist Type: Anesthesia Procedure Notes Filed: 03/28/2022 4:16 PM Note Text: ANESTHESIOLOGY PROCEDURE NOTE Peripheral Nerve Block General Information Procedure Start Time/Medication Administration: 03/28/2022 3:50 PM Procedure End time: 03/28/2022 3:55 PM Patient location during procedure: OR Timeout Performed Pre-procedure: timeout performed Consent Obtained: Yes 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: care seafood team member and arm band Reason for [...] 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 and care seafood team member Reason for block: post-op pain [...] March 28, 2022 TIME: 4:14 PM CSN: [id number] [id number] NoteHNO ID: [id number] Author: Carmen Stanley APRN.ELEVATOR REPAIR MECHANIC Service: Anesthesiology Author Type: Nurse Supervisor Feed Mill Type: Anesthesia Procedure Notes Filed: 03/28/2022 9:49 AM Note Text: ANESTHESIOLOGY PROCEDURE NOTE Airway General Information Procedure Start Time/Medication Administration: 03/28/2022 9:21 AM Patient location during procedure: OR 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, care seafood team member and patient Staffing ELEVATOR REPAIR MECHANIC: Carmen Stanely APRN.ELEVATOR REPAIR MECHANIC Performed by: ELEVATOR REPAIR MECHANIC Indications and Patient Condition Preoxygenated: yes Difficult [...] March 28, 2022 TIME: 9:49 AM CSN: [id number] NoteHNO ID: [id number] Author: Carmen Stanley APRN.ELEVATOR REPAIR MECHANIC Service: Anesthesiology Author Type: Nurse Supervisor Feed Mill Type: Anesthesia Procedure Notes Filed: 03/28/2022 9:49 [...] March 28, 2022 TIME: 9:48 AM CSN: [id number] Miscellaneous Notes* Telephone Encounter - See Wong [...] colon. Would like a call back at [phone] documented in this encounterKindred [facility]05-10-2022 Miscellaneous Notes* Telephone Encounter - Jennie Moreno RN - 03/15/2022 2:39 PM EDT Outside medical record EGD H Pylori biopsy received by fax. Scanned into [employer] under scanned documents. Hard copy handed to Dr. Masters. Per Dr Masters- please call patient and let her know the H Pylori biopsy is negative. Called patient . Message relayed. No questions at this time. * Telephone Encounter - Karthikeyan Turk RN - 03/15/2022 2:21 PM EDT Called [facility] and I was transferred to medical records. Requesting a cover sheet with the request result be faxed to them at [phone]. H Pylori result request faxed with confirmation. * Telephone Encounter - Karthikeyan Turk RN - 03/15/2022 2:21 PM EDT Images from the original note were not included. DO Leo Mariano Ddsi Clinical Pool Please contact [facility] [phone] to see if the H pylori biopsy is back yet from her EGD there documented in this encounterKindred Hospital [facility]05-10-2022 Evaluation note* Encounter Date Diagnosis Assessment Notes [...] note writ ten by Wanda Yang LPN, Severity Of Illness Coordinator. Edited and approved by Dr. Annette Harris MD. [facility] Other 05-10-2022 Miscellaneous Notes* Telephone Encounter - Silvia Ybarra - 03/15/2022 1:24 PM EDT PA for Dexilant renewal initiated through [employer]. Awaiting response ID# [id number] Rx BIN [id number] Rx PCN MCAIDOH Rx Grp [id number] documented in this encounterKindred Hospital [facility]05-10-2022 Miscellaneous Notes* Telephone Encounter - See Wong RN - 03/15/2022 9:28 AM EDT She called the office with complaints of dark red blood in her ostomy bag for the last 2 weeks. [place]was down in [place] when it started. She had an EGD in [place] that showed gastritis. She followed up with [...] concerns at this time. documented in this encounterKindred Hospital [facility]05-10-2022 History of Present illness Narrative* Isra Masters [...] seem be musculoskeletal in nature.EGD done in [facility] showed some gastritis and duodenitis. Current [...] (FLONASE) 50 mcg/actuation nasal spray Use 1 Kinsley in each nostril once daily. carBAMazepine XR [...] THE LUNGS every 4 hours if needed tlfoxpqwjcr-zoifdghfv-sepzfdgp (TRELEGY ELLIPTA) 100-62.5-25 mcg Inhale 1 Puff [...] no edema RESPIRATORY: No dyspnea : neg INVENTORY TAKER: neg The remainder of the review of [...] Isra Masters DO 03/15/2022 documented in this encounterKindred Hospital [facility]05-09-2022 Instructions* Patient Instructions* Umrila Alexander APRN.CHILD DAY CARE PROVIDER - 03/14/2022 10:43 AM EDT PATIENT PREOPERATIVE INSTRUCTIONS Mary Obrien MD has scheduled you for your procedure at this surgery center: [facility]: [phone] --[address] [address]. Please check in on the1st floor at [...] Procedures: - YOU MUST HAVE A RESPONSIBLE DESIGN SPECIALIST TAKE YOU HOME. A INSPECTOR AIR CARRIER OR MONOGRAM MAKER CANNOT BE MADE A RESPONSIBLE DESIGN SPECIALIST. - We recommend that a responsible [...] Advance Directive, please fax a copy to [phone] or email to for it to be [...] your chart that day. documented in this encounterKindred Hospital [facility]05-09-2022 History and physical note * Urmila Alexander APRN.CNP - 03/14/2022 10:30 AM EDT Images from the original note were not included. HISTORY AND PHYSICAL EXAMINATION SERVICE DATE: 03/14/2022 SERVICE TIME: 11:03 AM PRIMARY CARE PHYSICIAN: Eliceo Gómez DO REASON FOR VISIT: Mary Zoya Leal is a 51 year [...] fevers. Neurological: No history of TIA's, stroke, SASH FINISHER tumor, impaired sensorium, hemiplegia, paraplegia orquadraplegia. No [...] > 1 time per night or hematuria. INVENTORY TAKER: Negative for abnormal vaginal bleeding, abnormal vaginal [...] every 4 hours if needed Taking Yes sganjejchea-dtlmnmoat-wmewawev (TRELEGY ELLIPTA) 100-62.5-25 mcg Inhale 1 Puff [...] (FLONASE) 50 mcg/actuation nasal spray Use 1 Kinsley in each nostril once daily. No medication [...] or any previous visit (from the past 53733 hour(s)). EKG: Assessment HTN (hypertension) Assessment: Managed [...] of difficult airway No abnormal airway history [id number] Score: Age: <65 Sex: Female Hypertension history: [...] 10:30 AM PAGER/CONTACT #: documented in this encounterKindred Hospital [facility]04-25-2022 Miscellaneous Notes* Telephone Encounter - Isra Masters [...] Monday, 03/02, at 0900 - routed to [employer] pool to make it legit. Please advise. documented in this encounterKindred Hospital [facility]04-15-2022 Instructions* Patient Instructions* Nelsy Chávez APRN.CNP - 02/18/2022 1:18 PM EDT Healing as expected from surgery. You have a pinpoint area of suture just under the vaginal epithelium surface that may need more time to fully heal. Please call the office if you would like to try vaginal estrogen cream or with any questions/concerns. documented in this encounterKindred Hospital [facility]04-15-2022 History of Present illness Narrative* Nelsy Chávez [...] no Pain: no Abnormal Vaginal Discharge: no INVENTORY TAKER HISTORY: Last pap: cannot remember; Last mammogram: She has never had a mammogram LMP: No LMP recorded. Patient has had a hysterectomy.; Menopause n/a: Menstrual history: NA; Deliveries: I have confirmed and edited as necessary, the PFSH obtained by others. Nelsy Chávez APRN.CHILD DAY CARE PROVIDER Lubricating Machine Tender offered: Patient declines. OBJECTIVE: There were no [...] if this helps. She is traveling to [place] to see her ailing father for two weeks and would like to wait for now to see if things resolve. She knows she can call the office if she changes her mind and would like to trial vaginal estrogen Nelsy Chávez APRN.KWESI documented in this encounterKindred Hospital [facility]04-08-2022 History of Present illness Narrative* Flaca Bartholomew, [...] 15 Flaca Bartholomew PT documented in this encounterKindred Hospital [facility]04-05-2022 Nurse Note* Re Sierra MA - 02/08/2022 [...] Temperature: No Drains: No documented in this encounterKindred Hospital [facility]04-05-2022 History of Present illness Narrative* Mary Obrien [...] (FLONASE) 50 mcg/actuation nasal spray Use 1 Kinsley in each nostril once daily. carBAMazepine XR [...] THE LUNGS every 4 hours if needed cyawrudcqzf-iugjeqsxd-oqpyxadw (TRELEGY ELLIPTA) 100-62.5-25 mcg Inhale 1 Puff [...] medical complications of surgery including DVT/PE, PNA, VA, stroke, and . The patient understands these risks and is in agreement with proceeding. Medical Decision Making: Data Reviewed: Tests & Documents Reviewed/ordered: Review of prior notes from myself, OR, Dr. Wang Review of prior operative reports I have discussed Mary Leal's treatment plan and/or results with the patient. Mary Obrien MD Colorectal Surgery documented in this encounterKindred Hospital [facility]04-05-2022 History of Present illness Narrative* Magali Mitchell, DISH CLOTH INSPECTOR.CHILD DAY CARE PROVIDER - 02/08/2022 11:04 AM EDT Female Pelvic [...] you received about pain medications helpful? Yes Lubricating Machine Tender offered:Patient declines OBJECTIVE: BP 113/76 Pulse 74 [...] understanding. Magali Mitchell APRN.KWESI documented in this encounterKindred Hospital [facility]03-29-2022 Miscellaneous Notes* Telephone Encounter - Steffi Ross LPN - 02/01/2022 11:08 AM EDT [facility] 8 Pharmacy and Rx request verified. Please file if appropriate. Thank you Steffi Ross LPN documented in this encounterKindred Hospital Dayton03-28-2022 NoteHNO ID: [id number] Author: Newton Woodward, PT Service: ? Author [...] Service Patient transferring care to: [facility]- Flaca Bartholomew SUBJECTIVE: Patient Reason for Visit: [...] untimed codes) : 40 Newton Woodward PT, [facility]03-28-2022 History of Present illness Narrative* Newton Woodward, [...] Service Patient transferring care to: [facility]- Flaca Bartholomew SUBJECTIVE: Patient Reason for Visit: [...] Newton Woodward PT, DPT documented in this encounterKindred Hospital [facility]03-21-2022 NoteHNO ID: [id number] Author: Newton Woodward PT Service: ? Author Type: Physical Therapist Type: Progress Notes Filed: 01/24/2022 1:23 PM Note Text: Episode Visit Count: 2 Therapist That Will Oversee The Plan Of Care: La ramirez transfer to [facility] Flaca Start of Care Date: 01/18/22 Onset Date: 12/24/21 Plan of Care Certification Date: 01/18/22 Next Certification Due Date: 05/14/22 Patient Identified by Name and Date of [...] untimed codes) : 45 Newton Woodward PT, [facility]03-15-2022 NoteHNO ID: [id number] Author: Jessi Isaacs PT Service: ? Author Type: Physical Therapist Type: Progress Notes Filed: 01/18/2022 1:56 PM Note Text: Episode Visit Count: 1 Therapist That Will Oversee The Plan Of Care: La then transfer to [facility] Start of Care Date: 01/18/22 Onset [...] Planned: 8 Planned Treatment Interventions: Therapeutic exercise (90180);Neuromuscular re-education (89060);Manual therapy (16605);Therapeutic activities (07014);Self-mcfp management (46618);Patient/Family/Caregiver Education PLAN FOR NEXT VISIT: PFM dynamics; biofeedback Patient demonstrates good understanding of plan of care and treatment. The above goals and plan of care were discussed and agreed upon by patient/family. Transfer of Care Due To: Closer to Home (patient to transfer in February 2022) Patient transferring care to: [facility] Flaca Bartholomew SUBJECTIVE: Mary Leal is a [...] function/quality of life. 52 (more content not included)..[facility]02-21-2022 NoteHNO ID: [id number] Author: Moni Munguia RN Service: Care Management Author Type: Registered Nurse Type: Care Mgt Progress Note Filed: 12/27/2021 4:17 PM Note Text: CARE MANAGEMENT DISCHARGE NOTE SERVICE DATE: 12/27/2021 SERVICE TIME: 4:14 PM LOS: 3 days Admission Date: 12/24/2021 DISCHARGE ARRANGEMENT (list agency and phone number) Discharge Arrangement: Home with Home Health Provider Name: [address] CAREGIVER ASSESSMENT: HANDOFF COMMUNICATION: Handoff to: Primary Care Physician Primary Care Physician Name/Phone: Eliceo Gómez Jr [phone] TRANSPORTATION ARRANGEMENTS: Transportation Arrangements: N/A The Pt is accepted by [address] for new ostomy care. The SOC will be within 24 to 48 hrs. The pt will be contacted directly with the SOC. The Pt verbalized agreement with this dc plan. SIGNATURE: Moni Munguia RN PATIENT NAME: Mary Leal DATE: December 27, 2021 TIME: 4:14 PM PAGER/CONTACT #: [phone] [id number] NoteHNO ID: [id number] Author: Parish Celeste DO Service: Colorectal Author [...] - Pain and nausea control -> d/c GRINDER AND PLATER - D/c entereg - Culturelle - Continue [...] 0659 12/27/21 07 - 12/28/21 0659 Shift 0073-9442 6476-4464 4307-4542 24 Hour Total 7782-2720 8037-7187 4538-0244 24 Hour Total INTAKE PO 60 60 PO 60 60 IV 2099 2100 Volume (mL) (lactated ringers iv infusion) 2099 2099 Shift Total 216 2160 OUTPUT Urine 8414 504 1629 2300 200 200 Void (ml) 300 1000 1300 200 200 Output ( Indwelling Urinary Catheter 12/24/21 Call 16 Fr) 1000 1000 Emesis 0 0 Emesis (ml) 0 0 Ostomy 250 125 375 Ileostomy 1 250 125 375 # of BMs Number of BMs 0 x 0 x Shift Total 9022 851 3014 2675 200 200 Weight (kg) 82.1 82.1 82.1 82.1 82.1 82.1 82.1 82.1 Recent Labs 12/26/21 0755 12/25/21 0606 WBC -- 5.96 HB -- 11.6 HCT -- 35.2* PLT -- 271 NA 139 141 K 4.0 4.0 CHLOR 102 104 CO2 28 28 CREAT 0.62* 0.72 BUN 10 12 GLUC 71 91 CA 8.5 8.5 Parish Celeste DO General Surgery, PGY-4 [id number] After 6 pm and on the weekends please page [phone] 12-26-2021 NoteHNO ID: [id number] Author: Jenifer Ayala MD Service: Colorectal Author Type: Fellow Type: Progress Notes Filed: 12/26/2021 12:13 PM Note Text: GENERAL SURGERY PROGRESS NOTE Name: Mary Leal 12/26/2021 12:11 PM Interval Events: Patient doing well post-operatively. No acute events overnight. Tolerating CLD diet without nausea or vomiting. Stoma productive of bilious fluid + gas Pain well controlled with GRINDER AND PLATER + oral pain medication (feels most relief from po oxycodone). Assessment and Plan: 51 year old female with pelvic organ prolapse and chronic constipation, likely slow transit but with possible component of pelvic outlet obstruction and with discordant testing. Patient underwent laparoscopic protopexy on 12/24/21 surgery was uneventful. Post-operative course has been uncompliacted. Pain control- Tylenol Gabapentin Toradol GRINDER AND PLATER: Dilaudid, tegretol, klonopin, requip, trintellix, oxycodone Cardiac- [...] any questions or concerns page [facility] [id number] Objective Physical exam: BP 117/66 Pulse 77 [...] 0659 12/26/21 07 - 12/27/21 0659 Shift 7541-0606 3607-7758 2153-4758 24 Hour Total 7723-2115 8738-7909 9338-6802 24 Hour Total INTAKE PO 60 60 PO 60 60 IV 213 668 881 Volume (mL) (lactated ringers iv infusion) 213 668 881 Shift Total 273 668 941 OUTPUT Urine 266 073 7243 1000 Void (ml) 0 0 Output ( Indwelling Urinary Catheter 12/24/21 Call 16 Fr) 373 352 4339 1000 Emesis 0 0 Emesis (ml) 0 0 Ostomy 100 100 Ileostomy 1 100 100 # of BMs Number of BMs 0 x 0 x Shift Total 875 008 4444 1000 Weight (kg) 82.1 82.1 82.1 82.1 [...] Diagnosis Date Noted - Pelvic floor dysfunction 12/24/2021[facility]Oodk[facility]lf12-72-1310 NoteHNO ID: [id number] Author: Sonido Owen MD Service: Colorectal Author [...] been uncompliacted. Pain control- Tylenol Gabapentin Toradol GRINDER AND PLATER: Dilaudid, tegretol, klonopin, requip, trintellix Cardiac- Vitals: [...] Owen MD General Surgery PGY 2 Pg [phone] For any questions or concerns page [facility] [id number] Objective Physical exam: BP 111/61 Pulse 86 [...] 0659 12/25/21 07 - 12/26/21 0659 Shift 4646-3194 0982-1839 9505-5906 24 Hour Total 6718-2375 2099-3769 0239-0487 24 Hour Total INTAKE PO 240 120 360 PO 240 120 360 IV 3100 3100 Volume (mL) (lactated ringers iv infusion) 1800 1800 Volume (mL) (lactated ringers iv infusion) 1300 1300 Shift Total 3100 830 887 4404 OUTPUT Urine 200 707 486 1845 OR Urine Output 200 200 Output ( Indwelling Urinary Catheter 12/24/21 Call 16 Fr) 300 500 800 Emesis 0 0 0 Emesis (ml) 0 0 0 Ostomy 0 0 0 Ileostomy 1 0 0 0 # of BMs Number of BMs 0 x 0 x 0 x Blood 50 50 Estimated Blood loss 50 50 Shift Total 250 617 561 5009 Weight (kg) 82.1 82.1 82.1 82.1 82.1 [...] Diagnosis Date Noted - Pelvic floor dysfunction [facility]21[id number] NoteHNO ID: [id number] Author: Carmen Stanley APRN.ELEVATOR REPAIR MECHANIC Service: Anesthesiology Author Type: Nurse Supervisor Feed Mill Type: Anesthesia Procedure Notes Filed: 12/24/2021 8:44 [...] December 24, 2021 TIME: 8:44 AM CSN: [id number] NoteHNO ID: [id number] Author: Carmen Stanley APRN.CRNA Service: Anesthesiology Author Type: Nurse Supervisor Feed Mill Type: Anesthesia Procedure Notes Filed: 12/24/2021 8:44 AM Note Text: ANESTHESIOLOGY PROCEDURE NOTE Airway General Information Procedure Start Time/Medication Administration: 12/24/2021 8:22 AM Patient location during procedure: OR 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 Edited and approved by Dr. Annette Harris MD. [facility] Other 11-01-2021 Evaluation note* Encounter Date Diagnosis [...] note writ ten by Lupillo Amezquita MA, Severity Of Illness Coordinator. Edited and approved by Dr. Annette Harris MD. [facility] Other 10-14-2021 Evaluation note* Encounter Date Diagnosis [...] no improvement in 2 to 3 days. [facility] Other 10-08-2021 Evaluation note* Encounter Date Diagnosis [...] Patient care instructions given in writting by [facility] document [facility] Other 10-07-2021 Evaluation note* Encounter Date Diagnosis [...] Aug, Other chronic pain (ICD-10 - G89.29) [facility] Other 09-22-2021 Evaluation note* Encounter Date Diagnosis [...] Jul, Other chronic pain (ICD-10 - G89.29) [facility] Other 03-01-2021 Note [id number]:127[facility] 01-04-2021 NoteCystoscopy with Botox injection ? [...] if you have a fever over 100 degrees.[facility] 11-11-2020 NoteChief Complaint Pt is here [...] Dawna Marmolejo MD [address] [place] [address]- [phone] Additional Instructions: F/u in 1yr. Patient Education Urinary Frequency I, Christy Gill , personally scribed for Dr. Marmolejo on 11/11/2020 12:07:15. Electronically signedby scrmike Gill on 11/11/2020 12:07:15. Documentation recorded by [...] deficit disorder Bipolar disorder (more content not included)...[facility] Comment on above:Result Comment: Electronically Signed By: Dawna Marmolejo MD\.br\Date and Time Signed: 11/11/2111:16 EST\.br\Electronically Co-Signed By: Christy Gill MA\.br\Date and Time Co-Signed: 11/11/20 12:07 [id number]:127[facility] Hospital[facility] Narrative - Reported* MARY LEAL is being seen for an initial evaluation of. * 52-year-old female seen in cardiology consultation at the request of her primary care physician forelevated troponin while in [facility] this past spring that was associated with a GI bleed/gastritis. * Patient recently underwent large bowel resection details of which are unknown and I suspect possibly consistent with ulcerative colitis but again unknown pathology. She had a diverting colostomy with3 anastomosis performed. While in [place] with her GI bleed and primarily gastric [...] * I believe minor troponin elevation in [place] was simply at small type II non- VA troponin elevationrelated to inflammation and gastritis and [...] colectomy. She can follow-up as needed otherwise. -[facility] DO Work Phone: Evaluation note* Diagnosis Pelvic floor dysfunction- Primary Pelvic muscle wasting Lack of coordination Follow-up examination after colorectal surgery Follow-up examination, following other surgery [facility] Diagnosis Gastroesophageal reflux disease, unspecified whether esophagitis present [facility]* Diagnosis Follow-up examination after colorectal surgery- Primary Follow-up examination, following other surgery documented in this encounter [facility] note* Diagnosis Post-operative state- Primary Other postprocedural status Yeast infection of the skin Candidiasis of skin and nails documented in this encounter [facility] note* Diagnosis Pelvic floor dysfunction- Primary Pelvic muscle wasting Lack of coordination Follow-up examination after colorectal surgery Follow-up examination, following other surgery documented in this encounter [facility] note* Diagnosis Postoperative state- Primary Other postprocedural status Attention to ileostomy ([facility]) Attention to ileostomy documented in this encounter [facility] note* Diagnosis Preop examination- Primary Preoperative examination, unspecified Attention to ileostomy ([facility]) Attention to ileostomy Primary hypertension Unspecified essential hypertension Gastroparesis Gastroesophageal reflux disease, unspecified whether esophagitis present Mild persistent asthma without complication Unspecified asthma Bipolar 1 disorder (HCC) Bipolar I disorder, most recent episode (or current) unspecified Obesity (BMI 30.0-34.9) Obesity, unspecified Attention to ileostomy ([facility]) Attention to ileostomy documented in this encounter [facility] note* Diagnosis Gastroesophageal reflux disease, unspecified whether esophagitis present Chronic idiopathic constipation Unspecified constipation Attention to ileostomy ([facility]) Attention to ileostomy documented in this encounter [facility] note* Diagnosis Follow-up examination after colorectal surgery- Primary Follow-up examination, following other surgery Pelvic floor dysfunction Pelvic muscle wasting [facility] this [facility] noteNo InformationNocolumbia [facility] hospital DocSpera Other Evaluation noteNocolumbia regional hospital DocSpera Other Evaluation note* Diagnosis Follow-up examination after colorectal surgery- Primary Follow-up examination, following other surgery Periumbilical abdominal pain Abdominal pain, periumbilic Outlet dysfunction constipation Colonic inertia Other functional disorders of intestine documented in this encounter [facility] noteNo assessment information [facility] Work Phone: Evaluation note* Diagnosis Gas bloat syndrome- Primary Chronic idiopathic constipation Unspecified constipation Gastroparesis documented in this encounter [facility] note* Diagnosis Gastroesophageal reflux disease, unspecified whether esophagitis present documented in this encounter [facility] note* Diagnosis Gastroparesis- Primary [facility] CHUCKIE (obstructive sleep apnea)- Primary Obstructive sleep apnea (adult) (pediatric) [facility]* Diagnosis Pre-op exam- Primary Preoperative examination, unspecified Primary hypertension Unspecified essential hypertension Mild persistent asthma without complication Unspecified asthma Gastroparesis CHUCKIE (obstructive sleep apnea) Obstructive sleep apnea (adult) (pediatric) documented [facility]* Diagnosis CHUCKIE (obstructive sleep apnea)- Primary Obstructive sleep apnea (adult) (pediatric) documented [facility]* Diagnosis Chronic idiopathic constipation- Primary Unspecified constipation Nausea Nausea alone [facility] Diagnosis Gastroesophageal reflux disease with esophagitis without hemorrhage- Primary [facility]* Diagnosis Colonic inertia- Primary Other functional disorders of intestine Pelvic floor dysfunction Pelvic muscle wasting Nausea Nausea alone Gastroparesis documented [facility]* Diagnosis Pylorospasm- Primary Functional dyspepsia Dyspepsia and other specified disorders of function of stomach Gastroesophageal reflux disease with esophagitis without hemorrhage [facility] Diagnosis Gastroesophageal reflux disease, unspecified whether esophagitis present [facility] Diagnosis CHUCKIE (obstructive sleep apnea)- Primary Obstructive sleep apnea (adult) (pediatric) [facility]* Diagnosis Pylorospasm- Primary Functional dyspepsia Dyspepsia and other specified disorders of function of stomach Gastroesophageal reflux disease with esophagitis without hemorrhage [facility] Diagnosis Gastroparesis- Primary [facility]* Diagnosis Preop examination- Primary Preoperative examination, unspecified Nausea Nausea alone CHUCKIE (obstructive sleep apnea) Obstructive sleep apnea (adult) (pediatric) Mild persistent asthma without complication Unspecified asthma Gastroesophageal reflux disease, unspecified whether esophagitis present Gastroparesis [facility] Diagnosis 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 Personal history of other diseases of digestive system [facility] Diagnosis Gastroesophageal reflux disease, unspecified whether esophagitis present [facility]* Diagnosis Incomplete bladder emptying- Primary Constipation, unspecified constipation type Urinary urgency Urgency of urination Urinary frequency Nocturia [facility]* Diagnosis Upper abdominal pain- Primary Abdominal pain, other specified site [facility]* Diagnosis Burning with urination- Primary Dysuria documented in this [facility] note* Diagnosis Ashley vaginitis Candidiasis of vulva and vagina documented in this encounter [facility] general Narrative - Reported* Type Description Date [...] see above list Hospitalization History respiratory 02/2020 [facility] Other History general Narrative - ReportedNoAvokia Other [facility] general Narrative - Reported* Type Description Date [...] see above list Hospitalization History respiratory 02/2020 [facility] Other InstructionsNot on filedocumented in this encounter [facility] (narrative)* Outpatient Procedure (Routine) - Pending Review Specialty Diagnoses / Procedures Referred By Gustavo salazar Referred To Contact [facility] Diagnoses Gastroparesis Procedures CAPSULE ENDOSCOPY Isra Kitchen DO [facility] [address] [place] [address] [facility] [address] [place] [address] Referral ID Status Reason Start Date Expiration Date Visits Requested Visits Authorized [id number] Pending Review Auto-Generat ed Referral 10/11/2022 10/11/2023 1 1 [facility] for referral (narrative)* Outpatient Procedure (Routine) - Pending Review Specialty Diagnoses / Procedures Referred By Contac t Referred To Contact [facility] Diagnoses Chronic idiopathic constipation Procedures SIGMOIDOSCOPY SIGMOIDOSCOPY FLX DX W/COLLJ SPEC BR/WA IF PFRMD Isra Masters DO [facility] [address] [place] [address] [address] Referral ID Status Reason Start Date Expiration Date Visits Requested Visits Authorized [id number] Pending Review Auto-Generat ed Referral 11/30/2022 11/30/2023 1 1 [facility] Outpatient Procedure (Routine) - Pending Review Specialty Diagnoses / Procedures Referred By Contac t Referred To Contact [facility] Diagnoses Gastroparesis Procedures EGD - THERAPEUTIC, EUS, OR TUBE INTERVENTIONS ESOPHAGOGASTRODUODENOSC OPY TRANSORAL DIAGNOSTIC STOMACH SURGERY PROCEDURE UNLISTED [place] [address] [address] Referral ID Status Reason Start Date Expiration Date Visits Requested Visits Authorized [id number] Pending Review Auto-Generat ed Referral 01/11/2023 01/12/2024 1 1 [facility] Outpatient Procedure (Routine) - Pending Review Specialty Diagnoses / Procedures Referred By Contac t Referred To Contact [facility] Diagnoses Incomplete bladder emptying Urinary urgency Urinary frequency Nocturia Procedures URODYNAMICS WHI COMPLX CYSTOMETRO W/VOID PRESS&URETHRAL PROFILE Nelsy Chávez APRN.CHILD DAY CARE PROVIDER [address] [place] [address] [facility] [address] [place] [address] Referral ID Status Reason Start Date Expiration Date Visits Requested Visits Authorized [id number] Pending Review Auto-Generat ed Referral 07/31/2023 07/30/2024 1 1 [facility] (n[facility]ative)* Consultation (Routine) - Open Specialty Diagnoses / Procedures Referred By Gustavo salazar Referred To Contact Family Medicine Diagnoses Upper abdominal pain Lev Ritter APRN CHILD DAY CARE PROVIDER [address] [place] [id number] [facility] [address] [facility] [place] [address] Referral ID Status Reason Start Date Expiration Date Visits Re quested Visits Authorized [id number] Open 08/12/2023 09/12/2024 1 1 [facility] for visit NarrativeDISCUSS OTHER OPTIONS PRIOR TO PROCEDURENocolumbia regional hospital DocSpera Other Reason for visit NarrativeRECHECK CERVICAL PAIN DISCUSS PROCEDURENort DocSpera Other Reason for visit Narrative* Outpatient Procedure (Routine) - Closed Specialty Diagnoses / Procedures Referred By Gustavo t Referred To Contact [facility] Diagnoses Gastroparesis Procedures GI TRANSIT & PRES RAVINDER WIRELESS CAPSULE W/INTERP Isra Masters [facility] [address] [place] [address] [facility] [place] [address] [place] [address] Referral ID Status Reason Start Date Expiration Date Visits Re quested Visits Authorized [id number] Closed 11/08/2022 11/05/2023 1 1 [facility] Summary Purpose Family History No Family History [...] FoundDocuments on File Type Date Recorded Patient Woods Warden Expl anation Advance Directive(s) 10/13/2021 4:09 PM Advance Directive(s) 10/14/2020 8:14 AM Documents on File Type Date Recorded Patient Woods Warden Expl anation Advance Directive(s) 10/13/2021 4:09 PM Advance Directive(s) 10/14/2020 8:14 AM Documents on File Type Date Recorded Patient Woods Warden Expl anation Advance Directive(s) 03/21/2022 1:42 PM [...] Masters DO [facility] [address] [place] [address] Referral ID Status Reason Start Date Expiration Date Visits Re quested Visits Authorized [id number] Closed 1 1 Referral ID Status Reason Start Date Expiration Date V isits Requested Visits Authorized [id number] Pending Review 1 1 Specialty Diagnoses / Procedures Referred By Gustavo t Referred To Contact CT IMAGING Diagnoses Periumbilical abdominal pain Procedures CT ABD/PEL W IVCON CT ABD & PELVIS W/[place] [address] [place] [address] Ct Imaging Referral ID Status Reason Start Date Expiration Date Visits Requested Visits Authorized [id number] Pending Review Auto-Generat ed Referral 08/02/2022 08/25/2023 1 1 Reason BILATERAL SHOULDER P AIN Diagnosis 1 Shoulder pain (M25.5 19) Referral Organization [facility] Referring Provider First Name Annette Referring Provider Last Name Pradeeptonia Referring Provider Specialty Pain Medici ne Referred Organization [facility] Referred Provider Annette Cartagena Referred Address [address] [place] [place],[address] Referred Provider Specialty Orthopedic S urgery Referral Priority Routine Referral Appointment Date 2022-10-10 General Notes Kim Manley 10:01:46 AM >patient already scheduled with [facility] 10/10/22 at 1:30pm. Sending p2p at this time Referral ID Status Reason Start Date Expiration Date Visits Re quested Visits Authorized [id number] Closed 1 1 Chief Complaint and Reason [...] weakness, dizziness, diaphoresis with recent work-up that [facility] emergency room. Reportedly her troponins [...] of which are currently being investigated at [facility] (now her fourth GI specialist). * Last year while in [place] she had similar issues with elevated troponins in the ED and underwent heart catheterization that did not reveal any specific significant disease, details of the discharge summary are reviewed * She [facility], the report is reviewed, she hasno evidence [...] disease, will investigate the troponin rise at [facility] however I believe this is likely a non- VA troponin elevation, likely associated withunderlying inflammatory bowel disease. We will follow-up on a as needed basis unless further objective data come to light * Patient is a 53-year-old female who returns at the request of her primary care physician with episodic chest discomfort associated weakness, dizziness, diaphoresis with recent work-up that [facility] emergency room. Reportedly her troponins [...] of which are currently being investigated at [facility] (now her fourth GI specialist). * Last year while in [place] she had similar issues with elevated troponins in the ED and underwent heart catheterization that did not reveal any specific significant disease, details of the discharge summary are reviewed * She underwent recent [facility], the report is reviewed, she hasno evidence [...] disease, will investigate the troponin rise at [facility] however I believe this is likely a non- [facility] troponin elevation, likely associated withunderlying inflammatory bowel disease. We will follow-up on a as needed basis unless further objective data come to light Additional Source Comments INFORMATION SOURCE (unrecogn ized section and content) DATE CREATED AUTHOR 07/08/2021 [facility] DATE CREATED AUTHOR AUTHOR'S ORGANIZ ATION 11/18/2021 [facility] DATE CREATED AUTHOR AUTHOR'S ORGANIZ ATION 02/01/2022 [facility] DATE CREATED AUTHOR AUTHOR'S ORGANIZ ATION 04/05/2022 [facility] DATE CREATED AUTHOR AUTHOR'S ORGANIZ ATION 09/29/2022 [facility] DATE CREATED AUTHOR AUTHOR'S ORGANIZ ATION 12/09/2022 [facility] DATE CREATED AUTHOR AUTHOR'S ORGANIZ ATION 04/16/2023 [facility] DATE CREATED AUTHOR AUTHOR'S ORGANIZ ATION 06/14/2023 [facility] DATE CREATED AUTHOR AUTHOR'S ORGANIZ ATION [facility]/2023 [facility] DATE CREATED AUTHOR AUTHOR'S ORGANIZ ATION 09/02/2023 [facility] DATE CREATED AUTHOR AUTHOR'S ORGANIZ ATION 10/27/2023 [facility] DATE CREATED AUTHOR AUTHOR'S ORGANIZ ATION 11/28/2023 [facility] DATE CREATED AUTHOR AUTHOR'S ORGANIZ ATION 12/02/2023 [facility] Special[facility] DATE CREATED AUTHOR AUTHOR'S ORGANIZ ATION 12/06/2023 [facility] DATE CREATED AUTHOR AUTHOR'S ORGANIZ ATION 12/15/2023 [facility] DATE CREATED AUTHOR AUTHOR'S ORGANIZ ATION 12/19/2023 [facility] Source Comments (unrecognize d section and content) In the event this informatio n is protected by the Federal Confidentiality of Alcohol and Drug Abuse Patient Records regulations: The Federal rules restrict any use of the information to criminally investigate or prosecute any alcohol or drug abuse patient.[facility] Dayton[facility] the event this information is protected by the Federal Confidentiality of Alcohol and Drug Abuse Patient Records regulations: The Federal rules restrict any use of the information to criminally investigate or prosecute any alcohol or drug abuse patient.[facility] DaytonIn the event this information is protected by the Federal Confidentiality of Alcohol and Drug Abuse Patient Records regulations: The Federal rules restrict any use of the information to criminally investigate or prosecute any alcohol or drug abuse patient.[facility] DaytonIn the event this information is protected by the Federal Confidentiality of Alcohol and Drug Abuse Patient Records regulations: The Federal rules restrict any use of the information to criminally investigate or prosecute any alcohol or drug abuse patient.[facility] DaytonIn the event this information is protected by the Federal Confidentiality of Alcohol and Drug Abuse Patient Records regulations: The Federal rules restrict any use of the information to criminally investigate or prosecute any alcohol or drug abuse patient.[facility] DaytonIn the event this information is protected by the Federal Confidentiality of Alcohol and Drug Abuse Patient Records regulations: The Federal rules restrict any use of the information to criminally investigate or prosecute any alcohol or drug abuse patient.[facility] DaytonIn the event this information is protected by the Federal Confidentiality of Alcohol and Drug Abuse Patient Records regulations: The Federal rules restrict any use of the information to criminally investigate or prosecute any alcohol or drug abuse patient.[facility] DaytonIn the event this information is protected by the Federal Confidentiality of Alcohol and Drug Abuse Patient Records regulations: The Federal rules restrict any use of the information to criminally investigate or prosecute any alcohol or drug abuse patient.[facility] DaytonIn the event this information is protected by the Federal Confidentiality of Alcohol and Drug Abuse Patient Records regulations: The Federal rules restrict any use of the information to criminally investigate or prosecute any alcohol or drug abuse patient.[facility] DaytonIn the event this information is protected by the Federal Confidentiality of Alcohol and Drug Abuse Patient Records regulations: The Federal rules restrict any use of the information to criminally investigate or prosecute any alcohol or drug abuse patient.[facility] DaytonIn the event this information is protected by the Federal Confidentiality of Alcohol and Drug Abuse Patient Records regulations: The Federal rules restrict any use of the information to criminally investigate or prosecute any alcohol or drug abuse patient.[facility] DaytonIn the event this information is protected by the Federal Confidentiality of Alcohol and Drug Abuse Patient Records regulations: The Federal rules restrict any use of the information to criminally investigate or prosecute any alcohol or drug abuse patient.[facility] DaytonIn the event this information is protected by the Federal Confidentiality of Alcohol and Drug Abuse Patient Records regulations: The Federal rules restrict any use of the information to criminally investigate or prosecute any alcohol or drug abuse patient.[facility] DaytonIn the event this information is protected by the Federal Confidentiality of Alcohol and Drug Abuse Patient Records regulations: The Federal rules restrict any use of the information to criminally investigate or prosecute any alcohol or drug abuse patient.[facility] DaytonIn the event this information is protected by the Federal Confidentiality of Alcohol and Drug Abuse Patient Records regulations: The Federal rules restrict any use of the information to criminally investigate or prosecute any alcohol or drug abuse patient.[facility] DaytonIn the event this information is protected by the Federal Confidentiality of Alcohol and Drug Abuse Patient Records regulations: The Federal rules restrict any use of the information to criminally investigate or prosecute any alcohol or drug abuse patient.[facility] DaytonIn the event this information is protected by the Federal Confidentiality of Alcohol and Drug Abuse Patient Records regulations: The Federal rules restrict any use of the information to criminally investigate or prosecute any alcohol or drug abuse patient.[facility] DaytonIn the event this information is protected by the Federal Confidentiality of Alcohol and Drug Abuse Patient Records regulations: The Federal rules restrict any use of the information to criminally investigate or prosecute any alcohol or drug abuse patient.[facility] DaytonIn the event this information is protected by the Federal Confidentiality of Alcohol and Drug Abuse Patient Records regulations: The Federal rules restrict any use of the information to criminally investigate or prosecute any alcohol or drug abuse patient.[facility] DaytonIn the event this information is protected by the Federal Confidentiality of Alcohol and Drug Abuse Patient Records regulations: The Federal rules restrict any use of the information to criminally investigate or prosecute any alcohol or drug abuse patient.[facility] DaytonIn the event this information is protected by the Federal Confidentiality of Alcohol and Drug Abuse Patient Records regulations: The Federal rules restrict any use of the information to criminally investigate or prosecute any alcohol or drug abuse patient.[facility] DaytonIn the event this information is protected by the Federal Confidentiality of Alcohol and Drug Abuse Patient Records regulations: The Federal rules restrict any use of the information to criminally investigate or prosecute any alcohol or drug abuse patient.[facility] DaytonIn the event this information is protected by the Federal Confidentiality of Alcohol and Drug Abuse Patient Records regulations: The Federal rules restrict any use of the information to criminally investigate or prosecute any alcohol or drug abuse patient.[facility] DaytonIn the event this information is protected by the Federal Confidentiality of Alcohol and Drug Abuse Patient Records regulations: The Federal rules restrict any use of the information to criminally investigate or prosecute any alcohol or drug abuse patient.[facility] DaytonIn the event this information is protected by the Federal Confidentiality of Alcohol and Drug Abuse Patient Records regulations: The Federal rules restrict any use of the information to criminally investigate or prosecute any alcohol or drug abuse patient.[facility] DaytonIn the event this information is protected by the Federal Confidentiality of Alcohol and Drug Abuse Patient Records regulations: The Federal rules restrict any use of the information to criminally investigate or prosecute any alcohol or drug abuse patient.[facility] DaytonIn the event this information is protected by the Federal Confidentiality of Alcohol and Drug Abuse Patient Records regulations: The Federal rules restrict any use of the information to criminally investigate or prosecute any alcohol or drug abuse patient.[facility] DaytonIn the event this information is protected by the Federal Confidentiality of Alcohol and Drug Abuse Patient Records regulations: The Federal rules restrict any use of the information to criminally investigate or prosecute any alcohol or drug abuse patient.[facility] DaytonIn the event this information is protected by the Federal Confidentiality of Alcohol and Drug Abuse Patient Records regulations: The Federal rules restrict any use of the information to criminally investigate or prosecute any alcohol or drug abuse patient.[facility] DaytonIn the event this information is protected by the Federal Confidentiality of Alcohol and Drug Abuse Patient Records regulations: The Federal rules restrict any use of the information to criminally investigate or prosecute any alcohol or drug abuse patient.[facility] DaytonIn the event this information is protected by the Federal Confidentiality of Alcohol and Drug Abuse Patient Records regulations: The Federal rules restrict any use of the information to criminally investigate or prosecute any alcohol or drug abuse patient.[facility] DaytonIn the event this information is protected by the Federal Confidentiality of Alcohol and Drug Abuse Patient Records regulations: The Federal rules restrict any use of the information to criminally investigate or prosecute any alcohol or drug abuse patient.[facility] DaytonIn the event this information is protected by the Federal Confidentiality of Alcohol and Drug Abuse Patient Records regulations: The Federal rules restrict any use of the information to criminally investigate or prosecute any alcohol or drug abuse patient.[facility] DaytonIn the event this information is protected by the Federal Confidentiality of Alcohol and Drug Abuse Patient Records regulations: The Federal rules restrict any use of the information to criminally investigate or prosecute any alcohol or drug abuse patient.[facility] DaytonIn the event this information is protected by the Federal Confidentiality of Alcohol and Drug Abuse Patient Records regulations: The Federal rules restrict any use of the information to criminally investigate or prosecute any alcohol or drug abuse patient.[facility] DaytonIn the event this information is protected by the Federal Confidentiality of Alcohol and Drug Abuse Patient Records regulations: The Federal rules restrict any use of the information to criminally investigate or prosecute any alcohol or drug abuse patient.[facility] DaytonIn the event this information is protected by the Federal Confidentiality of Alcohol and Drug Abuse Patient Records regulations: The Federal rules restrict any use of the information to criminally investigate or prosecute any alcohol or drug abuse patient.[facility] DaytonIn the event this information is protected by the Federal Confidentiality of Alcohol and Drug Abuse Patient Records regulations: The Federal rules restrict any use of the information to criminally investigate or prosecute any alcohol or drug abuse patient.[facility] DaytonIn the event this information is protected by the Federal Confidentiality of Alcohol and Drug Abuse Patient Records regulations: The Federal rules restrict any use of the information to criminally investigate or prosecute any alcohol or drug abuse patient.[facility] DaytonIn the event this information is protected by the Federal Confidentiality of Alcohol and Drug Abuse Patient Records regulations: The Federal rules restrict any use of the information to criminally investigate or prosecute any alcohol or drug abuse patient.[facility] DaytonIn the event this information is protected by the Federal Confidentiality of Alcohol and Drug Abuse Patient Records regulations: The Federal rules restrict any use of the information to criminally investigate or prosecute any alcohol or drug abuse patient.[facility] DaytonIn the event this information is protected by the Federal Confidentiality of Alcohol and Drug Abuse Patient Records regulations: The Federal rules restrict any use of the information to criminally investigate or prosecute any alcohol or drug abuse patient.[facility] DaytonIn the event this information is protected by the Federal Confidentiality of Alcohol and Drug Abuse Patient Records regulations: The Federal rules restrict any use of the information to criminally investigate or prosecute any alcohol or drug abuse patient.[facility] DaytonIn the event this information is protected by the Federal Confidentiality of Alcohol and Drug Abuse Patient Records regulations: The Federal rules restrict any use of the information to criminally investigate or prosecute any alcohol or drug abuse patient.[facility] DaytonIn the event this information is protected by the Federal Confidentiality of Alcohol and Drug Abuse Patient Records regulations: The Federal rules restrict any use of the information to criminally investigate or prosecute any alcohol or drug abuse patient.[facility] DaytonIn the event this information is protected by the Federal Confidentiality of Alcohol and Drug Abuse Patient Records regulations: The Federal rules restrict any use of the information to criminally investigate or prosecute any alcohol or drug abuse patient.[facility] DaytonIn the event this information is protected by the Federal Confidentiality of Alcohol and Drug Abuse Patient Records regulations: The Federal rules restrict any use of the information to criminally investigate or prosecute any alcohol or drug abuse patient.[facility] DaytonIn the event this information is protected by the Federal Confidentiality of Alcohol and Drug Abuse Patient Records regulations: The Federal rules restrict any use of the information to criminally investigate or prosecute any alcohol or drug abuse patient.[facility] DaytonIn the event this information is protected by the Federal Confidentiality of Alcohol and Drug Abuse Patient Records regulations: The Federal rules restrict any use of the information to criminally investigate or prosecute any alcohol or drug abuse patient.[facility] DaytonIn the event this information is protected by the Federal Confidentiality of Alcohol and Drug Abuse Patient Records regulations: The Federal rules restrict any use of the information to criminally investigate or prosecute any alcohol or drug abuse patient.[facility] DaytonIn the event this information is protected by the Federal Confidentiality of Alcohol and Drug Abuse Patient Records regulations: The Federal rules restrict any use of the information to criminally investigate or prosecute any alcohol or drug abuse patient.[facility] DaytonIn the event this information is protected by the Federal Confidentiality of Alcohol and Drug Abuse Patient Records regulations: The Federal rules restrict any use of the information to criminally investigate or prosecute any alcohol or drug abuse patient.[facility] DaytonIn the event this information is protected by the Federal Confidentiality of Alcohol and Drug Abuse Patient Records regulations: The Federal rules restrict any use of the information to criminally investigate or prosecute any alcohol or drug abuse patient.[facility] DaytonIn the event this information is protected by the Federal Confidentiality of Alcohol and Drug Abuse Patient Records regulations: The Federal rules restrict any use of the information to criminally investigate or prosecute any alcohol or drug abuse patient.[facility] DaytonIn the event this information is protected by the Federal Confidentiality of Alcohol and Drug Abuse Patient Records regulations: The Federal rules restrict any use of the information to criminally investigate or prosecute any alcohol or drug abuse patient.[facility] DaytonIn the event this information is protected by the Federal Confidentiality of Alcohol and Drug Abuse Patient Records regulations: The Federal rules restrict any use of the information to criminally investigate or prosecute any alcohol or drug abuse patient.[facility] DaytonIn the event this information is protected by the Federal Confidentiality of Alcohol and Drug Abuse Patient Records regulations: The Federal rules restrict any use of the information to criminally investigate or prosecute any alcohol or drug abuse patient.[facility] DaytonIn the event this information is protected by the Federal Confidentiality of Alcohol and Drug Abuse Patient Records regulations: The Federal rules restrict any use of the information to criminally investigate or prosecute any alcohol or drug abuse patient.[facility] DaytonIn the event this information is protected by the Federal Confidentiality of Alcohol and Drug Abuse Patient Records regulations: The Federal rules restrict any use of the information to criminally investigate or prosecute any alcohol or drug abuse patient.[facility] DaytonIn the event this information is protected by the Federal Confidentiality of Alcohol and Drug Abuse Patient Records regulations: The Federal rules restrict any use of the information to criminally investigate or prosecute any alcohol or drug abuse patient.[facility] DaytonIn the event this information is protected by the Federal Confidentiality of Alcohol and Drug Abuse Patient Records regulations: The Federal rules restrict any use of the information to criminally investigate or prosecute any alcohol or drug abuse patient.[facility] DaytonIn the event this information is protected by the Federal Confidentiality of Alcohol and Drug Abuse Patient Records regulations: The Federal rules restrict any use of the information to criminally investigate or prosecute any alcohol or drug abuse patient.[facility] DaytonIn the event this information is protected by the Federal Confidentiality of Alcohol and Drug Abuse Patient Records regulations: The Federal rules restrict any use of the information to criminally investigate or prosecute any alcohol or drug abuse patient.[facility] DaytonIn the event this information is protected by the Federal Confidentiality of Alcohol and Drug Abuse Patient Records regulations: The Federal rules restrict any use of the information to criminally investigate or prosecute any alcohol or drug abuse patient.[facility] DaytonIn the event this information is protected by the Federal Confidentiality of Alcohol and Drug Abuse Patient Records regulations: The Federal rules restrict any use of the information to criminally investigate or prosecute any alcohol or drug abuse patient.[facility] DaytonIn the event this information is protected by the Federal Confidentiality of Alcohol and Drug Abuse Patient Records regulations: The Federal rules restrict any use of the information to criminally investigate or prosecute any alcohol or drug abuse patient.[facility] DaytonIn the event this information is protected by the Federal Confidentiality of Alcohol and Drug Abuse Patient Records regulations: The Federal rules restrict any use of the information to criminally investigate or prosecute any alcohol or drug abuse patient.[facility] DaytonIn the event this information is protected by the Federal Confidentiality of Alcohol and Drug Abuse Patient Records regulations: The Federal rules restrict any use of the information to criminally investigate or prosecute any alcohol or drug abuse patient.[facility] DaytonIn the event this information is protected by the Federal Confidentiality of Alcohol and Drug Abuse Patient Records regulations: The Federal rules restrict any use of the information to criminally investigate or prosecute any alcohol or drug abuse patient.[facility] DaytonIn the event this information is protected by the Federal Confidentiality of Alcohol and Drug Abuse Patient Records regulations: The Federal rules restrict any use of the information to criminally investigate or prosecute any alcohol or drug abuse patient.[facility] DaytonIn the event this information is protected by the Federal Confidentiality of Alcohol and Drug Abuse Patient Records regulations: The Federal rules restrict any use of the information to criminally investigate or prosecute any alcohol or drug abuse patient.[facility] DaytonIn the event this information is protected by the Federal Confidentiality of Alcohol and Drug Abuse Patient Records regulations: The Federal rules restrict any use of the information to criminally investigate or prosecute any alcohol or drug abuse patient.[facility] DaytonIn the event this information is protected by the Federal Confidentiality of Alcohol and Drug Abuse Patient Records regulations: The Federal rules restrict any use of the information to criminally investigate or prosecute any alcohol or drug abuse patient.[facility] DaytonIn the event this information is protected by the Federal Confidentiality of Alcohol and Drug Abuse Patient Records regulations: The Federal rules restrict any use of the information to criminally investigate or prosecute any alcohol or drug abuse patient.[facility] DaytonIn the event this information is protected by the Federal Confidentiality of Alcohol and Drug Abuse Patient Records regulations: The Federal rules restrict any use of the information to criminally investigate or prosecute any alcohol or drug abuse patient.[facility] DaytonIn the event this information is protected by the Federal Confidentiality of Alcohol and Drug Abuse Patient Records regulations: The Federal rules restrict any use of the information to criminally investigate or prosecute any alcohol or drug abuse patient.[facility] Reason for Visit (unrecogniz ed section and content) Reason Comments Physical Therapy Specialty Diagnoses / Procedures Referred By Gustavo salazar Referred To Contact [facility] Diagnoses Follow-up examination after colorectal surgery Procedures CONSULT TO PHYSICAL THERAPY PHYSICAL THERAPY EVALUATION HIGH COMPLEX [address] [place] [address] [place] [address] [facility] [address] [place] [address] Referral ID Status Reason Start Date Expiration Date Visits Requested Visits Authorized [id number] Authorized Auto-Generat ed Referral 01/04/2022 11/05/2022 30 30 Reason Comments Refill Request [email or web address] Reason Comments Established Patient Follow-Up Reason Comments Post Op Reason Comments Established Patient Reason Comments Appointment for script refill Reason Comments Gastroparesis Reason Comments 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 Health 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 - Other Reason Comments Medication 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 PA [...] ESOPHAGUS DOUBLE CONTRAST [place] [address] Xr Imaging Referral ID Status Reason Start Date Expiration Date V isits Requested Visits Authorized [id number] Closed Auto-Generate d Referral 11/17/2022 12/17/2023 1 [...] ABD & [place] W/[place] [address] [place] [address] Ct Imaging Referral ID Status Reason Start Date Expiration Date V isits Requested Visits Authorized [id number] Closed Auto-Generate d Referral 07/28/2022 11/05/2022 2 2 Reason Comments Urinary Retention Reason Comments Abdominal Pain Reason Comments Med Change Request Care Teams (unrecognized sec tion and content) Team Status: Active Member Role Status Dates Shannon Gómez DO Primary Care Provider Active Team Status: Inactive Member Role Status Dates Shannon Gómez DO Primary Care Provider Active Niecy Duron PA-C Attending Provider Active Sodder Relationship 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 [address] [place] [id number] PCP - General Family Practice 10/14/20 Sodder Relationship 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 [address] [place] [address] PCP - General Family Practice 10/14/20 Sodder Relationship 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 [address] [place] [address] PCP - General Family Practice 10/14/20 Sodder Relationship 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 [address] [place] [address] PCP - General Family Practice 10/14/20 Sodder Relationship 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 [address] [place] [address] PCP - General Family Practice 10/14/20 Sodder Relationship 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 [address] [place] [address] PCP - General Family Practice 10/14/20 Gwendolyn Stroud [address] [place] [address] Family Practice 03/14/22 Sodder Relationship 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 [address] [place] [address] PCP - General Family Practice 10/14/20 Gwendolyn Stroud [address] [place] [address] Family Practice 03/14/22 Sodder Relationship Specialty Start Date End Date Eliceo Gómez Reno [address] [place] [address] PCP - General Family Practice 10/14/20 Gwendolyn Stroud [address] [place] [address] Family Practice 03/14/22 Sodder Relationship Specialty Start Date End Date Dalia Eliceo Lugo JrReno [address] [place] [address] PCP - General Family Practice 10/14/20 Gwendolyn Stroud [address] [place] [address] Family Practice 03/14/22 Sodder Relationship Specialty Start Date End Date Stephonleigha Eliceo Lugo [address] [place] [address] PCP - General Family Practice 10/14/20 Gwendolyn Stroud [address] [place] [address] Family Practice 03/14/22 Sodder Relationship Specialty Start Date End Date Stephonleigha Eliceo Lugo [address] [place] [address] PCP - General Family Practice 10/14/20 Gwendolyn Stroud [address] [place] [address] Family Practice 03/14/22 Sodder Relationship Specialty Start Date End Date Dalia Eliceo Lugo [address] [place] [address] PCP - General Family Practice 10/14/[facility] Sodder Relationship Specialty Start Date End Date StephonEliceo ahuja Parish [address] [place] [address] PCP - General Family Practice 10/14/20 Gwendolyn Stroud, CHILD DAY CARE PROVIDER Family Practice 03/14/22 Sodder Relationship 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 [address] [place] [address] PCP - General Family Practice 10/14/20 Gwendolyn Stroud, CHILD DAY CARE PROVIDER Family Practice 03/14/22 Sodder Relationship 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 [address] [place] [address] PCP - General Family Practice 10/14/20 Gwendolyn Stroud CHILD DAY CARE PROVIDER Family Practice 03/14/22 Sodder Relationship 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 [address] [place] [address] PCP - General Family Medicine 10/14/20 Gwendolyn Stroud, CHILD DAY CARE PROVIDER Family Medicine 03/14/22 Sodder Relationship 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 [address] [place] [address] PCP - General Family Medicine 10/14/20 Gwendolyn Stroud, CHILD DAY CARE PROVIDER Family Medicine 03/14/22 Sodder Relationship 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 [address] [place] [address] PCP - General Family Medicine 10/14/20 Gwendolyn Stroud, CHILD DAY CARE PROVIDER Family Medicine 03/14/22 Sodder Relationship 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 [address] [place] [address] PCP - General Family Medicine 10/14/20 Gwendolyn Stroud, CHILD DAY CARE PROVIDER Family Medicine 03/14/22 Team Status: Inactive Member Role Status Henrietta Gómez DO Primary Care Provider Active Annette Harris MD Attending Provider Active Sodder Relationship 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 [address] [place] [address] PCP - General Family Medicine 10/14/20 Gwendolyn Stroud, CHILD DAY CARE PROVIDER [address] [place] [address] Family Medicine 03/14/22 Sodder Relationship 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 [address] [place] [address] PCP - General Family Medicine 10/14/20 Gwendolyn Stroud, KWESI [address] [place] [address] Family Medicine 03/14/22 Sodder Relationship 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 [address] [place] [address] PCP - General Family Medicine 10/14/20 Gwendolyn Stroud, CHILD DAY CARE PROVIDER [address] [place] [address] Family Medicine 03/14/22 Sodder Relationship Specialty Start Date End Date Dalia Eliceo Lugo Jr. [address] [place] [address] PCP - General Family Medicine 10/14/20 Gwendolyn Stroud CNP [address] [place] [address] Family Medicine 03/14/22 Sodder Relationship 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 [address] [place] [address] PCP - General Family Medicine 10/14/20 Gwendolyn Stroud CNP [address] [place] [address] Family Medicine 03/14/22 Sodder Relationship 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 [address] [place] [address] PCP - General Family Medicine 10/14/20 Gwendolyn Stroud CNP [address] [place] [address] Family Medicine 03/14/22 Sodder Relationship 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 [address] [place] [address] PCP - General Family Medicine 10/14/20 Gwendolyn Stroud CNP [address] [place] [address] Family Medicine 03/14/22 Sodder Relationship 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 [address] [place] [address] PCP - General Family Medicine 10/14/20 Gwendolyn Stroud CNP [address] [place] [address] Family Medicine 03/14/22 Sodder Relationship 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 [address] [place] [address] PCP - General Family Medicine 10/14/20 Maximus KWESI Snow [address] [place] [address] Family Medicine 03/14/22 Sodder Relationship 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 [address] [place] [address] PCP - General Family Medicine 10/14/20 Gwendolyn Stroud CNP [address] [place] [address] Family Medicine 03/14/22 Sodder Relationship 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 [address] [place] [address] PCP - General Family Medicine 10/14/20 Gwendolyn Stroud CNP [address] [place] [address] Family Medicine 03/14/22 Team Status: Inactive Member Role Status Dates Shannon Gómez , Primary Care Provider Active Annette Cartagena MD Attending Provider Active Sodder Relationship 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 [address] [place] [address] PCP - General Family Medicine 10/14/20 Gwendolyn Stroud CNP [address] [place] [address] Family Medicine 03/14/22 Sodder Relationship 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 [address] [place] [address] PCP - General Family Medicine 10/14/20 Gwendolyn Stroud CNP [address] [place] [address] Family Medicine 03/14/22 Sodder Relationship 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 [address] [place] [address] PCP - General Family Medicine 10/14/20 Gwendolyn Stroud CNP [address] [place] [address] Family Medicine 03/14/22 Sodder Relationship 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 [address] [place] [address] PCP - General Family Medicine 10/14/20 Gwendolyn Stroud CNP [address] [place] [address] Family Medicine 03/14/22 Sodder Relationship 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 [address] [place] [address] PCP - General Family Medicine 10/14/20 Gwendolyn Stroud CNP [address] [place] [address] Family Medicine 03/14/22 Sodder Relationship 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 [address] [place] [address] PCP - General Family Medicine 10/14/20 Gwendolyn Stroud CNP [address] [place] [address] Family Medicine 03/14/22 Sodder Relationship 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 [address] [place] [address] PCP - General Family Medicine 10/14/20 Gwendolyn Stroud CNP [address] [place] [address] Family Medicine 03/14/22 Sodder Relationship 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 [address] [place] [address] PCP - General Family Medicine 10/14/20 Gwendolyn Stroud CNP [address] [place] [address] Family Medicine 03/14/22 Team Status: Inactive Member Role Status Henrietta Gómez , DO Primary Care Provider Active Anibal Valle , DO Emergency Provider Active Sodder Relationship 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 [address] [place] [address] PCP - General Family Medicine 10/14/20 Gwendolyn Stroud CNP [address] [place] [address] Family Medicine 03/14/22 Sodder Relationship 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 [address] [place] [address] PCP - General Family Medicine 10/14/20 Gwendolyn Stroud CNP [address] [place] [address] Family Medicine 03/14/22 Sodder Relationship 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 [address] [place] [address] PCP - General Family Medicine 10/14/20 Gwendolyn Stroud CNP [address] [place] [address] Family [facility] 03/14/22 Sodder Relationship 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, DO [address] [place] [address] PCP - General Family Medicine 10/14/20 Gwendolyn Stroud CNP [address] [place] [address] Family [facility] 03/14/22 Sodder Relationship 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, DO [address] [place] [address] PCP - General Family Medicine 10/14/20 Gwendolyn Stroud, KWESI [address] [place] [address] Family [facility] 5/9/22 Sodder Relationship 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, DO [address] [place] [address], [address] [id number] PCP - General Family Medicine 12/11/19 Team Status: Inactive Member Role Status Dates Shannon Parish Gómez DO Primary Care Provider Active Start: [...] BE BASED ON THE PRIMARY CLINICAL RECORDS. [employer] [facility]. provides no warranty or guarantee of the accuracy or completeness of information in this document.
--- NOTE | 2023-12-19 06:57 | MR_ITS ---
[facility] [place] [id number] Patient Name: ELSIE FUENTES MRN: [facility]:[id number] date: 1970 Sex: F Assigned Patient Location: MRI Current Patient Location: MRI Accession/Order Number: [id number] Exam Date: 12/19/2023 07:03 Report Date: 12/19/2023 07:59 At the request of: KEDAR KASPER Procedure: MR cervical spine wo con MR cervical spine wo con, 12/19/2023 7:03 AM EST INDICATION: Cervical Stenosis COMPARISON: Prior MRI of the cervical spine dated 08/06/2018 TECHNIQUE: Multiplanar, multisequential MRI images of cervical spine were obtained with without contrast. FINDINGS: The sensitivity of the study has been decreased due to motion artifact as well as magnetic susceptibility artifact at the level of C6-C7. There is status post ACDF at the level of C6-C7. Please note that MRI is not sensitive for evaluation of hardware. There is loss of normal physiologic cervical lordosis. The vertebral heights are relatively preserved. The cervicomedullary junction is unremarkable. No definite signal abnormality within the spinal cord is noted. There are mild disc osteophyte complex associated with uncovertebral joint arthrosis from C3 to T1. No significant neuroforaminal narrowing or canal stenosis at the level of C2-C3 is noted. At the level of C3-C4, there is mild right and moderate left neuroforaminal narrowing and no canal stenosis. At the level of C4-C5, there is moderate bilateral neuroforaminal narrowing and no canal stenosis. At the level of C5-C6, there is moderate bilateral neuroforaminal narrowing and no canal stenosis. At the level of C6-C7, there is moderate right and mild left neuroforaminal narrowing and no canal stenosis. Level of C7-T1 is unremarkable. No definite muscular or ligamentous injury is noted. MR/MR cervical spine wo con IMPRESSION: No significant interval change in mild degenerative changes of the cervical spine. Electronically authenticated by: ANIL JARRELL Date: 12/19/2023 07:59
== END 2023-12-19 06:51 | disposition home or self-care (01) ==
LOC: MRI 06:50
PROVIDERS: PCP Family Medicine; Visit Provider Anesthesiology
DX: M48.02 Spinal stenosis, cervical region (principal); M50.30 Other cervical disc degeneration, unspecified cervical region
CPT/HCPCS: 72141

== ENCOUNTER 2023-12-25 13:31 | Outpatient (OUT) | payer OTHER, SELFPAY ==
--- NOTE | 2023-12-25 14:40 | P.CN_ITS ---
Consult Note: HPI Data of Consult Patient: known to practice within the last 3 years Consult date: 12/25/23 Requesting Physician: Ace Ahumada MD Primary Care Provider: Isatu CASTRO Consult Narrative Reason for consult: neck and bilateral arm pain, low back pain Narrative: 53yof who presents for assessment. worsening pain through neck with radiation into bilateral arms. also axial low back pain that is worsened with standing and walking. imaging reviewed, which is significant for multilevel stenosis in cervical spine, including c4-5, c5-6, c6-7. lumbar xr shows multilevel spondylosis and facet arthropathy. she has continued in physical therapy home exercises for >6 weeks, with minimal benefit. uses tylenol and celebrex for >6 weeks, without much benefit. denies adverse med side effects. cc:: CC: Ace Ahumada MD Review of Systems ROS Status of ROS 10 or more systems reviewed and unremark able except as noted in history and below [facility] Medical History Panic attacks ?F41.0 - Panic disorder [episodic paroxysmal anxiety] (ICD-10) OCD (obsessive compulsive disorder) ?F42.9 - Obsessive-compulsive disorder, unspecified (ICD-10) COVID-19 ?U07.1 - COVID-19 (ICD-10) Migraine ?G43.909 - Migraine, unspecified, not intractable, without status migrainosus (ICD-10) Gastritis ?K29.70 - Gastritis, unspecified, without bleeding (ICD-10) GERD (gastroesophageal reflux disease) ?K21.9 - Gastro-esophageal reflux disease without esophagitis (ICD-10) Peroneal tendinitis ?M76.70 - Peroneal tendinitis, unspecified leg (ICD-10) Posterior tibial tendon dysfunction ?M76.829 - Posterior tibial tendinitis, unspecified leg (ICD-10) Painful orthopaedic hardware ?T84.84XA - Pain due to internal orthopedic prosthetic devices, implants and grafts, initial encounter (ICD-10) Cellulitis ?L03.90 - Cellulitis, unspecified (ICD-10) Post op infection ?T81.40XA - Infection following a procedure, unspecified, initial encounter (ICD-10) Restless leg syndrome ?G25.81 - Restless legs syndrome (ICD-10) Tibialis anterior tendon tear, traumatic ?S86.219A - Strain of muscle(s) and tendon(s) of anterior muscle group at lower leg level, unspecified leg, initial encounter (ICD-10) Osteoarthritis ?M19.90 - Unspecified osteoarthritis, unspecified site (ICD-10) Back pain ?M54.9 - Dorsalgia, unspecified (ICD-10) Sleep disorder ?G47.9 - Sleep disorder, unspecified (ICD-10) PTSD (post-traumatic stress disorder) ?F43.10 - Post-traumatic stress disorder, unspecified (ICD-10) Depression ?F32.A - Depression, unspecified (ICD-10) Anxiety ?F41.9 - Anxiety disorder, unspecified (ICD-10) Sleep apnea ?G47.30 - Sleep apnea, unspecified (ICD-10) Asthma ?J45.909 - Unspecified asthma, uncomplicated (ICD-10) Constipation ?K59.00 - Constipation, unspecified (ICD-10) High cholesterol ?E78.00 - Pure hypercholesterolemia, unspecified (ICD-10) Hypertension ?I10 - Essential (primary) hypertension (ICD-10) Female rectocele with enterocele ?N81.6 - Rectocele (ICD-10) ?K46.9 - Unspecified abdominal hernia without obstruction or gangrene (ICD- 10) 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 - Other specified functional intestinal disorders (ICD-10) Surgical History H/O tooth extraction ?K08.409 - Partial loss of teeth, unspecified cause, unspecified class (ICD- 10) H/O foot surgery (05/12/23) ?Z98.890 - Other specified postprocedural states (ICD-10) History of appendectomy (1987) ?Z90.49 - Acquired absence of other specified parts of digestive tract (ICD- 10) History of colonoscopy ?Z98.890 - Other specified postprocedural states (ICD-10) History of colectomy (03/2022) ?Z90.49 - Acquired absence of other specified parts of digestive tract (ICD- 10) History of tonsillectomy and adenoidectomy ?Z90.89 - Acquired absence of other organs (ICD-10) History of hysterectomy (2014) ?Z90.710 - Acquired absence of both cervix and uterus (ICD-10) History of arthroplasty of right ankle ?Z98.890 - Other specified postprocedural states (ICD-10) History of repair of rotator cuff ?Z98.890 - Other specified postprocedural states (ICD-10) S/P ankle ligament repair (2020) ?Z98.890 - Other specified postprocedural states (ICD-10) Family History Other Family history of Alzheimer's disease Family history of coronary artery disease Family history of heart disease Family history of hypertension Social History Within the past year, how often did you have a drink containing alcohol: never Score interpretation: A score less than 3 is consistent with normal alcohol consumption. Smoking status: Never smoker Non-prescribed substance use: denies use Previous occupational history: unemployed Highest level of school completed/degree received: some college, no degree Little interest or pleasure in doing things: not at all Feeling down, depressed, or hopeless: not at all Feel stressed/tense/nervous/anxious/difficulty sleeping: only a little Due to disability, difficulty making decisions: No Do you think of yourself as: straight/heterosexual Gender Identity: female Meds Home Medications and Allergies Home Medications Medication Instructions Recorded Confirmed Type atenolol 25 mg tablet 25 mg PO Q24H 05/04/23 12/11/23 History dexlansoprazole 60 mg 60 mg PO QAM 05/04/23 12/11/23 History capsule,biphase delayed release fremanezumab-vfrm 225 mg/1.5 mL 125 mg subcut .[id number] 05/04/23 12/11/23 History subcutaneous auto-injector (Ajovy) ropinirole 1 mg tablet 1 mg PO QAM 05/04/23 12/11/23 History ropinirole 2 mg tablet 2 mg PO QPM 05/04/23 12/11/23 History aripiprazole 9.75 mg/1.3 mL 300 mg IM .monthly 10/29/23 12/11/23 History intramuscular solution clonidine 0.1 mg/24 hr weekly 1 patch topical .weekly 10/29/23 11/03/23 History transdermal patch daridorexant 25 mg tablet (Quviviq) 25 mg PO QPM 10/29/23 12/11/23 History fluticasone fur. 100 mcg-umeclid 1 inh inhalation Q24H 11/03/23 12/11/23 History 62.5 mcg-vilant 25 mcg inhalat.powder (Trelegy Ellipta) lamotrigine 25 mg disintegrating 25 mg PO DAILY 11/03/23 12/11/23 History tablet ondansetron 4 mg disintegrating 4 mg PO Q8H PRN nausea and 11/13/23 Rx tablet vomiting 5 days #15 tabs celecoxib 200 mg capsule (Celebrex) 200 mg PO BID 12/11/23 12/11/23 History lisdexamfetamine 30 mg capsule 30 mg PO DAILY 12/11/23 12/11/23 History (Vyvanse) acetaminophen 300 mg-codeine 30 mg 1 tab PO TID PRN pain #90 tabs 12/25/23 Rx tablet Allergies Allergy/AdvReac Type Severity Reaction Status Date / Time risperidone [From Risperdal] AdvReac Mild breast Verified 11/13/23 07:50 nipples leak Exam Narrative Exam Narrative: Psych-alert and oriented x 3.? Attentive and appropriate, constitutionally normal, displays normal mood and affect per situation.? There are no obvious deficits in memory, reasoning, or intellect.? Skin-no obvious rashes, bruising, or erythema noted to the patient's area of pain.? Extremities-upper extremities are warm with minimal edema and palpable pulses. Cervical- tenderness to palpation noted in the cervical spine and paraspinal musculature.? Pain is elicited with flexion, extension, and lateral rotation of the cervical spine.? Range of motion is diminished due to pain. Facet loading maneuvers are positive. Strength-unremarkable and within normal limits with the exception to the bilateral biceps, triceps. Sensory-no notable sensory deficits in the bilateral upper extremities to touch or pinprick with the exception to decreased sensation to the bilateral C5, 6, 7 dermatomal distribution.? Coordination remains intact.? Gait remains non-antalgic. Assessment and Plan Assessment and Plan (1) Lumbar spondylosis: (2) Cervical post-laminectomy syndrome: (3) Cervical stenosis of spinal canal: Plan 53yof who presents for assessment. failed conservative measures, as noted. imaging reviewed, as noted. given symptoms and imaging, prudent to attempt bilateral c5-6 tfesi under fluoroscopic guidance. she is in agreement. meds reviewed. will trial t#3 tid prn. pdmp reviewed. uds obtained. follow up after procedure.
== END 2023-12-25 13:32 | disposition home or self-care (01) ==
PROVIDERS: PCP Family Medicine; Visit Provider Anesthesiology
DX: M47.816 Spondylosis without myelopathy or radiculopathy, lumbar region (principal); M96.1 Postlaminectomy syndrome, not elsewhere classified; M48.02 Spinal stenosis, cervical region
CPT/HCPCS: G0463

== ENCOUNTER 2024-01-15 06:29 | Day surgery (SDC) | payer OTHER, SELFPAY ==
--- OUTSIDE RECORDS SUMMARY | 2024-01-15 06:34 | XMS_ITS | CCD ---
Author Name Unknown Address [address] [facility] [address] [place] [address] Organization [facility] Care Team Providers Care Strategic Alliances Manager Name Role Phone PARISH GÓMEZ Primary Care Unavailable Eliceo Gómez Jr. Primary Care Provider Gwendolyn Stroud Unavailable Maximus OROSCO, Gwendolyn Unavailable Annette Harris Unavailable Tita Daugherty Unavailable Erica Kingston Unavailable Eliceo Gómez Unavailable Unavailable Unavailable Allison Arita Unavailable Eliceo Gómez Jr. Primary Care Provider Maximus OROSCO, Gwendolyn Unavailable Eliceo Gómez Unavailable DO Shannon Gómez Primary Care Provider [phone] MD Annette Harris Attending Provider Eliceo Gómez Jr. Primary Care Provider Maximus OROSCO Gwendolyn Unavailable [phone] Annette Cartagena Unavailable MD Annette Cartagena [...] KAFTAN, DR Isatu LUGO Primary Care Unavailable SHRELYN HOLLINGSWORTH Consulting Unavailable HIGHLANDER, SADE D Attending Unavailable HIGHLANDER, PETER D Admitting Unavailable WEST, DR NICKI Gale Consulting [...] HIGHLANDER, SADE Kenny Attending Unavailable HIGHLANDER, SADE D Admitting Unavailable ZIEBER, DR ZAIDA Ellis Consulting Unavailable HIGHLANDER, SADE Kenny Consulting Unavailable KAFTAN, DR Isatu LUGO Primary Care Unavailable HAY ., DR BAEZA Consulting Unavailable HAY ., DR BAEZA Attending Unavailable HAY ., DR BAEZA Admitting Unavailable HIGHLANDER, SADE Kenny Attending Unavailable HIGHLANDER, SADE Kenny Admitting Unavailable KAFTAN, DR Isatu LUGO Primary Care Unavailable ZIEBER, DR ZAIDA Ellis Consulting Unavailable CHANI, SADE Kenny Consulting Unavailable OLIVERIO, NIECY Attending Unavailable OLIVERIO, NIECY Admitting Unavailable KAFTAN, DR Isatu LUGO Primary Care Unavailable ZIEBER, DR ZAIDA Ellis Consulting Unavailable OLIVERIO, NIECY Consulting Unavailable OLIVERIO, NIECY Admitting Unavailable OLIVERIO, NIECY Attending Unavailable KAFTAN, DR Isatu LUGO Primary Care Unavailable ZIEBER, DR ZAIDA Ellis Consulting Unavailable OLIVERIO, NIECY Consulting Unavailable OLIVERIO, NIECY Admitting Unavailable OLIVERIO, NIECY Attending Unavailable WEST, DR NICKI Gale Consulting Unavailable KAFTAN, DR Isatu LUGO Primary Care Unavailable OLIVERIO, NIECY Consulting Unavailable JENNIFER GARCIA Attending Unavailable HAY ., DR BAEZA Consulting Unavailable JENNIFER GARCIA Admitting Unavailable KAFTAN, DR Isatu LUGO Primary Care Unavailable JENNIFER GARCIA Consulting Unavailable HIGHLANDER, SADE Kenny Consulting Unavailable TANI ., CHASITY Attending Unavailable DALIA, DR Isatu LUGO Primary Care Unavailable TANI ., CHASITY Admitting Unavailable NICKI BUTT Unavailable TANI ., CHASITY Consulting Unavailable LORRI TRIPLETT Unavailable DALIA, DR Isatu LUGO Primary Care Unavailable ELIAS ., DR ELDER Rios Admitting Unavailable ELIAS ., DR ELDER Rios Attending Unavailable ELIAS ., DR ELDER Rios Consulting Unavailable WOODRUFF, DR NICKI Gale Consulting Unavailable SADE WILDE Consulting Unavailable EDUARDO ., NANCY LAMA Consulting Unavailable TORRESBUSDAWNA Consulting Unavailable SADE WILDE Consulting Unavailable SADE WILDE Attending Unavailable SADE WILDE Admitting Unavailable DALIA, DR Isatu LUGO Primary Care Unavailable KALEIGHA, [...] Dr. Dipti Fam Attending Unava arben Gómez Jr., DO, George Robert Primary Care Provi jose eduardo PAULINE CHRISTENSEN Attending Unavailable ELICEO GÓMEZ JR Referring Unavailable ELICEO GÓMEZ JR Primary Care Unavailable Dalia Morales DO, George R Primary Care Provider DO Shannon Gómez Primary Care Provider DO Eagle Vazquez Attending Provider ELICEO GÓMEZ Attending Unavailable EAGLE VAZQUEZ Attending Unavailable DIPTI ACEVEDO Attending Unavailable EAGLE VAZQUEZ Attending Unavailable KAELICEO AHUJA Referring Unavailable KAFTAN, ELICEO R Attending Unavailable KAFTAN, ELICEO R Attending Unavailable KAFTAN, ELICEO R Referring Unavailable LAFFAYEAGLE Attending Unavailable KAJEROMEAN, ELICEO R Referring Unavailable LUBY, RON Rivera Attending Unavailable KAFTAN, ELICEO Ellis Referring Unavailable LAFFAY, EAGLE Chand Referring Unavailable LUBY, RON L Referring Unavailable KAILA, CARMEN Attending Unavailable KAILA, CARMEN Attending Unavailable KAILA, CARMEN Attending Unavailable ANDREW, GIANA Attending Unavailable ANDREW, GIANA Attending Unavailable ANDREW, GIANA Attending Unavailable KAILA, CARMEN Attending Unavailable ANDREW, GIANA Attending Unavailable KAILA, CARMEN Attending Unavailable SWANSON, ANNETTE Attending Unavailable KAILA, CARMEN Attending Unavailable CASTREJON, RADHA Attending Unavailable KAILA, CARMEN Attending Unavailable KAILA, CARMEN Attending Unavailable KAILA, CARMEN Attending Unavailable KAILA, CARMEN Attending Unavailable SWANSON, ANNETTE Attending Unavailable KAILA, CARMEN Attending Unavailable MATTEO QUINONES Attending Unavailable TIMOTEO SIOMARA Referring Unavailable TIMOTEO, SIOMARA Attending Unavailable ENIX, DEB Referring Unavailable ANDREW, GIANA Attending Unavailable LUCÍA, RADHA Attending Unavailable Eagle Vazquez Admitting Unavailable Taylor, Eagle Attending Unavailable Shannon Gómez Primary Care Unavailable Niecy Duron Admitting Unavailable Niecy Duron Attending Unavailable Shannon Gómez Primary Care Unavailable Anibal Valle Attending Unavailable Shannon Gómez Primary Care Unavailable Anibal Valle Admitting Unavailable ELICEO GÓMEZ JR Primary Care Unavail able WINSTON HANNAH Referring Unavailable ELICEO GÓMEZ JR Primary Care Unavail able WINSTON HANNAH Attending Unavailable ELICEO GÓMEZ JR Primary Care Unavail able PAM WANG Attending Unavailable ELICEO GÓMEZ JR Primary Care Unavail able PAM WANG Attending Unavailable PAM WANG Referring Unavailable ELICEO GÓMEZ JR Primary Care Unavail able ELICEO GÓMEZ JR Primary Care Unavail able DORIS ARIAS Attending Unavailable JAIRON LAI Attending Unavailable PAM WANG Referring Unavailable ELICEO GÓMEZ JR Primary Care Unavail able PAM WANG Attending Unavailable ELICEO GÓMEZ JR Primary Care Unavail able ELICEO GÓMEZ JR Primary Care Unavail able NELSY CHÁVEZ Attending Unavailable Brandyn BENSON, Ace Art Attending Unavailable Brandyn BENSON, Ace Art Attending Unavailable RAJIV WILKINSON Attending Unavailable DALIA JENKINS, ELICEO R Primary Care Unavailable CULLEN DAWKINS Referring Unavailable HERNANDEZTOMASA JENKINS, ELICEO R Primary Care Unavailable CULLEN DAWKINS Attending Unavailable CULLEN DAWKINS Referring Unavailable DALIA JENKINS, ELICEO R Primary Care Unavailable CULLEN DAWKINS Attending Unavailable DALIA JENKINS, ELICEO R Referring Unavailable KAJEROMEAN JR, ELICEO R Primary Care Unavailable CULLEN DAWKINS Admitting Unavailable CULLEN DAWKINS Attending Unavailable CULLEN DAWKINS Referring Unavailable STEPHONLEIGHA JENKINS, ELICEO R Primary Care Unavailable Allergies Allergy Classification Reported Allergen(s) Allergy Type Date of Onset Reaction(s) Facility (20 sources) risperiDONE; Translations: [RisperDAL TABS] Drug Allergy 0 Intolerance, Other (See Comments) [facility] (1 source) oxyCODONE Drug Allergy [facility] (1 source) risperiDONE Drug Allergy [facility] (5 sources) POISON LAITH EXTRACT; Translations: [POISON LAITH EXTRACT] Drug Allergy 3 Rash [facility] (1 source) POISON LAITH; Translations: [POISON LAITH] Propensity to adverse reactions to drug (disorder) 2 [facility] Repository (1 source) risperiDONE Drug Allergy 3 [facility] Medications Current Medications Medication [...] 1 tablet by mouth every twelve hours [id number] 200 actuat albuterol 0.09 mg/actuat metered dose [...] on above: inhale 2 puffs by mo ut INTO THE LUNGS every 4 hours if needed alendronic acid 70 mg oral tablet (2 sources) Bisphosphonate Start: take 1 tablet by mouth every week Alendronate (Fosamax) 70 mg Tablet Active 70 MG PO every week June 04, 2023 11:00pm cholecalciferol 0.05 mg oral capsule (20 sources) [...] by mouth once daily. 168 hr cloNIDine 0.97227 mg/hr transdermal system (3 sources) Central alpha-2 Adrenergic Agonist Start: cloNIDine (CATAPRES-TTS) 0.1 mg/[address] 1 patch on the skin once a week. New patch on Monday 0 09/27/2023 Active daridorexant 50 mg tablet (4 sources) take 1 tablet by mouth once daily [...] Start: 06-05-2023 take 1 capsule by mo [facility] once daily Dexlansoprazole (Dexilant) 60 mg [...] 1 puff(s) by inhalation in the morning rvbqwwrszex-mzyqycjje-wdotulua (TRELEGY ELLIPTA) 100-62.5-25 mcg blister with device Indications: Asthma, unspecified asthma severity, unspecified whether complicated, unspecified whether persistent Inhale 1 puff in the morning. 60 each 5 05/31/2022 Active take 1 puff(s) by inhalation once daily ugepnygrbji-ugbhidwzu-mxlijtyu (TRELEGY ELLIPTA) 100-62.5-25 mcg Inhale 1 Puff as instructed once daily. 0 Active take 1 puff(s) by inhalation once daily Trelegy Ellipta 100-62.5-25 MCG/INH 1 pu ff Inhalation Once a day Not-Taking Comment on above: Inhale 1 Puff as ins tructed once daily. 1.5 ml fremanezumab-vfrm 150 mg/ml auto-injector (20 sources) Start: 07-19-2023 fremanezumab-vfrm (AJOVY AUTOINJECTOR) 225 [...] inulin 200 mg / lactobacillus rhamnosus gg [id number] unt oral capsule (1 source) Start: End: take 1 capsule by mouth once daily lactobacillus rhamnosus (CULTURELLE) 10 billion cell -200 mg capsule Take 1 capsule by mouth once daily. 30 capsule 0 06/07/2022 07/07/2022 Active Comment on above: Take 1 capsule by [facility] once daily. iv contrast (will be provided [...] mg lisdexamfetamine dimesylate 30 mg oral capsule (9 sources) Central Nervous System Stimulant Start: 10-20-2023 [...] bedtime. rimegepant 75 mg disintegrating oral tablet (4 sources) Start: 3 rimegepant 75 mg tablet,disintegratin g [...] 0 09/19/2021 Active Start: 11-29-2019 take 1 mg by mouth o nce daily in the morning rOPINIRole (REQUIP) 2 mg tablet Take 1 tablet (2 mg total) by mouth nightly. 1 mg in the morning 0 11/29/2019 Active Start: 06-19-2019 take 2 mg by [...] Start: 03-04-2022 take 4 tablets by mo [facility] once daily at bedtime traZODone (DESYREL) [...] 2018 12:17pm take 2 tablets by mo [facility]h at bedtime traZODone HCl - 100 MG Oral Tablet TAKE 2 TABLETS AT BEDTIME. Quantity: 0 Refills: 0 Ordered: 13-Jun-2023 DO Active [facility] traZODone HCl - 150 MG [...] System Stimulant, Methylxanthine Start: 09-13-20 End: 10-01-20 take 1 tablet by mouth every four [...] appropriate muscle every 28 days. 0 Active ARIPiprazole mon ohydrate (ABILIFY MAINTENA) 300 mg sers injection Inject 300 mg intramuscularly. 0 Active Comment on above: Take 30 mg by mouth once daily. Inject 300 mg intram uscularly. atenolol 25 mg oral tablet (20 sources) [...] once daily. Take 1 tablet by yancy every afternoon. atorvastatin 20 mg oral tablet (20 sources) HMG-CoA Reductase Inhibitor Start: 03-10-20 22 take 1 tablet by mouth once daily atorvastatin (LIPITOR) 20 mg tablet Take 20 mg by mouth once daily. 0 03/10/2022 Active Comment on above: Take 20 mg by mouth once daily. betamethasone 0.5 mg/ml topical cream (2 sources) Corticosteroid End: 12-20-19 24 betamethasone dipropionate 0.05 % cream Apply 1 Application topically in the morning and 1 Application before bedtime. 0 12/20/2023 Discontinued (Therapy completed) brexpiprazole 3 mg oral tablet (5 sources) Atypical Antipsychotic Start: 02-18-20 20 End: 06-05-20 23 take 1 tablet by mouth once daily Brexpiprazole (Rexulti) 3 mg Tablet Discontinued 3 MG PO Daily February 17, 2020 11:00pm June 05, 2023 9:13am 12 hr carBAMazepine 400 mg extended release oral tablet (20 sources) Mood Stabilizer Start: 09-28-20 21 End: 11-17-19 23 take 1 tablet by mouth every twelve [...] HR. cefTRIAXone (20 sources) Cephalosporin Antibacterial Start: 6 Rocephin 500 mg Jul, 500 mg celecoxib 200 mg oral capsule (7 sources) Nonsteroidal Anti-inflammatory Drug Start: 9 End: 0 take 1 tablet by mouth once daily Celecoxib Discontinued 1 TAB PO Daily June 17, 2019 11:00pm February 18, 2020 9:25am take 1 capsule by mo [facility] in the morning, then take 1 capsule by mouth at bedtime celecoxib (CeleBREX) 200 mg capsule Take 1 capsule (200 mg total) by mouth in the morning and 1 capsule (200 mg total) before bedtime. 0 Active cephalexin 500 mg oral capsule (5 sources) Cephalosporin Antibacterial Start: 09-20-2017 End: 10-01-2018 take 1 capsule by mouth every eight hours Cephalexin (Keflex) 500 mg capsule Discontinued 500 MG PO Q8H 21 7 September 20, 2017 12:00am October 01, 2018 9:40am cetirizine hydrochloride 5 mg oral tablet (5 sources) Histamine-1 Receptor Antagonist Start: 10-15-2018 End: [...] Take 0.5 mg by mouth twice daily. CLONIDINE TRANSDERM. (2 sources) CLONIDINE TRANSD ERM. Apply 0.1 mg as directed one time a week. 0 Active Comment on above: Apply 0.1 mg as dire cted one time a week. CPAP/BIPAP/OTHER (20 sources) Start: 12-29-2022 End: 01-10-2023 [...] breakfast docusate sodium 50 mg / sennosides, half-way 8.6 mg oral tablet (5 sources) Start: [...] Discontinued 150 MG PO Once 1 February 17, 2020 11:00pm June 05, 2023 9:13am take one PO, if still symptomatic then take another pill in 72 hrs fluticasone propionate 0.05 mg/actuat metered dose nasal spray (20 sources) Corticosteroid Start: 2017 End: 2022 Fluticasone Propionate (Flonase Allergy Relief) 50 mcg/actuation [place],Suspension Discontinued 2 SPRAY INTRANASAL Daily October 15, 2018 12:00am June 18, 2019 2:04pm Comment on above: Use 1 [place] in each nostril once daily. Fluticasone Propion-Salmeterol [...] as needed for pain. lactobacillus rhamnosus gg [id number] unt oral capsule (20 sources) Start: 06-09-2022 [...] once daily. lamoTRIgine 200 mg oral tablet (16 sources) Mood Stabilizer, Anti-epileptic Agent Start: 12-19-2018 End: 06-05-2023 take 1 tablet by mouth once daily Lamotrigine (Lamictal) 200 mg Tablet Discontinued 200 MG PO Daily December 19, 2018 12:00am June 05, 2023 9:13am Start: 10-15-2018 End: 12-19-2018 take 1 tablet by mouth twice daily Lamotrigine Discontinued 1 TAB PO Twice daily October 15, 2018 12:00am December 19, 2018 12:14pm take 1 tablet by yancy th in the morning lamoTRIgine (LaMICtal) 25 mg tablet Take 1 tablet (25 mg total) by mouth in the morning. 0 Active take 1 tablet by yancy th once daily lamoTRIgine dispersible/chewable (LAMICTAL) 25 mg tablet Take 25 mg by mouth once daily. 0 Active take 2 tablets by mo uth in the morning lamoTRIgine (LaMICtal) 25 mg tablet Take 2 tablets (50 mg total) by mouth in the morning. 0 Active Comment on above: Take 25 mg by mouth once daily. linaclotide (5 sources) Guanylate Cyclase-C Agonist Start: [...] above: Take 1 tablet by yancy th twice daily. for vaginosis. Do not drink alcohol while taking this medication Take 1 tablet by yancy th three times daily. Take 1 tablet at 6pm, 7pm, and 11pm, the evening prior to surgery. mirtazapine 15 mg oral tablet (5 sources) Start: 019 End: 020 take 2 tablets by mouth once daily [...] Comment on above: Take 2 tablets by [facility] as directed. Take 2 tablet at 6pm, 7pm, and 11pm the evening prior to surgery. nitrofurantoin, macrocrystals 25 mg / nitrofurantoin, monohydrate 75 mg oral capsule (8 sources) Nitrofuran Antibacterial Start: End: take 1 capsule by mouth twice daily at mealtime Nitrofurantoin Monohyd/M-Cryst (Macrobid) 100 mg capsule Discontinued 100 MG PO Twice daily 10 5 February 17, 2020 11:00pm June 05, 2023 9:13am must administer with a meal/food Comment on above: Take 1 capsule by mo [facility] twice daily. nystatin [id number] unt/ml topical cream (20 sources) Polyene Antifungal [...] June 05, 2023 9:13am polyethylene glycol 3350 42474 mg powder for oral solution (3 sources) [...] Comment on above: take 1 tablet by [facility] once daily psyllium 520 mg oral capsule (3 sources) Start: 12-27-2021 End: 02-08-2022 psyllium Husk (METAMUCIL) 0.52 gram capsule Take 1 capsule by mouth as directed. As needed for constipation 0 12/27/2021 02/08/2022 Discontinued (Course of therapy completed) Comment on above: Take 1 capsule by mo [facility] as directed. As needed for constipation [...] Comment on above: Take 2 tablets by [facility] three times daily as needed. 50 ml [...] on above: Take 1,000 mcg by mo [facility] once daily. vortioxetine 10 mg oral [...] Onset: 2 Episodic Acute and chronic tonsillitis (8 sources) Chronic tonsillitis; Translations: [Chronic tonsillitis] Onset: [...] urine, unspecified] 07-31-2023 Episodic Headache; including migraine (10 sources) Migraine, unspecified, not intractable, without status migrainosus; Translations: [Other migraine, not intractable, without status migrainosus] Onset: 1 01-21-2021 Chronic Headache; including migraine (4 sources) Headache; including migraine; Translations: [HEADACHE UNSPECIFIED] Onset: 3 Menopausal disorders (20 sources) Genitourinary syndrome of menopause; Translations: [Other specified menopausal and perimenopausal disorders] Onset: 1 08-04-2021 Chronic Miscellaneous mental health disorders (6 sources) Primary insomnia; Translations: [Primary insomnia] Onset: [...] 2 Chronic Other aftercare (1 source) Other correction (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; Translations: [OTH INTERMEDIATE CURRENT DRUG THERAPY] Onset: 3 Episodic Other [...] Other hereditary and degenerative nervous system conditions (4 sources) Restless legs; Translations: [Restless legs syndrome] Onset: [...] Resolved: 2 Chronic Other upper respiratory disease (4 sources) Allergic rhinitis; Translations: [Allergic rhinitis, unspecified] Onset: 6 09-07-2023 Chronic Other upper respiratory infections (4 sources) Chronic sinusitis; Translations: [Chronic sinusitis, unspecified] Onset: 2 07-07-2022 Chronic Other upper respiratory infections (5 sources) Upper respiratory infection; Translations: [Acute upper respiratory infection, unspecified] 09-24-2017 Episodic Personality disorders (2 sources) Borderline personality disorder; Translations: [Borderline personality disorder] Onset: 3 Chronic Residual codes; unclassified (20 sources) Obstructive sleep apnea syndrome; Translations: [Obstructive sleep apnea (adult) (pediatric)] Onset: 3 Chronic Residual codes; unclassified (2 sources) Obstructive sleep apnea (adult) (pediatric); Translations: [CHUCKIE [...] right leg] Onset: 3 Unclassified (1 source) Post-op Inspire Implant Onset: 4 Urinary tract infections (4 sources) Chronic interstitial cystitis; Translations: [Interstitial cystitis (chronic) [...] right ankle] Onset: 09-28-2022 Episodic Allergic reactions (4 sources) Atopic dermatitis; Translations: [Atopic dermatitis, unspecified] Onset: [...] Onset: 04-17-2022 Episodic Disorders of lipid metabolism (5 sources) Pure hypercholesterolemia , unspecified; Translations: [Hyperlipidemia] Onset: 03-08-2023 Resolved: 09-07-2023 09-07-2023 Chronic Immunizations and screening for infectious disease (1 source) Contact with and (suspected) exposure to other viral communicable diseases; Translations: [Contact with and (suspected) exposure to other viral communicable diseases Z20.828] Onset: 08-13-2021 Resolved: 08-13-2021 Episodic Malaise and fatigue (12 sources) Fatigue; Translations: [Other malaise and fatigue] Onset: 04-01-2021 Episodic Mood disorders (4 sources) Mood disorders Onset: 10-23-2023 10-23-2023 Nausea and vomiting (20 sources) Nausea and vomiting; Translations: [Nausea with vomiting, unspecified] Onset: 05-10-2022 Resolved: 05-10-2022 Episodic Nonspecific chest pain (10 sources) Chest pain; Translations: [Chest pain, unspecified] Onset: 06-05-2023 08-15-2021 Episodic Nutritional deficiencies (4 sources) Cobalamin deficiency; Translations: [Deficiency of other specified [...] [PLANTAR FASCIAL FIBROMATOSIS] Onset: 11-03-2022 Episodic Other disorders of stomach and duodenum [...] 10-19-2022 Episodic Other non-epithelial cancer of skin (4 sources) Basal cell carcinoma of chest wall; Translations: [...] Onset: 11-03-2022 Episodic Other upper respiratory disease (4 sources) Nasal congestion; Translations: [Nasal congestion] Onset: 01-11-2021 [...] Test Name Value Interpretation Reference Range Facility [facility] 12-25-2023 CNPN Telephone (GYNMN) ----- MARY LEAL ([id number]) 1970 F Date Time Provider Department 12/25/23 PAM WANG GYNOK During your visit today, we recorded the following information about you[facility]25[facility]2023 2:54 PM Signed Reason for call: other - Provider name: Dr Wang Additional comments: patient will have inspire inserted for sleep apena. She is also having surgery for bladder stem, she would like to know can she have both inserted into her body? Recommendation: routed to nurse triage pool Last visit in this department: Visit date not found Last distance health visit in this department: 10/25/2021 Assistant Editor, Nurse Next visit in this department: 01/25/2024 Stacie Gonzalez RN 12/25/2023 3:03 PM Signed See message A message has been routed to the provider Closing Stacie Gonzalez RN Allergies As of Date: 12/25/2023 Noted Allergy Reaction RISPERIDONE 07/27/2021 5 - Intolerance Comments: Breast discharge POISON LAITH EXTRACT 04/06/2023 2 - Rash Date Reviewed: 10/10/2023 Reviewed by: José Luis Thorpe RN - Fully Assessed Reason for Visit: Question [1327] Prescriptions as of 12/25/2023 - ARIPiprazole monohydrate (ABILIFY MAINTENA) 300 mg [...] the AM and 2 mg PM - bqttwnxbvui-lpqhrtaov-ebd anter (TRELEGY ELLIPTA) 100-62.5-25 mcg Inhale 1 Puff as instructed once daily. Problem List As Of Date 12/25/2023 Noted Resolved Impingement syndrome of right shoulder [...] 11/21/2022 Nausea [R11.0] 11/30/2022 Encounter Status:Closed by STACIE GONZALEZ on 12/25/23 Normal [facility] BASIC METABOLIC PANLon 12-20 Anion gap [Moles/Vol] 6 mmol/L Normal 5-15 [facility] Comment on above: Performed By: #### B MP #### [facility] ([id number]) [address], [address] [place] [address] Calcium [Mass/Vol] 9.3 mg/dL Normal 8.5-10.5 [facility] Comment on above: Performed By: #### B MP #### [facility] ([id number]) [address] [place] [address] Chloride [Moles/Vol] 105 mmol/L Normal 98-109 [facility] Comment on above: Performed By: #### B MP #### [facility] ([id number]) [address], [address] [place] [address] CO2 [Moles/Vol] 28 mmol/L Normal 22-32 [facility] Comment on above: Performed By: #### B MP #### [facility] ([id number]) [address], [address] [place] [address] Creatinine [Mass/Vol] 0.60 mg/dL Normal 0.40-1.00 [facility] Comment on above: Result Comment: METH OD TRACEABLE TO IDMS STANDARD Performed By: #### B MP #### [facility] ([id number]) [address], [address] [place] [address] eGFR (CKD-EPI) NON-RACE DEPENDENT >90 Normal >59 [facility] Comment on above: Result Comment: Reported eGFR is based on the CKD-EPI 2020 equation that does not use a race coefficient. Performed By: #### B MP #### [facility] ([id number]) [address], [address] [place] [address] Glucose [Mass/Vol] 85 mg/dL Normal 65-99 [facility] Comment on above: Performed By: #### B MP #### [facility] ([id number]) [address], [address] [place] [address] Potassium [Moles/Vol] 4.2 mmol/L Normal 3.5-5.0 [facility] Comment on above: Performed By: #### B MP #### [facility] ([id number]) [address], [address] [place] [address] Sodium [Moles/Vol] 139 mmol/L Normal 134-146 [facility] Comment on above: Performed By: #### B MP #### [facility] ([id number]) [address] [address], [address] [place] [address] Urea nitrogen [Mass/Vol] 14 mg/dL Normal 5-23 [facility] Comment on above: Performed By: #### B MP #### [facility] ([id number]) [address], [address] [place] [address] Basic Metabolic Panelon 12-07 Anion gap [Moles/Vol] 6 mmol/L 5 - 15 mmol/L [facility] Calcium [Mass/Vol] 9.3 mg/dL 8.5 - 10. 5 mg/dL [facility] Chloride [Moles/Vol] 105 mmol/L 98 - 10 9 mmol/L [facility] CO2 [Moles/Vol] 28 mmol/L 22 - 32 mmol/L [facility] Creatinine [Mass/Vol] 0.60 mg/dL 0.40 - 1.00 mg/dL [facility] Comment on above: METHOD TRACEABLE TO IDMI STANDARD eGFR (CKD-EPI)non-race dependent - PINF [facility] Comment on above: Reported eGFR is based on the CKD-EPI 2020 equation that does not use a race coefficient. Glucose [Mass/Vol] 85 mg/dL 65 - 99 mg/dL [facility] Potassium [Moles/Vol] 4.2 mmol/L 3.5 - 5.0 mmol/L [facility] Sodium [Moles/Vol] 139 mmol/L 134 - 146 mmol/L [facility] Urea nitrogen [Mass/Vol] 14 mg/dL 5 - 23 mg/dL [facility] 36on 12-05-2023 36 Scheduled Inspire activation appointment 02/06 at 9:15 am. [facility] ----- MARY LEAL ([id number]) 1970 F Date Time Provider Department 11/27/23 PAM WANG [facility] During your visit today, we recorded the following information about you: Amber Trimble 11/27/2023 9:32 AM Signed Patient: Mary Leal : 1970 Provider: Pam Wang MD Caller Phone #: [phone] (home) [phone] (cell) Reason for call: boyfriend pulled out bladder stimulator. Has log of 6 days of usage. Would like a call. Message routed to nurse triage Date of next visit: MEREDITH: 08/04/2021 Lex Vieyra RN 11/27/2023 10:18 AM Signed MEREDITH 11/21/2023: Procedure to be performed: Peripheral Nerve Evaluation (PNE) Indication: Urinary frequency, urinary urgency, overactive bladder The patient tolerated the procedure well. We will see how she does over the next week and plan for interstim stages 1/2 in the OR. Pam Wang MD Mary reports the PNE stimulator stopped connecting so Kim of [employer] said to remove it. She removed the [...] Fully Assessed Reason for Visit: Patient Update [0314] Primary Visit Diagnosis:Urinary urgency [R39.15] Other Visit Diagnoses:Urinary frequency [R35.0] OAB (overactive bladder) [N32.81] Urinary incontinence, urge [N39.41] Order(s):SURGICAL REQUEST - ELECTIVE (06/2020) [[id number]] Order #: [id number]: 1 Prescriptions as of 11/27/2023 - ARIPiprazole [...] the AM and 2 mg PM - lagmdbpsobz-fxymjsrla-hum anter (TRELEGY ELLIPTA) 100-62.5-25 mcg Inhale 1 [...] Encounter Status:Closed by PAM WANG on 11/27/23 [facility] 11-25-2023 CNPN Telephone (GYNMN) ----- MARY LEAL ([id number]) 1970 F Date Time Provider Department 11/25/23 RADHA DUNHAM GYNMN During your visit today, we recorded the following information about you: Radha Dunham MD 11/25/2023 2:43 PM Signed Recruitment Manager Resident Telephone Encounter 11/25/2023 2:40 PM Call [...] adequately. Discussed with Dr. Mullins, Urogyn fellow evaluation advisor. Radha Dunham MD Obstetrics and Gynecology, PGY1 Allergies As of Date: 11/25/2023 Noted Allergy Reaction RISPERIDONE 07/27/2021 5 - Intolerance Comments: Breast discharge POISON LAITH EXTRACT 04/06/2023 2 - Rash Date Reviewed: 10/10/2023 Reviewed by: José Luis Thorpe RN - Fully Assessed Reason for Visit: Patient Question [4045] Prescriptions as of 11/25/2023 - ARIPiprazole monohydrate [...] the AM and 2 mg PM - wopkkboqmuq-dlytzpulm-hhb anter (TRELEGY ELLIPTA) 100-62.5-25 mcg Inhale 1 [...] Status:Closed by RADHA DUNHAM on 11/25/23 [facility] hepatobiliary w pharmon 0 11-23-2023 [place] [address] Nuclear Medicine Report Signed Patient: Mary Leal MR#: [id number] : 1970 Acct:[id number] Age/Sex: 53 / F ADM Date: 11/23/23 Loc: [place] Room: Type: [facility] Attending Dr: Eagle Vazquez DO Copies to: Quinton Melendez Jr, DO Paul C Laffay, DO Ordering Provider: Eagle Vazquez DO Date of Service: 11/23/23 [place] hepatobiliary w pharm: RUQ pain, Nausea HIDA [...] is 68%. Normal is greater than 40%. [place] hepatobiliary w pharm IMPRESSION: Normal HIDA scan. Impression dictated by: Quinton Melendez Jr., D.OReno11/23/2023 11:56 AM Dictation Location: [place] [address] Transcribed By: MARIO 11/23/23 1156 Dictated By: Quinton Melendez Jr, DO 11/23/23 1155 Signed By: 11/23/23 1156 [facility] CNOVon 11-21-2023 CNOV Office Visit (SHERON ) ----- MARY LEAL ([id number]) 1970 F Date Time Provider Department 11/21/23 [...] Voiding dysfunction [N39.8] Order(s):UA DIP, URINE (POC) [[id number]] Order #: [id number]. #:[id number] [] ondansetron orally disintegrating 4 mg [...] (GAS RE (more content not included)... Normal [facility] BI MAMMOGRAM SCREENING TOMOS YNTHESIS BILATERALon 10-31-2023 [...] IS VERY IMPORTANT TO YOUR HEALTH. THE [employer] GUIDELINES RECOMMEND THAT WOMEN 40 [...] DO Normal Not Available Documentationon 10-12-2023 Documentation [id number] Darrian Leal 1970 F Date Provider Department Center 10/12/2023 Karli-GIANA MORALES [facility] PSYCH Gerardo Heal No family history on file Normal [facility] CNOVon 10-10-2023 CNOV Office Visit (SHERON ) ----- MARY LEAL ([id number]) 1970 F Date Time Provider Department 10/10/23 [...] PFSH obtained by others. Pam Wang MD 4Th Grade Teacher offered: Patient declines. OBJECTIVE: BP 102/60 General: [...] would like to move forward with PNE. Ultora packet given to patient today to review. [...] which included preparing to see the patient, nqum-ae-mtmo patient care, completing clinical (more content not included)... Normal [facility] XR CHEST 2 VIEWSon 3 XR CHEST 2 VIEWS FINDINGS: Comparison, June 09, 2021. Intervertebral disc space device again identified lower cervical spine. Cardiopericardial silhouette normal. Pulmonary vasculature normal. Lungs clear. IMPRESSION: Impression: No acute cardiopulmonary disease. ELECTRONICALLY SIGNED BY: Rigo Strauss MD Normal Not Available Orders Onlyon 09-19-2023 Orders Only [id number] Darrian Leal en 1970 F Date Provider Department Center 09/19/2023 Karli-GIANA MORALES [facility] PSYCH Gerardo Heal No family history on file Normal [facility] Hussain 09-12-[address] [facility] Telephone (WHQ) ----- ELVISMARY Zoya ([id number]) 1970 F Date Time Provider Department 09/12/23 PAM WANG [facility] During your visit today, we [...] which included preparing to see the patient, ewmp-vm-vtys patient care, completing clinical documentation, obtaining and/or reviewing separately obtained history, counseling and educating the patient/family/caregiver, ordering medications, tests, or procedures, and communicating with other HCPs (not separately reported). Pam Wang MD Amry states she had her procedure yesterday and [...] Office will call to schedule cystoscopy. Urogynecology [facility] Main provided: Pam Wang Staff Physician, [...] Diagnosis:History of suburethral sling procedure [Z98.890] Order(s):CYSTOSCOPY [facility] [[id number]] Order #: [id number] Prescriptions as of 09/12/2023 - atenolol (TENORMIN) [...] Take 1,000 (more content not included)... Normal [facility] CNOVon 09-11-2023 CNOV Office Visit (UROSMN ) ----- MARY LEAL ([id number]) 1970 F Date Time Provider Department 09/11/23 [...] Jenifer Barry RN 09/11/2023 11:37 AM Signed [facility] URODYNAMICS LAB URODYNAMIC [...] allergy: No Females- Is patient : No 4Th Grade Teacher offered:Patient declines B/O UA: YES DIP: UROFLOWMETRY [...] Jairon Lai MD 09/11/2023 1:18 PM Signed [facility] ASHAWAY FOR FEMALE PELVIC MEDICINE AND RECONSTRUCTIVE SURGERY [...] Jairon Lai MD Referring Provider: PAM WANG [[id number]] Allergies As of Date: 09/11/2023 Noted Allergy [...] milliliters subcut (more content not included)... Normal [facility] Orders Onlyon 09-01-2023 Orders Only [id number] Darrian Leal en 1970 F Date Provider Department Center 09/01/2023 GIANA JAMES [facility] PSYCH Gerardo Heal No family history on file Normal [facility]al [facility] Telemedici neon 08-23-2023 Behavioral [facility] Telemedicine [id number] Darrian Lealen 1970 F Date Provider Department Center 08/23/[address] GIANA JAMES [facility] PSYCH Gerardo Heal No family history on file Level of Service:00862 MS OFFICE/OUTPATIENT ESTABLISHED MOD MDM 30-39 MIN Normal [facility] Orders Onlyon 08-21-2023 Orders Only [id number] Darrian Leal en 1970 F Date Provider Department Center 08/21/20[address] GIANA JAMES [facility] PSYCH Gerardo Heal No family history on file Normal [facility] BASIC METABOLIC PANELon 10-0 Anion gap [Moles/Vol] 1 mmol/L Low 8-12 [facility] Comment on above: Performed By: #### 4 [id number], [id number], [id number], [id number] #### [facility] [address] [place] [address] [place] Calcium [Mass/Vol] 9.2 mg/dL Normal 8.4-10.4 [facility] Comment on above: Performed By: #### 4 [id number], [id number], [id number], [id number] #### [facility] [address] [place] [address] [place] Chloride [Moles/Vol] 105 mmol/L Normal 96-109 [facility] Comment on above: Performed By: #### 4 [id number], [id number], [id number], [id number] #### [facility] [address] [place] [address] [place] CO2 [Moles/Vol] 32 mmol/L High 22-30 [facility] Comment on above: Performed By: #### 4 [id number], [id number], [id number], [id number] #### [address] [address] [place] Creatinine [Mass/Vol] 0.67 mg/dL Normal 0.52-1.04 [facility] [employer] [facility] Comment on above: Performed By: #### 4 [id number], [id number], [id number], [id number] #### [address] [address] [place] GLOMERULAR FILTRATION RATE ML/MIN/1.73 SQ M.PREDICTED >90.0 Normal >=60.0 [facility] Comment on above: Result Comment: [...] Kidney Int Suppl.2013;3:1-150 Performed By: #### 4 [id number], [id number], [id number], [id number] #### [address] [address] [place] Glucose [Mass/Vol] 104 mg/dL High 65-100 [facility] [employer] [facility] Comment on above: Performed By: #### 4 [id number], [id number], [id number], [id number] #### [facility] [address] [place] [address] [place] Potassium [Moles/Vol] 4.6 mmol/L Normal 3.6-5.1 [facility] [employer] [facility] Comment on above: Performed By: #### 4 [id number], [id number], [id number], [id number] #### [address] [address] [place] Sodium [Moles/Vol] 138 mmol/L Normal 135-147 [facility] [employer] [facility] Comment on above: Performed By: #### 4 [id number], [id number], [id number], [id number] #### [facility] [address] [place] [address] [place] Urea nitrogen [Mass/Vol] 16 mg/dL Normal 8-26 [facility] [employer] [facility] Comment on above: Performed By: #### 4 [id number], [id number], [id number], [id number] #### [facility] [address] Basic metabolic panel aka Ch em 8on 08-12-2023 Anion gap [Moles/Vol] 1 mmol/L Low 8 - 12 mmol/L [facility] Calcium [Mass/Vol] 9.2 mg/dL 8.4 - 10. 4 mg/dL [facility] Calcium hydrogen phosphate dihydrate crystals LM Ql (Urine sed) 16 mg/dL 8 - 26 mg/dL [facility] Chloride [Moles/Vol] 105 mmol/L 96 - 10 9 mmol/L [facility] CO2 (BldMV) [Moles/Vol] 32 mmol/L High 22 - 30 mmol/L [facility] Creatinine [Mass/Vol] 0.67 mg/dL 0.52 - 1.04 mg/dL [facility] GFR/1.73 sq M.predicted MDRD (S/P/Bld) [Vol rate/Area] - PINF [facility] Comment on above: eGFR calculation [...] 104 mg/dL High 65 - 100 mg/dL [facility] Interpretation and review of laboratory results Abnormal [facility] Potassium [Moles/Vol] 4.6 mmol/L 3.6 - 5.1 mmol/L [facility] Sodium [Moles/Vol] 138 mmol/L 135 - 147 mmol/L [facility] CBC AND DIFFERENTIALon 08-12 ABSOLUTE BASOPHIL 0.0 x10*3/uL Normal 0.0-0.1 [facility] Comment on above: Performed By: #### 4 [id number] #### [facility] [address] ABSOLUTE EOSINOPHIL 0.1 x10*3/uL Normal 0.1-0.3 [facility] Comment on above: Performed By: #### 4 [id number] #### [address] ABSOLUTE IMMATURE GRANULOCYTES 0.0 x10*3/uL Normal 0.0-0.1 [facility] Comment on above: Performed By: #### 4 [id number] #### [address] ABSOLUTE LYMPH 1.6 x10*3/uL Normal 1.2-3.3 [facility] Comment on above: Performed By: #### 4 [id number] #### [address] ABSOLUTE MONO 0.3 x10*3/uL Normal 0.2-0.6 [facility] Comment on above: Performed By: #### 4 [id number] #### [address] ABSOLUTE NEUTROPHIL 3.1 x10*3/uL Normal 2.4-6.6 [facility] Comment on above: Performed By: #### 4 [id number] #### [address] Basophils/100 WBC (Bld) 0.8 % Normal [facility] Comment on above: Performed By: #### 4 [id number] #### [address] Eosinophils/100 WBC (Bld) 2.7 % Normal [facility] Comment on above: Performed By: #### 4 [id number] #### [address] Erythrocyte distribution width (RBC) [Ratio] 13.0 % Normal 11.5-14.5 [facility] Comment on above: Performed By: #### 4 [id number] #### [address] Hematocrit (Bld) [Volume fraction] 37.5 % Normal 33.6-46.8 [facility] Comment on above: Performed By: #### 4 [id number] #### [address] Hemoglobin (Bld) [Mass/Vol] 11.8 g/dL Normal 11.7-15.8 [facility] Comment on above: Performed By: #### 4 [id number] #### [address] Immature granulocytes/100 WBC (Bld) 0.4 % Normal [facility] Comment on above: Performed By: #### 4 [id number] #### [address] Lymphocytes/100 WBC (Bld) 31.5 % Normal [facility] Comment on above: Performed By: #### 4 [id number] #### [address] MCH (RBC) [Entitic mass] 26.5 pg Low 27.5-32.3 [facility] Comment on above: Performed By: #### 4 [id number] #### [address] MCHC (RBC) [Mass/Vol] 31.5 g/dL Normal 30.7-35.5 [facility] Comment on above: Performed By: #### 4 [id number] #### [address] MCV (RBC) [Entitic vol] 84.3 fL Normal 80.2-99 [facility] Comment on above: Performed By: #### 4 [id number] #### [address] Monocytes/100 WBC (Bld) 5.4 % Normal [facility] Comment on above: Performed By: #### 4 [id number] #### [address] Neutrophils/100 WBC (Bld) 59.2 % Normal [facility] Comment on above: Performed By: #### 4 [id number] #### [address] NUCLEATED RED BLOOD CELLS AUTO 0.0 % Normal 0.0-1.0 [facility] Comment on above: Performed By: #### 4 [id number] #### [address] PLATELET COUNT 299 x10*3/uL Normal 150-400 [facility] Comment on above: Performed By: #### 4 [id number] #### [facility] [address] RED BLOOD CELL COUNT 4.45 x10*6/uL Normal 3.60-5.20 [facility] Comment on above: Performed By: #### 4 [id number] #### [facility] [address] WHITE BLOOD CELLS 5.2 x10*3/uL Normal 4.3-10.3 [facility] Comment on above: Performed By: #### 4 [id number] #### [facility] [address] CBC with differentialOrdered By: Background Lab on 08-12-2023 Absolute Immature Granulocytes 0.0 [facility] Age [Time] 84.3 fL 80.2 - 99 fL [facility] Age [Time] 26.5 pg Low 27.5 - 32.3 pg [facility] Age [Time] 31.5 g/dL 30.7 - 35.5 g/dL [facility] B. burgdorferi IgM IB Ql (CSF) 31.5 % [facility] Basophils (Bld) [#/Vol] 0.0 10*3/uL [facility] Basophils/100 WBC (Body fld) 0.8 % [facility] Eosinophils (Bld) [#/Vol] 1.6 10*3/uL [facility] Eosinophils (Bld) [#/Vol] 0.3 10*3/uL [facility] Eosinophils (Bld) [#/Vol] 0.1 10*3/uL [facility] Eosinophils/100 WBC (Bld) 2.7 % [facility] Erythrocyte distribution width (RBC) [Ratio] 13.0 % 11.5 - 14.5 % [facility] Hematocrit (Bld) [Volume fraction] 37.5 % 33.6 - 46.8 % [facility] Hexanoylglycine (U) [Moles/Vol] 11.8 g/dL 11.7 - 15.8 g/dL [facility] Immature granulocytes/100 WBC (Bld) 0.4 % [facility] Interpretation and review of laboratory results Abnormal [facility] Monocytes/100 WBC (Bld) 5.4 % [facility] Neurotensin (P) [Mass/Vol] 59.2 % [employer] Neutrophils (Bld) [#/Vol] 3.1 10*3/uL [employer] Nucleated RBC/100 WBC (Bld) [Ratio] 0.0 % 0.0 - 1.0 % [employer] Platelets (Bld) [#/Vol] 299 10*3/uL [employer] RBC (Bld) [#/Vol] 4.45 10*6/uL [employer] WBC (Bld) [#/Vol] 5.2 10*3/uL [employer] [facility] adjust CT ABDOMEN PELVIS WITH IV CO NTRASTon [...] 20 RAC Omni 300 100 ml Normal [employer] HEPATIC FUNCTION PANELon Albumin [Mass/Vol] 4.0 g/dL Normal 3.5-5.0 [facility] Comment on above: Performed By: #### 4 [id number], [id number], [id number], [id number] #### [facility] [address] ALK PHOS 104 U/L Normal 24-126 [facility] Comment on above: Performed By: #### 4 [id number], [id number], 52451693, [id number] #### [address] ALT [Catalytic activity/Vol] 50 U/L High 4-35 [facility] Comment on above: Performed By: #### 4 [id number], [id number], [id number], [id number] #### [address] AST [Catalytic activity/Vol] 59 U/L High 3-47 [facility] Comment on above: Performed By: #### 4 [id number], [id number], [id number], [id number] #### [address] Bilirubin [Mass/Vol] 0.1 mg/dL Low 0.2-1.6 [facility] Comment on above: Performed By: #### 4 [id number], [id number], 03087355, [id number] #### [address] Bilirubin.indirect [Mass/Vol] 0.1 mg/dL Normal <=0.5 [facility] Comment on above: Performed By: #### 4 9081823, 83239837, [id number], [id number] #### [address] Protein [Mass/Vol] 6.6 g/dL Normal 6.3-8.2 [facility] Comment on above: Performed By: #### 4 [id number], [id number], [id number], [id number] #### [address] Hepatic Function Panelon Albumin (Syn fld) [Mass/Vol] 4.0 g/dL 3.5 - 5.0 g/dL [facility] Aldosterone (U) [Mass/Vol] 104 U/L 24 - 126 U/L [facility] ALT [Catalytic activity/Vol] 50 U/L High 4 - 35 U/L [facility] AST [Catalytic activity/Vol] 59 U/L High 3 - 47 U/L [facility] Bilirubin [Mass/Vol] 0.1 mg/dL Low 0.2 - 1 .6 mg/dL [facility] Bilirubin.conjugated [Mass/Vol] 0.1 mg/dL NINF - 0.5 mg/dL [facility] adjust Protein [Mass/Vol] 6.6 g/dL 6.3 - 8.2 g/dL [facility] LIPASEon 08-12-2023 Lipase [Catalytic activity/Vol] 11 U/L Low 23-300 [facility] Comment on above: Performed By: #### 4 [id number], 10006165, [id number], [id number] #### [facility] [address] Lipaseon 08-12-2023 Lipase [Catalytic activity/Vol] 11 U/L Low 23 - 300 U/L [facility] No Panel Informationon 08-12 Extra Tube Hold for add-ons. [facility] Interpretation and review of laboratory results Abnormal [facility] POCT ED/FC/GSC Urine PregOrd ered By: Della Hays on 08-12-2023 Beta HCG ( test) Ql (U) Negative [facility] Interpretation and review of laboratory results Normal [facility] [employer] [facility] Life Trainer Acceptable yes [facility] TROPONIN Ion 08-12-2023 Troponin I.cardiac [Mass/Vol] ng/mL Normal <=0.033 [facility] Comment on above: Result Comment: Nega tive: No detectable troponin-I. Performed By: #### 4 [id number] #### [place] [address] [place] TROPONIN I SERIESon 08-12-20 Troponin I.cardiac [Mass/Vol] ng/mL Normal <=0.033 [facility] Comment on above: Result Comment: Nega tive: No detectable troponin-I. Performed By: #### 4 [id number], [id number], [id number], [id number] #### [address] [address] [place] Troponin I (One time)on Interpretation and review of laboratory results Normal [facility] Troponin I.cardiac [Mass/Vol] ng/mL NINF - 0.033 ng/mL [facility] Comment on above: Negative: No detectable troponin-I. [facility] Troponin I - Series (X 3)on 08-12-2023 Interpretation and review of laboratory results Normal [facility] Troponin I.cardiac [Mass/Vol] ng/mL NINF - 0.033 ng/mL [facility] Comment on above: Negative: No detectable troponin-I. [facility] URINALYSIS WITH REFLEX CULTU REon 08-12-2023 Appearance (U) Clear Normal [facility] Comment on above: Performed By: #### 4 [id number] #### [address] BILIRUBIN UA Negative Normal Negative [facility] Comment on above: Performed By: #### 4 [id number] #### [address] Color (U) Yellow Normal [facility] Comment on above: Performed By: #### 4 [id number] #### [address] Glucose Ql (U) Negative Normal Negative [facility] Comment on above: Performed By: #### 4 [id number] #### [address] Ketones Ql (U) Negative Normal Negative [facility] Comment on above: Performed By: #### 4 [id number] #### [address] LEUKOESTERASE Negative Normal Negative [facility] Comment on above: Performed By: #### 4 [id number] #### [address] MUCOUS-URINE Occasional Normal [facility] Comment on above: Performed By: #### 4 [id number] #### [place] [address] [place] Nitrite Ql (U) Negative Normal Negative [facility] Comment on above: Performed By: #### 4 [id number] #### [place] [address] [place] OCCULT BLD Negative Normal Negative [facility] Comment on above: Performed By: #### 4 [id number] #### [address] PH, URINE 5.0 Normal [facility] Comment on above: Performed By: #### 4 [id number] #### [address] Protein Ql (U) Negative Normal Negative [facility] Comment on above: Performed By: #### 4 [id number] #### [address] RBC LM.HPF (Urine sed) [#/Area] /[HPF] Normal <=5 [facility] Comment on above: Performed By: #### 4 [id number] #### [address] SPECIFIC GRAVITY, URINE 1.025 Normal [facility] Comment on above: Performed By: #### 4 6933221 #### [address] SQUAMOUS EPI CELLS 51 /LPF Normal [facility] Comment on above: Performed By: #### 4 [id number] #### [address] UROBILINOGEN UA Negative Normal <2.0 [facility] Comment on above: Performed By: #### 4 [id number] #### [address] WBC LM.HPF (Urine sed) [#/Area] 2 /[HPF] Normal <=5 [facility] Comment on above: Performed By: #### 4 [id number] #### [address] Urinalysis complete W Reflex Culture panel (U)on 08-12-2023 Acetone [Mass/Vol] Negative Negative [facility] Appearance (Body fld) Clear [facility] Bilirubin Ql (U) Negative Negative [facility] Color (Stone) Yellow [facility] G6PD (RBC) [Catalytic activity/Vol] Negative Negative [facility] Hemoglobin Ql (U) NINF [facility] Leukocyte esterase Test strip Ql (U) Negative Negative [facility] Mucor racemosus IgE Qn (S) Occasional /LPF [facility] Nitrite Test strip (U) [Mass/Vol] Negative Negative [facility] pH (Migue fld) 5.0 [facility] Protein (U) [Mass/Vol] Negative Negative [facility] IgE Qn (S) Negative Negative [facility] System Specific gravity (U) [Rel density] 1.025 [facility] Spherocytes LM Ql (Bld) 51 /LPF [facility] Urobilinogen Qn (U) Negative NINF - 2.0 [facility] WBC (U) [#/Vol] 2 /uL NINF [facility] 36on 08-02-2023 36 Call placed to alex spears to discuss how often she is taking Miralax. Patient is taking Miralax once daily as instructed. Per Alba Montague she was instructed that she can take it twice a day. Also advised patient that Alba Montague will be consulting with the physician who performed her procedure. Normal [facility] Orders Onlyon 08-02-2023 Orders Only [id number] Darrian Leal 1970 F Date Provider Department Center 08/02/2023 Karli-GIANA MORALES 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 She has no history of an abnormal mammogram with cysts on US LMP: No LMP recorded. Patient has had a hysterectomy.; Menopause 3 years ago; hysterectomy in 2015: Menstrual history: NA; Deliveries: I have confirmed and edited as necessary, the PFSH obtained by others. Nelsy Chávez APRN.IMPLEMENTATION PROJECT MANAGER 4Th Grade Teacher offered: Patient declines. OBJECTIVE: There were no [...] which included preparing to see the patient, vxok-qn-vjyv patient care, completing clinical documentation, performing a [...] [R35.0] Nocturia [R35.1] Order(s):UA DIP, URINE (POC) [[id number]] Order #: [id number]. #:[id number] 45-LAB URODYNAMICS [facility] [[id number]] Order #: [id number] Prescriptions as of 07/31/2023 - atenolol (TENORMIN) [...] 10 m (more content not included)... [facility] DIP, URINE (POC)on 2022 BILIRUBIN UA (POCT) Negative Negative [facility] CLARITY UA (POCT) Clear [facility] COLOR UA (POCT) Yellow [facility] GLUCOSE UA (POCT) Negative Negative mg/dL [facility] Hemoglobin Ql (U) Negative Negative [facility] KETONE UA (POCT) Negative Negative mg/dL [facility] LEUKOCYTES UA (POCT) Negative Negative [facility] NITRITE UA (POCT) Negative Negative [facility] PH UA (POCT) 5.0 4.5 - 8.0 [facility] Protein Ql (U) Negative Negative mg/dL [facility] SPECIFIC GRAVITY UA (POCT) 1.010 1.005 - 1.030 [facility] UROBILINOGEN UA (POCT) 0.2 E.U./dL Brenda l E.U./dL [facility] HISTOLOGY - TISSUE EXAMon LAB AP [...] the Clinical Laboratory Improvement Amendments of 1998. [facility] Comment on above: Performed By: #### L [id number] ####[facility] (BEAKER)[address] [place] [address] LAB AP CASE REPORT [facility] Comment on above: Result Comment: Surg ical Pathology Case: [id number] Authorizing Provider: Matteo Quinones MD Collected: 07/25/20236 Ordering Location: Eliceo Silva [facility] Received: 07/25/2023 12[facility] [place] Pathologist: Boni Benito MD Specimens: A) - Small Intestine, Duodenum, R/O CELIAC B) - Gastric, R/O H PYLORI C) - Distal Esophagus, R/O EOE D) - Proximal Esophagus, R/O EOE E) - Small Intestine, Terminal Ileum, R/O COLITIS Performed By: #### L [id number] ####[facility] (BEAKER)[address] [place] [address] LAB AP CLINICAL INFORMATION Order Diagnoses [facility] Comment on above: Result Comment: K21. 9 - Gastroesophageal reflux disease without esophagitis [ICD-10-CM] R11.0 - Nausea [ICD-10-CM] R19.7 - Diarrhea, unspecified type [ICD-10-CM] Performed By: #### L [id number] ####[facility] (BEAKER)[address] [place] [address] LAB AP GROSS DESCRIPTION Normal [facility] Comment on above: Result Comment: A. [...] formalin in a container labeled Maryjose Leal, Terminal Ile R/O COLITIS . It consists of 2, soft, jaimes-white tissue biopsy fragments measuring 0.3 x 0.2 x 0.2 cm and 0.1 x 0.1 x 0.1 cm in aggregate. The entire specimen is submitted in 1 cassette. Leyla Bishnu, PGY 1 Performed By: #### L [id number] ####[facility] ([facility])[address] [place] [address] LAB AP MICROSCOPIC DESCRIPTION Microscopic examination performed. [facility] Comment on above: Performed By: #### L [id number] ####[facility] ([facility])[address] [place] [address] LAB AP REPORT FINAL DIAGNOSIS NARRATIVE [facility] Comment on above: Result Comment: A. [...] or malignancy identified. Performed By: #### L [id number] ####[facility] ([facility])[address] [place] [address] [facility] 07-25-2023 H&P reviewed. The cecilia montemayor was examined and there are no changes to the H&P. [facility] HP ----- ----- Attestation signed by Matteo [...] bowel movements. Plan EGD and colonoscopy Normal [facility] NURSNOTEon 07-25-2023 NURSNOTE ANASTOMOSIS SITE REACHED Normal [facility] Orders Onlyon 07-25-2023 Orders Only [id number] Darrian Leal en 1970 F Date Provider Department Center 07/25/202354533-ZGNHGFILIPE PAZ [facility] Pavi No family history on file Normal [facility] POCT GLUCOSE METER UNSOLICIT ED RESULTSon 07-25-2023 Glucose [Mass/Vol] 87 mg/dL Normal 70-105 [facility] Comment on above: Order Comment: Waive d Testing in the ED is performed under the ED CLIA certificate #[id number]. Result Comment: dhol as Performed By: #### L [id number] ####[facility] (BEAKER)[address] [place] [address] Orders Onlyon 07-21-2023 Orders Only [id number] Darrian Leal en 1970 F Date Provider Department Center 07/21/2023 ARELI PEREA [facility] No family history on file Normal [facility] Orders Onlyon 07-19-2023 Orders Only [id number] Darrian Leal en 1970 F Date Provider Department Center 07/19/2023 Karli-GIANA MORALES [facility] PSYCH Gerardo Heal No family history on file Normal [facility] Prep for Procedureon 023 Prep for Procedure [id number] Darrian Leal 1970 F Date Provider Department Center 07/17/2023 Sakina-MATTEO QUINONES [facility] GEORGEI No family history on file Normal [facility] HPon 07-11-2023 HP Formatting of this n ote is different from the original. Images from the original note were not included. [facility] [address] [place] [address] [address] SUBJECTIVE: Patient ID: Mary Leal is a [...] (attention deficit disorder) Anxiety Asthma Bipolar disorder [facility] Depression Dysphagia Gastric paresis GERD (gastroesophageal reflux disease) Headache migraines History of pleurisy STATES 2 WEEKS AGO Hypertension Obesity Primary insomnia 07/07/2020 Rectal bleeding Restless leg syndrome Visual impairment one contact left, glasses Past Surgical History: Procedure Laterality Date APPENDECTOMY ARTHROSCOPIC REPAIR ACL Left COLONOSCOPY COLONOSCOPY with bx's N/A 03/20/2020 Performed by Noman Mayo MD at [facility] ENDOSCOPY EGD, DILATATION N/A 09/25/2020 Performed by Noman Mayo MD at [facility] ENDOSCOPY FOOT SURGERY 06/25/2020 left foot surgery HYSTERECTOMY LASER LINGUAL TONISILLECTOMY Circumferential 07/08/2021 Performed by Areli Avila MD PhD at [facility] MRI FOOT LEFT NECK SURGERY PLANTAR FASCIECTOMY RELEASE PHARYNGEAL SCAR CPT 98635 Circumferential 07/08/2021 Performed by Areli Avila MD PhD at [facility] RESECTION SUBMUCOSAL NASAL Bilateral 02/11/2021 Performed by Areli Avila MD PhD at [facility] SEPTOPLASTY Circumferential 02/11/2021 Performed by Areli Avila MD PhD at [facility] TONSILLECTOMY Bilateral 02/11/2021 Performed by Areli Avila MD PhD at [facility] uvuloplasty N/A 02/11/2021 Performed by Areli Avila MD PhD at [facility] Family History Problem Relation Age of [...] tablet (3 mg total) by mouth nightly. vmguptqwuli-fhjjjmlyw-wza anter (TRELEGY ELLIPTA) 100-62.5-25 mcg blister with [...] no mor (more content not included)... Normal [facility] Orders Onlyon 06-26-2023 Orders Only [id number] Darrian Leal 1970 F Date Provider Department Center 06/26/20[address] GIANA JAMES [facility] PSYCH Gerardo Heal No family history on file [facility] Office Visit (Cardiology)on 06-13-2023 Follow-up visit Diagnoses/Problems Assessed Chest pain (786.50) (R07.9) Elevated troponin (790.6) (R77.8) Fatigue (780.79) (R53.83) Never a smoker Overweight with body mass index (BMI) of 27 to 27.9 in adult (278.02,V85.23) (E66.3,Z68.27) Orders Elevated troponin IO EKG Electrocardiogram- 12 Lead; Status:Active - Perform Order,Retrospective Authorization; Requested for:29Sum2469; Overweight with body mass index (BMI) of 27 to 27.9 in adult Healthy Weight Tips; Status:Complete - Retrospective Authorization; Done: [id number] Some eating tips that can help you lose weight.; Status:Complete - Retrospective Authorization; Done: [id number] SocHx: Never a smoker Tobacco Use Screening; Status:Complete; Done: 12Izj0940 Patient Instructions Please bring all medicines, vitamins, [...] weakness, dizziness, diaphoresis with recent work-up that [facility] emergency room. Reportedly her troponins are [...] of which are currently being investigated at [facility] (now her fourth GI specialist). Last year while in [place] she had similar issues with elevated troponins in the ED and underwent heart catheterization that did not reveal any specific significant disease, details of the discharge summary are reviewed She underwent recent stress perfusion imaging at [facility], the report is reviewed, she has [...] disease, will investigate the troponin rise at [facility] however I believe this is likely a non-[place] troponin elevation, likely associated with underlying inflammatory [...] negative for complaint. Vitals Vital Signs Recorded: [id number] 10:37AM Heart Rate70, Apical Fhbaflzk786, RUE, Sitting Ybhjfckdx07, RUE, Sitting Height5 ft 4 in Kuvirm431 lb BMI Wgpqqpbvtq76.46 kg/m2 BSA Calculated1.78 Tobacco Useb) No PHQ-2 [...] Screening.on 023 Adult depression screening assessment No -[facility] [employer] [facility] [address] DO Work Phone: Adult depression screening assessment Yes [facility] [address] DO Work Phone: Adult depression screening assessment Moderate (10-14) [facility] [address] DO Work Phone: Fall risk assessment a) No falls within the last year [facility] [address] DO Work Phone: Tobacco use status CPHS b) No [facility] [address] DO Work Phone: Tobacco Screening. 1-Several days [facility] [address] DO Work Phone: Tobacco Screening. 3-Nearly every day [facility] [address] DO Work Phone: Tobacco Screening. 0-Not at all [facility] [address] DO Work Phone: Tobacco Screening. Somewhat Difficult [facility] [address] DO Work Phone: STR cardiac stress/lexiscano n 06-09-2023 STR cardiac stress/lexiscan [facility] [place] [address] Cardiac Stress Test Signed Patient: Mary Leal MR#: [id number] 863 : 1970 Acct:[id number] Age/Sex: 53 / F ADM Date: 06/05/23 Loc: Room: Type: [facility] Attending Dr: Copies to: DO Marielle Soto MD, [facility] Ordering Provider: Anibal Valle DO Date of [...] 06/09/23 1614 Dictated By: Marielle Scruggs MD, [facility] 06/09/23 1550 Signed By: 06/10/23 0903 Normal [facility] Behavioral Health Telemedici neon 06-08-2023 Behavioral Health Telemedicine [id number] Mary Leal 1970 F Date Provider Department Center 06/08/2023 TamiANDREWGIANA [facility] PSYCH Gerardo Heal No family history on file Level of Service:21631 MS OFFICE/OUTPATIENT ESTABLISHED MOD MDM 30-39 MIN Reason for Visit and Comments: Telehealth Audio/video Visit [871] Normal [facility] NM mirtha perf SPECT rest stron 06-08-2023 NM mirtha perf SPECT rest str [place] [place] [address] Nuclear Medicine Report Signed Patient: Mary Leal MR#: [id number] 863 : 1970 Acct:[id number] Age/Sex: 53 / F ADM Date: 06/05/23 Loc: ER Room: Type: [facility] ER Attending Dr: Copies to: DO Marielle Soto MD, [facility] Ordering Provider: Anibal Valle DO Date [...] 06/08/23 1659 Dictated By: Marielle Scruggs MD, [facility] 06/08/23 1540 Signed By: 06/09/23 1532 Normal [facility] 36on 06-05-2023 36 Patient calls wonder ing about her calprotectin being high. Please advise Normal [facility] Activated partial thrombopla stin time (aPTT) in platelet poor plasma by coagulation aOrdered By: Anibal Valle on 06-05-2023 aPTT Coag (PPP) [Time] 28.0 s 25.1-36.5 [facility] B-Type Natriuretic Peptideon 06-05-2023 Natriuretic peptide B (Bld) [Mass/Vol] 39.0 pg/mL Normal 5-100 [facility] Comment on above: Result Comment: PERF ORMED BY: [facility] [address] [place] [address] PATHOLOGIST INSTRUCTIONAL TECHNOLOGY INSTRUCTOR LEVAR CASE M.D. Performed By: #### H S TROP, BNP, BMP, CBC, PTT, PT ####[place] [id number] [address] Basic Metabolic Panelon 05-08 Anion gap [Moles/Vol] 10.6 mmol/L Normal 6.0-15.0 [facility] Comment on above: Performed By: #### H S TROP, BNP, BMP, CBC, PTT, PT ####[place] [id number] [facility] Calcium [Mass/Vol] 9.0 mg/dL Normal 8.6-10.3 [facility] Comment on above: Performed By: #### H S TROP, BNP, BMP, CBC, PTT, PT ####[place] [id number] [facility] Chloride [Moles/Vol] 108 mmol/L High 98-107 [facility] Comment on above: Performed By: #### H S TROP, BNP, BMP, CBC, PTT, PT ####[place] [id number] [facility] CO2 [Moles/Vol] 23.2 mmol/L Normal 21.0-31.0 [facility] Comment on above: Performed By: #### H S TROP, BNP, BMP, CBC, PTT, PT ####[facility] [place] [id number] [facility] Creatinine [Mass/Vol] 0.67 mg/dL Normal 0.60-1.20 [facility] Comment on above: Performed By: #### H S TROP, BNP, BMP, CBC, PTT, PT ####[place] [address] [place] [address] [place] Creatinine Clr Calc Pharmacy 97.82 [facility] Comment on above: Result Comment: PERF ORMED BY: [facility] [address] [place] [address] PATHOLOGIST INSTRUCTIONAL TECHNOLOGY INSTRUCTOR LEVAR CASE M.D. Performed By: #### H S TROP, BNP, BMP, CBC, PTT, PT ####[place] [address] [place] [id number] [facility] GFR/1.73 sq M.predicted MDRD (S/P/Bld) [Vol rate/Area] mL/min/{1.73_m2} [facility] Comment on above: Performed By: #### H S TROP, BNP, BMP, CBC, PTT, PT ####[place] [address] [place] [id number] [facility] Glucose [Mass/Vol] 106 mg/dL High 70-100 [facility] Comment on above: Result Comment: [place] Glucose Reference Range is dependent on time and content of last meal. Glucose of more than 200 mg/dL in a nonstressed, ambulatory subject supports the diagnosis of Diabetes Mellitus. ADA recommended reference range Performed By: #### H S TROP, BNP, BMP, CBC, PTT, PT ####[place] [address] [place] [id number] [facility] Potassium [Moles/Vol] 3.8 mmol/L Normal 3.5-5.1 [facility] Comment on above: Performed By: #### H S TROP, BNP, BMP, CBC, PTT, PT ####[facility] [id number] [place] [address] [facility] Sodium [Moles/Vol] 138 mmol/L Normal 136-145 [facility] Comment on above: Performed By: #### H S TROP, BNP, BMP, CBC, PTT, PT ####[facility] [id number] [place] [address] [facility] Urea nitrogen [Mass/Vol] 10 mg/dL Normal 7-25 [facility] Comment on above: Performed By: #### H S TROP, BNP, BMP, CBC, PTT, PT ####[facility] [place] [address] [facility] Basophils Auto (Bld) [#/Vol] Ordered By: Anibal Valle on 06-05-2023 Basophils (Bld) [#/Vol] 0.0 10*3/uL 0.0-0.2 [facility] Basophils/100 WBC Auto (Bld) Ordered By: Anibal Valle on 06-05-2023 Basophils/100 WBC (Bld) 0.4 % . [facility] Calcium [Mass/volume] in Ser um or PlasmaOrdered By: Anibal Valle on 06-05-2023 Calcium [Mass/Vol] 9.0 mg/dL 8.6-10.3 [facility] Carbon dioxide, total [Moles /volume] in Serum or PlasmaOrdered By: Anibal Valle on 06-05-2023 CO2 [Moles/Vol] 23.2 mmol/L 21.0-31.0 [facility] Chloride [Moles/volume] in S jay or PlasmaOrdered By: Anibal Valle on 06-05-2023 Chloride [Moles/Vol] 108 mmol/L 98-107 [facility] Complete Blood Count Auto Di ffon 06-05-2023 Basophils (Bld) [#/Vol] 0.0 10*3/uL Normal 0.0-0.2 [facility] Comment on above: Result Comment: PERF ORMED BY: [facility] [address] [place] [address] PATHOLOGIST INSTRUCTIONAL TECHNOLOGY INSTRUCTOR JIANLAN SUN M.D. Performed By: #### H S TROP, BNP, BMP, CBC, PTT, PT #### [address] Basophils/100 WBC (Bld) 0.4 % Normal . [facility] Comment on above: Performed By: #### H S TROP, BNP, BMP, CBC, PTT, PT #### [address] Eosinophils (Bld) [#/Vol] 0.1 10*3/uL Normal 0.0-0.45 [facility] Comment on above: Performed By: #### H S TROP, BNP, BMP, CBC, PTT, PT #### [address] Eosinophils/100 WBC (Bld) 1.9 % Normal . [facility] Comment on above: Performed By: #### H S TROP, BNP, BMP, CBC, PTT, PT #### [address] Erythrocyte distribution width (RBC) [Ratio] 13.9 % Normal 11.9-15.3 [facility] Comment on above: Performed By: #### H S TROP, BNP, BMP, CBC, PTT, PT #### [address] Hematocrit (Bld) [Volume fraction] 34.4 % Normal 34.0-46.4 [facility] Comment on above: Performed By: #### H S TROP, BNP, BMP, CBC, PTT, PT #### [address] Hemoglobin (Bld) [Mass/Vol] 11.9 g/dL Normal 11.8-15.4 [facility] Comment on above: Performed By: #### H S TROP, BNP, BMP, CBC, PTT, PT #### [address] Lymphocytes (Bld) [#/Vol] 1.8 10*3/uL Normal 1.00-4.8 [facility] Comment on above: Performed By: #### H S TROP, BNP, BMP, CBC, PTT, PT #### [address] Lymphocytes/100 WBC (Bld) 41.0 % Normal . [facility] Comment on above: Performed By: #### H S TROP, BNP, BMP, CBC, PTT, PT #### [address] MCH (RBC) [Entitic mass] 27.7 pg Normal 24.7-34.3 [facility] Comment on above: Performed By: #### H S TROP, BNP, BMP, CBC, PTT, PT #### [address] MCV (RBC) [Entitic vol] 80.2 fL Normal 80-100 [facility] Comment on above: Performed By: #### H S TROP, BNP, BMP, CBC, PTT, PT #### [address] Mean Corpuscular HGB Conc 34.5 g/dL Normal 32.0-35.0 [facility] Comment on above: Performed By: #### H S TROP, BNP, BMP, CBC, PTT, PT #### [address] Monocytes (Bld) [#/Vol] 0.3 10*3/uL Normal 0.0-0.8 [facility] Comment on above: Performed By: #### H S TROP, BNP, BMP, CBC, PTT, PT #### [address] Monocytes/100 WBC (Bld) 24.18 % High 0.00-20.00 [facility] Comment on above: Result Comment: For adults in ED, MDW > 20.0 may be associated with a higher risk of sepsis during the first 12 hrs of hospital admission Performed By: #### H S TROP, BNP, BMP, CBC, PTT, PT #### [address] Monocytes/100 WBC (Bld) 7.5 % Normal . [facility] Comment on above: Performed By: #### H S TROP, BNP, BMP, CBC, PTT, PT #### [address] Neutrophils (Bld) [#/Vol] 2.2 10*3/uL Normal 1.8-7.7 [facility] Comment on above: Performed By: #### H S TROP, BNP, BMP, CBC, PTT, PT #### [address] Neutrophils/100 WBC (Bld) 49.2 % Normal . [facility] Comment on above: Performed By: #### H S TROP, BNP, BMP, CBC, PTT, PT #### [address] NRBC% 0.1 /100{WBC} Normal 0-0.5 [facility] Comment on above: Performed By: #### H S TROP, BNP, BMP, CBC, PTT, PT #### [address] Platelet mean volume (Bld) [Entitic vol] 7.4 fL Normal 6.3-10.7 [facility] Comment on above: Performed By: #### H S TROP, BNP, BMP, CBC, PTT, PT #### [address] Platelets (Bld) [#/Vol] 336 10*3/uL Normal 150-450 [facility] Comment on above: Performed By: #### H S TROP, BNP, BMP, CBC, PTT, PT #### [address] RBC (Bld) [#/Vol] 4.29 10*6/uL Normal 3.60-5.00 [facility] Comment on above: Performed By: #### H S TROP, BNP, BMP, CBC, PTT, PT #### [address] WBC (Bld) [#/Vol] 4.4 10*3/uL Normal 3.8-11.6 [facility] Comment on above: Performed By: #### H S TROP, BNP, BMP, CBC, PTT, PT #### [address] Creatinine [Mass/volume] in Serum or PlasmaOrdered By: Anibal Valle on 06-05-2023 Creatinine [Mass/Vol] 0.67 mg/dL 0.60-1.20 [facility] ECG 12 lead ECGon 06-05-2023 ECG 12 lead ECG [facility] Main [place] [address] [place] [address] Electrocardiograph Report Signed Patient: Mary Leal MR#: [id number] 863 : 1970 Acct:[id number] Age/Sex: 53 / F ADM Date: 06/05/23 [...] was found Confirmed by ANIBAL VALLE DO ([id number]) on 06/05/2023 4:21:05 PM Referred By: Electronically Signed By:ANIBAL VALLE DO Transcribed By: MUS Signed By Anibal Valle DO 06/05 1621 Normal [facility] ECG 12 lead ECG [facility] [place] [address] Electrocardiograph Report Signed Patient: Mary Leal MR#: [id number] 863 : 1970 Acct:[id number] Age/Sex: 53 / F ADM Date: 06/05/23 [...] was found Confirmed by ANIBAL VALLE DO ([id number]) on 06/05/2023 4:21:06 PM Referred By: Electronically Signed By:ANIBAL VALLE DO Transcribed By: MUS Signed By Anibal Valle DO 06/05 1621 Normal [facility] Eosinophils Auto (Bld) [#/Vo l]Ordered By: Anibal Valle on 06-05-2023 Eosinophils (Bld) [#/Vol] 0.1 10*3/uL 0.0-0.45 [facility] Eosinophils/100 WBC Auto (Bl d)Ordered By: Anibal Valle on 06-05-2023 Eosinophils/100 WBC (Bld) 1.9 % . [facility] Erythrocyte distribution wid th Auto (RBC) [Ratio]Ordered By: Anibal Valle on 06-05-2023 Erythrocyte distribution width (RBC) [Ratio] 13.9 % 11.9-15.3 [facility] Glucose [Mass/volume] in Ser um or PlasmaOrdered By: Anibal Valle on 06-05-2023 Glucose [Mass/Vol] 106 mg/dL 70-100 [facility] Comment on above: ADA recommended refe rence rangeRandom Glucose Reference Range is dependent on time and content of last meal. Glucose of more than 200 mg/dL in a nonstressed, ambulatory subject supports the diagnosis of Diabetes Mellitus. Hematocrit Auto (Bld) [Volum e fraction]Ordered By: Anibal Valle on 06-05-2023 Hematocrit (Bld) [Volume fraction] 34.4 % 34.0-46.4 [facility] Hemoglobin [Mass/volume] in BloodOrdered By: Anibal Valle on 06-05-2023 Hemoglobin (Bld) [Mass/Vol] 11.9 g/dL 11.8-15.4 [facility] Laboratory - CoagulationOrde red By: Anibal Valle on 06-05-2023 PT Coag (PPP) [Time] 12.0 s 9.0-12.9 [facility] Leukocytes [#/volume] correc herbert for nucleated erythrocytes in Blood by Automated counOrdered By: Anibal Valle on 06-05-2023 WBC corrected for nucl RBC Auto (Bld) [#/Vol] 4.4 10*3/uL 3.8-11.6 [facility] Lymphocytes Auto (Bld) [#/Vo l]Ordered By: Anibal Valle on 06-05-2023 Lymphocytes (Bld) [#/Vol] 1.8 10*3/uL 1.00-4.8 [facility] Lymphocytes/100 WBC Auto (Bl d)Ordered By: Anibal Valle on 06-05-2023 Lymphocytes/100 WBC (Bld) 41.0 % . [facility] MCH Auto (RBC) [Entitic mass ]Ordered By: Anibal Valle on 06-05-2023 MCH (RBC) [Entitic mass] 27.7 pg 24.7-34.3 [facility] MCHC Auto (RBC) [Mass/Vol]Or dered By: Anibal Valle on 06-05-2023 MCHC (RBC) [Mass/Vol] 34.5 g/dL 32.0-35.0 [facility] MCV Auto (RBC) [Entitic vol] Ordered By: Anibal Valle on 06-05-2023 MCV (RBC) [Entitic vol] 80.2 fL 80-100 [facility] Monocyte distribution width [Entitic volume] in Blood by AutomatedOrdered By: Anibal Valle on 06-05-2023 Monocyte distribution width Auto (Bld) [Entitic vol] 24.18 % 0.00-20.00 [facility] Comment on above: For adults in ED, MD W > 20.0 may be associated with a higher risk of sepsis during the first 12 hrs of hospital admission Monocytes Auto (Bld) [#/Vol] Ordered By: Anibal Valle on 06-05-2023 Monocytes (Bld) [#/Vol] 0.3 10*3/uL 0.0-0.8 [facility] Monocytes/100 WBC Auto (Bld) Ordered By: Anibal Valle on 06-05-2023 Monocytes/100 WBC (Bld) 7.5 % . [facility] Natriuretic peptide B [Mass/ Vol]Ordered By: Anibal Valle on 06-05-2023 Natriuretic peptide B (Bld) [Mass/Vol] 39.0 pg/mL 5-100 [facility] Neutrophils Auto (Bld) [#/Vo l]Ordered By: Anibal Valle on 06-05-2023 Neutrophils (Bld) [#/Vol] 2.2 10*3/uL 1.8-7.7 [facility] Neutrophils/100 WBC Auto (Bl d)Ordered By: Anibal Valle on 06-05-2023 Neutrophils/100 WBC (Bld) 49.2 % . [facility] No Panel InformationOrdered By: Anibal Valle on 06-05-2023 Estimated GFR (CKD-EPI) > 60.0 mL/Min [facility] Creatinine Clearance (Chem 97.82 [facility] Nucleated erythrocytes [Pres ence] in Blood by Automated countOrdered By: Anibal Valle on 06-05-2023 Nucleated RBC Auto Ql (Bld) 0.1 /100{WBC} 0-0.5 [facility] Partial Thromboplastin Timeo n 06-05-2023 aPTT Coag (Bld) [Time] 28.0 s Normal 25.1-36.5 [facility] Comment on above: Result Comment: PERF ORMED BY: [facility] [address] [place] [address] PATHOLOGIST INSTRUCTIONAL TECHNOLOGY INSTRUCTOR LEVAR CASE M.D. Performed By: #### H S TROP, BNP, BMP, CBC, PTT, PT ####[facility] [id number] [place] [id number] [facility] Platelet mean volume Auto (B ld) [Entitic vol]Ordered By: Anibal Valle on 06-05-2023 Platelet mean volume (Bld) [Entitic vol] 7.4 fL 6.3-10.7 [facility] Platelet poor plasma interna tional normalized ratio (INR) by coagulation assay (relatOrdered By: Anibal Valle on 06-05-2023 INR Coag (PPP) [Relative time] 1.0 {INR} [facility] Comment on above: INR Therapeutic Rang e [...] Platelets (Bld) [#/Vol] 336 10*3/uL 150-450 [facility] Potassium [Moles/volume] in Serum or PlasmaOrdered By: Anibal Valle on 06-05-2023 Potassium [Moles/Vol] 3.8 mmol/L 3.5-5.1 [facility] Prothrombin Time INRon 06-05 INR Coag (PPP) [Relative time] 1.0 {INR} Normal [facility] Comment on above: Result Comment: INR Therapeutic [...] TROP, BNP, BMP, CBC, PTT, PT #### [facility] [address] PT Coag (PPP) [Time] 12.0 s Normal 9.0-12.9 [facility] Comment on above: Performed By: #### H S TROP, BNP, BMP, CBC, PTT, PT #### [facility] [address] RBC Auto (Bld) [#/Vol]Ordere d By: Anibal Valle on 06-05-2023 RBC (Bld) [#/Vol] 4.29 10*6/uL 3.60-5.00 [facility] Serum or plasma anion gap de terminationOrdered By: Anibal Valle on 06-05-2023 Anion gap [Moles/Vol] 10.6 mmol/L 6.0-15.0 [facility] Sodium [Moles/volume] in Ser um or PlasmaOrdered By: Anibal Valle on 06-05-2023 Sodium [Moles/Vol] 138 mmol/L 136-145 [facility] Troponin I High Sensitivityo n 06-05-2023 Troponin I High Sensitivity 2.5 pg/mL Normal 0.0-15.0 [facility] Comment on above: Result Comment: PERF ORMED BY: [facility] [address] [place] [address] PATHOLOGIST INSTRUCTIONAL TECHNOLOGY INSTRUCTOR LEVAR CASE M.D. Performed By: #### H S TROP #### [facility] [address] Troponin I High Sensitivity 2.6 pg/mL Normal 0.0-15.0 [facility] Comment on above: Result Comment: PERF ORMED BY: [facility] [address] [place] [address] PATHOLOGIST INSTRUCTIONAL TECHNOLOGY INSTRUCTOR LEVAR CASE M.D. Performed By: #### H S TROP, BNP, BMP, CBC, PTT, PT ####[facility] [address] [place] [id number] [facility] Troponin I.cardiac [Mass/vol ume] in Serum or Plasma by Detection limit <= 0.01 ng/Ordered By: Anibal Valle on 06-05-2023 Troponin I.cardiac DL <= 0.01 ng/mL [Mass/Vol] 2.6 pg/mL 0.0-15.0 [facility] Urea nitrogen [Mass/volume] in Serum or PlasmaOrdered By: Anibal Valle on 06-05-2023 Urea nitrogen [Mass/Vol] 10 mg/dL 7-25 [facility] WBC Auto (Bld) [#/Vol]Ordere d By: Anibal Valle on 06-05-2023 WBC (Bld) [#/Vol] 4.4 10*3/uL 3.8-11.6 [facility] XR chest 1V portableon 06-05 XR chest 1V portable [facility] [place] [address] XRay Report Signed Patient: Mary Leal MR#: [id number] : 1970 Acct:[id number] Age/Sex: 53 / F ADM Date: 06/05/23 [...] Andres Bullard M.D.06/05/2023 9:53 AM Dictation Location: [place] [address] Transcribed By: [facility] 06/05/23952 Dictated By: Andres Bullard DO 06/05/23 0952 Signed By: 06/05/23 0953 Normal [facility] 29on 05-31-2023 29 Addended by: KASSANDRA MONTAGUE on: 06/13/2023 03:40 PM Modules accepted: Orders Normal [facility] BASIC METABOLIC PANELon 07-2 Anion gap [Moles/Vol] 12 mmol/L Normal 7-20 [facility] Comment on above: Performed By: #### L [id number] #### [facility] (BEAKER) [address] [place] [address] Calcium [Mass/Vol] 9.8 mg/dL Normal 8.6-10.3 [facility] Comment on above: Performed By: #### L [id number] #### [facility] ([facility]) [address] [place] [address] Chloride [Moles/Vol] 105 mmol/L Normal 98-107 [facility] Comment on above: Performed By: #### L [id number] #### [facility] ([facility]) [address] [place] [address] CO2 [Moles/Vol] 27 mmol/L Normal 21-31 [facility] Comment on above: Performed By: #### L [id number] #### [facility] ([facility]) [address] [place] [address] Creatinine [Mass/Vol] 0.75 mg/dL Normal 0.60-1.20 [facility] Comment on above: Performed By: #### L [id number] #### [facility] ([facility]) [address] [place] [address] GLOMERULAR FILTRATION RATE ML/MIN/1.73 SQ M.PREDICTED 96.3 mL/min/1.73m*2 Normal >60.[address] [facility] Comment on above: Result Comment: [facility]???s estimated glomerular filtration rate (eGFR) will [...] individuals. Performed By: #### L [id number] #### [facility] ([facility]) [address] [place] [address] Glucose [Mass/Vol] 103 mg/dL High 70-100 [facility] Comment on above: Performed By: #### L [id number] #### [facility] ([facility]) [address] [place] [address] Potassium [Moles/Vol] 4.6 mmol/L Normal 3.5-5.1 [facility] Comment on above: Performed By: #### L [id number] #### [facility] ([facility] [address] [place] [address] Sodium [Moles/Vol] 139 mmol/L Normal 136-145 [facility] Comment on above: Performed By: #### L [id number] #### [facility] ([facility]) [address] [place] [address] Urea nitrogen [Mass/Vol] 16 mg/dL Normal 7-25 [facility] Comment on above: Performed By: #### L [id number] #### [facility] ([facility]) [address] [place] [address] UREA NITROGEN/CREATININE (MASS RATIO) IN SER/PLAS 21.3 Normal [facility] Comment on above: Performed By: #### L [id number] #### [facility] ([facility]) [address] [place] [address] C-REACTIVE PROTEINon 023 C REACTIVE PROTEIN (MG/L) IN SER/PLAS 2.7 mg/L Normal 0.0-7.0 [facility] Comment on above: Performed By: #### L [id number] #### [facility] ([facility]) [address] [place] [address] CALPROTECTIN STOOLon 023 CALPROTECTIN, FECAL 171 ug/g High <=49 [facility] Comment on above: Result Comment: REFE RENCE INTERVAL: Calprotectin, Fecal by Immunoassay Less than 50 ug/g.........Normal 50-120 ug/g...............Borderline elevated, test should be re-evaluated in 4-6 weeks. 121 ug/g or greater.......Elevated Performed By: [employer] [address] [place] [address] Dredge Pipe Installer: Moisés Moraeu MD, PhD Performed By: #### L [id number] #### [facility] ([facility]) [address] [place] [address] CBC WITH AUTO DIFFERENTIALon 05-31-2023 Basophils (Bld) [#/Vol] 0.06 10*3/uL Normal 0.00-0.20 [facility] Comment on above: Performed By: #### L [id number] #### [facility] (BEAKER) [address] [place] [address] Basophils/100 WBC (Bld) 0.9 % Normal 0.0-1.0 [facility] Comment on above: Performed By: #### L [id number] #### [facility] (BEAKER) [address] [place] [address] Eosinophils (Bld) [#/Vol] 0.09 10*3/uL Normal 0.00-0.50 [facility] Comment on above: Performed By: #### L [id number] #### [facility] (BEAKER) [address] [place] [address] Eosinophils/100 WBC (Bld) 1.4 % Normal 0.0-6.0 [facility] Comment on above: Performed By: #### L [id number] #### [facility] ([facility]AKER) [address] [place] [address] Erythrocyte distribution width (RBC) [Ratio] 12.7 % Normal 11.5-15.0 [facility] Comment on above: Performed By: #### L [id number] #### [facility] ([facility]AKER) [address] [place] [address] ERYTHROCYTE MEAN CORPUSCULAR HEMOGLOBIN CONCENTRATION (G/DL) BY AUTOMATED 32.2 g/dL Normal 32.0-35.0 [facility] Comment on above: Performed By: #### L [id number] #### [facility] ([facility]AKER) [address] [place] [address] Hematocrit (Bld) [Volume fraction] 37.9 % Normal 36.0-48.0 [facility] Comment on above: Performed By: #### L [id number] #### [facility] ([facility]AKER) [address] [facility] [address] Hemoglobin (Bld) [Mass/Vol] 12.2 g/dL Normal 12.0-15.0 [facility] Comment on above: Performed By: #### L [id number] #### [facility] ([facility]) [address] [place] [address] Immature granulocytes (Bld) [#/Vol] 0.02 10*3/uL Normal 0.00-0.20 [facility] Comment on above: Performed By: #### L [id number] #### [facility] ([facility]) [address] [place] [address] Immature granulocytes/100 WBC (Bld) 0.3 % Normal 0.0-1.0 [facility] Comment on above: Performed By: #### L [id number] #### [facility] ([facility]) [address] [place] [address] Lymphocytes (Bld) [#/Vol] 2.04 10*3/uL Normal 1.20-4.00 [facility] Comment on above: Performed By: #### L [id number] #### [facility] ([facility]) [address] [place] [address] Lymphocytes/100 WBC (Bld) 31.9 % Normal 20.0-45.0 [facility] Comment on above: Performed By: #### L [id number] #### [facility] ([facility]) [address] [place] [address] MCH (RBC) [Entitic mass] 27.0 pg Normal 27.0-33.0 [facility] Comment on above: Performed By: #### L [id number] #### [facility] ([facility]) [address] [place] [address] MCV (RBC) [Entitic vol] 83.8 fL Normal 82.0-98.0 [facility] Comment on above: Performed By: #### L [id number] #### [facility] ([facility] [address] [place] [address] Monocytes (Bld) [#/Vol] 0.35 10*3/uL Normal 0.10-1.00 [facility] Comment on above: Performed By: #### L [id number] #### [facility] ([facility]AKER) [address] [place] [address] Monocytes/100 WBC (Bld) 5.5 % Normal 5.0-12.0 [facility] Comment on above: Performed By: #### L [id number] #### [facility] ([facility]) [address] [place] [address] Neutrophils (Bld) [#/Vol] 3.83 10*3/uL Normal 1.60-7.60 [facility] Comment on above: Performed By: #### L [id number] #### [facility] ([facility]) [address] [place] [address] Neutrophils/100 WBC (Bld) 60.0 % Normal 40.0-72.0 [facility] Comment on above: Performed By: #### L [id number] #### [facility] ([facility]) [address] [place] [address] NRBC (PER 100 WBCS) BY AUTOMATED COUNT 0.0 % Normal 0 [facility] Comment on above: Performed By: #### L [id number] #### [facility] ([facility]) [address] [place] [address] PLATELETS (10*3/UL) IN BLOOD AUTOMATED COUNT 485 10*3/uL High 150-400 [facility] Comment on above: Performed By: #### L [id number] #### [facility] ([facility]AKER) [address] [place] [address] RBC (Bld) [#/Vol] 4.52 10*6/uL Normal 3.80-5.00 [facility] Comment on above: Performed By: #### L [id number] #### [facility] ([facility]AKER) [address] [place] [address] WBC (Bld) [#/Vol] 6.39 10*3/uL Normal 4.00-10.60 [facility] Comment on above: Performed By: #### L [id number] #### [facility] ([facility]) [address] [place] [address] ENTERIC BACTERIA, LIMITED PA RASITE DNA PANELon 05-31-2023 CAMPYLOBACTER SPECIES Negative Normal Negative [facility] Comment on above: Order Comment: Testi [...] the amplified DNA. Performed By: #### L [id number] ####[facility] ([facility])[address] [place] [address] CRYPTOSPORIDIUM (HOMINIS AND PARVUM) Negative Normal Negative [facility] [...] the amplified DNA. Performed By: #### L [id number] ####[facility] ([facility])[address] [place] [address] ENTAMOEBA HISTOLYTICA Negative Normal Negative [facility] Comment on above: Order [...] the amplified DNA. Performed By: #### L [id number] ####[facility] ([facility])[address] [place] [address] ENTEROTOXIGENIC E. COLI (ETEC) LT/ST Negative Normal Negative [facility] [...] the amplified DNA. Performed By: #### L [id number] ####[facility] (BEAKER)[address] [place] [address] GIARDIA LAMBLIA Negative Normal Negative [facility] Comment on above: Order [...] the amplified DNA. Performed By: #### L [id number] ####[facility] (BEAKER)[address] [place] [address] PLESIOMONAS SHIGELLOIDES Negative Normal Negative [facility] [...] the amplified DNA. Performed By: #### L [id number] ####[facility] (BEAKER)[address] [place] [address] SALMONELLA SPECIES Negative Normal Negative [facility] Comment on above: Order Comment: Testi [...] the amplified DNA. Performed By: #### L [id number] ####[facility] (BEAKER)[address] [place] [address] SHIGA-LIKE TOXIN-PRODUCING E. COLI (STEC) STX1/STX2 Negative Normal Negative [facility] [...] the amplified DNA. Performed By: #### L [id number] ####[facility] (BEAKER)[address] [place] [address] SHIGELLA SPECIES Negative Normal Negative [facility] Comment on above: Order Comment: Testi [...] the amplified DNA. Performed By: #### L [id number] ####[facility] ([facility])[address] [place] [address] VIBRIO SPECIES Negative Normal Negative [facility] [...] the amplified DNA. Performed By: #### L [id number] ####[facility] ([facility] [place] [address] YERSINIA ENTEROCOLITICA Negative Normal Negative [facility] [...] the amplified DNA. Performed By: #### L [id number] ####[facility] ([facility] [place] [address] IGAon 05-31-2023 Magnesium [Mass/Vol] 265 mg/dL Normal 60-413 [facility] Comment on above: Performed By: #### L [id number] #### [facility] (BEAKER) [address] [place] [address] Labon 05-31-2023 Lab [id number] Darrian Leal en 1970 Date Provider Department [place] 05/31/2023 2244-[facility] MP LAB RESOURCE MP DRAW Medical Pavi No family history on file Normal [facility] Office Visiton 05-31-2023 Follow-up visit [id number] Darrian Leal en 1970 Date Provider Department [place] 05/31/2023 137-[place], [place] MP GI Medical Pavi No family history on file Level of Service:83584 MS OFFICE/OUTPATIENT NEW MODERATE MDM 45-59 MINUTES Reason for Visit and Comments: Nausea [70] GERD [420485] Abdominal Pain [521511] New Patient [632] Normal [facility] PANCREATIC ELASTASE, FECALon 05-31-2023 PANCREATIC ELASTASE, FECAL 700 ug/g Normal >=100 [facility] Comment on above: Result Comment: REFE RENCE INTERVAL: Pancreatic Elastase Fecal by Immunoassay Less than 100 ug/g............Severe insufficiency 100 - 199 ug/g................Moderate insufficiency 200 ug/g or greater...........Normal INTERPRETIVE INFORMATION: Pancreatic Elastase Fecal by Immunoassay Reference intervals do not apply for infants less than one month old. Performed by [employer], [address] [place] [id number] [email or web address], Moisés Moreau MD, PHD, Lab. Director Performed By: #### L [id number] #### [facility] (BEAKER) [address] [place] [address] SEDIMENTATION RATEon 023 SEDIMENTATION RATE, ERYTHROCYTE 13 mm/hr Normal <=20 [facility] Comment on above: Performed By: #### L [id number] #### [facility] (BEAKER) [address] [facility] [place] [address] TISSUE TRANSGLUTAMINASE, IGA on 05-31-2023 TISSUE TRANSGLUTAMINASE, IGA <2 Normal 0-3 [facility] Comment on above: Result Comment: INTE [...] positive predictive value for disease. Performed By: [employer] [address] [place] [address] Dredge Pipe Installer: Moisés Moreau MD, PhD Performed By: #### L [id number] #### [facility] (BEAKER) [address] [place] [address] [place] 05-27-2023 Refill [id number] Denver Lealist en 1970 F Date Provider Department [place] 05/27/2023 GIANA JAMES [facility] PSYCH Gerardo Heal No family history on file Reason for Visit and Comments: Med Refill [265571] Normal [facility] Behavioral Health Telemedici neon 05-22-2023 Behavioral Health Telemedicine [id number] Denver Lealisten 1970 F Date Provider Department [place] 05/22/2023 [id number]-NFGBRADHA CASTREJON [facility] BH Gerardo Heal No family history on file Reason for Visit and Comments: Anxiety [9] Pain [136] Normal [facility] Orders Onlyon 05-18-2023 Orders Only [id number] ElvisKrist en 1970 F Date Provider Department [place] 05/18/20[address] GIANA [address]AMES [facility] PSYCH Gerardo Heal No family history on file Normal [facility] Behavioral Health Telemedici neon 05-17-2023 Behavioral Health Telemedicine [id number] Elvis,Mary 1970 F Date Provider Department [place] 05/17/20[address] GIANA JAMES [facility] PSYCH Gerardo Heal No family history on file Level of Service:03955 MS OFFICE/OUTPATIENT ESTABLISHED MOD MDM 30-39 MIN Reason for Visit and Comments: Telehealth Audio/video Visit [871] [facility] Behavioral Health Telemedicine [id number] Darrian Lealen 1970 Provider Department [place] 05/17/2023 56256-ENQT RADHA [facility] Gerardo Heal No family history on file Reason for Visit and Comments: Anxiety [9] MDD (Major Depressive Disorder) [401] [facility] Behavioral Health Telemedici neon 04-17-2023 Behavioral Health Telemedicine [id number] Darrian Lealen 1970 Provider Department [place] 04/17/2023 CARMEN CHRISTIANSON [facility] Gerardo [facility] No family history on file Reason for Visit and Comments: Therapy [849] Telehealth Audio/video Visit [871] - Via Web[employer] [facility] Documentationon 04-14-2023 Documentation [id number] Darrian Leal jonathan 1970 Provider Department [place] 04/14/[address] [facility] No family history on file Reason for Visit and Comments: Transfer summary [Other] - Transferring therapy services [facility] Behavioral Health Telemedici neon 04-10-2023 Behavioral Health Telemedicine [id number] Darrian Lealen 1970 Provider Department [place] 04/10/2023 CARMEN CHRISTIANSON [facility] Gerardo [facility] No family history on file Reason for Visit and Comments: Therapy [849] [facility] CBC AUTO DIFFon 04-05-2023 BASO # 0.0 103/ul Normal 0.0-0.1 [facility] Comment on above: Performed By: #### L ACT #### [facility] [address] [place] [address] [address] Mirian Velasco Basophils/100 WBC (Bld) 0.8 % Normal 0.2-2.0 [facility] Comment on above: Performed By: #### L ACT #### [facility] [address] [place] [address] Dr. Mirian Velasco EO # 0.1 103/ul Normal 0.0-0.7 [facility] Comment on above: Performed By: #### L ACT #### [facility] [address] [place] [address] Dr. Mirian Velasco Eosinophils/100 WBC (Bld) 1.1 % Normal 0.9-7.0 [facility] Comment on above: Performed By: #### L ACT #### [facility] [address] [place] [address] Dr. Mirian Velasco Erythrocyte distribution width (RBC) [Ratio] 13.1 % Normal 11.0-15.0 [facility] Comment on above: Performed By: #### L ACT #### [facility] [address] [place] [address] Dr. Mirian Velasco Hematocrit (Bld) [Volume fraction] 37.6 % Normal 36.0-48.0 [facility] Comment on above: Performed By: #### L ACT #### [facility] [address] [place] [address] Dr. Mirian Velasco Hemoglobin (Bld) [Mass/Vol] 12.4 g/dL Normal 12.0-16.0 [facility] Comment on above: Performed By: #### L ACT #### [facility] [address] [place] [address] Dr. Mirian Velasco IG # 0.01 10e3/ul Normal 0.00-0.03 [facility] Comment on above: Performed By: #### L ACT #### [facility] [address] [place] [address] Dr. Mirian Velasco IG % 0.2 % Normal 0.0-0.5 [facility] Comment on above: Performed By: #### L ACT #### [facility] [address] [place] [address] Dr. Mirian Velasco LYMPH # 2.5 103/ul Normal 1.2-3.8 [facility] Comment on above: Performed By: #### L ACT #### [facility] [address] [place] [address] Dr. Mirian Velasco Lymphocytes/100 WBC (Bld) 46.2 % Normal 20.5-60.0 [facility] Comment on above: Performed By: #### L ACT #### [facility] [address] [place] [address] Dr. Mirian Velasco MANUAL DIFF REQ NO Normal [facility] Comment on above: Performed By: #### L ACT #### [facility] [address] [place] [address] Dr. Mirian Velasco MCH (RBC) [Entitic mass] 27.1 pg Normal 26.7-34.0 [facility] Comment on above: Performed By: #### L ACT #### [facility] [address] [place] [address] Dr. Mirian Velasco MCHC (RBC) [Mass/Vol] 33.0 g/dL Normal 29.9-35.2 [facility] Comment on above: Performed By: #### L ACT #### [facility] [address] [place] [address] Dr. Mirian Velasco MCV (RBC) [Entitic vol] 82.3 fL Normal 81.0-99.0 [facility] Comment on above: Performed By: #### L ACT #### [facility] [address] [place] [address] Dr. Mirian Velasco MONO # 0.4 103/ul Normal 0.3-0.8 [facility] Comment on above: Performed By: #### L ACT #### [facility] [address] [place] [address] Dr. Mirian Velasco Monocytes/100 WBC (Bld) 7.9 % Normal 1.7-12.0 [facility] Comment on above: Performed By: #### L ACT #### [facility] [address] [place] [address] Dr. Mirian Velasco NEUT # 2.3 103/ul Normal 1.4-6.5 [facility] Comment on above: Performed By: #### L ACT #### [facility] [address] [place] [address] Dr. Mirian Velasco Neutrophils/100 WBC (Bld) 43.8 % Normal 43.0-75.0 [facility] Comment on above: Performed By: #### L ACT #### [facility] [address] [address] [address] Mirian Velasco Platelet mean volume (Bld) [Entitic vol] 9.2 fL Critically low 9.5-13.5 [facility] Comment on above: Performed By: #### L ACT #### [facility] [address] [address] [address] Mirian Velasco PLT 318 103/ul Normal 150-450 [facility] Comment on above: Performed By: #### L ACT #### [facility] [address] [address] [address] Mirian Velasco RBC 4.57 106/ul Normal 4.20-5.40 [facility] Comment on above: Performed By: #### L ACT #### [facility] [address] [address] [address] Mirian Velasco WBC 5.3 103/ul Normal 4.0-11.0 [facility] Comment on above: Performed By: #### L ACT #### [facility] [address] [address] [address] Mirian Velasco PROF CHEM 8 (BAS METB)on Anion gap [Moles/Vol] 19.0 mmol/L Normal [facility] Comment on above: Performed By: #### H FAUSTO, BMP ####[facility] [address] [address]Dr. Mirian Velasco Calcium [Mass/Vol] 9.6 mg/dL Normal 8.5-10.1 [facility] Comment on above: Performed By: #### H ELENAPN, BMP ####[facility] [address] [id number]. Mirian Velasco Chloride [Moles/Vol] 103 mmol/L Normal 98-107 [facility] Comment on above: Performed By: #### H ELENAPN, BMP ####[facility] [address] [address]Dr. Mirian Velasco CO2 [Moles/Vol] 23.1 mmol/L Normal 21.0-32.0 [facility] Comment on above: Performed By: #### Sukumar LAMBERT, BMP ####[facility] [address] [address]Dr. Mirian Velasco Creatinine [Mass/Vol] 0.84 mg/dL Normal 0.55-1.02 [facility] Comment on above: Performed By: #### Sukumar LAMBERT, BMP ####[facility] [address] [address]Dr. Mirian Velasco EGFR-AF [place] ISLANDER >60 Normal >=60 [facility] Comment on above: Performed By: #### Sukumar LAMBERT, BMP ####[facility] [address] [address]Dr. Mirian Velasco EGFR-NON AF [place]ER >60 Normal >=60 [facility] Comment on above: Performed By: #### Sukumar LAMBERT, BMP ####[facility] [address] [address]Dr. Mirian Velasco Glucose [Mass/Vol] 129 mg/dL Critically high 74-106 [facility] Comment on above: Performed By: #### Sukumar LAMBERT, BMP ####[facility] [address] [address]Dr. Mirian Velasco Potassium [Moles/Vol] 3.1 mmol/L Critically low 3.5-5.1 [facility] Comment on above: Performed By: #### Sukumar LAMBERT, BMP ####[facility] [address] [address]Dr. Mirian Velasco Sodium [Moles/Vol] 142 mmol/L Normal 136-145 [facility] Comment on above: Performed By: #### Sukumar LAMBERT, BMP ####[facility] [address] [address]Dr. Mirian Velasco Urea nitrogen [Mass/Vol] 12.0 mg/dL Normal 7.0-18.0 [facility] Comment on above: Performed By: #### Sukumar LAMBERT, BMP ####[facility] [address] [place], [place] [address]Zj. Mirian Velasco Urea nitrogen/Creatinine [Mass ratio] 14.3 mg/mg Normal [facility] Comment on above: Performed By: #### H FAUSTO, SEGUNDO ####[facility] [address] [place], [place] [address]Pc. Mirian Velasco TROPONIN, HIGH SENSITIVITYon 04-05-2023 HSTROP 5.6 pg/mL Normal 4.0-51.3 [facility] Comment on above: Result Comment: CUT- OFF POINTS HAVE BEEN ESTABLISHED BASED ON THE FOURTH UNIVERSAL DEFINITIONS OF MYOCARDIAL INFARCTION. THE UPPER REFERENCE LIMIT (URL) OF TROPONIN, DEFINED THE 99TH PERCENTILE OF cTnI DISTRIBUTION IN A REFERENCE POPULATION, HAS BEEN CONFIRMED THE DECISION THRESHOLD FOR [place] DIAGNOSIS. Performed By: #### H SEGUNDO LAMBERT ####[facility] [address] [id number]. Mirian Velasco Refillon 03-21-2023 Refill [id number] Darrian Leal 1970 F Date Provider Department Center 03/21/2023 167GIANA JARQUIN [facility] PSYCH Gerardo Heal No family history on file Reason for Visit and Comments: Med Refill [[id number]] Normal [facility] Behavioral Health Telemedici neon 03-20-2023 Behavioral Health Telemedicine [id number] Mary Leal 1970 F Date Provider Department Center 03/20/2023 3941-CARMEN DORSEY [facility] BH Gerardo Heal No family history on file Reason for Visit and Comments: Therapy [849] Normal [facility] FAT, FECAL QUALon 03-16-2023 FAT, FECAL - NEUTRAL Normal Normal Normal [facility] Comment on above: Order Comment: Speci men Type: STOOL SPECIMENOrdering Facility: [facility] Address: [address] [place] [id number] Performed By: #### F FATQL ####[facility] [id number] [place] [address] FAT, FECAL - SPLIT Normal Normal Normal [facility] Comment on above: Order Comment: Speci men Type: STOOL SPECIMENOrdering Facility: [facility] Address: [address], [place] [address] Result Comment: INTE RPRETIVE INFORMATION: Fecal Fat Qualitative Neutral fats include the monoglycerides, diglycerides, and triglycerides while split fats are the free fatty acids that are liberated from them. Impaired synthesis or secretion of pancreatic enzymes or bile may cause an increase in neutral fats while an increase in split fats suggests impaired absorption of nutrients. Performed By: [employer] [address] [place] [address] Dredge Pipe Installer: Moisés Moreau MD, PhD Performed By: #### F FATQL ####[employer] [facility]IES[facility] [id number] [place] [address] [facility] Telemedici belcher 03-06-2023 [facility] Telemedicine [id number] Mary Leal 1970 F Date Provider Department Center 03/06/2023 Keith1CARMEN GALINDO [facility] Gerardo Heal No family history on file Reason for Visit and Comments: Therapy [849] Normal [facility] CBC AUTO DIFFon 03-06-2023 BASO # 0.1 103/ul Normal 0.0-0.1 [facility] Comment on above: Performed By: #### L ACT #### [facility] [address] [place] [address] Dr. Mirian Velasco Basophils/100 WBC (Bld) 0.8 % Normal 0.2-2.0 [facility] Comment on above: Performed By: #### L ACT #### [facility] [address] [place] [address] Dr. Mirian Velasco EO # 0.1 103/ul Normal 0.0-0.7 [facility] Comment on above: Performed By: #### L ACT #### [facility] [address] [address] [address] Mirian Velasco Eosinophils/100 WBC (Bld) 1.4 % Normal 0.9-7.0 [facility] Comment on above: Performed By: #### L ACT #### [facility] [address] [address] [address] Mirian Velasco Erythrocyte distribution width (RBC) [Ratio] 13.1 % Normal 11.0-15.0 [facility] Comment on above: Performed By: #### L ACT #### [facility] [address] [place] [address] Dr. Mirian Velasco Hematocrit (Bld) [Volume fraction] 37.9 % Normal 36.0-48.0 [facility] Comment on above: Performed By: #### L ACT #### [facility] [address] [place] [address] Dr. Mirian Velasco Hemoglobin (Bld) [Mass/Vol] 12.7 g/dL Normal 12.0-16.0 [facility] Comment on above: Performed By: #### L ACT #### [facility] [address] [place] [address] Dr. Mirian Velasco IG # 0.01 10e3/ul Normal 0.00-0.03 [facility] Comment on above: Performed By: #### L ACT #### [facility] [address] [place] [address] Dr. Mirian Velasco IG % 0.2 % Normal 0.0-0.5 [facility] Comment on above: Performed By: #### L ACT #### [facility] [address] [place] [address] Dr. Mirian Velasco LYMPH # 1.8 103/ul Normal 1.2-3.8 [facility] Comment on above: Performed By: #### L ACT #### [facility] [address] [place] [address] Dr. Mirian Velasco Lymphocytes/100 WBC (Bld) 27.2 % Normal 20.5-60.0 [facility] Comment on above: Performed By: #### L ACT #### [facility] [address] [place] [address] Dr. Mirian Velasco MANUAL DIFF REQ NO Normal [facility] Comment on above: Performed By: #### L ACT #### [facility] [address] [place] [address] Dr. Mirian Velasco MCH (RBC) [Entitic mass] 27.5 pg Normal 26.7-34.0 [facility] Comment on above: Performed By: #### L ACT #### [facility] [address] [address] [address] Mirian Velasco MCHC (RBC) [Mass/Vol] 33.5 g/dL Normal 29.9-35.2 [facility] Comment on above: Performed By: #### L ACT #### [facility] [address] [address] [address] Mirian Vleasco MCV (RBC) [Entitic vol] 82.0 fL Normal 81.0-99.0 [facility] Comment on above: Performed By: #### L ACT #### [facility] [address] [address] [address] Mirian Velasco MONO # 0.4 103/ul Normal 0.3-0.8 [facility] Comment on above: Performed By: #### L ACT #### [facility] [address] [address] [address] Mirian Velasco Monocytes/100 WBC (Bld) 5.5 % Normal 1.7-12.0 [facility] Comment on above: Performed By: #### L ACT #### [facility] [address] [address] [address] Mirian Velasco NEUT # 4.3 103/ul Normal 1.4-6.5 [facility] Comment on above: Performed By: #### L ACT #### [facility] [address] [address] [address] Mirian Velasco Neutrophils/100 WBC (Bld) 64.9 % Normal 43.0-75.0 [facility] Comment on above: Performed By: #### L ACT #### [facility] [address] [address] [address] Mirian Velasco Platelet mean volume (Bld) [Entitic vol] 9.4 fL Critically low 9.5-13.5 [facility] Comment on above: Performed By: #### L ACT #### [facility] [address] [address] [address] Mirian Velasco PLT 317 103/ul Normal 150-450 [facility] Comment on above: Performed By: #### L ACT #### [facility] [address] [address] [address] Mirian Velasco RBC 4.62 106/ul Normal 4.20-5.40 [facility] Comment on above: Performed By: #### L ACT #### [facility] [address] [address] [address] Mirian Velasco WBC 6.6 103/ul Normal 4.0-11.0 [facility] Comment on above: Performed By: #### L ACT #### [facility] [address] [address] [address] Mirian Velasco CULTURE BLOODon 03-06-2023 Microscopic examination of blood, culture Culture Observations: NO GROWTH AT 5 DAYS. Normal [facility] Comment on above: Performed By: #### B LDCX2 ####[facility] [address] [address]Dr. Mirian Velasco Microscopic examination of blood, culture Culture Observations: NO GROWTH AT 5 DAYS. Normal [facility] Comment on above: Performed By: #### B LDCX1 #### [facility] [address] [place] [address] Dr. Mirian Velasco LACTATE/LACTIC ACIDon 2022 Lactate [Moles/Vol] 2.2 mmol/L Critically high 0.4-2.0 [facility] Comment on above: Performed By: #### L ACT #### [facility] [address] [place] [address] Dr. Mirian Velasco LIPASEon 03-06-2023 Lipase [Catalytic activity/Vol] 53.0 U/L Critically low 73.0-393.0 [facility] Comment on above: Performed By: #### L ACT #### [facility] [address] [place] [address] Dr. Mirian Velasco PROF 14(COMP METB)on 023 Albumin [Mass/Vol] 3.4 g/dL Normal 3.4-5.0 [facility] Comment on above: Performed By: #### L ACT #### [facility] [address] [place], [place] [id number] Dr. Mirian Velasco Albumin/Globulin [Mass ratio] 1.0 {ratio} Normal [facility] Comment on above: Performed By: #### L ACT #### [facility] [address] [place] [address] Dr. Mirian Velasco ALP [Catalytic activity/Vol] 123 U/L Critically high 46-116 [facility] Comment on above: Performed By: #### L ACT #### [facility] [address] [address] [address] Mirian Velasco ALT [Catalytic activity/Vol] 33 U/L Normal 14-59 [facility] Comment on above: Performed By: #### L ACT #### [facility] [address] [place] [address] Dr. Mirian Velasco Anion gap [Moles/Vol] 13.1 mmol/L Normal [facility] Comment on above: Performed By: #### L ACT #### [facility] [address] [place] [address] Dr. Mirian Velasco AST [Catalytic activity/Vol] 31 U/L Normal 15-37 [facility] Comment on above: Performed By: #### L ACT #### [facility] [address] [place] [address] Dr. Mirian Velasco Bilirubin [Mass/Vol] 0.3 mg/dL Normal 0.2-1.0 [facility] Comment on above: Performed By: #### L ACT #### [facility] [address] [place] [address] Dr. Mirian Velasco Calcium [Mass/Vol] 8.9 mg/dL Normal 8.5-10.1 [facility] Comment on above: Performed By: #### L ACT #### [facility] [address] [place] [address] Dr. Mirian Velasco Chloride [Moles/Vol] 107 mmol/L Normal 98-107 [facility] Comment on above: Performed By: #### L ACT #### [facility] [address] [place] [address] Dr. Mirian Velasco CO2 [Moles/Vol] 25.6 mmol/L Normal 21.0-32.0 [facility] Comment on above: Performed By: #### L ACT #### [facility] [address] [address] [address] Mirian Velasoc Creatinine [Mass/Vol] 0.70 mg/dL Normal 0.55-1.02 [facility] Comment on above: Performed By: #### L ACT #### [facility] [address] [address] [address] Mirian Velasco EGFR-AF [place] ISLANDER >60 Normal >=60 [facility] Comment on above: Performed By: #### L ACT #### [facility] [address] [address] [address] Mirian Velasco EGFR-NON AF [place]ER >60 Normal >=60 [facility] Comment on above: Performed By: #### L ACT #### [facility] [address] [place] [address] Dr. Mirian Velasco Globulin (S) [Mass/Vol] 3.4 g/dL Normal [facility] Comment on above: Performed By: #### L ACT #### [facility] [address] [place] [address] Dr. Mirian Velasco Glucose [Mass/Vol] 125 mg/dL Critically high 74-106 T [facility] Comment on above: Performed By: #### L ACT #### [facility] [address] [place] [address] Dr. Mirian Velasco Potassium [Moles/Vol] 3.7 mmol/L Normal 3.5-5.1 [facility] Comment on above: Performed By: #### L ACT #### [facility] [address] [address] [address] Mirian Velasco Protein [Mass/Vol] 6.8 g/dL Normal 6.4-8.2 [facility] Comment on above: Performed By: #### L ACT #### [facility] [address] [address] [address] Mirian Velasco Sodium [Moles/Vol] 142 mmol/L Normal 136-145 [facility] Comment on above: Performed By: #### L ACT #### [facility] [address] [address] [address] Mirian Velasco Urea nitrogen [Mass/Vol] 16.0 mg/dL Normal 7.0-18.0 [facility] Comment on above: Performed By: #### L ACT #### [facility] [address] [address] [address] Mirian Velasco Urea nitrogen/Creatinine [Mass ratio] 22.9 mg/mg Normal [facility] Comment on above: Performed By: #### L ACT #### [facility] [address] [place] [address] Dr. Mirian Velasco PROTIMEon 03-06-2023 INR Coag (PPP) [Relative time] {INR} Normal [facility] Comment on above: Performed By: #### P T #### [facility] [address] [place] [address] Dr. Mirian Velasco INR GUIDELINES SEE BELOW Normal [facility] Comment on above: Result Comment: SAMEER RED INR: 2.0 - 3.0 CONDITIONS NOT LISTED BELOW 2.5 - 3.5 FOR PROSTHETIC HEART VALVE REPLACEMENT 2.5 - 3.5 RECURRENT THROMBOSIS Performed By: #### P T #### [facility] [address] [place] [address] Dr. Mirian Velasco PT Coag (PPP) [Time] 9.8 s Normal 9.0-11.6 [facility] Comment on above: Performed By: #### P T #### [facility] [address] [place] [address] Dr. Mirian Velasco TROPONIN, HIGH SENSITIVITYon 03-06-2023 HSTROP 4.4 pg/mL Normal 4.0-51.3 [facility] Comment on above: Result Comment: CUT- OFF POINTS HAVE BEEN ESTABLISHED BASED ON THE FOURTH UNIVERSAL DEFINITIONS OF MYOCARDIAL INFARCTION. THE UPPER REFERENCE LIMIT (URL) OF TROPONIN, DEFINED THE 99TH PERCENTILE OF cTnI DISTRIBUTION IN A REFERENCE POPULATION, HAS BEEN CONFIRMED THE DECISION THRESHOLD FOR [place] DIAGNOSIS. Performed By: #### L ACT #### [facility] [address] [place] [address] Dr. Mirian Velasco Bacteria identified Aer cx N om (Unsp spec)Ordered By: Niecy Duron on 03-02-2023 Superficial Wound Culture Methicillin Resis Staph Aureus [facility] Superficial Wound Cultureon 03-02-2023 Superficial Wound Culture [...] RESISTANT TO ALL B-LACTAM DRUGS. PERFORMED BY: [place] [address] PATHOLOGIST INSTRUCTIONAL TECHNOLOGY INSTRUCTOR LEVAR CASE M.D. [facility] Comment on above: Performed By: #### C [facility] #### [address] Clinical Supporton Clinical Support [id number] Darrian Leal 1970 Provider Department [place] 02/27/2023 Yohana-CARMEN DORSEY [facility] Gerardo Heal No family history on file Reason for Visit and Comments: Therapy [849] [facility] 36on 02-20-2023 36 I just sent the scri pt over and signed her note. [facility] Behavioral Health Telemedici neon 02-20-2023 Behavioral Health Telemedicine [id number] Mary Leal 1970 F Date Provider Department Center 02/20/2023 3941-CARMEN DORSEY [facility] BH Gerardo Heal No family history on file Reason for Visit and Comments: Therapy [849] Normal [facility] CT LSPINE WO CONon 3 CT [...] by: NANCY BELLE Date: 2023-02-19 06:42 Normal [facility] 36on 02-17-2023 36 [employer] spoke with cecilia montemayor in regards to lunesta, patient reports Giana was increasing the lunesta to 3mg, life insurance underwriter read last note plan reports 2mg lunesta. [employer] will attempt to contact Giana Morales. [employer] is covering while Giana is out of the clinic. Normal [facility] 36 Patient needs [facility] [place]. Had an appt yesterday with you, and pharmacy does not have. Normal [facility] Telephoneon 02-17-2023 Telephone [id number] Darrian Leal en 1970 F Date Provider Department Center 02/17/2023 GIANA JAMES [facility] PSYCH Gerardo Heal No family history on file Reason for Visit and Comments: Medication Question [827] - Pt is upset that her Lunesta has not been increased as discussed. Normal [facility] Telephone [id number] Darrian Leal en 1970 F Date Provider Department Center 02/17/2023 681-PONCE FIGUEROA [facility] PSYCH Gerardo Heal No family history on file Normal [facility] Behavioral Health Telemedici belcher 02-16-2023 Behavioral Health Telemedicine [id number] Darrian Lealen 1970 Date Provider Department Center 02/16/2023 GIANA JAMES [facility] PSYCH Gerardo Heal No family history on file Level of Service:26360 MS OFFICE/OUTPATIENT ESTABLISHED MOD MDM 30-39 MIN Reason for Visit and Comments: Telehealth Audio/video Visit [871] - [email or web address] [facility] Behavioral Health Telemedici neon 02-13-2023 Behavioral Health Telemedicine [id number] Denver Lealisten 1970 Date Provider Department Center 02/13/2023 [facility] Gerardo [facility] No family history on file Reason for Visit and Comments: Therapy [849] - [facility] Behavioral Health Telemedici neon 02-06-2023 Behavioral Health Telemedicine [id number] Denver Lealisten 1970 Provider Department Center 02/06/2023 [facility] Gerardo [facility] No family history on file Reason for Visit and Comments: Therapy [849] [facility] Behavioral Health Telemedici neon 02-02-2023 Behavioral Health Telemedicine [id number] Darrian Lealen 1970 Provider Department Center 02/02/20[address] GIANA JAMES [facility] PSYCH Gerardo Heal No family history on file Level of Service:59405 MS OFFICE/OUTPATIENT ESTABLISHED MOD MDM 30-39 MIN Reason for Visit and Comments: Telehealth Audio/video Visit [871] - [email or web address] [facility] Behavioral Health Telemedici neon 01-23-2023 Behavioral Health Telemedicine [id number] Denver Lealisten 1970 Date Provider Department Center 01/23/2023 [facility] Gerardo [facility] No family history on file Reason for Visit and Comments: Therapy [849] [facility] 36on 01-16-2023 36 Spoke with pt to con firm her appointment this morning was cancelled per her request. Pt stated she wasn't feeling well. Her next appointment is scheduled for 01/23/23. [facility] 36 Patient called and w ants a return call from provider. [facility] Hussain 01-16-2023 CNPN Telephone (BHAVIN) ----- MARY LEAL ([id number]) 1970 F Date Time Provider Department 01/16/23 MOUNIKA HERNANDEZ During your visit today, we recorded the following information about you: Mounika Hernandez PA-C 01/16/2023 1:09 PM Signed Patient was scheduled for virtual PACC appt at 1300 today. Patient did not check in for visit. Called patient at [phone] to see if they needed any assistance [...] the AM and 4 mg PM - sdcmrpjoslz-bzokegcge-ksl anter (TRELEGY ELLIPTA) 100-62.5-25 mcg Inhale 1 [...] Status:Closed by MOUNIKA HERNANDEZ on 01/16/23 Normal [facility] HISTORY PHYSICALon 3 HISTORY PHYSICAL HNO ID: [id number] Author: Mounika Hernandez PA-C Service: ? Author Type: Physician Director Home Type: HANDP Filed: 01/16/2023 1:24 PM Note Text: This is a virtual visit using [employer] video visit. It required patient-provider interaction for the medical decision making as documented below. I have communicated my name and active licensure. The patient's identity and physical location were verified at the time of this visit. Either the patient or their legal cordage sales representative has been informed of the risks and benefits of and alternatives to treatment through a remote evaluation and consents to proceed with the evaluation remotely. Surgeon: Winston Hannah DO Type of surgery: GEN SURG: POP Patient scheduled for surgery on 02/08/23 . Surgery Location: [facility] Diagnosis: Preop examination (primary encounter diagnosis) [...] in the AM and 4 mg PM msvpgcfpvjz-djakbjlwz-ocr anter (TRELEGY ELLIPTA) 100-62.5-25 mcg Inhale 1 [...] PA-C January 16, 2023 12:36 PM Normal [facility] Telephoneon 01-16-2023 Telephone [id number] Darrian Leal 1970 Provider Department [place] 01/16/2023 [facility] Gerardo Heal No family history on file Reason for Visit and Comments: Appointment [375] Normal [facility] Telephone [id number] Darrian Leal 1970 Provider Department [place] 01/16/2023 SE S[facility]H [facility] PSYCH Gerardo Heal No family history on file Normal [facility] Hussain 01-11-2023 MARIAN Telephone ([employer]) ----- MARY LEAL ([id number]) 1970 F Date Time Provider Department 01/11/23 WINSTON HANNAH During your visit today, we recorded the following information about you: Berta Ann RN 01/11/2023 10:08 AM Signed Procedure pended for 02/08/23. Pt aware of need for PACC. Pre-op instructions reviewed, will send to pt's [facility], per pt request. Post op appt scheduled. No other questions at this time. Berta HENSON, RN Specialty Manager Information Allergies As of Date: 01/11/2023 Noted Allergy Reaction RISPERIDONE 07/27/2021 5 - Intolerance Comments: Breast discharge Date Reviewed: 12/15/2022 Reviewed by: Mary Obrien MD - Fully Assessed Reason for Visit: Schedule Procedure [Other] Primary Visit Diagnosis:Gastroparesis [K31.84] Order(s):EGD - THERAPEUTIC, EUS, OR TUBE INTERVENTIONS [GI2] Order #: [id number] FUTURE Prescriptions as of 01/11/2023 - sucralfate [...] the AM and 4 mg PM - tnkngqwgzjj-jowtfllxi-zes anter (TRELEGY ELLIPTA) 100-62.5-25 mcg Inhale 1 [...] Status:Closed by WINSTON HANNAH on 01/11/23 Normal [facility] Refillon 01-11-2023 Refill [id number] Darrian Leal 1970 Date Provider Department Center 01/11/[address] [facility] PSYCH Gerardo Heal No family history on file Reason for Visit and Comments: Med Refill [[id number]] Normal [facility] Behavioral Health Telemedici neon 01-06-2023 Behavioral Health Telemedicine [id number] Mary Leal 1970 Date Provider Department Center 01/06/[address] ANNETTE BRYAN [facility] PSYCH Gerardo Heal No family history on file Level of Service:49648 MS OFFICE/OUTPATIENT ESTABLISHED LOW MDM 20-29 MIN Reason for Visit and Comments: Telehealth Audio/video Visit [871] [facility] Refillon 01-03-2023 Refill [id number] Darrian Leal en 1970 Date Provider Department Center 01/03/[address] ANNETTE [address]AN [facility] PSYCH Gerardo Heal No family history on file Reason for Visit and Comments: Med Refill [[id number]] [facility] Behavioral Health Telemedici neon 01-02-2023 Behavioral Health Telemedicine [id number] Elvis,Mary 1970 Date Provider Department Center 01/02/2023 [facility] Gerardo Heal No family history on file Reason for Visit and Comments: Therapy [849] Telehealth Audio/video Visit [871] - [employer] [facility] XR ESOPHAGRAMon 12-26-2022 [facility] Behavioral Health Telemedici neon 12-12-2022 Behavioral Health Telemedicine [id number] ElvisDarrianMary 1970 Date Provider Department Center 12/12/2022 [facility] Gerardo Heal No family history on file Reason for Visit and Comments: Therapy [849] [facility] Behavioral Health Telemedici neon 12-09-2022 Behavioral Health Telemedicine [id number] Darrian Lealen 1970 Date Provider Department Center 12/09/[address] ANNETTE BRYAN [facility] PSYCH Gerardo Heal No family history on file Level of Service:37038 MS OFFICE/OUTPATIENT ESTABLISHED MOD MDM 30-39 MIN Reason for Visit and Comments: Telehealth Audio/video Visit [871] - [email or web address] [facility] NURSING PROGon 12-08-2022 NURSING PROG HNO ID: [id number] Author: Lisa Contreras, MAKI Service: Nursing Author Type: Registered Nurse Type: Nursing Progress Note Filed: 12/08/2022 11:28 AM Note Text: [facility] POST PROCEDURE FOLLOW UP CALL [phone] (home) Date Phone Call Made: 12/08/2022 Attempt: [...] make your experience more pleasant? No Lisa Contreras, RN [facility] ANES POSTPROC EVALon 023 ANES POSTPROC EVAL HNO ID: [id number] Author: Andres Sheets DO Service: Anesthesiology Author Type: Anesthesiologist Type: Anesthesia Postprocedure Evaluation Filed: 12/07/2022 12:44 PM Note Text: POST ANESTHESIA EVALUATION NOTE : 1970 Procedure Summary Date: 12/07/22 Room / Location: [facility] Anesthesia Start: 1034 Anesthesia Stop: 1055 [...] December 07, 2022 TIME: 12:44 PM CSN: [id number] [facility] ANES PRE-OPon 12-07-2022 [facility] PRE-OP HNO ID: [id number] Author: Andres Sheets DO Service: Anesthesiology Author Type: Anesthesiologist Type: Anesthesia Preprocedure Evaluation Filed: 12/07/2022 9:42 AM Note Text: ANESTHESIOLOGY DAY OF SURGERY NOTE : 1970 Procedure Information Date/Time: 12/07/22 1030 Scheduled providers: Winston Hannah DO Procedures: EGD - THERAPEUTIC, EUS, OR TUBE INTERVENTIONS PH MONTIEL INSERT OFF MEDS Location: [facility] Estimated body mass index is 24.55 [...] the AM and 4 mg PM - kdhmmkbdiub-xtfuwlmbl-muv anter (TRELEGY ELLIPTA) 100-62.5-25 mcg Inhale 1 [...] December 07, 2022 TIME: 9:40 AM CSN: [id number] [facility] HISTORY PHYSICALon HISTORY PHYSICAL HNO ID: [id number] Author: Soraida Mathis PA-C Service: Gastroenterology Author Type: Physician Director Home Type: HANDP Filed: 12/07/2022 9:48 AM Note [...] PAIN, N/V/D Medication reconciliation list reviewed in [facility]. Past medical history, past surgical history, social history and family history reviewed and updated in [facility]. ALLERGIES Allergies: Risperidone Intolerance Comment:Breast discharge SEE [facility] FOR VITALS BP 109/74 Pulse 91 [...] Mary Leal DATE: 12/07/2022 TIME: 9:41 AM [facility] Upper GI endoscopyon 023 Upper GI endoscopy [facility] Gastrointestinal Endoscopy Patient Name: Mary Leal Procedure [...] by the physician, the nurse and the batter mixer in the pre-procedure area in the [...] previously scheduled. Procedure Code(s): --- Professional --- 99745, Esophagogastroduodenoscop y, flexible, transoral; with dilation of gastric/duodenal stricture(s) (eg, balloon, bougie) Diagnosis Code(s): --- Professional --- K21.00, Gastro-esophageal reflux disease with esophagitis, without bleeding K31.84, Gastroparesis CPT copyright 2020 [employer]. All rights reserved. The codes documented in this report are preliminary and upon diagnostic imaging manager review may be revised to meet current compliance requirements. Attending Participation: I personally performed the entire procedure. Scope In: 10:39:12 AM Scope Out: 10:46:13 AM MD Winston Diaz MD 12/07/2022 10 (more content not included)... [facility] ANES POSTPROC EVALon 023 ANES POSTPROC EVAL HNO ID: [id number] Author: Annabel Burton MD Service: Anesthesiology Author Type: Physician Type: Anesthesia Postprocedure Evaluation Filed: 12/05/2022 2:01 PM Note Text: POST ANESTHESIA EVALUATION NOTE : 1970 Procedure Summary Date: 12/05/22 Room / Location: [facility] Anesthesia Start: 900 Anesthesia Stop: 917 [...] December 05, 2022 TIME: 2:00 PM CSN: [id number] [facility] ANES PRE-OPon 12-05-2022 ANES PRE-OP HNO ID: [id number] Author: Annabel Burton MD Service: Anesthesiology Author Type: Physician Type: Anesthesia Preprocedure Evaluation Filed: 12/05/2022 8:28 AM Note Text: ANESTHESIOLOGY DAY OF SURGERY NOTE : 1970 Procedure Information Date/Time: 12/05/22 0900 Scheduled providers: Isra Masters DO Procedure: SIGMOIDOSCOPY Location: [facility] Estimated body mass index is 24.55 [...] the AM and 4 mg PM - ssmvwbqfgjg-ivquyllmr-rbv anter (TRELEGY ELLIPTA) 100-62.5-25 mcg Inhale 1 [...] December 05, 2022 TIME: 8:26 AM CSN: [id number] [facility] Flexible Sigmoidoscopyon Flexible sigmoidoscopy [facility] Gastrointestinal Endoscopy Patient Name: Mary Leal Procedure Date: 12/05/2022 8:55 AM Date of : 1970 Admit Type: Outpatient Age: 52 Room: [place] [address] Gender: Female Note Status: Finalized Attending MD: [...] present medications. Procedure Code(s): --- Professional --- 07040, 52, Sigmoidoscopy, flexible; diagnostic, including collection of specimen(s) by brushing or washing, when performed (separate procedure) Diagnosis Code(s): --- Professional --- K59.00, Constipation, unspecified CPT copyright 2020 [employer]. All rights reserved. The codes documented in this report are preliminary and upon diagnostic imaging manager review may be revised to meet current compliance requirements. Attending Participation: I personally performed the entire procedure. Scope In: 9:07:04 AM Scope Out: 9:09:45 AM DO Isra Chen DO 12/05/2022 9:13:05 AM This report has been signed electronically by Isra Masters DO Number of Addenda: 0 Note Initiated On: 12/05/2022 8:55 AM Estimated Blood Loss: Estimated blood loss: none. Normal [facility] HISTORY PHYSICALon HISTORY PHYSICAL HNO ID: [id number] Author: Lashanda Dorado PA-C Service: Gastroenterology Author Type: Physician Director Home Type: HANDP Filed: 12/05/2022 8:43 AM Note [...] PAIN, N/V/D Medication reconciliation list reviewed in [facility]. Past medical history, past surgical history, social history and family history reviewed and updated in [facility]. ALLERGIES Allergies: Risperidone Intolerance Comment:Breast discharge SEE [facility] FOR VITALS There were no vitals taken [...] DATE: 12/05/2022 TIME: 8:42 AM Normal [facility] NURSING PROGon 12-05-2022 NURSING PROG HNO ID: [id number] Author: Lisa Contreras RN Service: ? Author Type: Registered Nurse Type: Nursing Progress Note Filed: 12/05/2022 1:07 PM Note Text: [facility] ENDOSCOPY PRE PROCEDURE CALL Akiko. I'm calling from [facility] endoscopy to provide you with the information for your surgery/procedure tomorrow. Spoke to: Patient CONFIRM Procedure Planned with patient:Esophagogastroduo denoscopy(EGD) with or without biopies based on clinical findings, removal of polyps or lesions Are you familiar with where [facility] is located?yes Address [facility] Patient instructed to enter through the main hospital entrance off [address] at [address] through the revolving doors and check in at the main desk with your set key driver's license and insurance card. yes When anesthesia or sedation is being given: Patient instructed you must have an adult set key driver because you will not be able to work or drive for the rest of the day after your test.yes Can you please confirm the name and relationship of your set key driver. tbd What is the best number for your set key driver to be reached at tomorrow for updates? tbd Your set key driver is allowed to wait here with [...] Do not wear makeup, lotion, or finger beninese. yes Patient instructed: Please bring a list [...] given Any barriers to Patient learning (confusion? Chief Deputy needed?): Patient/Patient Atomic Welder responded appropriately on phone. If patient needs to reschedule please call: [phone] [facility] phone number: [phone] Type of instruction given: Verbal by telephone contact. Normal [facility] NURSING PROGon 12-02-2022 NURSING PROG HNO ID: [id number] Author: Isra Harman RN Service: ? Author Type: Registered Nurse Type: Nursing Progress Note Filed: 12/02/2022 10:54 AM Note Text: [facility] ENDOSCOPY PRE PROCEDURE CALL Akiko. I'm calling from [facility] endoscopy to provide you with the information for your surgery/procedure tomorrow. Spoke to: Patient CONFIRM Procedure Planned with patient: Are you familiar with where [facility] is located?yes Address [address] [facility] Patient instructed to enter through the main hospital entrance off [address] at the [address] through the revolving doors and check in at the main desk with your set key driver's license and insurance card. yes When anesthesia or sedation is being given: Patient instructed you must have an adult set key driver because you will not be able to work or drive for the rest of the day after your test.yes Can you please confirm the name and relationship of your set key driver. Rich What is the best number for your set key driver to be reached at tomorrow for updates? 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 yes Patient instructed: Please bring a list [...] given Any barriers to Patient learning (confusion? Chief Deputy needed?): Patient/Patient Atomic Welder responded appropriately on phone. If patient needs to reschedule please call: [phone] [facility] phone number: [phone] Type of instruction given: Verbal by telephone contact. Normal [facility] AMYLASEon 10-20-2022 Amylase [Catalytic activity/Vol] 33 U/L Normal 25-115 [facility] Comment on above: Performed By: #### L ACT #### [facility] [address] [address] [address] Mirian Velasco CBC AUTO DIFFon 10-20-2022 BASO # 0.0 103/ul Normal 0.0-0.1 [facility] Comment on above: Performed By: #### P T #### [facility] [address] [place] [address] Dr. Mirian Velasco Basophils/100 WBC (Bld) 0.2 % Normal 0.2-2.0 [facility] Comment on above: Performed By: #### P T #### [facility] [address] [place] [address] Dr. Mirian Velasco EO # 0.1 103/ul Normal 0.0-0.7 [facility] Comment on above: Performed By: #### P T #### [facility] [address] [place] [address] Dr. Mirian Velasco Eosinophils/100 WBC (Bld) 0.6 % Critically low 0.9-7.0 [facility] Comment on above: Performed By: #### P T #### [facility] [address] [place] [address] Dr. Mirian Velasco Erythrocyte distribution width (RBC) [Ratio] 13.6 % Normal 11.0-15.0 [facility] Comment on above: Performed By: #### P T #### [facility] [address] [place] [address] Dr. Mirian Velasco Hematocrit (Bld) [Volume fraction] 41.0 % Normal 36.0-48.0 [facility] Comment on above: Performed By: #### P T #### [facility] [address] [place] [address] Dr. Mirian Velasco Hemoglobin (Bld) [Mass/Vol] 13.5 g/dL Normal 12.0-16.0 [facility] Comment on above: Performed By: #### P T #### [facility] [address] [place] [address] Dr. Mirian Velasco IG # 0.06 10e3/ul Critically high 0.00-0.03 [facility] Comment on above: Performed By: #### P T #### [facility] [address] [place] [address] Dr. Mirian Velasco IG % 0.4 % Normal 0.0-0.5 [facility] Comment on above: Performed By: #### P T #### [facility] [address] [place] [address] Dr. Mirian Velasco LYMPH # 2.5 103/ul Normal 1.2-3.8 [facility] Comment on above: Performed By: #### P T #### [facility] [address] [place] [address] Dr. Mirian Velasco Lymphocytes/100 WBC (Bld) 17.5 % Critically low 20.5-60.0 [facility] Comment on above: Performed By: #### P T #### [facility] [address] [place] [address] Dr. Mirian Velasco MANUAL DIFF REQ NO Normal [facility] Comment on above: Performed By: #### P T #### [facility] [address] [place] [address] Dr. Mirian Velasco MCH (RBC) [Entitic mass] 28.1 pg Normal 26.7-34.0 [facility] Comment on above: Performed By: #### P T #### [facility] [address] [place] [address] Dr. Mirian Velasco MCHC (RBC) [Mass/Vol] 32.9 g/dL Normal 29.9-35.2 [facility] Comment on above: Performed By: #### P T #### [facility] [address] [place] [address] Dr. Mirian Velasco MCV (RBC) [Entitic vol] 85.2 fL Normal 81.0-99.0 [facility] Comment on above: Performed By: #### P T #### [facility] [address] [place] [address] Dr. Mirian Velasco MONO # 0.7 103/ul Normal 0.3-0.8 [facility] Comment on above: Performed By: #### P T #### [facility] [address] [place] [address] Dr. Mirian Velasco Monocytes/100 WBC (Bld) 4.5 % Normal 1.7-12.0 [facility] Comment on above: Performed By: #### P T #### [facility] [address] [address] [address] Mirian Velasco NEUT # 11.0 103/ul Critically high 1.4-6.5 [facility] Comment on above: Performed By: #### P T #### [facility] [address] [address] [address] Mirian Velasco Neutrophils/100 WBC (Bld) 76.8 % Critically high 43.0-75.0 [facility] Comment on above: Performed By: #### P T #### [facility] [address] [address] [address] Mirian Vleasco Platelet mean volume (Bld) [Entitic vol] 8.7 fL Critically low 9.5-13.5 [facility] Comment on above: Performed By: #### P T #### [facility] [address] [place] [address] Dr. Mirian Velasco PLT 390 103/ul Normal 150-450 [facility] Comment on above: Performed By: #### P T #### [facility] [address] [address] [address] Mirian Velasco RBC 4.81 106/ul Normal 4.20-5.40 [facility] Comment on above: Performed By: #### P T #### [facility] [address] [place] [address] Dr. Mirian Velasco WBC 14.3 103/ul Critically high 4.0-11.0 [facility] Comment on above: Performed By: #### P T #### [facility] [address] [place] [address] ABD/PELV W CONon [...] SALMA AMEZQUITA Date: 2022-10-20 12:35 Normal [facility] CULTURE BLOODon 10-20-2022 Microscopic examination of blood, culture Culture Observations: NO GROWTH AT 5 DAYS. Normal [facility] Comment on above: Performed By: #### B LDCX2 ####[facility] [id number] [place], [place] [address]StDr. Mirian Velasco Microscopic examination of blood, culture Culture Observations: NO GROWTH AT 5 DAYS. Normal [facility] Comment on above: Performed By: #### B LDCX1 #### [facility] [address] [place], [place] [address] Dr. 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 NO POTENTIAL PATHOGENS SEEN. Normal [facility] Comment on above: Performed By: #### U RCX #### [facility] [address] [place], [place] [address] Dr. Mirian Velasco ER URINE PROFILEon 12-15-202 2 Bilirubin Ql (U) Negative Normal NEGATIVE [facility] Comment on above: Performed By: #### P T #### [facility] [address] [address] [address] Mirian Velasco Clarity (U) CLEAR Normal CLEAR [facility] Comment on above: Performed By: #### P T #### [facility] [address] [place] [address] Dr. Mirian Velasco Color (U) LT. YELLOW Normal YELLOW [facility] Comment on above: Performed By: #### P T #### [facility] [address] [place] [address] Dr. Mirian Velasco ERUAHD A micrscopic examina tion will be performed if indicated. Normal [facility] Comment on above: Performed By: #### P T #### [facility] [address] [place] [address] Dr. Mirian Velasco Glucose Ql (U) Negative Normal NEGATIVE [facility] Comment on above: Performed By: #### P T #### [facility] [address] [place] [address] Dr. Mirian Velasco Hemoglobin Ql (U) Negative Normal NEGATIVE [facility] Comment on above: Performed By: #### P T #### [facility] [address] [address] [address] Mirian Velasco Ketones Ql (U) Negative Normal NEGATIVE [facility] Comment on above: Performed By: #### P T #### [facility] [address] [place] [address] Dr. Mirian Velasco LEUKOCYTES SMALL Abnormal NEGATIVE [facility] Comment on above: Performed By: #### P T #### [facility] [address] [place] [address] Dr. Mirian Velasco Nitrite Ql (U) Negative Normal NEGATIVE [facility] Comment on above: Performed By: #### P T #### [facility] [address] [place] [address] Dr. Mirian Velasco pH (U) 7.0 [pH] Normal 5-9 [facility] Comment on above: Performed By: #### P T #### [facility] [address] [place] [address] Dr. Mirian Velasco SPEC GRAVITY 1.015 Normal 1.005-<=1. 025 [facility] Comment on above: Performed By: #### P T #### [facility] [address] [place] [address] Dr. Mirian Velasco UA PROTEIN Negative Normal NEGATIVE/ TRACE [facility] Comment on above: Performed By: #### P T #### [facility] [address] [place] [address] Dr. Mirian Velasco UR MICRO IND INDICATED Normal [facility] Comment on above: Performed By: #### P T #### [facility] [address] [place] [address] Dr. Mirian Velasco Urobilinogen Qn (U) 0.2 {Lyubov'U}/dL Normal 0.2 - 1. 0 [facility] Comment on above: Performed By: #### P T #### [facility] [address] [place] [address] Dr. Mirian Velasco LACTATE/LACTIC ACIDon 2021 Lactate [Moles/Vol] 1.3 mmol/L Normal 0.4-1.9 [facility] Comment on above: Performed By: #### L ACT #### [facility] [address] [place] [address] Dr. Mirian Velasco LIPASEon 10-20-2022 Lipase [Catalytic activity/Vol] 49.0 U/L Critically low 73.0-393.0 [facility] Comment on above: Performed By: #### P T #### [facility] [address] [place] [address] Dr. Mirian Velasco PROF 14(COMP METB)on 022 Albumin [Mass/Vol] 3.2 g/dL Critically low 3.4-5.0 [facility] Comment on above: Performed By: #### P T #### [facility] [address] [place] [address] Dr. Mirian Velasco Albumin/Globulin [Mass ratio] 0.9 {ratio} Normal [facility] Comment on above: Performed By: #### P T #### [facility] [address] [address] [address] Mirian Velasco ALP [Catalytic activity/Vol] 129 U/L Critically high 46-116 [facility] Comment on above: Performed By: #### P T #### [facility] [address] [address] [address] Mirian Velasco ALT [Catalytic activity/Vol] 25 U/L Normal 14-59 [facility] Comment on above: Performed By: #### P T #### [facility] [address] [address] [address] Mirian Velasco Anion gap [Moles/Vol] 10.7 mmol/L Normal Th e [facility] Comment on above: Performed By: #### P T #### [facility] [address] [place] [address] Dr. Mirian Velasco AST [Catalytic activity/Vol] 20 U/L Normal 15-37 [facility] Comment on above: Performed By: #### P T #### [facility] [address] [place] [address] Dr. Mirian Velasco Bilirubin [Mass/Vol] 0.5 mg/dL Normal 0.2-1.0 [facility] Comment on above: Performed By: #### P T #### [facility] [address] [place] [address] Dr. Mirian Velasco Calcium [Mass/Vol] 9.2 mg/dL Normal 8.5-10.1 [facility] Comment on above: Performed By: #### P T #### [facility] [address] [place] [address] Dr. Mirian Velasco Chloride [Moles/Vol] 102 mmol/L Normal 98-107 [facility] Comment on above: Performed By: #### P T #### [facility] [address] [place] [address] Dr. Mirian Velasco CO2 [Moles/Vol] 30.0 mmol/L Normal 21.0-32.0 [facility] Comment on above: Performed By: #### P T #### [facility] [address] [address] [address] Mirian Velasco Creatinine [Mass/Vol] 0.68 mg/dL Normal 0.55-1.02 [facility] Comment on above: Performed By: #### P T #### [facility] [address] [address] [address] Mirian Velasco EGFR-AF [place] >60 Normal >=60 [facility] Comment on above: Performed By: #### P T #### [facility] [address] [address] [address] Mirian Velasco EGFR-NON AF [place] >60 Normal >=60 [facility] Comment on above: Performed By: #### P T #### [facility] [address] [place] [address] Dr. Mirian Velasco Globulin (S) [Mass/Vol] 3.7 g/dL Normal [facility] Comment on above: Performed By: #### P T #### [facility] [address] [address] [address] Mirian Velasco Glucose [Mass/Vol] 109 mg/dL Critically high 74-106 [facility] Comment on above: Performed By: #### P T #### [facility] [address] [place] [address] Dr. Mirian Velasco Potassium [Moles/Vol] 3.7 mmol/L Normal 3.5-5.1 [facility] Comment on above: Performed By: #### P T #### [facility] [address] [place] [address] Dr. Mirian Velasco Protein [Mass/Vol] 6.9 g/dL Normal 6.4-8.2 [facility] Comment on above: Performed By: #### P T #### [facility] [address] [place] [address] Dr. Mirian Velasco Sodium [Moles/Vol] 139 mmol/L Normal 136-145 [facility] Comment on above: Performed By: #### P T #### [facility] [address] [address] [address] Mirian Velasco Urea nitrogen [Mass/Vol] 13.0 mg/dL Normal 7.0-18.0 [facility] Comment on above: Performed By: #### P T #### [facility] [address] [place] [address] Dr. Mirian Velasco Urea nitrogen/Creatinine [Mass ratio] 19.1 mg/mg Normal [facility] Comment on above: Performed By: #### P T #### [facility] [address] [place] [address] Dr. Mirian Velasco URINE MICROSCOPIC ONLYon BACTERIA TRACE Abnormal NONE SEEN [facility] Comment on above: Performed By: #### P T #### [facility] [address] [place] [address] Dr. Mirian Velasco Bacteria identified Cx Nom (U) INDICATED Normal [facility] Comment on above: Performed By: #### P T #### [facility] [address] [place] [address] Dr. Mirian Velasco CAST NONE SEEN Normal NONE SEEN [facility] Comment on above: Performed By: #### P T #### [facility] [address] [place] [address] Dr. Mirian Velasco Crystals LM Nom (Urine sed) NONE SEEN Normal NONE SEEN [facility] Comment on above: Performed By: #### P T #### [facility] [address] [place] [address] Dr. Mirian Velasco Epithelial cells LM Ql (Urine sed) MODERATE Abnormal NONE SEEN /RARE [facility] Comment on above: Performed By: #### P T #### [facility] [address] [place] [address] Dr. Mirian Velasco MUCOUS NONE SEEN Normal NONE SEEN [facility] Comment on above: Performed By: #### P T #### [facility] [address] [place] [address] Dr. Mirian Velasco RBC NONE SEEN Abnormal 0-2 [facility] Comment on above: Performed By: #### P T #### [facility] [address] [place] [address] Dr. Mirian Velasco WBC 2-5 Abnormal NONE SEEN [facility] Comment on above: Performed By: #### P T #### [facility] [address] [place], [place] [address] Dr. Mirian Velasco YEAST PRESENT Abnormal NONE SEEN [facility] Comment on above: Result Comment: RARE BUDDING YEAST Performed By: #### P T #### [facility] [address] [place], [place] [address] Dr. Mirian Velasco POINT OF CARE GLUCOSEon 10-06 Glucose [Mass/Vol] 131 mg/dL Critically high 74-106 [facility] Comment on above: Performed By: #### P OCGLUC ####[facility] [id number] [place], [place] [address]KtDr. Mirian Velasco Glucose [Mass/Vol] 113 mg/dL Critically high 74-106 [facility] Comment on above: Performed By: #### P OCGLUC ####[facility] [id number] [place], [place] [address]XyDr. Mirian Velasco XR FOOT RT 2Von 10-17-2022 [...] NICKI DACOSTA Date: 2022-10-17 18:04 Normal [facility] Covid-19 PCR (CVDTB)on SARS-CoV-2 (COVID-19) RNA JOSÉ MIGUEL+probe Ql (Unsp spec) Not detected Normal NOT DETECTED [facility] Comment on above: Result Comment: This test is not yet approved or cleared by the [place] FDA. When there are no FDA-approved or cleared tests available, and other criteria are met, FDA can make tests available under an emergency access mechanism called an Emergency Use Authorization (EUA). The EUA for this test is supported by the [place] of Health and Human Service's (HHS's) declaration [...] SARS-CoV-2. Performed By: #### C VDTB #### [facility] [address] [place] [address] Dr. Mirian Velasco Diagnostic Mammogram, Unilat eral [...] VERY IMPORTANT TO YOUR HEALTH. THE CURRENT [place] COLLEGE OF RADIOLOGY AND NATIONAL COMPREHENSIVE CANCER NETWORK GUIDELINES RECOMMENDS ANNUAL MAMMOGRAPHY BEGINNING AT AGE 42 THIS FACILITY USES A REMINDER SYSTEM TO ENSURE ALL PATIENTS RECEIVE REMINDER NOTIFICATIONS AT THE APPROPRIATE TIME BASED ON THE RECOMMENDATIONS OF THIS EXAM. Board Certified Radiologist. Accredited by the ACR and FDA. Report reported and signed by Dawna Lizarraga on 09/28/2022 1307 Normal [facility] CBC AUTO DIFFon 09-26-2022 BASO # 0.1 103/ul Normal 0.0-0.1 [facility] Comment on above: Performed By: #### L ACT #### [facility] [address] [place] [address] Dr. Mirian Velasco Basophils/100 WBC (Bld) 0.8 % Normal 0.2-2.0 [facility] Comment on above: Performed By: #### L ACT #### [facility] [address] [place] [address] Dr. Mirian Velasco EO # 0.1 103/ul Normal 0.0-0.7 [facility] Comment on above: Performed By: #### L ACT #### [facility] [address] [place] [address] Dr. Mirian Velasco Eosinophils/100 WBC (Bld) 1.5 % Normal 0.9-7.0 [facility] Comment on above: Performed By: #### L ACT #### [facility] [address] [place] [address] Dr. Mirian Velasco Erythrocyte distribution width (RBC) [Ratio] 13.4 % Normal 11.0-15.0 [facility] Comment on above: Performed By: #### L ACT #### [facility] [address] [place] [address] Dr. Mirian Velasco Hematocrit (Bld) [Volume fraction] 41.3 % Normal 36.0-48.0 [facility] Comment on above: Performed By: #### L ACT #### [facility] [address] [place] [address] Dr. Mirian Velasco Hemoglobin (Bld) [Mass/Vol] 13.4 g/dL Normal 12.0-16.0 [facility] Comment on above: Performed By: #### L ACT #### [facility] [address] [place] [address] Dr. Mirian Velasco IG # 0.04 10e3/ul Critically high 0.00-0.03 [facility] Comment on above: Performed By: #### L ACT #### [facility] [address] [place] [address] Dr. Mirian Velasco IG % 0.5 % Normal 0.0-0.5 [facility] Comment on above: Performed By: #### L ACT #### [facility] [address] [place] [address] Dr. Mirian Velasco LYMPH # 2.5 103/ul Normal 1.2-3.8 [facility] Comment on above: Performed By: #### L ACT #### [facility] [address] [place] [address] Dr. Mirian Velasco Lymphocytes/100 WBC (Bld) 27.7 % Normal 20.5-60.0 [facility] Comment on above: Performed By: #### L ACT #### [facility] [address] [place] [address] Dr. Mirian Velasco MANUAL DIFF REQ NO Normal [facility] Comment on above: Performed By: #### L ACT #### [facility] [address] [place] [address] Dr. Mirian Velasco MCH (RBC) [Entitic mass] 27.6 pg Normal 26.7-34.0 [facility] Comment on above: Performed By: #### L ACT #### [facility] [address] [place] [address] Dr. Mirian Velasco MCHC (RBC) [Mass/Vol] 32.4 g/dL Normal 29.9-35.2 [facility] Comment on above: Performed By: #### L ACT #### [facility] [address] [place] [address] Dr. Mirian Velasco MCV (RBC) [Entitic vol] 85.0 fL Normal 81.0-99.0 [facility] Comment on above: Performed By: #### L ACT #### [facility] [address] [place] [address] Dr. Mirian Velasco MONO # 0.6 103/ul Normal 0.3-0.8 [facility] Comment on above: Performed By: #### L ACT #### [facility] [address] [place] [address] Dr. Mirian Velasco Monocytes/100 WBC (Bld) 6.9 % Normal 1.7-12.0 [facility] Comment on above: Performed By: #### L ACT #### [facility] [address] [place] [address] Dr. Mirian Velasco NEUT # 5.6 103/ul Normal 1.4-6.5 [facility] Comment on above: Performed By: #### L ACT #### [facility] [address] [place] [address] Dr. Mirian Velasco Neutrophils/100 WBC (Bld) 62.6 % Normal 43.0-75.0 [facility] Comment on above: Performed By: #### L ACT #### [facility] [address] [address] [address] Mirian Velasco Platelet mean volume (Bld) [Entitic vol] 8.6 fL Critically low 9.5-13.5 [facility] Comment on above: Performed By: #### L ACT #### [facility] [address] [address] [address] Mirian Velasco PLT 372 103/ul Normal 150-450 [facility] Comment on above: Performed By: #### L ACT #### [facility] [address] [address] [address] Mirian Velasco RBC 4.86 106/ul Normal 4.20-5.40 [facility] Comment on above: Performed By: #### L ACT #### [facility] [address] [address] [address] Mirian Velasco WBC 8.9 103/ul Normal 4.0-11.0 [facility] Comment on above: Performed By: #### L ACT #### [facility] [address] [address] [address] Mirian Velasco PROF CHEM 8 (BAS METB)on Anion gap [Moles/Vol] 8.0 mmol/L Normal [facility] Comment on above: Performed By: #### P T #### [facility] [address] [address] [address] Mirian Velasco Calcium [Mass/Vol] 9.0 mg/dL Normal 8.5-10.1 [facility] Comment on above: Performed By: #### P T #### [facility] [address] [address] [address] Mirian Velasco Chloride [Moles/Vol] 106 mmol/L Normal 98-107 [facility] Comment on above: Performed By: #### P T #### [facility] [address] [place] [address] Dr. Mirian Velasco CO2 [Moles/Vol] 30.3 mmol/L Normal 21.0-32.0 [facility] Comment on above: Performed By: #### P T #### [facility] [address] [address] [address] Mirian Velasco Creatinine [Mass/Vol] 0.71 mg/dL Normal 0.55-1.02 [facility] Comment on above: Performed By: #### P T #### [facility] [address] [address] [address] Mirian Velasco EGFR-AF [place] >60 Normal >=60 [facility] Comment on above: Performed By: #### P T #### [facility] [address] [address] [address] Mirian Velasco EGFR-NON AF [place] >60 Normal >=60 [facility] Comment on above: Performed By: #### P T #### [facility] [address] [address] [address] Mirian Velasco Glucose [Mass/Vol] 81 mg/dL Normal 74-106 [facility] Comment on above: Performed By: #### P T #### [facility] [address] [place] [address] Dr. Mirian Velasco Potassium [Moles/Vol] 4.3 mmol/L Normal 3.5-5.1 [facility] Comment on above: Performed By: #### P T #### [facility] [address] [place] [address] Dr. Mirian Velasco Sodium [Moles/Vol] 140 mmol/L Normal 136-145 [facility] Comment on above: Performed By: #### P T #### [facility] [address] [place] [address] Dr. Mirian Velasco Urea nitrogen [Mass/Vol] 16.0 mg/dL Normal 7.0-18.0 [facility] Comment on above: Performed By: #### P T #### [facility] [address] [place] [address] Dr. Mirian Velasco Urea nitrogen/Creatinine [Mass ratio] 22.5 mg/mg Normal [facility] Comment on above: Performed By: #### P T #### [facility] [address] [address] [address] Mirian Velasco C reactive protein [Mass/vol ume] in Serum or PlasmaOrdered By: Annette Harris on 09-22-2022 CRP [Mass/Vol] 0.6 mg/dL 0.0-1.0 [facility] C-Reactive Proteinon 022 C-Reactive Protein 0.6 mg/dL Normal 0.0-1.0 mg/dL [facility] [employer] Other Erythrocyte Sedimentation Ra lian 09-22-2022 ESR (Bld) [Velocity] 4 mm/h Normal 0-29 [facility] [employer] Other Erythrocyte sedimentation ra te by Photometric methodOrdered By: Annette Harris on 09-22-2022 ESR Photometric method (Bld) [Velocity] 4 mm/hr 0-29 [facility] Serum nuclear antibody titer Ordered By: Annette Harris on 09-22-2022 Nuclear Ab (S) [Titer] Negative . [facility] Comment on above: Negative <1:80 Borde rline 1:80 Positive >1:80ICAP nomenclature: AC-0For more information about Hep-2 cell patterns useANApatterns.org, the official website for theInternational Consensus on Antinuclear Antibody (CHUYITA)Patterns (ICAP).Performed at: [employer] [facility] [address] [id number] Director: Erick Neville PhD, Phone: [phone] Serum or plasma rheumatoid f actor measurement (units/volume)Ordered By: Annette Harris on 09-22-2022 Rheumatoid factor Qn [IU]/mL <14.0 [facility] Comment on above: Performed at: [employer] [facility] [address] [id number] Director: Erick Neville PhD, Phone: [phone] Serum or plasma thyroxine (T 4) measurement (mass/volume)Ordered By: Annette Harris on 09-22-2022 T4 [Mass/Vol] 9.82 ug/dL 5.39-11.82 [facility] Serum or plasma uric acid me asurement (mass/volume)Ordered By: Annette Harris on 09-22-2022 Urate [Mass/Vol] 4.2 mg/dL 2.6-7.2 [facility] TSH DL <= 0.005 mIU/L QnOrde red By: Annette Harris on 09-22-2022 TSH Qn 1.98 m[IU]/L 0.45-5.33 [facility] Thyroid Stimulating Hormoneo n 09-22-2022 TSH Qn 1.38477526196 m[IU]/L Normal 0.45-5 .33 u[iU]/mL [employer] Other Thyroxine (T4) Totalon 09-22 Thyroxine (T4) Total 9.82 ug/dL Normal 5.39-11 .82 ug/dL [employer] Other Uric Acidon 09-22-2022 Urate [Mass/Vol] 4.1654284 mg/dL Normal 2.6-7.2 mg/dL [employer] Other XR knee BI 2Von 09-22-2022 XR knee BI 2V [facility] [employer] Other XR knee BI 2V [facility] [employer] Other XR knee BI 2V [address] [place] [address] [employer] Other XR knee BI 2V [address] [employer] Other XR knee BI 2V XRay Report [employer] Other XR knee BI 2V Signed [employer] Other XR knee BI 2V Patient: Darrian Leal jonathan Kenny MR#: [id number] Sandoval [employer] Other XR knee BI 2V 863 [employer] Other XR knee BI 2V : 1970 Acct:[id number] [employer] Other XR knee BI 2V Age/Sex: 52 / F ADM Date: 09/22/22 [employer] Other XR knee BI 2V Loc: SOXD Room: Type : REG CLI [employer] Other XR knee BI 2V Attending Dr: Annette Harris MD [employer] Other XR knee BI 2V Copies to: Annette Harris MD [employer] Other XR knee BI 2V Ordering Provider: Carey Harris MD [employer] Other XR knee BI 2V Date of Service: 09/22/22 [employer] Other XR knee BI 2V XR/XR knee BI 2V: Knee pain [employer] Other XR knee BI 2V XR knee BI 2V 2021 9:23 AM [employer] Other XR knee BI 2V SIGNS AND SYMPTOMS: Bilateral knee pain right greater than left [employer] Other XR knee BI 2V PROTOCOL: Frontal an d lateral radiographs of the bilateral knees [employer] Other XR knee BI 2V COMPARISON: None [employer] Other XR knee BI 2V FINDINGS: [employer] Other XR knee BI 2V There is evidence of prior ACL repair in the left knee with mild narrowing of the weightbearing [employer] Other XR knee BI 2V joint spaces on the left. The joint spaces are otherwise preserved. There is no fracture or [employer] Other XR knee BI 2V dislocation. No join t effusion or soft tissue swelling. [employer] Other XR knee BI 2V X R/XR knee BI 2V [employer] Other XR knee BI 2V IMPRESSION: [facility] [employer] Other XR knee BI 2V Status post ACL repa ir on the left. [employer] Other XR knee BI 2V Mild degenerative ch anges are noted in the weightbearing joint spaces of the left. [employer] Other XR knee BI 2V No acute bony injury. [employer] Other XR knee BI 2V Impression dictated by: Rajiv Garcia M.D.09/22/2022 2:17 PM [employer] Other XR knee BI 2V Dictation Location: [place] [address] [employer] Other XR knee BI 2V Transcribed By: [facility] 09/22/22 [facility] [employer] Other XR knee BI 2V Dictated By: Rajiv Garcia II, MD 09/22/22 [facility] [employer] Other XR knee BI 2V Signed By: [employer] Other XR knee BI 2V 09/22/22 [facility] [employer] Other XR shoulder BI min 2Von 09-06 XR shoulder BI min 2V XR/XR shoulder BI min 2V: Shoulder pain [employer] Other XR shoulder BI min 2V XR shoulder BI min 2V 09/22/2022 9:23 AM [employer] Other XR shoulder BI min 2V SIGNS AND SYMPTOMS : Bilateral shoulder pain with limited range of motion [employer] Other XR shoulder BI min 2V PROTOCOL: Frontal, Grashey, scapular Y, and axillary views of the bilateral shoulders [employer] Other XR shoulder BI min 2V COMPARISON: 02/26/2018 [employer] Other XR shoulder BI min 2V There has been bon y resorption of the lateral margin of the clavicle on the right suggesting [employer] Other XR shoulder BI min 2V osteomyelitis is w hich may be degenerative or traumatic. Mild hypertrophy of the AC joint is noted. [employer] Other XR shoulder BI min 2V The glenohumeral j oint is preserved on the right. There is subcortical sclerosis greater tuberosity [employer] Other XR shoulder BI min 2V of the right sugge sting underlying rotator cuff abnormalities. This is new when compared to the [employer] Other XR shoulder BI min 2V prior exam. The visualized right hemithorax is grossly intact. [employer] Other XR shoulder BI min 2V There is mild hype rtrophy of the left acromioclavicular joint. There is mild subcortical sclerosis [employer] Other XR shoulder BI min 2V of the greater tub erosity in the left suggesting underlying rotator cuff abnormalities. The [employer] Other XR shoulder BI min 2V glenohumeral joint is preserved. There is no fracture or dislocation. Visualized left hemithorax is [employer] Other XR shoulder BI min 2V grossly intact. [employer] Other XR shoulder BI min 2V There is partial visualization of intervertebral disc arthroplasty is noted within the lower [employer] Other XR shoulder BI min 2V cervical spine. 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 [employer] Other XR shoulder BI min 2V Rudimentary ribs a re noted at C7, right greater than left [employer] Other XR shoulder BI min 2V Impression dictate d by: Rajiv Garcia M.D.09/22/2022 2:20 PM [employer] Other XR shoulder BI min 2V Transcribed By: KT Thorpe 09/22/22 1420 [employer] Other XR shoulder BI min 2V Dictated By: Rajiv Garcia II, MD 09/22/22 1416 [employer] Other XR shoulder BI min 2V 09/22/22 1427 [employer] Other SCREENING MAMMOGRAM W/RUSSEL, BILATERAL*on 09-14-2022 SCREENING [...] IS VERY IMPORTANT TO YOUR HEALTH. CURRENT [place] [employer] GUIDELINES RECOMMENDS ANNUAL MAMMOGRAPHY BEGINNING AT AGE 42. THIS FACILITY USUALLY USES A REMINDER SYSTEM TO ENSURE ALL POSITIONS RECEIVED REMINDER NOTIFICATIONS AT THE TIME BASED ON THE RECOMMENDATIONS OF THIS EXAM. Report reported and signed by Zaida Diaz on 09/16/2022 1334 Normal [facility] Social Scientist Tobacco Screening.on 022 Adult depression screening assessment No [facility] DO Work Phone: Tobacco use status [facility] b) No [facility] DO Work Phone: COVID Quick Testingon 2021 Result Negative [employer] Other AMYLASEon 04-17-2022 Amylase [Catalytic activity/Vol] 38 U/L Normal 25-115 [facility] Comment on above: Performed By: #### P T #### [facility] [address] [place] [address] Dr. Mirian Velasco CBC AUTO DIFFon 04-17-2022 BASO # 0.1 103/ul Normal 0.0-0.1 [facility] Comment on above: Performed By: #### L ACT #### [facility] [address] [place] [address] Dr. Mirian Velasco Basophils/100 WBC (Bld) 1.0 % Normal 0.2-2.0 [facility] Comment on above: Performed By: #### L ACT #### [facility] [address] [place] [address] Dr. Mirian Velasco EO # 0.2 103/ul Normal 0.0-0.7 [facility] Comment on above: Performed By: #### L ACT #### [facility] [address] [place] [address] Dr. Mirian Velasco Eosinophils/100 WBC (Bld) 3.3 % Normal 0.9-7.0 [facility] Comment on above: Performed By: #### L ACT #### [facility] [address] [place] [address] Dr. Mirian Velasco Erythrocyte distribution width (RBC) [Ratio] 12.0 % Normal 11.0-15.0 [facility] Comment on above: Performed By: #### L ACT #### [facility] [address] [place] [address] Dr. Mirian Velasco Hematocrit (Bld) [Volume fraction] 37.3 % Normal 36.0-48.0 [facility] Comment on above: Performed By: #### L ACT #### [facility] [address] [place] [address] Dr. Mirian Velasco Hemoglobin (Bld) [Mass/Vol] 12.1 g/dL Normal 12.0-16.0 [facility] Comment on above: Performed By: #### L ACT #### [facility] [address] [place] [address] Dr. Mirian Velasco IG # 0.03 10e3/ul Normal 0.00-0.03 [facility] Comment on above: Performed By: #### L ACT #### [facility] [address] [place] [address] Dr. Mirian Velasco IG % 0.4 % Normal 0.0-0.5 [facility] Comment on above: Performed By: #### L ACT #### [facility] [address] [place] [address] Dr. Mirian Velasco LYMPH # 1.8 103/ul Normal 1.2-3.8 [facility] Comment on above: Performed By: #### L ACT #### [facility] [address] [place] [address] Dr. Mirian Velasco Lymphocytes/100 WBC (Bld) 25.2 % Normal 20.5-60.0 [facility] Comment on above: Performed By: #### L ACT #### [facility] [address] [place] [address] Dr. Mirian Velasco MANUAL DIFF REQ NO Normal [facility] Comment on above: Performed By: #### L ACT #### [facility] [address] [place] [address] Dr. Mirian Velasco MCH (RBC) [Entitic mass] 29.0 pg Normal 26.7-34.0 [facility] Comment on above: Performed By: #### L ACT #### [facility] [address] [place] [address] Dr. Mirian Velasco MCHC (RBC) [Mass/Vol] 32.4 g/dL Normal 29.9-35.2 [facility] Comment on above: Performed By: #### L ACT #### [facility] [address] [place] [address] Dr. Mirian Velasco MCV (RBC) [Entitic vol] 89.4 fL Normal 81.0-99.0 [facility] Comment on above: Performed By: #### L ACT #### [facility] [address] [place] [address] [address] Mirian Velasco MONO # 0.4 103/ul Normal 0.3-0.8 [facility] Comment on above: Performed By: #### L ACT #### [facility] [address] [place] [address] [address] Mirian Velasco Monocytes/100 WBC (Bld) 5.8 % Normal 1.7-12.0 [facility] Comment on above: Performed By: #### L ACT #### [facility] [address] [place] [address] [address] Mirian Velasco NEUT # 4.6 103/ul Normal 1.4-6.5 [facility] Comment on above: Performed By: #### L ACT #### [facility] [address] [place] [address] Dr. Mirian Velasco Neutrophils/100 WBC (Bld) 64.3 % Normal 43.0-75.0 [facility] Comment on above: Performed By: #### L ACT #### [facility] [address] [place] [address] [address] Mirian Velasco Platelet mean volume (Bld) [Entitic vol] 8.6 fL Critically low 9.5-13.5 [facility] Comment on above: Performed By: #### L ACT #### [facility] [address] [place] [address] [address] Mirian Velasco PLT 597 103/ul Critically high 150-450 [facility] Comment on above: Performed By: #### L ACT #### [facility] [address] [place] [address] [address] Mirian Velasco RBC 4.17 106/ul Critically low 4.20-5.40 [facility] Comment on above: Performed By: #### L ACT #### [facility] [address] [place] [address] [address] Mirian Velasco WBC 7.2 103/ul Normal 4.0-11.0 [facility] Comment on above: Performed By: #### L ACT #### [facility] [address] [place], [place] [address] ABD/PELVIS WO CONon [...] LORRI TRIPLETT Date: 2022-04-17 11:19 Normal [facility] ER URINE PROFILEon 2 Bilirubin Ql (U) Negative Normal NEGATIVE [facility] Comment on above: Performed By: #### P T #### [facility] [address] [place] [address] [address] Mirian Velasco Clarity (U) CLEAR Normal CLEAR [facility] Comment on above: Performed By: #### P T #### [facility] [address] [place] [address] Dr. Mirian Velasco Color (U) YELLOW Normal YELLOW [facility] Comment on above: Performed By: #### P T #### [facility] [address] [place] [address] Dr. Mirian Velasco ERUAHD A micrscopic examina tion will be performed if indicated. Normal [facility] Comment on above: Performed By: #### P T #### [facility] [address] [place] [address] Dr. Mirian Velasco Glucose Ql (U) Negative Normal NEGATIVE [facility] Comment on above: Performed By: #### P T #### [facility] [address] [place] [address] Dr. Mirian Velasco Hemoglobin Ql (U) Negative Normal NEGATIVE [facility] Comment on above: Performed By: #### P T #### [facility] [address] [place] [address] Dr. Mirian Velasco Ketones Ql (U) Negative Normal NEGATIVE [facility] Comment on above: Performed By: #### P T #### [facility] [address] [place] [address] Dr. Mirian Velasco LEUKOCYTES Negative Normal NEGATIVE [facility] Comment on above: Performed By: #### P T #### [facility] [address] [place] [address] Dr. Mirian Velasco Nitrite Ql (U) Negative Normal NEGATIVE [facility] Comment on above: Performed By: #### P T #### [facility] [address] [place] [address] Dr. Mirian Velasco pH (U) 5.5 [pH] Normal 5-9 [facility] Comment on above: Performed By: #### P T #### [facility] [address] [place] [address] Dr. Mirian Velasco SPEC GRAVITY >=1.030 Abnormal 1.005-<=1. 025 [facility] Comment on above: Performed By: #### P T #### [facility] [address] [place] [address] Dr. Mirian Velasco UA PROTEIN Negative Normal NEGATIVE/ TRACE [facility] Comment on above: Performed By: #### P T #### [facility] [address] [place] [address] Dr. Mirian Velasco UR MICRO IND NOT INDICATED Normal [facility] Comment on above: Performed By: #### P T #### [facility] [address] [place] [address] Dr. Mirian Velasco Urobilinogen Qn (U) 0.2 {Lyubov'U}/dL Normal 0.2 - 1. 0 [facility] Comment on above: Performed By: #### P T #### [facility] [address] [place] [address] Dr. Mirian Velasco LIPASEon 04-17-2022 Lipase [Catalytic activity/Vol] 117.0 U/L Normal 73.0-393.0 [facility] Comment on above: Performed By: #### P T #### [facility] [address] [place] [address] Dr. Mirian Velasco PROF 14(COMP METB)on 022 Albumin [Mass/Vol] 3.5 g/dL Normal 3.4-5.0 [facility] Comment on above: Performed By: #### P T #### [facility] [address] [place] [address] Dr. Mirian Velasco Albumin/Globulin [Mass ratio] 0.9 {ratio} Normal [facility] Comment on above: Performed By: #### P T #### [facility] [address] [place] [address] Dr. Mirian Velasco ALP [Catalytic activity/Vol] 237 U/L Critically high 46-116 [facility] Comment on above: Performed By: #### P T #### [facility] [address] [place] [address] Dr. Mirian Velasco ALT [Catalytic activity/Vol] 53 U/L Normal 14-59 [facility] Comment on above: Performed By: #### P T #### [facility] [address] [place] [address] [address] Mirian Velasco Anion gap [Moles/Vol] 11.0 mmol/L Normal [facility] Comment on above: Performed By: #### P T #### [facility] [address] [place] [address] [address] Mirian Velasco AST [Catalytic activity/Vol] 45 U/L Critically high 15-37 [facility] Comment on above: Performed By: #### P T #### [facility] [address] [place] [address] [address] Mirian Velasco Bilirubin [Mass/Vol] 0.2 mg/dL Normal 0.2-1.0 [facility] Comment on above: Performed By: #### P T #### [facility] [address] [place] [address] [address] Mirian Velasco Calcium [Mass/Vol] 9.3 mg/dL Normal 8.5-10.1 [facility] Comment on above: Performed By: #### P T #### [facility] [address] [place] [address] [address] Mirian Velasco Chloride [Moles/Vol] 105 mmol/L Normal 98-107 [facility] Comment on above: Performed By: #### P T #### [facility] [address] [place] [address] [address] Mirian Velasco CO2 [Moles/Vol] 29.5 mmol/L Normal 21.0-32.0 [facility] Comment on above: Performed By: #### P T #### [facility] [address] [place] [address] Dr. Mirian Velasco Creatinine [Mass/Vol] 0.69 mg/dL Normal 0.55-1.02 [facility] Comment on above: Performed By: #### P T #### [facility] [address] [place] [address] Dr. Mirian Velasco EGFR-AF [place] >110 Normal >=60 [facility] Comment on above: Performed By: #### P T #### [facility] [address] [place] [address] [address] Mirian Velasco EGFR-NON AF [place] >90 Normal >=60 [facility] Comment on above: Performed By: #### P T #### [facility] [address] [place] [address] [address] Mirian Velasco Globulin (S) [Mass/Vol] 4.0 g/dL Normal [facility] Comment on above: Performed By: #### P T #### [facility] [address] [place] [address] [address] Mirian Velasco Glucose [Mass/Vol] 107 mg/dL Critically high 74-106 [facility] Comment on above: Performed By: #### P T #### [facility] [address] [place] [address] [address] Mirian Velasco Potassium [Moles/Vol] 4.5 mmol/L Normal 3.5-5.1 [facility] Comment on above: Performed By: #### P T #### [facility] [address] [place] [address] [address] Mirian Velasco Protein [Mass/Vol] 7.5 g/dL Normal 6.4-8.2 [facility] Comment on above: Performed By: #### P T #### [facility] [address] [place] [address] [address] Mirian Velasco Sodium [Moles/Vol] 141 mmol/L Normal 136-145 [facility] Comment on above: Performed By: #### P T #### [facility] [address] [place] [address] [address] Mirian Velasco Urea nitrogen [Mass/Vol] 11.0 mg/dL Normal 7.0-18.0 [facility] Comment on above: Performed By: #### P T #### [facility] [address] [place] [address] [address] Mirian Velasco Urea nitrogen/Creatinine [Mass ratio] 15.9 mg/mg Normal [facility] Comment on above: Performed By: #### P T #### [facility] [address] [place] [address] [address] Mirian Velasco XR CHEST 1 Von 04-17-2022 XR CHEST 1 V EXAM: Chest x-ray HISTORY: Pain. COMPARISON: 02/20/2022 TECHNIQUE: AP portable upright view of the chest. FINDINGS: Heart and Vascularity are unremarkable. Lungs are free of focal infiltrates. No effusions are noted. Impression: No acute heart or lung disease identified. Electronically authenticated by: NICKI BUTT Date: 2022-04-17 11:03 Normal [facility] Basic metabolic 2000 panelon 04-05-2022 Anion gap [Moles/Vol] 13 mmol/L Normal 9-18 [facility] Comment on above: Order Comment: Speci men Type: BLOOD SPECIMEN Ordering Facility: [facility] Address: [address] [place] [address] Performed By: #### 5 8410-2 #### [facility] CLIA [id number] [address] [place] [address] [place] Calcium [Mass/Vol] 9.0 mg/dL Normal 8.5-10.2 [facility] Comment on above: Order Comment: Speci men Type: BLOOD SPECIMEN Ordering Facility: [facility] Address: [address] [place] [address] Performed By: #### 5 8410-2 #### [facility] CLIA [id number] [address] [place] [address] [place] Chloride [Moles/Vol] 104 mmol/L Normal 97-105 [facility] Comment on above: Order Comment: Speci men Type: BLOOD SPECIMEN Ordering Facility: [facility] [place] Address: [address] [place] [address] Performed By: #### 5 8410-2 #### [facility] CLIA [id number] [address] [place] [address] [place] CO2 [Moles/Vol] 25 mmol/L Normal 22-30 [facility] Comment on above: Order Comment: Speci men Type: BLOOD SPECIMEN Ordering Facility: [facility] [place] Address: [address] [place] [address] Performed By: #### 5 8410-2 #### [facility] CLIA [id number] [address] [place] [address] [place] Creatinine [Mass/Vol] 0.65 mg/dL Normal 0.58-0.96 [facility] Comment on above: Order Comment: Leanne terry Type: BLOOD SPECIMEN Ordering Facility: [facility] Address: [address] [place] [address] Performed By: #### 5 8410-2 #### [facility] CLIA [id number] [address] [place] [address] [place] ESTIMATED GLOMERULAR FILTRATION RATE 108 mL/min/1.73m??? Normal >=60 [facility] Comment on above: Order Comment: Leanne terry Type: BLOOD SPECIMEN Ordering Facility: [facility] [place] Address: [address] [place] [address] Result Comment: Mary mated Glomerular Filtration Rate [...] GFR. Performed By: #### 5 8410-2 #### [facility] CLIA [id number] [address] [place] [address] [place] Glucose [Mass/Vol] 109 mg/dL High 74-99 [facility] Comment on above: Order Comment: Leanne terry Type: BLOOD SPECIMEN Ordering Facility: [facility] [place] Address: [address] [place] [address] Result Comment: The [place] [employer] (ADA) provides guidance for cutoff [...] Standards of Medical Care in Diabetes 2016, [place] [employer]. Diabetes Care. 2016.39(Suppl 1). Performed By: #### 5 8410-2 #### [facility] CLIA [id number] [address] [place] [address] [place] Potassium [Moles/Vol] 3.9 mmol/L Normal 3.7-5.1 [facility] Comment on above: Order Comment: Speci men Type: BLOOD SPECIMEN Ordering Facility: [facility] [place] Address: [address] [place] [address] Performed By: #### 5 8410-2 #### [facility] CLIA [id number] [address] [place] [address] [place] Sodium [Moles/Vol] 142 mmol/L Normal 136-144 [facility] Comment on above: Order Comment: Speci men Type: BLOOD SPECIMEN Ordering Facility: [facility] [place] Address: [address] [place] [address] Performed By: #### 5 8410-2 #### [facility] CLIA [id number] [address] [place] [address] [place] Urea nitrogen [Mass/Vol] 7 mg/dL Normal 7-21 [facility] Comment on above: Order Comment: Speci men Type: BLOOD SPECIMEN Ordering Facility: [facility] [place] Address: [address] [place] [address] Performed By: #### 5 8410-2 #### [facility] CLIA [id number] [address] [place] [address] [place] CBC W Auto Differential pane l (Bld)on 04-05-2022 Basophils (Bld) [#/Vol] 0.05 10*3/uL Normal <0.11 [facility] Comment on above: Order Comment: Speci men Type: BLOOD SPECIMENOrdering Facility: [facility] Address: [address] [place] [address] Performed By: #### B MP #### [place] [address] Basophils/100 WBC (Bld) 0.7 % Normal [facility] Comment on above: Order Comment: Speci men Type: BLOOD SPECIMENOrdering Facility: [facility] [place] Address: [address] [place] [address] Performed By: #### B MP #### [place] [id number] Differential cell count method Nom (Bld) Auto Normal [facility] Comment on above: Order Comment: Speci men Type: BLOOD SPECIMENOrdering Facility: [facility] Address: [address] [place] [address] Performed By: #### B MP #### [place] [id number] Eosinophils (Bld) [#/Vol] 0.55 10*3/uL High <0.46 [facility] Comment on above: Order Comment: Speci men Type: BLOOD SPECIMENOrdering Facility: [facility] Address: [address] [place] [address] Performed By: #### B MP #### [address] Eosinophils/100 WBC (Bld) 8.2 % Normal [facility] Comment on above: Order Comment: Speci men Type: BLOOD SPECIMENOrdering Facility: [facility] [place] Address: [address] [place] [address] Performed By: #### B MP #### [place] [id number] Erythrocyte distribution width (RBC) [Ratio] 12.8 % Normal 11.5-15.0 [facility] Comment on above: Order Comment: Speci men Type: BLOOD SPECIMENOrdering Facility: [facility] [facility] [place] Address: [address] [place] [address] Performed By: #### B MP #### [place] [phone] Hematocrit (Bld) [Volume fraction] 31.1 % Low 36.0-46.0 [facility] Comment on above: Order Comment: Speci men Type: BLOOD SPECIMENOrdering Facility: [facility] [place] Address: [address] [address] Performed By: #### B MP #### [place] [phone] Hemoglobin (Bld) [Mass/Vol] 10.5 g/dL Low 11.5-15.5 [facility] Comment on above: Order Comment: Speci men Type: BLOOD SPECIMENOrdering Facility: [facility] [place] Address: [address] [place] [address] Performed By: #### B MP #### [place] [phone] IMMATURE GRAN % 0.4 % Normal [facility] Comment on above: Order Comment: Speci men Type: BLOOD SPECIMENOrdering Facility: [facility] [place] Address: [address] [place] [address] Performed By: #### B MP #### [place] [phone] IMMATURE GRAN ABS 0.03 k/uL Normal <0.10 [facility] Comment on above: Order Comment: Speci men Type: BLOOD SPECIMENOrdering Facility: [facility] [place] Address: [address] [place] [address] Performed By: #### B MP #### [phone] Lymphocytes (Bld) [#/Vol] 1.47 10*3/uL Normal 1.00-4.00 [facility] Comment on above: Order Comment: Speci men Type: BLOOD SPECIMENOrdering Facility: [facility] [place] Address: [address] [place] [address] Performed By: #### B MP #### [place] [phone] Lymphocytes/100 WBC (Bld) 22.0 % Normal [facility] Comment on above: Order Comment: Speci men Type: BLOOD SPECIMENOrdering Facility: [facility] [place] Address: [address] [place] [address] Performed By: #### B MP #### [place] [phone] MCH (RBC) [Entitic mass] 29.9 pg Normal 26.0-34.0 [facility] Comment on above: Order Comment: Speci men Type: BLOOD SPECIMENOrdering Facility: [facility] [place] Address: [address] [place] [address] Performed By: #### B MP #### [place] [phone] MCHC (RBC) [Mass/Vol] 33.8 g/dL Normal 30.5-36.0 [facility] Comment on above: Order Comment: Speci men Type: BLOOD SPECIMENOrdering Facility: [facility] [place] Address: [address] [place] [address] Performed By: #### B MP #### [phone] MCV (RBC) [Entitic vol] 88.6 fL Normal 80.0-100.0 [facility] Comment on above: Order Comment: Speci men Type: BLOOD SPECIMENOrdering Facility: [facility] [place] Address: [address] [place] [address] Performed By: #### B MP #### [place] [phone] Monocytes (Bld) [#/Vol] 0.50 10*3/uL Normal <0.87 [facility] Comment on above: Order Comment: Speci men Type: BLOOD SPECIMENOrdering Facility: [facility] [place] Address: [address] [place] [address] Performed By: #### B MP #### [place] [phone] Monocytes/100 WBC (Bld) 7.5 % Normal [facility] Comment on above: Order Comment: Speci men Type: BLOOD SPECIMENOrdering Facility: [facility] [place] Address: [address] [place] [address] Performed By: #### B MP #### [place] [phone] Neutrophils (Bld) [#/Vol] 4.08 10*3/uL Normal 1.45-7.50 [facility] Comment on above: Order Comment: Speci men Type: BLOOD SPECIMENOrdering Facility: [facility] [place] Address: [address] [place] [address] Performed By: #### B MP #### [place] [phone] Neutrophils/100 WBC (Bld) 61.2 % Normal [facility] Comment on above: Order Comment: Speci men Type: BLOOD SPECIMENOrdering Facility: [facility] [place] Address: [address] [place] [address] Performed By: #### B MP #### [place] [phone] Nucleated RBC (Bld) [#/Vol] 10*3/uL Normal <0.01 [facility] Comment on above: Order Comment: Speci men Type: BLOOD SPECIMENOrdering Facility: [facility] [place] Address: [address] [place] [address] Performed By: #### B MP #### [phone] Nucleated RBC/100 WBC (Bld) [Ratio] 0.0 /100 WBC Normal [facility] Comment on above: Order Comment: Speci men Type: BLOOD SPECIMENOrdering Facility: [facility] [place] Address: [address] [place] [address] Performed By: #### B MP #### [place] [phone] Platelet mean volume (Bld) [Entitic vol] 8.9 fL Low 9.0-12.7 [facility] Comment on above: Order Comment: Speci men Type: BLOOD SPECIMENOrdering Facility: [facility] [place] Address: [address] [place] [address] Performed By: #### B MP #### [place] [phone] Platelets (Bld) [#/Vol] 455 10*3/uL High 150-400 [facility] Comment on above: Order Comment: Speci men Type: BLOOD SPECIMENOrdering Facility: [facility] [place] Address: [address] [place] [address] Performed By: #### B MP #### [place] [phone] RBC (Bld) [#/Vol] 3.51 10*6/uL Low 3.90-5.20 [facility] Comment on above: Order Comment: Speci men Type: BLOOD SPECIMENOrdering Facility: [facility] [place] Address: [address] [place] [address] Performed By: #### B MP #### [place] [phone] WBC (Bld) [#/Vol] 6.68 10*3/uL Normal 3.70-11.00 [facility] Comment on above: Order Comment: Speci men Type: BLOOD SPECIMENOrdering Facility: [facility] [place] Address: [address] [place] [address] Performed By: #### B MP #### [place] [phone] CNDSon 04-05-2022 CNDS HNO ID: [id number] Author: Jessi Sheets APRN.IMPLEMENTATION PROJECT MANAGER Service: Colorectal Author Type: Nurse Practitioner Type: Discharge Summary Filed: 04/05/2022 11:10 AM Note Text: ----- Attestation signed by Mary Obrien MD at 04/05/2022 12:54 PM [facility] STAFF PHYSICIAN NOTE OF PERSONAL INVOLVEMENT IN CARE I have reviewed the discharge summary documented by the nurse practitioner and I personally participated in the tejada components. I have confirmed and edited as necessary, the [facility] and ROS obtained by others. I have [...] of the summary. CONSULTING TEAMS DURING HOSPITALIZATION: [facility] Treatment Team: Attending Provider: Mary Obrien [...] only. Pain controlled with TAPs and a SINGLE END SEWER. Remained nauseated. POD4 re-advanced to full liquids [...] by mo (more content not included)... Normal [facility] Magnesium SerPl-mCncon 04-05 Magnesium [Mass/Vol] 2.0 mg/dL Normal 1.7-2.3 [facility] Comment on above: Order Comment: Speci men Type: BLOOD SPECIMEN Ordering Facility: [facility] [place] Address: [address] [place], [place] [address] Performed By: #### 5 8410-2 #### [facility] CLIA [id number] NURSING PROGon 04-05-2022 NURSING PROG HNO ID: [id number] Author: Liliana Mayer RN Service: ? 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 This note was completed by: Liliana Mayer [facility] NURSING PROG HNO ID: [id number] Author: Liliana Mayer RN Service: ? Author [...] This note was completed by: Liliana Mayer [facility] NURSING PROG HNO ID: [id number] Author: Eagle Gu, RN Service: ? Author Type: Registered Nurse Type: Nursing Progress Note Filed: 04/04/2022 10:58 PM Note Text: Nursing Progress Note Patient Name: Mary Leal Patient Location: [place] [address]22 Daily Note:04/04/22 2140 Pt is alert and oriented x3. Pt mabulating independently. Surgical sites intact. Pt refusing IVF, pt states she drinks enough water. This note was completed by: Eagle Gu [facility] NUTRITIONon 04-05-2022 NUTRITION HNO ID: [id number] Author: Merced Morales DTR Service: Nutrition Therapy Author Type: Hand Sander Type: Nutrition Filed: 04/05/2022 10:42 AM Note Text: NUTRITION THERAPY COMMUNICATIONS INTERN NOTE SERVICE DATE: 04/05/2022 SERVICE TIME: 9:45 [...] April 05, 2022 TIME: 9:54 AM Normal [facility] Phosphate SerPl-mCncon 04-05 Phosphate [Mass/Vol] 4.6 mg/dL Normal 2.7-4.8 [facility] Comment on above: Order Comment: Speci men Type: BLOOD SPECIMEN Ordering Facility: [facility] [place] Address: [address] [place] [address] Performed By: #### 5 8410-2 #### [facility] CLIA [id number] [address] [place] [address] [place] Basic metabolic 2000 panelon 04-04-2022 Anion gap [Moles/Vol] 10 mmol/L Normal 9-18 [facility] Comment on above: Order Comment: Speci men Type: BLOOD SPECIMENOrdering Facility: [facility] [place] Address: [address] [place] [address] Performed By: #### 2 4321-2, , 2776-11 ####[facility] [id number] [place] [address] [place] Calcium [Mass/Vol] 8.9 mg/dL Normal 8.5-10.2 [facility] Comment on above: Order Comment: Speci men Type: BLOOD SPECIMENOrdering Facility: [facility] [place] Address: [address] [place] [address] Performed By: #### 2 4321-2, , 27705-06 ####[facility] [id number] [place] [address] [place] Chloride [Moles/Vol] 104 mmol/L Normal 97-105 [facility] Comment on above: Order Comment: Specamena terry Type: BLOOD SPECIMENOrdering Facility: [facility] [place] Address: [address] [place], [place] [address] Performed By: #### 2 4321-2, 03233-4, 2776-11 ####[facility] [id number] [place] [address] [facility] CO2 [Moles/Vol] 26 mmol/L Normal 22-30 [facility] Comment on above: Order Comment: Speci men Type: BLOOD SPECIMENOrdering Facility: [facility] [place] Address: [address] [place] [address] Performed By: #### 2 4321-2, , 2776-11 ####[facility] [id number] [place] [address] [place] Creatinine [Mass/Vol] 0.56 mg/dL Low 0.58-0.96 [facility] Comment on above: Order Comment: Speci men Type: BLOOD SPECIMENOrdering Facility: [facility] [place] Address: [address] [place] [address] Performed By: #### 2 4321-2, , 2776-11 ####[facility] [id number] [address] OF [facility] ESTIMATED GLOMERULAR FILTRATION RATE 112 mL/min/1.73m??? Normal >=60 [facility] Comment on above: Order Comment: Speci men Type: BLOOD SPECIMENOrdering Facility: [facility] [place] Address: [address] [place] [address] Result Comment: Mary mated Glomerular Filtration Rate [...] #### 2 4321-2, , 2776-11 ####[facility] [id number] [place] [address] [place] Glucose [Mass/Vol] 112 mg/dL High 74-99 [facility] Comment on above: Order Comment: Leanne harrison Type: BLOOD SPECIMENOrdering Facility: [facility] [place] Address: [address] [place] [address] Result Comment: The [place] [employer] (ADA) provides guidance for cutoff [...] Standards of Medical Care in Diabetes 2016, [place] [employer]. Diabetes Care. 2016.39(Suppl 1). Performed By: #### 2 4321-2, , 2776-11 ####[facility] [id number] [place] [address] [place] Potassium [Moles/Vol] 3.9 mmol/L Normal 3.7-5.1 [facility] Comment on above: Order Comment: Leanne terry Type: BLOOD SPECIMENOrdering Facility: [facility] [place] Address: [address] [place] [address] Performed By: #### 2 4321-2, , 2776-11 ####[facility] [id number] [place] [address] [place] Sodium [Moles/Vol] 140 mmol/L Normal 136-144 [facility] Comment on above: Order Comment: Leanne harrison Type: BLOOD SPECIMENOrdering Facility: [facility] [place] Address: [address] [place] [address] Performed By: #### 2 4321-2, 53334-0, 27705-06 ####[facility] [id number] [place] [address] [place] Urea nitrogen [Mass/Vol] 3 mg/dL Low - [facility] Comment on above: Order Comment: Speci men Type: BLOOD SPECIMENOrdering Facility: [facility] [place] Address: [address] [place] [address] Performed By: #### 2 4321-2, , 2776-11 ####[facility] [id number] [place] [address] [place] CBC W Auto Differential pane l (Bld)on 04-04-2022 Basophils (Bld) [#/Vol] 0.03 10*3/uL Normal <0.11 [facility] Comment on above: Order Comment: Speci men Type: BLOOD SPECIMEN Ordering Facility: [facility] [place] Address: [address] [place] [address] Performed By: #### 5 7021-8 #### [facility] CLIA [id number] [address] [place] [address] [place] Basophils/100 WBC (Bld) 0.5 % Normal [facility] Comment on above: Order Comment: Speci men Type: BLOOD SPECIMEN Ordering Facility: [facility] [place] Address: [address] [place] [address] Performed By: #### 5 7021-8 #### [facility] CLIA [id number] [address] [place] [address] [place] Differential cell count method Nom (Bld) Auto Normal [facility] Comment on above: Order Comment: Speci men Type: BLOOD SPECIMEN Ordering Facility: [facility] [place] Address: [address] [place] [address] Performed By: #### 5 7021-8 #### [facility] CLIA [id number] [address] [place] [address] [place] Eosinophils (Bld) [#/Vol] 0.48 10*3/uL High <0.46 [facility] Comment on above: Order Comment: Speci men Type: BLOOD SPECIMEN Ordering Facility: [facility] [place] Address: [address] [place] [address] Performed By: #### 5 7021-8 #### [facility] CLIA [id number] [address] [place] [address] Eosinophils/100 WBC (Bld) 7.7 % Normal [facility] Comment on above: Order Comment: Speci men Type: BLOOD SPECIMEN Ordering Facility: [facility] [place] Address: [address] [place] [address] Performed By: #### 5 7021-8 #### [facility] CLIA [id number] [address] [place] [address] Erythrocyte distribution width (RBC) [Ratio] 12.7 % Normal 11.5-15.0 [facility] Comment on above: Order Comment: Speci men Type: BLOOD SPECIMEN Ordering Facility: [facility] [place] Address: [address] [place] [address] Performed By: #### 5 7021-8 #### [facility] CLIA [id number] [address] [place] [address] Hematocrit (Bld) [Volume fraction] 31.2 % Low 36.0-46.0 [facility] Comment on above: Order Comment: Speci men Type: BLOOD SPECIMEN Ordering Facility: [facility] [place] Address: [address] [place] [address] Performed By: #### 5 7021-8 #### [facility] CLIA [id number] [address] [place] [address] [place] Hemoglobin (Bld) [Mass/Vol] 10.7 g/dL Low 11.5-15.5 [facility] Comment on above: Order Comment: Speci men Type: BLOOD SPECIMEN Ordering Facility: [facility] [place] Address: [address] [place] [address] Performed By: #### 5 7021-8 #### [facility] CLIA [id number] [address] [place] [address] [place] IMMATURE GRAN % 0.5 % Normal [facility] Comment on above: Order Comment: Speci men Type: BLOOD SPECIMEN Ordering Facility: [facility] [place] Address: [address] [place] [address] Performed By: #### 5 7021-8 #### [facility] CLIA [id number] [address] [place] [address] IMMATURE GRAN ABS 0.03 k/uL Normal <0.10 [facility] Comment on above: Order Comment: Speci men Type: BLOOD SPECIMEN Ordering Facility: [facility] [place] Address: [address] [place] [address] Performed By: #### 5 7021-8 #### [facility] CLIA [id number] [address] [place] [address] Lymphocytes (Bld) [#/Vol] 1.13 10*3/uL Normal 1.00-4.00 [facility] Comment on above: Order Comment: Speci men Type: BLOOD SPECIMEN Ordering Facility: [facility] [place] Address: [address] [place] [address] Performed By: #### 5 7021-8 #### [facility] CLIA [id number] [address] [place] [address] Lymphocytes/100 WBC (Bld) 18.2 % Normal [facility] Comment on above: Order Comment: Speci men Type: BLOOD SPECIMEN Ordering Facility: [facility] [place] Address: [address] [place] [address] Performed By: #### 5 7021-8 #### [facility] CLIA [id number] [address] [place] [address] [place] MCH (RBC) [Entitic mass] 29.9 pg Normal 26.0-34.0 [facility] Comment on above: Order Comment: Speci men Type: BLOOD SPECIMEN Ordering Facility: [facility] [place] Address: [address] [place] [address] Performed By: #### 5 7021-8 #### [facility] CLIA [id number] [place] [address] [place] MCHC (RBC) [Mass/Vol] 34.3 g/dL Normal 30.5-36.0 [facility] Comment on above: Order Comment: Speci men Type: BLOOD SPECIMEN Ordering Facility: [facility] [place] Address: [address] [place] [address] Performed By: #### 5 7021-8 #### [facility] CLIA [id number] [address] [place] [address] [place] MCV (RBC) [Entitic vol] 87.2 fL Normal 80.0-100.0 [facility] Comment on above: Order Comment: Speci men Type: BLOOD SPECIMEN Ordering Facility: [facility] [place] Address: [address] [place] [address] Performed By: #### 5 7021-8 #### [facility] CLIA [id number] [address] [place] [address] [place] Monocytes (Bld) [#/Vol] 0.36 10*3/uL Normal <0.87 [facility] Comment on above: Order Comment: Speci men Type: BLOOD SPECIMEN Ordering Facility: [facility] [place] Address: [address] [place] [address] Performed By: #### 5 7021-8 #### [facility] CLIA [id number] [address] [place] [address] [place] Monocytes/100 WBC (Bld) 5.8 % Normal [facility] Comment on above: Order Comment: Speci men Type: BLOOD SPECIMEN Ordering Facility: [facility] [place] Address: [address] [place] [address] Performed By: #### 5 7021-8 #### [facility] CLIA [id number] [address] [place] [address] [place] Neutrophils (Bld) [#/Vol] 4.18 10*3/uL Normal 1.45-7.50 [facility] Comment on above: Order Comment: Speci men Type: BLOOD SPECIMEN Ordering Facility: [facility] [place] Address: [address] [place] [address] Performed By: #### 5 7021-8 #### [facility] CLIA [id number] [address] [place] [address] [place] Neutrophils/100 WBC (Bld) 67.3 % Normal [facility] Comment on above: Order Comment: Speci men Type: BLOOD SPECIMEN Ordering Facility: [facility] [place] Address: [address] [place] [address] Performed By: #### 5 7021-8 #### [facility] CLIA [id number] [address] [place] [address] [place] Nucleated RBC (Bld) [#/Vol] 10*3/uL Normal <0.01 [facility] Comment on above: Order Comment: Speci men Type: BLOOD SPECIMEN Ordering Facility: [facility] [place] Address: [address] [place] [address] Performed By: #### 5 7021-8 #### [facility] CLIA [id number] [address] [place] [address] [place] Nucleated RBC/100 WBC (Bld) [Ratio] 0.0 /100 WBC Normal [facility] Comment on above: Order Comment: Speci men Type: BLOOD SPECIMEN Ordering Facility: [facility] [place] Address: [address] [place] [address] Performed By: #### 5 7021-8 #### [facility] CLIA [id number] [address] [place] [address] [place] Platelet mean volume (Bld) [Entitic vol] 8.7 fL Low 9.0-12.7 [facility] Comment on above: Order Comment: Speci men Type: BLOOD SPECIMEN Ordering Facility: [facility] [place] Address: [address] [place] [address] Performed By: #### 5 7021-8 #### [facility] CLIA [id number] [address] [place] [address] [place] Platelets (Bld) [#/Vol] 436 10*3/uL High 150-400 [facility] Comment on above: Order Comment: Speci men Type: BLOOD SPECIMEN Ordering Facility: [facility] [place] Address: [address] [place] [address] Performed By: #### 5 7021-8 #### [facility] CLIA [id number] [address] [place] [address] [place] RBC (Bld) [#/Vol] 3.58 10*6/uL Low 3.90-5.20 [facility] Comment on above: Order Comment: Speci men Type: BLOOD SPECIMEN Ordering Facility: [facility] [place] Address: [address] [place] [address] Performed By: #### 5 7021-8 #### [facility] [place] [id number] [place] [address] [place] WBC (Bld) [#/Vol] 6.21 10*3/uL Normal 3.70-11.00 [facility] Comment on above: Order Comment: Speci men Type: BLOOD SPECIMEN Ordering Facility: [facility] [place] Address: [address] [place] [address] Performed By: #### 5 7021-8 #### [facility] [place] [id number] [address] [place] [address] [place] Magnesium SerPl-mCncon 04-04 Magnesium [Mass/Vol] 2.1 mg/dL Normal 1.7-2.3 [facility] Comment on above: Order Comment: Speci men Type: BLOOD SPECIMENOrdering Facility: [facility] [place] Address: [address] [place] [address] Performed By: #### 2 4321-2, 44748-8, 2777-1 ####[facility]ORY[facility] [id number] [place] [address] [place] NURSING PROGon 04-04-2022 NURSING PROG HNO ID: [id number] Author: Dipti Crowley RN Service: Nursing Author Type: Registered Nurse Type: Nursing Progress Note Filed: 04/04/2022 7:47 PM Note Text: Nursing Progress Note Patient Name: Mary Leal Patient Location: [place] [address] Daily Note:Patient refusing further IVF. This note was completed by: [facility] NURSING PROG HNO ID: [id number] Author: Dipti Crowley, MAKI Service: Nursing Author Type: Registered Nurse Type: Nursing Progress Note Filed: 04/04/2022 11:11 AM Note Text: Nursing Progress Note Patient Name: Mary Leal Patient Location: [address]/UI3D-43 Daily Note: Patient up in chair and up ambulating in hallway with steady gait. VSS. RA POx. IVF as ordered. Transverse and Lap sites HOTSHOT SUPERINTENDENT with glue. Dressing to old ostomy site CDI. Abdomen soft and tender. Patient states, feeling much better . Diet advanced, yet patient did not take in 25% of tray. Patient informed RN that I am leaving today. Do what you gotta do. I can do all of this at home . Dr Lamas paged and notified, but post call. Will page SR evaluation advisor. Will continue to monitor. Call light in reach. This note was completed by: [facility] Phosphate SerPl-mCncon 04-04 Phosphate [Mass/Vol] 3.2 mg/dL Normal 2.7-4.8 [facility] Comment on above: Order Comment: Speci men Type: BLOOD SPECIMENOrdering Facility: [facility] [place] Address: [address] [place] [address] Performed By: #### 2 4321-2, 42058-3, 2777-1 ####[facility] [id number] [address] HEALTHon 04-03-2022 ALLIED HEALTH HNO ID: [id number] Author: MALAIKA Martinez Service: ? Author Type: German Teacher Type: Allied Health Filed: 04/03/2022 5:35 PM [...] DATA: Inpatient: see LDA documentation SIGNED BY: MALAKIA Martinez April 03, 2022 5:35 PM Normal [facility] Basic metabolic 2000 panelon 04-03-2022 Anion gap [Moles/Vol] 10 mmol/L Normal 9-18 [facility] Comment on above: Order Comment: Speci men Type: BLOOD SPECIMENOrdering Facility: [facility] [place] Address: [address] [place], [place] [phone] Performed By: #### B MP #### [place] [address] Calcium [Mass/Vol] 8.4 mg/dL Low 8.5-10.2 [facility] Comment on above: Order Comment: Speci men Type: BLOOD SPECIMENOrdering Facility: [facility] [place] Address: [address] [place], [place] [phone] Performed By: #### B MP #### [place] [phone] Chloride [Moles/Vol] 103 mmol/L Normal 97-105 [facility] Comment on above: Order Comment: Speci men Type: BLOOD SPECIMENOrdering Facility: [facility] [place] Address: [address] [place], [place] [address] Performed By: #### B MP #### [place] [phone] CO2 [Moles/Vol] 25 mmol/L Normal 22-30 [facility] Comment on above: Order Comment: Speci men Type: BLOOD SPECIMENOrdering Facility: [facility] [place] Address: [address] [place] [address] Performed By: #### B MP #### [place] [phone] Creatinine [Mass/Vol] 0.60 mg/dL Normal 0.58-0.96 [facility] Comment on above: Order Comment: Speci men Type: BLOOD SPECIMENOrdering Facility: [facility] [place] Address: [address] [place] [address] Performed By: #### B MP #### [place] [phone] ESTIMATED GLOMERULAR FILTRATION RATE 110 mL/min/1.73m??? Normal >=60 [facility] Comment on above: Order Comment: Speci men Type: BLOOD SPECIMENOrdering Facility: [facility] [place] Address: [address] [place] [address] Result Comment: Mary mated Glomerular Filtration Rate [...] GFR. Performed By: #### B MP #### [place] [phone] Glucose [Mass/Vol] 106 mg/dL High 74-99 [facility] Comment on above: Order Comment: Speci men Type: BLOOD SPECIMENOrdering Facility: [facility] [place] Address: [address] [place] [address] Result Comment: The [place] Diabetes Association (ADA) provides guidance for cutoff [...] Standards of Medical Care in Diabetes 2016, [place] [employer]. Diabetes Care. 2016.39(Suppl 1). Performed By: #### B MP #### [place] [phone] Potassium [Moles/Vol] 3.3 mmol/L Low 3.7-5.1 [facility] Comment on above: Order Comment: Speci men Type: BLOOD SPECIMENOrdering Facility: [facility] [place] Address: [address] [place] [address] Performed By: #### B MP #### [place] [phone] Sodium [Moles/Vol] 138 mmol/L Normal 136-144 [facility] Comment on above: Order Comment: Everettei harrison Type: BLOOD SPECIMENOrdering Facility: [facility] [place] Address: [address] [place] [address] Performed By: #### B MP #### [place] [phone] Urea nitrogen [Mass/Vol] 4 mg/dL Low 7-21 [facility] Comment on above: Order Comment: Speci men Type: BLOOD SPECIMENOrdering Facility: [facility] [place] Address: [address] [place] [address] Performed By: #### B MP #### [phone] CBC W Auto Differential pane l (Bld)on 04-03-2022 Basophils (Bld) [#/Vol] 0.03 10*3/uL Normal <0.11 [facility] Comment on above: Order Comment: Speci men Type: BLOOD SPECIMENOrdering Facility: [facility] [place] Address: [address] [place] [address] Performed By: #### B MP #### [place] [phone] Basophils/100 WBC (Bld) 0.4 % Normal [facility] Comment on above: Order Comment: Speci men Type: BLOOD SPECIMENOrdering Facility: [facility] [place] Address: [address] [place] [address] Performed By: #### B MP #### [place] [phone] Differential cell count method Nom (Bld) Auto Normal [facility] Comment on above: Order Comment: Speci men Type: BLOOD SPECIMENOrdering Facility: [facility] [place] Address: [address] [place] [address] Performed By: #### B MP #### [address] Eosinophils (Bld) [#/Vol] 0.48 10*3/uL High <0.46 [facility] Comment on above: Order Comment: Speci men Type: BLOOD SPECIMENOrdering Facility: [facility] [place] Address: [address] [place] [address] Performed By: #### B MP #### [place] [phone] Eosinophils/100 WBC (Bld) 6.5 % Normal [facility] Comment on above: Order Comment: Speci men Type: BLOOD SPECIMENOrdering Facility: [facility] [place] Address: [address] [place] [address] Performed By: #### B MP #### [place] [id number] Erythrocyte distribution width (RBC) [Ratio] 12.5 % Normal 11.5-15.0 [facility] Comment on above: Order Comment: Speci men Type: BLOOD SPECIMENOrdering Facility: [facility] [place] Address: [address] [place] [address] Performed By: #### B MP #### [place] [phone] Hematocrit (Bld) [Volume fraction] 29.5 % Low 36.0-46.0 [facility] Comment on above: Order Comment: Speci men Type: BLOOD SPECIMENOrdering Facility: [facility] [place] Address: [address] [place] [address] Performed By: #### B MP #### [place] [phone] Hemoglobin (Bld) [Mass/Vol] 10.2 g/dL Low 11.5-15.5 [facility] Comment on above: Order Comment: Speci men Type: BLOOD SPECIMENOrdering Facility: [facility] [place] Address: [address] [place] [address] Performed By: #### B MP #### [address] IMMATURE GRAN % 0.5 % Normal [facility] Comment on above: Order Comment: Speci men Type: BLOOD SPECIMENOrdering Facility: [facility] [place] Address: [address] [place] [address] Performed By: #### B MP #### [place] [phone] IMMATURE GRAN ABS 0.04 k/uL Normal <0.10 [facility] Comment on above: Order Comment: Speci men Type: BLOOD SPECIMENOrdering Facility: [facility] [place] Address: [address] [place] [address] Performed By: #### B MP #### [place] [phone] Lymphocytes (Bld) [#/Vol] 1.11 10*3/uL Normal 1.00-4.00 [facility] Comment on above: Order Comment: Speci men Type: BLOOD SPECIMENOrdering Facility: [facility] [place] Address: [address] [place] [address] Performed By: #### B MP #### [place] [phone] Lymphocytes/100 WBC (Bld) 15.0 % Normal [facility] Comment on above: Order Comment: Speci men Type: BLOOD SPECIMENOrdering Facility: [facility] [place] Address: [address] [place] [address] Performed By: #### B MP #### [place] [phone] MCH (RBC) [Entitic mass] 30.1 pg Normal 26.0-34.0 [facility] Comment on above: Order Comment: Speci men Type: BLOOD SPECIMENOrdering Facility: [facility] [place] Address: [address] [place] [address] Performed By: #### B MP #### [place] [phone] MCHC (RBC) [Mass/Vol] 34.6 g/dL Normal 30.5-36.0 [facility] Comment on above: Order Comment: Speci men Type: BLOOD SPECIMENOrdering Facility: [facility] [place] Address: [address] [place] [address] Performed By: #### B MP #### [place] [phone] MCV (RBC) [Entitic vol] 87.0 fL Normal 80.0-100.0 [facility] Comment on above: Order Comment: Speci men Type: BLOOD SPECIMENOrdering Facility: [facility] [place] Address: [address] [place] [address] Performed By: #### B MP #### [place] [phone] Monocytes (Bld) [#/Vol] 0.46 10*3/uL Normal <0.87 [facility] Comment on above: Order Comment: Speci men Type: BLOOD SPECIMENOrdering Facility: [facility] [place] Address: [address] [place] [address] Performed By: #### B MP #### [place] [phone] Monocytes/100 WBC (Bld) 6.2 % Normal [facility] Comment on above: Order Comment: Speci men Type: BLOOD SPECIMENOrdering Facility: [facility] [place] Address: [address] [place] [address] Performed By: #### B MP #### [place] [address] Neutrophils (Bld) [#/Vol] 5.27 10*3/uL Normal 1.45-7.50 [facility] Comment on above: Order Comment: Speci men Type: BLOOD SPECIMENOrdering Facility: [facility] [place] Address: [address] [place] [address] Performed By: #### B MP #### [phone] Neutrophils/100 WBC (Bld) 71.4 % Normal [facility] Comment on above: Order Comment: Speci men Type: BLOOD SPECIMENOrdering Facility: [facility] [place] Address: [address] [place] [address] Performed By: #### B MP #### [phone] Nucleated RBC (Bld) [#/Vol] 10*3/uL Normal <0.01 [facility] Comment on above: Order Comment: Speci men Type: BLOOD SPECIMENOrdering Facility: [facility] [place] Address: [address] [place] [address] Performed By: #### B MP #### [id number] Nucleated RBC/100 WBC (Bld) [Ratio] 0.0 /100 WBC Normal [facility] Comment on above: Order Comment: Speci men Type: BLOOD SPECIMENOrdering Facility: [facility] [place] Address: [address] [place] [address] Performed By: #### B MP #### [place] [phone] Platelet mean volume (Bld) [Entitic vol] 8.6 fL Low 9.0-12.7 [facility] Comment on above: Order Comment: Speci men Type: BLOOD SPECIMENOrdering Facility: [facility] [place] Address: [address] [place] [address] Performed By: #### B MP #### [place] [phone] Platelets (Bld) [#/Vol] 342 10*3/uL Normal 150-400 [facility] Comment on above: Order Comment: Speci men Type: BLOOD SPECIMENOrdering Facility: [facility] [place] Address: [address] [place] [address] Performed By: #### B MP #### [place] [phone] RBC (Bld) [#/Vol] 3.39 10*6/uL Low 3.90-5.20 [facility] Comment on above: Order Comment: Speci men Type: BLOOD SPECIMENOrdering Facility: [facility] [place] Address: [address] [place] [address] Performed By: #### B MP #### [place] [address] WBC (Bld) [#/Vol] 7.39 10*3/uL Normal 3.70-11.00 [facility] Comment on above: Order Comment: Speci men Type: BLOOD SPECIMENOrdering Facility: [facility] [place] Address: [address] [place] [address] Performed By: #### B MP #### [place] [address] CONSULT PROGon 04-03-2022 CONSULT PROG HNO ID: [id number] Author: Sarwat Huddleston PA-C Service: Pain Management Author Type: Physician Director Home Type: Consult Progress Note Filed: 04/03/2022 8:39 [...] level is 7/10. TAPS Ropi 0.1% at 0//?each 04/01/22 At this time she report most [...] pain ? PRIMARY SERVICE: Colorectal ? INTERVAL HPI:?Maryjonathan Leal is a 51 year old female [...] and solution: Yes. Solution Ropi 0.1% at 0/?e. Adjuvant Pain Medication: See below Current Facility-Administered [...] appears comf (more content not included)... Normal [facility] CT ABD/PEL W IVCONon 022 CT [...] Lower thorax: Visualized lung bases are clear. [employer]stone Cleaner (topogram) images: No additional findings. IMPRESSION: Postsurgical [...] collection is present in the lower pelvis Renal Case Manager: CAPRI Transcribe Date/Time: Apr 03 2022 9:00P Dictated by : SHELBY ESPINOSA MD This examination was interpreted and the report reviewed and electronically signed by: SHELBY ESPINOSA MD on Apr 03 2022 9:12PM EST [id number] [facility] Magnesium SerPl-mCncon 04-03 Magnesium [Mass/Vol] 1.6 mg/dL Low 1.7-2.3 [facility] Comment on above: Order Comment: Speci men Type: BLOOD SPECIMENOrdering Facility: [facility] [place] Address: [address] [place] [address] Performed By: #### B #### [place] [phone] NURSING PROGon 04-03-2022 NURSING PROG HNO ID: [id number] Author: Annette Ford RN Service: ? Author Type: Registered Nurse Type: Nursing Progress Note Filed: 04/03/2022 9:39 PM Note Text: Nursing Progress Note Patient Name: Mary Leal Patient Location: [place] [address]-22 Daily Note: 2129: Pt declined to have all oral medications. They just go right through me. I cannot take them. . Made RN aware. This note was completed by: Annette Ford [facility] NURSING PROG HNO ID: [id number] Author: Dipti Crowley RN Service: Nursing Author [...] with no success. SR paged with events ([phone]). Awaiting further orders. This note was completed by: Dipti Crowley [facility] NURSING PROG HNO ID: [id number] Author: Dipti Crowley RN Service: Nursing Author [...] bolus completed. Oral potassium in process. Dr. Laams aware. Will continue to monitor. This note was completed by: [facility] HNO ID: [id number] Author: Chava Remy RN Service: PICC Team [...] 03, 2022 TIME: 8:37 AM PAGER/CONTACT #: [facility] NURSING PROG HNO ID: [id number] Author: Kev Leone RN Service: ? Author Type: Registered Nurse Type: Nursing Progress Note Filed: 04/03/2022 3:50 AM Note Text: Nursing Progress Note Patient Name: Mary Leal Patient Location: [place] [address] [address] Daily Note: 2100: Pt refusing all PO meds at this time, states she's concerned that she's not digesting them properly. Paan currently being controlled with bilateral blocks and PRN IV pain medication. This note was completed by: Kev Leone [facility] Phosphate SerPl-mCncon 04-03 Phosphate [Mass/Vol] 3.3 mg/dL Normal 2.7-4.8 [facility] Comment on above: Order Comment: Speci men Type: BLOOD SPECIMENOrdering Facility: [facility] [place] Address: [address] [place] [id number] Performed By: #### B MP #### [address] [address] ALLIED HEALTHon 04-02-2022 ALLIED HEALTH HNO ID: [id number] Author: Tri Zee RT(R) Service: Radiology Author [...] RT Ban(R) April 02, 2022 9:12 AM [facility] CONSULT PROGon 04-02-2022 CONSULT PROG HNO ID: [id number] Author: Sarwat Huddleston PA-C Service: Pain Management Author Type: Physician Director Home Type: Consult Progress Note Filed: 04/02/2022 9:00 [...] Hematocrit 29.3 5 (more content not included)... [facility] NURSING PROGon 04-02-2022 NURSING PROG HNO ID: [id number] Author: Dipti Crowley, RN Service: Nursing Author Type: Registered Nurse Type: Nursing Progress Note Filed: 04/02/2022 1:23 PM Note Text: Nursing Progress Note Patient Name: Mary Leal Patient Location: [address]/JG8A-[id number] Daily Note: Patient AANDOx3. VSS. RA POx. [...] This note was completed by: Dipti Crowley [facility] XR ABDOMEN 1V SUPINEon 04-02 XR ABDOMEN [...] may be of help for further evaluation. Renal Case Manager: CAPRI Transcribe Date/Time: Apr 02 2022 9:16A Dictated by : JOAQUIN BRYANT MD This examination was interpreted and the report reviewed and electronically signed by: JOAQUIN BRYANT MD on Apr 02 2022 9:19AM EST [id number] Normal [facility] Basic metabolic 2000 panelon 04-01-2022 Anion gap [Moles/Vol] 9 mmol/L Normal 9-18 [facility] Comment on above: Order Comment: Speci men Type: BLOOD SPECIMENOrdering Facility: [facility] [place] Address: [address] [place] [address] Performed By: #### B MP #### [place] [phone] Calcium [Mass/Vol] 7.9 mg/dL Low 8.5-10.2 [facility] Comment on above: Order Comment: Speci men Type: BLOOD SPECIMENOrdering Facility: [facility] [place] Address: [address] [place] [address] Performed By: #### B MP #### [place] [id number] Chloride [Moles/Vol] 106 mmol/L High 97-105 [facility] Comment on above: Order Comment: Speci men Type: BLOOD SPECIMENOrdering Facility: [facility] [place] Address: [address] [place] [address] Performed By: #### B MP #### [id number] CO2 [Moles/Vol] 26 mmol/L Normal 22-30 [facility] Comment on above: Order Comment: Speci men Type: BLOOD SPECIMENOrdering Facility: [facility] [place] Address: [address] [place] [address] Performed By: #### B MP #### [phone] Creatinine [Mass/Vol] 0.68 mg/dL Normal 0.58-0.96 [facility] Comment on above: Order Comment: Leanne terry Type: BLOOD SPECIMENOrdering Facility: [facility] [place] Address: [address] [place] [address] Performed By: #### B MP #### [place] [address] ESTIMATED GLOMERULAR FILTRATION RATE 107 mL/min/1.73m??? Normal >=60 [facility] Comment on above: Order Comment: Leanne terry Type: BLOOD SPECIMENOrdering Facility: [facility] [place] Address: [address] [place], [place] [address] Result Comment: Mary mated Glomerular Filtration Rate [...] GFR. Performed By: #### B MP #### [place] [address] Glucose [Mass/Vol] 99 mg/dL Normal 74-99 [facility] Comment on above: Order Comment: Leanne terry Type: BLOOD SPECIMENOrdering Facility: [facility] [place] Address: [address] [place] [address] Result Comment: The [place] [employer] (ADA) provides guidance for cutoff [...] Standards of Medical Care in Diabetes 2016, [place] [employer]. Diabetes Care. 2016.39(Suppl 1). Performed By: #### B MP #### [place] [phone] Potassium [Moles/Vol] 3.7 mmol/L Normal 3.7-5.1 [facility] Comment on above: Order Comment: Speci men Type: BLOOD SPECIMENOrdering Facility: [facility] [place] Address: [address] [place] [address] Performed By: #### B MP #### [place] [phone] Sodium [Moles/Vol] 141 mmol/L Normal 136-144 [facility] Comment on above: Order Comment: Speci men Type: BLOOD SPECIMENOrdering Facility: [facility] [place] Address: [address] [place] [address] Performed By: #### B MP #### [place] [phone] Urea nitrogen [Mass/Vol] 4 mg/dL Low 7-21 [facility] Comment on above: Order Comment: Speci men Type: BLOOD SPECIMENOrdering Facility: [facility] [place] Address: [address] [place] [address] Performed By: #### B MP #### [place] [phone] CBC panel Auto (Bld)on 04-01 Erythrocyte distribution width (RBC) [Ratio] 12.4 % Normal 11.5-15.0 [facility] Comment on above: Order Comment: Speci men Type: BLOOD SPECIMEN Ordering Facility: [facility] [place] Address: [address] [place] [address] Performed By: #### 5 8410-2 #### [facility] CLIA [id number] [address] [place] [address] [place] Hematocrit (Bld) [Volume fraction] 29.3 % Low 36.0-46.0 [facility] Comment on above: Order Comment: Speci men Type: BLOOD SPECIMEN Ordering Facility: [facility] [place] Address: [address] [place] [address] Performed By: #### 5 8410-2 #### [facility] CLIA [id number] [address] [place] [address] STATES OF [facility] Hemoglobin (Bld) [Mass/Vol] 9.6 g/dL Low 11.5-15.5 [facility] Comment on above: Order Comment: Speci men Type: BLOOD SPECIMEN Ordering Facility: [facility] [place] Address: [address] [place] [address] Performed By: #### 5 8410-2 #### [facility] CLIA [id number] [address] [place] [address] OF [facility] MCH (RBC) [Entitic mass] 29.4 pg Normal 26.0-34.0 [facility] Comment on above: Order Comment: Speci men Type: BLOOD SPECIMEN Ordering Facility: [facility] [place] Address: [address] [place] [address] Performed By: #### 5 8410-2 #### [facility] CLIA [id number] [address] [place] [address] MCHC (RBC) [Mass/Vol] 32.8 g/dL Normal 30.5-36.0 [facility] Comment on above: Order Comment: Speci men Type: BLOOD SPECIMEN Ordering Facility: [facility] [place] Address: [address] [place] [address] Performed By: #### 5 8410-2 #### [facility] CLIA [id number] [address] [place] [address] [place] MCV (RBC) [Entitic vol] 89.9 fL Normal 80.0-100.0 [facility] Comment on above: Order Comment: Speci men Type: BLOOD SPECIMEN Ordering Facility: [facility] [place] Address: [address] [place] [address] Performed By: #### 5 8410-2 #### [facility] CLIA [id number] [address] [place] [address] OF [facility] Nucleated RBC (Bld) [#/Vol] 10*3/uL Normal <0.01 [facility] Comment on above: Order Comment: Speci men Type: BLOOD SPECIMEN Ordering Facility: [facility] [place] Address: [address] [place] [address] Performed By: #### 5 8410-2 #### [facility] CLIA [id number] [address] [place] [address] [place] Platelet mean volume (Bld) [Entitic vol] 8.9 fL Low 9.0-12.7 [facility] Comment on above: Order Comment: Speci men Type: BLOOD SPECIMEN Ordering Facility: [facility] [place] Address: [address] [place] [address] Performed By: #### 5 8410-2 #### [facility] CLIA [id number] [address] [place] [address] [place] Platelets (Bld) [#/Vol] 282 10*3/uL Normal 150-400 [facility] Comment on above: Order Comment: Speci men Type: BLOOD SPECIMEN Ordering Facility: [facility] [place] Address: [address] [place] [address] Performed By: #### 5 8410-2 #### [facility] CLIA [id number] [address] [place] [address] [place] RBC (Bld) [#/Vol] 3.26 10*6/uL Low 3.90-5.20 [facility] Comment on above: Order Comment: Speci men Type: BLOOD SPECIMEN Ordering Facility: [facility] [place] Address: [address] [place] [address] Performed By: #### 5 8410-2 #### [facility] CLIA [id number] [address] [place] [address] [place] WBC (Bld) [#/Vol] 7.39 10*3/uL Normal 3.70-11.00 [facility] Comment on above: Order Comment: Speci men Type: BLOOD SPECIMEN Ordering Facility: [facility] [place] Address: [address] [place] [address] Performed By: #### 5 8410-2 #### [facility] CLIA [id number] [address] [place] [address] [place] CONSULT PROGon 04-01-2022 CONSULT PROG HNO ID: [id number] Author: Joslyn Jain APRN.KWESI Service: Pain Management [...] 0.67 Sod (more content not included)... Normal [facility] Magnesium SerPl-mCncon 04-01 Magnesium [Mass/Vol] 1.7 mg/dL Normal 1.7-2.3 [facility] Comment on above: Order Comment: Speci men Type: BLOOD SPECIMENOrdering Facility: [facility] [place] Address: [address] [place] [phone] Performed By: #### B #### [id number] [place] [address] NURSING PROGon 04-01-2022 NURSING PROG HNO ID: [id number] Author: Eagle Gu RN Service: ? Author [...] This note was completed by: Eagle Gu [facility] NURSING PROG HNO ID: [id number] Author: Eagle Gu RN Service: ? Author Type: Registered Nurse Type: Nursing Progress Note Filed: 04/01/2022 1:52 AM Note Text: Nursing Progress Note Patient Name: Mary Leal Patient Location: / Daily Note:03/31/222030 Pt is alert and oriented x3. Surgical sites intact. Nerve blocks x2 intact. This note was completed by: [facility] Phosphate SerPl-mCncon 04-01 Phosphate [Mass/Vol] 2.8 mg/dL Normal 2.7-4.8 [facility] Comment on above: Order Comment: Leanne terry Type: BLOOD SPECIMENOrdering Facility: [facility] [place] Address: [address] [place] [phone] Performed By: #### B #### [facility] [address] [place] [address] Basic metabolic 2000 panelon 03-31-2022 Anion gap [Moles/Vol] 10 mmol/L Normal 9-18 [facility] Comment on above: Order Comment: Speci men Type: BLOOD SPECIMEN Ordering Facility: [facility] [place] Address: [address] [place] [address] Performed By: #### 5 8410-2 #### [facility] CLIA [id number] [address] [place] [address] [place] Calcium [Mass/Vol] 8.4 mg/dL Low 8.5-10.2 [facility] Comment on above: Order Comment: Speci men Type: BLOOD SPECIMEN Ordering Facility: [facility] [place] Address: [address] [place] [address] Performed By: #### 5 8410-2 #### [facility] CLIA [id number] [address] [place] [address] [place] Chloride [Moles/Vol] 107 mmol/L High 97-105 [facility] Comment on above: Order Comment: Speci men Type: BLOOD SPECIMEN Ordering Facility: [facility] [place] Address: [address] [place] [address] Performed By: #### 5 8410-2 #### [facility] CLIA [id number] [address] [place] [address] [place] CO2 [Moles/Vol] 23 mmol/L Normal 22-30 [facility] Comment on above: Order Comment: Speci men Type: BLOOD SPECIMEN Ordering Facility: [facility] [place] Address: [address] [place] [address] Performed By: #### 5 8410-2 #### [facility] CLIA [id number] [address] [place] [address] [place] Creatinine [Mass/Vol] 0.67 mg/dL Normal 0.58-0.96 [facility] Comment on above: Order Comment: Speci men Type: BLOOD SPECIMEN Ordering Facility: [facility] [place] Address: [address] [place] [address] Performed By: #### 5 8410-2 #### [facility] CLIA [id number] [address] [place] [address] [place] ESTIMATED GLOMERULAR FILTRATION RATE 107 mL/min/1.73m??? Normal >=60 [facility] Comment on above: Order Comment: Leanne terry Type: BLOOD SPECIMEN Ordering Facility: [facility] [place] Address: [address] [place], [place] [phone] Result Comment: Mary mated Glomerular Filtration Rate [...] GFR. Performed By: #### 5 8410-2 #### [facility] CLIA [id number] [address] [place] [address] [place] Glucose [Mass/Vol] 84 mg/dL Normal 74-99 [facility] Comment on above: Order Comment: Leanne terry Type: BLOOD SPECIMEN Ordering Facility: [facility] [place] Address: [address] [place] [address] Result Comment: The [place] [employer] (ADA) provides guidance for cutoff [...] Standards of Medical Care in Diabetes 2016, [place] [employer]. Diabetes Care. 2016.39(Suppl 1). Performed By: #### 5 8410-2 #### [facility] CLIA [id number] [address] [place] [address] [place] Potassium [Moles/Vol] 3.8 mmol/L Normal 3.7-5.1 [facility] Comment on above: Order Comment: Leanne terry Type: BLOOD SPECIMEN Ordering Facility: [facility] [place] Address: [address] [address] Performed By: #### 5 8410-2 #### [facility] CLIA [id number] [address] [place] [address] [place] Sodium [Moles/Vol] 140 mmol/L Normal 136-144 [facility] Comment on above: Order Comment: Speci men Type: BLOOD SPECIMEN Ordering Facility: [facility] [place] Address: [address] [place] [address] Performed By: #### 5 8410-2 #### [facility] CLIA [id number] [address] [place] [address] [place] Urea nitrogen [Mass/Vol] 11 mg/dL Normal 7-21 [facility] Comment on above: Order Comment: Speci men Type: BLOOD SPECIMEN Ordering Facility: [facility] [place] Address: [address] [place] [address] Performed By: #### 5 8410-2 #### [facility] CLIA [id number] [address] [place] [address] [place] CBC W Auto Differential pane l (Bld)on 03-31-2022 Basophils (Bld) [#/Vol] 0.03 10*3/uL Normal <0.11 [facility] Comment on above: Order Comment: Speci men Type: BLOOD SPECIMEN Ordering Facility: [facility] [place] Address: [address] [place] [address] Performed By: #### 5 7021-8 #### [facility] CLIA [id number] [address] [place] [address] [place] Basophils/100 WBC (Bld) 0.4 % Normal [facility] Comment on above: Order Comment: Speci men Type: BLOOD SPECIMEN Ordering Facility: [facility] [place] Address: [address] [place] [address] Performed By: #### 5 7021-8 #### [facility] CLIA [id number] [address] [place] [address] [place] Differential cell count method Nom (Bld) Auto Normal [facility] Comment on above: Order Comment: Speci men Type: BLOOD SPECIMEN Ordering Facility: [facility] [place] Address: [address] [address] Performed By: #### 5 7021-8 #### [facility] CLIA [id number] [address] [place] [address] [place] Eosinophils (Bld) [#/Vol] 0.38 10*3/uL Normal <0.46 [facility] Comment on above: Order Comment: Speci men Type: BLOOD SPECIMEN Ordering Facility: [facility] [place] Address: [address] [place] [address] Performed By: #### 5 7021-8 #### [facility] CLIA [id number] [address] [place] [address] [place] Eosinophils/100 WBC (Bld) 4.4 % Normal [facility] Comment on above: Order Comment: Speci men Type: BLOOD SPECIMEN Ordering Facility: [facility] [place] Address: [address] [place] [address] Performed By: #### 5 7021-8 #### [facility] CLIA [id number] [address] [place] [address] [place] Erythrocyte distribution width (RBC) [Ratio] 12.6 % Normal 11.5-15.0 [facility] Comment on above: Order Comment: Speci men Type: BLOOD SPECIMEN Ordering Facility: [facility] [place] Address: [address] [place] [address] Performed By: #### 5 7021-8 #### [facility] CLIA [id number] [address] [place] [address] [place] Hematocrit (Bld) [Volume fraction] 30.0 % Low 36.0-46.0 [facility] Comment on above: Order Comment: Speci men Type: BLOOD SPECIMEN Ordering Facility: [facility] [place] Address: [address] [place] [address] Performed By: #### 5 7021-8 #### [facility] CLIA [id number] [address] [place] [address] [place] Hemoglobin (Bld) [Mass/Vol] 9.9 g/dL Low 11.5-15.5 [facility] Comment on above: Order Comment: Speci men Type: BLOOD SPECIMEN Ordering Facility: [facility] [place] Address: [address] [place] [address] Performed By: #### 5 7021-8 #### [facility] CLIA [id number] [address] [place] [address] IMMATURE GRAN % 0.4 % Normal [facility] Comment on above: Order Comment: Speci men Type: BLOOD SPECIMEN Ordering Facility: [facility] [place] Address: [address] [place] [address] Performed By: #### 5 7021-8 #### [facility] CLIA [id number] [address] [place] [address] IMMATURE GRAN ABS 0.03 k/uL Normal <0.10 [facility] Comment on above: Order Comment: Speci men Type: BLOOD SPECIMEN Ordering Facility: [facility] [place] Address: [address] [place] [address] Performed By: #### 5 7021-8 #### [facility] CLIA [id number] [address] [place] [address] [place] Lymphocytes (Bld) [#/Vol] 1.24 10*3/uL Normal 1.00-4.00 [facility] Comment on above: Order Comment: Speci men Type: BLOOD SPECIMEN Ordering Facility: [facility] [place] Address: [address] [place] [address] Performed By: #### 5 7021-8 #### [facility] CLIA [id number] [address] [place] [address] Lymphocytes/100 WBC (Bld) 14.5 % Normal [facility] Comment on above: Order Comment: Speci men Type: BLOOD SPECIMEN Ordering Facility: [facility] [place] Address: [address] [place] [address] Performed By: #### 5 7021-8 #### [facility] CLIA [id number] [address] [place] [address] [place] MCH (RBC) [Entitic mass] 29.6 pg Normal 26.0-34.0 [facility] Comment on above: Order Comment: Speci men Type: BLOOD SPECIMEN Ordering Facility: [facility] [place] Address: [address] [place] [address] Performed By: #### 5 7021-8 #### [facility] CLIA [id number] [address] [place] [address] [place] MCHC (RBC) [Mass/Vol] 33.0 g/dL Normal 30.5-36.0 [facility] Comment on above: Order Comment: Speci men Type: BLOOD SPECIMEN Ordering Facility: [facility] [place] Address: [address] [place] [address] Performed By: #### 5 7021-8 #### [facility] CLIA [id number] [address] [place] [address] [place] MCV (RBC) [Entitic vol] 89.8 fL Normal 80.0-100.0 [facility] Comment on above: Order Comment: Speci men Type: BLOOD SPECIMEN Ordering Facility: [facility] [place] Address: [address] [place] [address] Performed By: #### 5 7021-8 #### [facility] CLIA [id number] [address] [place] [address] [facility] [place] Monocytes (Bld) [#/Vol] 0.48 10*3/uL Normal <0.87 [facility] Comment on above: Order Comment: Speci men Type: BLOOD SPECIMEN Ordering Facility: [facility] [place] Address: [address] [place] [address] Performed By: #### 5 7021-8 #### [facility] CLIA [id number] [address] [place] [address] Monocytes/100 WBC (Bld) 5.6 % Normal [facility] Comment on above: Order Comment: Speci men Type: BLOOD SPECIMEN Ordering Facility: [facility] [place] Address: [address] [place] [address] Performed By: #### 5 7021-8 #### [facility] CLIA [id number] [address] [place] [address] [facility] [place] Neutrophils (Bld) [#/Vol] 6.41 10*3/uL Normal 1.45-7.50 [facility] Comment on above: Order Comment: Speci men Type: BLOOD SPECIMEN Ordering Facility: [facility] [place] Address: [address] [place] [address] Performed By: #### 5 7021-8 #### [facility] CLIA [id number] [address] [place] [address] [place] Neutrophils/100 WBC (Bld) 74.7 % Normal [facility] Comment on above: Order Comment: Speci men Type: BLOOD SPECIMEN Ordering Facility: [facility] [place] Address: [address] [place] [address] Performed By: #### 5 7021-8 #### [facility] CLIA [id number] [address] [place] [address] [place] Nucleated RBC (Bld) [#/Vol] 10*3/uL Normal <0.01 [facility] Comment on above: Order Comment: Speci men Type: BLOOD SPECIMEN Ordering Facility: [facility] [place] Address: [address] [place] [address] Performed By: #### 5 7021-8 #### [facility] CLIA [id number] [address] [place] [address] [place] Nucleated RBC/100 WBC (Bld) [Ratio] 0.0 /100 WBC Normal [facility] Comment on above: Order Comment: Speci men Type: BLOOD SPECIMEN Ordering Facility: [facility] [place] Address: [address] [place] [address] Performed By: #### 5 7021-8 #### [facility] CLIA [id number] [address] [place] [address] [place] Platelet mean volume (Bld) [Entitic vol] 9.0 fL Normal 9.0-12.7 [facility] Comment on above: Order Comment: Speci men Type: BLOOD SPECIMEN Ordering Facility: [facility] [place] Address: [address] [place] [address] Performed By: #### 5 7021-8 #### [facility] CLIA [id number] [address] [place] [address] [place] Platelets (Bld) [#/Vol] 246 10*3/uL Normal 150-400 [facility] Comment on above: Order Comment: Speci men Type: BLOOD SPECIMEN Ordering Facility: [facility] [place] Address: [address] [place] [address] Performed By: #### 5 7021-8 #### [facility] CLIA [id number] [address] [place] [address] [place] RBC (Bld) [#/Vol] 3.34 10*6/uL Low 3.90-5.20 [facility] Comment on above: Order Comment: Speci men Type: BLOOD SPECIMEN Ordering Facility: [facility] [place] Address: [address] [place] [address] Performed By: #### 5 7021-8 #### [facility] CLIA [id number] [address] [place] [address] [place] WBC (Bld) [#/Vol] 8.57 10*3/uL Normal 3.70-11.00 [facility] Comment on above: Order Comment: Speci men Type: BLOOD SPECIMEN Ordering Facility: [facility] [place] Address: [address] [place] [address] Performed By: #### 5 7021-8 #### [facility] CLIA [id number] [address] [place] [address] OF [facility] CONSULT PROGon 03-31-2022 CONSULT PROG HNO ID: [id number] Author: Joslyn Jain APRN.IMPLEMENTATION PROJECT MANAGER Service: Pain Management Author Type: Nurse Practitioner [...] PLAN/Recs: 1. Continue TAPS X 2 to 0/8/30/2 each, will likely remove it on Monday [...] AND U (more content not included)... Normal [facility] Magnesium SerPl-mCncon 03-31 Magnesium [Mass/Vol] 1.6 mg/dL Low 1.7-2.3 [facility] Comment on above: Order Comment: Speci men Type: BLOOD SPECIMEN Ordering Facility: [facility] [place] Address: [address] [place] [address] Performed By: #### 5 8410-2 #### [facility] CLIA [id number] [address] [place] [address] OF [facility] NURSING PROGon 03-31-2022 NURSING PROG HNO ID: [id number] Author: Daisy Amaya RN Service: Nursing Author Type: Registered Nurse Type: Nursing Progress Note Filed: 03/31/2022 4:56 PM Note Text: Nursing Progress Note Patient Name: Mary Leal Patient Location: PK/ Daily Note: 0931- Pt A+Ox3. Up with standby assist. Ambulated pod multiple times. Laps intact. Old ostomy site WNL. Pt having liquid brown BMs. Voiding adq. No nausea, cp, or sob. Taps infusing per JAN. Pain controlled with PRN oxy. No further needs at this time. This note was completed by: Daisy Amaya [facility] NURSING PROG HNO ID: [id number] Author: Mariluz Carnes, RN Service: Nursing Author Type: Registered Nurse Type: Nursing Progress Note Filed: 03/30/2022 11:47 PM Note Text: Nursing Progress Note Patient Name: Mary Leal Patient Location: [address]/EV[address]X-72 Daily Note: Pt's BP 90/52. Patient asymptomatic. Surgery made aware. Order in for [employer] LR 500CC's. This note was completed by: Mariluz Carnes [facility] Phosphate SerPl-mCncon 03-31 Phosphate [Mass/Vol] 2.7 mg/dL Normal 2.7-4.8 [facility] Comment on above: Order Comment: Specamena terry Type: BLOOD SPECIMEN Ordering Facility: [facility] [place] Address: [address] [place] [address] Performed By: #### 5 8410-2 #### [facility] CLIA [id number] [address] [place] [address] [place] Basic metabolic 2000 panelon 03-30-2022 Anion gap [Moles/Vol] 10 mmol/L Normal 9-18 [facility] Comment on above: Order Comment: Speci men Type: BLOOD SPECIMEN Ordering Facility: [facility] [place] Address: [address] [place] [address] Performed By: #### 1 9123-9, 2777-1, 47488-3 #### [facility] CLIA [id number] [address] [place] [address] [place] Calcium [Mass/Vol] 8.5 mg/dL Normal 8.5-10.2 [facility] Comment on above: Order Comment: Speci men Type: BLOOD SPECIMEN Ordering Facility: [facility] [place] Address: [address] [place], [place] [address] Performed By: #### 1 9123-9, 2776-11, 36029-1 #### [facility] CLIA [id number] [address] [place] [address] [place] Chloride [Moles/Vol] 103 mmol/L Normal 97-105 [facility] Comment on above: Order Comment: Speci men Type: BLOOD SPECIMEN Ordering Facility: [facility] [place] Address: [address] [place] [address] Performed By: #### 1 9123-9, 2776-11, #### [facility] CLIA [id number] [address] [place] [address] [place] CO2 [Moles/Vol] 24 mmol/L Normal 22-30 [facility] Comment on above: Order Comment: Speci men Type: BLOOD SPECIMEN Ordering Facility: [facility] [place] Address: [address] [place] [address] Performed By: #### 1 9123-9, 2776-11, #### [facility] CLIA [id number] [address] [place] [address] [place] Creatinine [Mass/Vol] 0.69 mg/dL Normal 0.58-0.96 [facility] Comment on above: Order Comment: Speci men Type: BLOOD SPECIMEN Ordering Facility: [facility] [place] Address: [address] [place] [address] Performed By: #### 1 9123-9, 27705-06, 76350-1 #### [facility] CLIA [id number] [address] [place] [address] [place] ESTIMATED GLOMERULAR FILTRATION RATE 107 mL/min/1.73m??? Normal >=60 [facility] Comment on above: Order Comment: Speci men Type: BLOOD SPECIMEN Ordering Facility: [facility] [place] Address: [address] [place] [address] Result Comment: Mary mated Glomerular Filtration Rate [...] GFR. Performed By: #### 1 9123-9, 2777-1, 19097-9 #### [facility] CLIA [id number] [place] [address] [place] Glucose [Mass/Vol] 117 mg/dL High 74-99 [facility] Comment on above: Order Comment: Leanne terry Type: BLOOD SPECIMEN Ordering Facility: [facility] [place] Address: [address] [address] Result Comment: The [place] [employer] (ADA) provides guidance for cutoff [...] Standards of Medical Care in Diabetes 2016, [place] [employer]. Diabetes Care. 2016.39(Suppl 1). Performed By: #### 1 9123-9, 2777-, 75689-0 #### [facility] CLIA [id number] [place] [address] [place] Potassium [Moles/Vol] 3.9 mmol/L Normal 3.7-5.1 [facility] Comment on above: Order Comment: Leanne terry Type: BLOOD SPECIMEN Ordering Facility: [facility] [place] Address: [address] [id number] Performed By: #### 1 9123-9, 2777-1, 93331-5 #### [facility] CLIA [id number] [place] [address] [place] Sodium [Moles/Vol] 137 mmol/L Normal 136-144 [facility] Comment on above: Order Comment: Speci men Type: BLOOD SPECIMEN Ordering Facility: [facility] [place] Address: [address] [place] [address] Performed By: #### 1 9123-9, 2777-1, 28631-5 #### [facility] CLIA [id number] [address] [place] [address] [place] Urea nitrogen [Mass/Vol] 13 mg/dL Normal 7-21 [facility] Comment on above: Order Comment: Speci men Type: BLOOD SPECIMEN Ordering Facility: [facility] [place] Address: [address] [place] [address] Performed By: #### 1 9123-9, 2777-1, 59072-5 #### [facility] CLIA [id number] [address] [place] [address] [place] CBC panel Auto (Bld)on 03-30 Erythrocyte distribution width (RBC) [Ratio] 12.8 % Normal 11.5-15.0 [facility] Comment on above: Order Comment: Speci men Type: BLOOD SPECIMEN Ordering Facility: [facility] [place] Address: [address] [place] [address] Performed By: #### 5 8410-2 #### [facility] CLIA [id number] [address] [place] [address] [place] Hematocrit (Bld) [Volume fraction] 35.0 % Low 36.0-46.0 [facility] Comment on above: Order Comment: Speci men Type: BLOOD SPECIMEN Ordering Facility: [facility] [place] Address: [address] [place] [address] Performed By: #### 5 8410-2 #### [facility] CLIA [id number] [address] [place] [address] [place] Hemoglobin (Bld) [Mass/Vol] 11.8 g/dL Normal 11.5-15.5 [facility] Comment on above: Order Comment: Speci men Type: BLOOD SPECIMEN Ordering Facility: [facility] [place] Address: [address] [place] [address] Performed By: #### 5 8410-2 #### [facility] CLIA [id number] [address] [place] [address] MCH (RBC) [Entitic mass] 30.6 pg Normal 26.0-34.0 [facility] Comment on above: Order Comment: Speci men Type: BLOOD SPECIMEN Ordering Facility: [facility] [place] Address: [address] [place] [address] Performed By: #### 5 8410-2 #### [facility] CLIA [id number] [address] [place] [address] [place] MCHC (RBC) [Mass/Vol] 33.7 g/dL Normal 30.5-36.0 [facility] Comment on above: Order Comment: Speci men Type: BLOOD SPECIMEN Ordering Facility: [facility] [place] Address: [address] [place] [address] Performed By: #### 5 8410-2 #### [facility] CLIA [id number] [address] [place] [address] [place] MCV (RBC) [Entitic vol] 90.7 fL Normal 80.0-100.0 [facility] Comment on above: Order Comment: Speci men Type: BLOOD SPECIMEN Ordering Facility: [facility] [place] Address: [address] [place] [address] Performed By: #### 5 8410-2 #### [facility] CLIA [id number] [address] [place] [address] Nucleated RBC (Bld) [#/Vol] 10*3/uL Normal <0.01 [facility] Comment on above: Order Comment: Speci men Type: BLOOD SPECIMEN Ordering Facility: [facility] [place] Address: [address] [place] [address] Performed By: #### 5 8410-2 #### [facility] CLIA [id number] [address] [place] [address] [place] Platelet mean volume (Bld) [Entitic vol] 8.9 fL Low 9.0-12.7 [facility] Comment on above: Order Comment: Speci men Type: BLOOD SPECIMEN Ordering Facility: [facility] [place] Address: [address] [place] [address] Performed By: #### 5 8410-2 #### [facility] CLIA [id number] [address] [place] [address] [place] Platelets (Bld) [#/Vol] 293 10*3/uL Normal 150-400 [facility] Comment on above: Order Comment: Speci men Type: BLOOD SPECIMEN Ordering Facility: [facility] [place] Address: [address] [place] [address] Performed By: #### 5 8410-2 #### [facility] CLIA [id number] [address] [place] [address] [place] RBC (Bld) [#/Vol] 3.86 10*6/uL Low 3.90-5.20 [facility] Comment on above: Order Comment: Speci men Type: BLOOD SPECIMEN Ordering Facility: [facility] [place] Address: [address] [place] [address] Performed By: #### 5 8410-2 #### [facility] CLIA [id number] [address] [place] [address] [place] WBC (Bld) [#/Vol] 11.25 10*3/uL High 3.70-11.00 [facility] Comment on above: Order Comment: Speci men Type: BLOOD SPECIMEN Ordering Facility: [facility] [place] Address: [address] [place] [address] Performed By: #### 5 8410-2 #### [facility] CLIA [id number] [address] [place] [address] [place] CONSULT PROGon 03-30-2022 CONSULT PROG HNO ID: [id number] Author: Joslyn Jain APRN.IMPLEMENTATION PROJECT MANAGER Service: Pain Management Author Type: Nurse Practitioner [...] eGFR >= (more content not included)... Normal [facility] Magnesium SerPl-mCncon 03-30 Magnesium [Mass/Vol] 1.6 mg/dL Low 1.7-2.3 [facility] Comment on above: Order Comment: Leanne terry Type: BLOOD SPECIMEN Ordering Facility: [facility] [place] Address: [address] [place] [address] Performed By: #### 1 9123-9, 2777-1, 30603-7 #### [facility] CLIA [id number] [place] [address] [place] OF [facility] Phosphate SerPl-mCncon 03-30 Phosphate [Mass/Vol] 2.9 mg/dL Normal 2.7-4.8 [facility] Comment on above: Order Comment: Leanne terry Type: BLOOD SPECIMEN Ordering Facility: [facility] [place] Address: [address] [place] [address] Performed By: #### 1 9123-9, 2777-1, 78770-0 #### [facility] CLIA [id number] [address] [place] [address] [place] ANES POSTPROC EVALon 05-24-2 022 ANES POSTPROC EVAL HNO ID: [id number] Author: Nathanael Craig DO Service: Anesthesiology Author Type: Anesthesiologist Type: Anesthesia Postprocedure Evaluation Filed: 03/29/2022 8:29 AM Note Text: POST ANESTHESIA EVALUATION NOTE : 1970 Procedure Summary Date: 03/28/22 Room / Location: OR / FV OR Anesthesia Start: 907 Anesthesia [...] March 29, 2022 TIME: 8:29 AM CSN: [id number] Normal [facility] Basic metabolic 2000 panelon 03-29-2022 Anion gap [Moles/Vol] 9 mmol/L Normal 9-18 [facility] Comment on above: Order Comment: Speci men Type: BLOOD SPECIMEN Ordering Facility: [facility] [place] Address: [address] [place], [place] [id number] Performed By: #### 5 8410-2 #### [facility] CLIA [id number] [address] [place] [address] [place] Calcium [Mass/Vol] 7.9 mg/dL Low 8.5-10.2 [facility] Comment on above: Order Comment: Speci men Type: BLOOD SPECIMEN Ordering Facility: [facility] [place] Address: [address] [place] [address] Performed By: #### 5 8410-2 #### [facility] CLIA [id number] [address] [place] [address] [place] Chloride [Moles/Vol] 105 mmol/L Normal 97-105 [facility] Comment on above: Order Comment: Speci men Type: BLOOD SPECIMEN Ordering Facility: [facility] [place] Address: [address] [place] [address] Performed By: #### 5 8410-2 #### [facility] CLIA [id number] [address] [place] [address] [place] CO2 [Moles/Vol] 24 mmol/L Normal 22-30 [facility] Comment on above: Order Comment: Speci men Type: BLOOD SPECIMEN Ordering Facility: [facility] [place] Address: [address] [place] [address] Performed By: #### 5 8410-2 #### [facility] CLIA [id number] [address] [place] [address] [place] Creatinine [Mass/Vol] 0.70 mg/dL Normal 0.58-0.96 [facility] Comment on above: Order Comment: Speci men Type: BLOOD SPECIMEN Ordering Facility: [facility] [place] Address: [address] [place] [address] Performed By: #### 5 8410-2 #### [facility] CLIA [id number] [address] [place] [address] [place] ESTIMATED GLOMERULAR FILTRATION RATE 106 mL/min/1.73m??? Normal >=60 [facility] Comment on above: Order Comment: Speci men Type: BLOOD SPECIMEN Ordering Facility: [facility] [place] Address: [address] [place], [place] [phone] Result Comment: Mary mated Glomerular Filtration Rate [...] #### 5 8410-2 #### [facility] CLIA [id number] [address] [place] [address] [place] Glucose [Mass/Vol] 92 mg/dL Normal 74-99 [facility] Comment on above: Order Comment: Leanne terry Type: BLOOD SPECIMEN Ordering Facility: [facility] [place] Address: [address] [place] [address] Result Comment: The [place] [employer] (ADA) provides guidance for cutoff [...] Standards of Medical Care in Diabetes 2016, [place] [employer]. Diabetes Care. 2016.39(Suppl 1). Performed By: #### 5 8410-2 #### [facility] CLIA [id number] [address] [place] [address] [place] Potassium [Moles/Vol] 4.1 mmol/L Normal 3.7-5.1 [facility] Comment on above: Order Comment: Leanne terry Type: BLOOD SPECIMEN Ordering Facility: [facility] [place] Address: [address] [place] [address] Performed By: #### 5 8410-2 #### [facility] CLIA [id number] [address] [place] [address] [place] Sodium [Moles/Vol] 138 mmol/L Normal 136-144 [facility] Comment on above: Order Comment: Speci men Type: BLOOD SPECIMEN Ordering Facility: [facility] [place] Address: [address] [place] [address] Performed By: #### 5 8410-2 #### [facility] CLIA [id number] [address] [place] [address] [place] Urea nitrogen [Mass/Vol] 12 mg/dL Normal 7-21 [facility] Comment on above: Order Comment: Speci men Type: BLOOD SPECIMEN Ordering Facility: [facility] [place] Address: [address] [place] [address] Performed By: #### 5 8410-2 #### [facility] CLIA [id number] [address] [place] [address] [place] CBC W Auto Differential pane l (Bld)on 03-29-2022 Basophils (Bld) [#/Vol] 0.04 10*3/uL Normal <0.11 [facility] Comment on above: Order Comment: Speci men Type: BLOOD SPECIMEN Ordering Facility: [facility] [place] Address: [address] [place] [address] Performed By: #### 5 7021-8 #### [facility] CLIA [id number] [address] [place] [address] [place] Basophils/100 WBC (Bld) 0.6 % Normal [facility] Comment on above: Order Comment: Speci men Type: BLOOD SPECIMEN Ordering Facility: [facility] [place] Address: [address] [place] [address] Performed By: #### 5 7021-8 #### [facility] CLIA [id number] [address] [place] [address] [place] Differential cell count method Nom (Bld) Auto Normal [facility] Comment on above: Order Comment: Speci men Type: BLOOD SPECIMEN Ordering Facility: [facility] [place] Address: [address] [place] [address] Performed By: #### 5 7021-8 #### [facility] CLIA [id number] [address] [place] [address] [place] Eosinophils (Bld) [#/Vol] 0.16 10*3/uL Normal <0.46 [facility] Comment on above: Order Comment: Speci men Type: BLOOD SPECIMEN Ordering Facility: [facility] [place] Address: [address] [place] [address] Performed By: #### 5 7021-8 #### [facility] CLIA [id number] [address] [place] [address] [place] Eosinophils/100 WBC (Bld) 2.3 % Normal [facility] Comment on above: Order Comment: Speci men Type: BLOOD SPECIMEN Ordering Facility: [facility] [place] Address: [address] [place] [address] Performed By: #### 5 7021-8 #### [facility] CLIA [id number] [address] [place] [address] [place] Erythrocyte distribution width (RBC) [Ratio] 12.8 % Normal 11.5-15.0 [facility] Comment on above: Order Comment: Speci men Type: BLOOD SPECIMEN Ordering Facility: [facility] [place] Address: [address] [place] [address] Performed By: #### 5 7021-8 #### [facility] CLIA [id number] [address] [place] [address] [place] Hematocrit (Bld) [Volume fraction] 32.3 % Low 36.0-46.0 [facility] Comment on above: Order Comment: Speci men Type: BLOOD SPECIMEN Ordering Facility: [facility] [place] Address: [address] [place] [address] Performed By: #### 5 7021-8 #### [facility] CLIA [id number] [address] [place] [address] [place] Hemoglobin (Bld) [Mass/Vol] 10.7 g/dL Low 11.5-15.5 [facility] Comment on above: Order Comment: Speci men Type: BLOOD SPECIMEN Ordering Facility: [facility] [place] Address: [address] [place] [address] Performed By: #### 5 7021-8 #### [facility] CLIA [id number] [address] [place] [address] IMMATURE GRAN % 0.3 % Normal [facility] Comment on above: Order Comment: Speci men Type: BLOOD SPECIMEN Ordering Facility: [facility] [place] Address: [address] [place] [address] Performed By: #### 5 7021-8 #### [facility] CLIA [id number] [address] [place] [address] IMMATURE GRAN ABS <0.03 Normal <0.10 [facility] Comment on above: Order Comment: Speci men Type: BLOOD SPECIMEN Ordering Facility: [facility] [place] Address: [address] [place] [address] Performed By: #### 5 7021-8 #### [facility] CLIA [id number] [address] [place] [address] [place] Lymphocytes (Bld) [#/Vol] 1.39 10*3/uL Normal 1.00-4.00 [facility] Comment on above: Order Comment: Speci men Type: BLOOD SPECIMEN Ordering Facility: [facility] [place] Address: [address] [place] [address] Performed By: #### 5 7021-8 #### [facility] CLIA [id number] [address] [place] [address] Lymphocytes/100 WBC (Bld) 19.7 % Normal [facility] Comment on above: Order Comment: Speci men Type: BLOOD SPECIMEN Ordering Facility: [facility] [place] Address: [address] [place] [address] Performed By: #### 5 7021-8 #### [facility] CLIA [id number] [address] [place] [address] [place] MCH (RBC) [Entitic mass] 29.8 pg Normal 26.0-34.0 [facility] Comment on above: Order Comment: Speci men Type: BLOOD SPECIMEN Ordering Facility: [facility] [place] Address: [address] [place] [address] Performed By: #### 5 7021-8 #### [facility] CLIA [id number] [address] [place] [address] [place] MCHC (RBC) [Mass/Vol] 33.1 g/dL Normal 30.5-36.0 [facility] Comment on above: Order Comment: Speci men Type: BLOOD SPECIMEN Ordering Facility: [facility] [place] Address: [address] [place] [address] Performed By: #### 5 7021-8 #### [facility] CLIA [id number] [address] [place] [address] [place] MCV (RBC) [Entitic vol] 90.0 fL Normal 80.0-100.0 [facility] Comment on above: Order Comment: Speci men Type: BLOOD SPECIMEN Ordering Facility: [facility] [place] Address: [address] [place] [address] Performed By: #### 5 7021-8 #### [facility] CLIA [id number] [address] [place] [address] [place] Monocytes (Bld) [#/Vol] 0.55 10*3/uL Normal <0.87 [facility] Comment on above: Order Comment: Speci men Type: BLOOD SPECIMEN Ordering Facility: [facility] [place] Address: [address] [place] [address] Performed By: #### 5 7021-8 #### [facility] CLIA [id number] [address] [place] [address] [place] Monocytes/100 WBC (Bld) 7.8 % Normal [facility] Comment on above: Order Comment: Speci men Type: BLOOD SPECIMEN Ordering Facility: [facility] [place] Address: [address] [place] [address] Performed By: #### 5 7021-8 #### [facility] CLIA [id number] [address] [place] [address] [place] Neutrophils (Bld) [#/Vol] 4.88 10*3/uL Normal 1.45-7.50 [facility] Comment on above: Order Comment: Speci men Type: BLOOD SPECIMEN Ordering Facility: [facility] [place] Address: [address] [address] Performed By: #### 5 7021-8 #### [facility] CLIA [id number] [address] [place] [address] [place] Neutrophils/100 WBC (Bld) 69.3 % Normal [facility] Comment on above: Order Comment: Speci men Type: BLOOD SPECIMEN Ordering Facility: [facility] [place] Address: [address] [place] [address] Performed By: #### 5 7021-8 #### [facility] CLIA [id number] [address] [place] [address] [place] Nucleated RBC (Bld) [#/Vol] 10*3/uL Normal <0.01 [facility] Comment on above: Order Comment: Speci men Type: BLOOD SPECIMEN Ordering Facility: [facility] [place] Address: [address] [place] [address] Performed By: #### 5 7021-8 #### [facility] CLIA [id number] [address] [place] [address] [place] Nucleated RBC/100 WBC (Bld) [Ratio] 0.0 /100 WBC Normal [facility] Comment on above: Order Comment: Speci men Type: BLOOD SPECIMEN Ordering Facility: [facility] [place] Address: [address] [place] [address] Performed By: #### 5 7021-8 #### [facility] CLIA [id number] [address] [place] [address] [place] Platelet mean volume (Bld) [Entitic vol] 9.0 fL Normal 9.0-12.7 [facility] Comment on above: Order Comment: Speci men Type: BLOOD SPECIMEN Ordering Facility: [facility] [place] Address: [address] [place] [address] Performed By: #### 5 7021-8 #### [facility] CLIA [id number] [address] [place] [address] [place] Platelets (Bld) [#/Vol] 241 10*3/uL Normal 150-400 [facility] Comment on above: Order Comment: Speci men Type: BLOOD SPECIMEN Ordering Facility: [facility] [place] Address: [address] [place] [address] Performed By: #### 5 7021-8 #### [facility] CLIA [id number] [address] [place] [address] [place] RBC (Bld) [#/Vol] 3.59 10*6/uL Low 3.90-5.20 [facility] Comment on above: Order Comment: Speci men Type: BLOOD SPECIMEN Ordering Facility: [facility] [place] Address: [address] [place] [address] Performed By: #### 5 7021-8 #### [facility] CLIA [id number] [address] [place] [address] [place] WBC (Bld) [#/Vol] 7.04 10*3/uL Normal 3.70-11.00 [facility] Comment on above: Order Comment: Speci men Type: BLOOD SPECIMEN Ordering Facility: [facility] [place] Address: [address] [place] [address] Performed By: #### 5 7021-8 #### [facility] CLIA [id number] [address] [place] [address] OF [facility] CONSULT PROGon 03-29-2022 CONSULT PROG HNO ID: [id number] Author: Joslyn Jain APRN.IMPLEMENTATION PROJECT MANAGER Service: Pain Management Author Type: Nurse Practitioner [...] is on liq diet, currently on Dilaudid SINGLE END SEWER at 0/0.2/10/6 last 2 hours 06/27 bolus [...] No Relieved: Yes - NOW with increase SINGLE END SEWER and Repositioning and SINGLE END SEWER Is patient satisfied with pain control: Yes [...] mL PERIPHERAL NERVE CATHETER CONTINUOUS - HYDROmorphone SINGLE END SEWER 0.5 mg/mL in NaCl 0.9% 100 mL [...] % 69.3 (more content not included)... Normal [facility] Magnesium SerPl-mCncon 03-29 Magnesium [Mass/Vol] 1.4 mg/dL Low 1.7-2.3 [facility] Comment on above: Order Comment: Speci men Type: BLOOD SPECIMEN Ordering Facility: [facility] [place] Address: [address] [place] [address] Performed By: #### 5 8410-2 #### [facility] CLIA [id number] [address] [place] [address] OF [facility] NURSING PROGon 03-29-2022 NURSING PROG HNO ID: [id number] Author: Dipti Crowley RN Service: Nursing Author Type: Registered Nurse Type: Nursing Progress Note Filed: 03/29/2022 2:00 PM Note Text: Nursing Progress Note Patient Name: Mary Leal Patient Location: [place] [address] Daily Note: Patient VSS. RA POx. Pain level better controlled now that SINGLE END SEWER initiated. B/L Ropivacaine Tap Blocks with dressings [...] Plan of care round completed with Dr. Clrak and staff. This note was completed by: Dipti [facility] NURSING PROG HNO ID: [id number] Author: Kev Leone RN Service: ? Author Type: Registered Nurse Type: Nursing Progress Note Filed: 03/29/2022 3:53 AM Note Text: Nursing Progress Note Patient Name: Mary Leal Patient Location: [place] [address] Daily Note: 0350: Pt states she is in 10/10 pain, pt has no PO pain meds ordered, page sent to surgery resident This note was completed by: Kev Leone [facility] PT EDon 03-29-2022 PT ED HNO ID: [id number] Author: Merced Morales DTR Service: Nutrition Therapy Author Type: Hand Sander Type: Patient Education Filed: 03/29/2022 11:05 AM [...] 29, 2022 TIME: 11:04 AM PAGER: Normal [facility] Phosphate SerPl-mCncon 03-29 Phosphate [Mass/Vol] 2.9 mg/dL Normal 2.7-4.8 [facility] Comment on above: Order Comment: Speci men Type: BLOOD SPECIMEN Ordering Facility: [facility] [place] Address: [address] [place] [address] Performed By: #### 5 8410-2 #### [facility] CLIA [id number] OF [place] ANES PRE-OPon 03-28-2022 ANES PRE-OP HNO ID: [id number] Author: Anibal Bertrand MD Service: Anesthesiology Author [...] LUNGS every 4 hours if needed - hoojnkcqtav-vgducqzvg-uds anter (TRELEGY ELLIPTA) 100-62.5-25 mcg Inhale 1 [...] (FLONASE) 50 mcg/actuation nasal spray Use 1 [place] in each nostril on (more content not included)... [facility] BRIEF OP NOTon 03-28-2022 BRIEF OP NOT HNO ID: [id number] Author: Nita Lamas MD Service: Colorectal Author Type: Fellow Type: Brief Op Note Filed: 03/28/2022 3:43 PM Note Text: BRIEF OPERATIVE NOTE - COLORECTAL SURGERY Log ID: [id number] Surgery/Procedure Date: 03/28/2022 Incision/Procedure Start Time: 9:47 AM Incision Close/Procedure End Time: 3:40 PM Surgeon(s) and Director Home(s): Surgeon(s) and Role: * Mary Obrien MD [...] DATE: March 28, 2022 TIME: 3:42 PM [facility] NURSING PROGon 03-28-2022 NURSING PROG HNO ID: [id number] Author: Merced Lay RN Service: ? Author Type: Registered Nurse Type: Nursing Progress Note Filed: 03/28/2022 6:56 PM Note Text: Nursing Progress Note Patient Name: Mary Leal Patient Location: [place] [address] [address] Transfer Note: Patient transferred into room/unit [facility] in stable condition. Actions taken: No futher actions taken at this time. Will continue to monitor and check with patient. Paged surgical team. Pt has TAP blocks, but orders were discontinued from PACU. New orders for blocks need to be placed in eMAR. Awaiting call back or orders. This note was completed by: Merced Lay [facility] NURSING PROG HNO ID: [id number] Author: Monica Nicole RN Service: Nursing Author Type: Registered Nurse Type: Nursing Progress Note Filed: 03/28/2022 6:35 PM Note Text: Nursing Progress Note Patient Name: Mary Leal Patient Location: [facility] OR POOL/[facility] OR POOL Daily Note: 1750: Dr. Novak notified of patients increase in heart rate from arrival to post op. Patient HR now maintaining in the 120s. 1830: advanced manufacturing vice president rounding at patient bedside. Dressing and abdomen assessed- drainage to be expected on island dressing. Notified him of patients HR running high and notified that patient normally takes 50mg atenolol but held today for surgery. Patient's pain managed and other VS stable at this time. advanced manufacturing vice president is OK with patient going to regular nursing floor at this time. Family updated. This note was completed by: Monica Nicole [facility] NURSING PROG HNO ID: [id number] Author: Vianney Chacon RN Service: Nursing Author [...] (RECOMMENDATION): None Electronically Signed By: Vianney Chacon [facility] OPERATIVE NOon 03-28-2022 OPERATIVE NO HNO ID: [id number] Author: Mary Obrien MD Service: Colorectal Author Type: Physician Type: Operative Report Filed: 03/28/2022 5:06 PM Note Text: COLON AND RECTAL SURGERY OPERATIVE REPORT PATIENT NAME: Mary Leal ADMISSION DATE: 03/28/2022 LOG ID: [id number] SURGERY/PROCEDURE DATE: 03/28/2022 INCISION/PROCEDURE START TIME: 9:47 AM INCISION CLOSE/PROCEDURE END TIME: 3:40 PM AGE: [age] year old SEX: female SURGEON(S)/PROCEDURALIST( S) AND GLASS BLOWING LATHE OPERATOR(S): Surgeon(s) and Role: * Mary Obrien MD [...] The abdome (more content not included)... Normal [facility] SURGICAL PATHOLOGYon 022 CASE REPORT Normal [facility] Comment on above: Order Comment: Speci men Type: BLOOD SPECIMEN Ordering Facility: [facility] [place] Address: [address] [place] [phone] Result Comment: Surg ica Pathology Report Case: [id number] Authorizing Provider: Mary Obrien MD Collected: 03/28/2022 01:43 PM Ordering Location: [facility] Received: 03/28/2022 04:10 PM Operating Room Pathologist: Areli Rodriguez MD Specimen: COLON RESECTION, terminal ileum with ileostomy Performed By: #### 5 7021-8 #### [facility] CLIA [id number] CLINICAL HISTORY ILEORECTAL ANASTOMOS IS, TAKEDOWN OF ILEOSTOMY Normal [facility] Comment on above: Order Comment: Speci men Type: BLOOD SPECIMEN Ordering Facility: [facility] [place] Address: [address] [place] [address] Performed By: #### 5 7021-8 #### [facility] CLIA [id number] DIAGNOSIS COMMENT The histologic findi ngs [...] of associated inflammation or infectious organisms. Normal [facility] Comment on above: Order Comment: Speci men Type: BLOOD SPECIMEN Ordering Facility: [facility] [place] Address: [address] [place] [address] Performed By: #### 5 7021-8 #### [facility] CLIA [id number] FINAL DIAGNOSIS Normal [facility] Comment on above: Order Comment: Speci men Type: BLOOD SPECIMEN Ordering Facility: [facility] [place] Address: [address] [place] [address] Result Comment: [place] n and terminal ileum with ileostomy, resection: - Colon with patchy active colitis, submucosal fibrosis, acute serositis, and fibrovascular adhesions (see comment). - Small bowel with focal transmural defect, acute serositis, fibrovascular adhesions, and changes consistent with ileostomy site. - Benign lymph nodes. JEL 03/31/2022 Performed By: #### 5 7021-8 #### [facility] CLIA [id number] OF [facility] FINAL PERFORMING LAB Normal [facility] Comment on above: Order Comment: Speci men Type: BLOOD SPECIMEN Ordering Facility: [facility] [place] Address: [address] [place], [place] [phone] Result Comment: Diag nostic interpretation performed at [facility], [address] [place] [address] CLIA# [id number] Dredge Pipe Installer: Rajiv Anderson M.D. Performed By: #### 5 7021-8 #### [facility] CLIA [id number] [address] [place] [address] GROSS DESCRIPTION Normal [facility] Comment on above: Order Comment: Speci men Type: BLOOD SPECIMEN Ordering Facility: [facility] [place] Address: [address] [place] [address] Result Comment: A. C OLON RESECTION. Received [...] attached soft tissue reveals multiple jaimes-pink to jamies-red lymph nodes which measure up to 1.2 [...] diverticula. The serosa is jaimes-pink and smooth. Atomic Welder sections are submitted from distal to proximal [...] examination performed at [facility], [address] [place] [address] CLIA # [id number] Performed By: #### 5 7021-8 #### [facility] CLIA [id number] [address] [place] [address] [place] Q - CBC W/DIFF AND PLTon BASOABS 59 cells/uL Normal 0-200 [facility] Social Scientist Comment on above: Order Comment: [facility] performed at: [facility] [employer] [facility], [address] [place] [address], [address] [place] [address], [phone], Dredge Pipe Installer: Gopal Hamilton MD [facility] Date/Time: [facility] Results Received Date/Time: [facility] Reported Date/Time: Performed By: #### 9 68T, 88135M, %8293, 68401P, 6399, 496X #### [facility] Default [address] [place] [address] Basophils/100 WBC (Bld) 1.0 % Normal [facility] Specialist Comment on above: Order Comment: [facility] performed at: [employer] [employer] [facility], [address] [facility], [address] [place] [address], [address] [place] [address], Dredge Pipe Installer: Gopal Hamilton MD [facility] Date/Time: [facility] Results Received Date/Time: [facility] Reported Date/Time: Performed By: #### 9 68T, 65972J, %8293, 43612P, 6399, 496X #### [facility] Default [address] [place] [address] EOSABS 171 cells/uL Normal 15-500 [facility] Social Scientist Comment on above: Order Comment: [facility] performed at: [employer] [facility], [facility], [address] [place] [address], [address] [place] [address], Dredge Pipe Installer: Gopal Hamilton MD [facility] Date/Time: [facility] Results Received Date/Time: [facility] Reported Date/Time: Performed By: #### 9 68T, 91032N, %8293, 71669O, 6399, 496X #### [facility] Default [address] [place] [address] Eosinophils/100 WBC (Bld) 2.9 % Normal [facility] Social Scientist Comment on above: Order Comment: [facility] performed at: [employer], [employer] [facility], [address] , [address] [place] [address], [address] [place] [address], Dredge Pipe Installer: Gopal Hamilton MD [facility] Date/Time: [id number] [facility] Received Date/Time: [facility] Reported Date/Time: Performed By: #### 9 68T, 78738S, %8293, 03942G, 6399, 496X #### [facility] Default [address] [place] [address] Erythrocyte distribution width (RBC) [Ratio] 12.9 % Normal 11.0-15.0 [facility] Social Scientist Comment on above: Order Comment: [facility] performed at: [employer] [employer] [facility], [address] [place] [address], [address] [place] [address], [address] [place] [address], Dredge Pipe Installer: Gopal Hamilton MD [facility] Date/Time: [facility] Results Received Date/Time: [facility] Reported Date/Time: Performed By: #### 9 68T, 40059E, %8293, 23746N, 6399, 496X #### [facility] [address] [place] [address] Hematocrit (Bld) [Volume fraction] 38.1 % Normal 35.0-45.0 [facility] Social Scientist Comment on above: Order Comment: [facility] performed at: [employer] [facility], [address] [place] [address], [address] [place] [address], [address] [place] [address], Dredge Pipe Installer: Gopal Hamilton MD [facility] Date/Time: [facility] Results Received Date/Time: [facility] Reported Date/Time: Performed By: #### 9 68T, 94950X, %8293, 16990A, 6399, 496X #### [facility] [address] [place] [address] Hemoglobin (Bld) [Mass/Vol] 12.9 g/dL Normal 11.7-15.5 [facility] Social Scientist Comment on above: Order Comment: [facility] performed at: [employer], [facility], [address] [place] [address], [address] [place] [address], [address] [place] [address], Dredge Pipe Installer: Gopal Hamilton MD [facility] Date/Time: [id number] [facility] Results Received Date/Time: [facility] Reported Date/Time: Performed By: #### 9 68T, 94002D, %8293, 12268P, 6399, 496X #### [facility] Default [address] [place] [address] Lymphocytes (Bld) [#/Vol] 1.375 10*3/uL Normal 850-3900 [facility] Social Scientist Comment on above: Order Comment: [facility] performed at: [employer], [facility], [facility], [address] [place] [address], [address] [place] [address], Dredge Pipe Installer: Gopal Hamilton MD [facility] Date/Time: [facility] Results Received Date/Time: [facility] Reported Date/Time: Performed By: #### 9 68T, 78896K, %8293, 05040S, 6399, 496X #### [facility] Default [address] [place] [address] Lymphocytes/100 WBC (Bld) 23.3 % Normal [facility] Social Scientist Comment on above: Order Comment: [facility] performed at: [employer], [facility] [facility], [facility], [address] [place] [address], [address] [place] [address], Dredge Pipe Installer: Gopal Hamilton MD [facility] Date/Time: [facility] Results Received Date/Time: [facility] Reported Date/Time: Performed By: #### 9 68T, 06876S, %8293, 63648D, 6399, 496X #### [facility] Default [address] [place] [address] MCH (RBC) [Entitic mass] 30.0 pg Normal 27.0-33.0 [facility] Social Scientist Comment on above: Order Comment: [facility] performed at: [employer], [facility] [facility], [address] [place] [address], [address] [place] [address], [address] [place] [address], Dredge Pipe Installer: Gopal Hamilton MD [facility] Date/Time: [facility] Results Received Date/Time: [facility] Reported Date/Time: Performed By: #### 9 68T, 04799B, %8293, 14089C, 6399, 496X #### [facility] Default [address] [place] [address] MCHC (RBC) [Mass/Vol] 33.9 g/dL Normal 32.0-36.0 [facility] Comment on above: Order Comment: [facility] performed at: [employer], [facility] [facility], [facility], [address] [place] [address], [address] [place] [address], Dredge Pipe Installer: Gopal Hamilton MD [facility] Date/Time: [facility] Results Received Date/Time: [facility] Reported Date/Time: Performed By: #### 9 68T, 09371R, %8293, 62250L, 6399, 496X #### [facility] Default [address] [place] [address] MCV (RBC) [Entitic vol] 88.6 fL Normal 80.0-100.0 [facility] Specialist Comment on above: Order Comment: [facility] performed at: [employer], [facility] [facility], [address] , [address] [place] [address], [address] [place] [address], Dredge Pipe Installer: Gopal Hamilton MD [facility] Date/Time: [facility] Results Received Date/Time: [facility] Reported Date/Time: Performed By: #### 9 68T, 66799B, %8293, 30359S, 6399, 496X #### [facility] [address] [place] [address] MONOABS 460 cells/uL Normal 200-950 [facility] Comment on above: Order Comment: [facility] performed at: [employer] [employer] [facility], [address] , [address] [place] [address], [address] [place] [address], Dredge Pipe Installer: Gopal Hamilton MD [facility] Date/Time: [facility] Results Received Date/Time: [facility] Reported Date/Time: Performed By: #### 9 68T, 14021J, %8293, 40356W, 6399, 496X #### [facility] [address] [place] [address] Monocytes/100 WBC (Bld) 7.8 % Normal [facility] Social Scientist Comment on above: Order Comment: [facility] performed at: [employer], [address] , [address] [place] [address], , Dredge Pipe Installer: Gopal Hamilton MD [facility] Date/Time: [facility] Results Received Date/Time: [facility] Reported Date/Time: Performed By: #### 9 68T, 13182J, %8293, 71041O, 6399, 496X #### [facility] [address] [place] [address] Neutrophils (Bld) [#/Vol] 3.835 10*3/uL Normal 0161-3418 [facility] Social Scientist Comment on above: Order Comment: [facility] performed at: [employer], [address] , [address] [place] [address], , Dredge Pipe Installer: Gopal Hamilton MD [facility] Date/Time: [facility] Results Received Date/Time: [facility] Reported Date/Time: Performed By: #### 9 68T, 18983K, %8293, 24549N, 6399, 496X #### [facility] [address] [place] [address] Neutrophils/100 WBC (Bld) 65 % Normal [facility] Social Scientist Comment on above: Order Comment: [facility] performed at: [employer], [facility], [address], [address] [place] [address], , Dredge Pipe Installer: Gopal Hamilton MD [facility] Date/Time: [facility] Results Received Date/Time: [facility] Reported Date/Time: Performed By: #### 9 68T, 95074K, %8293, 61317I, 6399, 496X #### [facility] Default [address] [place] [address] Platelet mean volume (Bld) [Entitic vol] 9.3 fL Normal 7.5-12.5 [facility] Comment on above: Order Comment: [facility] performed at: [employer], [facility], [facility], [address] [place] [address], [phone], Dredge Pipe Installer: Gopal Hamilton MD [facility] Date/Time: [facility] Results Received Date/Time: [facility] Reported Date/Time: Performed By: #### 9 68T, 83146V, %8293, 64858R, 6399, 496X #### [facility] Default [address] [place] [address] Platelets (Bld) [#/Vol] 409 10*3/uL High 140-400 [facility] Comment on above: Order Comment: [facility] performed at: [employer] [facility], [address] , [address] [place] [address], [address], Dredge Pipe Installer: Gopal Hamilton MD [facility] Date/Time: [facility] Results Received Date/Time: [facility] Reported Date/Time: Performed By: #### 9 68T, 08335J, %8293, 75596I, 6399, 496X #### [facility] Default [address] [place] [address] RBC (Bld) [#/Vol] 4.30 10*6/uL Normal 3.80-5.10 [facility] Comment on above: Order Comment: [facility] performed at: [employer] [facility], [address], [address] [place] [address], [address] [place] [address], Dredge Pipe Installer: Gopal Hamilton MD [facility] Date/Time: [facility] Results Received Date/Time: [facility] Reported Date/Time: Performed By: #### 9 68T, 64557A, %8293, 98563H, 6399, 496X #### [facility] Default [address] [place] [address] WBC (Bld) [#/Vol] 5.9 10*3/uL Normal 3.8-10.8 Jay gambino [place] Social Scientist Comment on above: Order Comment: [facility] performed at: [employer] [facility], [facility], [address] [place] [address], [address] [place] [address], Dredge Pipe Installer: Gopal Hamilton MD [facility] Date/Time: [facility] Results Received Date/Time: [facility] Reported Date/Time: Performed By: #### 9 68T, 61257X, %8293, 35798N, 6399, 496X #### [facility] Default [address] [place] [address] Q - COMPREHENSIVE METABOLIC PANEL W/EGFRon 03-10-2022 Albumin [Mass/Vol] 4.3 g/dL Normal 3.6-5.1 Jay gambino [place] Social Scientist Comment on above: Order Comment: [facility] performed at: [employer] [facility], [facility], [address] [place] [address], [address] [place] [address], Dredge Pipe Installer: Gopal Hamilton MD [facility] Date/Time: [facility] Results Received Date/Time: [facility] Reported Date/Time: Performed By: #### 9 68T, 40574F, %8293, 99512C, 6399, 496X #### [facility] Default [address] [place] [address] Albumin/Globulin [Mass ratio] 1.7 {ratio} Normal 1.0-2.5 [facility] Social Scientist Comment on above: Order Comment: [facility] performed at: [employer] [employer] [facility], [address], [address] [place] [address], [address] [place] [address], Dredge Pipe Installer: Gopal Hamilton MD [facility] Date/Time: [facility] Results Received Date/Time: [facility] Reported Date/Time: Performed By: #### 9 68T, 03382M, %8293, 05118L, 6399, 496X #### [facility] Default [address] [place] [address] ALP [Catalytic activity/Vol] 134 U/L High 31-125 [facility] Social Scientist Comment on above: Order Comment: [facility] performed at: [employer], [facility] [facility], [address], [address] [place] [address], [address] [place] [address], Dredge Pipe Installer: Gopal Hamilton MD [facility] Date/Time: [facility] Results Received Date/Time: [facility] Reported Date/Time: Performed By: #### 9 68T, 20083J, %8293, 53852J, 6399, 496X #### [facility] [address] [place] [address] ALT [Catalytic activity/Vol] 41 U/L High 6-29 [facility] Social Scientist Comment on above: Order Comment: [facility] performed at: [employer], [facility] [facility], [facility], [address] [place] [address], [address] [place] [address], Dredge Pipe Installer: Gopal Hamilton MD [facility] Date/Time: [facility] Results Received Date/Time: [facility] Reported Date/Time: Performed By: #### 9 68T, 32421Y, %8293, 04430Z, 6399, 496X #### [facility] Default [address] [place] [address] AST [Catalytic activity/Vol] 33 U/L Normal 10-35 [facility] Social Scientist Comment on above: Order Comment: [facility] performed at: [employer] [facility], [address] , [address] [place] [address], [address] [place] [address], Dredge Pipe Installer: Gopal Hamilton MD [facility] Date/Time: [facility] Results Received Date/Time: [facility] Reported Date/Time: Performed By: #### 9 68T, 65383Y, %8293, 97667E, 6399, 496X #### [facility] Default [address] [place] [address] BUN/CREA 17 NOT APPLICABLE Normal 6-22 [facility] Social Scientist Comment on above: Order Comment: [facility] performed at: [employer] [employer] [facility], [facility], [address] [place] [address], [address] [place] [address], Dredge Pipe Installer: Gopal Hamilton MD [facility] Date/Time: [facility] Results Received Date/Time: [facility] Reported Date/Time: Performed By: #### 9 68T, 90643N, %8293, 86720T, 6399, 496X #### [facility] Default [address] [place] [address] Calcium [Mass/Vol] 9.6 mg/dL Normal 8.6-10.2 [facility] Social Scientist Comment on above: Order Comment: [facility] performed at: [employer] [facility], [facility], [address] [place] [address], [address] [place] [address], Dredge Pipe Installer: Gopal Hamilton MD [facility] Date/Time: [facility] Results Received Date/Time: [facility] Reported Date/Time: Performed By: #### 9 68T, 24738V, %8293, 58450L, 6399, 496X #### [facility] Default [address] [place] [address] Chloride [Moles/Vol] 103 mmol/L Normal 98-110 Venita jennifer [place] Social Scientist Comment on above: Order Comment: [facility] performed at: [employer] [employer] [facility], [address] , [address] [place] [address], [address] [place] [address], Dredge Pipe Installer: Gopal Hamilton MD [facility] Date/Time: [facility] Results Received Date/Time: [facility] Reported Date/Time: Performed By: #### 9 68T, 20310N, %8293, 02053S, 6399, 496X #### [facility] Default [address] [place] [address] CO2 [Moles/Vol] 27 mmol/L Normal 20-32 [facility] Specialist Comment on above: Order Comment: [facility] performed at: [employer] [facility], [facility], [address] [place] [address], [address] [place] [address], Dredge Pipe Installer: Gopal Hamilton MD [facility] Date/Time: [facility] Results Received Date/Time: [facility] Reported Date/Time: Performed By: #### 9 68T, 45456G, %8293, 64823J, 6399, 496X #### [facility] Default [address] [place] [address] Creatinine [Mass/Vol] 0.65 mg/dL Normal 0.50-1.[address] [facility] Specialist Comment on above: Order Comment: [facility] performed at: [employer] [facility], [facility], [address] [place] [address], [address] [place] [address], Dredge Pipe Installer: Gopal Hamilton MD [facility] Date/Time: [id number] [facility] Results Received Date/Time: [facility] Reported Date/Time: Performed By: #### 9 68T, 43909S, %8293, 37647N, 6399, 496X #### [facility] Default [address] [place] [address] eGFRAA ([facility]) 121 mL/min/1.73m2 Normal > OR = 60 [facility] Social Scientist Comment on above: Order Comment: [facility] Testing performed at: [employer], [facility], [facility], [address] [place] [address], [address] [place] [address], Dredge Pipe Installer: Gopal Hamilton MD [facility] Collection Date/Time: [facility] Results Received Date/Time: [facility] Reported Date/Time: Performed By: #### 9 68T, 26170J, %8293, 45554G, 6399, 496X #### [facility] Default [address] [place] [address] eGFRNAA ([facility]) 104 mL/min/1.73m2 Normal > OR = 60 No rthern [place] Social Scientist Comment on above: Order Comment: [facility] Testing performed at: [employer], [facility], [address] , [address] [place] [address], [address] [place] [address], [employer]ge Pipe Installer: Gopal Hamilton MD [facility] Collection Date/Time: [facility] Results Received Date/Time: [facility] Reported Date/Time: Performed By: #### 9 68T, 47097D, %8293, 64952D, 6399, 496X #### [facility] Default [address] [place] [address] Globulin (S) [Mass/Vol] 2.5 g/dL Normal 1.9-3.7 [facility] Specialist Comment on above: Order Comment: [facility] Testing performed at: [employer], [facility], [address] , [address] [place] [address], [address] [place] [address], [employer]red[employer] P[employer] Installer: Gopal Hamilton MD [facility] Collection Date/Time: [id number] [facility] Results Received Date/Time: [facility] Reported Date/Time: Performed By: #### 9 68T, 86221W, %8293, 69608B, 6399, 496X #### [facility] Default [address] [place] [address] Glucose [Mass/Vol] 94 mg/dL Normal 65-99 [place] Social Scientist Comment on above: Order Comment: [facility] Testing performed at: [employer], [facility], [address] [place] [address], [address] [place] [address], [address] [place] [address], [employer] P[employer] Installer: Gopal Hamilton MD [facility] Collection Date/Time: [facility] Results Received Date/Time: [facility] Reported Date/Time: Result Comment: Fasting reference interval Performed By: #### 9 68T, 83335V, %8293, 50868D, 6399, 496X #### [facility] Default [address] [place] [address] Potassium [Moles/Vol] 4.4 mmol/L Normal 3.5-5.3 Venita larson [place] Social Scientist Comment on above: Order Comment: [facility] Testing performed at: [employer], [facility], [facility], [address] [place] [address], [address] [place] [address], Dredge P[employer] Installer: Gopal Hamilton MD [facility] Collection Date/Time: [facility] Results Received Date/Time: [facility] Reported Date/Time: Performed By: #### 9 68T, 70160T, %8293, 93100G, 6399, 496X #### [facility] Default [address] [place] [address] Protein [Mass/Vol] 6.8 g/dL Normal 6.1-8.1 Jay gambino [place] Social Scientist Comment on above: Order Comment: [facility] Testing performed at: [employer], [facility], [address] , [address] [place] [address], [address] [place] [address], [employer]ge P[employer] Installer: Gopal Hamilton MD [facility] Collection Date/Time: [facility] Results Received Date/Time: [facility] Reported Date/Time: Performed By: #### 9 68T, 57641H, %8293, 12111D, 6399, 496X #### [facility] Default [address] [place] [address] Sodium [Moles/Vol] 138 mmol/L Normal 135-146 [facility] Specialist Comment on above: Order Comment: [facility] Testing performed at: [employer], [facility], [address] [place] [address], [address] [place] [address], [address] [place] [address], [employer] P[employer] Installer: Gopal Hamilton MD [facility] Collection Date/Time: [facility] Results Received Date/Time: [facility] Reported Date/Time: Performed By: #### 9 68T, 98125E, %8293, 71108S, 6399, 496X #### [facility] Default [address] [place] [address] TBIL <0.3 Normal 0.2-1.2 [facility] Social Scientist Comment on above: Order Comment: [facility] Testing performed at: [employer], [facility], [address] [place] [address], [address] [place] [address], [address] [place] [address], Dredge Pipe Installer: Gopal Hamilton MD [facility] Collection Date/Time: [facility] Results Received Date/Time: [facility] Reported Date/Time: Performed By: #### 9 68T, 70549Q, %8293, 17654P, 6399, 496X #### [facility] Default [address] [place] [address] Urea nitrogen [Mass/Vol] 11 mg/dL Normal 7-25 [facility] Social Scientist Comment on above: Order Comment: [facility] Testing performed at: [employer], [facility], [address] [place] [address], [address] [place] [address], [address] [place] [address], Dredge Pipe Installer: Gopal Hamilton MD [facility] Collection Date/Time: [facility] Results Received Date/Time: [facility] Reported Date/Time: Performed By: #### 9 68T, 35979D, %8293, 21838P, 6399, 496X #### [facility] Default [address] [place] [address] Q - DLDL REFLEXon 03-10-2022 Cholesterol in LDL [Mass/Vol] 87 mg/dL Normal <100 [facility] Social Scientist Comment on above: Order Comment: [facility] Testing performed at: [facility] [employer] [facility], [address] , [address] [place] [address], [phone], Dredge Pipe Installer: Gopal Hamilton MD [facility] Collection Date/Time: [facility] Results Received Date/Time: [facility] Reported Date/Time: Result Comment: Desirable range <100 mg/dL for primary prevention; <70 mg/dL for patients with CHD or diabetic patients with > or = 2 CHD risk factors. Performed By: #### 9 68T, 96859Q, %8293, 60878T, 6399, 496X #### [facility] Default [address] [place] [address] Q - HEMOGLOBIN A1Con 022 HEMOGLOBIN A1c 5.0 % of total Hgb Normal <5.7 [facility] Comment on above: Order Comment: [facility] Testing performed at: [facility], [address] , [address] [place] [address], [phone], Dredge Pipe Installer: Gopal Hamilton MD [facility] Collection Date/Time: [facility] [...] diagnosis of diabetes in children. According to [place] Diabetes Association (ADA) guidelines, hemoglobin A1c <7.0% represents optimal control in non- diabetic patients. Different metrics may apply to specific patient populations. Standards of Medical Care in Diabetes(ADA). Performed By: #### 9 68T, 20115O, %8293, 46726S, 6399, 496X #### [facility] Default [address] [place] [address] Q - Lipid Panelon 03-10-2022 Cholesterol [Mass/Vol] 230 mg/dL High <200 [facility] Comment on above: Order Comment: [facility] Testing performed at: [employer], [facility], [facility], [address] [place] [address], [address] [place] [address], [employer] P[employer] Installer: Gopal Hamilton MD [facility] Collection Date/Time: [facility] Results Received Date/Time: [facility] Reported Date/Time: Performed By: #### 9 68T, 59433K, %8293, 66544Y, 6399, 496X #### [facility] Default [address] [place] [address] Cholesterol in HDL [Mass/Vol] 52 mg/dL Normal > OR = 50 [facility] Social Scientist Comment on above: Order Comment: [facility] Testing performed at: [employer], [facility], [address] [place] [address], [address] [place] [address], [address] [place] [address], Dredge Pipe Installer: Gopal Hamilton MD [facility] Collection Date/Time: [facility] Results Received Date/Time: [facility] Reported Date/Time: Performed By: #### 9 68T, 96535R, %8293, 00156C, 6399, 496X #### [facility] Default [address] [place] [address] Cholesterol.total/Chol esterol in HDL [Mass ratio] 4.4 {ratio} Normal <5.0 [facility] Social Scientist Comment on above: Order Comment: [facility] Testing performed at: [employer], [facility], [address] [place] [address], [address] [place] [address], [address] [place] [address], Dredge Pipe Installer: Gopal Hamilton MD [facility] Collection Date/Time: [facility] Results Received Date/Time: [facility] Reported Date/Time: Performed By: #### 9 68T, 70516V, %8293, 08474F, 6399, 496X #### [facility] Default [address] [place] [address] LDLD SEE NOTE Normal [facility] Social Scientist Comment on above: Order Comment: [facility] Testing performed at: [facility], [facility], [address] [place] [address], [phone], Dredge Pipe Installer: Gopal Hamilton MD [facility] Collection Date/Time: [facility] [...] LDL-C. Estevan SCHILLING et al. ZANA. 2013;310(19): 1648-3298 (http://education.[employer]/faq/MGL582) Performed By: #### 9 68T, 59137I, %8293, 27915O, 6399, 496X #### [facility] Default [address] [place] [address] NON HDL CHOLESTEROL 178 mg/dL (calc) High <130 [facility] Social Scientist Comment on above: Order Comment: [facility] Testing performed at: [facility], [address] , [address] [place] [address], [address], Dredge Pipe Installer: Gopal Hamilton MD [facility] Collection Date/Time: [facility] Results Received Date/Time: [facility] Reported Date/Time: Result Comment: For patients with diabetes plus 1 major ASCVD risk factor, treating to a non-HDL-C goal of <100 mg/dL (LDL-C of <70 mg/dL) is considered a therapeutic option. Performed By: #### 9 68T, 30037Y, %8293, 72829P, 6399, 496X #### [facility] Default [address] [place] [address] Triglyceride [Mass/Vol] 410 mg/dL High <150 [facility] Specialist Comment on above: Order Comment: [facility] Testing performed at: [employer], [facility], [facility], [address] [place] [address], [address] [place] [address], Dredge Pipe Installer: Gopal Hamilton MD [facility] Collection Date/Time: [facility] Results Received Date/Time: [facility] Reported Date/Time: Result Comment: If a non-fasting specimen was collected, consider repeat triglyceride testing on a fasting specimen if clinically indicated. João et al. J. of Clin. Lipidol. 2015;9:129-169. Performed By: #### 9 68T, 74559E, %8293, 22460T, 6399, 496X #### [facility] Default [address] [place] [address] Q - TROPONIN Ion 03-10-2022 TROPONIN I 3 ng/L Normal < OR = 47 [facility] Social Scientist Comment on above: Order Comment: [facility] Testing performed at: [facility], [facility], [address] [place] [address], [address] [place] [address], Dredge P[employer] Installer: Gopal Hamilton MD [facility] Collection Date/Time: [facility] Results Received Date/Time: [facility] Reported Date/Time: Result Comment: In accord with published recommendations, serial testing of troponin I at intervals of 2 to 4 hours for up to 12 to 24 hours is suggested in order to corroborate a single troponin I result. An elevated troponin alone is not sufficient to make the diagnosis of UT. Performed By: #### 9 68T, 24192D, %8293, 34200L, 6399, 496X #### [facility] Default [address] [place] [address] UA DIP, URINE (POC)on 2021 BILIRUBIN UA (POCT) Negative Negative [facility] CLARITY UA (POCT) Clear [facility] COLOR UA (POCT) Yellow [facility] GLUCOSE UA (POCT) Negative Negative mg/dL [facility] HEMOGLOBIN/BLOOD UA (POCT) Negative Negative [facility] KETONE UA (POCT) Negative Negative mg/dL [facility] LEUKOCYTES UA (POCT) Negative Negative [facility] NITRITE UA (POCT) Negative Negative [facility] PH UA (POCT) 5.0 4.5 - 8.0 [facility] Protein Ql (U) Trace Abnormal Negative mg/dL [facility] SPECIFIC GRAVITY UA (POCT) >=1.030 1.005 - 1.030 [facility] UROBILINOGEN UA (POCT) 0.2 E.U./dL Brenda l E.U./dL [facility] CNTHERAPYon 01-31-2022 CNTHERAPY OT/PT/Speech Visit (PTLHO) ----- MARY LEAL ([id number]) 1970 F Date Time Provider Department 01/31/22 10:30 AM NEWTON WOODWARD Date Time Provider Department [place] 01/31/2022 10:30 AM [id number], [place]ILL [place] [facility] [employer] [facility] Reason for Visit: Physical Therapy [503] [...] (FLONASE) 50 mcg/actuation nasal spray Use 1 [place] in each nostril once daily. - carBAMazepine [...] by mouth every morning BEFORE BREAKFAST - sxveudlnswy-mwokplcom-pua anter (TRELEGY ELLIPTA) 100-62.5-25 mcg Inhale 1 Puff as instructed once daily. - atenolol (TENORMIN) 50 mg tablet Take 50 mg by mouth once daily. ----- [facility] CNTHERAPYon 01-24-2022 CNTHERAPY OT/PT/Speech Visit (PTLHO) ----- MARY LEAL ([id number]) 1970 F Date Time Provider Department 01/24/22 10:30 AM NEWTON WOODWARD Date Time Provider Department Center 01/24/2022 10:30 AM [id number], JILL PTKALEIGH [facility] Reason for Visit: Physical Therapy [503] [...] (FLONASE) 50 mcg/actuation nasal spray Use 1 [place] in each nostril once daily. - carBAMazepine [...] by mouth every morning BEFORE BREAKFAST - paykeahqeto-fyjrevxnp-iva anter (TRELEGY ELLIPTA) 100-62.5-25 mcg Inhale 1 Puff as instructed once daily. - atenolol (TENORMIN) 50 mg tablet Take 50 mg by mouth once daily. ----- [facility] CNTHERAPYon 01-18-2022 CNTHERAPY OT/PT/Speech Visit (PTLHO) ----- MARY LEAL ([id number]) 1970 F Date Time Provider Department 01/18/22 12:15 PM JESSI ISAACS Date Time Provider Department Center 01/18/2022 12:15 PM [id number], KATHRYN [facility] Reason for Visit: PT Eval [747] Primary [...] (FLONASE) 50 mcg/actuation nasal spray Use 1 [place] in each nostril once daily. - carBAMazepine [...] by mouth every morning BEFORE BREAKFAST - maferjcokgw-zhvkpgmxk-led anter (TRELEGY ELLIPTA) 100-62.5-25 mcg Inhale 1 Puff as instructed once daily. - atenolol (TENORMIN) 50 mg tablet Take 50 mg by mouth once daily. ----- Letter Text [facility] 12-27-2021 [facility] HNO ID: [id number] Author: Sonido Owen MD Service: Colorectal Author [...] the PACU and was transferred to the [facility]. Postoperatively, the patient recovered well. Her [...] mg Finesse (more content not included)... Normal [facility] CONSULTon 12-27-2021 CONSULT HNO ID: [id number] Author: Trini Hines RN Service: Wound/Ostomy Author Type: Registered Nurse Type: Consults Filed: 12/27/2021 3:32 PM Note Text: STOMA CARE POST-OPERATIVE ASSESSMENT AND PATIENT EDUCATION Patient Name: Mary Leal Date: December 27, 2021 Time: 3:20 PM ET Care Outcome: Ms. Leal was seen today on the [facility] for ostomy education and a pouch change lesson. ET's Next Scheduled Visit: Complete. STOMA ASSESSMENT Stoma type: Loop ileostomy Diameter: 35 mm with and extra 1 mm cut on the medial side of the pouch. Location: RLQ Protrusion: Budded, Os points downward Mucosal condition and color: Red and Lavina and moist. Boni: No Mucocutaneous Junction: Intact [...] one piece cut to fit drainable pouch (#71278) and Coloplast Brava moldable ring (2mm) #[id number]. Brava barrier strips, product # [id number] applied around the border of the pouch. [...] FROM THE CHART OR MODIFY PRINTED COPY. [facility] NURSING PROGon 12-27-2021 NURSING PROG HNO ID: [id number] Author: Marizol Hankins RN Service: ? Author Type: Registered Nurse Type: Nursing Progress Note Filed: 12/27/2021 4:39 PM Note Text: Nursing Progress Note Patient Name: Mary Leal Patient Location: [place] [address] [address] Daily Note: Pt AANDO x 3. Lap [...] This note was completed by: Marizol Hankins [facility] NUTRITIONon 12-27-2021 NUTRITION HNO ID: [id number] Author: Merced Morales DTR Service: Nutrition Therapy Author Type: Hand Sander Type: Nutrition Filed: 12/27/2021 12:16 PM Note Text: NUTRITION THERAPY COMMUNICATIONS INTERN NOTE SERVICE DATE: 12/27/2021 SERVICE TIME: 10:00 [...] DATE: December 27, 2021 TIME: 12:15 PM [facility] PT EDon 12-27-2021 PT ED HNO ID: [id number] Author: Merced Morales DTR Service: Nutrition Therapy Author Type: Hand Sander Type: Patient Education Filed: 12/27/2021 12:16 PM [...] 27, 2021 TIME: 12:16 PM PAGER: Normal [facility] Basic Metabolic Panlon 12-26 Anion gap [Moles/Vol] 9 mmol/L Normal 9-18 [facility] Comment on above: Performed By: #### B MP #### [place] [id number] Calcium [Mass/Vol] 8.5 mg/dL Normal 8.5-10.5 [facility] Comment on above: Performed By: #### B MP #### [address] Chloride [Moles/Vol] 102 mmol/L Normal 98-110 [facility] Comment on above: Performed By: #### B MP #### [address] CO2 [Moles/Vol] 28 mmol/L Normal 23-32 [facility] Comment on above: Performed By: #### B MP #### [place] [phone] Creatinine [Mass/Vol] 0.62 mg/dL Low 0.70-1.40 [facility] Comment on above: Performed By: #### B MP #### [place] [id number] eGFR- Amer. >60 Normal >59 [facility] Comment on above: Performed By: #### B MP #### [place] [phone] eGFR-All Other Races >60 Normal >59 [facility] Comment on above: Result Comment: [...] [email or web address]. Performed By: #### B MP #### [place] [phone] Glucose [Mass/Vol] 71 mg/dL Normal 65-100 [facility] Comment on above: Performed By: #### B MP #### [place] [phone] Potassium [Moles/Vol] 4.0 mmol/L Normal 3.5-5.0 [facility] Comment on above: Performed By: #### B MP #### [place] [phone] Sodium [Moles/Vol] 139 mmol/L Normal 132-148 [facility] Comment on above: Performed By: #### B MP #### [place] [phone] Urea nitrogen [Mass/Vol] 10 mg/dL Normal 8-25 [facility] Comment on above: Performed By: #### B MP #### [place] [phone] NURSING PROGon 12-26-2021 NURSING PROG HNO ID: [id number] Author: Dipti Crowley RN Service: Nursing Author Type: Registered Nurse Type: Nursing Progress Note Filed: 12/26/2021 5:25 PM Note Text: Nursing Progress Note Patient Name: Mary Leal Patient Location: PK3C33/LA4F-71 Daily Note: Call discontinued as directed in orders. 700cc output from call. 250cc NS instilled and then call catheter removed. Patient assisted to BSC and voided 200cc pink tinged urine. Patient assisted back to bed, not wanting to go to chair. Call light in reach. This note was completed by: [facility] NURSING PROG HNO ID: [id number] Author: Dipti Crowley RN Service: Nursing Author Type: Registered Nurse Type: Nursing Progress Note Filed: 12/26/2021 3:51 PM Note Text: Nursing Progress Note Patient Name: Mary Leal Patient Location: PK3C33/TJ2H-08 Daily Note: Patient AANDOx3. VSS. 2L NC POx. IVF infusing as ordered. Dilaudid SINGLE END SEWER, OXY IR on for pain. Patient drowsy yet easily arousable. Lap sites and transverse incision ELENI with glue. Ileostomy draining liquid brown. Call draining clear yellow. PAS on. No edema. Fa,saman at bed side. Call light in reach. This note was completed by: [facility] Basic Metabolic Panlon 12-25 Anion gap [Moles/Vol] 9 mmol/L Normal 9-18 [facility] Comment on above: Performed By: #### B #### [facility] [address] [place] [address] Calcium [Mass/Vol] 8.5 mg/dL Normal 8.5-10.5 [facility] Comment on above: Performed By: #### B MP #### [address] Chloride [Moles/Vol] 104 mmol/L Normal 98-110 [facility] Comment on above: Performed By: #### B MP #### [place] [phone] CO2 [Moles/Vol] 28 mmol/L Normal 23-32 [facility] Comment on above: Performed By: #### B MP #### [phone] Creatinine [Mass/Vol] 0.72 mg/dL Normal 0.70-1.40 [facility] Comment on above: Performed By: #### B MP #### [phone] eGFR- Amer. >60 Normal >59 [facility] Comment on above: Performed By: #### B MP #### [phone] eGFR-All Other Races >60 Normal >59 [facility] Comment on above: Result Comment: [...] [email or web address]. Performed By: #### B MP #### [place] [address] Glucose [Mass/Vol] 91 mg/dL Normal 65-100 [facility] Comment on above: Performed By: #### B MP #### [place] [phone] Potassium [Moles/Vol] 4.0 mmol/L Normal 3.5-5.0 [facility] Comment on above: Performed By: #### B MP #### [place] [address] Sodium [Moles/Vol] 141 mmol/L Normal 132-148 [facility] Comment on above: Performed By: #### B MP #### [place] [phone] Urea nitrogen [Mass/Vol] 12 mg/dL Normal 8-25 [facility] Comment on above: Performed By: #### B MP #### [place] [address] CASE MGT INIT ASSESon 2021 CASE MGT INIT ASSES HNO ID: [id number] Author: TITO Whitt Service: ? 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 Last discharge within 30 days: No Advance Directive: Current Advance Directive: Health Care Power of Vice President Digital Strategist In Chart: No Health LiteracyHow often do [...] None Has the Patient Been in a Shelter Facility in the Past 30 days?: No [...] Completely I feel financially burdened by my ifd-mf-vzggsh expenses for my prescription medication:: 0 - Disagree Completely Risk Score: 0 Patient is categorized as: Low risk < 2 Are you interested in bedside delivery of your medications? Yes Is Patient Psychosocially Complex?: No ASSESSMENT AND PLAN: Medical Needs: Medical Needs: None Psychosocial Needs: Psychosocial Needs: None FREEDOM OF CHOICE EXPLAINED: [place] of Choice Given: Yes Level of Care Discussed: Home Care Financial Disclosure Provided: Yes Financial Disclosure Comments: careport Provider List: Home Care Provider list within the patient's requested geographic area shared with the patient/family: Yes within: [facility] code: [address] Quality and resource use metrics shared with [...] bedside with pt during assessment. Charo Obando [phone]. Home care referrals sent. Daughter to transport at time of discharge. SIGNATURE: TITO Whitt PATIENT NAME: Mary Leal DATE: December 25, 2021 TIME: 11:39 AM PAGER/CONTACT #: [phone] Normal [facility] CBC and Differentialon 12-25 Abs Baso 0.03 k/uL Normal <0.11 [facility] Comment on above: Performed By: #### 5 7021-8 #### [facility] CLIA [id number] [address] [place] [address] [place] [facility] Abs [place] 0.45 k/uL Normal <0.87 [facility] Comment on above: Performed By: #### 5 7021-8 #### [facility] CLIA [id number] [address] [place] [address] [place] [facility] Abs Neut 3.85 k/uL Normal 1.45-7.50 [facility] Comment on above: Performed By: #### 5 7021-8 #### [facility] CLIA [id number] [address] [place] [address] [place] [facility] Absolute nRBC <0.01 Normal <0.01 [facility] Comment on above: Performed By: #### 5 7021-8 #### [facility] CLIA [id number] [address] [place] [address] [place] [employer] Basophils/100 WBC (Bld) 0.5 % Normal [facility] Comment on above: Performed By: #### 5 7021-8 #### [facility] CLIA [id number] [address] [place] [address] STATES [facility] DTYPE Auto Diff Normal [facility] Comment on above: Performed By: #### 5 7021-8 #### [facility] CLIA [id number] [address] [place] [address] STATES OF [facility] Eosinophils (Bld) [#/Vol] 0.14 10*3/uL Normal <0.46 [facility] Comment on above: Performed By: #### 5 7021-8 #### [facility] CLIA [id number] [address] [place] [address] STATES [place] Eosinophils/100 WBC (Bld) 2.3 % Normal [facility] Comment on above: Performed By: #### 5 7021-8 #### [facility] CLIA [id number] [address] [place] [address] [place] Erythrocyte distribution width (RBC) [Ratio] 11.6 % Normal 11.5-15.0 [facility] Comment on above: Performed By: #### 5 7021-8 #### [facility] CLIA [id number] [address] [place] [address] OF [facility] Hematocrit (Bld) [Volume fraction] 35.2 % Low 36.0-46.0 [facility] Comment on above: Performed By: #### 5 7021-8 #### [facility] CLIA [id number] [address] [place] [address] [place] Hemoglobin (Bld) [Mass/Vol] 11.6 g/dL Normal 11.5-15.5 [facility] Comment on above: Performed By: #### 5 7021-8 #### [facility] CLIA [id number] [address] [place] [address] [place] Lymphocytes (Bld) [#/Vol] 1.47 10*3/uL Normal 1.00-4.00 [facility] Comment on above: Performed By: #### 5 7021-8 #### [facility] CLIA [id number] [address] [place] [address] STATES [place] Lymphocytes/100 WBC (Bld) 24.7 % Normal [facility] Comment on above: Performed By: #### 5 7021-8 #### [facility] CLIA [id number] [address] [place] [address] STATES [place] MCH 29.5 pG Normal 26.0-34.0 [facility] Comment on above: Performed By: #### 5 7021-8 #### [facility] CLIA [id number] [address] [place] [address] [place] MCHC (RBC) [Mass/Vol] 33.0 g/dL Normal 30.5-36.0 [facility] Comment on above: Performed By: #### 5 7021-8 #### [facility] CLIA [id number] [place] [address] [place] MCV (RBC) [Entitic vol] 89.6 fL Normal 80.0-100.0 [facility] Comment on above: Performed By: #### 5 7021-8 #### [facility] CLIA [id number] [address] [place] [address] STATES [facility] Monocytes/100 WBC (Bld) 7.6 % Normal [facility] Comment on above: Performed By: #### 5 7021-8 #### [facility] CLIA [id number] [address] [place] [address] STATES [place] Neutrophils/100 WBC (Bld) 64.9 % Normal [facility] Comment on above: Performed By: #### 5 7021-8 #### [facility] CLIA [id number] [address] [place] [address] STATES [place] NRBCs 0.0 /100 WBC Normal 0 [facility] Comment on above: Performed By: #### 5 7021-8 #### [facility] CLIA [id number] [address] [place] [address] [place] Platelet mean volume (Bld) [Entitic vol] 9.0 fL Normal 9.0-12.7 [facility] Comment on above: Performed By: #### 5 7021-8 #### [facility] CLIA [id number] [address] [place] [address] [place] Platelets (Bld) [#/Vol] 271 10*3/uL Normal 150-400 [facility] Comment on above: Performed By: #### 5 7021-8 #### [facility] CLIA [id number] [address] RBC (Bld) [#/Vol] 3.93 10*6/uL Normal 3.90-5.20 [facility] Comment on above: Performed By: #### 5 7021-8 #### [facility] CLIA [id number] WBC (Bld) [#/Vol] 5.96 10*3/uL Normal 3.70-11.00 [facility] Comment on above: Performed By: #### 5 7021-8 #### [facility] CLIA [id number] [address] CONSULTon 12-25-2021 CONSULT HNO ID: [id number] Author: Tri Kowalski APRN.IMPLEMENTATION PROJECT MANAGER Service: Wound/Ostomy Author Type: Nurse Practitioner Type: Consults Filed: 12/25/2021 11:37 AM Note Text: OSTOMY SERVICE CONSULT INSTRUCTIONAL AIDE SERVICE DATE: 12/25/2021 SERVICE TIME: 1015 Consultation [...] HX 07/2021 revision - VAGINAL HYSTERECTOMY 2014 [facility] 10/2015 for endometriosis, has remaining both [...] mL 20 mEq INTRAVENOUS PRN - HYDROmorphone SINGLE END SEWER 0.5 mg/mL in NaCl 0.9% 100 mL [...] with h (more content not included)... Normal [facility] NURSING PROGon 12-25-2021 NURSING PROG HNO ID: [id number] Author: Marilyn Henning RN Service: ? Author Type: Registered Nurse Type: Nursing Progress Note Filed: 12/25/2021 7:01 PM Note Text: Nursing Progress Note Patient Name: Mary Leal Patient Location: [place] [address] Daily Note: 0930 Pt AANDOx3. Lap sites intact. ABD tender. SINGLE END SEWER pump running. Stoma beefy red, dark brown liquid output. Pt stated that the eye pressure felt overnite has resolved. Call remains in place until OBGYN sees pt 12/26. Pt requesting PO pain medication. 1100 Pt up to chair. [address] Ontiveros bedside. 5mg oxy ordered q4 PRN. This note was completed by: Marilyn Henning [facility] NURSING PROG HNO ID: [id number] Author: Annette Ford RN Service: ? Author Type: Registered Nurse Type: Nursing Progress Note Filed: 12/25/2021 6:12 AM Note Text: Nursing Progress Note Patient Name: Mary Leal Patient Location: [place] [address] Daily Note: Pt has been complaining of [...] This note was completed by: Annette Ford [facility] ANES POSTPROC EVALon 022 ANES POSTPROC EVAL HNO ID: [id number] Author: Charisse Aggarwal MD Service: Anesthesiology Author Type: Anesthesiologist Type: Anesthesia Postprocedure Evaluation Filed: 12/24/2021 4:17 PM Note Text: POST ANESTHESIA EVALUATION NOTE : 1970 Procedure Summary Date: 12/24/21 Room / Location: [place] [address] / OR Anesthesia Start: 810 Anesthesia Stop: [...] December 24, 2021 TIME: 4:17 PM CSN: [id number] [facility] ANES PRE-OPon 12-24-2021 ANES PRE-OP HNO ID: [id number] Author: Chayito Ojeda MD Service: Anesthesiology Author [...] 11pm the evening prior to surgery. - kwqvyfajmgr-motkgkcgf-tci anter (TRELEGY ELLIPTA) 100-62.5-25 mcg Inhale 1 [...] December 24, 2021 TIME: 7:27 AM CSN: [id number] [facility] BRIEF OP NOTon 12-24-2021 BRIEF OP NOT HNO ID: [id number] Author: Jenifer Ayala MD Service: Colorectal Author Type: Fellow Type: Brief Op Note Filed: 12/24/2021 12:16 PM Note Text: BRIEF OPERATIVE NOTE - COLORECTAL SURGERY Log ID: [id number] Surgery/Procedure Date: 12/24/2021 Incision/Procedure Start Time: 8:50 AM Incision Close/Procedure End Time: Surgeon(s) and Director Home(s): Surgeon(s) and Role: Panel 1: * Mary [...] DATE: December 24, 2021 TIME: 12:10 PM [facility] NURSING PROGon 12-24-2021 NURSING PROG HNO ID: [id number] Author: Marilyn Henning RN Service: ? Author Type: Registered Nurse Type: Nursing Progress Note Filed: 12/24/2021 6:36 PM Note Text: Nursing Progress Note Patient Name: Mary Leal [facility] [place] [address] Daily Note: 1816 Pt arrived on floor with 100.2F temperature. Scheduled tylenol administered. Temperature 98.6 at 1816. Surgical incisions ELENI with glue, intact. Ostomy beefy red, producing sweat. Call remains in place. Pt Educated on SINGLE END SEWER pump usage. Daughter bedside. Bed low and locked. This note was completed by: Marilyn Henning [facility] NURSING PROG HNO ID: [id number] Author: Marilyn Henning RN Service: ? Author Type: Registered Nurse Type: Nursing Progress Note Filed: 12/24/2021 4:19 PM Note Text: Nursing Progress Note Patient Name: Mary Leal Patient Location: [place] [address]Q5K-64 Transfer Note: Patient transferred into room/unit PK3-33 in stable condition. Actions taken: No futher actions taken at this time. Will continue to monitor and check with patient. This note was completed by: Marilyn Henning [facility] NURSING PROG HNO ID: [id number] Author: Dianelys Lopez RN Service: Nursing Author [...] (RECOMMENDATION): None Electronically Signed By: Dianelys Lopez [facility] OPERATIVE NOon 12-24-2021 OPERATIVE NO HNO ID: [id number] Author: Mary Obrien MD Service: Colorectal Author Type: Physician Type: Operative Report Filed: 12/24/2021 12:34 PM Note Text: COLON AND RECTAL SURGERY OPERATIVE REPORT PATIENT NAME: Mary Leal ADMISSION DATE: 12/24/2021 LOG ID: [id number] SURGERY/PROCEDURE DATE: 12/24/2021 INCISION/PROCEDURE START TIME: 8:50 AM INCISION CLOSE/PROCEDURE END TIME: AGE: [age] year old SEX: female SURGEON(S)/PROCEDURALIST( S) AND GLASS BLOWING LATHE OPERATOR(S): Surgeon(s) and Role: Panel 1: * Mary [...] port site. This was ligated with a dtzrdi-ox-nbpae Vicryl suture and was confirmed to be [...] Mary Obrien, (more content not included)... Normal [facility] OPERATIVE NO HNO ID: [id number] Author: Pam Wang MD Service: Urogynecology Author Type: Physician Type: Operative Report Filed: 12/28/2021 10:03 AM Note Text: OPERATIVE/PROCEDURE REPORT LOG ID: [id number] SURGERY/PROCEDURE DATE: 12/24/2021 INCISION/PROCEDURE START TIME: 8:50 AM INCISION CLOSE/PROCEDURE END TIME: 1:50 PM SURGEON(S)/PROCEDURALIST( S) AND GLASS BLOWING LATHE OPERATOR(S): Surgeon(s) and Role: Panel 1: * Mary [...] of the (more content not included)... Normal [facility] Type and SCR (30D)on 022 ABO/RH(D) Positive Normal [facility] Comment on above: Performed By: #### T SCR30 ####[facility] [place], [place] [phone] Confirm Blood Typeon 021 ABO/RH(D) Positive [facility] Comment on above: Performed By: #### C ONABO ####[facility] [place], [place] [phone] Type and SCR (30D)on 021 ABO/RH(D) Positive [facility] Comment on above: Performed By: #### T SCR30 ####[facility] [place], [place] [phone] Nonvisit Note - PTon Nonvisit Note - PT Chart reviewed with eval prepped for scheduled eval. KK [facility] Consenton 01-08-2021 Consent [id number]#1.00CD:1 27 [facility] Coding Summary.on 01-06-2021 Coding Summary. CODING DATE: FINAL [facility] STATUS: Home (Routine DC) PAYOR: [...] Eileen Scott Date Saved: 01/06/2021 09:01 am [facility] Consent for Procedure/Surger yon 01-04-2021 Consent for Procedure/Surgery [id number]#1.00CD:1 27 [facility] Consent for Procedure/Surgery [id number]#1.00CD:1 27 Normal [facility] Consent for Treatmenton 03-0 Consent for Treatment [id number]#1.00CD:12 7 Normal [facility] Discharge Instructionson Discharge Instructions [id number]#1.00CD:1 27 Normal [facility] Inpatient Patient Summaryon 01-04-2021 Inpatient Patient Summary [place] [id number] Clinical Summary Person Information Name: MARY LEAL Age: 50 Years : 1970 Sex: Female PCP: Isatu GÓMEZ DO Marital Status: Race: White Ethnicity: Non- or Language: Estonian Visit Id: Visit Reason: MIXED INCONTINENCE Speciality: Acuity: Enc Type: Outpatient Med Service: Surgery Arrival: 01/04/2021 12:31:00 Discharge: Dispo Type: Address: [address] [place] [phone] Provider Notes: Diagnosis: Problems Active Decreased bladder [...] Documented This Visit Final Med List: acetaminophen-hydrocodone ([place] 5/325 Tab) By Mouth every 6 hours. [...] MD Follow up: With: Address: When: Clifford Naik [facility], [address], [place] [phone] Business (1) Within 2 weeks Comments: Call for followup appointment. Have a great day! Patient Education Information: EU - Cystoscopy with Botox Injection Discharge Instructions (Custom) [facility] IntraOperative Documentson 0 01-04-2021 IntraOperative Documents [id number]#1.00CD:1 27 [facility] IntraOperative Documents [id number]#1.00CD:1 27 [facility] Main OR Intraoperative Recor don 01-04-2021 Main OR Intraoperative Record IntraOp Document Type FTURO Summary Primary Physician: Clifford OCONNOR MD Finalized Date/Time: 01/04/21 13:27:05 Pt. Name: MARY LEAL/Sex: 1970 Female Med Rec #: [id number] Physician: Clifford OCONNOR MD Financial #: [id number] Pt. Type: O Room/Bed: / Admit/Disch: 01/04/21 12:31:00 - Institution: Case Times FTURO Entry 1 Patient Times In Room 01/04/21 13:07:00 Out Room 01/04/21 13:27:00 Procedure Times Start 01/04/21 13:19:00 Stop 01/04/21 13:23:00 Anesthesia Times Last Modified By: Niecy Tran RN 01/04/21 13:27:01 Case Attendance FTURO Entry 1 Entry 2 Entry 3 Case Attendee ANASTASIA BENSON, Clifford Dalton FINAL COAT SPRAYER, Akin Mejias FINAL COAT SPRAYER, Debi Chand Role Performed Surgeon - Primary [...] Case Attendee Niecy Tran RN Role Performed Telephone Operator - Primary Time In 01/04/21 13:07:00 Time Out 01/04/21 13:27:00 Procedure CYSTOSCOPY LOCAL BOTOX INJECTION(.) Comments Last Modified By: Niecy Tran RN 01/04/21 13:27:02 Surgical Procedures FTURO Entry 1 Procedure Description Procedure CYSTOSCOPY LOCAL BOTOX Modifiers . INJECTION Surgeon Description CYSTOSCOPY BOTOX 50 UNITS LOT NUMBER [id number] EXP DATE 08/2023 Primary Procedure Yes Primary [...] Participants Sha PECK, Akin Cavazos, Applicable) Randell PEKC, Debi Chand, iNecy Tran RN Time Out Complete 01/04/21 13:08:00 [...] By: Niecy Tran RN 01/04/21 13:27 Normal [facility] Main OR Preoperative Recordo n 01-04-2021 Main OR Preoperative Record Holding Area Document Type FTURO Summary Primary Physician: Clifford OCONNOR MD Finalized Date/Time: 01/04/21 13:05:55 Pt. Name: MARY LEAL/Sex: 1970 Female Med Rec #: [id number] Physician: Clifford OCONNOR MD Financial #: [id number] Pt. Type: O Room/Bed: / Admit/Disch: 01/04/21 [...] 12:46 Niecy Tran RN 01/04/21 13:05 Normal [facility] Operative Reporton Operative Report Patient: ERNESTO [...] arranged, F/U in two weeks. . Normal [facility] Comment on above: Result Comment: Elec tronically Signed By: ANASTASIA BENSON, Clifford Levy.valerie\Date and Time Signed: 01/04/21 13:30 EST Outpatient Surgery Discharge Instructionon 01-04-2021 Outpatient Surgery Discharge Instruction [place] [address] Patient Discharge Instructions PERSON INFORMATION Name: MARY [...] Follow up: With: Address: When: Clifford OCONNOR [address] [place] [address], [address], [address] [address] Business (1) Within 2 weeks Comments: Call [...] to serve you. Thank you for choosing [facility] Normal [facility] PT - Assessmentson 1 PT - Assessments [id number]#1.00CD:1 27 Normal [facility] Ambulatory Clinical Summaryo n 11-11-2020 Ambulatory Clinical Summary {[id number]-[id number]-4d-ff- 27-36-5t-75-44-i1-c9-f1}C D:[id number] Normal [facility] Patient Educationon 11-11-19 21 Patient Education [...] urinary (more content not included)... Normal [facility] Urology Phone Visit- Telehealth [...] communication with the patient located at [address] [place] [phone] , with no one else. If it [...] Dawna Marmolejo MD [address] [place] [address]- [phone] Additional Instructions: Patient Education Urodynamic Testing Overactive [...] stream His (more content not included)... Normal [facility] Comment on above: Result Comment: Elec tronically Signed By: Francie BENSON, Dawna Feldman\.br\Date and Time Signed: 11/03/20 11:59 EST\.br\Electronically Co-Signed By: Christy Gill MA\.br\Date and Time Co-Signed: 10/21/20 12:01 EST Coding Summary.on 10-28-2020 Coding Summary. CODING DATE: 020 FINAL [facility] STATUS: Home (Routine DC) PAYOR: Medicaid EAPG [...] Eileen Scott Date Saved: 10/28/2020 11:17 am [facility] Ambulatory Clinical Summaryo n 10-27-2020 Ambulatory Clinical Summary {[id number]-f3- hs-p5-l3-79-79-99-c6-e5}C D:[id number] [facility] Consent for Procedure/Surger yon 10-27-2020 Consent for Procedure/Surgery [id number]#1.00CD: 127 [facility] Consent for Treatmenton 10-07 Consent for Treatment [id number]#1.00CD:12 7 Normal [facility] IntraOperative Documentson 1 12-28-2019 IntraOperative Documents [id number]#1.00CD: 127 Normal [facility] Patient Educationon 10-21-20 Patient Education Family [...] lab or depar (more content not included)... [facility] PT - Assessmentson 0 PT - Assessments [id number]#1.00CD:1 27 [facility] Nonvisit Note - PTon 020 Nonvisit Note - PT Per voicemail: she n eeds to cancel all of her PT due to personal reasons. KK [facility] Provider Letteron 09-09-2020 Provider Letter (Inserted Image. Jessica ble to display) September 09, 2020 MARY [place] [address] MARY LEAL 1970 Dear Mary Leal, You [...] appreciate your understanding. Sincerely, [facility] [address] [facility], [place] [address] [facility] PT - Assessmentson 0 PT - Assessments [id number]#1.00CD:1 27 [facility] PT - Assessments [id number]#1.00CD:1 27 [facility] PT - Assessmentson 0 PT - Assessments [id number]#1.00CD:1 27 [facility] PT - Consentson 08-31-2020 PT - Consents [id number]#1.00CD:1 27 [facility] Pre-Certification Formon Pre-Certification Form [id number]#1.00CD:12 7 [facility] Pre-Certification Form [id number]#1.00CD:12 7 [facility] Consent for Procedure/Surger yon 08-26-2020 Consent for Procedure/Surgery [id number]#1.00CD:12 7 [facility] Ambulatory Clinical Summaryo n 08-25-2020 Ambulatory Clinical Summary {[id number]-9r-65-15-m0-40-7c- 55-aw-3p-60-73-d0-7d-25}C D:[id number] [facility] Patient Educationon 08-25-20 Patient Education Family [...] an extended amount of time. Only take tsng-soa-gvtkhai or prescription medicines for pain, discomfort, or [...] Document Reviewed: 09/07/2009 ExitCare? Patient Information ?2013 [employer]. Normal [facility] Urology Office/Clinic Noteon 08-25-2020 Urology Office/Clinic Note [...] disease: Mother. Hypertension: Mother and Father. Normal [facility] Comment on above: Result Comment: Elec tronically Signed By: Dawna Marmolejo MD\.br\Date and Time Signed: 08/25/20 10:06 EDT\.br\Electronically Co-Signed By: Mary Hager\.br\Date and Time Co-Signed: 08/25/20 09:51 EDT Coding Summary.on 08-21-2020 Coding Summary. CODING DATE: 020 FINAL [facility] STATUS: PAYOR: Medicaid EA DESCRIPTION 0271 PHYSICAL [...] Raymond CphT Date Saved: 08/21/2020 10:42 am [facility] [place] 08-21-2020 Consent [id number]#1.00CD:12 7 [facility] Ambulatory Clinical Summaryo n 08-19-2020 Ambulatory Clinical Summary {[id number]-uf-46-[id number]-9x-47-65- 43-47-97-5d-x8-j9-c8-73}C D:[id number] [facility] Ambulatory Clinical Summary {[id number]-02-2a-4b-7l-4f-26- h6-82-78-43-09-j3-0d-3c}C D:[id number] [facility] Nonvisit Note - PTon 020 Nonvisit Note - PT Chart reviewed for scheduled eval. KK [facility] Patient Educationon 08-19-20 20 Patient Education [...] your urinary (more content not included)... Normal [facility] Urology Phone Visit- [facility] 08-19-2020 Urology Phone Visit- Telehealth Chief [...] only communication with the patient located at [address] [place], [place] [phone], with no one else. If it is [...] questions/concerns were discussed. Pt. acknowledges understanding. [place] [facility] [place] U[place] Procedure Order 2. Dysuria (R30.0: Dysuria) Moderate. [place] [facility] [place] Urology Procedure Order 3. Feeling of incomplete bladder emptying (R39.14: Feeling of incomplete bladder emptying) Pt. does not feel that she is emptying. [place] [facility] [place] Urology Procedure Order 4. Weak urine stream (R39.12: Poor urinary stream) Weak stream w/ moderate hesitancy. [place] [facility] [place] U[place] Procedure Order 5. [...] Will order Local anesthesia. ABX sent to [facility] in [place]. [place] [facility] [place] Urology Procedure Order 6. [...] Patient who (more content not included)... Normal [facility] Comment on above: Result Comment: Elec tronically Signed By: Francie BENSON, Dawna Feldman\.br\Date and Time Signed: 08/19/20 08:53 EDT\.br\Electronically Co-Signed By: Christy Gill MA\.br\Date and Time Co-Signed: 08/19/20 08:44 EDT Coding Summary.on 08-12-2020 Coding Summary. CODING DATE: 020 FINAL [facility] STATUS: Home (Routine DC) PAYOR: [...] Demi Fried Date Saved: 08/12/2020 09:42 am [facility] Formson 08-11-2020 Forms [id number]#1.00CD:12 7 [facility] C Urineon 08-09-2020 Bacteria identified Cx Nom (U) Microbiology PROCEDURE: Urine Culture [R1] SOURCE: U Random BODY SITE: COLLECTED DATE/TIME: 08/07/2020 15:46 EDT RECEIVED DATE/TIME: 08/07/2020 17:10 EDT START DATE/TIME: 08/07/2020 17:10 EDT FREE TEXT SOURCE: Francie BENSON, Dawna Kenny. Francie BENSON, Dawna Kenny. FINAL REPORTS Final Report [] Verified Date/Time: 08/09/2020 11:56 EDT 500 cfu/ml Mixed skin contaminants Performing Locations R1: This test was performed at: [facility], [address] [place] [address], [facility] , , [facility] Comment on above: Performed By: #### 2 [id number] ####[place] [address] Ambulatory Clinical Summaryo n 08-07-2020 Ambulatory Clinical Summary {4s-e3-98-es-20-90-4a-70- 07-wk-65-55-2l-xh-84-a2}C D:[id number] [facility] Patient Educationon 08-07-20 20 Patient Education [...] Document Reviewed: 07/18/2013 ExitCare? Patient Information ?2013 [place], [facility]. Family Medicine Overactive Bladder, Adult The [...] bladder, your (more content not included)... Normal [facility] Urology Office/Clinic Noteon 08-07-2020 Urology Office/Clinic [...] information and history for this patient from [facility] Ron iKng There have been no associated fever, chills, [...] setting of nocturia q2hrs and daytime frequency m9isudb with painful post void bladder sensation of [...] [address] (more content not included)... Normal [facility] Comment on above: Result Comment: Elec tronically Signed By: Dawna Marmolejo MD\.br\Date and Time Signed: 08/07/20 15:54 EDT\.br\Electronically Co-Signed By: Radha Hare MA\.br\Date and Time Co-Signed: 08/07/20 15:44 EDT Vital Signs Date Time Vital Sign Value Performing Clinician Facility 01-10-2024 12:40-0500 Body height 162.6 cm Cullen Dawkins MD Work Phone: [facility] 01-10-2024 12:40-0500 Body mass index (BMI) [Ratio] 27.89 kg/m2 Cullen Dawkins MD Work Phone: [facility] 01-10-2024 12:40-0500 Body weight 73.7 kg Cullen Dawkins MD Work Phone: [facility] 12-20-2023 12:21-0500 Body height 162.6 cm [facility] 12-20-2023 12:21-0500 Body mass index (BMI) [Ratio] 28.38 kg/m2 [facility] 13 [facility] 12-20-2023 12:21-0500 Body temperature 98.2 [degF] [facility] 13 [facility] 12-20-2023 12:21-0500 Body weight 75 kg [facility] 13 [facility] 12-20-2023 12:21-0500 Diastolic blood pressure 90 mm[Hg] [facility] 13 [facility] 12-20-2023 12:21-0500 Heart rate 72 /min [facility] 13 [facility] 12-20-2023 12:21-0500 Respiratory rate 18 /min [facility] 13 [facility] 12-20-2023 12:21-0500 SaO2% (BldA) [Mass fraction] 96 % [facility] 13 [facility] 12-20-2023 12:21-0500 Systolic blood pressure 138 mm[Hg] [facility] 13 [facility] 11-23-2023 08:14-0500 Body height 162.56 cm DO Shannon Gómez Work Phone: [facility] 11-23-2023 08:14-0500 Body weight 70.3 kg DO Shannon Gómez Work Phone: [facility] 08-12-2023 07:08-0400 Diastolic blood pressure 65 mm[Hg] Lex Salmon MD Work Phone: [facility] 08-12-2023 07:08-0400 Heart rate 77 /min Lex Salmon MD Work Phone: [facility] 08-12-2023 07:08-0400 SaO2% (BldA) [Mass fraction] 98 % Lex Salmon MD Work Phone: [facility] 08-12-2023 07:08-0400 Systolic blood pressure 132 mm[Hg] Lex Salmon MD Work Phone: [facility] 08-12-2023 06:48-0400 Respiratory rate 13 /min Lex Salmon MD Work Phone: [facility] 08-12-2023 00:25-0400 Body height 162.6 cm Lex Salmon MD Work Phone: [facility] 08-12-2023 00:25-0400 Body mass index (BMI) [Ratio] 28.01 kg/m2 Lex Salmon MD Work Phone: [facility] 08-12-2023 00:25-0400 Body temperature 97.59 [degF] Lex Salmon MD Work Phone: [facility] 08-12-2023 00:25-0400 Body weight 74.03 kg Lex Salmon MD Work Phone: [facility] 07-31-2023 14:27-0400 Body height 162.6 cm Nelsy Chávez INSTRUCTIONAL AIDE.IMPLEMENTATION PROJECT MANAGER Work Phone: [facility] 07-31-2023 14:27-0400 Body weight 69.85 kg Nelsy Chávez INSTRUCTIONAL AIDE.IMPLEMENTATION PROJECT MANAGER Work Phone: [facility] 07-31-2023 14:27-0400 Diastolic blood pressure 96 mm[Hg] Nelsy Chávez INSTRUCTIONAL AIDE.IMPLEMENTATION PROJECT MANAGER Work Phone: [facility] 07-31-2023 14:27-0400 Heart rate 76 /min Nelsy Chávez INSTRUCTIONAL AIDE.IMPLEMENTATION PROJECT MANAGER Work Phone: [facility] 07-31-2023 14:27-0400 Systolic blood pressure 136 mm[Hg] Nelsy Chávez INSTRUCTIONAL AIDE.IMPLEMENTATION PROJECT MANAGER Work Phone: [facility] 06-13-2023 10:37-0400 Body height 162.56 cm Eliceo Gómez Work Phone: [facility] DO Work Phone: 06-13-2023 10:37-0400 Body mass index (BMI) [Ratio] 27.46 kg/m2 Eliceo Gómez Work Phone: [facility] DO Work Phone: 06-13-2023 10:37-0400 Body surface area Derived from formula 1.78 m2 Eliceo Gómez Work Phone: [facility] DO Work Phone: 06-13-2023 10:37-0400 Body weight 72.58 kg Eliceo Gómez Work Phone: [facility] DO Work Phone: 06-13-2023 10:37-0400 Diastolic blood pressure 70 mm[Hg] Eliceo Gómez Work Phone: [facility] DO Work Phone: 06-13-2023 10:37-0400 Heart rate 70 /min Eliceo Gómez Work Phone: [facility] DO Work Phone: 06-13-2023 10:37-0400 Systolic blood pressure 100 mm[Hg] Eliceo Gómez Work Phone: [facility] DO Work Phone: 06-13-2023 10:37-0400 11 1 Eliceo Gómez Work Phone: [facility] DO Work Phone: Comment on above: PHQ-9 TS 06-05-2023 13:23-0400 Diastolic blood pressure 68 mm[Hg] DO Shannon Gómez Work Phone: [facility] 06-05-2023 13:23-0400 Heart rate 72 /min DO IsatuReno Szymanskijerometomasa Work Phone: [facility] 06-05-2023 13:23-0400 Respiratory rate 18 /min DO Shannon Szymanskijerometomasa Work Phone: [facility] 06-05-2023 13:23-0400 SaO2% (BldA) [Mass fraction] 97 % DO IsatuReno Szymanskijerometomasa Work Phone: [facility] 06-05-2023 13:23-0400 Systolic blood pressure 129 mm[Hg] DO IsatuReno Szymanskileigha Work Phone: [facility] 06-05-2023 09:32-0400 Body height 162.56 cm DO Shannon Gómez Work Phone: [facility] 06-05-2023 09:32-0400 Body weight 73.9 kg DO Shannon Gómez Work Phone: [facility] 06-05-2023 09:31-0400 Body temperature 97.5 [degF] DO Shannon Gómez Work Phone: [facility] 01-16-2023 13:18-0400 Body height 162.6 cm [facility] 01-16-2023 13:18-0400 [facility]-21-[facility] 08:00-0500 Body height 162.6 cm [facility] Work Phone: [facility] 11-21-2022 08:00-0500 Body weight 64.86 kg [facility] Work Phone: [facility] 10-11-2022 10:08-0500 Body height 162.6 cm Isra Masters DO Work Phone: [facility] 10-11-2022 10:08-0500 Body weight 78.02 kg Isra Galarzae DO Work Phone: [facility] 10-11-2022 10:08-0500 Diastolic blood pressure 97 mm[Hg] Isra Masters DO Work Phone: [facility] 10-11-2022 10:08-0500 Heart rate 89 /min Isra Masters DO Work Phone: [facility] 10-11-2022 10:08-0500 Systolic blood pressure 141 mm[Hg] Isra Masters DO Work Phone: [facility] 10-10-2022 14:30-0500 Body height 162.56 cm Annette Cartagena Other [employer] Other 10-10-2022 14:30-0500 Body mass index (BMI) [Ratio] 28.66 kg/m2 Annette Cartagena Other [employer] Other 10-10-2022 14:30-0500 Body weight 75.75 kg Annette Cartagena Other [employer] Other 07-26-2022 11:13-0400 Body height 162.6 cm Mary Obrien MD Work Phone: [facility] 07-26-2022 11:13-0400 Body temperature 97.5 [degF] Mary Obrien MD Work Phone: [facility] 07-26-2022 11:13-0400 Body weight 77.56 kg Mary Obrien MD Work Phone: [facility] 07-26-2022 11:13-0400 Diastolic blood pressure 83 mm[Hg] Mary Obrien MD Work Phone: [facility] 07-26-2022 11:13-0400 Heart rate 95 /min Mary Obrien MD Work Phone: [facility] 07-26-2022 11:13-0400 SaO2% (BldA) [Mass fraction] 97 % Mary Obrien MD Work Phone: [facility] 07-26-2022 11:13-0400 Systolic blood pressure 110 mm[Hg] Mary Obrien MD Work Phone: [facility] 05-26-2022 11:45-0400 Body height 162.56 cm Annette Harris Other [employer] Other 05-26-2022 11:45-0400 Body mass index (BMI) [Ratio] 29.18 kg/m2 Annette Harris Other [employer] Other 05-26-2022 11:45-0400 Body weight 77.11 kg Annette Harris Other [employer] Other 07-07-2022 09:06-0400 Diastolic blood pressure 80 mm[Hg] Eliceo Gómez Work Phone: [facility] DO Work Phone: 05-12-2022 09:06-0400 Systolic blood pressure 126 mm[Hg] Eliceo Gómez Work Phone: [facility] DO Work Phone: 05-12-2022 08:57-0400 Body height 162.56 cm Eliceo Gómez Work Phone: [facility] [facility] DO Work Phone: 05-12-2022 08:57-0400 Body mass index (BMI) [Ratio] 29.87 kg/m2 Eliceo Gómez Work Phone: [facility] DO Work Phone: 05-12-2022 08:57-0400 Body surface area Derived from formula 1.84 m2 Eliceo Gómez Work Phone: [facility] [facility] DO Work Phone: 05-12-2022 08:57-0400 Body weight 78.93 kg Eliceo Gómez Work Phone: [facility] [facility] DO Work Phone: 05-12-2022 08:57-0400 Diastolic blood pressure 80 mm[Hg] Eliceo Gómez Work Phone: [facility] [facility] DO Work Phone: 05-12-2022 08:57-0400 Heart rate 68 /min Eliceo Asiya Szymanskileigha Work Phone: [facility] [facility] DO Work Phone: 05-12-2022 08:57-0400 Systolic blood pressure 130 mm[Hg] Eliceo Gómez Work Phone: [facility] DO Work Phone: 05-10-2022 12:30-0400 Body height 162.56 cm Allison Arita Other [employer] Other 05-10-2022 12:30-0400 Body mass index (BMI) [Ratio] 29.18 kg/m2 Allison Arita Other [employer] Other 05-10-2022 12:30-0400 Body temperature 97.3 [degF] Allison Arita Other [employer] Other 05-10-2022 12:30-0400 Body weight 77.11 kg Allison Arita Other [employer] Other 05-10-2022 12:30-0400 Respiratory rate 18 /min Allison Arita Other [employer] Other 05-10-2022 12:30-0400 SaO2% (BldA) [Mass fraction] 98 % Allison Arita Other [employer] Other 04-22-2022 12:04-0400 Body height 162.6 cm Jessi Sheets APRN.IMPLEMENTATION PROJECT MANAGER Work Phone: [facility] 04-22-2022 12:04-0400 Body weight 77.56 kg Jessi Sheets APRN.IMPLEMENTATION PROJECT MANAGER Work Phone: [facility] 04-22-2022 12:04-0400 Diastolic blood pressure 68 mm[Hg] Jessi Sheets APRN.IMPLEMENTATION PROJECT MANAGER Work Phone: [facility] 04-22-2022 12:04-0400 Heart rate 76 /min Jessi Sheets APRN.IMPLEMENTATION PROJECT MANAGER Work Phone: [facility] 04-22-2022 12:04-0400 SaO2% (BldA) [Mass fraction] 98 % Jessi Sheets INSTRUCTIONAL AIDE.IMPLEMENTATION PROJECT MANAGER Work Phone: [facility] 04-22-2022 12:04-0400 Systolic blood pressure 104 mm[Hg] Jessi Sheets APRN.IMPLEMENTATION PROJECT MANAGER Work Phone: [facility] 03-15-2022 16:30-0400 Body height 162.56 cm Annette Pradeeptonia Other [employer] Other 03-15-2022 16:30-0400 Body mass index (BMI) [Ratio] 30.55 kg/m2 Annette Fernándeztonia Other [employer] Other 03-15-2022 16:30-0400 Body weight 80.74 kg Annette Fernándeztonia Other [employer] Other 03-15-2022 08:36-0400 Body height 162.6 cm Isra Masters DO Work Phone: [facility] 03-15-2022 08:36-0400 Body weight 83.01 kg Isra Masters DO Work Phone: [facility] 03-15-2022 08:36-0400 Diastolic blood pressure 87 mm[Hg] Isra Masters DO Work Phone: [facility] 03-15-2022 08:36-0400 Heart rate 85 /min Isra Masters DO Work Phone: [facility] 03-15-2022 08:36-0400 SaO2% (BldA) [Mass fraction] 100 % Isra Masters DO Work Phone: [facility] 03-15-2022 08:36-0400 Systolic blood pressure 133 mm[Hg] Isra Masters DO Work Phone: [facility] 03-14-2022 10:23-0400 Body height 162.6 cm Pacc 4 Work Phone: [facility] 03-14-2022 10:23-0400 Body temperature 97.2 [degF] Pacc 4 Work Phone: [facility] 03-14-2022 10:23-0400 Body weight 83.01 kg Pacc 4 Work Phone: [facility] 03-14-2022 10:23-0400 Diastolic blood pressure 76 mm[Hg] Pacc 4 Work Phone: [facility] 03-14-2022 10:23-0400 Heart rate 74 /min Pacc 4 Work Phone: [facility] 03-14-2022 10:23-0400 Respiratory rate 16 /min Pacc 4 Work Phone: [facility] 03-14-2022 10:23-0400 SaO2% (BldA) [Mass fraction] 98 % Pacc 4 Work Phone: [facility] 03-14-2022 10:23-0400 Systolic blood pressure 114 mm[Hg] Pacc 4 Work Phone: [facility] 02-18-2022 09:43-0400 Body height 162.6 cm Nelsy Chávez INSTRUCTIONAL AIDE.IMPLEMENTATION PROJECT MANAGER Work Phone: [facility] 02-18-2022 09:43-0400 Body weight 80.29 kg Nelsy Chávez INSTRUCTIONAL AIDE.IMPLEMENTATION PROJECT MANAGER Work Phone: [facility] 02-18-2022 09:43-0400 Diastolic blood pressure 70 mm[Hg] Nelsy Chávez INSTRUCTIONAL AIDE.IMPLEMENTATION PROJECT MANAGER Work Phone: [facility] 02-18-2022 09:43-0400 Systolic blood pressure 110 mm[Hg] Nelsy Chávez INSTRUCTIONAL AIDE.IMPLEMENTATION PROJECT MANAGER Work Phone: [facility] 02-08-2022 14:52-0400 Body height 162.6 cm Mary Obrien MD Work Phone: [facility] 02-08-2022 14:52-0400 Body weight 83.01 kg Mary Obrien MD Work Phone: [facility] 02-08-2022 14:52-0400 Diastolic blood pressure 76 mm[Hg] Mary Obrien MD Work Phone: [facility] 02-08-2022 14:52-0400 Heart rate 79 /min Mary Obrien MD Work Phone: [facility] 02-08-2022 14:52-0400 SaO2% (BldA) [Mass fraction] 97 % Mary Obrien MD Work Phone: [facility] 02-08-2022 14:52-0400 Systolic blood pressure 113 mm[Hg] Mary Obrien MD Work Phone: [facility] 02-08-2022 11:19-0400 Body weight 83.01 kg Magali Mitchell INSTRUCTIONAL AIDE.IMPLEMENTATION PROJECT MANAGER Work Phone: [facility] 02-08-2022 11:19-0400 Diastolic blood pressure 76 mm[Hg] Magali Mitchell INSTRUCTIONAL AIDE.IMPLEMENTATION PROJECT MANAGER Work Phone: [facility] 02-08-2022 11:19-0400 Heart rate 74 /min Magali Mitchell INSTRUCTIONAL AIDE.IMPLEMENTATION PROJECT MANAGER Work Phone: [facility] 02-08-2022 11:19-0400 Systolic blood pressure 113 mm[Hg] Magali Mitchell INSTRUCTIONAL AIDE.IMPLEMENTATION PROJECT MANAGER Work Phone: [facility] 10-20-2021 09:45-0500 Body height 162.56 cm Annette Harris Other [employer] Other 10-20-2021 09:45-0500 Body mass index (BMI) [Ratio] 31.41 kg/m2 Annette Harris Other [employer] Other 10-20-2021 09:45-0500 Body weight 83.01 kg Annette Harris Other [employer] Other 08-19-2021 17:10-0400 Body height 162.56 cm Erica Kingston Other [employer] Other 08-19-2021 17:10-0400 Body mass index (BMI) [Ratio] 31.24 kg/m2 Erica Vashti Other [employer] Other 08-19-2021 17:10-0400 Body temperature 97.3 [degF] Erica Vashti Other [employer] Other 08-19-2021 17:10-0400 Body weight 82.56 kg Erica Kumarmond Other [employer] Other 08-19-2021 17:10-0400 Diastolic blood pressure 82 mm[Hg] Erica Kumarmond Other [employer] Other 08-19-2021 17:10-0400 Respiratory rate 18 /min Erica Kumarmond Other [employer] Other 08-19-2021 17:10-0400 SaO2% (BldA) [Mass fraction] 98 % Erica Kingston Other [employer] Other 08-19-2021 17:10-0400 Systolic blood pressure 126 mm[Hg] Erica Vashti Other [employer] Other 08-13-2021 10:15-0400 Body height 162.56 cm Tita Ginty Other [employer] Other 08-13-2021 10:15-0400 Body mass index (BMI) [Ratio] 30.89 kg/m2 Tita Ginty Other [employer] Other 08-13-2021 10:15-0400 Body temperature 6 [degF] Tita Ginty Other [employer] Other 08-13-2021 10:15-0400 Body weight 81.65 kg Tita Dat Other [employer] Other 08-13-2021 10:15-0400 SaO2% (BldA) [Mass fraction] 99 % Tita Pinanty Other [employer] Other 07-28-2021 09:30-0400 Body height 162.56 cm Annette Harris Other [employer] Other 07-28-2021 09:30-0400 Body mass index (BMI) [Ratio] 30.89 kg/m2 Annette Harris Other [employer] Other 07-28-2021 09:30-0400 Body weight 81.65 kg Annette Harris Other [employer] Other Encounters Encounter Date Encounter Type Care Provider Facility Start: 01-10-2024 End: 01-10-2024 ambulatory [facility] Start: 01-10-2024 End: 01-10-2024 Postop follow up visit related to original px Cullen Dawkins MD Work Phone: [facility] Comment on above: CHUCKIE (obstructive sle ep apnea) (Primary Dx) Start: 01-03-2024 End: 01-03-2024 Evaluation and management of inpatient RAJIV Ellis [facility] Start: 01-02-2024 End: 01-03-2024 Evaluation and management of inpatient [facility] Start: 01-02-2024 End: 01-02-2024 Evaluation and management of inpatient [facility] Start: 12-27-2023 Telephone encounter Cullen glover MD Work Phone: [facility] Start: 12-25-2023 End: 12-26-2023 ambulatory Pam Wang MD Work Phone: URO/Gynecology Comment on above: Having another stimu lator besides bladder Start: 12-25-2023 Telephone encounter Pam simon MD Work Phone: Gynecology Comment on above: Question Start: 12-20-2023 End: 12-20-2023 ambulatory CULLEN DAWKINS [facility] Start: 12-20-2023 Encounter for other preprocedural examination RAJIV GYPSUMJONATHAN [facility] Start: 12-20-2023 End: 12-20-2023 Patient encounter procedure [facility] 13 [facility] Comment on above: Pre-op testing (Prim tomer Dx) Start: 12-20-2023 End: 12-20-2023 Patient encounter status [facility] Start: 12-11-2023 End: 12-12-2023 ambulatory Ace Ahumada MD Facility:[facility] Start: 11-30-2023 End: 11-30-2023 ambulatory EAGLE VAZQUEZ Not Available Start: 11-27-2023 End: 11-27-2023 ambulatory Annette Harris Other [facility] Other Start: 11-27-2023 Telephone [facility] Start: 11-23-2023 End: 11-23-2023 ambulatory Eagle Vazquez Facility:[facility] Start: 11-23-2023 End: 11-23-2023 ambulatory DO Shannon Gómez Work Phone: [facility] Work Phone: Start: 11-23-2023 End: 11-23-2023 Patient encounter procedure DO Shannon Gómez Work Phone: [facility] [place] Work Phone: Start: 11-21-2023 End: 11-21-2023 ambulatory PAM WANG Facility:[facility] Start: 11-16-2023 End: 11-16-2023 ambulatory Annette Harris Other [employer] Other Start: 11-16-2023 Telephone encounter Annette BATES [facility] Start: 11-14-2023 End: 11-14-2023 ambulatory DIPTI ACEVEDO Not Available Start: 11-14-2023 End: 11-14-2023 ambulatory EAGLE VAZQUEZ Not Available Start: 11-10-2023 End: 11-10-2023 ambulatory ELICEO GÓMEZ Not Available Start: 11-08-2023 [facility] Start: 10-31-2023 End: 11-01-2023 ambulatory RON Rivera TATALeah Not Available Start: 10-27-2023 End: 10-28-2023 ambulatory EAGLE VAZQUEZ Not Available Start: 10-26-2023 Telephone encounter Annette BATES [facility] Start: 10-26-2023 End: 10-26-2023 amb[facility] [employer] Other Start: 10-24-2023 End: 10-24-2023 ambulatory EAGLE VAZQUEZ Not Available Start: 10-23-2023 End: 10-23-2023 ambulatory [facility] Start: 10-10-2023 End: 10-10-2023 ambulatory PAM WANG Facility:[facility] Start: 10-06-2023 End: 10-06-2023 ambulatory Annette Harris Other [employer] Other Start: 10-06-2023 Telephone encounter Annette BATES [facility] Start: 10-03-2023 End: 10-04-2023 ambulatory ELICEO GÓMEZ Not Available Start: 09-27-2023 End: 09-27-2023 ambulatory Pam Wang MD Work Phone: Urogynecology Comment on above: Worsening Start: 09-27-2023 Refill Doris Arias APRN.IMPLEMENTATION PROJECT MANAGER Work Phone (unformatted): [phone] Urogynecology Comment on above: Med Change Request Start: 09-21-2023 End: 09-21-2023 ambulatory ELICEO GÓMEZ Not Available Start: 09-11-2023 End: 09-11-2023 ambulatory JAIRON LAI Facility:[facility] Start: 08-23-2023 End: 08-23-2023 ambulatory GIANA [facility] Start: 08-12-2023 End: 08-12-2023 Emergency department patient visit LEX SALMON [facility] Start: 08-12-2023 End: 08-12-2023 Emergency department patient visit Lex Salmon MD Work Phone: [facility] Emergency Dept Comment on above: Upper abdominal pain (Primary Dx) Start: 08-09-2023 ambulatory Mary Obrien MD Work Phone: Colorectal Surgery Comment on above: Response Start: 08-07-2023 End: 08-07-2023 ambulatory Mary Obrien MD Work Phone: Colorectal Surgery Comment on above: Colon Start: 08-01-[address] Eliceo Gómez Jr Facility: Start: 07-31-2023 End: 07-31-2023 ambulatory ELICEO GÓMEZ JR Facility:[facility] Start: 07-31-2023 End: 07-31-2023 Patient encounter procedure Nelsy Katya HAMMER Work Phone: URO/Gynecology Comment on above: Incomplete bladder e mptying (Primary Dx); Constipation, unspecified constipation type; Urinary urgency; Urinary frequency; Nocturia Start: 07-25-2023 End: [facility] Start: 07-17-2023 (Procedure) Win Harris [facility] Start: 07-17-2023 End: 07-17-2023 ambulatory Annette Harris Other [employer] Other Start: 07-12-2023 End: 07-12-2023 ambulatory Annette Harris Other [employer] Other Start: 07-12-2023 Telephone encounter [facility] Start: 06-13-2023 Office consultation new/estab patient 60 min Eliceo Gómez Work Phone: [facility] DO Work Phone: Start: 06-13-[address] Dipti Anaya Facility: Start: 06-08-2023 End: 06-08-2023 ambulatory [facility] Start: 06-07-[address] Dipti Anaya Facility:[id number] Start: 06-05-2023 End: 06-05-2023 Emergency department patient visit Anibal Leonard Facility:[facility] Start: 06-05-2023 End: 06-05-2023 Emergency department patient visit DO Shannon Gómez Work Phone: [facility] Work Phone: Start: 05-31-2023 End: 05-31-2023 ambulatory SIOMARA MONTAGUE [facility] Start: 05-28-2023 ambulatory Pam rios MD Work Phone: URO/Gynecology Comment on above: Problems with urinat ing Start: 05-22-2023 End: 05-22-2023 ambulatory [facility] Start: 05-17-2023 End: 05-17-2023 ambulatory [facility] Start: 05-17-2023 End: 05-17-2023 ambulatory [facility] Start: 04-26-2023 End: 04-26-2023 ambulatory Annette Harris Other [employer] Other Start: 04-26-2023 Office outpatient vi sit 25 minutes Annette Harris [facility] Start: 04-17-2023 ambulatory CARMEN DORSEY [facility] Start: 04-11-2023 Refill Isra S Clin e DO Work Phone: Gastroenterology Comment on above: Refill Request Start: 04-10-2023 ambulatory CARMEN [facility] Start: 04-04-2023 End: 04-05-[address] Isatu GÓMEZ Facility:[facility] Start: 03-20-2023 ambulatory CARMEN [facility] Start: 03-19-2023 ambulatory Isra S Clin e DO Work Phone: Gastroenterology Comment on above: Stool sample results Start: 03-17-2023 End: 03-17-2023 ambulatory Niecy Nicole Oliverio Facility:[facility] Start: 03-17-2023 End: 03-17-2023 ambulatory DO Shannon Gómez Work Phone: [facility] Work Phone: Start: 03-17-2023 End: 03-17-2023 Discharged Recurring DO Shannon Gómez Work Phone: [facility] [place] Work Phone: Start: 03-16-2023 End: 03-16-2023 ambulatory ELICEO GÓMEZ JR Facility:[facility] Start: 03-15-2023 Orders Only Isra S Clin e DO Work Phone: Gastroenterology Comment on above: Diarrhea due to power bsorption (Primary Dx) What lab? Start: 03-06-2023 End: 03-06-[address] Isaut GÓMEZ Facility:[facility] Start: 03-06-2023 ambulatory CARMEN [facility] Start: 02-27-2023 ambulatory CARMEN [facility] Start: 02-21-2023 End: 02-22-[address] Isatu GÓMEZ Facility:[facility] Start: 02-20-2023 ambulatory CARMEN [facility] Start: 02-19-2023 End: 02-19-[address] Isatu GÓMEZ Facility:[facility] Start: 02-16-2023 End: 02-16-2023 ambulatory [facility] Start: 02-13-2023 ambulatory CARMEN [facility] Start: 02-06-2023 ambulatory CARMEN [facility] Start: 02-02-2023 End: 02-02-2023 ambulatory GIANA MORALES [facility] Start: 01-31-2023 End: 02-01-2023 ambulatory NIECY DURON Facility:[facility] Start: 01-27-2023 End: 01-27-[address] Isatu GÓMEZ Facility:[facility] Start: 01-23-2023 ambulatory [facility] [facility] Start: 01-20-2023 ambulatory Winston chand DO Work Phone: General Surgery Comment on above: Clarification Start: 01-19-2023 ambulatory Winston chand DO Work Phone: General Surgery Comment on above: General Start: 01-16-2023 Encounter for other preprocedural examination ELICEO GÓMEZ JR [facility] Start: 01-16-2023 Telephone encounter Mounika farrell PA-C Work Phone: Pre Anesthesia Comment on above: Appointment (Pt has not arrived for her 1 pm appointment) Start: 01-16-2023 End: 01-16-2023 [facility] Start: 01-16-2023 End: 01-16-2023 ambulatory WINSTON [...] with patient Winston Hannah DO Work Phone: [facility] [employer] Start: 01-06-2023 End: 01-06-2023 ambulatory ANNETTE ALIE [facility] Start: 01-02-2023 End: 01-02-2023 ambulatory CARMEN KAILA [facility] Start: 12-28-2022 ambulatory Yoni Tuttle MD Work Phone: NEUROLOGY Comment on above: No response Start: 12-26-2022 End: 12-26-2022 Subsequent hospital visit [...] with patient Winston Hannah DO Work Phone: [facility] Start: 12-21-2022 End: 12-22-2022 [facility] Start: 12-15-2022 End: 12-15-2022 Manual pelvic examination Mary Obrien MD Work Phone: Colorectal Surgery Comment on above: Colonic inertia (Phoebe unique Dx); Pelvic floor dysfunction; Nausea; Gastroparesis Start: 12-15-2022 End: 12-15-2022 Telemedicine consultation with patient Mary Obrien MD Work Phone: [facility] Start: 12-14-2022 ambulatory Yoni Tuttle MD Work Phone: NEUROLOGY Comment on above: Right number? Start: 12-12-2022 ambulatory CARMEN [facility] Start: 12-09-2022 End: 12-09-2022 ambulatory Mary Obrien MD Work Phone: Colorectal Surgery Comment on above: Colon Start: 12-09-2022 Telephone encounter Mary brewer MD Work Phone: Colorectal Surgery Comment on above: Patient Question Start: 12-08-2022 Telephone encounter Isra S Masters DO Work Phone: Gastroenterology Comment on above: Results (Sigmoidosco py results; patient questions) Start: 12-07-2022 ambulatory Winston Kenny Trevubi c DO Work Phone: General Surgery Comment on above: Carafate Start: 12-06-2022 ambulatory Isra S Clin e DO Work Phone: Gastroenterology Comment on above: Results Start: 12-05-2022 ambulatory Winston Kenny Caroline c DO Work Phone: [facility] Start: 12-02-2022 ambulatory Isra S Clin e DO Work Phone: [facility] Start: 12-02-2022 Telephone encounter Yoni Tuttle MD Work Phone: Neurology Comment on above: Returning Nurse Call Start: 12-01-2022 End: 12-02-2022 ambulatory NIECY DURON Facility: Start: 11-30-2022 End: 11-30-2022 ambulatory Isra S Masters DO Work Phone: Gastroenterology Comment on above: Chronic idiopathic c onstipation (Primary Dx); Nausea Start: 11-30-2022 End: 11-30-2022 Telemedicine consultation with patient Isra S Masters DO Work Phone: [facility] Start: 11-24-2022 ambulatory Isra S Clin e DO Work Phone: Gastroenterology Comment on above: SMART PILL RESULTS Approval for upcomin g pap titration test Start: 11-24-2022 Telephone encounter Yoni Tuttle MD Work Phone: Neurology Comment on above: Is PA Needed for PAP Titration Start: 11-22-2022 Telephone encounter Isra Masters Work Phone: Gastroenterology Comment on above: Patient Update Start: 11-21-2022 End: 11-21-2022 ambulatory Yoni Tuttle MD Work Phone: Pre Anesthesia Comment on above: Pre-op exam (Primary Dx); Primary hypertension; Mild persistent asthma without complication; Gastroparesis; CHUCKIE (obstructive sleep apnea) Orders Start: 11-21-2022 End: 11-21-2022 [facility] Work Phone: [facility] Start: 11-21-2022 End: 11-21-2022 Preprocedural examination done [facility] 2 Work Phone: Pre Anesthesia Start: 11-17-2022 ambulatory Annmarie Gillespie RN Gastroe nterology Start: 11-17-2022 Patient encounter procedure Annmarie Gillespie RN [facility] Start: 11-17-2022 End: 11-17-2022 Subsequent hospital visit by physician Capsule Work Phone: Gastroenterology Start: 11-16-2022 ambulatory Yoni Tuttle MD Work Phone: NEUROLOGY Comment on above: The delay Start: 11-15-2022 ambulatory Yoni Tuttle MD Work Phone: NEUROLOGY Comment on above: Labs Start: 11-14-2022 End: 11-15-2022 ambulatory NIECY DURON Facility:[facility]1 Start: 11-10-2022 Telephone encounter Annmarie Gillespie RNmergers and acquisitions attorney Comment on above: Preparations For Pro cedures [...] Encounter for preprocedural laboratory examination SADE WILDE [facility] Start: 10-20-2022 End: 10-20-2022 ambulatory Isra Thorpe Masters DO Work Phone: Gastroenterology Comment on above: Smart pill Cpap Start: 10-19-2022 End: 10-19-2022 ambulatory JENNIFER GARCIA Facility:[facility]1 Start: 10-18-2022 Refill Isra Thorpe Clin e DO Work Phone: Gastroenterology Comment on above: Refill Request Start: 10-17-2022 Telephone encounter Yoni Tuttle MD Work Phone: Neurology Comment on above: PAP Rx Faxed (DME: S HS ) Start: 10-17-2022 End: 10-18-[address] Isatu GÓMEZ Facility:[facility]1 Start: 10-14-2022 End: 10-14-2022 ambulatory DO Shannon Gómez Work Phone: [facility] Work Phone: Start: 10-14-2022 End: 10-14-2022 Discharged Recurring DO Shannon Gómez Work Phone: [facility] [place] Work Phone: Start: 10-13-2022 End: 10-14-2022 ambulatory SADE WILDE Facility:[facility]1 Start: 10-13-2022 End: 10-14-2022 Encounter for preprocedural laboratory examination SADE WILDE Facility:[facility]1 Start: 10-11-2022 End: 10-11-2022 ambulatory Annette Cartagena Other [employer] Other Start: 10-11-2022 Telephone encounter Annette Cartagena [facility] Start: 10-11-2022 End: 10-11-2022 Patient encounter procedure Isra Thorpe Masters DO Work Phone: Gastroenterology Comment on above: Gas bloat syndrome ( Primary Dx); Chronic idiopathic constipation; Gastroparesis Start: 10-10-2022 End: 10-10-2022 ambulatory Annette Cartagena Other [employer] Other Start: 10-10-2022 Office outpatient ne w 30 minutes Annette Cartagena [facility] Start: 10-06-2022 End: 10-06-2022 ambulatory Annette Harris Other [employer] Other Start: 10-06-2022 Patient encounter procedure Annette Harris [facility] [place] Start: 09-28-2022 Encounter for other preprocedural examination [facility] Start: 09-28-2022 Encounter for preprocedural cardiovascular examination [facility] Start: 09-26-2022 End: 09-27-2022 ambulatory [facility] Facility: Start: 09-22-2022 Office outpatient vi sit 25 minutes Annette Harris [facility] Start: 09-22-2022 Telephone encounter Annette BATES G [facility] [place] [facility] Start: 09-22-2022 End: 09-22-2022 ambulatory DO Shannon Gómez Work Phone: [employer] Other Start: 09-22-2022 End: 09-22-2022 Patient encounter procedure DO Shannon Gómez Work Phone: [facility] [place] [facility] Start: 09-14-2022 End: 09-14-2022 ambulatory Eliceo Gómez Other [employer] Other Start: 09-14-2022 Encounter by sierra Gómez [facility] Start: 09-14-2022 Office outpatient vi sit 15 minutes Annette Harris [facility] [place] [facility] Start: 09-14-2022 Telephone encounter Annette BATES G [facility] Start: 08-16-2022 ambulatory Mary Obrien MD Work Phone: Colorectal Surgery Comment on above: CT results Ct scan result lisa mercer Start: 08-16-2022 E-mail encounter kendra m caregiver Mary Obrien MD Work Phone: [facility] Start: 08-12-2022 End: 08-12-2022 Subsequent hospital visit by physician Ct Prep [facility] Start: 07-27-2022 End: 07-28-2022 ambulatory [facility] Facility: Start: 07-26-2022 Telephone encounter Isra Masters DO Work Phone: Gastroenterology Comment on above: Medication Problem; Medication 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 (PA for Dexlansoprazole) Start: 07-26-2022 End: 07-26-2022 Patient encounter procedure Mary Obrien MD Work Phone: Colorectal Surgery Comment on above: Follow-up examinatio n after colorectal surgery (Primary Dx); Periumbilical abdominal pain; Outlet dysfunction constipation; Colonic inertia Start: 06-08-2022 (Procedure) Short Annette Harris [facility] Start: 06-08-2022 End: 06-08-2022 ambulatory Annette Harris Other [employer] Other Start: 05-30-2022 Refill Mary Obrien MD Work Phone: Colorectal Surgery Comment on above: Refill Request Start: 05-26-2022 End: 05-26-2022 ambulatory Annette Harris Other [employer] Other Start: 05-26-2022 Office outpatient vi sit 25 minutes Annette Harris [facility] Start: 05-12-2022 Office consultation new/estab patient 60 min Eliceo Gómez Work Phone: [facility] 250 DO Work Phone: Start: 05-10-2022 End: 05-10-2022 ambulatory Allison Arita Other [employer] Other Start: 05-10-2022 Office outpatient vi sit 15 minutes Allison Lyla [facility] Start: 05-03-2022 Telephone encounter Mary brewer MD Work Phone: Colorectal Surgery Comment on above: Manager Information - O ther Start: 04-26-2022 Telephone encounter Mary brewer MD Work Phone: Colorectal Surgery Comment on above: Patient Question Start: 04-22-2022 End: 04-22-2022 Patient encounter procedure Jessi Sheets INSTRUCTIONAL AIDE.IMPLEMENTATION PROJECT MANAGER Work Phone: Colorectal Surgery Comment on above: Follow-up examinatio n after colorectal surgery (Primary Dx); Pelvic floor dysfunction Start: 04-17-2022 End: 04-17-2022 ambulatory CHASITY FREIRE . Facility: Start: 04-07-2022 Telephone encounter Rachael Kenny [facility] Department Comment on above: PostOp Follow-up Start: 03-22-2022 Telephone encounter Mary brewer MD Work Phone: Colorectal Surgery Comment on above: Patient Question Start: 03-15-2022 End: 03-15-2022 ambulatory Annette Harris Other [employer] Other Start: 03-15-2022 Office outpatient vi sit 15 minutes Annette Harris [facility] [place] Start: 03-15-2022 Telephone encounter Mary brewer MD Work Phone: Colorectal Surgery Comment on above: Manager Information - O ther Medication Preauthor ization (PA for Dexilant renewal) Outside Labs Results Start: 03-15-2022 End: 03-15-2022 Patient encounter procedure Isra Masters Work Phone: Gastroenterology Comment on above: Gastroesophageal ref lux disease, unspecified whether esophagitis present; Chronic idiopathic constipation Start: 03-14-2022 End: 03-14-2022 [place] [address] Work Phone: Pre Anesthesia Comment on above: Preop examination (P rimary Dx); Attention to ileostomy (HCC); Primary hypertension; Gastroparesis; Gastroesophageal reflux disease, unspecified whether esophagitis present; Mild persistent asthma without complication; Bipolar 1 disorder (HCC); Obesity (BMI 30.0-34.9) Start: 03-14-2022 End: 03-14-2022 Preprocedural examination done [facility] 4 Work Phone: Pre Anesthesia Start: 02-28-2022 Telephone encounter Isra Masters DO Work Phone: Gastroenterology Comment on above: Appointment (for scr ipt refill) Start: 02-18-2022 End: 02-18-2022 Patient encounter procedure Nelsy Chávez INSTRUCTIONAL AIDE.IMPLEMENTATION PROJECT MANAGER Work Phone: URO/Gynecology Comment on above: Postoperative state (Primary Dx) Start: 02-11-2022 End: 02-11-2022 ambulatory Flaca Bartholomew PT Work Phone: [facility] Start: 02-11-2022 End: 02-11-2022 Follow-up encounter Flaca Bartholomew PT Work Phone: [place] [facility] Physical Therapy Comment on above: Pelvic floor dysfunc tion (Primary Dx); Lack of coordination; Follow-up examination after colorectal surgery Start: 02-09-2022 (Procedure) Win Harris [facility] Start: 02-09-2022 End: 02-09-2022 ambulatory Annette Pradeeptonia Other [facility] [employer] Other Start: 02-08-2022 End: 02-08-2022 Patient encounter procedure Mary Obrien MD Work Phone: Colorectal Surgery Comment on above: Follow-up examinatio n after colorectal surgery (Primary Dx) Post-operative state (Primary Dx); Yeast infection of the skin Start: 02-01-2022 Refill Isra rios DO Work Phone: Gastroenterology Comment on above: Refill Request (dexl ansoprazole) Start: 01-31-2022 End: 01-31-2022 ambulatory Newton Woodward PT Work Phone: [facility] Start: 01-31-2022 End: 01-31-2022 Follow-up encounter Newton Woodward PT Work Phone: [facility] Physical Therapy Comment on above: Pelvic floor dysfunc tion (Primary Dx); Lack of coordination; Follow-up examination after colorectal surgery Start: 11-25-2021 End: 11-25-2021 ambulatory Annette Fernándeztonia Other [employer] Other Start: 11-25-2021 Office outpatient vi sit 25 minutes Annette Harris [facility] Start: 11-17-2021 End: 11-18-2021 ambulatory PARISH GÓMEZ [facility] Start: 10-20-2021 End: 10-20-2021 ambulatory Annette Harris Other [employer] Other Start: 10-20-2021 Office outpatient vi sit 25 minutes Annette Harris [facility] [place] [facility] Start: 10-13-2021 (Procedure) Short Annette Harris [facility] Start: 10-13-2021 End: 10-13-2021 ambulatory Annette Pradeeptonia Other [employer] Other Start: 09-06-2021 Office outpatient vi sit 25 minutes Annette Harris [facility] Start: 08-19-2021 Office outpatient vi sit 15 minutes Erica Kingston [facility] Start: 08-13-2021 Office outpatient vi sit 15 minutes Tita Daugherty [facility] Start: 08-12-2021 Office outpatient vi sit 25 minutes Annette Harris [facility] [place] Start: 07-28-2021 Office outpatient vi sit 25 minutes Annette Harris [facility] [place] [facility] Procedures Date Procedure Procedure Detail Performing Clinician Start: 12-20-2023 Basic metabolic pane l calcium total Caroline Brewer MD Work Phone: Start: 11-23-2023 Radionuclide imaging of liver and/or biliary tract using radioactive isotope DO Shannon Gómez Work Phone: Start: 11-01-2023 Lipid 1996 panel - S jay or Plasma Pam Wang MD Work Phone: Start: 10-23-2023 Follow-up visit Follow-up PAULINE CHRISTENSEN Start: 10-23-2023 Adult depression scr eening assessment Emily Zamora Start: 08-12-2023 Assay of troponin quantitative Lev Ritter DANN IMPLEMENTATION PROJECT MANAGER Work Phone: Start: 08-12-2023 Ct abdomen & pelvis w/contrast material Lev Ritter DANN IMPLEMENTATION PROJECT MANAGER Work Phone: Start: 08-12-2023 Urnls dip stick/tabl et reagent auto microscopy Lex Salmon MD Work Phone: Start: 08-12-2023 Basic metabolic pane l calcium total Lex Salmon MD Work Phone: Start: 08-12-2023 DARK GREEN TOP Lex buitrago MD Work Phone: Start: 08-12-2023 GOLD TOP Lex bacon MD Work Phone: Start: 08-12-2023 Hepatic function panel Levalayna Ritter APRN [facility] Work Phone: Start: 08-12-2023 LIGHT BLUE [...] et rgnt auto w/o microscopy Nelsy Chávez INSTRUCTIONAL AIDE.[facility] Work Phone: Start: 06-05-2023 Plain chest X-ray DO Shannon Gómez Work Phone: Start: 04-27-2023 Aerobic microbial culture DO Shannon Gómez Work [...] - S jay or Plasma Nelsy Chávez INSTRUCTIONAL AIDE.IMPLEMENTATION PROJECT MANAGER Work Phone: Start: 02-08-2022 Urnls dip stick/tabl et rgnt auto w/o microscopy Magali Mitchell INSTRUCTIONAL AIDE.IMPLEMENTATION PROJECT MANAGER Work Phone: Start: 12-16-2021 Antibody screen Comment on above: Performed By: #### T [id number] ####[place] [phone] Start: 10-15-2021 Antibody screen Comment on above: Performed By: #### T SCR30 ####[place] [phone] Start: 06-28-2021 Mammography Mary brewer MD Work Phone: Start: 02-18-2021 H/O: surgery S/P nasal septoplasty C hrluisa Sera Start: 02-18-2021 History of tonsillectomy S/P tonsill ectomy Emily Hisamelia Colonoscopy Eliceo Gómez Work Phone: Hysterectomy Eliceo [...] DTAP/TDAP/TD VACCINE (2 - Td or Tdap) [facility] Start: 06-22-2030 DTaP,Tdap and Td Vaccines (2 - Td or Tdap) DTaP,Tdap and Td Vaccines (2 - Td or Tdap) [facility] Start: 06-22-2030 Urine microalbumin profile DTaP,Tdap,Td Vaccine (2 - Td or Tdap) [facility] Start: 11-01-2028 Lipid panel Lipid Screening [facility] Start: 12-05-2027 COLORECTAL CANCER SCREENING COLORECTAL CANCER SCREENING [facility] Start: 12-05-2027 Screening for malign ant neoplasm of colon [facility] Start: 12-05-2027 SIGMOIDOSCOPY SIGMOIDOSCOPY [facility] Start: 03-02-2027 Lipid 1996 panel - S jay or Plasma Lipid Screening [facility] Start: 03-02-2027 LIPID SCREEN LIPID SCREEN [facility] Start: 08-12-2026 Diabetes Screening Diabetes Screenin [facility] Start: 04-05-2025 DIABETES SCREEN DIABETES SCREEN [facility] Start: 04-05-2025 Diabetes Screening Diabetes Screenin g [facility] Start: 03-14-2025 DIABETES SCREEN DIABETES SCREEN [facility] Start: 01-09-2025 Adult BMI Screening Adult BMI Screen ing [facility] Start: 01-09-2025 Tobacco Screening Tobacco Screening [facility] Start: 12-26-2024 DIABETES SCREEN DIABETES SCREEN [facility] Start: 12-20-2024 Adult BMI Screening Adult BMI Screen ing [facility] Start: 12-20-2024 Tobacco Screening Tobacco Screening [facility] Start: 10-31-2024 Screening for malign ant neoplasm of breast Mammogram Screening [facility] Start: 10-23-2024 Adult BMI Screening Adult BMI Screen ing [facility] Start: 10-23-2024 Depression Screening Depression Scre ening [facility] Start: 10-23-2024 Tobacco Screening Tobacco Screening [facility] Start: 10-10-2024 BP Controlled (<130/80) BP Controlle d (<130/80) [facility] Start: 04-18-2024 End: 04-18-2024 Patient encounter procedure 04/18/2024 1:30 PM EDT Office Visit [facility] [address] [place] [phone] Pauline Christensen MD [address] [place] [address], [address] [place] [phone] [facility] Start: 01-10-2024 End: 01-10-2024 Patient encounter procedure 01/10/2024 12:45 PM EST Office Visit [facility] [address] [place] [address], [address] [place] [phone] Cullen Dawkins MD [address] [place] [address] [address] [place] [address] [facility] Start: 01-02-2024 End: 01-02-2024 Admission to same day surgery center 01/02/2024 11:00 AM EST - 01/02/2024 3:30 PM EST Surgery [facility] - Surgery [address] [place] [address] Cullen Dawkins MD [address] [place] [address] [address] [place] [address] INSERTION STIMULATOR NERVE HYPOGLOSSAL [20080 (CPT )] [facility] - Surgery Comment on above: INSERTION STIMULATOR NERVE HYPOGLOSSAL [[id number] ([facility] )] Start: 01-02-2024 End: 01-02-2024 INSERTION STIMULATOR NERVE HYPOGLOSSAL INSERTION STIMULATOR NERVE HYPOGLOSSAL CHUCKIE (obstructive sleep apnea) 01/02/2024 11:00 AM EST [facility] Start: 01-02-2024 Subsequent hospital visit by physician 01/02/2024 11:00 AM EST Hospital Encounter [facility] Surgery [address] [place] [phone] Cullen Dawkins MD [address] [facility] [facility] [place] [address] [facility] - Surgery Start: 11-06-2023 Depression Assessment Depression Ass essment [facility] Start: 09-27-2023 End: 12-27-2023 Bacteria identified in Urine by Culture URINE CULTURE Microbiology Routine Burning with urination Expected: 09/27/2023, Expires: 12/27/2023 [facility] Work Phone: Comment on above: Expected: 09/27/2023 , Expires: 12/27/2023 Start: 09-14-2023 Screening for malign ant neoplasm of breast [facility]AMMO[facility] Start: 08-01-2023 FUV, Provider: Dipti Anaya, Status: Pen, Time: 11:00 AM FUV, Provider: Dipti Anaya, Status: Pen, Time: 11:00 AM [facility] 320 DO Work Phone: Start: 07-07-2023 Covid-19 Vaccine ( season) Covid-19 Vaccine ( season) [facility] Start: 07-07-2023 Influenza vaccination C [facility] Start: 07-07-2023 Influenza vaccinatio n given INFLUENZA VACCINE (#1) [facility] Start: 06-05-2023 [facility] Start: 04-22-2023 BP CONTROLLED (<130/80) BP CONTROLLE D (<130/80) [facility] Start: 03-14-2023 BP CONTROLLED (<130/80) BP CONTROLLE D (<130/80) [facility] Start: 02-18-2023 BP CONTROLLED (<130/80) BP CONTROLLE D (<130/80) [facility] Start: 02-08-2023 BP CONTROLLED (<130/80) BP CONTROLLE D (<130/80) [facility] Start: 01-18-2023 BP CONTROLLED (<130/80) BP CONTROLLE D (<130/80) [facility] Start: 11-06-2022 DEPRESSION ASSESSMENT DEPRESSION ASS ESSMENT [facility] Start: 09-22-2022 [facility] Start: 08-02-2022 End: 08-25-2023 Ct abdomen & pelvis w/contrast material CT ABD/PEL W IVCON Radiology Routine Periumbilical abdominal pain Expected: 08/02/2022, Expires: 08/25/2023 [facility] Work Phone: Comment on above: Expected: 08/02/2022 , Expires: 08/25/2023 Start: 07-07-2022 Influenza vaccination C [facility] Start: 06-28-2022 Mammography [facility] Start: 2022 Administration of varicella zoster vaccine Zoster (Shingles) Vaccine (1 of 2) [facility] Start: 2022 COVID-19 VACCINE (4 - Booster for Pfizer series) COVID-19 VACCINE (4 - Booster for Pfizer series) [facility] Start: 2022 SHINGRIX VACCINE (1 of 2) SHINGRIX VACCINE (1 of 2) [facility] Start: 2022 Zoster vaccine hzv l annika for subcutaneous use ZOSTER (SHINGLES) VACCINE (1 of 2) [facility] Start: 04-01-2022 End: 06-01-2022 CBC W Auto Differential panel - Blood CBC + DIFF Lab Routine Follow-up examination after colorectal surgery Expected: 04/01/2022, Expires: 06/01/2022 [facility] Work Phone: Comment on above: Expected: 04/01/2022 , Expires: 06/01/2022 Start: 04-01-2022 End: 06-01-2022 Comprehensive metabolic 2000 panel - Serum or Plasma COMP METABOLIC PANEL Lab Routine Follow-up examination after colorectal surgery Expected: 04/01/2022, Expires: 06/01/2022 [facility] Work Phone: Comment on above: Expected: 04/01/2022 , Expires: 06/01/2022 Start: 04-01-2022 End: 06-01-2022 TYPE AND SCREEN,30 DAY TYPE AND SCREEN,30 DAY Blood Bank Routine Follow-up examination after colorectal surgery Expected: 04/01/2022, Expires: 06/01/2022 [facility] Work Phone: Comment on above: Expected: 04/01/2022 , Expires: 06/01/2022 Start: 01-19-2022 COVID-19 VACCINE (4 - Booster for Pfizer series) COVID-19 VACCINE (4 - Booster for Pfizer series) [facility] Start: 01-19-2022 COVID-19 VACCINE (4 - Pfizer series) COVID-19 VACCINE (4 - Pfizer series) [facility] Start: 11-06-2021 DEPRESSION ASSESSMENT DEPRESSION ASS ESSMENT [facility] Start: 07-07-2021 Influenza vaccination INFLUENZA (#1) [facility] Start: 2017 COLOGUARD (FIT-DNA) COLOGUARD (FIT-D NA) [facility] Start: 2017 Colonoscopy COLONOSCOPY [facility] Start: 2017 COLORECTAL CANCER SCREENING COLORECTAL CANCER SCREENING [facility] Start: [address] COLONOGRAPHY [facility] Start: 2017 FECAL OCCULT BLOOD FECAL OCCULT BLOO D [facility] Start: 2017 LIPID SCREEN LIPID SCREEN [facility] Start: 2017 Screening for malign ant neoplasm of colon [facility] Start: 2017 SIGMOIDOSCOPY SIGMOIDOSCOPY [facility] Start: 2012 Mammography MAMMOGRAM [facility] Start: 10-11-2008 Hepatitis B Vaccine (3 of 3 - 19+ 3-dose series) Hepatitis B Vaccine (3 of 3 - 19+ 3-dose series) [facility] Start: 2002 HPV TESTING HPV TESTING [facility] Start: 2002 Screening for malign ant neoplasm of cervix HPV Testing [facility] Start: 1993 PAP TESTING PAP TESTING [facility] Start: 1993 Screening for malign ant neoplasm of cervix Pap Testing [facility] Start: 1991 Urine microalbumin profile [facility] Start: 1990 Adult BMI Follow Up Plan Adult BMI Follow Up Plan [facility] Start: 1990 ANNUAL PCP TEAM COUTURE DRESSMAKER ALEKSANDAR DISEASE VISIT ANNUAL PCP TEAM CHRONIC DISEASE VISIT [facility] Start: 1990 ANNUAL WELLNESS VISIT ANNUAL WELLNES S VISIT [facility] Start: 1990 BP CONTROLLED (<130/80) BP CONTROLLE D (<130/80) [facility] Start: 1990 HEPATITIS C SCREENING HEPATITIS C [facility] Start: 1990 Hepatitis C screening Hepatitis C [facility] Start: 1990 HIV SCREENING HIV SCREENING [facility] Start: 1990 HIV screening HIV Screening [facility] Start: 1984 Adult depression screening assessment DEPRESSION SCREENING [facility] Start: 1984 Depression screening using PHQ-9 (Patient Health Questionnaire 9) score DEPRESSION SCREENING [facility] Start: 1978 PNEUMOCOCCAL (1 - PCV) PNEUMOCOCCAL (1 - PCV) [facility] Start: 1978 Pneumococcal vaccination Pneum ococcal Vaccine (1 - PCV) [facility] Start: 1972 HEPATITIS B (1 of 3 - 3-dose series) HEPATITIS B (1 of 3 - 3-dose series) [facility] Start: 1972 Hepatitis B Vaccine (1 of 3 - 3-dose series) Hepatitis B Vaccine (1 of 3 - 3-dose series) [facility] Start: 1972 HPV/COTEST HPV/COTEST [facility] Start: 1972 Screening for malign ant neoplasm of cervix [facility] 12 lead ECG EKG 12 lead ECG REYNA 08/12/2023 12:28 AM EDT [employer] Work Phone: CT Abdomen and Pelvi s W contrast IV CT Abdomen / Pelvis With IV Contrast ONLY Imaging STAT 08/12/2023 5:42 AM EDT [employer] End: 01-12-2024 EGD - THERAPEUTIC, EUS, OR TUBE INTERVENTIONS EGD - THERAPEUTIC, EUS, OR TUBE INTERVENTIONS Endoscopy Routine Gastroparesis 1 Occurrences starting 01/11/2023 until 01/12/2024 [facility] Work Phone: Comment on above: 1 Occurrences starti ng 01/11/2023 until 01/12/2024 FAT, FECAL QUAL FAT, FECAL QUAL Lab Routine Diarrhea due to malabsorption Ordered: 03/15/2023 [facility] Work Phone: Comment on above: Ordered: 03/15/2023 End: 10-11-2023 Gi transit & pres ravinder wireless capsule w/interp CAPSULE ENDOSCOPY SMART Endoscopy Routine Gastroparesis 1 Occurrences starting 10/11/2022 until 10/11/2023 [facility] Work Phone: Comment on above: 1 Occurrences starti ng 10/11/2022 until 10/11/2023 End: 12-17-2023 PAP TITRATION PSG (CPAP, BIPAP, ASV) PAP TITRATION PSG (CPAP, BIPAP, ASV) Procedures Routine CHUCKIE (obstructive sleep apnea) 1 Occurrences starting 11/17/2022 until 12/17/2023 [facility] Work Phone: Comment on above: 1 Occurrences starti ng 11/17/2022 until 12/17/2023 Patient Education Chest Pain, Adult ED [facility] Work Phone: Patient referral [facility] Work Phone: SARS-CoV-2 (COVID-19 ) RNA [Presence] in Respiratory specimen by JOSÉ MIGUEL with probe detection SELF CHECK COVID Microbiology Routine Follow-up examination after colorectal surgery Ordered: 02/09/2022 [facility] Work Phone: Comment on above: Ordered: 02/09/2022 End: 11-30-2023 SIGMOIDOSCOPY SIGMOIDOSCOPY Endoscopy Routine Chronic idiopathic constipation 1 Occurrences starting 11/30/2022 until 11/30/2023 [facility] Work Phone: Comment on above: 1 Occurrences starti ng 11/30/2022 until 11/30/2023 End: 08-12-2023 Troponin I.cardiac [Mass/volume] in Serum or Plasma Troponin I (One time) Lab Timed Once for 1 Occurrences starting 08/12/2023 until 08/12/2023 [facility] Work Phone: Comment on above: Once for 1 Occurrenc es starting 08/12/2023 until 08/12/2023 URODYNAMICS [facility] URODYNAMICS [facility]I Procedures Routine Incomplete bladder emptying Urinary urgency Urinary frequency Nocturia Ordered: 07/31/2023 [facility] Work Phone: Comment on above: Ordered: 07/31/2023 [facility] c [facility] c [facility] c [facility] N Immunizations Immunization Date Immunization Notes Care Provider Shante rai 08-17-2022 influenza virus vaccine, unspecified formulation Nelsy Chávez APRN.CNP Work Phone: [facility] 11-24-2021 Pfizer-BioNTech COVID-19 Vacc 30 MCG/0.3ML Intramuscular Suspension Eliceo Gómez Work Phone: [facility] [employer] [address] DO Work Phone: 08-19-2021 KENALOG - 10 mg [employer] Other [employer] Other 05-11-2021 Pfizer-BioNTech COVID-19 Vacc 30 MCG/0.3ML Intramuscular Suspension Eliceo Gómez Work Phone: [facility] [employer] DO Work Phone: 04-20-2021 Pfizer-BioNTech COVID-19 Vacc 30 MCG/0.3ML Intramuscular Suspension Eliceo Gómez Work Phone: [facility] [employer] DO Work Phone: 09-02-2020 influenza, injectabl e, quadrivalent, preservative free Eliceo Gómez Work Phone: [facility] [employer] DO Work Phone: 08-06-2020 influenza, injectabl e, quadrivalent, preservative free Eliceo Gómez Work Phone: [facility] [employer] DO Work Phone: 06-22-2020 tetanus toxoid, redu nayeli diphtheria toxoid, and acellular pertussis vaccine, adsorbed Eliceo Gómez Work Phone: [facility] [employer] DO Work Phone: 02-01-2020 Toradol per 15 mg Annette turpin Other [employer] Other 07-15-2018 influenza, seasonal, injectable, preservative free Eliceo Gómez Work Phone: [facility] [employer] DO Work Phone: 07-14-2016 Rocephin 500 mg Annette ellis Other [employer] Other 05-12-2008 hepatitis B vaccine, adult dosage Eliceo Gómez Work Phone: [facility] [employer] DO Work Phone: 04-11-2008 hepatitis B vaccine, adult dosage Eliceo Gómez Work Phone: [facility] [employer] DO Work Phone: Payers Date Payer Category Payer Self-pay [id number] 2022 Unknown 2021 Medicaid [place] [employer] [place] [employer] [id number] 2021-Present [phone] [address] [place] [address] Medicaid [id number]. [id number] 2021 Medicaid [id number] 1.13.159.2.7.3. [id number] 1972 Unknown [id number] 2.16.840.1.684050.3.579.2.176 1972 Unknown [id number] 2.16.840.1.170990.3.579.2.593 1972 Unknown [id number] 2.16.840.1.673505.3.579.2.593 1972 Unknown [id number] 2.16.840.1.213860.3.579.2.593 1972 Unknown [id number] 2.16.840.1.079331.3.579.2.593 1972 Unknown [id number] 2.16.840.1.663239.3.579.2.593 1972 Unknown [id number] 2.16.840.1.722179.3.579.2.593 1972 Unknown [id number] 2.16.840.1.847961.3.579.2.593 1972 Unknown [id number] 2.16.840.1.881361.3.579.2.593 1972 Unknown [id number] 2.16.840.1.105490.3.579.2.593 1972 Unknown [id number] 2.16.840.1.810483.3.579.2.593 1972 Unknown [id number] 2.16.840.1.756675.3.579.2.593 1972 Unknown [id number] 2.16.840.1.492449.3.579.2.593 1972 Unknown [id number] 2.16.840.1.632459.3.579.2.593 1972 Unknown [id number] 2.16.840.1.348619.3.579.2.593 1972 Unknown [id number] 2.16.840.1.521462.3.579.2.593 1972 Unknown [id number] 2.16.840.1.176531.3.579.2.593 1972 Unknown [id number] 2.16.840.1.516008.3.579.2.593 1972 Unknown [id number] 2.16.840.1.312182.3.579.2.297 1972 Unknown [id number] 2.16.840.1.706224.3.579.2.297 1972 Unknown [id number] 2.16.840.1.370692.3.579.2.356 1972 Unknown [id number] 2.16.840.1.026788.3.579.2.356 1972 Unknown [id number] 2.16.840.1.015439.3.579.2.356 1972 Unknown [id number] 2.16.840.1.647520.3.579.2.1286 1972 Unknown [id number] 2.16.840.1.919811.3.579.2.1259 1972 Unknown [id number] 2.16.840.1.113760.3.579.2.1259 1972 Unknown [id number] 2.16.840.1.088618.3.579.2.1259 1972 Unknown [id number] 2.16.840.1.386797.3.579.2.1259 1972 Unknown [id number] 2.16.840.1.222827.3.579.2.1259 1972 Unknown [id number] 2.16.840.1.511157.3.579.2.9 1972 Unknown [id number] 2.16.840.1.129913.3.579.2.9 1972 Unknown [id number] 2.16.840.1.123328.3.579.2.1258 1972 Unknown [id number] 2.16.840.1.074151.3.579.2.9 1972 Unknown [id number] 2.16.840.1.875609.3.579.2.1258 1972 Unknown [id number] 2.16.840.1.035986.3.579.2.9 1972 Unknown [id number] 2.16.840.1.066429.3.579.2. 1972 Unknown [id number] 2.16.840.1.943312.3.579.2.196 1972 Unknown [id number] 2.16.840.1.175161.3.579.2.1285 1972 Unknown [id number] 2.16.840.1.176951.3.579.2.1285 1972 Unknown [id number] 2.16.840.1.208989.3.579.2.1285 1972 Unknown [id number] 2.16.840.1.883107.3.579.2.1285 1972 Unknown [id number] 2.16.840.1.822242.3.579.2.1285 1972 Unknown [id number] 2.16.840.1.133887.3.579.2.1285 1972 Unknown [id number] 2.16.840.1.319845.3.579.2.1286 1959 Medicaid [id number] 1959 Unknown [id number] [id number] Unknown [id number] 2.16.840.1.900855.3.579.2.531 Unknown [id number] 2.16.840.1.862539.3.579.2.531 Unknown [id number] 2.16.840.1.872615.3.579.2.531 Social History Date Type Detail Facility Start: 10-08-2020 End: 09-01-2022 Tobacco smoking status MSIS Never smoked tobacco [facility] Start: 10-08-2020 End: 09-01-2022 Tobacco use and exposure Smokeless tobacco non-user [facility] Start: 01-04-2022 End: 11-18-2023 Alcohol intake Lifetime non-drinker (finding) [facility] Start: 10-08-2020 History SDOH Alcohol Frequency 1 [facility] Start: 1970 Sex Assigned At Female C [facility] Start: 01-21-2022 End: 07-26-2022 Exposure to SARS-CoV-2 (event) Not sure [facility] Start: 10-08-2020 End: 11-23-2020 Sex Assigned At [facility] Start: 10-08-2020 End: 11-23-2020 No alcohol use No alcohol use [facility] Comment on above: 3 TEA WEEK; How often to you hav e a drink containing alcohol? Never [facility] Average Number of Drinks Not on file [facility] Start: 07-28-2020 Gender identity Identifies as female gender (finding) [facility] Start: 07-03-2021 Sexual orientation Heterosexual (fin quintin) [facility] Start: 06-05-2023 End: 06-05-2023 Tobacco smoking status NHIS Smoker (finding) [facility] Start: 1970 Sex Assigned At Not on file [facility] [employer] [facility] Start: 10-23-2023 End: 01-10-2024 Alcohol intake Ex-drinker (finding) [facility] Medical Equipment Procedure Code Equipment Code Equipment Origin al Text Equipment Identifier Dates Fibertak Union Self-Punching Knotless 2.6mm W/No 5 Suture [id number] Start: 10-14-2020 [employer]ertak Union Knotless 2.6mm [id number] Start: 10-14-2020 Union Swivelock C 4.75mm Biocomposite Peek 19.1mm Suture Closed Eyelet - [id number] Start: 10-14-2020 Sling Gynecare T vt Exact Gynecological Stress Urinary Incontinence - [id number] Start: 12-24-2021 DISC CERVICAL 13 [id number] MOBI-C FDA Start: 09-20-2017 DISC CERVICAL 13 [id number] MOBI-C FDA Start: 09-20-2017 DISC CERVICAL 13 [id number] MOBI-C FDA Start: 09-20-2017 DISC CERVICAL 13 [id number] MOBI-C FDA Start: 09-20-2017 DISC CERVICAL 13 [id number] MOBI-C FDA Start: 09-20-2017 Generator Nrstm - [id number]_[facility] Start: 01-02-2024 Lead Ns Respirat ory - [id number]_[facility] Start: 01-02-2024 Lead Nrstm Inspr 3 Elect Cuf Tnl Boni Strl Lf - [id number] - [id number]_[facility] Start: 01-02-2024 Clinical Notes 10-27-2020 to 01-10-2024 Cullen Dawkins MD - 01/10/2024 12:45 PM ESTPatient InstructionsTelephone Encounter - Aiden Augustin - 12/27/2023 10:12 AM ESTTelephone Encounter - Aiden Augustin - 12/27/2023 10:12 AM ESTAttachments Note Date & Type Note Facility 01-10-2024 History of Present illness Narrative [facility] - ENT [address], [address] [place] [id number] SUBJECTIVE: Patient ID ([id number]): Mary Leal is a 53 y.o. female presents today for No chief complaint on file. HPI: Mary Leal presents to clinic for 1 week post op follow up. She underwent Inspire implantation on 3/22/24. No concerns. HISTORY: Past Medical History: Diagnosis Date ADD (attention deficit disorder) Allergic rhinitis 11/16/2015 Anxiety Asthma Atopic dermatitis 04/09/2020 Basal cell carcinoma (BCC) of chest 04/04/2023 Bipolar disorder (CMS-HCC) Chronic interstitial cystitis 04/06/2023 Chronic sinusitis 07/07/2022 Degenerative disc disease, cervical 05/17/2018 Dental disease missing teeth Depression Dysphagia Gastroparesis 11/24/2021 GERD (gastroesophageal reflux disease) History of 2019 novel coronavirus disease (COVID-19) 09/07/2023 History of pleurisy Hyperlipidemia 04/04/2023 Hypertension Migraine 10/23/2022 MRSA (methicillin resistant Staphylococcus aureus) throat Obesity CHUCKIE (obstructive sleep apnea) 08/29/2023 no machine Primary insomnia 07/07/2020 Rectal bleeding Restless leg syndrome Visual impairment one contact left, glasses Past Surgical History: Procedure Laterality Date APPENDECTOMY ARTHROSCOPIC REPAIR ACL Left CARPAL TUNNEL RELEASE Left COLONOSCOPY COLONOSCOPY with bx's N/A 03/20/2020 Performed by Noman Mayo MD at [facility] ENDOSCOPY EGD, DILATATION N/A 09/25/2020 Performed by Noman Mayo MD at [facility] ENDOSCOPY ENDOSCOPIC DIAGNOSTIC DRUG INDUCED SLEEP Bilateral 09/19/2023 Performed by Cullen Dawkins MD at [facility] FOOT SURGERY 06/25/2020 left foot surgery FOOT SURGERY Right 10/2022 and 05/2023 HYSTERECTOMY 2015 LASER LINGUAL TONISILLECTOMY Circumferential 07/08/2021 Performed by Areli Avila MD PhD at [facility] MRI FOOT LEFT NECK SURGERY 2017 PLANTAR FASCIECTOMY RELEASE PHARYNGEAL SCAR CPT 56309 Circumferential 07/08/2021 Performed by Areli Avila MD PhD at [facility] RESECTION SUBMUCOSAL NASAL Bilateral 02/11/2021 Performed by Areli Avila MD PhD at [facility] ROTATOR CUFF REPAIR Right SEPTOPLASTY Circumferential 02/11/2021 Performed by Areli Avila MD PhD at [facility] TONSILLECTOMY Bilateral 02/11/2021 Performed by Areli Avila MD PhD at [facility] TOTAL COLECTOMY 03/2022 uvuloplasty N/A 02/11/2021 Performed by Areli Avila MD PhD at [facility] Family History Problem Relation Age of Onset Hypertension Mother Dementia Mother Atrial fibrillation Father Heart failure Father Alcohol abuse Sister Drug abuse Sister Liver disease Sister Colon cancer Other Anesthesia problems Neg Hx Social History Socioeconomic History Marital status: Spouse name: Not on file Number of children: Not on file Years of education: Not on file Highest education level: Not on file Occupational History Not on file Tobacco Use Smoking status: Never Smokeless tobacco: Never Vaping Use Vaping Use: Never used Substance and Sexual Activity Alcohol use: Not Currently Drug use: Never Sexual activity: Defer Other Topics Concern Not on file Social History Narrative Not on file Social Determinants of Health Financial Resource Strain: Not on file Food Insecurity: No Food Insecurity (12/20/2023) Hunger Screening Food Insecurity - Worry: Never True Food Insecurity - Inability: Never True Transportation Needs: Not on file Physical Activity: Not on file Stress: Not on file Social Connections: Not on file Interpersonal Safety: Not on file Housing Instability: Not on file Allergies Allergen Reactions Risperidone Other (See Comments) My Boobs Leak Current Outpatient Medications Medication Sig Dispense Refill ARIPiprazole (ABILIFY MAINTENA) 300 mg suspension,extended rel recon Inject 1.5 mL (300 mg total) into the appropriate muscle every 28 days. atenoloL (TENORMIN) 25 mg tablet Take 1 tablet (25 mg total) by mouth in the morning. Indications: high blood pressure. daridorexant 50 mg tablet Take 50 mg by mouth nightly. dexlansoprazole (DEXILANT) 60 mg capsule Take 1 capsule (60 mg total) by mouth in the morning. Indications: gastroesophageal reflux disease. vxolopnsycb-ewinfbiyd-bosstthl (TRELEGY ELLIPTA) 100-62.5-25 mcg blister with device Inhale 1 puff in the morning. 60 each 5 fremanezumab-vfrm (AJOVY AUTOINJECTOR) 225 mg/1.5 mL inject 1 AND 1/2 milliliters subcutaneously every 28 DAYS (Patient taking differently: Inject under the skin. inject 1 AND 1/2 milliliters subcutaneously every 28 DAYS) 1.5 mL 5 lamoTRIgine (LaMICtal) 25 mg tablet Take 1 tablet (25 mg total) by mouth in the morning. rimegepant 75 mg tablet,disintegrating Dissolve 1 tablet on tongue daily as needed (Migraine headache). 12 tablet 4 rOPINIRole (REQUIP) 2 mg tablet Take 1 tablet (2 mg total) by mouth nightly. 1 mg in the morning VYVANSE 30 mg capsule Take 1 capsule (30 mg total) by mouth. Current Facility-Administered Medications Medication Dose Route Frequency Provider Last Rate Last Admin albuterol (PROVENTIL,VENTOLIN) nebulizer solution 2.5 mg 2.5 mg nebulization PRN Gwendolyn Stroud APRN-IMPLEMENTATION PROJECT MANAGER REVIEW OF SYSTEMS: Review of Systems Data Reviewed: PHYSICAL EXAMINATION: Ht 162.6 cm (5' 4 ) Wt 73.7 kg (162 lb 7.7 oz) BMI 27.89 kg/m Constitutional: Healthy, alert, cooperative, and in no distress and normal ablility to communicate . Voice normal quality. Neck:normal, supple, no adenopathy, thyroid normal in size, no nodules or tenderness, no neck masses palpable, and carotids normal; Right upper neck incision line healing nicely, no evidence of infxn Heart: Regular rate Respiration: No stridor, Normal respiratory effort. Neurologic: Grossly normal Alert Oriented X 3 Affect normal Cranial nerves 2 -12 grossly intact Right chest incision line healing nicely, no evidence of infxn ASSESSMENT/PLAN: Mary was seen today for post-op inspire implant . Diagnoses and all orders for this visit: CHUCKIE (obstructive sleep apnea) Incision lines healing nicely No evidence of infection Follow up with Dr. Christensen of sleep medicine for device activation. Please note that parts of this chart were generated using voice recognition M*Modal dictation software. Although every effort was made to ensure the accuracy of this automated superintendent house, some errors in superintendent house may have occurred. Iam Siddiqi 01/10/24 0753 documented in this encounter [employer] 01-10-2024 Instructions Cullen Dawkins MD - 01/10/2024 12:45 PM EST Images from the original note were not included. Based on today's evaluation, I recommend: No further tests or treatment at this time. I recommend that you follow up with me: as needed. I recommend that you sign up for MY CHART so that I can send you test results and communicate other information pertaining to the management of your health care. The instructions to gain access to MY CHART are at the bottom of this summary. If you are not signed up for access to MY CHART and have not received notification of ANY test result within 7 days, please call [phone] to leave a request for your results. During normal business hours, Dr. Dawkins and the other health care providers are treating patients in the office or performing surgery, so this will require a follow up telephone call from a health care provider. If you have not been contacted about your test results, do not assume that your test results are normal. If you need to schedule a test such as a CT scan, Ultrasound, MRI or PET scan, please call [facility] Scheduling at [phone]. If you need to be scheduled for surgery, please call Aiden Augustin Surgery Coordinator at [phone], or Lazara at [phone] or our main number [phone] if you have not received a return call within 2 business days. If you are going to have surgery, please carefully read the Instructions for Discontinuing Medications Before Surgery below. Your health care needs are my primary concern. Please let me know how we can serve you better so that we can improve the quality of care that we provide to you and our other patients. Be well! Instructions for Discontinuing Medications Before Surgery This document lists some common medications and supplements that may need to be discontinued prior to your procedure. Following these instructions may reduce side-effects and complications. It is safe to take Tylenol (acetaminophen), unless your doctor tells you otherwise. Seven (7) days before planned surgery: stop taking Non-Steroidal Anti-Inflammatory Drugs (NSAIDs) and certain herbal and weight loss products. (Note: the medications listed are selective and do not include all medications that affect bleeding.) You may need to stop taking aspirin one week (7 days) before planned surgery Please read below Aspirin (and medications that contain aspirin): Many non-prescription (ugqk-ldy-wlkcldn or OTC) medications contain aspirin. If you are unsure whether a medication you take has aspirin, please ask your pharmacist or your surgeon's office. You must ask your surgical team if they want you to continue taking, or stop taking aspirin before your procedure. Medications containing aspirin that should be stopped 7 days before surgery: Vaibhav Anacin Aspirin Fiorinal Ascriptin Carlos Bufferin Lortab ASA Darvon Ecotrin Excedrin Percodan Midol Pepto-Bismol Talwin Examples of Non-Steroidal Anti-Inflammatory Drugs (NSAIDs) that should be stopped 7 days before surgery: Advil (ibuprofen) Aleve (naproxen) Anaprox (naproxen) Arthrotec (diclofenac) Cataflam (diclofenac) Clinoril (sulindac) Daypro (oxaprozin) Disalcidv (salsalate) Feldene (piroxicam) Haltran (ibuprofen) Lodine (etodolac) Medipren (ibuprofen) Midol (ibuprofen) Motrin (ibuprofen) Nalfon (fenoprofen) Naprelan (naproxen) Naprosyn (naproxen) Nuprin (ibuprofen) Orudis (ketoprofen) Relafen (nabumetone) Tolectin (tolmetin) Trilisate (salicylate) Voltaren (diclofenac) Examples of weight-loss products and nutritional or herbal supplements that should be stopped 7 days before surgery: Alpha-lipoic acid Acetyl- l-carnitine Cinnamon Chamomile Creatine Echinacea Ephedra Fish Oil Garlic Dilma Gingko biloba Ginseng Glucosamine- Chondroitin Glutamine Goldenseal L-carnosine Licorice Kava kava Milk thistle Multivitamin [place]-3 Resveratrol Skullcap Michael's wort Vitamin E Adipex (phentermine) Glenn (orlistat) Hydroxycut Garcinia Cambogia Raspberry Ketones Pdstiqci-L-74 should be stopped 14 days before surgery You will receive specific instructions regarding your insulin and anti-coagulant/anti-platelet medications (if applicable). documented in this encounter [facility] 12-27-2023 Miscellaneous Notes PATIENT NOTIFIED WITH SURGERY TIME OF 11:00. TOLD TO ARRIVE 2 HOURS PRIOR. documented in this encounter [facility] 12-27-2023 Telephone encounter Note PATIENT NOTIFIED WITH SURGERY TIME OF 11:00. TOLD TO ARRIVE 2 HOURS PRIOR. [facility] 12-25-2023 Miscellaneous Notes See MC message A message has been routed to the provider Closing Stacie Gonzalez RN Reason for call: other - Provider name: Dr Wang Additional comments: patient will have inspire inserted for sleep apena. She is also having surgery for bladder stem, she would like to know can she have both inserted into her body? Recommendation: routed to nurse triage pool Last visit in this department: Visit date not found Last distance health visit in this department: 10/25/2021 Assistant Editor, Nurse Next visit in this department: 01/25/2024 documented in this encounter [facility] 12-20-2023 History and physical note PRE-ADMISSION TESTING HISTORY AND PHYSICAL EXAM DATE: 12/20/23 PCP: ELICEO GÓMEZ JR, DO CHIEF COMPLAINT: CHUCKIE (obstructive sleep apnea) HISTORY OF PRESENT ILLNESS: Mary Leal, a 53 y.o. White or female, presents to [facility] for a pre-surgical H&P for a planned insertion of hypoglossal nerve stimulator. She complains of CHUCKIE. She states she was diagnosed about 5 years ago. She has been unable to tolerate the Cpap. PAST MEDICAL HISTORY: Past Medical History: Diagnosis Date ADD (attention deficit disorder) Allergic rhinitis 11/16/2015 Anxiety Asthma Atopic dermatitis 04/09/2020 Basal cell carcinoma (BCC) of chest 04/04/2023 Bipolar disorder (CMS-HCC) Chronic interstitial cystitis 04/06/2023 Chronic sinusitis 07/07/2022 Degenerative disc disease, cervical 05/17/2018 Dental disease missing teeth Depression Dysphagia Gastroparesis 11/24/2021 GERD (gastroesophageal reflux disease) History of 2019 novel coronavirus disease (COVID-19) 09/07/2023 History of pleurisy Hyperlipidemia 04/04/2023 Hypertension Migraine 10/23/2022 MRSA (methicillin resistant Staphylococcus aureus) throat Obesity CHUCKIE (obstructive sleep apnea) 08/29/2023 no machine Primary insomnia 07/07/2020 Rectal bleeding Restless leg syndrome Visual impairment one contact left, glasses PAST SURGICAL HISTORY: Past Surgical History: Procedure Laterality Date APPENDECTOMY ARTHROSCOPIC REPAIR ACL Left CARPAL TUNNEL RELEASE Left COLONOSCOPY COLONOSCOPY with bx's N/A 03/20/2020 Performed by Noman Mayo MD at [facility] END[facility]COPY EGD, DILATATION N/A 09/25/2020 Performed by Noman Mayo MD at [facility]COPY ENDOSCOPIC DIAGNOSTIC DRUG INDUCED SLEEP Bilateral 09/19/2023 Performed by Cullen Dawkins MD at [facility] FOOT SURGERY 06/25/2020 left foot surgery FOOT SURGERY Right 10/2022 and 05/2023 HYSTERECTOMY 2015 LASER LINGUAL TONISILLECTOMY Circumferential 07/08/2021 Performed by Areli Avila MD PhD at [facility] MRI FOOT LEFT NECK SURGERY 2017 PLANTAR FASCIECTOMY RELEASE PHARYNGEAL SCAR CPT 83541 Circumferential 07/08/2021 Performed by Areli Avila MD PhD at [facility] RESECTION SUBMUCOSAL NASAL Bilateral 02/11/2021 Performed by Areli Avila MD PhD at [facility] ROTATOR CUFF REPAIR Right SEPTOPLASTY Circumferential 02/11/2021 Performed by Areli Avila MD PhD at [facility] TONSILLECTOMY Bilateral 02/11/2021 Performed by Areli Avila MD PhD at [facility] TOTAL COLECTOMY 03/2022 uvuloplasty N/A 02/11/2021 Performed by Areli Avila MD PhD at [facility] FAMILY HISTORY: Family History Problem Relation Age of Onset Hypertension Mother Dementia Mother Atrial fibrillation Father Colon cancer Other Anesthesia problems Neg Hx SOCIAL HISTORY: The patient reports that she does not currently use alcohol. She reports that she has never smoked. She has never used smokeless tobacco. She reports no history of drug use. ALLERGIES: Allergies Allergen Reactions Risperidone Other (See Comments) My Boobs Leak MEDICATIONS: Current Outpatient Medications: ARIPiprazole (ABILIFY MAINTENA) 300 mg suspension,extended rel recon, Inject 1.5 mL (300 mg total) into the appropriate muscle every 28 days., Disp: , Rfl: atenoloL (TENORMIN) 25 mg tablet, Take 1 tablet (25 mg total) by mouth in the morning. Indications: high blood pressure., Disp: , Rfl: celecoxib (CeleBREX) 200 mg capsule, Take 1 capsule (200 mg total) by mouth in the morning and 1 capsule (200 mg total) before bedtime., Disp: , Rfl: cloNIDine (CATAPRES-TTS) 0.1 mg/24 hr, Place 1 patch on the skin once a week. New patch on Monday, Disp: , Rfl: daridorexant 50 mg tablet, Take 50 mg by mouth nightly., Disp: , Rfl: dexlansoprazole (DEXILANT) 60 mg capsule, Take 1 capsule (60 mg total) by mouth in the morning. Indications: gastroesophageal reflux disease., Disp: , Rfl: bglakgizqim-rumwvnqrs-ysdescxs (TRELEGY ELLIPTA) 100-62.5-25 mcg blister with device, Inhale 1 puff in the morning., Disp: 60 each, Rfl: 5 fremanezumab-vfrm (UnioncyOVAugure AUTOINJECTOR) 225 mg/1.5 mL, inject 1 AND 1/2 milliliters subcutaneously every 28 DAYS (Patient taking differently: Inject under the skin. inject 1 AND 1/2 milliliters subcutaneously every 28 DAYS), Disp: 1.5 mL, Rfl: 5 lamoTRIgine (LaMICtal) 25 mg tablet, Take 1 tablet (25 mg total) by mouth in the morning., Disp: , Rfl: rimegepant 75 mg tablet,disintegrating, Dissolve 1 tablet on tongue daily as needed (Migraine headache)., Disp: 12 tablet, Rfl: 4 rOPINIRole (REQUIP) 2 mg tablet, Take 1 tablet (2 mg total) by mouth nightly. 1 mg in the morning, Disp: , Rfl: VYVANSE 30 mg capsule, Take 1 capsule (30 mg total) by mouth., Disp: , Rfl: Current Facility-Administered Medications: albuterol (PROVENTIL,VENTOLIN) nebulizer solution 2.5 mg, 2.5 mg, nebulization, PRN, Gwendolyn Stroud, INSTRUCTIONAL AIDE-IMPLEMENTATION PROJECT MANAGER REVIEW OF SYSTEMS: Review of Systems Constitutional: Negative. Negative for activity change and appetite change. HENT: Negative for congestion, ear discharge, ear pain, sore throat and trouble swallowing. Eyes: Positive for visual disturbance (contact/glasses). Negative for pain and discharge. Respiratory: Positive for apnea. Negative for cough, shortness of breath, wheezing and stridor. Cardiovascular: Negative for chest pain and palpitations. Gastrointestinal: Negative for nausea, vomiting, abdominal pain, diarrhea and abdominal distention. Endocrine: Negative. Genitourinary: Negative for dysuria, urgency and flank pain. Musculoskeletal: Positive for arthralgias. Negative for myalgias and joint swelling. Skin: Negative for rash and wound. Allergic/Immunologic: Negative. Neurological: Positive for headaches. Negative for dizziness, seizures, syncope and light-headedness. Psychiatric/Behavioral: Negative for agitation. The patient is nervous/anxious. VITAL SIGNS: BP 138/90 Pulse 72 Temp 36.8 C (98.2 F) (Skin) Resp 18 Ht 162.6 cm (5' 4 ) Wt 75 kg (165 lb 5.5 oz) SpO2 96% BMI 28.38 kg/m PHYSICAL EXAM: Physical Exam Vitals reviewed. Constitutional: General: She is not in acute distress. Appearance: Normal appearance. She is well-developed and overweight. She is not ill-appearing or toxic-appearing. HENT: Head: Normocephalic. Eyes: General: Lids are normal. Conjunctiva/sclera: Conjunctivae normal. Cardiovascular: Rate and Rhythm: Normal rate and regular rhythm. Pulses: Normal pulses. Radial pulses are 2+ on the right side and 2+ on the left side. Posterior tibial pulses are 2+ on the right side and 2+ on the left side. Heart sounds: Normal heart sounds, S1 normal and S2 normal. No murmur heard. Pulmonary: Effort: Pulmonary effort is normal. No respiratory distress. Breath sounds: Normal breath sounds. Abdominal: General: Bowel sounds are normal. Palpations: Abdomen is soft. Tenderness: There is no abdominal tenderness. Musculoskeletal: Right lower leg: No edema. Left lower leg: No edema. Skin: General: Skin is warm and dry. Neurological: Mental Status: She is alert and oriented to person, place, and time. Psychiatric: Behavior: Behavior is cooperative. RECENT LABS: Lab Results Component Value Date WBC 13.4 (H) 02/12/2021 HGB 14.1 02/12/2021 HCT 42.8 02/12/2021 PLT 405 02/12/2021 SODIUM 141 06/25/2021 K 4.0 06/25/2021 CL 106 06/25/2021 CO2 27 06/25/2021 CALCIUM 9.1 06/25/2021 ALKPHOS 93 01/21/2021 ALBUMIN 4.2 01/21/2021 GLU 90 06/25/2021 ALT 45 (H) 01/21/2021 AST 32 01/21/2021 CREATININE 0.76 06/25/2021 BUN 13 06/25/2021 GFR >60 06/25/2021 GFR >60 06/25/2021 *Please note that labs listed above are the most recent lab values available in [facility] at the time of the office visit and additional labs may have been drawn since that time. ASSESSMENT / DIAGNOSIS: CHUCKIE (obstructive sleep apnea) PLAN: Mary Leal is scheduled for Insertion Stimulator Nerve Hypoglossal - Right with Dr. Dawkins on 01/02/2024. STELLA Duron 12/20/23 1240 [facility] 12-20-2023 History and physical note PRE-ADMISSION TESTING HISTORY AND PHYSICAL EXAM DATE: 12/20/23 PCP: ELICEO GÓMEZ JR, DO CHIEF COMPLAINT: CHUCKIE (obstructive sleep apnea) HISTORY OF PRESENT ILLNESS: Mary Leal, a 53 y.o. White or female, presents to [facility] for a pre-surgical H&P for a planned insertion of hypoglossal nerve stimulator. She complains of CHUCKIE. She states she was diagnosed about 5 years ago. She has been unable to tolerate the Cpap. PAST MEDICAL HISTORY: Past Medical History: Diagnosis Date ADD (attention deficit disorder) Allergic rhinitis 11/16/2015 Anxiety Asthma Atopic dermatitis 04/09/2020 Basal cell carcinoma (BCC) of chest 04/04/2023 Bipolar disorder (CMS-HCC) Chronic interstitial cystitis 04/06/2023 Chronic sinusitis 07/07/2022 Degenerative disc disease, cervical 05/17/2018 Dental disease missing teeth Depression Dysphagia Gastroparesis 11/24/2021 GERD (gastroesophageal reflux disease) History of 2019 novel coronavirus disease (COVID-19) 09/07/2023 History of pleurisy Hyperlipidemia 04/04/2023 Hypertension Migraine 10/23/2022 MRSA (methicillin resistant Staphylococcus aureus) throat Obesity CHUCKIE (obstructive sleep apnea) 08/29/2023 no machine Primary insomnia 07/07/2020 Rectal bleeding Restless leg syndrome Visual impairment one contact left, glasses PAST SURGICAL HISTORY: Past Surgical History: Procedure Laterality Date APPENDECTOMY ARTHROSCOPIC REPAIR ACL Left CARPAL TUNNEL RELEASE Left COLONOSCOPY COLONOSCOPY with bx's N/A 03/20/2020 Performed by Noman Mayo MD at [facility] EGD, DILATATION N/A 09/25/2020 Performed by Noman Mayo MD at [facility] ENDOSCOPIC DIAGNOSTIC DRUG INDUCED SLEEP Bilateral 09/19/2023 Performed by Cullen Dawkins MD at [facility] FOOT SURGERY 06/25/2020 left foot surgery FOOT SURGERY Right 10/2022 and 05/2023 HYSTERECTOMY 2015 LASER LINGUAL TONISILLECTOMY Circumferential 07/08/2021 Performed by Areli Avila MD PhD at [facility] MRI FOOT LEFT NECK SURGERY 2017 PLANTAR FASCIECTOMY RELEASE PHARYNGEAL SCAR CPT 32973 Circumferential 07/08/2021 Performed by Areli Avila MD PhD at [facility] RESECTION SUBMUCOSAL NASAL Bilateral 02/11/2021 Performed by Areli Avila MD PhD at [facility] ROTATOR CUFF REPAIR Right SEPTOPLASTY Circumferential 02/11/2021 Performed by Areli Avila MD PhD at [facility] TONSILLECTOMY Bilateral 02/11/2021 Performed by Areli Avila MD PhD at [facility] TOTAL COLECTOMY 03/2022 uvuloplasty N/A 02/11/2021 Performed by Areli Avila MD PhD at [facility] FAMILY HISTORY: Family History Problem Relation Age of Onset Hypertension Mother Dementia Mother Atrial fibrillation Father Colon cancer Other Anesthesia problems Neg Hx SOCIAL HISTORY: The patient reports that she does not currently use alcohol. She reports that she has never smoked. She has never used smokeless tobacco. She reports no history of drug use. ALLERGIES: Allergies Allergen Reactions Risperidone Other (See Comments) My Boobs Leak MEDICATIONS: Current Outpatient Medications: ARIPiprazole (ABILIFY MAINTENA) 300 mg suspension,extended rel recon, Inject 1.5 mL (300 mg total) into the appropriate muscle every 28 days., Disp: , Rfl: atenoloL (TENORMIN) 25 mg tablet, Take 1 tablet (25 mg total) by mouth in the morning. Indications: high blood pressure., Disp: , Rfl: celecoxib (CeleBREX) 200 mg capsule, Take 1 capsule (200 mg total) by mouth in the morning and 1 capsule (200 mg total) before bedtime., Disp: , Rfl: cloNIDine (CATAPRES-TTS) 0.1 mg/24 hr, Place 1 patch on the skin once a week. New patch on Monday, Disp: , Rfl: daridorexant 50 mg tablet, Take 50 mg by mouth nightly., Disp: , Rfl: dexlansoprazole (DEXILANT) 60 mg capsule, Take 1 capsule (60 mg total) by mouth in the morning. Indications: gastroesophageal reflux disease., Disp: , Rfl: raimgqfevnk-ydpxqzudd-bvaxiqpq (TRELEGY ELLIPTA) 100-62.5-25 mcg blister with device, Inhale 1 puff in the morning., Disp: 60 each, Rfl: 5 fremanezumab-vfrm (UnioncyOVY AUTOINJECTOR) 225 mg/1.5 mL, inject 1 AND 1/2 milliliters subcutaneously every 28 DAYS (Patient taking differently: Inject under the skin. inject 1 AND 1/2 milliliters subcutaneously every 28 DAYS), Disp: 1.5 mL, Rfl: 5 lamoTRIgine (LaMICtal) 25 mg tablet, Take 1 tablet (25 mg total) by mouth in the morning., Disp: , Rfl: rimegepant 75 mg tablet,disintegrating, Dissolve 1 tablet on tongue daily as needed (Migraine headache)., Disp: 12 tablet, Rfl: 4 rOPINIRole (REQUIP) 2 mg tablet, Take 1 tablet (2 mg total) by mouth nightly. 1 mg in the morning, Disp: , Rfl: VYVANSE 30 mg capsule, Take 1 capsule (30 mg total) by mouth., Disp: , Rfl: Current Facility-Administered Medications: albuterol (PROVENTIL,VENTOLIN) nebulizer solution 2.5 mg, 2.5 mg, nebulization, PRN, Gwendolyn Stroud, INSTRUCTIONAL AIDE-IMPLEMENTATION PROJECT MANAGER REVIEW OF SYSTEMS: Review of Systems Constitutional: Negative. Negative for activity change and appetite change. HENT: Negative for congestion, ear discharge, ear pain, sore throat and trouble swallowing. Eyes: Positive for visual disturbance (contact/glasses). Negative for pain and discharge. Respiratory: Positive for apnea. Negative for cough, shortness of breath, wheezing and stridor. Cardiovascular: Negative for chest pain and palpitations. Gastrointestinal: Negative for nausea, vomiting, abdominal pain, diarrhea and abdominal distention. Endocrine: Negative. Genitourinary: Negative for dysuria, urgency and flank pain. Musculoskeletal: Positive for arthralgias. Negative for myalgias and joint swelling. Skin: Negative for rash and wound. Allergic/Immunologic: Negative. Neurological: Positive for headaches. Negative for dizziness, seizures, syncope and light-headedness. Psychiatric/Behavioral: Negative for agitation. The patient is nervous/anxious. VITAL SIGNS: BP 138/90 Pulse 72 Temp 36.8 C (98.2 F) (Skin) Resp 18 Ht 162.6 cm (5' 4 ) Wt 75 kg (165 lb 5.5 oz) SpO2 96% BMI 28.38 kg/m PHYSICAL EXAM: Physical Exam Vitals reviewed. Constitutional: General: She is not in acute distress. Appearance: Normal appearance. She is well-developed and overweight. She is not ill-appearing or toxic-appearing. HENT: Head: Normocephalic. Eyes: General: Lids are normal. Conjunctiva/sclera: Conjunctivae normal. Cardiovascular: Rate and Rhythm: Normal rate and regular rhythm. Pulses: Normal pulses. Radial pulses are 2+ on the right side and 2+ on the left side. Posterior tibial pulses are 2+ on the right side and 2+ on the left side. Heart sounds: Normal heart sounds, S1 normal and S2 normal. No murmur heard. Pulmonary: Effort: Pulmonary effort is normal. No respiratory distress. Breath sounds: Normal breath sounds. Abdominal: General: Bowel sounds are normal. Palpations: Abdomen is soft. Tenderness: There is no abdominal tenderness. Musculoskeletal: Right lower leg: No edema. Left lower leg: No edema. Skin: General: Skin is warm and dry. Neurological: Mental Status: She is alert and oriented to person, place, and time. Psychiatric: Behavior: Behavior is cooperative. RECENT LABS: Lab Results Component Value Date WBC 13.4 (H) 02/12/2021 HGB 14.1 02/12/2021 HCT 42.8 02/12/2021 PLT 405 02/12/2021 SODIUM 141 06/25/2021 K 4.0 06/25/2021 CL 106 06/25/2021 CO2 27 06/25/2021 CALCIUM 9.1 06/25/2021 ALKPHOS 93 01/21/2021 ALBUMIN 4.2 01/21/2021 GLU 90 06/25/2021 ALT 45 (H) 01/21/2021 AST 32 01/21/2021 CREATININE 0.76 06/25/2021 BUN 13 06/25/2021 GFR >60 06/25/2021 GFR >60 06/25/2021 *Please note that labs listed above are the most recent lab values available in [facility] at the time of the office visit and additional labs may have been drawn since that time. ASSESSMENT / DIAGNOSIS: CHUCKIE (obstructive sleep apnea) PLAN: Mary Leal is scheduled for Insertion Stimulator Nerve Hypoglossal - Right with Dr. Dawkins on 01/02/2024. STELLA Duron 12/20/23 1240 documented in this encounter [facility] 12-20-2023 Instructions Earlene Whalen RN - 12/20/2023 11:45 AM EST Your surgery/procedure is scheduled at [place] on 01/02/2024 Arrival Time Surgeon will call [facility] Address: [address] [place] [address], [id number] Park in the Emergency Center Parking lot. Report to the front office spec in the Emergency/Surgery Registration lobby of the hospital. Please call Pre-Admission Clinic at [phone] if you have any questions prior to surgery. For questions the morning of surgery, please call the Pre-op Department at [phone]. Notify your SURGEON if you develop any illness such as a cold, cough, fever, sore throat, vomiting or are hospitalized between now and your surgery. CONTINUE TO TAKE YOUR MEDICATIONS PRESCRIBED. DO NOT STOP YOUR PRESCRIBED MEDICATIONS UNLESS DIRECTED BY YOUR PRESCRIBING PHYSICIAN Take the following medications the morning of surgery with a sip of water: Atenolol, Lamotrigine, Ropinirole Weight loss medications: None Take inhalers as prescribed the morning of surgery. . Blood thinners: Medications such as Coumadin, Heparin, Aspirin, Plavix, Eliquis, Pradaxa) Please contact your physician regarding a stop/hold date for these medications. Diabetics: If you take insulin, contact your prescribing doctor for instructions on how to manage this the night before and the morning of surgery. Non-steriodal Anti-Inflammatory Drugs (NSAIDS)- Stop 3 days prior to surgery unless otherwise directed by your surgeon. Vitamins/Herbal Products: You may continue to take your prescribed vitamins such as potassium, iron, vitamin B, vitamin C, or multivitamin unless specifically instructed by your surgeon to stop. STOP taking all herbal products/teas one week prior to your surgery. Marijuana: Stop marijuana 72 hours prior to surgery, stop CBD oil 48 hours prior to surgery. If you have been given bowel prep instructions by your surgeon, please call the surgeon's office with any questions about these instructions. What do I do the day of Surgery? Age 2 through adult - Stop all solids by midnight, You may have clear liquids up to 2 hours before surgery, unless otherwise instructed by your surgeon Clear liquids are: water, sports drinks such as Gatorade or G2, or apple juice. You may NOT have: tube feedings, dairy products, alcoholic beverages, orange juice, or any liquids with solids or pulp in it If applicable, shower again with CHG soap the morning of your surgery. If you received a green plastic bracelet, bring it with you the day of surgery and your nurse will put it on you. What do I need to do to prepare for surgery? If you will be going home the same day as your surgery, arrange for an adult over [address] Riding in a bus or taxi by yourself is not permitted. You should not smoke or drink alcohol 24 hours before your surgery. Smoking increases the risk of breathing problems after surgery. Alcohol thins the blood and may cause bleeding problems during surgery If you have been assigned DENISA Education by your surgeon's office, please complete this education prior to your surgery. For questions regarding DENISA education, reach out to your surgeons office. If you have been given a prescription for occupational, physical or speech therapy, please set up these appointments before your procedure. If you would like to schedule therapy at a [facility] facility, please call [phone] ([phone]). Do not use lotions, creams, powders, perfume, make up, cologne or after-shaves day of surgery. Remove ALL jewelry including wedding rings, body piercings, hair extensions that contain metal, nail beninese, make-up, and contact lens. You may brush your teeth the morning of surgery, but do not swallow the water. Wear your dentures and partial plates to the hospital (no adhesive). Shower the night the before. If applicable, use the CHG (chlorhexidine gluconate) soap or wipes. Please be advised, [facility] has transitioned to a cashless payment system. What should I bring to the hospital? If you received a green plastic bracelet, bring it with you the day of surgery and your nurse will put it on you. Eyeglass or contact lens case If you will be spending the night, please bring personal care items and leave them in the car until you are taken to your room after surgery. Leave ALL valuables at home. If any of these instructions conflict with those you recieved from the surgeon, please seek clarification from your surgeon's office. DEEP BREATHING EXERCISES This exercise helps promote good air exchange and helps to prevent pneumonia after surgery. Breathe in slowly and deeply through the nose. Hold your breath for a few seconds and then exhale slowly through the mouth. Repeat this three times and then cough.Coughing helps to clear your lungs. If you have had a surgery with an incision into your abdomen or chest, press gently against your incision with a pillow or a folded blanket when you cough. Please be aware - it may not be fraser to cough following some types of surgeries involving the eyes, ears, sinuses and throat. Always follow your doctor's instructions. LEG EXERCISES These exercises help promote good circulation and help to prevent blood clots after surgery. Point your toes to the ceiling and then point them to the wall. Do this slowly about 15-20 times. You may also move your feet in circles. Do the exercise that is most comfortable for you. If you have had surgery involving your shoulder or arm, we recommend you move your fingers. PRACTICING We ask that you begin practicing these exercises before your surgery. After surgery try to do both exercises at least every 2 hours during the day and early evening. SURGICAL SITE INFECTION AND PREVENTION What is a Surgical Site Infection? Infection can happen to the area of the body where surgery is done. This is called a surgical site infection (SSI). A SSI does not happen very often. Can SSIs be treated? Antibiotics are used to treat SSI. Some patients may need another surgery to treat the infection. The doctor will discuss treatment options with you. What are some of the things that hospitals are doing to prevent SSIs? Soap and water or alcohol hand rub are used before and after caring for each patient. Special soap is used to clean surgery workers hands and arms just before the surgery. Masks, gowns, gloves and hair covers are worn during the surgery to keep the area clean. Hair in the surgery area may be removed with clippers (not razors). A special soap that kills germs is used to clean the skin at the surgery site. Antibiotics may be given before the surgery starts. What can you do to prevent SSIs? Before surgery: You may be asked to shower or bathe with a special soap that kills germs the night before and the day of surgery. Use the soap as you were told. If you smoke, stop or cut down. Ask your doctor about ways to quit. Do not shave near where you will have surgery. Shaving can irritate the skin and make it easier to get and infection. After surgery: Be sure that the doctors and nurses clean their hands before and after touching you. Be sure your family and friends clean their hands before and after visiting you. Do not be afraid to remind them. * Care for your wound at home as told by your doctor or nurse * Call your doctor right away if you have fever, redness, increased pain, or drainage at the surgery site. Further questions? Contact the doctor, nurse or the Infection Prevention and Control department if you have any questions. PATIENT RIGHTS AND RESPONSIBILITIES As a patient at [facility], you have the right to: Receive medical care and be informed of who is taking care of you Be treated with dignity and respect Have a family member/cordage sales representative of choice and your physician notified of your admission Receive information and actively participate in decisions about your care and treatment Refuse care, treatment and services Decide who may provide your support and speak for you Access sabianism and spiritual services Participate in ethical issues and questions about your care Receive private and confidential care Have appropriate assessment and management of your pain Know guest visitation restrictions or limitations Have an advance directive Access protective services Consent or refuse to participate in research studies or production or recordings, films or other images Have resolution of your complaints Receive information of hospital charges and payment methods Patient/patient cordage sales representative responsibilities are to: Provide information about health status to facilitate care, treatment and services Follow the treatment, plan, keep appointments and speak up when you do not understand the plan Respect the rights of other patients and healthcare personnel Follow organizational rules and regulations that support quality care and a safe environment Fulfill financial obligations as promptly as possible Bathing Before Surgery- Patients greater than 2 months of age You can help to lower your chance of infection at the site of your surgery by showering or bathing with a special soap called chlorhexidine gluconate (CHG). Germs live on your skin. This special soap will help lower the amount of germs so they do not get into your surgery site. Special points to know: Do not use this soap if you know that you are allergic to CHG. Shower or bathe with CHG the night before and the morning of surgery. Do not shave the area of your body where the surgery will be done within 7 days of surgery. The CHG may make your skin a little dry, but do not use lotion. Steps for Bathing: Wash your hair as usual with your normal shampoo. Rinse your hair and body well after you shampoo to get rid all of the shampoo. Wash gently with the CHG from the neck down, but do not scrub the skin to hard. Be sure to wash the area of your surgery very well. If showering, turn the water off while washing and then turn the water back onto rinse. Do not get CHG in the genital (private) area. Do not get CHG in the eyes, ears, nose or mouth. (If the soap gets into the eyes, flush them immediately with water). Do not wash with regular soap after CHG is used. Pat skin dry with a soft, clean towel. Patient should sleep in freshly laundered night clothes and report for surgery in clean clothes. documented in this encounter [facility] 11-21-2023 Note HNO ID: [id number] Author: PAM WANG MD Service: ? Author [...] personal performance and is accurate and complete. [facility] 11-08-2023 Miscellaneous Notes NURTEC PENDING WITH TEJADA [id number] documented in this encounter [facility] 11-08-2023 Telephone encounter Note NURTEC PENDING WITH TEJADA [id number] [facility] 10-12-2023 Note Patient emailed stat ing she is finding another provider and will no longer be seen at this clinic. [facility] 10-12-2023 Note HNO ID: [id number] Author: Pam Wang MD Service: ? Author [...] Video-assisted cystourethroscopy was performed using a 19 Sami 70 and 30 degree rigid cystoscope with [...] urethra PLAN: See progress note from today [facility] 10-10-2023 Note HNO ID: [id number] Author: Pam Wang MD Service: ? Author [...] PFSH obtained by others. Pam Wang MD 4Th Grade Teacher offered: Patient declines. OBJECTIVE: BP 102/60 General: [...] would like to move forward with PNE. Ultora packet given to patient today to review. [...] which included preparing to see the patient, surv-[id number]-lque patient care, completing clinical documentation, obtaining and/or reviewing separately obtained history, performing a medically appropriate examination, counseling and educating the patient/family/caregiver, and communicating with other HCP (more content not included)... [facility] 10-02-2023 Miscellaneous Notes Patient was called to find out if there was another pharmacy to send her medication for Diflucan. Patient stated to disregard this medication. Patient stated that she does not need this medication now and that she will be visiting her PCP tomorrow (10/03/23) to address her sickness that she had before going to [place]. She states that she was going to [...] 150 MG TABLET MEREDITH: 09/27/2023 Doris Arias APRN.[facility] ([facility]) ASSESSMENT: Mary Leal is a [...] Dr. Pam Wang documented in this encounter [facility] 09-27-2023 Note HNO ID: [id number] Author: Doris Arias APRN.KWESI Service: ? Author Type: Nurse Practitioner [...] ache and some malodorous urine. Patient in [place], unable to come in for visit. 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 Urogynecology [facility] Main provided: Pam Wang Staff Physician, Department of Urogynecology and Pelvic Floor Disorders Worsening frequency and urgency of urination. Is a urine culture indicated? Please review/advise Lex Vieyra RN documented in this encounter [facility] 09-19-2023 Note Patient states she m istook this medication and has been off for 7 days. Restarting it at the 25mg dose. [facility] 09-11-2023 Note HNO ID: [id number] Author: Jairon Lai MD Service: ? Author Type: Physician Type: Progress Notes Filed: 09/11/2023 1:18 PM Note Text: [facility] [...] to void lower flow Jairon Lai MD [facility] 09-11-2023 Note HNO ID: [id number] Author: Phil Beckford MD Service: ? Author [...] from sling incision +/- discussion of SNM [facility] 09-01-2023 Note Spoke with patient. Canceling valium script. Increasing ativan dose to bid with current bottle for mgmt of anxiety. Appoitment on Saturday 09/08 - she will bring in ativan to count tablets. She states she has 20 left as of today. She should have 4 left at that appointment. 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 [facility] 08-23-2023 Note Psych Progress Note Time In: 925 Time Out: 940 HPI Present at Visit: Mary, provider, CAR WORKER student Location of Service: Office Review of Systems Constitutional: Negative. Respiratory: Negative. Cardiovascular: Negative. Psychiatric/Behavioral: dysphoric mood, irritability, insomnia Date of Telehealth Visit: 08/23/23 Chief Complaint Patient presents with Telehealth Audio/video Visit [email or web address] The patient was notified that using 3rd green party telecommunication application (e.g., Coolture) is not HIPPA compliant and may carry some privacy risks. Yes The visit was conducted bwmf-mx-qwiy with the use of audio and video [...] Wear CPAP/ Insp (more content not included)... [facility] 08-21-2023 Note Est [facility] 08-12-2023 Emergency department Note Discharge, follow up, referral, and prescription information reviewed and explained; all questions and concerns addressed. Patient A/Ox3 in NAD, resp. easy unlabored upon discharge, escorted to exit by staff. [facility] 08-12-2023 Emergency department Note Discharge, [...] gastroparesis, gastroenteritis, acute cholecystitis, pancreatitis, less likely UT The patient's initial and delta troponin are negative. EKG does not demonstrate any ischemic changes. Low suspicion for UT. Her urinalysis is negative for UTI. Urine [...] follow-up. She was instructed to call her manufacturing planner and PCP to schedule follow-up appointments. She was instructed to return to the emergency department if she has any new or worsening symptoms. Patient agreeable plan of care. Return precautions discussed at bedside. Spoke with Dr. Salmon regarding patient. Physician to complete their own physical exam and evaluation. Collaboration performed between this NURSERY MANAGER and physician regarding patient's plan of care. [...] orders were created for panel order [place] Draw. Procedure Abnormality Status --------- ------ Gold Top[[id number]] Final result LIGHT BLUE TOP[[id number]] Final result Dark Green Top[[id number]] Final result Please view results for these [...] PWD. NAD noted. documented in this encounter [facility] 08-12-2023 Hospital Discharge instructions Lev [...] cannot be sent through Care Everywhere.Abdominal Pain (Solomon Islander Estonian)documented in this encounter [facility] 08-12-2023 Emergency department Note Report to Les GAMBINO [facility] 08-12-2023 Physician Emergency department Note [...] gastroparesis, gastroenteritis, acute cholecystitis, pancreatitis, less likely UT The patient's initial and delta troponin are negative. EKG does not demonstrate any ischemic changes. Low suspicion for UT. Her urinalysis is negative for UTI. Urine [...] follow-up. She was instructed to call her manufacturing planner and PCP to schedule follow-up appointments. She was instructed to return to the emergency department if she has any new or worsening symptoms. Patient agreeable plan of care. Return precautions discussed at bedside. Spoke with Dr. Salmon regarding patient. Physician to complete their own physical exam and evaluation. Collaboration performed between this NURSERY MANAGER and physician regarding patient's plan of care. [...] orders were created for panel order [place] Draw. Procedure Abnormality Status --------- ------ Gold Top[[id number]] Final result LIGHT BLUE TOP[[id number]] Final result Dark Green Top[[id number]] Final result Please view results for these tests on the individual orders. GOLD TOP LIGHT BLUE TOP DARK GREEN TOP TROPONIN I Records reviewed: Urogynecology telemedicine visit 08/07/2023 ENT visit 07/11/2023 Family medicine visit 07/06/2023 Lev Ritter APRN CNP 08/12/23722 [facility] 08-12-2023 Emergency department Note Emily at bedside [facility] 08-12-2023 Emergency department Triage note Ambulates to triage with C/O sudden epigastric gnawing, burning pain that woke her from sleep. Also reports wheezing. States nausea. Denies fever. Alert. Respirations easy and unlabored. Skin PWD. NAD noted. [facility] 08-07-2023 Note HNO ID: [id number] Author: Pam Wang MD Service: ? Author [...] no Pain: no Abnormal Vaginal Discharge: no STAND UP FORKLIFT OPERATOR 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 She has no history of an abnormal mammogram with cysts on US LMP: No LMP recorded. Patient has had a hysterectomy.; Menopause 3 years ago; hysterectomy in 2015: Menstrual history: NA; Deliveries: I have confirmed and edited as necessary, the PFSH obtained by others. Pam Wang MD 4Th Grade Teacher offered: Patient declines. OBJECTIVE (Virtual) There were [...] which included preparing to see the patient, bjfx-ro-gjhi patient care, completing clinical documentation, obtaining and/or reviewing separately obtained history, counseling and educating the patient/family/caregiver, ordering medications, tests, or procedures, and communicating with other HCPs (not separately reported). Pam Wang MD [facility] 07-31-2023 Note HNO ID: [id number] Author: Nelsy Chávez APRN.IMPLEMENTATION PROJECT MANAGER Service: ? Author Type: Nurse Practitioner Type: [...] new Pain: no Abnormal Vaginal Discharge: no STAND UP FORKLIFT OPERATOR 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 She has no history of an abnormal mammogram with cysts on US LMP: No LMP recorded. Patient has had a hysterectomy.; Menopause 3 years ago; hysterectomy in 2015: Menstrual history: NA; Deliveries: I have confirmed and edited as necessary, the PFSH obtained by others. Nelsy Chávez APRN.IMPLEMENTATION PROJECT MANAGER 4Th Grade Teacher offered: Patient declines. OBJECTIVE: There were no [...] re-eval bladder function, and FU with Dr. Wnag to discuss results + next steps. Of [...] which included preparing to see the patient, jfyc-hw-mrsi patient care, completing clinical documentation, performing a medically appropriate examination, counseling and educating the patient/family/caregiver and ordering medications, tests, or procedures. 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 She has no history of an abnormal mammogram with cysts on US LMP: No LMP recorded. Patient has had a hysterectomy.; Menopause 3 years ago; hysterectomy in 2015: Menstrual history: NA; Deliveries: I have confirmed and edited as necessary, the PFSH obtained by others. Nelsy Chávez APRN.KWESI 4Th Grade Teacher offered: Patient declines. OBJECTIVE: There were no [...] which included preparing to see the patient, uylz-gt-jyvy patient care, completing clinical documentation, performing a medically appropriate examination, counseling and educating the patient/family/caregiver and ordering medications, tests, or procedures. documented in this encounter [facility] 07-25-2023 Note Patient: Mary arriaza Procedure Summary Date: 07/25/23 Room / Location: [facility] [place] Main OR Anesthesia Start: 1105 Anesthesia Stop: [...] per anesthesia protocol. No notable events documented. [facility] 07-25-2023 Note Patient: Mary arriaza Procedure Summary Date: 07/25/23 Room / Location: [facility] Main OR Anesthesia Start: 1105 Anesthesia Stop: Procedures: EGD DIAGNOSTIC COLONOSCOPY Diagnosis: Gastroesophageal reflux disease without esophagitis Nausea Diarrhea, unspecified type Scheduled Providers: Matteo Quinones MD; Blanquita Ramirez MD Responsible Provider: Blanquita Ramirez MD Anesthesia Type: MAC ASA Status: 3 Anesthesia Post [facility] Patient Monitor: direct observation Transport: uneventful Patient condition is: stable [facility] 07-25-2023 Note Patient: Mary arriaza Procedure Information Date/Time: 07/25/23 1100 Scheduled providers: Matteo Quinones MD; Blanquita Ramirez MD Procedures: EGD DIAGNOSTIC COLONOSCOPY Location: [facility] Main OR Relevant Problems Anesthesia (+) CHUCKIE [...] who. Plan discussed with resident, CAA and COMPUTER SPECIALIST. Additional Equipment Requests [facility] 07-17-2023 Note Medications to take AM day of procedure with sips water only: Atenolol Ropinirole inhaler Medication Hold instructions: NSAIDs (Motrin,Aleve): 5 days prior to procedure Vitamins/Supplements: 5 days prior to procedure IF YOU ARE GOING HOME AFTER YOUR SURGERY OR PROCEDURE, FOR YOUR SAFETY, YOUR SURGERY WILL BE CANCELLED IF BOTH OF THE FOLLOWING ARE NOT AVAILABLE: An adult set key driver over the age of 18, that [...] lenses. Do not wear perfume, make-up, nail beninese, or lotions on the day of your [...] need to make any changes, please call [phone]. Notify your surgeon if you develop any illness such as a cold, cough, fever, sore throat or vomiting between now and your surgery. Thank you for entrusting us with your care. [facility] Surgical Services Team [facility] 06-08-2023 Note Psych Progress Note Time In: 925 Time Out: 940 HPI Present at Visit: Mary, provider, CAR WORKER student Location of Service: Office Review of Systems Constitutional: Negative. Respiratory: Negative. Cardiovascular: Negative. Psychiatric/Behavioral: Negative. Date of Telehealth Visit: 06/08/23 Chief Complaint Patient presents with Telehealth Audio/video Visit @[email or web address] HPI The patient was notified that using 3rd green party telecommunication application (e.g., Coolture) is not HIPPA compliant and may carry some privacy risks. Yes The visit was conducted opik-de-cmxx with the use of audio and video technology [employer] between patient and provider for a virtual [...] dictated by speech recognition. Minor errors in superintendent house may be present. Information on after hour access to care was provided - encouraged to use 911, [facility], their [facility] crisis hotline, or the nearest emergency room in the event of a crisis. Also informed of 24 hour access at [facility] and if in crisis after regular business hours may call the hospital broom machine operator [phone]; and ask to speak with the residential construction instructor on-call. Patient Rights and Responsibilities were discussed, [...] get back t (more content not included)... [facility] 05-31-2023 Note [facility] Abnormal mamm[facility] Arthritis (more content not included)... [facility] 05-22-2023 Note You are not granted access to view this sensitive note. [facility] 05-17-2023 Note Psych Progress Note Time In: 1245 Time Out: 110 HPI Present at Visit: Mary Location of Service: Office Review of Systems Constitutional: Negative. Respiratory: Negative. Cardiovascular: Negative. Psychiatric/Behavioral: Negative. Date of Telehealth Visit: 05/17/23. Chief Complaint Patient presents with Telehealth Audio/video Visit [email or web address] The patient was notified that using 3rd green party telecommunication application (e.g., Coolture) is not HIPPA compliant and may carry some privacy risks. Yes The visit was conducted tmgf-qt-nrrn with the use of audio and video technology [employer] between patient and provider for a virtual [...] dictated by speech recognition. Minor errors in superintendent house may be present. Information on after hour access to care was provided - encouraged to use 911, [facility], their [facility] crisis hotline, or the nearest emergency room in the event of a crisis. Also informed of 24 hour access at [facility] and if in crisis after regular business hours may call the hospital broom machine operator [phone]; and ask to speak with the residential construction instructor on-call. Patient Rights and Responsibilities were discussed, [...] alternatives to tr (more content not included)... [facility] 05-17-2023 Note You are not granted access to view this sensitive note. [facility] 04-26-2023 Evaluation note Encounter Date Diagnosis [...] Above note written by Wanda Yang LPN, Choir Accompanist. Edited and approved by Dr. Annette Harris MD. [employer] Other 06-12-2023 NoteYou are not granted access to view this sensitive note.[facility]06-09-2023 NoteYou are not granted access to view this sensitive note.[facility] 04-11-2023 Miscellaneous Notes* Telephone Encounter - Serenity JosephALYX - 04/11/2023 10:19 AM EDT MEREDITH=10/11/22 Spoke with patient she does need a refill Medication pended please file Rx request if appropriate Patient and pharmacy verified [facility] NoteYou are not granted access to view this sensitive note.[facility]05-15-2023 Miscellaneous Notes* Telephone Encounter - Regina Philippe - 03/20/2023 2:50 PM EDT Should patient follow up via virtual visit to discuss further? * Telephone Encounter - Steffi Ross LPN - 03/20/2023 10:20 AM EDT Patient's stool tests came back normal. Steffi Ross LPN [facility]2023 NoteYou are not granted access to view this sensitive note.[facility]05-01-2023 NoteYou are not granted access to view this sensitive note.[facility]04-24-2023 NoteYou are not granted access to view this sensitive note.[facility]04-18-2023 NotePROCEDURE: XR ANKLE RT MIN 3 [...] Electronically authenticated by: ZAIDA ACOSTA Date: 2023-02-21 10:15[facility]04-18-2023 NotePROCEDURE: XR ANKLE RT MIN 3 VIEWS, [...] Electronically authenticated by: ZAIDA ACOSTA Date: 2023-02-21 10:15[facility]04-17-2023 NoteYou are not granted access to view this sensitive note.[facility]04-13-2023 NotePsych Progress Note Time In: 2 Time Out: 2:25 HPI Present at Visit: Mary Location of Service: Office Review of Systems Constitutional: Negative. Respiratory: Negative. Cardiovascular: Negative. Psychiatric/Behavioral: Negative. Date of Telehealth Visit: 02/20/2023 Chief Complaint Patient presents with Telehealth Audio/video Visit [email or web address] The patient was notified that using 3rd green party telecommunication application (e.g., Coolture) is not HIPPA compliant and may carry some privacy risks. Yes The visit was conducted udnb-pi-znhu with the use of audio and video technology [employer] between patient and provider for a virtual [...] dictated by speech recognition. Minor errors in superintendent house may be present. Information on after hour access to care was provided - encouraged to use 911, [facility], their [facility] crisis hotline, or the nearest emergency room in the event of a crisis. Also informed of 24 hour access at [facility] and if in crisis after regular business hours may call the hospital broom machine operator [phone]; and ask to speak with the residential construction instructor on-call. Patient Rights and Responsibilities were discussed, [...] as all medications m (more content not included)...[facility]04-10-2023 Note Attestation signed by Grant Biswas, PhD at 02/16/2023 2:57 PM This encounter qualifies to be billed under ???Direct Supervision??? because this patient was met by a licensed clinical psychologist upon starting treatment services with the provider who is a clinical psychology field support technician. The licensed clinical psychologist providing supervision [...] in office Patient Location: [facility] in [place] Telehealth Information Telehealth Mode: [employer] (video + audio) The patient was notified that using 3rd green party telecommunication application is not HIPAA compliant and may carry some privacy risks: Yes Video Consent Date of Telehealth Visit: 02/13/23 The patient was notified that using 3rd green party telecommunication application (e.g. Cool[employer]ure) is not HIPAA compliant and may carry some privacy risks: Yes This visit was conducted toub-gi-hflp with the use of audio and video technology using [employer] between patient and the provider for a [...] (ISP): Provider: Carmen Dorsey M.A. (clinical psychology field support technician) Frequency: 1-4 weeks Patient Needs: eleviate [...] oriented to person, orien (more content not included)...[facility]04-03-2023 Note Attestation signed by Grant Biswas, PhD at 02/06/2023 9:45 AM This encounter qualifies to be billed under ???Direct Supervision??? because this patient was met by a licensed clinical psychologist upon starting treatment services with the provider who is a clinical psychology field support technician. The licensed clinical psychologist providing supervision [...] in office Patient Location: [facility] in [place] Telehealth Information Telehealth Mode: [employer] (video + audio) The patient was notified that using 3rd green party telecommunication application is not HIPAA compliant and may carry some privacy risks: Yes Video Consent Date of Telehealth Visit: 02/06/23 The patient was notified that using 3rd green party telecommunication application (e.g. Coolture) is not HIPAA compliant and may carry some privacy risks: Yes This visit was conducted vptm-wf-qwof with the use of audio and video technology using iAgree between patient and the provider for a [...] sleep difficulties. She stated she saw her CAR WORKER and they discussed stopping her trazadone to see if that helps. Pt stated she did not get any sleep the nights she did not take the trazadone and thus started taking it again. She stated she will message her CAR WORKER to let her know. Pt stated she [...] (ISP): Provider: Carmen Dorsey M.A. (clinical psychology field support technician) Frequency: 1-4 weeks Patient Needs: eleviate [...] normal Build/Stature: N/A Gait (more content not included)...[facility]03-30-2023 NotePsych Progress Note Time In: 9:38 [...] dictated by speech recognition. Minor errors in superintendent house may be present. Information on after hour access to care was provided - encouraged to use 911, Rescue Crisis, their [facility] crisis hotline, or the nearest emergency room in the event of a crisis. Also informed of 24 hour access at [facility] and if in crisis after regular business hours may call the hospital broom machine operator [phone]; and ask to speak with the residential construction instructor on-call. Patient Rights and Responsibilities were discussed, [...] needed between scheduled f (more content not included)...[facility] 01-31-2023 NotePROCEDURE: XR FOOT RT MIN [...] Electronically authenticated by: ZAIDA ACOSTA Date: 2023-01-31 11:55[facility]03-20-2023 Note Attestation signed by Grant Biswas, PhD at 01/23/2023 11:30 AM This encounter qualifies to be billed under ???Direct Supervision??? because this patient was met by a licensed clinical psychologist upon starting treatment services with the provider who is a clinical psychology field support technician. The licensed clinical psychologist providing supervision [...] in office Patient Location: Via telehealth in [place] Telehealth Information Telehealth Mode: [employer] (video + audio) The patient was notified that using 3rd green party telecommunication application is not HIPAA compliant and may carry some privacy risks: Yes Video Consent Date of Telehealth Visit: 01/23/23 The patient was notified that using 3rd green party telecommunication application (e.g. Facetime) is not HIPAA compliant and may carry some privacy risks: Yes This visit was conducted msjp-xm-yxlo with the use of audio and video technology using iAgree between patient and the provider for a [...] to live with their older sister in [place]. Pt has met with an criminal defense attorney and is securing the necessary paperwork. [...] (ISP): Provider: Carmen Dorsey M.A. (clinical psychology field support technician) Frequency: 1-4 weeks Patient Needs: eleviate [...] time Attention and Concent (more content not included)...[facility]03-16-2023 Miscellaneous Notes* Telephone Encounter - Jenine Moreno RN - 01/19/2023 2:17 PM EDT Please review and advise patient. documented in this encounterPromedica Toledo Hospital03-13-2023 Miscellaneous Notes* Telephone Encounter - Mounika Hernandez PA-C - 01/16/2023 1:08 PM EDT Patient was scheduled for virtual PACC appt at 1300 today. Patient did not check in for visit. Called patient at [phone] to see if they needed any assistance logging in and left voicemail. This message routed to PACC schedulers to contact patient to reschedule PACC appt. Mounika Hernandez PA-C January 16, 2023 1:09 PM documented in this encounterPromedica Toledo Hospital03-13-2023 History and physical note * Mounika Hernandez PA-C - 01/16/2023 1:00 PM EDT This is a virtual visit using [employer] video visit. It required patient-provider interaction for themedical decision making as documented below. I have communicated my name and active licensure. The patient's identity and physical location wereverified at the time of this visit. Either the patient or their legal cordage sales representative has been informed of the risks and benefits of and alternatives to treatment through a remote evaluation and consents to proceed with the evaluation remotely. Surgeon: Winston Hannah DO Type of surgery: GEN SURG: POP Patient scheduled for surgery on 02/08/23 . Surgery Location: [facility] Diagnosis: Preop examination (primary encounter diagnosis) [...] in the AM and 4 mg PM kbmdqktnjpo-sxeetkffb-zyvynxsa (TRELEGY ELLIPTA) 100-62.5-25 mcg Inhale 1 Puff [...] 16, 2023 12:36 PM documented in this encounterPromedica Toledo Hospital03-13-2023 Instructions* Patient Instructions* Mounika Hernandez PA-C - 01/16/2023 12:38 PM EDT PATIENT PREOPERATIVE INSTRUCTIONS Winston Hannah DO has scheduled you for your procedure at this surgery center: [facility]: [phone] -- [place] [address]. Please read below carefully for your personalized [...] Procedures: - YOU MUST HAVE A RESPONSIBLE CHILD CARE CENTRE MANAGER TAKE YOU HOME. A ROLL CONTOUR GRINDER OR DOUGHNUT GLAZIER CANNOT BE MADE A RESPONSIBLE CHILD CARE CENTRE MANAGER. - We recommend that a responsible person [...] Advance Directive, please fax a copy to [phone] or email to for it to be [...] day. Mounika Hernandez PA-C documented in this encounterPromedica Toledo Hospital03-08-2023 Miscellaneous Notes* Telephone Encounter - Berta Ann RN - 01/11/2023 9:47 AM EST Procedure pended for 02/08/23. Pt aware of need for PACC. Pre-op instructions reviewed, will send to pt's MC, per pt request. Postop appt scheduled. No other questions at this time. Berta HENSON, RN Specialty Manager Information documented in this encounterPromedica Toledo Hospital03-07-2023 NoteHNO ID: [id number] Author: Winston Hannah, DO Service: ? Author Type: Physician Type: Progress Notes Filed: 01/10/2023 6:08 PM Note Text: Digestive Disease AND Surgery [place] Gastroparesis/Dysmotility Follow Up This encounter was provided [...] TIME: 8:59 AM PRIMARY CARE PHYSICIAN: Eliceo Gómez, DO [...] operative findings) with partial fundoplication (nena), based on response to the POP procedure [...] of care. NAME: Mary Leal CLINIC NO: [id number] CHIEF COMPLAINT Idiopathic Gastroparesis HISTORY OF PRESENT [...] thin barium without ob (more content not included)...[facility] 01-10-2023 History of Present illness Narrative* Winston Hannah, DO - 01/10/2023 9:09 AM EST Images from the original note were not included. [facility] Disease & Surgery [place] Gastroparesis/Dysmotility Follow Up This encounter was provided [...] TIME: 8:59 AM PRIMARY CARE PHYSICIAN: Eliceo Gómez, DO [...] Mary Zoya Leal is candidate for Per OralPyloromyotomy -Schedule EGD with Per Oral Pyloromyotomy -Smart Pill Reviewed -Continue Dexilant every day -GERD Lifestyle modifications and diet reviewed -GP diet as tolerated -Follow up in 4 week after procedure Risk, benefits, and alternatives were discussed in detail. All questions were answered, and patientelects to proceed with the intended plan of care. NAME: Mary Leal CLINIC NO: [id number] CHIEF COMPLAINT Idiopathic Gastroparesis HISTORY OF PRESENT [...] Normal gastric transit Normal small bowel transit [id number] transit in the distal bowel consistent delay [...] (FLONASE) 50 mcg/actuation nasal spray Use 1 Hamburg in each nostril once daily. carBAMazepine XR [...] THE LUNGS every 4 hours if needed sfqtfazxfxs-yragzdufi-tvjakolq (TRELEGY ELLIPTA) 100-62.5-25 mcg Inhale 1 Puff [...] dialysis. No history of symptoms or problems. STAND UP FORKLIFT OPERATOR: Negative for abnormal vaginal bleeding, abnormal [...] and plan of care. documented in this encounterPromedica Toledo Hospital03-03-2023 [facility] Time In: [...] week. Annette Swanson DO (more content not included)...[facility] 01-02-2023 NotePsychiatry Psychotherapy Progress Note Time In: 11:00 am Time Out: 11:53 am Present At Visit: Patient Clinician Location: Clinician in office Patient Location: Via telehealth in [place] Telehealth Information Telehealth Mode: Webex (video + audio) The patient was notified that using 3rd green party telecommunication application is not HIPAA compliant and may carry some privacy risks: Yes Video Consent Date of Telehealth Visit: 01/02/23 The patient was notified that using 3rd green party telecommunication application (e.g. Coolture) is not HIPAA compliant and may carry some privacy risks: Yes This visit was conducted fnls-yz-brlw with the use of audio and video technology using [employer] between patient and the provider for a [...] and nephew live with their sister in [place]. Pt stated she is done raising kids [...] with her children before they go to [place]. Pt acknowledged she was not looking forward [...] (ISP): Provider: Carmen Dorsey M.A. (clinical psychology field support technician) Frequency: 1-4 weeks Patient Needs: eleviate [...] Disp: , Rfl: alend (more content not included)...[facility] 12-29-2022 Miscellaneous Notes* Addendum Note - Yoni Tuttle MD - 12/29/2022 3:37 PM ESTAddended by: YONI TUTTLE MD on: 12/29/2022 03:37 PM Modules accepted: Orders documented in this encounterPromedica Toledo Hospital02-20-2023 History of Present illness Narrative* Deb Booker RT(R) - 12/26/2022 3:00 PM EST Radiology Service [...] 26, 2022 3:17 PM documented in this encounterPromedica Toledo Hospital02-17-2023 Miscellaneous Notes* Telephone Encounter - Erica Serrano RN - 12/23/2022 4:36 PM EST Message being addressed in another encounter that was forwarded to provider documented in this encounterPromedica Toledo Hospital02-16-2023 History of Present illness Narrative* Winston Hannah DO - 12/22/2022 8:52 AM EST Images from the original note were not included. [facility] Disease [facility] Surgery [place] Gastroparesis/Dysmotility Follow Up This encounter was provided [...] completed esophagram NAME: Mary Leal CLINIC NO: [id number] CHIEF COMPLAINT Idiopathic Gastroparesis HISTORY OF PRESENT [...] chicken spaghetti etc. Duration of symptoms (months): 2315-9637 Weight changes in last 3 months: Stable [...] Normal gastric transit Normal small bowel transit [id number] transit in the distal bowel consistent delay [...] (FLONASE) 50 mcg/actuation nasal spray Use 1 Hamburg in each nostril once daily. carBAMazepine XR [...] THE LUNGS every 4 hours if needed byddofgucvq-pgeyaistz-yabdgoup (TRELEGY ELLIPTA) 100-62.5-25 mcg Inhale 1 Puff [...] dialysis. No history of symptoms or problems. STAND UP FORKLIFT OPERATOR: Negative for abnormal vaginal bleeding, abnormal [...] and plan of care. documented in this encounterPromedica Toledo Hospital02-15-2023 NotePROCEDURE: XR FOOT RT MIN 3 [...] Electronically authenticated by: ZAIDA ACOSTA Date: 2022-12-21 12:24[facility]02-09-2023 History of Present illness Narrative* Mary Obrien [...] in the AM and 4 mg PM kldemmhseti-qyjhpaujs-xsmwemyd (TRELEGY ELLIPTA) 100-62.5-25 mcg Inhale 1 Puff [...] which included preparing to see the patient, vlvw-aj-mawq patient care, completing clinical documentation, obtaining and/or reviewing separately obtained history, counseling and educating the patient/family/caregiver, ordering medications, quincy ts, or procedures, communicating with other HCPs (not separately reported), independently interpreting results (not separately reported), communicating results to the patient/family/caregiver, and care coordination (not separately reported). Mary Obrien MD Colorectal Surgery documented in this encounterPromedica Toledo Hospital02-08-2023 Miscellaneous Notes* Telephone Encounter - Emily Benton RN - 12/14/2022 5:19 PM EST Several attempts to reach pt unsuccessful - MC sent. * Telephone Encounter - Barber Marie - 12/02/2022 8:39 AM EST SLEEP PHONE Name of caller: Mary Leal Relationship to patient : Self In-state or gkf-kk-vwwvc patient: In-State Was permission obtained from patient? Yes Patient identified by Name and Date of . ( Mary Leal, 1970). Yes Reason for Call : Patient said her and Emily was chatting through my chart and Emily calledher about 5:15 yesterday. Number to return call [phone] Okay to leave a message ? Yes Last office visit 10/14/[address] Kusum vines Next office visit 01/13/[address] Tuttle virtual documented in this encounterPromedica Toledo Hospital02-06-2023 NotePsychiatry Psychotherapy Progress Note Time In: 8:30 am Time Out: 9:25 am Present At Visit: Patient Clinician Location: Clinician in office Patient Location: Via telehealth in [place] Telehealth Information Telehealth Mode: Webex (video + audio) The patient was notified that using 3rd green party telecommunication application is not HIPAA compliant and may carry some privacy risks: Yes Video Consent Date of Telehealth Visit: 12/12/22 The patient was notified that using 3rd green party telecommunication application (e.g. Coolture) is not HIPAA compliant and may carry some privacy risks: Yes This visit was conducted rzft-me-cbfd with the use of audio and video technology using iAgree between patient and the provider for a [...] (ISP): Provider: Carmen Dorsey M.A. (clinical psychology field support technician) Frequency: 1-4 weeks Patient Needs: eleviate [...] of water, on an (more content not included)...[facility]02-06-2023 Miscellaneous Notes* Telephone Encounter - Jet Wong RN - 12/12/2022 9:[address] Obrien sent my chart message to respond to this phone encounter and previous my chart message. * Telephone Encounter - Madyson Hunter - 12/09/2022 3:22 PM EST Patient called and left message regarding post operative 03/2022 total laparoscopic colectomy and concerns regarding symptoms and follow up testing return call to [phone] documented in this encounterPromedica Toledo Hospital02-03-2023 NoteDepartment of Psychiatry Outpatient Progress Note Time In: 3 PM Time Out: 3:30 PM Present At Visit: Patient Clinician Location: Clinician in office Patient Location: In office Subjective CC: Chief Complaint Patient presents with Telehealth Audio/video Visit [email or web address] HPI: Mary Leal is a 52 y.o. [...] teratogenicity, and medication (more content not included)... [facility]02-03-2023 Miscellaneous Notes* Telephone Encounter - MALAIKA [...] the symptoms. * Telephone Encounter - Nelsy Gilmore RN - 12/08/2022 4:54 PM EST SPECIALTY [...] patient Summary: As noted Concerns: Procedure results Manager Information plan for next outreach: Will follow up Signature Nelsy Gilmore RN December 08, 2022 documented in this encounterPromedica Toledo Hospital01-30-2023 Nurse Note* Lisa Contreras RN - 12/05/2022 1:05 PM EST [facility] ENDOSCOPY PRE PROCEDURE CALL Akiko. I'm calling from [facility] endoscopy to provide you with the information for your surgery/procedure tomorrow. Spoke to: Patient CONFIRM Procedure Planned with patient:Esophagogastroduodenoscopy(EGD) with or without biopies based on clinical findings, removal of polyps or lesions Are you familiar with where [facility] is located?yes Address [facility] Patient instructed to enter through the main hospital entrance off [address] at [address] through the revolving doors and check in at the main desk with your set key driver's license and insurance card.yes When anesthesia or sedation is being given: Patient instructed you must have an adult set key driver because you will not be able to work or drive for the rest of the day after your test.yes Can you please confirm the name and relationship of your set key driver. tbd What is the best number for your set key driver to be reached at tomorrow for updates? tbd Your set key driver is allowed to wait here with [...] instructed not bring any valuables, jewelry, or ocx and wear comfortable clothing. Do not wear makeup, lotion, or finger beninese. yes Patient instructed: Please bring a list [...] given Any barriers to Patient learning (confusion? Chief Deputy needed?): Patient/Patient Atomic Welder responded appropriately on phone. If patient needs to reschedule please call: [phone] [facility] phone number: [phone] Type of instruction given: Verbal by telephone contact. documented in this encounterPromedica Toledo Hospital01-27-2023 Nurse Note* Isra Harman RN - 12/02/2022 10:48 AM EST [facility] ENDOSCOPY PRE PROCEDURE CALL Akiko. I'm calling from [facility] endoscopy to provide you with the information for your surgery/procedure tomorrow. Spoke to: Patient CONFIRM Procedure Planned with patient: Are you familiar with where [facility] is located?yes Address [address] [place] [address] Patient instructed to enter through the main hospital entrance off [address] at the [address] through the revolving doors and check in at the main desk with your set key driver's license and insurance card.yes When anesthesia or sedation is being given: Patient instructed you must have an adult set key driver because you will not be able to work or drive for the rest of the day after your test.yes Can you please confirm the name and relationship of your set key driver. Rich What is the best number for your set key driver to be reached at tomorrow for updates? 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 yes Patient instructed: Please bring a list [...] given Any barriers to Patient learning (confusion? Chief Deputy needed?): Patient/Patient Atomic Welder responded appropriately on phone. If patient needs to reschedule please call: [phone] [facility] phone number: [phone] Type of instruction given: Verbal by telephone contact. documented in this encounterPromedica Toledo Hospital01-26-2023 NotePROCEDURE: XR FOOT RT MIN 3 [...] Electronically authenticated by: ZAIDA ACOSTA Date: 2022-12-01 11:42[facility]01-26-2023 NotePROCEDURE: XR FOOT RT MIN 3 VIEWS, [...] Electronically authenticated by: ZAIDA ACOSTA Date: 2022-12-01 11:42[facility]01-25-2023 History of Present illness Narrative* Isra Masters, [...] in the AM and 4 mg PM xicapbmpjme-uaozqkcmb-jdfenpnh (TRELEGY ELLIPTA) 100-62.5-25 mcg Inhale 1 Puff [...] no edema RESPIRATORY: No dyspnea : neg STAND UP FORKLIFT OPERATOR: neg The remainder of the review [...] Isra Masters DO 11/30/2022 documented in this encounterPromedica Toledo Hospital01-19-2023 Miscellaneous Notes* Telephone Encounter - Erica Serrano RN - 11/24/2022 3:20 PM EST This concern was addressed in the phone encounter on 11/24/22. Patient was called back and informed [employer] will complete Prior Authorization for her sleep study. documented in this encounterPromedica Toledo Hospital01-19-2023 Miscellaneous Notes* Telephone Encounter - Erica [...] Relationship to patient : Self In-state or zmi-af-idxim patient: In-State Was permission obtained from patient? Yes Patient identified by Name and Date of . ( Mary Leal, 1970). Yes Reason for Call : Patient stated she spoke to her insurance and they told her that the provider need to call [employer] to see if a PA is needed for the PAP Titration. Number to return call [phone] Okay to leave a message ? Yes Last office visit 10/14/[address] Tuttle virtual Next office visit None documented in this encounterPromedica Toledo Hospital01-19-2023 History of Present illness Narrative* Isra Masters DO - 11/24/2022 8:29 AM EST Images from the original note were not included. [employer] Test Report - [id number] Test start date: 11/17/2022 10:03 AM German Teacher: josephine Interpretation date: 11/24/2022 Ordering physician: Isra Masters DO Referring physician: Patient Information Name: Mary Leal ID: [id number] date: 1970 Height ft. in.: 5' 4 [...] Normal gastric transit Normal small bowel transit 47na46opo transit in the distal bowel consistent delay post anastomosis Signature _Dr. Masters Date _11/24/2022 documented in this encounterPromedica Toledo Hospital01-17-2023 Miscellaneous Notes* Telephone Encounter - Regina Philippe - 11/22/2022 3:37 PM EST Patient calling to verify that Smart Pill monitor was received at [facility]. Monitor was sent via [employer] on 11/19/22. Patient is requesting a confirmation. documented in this encounterPromedica Toledo Hospital01-16-2023 Miscellaneous Notes* Telephone Encounter - Erica Serrano RN - 11/21/2022 9:11 AM EST [employer] message sent to patient. Prior Sleep study forwarded to MD to review, Order pended for PAP-titration for provider to review and sign if necessary. documented in this encounterPromedica Toledo Hospital01-16-2023 History and physical note * Yodit Back PA-C - 11/21/2022 8:00 AM EST [facility] TELEHEALTH VISIT Patient has been identified by name and date of : Yes This is a virtual visit using [employer] video visit. It require patient-provider interaction for [...] in the AM and 4 mg PM sejtsuoyjim-pfdfzizja-ptybpzfi (TRELEGY ELLIPTA) 100-62.5-25 mcg Inhale 1 Puff as instructed once daily. No current facility-administered medications for this visit. COVID VACCINATION STATUS: Fully vaccinated REVIEW OF SYSTEMS: Pain Assessment: General: No weight loss, malaise or fevers. Neuro: No history of TIA's, stroke, HOT TAR ROOFER tumor, impaired sensorium, hemiplegia, paraplegia or quadraplegia. [...] requiring medication, no history of angina, CHF, UT, cardiac surgery or stents. Denies rest pain, gangrene or revascularization/amputation for PVD. No history of cardiovascular symptoms or problems. + HLD GI: See HPI : No history of dysuria, frequency or incontinence,, stones or chronic kidney disease STAND UP FORKLIFT OPERATOR: Negative for abnormal vaginal bleeding, abnormal [...] (%) Date Value 06/10/2021 5.9 All in [facility] Impression/Recommendations ASSESSMENT: HTN (hypertension) Assessment: hx of [...] 8:07 AM PAGER/CONTACT #: documented in this encounterPromedica Toledo Hospital01-12-2023 Miscellaneous Notes* Addendum Note - Yoni [...] PSG results. * Telephone Encounter - Barber PatelBryMartinez - 11/02/2022 12:33 PM EST Received from [facility] Sleep [facility] Report via fax. 8 pages indexed to chart. documented in this encounterPromedica Toledo Hospital01-12-2023 History of Present illness Narrative* Annmarie [...] complete. You will be wearing a Data Circulation Librarian around your neck like a necklace during the test. You must keepthis near you at all times. The Data Circulation Librarian has an EVENT button. You will be [...] is inside your body. Return the Data Circulation Librarian to the [facility] after your test is completed. Brittanie Gillespie RN documented in this encounterPromedica Toledo Hospital01-09-2023 NotePROCEDURE: XR FOOT RT MIN 3 [...] authenticated by: ZAIDA ACOSTA Date: 2022-11-14 10:39[facility] [id number] NotePROCEDURE: XR FOOT RT MIN 3 VIEWS [...] authenticated by: NICKI DACOSTA Date: 2022-11-10 11:44[facility] [id number] Miscellaneous Notes* Telephone Encounter - Annmarie Gillespie RN - 11/10/2022 9:07 AM EST Telephoned patient with [employer] procedure appointment reminder/instructions. Brittanie Gillespie, RN documented in this encounterPromedica Toledo [facility] Miscellaneous Notes* Telephone Encounter - Regina [...] to make it legit. documented in this encounterPromedica Toledo Hospital01-04-2023 Miscellaneous Notes* Telephone Encounter - Wali Doll - 11/09/2022 9:47 AM EST SENT PATIENTS RX TO PREFERRED LOCATION [facility] [phone] Wali Doll STOCK REPAIRER documented in this encounterPromedica Toledo Hospital01-03-2023 Miscellaneous Notes* Telephone Encounter - Regina Philippe - 11/08/2022 11:15 AM EST Per Soumya in provider services at [facility]. No prior auth is needed,coverage is active, patient can proceed with Smart Pill. Placed a new referral. Call Ref # [id number] * Telephone Encounter - Regina Philpipe - 11/02/2022 3:51 PM EST Spoke with patient. Smart Pill is a covered benefit. Sent email to Smart Pill outsole scheduler and [facility] to assist in scheduling Smart Pill in [...] procedure, she can call Earlene Martin at [phone]. documented in this encounterPromedica Toledo Hospital12-19-2022 Miscellaneous Notes* Telephone Encounter - Steffi [...] calling: self Call patient at: at home [phone] (home) [phone] (cell) Closing statement: Symptom Call: Thank you for calling [facility], your call is very important. A nurse will call in approximately 2-4 hours during business hours. If this is an emergency, please contact 911. Nati Hernandez documented in this encounterPromedica Toledo Hospital12-13-2022 Miscellaneous Notes* Telephone Encounter - Brooklyn Valle LPN - 10/18/2022 2:43 PM EST Requested Prescriptions Pending Prescriptions Disp Refills Dexlansoprazole 60 mg CpDM [Pharmacy Med Name: DEXLANSOPRAZOLE DR 60 MG CAP] 30 capsule 5 Sig: take 1 capsule by mouth before breakfast Patient last seen 10/11/2022 documented in this encounterPromedica Toledo Hospital12-12-2022 NotePROCEDURE: XR FOOT RT MIN 3 [...] Electronically authenticated by: NICKI DACOSTA Date: 2022-10-17 18:06[facility]12-12-2022 NotePROCEDURE: XR FOOT RT MIN 3 VIEWS, [...] Electronically authenticated by: NICKI DACOSTA Date: 2022-10-17 18:06[facility]12-12-2022 Miscellaneous Notes* Telephone Encounter - Wali Doll - 10/17/2022 9:17 AM EST Faxed order, office notes, demographics, and sleep study to: SAIMA name: [facility] fax: [phone] DME ph: ALSO SENT A REQUEST FOR PTS PSG FROM [facility] IN [place] documented in this encounterPromedica Toledo Hospital12-06-2022 History of Present illness Narrative* Isra [...] (FLONASE) 50 mcg/actuation nasal spray Use 1 Hamburg in each nostril once daily. carBAMazepine XR (TEGRETOL XR) 400 mg 12 hr tablet Take 400 mg by mouth q 12 HR. ARIPiprazole (ABILIFY) 30 mg tablet Take 30 mg by mouth once daily. albuterol HFA (PROVENTIL HFA, VENTOLIN HFA) 90 mcg/actuation inhaler inhale 2 puffs by mouth INTO THE LUNGS every 4 hours if needed eiflmeudvts-pbqjxanrt-itomwcgz (TRELEGY ELLIPTA) 100-62.5-25 mcg Inhale 1 Puff [...] no edema RESPIRATORY: No dyspnea : neg STAND UP FORKLIFT OPERATOR: neg The remainder of the review [...] Isra Masters DO 10/11/2022 documented in this encounterPromedica Toledo Hospital12-05-2022 Evaluation note* Encounter Date Diagnosis Assessment [...] for rotator cuff healing or recurrent tear [facility] Other 12-01-2022 Evaluation note* Encounter Date Diagnosis [...] note writ ten by Wanda Yang LPN, Choir Accompanist. Edited and approved by Dr. Annette Harris MD. [facility] Other 11-17-2022 Evaluation note* Encounter Date Diagnosis [...] educated regarding the risks and benefits of correction opioid use. She understands the associated risks [...] note writ ten by Lupillo Amezquita MA, Choir Accompanist. Edited and approved by Dr. Annette Harris MD. [facility] Other 11-17-2022 Evaluation note* Encounter Date Diagnosis Assessment Notes Treatment Notes Treatment Clinical Notes Sep, Lumbosacral spondylosis without myelopathy (ICD-10 - M47.817) [facility] Other 11-09-2022 Evaluation note* Encounter Date Diagnosis [...] note writ ten by Wanda Yang LPN, Choir Accompanist. Edited and approved by Dr. Annette Harris MD. [facility] Other 09-21-2022 NotePROCEDURE: XR ANKLE RT MIN 3 VIEWS, XR FOOT RT MIN 3 VIEWS COMPARISON: 01/06/2021 HISTORY: Pain of right ankle joint FINDINGS: BONES:Remote osteotomy head of the first metatarsal fixed with a single screw. No acute fracture or dislocation. SOFT TISSUES:Negative. No visible soft tissue swelling. EFFUSION:None visible. OTHER: Negative. IMPRESSION: No acute abnormality Electronically authenticated by: NICKI DACOSTA Date: 2022-07-27 19:[address] [place], [place] 7078709-21-2022 NotePROCEDURE: XR ANKLE RT MIN 3 VIEWS, XR FOOT RT MIN 3 VIEWS COMPARISON: 01/06/2021 HISTORY: Pain of right ankle joint FINDINGS: BONES:Remote osteotomy head of the first metatarsal fixed with a single screw. No acute fracture or dislocation. SOFT TISSUES:Negative. No visible soft tissue swelling. EFFUSION:None visible. OTHER: Negative. IMPRESSION: No acute abnormality Electronically authenticated by: NICKI DACOSTA Date: 2022-07-27 19:[address] [place], [place] 7078[address]-20-2022 Miscellaneous Notes* Telephone Encounter - Silvia Ybarra - 07/26/2022 2:56 PM EDT PA for Dexlansoprazole initiated electronically. Awaiting response [employer] ID# [id number] * Telephone Encounter - Tracy Khan PSS - 07/26/2022 1:43 PM EDT Patient needs a prior authorization Medication Order name: Dexlansoprazole 60 mg CpDM Medication: DEXLANSOPRAZOLE 60 MG CAPSULE,BIPHASE DELAYED RELEASE [[id number]] Dispense as Written: No documented in this encounterPromedica Toledo Hospital09-20-2022 History of Present illness Narrative* Mary Obrien MD - 07/26/2022 11:20 AM EDT COLORECTAL SURGERY July 26, 2022 Mary Ornelasgs Chief Complaint: post op visit/ colonic inertia [...] in the AM and 4 mg PM bovorzooxqe-lkirsfofb-tqxobvtu (TRELEGY ELLIPTA) 100-62.5-25 mcg Inhale 1 Puff [...] (FLONASE) 50 mcg/actuation nasal spray Use 1 Hamburg in each nostril once daily. carBAMazepine XR [...] which included preparing to see the patient, ltyp-pd-dcal patient care, completing clinical documentation, obtaining and/or reviewing separately obtained history, performing a medically appropriate examination, counseling and educating the pat ient/family/caregiver, ordering medications, tests, or procedures, and care coordination (not separately reported). Mary Obrien MD Colorectal Surgery documented in this encounterPromedica Toledo Hospital09-20-2022 Nurse Note* Re Sierra MA - 07/26/2022 11:12 AM EDT What is the reason for your visit today? Established patient presents for post op. Who is your referring physician? Are you having poor oral intake? NO Have you had unintentional weight loss of 15 lbs/7 Kg in the last 3-6 months? NO Bowels: Wound: none Temperature: No Drains: No documented in this encounterPromedica Toledo Hospital08-04-2022 NotePROCEDURE: In the coronal projection, without [...] and signed by Quinton Carson on 06/09/2022 1113[facility]08-02-2022 Miscellaneous Notes* Telephone Encounter - Raquel Sebas - 06/07/2022 3:34 PM EDT Patient needs RX sent to [facility] in [facility]. The previous was sent to pharmacy which she cannot get to for its an hour away from her [place]. * Telephone Encounter - Raquel Sebas - 06/06/2022 4:00 PM EDT Patient calling in in regards to prescription refill request from last week. * Telephone Encounter - Raquel Sebas - 05/30/2022 8:12 AM EDT Patient's request for medication is as follows: Pending Prescriptions Disp Refills LACTOBACILLUS RHAMNOSUS GG 10 BILLION CELL CAPSULE 30 capsule 0 Sig: Take 1 capsule by mouth once daily. OLGA: No Prescription(s) as above. Please process accordingly. Raquel Mullen documented in this encounterPromedica Toledo Hospital07-21-2022 Evaluation note* Encounter Date Diagnosis Assessment [...] note writ ten by Lupillo Amezquita MA, Choir Accompanist. Edited and approved by Dr. Annette Harris MD. [facility] Other 07-05-2022 Evaluation note* Encounter Date Diagnosis [...] Patient care instructions given in writing by [facility] At Home document. [facility] Other 06-28-2022 Miscellaneous Notes* Telephone Encounter - Jet Wong RN - 05/03/2022 10:44 AM EDT [...] concerns at this time. documented in this encounterPromedica Toledo Hospital06-21-2022 Miscellaneous Notes* Telephone Encounter - Jet Wong RN - 04/26/2022 12:16 PM EDT [...] or concerns. * Telephone Encounter - Raquel Sebas - 04/26/2022 8:16 AM EDT Patient would like to know if she can go swimming after her procedure on 03/28. Thanks! documented in this encounterPromedica Toledo Hospital06-17-2022 History of Present illness Narrative* Jessi [...] (FLONASE) 50 mcg/actuation nasal spray Use 1 Hamburg in each nostril once daily. carBAMazepine XR [...] THE LUNGS every 4 hours if needed alhhynbagjw-iaihunghb-jpsziwud (TRELEGY ELLIPTA) 100-62.5-25 mcg Inhale 1 Puff [...] and/or complications of treatment plan: jesu Sheets APRN.CNP Colorectal Surgery documented in this encounterPromedica Toledo Hospital06-17-2022 Nurse Note* Mary Mena MA - 04/22/2022 12:06 PM EDT .What is the reason for your visit today? Post op Who is your referring physician? Self Are you having poor oral intake? NO Have you had unintentional weight loss of 15 lbs/7 Kg in the last 3-6 months? NO Bowels: regular Wound: none Temperature: No Drains: No documented in this encounterPromedica Toledo Hospital06-02-2022 Miscellaneous Notes* Telephone Encounter - Rachael - 04/07/2022 12:35 AM EDT Record ID: [id number] Patient name: Mary Leal Date: April 06, [...] likely is it that you would recommend [facility] to a friend or family member? -> likely Please tell me what you liked best about your hospital experience: -> The nurses documented in this encounterPromedica Toledo Hospital05-31-2022 NoteHNO ID: [id number] Author: Pravin Ladd MD Service: Colorectal Author Type: Resident Type: Progress Notes Filed: 04/05/2022 7:52 AM Note Text: COLORECTAL SURGERY PROGRESS NOTE Mary Leal [id number] ASSESSMENT AND PLAN Mary Leal is a [...] - General Pravin Ladd MD General Surgery residentJewish Healthcare CenterZjvkcrbo06-09-2774 NoteHNO ID: [id number] Author: Nita Lamas MD Service: Colorectal Author Type: Fellow Type: Progress Notes Filed: 04/04/2022 9:40 AM Note Text: COLORECTAL SURGERY PROGRESS NOTE Mary Kenny Elvis [id number] ASSESSMENT AND PLAN Mary Leal is a [...] Nita Lamas MD Colorectal Fellow 04/04/2022 9:40 [facility]05-29-2022 NoteHNO ID: [id number] Author: Pravin Ladd MD Service: Colorectal Author Type: Resident Type: Progress Notes Filed: 04/03/2022 8:03 AM Note Text: COLORECTAL SURGERY PROGRESS NOTE Mary Leal [id number] ASSESSMENT AND PLAN Mary Leal is a [...] - General Pravin Ladd MD General Surgery ResidentJewish Healthcare CenterEijahwoz93-89-4339 NoteHNO ID: [id number] Author: Nancy Cadena MD Service: Colorectal Author Type: Resident Type: Progress Notes Filed: 04/02/2022 8:34 AM Note Text: COLORECTAL SURGERY PROGRESS NOTE Mary Leal [id number] ASSESSMENT AND PLAN Mary Leal is a [...] Nancy Cadena MD General Surgery Resident, PGY-2 [id number] NoteHNO ID: [id number] Author: Nancy Cadena MD Service: Colorectal Author [...] 2022 COLORECTAL SURGERY PROGRESS NOTE Mary Leal [id number] ASSESSMENT AND PLAN Mary Leal is a [...] Nancy Cadena MD General Surgery Resident, PGY-2 [id number] NoteHNO ID: [id number] Author: Yolanda Lamb MD Service: Colorectal Author Type: Resident Type: Progress Notes Filed: 03/31/2022 9:08 AM Note Text: COLORECTAL SURGERY PROGRESS NOTE Mary Leal [id number] ASSESSMENT AND PLAN Mary Leal is a [...] RESECTION AND ANASTOMOSIS - General Yolanda Lamb MDJewish Healthcare CenterKejlennb01-40-5509 NoteHNO ID: [id number] Author: Pravin Ladd MD Service: Colorectal Author [...] 2022 COLORECTAL SURGERY PROGRESS NOTE Mary Leal [id number] ASSESSMENT AND PLAN Mary Leal is a 51 year old female with PMHx Asthma, HTN, BPD, Dyslipidemia and colonic inertia who is now s/p Hand assisted TAC, EI takedown + OANH 03/28 - D/C SINGLE END SEWER - Advance to GI soft diet - [...] RESECTION AND ANASTOMOSIS - General Pravin Ladd MDJewish Healthcare CenterHcfvfnyy96-13-0804 NoteHNO ID: [id number] Author: ELIZABETH Dias Service: Care Management Author Type: Green Marketing Analyst Type: Care Mgt Initial Assessment Filed: 03/29/2022 [...] time ADVANCE DIRECTIVES Current Advance Directive: None Marine Fuel Dock Attendant Attempted to Assist with AD Completion: Yes [...] Housing Stability: Not on file PATIENT SCREEN 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 Stated Goals: To be cured/healed Under the [...] Extended Emergency Contact Information Primary Emergency Contact: Topher Charo Mobile Relation: Daughter No social discharge barriers [...] March 29, 2022 TIME: 3:45 PM PHONE: [phone] [id number] NoteHNO ID: [id number] Author: Pravin Ladd MD Service: Colorectal Author Type: Resident Type: Progress Notes Filed: 04/01/2022 5:50 AM Note Text: COLORECTAL SURGERY PROGRESS NOTE Mary Leal [id number] ASSESSMENT AND PLAN Mary Leal is a 51 year old female with PMHx Asthma, HTN, BPD, Dyslipidemia and colonic inertia who is now s/p Hand assisted TAC, EI takedown + OANH 03/28 - SINGLE END SEWER for pain control - Magnesium replacement for [...] RESECTION AND ANASTOMOSIS - General Pravin Ladd MDJewish Healthcare CenterYwjnliul71-74-1676 NoteHNO ID: [id number] Author: Nathanael Craig DO Service: Anesthesiology Author Type: Anesthesiologist Type: Anesthesia Procedure Notes Filed: 03/28/2022 4:16 PM Note Text: ANESTHESIOLOGY PROCEDURE NOTE Peripheral Nerve Block General Information Procedure Start Time/Medication Administration: 03/28/2022 3:50 PM Procedure End time: 03/28/2022 3:55 PM Patient location during procedure: OR Timeout Performed Pre-procedure: timeout performed Consent Obtained: Yes 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: care sales floor team member and arm band Reason for [...] 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 and care sales floor team member Reason for block: post-op pain management/at surgeon's request Staffing Anesthesiologist: Nathanael Craig, Preparation Sterility Preparation: hand hygiene performed prior [...] March 28, 2022 TIME: 4:14 PM CSN: [id number] NoteHNO ID: [id number] Author: Carmen Stanley APRN.COMPUTER SPECIALIST Service: Anesthesiology Author Type: Nurse General Assignment Reporter Type: Anesthesia Procedure Notes Filed: 03/28/2022 9:49 AM Note Text: ANESTHESIOLOGY PROCEDURE NOTE Airway General Information Procedure Start Time/Medication Administration: 03/28/2022 9:21 AM Patient location during procedure: OR 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, care sales floor team member and patient Staffing COMPUTER SPECIALIST: Carmen Stanley APRN.COMPUTER SPECIALIST Performed by: COMPUTER SPECIALIST Indications and Patient Condition Preoxygenated: yes [...] March 28, 2022 TIME: 9:49 AM CSN: [id number] NoteHNO ID: [id number] Author: Carmen Stanley APRN.COMPUTER SPECIALIST Service: Anesthesiology Author Type: Nurse General Assignment Reporter Type: Anesthesia Procedure Notes Filed: 03/28/2022 9:49 [...] March 28, 2022 TIME: 9:48 AM CSN: [id number] Miscellaneous Notes* Telephone Encounter - Jet Wong RN - 03/22/2022 11:41 AM EDT [...] colon. Would like a call back at [phone] documented in this encounterPromedica Toledo Hospital05-10-2022 Miscellaneous Notes* Telephone Encounter - Jennie Moreno RN - 03/15/2022 2:39 PM EDT Outside medical record EGD H Pylori biopsy received by fax. Scanned into [employer] under scanned documents. Hard copy handed to Dr. Masters. Per Dr Masters- please call patient and let her know the H Pylori biopsy is negative. Called patient . Message relayed. No questions at this time. * Telephone Encounter - Karthikeyan Turk RN - 03/15/2022 2:21 PM EDT Called [employer] and I was transferred to medical records. Requesting a cover sheet with the request result be faxed to them at [phone]. H Pylori result request faxed with confirmation. * Telephone Encounter - Karthikeyan Turk RN - 03/15/2022 2:21 PM EDT Images from the original note were not included. DO Leo Mariano Sp Ddsi Clinical Pool Please contact [facility] [phone] to see if the H pylori biopsy is back yet from her EGD there documented in this encounterPromedica Toledo Hospital05-10-2022 Evaluation note* Encounter Date Diagnosis Assessment [...] note writ ten by Wanda Yang LPN, Choir Accompanist. Edited and approved by Dr. Annette Harris MD. [facility] Other 05-10-2022 Miscellaneous Notes* Telephone Encounter - Silvia Ybarra - 03/15/2022 1:24 PM EDT CECILIA for Dexilant renewal initiated through [employer]. Awaiting response ID# [id number] Rx BIN [id number] Rx PCN MCAIDOH Rx Grp [id number] documented in this encounterPromedica Toledo Hospital05-10-2022 Miscellaneous Notes* Telephone Encounter - Jet Wong RN - 03/15/2022 9:28 AM EDT She called the office with complaints of dark red blood in her ostomy bag for the last 2 weeks. [place]. She had an EGD in [place] that showed gastritis. She followed up with [...] concerns at this time. documented in this encounterPromedica Toledo Hospital05-10-2022 History of Present illness Narrative* Isra [...] seem be musculoskeletal in nature.EGD done in [facility] showed some gastritis and duodenitis. Current [...] (FLONASE) 50 mcg/actuation nasal spray Use 1 Hamburg in each nostril once daily. carBAMazepine XR [...] THE LUNGS every 4 hours if needed yrceuqjsfhl-crsdnqvll-retevoei (TRELEGY ELLIPTA) 100-62.5-25 mcg Inhale 1 Puff [...] no edema RESPIRATORY: No dyspnea : neg STAND UP FORKLIFT OPERATOR: neg The remainder of the review [...] Isra Masters DO 03/15/2022 documented in this encounterPromedica Toledo Hospital05-09-2022 Instructions* Patient Instructions* Urmila Alexander APRN.IMPLEMENTATION PROJECT MANAGER - 03/14/2022 10:43 AM EDT PATIENT PREOPERATIVE INSTRUCTIONS Mary Obrien MD has scheduled you for your procedure at [facility]: [phone] --[address] [address]. Please check in on the1st floor at [...] Procedures: - YOU MUST HAVE A RESPONSIBLE CHILD CARE CENTRE MANAGER TAKE YOU HOME. A ROLL CONTOUR GRINDER OR DOUGHNUT GLAZIER CANNOT BE MADE A RESPONSIBLE CHILD CARE CENTRE MANAGER. - We recommend that a responsible person [...] Advance Directive, please fax a copy to [phone] or email to for it to be [...] your chart that day. documented in this encounterPromedica Toledo Hospital05-09-2022 History and physical note * Urmila [...] fevers. Neurological: No history of TIA's, stroke, HOT TAR ROOFER tumor, impaired sensorium, hemiplegia, paraplegia orquadraplegia. No [...] > 1 time per night or hematuria. STAND UP FORKLIFT OPERATOR: Negative for abnormal vaginal bleeding, abnormal [...] every 4 hours if needed Taking Yes lvlcojfczgz-dkofwahqt-gclkaqwu (TRELEGY ELLIPTA) 100-62.5-25 mcg Inhale 1 Puff [...] (FLONASE) 50 mcg/actuation nasal spray Use 1 Hamburg in each nostril once daily. No medication [...] or any previous visit (from the past [id number] hour(s)). EKG: Assessment HTN (hypertension) Assessment: Managed [...] of difficult airway No abnormal airway history [id number] Score: Age: <65 Sex: Female Hypertension history: [...] 10:30 AM PAGER/CONTACT #: documented in this encounterPromedica Toledo Hospital04-25-2022 Miscellaneous Notes* Telephone Encounter - Isra [...] Monday, 03/02, at 0900 - routed to [employer] pool to make it legit. Please advise. documented in this encounterPromedica Toledo Hospital04-15-2022 Instructions* Patient Instructions* Nelsy Chávez APRN.CNP - 02/18/2022 1:18 PM EDT Healing as expected from surgery. You have a pinpoint area of suture just under the vaginal epithelium surface that may need more time to fully heal. Please call the office if you would like to try vaginal estrogen cream or with any questions/concerns. documented in this encounterPromedica Toledo Hospital04-15-2022 History of Present illness Narrative* Nelsy [...] no Pain: no Abnormal Vaginal Discharge: no STAND UP FORKLIFT OPERATOR HISTORY: Last pap: cannot remember; Last mammogram: She has never had a mammogram LMP: No LMP recorded. Patient has had a hysterectomy.; Menopause n/a: Menstrual history: NA; Deliveries: I have confirmed and edited as necessary, the PFSH obtained by others. Nelsy Chávez APRN.KWESI 4Th Grade Teacher offered: Patient declines. OBJECTIVE: There were no [...] if this helps. She is traveling to [place] to see her ailing father for two weeks and would like to wait for now to see if things resolve. She knows she can call the office if she changes her mind and would like to trial vaginal estrogen Nelsy Chávez APRN.KWESI documented in this encounterPromedica Toledo Hospital04-08-2022 History of Present illness Narrative* Flaca [...] 15 Flaca Bartholomew PT documented in this encounterPromedica Toledo Hospital04-05-2022 Nurse Note* Re Sierra MA - [...] Temperature: No Drains: No documented in this encounterPromedica Toledo Hospital04-05-2022 History of Present illness Narrative* Mary Obrien MD - 02/08/2022 2:40 PM EDT COLORECTAL SURGERY February 08, 2022 Mary Leal Chief Complaint: follow up History of Present Illness: Mary Ornelasgs is a 51 year old female [...] (FLONASE) 50 mcg/actuation nasal spray Use 1 Hamburg in each nostril once daily. carBAMazepine XR [...] THE LUNGS every 4 hours if needed rjxjphrarui-pjnhmbokb-cjxbzajy (TRELEGY ELLIPTA) 100-62.5-25 mcg Inhale 1 Puff [...] if she has return of symptoms after TAC/OAHN, her only surgery option at that point would be a permanent end ileostomy. We discussed the risks and benefits of surgery including injury to other structures, bleeding, infection, anastomotic leak, return to the OR, ileus, as well as the possibility of medical complications of surgery including DVT/PE, PNA, UT, stroke, and . The patient understands these risks and is in agreement with proceeding. Medical Decision Making: Data Reviewed: Tests & Documents Reviewed/ordered: Review of prior notes from myself, OR, Dr. Wang Review of prior operative reports I have discussed Mary Leal's treatment plan and/or results with the patient. Mary Obrien MD Colorectal Surgery documented in this encounterPromedica Toledo Hospital04-05-2022 History of Present illness Narrative* Magali Mitchell APRN.IMPLEMENTATION PROJECT MANAGER - 02/08/2022 11:04 AM EDT Female Pelvic [...] you received about pain medications helpful? Yes 4Th Grade Teacher offered:Patient declines OBJECTIVE: BP 113/76 Pulse 74 [...] 6 month Patient expressed understanding. Magali Mitchell APRN.CNP documented in this encounterPromedica Toledo Hospital03-29-2022 Miscellaneous Notes* Telephone Encounter - Steffi Ross LPN - 02/01/2022 11:08 AM EDT [facility] 06-10-21 Pharmacy and Rx request verified. Please file if appropriate. Thank you Steffi Ross LPN documented in this encounterPromedica Toledo Hospital03-28-2022 NoteHNO ID: [id number] Author: Newton Woodward PT Service: ? Author [...] untimed codes) : 40 Newton Woodward PT, [facility]03-28-2022 History of Present illness Narrative* Newton [...] (timed and untimed codes) : 40 Newton oWodward PT, DPT documented in this encounterPromedica Toledo Hospital03-21-2022 NoteHNO ID: [id number] Author: Newotn Woodward PT Service: ? Author Type: Physical Therapist Type: Progress Notes Filed: 01/24/2022 1:23 PM Note Text: Episode Visit Count: 2 Therapist That Will Oversee The Plan Of Care: [place] then transfer to [facility] Start of Care Date: 01/18/22 Onset Date: [...] untimed codes) : 45 Newton Woodward PT, [facility]03-15-2022 NoteHNO ID: [id number] Author: Jessi Isaacs, PT Service: ? Author Type: Physical Therapist Type: Progress Notes Filed: 01/18/2022 1:56 PM Note Text: Episode Visit Count: 1 Therapist That Will Oversee The Plan Of Care: [place] then transfer to [facility] Start of Care Date: 01/18/22 Onset [...] Planned: 8 Planned Treatment Interventions: Therapeutic exercise (85912);Neuromuscular re-education (03573);Manual therapy (02738);Therapeutic activities (02703);Self-long term management (41001);Patient/Family/Caregiver Education PLAN FOR NEXT VISIT: PFM dynamics; [...] function/quality of life. 52 (more content not included)...[facility] CenterPjemitlh69-47-1702 NoteHNO ID: [id number] Author: Moni Munguia RN Service: Care Management Author Type: Registered Nurse Type: Care Mgt Progress Note Filed: 12/27/2021 4:17 PM Note Text: CARE MANAGEMENT DISCHARGE NOTE SERVICE DATE: 12/27/2021 SERVICE TIME: 4:14 PM LOS: 3 days Admission Date: 12/24/2021 DISCHARGE ARRANGEMENT (list agency and phone number) Discharge Arrangement: Home with Home Health Provider Name: [address] CAREGIVER ASSESSMENT: HANDOFF COMMUNICATION: Handoff to: Primary Care Physician Primary Care Physician Name/Phone: Eliceo Gómez Jr [phone] TRANSPORTATION ARRANGEMENTS: Transportation Arrangements: N/A The Pt is accepted by [address] for new ostomy care. The SOC will be within 24 to 48 hrs. The pt will be contacted directly with the SOC. The Pt verbalized agreement with this dc plan. SIGNATURE: Moni Munguia RN PATIENT NAME: Mary Leal DATE: December 27, 2021 TIME: 4:14 PM PAGER/CONTACT #: [phone] [id number] NoteHNO ID: [id number] Author: Parish Celeste DO Service: Colorectal Author [...] - Pain and nausea control -> d/c SINGLE END SEWER - D/c entereg - Culturelle - Continue [...] 0659 12/27/21 07 - 12/28/21 0659 Shift 2055-7647 0055-1831 1743-0086 24 Hour Total 7951-0718 5915-5608 3808-9593 24 Hour Total INTAKE PO 60 60 PO 60 60 IV 2100 2100 Volume (mL) (lactated ringers iv infusion) 2099 2099 Shift Total 2160 2160 OUTPUT Urine 7034 441 8895 2300 200 200 Void (ml) 300 1000 1300 200 200 Output ( Indwelling Urinary Catheter 12/24/21 Call 16 Fr) 1000 1000 Emesis 0 0 Emesis (ml) 0 0 Ostomy 250 125 375 Ileostomy 1 250 125 375 # of BMs Number of BMs 0 x 0 x Shift Total 9372 597 8258 2675 200 200 Weight (kg) 82.1 82.1 82.1 82.1 82.1 82.1 82.1 82.1 Recent Labs 12/26/21 0755 12/25/21 0606 WBC -- 5.96 HB -- 11.6 HCT -- 35.2* PLT -- 271 NA 139 141 K 4.0 4.0 CHLOR 102 104 CO2 28 28 CREAT 0.62* 0.72 BUN 10 12 GLUC 71 91 CA 8.5 8.5 Parish Celeste DO General Surgery, PGY-4 [phone] After 6 pm and on the weekends please page [phone] 12-26-2021 NoteHNO ID: [id number] Author: Jenifer Ayala MD Service: Colorectal Author Type: Fellow Type: Progress Notes Filed: 12/26/2021 12:13 PM Note Text: GENERAL SURGERY PROGRESS NOTE Name: Mary Leal 12/26/2021 12:11 PM Interval Events: Patient doing well post-operatively. No acute events overnight. Tolerating CLD diet without nausea or vomiting. Stoma productive of bilious fluid + gas Pain well controlled with SINGLE END SEWER + oral pain medication (feels most relief from po oxycodone). Assessment and Plan: 51 year old female with pelvic organ prolapse and chronic constipation, likely slow transit but with possible component of pelvic outlet obstruction and with discordant testing. Patient underwent laparoscopic protopexy on 12/24/21 surgery was uneventful. Post-operative course has been uncompliacted. Pain control- Tylenol Gabapentin Toradol SINGLE END SEWER: Dilaudid, tegretol, klonopin, requip, trintellix, oxycodone Cardiac- [...] any questions or concerns page [facility] [phone] Objective Physical exam: BP 117/66 Pulse 77 [...] 0659 12/26/21 07 - 12/27/21 0659 Shift 2879-1545 4345-3104 2879-5158 24 Hour Total 7425-9625 8672-3017 0881-9355 24 Hour Total INTAKE PO 60 60 PO 60 60 IV 213 668 881 Volume (mL) (lactated ringers iv infusion) 213 668 881 Shift Total 273 668 941 OUTPUT Urine 801 424 3642 1000 Void (ml) 0 0 Output ( Indwelling Urinary Catheter 12/24/21 Call 16 Fr) 745 310 6274 1000 Emesis 0 0 Emesis (ml) 0 0 Ostomy 100 100 Ileostomy 1 100 100 # of BMs Number of BMs 0 x 0 x Shift Total 734 118 9872 1000 Weight (kg) 82.1 82.1 82.1 82.1 [...] Diagnosis Date Noted - Pelvic floor dysfunction 12/24/2021[facility] Center[facility]dj30-93-3609 NoteHNO ID: [id number] Author: Sonido Owen MD Service: Colorectal Author [...] been uncompliacted. Pain control- Tylenol Gabapentin Toradol SINGLE END SEWER: Dilaudid, tegretol, klonopin, requip, trintellix Cardiac- Vitals: [...] Owen MD General Surgery PGY 2 Pg [phone] For any questions or concerns page [facility] Blue [id number] Objective Physical exam: BP 111/61 Pulse 86 [...] 0659 12/25/21 07 - 12/26/21 0659 Shift 4186-7162 5831-1780 1497-9466 24 Hour Total 9900-0439 4782-7320 2523-6363 24 Hour Total INTAKE PO 240 120 360 PO 240 120 360 IV 3100 3100 Volume (mL) (lactated ringers iv infusion) 1800 1800 Volume (mL) (lactated ringers iv infusion) 1300 1300 Shift Total 3100 980 738 5622 OUTPUT Urine 200 678 259 7749 OR Urine Output 200 200 Output ( Indwelling Urinary Catheter 12/24/21 Call 16 Fr) 300 500 800 Emesis 0 0 0 Emesis (ml) 0 0 0 Ostomy 0 0 0 Ileostomy 1 0 0 0 # of BMs Number of BMs 0 x 0 x 0 x Blood 50 50 Estimated Blood loss 50 50 Shift Total 250 553 318 0017 Weight (kg) 82.1 82.1 82.1 82.1 82.1 [...] Diagnosis Date Noted - Pelvic floor dysfunction 12/24/2021[facility] CenterDifauzbv34-05-1489 NoteHNO ID: [id number] Author: Carmen Stanley APRN.COMPUTER SPECIALIST Service: Anesthesiology Author Type: Nurse General Assignment Reporter Type: Anesthesia Procedure Notes Filed: 12/24/2021 8:44 [...] December 24, 2021 TIME: 8:44 AM CSN: [id number] NoteHNO ID: [id number] Author: Carmen Stanley APRN.COMPUTER SPECIALIST Service: Anesthesiology Author Type: Nurse General Assignment Reporter Type: Anesthesia Procedure Notes Filed: 12/24/2021 8:44 AM Note Text: ANESTHESIOLOGY PROCEDURE NOTE Airway General Information Procedure Start Time/Medication Administration: 12/24/2021 8:22 AM Patient location during procedure: OR 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 Edited and approved by Dr. Annette Harris MD. [facility] Other 11-01-2021 Evaluation note* Encounter Date Diagnosis [...] note writ ten by Lupillo Amezquita MA, Choir Accompanist. Edited and approved by Dr. Annette Harris MD. [facility] Other 10-14-2021 Evaluation note* Encounter Date Diagnosis [...] no improvement in 2 to 3 days. [facility] Other 10-08-2021 Evaluation note* Encounter Date Diagnosis [...] Patient care instructions given in writting by [facility] Care At Home document [facility] Other 10-07-2021 Evaluation note* Encounter Date Diagnosis [...] Aug, Other chronic pain (ICD-10 - G89.29) [facility] Other 09-22-2021 Evaluation note* Encounter Date Diagnosis [...] Jul, Other chronic pain (ICD-10 - G89.29) [facility] Other 03-01-2021 Note [id number]:127[facility] 01-04-2021 NoteCystoscopy with Botox injection [...] if you have a fever over 100 degrees.[facility] 11-11-2020 NoteChief Complaint Pt is [...] BENSON, Dawna Feldman [address] [place] [address]- [phone] Additional Instructions: F/u in 1yr. Patient Education [...] deficit disorder Bipolar disorder (more content not included)...[facility] Comment on above:Result Comment: Electronically Signed By: Dawna Marmolejo MD\.br\Date and Time Signed: 11/11/2111:16 EST\.br\Electronically Co-Signed By: Christy Gill MA\.br\Date and Time Co-Signed: 11/11/20 12:07 [id number]:127[facility] CenterChief complaint Narrative - Reported* MARY LEAL is being seen for an initial evaluation of. * 52-year-old female seen in cardiology consultation at the request of her primary care physician forelevated troponin while in [facility] this past spring that was associated with a GI bleed/gastritis. * Patient recently underwent large bowel resection details of which are unknown and I suspect possibly consistent with ulcerative colitis but again unknown pathology. She had a diverting colostomy with3 anastomosis performed. While in [place] with her GI bleed and primarily gastric [...] * I believe minor troponin elevation in [place] was simply at small type II non- [place] troponin elevationrelated to inflammation and gastritis and [...] colectomy. She can follow-up as needed otherwise. [facility] 250 DO Work Phone: Evaluation note* Diagnosis Pelvic floor dysfunction- Primary Pelvic muscle wasting Lack of coordination Follow-up examination after colorectal surgery Follow-up examination, following other surgery [facility] Diagnosis Gastroesophageal reflux disease, unspecified whether esophagitis present [facility] Diagnosis Follow-up examination after colorectal surgery- Primary Follow-up examination, following other surgery [facility]* Diagnosis Post-operative state- Primary Other postprocedural status Yeast infection of the skin Candidiasis of skin and nails documented in this encounter [facility] note* Diagnosis Pelvic floor dysfunction- Primary Pelvic muscle wasting Lack of coordination Follow-up examination after colorectal surgery Follow-up examination, following other surgery documented in this encounter [facility] note* Diagnosis Postoperative state- Primary Other postprocedural status Attention to ileostomy (HCC) Attention to ileostomy documented in this encounter [facility] note* Diagnosis Preop examination- Primary Preoperative examination, unspecified Attention to ileostomy ([facility]) Attention to ileostomy Primary hypertension Unspecified essential hypertension Gastroparesis Gastroesophageal reflux disease, unspecified whether esophagitis present Mild persistent asthma without complication Unspecified asthma Bipolar 1 disorder (HCC) Bipolar I disorder, most recent episode (or current) unspecified Obesity (BMI 30.0-34.9) Obesity, unspecified Attention to ileostomy ([facility]) Attention to ileostomy documented in this encounter [facility] note* Diagnosis Gastroesophageal reflux disease, unspecified whether esophagitis present Chronic idiopathic constipation Unspecified constipation Attention to ileostomy ([facility]) Attention to ileostomy documented in this encounter [facility] note* Diagnosis Follow-up examination after colorectal surgery- Primary Follow-up examination, following other surgery Pelvic floor dysfunction Pelvic muscle wasting documented in this encounter [facility] noteNo [facility] Other Evaluation noteNoSureBooks [employer] Other evaluation note* Diagnosis Follow-up examination after colorectal surgery- Primary Follow-up examination, following other surgery Periumbilical abdominal pain Abdominal pain, periumbilic Outlet dysfunction constipation Colonic inertia Other functional disorders of intestine documented in this encounter [facility] noteNo assessment information [facility] Work Phone: Evaluikrni note* Diagnosis Gas bloat syndrome- Primary Chronic idiopathic constipation Unspecified constipation Gastroparesis documented in this encounter [facility] note* Diagnosis Gastroesophageal reflux disease, unspecified whether esophagitis present documented in this encounter [facility] note* Diagnosis Gastroparesis- Primary documented in this encounter [facility] note* Diagnosis CHUCKIE (obstructive sleep apnea)- Primary Obstructive sleep apnea (adult) (pediatric) documented in this encounter [facility] note* Diagnosis Pre-op exam- Primary Preoperative examination, unspecified Primary hypertension Unspecified essential hypertension Mild persistent asthma without complication Unspecified asthma Gastroparesis CHUCKIE (obstructive sleep apnea) Obstructive sleep apnea (adult) (pediatric) [facility] Diagnosis CHUCKIE (obstructive sleep apnea)- Primary Obstructive sleep apnea (adult) (pediatric) [facility]* Diagnosis Chronic idiopathic constipation- Primary Unspecified constipation Nausea Nausea alone [facility]* Diagnosis Gastroesophageal reflux disease with esophagitis without hemorrhage- Primary documented in this encounter [facility] note* Diagnosis Colonic inertia- Primary Other functional disorders of intestine Pelvic floor dysfunction Pelvic muscle wasting Nausea Nausea alone Gastroparesis documented in this encounter [facility] note* Diagnosis Pylorospasm- Primary Functional dyspepsia Dyspepsia and other specified disorders of function of stomach Gastroesophageal reflux disease with esophagitis without hemorrhage documented in this encounter [facility] note* Diagnosis Gastroesophageal reflux disease, unspecified whether esophagitis present [facility]* Diagnosis CHUCKIE (obstructive sleep apnea)- Primary Obstructive sleep apnea (adult) (pediatric) [facility]* Diagnosis Pylorospasm- Primary Functional dyspepsia Dyspepsia and other specified disorders of function of stomach Gastroesophageal reflux disease with esophagitis without hemorrhage documented in this encounter [facility] note* Diagnosis Gastroparesis- Primary documented in this encounter [facility] note* Diagnosis Preop examination- Primary Preoperative examination, unspecified Nausea Nausea alone CHUCKIE (obstructive sleep apnea) Obstructive sleep apnea (adult) (pediatric) Mild persistent asthma without complication Unspecified asthma Gastroesophageal reflux disease, unspecified whether esophagitis present Gastroparesis documented in this encounter [facility] note* Diagnosis 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 Personal history of other diseases of digestive system [facility]* Diagnosis Gastroesophageal reflux disease, unspecified whether esophagitis present documented in this encounter [facility] note* Diagnosis Incomplete bladder emptying- Primary Constipation, unspecified constipation type Urinary urgency Urgency of urination Urinary frequency Nocturia documented in this encounter [facility] note* Diagnosis Upper abdominal pain- Primary Abdominal pain, other specified site [facility] Diagnosis Burning with urination- Primary Dysuria [facility]* Diagnosis Ashley vaginitis Candidiasis of vulva and vagina [facility] Diagnosis CHUCKIE (obstructive sleep apnea)- Primary Obstructive sleep apnea (adult) (pediatric) Pre-op testing- Primary Unspecified pre-operative examination CHUCKIE (obstructive sleep apnea) Obstructive sleep apnea (adult) (pediatric) documented in this encounter [facility] Diagnosis CHUCKIE (obstructive sleep apnea)- Primary Obstructive sleep apnea (adult) (pediatric) documented in this encounter [facility] [facility] Narrative - Reported* Type Description Date [...] see above list Hospitalization History respiratory 02/2020 [facility] Other Hiswlgc general Narrative - ReportedNoAdore Me Other history general Narrative - Reported* Type [...] see above list Hospitalization History respiratory 02/2020 [facility] Other InstructionsNot on filedocumented in this encounter [facility]QuantumInstructionsNot on filedocumented in this encounter [facility] SystemVisual Threat SystemReason for referral (narrative)* Outpatient Procedure (Routine) - Pending Review Specialty Diagnoses / Procedures Referred By Gustavo salazar Referred To Contact [facility] Diagnoses Gastroparesis Procedures CAPSULE ENDOSCOPY SMART Masters, Isra S, DO [facility] [address] [place] [address] [place] [phone] Referral ID Status Reason Start Date Expiration Date Visits Requested Visits Authorized [id number] Pending Review Auto-Generat ed Referral 10/11/2022 10/11/2023 1 1 [facility] Outpatient Procedure (Routine) - Pending Review Specialty Diagnoses / Procedures Referred By Contac t Referred To Contact [facility] Diagnoses Chronic idiopathic constipation Procedures SIGMOIDOSCOPY SIGMOIDOSCOPY FLX DX W/COLLJ SPEC BR/WA IF PFRMD Isra Masters DO [facility] [address] [place] [id number] [place] [id number] Referral ID Status Reason Start Date Expiration Date Visits Requested Visits Authorized [id number] Pending Review Auto-Generat ed Referral 11/30/2022 11/30/2023 1 1 [facility] (n[facility]ative)* Outpatient Procedure (Routine) - Pending Review Specialty Diagnoses / Procedures Referred By Contac t Referred To Contact [facility] Diagnoses Gastroparesis Procedures EGD - THERAPEUTIC, EUS, OR TUBE INTERVENTIONS ESOPHAGOGASTRODUODENOSC OPY TRANSORAL DIAGNOSTIC STOMACH SURGERY PROCEDURE [place] [address] [place] [phone] Referral ID Status Reason Start Date Expiration Date Visits Requested Visits Authorized [id number] Pending Review Auto-Generat ed Referral 01/11/2023 01/12/2024 1 1 [facility] (n[facility]ative[facility] Outpatient Procedure (Routine) - Pending Review Specialty Diagnoses / Procedures Referred By Gustavo t Referred To Contact [facility] Diagnoses Incomplete bladder emptying Urinary urgency Urinary frequency Nocturia Procedures URODYNAMICS WHI COMPLX CYSTOMETRO W/VOID PRESS&URETHRAL PROFILE Nelsy Chávez APRN.IMPLEMENTATION PROJECT MANAGER [address] [place] [address] [facility] [address] [place] [address] Referral ID Status Reason Start Date Expiration Date Visits Requested Visits Authorized [id number] Pending Review Auto-Generat ed Referral 07/31/2023 07/30/2024 1 1 [facility] (narrative)* Consultation (Routine) - Open Specialty Diagnoses / Procedures Referred By Gustavo salazar Referred To Contact [facility] Diagnoses Upper abdominal pain Lev Ritter APRN IMPLEMENTATION PROJECT MANAGER [address] [place] [address] [facility] [address] [facility] [place] [address] Referral ID Status Reason Start Date Expiration Date Visits Re quested Visits Authorized [id number] Open 08/12/2023 09/12/2024 1 1 [facility] NarrativeDISCUSS OTHER OPTIONS PRIOR TO [facility] Other Reason for visit NarrativeRECHECK CERVICAL PAIN DISCUSS PROCEDURENort [facility] Other Reason for visit Narrative* Outpatient Procedure (Routine) - Closed Specialty Diagnoses / Procedures Referred By Gustavo t Referred To Contact [facility] Diagnoses Gastroparesis Procedures GI TRANSIT & PRES RAVINDER WIRELESS CAPSULE W/INTERP Isra Masters DO [facility] [address] [place] [address] [facility] [address] [place] [address] Referral ID Status Reason Start Date Expiration Date Visits Re quested Visits Authorized [id number] Closed 11/08/2022 11/05/2023 1 1 [facility] Summary Purpose Family History No Family [...] FoundDocuments on File Type Date Recorded 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 Advance Directive(s) 10/13/2021 4:09 PM Advance Directive(s) 10/14/2020 8:14 AM Documents on File Type Date Recorded 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 Advance Directive(s) 10/13/2021 4:09 PM Advance Directive(s) 10/14/2020 8:14 AM Documents on File Type Date Recorded 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 Advance Directive(s) 03/21/2022 1:42 PM [...] unspecified whether esophagitis present Isra Masters DO [address] [place] [address] Referral ID Status Reason Start Date Expiration Date Visits Re quested Visits Authorized [id number] Closed 1 1 Referral ID Status Reason Start Date Expiration Date V isits Requested Visits Authorized [id number] Pending Review 1 1 Specialty Diagnoses / Procedures Referred By Gustavo t Referred To Contact CT IMAGING Diagnoses Periumbilical abdominal pain Procedures CT ABD/PEL W IVCON CT ABD & PELVIS W/[place] [address] [place] [address] Ct Imaging Referral ID Status Reason Start Date Expiration Date Visits Requested Visits Authorized [id number] Pending Review Auto-Generat ed Referral 08/02/2022 08/25/2023 1 1 Reason BILATERAL SHOULDER P AIN Diagnosis 1 Shoulder pain (M25.5 19) Referral Organization [facility] Referring Provider First Name Annette Referring Provider Last Name Steven Referring Provider Specialty Pain Medici ne Referred Organization [facility] Referred Provider Annette Cartagena Referred Address [address] [facility] [place],[address] Referred Provider Specialty Orthopedic S urgery Referral Priority Routine Referral Appointment Date 2022-10-10 General Notes Kim Manley 10:01:46 AM >patient already scheduled with [facility] 10/10/22 at 1:30pm. Sending p2p at this time Referral ID Status Reason Start Date Expiration Date Visits Re quested Visits Authorized [id number] Closed 1 1 Chief Complaint and Reason [...] weakness, dizziness, diaphoresis with recent work-up that [facility] emergency room. Reportedly her troponins are [...] of which are currently being investigated at [facility] (now her fourth GI specialist). * Last year while in [place] she had similar issues with elevated troponins in the ED and underwent heart catheterization that did not reveal any specific significant disease, details of the discharge summary are reviewed * She underwent recent stress perfusion imaging at [facility], the report is reviewed, she hasno [...] disease, will investigate the troponin rise at [facility] however I believe this is likely a non- [place] troponin elevation, likely associated withunderlying inflammatory bowel disease. We will follow-up on a as needed basis unless further objective data come to light * Patient is a 53-year-old female who returns at the request of her primary care physician with episodic chest discomfort associated weakness, dizziness, diaphoresis with recent work-up that [facility] emergency room. Reportedly her troponins are [...] of which are currently being investigated at [facility] (now her fourth GI specialist). * Last year while in [place] she had similar issues with elevated troponins in the ED and underwent heart catheterization that did not reveal any specific significant disease, details of the discharge summary are reviewed * She [facility] [facility], the report is reviewed, she hasno [...] disease, will investigate the troponin rise at [facility] however I believe this is likely a non- [place] troponin elevation, likely associated withunderlying inflammatory bowel disease. We will follow-up on a as needed basis unless further objective data come to light Additional Source Comments INFORMATION SOURCE (unrecogn ized section and content) DATE CREATED AUTHOR 07/08/2021 [facility] DATE CREATED AUTHOR AUTHOR'S ORGANIZ ATION 11/18/2021 [facility] DATE CREATED AUTHOR AUTHOR'S ORGANIZ ATION 02/01/2022 [facility] DATE CREATED AUTHOR AUTHOR'S ORGANIZ ATION 04/05/2022 [facility] DATE CREATED AUTHOR AUTHOR'S ORGANIZ ATION 09/29/2022 [facility] DATE CREATED AUTHOR AUTHOR'S ORGANIZ ATION 12/09/2022 [facility] DATE CREATED AUTHOR AUTHOR'S ORGANIZ ATION 04/16/2023 [facility] DATE CREATED AUTHOR AUTHOR'S ORGANIZ ATION 06/14/2023 [facility] DATE CREATED AUTHOR AUTHOR'S ORGANIZ ATION 08/14/2023 [facility] DATE CREATED AUTHOR AUTHOR'S ORGANIZ ATION 09/02/2023 [facility] DATE CREATED AUTHOR AUTHOR'S ORGANIZ ATION 10/27/2023 [facility] DATE CREATED AUTHOR AUTHOR'S ORGANIZ ATION 12/02/2023 [facility] DATE CREATED AUTHOR AUTHOR'S ORGANIZ ATION 12/06/2023 [facility] DATE CREATED AUTHOR AUTHOR'S ORGANIZ ATION 12/15/[address] [facility] DATE CREATED AUTHOR AUTHOR'S ORGANIZ ATION 12/26/2023 [facility] DATE CREATED AUTHOR AUTHOR'S ORGANIZ ATION 01/06/2024 [facility] DATE CREATED AUTHOR AUTHOR'S ORGANIZ ATION 01/11/2024 [facility] Source Comments (unrecognize d section and content) In the event this informatio n is protected by the Federal Confidentiality of Alcohol and Drug Abuse Patient Records regulations: The Federal rules restrict any use of the information to criminally investigate or prosecute any alcohol or drug abuse patient.[facility] the event this information is protected by the Federal Confidentiality of Alcohol and Drug Abuse Patient Records regulations: The Federal rules restrict any use of the information to criminally investigate or prosecute any alcohol or drug abuse patient.[facility] HospitalIn the event this information is protected by the Federal Confidentiality of Alcohol and Drug Abuse Patient Records regulations: The Federal rules restrict any use of the information to criminally investigate or prosecute any alcohol or drug abuse patient.[facility] HospitalIn the event this information is protected by the Federal Confidentiality of Alcohol and Drug Abuse Patient Records regulations: The Federal rules restrict any use of the information to criminally investigate or prosecute any alcohol or drug abuse patient.[facility] HospitalIn the event this information is protected by the Federal Confidentiality of Alcohol and Drug Abuse Patient Records regulations: The Federal rules restrict any use of the information to criminally investigate or prosecute any alcohol or drug abuse patient.[facility] HospitalIn the event this information is protected by the Federal Confidentiality of Alcohol and Drug Abuse Patient Records regulations: The Federal rules restrict any use of the information to criminally investigate or prosecute any alcohol or drug abuse patient.[facility] HospitalIn the event this information is protected by the Federal Confidentiality of Alcohol and Drug Abuse Patient Records regulations: The Federal rules restrict any use of the information to criminally investigate or prosecute any alcohol or drug abuse patient.[facility] HospitalIn the event this information is protected by the Federal Confidentiality of Alcohol and Drug Abuse Patient Records regulations: The Federal rules restrict any use of the information to criminally investigate or prosecute any alcohol or drug abuse patient.[facility] HospitalIn the event this information is protected by the Federal Confidentiality of Alcohol and Drug Abuse Patient Records regulations: The Federal rules restrict any use of the information to criminally investigate or prosecute any alcohol or drug abuse patient.[facility] HospitalIn the event this information is protected by the Federal Confidentiality of Alcohol and Drug Abuse Patient Records regulations: The Federal rules restrict any use of the information to criminally investigate or prosecute any alcohol or drug abuse patient.[facility] HospitalIn the event this information is protected by the Federal Confidentiality of Alcohol and Drug Abuse Patient Records regulations: The Federal rules restrict any use of the information to criminally investigate or prosecute any alcohol or drug abuse patient.[facility] HospitalIn the event this information is protected by the Federal Confidentiality of Alcohol and Drug Abuse Patient Records regulations: The Federal rules restrict any use of the information to criminally investigate or prosecute any alcohol or drug abuse patient.[facility] HospitalIn the event this information is protected by the Federal Confidentiality of Alcohol and Drug Abuse Patient Records regulations: The Federal rules restrict any use of the information to criminally investigate or prosecute any alcohol or drug abuse patient.[facility] HospitalIn the event this information is protected by the Federal Confidentiality of Alcohol and Drug Abuse Patient Records regulations: The Federal rules restrict any use of the information to criminally investigate or prosecute any alcohol or drug abuse patient.[facility] HospitalIn the event this information is protected by the Federal Confidentiality of Alcohol and Drug Abuse Patient Records regulations: The Federal rules restrict any use of the information to criminally investigate or prosecute any alcohol or drug abuse patient.[facility] HospitalIn the event this information is protected by the Federal Confidentiality of Alcohol and Drug Abuse Patient Records regulations: The Federal rules restrict any use of the information to criminally investigate or prosecute any alcohol or drug abuse patient.[facility] HospitalIn the event this information is protected by the Federal Confidentiality of Alcohol and Drug Abuse Patient Records regulations: The Federal rules restrict any use of the information to criminally investigate or prosecute any alcohol or drug abuse patient.[facility] HospitalIn the event this information is protected by the Federal Confidentiality of Alcohol and Drug Abuse Patient Records regulations: The Federal rules restrict any use of the information to criminally investigate or prosecute any alcohol or drug abuse patient.[facility] HospitalIn the event this information is protected by the Federal Confidentiality of Alcohol and Drug Abuse Patient Records regulations: The Federal rules restrict any use of the information to criminally investigate or prosecute any alcohol or drug abuse patient.[facility] HospitalIn the event this information is protected by the Federal Confidentiality of Alcohol and Drug Abuse Patient Records regulations: The Federal rules restrict any use of the information to criminally investigate or prosecute any alcohol or drug abuse patient.[facility] HospitalIn the event this information is protected by the Federal Confidentiality of Alcohol and Drug Abuse Patient Records regulations: The Federal rules restrict any use of the information to criminally investigate or prosecute any alcohol or drug abuse patient.[facility] HospitalIn the event this information is protected by the Federal Confidentiality of Alcohol and Drug Abuse Patient Records regulations: The Federal rules restrict any use of the information to criminally investigate or prosecute any alcohol or drug abuse patient.[facility] HospitalIn the event this information is protected by the Federal Confidentiality of Alcohol and Drug Abuse Patient Records regulations: The Federal rules restrict any use of the information to criminally investigate or prosecute any alcohol or drug abuse patient.[facility] HospitalIn the event this information is protected by the Federal Confidentiality of Alcohol and Drug Abuse Patient Records regulations: The Federal rules restrict any use of the information to criminally investigate or prosecute any alcohol or drug abuse patient.[facility] HospitalIn the event this information is protected by the Federal Confidentiality of Alcohol and Drug Abuse Patient Records regulations: The Federal rules restrict any use of the information to criminally investigate or prosecute any alcohol or drug abuse patient.[facility] HospitalIn the event this information is protected by the Federal Confidentiality of Alcohol and Drug Abuse Patient Records regulations: The Federal rules restrict any use of the information to criminally investigate or prosecute any alcohol or drug abuse patient.[facility] HospitalIn the event this information is protected by the Federal Confidentiality of Alcohol and Drug Abuse Patient Records regulations: The Federal rules restrict any use of the information to criminally investigate or prosecute any alcohol or drug abuse patient.[facility] HospitalIn the event this information is protected by the Federal Confidentiality of Alcohol and Drug Abuse Patient Records regulations: The Federal rules restrict any use of the information to criminally investigate or prosecute any alcohol or drug abuse patient.[facility] HospitalIn the event this information is protected by the Federal Confidentiality of Alcohol and Drug Abuse Patient Records regulations: The Federal rules restrict any use of the information to criminally investigate or prosecute any alcohol or drug abuse patient.[facility] HospitalIn the event this information is protected by the Federal Confidentiality of Alcohol and Drug Abuse Patient Records regulations: The Federal rules restrict any use of the information to criminally investigate or prosecute any alcohol or drug abuse patient.[facility] HospitalIn the event this information is protected by the Federal Confidentiality of Alcohol and Drug Abuse Patient Records regulations: The Federal rules restrict any use of the information to criminally investigate or prosecute any alcohol or drug abuse patient.[facility] HospitalIn the event this information is protected by the Federal Confidentiality of Alcohol and Drug Abuse Patient Records regulations: The Federal rules restrict any use of the information to criminally investigate or prosecute any alcohol or drug abuse patient.[facility] HospitalIn the event this information is protected by the Federal Confidentiality of Alcohol and Drug Abuse Patient Records regulations: The Federal rules restrict any use of the information to criminally investigate or prosecute any alcohol or drug abuse patient.[facility] HospitalIn the event this information is protected by the Federal Confidentiality of Alcohol and Drug Abuse Patient Records regulations: The Federal rules restrict any use of the information to criminally investigate or prosecute any alcohol or drug abuse patient.[facility] HospitalIn the event this information is protected by the Federal Confidentiality of Alcohol and Drug Abuse Patient Records regulations: The Federal rules restrict any use of the information to criminally investigate or prosecute any alcohol or drug abuse patient.[facility] HospitalIn the event this information is protected by the Federal Confidentiality of Alcohol and Drug Abuse Patient Records regulations: The Federal rules restrict any use of the information to criminally investigate or prosecute any alcohol or drug abuse patient.[facility] HospitalIn the event this information is protected by the Federal Confidentiality of Alcohol and Drug Abuse Patient Records regulations: The Federal rules restrict any use of the information to criminally investigate or prosecute any alcohol or drug abuse patient.[facility] HospitalIn the event this information is protected by the Federal Confidentiality of Alcohol and Drug Abuse Patient Records regulations: The Federal rules restrict any use of the information to criminally investigate or prosecute any alcohol or drug abuse patient.[facility] HospitalIn the event this information is protected by the Federal Confidentiality of Alcohol and Drug Abuse Patient Records regulations: The Federal rules restrict any use of the information to criminally investigate or prosecute any alcohol or drug abuse patient.[facility] HospitalIn the event this information is protected by the Federal Confidentiality of Alcohol and Drug Abuse Patient Records regulations: The Federal rules restrict any use of the information to criminally investigate or prosecute any alcohol or drug abuse patient.[facility] HospitalIn the event this information is protected by the Federal Confidentiality of Alcohol and Drug Abuse Patient Records regulations: The Federal rules restrict any use of the information to criminally investigate or prosecute any alcohol or drug abuse patient.[facility] HospitalIn the event this information is protected by the Federal Confidentiality of Alcohol and Drug Abuse Patient Records regulations: The Federal rules restrict any use of the information to criminally investigate or prosecute any alcohol or drug abuse patient.[facility] HospitalIn the event this information is protected [...] or prosecute any alcohol or drug abuse patient.[facility] HospitalIn the event this information is protected by the Federal Confidentiality of Alcohol and Drug Abuse Patient Records regulations: The Federal rules restrict any use of the information to criminally investigate or prosecute any alcohol or drug abuse patient.[facility] HospitalIn the event this information is protected by the Federal Confidentiality of Alcohol and Drug Abuse Patient Records regulations: The Federal rules restrict any use of the information to criminally investigate or prosecute any alcohol or drug abuse patient.[facility] HospitalIn the event this information is protected by the Federal Confidentiality of Alcohol and Drug Abuse Patient Records regulations: The Federal rules restrict any use of the information to criminally investigate or prosecute any alcohol or drug abuse patient.[facility] HospitalIn the event this information is protected by the Federal Confidentiality of Alcohol and Drug Abuse Patient Records regulations: The Federal rules restrict any use of the information to criminally investigate or prosecute any alcohol or drug abuse patient.[facility] HospitalIn the event this information is protected by the Federal Confidentiality of Alcohol and Drug Abuse Patient Records regulations: The Federal rules restrict any use of the information to criminally investigate or prosecute any alcohol or drug abuse patient.[facility] HospitalIn the event this information is protected by the Federal Confidentiality of Alcohol and Drug Abuse Patient Records regulations: The Federal rules restrict any use of the information to criminally investigate or prosecute any alcohol or drug abuse patient.[facility] HospitalIn the event this information is protected by the Federal Confidentiality of Alcohol and Drug Abuse Patient Records regulations: The Federal rules restrict any use of the information to criminally investigate or prosecute any alcohol or drug abuse patient.[facility] HospitalIn the event this information is protected by the Federal Confidentiality of Alcohol and Drug Abuse Patient Records regulations: The Federal rules restrict any use of the information to criminally investigate or prosecute any alcohol or drug abuse patient.[facility] HospitalIn the event this information is protected by the Federal Confidentiality of Alcohol and Drug Abuse Patient Records regulations: The Federal rules restrict any use of the information to criminally investigate or prosecute any alcohol or drug abuse patient.[facility] HospitalIn the event this information is protected by the Federal Confidentiality of Alcohol and Drug Abuse Patient Records regulations: The Federal rules restrict any use of the information to criminally investigate or prosecute any alcohol or drug abuse patient.[facility] HospitalIn the event this information is protected by the Federal Confidentiality of Alcohol and Drug Abuse Patient Records regulations: The Federal rules restrict any use of the information to criminally investigate or prosecute any alcohol or drug abuse patient.[facility] HospitalIn the event this information is protected by the Federal Confidentiality of Alcohol and Drug Abuse Patient Records regulations: The Federal rules restrict any use of the information to criminally investigate or prosecute any alcohol or drug abuse patient.[facility] HospitalIn the event this information is protected by the Federal Confidentiality of Alcohol and Drug Abuse Patient Records regulations: The Federal rules restrict any use of the information to criminally investigate or prosecute any alcohol or drug abuse patient.[facility] HospitalIn the event this information is protected by the Federal Confidentiality of Alcohol and Drug Abuse Patient Records regulations: The Federal rules restrict any use of the information to criminally investigate or prosecute any alcohol or drug abuse patient.[facility] HospitalIn the event this information is protected by the Federal Confidentiality of Alcohol and Drug Abuse Patient Records regulations: The Federal rules restrict any use of the information to criminally investigate or prosecute any alcohol or drug abuse patient.[facility] HospitalIn the event this information is protected by the Federal Confidentiality of Alcohol and Drug Abuse Patient Records regulations: The Federal rules restrict any use of the information to criminally investigate or prosecute any alcohol or drug abuse patient.[facility] HospitalIn the event this information is protected by the Federal Confidentiality of Alcohol and Drug Abuse Patient Records regulations: The Federal rules restrict any use of the information to criminally investigate or prosecute any alcohol or drug abuse patient.[facility] HospitalIn the event this information is protected by the Federal Confidentiality of Alcohol and Drug Abuse Patient Records regulations: The Federal rules restrict any use of the information to criminally investigate or prosecute any alcohol or drug abuse patient.[facility] HospitalIn the event this information is protected by the Federal Confidentiality of Alcohol and Drug Abuse Patient Records regulations: The Federal rules restrict any use of the information to criminally investigate or prosecute any alcohol or drug abuse patient.[facility] HospitalIn the event this information is protected by the Federal Confidentiality of Alcohol and Drug Abuse Patient Records regulations: The Federal rules restrict any use of the information to criminally investigate or prosecute any alcohol or drug abuse patient.[facility] HospitalIn the event this information is protected by the Federal Confidentiality of Alcohol and Drug Abuse Patient Records regulations: The Federal rules restrict any use of the information to criminally investigate or prosecute any alcohol or drug abuse patient.[facility] HospitalIn the event this information is protected by the Federal Confidentiality of Alcohol and Drug Abuse Patient Records regulations: The Federal rules restrict any use of the information to criminally investigate or prosecute any alcohol or drug abuse patient.[facility] HospitalIn the event this information is protected by the Federal Confidentiality of Alcohol and Drug Abuse Patient Records regulations: The Federal rules restrict any use of the information to criminally investigate or prosecute any alcohol or drug abuse patient.[facility] HospitalIn the event this information is protected by the Federal Confidentiality of Alcohol and Drug Abuse Patient Records regulations: The Federal rules restrict any use of the information to criminally investigate or prosecute any alcohol or drug abuse patient.[facility] HospitalIn the event this information is protected by the Federal Confidentiality of Alcohol and Drug Abuse Patient Records regulations: The Federal rules restrict any use of the information to criminally investigate or prosecute any alcohol or drug abuse patient.[facility] HospitalIn the event this information is protected by the Federal Confidentiality of Alcohol and Drug Abuse Patient Records regulations: The Federal rules restrict any use of the information to criminally investigate or prosecute any alcohol or drug abuse patient.[facility] HospitalIn the event this information is protected by the Federal Confidentiality of Alcohol and Drug Abuse Patient Records regulations: The Federal rules restrict any use of the information to criminally investigate or prosecute any alcohol or drug abuse patient.[facility] HospitalIn the event this information is protected by the Federal Confidentiality of Alcohol and Drug Abuse Patient Records regulations: The Federal rules restrict any use of the information to criminally investigate or prosecute any alcohol or drug abuse patient.[facility] HospitalIn the event this information is protected by the Federal Confidentiality of Alcohol and Drug Abuse Patient Records regulations: The Federal rules restrict any use of the information to criminally investigate or prosecute any alcohol or drug abuse patient.[facility] HospitalIn the event this information is protected by the Federal Confidentiality of Alcohol and Drug Abuse Patient Records regulations: The Federal rules restrict any use of the information to criminally investigate or prosecute any alcohol or drug abuse patient.[facility] HospitalIn the event this information is protected by the Federal Confidentiality of Alcohol and Drug Abuse Patient Records regulations: The Federal rules restrict any use of the information to criminally investigate or prosecute any alcohol or drug abuse patient.[facility] HospitalIn the event this information is protected by the Federal Confidentiality of Alcohol and Drug Abuse Patient Records regulations: The Federal rules restrict any use of the information to criminally investigate or prosecute any alcohol or drug abuse patient.[facility] HospitalIn the event this information is protected by the Federal Confidentiality of Alcohol and Drug Abuse Patient Records regulations: The Federal rules restrict any use of the information to criminally investigate or prosecute any alcohol or drug abuse patient.[facility] HospitalIn the event this information is protected by the Federal Confidentiality of Alcohol and Drug Abuse Patient Records regulations: The Federal rules restrict any use of the information to criminally investigate or prosecute any alcohol or drug abuse patient.[facility] Reason for Visit (unrecogniz ed section and content) Reason Comments Physical Therapy Specialty Diagnoses / Procedures Referred By Contdestiny t Referred To Contact [facility] Diagnoses Follow-up examination after colorectal surgery Procedures CONSULT TO PHYSICAL THERAPY PHYSICAL THERAPY EVALUATION HIGH COMPLEX [address] [place] [address] [place] [address] [facility] [place] [address] [place] [address] Referral ID Status Reason Start Date Expiration Date Visits Requested Visits Authorized [id number] Authorized Auto-Generat ed Referral 01/04/2022 11/05/2022 30 30 Reason Comments Refill Request [email or web address] Reason Comments Established Patient Follow-Up Reason Comments Post Op Reason Comments Established Patient Reason Comments Appointment for script refill Reason Comments Gastroparesis Reason Comments Manager Information - Other Reason Comments Medication 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 PA [...] ESOPHAGUS DOUBLE [place] [address] Xr Imaging Referral ID Status Reason Start Date Expiration Date V isits Requested Visits Authorized [id number] Closed Auto-Generate d Referral 11/17/2022 12/17/2023 1 [...] ABD & PEL[place] W/[place] [address] [place] [address] [address] Imaging Referral ID Status Reason Start Date Expiration Date V isits Requested Visits Authorized [id number] Closed Auto-Generate d Referral 07/28/2022 11/05/2022 2 2 Reason Comments Urinary Retention Reason Comments Abdominal Pain Reason Comments Med Change Request Reason Comments Question Reason Comments Post-op Inspire Implant Care Teams (unrecognized sec tion and content) Team Status: Active Member Role Status Dates Shannon Gómez DO Primary Care Provider Active Team Status: Inactive Member Role Status Dates Shannon Gómez DO Primary Care Provider Active Niecy Duron PA-C Attending Provider Active Strategic Alliances Manager Relationship 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 [address] [place] [address] PCP - General Family Practice 10/14/20 Strategic Alliances Manager Relationship 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 [address] [place] [address] PCP - General Family Practice 10/14/20 Strategic Alliances Manager Relationship 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 [address] [place] [address] PCP - General Family Practice 10/14/20 Strategic Alliances Manager Relationship 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 [address] [place] [address] PCP - General Family Practice 10/14/20 Strategic Alliances Manager Relationship Specialty Start Date End Date Dalia Eliceo Lugo Jr. [address] [place] [address] PCP - General Family Practice 10/14/20 Strategic Alliances Manager Relationship Specialty Start Date End Date Eliceo Gómez [address] [place] [address] PCP - General Family Practice 10/14/20 Gwendolyn Stroud [address] [place] [address] Family Practice 03/14/22 Strategic Alliances Manager Relationship Specialty Start Date End Date Eliceo Gómez [address] [place] [address] PCP - General Family Practice 10/14/20 Gwendolyn Stroud [address] [place] [address] Family Practice 03/14/22 Strategic Alliances Manager Relationship Specialty Start Date End Date DaliaEliceo Jr. [address] [place] [address] PCP - General Family Practice 10/14/20 Gwendolyn Stroud [address] [place] [address] Family Practice 03/14/22 Strategic Alliances Manager Relationship Specialty Start Date End Date HernandezEliceo randolph Jr. [address] [place] [address] PCP - General Family Practice 10/14/20 Gwendolyn Stroud [address] [place] [address] Family Practice 03/14/22 Strategic Alliances Manager Relationship Specialty Start Date End Date StephonEliceo ahuja Jr. [address] [place] [address] PCP - General Family Practice 10/14/20 Gwendolyn Stroud [address] [place] [address] Family Practice 03/14/22 Strategic Alliances Manager Relationship 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 [address] [place] [address] PCP - General Family Practice 10/14/20 Gwendolyn Stroud [address] [place] [address] Family Practice 03/14/22 Strategic Alliances Manager Relationship 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 [address] [place] [address] PCP - General Family Practice 10/14/20 Gwendolyn Stroud, IMPLEMENTATION PROJECT MANAGER Family Practice 03/14/22 Strategic Alliances Manager Relationship 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 [address] [place] [address] PCP - General Family Practice 10/14/20 Gwendolyn Stroud, IMPLEMENTATION PROJECT MANAGER Family Practice 03/14/22 Strategic Alliances Manager Relationship 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 [address] [place] [address] PCP - General Family Practice 10/14/20 Gwendolyn Stroud, IMPLEMENTATION PROJECT MANAGER Family Practice 03/14/22 Strategic Alliances Manager Relationship 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 [address] [place] [address] PCP - General Family Practice 10/14/20 Gwendolyn Stroud, IMPLEMENTATION PROJECT MANAGER Family Practice 03/14/22 Strategic Alliances Manager Relationship 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 [address] [place] [address] PCP - General Family Medicine 10/14/20 Gwendolyn Stroud, IMPLEMENTATION PROJECT MANAGER Family Medicine 03/14/22 Strategic Alliances Manager Relationship 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 [address] [place] [address] PCP - General Family Medicine 10/14/20 Gwendolyn Stroud, IMPLEMENTATION PROJECT MANAGER Family Medicine 03/14/22 Strategic Alliances Manager Relationship 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 [address] [place] [address] PCP - General Family Medicine 10/14/20 Gwendolyn Stroud, IMPLEMENTATION PROJECT MANAGER Family Medicine 03/14/22 Strategic Alliances Manager Relationship 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 [address] [place] [address] PCP - General Family Medicine 10/14/20 Gwendolyn Stroud, IMPLEMENTATION PROJECT MANAGER Family Medicine 03/14/22 Team Status: Inactive Member Role Status Dates Shannon Gómez DO Primary Care Provider Active Annette Harris MD Attending Provider Active Strategic Alliances Manager Relationship 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 [address] [place] [address] PCP - General Family Medicine 10/14/20 Gwendolyn Stroud CNP [address] [place] [address] Family Medicine 03/14/22 Strategic Alliances Manager Relationship 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 [address] [place] [address] PCP - General Family Medicine 10/14/20 Gwednolyn Stroud CNP [address] [place] [address] Family Medicine 03/14/22 Strategic Alliances Manager Relationship 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 [address] [place] [address] PCP - General Family Medicine 10/14/20 Gwendolyn Stroud CNP [address] [place] [address] Family Medicine 03/14/22 Strategic Alliances Manager Relationship 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 [address] [place] [address] PCP - General Family Medicine 10/14/20 Gwendolyn Stroud CNP [address] [place] [address] Family Medicine 03/14/22 Strategic Alliances Manager Relationship 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 [address] [place] [address] PCP - General Family Medicine 10/14/20 Gwendolyn Stroud CNP [address] [place] [address] Family Medicine 03/14/22 Strategic Alliances Manager Relationship 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 [address] [place] [address] PCP - General Family Medicine 10/14/20 Gwendolyn Stroud CNP [address] [place] [address] Family Medicine 03/14/22 Strategic Alliances Manager Relationship 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 [address] [place] [address] PCP - General Family Medicine 10/14/20 Gwendolyn Stroud CNP [address] [place] [address] Family Medicine 03/14/22 Strategic Alliances Manager Relationship 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 [address] [place] [address] PCP - General Family Medicine 10/14/20 Gwendolyn Stroud CNP [address] [place] [address] Family Medicine 03/14/22 Strategic Alliances Manager Relationship 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 [address] [place] [address] PCP - General Family Medicine 10/14/20 Gwendolyn Stroud CNP [address] [place] [address] Family Medicine 03/14/22 Strategic Alliances Manager Relationship 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 [address] [place] [address] PCP - General Family Medicine 10/14/20 Gwendolyn Stroud, KWESI [address] [place] [address] Family Medicine 03/14/22 Strategic Alliances Manager Relationship 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 [address] [place] [address] PCP - General Family Medicine 10/14/20 Gwendolyn Stroud, IMPLEMENTATION PROJECT MANAGER [address] [place] [address] Family Medicine 03/14/22 Team Status: Inactive Member Role Status Henrietta Gómez DO Primary Care Provider Active Annette Cartagena MD Attending Provider Active Strategic Alliances Manager Relationship 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 [address] [place] [address] PCP - General Family Medicine 10/14/20 Gwendolyn Stroud, IMPLEMENTATION PROJECT MANAGER [address] [place] [address] Family Medicine 03/14/22 Strategic Alliances Manager Relationship 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 [address] [place] [address] PCP - General Family Medicine 10/14/20 Gwendolyn Stroud, IMPLEMENTATION PROJECT MANAGER [address] [place] [address] Family Medicine 03/14/22 Strategic Alliances Manager Relationship 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 [address] [place] [address] PCP - General Family Medicine 10/14/20 Gwendolyn Stroud CNP [address] [place] [address] Family Medicine 03/14/22 Strategic Alliances Manager Relationship 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 [address] [place] [address] PCP - General Family Medicine 10/14/20 Gwendolyn Stroud CNP [address] [place] [address] Family Medicine 03/14/22 Strategic Alliances Manager Relationship 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 [address] [place] [address] PCP - General Family Medicine 10/14/20 Gwendolyn Stroud CNP [address] [place] [address] Family Medicine 03/14/22 Strategic Alliances Manager Relationship 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 [address] [place] [address] PCP - General Family Medicine 10/14/20 Gwendolyn Stroud CNP [address] [place] [address] Family Medicine 03/14/22 Strategic Alliances Manager Relationship 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 [address] [place] [address] PCP - General Family Medicine 10/14/20 Gwendolyn Stroud CNP [address] [place] [address] Family Medicine 03/14/22 Strategic Alliances Manager Relationship Specialty Start Date End Date Eliceo Gmóez Jr. [address] [place] [address] PCP - General Family Medicine 10/14/20 Gwendolyn Stroud CNP [address] [place] [address] Family Medicine 03/14/22 Team Status: Inactive Member Role Status Henrietta Gómez , DO Primary Care Provider Active Anibal Valle , DO Emergency Provider Active Strategic Alliances Manager Relationship 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 [address] [place] [address] PCP - General Family Medicine 10/14/20 Gwendolyn Stroud CNP [address] [place] [address] Family Medicine 03/14/22 Strategic Alliances Manager Relationship 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 [address] [place] [address] PCP - General Family Medicine 10/14/20 Gwendolyn Stroud CNP [address] [place] [address] Family Medicine 03/14/22 Strategic Alliances Manager Relationship 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 [address] [place] [address] PCP - General Family Medicine 10/14/20 Gwendolyn Stroud CNP [address] [place] [address] Family Medicine 03/14/22 Strategic Alliances Manager Relationship 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, DO [address] [place] [address] PCP - General Family Medicine 10/14/20 Gwendolyn Stroud CNP [address] [place] [address] Family Medicine 03/14/22 Strategic Alliances Manager Relationship 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, DO [address] [place] [address] PCP - General Family Medicine 10/14/20 Gwendolyn Stroud CNP [address] [place] [address] Family Medicine 03/14/22 Strategic Alliances Manager Relationship 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, DO [address] [id number] [place] [address] PCP - General Family Medicine 12/11/19 Team Status: Inactive Member Role Status Dates Shannon Gómez DO Primary Care Provider Active Start: November 23, 2023 End: November 23, 2023 Eagle Vazquez DO Attending Provider Active Start : November 23, 2023 End: November 23, 2023 Strategic Alliances Manager Relationship 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, DO [address] [place] [address] PCP - General Family Medicine 12/11/19 [place] [phone] (Work) Consulting Physician Behavioral Health 12/20/23 Strategic Alliances Manager Relationship 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, DO [address] [place] [address] PCP - General Family Medicine 10/14/20 Gwendolyn Stroud, IMPLEMENTATION PROJECT MANAGER [address] [place] [address] Family Medicine 03/14/22 Strategic Alliances Manager Relationship 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, DO [address] [place] [address] PCP - General Family Medicine 12/11/19 [place] [phone] (Work) Consulting Physician Behavioral Health 12/20/23 Strategic Alliances Manager Relationship 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, DO [address] [place] [address] PCP - General Family Medicine 10/14/20 Gwendolyn Stroud, IMPLEMENTATION PROJECT MANAGER [address] [place] [address] Family Medicine 03/14/22 Strategic Alliances Manager Relationship 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, DO [address] [place] [address] PCP - General Family Medicine 12/11/19 Jenna Butler [address] [facility] [address] [place] Consulting Physician Behavioral Health 12/20/23 Goals (unrecognized section and content) Goals may [...] BE BASED ON THE PRIMARY CLINICAL RECORDS. [facility]. provides no warranty or guarantee of the accuracy or completeness of information in this document.
[2024-01-15 07:02] VITALS: BP 125/84; PULSE 71; RESP 16; TEMP 36.4; O2SAT 100
[2024-01-15 07:58] VITALS: BP 116/74; PULSE 68; RESP 18; O2SAT 94
[2024-01-15 08:00] VITALS: BP 124/82; PULSE 65; RESP 18; O2SAT 95
--- NOTE | 2024-01-15 08:00 | W.PM.PROCNOT ---
Date of procedure: 01/15/24 Pre-op diagnosis: M54.12 Post-op diagnosis: same as pre-op Procedure: Procedure: Bilateral C5-6 transforaminal epidural steroid injection Medications: Bupivacaine 0.25% 2cc, dexamethasone 10mg The patient was seen and examined in the preoperative holding area.? Informed consent was obtained and placed on the chart.? Patient was brought to the medical procedure unit and placed in the prone position where a timeout was completed verifying the correct patient, procedure site, position, and planned special equipment using sterile aseptic technique.? Under direct fluoroscopic visualization a 25-gauge Quincke tipped spinal needle was advanced at level left C5-6 to the designated neural foramen where contrast dye was injected to show adequate spread.? There was no evidence of vascular or adverse uptake.? Epidural spread was appreciated.? The above-mentioned injectate was then placed in a 1.5 mL aliquot preceded by negative aspiration.? The needle was removed. The same procedure, at the same level, was completed on the opposite side. ? Patient was taken to the postprocedural recovery area and monitored for an appropriate length of time before found suitable for discharge in the accompaniment of a responsible adult. Anesthesia: Local Surgeon: Ace Ahumada Pathology: none sent Condition: stable Disposition: no change
[2024-01-15] MEDS: BUPIVACAINE HCL 0.25% PF 25 MG/10 ML VIAL INJ (08:02)
[2024-01-15] MEDS: DEXAMETHASONE SOD PHOS 10 MG/ML VIAL INJ (08:02)
[2024-01-15] MEDS: LIDOCAINE HCL 2% PF 100 MG/5 ML VIAL 3 ML INJ (08:03)
[2024-01-15] MEDS: IOHEXOL 240 MG/ML - 10 ML VIAL 12 MG INJ (08:03)
== END 2024-01-15 08:18 | disposition home or self-care (01) ==
LOC: SURGOUT 06:29
PROVIDERS: PCP Family Medicine; Visit Provider Anesthesiology
DX: M54.12 Radiculopathy, cervical region (principal)
CPT/HCPCS: 64479; J1100; Q9966

== ENCOUNTER 2024-01-24 09:14 | Outpatient (OUT) | payer OTHER, SELFPAY ==
--- NOTE | 2024-01-24 09:32 | P.CN_ITS ---
Consult Note: HPI Data of Consult Patient: known to practice within the last 3 years Consult date: 12/25/23 Requesting Physician: Monica Burns NP Primary Care Provider: Isatu CASTRO Consult Narrative Reason for consult: neck and bilateral arm pain, low back pain Narrative: 53yof who presents for assessment. worsening neck pain. also axial low back pain that is worsened with standing and walking. imaging reviewed, which is significant for multilevel stenosis in cervical spine, including c4-5, c5-6, c6- 7 and facet arthropathy. lumbar xr shows multilevel spondylosis and facet arthropathy. she has continued in physical therapy home exercises for >6 weeks, with minimal benefit. uses tylenol and celebrex for >6 weeks, without much benefit. denies adverse med side effects. Recent bilateral C5-6 TFESI patient reports no improvement in neck pain, has noticed improvement in left sided radicular pain, continues to have right hand numbness tingling. Patient would like to discuss chronic neck pain and injection therapy. Finds benefit to current medication regimen without side effects cc:: CC: Monica Burns NP Review of Systems 2 ROS0 Status of ROS 10 or more systems reviewed and unremark able except as noted in history and below Musculoskeletal Reports: back pain, neck pain and extremity pain PFSH PFS Medical History Panic attacks ?F41.0 - Panic disorder [episodic paroxysmal anxiety] (ICD-10) OCD (obsessive compulsive disorder) ?F42.9 - Obsessive-compulsive disorder, unspecified (ICD-10) COVID-19 ?U07.1 - COVID-19 (ICD-10) Migraine ?G43.909 - Migraine, unspecified, not intractable, without status migrainosus (ICD-10) Gastritis ?K29.70 - Gastritis, unspecified, without bleeding (ICD-10) GERD (gastroesophageal reflux disease) ?K21.9 - Gastro-esophageal reflux disease without esophagitis (ICD-10) Peroneal tendinitis ?M76.70 - Peroneal tendinitis, unspecified leg (ICD-10) Posterior tibial tendon dysfunction ?M76.829 - Posterior tibial tendinitis, unspecified leg (ICD-10) Painful orthopaedic hardware ?T84.84XA - Pain due to internal orthopedic prosthetic devices, implants and grafts, initial encounter (ICD-10) Cellulitis ?L03.90 - Cellulitis, unspecified (ICD-10) Post op infection ?T81.40XA - Infection following a procedure, unspecified, initial encounter (ICD-10) Restless leg syndrome ?G25.81 - Restless legs syndrome (ICD-10) Tibialis anterior tendon tear, traumatic ?S86.219A - Strain of muscle(s) and tendon(s) of anterior muscle group at lower leg level, unspecified leg, initial encounter (ICD-10) Osteoarthritis ?M19.90 - Unspecified osteoarthritis, unspecified site (ICD-10) Back pain ?M54.9 - Dorsalgia, unspecified (ICD-10) Sleep disorder ?G47.9 - Sleep disorder, unspecified (ICD-10) PTSD (post-traumatic stress disorder) ?F43.10 - Post-traumatic stress disorder, unspecified (ICD-10) Depression ?F32.A - Depression, unspecified (ICD-10) Anxiety ?F41.9 - Anxiety disorder, unspecified (ICD-10) Sleep apnea ?G47.30 - Sleep apnea, unspecified (ICD-10) Asthma ?J45.909 - Unspecified asthma, uncomplicated (ICD-10) Constipation ?K59.00 - Constipation, unspecified (ICD-10) High cholesterol ?E78.00 - Pure hypercholesterolemia, unspecified (ICD-10) Hypertension ?I10 - Essential (primary) hypertension (ICD-10) Female rectocele with enterocele ?N81.6 - Rectocele (ICD-10) ?K46.9 - Unspecified abdominal hernia without obstruction or gangrene (ICD- 10) 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 - Other specified functional intestinal disorders (ICD-10) Surgical History H/O tooth extraction ?K08.409 - Partial loss of teeth, unspecified cause, unspecified class (ICD- 10) H/O foot surgery (05/12/23) ?Z98.890 - Other specified postprocedural states (ICD-10) History of appendectomy (1987) ?Z90.49 - Acquired absence of other specified parts of digestive tract (ICD- 10) History of colonoscopy ?Z98.890 - Other specified postprocedural states (ICD-10) History of colectomy (03/2022) ?Z90.49 - Acquired absence of other specified parts of digestive tract (ICD- 10) History of tonsillectomy and adenoidectomy ?Z90.89 - Acquired absence of other organs (ICD-10) History of hysterectomy (2014) ?Z90.710 - Acquired absence of both cervix and uterus (ICD-10) History of arthroplasty of right ankle ?Z98.890 - Other specified postprocedural states (ICD-10) History of repair of rotator cuff ?Z98.890 - Other specified postprocedural states (ICD-10) S/P ankle ligament repair (2020) ?Z98.890 - Other specified postprocedural states (ICD-10) Family History Other Family history of Alzheimer's disease Family history of coronary artery disease Family history of heart disease Family history of hypertension Social History Within the past year, how often did you have a drink containing alcohol: never Score interpretation: A score less than 3 is consistent with normal alcohol consumption. Smoking status: Never smoker Non-prescribed substance use: denies use Previous occupational history: unemployed Highest level of school completed/degree received: some college, no degree Little interest or pleasure in doing things: not at all Feeling down, depressed, or hopeless: not at all Feel stressed/tense/nervous/anxious/difficulty sleeping: only a little Due to disability, difficulty making decisions: No Do you think of yourself as: straight/heterosexual Gender Identity: female Meds Home Medications and Allergies Home Medications ?Medication ?Instructions ?Recorded ?Confirmed ?Type atenolol 25 mg tablet 25 mg PO Q24H 05/04/23 01/15/24 History dexlansoprazole 60 mg 60 mg PO QAM 05/04/23 01/15/24 History capsule,biphase delayed release fremanezumab-vfrm 225 mg/1.5 mL 125 mg subcut .p89zurb 05/04/23 01/15/24 History subcutaneous auto-injector (Ajovy) ropinirole 1 mg tablet 1 mg PO QAM 05/04/23 01/15/24 History ropinirole 2 mg tablet 2 mg PO QPM 05/04/23 01/15/24 History aripiprazole 9.75 mg/1.3 mL 300 mg IM .monthly 10/29/23 01/15/24 History intramuscular solution daridorexant 25 mg tablet (Quviviq) 25 mg PO QPM 10/29/23 01/15/24 History fluticasone fur. 100 mcg-umeclid 1 inh inhalation Q24H 11/03/23 01/15/24 History 62.5 mcg-vilant 25 mcg inhalat.powder (Trelegy Ellipta) lamotrigine 25 mg disintegrating 25 mg PO DAILY 11/03/23 01/15/24 History tablet ondansetron 4 mg disintegrating 4 mg PO Q8H PRN nausea and 11/13/23 01/15/24 Rx tablet vomiting 5 days #15 tabs celecoxib 200 mg capsule (Celebrex) 200 mg PO BID 12/11/23 01/15/24 History lisdexamfetamine 30 mg capsule 30 mg PO DAILY 12/11/23 01/15/24 History (Vyvanse) acetaminophen 300 mg-codeine 30 mg 1 tab PO TID PRN pain #90 tabs 12/25/23 01/15/24 Rx tablet diazepam 10 mg tablet (Valium) 10 mg PO ONCE 01/15/24 01/15/24 History Allergies Allergy/AdvReac Type Severity Reaction Status Date / Time risperidone [From Risperdal] AdvReac Mild breast Verified 01/15/24 07:09 nipples leak Exam Constitutional Documenting provider has reviewed patient's vital signs: yes Common normals: no apparent distress, oriented x3, healthy appearing, alert and well nourished General appearance: cooperative [facility] Common normals: normocephalic, hearing grossly normal bilaterally and moist oral mucous membranes Head and scalp: normocephalic Eye Common normals: PERRL Pupil: PERRL Neck & C-Spine Common normals: full ROM General: normal visual inspection Cervical spine: pain with cervical ROM and cervical spine tenderness Chest Common normals: inspection of chest normal Respiratory Common normals: normal respiratory effort, no retractions and no use of accessory muscles Back & Pelvis Lumbar spine/lower back: ROM limited, pain with ROM and straight leg raise negative bilaterally Other: trigger points and pain noted below Back image (female): 2 1. 2. Extremity Common normals: normal to inspection and full ROM Right upper extremity: upper arm Other: weakness to RUE 4/5 compared to LUE 5/5 Neuro Common normals: oriented x3, CN's II-XII intact bilaterally, moves all extremities, no focal motor deficits, no sensory deficits noted and deep tendon reflexes 2+ bilaterally Sensorium/orientation: alert Motor exam: no movement abnormalities noted and strength abnormal Psych Common normals: mental status grossly normal, thought process normal, cooperative, affect normal, speech normal and activity/motor behavior normal Speech: normal speech Thought process: normal thought process Assessment and Plan Assessment and Plan (1) Cervical spondylosis: Assessment and Plan: The patient has had over 3 months of moderate to severe neck pain with functional impairment and inadequate response to conservative care including NSAIDS (unless there are contraindication such as concurrent blood thinners), multiple oral or topical pain medications, and home exercise program/physical therapy.? Patient has completed >6 weeks of guided home exercise program and/or formal physical therapy program without relief of their symptoms.? I have reviewed the imaging of the cervical spine and no red flags were identified.? The imaging reveals radiographic findings consistent with cervical spondylosis We discussed the risks and benefits of the procedure with the patient, and we are NOT planning on using sedation as outlined in the guidelines from Medicare unless there is a documented reason that sedation would be strongly recommended.?? ?The procedure will be completed with fluoroscopic guidance.? (2) Cervical stenosis of spinal canal: (3) Encounter for long-term opiate analgesic use: Assessment and Plan: I have refilled the patient's opioid prescriptions at the above noted dose and schedule.? I feel these medications are improving the patient's quality of life and allow them to tolerate activities of daily living as well as participate in recreational activity.? The patient does not report intolerable side effects. The patient is NOT opioid naive and non-pharmacologic and non-opioid treatment has failed to significantly relieve the patient's pain and improve functionality. The patient has a diagnosis that is related to a somatic or visceral pain etiology. ? ?? I reviewed with the patient the potential risks and side effects with the use of? opioid medications including but not limited to respiratory depression,? sedation, and even . I verified the patient has access to naloxone should? these effects occur. I advised the patient to avoid the use of any other? sedation substances including alcohol, THC, and benzodiazepines while? taking opioid medications due to the risk of compounding side effects and? detrimental outcomes. I reviewed the [employer]NA[employer], pain treatment agreement, urine? drug screen, and opioid start talking forms. The patient was advised to let? their family know they had Naloxone in case they would need to administer? the medication.? ?? A drug screen was completed within the last year, and no aberrancies were noted regarding their use of controlled substances. The patient understands they are subject to the terms and conditions of the pain contract that they have signed. ? ?? I have checked an [place] report on this patient today and there are no aberrancies noted in the prescribing history.? (4) Cervical post-laminectomy syndrome: (5) Lumbar spondylosis: (6) Myofascial pain: (7) Thoracic back pain: (8) Degenerative cervical disc: (9) Panic attacks: (10) OCD (obsessive compulsive disorder): (11) PTSD (post-traumatic stress disorder): (12) Depression: Plan mixed pain patterns, pt has a hx of cervical fusion at C6-7, post C5-6 discectomy, has had chronic pain since. Patients primary pain complaint is cervical facet mediated pain at C2-3 C3-4. proceed with bilateral C2-3 C3-4 facet medial branch blocks x2 under fluoroscopy working towards thermal RFA. Patient has benefitted from cervical RFAs in the past, greater than 2 years ago. failed numerous muscle relaxers in the past and experienced side effects, defer at this time. TENS discussed and ordered continue tylenol #3 TID PRN moderate to severe pain, finds benefit without side effects, has improved quality of life and ability to complete ADLs caution repeat ESIs with psychiatric hx, no side effects doing well at this time. consider right C5-6 C6-7 TFESI in the future return to office with Dr Ahumada for bilateral parathoracic TPIs after cervical facet blocks
== END 2024-01-24 09:15 | disposition home or self-care (01) ==
LOC: PM 09:15
PROVIDERS: PCP Family Medicine; Visit Provider Nurse Practitioner
DX: M47.812 Spondylosis without myelopathy or radiculopathy, cervical region (principal); M48.02 Spinal stenosis, cervical region; Z79.891 Long term (current) use of opiate analgesic; M96.1 Postlaminectomy syndrome, not elsewhere classified; M47.816 Spondylosis without myelopathy or radiculopathy, lumbar region; M79.18 Myalgia, other site; M54.6 Pain in thoracic spine; M50.30 Other cervical disc degeneration, unspecified cervical region; F41.0 Panic disorder [episodic paroxysmal anxiety]; F42.9 Obsessive-compulsive disorder, unspecified; F43.10 Post-traumatic stress disorder, unspecified; F32.A Depression, unspecified
CPT/HCPCS: G0463

== ENCOUNTER 2024-02-26 06:42 | Day surgery (SDC) | payer OTHER, SELFPAY ==
[2024-02-26 06:47] VITALS: BP 117/79; PULSE 66; TEMP 36.6; O2SAT 97
--- OUTSIDE RECORDS SUMMARY | 2024-02-26 06:47 | XMS_ITS | CCD ---
Author Organization [facility] Care Team Providers Care Dairy Processing Supervisor Name Role Phone PARISH GÓMEZ Primary Care Unavailable Eliceo Gómez Jr. Primary Care Provider Yaniv Stroudcie Unavailable Maximus OROSCO, Gwendolyn Unavailable [phone] Beto Harris Unavailable Tita Daugherty Unavailable Erica Kingston Unavailable Eliceo Gómez Unavailable Unavailable Unavailable Allison Arita Unavailable Eliceo Gómez Jr. Primary Care Provider Maximus OROSCO, Gwendolyn Unavailable Eliceo Gómez Unavailable DO Shannon Gómez Primary Care Provider MD Beto Harris Attending Provider [phone] Eliceo Gómez Jr. Primary Care Provider Maximus OROSCO Gwendolyn Unavailable Beto Cartagena Unavailable MD Beto Cartagena Attending Provider [phone] WINSTON HANNAH Attending Unavailable WINSTON HANNAH Referring Unavailable ELICEO GÓMEZ JR Primary Care Unavail able ISRA MASTERS Attending Unavailable ISRA MASTERS Referring Unavailable ELICEO GÓMEZ JR Primary Care Unavail able DO Shannon Gómez Primary Care Provider LORRAINE Duron Attending Provider [phone] DR FELISHA SKELTON Consulting Unavailable KAFTAN, DR Isatu LUGO Primary Care Unavailable HAY ., DR BAEZA Admitting Unavailable HAY ., DR BAEZA Attending Unavailable SALMA AMEZQUITA Consulting Unavailable HIGHLANDER, SADE Kenny Consulting Unavailable HIGHLANDER, SADE Kenny Attending Unavailable HIGHLANDER, PETER D Admitting Unavailable KAFTAN, DR Isatu LUGO Primary Care Unavailable HOLLINGSWORTHSHERLYN Consulting Unavailable HIGHLANDER, SADE D Attending Unavailable HIGHLANDER, PETER D Admitting Unavailable WEST, DR NICKI Gale Consulting Unavailable KAFTAN, DR Isatu LUGO Primary Care Unavailable HIGHLANDER, SADE Kenny Consulting Unavailable KAFTAN, DR Isatu LUGO Primary Care Unavailable TANI ., CHASITY Consulting Unavailable TANI ., CHASITY Attending Unavailable TANI ., CHASITY Admitting Unavailable HENANCY SHELBY Consulting Unavailable KAJEROMEAN, DR Isatu LUGO Primary Care Unavailable PAY [...] Consulting Unavailable TANI ., CHASITY Consulting Unavailable LORIR TRIPLETT Consulting Unavailable DALIA, DR Isatu LUGO Primary Care Unavailable ELIAS ., DR ELDER Rios Admitting Unavailable ELIAS ., DR ELDER Rios Attending Unavailable ELIAS ., DR ELDER Rios Consulting Unavailable WEST, DR NICKI Gale Consulting Unavailable SADE WILDE Consulting Unavailable EDUARDO ., NANCY LAMA Consulting Unavailable GEMBUS, DAWNA Consulting Unavailable HIGHLROBERTA, SADE Kenny Consulting Unavailable CHANI, SADE Kenny Attending Unavailable CHANI, SADE Kenny Admitting Unavailable KALEIGHA, DR Isatu LUGO Primary Care Unavailable KAFTAN, DR Isatu LUGO Primary Care Unavailable PAY ., DR MCDONALD Attending Unavailable PAY ., DR MCDONALD Admitting Unavailable PAY ., DR MCDONALD Consulting Unavailable NIECY DURON Attending Unavailable NIECY DURON Admitting Unavailable DALIA, DR Isatu LUGO Primary Care Unavailable ZIEBER, DR ZAIDA Ellis Consulting Unavailable NIECY DURON Consulting Unavailable DO Tonia Valleic Emergency Provider Unavailable Unavailable Unavailable Primary Care Provider UnavailLEV Aaron Referring Unavailable LEV RITTER Attending Unavailable LEX SALMON Attending Unavailable Héctor, Dr. Dipti Fam Attending Unava arben Gómez Jr, Dr. Eliceo Lugo Primary Care Jessica vailarosario Anaya, Dr. Dipti Fam Attending Unava ilaraceli Gómez Jr, Dr. Eliceo Lugo Primary Care Jessica vailable Héctor, Dr. Dipti Fam Referring Unava ilaraceli Gómez Jr, Dr. Eliceo Lugo Primary Care Jessica vailable Héctor, Dr. Dipti Fam Attending Unava arben Gómez Jr., DO, George [facility] PAULINE CHRISTENSEN Attending Unavailable ELICEO GÓMEZ JR Referring Unavailable ELICEO GÓMEZ JR Primary Care Unavailable Dalia Morales DO, George R Primary Care Provider DO Shannon Gómez Primary Care Provider [phone] DO Eagle Vazquez Attending Provider Eagle Vazquez Admitting Unavailable Eagle Vazquez Attending Unavailable Shannon Gómez Primary Care Unavailable Niecy Duron Admitting Unavailable Niecy Duron Attending Unavailable Shannon Gómez Primary Care Unavailable Anibal Valle Attending Unavailable Shannon Gómez Primary Care Unavailable Anibal Valle Admitting Unavailable RAJIV WILKINSON Attending Unavailable KAFTAN JR, ELICEO R Primary Care Unavailable WERBELEN, CULLEN W Referring Unavailable KAFTAN JR, ELICEO R Primary Care Unavailable WERNING, CULLEN W Attending Unavailable WERNING, CULLEN W Referring Unavailable KAFTAN JR, ELICEO R Primary Care Unavailable WERNING, CULLEN W Attending Unavailable KAFTAN JR, ELICEO R Referring Unavailable KAFTAN JR, ELICEO R Primary Care Unavailable WERNING, CULLEN W Admitting Unavailable WERNING, CULLEN W Attending Unavailable WERBELEN, CULLEN W Referring Unavailable KAFTAN JR, ELICEO R Primary Care Unavailable Brandyn BENSON, Ace Art Attending Unavailable Brandyn BENSON, Ace Art Attending Unavailable Brandyn BENSON, Ace Art Attending Unavailable ELICEO GÓMEZ R Attending Unavailable EAGLE VAZQUEZ Attending Unavailable ELICEO GÓMEZ Attending Unavailable DIPTI ACEVEDO Attending Unavailable EAGLE VAZQUEZ Attending Unavailable ELICEO GÓMEZ R Referring Unavailable KAJEROMEAN, ELICEO R Attending Unavailable KALEIGHA, ELICEO R Referring Unavailable KAJEROMEAN, ELICEO R Attending Unavailable KALEIGHA, ELICEO R Referring Unavailable EAGLE VAZQUEZ Attending Unavailable ELICEO GÓMEZ R Referring Unavailable RON KING Attending Unavailable DALIA, ELICEO R Referring Unavailable EAGLE VAZQUEZ Referring Unavailable RON KING Referring Unavailable PAM WANG Referring Unavailable DALIA JENKINS, ELICEO LUGO Primary Care Unavail able CARMEN DORSEY Attending Unavailable CARMEN DORSEY Attending Unavailable CARMEN DORSEY Attending Unavailable CARMEN DORSEY Attending Unavailable KAILA, CARMEN Attending Unavailable KAILA, CARMEN Attending Unavailable GIANA MORALES Attending Unavailable GIANA MORALES Attending Unavailable GIANA MORALES Attending Unavailable MATTEO QUINONES Attending Unavailable SIOMARA MONTAGUE Referring Unavailable CARMEN DORSEY Attending Unavailable PAULINE CHRISTENSEN Attending Unavailable GIANA MORALES Attending Unavailable SIOMARA MONTAGUE Attending Unavailable DEB HART Referring Unavailable RADHA CASTREJON Attending Unavailable RADHA CASTREJON Attending Unavailable PAM WANG Attending Unavailable ELICEO GÓMEZ JR Primary Care Unavail able PAM WANG Admitting Unavailable JAIRON LAI Attending Unavailable PAM WANG Referring Unavailable DALIA JENKINS, ELICEO LUGO Primary Care Unavail able PAM WANG Attending Unavailable HERNANDEZTOMASA JENKINS, ELICEO LUGO Primary Care Unavail able DALIA , ELICEO LUGO Primary Care Unavail able NELSY CHÁVEZ Attending Unavailable DALIA JENKINS, ELICEO LUGO Primary Care Unavail able DALIA JENKINS, ELICEO LUGO Primary Care Unavail able DALIA JENKINS, ELICEO LUGO Primary Care Unavail able STEPHONLEIGHA JENKINS, ELICEO LUGO Primary Care Unavail able PAM WANG Attending Unavailable PAM WANG Attending Unavailable PAM WANG Referring Unavailable HERNANDEZTOMASA , ELICEO LUGO Primary Care Unavail able DALIA JENKINS, ELICEO LUGO Primary Care Unavail able PATRICDORIS Attending Unavailable Allergies Allergy Classification Reported Allergen(s) Allergy Type Date of Onset Reaction(s) Facility (20 sources) risperiDONE; Translations: [RisperDAL TABS] Drug Allergy 0 Intolerance, Other (See Comments) [facility] (1 source) oxyCODONE Drug Allergy [facility] (1 source) risperiDONE Drug Allergy [facility] (11 sources) POISON BRENDA EXTRACT; Translations: [POISON BRENDA EXTRACT] Drug Allergy 3 Rash [facility] (1 source) risperiDONE Drug Allergy 3 [facility] Repository (1 source) POISON BRENDA; Translations: [POISON BRENDA] Propensity to adverse reactions to drug (disorder) 2 [facility]ository Medications Current Medications Medication Drug Class(es) Dates Sig (Normalized) Sig (Original) acetaminophen 500 mg oral tablet (5 sources) Start: 01-26-2024 End: 02-02-2024 take 2 tablets by mouth every six hours as needed acetaminophen (TYLENOL EXTRA STRENGTH) 500 mg tablet Take 2 tablets by mouth every 6 hours as needed for pain for up to 7 days. 56 tablet 0 01/26/2024 02/02/2024 Active Start: 08-12-2023 End: 08-12-2023 Acetaminophen (OFIRMEV) IVPB 1,000 mg Start: 12-27-2021 End: 02-08-2022 take 2 tablets by mouth every six hours as needed acetaminophen (TYLENOL EXTRA STRENGTH) 500 mg tablet Take 2 tablets by mouth every 6 hours as needed for pain. 0 12/27/2021 02/08/2022 Discontinued (Course of therapy completed) Comment on above: Take 2 tablets by mo ut every 6 hours as needed for pain. Take 2 tablets by mo uth every 6 hours as needed for pain for up to 7 days. acetaminophen 325 mg / oxyCODONE hydrochloride 5 mg oral tablet (20 sources) Opioid Agonist Start: 09-06-2021 take 1 tablet by mouth twice daily as needed oxyCODONE-Acetam inophen 5-325 MG 1 tablet as needed Orally [...] 1 tablet by mouth every twelve hours [id number] actuat albuterol 0.09 mg/actuat metered dose [...] on above: inhale 2 puffs by mo [facility] INTO THE LUNGS every 4 hours if needed alendronic acid 70 mg oral tablet (2 sources) Bisphosphonate Start: 023 take 1 tablet by mouth every week Alendronate (Fosamax) 70 mg Tablet Active 70 MG PO every week June 04, 2023 11:00pm cholecalciferol 0.05 mg oral capsule (20 sources) Vitamin D Start: 023 take 1 capsule by mouth once daily Cholecalciferol (Vitamin D3) (Vitamin D3) 50 mcg (2,000 unit) capsule Active 2000 UNIT PO Daily June 04, 2023 11:00pm End: 01-25-2024 take 1 capsule by mouth once daily Cholecalciferol, Vitamin D3, 25 mcg (1,000 unit) cap Take 1,000 Units by mouth once daily. 0 01/25/2024 Discontinued (Course of therapy completed) Cholecalciferol, Vitamin D3, (VITAMIN D) 25 mcg (1,000 unit) cap Take 1,000 Units by mouth once daily. 0 Active Comment on above: Take 1,000 Units by mouth once daily. 168 hr cloNIDine 0.62854 mg/hr transdermal system (3 sources) Central alpha-2 [...] 11:00pm Start: 06-05-2023 take 1 capsule by [facility] once daily Dexlansoprazole (Dexilant) 60 mg [...] a day for 30 day(s) Jul, Active docusate sodium 100 mg oral capsule (3 sources) Start: 01-26-2024 End: 02-25-2024 take 1 capsule by mouth twice daily docusate sodium (COLACE) 100 mg capsule Take 1 capsule by mouth two times a day. 60 capsule 0 01/26/2024 02/25/2024 Active Comment on above: Take 1 capsule by mouth two times a day. DULoxetine 40 mg delayed release oral capsule [...] 1 puff(s) by inhalation in the morning ssmcbbgqkpn-gmxakxvzg-rogxasbs (TRELEGY ELLIPTA) 100-62.5-25 mcg blister with device Indications: Asthma, unspecified asthma severity, unspecified whether complicated, unspecified whether persistent Inhale 1 puff in the morning. 60 each 5 05/31/2022 Active take 1 puff(s) by inhalation once daily clujelugmyp-mzoarbrnx-ugkthnlq (TRELEGY ELLIPTA) 100-62.5-25 mcg Inhale 1 Puff as instructed once daily. 0 Active take 1 puff(s) by inhalation once daily Trelegy Ellipta 100-62.5-25 MCG/INH 1 pu ff Inhalation Once a day Not-Taking Comment on above: Inhale 1 Puff as ins tructed once daily. ibuprofen 600 mg oral tablet (4 sources) Nonsteroidal Anti-inflammatory Drug Start: 01-26-2024 End: 02-02-2024 take 1 tablet by mouth every six hours as needed ibuprofen (MOTRIN) 600 mg tablet Take 1 tablet by mouth every 6 hours as needed for pain for up to 7 days. 28 tablet 0 01/26/2024 02/02/2024 Active Start: 12-27-2021 End: 02-08-2022 take 200-400 mg by mouth every four hours as needed ibuprofen (MOTRIN) 200 mg tablet Take 1-2 tablets by mouth every 4 hours as needed for pain. 0 12/27/2021 02/08/2022 Discontinued (Course of therapy completed) Comment on above: Take 1-2 tablets by mouth every 4 hours as needed for pain. Take 1 tablet [address] [facility] every 6 hours as needed for pain for up to 7 days. inulin 200 mg / lactobacillus rhamnosus gg [id number] unt oral capsule (1 source) Start: End: take 1 capsule by mouth once daily lactobacillus rhamnosus (CULTURELLE) 10 billion cell -200 mg capsule Take 1 capsule by mouth once daily. 30 capsule 0 06/07/2022 07/07/2022 Active Comment on above: Take 1 capsule by [facility] once daily. iv contrast (will be [...] sources) Nonsteroidal Anti-inflammatory Drug, Cyclooxygenase Inhibitor Start: 023 ketorolac (TORADOL) 10 MG tablet Take at onset of migraine, may take up to 2 times a day. No more than 1-2 a week 0 04/17/2023 Active Start: 02-01-2020 Toradol per 15 mg Jan, 60 mg LORazepam 1 mg oral tablet (13 sources) [...] Not-Taking/PRN oxyCODONE hydrochloride 5 mg oral tablet (5 sources) Opioid Agonist Start: 01-26-2024 End: 01-29-2024 take 1 tablet by mouth every twelve hours as needed for pain oxyCODONE IR (ROXICODONE) 5 mg immediate release tablet Indications: Acute postoperative pain Take 1 tablet by mouth every 12 hours as needed for pain for up to 3 days. 5 tablet 0 01/26/2024 01/29/2024 Active Start: 04-05-2022 End: 04-12-2022 take 1 tablet [...] for pain for up to 7 days. Take 1 tablet by yancy th every 12 hours as needed for pain for up to 3 days. predniSONE 20 mg oral tablet (10 [...] tablet 0 08/12/2023 08/22/2023 Active Start: 12-08-2022 End: 01-25-2024 take 10 mL by mouth twice daily sucralfate (CARAFATE) 100 mg/mL suspension Indications: Gastroesophageal reflux disease with esophagitis without hemorrhage Take 10 mL by mouth twice daily. 600 mL 2 12/08/2022 01/25/2024 Discontinued (Course of therapy completed) Start: 12-07-2022 End: 12-08-2022 take 1 tablet by mouth twice daily sucralfate (CARAFATE) 1 gram tablet Take 1 tablet by mouth twice daily. 60 tablet 1 12/07/2022 12/08/2022 Discontinued Comment on above: Take 10 mL by mouth twice daily. Take 1 tablet by yancy th twice daily. sulfamethoxazole 800 mg / trimethoprim 160 mg oral tablet (2 sources) Dihydrofolate Reductase Inhibitor Antibacterial, Sulfonamide Antimicrobial Start: End: take 1 tablet by mouth twice daily sulfamethoxazo le-trimethopri m (BACTRIM DS) 800-160 mg per tablet Take 1 tablet by mouth two times a day for 7 days. 14 tablet 0 01/26/2024 02/02/2024 Active Start: 09-27-2023 End: 09-30-2023 take 1 tablet by mouth twice daily sulfamethoxazole-trimethoprim (BACTRIM D S) 800-160 mg per tablet Indications: Urinary frequency Take 1 tablet by mouth two times a day for 3 days. 6 tablet 0 09/27/2023 09/30/2023 Comment on above: Take 1 tablet by yancy th two times a day for 3 days. Take 1 tablet by yancy th two times a day for 7 days. traMADol hydrochloride 50 mg oral tablet (11 [...] bedtime June 04, 2023 11:00pm Start: 03-04-2022 End: 01-25-2024 take 4 tablets by mouth once daily at bedtime traZODone (DESYREL) 50 mg tablet Take 200 mg by mouth daily at bedtime. 0 03/04/2022 01/25/2024 Discontinued (Course of therapy completed) Start: 03-04-2022 take 3 tablets by mo [...] 13-Jun-2023 DO Active take 1 tablet by yancy th at bedtime traZODone HCl - 150 MG [...] Class(es) Dates Sig (Normalized) Sig (Original) acetaminophen 250 mg / aspirin 250 mg / caffeine 65 mg oral tablet (5 sources) Platelet Aggregation Inhibitor, Nonsteroidal Anti-inflammatory Drug, Central Nervous System Stimulant, Methylxanthine Start: 09-13-2017 End: 10-01-2018 take 1 tablet by mouth every four to six hours Aspirin-Acetaminop hen-Caffeine (Excedrin Migraine) 250-250-65 mg Tablet Discontinued 1 - 2 TAB PO EVERY 4-6 HOURS September 13, 2017 12:00am October 01, 2018 9:40am acetaminophen 300 mg / codeine phosphate 30 mg oral tablet (5 sources) Opioid Agonist Start: 01-24-2024 take 1 tablet by mouth three times daily acetaminophen-code ine (TYLENOL-COD #3) 300-30 mg per tablet Take 1 tablet by mouth three times a day. 0 01/24/2024 Active Comment on above: Take 1 tablet by yancy th three times a day. ALPRAZolam 1 mg oral tablet (5 sources) Benzodiazepine Start: 09-13-2017 End: 10-01-2018 take 1 tablet by mouth three times daily Alprazolam Discontinued 1 TAB PO Three times daily September 13, 2017 12:00am October 01, 2018 9:40am amitriptyline hydrochloride 25 mg oral tablet (5 sources) Tricyclic Antidepressant Start: 02-18-2020 End: 06-05-2023 [...] 2017 12:00am October 01, 2018 9:40am ARIPiprazole mon ohydrate (ABILIFY MAINTENA) 300 mg sers injection Inject 300 mg intramuscularly. 0 Active ARIPiprazole (AB ILIFY MAINTENA) 300 mg suspension,extended [...] (20 sources) HMG-CoA Reductase Inhibitor Start: 03-10-20 End: 01-25-20 take 1 tablet by mouth once daily atorvastatin (LIPITOR) 20 mg tablet Take 20 mg by mouth once daily. 0 03/10/2022 01/25/2024 Discontinued (Course of therapy completed) Comment on above: Take 20 mg by mouth once daily. betamethasone 0.5 mg/ml topical cream (2 sources) Corticosteroid End: 12-20-19 betamethasone dipropionate 0.05 % cream Apply 1 [...] 500 mg celecoxib 200 mg oral capsule (12 sources) Nonsteroidal Anti-inflammatory Drug Start: 4 take 1 capsule by mouth twice daily celecoxib (CELEBREX) 200 mg capsule take 1 capsule by mouth twice a day if needed 0 01/07/2024 Active Start: 06-18-2019 End: 02-18-2020 take 1 tablet by mouth once daily Celecoxib Discontinued 1 TAB PO Daily June 17, 2019 11:00pm February 18, 2020 9:25am take 1 capsule by mo [facility] in the morning, then take 1 capsule by mouth at bedtime celecoxib (CeleBREX) 200 mg capsule Take 1 capsule (200 mg total) by mouth in the morning and 1 capsule (200 mg total) before bedtime. 0 Active Comment on above: take 1 capsule by [facility] twice a day if needed cephalexin 500 mg oral capsule (5 sources) Cephalosporin Antibacterial Start: 09-20-20 17 End: 10-01-20 18 take 1 capsule by mouth every eight hours Cephalexin (Keflex) 500 mg capsule Discontinued 500 MG PO Q8H 21 September 20, 2017 12:00am October 01, 2018 [...] mg by mouth twice daily. CLONIDINE TRANSDERM. (3 sources) End: 01-25-2024 CLONIDINE TRANSDERM. Apply 0.1 mg as directed one time a week. 0 01/25/2024 Discontinued (Course of therapy completed) CLONIDINE TRANSD ERM. Apply 0.1 mg as [...] 13, 2017 12:00am October 01, 2018 9:41am End: 01-25-2024 cyclobenzaprine (FLEXERIL) 1 0 mg tablet Take by mouth three times daily. 0 01/25/2024 Discontinued (Course of therapy completed) take 1 tablet by yancy th twice daily as needed Cyclobenzaprine HCl 10 MG 1 tablet as needed Orally up to twice daily as needed for 30 day(s) Active Comment on above: Take by mouth three times daily. daridorexant (QUVIVIQ) 50 mg tablet (5 sources) daridorexant (QU VIVIQ) 50 mg tablet Take by mouth as directed. 0 Active Comment on above: Take by mouth as dir ected. dexlansoprazole 60 mg delayed release oral capsule [...] breakfast docusate sodium 50 mg / sennosides, mcfp 8.6 mg oral tablet (5 sources) Start: [...] Fluticasone Propionate (Flonase Allergy Relief) 50 mcg/actuation [place],Suspension Discontinued 2 SPRAY INTRANASAL Daily October 15, 2018 12:00am June 18, 2019 2:04pm Comment on above: Use 1 [place] in each nostril once daily. Fluticasone Propion-Salmeterol [...] 2:04pm 1.5 ml fremanezumab-vfrm 150 mg/ml auto-injector (20 sources) Start: 07-19-2023 AJOVY AUTOINJE CTOR 225 mg/1.5 mL auto-injector inject 1 AND 1/2 milliliters subcutaneously every 28 DAYS 0 07/19/2023 Active Start: 06-05-2023 Fremanezumab-V frm (Ajovy Autoinjector) 225 mg/1.5 mL auto-injector Active 225 MG SUBCUT every month June 04, 2023 11:00pm Comment on above: inject 1 AND 1/2 mil liliters subcutaneously every 28 DAYS gabapentin 100 mg oral capsule (2 sources) Anti-epileptic Agent Start: End: take 2 capsules by mouth three times daily as needed gabapentin (NEURONTIN) 100 mg capsule Indications: Post-operative state Take 2 capsules by mouth three times a day as needed for up to 10 days. 30 capsule 0 01/27/2024 Active Comment on above: Take 2 capsules by [facility] three times a day as needed for up to 10 days. 1 ml galcanezumab-gnlm 120 mg/ml prefilled syringe (20 sources) End: galcanezumab-gnlm (EMGALITY SYRINGE) 120 mg/mL syringe Inject subcutaneously once every month. Do not shake. 0 01/25/2024 Discontinued (Course of therapy completed) Comment on above: Inject subcutaneousl y once every month. Do not shake. hydrOXYzine hydrochloride 50 mg oral tablet (10 sources) Antihistamine Start: End: take 50 mg by mouth once daily at bedtime Hydroxyzine Hcl Discontinued 50 MG PO Daily at bedtime February 17, 2020 11:00pm June 05, 2023 9:13am Start: 12-19-2018 End: 06-18-2019 take 25 mg by mouth twice daily Hydroxyzine Hcl Discontinued 25 MG PO Twice daily December 19, 2018 12:00am June 18, 2019 2:04pm lactobacillus rhamnosus gg [id number] unt oral capsule (20 sources) Start: 06-09-2022 [...] Discontinued Start: 12-27-2021 take 1 capsule by [facility] once daily lactobacillus rhamnosus (CULTURELLE) 10 billion cell capsule Take 1 capsule by mouth once daily. 30 capsule 0 12/27/2021 Active Comment on above: Take 1 capsule by mo uth once daily. lamoTRIgine 200 mg oral tablet (20 sources) Mood Stabilizer, Anti-epileptic Agent Start: 12-19-2018 [...] 12:14pm take 1 tablet by yancy th once daily lamoTRIgine dispersible/chewable (LAMICTAL) 25 mg tablet Take 25 mg by mouth once daily. 0 Active take 1 tablet by yancy th in the morning lamoTRIgine (LaMICtal) 25 mg tablet Take 1 tablet (25 mg total) by mouth in the morning. 0 Active take 2 tablets by mo [...] 12:00am June 19, 2019 12:23pm lisdexamfetamine dimesylate 50 mg oral capsule (14 sources) Central Nervous System Stimulant Start: 01-22-2024 take 1 capsule by mouth once VYVANSE 50 mg capsule Take 1 capsule by mouth every afternoon. 0 01/22/2024 Active Start: 10-20-2023 VYVANSE 30 mg capsule Take 1 capsule (30 mg total) by mouth. 0 10/20/2023 Active Start: 02-18-2020 End: 06-05-2023 take 1 capsule by mouth once daily Lisdexamfetamine (Vyvanse) 40 mg Capsule Discontinued 40 MG PO Daily February 17, 2020 11:00pm June 05, 2023 9:13am Comment on above: Take 1 capsule by mo [facility] every afternoon. LOCM iohexol (OMNIPAQUE 300 MG/ML) injection 100 mL (1 source) Start: 2022 End: 2022 LOCM iohexol (OMNIPAQUE 300 MG/ML) injection 100 mL lurasidone hydrochloride 40 mg oral tablet (5 sources) Atypical Antipsychotic Start: 2018 End: 2019 take 1 tablet by mouth once daily Lurasidone (Latuda) 40 mg tablet Discontinued 60 MG PO Daily June 17, 2019 11:00pm February 18, 2020 9:26am methylphenidate hydrochloride 20 mg oral tablet (5 sources) Central Nervous System Stimulant Start: 2016 End: 2017 take 1 tablet by mouth twice daily Methylphenidate Hcl Discontinued 1 TAB PO Twice daily September 13, 2017 12:00am October 01, 2018 9:43am methylPREDNISolone 4 mg oral tablet (20 sources) Corticosteroid Start: 2021 methylPREDNISolone 4 MG as directed Orally Once a day for 6 days May, Not-Taking/PRN metroNIDAZOLE 500 mg oral tablet (13 sources) Nitroimidazole Antimicrobial Start: 2021 take 1 tablet by mouth three times [...] oral tablet (5 sources) Start: 019 End: take 2 tablets by mouth once [...] Comment on above: Take 2 tablets by [facility] as directed. Take 2 tablet at [...] Comment on above: Take 1 capsule by [facility] twice daily. nystatin [id number] unt/ml topical cream (20 sources) Polyene Antifungal [...] June 05, 2023 9:13am polyethylene glycol 3350 [id number] mg powder for oral solution (3 sources) [...] Comment on above: [facility] psyllium 520 mg oral capsule (3 sources) Start: 12-27-2021 End: 02-08-2022 psyllium Husk (METAMUCIL) 0.52 gram capsule Take 1 capsule by mouth as directed. As needed for constipation 0 12/27/2021 02/08/2022 Discontinued (Course of therapy completed) Comment on above: Take 1 capsule by mo [facility] as directed. As needed for constipation QUEtiapine 200 mg oral tablet (5 sources) Atypical Antipsychotic Start: 10-01-2018 End: 12-19-2018 take 200 mg by mouth once daily Quetiapine Discontinued 200 MG PO Daily October 01, 2018 12:00am December 19, 2018 12:16pm simethicone 125 mg chewable tablet (20 sources) Start: 10-11-2022 End: 01-25-2024 take 2 tablets by mouth three times daily as needed Simethicone (GAS RELIEF, SIMETHICONE,) 125 mg chewable tablet Indications: Gas bloat syndrome Take 2 tablets by mouth three times daily as needed. 180 tablet 5 10/11/2022 01/25/2024 Discontinued (Course of therapy completed) Comment on above: Take 2 tablets by mo [facility] three times daily as needed. 50 ml sodium chloride 9 mg/ml injection (1 source) Start: 08-12-2023 End: 08-12-2023 sodium chloride 0.9% bolus 0.9 % solution 1,000 mL tiZANidine 2 mg oral tablet (20 sources) Central alpha-2 Adrenergic Agonist Start: 04-05-2022 End: 11-17-2022 take 1 tablet by mouth every eight hours as needed tiZANidine (ZANAFLEX) 2 mg tablet Take 1 tablet by mouth every 8 hours as needed. 30 tablet 0 04/05/2022 11/17/2022 Discontinued Comment on above: [facility] 8 hours as needed. Trelegy [...] mg oral tablet (20 sources) Vitamin B12 End: 01-25-2024 take 1 tablet by mouth once daily cyanocobalamin (VITAMIN B-12) 1,000 mcg tab Take 1,000 mcg by mouth once daily. 0 01/25/2024 Discontinued (Course of therapy completed) Comment on above: Take 1,000 mcg by mo [facility] once daily. vortioxetine 10 mg oral tablet [...] Da te Episodic/Chronic Acute and chronic tonsillitis (8 sources) Chronic tonsillitis; Translations: [Chronic tonsillitis] Onset: 1 Resolved: 2 07-07-2022 Chronic Administrative/social admission (2 sources) Education and/or schooling finding; Translations: [Problems related to education and literacy, unspecified] Onset: 4 01-22-2024 Episodic Anxiety disorders (7 sources) Anxiety; Translations: [Anxiety [...] Hypertensive disorder; Translations: [Essential (primary) hypertension] Onset: 0 10-08-2020 Chronic Fluid and electrolyte disorders (1 source) Dehydration; Translations: [DEHYDRATION] Onset: 3 Episodic Gastrointestinal hemorrhage (3 sources) Gastrointestinal hemorrhage; Translations: [Hemorrhage of gastrointestinal tract, unspecified] Episodic Genitourinary symptoms and ill-defined conditions (5 sources) Incomplete emptying of bladder; Translations: [Retention of urine, unspecified] 07-31-2023 Episodic Headache; including migraine (12 sources) Migraine, unspecified, not intractable, without status [...] 2 Chronic Other aftercare (1 source) Other terminal computer operator (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; Translations: [OTH PROOF READER CURRENT DRUG THERAPY] Onset: 3 Episodic Other connective tissue disease (5 sources) Pain in right foot; Translations: [PAIN IN RIGHT FOOT] Onset: 3 Episodic Other disorders of stomach and duodenum (20 sources) Gastroparesis syndrome; Translations: [Gastroparesis] Onset: 2 10-08-2020 Episodic Other disorders of stomach and [...] legs syndrome] Onset: 0 07-07-2020 Chronic Other infections; including parasitic (20 sources) Personal history of other infectious and parasitic diseases; Translations: [History of 2019 novel coronavirus disease (COVID-19)] Onset: 3 Resolved: 3 10-15-2021 Episodic Other lower respiratory disease (20 sources) Dyspnea; Translations: [Shortness of breath] 08-15-2021 Episodic Other nervous system disorders (20 sources) Chronic pain; Translations: [Other chronic pain] Chronic Other nervous system disorders (12 sources) Other chronic pain; Translations: [Other chronic pain G89.29] Onset: 1 Resolved: 2 Chronic Other nervous system disorders (5 sources) Other acute postprocedural pain; Translations: [OTHER ACUTE POSTPROCEDURAL PAIN] Onset: 2 Episodic Other non-traumatic joint disorders (2 sources) [...] Chronic Other nutritional; endocrine; and metabolic disorders (1 source) Obesity, unspecified; Translations: [Obesity (BMI 30.0-34.9)] Onset: 0 Chronic Other nutritional; endocrine; and metabolic disorders [...] sources) Obstructive sleep apnea (adult) (pediatric); Translations: [Obstructive sleep apnea (adult) (pediatric)] Onset: 3 Chronic Residual codes; unclassified (3 sources) Postoperative state; Translations: [Other specified postprocedural states] Episodic Residual codes; unclassified (3 sources) Pain, unspecified Episodic Residual codes; unclassified (1 source) Acquired absence of both cervix and uterus; Translations: [ACQUIRED ABSENCE BOTH CERVIX AND UTERUS] Onset: 3 Episodic Residual codes; unclassified (1 source) Procedure not done; Translations: [Procedure and treatment not carried out for other reasons] 02-11-2024 Episodic Spondylosis; intervertebral disc disorders; other back [...] (1 source) Post-op Inspire Implant Onset: 4 Unclassified (2 sources) Telehealth Audio/video Visit; Translations: [Telehealth Audio/video Visit] Onset: 3 Urinary tract infections (4 sources) Chronic interstitial [...] lack of coordination] Onset: 01-18-2022 Episodic Other non-epithelial cancer of skin (4 [...] Test Name Value Interpretation Reference Range Facility 29on 02-07-2024 29 Addended by: NATHANAEL MENDOZA on: 02/07/2024 12:01 PM Modules accepted: Orders [facility] Follow-Upon 02-07-2024 Follow-Up [id number] Darrian Leal 1970 F Date Provider Department Center 02/07/2024 PAULINE SANTACRUZ [facility] SLEEP [facility] No family history on file Level of Service:[id number] MD OFFICE/OUTPATIENT ESTABLISHED HIGH MDM 40 MIN Reason for Visit and Comments: Follow-up [638057] - Pt is here to activate her Inspire PAP. [facility] Hussain 01-27-2024 MARIAN Telephone (GYNMN) ----- MARY LEAL ([id number]) 1970 F Date Time Provider Department 01/27/24 RADHA DUNHAM GYNMN During your visit today, we recorded the following information about you: Radha Dunham MD 01/27/2024 10:54 AM Signed Substation Manager Resident Telephone Encounter 01/27/2024 10:44 AM Call duration: 5 min Called pt today regarding post op pain. Pt identity verified by name and . Patient reports intense sharp shooting pain in L buttocks and rectum when sitting since Interstim stage 1 and 2 procedure yesterday 01/[address] Wang. Reports pain only occurs when she sits, does not feel otherwise. She reports she turned down her device due to the pain. Taking tylenol, motrin and PO oxy PRN for the pain without much improvement. Otherwise feeling okay. No other pain. Tolerating PO, no n/v. No fevers or chills, no drainage from surgical site. Voiding spontaneously. Having bowel movements, denies blood in the stool. No chest pain or SOB. Counseled patient she is okay to monitor pain at home for now. Will send gabapentin rx PRN for pain. Informed patient she can call her [employer] rep Monday. Will send telephone encounter to Dr. Wang's office. Counseled patient recommendation to call back or present to ED if develops severe constant pain, fevers/chills, abnormal drainage from surgical site, persistent vomiting. Counseled patient that she may call back any time and, if concerned, patients have the autonomy/liberty to decide to go the ED. Pt expressed understanding of and agreement with plan of care. All questions and concerns answered adequately. Discussed with Dr. Mullins, Urogyn fellow physician automotive power electronics engineer. Radha Dunham MD Obstetrics and Gynecology, PGY1 Pam Wang MD 01/28/2024 8:41 PM Signed OUTGOING TELEPHONE CALL Called patient on 01/27/24 at 11:00AM. Pt still reports a pain in her rectum despite turning down the stimulator. Had patient turn off the stimulator and pain resolved. Will have [employer] rep reach out to patient on Sunday 01/28 to try a different program. Pam Wang Staff Physician, Department of Urogynecology and Pelvic Floor Disorders Allergies As of Date: 01/27/2024 Noted Allergy Reaction RISPERIDONE 07/27/2021 5 - Intolerance Comments: Breast discharge POISON BRENDA EXTRACT 04/06/2023 2 - Rash Date Reviewed: 01/26/2024 Reviewed by: Dai Campuzano RN - Fully Assessed Primary Visit Diagnosis:Post-operative state [Z98.890] Order(s):gabapentin (NEURONTIN) 100 mg capsuleTake 2 capsules by mouth three times a day as needed for up to 10 days.Disp: 30 capsuleRfl: 0 Prescriptions as of 01/28/2024 - gabapentin (NEURONTIN) 100 mg capsule Take 2 capsules by mouth three times a day as needed for up to 10 days. - acetaminophen (TYLENOL EXTRA STRENGTH) 500 mg tablet Take 2 tablets by mouth every 6 hours as needed for pain for up to 7 days. - ibuprofen (MOTRIN) 600 mg tablet Take 1 tablet by mouth every 6 hours as needed for pain for up to 7 days. - docusate sodium (COLACE) 100 mg capsule Take 1 capsule by mouth two times a day. - sulfamethoxazole-trimetho prim (BACTRIM DS) 800-160 mg per tablet Take 1 tablet by mouth two times a day for 7 days. - oxyCODONE IR (ROXICODONE) 5 mg immediate release tablet Take 1 tablet by mouth every 12 hours as needed for pain for up to 3 days. - celecoxib (CELEBREX) 200 mg capsule take 1 capsule by mouth twice a day if needed - daridorexant (QUVIVIQ) 50 mg tablet Take by mouth as directed. - acetaminophen-codeine (TYLENOL-COD #3) 300-30 mg per tablet Take 1 tablet by mouth three times a day. - VYVANSE 50 mg capsule Take 1 capsule by mouth every afternoon. - ARIPiprazole monohydrate (ABILIFY MAINTENA) 300 mg sers injection Inject 300 mg intramuscularly. - lamoTRIgine dispersible/chewable (LAMICTAL) 25 mg tablet Take 25 mg by mouth once daily. - atenolol (TENORMIN) 25 mg tablet Take 1 tablet by mouth every afternoon. - AJOVY AUTOINJECTOR 225 mg/1.5 mL auto-injector inject 1 AND 1/2 milliliters subcutaneously every 28 DAYS - Dexlansoprazole 60 mg CpDM take 1 capsule by mouth before breakfast - rOPINIRole (REQUIP) 2 mg tablet Take 1 mg by mouth twice daily. Takes 1 mg in the AM and 2 mg PM - tsotghlwnfy-uudtvkgbk-sud anter (TRELEGY ELLIPTA) 100-62.5-25 mcg Inhale 1 Puff as instructed once daily. Problem List As Of Date 01/27/2024 Noted Resolved Impingement syndrome of right shoulder [M75.41] 09/29/2020 Arthritis of right acromioclavicular joint [M19*09/29/2020 Partial nontraumatic rupture of right rotator c*09/29/2020 HTN (hypertension) [I10] Gastroparesis [K31.84] Esophageal dysphagia [R13.19] Bipolar 1 disorder (HCC) [F31.9] Obesity (BMI 30.0-34.9) [E66.9] Status post arthroscopy of right shoulder [Z98.*01/22/2021 Sleep disturbance- chronic [G47.9] 08/04/2021 Genitourinary syndrome of me (more content not included)... Normal [facility] ANES POSTPROC EVALon 024 ANES POSTPROC EVAL HNO ID: [id number] Author: BONI MURILLO MD Service: ? Author Type: Anesthesiologist Type: Anesthesia Postprocedure Evaluation Filed: 01/26/2024 09:51 Note Text: POST ANESTHESIA EVALUATION NOTE : 1970 Procedure Summary Date: 01/26/24 Room / Location: [address] [facility] Anesthesia Start: 727 Anesthesia Stop: 899 Procedures: INSRT NSTIM GENERATOR BLADDER W/ POCKET CREATE AND CONNECT BTWN ELCTRD ARRAY AND PULSE GENERATOR OR RECVR (Back) IMPLANT STIMULATOR LEAD(S) BLADDER INCISIONAL APPROACH (Back) FLUOROSCOPIC GUIDANCE/LOCALIZATION OF NEEDLE/CATHETER TIP FOR DIAG OR THERAPUETIC SPINE/PARASPINOUS INJECTION PROCEDURES (Back) Diagnosis: Urinary urgency Urinary frequency OAB (overactive bladder) Urinary incontinence, urge (Urinary urgency [R39.15]) (Urinary frequency [R35.0]) (OAB (overactive bladder) [N32.81]) (Urinary incontinence, urge [N39.41]) Surgeons: Pam Wang MD Responsible Provider: Boni Murillo MD Anesthesia Type: general ASA Status: 3 Anesthesia Type: general Airway Type: ETT Last Vitals Vitals Value Taken Time BP 107/68 01/26/2430 Temp 36 ?C (96.8 ?F) 01/26/24929 Pulse 64 01/26/24 0930 Resp 16 01/26/24929 SpO2 100 % 01/26/24929 Post Anesthesia Patient Status Patient Evaluation: bedside. Neurological Status: sleepy but arousable. Pulmonary Status: breathing comfortably on supplemental oxygen Airway Control: returned to baseline unsupported. Cardiovascular Status: stable. Pain Management: clinically adequate Intraoperative Events: no significant anesthesia events Post Operative Nausea/Vomiting Status: no significant post operative nausea or vomiting Recommendation: continue current plan of care. Other Remarks: Team reported no issues. Anesthesia Observations No Documentation SIGNATURE: Boni Murillo MD PATIENT NAME: Mary Leal DATE: January 26, 2024 TIME: 9:51 AM CSN: [id number] Normal [facility] ANES PRE-OPon 01-26-2024 ANES PRE-OP HNO ID: [id number] Author: BONI MURILLO MD Service: ? Author Type: Anesthesiologist Type: Anesthesia Preprocedure Evaluation Filed: 01/26/2024 07:07 Note Text: ANESTHESIOLOGY DAY OF SURGERY NOTE : 1970 Procedure Information Date/Time: 01/26/24729 Procedures: INSRT NSTIM GENERATOR BLADDER W/ POCKET CREATE AND CONNECT BTWN ELCTRD ARRAY AND PULSE GENERATOR OR RECVR (Back) IMPLANT STIMULATOR LEAD(S) BLADDER INCISIONAL APPROACH (Back) FLUOROSCOPIC GUIDANCE/LOCALIZATION OF NEEDLE/CATHETER TIP FOR DIAG OR THERAPUETIC SPINE/PARASPINOUS INJECTION PROCEDURES (Back) Location: MAIN OR08 / [facility] Surgeons: Pam Wang MD Estimated body mass index is 25.75 kg/m? as calculated from the following: Height as of this encounter: 162.6 cm (5' 4 ). Weight as of this encounter: 68 kg (150 lb). Most recent hematocrit and potassium results: [...] no. Thick neck: no DENTAL Dental findings: edentulous. II - ANESTHESIA PLAN ASA Score: 3 Anesthetic Plan: general Airway type: ETT Beta Zack Monitoring Plan Monitoring plan: standard ASA. Post Procedure Analgesic Plan Postoperative analgesic plan: multimodal analgesia. Informed Consent Anesthetic risks, benefits, alternatives, personnel and consent discussed: yes. Patient / Responsible Green Party agrees to proceed: yes Patient / Surrogate agrees to blood products: Yes Potential Anesthesia issues that may suggest increased risk of complications or contraindication to planned procedure: none. Vitals Value Taken Time BP 119/74 01/26/24 0559 Pulse 73 01/26/24 0559 Resp 16 01/26/24 0559 Temp 36.5 ?C (97.7 ?F) 01/26/24 0559 SpO2 99 % 01/26/24 0559 Facility-Administered Medications as of 01/26/2024 Medication Dose Route Frequency - lidocaine (PF) 10 mg/mL (1 %) 1-2 mg injection (XYLOCAINE) 0.1-0.2 mL INTRADERMAL PRN Or - lidocaine 1% 0.25 mL subcutaneous j-tip syringe (XYLOCAINE) 0.25 mL SUBCUTANEOUS PRN - lactated ringers iv infusion 5-30 mL/hr INTRAVENOUS CONTINUOUS - NaCl 0.9% iv flush bag 20 mL INTRAVENOUS PRN - vancomycin iv piggyback 1 g in D5W 200 mL (VANCOCIN) 1 g INTRAVENOUS Pre-Op Once - gentamicin 100 mg in NaCl (iso-osmotic) 100 mL 100 mg INTRAVENOUS Pre-Op Once - [COMPLETED] celecoxib 200 mg cap(s) (CeleBREX) 200 mg ORAL Pre-Op Once - [COMPLETED] acetaminophen 1,000 mg tab(s) (TYLENOL) 1,000 mg ORAL Pre-Op Once - [COMPLETED] gabapentin 300 mg cap(s) (NEURONTIN) 300 mg ORAL Pre-Op Once Outpatient Medications as of 01/26/2024 Medication Sig - lamoTRIgine dispersible/chewable (LAMICTAL) 25 mg tablet Take 25 mg by mouth once daily. - atenolol (TENORMIN) 25 mg tablet Take 1 tablet by mouth every afternoon. - rOPINIRole (REQUIP) 2 mg tablet Take 1 mg by mouth twice daily. Takes 1 mg in the AM and 2 mg PM - zoidgqqjvqo-ejlcwmwpk-uif anter (TRELEGY ELLIPTA) 100-62.5-25 mcg Inhale 1 Puff as instructed once daily. - acetaminophen (TYLENOL EXTRA STRENGTH) 500 mg tablet Take 2 tablets by mouth every 6 hours as needed for pain for up to 7 days. - ibuprofen (MOTRIN) 600 mg tablet Take 1 tablet by mouth every 6 hours as needed for pain for up to 7 days. - docusate sodium (COLACE) 100 mg capsule Take 1 capsule by mouth two times a day. - sulfamethoxazole-trimetho prim (BACTRIM DS) 800-160 mg per tablet Take 1 tablet by mouth two times a day for 7 days. - oxyCODONE IR (ROXICODONE) 5 mg immediate release tablet Take 1 tablet by mouth every 12 hours as needed for pain for up to 3 days. - ARIPiprazole monohydrate (ABILIFY MAINTENA) 300 mg sers injection Inject 300 mg intramuscularly. - AJOVY AUTOINJECTOR 225 mg/1.5 mL auto-injector inject 1 AND 1/2 milliliters subcutaneously every 28 DAYS - Dexlansoprazole 60 mg CpDM take 1 capsule by mouth before breakfast I have interviewed and examined the patient. I have reviewed the medical record and/or the pre-anesthesia evaluation, pertinent labs, and test results. This contains updated information obtained within 48 hours of Surgery/Procedure. SIGNATURE: Boni Murillo MD PATIENT NAME: Mary Leal DATE: January 26, 2024 TIME: 7:06 AM CSN: [id number] [facility] BRIEF OP NOTon 01-26-2024 BRIEF OP NOT HNO ID: [id number] Author: SOFIYA MULLINS MD Service: Urogynecology Author Type: Fellow Type: Brief Op Note Filed: 01/26/2024 08:44 Note Text: BRIEF OPERATIVE / PROCEDURE NOTE LOG ID: [id number] Surgery/Procedure Date: 01/26/2024 Incision/Procedure Start Time: 7:54 AM Incision Close/Procedure End Time: 8:36 AM Surgeon(s)/Proceduralist( s) and Blocking Machine Operator(s): Surgeon(s) and Role: * Pam Wang MD - Primary * Ghislaine La MD - Resident - Assisting * Sofiya Mullins MD - Fellow No Additional Staff Procedure(s): Interstim Stage 1 and 2 Intraoperative advanced programming, fluoroscopy Anesthesia: Monitored Anesthesia Care Findings: Leads 1-3 with mia and toe at 1.7 Estimated Blood Loss: 10 mls IVF/UOP: per anesthesia records Antibiotics: Vancomycin and Gentamicin prior to skin incision Specimens: None VTE Prophylaxis: none Complications: None Implanted Devices: Implant Name Type Inv. Item Serial No. Cutting Tool Sharpener Lot No. LRB No. Used Action LEAD INTRSTIM MRI 28CM - [id number] Lead LEAD INTRSTIM MRI 28CM [employer] [id number] Left 1 Implanted INTERSTIM X RECHARGE FREE NEUROSTIMULATOR - [id number] Stimulator INTERSTIM X RECHARGE FREE NEUROSTIMULATOR [id number] [employer] Left 1 Implanted Pre-Op/Pre-Procedure Diagnosis: urinary retention, urgency, frequency and nocturia Post-Op/Post-Procedure Diagnosis: same SIGNATURE: Sofiya Mullins MD DATE: January 26, 2024 PATIENT NAME: Mary Leal TIME: 8:42 AM PAGER/CONTACT #: Pager [phone] Normal [facility] HISTORY PHYSICALon HISTORY PHYSICAL HNO ID: [id number] Author: SOFIYA MULLINS MD Service: Urogynecology Author Type: Fellow Type: H&P Filed: 01/26/2024 06:59 Note Text: HISTORY AND PHYSICAL EXAMINATION SERVICE DATE: 01/26/2024 SERVICE TIME: 6:56 AM PRIMARY CARE PHYSICIAN: Eliceo R Kaftan, DO, DO Subjective CHIEF COMPLAINT: urinary retention, urgency, frequency, nocturia HPI: This is a 53 year old female who presents with urinary retention, urgency frequency, nocturia. Had PNE with improvement in sxs. Here for full implant. FUNCTIONAL STATUS: Independent PAST MEDICAL HISTORY Diagnosis Date Asthma as [...] Topics Alcohol use: Never Drug use: Never celecoxib (CELEBREX) 200 mg capsule, take 1 capsule by mouth twice a day if needed, Disp: , Rfl: , 01/25/2024 at 0900 daridorexant (QUVIVIQ) 50 mg tablet, Take by mouth as directed., Disp: , Rfl: , 01/25/2024 at 2100 acetaminophen-codeine (TYLENOL-COD #3) 300-30 mg per tablet, Take 1 tablet by mouth three times a day., Disp: , Rfl: , 01/25/2024 at 2130 VYVANSE 50 mg capsule, Take 1 capsule by mouth every afternoon., Disp: , Rfl: , 01/25/2024 at 0900 lamoTRIgine dispersible/chewable (LAMICTAL) 25 mg tablet, Take 25 mg by mouth once daily., Disp: , Rfl: , 01/25/2024 at 0900 atenolol (TENORMIN) 25 mg tablet, Take 1 tablet by mouth every afternoon., Disp: , Rfl: , 01/25/2024 at 0900 rOPINIRole (REQUIP) 2 mg tablet, Take 1 mg by mouth twice daily. Takes 1 mg in the AM and 2 mg PM, Disp: , Rfl: , 01/25/2024 at 2100 krmgeukfjrh-sjknwauam-ptz anter (TRELEGY ELLIPTA) 100-62.5-25 mcg, Inhale 1 Puff as instructed once daily., Disp: , Rfl: , 01/25/2024 at 0900 ARIPiprazole monohydrate (ABILIFY MAINTENA) 300 mg sers injection, Inject 300 mg intramuscularly., Disp: , Rfl: , 01/24/2024 AJOVY AUTOINJECTOR 225 mg/1.5 mL auto-injector, inject 1 AND 1/2 milliliters subcutaneously every 28 DAYS, Disp: , Rfl: , 01/13/2024 Dexlansoprazole 60 mg CpDM, take 1 capsule by mouth before breakfast, Disp: 30 capsule, Rfl: 5, 01/24/2024 ALLERGIES Allergen Reactions Risperidone Intolerance Breast discharge Poison Brenda Extract Rash COMPLETE REVIEW OF SYSTEMS: GENERAL: No weight loss, malaise or fevers RESPIRATORY: Negative for cough, hemoptysis, wheezing, COPD, dyspnea or shortness of breath CARDIOVASCULAR: Negative for chest pain, leg swelling, hypertension, CHF or palpitations GI: No nausea, vomiting, or diarrhea : See HPI MUSCULOSKELETAL: Negative for joint pain or swelling, back pain or muscle pain Objective PHYSICAL EXAM: Physical Exam Performed: GENERAL: Alert, no distress, cooperative LUNGS: Lungs clear to auscultation, Good diaphragmatic excursion CARDIAC: Normal S1 and S2; no rubs, murmurs, or gallops BREASTS: Exam deferred ABDOMEN: Abdomen soft, non-tender, BS normal, No masses or organomegaly EXTREMITIES: Extremities normal, no deformities, edema, clubbing or skin discoloration. Good capillary refill., No ulcers BP 119/74 Pulse 73 Temp (Src) 97.7 (Temporal Artery) Resp 16 Ht 5' 4 (1.63m) Wt 150 lb (68.0kg) SpO2 99% BMI 25.73 kg/(m2). O2 Therapy: Room Air DATA: Diagnostic tests reviewed for today's visit: No new labs Assessment/Plan Active Hospital Problems No active problems on problem list 53 year old female s/p Anterior colporrhaphy, Posterior colporrhaphy, Placement of retropubic midurethral sling, Perineorrhaphy and Cystoscopy now with bothersome urinary retention, urgency, frequency and nocturia. 12/24/2021, now with urinary retention, urgency frequencyy nocturia, tried Mirabegron, Vesicare and had intradetrusor Botox . Successful PNE. Proceed with Stage 1/2 Interstim. Medication and Non-Pharmacologic VTE Prophylaxis/An (more content not included)... Normal [facility] NURSING PROGon 01-26-2024 NURSING PROG HNO ID: [id number] Author: DAI CAMPUZANO RN Service: Nursing Author Type: Registered Nurse Type: Nursing Progress Note Filed: 01/26/2024 09:51 Note Text: 0923 Paged PACU Resident [facility]- Could you please place an order for a one time dose of her homegoing oxycodone prescription? Dai GAMBINO [id number] Paged PACU Resident [facility]30 [facility]- Could you please place an order for a one time dose of her homegoing oxycodone prescription? Dai GAMBINO [id number] [facility] NURSING PROG HNO ID: [id number] Author: CATRACHO PIERRE RN Service: ? Author Type: Registered Nurse Type: Nursing Progress Note Filed: 01/26/2024 06:41 Note Text: Nursing Progress Note Topic of Note: Daily Note PATIENT NAME: Mary Leal Patient Location: Main - Periop OR/Main - Periop OR Room: Main - Periop OR ([id number]) PAGE SENT: Akiko Wang and Resident traffic control supervisor-Pt in M23-37 Mary Leal will need informed consent and H AND P for surgery this morning. Thanks, Catracho [phone] This note was completed by: Catracho Pierre [facility] OPERATIVE NOon 01-26-2024 OPERATIVE NO HNO ID: [id number] Author: PAM WANG MD Service: Urogynecology Author Type: Physician Type: Operative Report Filed: 01/29/2024 10:50 Note Text: OPERATIVE/PROCEDURE REPORT LOG ID: [id number] Surgery/Procedure Date: 01/26/2024 Incision/Procedure Start Time: 7:54 AM Incision Close/Procedure End Time: 8:36 AM Surgeon(s)/Proceduralist( s) and Blocking Machine Operator(s): Surgeon(s) and Role: * Pam Wang MD - Primary * Ghislaine La MD - Resident - Assisting * Sofiya Mullins MD - Fellow No Additional Staff Procedure(s): Interstim Stage 1 and 2 Intraoperative advanced programming, fluoroscopy Anesthesia: Monitored Anesthesia Care Findings: Leads 1-3 with mia and toe at 1.7 Estimated Blood Loss: 5 mls IVF/UOP: per anesthesia records Antibiotics: Vancomycin and Gentamicin prior to skin incision Specimens: None VTE Prophylaxis: none Complications: None Implanted Devices: Implant Name Type Inv. Item Serial No. Cutting Tool Sharpener Lot No. LRB No. Used Action LEAD INTRSTIM MRI 28CM - [id number] Lead LEAD INTRSTIM MRI 28CM [employer] [id number] Left 1 Implanted INTERSTIM X RECHARGE FREE NEUROSTIMULATOR - [id number] Stimulator INTERSTIM X RECHARGE FREE NEUROSTIMULATOR [id number] [employer] Left 1 Implanted Pre-Op/Pre-Procedure Diagnosis: urinary retention, urgency, frequency and nocturia Post-Op/Post-Procedure Diagnosis: same Drains: None Indications: This patient has a history of urinary retention, overactive bladder, urinary urgency/frequency, nocturia. This has been substantiated on voiding diaries preoperatively, and the patient has failed or not tolerated conservative management or medications, including Mirabegron, Vesicare and had intradetrusor Botox. Despite this, significant bothersome symptoms persist. Accordingly, options were discussed with the patient and the decision was made to undergo InterStim neuromodulation. Office Peripheral Nerve Evaluation was successful and she elected to proceed with lead placement and implantation of permanent pulse generator. The procedure, materials, personnel, indications, alternatives, risks, and benefits were described in great detail. MRI precautions were reviewed. Informed consent was obtained. Procedure Details: The patient was brought to the operative suite, properly identified utilizing two patient identifiers and placed in prone position per OR protocol. IV Vancomycin and gentamicin had already been administered. MAC anesthesia was administered. The patient was prepped and draped in usual sterile fashion. The time out and safety checklist were performed. Fluoroscopic images were obtained to confirm PNE lead placement. Using anatomic landmarks, the approximate locations of the S2 and S3 neural foramina were marked. Local anesthesia was administered deep and superficially over these marked areas. The 5 inch spinal needle was then passed through on the patient's left side approximately 11 cm cephalad to the coccyx at a 60 degree angle, and proper foramen needle position was confirmed with fluoroscopy. The response was tested with each needle and we had an excellent response with the left needle. The needle obturator was removed and the guide wire passed into the foramen up to the second rajiv. Fluoroscopic images were taken to confirm the guide wire was passed the foramen, then the needle was removed. A stab incision was made with the 11 blade. The T-bar introducer was then inserted through the insertion and into the S3 foramen until the marker was snf through the bone. The sacral lead was then introduced through the T-bar, until 3 electrodes were located below the sacral plate and 1 located above. A-P and lateral fluoroscopic images were taken to verify excellent positioning of the lead. The electrodes were tested and we observed for mia and plantar flexion of the great toe. The patient's left S3 neural foramen had the following response: Electrode 0 1 2 3 Anal Mia - + + + Flexion of Great Toe - + + + Amplitude 1.7 mA 1.7 mA 1.7 mA 1.7 mA Local anesthesia was administered over the Left upper buttock incisional site. The pocket was developed to allow implantation of the IPG. The pocket was then expanded with electrocautery and blunt dissection ensuring that it was away from any bony prominences and that there was sufficient overlying subcutaneous tissue. Utilizing the tunneling device, we then tunneled the lead from the lead site to the Left upper gluteal incision site. The InterStim X permanent pulse generator was then connected to the lead. After ensuring that all four lead sites were inserted into the generator, the set screw was tightened. The generator was then placed into the pocket and electrical programming analysis was performed. Less than 1 hour of complex programming was performed - pulse width, frequency, and amplitudes were programmed and impedances (more content not included)... Normal [facility] HISTORY PHYSICALon 4 HISTORY PHYSICAL HNO ID: [id number] Author: MAX MARROQUIN PA-C Service: ? Author Type: Physician Blocking Machine Operator Type: H&P Filed: 01/25/2024 09:25 Note Text: PREANESTHESIA CONSULT CLINIC TELEHEALTH VISIT SERVICE DATE: 01/25/2024 SERVICE TIME: 9:02 AM Patient has been identified by name and date of : Yes Reason for contact: PACC visit Accompanied by: Self This is a virtual visit using [employer] Video Visit. It required patient-provider interaction for the medical decision making as documented below. I have communicated my name and active licensure. The patient's identity and physical location were verified at the time of this visit. Either the patient or their legal dental sales representative has been informed of the risks and benefits of and alternatives to treatment through a remote evaluation and consents to proceed with the evaluation remotely. PRIMARY CARE PHYSICIAN: Eliceo Gómez DO, DO REASON FOR VISIT: Mary Leal is a 53 year old female who is scheduled for INSRT NSTIM GENERATOR BLADDER W/ POCKET CREATE AND CONNECT BTWN ELCTRD ARRAY AND PULSE GENERATOR OR RECVR IMPLANT STIMULATOR LEAD(S) BLADDER INCISIONAL APPROACH FLUOROSCOPIC GUIDANCE/LOCALIZATION OF NEEDLE/CATHETER TIP FOR DIAG OR THERAPUETIC SPINE/PARASPINOUS INJECTION PROCEDURES at the request of Dr. Pam Wang for consultation. My final recommendation will be communicated back to the requesting physician by way of shared medical record or letter. Assessment 1. Pre-op examination surgery scheduled for 01/26/2024 2. Obesity (BMI 30.0-34.9) Body mass index is 25.75 kg/m?. Encouraged lifestyle modifications. 3. Mild persistent asthma without complication Chronic and stable continue medications trillegy Triggered by URI Last required albuterol years ago Denies SOB or wheezing 4. CHUCKIE (obstructive sleep apnea) she is scheduled to activate her inspire 02/07/2024 5. Primary hypertension Stable and compliant with medications Atenolol (Tenormin) Followed by Dr Gómez, PCP Last 5 Encounter BP Readings: Date: BP: 10/10/2023 102/60 07/31/2023 136/96 12/07/2022 119/72 12/07/2022 109/67 12/05/2022 98/65 6. Gastroparesis 7. Gastroesophageal reflux disease, unspecified whether esophagitis present Chronic and stable and compliant with medications I did advise patient to be NPO after midnight, take Dexlansoprazole (Dexilant) in the am with a small sip of water Choe Activity Status Index: METS: Walk a block or two on level ground (2.75 METs) Climb a flight of stairs or walk up a hill (5.50 METs) DASI Score: 8.25 Patient denies any chest pain or undue shortness of breath with the above physical activity. Clinical Frailty Scale: 2. Well STOP-Bang Score: STOP-Bang Score: (CHUCKIE going to using inspire to get activated 02/07/2024 ) [id number] Score: Age: <65 Sex: female CHF history: No Hypertension history: Yes Stroke/TIA/thromboembolis m history: No Vascular disease history: No Diabetes history: No [id number] Score: 2 ANESTHESIA FINDINGS: Intubation History: No history of difficult intubation Significant Anesthesia Considerations: PTSD triggered by pain, had an event with previous surgery none Airway History: No history of difficult airway I - PHYSICAL EVALUATION AIRWAY Patient intubated: No. Tracheostomy tube not present Mallampati: II. TM distance: >3 FB. Neck ROM: full ROM without neurological symptoms. Mouth opening: adequate. Short neck: no. Thick neck: no Cutler present: no Lip Bite Test: I Microretrognathia/Microna gthia/Recessed Chin: No DENTAL Dental findings: teeth intact. Dentures, upper: partial. II - ANESTHESIA PLAN Beta Zack Monitoring Plan Post Procedure Analgesic Plan Prepared for surgery: This patient is optimally prepared for surgery. CONSULTS: Patient does not require consults for optimization at this time. The Following Tests/Procedures Have Been Initiated: Labs not indicated per PACC protocol, EKG not indicated per PACC protocol Planned Anesthetic: Per anesthesia choice Subjective CHIEF COMPLAINT: Urinary urgency, Urinary frequency, OAB (overactive bladder) and Urinary incontinence, urge HPI: This is a 53 year old female who presents with Urinary urgency, Urinary frequency, OAB (overactive bladder) and Urinary incontinence, urge for many years. she also complains of urinary retention. denies dysuria, hematuria, bladder or kidney disease. Recommended for above surgery. PAST MEDICAL HISTORY Diagnosis Date Asthma as a child Bipolar 1 disorder (HCC) Gastroparesis History of laparoscopic-assisted vaginal hysterectomy 10/2015 for endometriosis HTN (hypertension) PTSD (post-traumatic stress disorder) PAST SURGICAL HISTORY Procedure Laterality Date COLONOSCOPY EGD 2019 with dilation FOOT SURGERY HX Right 10/2022 reconstruction PAST SURGICAL HISTORY OF left foot reconstruction PAST SURGICAL HIST (more content not included)... [facility] ----- MARY LEAL ([id number]) 1970 F Date Time Provider Department 12/25/23 PAM WANG GYNDC During your visit today, we recorded the following information about you: [facility] Denisse 12/25/2023 2:54 PM Signed Reason for call: [...] distance health visit in this department: 10/25/2021 [employer], Nurse Next visit in this department: 01/25/2024 Stacie Gonzalez RN 12/25/2023 3:03 PM Signed See message A message has been routed to the provider Closing Stacie Gonzalez RN Allergies As of Date: 12/25/2023 Noted Allergy Reaction RISPERIDONE 07/27/2021 5 - Intolerance Comments: Breast discharge POISON BRENDA EXTRACT 04/06/2023 2 - Rash Date Reviewed: 10/10/2023 Reviewed by: José Luis Thorpe RN - Fully Assessed Reason for Visit: Question [2477] Prescriptions as of 12/25/2023 - ARIPiprazole monohydrate [...] the AM and 2 mg PM - aobnkfhapfe-efjmmlflj-fiz anter (TRELEGY ELLIPTA) 100-62.5-25 mcg Inhale 1 [...] Status:Closed by STACIE GONZALEZ on 12/25/[address] [facility] BASIC METABOLIC PANLon 12-20 Anion gap [Moles/Vol] 6 mmol/L Normal 5-15 [facility] Comment on above: Performed By: #### B MP #### [facility] ([id number]) [address], [address] [place] [address] Calcium [Mass/Vol] 9.3 mg/dL Normal 8.5-10.5 [facility] Comment on above: Performed By: #### B MP #### [facility] ([id number]) [address], [address] [place] [address] Chloride [Moles/Vol] 105 mmol/L Normal 98-109 [facility] Comment on above: Performed By: #### B MP #### [facility] ([id number]) [address], [address] [place] [address] CO2 [Moles/Vol] 28 mmol/L Normal 22-32 [facility] Comment on above: Performed By: #### B MP #### [facility] ([id number]) [address] [place] [address] Creatinine [Mass/Vol] 0.60 mg/dL Normal 0.40-1.00 [facility] Comment on above: Result Comment: METH OD TRACEABLE TO IDMS STANDARD Performed By: #### B MP #### [facility] ([id number]) [address] [place] [address] eGFR (CKD-EPI) NON-RACE DEPENDENT >90 Normal >59 [facility] Comment on above: Result Comment: Reported eGFR is based on the CKD-EPI 2020 equation that does not use a race coefficient. Performed By: #### B MP #### [facility] ([id number]) [address], [address] [place] [address] Glucose [Mass/Vol] 85 mg/dL Normal 65-99 [facility] Comment on above: Performed By: #### B MP #### [facility] ([id number]) [address] [place] [address] Potassium [Moles/Vol] 4.2 mmol/L Normal 3.5-5.0 [facility] Comment on above: Performed By: #### B MP #### [facility] ([id number]) [address] [place] [address] Sodium [Moles/Vol] 139 mmol/L Normal 134-146 [facility] Comment on above: Performed By: #### B MP #### [facility] ([id number]) [address] [address] [place] [address] Urea nitrogen [Mass/Vol] 14 mg/dL Normal 5-23 [facility] Comment on above: Performed By: #### B MP #### [facility] ([id number]) [address] [address] [place] [address] Basic Metabolic Panelon 12-07 Anion gap [Moles/Vol] 6 mmol/L 5 - 15 mmol/L [facility] Calcium [Mass/Vol] 9.3 mg/dL 8.5 - 10. 5 mg/dL [facility] Chloride [Moles/Vol] 105 mmol/L 98 - 10 9 mmol/L [facility] CO2 [Moles/Vol] 28 mmol/L 22 - 32 mmol/L [facility] Creatinine [Mass/Vol] 0.60 mg/dL 0.40 - 1.00 mg/dL [facility] Comment on above: METHOD TRACEABLE TO [facility] STANDARD eGFR (CKD-EPI)non-race dependent - PINF [facility] Comment on above: Reported eGFR is based on the CKD-EPI 2020 equation that does not use a race coefficient. Glucose [Mass/Vol] 85 mg/dL 65 - 99 mg/dL [facility] Potassium [Moles/Vol] 4.2 mmol/L 3.5 - 5.0 mmol/L [facility] Sodium [Moles/Vol] 139 mmol/L 134 - 146 mmol/L [facility] Urea nitrogen [Mass/Vol] 14 mg/dL 5 - 23 mg/dL [facility] 36on 12-05-2023 36 Scheduled Inspire activation appointment 02/06 at 9:15 am. [facility] CNPDianne 11-27-2023 CNPN Telephone (WCTRMN) ----- MARY LEAL ([id number]) 1970 F Date Time Provider Department 11/27[facility]23 [facility] During your visit today, we recorded the following information about you: Atilio Amber 11/27/2023 9:32 AM Signed Patient: Mary Leal : 1970 Provider: Pam Wang MD Caller Phone #: [phone] (home) [phone] (cell) Reason for call: boyfriend pulled out [...] PNE stimulator stopped connecting so Kim of [employer] said to remove it. She removed the [...] 5 - Intolerance Comments: Breast discharge POISON BRENDA EXTRACT 04/06/2023 2 - Rash Date Reviewed: 10/10/2023 Reviewed by: José Luis Thorpe RN - Fully Assessed Reason for Visit: Patient Update [1234] Primary Visit Diagnosis:Urinary urgency [R39.15] Other Visit Diagnoses:Urinary frequency [R35.0] OAB (overactive bladder) [N32.81] Urinary incontinence, urge [N39.41] Order(s):SURGICAL REQUEST - ELECTIVE (06/2020) [[id number]] Order #: [id number]: 1 Prescriptions as of 11/27/2023 - ARIPiprazole [...] the AM and 2 mg PM - cmeentdkbpu-lswzdmobr-buh anter (TRELEGY ELLIPTA) 100-62.5-25 mcg Inhale 1 [...] Encounter Status:Closed by PAM WANG on 11/27/23 [facility] Hussain 11-25-2023 CNPN Telephone (GYNMN) ----- MARY LEAL ([id number]) 1970 F Date Time Provider Department 11/25/23 RADHA DUNHAM During your visit today, we recorded the following information about you: Radha Dunham MD 11/25/2023 2:43 PM Signed Substation Manager Resident Telephone Encounter 11/25/2023 2:40 PM [...] adequately. Discussed with Dr. Mullins, Urog[employer] fellow automotive power electronics engineer. Radha Dunham MD Obstetrics and Gynecology, PGY1 Allergies As of Date: 11/25/2023 Noted Allergy Reaction RISPERIDONE 07/27/2021 5 - Intolerance Comments: Breast discharge POISON BRENDA EXTRACT 04/06/2023 2 - Rash Date Reviewed: 10/10/2023 Reviewed by: José Luis Thorpe RN - Fully Assessed Reason for Visit: Patient Question [2232] Prescriptions as of 11/25/2023 - ARIPiprazole monohydrate [...] the AM and 2 mg PM - wxiehqhmbee-ycletpkpm-krn anter (TRELEGY ELLIPTA) 100-62.5-25 mcg Inhale 1 [...] Status:Closed by RADHA DUNHAM on 11/25/23 Normal [facility] hepatobiliary w pharmon 0 11-23-2023 [place] hepatobiliary w pharm [facility] Main [place] [id number] Nuclear Medicine Report Signed Patient: Mary Leal MR#: [id number] : 1970 Acct:[id number] Age/Sex: 53 / F ADM Date: 11/23/23 Loc: [place] Room: Type: [facility] Attending Dr: Eagle Vazquez DO Copies to: Quinton Melendez Jr, DO Paul C Laffay, DO Ordering Provider: Eagle Vazquez DO Date of Service: 11/23/23 PR/PR hepatobiliary w pharm: RUQ pain, Nausea HIDA [...] is 68%. Normal is greater than 40%. PR/PR hepatobiliary w pharm IMPRESSION: Normal HIDA scan. Impression dictated by: Quinton Melendez Jr., D.OReno11/23/2023 11:56 AM Dictation Location: [place] [address] Transcribed By: [facility] 11/23/23 1156 Dictated By: Quinton Melendez Jr, DO 11/23/23 1155 Signed By: 11/23/23 1156 [facility] CNOVon 11-21-2023 CNOV Office Visit (SHERON ) ----- MARY LEAL ([id number]) 1970 F Date Time Provider Department 11/21/23 [...] 5 - Intolerance Comments: Breast discharge POISON BRENDA EXTRACT 04/06/2023 2 - Rash Date Reviewed: 10/10/2023 Reviewed by: José Luis Thorpe RN - Fully Assessed Primary Visit Diagnosis:Urinary urgency [R39.15] Other Visit Diagnoses:Urinary frequency [R35.0] Overactive bladder [N32.81] Voiding dysfunction [N39.8] Order(s):UA DIP, URINE (POC) [[id number]] Order #: [id number]. #:[id number] [] ondansetron orally disintegrating 4 mg [...] (GAS RE (more content not included)... Normal [facility] BI MAMMOGRAM SCREENING TOMOS YNTHESIS BILATERALon [...] IS VERY IMPORTANT TO YOUR HEALTH. THE STATELESS [employer] SOCIETY GUIDELINES RECOMMEND THAT WOMEN 40 [...] DO Normal Not Available Documentationon 10-12-2023 Documentation [id number] Darrian Leal 1970 F Date Provider Department Center 10/12/2023 Karli-GIANA MORALES [facility] PSYCH Gerardo Heal No family history on file Normal [facility] CNOVon 10-10-2023 CNOV Office Visit (SHERON ) ----- MARY LEAL ([id number]) 1970 F Date Time Provider Department 10/10/23 [...] PFSH obtained by others. Pam Wang MD Memorandum Statement Clerk offered: Patient declines. OBJECTIVE: BP 102/60 General: [...] would like to move forward with PNE. freeetronic packet given to patient today to review. [...] which included preparing to see the patient, bqyc-xd-pwho patient care, completing clinical (more content not included)... Normal [facility] XR CHEST 2 VIEWSon 3 XR CHEST 2 VIEWS FINDINGS: Comparison, June 09, 2021. Intervertebral disc space device again identified lower cervical spine. Cardiopericardial silhouette normal. Pulmonary vasculature normal. Lungs clear. IMPRESSION: Impression: No acute cardiopulmonary disease. ELECTRONICALLY SIGNED BY: Angel Strauss MD Normal Not Available Orders Onlyon 09-19-2023 Orders Only [id number] Darrian Leal 1970 F Date Provider Department Center 09/19/2023 Karli-GIANA MORALES [facility] PSYCH Gerardo Heal No family history on file Normal [facility] CNPDianne 09-12-2023 CNPN Telephone (WHQ) ----- MARY LEAL ([id number]) 1970 F Date Time Provider Department 09/12/23 PAM WANG During your visit today, we recorded the following information about you: Guido Ocampo 09/12/2023 9:02 AM Signed Patient called in wanting to go over yesterday's procedure appointment with Dr. Stephen. Patient of Dr. Wang. Lex Vieyra, RN 09/12/2023 11:53 AM Signed Visit 09/11/23 [...] which included preparing to see the patient, yeyg-eh-jywn patient care, completing clinical documentation, obtaining and/or [...] Office will call to schedule cystoscopy. Urogynecology [facility] Main provided: Pam Wang Staff Physician, Department of Urogynecology and Pelvic Floor Disorders Allergies As of Date: 09/12/2023 Noted Allergy Reaction RISPERIDONE 07/27/2021 5 - Intolerance Comments: Breast discharge POISON BRENDA EXTRACT 04/06/2023 2 - Rash Date Reviewed: 09/11/2023 Reviewed by: Jenifer Barnard RN - Fully Assessed Reason for Visit: Patient Update [1234] Primary Visit Diagnosis:Voiding dysfunction [N39.8] Other Visit Diagnosis:History of suburethral sling procedure [Z98.890] Order(s):CYSTOSCOPY [facility] [[id number]] Order #: [id number] Prescriptions as of 09/12/2023 - atenolol (TENORMIN) [...] content not included)... Normal [facility] CNOVon 09-11-2023 CNOV Office Visit (UROSMN ) ----- MARY LEAL ([id number]) 1970 F Date Time Provider Department 09/11/23 [...] Jenifer Barry RN 09/11/2023 11:37 AM Signed [facility] URODYNAMICS LAB URODYNAMIC [...] allergy: No Females- Is patient : No Memorandum Statement Clerk offered:Patient declines B/O UA: YES DIP: UROFLOWMETRY [...] Jairon Lai MD 09/11/2023 1:18 PM Signed [facility] FOR FEMALE [...] Jairon Lai MD Referring Provider: PAM WANG [[id number]] Allergies As of Date: 09/11/2023 Noted Allergy Reaction RISPERIDONE 07/27/2021 5 - Intolerance Comments: Breast discharge POISON BRENDA EXTRACT 04/06/2023 2 - Rash Date Reviewed: [...] content not included)... Normal [facility] Orders Onlyon 09-01-2023 Orders Only [id number] Darrian Leal 1970 F Date Provider Department Center 09/01/2023 Karli-GIANA MORALES [facility] PSYCH Gerardo Heal No family history on file Normal [facility] [place] 08-23-2023 Behavioral Health Telemedicine [id number] Mary Leal 1970 Date Provider Department Center 08/23/2023 GIANA JAMES [facility] PSYCH Gerardo Heal No family history on file Level of Service:80121 MD OFFICE/OUTPATIENT ESTABLISHED MOD MDM 30-39 MIN Normal [facility] Orders Onlyon 08-21-2023 Orders Only [id number] Darrian Leal 1970 F Date Provider Department Center 08/21/2023 GIANA JAMES [facility] PSYCH Gerardo Heal No family history on file Normal [facility] BASIC METABOLIC PANELon 10-0 Anion gap [Moles/Vol] 1 mmol/L Low 8-12 [facility] [employer] [facility] Comment on above: Performed By: #### 4 [id number], [id number], [id number], [id number] #### [address] Calcium [Mass/Vol] 9.2 mg/dL Normal 8.4-10.4 [facility] [employer] [facility] Comment on above: Performed By: #### 4 [id number], [id number], [id number], [id number] #### [address] Chloride [Moles/Vol] 105 mmol/L Normal 96-109 [facility] [email or web address] Comment on above: Performed By: #### 4 [id number], [id number], [id number], [id number] #### [facility] [address] [place] [address] [place] CO2 [Moles/Vol] 32 mmol/L High 22-30 [facility] [email or web address] Comment on above: Performed By: #### 4 [id number], [id number], [id number], [id number] #### [address] Creatinine [Mass/Vol] 0.67 mg/dL Normal 0.52-1.04 [facility] [employer] [facility] Comment on above: Performed By: #### 4 [id number], [id number], [id number], [id number] #### [address] GLOMERULAR FILTRATION RATE ML/MIN/1.73 SQ M.PREDICTED >90.0 Normal >=60.0 [facility] [email or web address] Comment on above: Result Comment: eGFR calculation [...] Kidney Int Suppl.2013;3:1-150 Performed By: #### 4 [id number], [id number], [id number], [id number] #### [facility] [address] [place] [address] [facility] Glucose [Mass/Vol] 104 mg/dL High 65-100 [facility] Comment on above: Performed By: #### 4 [id number], [id number], [id number], [id number] #### [address] [place] [address] [facility] Potassium [Moles/Vol] 4.6 mmol/L Normal 3.6-5.1 [facility] Comment on above: Performed By: #### 4 [id number], [id number], [id number], [id number] #### [address] [place] [address] [facility] Sodium [Moles/Vol] 138 mmol/L Normal 135-147 [facility] Comment on above: Performed By: #### 4 [id number], [id number], [id number], [id number] #### [address] [place] [address] [place] Urea nitrogen [Mass/Vol] 16 mg/dL Normal 8-26 [facility] Comment on above: Performed By: #### 4 [id number], [id number], [id number], [id number] #### [address] [place] [address] [facility] Basic metabolic panel aka Ch em 808-12-2023 Anion gap [Moles/Vol] 1 mmol/L Low 8 - 12 mmol/L [facility] Calcium [Mass/Vol] 9.2 mg/dL 8.4 - 10. 4 mg/dL [facility] Calcium hydrogen phosphate dihydrate crystals LM Ql (Urine sed) 16 mg/dL 8 - 26 mg/dL [facility] Chloride [Moles/Vol] 105 mmol/L 96 - 10 9 mmol/L [facility] CO2 (BldMV) [Moles/Vol] 32 mmol/L High 22 - 30 mmol/L [facility] Creatinine [Mass/Vol] 0.67 mg/dL 0.52 - 1.04 mg/dL [facility] GFR/1.73 sq M.predicted MDRD (S/P/Bld) [Vol rate/Area] - PINF [facility] Comment on above: eGFR calculation bas [...] 104 mg/dL High 65 - 100 mg/dL [facility] Interpretation and review of laboratory results Abnormal [facility] Potassium [Moles/Vol] 4.6 mmol/L 3.6 - 5.1 mmol/L [facility] Sodium [Moles/Vol] 138 mmol/L 135 - 147 mmol/L [facility] CBC AND DIFFERENTIALon 08-12 ABSOLUTE BASOPHIL 0.0 x10*3/uL Normal 0.0-0.1 [facility] Comment on above: Performed By: #### 4 [id number] #### [place] [id number] ABSOLUTE EOSINOPHIL 0.1 x10*3/uL Normal 0.1-0.3 [facility] Comment on above: Performed By: #### 4 [id number] #### [place] [id number] ABSOLUTE IMMATURE GRANULOCYTES 0.0 x10*3/uL Normal 0.0-0.1 [facility] Comment on above: Performed By: #### 4 [id number] #### [address] ABSOLUTE LYMPH 1.6 x10*3/uL Normal 1.2-3.3 [facility] Comment on above: Performed By: #### 4 [id number] #### [address] ABSOLUTE MONO 0.3 x10*3/uL Normal 0.2-0.6 [facility] Comment on above: Performed By: #### 4 [id number] #### [address] ABSOLUTE NEUTROPHIL 3.1 x10*3/uL Normal 2.4-6.6 [facility] Comment on above: Performed By: #### 4 [id number] #### [address] Basophils/100 WBC (Bld) 0.8 % Normal [facility] Comment on above: Performed By: #### 4 [id number] #### [address] Eosinophils/100 WBC (Bld) 2.7 % Normal [facility] Comment on above: Performed By: #### 4 [id number] #### [address] Erythrocyte distribution width (RBC) [Ratio] 13.0 % Normal 11.5-14.5 [facility] Comment on above: Performed By: #### 4 [id number] #### [address] Hematocrit (Bld) [Volume fraction] 37.5 % Normal 33.6-46.8 [facility] Comment on above: Performed By: #### 4 [id number] #### [address] Hemoglobin (Bld) [Mass/Vol] 11.8 g/dL Normal 11.7-15.8 [facility] Comment on above: Performed By: #### 4 [id number] #### [address] Immature granulocytes/100 WBC (Bld) 0.4 % Normal [facility] Comment on above: Performed By: #### 4 [id number] #### [address] Lymphocytes/100 WBC (Bld) 31.5 % Normal [facility] Comment on above: Performed By: #### 4 [id number] #### [address] MCH (RBC) [Entitic mass] 26.5 pg Low 27.5-32.3 [facility] Comment on above: Performed By: #### 4 [id number] #### [address] MCHC (RBC) [Mass/Vol] 31.5 g/dL Normal 30.7-35.5 [facility] Comment on above: Performed By: #### 4 [id number] #### [address] MCV (RBC) [Entitic vol] 84.3 fL Normal 80.2-99 [facility] Comment on above: Performed By: #### 4 [id number] #### [address] Monocytes/100 WBC (Bld) 5.4 % Normal [facility] Comment on above: Performed By: #### 4 [id number] #### [address] Neutrophils/100 WBC (Bld) 59.2 % Normal [facility] Comment on above: Performed By: #### 4 [id number] #### [address] NUCLEATED RED BLOOD CELLS AUTO 0.0 % Normal 0.0-1.0 [facility] Comment on above: Performed By: #### 4 [id number] #### [address] PLATELET COUNT 299 x10*3/uL Normal 150-400 [facility] Comment on above: Performed By: #### 4 [id number] #### [address] RED BLOOD CELL COUNT 4.45 x10*6/uL Normal 3.60-5.20 [facility] Comment on above: Performed By: #### 4 [id number] #### [address] WHITE BLOOD CELLS 5.2 x10*3/uL Normal 4.3-10.3 [facility] Comment on above: Performed By: #### 4 [id number] #### [place] [address] CBC with differentialOrdered By: Background Lab on 08-12-2023 Absolute Immature Granulocytes 0.0 [facility] Age [Time] 84.3 fL 80.2 - 99 fL [facility] Age [Time] 26.5 pg Low 27.5 - 32.3 pg [facility] Age [Time] 31.5 g/dL 30.7 - 35.5 g/dL [facility] B. burgdorferi IgM IB Ql (CSF) 31.5 % [facility] Basophils (Bld) [#/Vol] 0.0 10*3/uL [facility] Basophils/100 WBC (Body fld) 0.8 % [facility] Eosinophils (Bld) [#/Vol] 1.6 10*3/uL [facility] Eosinophils (Bld) [#/Vol] 0.3 10*3/uL [facility] Eosinophils (Bld) [#/Vol] 0.1 10*3/uL [facility] Eosinophils/100 WBC (Bld) 2.7 % [facility] Erythrocyte distribution width (RBC) [Ratio] 13.0 % 11.5 - 14.5 % [facility] Hematocrit (Bld) [Volume fraction] 37.5 % 33.6 - 46.8 % [facility] Hexanoylglycine (U) [Moles/Vol] 11.8 g/dL 11.7 - 15.8 g/dL [facility] Immature granulocytes/100 WBC (Bld) 0.4 % [facility] Interpretation and review of laboratory results Abnormal [facility] Monocytes/100 WBC (Bld) 5.4 % [facility] Neurotensin (P) [Mass/Vol] 59.2 % [facility] Neutrophils (Bld) [#/Vol] 3.1 10*3/uL [facility] Nucleated RBC/100 WBC (Bld) [Ratio] 0.0 % 0.0 - 1.0 % [facility] Platelets (Bld) [#/Vol] 299 10*3/uL [facility] RBC (Bld) [#/Vol] 4.45 10*6/uL [employer] [facility] WBC (Bld) [#/Vol] 5.2 10*3/uL [facility] ABDOMEN PELVIS WITH IV CO [...] 20 RAC Omni 300 100 ml Normal [facility] HEPATIC FUNCTION PANELon Albumin [Mass/Vol] 4.0 g/dL Normal 3.5-5.0 [facility] Comment on above: Performed By: #### 4 [id number], [id number], [id number], [id number] #### [address] ALK PHOS 104 U/L Normal 24-126 [facility] Comment on above: Performed By: #### 4 [id number], [id number], [id number], [id number] #### [address] [place], [place] [address] ALT [Catalytic activity/Vol] 50 U/L High 4-35 [facility] Comment on above: Performed By: #### 4 [id number], [id number], [id number], [id number] #### [address] [place] [address] [facility] AST [Catalytic activity/Vol] 59 U/L High 3-47 [facility] Comment on above: Performed By: #### 4 [id number], [id number], [id number], [id number] #### [address] Bilirubin [Mass/Vol] 0.1 mg/dL Low 0.2-1.6 [facility] Comment on above: Performed By: #### 4 [id number], [id number], [id number], [id number] #### [address] Bilirubin.indirect [Mass/Vol] 0.1 mg/dL Normal <=0.5 [facility] Comment on above: Performed By: #### 4 [id number], [id number], [id number], [id number] #### [address] Protein [Mass/Vol] 6.6 g/dL Normal 6.3-8.2 [facility] Comment on above: Performed By: #### 4 [id number], [id number], [id number], [id number] #### [address] Hepatic Function Panelon Albumin (Syn fld) [Mass/Vol] 4.0 g/dL 3.5 - 5.0 g/dL [facility] Aldosterone (U) [Mass/Vol] 104 U/L 24 - 126 U/L [facility] ALT [Catalytic activity/Vol] 50 U/L High 4 - 35 U/L [facility] AST [Catalytic activity/Vol] 59 U/L High 3 - 47 U/L [facility] Bilirubin [Mass/Vol] 0.1 mg/dL Low 0.2 - 1 .6 mg/dL [facility] Bilirubin.conjugated [Mass/Vol] 0.1 mg/dL NINF - 0.5 mg/dL [facility] Protein [Mass/Vol] 6.6 g/dL 6.3 - 8.2 g/dL [facility] LIPASEon 08-12-2023 Lipase [Catalytic activity/Vol] 11 U/L Low 23-300 [facility] Comment on above: Performed By: #### 4 [id number], [id number], [id number], [id number] #### [place] [address] [place] [address] [place] Lipaseon 08-12-2023 Lipase [Catalytic activity/Vol] 11 U/L Low 23 - 300 U/L [facility] No Panel Informationon 08-12 Extra Tube Hold for add-ons. [facility] Interpretation and review of laboratory results Abnormal [facility] POCT ED/FC/GSC Urine PregOrd ered By: Della Hays on 08-12-2023 Beta HCG ( test) Ql (U) Negative [facility] Interpretation and review of laboratory results Normal [facility] Laminating Machine Operator Acceptable yes [facility] TROPONIN Ion 08-12-2023 Troponin I.cardiac [Mass/Vol] ng/mL Normal <=0.033 [facility] Comment on above: Result Comment: Nega tive: No detectable troponin-I. Performed By: #### 4 [id number] #### [place] [address] [place] TROPONIN I SERIESon 08-12-20 Troponin I.cardiac [Mass/Vol] ng/mL Normal <=0.033 [facility] Comment on above: Result Comment: Nega tive: No detectable troponin-I. Performed By: #### 4 [id number], [id number], [id number], [id number] #### [place] [address] [place] Troponin I (One time)on Interpretation and review of laboratory results Normal [facility] Troponin I.cardiac [Mass/Vol] ng/mL NINF - 0.033 ng/mL [facility] Comment on above: Negative: No detectable troponin-I. [facility] Troponin I - Series (X 3)on 08-12-2023 Interpretation and review of laboratory results Normal [facility] Troponin I.cardiac [Mass/Vol] ng/mL NINF - 0.033 ng/mL [facility] Comment on above: Negative: No detectable troponin-I. [facility] URINALYSIS WITH REFLEX CULTU REon 08-12-2023 Appearance (U) Clear Normal [facility] Comment on above: Performed By: #### 4 [id number] #### [address] BILIRUBIN UA Negative Normal Negative [facility] Comment on above: Performed By: #### 4 [id number] #### [address] Color (U) Yellow Normal [facility] Comment on above: Performed By: #### 4 [id number] #### [address] Glucose Ql (U) Negative Normal Negative [facility] Comment on above: Performed By: #### 4 [id number] #### [address] Ketones Ql (U) Negative Normal Negative [facility] Comment on above: Performed By: #### 4 [id number] #### [address] LEUKOESTERASE Negative Normal Negative [facility] Comment on above: Performed By: #### 4 [id number] #### [address] MUCOUS-URINE Occasional Normal [facility] Comment on above: Performed By: #### 4 [id number] #### [address] Nitrite Ql (U) Negative Normal Negative [facility] Comment on above: Performed By: #### 4 [id number] #### [address] OCCULT BLD Negative Normal Negative [facility] Comment on above: Performed By: #### 4 [id number] #### [address] PH, URINE 5.0 Normal [facility] Comment on above: Performed By: #### 4 [id number] #### [address] Protein Ql (U) Negative Normal Negative [facility] Comment on above: Performed By: #### 4 [id number] #### [address] RBC LM.HPF (Urine sed) [#/Area] /[HPF] Normal <=5 [facility] Comment on above: Performed By: #### 4 [id number] #### [address] SPECIFIC GRAVITY, URINE 1.025 Normal [facility] Comment on above: Performed By: #### 4 [id number] #### [place] [address] SQUAMOUS EPI CELLS 51 /LPF Normal [facility] Comment on above: Performed By: #### 4 [id number] #### [place] [address] UROBILINOGEN UA Negative Normal <2.0 [facility] Comment on above: Performed By: #### 4 [id number] #### [place] [address] WBC LM.HPF (Urine sed) [#/Area] 2 /[HPF] Normal <=5 [facility] Comment on above: Performed By: #### 4 [id number] #### [address] Urinalysis complete W Reflex Culture panel (U)on 08-12-2023 Acetone [Mass/Vol] Negative Negative [employer] [facility] Appearance (Body fld) Clear Gen [facility] Bilirubin Ql (U) Negative Negative [facility] Color (Stone) Yellow [facility] G6PD (RBC) [Catalytic activity/Vol] Negative Negative [facility] Hemoglobin Ql (U) [facility] Leukocyte esterase Test strip Ql (U) Negative Negative [facility] Mucor racemosus IgE Qn (S) Occasional /LPF [facility] Nitrite Test strip (U) [Mass/Vol] Negative Negative [facility] pH (Migue fld) 5.0 [facility] Protein (U) [Mass/Vol] Negative Negative [facility] [place] IgE Qn (S) Negative Negative [facility] Specific gravity (U) [Rel density] 1.025 [facility] Spherocytes LM Ql (Bld) 51 /LPF [facility] Urobilinogen Qn (U) Negative [facility] - 2.[address] [facility] WBC (U) [#/Vol] 2 /uL [facility] 36on 08-02-2023 36 Call placed to alex spears to discuss how often she is taking Miralax. Patient is taking Miralax once daily as instructed. Per Alba Montague she was instructed that she can take it twice a day. Also advised patient that Alba Montague will be consulting with the physician who performed her procedure. Normal [facility] Orders Onlyon 08-02-2023 Orders Only [id number] Darrian Leal 1970 F Date Provider Department Center 08/02/2023 BRADLYLISJASIELE [facility] PS[facility]CH Gerardo Heal No family history on file [facility] CNOVon 07-31-2023 CNOV Office Visit (SHERON ) ----- MARY LEAL ([id number]) 1970 F Date Time Provider Department 07/31/23 2:30 PM NELSY CHÁVEZ During your visit today, we recorded the following information about you: Pulse Blood pressure Weight Height 76/minute 136/96 69.9 kg 1.626 m Nelsy Chávez, DANN.GRAPHIC SPECIALIST 07/31/2023 5:35 PM Signed Female Pelvic Medicine [...] new Pain: no Abnormal Vaginal Discharge: no MANAGER AGRICULTURE 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 She has no history of an abnormal mammogram with cysts on US LMP: No LMP recorded. Patient has had a hysterectomy.; Menopause 3 years ago; hysterectomy in 2015: Menstrual history: NA; Deliveries: I have confirmed and edited as necessary, the PFSH obtained by others. Nelsy Chávez APRN.GRAPHIC SPECIALIST Memorandum Statement Clerk offered: Patient declines. OBJECTIVE: There were no [...] which included preparing to see the patient, [id number] patient care, completing clinical documentation, performing a [...] [R35.0] Nocturia [R35.1] Order(s):UA DIP, URINE (POC) [1957900] Order #: [id number]. #:[id number] 45-LAB URODYNAMICS I [[id number]] Order #: [id number] Prescriptions as of 07/31/2023 - atenolol (TENORMIN) [...] content not included)... Normal [facility] UA DIP, URINE (POC)on 2022 BILIRUBIN UA (POCT) Negative Negative [facility] CLARITY UA (POCT) [facility] COLOR UA (POCT) Yellow [facility] GLUCOSE UA (POCT) Negative Negative mg/dL [facility] Hemoglobin Ql (U) Negative Negative [facility] KETONE UA (POCT) Negative Negative mg/dL [facility] LEUKOCYTES UA (POCT) Negative Negative [facility] NITRITE UA (POCT) Negative Negative [facility] PH UA (POCT) 5.0 4.5 - 8.0 [facility] Protein Ql (U) Negative Negative mg/dL [facility] SPECIFIC GRAVITY UA (POCT) 1.010 1.005 - 1.030 [facility] UROBILINOGEN UA (POCT) 0.2 E.U./dL Brenda l E.U./dL [facility] HISTOLOGY - TISSUE EXAMon LAB AP [...] the Clinical Laboratory Improvement Amendments of 1998. [facility] Comment on above: Performed By: #### L [id number] ####[facility] ([facility])[address] [facility] [place] [address] LAB AP CASE REPORT [facility] Comment on above: Result Comment: Surg ical Pathology Case: [id number] Authorizing Provider: Matteo Quinones MD Collected: 07/25/2023 1126 Ordering Location: [facility] Received: 07/25/2023 1233 [facility] OR Pathologist: Boni Benito MD Specimens: A) - Small Intestine, Duodenum, R/O CELIAC B) - Gastric, R/O H PYLORI C) - Distal Esophagus, R/O EOE D) - Proximal Esophagus, R/O EOE E) - Small Intestine, Terminal Ileum, R/O COLITIS Performed By: #### L [id number] ####[facility] (BEAKER)[address] [place] [address] LAB AP CLINICAL INFORMATION Order Diagnoses [facility] Comment on above: Result Comment: K21. 9 - Gastroesophageal reflux disease without esophagitis [ICD-10-CM] R11.0 - Nausea [ICD-10-CM] R19.7 - Diarrhea, unspecified type [ICD-10-CM] Performed By: #### L [id number] ####[facility] (BEAKER)[address] [place] [address] LAB AP GROSS DESCRIPTION [facility] Comment on above: Result Comment: [...] Goetz, PGY 1 Performed By: #### L [id number] ####[facility] (BEAKER)[address] [place] [address] LAB AP MICROSCOPIC DESCRIPTION Microscopic examination performed. [facility] Comment on above: Performed By: #### L [id number] ####[facility] (BEAKER)[address] [place] [address] LAB AP REPORT FINAL DIAGNOSIS NARRATIVE [employer] [facility] Comment on above: Result Comment: A. D [...] or malignancy identified. Performed By: #### L [id number] ####[facility] (BEAKER)[place] [address] [facility] 07-25-2023 ----- ----- Attestation signed by Matteo Quinones [...] history on file. Allergies Risperidone and Poison brenda Medications (Not in a hospital admission) Review [...] loose bowel movements. Plan EGD and colonoscopy [facility] HP H&P reviewed. The pa sim was examined and there are no changes to the H&P. [facility] NURSNOTEon 07-25-2023 NURSNOTE ANASTOMOSIS SITE REACHED [facility] Orders Onlyon 07-25-2023 Orders Only [id number] Darrian Leal en 1970 F Date Provider Department [facility] 07/25/202336870-KEFMWFILIPE PAZ [facility] Pavi No family history on file [facility] POCT GLUCOSE METER UNSOLICIT ED RESULTSon 07-25-2023 Glucose [Mass/Vol] 87 mg/dL Normal 70-[address] [facility] Comment on above: Order Comment: Waive d Testing in the ED is performed under the ED CLIA certificate #[id number]. Result Comment: dhol as Performed By: #### L [id number] #### [facility] (BE[facility]ER) [address] [place] [address] Orders Onlyon 07-21-2023 Orders Only [id number] ElvisDarrian arriaza en 1970 F Date Provider Department [facility] 07/21/2023 ARELI PEREA [facility] No family history on file [facility] Orders Onlyon 07-19-2023 Orders Only [id number] ElvisDarrian en 1970 F Date Provider Department [facility] 07/19/2023 GIANA JAMES [facility] PS[facility]CH Gerardo Heal No family history on file [facility] Prep for Procedureon 023 Prep for Procedure [id number] Elvis,Krist en 1970 F Date Provider Department [facility] 07/17/2023 Sakina-MATTEO QUINONES [facility] No family history on file [facility] HPon 07-11-2023 HP Formatting of this n ote is different from the original. Images from the original note were not included. [facility] [address] [place] [phone] SUBJECTIVE: Patient ID: Mary Leal is a [...] Takes Dexilant daily, sees Dr. Montague at [facility]. HISTORY: Past Medical History: Diagnosis Date ADD (attention deficit disorder) Anxiety Asthma Bipolar disorder ([facility]) Depression Dysphagia Gastric paresis GERD (gastroesophageal reflux disease) Headache migraines History of pleurisy STATES 2 WEEKS AGO Hypertension Obesity Primary insomnia 07/07/2020 Rectal bleeding Restless leg syndrome Visual impairment one contact left, glasses Past Surgical History: Procedure Laterality Date APPENDECTOMY ARTHROSCOPIC REPAIR ACL Left COLONOSCOPY COLONOSCOPY with bx's N/A 03/20/2020 Performed by Noman Mayo MD at [facility] ENDOSCOPY EGD, DILATATION N/A 09/25/2020 Performed by Noman Mayo MD at [facility] ENDOSCOPY FOOT SURGERY 06/25/2020 left foot surgery HYSTERECTOMY LASER LINGUAL TONISILLECTOMY Circumferential 07/08/2021 Performed by Areli Avila MD PhD at [facility] MRI FOOT LEFT NECK SURGERY PLANTAR FASCIECTOMY RELEASE PHARYNGEAL SCAR CPT 18895 Circumferential 07/08/2021 Performed by Areli Avila MD PhD at [facility] RESECTION SUBMUCOSAL NASAL Bilateral 02/11/2021 Performed by Areli Avila MD PhD at [facility] SEPTOPLASTY Circumferential 02/11/2021 Performed by Areli Avila MD PhD at [facility] TONSILLECTOMY Bilateral 02/11/2021 Performed by Areli Avila MD PhD at [facility] uvuloplasty N/A 02/11/2021 Performed by Areli Avila MD PhD at [facility] Family History Problem Relation Age of Onset [...] tablet (3 mg total) by mouth nightly. xjlusovveps-rppiwdzsh-npt anter (TRELEGY ELLIPTA) 100-62.5-25 mcg blister with [...] day, no mor (more content not included)... [facility] Orders Onlyon 06-26-2023 Orders Only [id number] Darrian Leal 1970 F Date Provider Department Center 06/26/2023 GIANA JAMES [facility] PSYCH Gerardo Heal No family history on file [facility] Office Visit (Cardiology)on 06-13-2023 Follow-up visit Diagnoses/Problems Assessed Chest pain (786.50) (R07.9) Elevated troponin (790.6) (R77.8) Fatigue (780.79) (R53.83) Never a smoker Overweight with body mass index (BMI) of 27 to 27.9 in adult (278.02,V85.23) (E66.3,Z68.27) Orders Elevated troponin IO EKG Electrocardiogram- 12 Lead; Status:Active - Perform Order,Retrospective Authorization; Requested for:[id number]; Overweight with body mass index (BMI) of 27 to 27.9 in adult Healthy Weight Tips; Status:Complete - Retrospective Authorization; Done: [id number] Some eating tips that can help you lose weight.; Status:Complete - Retrospective Authorization; Done: [id number] SocHx: Never a smoker Tobacco Use Screening; Status:Complete; Done: [id number] Patient Instructions Please bring all medicines, vitamins, [...] weakness, dizziness, diaphoresis with recent work-up that [facility] emergency room. Reportedly her troponins are [...] of which are currently being investigated at [facility] (now her fourth GI specialist). Last year while in [place] she had similar issues with elevated troponins in the ED and underwent heart catheterization that did not reveal any specific significant disease, details of the discharge summary are reviewed She underwent recent stress perfusion imaging at [facility], the report is reviewed, she has [...] disease, will investigate the troponin rise at [facility] however I believe this is likely a non-NM troponin elevation, likely associated with underlying inflammatory [...] Signs Recorded: 13Jun2023 10:37AM Heart Rate70, Apical Gpizjbnt206, RUE, Sitting Hzbuxerte57, RUE, Sitting Height5 ft 4 in Mdsjdx442 lb BMI Hlodtajccz37.46 kg/m2 BSA Calculated1.78 Tobacco Useb) No PHQ-2 [...] Screening.on 023 Adult depression screening assessment No [facility] 320 DO Work Phone: Adult depression screening assessment Yes [facility] io [facility] 320 DO Work Phone: Adult depression screening assessment Moderate (10-14) [facility] hio Heart-[facility] 320 DO Work Phone: Fall risk assessment a) No falls within the last year [facility] 320 DO Work Phone: Tobacco use status CP b) No [facility] 320 DO Work Phone: Tobacco Screening. 1-Several days MP -[facility] 320 DO Work Phone: Tobacco Screening. 3-Nearly every day -[facility] 320 DO Work Phone: Tobacco Screening. 0-Not at all [facility] 320 DO Work Phone: Tobacco Screening. Somewhat Difficult [facility] 320 DO Work Phone: STR cardiac stress/lexiscano n 06-09-2023 STR cardiac stress/lexiscan [facility] [place] [address] Cardiac Stress Test Signed Patient: Mary Leal MR#: [id number] 863 : 1970 Acct:[id number] Age/Sex: 53 / F ADM Date: 06/05/23 Loc: ER Room: Type: [facility] ER Attending Dr: Copies to: [...] EDMONDS 06/09/23 1550 Signed By: 06/10/23 0903 [facility] Telemedici neon 06-08-2023 Behavioral Health Telemedicine [id number] Mary Leal 1970 F Date Provider Department Center 06/08/2023 [facility]IANA JAMES [facility] PSYCH Gerardo Heal No family history on file Level of Service:18500 MD OFFICE/OUTPATIENT ESTABLISHED MOD MDM 30-39 MIN Reason for Visit and Comments: Telehealth Audio/video Visit [871] Normal [facility] NM mirtha perf SPECT rest stron 06-08-2023 NM mirtha perf SPECT rest str [facility] [place] [address] Nuclear Medicine Report Signed Patient: Mary Leal MR#: [id number] 863 : 1970 Acct:[id number] Age/Sex: 53 / F ADM Date: 06/05/23 Loc: ER Room: Type: [facility] ER Attending Dr: Copies to: [...] EDMONDS 06/08/23 1540 Signed By: 06/09/23 1532 [facility] 36on 06-05-2023 36 Patient calls wonder ing about her calprotectin being high. Please advise [facility] Activated partial thrombopla stin time (aPTT) in platelet poor plasma by coagulation aOrdered By: Anibal Valle on 06-05-2023 aPTT Coag (PPP) [Time] 28.0 s 25.1-36.5 [facility] B-Type Natriuretic Peptideon 06-05-2023 Natriuretic peptide B (Bld) [Mass/Vol] 39.0 pg/mL Normal 5-100 [facility] Comment on above: Result Comment: PERF ORMED BY: [facility] [address] [place] [id number] PATHOLOGIST MINE SHIFTER LEVAR CASE M.D. Performed By: #### H S TROP, BNP, BMP, CBC, PTT, PT ####[place] [id number] [facility] Basic Metabolic Panelon 05-08 Anion gap [Moles/Vol] 10.6 mmol/L Normal 6.0-15.0 [facility] Comment on above: Performed By: #### H S TROP, BNP, BMP, CBC, PTT, PT ####[place] [id number] [facility] Calcium [Mass/Vol] 9.0 mg/dL Normal 8.6-10.3 [facility] Comment on above: Performed By: #### H S TROP, BNP, BMP, CBC, PTT, PT ####[address] [address] [facility] Chloride [Moles/Vol] 108 mmol/L High 98-107 [facility] Comment on above: Performed By: #### H S TROP, BNP, BMP, CBC, PTT, PT ####[address] [address] [facility] CO2 [Moles/Vol] 23.2 mmol/L Normal 21.0-31.0 [facility] Comment on above: Performed By: #### H S TROP, BNP, BMP, CBC, PTT, PT ####[address] [address] [facility] Creatinine [Mass/Vol] 0.67 mg/dL Normal 0.60-1.20 [facility] Comment on above: Performed By: #### H S TROP, BNP, BMP, CBC, PTT, PT ####[place] [address] [place] [id number] [facility] Creatinine Clr Calc Pharmacy 97.82 [facility] Comment on above: Result Comment: PERF ORMED BY: [facility] [address] [place] [address] PATHOLOGIST MINE SHIFTER LEVAR CASE M.D. Performed By: #### H S TROP, BNP, BMP, CBC, PTT, PT ####[place] [address] [place] [id number] [facility] GFR/1.73 sq M.predicted MDRD (S/P/Bld) [Vol rate/Area] mL/min/{1.73_m2} [facility] Comment on above: Performed By: #### H S TROP, BNP, BMP, CBC, PTT, PT ####[place] [address] Glucose [Mass/Vol] 106 mg/dL High 70-100 [facility] Comment on above: Result Comment: [place] Glucose Reference Range is dependent on time and content of last meal. Glucose of more than 200 mg/dL in a nonstressed, ambulatory subject supports the diagnosis of Diabetes Mellitus. ADA recommended reference range Performed By: #### H S TROP, BNP, BMP, CBC, PTT, PT ####[place] [address] [place] [phone] [facility] Potassium [Moles/Vol] 3.8 mmol/L Normal 3.5-5.1 [facility] Comment on above: Performed By: #### H S TROP, BNP, BMP, CBC, PTT, PT ####[place] [address] [place] [phone] [facility] Sodium [Moles/Vol] 138 mmol/L Normal 136-145 [facility] Comment on above: Performed By: #### H S TROP, BNP, BMP, CBC, PTT, PT ####[place] [address] [place] [id number] [facility] Urea nitrogen [Mass/Vol] 10 mg/dL Normal 7-25 [facility] Comment on above: Performed By: #### H S TROP, BNP, BMP, CBC, PTT, PT ####[facility] [address] [place] [address] [place] Basophils Auto (Bld) [#/Vol] Ordered By: Anibal Valle on 06-05-2023 Basophils (Bld) [#/Vol] 0.0 10*3/uL 0.0-0.2 [facility] Basophils/100 WBC Auto (Bld) Ordered By: Anibal Valle on 06-05-2023 Basophils/100 WBC (Bld) 0.4 % . [facility] Calcium [Mass/volume] in Ser um or PlasmaOrdered By: Anibal Valle on 06-05-2023 Calcium [Mass/Vol] 9.0 mg/dL 8.6-10.3 [facility] Carbon dioxide, total [Moles /volume] in Serum or PlasmaOrdered By: Anibal Valle on 06-05-2023 CO2 [Moles/Vol] 23.2 mmol/L 21.0-31.0 [facility] Chloride [Moles/volume] in S jay or PlasmaOrdered By: Anibal Valle on 06-05-2023 Chloride [Moles/Vol] 108 mmol/L 98-107 [facility] Complete Blood Count Auto Di ffon 06-05-2023 Basophils (Bld) [#/Vol] 0.0 10*3/uL Normal 0.0-0.2 [facility] Comment on above: Result Comment: PERF ORMED BY: [facility] [address] [place] [address] PATHOLOGIST MINE SHIFTER LEVAR CASE M.D. Performed By: #### H S TROP, BNP, BMP, CBC, PTT, PT #### [facility] [address] Basophils/100 WBC (Bld) 0.4 % Normal . [facility] Comment on above: Performed By: #### H S TROP, BNP, BMP, CBC, PTT, PT #### [facility] [address] [place] [address] [place] Eosinophils (Bld) [#/Vol] 0.1 10*3/uL Normal 0.0-0.45 [facility] Comment on above: Performed By: #### H S TROP, BNP, BMP, CBC, PTT, PT #### [address] Eosinophils/100 WBC (Bld) 1.9 % Normal . [facility] Comment on above: Performed By: #### H S TROP, BNP, BMP, CBC, PTT, PT #### [address] Erythrocyte distribution width (RBC) [Ratio] 13.9 % Normal 11.9-15.3 [facility] Comment on above: Performed By: #### H S TROP, BNP, BMP, CBC, PTT, PT #### [address] Hematocrit (Bld) [Volume fraction] 34.4 % Normal 34.0-46.4 [facility] Comment on above: Performed By: #### H S TROP, BNP, BMP, CBC, PTT, PT #### [address] Hemoglobin (Bld) [Mass/Vol] 11.9 g/dL Normal 11.8-15.4 [facility] Comment on above: Performed By: #### H S TROP, BNP, BMP, CBC, PTT, PT #### [address] Lymphocytes (Bld) [#/Vol] 1.8 10*3/uL Normal 1.00-4.8 [facility] Comment on above: Performed By: #### H S TROP, BNP, BMP, CBC, PTT, PT #### [address] Lymphocytes/100 WBC (Bld) 41.0 % Normal . [facility] Comment on above: Performed By: #### H S TROP, BNP, BMP, CBC, PTT, PT #### [address] MCH (RBC) [Entitic mass] 27.7 pg Normal 24.7-34.3 [facility] Comment on above: Performed By: #### H S TROP, BNP, BMP, CBC, PTT, PT #### [address] MCV (RBC) [Entitic vol] 80.2 fL Normal 80-100 [facility] Comment on above: Performed By: #### H S TROP, BNP, BMP, CBC, PTT, PT #### [address] Mean Corpuscular HGB Conc 34.5 g/dL Normal 32.0-35.0 [facility] Comment on above: Performed By: #### H S TROP, BNP, BMP, CBC, PTT, PT #### [address] Monocytes (Bld) [#/Vol] 0.3 10*3/uL Normal 0.0-0.8 [facility] Comment on above: Performed By: #### H S TROP, BNP, BMP, CBC, PTT, PT #### [address] Monocytes/100 WBC (Bld) 24.18 % High 0.00-20.00 [facility] Comment on above: Result Comment: For adults in ED, MDW > 20.0 may be associated with a higher risk of sepsis during the first 12 hrs of hospital admission Performed By: #### H S TROP, BNP, BMP, CBC, PTT, PT #### [address] Monocytes/100 WBC (Bld) 7.5 % Normal . [facility] Comment on above: Performed By: #### H S TROP, BNP, BMP, CBC, PTT, PT #### [address] Neutrophils (Bld) [#/Vol] 2.2 10*3/uL Normal 1.8-7.7 [facility] Comment on above: Performed By: #### H S TROP, BNP, BMP, CBC, PTT, PT #### [address] Neutrophils/100 WBC (Bld) 49.2 % Normal . [facility] Comment on above: Performed By: #### H S TROP, BNP, BMP, CBC, PTT, PT #### [facility] [address] NRBC% 0.1 /100{WBC} Normal 0-0.5 [facility] Comment on above: Performed By: #### H S TROP, BNP, BMP, CBC, PTT, PT #### [address] Platelet mean volume (Bld) [Entitic vol] 7.4 fL Normal 6.3-10.7 [facility] Comment on above: Performed By: #### H S TROP, BNP, BMP, CBC, PTT, PT #### [address] Platelets (Bld) [#/Vol] 336 10*3/uL Normal 150-450 [facility] Comment on above: Performed By: #### H S TROP, BNP, BMP, CBC, PTT, PT #### [address] RBC (Bld) [#/Vol] 4.29 10*6/uL Normal 3.60-5.00 [facility] Comment on above: Performed By: #### H S TROP, BNP, BMP, CBC, PTT, PT #### [address] WBC (Bld) [#/Vol] 4.4 10*3/uL Normal 3.8-11.6 [facility] Comment on above: Performed By: #### H S TROP, BNP, BMP, CBC, PTT, PT #### [address] Creatinine [Mass/volume] in Serum or PlasmaOrdered By: Anibal Valle on 06-05-2023 Creatinine [Mass/Vol] 0.67 mg/dL 0.60-1.20 [facility] ECG 12 lead ECGon 06-05-2023 ECG 12 lead ECG [facility] Main [place] [id number] Electrocardiograph Report Signed Patient: Mary Leal MR#: [id number] 863 : 1970 Acct:[id number] Age/Sex: 53 / F ADM Date: 06/05/23 Loc: ER Room: Type: [facility] ER Attending Dr: Ordering Provider: [...] was found Confirmed by ANIBAL VALLE DO ([id number]) on 06/05/2023 4:21:05 PM Referred By: Electronically Signed By:ANIBAL VALLE DO Transcribed By: MUS Signed By Anibal Valle DO 06/05 1621 Normal [facility] ECG 12 lead ECG [facility] Main [place] [id number] Electrocardiograph Report Signed Patient: Mary Leal MR#: [id number] 863 : 1970 Acct:[id number] Age/Sex: 53 / F ADM Date: 06/05/23 [...] was found Confirmed by ANIBAL VALLE DO ([id number]) on 06/05/2023 4:21:06 PM Referred By: Electronically Signed By:ANIBAL VALLE DO Transcribed By: MUS Signed By Anibal Valle DO 06/05 1621 Normal [facility] Eosinophils Auto (Bld) [#/Vo l]Ordered By: Anibal Valle on 06-05-2023 Eosinophils (Bld) [#/Vol] 0.1 10*3/uL 0.0-0.45 [facility] Eosinophils/100 WBC Auto (Bl d)Ordered By: Anibal Valle on 06-05-2023 Eosinophils/100 WBC (Bld) 1.9 % . [facility] Erythrocyte distribution wid th Auto (RBC) [Ratio]Ordered By: Anibal Valle on 06-05-2023 Erythrocyte distribution width (RBC) [Ratio] 13.9 % 11.9-15.3 [facility] Glucose [Mass/volume] in Ser um or PlasmaOrdered By: Anibal Valle on 06-05-2023 Glucose [Mass/Vol] 106 mg/dL 70-100 [facility] Comment on above: ADA recommended refe rence rangeRandom Glucose Reference Range is dependent on time and content of last meal. Glucose of more than 200 mg/dL in a nonstressed, ambulatory subject supports the diagnosis of Diabetes Mellitus. Hematocrit Auto (Bld) [Volum e fraction]Ordered By: Anibal Valle on 06-05-2023 Hematocrit (Bld) [Volume fraction] 34.4 % 34.0-46.4 [facility] Hemoglobin [Mass/volume] in BloodOrdered By: Anibal Valle on 06-05-2023 Hemoglobin (Bld) [Mass/Vol] 11.9 g/dL 11.8-15.4 [facility] Laboratory - CoagulationOrde red By: Anibal Valle on 06-05-2023 PT Coag (PPP) [Time] 12.0 s 9.0-12.9 [facility] Leukocytes [#/volume] correc herbert for nucleated erythrocytes in Blood by Automated counOrdered By: Anibal Valle on 06-05-2023 WBC corrected for nucl RBC Auto (Bld) [#/Vol] 4.4 10*3/uL 3.8-11.6 [facility] Lymphocytes Auto (Bld) [#/Vo l]Ordered By: Anibal Valle on 06-05-2023 Lymphocytes (Bld) [#/Vol] 1.8 10*3/uL 1.00-4.8 [facility] Lymphocytes/100 WBC Auto (Bl d)Ordered By: Anibal Valle on 06-05-2023 Lymphocytes/100 WBC (Bld) 41.0 % . [facility] MCH Auto (RBC) [Entitic mass ]Ordered By: Anibal Valle on 06-05-2023 MCH (RBC) [Entitic mass] 27.7 pg 24.7-34.3 [facility] MCHC Auto (RBC) [Mass/Vol]Or dered By: Anibal Valle on 06-05-2023 MCHC (RBC) [Mass/Vol] 34.5 g/dL 32.0-35.0 [facility] MCV Auto (RBC) [Entitic vol] Ordered By: Anibal Valle on 06-05-2023 MCV (RBC) [Entitic vol] 80.2 fL 80-100 [facility] Monocyte distribution width [Entitic volume] in Blood by AutomatedOrdered By: Anibal Valle on 06-05-2023 Monocyte distribution width Auto (Bld) [Entitic vol] 24.18 % 0.00-20.00 [facility] Comment on above: For adults in ED, MD W > 20.0 may be associated with a higher risk of sepsis during the first 12 hrs of hospital admission Monocytes Auto (Bld) [#/Vol] Ordered By: Anibal Valle on 06-05-2023 Monocytes (Bld) [#/Vol] 0.3 10*3/uL 0.0-0.8 [facility] Monocytes/100 WBC Auto (Bld) Ordered By: Anibal Valle on 06-05-2023 Monocytes/100 WBC (Bld) 7.5 % . [facility] Natriuretic peptide B [Mass/ Vol]Ordered By: Anibal Valle on 06-05-2023 Natriuretic peptide B (Bld) [Mass/Vol] 39.0 pg/mL 5-100 [facility] Neutrophils Auto (Bld) [#/Vo l]Ordered By: Anibal Valle on 06-05-2023 Neutrophils (Bld) [#/Vol] 2.2 10*3/uL 1.8-7.7 [facility] Neutrophils/100 WBC Auto (Bl d)Ordered By: Anibal Valle on 06-05-2023 Neutrophils/100 WBC (Bld) 49.2 % . [facility] No Panel InformationOrdered By: Anibal Valle on 06-05-2023 Estimated GFR (CKD-EPI) > 60.0 mL/Min [facility] Creatinine Clearance (Chem 97.82 [facility] Nucleated erythrocytes [Pres ence] in Blood by Automated countOrdered By: Anibal Valle on 06-05-2023 Nucleated RBC Auto Ql (Bld) 0.1 /100{WBC} 0-0.5 [facility] Partial Thromboplastin Timeo n 06-05-2023 aPTT Coag (Bld) [Time] 28.0 s Normal 25.1-36.5 [facility] Comment on above: Result Comment: PERF ORMED BY: [facility] [address] [place] [address] PATHOLOGIST MINE SHIFTER LEVAR CASE M.D. Performed By: #### H S TROP, BNP, BMP, CBC, PTT, PT ####[facility] [id number] [place] [id number] [facility] Platelet mean volume Auto (B ld) [Entitic vol]Ordered By: Anibal Valle on 06-05-2023 Platelet mean volume (Bld) [Entitic vol] 7.4 fL 6.3-10.7 [facility] Platelet poor plasma interna tional normalized ratio (INR) by coagulation assay (relatOrdered By: Anibal Valle on 06-05-2023 INR Coag (PPP) [Relative time] 1.0 {INR} [facility] Comment on above: INR Therapeutic [...] 06-05-2023 Platelets (Bld) [#/Vol] 336 10*3/uL 150-450 [facility] Potassium [Moles/volume] in Serum or PlasmaOrdered By: Anibal Valle on 06-05-2023 Potassium [Moles/Vol] 3.8 mmol/L 3.5-5.1 [facility] Prothrombin Time INRon 06-05 INR Coag (PPP) [Relative time] 1.0 {INR} Normal [facility] Comment on above: Result Comment: [...] BNP, BMP, CBC, PTT, PT #### [facility] [address] PT Coag (PPP) [Time] 12.0 s Normal 9.0-12.9 [facility] Comment on above: Performed By: #### H S TROP, BNP, BMP, CBC, PTT, PT #### [facility] [address] RBC Auto (Bld) [#/Vol]Ordere d By: Anibal Valle on 06-05-2023 RBC (Bld) [#/Vol] 4.29 10*6/uL 3.60-5.00 [facility] Serum or plasma anion gap de terminationOrdered By: Anibal Valle on 06-05-2023 Anion gap [Moles/Vol] 10.6 mmol/L 6.0-15.0 [facility] Sodium [Moles/volume] in Ser um or PlasmaOrdered By: Anibal Valle on 06-05-2023 Sodium [Moles/Vol] 138 mmol/L 136-145 [facility] Troponin I High Sensitivityo n 06-05-2023 Troponin I High Sensitivity 2.5 pg/mL Normal 0.0-15.0 [facility] Comment on above: Result Comment: PERF ORMED BY: [place] [address] PATHOLOGIST MINE SHIFTER LEVAR CASE M.D. Performed By: #### H S TROP #### [facility] [address] [place] [id number] [place] Troponin I High Sensitivity 2.6 pg/mL Normal 0.0-15.0 [facility] Comment on above: Result Comment: PERF ORMED BY: [place] [address] PATHOLOGIST MINE SHIFTER LEVAR CASE M.D. Performed By: #### H S TROP, BNP, BMP, CBC, PTT, PT ####[facility] [id number] [place] [address] [facility] Troponin I.cardiac [Mass/vol ume] in Serum or Plasma by Detection limit <= 0.01 ng/Ordered By: Anibal Valle on 06-05-2023 Troponin I.cardiac DL <= 0.01 ng/mL [Mass/Vol] 2.6 pg/mL 0.0-15.0 [facility] Urea nitrogen [Mass/volume] in Serum or PlasmaOrdered By: Anibal Valle on 06-05-2023 Urea nitrogen [Mass/Vol] 10 mg/dL 7-25 [facility] WBC Auto (Bld) [#/Vol]Ordere d By: Anibal Valle on 06-05-2023 WBC (Bld) [#/Vol] 4.4 10*3/uL 3.8-11.6 [facility] XR chest 1V portableon 06-05 XR chest 1V portable [facility] Main [address] [address] XRay Report Signed Patient: Mary Leal MR#: [id number] 863 : 1970 Acct:[id number] Age/Sex: 53 / F ADM Date: 06/05/23 Loc: ER Room: Type: PRE ER Attending Dr: Copies to: Ainbal Valle DO Ordering Provider: Anibal Valle DO [...] Andres Bullard M.D.06/05/2023 9:53 AM Dictation Location: [place] [address] Transcribed By: [facility] 06/05/23 0953 Dictated By: Andres Bullard DO 06/05/23 0952 Signed By: 06/05/23 0953 Normal [facility] 29on 05-31-2023 29 Addended by: KASSANDRA MONTAGUE on: 06/13/2023 03:40 PM Modules accepted: Orders Normal [facility] BASIC METABOLIC PANELon 05-07 Anion gap [Moles/Vol] 12 mmol/L Normal 7-20 [facility] Comment on above: Performed By: #### L [id number] #### [facility] (BEAKER) [address] [place] [address] Calcium [Mass/Vol] 9.8 mg/dL Normal 8.6-10.3 [facility] Comment on above: Performed By: #### L [id number] #### [facility] ([facility]) [address] [place] [address] Chloride [Moles/Vol] 105 mmol/L Normal 98-107 [facility] Comment on above: Performed By: #### L [id number] #### [facility] ([facility]ER) [address] [place] [address] CO2 [Moles/Vol] 27 mmol/L Normal 21-31 [facility] Comment on above: Performed By: #### L [id number] #### [facility] ([facility]) [address] [place] [address] Creatinine [Mass/Vol] 0.75 mg/dL Normal 0.60-1.20 [facility] Comment on above: Performed By: #### L [id number] #### [facility] ([facility]) [address] [place] [address] GLOMERULAR FILTRATION RATE ML/MIN/1.73 SQ M.PREDICTED 96.3 mL/min/1.73m*2 Normal >60.0 [facility] Comment on above: Result Comment: [facility]???s estimated glomerular filtration rate (eGFR) will [...] individuals. Performed By: #### L [id number] #### [facility] ([facility]) [address] [place] [address] Glucose [Mass/Vol] 103 mg/dL High 70-100 [facility] Comment on above: Performed By: #### L [id number] #### [facility] ([facility]) [address] [place] [address] Potassium [Moles/Vol] 4.6 mmol/L Normal 3.5-5.1 [facility] Comment on above: Performed By: #### L [id number] #### [facility] ([facility]) [address] [place] [address] Sodium [Moles/Vol] 139 mmol/L Normal 136-145 [facility] Comment on above: Performed By: #### L [id number] #### [facility] ([facility]) [address] [place] [address] Urea nitrogen [Mass/Vol] 16 mg/dL Normal 7-25 [facility] Comment on above: Performed By: #### L [id number] #### [facility] ([facility]) [address] [place] [address] UREA NITROGEN/CREATININE (MASS RATIO) IN SER/PLAS 21.3 Normal [facility] Comment on above: Performed By: #### L [id number] #### [facility] ([facility]) [address] [place] [address] C-REACTIVE PROTEINon 023 C REACTIVE PROTEIN (MG/L) IN SER/PLAS 2.7 mg/L Normal 0.0-7.0 [facility] Comment on above: Performed By: #### L [id number] #### [facility] ([facility]) [address] [place] [address] CALPROTECTIN STOOLon 023 CALPROTECTIN, FECAL 171 ug/g High <=49 [facility] Comment on above: Result Comment: REFE RENCE INTERVAL: Calprotectin, Fecal by Immunoassay Less than 50 ug/g.........Normal 50-120 ug/g...............Borderline elevated, test should be re-evaluated in 4-6 weeks. 121 ug/g or greater.......Elevated Performed By: [facility] [address] [place] [address] Stone Decorator: Moisés Moreau MD, PhD Performed By: #### L [id number] #### [facility] ([facility]) [address] [place] [address] CBC WITH AUTO DIFFERENTIALon 05-31-2023 Basophils (Bld) [#/Vol] 0.06 10*3/uL Normal 0.00-0.20 [facility] Comment on above: Performed By: #### L [id number] #### [facility] ([facility]) [address] [place] [address] Basophils/100 WBC (Bld) 0.9 % Normal 0.0-1.0 [facility] Comment on above: Performed By: #### L [id number] #### [facility] (BEAKER) [address] [place] [address] Eosinophils (Bld) [#/Vol] 0.09 10*3/uL Normal 0.00-0.50 [facility] Comment on above: Performed By: #### L [id number] #### [facility] (BEAKER) [address] [place] [address] Eosinophils/100 WBC (Bld) 1.4 % Normal 0.0-6.0 [facility] Comment on above: Performed By: #### L [id number] #### [facility] ([facility] [address] [place] [address] Erythrocyte distribution width (RBC) [Ratio] 12.7 % Normal 11.5-15.0 [facility] Comment on above: Performed By: #### L [id number] #### [facility] ([facility]) [address] [place] [address] ERYTHROCYTE MEAN CORPUSCULAR HEMOGLOBIN CONCENTRATION (G/DL) BY AUTOMATED 32.2 g/dL Normal 32.0-35.0 [facility] Comment on above: Performed By: #### L [id number] #### [facility] ([facility]) [address] [place] [address] Hematocrit (Bld) [Volume fraction] 37.9 % Normal 36.0-48.0 [facility] Comment on above: Performed By: #### L [id number] #### [facility] ([facility]) [address] [place] [address] Hemoglobin (Bld) [Mass/Vol] 12.2 g/dL Normal 12.0-15.0 [facility] Comment on above: Performed By: #### L [id number] #### [facility] ([facility]) [address] [place] [address] Immature granulocytes (Bld) [#/Vol] 0.02 10*3/uL Normal 0.00-0.20 [facility] Comment on above: Performed By: #### L [id number] #### [facility] ([facility]) [address] [place] [address] Immature granulocytes/100 WBC (Bld) 0.3 % Normal 0.0-1.0 [facility] Comment on above: Performed By: #### L [id number] #### [facility] ([facility]) [address] [place] [address] Lymphocytes (Bld) [#/Vol] 2.04 10*3/uL Normal 1.20-4.00 [facility] Comment on above: Performed By: #### L [id number] #### [facility] ([facility]) [address] [place] [address] Lymphocytes/100 WBC (Bld) 31.9 % Normal 20.0-45.0 [facility] Comment on above: Performed By: #### L [id number] #### [facility] ([facility]) [address] [place] [address] MCH (RBC) [Entitic mass] 27.0 pg Normal 27.0-33.0 [facility] Comment on above: Performed By: #### L [id number] #### [facility] ([facility]) [address] [place] [address] MCV (RBC) [Entitic vol] 83.8 fL Normal 82.0-98.0 [facility] Comment on above: Performed By: #### L [id number] #### [facility] ([facility]) [address] [place] [address] Monocytes (Bld) [#/Vol] 0.35 10*3/uL Normal 0.10-1.00 [facility] Comment on above: Performed By: #### L [id number] #### [facility] ([facility]) [address] [place] [address] Monocytes/100 WBC (Bld) 5.5 % Normal 5.0-12.0 [facility] Comment on above: Performed By: #### L [id number] #### [facility] ([facility]) [address] [place] [address] Neutrophils (Bld) [#/Vol] 3.83 10*3/uL Normal 1.60-7.60 [facility] Comment on above: Performed By: #### L [id number] #### [facility] ([facility]) [address] [place] [address] Neutrophils/100 WBC (Bld) 60.0 % Normal 40.0-72.0 [facility] Comment on above: Performed By: #### L [id number] #### [facility] ([facility]) [address] [place] [address] NRBC (PER 100 WBCS) BY AUTOMATED COUNT 0.0 % Normal 0 [facility] Comment on above: Performed By: #### L [id number] #### [facility] ([facility]) [address] [place] [address] PLATELETS (10*3/UL) IN BLOOD AUTOMATED COUNT 485 10*3/uL High 150-400 [facility] Comment on above: Performed By: #### L [id number] #### [facility] ([facility]) [address] [place] [address] RBC (Bld) [#/Vol] 4.52 10*6/uL Normal 3.80-5.00 [facility] Comment on above: Performed By: #### L [id number] #### [facility] ([facility]) [address] [place] [address] WBC (Bld) [#/Vol] 6.39 10*3/uL Normal 4.00-10.60 [facility] Comment on above: Performed By: #### L [id number] #### [facility] ([facility]) [address] [place] [address] ENTERIC BACTERIA, LIMITED PA RASITE DNA PANELon 05-31-2023 CAMPYLOBACTER SPECIES Negative Normal Negative [facility] Comment [...] the amplified DNA. Performed By: #### L [id number] ####[facility] (BEAKER)[address] [facility] [place] [address] CRYPTOSPORIDIUM (HOMINIS AND PARVUM) Negative Normal Negative [facility] Comment on above: Order Comment: Testi [...] the amplified DNA. Performed By: #### L [id number] ####[facility] (BEAKER)[address] [place] [address] ENTAMOEBA HISTOLYTICA Negative Normal Negative [facility] Comment on above: Order Comment: Testi ng [...] the amplified DNA. Performed By: #### L [id number] ####[facility] (BEAKER)[address] [place] [address] ENTEROTOXIGENIC E. COLI (ETEC) LT/ST Negative Normal Negative [facility] Comment on above: Order Comment: Testi [...] the amplified DNA. Performed By: #### L [id number] ####[facility] (BEAKER)[address] [facility] [place] [address] GIARDIA LAMBLIA Negative Normal Negative [facility] Comment on above: Order Comment: Testi ng [...] the amplified DNA. Performed By: #### L [id number] ####[facility] (BEAKER)[address] [place] [address] PLESIOMONAS SHIGELLOIDES Negative Normal Negative [facility] Comment on above: Order Comment: Testi [...] the amplified DNA. Performed By: #### L [id number] ####[facility] (BEAKER)[address] [place] [address] SALMONELLA SPECIES Negative Normal Negative [facility] Comment on above: Order Comment: Testi [...] the amplified DNA. Performed By: #### L [id number] ####[facility] (BEAKER)[address] [place] [address] SHIGA-LIKE TOXIN-PRODUCING E. COLI (STEC) STX1/STX2 Negative Normal Negative [facility] Comment on above: Order Comment: Testi [...] the amplified DNA. Performed By: #### L [id number] ####[facility] (BEAKER)[address] [place] [address] SHIGELLA SPECIES Negative Normal Negative [facility] Comment on above: Order Comment: Testi [...] the amplified DNA. Performed By: #### L [id number] ####[facility] ([facility])[address] [place] [address] VIBRIO SPECIES Negative Normal Negative [facility] Comment on above: Order Comment: Testi [...] the amplified DNA. Performed By: #### L [id number] ####[facility] ([facility])[address] [place] [address] YERSINIA ENTEROCOLITICA Negative Normal Negative [facility] Comment on above: Order Comment: Testi [...] the amplified DNA. Performed By: #### L [id number] ####[facility] ([facility])[address] [place] [address] IGAon 05-31-2023 Magnesium [Mass/Vol] 265 mg/dL Normal 60-413 [facility] Comment on above: Performed By: #### L [id number] #### [facility] ([facility]) [address] [place] [address] Labon 05-31-2023 Lab [id number] Darrian Leal en 1970 F Date Provider Department Center 05/31/2023 2244-[facility] MP LAB RESOURCE MP DRAW Medical Pavi No family history on file Normal [facility] Office Visiton 05-31-2023 Follow-up visit [id number] Darrian Leal en 1970 F Date Provider Department [facility] 05/31/2023 137-[facility] MP GI Medical Pavi No family history on file Level of Service:25864 MD OFFICE/OUTPATIENT NEW MODERATE MDM 45-59 MINUTES Reason for Visit and Comments: Nausea [70] GERD [871852] Abdominal Pain [085194] New Patient [632] Normal [facility] PANCREATIC ELASTASE, FECALon 05-31-2023 PANCREATIC ELASTASE, FECAL 700 ug/g Normal >=100 [facility] Comment on above: Result Comment: REFE RENCE INTERVAL: Pancreatic Elastase Fecal by Immunoassay Less than 100 ug/g............Severe insufficiency 100 - 199 ug/g................Moderate insufficiency 200 ug/g or greater...........Normal INTERPRETIVE INFORMATION: Pancreatic Elastase Fecal by Immunoassay Reference intervals do not apply for infants less than one month old. Performed by [facility], [address] [place], [place] [id number] [email or web address] Moisés Moreau MD, PHD, Lab. Director Performed By: #### L [id number] #### [facility] ([facility]) [address] [id number] SEDIMENTATION RATEon 023 SEDIMENTATION RATE, ERYTHROCYTE 13 mm/hr Normal <=20 [facility] Comment on above: Performed By: #### L [id number] #### [facility] (BEAKER) [address] [place] [address] TISSUE TRANSGLUTAMINASE, IGA on 05-31-2023 TISSUE TRANSGLUTAMINASE, IGA <2 Normal 0-3 [facility] Comment on above: Result Comment: INTE [...] positive predictive value for disease. Performed By: [facility] [address] [place] [address] Stone Decorator: Moisés Moreau MD, PhD Performed By: #### L [id number] ####[facility] ([facility])[address] [place] [id number] Refillon 05-27-2023 Refill [id number] Denver Lealist en 1970 F Date Provider Department Center 05/27/2023 167GIANA JARQUIN [facility] PSYCH Gerardo Heal No family history on file Reason for Visit and Comments: Med Refill [[id number]] Normal [facility] Telemedici neon 05-22-2023 Behavior[facility] Health Telemedicine [id number] Elvis,Mary 1970 Date Provider Department [facility] 05/22/202334745-BDCYRADHA [facility]ARK [facility] Gerardo Heal No family history on file Reason for Visit and Comments: Anxiety [9] Pain [136] Normal [facility] Orders Onlyon 05-18-2023 Orders Only [id number] [place] Lealist en 1970 Date Provider Department [facility] 05/18/2023 167GIANA JARQUIN [facility] PS[facility]CH Gerardo Heal No family history on file [facility] Behavioral Health Telemedici neon 05-17-2023 [facility] Telemedicine [id number] Elvis,Mary 1970 Date Provider Department [facility] 05/17/2023 167GIANA JARQUIN [facility] PS[facility]CH Gerardo Heal No family history on file Level of Service:74036 MD OFFICE/OUTPATIENT ESTABLISHED MOD MDM 30-39 MIN Reason for Visit and Comments: Telehealth Audio/video Visit [871] Normal [facility] Telemedicine [id number] Elvis,Mary 1970 F Date Provider Department [facility] 05/17/202370717-ZPDLRADHA STARK [facility] Gerardo Heal No family history on file Reason for Visit and Comments: Anxiety [9] MDD (Major Depressive Disorder) [401] Normal [facility] Telemedici neon 04-17-2023 Behavior[facility] Telemedicine [id number] Elvis,Mary 1970 F Date Provider Department Center 04/17/2023 [place] [facility] Gerardo Pool No family history on file Reason for Visit and Comments: Therapy [849] Telehealth Audio/video Visit [871] - Via [employer] [facility] Documentationon 04-14-2023 Documentation [id number] Darrian Leal jonathan 1970 F Date Provider Department [facility] 04/14/2023 C[facility]ONEYCARMEN [facility] Gerardo Pool No family history on file Reason for Visit and Comments: Transfer summary [Other] - Transferring therapy services [facility] Behavioral Health Telemedici neon 04-10-2023 Behavioral Health Telemedicine [id number] Darrian Lealen 1970 F Date Provider Department [facility] 04/10/2023 C[facility]YCARMEN [facility] Gerardo Pool No family history on file Reason for Visit and Comments: Therapy [849] [facility] CBC AUTO DIFFon 04-05-2023 BASO # 0.0 103/ul Normal 0.0-0.1 [facility] Comment on above: Performed By: #### L ACT #### [facility] [address] [place] [address] Dr. Mirian Velasco Basophils/100 WBC (Bld) 0.8 % Normal 0.2-2.0 [facility] Comment on above: Performed By: #### L ACT #### [facility] [address] [place] [address] Dr. Mirian Velasco EO # 0.1 103/ul Normal 0.0-0.7 [facility] Comment on above: Performed By: #### L ACT #### [facility] [address] [place] [address] [address] Mirian Velasco Eosinophils/100 WBC (Bld) 1.1 % Normal 0.9-7.0 [facility] Comment on above: Performed By: #### L ACT #### [facility] [address] [place] [address] Dr. Mirian Velasco Erythrocyte distribution width (RBC) [Ratio] 13.1 % Normal 11.0-15.0 [facility] Comment on above: Performed By: #### L ACT #### [facility] [address] [place] [address] Dr. Mirian Velasco Hematocrit (Bld) [Volume fraction] 37.6 % Normal 36.0-48.0 [facility] Comment on above: Performed By: #### L ACT #### [facility] [address] [place] [address] Dr. Mirian Velasco Hemoglobin (Bld) [Mass/Vol] 12.4 g/dL Normal 12.0-16.0 [facility] Comment on above: Performed By: #### L ACT #### [facility] [address] [place] [address] Dr. Mirian Velasco IG # 0.01 10e3/ul Normal 0.00-0.03 [facility] Comment on above: Performed By: #### L ACT #### [facility] [address] [place] [address] Dr. Mirian Velasco IG % 0.2 % Normal 0.0-0.5 [facility] Comment on above: Performed By: #### L ACT #### [facility] [address] [place] [address] Dr. Mirian Velasco LYMPH # 2.5 103/ul Normal 1.2-3.8 [facility] Comment on above: Performed By: #### L ACT #### [facility] [address] [place] [address] Dr. Mirian Velasco Lymphocytes/100 WBC (Bld) 46.2 % Normal 20.5-60.0 [facility] Comment on above: Performed By: #### L ACT #### [facility] [address] [place] [address] Dr. Mirian Velasco MANUAL DIFF REQ NO Normal [facility] Comment on above: Performed By: #### L ACT #### [facility] [address] [place] [address] Dr. Mirian Velasco MCH (RBC) [Entitic mass] 27.1 pg Normal 26.7-34.0 [facility] Comment on above: Performed By: #### L ACT #### [facility] [address] [place], [place] [id number] Dr. Mirian Velasco MCHC (RBC) [Mass/Vol] 33.0 g/dL Normal 29.9-35.2 [facility] Comment on above: Performed By: #### L ACT #### [facility] [address] [place] [address] Dr. Mirian Velasco MCV (RBC) [Entitic vol] 82.3 fL Normal 81.0-99.0 [facility] Comment on above: Performed By: #### L ACT #### [facility] [address] [place] [address] Dr. Mirian Velasco MONO # 0.4 103/ul Normal 0.3-0.8 [facility] Comment on above: Performed By: #### L ACT #### [facility] [address] [place] [address] Dr. Mirian Velasco Monocytes/100 WBC (Bld) 7.9 % Normal 1.7-12.0 [facility] Comment on above: Performed By: #### L ACT #### [facility] [address] [place] [address] Dr. Mirian Velasco NEUT # 2.3 103/ul Normal 1.4-6.5 [facility] Comment on above: Performed By: #### L ACT #### [facility] [address] [place] [address] Dr. Mirian Velasco Neutrophils/100 WBC (Bld) 43.8 % Normal 43.0-75.0 [facility] Comment on above: Performed By: #### L ACT #### [facility] [address] [place] [address] Dr. Mirian Velasco Platelet mean volume (Bld) [Entitic vol] 9.2 fL Critically low 9.5-13.5 [facility] Comment on above: Performed By: #### L ACT #### [facility] [address] [place] [address] Dr. Mirian Velasco PLT 318 103/ul Normal 150-450 [facility] Comment on above: Performed By: #### L ACT #### [facility] [address] [place] [address] Dr. Mirian Velasco RBC 4.57 106/ul Normal 4.20-5.40 [facility] Comment on above: Performed By: #### L ACT #### [facility] [address] [address] [address] Mirian Velasco WBC 5.3 103/ul Normal 4.0-11.0 [facility] Comment on above: Performed By: #### L ACT #### [facility] [address] [address] [address] Mirian Velasco PROF CHEM 8 (BAS METB)on Anion gap [Moles/Vol] 19.0 mmol/L Normal [facility] Comment on above: Performed By: #### H FAUSTO, BMP ####[facility] [address] [place] [address]DrReno Velasco Calcium [Mass/Vol] 9.6 mg/dL Normal 8.5-10.1 [facility] Comment on above: Performed By: #### Sukumar LAMBERT, BMP ####[facility] [address] [place] [address]DrReno Velasco Chloride [Moles/Vol] 103 mmol/L Normal 98-107 [facility] Comment on above: Performed By: #### Sukumar LAMBERT, BMP ####[facility] [address] [place] [address]DrReno Velasco CO2 [Moles/Vol] 23.1 mmol/L Normal 21.0-32.0 [facility] Comment on above: Performed By: #### Sukumar LAMBERT, BMP ####[facility] [address] [place] [address]DrReno Velasco Creatinine [Mass/Vol] 0.84 mg/dL Normal 0.55-1.02 [facility] Comment on above: Performed By: #### Sukumar LAMBERT, BMP ####[facility] [address] [place] [address]DrReno Velasco EGFR-AF STATELESS >60 Normal >=60 [facility] Comment on above: Performed By: #### Sukumar LAMBERT, BMP ####[facility] [address] [place] [id number]. Mirian Velasco EGFR-NON AF STATELESS >60 Normal >=60 [facility] Comment on above: Performed By: #### H FAUSTO, BMP ####[facility] [address] [place] [address]Dr. Mirian Velasco Glucose [Mass/Vol] 129 mg/dL Critically high 74-106 [facility] Comment on above: Performed By: #### H FAUSTO, BMP ####[facility] [address] [place] [address]Dr. Mirian Velasco Potassium [Moles/Vol] 3.1 mmol/L Critically low 3.5-5.1 [facility] Comment on above: Performed By: #### H FAUSTO, BMP ####[facility] [address] [place] [address]Dr. Mirian Velasco Sodium [Moles/Vol] 142 mmol/L Normal 136-145 [facility] Comment on above: Performed By: #### H FAUSTO, BMP ####[facility] [address] [place] [address]Dr. Mirian Velasco Urea nitrogen [Mass/Vol] 12.0 mg/dL Normal 7.0-18.0 [facility] Comment on above: Performed By: #### H FAUSTO, BMP ####[facility] [address] [place] [address]Dr. Mirian Velasco Urea nitrogen/Creatinine [Mass ratio] 14.3 mg/mg Normal [facility] Comment on above: Performed By: #### H FAUSTO, BMP ####[facility] [address] [place] [address]Dr. Mirian Velacso TROPONIN, HIGH SENSITIVITYon 04-05-2023 HSTROP 5.6 pg/mL Normal 4.0-51.3 [facility] Comment on above: Result Comment: CUT- OFF POINTS HAVE BEEN ESTABLISHED BASED ON THE FOURTH UNIVERSAL DEFINITIONS OF MYOCARDIAL INFARCTION. THE UPPER REFERENCE LIMIT (URL) OF TROPONIN, DEFINED THE 99TH PERCENTILE OF cTnI DISTRIBUTION IN A REFERENCE POPULATION, HAS BEEN CONFIRMED THE DECISION THRESHOLD FOR NM DIAGNOSIS. Performed By: #### H STROPN, BMP ####[facility] [address] [place], [place] [address]KaReno Velasco Refillon 03-21-2023 Refill [id number] Darrian Leal en 1970 F Date Provider Department Center 03/21/2023 167NARENDRAS GIANA [facility] PS[facility]CH Gerardo Heal No family history on file Reason for Visit and Comments: Med Refill [[id number]] Normal [facility] Telemedici neon 03-20-2023 [facility] Telemedicine [id number] Darrian Lealen 1970 F Date Provider Department Center 03/20/2023 3941-CARMEN DORSEY [facility] BH Gerardo Heal No family history on file Reason for Visit and Comments: Therapy [849] Normal [facility] FAT, FECAL QUALon 03-16-2023 FAT, FECAL - NEUTRAL Normal Normal Normal [facility] Comment on above: Order Comment: Speci men Type: STOOL SPECIMENOrdering Facility: [facility] Address: [address] [place] [address] Performed By: #### F FATQL ####[facility] [id number] [place] [address] FAT, FECAL - SPLIT Normal Normal Normal [facility] Comment on above: Order Comment: Speci men Type: STOOL SPECIMENOrdering Facility: [facility] Address: [address] [place] [address] Result Comment: INTE RPRETIVE INFORMATION: Fecal Fat Qualitative Neutral fats include the monoglycerides, diglycerides, and triglycerides while split fats are the free fatty acids that are liberated from them. Impaired synthesis or secretion of pancreatic enzymes or bile may cause an increase in neutral fats while an increase in split fats suggests impaired absorption of nutrients. Performed By: [facility] [address] [place] [address] Stone Decorator: Moisés Moreau MD, PhD Performed By: #### F FATQL ####[facility] [id number] [place] [address] Behavioral Health Telemedici neon 03-06-2023 [facility] [id number] Mary Leal 1970 F Date Provider Department Center 03/06/2023 Yohana-KAILA [place] [facility] No family history on file Reason for Visit and Comments: Therapy [849] Normal [facility] CBC AUTO DIFFon 03-06-2023 BASO # 0.1 103/ul Normal 0.0-0.1 [facility] Comment on above: Performed By: #### L ACT #### [facility] [address] [address] [address] Mirian Velasco Basophils/100 WBC (Bld) 0.8 % Normal 0.2-2.0 [facility] Comment on above: Performed By: #### L ACT #### [facility] [address] [place] [address] Dr. Mirian Velasco EO # 0.1 103/ul Normal 0.0-0.7 [facility] Comment on above: Performed By: #### L ACT #### [facility] [address] [address] [address] Mirian Velasco Eosinophils/100 WBC (Bld) 1.4 % Normal 0.9-7.0 [facility] Comment on above: Performed By: #### L ACT #### [facility] [address] [place] [address] Dr. Mirian Velasco Erythrocyte distribution width (RBC) [Ratio] 13.1 % Normal 11.0-15.0 [facility] Comment on above: Performed By: #### L ACT #### [facility] [address] [address] [address] Mirian Velasco Hematocrit (Bld) [Volume fraction] 37.9 % Normal 36.0-48.0 [facility] Comment on above: Performed By: #### L ACT #### [facility] [address] [address] [address] Mirian Velasco Hemoglobin (Bld) [Mass/Vol] 12.7 g/dL Normal 12.0-16.0 [facility] Comment on above: Performed By: #### L ACT #### [facility] [address] [place] [address] Dr. Mirian Velasco IG # 0.01 10e3/ul Normal 0.00-0.03 [facility] Comment on above: Performed By: #### L ACT #### [facility] [address] [place] [address] Dr. Mirian Velasco IG % 0.2 % Normal 0.0-0.5 [facility] Comment on above: Performed By: #### L ACT #### [facility] [address] [place] [address] Dr. Mirian Velasco LYMPH # 1.8 103/ul Normal 1.2-3.8 [facility] Comment on above: Performed By: #### L ACT #### [facility] [address] [place] [address] Dr. Mirian Velasco Lymphocytes/100 WBC (Bld) 27.2 % Normal 20.5-60.0 [facility] Comment on above: Performed By: #### L ACT #### [facility] [address] [place] [address] Dr. Mirian Velasco MANUAL DIFF REQ NO Normal [facility] Comment on above: Performed By: #### L ACT #### [facility] [address] [place] [address] Dr. Mirian Velasco MCH (RBC) [Entitic mass] 27.5 pg Normal 26.7-34.0 [facility] Comment on above: Performed By: #### L ACT #### [facility] [address] [place] [address] Dr. Mirian Velasco MCHC (RBC) [Mass/Vol] 33.5 g/dL Normal 29.9-35.2 [facility] Comment on above: Performed By: #### L ACT #### [facility] [address] [place] [address] Dr. Mirian Velasco MCV (RBC) [Entitic vol] 82.0 fL Normal 81.0-99.0 [facility] Comment on above: Performed By: #### L ACT #### [facility] [address] [place] [address] Dr. Mirian Velasco MONO # 0.4 103/ul Normal 0.3-0.8 [facility] Comment on above: Performed By: #### L ACT #### [facility] [address] [place] [address] Dr. Mirian Velasco Monocytes/100 WBC (Bld) 5.5 % Normal 1.7-12.0 [facility] Comment on above: Performed By: #### L ACT #### [facility] [address] [place] [address] Dr. Mirian Velasco NEUT # 4.3 103/ul Normal 1.4-6.5 [facility] Comment on above: Performed By: #### L ACT #### [facility] [address] [place] [address] Dr. Mirian Velasco Neutrophils/100 WBC (Bld) 64.9 % Normal 43.0-75.0 [facility] Comment on above: Performed By: #### L ACT #### [facility] [address] [place] [address] Dr. Mirian Velasco Platelet mean volume (Bld) [Entitic vol] 9.4 fL Critically low 9.5-13.5 [facility] Comment on above: Performed By: #### L ACT #### [facility] [address] [place] [address] Dr. Mirian Velasco PLT 317 103/ul Normal 150-450 [facility] Comment on above: Performed By: #### L ACT #### [facility] [address] [place] [address] Dr. Mirian Velasco RBC 4.62 106/ul Normal 4.20-5.40 [facility] Comment on above: Performed By: #### L ACT #### [facility] [address] [place] [address] Dr. Mirian Velasco WBC 6.6 103/ul Normal 4.0-11.0 [facility] Comment on above: Performed By: #### L ACT #### [facility] [address] [place] [address] Dr. Mirian Velasco CULTURE BLOODon 03-06-2023 Microscopic examination of blood, culture Culture Observations: NO GROWTH AT 5 DAYS. Normal [facility] Comment on above: Performed By: #### B LDCX2 ####[facility] [address] [address]Dr. Mirian Velasco Microscopic examination of blood, culture Culture Observations: NO GROWTH AT 5 DAYS. Normal [facility] Comment on above: Performed By: #### B LDCX1 #### [facility] [address] [place] [address] Dr. Mirian Velasco LACTATE/LACTIC ACIDon 2022 Lactate [Moles/Vol] 2.2 mmol/L Critically high 0.4-2.0 [facility] Comment on above: Performed By: #### L ACT #### [facility] [address] [place] [address] Dr. Mirian Velasco LIPASEon 03-06-2023 Lipase [Catalytic activity/Vol] 53.0 U/L Critically low 73.0-393.0 [facility] Comment on above: Performed By: #### L ACT #### [facility] [address] [place] [address] Dr. Mirian Velasco PROF 14(COMP METB)on 023 Albumin [Mass/Vol] 3.4 g/dL Normal 3.4-5.0 [facility] Comment on above: Performed By: #### L ACT #### [facility] [address] [place] [address] Dr. Mirian Velasco Albumin/Globulin [Mass ratio] 1.0 {ratio} Normal [facility] Comment on above: Performed By: #### L ACT #### [facility] [address] [place] [address] Dr. Mirian Velasco ALP [Catalytic activity/Vol] 123 U/L Critically high 46-116 [facility] Comment on above: Performed By: #### L ACT #### [facility] [address] [place] [address] Dr. Mirian Velasco ALT [Catalytic activity/Vol] 33 U/L Normal 14-59 [facility] Comment on above: Performed By: #### L ACT #### [facility] [address] [address] [address] Mirian Velasco Anion gap [Moles/Vol] 13.1 mmol/L Normal [facility] Comment on above: Performed By: #### L ACT #### [facility] [address] [address] [address] Mirian Velasco AST [Catalytic activity/Vol] 31 U/L Normal 15-37 [facility] Comment on above: Performed By: #### L ACT #### [facility] [address] [address] [address] Mirian Velasco Bilirubin [Mass/Vol] 0.3 mg/dL Normal 0.2-1.0 [facility] Comment on above: Performed By: #### L ACT #### [facility] [address] [address] [address] Mirian Velasco Calcium [Mass/Vol] 8.9 mg/dL Normal 8.5-10.1 [facility] Comment on above: Performed By: #### L ACT #### [facility] [address] [place] [address] Dr. Mirian Velasco Chloride [Moles/Vol] 107 mmol/L Normal 98-107 [facility] Comment on above: Performed By: #### L ACT #### [facility] [address] [address] [address] Mirian Velasco CO2 [Moles/Vol] 25.6 mmol/L Normal 21.0-32.0 [facility] Comment on above: Performed By: #### L ACT #### [facility] [address] [address] [address] Mirian Velasco Creatinine [Mass/Vol] 0.70 mg/dL Normal 0.55-1.02 [facility] Comment on above: Performed By: #### L ACT #### [facility] [address] [address] [address] Mirian Velasco EGFR-AF STATELESS >60 Normal >=60 [facility] Comment on above: Performed By: #### L ACT #### [facility] [address] [address] [address] Mirian Velasco EGFR-NON AF STATELESS >60 Normal >=60 [facility] Comment on above: Performed By: #### L ACT #### [facility] [address] [address] [address] Mirian Velasco Globulin (S) [Mass/Vol] 3.4 g/dL Normal [facility] Comment on above: Performed By: #### L ACT #### [facility] [address] [address] [address] Mirian Velasco Glucose [Mass/Vol] 125 mg/dL Critically high 74-106 [facility] Comment on above: Performed By: #### L ACT #### [facility] [address] [address] [address] Mirian Velasco Potassium [Moles/Vol] 3.7 mmol/L Normal 3.5-5.1 [facility] Comment on above: Performed By: #### L ACT #### [facility] [address] [address] [address] Mirian Velasco Protein [Mass/Vol] 6.8 g/dL Normal 6.4-8.2 [facility] Comment on above: Performed By: #### L ACT #### [facility] [address] [address] [address] Mirian Velasco Sodium [Moles/Vol] 142 mmol/L Normal 136-145 [facility] Comment on above: Performed By: #### L ACT #### [facility] [address] [address] [address] Mirian Velasco Urea nitrogen [Mass/Vol] 16.0 mg/dL Normal 7.0-18.0 [facility] Comment on above: Performed By: #### L ACT #### [facility] [address] [address] [address] Mirian Velasco Urea nitrogen/Creatinine [Mass ratio] 22.9 mg/mg Normal [facility] Comment on above: Performed By: #### L ACT #### [facility] [address] [address] [address] Mirian Velasco PROTIMEon 03-06-2023 INR Coag (PPP) [Relative time] {INR} Normal [facility] Comment on above: Performed By: #### P T #### [facility] [address] [address] [address] Mirian Velasco INR GUIDELINES SEE BELOW Normal [facility] Comment on above: Result Comment: SAMEER RED INR: 2.0 - 3.0 CONDITIONS NOT LISTED BELOW 2.5 - 3.5 FOR PROSTHETIC HEART VALVE REPLACEMENT 2.5 - 3.5 RECURRENT THROMBOSIS Performed By: #### P T #### [facility] [address] [address] [address] Mirian Velasco PT Coag (PPP) [Time] 9.8 s Normal 9.0-11.6 [facility] Comment on above: Performed By: #### P T #### [facility] [address] [address] [address] Mirian Velasco TROPONIN, HIGH SENSITIVITYon 03-06-2023 HSTROP 4.4 pg/mL Normal 4.0-51.3 [facility] Comment on above: Result Comment: CUT- OFF POINTS HAVE BEEN ESTABLISHED BASED ON THE FOURTH UNIVERSAL DEFINITIONS OF MYOCARDIAL INFARCTION. THE UPPER REFERENCE LIMIT (URL) OF TROPONIN, DEFINED THE 99TH PERCENTILE OF cTnI DISTRIBUTION IN A REFERENCE POPULATION, HAS BEEN CONFIRMED THE DECISION THRESHOLD FOR NM DIAGNOSIS. Performed By: #### L ACT #### [facility] [address] [place] [address] Dr. Mirian Velasco Bacteria identified Aer cx N om (Unsp spec)Ordered By: Niecy Duron on 03-02-2023 Superficial Wound Culture Methicillin Resis Staph Aureus [facility] Superficial Wound Cultureon 03-02-2023 Superficial [...] RESISTANT TO ALL B-LACTAM DRUGS. PERFORMED BY: [place] [address] PATHOLOGIST MINE SHIFTER LEVAR CASE M.D. [facility] Comment on above: Performed By: #### C USUP #### [address] Clinical Supporton 3 Clinical Support [id number] Darrian Leal 1970 Date Provider Department [facility] 02/27/2023 [facility] Gerardo [facility] No family history on file Reason for Visit and Comments: Therapy [849] [facility] 36on 02-20-2023 36 I just sent the scri pt over and signed her note. [facility]al Health Telemedici neon 02-20-2023 [facility] Telemedicine [id number] Mary Leal 1970 Provider Department [facility] 02/20/2023 [facility] Gerardo [facility] No family history on file Reason for Visit and Comments: Therapy [849] [facility] CT LSPINE WO CONon 3 CT [...] by: NANCY BELLE Date: 2023-02-19 06:42 Normal [facility] 36on 02-17-2023 36 Glass [employer]ic spoke with rigoberto montemayor in regards to lunesta, patient reports Giana was increasing the lunesta to 3mg, fha underwriter read last note plan reports 2mg lunesta. Glass Mechanic will attempt to contact Giana Morales. Glass Mechanic is covering while Giana is out of the clinic. Normal [facility] 36 Patient needs Lunest a sent to [facility] in [place]. Had an appt yesterday with you, and pharmacy does not have. Normal [facility] Telephoneon 02-17-2023 Telephone [id number] ElvisDarrian arriaza en 1970 F Date Provider Department Center 02/17/2023 GIANA JAMES [facility] PSYCH Gerardo Heal No family history on file Reason for Visit and Comments: Medication Question [827] - Pt is upset that her Lunesta has not been increased as discussed. [facility] Telephone [id number] ElvisDarrian arriaza en 1970 Date Provider Department Center 02/17/2023 PONCE MCKEON [facility] PS[facility]CH Gerardo Heal No family history on file [facility] Behavioral Health Telemedici neon 02-16-2023 Behavior[facility] Telemedicine [id number] Mary Leal 1970 Provider Department Center 02/16/2023 GIANA JAMES [facility] PSYCH Gerardo Heal No family history on file Level of Service:35307 MD OFFICE/OUTPATIENT ESTABLISHED MOD MDM 30-39 MIN Reason for Visit and Comments: Telehealth Audio/video Visit [871] - [email or web address] [facility] Behavioral Health Telemedici neon 02-13-2023 Behavior[facility] Telemedicine [id number] Mary Leal 1970 Date Provider Department Center 02/13/2023 [facility] BH Gerardo Heal No family history on file Reason for Visit and Comments: Therapy [849] - Normal [facility] XR ESOPHAGRAMon 12-26-2022 [facility] NURSING PROGon 12-08-2022 NURSING PROG HNO ID: [id number] Author: Lisa Contreras RN Service: Nursing Author Type: Registered Nurse Type: Nursing Progress Note Filed: 12/08/2022 11:28 AM Note Text: [facility] ENDOSCOPY POST PROCEDURE FOLLOW UP CALL [phone] (home) Date Phone Call Made: 12/08/2022 Attempt: [...] experience more pleasant? No Lisa Contreras RN [facility] ANES POSTPROC EVALon 023 ANES POSTPROC EVAL HNO ID: [id number] Author: Andres Sheets DO Service: Anesthesiology Author Type: Anesthesiologist Type: Anesthesia Postprocedure Evaluation Filed: 12/07/2022 12:44 PM Note Text: POST ANESTHESIA EVALUATION NOTE : 1970 Procedure Summary Date: 12/07/22 Room / Location: [facility] Anesthesia Start: 1034 Anesthesia Stop: 1055 [...] December 07, 2022 TIME: 12:44 PM CSN: [id number] [facility] ANES PRE-OPon 12-07-2022 ANES PRE-OP HNO ID: [id number] Author: Andres Sheets DO Service: Anesthesiology Author Type: Anesthesiologist Type: Anesthesia Preprocedure Evaluation Filed: 12/07/2022 9:42 AM Note Text: ANESTHESIOLOGY DAY OF SURGERY NOTE : 1970 Procedure Information Date/Time: 12/07/22 1030 Scheduled providers: Winston Hannah DO Procedures: EGD - THERAPEUTIC, EUS, OR TUBE INTERVENTIONS PH MONTIEL INSERT OFF MEDS Location: [facility] Estimated body mass index is 24.55 [...] the AM and 4 mg PM - eusmndydtzw-rpvhczqak-lxq anter (TRELEGY ELLIPTA) 100-62.5-25 mcg Inhale 1 [...] December 07, 2022 TIME: 9:40 AM CSN: [id number] [facility] HISTORY PHYSICALon HISTORY PHYSICAL HNO ID: [id number] Author: Soraida Mathis PA-C Service: Gastroenterology Author Type: Physician Blocking Machine Operator Type: HANDP Filed: 12/07/2022 9:48 AM [...] PAIN, N/V/D Medication reconciliation list reviewed in [facility]. Past medical history, past surgical history, social history and family history reviewed and updated in [facility]. ALLERGIES Allergies: Risperidone Intolerance Comment:Breast discharge SEE [facility] FOR VITALS BP 109/74 Pulse [...] 12/07/2022 TIME: 9:41 AM Normal [facility] Upper GI endoscopyon 023 Upper GI endoscopy [facility] l Gastrointestinal Endoscopy Patient Name: Mayr Leal Procedure Date: 12/07/2022 10:20 AM Date [...] by the physician, the nurse and the paper latcher in the pre-procedure area in the endoscopy [...] previously scheduled. Procedure Code(s): --- Professional --- 50937, Esophagogastroduodenoscop y, flexible, transoral; with dilation of gastric/duodenal stricture(s) (eg, balloon, bougie) Diagnosis Code(s): --- Professional --- K21.00, Gastro-esophageal reflux disease with esophagitis, without bleeding K31.84, Gastroparesis CPT copyright 2020 [employer]. All rights reserved. The codes documented in this report are preliminary and upon monitoring analyst review may be revised to meet current compliance requirements. Attending Participation: I personally performed the entire procedure. Scope In: 10:39:12 AM Scope Out: 10:46:13 AM MD Winston Diaz MD 12/07/2022 10 (more content not included)... [facility] ANES POSTPROC EVALon 023 ANES POSTPROC EVAL HNO ID: [id number] Author: Annabel Burton MD Service: Anesthesiology Author Type: Physician Type: Anesthesia Postprocedure Evaluation Filed: 12/05/2022 2:01 PM Note Text: POST ANESTHESIA EVALUATION NOTE : 1970 Procedure Summary Date: 12/05/22 Room / Location: [facility] Anesthesia Start: 900 Anesthesia Stop: 917 [...] December 05, 2022 TIME: 2:00 PM CSN: [id number] [facility] ANES PRE-OPon 12-05-2022 ANES PRE-OP HNO ID: [id number] Author: Annabel Burton MD Service: Anesthesiology Author Type: Physician Type: Anesthesia Preprocedure Evaluation Filed: 12/05/2022 8:28 AM Note Text: ANESTHESIOLOGY DAY OF SURGERY NOTE : 1970 Procedure Information Date/Time: 12/05/22 0900 Scheduled providers: Isra Masters DO Procedure: SIGMOIDOSCOPY Location: [facility] Estimated body mass index is 24.55 [...] the AM and 4 mg PM - hvmtvchgaso-mcsyijpkn-auk anter (TRELEGY ELLIPTA) 100-62.5-25 mcg Inhale 1 [...] December 05, 2022 TIME: 8:26 AM CSN: [id number] [facility] Flexible Sigmoidoscopyon Flexible sigmoidoscopy [facility] Gastrointestinal Endoscopy Patient Name: Mary Leal Procedure Date: 12/05/2022 8:55 AM Date of : 1970 Admit Type: Outpatient Age: 52 Room: [address] [address] Gender: Female Note Status: Finalized Attending MD: [...] present medications. Procedure Code(s): --- Professional --- 39847, 52, Sigmoidoscopy, flexible; diagnostic, including collection of specimen(s) by brushing or washing, when performed (separate procedure) Diagnosis Code(s): --- Professional --- K59.00, Constipation, unspecified CPT copyright 2020 [employer]. All rights reserved. The codes documented in this report are preliminary and upon monitoring analyst review may be revised to meet current compliance requirements. Attending Participation: I personally performed the entire procedure. Scope In: 9:07:04 AM Scope Out: 9:09:45 AM DO Isra Chen DO 12/05/2022 9:13:05 AM This report has been signed electronically by Isra Masters DO Number of Addenda: 0 Note Initiated On: 12/05/2022 8:55 AM Estimated Blood Loss: Estimated blood loss: none. [facility] HISTORY PHYSICALon HISTORY PHYSICAL HNO ID: [id number] Author: Lashanda Dorado PA-C Service: Gastroenterology Author Type: Physician Blocking Machine Operator Type: HANDP Filed: 12/05/2022 8:43 AM [...] PAIN, N/V/D Medication reconciliation list reviewed in [facility]. Past medical history, past surgical history, social history and family history reviewed and updated in [facility]. ALLERGIES Allergies: Risperidone Intolerance Comment:Breast [...] Mary Leal DATE: 12/05/2022 TIME: 8:42 AM [facility] NURSING PROGon 12-05-2022 NURSING PROG HNO ID: [id number] Author: Lisa Contreras, MAKI Service: ? Author Type: Registered Nurse Type: Nursing Progress Note Filed: 12/05/2022 1:07 PM Note Text: [facility] ENDOSCOPY PRE PROCEDURE CALL Akiko. I'm calling from [facility] endoscopy to provide you with the information for your surgery/procedure tomorrow. 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 yes When anesthesia or sedation is being given: Patient instructed you must have an adult local truck driver because you will not be able to work or drive for the rest of the day after your test.yes Can you please confirm the name and relationship of your local truck driver. tbd What is the best number for your local truck driver to be reached at tomorrow for updates? tbd Your local truck driver is allowed to wait here with [...] Do not wear makeup, lotion, or finger british virgin islander. yes Patient instructed: Please bring a list [...] given Any barriers to Patient learning (confusion? Consulting Manager needed?): Patient/Patient Accounting/Finance Tutor responded appropriately on phone. If patient needs to reschedule please call: [phone] [facility] phone number: [phone] Type of instruction given: Verbal by telephone contact. Normal [facility] NURSING PROGon 12-02-2022 NURSING PROG HNO ID: [id number] Author: Isra Harman RN Service: ? Author Type: Registered Nurse Type: Nursing Progress Note Filed: 12/02/2022 10:54 AM Note Text: [facility] ENDOSCOPY PRE PROCEDURE CALL Akiko. I'm calling from [facility] endoscopy to provide you with the information for your surgery/procedure tomorrow. Spoke to: Patient CONFIRM Procedure Planned with patient: Are you familiar with where [facility] is located?yes Address [address] [facility] Patient instructed to enter through the main hospital entrance off [address] at [address] through the revolving doors and check in at the main desk with your local truck driver's license and insurance card. yes When anesthesia or sedation is being given: Patient instructed you must have an adult local truck driver because you will not be able to work or drive for the rest of the day after your test.yes Can you please confirm the name and relationship of your local truck driver. Rich What is the best number for your local truck driver to be reached at tomorrow for updates? 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 yes Patient instructed: Please bring a list [...] given Any barriers to Patient learning (confusion? Consulting Manager needed?): Patient/Patient Accounting/Finance Tutor responded appropriately on phone. If patient needs to reschedule please call: [phone] [facility] phone number: [phone] Type of instruction given: Verbal by telephone contact. Normal [facility] AMYLASEon 10-20-2022 Amylase [Catalytic activity/Vol] 33 U/L Normal 25-115 [facility] Comment on above: Performed By: #### L ACT #### [facility] [address] [address] [address] Mirian Velasco CBC AUTO DIFFon 10-20-2022 BASO # 0.0 103/ul Normal 0.0-0.1 [facility] Comment on above: Performed By: #### P T #### [facility] [address] [address] [address] Mirian Velasco Basophils/100 WBC (Bld) 0.2 % Normal 0.2-2.0 [facility] Comment on above: Performed By: #### P T #### [facility] [address] [address] [address] Mirian Velasco EO # 0.1 103/ul Normal 0.0-0.7 [facility] Comment on above: Performed By: #### P T #### [facility] [address] [address] [address] Mirian Velasco Eosinophils/100 WBC (Bld) 0.6 % Critically low 0.9-7.0 [facility] Comment on above: Performed By: #### P T #### [facility] [address] [address] [address] Mirian Velasco Erythrocyte distribution width (RBC) [Ratio] 13.6 % Normal 11.0-15.0 [facility] Comment on above: Performed By: #### P T #### [facility] [address] [address] [address] Mirian Velasco Hematocrit (Bld) [Volume fraction] 41.0 % Normal 36.0-48.0 [facility] Comment on above: Performed By: #### P T #### [facility] [address] [place] [address] Dr. Mirian Velasco Hemoglobin (Bld) [Mass/Vol] 13.5 g/dL Normal 12.0-16.0 [facility] Comment on above: Performed By: #### P T #### [facility] [address] [address] [address] Mirian Velasco IG # 0.06 10e3/ul Critically high 0.00-0.03 [facility] Comment on above: Performed By: #### P T #### [facility] [address] [address] [address] Mirian Velasco IG % 0.4 % Normal 0.0-0.5 [facility] Comment on above: Performed By: #### P T #### [facility] [address] [address] [address] Mirian Velasco LYMPH # 2.5 103/ul Normal 1.2-3.8 [facility] Comment on above: Performed By: #### P T #### [facility] [address] [place] [address] Dr. Mirian Velasco Lymphocytes/100 WBC (Bld) 17.5 % Critically low 20.5-60.0 [facility] Comment on above: Performed By: #### P T #### [facility] [address] [place] [address] Dr. Mirian Velasco MANUAL DIFF REQ NO Normal [facility] Comment on above: Performed By: #### P T #### [facility] [address] [place] [address] Dr. Mirian Velasco MCH (RBC) [Entitic mass] 28.1 pg Normal 26.7-34.0 [facility] Comment on above: Performed By: #### P T #### [facility] [facility] [address] [place] [address] Dr. Mirian Velasco MCHC (RBC) [Mass/Vol] 32.9 g/dL Normal 29.9-35.2 [facility] Comment on above: Performed By: #### P T #### [facility] [address] [place] [address] Dr. Mirian Velasco MCV (RBC) [Entitic vol] 85.2 fL Normal 81.0-99.0 [facility] Comment on above: Performed By: #### P T #### [facility] [address] [place] [address] Dr. Mirian Velasco MONO # 0.7 103/ul Normal 0.3-0.8 [facility] Comment on above: Performed By: #### P T #### [facility] [address] [place] [address] Dr. Mirian Velasco Monocytes/100 WBC (Bld) 4.5 % Normal 1.7-12.0 [facility] Comment on above: Performed By: #### P T #### [facility] [address] [place] [address] Dr. Mirian Velasco NEUT # 11.0 103/ul Critically high 1.4-6.5 [facility] Comment on above: Performed By: #### P T #### [facility] [address] [place] [address] Dr. Mirian Velasco Neutrophils/100 WBC (Bld) 76.8 % Critically high 43.0-75.0 [facility] Comment on above: Performed By: #### P T #### [facility] [address] [place] [address] Dr. Mirian Velasco Platelet mean volume (Bld) [Entitic vol] 8.7 fL Critically low 9.5-13.5 [facility] Comment on above: Performed By: #### P T #### [facility] [address] [place] [address] Dr. Mirian Velasco PLT 390 103/ul Normal 150-450 [facility] Comment on above: Performed By: #### P T #### [facility] [address] [place] [address] Dr. Mirian Velasco RBC 4.81 106/ul Normal 4.20-5.40 [facility] Comment on above: Performed By: #### P T #### [facility] [address] [place] [address] Dr. Mirian Velasco WBC 14.3 103/ul Critically high 4.0-11.0 [facility] Comment on above: Performed By: #### P T #### [facility] [address] [place], [place] [address] ABD/PELV W CONon [...] SALMA AMEZQUITA Date: 2022-10-20 12:35 Normal [facility] CULTURE BLOODon 10-20-2022 Microscopic examination of blood, culture Culture Observations: NO GROWTH AT 5 DAYS. Normal [facility] Comment on above: Performed By: #### B [id number] ####[facility] [id number] [place], [place] [address]RsDr. Mirian Velasco Microscopic examination of blood, culture Culture Observations: NO GROWTH AT 5 DAYS. Normal [facility] Comment on above: Performed By: #### B LDCX1 #### [facility] [address] [place] [address] Dr. 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 NO POTENTIAL PATHOGENS SEEN. Normal [facility] Comment on above: Performed By: #### U RCX #### [facility] [address] [place] [address] Dr. Mirian Velasco ER URINE PROFILEon 2 Bilirubin Ql (U) Negative Normal NEGATIVE [facility] Comment on above: Performed By: #### P T #### [facility] [address] [place] [address] Dr. Mirian Velasco Clarity (U) CLEAR Normal CLEAR [facility] Comment on above: Performed By: #### P T #### [facility] [address] [place] [address] Dr. Mirian Velasco Color (U) LT. YELLOW Normal YELLOW [facility] Comment on above: Performed By: #### P T #### [facility] [address] [place] [address] Dr. Mirian Velasco ERUAHLudmila A micrscopic examina tion will be performed if indicated. Normal [facility] Comment on above: Performed By: #### P T #### [facility] [address] [place] [address] Dr. Mirian Velasco Glucose Ql (U) Negative Normal NEGATIVE [facility] Comment on above: Performed By: #### P T #### [facility] [address] [place] [address] Dr. Mirian Velasco Hemoglobin Ql (U) Negative Normal NEGATIVE [facility] Comment on above: Performed By: #### P T #### [facility] [address] [place] [address] Dr. Mirian Velasco Ketones Ql (U) Negative Normal NEGATIVE [facility] Comment on above: Performed By: #### P T #### [facility] [address] [place] [address] Dr. Mirian Velasco LEUKOCYTES SMALL Abnormal NEGATIVE [facility] Comment on above: Performed By: #### P T #### [facility] [address] [place] [address] Dr. Mirian Velasco Nitrite Ql (U) Negative Normal NEGATIVE [facility] Comment on above: Performed By: #### P T #### [facility] [address] [place] [address] Dr. Mirian Velasco pH (U) 7.0 [pH] Normal 5-9 [facility] Comment on above: Performed By: #### P T #### [facility] [address] [place] [address] Dr. Mirian Velasco SPEC GRAVITY 1.015 Normal 1.005-<=1. 025 [facility] Comment on above: Performed By: #### P T #### [facility] [address] [place] [address] Dr. Mirian Velasco UA PROTEIN Negative Normal NEGATIVE/ TRACE [facility] Comment on above: Performed By: #### P T #### [facility] [address] [place] [address] Dr. Mirian Velasco UR MICRO IND INDICATED Normal [facility] Comment on above: Performed By: #### P T #### [facility] [address] [place] [address] Dr. Mirian Velasco Urobilinogen Qn (U) 0.2 {Lyubov'U}/dL Normal 0.2 - 1. 0 [facility] Comment on above: Performed By: #### P T #### [facility] [address] [place] [address] Dr. Mirian Velasco LACTATE/LACTIC ACIDon 2021 Lactate [Moles/Vol] 1.3 mmol/L Normal 0.4-1.9 [facility] Comment on above: Performed By: #### L ACT #### [facility] [address] [place] [address] Dr. Mirian Velasco LIPASEon 10-20-2022 Lipase [Catalytic activity/Vol] 49.0 U/L Critically low 73.0-393.0 [facility] Comment on above: Performed By: #### P T #### [facility] [address] [place] [address] [address] Mirian Velasco PROF 14(COMP METB)on 10-20- 022 Albumin [Mass/Vol] 3.2 g/dL Critically low 3.4-5.0 [facility] Comment on above: Performed By: #### P T #### [facility] [address] [place] [address] Dr. Mirian Velasco Albumin/Globulin [Mass ratio] 0.9 {ratio} Normal [facility] Comment on above: Performed By: #### P T #### [facility] [address] [place] [address] Dr. Mirian Velasco ALP [Catalytic activity/Vol] 129 U/L Critically high 46-116 [facility] Comment on above: Performed By: #### P T #### [facility] [address] [place] [address] Dr. Mirian Velasco ALT [Catalytic activity/Vol] 25 U/L Normal 14-59 [facility] Comment on above: Performed By: #### P T #### [facility] [address] [place] [address] Dr. Mirian Velasco Anion gap [Moles/Vol] 10.7 mmol/L Normal [facility] Comment on above: Performed By: #### P T #### [facility] [address] [place] [address] Dr. Mirian Velasco AST [Catalytic activity/Vol] 20 U/L Normal 15-37 [facility] Comment on above: Performed By: #### P T #### [facility] [address] [place] [address] Dr. Mirian Velasco Bilirubin [Mass/Vol] 0.5 mg/dL Normal 0.2-1.0 [facility] Comment on above: Performed By: #### P T #### [facility] [address] [place] [address] Dr. Mirian Velasco Calcium [Mass/Vol] 9.2 mg/dL Normal 8.5-10.1 [facility] Comment on above: Performed By: #### P T #### [facility] [address] [place] [address] Dr. Mirian Velasco Chloride [Moles/Vol] 102 mmol/L Normal 98-107 [facility] Comment on above: Performed By: #### P T #### [facility] [address] [place] [address] [address] Mirian Velasco CO2 [Moles/Vol] 30.0 mmol/L Normal 21.0-32.0 [facility] Comment on above: Performed By: #### P T #### [facility] [address] [place] [address] Dr. Mirian Velasco Creatinine [Mass/Vol] 0.68 mg/dL Normal 0.55-1.02 [facility] Comment on above: Performed By: #### P T #### [facility] [address] [place] [address] Dr. Mirian Velasco EGFR-AF STATELESS >60 Normal >=60 [facility] Comment on above: Performed By: #### P T #### [facility] [address] [place] [address] Dr. Mirian Velasco EGFR-NON AF STATELESS >60 Normal >=60 [facility] Comment on above: Performed By: #### P T #### [facility] [address] [place] [address] Dr. Mirian Velasco Globulin (S) [Mass/Vol] 3.7 g/dL Normal [facility] Comment on above: Performed By: #### P T #### [facility] [address] [place] [address] Dr. Mirian Velasco Glucose [Mass/Vol] 109 mg/dL Critically high 74-106 [facility] Comment on above: Performed By: #### P T #### [facility] [address] [place] [address] Dr. Mirian Velasco Potassium [Moles/Vol] 3.7 mmol/L Normal 3.5-5.1 [facility] Comment on above: Performed By: #### P T #### [facility] [address] [place] [address] Dr. Mirian Velasco Protein [Mass/Vol] 6.9 g/dL Normal 6.4-8.2 [facility] Comment on above: Performed By: #### P T #### [facility] [address] [place] [address] Dr. Mirian Velasco Sodium [Moles/Vol] 139 mmol/L Normal 136-145 [facility] Comment on above: Performed By: #### P T #### [facility] [address] [place] [address] Dr. Mirian Velasco Urea nitrogen [Mass/Vol] 13.0 mg/dL Normal 7.0-18.0 [facility] Comment on above: Performed By: #### P T #### [facility] [address] [place] [address] Dr. Mirian Velasco Urea nitrogen/Creatinine [Mass ratio] 19.1 mg/mg Normal [facility] Comment on above: Performed By: #### P T #### [facility] [address] [place] [address] Dr. Mirian Velasco URINE MICROSCOPIC ONLYon BACTERIA TRACE Abnormal NONE SEEN [facility] Comment on above: Performed By: #### P T #### [facility] [address] [place] [address] Dr. Mirian Velasco Bacteria identified Cx Nom (U) INDICATED Normal [facility] Comment on above: Performed By: #### P T #### [facility] [address] [place] [address] Dr. Mirian Velasco CAST NONE SEEN Normal NONE SEEN [facility] Comment on above: Performed By: #### P T #### [facility] [address] [place] [address] Dr. Mirian Velasco Crystals LM Nom (Urine sed) NONE SEEN Normal NONE SEEN [facility] Comment on above: Performed By: #### P T #### [facility] [address] [place] [address] Dr. Mirian Velasco Epithelial cells LM Ql (Urine sed) MODERATE Abnormal NONE SEEN /RARE [facility] Comment on above: Performed By: #### P T #### [facility] [address] [place] [address] Dr. Mirian Velasco MUCOUS NONE SEEN Normal NONE SEEN [facility] Comment on above: Performed By: #### P T #### [facility] [address] [place] [address] [address] Mirian Velasco RBC NONE SEEN Abnormal 0-2 [facility] Comment on above: Performed By: #### P T #### [facility] [address] [place] [address] [address] Mirian Velasco WBC 2-5 Abnormal NONE SEEN [facility] Comment on above: Performed By: #### P T #### [facility] [address] [place] [address] [address] Mirian Velasco YEAST PRESENT Abnormal NONE SEEN [facility] Comment on above: Result Comment: RARE BUDDING YEAST Performed By: #### P T #### [facility] [address] [place] [address] [address] Mirina Velasco POINT OF CARE GLUCOSEon 10-06 Glucose [Mass/Vol] 131 mg/dL Critically high 74-106 [facility] Comment on above: Performed By: #### P OCGLUC ####[facility] [id number] [place] [address]Dr. Mirian Velasco Glucose [Mass/Vol] 113 mg/dL Critically high 74-106 [facility] Comment on above: Performed By: #### P OCGLUC ####[facility] [address] [place] [address]Dr. Mirian Velasco XR FOOT RT 2Von 10-17-2022 [...] NICKI DACOSTA Date: 2022-10-17 18:04 Normal [facility] Covid-19 PCR (CVDTB)on SARS-CoV-2 (COVID-19) RNA JOSÉ MIGUEL+probe Ql (Unsp spec) Not detected Normal NOT DETECTED [facility] Comment on above: Result Comment: This test is not yet approved or cleared by the [place] FDA. When there are no FDA-approved or cleared tests available, and other criteria are met, FDA can make tests available under an emergency access mechanism called an Emergency Use Authorization (EUA). The EUA for this test is supported by the [place] of Health and Human Service's (HHS's) declaration [...] consistent with SARS-CoV-2. Performed By: #### [facility] #### [facility] [address] [place] [address] Dr. Mirian Velasco Diagnostic Mammogram, Unilat eral [...] VERY IMPORTANT TO YOUR HEALTH. THE CURRENT STATELESS COLLEGE OF RADIOLOGY AND NATIONAL COMPREHENSIVE CANCER NETWORK GUIDELINES RECOMMENDS ANNUAL MAMMOGRAPHY BEGINNING AT AGE 40 THIS FACILITY USES A REMINDER SYSTEM TO ENSURE ALL PATIENTS RECEIVE REMINDER NOTIFICATIONS AT THE APPROPRIATE TIME BASED ON THE RECOMMENDATIONS OF THIS EXAM. Board Certified Radiologist. Accredited by the ACR and FDA. Report reported and signed by Dawna Lizarraga on 09/28/2022 1307 Normal [facility] CBC AUTO DIFFon 09-26-2022 BASO # 0.1 103/ul Normal 0.0-0.1 [facility] Comment on above: Performed By: #### L ACT #### [facility] [address] [place] [address] [address] Mirian Velasco Basophils/100 WBC (Bld) 0.8 % Normal 0.2-2.0 [facility] Comment on above: Performed By: #### L ACT #### [facility] [address] [place] [address] [address] Mirian Velasco EO # 0.1 103/ul Normal 0.0-0.7 [facility] Comment on above: Performed By: #### L ACT #### [facility] [address] [place] [address] Dr. Mirian Velasco Eosinophils/100 WBC (Bld) 1.5 % Normal 0.9-7.0 [facility] Comment on above: Performed By: #### L ACT #### [facility] [address] [place] [address] Dr. Mirian Velasco Erythrocyte distribution width (RBC) [Ratio] 13.4 % Normal 11.0-15.0 [facility] Comment on above: Performed By: #### L ACT #### [facility] [address] [place] [address] Dr. Mirian Velasco Hematocrit (Bld) [Volume fraction] 41.3 % Normal 36.0-48.0 [facility] Comment on above: Performed By: #### L ACT #### [facility] [address] [place] [address] Dr. Mirian Velasco Hemoglobin (Bld) [Mass/Vol] 13.4 g/dL Normal 12.0-16.0 [facility] Comment on above: Performed By: #### L ACT #### [facility] [address] [place] [address] Dr. Mirian Velasco IG # 0.04 10e3/ul Critically high 0.00-0.03 [facility] Comment on above: Performed By: #### L ACT #### [facility] [address] [place] [address] [address] Mirian Velasco IG % 0.5 % Normal 0.0-0.5 [facility] Comment on above: Performed By: #### L ACT #### [facility] [address] [place] [address] [address] Mirian Velasco LYMPH # 2.5 103/ul Normal 1.2-3.8 [facility] Comment on above: Performed By: #### L ACT #### [facility] [address] [place] [address] [address] Mirian Velasco Lymphocytes/100 WBC (Bld) 27.7 % Normal 20.5-60.0 [facility] Comment on above: Performed By: #### L ACT #### [facility] [address] [place] [address] Dr. Mirian Velasco MANUAL DIFF REQ NO Normal [facility] Comment on above: Performed By: #### L ACT #### [facility] [address] [place] [address] Dr. Mirian Velasco MCH (RBC) [Entitic mass] 27.6 pg Normal 26.7-34.0 [facility] Comment on above: Performed By: #### L ACT #### [facility] [address] [place] [address] Dr. Mirian Velasco MCHC (RBC) [Mass/Vol] 32.4 g/dL Normal 29.9-35.2 [facility] Comment on above: Performed By: #### L ACT #### [facility] [address] [place] [address] Dr. Mirian Velasco MCV (RBC) [Entitic vol] 85.0 fL Normal 81.0-99.0 [facility] Comment on above: Performed By: #### L ACT #### [facility] [address] [place] [address] Dr. Mirian Velasco MONO # 0.6 103/ul Normal 0.3-0.8 [facility] Comment on above: Performed By: #### L ACT #### [facility] [address] [place] [address] Dr. Mirian Velasco Monocytes/100 WBC (Bld) 6.9 % Normal 1.7-12.0 [facility] Comment on above: Performed By: #### L ACT #### [facility] [address] [place] [address] [address] Mirian Velasco NEUT # 5.6 103/ul Normal 1.4-6.5 [facility] Comment on above: Performed By: #### L ACT #### [facility] [address] [address] [address] Mirian Velasco Neutrophils/100 WBC (Bld) 62.6 % Normal 43.0-75.0 [facility] Comment on above: Performed By: #### L ACT #### [facility] [address] [place] [address] [address] Mirian Velasco Platelet mean volume (Bld) [Entitic vol] 8.6 fL Critically low 9.5-13.5 [facility] Comment on above: Performed By: #### L ACT #### [facility] [address] [place] [address] Dr. Mirian Velasco PLT 372 103/ul Normal 150-450 [facility] Comment on above: Performed By: #### L ACT #### [facility] [address] [place] [address] Dr. Mirian Velasco RBC 4.86 106/ul Normal 4.20-5.40 [facility] Comment on above: Performed By: #### L ACT #### [facility] [address] [place] [address] Dr. Mirian Velasco WBC 8.9 103/ul Normal 4.0-11.0 [facility] Comment on above: Performed By: #### L ACT #### [facility] [address] [place] [address] Dr. Mirian Velasco PROF CHEM 8 (BAS METB)on Anion gap [Moles/Vol] 8.0 mmol/L Normal [facility] Comment on above: Performed By: #### P T #### [facility] [address] [place] [address] Dr. Mirian Velasco Calcium [Mass/Vol] 9.0 mg/dL Normal 8.5-10.1 [facility] Comment on above: Performed By: #### P T #### [facility] [address] [place] [address] Dr. Mirian Velasco Chloride [Moles/Vol] 106 mmol/L Normal 98-107 [facility] Comment on above: Performed By: #### P T #### [facility] [address] [place] [address] [address] Mirian Velasco CO2 [Moles/Vol] 30.3 mmol/L Normal 21.0-32.0 [facility] Comment on above: Performed By: #### P T #### [facility] [address] [place] [address] [address] Mirian Velasco Creatinine [Mass/Vol] 0.71 mg/dL Normal 0.55-1.02 [facility] Comment on above: Performed By: #### P T #### [facility] [address] [place] [address] Dr. Mirian Velasco EGFR-AF STATELESS >60 Normal >=60 [facility] Comment on above: Performed By: #### P T #### [facility] [address] [place] [address] Dr. Mirian Velasco EGFR-NON AF STATELESS >60 Normal >=60 [facility] Comment on above: Performed By: #### P T #### [facility] [address] [place] [address] Dr. Mirian Velasco Glucose [Mass/Vol] 81 mg/dL Normal 74-106 [facility] Comment on above: Performed By: #### P T #### [facility] [address] [place] [address] Dr. Mirian Velasco Potassium [Moles/Vol] 4.3 mmol/L Normal 3.5-5.1 [facility] Comment on above: Performed By: #### P T #### [facility] [address] [place] [address] Dr. Mirian Velasco Sodium [Moles/Vol] 140 mmol/L Normal 136-145 [facility] Comment on above: Performed By: #### P T #### [facility] [address] [place] [address] Dr. Mirian Velasco Urea nitrogen [Mass/Vol] 16.0 mg/dL Normal 7.0-18.0 [facility] Comment on above: Performed By: #### P T #### [facility] [address] [place] [address] [address] Mirian Velasco Urea nitrogen/Creatinine [Mass ratio] 22.5 mg/mg Normal [facility] Comment on above: Performed By: #### P T #### [facility] [address] [address] [address] Mirian Velasco C reactive protein [Mass/vol ume] in Serum or PlasmaOrdered By: Beto Harris on 09-22-2022 CRP [Mass/Vol] 0.6 mg/dL 0.0-1.0 [facility] C-Reactive Proteinon 022 C-Reactive Protein 0.6 mg/dL Normal 0.0-1.0 mg/dL [facility] [employer] Other Erythrocyte Sedimentation Ra lian 09-22-2022 ESR (Bld) [Velocity] 4 mm/h Normal 0-29 [facility] [employer] Other Erythrocyte sedimentation ra te by Photometric methodOrdered By: Beto Harris on 09-22-2022 ESR Photometric method (Bld) [Velocity] 4 mm/hr 0-29 [facility] Serum nuclear antibody titer Ordered By: Beto Harris on 09-22-2022 Nuclear Ab (S) [Titer] Negative . [facility] Comment on above: Negative <1:80 Borde peaceine 1:80 Positive >1:80ICAP nomenclature: AC-0For more information about Hep-2 cell patterns useANApatterns.org, the official website for theInternational Consensus on Antinuclear Antibody (CHUYITA)Patterns (ICAP).Performed at: [employer] [id number] Director: Erick Neville PhD, Phone: [phone] Serum or plasma rheumatoid f actor measurement (units/volume)Ordered By: Beto Harris on 09-22-2022 Rheumatoid factor Qn [IU]/mL <14.0 [facility] Comment on above: Performed at: - [facility] [address] [id number] Director: Erick Neville PhD, Phone: [phone] Serum or plasma thyroxine (T 4) measurement (mass/volume)Ordered By: Beto Harris on 09-22-2022 T4 [Mass/Vol] 9.82 ug/dL 5.39-11.82 [facility] Serum or plasma uric acid me asurement (mass/volume)Ordered By: Beto Harris on 09-22-2022 Urate [Mass/Vol] 4.2 mg/dL 2.6-7.2 [facility] TSH DL <= 0.005 mIU/L QnOrde red By: Beto Harris on 09-22-2022 TSH Qn 1.98 m[IU]/L 0.45-5.33 [facility] Thyroid Stimulating Hormoneo n 09-22-2022 TSH Qn [id number] m[IU]/L Normal 0.45-5 .33 u[iU]/mL [facility] [employer] Other Thyroxine (T4) Totalon 09-22 Thyroxine (T4) Total 9.82 ug/dL Normal 5.39-11 .82 ug/dL [employer] Other Uric Acidon 09-22-2022 Urate [Mass/Vol] 4.0288211 mg/dL Normal 2.6-7.2 mg/dL [employer] Other XR knee BI 2Von 09-22-2022 XR knee BI 2V [facility] [employer] Other XR knee BI 2V [facility] Main [facility] [employer] Other XR knee BI 2V [address] [place] [address] [employer] Other XR knee [place] 2[place] [address] [facility] [employer] Other XR knee BI 2V [facility] Other XR knee BI 2V Signed [employer] Other XR knee BI 2V Patient: Darrian Leal MR#: [id number] [employer] Other XR knee BI 2V 863 [employer] Other XR knee BI 2V : 1970 Acct:[id number] [employer] Other XR knee BI 2V Age/Sex: 52 / F ADM Date: 09/22/22 [employer] Other XR knee BI 2V Loc: [facility] Room: Type : [facility] [employer] Other XR knee BI 2V Attending Dr: Beto Harris MD [employer] Other XR knee BI 2V Copies to: Beto Harris MD [employer] Other XR knee BI 2V Ordering Provider: Carey Harris MD [employer] Other XR knee BI 2V Date of Service: 09/22/22 [employer] Other XR knee BI 2V XR/XR knee BI 2V: Knee pain [employer] Other XR knee BI 2V XR knee BI 2V 2021 9:23 AM [employer] Other XR knee BI 2V SIGNS AND SYMPTOMS: Bilateral knee pain right greater than left [employer] Other XR knee BI 2V PROTOCOL: Frontal an d lateral radiographs of the bilateral knees [employer] Other XR knee BI 2V COMPARISON: None [employer] Other XR knee BI 2V FINDINGS: [employer] Other XR knee BI 2V There is evidence of prior ACL repair in the left knee with mild narrowing of the weightbearing [employer] Other XR knee BI 2V joint spaces on the left. The joint spaces are otherwise preserved. There is no fracture or [employer] Other XR knee BI 2V dislocation. No join t effusion or soft tissue swelling. [employer] Other XR knee BI 2V X R/XR knee BI 2V [employer] Other XR knee BI 2V IMPRESSION: [employer] Other XR knee BI 2V Status post ACL repa ir on the left. [employer] Other XR knee BI 2V Mild degenerative ch anges are noted in the weightbearing joint spaces of the left. [employer] Other XR knee BI 2V No acute bony injury. [employer] Other XR knee BI 2V Impression dictated by: Rajiv Garcia M.D.09/22/2022 2:17 PM [employer] Other XR knee BI 2V Dictation Location: [place] [address] [employer] Other XR knee BI 2V Transcribed By: MARIO 09/22/22 [employer] Other XR knee BI 2V Dictated By: Rajiv Garcia II, MD 09/22/22 [facility] [employer] Other XR knee BI 2V Signed By: [employer] Other XR knee BI 2V 09/22/22 [employer] Other XR shoulder BI min 2Von 09-06 XR shoulder BI min 2V XR/XR shoulder BI min 2V: Shoulder pain [employer] Other XR shoulder BI min 2V XR shoulder BI min 2V 09/22/2022 9:23 AM [employer] Other XR shoulder BI min 2V SIGNS AND SYMPTOMS : Bilateral shoulder pain with limited range of motion [employer] Other XR shoulder BI min 2V PROTOCOL: Frontal, Grashey, scapular Y, and axillary views of the bilateral shoulders [employer] Other XR shoulder BI min 2V COMPARISON: 02/26/2018 [employer] Other XR shoulder BI min 2V There has been bon y resorption of the lateral margin of the clavicle on the right suggesting [employer] Other XR shoulder BI min 2V osteomyelitis is w hich may be degenerative or traumatic. Mild hypertrophy of the AC joint is noted. [employer] Other XR shoulder BI min 2V The glenohumeral j oint is preserved on the right. There is subcortical sclerosis greater tuberosity [employer] Other XR shoulder BI min 2V of the right sugge sting underlying rotator cuff abnormalities. This is new when compared to the [employer] Other XR shoulder BI min 2V prior exam. The visualized right hemithorax is grossly intact. [employer] Other XR shoulder BI min 2V There is mild hype rtrophy of the left acromioclavicular joint. There is mild subcortical sclerosis [employer] Other XR shoulder BI min 2V of the greater tub erosity in the left suggesting underlying rotator cuff abnormalities. The [employer] Other XR shoulder BI min 2V glenohumeral joint is preserved. There is no fracture or dislocation. Visualized left hemithorax is [employer] Other XR shoulder BI min 2V grossly intact. [employer] Other XR shoulder BI min 2V There is partial visualization of intervertebral disc arthroplasty is noted within the lower [employer] Other XR shoulder BI min 2V cervical spine. 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 [employer] Other XR shoulder BI min 2V Rudimentary ribs a re noted at C7, right greater than left [employer] Other XR shoulder BI min 2V Impression dictate d by: Rajiv Garcia M.D.09/22/2022 2:20 PM [employer] Other XR shoulder BI min 2V Transcribed By: KT Thorpe 09/22/22 1420 [employer] Other XR shoulder BI min 2V Dictated By: Rajiv Garcia II, MD 09/22/22 1417 [employer] Other XR shoulder BI min 2V 09/22/22 5915 [employer] Other SCREENING MAMMOGRAM W/RUSSEL, BILATERAL*on 09-14-2022 SCREENING [...] IS VERY IMPORTANT TO YOUR HEALTH. CURRENT STATELESS [employer] GUIDELINES RECOMMENDS ANNUAL MAMMOGRAPHY BEGINNING AT AGE 42. THIS FACILITY USUALLY USES A REMINDER SYSTEM TO ENSURE ALL POSITIONS RECEIVED REMINDER NOTIFICATIONS AT THE TIME BASED ON THE RECOMMENDATIONS OF THIS EXAM. Report reported and signed by Zaida Diaz on 09/16/2022 1334 Normal [facility] Navigator Tobacco Screening.on 022 Adult depression screening assessment No -[facility] [facility] [address] DO Work Phone: Tobacco use status [facility] b) No -[facility] DO Work Phone: COVID Quick Testingon 2021 Result Negative [employer] Other AMYLASEon 04-17-2022 Amylase [Catalytic activity/Vol] 38 U/L Normal 25-115 [facility] Comment on above: Performed By: #### P T #### [facility] [address] [place] [address] Dr. Mirian Velasco CBC AUTO DIFFon 04-17-2022 BASO # 0.1 103/ul Normal 0.0-0.1 [facility] Comment on above: Performed By: #### L ACT #### [facility] [address] [place] [address] Dr. Mirian Velasco Basophils/100 WBC (Bld) 1.0 % Normal 0.2-2.0 [facility] Comment on above: Performed By: #### L ACT #### [facility] [address] [place] [address] Dr. Mirian Velasco EO # 0.2 103/ul Normal 0.0-0.7 [facility] Comment on above: Performed By: #### L ACT #### [facility] [address] [place] [address] Dr. Mirian Velasco Eosinophils/100 WBC (Bld) 3.3 % Normal 0.9-7.0 [facility] Comment on above: Performed By: #### L ACT #### [facility] [address] [place] [address] Dr. Mirian Velasco Erythrocyte distribution width (RBC) [Ratio] 12.0 % Normal 11.0-15.0 [facility] Comment on above: Performed By: #### L ACT #### [facility] [address] [address] [address] Mirian Velasco Hematocrit (Bld) [Volume fraction] 37.3 % Normal 36.0-48.0 [facility] Comment on above: Performed By: #### L ACT #### [facility] [address] [place] [address] Dr. Mirian Velasco Hemoglobin (Bld) [Mass/Vol] 12.1 g/dL Normal 12.0-16.0 [facility] Comment on above: Performed By: #### L ACT #### [facility] [address] [place] [address] Dr. Mirian Velasco IG # 0.03 10e3/ul Normal 0.00-0.03 [facility] Comment on above: Performed By: #### L ACT #### [facility] [address] [place] [address] Dr. Mirian Velasco IG % 0.4 % Normal 0.0-0.5 [facility] Comment on above: Performed By: #### L ACT #### [facility] [address] [place] [address] Dr. Mirian Velasco LYMPH # 1.8 103/ul Normal 1.2-3.8 [facility] Comment on above: Performed By: #### L ACT #### [facility] [address] [place] [address] Dr. Mirian Velasco Lymphocytes/100 WBC (Bld) 25.2 % Normal 20.5-60.0 [facility] Comment on above: Performed By: #### L ACT #### [facility] [address] [place] [address] Dr. Mirian Velasco MANUAL DIFF REQ NO Normal [facility] Comment on above: Performed By: #### L ACT #### [facility] [address] [place] [address] Dr. Mirian Velasco MCH (RBC) [Entitic mass] 29.0 pg Normal 26.7-34.0 [facility] Comment on above: Performed By: #### L ACT #### [facility] [address] [place] [address] [address] Mirian Velasco MCHC (RBC) [Mass/Vol] 32.4 g/dL Normal 29.9-35.2 [facility] Comment on above: Performed By: #### L ACT #### [facility] [address] [place] [address] [address] Mirian Velasco MCV (RBC) [Entitic vol] 89.4 fL Normal 81.0-99.0 [facility] Comment on above: Performed By: #### L ACT #### [facility] [address] [place] [address] [address] Mirian Velasco MONO # 0.4 103/ul Normal 0.3-0.8 [facility] Comment on above: Performed By: #### L ACT #### [facility] [address] [place] [address] [address] Mirian Velasco Monocytes/100 WBC (Bld) 5.8 % Normal 1.7-12.0 [facility] Comment on above: Performed By: #### L ACT #### [facility] [address] [place] [address] [address] Mirian Velasco NEUT # 4.6 103/ul Normal 1.4-6.5 [facility] Comment on above: Performed By: #### L ACT #### [facility] [address] [place] [address] [address] Mirian Velasco Neutrophils/100 WBC (Bld) 64.3 % Normal 43.0-75.0 [facility] Comment on above: Performed By: #### L ACT #### [facility] [address] [place] [address] [address] Mirian Velasco Platelet mean volume (Bld) [Entitic vol] 8.6 fL Critically low 9.5-13.5 [facility] Comment on above: Performed By: #### L ACT #### [facility] [address] [place] [address] [address] Mirian Velasco PLT 597 103/ul Critically high 150-450 [facility] Comment on above: Performed By: #### L ACT #### [facility] [address] [place], [place] [address] Dr. Mirian Velasco RBC 4.17 106/ul Critically low 4.20-5.40 [facility] Comment on above: Performed By: #### L ACT #### [facility] [address] [place], [place] [address] Dr. Mirian Velasco WBC 7.2 103/ul Normal 4.0-11.0 [facility] Comment on above: Performed By: #### L ACT #### [facility] [address] [place], [place] [address] ABD/PELVIS WO CONon [...] LORRI TRIPLETT Date: 2022-04-17 11:19 Normal [facility] ER URINE PROFILEon 2 Bilirubin Ql (U) Negative Normal NEGATIVE [facility] Comment on above: Performed By: #### P T #### [facility] [address] [place] [address] [address] Mirian Velasco Clarity (U) CLEAR Normal CLEAR [facility] Comment on above: Performed By: #### P T #### [facility] [address] [place] [address] [address] Mirian Velasco Color (U) YELLOW Normal YELLOW [facility] Comment on above: Performed By: #### P T #### [facility] [address] [place] [address] Dr. Mirian Velasco ERURAVI A micrscopic examina tion will be performed if indicated. Normal [facility] Comment on above: Performed By: #### P T #### [facility] [address] [place] [address] [address] Mirian Velasco Glucose Ql (U) Negative Normal NEGATIVE [facility] Comment on above: Performed By: #### P T #### [facility] [address] [place] [address] Dr. Mirian Velasco Hemoglobin Ql (U) Negative Normal NEGATIVE [facility] Comment on above: Performed By: #### P T #### [facility] [address] [place] [address] [address] Mirian Velasco Ketones Ql (U) Negative Normal NEGATIVE [facility] Comment on above: Performed By: #### P T #### [facility] [address] [place] [address] [address] Mirian Velasco LEUKOCYTES Negative Normal NEGATIVE [facility] Comment on above: Performed By: #### P T #### [facility] [address] [place] [address] Dr. Mirian Velasco Nitrite Ql (U) Negative Normal NEGATIVE [facility] Comment on above: Performed By: #### P T #### [facility] [address] [place] [address] Dr. Mirian Velasco pH (U) 5.5 [pH] Normal 5-9 [facility] Comment on above: Performed By: #### P T #### [facility] [address] [place] [address] Dr. Mirian Velasco SPEC GRAVITY >=1.030 Abnormal 1.005-<=1. 025 [facility] Comment on above: Performed By: #### P T #### [facility] [address] [place] [address] Dr. Mirian Velasco UA PROTEIN Negative Normal NEGATIVE/ TRACE [facility] Comment on above: Performed By: #### P T #### [facility] [address] [place] [address] Dr. Mirian Velasco UR MICRO IND NOT INDICATED Normal [facility] Comment on above: Performed By: #### P T #### [facility] [address] [place] [address] Dr. Mirian Velasco Urobilinogen Qn (U) 0.2 {Lyubov'U}/dL Normal 0.2 - 1. 0 [facility] Comment on above: Performed By: #### P T #### [facility] [address] [place] [address] Dr. Mirian Velasco LIPASEon 04-17-2022 Lipase [Catalytic activity/Vol] 117.0 U/L Normal 73.0-393.0 [facility] Comment on above: Performed By: #### P T #### [facility] [address] [place] [address] Dr. Mirian Velasco PROF 14(COMP METB)on 022 Albumin [Mass/Vol] 3.5 g/dL Normal 3.4-5.0 [facility] Comment on above: Performed By: #### P T #### [facility] [address] [place] [address] Dr. Mirian Velasco Albumin/Globulin [Mass ratio] 0.9 {ratio} Normal [facility] Comment on above: Performed By: #### P T #### [facility] [address] [place] [address] [address] Mirian Velasco ALP [Catalytic activity/Vol] 237 U/L Critically high 46-116 [facility] Comment on above: Performed By: #### P T #### [facility] [address] [place] [address] [address] Mirian Velasco ALT [Catalytic activity/Vol] 53 U/L Normal 14-59 [facility] Comment on above: Performed By: #### P T #### [facility] [address] [place] [address] Dr. Mirian Velasco Anion gap [Moles/Vol] 11.0 mmol/L Normal [facility] Comment on above: Performed By: #### P T #### [facility] [address] [place] [address] Dr. Mirian Velasco AST [Catalytic activity/Vol] 45 U/L Critically high 15-37 [facility] Comment on above: Performed By: #### P T #### [facility] [address] [place] [address] Dr. Mirian Velasco Bilirubin [Mass/Vol] 0.2 mg/dL Normal 0.2-1.0 [facility] Comment on above: Performed By: #### P T #### [facility] [address] [place] [address] Dr. Mirian Velasco Calcium [Mass/Vol] 9.3 mg/dL Normal 8.5-10.1 [facility] Comment on above: Performed By: #### P T #### [facility] [address] [place] [address] Dr. Mirian Velasco Chloride [Moles/Vol] 105 mmol/L Normal 98-107 [facility] Comment on above: Performed By: #### P T #### [facility] [address] [place] [address] Dr. Mirian Velasco CO2 [Moles/Vol] 29.5 mmol/L Normal 21.0-32.0 [facility] Comment on above: Performed By: #### P T #### [facility] [address] [place] [address] Dr. Mirian Velasco Creatinine [Mass/Vol] 0.69 mg/dL Normal 0.55-1.02 [facility] Comment on above: Performed By: #### P T #### [facility] [address] [address] [address] Mirian Velasco EGFR-AF STATELESS >110 Normal >=60 [facility] Comment on above: Performed By: #### P T #### [facility] [address] [address] [address] Mirian Velasco EGFR-NON AF STATELESS >90 Normal >=60 [facility] Comment on above: Performed By: #### P T #### [facility] [address] [place] [address] Dr. Mirian Velasco Globulin (S) [Mass/Vol] 4.0 g/dL Normal [facility] Comment on above: Performed By: #### P T #### [facility] [address] [place] [address] Dr. Mirian Velasco Glucose [Mass/Vol] 107 mg/dL Critically high 74-106 [facility] Comment on above: Performed By: #### P T #### [facility] [address] [address] [address] Mirian Velasco Potassium [Moles/Vol] 4.5 mmol/L Normal 3.5-5.1 [facility] Comment on above: Performed By: #### P T #### [facility] [address] [place] [address] Dr. Mirian Velasco Protein [Mass/Vol] 7.5 g/dL Normal 6.4-8.2 [facility] Comment on above: Performed By: #### P T #### [facility] [address] [address] [address] Mirian Velasco Sodium [Moles/Vol] 141 mmol/L Normal 136-145 [facility] Comment on above: Performed By: #### P T #### [facility] [address] [place] [address] Dr. Mirian Velasco Urea nitrogen [Mass/Vol] 11.0 mg/dL Normal 7.0-18.0 [facility] Comment on above: Performed By: #### P T #### [facility] [address] [address] [address] Mirian Velasco Urea nitrogen/Creatinine [Mass ratio] 15.9 mg/mg Normal [facility] Comment on above: Performed By: #### P T #### [facility] [address] [place] [address] [address] Mirian Velasco XR CHEST 1 Von 04-17-2022 XR CHEST 1 V EXAM: Chest x-ray HISTORY: Pain. COMPARISON: 02/20/2022 TECHNIQUE: AP portable upright view of the chest. FINDINGS: Heart and Vascularity are unremarkable. Lungs are free of focal infiltrates. No effusions are noted. Impression: No acute heart or lung disease identified. Electronically authenticated by: NICKI BUTT Date: 2022-04-17 11:03 Normal [facility] Basic metabolic 2000 panelon 04-05-2022 Anion gap [Moles/Vol] 13 mmol/L Normal 9-18 [facility] Comment on above: Order Comment: Speci men Type: BLOOD SPECIMEN Ordering Facility: [facility] Address: [address] [place] [address] Performed By: #### 5 8410-2 #### [facility] CLIA [id number] [address] [place] [address] [place] Calcium [Mass/Vol] 9.0 mg/dL Normal 8.5-10.2 [facility] Comment on above: Order Comment: Speci men Type: BLOOD SPECIMEN Ordering Facility: [facility] Address: [address] [place] [address] Performed By: #### 5 8410-2 #### [facility] CLIA [id number] [address] [place] [address] [place] Chloride [Moles/Vol] 104 mmol/L Normal 97-105 [facility] Comment on above: Order Comment: Speci men Type: BLOOD SPECIMEN Ordering Facility: [facility] Address: [address] [address] Performed By: #### 5 8410-2 #### [facility] CLIA [id number] [address] [place] [address] [place] CO2 [Moles/Vol] 25 mmol/L Normal 22-30 [facility] Comment on above: Order Comment: Speci men Type: BLOOD SPECIMEN Ordering Facility: [facility] Address: [address] [place] [address] Performed By: #### 5 8410-2 #### [facility] CLIA [id number] [place] [address] [place] Creatinine [Mass/Vol] 0.65 mg/dL Normal 0.58-0.96 [facility] Comment on above: Order Comment: Speci men Type: BLOOD SPECIMEN Ordering Facility: [facility] Address: [address] [place] [address] Performed By: #### 5 8410-2 #### [facility] CLIA [id number] [address] [place] [address] OF [facility] ESTIMATED GLOMERULAR FILTRATION RATE 108 mL/min/1.73m??? Normal >=60 [facility] Comment on above: Order Comment: Speci men Type: BLOOD SPECIMEN Ordering Facility: [facility] Address: [address] [place] [address] Result Comment: Mary mated Glomerular Filtration Rate [...] GFR. Performed By: #### 5 8410-2 #### [facility] CLIA [id number] [address] [place] [address] [place] Glucose [Mass/Vol] 109 mg/dL High 74-99 [facility] Comment on above: Order Comment: Speci men Type: BLOOD SPECIMEN Ordering Facility: [facility] Address: [address] [place] [address] Result Comment: The Stateless Diabetes Association (ADA) provides guidance for cutoff [...] Standards of Medical Care in Diabetes 2016, Stateless Diabetes Association. Diabetes Care. 2016.39(Suppl 1). Performed By: #### 5 8410-2 #### [facility] CLIA [id number] [address] [place] [address] [place] Potassium [Moles/Vol] 3.9 mmol/L Normal 3.7-5.1 [facility] Comment on above: Order Comment: Speci men Type: BLOOD SPECIMEN Ordering Facility: [facility] Address: [address] [place] [address] Performed By: #### 5 8410-2 #### [facility] CLIA [id number] [address] [place] [address] [place] Sodium [Moles/Vol] 142 mmol/L Normal 136-144 [facility] Comment on above: Order Comment: Everettei harrison Type: BLOOD SPECIMEN Ordering Facility: [facility] Address: [address] [place] [address] Performed By: #### 5 8410-2 #### [facility] CLIA [id number] [address] [place] [address] [place] Urea nitrogen [Mass/Vol] 7 mg/dL Normal 7-21 [facility] Comment on above: Order Comment: Everettei men Type: BLOOD SPECIMEN Ordering Facility: [facility] Address: [address] [place] [address] Performed By: #### 5 8410-2 #### [facility] CLIA [id number] [address] [place] [address] [place] CBC W Auto Differential pane l (Bld)on 04-05-2022 Basophils (Bld) [#/Vol] 0.05 10*3/uL Normal <0.11 [facility] Comment on above: Order Comment: Speci men Type: BLOOD SPECIMENOrdering Facility: [facility] Address: [address] [place] [address] Performed By: #### B MP #### [place] [id number] Basophils/100 WBC (Bld) 0.7 % Normal [facility] Comment on above: Order Comment: Speci men Type: BLOOD SPECIMENOrdering Facility: [facility] Address: [address] [place] [address] Performed By: #### B MP #### [phone] Differential cell count method Nom (Bld) Auto Normal [facility] Comment on above: Order Comment: Speci men Type: BLOOD SPECIMENOrdering Facility: [facility] Address: [address] [place] [address] Performed By: #### B MP #### [phone] Eosinophils (Bld) [#/Vol] 0.55 10*3/uL High <0.46 [facility] Comment on above: Order Comment: Speci men Type: BLOOD SPECIMENOrdering Facility: [facility] Address: [address] [place] [address] Performed By: #### B MP #### [place] [id number] Eosinophils/100 WBC (Bld) 8.2 % Normal [facility] Comment on above: Order Comment: Speci men Type: BLOOD SPECIMENOrdering Facility: [facility] Address: [address] [place] [address] Performed By: #### B MP #### [place] [phone] Erythrocyte distribution width (RBC) [Ratio] 12.8 % Normal 11.5-15.0 [facility] Comment on above: Order Comment: Speci men Type: BLOOD SPECIMENOrdering Facility: [facility] Address: [address] [place] [address] Performed By: #### B MP #### [place] [phone] Hematocrit (Bld) [Volume fraction] 31.1 % Low 36.0-46.0 [facility] Comment on above: Order Comment: Speci men Type: BLOOD SPECIMENOrdering Facility: [facility] Address: [address] [place] [address] Performed By: #### B MP #### [place] [phone] Hemoglobin (Bld) [Mass/Vol] 10.5 g/dL Low 11.5-15.5 [facility] Comment on above: Order Comment: Speci men Type: BLOOD SPECIMENOrdering Facility: [facility] Address: [address] [place] [address] Performed By: #### B MP #### [address] IMMATURE GRAN % 0.4 % Normal [facility] Comment on above: Order Comment: Speci men Type: BLOOD SPECIMENOrdering Facility: [facility] Address: [address] [place] [address] Performed By: #### B MP #### [place] [phone] IMMATURE GRAN ABS 0.03 k/uL Normal <0.10 [facility] Comment on above: Order Comment: Speci men Type: BLOOD SPECIMENOrdering Facility: [facility] Address: [address] [place] [address] Performed By: #### B MP #### [place] [id number] Lymphocytes (Bld) [#/Vol] 1.47 10*3/uL Normal 1.00-4.00 [facility] Comment on above: Order Comment: Speci men Type: BLOOD SPECIMENOrdering Facility: [facility] Address: [address] [place], [place] [address] Performed By: #### B MP #### [phone] Lymphocytes/100 WBC (Bld) 22.0 % Normal [facility] Comment on above: Order Comment: Speci men Type: BLOOD SPECIMENOrdering Facility: [facility] Address: [address] [place] [address] Performed By: #### B MP #### [place] [phone] MCH (RBC) [Entitic mass] 29.9 pg Normal 26.0-34.0 [facility] Comment on above: Order Comment: Speci men Type: BLOOD SPECIMENOrdering Facility: [facility] Address: [address] [place] [address] Performed By: #### B MP #### [phone] MCHC (RBC) [Mass/Vol] 33.8 g/dL Normal 30.5-36.0 [facility] Comment on above: Order Comment: Speci men Type: BLOOD SPECIMENOrdering Facility: [facility] Address: [address] [place] [address] Performed By: #### B MP #### [place] [phone] MCV (RBC) [Entitic vol] 88.6 fL Normal 80.0-100.0 [facility] Comment on above: Order Comment: Speci men Type: BLOOD SPECIMENOrdering Facility: [facility] Address: [address] [place] [address] Performed By: #### B MP #### [place] [phone] Monocytes (Bld) [#/Vol] 0.50 10*3/uL Normal <0.87 [facility] Comment on above: Order Comment: Speci men Type: BLOOD SPECIMENOrdering Facility: [facility] Address: [address] [place] [address] Performed By: #### B MP #### [place] [phone] Monocytes/100 WBC (Bld) 7.5 % Normal [facility] Comment on above: Order Comment: Speci men Type: BLOOD SPECIMENOrdering Facility: [facility] Address: [address] [place] [address] Performed By: #### B MP #### [place] [phone] Neutrophils (Bld) [#/Vol] 4.08 10*3/uL Normal 1.45-7.50 [facility] Comment on above: Order Comment: Speci men Type: BLOOD SPECIMENOrdering Facility: [facility] Address: [address] [place] [address] Performed By: #### B MP #### [place] [phone] Neutrophils/100 WBC (Bld) 61.2 % Normal [facility] Comment on above: Order Comment: Speci men Type: BLOOD SPECIMENOrdering Facility: [facility] Address: [address] [place] [address] Performed By: #### B MP #### [place] [phone] Nucleated RBC (Bld) [#/Vol] 10*3/uL Normal <0.01 [facility] Comment on above: Order Comment: Speci men Type: BLOOD SPECIMENOrdering Facility: [facility] Address: [address] [place] [address] Performed By: #### B MP #### [phone] Nucleated RBC/100 WBC (Bld) [Ratio] 0.0 /100 WBC Normal [facility] Comment on above: Order Comment: Speci men Type: BLOOD SPECIMENOrdering Facility: [facility] Address: [address] [place] [address] Performed By: #### B MP #### [place] [phone] Platelet mean volume (Bld) [Entitic vol] 8.9 fL Low 9.0-12.7 [facility] Comment on above: Order Comment: Speci men Type: BLOOD SPECIMENOrdering Facility: [facility] Address: [address] [place] [address] Performed By: #### B MP #### [place] [address] Platelets (Bld) [#/Vol] 455 10*3/uL High 150-400 [facility] Comment on above: Order Comment: Speci men Type: BLOOD SPECIMENOrdering Facility: [facility] Address: [address] [place] [address] Performed By: #### B MP #### [place] [address] RBC (Bld) [#/Vol] 3.51 10*6/uL Low 3.90-5.20 [facility] Comment on above: Order Comment: Speci men Type: BLOOD SPECIMENOrdering Facility: [facility] Address: [address] [place] [address] Performed By: #### B MP #### [place] [phone] WBC (Bld) [#/Vol] 6.68 10*3/uL Normal 3.70-11.00 [facility] Comment on above: Order Comment: Speci men Type: BLOOD SPECIMENOrdering Facility: [facility] Address: [address] [place] [address] Performed By: #### B MP #### [place] [address] CNDSon 04-05-2022 CNDS HNO ID: [id number] Author: Jessi Sheets APRN.GRAPHIC SPECIALIST Service: Colorectal Author Type: Nurse Practitioner Type: [...] of the summary. CONSULTING TEAMS DURING HOSPITALIZATION: [facility] Treatment Team: Attending Provider: Mary Obrien [...] only. Pain controlled with TAPs and a MANAGER OPERATING. Remained nauseated. POD4 re-advanced to full liquids [...] by mo (more content not included)... Normal [facility] Magnesium SerPl-mCncon 04-05 Magnesium [Mass/Vol] 2.0 mg/dL Normal 1.7-2.3 [facility] Comment on above: Order Comment: Speci men Type: BLOOD SPECIMEN Ordering Facility: [facility] Address: [address] [place] [address] Performed By: #### 5 8410-2 #### [facility] [place] [id number] [address] [place] [address] NURSING PROGon 04-05-2022 NURSING PROG HNO ID: [id number] Author: Liliana Mayer RN Service: ? 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 This note was completed by: Liliana Mayer [facility] NURSING PROG HNO ID: [id number] Author: Liliana Mayer RN Service: ? Author [...] This note was completed by: Liliana Mayer [facility] NURSING PROG HNO ID: [id number] Author: Eagle Gu RN Service: ? Author Type: Registered Nurse Type: Nursing Progress Note Filed: 04/04/2022 10:58 PM Note Text: Nursing Progress Note Patient Name: Mary Leal Patient Location: / Daily Note:04/04/22 2140 Pt is alert and oriented x3. Pt mabulating independently. Surgical sites intact. Pt refusing IVF, pt states she drinks enough water. This note was completed by: Eagle Gu [facility] NUTRITIONon 04-05-2022 NUTRITION HNO ID: [id number] Author: Merced Morales DTR Service: Nutrition Therapy Author Type: English Composition Teacher Type: Nutrition Filed: 04/05/2022 10:42 AM Note Text: NUTRITION THERAPY CAD TECHNICIAN NOTE SERVICE DATE: 04/05/2022 SERVICE TIME: 9:45 [...] April 05, 2022 TIME: 9:54 AM Normal [facility] Phosphate SerPl-mCncon 04-05 Phosphate [Mass/Vol] 4.6 mg/dL Normal 2.7-4.8 [facility] Comment on above: Order Comment: Speci men Type: BLOOD SPECIMEN Ordering Facility: [facility] Address: [address] [place] [address] Performed By: #### 5 8410-2 #### [facility] CLIA [id number] [address] [place] [address] [place] Basic metabolic 2000 panelon 04-04-2022 Anion gap [Moles/Vol] 10 mmol/L Normal 9-18 [facility] Comment on above: Order Comment: Speci men Type: BLOOD SPECIMENOrdering Facility: [facility] Address: [address] [place] [address] Performed By: #### 2 4321-2, 93872-3, 2777-1 ####[facility]IA [id number] [place] [address] [place] Calcium [Mass/Vol] 8.9 mg/dL Normal 8.5-10.2 [facility] Comment on above: Order Comment: Speci men Type: BLOOD SPECIMENOrdering Facility: [facility] Address: [address] [place] [address] Performed By: #### 2 4321-2, , 2776-11 ####[facility]IA [id number] [place] [id number] [place] Chloride [Moles/Vol] 104 mmol/L Normal 97-105 [facility] Comment on above: Order Comment: Speci men Type: BLOOD SPECIMENOrdering Facility: [facility] Address: [address] [place] [address] Performed By: #### 2 4321-2, , 2776-11 ####[facility]IA [id number] [place] [address] [place] CO2 [Moles/Vol] 26 mmol/L Normal 22-30 [facility] Comment on above: Order Comment: Speci men Type: BLOOD SPECIMENOrdering Facility: [facility] Address: [address] [place] [address] Performed By: #### 2 4321-2, , 2776-11 ####[facility] [id number] [place] [id number] [place] Creatinine [Mass/Vol] 0.56 mg/dL Low 0.58-0.96 [facility] Comment on above: Order Comment: Speci men Type: BLOOD SPECIMENOrdering Facility: [facility] Address: [address] [place], [place] [address] Performed By: #### 2 4321-2, , 2776-11 ####[facility] [id number] [place] [id number] [place] ESTIMATED GLOMERULAR FILTRATION RATE 112 mL/min/1.73m??? Normal >=60 [facility] Comment on above: Order Comment: Speci men Type: BLOOD SPECIMENOrdering Facility: [facility] Address: [address] [place] [address] Result Comment: Mary mated Glomerular Filtration Rate [...] Performed By: #### 2 4321-2, , 2776-11 ####[facility]ORYCLIA [id number] [place] [id number] [place] Glucose [Mass/Vol] 112 mg/dL High 74-99 [facility] Comment on above: Order Comment: Leanne terry Type: BLOOD SPECIMENOrdering Facility: [facility] Address: [address] [place] [address] Result Comment: The Stateless Diabetes Association (ADA) provides guidance for cutoff [...] Standards of Medical Care in Diabetes 2016, Stateless Diabetes Association. Diabetes Care. 2016.39(Suppl 1). Performed By: #### 2 4321-2, , 2776-11 ####[facility]ORYCLIA [id number] [place] [id number] [place] Potassium [Moles/Vol] 3.9 mmol/L Normal 3.7-5.1 [facility] Comment on above: Order Comment: Leanne terry Type: BLOOD SPECIMENOrdering Facility: [facility] Address: [address] [place] [address] Performed By: #### 2 4321-2, , 2776-11 ####[facility] [id number] [place] [id number] [place] Sodium [Moles/Vol] 140 mmol/L Normal 136-144 [facility] Comment on above: Order Comment: Speci men Type: BLOOD SPECIMENOrdering Facility: [facility] Address: [address] [place] [address] Performed By: #### 2 4321-2, , 2776-11 ####[facility]ORY[facility]IA [id number] [place] [address] [place] Urea nitrogen [Mass/Vol] 3 mg/dL Low 7- [facility] Comment on above: Order Comment: Speci men Type: BLOOD SPECIMENOrdering Facility: [facility] Address: [address] [place] [address] Performed By: #### 2 4321-2, , 2776-11 ####[facility]IA [id number] [place] [address] [place] CBC W Auto Differential pane l (Bld)on 04-04-2022 Basophils (Bld) [#/Vol] 0.03 10*3/uL Normal <0.11 [facility] Comment on above: Order Comment: Speci men Type: BLOOD SPECIMEN Ordering Facility: [facility] Address: [address] [place] [address] Performed By: #### 5 7021-8 #### [facility] CLIA [id number] [address] [place] [address] [place] Basophils/100 WBC (Bld) 0.5 % Normal [facility] Comment on above: Order Comment: Speci men Type: BLOOD SPECIMEN Ordering Facility: [facility] Address: [address] [place] [address] Performed By: #### 5 7021-8 #### [facility] CLIA [id number] [address] [place] [address] [place] Differential cell count method Nom (Bld) Auto Normal [facility] Comment on above: Order Comment: Speci men Type: BLOOD SPECIMEN Ordering Facility: [facility] Address: [address] [place] [address] Performed By: #### 5 7021-8 #### [facility] CLIA [id number] [address] [place] [address] [place] Eosinophils (Bld) [#/Vol] 0.48 10*3/uL High <0.46 [facility] Comment on above: Order Comment: Speci men Type: BLOOD SPECIMEN Ordering Facility: [facility] Address: [address] [place] [address] Performed By: #### 5 7021-8 #### [facility] CLIA [id number] [address] [place] [address] [place] Eosinophils/100 WBC (Bld) 7.7 % Normal [facility] Comment on above: Order Comment: Speci men Type: BLOOD SPECIMEN Ordering Facility: [facility] Address: [address] [place] [address] Performed By: #### 5 7021-8 #### [facility] CLIA [id number] [address] [place] [address] [place] Erythrocyte distribution width (RBC) [Ratio] 12.7 % Normal 11.5-15.0 [facility] Comment on above: Order Comment: Speci men Type: BLOOD SPECIMEN Ordering Facility: [facility] Address: [address] [place] [address] Performed By: #### 5 7021-8 #### [facility] CLIA [id number] [address] [place] [address] [place] Hematocrit (Bld) [Volume fraction] 31.2 % Low 36.0-46.0 [facility] Comment on above: Order Comment: Speci men Type: BLOOD SPECIMEN Ordering Facility: [facility] Address: [address] [place] [address] Performed By: #### 5 7021-8 #### [facility] CLIA [id number] [address] [place] [address] [place] Hemoglobin (Bld) [Mass/Vol] 10.7 g/dL Low 11.5-15.5 [facility] Comment on above: Order Comment: Speci men Type: BLOOD SPECIMEN Ordering Facility: [facility] Address: [address] [place] [address] Performed By: #### 5 7021-8 #### [facility] CLIA [id number] [address] [place] [address] [place] IMMATURE GRAN % 0.5 % Normal [facility] Comment on above: Order Comment: Speci men Type: BLOOD SPECIMEN Ordering Facility: [facility] Address: [address] [place] [address] Performed By: #### 5 7021-8 #### [facility] CLIA [id number] [address] [place] [address] [place] IMMATURE GRAN ABS 0.03 k/uL Normal <0.10 [facility] Comment on above: Order Comment: Speci men Type: BLOOD SPECIMEN Ordering Facility: [facility] Address: [address] [place] [address] Performed By: #### 5 7021-8 #### [facility] CLIA [id number] [address] [place] [address] [place] Lymphocytes (Bld) [#/Vol] 1.13 10*3/uL Normal 1.00-4.00 [facility] Comment on above: Order Comment: Speci men Type: BLOOD SPECIMEN Ordering Facility: [facility] Address: [address] [place] [address] Performed By: #### 5 7021-8 #### [facility] CLIA [id number] [address] [place] [address] [place] Lymphocytes/100 WBC (Bld) 18.2 % Normal [facility] Comment on above: Order Comment: Speci men Type: BLOOD SPECIMEN Ordering Facility: [facility] Address: [address] [place] [address] Performed By: #### 5 7021-8 #### [facility] CLIA [id number] [address] [place] [address] MCH (RBC) [Entitic mass] 29.9 pg Normal 26.0-34.0 [facility] Comment on above: Order Comment: Speci men Type: BLOOD SPECIMEN Ordering Facility: [facility] Address: [address] [place] [address] Performed By: #### 5 7021-8 #### [facility] CLIA [id number] [address] [place] [address] [place] MCHC (RBC) [Mass/Vol] 34.3 g/dL Normal 30.5-36.0 [facility] Comment on above: Order Comment: Speci men Type: BLOOD SPECIMEN Ordering Facility: [facility] Address: [address] [place] [address] Performed By: #### 5 7021-8 #### [facility] CLIA [id number] [address] [place] [address] [place] MCV (RBC) [Entitic vol] 87.2 fL Normal 80.0-100.0 [facility] Comment on above: Order Comment: Speci men Type: BLOOD SPECIMEN Ordering Facility: [facility] Address: [address] [place] [address] Performed By: #### 5 7021-8 #### [facility] CLIA [id number] [address] [place] [address] [place] Monocytes (Bld) [#/Vol] 0.36 10*3/uL Normal <0.87 [facility] Comment on above: Order Comment: Speci men Type: BLOOD SPECIMEN Ordering Facility: [facility] Address: [address] [place] [address] Performed By: #### 5 7021-8 #### [facility] CLIA [id number] [address] [place] [address] Monocytes/100 WBC (Bld) 5.8 % Normal [facility] Comment on above: Order Comment: Speci men Type: BLOOD SPECIMEN Ordering Facility: [facility] Address: [address] [place] [address] Performed By: #### 5 7021-8 #### [facility] CLIA [id number] [address] [place] [address] [place] Neutrophils (Bld) [#/Vol] 4.18 10*3/uL Normal 1.45-7.50 [facility] Comment on above: Order Comment: Speci men Type: BLOOD SPECIMEN Ordering Facility: [facility] Address: [address] [place] [address] Performed By: #### 5 7021-8 #### [facility] CLIA [id number] [address] [place] [address] [place] Neutrophils/100 WBC (Bld) 67.3 % Normal [facility] Comment on above: Order Comment: Speci men Type: BLOOD SPECIMEN Ordering Facility: [facility] Address: [address] [place] [address] Performed By: #### 5 7021-8 #### [facility] CLIA [id number] [address] [place] [address] [place] Nucleated RBC (Bld) [#/Vol] 10*3/uL Normal <0.01 [facility] Comment on above: Order Comment: Speci men Type: BLOOD SPECIMEN Ordering Facility: [facility] Address: [address] [place] [address] Performed By: #### 5 7021-8 #### [facility] CLIA [id number] [address] [place] [address] [place] Nucleated RBC/100 WBC (Bld) [Ratio] 0.0 /100 WBC Normal [facility] Comment on above: Order Comment: Speci men Type: BLOOD SPECIMEN Ordering Facility: [facility] Address: [address] [place] [address] Performed By: #### 5 7021-8 #### [facility] CLIA [id number] [address] [place] [address] [place] Platelet mean volume (Bld) [Entitic vol] 8.7 fL Low 9.0-12.7 [facility] Comment on above: Order Comment: Speci men Type: BLOOD SPECIMEN Ordering Facility: [facility] Address: [address] [place] [address] Performed By: #### 5 7021-8 #### [facility] CLIA [id number] [address] [place] [address] [place] Platelets (Bld) [#/Vol] 436 10*3/uL High 150-400 [facility] Comment on above: Order Comment: Speci men Type: BLOOD SPECIMEN Ordering Facility: [facility] Address: [address] [place] [address] Performed By: #### 5 7021-8 #### [facility] CLIA [id number] [address] [place] [address] [place] RBC (Bld) [#/Vol] 3.58 10*6/uL Low 3.90-5.20 [facility] Comment on above: Order Comment: Speci men Type: BLOOD SPECIMEN Ordering Facility: [facility] Address: [address] [place] [address] Performed By: #### 5 7021-8 #### [facility] CLIA [id number] [address] [place] [address] [place] WBC (Bld) [#/Vol] 6.21 10*3/uL Normal 3.70-11.00 [facility] Comment on above: Order Comment: Speci men Type: BLOOD SPECIMEN Ordering Facility: [facility] Address: [address] [place] [address] Performed By: #### 5 7021-8 #### [facility] CLIA [id number] [address] [place] [address] [place] Magnesium SerPl-mCncon 04-04 Magnesium [Mass/Vol] 2.1 mg/dL Normal 1.7-2.3 [facility] Comment on above: Order Comment: Speci men Type: BLOOD SPECIMENOrdering Facility: [facility] Address: [address] [place] [address] Performed By: #### 2 4321-2, 45873-1, 2777-1 ####[facility]CLIA [id number] [address] OF [facility] NURSING PROGon 04-04-2022 NURSING PROG HNO ID: [id number] Author: Dipti [place] RN Service: Nursing Author Type: Registered Nurse Type: Nursing Progress Note Filed: 04/04/2022 7:47 PM Note Text: Nursing Progress Note Patient Name: Mary Leal Patient Location: [address]/IH3G-47 Daily Note:Patient refusing further IVF. This note was completed by: [facility] NURSING PROG HNO ID: [id number] Author: Dipti [place] RN Service: Nursing Author Type: Registered Nurse Type: Nursing Progress Note Filed: 04/04/2022 11:11 AM Note Text: Nursing Progress Note Patient Name: Mary Leal Patient Location: [address]/JF1J-87 Daily Note: Patient up in chair and up ambulating in hallway with steady gait. VSS. RA POx. IVF as ordered. 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 Dressing to old ostomy site CDI. Abdomen soft and tender. Patient states, feeling much better . Diet advanced, yet patient did not take in 25% of tray. Patient informed RN that I am leaving today. Do what you gotta do. I can do all of this at home . Dr Lamas paged and notified, but post call. 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 Will continue to monitor. Call light in reach. This note was completed by: Dipti [facility] Phosphate SerPl-mCncon 04-04 Phosphate [Mass/Vol] 3.2 mg/dL Normal 2.7-4.8 [facility] Comment on above: Order Comment: Leanne terry Type: BLOOD SPECIMENOrdering Facility: [facility] Address: [address] [place], [place] [address] Performed By: #### 2 4321-2, 13524-0, 2777-1 ####[facility]IA [id number] [address] ALLIED HEALTHon 04-03-2022 ALLIED HEALTH HNO ID: [id number] Author: MALAIKA Martinez Service: ? Author Type: Maintainer Central Office Type: Allied Health Filed: 04/03/2022 5:35 PM [...] Martinez April 03, 2022 5:35 PM Normal [facility] Basic metabolic 2000 panelon 04-03-2022 Anion gap [Moles/Vol] 10 mmol/L Normal 9-18 [facility] Comment on above: Order Comment: Leanne terry Type: BLOOD SPECIMENOrdering Facility: [facility] Address: [address] [place] [address] Performed By: #### B MP #### [facility] [address] [place] [id number] Calcium [Mass/Vol] 8.4 mg/dL Low 8.5-10.2 [facility] Comment on above: Order Comment: Speci men Type: BLOOD SPECIMENOrdering Facility: [facility] Address: [address] [place] [address] Performed By: #### B MP #### [place] [id number] Chloride [Moles/Vol] 103 mmol/L Normal 97-105 [facility] Comment on above: Order Comment: Speci men Type: BLOOD SPECIMENOrdering Facility: [facility] Address: [address] [place] [address] Performed By: #### B MP #### [place] [id number] CO2 [Moles/Vol] 25 mmol/L Normal 22-30 [facility] Comment on above: Order Comment: Speci men Type: BLOOD SPECIMENOrdering Facility: [facility] Address: [address] [place] [address] Performed By: #### B MP #### [place] [id number] Creatinine [Mass/Vol] 0.60 mg/dL Normal 0.58-0.96 [facility] Comment on above: Order Comment: Speci men Type: BLOOD SPECIMENOrdering Facility: [facility] Address: [address] [place] [address] Performed By: #### B MP #### [address] ESTIMATED GLOMERULAR FILTRATION RATE 110 mL/min/1.73m??? Normal >=60 [facility] Comment on above: Order Comment: Speci men Type: BLOOD SPECIMENOrdering Facility: [facility] Address: [address] [place] [address] Result Comment: Mary mated Glomerular Filtration Rate [...] GFR. Performed By: #### B MP #### [place] [phone] Glucose [Mass/Vol] 106 mg/dL High 74-99 [facility] Comment on above: Order Comment: Speci men Type: BLOOD SPECIMENOrdering Facility: [facility] Address: [address] [place] [address] Result Comment: The Stateless Diabetes Association (ADA) provides guidance for cutoff [...] Standards of Medical Care in Diabetes 2016, Stateless Diabetes Association. Diabetes Care. 2016.39(Suppl 1). Performed By: #### B MP #### [place] [address] Potassium [Moles/Vol] 3.3 mmol/L Low 3.7-5.1 [facility] Comment on above: Order Comment: Speci men Type: BLOOD SPECIMENOrdering Facility: [facility] Address: [address] [place] [address] Performed By: #### B MP #### [place] [phone] Sodium [Moles/Vol] 138 mmol/L Normal 136-144 [facility] Comment on above: Order Comment: Speci men Type: BLOOD SPECIMENOrdering Facility: [facility] Address: [address] [place] [address] Performed By: #### B MP #### [place] [phone] Urea nitrogen [Mass/Vol] 4 mg/dL Low 7-21 [facility] Comment on above: Order Comment: Speci men Type: BLOOD SPECIMENOrdering Facility: [facility] Address: [address] [place] [address] Performed By: #### B MP #### [place] [phone] CBC W Auto Differential pane l (Bld)on 04-03-2022 Basophils (Bld) [#/Vol] 0.03 10*3/uL Normal <0.11 [facility] Comment on above: Order Comment: Speci men Type: BLOOD SPECIMENOrdering Facility: [facility] Address: [address] [place] [address] Performed By: #### B MP #### [place] [phone] Basophils/100 WBC (Bld) 0.4 % Normal [facility] Comment on above: Order Comment: Speci men Type: BLOOD SPECIMENOrdering Facility: [facility] Address: [address] [place] [address] Performed By: #### B MP #### [phone] Differential cell count method Nom (Bld) Auto Normal [facility] Comment on above: Order Comment: Speci men Type: BLOOD SPECIMENOrdering Facility: [facility] Address: [address] [place] [address] Performed By: #### B MP #### [place] [id number] Eosinophils (Bld) [#/Vol] 0.48 10*3/uL High <0.46 [facility] Comment on above: Order Comment: Speci men Type: BLOOD SPECIMENOrdering Facility: [facility] Address: [address] [place] [address] Performed By: #### B MP #### [id number] Eosinophils/100 WBC (Bld) 6.5 % Normal [facility] Comment on above: Order Comment: Speci men Type: BLOOD SPECIMENOrdering Facility: [facility] Address: [address] [place] [address] Performed By: #### B MP #### [place] [address] Erythrocyte distribution width (RBC) [Ratio] 12.5 % Normal 11.5-15.0 [facility] Comment on above: Order Comment: Speci men Type: BLOOD SPECIMENOrdering Facility: [facility] Address: [address] [place] [address] Performed By: #### B MP #### [place] [address] Hematocrit (Bld) [Volume fraction] 29.5 % Low 36.0-46.0 [facility] Comment on above: Order Comment: Speci men Type: BLOOD SPECIMENOrdering Facility: [facility] Address: [address] [place] [address] Performed By: #### B MP #### [place] [address] Hemoglobin (Bld) [Mass/Vol] 10.2 g/dL Low 11.5-15.5 [facility] Comment on above: Order Comment: Speci men Type: BLOOD SPECIMENOrdering Facility: [facility] Address: [address] [place] [address] Performed By: #### B MP #### [place] [address] IMMATURE GRAN % 0.5 % Normal [facility] Comment on above: Order Comment: Speci men Type: BLOOD SPECIMENOrdering Facility: [facility] Address: [address] [place] [address] Performed By: #### B MP #### [place] [id number] IMMATURE GRAN ABS 0.04 k/uL Normal <0.10 [facility] Comment on above: Order Comment: Speci men Type: BLOOD SPECIMENOrdering Facility: [facility] Address: [address] [place] [address] Performed By: #### B MP #### [phone] Lymphocytes (Bld) [#/Vol] 1.11 10*3/uL Normal 1.00-4.00 [facility] Comment on above: Order Comment: Speci men Type: BLOOD SPECIMENOrdering Facility: [facility] Address: [address] [place] [address] Performed By: #### B MP #### [place] [phone] Lymphocytes/100 WBC (Bld) 15.0 % Normal [facility] Comment on above: Order Comment: Speci men Type: BLOOD SPECIMENOrdering Facility: [facility] Address: [address] [place] [address] Performed By: #### B MP #### [phone] MCH (RBC) [Entitic mass] 30.1 pg Normal 26.0-34.0 [facility] Comment on above: Order Comment: Speci men Type: BLOOD SPECIMENOrdering Facility: [facility] Address: [address] [place] [address] Performed By: #### B MP #### [place] [phone] MCHC (RBC) [Mass/Vol] 34.6 g/dL Normal 30.5-36.0 [facility] Comment on above: Order Comment: Speci men Type: BLOOD SPECIMENOrdering Facility: [facility] Address: [address] [place] [address] Performed By: #### B MP #### [place] [phone] MCV (RBC) [Entitic vol] 87.0 fL Normal 80.0-100.0 [facility] Comment on above: Order Comment: Speci men Type: BLOOD SPECIMENOrdering Facility: [facility] Address: [address] [place] [address] Performed By: #### B MP #### [place] [address] Monocytes (Bld) [#/Vol] 0.46 10*3/uL Normal <0.87 [facility] Comment on above: Order Comment: Speci men Type: BLOOD SPECIMENOrdering Facility: [facility] Address: [address] [place] [address] Performed By: #### B MP #### [place] [address] Monocytes/100 WBC (Bld) 6.2 % Normal [facility] Comment on above: Order Comment: Speci men Type: BLOOD SPECIMENOrdering Facility: [facility] Address: [address] [place] [address] Performed By: #### B MP #### [place] [phone] Neutrophils (Bld) [#/Vol] 5.27 10*3/uL Normal 1.45-7.50 [facility] Comment on above: Order Comment: Speci men Type: BLOOD SPECIMENOrdering Facility: [facility] Address: [address] [place] [address] Performed By: #### B MP #### [phone] Neutrophils/100 WBC (Bld) 71.4 % Normal [facility] Comment on above: Order Comment: Speci men Type: BLOOD SPECIMENOrdering Facility: [facility] Address: [address] [place] [address] Performed By: #### B MP #### [phone] Nucleated RBC (Bld) [#/Vol] 10*3/uL Normal <0.01 [facility] Comment on above: Order Comment: Speci men Type: BLOOD SPECIMENOrdering Facility: [facility] Address: [address] [place] [address] Performed By: #### B MP #### [place] [phone] Nucleated RBC/100 WBC (Bld) [Ratio] 0.0 /100 WBC Normal [facility] Comment on above: Order Comment: Speci men Type: BLOOD SPECIMENOrdering Facility: [facility] Address: [address] [place], [place] [id number] Performed By: #### B MP #### [place] [address] Platelet mean volume (Bld) [Entitic vol] 8.6 fL Low 9.0-12.7 [facility] Comment on above: Order Comment: Speci men Type: BLOOD SPECIMENOrdering Facility: [facility] Address: [address] [place] [address] Performed By: #### B MP #### [place] [address] Platelets (Bld) [#/Vol] 342 10*3/uL Normal 150-400 [facility] Comment on above: Order Comment: Speci men Type: BLOOD SPECIMENOrdering Facility: [facility] Address: [address] [place], [place] [id number] Performed By: #### B MP #### [place] [phone] RBC (Bld) [#/Vol] 3.39 10*6/uL Low 3.90-5.20 [facility] Comment on above: Order Comment: Speci men Type: BLOOD SPECIMENOrdering Facility: [facility] Address: [address] [place] [address] Performed By: #### B MP #### [place] [phone] WBC (Bld) [#/Vol] 7.39 10*3/uL Normal 3.70-11.00 [facility] Comment on above: Order Comment: Speci men Type: BLOOD SPECIMENOrdering Facility: [facility] Address: [address] [place] [address] Performed By: #### B MP #### [place] [address] CONSULT PROGon 04-03-2022 CONSULT PROG HNO ID: [id number] Author: Sarwat Huddleston PA-C Service: Pain Management Author Type: Physician Blocking Machine Operator Type: Consult Progress Note Filed: 04/03/2022 [...] appears comf (more content not included)... Normal [facility] CT ABD/PEL W IVCONon 022 CT [...] Lower thorax: Visualized lung bases are clear. Pulp Plant Supervisor (topogram) images: No additional findings. IMPRESSION: Postsurgical [...] collection is present in the lower pelvis Grapple Crew Leader: [facility] Transcribe Date/Time: Apr 03 2022 9:00P Dictated by : SHELBY ESPINOSA MD This examination was interpreted and the report reviewed and electronically signed by: SHELBY ESPINOSA MD on Apr 03 2022 9:12PM EST [id number] Normal [facility] Magnesium SerPl-mCncon 04-03 Magnesium [Mass/Vol] 1.6 mg/dL Low 1.7-2.3 [facility] Comment on above: Order Comment: Speci men Type: BLOOD SPECIMENOrdering Facility: [facility] Address: [address] [place], [place] [id number] Performed By: #### B #### [place] [address] NURSING PROGon 04-03-2022 NURSING PROG HNO ID: [id number] Author: Beto Ford RN Service: ? Author Type: Registered Nurse Type: Nursing Progress Note Filed: 04/03/2022 9:39 PM Note Text: Nursing Progress Note Patient Name: Mary Leal Patient Location: / Daily Note: 2129: Pt declined to have all oral medications. They just go right through me. I cannot take them. . Made RN aware. This note was completed by: Beto Ford [facility] NURSING PROG HNO ID: [id number] Author: Dipti Crowley RN Service: Nursing Author [...] with no success. SR paged with events ([phone]). Awaiting further orders. This note was completed by: Dipti Crowley [facility] NURSING PROG HNO ID: [id number] Author: Dipti Crowley RN Service: Nursing Author [...] This note was completed by: Dipti Crowley [facility] NURSING PROG HNO ID: [id number] Author: Chava Remy RN Service: PICC Team [...] 03, 2022 TIME: 8:37 AM PAGER/CONTACT #: [facility] NURSING PROG HNO ID: [id number] Author: Kev Leone RN Service: ? Author Type: Registered Nurse Type: Nursing Progress Note Filed: 04/03/2022 3:50 AM Note Text: Nursing Progress Note Patient Name: Mary Leal Patient Location: [place] [address] Daily Note: 2100: Pt refusing all PO meds at this time, states she's concerned that she's not digesting them properly. Paan currently being controlled with bilateral blocks and PRN IV pain medication. This note was completed by: Kev Leone [facility] Phosphate SerPl-mCncon 04-03 Phosphate [Mass/Vol] 3.3 mg/dL Normal 2.7-4.8 [facility] Comment on above: Order Comment: Speci men Type: BLOOD SPECIMENOrdering Facility: [facility] Address: [facility] [place] [address] Performed By: #### B MP #### [facility] [address] [place] [address] ALLIED HEALTHon 04-02-2022 ALLIED HEALTH HNO ID: [id number] Author: RT Ban(Asiya) Service: Radiology Author Type: [...] RT Ban(R) April 02, 2022 9:12 AM [facility] CONSULT PROGon 04-02-2022 CONSULT PROG HNO ID: [id number] Author: Sarwat Huddleston PA-C Service: Pain Management Author Type: Physician Blocking Machine Operator Type: Consult Progress Note Filed: 04/02/2022 [...] Hematocrit 29.3 5 (more content not included)... [facility] NURSING PROGon 04-02-2022 NURSING PROG HNO ID: [id number] Author: Dipti Crowley RN Service: Nursing Author Type: Registered Nurse Type: Nursing Progress Note Filed: 04/02/2022 1:23 PM Note Text: Nursing Progress Note Patient Name: Mary Leal Patient Location: [place] [address]/[address]-[address] Daily Note: Patient AANDOx3. VSS. RA POx. D51/2NS at 75 ml/hr. B/L Tap Block dressings CDI. Old ostomy with ABD and tape, CDI. 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 NPO status. Medicated with IV [...] This note was completed by: Dipti Crowley [facility] XR ABDOMEN 1V SUPINEon 04-02 XR [...] may be of help for further evaluation. Grapple Crew Leader: [facility] Transcribe Date/Time: Apr 02 2022 9:16A Dictated by : JOAQUIN BRYANT MD This examination was interpreted and the report reviewed and electronically signed by: JOAQUIN BRYANT MD on Apr 02 2022 9:19AM EST [id number] Normal [facility] Basic metabolic 2000 panelon 04-01-2022 Anion gap [Moles/Vol] 9 mmol/L Normal 9-18 [facility] Comment on above: Order Comment: Speci men Type: BLOOD SPECIMENOrdering Facility: [facility] Address: [address] [place] [address] Performed By: #### B MP #### [place] [phone] Calcium [Mass/Vol] 7.9 mg/dL Low 8.5-10.2 [facility] Comment on above: Order Comment: Speci men Type: BLOOD SPECIMENOrdering Facility: [facility] Address: [address] [place] [address] Performed By: #### B MP #### [place] [phone] Chloride [Moles/Vol] 106 mmol/L High 97-105 [facility] Comment on above: Order Comment: Speci men Type: BLOOD SPECIMENOrdering Facility: [facility] Address: [address] [place] [address] Performed By: #### B MP #### [place] [phone] CO2 [Moles/Vol] 26 mmol/L Normal 22-30 [facility] Comment on above: Order Comment: Speci men Type: BLOOD SPECIMENOrdering Facility: [facility] Address: [address] [place] [address] Performed By: #### B MP #### [phone] Creatinine [Mass/Vol] 0.68 mg/dL Normal 0.58-0.96 [facility] Comment on above: Order Comment: Speci men Type: BLOOD SPECIMENOrdering Facility: [facility] Address: [address] [place] [address] Performed By: #### B MP #### [place] [phone] ESTIMATED GLOMERULAR FILTRATION RATE 107 mL/min/1.73m??? Normal >=60 [facility] Comment on above: Order Comment: Speci men Type: BLOOD SPECIMENOrdering Facility: [facility] Address: [address] [place] [address] Result Comment: Mary mated Glomerular Filtration Rate [...] GFR. Performed By: #### B MP #### [place] [phone] Glucose [Mass/Vol] 99 mg/dL Normal 74-99 [facility] Comment on above: Order Comment: Speci men Type: BLOOD SPECIMENOrdering Facility: [facility] Address: [address] [place] [address] Result Comment: The Stateless Diabetes Association (ADA) provides guidance for cutoff [...] Standards of Medical Care in Diabetes 2016, Stateless Diabetes Association. Diabetes Care. 2016.39(Suppl 1). Performed By: #### B MP #### [place] [phone] Potassium [Moles/Vol] 3.7 mmol/L Normal 3.7-5.1 [facility] Comment on above: Order Comment: Leanne terry Type: BLOOD SPECIMENOrdering Facility: [facility] Address: [address] [place] [address] Performed By: #### B MP #### [place] [phone] Sodium [Moles/Vol] 141 mmol/L Normal 136-144 [facility] Comment on above: Order Comment: Leanne terry Type: BLOOD SPECIMENOrdering Facility: [facility] Address: [address] [place] [address] Performed By: #### B MP #### [place] [phone] Urea nitrogen [Mass/Vol] 4 mg/dL Low 7-21 [facility] Comment on above: Order Comment: Leanne terry Type: BLOOD SPECIMENOrdering Facility: [facility] Address: [address] [place] [address] Performed By: #### B MP #### [place] [phone] CBC panel Auto (Bld)on 04-01 Erythrocyte distribution width (RBC) [Ratio] 12.4 % Normal 11.5-15.0 [facility] Comment on above: Order Comment: Leanne terry Type: BLOOD SPECIMEN Ordering Facility: [facility] Address: [address] [place], [place] [id number] Performed By: #### 5 8410-2 #### [facility] CLIA [id number] [address] [place] [address] [place] Hematocrit (Bld) [Volume fraction] 29.3 % Low 36.0-46.0 [facility] Comment on above: Order Comment: Speci men Type: BLOOD SPECIMEN [facility]ing [facility]: [facility] Address: [address] [place] [address] Performed By: #### 5 8410-2 #### [facility] CLIA [id number] [address] [place] [address] [place] Hemoglobin (Bld) [Mass/Vol] 9.6 g/dL Low 11.5-15.5 [facility] Comment on above: Order Comment: Speci men Type: BLOOD SPECIMEN [facility]ing [facility]: [facility] Address: [address] [place] [address] Performed By: #### 5 8410-2 #### [facility] CLIA [id number] [address] [place] [address] [place] MCH (RBC) [Entitic mass] 29.4 pg Normal 26.0-34.0 [facility] Comment on above: Order Comment: Speci men Type: BLOOD SPECIMEN [facility]ing [facility]: [facility] Address: [address] [place] [address] Performed By: #### 5 8410-2 #### [facility] CLIA [id number] [address] [place] [address] [place] MCHC (RBC) [Mass/Vol] 32.8 g/dL Normal 30.5-36.0 [facility] Comment on above: Order Comment: Speci men Type: BLOOD SPECIMEN [facility]ing [facility]: [facility] Address: [address] [place] [address] Performed By: #### 5 8410-2 #### [facility] CLIA [id number] [address] [place] [address] [place] MCV (RBC) [Entitic vol] 89.9 fL Normal 80.0-100.0 [facility] Comment on above: Order Comment: Speci men Type: BLOOD SPECIMEN [facility]ing [facility] Address: [address] [place] [address] Performed By: #### 5 8410-2 #### [facility] CLIA [id number] [address] [place] [address] [place] Nucleated RBC (Bld) [#/Vol] 10*3/uL Normal <0.01 [facility] Comment on above: Order Comment: Speci men Type: BLOOD SPECIMEN [facility]ing [facility]: [facility] Address: [address] [place] [address] Performed By: #### 5 8410-2 #### [facility] CLIA [id number] [address] [place] [address] [place] Platelet mean volume (Bld) [Entitic vol] 8.9 fL Low 9.0-12.7 [facility] Comment on above: Order Comment: Speci men Type: BLOOD SPECIMEN [facility]ing Facility: [facility] Address: [address] [place] [address] Performed By: #### 5 8410-2 #### [facility] CLIA [id number] [address] [place] [address] [place] Platelets (Bld) [#/Vol] 282 10*3/uL Normal 150-400 [facility] Comment on above: Order Comment: Speci men Type: BLOOD SPECIMEN [facility]ing [facility]: [facility] Address: [address] [place] [address] Performed By: #### 5 8410-2 #### [facility] CLIA [id number] [address] [place] [address] [place] RBC (Bld) [#/Vol] 3.26 10*6/uL Low 3.90-5.20 [facility] Comment on above: Order Comment: Speci men Type: BLOOD SPECIMEN [facility]ing Facility: [facility] Address: [address] [place] [address] Performed By: #### 5 8410-2 #### [facility] CLIA [id number] [address] [place] [address] [place] WBC (Bld) [#/Vol] 7.39 10*3/uL Normal 3.70-11.00 [facility] Comment on above: Order Comment: Speci men Type: BLOOD SPECIMEN Ordering Facility: [facility] Address: [address] [place] [address] Performed By: #### 5 8410-2 #### [facility] CLIA [id number] [address] [place] [id number] [place] CONSULT PROGon 04-01-2022 CONSULT PROG HNO ID: [id number] Author: Joslyn Jain APRN.GRAPHIC SPECIALIST Service: Pain Management Author Type: Nurse Practitioner [...] 0.67 Sod (more content not included)... Normal [facility] Magnesium SerPl-mCncon 04-01 Magnesium [Mass/Vol] 1.7 mg/dL Normal 1.7-2.3 [facility] Comment on above: Order Comment: Speci men Type: BLOOD SPECIMENOrdering Facility: [facility] Address: [address] [place] [address] Performed By: #### B MP #### [facility] [address] [place] [address] NURSING PROGon 04-01-2022 NURSING PROG HNO ID: [id number] Author: Eagle Gu RN Service: ? Author Type: Registered Nurse Type: Nursing Progress Note Filed: 04/01/2022 9:56 PM Note Text: Nursing Progress Note Patient Name: Mary Leal Patient Location: /NI2O-11 Daily Note:04/01/222038 Pt is alert and oriented x3. Surgical sites intact. Tap blocks x2 intact. Made SROC aware of Pt experiencing sharp/stabbing pain in abdomen, rating 9/10. SROC recommended use of PRN Dilaudid This note was completed by: Eagle Gu [facility] NURSING PROG HNO ID: [id number] Author: Eagle Gu RN Service: ? Author Type: Registered Nurse Type: Nursing Progress Note Filed: 04/01/2022 1:52 AM Note Text: Nursing Progress Note Patient Name: Mary Leal Patient Location: / Daily Note:03/31/222030 Pt is alert and oriented x3. Surgical sites intact. Nerve blocks x2 intact. This note was completed by: Eagle Gu [facility] Phosphate SerPl-mCncon 04-01 Phosphate [Mass/Vol] 2.8 mg/dL Normal 2.7-4.8 [facility] Comment on above: Order Comment: Speci men Type: BLOOD SPECIMENOrdering Facility: [facility] Address: [address] [place] [address] Performed By: #### B MP #### [place] [address] Basic metabolic 2000 panelon 03-31-2022 Anion gap [Moles/Vol] 10 mmol/L Normal 9-18 [facility] Comment on above: Order Comment: Speci men Type: BLOOD SPECIMEN [facility]ing Facility: [facility] Address: [address] [place] [address] Performed By: #### 5 8410-2 #### [facility] CLIA [id number] [address] [place] [address] [place] Calcium [Mass/Vol] 8.4 mg/dL Low 8.5-10.2 [facility] Comment on above: Order Comment: Speci men Type: BLOOD SPECIMEN Ordering Facility: [facility] Address: [address] [place] [address] Performed By: #### 5 8410-2 #### [facility] CLIA [id number] [address] [place] [address] [place] Chloride [Moles/Vol] 107 mmol/L High 97-105 [facility] Comment on above: Order Comment: Speci men Type: BLOOD SPECIMEN Ordering Facility: [facility] Address: [address] [place] [address] Performed By: #### 5 8410-2 #### [facility] CLIA [id number] [address] [place] [address] [place] CO2 [Moles/Vol] 23 mmol/L Normal 22-30 [facility] Comment on above: Order Comment: Speci men Type: BLOOD SPECIMEN Ordering Facility: [facility] Address: [address] [place] [address] Performed By: #### 5 8410-2 #### [facility] CLIA [id number] [address] [place] [address] [place] Creatinine [Mass/Vol] 0.67 mg/dL Normal 0.58-0.96 [facility] Comment on above: Order Comment: Leanne terry Type: BLOOD SPECIMEN Ordering Facility: [facility] Address: [address] [id number] Performed By: #### 5 8410-2 #### [facility] CLIA [id number] [address] [place] [address] [place] ESTIMATED GLOMERULAR FILTRATION RATE 107 mL/min/1.73m??? Normal >=60 [facility] Comment on above: Order Comment: Leanne terry Type: BLOOD SPECIMEN Ordering Facility: [facility] Address: [address] [address] Result Comment: Mary mated Glomerular Filtration Rate [...] GFR. Performed By: #### 5 8410-2 #### [facility] CLIA [id number] [address] [place] [address] [place] Glucose [Mass/Vol] 84 mg/dL Normal 74-99 [facility] Comment on above: Order Comment: Leanne terry Type: BLOOD SPECIMEN Ordering Facility: [facility] Address: [address] [address] Result Comment: The Stateless Diabetes Association (ADA) provides guidance for cutoff [...] Standards of Medical Care in Diabetes 2016, Stateless Diabetes Association. Diabetes Care. 2016.39(Suppl 1). Performed By: #### 5 8410-2 #### [facility] CLIA [id number] [address] [place] [address] [place] Potassium [Moles/Vol] 3.8 mmol/L Normal 3.7-5.1 [facility] Comment on above: Order Comment: Speci men Type: BLOOD SPECIMEN Ordering Facility: [facility] Address: [address] [place] [address] Performed By: #### 5 8410-2 #### [facility] CLIA [id number] [address] [place] [address] [place] Sodium [Moles/Vol] 140 mmol/L Normal 136-144 [facility] Comment on above: Order Comment: Speci men Type: BLOOD SPECIMEN Ordering Facility: [facility] Address: [address] [place] [address] Performed By: #### 5 8410-2 #### [facility] CLIA [id number] [address] [place] [address] [place] Urea nitrogen [Mass/Vol] 11 mg/dL Normal 7-21 [facility] Comment on above: Order Comment: Speci men Type: BLOOD SPECIMEN Ordering Facility: [facility] Address: [address] [place] [address] Performed By: #### 5 8410-2 #### [facility] CLIA [id number] [address] [place] [address] [place] CBC W Auto Differential pane l (Bld)on 03-31-2022 Basophils (Bld) [#/Vol] 0.03 10*3/uL Normal <0.11 [facility] Comment on above: Order Comment: Speci men Type: BLOOD SPECIMEN Ordering Facility: [facility] Address: [address] [place] [address] Performed By: #### 5 7021-8 #### [facility] CLIA [id number] [address] [place] [address] [place] Basophils/100 WBC (Bld) 0.4 % Normal [facility] Comment on above: Order Comment: Speci men Type: BLOOD SPECIMEN Ordering Facility: [facility] Address: [address] [place] [address] Performed By: #### 5 7021-8 #### [facility] CLIA [id number] [address] [place] [address] [place] Differential cell count method Nom (Bld) Auto Normal [facility] Comment on above: Order Comment: Speci men Type: BLOOD SPECIMEN Ordering Facility: [facility] Address: [address] [place] [address] Performed By: #### 5 7021-8 #### [facility] CLIA [id number] [address] [place] [address] [place] Eosinophils (Bld) [#/Vol] 0.38 10*3/uL Normal <0.46 [facility] Comment on above: Order Comment: Speci men Type: BLOOD SPECIMEN Ordering Facility: [facility] Address: [address] [place] [address] Performed By: #### 5 7021-8 #### [facility] CLIA [id number] [address] [place] [address] [place] Eosinophils/100 WBC (Bld) 4.4 % Normal [facility] Comment on above: Order Comment: Speci men Type: BLOOD SPECIMEN Ordering Facility: [facility] Address: [address] [place] [address] Performed By: #### 5 7021-8 #### [facility] CLIA [id number] [address] [place] [address] [place] Erythrocyte distribution width (RBC) [Ratio] 12.6 % Normal 11.5-15.0 [facility] Comment on above: Order Comment: Speci men Type: BLOOD SPECIMEN Ordering Facility: [facility] Address: [address] [place] [address] Performed By: #### 5 7021-8 #### [facility] CLIA [id number] [address] [place] [address] [place] Hematocrit (Bld) [Volume fraction] 30.0 % Low 36.0-46.0 [facility] Comment on above: Order Comment: Speci men Type: BLOOD SPECIMEN Ordering Facility: [facility] Address: [address] [place] [address] Performed By: #### 5 7021-8 #### [facility] CLIA [id number] [address] [place] [address] [place] Hemoglobin (Bld) [Mass/Vol] 9.9 g/dL Low 11.5-15.5 [facility] Comment on above: Order Comment: Speci men Type: BLOOD SPECIMEN Ordering Facility: [facility] Address: [address] [place] [address] Performed By: #### 5 7021-8 #### [facility] CLIA [id number] [address] [place] [address] IMMATURE GRAN % 0.4 % Normal [facility] Comment on above: Order Comment: Speci men Type: BLOOD SPECIMEN Ordering Facility: [facility] Address: [address] [place] [address] Performed By: #### 5 7021-8 #### [facility] CLIA [id number] [address] [place] [address] IMMATURE GRAN ABS 0.03 k/uL Normal <0.10 [facility] Comment on above: Order Comment: Speci men Type: BLOOD SPECIMEN Ordering Facility: [facility] Address: [address] [place] [address] Performed By: #### 5 7021-8 #### [facility] CLIA [id number] [address] [place] [address] [place] Lymphocytes (Bld) [#/Vol] 1.24 10*3/uL Normal 1.00-4.00 [facility] Comment on above: Order Comment: Speci men Type: BLOOD SPECIMEN Ordering Facility: [facility] Address: [address] [place] [address] Performed By: #### 5 7021-8 #### [facility] CLIA [id number] [address] [place] [address] [place] Lymphocytes/100 WBC (Bld) 14.5 % Normal [facility] Comment on above: Order Comment: Speci men Type: BLOOD SPECIMEN Ordering Facility: [facility] Address: [address] [place] [address] Performed By: #### 5 7021-8 #### [facility] CLIA [id number] [address] [place] [address] MCH (RBC) [Entitic mass] 29.6 pg Normal 26.0-34.0 [facility] Comment on above: Order Comment: Speci men Type: BLOOD SPECIMEN Ordering Facility: [facility] Address: [address] [place] [address] Performed By: #### 5 7021-8 #### [facility] CLIA [id number] [address] [place] [address] [place] MCHC (RBC) [Mass/Vol] 33.0 g/dL Normal 30.5-36.0 [facility] Comment on above: Order Comment: Speci men Type: BLOOD SPECIMEN Ordering Facility: [facility] Address: [address] [place] [address] Performed By: #### 5 7021-8 #### [facility] CLIA [id number] [address] [place] [address] [place] MCV (RBC) [Entitic vol] 89.8 fL Normal 80.0-100.0 [facility] Comment on above: Order Comment: Speci men Type: BLOOD SPECIMEN Ordering Facility: [facility] Address: [address] [place] [address] Performed By: #### 5 7021-8 #### [facility] CLIA [id number] [address] [place] [address] [place] Monocytes (Bld) [#/Vol] 0.48 10*3/uL Normal <0.87 [facility] Comment on above: Order Comment: Speci men Type: BLOOD SPECIMEN Ordering Facility: [facility] Address: [address] [place] [address] Performed By: #### 5 7021-8 #### [facility] CLIA [id number] [address] [place] [address] [place] Monocytes/100 WBC (Bld) 5.6 % Normal [facility] Comment on above: Order Comment: Speci men Type: BLOOD SPECIMEN Ordering Facility: [facility] Address: [address] [place] [address] Performed By: #### 5 7021-8 #### [facility] CLIA [id number] [address] [place] [address] [place] Neutrophils (Bld) [#/Vol] 6.41 10*3/uL Normal 1.45-7.50 [facility] Comment on above: Order Comment: Speci men Type: BLOOD SPECIMEN Ordering Facility: [facility] Address: [address] [place] [address] Performed By: #### 5 7021-8 #### [facility] CLIA [id number] [address] [place] [address] [place] Neutrophils/100 WBC (Bld) 74.7 % Normal [facility] Comment on above: Order Comment: Speci men Type: BLOOD SPECIMEN Ordering Facility: [facility] Address: [address] [place] [address] Performed By: #### 5 7021-8 #### [facility] CLIA [id number] [address] [place] [address] [place] Nucleated RBC (Bld) [#/Vol] 10*3/uL Normal <0.01 [facility] Comment on above: Order Comment: Speci men Type: BLOOD SPECIMEN Ordering Facility: [facility] Address: [address] [place] [address] Performed By: #### 5 7021-8 #### [facility] CLIA [id number] [address] [place] [address] [place] Nucleated RBC/100 WBC (Bld) [Ratio] 0.0 /100 WBC Normal [facility] Comment on above: Order Comment: Speci men Type: BLOOD SPECIMEN Ordering Facility: [facility] Address: [address] [place] [address] Performed By: #### 5 7021-8 #### [facility] CLIA [id number] [address] [place] [address] [place] Platelet mean volume (Bld) [Entitic vol] 9.0 fL Normal 9.0-12.7 [facility] Comment on above: Order Comment: Speci men Type: BLOOD SPECIMEN Ordering Facility: [facility] Address: [address] [place] [address] Performed By: #### 5 7021-8 #### [facility] CLIA [id number] [address] [place] [address] [place] Platelets (Bld) [#/Vol] 246 10*3/uL Normal 150-400 [facility] Comment on above: Order Comment: Speci men Type: BLOOD SPECIMEN Ordering Facility: [facility] Address: [address] [place] [address] Performed By: #### 5 7021-8 #### [facility] CLIA [id number] [address] [place] [address] [place] RBC (Bld) [#/Vol] 3.34 10*6/uL Low 3.90-5.20 [facility] Comment on above: Order Comment: Speci men Type: BLOOD SPECIMEN Ordering Facility: [facility] Address: [address] [place] [address] Performed By: #### 5 7021-8 #### [facility] CLIA [id number] [address] [place] [address] [place] WBC (Bld) [#/Vol] 8.57 10*3/uL Normal 3.70-11.00 [facility] Comment on above: Order Comment: Speci men Type: BLOOD SPECIMEN Ordering Facility: [facility] Address: [address] [place] [address] Performed By: #### 5 7021-8 #### [facility] CLIA [id number] [address] [place] [address] [place] CONSULT PROGon 03-31-2022 CONSULT PROG HNO ID: [id number] Author: Joslyn Jain APRN.GRAPHIC SPECIALIST Service: Pain Management Author Type: Nurse Practitioner [...] AND U (more content not included)... Normal [facility] Magnesium SerPl-mCncon 03-31 Magnesium [Mass/Vol] 1.6 mg/dL Low 1.7-2.3 [facility] Comment on above: Order Comment: Speci men Type: BLOOD SPECIMEN Ordering Facility: [facility] Address: [address] [place] [address] Performed By: #### 5 8410-2 #### [facility] CLIA [id number] [address] [place] [address] [place] NURSING PROGon 03-31-2022 NURSING PROG HNO ID: [id number] Author: Daisy Amaya RN Service: Nursing Author Type: Registered Nurse Type: Nursing Progress Note Filed: 03/31/2022 4:56 PM Note Text: Nursing Progress Note Patient Name: Mary Leal Patient Location: [facility] Daily Note: 0931- Pt A+Ox3. Up with standby assist. Ambulated pod multiple times. Laps intact. Old ostomy site WNL. Pt having liquid brown BMs. Voiding adq. No nausea, cp, or sob. Taps infusing per JAN. Pain controlled with PRN oxy. No further needs at this time. This note was completed by: Daisy Amaya [facility] NURSING PROG HNO ID: [id number] Author: Mariluz Carnes, RN Service: Nursing Author Type: Registered Nurse Type: Nursing Progress Note Filed: 03/30/2022 11:47 PM Note Text: Nursing Progress Note Patient Name: Mary Leal Patient Location: [facility]/ Daily Note: Pt's BP 90/52. Patient asymptomatic. Surgery made aware. Order in for Bolus LR 500CC's. This note was completed by: Mariluz Carnes [facility] Phosphate SerPl-mCncon 03-31 Phosphate [Mass/Vol] 2.7 mg/dL Normal 2.7-4.8 [facility] Comment on above: Order Comment: Speci men Type: BLOOD SPECIMEN Ordering Facility: [facility] Address: [facility] [place] [address] Performed By: #### 5 8410-2 #### [facility] CLIA [id number] [address] [place] [address] [place] Basic metabolic 2000 panelon 03-30-2022 Anion gap [Moles/Vol] 10 mmol/L Normal 9-18 [facility] Comment on above: Order Comment: Speci men Type: BLOOD SPECIMEN Ordering Facility: [facility] Address: [address] [place], [place] [id number] Performed By: #### 1 9123-9, 2776-11, #### [facility] CLIA [id number] [address] [place] [address] [place] Calcium [Mass/Vol] 8.5 mg/dL Normal 8.5-10.2 [facility] Comment on above: Order Comment: Speci men Type: BLOOD SPECIMEN Ordering Facility: [facility] Address: [address] [place], [place] [id number] Performed By: #### 1 9123-9, 2776-11, #### [facility] CLIA [id number] [address] [place] [address] [place] Chloride [Moles/Vol] 103 mmol/L Normal 97-105 [facility] Comment on above: Order Comment: Speci men Type: BLOOD SPECIMEN Ordering Facility: [facility] Address: [address] [place] [address] Performed By: #### 1 9123-9, 2776-11, #### [facility] CLIA [id number] [address] [place] [address] [place] CO2 [Moles/Vol] 24 mmol/L Normal 22-30 [facility] Comment on above: Order Comment: Speci men Type: BLOOD SPECIMEN Ordering Facility: [facility] Address: [address] [place], [place] [address] Performed By: #### 1 9123-9, 2776-11, #### [facility] CLIA [id number] [address] [place] [address] [place] Creatinine [Mass/Vol] 0.69 mg/dL Normal 0.58-0.96 [facility] Comment on above: Order Comment: Speci men Type: BLOOD SPECIMEN Ordering Facility: [facility] Address: [address] [place], [place] [address] Performed By: #### 1 9123-9, 2777-1, 23733-9 #### [facility] CLIA [id number] [address] ESTIMATED GLOMERULAR FILTRATION RATE 107 mL/min/1.73m??? Normal >=60 [facility] Comment on above: Order Comment: Leanne terry Type: BLOOD SPECIMEN Ordering Facility: [facility] Address: [address] [place] [address] Result Comment: Mary mated Glomerular Filtration Rate [...] GFR. Performed By: #### 1 9123-9, 2777-, 13530-0 #### [facility] CLIA [id number] [address] [place] [address] Glucose [Mass/Vol] 117 mg/dL High 74-99 [facility] Comment on above: Order Comment: Leanne terry Type: BLOOD SPECIMEN Ordering Facility: [facility] Address: [address] [place] [address] Result Comment: The Stateless Diabetes Association (ADA) provides guidance for cutoff [...] Standards of Medical Care in Diabetes 2016, Stateless Diabetes Association. Diabetes Care. 2016.39(Suppl 1). Performed By: #### 1 9123-9, 2777-1, 93263-5 #### [facility] CLIA [id number] [address] [place] [address] [place] Potassium [Moles/Vol] 3.9 mmol/L Normal 3.7-5.1 [facility] Comment on above: Order Comment: Speci men Type: BLOOD SPECIMEN Ordering Facility: [facility] Address: [address] [place] [address] Performed By: #### 1 9123-9, 2777-1, 53439-0 #### [facility] CLIA [id number] [address] [place] [address] [place] Sodium [Moles/Vol] 137 mmol/L Normal 136-144 [facility] Comment on above: Order Comment: Speci men Type: BLOOD SPECIMEN Ordering Facility: [facility] Address: [address] [place] [address] Performed By: #### 1 9123-9, 2777-1, 41879-5 #### [facility] CLIA [id number] [address] [place] [address] [place] Urea nitrogen [Mass/Vol] 13 mg/dL Normal 7-21 [facility] Comment on above: Order Comment: Speci men Type: BLOOD SPECIMEN Ordering Facility: [facility] Address: [address] [place] [address] Performed By: #### 1 9123-9, 2777-, 40466-0 #### [facility] CLIA [id number] [address] [place] [address] [place] CBC panel Auto (Bld)on 03-30 Erythrocyte distribution width (RBC) [Ratio] 12.8 % Normal 11.5-15.0 [facility] Comment on above: Order Comment: Speci men Type: BLOOD SPECIMEN Ordering Facility: [facility] Address: [address] [place] [address] Performed By: #### 5 8410-2 #### [facility] CLIA [id number] [address] [place] [address] [place] Hematocrit (Bld) [Volume fraction] 35.0 % Low 36.0-46.0 [facility] Comment on above: Order Comment: Speci men Type: BLOOD SPECIMEN Ordering Facility: [facility] Address: [address] [place] [address] Performed By: #### 5 8410-2 #### [facility] CLIA [id number] [address] [place] [address] Hemoglobin (Bld) [Mass/Vol] 11.8 g/dL Normal 11.5-15.5 [facility] Comment on above: Order Comment: Speci men Type: BLOOD SPECIMEN Ordering Facility: [facility] Address: [address] [place] [address] Performed By: #### 5 8410-2 #### [facility] CLIA [id number] [address] [place] [address] [place] MCH (RBC) [Entitic mass] 30.6 pg Normal 26.0-34.0 [facility] Comment on above: Order Comment: Speci men Type: BLOOD SPECIMEN Ordering Facility: [facility] Address: [address] [place] [address] Performed By: #### 5 8410-2 #### [facility] CLIA [id number] [address] [place] [address] STATES [facility] MCHC (RBC) [Mass/Vol] 33.7 g/dL Normal 30.5-36.0 [facility] Comment on above: Order Comment: Speci men Type: BLOOD SPECIMEN Ordering Facility: [facility] Address: [address] [place] [address] Performed By: #### 5 8410-2 #### [facility] CLIA [id number] [address] [place] [address] STATES [facility] MCV (RBC) [Entitic vol] 90.7 fL Normal 80.0-100.0 [facility] Comment on above: Order Comment: Speci men Type: BLOOD SPECIMEN Ordering Facility: [facility] Address: [address] [place] [address] Performed By: #### 5 8410-2 #### [facility] CLIA [id number] [address] [place] [address] [place] Nucleated RBC (Bld) [#/Vol] 10*3/uL Normal <0.01 [facility] Comment on above: Order Comment: Speci men Type: BLOOD SPECIMEN Ordering Facility: [facility] Address: [address] [place] [address] Performed By: #### 5 8410-2 #### [facility] CLIA [id number] [address] [place] [address] [place] Platelet mean volume (Bld) [Entitic vol] 8.9 fL Low 9.0-12.7 [facility] Comment on above: Order Comment: Speci men Type: BLOOD SPECIMEN Ordering Facility: [facility] Address: [address] [place] [address] Performed By: #### 5 8410-2 #### [facility] CLIA [id number] [address] [place] [address] [place] Platelets (Bld) [#/Vol] 293 10*3/uL Normal 150-400 [facility] Comment on above: Order Comment: Speci men Type: BLOOD SPECIMEN Ordering Facility: [facility] Address: [address] [place] [address] Performed By: #### 5 8410-2 #### [facility] CLIA [id number] [address] [place] [address] [place] RBC (Bld) [#/Vol] 3.86 10*6/uL Low 3.90-5.20 [facility] Comment on above: Order Comment: Speci men Type: BLOOD SPECIMEN Ordering Facility: [facility] Address: [address] [place], [place] [id number] Performed By: #### 5 8410-2 #### [facility] CLIA [id number] [address] [place] [address] [place] WBC (Bld) [#/Vol] 11.25 10*3/uL High 3.70-11.00 [facility] Comment on above: Order Comment: Speci men Type: BLOOD SPECIMEN Ordering Facility: [facility] Address: [address] [place], [place] [address] Performed By: #### 5 8410-2 #### [id number] [address] [place] [address] [place] CONSULT PROGon 03-30-2022 CONSULT PROG HNO ID: [id number] Author: Joslyn Jain APRN.KWESI Service: Pain Management [...] eGFR >= (more content not included)... Normal [facility] Magnesium [facility] 03-30 Magnesium [Mass/Vol] 1.6 mg/dL Low 1.7-2.3 [facility] Comment on above: Order Comment: Speci men Type: BLOOD SPECIMEN Ordering Facility: [facility] Address: [address] [place] [address] Performed By: #### 1 9123-9, 2777-1, 13441-5 #### [facility] CLIA [id number] [address] [place] [address] [place] [facility]ate [facility] Phosphate [Mass/Vol] 2.9 mg/dL Normal 2.7-4.8 [facility] Comment on above: Order Comment: Speci men Type: BLOOD SPECIMEN Ordering Facility: [facility] Address: [facility] [place] [address] Performed By: #### 1 9123-9, 2777-1, 32638-9 #### [facility] CLIA [id number] OF [facility] ANES POSTPROC EVALon 022 ANES POSTPROC EVAL HNO ID: [id number] Author: Nathanael Craig DO Service: Anesthesiology Author [...] March 29, 2022 TIME: 8:29 AM CSN: [id number] Normal [facility] Basic metabolic 2000 panelon 03-29-2022 Anion gap [Moles/Vol] 9 mmol/L Normal 9-18 [facility] Comment on above: Order Comment: Speci men Type: BLOOD SPECIMEN Ordering Facility: [facility] Address: [address] [place] [address] Performed By: #### 5 8410-2 #### [facility] CLIA [id number] [address] [place] [address] [place] Calcium [Mass/Vol] 7.9 mg/dL Low 8.5-10.2 [facility] Comment on above: Order Comment: Speci men Type: BLOOD SPECIMEN Ordering Facility: [facility] Address: [address] [place] [address] Performed By: #### 5 8410-2 #### [facility] CLIA [id number] [address] [place] [address] [place] Chloride [Moles/Vol] 105 mmol/L Normal 97-105 [facility] Comment on above: Order Comment: Speci men Type: BLOOD SPECIMEN Ordering Facility: [facility] Address: [address] [place] [address] Performed By: #### 5 8410-2 #### [facility] CLIA [id number] [address] [place] [address] [place] CO2 [Moles/Vol] 24 mmol/L Normal 22-30 [facility] Comment on above: Order Comment: Speci men Type: BLOOD SPECIMEN Ordering Facility: [facility] Address: [address] [place] [address] Performed By: #### 5 8410-2 #### [facility] CLIA [id number] [address] [place] [address] [place] Creatinine [Mass/Vol] 0.70 mg/dL Normal 0.58-0.96 [facility] Comment on above: Order Comment: Speci men Type: BLOOD SPECIMEN Ordering Facility: [facility] Address: [address] [address] Performed By: #### 5 8410-2 #### [facility] CLIA [id number] ESTIMATED GLOMERULAR FILTRATION RATE 106 mL/min/1.73m??? Normal >=60 [facility] Comment on above: Order Comment: Leanne terry Type: BLOOD SPECIMEN Ordering Facility: [facility] Address: [address] [address] Result Comment: Mary mated Glomerular Filtration Rate [...] GFR. Performed By: #### 5 8410-2 #### [facility] CLIA [id number] [place] [address] [place] Glucose [Mass/Vol] 92 mg/dL Normal 74-99 [facility] Comment on above: Order Comment: Leanne terry Type: BLOOD SPECIMEN Ordering Facility: [facility] Address: [address] [place] [address] Result Comment: The Stateless Diabetes Association (ADA) provides guidance for cutoff [...] Standards of Medical Care in Diabetes 2016, Stateless Diabetes Association. Diabetes Care. 2016.39(Suppl 1). Performed By: #### 5 8410-2 #### [facility] CLIA [id number] [address] [place] [address] [place] Potassium [Moles/Vol] 4.1 mmol/L Normal 3.7-5.1 [facility] Comment on above: Order Comment: Speci men Type: BLOOD SPECIMEN Ordering Facility: [facility] Address: [address] [place] [address] Performed By: #### 5 8410-2 #### [facility] CLIA [id number] [address] [place] [address] [place] Sodium [Moles/Vol] 138 mmol/L Normal 136-144 [facility] Comment on above: Order Comment: Speci men Type: BLOOD SPECIMEN Ordering Facility: [facility] Address: [address] [place] [address] Performed By: #### 5 8410-2 #### [facility] CLIA [id number] [address] [place] [address] [place] Urea nitrogen [Mass/Vol] 12 mg/dL Normal 7-21 [facility] Comment on above: Order Comment: Speci men Type: BLOOD SPECIMEN Ordering Facility: [facility] Address: [address] [place] [address] Performed By: #### 5 8410-2 #### [facility] CLIA [id number] [address] [place] [address] [place] CBC W Auto Differential pane l (Bld)on 03-29-2022 Basophils (Bld) [#/Vol] 0.04 10*3/uL Normal <0.11 [facility] Comment on above: Order Comment: Speci men Type: BLOOD SPECIMEN Ordering Facility: [facility] Address: [address] [place] [address] Performed By: #### 5 7021-8 #### [facility] CLIA [id number] [address] [place] [address] [place] Basophils/100 WBC (Bld) 0.6 % Normal [facility] Comment on above: Order Comment: Speci men Type: BLOOD SPECIMEN Ordering Facility: [facility] Address: [address] [place] [address] Performed By: #### 5 7021-8 #### [facility] CLIA [id number] [address] [place] [address] [place] Differential cell count method Nom (Bld) Auto Normal [facility] Comment on above: Order Comment: Speci men Type: BLOOD SPECIMEN Ordering Facility: [facility] Address: [address] [place] [address] Performed By: #### 5 7021-8 #### [facility] CLIA [id number] [address] [place] [address] [place] Eosinophils (Bld) [#/Vol] 0.16 10*3/uL Normal <0.46 [facility] Comment on above: Order Comment: Speci men Type: BLOOD SPECIMEN Ordering Facility: [facility] Address: [address] [place] [address] Performed By: #### 5 7021-8 #### [facility] CLIA [id number] [address] [place] [address] [place] Eosinophils/100 WBC (Bld) 2.3 % Normal [facility] Comment on above: Order Comment: Speci men Type: BLOOD SPECIMEN Ordering Facility: [facility] Address: [address] [place] [address] Performed By: #### 5 7021-8 #### [facility] CLIA [id number] [address] [place] [address] [place] Erythrocyte distribution width (RBC) [Ratio] 12.8 % Normal 11.5-15.0 [facility] Comment on above: Order Comment: Speci men Type: BLOOD SPECIMEN Ordering Facility: [facility] Address: [address] [place] [address] Performed By: #### 5 7021-8 #### [facility] CLIA [id number] [address] [place] [address] [place] Hematocrit (Bld) [Volume fraction] 32.3 % Low 36.0-46.0 [facility] Comment on above: Order Comment: Speci men Type: BLOOD SPECIMEN Ordering Facility: [facility] Address: [address] [place] [address] Performed By: #### 5 7021-8 #### [facility] CLIA [id number] [address] [place] [address] [place] Hemoglobin (Bld) [Mass/Vol] 10.7 g/dL Low 11.5-15.5 [facility] Comment on above: Order Comment: Speci men Type: BLOOD SPECIMEN Ordering Facility: [facility] Address: [address] [place] [address] Performed By: #### 5 7021-8 #### [facility] CLIA [id number] [address] [place] [address] [place] IMMATURE GRAN % 0.3 % Normal [facility] Comment on above: Order Comment: Speci men Type: BLOOD SPECIMEN Ordering Facility: [facility] Address: [address] [place] [address] Performed By: #### 5 7021-8 #### [facility] CLIA [id number] [address] [place] [address] [place] IMMATURE GRAN ABS <0.03 Normal <0.10 [facility] Comment on above: Order Comment: Speci men Type: BLOOD SPECIMEN Ordering Facility: [facility] Address: [address] [place] [address] Performed By: #### 5 7021-8 #### [facility] CLIA [id number] [address] [place] [address] [place] Lymphocytes (Bld) [#/Vol] 1.39 10*3/uL Normal 1.00-4.00 [facility] Comment on above: Order Comment: Speci men Type: BLOOD SPECIMEN Ordering Facility: [facility] Address: [address] [place] [address] Performed By: #### 5 7021-8 #### [facility] CLIA [id number] [address] [place] [address] Lymphocytes/100 WBC (Bld) 19.7 % Normal [facility] Comment on above: Order Comment: Speci men Type: BLOOD SPECIMEN Ordering Facility: [facility] Address: [address] [place] [address] Performed By: #### 5 7021-8 #### [facility] CLIA [id number] [address] [place] [address] STATES [facility] MCH (RBC) [Entitic mass] 29.8 pg Normal 26.0-34.0 [facility] Comment on above: Order Comment: Speci men Type: BLOOD SPECIMEN Ordering Facility: [facility] Address: [address] [place] [address] Performed By: #### 5 7021-8 #### [facility] CLIA [id number] [address] [place] [address] [place] MCHC (RBC) [Mass/Vol] 33.1 g/dL Normal 30.5-36.0 [facility] Comment on above: Order Comment: Speci men Type: BLOOD SPECIMEN Ordering Facility: [facility] Address: [address] [place] [address] Performed By: #### 5 7021-8 #### [facility] CLIA [id number] [address] [place] [address] [place] MCV (RBC) [Entitic vol] 90.0 fL Normal 80.0-100.0 [facility] Comment on above: Order Comment: Speci men Type: BLOOD SPECIMEN Ordering Facility: [facility] Address: [address] [place] [address] Performed By: #### 5 7021-8 #### [facility] CLIA [id number] [address] [place] [address] [place] Monocytes (Bld) [#/Vol] 0.55 10*3/uL Normal <0.87 [facility] Comment on above: Order Comment: Speci men Type: BLOOD SPECIMEN Ordering Facility: [facility] Address: [address] [place] [address] Performed By: #### 5 7021-8 #### [facility] CLIA [id number] [address] [place] [address] Monocytes/100 WBC (Bld) 7.8 % Normal [facility] Comment on above: Order Comment: Speci men Type: BLOOD SPECIMEN Ordering Facility: [facility] Address: [address] [place] [address] Performed By: #### 5 7021-8 #### [facility] CLIA [id number] [address] [place] [address] [place] Neutrophils (Bld) [#/Vol] 4.88 10*3/uL Normal 1.45-7.50 [facility] Comment on above: Order Comment: Speci men Type: BLOOD SPECIMEN Ordering Facility: [facility] Address: [address] [place] [address] Performed By: #### 5 7021-8 #### [facility] CLIA [id number] [address] [place] [address] [place] Neutrophils/100 WBC (Bld) 69.3 % Normal [facility] Comment on above: Order Comment: Speci men Type: BLOOD SPECIMEN Ordering Facility: [facility] Address: [address] [place] [address] Performed By: #### 5 7021-8 #### [facility] CLIA [id number] [address] [place] [address] [place] Nucleated RBC (Bld) [#/Vol] 10*3/uL Normal <0.01 [facility] Comment on above: Order Comment: Speci men Type: BLOOD SPECIMEN Ordering Facility: [facility] Address: [address] [place] [address] Performed By: #### 5 7021-8 #### [facility] CLIA [id number] [address] [place] [address] [place] Nucleated RBC/100 WBC (Bld) [Ratio] 0.0 /100 WBC Normal [facility] Comment on above: Order Comment: Speci men Type: BLOOD SPECIMEN Ordering Facility: [facility] Address: [address] [place] [address] Performed By: #### 5 7021-8 #### [facility] CLIA [id number] [address] [place] [address] [place] Platelet mean volume (Bld) [Entitic vol] 9.0 fL Normal 9.0-12.7 [facility] Comment on above: Order Comment: Speci men Type: BLOOD SPECIMEN Ordering Facility: [facility] Address: [address] [place] [address] Performed By: #### 5 7021-8 #### [facility] CLIA [id number] [address] [place] [address] [place] Platelets (Bld) [#/Vol] 241 10*3/uL Normal 150-400 [facility] Comment on above: Order Comment: Speci men Type: BLOOD SPECIMEN Ordering Facility: [facility] Address: [address] [place] [address] Performed By: #### 5 7021-8 #### [facility] CLIA [id number] [address] [place] [address] [place] RBC (Bld) [#/Vol] 3.59 10*6/uL Low 3.90-5.20 [facility] Comment on above: Order Comment: Speci men Type: BLOOD SPECIMEN Ordering Facility: [facility] Address: [address] [place] [address] Performed By: #### 5 7021-8 #### [facility] CLIA [id number] [address] [place] [address] [place] WBC (Bld) [#/Vol] 7.04 10*3/uL Normal 3.70-11.00 [facility] Comment on above: Order Comment: Speci men Type: BLOOD SPECIMEN Ordering Facility: [facility] Address: [address] [place] [address] Performed By: #### 5 7021-8 #### [facility] CLIA [id number] [address] [place] [address] [place] CONSULT PROGon 03-29-2022 CONSULT PROG HNO ID: [id number] Author: Joslyn Jain APRN.GRAPHIC SPECIALIST Service: Pain Management Author Type: Nurse Practitioner [...] is on liq diet, currently on Dilaudid MANAGER OPERATING at 0/0.2/10/6 last 2 hours 06/27 bolus [...] No Relieved: Yes - NOW with increase MANAGER OPERATING and Repositioning and MANAGER OPERATING Is patient satisfied with pain control: Yes [...] mL PERIPHERAL NERVE CATHETER CONTINUOUS - HYDROmorphone MANAGER OPERATING 0.5 mg/mL in NaCl 0.9% 100 mL [...] % 69.3 (more content not included)... Normal [facility] Magnesium SerPl-mCncon 03-29 Magnesium [Mass/Vol] 1.4 mg/dL Low 1.7-2.3 [facility] Comment on above: Order Comment: Speci men Type: BLOOD SPECIMEN Ordering Facility: [facility] Address: [address] [place] [address] Performed By: #### 5 8410-2 #### [facility] CLIA [id number] [address] [place] [address] OF [facility] NURSING PROGon 03-29-2022 NURSING PROG HNO ID: [id number] Author: Dipti [place] RN Service: Nursing Author Type: Registered Nurse Type: Nursing Progress Note Filed: 03/29/2022 2:00 PM Note Text: Nursing Progress Note Patient Name: Mary Leal Patient Location: / Daily Note: Patient VSS. RA POx. Pain level better controlled now that MANAGER OPERATING initiated. B/L Ropivacaine Tap Blocks with dressings [...] This note was completed by: Dipti [place] [facility] NURSING PROG HNO ID: [id number] Author: Kev Leone RN Service: ? Author Type: Registered Nurse Type: Nursing Progress Note Filed: 03/29/2022 3:53 AM Note Text: Nursing Progress Note Patient Name: Mary Leal Patient Location: [address] [address] [address] Daily Note: 0350: Pt states she is in 10/10 pain, pt has no PO pain meds ordered, page sent to surgery resident This note was completed by: Kev Leone [facility] PT EDon 03-29-2022 PT ED HNO ID: [id number] Author: Merced Morales DTR Service: Nutrition Therapy Author Type: English Composition Teacher Type: Patient Education Filed: 03/29/2022 11:05 [...] 29, 2022 TIME: 11:04 AM PAGER: Normal [facility] Phosphate SerPl-mCncon 03-29 Phosphate [Mass/Vol] 2.9 mg/dL Normal 2.7-4.8 [facility] Comment on above: Order Comment: Speci men Type: BLOOD SPECIMEN Ordering Facility: [facility] Address: [address] [place] [address] Performed By: #### 5 8410-2 #### [facility] CLIA [id number] [place] [address] OF [facility] ANES PRE-OPon 03-28-2022 ANES PRE-OP HNO ID: [id number] Author: Anibal Bertrand MD Service: Anesthesiology Author Type: Anesthesiologist Type: Anesthesia Preprocedure Evaluation Filed: 03/28/2022 8:29 AM Note Text: ANESTHESIOLOGY DAY OF SURGERY NOTE : 1970 Procedure Information Date/Time: 03/28/2230 Procedures: LAPAROSCOPIC TOTAL COLECTOMY LITHOTOMY (N/A Abdomen) [...] LUNGS every 4 hours if needed - tohjlonqlbc-ifkottymw-cjc anter (TRELEGY ELLIPTA) 100-62.5-25 mcg Inhale 1 [...] (FLONASE) 50 mcg/actuation nasal spray Use 1 [place] in each nostril on (more content not included)... [facility] BRIEF OP NOTon 03-28-2022 BRIEF OP NOT HNO ID: [id number] Author: Nita Lamas MD Service: Colorectal Author Type: Fellow Type: Brief Op Note Filed: 03/28/2022 3:43 PM Note Text: BRIEF OPERATIVE NOTE - COLORECTAL SURGERY Log ID: [id number] Surgery/Procedure Date: 03/28/2022 Incision/Procedure Start Time: 9:47 AM Incision Close/Procedure End Time: 3:40 PM Surgeon(s) and Blocking Machine Operator(s): Surgeon(s) and Role: * Mary [place]rien [...] DATE: March 28, 2022 TIME: 3:42 PM [facility] NURSING PROGon 03-28-2022 NURSING PROG HNO ID: [id number] Author: Merced Lay RN Service: ? Author Type: Registered Nurse Type: Nursing Progress Note Filed: 03/28/2022 6:56 PM Note Text: Nursing Progress Note Patient Name: Mary Leal Patient Location: [place] [address]/[id number] Transfer Note: [facility]. Actions taken: No futher actions taken at this time. Will continue to monitor and check with patient. Paged surgical team. Pt has TAP blocks, but orders were discontinued from PACU. New orders for blocks need to be placed in eMAR. Awaiting call back or orders. This note was completed by: Merced Lay [facility] NURSING PROG HNO ID: [id number] Author: Monica Nicole RN Service: Nursing Author Type: Registered Nurse Type: Nursing Progress Note Filed: 03/28/2022 6:35 PM Note Text: Nursing Progress Note Patient Name: Mary Leal Patient Location: [facility] OR POOL/[facility] OR POOL Daily Note: 1750: Dr. Novak notified of patients increase in heart rate from arrival to post op. Patient HR now maintaining in the 120s. 1830: university relations vice president rounding at patient bedside. Dressing and abdomen assessed- drainage to be expected on island dressing. Notified him of patients HR running high and notified that patient normally takes 50mg atenolol but held today for surgery. Patient's pain managed and other VS stable at this time. university relations vice president is OK with patient going to regular nursing floor at this time. Family updated. This note was completed by: Monica Nicole [facility] NURSING PROG HNO ID: [id number] Author: Vianney Chacon RN Service: Nursing Author [...] REFERRAL (RECOMMENDATION): None Electronically Signed By: Vianney Postblanca [facility] OPERATIVE NOon 03-28-2022 OPERATIVE NO HNO ID: [id number] Author: Mary Obrien MD Service: Colorectal Author Type: Physician Type: Operative Report Filed: 03/28/2022 5:06 PM Note Text: COLON AND RECTAL SURGERY OPERATIVE REPORT PATIENT NAME: Mary Leal ADMISSION DATE: 03/28/2022 LOG ID: [id number] SURGERY/PROCEDURE DATE: 03/28/2022 INCISION/PROCEDURE START TIME: 9:47 AM INCISION CLOSE/PROCEDURE END TIME: 3:40 PM AGE: [age] year old SEX: female SURGEON(S)/PROCEDURALIST( S) AND MINE SAFETY DIRECTOR(S): Surgeon(s) and Role: * Mary [place]rien MD [...] The abdome (more content not included)... Normal [facility] SURGICAL PATHOLOGYon 022 CASE REPORT Normal [facility] Comment on above: Order Comment: Speci men Type: BLOOD SPECIMEN Ordering Facility: [facility] Address: [address] [place] [address] Result Comment: Surg ical Pathology Report Case: [id number] Authorizing Provider: Mary Obrien MD Collected: 03/28/2022 01:43 PM Ordering Location: [facility] Received: 03/28/2022 04:10 PM Operating Room Pathologist: Areli Rodriguez MD Specimen: COLON RESECTION, terminal ileum with ileostomy Performed By: #### 5 7021-8 #### [facility] CLIA [id number] CLINICAL HISTORY ILEORECTAL ANASTOMOS IS, TAKEDOWN OF ILEOSTOMY Normal [facility] Comment on above: Order Comment: Speci men Type: BLOOD SPECIMEN Ordering Facility: [facility] Address: [address] [place] [address] Performed By: #### 5 7021-8 #### [facility] CLIA [id number] DIAGNOSIS COMMENT The histologic findi ngs [...] of associated inflammation or infectious organisms. Normal [facility] Comment on above: Order Comment: Speci men Type: BLOOD SPECIMEN Ordering Facility: [facility] Address: [address] [place] [address] Performed By: #### 5 7021-8 #### [facility] CLIA [id number] [address] [place] [address] FINAL DIAGNOSIS Normal [facility] Comment on above: Order Comment: Speci men Type: BLOOD SPECIMEN Ordering Facility: [facility] Address: [address] [id number] Result Comment: Leeper n and terminal ileum with ileostomy, resection: - Colon with patchy active colitis, submucosal fibrosis, acute serositis, and fibrovascular adhesions (see comment). - Small bowel with focal transmural defect, acute serositis, fibrovascular adhesions, and changes consistent with ileostomy site. - Benign lymph nodes. JEL 03/31/2022 Performed By: #### 5 7021-8 #### [facility] CLIA [id number] [address] [place] [address] FINAL PERFORMING LAB Normal [facility] Comment on above: Order Comment: Speci men Type: BLOOD SPECIMEN Ordering Facility: [facility] Address: [address] [place], [place] [address] Result Comment: Diag nostic interpretation performed at [facility], [address] [place] [address] CLIA# [id number] Stone Decorator: Rajiv Anderson M.D. Performed By: #### 5 7021-8 #### [facility] CLIA [id number] [address] [place] [address] OF [facility] GROSS DESCRIPTION Normal [facility] Comment on above: Order Comment: Speci men Type: BLOOD SPECIMEN Ordering Facility: [facility] Address: [address] Result Comment: A. C OLON RESECTION. Received [...] diverticula. The serosa is jaimes-pink and smooth. Accounting/Finance Tutor sections are submitted from distal to proximal [...] 2022 9:53 AM Gross examination performed at [facility], [address] [place] [address] CLIA # [id number] Performed By: #### 5 7021-8 #### [facility] CLIA [id number] [address] [place] [address] [place] Q - CBC W/DIFF AND PLTon BASOABS 59 cells/uL Normal 0-200 [facility] Navigator Comment on above: Order Comment: [facility] performed at: [employer] [facility], [address], [address] [place] [address], [address] [place] [address], Stone Decorator: Gopal Hamilton MD [facility] Collection Date/Time: [facility] Results Received Date/Time: [facility] Reported Date/Time: Performed By: #### 9 68T, 93852E, %8293, 24787K, 6399, 496X #### [facility] Default [address] [place] [address] Basophils/100 WBC (Bld) 1.0 % Normal [facility] Specialist Comment on above: Order Comment: [facility] performed at: [employer], [employer] [facility], [address], [address] [place] [address], [address] [place] [address], Stone Decorator: Gopal Hamilton MD [facility] Date/Time: [facility] Results Received Date/Time: [facility] Reported Date/Time: Performed By: #### 9 68T, 51680W, %8293, 03295B, 6399, 496X #### [facility] Default [address] [place] [address] EOSABS 171 cells/uL Normal 15-500 [facility] Navigator Comment on above: Order Comment: [facility] performed at: [employer], [employer] [facility], [address], [address] [place] [address], [address] [place] [address], Stone Decorator: Gopal Hamilton MD [facility] Date/Time: [facility] Results Received Date/Time: [facility] Reported Date/Time: Performed By: #### 9 68T, 57439B, %8293, 67348K, 6399, 496X #### [facility] Default [address] [place] [address] Eosinophils/100 WBC (Bld) 2.9 % Normal [facility] Comment on above: Order Comment: [facility] performed at: [employer], [employer] [facility], [address] [facility], [address] [place] [address], [address] [place] [address], Stone Decorator: Gopal Hamilton MD [facility] Date/Time: [facility] Results Received Date/Time: [facility] Reported Date/Time: Performed By: #### 9 68T, 39767E, %8293, 09092Y, 6399, 496X #### [facility] Default [address] [place] [address] Erythrocyte distribution width (RBC) [Ratio] 12.9 % Normal 11.0-15.0 [facility] Comment on above: Order Comment: [facility] performed at: [employer], [employer] [facility], [address] [facility], [address] [place] [address], [address] [place] [address], Stone Decorator: Gopal Hamilton MD [facility] Collection Date/Time: [facility] Results Received Date/Time: [facility] Reported Date/Time: Performed By: #### 9 68T, 53819Y, %8293, 71456L, 6399, 496X #### [facility] Default [address] [place] [address] Hematocrit (Bld) [Volume fraction] 38.1 % Normal 35.0-45.0 [facility] Navigator Comment on above: Order Comment: [facility] Testing performed at: [employer], [employer] [facility], [address] [place] [address], [address] [place] [address], [address] [place] [address], Stone Decorator: Gopal Hamilton MD [facility] Collection Date/Time: [facility] Results Received Date/Time: [facility] Reported Date/Time: Performed By: #### 9 68T, 68611I, %8293, 40853K, 6399, 496X #### [facility] Default [address] [place] [address] Hemoglobin (Bld) [Mass/Vol] 12.9 g/dL Normal 11.7-15.5 [facility] Navigator Comment on above: Order Comment: [facility] Testing performed at: [employer], [employer] [facility], [address] , [address] [place] [address], [address] [place] [address], Stone Decorator: Gopal Hamilton MD [facility] Collection Date/Time: [facility] Results Received Date/Time: [facility] Reported Date/Time: Performed By: #### 9 68T, 51207E, %8293, 70750F, 6399, 496X #### [facility] Default [address] [place] [address] Lymphocytes (Bld) [#/Vol] 1.375 10*3/uL Normal 850-3900 [facility] Navigator Comment on above: Order Comment: [facility] Testing performed at: [employer], [employer] [facility], [address] , [address] [place] [address], [address] [place] [address], Stone Decorator: Gopal Hamilton MD [facility] Collection Date/Time: [facility] Results Received Date/Time: [facility] Reported Date/Time: Performed By: #### 9 68T, 17771H, %8293, 77121I, 6399, 496X #### [facility] Default [address] [place] [address] Lymphocytes/100 WBC (Bld) 23.3 % Normal [facility] Navigator Comment on above: Order Comment: [facility] performed at: [employer], [employer] [facility], [address] , [address] [place] [address], [address] [place] [address], Stone Decorator: Gopal Hamilton MD [facility] Collection Date/Time: [facility] Results Received Date/Time: [facility] Reported Date/Time: Performed By: #### 9 68T, 58549S, %8293, 26890O, 6399, 496X #### [facility] Default [address] [place] [address] MCH (RBC) [Entitic mass] 30.0 pg Normal 27.0-33.0 [facility] Specialist Comment on above: Order Comment: [facility] Testing performed at: [facility] [place], [employer] [facility], [address] [facility], [address] [place] [address], [phone], Stone Decorator: Gopal Hamilton MD [facility] Collection Date/Time: [facility] Results Received Date/Time: [facility] Reported Date/Time: Performed By: #### 9 68T, 08658C, %8293, 92863W, 6399, 496X #### [facility] Default [address] [place] [address] MCHC (RBC) [Mass/Vol] 33.9 g/dL Normal 32.0-36.0 [facility] Comment on above: Order Comment: [facility] Testing performed at: [facility] [place], [employer] [facility], [address] [facility], [address] [place] [address], [phone], Stone Decorator: Gopal Hamilton MD [facility] Collection Date/Time: [facility] Results Received Date/Time: [facility] Reported Date/Time: Performed By: #### 9 68T, 59043D, %8293, 62082T, 6399, 496X #### [facility] Default [address] [place] [address] MCV (RBC) [Entitic vol] 88.6 fL Normal 80.0-100.0 [facility] Navigator Comment on above: Order Comment: [facility] Testing performed at: [facility] [place], [employer] [facility], [address] [facility], [address] [place] [address], [phone], Stone Decorator: Gopal Hamilton MD [facility] Collection Date/Time: [facility] Results Received Date/Time: [facility] Reported Date/Time: Performed By: #### 9 68T, 16234R, %8293, 31698Q, 6399, 496X #### [facility] Default [address] [place] [address] MONOABS 460 cells/uL Normal 200-950 [facility] Comment on above: Order Comment: [facility] Testing performed at: [employer], [employer] [facility], [address] , [address] [place] [address], [address] [place] [address], Stone Decorator: Gopal Hamilton MD [facility] Collection Date/Time: [facility] Results Received Date/Time: [facility] Reported Date/Time: Performed By: #### 9 68T, 34320N, %8293, 16120T, 6399, 496X #### [facility] Default [address] [place] [address] Monocytes/100 WBC (Bld) 7.8 % Normal [facility] Comment on above: Order Comment: [facility] Testing performed at: [employer], [employer] [facility], [address] , [address] [place] [address], [address] [place] [address], Stone Decorator: Gopal Hamilton MD [facility] Collection Date/Time: [facility] Results Received Date/Time: [facility] Reported Date/Time: Performed By: #### 9 68T, 90128H, %8293, 84286X, 6399, 496X #### [facility] Default [address] [place] [address] Neutrophils (Bld) [#/Vol] 3.835 10*3/uL Normal 2927-2047 [facility] Comment on above: Order Comment: [facility] Testing performed at: [employer], [employer] [facility], [address] , [address] [place] [address], [address] [place] [address], Stone Decorator: Gopal Hamilton MD [facility] Collection Date/Time: [facility] Results Received Date/Time: [facility] Reported Date/Time: Performed By: #### 9 68T, 84837F, %8293, 51306K, 6399, 496X #### [facility] Default [address] [place] [address] Neutrophils/100 WBC (Bld) 65 % Normal [facility] Specialist Comment on above: Order Comment: [facility] performed at: [employer], [employer] [facility], [address] , [address] [place] [address], [phone], Stone Decorator: Gopal Hamilton MD [facility] Collection Date/Time: [facility] Results Received Date/Time: [facility] Reported Date/Time: Performed By: #### 9 68T, 55427Z, %8293, 17538Y, 6399, 496X #### [facility] Default [address] [place] [address] Platelet mean volume (Bld) [Entitic vol] 9.3 fL Normal 7.5-12.5 [facility] Navigator Comment on above: Order Comment: [facility] Testing performed at: [employer], [employer] [facility], [address] , [address] [place] [address], [phone], Stone Decorator: Gopal Hamilton MD [facility] Collection Date/Time: [facility] Results Received Date/Time: [facility] Reported Date/Time: Performed By: #### 9 68T, 42574H, %8293, 27802M, 6399, 496X #### [facility] Default [address] [place] [address] Platelets (Bld) [#/Vol] 409 10*3/uL High 140-400 [facility] Navigator Comment on above: Order Comment: [facility] Testing performed at: [employer], [employer] [facility], [address] , [address] [place] [address], [address], Stone Decorator: Gopal Hamilton MD [facility] Collection Date/Time: [facility] Results Received Date/Time: [facility] Reported Date/Time: Performed By: #### 9 68T, 97853U, %8293, 32607Z, 6399, 496X #### [facility] Default [address] [place] [address] RBC (Bld) [#/Vol] 4.30 10*6/uL Normal 3.80-5.10 [facility] Comment on above: Order Comment: [facility] Testing performed at: [employer], [employer] [facility], [address] [facility], [address] [place] [address], [address] [place] [address], Stone Decorator: Gopal Hamilton MD [facility] Collection Date/Time: [facility] Results Received Date/Time: [facility] Reported Date/Time: [id number] Performed By: #### 9 68T, 57875J, %8293, 66980X, 6399, 496X #### [facility] Default [address] [place] [address] WBC (Bld) [#/Vol] 5.9 10*3/uL Normal 3.8-10.8 Jay gambino [facility] Comment on above: Order Comment: [facility] Testing performed at: [employer], [employer] [facility], [address] , [address] [place] [address], [address] [place] [address], Stone Decorator: Gopal Hamilton MD [facility] Collection Date/Time: [facility] Results Received Date/Time: [facility] Reported Date/Time: Performed By: #### 9 68T, 89297Q, %8293, 38467Y, 6399, 496X #### [facility] Default [address] [place] [address] Q - COMPREHENSIVE METABOLIC PANEL W/EGFRon 03-10-2022 Albumin [Mass/Vol] 4.3 g/dL Normal 3.6-5.1 Jay gambino [facility]igator Comment on above: Order Comment: [facility] performed at: [employer], [employer] [facility], [address] , [address] [place] [address], [address] [place] [address], Stone Decorator: Gopal Hamilton MD [facility] Collection Date/Time: [facility] Results Received Date/Time: [facility] Reported Date/Time: Performed By: #### 9 68T, 52111N, %8293, 36661J, 6399, 496X #### [facility] Default [address] [place] [address] Albumin/Globulin [Mass ratio] 1.7 {ratio} Normal 1.0-2.5 [facility] Navigator Comment on above: Order Comment: [facility] Testing performed at: [employer], [employer] [facility], [address] [place] [address], [address] [place] [address], [address] [place] [address], Stone Decorator: Gopal Hamilton MD [facility] Collection Date/Time: [facility] Results Received Date/Time: [facility] Reported Date/Time: Performed By: #### 9 68T, 21617Q, %8293, 90704Y, 6399, 496X #### [facility] Default [address] [place] [address] ALP [Catalytic activity/Vol] 134 U/L High 31-125 [facility] Navigator Comment on above: Order Comment: [facility] Testing performed at: [employer], [employer] [facility], [address] [place] [address], [address] [place] [address], [address] [place] [address], Stone Decorator: Gopal Hamilton MD [facility] Collection Date/Time: [facility] Results Received Date/Time: [facility] Reported Date/Time: Performed By: #### 9 68T, 51258B, %8293, 51074C, 6399, 496X #### [facility] Default [address] [place] [address] ALT [Catalytic activity/Vol] 41 U/L High 6-29 [facility] Navigator Comment on above: Order Comment: [facility] Testing performed at: [employer], [employer] [facility], [address] [place] [address], [address] [place] [address], [address] [place] [address], Stone Decorator: Gopal Hamilton MD [facility] Collection Date/Time: [id number] [facility] Results Received Date/Time: [facility] Reported Date/Time: Performed By: #### 9 68T, 22858K, %8293, 41814F, 6399, 496X #### [facility] Default [address] [place] [address] AST [Catalytic activity/Vol] 33 U/L Normal 10-35 [facility] Navigator Comment on above: Order Comment: [facility] Testing performed at: [employer], [employer] [facility], [address] [facility], [address] [place] [address], [address] [place] [address], Stone Decorator: Gopal Hamilton MD [facility] Collection Date/Time: [facility] Results Received Date/Time: [facility] Reported Date/Time: Performed By: #### 9 68T, 24646Z, %8293, 35040R, 6399, 496X #### [facility] Default [address] [place] [address] BUN/CREA 17 NOT APPLICABLE Normal 6-22 [facility] Comment on above: Order Comment: [facility] Testing performed at: [employer], [employer] [facility], [address] [facility], [address] [place] [address], [address] [place] [address], Stone Decorator: Gopal Hamilton MD [facility] Collection Date/Time: [facility] Results Received Date/Time: [facility] Reported Date/Time: Performed By: #### 9 68T, 17474W, %8293, 87215W, 6399, 496X #### [facility] Default [address] [place] [address] Calcium [Mass/Vol] 9.6 mg/dL Normal 8.6-10.2 [facility] Specialist Comment on above: Order Comment: [facility] Testing performed at: [employer], [employer] [facility], [address] [facility], [address] [place] [address], [address] [place] [address], Stone Decorator: Gopal Hamilton MD [facility] Collection Date/Time: [facility] Results Received Date/Time: [facility] Reported Date/Time: Performed By: #### 9 68T, 18642T, %8293, 74330E, 6399, 496X #### [facility] Default [address] [place] [address] Chloride [Moles/Vol] 103 mmol/L Normal 98-110 [facility] Specialist Comment on above: Order Comment: [facility] Testing performed at: [employer], [employer] [facility], [address] [facility], [address] [place] [address], [address] [place] [address], Stone Decorator: Gopal Hamilton MD [facility] Collection Date/Time: [facility] Results Received Date/Time: [facility] Reported Date/Time: Performed By: #### 9 68T, 28024Q, %8293, 65958W, 6399, 496X #### [facility] Default [address] [place] [address] CO2 [Moles/Vol] 27 mmol/L Normal 20-32 [facility] Comment on above: Order Comment: [facility] Testing performed at: [employer], [employer] [facility], [address] [facility], [address] [place] [address], [address] [place] [address], Stone Decorator: Gopal Hamilton MD [facility] Collection Date/Time: [facility] Results Received Date/Time: [facility] Reported Date/Time: Performed By: #### 9 68T, 89649M, %8293, 82473L, 6399, 496X #### [facility] Default [address] [place] [address] Creatinine [Mass/Vol] 0.65 mg/dL Normal 0.50-1.10 [facility] Specialist Comment on above: Order Comment: [facility] Testing performed at: [employer], [employer] [facility], [address] [facility], [address] [place] [address], [address] [place] [address], Stone Decorator: Gopal Hamilton MD [facility] Collection Date/Time: [facility] Results Received Date/Time: [facility] Reported Date/Time: Performed By: #### 9 68T, 72826X, %8293, 42772K, 6399, 496X #### [facility] Default [address] [place] [address] eGFRAA ([facility]) 121 mL/min/1.73m2 Normal > OR = 60 [facility] Comment on above: Order Comment: [facility] Testing performed at: [employer], [employer] [facility], [address] [facility], [address] [place] [address], [address] [place] [address], Stone Decorator: Gopal Hamilton MD [facility] Collection Date/Time: [facility] Results Received Date/Time: [facility] Reported Date/Time: Performed By: #### 9 68T, 11590V, %8293, 44789Z, 6399, 496X #### [facility] Default [address] [place] [address] eGFRNAA (Quest) 104 mL/min/1.73m2 Normal > OR = 60 No [facility] Comment on above: Order Comment: [facility] Testing performed at: [employer], [employer] [facility], [address] [facility], [address] [place] [address], [address] [place] [address], Stone Decorator: Gopal Hamilton MD [facility] Collection Date/Time: [facility] Results Received Date/Time: [facility] Reported Date/Time: Performed By: #### 9 68T, 41858L, %8293, 67256Q, 6399, 496X #### [facility] Default [address] [place] [address] Globulin (S) [Mass/Vol] 2.5 g/dL Normal 1.9-3.7 [facility] Navigator Comment on above: Order Comment: [facility] Testing performed at: [employer], [employer] [facility], [address] [place] [address], [address] [place] [address], [address] [place] [address], Stone Decorator: Gopal Hamilton MD [facility] Collection Date/Time: [facility] Results Received Date/Time: [facility] Reported Date/Time: Performed By: #### 9 68T, 76052C, %8293, 57984L, 6399, 496X #### [facility] Default [address] [place] [address] Glucose [Mass/Vol] 94 mg/dL Normal 65-99 Jay gambino [facility]igator Comment on above: Order Comment: [facility] Testing performed at: [employer], [employer] [facility], [address] [place] [address], [address] [place] [address], [phone], Stone Decorator: Gopal Hamilton MD [facility] Collection Date/Time: [facility] Results Received Date/Time: [facility] Reported Date/Time: Result Comment: Fasting reference interval Performed By: #### 9 68T, 20119L, %8293, 91689P, 6399, 496X #### [facility] Default [address] [place] [address] Potassium [Moles/Vol] 4.4 mmol/L Normal 3.5-5.3 Venita larson [facility]igator Comment on above: Order Comment: [facility] Testing performed at: [employer], [employer] [facility], [address] [place] [address], [address] [place] [address], [phone], Stone Decorator: Gopal Hamilton MD [facility] Collection Date/Time: [facility] Results Received Date/Time: [facility] Reported Date/Time: Performed By: #### 9 68T, 62826Y, %8293, 77469W, 6399, 496X #### [facility] Default [address] [place] [address] Protein [Mass/Vol] 6.8 g/dL Normal 6.1-8.1 Jay gambino [facility] Comment on above: Order Comment: [facility] performed at: [employer], [employer] [facility], [address] [place] [address], [address] [place] [address], [phone], Stone Decorator: Gopal Hamilton MD [facility] Collection Date/Time: [facility] Results Received Date/Time: [facility] Reported Date/Time: Performed By: #### 9 68T, 29137M, %8293, 44179O, 6399, 496X #### [facility] Default [address] [place] [address] Sodium [Moles/Vol] 138 mmol/L Normal 135-146 [facility] Comment on above: Order Comment: [facility] Testing performed at: [employer], [employer] [facility], [address] [place] [address], [address] [place] [address], [address] [place] [address], Stone Decorator: Gopal Hamilton MD [facility] Collection Date/Time: [facility] Results Received Date/Time: [facility] Reported Date/Time: Performed By: #### 9 68T, 50913V, %8293, 60236C, 6399, 496X #### [facility] Default [address] [place] [address] TBIL <0.3 Normal 0.2-1.2 [facility] Specialist Comment on above: Order Comment: [facility] Testing performed at: [employer], [employer] [facility], [address] [place] [address], [address] [place] [address], [address] [place] [address], Stone Decorator: Gopal Hamilton MD [facility] Collection Date/Time: [facility] Results Received Date/Time: [facility] Reported Date/Time: Performed By: #### 9 68T, 97449U, %8293, 86806X, 6399, 496X #### [facility] Default [address] [place] [address] Urea nitrogen [Mass/Vol] 11 mg/dL Normal 7-25 [facility] Navigator Comment on above: Order Comment: [facility] performed at: [employer], [employer] [facility], [address] [place] [address], [address] [place] [address], [phone], Stone Decorator: Gopal Hamilton MD [facility] Collection Date/Time: [facility] Results Received Date/Time: [facility] Reported Date/Time: Performed By: #### 9 68T, 30199F, %8293, 47827J, 6399, 496X #### [facility] Default [address] [place] [address] Q - DLDL REFLEXon 03-10-2022 Cholesterol in LDL [Mass/Vol] 87 mg/dL Normal <100 [facility] Navigator Comment on above: Order Comment: [facility] Testing performed at: [employer] [facility], [address] [place] [address], [address] [place] [address], [address] [place] [address], Stone Decorator: Gopal Hamilton MD [facility] Collection Date/Time: [facility] Results Received Date/Time: [facility] Reported Date/Time: Result Comment: Desirable range <100 mg/dL for primary prevention; <70 mg/dL for patients with CHD or diabetic patients with > or = 2 CHD risk factors. Performed By: #### 9 68T, 00753A, %8293, 05381K, 6399, 496X #### [facility] Default [address] [place] [address] Q - HEMOGLOBIN A1Con 022 HEMOGLOBIN A1c 5.0 % of total Hgb Normal <5.[address] [facility] Comment on above: Order Comment: [facility] performed at: [employer] [facility], [address] [place] [address], [address] [place] [address], [phone], Stone Decorator: Gopal Hamilton MD [facility] Collection Date/Time: [facility] [...] diagnosis of diabetes in children. According to [employer] (ADA) guidelines, hemoglobin A1c <7.0% represents optimal control in non- diabetic patients. Different metrics may apply to specific patient populations. Standards of Medical Care in Diabetes(ADA). Performed By: #### 9 68T, 13942B, %8293, 80705D, 6399, 496X #### [facility] Default [address] [place] [address] Q - Lipid Panelon 03-10-2022 Cholesterol [Mass/Vol] 230 mg/dL High <200 No [facility] Comment on above: Order Comment: [facility] performed at: [employer] [facility], [address] [place] [address], [address] [place] [address], [phone], Stone Decorator: Gopal Hamilton MD [facility] Collection Date/Time: [facility] Results Received Date/Time: [facility] Reported Date/Time: Performed By: #### 9 68T, 56473G, %8293, 44066H, 6399, 496X #### [facility] Default [address] [place] [address] Cholesterol in HDL [Mass/Vol] 52 mg/dL Normal > OR = 50 [facility] Specialist Comment on above: Order Comment: [facility] performed at: [employer] [facility], [address] [place] [address], [address] [place] [address], [phone], Stone Decorator: Gopal Hamilton MD [facility] Collection Date/Time: [id number] [facility] Results Received Date/Time: [facility] Reported Date/Time: Performed By: #### 9 68T, 70084A, %8293, 16212F, 6399, 496X #### [facility] Default [address] [place] [address] Cholesterol.total/Chol esterol in HDL [Mass ratio] 4.4 {ratio} Normal <5.0 [facility] Navigator Comment on above: Order Comment: [facility] performed at: [employer], [employer] [facility], [address], [address] [place], [place], [address] [place] [address], Stone Decorator: Gopal Hamilton MD [facility] Collection Date/Time: [facility] Results Received Date/Time: [facility] Reported Date/Time: Performed By: #### 9 68T, 31664K, %8293, 12608W, 6399, 496X #### [facility] Default [address] [place] [address] LDLD SEE NOTE Normal [facility] Navigator Comment on above: Order Comment: [facility] performed at: [employer], [employer] [facility], [address] , [address] [place], [address], Stone Decorator: Gopal Hamilton MD [facility] Date/Time: [facility] [...] LDL-C. Estevan SCHILLING et al. ZANA. 2013;310(19): 2565-2923 (http://[email or web address].Wysada.com/faq/KLN968) Performed By: #### 9 68T, 34887K, %8293, 26279Z, 6399, 496X #### [facility] Default [address] [place] [address] NON HDL CHOLESTEROL 178 mg/dL (calc) High <130 [facility] Navigator Comment on above: Order Comment: [facility] Testing performed at: [employer] [facility], [address], [address] [place], [phone], Stone Decorator: Gopal Hamilton MD [facility] Collection Date/Time: [id number] [facility] Results Received Date/Time: [facility] Reported Date/Time: Result Comment: For patients with diabetes plus 1 major ASCVD risk factor, treating to a non-HDL-C goal of <100 mg/dL (LDL-C of <70 mg/dL) is considered a therapeutic option. Performed By: #### 9 68T, 34700W, %8293, 08627S, 6399, 496X #### [facility] [address] [place] [address] Triglyceride [Mass/Vol] 410 mg/dL High <150 [facility] Navigator Comment on above: Order Comment: [facility] performed at: [employer] [facility], [address] [facility], [address] [place] [address], [phone], Stone Decorator: Gopal Hamilton MD [facility] Collection Date/Time: [facility] Results Received Date/Time: [facility] Reported Date/Time: Result Comment: If a non-fasting specimen was collected, consider repeat triglyceride testing on a fasting specimen if clinically indicated. João et al. J. of Clin. Lipidol. 2015;9:129-169. Performed By: #### 9 68T, 81002S, %8293, 37340T, 6399, 496X #### [facility] [address] [place] [address] Q - TROPONIN Ion 03-10-2022 TROPONIN I 3 ng/L Normal < OR = 47 [facility] Specialist Comment on above: Order Comment: [facility] Testing performed at: [employer] [facility], [address] [facility], [address] [place] [address], [phone], Stone Decorator: Gopal Hamilton MD [facility] Collection Date/Time: [facility] Results Received Date/Time: [facility] Reported Date/Time: Result Comment: In accord with published recommendations, serial testing of troponin I at intervals of 2 to 4 hours for up to 12 to 24 hours is suggested in order to corroborate a single troponin I result. An elevated troponin alone is not sufficient to make the diagnosis of NM. Performed By: #### 9 68T, 66720Z, %8293, 34883P, 6399, 496X #### [facility] [address] [place] [address] UA DIP, URINE (POC)on 2021 BILIRUBIN UA (POCT) Negative Negative [facility] CLARITY UA (POCT) Clear [facility] COLOR UA (POCT) Yellow [facility] GLUCOSE UA (POCT) Negative Negative mg/dL [facility] HEMOGLOBIN/BLOOD UA (POCT) Negative Negative [facility] KETONE UA (POCT) Negative Negative mg/dL [facility] LEUKOCYTES UA (POCT) Negative Negative [facility] NITRITE UA (POCT) Negative Negative [facility] PH UA (POCT) 5.0 4.5 - 8.0 [facility] Protein Ql (U) Trace Abnormal Negative mg/dL [facility] SPECIFIC GRAVITY UA (POCT) >=1.030 1.005 - 1.030 [facility] UROBILINOGEN UA (POCT) 0.2 E.U./dL Brenda l E.U./dL [facility] CNTHERAPYon 01-31-2022 CNTHERAPY OT/PT/Speech Visit (PTLHO) ----- MARY LEAL ([id number]) 1970 F Date Time Provider Department 01/31/22 10:30 AM NEWTON WOODWARD PTKALEIGH Date Time Provider Department [facility] 01/31/2022 10:30 AM [id number], JILL PTLSAVANNAH [facility] Reason for Visit: Physical Therapy [503] [...] (FLONASE) 50 mcg/actuation nasal spray Use 1 [place] in each nostril once daily. - carBAMazepine [...] by mouth every morning BEFORE BREAKFAST - yjyjddlxvgb-cawianfjk-czg anter (TRELEGY ELLIPTA) 100-62.5-25 mcg Inhale 1 Puff as instructed once daily. - atenolol (TENORMIN) 50 mg tablet Take 50 mg by mouth once daily. ----- [facility] CNTHERAPYon 01-24-2022 CNTHERAPY OT/PT/Speech Visit (PTLHO) ----- MARY LEAL ([id number]) 1970 F Date Time Provider Department 01/24/22 10:30 AM NEWTON WOODWARD Date Time Provider Department [facility] 01/24/2022 10:30 AM [id number], [facility] Reason for Visit: Physical Therapy [503] [...] (FLONASE) 50 mcg/actuation nasal spray Use 1 [place] in each nostril once daily. - carBAMazepine [...] by mouth every morning BEFORE BREAKFAST - vowxyuyaync-wqsfutnas-eaj anter (TRELEGY ELLIPTA) 100-62.5-25 mcg Inhale 1 Puff as instructed once daily. - atenolol (TENORMIN) 50 mg tablet Take 50 mg by mouth once daily. ----- [facility] CNTHERAPYon 01-18-2022 CNTHERAPY OT/PT/Speech Visit (PTLHO) ----- MARY LEAL ([id number]) 1970 F Date Time Provider Department 01/18/22 12:15 PM JESSI ISAACS PTKALEIGH Date Time Provider Department [facility] 01/18/2022 12:15 PM [id number], KATHRYN PTSAVANNAH [facility] Reason for Visit: PT Eval [747] [...] (FLONASE) 50 mcg/actuation nasal spray Use 1 [place] in each nostril once daily. - carBAMazepine [...] by mouth every morning BEFORE BREAKFAST - lloerkzaekj-epvqyybyr-wpc anter (TRELEGY ELLIPTA) 100-62.5-25 mcg Inhale 1 Puff as instructed once daily. - atenolol (TENORMIN) 50 mg tablet Take 50 mg by mouth once daily. ----- [facility] HNO ID: [id number] Author: Sonido Owen MD Service: Colorectal Author [...] the PACU and was transferred to the [facility]. Postoperatively, the patient recovered well. Her [...] mg Finesse (more content not included)... Normal [facility] CONSULTon 12-27-2021 CONSULT HNO ID: [id number] Author: Dai Hines RN Service: Wound/Ostomy Author Type: Registered Nurse Type: Consults Filed: 12/27/2021 3:32 PM Note Text: STOMA CARE POST-OPERATIVE ASSESSMENT AND PATIENT EDUCATION Patient Name: Mary Leal Date: December 27, 2021 Time: 3:20 PM ET Care Outcome: Ms. Leal was seen today on the [facility] for ostomy education and a pouch change lesson. ET's Next Scheduled Visit: Complete. STOMA ASSESSMENT Stoma type: Loop ileostomy Diameter: 35 mm with and extra 1 mm cut on the medial side of the pouch. Location: RLQ Protrusion: Budded, Os points downward Mucosal condition and color: Red and [place] and moist. Boni: No Mucocutaneous Junction: Intact [...] one piece cut to fit drainable pouch (#78292) and Coloplast Brava moldable ring (2mm) #[id number]. Brava barrier strips, product # [id number] applied around the border of the pouch. INCISION Degree of approximation: 100% Approximating devices: Surgical Glue Drainage: None Method of Management: DATA COMMUNICATIONS ANALYST Time Increment: 45 minutes Comments: NA Supplies [...] outs: Referral Recommendation: Home Health Agency SIGNATURE: Dai FRIEDMANN RN NIKOLEN CWJOE This is an electronically created document. IF PRINTED, PLEASE DO NOT REMOVE FROM THE CHART OR MODIFY PRINTED COPY. Normal [facility] NURSING PROGon 12-27-2021 NURSING PROG HNO ID: [id number] Author: Marizol Hankins RN Service: ? Author Type: Registered Nurse Type: Nursing Progress Note Filed: 12/27/2021 4:39 PM Note Text: Nursing Progress Note Patient Name: Mary Leal Patient Location: [place] [address] [address] Daily Note: Pt AANDO x 3. Lap site DATA COMMUNICATIONS ANALYST with glue, no drainage. Pt on GI [...] This note was completed by: Marizol Hankins [facility] NUTRITIONon 12-27-2021 NUTRITION HNO ID: [id number] Author: Merced Morales DTR Service: Nutrition Therapy Author Type: English Composition Teacher Type: Nutrition Filed: 12/27/2021 12:16 PM Note Text: NUTRITION THERAPY CAD TECHNICIAN NOTE SERVICE DATE: 12/27/2021 SERVICE TIME: 10:00 AM Visit Type: Length of Stay;Diet Education Plan of Care: Supplements: Powerade Zero Oral Rehydration Solution;Impact AR Follow-Up: [facility] Reassessment Nursing Admission Assessment Malnutrition Score: [...] DATE: December 27, 2021 TIME: 12:15 PM [facility] PT EDon 12-27-2021 PT ED HNO ID: [id number] Author: Merced Morales DTR Service: Nutrition Therapy Author Type: English Composition Teacher Type: Patient Education Filed: 12/27/2021 12:16 [...] 27, 2021 TIME: 12:16 PM PAGER: Normal [facility] Basic Metabolic Panlon 12-26 Anion gap [Moles/Vol] 9 mmol/L Normal 9-18 [facility] Comment on above: Performed By: #### B MP #### [place] [phone] Calcium [Mass/Vol] 8.5 mg/dL Normal 8.5-10.5 [facility] Comment on above: Performed By: #### B MP #### [phone] Chloride [Moles/Vol] 102 mmol/L Normal 98-110 [facility] Comment on above: Performed By: #### B MP #### [place] [phone] CO2 [Moles/Vol] 28 mmol/L Normal 23-32 [facility] Comment on above: Performed By: #### B MP #### [place] [phone] Creatinine [Mass/Vol] 0.62 mg/dL Low 0.70-1.40 [facility] Comment on above: Performed By: #### B MP #### [place] [address] eGFR- Amer. >60 Normal >59 [facility] Comment on above: Performed By: #### B MP #### [place] [phone] eGFR-All Other Races >60 Normal >59 [facility] Comment on above: Result Comment: eGFR [...] [email or web address]. Performed By: #### B MP #### [place] [phone] Glucose [Mass/Vol] 71 mg/dL Normal 65-100 [facility] Comment on above: Performed By: #### B MP #### [place] [address] Potassium [Moles/Vol] 4.0 mmol/L Normal 3.5-5.0 [facility] Comment on above: Performed By: #### B MP #### [place] [phone] Sodium [Moles/Vol] 139 mmol/L Normal 132-148 [facility] Comment on above: Performed By: #### B MP #### [place] [phone] Urea nitrogen [Mass/Vol] 10 mg/dL Normal 8- [facility] Comment on above: Performed By: #### B #### [place] [id number] [place] [address] NURSING PROGon 12-26-2021 NURSING PROG HNO ID: [id number] Author: Dipti Crowely RN Service: Nursing Author Type: Registered Nurse Type: Nursing Progress Note Filed: 12/26/2021 5:25 PM Note Text: Nursing Progress Note Patient Name: Mary Leal Patient Location: /MP2B-75 Daily Note: Call discontinued as directed in orders. 700cc output from call. 250cc NS instilled and then call catheter removed. Patient assisted to BSC and voided 200cc pink tinged urine. Patient assisted back to bed, not wanting to go to chair. Call light in reach. This note was completed by: Dipti Crowley [facility] NURSING PROG HNO ID: [id number] Author: Dipti Crowley RN Service: Nursing Author Type: Registered Nurse Type: Nursing Progress Note Filed: 12/26/2021 3:51 PM Note Text: Nursing Progress Note Patient Name: Mary Leal Patient Location: /GR5R-09 Daily Note: Patient AANDOx3. VSS. 2L NC POx. IVF infusing as ordered. Dilaudid MANAGER OPERATING, OXY IR on for pain. Patient drowsy yet easily arousable. Lap sites and transverse incision DATA COMMUNICATIONS ANALYST with glue. Ileostomy draining liquid brown. Call draining clear yellow. PAS on. No edema. Fa,saman at bed side. Call light in reach. This note was completed by: Dipti Crowley Normal [facility] Basic Metabolic Panlon 12-25 Anion gap [Moles/Vol] 9 mmol/L Normal 9-18 [facility] Comment on above: Performed By: #### B MP #### [place] [phone] Calcium [Mass/Vol] 8.5 mg/dL Normal 8.5-10.5 [facility] Comment on above: Performed By: #### B MP #### [place] [phone] Chloride [Moles/Vol] 104 mmol/L Normal 98-110 [facility] Comment on above: Performed By: #### B MP #### [place] [phone] CO2 [Moles/Vol] 28 mmol/L Normal 23-32 [facility] Comment on above: Performed By: #### B MP #### [place] [phone] Creatinine [Mass/Vol] 0.72 mg/dL Normal 0.70-1.40 [facility] Comment on above: Performed By: #### B MP #### [place] [phone] eGFR- Amer. >60 Normal >59 [facility] Comment on above: Performed By: #### B MP #### [place] [phone] eGFR-All Other Races >60 Normal >59 [facility] Comment on above: Result Comment: eGFR [...] [email or web address]/gfr_[email or web address]. Performed By: #### B MP #### [place] [phone] Glucose [Mass/Vol] 91 mg/dL Normal 65-100 [facility] Comment on above: Performed By: #### B MP #### [place] [phone] Potassium [Moles/Vol] 4.0 mmol/L Normal 3.5-5.0 [facility] Comment on above: Performed By: #### B MP #### [place] [phone] Sodium [Moles/Vol] 141 mmol/L Normal 132-148 [facility] Comment on above: Performed By: #### B MP #### [place] [phone] Urea nitrogen [Mass/Vol] 12 mg/dL Normal 8-25 [facility] Comment on above: Performed By: #### B MP #### [place] [phone] CASE MGT INIT ASSESon 2021 CASE MGT INIT ASSES HNO ID: [id number] Author: TITO Whitt Service: ? 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 Last discharge within 30 days: No Advance Directive: Current Advance Directive: Health Care Power of Metalsmith Helper In Chart: No Health LiteracyHow often do [...] None Has the Patient Been in a Prison Facility in the Past 30 days?: No [...] Completely I feel financially burdened by my rzm-ox-jlwfpf expenses for my prescription medication:: 0 - Disagree Completely Risk Score: 0 Patient is categorized as: Low risk < 2 Are you interested in bedside delivery of your medications? Yes Is Patient Psychosocially Complex?: No ASSESSMENT AND PLAN: Medical Needs: Medical Needs: None Psychosocial Needs: Psychosocial Needs: None FREEDOM OF CHOICE EXPLAINED: Shafer of Choice Given: Yes Level of Care Discussed: Home Care Financial Disclosure Provided: Yes Financial Disclosure Comments: careport Provider List: Home Care Provider list within the patient's requested geographic area shared with the patient/family: Yes within: 15 miles of zip code: [address] Quality and resource use metrics shared with [...] bedside with pt during assessment. Charo Obando [phone]. Home care referrals sent. Daughter to transport at time of discharge. SIGNATURE: TITO Whitt PATIENT NAME: Mary Leal DATE: December 25, 2021 TIME: 11:39 AM PAGER/CONTACT #: [phone] Normal [facility] CBC and Differentialon 12-25 Abs Baso 0.03 k/uL Normal <0.11 [facility] Comment on above: Performed By: #### 5 7021-8 #### [facility] CLIA [id number] [address] [place] [address] [place] Abs [place] 0.45 k/uL Normal <0.87 [facility] Comment on above: Performed By: #### 5 7021-8 #### [facility] CLIA [id number] [address] [place] [address] [place] Abs Neut 3.85 k/uL Normal 1.45-7.50 [facility] Comment on above: Performed By: #### 5 7021-8 #### [facility] CLIA [id number] [address] [place] [address] [place] Absolute nRBC <0.01 Normal <0.01 [facility] Comment on above: Performed By: #### 5 7021-8 #### [facility] CLIA [id number] [place] [address] [place] Basophils/100 WBC (Bld) 0.5 % Normal [facility] Comment on above: Performed By: #### 5 7021-8 #### [facility] CLIA [id number] [address] [place] [address] [place] DTYPE Auto Diff Normal [facility] Comment on above: Performed By: #### 5 7021-8 #### [facility] CLIA [id number] [address] [place] [address] [place] Eosinophils (Bld) [#/Vol] 0.14 10*3/uL Normal <0.46 [facility] Comment on above: Performed By: #### 5 7021-8 #### [facility] CLIA [id number] [address] [place] [address] [place] Eosinophils/100 WBC (Bld) 2.3 % Normal [facility] Comment on above: Performed By: #### 5 7021-8 #### [facility] CLIA [id number] [address] [place] [address] [place] Erythrocyte distribution width (RBC) [Ratio] 11.6 % Normal 11.5-15.0 [facility] Comment on above: Performed By: #### 7021-8 #### [facility] CLIA [id number] [address] [place] [address] [place] Hematocrit (Bld) [Volume fraction] 35.2 % Low 36.0-46.0 [facility] Comment on above: Performed By: #### 5 7021-8 #### [facility] CLIA [id number] [address] [place] [address] [place] Hemoglobin (Bld) [Mass/Vol] 11.6 g/dL Normal 11.5-15.5 [facility] Comment on above: Performed By: #### 5 7021-8 #### [facility] CLIA [id number] [address] [place] [address] [place] Lymphocytes (Bld) [#/Vol] 1.47 10*3/uL Normal 1.00-4.00 [facility] Comment on above: Performed By: #### 5 7021-8 #### [facility] CLIA [id number] [place] [address] [place] Lymphocytes/100 WBC (Bld) 24.7 % Normal [facility] Comment on above: Performed By: #### 5 7021-8 #### [facility] CLIA [id number] [place] [address] [place] MCH 29.5 pG Normal 26.0-34.0 [facility] Comment on above: Performed By: #### 5 7021-8 #### [facility] CLIA [id number] [address] [place] [address] [place] MCHC (RBC) [Mass/Vol] 33.0 g/dL Normal 30.5-36.0 [facility] Comment on above: Performed By: #### 5 7021-8 #### [facility] CLIA [id number] [address] [place] [address] [place] MCV (RBC) [Entitic vol] 89.6 fL Normal 80.0-100.0 [facility] Comment on above: Performed By: #### 5 7021-8 #### [facility] CLIA [id number] [address] [place] [address] [place] Monocytes/100 WBC (Bld) 7.6 % Normal [facility] Comment on above: Performed By: #### 5 7021-8 #### [facility] CLIA [id number] [address] [place] [address] [place] Neutrophils/100 WBC (Bld) 64.9 % Normal [facility] Comment on above: Performed By: #### 5 7021-8 #### [facility] CLIA [id number] [address] [place] [address] [place] NRBCs 0.0 /100 WBC Normal 0 [facility] Comment on above: Performed By: #### 5 7021-8 #### [facility] CLIA [id number] [address] [place] [address] [place] Platelet mean volume (Bld) [Entitic vol] 9.0 fL Normal 9.0-12.7 [facility] Comment on above: Performed By: #### 5 7021-8 #### [facility] CLIA [id number] [address] [place] [address] [place] Platelets (Bld) [#/Vol] 271 10*3/uL Normal 150-400 [facility] Comment on above: Performed By: #### 5 7021-8 #### [facility] CLIA [id number] [address] [place] [address] [facility] OF [place] RBC (Bld) [#/Vol] 3.93 10*6/uL Normal 3.90-5.20 [facility] Comment on above: Performed By: #### 5 7021-8 #### [facility] CLIA [id number] [place] [address] WBC (Bld) [#/Vol] 5.96 10*3/uL Normal 3.70-11.00 [facility] Comment on above: Performed By: #### 5 7021-8 #### [facility] CLIA [id number] [address] [place] [address] CONSULTon 12-25-2021 CONSULT HNO ID: [id number] Author: Tri Kowalski APRN.GRAPHIC SPECIALIST Service: Wound/Ostomy Author Type: Nurse Practitioner Type: Consults Filed: 12/25/2021 11:37 AM Note Text: OSTOMY SERVICE CONSULT PUBLISHING SPECIALIST SERVICE DATE: 12/25/2021 SERVICE TIME: 1015 Consultation [...] mL 20 mEq INTRAVENOUS PRN - HYDROmorphone MANAGER OPERATING 0.5 mg/mL in NaCl 0.9% 100 mL [...] discharge with h (more content not included)... [facility] NURSING PROGon 12-25-2021 NURSING PROG HNO ID: [id number] Author: Marilyn Henning RN Service: ? Author Type: Registered Nurse Type: Nursing Progress Note Filed: 12/25/2021 7:01 PM Note Text: Nursing Progress Note Patient Name: Mary Leal Patient Location: [facility]/DM4S-42 Daily Note: 0930 Pt AANDOx3. Lap sites intact. ABD tender. MANAGER OPERATING pump running. Stoma beefy red, dark brown liquid output. Pt stated that the eye pressure felt overnite has resolved. Call remains in place until OBGYN sees pt 12/26. Pt requesting PO pain medication. 1100 Pt up to chair. [address] Ontiveros bedside. 5mg oxy ordered q4 PRN. This note was completed by: Marilyn Henning [facility] NURSING PROG HNO ID: [id number] Author: Beto Ford, MAKI Service: ? Author Type: Registered Nurse Type: Nursing Progress Note Filed: 12/25/2021 6:12 AM Note Text: Nursing Progress Note Patient Name: Mary Leal Patient Location: / Daily Note: Pt has been complaining of [...] of BS. This note was completed by: Beto Ford [facility] ANES POSTPROC EVALon 022 ANES POSTPROC EVAL HNO ID: [id number] Author: Charisse Aggarwal MD Service: Anesthesiology Author [...] December 24, 2021 TIME: 4:17 PM CSN: [id number] [facility] ANES PRE-OPon 12-24-2021 ANES PRE-OP HNO ID: [id number] Author: Chayito Ojeda MD Service: Anesthesiology Author Type: Anesthesiologist Type: Anesthesia Preprocedure Evaluation Filed: 12/24/2021 7:27 AM Note Text: ANESTHESIOLOGY DAY OF SURGERY NOTE : 1970 Procedure Information Date/Time: 12/24/21730 Procedures: PROCTOPEXY LAPAROSCOPIC (N/A Abdomen) - Laparoscopic [...] 11pm the evening prior to surgery. - pyiwohzjpkn-dorolzbuh-ukr anter (TRELEGY ELLIPTA) 100-62.5-25 mcg Inhale 1 [...] December 24, 2021 TIME: 7:27 AM CSN: [id number] [facility] BRIEF OP NOTon 12-24-2021 BRIEF OP NOT HNO ID: [id number] Author: Jenifer Ayala MD Service: Colorectal Author Type: Fellow Type: Brief Op Note Filed: 12/24/2021 12:16 PM Note Text: BRIEF OPERATIVE NOTE - COLORECTAL SURGERY Log ID: [id number] Surgery/Procedure Date: 12/24/2021 Incision/Procedure Start Time: 8:50 AM Incision Close/Procedure End Time: Surgeon(s) and Blocking Machine Operator(s): Surgeon(s) and Role: Panel 1: * Mayr Obrien MD - Primary * Jenifer Ayala [...] December 24, 2021 TIME: 12:10 PM Normal [facility] NURSING PROGon 12-24-2021 NURSING PROG HNO ID: [id number] Author: Marilyn Henning RN Service: ? Author Type: Registered Nurse Type: Nursing Progress Note Filed: 12/24/2021 6:36 PM Note Text: Nursing Progress Note Patient Name: Mary Leal Patient Location: [address] Daily Note: 1816 Pt arrived on floor with 100.2F temperature. Scheduled tylenol administered. Temperature 98.6 at 1816. Surgical incisions ELENI with glue, intact. Ostomy beefy red, producing sweat. Call remains in place. Pt Educated on MANAGER OPERATING pump usage. Daughter bedside. Bed low and locked. This note was completed by: [facility] NURSING PROG HNO ID: [id number] Author: Marilyn Henning RN Service: ? Author Type: Registered Nurse Type: Nursing Progress Note Filed: 12/24/2021 4:19 PM Note Text: Nursing Progress Note Patient Name: Mary Leal Patient Location: [place] [address]/[address] Transfer Note: Patient transferred into room/unit PK3-33 in stable condition. Actions taken: No futher actions taken at this time. Will continue to monitor and check with patient. This note was completed by: Marilyn [facility] NURSING PROG HNO ID: [id number] Author: Dianelys Lopez RN Service: Nursing Author Type: Registered Nurse Type: Nursing Progress Note Filed: 12/24/2021 6:30 AM Note Text: PATIENT EDUCATION TOPIC: PROCEDURE / SURGERY: Pre-op Teaching: Protocols PATIENT NAME: Mayr Leal PATIENT LOCATION: [facility]/ OR POOL READINESS TO LEARN COGNITIVE ABILITY: [...] (RECOMMENDATION): None Electronically Signed By: Dianelys Lopez [facility] OPERATIVE NOon 12-24-2021 OPERATIVE NO HNO ID: [id number] Author: Mary Obrien MD Service: Colorectal Author Type: Physician Type: Operative Report Filed: 12/24/2021 12:34 PM Note Text: COLON AND RECTAL SURGERY OPERATIVE REPORT PATIENT NAME: Mary Leal ADMISSION DATE: 12/24/2021 LOG ID: [id number] SURGERY/PROCEDURE DATE: 12/24/2021 INCISION/PROCEDURE START TIME: 8:50 AM INCISION CLOSE/PROCEDURE END TIME: AGE: [age] year old SEX: female SURGEON(S)/PROCEDURALIST( S) AND MINE SAFETY DIRECTOR(S): Surgeon(s) and Role: Panel 1: * Mary [...] port site. This was ligated with a fhcwkn-bi-qsgek Vicryl suture and was confirmed to be [...] above. Mary Obrien, (more content not included)... [facility] OPERATIVE NO HNO ID: [id number] Author: Pam Wang MD Service: Urogynecology Author Type: Physician Type: Operative Report Filed: 12/28/2021 10:03 AM Note Text: OPERATIVE/PROCEDURE REPORT LOG ID: [id number] SURGERY/PROCEDURE DATE: 12/24/2021 INCISION/PROCEDURE START TIME: 8:50 AM INCISION CLOSE/PROCEDURE END TIME: 1:50 PM SURGEON(S)/PROCEDURALIST( S) AND MINE SAFETY DIRECTOR(S): Surgeon(s) and Role: Panel 1: * Mary [...] of the (more content not included)... [facility] Type and SCR (30D)on ABO/RH(D) Positive [facility] Comment on above: Performed By: #### T SCR30 ####[facility] [place] [address] Confirm Blood Typeon ABO/RH(D) Positive [facility] Comment on above: Performed By: #### C ONABO ####[facility] [place] [address] Type and SCR (30D)on ABO/RH(D) Positive [facility] Comment on above: Performed By: #### T SCR30 ####[place] [id number] [place] [address] Nonvisit Note - PTon Nonvisit Note - PT Chart reviewed with eval prepped for scheduled eval. [facility] Consenton 01-08-2021 Consent [id number]#1.00CD:1 27 [facility] Coding Summary.on 01-06-2021 Coding Summary. CODING DATE: [facility] STATUS: Home (Routine DC) PAYOR: Medicaid EAPG [...] Eileen Scott Date Saved: 01/06/2021 09:01 am [facility] Consent for Procedure/Surger yon 01-04-2021 Consent for Procedure/Surgery [id number]#1.00CD:1 27 [facility] Consent for Procedure/Surgery [id number]#1.00CD:1 27 [facility] Consent for Treatmenton - Consent for Treatment [id number]#1.00CD:12 7 [facility] Discharge Instructionson Discharge Instructions [id number]#1.00CD:1 27 [facility] Inpatient Patient Summaryon 01-04-2021 Inpatient Patient Summary [place] [address] Clinical Summary Person Information Name: MARY LEAL Age: 50 Years : 1970 Sex: Female PCP: Isatu GÓMEZ DO Marital Status: Race: White Ethnicity: Non- or Language: Welsh Visit Id: Visit Reason: MIXED INCONTINENCE Speciality: Acuity: Enc Type: Outpatient Med Service: Surgery Arrival: 01/04/2021 12:31:00 Discharge: Dispo Type: Address: [address] [place] [phone] Provider Notes: Diagnosis: Problems Active Decreased bladder [...] Assistance for Self-Care/Mobility: Cognitive Status: Allergies Poison brenda () oxyCODONE (Unknown) Percocet (Unknown) RisperDAL (Unknown) Laboratory or Other Results This Visit (last charted value for your 01/04/2021 visit) No Laboratory or Other Results This Visit Measurements: Height: 162 cm Weight: Blood Pressure: Not Valued / Not Valued BMI: Procedures No Procedures Documented Immunizations No Immunizations Documented This Visit Final Med List: acetaminophen-hydrocodone ([place] 5/325 Tab) By Mouth every 6 hours. [...] Follow up: With: Address: When: Clifford OCONNOR [address] [place] [address], [address], [place] [phone] [facility] (1) Within 2 weeks Comments: Call for followup appointment. Have a great day! Patient Education Information: EU - Cystoscopy with Botox Injection Discharge Instructions (Custom) [facility] IntraOperative Documentson 0 01-04-2021 IntraOperative Documents [id number]#1.00CD:1 27 [facility] IntraOperative Documents [id number]#1.00CD:1 27 [facility] Main OR Intraoperative Recor don 01-04-2021 Main OR Intraoperative Record IntraOp Document Type FTURO Summary Primary Physician: Clifford OCONNOR MD Finalized Date/Time: 01/04/21 13:27:05 Pt. Name: MARY LEAL/Sex: 1970 Female Med Rec #: [id number] Physician: Clifford OCONNOR MD Financial #: [id number] Pt. Type: O Room/Bed: / Admit/Disch: 01/04/21 12:31:00 - Institution: Case Times FTURO Entry 1 Patient Times In Room 01/04/21 13:07:00 Out Room 01/04/21 13:27:00 Procedure Times Start 01/04/21 13:19:00 Stop 01/04/21 13:23:00 Anesthesia Times Last Modified By: Niecy Tran RN 01/04/21 13:27:01 Case Attendance FTURO Entry 1 Entry 2 Entry 3 Case Attendee ANASTASIA BENSON, Clifford Dalton RETAIL PRODUCT DEMO SPECIALIST, Akin Mejias RETAIL PRODUCT DEMO SPECIALIST, Debi Chand Role Performed Surgeon - Primary [...] Case Attendee Niecy Tran RN Role Performed Flower Shop Manager - Primary Time In 01/04/21 13:07:00 Time Out 01/04/21 13:27:00 Procedure CYSTOSCOPY LOCAL BOTOX INJECTION(.) Comments Last Modified By: Niecy Tran RN 01/04/21 13:27:02 Surgical Procedures FTURO Entry 1 Procedure Description Procedure CYSTOSCOPY LOCAL BOTOX Modifiers . INJECTION Surgeon Description CYSTOSCOPY BOTOX 50 UNITS [address] NUMBER [id number] EXP DATE 08/2023 Primary Procedure Yes Primary [...] By: Niecy Tran RN 01/04/21 13:27 [facility] Main OR Preoperative Recordo n 01-04-2021 Main OR Preoperative Record Holding Area Document Type FTURO Summary Primary Physician: Clifford OCONNOR MD Finalized Date/Time: 01/04/21 13:05:55 Pt. Name: MARY LEAL /Sex: 1970 Female Med Rec #: [id number] Physician: Clifford OCONNOR MD Financial #: [id number] Pt. Type: O Room/Bed: / Admit/Disch: 01/04/21 [...] 12:46 Niecy Tran RN 01/04/21 13:05 [facility] Operative Reporton Operative Report Patient: ERNESTO [...] arranged, F/U in two weeks. . [facility] Comment on above: Result Comment: Elec tronically Signed By: Clifford OCONNOR MD\.br\Date and Time Signed: 01/04/21 13:30 EST Outpatient Surgery Discharge Instructionon 01-04-2021 Outpatient Surgery Discharge Instruction [place] [id number] Patient Discharge Instructions PERSON INFORMATION Name: DENVER LEALMIGUE Kenny Date of : 1970 Current Date: 01/04/2021 13:25:41 PHYSICIANS Admitting Physician: Clifford OCONNOR MD Comment: Discharge Diagnosis: DENVER LEALMIGUE Kenny has been given the following list of follow-up instructions, prescriptions, and patient education materials: IF UNABLE TO CONTACT YOUR PHYSICIAN AND YOU FEEL IT IS AN EMERGENCY, GO TO THE NEAREST EMERGENCY ROOM OR CALL 911 Follow up: With: Address: When: Clifford OCONNOR [address] [place] [address], [address], [place] [phone] [facility] (1) Within 2 weeks Comments: Call [...] Date You may receive a survey from [employer] asking you to rate your care experience. Your feedback is important and will help us understand what we do well and how we can improve the quality of care we provide to you, your loved ones and our community. It?s an honor to serve you. Thank you for choosing [facility] PT - Assessmentson 1 PT - Assessments [id number]#1.00CD:1 27 [facility] Ambulatory Clinical Summaryo n 11-11-2020 Ambulatory Clinical Summary {[id number]-[id number] 71-34-2n-31-89-q5-c9-f1}C D:[id number] [facility] Patient Educationon 11-11-19 Patient Education Family Medicine Urinary Frequency The [...] your urinary (more content not included)... [facility] U[facility] Phone Visit- Telehealth [...] only communication with the patient located at [facility] [phone] , with no one else. If it [...] Contact Information Francie BENSON, Dawna Feldman [address] [place] [phone] Additional Instructions: Patient Education Urodynamic Testing Overactive [...] urine stream His (more content not included)... [facility] Comment on above: Result Comment: Elec tronically Signed By: Francie BENSON, Dawna Feldman\.br\Date and Time Signed: 11/03/20 11:59 EST\.br\Electronically Co-Signed By: Christy Gill MA\.br\Date and Time Co-Signed: 10/21/20 12:01 EST Coding Summary.on 10-28-2020 Coding Summary. CODING DATE: 020 [facility] STATUS: Home (Routine DC) PAYOR: Medicaid EAPG [...] Eileen Scott Date Saved: 10/28/2020 11:17 am [facility] Ambulatory Clinical Summaryo n 10-27-2020 Ambulatory Clinical Summary {[id number] sd-e1-b5-82-84-05-c6-e5}C D:[id number] [facility] Consent for Procedure/Surger yon 10-27-2020 Consent for Procedure/Surgery [id number]#1.00CD: 127 [facility] Consent for Treatmenton 10-07 Consent for Treatment [id number]#1.00CD:12 7 [facility] IntraOperative Documentson 1 12-28-2019 IntraOperative Documents [id number]#1.00CD: 127 [facility] Patient Educationon 10-21-20 20 Patient Education Family [...] lab or depar (more content not included)... [facility] PT - Assessmentson 0 PT - Assessments [id number]#1.00CD:1 27 [facility] Nonvisit Note - PTon 020 Nonvisit Note - PT Per voicemail: she n eeds to cancel all of her PT due to personal reasons. [facility] Provider Letteron 09-09-2020 Provider Letter (Inserted Image. Jessica ble to display) September 09, 2020 MARY LEAL [address] [place] [address] MARY LEAL 1970 Dear Mary Leal, You [...] [facility] [address], [place] [address] [facility] PT - Assessmentson 0 PT - Assessments [id number]#1.00CD:1 27 [facility] PT - Assessments [id number]#1.00CD:1 27 [facility] PT - Assessmentson 0 PT - Assessments [id number]#1.00CD:1 27 [facility] PT - Consentson 08-31-2020 PT - Consents [id number]#1.00CD:1 27 [facility] Pre-Certification Formon Pre-Certification Form [id number]#1.00CD:12 7 [facility] Pre-Certification Form [id number]#1.00CD:12 7 [facility] Consent for Procedure/Surger yon 08-26-2020 Consent for Procedure/Surgery [id number]#1.00CD:12 7 [facility] Ambulatory Clinical Summaryo n 08-25-2020 Ambulatory Clinical Summary {[id number]-u9-40-7c- 00-aa-9z-33-55-k1-7d-25}C D:[id number] [facility] Patient Educationon 08-25-20 Patient Education Family Medicine [...] an extended amount of time. Only take rtqr-mhu-zwbwdug or prescription medicines for pain, discomfort, or [...] Document Reviewed: 09/07/2009 ExitCare? Patient Information ?2013 [employer]. [facility] Urology Office/Clinic Noteon 08-25-2020 Urology Office/Clinic Note [...] International_Unit, Not taking Allergies Percocet (Unknown) Poison brenda (Rash) RisperDAL (Unknown) oxyCODONE (Unknown) Social History Alcohol - Denies Alcohol Use, 04/22/2011 Substance Abuse - Denies Substance Abuse, 04/22/2011 Tobacco - Denies Tobacco Use, 04/22/2011 Never (less than 100 in lifetime) Tobacco Use:. Never Smokeless Tobacco Use:., 08/25/2020 Family History AF - Atrial fibrillation: Father. Alzheimer's disease: Mother. Hypertension: Mother and Father. [facility] Comment on above: Result Comment: Elec tronically Signed By: Francie BENSON, Dawna Feldman\.br\Date and Time Signed: 08/25/20 10:06 EDT\.br\Electronically Co-Signed By: Mary Hager\.br\Date and Time Co-Signed: 08/25/20 09:51 EDT Coding Summary.on 08-21-2020 Coding Summary. CODING DATE: FINAL [facility] STATUS: PAYOR: Medicaid EAPG DESCRIPTION 0271 PHYSICAL THERAPY ADMIT DX: REASON [...] Raymond CphT Date Saved: 08/21/2020 10:42 am [facility] Consenton 08-21-2020 Consent [id number]#1.00CD:12 7 [facility] Ambulatory Clinical Summaryo n 08-19-2020 Ambulatory Clinical Summary {[id number]-[id number]-2m-47-65- 02-99-10-5t-x1-x9-c8-73}C D:[id number] [facility] Ambulatory Clinical Summary {[id number]-2g-4f-26- f0-36-46-81-47-p1-0d-3c}C D:[id number] [facility] Nonvisit Note - PTon Nonvisit Note - PT Chart reviewed for scheduled eval. [facility] Patient Educationon 08-19-20 20 Patient Education Family [...] urinary (more content not included)... [facility] Urology Phone Visit- Telehealth [...] only communication with the patient located at [facility] [phone], with no one else. If it is [...] questions/concerns were discussed. Pt. acknowledges understanding. Ordered: [facility] External Ambulatory Referral Urology Procedure Order 2. Dysuria (R30.0: Dysuria) Moderate. Ordered: [facility] External Ambulatory Referral Urology Procedure Order 3. Feeling of incomplete bladder emptying (R39.14: Feeling of incomplete bladder emptying) Pt. does not feel that she is emptying. Ordered: [facility] External Ambulatory Referral Urology Procedure Order 4. Weak urine stream (R39.12: Poor urinary stream) Weak stream w/ moderate hesitancy. Ordered: [facility] External Ambulatory Referral Urology [...] Will order Local anesthesia. ABX sent to [facility] in [place]. Ordered: [facility] External Ambulatory Referral Urology [...] changes. Patient who (more content not included)... [facility] Comment on above: Result Comment: Elec tronically Signed By: Dawna Marmolejo MD\.br\Date and Time Signed: 08/19/20 08:53 EDT\.br\Electronically Co-Signed By: Christy Gill MA\.br\Date and Time Co-Signed: 08/19/20 08:44 EDT Coding Summary.on 08-12-2020 Coding Summary. CODING DATE: 020 FINAL [facility] STATUS: Home (Routine DC) PAYOR: Medicaid [...] Demi Fried Date Saved: 08/12/2020 09:42 am [facility] Formson 08-11-2020 Forms [id number]#1.00CD:12 7 [facility] C Urineon 08-09-2020 Bacteria identified Cx Nom [...] Locations R1: This test was performed at: [facility], [address] [place] [address], [id number] [place] [address], [facility] Comment on above: Performed By: #### 2 [id number] ####[facility] [address] [place] [address] Ambulatory Clinical Summaryo n 08-07-2020 Ambulatory Clinical Summary {[id number]-x6-89-nm-21-81-4a-70- 27-wo-17-38-6o-lh-84-a2}C D:[id number] [facility] Patient Educationon 08-07-20 Patient Education Kegel Exercises [...] Document Reviewed: 07/18/2013 ExitCare? Patient Information ?2013 [facility]. [facility] Medicine Overactive Bladder, Adult The bladder [...] bladder, your (more content not included)... [facility] Urology Office/Clinic Noteon 08-07-2020 Urology Office/Clinic [...] and history for this patient from D[facility] KWESI [place] There have been no associated fever, [...] setting of nocturia q2hrs and daytime frequency n2ofyor with painful post void bladder sensation of [...] [address] (more content not included)... [facility] Comment on above: Result Comment: Elec tronically Signed By: Dawna Marmolejo MD\.br\Date and Time Signed: 08/07/20 15:54 EDT\.br\Electronically Co-Signed By: Radha Hare MA.br\Date and Time Co-Signed: 08/07/20 15:44 EDT Vital Signs Date Time Vital Sign Value Performing Clinician Facility 01-25-2024 09:05-0400 Body height 162.6 cm [facility] Virtual Work Phone: [facility] 01-25-2024 09:05-0400 Body weight 68.04 kg [facility] Work Phone: [facility] 01-25-2024 09:05-0400 Heart rate 84 /min [facility] Work Phone: [facility] 01-25-2024 09:05-0400 Respiratory rate 16 /min [facility] Work Phone: [facility] 01-10-2024 12:40-0500 Body height 162.6 cm Cullen Dawkins MD Work Phone: [facility] 01-10-2024 12:40-0500 Body mass index (BMI) [Ratio] 27.89 kg/m2 Cullen Dawkins MD Work Phone: [facility] 01-10-2024 12:40-0500 Body weight 73.7 kg Cullen Dawkins MD Work Phone: [facility] 12-20-2023 12:21-0500 Body height 162.6 cm [facility] 12-20-2023 12:21-0500 Body mass index (BMI) [Ratio] 28.38 kg/m2 [facility] 12-20-2023 12:21-0500 Body temperature 98.2 [degF] [facility] 12-20-2023 12:21-0500 Body weight 75 kg [facility] 12-20-2023 12:21-0500 Diastolic blood pressure 90 mm[Hg] [facility] 12-20-2023 12:21-0500 Heart rate 72 /min [facility] 12-20-2023 12:21-0500 Respiratory rate 18 /min [facility] 12-20-2023 12:21-0500 SaO2% (BldA) [Mass fraction] 96 % [facility] 12-20-2023 12:21-0500 Systolic blood pressure 138 mm[Hg] [facility] 11-23-2023 08:14-0500 Body height 162.56 cm DO Shannon Gómez Work Phone: [facility] 11-23-2023 08:14-0500 Body weight 70.3 kg DO Shannon Gómez Work Phone: [facility] 08-12-2023 07:08-0400 Diastolic blood pressure 65 mm[Hg] Lex Salmon MD Work Phone: [facility] 08-12-2023 07:08-0400 Heart rate 77 /min Lex Salmon MD Work Phone: [facility] 08-12-2023 07:08-0400 SaO2% (BldA) [Mass fraction] 98 % Lex Salmon MD Work Phone: [facility] 08-12-2023 07:08-0400 Systolic blood pressure 132 mm[Hg] Lex Salmon MD Work Phone: [facility] 08-12-2023 06:48-0400 Respiratory rate 13 /min Lex Salmon MD Work Phone: [facility] 08-12-2023 00:25-0400 Body height 162.6 cm Lex Salmon MD Work Phone: [facility] 08-12-2023 00:25-0400 Body mass index (BMI) [Ratio] 28.01 kg/m2 Lex Salmon MD Work Phone: [facility] 08-12-2023 00:25-0400 Body temperature 97.59 [degF] Lex Salmon MD Work Phone: [facility] 08-12-2023 00:25-0400 Body weight 74.03 kg Lex Salmon MD Work Phone: [facility] 07-31-2023 14:27-0400 Body height 162.6 cm Nelsy Chávez APRN.GRAPHIC SPECIALIST Work Phone: [facility] 07-31-2023 14:27-0400 Body weight 69.85 kg Nelsy Chávez APRN.GRAPHIC SPECIALIST Work Phone: [facility] 07-31-2023 14:27-0400 Diastolic blood pressure 96 mm[Hg] Nelsy Chávez APRN.GRAPHIC SPECIALIST Work Phone: [facility] 07-31-2023 14:27-0400 Heart rate 76 /min Nelsy Chávez PUBLISHING SPECIALIST.GRAPHIC SPECIALIST Work Phone: [facility] 07-31-2023 14:27-0400 Systolic blood pressure 136 mm[Hg] Nelsy Chávez PUBLISHING SPECIALIST.GRAPHIC SPECIALIST Work Phone: [facility] 06-13-2023 10:37-0400 Body height 162.56 cm Eliceo Gómez Work Phone: [facility] DO Work Phone: 06-13-2023 10:37-0400 Body mass index (BMI) [Ratio] 27.46 kg/m2 Eliceo Gómez Work Phone: [facility] DO Work Phone: 06-13-2023 10:37-0400 Body surface area Derived from formula 1.78 m2 Eliceo Gómez Work Phone: [facility] DO Work Phone: 06-13-2023 10:37-0400 Body weight 72.58 kg Eliceo Gómez Work Phone: [facility] DO Work Phone: 06-13-2023 10:37-0400 Diastolic blood pressure 70 mm[Hg] Eliceo Gómez Work Phone: [facility] DO Work Phone: 06-13-2023 10:37-0400 Heart rate 70 /min Eliceo Gómez Work Phone: [facility] DO Work Phone: 06-13-2023 10:37-0400 Systolic blood pressure 100 mm[Hg] Eliceo Gómez Work Phone: [facility] DO Work Phone: 06-13-2023 10:37-0400 11 1 Eliceo Gómez Work Phone: [facility] DO Work Phone: Comment on above: PHQ-9 TS 06-05-2023 13:23-0400 Diastolic blood pressure 68 mm[Hg] DO Shannon Szymanskijerometomasa Work Phone: [facility] 06-05-2023 13:23-0400 Heart rate 72 /min DO Shannon Szymanskijerometomasa Work Phone: [facility] 06-05-2023 13:23-0400 Respiratory rate 18 /min DO Shannon Gómez Work Phone: [facility] 06-05-2023 13:23-0400 SaO2% (BldA) [Mass fraction] 97 % DO Shannon Gómez Work Phone: [facility] 06-05-2023 13:23-0400 Systolic blood pressure 129 mm[Hg] DO Shannon Gómez Work Phone: [facility] 06-05-2023 09:32-0400 Body height 162.56 cm DO Shannon Gómez Work Phone: [facility] 06-05-2023 09:32-0400 Body weight 73.9 kg DO Shannon Gómez Work Phone: [facility] 06-05-2023 09:31-0400 Body temperature 97.5 [degF] DO Shannon Gómez Work Phone: [facility] 01-16-2023 13:18-0400 Body height 162.6 cm [facility] 01-16-2023 13:18-0400 Body weight 68.04 kg [facility] 11-21-2022 08:00-0500 Body height 162.6 cm Pac 2 Work Phone: [facility] 11-21-2022 08:00-0500 Body weight 64.86 kg Pac 2 Work Phone: [facility] 10-11-2022 10:08-0500 Body height 162.6 cm Isra Masters DO Work Phone: [facility] 10-11-2022 10:08-0500 Body weight 78.02 kg Isra Masters DO Work Phone: [facility] 10-11-2022 10:08-0500 Diastolic blood pressure 97 mm[Hg] Isra Masters DO Work Phone: [facility] 10-11-2022 10:08-0500 Heart rate 89 /min Isra Masters DO Work Phone: [facility] 10-11-2022 10:08-0500 Systolic blood pressure 141 mm[Hg] Isar Masters DO Work Phone: [facility] 10-10-2022 14:30-0500 Body height 162.56 cm Beto Olexa Other [employer] Other 10-10-2022 14:30-0500 Body mass index (BMI) [Ratio] 28.66 kg/m2 Beto Olexa Other [facility] Other 10-10-2022 14:30-0500 Body weight 75.75 kg Beto Olexa Other [facility] Other 07-26-2022 11:13-0400 Body height 162.6 cm Mary Obrien MD Work Phone: [facility] 07-26-2022 11:13-0400 Body temperature 97.5 [degF] Mary Obrien MD Work Phone: [facility] 07-26-2022 11:13-0400 Body weight 77.56 kg Mary Obrien MD Work Phone: [facility] 07-26-2022 11:13-0400 Diastolic blood pressure 83 mm[Hg] Mary Obrien MD Work Phone: [facility] 07-26-2022 11:13-0400 Heart rate 95 /min Mary Obrien MD Work Phone: [facility] 07-26-2022 11:13-0400 SaO2% (BldA) [Mass fraction] 97 % Mary Obrien MD Work Phone: [facility] 07-26-2022 11:13-0400 Systolic blood pressure 110 mm[Hg] Mary Obrien MD Work Phone: [facility] 05-26-2022 11:45-0400 Body height 162.56 cm Beto Pradeeptonia Other [employer] Other 05-26-2022 11:45-0400 Body mass index (BMI) [Ratio] 29.18 kg/m2 Beto Pradeeptonia Other [employer] Other 05-26-2022 11:45-0400 Body weight 77.11 kg Beto Pradeeptonia Other [employer] Other 05-12-2022 09:06-0400 Diastolic blood pressure 80 mm[Hg] Eliceo Gómez Work Phone: [employer] [employer] 250 DO Work Phone: 05-12-2022 09:06-0400 Systolic blood pressure 126 mm[Hg] Eliceo Gómez Work Phone: [employer] [employer] 250 DO Work Phone: 05-12-2022 08:57-0400 Body height 162.56 cm Eliceo Gómez Work Phone: [employer] 250 DO Work Phone: 05-12-2022 08:57-0400 Body mass index (BMI) [Ratio] 29.87 kg/m2 Eliceo Gómez Work Phone: [employer] [employer] 250 DO Work Phone: 05-12-2022 08:57-0400 Body surface area Derived from formula 1.84 m2 Eliceo Gómez Work Phone: [facility] 250 DO Work Phone: 05-12-2022 08:57-0400 Body weight 78.93 kg Eliceo Gómez Work Phone: [facility] 250 DO Work Phone: 05-12-2022 08:57-0400 Diastolic blood pressure 80 mm[Hg] Eliceo Gómez Work Phone: [facility] 250 DO Work Phone: 05-12-2022 08:57-0400 Heart rate 68 /min Eliceo Gómez Work Phone: [facility] 250 DO Work Phone: 05-12-2022 08:57-0400 Systolic blood pressure 130 mm[Hg] Eliceo Gómez Work Phone: [facility] 250 DO Work Phone: 05-10-2022 12:30-0400 Body height 162.56 cm Allison Lyla Other [employer] Other 05-10-2022 12:30-0400 Body mass index (BMI) [Ratio] 29.18 kg/m2 Allison Lyla Other [employer] Other 05-10-2022 12:30-0400 Body temperature 97.3 [degF] Allison Arita Other [employer] Other 05-10-2022 12:30-0400 Body weight 77.11 kg Allison Lyal Other [employer] Other 05-10-2022 12:30-0400 Respiratory rate 18 /min Allison Arita Other [employer] Other 05-10-2022 12:30-0400 SaO2% (BldA) [Mass fraction] 98 % Allison Arita Other [employer] Other 04-22-2022 12:04-0400 Body height 162.6 cm Jessi Sheets PUBLISHING SPECIALIST.GRAPHIC SPECIALIST Work Phone: [facility] 04-22-2022 12:04-0400 Body weight 77.56 kg Jessi Sheets PUBLISHING SPECIALIST.GRAPHIC SPECIALIST Work Phone: [facility] 04-22-2022 12:04-0400 Diastolic blood pressure 68 mm[Hg] Jessi Sheets PUBLISHING SPECIALIST.GRAPHIC SPECIALIST Work Phone: [facility] 04-22-2022 12:04-0400 Heart rate 76 /min Jessi Sheets PUBLISHING SPECIALIST.GRAPHIC SPECIALIST Work Phone: [facility] 04-22-2022 12:04-0400 SaO2% (BldA) [Mass fraction] 98 % Jessi Sheets PUBLISHING SPECIALIST.GRAPHIC SPECIALIST Work Phone: [facility] 04-22-2022 12:04-0400 Systolic blood pressure 104 mm[Hg] Jessi Sheets PUBLISHING SPECIALIST.GRAPHIC SPECIALIST Work Phone: [facility] 03-15-2022 16:30-0400 Body height 162.56 cm Beto Harris Other [employer] Other 03-15-2022 16:30-0400 Body mass index (BMI) [Ratio] 30.55 kg/m2 Beto Harris Other [employer] Other 03-15-2022 16:30-0400 Body weight 80.74 kg Beto Harris Other [employer] Other 03-15-2022 08:36-0400 Body height 162.6 cm Isra Masters DO Work Phone: [facility] 03-15-2022 08:36-0400 Body weight 83.01 kg Isra Masters DO Work Phone: [facility] 03-15-2022 08:36-0400 Diastolic blood pressure 87 mm[Hg] Isra Masters DO Work Phone: [facility] 03-15-2022 08:36-0400 Heart rate 85 /min Isra Masters DO Work Phone: [facility] 03-15-2022 08:36-0400 SaO2% (BldA) [Mass fraction] 100 % Isra Masters DO Work Phone: [facility] 03-15-2022 08:36-0400 Systolic blood pressure 133 mm[Hg] Isra Galarzae DO Work Phone: [facility] 03-14-2022 10:23-0400 Body height 162.6 cm Pacc 4 Work Phone: [facility] 03-14-2022 10:23-0400 Body temperature 97.2 [degF] Pacc 4 Work Phone: [facility] 03-14-2022 10:23-0400 Body weight 83.01 kg Pacc 4 Work Phone: [facility] 03-14-2022 10:23-0400 Diastolic blood pressure 76 mm[Hg] Pacc 4 Work Phone: [facility] 03-14-2022 10:23-0400 Heart rate 74 /min Pacc 4 Work Phone: [facility] 03-14-2022 10:23-0400 Respiratory rate 16 /min Pacc 4 Work Phone: [facility] 03-14-2022 10:23-0400 SaO2% (BldA) [Mass fraction] 98 % Pacc 4 Work Phone: [facility] 03-14-2022 10:23-0400 Systolic blood pressure 114 mm[Hg] Pacc 4 Work Phone: [facility] 02-18-2022 09:43-0400 Body height 162.6 cm Nelsygregory Chávez PUBLISHING SPECIALIST.GRAPHIC SPECIALIST Work Phone: [facility] 02-18-2022 09:43-0400 Body weight 80.29 kg Nelsy Wynnegand PUBLISHING SPECIALIST.GRAPHIC SPECIALIST Work Phone: [facility] 02-18-2022 09:43-0400 Diastolic blood pressure 70 mm[Hg] Nelsy Chávez PUBLISHING SPECIALIST.GRAPHIC SPECIALIST Work Phone: [facility] 02-18-2022 09:43-0400 Systolic blood pressure 110 mm[Hg] Nelsy Katya PUBLISHING SPECIALIST.GRAPHIC SPECIALIST Work Phone: [facility] 02-08-2022 14:52-0400 Body height 162.6 cm Mary Obrien MD Work Phone: [facility] 02-08-2022 14:52-0400 Body weight 83.01 kg Mary Obrien MD Work Phone: [facility] 02-08-2022 14:52-0400 Diastolic blood pressure 76 mm[Hg] Mary Obrien MD Work Phone: [facility] 02-08-2022 14:52-0400 Heart rate 79 /min Mary Obrien MD Work Phone: [facility] 02-08-2022 14:52-0400 SaO2% (BldA) [Mass fraction] 97 % Mary Obrien MD Work Phone: [facility] 02-08-2022 14:52-0400 Systolic blood pressure 113 mm[Hg] Mary Obrien MD Work Phone: [facility] 02-08-2022 11:19-0400 Body weight 83.01 kg Magali Mitchell PUBLISHING SPECIALIST.GRAPHIC SPECIALIST Work Phone: [facility] 02-08-2022 11:19-0400 Diastolic blood pressure 76 mm[Hg] Magali Mitchell PUBLISHING SPECIALIST.GRAPHIC SPECIALIST Work Phone: [facility] 02-08-2022 11:19-0400 Heart rate 74 /min Magali Mitchell PUBLISHING SPECIALIST.GRAPHIC SPECIALIST Work Phone: [facility] 02-08-2022 11:19-0400 Systolic blood pressure 113 mm[Hg] Magali Mitchell PUBLISHING SPECIALIST.GRAPHIC SPECIALIST Work Phone: [facility] 10-20-2021 09:45-0500 Body height 162.56 cm Beto Pradeeptonia Other [employer] Other 10-20-2021 09:45-0500 Body mass index (BMI) [Ratio] 31.41 kg/m2 Beto Fernándezer Other [employer] Other 10-20-2021 09:45-0500 Body weight 83.01 kg Beto Pradeeptonia Other [employer] Other 08-19-2021 17:10-0400 Body height 162.56 cm Erica Vashti Other [employer] Other 08-19-2021 17:10-0400 Body mass index (BMI) [Ratio] 31.24 kg/m2 Erica Vashti Other [employer] Other 08-19-2021 17:10-0400 Body temperature 97.3 [degF] Erica Vashti Other [employer] Other 08-19-2021 17:10-0400 Body weight 82.56 kg Erica Vashti Other [employer] Other 08-19-2021 17:10-0400 Diastolic blood pressure 82 mm[Hg] Erica Vashti Other [employer] Other 08-19-2021 17:10-0400 Respiratory rate 18 /min Erica Vashti Other [employer] Other 08-19-2021 17:10-0400 SaO2% (BldA) [Mass fraction] 98 % Erica Kingston Other [employer] Other 08-19-2021 17:10-0400 Systolic blood pressure 126 mm[Hg] Erica Kingston Other [employer] Other 08-13-2021 10:15-0400 Body height 162.56 cm Tita Ginty Other [employer] Other 08-13-2021 10:15-0400 Body mass index (BMI) [Ratio] 30.89 kg/m2 Tita Ginty Other [employer] Other 08-13-2021 10:15-0400 Body temperature 6 [degF] Tita Ginty Other [employer] Other 08-13-2021 10:15-0400 Body weight 81.65 kg Tita Ginty Other [employer] Other 08-13-2021 10:15-0400 SaO2% (BldA) [Mass fraction] 99 % Tita Ginty Other [employer] Other 07-28-2021 09:30-0400 Body height 162.56 cm Beto Harris Other [employer] Other 07-28-2021 09:30-0400 Body mass index (BMI) [Ratio] 30.89 kg/m2 Beto Harris Other [employer] Other 07-28-2021 09:30-0400 Body weight 81.65 kg Beto Harris Other [employer] Other Encounters Encounter Date Encounter Type Care Provider Facility Start: 02-11-2024 End: 02-11-2024 ambulatory ELICEO GÓMEZ JR Facility:[facility] Start: 02-11-2024 End: 02-11-2024 ambulatory Lissa Doyle PUBLISHING SPECIALIST.GRAPHIC SPECIALIST Work Phone: Telemedicine Comment on above: Procedure and treatm ent not carried out for other reasons (Primary Dx) Start: 02-11-2024 End: 02-11-2024 Telemedicine consultation with patient Lissa Doyle PUBLISHING SPECIALIST.GRAPHIC SPECIALIST Work Phone: [facility] Start: 02-09-2024 ambulatory Pam rios MD Work Phone: URO/Gynecology Comment on above: Yeast infection Start: 02-07-2024 End: 02-07-2024 ambulatory [facility] Start: 01-27-2024 Telephone encounter Radha florez MD Work Phone: Gynecology Start: 01-26-2024 End: 01-26-2024 ambulatory PURMELA FELIPE Facility:[facility] Start: 01-25-2024 End: 01-25-2024 Telemedicine consultation with patient Nurse Assembler [employer] Work Phone: [facility] Start: 01-25-2024 Encounter for other preprocedural examination PAM WANG [facility] Start: 01-25-2024 End: 01-25-2024 Admission to establishment Pac [place] [facility] Work Phone: [facility] Start: 01-25-2024 End: 01-25-2024 ambulatory Nurse Assembler [employer] Work Phone: Pre Anesthesia Comment on above: Pre-op examination ( Primary Dx); Obesity (BMI 30.0-34.9); Mild persistent asthma without complication; CHUCKIE (obstructive sleep apnea); Primary hypertension; Gastroparesis; Gastroesophageal reflux disease, unspecified whether esophagitis present Educational circumst ances (Primary Dx) Start: 01-25-2024 End: 01-25-2024 Preprocedural examination done Pac Virtual Work Phone: [facility] Work Phone: Start: 01-23-2024 End: 01-23-2024 ambulatory ELICEO GÓMEZ Not Available Start: 01-15-2024 End: 01-16-2024 ambulatory Ace Ahumada MD Facility:[facility] Start: 01-10-2024 End: 01-10-2024 ambulatory CULLEN Winnie [facility] Start: 01-10-2024 End: 01-10-2024 Postop follow up visit related to original px Cullen Dawkins MD Work Phone: [facility] [place] [facility] Comment on above: CHUCKIE (obstructive sle ep apnea) (Primary Dx) Start: 01-03-2024 End: 01-03-2024 Evaluation and management of inpatient RAJIV Asiya [facility] Start: 01-02-2024 End: 01-03-2024 Evaluation and management of inpatient [facility] Start: 01-02-2024 End: 01-02-2024 Evaluation and management of inpatient [facility] Start: 12-27-2023 Telephone encounter Cullen glover MD Work Phone: [facility] [place] [facility] Start: 12-25-2023 End: 12-26-2023 ambulatory Pam Wang MD Work Phone: URO/Gynecology Comment on above: Having another stimu lator besides bladder Start: 12-25-2023 Telephone encounter Pam simon MD Work Phone: Gynecology Comment on above: Question Start: 12-20-2023 End: 12-20-2023 ambulatory [facility] Start: 12-20-2023 Encounter for other preprocedural examination [facility] Start: 12-20-2023 End: 12-20-2023 Patient encounter procedure [facility] Provider 13 [facility] Comment on above: Pre-op testing (Prim tomer Dx) Start: 12-20-2023 End: 12-20-2023 Patient encounter status [facility] Start: 12-11-2023 End: 12-12-2023 ambulatory Ace Ahumada MD Facility: [facility] Start: 11-30-2023 End: 11-30-2023 ambulatory EAGLE VAZQUEZ Not Available Start: 11-27-2023 End: 11-27-2023 ambulatory Beto Harris Other [employer] Other Start: 11-27-2023 Telephone encounter [facility] Start: 11-23-2023 End: 11-23-2023 ambulatory Eagle Vazquez Facility:[facility] Start: 11-23-2023 End: 11-23-2023 ambulatory DO Shannon Gómez Work Phone: [facility] Work Phone: Start: 11-23-2023 End: 11-23-2023 Patient encounter procedure DO Shannon Lugo Stephonleigha Work Phone: [facility] Work Phone: Start: 11-21-2023 End: 11-21-2023 ambulatory ELICEO GÓMEZ JR Facility:[facility] Start: 11-16-2023 End: 11-16-2023 ambulatory Beto Harris Other [employer] Other Start: 11-16-2023 Telephone encounter [facility] Start: 11-14-2023 End: 11-14-2023 ambulatory DIPTI ACEVEDO Not Available Start: 11-14-2023 End: 11-14-2023 ambulatory EAGLE VAZQUEZ Not Available Start: 11-10-2023 End: 11-10-2023 ambulatory ELICEO GÓMEZ Not Available Start: 11-08-2023 Telephone encounter [facility] Start: 10-31-2023 End: 11-01-2023 ambulatory RON KING Not Available Start: 10-27-2023 End: 10-28-2023 ambulatory EAGLE VAZQUEZ Not Available Start: 10-26-2023 Telephone encounter [facility] Start: 10-26-2023 End: 10-26-2023 ambulatory RON Nicole PAYTONLeah [facility] [email or web address] Other Start: 10-24-2023 End: 10-24-2023 ambulatory EAGLE VAZQUEZ Not Available Start: 10-23-2023 End: 10-23-2023 ambulatory [facility] Start: 10-10-2023 End: 10-10-2023 ambulatory PAM WANG Facility:[facility] Start: 10-06-2023 End: 10-06-2023 ambulatory Beto Harris Other [facility] [employer] Other Start: 10-06-2023 Telephone encounter [facility] Start: 10-03-2023 End: 10-04-2023 ambulatory ELICEO GÓMEZ Not Available Start: 09-27-2023 End: 09-27-2023 ambulatory Pam Wang MD Work Phone: Urogynecology Comment on above: Worsening Start: 09-27-2023 Refill Doris Arias APRN.CNP Work Phone (unformatted): [phone] Urogynecology Comment on above: Med Change Request Start: 09-21-2023 End: 09-21-2023 ambulatory ELICEO GÓMEZ Not Available Start: 09-11-2023 End: 09-11-2023 ambulatory JAIRON LAI Facility:[facility] Start: 08-23-2023 End: 08-23-2023 ambulatory [facility] Start: 08-12-2023 End: 08-12-2023 Emergency department patient visit LEX SALMON [facility] Start: 08-12-2023 End: 08-12-2023 Emergency department patient visit Lex Salmon MD Work Phone: [facility] Emergency Dept Comment on above: Upper abdominal pain (Primary Dx) Start: 08-09-2023 ambulatory Mary Obrien MD Work Phone: Colorectal Surgery Comment on above: Response Start: 08-07-2023 End: 08-07-2023 ambulatory Mary Obrien MD Work Phone: Colorectal Surgery Comment on above: Colon Start: 08-01-[address] Eliceo Gómez Jr Facility: Start: 07-31-2023 End: 07-31-2023 ambulatory ELICEO GÓMEZ JR Facility:[facility] Start: 07-31-2023 End: 07-31-2023 Patient encounter procedure Nelsy Chávez DANN.GRAPHIC SPECIALIST Work Phone: URO/Gynecology Comment on above: Incomplete bladder e mptying (Primary Dx); Constipation, unspecified constipation type; Urinary urgency; Urinary frequency; Nocturia Start: 07-25-2023 End: 07-26[facility] Start: 07-17-2023 (Procedure) Short Beto Harris [facility] Start: 07-17-2023 End: 07-17-2023 ambulatory Beto Harris Other [facility] [employer] Other Start: 07-12-2023 End: 07-12-2023 ambulatory Beto Harris Other [facility] [employer] Other Start: 07-12-2023 Telephone encounter Beto [facility] Start: 06-13-2023 Office consultation new/estab patient 60 min Eliceo Gómez Work Phone: [facility] 320 DO Work Phone: Start: 06-13-[address] Dipti Anaya Facility: Start: 06-08-2023 End: 06-08-2023 ambulatory GIANA [facility] Start: 06-07-[address] Dipti Anaya Facility:[id number] Start: 06-05-2023 End: 06-05-2023 Emergency department patient visit Anibal Valle Facility:[facility] Start: 06-05-2023 End: 06-05-2023 Emergency department patient visit DO Shannon Gómez Work Phone: [facility]-Emergency Room Work Phone: Start: 05-31-2023 End: 05-31-2023 ambulatory SIOMARA LAY [facility] Start: 05-28-2023 ambulatory Pam rios MD Work Phone: URO/Gynecology Comment on above: Problems with urinat ing Start: 05-22-2023 End: 05-22-2023 ambulatory [facility] Start: 05-17-2023 End: 05-17-2023 [facility] Start: 05-17-2023 End: 05-17-2023 ambulatory [facility] Start: 04-26-2023 End: 04-26-2023 ambulatory Beto Harris Other [employer] Other Start: 04-26-2023 Office outpatient vi sit 25 minutes Beto Harris [facility] [place] Start: 04-17-2023 ambulatory [facility] Start: 04-11-2023 Refill Isra S Clin e DO Work Phone: Gastroenterology Comment on above: Refill Request Start: 04-10-2023 ambulatory CAR[facility] Start: 04-04-2023 End: 04-05-[address] Isatu GÓMEZ Facility: Start: 03-20-2023 ambulatory CAR[facility] Start: 03-19-2023 ambulatory Isra S Clin e DO Work Phone: Gastroenterology Comment on above: Stool sample results Start: 03-17-2023 End: 03-17-2023 ambulatory Niecy Duron Facility:[facility] Start: 03-17-2023 End: 03-17-2023 ambulatory DO Shannon Gómze Work Phone: [facility] Work Phone: Start: 03-17-2023 End: 03-17-2023 Discharged Recurring DO Shannon Gómez Work Phone: [facility]-Physical Therapy Molly Work Phone: Start: 03-16-2023 End: 03-16-2023 ambulatory ELICEO GÓMEZ JR Facility:[facility] Start: 03-15-2023 Orders Only Isra rios DO Work Phone: Gastroenterology Comment on above: Diarrhea due to power bsorption (Primary Dx) What lab? Start: 03-06-2023 End: 03-06-[address] Isatu GÓMEZ Facility:[facility] Start: 03-06-2023 ambulatory [facility] Start: 02-27-2023 ambulatory [facility] Start: 02-21-2023 End: 02-22-[address] Isatu GÓMEZ Facility:[facility] Start: 02-20-2023 ambulatory [facility] Start: 02-19-2023 End: 02-19-[address] Isatu GÓMEZ Facility:[facility] Start: 02-16-2023 End: 02-16-2023 ambulatory GIANA [facility] Start: 02-13-2023 ambulatory [facility] Start: 01-31-2023 End: 02-01-2023 ambulatory NIECY DURON Facility:[facility] Start: 01-27-2023 End: 01-27-[address] Isatu GÓMEZ Facility:[facility] Start: 01-20-2023 ambulatory Wisnton chand DO Work Phone: General Surgery Comment on above: Clarification Start: 01-19-2023 ambulatory Winston chand DO Work Phone: General Surgery Comment on above: General Start: 01-16-2023 Telephone encounter Mounika farrell PA-C Work Phone: Pre Anesthesia Comment on above: Appointment (Pt has not arrived for her 1 pm appointment) Start: 01-16-2023 End: 01-16-[address] [facility] Start: 01-16-2023 End: 01-16-2023 ambulatory [facility] Pre Anesthesia Comment on above: Preop examination [...] patient Winston Kenny Brielle DO Work Phone: [employer] Start: 12-28-2022 ambulatory Yoni Tuttle MD Work [...] End: 12-22-2022 Telemedicine consultation with patient Winston Kenny Brielle DO Work Phone: [facility] Start: 12-21-2022 End: 12-22-2022 ambulatory SADE WILDE Facility:[facility] Start: 12-15-2022 End: 12-15-2022 Manual pelvic examination Mary Obrien MD Work Phone: Colorectal Surgery Comment on above: Colonic inertia (Phoebe unique Dx); Pelvic floor dysfunction; Nausea; Gastroparesis Start: 12-15-2022 End: 12-15-2022 Telemedicine consultation with patient Mary Obrien MD Work Phone: TIA WILDE [facility] Start: 12-14-2022 ambulatory Yoni Tuttle MD Work Phone: NEUROLOGY Comment on above: Right number? Start: 12-09-2022 ambulatory Mary Obrien MD Work Phone: Colorectal Surgery Comment on above: Colon Start: 12-09-2022 Telephone encounter Mary brewer MD Work Phone: Colorectal Surgery Comment on above: Patient Question Start: 12-08-2022 Telephone encounter Isra S Masters DO Work Phone: Gastroenterology Comment on above: Results (Sigmoidosco py results; patient questions) Start: 12-07-2022 ambulatory Winston Pazi c DO Work Phone: General Surgery Comment on above: Carafate Start: 12-06-2022 ambulatory Isra S Clin e DO Work Phone: Gastroenterology Comment on above: Results Start: 12-05-2022 ambulatory Winston chand DO Work Phone: [facility] Start: 12-02-2022 ambulatory Isra S Clin e DO Work Phone: [facility] Start: 12-02-2022 Telephone encounter Yoni Tuttle MD Work Phone: Neurology Comment on above: Returning Nurse Call Start: 12-01-2022 End: 12-02-2022 ambulatory NIECY DURON Facility:[facility] Start: 11-30-2022 End: 11-30-2022 ambulatory Isra S Masters DO Work Phone: Gastroenterology Comment on above: Chronic idiopathic c onstipation (Primary Dx); Nausea Start: 11-30-2022 End: 11-30-2022 Telemedicine consultation with patient Isra Masters DO Work Phone: [facility] Start: 11-24-2022 ambulatory Isra rios DO Work [...] 11-21-2022 End: 11-21-2022 Admission to establishment [facility] Work Phone: [facility] Start: 11-21-2022 End: 11-21-2022 Preprocedural examination done [facility] 2 Work Phone: Pre Anesthesia Start: 11-17-2022 ambulatory Annmarie Gillespie RN Gastroe nterology Start: 11-17-2022 Patient encounter procedure Annmarie Gillespie RN [facility] Start: 11-17-2022 End: 11-17-2022 Subsequent hospital visit by physician Capsule Work Phone: Gastroenterology Start: 11-16-2022 ambulatory Yoni Tuttle MD Work Phone: NEUROLOGY Comment on above: The delay Start: 11-15-2022 ambulatory Yoni Tuttle MD Work Phone: NEUROLOGY Comment on above: Labs Start: 11-14-2022 End: 11-15-2022 ambulatory NIECY DURON Facility:[facility] Start: 11-10-2022 Telephone encounter Annmarie Gillespie RNinspector final assembly mechanical Comment on above: Preparations For Pro cedures [...] Encounter for preprocedural laboratory examination SADE WILDE [facility] Start: 10-20-2022 End: 10-20-2022 ambulatory Isra Masters DO Work Phone: Gastroenterology Comment on above: Smart pill Cpap Start: 10-19-2022 End: 10-19-2022 ambulatory JENNIFER JOSE Facility:[facility] Start: 10-18-2022 Refill Isra rios DO Work Phone: Gastroenterology Comment on above: Refill Request Start: 10-17-2022 Telephone encounter Yoni Tuttle MD Work Phone: Neurology Comment on above: PAP Rx Faxed (DME: S HS ) Start: 10-17-2022 End: 10-18-[address] Isatu GÓMEZ Facility:[facility] Start: 10-14-2022 End: 10-14-2022 ambulatory DO Shannon Gómez Work Phone: [facility] Work Phone: Start: 10-14-2022 End: 10-14-2022 Discharged Recurring DO Shannon Gómez Work Phone: [facility]-Physical Therapy Lerna Work Phone: Start: 10-13-2022 End: 10-14-2022 ambulatory SADE Kenny [facility] Facility:[facility] Start: 10-13-2022 End: 10-14-2022 Encounter for preprocedural laboratory examination SADE Kenny [facility] Facility:[facility] Start: 10-11-2022 End: 10-11-2022 ambulatory Beto Cartagena Other [employer] Other Start: 10-11-2022 Telephone encounter Beto Cartagena [employer] Start: 10-11-2022 End: 10-11-2022 Patient encounter procedure Isra Masters DO Work Phone: Gastroenterology Comment on above: Gas bloat syndrome ( Primary Dx); Chronic idiopathic constipation; Gastroparesis Start: 10-10-2022 End: 10-10-2022 ambulatory Beto Cartagena Other [employer] Other Start: 10-10-2022 Office outpatient ne w 30 minutes Beto Cartagena [facility] Start: 10-06-2022 End: 10-06-2022 ambulatory Beto Harris Other [facility] Other Start: 10-06-2022 Patient encounter procedure Beto Harris [facility] [place] [facility] Start: 09-28-2022 Encounter for other preprocedural examination SADE Kenny [facility] Start: 09-28-2022 Encounter for preprocedural cardiovascular examination SADE [facility] Start: 09-26-2022 End: 09-27-2022 ambulatory SADE Kenny [facility] Facility:H1 Start: 09-22-2022 Office outpatient vi sit 25 minutes Beto Harris [facility] Start: 09-22-2022 Telephone encounter Beto Harris [facility] [place] [facility] Start: 09-22-2022 End: 09-22-2022 ambulatory DO Shannon Gómez Work Phone: [facility] Other Start: 09-22-2022 End: 09-22-2022 Patient encounter procedure DO Shannon Gómez Work Phone: [facility] Start: 09-14-2022 End: 09-14-2022 ambulatory Eliceo Gómez Other [facility] Other Start: 09-14-2022 Encounter by sierra Gómez [facility] [place] [facility] Start: 09-14-2022 Office outpatient vi sit 15 minutes Beto Harris [facility] [place] [facility] Start: 09-14-2022 Telephone encounter [facility] Start: 08-16-2022 ambulatory Mary Obrien MD Work Phone: Colorectal Surgery Comment on above: CT results Ct scan result quest ion Start: 08-16-2022 E-mail encounter kendra m caregiver Mary Obrien MD Work Phone: [facility] Start: 08-12-2022 End: 08-12-2022 Subsequent hospital visit by physician Ct Prep [facility] Radiology Start: 07-27-2022 End: 07-28-2022 ambulatory [facility] Facility:H1 Start: 07-26-2022 Telephone encounter Isra Masters DO Work Phone: Gastroenterology Comment on above: Medication Problem; Medication 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 (PA for Dexlansoprazole) Start: 07-26-2022 End: 07-26-2022 Patient encounter procedure Mary Obrien MD Work Phone: Colorectal Surgery Comment on above: Follow-up examinatio n after colorectal surgery (Primary Dx); Periumbilical abdominal pain; Outlet dysfunction constipation; Colonic inertia Start: 06-08-2022 (Procedure) Short Beto Harris [facility] Start: 06-08-2022 End: 06-08-2022 ambulatory Beto Harris Other [facility] Other Start: 05-30-2022 Refill Mary Obrien MD Work Phone: Colorectal Surgery Comment on above: Refill Request Start: 05-26-2022 End: 05-26-2022 ambulatory Beto Harris Other [facility] Other Start: 05-26-2022 Office outpatient vi sit 25 minutes Beto Felter [facility] [place] [facility] Start: 05-12-2022 Office consultation new/estab patient 60 min Eliceo Gómez Work Phone: [facility] DO Work Phone: Start: 05-10-2022 End: 05-10-2022 ambulatory Allison Lyla Other [facility] Other Start: 05-10-2022 Office outpatient vi sit 15 minutes Allison Lutzault [facility] Start: 05-03-2022 Telephone encounter Mary brewer MD Work Phone: Colorectal Surgery Comment on above: 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 Medication Preauthor ization (PA for Dexilant renewal) Outside Labs Results Start: 03-15-2022 End: 03-15-2022 Patient encounter procedure Isra Masters DO Work Phone: Gastroenterology Comment on above: Gastroesophageal ref lux disease, unspecified whether esophagitis present; Chronic idiopathic constipation Start: 03-14-2022 End: 03-14-2022 PAT [facility] 4 Work Phone: Pre Anesthesia Comment on above: Preop examination (P rimary Dx); Attention to ileostomy ([facility]); Primary hypertension; Gastroparesis; Gastroesophageal reflux disease, unspecified whether esophagitis present; Mild persistent asthma without complication; Bipolar 1 disorder ([facility]); Obesity (BMI 30.0-34.9) Start: 03-14-2022 End: 03-14-2022 Preprocedural examination done [facility] 4 Work Phone: Pre Anesthesia Start: 02-28-2022 Telephone encounter Isra Masters DO Work Phone: Gastroenterology Comment on above: Appointment (for scr ipt refill) Start: 02-18-2022 End: 02-18-2022 Patient encounter procedure Nelsy Chávez APRN.GRAPHIC SPECIALIST Work Phone: URO/Gynecology Comment on above: Postoperative state (Primary Dx) Start: 02-11-2022 End: 02-11-2022 ambulatory Flaca Bartholomew PT Work Phone: [facility] Start: 02-11-2022 End: 02-11-2022 Follow-up encounter Flaca Bartholomew PT Work Phone: [place] [facility] Physical Therapy Comment on above: Pelvic floor dysfunc tion (Primary Dx); Lack of coordination; Follow-up examination after colorectal surgery Start: 02-09-2022 (Procedure) Win Harris [facility] Start: 02-09-2022 End: 02-09-2022 ambulatory Beto Harris Other [facility] Other Start: 02-08-2022 End: 02-08-2022 Patient encounter procedure Mary Obrien MD Work Phone: Colorectal Surgery Comment on above: Follow-up examinatio n after colorectal surgery (Primary Dx) Post-operative state (Primary Dx); Yeast infection of the skin Start: 02-01-2022 Refill Isra S Clin e DO Work Phone: Gastroenterology Comment on above: Refill Request (dexl ansoprazole) Start: 01-31-2022 End: 01-31-2022 ambulatory Newton Woodward PT Work Phone: [facility] Start: 01-31-2022 End: 01-31-2022 Follow-up encounter Newton Woodward PT Work Phone: [facility] Physical Therapy Comment on above: Pelvic floor dysfunc tion (Primary Dx); Lack of coordination; Follow-up examination after colorectal surgery Start: 11-25-2021 End: 11-25-2021 ambulatory Beto Harris Other [facility] Other Start: 11-25-2021 Office outpatient vi sit 25 minutes Beto Harris [facility] [place] [facility] Start: 11-17-2021 End: 11-18-2021 ambulatory [facility] Start: 10-20-2021 End: 10-20-2021 ambulatory Beto Harris Other [facility] Other Start: 10-20-2021 Office outpatient vi sit 25 minutes Beto Harris [facility] [place] Start: 10-13-2021 (Procedure) Short Beto Harris [facility] Start: 10-13-2021 End: 10-13-2021 ambulatory Beto Harris Other [facility] Other Start: 09-06-2021 Office outpatient vi sit 25 minutes Beto Harris [facility] [place] [facility] Start: 08-19-2021 Office outpatient vi sit 15 minutes Erica Kingston [facility] Start: 08-13-2021 Office outpatient vi sit 15 minutes Tita Daugherty [facility] Start: 08-12-2021 Office outpatient vi sit 25 minutes Beto Harris [facility] [place] Start: 07-28-2021 Office outpatient vi sit 25 minutes Beto Harris [facility] [place] Procedures Date Procedure Procedure Detail Performing Clinician Start: 12-20-2023 Basic metabolic pane l calcium total Caroline Brewer MD Work Phone: Start: 11-23-2023 Radionuclide imaging of liver and/or biliary tract using radioactive isotope DO Ortega Parish Dalia Work Phone: Start: 11-01-2023 Lipid 1996 panel - S jay or Plasma Pam Wang MD Work Phone: Start: 10-23-2023 Follow-up visit Follow-up PAULINE CHRISTENSEN Start: 10-23-2023 Adult depression scr eening assessment Emily Zamora Start: 08-12-2023 Assay of troponin quantitative Lev Ritter APRN GRAPHIC SPECIALIST Work Phone: Start: 08-12-2023 Ct abdomen & pelvis w/contrast material Lev Ritter APRN GRAPHIC SPECIALIST Work Phone: Start: 08-12-2023 Urnls dip stick/tabl et reagent auto microscopy Lex Salmon MD Work Phone: Start: 08-12-2023 Basic metabolic pane l calcium total Lex Salmon MD Work Phone: Start: 08-12-2023 DARK GREEN TOP Lex buitrago MD Work Phone: Start: 08-12-2023 GOLD TOP Lex urbina MD Work Phone: Start: 08-12-2023 Hepatic function panel Lev Ritter APRN GRAPHIC SPECIALIST Work Phone: Start: 08-12-2023 LIGHT BLUE TOP [...] et rgnt auto w/o microscopy Nelsy Chávez PUBLISHING SPECIALIST.GRAPHIC SPECIALIST Work Phone: Start: 06-05-2023 Plain chest X-ray [...] - S jay or Plasma Nelsy Chávez PUBLISHING SPECIALIST.GRAPHIC SPECIALIST Work Phone: Start: 02-08-2022 Urnls dip stick/tabl et rgnt auto w/o microscopy Magali Mitchell PUBLISHING SPECIALIST.GRAPHIC SPECIALIST Work Phone: Start: 12-16-2021 Antibody screen Comment on above: Performed By: #### T [id number] ####[address] [phone] Start: 10-15-2021 Antibody screen Comment on above: Performed By: #### T [id number] ####[address] [phone] Start: 06-28-2021 Mammography Mary brewer MD Work Phone: Start: 02-18-2021 H/O: surgery S/P nasal septoplasty C hristina Hissem Start: 02-18-2021 History of tonsillectomy S/P tonsill ectomy Emily Zamora Colonoscopy Eliceo Gómez Work Phone: Hysterectomy [...] DTAP/TDAP/TD VACCINE (2 - Td or Tdap) [facility] Start: 06-22-2030 DTaP,Tdap and Td Vaccines (2 - Td or Tdap) DTaP,Tdap and Td Vaccines (2 - Td or Tdap) [facility] Start: 06-22-2030 Urine microalbumin profile DTaP,Tdap,Td Vaccine (2 - Td or Tdap) [facility] Start: 11-01-2028 Lipid panel [facility] Scre[facility] Start: 12-05-2027 COLORECTAL CANCER SCREENING COLORECTAL CANCER SCREENING [facility] Start: 12-05-2027 Screening for malign ant neoplasm of colon [facility] Start: 12-05-2027 SIGMOIDOSCOPY SIGMOIDOSCOPY [facility] ludmila [facility] Start: 03-02-2027 Lipid 1996 panel - S jay or Plasma Lipid Screening [facility] Start: 03-02-2027 LIPID SCREEN LIPID SCREEN [facility] Start: 12-20-2026 Diabetes Screening Diabetes Screenin g [facility] Start: 08-12-2026 Diabetes Screening Diabetes Screenin g [facility] Start: 04-05-2025 DIABETES SCREEN DIABETES SCREEN [facility] Start: 04-05-2025 Diabetes Screening Diabetes Screenin g [facility] Start: 03-14-2025 DIABETES SCREEN DIABETES SCREEN [facility] Start: 01-09-2025 Adult BMI Screening Adult BMI Screen ing [facility] Start: 01-09-2025 Tobacco Screening Tobacco Screening [facility] Start: 12-26-2024 DIABETES SCREEN DIABETES SCREEN [facility] Start: 12-20-2024 Adult BMI Screening Adult BMI Screen ing [facility] Start: 12-20-2024 Tobacco Screening Tobacco Screening [facility] Start: 10-31-2024 Screening for malign ant neoplasm of breast Mammogram Screening [facility] Start: 10-23-2024 Adult BMI Screening Adult BMI Screen ing [facility] Start: 10-23-2024 Depression Screening Depression Scre ening [facility] Start: 10-23-2024 Tobacco Screening Tobacco Screening [facility] Start: 10-10-2024 BP Controlled (<130/80) BP Controlle d (<130/80) [facility] Start: 04-18-2024 End: 04-18-2024 Patient encounter procedure 04/18/2024 1:30 PM EDT Office Visit [facility] [address] [place] [phone] Pauline Christensen MD [address] [place] [address], [address], [address] [place] [phone] [facility] Start: 01-10-2024 End: 01-10-2024 Patient encounter procedure 01/10/2024 12:45 PM EST Office Visit [facility] [address] [place] [address], [address] [place] [phone] Cullen Dawkins MD [address] [place] [address] [address] [place] [address] [facility] Start: 01-02-2024 End: 01-02-2024 Admission to same day surgery center 01/02/2024 11:00 AM EST - 01/02/2024 3:30 PM EST Surgery [facility] [address] [place] [address] Cullen Dawkins MD [address] [place] [address] [address] [place] [id number] INSERTION STIMULATOR NERVE HYPOGLOSSAL [47111 (CPT )] [facility] Comment on above: INSERTION STIMULATOR NERVE HYPOGLOSSAL [35028 (CPT )] Start: 01-02-2024 End: 01-02-2024 INSERTION STIMULATOR NERVE HYPOGLOSSAL INSERTION STIMULATOR NERVE HYPOGLOSSAL CHUCKIE (obstructive sleep apnea) 01/02/2024 11:00 AM [facility] Start: 01-02-2024 Subsequent hospital visit by physician 01/02/2024 11:00 AM EST Hospital Encounter [facility] [address] [place] [phone] Cullen Dawkins MD [address] [place] [address] [address] [place] [id number] [facility] Start: 11-06-2023 Behavioral Health Screening Behavioral Health Screening [facility] Start: 11-06-2023 Depression Assessment Depression Ass essment [facility] Start: 09-27-2023 End: 12-27-2023 Bacteria identified in Urine by Culture URINE CULTURE Microbiology Routine Burning with urination Expected: 09/27/2023, Expires: 12/27/2023 [facility] Work Phone: Comment on above: Expected: 09/27/2023 , Expires: 12/27/2023 Start: 09-14-2023 Screening for malign ant neoplasm of breast MAMMOGRAM [facility] Start: 08-01-2023 FUV, Provider: Dipti Anaya, Status: Pen, Time: 11:00 AM FUV, Provider: Dipti Anaya, Status: Pen, Time: 11:00 AM [facility] DO Work Phone: Start: 07-07-2023 Covid-19 Vaccine ( season) Covid-19 Vaccine ( season) [facility] Start: 07-07-2023 Influenza vaccination C [facility] Start: 07-07-2023 Influenza vaccinatio n given INFLUENZA VACCINE (#1) [facility] Start: 06-05-2023 [facility] Start: 04-22-2023 BP CONTROLLED (<130/80) BP CONTROLLE D (<130/80) [facility] Start: 03-14-2023 BP CONTROLLED (<130/80) BP CONTROLLE D (<130/80) [facility] Start: 02-18-2023 BP CONTROLLED (<130/80) BP CONTROLLE D (<130/80) [facility] Start: 02-08-2023 BP CONTROLLED (<130/80) BP CONTROLLE D (<130/80) [facility] Start: 01-18-2023 BP CONTROLLED (<130/80) BP CONTROLLE D (<130/80) [facility] Start: 11-06-2022 DEPRESSION ASSESSMENT DEPRESSION ASS ESSMENT [facility] Start: 09-22-2022 [facility] Start: 08-02-2022 End: 08-25-2023 Ct abdomen & pelvis w/contrast material CT ABD/PEL W IVCON Radiology Routine Periumbilical abdominal pain Expected: 08/02/2022, Expires: 08/25/2023 [facility] Work Phone: Comment on above: Expected: 08/02/2022 , Expires: 08/25/2023 Start: 07-07-2022 Influenza vaccination C [facility] Start: 06-28-2022 Mammography [facility] Start: 2022 Administration of varicella zoster vaccine Zoster (Shingles) Vaccine (1 of 2) [facility] Start: 2022 COVID-19 VACCINE (4 - Booster for Pfizer series) COVID-19 VACCINE (4 - Booster for Pfizer series) [facility] Start: 2022 SHINGRIX VACCINE (1 of 2) SHINGRIX VACCINE (1 of 2) [facility] Start: 2022 Zoster vaccine hzv l annika for subcutaneous use ZOSTER (SHINGLES) VACCINE (1 of 2) [facility] Start: 04-01-2022 End: 06-01-2022 CBC W Auto Differential panel - Blood CBC + DIFF Lab Routine Follow-up examination after colorectal surgery Expected: 04/01/2022, Expires: 06/01/2022 [facility] Work Phone: Comment on above: Expected: 04/01/2022 , Expires: 06/01/2022 Start: 04-01-2022 End: 06-01-2022 Comprehensive metabolic 2000 panel - Serum or Plasma COMP METABOLIC PANEL Lab Routine Follow-up examination after colorectal surgery Expected: 04/01/2022, Expires: 06/01/2022 [facility] Work Phone: Comment on above: Expected: 04/01/2022 , Expires: 06/01/2022 Start: 04-01-2022 End: 06-01-2022 TYPE AND SCREEN,30 DAY TYPE AND SCREEN,30 DAY Blood Bank Routine Follow-up examination after colorectal surgery Expected: 04/01/2022, Expires: 06/01/2022 [facility] Work Phone: Comment on above: Expected: 04/01/2022 , Expires: 06/01/2022 Start: 01-19-2022 COVID-19 VACCINE (4 - Booster for Pfizer series) COVID-19 VACCINE (4 - Booster for Pfizer series) [facility] Start: 01-19-2022 COVID-19 VACCINE (4 - Pfizer series) COVID-19 VACCINE (4 - Pfizer series) [facility] Start: 11-06-2021 DEPRESSION ASSESSMENT DEPRESSION ASS ESSMENT [facility] Start: 07-07-2021 Influenza vaccination INFLUENZA (#1) [facility] Start: 2017 COLOGUARD (FIT-DNA) COLOGUARD (FIT-D NA) [facility] Start: 2017 Colonoscopy COLONOSCOPY [facility] Start: 2017 COLORECTAL CANCER SCREENING COLORECTAL CANCER SCREENING [facility] Start: [address] COLONOGRAPHY [facility] Start: 2017 FECAL OCCULT BLOOD FECAL OCCULT BLOO D [facility] Start: 2017 LIPID SCREEN LIPID SCREEN [facility] Start: 2017 Screening for malign ant neoplasm of colon [facility] Start: 2017 SIGMOIDOSCOPY SIGMOIDOSCOPY [facility] Start: 2012 Mammography MAMMOGRAM [facility] Start: 10-11-2008 Hepatitis B Vaccine (3 of 3 - 19+ 3-dose series) Hepatitis B Vaccine (3 of 3 - 19+ 3-dose series) [facility] Start: 2002 HPV TESTING HPV TESTING [facility] Start: 2002 Screening for malign ant neoplasm of cervix HPV Testing [facility] Start: 1993 PAP TESTING PAP TESTING [facility] Start: 1993 Screening for malign ant neoplasm of cervix Pap Testing [facility] Start: 1991 Urine microalbumin profile [facility] Start: 1990 Adult BMI Follow Up Plan Adult BMI Follow Up Plan [facility] Start: 1990 ANNUAL PCP TEAM SURGICAL TECHNOLOGY INSTRUCTOR ALEKSANDAR DISEASE VISIT ANNUAL PCP TEAM CHRONIC DISEASE VISIT [facility] Start: 1990 ANNUAL WELLNESS VISIT ANNUAL WELLNES S VISIT [facility] Start: 1990 BP CONTROLLED (<130/80) BP CONTROLLE D (<130/80) [facility] Start: 1990 HEPATITIS C SCREENING HEPATITIS C [facility] Start: 1990 Hepatitis C screening Hepatitis C [facility] Start: 1990 HIV SCREENING HIV SCREENING [facility] Start: 1990 HIV screening HIV Screening [facility] Start: 1984 Adult depression screening assessment DEPRESSION SCREENING [facility] Start: 1984 Depression screening using PHQ-9 (Patient Health Questionnaire 9) score DEPRESSION SCREENING [facility] Start: 1978 PNEUMOCOCCAL (1 - PCV) PNEUMOCOCCAL (1 - PCV) [facility] Start: 1978 Pneumococcal vaccination Pneum ococcal Vaccine (1 - PCV) [facility] Start: 1972 HEPATITIS B (1 of 3 - 3-dose series) HEPATITIS B (1 of 3 - 3-dose series) [facility] Start: 1972 Hepatitis B Vaccine (1 of 3 - 3-dose series) Hepatitis B Vaccine (1 of 3 - 3-dose series) [facility] Start: 1972 HPV/COTEST HPV/COTEST Former[facility] named [facility] Start: 1972 Screening for malign ant neoplasm of cervix [facility] 12 lead ECG EKG 12 lead ECG REYNA 08/12/2023 12:28 AM ED [facility] Work Phone: CT Abdomen and Pelvi s W contrast IV CT Abdomen / Pelvis With IV Contrast ONLY Imaging STAT 08/12/2023 5:42 AM ED [employer] End: 01-12-2024 EGD - THERAPEUTIC, EUS, OR TUBE INTERVENTIONS EGD - THERAPEUTIC, EUS, OR TUBE INTERVENTIONS Endoscopy Routine Gastroparesis 1 Occurrences starting 01/11/2023 until 01/12/2024 [facility] Work Phone: Comment on above: 1 Occurrences starti ng 01/11/2023 until 01/12/2024 FAT, FECAL QUAL FAT, FECAL QUAL Lab Routine Diarrhea due to malabsorption Ordered: 03/15/2023 [facility] Work Phone: Comment on above: Ordered: 03/15/2023 End: 10-11-2023 Gi transit & pres ravinder wireless capsule w/interp CAPSULE ENDOSCOPY SMART Endoscopy Routine Gastroparesis 1 Occurrences starting 10/11/2022 until 10/11/2023 [facility] Work Phone: Comment on above: 1 Occurrences starti ng 10/11/2022 until 10/11/2023 End: 12-17-2023 PAP TITRATION PSG (CPAP, BIPAP, ASV) PAP TITRATION PSG (CPAP, BIPAP, ASV) Procedures Routine CHUCKIE (obstructive sleep apnea) 1 Occurrences starting 11/17/2022 until 12/17/2023 [facility] Work Phone: Comment on above: 1 Occurrences starti ng 11/17/2022 until 12/17/2023 Patient Education Chest Pain, Adult ED [facility] Work Phone: Patient referral [facility] Work Phone: SARS-CoV-2 (COVID-19 ) RNA [Presence] in Respiratory specimen by JOSÉ MIGUEL with probe detection SELF CHECK COVID Microbiology Routine Follow-up examination after colorectal surgery Ordered: 02/09/2022 [facility] Work Phone: Comment on above: Ordered: 02/09/2022 End: 11-30-2023 SIGMOIDOSCOPY SIGMOIDOSCOPY Endoscopy Routine Chronic idiopathic constipation 1 Occurrences starting 11/30/2022 until 11/30/2023 [facility] Work Phone: Comment on above: 1 Occurrences starti ng 11/30/2022 until 11/30/2023 End: 08-12-2023 Troponin I.cardiac [Mass/volume] in Serum or Plasma Troponin I (One time) Lab Timed Once for 1 Occurrences starting 08/12/2023 until 08/12/2023 [facility] Work Phone: Comment on above: Once for 1 Occurrenc es starting 08/12/2023 until 08/12/2023 URODYNAMICS WHI URODYNAMICS WHI Procedures Routine Incomplete bladder emptying Urinary urgency Urinary frequency Nocturia Ordered: 07/31/2023 [facility] Work Phone: Comment on above: Ordered: 07/31/2023 [facility] Immunizations Immunization Date Immunization Notes Care Provider Shante rai 08-17-2022 influenza virus vaccine, unspecified formulation Nelsy Chávez APRN.GRAPHIC SPECIALIST Work Phone: [facility] 11-24-2021 Pfizer-BioNTech COVID-19 Vacc 30 MCG/0.3ML Intramuscular Suspension Eliceo Gómez Work Phone: [facility] [employer] DO Work Phone: 08-19-2021 KENALOG - 10 mg Erica Dycy d Other [employer] Other 05-11-2021 Pfizer-BioNTech COVID-19 Vacc 30 MCG/0.3ML Intramuscular Suspension Eliceo Gómez Work Phone: [facility] [employer] DO Work Phone: 04-20-2021 Pfizer-BioNTech COVID-19 Vacc 30 MCG/0.3ML Intramuscular Suspension Eliceo Gómez Work Phone: [facility] [employer] DO Work Phone: 09-02-2020 influenza, injectabl e, quadrivalent, preservative free Eliceo Gómez Work Phone: [facility] [employer] DO Work Phone: 08-06-2020 influenza, injectabl e, quadrivalent, preservative free Eliceo Gómez Work Phone: [facility] [employer] DO Work Phone: 06-22-2020 tetanus toxoid, redu nayeli diphtheria toxoid, and acellular pertussis vaccine, adsorbed Eliceo Gómez Work Phone: [facility] [employer] DO Work Phone: 02-01-2020 Toradol per 15 mg Beto turpin Other [facility] Other 07-15-2018 influenza, seasonal, injectable, preservative free Eliceo Gómez Work Phone: [facility] [employer] DO Work Phone: 07-14-2016 Rocephin 500 mg Beto ellis Other [employer] Other 05-12-2008 hepatitis B vaccine, adult dosage Eliceo Gómez Work Phone: [facility] [employer] DO Work Phone: 04-11-2008 hepatitis B vaccine, adult dosage Eliceo Gómez Work Phone: -[facility] [employer] 250 DO Work Phone: Payers Date Payer Category Payer Self-pay [id number] 2022 Unknown 2021 Medicaid [place] [employer] [place] [employer] [id number] 2021-Present [phone] [address] [place] [address] Medicaid [id number]. [id number] 2021 Medicaid [id number]. 1.13.159.2.7.3. [id number] 1972 Unknown [id number] 2.16.840.1.848350.3.579.2.176 1972 Unknown [id number] 2.16.840.1.314724.3.579.2.593 1972 Unknown [id number] 2.16.840.1.510057.3.579.2.593 1972 Unknown [id number] 2.16.840.1.965881.3.579.2.593 1972 Unknown [id number] 2.16.840.1.587139.3.579.2.593 1972 Unknown [id number] 2.16.840.1.535241.3.579.2.593 1972 Unknown [id number] 2.16.840.1.214629.3.579.2.593 1972 Unknown [id number] 2.16.840.1.651663.3.579.2.593 1972 Unknown [id number] 2.16.840.1.398534.3.579.2.593 1972 Unknown [id number] 2.16.840.1.118812.3.579.2.593 1972 Unknown [id number] 2.16.840.1.845642.3.579.2.593 1972 Unknown [id number] 2.16.840.1.496606.3.579.2.593 1972 Unknown [id number] 2.16.840.1.856134.3.579.2.593 1972 Unknown [id number] 2.16.840.1.868596.3.579.2.593 1972 Unknown [id number] 2.16.840.1.557665.3.579.2.593 1972 Unknown [id number] 2.16.840.1.534193.3.579.2.593 1972 Unknown [id number] 2.16.840.1.953752.3.579.2.593 1972 Unknown [id number] 2.16.840.1.813034.3.579.2.593 1972 Unknown [id number] 2.16.840.1.470014.3.579.2.297 1972 Unknown [id number] 2.16.840.1.134170.3.579.2.297 1972 Unknown [id number] 2.16.840.1.309473.3.579.2.356 1972 Unknown [id number] 2.16.840.1.881894.3.579.2.356 1972 Unknown [id number] 2.16.840.1.653740.3.579.2.356 1972 Unknown [id number] 2.16.840.1.447749.3.579.2.1286 1972 Unknown [id number] 2.16.840.1.941823.3.579.2.6 1972 Unknown [id number] 2.16.840.1.566871.3.579.2.128 1972 Unknown [id number] 2.16.840.1.810023.3.579.2.1285 1972 Unknown [id number] 2.16.840.1.441191.3.579.2.128 1972 Unknown [id number] 2.16.840.1.797671.3.579.2.1285 1972 Unknown [id number] 2.16.840.1.279239.3.579.2.1285 1972 Unknown [id number] 2.16.840.1.925107.3.579.2.1285 1972 Unknown [id number] 2.16.840.1.981974.3.579.2.196 1972 Unknown [id number] 2.16.840.1.250314.3.579.2.196 1972 Unknown [id number] 2.16.840.1.182897.3.579.2.196 1972 Unknown [id number] 2.16.840.1.144768.3.579.2.1259 1972 Unknown [id number] 2.16.840.1.242484.3.579.2.1259 1972 Unknown [id number] 2.16.840.1.890837.3.579.2.9 1972 Unknown [id number] 2.16.840.1.684456.3.579.2.9 1972 Unknown [id number] 2.16.840.1.512490.3.579.2.1259 1972 Unknown [id number] 2.16.840.1.039410.3.579.2.1258 1972 Unknown [id number] 2.16.840.1.857703.3.579.2.9 1972 Unknown [id number] 2.16.840.1.918621.3.579.2.1258 1972 Unknown [id number] 2.16.840.1.958271.3.579.2.1258 1972 Unknown [id number] 2.16.840.1.469596.3.579.2.1258 1972 Unknown [id number] 2.16.840.1.662894.3.579.2.1258 1972 Unknown [id number] 2.16.840.1.671161.3.579.2.1259 1959 Medicaid [id number] 1959 Unknown [id number] Unknown [id number] Unknown [id number] 2.16.840.1.904481.3.579.2.531 Unknown [id number] 2.16.840.1.414584.3.579.2.531 Unknown [id number] 2.16.840.1.053370.3.579.2.531 Social History Date Type Detail Facility Start: 10-08-2020 End: 10-10-2023 Tobacco smoking status NHIS Never smoked tobacco [facility] Start: 10-08-2020 End: 10-10-2023 Tobacco use and exposure Smokeless tobacco non-user [facility] Start: 01-04-2022 End: 01-25-2024 Alcohol intake Lifetime non-drinker (finding) [facility] Start: 10-08-2020 History SDOH Alcohol Frequency 1 [facility] Start: 1970 Sex Assigned At Female C [facility] Start: 01-21-2022 End: 07-26-2022 Exposure to SARS-CoV-2 (event) Not sure [facility] Start: 10-08-2020 End: 07-31-2023 Sex Assigned At [facility] Start: 10-08-2020 End: 07-31-2023 No alcohol use No alcohol use [facility] Comment on above: 3 TEA WEEK; How often to you hav e a drink containing alcohol? Never [facility] Average Number of Drinks Not on file [facility] Start: 07-28-2020 Gender identity Identifies as female gender (finding) [facility] Start: 07-03-2021 Sexual orientation Heterosexual (fin ding) [facility] Start: 06-05-2023 End: 06-05-2023 Tobacco smoking status NHIS Smoker (finding) [facility] Start: 1970 Sex Assigned At Not on file [facility] Start: 10-23-2023 End: 01-10-2024 Alcohol intake Ex-drinker (finding) No [facility] Medical Equipment Procedure Code Equipment Code Equipment Original Text Equipment Identifier Dates Fibertak [place] Self-Punching Knotless 2.6mm W/No 5 Suture [id number] Start: 10-14-2020 Fibertak [place] Knotless 2.6mm [id number] Start: 10-14-2020 [place] Swivelock C 4.75mm Biocomposite Peek 19.1mm Suture Closed Eyelet - [id number] Start: 10-14-2020 Sling Gynecare T vt Exact Gynecological Stress Urinary Incontinence - [id number] Start: 12-24-2021 DISC CERVICAL 13 X15X5H MOBI-C FDA Start: 09-20-2017 DISC CERVICAL 13 X15X5H MOBI-C FDA Start: 09-20-2017 DISC CERVICAL 13 X15X5H MOBI-C FDA Start: 09-20-2017 DISC CERVICAL 13 X15X5H MOBI-C FDA Start: 09-20-2017 DISC CERVICAL 13 X15X5H MOBI-C FDA Start: 09-20-2017 Generator Nrstm - [id number] Start: 01-02-2024 Lead Ns Respirat ory - [id number] Start: 01-02-2024 Lead Nrstm Inspr 3 Elect Cuf Tnl Boni Strl Lf - [id number] - [id number] Start: 01-02-2024 Lead Intrstim Mr amena 28cm - [id number] Start: 01-26-2024 Interstim X Rech arge Free Neurostimulator - [id number] Start: 01-26-2024 Clinical Notes 10-27-2020 to 02-20-2024 Telephone Encounter - Denisse Truong RN - 02/20/2024 7:24 AM EDTCLissa carl APRN.KWESI - 02/11/2024 3:14 PM EDTTelephone Encounter - Radha Dunham MD - 01/27/2024 10:44 AM EDTPatient Instructions Note Date & Type Note Facility 02-20-2024 Miscellaneous Notes Pt sent mc message 13 days ago requested diflucan for an on going yeast infection from antibiotics given for a procedure. Please advise. Pt of MEREDITH 11/21/23: The patient tolerated the procedure well. We will see how she does over the next week and plan for interstim stages 1/2 in the OR. Denisse Truong RN February 20, 2024 7:32 AM documented in this encounter [facility] 02-11-2024 Note HNO ID: [id number] Author: LISSA DOYLE APRN.KWESI Service: ? Author Type: Nurse Practitioner Type: Progress Notes Filed: 02/11/2024 15:16 Note Text: Visit cancelled. Patient checked into [employer] online system for My ongoing yeast infection. I've tried 3 Diflucan. . Connected to visit, advised PCP or local Express/Urgent Care in person evaluation. Patient verbalized understanding and comfortable with plan. Nontoxic appearance. Lissa Doyle APRN.KWESI [facility] 02-11-2024 History of Present illness Narrative Visit cancelled. Patient checked into [facility] online system for My ongoing yeast infection. I've tried 3 Diflucan. . Connected to visit, advised PCP or local Express/Urgent Care in person evaluation. Patient verbalized understanding and comfortable with plan. Nontoxic appearance. Lissa Doyle APRN.GRAPHIC SPECIALIST documented in this encounter [facility] 02-07-2024 Note SLEEP/NEUROLOGY CLIN IC FOLLOW-UP EVALUATION Date of Evaluation: 02/07/24 Referring Physician: Dr Eliceo Gómez MD Chief Complaints: Trouble sleeping, Trouble falling asleep, Trouble staying asleep, headaches, restless leg syndrome History of Presenting Illness and Interval History: CHUCKIE: Mary Leal is a 53 y.o. woman presenting to clinic for a follow-up visit. She was last seen in the neurology clinic on 10/23/23. On that visit, we continued her on Requip a 1mg a.m.-2mg p.m.. She was planned to follow-up with Dr. Dawkins for further evaluation/treatment with Inspire therapy, since she had tried and failed CPAP therapy in December 2022. She was also continued on Aimovig injections for headache prophylaxis, and Nurtec for abortive use. In the interim, she underwent inspire implantation on 01/02/2024. She followed up with Dr. Dawkins on 01/10/2024 with no concerns with the wound healing. Previously, she had underwent DISE on 09/19/2023, which confirmed that she was eligible for device. She returns today for activation of device. Her wounds are healing well, with no signs of infection, although she did have some pain in the chest wound. She denies any issues with tongue movements, speech or swallowing. As you may recall, after her diagnosis of CHUCKIE in September 2022, she sought a second opinion from sleep medicine at [facility], and saw Dr. Yoni Tuttle on 10/14/2022. She was subsequently started on auto-CPAP 5-15 cm H2O with nasal mask in December 2022. She uses the CPAP for about a week, and had severe intolerance and felt suffocated. She had severe pressure and mask intolerance, and despite changes in masks and pressure settings she was not able to tolerate it leading to discontinuation. She also stated that her PTSD symptoms got worse while on CPAP. Afterwards, we recommended following-up with a dentist for workup for an oral appliance for CHUCKIE. After exploring a few options, she was not able to find a dentist who would take her insurance. At that time, she was referred to Dr. Dawkins for evaluation for Inspire therapy. Insomnia: She is also taking Quiviviq 50 mg at night, which helps her symptoms of insomnia very well, with no side effects. This is reflected below in her sleep latency and nocturnal awakenings. She has failed a plethora of other medications in the past, as detailed below in the table RLS: Restless legs symptoms started in 2018 and are very well controlled with ropinirole (current dose is 1 mg a.m.-2 mg p.m.). Her serum Ferritin was checked in 2019, and was 93 ng/mL. She denies any side effects, in particular mood changes, ankle swelling, syncopal episodes, sudden sleep attacks or symptoms concerning for dopamine dysregulation syndrome. Migraine Headaches: Her headaches had improved significantly on Ajovy injections, which she has been getting consistently each month. She denies any side effects from it. She admits to chronic constipation, which does not seem to have worsened with the use of Ajovy. She has not needed to take any abortive medications in months now. Background history: Sleep Problems: She reports sleep problems as a child for as long as she can remember. She always had trouble falling asleep and wake up early in the morning. She has bipolar, depression, anxiety, ADHD, Restless Leg Syndrome. She cannot fall sleep without medication. She reported gradual worsening of her sleep throughout adulthood. She tried various medications in the past that either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 surgery (this includes no gum, mints, smoking). I am allowed to drink small amounts (up to 12 oz) of clear liquids up until 2 hours prior to my arrival time. Clear liquids include water, fruit juices without pulp, carbonated beverages (i.e. farida disha), electrolyte beverages (i.e. Gatorade), clear tea and black coffee, clear broth, popsicles and jello. (No milk). No alcohol the day before or day of surgery. MEDICATION STOPPAGE: Unless my surgeon tells me differently, I will STOP THESE MEDICATIONS 7 DAYS PRIOR TO SURGERY: (Motrin/ibuprofen/Naproxen/Aleve/ Advil), Aspirin, vitamin E, herbal medications, diet pills, and aujt-lxv-drbhysa medications. Tylenol (acetaminophen) is okay. I will not wear jewelry, body piercing(s), makeup, nail british virgin islander, hairpins, or contacts on the day of surgery. I am to leave valuables and money at home or with family members. If I am prescribed inhalers for breathing, I will use them and bring them to the hospital. Medication(s) to be taken on the morning of surgery with a few sips of water: If I am taking any of the following blood thinning medications - Aspirin, clopidogrel (Plavix), ticagrelor (Brilinta), prasugrel (Efficient), ticlodipine (Ticlid), warfarin (Coumadin), dibigatran (Pradaxa) or rivaroxaban (Xarelto) - I will discuss whether or not I should stop them before surgery with my surgeon. Discuss medication changes with your carpet yarn winder operator or primary care physician as well. If I stopped taking my blood-thinning medication, I will ask the surgeon when to resume taking it. If I am an outpatient, a responsible person will drive me home and it was suggested that someone stay with me for 24 hours. I understand that a business office associate or cabdriver is NOT a responsible caregiver. Patients with diabetes, I will not take my morning diabetes medication (pills) on the morning of surgery. If I am on insulin, someone has gone over those instructions with me for the morning of surgery. I understand if my surgery is delayed, I will notify the check in desk that I have diabetes. See the Diabetic Guidelines Before Surgery in the patient education section. If I have Obstructive Sleep Apnea and use a CPAP/BiPAP machine, I will bring my mask, tubing, and machine with me on the day of surgery. To find out my arrival time for surgery, I must call my surgical technology instructor after 2pm the day before surgery. PREOP INSTRUCTIONS THE DAY OF SURGERY/CHECK IN Report to DESK J1-9 for surgery. A map is located in Your Surgical Guide Book. The online version of the surgical guide book can be found at: [email or web address] The address is [address] [place] [address] [address] INFECTION PREVENTION Please notify your doctor if you have any signs of an infection (i.e. fever, severe cough, nasal congestion, pain with urination, abnormal vaginal discharge, diarrhea, etc). Your surgeon will let you know if a bowel prep is needed before your surgery. If so, please see the attached instructions. Shower the night before surgery AND the morning of surgery with Hibiclens (provided by your surgeon). If you are allergic to Hibiclens or unable to obtain the Hibiclens, please wash with antibacterial soap. Wash your body from the neck down, focusing on your abdomen, belly button and external genitalia. Do not forget to scrub any skin folds and creases. No lotions, oils, creams, or powders after your shower. Underarm deodorant is okay. No shaving (abdominal or pubic hair) or douching the day before surgery. You may be asked to apply an antiseptic solution called Chlorhexidine Gluconate (CHG) which will be provided to you on arrival to the preop area. Hand washing is extremely important in preventing infection (for both you as the patient and for the caregivers). HOSPITALIZATION Before you leave the hospital, you typically need to be able to eat/drink, urinate, and have your pain controlled with oral medication. Your surgeon or other members of your surgeon s team will discuss any other specific medical issues related to your discharge with you. Your surgeon may order intermittent compression sleeves. These are massaging leg pumps to help prevent blood clots after surgery. See Your Surgical Guide Book for more information. It is also very important that you walk as soon as possible and as frequently as possible after surgery. This will help decrease your risk of blood clots, exercise your lungs and speed up your recovery after surgery. If you are admitted to the hospital overnight, you will be given an incentive spirometer, which is a breathing machine that will help make sure that you are taking deep breaths and expanding your lungs while in the hospital. See Your Surgical Guide Book for more information. [facility] TEAM At the [facility], we have a multidisciplinary team of caregivers that includes fellows, residents, nurse practitioners, physician assistants, clinical nurse specialists, nurses, medical assistants, patient care nursing assistants, social workers, heel caser and many others. We all have different roles and responsibilities but we are all here to help. SACRAL NEUROMODULATION UROGYNECOLOGY POSTOP INSTRUCTIONS ACTIVITY No heavy lifting/pushing/pulling for 1 week. Do not lift anything more than 10 lbs, vacuum, push heavy doors or grocery carts, etc. You may climb stairs as tolerated. You may return to work when directed by your physician. Please contact your doctor if you need any return to work letters or medical leave paperwork to be completed. WOUND CARE You may leave the hospital with a bandage on your incision. If you are undergoing the testing phase with an external stimulator, do not remove the bandage covering your incision. If you do not have a bandage covering your incision, wash your incision daily with a mild antibacterial soap and water. Pat your incision dry with a clean towel. Wash your hands frequently, especially before touching your incision. PAIN MANAGEMENT After you go home, you should take the prescribed acetaminophen (Tylenol) and ibuprofen (Motrin) as directed. We recommend rotating the timing of these medications so that you are taking one of these medications every 3 to [address], you can help prevent pain. After the first 72 hours, you can take these medications as needed. OTHER MEDICATIONS Your doctor may have prescribed you an antibiotic to take for several days after your procedure. Please complete the entire course of antibiotics. Please check your discharge instructions about when to resume other medications. WHAT TO EXPECT AT HOME Recovery from surgery is generally 1 week, but sometimes longer for more strenuous activity. WHEN TO CALL YOUR DOCTOR: Fever (>100.4 F or 38.0 C) or chills. Incision problems such as redness, warmth, swelling, or foul-smelling drainage. Severe pain not relieved with pain medication. Pain and swelling in your legs, especially if it is only on one side and not the other. Pain with urination, cloudy urine, or foul-smelling urine. Or if you have any other problems or questions. CALL 911 OR GO TO THE EMERGENCY ROOM IF YOU HAVE: shortness of breath, difficulty breathing, or chest pain. Please DO NOT use MyChart for post-surgery concerns. documented in this encounter [facility] 01-10-2024 History of Present illness Narrative [facility] - ENT [address] , [place] [id number] SUBJECTIVE: Patient ID ([id number]): Mary Leal is a 53 y.o. female presents today for No chief complaint on file. HPI: Mary Leal presents to clinic for 1 week post op follow up. She underwent Inspire implantation on 01/26/24. No concerns. HISTORY: Past Medical History: Diagnosis Date ADD (attention deficit disorder) Allergic rhinitis 11/16/2015 Anxiety Asthma Atopic dermatitis 04/09/2020 Basal cell carcinoma (BCC) of chest 04/04/2023 Bipolar disorder ([facility]) Chronic interstitial cystitis 04/06/2023 Chronic sinusitis 07/07/2022 [...] 03/20/2020 Performed by Noman Mayo MD at [facility] ENDOSCOPY EGD, DILATATION N/A 09/25/2020 Performed by Noman Mayo MD at [facility] ENDOSCOPY ENDOSCOPIC DIAGNOSTIC DRUG INDUCED SLEEP Bilateral 09/19/[address]formed [address] Cullen Dawkins MD at [facility] FOOT SURGERY 06/25/2020 left foot surgery FOOT SURGERY Right 10/2022 and 05/2023 HYSTERECTOMY 2015 LASER LINGUAL TONISILLECTOMY Circumferential 07/08/2021 Performed by Areli Avila MD PhD at [facility] MRI FOOT LEFT NECK SURGERY 2017 PLANTAR FASCIECTOMY RELEASE PHARYNGEAL SCAR CPT 39295 Circumferential 07/08/2021 Performed by Areli Avila MD PhD at [facility] RESECTION SUBMUCOSAL NASAL Bilateral 02/11/2021 Performed by Areli Avila MD PhD at [facility] ROTATOR CUFF REPAIR Right SEPTOPLASTY Circumferential 02/11/2021 Performed by Areli Avila MD PhD at [facility] TONSILLECTOMY Bilateral 02/11/2021 Performed by Areli Avila MD PhD at [facility] TOTAL COLECTOMY 03/2022 uvuloplasty N/A 02/11/2021 Performed by Areli Avila MD PhD at [facility] Family History Problem Relation Age of Onset [...] in the morning. Indications: gastroesophageal reflux disease. araujyrexfo-poswozyno-nmnmqnkb (TRELEGY ELLIPTA) 100-62.5-25 mcg blister with device [...] mg 2.5 mg nebulization PRN Gwendolyn Stroud APRN-GRAPHIC SPECIALIST REVIEW OF SYSTEMS: Review of Systems Data [...] to ensure the accuracy of this automated engineering inspector, some errors in engineering inspector may have occurred. Iam Siddiqi 01/10/24 0753 documented in this encounter [facility] 01-10-2024 Instructions Cullen Dawkins MD - 01/10/2024 [...] test result within 7 days, please call [phone] to leave a request for your results. [...] Ultrasound, MRI or PET scan, please call [employer] [facility] Scheduling at [phone]. If you need to be scheduled for surgery, please call Aiden Augustin Surgery Coordinator at [phone], or Lazara at [phone] or our main number [phone] if you have not received a return [...] (and medications that contain aspirin): Many non-prescription (oeju-kyj-lewrvyq or OTC) medications contain aspirin. If you are unsure whether a medication you take has aspirin, please ask your pharmacist or your surgeon's office. You must ask your surgical team if they want you to continue taking, or stop taking aspirin before your procedure. Medications containing aspirin that should be stopped 7 days before surgery: [place] Anacin Aspirin Fiorinal Ascriptin Carlos Bufferin Lortab [...] Chamomile Creatine Echinacea Ephedra Fish Oil Garlic Farida [place] biloba Ginseng Glucosamine- Chondroitin Glutamine Goldenseal L-carnosine Licorice Kava kava Milk thistle Multivitamin [place]-3 Resveratrol Skullcap Michael's wort Vitamin E Adipex (phentermine) Glenn (orlistat) Hydroxycut Garcinia Cambogia Raspberry Ketones [id number]-[id number] should be stopped 14 days before surgery You will receive specific instructions regarding your insulin and anti-coagulant/anti-platelet medications (if applicable). [email or web address] 12-27-2023 Miscellaneous Notes PATIENT NOTIFIED WITH SURGERY TIME OF 11:00. TOLD TO ARRIVE 2 HOURS PRIOR. documented in this encounter [email or web address] 12-27-2023 Telephone encounter Note PATIENT NOTIFIED WITH SURGERY TIME OF 11:00. TOLD TO ARRIVE 2 HOURS PRIOR. [facility] 12-25-2023 Miscellaneous Notes See [facility] [...] distance health visit in this department: 10/25/2021 As[employer]er [employer], Nurse Next visit in this department: 01/25/2024 documented in this encounter [facility] 12-20-2023 History and physical note PRE-ADMISSION TESTING HISTORY AND PHYSICAL EXAM DATE: 12/20/23 PCP: ELICEO GÓMEZ JR, DO CHIEF COMPLAINT: CHUCKIE (obstructive sleep apnea) HISTORY OF PRESENT ILLNESS: Mary Leal, a 53 y.o. White or female, presents to [facility] for a pre-surgical H&P for a planned insertion of hypoglossal nerve stimulator. She complains of CHUCKIE. She states she was diagnosed about 5 years ago. She has been unable to tolerate the Cpap. PAST MEDICAL HISTORY: Past Medical History: Diagnosis Date ADD (attention deficit disorder) Allergic rhinitis 11/16/2015 Anxiety Asthma Atopic dermatitis 04/09/2020 Basal cell carcinoma (BCC) of chest 04/04/2023 Bipolar disorder ([facility]) Chronic interstitial cystitis 04/06/2023 Chronic sinusitis 07/07/2022 [...] 03/20/2020 Performed by Noman Mayo MD at [facility] ENDOSCOPY EGD, DILATATION N/A 09/25/2020 Performed by Noman Mayo MD at [facility] ENDOSCOPY ENDOSCOPIC DIAGNOSTIC DRUG INDUCED SLEEP Bilateral 09/19/2023 Performed by Cullen Dawkins MD at [facility] FOOT SURGERY 06/25/2020 left foot surgery FOOT SURGERY Right 10/2022 and 05/2023 HYSTERECTOMY 2015 LASER LINGUAL TONISILLECTOMY Circumferential 07/08/2021 Performed by Areli Avila MD PhD at [facility] MRI FOOT LEFT NECK SURGERY 2017 PLANTAR FASCIECTOMY RELEASE PHARYNGEAL SCAR CPT 18510 Circumferential 07/08/2021 Performed by Areli Avila MD PhD at [facility] RESECTION SUBMUCOSAL NASAL Bilateral 02/11/2021 Performed by Areli Avila MD PhD at [facility] ROTATOR CUFF REPAIR Right SEPTOPLASTY Circumferential 02/11/2021 Performed by Areli Avila MD PhD at [facility] TONSILLECTOMY Bilateral 02/11/2021 Performed by Areli Avila MD PhD at [facility] TOTAL COLECTOMY 03/2022 uvuloplasty N/A 02/11/2021 Performed by Areli Avila MD PhD at [facility] FAMILY HISTORY: Family History Problem Relation Age [...] Indications: gastroesophageal reflux disease., Disp: , Rfl: lfpaafqnyua-ygyrdvpvj-utfnnjqq (TRELEGY ELLIPTA) 100-62.5-25 mcg blister with device, Inhale 1 puff in the morning., Disp: 60 each, Rfl: 5 fremanezumab-vfrm (AJOVY AUTOINJECTOR) 225 mg/1.5 mL, inject 1 AND [...] mg, 2.5 mg, nebulization, PRN, Gwendolyn Stroud, PUBLISHING SPECIALIST-GRAPHIC SPECIALIST REVIEW OF SYSTEMS: Review of Systems Constitutional: [...] the most recent lab values available in [facility] at the time of the office visit and additional labs may have been drawn since that time. ASSESSMENT / DIAGNOSIS: CHUCKIE (obstructive sleep apnea) PLAN: Mary Leal is scheduled for Insertion Stimulator Nerve Hypoglossal - Right with Dr. Dawkins on 01/02/2024. Vilma Sutton APRN-GRAPHIC SPECIALIST 12/20/23 1240 [facility] [place] 12-20-2023 History and physical note PRE-ADMISSION TESTING HISTORY AND PHYSICAL EXAM DATE: 12/20/23 PCP: ELICEO GÓMEZ JR, DO CHIEF COMPLAINT: CHUCKIE (obstructive sleep apnea) HISTORY OF PRESENT ILLNESS: Mary Leal, a 53 y.o. White or female, presents to [facility] for a pre-surgical H&P for a planned insertion of hypoglossal nerve stimulator. She complains of CHUCKIE. She states she was diagnosed about 5 years ago. She has been unable to tolerate the Cpap. PAST MEDICAL HISTORY: Past Medical History: Diagnosis Date ADD (attention deficit disorder) Allergic rhinitis 11/16/2015 Anxiety Asthma Atopic dermatitis 04/09/2020 Basal cell carcinoma (BCC) of chest 04/04/2023 Bipolar disorder ([facility]) Chronic interstitial cystitis 04/06/2023 Chronic sinusitis 07/07/2022 [...] 03/20/2020 Performed by Noman Mayo MD at [facility] ENDOSCOPY EGD, DILATATION N/A 09/25/2020 Performed by Noman Mayo MD at [facility] ENDOSCOPY ENDOSCOPIC DIAGNOSTIC DRUG INDUCED SLEEP Bilateral 09/19/2023 Performed by Cullen Dawkins MD at [facility] FOOT SURGERY 06/25/2020 left foot surgery FOOT SURGERY Right 10/2022 and 05/2023 HYSTERECTOMY 2015 LASER LINGUAL TONISILLECTOMY Circumferential 07/08/2021 Performed by Areli Avila MD PhD at [facility] MRI FOOT LEFT NECK SURGERY 2017 PLANTAR FASCIECTOMY RELEASE PHARYNGEAL SCAR CPT 00641 Circumferential 07/08/2021 Performed by Areli Avila MD PhD at [facility] RESECTION SUBMUCOSAL NASAL Bilateral 02/11/2021 Performed by Areli Avila MD PhD at [facility] ROTATOR CUFF REPAIR Right SEPTOPLASTY Circumferential 02/11/2021 Performed by Areli Avila MD PhD at [facility] TONSILLECTOMY Bilateral 02/11/2021 Performed by Areli Avila MD PhD at [facility] TOTAL COLECTOMY 03/2022 uvuloplasty N/A 02/11/2021 Performed by Areli Avila MD PhD at [facility] FAMILY HISTORY: Family History Problem Relation Age [...] Indications: gastroesophageal reflux disease., Disp: , Rfl: bnqmicouljr-prcefveul-kuokvnxa (TRELEGY ELLIPTA) 100-62.5-25 mcg blister with device, Inhale 1 puff in the morning., Disp: 60 each, Rfl: 5 fremanezumab-vfrm (AJOVY AUTOINJECTOR) 225 mg/1.5 mL, inject 1 AND [...] mg, 2.5 mg, nebulization, PRN, Gwendolyn Stroud, PUBLISHING SPECIALIST-GRAPHIC SPECIALIST REVIEW OF SYSTEMS: Review of Systems Constitutional: [...] the most recent lab values available in [facility] at the time of the office visit and additional labs may have been drawn since that time. ASSESSMENT / DIAGNOSIS: CHUCKIE (obstructive sleep apnea) PLAN: Mary Leal is scheduled for Insertion Stimulator Nerve Hypoglossal - Right with Dr. Dawkins on 01/02/2024. Vilma Sutton APRN-GRAPHIC SPECIALIST 12/20/23 1240 documented in this encounter [facility] 12-20-2023 Instructions Earlene Whalen RN - 12/20/2023 11:45 AM EST Your surgery/procedure is scheduled at [facility] on 01/02/2024 Arrival Time Surgeon will call [facility] Address: [address] [place] [address], [address] [place] [address] in the Emergency Center Parking lot. Report to the front services agent in the Emergency/Surgery Registration lobby of the hospital. Please call Pre-Admission Clinic at [phone] if you have any questions prior to surgery. For questions the morning of surgery, please call the Pre-op Department at [phone]. Notify your SURGEON if you develop any [...] would like to schedule therapy at a [facility] facility, please call [phone] ([phone]). Do not use lotions, creams, powders, perfume, make up, cologne or after-shaves day of surgery. Remove ALL jewelry including wedding rings, body piercings, hair extensions that contain metal, nail british virgin islander, make-up, and contact lens. You may brush your teeth the morning of surgery, but do not swallow the water. Wear your dentures and partial plates to the hospital (no adhesive). Shower the night the before. If applicable, use the CHG (chlorhexidine gluconate) soap or wipes. Please be advised, [employer] has transitioned to a cashless payment system. [...] RIGHTS AND RESPONSIBILITIES As a patient at [facility], you have the right to: Receive medical care and be informed of who is taking care of you Be treated with dignity and respect Have a family member/dental sales representative of choice and your physician notified of your admission Receive information and actively participate in decisions about your care and treatment Refuse care, treatment and services Decide who may provide your support and speak for you Access scientologist and spiritual services Participate in ethical issues [...] of hospital charges and payment methods Patient/patient dental sales representative responsibilities are to: Provide information [...] in clean clothes. documented in this encounter [facility] 11-21-2023 Note HNO ID: [id number] Author: PAM WANG MD Service: ? Author [...] personal performance and is accurate and complete. [facility] 11-08-2023 Miscellaneous Notes MARSHA PENDING WITH TEJADA [id number] documented in this encounter [facility] 11-08-2023 Telephone encounter Note MARSHA PENDING WITH TEJADA [id number] [facility] 10-12-2023 Note Patient emailed stat ing she is finding another provider and will no longer be seen at this clinic. [facility] 10-12-2023 Note HNO ID: [id number] Author: Pam Wang MD Service: ? Author [...] Video-assisted cystourethroscopy was performed using a 19 British 70 and 30 degree rigid cystoscope with [...] progress note from today [facility] 10-10-2023 Note HNO ID: [id number] Author: Pam Wang MD Service: ? Author [...] PFSH obtained by others. Pam Wang MD Memorandum Statement Clerk offered: Patient declines. OBJECTIVE: BP 102/60 General: [...] which included preparing to see the patient, aqpj-tf-kzil patient care, completing clinical documentation, obtaining and/or reviewing separately obtained history, performing a medically appropriate examination, counseling and educating the patient/family/caregiver, and communicating with other HCP (more content not included)... [facility] 10-02-2023 Miscellaneous Notes Patient was called to find out if there was another pharmacy to send her medication for Diflucan. Patient stated to disregard this medication. Patient stated that she does not need this medication now and that she will be visiting her PCP tomorrow (10/03/23) to address her sickness that she had before going to [place]. She states that she was going to [...] 150 MG TABLET MEREDITH: 09/27/2023 Doris Arias APRN.[facility] ([facility]) ASSESSMENT: Mary Leal is a 53 year [...] Dr. Pam Wang documented in this encounter [facility] 09-27-2023 Note HNO ID: [id number] Author: Doris Arias APRN.GRAPHIC SPECIALIST Service: ? Author Type: Nurse Practitioner Type: [...] ache and some malodorous urine. Patient in [place], unable to come in for visit. Has [...] urination is normal and pressure with urinating MANAGER AGRICULTURE: denies abnormal vaginal bleeding, no vaginal discharge [...] Making Level: 3 - Low Doris Arias APRN.[facility] 09-27-2023 Miscellaneous Notes Scheduled 10/10/23 [...] which included preparing to see the patient, iuhq-gw-shvc patient care, completing clinical documentation, obtaining and/or [...] Office will call to schedule cystoscopy. Urogynecology [facility] Main provided: Pam Wang Staff Physician, Department of Urogynecology and Pelvic Floor Disorders Worsening frequency and urgency of urination. Is a urine culture indicated? Please review/advise Lex Vieyra RN documented in this encounter [facility] 09-19-2023 Note Patient states she m istook this medication and has been off for 7 days. Restarting it at the 25mg dose. [facility] 09-11-2023 Note HNO ID: [id number] Author: Jairon Lai MD Service: ? Author Type: Physician Type: Progress Notes Filed: 09/11/2023 1:18 PM Note Text: [facility] [...] flow Jairon Lai MD [facility] 09-11-2023 Note HNO ID: [id number] Author: Phil Beckford MD Service: ? Author [...] +/- discussion of SNM [facility] 09-01-2023 Note Spoke with patient. Canceling valium script. Increasing ativan dose to bid with current bottle for mgmt of anxiety. Appoitment on Saturday 09/08 - she will bring in ativan to count tablets. She states she has 20 left as of today. She should have 4 left at that appointment. [facility] 09-01-2023 Note Mary has been hav [...] Ativan at pharmacy in order to pick pulling machine operator 1 weeks worth of Valium 5mg bid #16, to get her to her next appointment on 09/08. 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 Respiratory: Negative. Cardiovascular: Negative. Psychiatric/Behavioral: dysphoric mood, irritability, insomnia Date of Telehealth Visit: 08/23/23 Chief Complaint Patient presents with Telehealth Audio/video Visit [email or web address] The patient was notified that using 3rd libertarian telecommunication application (e.g., Redbooth) is not HIPPA compliant and may carry some privacy risks. Yes The visit was conducted [id number] with the use of audio and video technology [employer] between patient and provider for a virtual [...] Wear CPAP/ Insp (more content not included)... [facility] 08-21-2023 Note Est [facility] 08-12-2023 Emergency department Note Discharge, follow up, referral, and prescription information reviewed and explained; all questions and concerns addressed. Patient A/Ox3 in NAD, resp. easy unlabored upon discharge, escorted to exit by staff. [facility] 08-12-2023 Emergency department Note Discharge, follow [...] gastroparesis, gastroenteritis, acute cholecystitis, pancreatitis, less likely NM The patient's initial and delta troponin are negative. EKG does not demonstrate any ischemic changes. Low suspicion for NM. Her urinalysis is negative for UTI. Urine [...] follow-up. She was instructed to call her elevator adjuster and PCP to schedule follow-up appointments. She was instructed to return to the emergency department if she has any new or worsening symptoms. Patient agreeable plan of care. Return precautions discussed at bedside. Spoke with Dr. Salmon regarding patient. Physician to complete their own physical exam and evaluation. Collaboration performed between this COMPENSATION DIRECTOR and physician regarding patient's plan of care. [...] following orders were created for panel order [facility]. Procedure Abnormality Status --------- ------ Gold Top[[id number]] Final result LIGHT BLUE TOP[[id number]] Final result Dark Green Top[[id number]] Final result Please view results for these tests on the individual orders. GOLD TOP LIGHT BLUE TOP DARK GREEN TOP TROPONIN I Records reviewed: Urogynecology telemedicine visit 08/07/2023 ENT visit 07/11/2023 Family medicine visit 07/06/2023 eLv Ritter APRN CNP 08/12/23722 Emily at bedside Ambulates to triage with C/O sudden epigastric gnawing, burning pain that woke her from sleep. Also reports wheezing. States nausea. Denies fever. Alert. Respirations easy and unlabored. Skin PWD. NAD noted. documented in this encounter [facility] 08-12-2023 Hospital Discharge instructions Lev Ritter [...] cannot be sent through Care Everywhere.Abdominal Pain (Stateless [place])documented in this encounter [facility] 08-12-2023 Emergency department Note Report to Les GAMBINO [facility] 08-12-2023 Physician Emergency department Note Images [...] gastroparesis, gastroenteritis, acute cholecystitis, pancreatitis, less likely NM The patient's initial and delta troponin are negative. EKG does not demonstrate any ischemic changes. Low suspicion for NM. Her urinalysis is negative for UTI. Urine [...] follow-up. She was instructed to call her elevator adjuster and PCP to schedule follow-up appointments. She was instructed to return to the emergency department if she has any new or worsening symptoms. Patient agreeable plan of care. Return precautions discussed at bedside. Spoke with Dr. Salmon regarding patient. Physician to complete their own physical exam and evaluation. Collaboration performed between this COMPENSATION DIRECTOR and physician regarding patient's plan of care. [...] following orders were created for panel order [facility]. Procedure Abnormality Status --------- ------ Gold Top[[id number]] Final result LIGHT BLUE TOP[[id number]] Final result Dark Green Top[[id number]] Final result Please view results for these tests on the individual orders. GOLD TOP LIGHT BLUE TOP DARK GREEN TOP TROPONIN I Records reviewed: Urogynecology telemedicine visit 08/07/2023 ENT visit 07/11/2023 Family medicine visit 07/06/2023 Lev Ritter APRN GRAPHIC SPECIALIST 08/12/23722 [facility] 08-12-2023 Emergency department Note Emily at bedside [facility] 08-12-2023 Emergency department Triage note Ambulates to triage with C/O sudden epigastric gnawing, burning pain that woke her from sleep. Also reports wheezing. States nausea. Denies fever. Alert. Respirations easy and unlabored. Skin PWD. NAD noted. [facility] 08-07-2023 Note HNO ID: [id number] Author: Pam Wang MD Service: ? Author [...] no Pain: no Abnormal Vaginal Discharge: no MANAGER AGRICULTURE 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 She has no history of an abnormal mammogram with cysts on US LMP: No LMP recorded. Patient has had a hysterectomy.; Menopause 3 years ago; hysterectomy in 2015: Menstrual history: NA; Deliveries: I have confirmed and edited as necessary, the PFSH obtained by others. Pam Wang MD Memorandum Statement Clerk offered: Patient declines. OBJECTIVE (Virtual) There were [...] which included preparing to see the patient, sgoc-ux-spbi patient care, completing clinical documentation, obtaining and/or reviewing separately obtained history, counseling and educating the patient/family/caregiver, ordering medications, tests, or procedures, and communicating with other HCPs (not separately reported). Pam Wang MD [facility] 07-31-2023 Note HNO ID: [id number] Author: Nelsy Chávez APRN.GRAPHIC SPECIALIST Service: ? Author Type: Nurse Practitioner Type: [...] new Pain: no Abnormal Vaginal Discharge: no MANAGER AGRICULTURE 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 She has no history of an abnormal mammogram with cysts on US LMP: No LMP recorded. Patient has had a hysterectomy.; Menopause 3 years ago; hysterectomy in 2014: Menstrual history: NA; Deliveries: I have confirmed and edited as necessary, the PFSH obtained by others. Nelsy Chávez APRN.GRAPHIC SPECIALIST Memorandum Statement Clerk offered: Patient declines. OBJECTIVE: There were no [...] for now d/t side effects Nelsy Chávez APRN.GRAPHIC SPECIALIST I spent a total of 45 minutes on the date of the service which included preparing to see the patient, szly-te-hpiu patient care, completing clinical documentation, performing a medically appropriate examination, counseling and educating the patient/family/caregiver and ordering medications, tests, or procedures. [facility] 07-31-2023 History of Present illness Narrative [...] new Pain: no Abnormal Vaginal Discharge: no MANAGER AGRICULTURE 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 She has no history of an abnormal mammogram with cysts on US LMP: No LMP recorded. Patient has had a hysterectomy.; Menopause 3 years ago; hysterectomy in 2015: Menstrual history: NA; Deliveries: I have confirmed and edited as necessary, the PFSH obtained by others. Nelsy Chávez APRN.CNP Memorandum Statement Clerk offered: Patient declines. OBJECTIVE: There were no [...] which included preparing to see the patient, adhg-ne-hskg patient care, completing clinical documentation, performing a medically appropriate examination, counseling and educating the patient/family/caregiver and ordering medications, tests, or procedures. documented in this encounter [facility] 07-25-2023 Note Patient: Mary arriaza Procedure Summary Date: 07/25/23 Room / Location: [facility] Main OR Anesthesia Start: 1105 Anesthesia [...] per anesthesia protocol. No notable events documented. [facility] 07-25-2023 Note Patient: Mary arriaza Procedure Summary Date: 07/25/23 Room / Location: [facility] Main OR Anesthesia Start: 1104 Anesthesia Stop: Procedures: EGD DIAGNOSTIC COLONOSCOPY Diagnosis: Gastroesophageal reflux disease without esophagitis Nausea Diarrhea, unspecified type Scheduled Providers: Matteo Quinones MD; Blanquita Ramirez MD Responsible Provider: Blanquita Ramirez MD Anesthesia Type: MAC ASA Status: 3 Anesthesia Post [facility] Patient Monitor: direct observation Transport: uneventful Patient condition is: stable [facility] 07-25-2023 Note Patient: Mary arriaza Procedure Information Date/Time: 07/25/23 1100 Scheduled providers: Matteo Quinones MD; Blanquita Ramirez MD Procedures: EGD DIAGNOSTIC COLONOSCOPY Location: [facility] Main OR Relevant Problems Anesthesia (+) [...] who. Plan discussed with resident, CAA and OVERHEAD LINE WORKER. 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 Do not wear perfume, make-up, nail british virgin islander, or lotions on the day of your [...] need to make any changes, please call [phone]. Notify your surgeon if you develop any illness such as a cold, cough, fever, sore throat or vomiting between now and your surgery. Thank you for entrusting us with your care. [facility] Surgical Services Team [facility] 06-08-2023 Note Psych Progress Note Time In: 925 Time Out: 940 HPI Present at Visit: basia Hernandez, BLUEPRINT MACHINE OPERATOR student Location of Service: Office Review of Systems Constitutional: Negative. Respiratory: Negative. Cardiovascular: Negative. Psychiatric/Behavioral: Negative. Date of Telehealth Visit: 06/08/23 Chief Complaint Patient presents with Telehealth Audio/video Visit [email or web address] The patient was notified that using 3rd libertarian telecommunication application (e.g., Redbooth) is not HIPPA compliant and may carry some privacy risks. Yes The visit was conducted [id number] with the use of audio and video technology [employer] between patient and provider for a virtual [...] hygiene. No medication changes today. Denies depression, jhon, generalized anxiety. Current Presenting Symptoms/Problems: Mood: Good [...] dictated by speech recognition. Minor errors in engineering inspector may be present. Information on after hour access to care was provided - encouraged to use 911, [facility], their [facility] crisis hotline, or the nearest emergency room in the event of a crisis. Also informed of 24 hour access at [facility] and if in crisis after regular business hours may call the hospital payloader operator [phone]; and ask to speak with the certified residential medication aide on-call. Patient Rights and Responsibilities were discussed, [...] get back t (more content not included)... [facility] 05-31-2023 Note [facility] Gastroenterolog y New Patient Visit - History & Physical CHIEF COMPLAINT Chief Complaint Patient presents with Nausea GERD Abdominal Pain New Patient HISTORY OF PRESENT ILLNESS: Mary Leal is a 53 y.o. female new patient referred by Dr. Gómez for gastroparesis, GERD, and abdominal pain. Past medical history includes gastroparesis ( was evaluated by DR Masters at [facility]) and total abdominal colectomy with [...] sig was done Nov [address] Matsers Ms Leal states she allison s not [...] Abnormal mammogram Arthritis (more content not included)... [facility] 05-22-2023 Note You are not granted access to view this sensitive note. [facility] 05-17-2023 Note Psych Progress Note Time In: 1245 Time Out: 110 HPI Present at Visit: Mary Location of Service: Office Review of Systems Constitutional: Negative. Respiratory: Negative. Cardiovascular: Negative. Psychiatric/Behavioral: Negative. Date of Telehealth Visit: 05/17/23. Chief Complaint Patient presents with Telehealth Audio/video Visit [email or web address] HPI The patient was notified that using 3rd libertarian telecommunication application (e.g., Redbooth) is not HIPPA compliant and may carry some privacy risks. Yes The visit was conducted lnnl-hx-olla with the use of audio and video technology [employer] between patient and provider for a virtual [...] dictated by speech recognition. Minor errors in engineering inspector may be present. Information on after hour access to care was provided - encouraged to use 911, Rescue Crisis, their [facility] crisis hotline, or the nearest emergency room in the event of a crisis. Also informed of 24 hour access at [facility] and if in crisis after regular business hours may call the hospital payloader operator [phone]; and ask to speak with the certified residential medication aide on-call. Patient Rights and Responsibilities were discussed, [...] alternatives to tr (more content not included)... [facility] 05-17-2023 Note You are not granted access to view this sensitive note. [facility] 04-26-2023 Evaluation note Encounter Date Diagnosis [...] Above note written by Wanda Yang LPN, Chiller Tender. Edited and approved by Dr. Beto Harris MD. [facility] Other 06-12-2023 NoteYou are not granted access to view this sensitive note.[facility]06-09-2023 NoteYou are not granted access to view this sensitive note.[facility] 04-11-2023 Miscellaneous Notes* Telephone Encounter - Serenity Jospeh MA - 04/11/2023 10:19 AM EDT MEREDITH=10/11/22 Spoke with patient she does need a refill Medication pended please file Rx request if appropriate Patient and pharmacy verified documented in this encounterMercy Health [facility]rbana Hospital06-05-2023 NoteYou are not granted access to view this sensitive note.[facility]05-15-2023 Miscellaneous Notes* Telephone Encounter - Regina Philippe - 03/20/2023 2:50 PM EDT Should patient follow up via virtual visit to discuss further? * Telephone Encounter - Steffi Ross LPN - 03/20/2023 10:20 AM EDT Patient's stool tests came back normal. Steffi Ross LPN documented in this encounterMercy Health Urbana Hospital05-15-2023 NoteYou are not granted access to view this sensitive note.[facility]05-01-2023 NoteYou are not granted access to view this sensitive note.[facility]04-24-2023 NoteYou are not granted access to view this sensitive note.[facility]04-18-2023 NotePROCEDURE: XR ANKLE RT MIN 3 [...] Electronically authenticated by: ZAIDA ACOSTA Date: 2023-02-21 10:[facility]04-18-2023 NotePROCEDURE: XR ANKLE RT MIN 3 [...] Electronically authenticated by: ZAIDA ACOSTA Date: 2023-02-21 10:[address] [place], [place] [address]604-17-2023 NoteYou are not granted access to view this sensitive note.[facility]04-13-2023 NotePsych Progress Note Time In: 2 Time Out: 2:25 HPI Present at Visit: Mary Location of Service: Office Review of Systems Constitutional: Negative. Respiratory: Negative. Cardiovascular: Negative. Psychiatric/Behavioral: Negative. Date of Telehealth Visit: 02/20/2023 Chief Complaint Patient presents with Telehealth Audio/video Visit [email or web address] HPI The patient was notified that using 3rd libertarian telecommunication application (e.g., Redbooth) is not HIPPA compliant and may carry some privacy risks. Yes The visit was conducted fcms-un-vrik with the use of audio and video technology Synergy HubEX between patient and provider for a virtual [...] dictated by speech recognition. Minor errors in engineering inspector may be present. Information on after hour access to care was provided - encouraged to use 911, Rescue Crisis, their [facility] crisis hotline, or the nearest emergency room in the event of a crisis. Also informed of 24 hour access at [facility] and if in crisis after regular business hours may call the hospital payloader operator [phone]; and ask to speak with the certified residential medication aide on-call. Patient Rights and Responsibilities were discussed, [...] as all medications m (more content not included)...[facility]04-10-2023 Note Attestation signed by Grant Biswas, PhD at 02/16/2023 2:57 PM This encounter qualifies to be billed under ???Direct Supervision??? because this patient was met by a licensed clinical psychologist upon starting treatment services with the provider who is a clinical psychology patient access representative. The licensed clinical psychologist providing supervision for [...] in office Patient Location: Via telehealth in [place] Telehealth Information Telehealth Mode: Webex (video + audio) The patient was notified that using 3rd libertarian telecommunication application is not HIPAA compliant and may carry some privacy risks: Yes Video Consent Date of Telehealth Visit: 02/13/23 The patient was notified that using 3rd libertarian telecommunication application (e.g. Redbooth) is not HIPAA compliant and may carry some privacy risks: Yes This visit was conducted xkzl-wj-jrvl with the use of audio and video technology using FireID between patient and the provider for a virtual visit. Verbal consent to provide and bill this service was obtained on: 02/13/23 No signature was obtained due to the COVID-19 pandemic. SUBJECTIVE CC: Chief Complaint Patient presents with Therapy HPI: Mary Leal is a 52 y.o. female presenting to the [facility] on 02/13/23 for management [...] (ISP): Provider: Carmen Dorsey M.A. (clinical psychology patient access representative) Frequency: 1-4 weeks Patient Needs: eleviate anxiety, [...] oriented to person, orien (more content not included)...[facility]03-28-2023 NotePROCEDURE: XR FOOT RT MIN 3 VIEWS [...] Electronically authenticated by: ZAIDA ACOSTA Date: 2023-01-31 11:55[facility]03-16-2023 Miscellaneous Notes* Telephone Encounter - Jennie Moreno RN - 01/19/2023 2:17 PM EDT Please review and advise patient. documented in this encounterMercy Health Urbana Hospital03-13-2023 Miscellaneous Notes* Telephone Encounter - Mounika Roberto PA-C - 01/16/2023 1:08 PM EDT Patient was scheduled for virtual PACC appt at 1300 today. Patient did not check in for visit. Called patient at [phone] to see if they needed any assistance logging in and left voicemail. This message routed to PACC schedulers to contact patient to reschedule PACC appt. Mounika Roberto PA-C January 16, 2023 1:09 PM documented in this encounterMercy Health Urbana Hospital03-13-2023 History and physical note * Mounika Roberto PA-C - 01/16/2023 1:00 PM EDT This is a virtual visit using AVIA video visit. It required patient-provider interaction for themedical decision making as documented below. I have communicated my name and active licensure. The patient's identity and physical location wereverified at the time of this visit. Either the patient or their legal dental sales representative has been informed of the risks and benefits of and alternatives to treatment through a remote evaluation and consents to proceed with the evaluation remotely. Surgeon: Grubic, Winston D, DO Type of surgery: GEN SURG: POP Patient scheduled for surgery on 02/08/23 . Surgery Location: [facility] Diagnosis: Preop examination (primary encounter [...] in the AM and 4 mg PM outfxhjocwy-xdeibxexc-bcuwauos (TRELEGY ELLIPTA) 100-62.5-25 mcg Inhale 1 Puff [...] pending DOS review. ASA Class: 3 Mounika Roberto PA-C January 16, 2023 12:36 PM documented in this encounterMercy Health Urbana Hospital03-13-2023 Instructions* Patient Instructions* Mounika Roberto PA-C - 01/16/2023 12:38 PM EDT PATIENT PREOPERATIVE INSTRUCTIONS Winston Hannah DO has scheduled you for your procedure at this surgery center: [facility]: [phone] -- [address] [address]. Please read below carefully for your personalized [...] Procedures: - YOU MUST HAVE A RESPONSIBLE POLICYHOLDER INFORMATION CLERK TAKE YOU HOME. A ASSISTANT PROFESSOR OF SOCIOLOGY OR INFANT CAREGIVER CANNOT BE MADE A RESPONSIBLE POLICYHOLDER INFORMATION CLERK. - We recommend that a responsible person [...] Advance Directive, please fax a copy to [phone] or email to for it to be [...] scanned into your chart that day. Mounika Roberto PA-C documented in this encounterMercy Health Urbana Hospital03-08-2023 Miscellaneous Notes* Telephone Encounter - Berta Ann RN - 01/11/2023 9:47 AM EST Procedure pended for 02/08/23. Pt aware of need for PACC. Pre-op instructions reviewed, will send to pt's MC, per pt request. Postop appt scheduled. No other questions at this time. Berta HENSON, RN Specialty Tone Artist Apprentice documented in this encounterMercy Health Urbana Hospital03-07-2023 History of Present illness Narrative* Winston Hannah, DO - 01/10/2023 9:09 AM EST Images from the original note were not included. [facility] [place] Gastroparesis/Dysmotility Follow Up This encounter was provided via two-way, live video teleconferencing within the guidelines of [facility] rules for new and established patients. The [...] of care. NAME: Mary Leal CLINIC NO: [id number] CHIEF COMPLAINT Idiopathic Gastroparesis HISTORY OF PRESENT [...] Normal gastric transit Normal small bowel transit [id number] transit in the distal bowel consistent delay [...] (FLONASE) 50 mcg/actuation nasal spray Use 1 [place] in each nostril once daily. carBAMazepine XR [...] THE LUNGS every 4 hours if needed yoaourorgbf-jnibksiea-kkblosqt (TRELEGY ELLIPTA) 100-62.5-25 mcg Inhale 1 Puff [...] dialysis. No history of symptoms or problems. MANAGER AGRICULTURE: Negative for abnormal vaginal bleeding, abnormal vaginal [...] and plan of care. documented in this encounterMercy Health Urbana Hospital02-23-2023 Miscellaneous Notes* Addendum Note - Yoni Tuttle MD - 12/29/2022 3:37 PM ESTAddended by: YONI TUTTLE MD on: 12/29/2022 03:37 PM Modules accepted: Orders documented in this encounterMercy Health Urbana Hospital02-20-2023 History of Present illness Narrative* RT [...] 26, 2022 3:17 PM documented in this encounterMercy Health Urbana Hospital02-17-2023 Miscellaneous Notes* Telephone Encounter - Erica Serrano RN - 12/23/2022 4:36 PM EST Message being addressed in another encounter that was forwarded to provider documented in this encounterMercy Health Urbana Hospital02-16-2023 History of Present illness Narrative* Winston Ludmila Hannah, DO - 12/22/2022 8:52 AM EST Images from the original note were not included. [facility] [place] Gastroparesis/Dysmotility Follow Up This encounter was provided [...] completed esophagram NAME: Mary Leal CLINIC NO: [id number] CHIEF COMPLAINT Idiopathic Gastroparesis HISTORY OF PRESENT [...] chicken spaghetti etc. Duration of symptoms (months): 5524-2995 Weight changes in last 3 months: Stable [...] Normal gastric transit Normal small bowel transit [id number] transit in the distal bowel consistent delay [...] (FLONASE) 50 mcg/actuation nasal spray Use 1 [place] in each nostril once daily. carBAMazepine XR [...] THE LUNGS every 4 hours if needed ekaiexcclrq-ozjjfighi-hluownni (TRELEGY ELLIPTA) 100-62.5-25 mcg Inhale 1 Puff [...] dialysis. No history of symptoms or problems. MANAGER AGRICULTURE: Negative for abnormal vaginal bleeding, abnormal vaginal [...] SIGNATURE: Winston Hannah DO PATIENT NAME: Mary Ornelasgs DATE: 12/22/2022 TIME: 8:57 AM Please note that portions of this documentation have been copied from the prior encounter however all information has been appropriately reviewed and modified to reflect the current clinical status and plan of care. documented in this encounterMercy Health Urbana Hospital02-15-2023 NotePROCEDURE: XR FOOT RT MIN 3 [...] Electronically authenticated by: ZAIDA ACOSTA Date: 2022-12-21 12:24[facility]02-09-2023 History of Present illness Narrative* Mary [...] TONSILLECTOMY HX 07/2021 revision VAGINAL HYSTERECTOMY 2014 [facility] 10/2015 for endometriosis, has remaining both [...] in the AM and 4 mg PM cxjtqqoqepl-uldldcrus-eixznuki (TRELEGY ELLIPTA) 100-62.5-25 mcg Inhale 1 Puff [...] which included preparing to see the patient, pqpk-ne-iilg patient care, completing clinical documentation, obtaining and/or reviewing separately obtained history, counseling and educating the patient/family/caregiver, ordering medications, quincy ts, or procedures, communicating with other HCPs (not separately reported), independently interpreting results (not separately reported), communicating results to the patient/family/caregiver, and care coordination (not separately reported). Mary Obrien MD Colorectal Surgery documented in this encounterMercy Health [facility]rbana Hospital02-08-2023 Miscellaneous Notes* Telephone Encounter - Emily Benton RN - 12/14/2022 5:19 PM EST Several attempts to reach pt unsuccessful - MC sent. * Telephone Encounter - Barber Marie - 12/02/2022 8:39 AM EST SLEEP PHONE Name of caller: Mary Leal Relationship to patient : Self In-state or jlu-iz-utpha patient: In-State Was permission obtained from patient? Yes Patient identified by Name and Date of . ( Mary Leal, 1970). Yes Reason for Call : Patient said her and Emily was chatting through my chart and Emily calledher about 5:15 yesterday. Number to return call [phone] Okay to leave a message ? Yes Last office visit 10/14/[address] Kusum vines Next office visit 01/13/[address] Tuttle virtual documented in this encounterMercy Health Urbana Hospital02-06-2023 Miscellaneous Notes* Telephone Encounter - Jet [...] and follow up testing return call to [phone] documented in this encounterMercy Health Urbana Hospital02-03-2023 Miscellaneous Notes* Telephone Encounter - MALAIKA [...] patient Summary: As noted Concerns: Procedure results Tone Artist Apprentice plan for next outreach: Will follow up Signature Nelsy Gilmore RN December 08, 2022 documented in this encounterMercy Health Urbana Hospital01-30-2023 Nurse Note* Lisa Contreras RN - 12/05/2022 1:05 PM EST [facility] ENDOSCOPY PRE PROCEDURE CALL Akiko. I'm calling from [facility] endoscopy to provide you with the information for your surgery/procedure tomorrow. 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 tbd What is the best number for your local truck driver to be reached at tomorrow for updates? tbd Your local truck driver is allowed to wait here with [...] Do not wear makeup, lotion, or finger british virgin islander. yes Patient instructed: Please bring a list [...] given Any barriers to Patient learning (confusion? Consulting Manager needed?): Patient/Patient Accounting/Finance Tutor responded appropriately on phone. If patient needs to reschedule please call: [phone] [facility] phone number: [phone] Type of instruction given: Verbal by telephone contact. documented in this encounterMercy Health Urbana Hospital01-27-2023 Nurse Note* Isra Harman RN - 12/02/2022 10:48 AM EST [facility] ENDOSCOPY PRE PROCEDURE CALL Akiko. I'm calling from [facility] endoscopy to provide you with the information for your surgery/procedure tomorrow. 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 Rich What is the best number for your local truck driver to be reached at tomorrow for updates? [phone] Your local truck driver is allowed to wait here with [...] be done on Monday.) Did you pick pulling machine operator your bowel prep pt calling [...] Do not wear makeup, lotion, or finger british virgin islander. yes Patient instructed: Please bring a list [...] given Any barriers to Patient learning (confusion? Consulting Manager needed?): Patient/Patient Accounting/Finance Tutor responded appropriately on phone. If patient needs to reschedule please call: [phone] [facility] phone number: [phone] Type of instruction given: Verbal by telephone contact. documented in this encounterMercy Health Urbana Hospital01-26-2023 NotePROCEDURE: XR FOOT RT MIN 3 [...] Electronically authenticated by: ZAIDA ACOSTA Date: 2022-12-01 11:42[facility]01-26-2023 NotePROCEDURE: XR FOOT RT MIN 3 [...] Electronically authenticated by: ZAIDA ACOSTA Date: 2022-12-01 11:42[facility]01-25-2023 History of Present illness Narrative* Isra Masters, DO - 11/30/2022 1:35 PM EST FOLLOW [...] in the AM and 4 mg PM gfovrsqsyno-bsbtfclwr-fcqugtft (TRELEGY ELLIPTA) 100-62.5-25 mcg Inhale 1 Puff [...] no edema RESPIRATORY: No dyspnea : neg MANAGER AGRICULTURE: neg The remainder of the review of [...] Isra Masters DO 11/30/2022 documented in this encounterMercy Health Urbana Hospital01-19-2023 Miscellaneous Notes* Telephone Encounter - Erica Serrano RN - 11/24/2022 3:20 PM EST This concern was addressed in the phone encounter on 11/24/22. Patient was called back and informed PreAccess will complete Prior Authorization for her sleep study. documented in this encounterMercy Health Urbana Hospital01-19-2023 Miscellaneous Notes* Telephone Encounter - Erica [...] Relationship to patient : Self In-state or trn-dg-dtwpu patient: In-State Was permission obtained from patient? Yes Patient identified by Name and Date of . ( Mary Leal, 1970). Yes Reason for Call : Patient stated she spoke to her insurance and they told her that the provider need to call Deuce to see if a PA is needed for the PAP Titration. Number to return call [phone] Okay to leave a message ? Yes Last office visit 10/14/[address] Tuttle virtual Next office visit None documented in this encounterMercy Health Urbana Hospital01-19-2023 History of Present illness Narrative* Isra Masters DO - 11/24/2022 8:29 AM EST Images from the original note were not included. CarlitosPisergey Test Report - [id number] Test start date: 11/17/2022 10:03 AM Maintainer Central Office: [email or web address] Interpretation date: 11/24/2022 Ordering physician: Isra Masters DO Referring physician: Patient Information Name: Mary Leal ID: [id number] date: 1970 Height ft. in.: 5' 4 [...] Normal gastric transit Normal small bowel transit 03oa07kcw transit in the distal bowel consistent delay post anastomosis Signature _Dr. Masters Date _11/24/2022 documented in this encounterMercy Health Urbana Hospital01-17-2023 Miscellaneous Notes* Telephone Encounter - Regina Philippe - 11/22/2022 3:37 PM EST Patient calling to verify that Smart Pill monitor was received at [facility]. Monitor was sent via Fed Ex on 11/19/22. Patient is requesting a confirmation. documented in this encounterMercy Health Urbana Hospital01-16-2023 Miscellaneous Notes* Telephone Encounter - Erica Serrano RN - 11/21/2022 9:11 AM EST AVIA message sent to patient. Prior Sleep study forwarded to MD to review, Order pended for PAP-titration for provider to review and sign if necessary. documented in this encounterMercy Health Urbana Hospital01-16-2023 History and physical note * Yodit Back PA-C - 11/21/2022 8:00 AM EST PREANESTHESIA CONSULT CLINIC TELEHEALTH VISIT Patient has been identified by name and date of : Yes This is a virtual visit using AVIA video visit. It require patient-provider interaction for [...] in the AM and 4 mg PM uzhsnusorfh-iwucjmuaj-pijmvosr (TRELEGY ELLIPTA) 100-62.5-25 mcg Inhale 1 Puff as instructed once daily. No current facility-administered medications for this visit. COVID VACCINATION STATUS: Fully vaccinated REVIEW OF SYSTEMS: Pain Assessment: General: No weight loss, malaise or fevers. Neuro: No history of TIA's, stroke, CONDITIONER TUMBLER OPERATOR tumor, impaired sensorium, hemiplegia, paraplegia or quadraplegia. [...] requiring medication, no history of angina, CHF, NM, cardiac surgery or stents. Denies rest pain, gangrene or revascularization/amputation for PVD. No history of cardiovascular symptoms or problems. + HLD GI: See HPI : No history of dysuria, frequency or incontinence,, stones or chronic kidney disease MANAGER AGRICULTURE: Negative for abnormal vaginal bleeding, abnormal vaginal [...] 8:07 AM PAGER/CONTACT #: documented in this encounterMercy Health Urbana Hospital01-12-2023 Miscellaneous Notes* Addendum Note - Yoni Tuttle MD - 11/17/2022 3:16 PM ESTAddended by: YONI TUTTLE MD on: 11/17/2022 03:16 PM Modules accepted: Orders * Telephone Encounter - Yoni Tuttle MD - 11/17/2022 3:11 PM EST 09/22/22: [facility] ([facility] AHI by 3% desat 27.1, [...] - 11/02/2022 12:33 PM EST Received from [facility] Sleep Laboratory Report via fax. 8 pages indexed to chart. documented in this encounterMercy Health Urbana Hospital01-12-2023 History of Present illness Narrative* Annmarie [...] complete. You will be wearing a Data Quality Improvement Specialist around your neck like a necklace during the test. You must keepthis near you at all times. The Data Quality Improvement Specialist has an EVENT button. You will [...] is inside your body. Return the Data Quality Improvement Specialist to the [facility] after your test is completed. Brittanie Gillespie RN documented in this encounterMercy Health Urbana Hospital01-09-2023 NotePROCEDURE: XR FOOT RT MIN 3 [...] authenticated by: ZAIDA ACOSTA Date: 2022-11-14 10:39[facility] [id number] NotePROCEDURE: XR FOOT RT MIN 3 VIEWS [...] authenticated by: NICKI DACOSTA Date: 2022-11-10 11:44[facility] [id number] Miscellaneous Notes* Telephone Encounter - Annmarie Gillespie RN - 11/10/2022 9:07 AM EST Telephoned patient with [employer] procedure appointment reminder/instructions. Brittanie Gillespie RN documented in this encounterMercy Health Urbana Hospital01-04-2023 Miscellaneous Notes* Telephone Encounter - Regina [...] to make it legit. documented in this encounterMercy Health Urbana Hospital01-04-2023 Miscellaneous Notes* Telephone Encounter - Wali Doll - 11/09/2022 9:47 AM EST SENT PATIENTS RX TO PREFERRED LOCATION [facility] [phone] Wali Doll CMA documented in this encounterMercy Health Urbana Hospital01-03-2023 Miscellaneous Notes* Telephone Encounter - Regina Philippe - 11/08/2022 11:15 AM EST Per Soumya in provider services at [facility]. No prior auth is needed,coverage is active, patient can proceed with Smart Pill. Placed a new referral. Call Ref # [id number] * Telephone Encounter - Regina Philippe - 11/02/2022 3:51 PM EST Spoke with patient. Smart Pill is a covered benefit. Sent email to Smart Pill pharmacy scheduler and [facility] to assist in scheduling Smart Pill [...] procedure, she can call Earlene Martin at [phone]. documented in this encounterMercy Health Urbana Hospital12-19-2022 Miscellaneous Notes* Telephone Encounter - Steffi [...] calling: self Call patient at: at home [phone] (home) [phone] (cell) Closing statement: Symptom Call: Thank you for calling [facility], your call is very important. A nurse will call in approximately 2-4 hours during business hours. If this is an emergency, please contact 911. Nati Hernandez documented in this encounterMercy Health Urbana Hospital12-13-2022 Miscellaneous Notes* Telephone Encounter - Brooklyn Valle LPN - 10/18/2022 2:43 PM EST Requested Prescriptions Pending Prescriptions Disp Refills Dexlansoprazole 60 mg CpDM [Pharmacy Med Name: DEXLANSOPRAZOLE DR 60 MG CAP] 30 capsule 5 Sig: take 1 capsule by mouth before breakfast Patient last seen 10/11/2022 documented in this encounterMercy Health Urbana Hospital12-12-2022 NotePROCEDURE: XR FOOT RT MIN 3 [...] Electronically authenticated by: NICKI DACOSTA Date: 2022-10-17 18:06[facility]12-12-2022 NotePROCEDURE: XR FOOT RT MIN 3 [...] Electronically authenticated by: NICKI DACOSTA Date: 2022-10-17 18:06[facility]12-12-2022 Miscellaneous Notes* Telephone Encounter - Wali Doll - 10/17/2022 9:17 AM EST Faxed order, office notes, demographics, and sleep study to: DME name: [facility] fax: [phone] DME ph: ALSO SENT A REQUEST FOR PTS PSG FROM [facility] IN [place] documented in this encounterMercy Health Urbana Hospital12-06-2022 History of Present illness Narrative* Isra [...] (FLONASE) 50 mcg/actuation nasal spray Use 1 [place] in each nostril once daily. carBAMazepine XR (TEGRETOL XR) 400 mg 12 hr tablet Take 400 mg by mouth q 12 HR. ARIPiprazole (ABILIFY) 30 mg tablet Take 30 mg by mouth once daily. albuterol HFA (PROVENTIL HFA, VENTOLIN HFA) 90 mcg/actuation inhaler inhale 2 puffs by mouth INTO THE LUNGS every 4 hours if needed svbuylilyyt-vqruunpon-xwyeknat (TRELEGY ELLIPTA) 100-62.5-25 mcg Inhale 1 Puff [...] no edema RESPIRATORY: No dyspnea : neg MANAGER AGRICULTURE: neg The remainder of the review of [...] Isra Masters DO 10/11/2022 documented in this encounterMercy Health Urbana Hospital12-05-2022 Evaluation note* Encounter Date Diagnosis Assessment [...] for rotator cuff healing or recurrent tear [facility] Other 12-01-2022 Evaluation note* Encounter Date Diagnosis [...] note writ ten by Wanda Yang LPN, Chiller Tender. Edited and approved by Dr. Beto Harris MD. [employer] Other 11-17-2022 Evaluation note* Encounter Date Diagnosis [...] regarding the risks and benefits of terminal computer operator opioid use. She understands the associated risks [...] note writ ten by Lupillo Amezquita MA, Chiller Tender. Edited and approved by Dr. Beto Harris MD. [facility] Other 11-17-2022 Evaluation note* Encounter Date Diagnosis Assessment Notes Treatment Notes Treatment Clinical Notes Sep, Lumbosacral spondylosis without myelopathy (ICD-10 - M47.817) [facility] Other 11-09-2022 Evaluation note* Encounter Date Diagnosis [...] note writ ten by Wanda Yang LPN, Chiller Tender. Edited and approved by Dr. Beto Harris MD. [facility] Other 09-21-2022 NotePROCEDURE: XR ANKLE RT MIN 3 VIEWS, XR FOOT RT MIN 3 VIEWS COMPARISON: 01/06/2021 HISTORY: Pain of right ankle joint FINDINGS: BONES:Remote osteotomy head of the first metatarsal fixed with a single screw. No acute fracture or dislocation. SOFT TISSUES:Negative. No visible soft tissue swelling. EFFUSION:None visible. OTHER: Negative. IMPRESSION: No acute abnormality Electronically authenticated by: NICKI DACOSTA Date: 2022-07-27 19:[address] [place], [place] 1295209-21-2022 NotePROCEDURE: XR ANKLE RT MIN 3 VIEWS, XR FOOT RT MIN 3 VIEWS COMPARISON: 01/06/2021 HISTORY: Pain of right ankle joint FINDINGS: BONES:Remote osteotomy head of the first metatarsal fixed with a single screw. No acute fracture or dislocation. SOFT TISSUES:Negative. No visible soft tissue swelling. EFFUSION:None visible. OTHER: Negative. IMPRESSION: No acute abnormality Electronically authenticated by: NICKI DACOSTA Date: 2022-07-27 19:10[facility]Gnwsgklr74-[facility]-2070 Miscellaneous Notes* Telephone Encounter - Silvia Ybarra - 07/26/2022 2:56 PM EDT PA for Dexlansoprazole initiated electronically. Awaiting response [employer] ID# [id number] * Telephone Encounter - Tracy Khan PSS - 07/26/2022 1:43 PM EDT Patient needs a prior authorization Medication Order name: Dexlansoprazole 60 mg CpDM Medication: DEXLANSOPRAZOLE 60 MG CAPSULE,BIPHASE DELAYED RELEASE [[id number]] Dispense as Written: No documented in this encounterMercy Health Urbana Hospital09-20-2022 History of Present illness Narrative* Mary [...] in the AM and 4 mg PM jhyvlcmeytc-nxtvqwynx-jzsesmhc (TRELEGY ELLIPTA) 100-62.5-25 mcg Inhale 1 Puff [...] (FLONASE) 50 mcg/actuation nasal spray Use 1 [place] in each nostril once daily. carBAMazepine XR [...] which included preparing to see the patient, xiyn-ra-byhc patient care, completing clinical documentation, obtaining and/or reviewing separately obtained history, performing a medically appropriate examination, counseling and educating the pat ient/family/caregiver, ordering medications, tests, or procedures, and care coordination (not separately reported). Mary Obrien MD Colorectal Surgery documented in this encounterMercy Health Urbana Hospital09-20-2022 Nurse Note* Re Sierra MA - 07/26/2022 11:12 AM EDT What is the reason for your visit today? Established patient presents for post op. Who is your referring physician? Are you having poor oral intake? NO Have you had unintentional weight loss of 15 lbs/7 Kg in the last 3-6 months? NO Bowels: Wound: none Temperature: No Drains: No documented in this encounterMercy Health Urbana Hospital08-04-2022 NotePROCEDURE: In the coronal projection, without [...] and signed by Quinton Carson on 06/09/2022 1113No[facility] Medical Meomgluian60-94-8688 Miscellaneous Notes* Telephone Encounter - Raquel Mullen - 06/07/2022 3:34 PM EDT Patient needs RX sent to [facility]. The previous was sent to [...] process accordingly. Raquel Mullen documented in this encounterMercy Health Urbana Hospital07-21-2022 Evaluation note* Encounter Date Diagnosis Assessment [...] note writ ten by Lupillo Amezquita MA, Chiller Tender. Edited and approved by Dr. Beto Harris MD. [facility] Other 07-05-2022 Evaluation note* Encounter Date Diagnosis [...] Patient care instructions given in writing by [facility] document. [facility] Other [id number] Miscellaneous Notes* Telephone Encounter - Jet Wong [...] concerns at this time. documented in this encounterMercy Health Urbana Hospital06-21-2022 Miscellaneous Notes* Telephone Encounter - Jet [...] procedure on 03/28. Thanks! documented in this encounterMercy Health Urbana Hospital06-17-2022 History of Present illness Narrative* Jessi [...] (FLONASE) 50 mcg/actuation nasal spray Use 1 [place] in each nostril once daily. carBAMazepine XR [...] THE LUNGS every 4 hours if needed yawdycsyugx-hbtgumokw-kynvvyme (TRELEGY ELLIPTA) 100-62.5-25 mcg Inhale 1 Puff [...] Sheets APRN.KWESI Colorectal Surgery documented in this encounterMercy Health Urbana Hospital06-17-2022 Nurse Note* Mary Mena MA - 04/22/2022 12:06 PM EDT .What is the reason for your visit today? Post op Who is your referring physician? Self Are you having poor oral intake? NO Have you had unintentional weight loss of 15 lbs/7 Kg in the last 3-6 months? NO Bowels: regular Wound: none Temperature: No Drains: No documented in this encounterMercy Health Urbana Hospital06-02-2022 Miscellaneous Notes* Telephone Encounter - Rachael - 04/07/2022 12:35 AM EDT Record ID: [id number] Patient name: Mary Leal Date: April 06, [...] likely is it that you would recommend [facility] to a friend or family member? -> likely Please tell me what you liked best about your hospital experience: -> The nurses documented in this encounterMercy Health Urbana Hospital05-31-2022 NoteHNO ID: [id number] Author: Pravin Ladd MD Service: Colorectal Author Type: Resident Type: Progress Notes Filed: 04/05/2022 7:52 AM Note Text: COLORECTAL SURGERY PROGRESS NOTE Mary Leal [id number] ASSESSMENT AND PLAN Mary Leal is a [...] - General Pravin Ladd MD General Surgery residentCape Cod HospitalDoifxdvj80-93-0973 NoteHNO ID: [id number] Author: Nita Lamas MD Service: Colorectal Author Type: Fellow Type: Progress Notes Filed: 04/04/2022 9:40 AM Note Text: COLORECTAL SURGERY PROGRESS NOTE Mary Leal [id number] ASSESSMENT AND PLAN Mary Leal is a [...] Nita Lamas MD Colorectal Fellow 04/04/2022 9:40 [facility]05-29-2022 NoteHNO ID: [id number] Author: Pravin Ladd MD Service: Colorectal Author Type: Resident Type: Progress Notes Filed: 04/03/2022 8:03 AM Note Text: COLORECTAL SURGERY PROGRESS NOTE Mary Leal [id number] ASSESSMENT AND PLAN Mary Leal is a [...] - General Pravin Ladd MD General Surgery ResidentCape Cod HospitalYfydzmup36-55-1819 NoteHNO ID: [id number] Author: Nancy Cadena MD Service: Colorectal Author Type: Resident Type: Progress Notes Filed: 04/02/2022 8:34 AM Note Text: COLORECTAL SURGERY PROGRESS NOTE Mary Leal [id number] ASSESSMENT AND PLAN Mary Leal is a [...] Nancy Cadena MD General Surgery Resident, PGY-2 [id number] [id number] NoteHNO ID: [id number] Author: Nancy Cadena MD Service: Colorectal Author Type: Resident Type: Progress Notes Filed: 04/01/2022 7:15 AM Note Text: Attestation signed by Mary Obrien MD at 04/01/2022 7:21 PM [facility] STAFF PHYSICIAN NOTE OF PERSONAL INVOLVEMENT IN [...] 2022 COLORECTAL SURGERY PROGRESS NOTE Mary Leal [id number] ASSESSMENT AND PLAN Mary Leal is a [...] Nancy Cadena MD General Surgery Resident, PGY-2 [id number] [id number] NoteHNO ID: [id number] Author: Yolanda Lamb MD Service: Colorectal Author Type: Resident Type: Progress Notes Filed: 03/31/2022 9:08 AM Note Text: COLORECTAL SURGERY PROGRESS NOTE Mary Leal [id number] ASSESSMENT AND PLAN Mary Leal is a [...] RESECTION AND ANASTOMOSIS - General Yolanda Lamb MDCape Cod HospitalAigbjbch72-18-5579 NoteHNO ID: [id number] Author: Pravin Ladd MD Service: Colorectal Author [...] 2022 COLORECTAL SURGERY PROGRESS NOTE Mary Leal [id number] ASSESSMENT AND PLAN Mary Leal is a 51 year old female with PMHx Asthma, HTN, BPD, Dyslipidemia and colonic inertia who is now s/p Hand assisted TAC, EI takedown + OANH 03/28 - D/C MANAGER OPERATING - Advance to GI soft diet - [...] RESECTION AND ANASTOMOSIS - General Pravin Ladd MDCape Cod HospitalVrlnxpbj80-22-8669 NoteHNO ID: [id number] Author: ELIZABETH Dias Service: Care Management Author Type: Jacquard Twine Polisher Operator Type: Care Mgt Initial Assessment Filed: 03/29/2022 [...] time ADVANCE DIRECTIVES Current Advance Directive: None Trucker Hand Attempted to Assist with AD Completion: Yes [...] Housing Stability: Not on file PATIENT SCREEN Patient/Accounting/Finance Tutor Stated Goals: To be cured/healed Under the [...] March 29, 2022 TIME: 3:45 PM PHONE: [phone] Coxikolj15-08-6919 NoteHNO ID: [id number] Author: Pravin Ladd MD Service: Colorectal Author Type: Resident Type: Progress Notes Filed: 04/01/2022 5:50 AM Note Text: COLORECTAL SURGERY PROGRESS NOTE Mary Leal [id number] ASSESSMENT AND PLAN Mary Leal is a 51 year old female with PMHx Asthma, HTN, BPD, Dyslipidemia and colonic inertia who is now s/p Hand assisted TAC, EI takedown + OANH 03/28 - MANAGER OPERATING for pain control - Magnesium replacement for [...] RESECTION AND ANASTOMOSIS - General Pravin Ladd MDCape Cod HospitalXvprclqc15-75-1474 NoteHNO ID: [id number] Author: Nathanael Craig DO Service: Anesthesiology Author Type: Anesthesiologist Type: Anesthesia Procedure Notes Filed: 03/28/2022 4:16 PM Note Text: ANESTHESIOLOGY PROCEDURE NOTE Peripheral Nerve Block General Information Procedure Start Time/Medication Administration: 03/28/2022 3:50 PM Procedure End time: 03/28/2022 3:55 PM Patient location during procedure: OR Timeout Performed Pre-procedure: timeout performed Consent Obtained: Yes 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: care hospice team lead and arm band Reason for block: post-op [...] 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 and care hospice team lead Reason for block: post-op pain management/at surgeon's [...] March 28, 2022 TIME: 4:14 PM CSN: [id number] [id number] NoteHNO ID: [id number] Author: Carmen Stanley APRN.CRNA Service: Anesthesiology Author Type: Nurse Sushi Chef Type: Anesthesia Procedure Notes Filed: 03/28/2022 9:49 AM Note Text: ANESTHESIOLOGY PROCEDURE NOTE Airway General Information Procedure Start Time/Medication Administration: 03/28/2022 9:21 AM Patient location during procedure: OR 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, care hospice team lead and patient Staffing OVERHEAD LINE WORKER: Carmen Stanley APRN.OVERHEAD LINE WORKER Performed by: BECCA Indications and Patient Condition [...] March 28, 2022 TIME: 9:49 AM CSN: [id number] NoteHNO ID: [id number] Author: Carmne Stanley APRN.CRNA Service: Anesthesiology Author Type: Nurse Sushi Chef Type: Anesthesia Procedure Notes Filed: 03/28/2022 9:49 [...] March 28, 2022 TIME: 9:48 AM CSN: [id number] Miscellaneous Notes* Telephone Encounter - Jet Wong [...] colon. Would like a call back at [phone] documented in this encounterMercy Health [facility] Hospital05-10-2022 Miscellaneous Notes* Telephone Encounter - Jennie Moreno RN - 03/15/2022 2:39 PM EDT Outside medical record EGD H Pylori biopsy received by fax. Scanned into [employer] under scanned documents. Hard copy handed to Dr. Masters. Per Dr Masters- please call patient and let her know the H Pylori biopsy is negative. Called patient . Message relayed. No questions at this time. * Telephone Encounter - Karthikeyan Turk RN - 03/15/2022 2:21 PM EDT Called [facility] and I was transferred to medical records. Requesting a cover sheet with the request result be faxed to them at [phone]. H Pylori result request faxed with confirmation. * Telephone Encounter - Karthikeyan Turk RN - 03/15/2022 2:21 PM EDT Images from the original note were not included. Isra Ila Masters DO P Sp Dd Clinical Pool Please contact [facility] [phone] to see if the H pylori biopsy is back yet from her EGD there documented in this encounterMercy Health [facility]05-10-2022 Evaluation note* Encounter Date Diagnosis Assessment [...] note writ ten by Wanda Yang LPN, Chiller Tender. Edited and approved by Dr. Beto Harris MD. [facility] Other 05-10-2022 Miscellaneous Notes* Telephone Encounter - Silvia Ybarra - 03/15/2022 1:24 PM EDT PA for Dexilant renewal initiated through [employer]. Awaiting response ID# [id number] Rx BIN [id number] Rx PCN MCAIDOH Rx Grp [id number] documented in this encounterMercy Health U[facility]ana Hospital05-10-2022 Miscellaneous Notes* Telephone Encounter - Jet Wong RN - 03/15/2022 9:28 AM EDT She called the office with complaints of dark red blood in her ostomy bag for the last 2 weeks. [place] down [place] when it [place]. She had an EGD in [place] that showed gastritis. She followed up with [...] concerns at this time. documented in this encounterMercy Health U[facility]ana Hospital05-10-2022 History of Present illness Narrative* Isra [...] seem be musculoskeletal in nature.EGD done in [facility] showed some gastritis and duodenitis. [...] (FLONASE) 50 mcg/actuation nasal spray Use 1 [place] in each nostril once daily. carBAMazepine XR [...] THE LUNGS every 4 hours if needed fkmphgpwrqb-aguakzxjv-mcxuyeus (TRELEGY ELLIPTA) 100-62.5-25 mcg Inhale 1 Puff [...] no edema RESPIRATORY: No dyspnea : neg MANAGER AGRICULTURE: neg The remainder of the review of [...] Isra Masters DO 03/15/2022 documented in this encounterMercy Health [facility] Hospital05-09-2022 Instructions* Patient Instructions* Urmila Alexander APRN.GRAPHIC SPECIALIST - 03/14/2022 10:43 AM EDT PATIENT PREOPERATIVE INSTRUCTIONS Mary Obrien MD has scheduled you for your procedure at this surgery center: [facility]: [phone] --[id number] [address]. Please check in on the1st floor at [...] Procedures: - YOU MUST HAVE A RESPONSIBLE POLICYHOLDER INFORMATION CLERK TAKE YOU HOME. A ASSISTANT PROFESSOR OF SOCIOLOGY OR INFANT CAREGIVER CANNOT BE MADE A RESPONSIBLE POLICYHOLDER INFORMATION CLERK. - We recommend that a responsible person [...] Advance Directive, please fax a copy to [phone] or email to for it to be [...] your chart that day. documented in this encounterMercy Health [facility]ana Hospital05-09-2022 History and physical note * Urmila Alexander APRN.CNP - 03/14/2022 10:30 AM EDT Images from the original note were not included. HISTORY AND PHYSICAL EXAMINATION SERVICE DATE: 03/14/2022 SERVICE TIME: 11:03 AM PRIMARY CARE PHYSICIAN: Eliceo Gómez DO REASON FOR VISIT: Mary Ludmila Ornelasgs is a 51 year old female [...] fevers. Neurological: No history of TIA's, stroke, CONDITIONER TUMBLER OPERATOR tumor, impaired sensorium, hemiplegia, paraplegia orquadraplegia. No [...] > 1 time per night or hematuria. MANAGER AGRICULTURE: Negative for abnormal vaginal bleeding, abnormal vaginal [...] TONSILLECTOMY HX 07/2021 revision VAGINAL HYSTERECTOMY 2014 [facility] 10/2015 for endometriosis, has remaining both [...] every 4 hours if needed Taking Yes ryxruatqlmt-teiytxrqi-kfamonuu (TRELEGY ELLIPTA) 100-62.5-25 mcg Inhale 1 Puff [...] (FLONASE) 50 mcg/actuation nasal spray Use 1 [place] in each nostril once daily. No medication [...] or any previous visit (from the past 00615 hour(s)). EKG: Assessment HTN (hypertension) Assessment: Managed [...] of difficult airway No abnormal airway history SST3TV0-FEYc Score: Age: <65 Sex: Female Hypertension history: [...] 10:30 AM PAGER/CONTACT #: documented in this encounterMercy Health [facility] Hospital04-25-2022 Miscellaneous Notes* Telephone Encounter - Isra [...] it legit. Please advise. documented in this [facility]04-15-2022 Instructions* Patient Instructions* Nelsy Chávez APRN.CNP - 02/18/2022 1:18 PM EDT Healing as expected from surgery. You have a pinpoint area of suture just under the vaginal epithelium surface that may need more time to fully heal. Please call the office if you would like to try vaginal estrogen cream or with any questions/concerns. documented in this [facility]04-15-2022 History of Present illness Narrative* Nelsy [...] no Pain: no Abnormal Vaginal Discharge: no MANAGER AGRICULTURE HISTORY: Last pap: cannot remember; Last mammogram: She has never had a mammogram LMP: No LMP recorded. Patient has had a hysterectomy.; Menopause n/a: Menstrual history: NA; Deliveries: I have confirmed and edited as necessary, the PFSH obtained by others. Nelsy Chávez APRN.GRAPHIC SPECIALIST Memorandum Statement Clerk offered: Patient declines. OBJECTIVE: There were no [...] if this helps. She is traveling to [place] to see her ailing father for two weeks and would like to wait for now to see if things resolve. She knows she can call the office if she changes her mind and would like to trial vaginal estrogen Nelsy Chávez APRN.KWESI documented in this encounterMercy Health [facility]04-08-2022 History of Present illness Narrative* Flaca [...] straining Skilled Intervention: Patient education as noted. Jacking Neuromuscular Re-Education Treatment Minutes: 15 Total Treatment Time Minutes (timed and untimed codes) : 15 Flaca Bartholomew PT documented in this encounterMercy Health [facility]04-05-2022 Nurse Note* Re Sierra MA - [...] Temperature: No Drains: No documented in this encounterMercy Health [facility] Hospital04-05-2022 History of Present illness Narrative* Mary Obrien MD - 02/08/2022 2:40 PM EDT COLORECTAL SURGERY February 08, 2022 Mary Leal Chief Complaint: follow up History of Present Illness: Maryjonathan Ornelasgs is a 51 year old female [...] (FLONASE) 50 mcg/actuation nasal spray Use 1 [place] in each nostril once daily. carBAMazepine XR [...] THE LUNGS every 4 hours if needed oshkegffsiq-jpugqxkdx-xqdbiuvk (TRELEGY ELLIPTA) 100-62.5-25 mcg Inhale 1 Puff [...] medical complications of surgery including DVT/PE, PNA, NM, stroke, and . The patient understands these risks and is in agreement with proceeding. Medical Decision Making: Data Reviewed: Tests & Documents Reviewed/ordered: Review of prior notes from myself, OR, Dr. Wang Review of prior operative reports I have discussed Mary Leal's treatment plan and/or results with the patient. Mary Obrien MD Colorectal Surgery documented in this encounterMercy Health [facility]04-05-2022 History of Present illness Narrative* Magali Mitchell APRN.GRAPHIC SPECIALIST - 02/08/2022 11:04 AM EDT Female Pelvic [...] you received about pain medications helpful? Yes Memorandum Statement Clerk offered:Patient declines OBJECTIVE: BP 113/76 Pulse 74 [...] 6 month Patient expressed understanding. Magali Mitchell APRN.GRAPHIC SPECIALIST documented in this encounterMercy Health [facility] Hospital03-29-2022 Miscellaneous Notes* Telephone Encounter - Steffi Ross LPN - 02/01/2022 11:08 AM EDT [facility] 06-10-21 Pharmacy and Rx request verified. Please file if appropriate. Thank you Steffi Ross LPN documented in this encounterMercy Health U[facility] Hospital03-28-2022 NoteHNO ID: [id number] Author: Newton Woodward, PT Service: ? Author [...] to Home;Specialty Service Patient transferring care to: [facility]- Flaca Bartholomew SUBJECTIVE: Patient Reason for Visit: [...] untimed codes) : 40 Newton Woodward PT, [facility]03-28-2022 History of Present illness Narrative* Newton Woodward, PT - 01/31/2022 10:42 AM EDT Episode Visit Count: 3 Therapist That Will Oversee The Plan Of Care: [place] Start of Care Date: 01/18/22 Onset Date: [...] to Home;Specialty Service Patient transferring care to: [facility]- Flaca Bartholomew SUBJECTIVE: Patient Reason for Visit: [...] Newton Woodward PT, DPT documented in this encounterMercy Health U[facility] Hospital03-21-2022 NoteHNO ID: [id number] Author: Newton Woodward PT Service: ? Author Type: Physical Therapist Type: Progress Notes Filed: 01/24/2022 1:23 PM Note Text: Episode Visit Count: 2 Therapist That Will Oversee The Plan Of Care: La then transfer to Flaac Bartholomew Start of Care Date: 01/18/22 Onset [...] untimed codes) : 45 Newton Woodward PT, [facility]03-15-2022 NoteHNO ID: [id number] Author: Jessi Isaacs, PT Service: ? Author [...] Planned: 8 Planned Treatment Interventions: Therapeutic exercise (69671);Neuromuscular re-education (20373);Manual therapy (53400);Therapeutic activities (94260);Self-senior living management (12717);Patient/Family/Caregiver Education PLAN FOR NEXT VISIT: PFM dynamics; biofeedback Patient demonstrates good understanding of plan of care and treatment. The above goals and plan of care were discussed and agreed upon by patient/family. Transfer of Care Due To: Closer to Home (patient to transfer in February 2022) Patient transferring care to: [facility] Flaca Bartholomew SUBJECTIVE: Mary Leal is a [...] function/quality of life. 50 (more content not included)...[facility] HospitalKiwoilmk71-71-3226 NoteHNO ID: [id number] Author: Moni Munguia RN Service: Care Management Author Type: Registered Nurse Type: Care Mgt Progress Note Filed: 12/27/2021 4:17 PM Note Text: CARE MANAGEMENT DISCHARGE NOTE SERVICE DATE: 12/27/2021 SERVICE TIME: 4:14 PM LOS: 3 days Admission Date: 12/24/2021 DISCHARGE ARRANGEMENT (list agency and phone number) Discharge Arrangement: Home with Home Health Provider Name: [address] CAREGIVER ASSESSMENT: HANDOFF COMMUNICATION: Handoff to: Primary Care Physician Primary Care Physician Name/Phone: Eliceo Gómez Jr [phone] TRANSPORTATION ARRANGEMENTS: Transportation Arrangements: N/A The Pt is accepted by [address] for new ostomy care. The SOC will be within 24 to 48 hrs. The pt will be contacted directly with the SOC. The Pt verbalized agreement with this dc plan. SIGNATURE: Moni Munguia RN PATIENT NAME: Mary Leal DATE: December 27, 2021 TIME: 4:14 PM PAGER/CONTACT #: [phone] [id number] NoteHNO ID: [id number] Author: Parish Celeste DO Service: Colorectal Author [...] - Pain and nausea control -> d/c MANAGER OPERATING - D/c entereg - Culturelle - Continue [...] 0659 12/27/21 0700 - 12/28/21 0659 Shift 3571-2850 0589-3401 1260-8546 24 Hour Total 9983-3902 2472-5979 1649-0496 24 Hour Total INTAKE PO 60 60 PO 60 60 IV 2100 2100 Volume (mL) (lactated ringers iv infusion) 2100 2100 Shift Total 2160 2160 OUTPUT Urine 5834 400 5371 2300 200 200 Void (ml) 300 1000 1300 200 200 Output ( Indwelling Urinary Catheter 12/24/21 Call 16 Fr) 1000 1000 Emesis 0 0 Emesis (ml) 0 0 Ostomy 250 125 375 Ileostomy 1 250 125 375 # of BMs Number of BMs 0 x 0 x Shift Total 0995 545 3415 2675 200 200 Weight (kg) 82.1 82.1 82.1 82.1 82.1 82.1 82.1 82.1 Recent Labs 12/26/21 0755 12/25/21 0606 WBC -- 5.96 HB -- 11.6 HCT -- 35.2* PLT -- 271 NA 139 141 K 4.0 4.0 CHLOR 102 104 CO2 28 28 CREAT 0.62* 0.72 BUN 10 12 GLUC 71 91 CA 8.5 8.5 Parish Celeste DO General Surgery, PGY-4 [phone] After 6 pm and on the weekends please page [phone] 12-26-2021 NoteHNO ID: [id number] Author: Jenifer Ayala MD Service: Colorectal Author Type: Fellow Type: Progress Notes Filed: 12/26/2021 12:13 PM Note Text: GENERAL SURGERY PROGRESS NOTE Name: Mary Leal 12/26/2021 12:11 PM Interval Events: Patient doing well post-operatively. No acute events overnight. Tolerating CLD diet without nausea or vomiting. Stoma productive of bilious fluid + gas Pain well controlled with MANAGER OPERATING + oral pain medication (feels most relief from po oxycodone). Assessment and Plan: 51 year old female with pelvic organ prolapse and chronic constipation, likely slow transit but with possible component of pelvic outlet obstruction and with discordant testing. Patient underwent laparoscopic protopexy on 12/24/21 surgery was uneventful. Post-operative course has been uncompliacted. Pain control- Tylenol Gabapentin Toradol MANAGER OPERATING: Dilaudid, tegretol, klonopin, requip, trintellix, oxycodone Cardiac- [...] any questions or concerns page [facility] [id number] Objective Physical exam: BP 117/66 Pulse 77 [...] Date 12/25/21 07 - 12/26/21 0659 12/26/21 0700 - 12/27/21 0659 Shift 5403-5069 3628-2020 8985-4624 24 Hour Total 7982-9569 6659-7138 8654-2980 24 Hour Total INTAKE PO 60 60 PO 60 60 IV 213 668 881 Volume (mL) (lactated ringers iv infusion) 213 668 881 Shift Total 273 668 941 OUTPUT Urine 495 433 3706 1000 Void (ml) 0 0 Output ( Indwelling Urinary Catheter 12/24/21 Call 16 Fr) 518 304 4029 1000 Emesis 0 0 Emesis (ml) 0 0 Ostomy 100 100 Ileostomy 1 100 100 # of BMs Number of BMs 0 x 0 x Shift Total 855 824 2893 1000 Weight (kg) 82.1 82.1 82.1 82.1 [...] Diagnosis Date Noted - Pelvic floor dysfunction [facility]21[facility] NoteHNO ID: [id number] Author: Sonido Owen MD Service: Colorectal Author [...] been uncompliacted. Pain control- Tylenol Gabapentin Toradol MANAGER OPERATING: Dilaudid, tegretol, klonopin, requip, trintellix Cardiac- Vitals: [...] Owen MD General Surgery PGY 2 Pg [phone] For any questions or concerns page [facility] Blue [id number] Objective Physical exam: BP 111/61 Pulse 86 [...] 0659 12/25/21 07 - 12/26/21 0659 Shift 8378-0581 6408-9011 4388-4804 24 Hour Total 2225-7628 4721-8663 3841-2407 24 Hour Total INTAKE PO 240 120 360 PO 240 120 360 IV 3100 3100 Volume (mL) (lactated ringers iv infusion) 1800 1800 Volume (mL) (lactated ringers iv infusion) 1300 1300 Shift Total 3100 710 216 7103 OUTPUT Urine 200 715 101 8060 OR Urine Output 200 200 Output ( Indwelling Urinary Catheter 12/24/21 Call 16 Fr) 300 500 800 Emesis 0 0 0 Emesis (ml) 0 0 0 Ostomy 0 0 0 Ileostomy 1 0 0 0 # of BMs Number of BMs 0 x 0 x 0 x Blood 50 50 Estimated Blood loss 50 50 Shift Total 250 130 819 9657 Weight (kg) 82.1 82.1 82.1 82.1 82.1 [...] Diagnosis Date Noted - Pelvic floor dysfunction 12/24/2021[facility] NoteHNO ID: [id number] Author: Carmen Stanley APRN.CRNA Service: Anesthesiology Author Type: Nurse Sushi Chef Type: Anesthesia Procedure Notes Filed: 12/24/2021 8:44 [...] December 24, 2021 TIME: 8:44 AM CSN: [id number] NoteHNO ID: [id number] Author: Carmen Arpidone, PUBLISHING SPECIALIST.OVERHEAD LINE WORKER Service: Anesthesiology Author Type: Nurse Sushi Chef Type: Anesthesia Procedure Notes Filed: 12/24/2021 8:44 AM Note Text: ANESTHESIOLOGY PROCEDURE NOTE Airway General Information Procedure Start Time/Medication Administration: 12/24/2021 8:22 AM Patient location during procedure: OR 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, care hospice team lead and patient Staffing Anesthesiologist: Chayito Ojeda MD OVERHEAD LINE WORKER: Carmen Stanley APRN.OVERHEAD LINE WORKER Performed by: OVERHEAD LINE WORKER and anesthesiologist Indications and Patient Condition Preoxygenated: [...] 1 Airway not difficult SIGNATURE: Carmen Stanley APRN.OVERHEAD LINE WORKER PATIENT NAME: Mary Leal DATE: December 24, 2021 TIME: 8:43 AM CSN: [id number] Evaluation note* Encounter Date Diagnosis Assessment Notes [...] with patient in regards to patients condition. 15 Dec, 2021 Other chronic pain (ICD-10 - G89.29) Oct, Other Above note writ ten by Lupillo Amezquita MA, Chiller Tender. Edited and approved by Dr. Beto Harris MD. [facility] Other 11-01-2021 Evaluation note* Encounter Date Diagnosis [...] note writ ten by Lupillo Amezquita MA, Chiller Tender. Edited and approved by Dr. Beto Harris MD. [facility] Other 10-14-2021 Evaluation note* Encounter Date Diagnosis [...] no improvement in 2 to 3 days. [facility] Other 10-08-2021 Evaluation note* Encounter Date Diagnosis [...] Patient care instructions given in writting by [facility] document [facility] Other 10-07-2021 Evaluation note* Encounter Date Diagnosis [...] Aug, Other chronic pain (ICD-10 - G89.29) [facility] Other 09-22-2021 Evaluation note* Encounter Date Diagnosis [...] Jul, Other chronic pain (ICD-10 - G89.29) [facility] Other 03-01-2021 Note [id number]:127[facility] 01-04-2021 NoteCystoscopy with Botox injection ? [...] if you have a fever over 100 degrees.[facility] 11-11-2020 NoteChief Complaint Pt is here [...] Dawna Marmolejo MD [address] [place] [address]- [phone] Additional Instructions: F/u in 1yr. Patient Education Urinary Frequency I, Christy Gill , personally scribed for Dr. Marmolejo on 11/11/2020 12:07:15. Electronically signedby scribe Christy Gill on 11/11/2020 12:07:15. Documentation recorded by [...] deficit disorder Bipolar disorder (more content not included)...[facility] Comment on above:Result Comment: Electronically Signed By: Dawna Marmolejo MD\.br\Date and Time Signed: 11/11/2111:16 EST\.br\Electronically Co-Signed By: Christy Gill MA\.br\Date and Time Co-Signed: 11/11/20 12:07 [id number]:127[facility] Narrative - Reported* MARY LEAL is being seen for an initial evaluation of. * 52-year-old female seen in cardiology consultation at the request of her primary care physician forelevated troponin while in [facility] this past spring that was associated with a GI bleed/gastritis. * Patient recently underwent large bowel resection details of which are unknown and I suspect possibly consistent with ulcerative colitis but again unknown pathology. She had a diverting colostomy with3 anastomosis performed. While in [place] with her GI bleed and primarily gastric [...] * I believe minor troponin elevation in [place] was simply at small type II non- NM troponin elevationrelated to inflammation and gastritis and [...] colectomy. She can follow-up as needed otherwise. [facility] 250 DO Work Phone: Evaluation note* Diagnosis Pelvic floor dysfunction- Primary Pelvic muscle wasting Lack of coordination Follow-up examination after colorectal surgery Follow-up examination, following other surgery [facility] Diagnosis Gastroesophageal reflux disease, unspecified whether esophagitis present [facility] Diagnosis Follow-up examination after colorectal surgery- Primary Follow-up examination, following other surgery [facility] Diagnosis Post-operative state- Primary Other postprocedural status Yeast infection of the skin Candidiasis of skin and nails [facility] Diagnosis Pelvic floor dysfunction- Primary Pelvic muscle wasting Lack of coordination Follow-up examination after colorectal surgery Follow-up examination, following other surgery [facility] Diagnosis Postoperative state- Primary Other postprocedural status Attention to ileostomy (HCC) Attention to ileostomy [facility] Diagnosis Preop examination- Primary Preoperative examination, unspecified Attention to ileostomy (HCC) Attention to ileostomy Primary hypertension Unspecified essential hypertension Gastroparesis Gastroesophageal reflux disease, unspecified whether esophagitis present Mild persistent asthma without complication Unspecified asthma Bipolar 1 disorder (HCC) Bipolar I disorder, most recent episode (or current) unspecified Obesity (BMI 30.0-34.9) Obesity, unspecified Attention to ileostomy ([facility]) Attention to ileostomy documented in this encounter [facility] note* Diagnosis Gastroesophageal reflux disease, unspecified whether esophagitis present Chronic idiopathic constipation Unspecified constipation Attention to ileostomy ([facility]) Attention to ileostomy documented in this encounter [facility] note* Diagnosis Follow-up examination after colorectal surgery- Primary Follow-up examination, following other surgery Pelvic floor dysfunction Pelvic muscle wasting documented in this encounter [facility] noteNo Rate SolutionsNoAnpro21 Other evaluation noteNoAnpro21 Other evaluation note* Diagnosis Follow-up examination after colorectal surgery- Primary Follow-up examination, following other surgery Periumbilical abdominal pain Abdominal pain, periumbilic Outlet dysfunction constipation Colonic inertia Other functional disorders of intestine documented in this encounter [facility] noteNo assessment information [facility] Work Phone: Evaluation note* Diagnosis Gas bloat syndrome- Primary Chronic idiopathic constipation Unspecified constipation Gastroparesis documented in this encounter [facility] note* Diagnosis Gastroesophageal reflux disease, unspecified whether esophagitis present documented in this encounter [facility] note* Diagnosis Gastroparesis- Primary documented in this encounter [facility] note* Diagnosis CHUCKIE (obstructive sleep apnea)- Primary Obstructive sleep apnea (adult) (pediatric) documented in this encounter [facility] note* Diagnosis Pre-op exam- Primary Preoperative examination, unspecified Primary hypertension Unspecified essential hypertension Mild persistent asthma without complication Unspecified asthma Gastroparesis CHUCKIE (obstructive sleep apnea) Obstructive sleep apnea (adult) (pediatric) documented in this encounter [facility] note* Diagnosis CHUCKIE (obstructive sleep apnea)- Primary Obstructive sleep apnea (adult) (pediatric) documented in this encounter [facility] note* Diagnosis Chronic idiopathic constipation- Primary Unspecified constipation Nausea Nausea alone documented in this encounter [facility] note* Diagnosis Gastroesophageal reflux disease with esophagitis without hemorrhage- Primary [facility] Diagnosis Colonic inertia- Primary Other functional disorders of intestine Pelvic floor dysfunction Pelvic muscle wasting Nausea Nausea alone Gastroparesis documented in this encounter [facility] note* Diagnosis Pylorospasm- Primary Functional dyspepsia Dyspepsia and other specified disorders of function of stomach Gastroesophageal reflux disease with esophagitis without hemorrhage documented in this encounter [facility] note* Diagnosis Gastroesophageal reflux disease, unspecified whether esophagitis present documented in this encounter [facility] note* Diagnosis CHUCKIE (obstructive sleep apnea)- Primary Obstructive sleep apnea (adult) (pediatric) documented in this encounter [facility] note* Diagnosis Pylorospasm- Primary Functional dyspepsia Dyspepsia and other specified disorders of function of stomach Gastroesophageal reflux disease with esophagitis without hemorrhage documented in this encounter [facility] note* Diagnosis Gastroparesis- Primary documented in this encounter [facility] note* Diagnosis Preop examination- Primary Preoperative examination, unspecified Nausea Nausea alone CHUCKIE (obstructive sleep apnea) Obstructive sleep apnea (adult) (pediatric) Mild persistent asthma without complication Unspecified asthma Gastroesophageal reflux disease, unspecified whether esophagitis present Gastroparesis [facility]* Diagnosis 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 Personal history of other diseases of digestive system documented in this encounter [facility] note* Diagnosis Gastroesophageal reflux disease, unspecified whether esophagitis present documented in this encounter [facility] note* Diagnosis Incomplete bladder emptying- Primary Constipation, unspecified constipation type Urinary urgency Urgency of urination Urinary frequency Nocturia documented in this encounter [facility] note* Diagnosis Upper abdominal pain- Primary Abdominal pain, other specified site [facility] Diagnosis Burning with urination- Primary Dysuria documented in this encounter [facility] note* Diagnosis Ashley vaginitis Candidiasis of vulva and vagina documented in this encounter [facility] note* Diagnosis CHUCKIE (obstructive sleep apnea)- Primary Obstructive sleep apnea (adult) (pediatric) Pre-op testing- Primary Unspecified pre-operative examination CHUCKIE (obstructive sleep apnea) Obstructive sleep apnea (adult) (pediatric) [facility] Diagnosis CHUCKIE (obstructive sleep apnea)- Primary Obstructive sleep apnea (adult) (pediatric) [facility] Pre-op examination- Primary Preoperative examination, unspecified Obesity (BMI 30.0-34.9) Obesity, unspecified Mild persistent asthma without complication Unspecified asthma CHUCKIE (obstructive sleep apnea) Obstructive sleep apnea (adult) (pediatric) Primary hypertension Unspecified essential hypertension Gastroparesis Gastroesophageal reflux disease, unspecified whether esophagitis present Urinary urgency Urgency of urination Urinary frequency OAB (overactive bladder) Hypertonicity of bladder Urinary incontinence, urge Urge incontinence [facility]* Diagnosis Educational circumstances- Primary Educational circumstance Urinary urgency Urgency of urination Urinary frequency OAB (overactive bladder) Hypertonicity of bladder Urinary incontinence, urge Urge incontinence [facility]* Diagnosis Post-operative state- Primary Other postprocedural status [facility]* Diagnosis Procedure and treatment not carried out for other reasons- Primary documented in this encounter [facility] general Narrative - Reported* Type Description [...] see above list Hospitalization History respiratory 02/2020 [facility] [employer] Other History [facility] Other [facility] general Narrative - Reported* Type Description Date [...] see above list Hospitalization History respiratory 02/2020 [facility] Other InstructionsNot on filedocumented in this encounter [facility] SystemInstructionsNot on filedocumented in this encounter [facility] SystemReason for referral (narrative)* Outpatient Procedure (Routine) - Pending Review Specialty Diagnoses / Procedures Referred By Gustavo t Referred To Contact [facility] Diagnoses Gastroparesis Procedures CAPSULE ENDOSCOPY SMART Isra Masters DO [facility] [address] [place] [id number] [place] [phone] Referral ID Status Reason Start Date Expiration Date Visits Requested Visits Authorized [id number] Pending Review Auto-Generat ed Referral 10/11/2022 10/11/2023 1 1 [facility] Outpatient Procedure (Routine) - Pending Review Specialty Diagnoses / Procedures Referred By Contac t Referred To Contact [facility] Diagnoses Chronic idiopathic constipation Procedures SIGMOIDOSCOPY SIGMOIDOSCOPY FLX DX W/COLLJ SPEC BR/WA IF PFRMD Isra Masters DO [facility] [address] [place], [place] [id number] [place] [phone] Referral ID Status Reason Start Date Expiration Date Visits Requested Visits Authorized [id number] Pending Review Auto-Generat ed Referral 11/30/2022 11/30/2023 1 1 [facility] Outpatient Procedure (Routine) - Pending Review Specialty Diagnoses / Procedures Referred By Contac t Referred To Contact [facility] Diagnoses Gastroparesis Procedures EGD - THERAPEUTIC, EUS, OR TUBE INTERVENTIONS ESOPHAGOGASTRODUODENOSC OPY TRANSORAL DIAGNOSTIC STOMACH SURGERY PROCEDURE UNLISTED Winston Hannah DO [place] [phone] [facility] [address] [place] [address] Referral ID Status Reason Start Date Expiration Date Visits Requested Visits Authorized [id number] Pending Review Auto-Generat ed Referral 01/11/2023 01/12/2024 1 1 [facility] for referral (narrative)* Outpatient Procedure (Routine) - Pending Review Specialty Diagnoses / Procedures Referred By Gustavo salazar Referred To Contact [facility] Diagnoses Incomplete bladder emptying Urinary urgency Urinary frequency Nocturia Procedures URODYNAMICS WHI COMPLX CYSTOMETRO W/VOID PRESS&URETHRAL PROFILE Nelsy Chávez APRN.GRAPHIC SPECIALIST [address] [place] [address] [facility] [address] [place] [address] Referral ID Status Reason Start Date Expiration Date Visits Requested Visits Authorized [id number] Pending Review Auto-Generat ed Referral 07/31/2023 07/30/2024 1 1 [facility] for referral (narrative)* Consultation (Routine) - Open Specialty Diagnoses / Procedures Referred By Gustavo salazar Referred To Contact [facility] Diagnoses Upper abdominal pain Lev Ritter APRN GRAPHIC SPECIALIST [address] [place] [address] [facility] [address] [place] [address] Referral ID Status Reason Start Date Expiration Date Visits Re quested Visits Authorized [id number] Open 08/12/2023 09/12/2024 1 1 [facility] Home TaxiReason for visit NarrativeDISCUSS OTHER OPTIONS PRIOR TO PROCEDURENoAnpro21 Other Reason for visit NarrativeRECHECK CERVICAL PAIN DISCUSS PROCEDURENort [employer] Other Reason for visit Narrative* Outpatient Procedure (Routine) - Closed Specialty Diagnoses / Procedures Referred By Gustavo salazar Referred To Contact [facility] Diagnoses Gastroparesis Procedures GI TRANSIT & PRES RAVINDER WIRELESS CAPSULE W/INTERP Isra Masters DO [address] [place] [address] [facility] [address] [place] [address] Referral ID Status Reason Start Date Expiration Date Visits Re quested Visits Authorized [id number] Closed 11/08/2022 11/05/2023 1 1 [facility] Summary Purpose Family History Unknown Family Member Name Dates Details Adopted: Father(V68.89, Z02. 82) Status:Active Family history of cardiac pa cemaker: Father(V17.49, Z82.49) Status:Active Unknown Family Member Name Dates Details Adopted: Father(V68.89, Z02. 82) Status:Active Family history of cardiac pa cemaker: Father(V17.49, Z82.49) Status:Active Unknown Family Member Name Dates Details Adopted: Father(V68.89, Z02. 82) Status:Active Family history of cardiac pa cemaker: Father(V17.49, Z82.49) Status:Active Advance Directives Documents on File Type Date Recorded Patient Accounting/Finance Tutor Expl anation Advance Directive(s) 10/13/2021 4:09 PM Advance Directive(s) 10/14/2020 8:14 AM Documents on File Type Date Recorded Patient Accounting/Finance Tutor Expl anation Advance Directive(s) 10/13/2021 4:09 PM Advance Directive(s) 10/14/2020 8:14 AM Documents on File Type Date Recorded Patient Accounting/Finance Tutor Expl anation Advance Directive(s) 03/21/2022 1:42 PM [...] unspecified whether esophagitis present Isra Masters DO [address] [place] [address] Referral ID Status Reason Start Date Expiration Date Visits Re quested Visits Authorized [id number] Closed 1 1 Referral ID Status Reason Start Date Expiration Date V isits Requested Visits Authorized [id number] Pending Review 1 1 Specialty Diagnoses / Procedures Referred By Contac t Referred To Contact CT IMAGING Diagnoses Periumbilical abdominal pain Procedures CT ABD/PEL W IVCON CT ABD & [place]ELVIS [place] [address] [place] [address] Ct Imaging Referral ID Status Reason Start Date Expiration Date Visits Requested Visits Authorized [id number] Pending Review Auto-Generat ed Referral 08/02/2022 08/25/2023 1 1 Reason BILATERAL SHOULDER P AIN Diagnosis 1 Shoulder pain (M25.5 19) Referral Organization [facility] Referring Provider First Name Beto Referring Provider Last Name Steven Referring Provider Specialty Pain Medici ne Referred Organization [facility] Referred Provider Beto Cartagena Referred Address [address] [place], [place],[address] Referred Provider Specialty Orthopedic S urgery Referral Priority Routine Referral Appointment Date 2022-10-10 General Notes Kim Manley 10:01:46 AM >patient already scheduled with [facility] 10/10/22 at 1:30pm. Sending p2p at this time Referral ID Status Reason Start Date Expiration Date Visits Re quested Visits Authorized [id number] Closed 1 1 Chief Complaint and Reason [...] weakness, dizziness, diaphoresis with recent work-up that [facility] emergency room. Reportedly her troponins are [...] of which are currently being investigated at [facility] (now her fourth GI specialist). * Last year while in [place] she had similar issues with elevated troponins in the ED and underwent heart catheterization that did not reveal any specific significant disease, details of the discharge summary are reviewed * She underwent recent stress perfusion imaging at [facility], the report is reviewed, she hasno [...] disease, will investigate the troponin rise at [facility] however I believe this is likely a non- NM troponin elevation, likely associated withunderlying inflammatory bowel disease. We will follow-up on a as needed basis unless further objective data come to light * Patient is a 53-year-old female who returns at the request of her primary care physician with episodic chest discomfort associated weakness, dizziness, diaphoresis with recent work-up that [facility] emergency room. Reportedly her troponins are [...] of which are currently being investigated at [facility] (now her fourth GI specialist). * Last year while in [place] she had similar issues with elevated troponins in the ED and underwent heart catheterization that did not reveal any specific significant disease, details of the discharge summary are reviewed * She underwent recent stress perfusion imaging at [facility], the report is reviewed, she hasno [...] disease, will investigate the troponin rise at [facility] however I believe this is likely a non- NM troponin elevation, likely associated withunderlying inflammatory bowel disease. We will follow-up on a as needed basis unless further objective data come to light Additional Source Comments INFORMATION SOURCE (unrecogn ized section and content) DATE CREATED AUTHOR 07/08/2021 [facility] DATE CREATED AUTHOR AUTHOR'S ORGANIZ ATION 11/18/2021 [facility] DATE CREATED AUTHOR AUTHOR'S ORGANIZ ATION 02/01/2022 [facility] DATE CREATED AUTHOR AUTHOR'S ORGANIZ ATION 04/05/2022 [facility] DATE CREATED AUTHOR AUTHOR'S ORGANIZ ATION 09/29/2022 [facility] DATE CREATED AUTHOR AUTHOR'S ORGANIZ ATION 12/09/2022 [facility] DATE CREATED AUTHOR AUTHOR'S ORGANIZ ATION 04/16/2023 [facility] DATE CREATED AUTHOR AUTHOR'S ORGANIZ ATION 06/14/2023 [employer] DATE CREATED AUTHOR AUTHOR'S ORGANIZ ATION 08/14/2023 [facility] DATE CREATED AUTHOR AUTHOR'S ORGANIZ ATION 09/02/2023 [facility] DATE CREATED AUTHOR AUTHOR'S ORGANIZ ATION 10/27/2023 [facility] DATE CREATED AUTHOR AUTHOR'S ORGANIZ ATION 12/15/2023 [facility] DATE CREATED AUTHOR AUTHOR'S ORGANIZ ATION 01/11/2024 [facility] DATE CREATED AUTHOR AUTHOR'S ORGANIZ ATION 01/23/2024 [facility] DATE CREATED AUTHOR AUTHOR'S ORGANIZ ATION 01/24/2024 [facility] DATE CREATED AUTHOR AUTHOR'S ORGANIZ ATION 01/26/2024 [facility] DATE CREATED AUTHOR AUTHOR'S ORGANIZ ATION 02/08/2024 [facility] DATE CREATED AUTHOR AUTHOR'S ORGANIZ ATION 02/11/[address] [facility] Source Comments (unrecognize d section and content) In the event this informatio n is protected by the Federal Confidentiality of Alcohol and Drug Abuse Patient Records regulations: The Federal rules restrict any use of the information to criminally investigate or prosecute any alcohol or drug abuse patient.[facility] the event this information is protected by the Federal Confidentiality of Alcohol and Drug Abuse Patient Records regulations: The Federal rules restrict any use of the information to criminally investigate or prosecute any alcohol or drug abuse patient.[facility] the event this information is protected by the Federal Confidentiality of Alcohol and Drug Abuse Patient Records regulations: The Federal rules restrict any use of the information to criminally investigate or prosecute any alcohol or drug abuse patient.[facility]In the event this information is protected by the Federal Confidentiality of Alcohol and Drug Abuse Patient Records regulations: The Federal rules restrict any use of the information to criminally investigate or prosecute any alcohol or drug abuse patient.[facility]In the event this information is protected by the Federal Confidentiality of Alcohol and Drug Abuse Patient Records regulations: The Federal rules restrict any use of the information to criminally investigate or prosecute any alcohol or drug abuse patient.[facility] HospitalIn the event this information is protected by the Federal Confidentiality of Alcohol and Drug Abuse Patient Records regulations: The Federal rules restrict any use of the information to criminally investigate or prosecute any alcohol or drug abuse patient.[facility] HospitalIn the event this information is protected by the Federal Confidentiality of Alcohol and Drug Abuse Patient Records regulations: The Federal rules restrict any use of the information to criminally investigate or prosecute any alcohol or drug abuse patient.[facility] HospitalIn the event this information is protected by the Federal Confidentiality of Alcohol and Drug Abuse Patient Records regulations: The Federal rules restrict any use of the information to criminally investigate or prosecute any alcohol or drug abuse patient.[facility] HospitalIn the event this information is protected by the Federal Confidentiality of Alcohol and Drug Abuse Patient Records regulations: The Federal rules restrict any use of the information to criminally investigate or prosecute any alcohol or drug abuse patient.[facility] HospitalIn the event this information is protected by the Federal Confidentiality of Alcohol and Drug Abuse Patient Records regulations: The Federal rules restrict any use of the information to criminally investigate or prosecute any alcohol or drug abuse patient.[facility] HospitalIn the event this information is protected by the Federal Confidentiality of Alcohol and Drug Abuse Patient Records regulations: The Federal rules restrict any use of the information to criminally investigate or prosecute any alcohol or drug abuse patient.[facility] HospitalIn the event this information is protected by the Federal Confidentiality of Alcohol and Drug Abuse Patient Records regulations: The Federal rules restrict any use of the information to criminally investigate or prosecute any alcohol or drug abuse patient.[facility] HospitalIn the event this information is protected by the Federal Confidentiality of Alcohol and Drug Abuse Patient Records regulations: The Federal rules restrict any use of the information to criminally investigate or prosecute any alcohol or drug abuse patient.[facility] HospitalIn the event this information is protected by the Federal Confidentiality of Alcohol and Drug Abuse Patient Records regulations: The Federal rules restrict any use of the information to criminally investigate or prosecute any alcohol or drug abuse patient.[facility] HospitalIn the event this information is protected by the Federal Confidentiality of Alcohol and Drug Abuse Patient Records regulations: The Federal rules restrict any use of the information to criminally investigate or prosecute any alcohol or drug abuse patient.[facility] HospitalIn the event this information is protected by the Federal Confidentiality of Alcohol and Drug Abuse Patient Records regulations: The Federal rules restrict any use of the information to criminally investigate or prosecute any alcohol or drug abuse patient.[facility] HospitalIn the event this information is protected by the Federal Confidentiality of Alcohol and Drug Abuse Patient Records regulations: The Federal rules restrict any use of the information to criminally investigate or prosecute any alcohol or drug abuse patient.[facility] HospitalIn the event this information is protected by the Federal Confidentiality of Alcohol and Drug Abuse Patient Records regulations: The Federal rules restrict any use of the information to criminally investigate or prosecute any alcohol or drug abuse patient.[facility] HospitalIn the event this information is protected by the Federal Confidentiality of Alcohol and Drug Abuse Patient Records regulations: The Federal rules restrict any use of the information to criminally investigate or prosecute any alcohol or drug abuse patient.[facility] HospitalIn the event this information is protected by the Federal Confidentiality of Alcohol and Drug Abuse Patient Records regulations: The Federal rules restrict any use of the information to criminally investigate or prosecute any alcohol or drug abuse patient.[facility] HospitalIn the event this information is protected by the Federal Confidentiality of Alcohol and Drug Abuse Patient Records regulations: The Federal rules restrict any use of the information to criminally investigate or prosecute any alcohol or drug abuse patient.[facility] HospitalIn the event this information is protected by the Federal Confidentiality of Alcohol and Drug Abuse Patient Records regulations: The Federal rules restrict any use of the information to criminally investigate or prosecute any alcohol or drug abuse patient.[facility] HospitalIn the event this information is protected by the Federal Confidentiality of Alcohol and Drug Abuse Patient Records regulations: The Federal rules restrict any use of the information to criminally investigate or prosecute any alcohol or drug abuse patient.[facility] HospitalIn the event this information is protected by the Federal Confidentiality of Alcohol and Drug Abuse Patient Records regulations: The Federal rules restrict any use of the information to criminally investigate or prosecute any alcohol or drug abuse patient.[facility] HospitalIn the event this information is protected by the Federal Confidentiality of Alcohol and Drug Abuse Patient Records regulations: The Federal rules restrict any use of the information to criminally investigate or prosecute any alcohol or drug abuse patient.[facility] HospitalIn the event this information is protected by the Federal Confidentiality of Alcohol and Drug Abuse Patient Records regulations: The Federal rules restrict any use of the information to criminally investigate or prosecute any alcohol or drug abuse patient.[facility] HospitalIn the event this information is protected by the Federal Confidentiality of Alcohol and Drug Abuse Patient Records regulations: The Federal rules restrict any use of the information to criminally investigate or prosecute any alcohol or drug abuse patient.[facility] HospitalIn the event this information is protected by the Federal Confidentiality of Alcohol and Drug Abuse Patient Records regulations: The Federal rules restrict any use of the information to criminally investigate or prosecute any alcohol or drug abuse patient.[facility] HospitalIn the event this information is protected by the Federal Confidentiality of Alcohol and Drug Abuse Patient Records regulations: The Federal rules restrict any use of the information to criminally investigate or prosecute any alcohol or drug abuse patient.[facility] HospitalIn the event this information is protected by the Federal Confidentiality of Alcohol and Drug Abuse Patient Records regulations: The Federal rules restrict any use of the information to criminally investigate or prosecute any alcohol or drug abuse patient.[facility] HospitalIn the event this information is protected by the Federal Confidentiality of Alcohol and Drug Abuse Patient Records regulations: The Federal rules restrict any use of the information to criminally investigate or prosecute any alcohol or drug abuse patient.[facility] HospitalIn the event this information is protected by the Federal Confidentiality of Alcohol and Drug Abuse Patient Records regulations: The Federal rules restrict any use of the information to criminally investigate or prosecute any alcohol or drug abuse patient.[facility] HospitalIn the event this information is protected by the Federal Confidentiality of Alcohol and Drug Abuse Patient Records regulations: The Federal rules restrict any use of the information to criminally investigate or prosecute any alcohol or drug abuse patient.[facility] HospitalIn the event this information is protected by the Federal Confidentiality of Alcohol and Drug Abuse Patient Records regulations: The Federal rules restrict any use of the information to criminally investigate or prosecute any alcohol or drug abuse patient.[facility] HospitalIn the event this information is protected by the Federal Confidentiality of Alcohol and Drug Abuse Patient Records regulations: The Federal rules restrict any use of the information to criminally investigate or prosecute any alcohol or drug abuse patient.[facility] HospitalIn the event this information is protected by the Federal Confidentiality of Alcohol and Drug Abuse Patient Records regulations: The Federal rules restrict any use of the information to criminally investigate or prosecute any alcohol or drug abuse patient.[facility] HospitalIn the event this information is protected by the Federal Confidentiality of Alcohol and Drug Abuse Patient Records regulations: The Federal rules restrict any use of the information to criminally investigate or prosecute any alcohol or drug abuse patient.[facility] HospitalIn the event this information is protected by the Federal Confidentiality of Alcohol and Drug Abuse Patient Records regulations: The Federal rules restrict any use of the information to criminally investigate or prosecute any alcohol or drug abuse patient.[facility] HospitalIn the event this information is protected by the Federal Confidentiality of Alcohol and Drug Abuse Patient Records regulations: The Federal rules restrict any use of the information to criminally investigate or prosecute any alcohol or drug abuse patient.[facility] HospitalIn the event this information is protected by the Federal Confidentiality of Alcohol and Drug Abuse Patient Records regulations: The Federal rules restrict any use of the information to criminally investigate or prosecute any alcohol or drug abuse patient.[facility] HospitalIn the event this information is protected by the Federal Confidentiality of Alcohol and Drug Abuse Patient Records regulations: The Federal rules restrict any use of the information to criminally investigate or prosecute any alcohol or drug abuse patient.[facility] HospitalIn the event this information is protected by the Federal Confidentiality of Alcohol and Drug Abuse Patient Records regulations: The Federal rules restrict any use of the information to criminally investigate or prosecute any alcohol or drug abuse patient.[facility] HospitalIn the event this information is protected by the Federal Confidentiality of Alcohol and Drug Abuse Patient Records regulations: The Federal rules restrict any use of the information to criminally investigate or prosecute any alcohol or drug abuse patient.[facility] the event this information is protected by the Federal Confidentiality of Alcohol and Drug Abuse Patient Records regulations: The Federal rules restrict any use of the information to criminally investigate or prosecute any alcohol or drug abuse patient.[facility] HospitalIn the event this information is protected by the Federal Confidentiality of Alcohol and Drug Abuse Patient Records regulations: The Federal rules restrict any use of the information to criminally investigate or prosecute any alcohol or drug abuse patient.[facility] HospitalIn the event this information is protected [...] or prosecute any alcohol or drug abuse patient.[facility] HospitalIn the event this information is protected by the Federal Confidentiality of Alcohol and Drug Abuse Patient Records regulations: The Federal rules restrict any use of the information to criminally investigate or prosecute any alcohol or drug abuse patient.[facility] HospitalIn the event this information is protected by the Federal Confidentiality of Alcohol and Drug Abuse Patient Records regulations: The Federal rules restrict any use of the information to criminally investigate or prosecute any alcohol or drug abuse patient.[facility] HospitalIn the event this information is protected by the Federal Confidentiality of Alcohol and Drug Abuse Patient Records regulations: The Federal rules restrict any use of the information to criminally investigate or prosecute any alcohol or drug abuse patient.[facility] HospitalIn the event this information is protected by the Federal Confidentiality of Alcohol and Drug Abuse Patient Records regulations: The Federal rules restrict any use of the information to criminally investigate or prosecute any alcohol or drug abuse patient.[facility] HospitalIn the event this information is protected by the Federal Confidentiality of Alcohol and Drug Abuse Patient Records regulations: The Federal rules restrict any use of the information to criminally investigate or prosecute any alcohol or drug abuse patient.[facility] HospitalIn the event this information is protected by the Federal Confidentiality of Alcohol and Drug Abuse Patient Records regulations: The Federal rules restrict any use of the information to criminally investigate or prosecute any alcohol or drug abuse patient.[facility] HospitalIn the event this information is protected by the Federal Confidentiality of Alcohol and Drug Abuse Patient Records regulations: The Federal rules restrict any use of the information to criminally investigate or prosecute any alcohol or drug abuse patient.[facility] HospitalIn the event this information is protected by the Federal Confidentiality of Alcohol and Drug Abuse Patient Records regulations: The Federal rules restrict any use of the information to criminally investigate or prosecute any alcohol or drug abuse patient.[facility] HospitalIn the event this information is protected by the Federal Confidentiality of Alcohol and Drug Abuse Patient Records regulations: The Federal rules restrict any use of the information to criminally investigate or prosecute any alcohol or drug abuse patient.[facility] HospitalIn the event this information is protected by the Federal Confidentiality of Alcohol and Drug Abuse Patient Records regulations: The Federal rules restrict any use of the information to criminally investigate or prosecute any alcohol or drug abuse patient.[facility] HospitalIn the event this information is protected by the Federal Confidentiality of Alcohol and Drug Abuse Patient Records regulations: The Federal rules restrict any use of the information to criminally investigate or prosecute any alcohol or drug abuse patient.[facility] HospitalIn the event this information is protected by the Federal Confidentiality of Alcohol and Drug Abuse Patient Records regulations: The Federal rules restrict any use of the information to criminally investigate or prosecute any alcohol or drug abuse patient.[facility] HospitalIn the event this information is protected by the Federal Confidentiality of Alcohol and Drug Abuse Patient Records regulations: The Federal rules restrict any use of the information to criminally investigate or prosecute any alcohol or drug abuse patient.[facility] HospitalIn the event this information is protected by the Federal Confidentiality of Alcohol and Drug Abuse Patient Records regulations: The Federal rules restrict any use of the information to criminally investigate or prosecute any alcohol or drug abuse patient.[facility] HospitalIn the event this information is protected by the Federal Confidentiality of Alcohol and Drug Abuse Patient Records regulations: The Federal rules restrict any use of the information to criminally investigate or prosecute any alcohol or drug abuse patient.[facility] HospitalIn the event this information is protected by the Federal Confidentiality of Alcohol and Drug Abuse Patient Records regulations: The Federal rules restrict any use of the information to criminally investigate or prosecute any alcohol or drug abuse patient.[facility] HospitalIn the event this information is protected by the Federal Confidentiality of Alcohol and Drug Abuse Patient Records regulations: The Federal rules restrict any use of the information to criminally investigate or prosecute any alcohol or drug abuse patient.[facility] HospitalIn the event this information is protected by the Federal Confidentiality of Alcohol and Drug Abuse Patient Records regulations: The Federal rules restrict any use of the information to criminally investigate or prosecute any alcohol or drug abuse patient.[facility] HospitalIn the event this information is protected by the Federal Confidentiality of Alcohol and Drug Abuse Patient Records regulations: The Federal rules restrict any use of the information to criminally investigate or prosecute any alcohol or drug abuse patient.[facility] HospitalIn the event this information is protected by the Federal Confidentiality of Alcohol and Drug Abuse Patient Records regulations: The Federal rules restrict any use of the information to criminally investigate or prosecute any alcohol or drug abuse patient.[facility] HospitalIn the event this information is protected by the Federal Confidentiality of Alcohol and Drug Abuse Patient Records regulations: The Federal rules restrict any use of the information to criminally investigate or prosecute any alcohol or drug abuse patient.[facility] HospitalIn the event this information is protected by the Federal Confidentiality of Alcohol and Drug Abuse Patient Records regulations: The Federal rules restrict any use of the information to criminally investigate or prosecute any alcohol or drug abuse patient.[facility] HospitalIn the event this information is protected by the Federal Confidentiality of Alcohol and Drug Abuse Patient Records regulations: The Federal rules restrict any use of the information to criminally investigate or prosecute any alcohol or drug abuse patient.[facility] HospitalIn the event this information is protected by the Federal Confidentiality of Alcohol and Drug Abuse Patient Records regulations: The Federal rules restrict any use of the information to criminally investigate or prosecute any alcohol or drug abuse patient.[facility] HospitalIn the event this information is protected by the Federal Confidentiality of Alcohol and Drug Abuse Patient Records regulations: The Federal rules restrict any use of the information to criminally investigate or prosecute any alcohol or drug abuse patient.[facility] HospitalIn the event this information is protected by the Federal Confidentiality of Alcohol and Drug Abuse Patient Records regulations: The Federal rules restrict any use of the information to criminally investigate or prosecute any alcohol or drug abuse patient.[facility] HospitalIn the event this information is protected by the Federal Confidentiality of Alcohol and Drug Abuse Patient Records regulations: The Federal rules restrict any use of the information to criminally investigate or prosecute any alcohol or drug abuse patient.[facility] HospitalIn the event this information is protected by the Federal Confidentiality of Alcohol and Drug Abuse Patient Records regulations: The Federal rules restrict any use of the information to criminally investigate or prosecute any alcohol or drug abuse patient.[facility] HospitalIn the event this information is protected by the Federal Confidentiality of Alcohol and Drug Abuse Patient Records regulations: The Federal rules restrict any use of the information to criminally investigate or prosecute any alcohol or drug abuse patient.[facility] HospitalIn the event this information is protected by the Federal Confidentiality of Alcohol and Drug Abuse Patient Records regulations: The Federal rules restrict any use of the information to criminally investigate or prosecute any alcohol or drug abuse patient.[facility] HospitalIn the event this information is protected by the Federal Confidentiality of Alcohol and Drug Abuse Patient Records regulations: The Federal rules restrict any use of the information to criminally investigate or prosecute any alcohol or drug abuse patient.[facility] [facility] the event this information is protected by the Federal Confidentiality of Alcohol and Drug Abuse Patient Records regulations: The Federal rules restrict any use of the information to criminally investigate or prosecute any alcohol or drug abuse patient.[facility] the event this information is protected by the Federal Confidentiality of Alcohol and Drug Abuse Patient Records regulations: The Federal rules restrict any use of the information to criminally investigate or prosecute any alcohol or drug abuse patient.[facility] Hospital[facility] the event this information is protected by the Federal Confidentiality of Alcohol and Drug Abuse Patient Records regulations: The Federal rules restrict any use of the information to criminally investigate or prosecute any alcohol or drug abuse patient.[facility] HospitalIn the event this information is protected by the Federal Confidentiality of Alcohol and Drug Abuse Patient Records regulations: The Federal rules restrict any use of the information to criminally investigate or prosecute any alcohol or drug abuse patient.[facility] HospitalIn the event this information is protected by the Federal Confidentiality of Alcohol and Drug Abuse Patient Records regulations: The Federal rules restrict any use of the information to criminally investigate or prosecute any alcohol or drug abuse patient.[facility] Reason for Visit (unrecogniz ed section and content) Reason Comments Physical Therapy Specialty Diagnoses / Procedures Referred By Contac t Referred To Contact [facility] Diagnoses Follow-up examination after colorectal surgery Procedures CONSULT TO PHYSICAL THERAPY PHYSICAL THERAPY EVALUATION HIGH COMPLEX [address] [place] [address] [place] [address] [facility] [address] [place] [address] Referral ID Status Reason Start Date Expiration Date Visits Requested Visits Authorized [id number] Authorized Auto-Generat ed Referral 01/04/2022 11/05/2022 30 30 Reason Comments Refill Request dexlansoprazole Reason Comments Established Patient Follow-Up Reason Comments Post Op Reason Comments Established Patient Reason Comments Appointment for script refill Reason Comments Gastroparesis 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 Medication 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 PA [...] ESOPHAGUS DOUBLE CONTRAST [place]UD[place] [address] Xr Imaging Referral ID Status Reason Start Date Expiration Date V isits Requested Visits Authorized [id number] Closed Auto-Generate d Referral 11/17/2022 12/17/2023 1 [...] ABD & PEL[place] W/[place] [address] [place] [address] Ct Imaging Referral ID Status Reason Start Date Expiration Date V isits Requested Visits Authorized [id number] Closed Auto-Generate d Referral 07/28/2022 11/05/2022 2 2 Reason Comments Urinary Retention Reason Comments Abdominal Pain Reason Comments Med Change Request Reason Comments Question Reason Comments Post-op Inspire Implant Reason Comments Anesthesia Consult Urinary urgency, Uri nary frequency, OAB (overactive bladder) and Urinary incontinence, urge Reason Onset Date Comments Pre-Op Teaching 01/22/2024 Reason Comments Patient Left Without Being Seen Care Teams (unrecognized sec tion and content) Team Status: Active Member Role Status Dates G. Parish Kaftan , DO Primary Care Provider Active Team Status: Inactive Member Role Status Dates Shannon Gómez , DO Primary Care Provider Active Niecy Duron PA-C Attending Provider Active Dairy Processing Supervisor Relationship 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 [address] [place] [address] PCP - General Family Practice 10/14/20 Dairy Processing Supervisor Relationship 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 [address] [place] [address] PCP - General Family Practice 10/14/20 Dairy Processing Supervisor Relationship 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 [address] [place] [address] PCP - General Family Practice 10/14/20 Dairy Processing Supervisor Relationship 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 [address] [place] [address] PCP - General Family Practice 10/14/20 Dairy Processing Supervisor Relationship 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 [address] [place] [address] PCP - General Family Practice 10/14/20 Dairy Processing Supervisor Relationship 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 [address] [place] [address] PCP - General Family Practice 10/14/20 Gwendolyn Stroud [facility] [place] [address] Family Practice 03/14/22 Dairy Processing Supervisor Relationship 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 [address] [place] [address] PCP - General Family Practice 10/14/20 Gwendolyn Stroud [address] [place] [address] Family Practice 03/14/22 Dairy Processing Supervisor Relationship Specialty Start Date End Date Stephonleigha Eliceo Lugo [address] [place] [address] PCP - General Family Practice 10/14/20 Gwendolyn Stroud [address] [place] [address] Family Practice 03/14/22 Dairy Processing Supervisor Relationship Specialty Start Date End Date Stephonjerometomasa Eliceo Lugo [address] [place] [address] PCP - General Family Practice 10/14/20 Gwendolyn Stroud [address] [place] [address] Family Practice 03/14/22 Dairy Processing Supervisor Relationship Specialty Start Date End Date Hernandeztomasa Eliceo Lugo [address] [place] [address] PCP - General Family Practice 10/14/20 Gwendolyn Stroud [address] [place] [address] Family Practice 03/14/22 Dairy Processing Supervisor Relationship Specialty Start Date End Date Hernandeztomasa Eliceo Lugo [address] [place] [address] PCP - General Family Practice 10/14/20 Gwendolyn Stroud [address] [place] [address] Family Practice 03/14/22 Dairy Processing Supervisor Relationship 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 [address] [place] [address] PCP - General Family Practice 10/14/20 Gwendolyn Stroud, GRAPHIC SPECIALIST Family Practice 03/14/22 Dairy Processing Supervisor Relationship 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 [address] [place] [address] PCP - General Family Practice 10/14/20 Gwendolyn Stroud, GRAPHIC SPECIALIST Family Practice 03/14/22 Dairy Processing Supervisor Relationship 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 [address] [place] [address] PCP - General Family Practice 10/14/20 Gwendolyn Stroud, GRAPHIC SPECIALIST Family Practice 03/14/22 Dairy Processing Supervisor Relationship 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 [address] [place] [address] PCP - General Family Practice 10/14/20 Gwendolyn Stroud, GRAPHIC SPECIALIST Family Practice 03/14/22 Dairy Processing Supervisor Relationship 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 [address] [place] [address] PCP - General Family Medicine 10/14/20 Gwendolyn Stroud, GRAPHIC SPECIALIST Family Medicine 03/14/22 Dairy Processing Supervisor Relationship 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 [address] [place] [address] PCP - General Family Medicine 10/14/20 Gwendolyn Stroud CNP Family Medicine 03/14/22 Dairy Processing Supervisor Relationship 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 [address] [place] [address] PCP - General Family Medicine 10/14/20 Gwendolyn Stroud CNP Family Medicine 03/14/22 Dairy Processing Supervisor Relationship 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 [address] [place] [address] PCP - General Family Medicine 10/14/20 Gwendolyn Stroud CNP Family Medicine 03/14/22 Team Status: Inactive Member Role Status Dates Shannon Gómez , Primary Care Provider Active Beto Harris MD Attending Provider Active Dairy Processing Supervisor Relationship 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 [address] [place] [address] PCP - General Family Medicine 10/14/20 Gwendolyn Stroud, GRAPHIC SPECIALIST [address] [place] [address] Family Medicine 03/14/22 Dairy Processing Supervisor Relationship 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 [address] [place] [address] PCP - General Family Medicine 10/14/20 Gwendolyn Stroud, GRAPHIC SPECIALIST [address] [place] [address] Family Medicine 03/14/22 Dairy Processing Supervisor Relationship 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 [address] [place] [address] PCP - General Family Medicine 10/14/20 Gwendolyn Stroud, GRAPHIC SPECIALIST [address] [place] [address] Family Medicine 03/14/22 Dairy Processing Supervisor Relationship 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 [address] [place] [address] PCP - General Family Medicine 10/14/20 Gwendolyn Stroud, GRAPHIC SPECIALIST [address] [place] [address] Family Medicine 03/14/22 Dairy Processing Supervisor Relationship 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 [address] [place] [address] PCP - General Family Medicine 10/14/20 Gwendolyn Stroud, GRAPHIC SPECIALIST [address] [place] [address] Family Medicine 03/14/22 Dairy Processing Supervisor Relationship 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 [address] [place] [address] PCP - General Family Medicine 10/14/20 Gwendolyn Stroud, GRAPHIC SPECIALIST [address] [place] [address] Family Medicine 03/14/22 Dairy Processing Supervisor Relationship 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 [address] [place] [address] PCP - General Family Medicine 10/14/20 Gwendolyn Stroud CNP [address] [place] [address] Family Medicine 03/14/22 Dairy Processing Supervisor Relationship 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 [address] [place] [address] PCP - General Family Medicine 10/14/20 Gwendolyn Stroud CNP [address] [place] [address] Family Medicine 03/14/22 Dairy Processing Supervisor Relationship 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 [address] [place] [address] PCP - General Family Medicine 10/14/20 Gwendolyn Stroud CNP [address] [place] [address] Family Medicine 03/14/22 Dairy Processing Supervisor Relationship 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 [address] [place] [address] PCP - General Family Medicine 10/14/20 Gwendolyn Stroud, GRAPHIC SPECIALIST [address] [place] [address] Family Medicine 03/14/22 Dairy Processing Supervisor Relationship 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 [address] [place] [address] PCP - General Family Medicine 10/14/20 Gwendolyn Stroud, GRAPHIC SPECIALIST [address] [place] [address] Family Medicine 03/14/22 Team Status: Inactive Member Role Status Henrietta Gómez DO Primary Care Provider Active Beto Cartagena MD Attending Provider Active Dairy Processing Supervisor Relationship 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 [address] [place] [address] PCP - General Family Medicine 10/14/20 Gwendolyn Stroud, GRAPHIC SPECIALIST [address] [place] [address] Family Medicine 03/14/22 Dairy Processing Supervisor Relationship 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 [address] [place] [address] PCP - General Family Medicine 10/14/20 Gwendolyn Stroud, GRAPHIC SPECIALIST [address] [place] [address] Family Medicine 03/14/22 Dairy Processing Supervisor Relationship 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 [address] [place] [address] PCP - General Family Medicine 10/14/20 Gwendolyn Stroud, GRAPHIC SPECIALIST [address] [place] [address] Family Medicine 03/14/22 Dairy Processing Supervisor Relationship 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 [address] [place] [address] PCP - General Family Medicine 10/14/20 Gwendolyn Stroud, GRAPHIC SPECIALIST [address] [place] [address] Family Medicine 03/14/22 Dairy Processing Supervisor Relationship 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 [address] [place] [address] PCP - General Family Medicine 10/14/20 Gwendolyn Stroud CNP [address] [place] [address] Family Medicine 03/14/22 Dairy Processing Supervisor Relationship 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 [address] [place] [address] PCP - General Family Medicine 10/14/20 Gwendolyn Stroud CNP [address] [place] [address] Family Medicine 03/14/22 Dairy Processing Supervisor Relationship 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 [address] [place] [address] PCP - General Family Medicine 10/14/20 Gwendolyn Stroud CNP [address] [place] [address] Family Medicine 03/14/22 Dairy Processing Supervisor Relationship 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 [address] [place] [address] PCP - General Family Medicine 10/14/20 Gwendolyn Stroud CNP [address] [place] [address] Family Medicine 03/14/22 Team Status: Inactive Member Role Status Dates G. Parish Kaftan , DO Primary Care Provider Active Anibal Valle , DO Emergency Provider Active Dairy Processing Supervisor Relationship 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 [address] [place] [address] PCP - General Family Medicine 10/14/20 Gwendolyn Stroud CNP [address] [place] [address] Family Medicine 03/14/22 Dairy Processing Supervisor Relationship 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 [address] [place] [address] PCP - General Family Medicine 10/14/20 Gwendolyn Stroud CNP [address] [place] [address] Family [facility] 03/14/22 Dairy Processing Supervisor Relationship 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 [address] [place] [address] PCP - General Family Medicine 10/14/20 Gwendolyn Stroud CNP [address] [place] [address] Family Medicine 03/14/22 Dairy Processing Supervisor Relationship 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, DO [address] [place] [address] PCP - General Family Medicine 10/14/20 Gwendolyn Stroud CNP [address] [place] [address] Family Medicine 03/14/22 Dairy Processing Supervisor Relationship 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, DO [address] [place] [address] PCP - General Family Medicine 10/14/20 Gwendolyn Stroud, KWESI [address] [place] [address] Family Medicine 03/14/22 Dairy Processing Supervisor Relationship 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, [address] [place] [address] PCP - General Family Medicine 12/11/19 Team Status: Inactive Member Role Status Henrietta Gómez DO Primary Care Provider Active Start: November 23, 2023 End: November 23, 2023 Eagle Vazquez DO Attending Provider Active Start : November 23, 2023 End: November 23, 2023 Dairy Processing Supervisor Relationship 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, [address] [place] [address] PCP - General Family Medicine 12/11/19 [facility] [address] [place], [place] [phone] (Work) Consulting Physician Behavioral Health 12/20/23 Dairy Processing Supervisor Relationship 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, DO [address] [place] [address] PCP - General Family Medicine 10/14/20 Gwendolyn Stroud, KWESI [address] [place] [address] Family Medicine 03/14/22 Dairy Processing Supervisor Relationship 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, DO [address] [place] [address] PCP - General Family Medicine 12/11/19 [facility] [address] [phone] (Work) Consulting Physician Behavioral Health 12/20/23 Dairy Processing Supervisor Relationship 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, DO [address] [place] [address] PCP - General Family Medicine 10/14/20 Gwendolyn Stroud, KWESI [address] [place] [address] Family Medicine 03/14/22 Dairy Processing Supervisor Relationship 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, DO [address] [place] [address] PCP - General Family Medicine 12/11/19 [facility] [address] [phone] (Work) Consulting Physician Behavioral Health 12/20/23 Dairy Processing Supervisor Relationship 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, DO [address] [place] [address] PCP - General Family Medicine 10/14/20 Gwendolyn Stroud, GRAPHIC SPECIALIST [address] [place] [address] Family Medicine 03/14/22 Dairy Processing Supervisor Relationship 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, DO [address] [place] [address] PCP - General [facility] Medicine 10/14/20 Gwendolyn Stroud CNP [address] [place] [address] Family Medicine 03/14/22 Dairy Processing Supervisor Relationship Specialty Start Date End Date StephonEliceo randolph Jr., DO [address] [place] [address] PCP - General [facility] 10/14/20 Gwendolyn Stroud CNP [address] [place] [address] [facility] 03/14/22 Dairy Processing Supervisor Relationship 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, DO [address] [place] [address] PCP - General [facility] 10/14/20 Gwendolyn Stroud CNP [address] [place] [address] [facility] 03/14/22 Goals (unrecognized section and content) Goals [...] BE BASED ON THE PRIMARY CLINICAL RECORDS. [facility]. provides no warranty or guarantee of the accuracy or completeness of information in this document.
[2024-02-26 07:35] VITALS: BP 121/83; PULSE 66; O2SAT 98
[2024-02-26 07:38] VITALS: BP 125/82; PULSE 63; O2SAT 94
[2024-02-26] MEDS: BUPIVACAINE HCL 0.25% PF 25 MG/10 ML VIAL 6 ML INJ (07:39)
--- NOTE | 2024-02-26 07:40 | W.PM.PROCNOT ---
Date of procedure: 02/26/24 Pre-op diagnosis: Cervical spondylosis Post-op diagnosis: same as pre-op Procedure: Procedure: Bilateral C2-3, C3-4 medial branch block Medications: Bupivacaine 0.25% 6cc The patient was seen and examined in the preoperative holding area.? The informed consent was obtained and placed on the chart.? The patient was brought to the medical procedure unit and placed in the prone position.? A timeout was completed verifying correct patient, procedure site, positioning, plan, and special equipment.? Using aseptic technique, the needle was placed at left C2.? Under direct fluoroscopic visualization, a Quincke tip needle was advanced to the midpoint of the waist of the articular pillar at the respective medial branch segment. The above-mentioned injectate was placed in a 1 mL aliquot proceeded by negative aspiration.? The needle was removed.? The procedure was completed at all left C3, 4. The same procedure, at the same levels, was then completed on the right side. Insertion site was covered.? Patient was taken to the postprocedural recovery area and monitored for an appropriate length of time before found suitable for discharge in the accompaniment of a responsible adult. Anesthesia: Local Surgeon: Ace Ahumada Pathology: none sent Condition: stable Disposition: no change
[2024-02-26] MEDS: LIDOCAINE HCL 2% 400 MG/20 ML MDV INJ (07:41)
== END 2024-02-26 07:42 | disposition home or self-care (01) ==
LOC: SURGOUT 06:43
PROVIDERS: PCP Family Medicine; Visit Provider Anesthesiology
DX: M47.812 Spondylosis without myelopathy or radiculopathy, cervical region (principal)
CPT/HCPCS: 64490; 64491

== ENCOUNTER 2024-02-28 09:07 | Outpatient (OUT) | payer OTHER, SELFPAY ==
--- NOTE | 2024-02-28 | XR_ITS ---
The [address] [address] Patient Name: ELSIE FUENTES MRN: [id number] date: 1970 Sex: F Assigned Patient Location: Current Patient Location: Accession/Order Number: [id number] Exam Date: 02/28/2024 09:13 Report Date: 02/29/2024 06:37 At the request of: SADE WILDE Procedure: XR foot RT min 3V PROCEDURE: XR foot RT min 3V HISTORY: RIGHT FOOT PAIN COMPARISON: XR foot right 11/13/2023 FINDINGS: BONES:Prior fusion of the talonavicular and talocalcaneal joints via lag screws. Prior calcaneal anterior posterior osteotomy with wedge placement anteriorly. Osteotomy and wedge placement within medial cuneiform. Osteotomy and single screw repair of head of first metatarsal. No appreciable hardware fracture or loosening. No bone fracture dislocation. Multifocal mild degenerative joint disease. SOFT TISSUES:No visible soft tissue swelling. EFFUSION:None visible. OTHER: Negative. XR/XR foot RT min 3V IMPRESSION: 1. Stable surgical changes without evidence of hardware failure or change in alignment. Electronically authenticated by: ZAIDA ACOSTA Date: 02/29/2024 06:37
== END 2024-02-28 09:08 | disposition home or self-care (01) ==
LOC: EC 09:07
PROVIDERS: PCP Family Medicine; Visit Provider Podiatrist Foot & Ankle Surgery
DX: S93.30 Unspecified subluxation and dislocation of foot (principal); Z98.890 Other specified postprocedural states
CPT/HCPCS: 73630

== ENCOUNTER 2024-03-04 12:32 | Outpatient (OUT) | payer OTHER, SELFPAY ==
--- NOTE | 2024-03-04 13:38 | P.CN_ITS ---
Consult Note: HPI Data of Consult Patient: known to practice within the last 3 years Consult date: 03/04/24 Requesting Physician: Ace Ahumada MD Primary Care Provider: Isatu CASTRO Consult Narrative Reason for consult: neck, midback pain Narrative: 53yof who presents for assessment. recently had cervical mbb and had significant relief of >80% for over 2 hours and subsequent return of pain to baseline. also has persistent midback pain bilaterally. continues in series of provider directed home exercises >6 weeks, with minimal benefit. uses celebrex, with limited benefit. denies adverse med side effects. cc:: CC: Ace Ahumada MD Review of Systems ROS Status of ROS 10 or more systems reviewed and unremark able except as noted in history and below [facility] Medical History Panic attacks ?F41.0 - Panic disorder [episodic paroxysmal anxiety] (ICD-10) OCD (obsessive compulsive disorder) ?F42.9 - Obsessive-compulsive disorder, unspecified (ICD-10) COVID-19 ?U07.1 - COVID-19 (ICD-10) Migraine ?G43.909 - Migraine, unspecified, not intractable, without status migrainosus (ICD-10) Gastritis ?K29.70 - Gastritis, unspecified, without bleeding (ICD-10) GERD (gastroesophageal reflux disease) ?K21.9 - Gastro-esophageal reflux disease without esophagitis (ICD-10) Peroneal tendinitis ?M76.70 - Peroneal tendinitis, unspecified leg (ICD-10) Posterior tibial tendon dysfunction ?M76.829 - Posterior tibial tendinitis, unspecified leg (ICD-10) Painful orthopaedic hardware ?T84.84XA - Pain due to internal orthopedic prosthetic devices, implants and grafts, initial encounter (ICD-10) Cellulitis ?L03.90 - Cellulitis, unspecified (ICD-10) Post op infection ?T81.40XA - Infection following a procedure, unspecified, initial encounter (ICD-10) Restless leg syndrome ?G25.81 - Restless legs syndrome (ICD-10) Tibialis anterior tendon tear, traumatic ?S86.219A - Strain of muscle(s) and tendon(s) of anterior muscle group at lower leg level, unspecified leg, initial encounter (ICD-10) Osteoarthritis ?M19.90 - Unspecified osteoarthritis, unspecified site (ICD-10) Back pain ?M54.9 - Dorsalgia, unspecified (ICD-10) Sleep disorder ?G47.9 - Sleep disorder, unspecified (ICD-10) PTSD (post-traumatic stress disorder) ?F43.10 - Post-traumatic stress disorder, unspecified (ICD-10) Depression ?F32.A - Depression, unspecified (ICD-10) Anxiety ?F41.9 - Anxiety disorder, unspecified (ICD-10) Sleep apnea ?G47.30 - Sleep apnea, unspecified (ICD-10) Asthma ?J45.909 - Unspecified asthma, uncomplicated (ICD-10) Constipation ?K59.00 - Constipation, unspecified (ICD-10) High cholesterol ?E78.00 - Pure hypercholesterolemia, unspecified (ICD-10) Hypertension ?I10 - Essential (primary) hypertension (ICD-10) Female rectocele with enterocele ?N81.6 - Rectocele (ICD-10) ?K46.9 - Unspecified abdominal hernia without obstruction or gangrene (ICD- 10) 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 - Other specified functional intestinal disorders (ICD-10) Surgical History H/O tooth extraction ?K08.409 - Partial loss of teeth, unspecified cause, unspecified class (ICD- 10) H/O foot surgery (05/12/23) ?Z98.890 - Other specified postprocedural states (ICD-10) History of appendectomy (1987) ?Z90.49 - Acquired absence of other specified parts of digestive tract (ICD- 10) History of colonoscopy ?Z98.890 - Other specified postprocedural states (ICD-10) History of colectomy (03/2022) ?Z90.49 - Acquired absence of other specified parts of digestive tract (ICD- 10) History of tonsillectomy and adenoidectomy ?Z90.89 - Acquired absence of other organs (ICD-10) History of hysterectomy (2014) ?Z90.710 - Acquired absence of both cervix and uterus (ICD-10) History of arthroplasty of right ankle ?Z98.890 - Other specified postprocedural states (ICD-10) History of repair of rotator cuff ?Z98.890 - Other specified postprocedural states (ICD-10) S/P ankle ligament repair (2020) ?Z98.890 - Other specified postprocedural states (ICD-10) Family History Other Family history of Alzheimer's disease Family history of coronary artery disease Family history of heart disease Family history of hypertension Social History Within the past year, how often did you have a drink containing alcohol: never Score interpretation: A score less than 3 is consistent with normal alcohol consumption. Smoking status: Never smoker Non-prescribed substance use: denies use Previous occupational history: unemployed Highest level of school completed/degree received: some college, no degree Little interest or pleasure in doing things: not at all Feeling down, depressed, or hopeless: not at all Feel stressed/tense/nervous/anxious/difficulty sleeping: only a little Due to disability, difficulty making decisions: No Do you think of yourself as: straight/heterosexual Gender Identity: female Meds Home Medications and Allergies Home Medications ?Medication ?Instructions ?Recorded ?Confirmed ?Type atenolol 25 mg tablet 25 mg PO Q24H 05/04/23 02/26/24 History fremanezumab-vfrm 225 mg/1.5 mL 125 mg subcut .o21pgkg 05/04/23 02/26/24 History subcutaneous auto-injector (Ajovy) ropinirole 1 mg tablet 1 mg PO QAM 05/04/23 02/26/24 History ropinirole 2 mg tablet 2 mg PO QPM 05/04/23 02/26/24 History aripiprazole 9.75 mg/1.3 mL 300 mg IM .monthly 10/29/23 02/26/24 History intramuscular solution daridorexant 25 mg tablet (Quviviq) 25 mg PO QPM 10/29/23 02/26/24 History fluticasone fur. 100 mcg-umeclid 1 inh inhalation Q24H 11/03/23 02/26/24 History 62.5 mcg-vilant 25 mcg inhalat.powder (Trelegy Ellipta) lamotrigine 25 mg disintegrating 25 mg PO DAILY 11/03/23 02/26/24 History tablet ondansetron 4 mg disintegrating 4 mg PO Q8H PRN nausea and 11/13/23 02/26/24 Rx tablet vomiting 5 days #15 tabs celecoxib 200 mg capsule (Celebrex) 200 mg PO BID 12/11/23 02/26/24 History lisdexamfetamine 30 mg capsule 30 mg PO DAILY 12/11/23 02/26/24 History (Vyvanse) Allergies Allergy/AdvReac Type Severity Reaction Status Date / Time risperidone [From Risperdal] AdvReac Mild breast Verified 01/15/24 07:09 nipples leak Exam Narrative Exam Narrative: Psych-alert and oriented x 3.? Attentive and appropriate, constitutionally normal, displays normal mood and affect per situation.? There are no obvious deficits in memory, reasoning, or intellect.? Skin-no obvious rashes, bruising, or erythema noted to the patient's area of pain. Extremities-upper extremities are warm with minimal edema and palpable pulses. Cervical- tenderness to palpation noted in the cervical spine and paraspinal musculature.? Pain is elicited with extension, and lateral rotation of the cervical spine.? Range of motion is slightly diminished due to pain. Facet loading maneuvers are positive bilaterally. Thoracic - tender to palpation in paraspinal musculature. Multiple trigger points expressed on palpation. Coordination remains intact.? Gait remains non-antalgic. Assessment and Plan Assessment and Plan (1) Cervical spondylosis: (2) Myofascial pain: Plan 53yof who presents for assessment. failed conservative measures, as noted. given significant relief after first diagnostic bilateral c2-3, 3-4 medial branch block, prudent to proceed with second diagnostic bilateral c2-3, 3-4 medial branch block under fluoroscopic guidance with intention of proceeding to rfa. she is in agreement. in terms of midback pain, prudent to proceed with thoracic paraspinal trigger point injections. she is in agreement. meds reviewed, will trial lyrica 50mg tid. has trialed gabapentin previously without benefit. follow up after procedure. Procedure: Bilateral thoracic paraspinal trigger point injection Medications: Bupivacaine 0.25% 4cc, kenalog 40mg I explained the details of the procedure to the patient including the risks, benefits, and alternatives.? We had an informed discussion.? The patient verbalized understanding and signed the consent form.? All questions were answered appropriately.? A time-out was performed.? After obtai belen a comfortable seated position, the skin overlying the thoracic area bilaterally was prepped with alcohol 3 times. The needle was inserted in a sterile manner through the skin towards the palpated trigger point areas. The contents of the syringe were gently injected without any resistance 1cc at a time into the appropriate trigger point.? The needle was removed and pressure was applied at the injection site to decrease the incidence of ecchymosis and hematoma formation.? A sterile bandage was applied. The patient tolerated the procedure well.
== END 2024-03-04 12:33 | disposition home or self-care (01) ==
LOC: PM 12:32
PROVIDERS: PCP Family Medicine; Visit Provider Anesthesiology
DX: M47.812 Spondylosis without myelopathy or radiculopathy, cervical region (principal); M79.18 Myalgia, other site
CPT/HCPCS: 20553

== ENCOUNTER 2024-03-07 12:50 | Outpatient (RCR) | payer OTHER, SELFPAY | END 2024-04-10 15:46 | disposition home or self-care (01) | LOC: PT 12:50 | PROVIDERS: PCP Family Medicine; Visit Provider Podiatrist Foot & Ankle Surgery | DX: M76.71 Peroneal tendinitis, right leg (principal); Z98.890 Other specified postprocedural states; R26.89 Other abnormalities of gait and mobility; R26.9 Unspecified abnormalities of gait and mobility; T84.84XD Pain due to internal orthopedic prosthetic devices, implants and grafts, subsequent encounter | CPT/HCPCS: 97110; 97113; 97161 ==

== ENCOUNTER 2024-03-20 09:50 | Outpatient (OUT) | payer OTHER, SELFPAY ==
--- NOTE | 2024-03-20 | XR_ITS ---
The [address] [address] Patient Name: ELSIE FUENTES MRN: [id number] date: 1970 Sex: F Assigned Patient Location: Current Patient Location: Accession/Order Number: [id number] Exam Date: 03/20/2024 09:50 Report Date: 03/20/2024 10:17 At the request of: SADE WILDE Procedure: XR foot RT min 3V PROCEDURE: XR foot RT min 3V COMPARISON: 02/28/2024 HISTORY: RIGHT FOOT PAIN FINDINGS: BONES:Stable triple arthrodesis. Anterior and posterior calcaneal osteotomies with anterior wedge spacer. Subtalar fusion. Talonavicular fusion. Osteotomy and wedged spacer medial cuneiform. Remote osteotomy and screw placement first metatarsal head. No acute fracture, dislocation or mechanical failure.. SOFT TISSUES:Negative. No visible soft tissue swelling. EFFUSION:None visible. OTHER: Negative. XR/XR foot RT min 3V IMPRESSION: Stable postsurgical changes Electronically authenticated by: NICKI DACOSTA Date: 03/20/2024 10:17
== END 2024-03-20 09:51 | disposition home or self-care (01) ==
LOC: EC 09:50
PROVIDERS: PCP Family Medicine; Visit Provider Podiatrist Foot & Ankle Surgery
DX: M79.671 Pain in right foot (principal); Z98.890 Other specified postprocedural states
CPT/HCPCS: 73630

== ENCOUNTER 2024-03-25 09:11 | Day surgery (SDC) | payer OTHER, SELFPAY ==
[2024-03-25 09:49] VITALS: BP 144/92; PULSE 61; TEMP 37.1; O2SAT 100
[2024-03-25] MEDS: LIDOCAINE HCL 2% PF 100 MG/5 ML VIAL INJ (10:10)
[2024-03-25] MEDS: BUPIVACAINE HCL 0.25% PF 25 MG/10 ML VIAL INJ (10:10)
[2024-03-25 10:11] VITALS: BP 148/86; BP 156/82; PULSE 67; PULSE 68; O2SAT 100; O2SAT 99
--- NOTE | 2024-03-25 10:14 | P.ON_ITS ---
Date of procedure: 03/25/24 Pre-op diagnosis: Cervical spondylosis Post-op diagnosis: same as pre-op Procedure: Procedure: Bilateral C2-3, C3-4 medial branch blocks Medications: Bupivacaine 0.25% 6cc The patient was seen and examined in the preoperative holding area.? The informe d consent was obtained and placed on the chart.? The patient was brought to the medical procedure unit and placed in the prone position.? A timeout was completed verifying correct patient, procedure site, positioning, plan, and special equipment.? Using aseptic technique, the needle was placed at left C2.? Under direct fluoroscopic visualization, a Quincke tip needle was advanced to the midpoint of the waist of the articular pillar at the respective medial branch segment. The above-mentioned injectate was placed in a 1 mL aliquot proceeded by negative aspiration.? The needle was removed.? The procedure was completed at all left C3, 4. The same procedure, at the same levels, was then completed on the right side. Insertion site was covered.? Patient was taken to the postprocedural recovery area and monitored for an appropriate length of time before found suitable for discharge in the accompaniment of a responsible adult. Anesthesia: Local Surgeon: Ace Ahumada Pathology: none sent Condition: stable Disposition: no change
== END 2024-03-25 10:16 | disposition home or self-care (01) ==
LOC: SURGOUT 09:12
PROVIDERS: PCP Family Medicine; Visit Provider Anesthesiology
DX: M47.812 Spondylosis without myelopathy or radiculopathy, cervical region (principal)
CPT/HCPCS: 64490; 64491

== ENCOUNTER 2024-04-03 14:05 | Outpatient (OUT) | payer OTHER, SELFPAY ==
--- NOTE | 2024-04-03 14:18 | P.CN_ITS ---
Consult Note: HPI Data of Consult Patient: known to practice within the last 3 years Consult date: 03/04/24 Requesting Physician: Monica Burns NP Primary Care Provider: Isatu CASTRO Consult Narrative Reason for consult: neck, midback pain Narrative: 53yof who presents for assessment. recently had cervical mbb #2 and had significant relief of >80% for over 2 hours and subsequent return of pain to baseline. also has persistent midback pain bilaterally. continues in series of provider directed home exercises >6 weeks, with minimal benefit. uses celebrex, with limited benefit. denies adverse med side effects. cc:: CC: Monica Burns NP Review of Systems ROS Status of ROS 10 or more systems reviewed and unremark able except as noted in history and below Musculoskeletal Reports: back pain and neck pain PFSH PFSH Medical History Panic attacks ?F41.0 - Panic disorder [episodic paroxysmal anxiety] (ICD-10) OCD (obsessive compulsive disorder) ?F42.9 - Obsessive-compulsive disorder, unspecified (ICD-10) COVID-19 ?U07.1 - COVID-19 (ICD-10) Migraine ?G43.909 - Migraine, unspecified, not intractable, without status migrainosus (ICD-10) Gastritis ?K29.70 - Gastritis, unspecified, without bleeding (ICD-10) GERD (gastroesophageal reflux disease) ?K21.9 - Gastro-esophageal reflux disease without esophagitis (ICD-10) Peroneal tendinitis ?M76.70 - Peroneal tendinitis, unspecified leg (ICD-10) Posterior tibial tendon dysfunction ?M76.829 - Posterior tibial tendinitis, unspecified leg (ICD-10) Painful orthopaedic hardware ?T84.84XA - Pain due to internal orthopedic prosthetic devices, implants and grafts, initial encounter (ICD-10) Cellulitis ?L03.90 - Cellulitis, unspecified (ICD-10) Post op infection ?T81.40XA - Infection following a procedure, unspecified, initial encounter (ICD-10) Restless leg syndrome ?G25.81 - Restless legs syndrome (ICD-10) Tibialis anterior tendon tear, traumatic ?S86.219A - Strain of muscle(s) and tendon(s) of anterior muscle group at lo wer leg level, unspecified leg, initial encounter (ICD-10) Osteoarthritis ?M19.90 - Unspecified osteoarthritis, unspecified site (ICD-10) Back pain ?M54.9 - Dorsalgia, unspecified (ICD-10) Sleep disorder ?G47.9 - Sleep disorder, unspecified (ICD-10) PTSD (post-traumatic stress disorder) ?F43.10 - Post-traumatic stress disorder, unspecified (ICD-10) Depression ?F32.A - Depression, unspecified (ICD-10) Anxiety ?F41.9 - Anxiety disorder, unspecified (ICD-10) Sleep apnea ?G47.30 - Sleep apnea, unspecified (ICD-10) Asthma ?J45.909 - Unspecified asthma, uncomplicated (ICD-10) Constipation ?K59.00 - Constipation, unspecified (ICD-10) High cholesterol ?E78.00 - Pure hypercholesterolemia, unspecified (ICD-10) Hypertension ?I10 - Essential (primary) hypertension (ICD-10) Female rectocele with enterocele ?N81.6 - Rectocele (ICD-10) ?K46.9 - Unspecified abdominal hernia without obstruction or gangrene (ICD- 10) 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 - Other specified functional intestinal disorders (ICD-10) Surgical History H/O tooth extraction ?K08.409 - Partial loss of teeth, unspecified cause, unspecified class (ICD- 10) H/O foot surgery (05/12/23) ?Z98.890 - Other specified postprocedural states (ICD-10) History of appendectomy (1987) ?Z90.49 - Acquired absence of other specified parts of digestive tract (ICD- 10) History of colonoscopy ?Z98.890 - Other specified postprocedural states (ICD-10) History of colectomy (03/2022) ?Z90.49 - Acquired absence of other specified parts of digestive tract (ICD- 10) History of tonsillectomy and adenoidectomy ?Z90.89 - Acquired absence of other organs (ICD-10) History of hysterectomy (2014) ?Z90.710 - Acquired absence of both cervix and uterus (ICD-10) History of arthroplasty of right ankle ?Z98.890 - Other specified postprocedural states (ICD-10) History of repair of rotator cuff ?Z98.890 - Other specified postprocedural states (ICD-10) S/P ankle ligament repair (2020) ?Z98.890 - Other specified postprocedural states (ICD-10) Family History Other Family history of Alzheimer's disease Family history of coronary artery disease Family history of heart disease Family history of hypertension Social History Within the past year, how often did you have a drink containing alcohol: never Score interpretation: A score less than 3 is consistent with normal alcohol consumption. Smoking status: Never smoker Non-prescribed substance use: denies use Previous occupational history: unemployed Highest level of school completed/degree received: some college, no degree Little interest or pleasure in doing things: not at all Feeling down, depressed, or hopeless: not at all Feel stressed/tense/nervous/anxious/difficulty sleeping: only a little Due to disability, difficulty making decisions: No Do you think of yourself as: straight/heterosexual Gender Identity: female Meds Home Medications and Allergies Home Medications ?Medication ?Instructions ?Recorded ?Confirmed ?Type atenolol 25 mg tablet 25 mg PO Q24H 05/04/23 03/25/24 History fremanezumab-vfrm 225 mg/1.5 mL 125 mg subcut .k70zcip 05/04/23 03/25/24 History subcutaneous auto-injector (Ajovy) ropinirole 1 mg tablet 1 mg PO QAM 05/04/23 03/25/24 History ropinirole 2 mg tablet 2 mg PO QPM 05/04/23 02/26/24 History aripiprazole 9.75 mg/1.3 mL 300 mg IM .monthly 10/29/23 03/25/24 History intramuscular solution daridorexant 25 mg tablet (Quviviq) 25 mg PO QPM 10/29/23 03/25/24 History fluticasone fur. 100 mcg-umeclid 1 inh inhalation Q24H 11/03/23 03/25/24 History 62.5 mcg-vilant 25 mcg inhalat.powder (Trelegy Ellipta) lamotrigine 25 mg disintegrating 25 mg PO DAILY 11/03/23 03/25/24 History tablet lisdexamfetamine 30 mg capsule 30 mg PO DAILY 12/11/23 03/25/24 History (Vyvanse) Allergies Allergy/AdvReac Type Severity Reaction Status Date / Time risperidone [From Risperdal] AdvReac Mild breast Verified 03/25/24 09:46 nipples leak Exam Narrative Exam Narrative: Psych-alert and oriented x 3.? Attentive and appropriate, constitutionally normal, displays normal mood and affect per situation.? There are no obvious deficits in memory, reasoning, or intellect.? Skin-no obvious rashes, bruising, or erythema noted to the patient's area of pain. Extremities-upper extremities are warm with minimal edema and palpable pulses. Cervical- tenderness to palpation noted in the cervical spine and paraspinal musculature.? Pain is elicited with extension, and lateral rotation of the cervical spine.? Range of motion is slightly diminished due to pain. Facet loading maneuvers are positive bilaterally. Thoracic - tender to palpation in paraspinal musculature. Multiple trigger points expressed on palpation. Coordination remains intact.? Gait remains non-antalgic. Assessment and Plan Assessment and Plan (1) Cervical spondylosis: Assessment and Plan: The patient has had over 3 months of moderate to severe neck pain with functional impairment and inadequate response to conservative care including NSAIDS (unless there are contraindication such as concurrent blood thinners), multiple oral or topical pain medications, and home exercise program/physical therapy.? Patient has completed >6 weeks of guided home exercise program and/or formal physical therapy program without relief of their symptoms.? I have reviewed the imaging of the cervical spine and no red flags were iden tified.? The imaging reveals radiographic findings consistent with cervical spondylosis We discussed the risks and benefits of the procedure with the patient, and we are NOT planning on using sedation as outlined in the guidelines from Medicare unless there is a documented reason that sedation would be strongly recommended.?? ?The procedure will be completed with fluoroscopic guidance.? (2) Cervical stenosis of spinal canal: (3) Cervical post-laminectomy syndrome: (4) Myofascial pain: (5) Thoracic back pain: Plan left then right C2-3 C3-4 facet medial branch thermal RFA under fluoroscopy with IV sedation due to inability to safely tolerate the procedure due to anxiety/discomfort caution repeat ESIs with psychiatric hx, no side effects doing well at this time. return to office with Dr Ahumada for bilateral parathoracic TPIs, previously found significant benefit and would like to repeat f/u after RFA
== END 2024-04-03 14:06 | disposition home or self-care (01) ==
LOC: PM 14:06
PROVIDERS: PCP Family Medicine; Visit Provider Nurse Practitioner
DX: M47.812 Spondylosis without myelopathy or radiculopathy, cervical region (principal); M48.02 Spinal stenosis, cervical region; M96.1 Postlaminectomy syndrome, not elsewhere classified; M79.18 Myalgia, other site; M54.6 Pain in thoracic spine
CPT/HCPCS: G0463

== ENCOUNTER 2024-04-17 11:48 | Outpatient (OUT) | payer OTHER, SELFPAY ==
--- NOTE | 2024-04-17 | XR_ITS ---
The [address] [address] Patient Name: ELSIE FUENTES MRN: [id number] date: 1970 Sex: F Assigned Patient Location: Current Patient Location: Accession/Order Number: [id number] Exam Date: 04/17/2024 11:50 Report Date: 04/17/2024 13:17 At the request of: SADE WILDE Procedure: XR foot RT min 3V PROCEDURE: XR foot RT min 3V COMPARISON: 03/20/2024 HISTORY: RIGHT FOOT PAIN . FINDINGS: BONES:stable triple arthrodesis. Subtalar and talonavicular joint fusion with no mechanical failure. Anterior calcaneal and medial cuneiform osteotomy with wedged spacer placement. Remote osteotomy and screw placement at of the first metatarsal SOFT TISSUES:Negative. No visible soft tissue swelling. EFFUSION:None visible. OTHER: Negative. XR/XR foot RT min 3V IMPRESSION: Stable triple arthrodesis with no mechanical failure Electronically authenticated by: NICKI DACOSTA Date: 04/17/2024 13:17
== END 2024-04-17 11:49 | disposition home or self-care (01) ==
LOC: EC 11:48
PROVIDERS: PCP Family Medicine; Visit Provider Podiatrist Foot & Ankle Surgery
DX: M19.071 Primary osteoarthritis, right ankle and foot (principal); Z98.1 Arthrodesis status
CPT/HCPCS: 73630

== ENCOUNTER 2024-04-21 22:10 | Emergency (ER) | payer OTHER, SELFPAY ==
[2024-04-21 22:14] VITALS: BP 138/94; PULSE 83; TEMP 36.5; O2SAT 100; BMI 259.2
--- OUTSIDE RECORDS SUMMARY | 2024-04-21 22:20 | XMS_ITS | CCD ---
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 Primary Care Provider Gwendolyn Stroud Unavailable Maximus OROSCO, Gwendolyn Unavailable Beto Harris Unavailable Tita Daugherty Unavailable Erica Kingston Unavailable Eliceo Gómez Unavailable Unavailable Unavailable Allison Arita Unavailable Eliceo Gómez Jr. Primary Care Provider Maximus OROSCO, Gwendolyn Unavailable Eliceo Gómez Unavailable DO Shannon Gómez Primary Care Provider [phone] MD Beto Harris Attending Provider Eliceo Gómez Jr. Primary Care Provider Maximus OROSCO, Gwendolyn Unavailable Beto Cartagena Unavailable MD Beto Cartagena Attending Provider WINSTON HANNAH Attending Unavailable WINSTON HANNAH Referring Unavailable ELICEO GÓMEZ JR Primary Care Unavail able ISRA MASTERS Attending Unavailable ISRA MASTERS Referring Unavailable ELICEO GÓMEZ JR Primary Care Unavail able DO Shannon Gómez Primary Care Provider LORRAINE Duron Attending Provider [phone] JEM ., DR BAEZA Consulting Unavailable KAFTAN, DR Isatu LUGO Primary Care Unavailable HAY ., DR BAEZA Admitting Unavailable HAY ., DR BAEZA Attending Unavailable SALMA AMEZQUITA Consulting Unavailable HIGHLANDER, SADE Kenny Consulting Unavailable HIGHLANDER, SADE Kenny Attending Unavailable HIGHLANDER, SADE Kenny Admitting Unavailable KAFTAN, DR Isatu LUGO Primary Care Unavailable HOLLINGSWORTHSHERLYN Consulting Unavailable HIGHLANDER, SADE Kenny Attending Unavailable [...] BAEZA Attending Unavailable HAY ., DR BAEZA Admhugh Unavailable HIGHLANDER, SADE Kenny Attending Unavailable HIGHLANDER, [...] TANI ., CHASITY Consulting Unavailable LORRI TRIPLETT Consulting Unavailable DALIA, DR Isatu LUGO Primary Care Unavailable ELIAS ., DR ELDER Rios Admitting Unavailable ELIAS ., DR ELDER Rios Attending Unavailable ELIAS ., DR ELDER Rios Consulting Unavailable WEST, DR NICKI Gale Consulting Unavailable SADE WILDE Consulting Unavailable EDUARDO ., NANCY LAMA Consulting Unavailable GEMBUSDAWNA Consulting Unavailable HIGHLANDER, SADE Kenny Consulting Unavailable CHANI, SADE Kenny [...] Unavailable NIECY DURON Consulting Unavailable DO [facility] Emergency Provider Unavailable Unavailable Unavailable Primary Care [...] Gómez Jr., DO, George Robert [facility] jose eduardo PAULINE CHRISTENSEN Attending Unavailable ELICEO GÓMEZ JR Referring Unavailable ELICEO GÓMEZ JR Primary Care Unavailable Dalia Morales DO, George R Primary Care Provider DO Shannon Gómez Primary Care Provider DO Eagle Vazquez Attending Provider Eagle Vazquez Admitting Unavailable Eagle Vazquez Attending Unavailable Shannon Gómez Primary Care Unavailable Niecy Duron Admitting Unavailable Niecy Duron Attending Unavailable Shannon Gómez Primary Care Unavailable Anibal Valle Attending Unavailable Shannon Gómez Primary Care Unavailable Anibal Valle Admitting Unavailable RAJIV WILKINSON Attending Unavailable KAFTAN , ELICEO Braden Primary Care Unavailable WERNING, CULLEN W Referring Unavailable KAFTAN JR, ELICEO Braden Primary Care Unavailable WERNING, CULLEN W Attending Unavailable WERNING, CULLEN W Referring Unavailable KAFTAN JR, ELICEO Braden Primary Care Unavailable WERNING, CULLEN W Attending Unavailable KAFTAN JR, ELICEO R Referring Unavailable KAFTAN JR, ELICEO Braden Primary Care Unavailable WERNING, CULLEN W Admitting Unavailable WERNING, CULLEN W Attending Unavailable WERNING, CULLEN W Referring Unavailable DALIA JENKINS, ELICEO Braden Primary Care Unavailable PAM WANG Referring Unavailable ELICEO GÓMEZ JR Primary Care Unavail able Dalia Morales DO, George Robert Primary Care Provi jose eduardo ELICEO GÓMEZ JR Primary Care Unavail able PAM WANG Admitting Unavailable PAM WANG Attending Unavailable PAM WANG Referring Unavailable ELICEO GÓMEZ JR Primary Care Unavail able JAIRON LAI Attending Unavailable PAM WANG Attending Unavailable ELICEO GÓMEZ JR PARISH Primary Care Unavail able ELICEO GÓMEZ JR PARISH Primary Care Unavail able NELSY CHÁVEZ Attending Unavailable FLOWER LOPEZ Attending Unavailable ELICEO GÓMEZ JR Primary Care Unavail able ELICEO GÓMEZ JR PARISH Primary Care Unavail able ELICEO GÓMEZ JR PARISH Primary Care Unavail able ELICEO GÓMEZ JR Primary Care Unavail able PAM WANG Attending Unavailable ELICEO GÓMEZ JR Primary Care Unavail able PAM WANG Attending Unavailable PAM WANG Referring Unavailable ELICEO GÓMEZ JR Primary Care Unavail able DORIS ARIAS Attending Unavailable Brandyn BENSON, Andrius Kaelyn Attending Unavailable Brandyn BENSON, Andrius Kaelyn Attending Unavailable Brandyn BENSON, Andrius Vytnellie Attending Unavailable Brandyn BENSON, Andrius Vytnellie Attending Unavailable Brandyn BENSON, Andrius Vytnellie Attending Unavailable Brandyn BENSON, Andrius Valfonzo Attending Unavailable Shannon Gómez DO Primary Care Provider [phone] ELICEO GÓMEZ Attending Unavailable EAGLE VAZQUEZ Attending Unavailable KAFTAN, ELICEO Braden Attending Unavailable DIPTI ACEVEDO Attending Unavailable LAFFAEAGLE Lynn Attending Unavailable KAFTAN, ELICEO R Referring Unavailable KAFTAN, ELICEO R Attending Unavailable KAFTAN, ELICEO R Referring Unavailable KAFTAN, ELICEO R Attending Unavailable KAFTAN, ELICEO R Referring Unavailable LAFFAY, EAGLE Chand Attending Unavailable KAFTAN, ELICEO R Referring Unavailable LUBY, RON Rivera Attending Unavailable KAFTAN, ELICEO R Referring Unavailable LUBY, RON Rivera Attending Unavailable JUAN, JES Attending Unavailable SIDNEY AMEZQUITA Attending Unavailable KAFTAN, ELICEO R Referring Unavailable LAFFAY, EAGLE Chand Referring Unavailable LUBY, RON Rivera Referring Unavailable LAY, SIOMARA Attending Unavailable ENIX, DEB Referring Unavailable ANDREW, GIANA Attending Unavailable ANDREW, GIANA Attending Unavailable KOBEISSY, MATTEO Attending Unavailable LAYSIOMARA Referring Unavailable CHRISTENSEN, PAULINE Attending Unavailable CHRISTENSEN, PAULINE Attending Unavailable LUCÍA, RADHA Attending Unavailable CASTREJON, RADHA Attending Unavailable ANDREW, GIANA Attending Unavailable Shannon GÓMEZ Primary Care Unavailable MILAGROS FRANCO Attending Unavailab PADMAJA Lozada Referring Unavailable Shannon GÓMEZ Referring Unavailable RADHA CARDENAS Attending Unavailable Shannon GÓMEZ Primary Care Unavailable RADHA CARDENAS Attending Unavailable Shannon GÓMEZ Primary Care Unavailable KAFTANShannon Referring Unavailable RADHA CARDENAS Attending Unavailable Shannon GÓMEZ Primary Care Unavailable Shannon GÓMEZ Referring Unavailable SELF, SELF Referring Unavailable Shannon GÓMEZ Primary Care Unavailable Allergies Allergy Classification Reported Allergen(s) Allergy Type Date of Onset Reaction(s) Facility risperiDONE (1 source) risperiDONE Drug Allergy 9 [facility] (20 sources) risperiDONE; Translations: [RisperDAL TABS] Drug Allergy 0 Intolerance, Other (See Comments) [facility] (1 source) oxyCODONE Drug Allergy [facility] Repository (1 source) risperiDONE Drug Allergy [facility] (13 sources) POISON BRENDA EXTRACT; Translations: [POISON BRENDA EXTRACT] Drug Allergy 3 Rash [facility] (1 source) risperiDONE Drug Allergy 3 [facility] Repository (1 source) POISON BRENDA; Translations: [POISON BRENDA] Propensity to adverse reactions to drug (disorder) 2 [facility] Repository Medications Current Medications Medication [...] on above: Take 2 tablets by mo [facility] every 6 hours as needed for pain. Take 2 tablets by mo [facility] every 6 hours as needed for pain for up to 7 days. acetaminophen 300 mg / codeine phosphate 30 mg oral tablet (7 sources) Opioid Agonist Start: 01-24-2024 take 1 tablet by mouth three times daily acetaminophen-co deine (TYLENOL-COD #3) 300-30 mg per tablet Take 1 tablet by mouth three times a day. 0 01/24/2024 Active Comment on above: Take 1 tablet by [facility] three times a day. acetaminophen 325 mg / oxyCODONE hydrochloride 5 [...] 1 tablet by mouth every twelve hours [id number] 200 actuat albuterol 0.09 mg/actuat metered dose [...] mg oral tablet (2 sources) Bisphosphonate Start: 06-05-20 23 take 1 tablet by mouth every week Alendronate (Fosamax) 70 mg Tablet Active 70 MG PO every week June 04, 2023 11:00pm ARIPiprazole 300 mg extended release prefilled syringe (20 sources) Atypical Antipsychotic Start: 02-26-20 24 Abilify Maintena 300 MG Prefilled Syringe IM injection inject INTRAMUSCULARLY ONCE A MONTH (BRING TO OFFICE FOR PROVIDER TO ADMINISTER) 02/26/2024 Active Start: 09-27-2021 take 1 tablet by yancy th once daily ARIPiprazole (ABILIFY) 30 mg tablet [...] 07-07-2023 take 1 tablet by mouth once daily at dinner Atenolol 25 MG tablet Take 1 tablet by mouth Daily (with dinner). 07/07/2023 Active Start: 02-18-2020 take 25 mg by mouth once daily Atenolol Active 25 MG PO Daily February 17, 2020 11:00pm Start: 02-18-2020 End: 11-17-2022 take 1 tablet by mouth once daily Atenolol Active 1 TA B PO Daily February 18, 2020 12:00am Comment on above: Take 50 mg by mouth once daily. [facility] celecoxib 200 mg oral capsule (14 sources) Nonsteroidal Anti-inflammatory Drug Start: 01-07-2024 take 1 capsule by mouth twice daily celecoxib (CELEBREX) 200 mg capsule take 1 capsule by mouth twice a day if needed 0 01/07/2024 Active Start: 06-18-2019 End: 02-18-2020 take 1 tablet by mouth once daily Celecoxib Discontinued 1 TAB PO Daily June 17, 2019 11:00pm February 18, 2020 9:25am take 1 capsule by mo [facility] in the morning, then take 1 capsule by mouth at bedtime celecoxib (CeleBREX) 200 mg capsule Take 1 capsule (200 mg total) by mouth in the morning and 1 capsule (200 mg total) before bedtime. 0 Active Comment on above: take 1 capsule by mo [facility] twice a day if needed cholecalciferol 0.125 mg oral tablet (20 sources) Vitamin D Start: 03-11-2024 take 1 tablet by mouth once daily Vitamin D3 125 MCG (5000 UT) per tablet Take 1 tablet by mouth daily. 90 tablet 3 03/11/2024 Active Start: 05-12-2023 take 1 capsule by mo [facility] once daily Cholecalciferol (Vitamin D3) (Vitamin D3) [...] by mouth once daily. 168 hr cloNIDine 0.43824 mg/hr transdermal system (3 sources) Central alpha-2 Adrenergic Agonist Start: cloNIDine (CATAPRES-TTS) 0.1 mg/[address] 1 patch on the skin once a week. New patch on Monday 0 09/27/2023 Active daridorexant (QUVIVIQ) 50 mg tablet (7 sources) daridorexant (QUVIVIQ) 50 mg tablet Take by mouth as directed. 0 Active Comment on above: Take by mouth as dir ected. daridorexant 50 mg tablet (4 sources) take [...] 11:00pm Start: 06-05-20[address] [facility] once daily Dexlansoprazole (Dexilant) 60 mg Capsule,Biphase [...] MG SUBCUT Daily June 04, 2023 11:00pm estradiol 0.1 mg/ml vaginal cream (8 sources) Estrogen Start: 03-14-2024 estradiol (ESTRACE) 0.01 % (0.1 mg/gram) vaginal cream Indications: Vaginal burning Use 1 gram vaginally twice per week 42.5 g 3 03/14/2024 Active Start: 02-27-2024 End: 03-14-2024 estradiol (ESTRACE) 0.01 % ( 0.1 mg/gram) vaginal cream Use 1 gram vaginally nightly x 2 weeks then twice per weel 42.5 g 3 02/27/2024 03/14/2024 Discontinued Start: 06-19-2019 End: 02-18-2020 take 1 tablet by mouth once daily Estradiol Discontinued 1 TAB PO Daily June 18, 2019 11:00pm February 18, 2020 9:25am eszopiclone 3 mg oral tablet (12 sources) [...] Famotidine (PF) (PEPCID) inj ection 20 mg ferrous sulfate 325 mg oral tablet (1 source) Start: 03-11-2024 take 1 tablet by mouth every other day ferrous sulfate 325 (65 Fe) MG tablet Take 1 tablet by mouth every other day. 50 tablet 3 03/11/2024 Active 30 actuat fluticasone furoate 0.1 mg/actuat / umeclidinium 0.0625 mg/actuat / vilanterol 0.025 mg/actuat dry powder inhaler (20 sources) Anticholinergic , Corticosteroid, beta2-Adrenergi c Agonist Start: 07-20-2023 Trelegy Ellipta 100-62.5-25 MCG/ACT Aerosol Powder, breath activated inhaler Inhalation for 30 Days 07/20/2023 Active Start: 07-20-2023 take 1 puff(s) by mo uth once daily TRELEGY ELLIPTA 100-62.5-25 MCG/ACT AEPB Take 1 puff by mouth. Inhale once daily 0 07/20/2023 Active Start: 05-31-2022 take 1 puff(s) by in halation in the morning igcnxxkgijy-rxomvynes-omjwllfr (TRELEGY ELLIPTA) 100-62.5-25 mcg blister with device Indications: Asthma, unspecified asthma severity, unspecified whether complicated, unspecified whether persistent Inhale 1 puff in the morning. 60 each 5 05/31/2022 Active take 1 puff(s) by in halation once daily uusyzfxvvln-krmmkqnuz-xgtvqako (TRELEGY ELLIPTA) 100-62.5-25 mcg Inhale 1 Puff as instructed once daily. 0 Active take 1 puff(s) by in halation once daily Trelegy Ellipta 100-62.5-25 MCG/INH 1 puff Inhalation Once a day Not-Taking Comment on above: Inhale 1 Puff as ins tructed once daily. 1.5 ml fremanezumab-vfrm 150 mg/ml auto-injector (20 sources) Start: 07-19-2023 Ajovy 225 MG/1.5ML Solution Auto-injector inject 1 AND 1/2 milliliters subcutaneously every 28 DAYS 07/19/2023 Active Start: 06-05-2023 Fremanezumab-V frm (Ajovy Autoinjector) 225 mg/1.5 mL auto-injector Active 225 MG SUBCUT every month June 04, 2023 11:00pm Comment on above: inject 1 AND 1/2 mil liliters subcutaneously every 28 DAYS ibuprofen 600 mg oral tablet (4 sources) Nonsteroidal Anti-inflammatory Drug Start: 4 End: take 1 tablet by mouth every six [...] needed for pain. Take 1 tablet by [facility] every 6 hours as needed for pain for up to 7 days. inulin 200 mg / lactobacillus rhamnosus gg [id number] unt oral capsule (1 source) Start: End: take 1 capsule by mouth once daily lactobacillus rhamnosus (CULTURELLE) 10 billion cell -200 mg capsule Take 1 capsule by mouth once daily. 30 capsule 0 06/07/2022 07/07/2022 Active Comment on above: Take [address] [facility] once daily. iv contrast (will be [...] 15 mg Jan, 60 mg lisdexamfetamine dimesylate 50 mg oral capsule (17 sources) Central Nervous System Stimulant Start: 01-22-2024 Vyvanse 50 MG capsule Take 70 mg by mouth Daily (with dinner). 01/22/2024 Active Start: 01-22-2024 take 1 capsule by mouth once V YVANSE 50 mg capsule Take 1 capsule by [...] on above: Take 1 capsule by mo [facility] every afternoon. LORazepam 1 mg oral tablet (13 sources) Benzodiazepine Start: take 1 tablet by mouth once daily for anxiety LORazepam (ATIVAN) 1 MG tablet take 1 tablet by mouth once daily if needed for anxiety 0 07/19/2023 Active Start: 06-05-2023 take 1 mg by mouth twice daily Lorazepam Active 1 MG PO Twice daily June 04, 2023 11:00pm [facility]-four hours LORazepam 0.5 MG 1 tablet at bedtime as needed Orally Once a day Active omeprazole 40 mg delayed release oral capsule (19 sources) Proton Pump Inhibitor Start: 03-06-2024 take 1 capsule by mouth once daily omeprazole [address] capsule Indications: Cass grade D esophagitis Take 1 capsule by mouth daily. 90 capsule 2 03/06/2024 Active Start: 09-13-2017 End: 06-05-2023 take 40 mg by mouth twice daily Omeprazole Discontinued 40 MG PO Twice daily September 13, 2017 12:00am June 05, 2023 9:13am Omeprazole Not-T aking ondansetron 4 mg disintegrating oral tablet (20 [...] 1 tablet by mouth every twelve hours Quviviq 50 MG tablet (1 source) take 1 tablet by mouth once daily Quviviq 50 MG tablet Take 50 mg by mouth Every night. Active ramelteon 8 mg oral tablet (16 sources) [...] Dihydrofolate Reductase Inhibitor Antibacterial, Sulfonamide Antimicrobial Start: 4 End: 4 take 1 tablet by mouth twice daily [...] Start: 03-04-2022 take 3 tablets by mo ut once daily at bedtime traZODone (DESYREL) 50 [...] 17, 2020 11:00pm June 05, 2023 9:13am atorvastatin 20 mg oral tablet (20 sources) HMG-CoA Reductase Inhibitor Start: 03-10-2022 End: 01-25-2024 take 1 tablet by mouth once daily atorvastatin (LIPITOR) 20 mg tablet Take 20 mg by mouth once daily. 0 03/10/2022 01/25/2024 Discontinued (Course of therapy completed) Comment on above: Take 20 mg by mouth once daily. betamethasone 0.5 mg/ml topical cream (2 sources) Corticosteroid End: 12-20-2023 betamethasone dipropionate 0.05 % cream Apply 1 Application topically in the morning and 1 Application before bedtime. 0 12/20/2023 Discontinued (Therapy completed) brexpiprazole 3 mg oral tablet (5 sources) Atypical Antipsychotic Start: 02-18-2020 End: 06-05-2023 take 1 tablet by mouth once daily Brexpiprazole (Rexulti) 3 mg Tablet Discontinued 3 MG PO Daily February 17, 2020 11:00pm June 05, 2023 9:13am calcium chloride 0.0014 meq/ml / potassium chloride 0.004 meq/ml / sodium chloride 0.103 meq/ml / sodium lactate 0.028 meq/ml injectable solution (1 source) Start: 04-12-2024 End: 04-13-2024 Intravenous, at 20 mL/hr, CONTINUOUS, Starting on Mon04/12/24 at 1200, Until 04/13/24 at 0245, Pre-op/Pre-Proc 12 hr carBAMazepine 400 mg extended release [...] 16 Rocephin 500 mg Jul, 500 mg cephalexin 500 mg oral capsule (5 sources) Cephalosporin Antibacterial Start: 09-20-20 17 End: 10-01-20 18 take 1 capsule by mouth every eight hours Cephalexin (Keflex) 500 mg capsule Discontinued 500 MG PO Q8H 26 05September 20, 2017 12:00am October 01, 2018 9:40am cetirizine hydrochloride 5 mg oral tablet (6 sources) Histamine-1 Receptor Antagonist Start: 10-15-20 18 End: 12-19-19 19 Cetirizine Discontinued 1 TAB PO As Directed October 15, 2018 12:00am December 19, 2018 12:13pm take 1 tablet by mouth once arleen y Cetirizine 10 MG tablet Take 1 tablet by mouth daily. Active clonazePAM 0.5 mg oral tablet (20 sources) Benzodiazepine take 1 tablet by yancy th every twenty-four hours KlonoPIN 0.5 MG 1 [...] therapy completed) take 1 tablet by yancy twice daily as needed Cyclobenzaprine HCl 10 MG 1 tablet as needed Orally up to twice daily as needed for 30 day(s) Active Comment on above: Take by mouth three times daily. dexlansoprazole 60 mg delayed release oral capsule (20 sources) Proton Pump Inhibitor Start: 2020 End: 2023 take 1 capsule by mouth before breakfast Dexlansoprazole 60 mg CpDM Indications: Gastroesophageal reflux disease, unspecified whether esophagitis present take 1 capsule by mouth before breakfast 30 capsule 5 04/11/2023 02/27/2024 Discontinued Comment on above: take [address] [facility] every morning BEFORE BREAKFAST take 1 capsule by mo [facility] before breakfast docusate sodium 50 mg / sennosides, longterm 8.6 mg oral tablet (5 sources) Start: 2016 End: 2017 take 2 tablets by mouth twice daily Sennosides-Docusate Sodium (Dok Plus) 8.6-50 mg Tablet Discontinued 2 TAB PO Twice daily 40 September 20, 2017 12:00am October 01, 2018 9:42am 24 hr fexofenadine hydrochloride 180 mg / [...] Fluticasone Propionate (Flonase Allergy Relief) 50 mcg/actuation Wiggins,Suspension Discontinued 2 SPRAY INTRANASAL Daily October 15, 2018 12:00am June 18, 2019 2:04pm Comment on above: Use 1 Wiggins in each nostril once daily. Fluticasone Propion-Salmeterol [...] 15, 2018 12:00am June 18, 2019 2:04pm gabapentin 100 mg oral capsule (3 sources) Anti-epileptic Agent Start: 01-27-2024 End: 02-27-2024 take 2 capsules by mouth three times daily as needed gabapentin (NEURONTIN) 100 mg capsule Indications: Post-operative state Take 2 capsules by mouth three times a day as needed for up to 10 days. 30 capsule 0 01/27/2024 02/27/2024 Discontinued Comment on above: Take 2 capsules by m out three times a day as needed for up to 10 days. 1 ml galcanezumab-gnlm 120 mg/ml prefilled syringe (20 sources) End: 01-25-2024 galcanezumab-gnlm (EMGALITY SYRINGE) 120 mg/mL syringe Inject subcutaneously once every month. Do not shake. 0 01/25/2024 Discontinued (Course of therapy completed) Comment on above: Inject subcutaneousl y once every month. Do not shake. hydrOXYzine hydrochloride 50 mg oral tablet (10 sources) Antihistamine Start: 02-18-2020 End: 06-05-2023 take 50 mg by mouth once daily at bedtime Hydroxyzine Hcl Discontinued 50 MG PO Daily at bedtime February 17, 2020 11:00pm June 05, 2023 9:13am Start: 12-19-2018 End: 06-18-2019 take 25 mg by mouth twice daily Hydroxyzine Hcl Discontinued 25 MG PO Twice daily December 19, 2018 12:00am June 18, 2019 2:04pm lactobacillus rhamnosus gg [id number] unt oral capsule (20 sources) Start: 06-09-2022 [...] Comment on above: Take [address] [facility] once daily. lamoTRIgine 200 mg oral [...] 19, 2018 12:14pm [facility] lamoTRIgine 25 MG tablet Take 1 tablet by mouth daily. Active take 1 tablet by yancy once daily lamoTRIgine dispersible/chewable (LAMICTAL) 25 mg tablet Take 25 mg by mouth once daily. 0 Active take [address] [facility] in the morning lamoTRIgine (LaMICtal) 25 mg [...] Comment on above: Take [address] [facility] as directed. Take 2 tablet at [...] Comment on above: Take [address] [facility] twice daily. nystatin [id number] unt/ml topical cream (20 sources) Polyene Antifungal Start: End: nystatin (MYCOSTATIN) cream Indications: Yeast infection of the skin Apply 1 application to affected area twice daily. 30 g 0 02/08/2022 11/17/2022 Discontinued Start: 11-29-2020 take 4 mL by mouth four times daily Start: 11-29-2020 Comment on above: Apply 1 application to affected area twice daily. 24 hr oxybutynin chloride 10 mg extended release oral tablet (5 sources) Cholinergic Muscarinic Antagonist Start: 10-01-20 18 End: 06-19-20 19 take 1 tablet by mouth once daily Oxybutynin Chloride (Ditropan Xl) 10 mg Tablet Extended Release 24hr Discontinued 10 MG PO Daily October 01, 2018 12:00am June 19, 2019 12:23pm phenazopyridine hydrochloride 200 mg oral tablet (5 sources) Start: 02-18-20 End: 06-05-20 23 take 1 tablet by mouth every eight hours Phenazopyridine (Pyridium) 200 mg tablet Discontinued 200 MG PO Q8H 6 February 17, 2020 11:00pm June 05, 2023 9:13am polyethylene glycol 3350 24857 mg powder for oral solution (3 sources) Osmotic Laxative Start: 12-27-19 End: 02-09-20 polyethylene glycol 3350 (MIRALAX) 17 gram/dose powder [...] 150 mg oral capsule (20 sources) Start: 07-01-20 End: 02-18-20 take 1 tablet by mouth [...] 01, 2018 12:00am October 15, 2018 2:24pm take 2 capsules by m out three times daily pregabalin 25 MG capsule Take 2 capsules by mouth 3 times daily. Active prucalopride 2 mg oral tablet (20 sources) [...] oral capsule (3 sources) Start: 12-27-2021 End: 04-05-2022 psyllium Husk (METAMUCIL) 0.52 gram capsule Take 1 capsule by mouth as directed. As needed for constipation 0 12/27/2021 02/08/2022 Discontinued (Course of therapy completed) Comment on above: Take 1 capsule by mo [facility] as directed. As needed for constipation QUEtiapine [...] Comment on above: Take [address] [facility] three times daily as needed. simethicone in sterile water 40 mg/1000 mL irrigation 1 Application (1 source) Start: 04-12-2024 End: 04-12-2024 1 Application, Irrigation, ADMINISTER DIRECTED, Starting on Mon04/12/24 at 1210, Until Mon04/12/24 at 1409, Other, For gastrointestinal irrigation, Intra-op/Intra-Proc 50 ml sodium chloride 9 mg/ml injection [...] Comment on above: [facility] 8 hours as needed. Trelegy [...] on above: Take 1,000 mcg by mo ut once daily. vortioxetine 10 mg oral tablet [...] unspecified] Onset: 4 01-22-2024 Episodic Anxiety disorders (5 sources) Anxiety; Translations: [Anxiety state, unspecified] Onset: 3 Chronic Asthma (20 sources) Asthma; Translations: [Unspecified [...] disease without esophagitis] Onset: 1 10-15-2021 Chronic Esophageal disorders (1 source) Esophagitis; Translations: [Cass grade D esophagitis] 04-12-2024 Episodic Essential hypertension (20 sources) Hypertensive disorder; Translations: [...] I disorder; Translations: [Bipolar disorder, unspecified] Onset: 3 10-08-2020 Chronic Mycoses (2 sources) Candidiasis of skin; Translations: [Candidiasis of skin and nail] Episodic Osteoarthritis (20 sources) Arthritis of right acromioclavicular joint; Translations: [Primary osteoarthritis, right shoulder] Onset: 0 09-29-2020 Chronic Other acquired deformities (5 sources) Contracture, right ankle; Translations: [CONTRACTURE RIGHT ANKLE] Onset: 2 Chronic Other aftercare (1 source) Other buttermaker helper (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; 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] Onset: 3 Episodic Other connective tissue disease (5 sources) Pain in right foot; Translations: [PAIN IN RIGHT FOOT] Onset: 3 Episodic Other disorders of stomach and duodenum (20 sources) Gastroparesis syndrome; Translations: [Gastroparesis] Onset: 2 10-08-2020 Episodic Other disorders of stomach and duodenum (5 sources) Gastroparesis; Translations: [Gastroparesis] Onset: 0 Episodic Other disorders of stomach and duodenum (2 sources) Pylorospasm; Translations: [Pylorospasm, not elsewhere classified] Episodic Other disorders of stomach and duodenum (2 sources) Nonulcer dyspepsia; Translations: [Functional dyspepsia] Episodic Other female genital disorders (2 sources) Burning sensation of vagina; Translations: [Unspecified condition associated with female genital organs and menstrual cycle] 02-27-2024 Episodic Other gastrointestinal disorders (1 source) Ileostomy [...] Onset: 3 Resolved: 3 10-15-2021 Episodic Other liver diseases (2 sources) Fatty (change of) liver, not elsewhere classified; Translations: [Fatty (change of) liver, not elsewhere classified] Onset: 4 Chronic Other lower respiratory disease (20 sources) [...] less than 30; Translations: [Overweight] Episodic Other nutritional; endocrine; and metabolic disorders (1 source) Unintentional weight loss; Translations: [Abnormal weight loss] 04-12-2024 Episodic Other nutritional; endocrine; and metabolic disorders (2 sources) Abnormal weight loss; Translations: [Abnormal weight loss] Onset: 4 Episodic Other upper respiratory disease (19 sources) [...] [Acute upper respiratory infection, unspecified] 09-24-2017 Episodic Residual codes; unclassified (20 sources) Obstructive sleep apnea syndrome; Translations: [Obstructive sleep apnea (adult) (pediatric)] Onset: 3 Chronic Residual codes; unclassified (4 sources) Obstructive sleep apnea (adult) (pediatric); Translations: [Obstructive sleep apnea (adult) (pediatric)] Onset: 3 Chronic Residual codes; unclassified (4 sources) Postoperative state; Translations: [Other specified postprocedural states] Episodic Residual codes; unclassified (3 sources) Pain, unspecified Episodic Residual codes; unclassified (1 source) Acquired absence of both cervix and uterus; Translations: [ACQUIRED ABSENCE BOTH CERVIX AND UTERUS] Onset: 3 Episodic Residual codes; unclassified (1 source) Procedure not done; Translations: [Procedure and treatment not carried out for other reasons] 02-11-2024 Episodic Residual codes; unclassified (2 sources) Early satiety; Translations: [Early satiety] Onset: 4 04-12-2024 Episodic Residual codes; unclassified (1 source) Early satiety; Translations: [Early satiety] Onset: 4 Episodic Spondylosis; intervertebral disc disorders; other back [...] Audio/video Visit] Onset: 3 Unclassified (1 source) Other esophagitis without bleeding; Translations: [Other esophagitis without bleeding] Onset: 4 Urinary tract infections (4 sources) [...] [PLANTAR FASCIAL FIBROMATOSIS] Onset: 11-03-2022 Episodic Other gastrointestinal disorders (20 sources) Chronic [...] Translations: [LOW BACK PAIN, UNSPECIFIED] Onset: 02-19-2023 Unclassified (1 source) Other esophagitis without bleeding; Translations: [Other esophagitis without bleeding] Onset: 04-12-2024 Results Test Name Value Interpretation Reference Range Facility Documentationon 04-17-2024 Documentation [id number] Darrian Leal 1970 F Date Provider Department Center 04/17/2024 [id number] CASTREJON [facility] Gerardo Heal No family history on file [facility] Letter (Out)on 04-17-2024 Letter (Out) [id number] Darrian Leal 1970 F Date Provider Department Center 04/17/2024 [id number] COVARRUBIAS [facility] Gerardo [facility] No family history on file Normal [facility] DIAGNOSTIC UPPER ENDOSCOPYon 04-12-2024 [facility] Patient Name: Mary Leal Procedure Date: 04/12/2024 11:46 AM Date of : 1970 Admit Type: Outpatient Age: 53 Room: Endo 3 Gender: Female Note Status: Finalized Attending MD: Milagros Franco MD, PHD, [id number] Procedure: Upper GI endoscopy Attending Participation: I personally performed the entire procedure. Indications: Dysphagia, Heartburn Providers: Milagros Franco MD, PHD (Doctor), Stacie Johns RN (Nurse), Nawaf Pinzon, Industrial Illuminating Engineer (Industrial Illuminating Engineer), Everett Maria APRN-BECCA (Anesthesia Staff) Referring MD: Padmaja Ledezma MD, PHD Complications: No immediate complications. Medicines: Monitored Anesthesia Care Requesting Provider: Procedure: Pre-Anesthesia Assessment: - Prior [...] procedure were verified by the physician, the nurse, the topper press operator and the senior radiation protection technician in the procedure room. Mental Status Examination: alert and oriented. Airway [...] oxygen saturations were monitored continuously. The Endoscope ([id number]) was introduced through the mouth, and advanced to the second part of duodenum. The upper GI endoscopy was accomplished without difficulty. The patient tolerated the procedure well. Findings: The Z-line was irregular and was found 37 cm from the incisors. Biopsies were taken with a cold forceps for histology. Estimated blood loss was minimal. No evidence of Barretts esophagus endoscopically A TTS dilator was passed through the scope. Dilation with an 18-19-20 mm balloon dilator was performed to 20 mm. The dilation site was examined following endoscope reinsertion and showed no change. No gross lesions were noted in the entire esophagus. The gastroesophageal flap valve was visualized endoscopically and classified as Hill Grade I (prominent fold, tight to endoscope). Diffuse severe inflammation characterized by congestion (edema), erosions, erythema, linear erosions and shallow ulcerations was found in the gastric antrum. Biopsies were taken with a cold forceps for histology. Estimated blood loss was minimal. A TTS dilator was passed through the scope. Dilation with an 18-19-20 mm balloon dilator was performed to 20 mm. The dilation site was examined following endoscope reinsertion and showed no change. Estimated blood loss was minimal. The cardia and gastric fundus were normal on retroflexion. No gross lesions were noted in the entire examined (more content not included)... LAB, [facility] Radiology Study observation (narrative) [facility] SURG PATH REQUESTon 04-12-20 Case Report Normal [facility] Comment on above: Result Comment: Surg ical Pathology Report Case: [id number] Authorizing Provider: Milagros Franco MD, Collected: 04/12/2024 12:48 PM PhD Ordering Location: Endoscopy Outpatient Care Received: 04/12/2024 12:57 PM [place] Pathologist: Manish Tom MD Specimens: A) - TISSUE, gastric biopsy r/o HP evaluate for eosiniphils (large forceps) B) - TISSUE, GE Junction r/o Barrets (large forceps) Performed By: #### S URGP #### [facility] (DEFAULT) [address] [address] Clinical History Preop Diagnosis: Cass Grade D esophagitis [K20.80]. Early satiety [R68.81]. Unintentional weight loss [R63.4]. Gastroparesis [K31.84]. Medical History: Gastroesophageal reflux disease. Asthma. Benign essential hypertension. History of colectomy. Gastroparesis. Arthritis. Depression. Migraine. Constipation. [facility] Comment on above: Performed By: #### S URGP #### [facility] (DEFAULT) [address] [address] Gross Description [facility] Comment on above: Result Comment: The specimens are received in two properly labeled containers with the patient's name and accession number. A. The specimen is designated gastric biopsy r/o HP evaluate for eosinophils (large forceps) and consists of three fragments of jaimes-pink soft tissue, 0.4 cm to 0.5 cm in greatest dimension. TE 1 B. The specimen is designated GE junction r/o Vega's (large forceps) and consists of one soft jaimes portion of tissue which is 0.4 cm in greatest dimension. TE 1 Lab Use Only: JobID [id number] Praneether for this case was: Adriana Maradiaga Performed By: #### S URGP #### [facility] (DEFAULT) [address] [address] Microscopic Description A microscopic examination was performed. [facility] Comment on above: Performed By: #### S URGP #### [facility] (DEFAULT) [address] [address] Pathologic Diagnosis [facility] Comment on above: Result Comment: A. S tomach, biopsy: Active erosive esophagitis. No Helicobacter pylori organisms identified. B. GE junction, biopsy: Gastroesophageal squamocolumnar junctional mucosa with reflux pattern of injury. No Vega's specialized columnar epithelium (intestinal metaplasia) identified. Performed By: #### S URGP #### [facility] (DEFAULT) [address] [place] [address] Professional Interpretation Performed at: Normal [facility] Comment on above: Result Comment: [facility] For Immediate Release to Patient's [facility]? Yes [address] [place], [place] [address] Performed By: #### S URGP #### [facility] (DEFAULT) [address] [place] [address] 36on 04-10-2024 36 Left voicemail to [facility] to schedule Inspire follow up appointment following sleep study on 04/28. Offered 06/05 at 8:30 am or 4:00 pm OR 06/12 at 8:30 am. Normal [facility] Follow-Upon 04-03-2024 Follow-Up [id number] Darrian Leal 1970 F Date Provider Department Center 04/03/2024 PAULINE SANTACRUZ [facility] SLEEP [facility] No family history on file Level of Service:[id number] [place] OFFICE/OUTPATIENT ESTABLISHED MOD MDM 30 MIN Reason for Visit and Comments: Follow-up [009711] - Pt has the Inspire and is here for a follow up. She states it is unbelievable how well it is working for her. She is sleeping through the night, which she hasn't done for years. She is here for a few small adjustments, such as moving it from 6 hours of sleep a night to 8. Normal [facility] CBC AND ELECTRONIC DIFFon Basophils (Bld) [#/Vol] 0.04 10*3/uL Normal 0.00-0.15 [facility] Comment on above: Performed By: #### L [id number] #### [facility] (DEFAULT) [address] [address] Basophils/100 WBC (Bld) 0.6 % Normal [facility] Comment on above: Performed By: #### L AB980 #### [facility] (DEFAULT) [address] [address] DIFF STATUS Electronic Differential Normal [facility] Comment on above: Performed By: #### L [id number] #### [facility] (DEFAULT) [address] [place] [address] Eosinophils (Bld) [#/Vol] 0.08 10*3/uL Normal 0.00-0.42 [facility] Comment on above: Performed By: #### L AB980 #### [facility] (DEFAULT) [address] [place] [address] Eosinophils/100 WBC (Bld) 1.2 % Normal [facility] Comment on above: Performed By: #### L AB980 #### [facility] (DEFAULT) [address] [address] Hematocrit (Bld) [Volume fraction] 40.1 % Normal 34.9-44.3 [facility] Comment on above: Performed By: #### L AB980 #### [facility] (DEFAULT) [address] [place] [address] Hemoglobin (Bld) [Mass/Vol] 12.6 g/dL Normal 11.4-15.2 [facility] Comment on above: Performed By: #### L AB980 #### [facility] (DEFAULT) [address] [address] Immature Grans % 0.5 % Normal [facility] Comment on above: Performed By: #### L AB980 #### [facility] (DEFAULT) [address] [address] Immature Grans Absolute < Normal <=0.08 [facility] Comment on above: Performed By: #### L [id number] #### [facility] (DEFAULT) [address] [address] Lymphocytes (Bld) [#/Vol] 2.05 10*3/uL Normal 1.16-3.51 [facility] Comment on above: Performed By: #### L AB980 #### [facility] (DEFAULT) [address] [place] [address] Lymphocytes/100 WBC (Bld) 31.6 % Normal [facility] Comment on above: Performed By: #### L AB980 #### [facility] (DEFAULT) [address] [address] MCV (RBC) [Entitic vol] 86.6 fL Normal 79.6-97.7 [facility] Comment on above: Performed By: #### L AB980 #### [facility] (DEFAULT) [address] [address] Mean Cell Hgb 27.2 pg Normal 25.9-33.9 [facility] Comment on above: Performed By: #### L AB980 #### [facility] (DEFAULT) [address] [address] Mean Cell Hgb Conc 31.4 g/dL Normal 31.4-35.9 [facility] Comment on above: Performed By: #### L AB980 #### [facility] (DEFAULT) [address] [address] Monocytes (Bld) [#/Vol] 0.47 10*3/uL Normal 0.22-0.87 [facility] Comment on above: Performed By: #### L AB980 #### [facility] (DEFAULT) [address] [address] Monocytes/100 WBC (Bld) 7.3 % Normal [facility] Comment on above: Performed By: #### L AB980 #### [facility] (DEFAULT) [address] [address] Nucleated RBC 0.0 /100 WBC Normal <=0.2 [facility] [place] Comment on above: Performed By: #### L AB980 #### [facility] (DEFAULT) [address] [address] Platelet mean volume (Bld) [Entitic vol] 9.3 fL Normal 8.5-12.2 [facility] Comment on above: Performed By: #### L AB980 #### [facility] (DEFAULT) [address] [place] [address] Platelets (Bld) [#/Vol] 370 10*3/uL Normal 150-393 [facility] Comment on above: Performed By: #### L AB980 #### [facility] (DEFAULT) [address] [place] [address] RBC (Bld) [#/Vol] 4.63 10*6/uL Normal 3.91-5.04 [facility] Comment on above: Performed By: #### L AB980 #### [facility] (DEFAULT) [address] [place] [address] RBC Distribution 14.0 % Normal 10.8-14.9 [facility] Comment on above: Performed By: #### L AB980 #### [facility] (DEFAULT) [address] [place] [address] Segs + Bands Auto 58.8 % Normal [facility] Comment on above: Performed By: #### L AB980 #### [facility] (DEFAULT) [address] [place] [address] Segs + Bands,Absolute Auto 3.81 K/uL Normal 1.64-7.28 [facility] Comment on above: Performed By: #### L AB980 #### [facility] (DEFAULT) [address] [place] [address] WBC (Bld) [#/Vol] 6.48 10*3/uL Normal 3.99-11.19 [facility] Comment on above: Performed By: #### L AB980 #### [facility] (DEFAULT) [address] [place] [address] FERRITINon 03-06-2024 Ferritin [Mass/Vol] 9.1 ng/mL Normal 7.3-270.7 [facility] Comment on above: Performed By: #### T SHQR, FERIB #### [facility] (DEFAULT) [address] [place] [address] HEPATIC FUNCTION PANELon Albumin [Mass/Vol] 4.3 g/dL Normal 3.5-5.0 [facility] Comment on above: Performed By: #### H PAULO, IRBC #### [facility] (DEFAULT) [address] [place] [address] ALP [Catalytic activity/Vol] 87 U/L Normal 32-126 [facility] Comment on above: Performed By: #### H PAULO, IRBC #### [facility] (DEFAULT) [address] [place] [address] ALT [Catalytic activity/Vol] 28 U/L Normal 9-48 [facility] Comment on above: Performed By: #### H PAULO, IRBC #### [facility] (DEFAULT) [address] [place] [address] AST [Catalytic activity/Vol] 27 U/L Normal 10-39 [facility] Comment on above: Performed By: #### Sukumar BATES, IRBC #### [facility] (DEFAULT) [address] [place] [address] Bilirubin [Mass/Vol] 0.4 mg/dL Normal <1.5 [facility] Comment on above: Performed By: #### H PAULO, IRBC #### [facility] (DEFAULT) [address] [place] [address] Bilirubin.indirect [Mass/Vol] 0.1 mg/dL Normal <0.3 [facility] Comment on above: Performed By: #### H PAULO, IRBC #### [facility] (DEFAULT) [address] [place] [address] Protein [Mass/Vol] 6.9 g/dL Normal 6.4-8.3 [facility] Comment on above: Performed By: #### H PAULO, IRBC #### [facility] (DEFAULT) [address] [place] [address] IRON/IRON BINDING/TRANSFERRI Non 03-06-2024 Iron [Mass/Vol] 55 ug/dL Normal 40-174 [facility] [place] Comment on above: Performed By: #### H FP, IRBC #### [facility] (DEFAULT) [address] [address] Iron Saturation 13 % Low 20-55 [facility] [place] Comment on above: Performed By: #### H FP, IRBC #### [facility] (DEFAULT) [address] [address] Total Iron Binding Capacity 440 mcg/dL High 250-425 [facility] Comment on above: Performed By: #### H FP, IRBC #### [facility] (DEFAULT) [address] [address] Transferrin [Mass/Vol] 352 mg/dL Normal 200-400 [facility] Comment on above: Performed By: #### H FP, IRBC #### [facility] (DEFAULT) [address] [address] MOLECULAR STOOL PARASITE GUEVARA [place] 03-06-2024 Cryptosporidium Parvum/Hominis By Pcr Negative Normal Negative [facility] Comment on above: Order Comment: Colle ct sample in white top stool collection vial This test was performed using a real time PCR assay. Results should be interpreted in conjunction with clinical findings. A positive result does not necessarily indicate the presence of viable organisms. Positive results do not rule out co-infection with other organisms that are not detected by this assay. This test should not be used as a test of cure. Performed By: #### S CPBP #### [facility] (DEFAULT) [address] [address] Entamoeba Histolytica By Pcr Negative Normal Negative [facility] Comment on above: Order Comment: Colle ct sample in white top stool collection vial This test was performed using a real time PCR assay. Results should be interpreted in conjunction with clinical findings. A positive result does not necessarily indicate the presence of viable organisms. Positive results do not rule out co-infection with other organisms that are not detected by this assay. This test should not be used as a test of cure. Performed By: #### S CPBP #### [facility] (DEFAULT) [address] [address] Giardia Lamblia By Pcr Negative Normal Negative [facility] Comment on above: Order Comment: Colle ct sample in white top stool collection vial This test was performed using a real time PCR assay. Results should be interpreted in conjunction with clinical findings. A positive result does not necessarily indicate the presence of viable organisms. Positive results do not rule out co-infection with other organisms that are not detected by this assay. This test should not be used as a test of cure. Performed By: #### S CPBP #### [facility] (DEFAULT) [address] [place] [address] TSH W/FT4 REFLEXon TSH 1.986 uIU/mL Normal 0.550-4.780 [facility] Comment on above: Performed By: #### T SHQR, FERIB #### [facility] (DEFAULT) [address] [address] VITAMIN D (25-HYDROXY,TOTAL) on 03-06-2024 25-OH Vitamin D Total 22.2 ng/mL Low 30.0-100.0 [facility] Comment on above: Order Comment: Vitam in D values have been shown to be falsely decreased in lipemic samples and should be interpreted with caution. Result Comment: <10 Deficiency 10-29 Insufficiency 30-100 Optimal Level >100 Possible Toxicity Performed By: #### D 25OH #### [facility] (DEFAULT) [address] [address] BACTERIAL VAGINOSIS NAATon 0 02-27-2024 Interpretation and review of laboratory results Normal [facility] Lactobacillus crispatus+gasseri+riri senii + Gardnerella vaginalis + Atopobium vaginae rRNA JOSÉ MIGUEL+probe Ql (Vag fld) Negative Negative for bacterial vaginosis [facility] Lactobacillus crispatus+gasseri+riri senii + Gardnerella vaginalis + Atopobium vaginae rRNA JOSÉ MIGUEL+probe Ql (Vag fld) Negative Normal Negative for bacterial vaginosis [facility] Comment on above: Order Comment: Speci men Type: SWABOrdering Facility: [facility] Address: [address] [place] [address] Performed By: #### B VAMP, CVTV ####[facility] LABCLIA [id number] [place] [address] [place] BETY/TRICHOMONAS NAATon 0 02-27-2024 C. glabrata RNA JOSÉ MIGUEL+probe Ql (Vag fld) Negative Negative for Bety glabrata [facility] Bety sp DNA JOSÉ MIGUEL+probe Ql (Vag fld) Negative Negative for Bety species [facility] Interpretation and review of laboratory results Normal [facility] T. vaginalis DNA JOSÉ MIGUEL+probe Ql (Unsp spec) Negative Negative for Trichomonas vaginalis by amplification [facility] C. glabrata RNA JOSÉ MIGUEL+probe Ql (Vag fld) Negative Normal Negative for Bety glabrata [facility] Comment on above: Order Comment: Speci men Type: SWABOrdering Facility: [facility] Address: [address] [place] [address] Performed By: #### B VAMP, CVTV ####[facility] LABCLIA [id number] [place] [address] [place] Bety sp DNA JOSÉ MIGUEL+probe Ql (Vag fld) Negative Normal Negative for Bety species [facility] Comment on above: Order Comment: Speci men Type: SWABOrdering Facility: [facility] Address: [address] [place] [address] Performed By: #### B VAMP, CVTV ####[facility] LABCLIA [id number] [place] [address] [place] T. vaginalis DNA JOSÉ MIGUEL+probe Ql (Unsp spec) Negative Normal Negative for Trichomonas vaginalis by amplification [facility] Comment on above: Order Comment: Speci men Type: SWABOrdering Facility: [facility] Address: [address] [place] [address] Performed By: #### B VAMP, CVTV ####[facility] LABCLIA [id number] [place] [address] [place] CNOVon 02-27-2024 CNOV Office Visit (SHERON ) MARY LEAL ([id number]) 1970 F Date Time Provider Department 02/27/24 10:00 AM FLOWER LOPEZ During your visit today, we recorded the following information about you: Pulse Blood pressure Weight Height 62/minute 146/93 69.9 kg 1.626 m Flower Lopez APRN.NET WASHER 02/27/2024 10:40 AM Signed Female Pelvic Medicine AND Reconstructive Surgery Post-Op Visit Mary Leal is a 53 year old female who presents for a 6 Week post-op check s/p Interstim Stage 1 and 2 Intraoperative advanced programming, fluoroscopy. History since surgery: Urinary symptoms are better: She estimates that her symptoms are 65% improved with Interstim. Frequency improved. Now getting up only once at night to void. Daytime frequency much improved. Still has feeling of incomplete emptying/ rentention intermittently- somewhat improved. She has worked with [employer] rep re: interstim setting, now on program 5 at 2.0 and this is working well. First program felt like it was shocking her, that has resolved with program change. She states she had a yeast infection post op, took 3 Diflucan and Also tried OTC monistat ointment. Still having Burning after urination and after sex. Slight amt discharge She used vaginal estrogen suppositories in remote past, not currently. Post-op complications: yes, burning during urination and after intercourse Bleeding: no Pain: no If you had pain related to your prolapse before surgery, has your pain resolved? n/a Abnormal vaginal discharge: yes light yellow discharge Pathology: n/a PFDI-20 Do you: Usually experience pressure in the lower abdomen? No (0) Usually experience heaviness or dullness in the pelvic area? No (0) Usually have a bulge or something falling out that you can see or feel in your vaginal area? No (0) Ever have to push on the vagina or around the rectum to have or complete a bowel movement? No (0) Usually experience a feeling of incomplete bladder emptying? Yes, somewhat bothersome (2) Ever have to push up on a [...] your control if your stool is loose? Yes, somewhat bothersome (2) Usually lose gas from the rectum beyond your control? No (0) Usually have pain when you pass your stool? No (0) Experience a strong sense of urgency and have to machuca to the bathroom to have a bowel movement? Yes, somewhat bothersome (2) Does part of your bowel ever pass through the rectum and bulge outside during or after a bowel movement? Yes, not at all bothersome (1) Usually experience frequent urination? No (0) Usually experience urine leakage associated with a feeling of urgency, that is, a strong sensation of needing to go to the bathroom? No (0) Usually experience urine leakage related to coughing, sneezing or laughing? No (0) Usually experience small amounts of urine leakage (that is, drops)? No (0) Usually experience difficulty emptying your bladder? Yes, somewhat bothersome (2) Usually experience pain or discomfort in the lower abdomen or genital region? Yes, somewhat bothersome (2) Overall, how satisfied were you with your postoperative pain medication? Satisfied With regard to your expectations before surgery, did you have the amount of pain you expected, more pain, or less pain? About the amount of pain I expected Was the preoperative teaching you had about pain expectations helpful? Yes Were the discharge instructions you received about pain medications helpful? Yes Quality Analyst/Technical Writer offered:Patient declines OBJECTIVE: BP 146/93 Pulse 62 Ht 5' 4 (1.63m) Wt 154 lb 1.6 oz (69.9kg) BMI 26.44 kg/(m2). General: Well appearing, alert, in no acute distress, well-hydrated, well nourished. Abdomen: Abdomen soft, non-tender Buttocks: incisions are well healed, interstim site nontender Pelvic: Ext. Genitalia, No lesions or other abnormalities Vagina: WNL, Epithelium atrophic , and no abnormal discharge or bleeding Urethra: Normal Bimanual: No tenderness, No masses Rectovaginal: Deferred PVR: 5 ml via bladder scan done by [facility] URINE POC GLUCOSE UA (POCT) Negative 02/27/2024 BILIRUBIN UA (POCT) Negative 02/27/2024 KETONE UA (POCT) Negative 02/27/2024 SPECIFIC GRAVITY UA (POCT) >=1.030 02/27/2024 HEMOGLOBIN/BLOOD UA (POCT) Negative 02/27/2024 PH UA (POCT) 5.5 02/27/2024 PROTEIN UA (POCT) Negative 02/27/2024 UROBILINOGEN UA (POCT) 0.2 02/27/2024 NITRITE UA (POCT) Negative 02/27/2024 LEUKOCYTES UA (POCT) Negative 02/27/2024 COLOR UA (POCT) Yellow 02/27/2024 CLARITY UA (POCT) Clear 4 (more content not included)... Normal [facility] UA DIP, URINE (POC)on 2023 BILIRUBIN UA (POCT) Negative Negative [facility] CLARITY UA (POCT) Clear [facility] COLOR UA (POCT) Yellow [facility] GLUCOSE UA (POCT) Negative Negative mg/dL [facility] Hemoglobin Ql (U) Negative Negative [facility] KETONE UA (POCT) Negative Negative mg/dL [facility] LEUKOCYTES UA (POCT) Negative Negative [facility] NITRITE UA (POCT) Negative Negative [facility] PH UA (POCT) 5.5 4.5 - 8.0 [facility] Protein Ql (U) Negative Negative mg/dL [facility] SPECIFIC GRAVITY UA (POCT) >=1.030 1.005 - 1.030 [facility] UROBILINOGEN UA (POCT) 0.2 Normal E.U./dL [facility] Location:[facility], [address] [place] [address], [address] [place] [address] POINT OF CARE [facility] 29on 02-07-2024 29 Addended by: NATHANAEL MENDOZA on: 02/07/2024 12:01 PM Modules accepted: Orders [facility] Follow-Upon 02-07-2024 Follow-Up [id number] Darrian Leal 1970 F Date Provider Department Center 02/07/2024 PAULINE SANTACRUZ [facility] SLEEP [facility] No family history on file Level of Service:79216 [place] OFFICE/OUTPATIENT ESTABLISHED [facility] 40 MIN Reason for Visit and Comments: Follow-up [949480] - Pt is here to activate her Inspire PAP. [facility] CNPNon 01-27-2024 CNPN Telephone (GYNMN) MARY LEAL ([id number]) 1970 F Date Time Provider Department 01/27/24 RADHA DUNHAM GYNMN During your visit today, we recorded the following information about you: Radha Dunham MD 01/27/2024 10:54 AM Signed Grade Setter Resident Telephone Encounter 01/27/2024 10:44 AM Call [...] pain. Informed patient she can [facility] Monday. Will send telephone encounter to [...] Discussed with Dr. Mullins, Urogyn fellow physician fishery division chief. Radha Dunham MD Obstetrics and Gynecology, PGY1 [...] Department of Urogynecology and Pelvic Floor Disorders Kelli Adames 03/14/2024 3:14 PM Signed Received fax regarding letter from [employer] ([employer] stating that on 01/29/24 the patient reported that they felt a zapping sensation in their rectal nerve . Asking that provider answer questions listed on document. Document scanned into [employer]. Kelli Seth Sandra K, RN 03/15/2024 11:27 AM Signed Called pt. 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 - acetaminophen-codeine (TYLENOL-COD #3) 300-30 mg per tablet Take 1 tablet by mouth three times a day. - VYVANSE 50 mg capsule Take 70 mg by mouth every afternoon. - ARIPiprazole monohydrate (ABILIFY MAINTENA) 300 mg sers injection Inject 300 mg intramuscularly. - lamoTRIgine dispersible/chewable (LAMICTAL) 25 mg tablet Take 25 mg by mouth once daily. - atenolol (TENORMIN) 25 mg tablet Take 1 tablet by mouth every afternoon. - AJOVY AUTOINJECTOR 225 mg/1.5 mL auto-injector inject 1 AND 1/2 milliliters subcutaneously every 28 DAYS - rOPINIRole (REQUIP) 2 mg tablet Take 1 mg by mouth twice daily. Takes 1 mg in the AM and 2 mg PM - fluticasone-umeclidin- vilanter (TRELEGY ELLIPTA) 100-62.5-25 mcg Inhale 1 Puff [...] examination after colorectal surgery *01/18/2022 Chronic idiopathic cons (more content not included)... Normal [facility] ANES POSTPROC EVALon 024 ANES POSTPROC EVAL HNO ID: [id number] Author: BONI MURILLO MD Service: ? Author Type: Anesthesiologist Type: Anesthesia Postprocedure Evaluation Filed: 01/26/2024 09:51 Note Text: POST ANESTHESIA EVALUATION NOTE : 1970 Procedure Summary Date: 01/26/24 [address] Start: 727 Anesthesia Stop: 899 Procedures: [...] Vitals Vitals Value Taken Time BP 107/68 01/26/24 0930 Temp 36 ?C (96.8 ?F) 01/26/24 0930 Pulse 64 01/26/24 0930 Resp 16 01/26/24 0930 SpO2 100 % 01/26/24 0930 Post Anesthesia Patient Status Patient Evaluation: bedside. [...] January 26, 2024 TIME: 9:51 AM CSN: [id number] Normal [facility] ANES PRE-OPon 01-26-2024 ANES PRE-OP HNO ID: [id number] Author: BONI MURILLO MD Service: ? Author Type: Anesthesiologist Type: Anesthesia Preprocedure Evaluation Filed: 01/26/2024 07:07 Note Text: ANESTHESIOLOGY DAY OF SURGERY NOTE : 1970 Procedure Information Date/Time: 01/26/24 0730 Procedures: INSRT NSTIM GENERATOR BLADDER W/ POCKET CREATE AND CONNECT BTWN ELCTRD ARRAY AND PULSE GENERATOR OR RECVR (Back) IMPLANT STIMULATOR LEAD(S) BLADDER INCISIONAL APPROACH (Back) FLUOROSCOPIC GUIDANCE/LOCALIZATION OF NEEDLE/CATHETER TIP FOR DIAG OR THERAPUETIC SPINE/PARASPINOUS INJECTION PROCEDURES (Back) Location: MAIN OR / [facility]AVIL[facility] Surgeons: Pam Wang MD [...] (97.7 ?F) 01/26/24 0559 SpO2 99 % 01/26/2459 Facility-Administered Medications as of 01/26/2024 Medication Dose [...] the AM and 2 mg PM - fluticasone-umeclidin- vilanter (TRELEGY ELLIPTA) 100-62.5-25 mcg Inhale 1 Puff [...] by mouth two times a day. - sulfamethoxazole-trime thoprim (BACTRIM DS) 800-160 mg per tablet Take [...] January 26, 2024 TIME: 7:06 AM CSN: [id number] Normal [facility] BRIEF OP NOTon 01-26-2024 BRIEF OP NOT HNO ID: [id number] Author: SOFIYA MULLINS MD Service: Urogynecology Author Type: Fellow Type: Brief Op Note Filed: 01/26/2024 08:44 Note Text: BRIEF OPERATIVE / PROCEDURE NOTE LOG ID: [id number] Surgery/Procedure Date: 01/26/2024 Incision/Procedure Start Time: 7:54 AM Incision Close/Procedure End Time: 8:36 AM Surgeon(s)/Procedurali st(s) and Drilling Superintendent(s): Surgeon(s) and Role: * Pam Wang MD [...] Implant Name Type Inv. Item Serial No. Baker Bread Lot No. LRB No. Used Action LEAD INTRSTIM MRI 28CM - [id number] Lead LEAD INTRSTIM MRI 28CM [employer] [id number] Left 1 Implanted INTERSTIM X RECHARGE FREE NEUROSTIMULATOR - [id number] Stimulator INTERSTIM X RECHARGE FREE NEUROSTIMULATOR [id number] [employer] Left 1 Implanted Pre-Op/Pre-Procedure Diagnosis: urinary retention, urgency, frequency and nocturia Post-Op/Post-Procedure Diagnosis: same SIGNATURE: Sofiya Mullins MD DATE: January 26, 2024 PATIENT NAME: Mary Leal TIME: 8:42 AM PAGER/CONTACT #: Pager [phone] Normal [facility] HISTORY PHYSICALon HISTORY PHYSICAL HNO ID: [id number] Author: SOFIYA MULLINS MD Service: Urogynecology Author Type: Fellow Type: H&P Filed: 01/26/2024 06:59 Note Text: HISTORY AND PHYSICAL EXAMINATION SERVICE DATE: 01/26/2024 SERVICE TIME: 6:56 AM PRIMARY CARE PHYSICIAN: Eliceo Gómez DO, DO Subjective CHIEF COMPLAINT: urinary retention, [...] Disp: , Rfl: , 01/25/2024 at 2100 fluticasone-umeclidin- vilanter (TRELEGY ELLIPTA) 100-62.5-25 mcg, Inhale 1 Puff [...] VTE Prophylaxis/An (more content not included)... Normal [facility] NURSING PROGon 01-26-2024 NURSING PROG HNO ID: [id number] Author: DAI CAMPUZANO RN Service: Nursing Author Type: Registered Nurse Type: Nursing Progress Note Filed: 01/26/2024 09:51 Note Text: [id number] Paged PACU Resident M22-30 Elvis- Could you please place an order for a one time dose of [place]? [place] [phone] Paged PACU Resident M22-30 Elvis- Could you please place an order for a one time dose of her homegoing [place]? [place] [phone] Normal [facility] NURSING PROG HNO ID: [id number] Author: CATRACHO PIERRE RN Service: ? Author Type: Registered Nurse Type: Nursing Progress Note Filed: 01/26/2024 06:41 Note Text: Nursing Progress Note Topic of Note: Daily Note PATIENT NAME: Mary Leal Patient Location: Main - Periop OR/Main - Periop OR Room: Main - Periop OR ([id number]) PAGE SENT: Akiko Wang and Resident tonnage compilation clerk-Pt in [id number] Mary Leal will need informed consent and H AND P for surgery this morning. Thanks, Catracho [id number] This note was completed by: Catracho Pierre [facility] OPERATIVE NOon 01-26-2024 OPERATIVE NO HNO ID: [id number] Author: PAM WANG MD Service: Urogynecology Author Type: Physician Type: Operative Report Filed: 01/29/2024 10:50 Note Text: OPERATIVE/PROCEDURE REPORT LOG ID: [id number] Surgery/Procedure Date: 01/26/2024 Incision/Procedure Start Time: 7:54 AM Incision Close/Procedure End Time: 8:36 AM Surgeon(s)/Procedurali st(s) and Drilling Superintendent(s): Surgeon(s) and Role: * Pam Wang MD [...] Implant Name Type Inv. Item Serial No. Baker Bread Lot No. LRB No. Used Action LEAD INTRSTIM MRI 28CM - [id number] Lead LEAD INTRSTIM MRI 28CM [employer] [id number] Left 1 Implanted INTERSTIM X RECHARGE FREE NEUROSTIMULATOR - [id number] Stimulator INTERSTIM X RECHARGE FREE NEUROSTIMULATOR [id number] [employer] Left 1 Implanted Pre-Op/Pre-Procedure Diagnosis: [...] the S3 foramen until the marker was retirement through the bone. The sacral lead was [...] and impedances (more content not included)... Normal [facility] HISTORY PHYSICALon HISTORY PHYSICAL HNO ID: [id number] Author: MAX MARROQUIN PA-C Service: ? Author Type: Physician Drilling Superintendent Type: H&P Filed: 01/25/2024 09:25 Note Text: PREANESTHESIA CONSULT CLINIC TELEHEALTH VISIT SERVICE DATE: 01/25/2024 SERVICE TIME: 9:02 AM Patient has been identified by name and date of : Yes Reason for contact: PACC visit Accompanied by: Self This is a virtual visit using [employer] Video Visit. It required patient-provider interaction for the medical decision making as documented below. I have communicated my name and active licensure. The patient's identity and physical location were verified at the time of this visit. Either the patient or their legal credit and collections representative has been informed of the risks [...] using inspire to get activated 02/07/2024 ) [id number] Score: Age: <65 Sex: female CHF history: No Hypertension history: Yes Stroke/TIA/thromboembo lism history: No Vascular disease history: No Diabetes history: No [id number] Score: 2 ANESTHESIA FINDINGS: Intubation History: No [...] Cutler present: no Lip Bite Test: I Microretrognathia/Micr onagthia/Recessed Chin: No DENTAL Dental findings: teeth intact. [...] PAST SURGICAL HIST (more content not included)... [facility] 12-25-2023 [facility] Telephone (GYNMN) MARY LEAL ([id number]) 1970 F Date Time Provider Department 12/25/23 PAM WANG During your visit today, we recorded the following information about you: Conrad SteinbergDenisse 12/25/2023 2:54 PM Signed Reason for call: [...] distance health visit in this department: 10/25/2021 Nurse Coordinator, Nurse Next visit in this department: 01/25/2024 Stacie Gonzalez RN 12/25/2023 3:03 PM Signed See MC message A message has been [...] the AM and 2 mg PM - fluticasone-umeclidin- vilanter (TRELEGY ELLIPTA) 100-62.5-25 mcg Inhale 1 Puff [...] Status:Closed by STACIE GONZALEZ on 12/25/23 Normal [facility] BASIC METABOLIC PANLon 12-20 Anion gap [Moles/Vol] 6 mmol/L Normal 5-15 [facility] Comment on above: Performed By: #### B MP #### [facility] ([id number]) [address], [address] [place] [address] Calcium [Mass/Vol] 9.3 mg/dL Normal 8.5-10.5 [facility] Comment on above: Performed By: #### B MP #### [facility] ([id number]) [address], [address] [place] [address] Chloride [Moles/Vol] 105 mmol/L Normal 98-109 [facility] Comment on above: Performed By: #### B MP #### [facility] ([id number]) [address], [address] [place] [address] CO2 [Moles/Vol] 28 mmol/L Normal 22-32 [facility] Comment on above: Performed By: #### B MP #### [facility] ([id number]) [address], [address] [place] [address] Creatinine [Mass/Vol] 0.60 mg/dL Normal 0.40-1.00 [facility] Comment on above: Result Comment: METH OD TRACEABLE TO IDMS STANDARD Performed By: #### B MP #### [facility] ([id number]) [address], [address] [place] [address] eGFR (CKD-EPI) NON-RACE DEPENDENT >90 Normal >59 [facility] Comment on above: Result Comment: Reported eGFR is based on the CKD-EPI 2020 equation that does not use a race coefficient. Performed By: #### B MP #### [facility] ([id number]) [address], [address] [place] [address] Glucose [Mass/Vol] 85 mg/dL Normal 65-99 [facility] Comment on above: Performed By: #### B MP #### [facility] ([id number]) [address], [address] [place] [address] Potassium [Moles/Vol] 4.2 mmol/L Normal 3.5-5.0 [facility] Comment on above: Performed By: #### B MP #### [facility] ([id number]) [address], [address] [place] [address] Sodium [Moles/Vol] 139 mmol/L Normal 134-146 [facility] Comment on above: Performed By: #### B MP #### [facility] ([id number]) [address] [place] [address] Urea nitrogen [Mass/Vol] 14 mg/dL Normal 5-23 [facility] Comment on above: Performed By: #### B MP #### [facility] ([id number]) [address], [address] [place] [address] Basic Metabolic Panelon 12-07 Anion gap [Moles/Vol] 6 mmol/L 5 - 15 mmol/L [facility] Calcium [Mass/Vol] 9.3 mg/dL 8.5 - 10. 5 mg/dL [facility] Chloride [Moles/Vol] 105 mmol/L 98 - 10 9 mmol/L [facility] CO2 [Moles/Vol] 28 mmol/L 22 - 32 mmol/L [facility] Creatinine [Mass/Vol] 0.60 mg/dL 0.40 - 1.00 mg/dL [facility] Comment on above: METHOD TRACEABLE TO IDPA STANDARD eGFR (CKD-EPI)non-race dependent - PINF [facility] Comment on above: Reported eGFR is based on the CKD-EPI 2020 equation that does not use a race coefficient. Glucose [Mass/Vol] 85 mg/dL 65 - 99 mg/dL [facility] Potassium [Moles/Vol] 4.2 mmol/L 3.5 - 5.0 mmol/L [facility] Sodium [Moles/Vol] 139 mmol/L 134 - 146 mmol/L [facility] Urea nitrogen [Mass/Vol] 14 mg/dL 5 - 23 mg/dL [facility] 36on 12-05-2023 36 Scheduled Inspire activation appointment 02/06 at 9:15 am. [facility] CNPDianne 11-27-2023 CNPN Telephone (WCTRMN) ELVISMARY RUTLEDGE Zoya ([id number]) 1970 F Date Time Provider Department 11/27/23 PAM WANG TRMN During your visit today, we recorded the following information about you: Atilio Amber 11/27/2023 9:32 AM Signed Patient: Mary Leal : 1970 Provider: Pam Wang MD Caller Phone #: [phone] (home) [phone] (cell) Reason for call: boyfriend pulled out [...] PNE stimulator stopped connecting so Kim of [employer] ([employer] said to remove it. She removed the [...] urge [N39.41] Order(s):SURGICAL REQUEST - ELECTIVE (06/2020) [[id number]] Order #: [id number]: 1 Prescriptions as of 11/27/2023 - ARIPiprazole [...] the AM and 2 mg PM - fluticasone-umeclidin- vilanter (TRELEGY ELLIPTA) 100-62.5-25 mcg Inhale 1 Puff [...] Encounter Status:Closed by PAM WANG on 11/27/23 [facility] Hussain 11-25-2023 KWESIN Telephone (GYNMN) MARY LEAL ([id number]) 1970 F Date Time Provider Department 11/25/23 RADHA DUNHAM GYNMN During your visit today, we recorded the following information about you: Radha Dunham MD 11/25/2023 2:43 PM Signed Grade Setter Resident Telephone Encounter 11/25/2023 2:40 PM Call [...] adequately. Discussed with Dr. Mullins, Urogyn fellow fishery division chief. Radha Dunham MD Obstetrics and Gynecology, PGY1 Allergies As of Date: 11/25/2023 Noted Allergy Reaction RISPERIDONE 07/27/2021 5 - Intolerance Comments: Breast discharge POISON BRENDA EXTRACT 04/06/2023 2 - Rash Date Reviewed: 10/10/2023 Reviewed by: José Luis Thorpe, RN - Fully Assessed Reason for Visit: Patient Question [1598] Prescriptions as of 11/25/2023 - ARIPiprazole monohydrate [...] the AM and 2 mg PM - fluticasone-umeclidin- vilanter (TRELEGY ELLIPTA) 100-62.5-25 mcg Inhale 1 Puff [...] Status:Closed by RADHA DUNHAM on 11/25/23 Normal [facility] hepatobiliary w pharmon 0 11-23-2023 PR hepatobiliary w pharm [facility] [place] [address] Nuclear Medicine Report Signed Patient: Mary Leal MR#: [id number] : 1970 Acct:[id number] Age/Sex: 53 / F ADM Date: 11/23/23 Loc: PR Room: Type: [facility] Attending Dr: Eagle Vazquez DO Copies to: Quinotn Melendez Jr, DO Paul C Laffay, DO [...] Melendez Jr., D.O.11/23/2023 11:56 AM Dictation Location: [place] [address] Transcribed By: MARIO 11/23/23 2651 Dictated By: Quinton Melendez Jr, DO 11/23/23 1155 Signed By: 11/23/[address] [facility] CNOVon 11-21-2023 CNOV Office Visit (SHERON ) MARY LEAL ([id number]) 1970 F Date Time Provider Department 11/21/23 [...] Voiding dysfunction [N39.8] Order(s):UA DIP, URINE (POC) [[id number]] Order #: [id number]. #:[id number] [] ondansetron orally disintegrating 4 mg tab(s) [...] (GAS RE (more content not included)... Normal [facility] BI MAMMOGRAM SCREENING TOMOS YLETTY BILATERALon 10-31-2023 BI MAMMOGRAM SCREENING TOMOSYNTHESIS BILATERAL [...] IS VERY IMPORTANT TO YOUR HEALTH. THE [employer] GUIDELINES RECOMMEND THAT WOMEN 40 [...] DO Normal Not Available Documentationon 10-12-2023 Documentation [id number] Darrian Leal 1970 F Date Provider Department Center 10/12/2023 KarliGIANA MORALES [facility] Gerardo Heal No family history on file Normal [facility] CNOVon 10-10-2023 CNOV Office Visit (SHERON ) MARY LEAL ([id number]) 1970 F Date Time Provider Department 10/10/23 [...] PFSH obtained by others. Pam Wang MD Quality Analyst/Technical Writer offered: Patient declines. OBJECTIVE: BP 102/60 General: [...] would like to move forward with PNE. [employer] packet given to patient today to review. [...] which included preparing to see the patient, [id number] patient care, completing clinical (more content not included)... [facility] X[facility] CHEST 2 VIEWSon 3 XR CHEST 2 VIEWS FINDINGS: Comparison, June 09, 2021. Intervertebral disc space device again identified lower cervical spine. Cardiopericardial silhouette normal. Pulmonary vasculature normal. Lungs clear. IMPRESSION: Impression: No acute cardiopulmonary disease. ELECTRONICALLY SIGNED BY: Angel Strauss MD Normal Not Available Orders Onlyon 09-19-2023 Orders Only [id number] Darrian Leal 1970 F Date Provider Department Center 09/19/2023 Karli-ANDREW GIANA [facility] Gerardo Heal No family history on file Normal [facility] CNPNon 09-12-2023 CNPN Telephone (WHQ) MARY LEAL ([id number]) 1970 F Date Time Provider Department 09/12/23 PAM WANG [facility] During your visit today, we recorded the [...] which included preparing to see the patient, [id number] patient care, completing clinical documentation, obtaining and/or reviewing separately obtained history, counseling and educating the patient/family/caregiv er, ordering medications, tests, or procedures, and communicating with other HCPs (not separately reported). MD Mary Delcid states she had her procedure yesterday and the doctor mentioned she should have a Cystoscopy. She inquires what Dr. Wang recommends and next steps. States she will await to hear back regarding plan. Informed her message is being forwarded to Dr. Wang for review. Please review/advise Lex Vieyra, Pam Robles MD 09/12/2023 1:12 PM Signed OUTGOING TELEPHONE CALL Telephone call to discuss results UDS results Discussed that would recommend cystoscopy and then will review option of MUS sling incision versus PNE/Interstim. Office will call to schedule cystoscopy. Urogynecology [facility] Main provided: Pam aWng Staff Physician, Department of Urogynecology and Pelvic Floor Disorders Allergies As of Date: 09/12/2023 Noted Allergy Reaction RISPERIDONE 07/27/2021 5 - Intolerance Comments: Breast discharge POISON BRENDA EXTRACT 04/06/2023 2 - Rash Date Reviewed: 09/11/2023 Reviewed by: Jenifer Barnard RN - Fully Assessed Reason for Visit: Patient Update [1234] Primary Visit Diagnosis:Voiding dysfunction [N39.8] Other Visit Diagnosis:History of suburethral sling procedure [Z98.890] Order(s):CYSTOSCOPY [facility] [[id number]] Order #: [id number] Prescriptions as of 09/12/2023 - atenolol (TENORMIN) [...] Take 1,000 (more content not included)... Normal [facility] CNOVon 09-11-2023 CNOV Office Visit (UROSMN ) MARY LEAL ([id number]) 1970 F Date Time Provider Department 09/11/23 11:00 AM JAIRON LAI During your visit today, we recorded the [...] Jenifer Barry RN 09/11/2023 11:37 AM Signed [facility] UR[facility] LAB [...] allergy: No Females- Is patient : No Quality Analyst/Technical Writer offered:Patient declines B/O UA: YES DIP: UROFLOWMETRY [...] Jairon Lai MD 09/11/2023 1:18 PM Signed [facility] C[facility] FOR [...] Jairon Lai MD Referring Provider: PAM WANG [[id number]] Allergies As of Date: 09/11/2023 Noted Allergy [...] milliliters subcut (more content not included)... Normal [facility] Orders Onlyon 09-01-2023 Orders Only [id number] Darrian Leal en 1970 F Date Provider Department [place] 09/01/2023 [facility] Gerardo Heal No family history on file Normal [facility] Behavioral Health Telemedici neon 08-23-2023 Behavioral Health Telemedicine [id number] Mary Leal 1970 F Date Provider Department [place] 08/23/2023 [facility] Gerardo Heal No family history on file Level of Service:29056 [place] OFFICE/OUTPATIENT ESTABLISHED MOD MDM 30-39 MIN Normal [facility] Orders Onlyon 08-21-2023 Orders Only [id number] Darrian Leal en 1970 F Date Provider Department [place] 08/21/2023 [facility] family history on file Normal [facility] BASIC METABOLIC PANELon 10-0 Anion gap [Moles/Vol] 1 mmol/L Low 8-[address] [facility] Comment on above: Performed By: #### 4 [id number], [id number], [id number], [id number] #### [place] [address] Calcium [Mass/Vol] 9.2 mg/dL Normal 8.4-10.4 [facility] Comment on above: Performed By: #### 4 [id number], [id number], [id number], [id number] #### [place] [address] Chloride [Moles/Vol] 105 mmol/L Normal 96-109 [facility] [employer] [facility] Comment on above: Performed By: #### 4 [id number], [id number], [id number], [id number] #### [place] [address] [place] [address] [facility] CO2 [Moles/Vol] 32 mmol/L High 22-30 [place] [employer] [facility] Comment on above: Performed By: #### 4 [id number], [id number], [id number], [id number] #### [place] [address] [place] [address] Creatinine [Mass/Vol] 0.67 mg/dL Normal 0.52-1.04 [employer] Comment on above: Performed By: #### 4 [id number], [id number], [id number], [id number] #### [address] GLOMERULAR FILTRATION RATE ML/MIN/1.73 SQ M.PREDICTED >90.0 Normal >=60.0 [place] [employer] Comment on above: Result Comment: eGFR calculation [...] Kidney Int Suppl.2013;3:1-150 Performed By: #### 4 [id number], [id number], [id number], [id number] #### [place] [address] [place] [address] [place] Glucose [Mass/Vol] 104 mg/dL High 65-100 [facility] [employer] [facility] Comment on above: Performed By: #### 4 [id number], [id number], [id number], [id number] #### [place] [address] [place] [address] [facility] Potassium [Moles/Vol] 4.6 mmol/L Normal 3.6-5.1 [facility] Comment on above: Performed By: #### 4 [id number], [id number], [id number], [id number] #### [place] [address] Sodium [Moles/Vol] 138 mmol/L Normal 135-147 [facility] Comment on above: Performed By: #### 4 [id number], [id number], [id number], [id number] #### [place] [address] [place] [address] [facility] Urea nitrogen [Mass/Vol] 16 mg/dL Normal 8-26 [facility] Comment on above: Performed By: #### 4 [id number], [id number], [id number], [id number] #### [place] [address] Basic metabolic panel aka Ch em 8on 08-12-2023 Anion gap [Moles/Vol] 1 mmol/L Low 8 - 12 mmol/L [facility] Calcium [Mass/Vol] 9.2 mg/dL 8.4 - 10. 4 mg/dL [facility] Calcium hydrogen phosphate dihydrate crystals LM Ql (Urine sed) 16 mg/dL 8 - 26 mg/dL [facility] Chloride [Moles/Vol] 105 mmol/L 96 - 10 9 mmol/L [facility] CO2 (BldMV) [Moles/Vol] 32 mmol/L High 22 - 30 mmol/L [facility] Creatinine [Mass/Vol] 0.67 mg/dL 0.52 - 1.04 mg/dL [facility] GFR/1.73 sq M.predicted MDRD (S/P/Bld) [Vol rate/Area] - PINF [facility] Comment on above: eGFR calculation bas ed [...] 104 mg/dL High 65 - 100 mg/dL [facility] Interpretation and review of laboratory results Abnormal [facility] Potassium [Moles/Vol] 4.6 mmol/L 3.6 - 5.1 mmol/L [facility] Sodium [Moles/Vol] 138 mmol/L 135 - 147 mmol/L [facility] CBC AND DIFFERENTIALon 08-12 ABSOLUTE BASOPHIL 0.0 x10*3/uL Normal 0.0-0.1 [facility] Comment on above: Performed By: #### 4 [id number] #### [address] ABSOLUTE EOSINOPHIL 0.1 x10*3/uL Normal 0.1-0.[address] [facility] Comment on above: Performed By: #### 4 [id number] #### [address] ABSOLUTE IMMATURE GRANULOCYTES 0.0 x10*3/uL Normal 0.0-0.1 [facility] Comment on above: Performed By: #### 4 [id number] #### [address] ABSOLUTE LYMPH 1.6 x10*3/uL Normal 1.2-3.3 [facility] Comment on above: Performed By: #### 4 [id number] #### [address] ABSOLUTE MONO 0.3 x10*3/uL Normal 0.2-0.6 [facility] Comment on above: Performed By: #### 4 [id number] #### [address] ABSOLUTE NEUTROPHIL 3.1 x10*3/uL Normal 2.4-6.[address] [facility] Comment on above: Performed By: #### 4 [id number] #### [place] [address] [place] Basophils/100 WBC (Bld) 0.8 % Normal [facility] Comment on above: Performed By: #### 4 [id number] #### [place] [address] [place] Eosinophils/100 WBC (Bld) 2.7 % Normal [facility] Comment on above: Performed By: #### 4 [id number] #### [address] Erythrocyte distribution width (RBC) [Ratio] 13.0 % Normal 11.5-14.5 [facility] Comment on above: Performed By: #### 4 [id number] #### [address] Hematocrit (Bld) [Volume fraction] 37.5 % Normal 33.6-46.8 [facility] Comment on above: Performed By: #### 4 [id number] #### [address] Hemoglobin (Bld) [Mass/Vol] 11.8 g/dL Normal 11.7-15.8 [facility] Comment on above: Performed By: #### 4 [id number] #### [address] Immature granulocytes/100 WBC (Bld) 0.4 % Normal [facility] Comment on above: Performed By: #### 4 [id number] #### [address] Lymphocytes/100 WBC (Bld) 31.5 % Normal [facility] Comment on above: Performed By: #### 4 [id number] #### [address] MCH (RBC) [Entitic mass] 26.5 pg Low 27.5-32.3 [facility] Comment on above: Performed By: #### 4 [id number] #### [address] MCHC (RBC) [Mass/Vol] 31.5 g/dL Normal 30.7-35.[address] [facility] Comment on above: Performed By: #### 4 [id number] #### [address] MCV (RBC) [Entitic vol] 84.3 fL Normal 80.2-99 [facility] Comment on above: Performed By: #### 4 [id number] #### [address] Monocytes/100 WBC (Bld) 5.4 % Normal [facility] Comment on above: Performed By: #### 4 [id number] #### [address] Neutrophils/100 WBC (Bld) 59.2 % Normal [facility] Comment on above: Performed By: #### 4 [id number] #### [address] NUCLEATED RED BLOOD CELLS AUTO 0.0 % Normal 0.0-1.0 [facility] Comment on above: Performed By: #### 4 [id number] #### [address] PLATELET COUNT 299 x10*3/uL Normal 150-400 [facility] Comment on above: Performed By: #### 4 [id number] #### [address] RED BLOOD CELL COUNT 4.45 x10*6/uL Normal 3.60-5.20 G [facility] Comment on above: Performed By: #### 4 [id number] #### [address] WHITE BLOOD CELLS 5.2 x10*3/uL Normal 4.3-10.3 [facility] Comment on above: Performed By: #### 4 [id number] #### [address] CBC with differentialOrdered By: Background Lab on 08-12-2023 Absolute Immature Granulocytes 0.0 [facility] Age [Time] 84.3 fL 80.2 - 99 fL [facility] Age [Time] 26.5 pg Low 27.5 - 32.3 pg [facility] Age [Time] 31.5 g/dL 30.7 - 35.5 g/dL [facility] B. burgdorferi IgM IB Ql (CSF) 31.5 % [facility] Basophils (Bld) [#/Vol] 0.0 10*3/uL [facility] Basophils/100 WBC (Body fld) 0.8 % [facility] Eosinophils (Bld) [#/Vol] 1.6 10*3/uL [facility] Eosinophils (Bld) [#/Vol] 0.3 10*3/uL [facility] Eosinophils (Bld) [#/Vol] 0.1 10*3/uL [facility] Eosinophils/100 WBC (Bld) 2.7 % [facility] Erythrocyte distribution width (RBC) [Ratio] 13.0 % 11.5 - 14.5 % [facility] Hematocrit (Bld) [Volume fraction] 37.5 % 33.6 - 46.8 % [facility] Hexanoylglycine (U) [Moles/Vol] 11.8 g/dL 11.7 - 15.8 g/dL [facility] Immature granulocytes/100 WBC (Bld) 0.4 % [facility] Interpretation and review of laboratory results Abnormal [facility] Monocytes/100 WBC (Bld) 5.4 % [facility] Neurotensin (P) [Mass/Vol] 59.2 % [facility] Neutrophils (Bld) [#/Vol] 3.1 10*3/uL [facility] Nucleated RBC/100 WBC (Bld) [Ratio] 0.0 % 0.0 - 1.0 % [facility] Platelets (Bld) [#/Vol] 299 10*3/uL [facility] RBC (Bld) [#/Vol] 4.45 10*6/uL [employer] WBC (Bld) [#/Vol] 5.2 10*3/uL [employer] [facility] CT ABDOMEN PELVIS WITH IV CO NTRASTon [...] 20 RAC Omni 300 100 ml Normal [facility] HEPATIC FUNCTION PANELon Albumin [Mass/Vol] 4.0 g/dL Normal 3.5-5.0 [facility] Comment on above: Performed By: #### 4 [id number], [id number], [id number], [id number] #### [address] ALK PHOS 104 U/L Normal 24-126 [facility] Comment on above: Performed By: #### 4 [id number], [id number], [id number], [id number] #### [address] ALT [Catalytic activity/Vol] 50 U/L High 4-35 [facility] Comment on above: Performed By: #### 4 [id number], [id number], [id number], [id number] #### [address] AST [Catalytic activity/Vol] 59 U/L High 3-47 [facility] Comment on above: Performed By: #### 4 6593558, [id number], [id number], [id number] #### [address] [address] Bilirubin [Mass/Vol] 0.1 mg/dL Low 0.2-1.6 [facility] Comment on above: Performed By: #### 4 [id number], [id number], [id number], [id number] #### [address] [address] Bilirubin.indirect [Mass/Vol] 0.1 mg/dL Normal <=0.5 [facility] Comment on above: Performed By: #### 4 [id number], [id number], [id number], [id number] #### [address] [address] Protein [Mass/Vol] 6.6 g/dL Normal 6.3-8.2 [facility] Comment on above: Performed By: #### 4 [id number], 57573024, [id number], [id number] #### [place] [address] Hepatic Function Panelon Albumin (Syn fld) [Mass/Vol] 4.0 g/dL 3.5 - 5.0 g/dL [facility] Aldosterone (U) [Mass/Vol] 104 U/L 24 - 126 U/L [facility] ALT [Catalytic activity/Vol] 50 U/L High 4 - 35 U/L [facility] AST [Catalytic activity/Vol] 59 U/L High 3 - 47 U/L [facility] Bilirubin [Mass/Vol] 0.1 mg/dL Low 0.2 - 1 .6 mg/dL [facility] Bilirubin.conjugated [Mass/Vol] 0.1 mg/dL NINF - 0.5 mg/dL [facility] Protein [Mass/Vol] 6.6 g/dL 6.3 - 8.2 g/dL [facility] LIPASEon 08-12-2023 Lipase [Catalytic activity/Vol] 11 U/L Low 23-300 [facility] Comment on above: Performed By: #### 4 [id number], [id number], [id number], [id number] #### [facility] [address] Lipaseon 08-12-2023 Lipase [Catalytic activity/Vol] 11 U/L Low 23 - 300 U/L [facility] No Panel Informationon 08-12 Extra Tube Hold for add-ons. [facility] Interpretation and review of laboratory results Abnormal [facility] POCT ED/FC/GSC Urine PregOrd ered By: Della Hays on 08-12-2023 Beta HCG ( test) Ql (U) Negative [facility] Interpretation and review of laboratory results Normal [facility] Ship Washer Acceptable yes [facility] TROPONIN Ion 08-12-2023 Troponin I.cardiac [Mass/Vol] ng/mL Normal <=0.033 [facility] Comment on above: Result Comment: Nega tive: No detectable troponin-I. Performed By: #### 4 [id number] #### [facility] [address] TROPONIN I SERIESon 08-12-20 Troponin I.cardiac [Mass/Vol] ng/mL Normal <=0.033 [facility] Comment on above: Result Comment: Nega tive: No detectable troponin-I. Performed By: #### 4 [id number], [id number], [id number], [id number] #### [address] Troponin I (One time)on Interpretation and review of laboratory results Normal [facility] Troponin I.cardiac [Mass/Vol] ng/mL [facility] - 0.033 ng/mL [facility] Comment on above: Negative: No detectable troponin-I. [facility] Troponin I - Series (X 3)on 08-12-2023 Interpretation and review of laboratory results Normal [facility] Troponin I.cardiac [Mass/Vol] ng/mL [facility] - 0.033 ng/mL [facility] Comment on above: Negative: No detectable troponin-I. [facility] URINALYSIS WITH REFLEX CULTU REon 08-12-2023 Appearance (U) Clear Normal [facility] Comment on above: Performed By: #### 4 [id number] #### [place] [address] [place] BILIRUBIN UA Negative Normal Negative [facility] Comment on above: Performed By: #### 4 [id number] #### [place] [address] [place] Color (U) Yellow Normal [facility] Comment on above: Performed By: #### 4 [id number] #### [address] [address] [place] Glucose Ql (U) Negative Normal Negative [facility] Comment on above: Performed By: #### 4 [id number] #### [address] [address] [place] Ketones Ql (U) Negative Normal Negative [facility] Comment on above: Performed By: #### 4 [id number] #### [address] [address] [place] LEUKOESTERASE Negative Normal Negative [facility] Comment on above: Performed By: #### 4 [id number] #### [address] [address] [place] MUCOUS-URINE Occasional Normal [facility] Comment on above: Performed By: #### 4 [id number] #### [address] Nitrite Ql (U) Negative Normal Negative [facility] Comment on above: Performed By: #### 4 [id number] #### [address] OCCULT BLD Negative Normal Negative [facility] Comment on above: Performed By: #### 4 [id number] #### [address] PH, URINE 5.0 Normal [facility] Comment on above: Performed By: #### 4 [id number] #### [address] Protein Ql (U) Negative Normal Negative [facility] Comment on above: Performed By: #### 4 [id number] #### [address] RBC LM.HPF (Urine sed) [#/Area] /[HPF] Normal <=5 [facility] Comment on above: Performed By: #### 4 [id number] #### [address] SPECIFIC GRAVITY, URINE 1.025 Normal [facility] Comment on above: Performed By: #### 4 [id number] #### [address] SQUAMOUS EPI CELLS 51 /LPF Normal [facility] Comment on above: Performed By: #### 4 [id number] #### [address] UROBILINOGEN UA Negative Normal <2.0 [facility] Comment on above: Performed By: #### 4 [id number] #### [address] WBC LM.HPF (Urine sed) [#/Area] 2 /[HPF] Normal <=5 [facility] Comment on above: Performed By: #### 4 [id number] #### [address] Urinalysis complete W Reflex Culture panel (U)on 08-12-2023 Acetone [Mass/Vol] Negative Negative [facility] Appearance (Body fld) Clear Gen [facility] Bilirubin Ql (U) Negative Negative [facility] Color (Stone) Yellow [facility] G6PD (RBC) [Catalytic activity/Vol] Negative Negative [facility] Hemoglobin Ql (U) [facility] Leukocyte esterase Test strip Ql (U) Negative Negative [facility] Mucor racemosus IgE Qn (S) Occasional /LPF [facility] Nitrite Test strip (U) [Mass/Vol] Negative Negative [facility] pH (Migue fld) 5.0 [facility] Protein (U) [Mass/Vol] Negative Negative [facility] [place] IgE Qn (S) Negative Negative [facility] Specific gravity (U) [Rel density] 1.025 [facility] Spherocytes LM Ql (Bld) 51 /LPF [facility] Urobilinogen Qn (U) Negative [facility] - 2.0 [facility] WBC (U) [#/Vol] 2 /uL [facility] 36on 08-02-2023 36 Call placed to alex nt to discuss how often she is taking Miralax. Patient is taking Miralax once daily as instructed. Per Alba Montague she was instructed that she can take it twice a day. Also advised patient that Alba Montague will be consulting with the physician who performed her procedure. Normal [facility] Orders Onlyon 08-02-2023 Orders Only [id number] Darrian Leal 1970 F Date Provider Department Center 08/02/2023 [facility] Gerardo Heal No family history on file [facility] CNOVon 07-31-2023 CNCHELITA Office Visit (SHERON ) MARY LEAL ([id number]) 1970 F Date Time Provider Department 07/31/23 2:30 PM NELSY CHÁVEZ During your visit today, we recorded the following information about you: Pulse Blood pressure Weight Height 76/minute 136/96 69.9 kg 1.626 m Nelsy Chávez APRN.NET WASHER 07/31/2023 5:35 PM Signed Female Pelvic Medicine [...] new Pain: no Abnormal Vaginal Discharge: no [employer] LEAD 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 She has no history of an abnormal mammogram with cysts on US LMP: No LMP recorded. Patient has had a hysterectomy.; Menopause 3 years ago; hysterectomy in 2015: Menstrual history: NA; Deliveries: I have confirmed and edited as necessary, the PFSH obtained by others. Nelsy Chávez APRN.NET WASHER Quality Analyst/Technical Writer offered: Patient declines. OBJECTIVE: There were no [...] which included preparing to see the patient, [id number] patient care, completing clinical documentation, performing a medically appropriate examination, counseling and educating the patient/family/caregiv er and ordering medications, tests, or procedures. Referring Provider: SELF [[id number]] Allergies As of Date: 07/31/2023 Noted Allergy Reaction RISPERIDONE 07/27/2021 5 - Intolerance Comments: Breast discharge Date Reviewed: 07/31/2023 Reviewed by: Jessica Cornell, MAKI - Fully Assessed Reason for Visit: Urinary Retention [228] Primary Visit Diagnosis:Incomplete bladder emptying [R33.9] Other Visit Diagnoses:Constipation , unspecified constipation type [K59.00] Urinary urgency [R39.15] Urinary frequency [R35.0] Nocturia [R35.1] Order(s):UA DIP, URINE (POC) [[id number]] Order #: [id number]. #:[id number] [[id number]] Order #: [id number] Prescriptions as of 07/31/2023 - atenolol (TENORMIN) [...] 10 m (more content not included)... Normal [facility] UA DIP, URINE (POC)on 2022 BILIRUBIN UA (POCT) Negative Negative [facility] CLARITY UA (POCT) Clear [facility] COLOR UA (POCT) Yellow [facility] GLUCOSE UA (POCT) Negative Negative mg/dL [facility] Hemoglobin Ql (U) Negative Negative [facility] KETONE UA (POCT) Negative Negative mg/dL [facility] LEUKOCYTES UA (POCT) Negative Negative [facility] NITRITE UA (POCT) Negative Negative [facility] PH UA (POCT) 5.0 4.5 - 8.0 [facility] Protein Ql (U) Negative Negative mg/dL [facility] SPECIFIC GRAVITY UA (POCT) 1.010 1.005 - 1.030 [facility] UROBILINOGEN UA (POCT) 0.2 E.U./dL Normal E.U./dL [facility] HISTOLOGY - TISSUE EXAMon LAB AP [...] Clinical Laboratory Improvement Amendments of 1998. Normal [facility] Comment on above: Performed By: #### L [id number] ####[facility] ([facility] [place] [address] LAB AP CASE REPORT Normal [facility] Comment on above: Result Comment: Surg ical Pathology Case: [id number] Authorizing Provider: Matteo Quinones MD Collected: 07/25/2023 1126 Ordering Location: Elice[facility] Nicholas Received: 07/25/2023 1233 [facility] [place] Pathologist: Boni Benito MD Specimens: A) - Small Intestine, Duodenum, R/O CELIAC B) - Gastric, R/O H PYLORI C) - Distal Esophagus, R/O EOE D) - Proximal Esophagus, R/O EOE E) - Small Intestine, Terminal Ileum, R/O COLITIS Performed By: #### L [id number] ####[facility] [place] [place] [address] LAB AP CLINICAL INFORMATION Order Diagnoses Normal [facility] Comment on above: Result Comment: K21. 9 - Gastroesophageal reflux disease without esophagitis [ICD-10-CM] R11.0 - Nausea [ICD-10-CM] R19.7 - Diarrhea, unspecified type [ICD-10-CM] Performed By: #### L [id number] ####[facility] [place] [place] [address] LAB AP GROSS DESCRIPTION Normal [facility] Comment on [...] formalin in a container labeled Maryjonathan Leal, Gastric R/O H PYLORI . It consists of 5, soft, jaimes-white tissue biopsy fragments measuring 0.6 x 0.3 x 0.2 cm in aggregate. The entire specimen is submitted in 1 cassette. Please note some minute fragments may not survive processing Leyla Goetz, PGY 1 C. Distal Esophagus. Received in formalin in a container labeled Maryjonathan Leal, Distal esoph R/O EOE . It [...] Goetz, PGY 1 Performed By: #### L [id number] ####[facility] [place] [place] [address] LAB AP MICROSCOPIC DESCRIPTION Microscopic examination performed. [facility] Comment on above: Performed By: #### L [id number] ####[facility] [place] [place] [address] LAB AP REPORT FINAL DIAGNOSIS NARRATIVE [facility] Comment on above: Result Comment: A. [...] or malignancy identified. Performed By: #### L [id number] ####[facility] [place] [place] [address] [facility] 07-25-2023 -- Attestation signed by Matteo Quinones MD at [...] includes Colon surgery; Stomach surgery; Hysterectomy; Appendectomy; Esophagogastroduodenos copy; and Foot surgery (Right). Social History She [...] bowel movements. Plan EGD and colonoscopy Normal [facility] HP H&P reviewed. The patient was examined and there are no changes to the H&P. Normal [facility] NURSNOTEon 07-25-2023 NURSNOTE ANASTOMOSIS SITE REACHED Normal [facility] Orders Onlyon 07-25-2023 Orders Only [id number] Darrian Leal en 1970 F Date Provider Department Center 07/25/202350320-WHEJVFILIPE PAZ MP [facility] Pavi No family history on file Normal [facility] POCT GLUCOSE METER UNSOLICIT ED RESULTSon 07-25-2023 Glucose [Mass/Vol] 87 mg/dL Normal 70-105 [facility] Comment on above: Order Comment: Waive d Testing in the ED is performed under the ED CLIA certificate #[id number]. Result Comment: dhol as Performed By: #### L [id number] #### [facility] LAB (BEAKER) [address] [place] [address] Orders Onlyon 07-21-2023 Orders Only [id number] Darrian Leal en 1970 F Date Provider Department Center 07/21/2023 Anton-ARELI MONSALVE [facility] No family history on file Normal [facility] Orders Onlyon 07-19-2023 Orders Only [id number] Darrian Leal en 1970 F Date Provider Department Center 07/19/2023 Karli-[facility] Gerardo Heal No family history on file Normal [facility] Prep for Procedureon 023 Prep for Procedure [id number] Darrian Leal en 1970 F Date Provider Department Center 07/17/2023 Sakina-MATTEO QUINONES [facility] No family history on file Normal [facility] HPon 07-11-2023 HP Images from the original note were not included. [facility] [address] [place] [address] [address] SUBJECTIVE: Patient ID: Mary Leal is a 53 y.o. female presents today for Chief Complaint Patient presents with New Patient CHUCKIE HPI: Mary Leal is a 53 y.o. female seen at the request of Eliceo Gómez Jr., DO for evaluation of CHUCKIE. Has tried CPAP, no longer wearing it. Was referred by Pauline Chrsitensen MD. Here to inquire about the Inspire hypoglossal nerve stimulator. Does not have breast implants. Never smoker. Also reports that her voice is always hoarse and she hacks up phlegm 24/7, thick and foamy. Has bad GERD, Takes Dexilant daily, sees Dr. Montague at [facility]. HISTORY: Past Medical History: Diagnosis Date ADD (attention deficit disorder) Anxiety Asthma Bipolar disorder ([facility]) Depression Dysphagia Gastric paresis GERD (gastroesophageal reflux disease) Headache migraines History of pleurisy STATES 2 WEEKS AGO Hypertension Obesity Primary insomnia 07/07/2020 Rectal bleeding Restless leg syndrome Visual impairment one contact left, glasses Past Surgical History: Procedure Laterality Date APPENDECTOMY ARTHROSCOPIC REPAIR ACL Left COLONOSCOPY COLONOSCOPY with bx's N/A 03/20/2020 Performed by Noman Mayo MD at [facility] ENDOSCOPY EGD, DILATATION N/A 09/25/2020 Performed by Noman Mayo MD at [facility] ENDOSCOPY FOOT SURGERY 06/25/2020 left foot surgery HYSTERECTOMY LASER LINGUAL TONISILLECTOMY Circumferential 07/08/2021 Performed by Areli Avila MD PhD at [facility] MRI FOOT LEFT NECK SURGERY PLANTAR FASCIECTOMY RELEASE PHARYNGEAL SCAR CPT 82177 Circumferential 07/08/2021 Performed by Areli Avila MD [...] tablet (3 mg total) by mouth nightly. fluticasone-umeclidin- vilanter (TRELEGY ELLIPTA) 100-62.5-25 mcg blister with device [...] day, no mor (more content not included)... [facility] Orders Onlyon 06-26-2023 Orders Only [id number] Darrian Leal 1970 F Date Provider Department Center 06/26/2023 [facility] Gerardo Heal No family history on file [facility] Office Visit (Cardiology)on 06-13-2023 Follow-up visit Diagnoses/Problems Assessed Chest pain (786.50) (R07.9) Elevated troponin (790.6) (R77.8) Fatigue (780.79) (R53.83) Never a smoker Overweight with body mass index (BMI) of 27 to 27.9 in adult (278.02,V85.23) (E66.3,Z68.27) Orders Elevated troponin IO EKG Electrocardiogram- 12 Lead; Status:Active - Perform Order,Retrospective Authorization; Requested for:[id number]; Overweight with body mass index (BMI) of 27 to 27.9 in adult Healthy Weight Tips; Status:Complete - Retrospective Authorization; Done: 13Jun2023 Some eating tips that can help you lose weight.; Status:Complete - Retrospective Authorization; Done: [id number] SocHx: Never a smoker Tobacco Use Screening; Status:Complete; Done: [id number] Patient Instructions Please bring all medicines, vitamins, [...] diaphoresis with recent work-up that [facility] emergency room. Reportedly her troponins [...] of which are currently being investigated at [facility] (now her fourth GI specialist). Last year while in [place] she had similar issues with elevated troponins in the ED and underwent heart catheterization that did not reveal any specific significant disease, details of the discharge summary are reviewed She underwent recent stress perfusion imaging at [facility], the report is reviewed, she [...] investigate the troponin rise at [facility] however I believe this is likely a non-NV troponin elevation, likely associated with underlying inflammatory [...] negative for complaint. Vitals Vital Signs Recorded: [id number] 10:37AM Heart Rate70, Apical Ipkwzlor981, RUE, Sitting Zvpykclmj85, RUE, Sitting Height5 ft 4 in Nbcyfh018 lb BMI Uhsidujdxm32.46 kg/m2 BSA Calculated1.78 Tobacco Useb) No PHQ-2 [...] Screening.on 023 Adult depression screening assessment No [facility] [employer] 320 DO Work Phone: Adult depression screening assessment Yes [facility] [facility] DO Work Phone: Adult depression screening assessment Moderate (10-14) -[facility]io [employer] 320 DO Work Phone: Fall risk assessment a) No falls within the last year [facility] 320 DO Work Phone: Tobacco use status [facility] b) No [facility] [facility] DO Work Phone: [phone] Tobacco Screening. 1-Several days [facility] [facility] DO Work Phone: [phone] Tobacco Screening. 3-Nearly every day [facility] [facility] DO Work Phone: [phone] Tobacco Screening. 0-Not at all [facility] 320 DO Work Phone: [phone] Tobacco Screening. Somewhat Difficult [facility] 320 DO Work Phone: STR cardiac stress/lexiscano n 06-09-2023 STR cardiac stress/lexiscan [facility] [place] [address] Cardiac Stress Test Signed Patient: Mary Leal MR#: [id number] 863 : 1970 Acct:[id number] Age/Sex: 53 / F ADM Date: 06/05/23 Loc: ER Room: Type: [facility] ER Attending Dr: Copies to: DO Marielle Soto MD, FACC Ordering Provider: Anibal Valle DO Date of Service: 06/07/23 STR/STR cardiac stress/lexiscan: chest pain ORDERED BY: Anibla Valle DO A 53-year-old patient with chest [...] 06/09/23 1614 Dictated By: Marielle Scruggs MD, [facility] 06/09/23 1550 Signed By: 06/10/[address] [facility] Telemedici neon 06-08-2023 Behavioral Health Telemedicine [id number] Mary Leal 1970 F Date Provider Department Center 06/08/2023 [facility] Gerardo Heal No family history on file Level of Service:19372 [place] OFFICE/OUTPATIENT ESTABLISHED MOD MDM 30-39 MIN Reason for Visit and Comments: Telehealth Audio/video Visit [871] [facility] NM mirtha perf SPECT rest stron 06-08-2023 NM mirtha perf SPECT rest str [facility] [address] Nuclear Medicine Report Signed Patient: Mary Leal MR#: [id number] 863 : 1970 Acct:[id number] Age/Sex: 53 / F ADM Date: 06/05/23 Loc: ER Room: Type: [facility] ER Attending Dr: Copies to: DO Marielle Soto MD, [facility] Ordering Provider: Anibal Valle DO Date [...] available for comparison. Transcribed By: KINSEY 06/08/23 1659 Dictated By: Marielle Scruggs MD, [facility] 06/08/23 1540 Signed By: 06/09/23 1532 Normal [facility] 36on 06-05-2023 36 Patient calls wondering about her calprotectin being high. Please advise Normal [facility] Activated partial thrombopla stin time (aPTT) in platelet poor plasma by coagulation aOrdered By: Anibal Valle on 06-05-2023 aPTT Coag (PPP) [Time] 28.0 s 25.1-36.5 [facility] B-Type Natriuretic Peptideon 06-05-2023 Natriuretic peptide B (Bld) [Mass/Vol] 39.0 pg/mL Normal 5-100 [facility] Comment on above: Result Comment: PERF ORMED BY: [facility] [address] [place] [address] PATHOLOGIST [employer] LEVAR CASE M.D. Performed By: #### H S TROP, BNP, BMP, CBC, PTT, PT ####[facility] [place] [id number] [facility] Basic Metabolic Panelon 05-08 Anion gap [Moles/Vol] 10.6 mmol/L Normal 6.0-15.0 [facility] Comment on above: Performed By: #### H S TROP, BNP, BMP, CBC, PTT, PT ####[facility] [address] [place] [address] [facility] Calcium [Mass/Vol] 9.0 mg/dL Normal 8.6-10.3 [facility] Comment on above: Performed By: #### H S TROP, BNP, BMP, CBC, PTT, PT ####[place] [address] [place] [address] [facility] Chloride [Moles/Vol] 108 mmol/L High 98-107 [facility] Comment on above: Performed By: #### H S TROP, BNP, BMP, CBC, PTT, PT ####[place] [address] [place] [address] [facility] CO2 [Moles/Vol] 23.2 mmol/L Normal 21.0-31.0 [facility] Comment on above: Performed By: #### H S TROP, BNP, BMP, CBC, PTT, PT ####[address] [address] [facility] Creatinine [Mass/Vol] 0.67 mg/dL Normal 0.60-1.20 [facility] Comment on above: Performed By: #### H S TROP, BNP, BMP, CBC, PTT, PT ####[place] [address] [place] [id number] [facility] Creatinine Clr Calc Pharmacy [address] [facility] Comment on above: Result Comment: PERF ORMED BY: [facility] [address] [place] [address] PATHOLOGIST [employer] LEVAR CASE M.D. Performed By: #### H S TROP, BNP, BMP, CBC, PTT, PT ####[address] [address] [facility] GFR/1.73 sq M.predicted MDRD (S/P/Bld) [Vol rate/Area] mL/min/{1.73_m2} [facility] Comment on above: Performed By: #### H S TROP, BNP, BMP, CBC, PTT, PT ####[place] [id number] [facility] Glucose [Mass/Vol] 106 mg/dL High 70-100 [facility] Comment on above: Result Comment: [place] Glucose Reference Range is dependent on time and content of last meal. Glucose of more than 200 mg/dL in a nonstressed, ambulatory subject supports the diagnosis of Diabetes Mellitus. ADA recommended reference range Performed By: #### H S TROP, BNP, BMP, CBC, PTT, PT ####[facility] [id number] Potassium [Moles/Vol] 3.8 mmol/L Normal 3.5-5.1 [facility] Comment on above: Performed By: #### H S TROP, BNP, BMP, CBC, PTT, PT ####[facility] [id number] Sodium [Moles/Vol] 138 mmol/L Normal 136-145 [facility] Comment on above: Performed By: #### H S TROP, BNP, BMP, CBC, PTT, PT ####[facility] [id number] Urea nitrogen [Mass/Vol] 10 mg/dL Normal 7-25 [facility] Comment on above: Performed By: #### H S TROP, BNP, BMP, CBC, PTT, PT ####[facility] Basophils Auto (Bld) [#/Vol] Ordered By: Anibal Valle on 06-05-2023 Basophils (Bld) [#/Vol] 0.0 10*3/uL 0.0-0.2 [facility] Basophils/100 WBC Auto (Bld) Ordered By: Anibal Valle on 06-05-2023 Basophils/100 WBC (Bld) 0.4 % . [facility] Calcium [Mass/volume] in Ser um or PlasmaOrdered By: Anibal Valle on 06-05-2023 Calcium [Mass/Vol] 9.0 mg/dL 8.6-10.3 [facility] Carbon dioxide, total [Moles /volume] in Serum or PlasmaOrdered By: Anibal Valle on 06-05-2023 CO2 [Moles/Vol] 23.2 mmol/L 21.0-31.0 [facility] Chloride [Moles/volume] in S jay or PlasmaOrdered By: Anibal Valle on 06-05-2023 Chloride [Moles/Vol] 108 mmol/L 98-107 [facility] Complete Blood Count Auto Di ffon 06-05-2023 Basophils (Bld) [#/Vol] 0.0 10*3/uL Normal 0.0-0.2 [facility] Comment on above: Result Comment: PERF ORMED BY: [place] [address] PATHOLOGIST [employer] L[employer] CASE M.D. Performed By: #### H S TROP, BNP, BMP, CBC, PTT, PT #### [address] Basophils/100 WBC (Bld) 0.4 % Normal . [facility] Comment on above: Performed By: #### H S TROP, BNP, BMP, CBC, PTT, PT #### [address] Eosinophils (Bld) [#/Vol] 0.1 10*3/uL Normal 0.0-0.45 [facility] Comment on above: Performed By: #### H S TROP, BNP, BMP, CBC, PTT, PT #### [address] Eosinophils/100 WBC (Bld) 1.9 % Normal . [facility] Comment on above: Performed By: #### H S TROP, BNP, BMP, CBC, PTT, PT #### [address] Erythrocyte distribution width (RBC) [Ratio] 13.9 % Normal 11.9-15.3 [facility] Comment on above: Performed By: #### H S TROP, BNP, BMP, CBC, PTT, PT #### [address] Hematocrit (Bld) [Volume fraction] 34.4 % Normal 34.0-46.4 [facility] Comment on above: Performed By: #### H S TROP, BNP, BMP, CBC, PTT, PT #### [address] Hemoglobin (Bld) [Mass/Vol] 11.9 g/dL Normal 11.8-15.4 [facility] Comment on above: Performed By: #### H S TROP, BNP, BMP, CBC, PTT, PT #### [address] Lymphocytes (Bld) [#/Vol] 1.8 10*3/uL Normal 1.00-4.8 [facility] Comment on above: Performed By: #### H S TROP, BNP, BMP, CBC, PTT, PT #### [address] Lymphocytes/100 WBC (Bld) 41.0 % Normal . [facility] Comment on above: Performed By: #### H S TROP, BNP, BMP, CBC, PTT, PT #### [address] MCH (RBC) [Entitic mass] 27.7 pg Normal 24.7-34.3 [facility] Comment on above: Performed By: #### H S TROP, BNP, BMP, CBC, PTT, PT #### [address] MCV (RBC) [Entitic vol] 80.2 fL Normal 80-100 [facility] Comment on above: Performed By: #### H S TROP, BNP, BMP, CBC, PTT, PT #### [address] Mean Corpuscular HGB Conc 34.5 g/dL Normal 32.0-35.0 [facility] Comment on above: Performed By: #### H S TROP, BNP, BMP, CBC, PTT, PT #### [address] Monocytes (Bld) [#/Vol] 0.3 10*3/uL Normal 0.0-0.8 [facility] Comment on above: Performed By: #### H S TROP, BNP, BMP, CBC, PTT, PT #### [facility] [address] [place] [address] Monocytes/100 WBC (Bld) 24.18 % High 0.00-20.00 [facility] Comment on above: Result Comment: For adults in ED, MDW > 20.0 may be associated with a higher risk of sepsis during the first 12 hrs of hospital admission Performed By: #### H S TROP, BNP, BMP, CBC, PTT, PT #### [address] Monocytes/100 WBC (Bld) 7.5 % Normal . [facility] Comment on above: Performed By: #### H S TROP, BNP, BMP, CBC, PTT, PT #### [address] Neutrophils (Bld) [#/Vol] 2.2 10*3/uL Normal 1.8-7.7 [facility] Comment on above: Performed By: #### H S TROP, BNP, BMP, CBC, PTT, PT #### [address] Neutrophils/100 WBC (Bld) 49.2 % Normal . [facility] Comment on above: Performed By: #### H S TROP, BNP, BMP, CBC, PTT, PT #### [address] NRBC% 0.1 /100{WBC} Normal 0-0.5 [facility] Comment on above: Performed By: #### H S TROP, BNP, BMP, CBC, PTT, PT #### [address] Platelet mean volume (Bld) [Entitic vol] 7.4 fL Normal 6.3-10.7 [facility] Comment on above: Performed By: #### H S TROP, BNP, BMP, CBC, PTT, PT #### [place] [address] [place] Platelets (Bld) [#/Vol] 336 10*3/uL Normal 150-450 [facility] Comment on above: Performed By: #### H S TROP, BNP, BMP, CBC, PTT, PT #### [facility] [address] RBC (Bld) [#/Vol] 4.29 10*6/uL Normal 3.60-5.00 [facility] Comment on above: Performed By: #### H S TROP, BNP, BMP, CBC, PTT, PT #### [facility] [address] WBC (Bld) [#/Vol] 4.4 10*3/uL Normal 3.8-11.6 [facility] Comment on above: Performed By: #### H S TROP, BNP, BMP, CBC, PTT, PT #### [facility] [address] Creatinine [Mass/volume] in Serum or PlasmaOrdered By: Anibal Valle on 06-05-2023 Creatinine [Mass/Vol] 0.67 mg/dL 0.60-1.20 [facility] ECG 12 lead ECGon 06-05-2023 ECG 12 lead ECG [facility] [address] [place] [address] [place] [address] Electrocardiograph Report Signed Patient: Mary Leal MR#: [id number] 863 : 1970 Acct:[id number] Age/Sex: 53 / F ADM Date: 06/05/23 Loc: ER Room: Type: [facility] ER Attending Dr: Ordering Provider: Olayinka [...] was found Confirmed by ANIBAL VALLE DO ([id number]) on 06/05/2023 4:21:05 PM Referred By: Electronically Signed By:ANIBAL VALLE DO Transcribed By: BRIDGETTE Signed By Anibal Valle DO 06/[address] [facility] ECG 12 lead ECG [facility] Main [place] [id number] Electrocardiograph Report Signed Patient: Mary Leal MR#: [id number] 863 : 1970 Acct:[id number] Age/Sex: 53 / F ADM Date: 06/05/23 Loc: ER Room: Type: [facility] ER Attending Dr: Ordering Provider: Anibal [...] was found Confirmed by ANIBAL VALLE DO ([id number]) on 06/05/2023 4:21:06 PM Referred By: Electronically Signed By:ANIBAL VALLE DO Transcribed By: BRIDGETTE Signed By Anibal Valle DO 06/[address] [facility] Eosinophils Auto (Bld) [#/Vo l]Ordered By: nAibal Valle on 06-05-2023 Eosinophils (Bld) [#/Vol] 0.1 10*3/uL 0.0-0.45 [facility] Eosinophils/100 WBC Auto (Bl d)Ordered By: Anibal Valle on 06-05-2023 Eosinophils/100 WBC (Bld) 1.9 % . [facility] Erythrocyte distribution wid th Auto (RBC) [Ratio]Ordered By: Anibal Valle on 06-05-2023 Erythrocyte distribution width (RBC) [Ratio] 13.9 % 11.9-15.3 [facility] Glucose [Mass/volume] in Ser um or PlasmaOrdered By: Anibal Valle on 06-05-2023 Glucose [Mass/Vol] 106 mg/dL 70-100 [facility] Comment on above: ADA recommended refe rence rangeRandom Glucose Reference Range is dependent on time and content of last meal. Glucose of more than 200 mg/dL in a nonstressed, ambulatory subject supports the diagnosis of Diabetes Mellitus. Hematocrit Auto (Bld) [Volum e fraction]Ordered By: Anibal Valle on 06-05-2023 Hematocrit (Bld) [Volume fraction] 34.4 % 34.0-46.4 [facility] Hemoglobin [Mass/volume] in BloodOrdered By: Anibal Valle on 06-05-2023 Hemoglobin (Bld) [Mass/Vol] 11.9 g/dL 11.8-15.4 [facility] Laboratory - CoagulationOrde red By: Anibal Valle on 06-05-2023 PT Coag (PPP) [Time] 12.0 s 9.0-12.9 [facility] Leukocytes [#/volume] correc herbert for nucleated erythrocytes in Blood by Automated counOrdered By: Anibal Valle on 06-05-2023 WBC corrected for nucl RBC Auto (Bld) [#/Vol] 4.4 10*3/uL 3.8-11.6 [facility] Lymphocytes Auto (Bld) [#/Vo l]Ordered By: Anibal Valle on 06-05-2023 Lymphocytes (Bld) [#/Vol] 1.8 10*3/uL 1.00-4.8 [facility] Lymphocytes/100 WBC Auto (Bl d)Ordered By: Anibal Valle on 06-05-2023 Lymphocytes/100 WBC (Bld) 41.0 % . [facility] MCH Auto (RBC) [Entitic mass ]Ordered By: Anibal Valle on 06-05-2023 MCH (RBC) [Entitic mass] 27.7 pg 24.7-34.3 [facility] MCHC Auto (RBC) [Mass/Vol]Or dered By: Anibal Valle on 06-05-2023 MCHC (RBC) [Mass/Vol] 34.5 g/dL 32.0-35.0 [facility] MCV Auto (RBC) [Entitic vol] Ordered By: Anibal Valle on 06-05-2023 MCV (RBC) [Entitic vol] 80.2 fL 80-100 [facility] Monocyte distribution width [Entitic volume] in Blood by AutomatedOrdered By: Anibal Valle on 06-05-2023 Monocyte distribution width Auto (Bld) [Entitic vol] 24.18 % 0.00-20.00 [facility] Comment on above: For adults in ED, MD W > 20.0 may be associated with a higher risk of sepsis during the first 12 hrs of hospital admission Monocytes Auto (Bld) [#/Vol] Ordered By: Anibal Valle on 06-05-2023 Monocytes (Bld) [#/Vol] 0.3 10*3/uL 0.0-0.8 [facility] Monocytes/100 WBC Auto (Bld) Ordered By: Anibal Valle on 06-05-2023 Monocytes/100 WBC (Bld) 7.5 % . [facility] Natriuretic peptide B [Mass/ Vol]Ordered By: Anibal Valle on 06-05-2023 Natriuretic peptide B (Bld) [Mass/Vol] 39.0 pg/mL 5-100 [facility] Neutrophils Auto (Bld) [#/Vo l]Ordered By: Anibal Valle on 06-05-2023 Neutrophils (Bld) [#/Vol] 2.2 10*3/uL 1.8-7.7 [facility] Neutrophils/100 WBC Auto (Bl d)Ordered By: Anibal Valle on 06-05-2023 Neutrophils/100 WBC (Bld) 49.2 % . [facility] No Panel InformationOrdered By: Anibal Valle on 06-05-2023 Estimated GFR (CKD-EPI) > 60.0 mL/Min [facility] Creatinine Clearance (Chem 97.82 [facility] Nucleated erythrocytes [Pres ence] in Blood by Automated countOrdered By: Anibal Valle on 06-05-2023 Nucleated RBC Auto Ql (Bld) 0.1 /100{WBC} 0-0.5 [facility] Partial Thromboplastin Timeo n 06-05-2023 aPTT Coag (Bld) [Time] 28.0 s Normal 25.1-36.5 [facility] Comment on above: Result Comment: PERF ORMED BY: [facility] [address] [place] [id number] PATHOLOGIST [employer] LEVAR CASE M.D. Performed By: #### H S TROP, BNP, BMP, CBC, PTT, PT ####[facility] [id number] [place] [id number] [facility] Platelet mean volume Auto (B ld) [Entitic vol]Ordered By: Anibal Valle on 06-05-2023 Platelet mean volume (Bld) [Entitic vol] 7.4 fL 6.3-10.7 [facility] Platelet poor plasma interna tional normalized ratio (INR) by coagulation assay (relatOrdered By: Anibal Valle on 06-05-2023 INR Coag (PPP) [Relative time] 1.0 {INR} [facility] Comment on above: INR Therapeutic Rang [...] 06-05-2023 Platelets (Bld) [#/Vol] 336 10*3/uL 150-450 [facility] Potassium [Moles/volume] in Serum or PlasmaOrdered By: Anibal Valle on 06-05-2023 Potassium [Moles/Vol] 3.8 mmol/L 3.5-5.1 [facility] Prothrombin Time INRon 06-05 INR Coag (PPP) [Relative time] 1.0 {INR} Normal [facility] Comment on above: Result Comment: INR [...] TROP, BNP, BMP, CBC, PTT, PT #### [facility] [address] [place] [address] [place] PT Coag (PPP) [Time] 12.0 s Normal 9.0-12.9 [facility] Comment on above: Performed By: #### H S TROP, BNP, BMP, CBC, PTT, PT #### [facility] [address] RBC Auto (Bld) [#/Vol]Ordere d By: Anibal Valle on 06-05-2023 RBC (Bld) [#/Vol] 4.29 10*6/uL 3.60-5.00 [facility] Serum or plasma anion gap de terminationOrdered By: Anibal Valle on 06-05-2023 Anion gap [Moles/Vol] 10.6 mmol/L 6.0-15.0 [facility] Sodium [Moles/volume] in Ser um or PlasmaOrdered By: Anibal Valle on 06-05-2023 Sodium [Moles/Vol] 138 mmol/L 136-145 [facility] Troponin I High Sensitivityo n 06-05-2023 Troponin I High Sensitivity 2.5 pg/mL Normal 0.0-15.0 [facility] Comment on above: Result Comment: PERF ORMED BY: [place] [address] PATHOLOGIST LINE ASSEMBLER [employer] LEVAR CASE M.D. Performed By: #### H S TROP #### [facility] [address] Troponin I High Sensitivity 2.6 pg/mL Normal 0.0-15.0 [facility] Comment on above: Result Comment: PERF ORMED BY: [place] [address] PATHOLOGIST LINE ASSEMBLER [employer] LEVAR CASE M.D. Performed By: #### H S TROP, BNP, BMP, CBC, PTT, PT ####[facility] [id number] [place] [address] [facility] Troponin I.cardiac [Mass/vol ume] in Serum or Plasma by Detection limit <= 0.01 ng/Ordered By: Anibal Valle on 06-05-2023 Troponin I.cardiac DL <= 0.01 ng/mL [Mass/Vol] 2.6 pg/mL 0.0-15.0 [facility] Urea nitrogen [Mass/volume] in Serum or PlasmaOrdered By: Anibal Valle on 06-05-2023 Urea nitrogen [Mass/Vol] 10 mg/dL 7-25 [facility] WBC Auto (Bld) [#/Vol]Ordere d By: Anibal Valle on 06-05-2023 WBC (Bld) [#/Vol] 4.4 10*3/uL 3.8-11.6 [facility] XR chest 1V portableon 06-05 XR chest 1V portable [facility] [address] XRay Report Signed Patient: Mary Leal MR#: [id number] : 1970 Acct:[id number] Age/Sex: 53 / F ADM Date: 06/05/23 [...] Andres Bullard M.D.06/05/2023 9:53 AM Dictation Location: [place] [address] Transcribed By: [facility] 06/05/23 0953 Dictated By: Andres Bullard DO 06/05/23 0952 Signed By: 06/05/[address] [facility] 29on 05-31-2023 29 Addended by: SIOMARA MONTAGUE on: 06/13/2023 03:40 PM Modules accepted: Orders Normal [facility] BASIC METABOLIC PANELon 07-2 Anion gap [Moles/Vol] 12 mmol/L Normal 7-20 [facility] Comment on above: Performed By: #### L [id number] #### [facility]) [address] [place] [address] Calcium [Mass/Vol] 9.8 mg/dL Normal 8.6-10.3 [facility] Comment on above: Performed By: #### L [id number] #### [facility]) [address] [place] [address] Chloride [Moles/Vol] 105 mmol/L Normal 98-107 [facility] Comment on above: Performed By: #### L [id number] #### [facility]) [address] [place] [address] CO2 [Moles/Vol] 27 mmol/L Normal 21-31 [facility] Comment on above: Performed By: #### L [id number] #### [facility]) [address] [place] [address] Creatinine [Mass/Vol] 0.75 mg/dL Normal 0.60-1.20 [facility] Comment on above: Performed By: #### L [id number] #### [facility]) [address] [place] [address] GLOMERULAR FILTRATION RATE ML/MIN/1.73 SQ M.PREDICTED 96.3 mL/min/1.73m*2 Normal >60.0 [facility] Comment on above: Result Comment: [facility]???s estimated glomerular filtration rate (eGFR) [...] individuals. Performed By: #### L [id number] #### [facility] ([facility]) [address] [place] [address] Glucose [Mass/Vol] 103 mg/dL High 70-100 [facility] Comment on above: Performed By: #### L [id number] #### [facility] ([facility]) [address] [place] [address] Potassium [Moles/Vol] 4.6 mmol/L Normal 3.5-5.1 [facility] Comment on above: Performed By: #### L [id number] #### [facility] ([facility]) [address] [place] [address] Sodium [Moles/Vol] 139 mmol/L Normal 136-145 [facility] Comment on above: Performed By: #### L [id number] #### [facility] ([facility]) [address] [place] [address] Urea nitrogen [Mass/Vol] 16 mg/dL Normal 7-25 [facility] Comment on above: Performed By: #### L [id number] #### [facility] ([facility]) [address] [place] [address] UREA NITROGEN/CREATININE (MASS RATIO) IN SER/PLAS 21.3 Normal [facility] Comment on above: Performed By: #### L [id number] #### [facility] ([facility]) [address] [place] [address] C-REACTIVE PROTEINon 023 C REACTIVE PROTEIN (MG/L) IN SER/PLAS 2.7 mg/L Normal 0.0-7.0 [facility] Comment on above: Performed By: #### L [id number] #### [facility] ([facility]) [address] [place] [address] CALPROTECTIN STOOLon 05-31- 023 CALPROTECTIN, FECAL 171 ug/g High <=49 [facility] Comment on above: Result Comment: REFE RENCE INTERVAL: Calprotectin, Fecal by Immunoassay Less than 50 ug/g.........Normal 50-120 ug/g...............Borderline elevated, test should be re-evaluated in 4-6 weeks. 121 ug/g or greater.......Elevated Performed By: [facility] [address] [place] [address] Overhead Crane Inspector: Moisés Moreau MD, PhD Performed By: #### L [id number] #### [facility] ([facility]) [address] [place] [address] CBC WITH AUTO DIFFERENTIALon 05-31-2023 Basophils (Bld) [#/Vol] 0.06 10*3/uL Normal 0.00-0.20 [facility] Comment on above: Performed By: #### L [id number] #### [facility] ([facility]) [address] [place] [address] Basophils/100 WBC (Bld) 0.9 % Normal 0.0-1.0 [facility] Comment on above: Performed By: #### L [id number] #### [facility] ([facility]) [address] [place] [address] Eosinophils (Bld) [#/Vol] 0.09 10*3/uL Normal 0.00-0.50 [facility] Comment on above: Performed By: #### L [id number] #### [facility] [address] [place] [address] Eosinophils/100 WBC (Bld) 1.4 % Normal 0.0-6.0 [facility] Comment on above: Performed By: #### L [id number] #### [facility] [address] [place] [address] Erythrocyte distribution width (RBC) [Ratio] 12.7 % Normal 11.5-15.0 [facility] Comment on above: Performed By: #### L [id number] #### [facility] [address] [place] [address] ERYTHROCYTE MEAN CORPUSCULAR HEMOGLOBIN CONCENTRATION (G/DL) BY AUTOMATED 32.2 g/dL Normal 32.0-35.0 [facility] Comment on above: Performed By: #### L [id number] #### [facility] [address] [place] [address] Hematocrit (Bld) [Volume fraction] 37.9 % Normal 36.0-48.0 [facility] Comment on above: Performed By: #### L [id number] #### [facility] ([facility]) [address] [place] [address] Hemoglobin (Bld) [Mass/Vol] 12.2 g/dL Normal 12.0-15.0 [facility] Comment on above: Performed By: #### L [id number] #### [facility] ([facility]) [address] [place] [address] Immature granulocytes (Bld) [#/Vol] 0.02 10*3/uL Normal 0.00-0.20 [facility] Comment on above: Performed By: #### L [id number] #### [facility]) [address] [place] [address] Immature granulocytes/100 WBC (Bld) 0.3 % Normal 0.0-1.0 [facility] Comment on above: Performed By: #### L [id number] #### [facility]) [address] [place] [address] Lymphocytes (Bld) [#/Vol] 2.04 10*3/uL Normal 1.20-4.00 [facility] Comment on above: Performed By: #### L [id number] #### [facility] [address] [place] [address] Lymphocytes/100 WBC (Bld) 31.9 % Normal 20.0-45.0 [facility] Comment on above: Performed By: #### L [id number] #### [facility] [address] [place] [address] MCH (RBC) [Entitic mass] 27.0 pg Normal 27.0-33.0 [facility] Comment on above: Performed By: #### L [id number] #### [facility] ([facility]) [address] [place] [address] MCV (RBC) [Entitic vol] 83.8 fL Normal 82.0-98.0 [facility] Comment on above: Performed By: #### L [id number] #### [facility] ([facility]) [address] [place] [address] Monocytes (Bld) [#/Vol] 0.35 10*3/uL Normal 0.10-1.00 [facility] Comment on above: Performed By: #### L [id number] #### [facility] ([facility]) [address] [place] [address] Monocytes/100 WBC (Bld) 5.5 % Normal 5.0-12.0 [facility] Comment on above: Performed By: #### L [id number] #### [facility] ([facility]) [address] [place] [address] Neutrophils (Bld) [#/Vol] 3.83 10*3/uL Normal 1.60-7.60 [facility] Comment on above: Performed By: #### L [id number] #### [facility] ([facility]) [address] [place] [address] Neutrophils/100 WBC (Bld) 60.0 % Normal 40.0-72.0 [facility] Comment on above: Performed By: #### L [id number] #### [facility] ([facility]) [address] [place] [address] NRBC (PER 100 WBCS) BY AUTOMATED COUNT 0.0 % Normal 0 [facility] Comment on above: Performed By: #### L [id number] #### [facility]) [address] [place] [address] PLATELETS (10*3/UL) IN BLOOD AUTOMATED COUNT 485 10*3/uL High 150-400 [facility] Comment on above: Performed By: #### L [id number] #### [facility] ([facility]) [address] [place] [address] RBC (Bld) [#/Vol] 4.52 10*6/uL Normal 3.80-5.00 [facility] Comment on above: Performed By: #### L [id number] #### [facility] ([facility]) [address] [place] [address] WBC (Bld) [#/Vol] 6.39 10*3/uL Normal 4.00-10.60 [facility] Comment on above: Performed By: #### L [id number] #### [facility] ([facility]) [address] [place] [address] ENTERIC BACTERIA, LIMITED PA RASITE DNA PANELon 05-31-2023 CAMPYLOBACTER SPECIES Negative Normal Negative [facility] Comment on above: Order Comment: Testi [...] the amplified DNA. Performed By: #### L [id number] ####[facility] ([facility])[address] [place] [address] CRYPTOSPORIDIUM (HOMINIS AND PARVUM) Negative Normal Negative [...] the amplified DNA. Performed By: #### L [id number] ####[facility] ([facility])[address] [place] [place] [address] ENTAMOEBA HISTOLYTICA Negative Normal Negative [facility] Comment on above: Order Comment: Testi [...] the amplified DNA. Performed By: #### L [id number] ####[facility])[address] [place] [place] [address] ENTEROTOXIGENIC E. COLI (ETEC) LT/ST Negative Normal Negative [facility] [...] the amplified DNA. Performed By: #### L [id number] ####[facility] ([facility])[address] [place] [address] GIARDIA LAMBLIA Negative Normal Negative [facility] Comment on above: Order Comment: Testi [...] the amplified DNA. Performed By: #### L [id number] ####[facility] ([facility])[address] [place] [address] PLESIOMONAS SHIGELLOIDES Negative Normal Negative [facility] [...] the amplified DNA. Performed By: #### L [id number] ####[facility])[address] [place] [place] [address] SALMONELLA SPECIES Negative Normal Negative [facility] Comment on above: Order Comment: Testi [...] the amplified DNA. Performed By: #### L [id number] ####[facility] ([facility])[address] [place] [address] SHIGA-LIKE TOXIN-PRODUCING E. COLI (STEC) STX1/STX2 Negative Normal Negative [facility] [...] the amplified DNA. Performed By: #### L [id number] ####[facility] ([facility])[address] [place] [address] SHIGELLA SPECIES Negative Normal Negative [facility] Comment on above: Order Comment: Testi [...] the amplified DNA. Performed By: #### L [id number] ####[facility] ([facility])[address] [place] [address] VIBRIO SPECIES Negative Normal Negative [facility] [...] the amplified DNA. Performed By: #### L [id number] ####[facility] ([facility])[address] [place] [address] YERSINIA ENTEROCOLITICA Negative Normal Negative [facility] [...] the amplified DNA. Performed By: #### L [id number] ####[facility])[address] [place] [address] IGAon 05-31-2023 Magnesium [Mass/Vol] 265 mg/dL Normal 60-413 [facility] Comment on above: Performed By: #### L [id number] #### [facility] [address] [place] [address] Labon 05-31-2023 Lab [id number] Darrian Leal en 1970 F Date Provider Department Center 05/31/2023 2244-[facility] MP LAB RESOURCE MP DRAW Medical Pavi No family history on file Normal [facility] Office Visiton 05-31-2023 Follow-up visit [id number] Darrian Leal en 1970 F Date Provider Department Center 05/31/2023 137-LAY, [place] MP GI Medical Pavi No family history on file Level of Service:38288 [place] OFFICE/OUTPATIENT NEW MODERATE MDM 45-59 MINUTES Reason for Visit and Comments: Nausea [70] GERD [854698] Abdominal Pain [740407] New Patient [632] Normal [facility] PANCREATIC ELASTASE, FECALon 05-31-2023 PANCREATIC ELASTASE, FECAL 700 ug/g Normal >=100 [facility] Comment on above: Result Comment: REFE RENCE INTERVAL: Pancreatic Elastase Fecal by Immunoassay Less than 100 ug/g............Severe insufficiency 100 - 199 ug/g................Moderate insufficiency 200 ug/g or greater...........Normal INTERPRETIVE INFORMATION: Pancreatic Elastase Fecal by Immunoassay Reference intervals do not apply for infants less than one month old. Performed by [employer], [facility] [address] [email or web address], Moisés Moreau MD, PHD, Lab. Director Performed By: #### L [id number] #### [facility] [address] [place] [address] SEDIMENTATION RATEon 023 SEDIMENTATION RATE, ERYTHROCYTE 13 mm/hr Normal <=20 [facility] Comment on above: Performed By: #### L [id number] #### [facility] ([place]) [address] [place] [address] TISSUE TRANSGLUTAMINASE, IGA on 05-31-2023 TISSUE TRANSGLUTAMINASE, IGA <2 Normal 0-3 [facility] Comment on above: [...] positive predictive value for disease. Performed By: [employer] [address] [place] [address] Overhead Crane Inspector: Moisés Moreau MD, PhD Performed By: #### L [id number] ####[facility] ([facility])[address] [place] [address] Refillon 05-27-2023 Refill [id number] Darrian Leal 1970 F Date Provider Department Center 05/27/2023 Karli-GIANA MORALES [facility] Gerardo Heal No family history on file Reason for Visit and Comments: Med Refill [[id number]] Normal [facility] Behavioral Health Telemedici neon 05-22-2023 Behavioral Health Telemedicine [id number] Mary Leal 1970 F Date Provider Department Center 05/22/2023 24689-POIARADHA CASTREJON [facility] Gerardo Heal No family history on file Reason for Visit and Comments: Anxiety [9] Pain [136] [facility] Orders Onlyon 05-18-2023 Orders Only [id number] Darrian Leal en 1970 Provider Department Center 05/18/2023 KarliBRITTONGIANA [facility] Gerardo Heal No family history on file [facility] Behavioral Health Telemedici neon 05-17-2023 Behavioral Health Telemedicine [id number] Mary Leal 1970 Provider Department [place] 05/17/2023 167GIANA MORALES [facility] Gerardo Heal No family history on file Level of Service:89782 [place] OFFICE/OUTPATIENT ESTABLISHED MOD MDM 30-39 MIN Reason for Visit and Comments: Telehealth Audio/video Visit [871] Normal [facility] Behavior[facility] Telemedicine [id number] Mary Leal 1970 Provider Department [place] 05/17/2023 35228-CBOBRADHA COVARRUBIAS [facility] Gerardo Heal No family history on file Reason for Visit and Comments: Anxiety [9] MDD (Major Depressive Disorder) [401] Normal [facility] CBC AUTO DIFFon 04-05-2023 BASO # 0.0 103/ul Normal 0.0-0.1 [facility] Comment on above: Performed By: #### L ACT #### [facility] [address] [place] [address] Dr. Mirian Velasco Basophils/100 WBC (Bld) 0.8 % Normal 0.2-2.0 [facility] Comment on above: Performed By: #### L ACT #### [facility] [address] [place] [address] [address] Mirian Velasco EO # 0.1 103/ul Normal 0.0-0.7 [facility] Comment on above: Performed By: #### L ACT #### [facility] [address] [place] [address] Dr. Mirian Velasco Eosinophils/100 WBC (Bld) 1.1 % Normal 0.9-7.0 [facility] Comment on above: Performed By: #### L ACT #### [facility] [address] [place] [address] Dr. Mirian Velasco Erythrocyte distribution width (RBC) [Ratio] 13.1 % Normal 11.0-15.0 [facility] Comment on above: Performed By: #### L ACT #### [facility] [address] [place] [address] Dr. Mirian Velasco Hematocrit (Bld) [Volume fraction] 37.6 % Normal 36.0-48.0 [facility] Comment on above: Performed By: #### L ACT #### [facility] [address] [place] [address] Dr. Mirian Velasco Hemoglobin (Bld) [Mass/Vol] 12.4 g/dL Normal 12.0-16.0 [facility] Comment on above: Performed By: #### L ACT #### [facility] [address] [place] [address] Dr. Mirian Velasco IG # 0.01 10e3/ul Normal 0.00-0.03 [facility] Comment on above: Performed By: #### L ACT #### [facility] [address] [place] [address] Dr. Mirian Velasco IG % 0.2 % Normal 0.0-0.5 [facility] Comment on above: Performed By: #### L ACT #### [facility] [address] [place] [address] Dr. Mirian Velasco LYMPH # 2.5 103/ul Normal 1.2-3.8 [facility] Comment on above: Performed By: #### L ACT #### [facility] [address] [place] [address] Dr. Mirian Velasco Lymphocytes/100 WBC (Bld) 46.2 % Normal 20.5-60.0 [facility] Comment on above: Performed By: #### L ACT #### [facility] [address] [place] [address] Dr. Mirian Velasco MANUAL DIFF REQ NO Normal [facility] Comment on above: Performed By: #### L ACT #### [facility] [address] [place] [address] Dr. Mirian Velasco MCH (RBC) [Entitic mass] 27.1 pg Normal 26.7-34.0 [facility] Comment on above: Performed By: #### L ACT #### [facility] [address] [place] [address] [address] Mirian Velasco MCHC (RBC) [Mass/Vol] 33.0 g/dL Normal 29.9-35.2 [facility] Comment on above: Performed By: #### L ACT #### [facility] [address] [place] [address] Dr. Mirian Velasco MCV (RBC) [Entitic vol] 82.3 fL Normal 81.0-99.0 [facility] Comment on above: Performed By: #### L ACT #### [facility] [address] [place] [address] Dr. Mirian Velasco MONO # 0.4 103/ul Normal 0.3-0.8 [facility] Comment on above: Performed By: #### L ACT #### [facility] [address] [place] [address] Dr. Mirian Velasco Monocytes/100 WBC (Bld) 7.9 % Normal 1.7-12.0 [facility] Comment on above: Performed By: #### L ACT #### [facility] [address] [place] [address] Dr. Mirian Velasco NEUT # 2.3 103/ul Normal 1.4-6.5 [facility] Comment on above: Performed By: #### L ACT #### [facility] [address] [place] [address] Dr. Mirian Velasco Neutrophils/100 WBC (Bld) 43.8 % Normal 43.0-75.0 [facility] Comment on above: Performed By: #### L ACT #### [facility] [address] [place] [address] Dr. Mirian Velasco Platelet mean volume (Bld) [Entitic vol] 9.2 fL Critically low 9.5-13.5 [facility] Comment on above: Performed By: #### L ACT #### [facility] [address] [place] [address] [address] Mirian Velasco PLT 318 103/ul Normal 150-450 [facility] Comment on above: Performed By: #### L ACT #### [facility] [address] [place] [address] [address] Mirian Velasco RBC 4.57 106/ul Normal 4.20-5.40 [facility] Comment on above: Performed By: #### L ACT #### [facility] [address] [place] [address] [address] Mirian Velasco WBC 5.3 103/ul Normal 4.0-11.0 [facility] Comment on above: Performed By: #### L ACT #### [facility] [address] [place] [address] [address] Mirian Velasco PROF CHEM 8 (BAS METB)on Anion gap [Moles/Vol] 19.0 mmol/L Normal [facility] Comment on above: Performed By: #### H FAUSTO, BMP ####[facility] [id number] [place] [address]DrReno Velasco Calcium [Mass/Vol] 9.6 mg/dL Normal 8.5-10.1 [facility] Comment on above: Performed By: #### Sukumar LAMBERT, BMP ####[facility] [id number] [place] [address]DrReno Velasco Chloride [Moles/Vol] 103 mmol/L Normal 98-107 [facility] Comment on above: Performed By: #### H FAUSTO, BMP ####[facility] [address] [place] [address]DrReno Velasco CO2 [Moles/Vol] 23.1 mmol/L Normal 21.0-32.0 [facility] Comment on above: Performed By: #### H FAUSTO, BMP ####[facility] [address] [place] [address]DrReno Velasco Creatinine [Mass/Vol] 0.84 mg/dL Normal 0.55-1.02 [facility] Comment on above: Performed By: #### H FAUSTO, BMP ####[facility] [address] [place] [id number]. Mirian Velasco EGFR-AF LIBERIAN >60 Normal >=60 [facility] Comment on above: Performed By: #### H FAUSTO, BMP ####[facility] [address] [place] [id number]. Mirian Velasco EGFR-NON AF LIBERIAN >60 Normal >=60 [facility] Comment on above: Performed By: #### H FAUSTO, BMP ####[facility] [address] [place] [id number]. Mirian Velasco Glucose [Mass/Vol] 129 mg/dL Critically high 74-106 [facility] Comment on above: Performed By: #### H FAUSTO, BMP ####[facility] [address] [place] [id number]. Mirian Velasco Potassium [Moles/Vol] 3.1 mmol/L Critically low 3.5-5.1 [facility] Comment on above: Performed By: #### H FAUSTO, BMP ####[facility] [address] [place] [id number]. Mirian Velasco Sodium [Moles/Vol] 142 mmol/L Normal 136-145 [facility] Comment on above: Performed By: #### H FAUSTO, BMP ####[facility] [address] [place] [id number]. Mirian Velasco Urea nitrogen [Mass/Vol] 12.0 mg/dL Normal 7.0-18.0 [facility] Comment on above: Performed By: #### H FAUSTO, BMP ####[facility] [address] [place] [id number]. Mirian Velasco Urea nitrogen/Creatinine [Mass ratio] 14.3 mg/mg Normal [facility] Comment on above: Performed By: #### H FAUSTO, BMP ####[facility] [address] [place] [address]Dr. Mirian Velasco TROPONIN, HIGH SENSITIVITYon 04-05-2023 HSTROP 5.6 pg/mL Normal 4.0-51.3 [facility] Comment on above: Result Comment: CUT- OFF POINTS HAVE BEEN ESTABLISHED BASED ON THE FOURTH UNIVERSAL DEFINITIONS OF MYOCARDIAL INFARCTION. THE UPPER REFERENCE LIMIT (URL) OF TROPONIN, DEFINED THE 99TH PERCENTILE OF cTnI DISTRIBUTION IN A REFERENCE POPULATION, HAS BEEN CONFIRMED THE DECISION THRESHOLD FOR [place] DIAGNOSIS. Performed By: #### H STROPN, BMP ####[facility] [address] [place], [place] [address]WsDr. Mirian Velasco CBC AUTO DIFFon 03-06-2023 BASO # 0.1 103/ul Normal 0.0-0.1 [facility] Comment on above: Performed By: #### L ACT #### [facility] [address] [address] [address] Mirian Velasco Basophils/100 WBC (Bld) 0.8 % Normal 0.2-2.0 [facility] Comment on above: Performed By: #### L ACT #### [facility] [address] [address] [address] Mirian Velasco EO # 0.1 103/ul Normal 0.0-0.7 [facility] Comment on above: Performed By: #### L ACT #### [facility] [address] [address] [address] Mirian Velasco Eosinophils/100 WBC (Bld) 1.4 % Normal 0.9-7.0 [facility] Comment on above: Performed By: #### L ACT #### [facility] [address] [address] [address] Mirian Velasco Erythrocyte distribution width (RBC) [Ratio] 13.1 % Normal 11.0-15.0 [facility] Comment on above: Performed By: #### L ACT #### [facility] [address] [address] [address] Mirian Velasco Hematocrit (Bld) [Volume fraction] 37.9 % Normal 36.0-48.0 [facility] Comment on above: Performed By: #### L ACT #### [facility] [address] [address] [address] Mirian Velasco Hemoglobin (Bld) [Mass/Vol] 12.7 g/dL Normal 12.0-16.0 [facility] Comment on above: Performed By: #### L ACT #### [facility] [address] [place] [address] Dr. Mirian Velasco IG # 0.01 10e3/ul Normal 0.00-0.03 [facility] Comment on above: Performed By: #### L ACT #### [facility] [address] [place] [address] Dr. Mirian Velasco IG % 0.2 % Normal 0.0-0.5 [facility] Comment on above: Performed By: #### L ACT #### [facility] [address] [place] [address] Dr. Mirian Velasco LYMPH # 1.8 103/ul Normal 1.2-3.8 [facility] Comment on above: Performed By: #### L ACT #### [facility] [address] [place] [address] Dr. Mirian Velasco Lymphocytes/100 WBC (Bld) 27.2 % Normal 20.5-60.0 [facility] Comment on above: Performed By: #### L ACT #### [facility] [address] [place] [address] Dr. Mirian Velasco MANUAL DIFF REQ NO Normal [facility] Comment on above: Performed By: #### L ACT #### [facility] [address] [place] [address] Dr. Mirian Velasco MCH (RBC) [Entitic mass] 27.5 pg Normal 26.7-34.0 [facility] Comment on above: Performed By: #### L ACT #### [facility] [address] [place] [address] Dr. Mirian Velasco MCHC (RBC) [Mass/Vol] 33.5 g/dL Normal 29.9-35.2 [facility] Comment on above: Performed By: #### L ACT #### [facility] [address] [place] [address] Dr. Mirian Velasco MCV (RBC) [Entitic vol] 82.0 fL Normal 81.0-99.0 [facility] Comment on above: Performed By: #### L ACT #### [facility] [address] [place] [address] Dr. Mirian Velasco MONO # 0.4 103/ul Normal 0.3-0.8 [facility] Comment on above: Performed By: #### L ACT #### [facility] [address] [address] [address] Mirian Velasco Monocytes/100 WBC (Bld) 5.5 % Normal 1.7-12.0 [facility] Comment on above: Performed By: #### L ACT #### [facility] [address] [place] [address] Dr. Mirian Velasco NEUT # 4.3 103/ul Normal 1.4-6.5 [facility] Comment on above: Performed By: #### L ACT #### [facility] [address] [place] [address] Dr. Mirian Velasco Neutrophils/100 WBC (Bld) 64.9 % Normal 43.0-75.0 [facility] Comment on above: Performed By: #### L ACT #### [facility] [address] [place] [address] Dr. Mirian Velasco Platelet mean volume (Bld) [Entitic vol] 9.4 fL Critically low 9.5-13.5 [facility] Comment on above: Performed By: #### L ACT #### [facility] [address] [place] [address] Dr. Mirian Velasco PLT 317 103/ul Normal 150-450 [facility] Comment on above: Performed By: #### L ACT #### [facility] [address] [place] [address] Dr. Mirian Velasco RBC 4.62 106/ul Normal 4.20-5.40 [facility] Comment on above: Performed By: #### L ACT #### [facility] [address] [place] [address] Dr. Mirian Velasco WBC 6.6 103/ul Normal 4.0-11.0 [facility] Comment on above: Performed By: #### L ACT #### [facility] [address] [place] [address] Dr. Mirian Velasco CULTURE BLOODon 03-06-2023 Microscopic examination of blood, culture Culture Observations: NO GROWTH AT 5 DAYS. Normal [facility] Comment on above: Performed By: #### B LDCX2 ####[facility] [address] [place] [address]Dr. Mirian Velasco Microscopic examination of blood, culture Culture Observations: NO GROWTH AT 5 DAYS. Normal [facility] Comment on above: Performed By: #### B LDCX1 #### [facility] [address] [address] [address] Mirian Velasco LACTATE/LACTIC ACIDon 2022 Lactate [Moles/Vol] 2.2 mmol/L Critically high 0.4-2.0 [facility] Comment on above: Performed By: #### L ACT #### [facility] [address] [place] [address] Dr. Mirian Velasco LIPASEon 03-06-2023 Lipase [Catalytic activity/Vol] 53.0 U/L Critically low 73.0-393.0 [facility] Comment on above: Performed By: #### L ACT #### [facility] [address] [address] [address] Mirian Velasco PROF 14(COMP METB)on 023 Albumin [Mass/Vol] 3.4 g/dL Normal 3.4-5.0 [facility] Comment on above: Performed By: #### L ACT #### [facility] [address] [place] [address] Dr. Mirian Velasco Albumin/Globulin [Mass ratio] 1.0 {ratio} Normal [facility] Comment on above: Performed By: #### L ACT #### [facility] [address] [address] [address] Mirian Velasco ALP [Catalytic activity/Vol] 123 U/L Critically high 46-116 [facility] Comment on above: Performed By: #### L ACT #### [facility] [address] [place] [address] Dr. Mirian Velasco ALT [Catalytic activity/Vol] 33 U/L Normal 14-59 [facility] Comment on above: Performed By: #### L ACT #### [facility] [address] [address] [address] Mirian Velasco Anion gap [Moles/Vol] 13.1 mmol/L Normal [facility] Comment on above: Performed By: #### L ACT #### [facility] [address] [address] [address] Mirian Velasco AST [Catalytic activity/Vol] 31 U/L Normal 15-37 [facility] Comment on above: Performed By: #### L ACT #### [facility] [address] [address] [address] Mirian Velasco Bilirubin [Mass/Vol] 0.3 mg/dL Normal 0.2-1.0 [facility] Comment on above: Performed By: #### L ACT #### [facility] [address] [address] [address] Mirian Velacso Calcium [Mass/Vol] 8.9 mg/dL Normal 8.5-10.1 [facility] Comment on above: Performed By: #### L ACT #### [facility] [address] [address] [address] Mirian Velasco Chloride [Moles/Vol] 107 mmol/L Normal 98-107 [facility] Comment on above: Performed By: #### L ACT #### [facility] [address] [address] [address] Mirian Velasco CO2 [Moles/Vol] 25.6 mmol/L Normal 21.0-32.0 [facility] Comment on above: Performed By: #### L ACT #### [facility] [address] [address] [address] Mirian Velasco Creatinine [Mass/Vol] 0.70 mg/dL Normal 0.55-1.02 [facility] Comment on above: Performed By: #### L ACT #### [facility] [address] [address] [address] Mirian Velasco EGFR-AF LIBERIAN >60 Normal >=60 [facility] Comment on above: Performed By: #### L ACT #### [facility] [address] [address] [address] Mirian Velasco EGFR-NON AF LIBERIAN >60 Normal >=60 [facility] Comment on above: Performed By: #### L ACT #### [facility] [address] [address] [address] Mirian Velasco Globulin (S) [Mass/Vol] 3.4 g/dL Normal [facility] Comment on above: Performed By: #### L ACT #### [facility] [address] [address] [address] Mirian Velasco Glucose [Mass/Vol] 125 mg/dL Critically high 74-106 [facility] Comment on above: Performed By: #### L ACT #### [facility] [address] [place] [address] Dr. Mirian Velasco Potassium [Moles/Vol] 3.7 mmol/L Normal 3.5-5.1 [facility] Comment on above: Performed By: #### L ACT #### [facility] [address] [place] [address] Dr. Mirian Velasco Protein [Mass/Vol] 6.8 g/dL Normal 6.4-8.2 [facility] Comment on above: Performed By: #### L ACT #### [facility] [address] [place] [address] Dr. Mirian Velasco Sodium [Moles/Vol] 142 mmol/L Normal 136-145 [facility] Comment on above: Performed By: #### L ACT #### [facility] [address] [place] [address] Dr. Mirian Velasco Urea nitrogen [Mass/Vol] 16.0 mg/dL Normal 7.0-18.0 [facility] Comment on above: Performed By: #### L ACT #### [facility] [address] [place] [address] Dr. Mirian Velasco Urea nitrogen/Creatinine [Mass ratio] 22.9 mg/mg Normal [facility] Comment on above: Performed By: #### L ACT #### [facility] [address] [place] [address] Dr. Mirian Velasco PROTIMEon 03-06-2023 INR Coag (PPP) [Relative time] {INR} Normal [facility] Comment on above: Performed By: #### P T #### [facility] [address] [place] [address] Dr. Mirian Velasco INR GUIDELINES SEE BELOW Normal [facility] Comment on above: Result Comment: SAMEER RED INR: 2.0 - 3.0 CONDITIONS NOT LISTED BELOW 2.5 - 3.5 FOR PROSTHETIC HEART VALVE REPLACEMENT 2.5 - 3.5 RECURRENT THROMBOSIS Performed By: #### P T #### [facility] [address] [address] [address] Mirian Velasco PT Coag (PPP) [Time] 9.8 s Normal 9.0-11.6 [facility] Comment on above: Performed By: #### P T #### [facility] [address] [place] [address] Dr. Mirian Velasco TROPONIN, HIGH SENSITIVITYon 03-06-2023 HSTROP 4.4 pg/mL Normal 4.0-51.3 [facility] Comment on above: Result Comment: CUT- OFF POINTS HAVE BEEN ESTABLISHED BASED ON THE FOURTH UNIVERSAL DEFINITIONS OF MYOCARDIAL INFARCTION. THE UPPER REFERENCE LIMIT (URL) OF TROPONIN, DEFINED THE 99TH PERCENTILE OF cTnI DISTRIBUTION IN A REFERENCE POPULATION, HAS BEEN CONFIRMED THE DECISION THRESHOLD FOR [place] DIAGNOSIS. Performed By: #### L ACT #### [facility] [address] [place] [address] Dr. Mirian Velasco Bacteria identified Aer cx N om (Unsp spec)Ordered By: Niecy Duron on 03-02-2023 Superficial Wound Culture Methicillin Resis Staph Aureus [facility] Superficial Wound Cultureon 03-02-2023 Superficial Wound Culture ORGANISM: Methicillin Resis Staph Aureus (O:MRSA) Quantity of Growth Heavy Growth Aerobic CORRINA Charge (PCMIC38) --- SUSCEPTIBILITY -- ORGANISM: O:MRSA ANTIBIOTIC INTERPRETATION CORRINA Azithromycin S <2 Ceftaroline S <0.5 Ciprofloxacin S <1 Clindamycin S 0.5 Daptomycin S 1 Linezolid S 4 Oxacillin R >2 Penicillin R 2 Tetracycline S <4 Trimethoprim/Sulfameth oxazole S <0.5 Vancomycin S 2 S = [...] RESISTANT TO ALL B-LACTAM DRUGS. PERFORMED BY: [place] [address] PATHOLOGIST LINE ASSEMBLER [employer] LEVAR CASE M.D. Normal [facility] Comment on above: Performed By: #### C USUP #### [address] LSPINE WO CONon 3 CT LSC[place]KE[place] WO CON EXAM: CT scan of the [...] by: NANCY BELLE Date: 2023-02-19 06:42 Normal [facility] XR ESOPHAGRAMon 12-26-2022 [facility] NURSING PROGon 12-08-2022 NURSING PROG HNO ID: [id number] Author: Lisa Contreras, MAKI Service: Nursing Author Type: Registered Nurse Type: Nursing Progress Note Filed: 12/08/2022 11:28 AM Note Text: [facility] POST PROCEDURE FOLLOW UP CALL [phone] (home) Date Phone Call Made: 12/08/2022 Attempt: [...] experience more pleasant? No Lisa Contreras, RN [facility] ANES POSTPROC EVALon 023 ANES POSTPROC EVAL HNO ID: [id number] Author: Andres Sheets DO Service: Anesthesiology Author Type: Anesthesiologist Type: Anesthesia Postprocedure Evaluation Filed: 12/07/2022 12:44 PM Note Text: POST ANESTHESIA EVALUATION NOTE : 1970 Procedure Summary Date: 12/07/22 Room / Location: [facility] Anesthesia Start: 1034 Anesthesia Stop: 1055 [...] December 07, 2022 TIME: 12:44 PM CSN: [id number] [facility] ANES PRE-OPon 12-07-2022 ANES PRE-OP HNO ID: [id number] Author: Andres Sheets DO Service: Anesthesiology Author Type: Anesthesiologist Type: Anesthesia Preprocedure Evaluation Filed: 12/07/2022 9:42 AM Note Text: ANESTHESIOLOGY DAY OF SURGERY NOTE : 1970 Procedure Information Date/Time: 12/07/22 1030 Scheduled providers: Winston Hannah DO Procedures: EGD - THERAPEUTIC, EUS, OR TUBE INTERVENTIONS PH MONTIEL INSERT OFF MEDS Location: [facility] Estimated body mass index is 24.55 [...] the AM and 4 mg PM - fluticasone-umeclidin- vilanter (TRELEGY ELLIPTA) 100-62.5-25 mcg Inhale 1 Puff [...] December 07, 2022 TIME: 9:40 AM CSN: [id number] [facility] HISTORY PHYSICALon HISTORY PHYSICAL HNO ID: [id number] Author: Soraida Mathis PA-C Service: Gastroenterology Author Type: Physician Drilling Superintendent Type: HANDP Filed: 12/07/2022 9:48 AM Note [...] PAIN, N/V/D Medication reconciliation list reviewed in [facility]. Past medical history, past surgical history, social history and family history reviewed and updated in [facility]. ALLERGIES Allergies: Risperidone Intolerance Comment:Breast discharge SEE [facility] BP 109/74 Pulse [...] Mary Leal DATE: 12/07/2022 TIME: 9:41 AM [facility] Upper GI endoscopyon 023 Upper GI endoscopy [facility] Gastrointestinal Endoscopy Patient Name: Mary Leal [...] by the physician, the nurse and the topper press operator in the pre-procedure area in the endoscopy [...] previously scheduled. Procedure Code(s): --- Professional --- 94688, Esophagogastroduodenos copy, flexible, transoral; with dilation of gastric/duodenal stricture(s) (eg, balloon, bougie) Diagnosis Code(s): --- Professional --- K21.00, Gastro-esophageal reflux disease with esophagitis, without bleeding K31.84, Gastroparesis CPT copyright 2020 [employer]. All rights reserved. The codes documented in this report are preliminary and upon hospital carrier review may be revised to meet current compliance requirements. Attending Participation: I personally performed the entire procedure. Scope In: 10:39:12 AM Scope Out: 10:46:13 AM MD Winston Diaz MD 12/07/2022 10 (more content not included)... Normal [facility] ANES POSTPROC EVALon 023 ANES POSTPROC EVAL HNO ID: [id number] Author: Annabel Burton MD Service: Anesthesiology Author Type: Physician Type: Anesthesia Postprocedure Evaluation Filed: 12/05/2022 2:01 PM Note Text: POST ANESTHESIA EVALUATION NOTE : 1970 Procedure Summary Date: 12/05/22 Room / Location: [facility] Anesthesia Start: 900 Anesthesia Stop: 917 [...] December 05, 2022 TIME: 2:00 PM CSN: [id number] Normal [facility] ANES PRE-OPon 12-05-2022 ANES PRE-OP HNO ID: [id number] Author: Annabel Burton MD Service: Anesthesiology Author Type: Physician Type: Anesthesia Preprocedure Evaluation Filed: 12/05/2022 8:28 AM Note Text: ANESTHESIOLOGY DAY OF SURGERY NOTE : 1970 Procedure Information Date/Time: 12/05/22 0900 Scheduled providers: Isra Masters DO Procedure: SIGMOIDOSCOPY Location: [facility] Estimated body mass index is 24.55 [...] the AM and 4 mg PM - fluticasone-umeclidin- vilanter (TRELEGY ELLIPTA) 100-62.5-25 mcg Inhale 1 Puff [...] December 05, 2022 TIME: 8:26 AM CSN: [id number] Normal [facility] Flexible Sigmoidoscopyon Flexible sigmoidoscopy [facility] Gastrointestinal Endoscopy Patient Name: Mary Leal Procedure Date: 12/05/2022 8:55 AM Date of : 1970 Admit Type: Outpatient Age: 52 Room: [place] [address] Gender: Female Note Status: Finalized Attending MD: [...] present medications. Procedure Code(s): --- Professional --- 75654, 52, Sigmoidoscopy, flexible; diagnostic, including collection of specimen(s) by brushing or washing, when performed (separate procedure) Diagnosis Code(s): --- Professional --- K59.00, Constipation, unspecified CPT copyright 2020 [employer]. All rights reserved. The codes documented in this report are preliminary and upon hospital carrier review may be revised to meet current compliance requirements. Attending Participation: I personally performed the entire procedure. Scope In: 9:07:04 AM Scope Out: 9:09:45 AM DO Isra Chen DO 12/05/2022 9:13:05 AM This report has been signed electronically by Isra Masters DO Number of Addenda: 0 Note Initiated On: 12/05/2022 8:55 AM Estimated Blood Loss: Estimated blood loss: none. Normal [facility] HISTORY PHYSICALon HISTORY PHYSICAL HNO ID: [id number] Author: Lashanda Dorado PA-C Service: Gastroenterology Author Type: Physician Drilling Superintendent Type: HANDP Filed: 12/05/2022 8:43 AM Note [...] PAIN, N/V/D Medication reconciliation list reviewed in [facility]. Past medical history, past surgical history, social history and family history reviewed and updated in [facility]. ALLERGIES Allergies: Risperidone Intolerance Comment:Breast discharge SEE [facility] There were no [...] Leal DATE: 12/05/2022 TIME: 8:42 AM Normal [facility] NURSING PROGon 12-05-2022 NURSING PROG HNO ID: [id number] Author: Lisa Contreras, MAKI Service: ? Author Type: Registered Nurse Type: Nursing Progress Note Filed: 12/05/2022 1:07 PM Note Text: [facility] ENDOSCOPY PRE PROCEDURE CALL Akiko. I'm calling from [facility] endoscopy to provide you with the information for your surgery/procedure tomorrow. 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 tbd What is the best number for your power screwdriver operator to be reached at tomorrow for updates? tbd Your power screwdriver operator is allowed to wait here with [...] Do not wear makeup, lotion, or finger [place]. yes Patient instructed: Please bring a list [...] given Any barriers to Patient learning (confusion? Sous Chef needed?): Patient/Patient [employer] Special [employer] Teacher responded appropriately on phone. If patient needs to reschedule please call: [phone] [facility] phone number: [phone] Type of instruction given: Verbal by telephone contact. Normal [facility] NURSING PROGon 12-02-2022 NURSING PROG HNO ID: [id number] Author: Isra Harman RN Service: ? Author Type: Registered Nurse Type: Nursing Progress Note Filed: 12/02/2022 10:54 AM Note Text: [facility] ENDOSCOPY PRE PROCEDURE CALL Akiko. I'm calling from [facility] endoscopy to provide you with the information for your surgery/procedure tomorrow. Spoke to: Patient CONFIRM Procedure Planned with patient: Are you familiar with where [facility] is located?yes Address [address] [place] [address] Patient instructed to enter through the main hospital entrance off [address] at [address] through the revolving doors and check in at the main desk with your power screwdriver operator's license and insurance card. 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 Rich What is the best number for your power screwdriver operator to be reached at tomorrow for updates? 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 yes Patient instructed: Please bring a list [...] given Any barriers to Patient learning (confusion? Sous Chef needed?): Patient/Patient [employer] responded appropriately on phone. If patient needs to reschedule please call: [phone] [facility] phone number: [phone] Type of instruction given: Verbal by telephone contact. Normal [facility] AMYLASEon 10-20-2022 Amylase [Catalytic activity/Vol] 33 U/L Normal 25-115 [facility] Comment on above: Performed By: #### L ACT #### [facility] [address] [address] [address] Mirian Velasco CBC AUTO DIFFon 10-20-2022 BASO # 0.0 103/ul Normal 0.0-0.1 [facility] Comment on above: Performed By: #### P T #### [facility] [address] [address] [address] Mirian Velasco Basophils/100 WBC (Bld) 0.2 % Normal 0.2-2.0 [facility] Comment on above: Performed By: #### P T #### [facility] [address] [address] [address] Mirian Velasco EO # 0.1 103/ul Normal 0.0-0.7 [facility] Comment on above: Performed By: #### P T #### [facility] [address] [address] [address] Mirian Velasco Eosinophils/100 WBC (Bld) 0.6 % Critically low 0.9-7.0 [facility] Comment on above: Performed By: #### P T #### [facility] [address] [place] [address] Dr. Mirian Velasco Erythrocyte distribution width (RBC) [Ratio] 13.6 % Normal 11.0-15.0 [facility] Comment on above: Performed By: #### P T #### [facility] [address] [address] [address] Mirian Velasco Hematocrit (Bld) [Volume fraction] 41.0 % Normal 36.0-48.0 [facility] Comment on above: Performed By: #### P T #### [facility] [address] [address] [address] Mirian Velasco Hemoglobin (Bld) [Mass/Vol] 13.5 g/dL Normal 12.0-16.0 [facility] Comment on above: Performed By: #### P T #### [facility] [address] [address] [address] Mirian Velasco IG # 0.06 10e3/ul Critically high 0.00-0.03 [facility] Comment on above: Performed By: #### P T #### [facility] [address] [address] [address] Mirian Velasco IG % 0.4 % Normal 0.0-0.5 [facility] Comment on above: Performed By: #### P T #### [facility] [address] [place] [address] Dr. Mirian Velasco LYMPH # 2.5 103/ul Normal 1.2-3.8 [facility] Comment on above: Performed By: #### P T #### [facility] [address] [place] [address] Dr. Mirian Velasco Lymphocytes/100 WBC (Bld) 17.5 % Critically low 20.5-60.0 [facility] Comment on above: Performed By: #### P T #### [facility] [address] [place] [address] Dr. Mirian Velasco MANUAL DIFF REQ NO Normal [facility] Comment on above: Performed By: #### P T #### [facility] [address] [place] [address] Dr. Mirian Velasco MCH (RBC) [Entitic mass] 28.1 pg Normal 26.7-34.0 [facility] Comment on above: Performed By: #### P T #### [facility] [address] [place] [address] Dr. Mirian Velasco MCHC (RBC) [Mass/Vol] 32.9 g/dL Normal 29.9-35.2 [facility] Comment on above: Performed By: #### P T #### [facility] [address] [place] [address] Dr. Mirian Velasco MCV (RBC) [Entitic vol] 85.2 fL Normal 81.0-99.0 [facility] Comment on above: Performed By: #### P T #### [facility] [address] [place] [address] Dr. Mirian Velasco MONO # 0.7 103/ul Normal 0.3-0.8 [facility] Comment on above: Performed By: #### P T #### [facility] [address] [place] [address] Dr. Mirian Velasco Monocytes/100 WBC (Bld) 4.5 % Normal 1.7-12.0 [facility] Comment on above: Performed By: #### P T #### [facility] [address] [place] [address] Dr. Mirian Velasco NEUT # 11.0 103/ul Critically high 1.4-6.5 [facility] Comment on above: Performed By: #### P T #### [facility] [address] [place] [address] Dr. Mirian Velasco Neutrophils/100 WBC (Bld) 76.8 % Critically high 43.0-75.0 [facility] Comment on above: Performed By: #### P T #### [facility] [address] [place] [address] Dr. Mirian Velasco Platelet mean volume (Bld) [Entitic vol] 8.7 fL Critically low 9.5-13.5 [facility] Comment on above: Performed By: #### P T #### [facility] [address] [place] [address] Dr. Mirian Velasco PLT 390 103/ul Normal 150-450 [facility] Comment on above: Performed By: #### P T #### [facility] [address] [place] [address] Dr. Mirian Velasco RBC 4.81 106/ul Normal 4.20-5.40 [facility] Comment on above: Performed By: #### P T #### [facility] [address] [place] [address] Dr. Mirian Velasco WBC 14.3 103/ul Critically high 4.0-11.0 [facility] Comment on above: Performed By: #### P T #### [facility] [address] [place] [address] ABD/PELV W CONon 10-20-20 CT ABD/PELV W CON EXAMINATION: CT ABD/PELV W CON HISTORY: GENERALIZED ABDOMINAL PAIN COMPARISON: [...] SALMA AMEZQUITA Date: 2022-10-20 12:35 Normal [facility] CULTURE BLOODon 10-20-2022 Microscopic examination of blood, culture Culture Observations: NO GROWTH AT 5 DAYS. Normal [facility] Comment on above: Performed By: #### B [id number] ####[facility] [id number] [place], [place] [id number]. Mirian Velasco Microscopic examination of blood, culture Culture Observations: NO GROWTH AT 5 DAYS. Normal [facility] Comment on above: Performed By: #### B LDCX1 #### [facility] [address] [place], [place] [address] Dr. 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 NO POTENTIAL PATHOGENS SEEN. Normal [facility] Comment on above: Performed By: #### U RCX #### [facility] [address] [address] [address] Mirian Velasco ER URINE PROFILEon 2 Bilirubin Ql (U) Negative Normal NEGATIVE [facility] Comment on above: Performed By: #### P T #### [facility] [address] [place] [address] Dr. Mirian Velasco Clarity (U) CLEAR Normal CLEAR [facility] Comment on above: Performed By: #### P T #### [facility] [address] [place] [address] Dr. Mirian Velasco Color (U) LT. YELLOW Normal YELLOW [facility] Comment on above: Performed By: #### P T #### [facility] [address] [place] [address] Dr. Mirian KING A micrscopic examination will be performed if indicated. Normal [facility] Comment on above: Performed By: #### P T #### [facility] [address] [place] [address] Dr. Mirian Velasco Glucose Ql (U) Negative Normal NEGATIVE [facility] Comment on above: Performed By: #### P T #### [facility] [address] [place] [address] Dr. Mirian Velasco Hemoglobin Ql (U) Negative Normal NEGATIVE [facility] Comment on above: Performed By: #### P T #### [facility] [address] [place] [address] Dr. Mirian Velasco Ketones Ql (U) Negative Normal NEGATIVE [facility] Comment on above: Performed By: #### P T #### [facility] [address] [place] [address] Dr. Mirian Velasco LEUKOCYTES SMALL Abnormal NEGATIVE [facility] Comment on above: Performed By: #### P T #### [facility] [address] [place] [address] Dr. Mirian Velasco Nitrite Ql (U) Negative Normal NEGATIVE [facility] Comment on above: Performed By: #### P T #### [facility] [address] [place] [address] Dr. Mirian Velasco pH (U) 7.0 [pH] Normal 5-9 [facility] Comment on above: Performed By: #### P T #### [facility] [address] [place] [address] Dr. Mirian Velasco SPEC GRAVITY 1.015 Normal 1.005-<=1.025 [facility] Comment on above: Performed By: #### P T #### [facility] [address] [place] [address] Dr. Mirian Velasco UA PROTEIN Negative Normal NEGATIVE/ TRACE [facility] Comment on above: Performed By: #### P T #### [facility] [address] [place] [address] Dr. Mirian Velasco UR MICRO IND INDICATED Normal [facility] Comment on above: Performed By: #### P T #### [facility] [address] [place] [address] Dr. Mirian Velasco Urobilinogen Qn (U) 0.2 {Lyubov'U}/dL Normal 0.2 - 1. 0 [facility] Comment on above: Performed By: #### P T #### [facility] [address] [place] [address] Dr. Mirian Velasco LACTATE/LACTIC ACIDon 2021 Lactate [Moles/Vol] 1.3 mmol/L Normal 0.4-1.9 [facility] Comment on above: Performed By: #### L ACT #### [facility] [address] [place] [address] Dr. Mirian Velasco LIPASEon 10-20-2022 Lipase [Catalytic activity/Vol] 49.0 U/L Critically low 73.0-393.0 [facility] Comment on above: Performed By: #### P T #### [facility] [address] [place] [address] Dr. Mirian Velasco PROF 14(COMP METB)on 022 Albumin [Mass/Vol] 3.2 g/dL Critically low 3.4-5.0 [facility] Comment on above: Performed By: #### P T #### [facility] [address] [place] [address] Dr. Mirian Velasco Albumin/Globulin [Mass ratio] 0.9 {ratio} Normal [facility] Comment on above: Performed By: #### P T #### [facility] [address] [address] [address] Mirian Velasco ALP [Catalytic activity/Vol] 129 U/L Critically high 46-116 [facility] Comment on above: Performed By: #### P T #### [facility] [address] [place] [address] Dr. Mirian Velasco ALT [Catalytic activity/Vol] 25 U/L Normal 14-59 [facility] Comment on above: Performed By: #### P T #### [facility] [address] [place] [address] Dr. Mirian Velasco Anion gap [Moles/Vol] 10.7 mmol/L Normal [facility] Comment on above: Performed By: #### P T #### [facility] [address] [place] [address] Dr. Mirian Velasco AST [Catalytic activity/Vol] 20 U/L Normal 15-37 [facility] Comment on above: Performed By: #### P T #### [facility] [address] [place] [address] Dr. Mirian Velasco Bilirubin [Mass/Vol] 0.5 mg/dL Normal 0.2-1.0 [facility] Comment on above: Performed By: #### P T #### [facility] [address] [place] [address] Dr. Mirian Velasco Calcium [Mass/Vol] 9.2 mg/dL Normal 8.5-10.1 [facility] Comment on above: Performed By: #### P T #### [facility] [address] [place] [address] Dr. Mirian Velasco Chloride [Moles/Vol] 102 mmol/L Normal 98-107 [facility] Comment on above: Performed By: #### P T #### [facility] [address] [place] [address] Dr. Mirian Velasco CO2 [Moles/Vol] 30.0 mmol/L Normal 21.0-32.0 [facility] Comment on above: Performed By: #### P T #### [facility] [address] [place] [address] Dr. Mirian Velasco Creatinine [Mass/Vol] 0.68 mg/dL Normal 0.55-1.02 [facility] Comment on above: Performed By: #### P T #### [facility] [address] [address] [address] Mirian Velasco EGFR-AF LIBERIAN >60 Normal >=60 [facility] Comment on above: Performed By: #### P T #### [facility] [address] [address] [address] Mirian Velasco EGFR-NON AF LIBERIAN >60 Normal >=60 [facility] Comment on above: Performed By: #### P T #### [facility] [address] [address] [address] Mirian Velasco Globulin (S) [Mass/Vol] 3.7 g/dL Normal [facility] Comment on above: Performed By: #### P T #### [facility] [address] [place] [address] Dr. Mirian Velasco Glucose [Mass/Vol] 109 mg/dL Critically high 74-106 [facility] Comment on above: Performed By: #### P T #### [facility] [address] [address] [address] Mirian Velasco Potassium [Moles/Vol] 3.7 mmol/L Normal 3.5-5.1 [facility] Comment on above: Performed By: #### P T #### [facility] [address] [address] [address] Mirian Velasco Protein [Mass/Vol] 6.9 g/dL Normal 6.4-8.2 [facility] Comment on above: Performed By: #### P T #### [facility] [address] [address] [address] Mirian Velasco Sodium [Moles/Vol] 139 mmol/L Normal 136-145 [facility] Comment on above: Performed By: #### P T #### [facility] [address] [place] [address] Dr. Mirian Velasco Urea nitrogen [Mass/Vol] 13.0 mg/dL Normal 7.0-18.0 [facility] Comment on above: Performed By: #### P T #### [facility] [address] [address] [address] Mirian Velasco Urea nitrogen/Creatinine [Mass ratio] 19.1 mg/mg Normal [facility] Comment on above: Performed By: #### P T #### [facility] [address] [place] [address] Dr. Mirian Velasco URINE MICROSCOPIC ONLYon BACTERIA TRACE Abnormal NONE SEEN [facility] Comment on above: Performed By: #### P T #### [facility] [address] [place] [address] Dr. Mirian Velasco Bacteria identified Cx Nom (U) INDICATED Normal [facility] Comment on above: Performed By: #### P T #### [facility] [address] [place] [address] Dr. Mirian Velasco CAST NONE SEEN Normal NONE SEEN [facility] Comment on above: Performed By: #### P T #### [facility] [address] [place] [address] Dr. Mirian Velasco Crystals LM Nom (Urine sed) NONE SEEN Normal NONE SEEN [facility] Comment on above: Performed By: #### P T #### [facility] [address] [place] [address] Dr. Mirian Velasco Epithelial cells LM Ql (Urine sed) MODERATE Abnormal NONE SEEN /RARE [facility] Comment on above: Performed By: #### P T #### [facility] [address] [place] [address] Dr. Mirian Velasco MUCOUS NONE SEEN Normal NONE SEEN [facility] Comment on above: Performed By: #### P T #### [facility] [address] [place] [address] Dr. Mirian Velasco RBC NONE SEEN Abnormal 0-2 [facility] Comment on above: Performed By: #### P T #### [facility] [address] [place] [address] Dr. Mirian Velasco WBC 2-5 Abnormal NONE SEEN [facility] Comment on above: Performed By: #### P T #### [facility] [address] [place], [place] [address] Dr. Mirian Velasco YEAST PRESENT Abnormal NONE SEEN [facility] Comment on above: Result Comment: RARE BUDDING YEAST Performed By: #### P T #### [facility] [address] [place], [place] [address] Dr. Mirian Velasco POINT OF CARE GLUCOSEon 10-06 Glucose [Mass/Vol] 131 mg/dL Critically high 74-106 [facility] Comment on above: Performed By: #### P OCGLUC ####[facility] [id number] [place], [place] [id number]. Mirian Velasco Glucose [Mass/Vol] 113 mg/dL Critically high 74-106 [facility] Comment on above: Performed By: #### P OCGLUC ####[facility] [id number] [place], [place] [address]QaDr. Mirian Velasco XR FOOT RT 2Von 10-17-2022 [...] NICKI DACOSTA Date: 2022-10-17 18:04 Normal [facility]on SARS-CoV-2 (COVID-19) RNA JOSÉ MIGUEL+probe Ql (Unsp spec) Not detected Normal NOT DETECTED [facility] Comment on above: Result Comment: This test is not yet approved or cleared by the [place] FDA. When there are no FDA-approved or cleared tests available, and other criteria are met, FDA can make tests available under an emergency access mechanism called an Emergency Use Authorization (EUA). The EUA for this test is supported by the Senior Medical Transcriptionist of Health and Human Service's (HHS's) declaration [...] SARS-CoV-2. Performed By: #### C VDTB #### [facility] [address] [address] [address] Mirian Velasco Diagnostic Mammogram, Unilat eral [...] VERY IMPORTANT TO YOUR HEALTH. THE CURRENT [employer] GUIDELINES RECOMMENDS ANNUAL MAMMOGRAPHY BEGINNING AT AGE 40 THIS FACILITY USES A REMINDER SYSTEM TO ENSURE ALL PATIENTS RECEIVE REMINDER NOTIFICATIONS AT THE APPROPRIATE TIME BASED ON THE RECOMMENDATIONS OF THIS EXAM. Board Certified Radiologist. Accredited by the ACR and FDA. Report reported and signed by Dawna Lizarraga on 09/28/2022 1307 Normal [facility] CBC AUTO DIFFon 09-26-2022 BASO # 0.1 103/ul Normal 0.0-0.1 [facility] Comment on above: Performed By: #### L ACT #### [facility] [address] [address] [address] Mirian Velasco Basophils/100 WBC (Bld) 0.8 % Normal 0.2-2.0 [facility] Comment on above: Performed By: #### L ACT #### [facility] [address] [place], [place] [address] Dr. Mirian Velasco EO # 0.1 103/ul Normal 0.0-0.7 [facility] Comment on above: Performed By: #### L ACT #### [facility] [address] [address] [address] Mirian Velasco Eosinophils/100 WBC (Bld) 1.5 % Normal 0.9-7.0 [facility] Comment on above: Performed By: #### L ACT #### [facility] [address] [place] [address] Dr. Mirian Velasco Erythrocyte distribution width (RBC) [Ratio] 13.4 % Normal 11.0-15.0 [facility] Comment on above: Performed By: #### L ACT #### [facility] [address] [place] [address] Dr. Mirian Velasco Hematocrit (Bld) [Volume fraction] 41.3 % Normal 36.0-48.0 [facility] Comment on above: Performed By: #### L ACT #### [facility] [address] [place] [address] Dr. Mirian Velasco Hemoglobin (Bld) [Mass/Vol] 13.4 g/dL Normal 12.0-16.0 [facility] Comment on above: Performed By: #### L ACT #### [facility] [address] [place] [address] Dr. Mirian Velasco IG # 0.04 10e3/ul Critically high 0.00-0.03 [facility] Comment on above: Performed By: #### L ACT #### [facility] [address] [place] [address] Dr. Mirian Velasco IG % 0.5 % Normal 0.0-0.5 [facility] Comment on above: Performed By: #### L ACT #### [facility] [address] [place] [address] Dr. Mirian Velasco LYMPH # 2.5 103/ul Normal 1.2-3.8 [facility] Comment on above: Performed By: #### L ACT #### [facility] [address] [place] [address] Dr. Mirian Velasco Lymphocytes/100 WBC (Bld) 27.7 % Normal 20.5-60.0 [facility] Comment on above: Performed By: #### L ACT #### [facility] [address] [place] [address] Dr. Mirian Velasco MANUAL DIFF REQ NO Normal [facility] Comment on above: Performed By: #### L ACT #### [facility] [address] [place] [address] Dr. Mirian Velasco MCH (RBC) [Entitic mass] 27.6 pg Normal 26.7-34.0 [facility] Comment on above: Performed By: #### L ACT #### [facility] [address] [place] [address] Dr. Mirian Velasco MCHC (RBC) [Mass/Vol] 32.4 g/dL Normal 29.9-35.2 [facility] Comment on above: Performed By: #### L ACT #### [facility] [address] [place] [address] Dr. Mirian Velasco MCV (RBC) [Entitic vol] 85.0 fL Normal 81.0-99.0 [facility] Comment on above: Performed By: #### L ACT #### [facility] [address] [place] [address] Dr. Mirian Velasco MONO # 0.6 103/ul Normal 0.3-0.8 [facility] Comment on above: Performed By: #### L ACT #### [facility] [address] [place] [address] Dr. Mirian Velasco Monocytes/100 WBC (Bld) 6.9 % Normal 1.7-12.0 [facility] Comment on above: Performed By: #### L ACT #### [facility] [address] [place] [address] Dr. Mirian Velasco NEUT # 5.6 103/ul Normal 1.4-6.5 [facility] Comment on above: Performed By: #### L ACT #### [facility] [address] [place] [address] Dr. Mirian Velasco Neutrophils/100 WBC (Bld) 62.6 % Normal 43.0-75.0 [facility] Comment on above: Performed By: #### L ACT #### [facility] [address] [place] [address] Dr. Mirian Velasco Platelet mean volume (Bld) [Entitic vol] 8.6 fL Critically low 9.5-13.5 [facility] Comment on above: Performed By: #### L ACT #### [facility] [address] [place] [address] Dr. Mirian Velasco PLT 372 103/ul Normal 150-450 [facility] Comment on above: Performed By: #### L ACT #### [facility] [address] [address] [address] Mirian Velasco RBC 4.86 106/ul Normal 4.20-5.40 [facility] Comment on above: Performed By: #### L ACT #### [facility] [address] [place] [address] Dr. Mirian Velasco WBC 8.9 103/ul Normal 4.0-11.0 [facility] Comment on above: Performed By: #### L ACT #### [facility] [address] [place] [address] Dr. Mirian Velasco PROF CHEM 8 (BAS METB)on Anion gap [Moles/Vol] 8.0 mmol/L Normal [facility] Comment on above: Performed By: #### P T #### [facility] [address] [place] [address] Dr. Mirina Velasco Calcium [Mass/Vol] 9.0 mg/dL Normal 8.5-10.1 [facility] Comment on above: Performed By: #### P T #### [facility] [address] [place] [address] Dr. Mirian Velasco Chloride [Moles/Vol] 106 mmol/L Normal 98-107 [facility] Comment on above: Performed By: #### P T #### [facility] [address] [place] [address] Dr. Mirian Velasco CO2 [Moles/Vol] 30.3 mmol/L Normal 21.0-32.0 [facility] Comment on above: Performed By: #### P T #### [facility] [address] [address] [address] Mirian Velasco Creatinine [Mass/Vol] 0.71 mg/dL Normal 0.55-1.02 [facility] Comment on above: Performed By: #### P T #### [facility] [address] [address] [address] Mirian Velasco EGFR-AF LIBERIAN >60 Normal >=60 [facility] Comment on above: Performed By: #### P T #### [facility] [address] [place] [address] Dr. Mirian Velasco EGFR-NON AF LIBERIAN >60 Normal >=60 [facility] Comment on above: Performed By: #### P T #### [facility] [address] [place] [address] Dr. Mirian Velasco Glucose [Mass/Vol] 81 mg/dL Normal 74-106 [facility] Comment on above: Performed By: #### P T #### [facility] [address] [address] [address] Mirian Velasco Potassium [Moles/Vol] 4.3 mmol/L Normal 3.5-5.1 [facility] Comment on above: Performed By: #### P T #### [facility] [address] [place] [address] Dr. Mirian Velasco Sodium [Moles/Vol] 140 mmol/L Normal 136-145 [facility] Comment on above: Performed By: #### P T #### [facility] [address] [place] [address] Dr. Mirian Velasco Urea nitrogen [Mass/Vol] 16.0 mg/dL Normal 7.0-18.0 [facility] Comment on above: Performed By: #### P T #### [facility] [address] [place] [address] Dr. Mirian Velasco Urea nitrogen/Creatinine [Mass ratio] 22.5 mg/mg Normal [facility] Comment on above: Performed By: #### P T #### [facility] [address] [place] [address] Dr. Mirian Velasco C reactive protein [Mass/vol ume] in Serum or PlasmaOrdered By: Beto Harris on 09-22-2022 CRP [Mass/Vol] 0.6 mg/dL 0.0-1.0 [facility] C-Reactive Proteinon 022 C-Reactive Protein 0.6 mg/dL Normal 0.0-1.0 mg/dL [facility] [employer] Other Erythrocyte Sedimentation Ra lian 09-22-2022 ESR (Bld) [Velocity] 4 mm/h Normal 0-29 [facility] [employer] Other Erythrocyte sedimentation ra te by Photometric methodOrdered By: Beto Harris on 09-22-2022 ESR Photometric method (Bld) [Velocity] 4 mm/hr 0-29 [facility] Serum nuclear antibody titer Ordered By: Beto Harris on 09-22-2022 Nuclear Ab (S) [Titer] Negative . [facility] Comment on above: Negative <1:80 [place] 1:80 Positive >1:80ICAP nomenclature: AC-0For more information about Hep-2 cell patterns useANApatterns.org, the official website for theInternational Consensus on Antinuclear Antibody (CHUYITA)Patterns (ICAP).Performed at: [facility] [address] [id number] Director: Erick Neville PhD, Phone: [phone] Serum or plasma rheumatoid f actor measurement (units/volume)Ordered By: Beto Harris on 09-22-2022 Rheumatoid factor Qn [IU]/mL <14.0 [facility] Comment on above: Performed at: [facility] [address] [id number] Director: Erick Neville PhD, Phone: [phone] Serum or plasma thyroxine (T 4) measurement (mass/volume)Ordered By: Beto Harris on 09-22-2022 T4 [Mass/Vol] 9.82 ug/dL 5.39-11.82 [facility] Serum or plasma uric acid me asurement (mass/volume)Ordered By: Beto Harris on 09-22-2022 Urate [Mass/Vol] 4.2 mg/dL 2.6-7.2 [facility] TSH DL <= 0.005 mIU/L QnOrde red By: Beto Harris on 09-22-2022 TSH Qn 1.98 m[IU]/L 0.45-5.33 [facility] Thyroid Stimulating Hormoneo n 09-22-2022 TSH Qn 1.53659465131 m[IU]/L Normal 0.45-5 .33 u[iU]/mL [facility] [employer] Other Thyroxine (T4) Totalon 09-22 Thyroxine (T4) Total 9.82 ug/dL Normal 5.39-11 .82 ug/dL [employer] Other Uric Acidon 09-22-2022 Urate [Mass/Vol] 4.5232333 mg/dL Normal 2.6-7.2 mg/dL [employer] Other XR knee BI 2Von 09-22-2022 XR knee BI 2V [facility] [employer] Other XR knee BI 2V [facility] [employer] Other XR knee BI 2V [address] [place] [address] [employer] Other XR knee BI 2V [address] [employer] Other XR knee BI 2V XRay Report [facility] [employer] Other XR knee BI 2V Signed [employer] Other XR knee BI 2V Patient: ElvisDarrian Kenny MR#: [id number] [facility] [employer] Other XR knee BI 2V 863 [employer] Other XR knee BI 2V : 1970 Acct:[id number] [employer] Other XR knee BI 2V Age/Sex: 52 / F ADM Date: 09/22/22 [employer] Other XR knee BI 2V Loc: [facility] Room: Type : REG CLI [employer] Other XR knee BI 2V Attending Dr: Beot Harris MD [employer] Other XR knee BI 2V Copies to: Beto Harris MD [employer] Other XR knee BI 2V Ordering Provider: Beto Harris MD [employer] Other XR knee BI 2V Date of Service: 09/22/22 [employer] Other XR knee BI 2V XR/XR knee BI 2V: Knee pain [employer] Other XR knee BI 2V XR knee BI 2V 09/22/2022 9:23 AM [employer] Other XR knee BI 2V SIGNS AND SYMPTOMS: Bilateral knee pain right greater than left [employer] Other XR knee BI 2V PROTOCOL: Frontal an d lateral radiographs of the bilateral knees [employer] Other XR knee BI 2V COMPARISON: None [employer] Other XR knee BI 2V FINDINGS: [employer] Other XR knee BI 2V There is evidence of prior ACL repair in the left knee with mild narrowing of the weightbearing [employer] Other XR knee BI 2V joint spaces on the left. The joint spaces are otherwise preserved. There is no fracture or [employer] Other XR knee BI 2V dislocation. No join t effusion or soft tissue swelling. [employer] Other XR knee BI 2V XR/XR knee BI 2V [employer] Other XR knee BI 2V IMPRESSION: [facility] [employer] Other XR knee BI 2V Status post ACL repa ir on the left. [employer] Other XR knee BI 2V Mild degenerative changes are noted in the weightbearing joint spaces of the left. [employer] Other XR knee BI 2V No acute bony injury. [employer] Other XR knee BI 2V Impression dictated by: Rajiv Garcia M.D.09/22/2022 2:17 PM [employer] Other XR knee BI 2V Dictation Location: [place] [address] [employer] Other XR knee BI 2V Transcribed By: PWS 09/22/22 [facility] [employer] Other XR knee BI 2V Dictated By: Rajiv Garcia II, MD 09/22/22 [facility] [employer] Other XR knee BI 2V Signed By: [employer] Other XR knee BI 2V 09/22/22 [facility] [employer] Other XR shoulder BI min 2Von 09-06 XR shoulder BI min 2V XR/XR shoulder BI min 2V: Shoulder pain [employer] Other XR shoulder BI min 2V XR shoulder BI min 2V 09/22/2022 9:23 AM [employer] Other XR shoulder BI min 2V SIGNS AND SYMPTOMS : Bilateral shoulder pain with limited range of motion [employer] Other XR shoulder BI min 2V PROTOCOL: Frontal, Grashey, scapular Y, and axillary views of the bilateral shoulders [employer] Other XR shoulder BI min 2V COMPARISON: 02/26/2018 [employer] Other XR shoulder BI min 2V There has been bon y resorption of the lateral margin of the clavicle on the right suggesting [employer] Other XR shoulder BI min 2V osteomyelitis is w hich may be degenerative or traumatic. Mild hypertrophy of the AC joint is noted. [employer] Other XR shoulder BI min 2V The glenohumeral j oint is preserved on the right. There is subcortical sclerosis greater tuberosity [employer] Other XR shoulder BI min 2V of the right suggesting underlying rotator cuff abnormalities. This is new when compared to the [employer] Other XR shoulder BI min 2V prior exam. The visualized right hemithorax is grossly intact. [employer] Other XR shoulder BI min 2V There is mild hypertrophy of the left acromioclavicular joint. There is mild subcortical sclerosis [employer] Other XR shoulder BI min 2V of the greater tuberosity in the left suggesting underlying rotator cuff abnormalities. The [employer] Other XR shoulder BI min 2V glenohumeral joint is preserved. There is no fracture or dislocation. Visualized left hemithorax is [employer] Other XR shoulder BI min 2V grossly intact. [employer] Other XR shoulder BI min 2V There is partial visualization of intervertebral disc arthroplasty is noted within the lower [employer] Other XR shoulder BI min 2V cervical spine. Rudimentary ribs are noted at C7, right greater than left [employer] Other XR shoulder BI min 2V XR/XR shoulder BI min 2V [employer] Other XR shoulder BI min 2V Degenerative velasco es are noted in the bilateral shoulders with findings suspicious for bilateral [employer] Other XR shoulder BI min 2V rotator cuff abnormalities as above. 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 [employer] Other XR shoulder BI min 2V Rudimentary ribs a re noted at C7, right greater than left [employer] Other XR shoulder BI min 2V Impression dictate d by: Rajiv Garcia M.D.09/22/2022 2:20 PM [employer] Other XR shoulder BI min 2V Transcribed By: KT Thorpe 09/22/22 1420 [employer] Other XR shoulder BI min 2V Dictated By: Rajiv Garcia II, MD 09/22/22 1417 [employer] Other XR shoulder BI min 2V 09/22/22 1425 [employer] Other SCREENING MAMMOGRAM W/RUSSEL, BILATERAL*on 09-14-2022 SCREENING [...] IS VERY IMPORTANT TO YOUR HEALTH. CURRENT [employer] [employer] GUIDELINES RECOMMENDS ANNUAL MAMMOGRAPHY BEGINNING AT AGE 42. THIS FACILITY USUALLY USES A REMINDER SYSTEM TO ENSURE ALL POSITIONS RECEIVED REMINDER NOTIFICATIONS AT THE TIME BASED ON THE RECOMMENDATIONS OF THIS EXAM. 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 Mirian Velasco CBC AUTO DIFFon 04-17-2022 BASO # 0.1 103/ul Normal 0.0-0.1 [facility] Comment on above: Performed By: #### L ACT #### [facility] [address] [address] [address] Mirian Velasco Basophils/100 WBC (Bld) 1.0 % Normal 0.2-2.0 [facility] Comment on above: Performed By: #### L ACT #### [facility] [address] [place] [address] Dr. Mirian Velasco EO # 0.2 103/ul Normal 0.0-0.7 [facility] Comment on above: Performed By: #### L ACT #### [facility] [address] [place] [address] Dr. Mirian Velasco Eosinophils/100 WBC (Bld) 3.3 % Normal 0.9-7.0 [facility] Comment on above: Performed By: #### L ACT #### [facility] [address] [place] [address] Dr. Mirian Velasco Erythrocyte distribution width (RBC) [Ratio] 12.0 % Normal 11.0-15.0 [facility] Comment on above: Performed By: #### L ACT #### [facility] [address] [place] [address] Dr. Mirian Velasco Hematocrit (Bld) [Volume fraction] 37.3 % Normal 36.0-48.0 [facility] Comment on above: Performed By: #### L ACT #### [facility] [address] [place] [address] Dr. Mirian Velasco Hemoglobin (Bld) [Mass/Vol] 12.1 g/dL Normal 12.0-16.0 [facility] Comment on above: Performed By: #### L ACT #### [facility] [address] [address] [address] Mirian Velasco IG # 0.03 10e3/ul Normal 0.00-0.03 [facility] Comment on above: Performed By: #### L ACT #### [facility] [address] [address] [address] Mirian Velasco IG % 0.4 % Normal 0.0-0.5 [facility] Comment on above: Performed By: #### L ACT #### [facility] [address] [place] [address] Dr. Mirian Velasco LYMPH # 1.8 103/ul Normal 1.2-3.8 [facility] Comment on above: Performed By: #### L ACT #### [facility] [address] [place] [address] Dr. Mirian Velasco Lymphocytes/100 WBC (Bld) 25.2 % Normal 20.5-60.0 [facility] Comment on above: Performed By: #### L ACT #### [facility] [address] [place] [address] Dr. Mirian Velasco MANUAL DIFF REQ NO Normal [facility] Comment on above: Performed By: #### L ACT #### [facility] [address] [place] [address] Dr. Mirian Velasco MCH (RBC) [Entitic mass] 29.0 pg Normal 26.7-34.0 [facility] Comment on above: Performed By: #### L ACT #### [facility] [address] [place] [address] Dr. Mirian Velasco MCHC (RBC) [Mass/Vol] 32.4 g/dL Normal 29.9-35.2 [facility] Comment on above: Performed By: #### L ACT #### [facility] [address] [place] [address] Dr. Mirian Velasco MCV (RBC) [Entitic vol] 89.4 fL Normal 81.0-99.0 [facility] Comment on above: Performed By: #### L ACT #### [facility] [address] [address] [address] Mirian Velasco MONO # 0.4 103/ul Normal 0.3-0.8 [facility] Comment on above: Performed By: #### L ACT #### [facility] [address] [place] [address] Dr. Mirian Velasco Monocytes/100 WBC (Bld) 5.8 % Normal 1.7-12.0 [facility] Comment on above: Performed By: #### L ACT #### [facility] [address] [place] [address] Dr. Mirian Velasco NEUT # 4.6 103/ul Normal 1.4-6.5 [facility] Comment on above: Performed By: #### L ACT #### [facility] [address] [place] [address] Dr. Mirian Velasco Neutrophils/100 WBC (Bld) 64.3 % Normal 43.0-75.0 [facility] Comment on above: Performed By: #### L ACT #### [facility] [address] [place] [address] Dr. Mirian Velasco Platelet mean volume (Bld) [Entitic vol] 8.6 fL Critically low 9.5-13.5 [facility] Comment on above: Performed By: #### L ACT #### [facility] [address] [place] [address] Dr. Mirian Velasco PLT 597 103/ul Critically high 150-450 [facility] Comment on above: Performed By: #### L ACT #### [facility] [address] [place] [address] Dr. Mirian Velasco RBC 4.17 106/ul Critically low 4.20-5.40 [facility] Comment on above: Performed By: #### L ACT #### [facility] [address] [place] [address] Dr. Mirian Velasco WBC 7.2 103/ul Normal 4.0-11.0 [facility] Comment on above: Performed By: #### L ACT #### [facility] [address] [place] [address] ABD/PELVIS WO CONon [...] LORRI TRIPLETT Date: 2022-04-17 11:19 Normal [facility] ER URINE PROFILEon 2 Bilirubin Ql (U) Negative Normal NEGATIVE [facility] Comment on above: Performed By: #### P T #### [facility] [address] [place] [address] Dr. Mirian Velasco Clarity (U) CLEAR Normal CLEAR [facility] Comment on above: Performed By: #### P T #### [facility] [address] [place] [address] Dr. Mirian Velasco Color (U) YELLOW Normal YELLOW [facility] Comment on above: Performed By: #### P T #### [facility] [address] [place] [address] Dr. Mirian KING A micrscopic examination will be performed if indicated. Normal [facility] Comment on above: Performed By: #### P T #### [facility] [address] [address] [address] Mirian Velasco Glucose Ql (U) Negative Normal NEGATIVE [facility] Comment on above: Performed By: #### P T #### [facility] [address] [place] [address] Dr. Mirian Velasco Hemoglobin Ql (U) Negative Normal NEGATIVE [facility] Comment on above: Performed By: #### P T #### [facility] [address] [place] [address] Dr. Mirian Velasco Ketones Ql (U) Negative Normal NEGATIVE [facility] Comment on above: Performed By: #### P T #### [facility] [address] [place] [address] Dr. Mirian Velasco LEUKOCYTES Negative Normal NEGATIVE [facility] Comment on above: Performed By: #### P T #### [facility] [address] [place] [address] Dr. Mirian Velasco Nitrite Ql (U) Negative Normal NEGATIVE [facility] Comment on above: Performed By: #### P T #### [facility] [address] [place] [address] Dr. Mirian Velasco pH (U) 5.5 [pH] Normal 5-9 [facility] Comment on above: Performed By: #### P T #### [facility] [address] [place] [address] Dr. Mirian Velasco SPEC GRAVITY >=1.030 Abnormal 1.005-<=1.025 [facility] Comment on above: Performed By: #### P T #### [facility] [address] [place] [address] Dr. Mirian Velasco UA PROTEIN Negative Normal NEGATIVE/ TRACE [facility] Comment on above: Performed By: #### P T #### [facility] [address] [place] [address] Dr. Mirian Velasco UR MICRO IND NOT INDICATED Normal [facility] Comment on above: Performed By: #### P T #### [facility] [address] [place] [address] Dr. Mirian Velasco Urobilinogen Qn (U) 0.2 {Lyubov'U}/dL Normal 0.2 - 1. 0 [facility] Comment on above: Performed By: #### P T #### [facility] [address] [place] [address] Dr. Mirian Velasco LIPASEon 04-17-2022 Lipase [Catalytic activity/Vol] 117.0 U/L Normal 73.0-393.0 [facility] Comment on above: Performed By: #### P T #### [facility] [address] [place] [address] Dr. Mirian Velasco PROF 14(COMP METB)on 022 Albumin [Mass/Vol] 3.5 g/dL Normal 3.4-5.0 [facility] Comment on above: Performed By: #### P T #### [facility] [address] [place] [address] Dr. Mirian Velasco Albumin/Globulin [Mass ratio] 0.9 {ratio} Normal [facility] Comment on above: Performed By: #### P T #### [facility] [address] [place] [address] Dr. Mirian Velasco ALP [Catalytic activity/Vol] 237 U/L Critically high 46-116 [facility] Comment on above: Performed By: #### P T #### [facility] [address] [place] [address] Dr. Mirian Velasco ALT [Catalytic activity/Vol] 53 U/L Normal 14-59 [facility] Comment on above: Performed By: #### P T #### [facility] [address] [place] [address] Dr. Mirian Velasco Anion gap [Moles/Vol] 11.0 mmol/L Normal [facility] Comment on above: Performed By: #### P T #### [facility] [address] [address] [address] Mirian Velasco AST [Catalytic activity/Vol] 45 U/L Critically high 15-37 [facility] Comment on above: Performed By: #### P T #### [facility] [address] [address] [address] Mirain Velasco Bilirubin [Mass/Vol] 0.2 mg/dL Normal 0.2-1.0 [facility] Comment on above: Performed By: #### P T #### [facility] [address] [place] [address] Dr. Mirian Velasco Calcium [Mass/Vol] 9.3 mg/dL Normal 8.5-10.1 [facility] Comment on above: Performed By: #### P T #### [facility] [address] [place] [address] Dr. Mirian Velasco Chloride [Moles/Vol] 105 mmol/L Normal 98-107 [facility] Comment on above: Performed By: #### P T #### [facility] [address] [place] [address] Dr. Mirian Velasco CO2 [Moles/Vol] 29.5 mmol/L Normal 21.0-32.0 [facility] Comment on above: Performed By: #### P T #### [facility] [address] [place] [address] Dr. Mirian Velasco Creatinine [Mass/Vol] 0.69 mg/dL Normal 0.55-1.02 [facility] Comment on above: Performed By: #### P T #### [facility] [address] [address] [address] Mirian Velasco EGFR-AF LIBERIAN >110 Normal >=60 [facility] Comment on above: Performed By: #### P T #### [facility] [address] [place] [address] Dr. Mirian Velasco EGFR-NON AF LIBERIAN >90 Normal >=60 [facility] Comment on above: Performed By: #### P T #### [facility] [address] [address] [address] Mirian Velasco Globulin (S) [Mass/Vol] 4.0 g/dL Normal [facility] Comment on above: Performed By: #### P T #### [facility] [address] [address] [address] Mirian Velasco Glucose [Mass/Vol] 107 mg/dL Critically high 74-106 [facility] Comment on above: Performed By: #### P T #### [facility] [address] [address] [address] Mirian Velasco Potassium [Moles/Vol] 4.5 mmol/L Normal 3.5-5.1 [facility] Comment on above: Performed By: #### P T #### [facility] [address] [place] [address] Dr. Mirian Velasco Protein [Mass/Vol] 7.5 g/dL Normal 6.4-8.2 [facility] Comment on above: Performed By: #### P T #### [facility] [address] [address] [address] Mirian Velasco Sodium [Moles/Vol] 141 mmol/L Normal 136-145 [facility] Comment on above: Performed By: #### P T #### [facility] [address] [place] [address] Dr. Mirian Velasco Urea nitrogen [Mass/Vol] 11.0 mg/dL Normal 7.0-18.0 [facility] Comment on above: Performed By: #### P T #### [facility] [address] [address] [address] Mirian Velasco Urea nitrogen/Creatinine [Mass ratio] 15.9 mg/mg Normal [facility] Comment on above: Performed By: #### P T #### [facility] [address] [place] [address] Dr. Mirian Velasco XR CHEST 1 Von 04-17-2022 XR CHEST 1 V EXAM: Chest x-ray HISTORY: Pain. COMPARISON: 02/20/2022 TECHNIQUE: AP portable upright view of the chest. FINDINGS: Heart and Vascularity are unremarkable. Lungs are free of focal infiltrates. No effusions are noted. Impression: No acute heart or lung disease identified. Electronically authenticated by: NICKI BUTT Date: 2022-04-17 11:03 Normal [facility] Basic metabolic 2000 panelon 04-05-2022 Anion gap [Moles/Vol] 13 mmol/L Normal 9-18 [facility] Comment on above: Order Comment: Speci men Type: BLOOD SPECIMEN Ordering Facility: [facility] Address: [address] [place] [address] Performed By: #### 5 8410-2 #### [facility] CLIA [id number] [address] [place] [address] [place] Calcium [Mass/Vol] 9.0 mg/dL Normal 8.5-10.2 [facility] Comment on above: Order Comment: Leanne terry Type: BLOOD SPECIMEN Ordering Facility: [facility] Address: [address] [place] [address] Performed By: #### 5 8410-2 #### [facility] CLIA [id number] [address] [place] [address] [place] Chloride [Moles/Vol] 104 mmol/L Normal 97-105 [facility] Comment on above: Order Comment: Leanne terry Type: BLOOD SPECIMEN Ordering Facility: [facility] Address: [address] [place] [address] Performed By: #### 5 8410-2 #### [facility] CLIA [id number] [address] [place] [address] [place] CO2 [Moles/Vol] 25 mmol/L Normal 22-30 [facility] Comment on above: Order Comment: Everettei men Type: BLOOD SPECIMEN Ordering Facility: [facility] Address: [address] [place] [address] Performed By: #### 5 8410-2 #### [facility] CLIA [id number] [address] [place] [address] [place] Creatinine [Mass/Vol] 0.65 mg/dL Normal 0.58-0.96 [facility] Comment on above: Order Comment: Leanne terry Type: BLOOD SPECIMEN [facility] Facility[facility] Address: [address] [place] [address] Performed By: #### 5 8410-2 #### [facility] CLIA [id number] [address] [place] [address] [place] ESTIMATED GLOMERULAR FILTRATION RATE 108 mL/min/1.73m??? Normal >=60 [facility] Comment on above: Order Comment: Leanne terry Type: BLOOD SPECIMEN [facility]ing Facility[facility] Address: [address] [place] [address] Result Comment: Mary mated Glomerular Filtration Rate [...] GFR. Performed By: #### 5 8410-2 #### [facility] CLIA [id number] [address] [place] [address] [place] Glucose [Mass/Vol] 109 mg/dL High 74-99 [facility] Comment on above: Order Comment: Leanne terry Type: BLOOD SPECIMEN [facility]ing [facility] Address: [address] [place] [address] Result Comment: The [place] Diabetes Association (ADA) provides guidance for cutoff [...] Standards of Medical Care in Diabetes 2016, [place] [employer]. Diabetes Care. 2016.39(Suppl 1). Performed By: #### 5 8410-2 #### [facility] CLIA [id number] [address] [place] [address] [place] Potassium [Moles/Vol] 3.9 mmol/L Normal 3.7-5.1 [facility] Comment on above: Order Comment: Speci men Type: BLOOD SPECIMEN [facility] Address: [address] [place] [address] Performed By: #### 5 8410-2 #### [facility] CLIA [id number] [address] [place] [address] [place] Sodium [Moles/Vol] 142 mmol/L Normal 136-144 [facility] Comment on above: Order Comment: Speci men Type: BLOOD SPECIMEN [facility] Address: [address] [place] [address] Performed By: #### 5 8410-2 #### [facility] CLIA [id number] [address] [place] [address] [place] Urea nitrogen [Mass/Vol] 7 mg/dL Normal 7-21 [facility] Comment on above: Order Comment: Speci men Type: BLOOD SPECIMEN [facility] Address: [address] [place] [address] Performed By: #### 5 8410-2 #### [facility] CLIA [id number] [address] [place] [address] [place] CBC W Auto Differential pane l (Bld)on 04-05-2022 Basophils (Bld) [#/Vol] 0.05 10*3/uL Normal <0.11 [facility] Comment on above: Order Comment: Speci men Type: BLOOD SPECIMENOrdering Facility: [facility] Address: [address] [place] [address] Performed By: #### B MP #### [place] [address] Basophils/100 WBC (Bld) 0.7 % Normal [facility] Comment on above: Order Comment: Speci men Type: BLOOD SPECIMENOrdering Facility: [facility] Address: [address] [address] Performed By: #### B MP #### [place] [id number] Differential cell count method Nom (Bld) Auto Normal [facility] Comment on above: Order Comment: Speci men Type: BLOOD SPECIMENOrdering Facility: [facility] Address: [address] [place] [address] Performed By: #### B MP #### [place] [address] Eosinophils (Bld) [#/Vol] 0.55 10*3/uL High <0.46 [facility] Comment on above: Order Comment: Speci men Type: BLOOD SPECIMENOrdering Facility: [facility] Address: [address] [place] [address] Performed By: #### B MP #### [place] [address] Eosinophils/100 WBC (Bld) 8.2 % Normal [facility] Comment on above: Order Comment: Speci men Type: BLOOD SPECIMENOrdering Facility: [facility] Address: [address] [place] [address] Performed By: #### B MP #### [place] [address] Erythrocyte distribution width (RBC) [Ratio] 12.8 % Normal 11.5-15.0 [facility] Comment on above: Order Comment: Speci men Type: BLOOD SPECIMENOrdering Facility: [facility] Address: [address] [place] [address] Performed By: #### B MP #### [place] [phone] Hematocrit (Bld) [Volume fraction] 31.1 % Low 36.0-46.0 [facility] Comment on above: Order Comment: Speci men Type: BLOOD SPECIMENOrdering Facility: [facility] Address: [address] [place] [address] Performed By: #### B MP #### [place] [phone] Hemoglobin (Bld) [Mass/Vol] 10.5 g/dL Low 11.5-15.5 [facility] Comment on above: Order Comment: Speci men Type: BLOOD SPECIMENOrdering Facility: [facility] Address: [address] [place] [address] Performed By: #### B MP #### [place] [phone] IMMATURE GRAN % 0.4 % Normal [facility] Comment on above: Order Comment: Speci men Type: BLOOD SPECIMENOrdering Facility: [facility] Address: [address] [place] [address] Performed By: #### B MP #### [place] [phone] IMMATURE GRAN ABS 0.03 k/uL Normal <0.10 [facility] Comment on above: Order Comment: Speci men Type: BLOOD SPECIMENOrdering Facility: [facility] Address: [address] [place] [address] Performed By: #### B MP #### [place] [phone] Lymphocytes (Bld) [#/Vol] 1.47 10*3/uL Normal 1.00-4.00 [facility] Comment on above: Order Comment: Speci men Type: BLOOD SPECIMENOrdering Facility: [facility] Address: [address] [place] [address] Performed By: #### B MP #### [place] [phone] Lymphocytes/100 WBC (Bld) 22.0 % Normal [facility] Comment on above: Order Comment: Speci men Type: BLOOD SPECIMENOrdering Facility: [facility] Address: [address] [place] [address] Performed By: #### B MP #### [place] [phone] MCH (RBC) [Entitic mass] 29.9 pg Normal 26.0-34.0 [facility] Comment on above: Order Comment: Speci men Type: BLOOD SPECIMENOrdering Facility: [facility] Address: [address] [place] [address] Performed By: #### B MP #### [place] [phone] MCHC (RBC) [Mass/Vol] 33.8 g/dL Normal 30.5-36.0 [facility] Comment on above: Order Comment: Speci men Type: BLOOD SPECIMENOrdering Facility: [facility] Address: [address] [place] [address] Performed By: #### B MP #### [place] [phone] MCV (RBC) [Entitic vol] 88.6 fL Normal 80.0-100.0 [facility] Comment on above: Order Comment: Speci men Type: BLOOD SPECIMENOrdering Facility: [facility] Address: [address] [place] [address] Performed By: #### B MP #### [place] [phone] Monocytes (Bld) [#/Vol] 0.50 10*3/uL Normal <0.87 [facility] Comment on above: Order Comment: Speci men Type: BLOOD SPECIMENOrdering Facility: [facility] Address: [address] [place] [address] Performed By: #### B MP #### [phone] Monocytes/100 WBC (Bld) 7.5 % Normal [facility] Comment on above: Order Comment: Speci men Type: BLOOD SPECIMENOrdering Facility: [facility] Address: [address] [place] [address] Performed By: #### B MP #### [place] [phone] Neutrophils (Bld) [#/Vol] 4.08 10*3/uL Normal 1.45-7.50 [facility] Comment on above: Order Comment: Speci men Type: BLOOD SPECIMENOrdering Facility: [facility] Address: [address] [place] [address] Performed By: #### B MP #### [place] [phone] Neutrophils/100 WBC (Bld) 61.2 % Normal [facility] Comment on above: Order Comment: Speci men Type: BLOOD SPECIMENOrdering Facility: [facility] Address: [address] [place] [address] Performed By: #### B MP #### [phone] Nucleated RBC (Bld) [#/Vol] 10*3/uL Normal <0.01 [facility] Comment on above: Order Comment: Speci men Type: BLOOD SPECIMENOrdering Facility: [facility] Address: [address] [place] [address] Performed By: #### B MP #### [place] [phone] Nucleated RBC/100 WBC (Bld) [Ratio] 0.0 /100 WBC Normal [facility] Comment on above: Order Comment: Speci men Type: BLOOD SPECIMENOrdering Facility: [facility] Address: [address] [place] [address] Performed By: #### B MP #### [place] [address] Platelet mean volume (Bld) [Entitic vol] 8.9 fL Low 9.0-12.7 [facility] Comment on above: Order Comment: Speci men Type: BLOOD SPECIMENOrdering Facility: [facility] Address: [address] [place] [address] Performed By: #### B MP #### [place] [phone] Platelets (Bld) [#/Vol] 455 10*3/uL High 150-400 [facility] Comment on above: Order Comment: Speci men Type: BLOOD SPECIMENOrdering Facility: [facility] Address: [address] [place] [address] Performed By: #### B MP #### [place] [address] RBC (Bld) [#/Vol] 3.51 10*6/uL Low 3.90-5.20 [facility] Comment on above: Order Comment: Speci men Type: BLOOD SPECIMENOrdering Facility: [facility] Address: [address] [place] [address] Performed By: #### B MP #### [place] [phone] WBC (Bld) [#/Vol] 6.68 10*3/uL Normal 3.70-11.00 [facility] Comment on above: Order Comment: Speci men Type: BLOOD SPECIMENOrdering Facility: [facility] Address: [address] [place] [address] Performed By: #### B MP #### [place] [address] CNDSon 04-05-2022 CNDS HNO ID: [id number] Author: Jessi Sheets APRN.NET WASHER Service: Colorectal Author Type: Nurse Practitioner Type: [...] of the summary. CONSULTING TEAMS DURING HOSPITALIZATION: [facility] Treatment Team: Attending Provider: Mary Obrien [...] only. 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 Remained nauseated. POD4 re-advanced to full liquids [...] breakfast Qty: 30 capsule Refills: 5 Associated Diagnoses:Gastroesopha geal reflux disease, unspecified whether esophagitis present traZODone [...] by mo (more content not included)... Normal [facility] Magnesium [facility] 04-05 Magnesium [Mass/Vol] 2.0 mg/dL Normal 1.7-2.3 [facility] Comment on above: Order Comment: Speci men Type: BLOOD SPECIMEN [facility] Address: [address] [place] [address] Performed By: #### 5 8410-2 #### [facility] CLIA [id number] NURSING PROGon 04-05-2022 NURSING PROG HNO ID: [id number] Author: Liliana Mayer RN Service: ? 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 This note was completed by: Liliana Mayer [facility] NURSING PROG HNO ID: [id number] Author: Liliana Mayer RN Service: ? 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 Has three lap sites,open to air and glued.Showered this morning.Up in chair,ambulates in room without any difficulties.Denies pain. This note was completed by: Liliana Mayer [facility] NURSING PROG HNO ID: [id number] Author: Eagle Gu RN Service: ? Author Type: Registered Nurse Type: Nursing Progress Note Filed: 04/04/2022 10:58 PM Note Text: Nursing Progress Note Patient Name: Mary Leal Patient Location: [address]/SL9M-52 __ Daily Note:04/04/22 2140 Pt is alert and oriented x3. Pt mabulating independently. Surgical sites intact. Pt refusing IVF, pt states she drinks enough water. This note was completed by: Eagle Gu [facility] NUTRITIONon 04-05-2022 NUTRITION HNO ID: [id number] Author: Merced Morales DTR Service: Nutrition Therapy Author Type: Drawbench Operator Type: Nutrition Filed: 04/05/2022 10:42 AM Note Text: NUTRITION THERAPY COMMUNITY PLACEMENT WORKER NOTE SERVICE DATE: 04/05/2022 SERVICE TIME: 9:45 AM Visit Type: Length of Stay Plan of Care: Supplements: Impact AR Follow-Up: [facility] Reassessment Nursing Admission Assessment Malnutrition Score: [...] April 05, 2022 TIME: 9:54 AM Normal [facility] Phosphate SerPl-mCncon 04-05 Phosphate [Mass/Vol] 4.6 mg/dL Normal 2.7-4.8 [facility] Comment on above: Order Comment: Speci men Type: BLOOD SPECIMEN [facility] Address: [address] [place] [address] Performed By: #### 5 8410-2 #### [facility] CLIA [id number] [address] [place] [address] [place] Basic metabolic 2000 panelon 04-04-2022 Anion gap [Moles/Vol] 10 mmol/L Normal 9-18 [facility] Comment on above: Order Comment: Leanne terry Type: BLOOD SPECIMENOrdering Facility: [facility] Address: [address] [place], [place] [address] Performed By: #### 2 4321-2, , 2776-11 ####[facility] [id number] [place] [address] [place] Calcium [Mass/Vol] 8.9 mg/dL Normal 8.5-10.2 [facility] Comment on above: Order Comment: Speci men Type: BLOOD SPECIMENOrdering Facility: [facility] Address: [address] [place] [address] Performed By: #### 2 4321-2, , 2776-11 ####[facility] [id number] [place] [address] [place] Chloride [Moles/Vol] 104 mmol/L Normal 97-105 [facility] Comment on above: Order Comment: Speci men Type: BLOOD SPECIMENOrdering Facility: [facility] Address: [address] [place], [place] [address] Performed By: #### 2 4321-2, , 2776-11 ####[facility] [id number] [place] [address] [place] CO2 [Moles/Vol] 26 mmol/L Normal 22-30 [facility] Comment on above: Order Comment: Speci men Type: BLOOD SPECIMENOrdering Facility: [facility] Address: [address] [place], [place] [address] Performed By: #### 2 4321-2, , 2776-11 ####[facility] [id number] [address] [facility] Creatinine [Mass/Vol] 0.56 mg/dL Low 0.58-0.96 [facility] Comment on above: Order Comment: Speci men Type: BLOOD SPECIMENOrdering Facility: [facility] Address: [address] [place] [address] Performed By: #### 2 4321-2, , 2776-11 ####[facility] [id number] [address] ESTIMATED GLOMERULAR FILTRATION RATE 112 mL/min/1.73m??? Normal >=60 [facility] Comment on above: Order Comment: Speci men Type: BLOOD SPECIMENOrdering Facility: [facility] Address: [address] [place], [place] [address] Result Comment: Mary mated Glomerular Filtration Rate [...] actual GFR. Performed By: #### 2 4321-2, 47665-627[address]-11 ####[facility] [id number] [place] [address] [place] Glucose [Mass/Vol] 112 mg/dL High 74-99 [facility] Comment on above: Order Comment: Speci men Type: BLOOD SPECIMENOrdering Facility: [facility] Address: [address] [place], [place] [address] Result Comment: The [place] Diabetes [employer] (ADA) provides guidance for cutoff [...] Standards of Medical Care in Diabetes 2016, [place] [employer]. Diabetes Care. 2016.39(Suppl 1). Performed By: #### 2 4321-2, , 2776-11 ####[facility] [id number] [place] [id number] [place] Potassium [Moles/Vol] 3.9 mmol/L Normal 3.7-5.1 [facility] Comment on above: Order Comment: Speci men Type: BLOOD SPECIMENOrdering Facility: [facility] Address: [address] [place], [place] [address] Performed By: #### 2 4321-2, , 2776-11 ####[facility] [id number] [place] [address] [place] Sodium [Moles/Vol] 140 mmol/L Normal 136-144 [facility] Comment on above: Order Comment: Speci men Type: BLOOD SPECIMENOrdering Facility: [facility] Address: [address] [place], [place] [address] Performed By: #### 2 4321-2, , 2776-11 ####[facility] [id number] [place] [address] [place] Urea nitrogen [Mass/Vol] 3 mg/dL Low - [facility] Comment on above: Order Comment: Speci men Type: BLOOD SPECIMENOrdering Facility: [facility] Address: [address] [place] [address] Performed By: #### 2 4321-2, 41799-5, 2777-1 ####[facility] [id number] [place] [address] [place] CBC W Auto Differential pane l (Bld)on 04-04-2022 Basophils (Bld) [#/Vol] 0.03 10*3/uL Normal <0.11 [facility] Comment on above: Order Comment: Speci men Type: BLOOD SPECIMEN [facility] Address: [address] [place] [address] Performed By: #### 5 7021-8 #### [facility] CLIA [id number] [address] [place] [address] [place] Basophils/100 WBC (Bld) 0.5 % Normal [facility] Comment on above: Order Comment: Speci men Type: BLOOD SPECIMEN [facility] Address: [address] [place] [address] Performed By: #### 5 7021-8 #### [facility] CLIA [id number] [address] [place] [address] [place] Differential cell count method Nom (Bld) Auto Normal [facility] Comment on above: Order Comment: Speci men Type: BLOOD SPECIMEN [facility] Address: [address] [place] [address] Performed By: #### 5 7021-8 #### [facility] CLIA [id number] [address] [place] [address] [place] Eosinophils (Bld) [#/Vol] 0.48 10*3/uL High <0.46 [facility] Comment on above: Order Comment: Speci men Type: BLOOD SPECIMEN [facility] Address: [address] [place] [address] Performed By: #### 5 7021-8 #### [facility] CLIA [id number] [address] [place] [address] [place] Eosinophils/100 WBC (Bld) 7.7 % Normal [facility] Comment on above: Order Comment: Speci men Type: BLOOD SPECIMEN [facility] Address: [address] [place] [address] Performed By: #### 5 7021-8 #### [facility] CLIA [id number] [address] [place] [address] [place] Erythrocyte distribution width (RBC) [Ratio] 12.7 % Normal 11.5-15.0 [facility] Comment on above: Order Comment: Speci men Type: BLOOD SPECIMEN [facility] Address: [address] [place] [address] Performed By: #### 5 7021-8 #### [facility] CLIA [id number] [address] [place] [address] [place] Hematocrit (Bld) [Volume fraction] 31.2 % Low 36.0-46.0 [facility] Comment on above: Order Comment: Speci men Type: BLOOD SPECIMEN [facility] Address: [address] [place] [address] Performed By: #### 5 7021-8 #### [facility] CLIA [id number] [address] [place] [address] [place] Hemoglobin (Bld) [Mass/Vol] 10.7 g/dL Low 11.5-15.5 [facility] Comment on above: Order Comment: Speci men Type: BLOOD SPECIMEN [facility] Address: [address] [place] [address] Performed By: #### 5 7021-8 #### [facility] CLIA [id number] [address] [place] [address] [place] IMMATURE GRAN % 0.5 % Normal [facility] Comment on above: Order Comment: Speci men Type: BLOOD SPECIMEN [facility] Address: [address] [place] [address] Performed By: #### 5 7021-8 #### [facility] CLIA [id number] [address] [place] [address] [place] IMMATURE GRAN ABS 0.03 k/uL Normal <0.10 [facility] Comment on above: Order Comment: Speci men Type: BLOOD SPECIMEN [facility] Address: [address] [place] [address] Performed By: #### 5 7021-8 #### [facility] CLIA [id number] [address] [place] [address] Lymphocytes (Bld) [#/Vol] 1.13 10*3/uL Normal 1.00-4.00 [facility] Comment on above: Order Comment: Speci men Type: BLOOD SPECIMEN [facility] Address: [address] [place] [address] Performed By: #### 5 7021-8 #### [facility] CLIA [id number] [address] [place] [address] Lymphocytes/100 WBC (Bld) 18.2 % Normal [facility] Comment on above: Order Comment: Speci men Type: BLOOD SPECIMEN [facility] Address: [address] [place] [address] Performed By: #### 5 7021-8 #### [facility] CLIA [id number] [address] [place] [address] [place] MCH (RBC) [Entitic mass] 29.9 pg Normal 26.0-34.0 [facility] Comment on above: Order Comment: Speci men Type: BLOOD SPECIMEN [facility] Address: [address] [place] [address] Performed By: #### 5 7021-8 #### [facility] CLIA [id number] [address] [place] [address] [place] MCHC (RBC) [Mass/Vol] 34.3 g/dL Normal 30.5-36.0 [facility] Comment on above: Order Comment: Speci men Type: BLOOD SPECIMEN [facility] Address: [address] [place] [address] Performed By: #### 5 7021-8 #### [facility] CLIA [id number] [address] [place] [address] [place] MCV (RBC) [Entitic vol] 87.2 fL Normal 80.0-100.0 [facility] Comment on above: Order Comment: Speci men Type: BLOOD SPECIMEN [facility] Address: [address] [place] [address] Performed By: #### 5 7021-8 #### [facility] CLIA [id number] [address] [place] [address] [place] Monocytes (Bld) [#/Vol] 0.36 10*3/uL Normal <0.87 [facility] Comment on above: Order Comment: Speci men Type: BLOOD SPECIMEN [facility] Address: [address] [place] [address] Performed By: #### 5 7021-8 #### [facility] CLIA [id number] [address] [place] [address] [place] Monocytes/100 WBC (Bld) 5.8 % Normal [facility] Comment on above: Order Comment: Speci men Type: BLOOD SPECIMEN [facility] Address: [address] [place] [address] Performed By: #### 5 7021-8 #### [facility] CLIA [id number] [address] [place] [address] [place] Neutrophils (Bld) [#/Vol] 4.18 10*3/uL Normal 1.45-7.50 [facility] Comment on above: Order Comment: Speci men Type: BLOOD SPECIMEN [facility] Address: [address] [place] [address] Performed By: #### 5 7021-8 #### [facility] CLIA [id number] [address] [place] [address] [place] Neutrophils/100 WBC (Bld) 67.3 % Normal [facility] Comment on above: Order Comment: Speci men Type: BLOOD SPECIMEN [facility] Address: [address] [place] [address] Performed By: #### 5 7021-8 #### [facility] CLIA [id number] [address] [place] [address] [place] Nucleated RBC (Bld) [#/Vol] 10*3/uL Normal <0.01 [facility] Comment on above: Order Comment: Speci men Type: BLOOD SPECIMEN [facility] Address: [address] [place] [address] Performed By: #### 5 7021-8 #### [facility] CLIA [id number] [address] [place] [address] [place] Nucleated RBC/100 WBC (Bld) [Ratio] 0.0 /100 WBC Normal [facility] Comment on above: Order Comment: Speci men Type: BLOOD SPECIMEN [facility] Address: [address] [place] [address] Performed By: #### 5 7021-8 #### [facility] CLIA [id number] [address] [place] [address] [place] Platelet mean volume (Bld) [Entitic vol] 8.7 fL Low 9.0-12.7 [facility] Comment on above: Order Comment: Speci men Type: BLOOD SPECIMEN [facility] Facility[facility] Address: [address] [place] [address] Performed By: #### 5 7021-8 #### [facility] CLIA [id number] [address] [place] [address] [place] Platelets (Bld) [#/Vol] 436 10*3/uL High 150-400 [facility] Comment on above: Order Comment: Speci men Type: BLOOD SPECIMEN [facility] Address: [address] [place] [address] Performed By: #### 5 7021-8 #### [facility] CLIA [id number] [address] [place] [address] [place] RBC (Bld) [#/Vol] 3.58 10*6/uL Low 3.90-5.20 [facility] Comment on above: Order Comment: Speci men Type: BLOOD SPECIMEN [facility] Address: [address] [place] [address] Performed By: #### 5 7021-8 #### [facility] [place] [id number] [address] [place] [address] [place] [facility] WBC (Bld) [#/Vol] 6.21 10*3/uL Normal 3.70-11.00 [facility] Comment on above: Order Comment: Speci men Type: BLOOD SPECIMEN [facility] Address: [address] [place] [address] Performed By: #### 5 7021-8 #### [facility] IA [id number] [address] [place] [address] [place] Magnesium SerPl-mCncon 04-04 Magnesium [Mass/Vol] 2.1 mg/dL Normal 1.7-2.3 [facility] Comment on above: Order Comment: Speci men Type: BLOOD SPECIMENOrdering Facility: [facility] Address: [address] [place] [address] Performed By: #### 2 4321-2, 52081-5, 2777-1 ####[facility] [id number] [place] [address] [place] NURSING PROGon 04-04-2022 NURSING PROG HNO ID: [id number] Author: Dipti Crowley RN Service: Nursing Author Type: Registered Nurse Type: Nursing Progress Note Filed: 04/04/2022 7:47 PM Note Text: Nursing Progress Note Patient Name: Mary Leal Patient Location: [address]/WZ4S-04 __ Daily Note:Patient refusing further IVF. This note was completed by: [facility] NURSING PROG HNO ID: [id number] Author: Dipti Crowley, RN Service: Nursing Author Type: Registered Nurse Type: Nursing Progress Note Filed: 04/04/2022 11:11 AM Note Text: Nursing Progress Note Patient Name: Mary Leal Patient Location: [address]/NR9N-16 __ Daily Note: Patient up in chair and up ambulating in hallway with steady gait. VSS. RA POx. IVF as ordered. 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 Dressing to old ostomy site CDI. Abdomen soft and tender. Patient states, feeling much better . Diet advanced, yet patient did not take in 25% of tray. Patient informed RN that I am leaving today. Do what you gotta do. I can do all of this at home . Dr Lamas paged and notified, but post call. 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 Will continue to monitor. Call light in reach. This note was completed by: [facility] Phosphate SerPl-mCncon 04-04 Phosphate [Mass/Vol] 3.2 mg/dL Normal 2.7-4.8 [facility] Comment on above: Order Comment: Speci men Type: BLOOD SPECIMENOrdering Facility: [facility] Address: [address] [place] [address] [place] [address] Performed By: #### 2 4321-2, 15376-0, 2777-1 ####[facility] [id number] [address] [place] ALLIED HEALTHon 04-03-2022 ALLIED HEALTH HNO ID: [id number] Author: MALAIKA Martinez Service: ? Author Type: Industrial Illuminating Engineer Type: Allied Health Filed: 04/03/2022 5:35 [...] Martinez April 03, 2022 5:35 PM Normal [facility] Basic metabolic 2000 panelon 04-03-2022 Anion gap [Moles/Vol] 10 mmol/L Normal 9-18 [facility] Comment on above: Order Comment: Speci men Type: BLOOD SPECIMENOrdering Facility: [facility] Address: [address] [place] [address] Performed By: #### B MP #### [place] [phone] Calcium [Mass/Vol] 8.4 mg/dL Low 8.5-10.2 [facility] Comment on above: Order Comment: Speci men Type: BLOOD SPECIMENOrdering Facility: [facility] Address: [address] [place] [address] Performed By: #### B MP #### [place] [phone] Chloride [Moles/Vol] 103 mmol/L Normal 97-105 [facility] Comment on above: Order Comment: Speci men Type: BLOOD SPECIMENOrdering Facility: [facility] Address: [address] [place] [address] Performed By: #### B MP #### [place] [phone] CO2 [Moles/Vol] 25 mmol/L Normal 22-30 [facility] Comment on above: Order Comment: Speci men Type: BLOOD SPECIMENOrdering Facility: [facility] Address: [address] [place] [address] Performed By: #### B MP #### [place] [phone] Creatinine [Mass/Vol] 0.60 mg/dL Normal 0.58-0.96 [facility] Comment on above: Order Comment: Speci men Type: BLOOD SPECIMENOrdering Facility: [facility] Address: [address] [place] [address] Performed By: #### B MP #### [place] [phone] ESTIMATED GLOMERULAR FILTRATION RATE 110 mL/min/1.73m??? Normal >=60 [facility] Comment on above: Order Comment: Speci men Type: BLOOD SPECIMENOrdering Facility: [facility] Address: [address] [place] [address] Result Comment: Mary mated Glomerular Filtration Rate [...] GFR. Performed By: #### B MP #### [place] [phone] Glucose [Mass/Vol] 106 mg/dL High 74-99 [facility] Comment on above: Order Comment: Speci men Type: BLOOD SPECIMENOrdering Facility: [facility] Address: [address] [place], [place] [address] Result Comment: The [place] Diabetes Association (ADA) provides guidance for cutoff [...] Standards of Medical Care in Diabetes 2016, [place] [employer]. Diabetes Care. 2016.39(Suppl 1). Performed By: #### B MP #### [place] [phone] Potassium [Moles/Vol] 3.3 mmol/L Low 3.7-5.1 [facility] Comment on above: Order Comment: Speci men Type: BLOOD SPECIMENOrdering Facility: [facility] Address: [address] [place] [address] Performed By: #### B MP #### [place] [phone] Sodium [Moles/Vol] 138 mmol/L Normal 136-144 [facility] Comment on above: Order Comment: Everettei harrison Type: BLOOD SPECIMENOrdering Facility: [facility] Address: [address] [place] [address] Performed By: #### B MP #### [place] [phone] Urea nitrogen [Mass/Vol] 4 mg/dL Low 7-21 [facility] Comment on above: Order Comment: Speci men Type: BLOOD SPECIMENOrdering Facility: [facility] Address: [address] [place] [address] Performed By: #### B MP #### [address] CBC W Auto Differential pane l (Bld)on 04-03-2022 Basophils (Bld) [#/Vol] 0.03 10*3/uL Normal <0.11 [facility] Comment on above: Order Comment: Speci men Type: BLOOD SPECIMENOrdering Facility: [facility] Address: [address] [address] Performed By: #### B MP #### [place] [phone] Basophils/100 WBC (Bld) 0.4 % Normal [facility] Comment on above: Order Comment: Speci men Type: BLOOD SPECIMENOrdering Facility: [facility] Address: [address] [place] [address] Performed By: #### B MP #### [place] [phone] Differential cell count method Nom (Bld) Auto Normal [facility] Comment on above: Order Comment: Speci men Type: BLOOD SPECIMENOrdering Facility: [facility] Address: [address] [place] [address] Performed By: #### B MP #### [place] [phone] Eosinophils (Bld) [#/Vol] 0.48 10*3/uL High <0.46 [facility] Comment on above: Order Comment: Speci men Type: BLOOD SPECIMENOrdering Facility: [facility] Address: [address] [place] [address] Performed By: #### B MP #### [place] [phone] Eosinophils/100 WBC (Bld) 6.5 % Normal [facility] Comment on above: Order Comment: Speci men Type: BLOOD SPECIMENOrdering Facility: [facility] Address: [address] [place] [address] Performed By: #### B MP #### [place] [phone] Erythrocyte distribution width (RBC) [Ratio] 12.5 % Normal 11.5-15.0 [facility] Comment on above: Order Comment: Speci men Type: BLOOD SPECIMENOrdering Facility: [facility] Address: [address] [place] [address] Performed By: #### B MP #### [phone] Hematocrit (Bld) [Volume fraction] 29.5 % Low 36.0-46.0 [facility] Comment on above: Order Comment: Speci men Type: BLOOD SPECIMENOrdering Facility: [facility] Address: [address] [place] [address] Performed By: #### B MP #### [place] [phone] Hemoglobin (Bld) [Mass/Vol] 10.2 g/dL Low 11.5-15.5 [facility] Comment on above: Order Comment: Speci men Type: BLOOD SPECIMENOrdering Facility: [facility] Address: [address] [place] [address] Performed By: #### B MP #### [place] [address] IMMATURE GRAN % 0.5 % Normal [facility] Comment on above: Order Comment: Speci men Type: BLOOD SPECIMENOrdering Facility: [facility] Address: [address] [place] [address] Performed By: #### B MP #### [place] [id number] IMMATURE GRAN ABS 0.04 k/uL Normal <0.10 [facility] Comment on above: Order Comment: Speci men Type: BLOOD SPECIMENOrdering Facility: [facility] Address: [address] [place] [address] Performed By: #### B MP #### [address] Lymphocytes (Bld) [#/Vol] 1.11 10*3/uL Normal 1.00-4.00 [facility] Comment on above: Order Comment: Speci men Type: BLOOD SPECIMENOrdering Facility: [facility] Address: [address] [place] [address] Performed By: #### B MP #### [place] [phone] Lymphocytes/100 WBC (Bld) 15.0 % Normal [facility] Comment on above: Order Comment: Speci men Type: BLOOD SPECIMENOrdering Facility: [facility] Address: [address] [place] [address] Performed By: #### B MP #### [place] [phone] MCH (RBC) [Entitic mass] 30.1 pg Normal 26.0-34.0 [facility] Comment on above: Order Comment: Speci men Type: BLOOD SPECIMENOrdering Facility: [facility] Address: [address] [place] [address] Performed By: #### B MP #### [phone] MCHC (RBC) [Mass/Vol] 34.6 g/dL Normal 30.5-36.0 [facility] Comment on above: Order Comment: Speci men Type: BLOOD SPECIMENOrdering Facility: [facility] Address: [address] [place] [address] Performed By: #### B MP #### [phone] MCV (RBC) [Entitic vol] 87.0 fL Normal 80.0-100.0 [facility] Comment on above: Order Comment: Speci men Type: BLOOD SPECIMENOrdering Facility: [facility] Address: [address] [place] [address] Performed By: #### B MP #### [place] [phone] Monocytes (Bld) [#/Vol] 0.46 10*3/uL Normal <0.87 [facility] Comment on above: Order Comment: Speci men Type: BLOOD SPECIMENOrdering Facility: [facility] Address: [address] [place] [address] Performed By: #### B MP #### [phone] Monocytes/100 WBC (Bld) 6.2 % Normal [facility] Comment on above: Order Comment: Speci men Type: BLOOD SPECIMENOrdering Facility: [facility] Address: [address] [place] [address] Performed By: #### B MP #### [place] [phone] Neutrophils (Bld) [#/Vol] 5.27 10*3/uL Normal 1.45-7.50 [facility] Comment on above: Order Comment: Speci men Type: BLOOD SPECIMENOrdering Facility: [facility] Address: [address] [place] [address] Performed By: #### B MP #### [place] [phone] Neutrophils/100 WBC (Bld) 71.4 % Normal [facility] Comment on above: Order Comment: Speci men Type: BLOOD SPECIMENOrdering Facility: [facility] Address: [address] [place] [address] Performed By: #### B MP #### [phone] Nucleated RBC (Bld) [#/Vol] 10*3/uL Normal <0.01 [facility] Comment on above: Order Comment: Speci men Type: BLOOD SPECIMENOrdering Facility: [facility] Address: [address] [place] [address] Performed By: #### B MP #### [place] [phone] Nucleated RBC/100 WBC (Bld) [Ratio] 0.0 /100 WBC Normal [facility] Comment on above: Order Comment: Speci men Type: BLOOD SPECIMENOrdering Facility: [facility] Address: [address] [place] [address] Performed By: #### B MP #### [phone] Platelet mean volume (Bld) [Entitic vol] 8.6 fL Low 9.0-12.7 [facility] Comment on above: Order Comment: Speci men Type: BLOOD SPECIMENOrdering Facility: [facility] Address: [address] [place] [address] Performed By: #### B MP #### [place] [phone] Platelets (Bld) [#/Vol] 342 10*3/uL Normal 150-400 [facility] Comment on above: Order Comment: Speci men Type: BLOOD SPECIMENOrdering Facility: [facility] Address: [address] [place] [address] Performed By: #### B MP #### [place] [phone] RBC (Bld) [#/Vol] 3.39 10*6/uL Low 3.90-5.20 [facility] Comment on above: Order Comment: Speci men Type: BLOOD SPECIMENOrdering Facility: [facility] Address: [address] [place] [address] Performed By: #### B MP #### [place] [phone] WBC (Bld) [#/Vol] 7.39 10*3/uL Normal 3.70-11.00 [facility] Comment on above: Order Comment: Speci men Type: BLOOD SPECIMENOrdering Facility: [facility] Address: [address] [place] [address] Performed By: #### B MP #### [place] [phone] CONSULT PROGon 04-03-2022 CONSULT PROG HNO ID: [id number] Author: Sarwat Huddleston PA-C Service: Pain Management Author Type: Physician Drilling Superintendent Type: Consult Progress Note Filed: 04/03/2022 8:39 [...] and solution: Yes. Solution Ropi 0.1% at 015//2?e. Adjuvant Pain Medication: See below Current Facility-Administered [...] appears comf (more content not included)... Normal [facility] CT ABD/PEL W IVCONon 022 CT [...] Lower thorax: Visualized lung bases are clear. Conventional Underwriter (topogram) images: No additional findings. IMPRESSION: Postsurgical [...] collection is present in the lower pelvis Hull Sorter: CAPRI Transcribe Date/Time: Apr 03 2022 9:00P Dictated by : SHELBY ESPINOSA MD This examination was interpreted and the report reviewed and electronically signed by: SHELBY ESPINOSA MD on Apr 03 2022 9:12PM EST [id number] [facility] Magnesium SerPl-mCncon 04-03 Magnesium [Mass/Vol] 1.6 mg/dL Low 1.7-2.3 [facility] Comment on above: Order Comment: Speci men Type: BLOOD SPECIMENOrdering Facility: [facility] Address: [address] [place], [place] [id number] Performed By: #### B MP #### [place] [address] NURSING PROGon 04-03-2022 NURSING PROG HNO ID: [id number] Author: Beto Ford RN Service: ? Author Type: Registered Nurse Type: Nursing Progress Note Filed: 04/03/2022 9:39 PM Note Text: Nursing Progress Note Patient Name: Mary Leal Patient Location: [place] [address]/[place] [address] __ Daily Note: 2129: Pt declined to have all oral medications. They just go right through me. I cannot take them. . Made RN aware. This note was completed by: Beto Ford [facility] NURSING PROG HNO ID: [id number] Author: Dipti Crowley RN Service: Nursing Author Type: Registered Nurse Type: Nursing Progress Note Filed: 04/03/2022 2:51 PM Note Text: Nursing Progress Note Patient Name: Mary Leal Patient Location: PK/ __ Daily Note:Patient unable to tolerate powder form of potassium due to nausea. Patient unable to tolerate IV form, it feels like It's paralyzing my arm . Attempted to dilute boluses and lower rates with no success. SR paged with events ([phone]). Awaiting further orders. This note was completed by: Dipti [facility] NURSING PROG HNO ID: [id number] Author: Dipti Crowley RN Service: Nursing Author Type: Registered Nurse Type: Nursing Progress Note Filed: 04/03/2022 11:33 AM Note Text: Nursing Progress Note Patient Name: Mary Leal Patient Location: / __ Daily Note: Patient Up independently in room and in hallway. IVF infusing as ordered. B/L Tap Blocks discontinued and removed by PA. Old ostomy dressing changed. Scant amount of drainage on dressing. Fresh ABD with tape applied. 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 BS Hypoactive. No flatus per [...] monitor. This note was completed by: Dipti [facility] NURSING PROG HNO ID: [id number] Author: Chava Remy RN Service: PICC Team [...] 03, 2022 TIME: 8:37 AM PAGER/CONTACT #: [facility] NURSING PROG HNO ID: [id number] Author: Kev Leone RN Service: ? Author Type: Registered Nurse Type: Nursing Progress Note Filed: 04/03/2022 3:50 AM Note Text: Nursing Progress Note Patient Name: Mary Leal Patient Location: [place] [address]/[place] [address] __ Daily Note: 2100: Pt refusing all PO meds at this time, states she's concerned that she's not digesting them properly. Paan currently being controlled with bilateral blocks and PRN IV pain medication. This note was completed by: Kev Leone [facility] Phosphate SerPl-mCncon 04-03 Phosphate [Mass/Vol] 3.3 mg/dL Normal 2.7-4.8 [facility] Comment on above: Order Comment: Speci men Type: BLOOD SPECIMENOrdering Facility: [facility] Address: [address] [place] [address] Performed By: #### B MP #### [place] [id number] [place] [address] ALLIED HEALTHon 04-02-2022 ALLIED HEALTH HNO ID: [id number] Author: RT Ban(R) Service: Radiology Author Type: [...] RT Ban(R) April 02, 2022 9:12 AM [facility] CONSULT PROGon 04-02-2022 CONSULT PROG HNO ID: [id number] Author: Sarwat Huddleston PA-C Service: Pain Management Author Type: Physician Drilling Superintendent Type: Consult Progress Note Filed: 04/02/2022 9:00 [...] Hematocrit 29.3 5 (more content not included)... [facility] NURSING PROGon 04-02-2022 NURSING PROG HNO ID: [id number] Author: Dipti Crowley, RN Service: Nursing Author Type: Registered Nurse Type: Nursing Progress Note Filed: 04/02/2022 1:23 PM Note Text: Nursing Progress Note Patient Name: Mary Leal Patient Location: [address]/YZ1X-97 __ Daily Note: Patient AANDOx3. VSS. RA POx. [...] This note was completed by: Dipti Crowley [facility] XR ABDOMEN 1V SUPINEon 04-02 XR [...] may be of help for further evaluation. Hull Sorter: CAPRI Transcribe Date/Time: Apr 02 2022 9:16A Dictated by : JOAQUIN BRYANT MD This examination was interpreted and the report reviewed and electronically signed by: JOAQUIN BRYANT MD on Apr 02 2022 9:19AM EST [id number] Normal [facility] Basic metabolic 2000 panelon 04-01-2022 Anion gap [Moles/Vol] 9 mmol/L Normal 9-18 [facility] Comment on above: Order Comment: Speci men Type: BLOOD SPECIMENOrdering Facility: [facility] Address: [address] [place] [address] Performed By: #### B MP #### [place] [phone] Calcium [Mass/Vol] 7.9 mg/dL Low 8.5-10.2 [facility] Comment on above: Order Comment: Speci men Type: BLOOD SPECIMENOrdering Facility: [facility] Address: [address] [place] [address] Performed By: #### B MP #### [place] [phone] Chloride [Moles/Vol] 106 mmol/L High 97-105 [facility] Comment on above: Order Comment: Speci men Type: BLOOD SPECIMENOrdering Facility: [facility] Address: [address] [place] [address] Performed By: #### B MP #### [phone] CO2 [Moles/Vol] 26 mmol/L Normal 22-30 [facility] Comment on above: Order Comment: Speci men Type: BLOOD SPECIMENOrdering Facility: [facility] Address: [address] [place] [address] Performed By: #### B MP #### [place] [phone] Creatinine [Mass/Vol] 0.68 mg/dL Normal 0.58-0.96 [facility] Comment on above: Order Comment: Leanne harrison Type: BLOOD SPECIMENOrdering Facility: [facility] Address: [address] [place] [address] Performed By: #### B MP #### [place] [id number] [place] [address] ESTIMATED GLOMERULAR FILTRATION RATE 107 mL/min/1.73m??? Normal >=60 [facility] Comment on above: Order Comment: Leanne [facility] Type: BLOOD SPECIMENOrdering Facility: [facility] Address: [address] [place] [address] Result Comment: Mary mated Glomerular Filtration Rate [...] GFR. Performed By: #### B MP #### [place] [address] Glucose [Mass/Vol] 99 mg/dL Normal 74-99 [facility] Comment on above: Order Comment: Leanne harrison Type: BLOOD SPECIMENOrdering Facility: [facility] Address: [address] [place] [address] Result Comment: The [place] Diabetes Association (ADA) provides guidance for cutoff [...] Standards of Medical Care in Diabetes 2016, [place] [employer]. Diabetes Care. 2016.39(Suppl 1). Performed By: #### B MP #### [place] [address] Potassium [Moles/Vol] 3.7 mmol/L Normal 3.7-5.1 [facility] Comment on above: Order Comment: Speci men Type: BLOOD SPECIMENOrdering Facility: [facility] Address: [address] [place] [address] Performed By: #### B MP #### [place] [phone] Sodium [Moles/Vol] 141 mmol/L Normal 136-144 [facility] Comment on above: Order Comment: Speci men Type: BLOOD SPECIMENOrdering Facility: [facility] Address: [address] [place] [address] Performed By: #### B MP #### [place] [phone] Urea nitrogen [Mass/Vol] 4 mg/dL Low 7-21 [facility] Comment on above: Order Comment: Speci men Type: BLOOD SPECIMENOrdering Facility: [facility] Address: [address] [place] [address] Performed By: #### B MP #### [place] [phone] CBC panel Auto (Bld)on 04-01 Erythrocyte distribution width (RBC) [Ratio] 12.4 % Normal 11.5-15.0 [facility] Comment on above: Order Comment: Speci men Type: BLOOD SPECIMEN [facility] Address: [address] [place] [address] Performed By: #### 5 8410-2 #### [facility] CLIA [id number] [address] [place] [address] [place] Hematocrit (Bld) [Volume fraction] 29.3 % Low 36.0-46.0 [facility] Comment on above: Order Comment: Speci men Type: BLOOD SPECIMEN [facility] Address: [address] [place] [address] Performed By: #### 5 8410-2 #### [facility] CLIA [id number] [address] [place] [address] OF [facility] Hemoglobin (Bld) [Mass/Vol] 9.6 g/dL Low 11.5-15.5 [facility] Comment on above: Order Comment: Speci men Type: BLOOD SPECIMEN [facility] Address: [address] [place] [address] Performed By: #### 5 8410-2 #### [facility] CLIA [id number] [address] [place] [address] [place] MCH (RBC) [Entitic mass] 29.4 pg Normal 26.0-34.0 [facility] Comment on above: Order Comment: Speci men Type: BLOOD SPECIMEN [facility] Address: [address] [place] [address] Performed By: #### 5 8410-2 #### [facility] CLIA [id number] [address] [place] [address] [place] MCHC (RBC) [Mass/Vol] 32.8 g/dL Normal 30.5-36.0 [facility] Comment on above: Order Comment: Speci men Type: BLOOD SPECIMEN [facility] Address: [address] [place] [address] Performed By: #### 5 8410-2 #### [facility] CLIA [id number] [address] [place] [address] OF [place] [facility] (RBC) [Entitic vol] 89.9 fL Normal 80.0-100.0 [facility] Comment on above: Order Comment: Speci men Type: BLOOD SPECIMEN [facility] Facility[facility] Address: [address] [place] [address] Performed By: #### 5 8410-2 #### [facility] CLIA [id number] [address] [place] [address] Nucleated RBC (Bld) [#/Vol] 10*3/uL Normal <0.01 [facility] Comment on above: Order Comment: Speci men Type: BLOOD SPECIMEN Ordering Facility: [facility] Address: [address] [place] [address] Performed By: #### 5 8410-2 #### [facility] CLIA [id number] [address] [place] [address] [place] Platelet mean volume (Bld) [Entitic vol] 8.9 fL Low 9.0-12.7 [facility] Comment on above: Order Comment: Speci men Type: BLOOD SPECIMEN [facility]ing Facility[facility] Address: [address] [place] [address] Performed By: #### 5 8410-2 #### [facility] CLIA [id number] [address] [place] [address] [place] Platelets (Bld) [#/Vol] 282 10*3/uL Normal 150-400 [facility] Comment on above: Order Comment: Speci men Type: BLOOD SPECIMEN [facility] Address: [address] [place] [address] Performed By: #### 5 8410-2 #### [facility] CLIA [id number] [address] [place] [address] [place] RBC (Bld) [#/Vol] 3.26 10*6/uL Low 3.90-5.20 [facility] Comment on above: Order Comment: Speci men Type: BLOOD SPECIMEN [facility] Address: [address] [place] [address] Performed By: #### 5 8410-2 #### [facility] CLIA [id number] [address] [place] [address] [place] WBC (Bld) [#/Vol] 7.39 10*3/uL Normal 3.70-11.00 [facility] Comment on above: Order Comment: Speci men Type: BLOOD SPECIMEN [facility] Address: [address] [place] [address] Performed By: #### 5 8410-2 #### [facility] CLIA [id number] [place] [address] [place] CONSULT PROGon 04-01-2022 CONSULT PROG HNO ID: [id number] Author: Joslyn Jain APRN.KWESI Service: Pain Management [...] 0.67 Sod (more content not included)... Normal [facility] Magnesium SerPl-mCncon 04-01 Magnesium [Mass/Vol] 1.7 mg/dL Normal 1.7-2.3 [facility] Comment on above: Order Comment: Speci men Type: BLOOD SPECIMENOrdering Facility: [facility] Address: [address] [place] [address] Performed By: #### B MP #### [place] [address] NURSING PROGon 04-01-2022 NURSING PROG HNO ID: [id number] Author: Eagle Gu RN Service: ? Author Type: Registered Nurse Type: Nursing Progress Note Filed: 04/01/2022 9:56 PM Note Text: Nursing Progress Note Patient Name: Mary Leal Patient Location: [place] [id number] __ Daily Note:04/01/222038 Pt is alert and oriented x3. Surgical sites intact. Tap blocks x2 intact. Made SROC aware of Pt experiencing sharp/stabbing pain in abdomen, rating 9/10. SROC recommended use of PRN Dilaudid This note was completed by: Eagle Gu [facility] NURSING PROG HNO ID: [id number] Author: Eagle Gu RN Service: ? Author Type: Registered Nurse Type: Nursing Progress Note Filed: 04/01/2022 1:52 AM Note Text: Nursing Progress Note Patient Name: Mary Leal Patient Location: [place] [address]/[address] __ Daily Note:03/31/222030 Pt is alert and oriented x3. Surgical sites intact. Nerve blocks x2 intact. This note was completed by: [facility] Phosphate SerPl-mCncon 04-01 Phosphate [Mass/Vol] 2.8 mg/dL Normal 2.7-4.8 [facility] Comment on above: Order Comment: Leanne terry Type: BLOOD SPECIMENOrdering Facility: [facility] Address: [address] [place], [place] [address] Performed By: #### B #### [facility] [address] [place] [id number] Basic metabolic 2000 panelon 03-31-2022 Anion gap [Moles/Vol] 10 mmol/L Normal 9-18 [facility] Comment on above: Order Comment: Leanne terry Type: BLOOD SPECIMEN [facility] Address: [address] [place], [place] [address] Performed By: #### 5 8410-2 #### [facility] CLIA [id number] [address] [place] [address] [place] Calcium [Mass/Vol] 8.4 mg/dL Low 8.5-10.2 [facility] Comment on above: Order Comment: Speci men Type: BLOOD SPECIMEN [facility] Address: [address] [place] [address] Performed By: #### 5 8410-2 #### [facility] CLIA [id number] [address] [place] [address] [place] Chloride [Moles/Vol] 107 mmol/L High 97-105 [facility] Comment on above: Order Comment: Speci men Type: BLOOD SPECIMEN [facility] Address: [address] [place] [address] Performed By: #### 5 8410-2 #### [facility] CLIA [id number] [address] [place] [address] [place] CO2 [Moles/Vol] 23 mmol/L Normal 22-30 [facility] Comment on above: Order Comment: Speci men Type: BLOOD SPECIMEN [facility] Address: [address] [place] [address] Performed By: #### 5 8410-2 #### [facility] CLIA [id number] [address] [place] [address] [place] Creatinine [Mass/Vol] 0.67 mg/dL Normal 0.58-0.96 [facility] Comment on above: Order Comment: Speci men Type: BLOOD SPECIMEN [facility] Address: [address] [place] [address] Performed By: #### 5 8410-2 #### [facility] CLIA [id number] [address] [place] [address] [place] ESTIMATED GLOMERULAR FILTRATION RATE 107 mL/min/1.73m??? Normal >=60 [facility] Comment on above: Order Comment: Speci men Type: BLOOD SPECIMEN [facility] Address: [address] [place], [place] [address] Result Comment: Mary mated Glomerular Filtration Rate [...] GFR. Performed By: #### 5 8410-2 #### [facility] CLIA [id number] [address] [place] [address] [place] Glucose [Mass/Vol] 84 mg/dL Normal 74-99 [facility] Comment on above: Order Comment: Leanne terry Type: BLOOD SPECIMEN [facility] Address: [address] [place] [address] Result Comment: The [place] Diabetes [employer] (ADA) provides guidance for cutoff [...] Standards of Medical Care in Diabetes 2016, [place] [employer]. Diabetes Care. 2016.39(Suppl 1). Performed By: #### 5 8410-2 #### [facility] CLIA [id number] [address] [place] [address] [place] Potassium [Moles/Vol] 3.8 mmol/L Normal 3.7-5.1 [facility] Comment on above: Order Comment: Leanne terry Type: BLOOD SPECIMEN [facility] Address: [address] [place] [address] Performed By: #### 5 8410-2 #### [facility] CLIA [id number] [address] [place] Sodium [Moles/Vol] 140 mmol/L Normal 136-144 [facility] Comment on above: Order Comment: Speci men Type: BLOOD SPECIMEN [facility] Address: [address] [place] [address] Performed By: #### 5 8410-2 #### [facility] CLIA [id number] [address] [place] [address] [place] Urea nitrogen [Mass/Vol] 11 mg/dL Normal 7-21 [facility] Comment on above: Order Comment: Speci men Type: BLOOD SPECIMEN [facility] Address: [address] [place] [address] Performed By: #### 5 8410-2 #### [facility] CLIA [id number] [address] [place] [address] [place] CBC W Auto Differential pane l (Bld)on 03-31-2022 Basophils (Bld) [#/Vol] 0.03 10*3/uL Normal <0.11 [facility] Comment on above: Order Comment: Speci men Type: BLOOD SPECIMEN [facility] Address: [address] [place] [address] Performed By: #### 5 7021-8 #### [facility] CLIA [id number] [address] [place] [address] [place] Basophils/100 WBC (Bld) 0.4 % Normal [facility] Comment on above: Order Comment: Speci men Type: BLOOD SPECIMEN [facility] Address: [address] [place] [address] Performed By: #### 5 7021-8 #### [facility] CLIA [id number] [address] [place] [address] [place] Differential cell count method Nom (Bld) Auto Normal [facility] Comment on above: Order Comment: Speci men Type: BLOOD SPECIMEN [facility] Address: [address] [place] [address] Performed By: #### 5 7021-8 #### [facility] CLIA [id number] [place] [address] [place] Eosinophils (Bld) [#/Vol] 0.38 10*3/uL Normal <0.46 [facility] Comment on above: Order Comment: Speci men Type: BLOOD SPECIMEN [facility] Address: [address] [place] [address] Performed By: #### 5 7021-8 #### [facility] CLIA [id number] [address] [place] [address] [place] Eosinophils/100 WBC (Bld) 4.4 % Normal [facility] Comment on above: Order Comment: Speci men Type: BLOOD SPECIMEN [facility] Address: [address] [place] [address] Performed By: #### 5 7021-8 #### [facility] CLIA [id number] [address] [place] [address] [place] Erythrocyte distribution width (RBC) [Ratio] 12.6 % Normal 11.5-15.0 [facility] Comment on above: Order Comment: Speci men Type: BLOOD SPECIMEN [facility] Address: [address] [place] [address] Performed By: #### 5 7021-8 #### [facility] CLIA [id number] [address] [place] [address] [place] Hematocrit (Bld) [Volume fraction] 30.0 % Low 36.0-46.0 [facility] Comment on above: Order Comment: Speci men Type: BLOOD SPECIMEN [facility] Address: [address] [place] [address] Performed By: #### 5 7021-8 #### [facility] CLIA [id number] [address] [place] [address] [place] Hemoglobin (Bld) [Mass/Vol] 9.9 g/dL Low 11.5-15.5 [facility] Comment on above: Order Comment: Speci men Type: BLOOD SPECIMEN [facility] Address: [address] [place] [address] Performed By: #### 5 7021-8 #### [facility] CLIA [id number] [address] [place] [address] [place] [facility] [place] IMMATURE GRAN % 0.4 % Normal [facility] Comment on above: Order Comment: Speci men Type: BLOOD SPECIMEN [facility] Address: [address] [place] [address] Performed By: #### 5 7021-8 #### [facility] CLIA [id number] [address] [place] [address] [place] IMMATURE GRAN ABS 0.03 k/uL Normal <0.10 [facility] Comment on above: Order Comment: Speci men Type: BLOOD SPECIMEN [facility] Address: [address] [place] [address] Performed By: #### 5 7021-8 #### [facility] CLIA [id number] [address] [place] [address] [place] Lymphocytes (Bld) [#/Vol] 1.24 10*3/uL Normal 1.00-4.00 [facility] Comment on above: Order Comment: Speci men Type: BLOOD SPECIMEN [facility] Address: [address] [place] [address] Performed By: #### 5 7021-8 #### [facility] CLIA [id number] [address] [place] [address] [place] Lymphocytes/100 WBC (Bld) 14.5 % Normal [facility] Comment on above: Order Comment: Speci men Type: BLOOD SPECIMEN [facility] Address: [address] [place] [address] Performed By: #### 5 7021-8 #### [facility] CLIA [id number] [address] [place] [address] [place] MCH (RBC) [Entitic mass] 29.6 pg Normal 26.0-34.0 [facility] Comment on above: Order Comment: Speci men Type: BLOOD SPECIMEN [facility] Address: [address] [place], [place] [address] Performed By: #### 5 7021-8 #### [facility] CLIA [id number] [address] [place] [address] [place] MCHC (RBC) [Mass/Vol] 33.0 g/dL Normal 30.5-36.0 [facility] Comment on above: Order Comment: Speci men Type: BLOOD SPECIMEN [facility] Address: [address] [place] [address] Performed By: #### 5 7021-8 #### [facility] CLIA [id number] [address] [place] [address] [place] MCV (RBC) [Entitic vol] 89.8 fL Normal 80.0-100.0 [facility] Comment on above: Order Comment: Speci men Type: BLOOD SPECIMEN [facility] Address: [address] [place] [address] Performed By: #### 5 7021-8 #### [facility] CLIA [id number] [address] [place] [address] [place] Monocytes (Bld) [#/Vol] 0.48 10*3/uL Normal <0.87 [facility] Comment on above: Order Comment: Speci men Type: BLOOD SPECIMEN [facility] Address: [address] [place] [address] Performed By: #### 5 7021-8 #### [facility] CLIA [id number] [address] [place] [address] [place] Monocytes/100 WBC (Bld) 5.6 % Normal [facility] Comment on above: Order Comment: Speci men Type: BLOOD SPECIMEN [facility] Address: [address] [place] [address] Performed By: #### 5 7021-8 #### [facility] CLIA [id number] [address] [place] [address] [place] Neutrophils (Bld) [#/Vol] 6.41 10*3/uL Normal 1.45-7.50 [facility] Comment on above: Order Comment: Speci men Type: BLOOD SPECIMEN [facility] Address: [address] [place] [address] Performed By: #### 5 7021-8 #### [facility] CLIA [id number] [address] [place] [address] [place] Neutrophils/100 WBC (Bld) 74.7 % Normal [facility] Comment on above: Order Comment: Speci men Type: BLOOD SPECIMEN [facility] Address: [address] [place] [address] Performed By: #### 5 7021-8 #### [facility] CLIA [id number] [address] [place] [address] [place] Nucleated RBC (Bld) [#/Vol] 10*3/uL Normal <0.01 [facility] Comment on above: Order Comment: Speci men Type: BLOOD SPECIMEN [facility] Address: [address] [place] [address] Performed By: #### 5 7021-8 #### [facility] CLIA [id number] [address] [place] [address] [place] Nucleated RBC/100 WBC (Bld) [Ratio] 0.0 /100 WBC Normal [facility] Comment on above: Order Comment: Speci men Type: BLOOD SPECIMEN [facility] Address: [address] [place] [address] Performed By: #### 5 7021-8 #### [facility] CLIA [id number] [address] [place] [address] [place] Platelet mean volume (Bld) [Entitic vol] 9.0 fL Normal 9.0-12.7 [facility] Comment on above: Order Comment: Speci men Type: BLOOD SPECIMEN [facility] Address: [address] [place] [address] Performed By: #### 5 7021-8 #### [facility] CLIA [id number] [address] [place] [address] [place] Platelets (Bld) [#/Vol] 246 10*3/uL Normal 150-400 [facility] Comment on above: Order Comment: Speci men Type: BLOOD SPECIMEN [facility] Address: [address] [place] [address] Performed By: #### 5 7021-8 #### [facility] CLIA [id number] [address] [place] [address] [place] RBC (Bld) [#/Vol] 3.34 10*6/uL Low 3.90-5.20 [facility] Comment on above: Order Comment: Speci men Type: BLOOD SPECIMEN [facility] Address: [address] [place] [address] Performed By: #### 5 7021-8 #### [facility] CLIA [id number] [address] [place] [address] [place] WBC (Bld) [#/Vol] 8.57 10*3/uL Normal 3.70-11.00 [facility] Comment on above: Order Comment: Speci men Type: BLOOD SPECIMEN [facility] Address: [address] [place] [address] Performed By: #### 5 7021-8 #### [facility] CLIA [id number] [address] [place] [address] OF [facility] CONSULT PROGon 03-31-2022 CONSULT PROG HNO ID: [id number] Author: Joslyn Jain APRN.NET WASHER Service: Pain Management Author Type: Nurse Practitioner [...] and solution: Yes. Solution Ropivacaine 0.2%, rate 08/30/2 ml/hr. Adjuvant Pain Medication: See below. Current [...] AND U (more content not included)... Normal [facility] Magnesium SerPl-mCncon 03-31 Magnesium [Mass/Vol] 1.6 mg/dL Low 1.7-2.3 [facility] Comment on above: Order Comment: Speci men Type: BLOOD SPECIMEN [facility] Address: [address] [place] [address] Performed By: #### 5 8410-2 #### [facility] CLIA [id number] [address] [place] [address] OF [facility] NURSING PROGon 03-31-2022 NURSING PROG HNO ID: [id number] Author: Daisy Amaya RN Service: Nursing Author Type: Registered Nurse Type: Nursing Progress Note Filed: 03/31/2022 4:56 PM Note Text: Nursing Progress Note Patient Name: Mary Leal Patient Location: [address]-40 __ Daily Note: 0931- Pt A+Ox3. Up with standby assist. Ambulated pod multiple times. Laps intact. Old ostomy site WNL. Pt having liquid brown BMs. Voiding adq. No nausea, cp, or sob. Taps infusing per JAN. Pain controlled with PRN oxy. No further needs at this time. This note was completed by: Daisy Amaya [facility] NURSING PROG HNO ID: [id number] Author: Mariluz Carnes RN Service: Nursing Author Type: Registered Nurse Type: Nursing Progress Note Filed: 03/30/2022 11:47 PM Note Text: Nursing Progress Note Patient Name: Mary Leal Patient Location: [address] __ Daily Note: Pt's BP 90/52. Patient asymptomatic. Surgery made aware. Order in for Bol[facility] LR 500CC's. This note was completed by: Mariluz Carnes [facility] Phosphate SerPl-mCncon 03-31 Phosphate [Mass/Vol] 2.7 mg/dL Normal 2.7-4.8 [facility] Comment on above: Order Comment: Speci men Type: BLOOD SPECIMEN [facility] Address: [address] [place] [address] Performed By: #### 5 8410-2 #### [facility] CLIA [id number] [address] [place] [address] [place] Basic metabolic 2000 panelon 03-30-2022 Anion gap [Moles/Vol] 10 mmol/L Normal 9-18 [facility] Comment on above: Order Comment: Speci men Type: BLOOD SPECIMEN [facility] Address: [address] [place] [address] Performed By: #### 1 9123-9, 2777-1, 40779-4 #### [facility] CLIA [id number] [address] [place] [address] [place] Calcium [Mass/Vol] 8.5 mg/dL Normal 8.5-10.2 [facility] Comment on above: Order Comment: Speci men Type: BLOOD SPECIMEN [facility] Address: [address] Performed By: #### 1 9123-9, 2777-1, 10086-4 #### [facility] CLIA [id number] [address] [place] [address] [place] Chloride [Moles/Vol] 103 mmol/L Normal 97-105 [facility] Comment on above: Order Comment: Speci men Type: BLOOD SPECIMEN [facility] Address: [address] [place] [address] Performed By: #### 1 9123-9, 2777-1, 26093-8 #### [facility] CLIA [id number] [address] [place] [address] [place] CO2 [Moles/Vol] 24 mmol/L Normal 22-30 [facility] Comment on above: Order Comment: Speci men Type: BLOOD SPECIMEN [facility] Address: [address] [place] [address] Performed By: #### 1 9123-9, 27705-06, 25695-3 #### [facility] CLIA [id number] [address] [place] [address] [place] Creatinine [Mass/Vol] 0.69 mg/dL Normal 0.58-0.96 [facility] Comment on above: Order Comment: Speci men Type: BLOOD SPECIMEN [facility] Address: [address] [place] [address] Performed By: #### 1 9123-9, 2777, 59157-6 #### [facility] CLIA [id number] [address] [place] [address] [place] ESTIMATED GLOMERULAR FILTRATION RATE 107 mL/min/1.73m??? Normal >=60 [facility] Comment on above: Order Comment: Speci men Type: BLOOD SPECIMEN [facility] Address: [address] [place] [address] Result Comment: Mary mated Glomerular Filtration Rate [...] GFR. Performed By: #### 1 9123-9, 2777-1, 92992-5 #### [facility] CLIA [id number] [address] [place] [address] [place] Glucose [Mass/Vol] 117 mg/dL High 74-99 [facility] Comment on above: Order Comment: Leanne terry Type: BLOOD SPECIMEN [facility] Address: [address] [place] [address] Result Comment: The [place] [employer] (ADA) provides guidance for cutoff [...] Standards of Medical Care in Diabetes 2016, [place] [employer]. Diabetes Care. 2016.39(Suppl 1). Performed By: #### 1 9123-9, 2777-, 25390-3 #### [facility] CLIA [id number] [place] [address] [place] Potassium [Moles/Vol] 3.9 mmol/L Normal 3.7-5.1 [facility] Comment on above: Order Comment: Leanne terry Type: BLOOD SPECIMEN [facility] Address: [address] [place] [address] Performed By: #### 1 9123-9, 2777-1, 26378-3 #### [facility] CLIA [id number] [address] [place] [id number] [place] Sodium [Moles/Vol] 137 mmol/L Normal 136-144 [facility] Comment on above: Order Comment: Speci men Type: BLOOD SPECIMEN [facility] Address: [address] [place] [address] Performed By: #### 1 9123-9, 2777-, 27762-3 #### [facility] CLIA [id number] [address] [place] [address] [place] Urea nitrogen [Mass/Vol] 13 mg/dL Normal 7-21 [facility] Comment on above: Order Comment: Speci men Type: BLOOD SPECIMEN [facility] Address: [address] [place] [address] Performed By: #### 1 9123-9, 27705-06, 81113-3 #### [facility] CLIA [id number] [address] [place] [address] [place] CBC panel Auto (Bld)on 03-30 Erythrocyte distribution width (RBC) [Ratio] 12.8 % Normal 11.5-15.0 [facility] Comment on above: Order Comment: Speci men Type: BLOOD SPECIMEN [facility] Address: [address] [place] [address] Performed By: #### 5 8410-2 #### [facility] CLIA [id number] [address] [place] [address] [place] Hematocrit (Bld) [Volume fraction] 35.0 % Low 36.0-46.0 [facility] Comment on above: Order Comment: Speci men Type: BLOOD SPECIMEN [facility] Address: [address] [place], [place] [address] Performed By: #### 5 8410-2 #### [facility] CLIA [id number] [address] [place] [address] [place] Hemoglobin (Bld) [Mass/Vol] 11.8 g/dL Normal 11.5-15.5 [facility] Comment on above: Order Comment: Speci men Type: BLOOD SPECIMEN [facility] Address: [address] [place] [address] Performed By: #### 5 8410-2 #### [facility] CLIA [id number] [address] [place] [address] STATES [facility] MCH (RBC) [Entitic mass] 30.6 pg Normal 26.0-34.0 [facility] Comment on above: Order Comment: Speci men Type: BLOOD SPECIMEN [facility] Facility[facility] Address: [address] [place] [address] Performed By: #### 5 8410-2 #### [facility] CLIA [id number] [address] [place] [address] [place] MCHC (RBC) [Mass/Vol] 33.7 g/dL Normal 30.5-36.0 [facility] Comment on above: Order Comment: Speci men Type: BLOOD SPECIMEN Ordering Facility: [facility] Address: [address] [place] [address] Performed By: #### 5 8410-2 #### [facility] CLIA [id number] [address] [place] [address] MCV (RBC) [Entitic vol] 90.7 fL Normal 80.0-100.0 [facility] Comment on above: Order Comment: Speci men Type: BLOOD SPECIMEN Ordering Facility: [facility] Address: [address] [place] [address] Performed By: #### 5 8410-2 #### [facility] CLIA [id number] [address] [place] [address] [place] Nucleated RBC (Bld) [#/Vol] 10*3/uL Normal <0.01 [facility] Comment on above: Order Comment: Speci men Type: BLOOD SPECIMEN [facility] Facility[facility] Address: [address] [place] [address] Performed By: #### 5 8410-2 #### [facility] CLIA [id number] [address] [place] [address] [place] Platelet mean volume (Bld) [Entitic vol] 8.9 fL Low 9.0-12.7 [facility] Comment on above: Order Comment: Speci men Type: BLOOD SPECIMEN [facility] Facility[facility] Address: [address] [place] [address] Performed By: #### 5 8410-2 #### [facility] CLIA [id number] [place] Platelets (Bld) [#/Vol] 293 10*3/uL Normal 150-400 [facility] Comment on above: Order Comment: Speci men Type: BLOOD SPECIMEN [facility] Address: [address] [place] [address] Performed By: #### 5 8410-2 #### [facility] CLIA [id number] [address] [place] [address] [place] RBC (Bld) [#/Vol] 3.86 10*6/uL Low 3.90-5.20 [facility] Comment on above: Order Comment: Speci men Type: BLOOD SPECIMEN [facility] Address: [address] [place] [address] Performed By: #### 5 8410-2 #### [facility] CLIA [id number] [address] [place] [address] [place] WBC (Bld) [#/Vol] 11.25 10*3/uL High 3.70-11.00 [facility] Comment on above: Order Comment: Speci men Type: BLOOD SPECIMEN [facility] Address: [address] [place] [address] Performed By: #### 5 8410-2 #### [facility] CLIA [id number] [place] [address] [place] CONSULT PROGon 03-30-2022 CONSULT PROG HNO ID: [id number] Author: Joslyn Jain APRN.NET WASHER Service: Pain Management Author Type: Nurse Practitioner [...] eGFR >= (more content not included)... Normal [facility] Magnesium [Mass/Vol] 1.6 mg/dL Low 1.7-2.3 [facility] Comment on above: Order Comment: Speci men Type: BLOOD SPECIMEN [facility] Address: [address] [place] [address] Performed By: #### 1 9123-9, 2777-1, 88373-0 #### [facility] CLIA [id number] [address] [place] [address] [place] [facility] Phosphate [Mass/Vol] 2.9 mg/dL Normal 2.7-4.8 [facility] Comment on above: Order Comment: Speci men Type: BLOOD SPECIMEN [facility] Address: [address] [place] [address] Performed By: #### 1 9123-9, 2777-1, 76700-6 #### [facility] CLIA [id number] [place] [address] [place] ANES POSTPROC EVALon 022 ANES POSTPROC EVAL HNO ID: [id number] Author: Nathanael Craig DO Service: Anesthesiology Author Type: Anesthesiologist Type: Anesthesia Postprocedure Evaluation Filed: 03/29/2022 8:29 AM Note Text: POST ANESTHESIA EVALUATION NOTE : 1970 Procedure Summary Date: 03/28/22 Room / Location: OR12 / [facility] OR Anesthesia Start: 0908 Anesthesia Stop: 163 Procedures: LAPAROSCOPIC TOTAL COLECTOMY [...] March 29, 2022 TIME: 8:29 AM CSN: [id number] Normal [facility] Basic metabolic 2000 panelon 03-29-2022 Anion gap [Moles/Vol] 9 mmol/L Normal 9-18 [facility] Comment on above: Order Comment: Speci men Type: BLOOD SPECIMEN [facility] Address: [address] [place], [place] [address] Performed By: #### 5 8410-2 #### [facility] CLIA [id number] [place] [address] [place] Calcium [Mass/Vol] 7.9 mg/dL Low 8.5-10.2 [facility] Comment on above: Order Comment: Speci men Type: BLOOD SPECIMEN [facility] Address: [address] [place] [address] Performed By: #### 5 8410-2 #### [facility] CLIA [id number] [address] [place] [address] [place] Chloride [Moles/Vol] 105 mmol/L Normal 97-105 [facility] Comment on above: Order Comment: Speci men Type: BLOOD SPECIMEN [facility] Address: [address] [place] [address] Performed By: #### 5 8410-2 #### [facility] CLIA [id number] [address] [place] [address] [place] CO2 [Moles/Vol] 24 mmol/L Normal 22-30 [facility] Comment on above: Order Comment: Speci men Type: BLOOD SPECIMEN [facility] Address: [address] [place] [address] Performed By: #### 5 8410-2 #### [facility] CLIA [id number] [address] [place] [address] [place] Creatinine [Mass/Vol] 0.70 mg/dL Normal 0.58-0.96 [facility] Comment on above: Order Comment: Speci men Type: BLOOD SPECIMEN [facility] Address: [address] [place] [address] Performed By: #### 5 8410-2 #### [facility] CLIA [id number] [address] [place] [address] [place] ESTIMATED GLOMERULAR FILTRATION RATE 106 mL/min/1.73m??? Normal >=60 [facility] Comment on above: Order Comment: Speci men Type: BLOOD SPECIMEN [facility] Address: [address] [place] [address] Result Comment: Mary mated Glomerular Filtration Rate [...] GFR. Performed By: #### 5 8410-2 #### [facility] CLIA [id number] [address] [place] [address] [place] Glucose [Mass/Vol] 92 mg/dL Normal 74-99 [facility] Comment on above: Order Comment: Speci men Type: BLOOD SPECIMEN [facility] Address: [address] [place] [address] Result Comment: The [place] Diabetes Association (ADA) provides guidance for cutoff [...] Standards of Medical Care in Diabetes 2016, [place] [employer]. Diabetes Care. 2016.39(Suppl 1). Performed By: #### 5 8410-2 #### [facility] CLIA [id number] [place] [address] [place] Potassium [Moles/Vol] 4.1 mmol/L Normal 3.7-5.1 [facility] Comment on above: Order Comment: Speci men Type: BLOOD SPECIMEN Order[facility] Address: [address] [id number] Performed By: #### 5 8410-2 #### [facility] CLIA [id number] [address] [place] [address] [place] Sodium [Moles/Vol] 138 mmol/L Normal 136-144 [facility] Comment on above: Order Comment: Speci men Type: BLOOD SPECIMEN [facility] Address: [address] [place] [address] Performed By: #### 5 8410-2 #### [facility] CLIA [id number] [address] [place] [address] STATES [facility] Urea nitrogen [Mass/Vol] 12 mg/dL Normal 7- [facility] Comment on above: Order Comment: Speci men Type: BLOOD SPECIMEN [facility] Address: [address] [place] [address] Performed By: #### 5 8410-2 #### [facility] CLIA [id number] [address] [place] [address] [place] CBC W Auto Differential pane l (Bld)on 03-29-2022 Basophils (Bld) [#/Vol] 0.04 10*3/uL Normal <0.11 [facility] Comment on above: Order Comment: Speci men Type: BLOOD SPECIMEN Order[facility] Address: [address] [place] [address] Performed By: #### 5 7021-8 #### [facility] CLIA [id number] [address] [place] [address] [place] Basophils/100 WBC (Bld) 0.6 % Normal [facility] Comment on above: Order Comment: Speci men Type: BLOOD SPECIMEN Order[facility] Address: [address] [place] [address] Performed By: #### 5 7021-8 #### [facility] CLIA [id number] [address] [place] [address] [place] Differential cell count method Nom (Bld) Auto Normal [facility] Comment on above: Order Comment: Speci men Type: BLOOD SPECIMEN [facility] Address: [address] [place] [address] Performed By: #### 5 7021-8 #### [facility] CLIA [id number] [address] [place] [address] [place] Eosinophils (Bld) [#/Vol] 0.16 10*3/uL Normal <0.46 [facility] Comment on above: Order Comment: Speci men Type: BLOOD SPECIMEN Order[facility] Address: [address] [place] [address] Performed By: #### 5 7021-8 #### [facility] CLIA [id number] [address] [place] [address] [place] Eosinophils/100 WBC (Bld) 2.3 % Normal [facility] Comment on above: Order Comment: Speci men Type: BLOOD SPECIMEN Order[facility] Address: [address] [place] [address] Performed By: #### 5 7021-8 #### [facility] CLIA [id number] [address] [place] [address] [place] Erythrocyte distribution width (RBC) [Ratio] 12.8 % Normal 11.5-15.0 [facility] Comment on above: Order Comment: Speci men Type: BLOOD SPECIMEN Order[facility] Address: [address] [place] [address] Performed By: #### 5 7021-8 #### [facility] CLIA [id number] [address] [place] [address] [place] Hematocrit (Bld) [Volume fraction] 32.3 % Low 36.0-46.0 [facility] Comment on above: Order Comment: Speci men Type: BLOOD SPECIMEN Order[facility] Address: [address] [place] [address] Performed By: #### 5 7021-8 #### [facility] CLIA [id number] [address] [place] [address] [place] Hemoglobin (Bld) [Mass/Vol] 10.7 g/dL Low 11.5-15.5 [facility] Comment on above: Order Comment: Speci men Type: BLOOD SPECIMEN Order[facility] Address: [address] [place] [address] Performed By: #### 5 7021-8 #### [facility] CLIA [id number] [place] [address] [place] IMMATURE GRAN % 0.3 % Normal [facility] Comment on above: Order Comment: Speci men Type: BLOOD SPECIMEN [facility] Address: [address] [place] [address] Performed By: #### 5 7021-8 #### [facility] CLIA [id number] [address] [place] [address] [place] IMMATURE GRAN ABS <0.03 Normal <0.10 [facility] Comment on above: Order Comment: Speci men Type: BLOOD SPECIMEN [facility] Address: [address] [place] [address] Performed By: #### 5 7021-8 #### [facility] CLIA [id number] [address] [place] [address] [place] Lymphocytes (Bld) [#/Vol] 1.39 10*3/uL Normal 1.00-4.00 [facility] Comment on above: Order Comment: Speci men Type: BLOOD SPECIMEN [facility] Address: [address] [place] [address] Performed By: #### 5 7021-8 #### [facility] CLIA [id number] [address] [place] [address] [place] Lymphocytes/100 WBC (Bld) 19.7 % Normal [facility] Comment on above: Order Comment: Speci men Type: BLOOD SPECIMEN [facility] Address: [address] [place] [address] Performed By: #### 5 7021-8 #### [facility] CLIA [id number] [address] [place] [address] [place] MCH (RBC) [Entitic mass] 29.8 pg Normal 26.0-34.0 [facility] Comment on above: Order Comment: Speci men Type: BLOOD SPECIMEN [facility] Address: [address] [place] [address] Performed By: #### 5 7021-8 #### [facility] CLIA [id number] [place] [address] [place] MCHC (RBC) [Mass/Vol] 33.1 g/dL Normal 30.5-36.0 [facility] Comment on above: Order Comment: Speci men Type: BLOOD SPECIMEN [facility] Address: [address] [place] [address] Performed By: #### 5 7021-8 #### [facility] CLIA [id number] [address] [place] [address] [place] MCV (RBC) [Entitic vol] 90.0 fL Normal 80.0-100.0 [facility] Comment on above: Order Comment: Speci men Type: BLOOD SPECIMEN [facility] Address: [address] [place] [address] Performed By: #### 5 7021-8 #### [facility] CLIA [id number] [address] [place] [address] [place] Monocytes (Bld) [#/Vol] 0.55 10*3/uL Normal <0.87 [facility] Comment on above: Order Comment: Speci men Type: BLOOD SPECIMEN [facility] Address: [address] [place] [address] Performed By: #### 5 7021-8 #### [facility] CLIA [id number] [address] [place] [address] [place] Monocytes/100 WBC (Bld) 7.8 % Normal [facility] Comment on above: Order Comment: Speci men Type: BLOOD SPECIMEN [facility] Address: [address] [place] [address] Performed By: #### 5 7021-8 #### [facility] CLIA [id number] [address] [place] [address] [place] Neutrophils (Bld) [#/Vol] 4.88 10*3/uL Normal 1.45-7.50 [facility] Comment on above: Order Comment: Speci men Type: BLOOD SPECIMEN [facility] Address: [address] [place] [address] Performed By: #### 5 7021-8 #### [facility] CLIA [id number] [address] [place] [address] [place] Neutrophils/100 WBC (Bld) 69.3 % Normal [facility] Comment on above: Order Comment: Speci men Type: BLOOD SPECIMEN [facility] Address: [address] [place] [address] Performed By: #### 5 7021-8 #### [facility] CLIA [id number] [address] [place] [address] [place] Nucleated RBC (Bld) [#/Vol] 10*3/uL Normal <0.01 [facility] Comment on above: Order Comment: Speci men Type: BLOOD SPECIMEN [facility] Address: [address] [place] [address] Performed By: #### 5 7021-8 #### [facility] CLIA [id number] [address] [place] [address] [place] Nucleated RBC/100 WBC (Bld) [Ratio] 0.0 /100 WBC Normal [facility] Comment on above: Order Comment: Speci men Type: BLOOD SPECIMEN [facility] Address: [address] [place] [address] Performed By: #### 5 7021-8 #### [facility] CLIA [id number] [address] [place] [address] [place] Platelet mean volume (Bld) [Entitic vol] 9.0 fL Normal 9.0-12.7 [facility] Comment on above: Order Comment: Speci men Type: BLOOD SPECIMEN [facility] Address: [address] [place] [address] Performed By: #### 5 7021-8 #### [facility] CLIA [id number] [address] [place] [address] [place] Platelets (Bld) [#/Vol] 241 10*3/uL Normal 150-400 [facility] Comment on above: Order Comment: Speci men Type: BLOOD SPECIMEN Order[facility] Address: [address] Performed By: #### 5 7021-8 #### [facility] CLIA [id number] [address] [place] [address] [place] RBC (Bld) [#/Vol] 3.59 10*6/uL Low 3.90-5.20 [facility] Comment on above: Order Comment: Speci men Type: BLOOD SPECIMEN [facility] Address: [address] [place] [address] Performed By: #### 5 7021-8 #### [facility] CLIA [id number] [address] [place] [address] WBC (Bld) [#/Vol] 7.04 10*3/uL Normal 3.70-11.00 [facility] Comment on above: Order Comment: Speci men Type: BLOOD SPECIMEN [facility] Address: [address] [place] [address] Performed By: #### 5 7021-8 #### [facility] CLIA [id number] [address] [place] [address] CONSULT PROGon 03-29-2022 CONSULT PROG HNO ID: [id number] Author: Joslyn Jain APRN.NET WASHER Service: Pain Management Author Type: Nurse Practitioner [...] is on liq diet, currently on Dilaudid DEFENCE INTELLIGENCE ANALYST at 0/0.2/10/6 last 2 hours 06/27 bolus [...] No Relieved: Yes - NOW with increase DEFENCE INTELLIGENCE ANALYST and Repositioning and DEFENCE INTELLIGENCE ANALYST Is patient satisfied with pain control: Yes [...] mL PERIPHERAL NERVE CATHETER CONTINUOUS - HYDROmorphone DEFENCE INTELLIGENCE ANALYST 0.5 mg/mL in NaCl 0.9% 100 mL [...] % 69.3 (more content not included)... Normal [facility] Magnesium SerPl-mCncon 03-29 Magnesium [Mass/Vol] 1.4 mg/dL Low 1.7-2.3 [facility] Comment on above: Order Comment: Speci men Type: BLOOD SPECIMEN [facility] Address: [address] [place] [address] Performed By: #### 5 8410-2 #### [facility] CLIA [id number] [address] [place] [address] NURSING PROGon 03-29-2022 NURSING PROG HNO ID: [id number] Author: Dipti Crowley RN Service: Nursing Author Type: Registered Nurse Type: Nursing Progress Note Filed: 03/29/2022 2:00 PM Note Text: Nursing Progress Note Patient Name: Mary Leal Patient Location: [place] [address] [address] __ Daily Note: Patient VSS. RA POx. Pain level better controlled now that DEFENCE INTELLIGENCE ANALYST initiated. B/L Ropivacaine Tap Blocks with dressings CDI. Magnesium replenished as ordered. 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 Dressing to old ostomy saturated [...] This note was completed by: Dipti Crowley [facility] NURSING PROG HNO ID: [id number] Author: Kev Leone RN Service: ? Author Type: Registered Nurse Type: Nursing Progress Note Filed: 03/29/2022 3:53 AM Note Text: Nursing Progress Note Patient Name: Mary Leal Patient Location: [place] [address]/[address] __ Daily Note: 0350: Pt states she is in 10/10 pain, pt has no PO pain meds ordered, page sent to surgery resident This note was completed by: Kev Leone [facility] PT EDon 03-29-2022 PT ED HNO ID: [id number] Author: Merced Morales DTR Service: Nutrition Therapy Author Type: Drawbench Operator Type: Patient Education Filed: 03/29/2022 11:05 [...] March 29, 2022 TIME: 11:04 AM PAGER: [facility]-ncon 03-29 Phosphate [Mass/Vol] 2.9 mg/dL Normal 2.7-4.8 [facility] Comment on above: Order Comment: Speci men Type: BLOOD SPECIMEN [facility] Address: [address] [place] [address] Performed By: #### 5 8410-2 #### [facility] CLIA [id number] [address] [place] ANES PRE-OPon 03-28-2022 ANES PRE-OP HNO ID: [id number] Author: Anibal Bertrand MD Service: Anesthesiology Author [...] Time BP 114/77 03/28/22 0813 Pulse 80 03/28/22812 Resp Temp 36.1 ?C [...] LUNGS every 4 hours if needed - fluticasone-umeclidin- vilanter (TRELEGY ELLIPTA) 100-62.5-25 mcg Inhale 1 Puff [...] (FLONASE) 50 mcg/actuation nasal spray Use 1 Wiggins in each nostril on (more content not included)... [facility] BRIEF OP NOTon 03-28-2022 BRIEF OP NOT HNO ID: [id number] Author: Nita Lamas MD Service: Colorectal Author Type: Fellow Type: Brief Op Note Filed: 03/28/2022 3:43 PM Note Text: BRIEF OPERATIVE NOTE - COLORECTAL SURGERY Log ID: [id number] Surgery/Procedure Date: 03/28/2022 Incision/Procedure Start Time: 9:47 AM Incision Close/Procedure End Time: 3:40 PM Surgeon(s) and Drilling Superintendent(s): Surgeon(s) and Role: * Mary Obrien MD [...] DATE: March 28, 2022 TIME: 3:42 PM [facility] NURSING PROGon 03-28-2022 NURSING PROG HNO ID: [id number] Author: Merced Lay RN Service: ? Author Type: Registered Nurse Type: Nursing Progress Note Filed: 03/28/2022 6:56 PM Note Text: Nursing Progress Note Patient Name: Mary Leal Patient Location: [place] [address] [address] __ Transfer Note: Patient transferred into room/unit PK3B22 in stable condition. Actions taken: No futher actions taken at this time. Will continue to monitor and check with patient. Paged surgical team. Pt has TAP blocks, but orders were discontinued from PACU. New orders for blocks need to be placed in eMAR. Awaiting call back or orders. This note was completed by: Merced Lay [facility] NURSING PROG HNO ID: [id number] Author: Monica Nicole RN Service: Nursing Author Type: Registered Nurse Type: Nursing Progress Note Filed: 03/28/2022 6:35 PM Note Text: Nursing Progress Note Patient Name: Mary Leal Patient Location: [facility] OR POOL/[facility] OR POOL __ Daily Note: 1750: Dr. Novak notified of patients increase in heart rate from arrival to post op. Patient HR now maintaining in the 120s. 1830: [employer] rounding at patient bedside. Dressing and abdomen assessed- drainage to be expected on island dressing. Notified him of patients HR running high and notified that patient normally takes 50mg atenolol but held today for surgery. Patient's pain managed and other VS stable at this time. [employer] is OK with patient going to regular nursing floor at this time. Family updated. This note was completed by: Monica Nicole [facility] NURSING PROG HNO ID: [id number] Author: Vianney Chacon RN Service: Nursing Author [...] (RECOMMENDATION): None Electronically Signed By: Vianney Chacon [facility] OPERATIVE NOon 03-28-2022 OPERATIVE NO HNO ID: [id number] Author: Mary Obrien MD Service: Colorectal Author Type: Physician Type: Operative Report Filed: 03/28/2022 5:06 PM Note Text: COLON AND RECTAL SURGERY OPERATIVE REPORT PATIENT NAME: Mary Leal ADMISSION DATE: 03/28/2022 LOG ID: [id number] SURGERY/PROCEDURE DATE: 03/28/2022 INCISION/PROCEDURE START TIME: 9:47 AM INCISION CLOSE/PROCEDURE END TIME: 3:40 PM AGE: [age] year old SEX: female SURGEON(S)/PROCEDURALI ST(S) AND GLASS OR MIRROR INSPECTOR(S): Surgeon(s) and Role: * Mary Obrien MD [...] The abdome (more content not included)... Normal [facility] SURGICAL PATHOLOGYon CASE REPORT Normal [facility] Comment on above: Order Comment: Speci men Type: BLOOD SPECIMEN [facility] Address: [address] [place] [address] [place] [address] Result Comment: Surg ical Pathology Report Case: [id number] Authorizing Provider: Mary Obrien MD Collected: 03/28/2022 01:43 PM Ordering Location: [facility] Received: 03/28/2022 04:10 PM Operating Room Pathologist: Areli Rodriguez MD Specimen: COLON RESECTION, terminal ileum with ileostomy Performed By: #### 5 7021-8 #### [facility] CLIA [id number] CLINICAL HISTORY ILEORECTAL ANASTOMOSIS, TAKEDOWN OF ILEOSTOMY Normal [facility] Comment on above: Order Comment: Speci men Type: BLOOD SPECIMEN [facility] Address: [address] [place] [address] Performed By: #### 5 7021-8 #### [facility] CLIA [id number] [address] DIAGNOSIS COMMENT The histologic findings are nonspecific but are compatible with the [...] of associated inflammation or infectious organisms. Normal [facility] Comment on above: Order Comment: Speci men Type: BLOOD SPECIMEN Ordering Facility: [facility] Address: [address] [place] [address] Performed By: #### 5 7021-8 #### [facility] CLIA [id number] FINAL DIAGNOSIS Normal [facility] Comment on above: Order Comment: Speci men Type: BLOOD SPECIMEN Ordering Facility: [facility] Address: [address] [place] [address] Result Comment: [place] n and terminal ileum with ileostomy, resection: - Colon with patchy active colitis, submucosal fibrosis, acute serositis, and fibrovascular adhesions (see comment). - Small bowel with focal transmural defect, acute serositis, fibrovascular adhesions, and changes consistent with ileostomy site. - Benign lymph nodes. JEL 03/31/2022 Performed By: #### 5 7021-8 #### [facility] CLIA [id number] [address] [place] [address] OF [facility] FINAL PERFORMING LAB Normal [facility] Comment on above: Order Comment: Speci men Type: BLOOD SPECIMEN Ordering Facility: [facility] Address: [address] [place] [address] Result Comment: Diag nostic interpretation performed at [facility], [address] [place] [address] CLIA# [id number] Overhead Crane Inspector: Rajiv Anderson M.D. Performed By: #### 5 7021-8 #### [facility] CLIA [id number] [address] [place] [address] GROSS DESCRIPTION Normal [facility] Comment on above: Order Comment: Speci men Type: BLOOD SPECIMEN Ordering Facility: [facility] Address: [address] [place] [address] Result Comment: A. C OLON RESECTION. Received [...] diverticula. The serosa is jaimes-pink and smooth. [employer] sections are submitted from distal to proximal [...] AM Gross examination performed at [facility], [address] [place] [address] CLIA # [id number] Performed By: #### 5 7021-8 #### [facility] CLIA [id number] [address] [place] [address] [place] Q - CBC W/DIFF AND PLTon BASOABS 59 cells/uL Normal 0-200 [facility] Double Spindle Shaper Operator Comment on above: Order Comment: [facility] performed at: [facility], [facility], [address] [place] [address], [address] [place] [address], [id number], Overhead Crane Inspector: Gopal Hamilton MD [facility] Collection Date/Time: [id number] [facility] Results Received Date/Time: [facility] Reported Date/Time: Performed By: #### 9 68T, 39319F, %8293, 92695Z, 6399, 496X #### [facility] Default [address] [place] [address] Basophils/100 WBC (Bld) 1.0 % Normal [facility] Comment on above: Order Comment: [facility] performed at: [place], [address] [facility], [address] [place] [address], [address] [place] [address], Overhead Crane Inspector: Gopal Hamilton MD [facility] Collection Date/Time: [facility] Results Received Date/Time: [facility] Reported Date/Time: Performed By: #### 9 68T, 53970X, %8293, 35995L, 6399, 496X #### [facility] Default [address] [place] [address] EOSABS 171 cells/uL Normal 15-500 [facility] Comment on above: Order Comment: [facility] performed at: [place], [facility], [address] [place] [address], [address] [place] [address], [address] [place] [address], Overhead Crane Inspector: Gopal Hamilton MD [facility] Date/Time: [facility] Results Received Date/Time: [facility] Reported Date/Time: Performed By: #### 9 68T, 22156G, %8293, 08893A, 6399, 496X #### [facility] Default [address] [place] [address] Eosinophils/100 WBC (Bld) 2.9 % Normal [facility] Specialist Comment on above: Order Comment: [facility] performed at: [place], [facility], [address] [place] [address], [address] [place] [address], [address] [place] [address], Overhead Crane Inspector: Gopal Hamilton MD [facility] Date/Time: [facility] Results Received Date/Time: [facility] Reported Date/Time: Performed By: #### 9 68T, 16106K, %8293, 37371R, 6399, 496X #### [facility] [address] [place] [address] Erythrocyte distribution width (RBC) [Ratio] 12.9 % Normal 11.0-15.0 [facility] Double Spindle Shaper Operator Comment on above: Order Comment: [facility] performed at: [facility], [facility], [address] [facility], [address] [place] [address], [address] [place] [address], Overhead Crane Inspector: Gopal Hamilton MD [facility] Date/Time: [facility] Results Received Date/Time: [facility] Reported Date/Time: Performed By: #### 9 68T, 14355I, %8293, 57092T, 6399, 496X #### [facility] [address] [place] [address] Hematocrit (Bld) [Volume fraction] 38.1 % Normal 35.0-45.0 [facility] Double Spindle Shaper Operator Comment on above: Order Comment: [facility] performed at: [place], [facility], [address] [place] [address], [address] [place] [address], [address] [place] [address], Overhead Crane Inspector: Gopal Hamilton MD [facility] Date/Time: [facility] Results Received Date/Time: [facility] Reported Date/Time: Performed By: #### 9 68T, 08230U, %8293, 33913N, 6399, 496X #### [facility] [address] [place] [address] Hemoglobin (Bld) [Mass/Vol] 12.9 g/dL Normal 11.7-15.5 [facility] Double Spindle Shaper Operator Comment on above: Order Comment: [facility] performed at: [place], [facility], [address] [facility], [address] [place] [address], [address] [place] [address], Overhead Crane Inspector: Gopal Hamilton MD [facility] Date/Time: [facility] Results Received Date/Time: [facility] Reported Date/Time: Performed By: #### 9 68T, 90126K, %8293, 39901B, 6399, 496X #### [facility] [address] [place] [address] Lymphocytes (Bld) [#/Vol] 1.375 10*3/uL Normal 850-3900 [facility] Double Spindle Shaper Operator Comment on above: Order Comment: [facility] performed at: [place], [facility], [address] [facility], [address] [place] [address], [address] [place] [address], Overhead Crane Inspector: Gopal Hamilton MD [facility] Date/Time: [facility] Results Received Date/Time: [facility] Reported Date/Time: Performed By: #### 9 68T, 89202I, %8293, 20531C, 6399, 496X #### [facility] [address] [place] [address] Lymphocytes/100 WBC (Bld) 23.3 % Normal [facility] Double Spindle Shaper Operator Comment on above: Order Comment: [facility] performed at: [place], [facility], [address] [place] [address], [address] [place] [address], [address] [place] [address], Overhead Crane Inspector: Gopal Hamilton MD [facility] Date/Time: [facility] Results Received Date/Time: [facility] Reported Date/Time: Performed By: #### 9 68T, 96502S, %8293, 86081M, 6399, 496X #### [facility] Default [address] [place] [address] MCH (RBC) [Entitic mass] 30.0 pg Normal 27.0-33.0 [facility] Double Spindle Shaper Operator Comment on above: Order Comment: [facility] performed at: [facility], [address] [facility], [address] [place] [address], [address] [place] [address], Overhead Crane Inspector: Gopal Hamilton MD [facility] Date/Time: [facility] Results Received Date/Time: [facility] Reported Date/Time: Performed By: #### 9 68T, 63831D, %8293, 81343D, 6399, 496X #### [facility] Default [address] [place] [address] MCHC (RBC) [Mass/Vol] 33.9 g/dL Normal 32.0-36.0 [facility] Comment on above: Order Comment: [facility] performed at: [place], [facility], [address] [place] [address], [address] [place] [address], [address] [place] [address], Overhead Crane Inspector: Gopal Hamilton MD [facility] Date/Time: [facility] Results Received Date/Time: [facility] Reported Date/Time: Performed By: #### 9 68T, 79457V, %8293, 07553Z, 6399, 496X #### [facility] Default [address] [place] [address] MCV (RBC) [Entitic vol] 88.6 fL Normal 80.0-100.0 [facility] Specialist Comment on above: Order Comment: [facility] performed at: [place], [facility], [address] [place] [address], [address] [place] [address], [address] [place] [address], Overhead Crane Inspector: Gopal Hamilton MD [facility] Date/Time: [facility] Results Received Date/Time: [facility] Reported Date/Time: Performed By: #### 9 68T, 60002H, %8293, 34841J, 6399, 496X #### [facility] [address] [place] [address] MONOABS 460 cells/uL Normal 200-950 [facility] Double Spindle Shaper Operator Comment on above: Order Comment: [facility] performed at: [place], [facility], [address] [place] [address], [address] [place] [address], [address] [place] [address], Overhead Crane Inspector: Gopal Hamilton MD [facility] Collection Date/Time: [facility] Results Received Date/Time: [facility] Reported Date/Time: Performed By: #### 9 68T, 95483G, %8293, 58254Z, 6399, 496X #### [facility] Default [address] [place] [address] Monocytes/100 WBC (Bld) 7.8 % Normal [facility] Double Spindle Shaper Operator Comment on above: Order Comment: [facility] performed at: [place], [facility], [address] [facility], [address] [place] [address], [address] [place] [address], Overhead Crane Inspector: Gopal Hamilton MD [facility] Date/Time: [facility] Results Received Date/Time: [facility] Reported Date/Time: Performed By: #### 9 68T, 58681K, %8293, 71207L, 6399, 496X #### [facility] Default [address] [place] [address] Neutrophils (Bld) [#/Vol] 3.835 10*3/uL Normal 7835-5868 [facility] Double Spindle Shaper Operator Comment on above: Order Comment: [facility] performed at: [place], [facility], [address] [facility], [address] [place] [address], [address] [place] [address], Overhead Crane Inspector: Gopal Hamilton MD [facility] Date/Time: [facility] Results Received Date/Time: [facility] Reported Date/Time: Performed By: #### 9 68T, 96848X, %8293, 39772U, 6399, 496X #### [facility] Default [address] [place] [address] Neutrophils/100 WBC (Bld) 65 % Normal [facility] Double Spindle Shaper Operator Comment on above: Order Comment: [facility] performed at: [place], [facility], [address] [place] , [address] [place] [address], [address] [place] [address], Overhead Crane Inspector: Gopal Hamilton MD [facility] Date/Time: [facility] Results Received Date/Time: [facility] Reported Date/Time: Performed By: #### 9 68T, 94129Y, %8293, 43797Q, 6399, 496X #### [facility] Default [address] [place] [address] Platelet mean volume (Bld) [Entitic vol] 9.3 fL Normal 7.5-12.5 [facility] Comment on above: Order Comment: [facility] performed at: [place], [facility], [address] [place] , [address] [place] [address], [address] [place] [address], Overhead Crane Inspector: Gopal Hamilton MD [facility] Collection Date/Time: [facility] Results Received Date/Time: [facility] Reported Date/Time: Performed By: #### 9 68T, 81816Z, %8293, 30349S, 6399, 496X #### [facility] Default [address] [place] [address] Platelets (Bld) [#/Vol] 409 10*3/uL High 140-400 [facility] Comment on above: Order Comment: [facility] performed at: [place], [facility], [address] [place] , [address] [place] [address], [address] [place] [address], Overhead Crane Inspector: Gopal Hamilton MD [facility] Collection Date/Time: [facility] Results Received Date/Time: [facility] Reported Date/Time: Performed By: #### 9 68T, 83617U, %8293, 85136U, 6399, 496X #### [facility] Default [address] [place] [address] RBC (Bld) [#/Vol] 4.30 10*6/uL Normal 3.80-5.10 [facility] Comment on above: Order Comment: [facility] performed at: [place], [facility], [address] [place] , [address] [place] [address], [address] [place] [address], Overhead Crane Inspector: Gopal Hamilton MD [facility] Collection Date/Time: [facility] Results Received Date/Time: [facility] Reported Date/Time: Performed By: #### 9 68T, 25248Z, %8293, 91519W, 6399, 496X #### [facility] Default [address] [place] [address] WBC (Bld) [#/Vol] 5.9 10*3/uL Normal 3.8-10.8 [place] [facility] Double [facility] Sh[employer] Operator Comment on above: Order Comment: [facility] performed at: [place], [facility], [address] [place] [address], [address] [place] [address], [address], Overhead Crane Inspector: Gopal Hamilton MD [facility] Date/Time: [facility] Results Received Date/Time: [facility] Reported Date/Time: Performed By: #### 9 68T, 95205L, %8293, 13625D, 6399, 496X #### [facility] Default [address] [place] [address] Q - COMPREHENSIVE METABOLIC PANEL W/EGFRon 03-10-2022 Albumin [Mass/Vol] 4.3 g/dL Normal 3.6-5.1 [place] [facility] [place] Double Spindle Shaper Operator Comment on above: Order Comment: [facility] performed at: [facility], [address] [place] [address], [address] [place] [address], [address], Overhead Crane Inspector: Gopal Hamilton MD [facility] Date/Time: [facility] Results Received Date/Time: [facility] Reported Date/Time: Performed By: #### 9 68T, 02171K, %8293, 28362X, 6399, 496X #### [facility] Default [address] [place] [address] Albumin/Globulin [Mass ratio] 1.7 {ratio} Normal 1.0-2.5 [facility] Double Spindle Shaper Operator Comment on above: Order Comment: [facility] performed at: [facility], [address] [place] [address], [address] [place] [address], [address] [place] [address], Overhead Crane Inspector: Gopal Hamilton MD [facility] Date/Time: [facility] Results Received Date/Time: [facility] Reported Date/Time: Performed By: #### 9 68T, 11231B, %8293, 64618G, 6399, 496X #### [facility] Default [address] [place] [address] ALP [Catalytic activity/Vol] 134 U/L High 31-125 [facility] Double Spindle Shaper Operator Comment on above: Order Comment: [facility] performed at: [facility], [facility], [address] [place] [address], [address] [place] [address], [address] [place] [address], Overhead Crane Inspector: Gopal Hamilton MD [facility] Collection Date/Time: [facility] Results Received Date/Time: [facility] Reported Date/Time: Performed By: #### 9 68T, 37711Z, %8293, 88744Y, 6399, 496X #### [facility] Default [address] [place] [address] ALT [Catalytic activity/Vol] 41 U/L High 6-29 [facility] Double Spindle Shaper Operator Comment on above: Order Comment: [facility] performed at: [facility], [facility], [address] [place] [address], [address] [place] [address], [address] [place] [address], Overhead Crane Inspector: Gopal Hamilton MD [facility] Collection Date/Time: [facility] Results Received Date/Time: [facility] Reported Date/Time: Performed By: #### 9 68T, 31533G, %8293, 40538H, 6399, 496X #### [facility] Default [address] [place] [address] AST [Catalytic activity/Vol] 33 U/L Normal 10-35 [facility] Double Spindle Shaper Operator Comment on above: Order Comment: [facility] performed at: [facility], [facility], [address] [place] [address], [address] [place] [address], [address] [place] [address], Overhead Crane Inspector: Gopal Hamilton MD [facility] Date/Time: [facility] Results Received Date/Time: [facility] Reported Date/Time: Performed By: #### 9 68T, 23311M, %8293, 80914K, 6399, 496X #### [facility] Default [address] [place] [address] BUN/CREA 17 NOT APPLICABLE Normal 6-22 [facility] Double Spindle Shaper Operator Comment on above: Order Comment: [facility] performed at: [place], [facility], [address] [facility], [address] [place] [address], [address] [place] [address], Overhead Crane Inspector: Gopal Hamilton MD [facility] Date/Time: [facility] Results Received Date/Time: [facility] Reported Date/Time: Performed By: #### 9 68T, 29726L, %8293, 57635Y, 6399, 496X #### [facility] Default [address] [place] [address] Calcium [Mass/Vol] 9.6 mg/dL Normal 8.6-10.2 [facility] Double Spindle Shaper Operator Comment on above: Order Comment: [facility] performed at: [place], [facility], [address] [facility], [address] [place] [address], [address] [place] [address], Overhead Crane Inspector: Gopal Hamilton MD [facility] Collection Date/Time: [facility] Results Received Date/Time: [facility] Reported Date/Time: Performed By: #### 9 68T, 69814N, %8293, 71631S, 6399, 496X #### [facility] Default [address] [place] [address] Chloride [Moles/Vol] 103 mmol/L Normal 98-110 Gen rodriguez [place] Double Spindle Shaper Operator Comment on above: Order Comment: [facility] performed at: [place], [facility], [address] [facility], [address] [place] [address], [address] [place] [address], Overhead Crane Inspector: Gopal Hamilton MD [facility] Date/Time: [facility] Results Received Date/Time: [facility] Reported Date/Time: Performed By: #### 9 68T, 23989A, %8293, 54912R, 6399, 496X #### [facility] Default [address] [place] [address] CO2 [Moles/Vol] 27 mmol/L Normal 20-32 [facility] Comment on above: Order Comment: [facility] performed at: [place], [facility], [address] [place] [address], [address] [place] [address], [address] [place] [address], Overhead Crane Inspector: Gopal Hamilton MD [facility] Date/Time: [facility] Results Received Date/Time: [facility] Reported Date/Time: Performed By: #### 9 68T, 58310B, %8293, 26655Z, 6399, 496X #### [facility] Default [address] [place] [address] Creatinine [Mass/Vol] 0.65 mg/dL Normal 0.50-1.10 [facility] Specialist Comment on above: Order Comment: [facility] performed at: [facility], [address] [place] [address], [address] [place] [address], [address] [place] [address], Overhead Crane Inspector: Gopal Hamilton MD [facility] Date/Time: [facility] Results Received Date/Time: [facility] Reported Date/Time: Performed By: #### 9 68T, 66023Q, %8293, 95343Q, 6399, 496X #### [facility] Default [address] [place] [address] eGFRAA ([facility]) 121 mL/min/1.73m2 Normal > OR = 60 [facility] Double Spindle Shaper Operator Comment on above: Order Comment: [facility] performed at: [place], [facility], [address] [place] [address], [address] [place] [address], [address] [place] [address], Overhead Crane Inspector: Gopal Hamilton MD [facility] Date/Time: [facility] Results Received Date/Time: [facility] Reported Date/Time: Performed By: #### 9 68T, 88869A, %8293, 15272E, 6399, 496X #### [facility] Default [address] [place] [address] eGFRNAA ([facility]) 104 mL/min/1.73m2 Normal > OR = 60 No rthern [facility] Comment on above: Order Comment: [facility] performed at: [facility], [address] [place] [address], [address] [place] [address], Overhead Crane Inspector: Gopal Hamilton MD [facility] Date/Time: [facility] Results Received Date/Time: [facility] Reported Date/Time: Performed By: #### 9 68T, 78873Q, %8293, 90900D, 6399, 496X #### [facility] Default [address] [place] [address] Globulin (S) [Mass/Vol] 2.5 g/dL Normal 1.9-3.7 [facility] Comment on above: Order Comment: [facility] performed at: [facility], [address] [place] [address], [address] [place] [address], [address] [place] [address], Overhead Crane Inspector: Gopal Hamilton MD [facility] Date/Time: [facility] Results Received Date/Time: [facility] Reported Date/Time: Performed By: #### 9 68T, 05878J, %8293, 78699M, 6399, 496X #### [facility] Default [address] [place] [address] Glucose [Mass/Vol] 94 mg/dL Normal 65-99 [facility] Specialist Comment on above: Order Comment: [facility] performed at: [place], [facility], [address] [place] [address], [address] [place] [address], [address] [place] [address], Overhead Crane Inspector: Gopal Hamilton MD [facility] Date/Time: [facility] Results Received Date/Time: [facility] Reported Date/Time: Result Comment: Fasting reference interval Performed By: #### 9 68T, 16949W, %8293, 72513C, 6399, 496X #### [facility] Default [address] [place] [address] Potassium [Moles/Vol] 4.4 mmol/L Normal 3.5-5.3 Venita larson [place] Double Spindle Shaper Operator Comment on above: Order Comment: [facility] performed at: [place], [facility], [address] [place] [address], [address] [place] [address], [address] [place] [address], Overhead Crane Inspector: Gopal Hamilton MD [facility] Date/Time: [facility] Results Received Date/Time: [facility] Reported Date/Time: Performed By: #### 9 68T, 20369A, %8293, 57439A, 6399, 496X #### [facility] Default [address] [place] [address] Protein [Mass/Vol] 6.8 g/dL Normal 6.1-8.1 Jay gambino [place] Double Spindle Shaper Operator Comment on above: Order Comment: [facility] performed at: [place], [facility], [address] [place] [address], [address] [place] [address], [address] [place] [address], Overhead Crane Inspector: Gopal Hamilton MD [facility] Date/Time: [facility] Results Received Date/Time: [facility] Reported Date/Time: Performed By: #### 9 68T, 68103O, %8293, 02803L, 6399, 496X #### [facility] Default [address] [place] [address] Sodium [Moles/Vol] 138 mmol/L Normal 135-146 Jay gambino [place] Double Spindle Shaper Operator Comment on above: Order Comment: [facility] performed at: [place], [facility], [address] [facility], [address] [place] [address], [address] [place] [address], Overhead Crane Inspector: Gopal Hamilton MD [facility] Date/Time: [facility] Results Received Date/Time: [facility] Reported Date/Time: Performed By: #### 9 68T, 22414L, %8293, 07165E, 6399, 496X #### [facility] Default [address] [place] [address] TBIL <0.3 Normal 0.2-1.2 [facility] Double Spindle Shaper Operator Comment on above: Order Comment: [facility] performed at: [place], [facility] [facility], [address] [facility], [address] [place] [address], [address] [place] [address], Overhead Crane Inspector: Gopal Hamilton MD [facility] Collection Date/Time: [facility] Results Received Date/Time: [facility] Reported Date/Time: Performed By: #### 9 68T, 41399E, %8293, 96389W, 6399, 496X #### [facility] Default [address] [place] [address] Urea nitrogen [Mass/Vol] 11 mg/dL Normal 7-25 [place] Double Spindle Shaper Operator Comment on above: Order Comment: [facility] Testing performed at: [place], [address] [facility], [address] [place] [address], [address] [place] [address], Overhead Crane Inspector: Gopal Hamilton MD [facility] Collection Date/Time: [facility] Results Received Date/Time: [facility] Reported Date/Time: Performed By: #### 9 68T, 44828B, %8293, 32024X, 6399, 496X #### [facility] Default [address] [place] [address] Q - DLDL REFLEXon 03-10-2022 Cholesterol in LDL [Mass/Vol] 87 mg/dL Normal <100 [place] Double Spindle Shaper Operator Comment on above: Order Comment: [facility] Testing performed at: [facility], [address], [address] [place] [address], [address] [place] [address], Overhead Crane Inspector: Gopal Hamilton MD [facility] Collection Date/Time: [facility] Results Received Date/Time: [facility] Reported Date/Time: Result Comment: Desirable range <100 mg/dL for primary prevention; <70 mg/dL for patients with CHD or diabetic patients with > or = 2 CHD risk factors. Performed By: #### 9 68T, 10480W, %8293, 15654I, 6399, 496X #### [facility] Default [address] [place] [address] Q - HEMOGLOBIN A1Con 022 HEMOGLOBIN A1c 5.0 % of total Hgb Normal <5.7 No [facility] Comment on above: Order Comment: [facility] Testing performed at: [facility], [address], [address] [place], [address] [place] [address], Overhead Crane Inspector: Gopal Hamilton MD [facility] Collection Date/Time: Quest [...] diagnosis of diabetes in children. According to [place] Diabetes Association (ADA) guidelines, hemoglobin A1c <7.0% represents optimal control in non- diabetic patients. Different metrics may apply to specific patient populations. Standards of Medical Care in Diabetes(ADA). Performed By: #### 9 68T, 22554P, %8293, 25992J, 6399, 496X #### [facility] Default [address] [place] [address] Q - Lipid Panelon 03-10-2022 Cholesterol [Mass/Vol] 230 mg/dL High <200 [place] Double Spindle Shaper Operator Comment on above: Order Comment: [facility] Testing performed at: [place], [address] [place] [address], [address] [place] [address], [address] [place] [address], Overhead Crane Inspector: Gopal Hamilton MD [facility] Collection Date/Time: [facility] Results Received Date/Time: [facility] Reported Date/Time: Performed By: #### 9 68T, 09592B, %8293, 76363O, 6399, 496X #### [facility] Default [address] [place] [address] Cholesterol in HDL [Mass/Vol] 52 mg/dL Normal > OR = 50 [place] Double Spindle Shaper Operator Comment on above: Order Comment: [facility] Testing performed at: [place], [address] [place] [address], [address] [place] [address], [address] [place] [address], Overhead Crane Inspector: Gopal Hamilton MD [facility] Collection Date/Time: [facility] Results Received Date/Time: [facility] Reported Date/Time: Performed By: #### 9 68T, 03610T, %8293, 64656K, 6399, 496X #### [facility] Default [address] [place] [address] Cholesterol.total/Cho lesterol in HDL [Mass ratio] 4.4 {ratio} Normal <5.0 [facility] Double Spindle Shaper Operator Comment on above: Order Comment: [facility] Testing performed at: [place], [address] [place] [address], [address] [place] [address], [address] [place] [address], Overhead Crane Inspector: Gopal Hamilton MD [facility] Collection Date/Time: [facility] Results Received Date/Time: [facility] Reported Date/Time: Performed By: #### 9 68T, 92345P, %8293, 58778N, 6399, 496X #### [facility] Default [address] [place] [address] LDLD SEE NOTE Normal [place] Double Spindle Shaper Operator Comment on above: Order Comment: [facility] Testing performed at: [place], [address] [facility], [address] [place] [address], [address], Overhead Crane Inspector: Gopal Hamilton MD [facility] Collection Date/Time: [facility] [...] LDL-C. Estevan SCHILLING et al. ZANA. 2013;310(19): 7218-3950 (http://education.[employer]/faq/TVK118) Performed By: #### 9 68T, 52854T, %8293, 62089I, 6399, 496X #### [facility] Default [address] [place] [address] NON HDL CHOLESTEROL 178 mg/dL (calc) High <130 [facility] Double Spindle Shaper Operator Comment on above: Order Comment: [facility] Testing performed at: [facility], [address] [place], [address], Overhead Crane Inspector: Gopal Hamilton MD [facility] Collection Date/Time: [facility] Results Received Date/Time: [facility] Reported Date/Time: Result Comment: For patients with diabetes plus 1 major ASCVD risk factor, treating to a non-HDL-C goal of <100 mg/dL (LDL-C of <70 mg/dL) is considered a therapeutic option. Performed By: #### 9 68T, 76780J, %8293, 04996W, 6399, 496X #### [facility] Default [address] [place] [address] Triglyceride [Mass/Vol] 410 mg/dL High <150 [facility] Double Spindle Shaper Operator Comment on above: Order Comment: [facility] Testing performed at: [place], [address] [facility], [address] [place] [address], [address] [place] [address], Overhead Crane Inspector: Gopal Hamilton MD [facility] Collection Date/Time: [facility] Results Received Date/Time: [facility] Reported Date/Time: Result Comment: If a non-fasting specimen was collected, consider repeat triglyceride testing on a fasting specimen if clinically indicated. João et al. J. of Clin. Lipidol. 2015;9:129-169. Performed By: #### 9 68T, 97140M, %8293, 72443H, 6399, 496X #### [facility] Default [address] [place] [address] Q - TROPONIN Ion 03-10-2022 TROPONIN I 3 ng/L Normal < OR = 47 [facility] Double Spindle Shaper Operator Comment on above: Order Comment: [facility] Testing performed at: [facility], [address] [facility], [address] [place] [address], [address] [place] [address], Overhead Crane Inspector: Gopal Hamilton MD [facility] Collection Date/Time: [facility] Results Received Date/Time: [facility] Reported Date/Time: Result Comment: In accord with published recommendations, serial testing of troponin I at intervals of 2 to 4 hours for up to 12 to 24 hours is suggested in order to corroborate a single troponin I result. An elevated troponin alone is not sufficient to make the diagnosis of [place]. Performed By: #### 9 68T, 74942Y, %8293, 46319Q, 6399, 496X #### [facility] Default [address] [place] [address] UA DIP, URINE (POC)on 2021 BILIRUBIN UA (POCT) Negative Negative [facility] CLARITY UA (POCT) Clear [facility] COLOR UA (POCT) Yellow [facility] GLUCOSE UA (POCT) Negative Negative mg/dL [facility] HEMOGLOBIN/BLOOD UA (POCT) Negative Negative [facility] KETONE UA (POCT) Negative Negative mg/dL [facility] LEUKOCYTES UA (POCT) Negative Negative [facility] NITRITE UA (POCT) Negative Negative [facility] PH UA (POCT) 5.0 4.5 - 8.0 [facility] Protein Ql (U) Trace Abnormal Negative mg/dL [facility] SPECIFIC GRAVITY UA (POCT) >=1.030 1.005 - 1.030 [facility] UROBILINOGEN UA (POCT) 0.2 E.U./dL Normal E.U./dL [facility] CNTHERAPYon 01-31-2022 CNTHERAPY OT/PT/Speech Visit (PTLHO) MARY LEAL ([id number]) 1970 F Date Time Provider Department 01/31/22 10:30 AM NEWTON WOODWARD PTSAVANNAH Date Time Provider Department Lynn 01/31/2022 10:30 AM [id number], JILL [facility] Reason for Visit: Physical Therapy [503] Primary [...] (FLONASE) 50 mcg/actuation nasal spray Use 1 Wiggins in each nostril once daily. - carBAMazepine [...] by mouth every morning BEFORE BREAKFAST - fluticasone-umeclidin- vilanter (TRELEGY ELLIPTA) 100-62.5-25 mcg Inhale 1 Puff as instructed once daily. - atenolol (TENORMIN) 50 mg tablet Take 50 mg by mouth once daily. [facility] CNTHERAPYon 01-24-2022 CNTHERAPY OT/PT/Speech Visit (PTLHO) MARY LEAL ([id number]) 1970 F Date Time Provider Department 01/24/22 10:30 AM NEWTON WOODWARD PTKALEIGH Date Time Provider Department Lynn 01/24/2022 10:30 AM [id number], JILL [facility] Reason for Visit: Physical Therapy [503] Primary [...] (FLONASE) 50 mcg/actuation nasal spray Use 1 Wiggins in each nostril once daily. - carBAMazepine [...] by mouth every morning BEFORE BREAKFAST - fluticasone-umeclidin- vilanter (TRELEGY ELLIPTA) 100-62.5-25 mcg Inhale 1 Puff as instructed once daily. - atenolol (TENORMIN) 50 mg tablet Take 50 mg by mouth once daily. [facility] CNTHERAPYon 01-18-2022 CNTHERAPY OT/PT/Speech Visit (PTLHO) MARY LEAL ([id number]) 1970 F Date Time Provider Department 01/18/22 12:15 PM JESSI ISAACS [facility] Date Time Provider Department Lynn 01/18/2022 12:15 PM [id number], KATHRYN [facility] Reason for Visit: PT Eval [747] Primary [...] (FLONASE) 50 mcg/actuation nasal spray Use 1 Wiggins in each nostril once daily. - carBAMazepine [...] by mouth every morning BEFORE BREAKFAST - fluticasone-umeclidin- vilanter (TRELEGY ELLIPTA) 100-62.5-25 mcg Inhale 1 Puff as instructed once daily. - atenolol (TENORMIN) 50 mg tablet Take 50 mg by mouth once daily. Letter Text [facility]27[facility]2021 [facility] ID: [id number] Author: Sonido Owen MD Service: Colorectal Author Type: Resident Type: Discharge Summary Filed: 12/27/2021 3:55 PM Note Text: Attestation signed by Mary Obrien MD at 12/29/2021 4:11 PM [facility] STAFF PHYSICIAN NOTE OF PERSONAL INVOLVEMENT IN [...] the PACU and was transferred to the [facility]. Postoperatively, the patient recovered well. Her diet [...] pain. Qty: 28 tablet Refills: 0 Associated Diagnoses:Postoperativ e pain CONTINUE these medications which have NOT [...] BREAKFAST Qty: 30 capsule Refills: 3 Associated Diagnoses:Gastroesopha geal reflux disease, unspecified whether esophagitis present TRELEGY ELLIPTA 1 Puff Inhale 1 Puff as instructed once daily. prucalopride (MOTEGRITY) 2 mg Take 2 mg by mouth once daily. Qty: 30 tablet Refills: 6 Associated Diagnoses:Chronic idiopathic constipation atenolol (TENORMIN) 50 mg Finesse (more content not included)... Normal [facility] CONSULTon 12-27-2021 CONSULT HNO ID: [id number] Author: Dai Hines RN Service: Wound/Ostomy Author Type: Registered Nurse Type: Consults Filed: 12/27/2021 3:32 PM Note Text: STOMA CARE POST-OPERATIVE ASSESSMENT AND PATIENT EDUCATION Patient Name: Mary Leal Date: December 27, 2021 Time: 3:20 PM ET Care Outcome: Ms. Leal was seen today on the [facility] for ostomy education and a pouch change lesson. ET's Next Scheduled Visit: Complete. STOMA ASSESSMENT Stoma type: Loop ileostomy Diameter: 35 mm with and extra 1 mm cut on the medial side of the pouch. Location: RLQ Protrusion: Budded, Os points downward Mucosal condition and color: Red and [place] and moist. Boni: No Mucocutaneous Junction: Intact [...] one piece cut to fit drainable pouch (#25738) and Coloplast Brava moldable ring (2mm) #[id number]. Brava barrier strips, product # [id number] applied around the border of the pouch. INCISION Degree of approximation: 100% Approximating devices: Surgical Glue Drainage: None Method of Management: POTATO CHIP MAKER Time Increment: 45 minutes Comments: NA Supplies [...] Referral Recommendation: Home Health Agency SIGNATURE: Dai Hines BSN RN COCN CWCN This is an electronically created document. IF PRINTED, PLEASE DO NOT REMOVE FROM THE CHART OR MODIFY PRINTED COPY. [facility] NURSING PROGon 12-27-2021 NURSING PROG HNO ID: [id number] Author: Marizol Hankins RN Service: ? Author Type: Registered Nurse Type: Nursing Progress Note Filed: 12/27/2021 4:39 PM Note Text: Nursing Progress Note Patient Name: Mary Leal Patient Location: [place] [address] [address] __ Daily Note: Pt AANDO x 3. Lap site POTATO CHIP MAKER with glue, no drainage. Pt on GI [...] This note was completed by: Marizol Hankins [facility] NUTRITIONon 12-27-2021 NUTRITION HNO ID: [id number] Author: Merced Morales DTR Service: Nutrition Therapy Author Type: Drawbench Operator Type: Nutrition Filed: 12/27/2021 12:16 PM Note Text: NUTRITION THERAPY COMMUNITY PLACEMENT WORKER NOTE SERVICE DATE: 12/27/2021 SERVICE TIME: 10:00 [...] DATE: December 27, 2021 TIME: 12:15 PM [facility] PT EDon 12-27-2021 PT ED HNO ID: [id number] Author: Merced Morales DTR Service: Nutrition Therapy Author Type: Drawbench Operator Type: Patient Education Filed: 12/27/2021 12:16 [...] 27, 2021 TIME: 12:16 PM PAGER: Normal [facility] Basic Metabolic Panlon 12-26 Anion gap [Moles/Vol] 9 mmol/L Normal 9-18 [facility] Comment on above: Performed By: #### B MP #### [place] [phone] Calcium [Mass/Vol] 8.5 mg/dL Normal 8.5-10.5 [facility] Comment on above: Performed By: #### B MP #### [place] [phone] Chloride [Moles/Vol] 102 mmol/L Normal 98-110 [facility] Comment on above: Performed By: #### B MP #### [place] [phone] CO2 [Moles/Vol] 28 mmol/L Normal 23-32 [facility] Comment on above: Performed By: #### B MP #### [place] [phone] Creatinine [Mass/Vol] 0.62 mg/dL Low 0.70-1.40 [facility] Comment on above: Performed By: #### B MP #### [place] [phone] eGFR- Amer. >60 Normal >59 [facility] Comment on above: Performed By: #### B MP #### [place] [id number] eGFR-All Other Races >60 Normal >59 [facility] Comment on above: Result Comment: eGFR (Estimated [...] [email or web address]. Performed By: #### B MP #### [place] [address] Glucose [Mass/Vol] 71 mg/dL Normal 65-100 [facility] Comment on above: Performed By: #### B MP #### [place] [address] Potassium [Moles/Vol] 4.0 mmol/L Normal 3.5-5.0 [facility] Comment on above: Performed By: #### B MP #### [place] [address] Sodium [Moles/Vol] 139 mmol/L Normal 132-148 [facility] Comment on above: Performed By: #### B MP #### [place] [address] Urea nitrogen [Mass/Vol] 10 mg/dL Normal 8-25 [facility] Comment on above: Performed By: #### B MP #### [place] [address] NURSING PROGon 12-26-2021 NURSING PROG HNO ID: [id number] Author: Dipti Crowley RN Service: Nursing Author Type: Registered Nurse Type: Nursing Progress Note Filed: 12/26/2021 5:25 PM Note Text: Nursing Progress Note Patient Name: Mary Leal [id number] __ Daily Note: Call discontinued as directed in orders. 700cc output from call. 250cc NS instilled and then call catheter removed. Patient assisted to BSC and voided 200cc pink tinged urine. Patient assisted back to bed, not wanting to go to chair. Call light in reach. This note was completed by: Dipti Crowley [facility] NURSING PROG HNO ID: [id number] Author: Dipti Crowley, RN Service: Nursing Author Type: Registered Nurse Type: Nursing Progress Note Filed: 12/26/2021 3:51 PM Note Text: Nursing Progress Note Patient Name: Mary Leal Patient Location: -PK3C33/[id number]-[id number]-14 __ Daily Note: Patient AANDOx3. VSS. 2L NC POx. IVF infusing as ordered. Dilaudid DEFENCE INTELLIGENCE ANALYST, OXY IR on for pain. Patient drowsy yet easily arousable. Lap sites and transverse incision ELENI with glue. Ileostomy draining liquid brown. Call draining clear yellow. PAS on. No edema. Fa,saman at bed side. Call light in reach. This note was completed by: Dipti Crowley [facility] Basic Metabolic Panlon 12-25 Anion gap [Moles/Vol] 9 mmol/L Normal -18 [facility] Comment on above: Performed By: #### B MP #### [facility] [address] [place] [address] Calcium [Mass/Vol] 8.5 mg/dL Normal 8.5-10.5 [facility] Comment on above: Performed By: #### B MP #### [place] [phone] Chloride [Moles/Vol] 104 mmol/L Normal 98-110 [facility] Comment on above: Performed By: #### B MP #### [place] [phone] CO2 [Moles/Vol] 28 mmol/L Normal 23-32 [facility] Comment on above: Performed By: #### B MP #### [place] [phone] Creatinine [Mass/Vol] 0.72 mg/dL Normal 0.70-1.40 [facility] Comment on above: Performed By: #### B MP #### [place] [phone] eGFR- Amer. >60 Normal >59 [facility] Comment on above: Performed By: #### B MP #### [place] [phone] eGFR-All Other Races >60 Normal >59 [facility] Comment on above: Result Comment: eGFR (Estimated [...] [email or web address]. Performed By: #### B MP #### [place] [address] Glucose [Mass/Vol] 91 mg/dL Normal 65-100 [facility] Comment on above: Performed By: #### B MP #### [place] [address] Potassium [Moles/Vol] 4.0 mmol/L Normal 3.5-5.0 [facility] Comment on above: Performed By: #### B MP #### [place] [address] Sodium [Moles/Vol] 141 mmol/L Normal 132-148 [facility] Comment on above: Performed By: #### B MP #### [place] [address] Urea nitrogen [Mass/Vol] 12 mg/dL Normal 8-25 [facility] Comment on above: Performed By: #### B MP #### [place] [address] CASE MGT INIT ASSESon 2021 CASE MGT INIT ASSES HNO ID: [id number] Author: TITO Whitt Service: ? 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 Last discharge within 30 days: No Advance Directive: Current Advance Directive: Health Care Power of Painter Plate In Chart: No Health LiteracyHow often do [...] None Has the Patient Been in a Fpc Facility in the Past 30 days?: No [...] Completely I feel financially burdened by my lfd-gw-ekwkej expenses for my prescription medication:: 0 - Disagree Completely Risk Score: 0 Patient is categorized as: Low risk < 2 Are you interested in bedside delivery of your medications? Yes Is Patient Psychosocially Complex?: No ASSESSMENT AND PLAN: Medical Needs: Medical Needs: None Psychosocial Needs: Psychosocial Needs: None FREEDOM OF CHOICE EXPLAINED: Reserve of Choice Given: Yes Level of Care Discussed: Home Care Financial Disclosure Provided: Yes Financial Disclosure Comments: careport Provider List: Home Care Provider list within the patient's requested geographic area shared with the patient/family: Yes within: [place] miles of [facility] code: 31781 Quality and resource use metrics shared with [...] bedside with pt during assessment. Charo Obando [phone]. Home care referrals sent. Daughter to transport at time of discharge. SIGNATURE: TITO Whitt PATIENT NAME: Mary Leal DATE: December 25, 2021 TIME: 11:39 AM PAGER/CONTACT #: [phone] Normal [facility] CBC and Differentialon 12-25 Abs Baso 0.03 k/uL Normal <0.11 [facility] Comment on above: Performed By: #### 5 7021-8 #### [facility] CLIA [id number] [address] [place] [address] [place] Abs Lamoure 0.45 k/uL Normal <0.87 [facility] Comment on above: Performed By: #### 5 7021-8 #### [facility] CLIA [id number] [address] [place] [address] [place] Abs Neut 3.85 k/uL Normal 1.45-7.50 [facility] Comment on above: Performed By: #### 5 7021-8 #### [facility] CLIA [id number] [address] [place] [address] [place] Absolute nRBC <0.01 Normal <0.01 [facility] Comment on above: Performed By: #### 5 7021-8 #### [facility] CLIA [id number] [address] [place] [address] [place] Basophils/100 WBC (Bld) 0.5 % Normal [facility] Comment on above: Performed By: #### 5 7021-8 #### [facility] CLIA [id number] [address] [place] [address] [place] DTYPE Auto Diff Normal [facility] Comment on above: Performed By: #### 5 7021-8 #### [facility] CLIA [id number] [address] [place] [address] [place] Eosinophils (Bld) [#/Vol] 0.14 10*3/uL Normal <0.46 [facility] Comment on above: Performed By: #### 5 7021-8 #### [facility] CLIA [id number] [address] [place] [address] [place] Eosinophils/100 WBC (Bld) 2.3 % Normal [facility] Comment on above: Performed By: #### 5 7021-8 #### [facility] CLIA [id number] [address] [place] [address] [place] Erythrocyte distribution width (RBC) [Ratio] 11.6 % Normal 11.5-15.0 [facility] Comment on above: Performed By: #### 5 7021-8 #### [facility] CLIA [id number] [address] [place] [address] [place] Hematocrit (Bld) [Volume fraction] 35.2 % Low 36.0-46.0 [facility] Comment on above: Performed By: #### 5 7021-8 #### [facility] CLIA [id number] [address] [place] [address] [place] Hemoglobin (Bld) [Mass/Vol] 11.6 g/dL Normal 11.5-15.5 [facility] Comment on above: Performed By: #### 5 7021-8 #### [facility] CLIA [id number] [address] [place] [address] [place] Lymphocytes (Bld) [#/Vol] 1.47 10*3/uL Normal 1.00-4.00 [facility] Comment on above: Performed By: #### 5 7021-8 #### [facility] CLIA [id number] [address] [place] [address] [place] Lymphocytes/100 WBC (Bld) 24.7 % Normal [facility] Comment on above: Performed By: #### 5 7021-8 #### [facility] CLIA [id number] [address] [place] [address] [place] MCH 29.5 pG Normal 26.0-34.0 [facility] Comment on above: Performed By: #### 5 7021-8 #### [facility] CLIA [id number] [address] [place] [address] [place] MCHC (RBC) [Mass/Vol] 33.0 g/dL Normal 30.5-36.0 [facility] Comment on above: Performed By: #### 5 7021-8 #### [facility] CLIA [id number] [place] [address] [place] MCV (RBC) [Entitic vol] 89.6 fL Normal 80.0-100.0 [facility] Comment on above: Performed By: #### 5 7021-8 #### [facility] CLIA [id number] [address] [place] [address] [place] Monocytes/100 WBC (Bld) 7.6 % Normal [facility] [facility] Comment on above: Performed By: #### 5 7021-8 #### [facility] CLIA [id number] [address] [place] [address] [place] Neutrophils/100 WBC (Bld) 64.9 % Normal [facility] Comment on above: Performed By: #### 5 7021-8 #### [facility] CLIA [id number] [address] [place] [address] [place] NRBCs 0.0 /100 WBC Normal 0 [facility] Comment on above: Performed By: #### 5 7021-8 #### [facility] CLIA [id number] [address] [place] [address] [place] Platelet mean volume (Bld) [Entitic vol] 9.0 fL Normal 9.0-12.7 [facility] Comment on above: Performed By: #### 5 7021-8 #### [facility] CLIA [id number] [address] [place] [address] [place] Platelets (Bld) [#/Vol] 271 10*3/uL Normal 150-400 [facility] Comment on above: Performed By: #### 5 7021-8 #### [facility] CLIA [id number] [address] [place] [address] [place] RBC (Bld) [#/Vol] 3.93 10*6/uL Normal 3.90-5.20 [facility] Comment on above: Performed By: #### 5 7021-8 #### [facility] CLIA [id number] [address] [place] WBC (Bld) [#/Vol] 5.96 10*3/uL Normal 3.70-11.00 [facility] Comment on above: Performed By: #### 5 7021-8 #### [facility] CLIA [id number] CONSULTon 12-25-2021 CONSULT HNO ID: [id number] Author: Tri Kowalski APRN.NET WASHER Service: Wound/Ostomy Author Type: Nurse Practitioner Type: Consults Filed: 12/25/2021 11:37 AM Note Text: OSTOMY SERVICE CONSULT DIESEL SERVICE APPRENTICE SERVICE DATE: 12/25/2021 SERVICE TIME: 1015 Consultation [...] mL 20 mEq INTRAVENOUS PRN - HYDROmorphone DEFENCE INTELLIGENCE ANALYST 0.5 mg/mL in NaCl 0.9% 100 mL [...] visible at this time Supportive Tissue: Semisoft Impression/Recommendat ions OSTOMY CARE EDUCATION: Today's Teaching Consisted of: [...] with h (more content not included)... Normal [facility] NURSING PROGon 12-25-2021 NURSING PROG HNO ID: [id number] Author: Marilyn Henning, MAKI Service: ? Author Type: Registered Nurse Type: Nursing Progress Note Filed: 12/25/2021 7:01 PM Note Text: Nursing Progress Note Patient Name: Mary Leal Patient Location: [address] __ Daily Note: 0930 Pt AANDOx3. Lap sites intact. ABD tender. DEFENCE INTELLIGENCE ANALYST pump running. Stoma beefy red, dark brown liquid output. Pt stated that the eye pressure felt overnite has resolved. Call remains in place until OBGYN sees pt 12/26. Pt requesting PO pain medication. 1100 Pt up to chair. [address] Ontiveros bedside. 5mg oxy ordered q4 PRN. This note was completed by: Marilyn Henning [facility] NURSING PROG HNO ID: [id number] Author: Beto Ford RN Service: ? Author Type: Registered Nurse Type: Nursing Progress Note Filed: 12/25/2021 6:12 AM Note Text: Nursing Progress Note Patient Name: Mary Leal Patient Location: [place] [address] [address] __ Daily Note: Pt has been complaining of [...] This note was completed by: Beto Ford [facility] ANES POSTPROC EVALon 022 ANES POSTPROC EVAL HNO ID: [id number] Author: Charisse Aggarwal MD Service: Anesthesiology Author [...] December 24, 2021 TIME: 4:17 PM CSN: [id number] [facility] ANES PRE-OPon 12-24-2021 ANES PRE-OP HNO ID: [id number] Author: Chayito Ojeda MD Service: Anesthesiology Author [...] 11pm the evening prior to surgery. - fluticasone-umeclidin- vilanter (TRELEGY ELLIPTA) 100-62.5-25 mcg Inhale 1 Puff [...] December 24, 2021 TIME: 7:27 AM CSN: [id number] [facility] BRIEF OP NOTon 12-24-2021 BRIEF OP NOT HNO ID: [id number] Author: Jenifer Ayala MD Service: Colorectal Author Type: Fellow Type: Brief Op Note Filed: 12/24/2021 12:16 PM Note Text: BRIEF OPERATIVE NOTE - COLORECTAL SURGERY Log ID: [id number] Surgery/Procedure Date: 12/24/2021 Incision/Procedure Start Time: 8:50 AM Incision Close/Procedure End Time: Surgeon(s) and Drilling Superintendent(s): Surgeon(s) and Role: Panel 1: * Mary [...] DATE: December 24, 2021 TIME: 12:10 PM [facility] NURSING PROGon 12-24-2021 NURSING PROG HNO ID: [id number] Author: Marilyn Henning RN Service: ? Author Type: Registered Nurse Type: Nursing Progress Note Filed: 12/24/2021 6:36 PM Note Text: Nursing Progress Note Patient Name: Mary Leal Patient Location: [place] [address] __ Daily Note: 1816 Pt arrived on floor with 100.2F temperature. Scheduled tylenol administered. Temperature 98.6 at 1816. Surgical incisions POTATO CHIP MAKER with glue, intact. Ostomy beefy red, producing sweat. Call remains in place. Pt Educated on DEFENCE INTELLIGENCE ANALYST pump usage. Daughter bedside. Bed low and locked. This note was completed by: Marilyn Henning [facility] NURSING PROG HNO ID: [id number] Author: Marilyn Henning RN Service: ? Author Type: Registered Nurse Type: Nursing Progress Note Filed: 12/24/2021 4:19 PM Note Text: Nursing Progress Note Patient Name: Mary Leal Patient Location: [place] [address]/[address] __ Transfer Note: Patient transferred into room/unit PK3-33 in stable condition. Actions taken: No futher actions taken at this time. Will continue to monitor and check with patient. This note was completed by: Marilyn Henning [facility] NURSING PROG HNO ID: [id number] Author: Dianelys Lopez RN Service: Nursing Author [...] (RECOMMENDATION): None Electronically Signed By: Dianelys Lopez [facility] OPERATIVE NOon 12-24-2021 OPERATIVE NO HNO ID: [id number] Author: Mary Obrien MD Service: Colorectal Author Type: Physician Type: Operative Report Filed: 12/24/2021 12:34 PM Note Text: COLON AND RECTAL SURGERY OPERATIVE REPORT PATIENT NAME: Mary Leal ADMISSION DATE: 12/24/2021 LOG ID: [id number] SURGERY/PROCEDURE DATE: 12/24/2021 INCISION/PROCEDURE START TIME: 8:50 AM INCISION CLOSE/PROCEDURE END TIME: AGE: [age] year old SEX: female SURGEON(S)/PROCEDURALI ST(S) AND GLASS OR MIRROR INSPECTOR(S): Surgeon(s) and Role: Panel 1: * Mary [...] port site. This was ligated with a edrfcx-gj-vapog Vicryl suture and was confirmed to be [...] COMPLICATIONS: None INTRAOPERATIVE FLUIDS: See anesthesia record. SPONGE/INSTRUMENT/NEED LE COUNTS: Correct x2. PRESENCE STATEMENT: I was present for the entire procedure as I have dictated above. Mary Obrien, (more content not included)... Normal [facility] OPERATIVE NO HNO ID: [id number] Author: Pam Wang MD Service: Urogynecology Author Type: Physician Type: Operative Report Filed: 12/28/2021 10:03 AM Note Text: OPERATIVE/PROCEDURE REPORT LOG ID: [id number] SURGERY/PROCEDURE DATE: 12/24/2021 INCISION/PROCEDURE START TIME: 8:50 AM INCISION CLOSE/PROCEDURE END TIME: 1:50 PM SURGEON(S)/PROCEDURALI ST(S) AND GLASS OR MIRROR INSPECTOR(S): Surgeon(s) and Role: Panel 1: * Mary [...] of the (more content not included)... Normal [facility] Type and SCR (30D)on 022 ABO/RH(D) Positive [facility] Comment on above: Performed By: #### T SCR30 ####[facility] [place], [place] [phone] Confirm Blood Typeon 021 ABO/RH(D) Positive Normal [facility] Comment on above: Performed By: #### C ONABO ####[facility] [place], [place] [phone] Type and SCR (30D)on ABO/RH(D) Positive [facility] Comment on above: Performed By: #### T SCR30 ####[facility] [place], [place] [phone] Nonvisit Note - PTon Nonvisit Note - PT Chart reviewed with eval prepped for scheduled eval. [facility] Consenton 01-08-2021 Consent [id number]#1. 00CD:127 [facility] Coding Summary.on 01-06-2021 Coding Summary. CODING DATE: 01/06/2021 FINAL [facility] STATUS: Home (Routine DC) PAYOR: Medicaid [...] Eileen Scott Date Saved: 01/06/2021 09:01 am [facility] Consent for Procedure/Surger yon 01-04-2021 Consent for Procedure/Surgery [id number]#1. 00CD:127 [facility] Consent for Procedure/Surgery [id number]#1. 00CD:127 [facility] Consent for Treatmenton Consent for Treatment [id number]#1.0 0CD:127 Normal [facility] Discharge Instructionson Discharge Instructions [id number]#1. 00CD:127 Normal [facility] Inpatient Patient Summaryon 01-04-2021 Inpatient Patient Summary [address] [address] Clinical Summary Person Information Name: MARY LEAL Age: 50 Years : 1970 Sex: Female PCP: Isatu GÓMEZ DO Marital Status: Race: White Ethnicity: Non- or Language: Mauritian Visit Id: Visit Reason: MIXED INCONTINENCE Speciality: Acuity: Enc Type: Outpatient Med Service: Surgery Arrival: 01/04/2021 12:31:00 Discharge: Dispo Type: Address: [address] [place] [phone] Provider Notes: Diagnosis: Problems Active Decreased bladder [...] Immunizations Documented This Visit Final Med List: acetaminophen-hydrocod one (Godwin 5/325 Tab) By Mouth every 6 hours. [...] up: With: Address: When: Clifford OCONNOR [address], [address], [employer] [place] [phone] [facility] (1) Within 2 weeks Comments: Call for followup appointment. Have a great day! Patient Education Information: EU - Cystoscopy with Botox Injection Discharge Instructions (Custom) Normal [facility] IntraOperative Documentson 0 01-04-2021 IntraOperative Documents [id number]#1. 00CD:127 Normal [facility] IntraOperative Documents [id number]#1. 00CD:127 [facility] Main OR Intraoperative Recor don 01-04-2021 Main OR Intraoperative Record IntraOp Document Type FTURO Summary Primary Physician: Clifford OCONNOR MD Finalized Date/Time: 01/04/21 13:27:05 Pt. Name: MARY LEAL/Sex: 1970 Female Med Rec #: [id number] Physician: Clifford OCONNOR MD Financial #: [id number] Pt. Type: O Room/Bed: / Admit/Disch: 01/04/21 12:31:00 - Institution: Case Times FTURO Entry 1 Patient Times In Room 01/04/21 13:07:00 Out Room 01/04/21 13:27:00 Procedure Times Start 01/04/21 13:19:00 Stop 01/04/21 13:23:00 Anesthesia Times Last Modified By: Niecy Tran RN 01/04/21 13:27:01 Case Attendance FTURO Entry 1 Entry 2 Entry 3 Case Attendee ANASTASIA BENSON, Clifford Dalton SEWING MACHINE ADJUSTER, Akin Mejias SEWING MACHINE ADJUSTER, Debi Chand Role Performed Surgeon - Primary [...] Case Attendee Niecy Tran RN Role Performed Graphic Design Intern - Primary Time In 01/04/21 13:07:00 Time Out 01/04/21 13:27:00 Procedure CYSTOSCOPY LOCAL BOTOX INJECTION(.) Comments Last Modified By: Niecy Tran RN 01/04/21 13:27:02 Surgical Procedures FTURO Entry 1 Procedure Description Procedure CYSTOSCOPY LOCAL BOTOX Modifiers . INJECTION Surgeon Description CYSTOSCOPY BOTOX 50 UNITS LOT NUMBER [id number] EXP DATE 08/2023 Primary Procedure Yes Primary [...] MD, Verified (If Participants Sha PECK, Akin Jacinto, Applicable) Randell PECK, Chelsea Sarkar RN, Kimberly [...] By: Niecy Tran RN 01/04/21 13:27 Normal [facility] Main OR Preoperative Recordo n 01-04-2021 Main OR Preoperative Record Holding Area Document Type FTURO Summary Primary Physician: Clifford OCONNOR MD Finalized Date/Time: 01/04/21 13:05:55 Pt. Name: MARY LEAL/Sex: 1970 Female Med Rec #: [id number] Physician: Clifford OCONNOR MD Financial #: [id number] Pt. Type: O Room/Bed: / Admit/Disch: 01/04/21 [...] 12:46 Niecy Tran RN 01/04/21 13:05 Normal [facility] Operative Reporton Operative Report Patient: MARY LEAL Age: 50 years Sex: Female : 1970 Associated Diagnoses: None Author: Clifford OCONNOR MD Procedure Operative Information Details: Date/ Time: 01/04/2021 13:26:00, Indications/preoperati ve discussion with patient: Overall I extensively discussed [...] even with medication management. Discussed that the administration/instill ation of Botox can also result in urinary [...] with botox injection, (50 units). Complications: None. Risks/Benefits/Informe d Consent: Surgical risks, benefits, details of the [...] arranged, F/U in two weeks. . Normal [facility] Comment on above: Result Comment: Elec tronically Signed By: ANASTASIA BENSON, Clifford Levy.valerie\Date and Time Signed: 01/04/21 13:30 EST Outpatient Surgery Discharge Instructionon 01-04-2021 Outpatient Surgery Discharge Instruction [place] [id number] Patient Discharge Instructions PERSON INFORMATION Name: MARY LEAL Zoya Date of : 1970 Current Date: 01/04/2021 13:25:41 PHYSICIANS Admitting Physician: Clifford OCONNOR MD Comment: Discharge Diagnosis: MARY LEAL has been given the following list of follow-up instructions, prescriptions, and patient education materials: IF UNABLE TO CONTACT YOUR PHYSICIAN AND YOU FEEL IT IS AN EMERGENCY, GO TO THE NEAREST EMERGENCY ROOM OR CALL 911 Follow up: With: Address: When: Clifford OCONNOR [address], [address], [place] [phone] [facility] (1[facility] Within 2 weeks Comments: Call for followup [...] were given Patient Signature Date Clinican/Nurse Signature ___ Date You may receive a survey from Leyla Scott asking you to rate your care experience. Your feedback is important and will help us understand what we do well and how we can improve the quality of care we provide to you, your loved ones and our community. It?s an honor to serve you. Thank you for choosing [facility] Normal [facility] PT - Assessmentson 1 PT - Assessments [id number]#1. 00CD:127 Normal [facility] Ambulatory Clinical Summaryo n 11-11-2020 Ambulatory Clinical Summary {[id number]-72-93-b3-c 9-f1}CD:[id number] Normal [facility] Patient Educationon 11-11-19 21 Patient Education [...] not included)... Normal [facility] Urology Phone Visit- Telehealth HPI Staff [...] communication with the patient located at [facility] [phone] , with no one else. If it [...] Contact Information Francie BENSON, Dawna Feldman [address] [place] [address]- [phone] Additional Instructions: Patient Education Urodynamic Testing Overactive [...] stream His (more content not included)... Normal [facility] Comment on above: Result Comment: Elec tronically Signed By: Francie BENSON, Dawna Feldman\.br\Date and Time Signed: 11/03/20 11:59 EST\.br\Electronically Co-Signed By: Christy Gill MA\.br\Date and Time Co-Signed: 10/21/20 12:01 EST Coding Summary.on 10-28-2020 Coding Summary. CODING DATE: 10/28/2020 FINAL [facility] STATUS: Home (Routine DC) PAYOR: Medicaid EA [...] Eileen Scott Date Saved: 10/28/2020 11:17 am [facility] Ambulatory Clinical Summaryo n 10-27-2020 Ambulatory Clinical Summary {[id number] m6-ke-g8-t3-92-94-26-c 6-e5}CD:[id number] [facility] Consent for Procedure/Surger yon 10-27-2020 Consent for Procedure/Surgery [id number]#1 .00CD:127 Normal [facility] Consent for Treatmenton 10-07 Consent for Treatment [id number]#1.0 0CD:127 Normal [facility] IntraOperative Documentson 1 12-28-2019 IntraOperative Documents [id number]#1 .00CD:127 Normal [facility] Patient Educationon 10-21-20 Patient Education Family [...] lab or depar (more content not included)... [facility] PT - Assessmentson 0 PT - Assessments [id number]#1. 00CD:127 [facility] Nonvisit Note - PTon 020 Nonvisit Note - PT Per voicemail: she needs to cancel all of her PT due to personal reasons. [facility] Provider Letteron 09-09-2020 Provider Letter September 09, 2020 MARY LEAL [address] [place] [address] MARY LEAL 1970 Dear Mary Leal, You [...] appreciate your understanding. Sincerely, [facility] [address] [facility], [place] [address] [facility] PT - Assessmentson 0 PT - Assessments [id number]#1. 00CD:127 [facility] PT - Assessments [id number]#1. 00CD:127 [facility] PT - Assessmentson 0 PT - Assessments [id number]#1. 00CD:127 [facility] PT - Consentson 08-31-2020 PT - Consents [id number]#1. 00CD:127 [facility] Pre-Certification Formon Pre-Certification Form [id number]#1.0 0CD:127 [facility] Pre-Certification Form [id number]#1.0 0CD:127 [facility] Consent for Procedure/Surger yon 08-26-2020 Consent for Procedure/Surgery [id number]#1.0 0CD:127 [facility] Ambulatory Clinical Summaryo n 08-25-2020 Ambulatory Clinical Summary {[id number]-8l-88-19-r8-40- 5d-13-qr-4q-13-56-e1-7 d-}CD:[id number] [facility] Patient Educationon 08-25-20 Patient Education Family [...] an extended amount of time. Only take ggtv-hhr-nikpkxd or prescription medicines for pain, discomfort, or [...] Document Reviewed: 09/07/2009 ExitCare? Patient Information ?2013 Staff Ranker. Normal [facility] Urology Office/Clinic Noteon 08-25-2020 Urology Office/Clinic [...] disease: Mother. Hypertension: Mother and Father. Normal [facility] Comment on above: Result Comment: Elec tronically Signed By: Dawna Marmolejo MD\.br\Date and Time Signed: 08/25/20 10:06 EDT\.br\Electronically Co-Signed By: Mary Hager.br\Date and Time Co-Signed: 08/25/20 09:51 EDT Coding Summary.on 08-21-2020 Coding Summary. CODING DATE: 08/21/2020 FINAL [facility] STATUS: PAYOR: Medicaid [facility] DESCRIPTION 0271 PHYSICAL THERAPY ADMIT [...] Raymond CphT Date Saved: 08/21/2020 10:42 am [facility] Consenton 08-21-2020 Consent [id number]#1.0 0CD:127 [facility] Ambulatory Clinical Summaryo n 08-19-2020 Ambulatory Clinical Summary {[id number]-47- 12-15-52-96-2v-d8-d1-c }CD:[id number] [facility] Ambulatory Clinical Summary {[id number]-[id number]-6m-1w-4f- 51-y7-01-87-13-66-b0-0 d-3c}CD:064267 [facility] Nonvisit Note - PTon 020 Nonvisit Note - PT Chart reviewed for scheduled eval. [facility] Patient Educationon 08-19-20 20 Patient Education [...] your urinary (more content not included)... Normal [facility] 08-19-2020 Urology Phone Visit- Telehealth Chief Complaint [...] only communication with the patient located at [address] [place], [place] [phone], with no one else. If it is [...] questions/concerns were discussed. Pt. acknowledges understanding. Ordered: [facility] External Ambulatory Referral Urology Procedure Order 2. Dysuria (R30.0: Dysuria) Moderate. Ordered: [facility] External Ambulatory Referral Urology Procedure Order 3. Feeling of incomplete bladder emptying (R39.14: Feeling of incomplete bladder emptying) Pt. does not feel that she is emptying. Ordered: [facility] External Ambulatory Referral Urology Procedure Order 4. Weak urine stream (R39.12: Poor urinary stream) Weak stream w/ moderate hesitancy. Ordered: [facility] External Ambulatory Referral Urology Procedure [...] Will order Local anesthesia. ABX sent to [facility] in [place]. Ordered: [facility] External Ambulatory Referral Urology Procedure [...] Patient who (more content not included)... Normal [facility] Comment on above: Result Comment: Elec tronically Signed By: Dawna Marmolejo MD\.br\Date and Time Signed: 08/19/20 08:53 EDT\.br\Electronically Co-Signed By: Christy Gill MA\.br\Date and Time Co-Signed: 08/19/20 08:44 EDT Coding Summary.on 08-12-2020 Coding Summary. CODING DATE: 08/12/2020 FINAL [facility] STATUS: Home (Routine DC) PAYOR: Medicaid [...] Demi Fried Date Saved: 08/12/2020 09:42 am [facility]son 08-11-2020 Forms [id number]#1.0 0CD:127 [facility] C Urineon 08-09-2020 Bacteria identified Cx [...] Locations R1: This test was performed at: [facility], [address] [place] [address], [facility] , , [facility] Comment on above: Performed By: #### 2 [id number] ####[facility] [address] [place] [address] Ambulatory Clinical Summaryo n 08-07-2020 Ambulatory Clinical Summary {1l-g7-38-hi-27-56-4a- 55-18-ym-43-52-2d-ba-8 4-a2}CD:[id number] [facility] Patient Educationon 08-07-20 20 Patient Education [...] Document Reviewed: 07/18/2013 ExitCare? Patient Information ?2013 [employer] Family Medicine Overactive Bladder, Adult The bladder [...] bladder, your (more content not included)... Normal [facility] Urology Office/Clinic Noteon 08-07-2020 Urology Office/Clinic [...] setting of nocturia q2hrs and daytime frequency u5mfiff with painful post void bladder sensation of [...] [address] (more content not included)... Normal [facility] Comment on above: Result Comment: Elec tronically Signed By: Dawna Marmolejo MD\.br\Date and Time Signed: 08/07/20 15:54 EDT\.br\Electronically Co-Signed By: Radha Lopez MA\.br\Date and Time Co-Signed: 08/07/20 15:44 EDT Vital Signs Date Time Vital Sign Value Performing Clinician Facility 04-12-2024 13:10-0400 Diastolic blood pressure 75 mm[Hg] Milagros Franco MD, PhD Work Phone: [facility] 04-12-2024 13:10-0400 Heart rate 62 /min Milagros Franco MD, PhD Work Phone: [facility] 04-12-2024 13:10-0400 Respiratory rate 20 /min Milagros Franco MD, PhD Work Phone: [facility] 04-12-2024 13:10-0400 SaO2% (BldA) [Mass fraction] 100 % Milagros Franco MD, PhD Work Phone: [facility] 04-12-2024 13:10-0400 Systolic blood pressure 121 mm[Hg] Milagros Franco MD, PhD Work Phone: [facility] 04-12-2024 11:35-0400 Body height 162.6 cm Milagros Franco MD, PhD Work Phone: [facility] 04-12-2024 11:35-0400 Body mass index (BMI) [Ratio] 25.75 kg/m2 Milagros Franco MD, PhD Work Phone: [facility] 04-12-2024 11:35-0400 Body temperature 97.9 [degF] Milagros Franco MD, PhD Work Phone: [facility] 04-12-2024 11:35-0400 Body weight 68.04 kg Milagros Franco MD, PhD Work Phone: [facility] 02-27-2024 09:48-0400 Body height 162.6 cm Flower Payam DIESEL SERVICE APPRENTICE.NET WASHER Work Phone: [facility] 02-27-2024 09:48-0400 Body mass index (BMI) [Ratio] 26.45 kg/m2 Flower Payam DIESEL SERVICE APPRENTICE.NET WASHER Work Phone: [facility] 02-27-2024 09:48-0400 Body weight 69.9 kg Flower Payam DIESEL SERVICE APPRENTICE.NET WASHER Work Phone: [facility] 02-27-2024 09:48-0400 Diastolic blood pressure 93 mm[Hg] Flower Payam DIESEL SERVICE APPRENTICE.NET WASHER Work Phone: [facility] 02-27-2024 09:48-0400 Heart rate 62 /min Flower Payam DIESEL SERVICE APPRENTICE.NET WASHER Work Phone: [facility] 02-27-2024 09:48-0400 Systolic blood pressure 146 mm[Hg] Flower Payam DIESEL SERVICE APPRENTICE.NET WASHER Work Phone: [facility] 01-25-2024 09:05-0400 Body height 162.6 cm [facility] Work Phone: [facility] 01-25-2024 09:05-0400 Body weight 68.04 kg [facility] Work Phone: [facility] 01-25-2024 09:05-0400 Heart rate 84 /min [employer] Work Phone: [facility] 01-25-2024 09:05-0400 Respiratory rate 16 /min [employer] Work Phone: [facility] 01-10-2024 12:40-0500 Body height 162.6 cm Cullen Dawkins MD Work Phone: [facility] 01-10-2024 12:40-0500 Body mass index (BMI) [Ratio] 27.89 kg/m2 Cullen Dawkins MD Work Phone: [facility] 01-10-2024 12:40-0500 Body weight 73.7 kg Cullen Dawkins MD Work Phone: [facility] 12-20-2023 12:21-0500 Body height 162.6 cm [facility] 13 [facility] 12-20-2023 12:21-0500 Body mass index (BMI) [Ratio] 28.38 kg/m2 [facility] 13 [facility] 12-20-2023 12:21-0500 Body temperature 98.2 [degF] [facility] 13 [facility] 12-20-2023 12:21-0500 Body weight 75 kg [facility] 13 [facility] 12-20-2023 12:21-0500 Diastolic blood pressure 90 mm[Hg] [facility] 13 [facility] 12-20-2023 12:21-0500 Heart rate 72 /min [facility] 13 [facility] 12-20-2023 12:21-0500 Respiratory rate 18 /min [facility] 13 [facility] 12-20-2023 12:21-0500 SaO2% (BldA) [Mass fraction] 96 % [facility] 13 [facility] 12-20-2023 12:21-0500 Systolic blood pressure 138 mm[Hg] [facility] 13 [facility] 11-23-2023 08:14-0500 Body height 162.56 cm DO Shannon Gómez Work Phone: [facility] 11-23-2023 08:14-0500 Body weight 70.3 kg DO Shannon Gómez Work Phone: [facility] 08-12-2023 07:08-0400 Diastolic blood pressure 65 mm[Hg] Lex Salmon MD Work Phone: [facility] 08-12-2023 07:08-0400 Heart rate 77 /min Lex Salmon MD Work Phone: [facility] 08-12-2023 07:08-0400 SaO2% (BldA) [Mass fraction] 98 % Lex Salmon MD Work Phone: [facility] 08-12-2023 07:08-0400 Systolic blood pressure 132 mm[Hg] Lex Salmon MD Work Phone: [facility] 08-12-2023 06:48-0400 Respiratory rate 13 /min Lex Salmon MD Work Phone: [facility] 08-12-2023 00:25-0400 Body height 162.6 cm Lex Salmon MD Work Phone: [facility] 08-12-2023 00:25-0400 Body mass index (BMI) [Ratio] 28.01 kg/m2 Lex Salmon MD Work Phone: [facility] 08-12-2023 00:25-0400 Body temperature 97.59 [degF] Lex Salmon MD Work Phone: [facility] 08-12-2023 00:25-0400 Body weight 74.03 kg Lex Salmon MD Work Phone: [facility] 07-31-2023 14:27-0400 Body height 162.6 cm Nelsy Chávez APRN.NET WASHER Work Phone: [facility] 07-31-2023 14:27-0400 Body weight 69.85 kg Nelsy Chávez APRN.NET WASHER Work Phone: [facility] 07-31-2023 14:27-0400 Diastolic blood pressure 96 mm[Hg] Nelsy Chávez DIESEL SERVICE APPRENTICE.NET WASHER Work Phone: [facility] 07-31-2023 14:27-0400 Heart rate 76 /min Nelsy Chávez DIESEL SERVICE APPRENTICE.NET WASHER Work Phone: [facility] 07-31-2023 14:27-0400 Systolic blood pressure 136 mm[Hg] Nelsy Chávez DIESEL SERVICE APPRENTICE.NET WASHER Work Phone: [facility] 06-13-2023 10:37-0400 Body height 162.56 cm Eliceo Braden Stephonleigha Work Phone: [facility] [facility] DO Work Phone: 06-13-2023 10:37-0400 Body mass index (BMI) [Ratio] 27.46 kg/m2 Eliceo Gómez Work Phone: [facility] [facility] DO Work Phone: 06-13-2023 10:37-0400 Body surface area Derived from formula 1.78 m2 Eliceo Braden Stephonbijutomasa Work Phone: [facility] [facility] DO Work Phone: 06-13-2023 10:37-0400 Body weight 72.58 kg Eliceo Asiya Szymanskileigha Work Phone: [facility] [facility] DO Work Phone: 06-13-2023 10:37-0400 Diastolic blood pressure 70 mm[Hg] Eliceo Ngtomasa Work Phone: [facility] [facility] DO Work Phone: 06-13-2023 10:37-0400 Heart rate 70 /min Eliceo Gómez Work Phone: [facility] [facility] DO Work Phone: 06-13-2023 10:37-0400 Systolic blood pressure 100 mm[Hg] Eliceo Gómez Work Phone: [facility] [facility] DO Work Phone: 06-13-2023 10:37-0400 11 1 Eliceo Gómez Work Phone: [facility] [facility] DO Work Phone: Comment on above: PHQ-9 TS 06-05-2023 13:23-0400 Diastolic blood pressure 68 mm[Hg] DO Shannon Gómez Work Phone: [facility] 06-05-2023 13:23-0400 Heart rate 72 /min DO Shannon Gómez Work Phone: [facility] 06-05-2023 13:23-0400 Respiratory rate 18 /min DO Shannon Gómez Work Phone: [facility] 06-05-2023 13:23-0400 SaO2% (BldA) [Mass fraction] 97 % DO Shannon Gómez Work Phone: [facility] 06-05-2023 13:23-0400 Systolic blood pressure 129 mm[Hg] DO Shannon Gómez Work Phone: [facility] 06-05-2023 09:32-0400 Body height 162.56 cm DO Shannon Gómez Work Phone: [facility] 06-05-2023 09:32-0400 Body weight 73.9 kg DO Shannon Gómez Work Phone: [facility] 06-05-2023 09:31-0400 Body temperature 97.5 [degF] DO Shannon Gómez Work Phone: [facility] 01-16-2023 13:18-0400 Body height 162.6 cm [facility] 01-16-2023 13:18-0400 Body weight 68.04 kg [facility] 11-21-2022 08:00-0500 Body height 162.6 cm [facility] Work Phone: [facility] 11-21-2022 08:00-0500 Body weight 64.86 kg [facility] Work Phone: [facility] 10-11-2022 10:08-0500 Body height 162.6 cm Isra Galarzae DO Work Phone: [facility] 10-11-2022 10:08-0500 Body weight 78.02 kg Isra Galarzae DO Work Phone: [facility] 10-11-2022 10:08-0500 Diastolic blood pressure 97 mm[Hg] Isra Masters DO Work Phone: [facility] 10-11-2022 10:08-0500 Heart rate 89 /min Isra Masters DO Work Phone: [facility] 10-11-2022 10:08-0500 Systolic blood pressure 141 mm[Hg] Isra Masters DO Work Phone: [facility] 10-10-2022 14:30-0500 Body height 162.56 cm Beto Olexa Other [facility] [employer] Other 10-10-2022 14:30-0500 Body mass index (BMI) [Ratio] 28.66 kg/m2 Beto Olexa Other [facility] [employer] Other 10-10-2022 14:30-0500 Body weight 75.75 kg Beto Olexa Other [facility] [employer] Other 07-26-2022 11:13-0400 Body height 162.6 cm Mary Obrien MD Work Phone: [facility] 07-26-2022 11:13-0400 Body temperature 97.5 [degF] Mary Obrien MD Work Phone: [facility] 07-26-2022 11:13-0400 Body weight 77.56 kg Mary Obrien MD Work Phone: [facility] 07-26-2022 11:13-0400 Diastolic blood pressure 83 mm[Hg] Mary Obrien MD Work Phone: [facility] 07-26-2022 11:13-0400 Heart rate 95 /min Mary Obrien MD Work Phone: [facility] 07-26-2022 11:13-0400 SaO2% (BldA) [Mass fraction] 97 % Mary Obrien MD Work Phone: [facility] 07-26-2022 11:13-0400 Systolic blood pressure 110 mm[Hg] Mary Obrien MD Work Phone: [facility] 05-26-2022 11:45-0400 Body height 162.56 cm Beto Harris Other [employer] Other 05-26-2022 11:45-0400 Body mass index (BMI) [Ratio] 29.18 kg/m2 Beto Harris Other [employer] Other 05-26-2022 11:45-0400 Body weight 77.11 kg Beto Harris Other [employer] Other 05-12-2022 09:06-0400 Diastolic blood pressure 80 mm[Hg] Eliceo Gómez Work Phone: [facility] [facility] DO Work Phone: 05-12-2022 09:06-0400 Systolic blood pressure 126 mm[Hg] Eliceo Gómez Work Phone: [facility] DO Work Phone: 05-12-2022 08:57-0400 Body height 162.56 cm Eliceo Gómez Work Phone: [facility] DO Work Phone: 05-12-2022 08:57-0400 Body mass index (BMI) [Ratio] 29.87 kg/m2 Eliceo Gómez Work Phone: [facility] [facility] DO Work Phone: 05-12-2022 08:57-0400 Body surface area Derived from formula 1.84 m2 Eliceo Gómez Work Phone: [facility] [facility] DO Work Phone: 05-12-2022 08:57-0400 Body weight 78.93 kg Eliceo Gómez Work Phone: [facility] [facility] DO Work Phone: 05-12-2022 08:57-0400 Diastolic blood pressure 80 mm[Hg] Eliceo Gómez Work Phone: [facility] DO Work Phone: 05-12-2022 08:57-0400 Heart rate 68 /min Eliceo Gómez Work Phone: [facility] DO Work Phone: 05-12-2022 08:57-0400 Systolic blood pressure 130 mm[Hg] Eliceo Gómez Work Phone: [facility] DO Work Phone: 05-10-2022 12:30-0400 Body height 162.56 cm Allison Arita Other [employer] Other 05-10-2022 12:30-0400 Body mass index (BMI) [Ratio] 29.18 kg/m2 Allison Arita Other [employer] Other 05-10-2022 12:30-0400 Body temperature 97.3 [degF] Allison Arita Other [employer] Other 05-10-2022 12:30-0400 Body weight 77.11 kg Allison Arita Other [employer] Other 05-10-2022 12:30-0400 Respiratory rate 18 /min Allison Arita Other [employer] Other 05-10-2022 12:30-0400 SaO2% (BldA) [Mass fraction] 98 % Allison Arita Other [employer] Other 04-22-2022 12:04-0400 Body height 162.6 cm Jessi Sheets DIESEL SERVICE APPRENTICE.NET WASHER Work Phone: [facility] 04-22-2022 12:04-0400 Body weight 77.56 kg Jessi Sheets DIESEL SERVICE APPRENTICE.NET WASHER Work Phone: [facility] 04-22-2022 12:04-0400 Diastolic blood pressure 68 mm[Hg] Jessi Willmakenzie DIESEL SERVICE APPRENTICE.NET WASHER Work Phone: [facility] 04-22-2022 12:04-0400 Heart rate 76 /min Jessi Sheets DIESEL SERVICE APPRENTICE.NET WASHER Work Phone: [facility] 04-22-2022 12:04-0400 SaO2% (BldA) [Mass fraction] 98 % Jessi Sheets DIESEL SERVICE APPRENTICE.NET WASHER Work Phone: [facility] 04-22-2022 12:04-0400 Systolic blood pressure 104 mm[Hg] Jessi Willmakenzie DIESEL SERVICE APPRENTICE.NET WASHER Work Phone: [facility] 03-15-2022 16:30-0400 Body height 162.56 cm Beto Harris Other [employer] Other 03-15-2022 16:30-0400 Body mass index (BMI) [Ratio] 30.55 kg/m2 Beto Harris Other [employer] Other 03-15-2022 16:30-0400 Body weight 80.74 kg Beto Harris Other [facility] [employer] Other 03-15-2022 08:36-0400 Body height 162.6 cm Isra Masters DO Work Phone: [facility] 03-15-2022 08:36-0400 Body weight 83.01 kg Isra Masters DO Work Phone: [facility] 03-15-2022 08:36-0400 Diastolic blood pressure 87 mm[Hg] Isra Galarzae DO Work Phone: [facility] 03-15-2022 08:36-0400 Heart rate 85 /min Isra Galarzae DO Work Phone: [facility] 03-15-2022 08:36-0400 SaO2% (BldA) [Mass fraction] 100 % Isra Masters DO Work Phone: [facility] 03-15-2022 08:36-0400 Systolic blood pressure 133 mm[Hg] Isra Galarzae DO Work Phone: [facility] 03-14-2022 10:23-0400 Body height 162.6 cm [facility] 4 Work Phone: [facility] 03-14-2022 10:23-0400 Body temperature 97.2 [degF] [facility] 4 Work Phone: [facility] 03-14-2022 10:23-0400 Body weight 83.01 kg [facility] 4 Work Phone: [facility] 03-14-2022 10:23-0400 Diastolic blood pressure 76 mm[Hg] Pacc 4 Work Phone: [facility] 03-14-2022 10:23-0400 Heart rate 74 /min [facility]acc 4 Work Phone: [facility] 03-14-2022 10:23-0400 Respiratory rate 16 /min [facility] 4 Work Phone: [facility] 03-14-2022 10:23-0400 SaO2% (BldA) [Mass fraction] 98 % [facility] 4 Work Phone: [facility] 03-14-2022 10:23-0400 Systolic blood pressure 114 mm[Hg] Pac 4 Work Phone: [facility] 02-18-2022 09:43-0400 Body height 162.6 cm Nelsygregory Chávez DIESEL SERVICE APPRENTICE.NET WASHER Work Phone: [facility] 02-18-2022 09:43-0400 Body weight 80.29 kg Nelsygregory Chávez DIESEL SERVICE APPRENTICE.NET WASHER Work Phone: [facility] 02-18-2022 09:43-0400 Diastolic blood pressure 70 mm[Hg] Nelsy Chávez DIESEL SERVICE APPRENTICE.NET WASHER Work Phone: [facility] 02-18-2022 09:43-0400 Systolic blood pressure 110 mm[Hg] Nelsy Chávez DIESEL SERVICE APPRENTICE.NET WASHER Work Phone: [facility] 02-08-2022 14:52-0400 Body height 162.6 cm Mary Obrien MD Work Phone: [facility] 02-08-2022 14:52-0400 Body weight 83.01 kg Mary Obrien MD Work Phone: [facility] 02-08-2022 14:52-0400 Diastolic blood pressure 76 mm[Hg] Mary Obrien MD Work Phone: [facility] 02-08-2022 14:52-0400 Heart rate 79 /min Mary Obrien MD Work Phone: [facility] 02-08-2022 14:52-0400 SaO2% (BldA) [Mass fraction] 97 % Mary Obrien MD Work Phone: [facility] 02-08-2022 14:52-0400 Systolic blood pressure 113 mm[Hg] Mary Obrien MD Work Phone: [facility] 02-08-2022 11:19-0400 Body weight 83.01 kg Magali Mitchell DIESEL SERVICE APPRENTICE.NET WASHER Work Phone: [place] [address]-05-2022 11:19-0400 Diastolic blood pressure 76 mm[Hg] Magali Mitchell DIESEL SERVICE APPRENTICE.NET WASHER Work Phone: [facility] 02-08-2022 11:19-0400 Heart rate 74 /min Magali Mitchell DIESEL SERVICE APPRENTICE.NET WASHER Work Phone: [facility] 02-08-2022 11:19-0400 Systolic blood pressure 113 mm[Hg] Magali Mitchell DIESEL SERVICE APPRENTICE.NET WASHER Work Phone: [facility] 10-20-2021 09:45-0500 Body height 162.56 cm Beto Harris Other [employer] Other 10-20-2021 09:45-0500 Body mass index (BMI) [Ratio] 31.41 kg/m2 Beto Harris Other [employer] Other 10-20-2021 09:45-0500 Body weight 83.01 kg Beto Harris Other [employer] Other 08-19-2021 17:10-0400 Body height 162.56 cm Erica Kingston Other [employer] Other 08-19-2021 17:10-0400 Body mass index (BMI) [Ratio] 31.24 kg/m2 Erica Kingston Other [employer] Other 08-19-2021 17:10-0400 Body temperature 97.3 [degF] Erica Kingston Other [employer] Other 08-19-2021 17:10-0400 Body weight 82.56 kg Erica Kingston Other [employer] Other 08-19-2021 17:10-0400 Diastolic blood pressure 82 mm[Hg] Erica Kingston Other [employer] Other 08-19-2021 17:10-0400 Respiratory rate 18 /min Erica Kingston Other [employer] Other 08-19-2021 17:10-0400 SaO2% (BldA) [Mass fraction] 98 % Erica Kingston Other [employer] Other 08-19-2021 17:10-0400 Systolic blood pressure 126 mm[Hg] Erica Kingston Other [employer] Other 08-13-2021 10:15-0400 Body height 162.56 cm Tita Ginty Other [employer] Other 08-13-2021 10:15-0400 Body mass index (BMI) [Ratio] 30.89 kg/m2 Tita Ginty Other [employer] Other 08-13-2021 10:15-0400 Body temperature 6 [degF] Tita Ginty Other [employer] Other 08-13-2021 10:15-0400 Body weight 81.65 kg Tita Ginty Other [employer] Other 08-13-2021 10:15-0400 SaO2% (BldA) [Mass fraction] 99 % Tita Ginty Other [employer] Other 07-28-2021 09:30-0400 Body height 162.56 cm Beto Harris Other [employer] Other 07-28-2021 09:30-0400 Body mass index (BMI) [Ratio] 30.89 kg/m2 Beto Harris Other [employer] Other 07-28-2021 09:30-0400 Body weight 81.65 kg Beto Harris Other [employer] Other Encounters Encounter Date Encounter Type Care Provider Facility Start: 04-15-2024 End: 04-15-2024 ambulatory SIDNEY AMEZQUITA Not Available Start: 04-12-2024 ambulatory Shannon Ramos ty:[facility] Start: 04-12-2024 End: 04-12-2024 Subsequent hospital visit by physician Milagros Franco MD, PhD Work Phone: [facility] Comment on above: Arrived Start: 04-03-2024 End: 04-03-2024 ambulatory [facility] Start: 03-26-2024 End: 03-26-2024 ambulatory JES MARTINEZ Not Available Start: 03-25-2024 End: 03-26-2024 ambulatory Ace Ahumada MD Facility: [facility] Start: 03-14-2024 End: 03-14-2024 ambulatory RON KING Not Available Start: 03-12-2024 ambulatory Flower huang DIESEL SERVICE APPRENTICE.NET WASHER Work Phone: URO/Gynecology Comment on above: Estradiol vaginal cr eam Start: 03-08-2024 ambulatory SELF SELF Facility:[facility] Start: 03-06-2024 ambulatory RADHA CARDENAS Facilit y:[facility] Start: 03-06-2024 ambulatory RADHA CARDENAS Facilit y:[facility] Start: 03-06-2024 ambulatory Shannon Ramos ty:[facility] Start: 03-04-2024 End: 03-05-2024 ambulatory Ace Ahumada MD Facility:[facility] Start: 02-27-2024 End: 02-27-2024 ambulatory FLOWER LOPEZ Facility:[facility] Start: 02-27-2024 End: 02-27-2024 Patient encounter procedure Flower Payam DIESEL SERVICE APPRENTICE.NET WASHER Work Phone: URO/Gynecology Comment on above: Post-operative state (Primary Dx); Vaginal burning Start: 02-26-2024 End: 02-27-2024 ambulatory Ace Ahumada MD Facility:[facility] Start: 02-11-2024 End: 02-11-2024 ambulatory ELICEO LUGO STEPHONLEIGHA JENKINS Facility:[facility] Start: 02-11-2024 End: 02-11-2024 ambulatory Lissa Doyle DIESEL SERVICE APPRENTICE.NET WASHER Work Phone: Telemedicine Comment on above: Procedure and treatm ent not carried out for other reasons (Primary Dx) Start: 02-11-2024 End: 02-11-2024 Telemedicine consultation with patient Lissa Doyle DIESEL SERVICE APPRENTICE.NET WASHER Work Phone: [facility] Start: 02-09-2024 End: 02-09-2024 ambulatory Pam Wang MD Work Phone: URO/Gynecology Comment on above: Yeast infection Start: 02-07-2024 End: 02-07-2024 ambulatory [facility] Start: 01-27-2024 Telephone encounter Radha florez MD Work Phone: Gynecology Start: 01-26-2024 End: 01-26-2024 ambulatory ELICEO SZYMANSKILEIGHA Facility:[facility] Start: 01-25-2024 End: 01-25-2024 Telemedicine consultation with patient Nurse Nurse Coordinator Work Phone: [facility] Start: 01-25-2024 Encounter for other preprocedural examination P[facility] Start: 01-25-2024 End: 01-25-2024 Admission to [facility] Work Phone: [facility] Start: 01-25-2024 End: 01-25-2024 ambulatory Nurse Nurse Coordinator Work Phone: Pre Anesthesia Comment on above: Pre-op examination ( Primary Dx); Obesity (BMI 30.0-34.9); Mild persistent asthma without complication; CHUCKIE (obstructive sleep apnea); Primary hypertension; Gastroparesis; Gastroesophageal reflux disease, unspecified whether esophagitis present Educational circumst ances (Primary Dx) Start: 01-25-2024 End: 01-25-2024 Preprocedural examination done [facility] Work Phone: [facility] Work Phone: Start: 01-23-2024 End: 01-23-2024 ambulatory ELICEO GÓMEZ Not Available Start: 01-15-2024 End: 01-16-2024 ambulatory Ace Ahumada MD Facility:[facility] Start: 01-10-2024 End: 01-10-2024 ambulatory [facility] Start: 01-10-2024 End: 01-10-2024 Postop follow up visit related to original px Cullen Dawkins MD Work Phone: [facility] Comment on above: CHUCKIE (obstructive sle ep apnea) (Primary Dx) Start: 01-03-2024 End: 01-03-2024 Evaluation and management of inpatient NEEDMORE Asiya [facility] Start: 01-02-2024 End: 01-03-2024 Evaluation and management of inpatient [facility] Start: 01-02-2024 End: 01-02-2024 Evaluation and management of inpatient [facility] Start: 12-27-2023 Telephone encounter Cullen glover MD Work Phone: [facility] Start: 12-25-2023 End: 12-26-2023 ambulatory Pam Wang MD Work Phone: URO/Gynecology Comment on above: Having another stimu lator besides bladder Start: 12-25-2023 Telephone encounter Pam simon MD Work Phone: Gynecology Comment on above: Question Start: 12-20-2023 End: 12-20-2023 ambulatory [facility] Start: 12-20-2023 Encounter for other preprocedural examination [facility] Start: 12-20-2023 End: 12-20-2023 Patient encounter procedure [facility] Provider 13 [facility] Comment on above: Pre-op testing (Prim tomer Dx) Start: 12-20-2023 End: 12-20-2023 Patient encounter status [facility] Start: 12-11-2023 End: 12-12-2023 ambulatory Ace Ahumada MD Facility: [place] Start: 11-30-2023 End: 11-30-2023 ambulatory EAGLE VAZQUEZ Not Available Start: 11-27-2023 End: 11-27-2023 ambulatory Beto Harris Other [employer] Other Start: 11-27-2023 Telephone encounter [facility] Start: 11-23-2023 End: 11-23-2023 ambulatory Eagle Vazquez Facility:[facility] Start: 11-23-2023 End: 11-23-2023 ambulatory DO Shannon Gómez Work Phone: [facility] Work Phone: Start: 11-23-2023 End: 11-23-2023 Patient encounter procedure DO Shannon Gómez Work Phone: [facility] Work Phone: Start: 11-21-2023 End: 11-21-2023 ambulatory ELICEO GÓMEZ JR Facility:[facility] Start: 11-16-2023 End: 11-16-2023 ambulatory Beto Harris Other [employer] Other Start: 11-16-2023 Telephone encounter [facility] Start: 11-14-2023 End: 11-14-2023 ambulatory DIPTI ACEVEDO Not Available Start: 11-14-2023 End: 11-14-2023 ambulatory EAGLE VAZQUEZ Not Available Start: 11-10-2023 End: 11-10-2023 ambulatory ELICEO GÓMEZ Not Available Start: 11-08-2023 Telephone encounter Emily Zamora [facility] Start: 10-31-2023 End: 10-31-2023 ambulatory RON KING Not Available Start: 10-27-2023 End: 10-27-2023 ambulatory EAGLE VAZQUEZ Not Available Start: 10-26-2023 Telephone encounter [facility] Start: 10-26-2023 End: 10-26-2023 ambulatory RON Nicole PAYTONLeah [facility] [employer] Other Start: 10-24-2023 End: 10-24-2023 ambulatory EAGLE VAZQUEZ Not Available Start: 10-23-2023 End: 10-23-2023 ambulatory [facility] Start: 10-10-2023 End: 10-10-2023 ambulatory ELICEO GÓMEZ JR Facility:[facility] Start: 10-06-2023 End: 10-06-2023 ambulatory Beto Harris Other [facility] [employer] Other Start: 10-06-2023 Telephone encounter [facility] Start: 10-03-2023 End: 10-03-2023 ambulatory ELICEO GÓMEZ Not Available Start: 09-27-2023 End: 09-27-2023 ambulatory Pam Wang MD Work Phone: Urogynecology Comment on above: Worsening Start: 09-27-2023 Refill Doris Arias APRN.CNP Work Phone (unformatted): [phone] Urogynecology Comment on above: Med Change Request Start: 09-21-2023 End: 09-21-2023 ambulatory ELICEO GÓMEZ Not Available Start: 09-11-2023 End: 09-11-2023 ambulatory PAM WANG Facility:[facility] Start: 08-23-2023 End: 08-23-2023 ambulatory GIANA [facility] Start: 08-12-2023 End: 08-12-2023 Emergency department patient visit LEX SALMON [facility] Start: 08-12-2023 End: 08-12-2023 Emergency department patient visit Lex Salmon MD Work Phone: [facility] Comment on above: Upper abdominal pain (Primary Dx) Start: 08-09-2023 ambulatory Mary Obrien MD Work Phone: Colorectal Surgery Comment on above: Response Start: 08-07-2023 End: 08-07-2023 ambulatory Mary Obrien MD Work Phone: Colorectal Surgery Comment on above: Colon Start: 08-01-[address] Eliceo Gómez Jr Facility: Start: 07-31-2023 End: 07-31-2023 ambulatory ELICEO GÓMEZ JR Facility:[facility] Start: 07-31-2023 End: 07-31-2023 Patient encounter procedure Nelsy Chávez HARMAN Work Phone: URO/Gynecology Comment on above: Incomplete bladder e mptying (Primary Dx); Constipation, unspecified constipation type; Urinary urgency; Urinary frequency; Nocturia Start: 07-25-2023 End: 07-25-2023 ambulatory [facility] Start: 07-17-2023 (Procedure) Short Beto Harris [facility] Start: 07-17-2023 End: 07-17-2023 ambulatory Beto Harris Other [facility] [employer] Other Start: 07-12-2023 End: 07-12-2023 ambulatory Beto Harris Other [facility] [employer] Other Start: 07-12-2023 Telephone encounter [facility] Start: 06-13-2023 Office consultation new/estab patient 60 min Eliceo Gómez Work Phone: [facility] [employer] DO Work Phone: Start: 06-13-[address] Dipti Anaya Facility: Start: 06-08-2023 End: 06-08-2023 ambulatory [facility] Start: 06-07-[address] Dipti Anaya Facility:[id number] Start: 06-05-2023 End: 06-05-2023 Emergency department patient visit Anibal Vlale Facility:[facility] Start: 06-05-2023 End: 06-05-2023 Emergency department patient visit DO Shannon Gómez Work Phone: [facility] Work Phone: Start: 05-31-2023 End: 05-31-2023 ambulatory SIOMARA MONTAGUE [facility] Start: 05-28-2023 ambulatory Pam rios MD Work Phone: URO/Gynecology Comment on above: Problems with urinat ing Start: 05-22-2023 End: 05-22-2023 ambulatory [facility] Start: 05-17-2023 End: 05-17-2023 [facility] Start: 05-17-2023 End: 05-17-2023 ambulatory RADHA [facility] Start: 04-26-2023 End: 04-26-2023 ambulatory Beto Harris Other [employer] Other Start: 04-26-2023 Office outpatient vi sit 25 minutes Beto Harris [facility] [place] Start: 04-11-2023 Refill Isra Thorpe Clin e DO Work Phone: Gastroenterology Comment on above: Refill Request Start: 04-04-2023 End: 04-05-[address] Isatu GÓMEZ Facility:H1 Start: 03-19-2023 ambulatory Isra Thorpe Clin e DO Work Phone: Gastroenterology Comment on above: Stool sample results Start: 03-17-2023 End: 03-17-2023 ambulatory Niecy Duron Facility:[facility] Start: 03-17-2023 End: 03-17-2023 ambulatory DO Shannon Gómez Work Phone: [facility] Work Phone: Start: 03-17-2023 End: 03-17-2023 Discharged Recurring DO Shannon Gómez Work Phone: [facility] [place] Work Phone: Start: 03-15-2023 Orders Only Isra Thorpe Michell rios DO Work Phone: Gastroenterology Comment on above: Diarrhea due to power bsorption (Primary Dx) What lab? Start: 03-06-2023 End: 03-06-[address] Isatu GÓMEZ Facility:H1 Start: 02-21-2023 End: 02-22-[address] Isatu GÓMEZ Facility:H1 Start: 02-19-2023 End: 02-19-[address] Isatu GÓMEZ Facility:H1 Start: 01-31-2023 End: 02-01-2023 ambulatory NIECY DURON Facility:H1 Start: 01-27-2023 End: 01-27-[address] Isatu GÓMEZ Facility:H1 Start: 01-20-2023 ambulatory Winston chand DO Work Phone: General Surgery Comment on above: Clarification Start: 01-19-2023 ambulatory Winston chand DO Work Phone: General Surgery Comment on above: General Start: 01-16-2023 Telephone encounter Mounika farrell PA-C Work Phone: Pre Anesthesia Comment on above: Appointment (Pt has not arrived for her 1 pm appointment) Start: 01-16-2023 End: 01-16-2023 Admission to establishment [facility] [place] Start: 01-16-2023 End: 01-16-2023 ambulatory Pac Virtual Pre Anesthesia Comment on above: Preop [...] with patient Winston Hannah DO Work Phone: [facility] Start: 12-28-2022 ambulatory Yoni Tuttle MD Work [...] with patient Winston Hannah DO Work Phone: [facility] Start: 12-21-2022 End: 12-22-2022 ambulatory SADE Kenny [facility] Facility: Start: 12-15-2022 End: 12-15-2022 Manual pelvic examination Mary Obrien MD Work Phone: Colorectal Surgery Comment on above: Colonic inertia (Phoebe unique Dx); Pelvic floor dysfunction; Nausea; Gastroparesis Start: 12-15-2022 End: 12-15-2022 Telemedicine consultation with patient Mary Obrien MD Work Phone: T[facility] W[facility] Start: 12-14-2022 ambulatory Yoni uTttle MD Work Phone: NEUROLOGY Comment on above: Right number? Start: 12-09-2022 ambulatory Mary Obrien MD Work Phone: Colorectal Surgery Comment on above: Colon Start: 12-09-2022 Telephone encounter Mary brewer MD Work Phone: Colorectal Surgery Comment on above: Patient Question Start: 12-08-2022 Telephone encounter Isra Galarzae DO Work Phone: Gastroenterology Comment on above: Results (Sigmoidosco py results; patient questions) Start: 12-07-2022 ambulatory Winston Zoya Velazquez c DO Work Phone: General Surgery Comment on above: Carafate Start: 12-06-2022 ambulatory Isra S Clin e DO Work Phone: Gastroenterology Comment on above: Results Start: 12-05-2022 ambulatory Winston Kenny Caroline c DO Work Phone: [facility] Start: 12-02-2022 ambulatory Isra S Clin e DO Work Phone: [facility] Start: 12-02-2022 Telephone encounter Yoni Tuttle MD Work Phone: Neurology Comment on above: Returning Nurse Call Start: 12-01-2022 End: 12-02-2022 ambulatory NIECY DURON Facility:H1 Start: 11-30-2022 End: 11-30-2022 ambulatory Isra S Masters DO Work Phone: Gastroenterology Comment on above: Chronic idiopathic c onstipation (Primary Dx); Nausea Start: 11-30-2022 End: 11-30-2022 Telemedicine consultation with patient Isra S Masters DO Work Phone: [facility] Start: 11-24-2022 ambulatory Isra S Clin e DO Work Phone: Gastroenterology Comment on above: SMART PILL RESULTS Approval for upcomin g pap titration test Start: 11-24-2022 Telephone encounter Yoni Tuttle MD Work Phone: Neurology Comment on above: Is PA Needed for PAP Titration Start: 11-22-2022 Telephone encounter Isra S Masters DO Work Phone: Gastroenterology Comment on above: Patient Update Start: 11-21-2022 End: 11-21-2022 ambulatory Yoni Tuttle MD Work Phone: Pre Anesthesia Comment on above: Pre-op exam (Primary Dx); Primary hypertension; Mild persistent asthma without complication; Gastroparesis; CHUCKIE (obstructive sleep apnea) Orders Start: 11-21-2022 End: 11-21-2022 [facility] Start: 11-21-2022 End: 11-21-2022 Preprocedural examination done [facility] 2 Work Phone: Pre Anesthesia Start: 11-17-2022 ambulatory Annmarie Gillespie RN Gastroe nterology Start: 11-17-2022 Patient encounter procedure Annmarie Gillespie RN [facility] Start: 11-17-2022 End: 11-17-2022 Subsequent hospital visit by physician Capsule Work Phone: Gastroenterology Start: 11-16-2022 ambulatory Yoni Tuttle MD Work Phone: NEUROLOGY Comment on above: The delay Start: 11-15-2022 ambulatory Yoni Tuttle MD Work Phone: NEUROLOGY Comment on above: Labs Start: 11-14-2022 End: 11-15-2022 ambulatory NIECY KAREEM Facility:H1 Start: 11-10-2022 Telephone encounter Annmarie Gillespie RNhospice music therapist Comment on above: Preparations For Pro cedures Start: 11-10-2022 End: 11-11-2022 [facility] Start: 11-09-2022 Telephone encounter Yoni Tuttle [...] Encounter for preprocedural laboratory examination SADE WILDE [facility] Start: 10-20-2022 End: 10-20-2022 ambulatory Isra [...] 10-14-2022 ambulatory DO Shannon Gómez Work Phone: [facility] Work Phone: Start: 10-14-2022 End: 10-14-2022 Discharged Recurring DO Shannon Gómez Work Phone: [facility] [place] Work Phone: Start: 10-13-2022 End: 10-14-2022 ambulatory SADE WILDE Facility:H1 Start: 10-13-2022 End: 10-14-2022 Encounter for preprocedural laboratory examination SADE WILDE Facility:H1 Start: 10-11-2022 End: 10-11-2022 ambulatory Beto Cartagena Other [employer] Other Start: 10-11-2022 Telephone encounter Beto Cartagena [facility] [employer] Start: 10-11-2022 End: 10-11-2022 Patient encounter procedure Isra Masters DO Work Phone: Gastroenterology Comment on above: Gas bloat syndrome ( Primary Dx); Chronic idiopathic constipation; Gastroparesis Start: 10-10-2022 End: 10-10-2022 ambulatory Beto Cartagena Other [employer] Other Start: 10-10-2022 Office outpatient ne w 30 minutes Beto Cartagena [facility] Start: 10-06-2022 End: 10-06-2022 ambulatory Beto Harris Other [employer] Other Start: 10-06-2022 Patient encounter procedure Beto Harris [facility] [place] Start: 09-28-2022 Encounter for other preprocedural examination [facility] Start: 09-28-2022 Encounter for preprocedural cardiovascular examination [facility] Start: 09-26-2022 End: 09-27-2022 ambulatory [facility] Facility: Start: 09-22-2022 Office outpatient vi sit 25 minutes Beto Harris [facility] [place] Start: 09-22-2022 Telephone encounter Beto [facility] [place] Start: 09-22-2022 End: 09-22-2022 ambulatory DO Shannon Gómez Work Phone: [employer] Other Start: 09-22-2022 End: 09-22-2022 Patient encounter procedure DO Shannon Gómez Work Phone: [facility] Start: 09-14-2022 End: 09-14-2022 ambulatory Eliceo Gómez Other [employer] Other Start: 09-14-2022 Encounter by sierra Gómez [facility] [place] Start: 09-14-2022 Office outpatient vi sit 15 minutes Beto Harris [facility] [place] Start: 09-14-2022 Telephone encounter Beto BATES G [facility] Start: 08-16-2022 ambulatory Mary Obrien MD Work Phone: Colorectal Surgery Comment on above: CT results Ct scan result quest ion Start: 08-16-2022 E-mail encounter kendra jacinto caregiver Mary Obrien MD Work Phone: [facility] Start: 08-12-2022 End: 08-12-2022 Subsequent hospital visit by physician Ct Prep [facility] Start: 07-27-2022 End: 07-28-2022 ambulatory SADE Kenny [facility] Facility: Start: 07-26-2022 Telephone encounter Isra [...] 06-08-2022 End: 06-08-2022 ambulatory Beto Harris Other [employer] Other Start: 05-30-2022 Refill Mary Obrien MD Work Phone: Colorectal Surgery Comment on above: Refill Request Start: 05-26-2022 End: 05-26-2022 ambulatory Beto Harris Other [employer] Other Start: 05-26-2022 Office outpatient vi sit 25 minutes Beto Harris [facility] [place] Start: 05-12-2022 Office consultation new/estab patient 60 min Eliceo Gómez Work Phone: [facility] DO Work Phone: Start: 05-10-2022 End: 05-10-2022 ambulatory Allison Arita Other [employer] Other Start: 05-10-2022 Office outpatient vi sit 15 minutes Allison rAita [facility] Start: 05-03-2022 Telephone encounter Mary brewer MD Work Phone: Colorectal Surgery Comment on above: Fur Mixer - O ther Start: 04-26-2022 Telephone encounter Mary brewer MD Work Phone: Colorectal Surgery Comment on above: Patient Question Start: 04-22-2022 End: 04-22-2022 Patient encounter procedure Jessi Sheets [employer] Work Phone: Colorectal Surgery Comment on above: Follow-up examinatio n after colorectal surgery (Primary Dx); Pelvic floor dysfunction Start: 04-17-2022 End: 04-17-2022 ambulatory CHASITY FREIRE . Facility: Start: 04-07-2022 Telephone encounter Rachael Kenny [facility] Comment on above: PostOp Follow-up Start: 03-22-2022 Telephone encounter Mary brewer MD Work Phone: Colorectal Surgery Comment on above: Patient Question Start: 03-15-2022 End: 03-15-2022 ambulatory Beto Harris Other [employer] Other Start: 03-15-2022 Office outpatient vi sit 15 minutes Beto Harris [facility] [place] Start: 03-15-2022 Telephone encounter Mary brewer MD Work Phone: Colorectal Surgery Comment on above: Fur Mixer - O ther Medication Preauthor ization (PA for Dexilant renewal) Outside Labs Results Start: 03-15-2022 End: 03-15-2022 Patient encounter procedure Isra Masters DO Work Phone: Gastroenterology Comment on above: Gastroesophageal ref lux disease, unspecified whether esophagitis present; Chronic idiopathic constipation Start: 03-14-2022 End: 03-14-2022 [place] [id number] Work Phone: Pre Anesthesia Comment on above: Preop examination (P rimary Dx); Attention to ileostomy (HCC); Primary hypertension; Gastroparesis; Gastroesophageal reflux disease, unspecified whether esophagitis present; Mild persistent asthma without complication; Bipolar 1 disorder ([facility]); Obesity (BMI 30.0-34.9) Start: 03-14-2022 End: 03-14-2022 Preprocedural examination done Pac 4 Work Phone: Pre Anesthesia Start: 02-28-2022 Telephone encounter Isra Mastres DO Work Phone: Gastroenterology Comment on above: Appointment (for scr ipt refill) Start: 02-18-2022 End: 02-18-2022 Patient encounter procedure Nelsy Chávez DANN.NET WASHER Work Phone: URO/Gynecology Comment on above: Postoperative state (Primary Dx) Start: 02-11-2022 End: 02-11-2022 ambulatory Flaca Bartholomew PT Work Phone: [facility] Start: 02-11-2022 End: 02-11-2022 Follow-up encounter Flaca Bartholomew PT Work Phone: [place] [facility] Physical Therapy Comment on above: Pelvic floor dysfunc tion (Primary Dx); Lack of coordination; Follow-up examination after colorectal surgery Start: 02-09-2022 (Procedure) Win Harris [facility] Start: 02-09-2022 End: 02-09-2022 ambulatory Beto Pradeeptonia Other [employer] Other Start: 02-08-2022 End: 02-08-2022 Patient encounter procedure Mary Obrien MD Work Phone: Colorectal Surgery Comment on above: Follow-up examinatio n after colorectal surgery (Primary Dx) Post-operative state (Primary Dx); Yeast infection of the skin Start: 02-01-2022 Refill Isra rios DO Work Phone: Gastroenterology Comment on above: Refill Request (dexl ansoprazole) Start: 01-31-2022 End: 01-31-2022 ambulatory Newton Woodward PT Work Phone: [facility] Start: 01-31-2022 End: 01-31-2022 Follow-up encounter Newton Woodward PT Work Phone: [facility] Physical Therapy Comment on above: Pelvic floor dysfunc tion (Primary Dx); Lack of coordination; Follow-up examination after colorectal surgery Start: 11-25-2021 End: 11-25-2021 ambulatory Beto Harris Other [employer] Other Start: 11-25-2021 Office outpatient vi sit 25 minutes Beto Steven [facility] [place] Start: 11-17-2021 End: 11-18-2021 ambulatory PARISH GÓMEZ [facility] Start: 10-20-2021 End: 10-20-2021 ambulatory Beto Harris Other [employer] Other Start: 10-20-2021 Office outpatient vi sit 25 minutes Beto Steven [facility] [place] Start: 10-13-2021 (Procedure) Short Beto Harris [facility] Start: 10-13-2021 End: 10-13-2021 ambulatory Beto Harris Other [employer] Other Start: 09-06-2021 Office outpatient vi sit 25 minutes Beto Pradeeptonia [facility] [place] Start: 08-19-2021 Office outpatient vi sit 15 minutes Erica Kingstno [facility] Start: 08-13-2021 Office outpatient vi sit 15 minutes Tita Daugherty [facility] Start: 08-12-2021 Office outpatient vi sit 25 minutes Beto Harris [facility] [place] Start: 07-28-2021 Office outpatient vi sit 25 minutes Beto Steven [facility] [place] Procedures Date Procedure Procedure Detail Performing Clinician Start: 04-12-2024 DIAGNOSTIC UPPER ENDOSCOPY Padmaja Ledezma MD, PhD Work Phone: Start: 02-27-2024 BACTERIAL VAGINOSIS NAAT Flower Lopez DIESEL SERVICE APPRENTICE.NET WASHER Work Phone: Start: 02-27-2024 Iadna trichomonas vaginalis amplified probe tech Flower Lopez DIESEL SERVICE APPRENTICE.NET WASHER Work Phone: Start: 02-27-2024 Urnls dip stick/tabl et rgnt auto w/o microscopy Flower Lopez DIESEL SERVICE APPRENTICE.NET WASHER Work Phone: Start: 12-20-2023 Basic metabolic pane l calcium total Caroline Brewer MD Work Phone: Start: 11-23-2023 Radionuclide imaging of liver and/or biliary tract using radioactive isotope Shannon Gómez Work Phone: Start: 11-01-2023 Lipid 1996 panel - S jay or Plasma Pam Wang MD Work Phone: Start: 10-23-2023 Follow-up visit Follow-up PAULINE CHRISTENSEN Start: 10-23-2023 Adult depression scr eening assessment Emily Hisamelia Start: 08-12-2023 Assay of troponin quantitative Lev Ritter APRN [employer] Work Phone: Start: 08-12-2023 Ct abdomen & pelvis w/contrast material Lev Ritter APRN [employer] Work Phone: Start: 08-12-2023 Urnls dip stick/tabl et reagent auto microscopy Lex Salmon MD Work Phone: Start: 08-12-2023 Basic metabolic pane l calcium total Lex Salmon MD Work Phone: Start: 08-12-2023 DARK GREEN TOP Lex buitrago MD Work Phone: Start: 08-12-2023 GOLD TOP Lex urbina MD Work Phone: Start: 08-12-2023 Hepatic function panel Lev Ritter APRN [employer] Work Phone: Start: 08-12-2023 LIGHT BLUE TOP [...] et rgnt auto w/o microscopy Nelsy Chávez DIESEL SERVICE APPRENTICE.NET WASHER Work Phone: Start: 06-05-2023 Plain chest X-ray [...] - S jay or Plasma Nelsy Chávez DIESEL SERVICE APPRENTICE.NET WASHER Work Phone: Start: 02-08-2022 Urnls dip stick/tabl et rgnt auto w/o microscopy Magali Mitchell DIESEL SERVICE APPRENTICE.NET WASHER Work Phone: Start: 12-16-2021 Antibody screen Comment on above: Performed By: #### T [id number] ####[address] [phone] Start: 10-15-2021 Antibody screen Comment on above: Performed By: #### T [id number] ####[address] [phone] Start: 06-28-2021 Mammography Mary brewer MD Work [...] DTAP/TDAP/TD VACCINE (2 - Td or Tdap) [facility] Start: 06-22-2030 DTaP,Tdap and Td Vaccines (2 - Td or Tdap) DTaP,Tdap and Td Vaccines (2 - Td or Tdap) [facility] Start: 06-22-2030 Tetanus vaccination TETANUS [facility] Start: 06-22-2030 Urine microalbumin profile DTaP,Tdap,Td Vaccine (2 - Td or Tdap) [facility] Start: 11-01-2028 Lipid panel Lipid Screening [facility] Start: 12-05-2027 COLORECTAL CANCER SCREENING COLORECTAL CANCER SCREENING [facility] Start: 12-05-2027 Screening for malign ant neoplasm of colon [facility] Start: 12-05-2027 SIGMOIDOSCOPY SIGMOIDOSCOPY [facility] Start: 03-02-2027 Lipid 1996 panel - S jay or Plasma Lipid Screening [facility] Start: 03-02-2027 LIPID SCREEN LIPID SCREEN [facility] Start: 12-20-2026 Diabetes Screening Diabetes Screenin g [facility] Start: 08-12-2026 Diabetes Screening Diabetes Screenin g [facility] Start: 04-05-2025 DIABETES SCREEN DIABETES SCREEN [facility] Start: 04-05-2025 Diabetes Screening Diabetes Screenin g [facility] Start: 03-14-2025 DIABETES SCREEN DIABETES SCREEN [facility] Start: 01-09-2025 Adult BMI Screening Adult BMI Screen ing [facility] Start: 01-09-2025 Tobacco Screening Tobacco Screening [facility] Start: 12-26-2024 DIABETES SCREEN DIABETES SCREEN [facility] Start: 12-20-2024 Adult BMI Screening Adult BMI Screen ing [facility] Start: 12-20-2024 Tobacco Screening Tobacco Screening [facility] Start: 10-31-2024 Screening for malign ant neoplasm of breast Mammogram Screening [facility] Start: 10-23-2024 Adult BMI Screening Adult BMI Screen ing [facility] Start: 10-23-2024 Depression Screening Depression Scre ening [facility] Start: 10-23-2024 Tobacco Screening Tobacco Screening [facility] Start: 10-10-2024 BP Controlled (<130/80) BP Controlle d (<130/80) [facility] Start: 05-31-2024 Zoster vaccine hzv l annika for subcutaneous use ZOSTER (SHINGLES) VACCINE (2 of 2) [facility] Start: 04-18-2024 End: 04-18-2024 Patient encounter procedure 04/18/2024 1:30 PM EDT Office Visit [facility] Neu[facility] [address] [place] [phone] Pauline Christensen MD [address] [place] [address], [address], [address] [place] [address] [facility] Start: 01-10-2024 End: 01-10-2024 Patient encounter procedure 01/10/2024 12:45 PM EST Office Visit [facility] - ENT [address] [place] [address], [address] [place] [phone] Cullen Dawkins MD [address] [place] [address] [address] [place] [address] [facility] Start: 01-02-2024 End: 01-02-2024 Admission to same day surgery center 01/02/2024 11:00 AM EST - 01/02/2024 3:30 PM EST Surgery [facility] [address] [place] [address] Cullen Dawkins MD [address] [place] [address] [address] [place] [phone] INSERTION STIMULATOR NERVE HYPOGLOSSAL [08773 (CPT )] [facility] Comment on above: INSERTION STIMULATOR NERVE HYPOGLOSSAL [02765 (CPT )] Start: 01-02-2024 End: 01-02-2024 INSERTION STIMULATOR NERVE HYPOGLOSSAL INSERTION STIMULATOR NERVE HYPOGLOSSAL CHUCKIE (obstructive sleep apnea) 01/02/2024 11:00 AM EST [facility] SUR[facility] Start: 01-02-2024 Subsequent hospital visit by physician 01/02/2024 11:00 AM EST Hospital Encounter [place] [address] [place] [address] Cullen Dawkins MD [address] [place] [address] [address] [place] [phone] [facility] Start: 11-06-2023 Behavioral Health Screening Behavioral Health Screening [facility] Start: 11-06-2023 Depression Assessment Depression Ass essment [facility] Start: 09-27-2023 End: 12-27-2023 Bacteria identified in Urine by Culture URINE CULTURE Microbiology Routine Burning with urination Expected: 09/27/2023, Expires: 12/27/2023 [facility] Work Phone: Comment on above: Expected: 09/27/2023 , Expires: 12/27/2023 Start: 09-14-2023 Screening for malign ant neoplasm of breast [facility]AMMOGRAM [facility] Start: 08-01-2023 FUV, Provider: Dipti Anaya, Status: Pen, Time: 11:00 AM FUV, Provider: Dipti Anaya, Status: Gopal, Time: 11:00 AM [facility] 320 DO Work Phone: Start: 07-07-2023 Covid-19 Vaccine () Covid-19 Vaccine () [facility] Start: 07-07-2023 Influenza vaccination [facility] Start: 07-07-2023 Influenza vaccinatio n given INFLUENZA VACCINE (#1) [facility] Start: 06-05-2023 [facility] Start: 04-22-2023 BP CONTROLLED (<130/80) BP CONTROLLE D (<130/80) [facility] Start: 03-14-2023 BP CONTROLLED (<130/80) BP CONTROLLE D (<130/80) [facility] Start: 02-18-2023 BP CONTROLLED (<130/80) BP CONTROLLE D (<130/80) [facility] Start: 02-08-2023 BP CONTROLLED (<130/80) BP CONTROLLE D (<130/80) [facility] Start: 01-18-2023 BP CONTROLLED (<130/80) BP CONTROLLE D (<130/80) [facility] Start: 11-06-2022 DEPRESSION ASSESSMENT DEPRESSION ASS ESSMENT [facility] Start: 09-22-2022 [facility] Start: 08-02-2022 End: 08-25-2023 Ct abdomen & pelvis w/contrast material CT ABD/PEL W IVCON Radiology Routine Periumbilical abdominal pain Expected: 08/02/2022, Expires: 08/25/2023 [facility] Work Phone: Comment on above: Expected: 08/02/2022 , Expires: 08/25/2023 Start: 07-07-2022 Influenza vaccination [facility] Start: 06-28-2022 Mammography [facility] Start: 2022 Administration of varicella zoster vaccine Zoster (Shingles) Vaccine (1 of 2) [facility] Start: 2022 COVID-19 VACCINE (4 - Booster for Pfizer series) COVID-19 VACCINE (4 - Booster for Pfizer series) [facility] Start: 2022 SHINGRIX VACCINE (1 of 2) SHINGRIX VACCINE (1 of 2) [facility] Start: 2022 Zoster vaccine hzv l annika for subcutaneous use ZOSTER (SHINGLES) VACCINE (1 of 2) [facility] Start: 04-01-2022 End: 06-01-2022 CBC W Auto Differential panel - Blood CBC + DIFF Lab Routine Follow-up examination after colorectal surgery Expected: 04/01/2022, Expires: 06/01/2022 [facility] Work Phone: Comment on above: Expected: 04/01/2022 , Expires: 06/01/2022 Start: 04-01-2022 End: 06-01-2022 Comprehensive metabolic 2000 panel - Serum or Plasma COMP METABOLIC PANEL Lab Routine Follow-up examination after colorectal surgery Expected: 04/01/2022, Expires: 06/01/2022 [facility] Work Phone: Comment on above: Expected: 04/01/2022 , Expires: 06/01/2022 Start: 04-01-2022 End: 06-01-2022 TYPE AND SCREEN,30 DAY TYPE AND SCREEN,30 DAY Blood Bank Routine Follow-up examination after colorectal surgery Expected: 04/01/2022, Expires: 06/01/2022 [facility] Work Phone: Comment on above: Expected: 04/01/2022 , Expires: 06/01/2022 Start: 01-19-2022 COVID-19 VACCINE (4 - Booster for Pfizer series) COVID-19 VACCINE (4 - Booster for Pfizer series) [facility] Start: 01-19-2022 COVID-19 VACCINE (4 - Pfizer series) COVID-19 VACCINE (4 - Pfizer series) [facility] Start: 11-06-2021 DEPRESSION ASSESSMENT DEPRESSION ASS ESSMENT [facility] Start: 07-07-2021 Influenza vaccination INFLUENZA (#1) [facility] Start: 03-24-2021 Screening for malign ant neoplasm of colon COLORECTAL CANCER SCREENING DISCUSSION [facility] Start: 04-05-2020 Screening for malign ant neoplasm of breast MAMMOGRAM SCREENING DISCUSSION [facility] Start: 2017 COLOGUARD (FIT-DNA) COLOGUARD (FIT-D NA) [facility] Start: 2017 Colonoscopy COLONOSCOPY [facility] Start: 2017 COLORECTAL CANCER SCREENING COLORECTAL CANCER SCREENING [facility] Start: [address] COLONOGRAPHY [facility] Start: 2017 FECAL OCCULT BLOOD FECAL OCCULT BLOO D [facility] Start: 2017 LIPID SCREEN LIPID SCREEN [facility] Start: 2017 Screening for malign ant neoplasm of colon [facility] Start: 2017 SIGMOIDOSCOPY SIGMOIDOSCOPY [facility] Start: 2012 Lipid panel LIPID SCREENING [facility] Start: 2012 Mammography MAMMOGRAM [facility] Start: 10-11-2008 Hepatitis B vaccination HEP B VACCINE (3 of 3 - 19+ 3-dose series) [facility] Start: 10-11-2008 Hepatitis B Vaccine (3 of 3 - 19+ 3-dose series) Hepatitis B Vaccine (3 of 3 - 19+ 3-dose series) [facility] Start: 2002 HPV TESTING HPV TESTING [facility] Start: 2002 Screening for malign ant neoplasm of cervix HPV Testing [facility] Start: 1993 PAP TESTING PAP TESTING [facility] Start: 1993 Screening for malign ant neoplasm of cervix [facility] Start: 1991 Urine microalbumin profile [facility] Start: 1990 Adult BMI Follow Up Plan Adult BMI Follow Up Plan [facility] Start: 1990 ANNUAL PCP TEAM INDUSTRIAL CLEANING TECHNICIAN ALEKSANDAR DISEASE VISIT ANNUAL PCP TEAM CHRONIC DISEASE VISIT [facility] Start: 1990 ANNUAL WELLNESS VISIT ANNUAL WELLNES S VISIT [facility] Start: 1990 BP CONTROLLED (<130/80) BP CONTROLLE D (<130/80) [facility] Start: 1990 HEPATITIS C SCREENING HEPATITIS C [facility] Start: 1990 Hepatitis C screening Hepatitis C [facility] Start: 1990 HIV SCREENING HIV SCREENING [facility] Start: 1990 HIV screening HIV Screening [facility] Start: 1987 HIV screening HIV SCREENING DISCUSSION [facility] Start: 1984 Adult depression screening assessment DEPRESSION SCREENING [facility] Start: 1984 Depression screening using PHQ-9 (Patient Health Questionnaire 9) score DEPRESSION SCREENING [facility] Start: 1978 PNEUMOCOCCAL (1 - PCV) PNEUMOCOCCAL (1 - PCV) [facility] Start: 1978 Pneumococcal vaccination Pneum ococcal Vaccine (1 - PCV) [facility] Start: 1972 HEPATITIS B (1 of 3 - 3-dose series) HEPATITIS B (1 of 3 - 3-dose series) [facility] Start: 1972 Hepatitis B Vaccine (1 of 3 - 3-dose series) Hepatitis B Vaccine (1 of 3 - 3-dose series) [facility] Start: 1972 Hepatitis C screening HEPATITI S C VIRUS SCREENING [facility] Start: 1972 HPV/COTEST HPV/COTEST [facility] Start: 1972 Screening for malign ant neoplasm of cervix [facility] 12 lead ECG EKG 12 lead ECG REYNA 08/12/2023 12:28 AM [employer] [facility] Work Phone: CT Abdomen and Pelvi s W contrast IV CT Abdomen / Pelvis With IV Contrast ONLY Imaging STAT 08/12/2023 5:42 AM Inspiris Newser [facility] End: 01-12-2024 EGD - THERAPEUTIC, EUS, OR TUBE INTERVENTIONS EGD - THERAPEUTIC, EUS, OR TUBE INTERVENTIONS Endoscopy Routine Gastroparesis 1 Occurrences starting 01/11/2023 until 01/12/2024 [facility] Work Phone: Comment on above: 1 Occurrences starti ng 01/11/2023 until 01/12/2024 FAT, FECAL QUAL FAT, FECAL QUAL Lab Routine Diarrhea due to malabsorption Ordered: 03/15/2023 [facility] Work Phone: Comment on above: Ordered: 03/15/2023 End: 10-11-2023 Gi transit & pres ravinder wireless capsule w/interp CAPSULE ENDOSCOPY SMART Endoscopy Routine Gastroparesis 1 Occurrences starting 10/11/2022 until 10/11/2023 [facility] Work Phone: Comment on above: 1 Occurrences starti ng 10/11/2022 until 10/11/2023 End: 12-17-2023 PAP TITRATION PSG (CPAP, BIPAP, ASV) PAP TITRATION PSG (CPAP, BIPAP, ASV) Procedures Routine CHUCKIE (obstructive sleep apnea) 1 Occurrences starting 11/17/2022 until 12/17/2023 [facility] Work Phone: Comment on above: 1 Occurrences starti ng 11/17/2022 until 12/17/2023 Patient Education Chest Pain, Adult ED [facility] Work Phone: Patient referral [facility] Work Phone: SARS-CoV-2 (COVID-19 ) RNA [Presence] in Respiratory specimen by JOSÉ MIGUEL with probe detection SELF CHECK COVID Microbiology Routine Follow-up examination after colorectal surgery Ordered: 02/09/2022 [facility] Work Phone: Comment on above: Ordered: 02/09/2022 End: 11-30-2023 SIGMOIDOSCOPY SIGMOIDOSCOPY Endoscopy Routine Chronic idiopathic constipation 1 Occurrences starting 11/30/2022 until 11/30/2023 [facility] Work Phone: Comment on above: 1 Occurrences starti ng 11/30/2022 until 11/30/2023 SURG PATH REQUEST [facility] Comment on above: Release Upon Orderin g for 1 Occurrences starting 04/12/2024, 1 completed End: 08-12-2023 Troponin I.cardiac [Mass/volume] in Serum or Plasma Troponin I (One time) Lab Timed Once for 1 Occurrences starting 08/12/2023 until 08/12/2023 [facility] Work Phone: Comment on above: Once for 1 Occurrenc es starting 08/12/2023 until 08/12/2023 URODYNAMICS WHI URODYNAMICS WHI Procedures Routine Incomplete bladder emptying Urinary urgency Urinary frequency Nocturia Ordered: 07/31/2023 [facility] Work Phone: Comment on above: Ordered: 07/31/2023 [facility] c [facility] c [facility] c [facility] c [facility] c [facility] c [facility] c [facility] Immunizations Immunization Date Immunization Notes Care Provider [facility] 04-05-2024 zoster vaccine, unspecified formulation Milagros Franco MD, PhD Work Phone: [facility] 08-17-2022 influenza virus vaccine, unspecified formulation Nelsy Chávez APRN.NET WASHER Work Phone: [facility] 11-24-2021 Pfizer-BioNTech COVID-19 Vacc 30 MCG/0.3ML Intramuscular Suspension Eliceo Gómez Work Phone: [facility] 250 DO Work Phone: 08-19-2021 KENALOG - 10 mg [employer] Other [facility] [employer] Other 05-11-2021 Pfizer-BioNTech COVID-19 Vacc 30 MCG/0.3ML Intramuscular Suspension Eliceo Gómez [facility] Phone: [facility] Work Phone: 04-20-2021 Pfizer-BioNTech COVID-19 Vacc 30 MCG/0.3ML Intramuscular Suspension Eliceo Gómez Work Phone: [facility] 250 DO Work Phone: 09-02-2020 influenza, injectabl e, quadrivalent, preservative free Eliceo Gómez Work Phone: [facility] [employer] 250 DO Work Phone: 08-06-2020 influenza, injectabl e, quadrivalent, preservative free Eliceo Gómez Work Phone: [facility] [employer] 250 DO Work Phone: 06-22-2020 tetanus toxoid, reduced diphtheria toxoid, and acellular pertussis vaccine, adsorbed Eliceo Gómez Work Phone: [facility] [place] [facility] DO Work Phone: 02-01-2020 Toradol per [address] Other [employer] Other 07-15-2018 influenza, seasonal, injectable, preservative free Eliceo Gómez Work Phone: [facility] DO Work Phone: 07-14-2016 Rocephin 500 mg Beto Reynoso r Other [employer] Other 05-12-2008 hepatitis B vaccine, adult dosage Eliceo Gómez Work Phone: [facility] [place] ttwick DO Work Phone: 04-11-2008 hepatitis B vaccine, adult dosage Eliceo Gómez Work Phone: [facility] [place] ttwick DO Work Phone: Payers Date Payer Category Payer Self-pay [id number] 2022 Unknown 2021 Medicaid [employer] [id number] 2021-Present [phone] [address] [place] [address] Medicaid [id number]. [id number] 2021 Medicaid [id number]. 1.13.159.2.7.3. [id number] 1972 Unknown [id number] 2.16.840.1.021792.3.579.2.176 1972 Unknown [id number] 2.16.840.1.315866.3.579.2.593 1972 Unknown [id number] 2.16.840.1.161934.3.579.2.593 1972 Unknown [id number] 2.16.840.1.368902.3.579.2.593 1972 Unknown [id number] 2.16.840.1.564458.3.579.2.593 1972 Unknown [id number] 2.16.840.1.600788.3.579.2.593 1972 Unknown [id number] 2.16.840.1.845614.3.579.2.593 1972 Unknown [id number] 2.16.840.1.842908.3.579.2.593 1972 Unknown [id number] 2.16.840.1.239771.3.579.2.593 1972 Unknown [id number] 2.16.840.1.724220.3.579.2.593 1972 Unknown [id number] 2.16.840.1.778769.3.579.2.593 1972 Unknown [id number] 2.16.840.1.589267.3.579.2.593 1972 Unknown [id number] 2.16.840.1.928282.3.579.2.593 1972 Unknown [id number] 2.16.840.1.862788.3.579.2.593 1972 Unknown [id number] 2.16.840.1.076383.3.579.2.593 1972 Unknown [id number] 2.16.840.1.835413.3.579.2.593 1972 Unknown [id number] 2.16.840.1.936081.3.579.2.593 1972 Unknown [id number] 2.16.840.1.301576.3.579.2.593 1972 Unknown [id number] 2.16.840.1.546491.3.579.2.297 1972 Unknown [id number] 2.16.840.1.542276.3.579.2.297 1972 Unknown [id number] 2.16.840.1.325554.3.579.2.356 1972 Unknown [id number] 2.16.840.1.427899.3.579.2.356 1972 Unknown [id number] 2.16.840.1.168177.3.579.2.356 1972 Unknown [id number] 2.16.840.1.503113.3.579.2.1286 1972 Unknown [id number] 2.16.840.1.917681.3.579.2.1286 1972 Unknown [id number] 2.16.840.1.669946.3.579.2.1286 1972 Unknown [id number] 2.16.840.1.036062.3.579.2.1286 1972 Unknown [id number] 2.16.840.1.002137.3.579.2.1286 1972 Unknown [id number] 2.16.840.1.854850.3.579.2.1286 1972 Unknown [id number] 2.16.840.1.590345.3.579.2.1286 1972 Unknown [id number] 2.16.840.1.943132.3.579.2.1286 1972 Unknown [id number] 2.16.840.1.926549.3.579.2. 1972 Unknown [id number] 2.16.840.1.399784.3.579.2. 1972 Unknown [id number] 2.16.840.1.126313.3.579.2. 1972 Unknown [id number] 2.16840.1.173469.3.579.2. 1972 Unknown [id number] 2.16.840.1.028577.3.579.2. 1972 Unknown [id number] 2.16840.1.814506.3.579.2. 1972 Unknown [id number] 2.16840.1.404295.3.579.2.1258 1972 Unknown [id number] 2.840.1.528475.3.579.2.1258 1972 Unknown [id number] 2.16840.1.804769.3.579.2.1258 1972 Unknown [id number] 2.16840.1.117930.3.579.2.1258 1972 Unknown [id number] 2.16840.1.451708.3.579.2.1258 1972 Unknown [id number] 2.16840.1.620393.3.579.2.1258 1972 Unknown [id number] 2.16.840.1.555012.3.579.2.1258 1972 Unknown [id number] 2.16840.1.075251.3.579.2.1258 1972 Unknown [id number] 2.16840.1.082641.3.579.2.1258 1972 Unknown [id number] 2.16840.1.446193.3.579.2.1258 1972 Unknown [id number] 2.16.840.1.200830.3.579.2.9 1972 Unknown [id number] 2.16.840.1.897881.3.579.2.9 1972 Unknown [id number] 2.16.840.1.640027.3.579.2.1258 1972 Unknown [id number] 2.16.840.1.123276.3.579.2.1258 1972 Unknown [id number] 2.16.840.1.340084.3.579.2.1258 1972 Unknown [id number] 2.16.840.1.698290.3.579.2.1258 1972 Unknown [id number] 2.16.840.1.486455.3.579.2.594 1972 Unknown [id number] 2.840.1.499302.3.579.2.594 1972 Unknown [id number] 2.16.840.1.936254.3.579.2.594 1972 Unknown [id number] 2.16.840.1.934974.3.579.2.594 1972 Unknown [id number] 2.16.840.1.647611.3.579.2.594 1959 Medicaid [id number] 1959 Unknown [id number] Unknown [id number] Unknown [id number] 2.16840.1.613014.3.579.2.531 Unknown [id number] 2.16840.1.675910.3.579.2.531 Unknown [id number] 2.16840.1.964570.3.579.2.531 Social History Date Type Detail Facility Start: 10-08-2020 End: 03-06-2024 Tobacco smoking status NHIS Never smoked tobacco [facility] Start: 10-08-2020 End: 03-06-2024 Tobacco use and exposure Smokeless tobacco non-user [facility] Start: 01-04-2022 End: 04-12-2024 Alcohol intake Lifetime non-drinker (finding) [facility] Start: 10-08-2020 History SDOH Alcohol Frequency 1 [facility] Start: 1970 Sex Assigned At Female [facility] Start: 01-21-2022 End: 07-26-2022 Exposure to SARS-CoV-2 (event) Not sure [facility] Start: 10-08-2020 End: 04-12-2024 Sex Assigned At [facility] Start: 10-08-2020 End: 04-12-2024 No alcohol use No alcohol use [facility] Comment on above: 3 TEA WEEK; How often to you hav e a drink containing alcohol? Never [facility] Average Number of Drinks Not on file [facility] Start: 07-28-2020 Gender identity Identifies as female gender (finding) [facility] Start: 07-03-2021 Sexual orientation Heterosexual (fin ding) [facility] Start: 06-05-2023 End: 06-05-2023 Tobacco smoking status NHIS Smoker (finding) [facility] Start: 1970 Sex Assigned At Not on file [facility] Start: 10-23-2023 End: 01-10-2024 Alcohol intake Ex-drinker (finding) [facility] Medical Equipment Procedure Code Equipment Code Equipment Original Text Equipment Identifier Dates [place] Self-Punching Knotless 2.6mm W/No 5 Suture [id number] Start: 10-14-2020 [place] Knotless 2.6mm [id number] Start: 10-14-2020 [place] Swivelock C 4.75mm Biocomposite Peek 19.1mm Suture Closed Eyelet - [id number] Start: 10-14-2020 Sling Gynecare T vt Exact Gynecological Stress Urinary Incontinence - [id number] Start: 12-24-2021 DISC CERVICAL 13 [id number] MOBI-C FDA Start: 09-20-2017 DISC CERVICAL 13 [id number] MOBI-C FDA Start: 09-20-2017 DISC CERVICAL 13 [id number] MOBI-C FDA Start: 09-20-2017 DISC CERVICAL 13 [id number] MOBI-C FDA Start: 09-20-2017 DISC CERVICAL 13 [id number] MOBI-C FDA Start: 09-20-2017 Generator Nrstm - [id number] Start: 01-02-2024 Lead Ns Respirat ory - [id number] Start: 01-02-2024 Lead Nrstm Inspr 3 Elect Cuf Tnl Boni Strl Lf - [id number] - [id number] Start: 01-02-2024 Lead Intrstim Mr i 28cm - [id number] Start: 01-26-2024 Interstim X Rech arge Free Neurostimulator - [id number] Start: 01-26-2024 Clinical Notes 10-27-2020 to 04-28-2024 Nursing Notes - Stacie Johns RN - 04/12/2024 12:45 PM EDTNursing Notes - Stacie Johns RN - 04/12/2024 12:45 PM EDTNursing Notes - Stacie Johns RN - 04/12/2024 12:41 PM EDTAttachments Note Date & Type Note Facility 04-28-2024 Note [place] [facility] Please rate the following as to how likely the patient would be to dose off or fall asleep for each of the situations Never = 0 Slight chance = 1 Moderate Chance = 2 High Chance = 3 Sitting and Reading... 1 Watching TV...2 Sitting inactive in a public place (theater, meeting) ...0 As a passenger in a car for an hour without a break... 1 Lying down in the afternoon to rest...2 Sitting and talking to someone... 1 Sitting quietly after lunch (without alcohol)... 2 In a car, while stopped for a few minutes in traffic... 0 Total score...9 Please check the symptoms/complaints of the patient Please answer (Y)es or (N)o Snoring/Loud Snoring... Witnessed Apneas... Excessive daytime sleepiness... Waking gasping/choking... Morning Headaches... Complaints of restless legs... Wakes with sour taste... Difficulty following directions... Confusion/Forgetfulness... Sleep walking/talks in your sleep... Grinds teeth... Difficulty staying asleep ... Difficulty initiating sleep... Acting out your dreams... Difficulty ambulating... Incontinence... Subjective yes Objective No data found. Physical Exam Lab Results Component Value Date NA 139 05/31/2023 K 4.6 05/31/2023 CL 105 05/31/2023 ANIONGAP 12 05/31/2023 BUN 16 05/31/2023 CREATININE 0.75 05/31/2023 CALCIUM 9.8 05/31/2023 No results found for: BILITOT , BILIDIR , ALKPHOS , AST , ALT , PROT , ALBUMIN Lab Results Component Value Date WBC 6.39 05/31/2023 RBC 4.52 05/31/2023 HGB 12.2 05/31/2023 HCT 37.9 05/31/2023 MCV 83.8 05/31/2023 MCH 27.0 05/31/2023 MCHC 32.2 05/31/2023 RDW 12.7 05/31/2023 NEUTOPHILPCT 60.0 05/31/2023 LYMPHOPCT 31.9 05/31/2023 MONOPCT 5.5 05/31/2023 EOSPCT 1.4 05/31/2023 BASOPCT 0.9 05/31/2023 NEUTROABS 3.83 05/31/2023 LYMPHSABS 2.04 05/31/2023 MONOSABS 0.35 05/31/2023 EOSABS 0.09 05/31/2023 BASOSABS 0.06 05/31/2023 PLT 485 (H) 05/31/2023 NRBC 0.0 05/31/2023 No results found for this or any previous visit from the past 1 day. Nutrition Screen Assessment/Plan Active Problems: There are no active Hospital Problems. no [facility] 04-17-2024 Note Attestation signed by Grant Biwsas, PhD at 04/18/2024 10:57 AM I have read and agree with the datapower consultant's documentation and treatment summary. Please note there may be additional personal documentation. Discharge Note Type of discharge: Patient stopped coming to treatment Date of admission: No linked episodes Date of last service: 05/22/2023 Results of service: Not rated Reason for discharge: Never returned for service and Provider of care left organization Diagnoses of Major depressive disorder, recurrent, moderate (CMS/HCC) and JOLEEN (generalized anxiety disorder) were pertinent to this visit. Summary of relevant biopsychosocial status at transfer or discharge: Patient at minimal risk for relapse as evidenced by him/her having a healthy sober support system, maintaining sobriety/recovery lifestyle and engaging in mental health treatment/taking medications as prescribed Summary of care and progress made toward goals: Multiple attempts were made to contact this patient, Patient is to schedule an assessment if he/she would like to reengage inservices, and Patient was informed and agreed to the rules and expectations of the program,including awareness of multiple absences leading to unsuccessful discharge There are no recently modified care plans to display for this patient. Evidence that the individual was involved in the decision (if applicable): N/A - pt stopped coming to treatment Evidence individual was told in a timely manner: N/A - pt stopped coming to treatment Information on available community resources to meet their needs: Yes Discharge instructions are written in terms the patient can understand: Yes Radha Castrejon, PhD (electronically signed on 04/17/2024 at 8:49 AM) [facility] 04-12-2024 Nurse Note Dilated LES to 20mm with balloon, held for [address] Franco [facility] 04-12-2024 Miscellaneous Notes Dilated LES to 20mm with balloon, held for [address] Franco Dilated pylorus to 20mm with balloon, held for [address] Franco. Sedation, vital signs, airway, and monitoring per anesthesia. documented in this encounter [facility] 04-12-2024 Nurse Note Dilated pylorus to 20mm with balloon, held for [address] Franco. [facility] 04-12-2024 History and physical note ENDOSCOPIC PREPROCEDURE HISTORY AND PHYSICAL HISTORY OF PRESENT ILLNESS: Mary Leal is a 53 y.o. female seen in the pre-procedure area at [facility]. The indication for endoscopic evaluation includes: Cass grade D esophagitis Early satiety Unintentional weight loss Gastroparesis PAST MEDICAL HISTORY: Past Medical History: Diagnosis Date Arthritis Asthma Constipation Depression Essential hypertension, benign Gastroparesis GERD (gastroesophageal reflux disease) H/O colectomy Migraine SURGICAL HISTORY: Past Surgical History: Procedure Laterality Date BLADDER SUSPENSION COLECTOMY HYSTERECTOMY MEDICATIONS: Current Outpatient Medications Medication Instructions Abilify Maintena 300 MG Prefilled Syringe IM injection inject INTRAMUSCULARLY ONCE A MONTH (BRING TO OFFICE FOR PROVIDER TO ADMINISTER) Ajovy 225 MG/1.5ML Solution Auto-injector inject 1 AND 1/2 milliliters subcutaneously every 28 DAYS Atenolol 25 MG tablet 1 tablet, Oral, DAILY WITH DINNER Cetirizine (ZYRTEC) 10 mg, Oral, DAILY ferrous sulfate 325 mg, Oral, EVERY OTHER DAY lamoTRIgine (LAMICTAL) 25 mg, Oral, DAILY omeprazole (PRILOSEC) 40 mg, Oral, DAILY pregabalin (LYRICA) 50 mg, Oral, 3 TIMES DAILY Quviviq 50 mg, Oral, NOCTURNAL rOPINIRole (REQUIP) 1 mg, Oral, DAILY EVERY MORNING rOPINIRole (REQUIP) 2 mg, Oral, DAILY AT BEDTIME Trelegy Ellipta 100-62.5-25 MCG/ACT Aerosol Powder, breath activated inhaler Inhalation for 30 Days Vitamin D3 (VITAMIN D3) 5,000 Units, Oral, DAILY Vyvanse 70 mg, Oral, DAILY WITH DINNER Current Outpatient Medications: Abilify Maintena 300 MG Prefilled Syringe IM injection, inject INTRAMUSCULARLY ONCE A MONTH (BRING TO OFFICE FOR PROVIDER TO ADMINISTER), Disp: , Rfl: Ajovy 225 MG/1.5ML Solution Auto-injector, inject 1 AND 1/2 milliliters subcutaneously every 28 DAYS, Disp: , Rfl: Atenolol 25 MG tablet, Take 1 tablet by mouth Daily (with dinner)., Disp: , Rfl: Cetirizine 10 MG tablet, Take 1 tablet by mouth daily., Disp: , Rfl: ferrous sulfate 325 (65 Fe) MG tablet, Take 1 tablet by mouth every other day., Disp: 50 tablet, Rfl: 3 lamoTRIgine 25 MG tablet, Take 1 tablet by mouth daily., Disp: , Rfl: omeprazole [address] capsule, Take 1 capsule by mouth daily., Disp: 90 capsule, Rfl: 2 Quviviq 50 MG tablet, Take 50 mg by mouth Every night., Disp: , Rfl: rOPINIRole 1 MG tablet, Take 1 tablet by mouth daily every morning., Disp: , Rfl: rOPINIRole 2 MG tablet, Take 1 tablet by mouth at bedtime., Disp: , Rfl: Trelegy Ellipta 100-62.5-25 MCG/ACT Aerosol Powder, breath activated inhaler, Inhalation for 30 Days, Disp: , Rfl: Vitamin D3 125 MCG (5000 UT) per tablet, Take 1 tablet by mouth daily., Disp: 90 tablet, Rfl: 3 Vyvanse 50 MG capsule, Take 70 mg by mouth Daily (with dinner)., Disp: , Rfl: pregabalin 25 MG capsule, Take 2 capsules by mouth 3 times daily., Disp: , Rfl: Current Facility-Administered Medications: benzocaine 20 % HURRICAINE 1 Application, 1 Application, Mouth/Throat, As directed PRN, Milagros Franco MD, PhD fentaNYL (SUBLIMAZE) injection 100 mcg, 100 mcg, Intravenous, As directed PRN, Milagros Franco MD, PhD Flumazenil (ROMAZICON) injection 0.5 mg, 0.5 mg, Intravenous, As directed PRN, Milagros Franco MD, PhD Lactated ringers IV solution, , Intravenous, Continuous, Milagros Franco MD, PhD, Last Rate: 20 mL/hr at 04/12/24 1150, New Bag at 04/12/24 1150 lidocaine 1% buffered in sodium bicarbonate 1-8.4 % injection SOSY 1 mL, 1 mL, Intradermal, PRN, Milagros Franco MD, PhD midazolam (VERSED) injection 10 mg, 10 mg, Intravenous, As directed PRN, Milagros Franco MD, PhD Naloxone (NARCAN) injection 0.4 mg, 0.4 mg, Intravenous, As directed PRN, Milagros Franco MD, PhD simethicone in sterile water 40 mg/1000 mL irrigation 1 Application, 1 Application, Irrigation, As directed PRN, Milagros Franco MD, PhD simethicone undiluted 40 mg/0.6 mL irrigation 1 Application, 1 Application, Irrigation, As directed PRN, Milagros Franco MD, PhD ALLERGIES: Allergies Allergen Reactions Risperidone Other Reaction(s): breast discharge FOCUSED REVIEW OF SYSTEMS: Negative except for DYSPHAGIA VITAL SIGNS: Vitals: 04/12/24 1135 BP: 119/73 Pulse: 63 Resp: 15 Temp: 97.9 degrees F (36.6 degrees C) TempSrc: Infrared SpO2: 100% Weight: 68 kg (150 lb) Height: 1.626 m (5' 4 ) PREPROCEDURE PHYSICAL EXAM: AIRWAY: normal, Mallampati: Class I (complete visualization of the soft palate) HEART: Regular and No murmur PULMONARY: Lungs clear to auscultation bilaterally ABDOMEN: Soft, nontender, nondistended ASSESSMENT: Mary Leal is a 53 y.o. female is ready for the planned procedure. ASA Class: ASA 2 - Patient with mild systemic disease with no functional limitations PLAN: Will plan to proceed with DIAGNOSTIC UPPER ENDOSCOPY using Monitored Anesthesia Care. Milagros Franco MD, PhD [facility] Work Phone: 04-12-2024 History and physical note ENDOSCOPIC PREPROCEDURE HISTORY AND PHYSICAL HISTORY OF PRESENT ILLNESS: Mary Leal is a 53 y.o. female seen in the pre-procedure area at [facility]. The indication for endoscopic evaluation includes: Cass grade D esophagitis Early satiety Unintentional weight loss Gastroparesis PAST MEDICAL HISTORY: Past Medical History: Diagnosis Date Arthritis Asthma Constipation Depression Essential hypertension, benign Gastroparesis GERD (gastroesophageal reflux disease) H/O colectomy Migraine SURGICAL HISTORY: Past Surgical History: Procedure Laterality Date BLADDER SUSPENSION COLECTOMY HYSTERECTOMY MEDICATIONS: Current Outpatient Medications Medication Instructions Abilify Maintena 300 MG Prefilled Syringe IM injection inject INTRAMUSCULARLY ONCE A MONTH (BRING TO OFFICE FOR PROVIDER TO ADMINISTER) Ajovy 225 MG/1.5ML Solution Auto-injector inject 1 AND 1/2 milliliters subcutaneously every 28 DAYS Atenolol 25 MG tablet 1 tablet, Oral, DAILY WITH DINNER Cetirizine (ZYRTEC) 10 mg, Oral, DAILY ferrous sulfate 325 mg, Oral, EVERY OTHER DAY lamoTRIgine (LAMICTAL) 25 mg, Oral, DAILY omeprazole (PRILOSEC) 40 mg, Oral, DAILY pregabalin (LYRICA) 50 mg, Oral, 3 TIMES DAILY Quviviq 50 mg, Oral, NOCTURNAL rOPINIRole (REQUIP) 1 mg, Oral, DAILY EVERY MORNING rOPINIRole (REQUIP) 2 mg, Oral, DAILY AT BEDTIME Trelegy Ellipta 100-62.5-25 MCG/ACT Aerosol Powder, breath activated inhaler Inhalation for 30 Days Vitamin D3 (VITAMIN D3) 5,000 Units, Oral, DAILY Vyvanse 70 mg, Oral, DAILY WITH DINNER Current Outpatient Medications: Abilify Maintena 300 MG Prefilled Syringe IM injection, inject INTRAMUSCULARLY ONCE A MONTH (BRING TO OFFICE FOR PROVIDER TO ADMINISTER), Disp: , Rfl: Ajovy 225 MG/1.5ML Solution Auto-injector, inject 1 AND 1/2 milliliters subcutaneously every 28 DAYS, Disp: , Rfl: Atenolol 25 MG tablet, Take 1 tablet by mouth Daily (with dinner)., Disp: , Rfl: Cetirizine 10 MG tablet, Take 1 tablet by mouth daily., Disp: , Rfl: ferrous sulfate 325 (65 Fe) MG tablet, Take 1 tablet by mouth every other day., Disp: 50 tablet, Rfl: 3 lamoTRIgine 25 MG tablet, Take 1 tablet by mouth daily., Disp: , Rfl: omeprazole [address] capsule, Take 1 capsule by mouth daily., Disp: 90 capsule, Rfl: 2 Quviviq 50 MG tablet, Take 50 mg by mouth Every night., Disp: , Rfl: rOPINIRole 1 MG tablet, Take 1 tablet by mouth daily every morning., Disp: , Rfl: rOPINIRole 2 MG tablet, Take 1 tablet by mouth at bedtime., Disp: , Rfl: Trelegy Ellipta 100-62.5-25 MCG/ACT Aerosol Powder, breath activated inhaler, Inhalation for 30 Days, Disp: , Rfl: Vitamin D3 125 MCG (5000 UT) per tablet, Take 1 tablet by mouth daily., Disp: 90 tablet, Rfl: 3 Vyvanse 50 MG capsule, Take 70 mg by mouth Daily (with dinner)., Disp: , Rfl: pregabalin 25 MG capsule, Take 2 capsules by mouth 3 times daily., Disp: , Rfl: Current Facility-Administered Medications: benzocaine 20 % HURRICAINE 1 Application, 1 Application, Mouth/Throat, As directed PRN, Milagros Franco MD, PhD fentaNYL (SUBLIMAZE) injection 100 mcg, 100 mcg, Intravenous, As directed PRN, Milagros Franco MD, PhD Flumazenil (ROMAZICON) injection 0.5 mg, 0.5 mg, Intravenous, As directed PRN, Milagros Franco MD, PhD Lactated ringers IV solution, , Intravenous, Continuous, Milagros Franco MD, PhD, Last Rate: 20 mL/hr at 04/12/24 1150, New Bag at 04/12/24 1150 lidocaine 1% buffered in sodium bicarbonate 1-8.4 % injection SOSY 1 mL, 1 mL, Intradermal, PRN, Milagros Franco MD, PhD midazolam (VERSED) injection 10 mg, 10 mg, Intravenous, As directed PRN, Milagros Franco MD, PhD Naloxone (NARCAN) injection 0.4 mg, 0.4 mg, Intravenous, As directed PRN, Milagros Franco MD, PhD simethicone in sterile water 40 mg/1000 mL irrigation 1 Application, 1 Application, Irrigation, As directed PRN, Milagros Franco MD, PhD simethicone undiluted 40 mg/0.6 mL irrigation 1 Application, 1 Application, Irrigation, As directed PRN, Milagros Franco MD, PhD ALLERGIES: Allergies Allergen Reactions Risperidone Other Reaction(s): breast discharge FOCUSED REVIEW OF SYSTEMS: Negative except for DYSPHAGIA VITAL SIGNS: Vitals: 04/12/24 1135 BP: 119/73 Pulse: 63 Resp: 15 Temp: 97.9 degrees F (36.6 degrees C) TempSrc: Infrared SpO2: 100% Weight: 68 kg (150 lb) Height: 1.626 m (5' 4 ) PREPROCEDURE PHYSICAL EXAM: AIRWAY: normal, Mallampati: Class I (complete visualization of the soft palate) HEART: Regular and No murmur PULMONARY: Lungs clear to auscultation bilaterally ABDOMEN: Soft, nontender, nondistended ASSESSMENT: Mary Leal is a 53 y.o. female is ready for the planned procedure. ASA Class: ASA 2 - Patient with mild systemic disease with no functional limitations PLAN: Will plan to proceed with DIAGNOSTIC UPPER ENDOSCOPY using Monitored Anesthesia Care. Milagros Franco MD, PhD documented in this encounter [facility] 04-12-2024 Nurse Note 1316- Family/power screwdriver operator arrived to recovery bay. RN provided and reviewed discharge instructions to patient and daughter. Verbalized understanding. All questions answered. 1326- Patient ambulated off ASC unit independently with power screwdriver operator. documented in this encounter [facility] 04-12-2024 Nurse Surgical operation note 1316- Family/power screwdriver operator arrived to recovery bay. RN provided and reviewed discharge instructions to patient and daughter. Verbalized understanding. All questions answered. 1326- Patient ambulated off ASC unit independently with power screwdriver operator. [facility] Nurse Note Sedation, vital signs, airway, and monitoring per anesthesia. [facility] 04-03-2024 Note Attestation signed by Pauline Christensen MD at 04/03/2024 4:16 PM I personally saw and examined the patient on the same date of service as resident/fellow Dr. Dumont. I discussed the findings and therapeutic plan with the resident/fellow . I agree with the documentation, except for any edits/updates below. Teaching Physician's Revisions: None Pauline Christensen MD. Fire Tower Keeper of Neurology and Sleep Medicine [facility] SLEEP/NEUROLOGY CLINIC FOLLOW-UP EVALUATION Date of Evaluation: 04/03/24 Referring Physician: Dr Eliceo Gómez MD Chief Complaints: Trouble sleeping, Trouble falling asleep, Trouble staying asleep, headaches, restless leg syndrome History of Presenting Illness and Interval History: CHUCKIE: Mary Leal is a 53 y.o. woman presenting to clinic for a follow-up visit. She was last seen in the neurology clinic on 02/07/2024 During that visit, the patient was recovering well after Inspire implantation with no issues, wounds were healing well, the device was activated and set at 0.6 V (range = 0.5-1.5V), with instruction to increase it 0.1 V every week. We also resumed same dose of ropinirole 1 mg Am and 2 mg AP without changes for RLS, she was also maintained on Ajovu injections and Nurtec PRN as well as Daridorexant 50 mg for Migraine and insomnia, respectively. Today, the patient reported that she is feeling much better, she mentioned that (her condition turned 180 degrees with Inspire), she was supposed to go up on the titration by 0.1 V every week, however she was having speech difficulty/ dysarthria after going up to 0.7 V, for which the patient went back to 0.6. She denied other issues with the new device, her sleep seems to be better, she sleeps up to 9 hours every night She feels better and having more energy when she wakes up in the morning Insomnia: She is still taking Quiviviq 50 mg at night, which [...] concerning for dopamine dysregulation syndrome. Migraine Headaches: Patient is still having headache and neck pain, she believes that her headache is better controlled with Ajovy, she is also seeing a pain medicine clinic for treatment of her headache and neck pain, she is getting local injections. Patient did not use Nurtec during the last month. Background history: Sleep Problems: She reports sleep [...] regarding sleep. She eventually was evaluated at [facility] with Dr. Sherman and had sleep study [...] most effective; however, she would like to avoid this medication given his controlled substance. On one of the past visits we referred her to (more content not included)... [facility] 03-14-2024 Telephone encounter Note 02/27/24 OV with [facility]: ASSESSMENT: Mary Leal is a 53 year old female who is post-op; stable and doing well post-operative course uncomplicated PLAN: May resume normal activities. Operative findings reviewed, no pathology. For OAB: She notes 65% improvement s/p Interstim. Continue Interstim at current settings. For vaginal burning/ irritation: -Send vaginal pathogens swab. She s/p multiple doses of Diflucan and Monistat for suspected yeast vaginitis. No evidence of infection on exam. Tissue appears atrophic. Suspect vaginal atrophy as the cause. Start Estrace as below, discussed R/B/A and application instructions. Called Pt. Patient identified by name and . Pt states estrogen cream was a great help for her symptoms. Now they are coming back. Advised her I can forward her message to see if vaginal estrogen can be reordered so she can fill the Rx as she can't fill her refill for 8 more days. Advised her that I cannot speak to how insurance will cover this and Pt states she would like reorder of possible. Pharmacy verified and order pended. OK to send Pt message that Rx has been sent. Jacquelin Lowery RN [facility] 03-14-2024 Miscellaneous Notes 02/27/24 OV with Orquidea: ASSESSMENT: Mary Leal is a 53 year old female who is post-op; stable and doing well post-operative course uncomplicated PLAN: May resume normal activities. Operative findings reviewed, no pathology. For OAB: She notes 65% improvement s/p Interstim. Continue Interstim at current settings. For vaginal burning/ irritation: -Send vaginal pathogens swab. She s/p multiple doses of Diflucan and Monistat for suspected yeast vaginitis. No evidence of infection on exam. Tissue appears atrophic. Suspect vaginal atrophy as the cause. Start Estrace as below, discussed R/B/A and application instructions. Called Pt. Patient identified by name and . Pt states estrogen cream was a great help for her symptoms. Now they are coming back. Advised her I can forward her message to see if vaginal estrogen can be reordered so she can fill the Rx as she can't fill her refill for 8 more days. Advised her that I cannot speak to how insurance will cover this and Pt states she would like reorder of possible. Pharmacy verified and order pended. OK to send Pt message that Rx has been sent. Jacquelin Lowery RN documented in this encounter [facility] 02-27-2024 Note HNO ID: [id number] Author: FLOWER LOPEZ APRN.NET WASHER Service: ? Author Type: Nurse Practitioner Type: Progress Notes Filed: 02/27/2024 10:40 Note Text: Female Pelvic Medicine AND Reconstructive Surgery Post-Op Visit Mary Leal is a 53 year old female who presents for a 6 Week post-op check s/p Interstim Stage 1 and 2 Intraoperative advanced programming, fluoroscopy. History since surgery: Urinary symptoms are better: She estimates that her symptoms are 65% improved with Interstim. Frequency improved. Now getting up only once at night to void. Daytime frequency much improved. Still has feeling of incomplete emptying/ rentention intermittently- somewhat improved. She has worked with [employer] rep re: interstim setting, now on program 5 at 2.0 and this is working well. First program felt like it was shocking her, that has resolved with program change. She states she had a yeast infection post op, took 3 Diflucan and Also tried OTC monistat ointment. Still having Burning after urination and after sex. Slight amt discharge She used vaginal estrogen suppositories in remote past, not currently. Post-op complications: yes, burning during urination and after intercourse Bleeding: no Pain: no If you had pain related to your prolapse before surgery, has your pain resolved? n/a Abnormal vaginal discharge: yes light yellow discharge Pathology: n/a PFDI-20 Do you: Usually experience pressure in the lower abdomen? No (0) Usually experience heaviness or dullness in the pelvic area? No (0) Usually have a bulge or something falling out that you can see or feel in your vaginal area? No (0) Ever have to push on the vagina or around the rectum to have or complete a bowel movement? No (0) Usually experience a feeling of incomplete bladder emptying? Yes, somewhat bothersome (2) Ever have to push up on a [...] your control if your stool is loose? Yes, somewhat bothersome (2) Usually lose gas from the rectum beyond your control? No (0) Usually have pain when you pass your stool? No (0) Experience a strong sense of urgency and have to machuca to the bathroom to have a bowel movement? Yes, somewhat bothersome (2) Does part of your bowel ever pass through the rectum and bulge outside during or after a bowel movement? Yes, not at all bothersome (1) Usually experience frequent urination? No (0) Usually experience urine leakage associated with a feeling of urgency, that is, a strong sensation of needing to go to the bathroom? No (0) Usually experience urine leakage related to coughing, sneezing or laughing? No (0) Usually experience small amounts of urine leakage (that is, drops)? No (0) Usually experience difficulty emptying your bladder? Yes, somewhat bothersome (2) Usually experience pain or discomfort in the lower abdomen or genital region? Yes, somewhat bothersome (2) Overall, how satisfied were you with your postoperative pain medication? Satisfied With regard to your expectations before surgery, did you have the amount of pain you expected, more pain, or less pain? About the amount of pain I expected Was the preoperative teaching you had about pain expectations helpful? Yes Were the discharge instructions you received about pain medications helpful? Yes Quality Analyst/Technical Writer offered:Patient declines OBJECTIVE: BP 146/93 Pulse 62 Ht 5' 4 (1.63m) Wt 154 lb 1.6 oz (69.9kg) BMI 26.44 kg/(m2). General: Well appearing, alert, in no acute distress, well-hydrated, well nourished. Abdomen: Abdomen soft, non-tender Buttocks: incisions are well healed, interstim site nontender Pelvic: Ext. Genitalia, No lesions or other abnormalities Vagina: WNL, Epithelium atrophic , and no abnormal discharge or bleeding Urethra: Normal Bimanual: No tenderness, No masses Rectovaginal: Deferred PVR: 5 ml via bladder scan done by [facility] URINE POC GLUCOSE UA (POCT) Negative 02/27/2024 BILIRUBIN UA (POCT) Negative 02/27/2024 KETONE UA (POCT) Negative 02/27/2024 SPECIFIC GRAVITY UA (POCT) >=1.030 02/27/2024 HEMOGLOBIN/BLOOD UA (POCT) Negative 02/27/2024 PH UA (POCT) 5.5 02/27/2024 PROTEIN UA (POCT) Negative 02/27/2024 UROBILINOGEN UA (POCT) 0.2 02/27/2024 NITRITE UA (POCT) Negative 02/27/2024 LEUKOCYTES UA (POCT) Negative 02/27/2024 COLOR UA (POCT) Yellow 02/27/2024 CLARITY UA (POCT) Clear 02/27/2024 ASSESSMENT: Mary Leal is a 53 year old female who is post-op; stable and doing well post-operative course uncomplicated PLAN: May resume normal activities. Operative findings reviewed, no pathology. For OAB: She notes 65% improvement s/p (more content not included)... [facility] 02-27-2024 History of Present illness Narrative Female Pelvic Medicine & Reconstructive Surgery Post-Op Visit Mary Leal is a 53 year old female who presents for a 6 Week post-op check s/p Interstim Stage 1 and 2 Intraoperative advanced programming, fluoroscopy. History since surgery: Urinary symptoms are better: She estimates that her symptoms are 65% improved with Interstim. Frequency improved. Now getting up only once at night to void. Daytime frequency much improved. Still has feeling of incomplete emptying/ rentention intermittently- somewhat improved. She has worked with [employer] rep re: interstim setting, now on program 5 at 2.0 and this is working well. First program felt like it was shocking her, that has resolved with program change. She states she had a yeast infection post op, took 3 Diflucan and Also tried OTC monistat ointment. Still having Burning after urination and after sex. Slight amt discharge She used vaginal estrogen suppositories in remote past, not currently. Post-op complications: yes, burning during urination and after intercourse Bleeding: no Pain: no If you had pain related to your prolapse before surgery, has your pain resolved? n/a Abnormal vaginal discharge: yes light yellow discharge Pathology: n/a PFDI-20 Do you: Usually experience pressure in the lower abdomen? No (0) Usually experience heaviness or dullness in the pelvic area? No (0) Usually have a bulge or something falling out that you can see or feel in your vaginal area? No (0) Ever have to push on the vagina or around the rectum to have or complete a bowel movement? No (0) Usually experience a feeling of incomplete bladder emptying? Yes, somewhat bothersome (2) Ever have to push up on a [...] your control if your stool is loose? Yes, somewhat bothersome (2) Usually lose gas from the rectum beyond your control? No (0) Usually have pain when you pass your stool? No (0) Experience a strong sense of urgency and have to machuca to the bathroom to have a bowel movement? Yes, somewhat bothersome (2) Does part of your bowel ever pass through the rectum and bulge outside during or after a bowel movement? Yes, not at all bothersome (1) Usually experience frequent urination? No (0) Usually experience urine leakage associated with a feeling of urgency, that is, a strong sensation of needing to go to the bathroom? No (0) Usually experience urine leakage related to coughing, sneezing or laughing? No (0) Usually experience small amounts of urine leakage (that is, drops)? No (0) Usually experience difficulty emptying your bladder? Yes, somewhat bothersome (2) Usually experience pain or discomfort in the lower abdomen or genital region? Yes, somewhat bothersome (2) Overall, how satisfied were you with your postoperative pain medication? Satisfied With regard to your expectations before surgery, did you have the amount of pain you expected, more pain, or less pain? About the amount of pain I expected Was the preoperative teaching you had about pain expectations helpful? Yes Were the discharge instructions you received about pain medications helpful? Yes Quality Analyst/Technical Writer offered:Patient declines OBJECTIVE: BP 146/93 Pulse 62 Ht 5' 4 (1.63m) Wt 154 lb 1.6 oz (69.9kg) BMI 26.44 kg/(m^2). General: Well appearing, alert, in no acute distress, well-hydrated, well nourished. Abdomen: Abdomen soft, non-tender Buttocks: incisions are well healed, interstim site nontender Pelvic: Ext. Genitalia, No lesions or other abnormalities Vagina: WNL, Epithelium atrophic , and no abnormal discharge or bleeding Urethra: Normal Bimanual: No tenderness, No masses Rectovaginal: Deferred PVR: 5 ml via bladder scan done by [facility] URINE POC GLUCOSE UA (POCT) Negative 02/27/2024 BILIRUBIN UA (POCT) Negative 02/27/2024 KETONE UA (POCT) Negative 02/27/2024 SPECIFIC GRAVITY UA (POCT) >=1.030 02/27/2024 HEMOGLOBIN/BLOOD UA (POCT) Negative 02/27/2024 PH UA (POCT) 5.5 02/27/2024 PROTEIN UA (POCT) Negative 02/27/2024 UROBILINOGEN UA (POCT) 0.2 02/27/2024 NITRITE UA (POCT) Negative 02/27/2024 LEUKOCYTES UA (POCT) Negative 02/27/2024 COLOR UA (POCT) Yellow 02/27/2024 CLARITY UA (POCT) Clear 02/27/2024 ASSESSMENT: Mary Leal is a 53 year old female who is post-op; stable and doing well post-operative course uncomplicated PLAN: May resume normal activities. Operative findings reviewed, no pathology. For OAB: She notes 65% improvement s/p Interstim. Continue Interstim at current settings. For vaginal burning/ irritation: -Send vaginal pathogens swab. She s/p multiple doses of Diflucan and Monistat for suspected yeast vaginitis. No evidence of infection on exam. Tissue appears atrophic. Suspect vaginal atrophy as the cause. Start Estrace as below, discussed R/B/A and application instructions. The following approved medication requests have been transmitted electronically. Requested Prescriptions Signed Prescriptions Disp Refills estradiol (ESTRACE) 0.01 % (0.1 mg/gram) vaginal cream 42.5 g 3 Sig: Use 1 gram vaginally nightly x 2 weeks then twice per weel Follow up 6 months or sooner if needed. Patient expressed understanding. Flower Lopez APRN.CNP documented in this encounter [facility] 02-20-2024 Miscellaneous Notes Pt sent mc message [...] 2024 7:32 AM documented in this encounter [facility] 02-11-2024 Note HNO ID: [id number] Author: LISSA DOYLE APRN.CNP Service: ? Author Type: Nurse Practitioner Type: Progress Notes Filed: 02/11/2024 15:16 Note Text: Visit cancelled. Patient checked into express care online system for My ongoing yeast infection. I've tried 3 Diflucan. . Connected to visit, advised PCP or local Express[facility]Urgent Care in person evaluation. Patient verbalized understanding and comfortable with plan. Nontoxic appearance. Lissa Doyle APRN.CNP [facility] 02-11-2024 History of Present illness Narrative Visit cancelled. Patient checked into express care online system for My ongoing yeast infection. I've tried 3 Diflucan. . Connected to visit, advised PCP or local Express[facility]Urgent Care in person evaluation. Patient verbalized understanding and comfortable with plan. Nontoxic appearance. Lissa Doyle APRN.CNP documented in this encounter [facility] 02-07-2024 Note SLEEP/NEUROLOGY CLIN IC FOLLOW-UP [...] a second opinion from sleep medicine at [facility], and saw Dr. Yoni Tuttle on [...] regarding sleep. She eventually was evaluated at [facility] with Dr. Sherman and had [...] like to av (more content not included)... 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 Informed patient [facility] can [facility]. Will send telephone encounter to [...] Discussed with Dr. Mullins, Urogyn fellow physician fishery division chief. Radha Dunham MD Obstetrics and Gynecology, PGY1 documented in this encounter [facility] 03-21-2024 History and physical note PREANESTHESIA CONSULT CLINIC TELEHEALTH VISIT SERVICE DATE: 01/25/2024 SERVICE TIME: 9:02 AM Patient has been identified by name and date of : Yes Reason for contact: PACC visit Accompanied by: Self This is a virtual visit using [employer] Video Visit. It required patient-provider interaction for the medical decision making as documented below. I have communicated my name and active licensure. The patient's identity and physical location were verified at the time of this visit. Either the patient or their legal credit and collections representative has been informed of the risks [...] using inspire to get activated 02/07/2024 ) [id number] Score: Age: <65 Sex: female CHF history: No Hypertension history: Yes Stroke/TIA/thromboembolism history: No Vascular disease history: No Diabetes history: No [id number] Score: 2 ANESTHESIA FINDINGS: Intubation History: No [...] the AM and 2 mg PM Yes elbrxrpewzy-cskhslccr-jkoozkfn (TRELEGY ELLIPTA) 100-62.5-25 mcg Inhale 1 Puff as instructed once daily. Yes No medication comments found. ALLERGIES Allergen Reactions Risperidone Intolerance Breast discharge Poison Brenda Extract Rash Covid Immunization Dates Overdue - Covid-19 Vaccine (4 - 2023-24 season) Overdue since 07/07/2023 11/24/2021 Imm Admin: COVID-19 [...] fevers. Neuro: No history of TIA's, stroke, WOUND/OSTOMY NURSE tumor, impaired sensorium, hemiplegia, paraplegia or quadraplegia. No neurological symptoms or problems. Respiratory: CHUCKIE and asthma Negative for Bronchitis, COPD, Pneumonia within 6 weeks (date), URI < 2 weeks Negative for cough, wheezing or shortness of breath. Negative for hemoptysis. Cardiovascular: HTN Negative for Recent NV, CAD, CHF Negative for chest pain, orthopnea, [...] TIME: 9:02 AM documented in this encounter [facility] 01-23-2024 Instructions Max Marroquin PA-C - 01/23/2024 3:50 PM EDT PATIENT PREOPERATIVE INSTRUCTIONS Pam Wang MD has scheduled you for your procedure at this surgery center: [facility] [place] [facility] Scheduling Office: [phone] --[address] [place] [address]. Arrival Time for Surgery: - To obtain your arrival time for surgery, call your physician's office the day before your surgery. - If your surgery is scheduled for Monday, call the Monday before. Your surgeon s tower supervisor will tell you what time to call the office. - If you have not reached the departmental tower supervisor by 5 P.M., call [phone] after 5 P.M. the day before your [...] Procedures: - YOU MUST HAVE A RESPONSIBLE STAFF DEVELOPMENT EDUCATOR TAKE YOU HOME. A METAL BUMPER OR FIBER WORKER CANNOT BE MADE A RESPONSIBLE STAFF DEVELOPMENT EDUCATOR. - We recommend that a responsible person stays with you overnight to take care of you. - You cannot stay in a hotel alone after outpatient surgery. You will not be permitted to have your surgery, if you do not have someone to take care of you. If you already have an Advance Directive, please fax a copy to [phone] or email to for it to be [...] Max Marroquin PA-C documented in this encounter [facility] 01-22-2024 Note HNO ID: [id number] Author: LEV THOMPSON LPN Service: ? Author Type: LICENSED NURSE Type: Progress Notes Filed: 01/25/2024 09:48 Note Text: DATE OF SERVICE: 01/25/2024 PROBLEM: Mary Leal presents for pre-op teaching. PRE-OP DIAGNOSIS: urinary urgency SCHEDULED SURGERY AND DATE: 01-26-24 [facility] INSRT NSTIM GENERATOR BLADDER W/ POCKET CREATE [...] patient have an advanced directive: No Does [facility] have a copy of the patient's [...] prescribed by anesthesia, internal medicine, surgeon, or UTILITY WORKER [employer] Stop NSAIDs, Aspirin (ASA), vitamins, herbal supplements, [...] jewelry, body piercing, makeup, contacts, lotions, nail papua new guinean on fingers, or anything in hair on arrival to surgery Wear low healed shoes and loose fitting clothing Leave all valuables at home or with a family member Directions to [facility] Parking/parking validation on the day prior [...] if after hours patient instructed to call boiler room operator and ask for fishery division chief engineering officer resident. DENISA program offered to patient: Yes Additional teaching as indicated by patient/family learning needs. PATIENT LEARNING EVALUATION AND FOLLOW UP PLAN: Patient and/or family express understanding of upcoming surgery, pre-operative preparation, the operative process, and post-operative instructions. Follow up plan: Patient instructed to call with any further issues Patient has a post-op appointment scheduled: Yes 02-27-24 at 10am with Flower Lopez Referral (recommentation): None Educator: Lev Thompson LPN [facility] 01-22-2024 History of Present illness Narrative DATE OF SERVICE: 01/25/2024 PROBLEM: Mary Leal presents for pre-op teaching. PRE-OP DIAGNOSIS: urinary urgency SCHEDULED SURGERY AND DATE: 01-26-24 [facility] INSRT NSTIM GENERATOR BLADDER W/ POCKET CREATE [...] patient have an advanced directive: No Does [facility] have a copy of the patient's [...] prescribed by anesthesia, internal medicine, surgeon, or UTILITY WORKER [employer] Stop NSAIDs, Aspirin (ASA), vitamins, herbal supplements, [...] jewelry, body piercing, makeup, contacts, lotions, nail papua new guinean on fingers, or anything in hair on arrival to surgery Wear low healed shoes and loose fitting clothing Leave all valuables at home or with a family member Directions to [facility] Parking/parking validation on the day prior [...] if after hours patient instructed to call boiler room operator and ask for fishery division chief engineering officer resident. DENISA program offered to patient: Yes Additional teaching as indicated by patient/family learning needs. PATIENT LEARNING EVALUATION & FOLLOW UP PLAN: Patient and/or family express understanding of upcoming surgery, pre-operative preparation, the operative process, and post-operative instructions. Follow up plan: Patient instructed to call with any further issues Patient has a post-op appointment scheduled: Yes 02-27-24 at 10am with Flower Lopez Referral (recommentation): None Educator: Lev Thompson LPN [facility] documented in this encounter [facility] 01-22-2024 Instructions Lev Thompson LPN - 01/22/2024 11:22 AM EDT UROGYNECOLOGY PHYSICIAN CONTACT INFORMATION During business hours, these numbers connect to your doctor s office. During the evening and weekends, these numbers will connect you to the answering service to speak with the doctor fishery division chief. Dr. Pam Wang After hours phone number: or toll free Ask the boiler room operator to page the 'engineering officer fishery division chief.' Surgery Scheduling Office: Call the day before [...] vitamin E, herbal medications, diet pills, and fjrm-mun-xzdjbgk medications. Tylenol (acetaminophen) is okay. I will not wear jewelry, body piercing(s), makeup, nail papua new guinean, hairpins, or contacts on the day of [...] my surgeon. Discuss medication changes with your rating examiner or primary care physician as well. If I stopped taking my blood-thinning medication, I will ask the surgeon when to resume taking it. If I am an outpatient, a responsible person will drive me home and it was suggested that someone stay with me for 24 hours. I understand that a compressor mechanic bus or cabdriver is NOT a responsible caregiver. [...] for surgery, I must call my surgical elastic knitter after 2pm the day before surgery. PREOP INSTRUCTIONS THE DAY OF SURGERY/CHECK IN Report to DESK J1-9 for surgery. A map is located in Your Surgical Guide Book. The online version of the surgical guide book can be found at: [email or web address] The address is [address] [place] [address]/[place] [id number] INFECTION PREVENTION Please notify your doctor if [...] Your Surgical Guide Book for more information. [facility] TEAM At the [facility], we have a multidisciplinary team of caregivers that includes fellows, residents, nurse practitioners, physician assistants, clinical nurse specialists, nurses, medical assistants, patient care nursing assistants, social workers, showcase trimmer and many others. We all have different [...] for post-surgery concerns. documented in this encounter [facility] 01-10-2024 History of Present illness Narrative [facility] - [facility] [address] [place] [address], [address] [place] [id number] SUBJECTIVE: Patient ID (1970): Mary Leal is [...] 03/20/2020 Performed by Noman Mayo MD at [facility] ENDOSCOPY EGD, DILATATION N/A 09/25/2020 Performed by Noman Mayo MD at [facility] ENDOSCOPY ENDOSCOPIC DIAGNOSTIC DRUG INDUCED SLEEP Bilateral 09/19/2023 Performed by Cullen Dawkins MD at [facility] FOOT SURGERY 06/25/2020 left foot surgery FOOT SURGERY Right 10/2022 and 05/2023 HYSTERECTOMY 2015 LASER LINGUAL TONISILLECTOMY Circumferential 07/08/2021 Performed by Areli Avila MD PhD at [facility] MRI FOOT LEFT NECK SURGERY 2017 PLANTAR FASCIECTOMY RELEASE PHARYNGEAL SCAR CPT 00648 Circumferential 07/08/2021 Performed by Areli Avila MD PhD at [facility] RESECTION SUBMUCOSAL NASAL Bilateral 02/11/2021 Performed by Areli Avila MD PhD at [facility] ROTATOR CUFF REPAIR Right SEPTOPLASTY Circumferential 02/11/2021 Performed by Areli Avila MD PhD at [facility] TONSILLECTOMY Bilateral 02/11/2021 Performed by Areli Avila MD PhD at [facility] TOTAL COLECTOMY 03/2022 uvuloplasty N/A 02/11/2021 Performed by Areli Avila MD PhD at [facility] Family History Problem Relation Age of Onset [...] in the morning. Indications: gastroesophageal reflux disease. qmzvcdoucfl-xldfowria-egnabkyv (TRELEGY ELLIPTA) 100-62.5-25 mcg blister with device [...] mg 2.5 mg nebulization PRN Gwendolyn Stroud APRN-NET WASHER REVIEW OF SYSTEMS: Review of Systems Data [...] to ensure the accuracy of this automated powdered metal supervisor, some errors in powdered metal supervisor may have occurred. Iam Siddiqi 01/10/24 0753 documented in this encounter [facility] 01-10-2024 Instructions Cullen Dawkins MD - 01/10/2024 [...] test result within 7 days, please call [phone] to leave a request for your results. [...] Ultrasound, MRI or PET scan, please call [employer] Central Scheduling at [phone]. If you need to be scheduled for surgery, please call Aiden Augustin Surgery Coordinator at [phone], or Lazara at [phone] or our main number [phone] if you have not received a return [...] (and medications that contain aspirin): Many non-prescription (irjq-sdz-lkickfa or OTC) medications contain aspirin. If you are unsure whether a medication you take has aspirin, please ask your pharmacist or your surgeon's office. You must ask your surgical team if they want you to continue taking, or stop taking aspirin before your procedure. Medications containing aspirin that should be stopped 7 days before surgery: Juliet-[place] Anacin Aspirin Fiorinal Ascriptin Carlos Bufferin Lortab [...] L-carnosine Licorice Kava kava Milk thistle Multivitamin [place]-3 Resveratrol Skullcap [place]'s wort Vitamin E Adipex (phentermine) Glenn (orlistat) Hydroxycut Garcinia Cambogia Raspberry Ketones Dakudbuf-B-76 should be stopped 14 days before surgery You will receive specific instructions regarding your insulin and anti-coagulant/anti-platelet medications (if applicable). documented in this encounter [facility] 12-27-2023 Miscellaneous Notes PATIENT NOTIFIED WITH SURGERY TIME OF 11:00. TOLD TO ARRIVE 2 HOURS PRIOR. documented in this encounter [facility] 12-27-2023 Telephone encounter Note PATIENT NOTIFIED WITH SURGERY TIME OF 11:00. TOLD TO ARRIVE 2 HOURS PRIOR. [facility] 12-25-2023 Miscellaneous Notes See MC message A [...] distance health visit in this department: 10/25/2021 Nurse Coordinator, Nurse Next visit in this department: 01/25/2024 documented in this encounter [facility] 12-20-2023 History and physical note PRE-ADMISSION TESTING HISTORY AND PHYSICAL EXAM DATE: 12/20/23 PCP: ELICEO GÓMEZ JR, DO CHIEF COMPLAINT: CHUCKIE (obstructive sleep apnea) HISTORY OF PRESENT ILLNESS: Mary Leal, a 53 y.o. White or female, presents to [facility] for a pre-surgical H&P for a [...] 03/20/2020 Performed by Noman Mayo MD at [facility] ENDOSCOPY EGD, DILATATION N/A 09/25/2020 Performed by Noman Mayo MD at [facility] ENDOSCOPY ENDOSCOPIC DIAGNOSTIC DRUG INDUCED SLEEP Bilateral 09/19/2023 Performed by Cullen Dawkins MD at [facility] FOOT SURGERY 06/25/2020 left foot surgery FOOT SURGERY Right 10/2022 and 05/2023 HYSTERECTOMY 2015 LASER LINGUAL TONISILLECTOMY Circumferential 07/08/2021 Performed by Areli Avila MD PhD at [facility] MRI FOOT LEFT NECK SURGERY 2017 PLANTAR FASCIECTOMY RELEASE PHARYNGEAL SCAR CPT 05681 Circumferential 07/08/2021 Performed by Areli Avila MD PhD at [facility] RESECTION SUBMUCOSAL NASAL Bilateral 02/11/2021 Performed by Areli Avila MD PhD at [facility] ROTATOR CUFF REPAIR Right SEPTOPLASTY Circumferential 02/11/2021 Performed by Areli Avila MD PhD at [facility] TONSILLECTOMY Bilateral 02/11/2021 Performed by Areli Avila MD PhD at [facility] TOTAL COLECTOMY 03/2022 uvuloplasty N/A 02/11/2021 Performed by Areli Avila MD PhD at [facility] FAMILY HISTORY: Family History Problem Relation Age [...] Indications: gastroesophageal reflux disease., Disp: , Rfl: rxqzqqjspru-knsnuosic-czoweqfb (TRELEGY ELLIPTA) 100-62.5-25 mcg blister with device, [...] 2.5 mg, 2.5 mg, nebulization, PRN, Gwendolyn Nicole Stroud, DIESEL SERVICE APPRENTICE-NET WASHER REVIEW OF SYSTEMS: Review of Systems Constitutional: [...] the most recent lab values available in [facility] at the time of the office visit and additional labs may have been drawn since that time. ASSESSMENT / DIAGNOSIS: CHUCKIE (obstructive sleep apnea) PLAN: Mary Leal is scheduled for Insertion Stimulator Nerve Hypoglossal - Right with Dr. Dawkins on 01/02/2024. STELLA Duron 12/20/23 1240 [facility] 12-20-2023 History and physical note PRE-ADMISSION TESTING HISTORY AND PHYSICAL EXAM DATE: 12/20/23 PCP: ELICEO GÓMEZ JR, DO CHIEF COMPLAINT: CHUCKIE (obstructive sleep apnea) HISTORY OF PRESENT ILLNESS: Mary D Elvis, a 53 y.o. White or female, presents to [facility] for a pre-surgical H&P for a [...] 03/20/2020 Performed by Noman Mayo MD at [facility] ENDOSCOPY EGD, DILATATION N/A 09/25/2020 Performed by Noman Mayo MD at [facility] ENDOSCOPY ENDOSCOPIC DIAGNOSTIC DRUG INDUCED SLEEP Bilateral 09/19/2023 Performed by Cullen Dawkins MD at [facility] FOOT SURGERY 06/25/2020 left foot surgery FOOT SURGERY Right 10/2022 and 05/2023 HYSTERECTOMY 2015 LASER LINGUAL TONISILLECTOMY Circumferential 07/08/2021 Performed by Areli Avila MD PhD at [facility] MRI FOOT LEFT NECK SURGERY 2017 PLANTAR FASCIECTOMY RELEASE PHARYNGEAL SCAR CPT 81738 Circumferential 07/08/2021 Performed by Areli Avila MD PhD at [facility] RESECTION SUBMUCOSAL NASAL Bilateral 02/11/2021 Performed by Areli Avila MD PhD at [facility] ROTATOR CUFF REPAIR Right SEPTOPLASTY Circumferential 02/11/2021 Performed by Areli Avila MD PhD at [facility] TONSILLECTOMY Bilateral 02/11/2021 Performed by Areli Avila MD PhD at [facility] TOTAL COLECTOMY 03/2022 uvuloplasty N/A 02/11/2021 Performed by Areli Avila MD PhD at [facility] FAMILY HISTORY: Family History Problem Relation Age [...] Indications: gastroesophageal reflux disease., Disp: , Rfl: nmtibnrozbm-bophldjlq-hihisjme (TRELEGY ELLIPTA) 100-62.5-25 mcg blister with device, [...] 2.5 mg, 2.5 mg, nebulization, PRN, Gwendolyn Nicole Stroud, DIESEL SERVICE APPRENTICE-NET WASHER REVIEW OF SYSTEMS: Review of Systems Constitutional: [...] the most recent lab values available in [facility] at the time of the office visit and additional labs may have been drawn since that time. ASSESSMENT / DIAGNOSIS: CHUCKIE (obstructive sleep apnea) PLAN: Mary Leal is scheduled for Insertion Stimulator Nerve Hypoglossal - Right with Dr. Dawkins on 01/02/2024. STELLA Duron 12/20/23 1240 documented in this encounter [facility] 12-20-2023 Instructions Earlene Whalen RN - 12/20/2023 11:45 AM EST Your surgery/procedure is scheduled at [facility] on 01/02/2024 Arrival Time Surgeon will call [facility] Address: [address] [place] [address], [address] [address] in the Emergency Center Parking lot. Report to the landscape nurseryman in the Emergency/Surgery Registration lobby of the hospital. Please call Pre-Admission Clinic at [phone] if you have any questions prior to surgery. For questions the morning of surgery, please call the Pre-op Department at [phone]. Notify your SURGEON if you develop any [...] would like to schedule therapy at a [facility] facility, please call [phone] ([phone]). Do not use lotions, creams, powders, perfume, make up, cologne or after-shaves day of surgery. Remove ALL jewelry including wedding rings, body piercings, hair extensions that contain metal, nail papua new guinean, make-up, and contact lens. You may brush your teeth the morning of surgery, but do not swallow the water. Wear your dentures and partial plates to the hospital (no adhesive). Shower the night the before. If applicable, use the CHG (chlorhexidine gluconate) soap or wipes. Please be advised, [facility] has transitioned to a cashless payment [...] RIGHTS AND RESPONSIBILITIES As a patient at [facility], you have the right to: Receive medical care and be informed of who is taking care of you Be treated with dignity and respect Have a family member/credit and collections representative of choice and your physician notified of your admission Receive information and actively participate in decisions about your care and treatment Refuse care, treatment and services Decide who may provide your support and speak for you Access mosque and spiritual services Participate in ethical issues [...] of hospital charges and payment methods Patient/patient credit and collections representative responsibilities are to: Provide information about [...] in clean clothes. documented in this encounter [facility] 11-21-2023 Note HNO ID: [id number] Author: PAM WANG MD Service: ? Author [...] personal performance and is accurate and complete. [facility] 11-08-2023 Miscellaneous Notes NURTEC PENDING WITH TEJADA [id number] documented in this encounter [facility] 11-08-2023 Telephone encounter Note NURTEC PENDING WITH TEJADA [id number] [facility] 10-12-2023 Note Patient emailed stat ing she is finding another provider and will no longer be seen at this clinic. [facility] 10-12-2023 Note HNO ID: [id number] Author: Pam Wang MD Service: ? Author [...] Video-assisted cystourethroscopy was performed using a 19 Malian 70 and 30 degree rigid cystoscope with [...] urethra PLAN: See progress note from today [facility] 10-10-2023 Note HNO ID: [id number] Author: Pam Wang MD Service: ? Author [...] PFSH obtained by others. Pam Wang MD Quality Analyst/Technical Writer offered: Patient declines. OBJECTIVE: BP 102/60 General: [...] would like to move forward with PNE. [employer] [place] packet given to patient today to review. [...] which included preparing to see the patient, sqje-qa-omiy patient care, completing clinical documentation, obtaining and/or reviewing separately obtained history, performing a medically appropriate examination, counseling and educating the patient/family/caregiver, and communicating with other HCP (more content not included)... [facility] 10-02-2023 Miscellaneous Notes Patient was called to find out if there was another pharmacy to send her medication for Diflucan. Patient stated to disregard this medication. Patient stated that she does not need this medication now and that she will be visiting her PCP tomorrow (10/03/23) to address her sickness that she had before going to [place]. She states that she was going to [...] MEREDITH: 09/27/2023 Doris Arias APRN.[facility] ([facility]) ASSESSMENT: Mary Leal is a 53 year old female with: (R35.0) Urinary frequency (primary encounter diagnosis) (B37.31) Bety vaginitis PLAN: - Discussed r/b/a of empirical [...] Dr. Pam Wang documented in this encounter [facility] 09-27-2023 Note HNO ID: [id number] Author: Doris Arias APRN.NET WASHER Service: ? Author Type: Nurse Practitioner Type: [...] and some malodorous urine. Patient in [place], unable to come in for visit. Has [...] urination is normal and pressure with urinating GUEST SERVICES LEAD: denies abnormal vaginal bleeding, no vaginal discharge PHYSICAL EXAMINATION: VIDEO EXAM: (if completed, performed via video enabled technology) GENERAL: alert and appropriate, in no distress, well-hydrated, well nourished, and happy, smiling, interactive ASSESSMENT: Mary Leal is a 53 year old female with: (R35.0) Urinary frequency (primary encounter diagnosis) (B37.31) Bety vaginitis PLAN: - Discussed r/b/a of empirical [...] Level: 3 - Low Doris Arias APRN.[facility] 09-27-2023 Miscellaneous Notes Scheduled 10/10/23 for [...] which included preparing to see the patient, tomv-az-gdzu patient care, completing clinical documentation, obtaining and/or [...] Office will call to schedule cystoscopy. Urogynecology [facility] Main provided: Pam Wang Staff Physician, Department of Urogynecology and Pelvic Floor Disorders Worsening frequency and urgency of urination. Is a urine culture indicated? Please review/advise Lex Vieyra RN documented in this encounter [facility] 09-19-2023 Note Patient states she m istook this medication and has been off for 7 days. Restarting it at the 25mg dose. [facility] 09-11-2023 Note HNO ID: [id number] Author: Jairon Lai MD Service: ? Author Type: Physician Type: Progress Notes Filed: 09/11/2023 1:18 PM Note Text: [facility] [...] to void lower flow Jairon Lai MD [facility] 09-11-2023 Note HNO ID: [id number] Author: Phil Beckford MD Service: ? Author [...] from sling incision +/- discussion of [facility] 09-01-2023 Note Spoke with patient. Canceling valium script. Increasing ativan dose to bid with current bottle for mgmt of anxiety. Appoitment on Saturday 09/08 - she will bring in ativan to count tablets. She states she has 20 left as of today. She should have 4 left at that appointment. 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 Respiratory: Negative. Cardiovascular: Negative. Psychiatric/Behavioral: dysphoric mood, irritability, insomnia Date of Telehealth Visit: 08/23/23 Chief Complaint Patient presents with Telehealth Audio/video Visit [email or web address] The patient was notified that using 3rd democrat telecommunication application (e.g., [employer]) is not HIPPA compliant and may carry some privacy risks. Yes The visit was conducted ujwf-yn-qawe with the use of audio and video technology [place] between patient and provider for a virtual [...] Wear CPAP/ Insp (more content not included)... [facility] 08-21-2023 Note Est [facility] 08-12-2023 Emergency department Note Discharge, follow up, referral, and prescription information reviewed and explained; all questions and concerns addressed. Patient A/Ox3 in NAD, resp. easy unlabored upon discharge, escorted to exit by staff. [facility] 08-12-2023 Emergency department Note Discharge, follow up, [...] gastroparesis, gastroenteritis, acute cholecystitis, pancreatitis, less likely NV The patient's initial and delta troponin are negative. EKG does not demonstrate any ischemic changes. Low suspicion for NV. Her urinalysis is negative for UTI. Urine [...] follow-up. She was instructed to call her rescue boat operator and PCP to schedule follow-up appointments. She was instructed to return to the emergency department if she has any new or worsening symptoms. Patient agreeable plan of care. Return precautions discussed at bedside. Spoke with Dr. Salmon regarding patient. Physician to complete their own physical exam and evaluation. Collaboration performed between this POULTRY PROCESSOR and physician regarding patient's plan of care. [...] following orders were created for panel order [place] Draw. Procedure Abnormality Status --------- ------ Gold Top[[id number]] Final result LIGHT BLUE TOP[[id number]] Final result Dark Green Top[[id number]] Final result Please view results for these [...] PWD. NAD noted. documented in this encounter [facility] 08-12-2023 Hospital Discharge instructions Lev Ritter APRN [...] cannot be sent through Care Everywhere.Abdominal Pain (Qatari Mauritian)documented in this encounter [facility] 08-12-2023 Emergency department Note Report to Les GAMBINO [facility] 08-12-2023 Physician Emergency department Note Images from [...] gastroparesis, gastroenteritis, acute cholecystitis, pancreatitis, less likely NV The patient's initial and delta troponin are negative. EKG does not demonstrate any ischemic changes. Low suspicion for NV. Her urinalysis is negative for UTI. Urine [...] follow-up. She was instructed to call her rescue boat operator and PCP to schedule follow-up appointments. She was instructed to return to the emergency department if she has any new or worsening symptoms. Patient agreeable plan of care. Return precautions discussed at bedside. Spoke with Dr. Salmon regarding patient. Physician to complete their own physical exam and evaluation. Collaboration performed between this POULTRY PROCESSOR and physician regarding patient's plan of care. [...] following orders were created for panel order [place] Draw. Procedure Abnormality Status --------- ------ Gold Top[[id number]] Final result LIGHT BLUE TOP[[id number]] Final result Dark Green Top[[id number]] Final result Please view results for these tests on the individual orders. GOLD TOP LIGHT BLUE TOP DARK GREEN TOP TROPONIN I Records reviewed: Urogynecology telemedicine visit 08/07/2023 ENT visit 07/11/2023 Family medicine visit 07/06/2023 Lev Ritter APRN CNP 08/12/23722 [facility] 08-12-2023 Emergency department Note Emily at bedside [facility] 08-12-2023 Emergency department Triage note Ambulates to triage with C/O sudden epigastric gnawing, burning pain that woke her from sleep. Also reports wheezing. States nausea. Denies fever. Alert. Respirations easy and unlabored. Skin PWD. NAD noted. [facility] 08-07-2023 Note HNO ID: [id number] Author: Pam Wang MD Service: ? Author [...] no Pain: no Abnormal Vaginal Discharge: no GUEST SERVICES LEAD 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 She has no history of an abnormal mammogram with cysts on US LMP: No LMP recorded. Patient has had a hysterectomy.; Menopause 3 years ago; hysterectomy in 2015: Menstrual history: NA; Deliveries: I have confirmed and edited as necessary, the PFSH obtained by others. Pam Wang MD Quality Analyst/Technical Writer offered: Patient declines. OBJECTIVE (Virtual) There were [...] which included preparing to see the patient, vawi-dc-lydh patient care, completing clinical documentation, obtaining and/or reviewing separately obtained history, counseling and educating the patient/family/caregiver, ordering medications, tests, or procedures, and communicating with other HCPs (not separately reported). Pam Wang MD [facility] 07-31-2023 Note HNO ID: [id number] Author: Nelsy Chávez APRN.[facility] Service: ? Author Type: Nurse Practitioner [...] new Pain: no Abnormal Vaginal Discharge: no GUEST SERVICES LEAD 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 She has no history of an abnormal mammogram with cysts on US LMP: No LMP recorded. Patient has had a hysterectomy.; Menopause 3 years ago; hysterectomy in 2015: Menstrual history: NA; Deliveries: I have confirmed and edited as necessary, the PFSH obtained by others. Nelsy Chávez APRN.NET WASH[employer] Quality Analyst/Technical Writer offered: Patient declines. OBJECTIVE: There were no [...] for now d/t side effects Nelsy Chávez APRN.NET WASHER I spent a total of 45 minutes on the date of the service which included preparing to see the patient, sdhp-le-fbmy patient care, completing clinical documentation, performing a medically appropriate examination, counseling and educating the patient/family/caregiver and ordering medications, tests, or procedures. [facility] 07-31-2023 History of Present illness Narrative [...] new Pain: no Abnormal Vaginal Discharge: no GUEST SERVICES LEAD 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 She has no history of an abnormal mammogram with cysts on US LMP: No LMP recorded. Patient has had a hysterectomy.; Menopause 3 years ago; hysterectomy in 2015: Menstrual history: NA; Deliveries: I have confirmed and edited as necessary, the PFSH obtained by others. Nelsy Chávez APRN.NET WASHER Quality Analyst/Technical Writer offered: Patient declines. OBJECTIVE: There were no [...] which included preparing to see the patient, cmil-ts-apyf patient care, completing clinical documentation, performing a medically appropriate examination, counseling and educating the patient/family/caregiver and ordering medications, tests, or procedures. documented in this encounter [facility] 07-25-2023 Note Patient: Mary rutledge Procedure Summary Date: 07/25/23 Room / Location: [facility] Invasive [facility] [place] Main OR Anesthesia Start: 1105 Anesthesia Stop: [...] per anesthesia protocol. No notable events documented. [facility] 07-25-2023 Note Patient: Mary rutledge Procedure Summary Date: 07/25/23 Room / Location: [facility] Main OR Anesthesia Start: 1105 Anesthesia Stop: Procedures: EGD DIAGNOSTIC COLONOSCOPY Diagnosis: Gastroesophageal reflux disease without esophagitis Nausea Diarrhea, unspecified type Scheduled Providers: Matteo Quinones MD; Blanquita Ramirez MD Responsible Provider: Blanquita Ramirez MD Anesthesia Type: MAC ASA Status: 3 Anesthesia Post [facility] Patient Monitor: direct observation Transport: uneventful Patient condition is: stable [facility] 07-25-2023 Note Patient: Mary rutledge Procedure Information Date/Time: 07/25/23 1100 Scheduled providers: Matteo Quinones MD; Blanquita Ramirez MD Procedures: EGD DIAGNOSTIC COLONOSCOPY Location: [facility] Main OR Relevant Problems Anesthesia [...] who. Plan discussed with resident, CAA and DIRECTOR OF DISTRIBUTION. 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 Do not wear perfume, make-up, nail papua new guinean, or lotions on the day of your [...] need to make any changes, please call [phone]. Notify your surgeon if you develop any illness such as a cold, cough, fever, sore throat or vomiting between now and your surgery. Thank you for entrusting us with your care. 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 Respiratory: Negative. Cardiovascular: Negative. Psychiatric/Behavioral: Negative. Date of Telehealth Visit: 06/08/23 Chief Complaint Patient presents with Telehealth Audio/video Visit [email or web address] The patient was notified that using 3rd democrat telecommunication application (e.g., [employer]) is not HIPPA compliant and may carry some privacy risks. Yes The visit was conducted vpqu-ef-gevz with the use of audio and video technology Donordonut between patient and provider for a virtual [...] dictated by speech recognition. Minor errors in powdered metal supervisor may be present. Information on after hour access to care was provided - encouraged to use 911, [facility], their [facility] crisis hotline, or the nearest emergency room in the event of a crisis. Also informed of 24 hour access at [facility] and if in crisis after regular business hours may call the hospital boiler room operator [phone]; and ask to speak with the president & founder on-call. Patient Rights and Responsibilities were discussed, [...] get back t (more content not included)... [facility] 05-31-2023 Note [facility] Gastroenterolog y New Patient Visit - History & Physical CHIEF COMPLAINT Chief Complaint Patient presents with Nausea GERD Abdominal Pain New Patient HISTORY OF PRESENT ILLNESS: Mary Leal is a 53 y.o. female new patient referred by Dr. Gómez for gastroparesis, GERD, and abdominal pain. Past medical history includes gastroparesis ( was evaluated by DR Masters at [facility]) and total abdominal colectomy with ileorectal anatamosis, [...] LABS/IMAGING/ENDOSCOPY: Flex sig 12/05/22 Dr. Masters ( [facility]) Impression: - The area at 20 cm [...] Genitourinary syndrome of menopause Headache History of 2018 novel coronavirus disease (COVID-19) Hot flashes due [...] Abnormal mammogram Arthritis (more content not included)... [facility] 05-22-2023 Note You are not granted access to view this sensitive note. [facility] 05-17-2023 Note Psych Progress Note Time In: 1245 Time Out: 110 HPI Present at Visit: Mary Location of Service: Office Review of Systems Constitutional: Negative. Respiratory: Negative. Cardiovascular: Negative. Psychiatric/Behavioral: Negative. Date of Telehealth Visit: 05/17/23. Chief Complaint Patient presents with Telehealth Audio/video Visit [email or web address] The patient was notified that using 3rd democrat telecommunication application (e.g., [employer]) is not HIPPA compliant and may carry some privacy risks. Yes The visit was conducted nqup-sv-efxi with the use of audio and video technology Donordonut between patient and provider for a virtual [...] dictated by speech recognition. Minor errors in powdered metal supervisor may be present. Information on after hour access to care was provided - encouraged to use 911, [facility], their [facility] crisis hotline, or the nearest emergency room in the event of a crisis. Also informed of 24 hour access at [facility] and if in crisis after regular business hours may call the hospital boiler room operator [phone]; and ask to speak with the president & founder on-call. Patient Rights and Responsibilities were discussed, [...] alternatives to tr (more content not included)... [facility] 05-17-2023 Note You are not granted access to view this sensitive note. [facility] 04-26-2023 Evaluation note Encounter Date [...] Above note written by Wanda Yang LPN, Weld Inspector. Edited and approved by Dr. Beto Harris MD. [employer] Other 06-06-2023 Miscellaneous Notes* Telephone Encounter - Serenity Joseph MA - 04/11/2023 10:19 AM EDT MEREDITH=10/11/22 Spoke with patient she does need a refill Medication pended please file Rx request if appropriate Patient and pharmacy verified [facility] Miscellaneous Notes* Telephone Encounter - Regina Denae - 03/20/2023 2:50 PM EDT Should patient follow up via virtual visit to discuss further? * Telephone Encounter - Steffi Ross LPN - 03/20/2023 10:20 AM EDT Patient's stool tests came back normal. Steffi Ross LPN documented in this encounterT[facility]04-18-2023 NotePROCEDURE: XR ANKLE RT MIN 3 [...] Electronically authenticated by: ZAIDA ACOSTA Date: 2023-02-21 10:15[facility]04-18-2023 NotePROCEDURE: XR ANKLE RT MIN 3 [...] Electronically authenticated by: ZAIDA ACOSTA Date: 2023-02-21 10:15[facility]03-28-2023 NotePROCEDURE: XR FOOT RT MIN 3 [...] Electronically authenticated by: ZAIDA ACOSTA Date: 2023-01-31 11:55[facility]03-16-2023 Miscellaneous Notes* Telephone Encounter - Jennie Moreno RN - 01/19/2023 2:17 PM EDT Please review and advise patient. documented in this encounterTus[facility]03-13-2023 Miscellaneous Notes* Telephone Encounter - Mounika Roberto PA-C - 01/16/2023 1:08 PM EDT Patient was scheduled for virtual PACC appt at 1300 today. Patient did not check in for visit. Called patient at [phone] to see if they needed any assistance logging in and left voicemail. This message routed to PACC schedulers to contact patient to reschedule PACC appt. Mounika Roberto PA-C January 16, 2023 1:09 PM documented in this encounterTus[facility]03-13-2023 History and physical note * Mounika Roberto PA-C - 01/16/2023 1:00 PM EDT This is a virtual visit using [employer] video visit. It required patient-provider interaction for themedical decision making as documented below. I have communicated my name and active licensure. The patient's identity and physical location wereverified at the time of this visit. Either the patient or their legal credit and collections representative has been informed of the risks and benefits of and alternatives to treatment through a remote evaluation and consents to proceed with the evaluation remotely. Surgeon: Winston Hannah DO Type of surgery: GEN SURG: POP Patient scheduled for surgery on 02/08/23 . Surgery [facility] Diagnosis: Preop examination (primary encounter diagnosis) [...] in the AM and 4 mg PM scfyfeurnvb-wbhynckag-mdjfgxqf (TRELEGY ELLIPTA) 100-62.5-25 mcg Inhale 1 Puff [...] 16, 2023 12:36 PM documented in this encounterTus[facility]aw[facility]03-13-2023 Instructions* Patient Instructions* Mounkia Roberto PA-C - 01/16/2023 12:38 PM EDT PATIENT PREOPERATIVE INSTRUCTIONS Winston Hannah DO has scheduled you for your procedure at this surgery center: [facility]: [phone] -- [place] [address]. Please read below carefully for your personalized [...] Procedures: - YOU MUST HAVE A RESPONSIBLE STAFF DEVELOPMENT EDUCATOR TAKE YOU HOME. A METAL BUMPER OR FIBER WORKER CANNOT BE MADE A RESPONSIBLE STAFF DEVELOPMENT EDUCATOR. - We recommend that a responsible person [...] Advance Directive, please fax a copy to [phone] or email to for it to be [...] day. Mounika Roberto PA-C documented in this encounterTus[facility]03-08-2023 Miscellaneous Notes* Telephone Encounter - Berta Ann RN - 01/11/2023 9:47 AM EST Procedure pended for 02/08/23. Pt aware of need for PACC. Pre-op instructions reviewed, will send to pt's MC, per pt request. Postop appt scheduled. No other questions at this time. Berta FRIEDMANN, RN Specialty Fur Mixer documented in this encounterTuscaraw[facility]03-07-2023 History of Present illness Narrative* Winston Hannah DO - 01/10/2023 9:09 AM EST Images from the original note were not included. [facility] Gastroparesis/Dysmotility Follow Up This encounter was provided [...] of care. NAME: Mary Leal CLINIC NO: [id number] CHIEF COMPLAINT Idiopathic Gastroparesis HISTORY OF PRESENT [...] Normal gastric transit Normal small bowel transit [id number] transit in the distal bowel consistent delay [...] (FLONASE) 50 mcg/actuation nasal spray Use 1 Wiggins in each nostril once daily. carBAMazepine XR [...] THE LUNGS every 4 hours if needed okmdfyxjimg-hdqucmvkw-gpydomyn (TRELEGY ELLIPTA) 100-62.5-25 mcg Inhale 1 Puff [...] dialysis. No history of symptoms or problems. GUEST SERVICES LEAD: Negative for abnormal vaginal bleeding, abnormal vaginal [...] and plan of care. documented in this encounterT[facility]02-23-2023 Miscellaneous Notes* Addendum Note - Yoni Tuttle MD - 12/29/2022 3:37 PM ESTAddended by: YONI TUTTLE MD on: 12/29/2022 03:37 PM Modules accepted: Orders documented in this encounterTuscaraw[facility]02-20-2023 History of Present illness Narrative* RT [...] 26, 2022 3:17 PM documented in this encounterTuscaraw[facility]02-17-2023 Miscellaneous Notes* Telephone Encounter - Erica Serrano RN - 12/23/2022 4:36 PM EST Message being addressed in another encounter that was forwarded to provider documented in this encounterTuscaraw[facility]02-16-2023 History of Present illness Narrative* Winston Hannah, DO - 12/22/2022 8:52 AM EST Images from the original note were not included. [facility] Gastroparesis/Dysmotility Follow Up This encounter was provided [...] completed esophagram NAME: Mary Leal CLINIC NO: [id number] CHIEF COMPLAINT Idiopathic Gastroparesis HISTORY OF PRESENT [...] chicken spaghetti etc. Duration of symptoms (months): 6602-7836 Weight changes in last 3 months: Stable [...] Normal gastric transit Normal small bowel transit [id number] transit in the distal bowel consistent delay [...] (FLONASE) 50 mcg/actuation nasal spray Use 1 Wiggins in each nostril once daily. carBAMazepine XR [...] THE LUNGS every 4 hours if needed fkdqaksgujr-ybhgahbgc-ahxuozgr (TRELEGY ELLIPTA) 100-62.5-25 mcg Inhale 1 Puff [...] dialysis. No history of symptoms or problems. GUEST SERVICES LEAD: Negative for abnormal vaginal bleeding, abnormal vaginal [...] and plan of care. documented in this encounterTuscaraw[facility]02-15-2023 NotePROCEDURE: XR FOOT RT MIN 3 [...] Electronically authenticated by: ZAIDA ACOSTA Date: 2022-12-21 12:24[facility]02-09-2023 History of Present illness Narrative* Mary [...] CAMPUS 10/2015 for endometriosis, has remaining both Current [...] in the AM and 4 mg PM plxfpnkrael-pzjsuljfz-lmthavyc (TRELEGY ELLIPTA) 100-62.5-25 mcg Inhale 1 Puff [...] which included preparing to see the patient, nhkx-nc-suaq patient care, completing clinical documentation, obtaining and/or reviewing separately obtained history, counseling and educating the patient/family/caregiver, ordering medications, quincy ts, or procedures, communicating with other HCPs (not separately reported), independently interpreting results (not separately reported), communicating results to the patient/family/caregiver, and care coordination (not separately reported). Mary Obrien MD Colorectal Surgery documented in this encounterTuscarawas Hospital02-08-2023 Miscellaneous Notes* Telephone Encounter - Emily Benton RN - 12/14/2022 5:19 PM EST Several attempts to reach pt unsuccessful - MC sent. * Telephone Encounter - Barber Marie - 12/02/2022 8:39 AM EST SLEEP PHONE Name of caller: Mary Leal Relationship to patient : Self In-state or vdh-cn-hmdpf patient: In-State Was permission obtained from patient? Yes Patient identified by Name and Date of . ( Mary Leal, 1970). Yes Reason for Call : Patient said her and Emily was chatting through my chart and Emily calledher about 5:15 yesterday. Number to return call [phone] Okay to leave a message ? Yes Last office visit 10/14/[address] Kusum vines Next office visit 01/13/[address] Tuttle virtual documented in this encounterTuscarawas Hospital02-06-2023 Miscellaneous Notes* Telephone Encounter - Jet Wong RN - 12/12/2022 9:[address] Obrien sent my chart message to respond to this phone encounter and previous my chart message. * Telephone Encounter - Madyson Villanueva Pss - 12/09/2022 3:22 PM EST Patient called and left message regarding post operative 03/2022 total laparoscopic colectomy and concerns regarding symptoms and follow up testing return call to [phone] documented in this encounterTuscarawas Hospital02-03-2023 Miscellaneous Notes* Telephone Encounter - MALAIKA [...] patient Summary: As noted Concerns: Procedure results Fur Mixer plan for next outreach: Will follow up Signature Nelsy Gilmore RN December 08, 2022 documented in this encounterTuscarawas Hospital01-30-2023 Nurse Note* Lisa Contreras RN - 12/05/2022 1:05 PM EST [facility] ENDOSCOPY PRE PROCEDURE CALL Akiko. I'm calling from [facility] endoscopy to provide you with the information for your surgery/procedure tomorrow. Spoke to: Patient CONFIRM Procedure Planned with patient:Esophagogastroduodenoscopy(EGD) with or without biopies based on clinical findings, removal of polyps or lesions Are you familiar with where [facility] is located?yes Address [facility] Patient instructed to enter through the main hospital entrance off [address] through the revolving doors and check in at the main desk with your power screwdriver operator's license and insurance card.yes When anesthesia or sedation is being given: Patient instructed you must have an adult power screwdriver operator because you will not be able to work or drive for the rest of the day after your test.yes Can you please confirm the name and relationship of your power screwdriver operator. tbd What is the best number for your power screwdriver operator to be reached at tomorrow for updates? tbd Your power screwdriver operator is allowed to wait here with [...] Do not wear makeup, lotion, or finger papua new guinean. yes Patient instructed: Please bring a list [...] given Any barriers to Patient learning (confusion? Sous Chef needed?): Patient/Patient [employer] Special Ed Teacher responded appropriately on phone. If patient needs to reschedule please call: [phone] [facility] phone number: [phone] Type of instruction given: Verbal by telephone contact. documented in this encounterTuscarawas Hospital01-27-2023 Nurse Note* Isra Harman RN - 12/02/2022 10:48 AM EST [facility] ENDOSCOPY PRE PROCEDURE CALL Akiko. I'm calling from [facility] endoscopy to provide you with the information for your surgery/procedure tomorrow. Spoke to: Patient CONFIRM Procedure Planned with patient: Are you familiar with where [facility] is located?yes Address [address] [facility] Patient instructed to enter through the main hospital entrance off [address] through the revolving doors and check in at the main desk with your power screwdriver operator's license and insurance card.yes When anesthesia or sedation is being given: Patient instructed you must have an adult power screwdriver operator because you will not be able to work or drive for the rest of the day after your test.yes Can you please confirm the name and relationship of your power screwdriver operator. Rich What is the best number for your power screwdriver operator to be reached at tomorrow for updates? 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 yes Patient instructed: Please bring a list [...] given Any barriers to Patient learning (confusion? Sous Chef needed?): Patient/Patient [employer] Special Ed Teacher responded appropriately on phone. If patient needs to reschedule please call: [phone] [facility] phone number: [phone] Type of instruction given: Verbal by telephone contact. documented in this encounterT[facility]01-26-2023 NotePROCEDURE: XR FOOT RT MIN 3 [...] Electronically authenticated by: ZAIDA ACOSTA Date: 2022-12-01 11:42[facility]01-26-2023 NotePROCEDURE: XR FOOT RT MIN 3 [...] Electronically authenticated by: ZAIDA ACOSTA Date: 2022-12-01 11:42[facility]01-25-2023 History of Present illness Narrative* Isra Ila Masters, DO - 11/30/2022 1:35 PM EST [...] in the AM and 4 mg PM fungfycvgmq-mqpxsjkgb-qnjqxluk (TRELEGY ELLIPTA) 100-62.5-25 mcg Inhale 1 Puff [...] no edema RESPIRATORY: No dyspnea : neg GUEST SERVICES LEAD: neg The remainder of the review of [...] Isra Masters DO 11/30/2022 documented in this encounterTuscarawas Hospital01-19-2023 Miscellaneous Notes* Telephone Encounter - Erica Serrano RN - 11/24/2022 3:20 PM EST This concern was addressed in the phone encounter on 11/24/22. Patient was called back and informed [facility] will complete Prior Authorization for her sleep study. documented in this encounterTuscarawas Hospital01-19-2023 Miscellaneous Notes* Telephone Encounter - Erica [...] questions answered. * Telephone Encounter - Barber PatelLudmila - 11/24/2022 2:46 PM EST SLEEP PHONE Name of caller: Mary Leal Relationship to patient : Self In-state or wcl-hd-mdesq patient: In-State Was permission obtained from patient? Yes Patient identified by Name and Date of . ( Mary Leal, 1970). Yes Reason for Call : Patient stated she spoke to her insurance and they told her that the provider need to call [facility] to see if a PA is needed for the PAP Titration. Number to return call [phone] Okay to leave a message ? Yes Last office visit 10/14/[address] Tuttle virtual Next office visit None documented in this encounterTuscarawas Hospital01-19-2023 History of Present illness Narrative* Isra Masters DO - 11/24/2022 8:29 AM EST Images from the original note were not included. [employer] Test Report - [id number] Test start date: 11/17/2022 10:03 AM Industrial Illuminating Engineer: [email or web address] Interpretation date: 11/24/2022 Ordering physician: Isra Masters DO Referring physician: Patient Information Name: ElvisMary ID: [id number] date: 1970 Height ft. in.: 5' 4 [...] Normal gastric transit Normal small bowel transit [id number] transit in the distal bowel consistent delay post anastomosis Signature _Dr. Masters Date _11/24/2022 documented in this encounterTuscarawas Hospital01-17-2023 Miscellaneous Notes* Telephone Encounter - Regina Philippe - 11/22/2022 3:37 PM EST Patient calling to verify that Smart Pill monitor was received at [facility]. Monitor was sent via [employer] on 11/19/22. Patient is requesting a confirmation. documented in this encounterTuscarawas Hospital01-16-2023 Miscellaneous Notes* Telephone Encounter - Erica Serrano RN - 11/21/2022 9:11 AM EST Res[employer] Motion message sent to patient. Prior Sleep study forwarded to MD to review, Order pended for PAP-titration for provider to review and sign if necessary. documented in this encounterTuscarawas Hospital01-16-2023 History and physical note * Yodit Back PA-C - 11/21/2022 8:00 AM EST PREANESTHESIA CONSULT CLINIC TELEHEALTH VISIT Patient has been identified by name and date of : Yes This is a virtual visit using Respiratory Motion video visit. It require patient-provider interaction for [...] in the AM and 4 mg PM uxbgacvxyoy-nmnmnbkni-zzmnjebo (TRELEGY ELLIPTA) 100-62.5-25 mcg Inhale 1 Puff as instructed once daily. No current facility-administered medications for this visit. COVID VACCINATION STATUS: Fully vaccinated REVIEW OF SYSTEMS: Pain Assessment: General: No weight loss, malaise or fevers. Neuro: No history of TIA's, stroke, WOUND/OSTOMY NURSE tumor, impaired sensorium, hemiplegia, paraplegia or quadraplegia. [...] requiring medication, no history of angina, CHF, NV, cardiac surgery or stents. Denies rest pain, gangrene or revascularization/amputation for PVD. No history of cardiovascular symptoms or problems. + HLD GI: See HPI : No history of dysuria, frequency or incontinence,, stones or chronic kidney disease GUEST SERVICES LEAD: Negative for abnormal vaginal bleeding, abnormal vaginal [...] 8:07 AM PAGER/CONTACT #: documented in this encounterTuscarawas Hospital01-12-2023 Miscellaneous Notes* Addendum Note - Yoni [...] - 11/02/2022 12:33 PM EST Received from [facility] Report via fax. 8 pages indexed to chart. documented in this encounterTuscarawas Hospital01-12-2023 History of Present illness Narrative* Annmarie [...] complete. You will be wearing a Data Feather Trimmer around your neck like a necklace during the test. You must keepthis near you at all times. The Data Feather Trimmer has an EVENT button. You will be [...] is inside your body. Return the Data Feather Trimmer to the [facility] after your test is completed. Brittanie Gillespie RN documented in this encounterTuscarawas Hospital01-09-2023 NotePROCEDURE: XR FOOT RT MIN 3 [...] authenticated by: ZAIDA ACOSTA Date: 2022-11-14 10:39[facility] CenterTjrgfcto83-58-2153 NotePROCEDURE: XR FOOT RT MIN 3 VIEWS [...] authenticated by: NICKI DACOSTA Date: 2022-11-10 11:44[facility] CenterFpxmzjuh47-97-7333 Miscellaneous Notes* Telephone Encounter - Annmarie Gillespie RN - 11/10/2022 9:07 AM EST Telephoned patient with SmartPill procedure appointment reminder/instructions. Brittanie Gillespie RN documented in this encounterTuscarawas Hospital01-04-2023 Miscellaneous Notes* Telephone Encounter - Regina [...] to make it legit. documented in this encounterTuscarawas Hospital01-04-2023 Miscellaneous Notes* Telephone Encounter - Wali Doll - 11/09/2022 9:47 AM EST SENT PATIENTS RX TO PREFERRED LOCATION [facility] [phone] Wali Doll YOUTH DIRECTOR documented in this encounterTuscarawas Hospital01-03-2023 Miscellaneous Notes* Telephone Encounter - Regina Philippe - 11/08/2022 11:15 AM EST Per Soumya in provider services at [facility]. No prior auth is needed,coverage is active, patient can proceed with Smart Pill. Placed a new referral. Call Ref # [id number] * Telephone Encounter - Regina Philippe - 11/02/2022 3:51 PM EST Spoke with patient. Smart Pill is a covered benefit. Sent email to Smart Pill tower supervisor and PFA to assist in scheduling Smart [...] procedure, she can call Earlene Martin at [phone]. documented in this encounterTuscarawas Hospital12-19-2022 Miscellaneous Notes* Telephone Encounter - Steffi Ross LPN - 10/24/2022 2:09 PM EST Thank you, let patient know, smart pill is being adressed and patient should receive a call once they have an answer. Steffi Ross LPN * Telephone Encounter - Steffi Ross LPN - 10/24/2022 1:12 PM EST Please advise Thank you Steffi Ross LPN * Telephone Encounter - Nati Martinez - 10/24/2022 9:52 AM EST Mary Leal [...] calling: self Call patient at: at home [phone] (home) [phone] (cell) Closing statement: Symptom Call: Thank you for [facility], your call is very important. A nurse will call in approximately 2-4 hours during business hours. If this is an emergency, please contact 911. Nati Martinez documented in this encounterTuscarawas Hospital12-13-2022 Miscellaneous Notes* Telephone Encounter - Brooklyn Valle LPN - 10/18/2022 2:43 PM EST Requested Prescriptions Pending Prescriptions Disp Refills Dexlansoprazole 60 mg CpDM [Pharmacy Med Name: DEXLANSOPRAZOLE DR 60 MG CAP] 30 capsule 5 Sig: take 1 capsule by mouth before breakfast Patient last seen 10/11/2022 documented in this encounterTuscarawas Hospital12-12-2022 NotePROCEDURE: XR FOOT RT MIN 3 [...] Electronically authenticated by: NICKI DACOSTA Date: 2022-10-17 18:06[facility]12-12-2022 NotePROCEDURE: XR FOOT RT MIN 3 [...] Electronically authenticated by: NICKI DACOSTA Date: 2022-10-17 18:06[facility]12-12-2022 Miscellaneous Notes* Telephone Encounter - Wali Doll - 10/17/2022 9:17 AM EST Faxed order, office notes, demographics, and sleep study to: [facility] name: [facility] fax: [phone] SAIMA ph: ALSO SENT A REQUEST FOR PTS PSG FROM [facility] IN [place] documented in this encounterTuscarawas Hospital12-06-2022 History of Present illness Narrative* Isra [...] (FLONASE) 50 mcg/actuation nasal spray Use 1 Wiggins in each nostril once daily. carBAMazepine XR (TEGRETOL XR) 400 mg 12 hr tablet Take 400 mg by mouth q 12 HR. ARIPiprazole (ABILIFY) 30 mg tablet Take 30 mg by mouth once daily. albuterol HFA (PROVENTIL HFA, VENTOLIN HFA) 90 mcg/actuation inhaler inhale 2 puffs by mouth INTO THE LUNGS every 4 hours if needed qccculfiicv-keyspzxhf-fnikkzlt (TRELEGY ELLIPTA) 100-62.5-25 mcg Inhale 1 Puff [...] no edema RESPIRATORY: No dyspnea : neg GUEST SERVICES LEAD: neg The remainder of the review of [...] Isra Masters DO 10/11/2022 documented in this encounterTuscarawas Hospital12-05-2022 Evaluation note* Encounter Date Diagnosis Assessment [...] for rotator cuff healing or recurrent tear [facility] Other 12-01-2022 Evaluation note* Encounter Date Diagnosis [...] note writ ten by Wanda Yang LPN, Weld Inspector. Edited and approved by Dr. Beto Harris MD. [facility] Other 11-17-2022 Evaluation note* Encounter Date Diagnosis [...] educated regarding the risks and benefits of buttermaker helper opioid use. She understands the associated risks [...] note writ ten by Lupillo Amezquita MA, Weld Inspector. Edited and approved by Dr. Beto Harris MD. [facility] Other 11-17-2022 Evaluation note* Encounter Date Diagnosis Assessment Notes Treatment Notes Treatment Clinical Notes Sep, Lumbosacral spondylosis without myelopathy (ICD-10 - M47.817) [facility] Other 11-09-2022 Evaluation note* Encounter Date Diagnosis [...] note writ ten by Wanda Yang LPN, Weld Inspector. Edited and approved by Dr. Beto Harris MD. [facility] Other 09-21-2022 NotePROCEDURE: XR ANKLE RT MIN 3 VIEWS, XR FOOT RT MIN 3 VIEWS COMPARISON: 01/06/2021 HISTORY: Pain of right ankle joint FINDINGS: BONES:Remote osteotomy head of the first metatarsal fixed with a single screw. No acute fracture or dislocation. SOFT TISSUES:Negative. No visible soft tissue swelling. EFFUSION:None visible. OTHER: Negative. IMPRESSION: No acute abnormality Electronically authenticated by: NICKI DACOSTA Date: 2022-07-27 19:[address] [place], [place] [address]09-21-2022 NotePROCEDURE: XR ANKLE RT MIN 3 VIEWS, XR FOOT RT MIN 3 VIEWS COMPARISON: 01/06/2021 HISTORY: Pain of right ankle joint FINDINGS: BONES:Remote osteotomy head of the first metatarsal fixed with a single screw. No acute fracture or dislocation. SOFT TISSUES:Negative. No visible soft tissue swelling. EFFUSION:None visible. OTHER: Negative. IMPRESSION: No acute abnormality Electronically authenticated by: NICKI DACOSTA Date: 2022-07-27 19:[facility]09-20-2022 Miscellaneous Notes* Telephone Encounter - Silvia Ybarra - 07/26/2022 2:56 PM EDT PA for Dexlansoprazole initiated electronically. Awaiting response [employer] ID# [id number] * Telephone Encounter - Tracy Khan PSS - 07/26/2022 1:43 PM EDT Patient needs a prior authorization Medication Order name: Dexlansoprazole 60 mg CpDM Medication: DEXLANSOPRAZOLE 60 MG CAPSULE,BIPHASE DELAYED RELEASE [[id number]] Dispense as Written: No documented in this encounterTuscarawas Hospital09-20-2022 History of Present illness Narrative* Mary [...] in the AM and 4 mg PM rtrdacjjgcb-vlpvemnwq-autvgten (TRELEGY ELLIPTA) 100-62.5-25 mcg Inhale 1 Puff [...] (FLONASE) 50 mcg/actuation nasal spray Use 1 Wiggins in each nostril once daily. carBAMazepine XR [...] which included preparing to see the patient, ygvg-fp-ksiw patient care, completing clinical documentation, obtaining and/or reviewing separately obtained history, performing a medically appropriate examination, counseling and educating the pat ient/family/caregiver, ordering medications, tests, or procedures, and care coordination (not separately reported). Mary Obrien MD Colorectal Surgery documented in this encounterTuscarawas Hospital09-20-2022 Nurse Note* Re Sierra MA - 07/26/2022 11:12 AM EDT What is the reason for your visit today? Established patient presents for post op. Who is your referring physician? Are you having poor oral intake? NO Have you had unintentional weight loss of 15 lbs/7 Kg in the last 3-6 months? NO Bowels: Wound: none Temperature: No Drains: No documented in this encounterTuscarawas Hospital08-04-2022 NotePROCEDURE: In the coronal projection, without [...] and signed by Quinton Carson on 06/09/2022 1113NoWest[facility] Hlrlcogosh19-11-3108 Miscellaneous Notes* Telephone Encounter - Raquel Mullen - 06/07/2022 3:34 PM EDT Patient [facility]. The previous was sent to [...] process accordingly. Raquel Mullen documented in this encounterTuscarawas Hospital07-21-2022 Evaluation note* Encounter Date Diagnosis Assessment [...] note writ ten by Lupillo Amezquita MA, Weld Inspector. Edited and approved by Dr. Beto Harris MD. [facility] Other 07-05-2022 Evaluation note* Encounter Date Diagnosis [...] instructions given in writing by [facility] document. [facility] Other 06-28-2022 Miscellaneous Notes* Telephone Encounter - [...] concerns at this time. documented in this encounterTuscarawas Hospital06-21-2022 Miscellaneous Notes* Telephone Encounter - Jet [...] procedure on 03/28. Thanks! documented in this encounterTuscarawas Hospital06-17-2022 History of Present illness Narrative* Jessi [...] (FLONASE) 50 mcg/actuation nasal spray Use 1 Wiggins in each nostril once daily. carBAMazepine XR [...] THE LUNGS every 4 hours if needed xwncvxsuade-cqeesrjrx-klihvkwu (TRELEGY ELLIPTA) 100-62.5-25 mcg Inhale 1 Puff [...] Sheets APRN.KWESI Colorectal Surgery documented in this encounterTuscarawas Hospital06-17-2022 Nurse Note* Mary Mena MA - 04/22/2022 12:06 PM EDT .What is the reason for your visit today? Post op Who is your referring physician? Self Are you having poor oral intake? NO Have you had unintentional weight loss of 15 lbs/7 Kg in the last 3-6 months? NO Bowels: regular Wound: none Temperature: No Drains: No documented in this encounterTuscarawas Hospital06-02-2022 Miscellaneous Notes* Telephone Encounter - Rachael - 04/07/2022 12:35 AM EDT Record ID: [id number] Patient name: Mary Leal Date: April [birth year], [...] likely is it that you would recommend [facility] to a friend or family member? -> likely Please tell me what you liked best about your hospital experience: -> The nurses documented in this encounterTuscarawas Hospital05-31-2022 NoteHNO ID: [id number] Author: Pravin Ladd MD Service: Colorectal Author Type: Resident Type: Progress Notes Filed: 04/05/2022 7:52 AM Note Text: COLORECTAL SURGERY PROGRESS NOTE Mary Leal [id number] ASSESSMENT AND PLAN Mary Leal is a [...] - General Pravin Ladd MD General Surgery residentNew England Baptist HospitalPfctmjdh69-48-4715 NoteHNO ID: [id number] Author: Nita Lamas MD Service: Colorectal Author Type: Fellow Type: Progress Notes Filed: 04/04/2022 9:40 AM Note Text: COLORECTAL SURGERY PROGRESS NOTE Mary Leal [id number] ASSESSMENT AND PLAN Mary Leal is a [...] Nita Lamas MD Colorectal Fellow 04/04/2022 9:40 [facility]05-29-2022 NoteHNO ID: [id number] Author: Pravin Ladd MD Service: Colorectal Author Type: Resident Type: Progress Notes Filed: 04/03/2022 8:03 AM Note Text: COLORECTAL SURGERY PROGRESS NOTE Mary Leal [id number] ASSESSMENT AND PLAN Mary Leal is a [...] - General Pravin Ladd MD General Surgery ResidentNew England Baptist HospitalKaerqmyc29-25-9613 NoteHNO ID: [id number] Author: Nancy Cadena MD Service: Colorectal Author Type: Resident Type: Progress Notes Filed: 04/02/2022 8:34 AM Note Text: COLORECTAL SURGERY PROGRESS NOTE Mary Leal [id number] ASSESSMENT AND PLAN Mary Leal is a [...] Nancy Cadena MD General Surgery Resident, PGY-2 [id number] [id number] NoteHNO ID: [id number] Author: Nancy Cadena MD Service: Colorectal Author [...] 2022 COLORECTAL SURGERY PROGRESS NOTE Mary Leal [id number] ASSESSMENT AND PLAN Mary Leal is a [...] Nancy Cadena MD General Surgery Resident, PGY-2 [id number] [id number] NoteHNO ID: [id number] Author: Yolanda Lamb MD Service: Colorectal Author Type: Resident Type: Progress Notes Filed: 03/31/2022 9:08 AM Note Text: COLORECTAL SURGERY PROGRESS NOTE Mary Leal [id number] ASSESSMENT AND PLAN Mary Leal is a [...] RESECTION AND ANASTOMOSIS - General Yolanda Lamb MDNew England Baptist HospitalYpqkngyh54-81-6686 NoteHNO ID: [id number] Author: Pravin Ladd MD Service: Colorectal Author [...] 2022 COLORECTAL SURGERY PROGRESS NOTE Mary Ornelasgs [id number] ASSESSMENT AND PLAN Maryjonathan Leal is a 51 year old female with PMHx Asthma, HTN, BPD, Dyslipidemia and colonic inertia who is now s/p Hand assisted TAC, EI takedown + OANH 03/28 - D/C DEFENCE INTELLIGENCE ANALYST - Advance to GI soft diet - [...] RESECTION AND ANASTOMOSIS - General Pravin Ladd MDNew England Baptist HospitalZonhmqgp55-29-3646 NoteHNO ID: [id number] Author: ELIZABETH Dias Service: Care Management Author Type: Bit Sander Type: Care Mgt Initial Assessment Filed: 03/29/2022 [...] time ADVANCE DIRECTIVES Current Advance Directive: None Detail Manager Attempted to Assist with AD Completion: Yes [...] Housing Stability: Not on file PATIENT SCREEN 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 Stated Goals: To be cured/healed Under the [...] March 29, 2022 TIME: 3:45 PM PHONE: [phone] Dkykdpjm60-72-7441 NoteHNO ID: [id number] Author: Pravin Ladd MD Service: Colorectal Author Type: Resident Type: Progress Notes Filed: 04/01/2022 5:50 AM Note Text: COLORECTAL SURGERY PROGRESS NOTE Mary Leal [id number] ASSESSMENT AND PLAN Mary Leal is a 51 year old female with PMHx Asthma, HTN, BPD, Dyslipidemia and colonic inertia who is now s/p Hand assisted TAC, EI takedown + OANH 03/28 - DEFENCE INTELLIGENCE ANALYST for pain control - Magnesium replacement for [...] RESECTION AND ANASTOMOSIS - General Pravin Ladd MDNew England Baptist HospitalEfmwldnv81-28-7246 NoteHNO ID: [id number] Author: Nathanael Craig DO Service: Anesthesiology Author Type: Anesthesiologist Type: Anesthesia Procedure Notes Filed: 03/28/2022 4:16 PM Note Text: ANESTHESIOLOGY PROCEDURE NOTE Peripheral Nerve Block General Information Procedure Start Time/Medication Administration: 03/28/2022 3:50 PM Procedure End time: 03/28/2022 3:55 PM Patient location during procedure: OR Timeout Performed Pre-procedure: timeout performed Consent Obtained: Yes 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: care boarder steam and arm band Reason for block: post-op [...] 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 and care boarder steam Reason for block: post-op pain management/at surgeon's [...] March 28, 2022 TIME: 4:14 PM CSN: [id number] NoteHNO ID: [id number] Author: Adriana Stanley APRN.DIRECTOR OF DISTRIBUTION Service: Anesthesiology Author Type: Nurse Quality Reviewer Type: Anesthesia Procedure Notes Filed: 03/28/2022 9:49 AM Note Text: ANESTHESIOLOGY PROCEDURE NOTE Airway General Information Procedure Start Time/Medication Administration: 03/28/2022 9:21 AM Patient location during procedure: OR 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, care boarder steam and patient Staffing DIRECTOR OF DISTRIBUTION: Adriana Stanley APRN.DIRECTOR OF DISTRIBUTION Performed by: BECCA Indications and Patient Condition [...] at approach: 1 Airway not difficult SIGNATURE: Adriana Stanley APRN.CRNA PATIENT NAME: Mary Leal DATE: March 28, 2022 TIME: 9:49 AM CSN: [id number] NoteHNO ID: [id number] Author: Adriana Stanley APRN.DIRECTOR OF DISTRIBUTION Service: Anesthesiology Author Type: Nurse Quality Reviewer Type: Anesthesia Procedure Notes Filed: 03/28/2022 9:49 [...] Location: Hand Imaging Guidance Used: No SIGNATURE: Adriana Stanley APRN.CRNA PATIENT NAME: Mary Leal DATE: March 28, 2022 TIME: 9:48 AM CSN: [id number] Miscellaneous Notes* Telephone Encounter - Jet Wong [...] colon. Would like a call back at [phone] documented in this encounterTuscarawas Hospital05-10-2022 Miscellaneous Notes* Telephone Encounter - Jennie Moreno RN - 03/15/2022 2:39 PM EDT Outside medical record EGD H Pylori biopsy received by fax. Scanned into [employer] under scanned documents. Hard copy handed to Dr. Masters. Per Dr Masters- please call patient and let her know the H Pylori biopsy is negative. Called patient . Message relayed. No questions at this time. * Telephone Encounter - Karthikeyan Turk RN - 03/15/2022 2:21 PM EDT Called [facility] and I was transferred to medical records. Requesting a cover sheet with the request result be faxed to them at [phone]. H Pylori result request faxed with confirmation. * Telephone Encounter - Karthikeyan Turk RN - 03/15/2022 2:21 PM EDT Images from the original note were not included. DO Leo Mariano Dd Clinical Pool Please contact [facility] [phone] to see if the H pylori biopsy is back yet from her EGD there documented in this encounterTuscarawas Hospital05-10-2022 Evaluation note* Encounter Date Diagnosis Assessment [...] note writ ten by Wanda Yang LPN, Weld Inspector. Edited and approved by Dr. Beto Harris MD. [facility] Other 05-10-2022 Miscellaneous Notes* Telephone Encounter - Silvia Amada - 03/15/2022 1:24 PM EDT PA for Dexilant renewal initiated through [employer]. Awaiting response ID# [id number] Rx BIN [id number] Rx PCN TOMIDOH Rx Grp [id number] documented in this encounterTuscarawas Hospital05-10-2022 Miscellaneous Notes* Telephone Encounter - Jet Wong RN - 03/15/2022 9:28 AM EDT She called the office with complaints of dark red blood in her ostomy bag for the last 2 weeks. [place] when it started. She had an EGD in [place] that showed gastritis. She followed up with [...] concerns at this time. documented in this encounterTuscarawas Hospital05-10-2022 History of Present illness Narrative* Isra [...] seem be musculoskeletal in nature.EGD done in [facility] showed some gastritis and duodenitis. Current Outpatient [...] (FLONASE) 50 mcg/actuation nasal spray Use 1 Wiggins in each nostril once daily. carBAMazepine XR [...] THE LUNGS every 4 hours if needed qhjpwysvwgu-hnqvsjuuv-cnywowdu (TRELEGY ELLIPTA) 100-62.5-25 mcg Inhale 1 Puff [...] no edema RESPIRATORY: No dyspnea : neg GUEST SERVICES LEAD: neg The remainder of the review of [...] Isra Masters DO 03/15/2022 documented in this encounterTuscarawas Hospital05-09-2022 Instructions* Patient Instructions* Urmila Alexander APRN.NET WASHER - 03/14/2022 10:43 AM EDT PATIENT PREOPERATIVE INSTRUCTIONS Mary Obrien MD has scheduled you for your procedure at [facility]: [phone] --[id number] [address]. Please check in on the1st floor at [...] Procedures: - YOU MUST HAVE A RESPONSIBLE STAFF DEVELOPMENT EDUCATOR TAKE YOU HOME. A METAL BUMPER OR FIBER WORKER CANNOT BE MADE A RESPONSIBLE STAFF DEVELOPMENT EDUCATOR. - We recommend that a responsible person [...] Advance Directive, please fax a copy to [phone] or email to for it to be [...] your chart that day. documented in this encounterTuscarawas Hospital05-09-2022 History and physical note * Urmila [...] fevers. Neurological: No history of TIA's, stroke, WOUND/OSTOMY NURSE tumor, impaired sensorium, hemiplegia, paraplegia orquadraplegia. No [...] > 1 time per night or hematuria. GUEST SERVICES LEAD: Negative for abnormal vaginal bleeding, abnormal vaginal [...] every 4 hours if needed Taking Yes qsurzlylbhc-mbksgnhay-omvyszlz (TRELEGY ELLIPTA) 100-62.5-25 mcg Inhale 1 Puff [...] (FLONASE) 50 mcg/actuation nasal spray Use 1 Wiggins in each nostril once daily. No medication [...] or any previous visit (from the past 93410 hour(s)). EKG: Assessment HTN (hypertension) Assessment: Managed [...] of difficult airway No abnormal airway history [id number] Score: Age: <65 Sex: Female Hypertension history: [...] 10:30 AM PAGER/CONTACT #: documented in this encounterT[facility]04[facility]22 Miscellaneous Notes* Telephone Encounter - Isra [...] it legit. Please advise. documented in this encounterTuscaraw[facility]04-15-2022 Instructions* Patient Instructions* Nelsy Chávez APRN.CNP - 02/18/2022 1:18 PM EDT Healing as expected from surgery. You have a pinpoint area of suture just under the vaginal epithelium surface that may need more time to fully heal. Please call the office if you would like to try vaginal estrogen cream or with any questions/concerns. documented in this encounterTuscarawas [facility]04-15-2022 History of Present illness Narrative* Nelsy Chávez APRN.NET WASHER - 02/18/2022 10:00 AM EDT Female Pelvic [...] no Pain: no Abnormal Vaginal Discharge: no GUEST SERVICES LEAD HISTORY: Last pap: cannot remember; Last mammogram: She has never had a mammogram LMP: No LMP recorded. Patient has had a hysterectomy.; Menopause n/a: Menstrual history: NA; Deliveries: I have confirmed and edited as necessary, the PFSH obtained by others. Nelsy Chávez APRN.NET WASHER Quality Analyst/Technical Writer offered: Patient declines. OBJECTIVE: There were no [...] if this helps. She is traveling to [place] to see her ailing father for two weeks and would like to wait for now to see if things resolve. She knows she can call the office if she changes her mind and would like to trial vaginal estrogen Nelsy Chávez APRN.NET WASHER documented in this encounterT[facility]aw[facility]04-08-2022 History of Present illness Narrative* Flaca Puma, [...] 15 Flaca Bartholomew PT documented in this encounterT[facility]caraw[facility]04-05-2022 Nurse Note* Re Sierra MA - [...] Temperature: No Drains: No documented in this encounterTuscarawas Hospital04-05-2022 History of Present illness Narrative* Mary [...] (FLONASE) 50 mcg/actuation nasal spray Use 1 Wiggins in each nostril once daily. carBAMazepine XR [...] THE LUNGS every 4 hours if needed flnvufsjrmd-okgqxasap-tltlcuoi (TRELEGY ELLIPTA) 100-62.5-25 mcg Inhale 1 Puff [...] medical complications of surgery including DVT/PE, PNA, NV, stroke, and . The patient understands these risks and is in agreement with proceeding. Medical Decision Making: Data Reviewed: Tests & Documents Reviewed/ordered: Review of prior notes from myself, OR, Dr. Wang Review of prior operative reports I have discussed Mary Leal's treatment plan and/or results with the patient. Mary Obrien MD Colorectal Surgery documented in this encounterTuscarawas Hospital04-05-2022 History of Present illness Narrative* Magali Mitchell APRN.NET WASHER - 02/08/2022 11:04 AM EDT Female Pelvic [...] you received about pain medications helpful? Yes Quality Analyst/Technical Writer offered:Patient declines OBJECTIVE: BP 113/76 Pulse 74 [...] understanding. Magali Mitchell APRN.KWESI documented in this encounterTuscarawas Hospital03-29-2022 Miscellaneous Notes* Telephone Encounter - Steffi Ross LPN - 02/01/2022 11:08 AM EDT [facility] 06-10[facility]21 Pharmacy and Rx request verified. Please file if appropriate. Thank you Steffi Ross LPN documented in this encounterTuscarawas Hospital03-28-2022 NoteHNO ID: [id number] Author: Newton Woodward PT Service: ? Author [...] to Home;Specialty Service Patient transferring care to: [facility] Flaca P[facility] SUBJECTIVE: Patient Reason for Visit: [...] untimed codes) : 40 Newton Woodward [facility], [facility]03-[facility] History of Present illness Narrative* Newton Woodward, PT - 01/31/2022 10:42 AM EDT Episode Visit Count: 3 Therapist That Will Oversee The Plan Of Care: [facility] Start of Care Date: 01/18/22 Onset Date: [...] to Home;Specialty Service Patient transferring care to: [facility] Flaca Bartholomew SUBJECTIVE: Patient Reason for Visit: [...] Newton Woodward PT, DPT documented in this encounterTuscarawas Hospital03-21-2022 NoteHNO ID: [id number] Author: Newton Woodward PT Service: ? Author Type: Physical Therapist Type: Progress Notes Filed: 01/24/2022 1:23 PM Note Text: Episode Visit Count: 2 Therapist That Will Oversee The Plan Of Care: [place] [facility] Start of Care Date: 01/18/22 Onset Date: 12/24/21 Plan of Care Certification Date: 01/18/22 Next Certification Due Date: 03/19/22 Patient Identified by Name and Date of : Yes REHABILITATION AND SPORTS THERAPY PHYSICAL THERAPY TREATMENT NOTE ASSESSMENT: Mary Zoya Leal tolerated the session with no issues. [...] untimed codes) : 45 Newton Woodward PT, [facility]03-[facility]22 NoteHNO ID: [id number] Author: Jessi Isaacs, PT Service: ? Author [...] Planned: 8 Planned Treatment Interventions: Therapeutic exercise (43818);Neuromuscular re-education (43150);Manual therapy (00911);Therapeutic activities (68640);Self-long term management (15811);Patient/Family/Caregiver Education PLAN FOR NEXT VISIT: PFM dynamics; biofeedback Patient demonstrates good understanding of plan of care and treatment. The above goals and plan of care were discussed and agreed upon by patient/family. Transfer of Care Due To: Closer to Home (patient to transfer in February 2022) Patient transferring care to: [facility] Flaca Bartholomew SUBJECTIVE: Mary Leal is a [...] function/quality of life. 52 (more content not included)...[facility] HospitalKifpxslo40-88-1886 NoteHNO ID: [id number] Author: Moni Munguia RN Service: Care Management Author Type: Registered Nurse Type: Care Mgt Progress Note Filed: 12/27/2021 4:17 PM Note Text: CARE MANAGEMENT DISCHARGE NOTE SERVICE DATE: 12/27/2021 SERVICE TIME: 4:14 PM LOS: 3 days Admission Date: 12/24/2021 DISCHARGE ARRANGEMENT (list agency and phone number) Discharge Arrangement: Home with Home Health Provider Name: [address] CAREGIVER ASSESSMENT: HANDOFF COMMUNICATION: Handoff to: Primary Care Physician Primary Care Physician Name/Phone: Eliceo Gómez Jr [phone] TRANSPORTATION ARRANGEMENTS: Transportation Arrangements: N/A The Pt is accepted by [address] for new ostomy care. The SOC will be within 24 to 48 hrs. The pt will be contacted directly with the SOC. The Pt verbalized agreement with this dc plan. SIGNATURE: Moni Munguia RN PATIENT NAME: Mary Leal DATE: December 27, 2021 TIME: 4:14 PM PAGER/CONTACT #: [phone] NoteHNO ID: [id number] Author: Parish Celeste DO Service: Colorectal Author [...] - Pain and nausea control -> d/c DEFENCE INTELLIGENCE ANALYST - D/c entereg - Culturelle - Continue [...] 0659 12/27/21 0700 - 12/28/21 0659 Shift 8321-0603 7385-6180 0426-4407 24 Hour Total 9242-9572 0609-4205 0581-6753 24 Hour Total INTAKE PO 60 60 PO 60 60 IV 2100 2100 Volume (mL) (lactated ringers iv infusion) 2100 2100 Shift Total 2160 2160 OUTPUT Urine 7524 997 8829 2300 200 200 Void (ml) 300 1000 1300 200 200 Output ( Indwelling Urinary Catheter 12/24/21 Call 16 Fr) 1000 1000 Emesis 0 0 Emesis (ml) 0 0 Ostomy 250 125 375 Ileostomy 1 250 125 375 # of BMs Number of BMs 0 x 0 x Shift Total 3898 188 7801 2675 200 200 Weight (kg) 82.1 82.1 82.1 82.1 82.1 82.1 82.1 82.1 Recent Labs 12/26/21 0755 12/25/21 0606 WBC -- 5.96 HB -- 11.6 HCT -- 35.2* PLT -- 271 NA 139 141 K 4.0 4.0 CHLOR 102 104 CO2 28 28 CREAT 0.62* 0.72 BUN 10 12 GLUC 71 91 CA 8.5 8.5 Parish Celeste DO General Surgery, PGY-4 [id number] After 6 pm and on the weekends please page [phone] 12-26-2021 NoteHNO ID: [id number] Author: Jenifer Ayala MD Service: Colorectal Author Type: Fellow Type: Progress Notes Filed: 12/26/2021 12:13 PM Note Text: GENERAL SURGERY PROGRESS NOTE Name: Mary Leal 12/26/2021 12:11 PM Interval Events: Patient doing well post-operatively. No acute events overnight. Tolerating CLD diet without nausea or vomiting. Stoma productive of bilious fluid + gas Pain well controlled with DEFENCE INTELLIGENCE ANALYST + oral pain medication (feels most relief from po oxycodone). Assessment and Plan: 51 year old female with pelvic organ prolapse and chronic constipation, likely slow transit but with possible component of pelvic outlet obstruction and with discordant testing. Patient underwent laparoscopic protopexy on 12/24/21 surgery was uneventful. Post-operative course has been uncompliacted. Pain control- Tylenol Gabapentin Toradol DEFENCE INTELLIGENCE ANALYST: Dilaudid, tegretol, klonopin, requip, trintellix, oxycodone Cardiac- [...] any questions or concerns page [facility] [id number] Objective Physical exam: BP 117/66 Pulse 77 [...] 0659 12/26/21 07 - 12/27/21 0659 Shift 0314-7062 6879-3292 1109-4842 24 Hour Total 2477-5172 7552-2411 8560-6147 24 Hour Total INTAKE PO 60 60 PO 60 60 IV 213 668 881 Volume (mL) (lactated ringers iv infusion) 213 668 881 Shift Total 273 668 941 OUTPUT Urine 517 665 1971 1000 Void (ml) 0 0 Output ( Indwelling Urinary Catheter 12/24/21 Call 16 Fr) 960 649 3057 1000 Emesis 0 0 Emesis (ml) 0 0 Ostomy 100 100 Ileostomy 1 100 100 # of BMs Number of BMs 0 x 0 x Shift Total 335 978 9613 1000 Weight (kg) 82.1 82.1 82.1 82.1 [...] Diagnosis Date Noted - Pelvic floor dysfunction 12/24/2021[facility]Qufpogxv79-92-7622 NoteHNO ID: [id number] Author: Sonido Owen MD Service: Colorectal Author [...] been uncompliacted. Pain control- Tylenol Gabapentin Toradol DEFENCE INTELLIGENCE ANALYST: Dilaudid, tegretol, klonopin, requip, trintellix Cardiac- Vitals: [...] Owen MD General Surgery PGY 2 Pg [phone] For any questions or concerns page [facility] [id number] Objective Physical exam: BP 111/61 Pulse 86 [...] 0659 12/25/21 0700 - 12/26/21 0659 Shift 7128-0824 7857-7041 9259-0570 24 Hour Total 5576-0412 9834-6233 7065-9318 24 Hour Total INTAKE PO 240 120 360 PO 240 120 360 IV 3100 3100 Volume (mL) (lactated ringers iv infusion) 1800 1800 Volume (mL) (lactated ringers iv infusion) 1300 1300 Shift Total 3100 896 817 5624 OUTPUT Urine 200 358 450 3405 OR Urine Output 200 200 Output ( Indwelling Urinary Catheter 12/24/21 Call 16 Fr) 300 500 800 Emesis 0 0 0 Emesis (ml) 0 0 0 Ostomy 0 0 0 Ileostomy 1 0 0 0 # of BMs Number of BMs 0 x 0 x 0 x Blood 50 50 Estimated Blood loss 50 50 Shift Total 250 999 075 2422 Weight (kg) 82.1 82.1 82.1 82.1 82.1 [...] Diagnosis Date Noted - Pelvic floor dysfunction 12/24/2021[facility]Cqrrbaxj25-87-4927 NoteHNO ID: [id number] Author: Adriana Stanley APRN.CRNA Service: Anesthesiology Author Type: Nurse Quality Reviewer Type: Anesthesia Procedure Notes Filed: 12/24/2021 8:44 [...] Location: Hand Imaging Guidance Used: No SIGNATURE: Adriana Stanley APRN.DIRECTOR OF DISTRIBUTION PATIENT NAME: Mary Leal DATE: December 24, 2021 TIME: 8:44 AM CSN: [id number] NoteHNO ID: [id number] Author: Adriana Stanley APRN.CRNA Service: Anesthesiology Author Type: Nurse Quality Reviewer Type: Anesthesia Procedure Notes Filed: 12/24/2021 8:44 AM Note Text: ANESTHESIOLOGY PROCEDURE NOTE Airway General Information Procedure Start Time/Medication Administration: 12/24/2021 8:22 AM Patient location during procedure: OR 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, care boarder steam and patient Staffing Anesthesiologist: Chayito Ojeda MD DIRECTOR OF DISTRIBUTION: Adriana Stanely APRN.DIRECTOR OF DISTRIBUTION Performed by: DIRECTOR OF DISTRIBUTION and anesthesiologist Indications and Patient Condition Preoxygenated: [...] at approach: 1 Airway not difficult SIGNATURE: Adriana Stanley APRN.DIRECTOR OF DISTRIBUTION PATIENT NAME: Mary Leal DATE: December 24, 2021 TIME: 8:43 AM CSN: [id number] Evaluation note* Encounter Date Diagnosis Assessment Notes [...] note writ ten by Lupillo Amezquita MA, Weld Inspector. Edited and approved by Dr. Beto Harris MD. [facility] Other 11-01-2021 Evaluation note* Encounter Date Diagnosis [...] note writ ten by Lupillo Amezquita MA, Weld Inspector. Edited and approved by Dr. Beto Harris MD. [facility] Other 10-14-2021 Evaluation note* Encounter Date Diagnosis [...] no improvement in 2 to 3 days. [facility] Other 10-08-2021 Evaluation note* Encounter Date Diagnosis [...] instructions given in writting by [facility] document [employer] Other 10-07-2021 Evaluation note* Encounter Date Diagnosis [...] Aug, Other chronic pain (ICD-10 - G89.29) [facility] [employer] Other 09-22-2021 Evaluation note* Encounter Date Diagnosis [...] Jul, Other chronic pain (ICD-10 - G89.29) [facility] [employer] Other 03-01-2021 Note [id number]:127Filippo [facility] 01-04-2021 NoteCystoscopy with Botox injection [...] you have a fever over 100 degrees.[facility] 11-11-2020 NoteChief Complaint Pt is [...] Dawna Marmolejo MD [address] [place] [address]- [phone] Additional Instructions: F/u in 1yr. Patient Education [...] deficit disorder Bipolar disorder (more content not included)...[facility] Comment on above:Result Comment: Electronically Signed By: Dawna Marmolejo MD\.br\Date and Time Signed: 11/11/2111:16 EST\.br\Electronically Co-Signed By: Christy Gill MA\.br\Date and Time Co-Signed: 11/11/20 12:07 [id number]:127[facility] HospitalChief complaint Narrative - Reported* MARY LEAL is being seen for an initial evaluation of. * 52-year-old female seen in cardiology consultation at the request of her primary care physician forelevated troponin while in [facility] this past spring that was associated with a GI bleed/gastritis. * Patient recently underwent large bowel resection details of which are unknown and I suspect possibly consistent with ulcerative colitis but again unknown pathology. She had a diverting colostomy with3 anastomosis performed. While in [place] with her GI bleed and primarily gastric [...] I believe minor troponin elevation in [place] was simply at small type II non- [place] troponin elevationrelated to inflammation and gastritis and [...] colectomy. She can follow-up as needed otherwise. [facility] DO Work Phone: Evaluation note* Diagnosis Pelvic floor dysfunction- Primary Pelvic muscle wasting Lack of coordination Follow-up examination after colorectal surgery Follow-up examination, following other surgery [facility] Diagnosis Gastroesophageal reflux disease, unspecified whether esophagitis present [facility] Diagnosis Follow-up examination after colorectal surgery- Primary Follow-up examination, following other surgery [facility]* Diagnosis Post-operative state- Primary Other postprocedural status Yeast infection of the skin Candidiasis of skin and nails [facility]* Diagnosis Pelvic floor dysfunction- Primary Pelvic muscle wasting Lack of coordination Follow-up examination after colorectal surgery Follow-up examination, following other surgery documented in this encounter [facility] note* Diagnosis Postoperative state- Primary Other postprocedural status Attention to ileostomy (HCC) Attention to ileostomy documented in this encounter [facility] note* Diagnosis Preop examination- Primary Preoperative [...] Attention to ileostomy documented in this encounter [facility] note* Diagnosis Gastroesophageal reflux disease, unspecified whether esophagitis present Chronic idiopathic constipation Unspecified constipation Attention to ileostomy (HCC) Attention to ileostomy documented in this encounter [facility] note* Diagnosis Follow-up examination after colorectal surgery- Primary Follow-up examination, following other surgery Pelvic floor dysfunction Pelvic muscle wasting documented in this encounter [facility] noteNo [employer] Other evaluation noteNoBathurst Resources Limited Other evaluation note* Diagnosis Follow-up examination after colorectal surgery- Primary Follow-up examination, following other surgery Periumbilical abdominal pain Abdominal pain, periumbilic Outlet dysfunction constipation Colonic inertia Other functional disorders of intestine documented in this encounter [facility] noteNo assessment information [facility] Work Phone: Evaluation note* Diagnosis Gas bloat syndrome- Primary Chronic idiopathic constipation Unspecified constipation Gastroparesis documented in this encounter [facility] note* Diagnosis Gastroesophageal reflux disease, unspecified whether esophagitis present documented in this encounter [facility] note* Diagnosis Gastroparesis- Primary documented in this encounter [facility] note* Diagnosis CHUCKIE (obstructive sleep apnea)- Primary Obstructive sleep apnea (adult) (pediatric) documented in this encounter [facility] note* Diagnosis Pre-op exam- Primary Preoperative examination, unspecified Primary hypertension Unspecified essential hypertension Mild persistent asthma without complication Unspecified asthma Gastroparesis CHUCKIE (obstructive sleep apnea) Obstructive sleep apnea (adult) (pediatric) documented in this encounter [facility] note* Diagnosis CHUCKIE (obstructive sleep apnea)- Primary Obstructive sleep apnea (adult) (pediatric) [facility] Diagnosis Chronic idiopathic constipation- Primary Unspecified constipation Nausea Nausea alone documented in this encounter [facility] note* Diagnosis Gastroesophageal reflux disease with esophagitis without hemorrhage- Primary documented in this encounter [facility] note* Diagnosis Colonic inertia- Primary Other functional disorders of intestine Pelvic floor dysfunction Pelvic muscle wasting Nausea Nausea alone Gastroparesis documented in this encounter [facility] note* Diagnosis Pylorospasm- Primary Functional dyspepsia Dyspepsia and other specified disorders of function of stomach Gastroesophageal reflux disease with esophagitis without hemorrhage documented in this encounter [facility] note* Diagnosis Gastroesophageal reflux disease, unspecified whether esophagitis present documented in this encounter [facility] note* Diagnosis CHUCKIE (obstructive sleep apnea)- Primary Obstructive sleep apnea (adult) (pediatric) documented in this encounter [facility] note* Diagnosis Pylorospasm- Primary Functional dyspepsia Dyspepsia and other specified disorders of function of stomach Gastroesophageal reflux disease with esophagitis without hemorrhage documented in this encounter [facility] note* Diagnosis Gastroparesis- Primary documented in this encounter [facility] note* Diagnosis Preop examination- Primary Preoperative examination, unspecified Nausea Nausea alone CHUCKIE (obstructive sleep apnea) Obstructive sleep apnea (adult) (pediatric) Mild persistent asthma without complication Unspecified asthma Gastroesophageal reflux disease, unspecified whether esophagitis present Gastroparesis documented in this encounter [facility] note* Diagnosis 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 Personal history of other diseases of digestive system documented in this encounter [facility] note* Diagnosis Gastroesophageal reflux disease, unspecified whether esophagitis present documented in this encounter [facility] note* Diagnosis Incomplete bladder emptying- Primary Constipation, unspecified constipation type Urinary urgency Urgency of urination Urinary frequency Nocturia documented in this encounter [facility] note* Diagnosis Upper abdominal pain- Primary Abdominal pain, other specified site documented [facility] Diagnosis Burning with urination- Primary Dysuria documented in this encounter [facility] note* Diagnosis Bety vaginitis Candidiasis of vulva and vagina documented in this encounter [facility] note* Diagnosis CHUCKIE (obstructive sleep apnea)- Primary Obstructive sleep apnea (adult) (pediatric) Pre-op testing- Primary Unspecified pre-operative examination CHUCKIE (obstructive sleep apnea) Obstructive sleep apnea (adult) (pediatric) [facility]* Diagnosis CHUCKIE (obstructive sleep apnea)- Primary Obstructive sleep apnea (adult) (pediatric) documented in this encounter [facility] note* Diagnosis Pre-op examination- Primary Preoperative examination, [...] urge Urge incontinence documented in this encounter [facility] note* Diagnosis Educational circumstances- Primary Educational circumstance Urinary urgency Urgency of urination Urinary frequency OAB (overactive bladder) Hypertonicity of bladder Urinary incontinence, urge Urge incontinence documented in this encounter [facility] note* Diagnosis Post-operative state- Primary Other postprocedural status documented in this encounter [facility] note* Diagnosis Procedure and treatment not carried out for other reasons- Primary documented in this encounter [facility] note* Diagnosis Post-operative state- Primary Other postprocedural status Vaginal burning Other specified symptom associated with female genital organs documented in this encounter [facility] note* Diagnosis Vaginal burning- Primary Other specified symptom associated with female genital organs documented in this encounter [facility]* Diagnosis Cass grade D esophagitis Early satiety Unintentional weight loss Loss of weight Gastroparesis [facility] - [facility]orted* Type Description Date [...] see above list Hospitalization History respiratory 02/2020 [facility] [employer] Other Hiskdye general Narrative - ReportedNortsourceasy Other [facility] general Narrative - Reported* Type Description Date [...] see above list Hospitalization History respiratory 02/2020 [employer] [employer] Other InstructionsNot on filedocumented in this encounter [employer] [facility] SystemInstructionsNot on filedocumented in this encounter [facility] (n[facility] Outpatient Procedure (Routine) - Pending Review Specialty Diagnoses / Procedures Referred By Gustavo salazar Referred To [facility] Diagnoses Gastroparesis Procedures CAPSULE ENDOSCOPY SMART Isra Masters DO [employer] [address] [place] [id number] [address] Referral ID Status Reason Start Date Expiration Date Visits Requested Visits Authorized [id number] Pending Review Auto-Generat ed Referral 10/11/2022 10/11/2023 1 1 [facility] Outpatient Procedure (Routine) - Pending Review Specialty Diagnoses / Procedures Referred By Gustavo salazar Referred To Contact [facility] Diagnoses Chronic idiopathic constipation Procedures SIGMOIDOSCOPY SIGMOIDOSCOPY FLX DX W/COLLJ SPEC BR/WA IF PFRMD Isra Masters DO [employer] [address] [place] [address] [facility] [place] [id number] Referral ID Status Reason Start Date Expiration Date Visits Requested Visits Authorized [id number] Pending Review Auto-Generat ed Referral 11/30/2022 11/30/2023 1 1 [facility] for referral (narrative)* Outpatient Procedure (Routine) - Pending Review Specialty Diagnoses / Procedures Referred By Contac t Referred To Contact [facility] Diagnoses Gastroparesis Procedures EGD - THERAPEUTIC, EUS, OR TUBE INTERVENTIONS ESOPHAGOGASTRODUODENOSC OPY TRANSORAL DIAGNOSTIC STOMACH SURGERY PROCEDURE [place] [address] [address] Referral ID Status Reason Start Date Expiration Date Visits Requested Visits Authorized [id number] Pending Review Auto-Generat ed Referral 01/11/2023 01/12/2024 1 1 [facility] for referral (narrative)* Outpatient Procedure (Routine) - Pending Review Specialty Diagnoses / Procedures Referred By Contac t Referred To Contact [facility] Diagnoses Incomplete bladder emptying Urinary urgency Urinary frequency Nocturia Procedures URODYNAMICS WHI COMPLX CYSTOMETRO W/VOID PRESS&URETHRAL PROFILE Nelsy Chávez APRN.[employer] [address] [place] [address] [facility] [address] [place] [address] Referral ID Status Reason Start Date Expiration Date Visits Requested Visits Authorized [id number] Pending Review Auto-Generat ed Referral 07/31/2023 07/30/2024 1 1 [facility] for referral (narrative)* Consultation (Routine) - Open Specialty Diagnoses / Procedures Referred By Contac t Referred To Contact [facility] Diagnoses Upper abdominal pain Lev Ritter APRN [employer] [address] [place] [address] [facility] [address] [place] [address] [place] [address] Referral ID Status Reason Start Date Expiration Date Visits Re quested Visits Authorized [id number] Open 08/12/2023 09/12/2024 [address] [facility] NarrativeDISCUSS OTHER OPTIONS PRIOR TO PROC[facility] [employer] Other Reuexx for visit NarrativeRECHECK CERVICAL PAIN DISCUSS PROCEDUR[facility]oresearch [facility] [employer] Other reason for visit Narrative* Outpatient Procedure (Routine) - Closed Specialty Diagnoses / Procedures Referred By Gustavo t Referred To Contact [facility] Diagnoses Gastroparesis Procedures GI TRANSIT & PRES RAVINDER WIRELESS CAPSULE W/INTERP Isra Masters DO [facility] [address] [place] [address] [facility] [address] [place] [address] Referral ID Status Reason Start Date Expiration Date Visits Re quested Visits Authorized [id number] Closed 11/08/2022 11/05/2023 1 1 [facility] Summary Purpose Family History No Family [...] FoundDocuments on File Type Date Recorded 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 Advance Directive(s) 10/13/2021 4:09 PM Advance Directive(s) 10/14/2020 8:14 AM Documents on File Type Date Recorded 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 Advance Directive(s) 10/13/2021 4:09 PM Advance Directive(s) 10/14/2020 8:14 AM Documents on File Type Date Recorded 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 Advance Directive(s) 03/21/2022 1:42 PM [...] unspecified whether esophagitis present Isra Masters DO [facility] [address] [place] [address] Referral ID Status Reason Start Date Expiration Date Visits Re quested Visits Authorized [id number] Closed 1 1 Referral ID Status Reason Start Date Expiration Date V isits Requested Visits Authorized [id number] Pending Review 1 1 Specialty Diagnoses / Procedures Referred By Contac t Referred To Contact CT IMAGING Diagnoses Periumbilical abdominal pain Procedures CT ABD/PEL W IVCON CT ABD & [place]EL[place] W/[place] [address] [place] [address] Ct Imaging Referral ID Status Reason Start Date Expiration Date Visits Requested Visits Authorized [id number] Pending Review Auto-Generat ed Referral 08/02/2022 08/25/2023 1 1 Reason BILATERAL SHOULDER P AIN Diagnosis 1 Shoulder pain (M25.5 19) Referral Organization [facility] Referring Provider First Name Beto Referring Provider Last Name Steven Referring Provider Specialty Pain Medici ne Referred Organization [facility] Referred Provider Beto Cartagena Referred Address [address] [place], [place],[address] Referred Provider Specialty Orthopedic S urgery Referral Priority Routine Referral Appointment Date 2022-10-10 General Notes Kim Manley 10:01:46 AM >patient already scheduled with [facility] 10/10/22 at 1:30pm. Sending p2p at this time Referral ID Status Reason Start Date Expiration Date Visits Re quested Visits Authorized [id number] Closed 1 1 Specialty Diagnoses / Procedures Referred By Gustavo salazar Referred To Contact Diagnoses Cass grade D esophagitis Early satiety Unintentional weight loss Gastroparesis Procedures DIAGNOSTIC UPPER ENDOSCOPY [place] ESOPHAGOGASTRODUODENOSCOPY TRANSORAL DIAGNOSTIC Padmaja Ledezma MD, PhD [address] [place] [address] Referral ID Status Reason Start Date Expiration Date V isits Requested Visits Authorized [id number] New Request 03/06/2024 03/31/2025 1 1 Chief Complaint and Reason for [...] diaphoresis with recent work-up that [facility] emergency room. Reportedly her troponins [...] of which are currently being investigated at [facility] (now her fourth GI specialist). * Last year while in [place] she had similar issues with elevated troponins in the ED and underwent heart catheterization that did not reveal any specific significant disease, details of the discharge summary are reviewed * She underwent recent stress perfusion imaging at [facility], the report is reviewed, she [...] investigate the troponin rise at [facility] however I believe this is likely a non- [place] troponin elevation, likely associated withunderlying inflammatory bowel disease. We will follow-up on a as needed basis unless further objective data come to light * Patient is a 53-year-old female who returns at the request of her primary care physician with episodic chest discomfort associated weakness, dizziness, diaphoresis with recent work-up that [facility] emergency room. Reportedly her troponins [...] of which are currently being investigated at [facility] (now her fourth GI specialist). * Last year while in [place] she had similar issues with elevated troponins in the ED and underwent heart catheterization that did not reveal any specific significant disease, details of the discharge summary are reviewed * She underwent recent stress perfusion imaging at [facility], the report is reviewed, she [...] investigate the troponin rise at [facility] however I believe this is likely a non- [place] troponin elevation, likely associated withunderlying inflammatory bowel disease. We will follow-up on a as needed basis unless further objective data come to light Additional Source Comments INFORMATION SOURCE (unrecogn ized section and content) DATE CREATED AUTHOR 07/08/2021 [facility] DATE CREATED AUTHOR AUTHOR'S ORGANIZ ATION 11/18/2021 [facility] DATE CREATED AUTHOR AUTHOR'S ORGANIZ ATION 02/01/2022 [facility] DATE CREATED AUTHOR AUTHOR'S ORGANIZ ATION 04/05/2022 [facility] DATE CREATED AUTHOR AUTHOR'S ORGANIZ ATION 09/29/2022 [facility] DATE CREATED AUTHOR AUTHOR'S ORGANIZ ATION 12/09/2022 [facility] DATE CREATED AUTHOR AUTHOR'S ORGANIZ ATION 04/16/2023 [facility] DATE CREATED AUTHOR AUTHOR'S ORGANIZ ATION 06/14/2023 [facility] DATE CREATED AUTHOR AUTHOR'S ORGANIZ ATION 08/14/2023 [facility] DATE CREATED AUTHOR AUTHOR'S ORGANIZ ATION 09/02/2023 [facility] DATE CREATED AUTHOR AUTHOR'S ORGANIZ ATION 10/27/2023 [facility] DATE CREATED AUTHOR AUTHOR'S ORGANIZ ATION 12/15/2023 [facility] DATE CREATED AUTHOR AUTHOR'S ORGANIZ ATION 01/11/2024 [facility] DATE CREATED AUTHOR AUTHOR'S ORGANIZ ATION 01/26/2024 [facility] DATE CREATED AUTHOR AUTHOR'S ORGANIZ ATION 03/16/2024 [facility] DATE CREATED AUTHOR AUTHOR'S ORGANIZ ATION 03/31/2024 [facility] DATE CREATED AUTHOR AUTHOR'S ORGANIZ ATION 04/15/2024 [facility] d[facility] Specialists [facility]IC DATE CREATED AUTHOR AUTHOR'S ORGANIZ ATION 04/19/2024 [facility] DATE CREATED AUTHOR AUTHOR'S ORGANIZ ATION 04/21/2024 [facility] Source Comments (unrecognize d section and content) In the event this informatio n is protected by the Federal Confidentiality of Alcohol and Drug Abuse Patient Records regulations: The Federal rules restrict any use of the information to criminally investigate or prosecute any alcohol or drug abuse patient.[facility] the event this information is protected by the Federal Confidentiality of Alcohol and Drug Abuse Patient Records regulations: The Federal rules restrict any use of the information to criminally investigate or prosecute any alcohol or drug abuse patient.[facility] HospitalIn the event this information is protected by the Federal Confidentiality of Alcohol and Drug Abuse Patient Records regulations: The Federal rules restrict any use of the information to criminally investigate or prosecute any alcohol or drug abuse patient.[facility] HospitalIn the event this information is protected by the Federal Confidentiality of Alcohol and Drug Abuse Patient Records regulations: The Federal rules restrict any use of the information to criminally investigate or prosecute any alcohol or drug abuse patient.[facility] HospitalIn the event this information is protected by the Federal Confidentiality of Alcohol and Drug Abuse Patient Records regulations: The Federal rules restrict any use of the information to criminally investigate or prosecute any alcohol or drug abuse patient.[facility] HospitalIn the event this information is protected by the Federal Confidentiality of Alcohol and Drug Abuse Patient Records regulations: The Federal rules restrict any use of the information to criminally investigate or prosecute any alcohol or drug abuse patient.[facility] HospitalIn the event this information is protected by the Federal Confidentiality of Alcohol and Drug Abuse Patient Records regulations: The Federal rules restrict any use of the information to criminally investigate or prosecute any alcohol or drug abuse patient.[facility] HospitalIn the event this information is protected by the Federal Confidentiality of Alcohol and Drug Abuse Patient Records regulations: The Federal rules restrict any use of the information to criminally investigate or prosecute any alcohol or drug abuse patient.[facility] HospitalIn the event this information is protected by the Federal Confidentiality of Alcohol and Drug Abuse Patient Records regulations: The Federal rules restrict any use of the information to criminally investigate or prosecute any alcohol or drug abuse patient.[facility] HospitalIn the event this information is protected by the Federal Confidentiality of Alcohol and Drug Abuse Patient Records regulations: The Federal rules restrict any use of the information to criminally investigate or prosecute any alcohol or drug abuse patient.[facility] HospitalIn the event this information is protected by the Federal Confidentiality of Alcohol and Drug Abuse Patient Records regulations: The Federal rules restrict any use of the information to criminally investigate or prosecute any alcohol or drug abuse patient.[facility] HospitalIn the event this information is protected by the Federal Confidentiality of Alcohol and Drug Abuse Patient Records regulations: The Federal rules restrict any use of the information to criminally investigate or prosecute any alcohol or drug abuse patient.[facility] HospitalIn the event this information is protected by the Federal Confidentiality of Alcohol and Drug Abuse Patient Records regulations: The Federal rules restrict any use of the information to criminally investigate or prosecute any alcohol or drug abuse patient.[facility] HospitalIn the event this information is protected by the Federal Confidentiality of Alcohol and Drug Abuse Patient Records regulations: The Federal rules restrict any use of the information to criminally investigate or prosecute any alcohol or drug abuse patient.[facility] HospitalIn the event this information is protected by the Federal Confidentiality of Alcohol and Drug Abuse Patient Records regulations: The Federal rules restrict any use of the information to criminally investigate or prosecute any alcohol or drug abuse patient.[facility] HospitalIn the event this information is protected by the Federal Confidentiality of Alcohol and Drug Abuse Patient Records regulations: The Federal rules restrict any use of the information to criminally investigate or prosecute any alcohol or drug abuse patient.[facility] HospitalIn the event this information is protected by the Federal Confidentiality of Alcohol and Drug Abuse Patient Records regulations: The Federal rules restrict any use of the information to criminally investigate or prosecute any alcohol or drug abuse patient.[facility] HospitalIn the event this information is protected by the Federal Confidentiality of Alcohol and Drug Abuse Patient Records regulations: The Federal rules restrict any use of the information to criminally investigate or prosecute any alcohol or drug abuse patient.[facility] HospitalIn the event this information is protected by the Federal Confidentiality of Alcohol and Drug Abuse Patient Records regulations: The Federal rules restrict any use of the information to criminally investigate or prosecute any alcohol or drug abuse patient.[facility] HospitalIn the event this information is protected by the Federal Confidentiality of Alcohol and Drug Abuse Patient Records regulations: The Federal rules restrict any use of the information to criminally investigate or prosecute any alcohol or drug abuse patient.[facility] HospitalIn the event this information is protected by the Federal Confidentiality of Alcohol and Drug Abuse Patient Records regulations: The Federal rules restrict any use of the information to criminally investigate or prosecute any alcohol or drug abuse patient.[facility] HospitalIn the event this information is protected by the Federal Confidentiality of Alcohol and Drug Abuse Patient Records regulations: The Federal rules restrict any use of the information to criminally investigate or prosecute any alcohol or drug abuse patient.[facility] HospitalIn the event this information is protected by the Federal Confidentiality of Alcohol and Drug Abuse Patient Records regulations: The Federal rules restrict any use of the information to criminally investigate or prosecute any alcohol or drug abuse patient.[facility] HospitalIn the event this information is protected by the Federal Confidentiality of Alcohol and Drug Abuse Patient Records regulations: The Federal rules restrict any use of the information to criminally investigate or prosecute any alcohol or drug abuse patient.[facility] HospitalIn the event this information is protected by the Federal Confidentiality of Alcohol and Drug Abuse Patient Records regulations: The Federal rules restrict any use of the information to criminally investigate or prosecute any alcohol or drug abuse patient.[facility] HospitalIn the event this information is protected by the Federal Confidentiality of Alcohol and Drug Abuse Patient Records regulations: The Federal rules restrict any use of the information to criminally investigate or prosecute any alcohol or drug abuse patient.[facility] HospitalIn the event this information is protected by the Federal Confidentiality of Alcohol and Drug Abuse Patient Records regulations: The Federal rules restrict any use of the information to criminally investigate or prosecute any alcohol or drug abuse patient.[facility] HospitalIn the event this information is protected by the Federal Confidentiality of Alcohol and Drug Abuse Patient Records regulations: The Federal rules restrict any use of the information to criminally investigate or prosecute any alcohol or drug abuse patient.[facility] HospitalIn the event this information is protected by the Federal Confidentiality of Alcohol and Drug Abuse Patient Records regulations: The Federal rules restrict any use of the information to criminally investigate or prosecute any alcohol or drug abuse patient.[facility] HospitalIn the event this information is protected by the Federal Confidentiality of Alcohol and Drug Abuse Patient Records regulations: The Federal rules restrict any use of the information to criminally investigate or prosecute any alcohol or drug abuse patient.[facility] HospitalIn the event this information is protected by the Federal Confidentiality of Alcohol and Drug Abuse Patient Records regulations: The Federal rules restrict any use of the information to criminally investigate or prosecute any alcohol or drug abuse patient.[facility] HospitalIn the event this information is protected by the Federal Confidentiality of Alcohol and Drug Abuse Patient Records regulations: The Federal rules restrict any use of the information to criminally investigate or prosecute any alcohol or drug abuse patient.[facility] HospitalIn the event this information is protected by the Federal Confidentiality of Alcohol and Drug Abuse Patient Records regulations: The Federal rules restrict any use of the information to criminally investigate or prosecute any alcohol or drug abuse patient.[facility] HospitalIn the event this information is protected by the Federal Confidentiality of Alcohol and Drug Abuse Patient Records regulations: The Federal rules restrict any use of the information to criminally investigate or prosecute any alcohol or drug abuse patient.[facility] HospitalIn the event this information is protected by the Federal Confidentiality of Alcohol and Drug Abuse Patient Records regulations: The Federal rules restrict any use of the information to criminally investigate or prosecute any alcohol or drug abuse patient.[facility] HospitalIn the event this information is protected by the Federal Confidentiality of Alcohol and Drug Abuse Patient Records regulations: The Federal rules restrict any use of the information to criminally investigate or prosecute any alcohol or drug abuse patient.[facility] HospitalIn the event this information is protected by the Federal Confidentiality of Alcohol and Drug Abuse Patient Records regulations: The Federal rules restrict any use of the information to criminally investigate or prosecute any alcohol or drug abuse patient.[facility] HospitalIn the event this information is protected by the Federal Confidentiality of Alcohol and Drug Abuse Patient Records regulations: The Federal rules restrict any use of the information to criminally investigate or prosecute any alcohol or drug abuse patient.[facility] HospitalIn the event this information is protected by the Federal Confidentiality of Alcohol and Drug Abuse Patient Records regulations: The Federal rules restrict any use of the information to criminally investigate or prosecute any alcohol or drug abuse patient.[facility] HospitalIn the event this information is protected by the Federal Confidentiality of Alcohol and Drug Abuse Patient Records regulations: The Federal rules restrict any use of the information to criminally investigate or prosecute any alcohol or drug abuse patient.[facility] HospitalIn the event this information is protected by the Federal Confidentiality of Alcohol and Drug Abuse Patient Records regulations: The Federal rules restrict any use of the information to criminally investigate or prosecute any alcohol or drug abuse patient.[facility] HospitalIn the event this information is protected by the Federal Confidentiality of Alcohol and Drug Abuse Patient Records regulations: The Federal rules restrict any use of the information to criminally investigate or prosecute any alcohol or drug abuse patient.[facility] HospitalIn the event this information is protected by the Federal Confidentiality of Alcohol and Drug Abuse Patient Records regulations: The Federal rules restrict any use of the information to criminally investigate or prosecute any alcohol or drug abuse patient.[facility] HospitalIn the event this information is protected by the Federal Confidentiality of Alcohol and Drug Abuse Patient Records regulations: The Federal rules restrict any use of the information to criminally investigate or prosecute any alcohol or drug abuse patient.[facility] HospitalIn the event this information is protected by the Federal Confidentiality of Alcohol and Drug Abuse Patient Records regulations: The Federal rules restrict any use of the information to criminally investigate or prosecute any alcohol or drug abuse patient.[facility] HospitalIn the event this information is protected by the Federal Confidentiality of Alcohol and Drug Abuse Patient Records regulations: The Federal rules restrict any use of the information to criminally investigate or prosecute any alcohol or drug abuse patient.[facility] HospitalIn the event this information is protected by the Federal Confidentiality of Alcohol and Drug Abuse Patient Records regulations: The Federal rules restrict any use of the information to criminally investigate or prosecute any alcohol or drug abuse patient.[facility] HospitalIn the event this information is protected by the Federal Confidentiality of Alcohol and Drug Abuse Patient Records regulations: The Federal rules restrict any use of the information to criminally investigate or prosecute any alcohol or drug abuse patient.[facility] HospitalIn the event this information is protected by the Federal Confidentiality of Alcohol and Drug Abuse Patient Records regulations: The Federal rules restrict any use of the information to criminally investigate or prosecute any alcohol or drug abuse patient.[facility] HospitalIn the event this information is protected by the Federal Confidentiality of Alcohol and Drug Abuse Patient Records regulations: The Federal rules restrict any use of the information to criminally investigate or prosecute any alcohol or drug abuse patient.[facility] HospitalIn the event this information is protected by the Federal Confidentiality of Alcohol and Drug Abuse Patient Records regulations: The Federal rules restrict any use of the information to criminally investigate or prosecute any alcohol or drug abuse patient.[facility] HospitalIn the event this information is protected by the Federal Confidentiality of Alcohol and Drug Abuse Patient Records regulations: The Federal rules restrict any use of the information to criminally investigate or prosecute any alcohol or drug abuse patient.[facility] HospitalIn the event this information is protected by the Federal Confidentiality of Alcohol and Drug Abuse Patient Records regulations: The Federal rules restrict any use of the information to criminally investigate or prosecute any alcohol or drug abuse patient.[facility] HospitalIn the event this information is protected by the Federal Confidentiality of Alcohol and Drug Abuse Patient Records regulations: The Federal rules restrict any use of the information to criminally investigate or prosecute any alcohol or drug abuse patient.[facility] HospitalIn the event this information is protected by the Federal Confidentiality of Alcohol and Drug Abuse Patient Records regulations: The Federal rules restrict any use of the information to criminally investigate or prosecute any alcohol or drug abuse patient.[facility] HospitalIn the event this information is protected by the Federal Confidentiality of Alcohol and Drug Abuse Patient Records regulations: The Federal rules restrict any use of the information to criminally investigate or prosecute any alcohol or drug abuse patient.[facility] HospitalIn the event this information is protected by the Federal Confidentiality of Alcohol and Drug Abuse Patient Records regulations: The Federal rules restrict any use of the information to criminally investigate or prosecute any alcohol or drug abuse patient.[facility] HospitalIn the event this information is protected by the Federal Confidentiality of Alcohol and Drug Abuse Patient Records regulations: The Federal rules restrict any use of the information to criminally investigate or prosecute any alcohol or drug abuse patient.[facility] HospitalIn the event this information is protected by the Federal Confidentiality of Alcohol and Drug Abuse Patient Records regulations: The Federal rules restrict any use of the information to criminally investigate or prosecute any alcohol or drug abuse patient.[facility] HospitalIn the event this information is protected by the Federal Confidentiality of Alcohol and Drug Abuse Patient Records regulations: The Federal rules restrict any use of the information to criminally investigate or prosecute any alcohol or drug abuse patient.[facility] HospitalIn the event this information is protected by the Federal Confidentiality of Alcohol and Drug Abuse Patient Records regulations: The Federal rules restrict any use of the information to criminally investigate or prosecute any alcohol or drug abuse patient.[facility] HospitalIn the event this information is protected by the Federal Confidentiality of Alcohol and Drug Abuse Patient Records regulations: The Federal rules restrict any use of the information to criminally investigate or prosecute any alcohol or drug abuse patient.[facility] HospitalIn the event this information is protected by the Federal Confidentiality of Alcohol and Drug Abuse Patient Records regulations: The Federal rules restrict any use of the information to criminally investigate or prosecute any alcohol or drug abuse patient.[facility] HospitalIn the event this information is protected by the Federal Confidentiality of Alcohol and Drug Abuse Patient Records regulations: The Federal rules restrict any use of the information to criminally investigate or prosecute any alcohol or drug abuse patient.[facility] HospitalIn the event this information is protected by the Federal Confidentiality of Alcohol and Drug Abuse Patient Records regulations: The Federal rules restrict any use of the information to criminally investigate or prosecute any alcohol or drug abuse patient.[facility] HospitalIn the event this information is protected by the Federal Confidentiality of Alcohol and Drug Abuse Patient Records regulations: The Federal rules restrict any use of the information to criminally investigate or prosecute any alcohol or drug abuse patient.[facility] HospitalIn the event this information is protected by the Federal Confidentiality of Alcohol and Drug Abuse Patient Records regulations: The Federal rules restrict any use of the information to criminally investigate or prosecute any alcohol or drug abuse patient.[facility] HospitalIn the event this information is protected by the Federal Confidentiality of Alcohol and Drug Abuse Patient Records regulations: The Federal rules restrict any use of the information to criminally investigate or prosecute any alcohol or drug abuse patient.[facility] HospitalIn the event this information is protected by the Federal Confidentiality of Alcohol and Drug Abuse Patient Records regulations: The Federal rules restrict any use of the information to criminally investigate or prosecute any alcohol or drug abuse patient.[facility] HospitalIn the event this information is protected by the Federal Confidentiality of Alcohol and Drug Abuse Patient Records regulations: The Federal rules restrict any use of the information to criminally investigate or prosecute any alcohol or drug abuse patient.[facility] HospitalIn the event this information is protected by the Federal Confidentiality of Alcohol and Drug Abuse Patient Records regulations: The Federal rules restrict any use of the information to criminally investigate or prosecute any alcohol or drug abuse patient.[facility] HospitalIn the event this information is protected by the Federal Confidentiality of Alcohol and Drug Abuse Patient Records regulations: The Federal rules restrict any use of the information to criminally investigate or prosecute any alcohol or drug abuse patient.[facility] HospitalIn the event this information is protected by the Federal Confidentiality of Alcohol and Drug Abuse Patient Records regulations: The Federal rules restrict any use of the information to criminally investigate or prosecute any alcohol or drug abuse patient.[facility] HospitalIn the event this information is protected by the Federal Confidentiality of Alcohol and Drug Abuse Patient Records regulations: The Federal rules restrict any use of the information to criminally investigate or prosecute any alcohol or drug abuse patient.[facility] HospitalIn the event this information is protected by the Federal Confidentiality of Alcohol and Drug Abuse Patient Records regulations: The Federal rules restrict any use of the information to criminally investigate or prosecute any alcohol or drug abuse patient.[facility] HospitalIn the event this information is protected by the Federal Confidentiality of Alcohol and Drug Abuse Patient Records regulations: The Federal rules restrict any use of the information to criminally investigate or prosecute any alcohol or drug abuse patient.[facility] HospitalIn the event this information is protected by the Federal Confidentiality of Alcohol and Drug Abuse Patient Records regulations: The Federal rules restrict any use of the information to criminally investigate or prosecute any alcohol or drug abuse patient.[facility] HospitalIn the event this information is protected by the Federal Confidentiality of Alcohol and Drug Abuse Patient Records regulations: The Federal rules restrict any use of the information to criminally investigate or prosecute any alcohol or drug abuse patient.[facility] HospitalIn the event this information is protected by the Federal Confidentiality of Alcohol and Drug Abuse Patient Records regulations: The Federal rules restrict any use of the information to criminally investigate or prosecute any alcohol or drug abuse patient.[facility] HospitalIn the event this information is protected by the Federal Confidentiality of Alcohol and Drug Abuse Patient Records regulations: The Federal rules restrict any use of the information to criminally investigate or prosecute any alcohol or drug abuse patient.[facility] HospitalIn the event this information is protected by the Federal Confidentiality of Alcohol and Drug Abuse Patient Records regulations: The Federal rules restrict any use of the information to criminally investigate or prosecute any alcohol or drug abuse patient.[facility] HospitalIn the event this information is protected by the Federal Confidentiality of Alcohol and Drug Abuse Patient Records regulations: The Federal rules restrict any use of the information to criminally investigate or prosecute any alcohol or drug abuse patient.[facility] HospitalIn the event this information is protected by the Federal Confidentiality of Alcohol and Drug Abuse Patient Records regulations: The Federal rules restrict any use of the information to criminally investigate or prosecute any alcohol or drug abuse patient.[facility] HospitalIn the event this information is protected by the Federal Confidentiality of Alcohol and Drug Abuse Patient Records regulations: The Federal rules restrict any use of the information to criminally investigate or prosecute any alcohol or drug abuse patient.[facility] HospitalIn the event this information is protected by the Federal Confidentiality of Alcohol and Drug Abuse Patient Records regulations: The Federal rules restrict any use of the information to criminally investigate or prosecute any alcohol or drug abuse patient.[facility] Reason for Visit (unrecogniz ed section and content) Reason Comments Physical Therapy Specialty Diagnoses / Procedures Referred By Gustavo t Referred To Contact [facility] Diagnoses Follow-up examination after colorectal surgery Procedures CONSULT TO PHYSICAL THERAPY PHYSICAL THERAPY EVALUATION HIGH COMPLEX [address] [place] [address] [place] [address] [facility] [address] [place] [address] Referral ID Status Reason Start Date Expiration Date Visits Requested Visits Authorized [id number] Authorized Auto-Generat ed Referral 01/04/2022 11/05/2022 30 30 Reason Comments Refill Request dexlansoprazole Reason Comments Established Patient Follow-Up Reason Comments Post Op Reason Comments Established Patient Reason Comments Appointment for script refill Reason Comments Gastroparesis Reason Comments Fur Mixer - Other Reason Comments Medication 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 PA [...] ESOPHAGUS DOUBLE CONTRAST [place] [address] Xr Imaging Referral ID Status Reason Start Date Expiration Date V isits Requested Visits Authorized [id number] Closed Auto-Generate d Referral 11/17/2022 12/17/2023 1 [...] ABD & PEL[place] W/[place] [address] [place] [address] Ct Imaging Referral ID Status Reason Start Date Expiration Date V isits Requested Visits Authorized [id number] Closed Auto-Generate d Referral 07/28/2022 11/05/2022 2 2 Reason Comments Urinary Retention Reason Comments Abdominal Pain Reason Comments Med Change Request Reason Comments Question Reason Comments Post-op Inspire Implant Reason Comments Anesthesia Consult Urinary urgency, Uri nary frequency, OAB (overactive bladder) and Urinary incontinence, urge Reason Onset Date Comments Pre-Op Teaching 01/22/2024 Reason Comments Patient Left Without Being Seen Reason Comments Post-Op Visit Specialty Diagnoses / Procedures Referred By Gustavo t Referred To Contact Diagnoses Cass grade D esophagitis Early satiety Unintentional weight loss Gastroparesis Procedures DIAGNOSTIC UPPER ENDOSCOPY IL ESOPHAGOGASTRODUODENOSCOPY TRANSORAL DIAGNOSTIC Padmaja Ledezma MD, PhD [address] [place] [address] Referral ID Status Reason Start Date Expiration Date V isits Requested Visits Authorized [id number] New Request 03/06/2024 03/31/2025 1 1 Care Teams (unrecognized sec tion and content) Team Status: Active Member Role Status Dates Shannon Gómez DO Primary Care Provider Active Team Status: Inactive Member Role Status Dates Shannon Gómez DO Primary Care Provider Active Niecy Duron PA-C Attending Provider Active 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 [address] [place] [address] PCP - General Family Practice 10/14/20 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 [address] [place] [address] PCP - General Family Practice 10/14/20 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 [address] [place] [address] PCP - General Family Practice 10/14/20 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 [address] [place] [address] PCP - General Family Practice 10/14/20 Rescue Boat Operator Relationship Specialty Start Date End Date Dalia Eliceo Lugo Jr. [address] [place] [address] PCP - General Family Practice 10/14/20 Rescue Boat Operator Relationship Specialty Start Date End Date Hernandeztomasa Eliceo Lugo Jr. [address] [place] [address] PCP - General Family Practice 10/14/20 Gwendolyn Stroud [address] [place] [address] Family Practice 03/14/22 Rescue Boat Operator Relationship Specialty Start Date End Date Dalia Eliceo Lugo Jr. [address] [place] [address] PCP - General Family Practice 10/14/20 Gwendolyn Stroud [address] [place] [address] Family Practice 03/14/22 Rescue Boat Operator Relationship Specialty Start Date End Date Dalia Eliceo Lugo Jr. [address] [place] [address] PCP - General Family Practice 10/14/20 Gwendolyn Stroud [address] [place] [address] Family Practice 03/14/22 Rescue Boat Operator Relationship Specialty Start Date End Date HernandezEliceo randolph Jr. [address] [place] [address] PCP - General Family Practice 10/14/20 Gwendolyn Stroud [address] [place] [address] Family Practice 03/14/22 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 [address] [place] [address] PCP - General Family Practice 10/14/20 Gwendolyn Stroud [address] [place] [address] Family Practice 03/14/22 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 [address] [place] [address] PCP - General Family Practice 10/14/20 Gwendolyn Stroud [address] [place] [address] Family Practice 03/14/22 Rescue Boat Operator Relationship Specialty Start Date End Date Eliceo Gómez Parish [address] [place] [address] PCP - General Family Practice 10/14/20 Gwendolyn Stroud, NET WASHER Family Practice 03/14/22 Rescue Boat Operator Relationship Specialty Start Date End Date HernandezEliceo randolph Parish [address] [place] [address] PCP - General Family Practice 10/14/20 Gwendolyn Stroud, NET WASHER Family Practice 03/14/22 Rescue Boat Operator Relationship Specialty Start Date End Date StephonEliceo vilchis Parish [address] [place] [address] PCP - General Family Practice 10/14/20 Gwendolyn Stroud, NET WASHER Family Practice 03/14/22 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 [address] [place] [address] PCP - General Family Practice 10/14/20 Gwendolyn Stroud, NET WASHER Family Practice 03/14/22 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 [address] [place] [address] PCP - General Family Medicine 10/14/20 Gwendoyln Stroud, NET WASHER Family Medicine 03/14/22 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 [address] [place] [address] PCP - General Family Medicine 10/14/20 Gwendolyn Stroud, NET WASHER Family Medicine 03/14/22 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 [address] [place] [address] PCP - General Family Medicine 10/14/20 Gwendolyn Stroud, NET WASHER Family Medicine 03/14/22 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 [address] [place] [address] PCP - General Family Medicine 10/14/20 Gwendolyn Stroud, NET WASHER Family Medicine 03/14/22 Team Status: Inactive Member Role Status Dates Shannon Gómez DO Primary Care Provider Active Beto Harris MD Attending Provider Active 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 [address] [place] [address] PCP - General Family Medicine 10/14/20 Gwendolyn Stroud CNP [address] [place] [address] Family Medicine 03/14/22 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 [address] [place] [address] PCP - General Family Medicine 10/14/20 Gwendolyn Stroud CNP [address] [place] [address] Family Medicine 03/14/22 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 [address] [place] [address] PCP - General Family Medicine 10/14/20 Gwendolyn Stroud CNP [address] [place] [address] Family Medicine 03/14/22 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 [address] [place] [address] PCP - General Family Medicine 10/14/20 Gwendolyn Stroud CNP [address] [place] [address] Family Medicine 03/14/22 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 [address] [place] [address] PCP - General Family Medicine 10/14/20 Gwendolyn Stroud CNP [address] [place] [address] Family Medicine 03/14/22 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 [address] [place] [address] PCP - General Family Medicine 10/14/20 Gwendolyn Stroud CNP [address] [place] [address] Family Medicine 03/14/22 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 [address] [place] [address] PCP - General Family Medicine 10/14/20 Gwendolyn Stroud CNP [address] [place] [address] Family Medicine 03/14/22 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 [address] [place] [address] PCP - General Family Medicine 10/14/20 Gwendolyn Stroud CNP [address] [place] [address] Family Medicine 03/14/22 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 [address] [place] [address] PCP - General Family Medicine 10/14/20 Gwendolyn Stroud, NET WASHER [address] [place] [address] Family Medicine 03/14/22 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 [address] [place] [address] PCP - General Family Medicine 10/14/20 Gwendolyn Stroud, NET WASHER [address] [place] [address] Family Medicine 03/14/22 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 [address] [place] [address] PCP - General Family Medicine 10/14/20 Gwendolyn Stroud, NET WASHER [address] [place] [address] Family Medicine 03/14/22 Team Status: Inactive Member Role Status Henrietta Gómez DO Primary Care Provider Active Beto Cartagena MD Attending Provider Active 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 [address] [place] [address] PCP - General Family Medicine 10/14/20 Gwendolyn Stroud, NET WASHER [address] [place] [address] Family Medicine 03/14/22 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 [address] [place] [address] PCP - General Family Medicine 10/14/20 Gwendolyn Stroud, NET WASHER [address] [place] [address] Family Medicine 03/14/22 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 [address] [place] [address] PCP - General Family Medicine 10/14/20 Gwendolyn Stroud CNP [address] [place] [address] Family Medicine 03/14/22 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 [address] [place] [address] PCP - General Family Medicine 10/14/20 Gwendolyn Stroud CNP [address] [place] [address] Family Medicine 03/14/22 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 [address] [place] [address] PCP - General Family Medicine 10/14/20 Gwendolyn Stroud CNP [address] [place] [address] Family Medicine 03/14/22 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 [address] [place] [address] PCP - General Family Medicine 10/14/20 Gwendolyn Stroud CNP [address] [place] [address] Family Medicine 03/14/22 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 [address] [place] [address] PCP - General Family Medicine 10/14/20 Gwendolyn Stroud, KWESI [address] [place] [address] Family Medicine 03/14/22 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 [address] [place] [address] PCP - General Family Medicine 10/14/20 Gwendolyn Stroud CNP [address] [place] [address] Family Medicine 03/14/22 Team Status: Inactive Member Role Status Henrietta Gómez , DO Primary Care Provider Active Anibal Valle , DO Emergency Provider Active 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 [address] [place] [address] PCP - General Family Medicine 10/14/20 Gwendolyn Stroud CNP [address] [place] [address] Family Medicine 03/14/22 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 [address] [place] [address] PCP - General Family Medicine 10/14/20 Gwendolyn Stroud CNP [address] [place] [address] Family Medicine 03/14/22 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 [address] [place] [address] PCP - General Family Medicine 10/14/20 Gwendolyn Stroud CNP [address] [place] [address] Family Medicine 03/14/22 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, DO [address] [place] [address] PCP - General Family Medicine 10/14/20 Gwendolyn Stroud CNP [address] [place] [address] Family Medicine 03/14/22 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, [address] [place] [address] PCP - General Family Medicine 10/14/20 Gwendolyn Stroud, KWESI [address] [place] [address] Family Medicine 03/14/22 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, DO [address] [facility] [place] [address] PCP - General Family Medicine 12/11/19 Team Status: Inactive Member Role Status Henrietta Gómez DO Primary Care Provider Active Start: November 23, 2023 End: November 23, 2023 Eagle Vazquez DO Attending Provider Active Start : November 23, 2023 End: November 23, 2023 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, DO [address] [place] [address] PCP - General Family Medicine 12/11/19 [facility] [address] [place] [phone] (Work) Consulting Physician Behavioral Health 12/20/23 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, DO [address] [place] [address] PCP - General Family Medicine 10/14/20 Gwendolyn Stroud, KWESI [address] [place] [address] Family Medicine 03/14/22 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, DO [address] [place] [address] PCP - General Family Medicine 12/11/19 [place] [phone] (Work) Consulting Physician Behavioral Health 12/20/23 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, DO [address] [place] [phone] PCP - General Family Medicine 10/14/20 Gwendolyn Stroud, NET WASHER [address] [place] [phone] Family Medicine 03/14/22 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, DO [address], [id number] [place] [address] PCP - General Family Medicine 12/11/19 Jenna Butler [address] Consulting Physician Behavioral Health 12/20/23 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, DO [address] [place] [address] PCP - General Family Medicine 10/14/20 Gwendolyn Stroud, NET WASHER [address] [place] [address] Family Medicine 03/14/22 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, DO [address] [place] [address] PCP - General Family Medicine 10/14/20 Gwendolyn Stroud, NET WASHER [address] [place] [address] Family Medicine 03/14/22 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, DO [address] [place] [address] PCP - General Family Medicine 10/14/20 Gwendolyn Stroud, NET WASHER [address] [place] [address] Family Medicine 03/14/22 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, DO [address] [place] [address] PCP - General Family Medicine 10/14/20 Gwendolyn Stroud CNP [address] [place] [phone] [facility] 03/14/22 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, DO [address] [place] [phone] PCP - General [facility] 10/14/20 Gwendolyn Stroud CNP [address] [place] [phone] [facility] 03/14/22 Rescue Boat Operator Relationship Specialty Start Date End Date Shannon Gómez, [address] [facility] [place] [address] PCP - General [facility] 11/14/23 Goals (unrecognized section and content) Goals may be documented in a n alternate section Scheduled Active and Recently Administ ered Medications (unrecognized section and content) Medication Order 08/10/2023 08/11/2023 08/12/2023 Acetaminophen (OFIRMEV) IVPB 1,000 mg (COMPLETED) 1,000 mg, Intravenous, Administer over 15 Minutes, On 08/12/23 at 0632, ONCE, 1 dose 0614 (New Bag - Prov ider: Jaren Lopez, MAKI)0633 (Stopped - Provider: Monserrat Scales RN) aluminum-magnesium hydroxide 200-200 MG/5ML suspension 30 mL (COMPLETED)(Linked Group 1) 30 mL, Oral, ONCE, 1 dose, On 08/12/23 at 0738 0734 (Given - Provid er: Avelino Scott RN) Famotidine (PF) (PEPCID) injection 20 mg (COMPLETED) 20 mg, IV Push, Administer over 2 Minutes, ONCE, 1 dose, On 08/12/23 at 7137 3917 (Given - Provid er: Jaren Lopez RN) hyoscyamine (LEVSIN) 0.125 MG/5ML elixir 250 [...] medication. 0439 (Given - Provid er: Jaren Lopez RN) ondansetron hcl (ZOFRAN) injection 4 mg (COMPLETED) 4 mg, IV Push, NOW, 1 dose, On 08/12/23 at 0459, Caution: This medication looks and/or sounds like another medication. 0438 (Given - Provid er: Jaren Lopez RN) sodium chloride 0.9% bolus 0.9 % solution 1,000 mL (COMPLETED) 1,000 mL, Intravenous, Administer over 31 Minutes, On 08/12/23 at 0459, ONCE, 1 dose 0437 (New Bag - Prov ider: Jaren Lopez RN)0508 (Stopped - Provider: Jaren Lopez RN) Linked Groups Order Group 1: aluminum-magnesium [...] BE BASED ON THE PRIMARY CLINICAL RECORDS. [facility] [employer] [facility]. provides no warranty or guarantee of the accuracy or completeness of information in this document.
[2024-04-21] MEDS: HYDROCODONE/ACET 5-325 MG TABLET 1 TAB PO ×2 (22:52)
--- NOTE | 2024-04-21 22:56 | ED_ITS ---
HPI HPI - General Adult General Chief complaint: Extremity Problem, Nontraumatic Stated complaint: RT ANKLE/FT PAIN Time Seen by Provider: 04/21/24 22:18 Source: patient Mode of arrival: walk-in Limitations: no limitations History of Present Illness HPI narrative: 53-year-old female to the emergency department chief complaint of acute on chronic right foot pain. Patient has a history of near complete reconstructive surgery of her right foot. She reports that she has been having some increasing pain laterally in the foot. She has an upcoming appoint with her health care technician Dr. Felix. She has an upcoming MRI. She reports the pain is getting worse however and she needs some stronger pain medication to help her through. No specific injury. Worse when walking. No redness or warmth. Related Data Home Medications ?Medication ?Instructions ?Recorded ?Confirmed atenolol 25 mg tablet 25 mg PO Q24H 05/04/23 03/25/24 fremanezumab-vfrm 225 mg/1.5 mL 125 mg subcut .[id number] 05/04/23 03/25/24 subcutaneous auto-injector (Ajovy) ropinirole 1 mg tablet 1 mg PO QAM 05/04/23 03/25/24 ropinirole 2 mg tablet 2 mg PO QPM 05/04/23 02/26/24 aripiprazole 9.75 mg/1.3 mL 300 mg IM .monthly 10/29/23 03/25/24 intramuscular solution daridorexant 25 mg tablet (Quviviq) 25 mg PO QPM 10/29/23 03/25/24 fluticasone fur. 100 mcg-umeclid 1 inh inhalation Q24H 11/03/23 03/25/24 62.5 mcg-vilant 25 mcg inhalat.powder (Trelegy Ellipta) lamotrigine 25 mg disintegrating 25 mg PO DAILY 11/03/23 03/25/24 tablet lisdexamfetamine 30 mg capsule 30 mg PO DAILY 12/11/23 03/25/24 (Vyvanse) Previous Rx's ?Medication ?Instructions ?Recorded hydrocodone 5 mg-acetaminophen 325 1 tab PO Q6H PRN pain #12 tabs 04/21/24 mg tablet Allergies Allergy/AdvReac Type Severity Reaction Status Date / Time risperidone [From Risperdal] AdvReac Mild breast Verified 04/21/24 22:17 nipples leak Opioid HPI Opioid Management Most Recent Opioid Data: Last Pain Scale 8 04/21/24 22:52 Last Pain Intensity 9 05/15/23 10:30 Review of Systems ROS Status of ROS 10 or more systems reviewed and unremark able except as noted in history and below [facility] Medical History Panic attacks ?F41.0 - Panic disorder [episodic paroxysmal anxiety] (ICD-10) OCD (obsessive compulsive disorder) ?F42.9 - Obsessive-compulsive disorder, unspecified (ICD-10) COVID-19 ?U07.1 - COVID-19 (ICD-10) Migraine ?G43.909 - Migraine, unspecified, not intractable, without status migrainosus (ICD-10) Gastritis ?K29.70 - Gastritis, unspecified, without bleeding (ICD-10) GERD (gastroesophageal reflux disease) ?K21.9 - Gastro-esophageal reflux disease without esophagitis (ICD-10) Peroneal tendinitis ?M76.70 - Peroneal tendinitis, unspecified leg (ICD-10) Posterior tibial tendon dysfunction ?M76.829 - Posterior tibial tendinitis, unspecified leg (ICD-10) Painful orthopaedic hardware ?T84.84XA - Pain due to internal orthopedic prosthetic devices, implants and grafts, initial encounter (ICD-10) Cellulitis ?L03.90 - Cellulitis, unspecified (ICD-10) Post op infection ?T81.40XA - Infection following a procedure, unspecified, initial encounter (ICD-10) Restless leg syndrome ?G25.81 - Restless legs syndrome (ICD-10) Tibialis anterior tendon tear, traumatic ?S86.219A - Strain of muscle(s) and tendon(s) of anterior muscle group at lower leg level, unspecified leg, initial encounter (ICD-10) Osteoarthritis ?M19.90 - Unspecified osteoarthritis, unspecified site (ICD-10) Back pain ?M54.9 - Dorsalgia, unspecified (ICD-10) Sleep disorder ?G47.9 - Sleep disorder, unspecified (ICD-10) PTSD (post-traumatic stress disorder) ?F43.10 - Post-traumatic stress disorder, unspecified (ICD-10) Depression ?F32.A - Depression, unspecified (ICD-10) Anxiety ?F41.9 - Anxiety disorder, unspecified (ICD-10) Sleep apnea ?G47.30 - Sleep apnea, unspecified (ICD-10) Asthma ?J45.909 - Unspecified asthma, uncomplicated (ICD-10) Constipation ?K59.00 - Constipation, unspecified (ICD-10) High cholesterol ?E78.00 - Pure hypercholesterolemia, unspecified (ICD-10) Hypertension ?I10 - Essential (primary) hypertension (ICD-10) Female rectocele with enterocele ?N81.6 - Rectocele (ICD-10) ?K46.9 - Unspecified abdominal hernia without obstruction or gangrene (ICD- 10) 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 - Other specified functional intestinal disorders (ICD-10) Surgical History H/O tooth extraction ?K08.409 - Partial loss of teeth, unspecified cause, unspecified class (ICD- 10) H/O foot surgery (05/12/23) ?Z98.890 - Other specified postprocedural states (ICD-10) History of appendectomy (1987) ?Z90.49 - Acquired absence of other specified parts of digestive tract (ICD- 10) History of colonoscopy ?Z98.890 - Other specified postprocedural states (ICD-10) History of colectomy (03/2022) ?Z90.49 - Acquired absence of other specified parts of digestive tract (ICD- 10) History of tonsillectomy and adenoidectomy ?Z90.89 - Acquired absence of other organs (ICD-10) History of hysterectomy (2014) ?Z90.710 - Acquired absence of both cervix and uterus (ICD-10) History of arthroplasty of right ankle ?Z98.890 - Other specified postprocedural states (ICD-10) History of repair of rotator cuff ?Z98.890 - Other specified postprocedural states (ICD-10) S/P ankle ligament repair (2020) ?Z98.890 - Other specified postprocedural states (ICD-10) Family History Other Family history of Alzheimer's disease Family history of coronary artery disease Family history of heart disease Family history of hypertension Social History Within the past year, how often did you have a drink containing alcohol: never Score interpretation: A score less than 3 is consistent with normal alcohol consumption. Smoking status: Never smoker Non-prescribed substance use: denies use Previous occupational history: unemployed Highest level of school completed/degree received: some college, no degree Little interest or pleasure in doing things: not at all Feeling down, depressed, or hopeless: not at all Feel stressed/tense/nervous/anxious/difficulty sleeping: only a little Due to disability, difficulty making decisions: No Do you think of yourself as: straight/heterosexual Gender Identity: female Exam Narrative Exam Narrative: VITALS: I have reviewed the triage vital signs. GENERAL: Well developed, well appearing adult in no acute distress. Right lower Extremity: DP and PT pulses intact. Limb is similar color and temperature to the contralateral limb. Compartments soft. No swelling. No ecchymosis. No medial malleolus tenderness. No lateral malleolus tenderness. Positive tenderness at the base of the fifth metatarsal. No midfoot tenderness. No fibular head tenderness. Able to bear weight with arches maintained. Sensation is intact over the foot and lower leg. Dorsiflexion/plantar flexion, knee flexion/extension, hip flexion/extension are grossly intact by strength testing. Multiple well-healed surgical scars. SKIN: Warm and dry. Normal turgor. No rash or lesions appreciated. PSYCH: Mood, affect, and interaction is appropriate to the setting. Constitutional Vital Signs, click to edit/add: Last Vital Signs Temp 97.7 F 04/21/24 22:14 Pulse 83 04/21/24 22:14 Resp 18 04/21/24 22:14 BP 138/94 H 04/21/24 22:14 Pulse Ox 100 04/21/24 22:14 O2 Del Method Room Air 04/21/24 22:14 Course Vital Signs Vital signs: Vital Signs Temperature 97.7 F 04/21/24 22:14 Pulse Rate 83 04/21/24 22:14 Respiratory Rate 18 04/21/24 22:14 Blood Pressure 138/94 H 04/21/24 22:14 Pulse Oximetry 100 04/21/24 22:14 Oxygen Delivery Method Room Air 04/21/24 22:14 Temperature 97.7 F 04/21/24 22:14 Pulse Rate 83 04/21/24 22:14 Respiratory Rate 18 04/21/24 22:14 Blood Pressure 138/94 H 04/21/24 22:14 Pulse Oximetry 100 04/21/24 22:14 Oxygen Delivery Method Room Air 04/21/24 22:14 Medical Decision Making MDM Narrative Medical decision making narrative: 53-year-old female to the emergency department acute on chronic foot pain being managed by podiatry. The lower extremity is neurovascularly intact. Has had imaging, upcoming MRI, suspected tendinitis. Pain is coming severe and she cannot sleep. [place] was given. Short prescription of pain medication for home. No indication for imaging at this time given her workup and podiatry follow-up. Return precautions were discussed. All questions were answered. The patient was discharged home Discharge Plan Discharge Stand Alone Forms: Portal Instructions Chief Complaint: Extremity Problem, Nontraumatic Clinical Impression: Acute foot pain Patient Disposition: Home, Self-Care Time of Disposition Decision: 22:32 Condition: Good Mode of Transportation: Private Vehicle Prescriptions / Home Meds: New hydrocodone-acetaminophen 5-325 mg tablet 1 tab PO Q6H PRN (Reason: pain) Qty: 12 0RF No Action Trelegy Ellipta 100-62.5-25 mcg blister with device 1 inh INHALATION Q24H lamotrigine 25 mg tablet,disintegrating 25 mg PO DAILY Quviviq 25 mg tablet 25 mg PO QPM aripiprazole 9.75 mg/1.3 mL solution 300 mg IM .monthly lisdexamfetamine [Vyvanse] 30 mg capsule 30 mg PO DAILY atenolol 25 mg tablet 25 mg PO Q24H ropinirole 1 mg tablet 1 mg PO QAM ropinirole 2 mg tablet 2 mg PO QPM Ajovy Autoinjector 225 mg/1.5 mL auto-injector 125 mg subcut .[id number] Patient Comments: on the of every month Print Language: Swedish Instructions: Foot Sprain (ED) Additional Instructions: Call the office of your primary care doctor to arrange for follow-up within the above-stated timeframe. Follow-up with your primary care doctor about this ED visit. You should review your labs, imaging, and diagnoses from this ED visit with your primary care physician. There may be non-emergent findings that need further evaluation. If you were prescribed medications you should discuss possible side-effects and drug interactions with your pharmacist. Call 911 or go to the nearest Emergency Department if you develop any new or worsening symptoms. Referrals: Isatu CASTRO [Primary Care Provider] - 1 week Jacob Felix DPM [Physician] - 1 week
--- NOTE | 2024-04-21 22:57 | PC.NURSE ---
Pt has had reconstructive surgeries on right ankle and foot, having unmanageable pain at home. Pt has been taking tylenol regualrly. Pt sees hook tender and has MRI ordered for Monday.
[2024-04-21 22:58] VITALS: BP 145/85; PULSE 76; O2SAT 99
== END 2024-04-21 22:58 | disposition home or self-care (01) ==
PROVIDERS: Emergency Provider Student in an Organized Health Care Education/Training Program; PCP Family Medicine
DX: M79.671 Pain in right foot (principal)
CPT/HCPCS: 99283

== ENCOUNTER 2024-04-22 12:44 | Outpatient (OUT) | payer OTHER, SELFPAY ==
--- NOTE | 2024-04-22 13:28 | P.CN_ITS ---
Consult Note: HPI Data of Consult Patient: known to practice within the last 3 years Consult date: 04/22/24 Requesting Physician: Ace Ahumada MD Primary Care Provider: Isatu CASTRO Consult Narrative Reason for consult: midback pain Narrative: 53yof who presents for in office injection. has had relief previously with thoracic trigger point injections, would like to repeat today. cc:: CC: Ace Ahumada MD Review of Systems ROS Status of ROS 10 or more systems reviewed and unremark able except as noted in history and below PFSH PFS Medical History Panic attacks ?F41.0 - Panic disorder [episodic paroxysmal anxiety] (ICD-10) OCD (obsessive compulsive disorder) ?F42.9 - Obsessive-compulsive disorder, unspecified (ICD-10) COVID-19 ?U07.1 - COVID-19 (ICD-10) Migraine ?G43.909 - Migraine, unspecified, not intractable, without status migrainosus (ICD-10) Gastritis ?K29.70 - Gastritis, unspecified, without bleeding (ICD-10) GERD (gastroesophageal reflux disease) ?K21.9 - Gastro-esophageal reflux disease without esophagitis (ICD-10) Peroneal tendinitis ?M76.70 - Peroneal tendinitis, unspecified leg (ICD-10) Posterior tibial tendon dysfunction ?M76.829 - Posterior tibial tendinitis, unspecified leg (ICD-10) Painful orthopaedic hardware ?T84.84XA - Pain due to internal orthopedic prosthetic devices, implants and grafts, initial encounter (ICD-10) Cellulitis ?L03.90 - Cellulitis, unspecified (ICD-10) Post op infection ?T81.40XA - Infection following a procedure, unspecified, initial encounter (ICD-10) Restless leg syndrome ?G25.81 - Restless legs syndrome (ICD-10) Tibialis anterior tendon tear, traumatic ?S86.219A - Strain of muscle(s) and tendon(s) of anterior muscle group at lower leg level, unspecified leg, initial encounter (ICD-10) Osteoarthritis ?M19.90 - Unspecified osteoarthritis, unspecified site (ICD-10) Back pain ?M54.9 - Dorsalgia, unspecified (ICD-10) Sleep disorder ?G47.9 - Sleep disorder, unspecified (ICD-10) PTSD (post-traumatic stress disorder) ?F43.10 - Post-traumatic stress disorder, unspecified (ICD-10) Depression ?F32.A - Depression, unspecified (ICD-10) Anxiety ?F41.9 - Anxiety disorder, unspecified (ICD-10) Sleep apnea ?G47.30 - Sleep apnea, unspecified (ICD-10) Asthma ?J45.909 - Unspecified asthma, uncomplicated (ICD-10) Constipation ?K59.00 - Constipation, unspecified (ICD-10) High cholesterol ?E78.00 - Pure hypercholesterolemia, unspecified (ICD-10) Hypertension ?I10 - Essential (primary) hypertension (ICD-10) Female rectocele with enterocele ?N81.6 - Rectocele (ICD-10) ?K46.9 - Unspecified abdominal hernia without obstruction or gangrene (ICD- 10) 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 - Other specified functional intestinal disorders (ICD-10) Surgical History H/O tooth extraction ?K08.409 - Partial loss of teeth, unspecified cause, unspecified class (ICD- 10) H/O foot surgery (05/12/23) ?Z98.890 - Other specified postprocedural states (ICD-10) History of appendectomy (1987) ?Z90.49 - Acquired absence of other specified parts of digestive tract (ICD- 10) History of colonoscopy ?Z98.890 - Other specified postprocedural states (ICD-10) History of colectomy (03/2022) ?Z90.49 - Acquired absence of other specified parts of digestive tract (ICD- 10) History of tonsillectomy and adenoidectomy ?Z90.89 - Acquired absence of other organs (ICD-10) History of hysterectomy (2014) ?Z90.710 - Acquired absence of both cervix and uterus (ICD-10) History of arthroplasty of right ankle ?Z98.890 - Other specified postprocedural states (ICD-10) History of repair of rotator cuff ?Z98.890 - Other specified postprocedural states (ICD-10) S/P ankle ligament repair (2020) ?Z98.890 - Other specified postprocedural states (ICD-10) Family History Other Family history of Alzheimer's disease Family history of coronary artery disease Family history of heart disease Family history of hypertension Social History Within the past year, how often did you have a drink containing alcohol: never Score interpretation: A score less than 3 is consistent with normal alcohol consumption. Smoking status: Never smoker Non-prescribed substance use: denies use Previous occupational history: unemployed Highest level of school completed/degree received: some college, no degree Little interest or pleasure in doing things: not at all Feeling down, depressed, or hopeless: not at all Feel stressed/tense/nervous/anxious/difficulty sleeping: only a little Due to disability, difficulty making decisions: No Do you think of yourself as: straight/heterosexual Gender Identity: female Meds Home Medications and Allergies Home Medications ?Medication ?Instructions ?Recorded ?Confirmed ?Type atenolol 25 mg tablet 25 mg PO Q24H 05/04/23 03/25/24 History fremanezumab-vfrm 225 mg/1.5 mL 125 mg subcut .[id number] 05/04/23 03/25/24 History subcutaneous auto-injector (Ajovy) ropinirole 1 mg tablet 1 mg PO QAM 05/04/23 03/25/24 History ropinirole 2 mg tablet 2 mg PO QPM 05/04/23 02/26/24 History aripiprazole 9.75 mg/1.3 mL 300 mg IM .monthly 10/29/23 03/25/24 History intramuscular solution daridorexant 25 mg tablet (Quviviq) 25 mg PO QPM 10/29/23 03/25/24 History fluticasone fur. 100 mcg-umeclid 1 inh inhalation Q24H 11/03/23 03/25/24 History 62.5 mcg-vilant 25 mcg inhalat.powder (Trelegy Ellipta) lamotrigine 25 mg disintegrating 25 mg PO DAILY 11/03/23 03/25/24 History tablet lisdexamfetamine 30 mg capsule 30 mg PO DAILY 12/11/23 03/25/24 History (Vyvanse) hydrocodone 5 mg-acetaminophen 325 1 tab PO Q6H PRN pain #12 tabs 04/21/24 Rx mg tablet Allergies Allergy/AdvReac Type Severity Reaction Status Date / Time risperidone [From Risperdal] AdvReac Mild breast Verified 04/21/24 22:17 nipples leak Exam Narrative Exam Narrative: Psych-alert and oriented x 3. Attentive and appropriate, constitutionally normal, displays normal mood and affect per situation.? There are no obvious deficits in memory, reasoning, or intellect.? Skin-no obvious rashes, bruising, erythema noted to the patient's area of pain. Extremities- extremities are warm with minimal edema and palpable pulses. Thoracic - tenderness to palpation noted in the thoracic spine and paraspinal musculature.?Multiple trigger points expressed on palpation. Pain is elicited with extension, and lateral rotation of the thoracic spine. Range of motion is slightly diminished with these motions due to pain. Facet loading maneuvers are positive bilaterally and do appear to be concordant with the patient's normal complaints of pain.? Coordination remains intact.? Gait remains non-antalgic. Assessment and Plan Assessment and Plan (1) Myofascial pain: Plan 53yof who presents for in office injection. continues to have midback pain. previous TPI with >50% relief for >3 months. risks and benefits reviewed, we agree to proceed. Procedure: Bilateral thoracic paraspinal trigger point injections Medications: Bupivacaine 0.25% 8cc, kenalog 80mg I explained the details of the procedure to the patient including the risks, benefits, and alternatives.? We had an informed discussion.? The patient verbalized understanding and signed the consent form.? All questions were answered appropriately.? A time-out was performed.? After obtaining a comfortable seated position, the skin overlying the thoracic back was prepped with alcohol 3 times. The needle was inserted in a sterile manner through the skin towards the palpated trigger point areas. The contents of the syringe were gently injected without any resistance 1cc at a time into the appropriate trigger point.? The needle was removed and pressure was applied at the injection site to decrease the incidence of ecchymosis and hematoma formation.? A sterile bandage was applied. The patient tolerated the procedure well.
== END 2024-04-22 12:45 | disposition home or self-care (01) ==
LOC: PM 12:44
PROVIDERS: PCP Family Medicine; Visit Provider Anesthesiology
DX: M79.18 Myalgia, other site (principal)
CPT/HCPCS: 20553; J0665; J3301

== ENCOUNTER 2024-04-29 08:13 | Day surgery (SDC) | payer OTHER, SELFPAY ==
[2024-04-29 08:29] VITALS: BP 117/83; PULSE 72; TEMP 36.8; O2SAT 100
[2024-04-29] MEDS: 0.9 % SODIUM CHLORIDE 500 ML IV (08:49)
--- NOTE | 2024-04-29 09:35 | P.ON_ITS ---
Date of procedure: 04/29/24 Pre-op diagnosis: Pain due to cervical spondylosis without myelopathy Post-op diagnosis: same as pre-op Procedure: Procedure: Left C2-3, 3-4 radiofrequency ablation Medications: Bupivacaine 0.25% 2cc, lidocaine 2% 3cc, dexamethasone 10mg The patient was seen and examined in the preoperative holding area.? The site was marked.? Written informed consent was obtained and placed on the chart.? The patient was brought to the medical procedure unit and placed in the prone position.? A timeout was completed verifying correct patient, procedure, positioning, and special requirements.? The skin overlying the target points, the designated medial branch, were prepped and draped in the usual sterile fashion.? The target point was achieved with a 20-gauge 15 cm with a 10 mm curved active tip radiofrequency cannula under direct fluoroscopic visualization .? The needle was inserted at level C2 on the left side. Needle tip position was confirmed with lateral fluoroscopic position.? Motor stimulation was carried out at 2 Hz up to 5 volts with the absence of extremity activity.? This was repeated at level C3, 4 on left side.?? Sensory stimulation was carried out.? Concordant pain was realized at the above- mentioned sites.? Then radiofrequency lesioning was carried out times 90 seconds at 80 degrees times 2 lesions at each level.? The radiofrequency probe was removed prior to cannula removal.? The above-mentioned injectate was placed in 1 mL increments.? The needle was removed.? Insertion sites were covered.? The patient was taken to the postoperative recovery area and monitored for an appropriate length of time before being found suitable for discharge in the company of a responsible adult. Anesthesia: MAC Surgeon: Ace Ahumada Pathology: none sent Condition: stable Disposition: no change
[2024-04-29] MEDS: BUPIVACAINE HCL 0.25% PF 25 MG/10 ML VIAL 2 ML INJ (09:36)
[2024-04-29] MEDS: DEXAMETHASONE SOD PHOS 10 MG/ML VIAL INJ (09:36)
[2024-04-29] MEDS: LIDOCAINE HCL 2% 400 MG/20 ML MDV INJ (09:37)
[2024-04-29 09:39] VITALS: BP 140/86; PULSE 63; TEMP 36.3; O2SAT 100
[2024-04-29 09:41] VITALS: BP 136/84; PULSE 63; TEMP 36.3; O2SAT 100
== END 2024-04-29 10:03 | disposition home or self-care (01) ==
LOC: SURGOUT 08:14
PROVIDERS: PCP Family Medicine; Visit Provider Anesthesiology
PROC: (CPT 1939; principal; 2024-04-29 09:10)
DX: M47.812 Spondylosis without myelopathy or radiculopathy, cervical region (principal)
CPT/HCPCS: 64633; 64634; J0665; J1100; J2704

== ENCOUNTER 2024-05-13 07:06 | Day surgery (SDC) | payer OTHER, SELFPAY ==
[2024-05-13 07:10] VITALS: BP 121/77; PULSE 62; TEMP 36.1; O2SAT 100
--- OUTSIDE RECORDS SUMMARY | 2024-05-13 07:11 | XMS_ITS ---
Patient Summarization (C-CDA 2.1 CCD) Created on: May 13, 2024 Zoay NESBITT~ELVIS : 1970 Sex: Female Author Organization Sample organization Care Team Providers Care Short Haul Driver Name Role Phone PARISH GÓMEZ Primary Care Unavailable Eliceo Gómez Jr. Primary Care Provider Gwendolyn Stroud Unavailable Maximus OROSCO, Gwendolyn Unavailable [phone] Beto Snyder Unavailable Tita Daugherty Unavailable Erica Kingston Unavailable Eliceo Gómez Unavailable Unavailable Unavailable Allison Arita Unavailable Eliceo Gómez Jr. Primary Care Provider Maximus OROSCO, Gwendolyn Unavailable Eliceo Gómez Unavailable DO Shannon Gómez Primary Care Provider [phone] MD Beto Snyder Attending Provider Eliceo Gómez Jr. Primary Care Provider Maximus OROSCO Gwendolyn Unavailable Beto Cartagena Unavailable MD Beto Cartagena Attending Provider [phone] WINSTON HANNAH Attending Unavailable WINSTON HANNAH Referring Unavailable ELICEO GÓMEZ JR Primary Care Unavail able ISRA MASTERS Attending Unavailable ISRA MASTERS Referring Unavailable ELICEO GÓMEZ JR Primary Care Unavail able DO Shannon Gómez Primary Care Provider [phone] LORRAINE Duron Attending Provider JEM ., DR [...] SADE Keys Admitting Unavailable ZIEBER, DR ZAIDA Ellis Consulting Unavailable HIGHLANDER, SADE Keys Consulting Unavailable KAFTAN, DR Isatu LUGO Primary Care Unavailable HAY ., DR BAEZA Consulting Unavailable HAY ., DR BAEZA Attending Unavailable HAY ., DR BAEZA Admhugh Unavailable HIGHLANDER, SADE Keys Attending Unavailable HIGHLANDER, SADE Keys Admitting Unavailable KAFTAN, DR Isatu LUGO Primary Care Unavailable ZIEBER, DR ZAIDA Ellis Consulting Unavailable HIGHLANDER, SADE Keys Consulting Unavailable [...] WEST, DR NICKI Gale Consulting Unavailable SADE FELIX Consulting Unavailable EDUARDO ., NANCY LAMA Consulting Unavailable GEMBUSDAWNA Consulting Unavailable HIGHLANDER, SADE Keys Consulting Unavailable CHANI, SADE Keys Attending Unavailable SADE FELIX Admitting Unavailable KALEIGHA, DR Isatu LUGO Primary Care Unavailable DALIA, DR Isatu LUGO Primary Care Unavailable PAY ., DR MCDONALD Attending Unavailable PAY ., DR MCDONALD Admitting Unavailable PAY ., DR MCDONALD Consulting Unavailable NIECY DURON Attending Unavailable NIECY DURON Admitting Unavailable DALIA, DR Isatu LUGO Primary Care Unavailable ZIEBER, DR ZAIDA Ellis Consulting Unavailable NIECY DURON Consulting Unavailable DO [facility] Emergency Provider Unavailable Unavailable Unavailable Primary [...] Dipti Fam Attending Unava ilaraceli Gómez Jr., Eliceo LOAIZA [facility] eduardo PAULINE CHRISTENSEN Attending Unavailable ELICEO GÓMEZ JR Referring Unavailable ELICEO GÓMEZ JR Primary Care Unavailable Dalia Morales DO, George R Primary Care Provider DO Shannon Gómez Primary Care Provider [phone] DO Eagle Vazquez Attending Provider RAJIV WILKINSON Attending Unavailable ELICEO GÓMEZ JR Primary Care Unavailable CULLEN DAWKINS Referring Unavailable ELICEO GÓMEZ JR Primary Care Unavailable WERNING, CULLEN W Attending Unavailable EVERETTE, CULLEN W Referring Unavailable KAFTAN JR, ELICEO Ellis Primary Care Unavailable WERNING, CULLEN W Attending Unavailable KAFTAN JR, ELICEO Ellis Referring Unavailable KAFTAN JR, ELICEO Ellis Primary Care Unavailable WERNING, CULLEN W Admitting Unavailable WERNING, CULLEN W Attending Unavailable WERNING, CULLEN W Referring Unavailable KAFTAN JR, ELICEO Ellis Primary Care Unavailable WANG, PAM Referring Unavailable KAJEROMEAN JR, ELICEO LUGO Primary Care Unavail able Kaleigha Jenkins., DO, Eliceo Parish Primary Care Provi jose eduardo HERNANDEZTOMASA JENKINS, ELICEO LUGO Primary Care Unavail able WANG, PAM Admitting Unavailable WANG, PAM Attending Unavailable WANG, PAM Referring Unavailable KAFTAN JR, ELICEO LUGO Primary Care Unavail able JAIRON LAI Attending Unavailable WANG, PAM Attending Unavailable KAFTAN JR, ELICEO LUGO Primary Care Unavail able KAJEROMEAN , ELICEO LUGO Primary Care Unavail able NELSY CHÁVEZ Attending Unavailable FLOWER LOPEZ Attending Unavailable KAJEROMEAN , ELICEO LUGO Primary Care Unavail able KAJEROMEAN JR, ELICEO LUGO Primary Care Unavail able KAFTAN JR, ELICEO LUGO Primary Care Unavail able KAJEROMEAN , ELICEO LUGO Primary Care Unavail able WANG, PAM Attending Unavailable KAFTAN , ELICEO LUGO Primary Care Unavail able WANG, PAM Attending Unavailable WANG, PAM Referring Unavailable HERNANDEZAN JR ELICEO LUGO Primary Care Unavail able DORIS ARIAS Attending Unavailable Shannon Gómez DO Primary Care Provider Shannon GÓMEZ Primary Care Unavailable MILAGROS FRANCO Attending Unavailab PADMAJA Lozada Referring Unavailable Shannon GÓMEZ Referring Unavailable RADHA CARDENAS Attending Unavailable Shannon GÓMEZ Primary Care Unavailable RADHA CARDENAS Attending Unavailable Shannon GÓMEZ Primary Care Unavailable Shannon GÓMEZ Referring Unavailable RADHA CARDENAS Attending Unavailable Shannon GÓMEZ Primary Care Unavailable Shannon GÓMEZ Referring Unavailable SELF, SELF Referring Unavailable Shannon GÓMEZ Primary Care Unavailable DO Shannon Gómez Primary Care Provider FADUMO Felix Attending Provider Brandyn BENSON, Ace Art Attending Unavailable Giedraitis , Andrius Kaelyn Attending Unavailable Giedraitis , Andrius Shahlaytnellie Attending Unavailable Giedraitis , Andrius Shahlaytnellie Attending Unavailable Giedraitis , Andrius Kaelyn Attending Unavailable Giedraitis , Andrius Shahlaytnellie Attending Unavailable Giedraitis , Andrius Kaelyn Attending Unavailable Giedraitis , Andrius Art Attending Unavailable ELICEO GÓMEZ Attending Unavailable EAGLE VAZQUEZ Attending Unavailable KAFTELICEO RANDOLPH Attending Unavailable DIPTI ACEVEDO Attending Unavailable EAGLE VAZQUEZ Attending Unavailable KAFTELICEO RANDOLPH Referring Unavailable KAFTANELICEO Attending Unavailable KAFTANELICEO R Referring Unavailable KAFTANELICEO Attending Unavailable KAFTANELICEO R Referring Unavailable LUBYRON Attending Unavailable JES MARTINEZ Attending Unavailable SIDNEY AMEZQUITA Attending Unavailable KAELICEO AHUJA Referring Unavailable KAFTANELICEO Attending Unavailable KAELICEO AHUJA Referring Unavailable NELSY SNYDER Attending Unavailable EAGLE VAZQUEZ Attending Unavailable KAELICEO AHUJA Referring Unavailable RON KING Attending Unavailable ELICEO GÓMEZ Referring Unavailable EAGLE VAZQUEZ Referring Unavailable RON KING Referring Unavailable Anibal Valle Admitting Unavailable Anibal Valle Attending Unavailable Shannon Gómez Primary Care Unavailable Eagle Vazquez Admitting Unavailable Eagle Vazquez Attending Unavailable Shannon Gómez Primary Care Unavailable Sade Felix Attending Unavailable Shannon Gómez Primary Care Unavailable Sade Felix Admitting Unavailable SIOMARA MONTAGUE Attending Unavailable ENANIL DEB Referring Unavailable GIANA MORALES Attending Unavailable PAULINE CHRISTENSEN Attending Unavailable PAULINE CHRISTENSEN Attending Unavailable RADHA CASTREJON Attending Unavailable RADHA CASTREJON Attending Unavailable MATTEO QUINONES Attending Unavailable SIOMARA MONTAGUE Referring Unavailable CHRISTENSENPAULINE GONSALVES Referring Unavailable CHRISTENSENPAULINE GONSALVES Referring Unavailable GIANA MORALES Attending Unavailable GIANA MORALES Attending Unavailable Allergies Allergy Classification Reported Allergen(s) Allergy Type Date of Onset Reaction(s) Facility risperiDONE (1 source) risperiDONE Drug Allergy 9 [facility] (20 sources) risperiDONE; Translations: [RisperDAL TABS] Drug Allergy 0 Intolerance, Other (See Comments) [facility] (1 source) oxyCODONE Drug Allergy The [facility] Repository (1 source) risperiDONE Drug Allergy The [facility] Repository (13 sources) POISON BRENDA EXTRACT; Translations: [POISON BRENDA EXTRACT] Drug Allergy 3 Rash [facility] (1 source) risperiDONE Drug Allergy 3 [facility] Repository (1 source) POISON BRENDA; Translations: [POISON BRENDA] Propensity to adverse reactions to drug (disorder) 2 [facility] Repository Encounters Encounter Date Encounter Type Care Provider Facility Start: 05-06-2024 End: 05-06-2024 ambulatory NELSY SNYDER Not Available Start: 05-02-2024 End: 05-02-2024 ambulatory ELICEO GÓMEZ Not Available Start: 04-30-2024 End: 04-30-2024 Patient encounter procedure DO Shannon Gómez Work Phone: [facility] [address] Work Phone: Start: 04-30-2024 End: 04-30-2024 ambulatory DO Shannon Gómez Work Phone: [facility] Work Phone: Start: 04-28-2024 End: 04-29-2024 ambulatory Ace Ahumada MD Facility: [facility] Start: 04-28-2024 End: 04-28-2024 ambulatory YAHIR [facility] Start: 04-22-2024 End: 04-22-2024 ambulatory Ace Ahumada MD Facility: [facility] Start: 04-15-2024 End: 04-15-2024 ambulatory SIDNEY AMEZQUITA Not Available Start: 04-12-2024 ambulatory Shannon GÓMEZ Facili ty:[facility] Start: 04-12-2024 End: 04-12-2024 Subsequent hospital visit by physician Milagros Franco MD, PhD Work Phone: [facility] [place] Comment on above: Arrived Start: 04-03-2024 End: 04-03-2024 ambulatory PAULINE CHRISTENSEN [facility] Start: 03-26-2024 End: 03-26-2024 ambulatory JES MARTINEZ Not Available Start: 03-25-2024 End: 03-25-2024 ambulatory Ace Ahumada MD Facility: [facility] Start: 03-14-2024 End: 03-14-2024 ambulatory RON Rivera TATALeah Not Available Start: 03-12-2024 ambulatory Flower Daniele on [employer]NOVATION ANALYST.HOUSE BUILDER Work Phone: URO/Gynecology Comment on above: Estradiol vaginal cr eam Start: 03-08-2024 ambulatory SELF SELF Facility:[facility] Start: 03-06-2024 ambulatory RADHA CARDENAS Facilit y:[facility] Start: 03-06-2024 ambulatory RADHA CARDENAS Facilit y:[facility] Start: 03-06-2024 ambulatory Shannon Ramos ty:[facility] Start: 03-04-2024 End: 03-04-2024 ambulatory Ace Ahumada MD Facility: [facility] Start: 02-27-2024 End: 02-27-2024 ambulatory FLOWER JESSICA Facility:[facility] Start: 02-27-2024 End: 02-27-2024 Patient encounter procedure Flower Lopez INNOVATION ANALYST.HOUSE BUILDER Work Phone: URO/Gynecology Comment on above: Post-operative state (Primary Dx); Vaginal burning Start: 02-26-2024 End: 02-26-2024 ambulatory Ace Ahumada MD Facility: [facility] Start: 02-11-2024 End: 02-11-2024 ambulatory ELICEO GÓMEZ JR Facility:[facility] Start: 02-11-2024 End: 02-11-2024 ambulatory Lissa Doyle INNOVATION ANALYST.HOUSE BUILDER Work Phone: Telemedicine Comment on above: Procedure and treatm ent not carried out for other reasons (Primary Dx) Start: 02-11-2024 End: 02-11-2024 Telemedicine consultation with patient Lissa Doyle INNOVATION ANALYSTRenoHOUSE BUILDER Work Phone: [facility] Start: 02-09-2024 End: 02-09-2024 ambulatory Pam Wang MD Work Phone: URO/Gynecology Comment on above: Yeast infection Start: 02-07-2024 End: 02-07-[address] [facility] Start: 01-27-2024 Telephone encounter Radha florez MD Work Phone: Gynecology Start: 01-26-2024 End: 01-26-2024 ambulatory ELICEO GÓMEZ JR Facility:[facility] Start: 01-25-2024 End: 01-25-2024 Telemedicine consultation with patient Nurse Cable [address] Operator Work Phone: [facility] Start: 01-25-2024 Encounter for other preprocedural examination PAM [facility] Start: 01-25-2024 End: 01-25-2024 Admission to establishment Pac Verna Virtual Work Phone: [facility] Start: 01-25-2024 End: 01-25-[address] Work Phone: Pre Anesthesia Comment on above: Pre-op examination ( Primary Dx); Obesity (BMI 30.0-34.9); Mild persistent asthma without complication; CHUCKIE (obstructive sleep apnea); Primary hypertension; Gastroparesis; Gastroesophageal reflux disease, unspecified whether esophagitis present Educational circumst ances (Primary Dx) Start: 01-25-2024 End: 01-25-2024 Preprocedural examination done [facility] Work Phone: [facility] Work Phone: Start: 01-23-2024 End: 01-23-2024 ambulatory ELICEO GÓMEZ Not Available Start: 01-15-2024 End: 01-15-2024 ambulatory Ace Ahumada MD Facility:[facility] Start: 01-10-2024 End: 01-10-2024 ambulatory CULLEN DAWKINS [facility] Start: 01-10-2024 End: 01-10-2024 Postop follow up visit related to original px Cullen Dawkins MD Work Phone: [facility] Comment on above: CHUCKIE (obstructive sle ep apnea) (Primary Dx) Start: 01-03-2024 End: 01-03-2024 Evaluation and management of inpatient RAJIV WILKINSON [facility] Start: 01-02-2024 End: 01-03-2024 Evaluation and management of inpatient [facility] Start: 01-02-2024 End: 01-02-2024 Evaluation and management of inpatient [facility] Start: 12-27-2023 Telephone encounter Cullen glover MD Work Phone: [facility] Start: 12-25-2023 ambulatory Pam rios MD Work Phone: URO/Gynecology Comment on above: Having another stimu lator besides bladder Start: 12-25-2023 Telephone encounter Pam simon MD Work Phone: Gynecology Comment on above: Question Start: 12-25-2023 End: 12-25-2023 ambulatory Ace Ahumada MD Facility:[facility] Start: 12-20-2023 End: 12-20-2023 ambulatory [facility] Start: 12-20-2023 Encounter for other preprocedural examination RAJIV [facility] Start: 12-20-2023 End: 12-20-2023 Patient encounter procedure [facility] Provider [facility] Comment on above: Pre-op testing (Prim tomer Dx) Start: 12-20-2023 End: 12-20-2023 Patient encounter status [facility] Start: 12-11-2023 End: 12-11-2023 ambulatory Ace Ahumada MD Facility: [facility] Start: 11-30-2023 End: 11-30-2023 ambulatory EAGLE VAZQUEZ Not Available Start: 11-27-2023 End: 11-27-2023 ambulatory Beto Snyder Other [employer] Other Start: 11-27-2023 Telephone encounter Beto BATES [facility] Start: 11-23-2023 End: 11-23-2023 Patient encounter procedure DO Shannon Gómez Work Phone: [facility] [place] Work Phone: Start: 11-23-2023 End: 11-23-2023 ambulatory DO Shannon Gómez Work Phone: [facility] Work Phone: Start: 11-21-2023 End: 11-21-2023 ambulatory ELICEO LUGO DALIA Facility:[facility] Start: 11-16-2023 End: 11-16-2023 ambulatory Beto Snyder Other [employer] Other Start: 11-16-2023 Telephone encounter Beto BATES [facility] Start: 11-14-2023 End: 11-14-2023 ambulatory DIPTI ACEVEDO Not Available Start: 11-14-2023 End: 11-14-2023 ambulatory EAGLE VAZQUEZ Not Available Start: 11-10-2023 End: 11-10-2023 ambulatory ELICEO GÓMEZ Not Available Start: 11-08-2023 Telephone encounter Emily Zamora [facility] Start: 10-31-2023 End: 10-31-2023 ambulatory RON KING Not Available Start: 10-27-2023 End: 10-27-2023 ambulatory EAGLE WESTFALLFAY Not Available Start: 10-26-2023 Telephone encounter Beto Lunsford [facility] Start: 10-26-2023 End: 10-26-2023 ambulatory RON KING [facility] [employer] Other Start: 10-24-2023 End: 10-24-2023 ambulatory EAGLE WESTFALLFAY Not Available Start: 10-23-2023 End: 10-23-2023 ambulatory [facility] Start: 10-10-2023 End: 10-10-2023 ambulatory ELICEO GÓMEZ JR Facility:[facility] Start: 10-06-2023 End: 10-06-2023 ambulatory Beto Snyder Other [facility] [employer] Other Start: 10-06-2023 Telephone encounter Beto Snyder [facility] Start: 10-03-2023 End: 10-03-2023 ambulatory ELICEO GÓMEZ Not Available Start: 09-27-2023 End: 09-27-2023 ambulatory Pam Wang MD Work Phone: Urogynecology Comment on above: Worsening Start: 09-27-2023 Refill Doris Arias APRN.CNP Work Phone (unformatted): [phone] Urogynecology Comment on above: Med Change Request Start: 09-21-2023 End: 09-21-2023 ambulatory ELICEO GÓMEZ Not Available Start: 09-11-2023 End: 09-11-2023 ambulatory PAM WANG Facility:[facility] Start: 08-23-2023 End: 08-23-2023 ambulatory [facility] Start: 08-12-2023 End: 08-12-2023 Emergency department patient visit LEX SALMON [facility] Start: 08-12-2023 End: 08-12-2023 Emergency department patient visit Lex Salmon MD Work Phone: [facility] Comment on above: Upper abdominal pain (Primary Dx) Start: 08-09-2023 ambulatory Mary Obrien MD Work Phone: Colorectal Surgery Comment on above: Response Start: 08-07-2023 End: 08-07-2023 ambulatory Mary Obrien MD Work Phone: Colorectal Surgery Comment on above: Colon Start: 08-01-[address] Eliceo Gómez Jr Facility: Start: 07-31-2023 End: 07-31-2023 ambulatory ELICEO GÓMEZ JR Facility:[facility] Start: 07-31-2023 End: 07-31-2023 Patient encounter procedure Nelsy Chávez HARMAN Work Phone: URO/Gynecology Comment on above: Incomplete bladder e mptying (Primary Dx); Constipation, unspecified constipation type; Urinary urgency; Urinary frequency; Nocturia Start: 07-25-2023 End: 07-25-2023 ambulatory MATTEO MORENOLeah [facility] Start: 07-17-2023 (Procedure) Short Beto Snyder [facility] Start: 07-17-2023 End: 07-17-2023 ambulatory Beto Pradeeptonia Other [employer] Other Start: 07-12-2023 End: 07-12-2023 ambulatory Beto Pradeeptonia Other [employer] Other Start: 07-12-2023 Telephone encounter Beto Snyder [facility] Start: 06-13-2023 Office consultation new/estab patient 60 min Eliceo Gómez Work Phone: [facility] [address] DO Work Phone: Start: 06-13-[address] Dipti Anaya Facility: Start: 06-08-2023 End: 06-08-[address] [facility] Start: 06-07-[address] Dipti Anaya Facility:[id number] Start: 06-05-2023 End: 06-05-2023 Emergency department patient visit DO Shannon Gómez Work Phone: [facility] Work Phone: Start: 05-31-2023 End: 05-31-2023 ambulatory SIOMARA MONTAGUE [facility] Start: 05-28-2023 ambulatory Pam rios MD Work Phone: URO/Gynecology Comment on above: Problems with urinat ing Start: 05-22-2023 End: 05-22-2023 ambulatory RADHA CASTREJON [facility] Start: 05-17-2023 End: 05-17-2023 ambulatory GIANA MORALES [facility] Start: 05-17-2023 End: 05-17-2023 ambulatory RADHA CASTREJON [facility] Start: 04-26-2023 End: 04-26-2023 ambulatory Beto Snyder Other [employer] Other Start: 04-26-2023 Office outpatient vi sit 25 minutes Beto Snyder [facility] [place] Start: 04-11-2023 Refill Isra S Clin e DO Work Phone: Gastroenterology Comment on above: Refill Request Start: 04-04-2023 End: 04-05-[address] Isatu GÓMEZ Facility:[facility] Start: 03-19-2023 ambulatory Isra S Clin e DO Work Phone: Gastroenterology Comment on above: Stool sample results Start: 03-17-2023 End: 03-17-2023 ambulatory DO Shannon Gómez Work Phone: [facility] Work Phone: Start: 03-17-2023 End: 03-17-2023 Discharged Recurring DO Shannon Gómez Work Phone: [facility] [place] Work Phone: Start: 03-15-2023 Orders Only Isra S Clin [...] Isatu GÓMEZ Facility:[facility] Start: 01-20-2023 ambulatory Winston Keys Caroline chand DO Work Phone: General Surgery Comment on above: Clarification Start: 01-19-2023 ambulatory Winston Keys Caroline chand DO Work Phone: General Surgery Comment on above: General Start: 01-16-2023 Telephone encounter Mounika farrell PA-C Work Phone: Pre Anesthesia Comment on above: Appointment (Pt has not arrived for her 1 pm appointment) Start: 01-16-2023 End: 01-16-2023 Admission to [facility] Start: 01-16-2023 End: 01-16-2023 ambulatory [facility] Pre Anesthesia Comment on above: Preop examination (P rimary Dx); Nausea; CHUCKIE (obstructive sleep apnea); Mild persistent asthma without complication; Gastroesophageal reflux disease, unspecified whether esophagitis present; Gastroparesis Start: 01-16-2023 End: 01-16-2023 Preprocedural examination done Pac [facility] Pre Anesthesia Start: 01-11-2023 Telephone encounter Winstonaureliano aceves DO Work Phone: General Surgery Comment on above: Schedule Procedure Start: 01-10-2023 End: 01-10-2023 ambulatory Winston Karimitrinitymarco DO Work Phone: General Surgery Comment on above: Pylorospasm (Primary Dx); Functional dyspepsia; Gastroesophageal reflux disease with esophagitis without hemorrhage Start: 01-10-2023 End: 01-10-2023 Telemedicine consultation with patient Winston Hannah DO Work Phone: [facility] Start: 12-28-2022 ambulatory Yoni Tuttle MD Work Phone: NEUROLOGY Comment on above: No response Start: 12-26-2022 End: 12-26-2022 Subsequent hospital visit by physician [facility] (I-Stat) Radiology Start: 12-23-2022 ambulatory Yoni Tuttle MD Work Phone: NEUROLOGY Comment on above: Cpap Start: 12-22-2022 End: 12-22-2022 ambulatory Winston Karimirai DO Work Phone: General Surgery Comment on above: Pylorospasm (Primary Dx); Functional dyspepsia; Gastroesophageal reflux disease with esophagitis without hemorrhage Start: 12-22-2022 End: 12-22-2022 Telemedicine consultation with patient Winston Kraimitrinitymarco DO Work Phone: [facility] Start: 12-21-2022 End: 12-22-2022 ambulatory SADE Keys [facility] Facility: Start: 12-15-2022 End: 12-15-2022 Manual pelvic examination Mary Obrien MD Work Phone: Colorectal Surgery Comment on above: Colonic inertia (Phoebe unique Dx); Pelvic floor dysfunction; Nausea; Gastroparesis Start: 12-15-2022 End: 12-15-2022 Telemedicine consultation with patient Mary Obrien MD Work Phone: [facility] Start: 12-14-2022 ambulatory Yoni Tuttle MD Work [...] results; patient questions) Start: 12-07-2022 ambulatory Winston Keys Caroline chand DO Work Phone: General Surgery Comment on above: Carafate Start: 12-06-2022 ambulatory Isra S Clin e DO Work Phone: Gastroenterology Comment on above: Results Start: 12-05-2022 ambulatory Winstonaureliano Velazquez c DO Work Phone: [facility] Start: [...] patient Isra S Masters DO Work Phone: [facility] Start: 11-24-2022 ambulatory Isra S Clin e [...] End: 11-21-2022 Admission to establishment Pac Tevin [facility] 2 Work Phone: [facility] Start: 11-21-2022 End: 11-21-2022 Preprocedural examination done [facility] 2 Work Phone: Pre Anesthesia Start: 11-17-2022 ambulatory Annmarie Gillespie RN [facility] Start: 11-17-2022 Patient encounter procedure Annmarie Gillespie RN [facility] Start: 11-17-2022 End: 11-17-2022 Subsequent hospital visit by physician Capsule Work Phone: Gastroenterology Start: 11-16-2022 ambulatory Yoni Tuttle MD Work Phone: NEUROLOGY Comment on above: The delay Start: 11-15-2022 ambulatory Yoni Tuttle MD Work Phone: NEUROLOGY Comment on above: Labs Start: 11-14-2022 End: 11-15-2022 ambulatory NIECY DURON Facility:[facility] Start: 11-10-2022 Telephone encounter Annmarie Gillespie RNfood expeditor Comment on above: Preparations For Pro cedures [...] 10-23-2022 Encounter for preprocedural laboratory examination SADE FELIX Start: 10-20-2022 End: 10-20-2022 ambulatory Isra Masters [...] 10-14-2022 ambulatory DO Shannon Gómez Work Phone: [facility] Work Phone: Start: 10-14-2022 End: 10-14-2022 Discharged Recurring DO Shannon Gómez Work Phone: [facility] [place] Work Phone: Start: 10-13-2022 End: 10-14-2022 ambulatory [facility] Facility:H1 Start: 10-13-2022 End: 10-14-2022 Encounter for preprocedural laboratory examination [facility] Facility:H1 Start: 10-11-2022 End: 10-11-2022 ambulatory Beto Cartagena Other [employer] Other Start: 10-11-2022 Telephone encounter Beto Cartagena [employer] Start: 10-11-2022 End: 10-11-2022 Patient encounter procedure Isra Masters DO Work Phone: Gastroenterology Comment on above: Gas bloat syndrome ( Primary Dx); Chronic idiopathic constipation; Gastroparesis Start: 10-10-2022 End: 10-10-2022 ambulatory Beto Cartagena Other [facility] Other Start: 10-10-2022 Office outpatient ne w 30 minutes Beto Cartagena [facility] Start: 10-06-2022 End: 10-06-2022 ambulatory Beto Snyder Other [employer] Other Start: 10-06-2022 Patient encounter procedure Beto Snyder [facility] Start: 09-28-2022 Encounter for other preprocedural examination [facility] Start: 09-28-2022 Encounter for preprocedural cardiovascular examination [facility] Start: 09-26-2022 End: 09-27-2022 ambulatory [facility] Facility:H1 Start: 09-22-2022 Office outpatient vi sit 25 minutes Beto Snyder [facility] Start: 09-22-2022 Telephone encounter Beto [facility] Start: 09-22-2022 End: 09-22-2022 ambulatory DO Shannon Gómez Work Phone: [employer] Other Start: 09-22-2022 End: 09-22-2022 Patient encounter procedure DO Shannon Gómez Work Phone: [facility] Start: 09-14-2022 End: 09-14-2022 ambulatory Eliceo Gómez Other [employer] Other Start: 09-14-2022 Encounter by sierra Fenton Stephonleigha [facility] Start: 09-14-2022 Office outpatient vi sit 15 minutes Beto Snyder [facility] Start: 09-14-2022 Telephone encounter [facility] Start: 08-16-2022 ambulatory Mary Obrien MD Work Phone: Colorectal Surgery Comment on above: CT results Ct scan result quest ion Start: 08-16-2022 E-mail encounter kendra m caregiver Mary Obrien MD Work Phone: [facility] Start: 08-12-2022 End: 08-12-2022 Subsequent hospital visit by physician Jahaira Prep [facility] Start: 07-27-2022 End: 07-28-2022 ambulatory [facility] Facility: Start: 07-26-2022 Telephone encounter Isra Masters DO Work Phone: Gastroenterology Comment on above: Medication Problem; Medication 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 ([place] for Dexlansoprazole) Start: 07-26-2022 End: 07-26-2022 Patient encounter procedure Mary Obrien MD Work Phone: Colorectal Surgery Comment on above: Follow-up examinatio n after colorectal surgery (Primary Dx); Periumbilical abdominal pain; Outlet dysfunction constipation; Colonic inertia Start: 06-08-2022 (Procedure) Win Snyder [facility] Start: 06-08-2022 End: 06-08-2022 ambulatory Beto Snyder Other [employer] Other Start: 05-30-2022 Refill Mary Obrien MD Work Phone: Colorectal Surgery Comment on above: Refill Request Start: 05-26-2022 End: 05-26-2022 ambulatory Beto Snyder Other [employer] Other Start: 05-26-2022 Office outpatient vi sit 25 minutes Beto Snyder [facility] Start: 05-12-2022 Office consultation new/estab patient 60 min Eliceo Gómez Work Phone: [facility] [facility] DO Work Phone: Start: 05-10-2022 End: 05-10-2022 ambulatory Allison Arita Other [employer] Other Start: 05-10-2022 Office outpatient vi sit 15 minutes Allison Arita [facility] Start: 05-03-2022 Telephone encounter Mary brewer MD Work Phone: Colorectal Surgery Comment on above: Hand Bender - O ther Start: 04-26-2022 Telephone encounter Mary brewer MD Work Phone: Colorectal Surgery Comment on above: Patient Question Start: 04-22-2022 End: 04-22-2022 Patient encounter procedure Jessi Sheets APRN.HOUSE BUILDER Work Phone: Colorectal Surgery Comment on above: Follow-up examinatio n after colorectal surgery (Primary Dx); Pelvic floor dysfunction Start: 04-17-2022 End: 04-17-2022 ambulatory CHASITY FREIRE . Facility: Start: 04-07-2022 Telephone encounter Rachael Keys [facility] Comment on above: PostOp Follow-up Start: 03-22-2022 Telephone encounter Mary brewer MD Work Phone: Colorectal Surgery Comment on above: Patient Question Start: 03-15-2022 End: 03-15-2022 ambulatory Beto Snyder Other [employer] Other Start: 03-15-2022 Office outpatient vi sit 15 minutes Beto Snyder [facility] Start: 03-15-2022 Telephone encounter Mary brewer MD Work Phone: Colorectal Surgery Comment on above: Hand Bender - O ther Medication Preauthor ization ([place] for Dexilant renewal) Outside Labs Results Start: 03-15-2022 End: 03-15-2022 Patient encounter procedure Isra Masters DO Work Phone: Gastroenterology Comment on above: Gastroesophageal ref lux disease, unspecified whether esophagitis present; Chronic idiopathic constipation Start: 03-14-2022 End: 03-14-2022 [facility] 4 Work Phone: Pre Anesthesia Comment on above: Preop examination (P rimary Dx); Attention to ileostomy ([facility]); Primary hypertension; Gastroparesis; Gastroesophageal reflux disease, unspecified whether esophagitis present; Mild persistent asthma without complication; Bipolar 1 disorder ([facility]); Obesity (BMI 30.0-34.9) Start: 03-14-2022 End: 03-14-2022 Preprocedural examination done [facility] 4 Work Phone: Pre Anesthesia Start: 02-28-2022 Telephone encounter Isra Masters DO Work Phone: Gastroenterology Comment on above: Appointment (for scr ipt refill) Start: 02-18-2022 End: 02-18-2022 Patient encounter procedure Nelsy Wynnepawel QUIGLEY.HOUSE BUILDER Work Phone: URO/Gynecology Comment on above: Postoperative state (Primary Dx) Start: 02-11-2022 End: 02-11-2022 ambulatory [facility]olomew [facility] Start: 02-11-2022 End: 02-11-2022 Follow-up encounter Flaca Bartholomew PT Work Phone: [facility] Physical Therapy Comment on above: Pelvic floor dysfunc tion (Primary Dx); Lack of coordination; Follow-up examination after colorectal surgery Start: 02-09-2022 (Procedure) Win Snyder [facility] Start: 02-09-2022 End: 02-09-2022 ambulatory Beto Snyder Other [employer] Other Start: 02-08-2022 End: 02-08-2022 Patient encounter procedure Mary Obrien MD Work Phone: Colorectal Surgery Comment on above: Follow-up examinatio n after colorectal surgery (Primary Dx) Post-operative state (Primary Dx); Yeast infection of the skin Start: 02-01-2022 Refill Isra S Clin e DO Work Phone: Gastroenterology Comment on above: Refill Request (dexl ansoprazole) Start: 01-31-2022 End: 01-31-2022 ambulatory Newton Woodward PT Work Phone: [facility] Start: 01-31-2022 End: 01-31-2022 Follow-up encounter Newton Woodward PT Work Phone: [facility] Physical Therapy Comment on above: Pelvic floor dysfunc tion (Primary Dx); Lack of coordination; Follow-up examination after colorectal surgery Start: 11-25-2021 End: 11-25-2021 ambulatory Beto Snyder Other [employer] Other Start: 11-25-2021 Office outpatient vi sit 25 minutes Beto Steven [facility] Start: 11-17-2021 End: 11-18-2021 ambulatory [facility] Start: 10-20-2021 End: 10-20-2021 ambulatory Beto Snyder Other [employer] Other Start: 10-20-2021 Office outpatient vi sit 25 minutes Beto Snyder [facility] Start: 10-13-2021 (Procedure) Win Snyder [facility] Start: 10-13-2021 End: 10-13-2021 ambulatory Beto Snyder Other [facility] Other Start: 09-06-2021 Office outpatient vi sit 25 minutes Beto Snyder [facility] Start: 08-19-2021 Office outpatient vi sit 15 minutes Erica Kingston [facility] Start: 08-13-2021 Office outpatient vi sit 15 minutes Tita Daugherty [facility] Start: 08-12-2021 Office outpatient vi sit 25 minutes Beto Snyder [facility] [place] Start: 07-28-2021 Office outpatient vi sit 25 minutes Beto Snyder [facility] Medical Equipment Procedure Code Equipment Code Equipment Original Text Equipment Identifier Dates Fibertak Tyler Self-Punching Knotless 2.6mm W/No 5 Suture [id number] Start: 10-14-2020 Fibertak Tyler Knotless 2.6mm [id number] Start: 10-14-2020 Tyler Swivelock C 4.75mm Biocomposite Peek 19.1mm Suture Closed Eyelet - [id number] Start: 10-14-2020 Sling Gynecare T vt Exact Gynecological Stress Urinary Incontinence - [id number] Start: 12-24-2021 DISC CERVICAL 13 [id number] MOBI-C FDA Start: 09-20-2017 DISC CERVICAL 13 [id number] MOBI-C FDA Start: 09-20-2017 DISC CERVICAL 13 [id number] MOBI-C FDA Start: 09-20-2017 DISC CERVICAL 13 [id number] MOBI-C FDA Start: 09-20-2017 DISC CERVICAL 13 [id number] MOBI-C FDA Start: 09-20-2017 Generator Nrstm - [id number] Start: 01-02-2024 Lead Ns Respirat ory - [id number] Start: 01-02-2024 Lead Nrstm Inspr 3 Elect Cuf Tnl Boni Strl Lf - [id number] - [id number] Start: 01-02-2024 Lead Intrstim Mr i 28cm - [id number] Start: 01-26-2024 Interstim X Rech arge Free Neurostimulator - [id number] Start: 01-26-2024 DISC CERVICAL 13 [id number] MOBI-C FDA Start: 09-20-2017 Immunizations Immunization Date Immunization Notes Care Provider Shante rai 04-05-2024 zoster vaccine, unspecified formulation Milagros Franco MD, PhD Work Phone: [facility] 08-17-2022 influenza virus vaccine, unspecified formulation Nelsy Chávez APRN.HOUSE BUILDER Work Phone: [facility] 11-24-2021 Pfizer-BioNTech COVID-19 Vacc 30 MCG/0.3ML Intramuscular Suspension Eliceo R Dalia Work Phone: [facility] Work Phone: 08-19-2021 KENALOG - 10 mg Erica Dymon d Other [employer] Other 05-11-2021 Pfizer-BioNTech COVID-19 Vacc 30 MCG/0.3ML Intramuscular Suspension Eliceo R Kaleigha Work Phone: [facility] Work Phone: 04-20-2021 Pfizer-BioNTech COVID-19 Vacc 30 MCG/0.3ML Intramuscular Suspension Eliceo R Kaftan Work Phone: [facility] 250 DO Work Phone: 09-02-2020 influenza, injectabl e, quadrivalent, preservative free Eliceo R Stephonleigha Work Phone: [facility] Work Phone: 08-06-2020 influenza, injectabl e, quadrivalent, preservative free Eliceo R Kajeromean Work Phone: [facility] 250 DO Work Phone: 06-22-2020 tetanus toxoid, reduced diphtheria toxoid, and acellular pertussis vaccine, adsorbed Eliceo R Dalia Work Phone: [facility] 250 DO Work Phone: 02-01-2020 Toradol per 15 mg Beto Lazo papi Other [employer] Other 07-15-2018 influenza, seasonal, injectable, preservative free Eliceo Gómez Work Phone: [facility] [place] [facility] DO Work Phone: 07-14-2016 Rocephin 500 mg Beto ellis Other [employer] Other 05-12-2008 hepatitis B vaccine, adult dosage Eliceo Gómez Work Phone: [facility] Work Phone: 04-11-2008 hepatitis B vaccine, adult dosage Eliceo Gómez Work Phone: [facility] Work Phone: Medications Current Medications Medication Drug Class(es) Dates [...] by yancy th three times a day. acetaminophen 325 mg [...] T AB PO Q6H September 20, 2017 1:00am October 01, 2018 10:41am acyclovir 400 mg oral tablet (13 sources) Herpesvirus Nucleoside Analog DNA Polymerase Inhibitor, Herpes Simplex Virus Nucleoside Analog DNA Polymerase Inhibitor, Herpes Zoster Virus Nucleoside Analog DNA Polymerase Inhibitor Start: 11-29-2020 take 1 tablet by mouth every twelve hours [id number] 200 actuat albuterol 0.09 mg/actuat metered dose [...] on above: inhale 2 puffs by mo [facility] INTO THE LUNGS every 4 hours if needed alendronic acid 70 mg oral tablet (3 sources) Bisphosphonate Start: 06-05-20 take 1 tablet by mouth every week Alendronate (Fosamax) 70 mg Tablet Active 70 MG PO every week June 05, 2023 12:00am ARIPiprazole 300 mg extended release prefilled syringe [...] 2017 1:00am October 01, 2018 10:40am ARIPiprazole mon ohydrate (ABILIFY MAINTENA) 300 mg [...] Tablet Active 20 MG PO Daily June 05, 2023 12:00am Comment on above: Take 20 mg by mouth once daily. celecoxib 200 mg oral capsule (15 sources) Nonsteroidal Anti-inflammatory Drug Start: 01-07-20 take 1 capsule by mouth twice daily celecoxib (CELEBREX) 200 mg capsule take 1 capsule by mouth twice a day if needed 0 01/07/2024 Active Start: 06-18-2019 End: 02-18-2020 take 1 tablet by mouth once daily Celecoxib Discontinued 1 TAB PO Daily June 18, 2019 12:00am February 18, 2020 10:25am take 1 capsule by mo uth in the morning, then take 1 capsule by mouth at bedtime celecoxib (CeleBREX) 200 mg capsule Take 1 capsule (200 mg total) by mouth in the morning and 1 capsule (200 mg total) before bedtime. 0 Active Comment on above: take 1 capsule by mo uth twice a day if needed cholecalciferol 0.125 mg oral tablet (20 sources) Vitamin D Start: 03-11-2024 take 1 tablet by mouth once daily Vitamin D3 125 MCG (5000 UT) per tablet Take 1 tablet by mouth daily. 90 tablet 3 03/11/2024 Active Start: 05-12-2023 take 1 capsule by mo uth once daily Cholecalciferol (Vitamin D3) (Vitamin D3) 50 mcg (2,000 unit) capsule Active 2000 UNIT PO Daily June 05, 2023 12:00am End: 01-25-2024 take 1 capsule by mouth once daily Cholecalciferol, Vitamin D3, 25 mcg (1,000 unit) cap Take 1,000 Units by mouth once daily. 0 01/25/2024 Discontinued (Course of therapy completed) Cholecalciferol, Vitamin D3, (VITAMIN D) 25 mcg (1,000 unit) cap Take 1,000 Units by mouth once daily. 0 Active Comment on above: Take 1,000 Units by mouth once daily. 168 hr cloNIDine 0.15977 mg/hr transdermal system (3 sources) Central alpha-2 Adrenergic Agonist Start: 3 cloNIDine [...] Dexlansoprazole (Dexilant) 60 mg Capsule,Biphase Delayed Releas (3 sources) Start: 06-05-2023 take 1 capsule by mouth once daily Dexlansoprazole (Dexilant) 60 mg Capsule,Biphase Delayed Releas Active 60 MG PO Daily June 04, 2023 11:00pm Start: 06-05-2023 take 1 capsule by mo [facility] once daily Dexlansoprazole (Dexilant) 60 mg [...] ml enoxaparin sodium 100 mg/ml prefilled syringe (3 sources) Low Molecular Weight Heparin Start: 06-05-2023 inject 40 mg by subcutaneous injection once daily Enoxaparin Active 40 MG SUBCUT Daily June 05, 2023 12:00am estradiol 0.1 mg/ml vaginal cream (9 sources) Estrogen Start: 03-14-2024 estradiol (ESTRACE) 0.01 [...] 19, 2019 12:00am February 18, 2020 10:25am eszopiclone 3 mg oral tablet (13 sources) Start: 06-05-2023 take 1 tablet by mouth once daily at bedtime Eszopiclone (Lunesta) 3 mg Tablet Active 3 MG PO Daily at bedtime June 05, 2023 12:00am famotidine 40 mg oral tablet (9 sources) [...] puff(s) by in halation in the morning wbxlljjzamc-pzxltqjac-itrkkmek (TRELEGY ELLIPTA) 100-62.5-25 mcg blister with device Indications: Asthma, unspecified asthma severity, unspecified whether complicated, unspecified whether persistent Inhale 1 puff in the morning. 60 each 5 05/31/2022 Active take 1 puff(s) by in halation once daily rccblwncwvh-nxctgppks-hrdvjuyo (TRELEGY ELLIPTA) 100-62.5-25 mcg Inhale 1 Puff [...] sources) Nonsteroidal Anti-inflammatory Drug Start: 4 End: 4 take 1 tablet by mouth every six [...] inulin 200 mg / lactobacillus rhamnosus gg [id number] unt oral capsule (1 source) Start: End: take 1 capsule by mouth once daily lactobacillus rhamnosus (CULTURELLE) 10 billion cell -200 mg capsule Take 1 capsule by mouth once daily. 30 capsule 0 06/07/2022 07/07/2022 Active Comment on above: Take 1 capsule by [facility] once daily. iv contrast (will be [...] mg lisdexamfetamine dimesylate 50 mg oral capsule (18 sources) Central Nervous System Stimulant Start: 01-22-2024 [...] 18, 2020 12:00am June 05, 2023 10:13am Comment on above: Take 1 capsule by mo [facility] every afternoon. LORazepam 1 mg oral tablet (14 sources) Benzodiazepine Start: take 1 tablet by mouth once daily for anxiety LORazepam (ATIVAN) 1 MG tablet take 1 tablet by mouth once daily if needed for anxiety 0 07/19/2023 Active Start: 06-05-2023 take 1 mg by mouth twice daily Lorazepam Active 1 MG PO Twice daily June 05, 2023 12:00am take 1 tablet by yancy every twenty-four hours LORazepam 0.5 MG 1 tablet at bedtime as needed Orally Once a day Active omeprazole 40 mg delayed release oral capsule (20 sources) Proton Pump Inhibitor Start: 03-06-2024 take 1 capsule by mouth once daily omeprazole [address] capsule Indications: [place] grade D esophagitis Take 1 capsule by mouth daily. 90 capsule 2 03/06/2024 Active Start: 09-13-2017 End: 06-05-2023 take 40 mg by mouth twice daily Omeprazole Discontinued 40 MG PO Twice daily September 13, 2017 1:00am June 05, 2023 10:13am Omeprazole Not-T aking ondansetron 4 mg disintegrating [...] Comment on above: Take 1 tablet by ynacy th every 6 hours as needed for [...] Nonergot Dopamine Agonist Start: 3 take 1 mg by mouth once daily [...] days. traMADol hydrochloride 50 mg oral tablet (13 sources) Opioid Agonist Start: 08-09-2023 take 1 [...] bedtime June 05, 2023 12:00am Start: 03-04-2022 End: 01-25-2024 take 4 tablets [...] 2018 1:17pm take 2 tablets by mo [facility] at bedtime traZODone HCl - 100 MG Oral Tablet TAKE 2 TABLETS AT BEDTIME. Quantity: 0 Refills: 0 Ordered: 13-Jun-2023 DO Active take [facility] traZODone HCl - 150 [...] mg / caffeine 65 mg oral tablet (6 sources) Platelet Aggregation Inhibitor, Nonsteroidal Anti-inflammatory Drug, Central Nervous System Stimulant, Methylxanthine Start: 09-13-2017 End: 10-01-2018 take 1 tablet by mouth every four to six hours Aspirin-Acetaminop hen-Caffeine (Excedrin Migraine) 250-250-65 mg Tablet Discontinued 1 - 2 TAB PO EVERY 4-6 HOURS September 13, 2017 1:00am October 01, 2018 10:40am ALPRAZolam 1 mg oral tablet (6 sources) Benzodiazepine Start: 09-13-2017 End: 10-01-2018 take 1 tablet by mouth three times daily Alprazolam Discontinued 1 TAB PO Three times daily September 13, 2017 1:00am October 01, 2018 10:40am amitriptyline hydrochloride 25 mg oral tablet (6 sources) Tricyclic Antidepressant Start: 02-18-2020 End: 06-05-2023 take 125 mg by mouth once daily Amitriptyline Discontinued 125 MG PO Daily February 18, 2020 12:00am June 05, 2023 10:13am betamethasone 0.5 mg/ml topical cream (2 sources) Corticosteroid End: 12-20-2023 betamethasone dipropionate 0.05 % cream Apply 1 Application topically in the morning and 1 Application before bedtime. 0 12/20/2023 Discontinued (Therapy completed) brexpiprazole 3 mg oral tablet (6 sources) Atypical Antipsychotic Start: 02-18-2020 End: 06-05-2023 take 1 tablet by mouth once daily Brexpiprazole (Rexulti) 3 mg Tablet Discontinued 3 MG PO Daily February 18, 2020 12:00am June 05, 2023 10:13am calcium chloride 0.0014 meq/ml / potassium chloride [...] 500 mg cephalexin 500 mg oral capsule (6 sources) Cephalosporin Antibacterial Start: 09-20-20 17 End: 10-01-20 18 take 1 capsule by mouth every eight hours Cephalexin (Keflex) 500 mg capsule Discontinued 500 MG PO Q8H 21 September 20, 2017 1:00am October 01, 2018 10:40am cetirizine hydrochloride 5 mg oral tablet (7 sources) Histamine-1 Receptor Antagonist Start: 10-15-20 18 End: 12-19-19 19 Cetirizine Discontinued 1 TAB PO As Directed October 15, 2018 1:00am December 19, 2018 1:13pm take 1 tablet by mouth once alreen y Cetirizine 10 MG tablet Take 1 [...] 13, 2017 1:00am October 01, 2018 10:41am End: 01-25-2024 cyclobenzaprine (FLEXERIL) 1 0 mg [...] / sennosides, mcfp 8.6 mg oral tablet (6 sources) Start: 2016 End: 2017 take 2 tablets by mouth twice daily Sennosides-Docusate Sodium (Dok Plus) 8.6-50 mg Tablet Discontinued 2 TAB PO Twice daily 40 September 20, 2017 1:00am October 01, 2018 10:42am 24 hr fexofenadine hydrochloride 180 mg / pseudoephedrine hydrochloride 240 mg extended release oral tablet (6 sources) alpha-Adrenergic Agonist, Histamine-1 Receptor Antagonist Start: 2018 End: 2018 take 1 tablet by mouth once daily in the morning, then take 1 tablet by mouth every twenty-four hours Fexofenadine-Pseudoeph edrine (Ember-D 24 Hour) 180-240 mg Tablet Extended Release 24 Hr Discontinued 1 TAB PO Every morning December 19, 2018 1:00am June 18, 2019 3:04pm fluconazole 150 mg oral tablet (6 sources) Azole Antifungal Start: 2019 End: 2022 Fluconazole (Diflucan) 150 mg tablet Discontinued 150 MG PO Once 1 February 18, 2020 12:00am June 05, 2023 10:13am take one PO, if still symptomatic then take another pill in 72 hrs fluticasone propionate 0.05 mg/actuat metered dose nasal spray (20 sources) Corticosteroid Start: 2017 End: 2022 Fluticasone Propionate (Flonase Allergy Relief) 50 mcg/actuation Duson,Suspension Discontinued 2 SPRAY INTRANASAL Daily October 15, 2018 1:00am June 18, 2019 3:04pm Comment on above: Use 1 Duson in each nostril once daily. Fluticasone Propion-Salmeterol (12 sources) Corticosteroid, beta2-Adrenergic Agonist Start: 2018 End: [...] on above: Take 2 capsules by m outh three times a day as needed for up to 10 days. 1 ml galcanezumab-gnlm 120 mg/ml prefilled syringe (20 sources) End: 01-25-2024 galcanezumab-gnlm (EMGALITY SYRINGE) 120 mg/mL syringe Inject subcutaneously once every month. Do not shake. 0 01/25/2024 Discontinued (Course of therapy completed) Comment on above: Inject subcutaneousl y once every month. Do not shake. hydrOXYzine hydrochloride 50 mg oral tablet (12 sources) Antihistamine Start: 02-18-2020 End: 06-05-2023 take 50 mg by mouth once daily at bedtime Hydroxyzine Hcl Discontinued 50 MG PO Daily at bedtime February 18, 2020 12:00am June 05, 2023 10:13am Start: 12-19-2018 End: 06-18-2019 take 25 mg by mouth twice daily Hydroxyzine Hcl Discontinued 25 MG PO Twice daily December 19, 2018 1:00am June 18, 2019 3:04pm lactobacillus rhamnosus gg [id number] unt oral capsule (20 sources) Start: 06-09-2022 [...] Discontinued Start: 12-27-2021 take 1 capsule by [facility] once daily lactobacillus rhamnosus (CULTURELLE) 10 billion cell capsule Take 1 capsule by mouth once daily. 30 capsule 0 12/27/2021 Active Comment on above: Take 1 capsule by mo [facility] once daily. lamoTRIgine 200 mg oral tablet [...] 2018 1:00am December 19, 2018 1:14pm take 1 tablet by yancy once daily lamoTRIgine 25 MG tablet Take 1 tablet by mouth daily. Active take 1 tablet by yancy th once daily lamoTRIgine dispersible/chewable (LAMICTAL) 25 mg tablet Take 25 mg by mouth once daily. 0 Active take 2 tablets by mo ut in the morning lamoTRIgine (LaMICtal) 25 mg tablet Take 2 tablets (50 mg total) by mouth in the morning. 0 Active Comment on above: Take 25 mg by mouth once daily. linaclotide (6 sources) Guanylate Cyclase-C Agonist Start: 10-01-2018 End: [...] mL lurasidone hydrochloride 40 mg oral tablet (6 sources) Atypical Antipsychotic Start: 06-18-2019 End: 02-18-2020 take 1 tablet by mouth once daily Lurasidone (Latuda) 40 mg tablet Discontinued 60 MG PO Daily June 18, 2019 12:00am February 18, 2020 10:26am methylphenidate hydrochloride 20 mg oral tablet (6 sources) Central Nervous System Stimulant Start: 09-13-2017 [...] to surgery. mirtazapine 15 mg oral tablet (6 sources) Start: End: take 2 tablets by mouth once daily Mirtazapine (Remeron) 15 mg Tablet Discontinued 30 MG PO Daily December 19, 2018 1:00am February 18, 2020 10:26am montelukast 10 mg oral tablet (6 sources) Leukotriene Receptor Antagonist Start: End: take [...] Comment on above: Take 2 tablets by [facility] as directed. Take 2 tablet at 6pm, 7pm, and 11pm the evening prior to surgery. nitrofurantoin, macrocrystals 25 mg / nitrofurantoin, monohydrate 75 mg oral capsule (9 sources) Nitrofuran Antibacterial Start: End: take 1 capsule by mouth twice daily at mealtime Nitrofurantoin Monohyd/M-Cryst (Macrobid) 100 mg capsule Discontinued 100 MG PO Twice daily 10 February 18, 2020 12:00am June 05, 2023 10:13am must administer with a meal/food Comment on above: Take 1 capsule by [facility] twice daily. nystatin [id number] unt/ml topical cream (20 sources) Polyene Antifungal [...] chloride 10 mg extended release oral tablet (6 sources) Cholinergic Muscarinic Antagonist Start: 10-01-20 18 End: 06-19-20 19 take 1 tablet by mouth once daily Oxybutynin Chloride (Ditropan Xl) 10 mg Tablet Extended Release 24hr Discontinued 10 MG PO Daily October 01, 2018 1:00am June 19, 2019 1:23pm phenazopyridine hydrochloride 200 mg oral tablet (6 sources) Start: 02-18-20 End: 06-05-20 take 1 tablet by mouth every eight hours Phenazopyridine (Pyridium) 200 mg tablet Discontinued 200 MG PO Q8H 6 2 February 18, 2020 12:00am June 05, 2023 10:13am polyethylene glycol 3350 [id number] mg powder for oral solution (3 sources) [...] 01, 2018 1:00am October 15, 2018 3:24pm take 2 capsules by m [facility] three times daily pregabalin 25 MG capsule [...] Comment on above: [facility] psyllium 520 mg oral capsule (3 sources) Start: 12-27-2021 End: 02-08-2022 psyllium Husk (METAMUCIL) 0.52 gram capsule Take 1 capsule by mouth as directed. As needed for constipation 0 12/27/2021 02/08/2022 Discontinued (Course of therapy completed) Comment on above: Take 1 capsule by mo [facility] as directed. As needed for constipation QUEtiapine 200 mg oral tablet (6 sources) Atypical Antipsychotic Start: 10-01-2018 End: 12-19-2018 [...] on above: Take 2 tablets by mo [facility] three times daily as needed. simethicone in [...] on above: Take 1,000 mcg by mo [facility] once daily. vortioxetine 10 [...] Take 10 mg by mouth once daily. Payers Date Payer Category Payer Self-pay [id number] 2022 Unknown 2021 Medicaid [employer] MEDICAID [id number] 2021-Present [phone] [address] [place] [address] Medicaid [id number]. [id number] 2021 Medicaid [id number] 1.13.159.2.7.3. [id number] 1972 Unknown [id number] 2.16.840.1.629244.3.579.2.176 1972 Unknown [id number] 2.16.840.1.923140.3.579.2.593 1972 Unknown [id number] 2.16.840.1.788848.3.579.2.593 1972 Unknown [id number] 2.16.840.1.511578.3.579.2.593 1972 Unknown [id number] 2.16.840.1.265571.3.579.2.593 1972 Unknown [id number] 2.16.840.1.220999.3.579.2.593 1972 Unknown [id number] 2.16.840.1.234883.3.579.2.593 1972 Unknown [id number] 2.16.840.1.255496.3.579.2.593 1972 Unknown [id number] 2.16.840.1.176706.3.579.2.593 1972 Unknown [id number] 2.16.840.1.668048.3.579.2.593 1972 Unknown [id number] 2.16.840.1.358567.3.579.2.593 1972 Unknown [id number] 2.16.840.1.554175.3.579.2.593 1972 Unknown [id number] 2.16.840.1.522163.3.579.2.593 1972 Unknown [id number] 2.16.840.1.542195.3.579.2.593 1972 Unknown [id number] 2.16.840.1.643970.3.579.2.593 1972 Unknown [id number] 2.16.840.1.190987.3.579.2.593 1972 Unknown [id number] 2.16.840.1.593952.3.579.2.593 1972 Unknown [id number] 2.16.840.1.021836.3.579.2.593 1972 Unknown [id number] 2.16.840.1.699515.3.579.2.297 1972 Unknown [id number] 2.16.840.1.752394.3.579.2.297 1972 Unknown [id number] 2.16.840.1.458826.3.579.2.356 1972 Unknown [id number] 2.16.840.1.717692.3.579.2.356 1972 Unknown [id number] 2.16.840.1.788882.3.579.2.356 1972 Unknown [id number] 2.16.840.1.859500.3.579.2.1286 1972 Unknown [id number] 2.16.840.1.852259.3.579.2.1286 1972 Unknown [id number] 2.16.840.1.828267.3.579.2.1286 1972 Unknown [id number] 2.16.840.1.814908.3.579.2.128 1972 Unknown [id number] 2.16.840.1.120958.3.579.2.1286 1972 Unknown [id number] 2.16.840.1.939176.3.579.2.1286 1972 Unknown [id number] 2.16.840.1.246890.3.579.2.6 1972 Unknown [id number] 2.16.840.1.005968.3.579.2.1286 1972 Unknown [id number] 2.16840.1.661616.3.579.2.594 1972 Unknown [id number] 2.840.1.401390.3.579.2.594 1972 Unknown [id number] 2.840.1.139223.3.579.2.594 1972 Unknown [id number] 2.840.1.858369.3.579.2.594 1972 Unknown [id number] 2.840.1.487273.3.579.2.594 1972 Unknown [id number] 2.840.1.866821.3.579.2.196 1972 Unknown [id number] 2.840.1.004382.3.579.2.196 1972 Unknown [id number] 2.840.1.767477.3.579.2.196 1972 Unknown [id number] 2.16.840.1.335331.3.579.2.196 1972 Unknown [id number] 2.16840.1.111377.3.579.2.196 1972 Unknown [id number] 2.16840.1.577893.3.579.2.196 1972 Unknown [id number] 2.16840.1.567411.3.579.2.196 1972 Unknown [id number] 2.16.840.1.844836.3.579.2.196 1972 Unknown [id number] 2.16.840.1.462877.3.579.2.1258 1972 Unknown [id number] 2.16.840.1.219193.3.579.2.1258 1972 Unknown [id number] 2.16.840.1.630295.3.579.2.1258 1972 Unknown [id number] 2.16.840.1.144958.3.579.2.1258 1972 Unknown [id number] 2.16.840.1.892451.3.579.2.1258 1972 Unknown [id number] 2.16.840.1.828591.3.579.2.1258 1972 Unknown [id number] 2.16840.1.445714.3.579.2.1258 1972 Unknown [id number] 2.16.840.1.333166.3.579.2.1258 1972 Unknown [id number] 2.16.840.1.125060.3.579.2.1258 1972 Unknown [id number] 2.16.840.1.479386.3.579.2.1258 1972 Unknown [id number] 2.16840.1.889586.3.579.2.1258 1972 Unknown [id number] 2.16.840.1.050635.3.579.2.1258 1972 Unknown [id number] 2.16.840.1.942169.3.579.2.1258 1972 Unknown [id number] 2.16.840.1.621733.3.579.2.1258 1972 Unknown [id number] 2.16.840.1.374488.3.579.2.1258 1972 Unknown [id number] 2.16.840.1.871792.3.579.2.1259 1972 Unknown [id number] 2.16.840.1.819159.3.579.2.1259 1972 Unknown [id number] 2.16.840.1.839695.3.579.2.1259 1959 Medicaid [id number] 1959 Unknown [id number] Unknown [id number] Unknown [id number] 2.16.840.1.197091.3.579.2.531 Unknown [id number] 2.16.840.1.943491.3.579.2.531 Unknown [id number] 2.16.840.1.628164.3.579.2.531 Plan of Treatment Date Care Activity Detail Author Start: 06-22-2030 Administration of diphtheria + tetanus + acellular pertussis vaccine DTAP/TDAP/TD VACCINE (2 - Td or Tdap) [facility] Start: 06-22-2030 DTaP,Tdap and Td Vaccines (2 - Td or Tdap) DTaP,Tdap and Td Vaccines (2 - Td or Tdap) [facility] Start: 06-22-2030 Tetanus vaccination TETANUS [facility] Start: 06-22-2030 Urine microalbumin profile DTaP,Tdap,Td Vaccine (2 - Td or Tdap) [facility] Start: 11-01-2028 Lipid panel Lipid Screening [facility] wily [facility] Start: 12-05-2027 COLORECTAL CANCER SCREENING COLORECTAL CANCER SCREENING [facility] Start: 12-05-2027 Screening for malign ant neoplasm of colon [facility] Start: 12-05-2027 [facility] Start: 03-02-2027 Lipid 1996 panel - S jay or Plasma Lipid Screening [facility] Start: 03-02-2027 LIPID SCREEN LIPID SCREEN [facility] Start: 12-20-2026 Diabetes Screening Diabetes Screenin g [facility] Start: 08-12-2026 Diabetes Screening Diabetes Screenin g [facility] Start: 04-05-2025 DIABETES SCREEN DIABETES SCREEN [facility] Start: 04-05-2025 Diabetes Screening Diabetes Screenin g [facility] Start: 03-14-2025 DIABETES SCREEN DIABETES SCREEN [facility] Start: 01-09-2025 Adult BMI Screening Adult BMI Screen ing [facility] Start: 01-09-2025 Tobacco Screening Tobacco Screening [facility] Start: 12-26-2024 DIABETES SCREEN DIABETES SCREEN [facility] Start: 12-20-2024 Adult BMI Screening Adult BMI Screen ing [facility] Start: 12-20-2024 Tobacco Screening Tobacco Screening [facility] Start: 10-31-2024 Screening for malign ant neoplasm of breast Mammogram Screening [facility] Start: 10-23-2024 Adult BMI Screening Adult BMI Screen ing [facility] Start: 10-23-2024 Depression Screening Depression Scre ening [facility] Start: 10-23-2024 Tobacco Screening Tobacco Screening [facility] Start: 10-10-2024 BP Controlled (<130/80) BP Controlle d (<130/80) [facility] Start: 05-31-2024 Zoster vaccine hzv l annika for subcutaneous use ZOSTER (SHINGLES) VACCINE (2 of 2) [facility] Start: 04-18-2024 End: 04-18-2024 Patient encounter procedure 04/18/2024 1:30 PM EDT Office Visit [facility] [address] [place] [id number] Pauline Christensen MD [address] [place] [address], [address] [place] [address] [facility] Start: 01-10-2024 End: 01-10-2024 Patient encounter procedure 01/10/2024 12:45 PM EST Office Visit [facility] [place] - [facility] [address] [place] [address], [address] [place] [id number] Cullen Dawkins MD [address] [place] [address] [address] [place] [address] [facility] - [facility] Start: 01-02-2024 End: 01-02-2024 Admission to same day surgery center 01/02/2024 11:00 AM EST - 01/02/2024 3:30 PM EST Surgery [facility] [address] [place] [address] Cullen Dawkins MD [address] [place] [address] [address] [place] [address] INSERTION STIMULATOR NERVE HYPOGLOSSAL [32522 (CPT )] [facility] Comment on above: INSERTION STIMULATOR NERVE HYPOGLOSSAL [47160 (CPT )] Start: 01-02-2024 End: 01-02-2024 INSERTION STIMULATOR NERVE HYPOGLOSSAL INSERTION STIMULATOR NERVE HYPOGLOSSAL CHUCKIE (obstructive sleep apnea) 01/02/2024 11:00 AM EST [facility] Start: 01-02-2024 Subsequent hospital visit by physician 01/02/2024 11:00 AM EST Hospital Encounter [place] [address] [place] [address] Cullen Dawkins MD [address] [place] [address] [address] [place] [id number] [facility] Surgery Start: 11-06-2023 Behavioral Health Screening Behavioral Health Screening [facility] Start: 11-06-2023 Depression Assessment Depression Ass essment [facility] Start: 09-27-2023 End: 12-27-2023 Bacteria identified in Urine by Culture URINE CULTURE Microbiology Routine Burning with urination Expected: 09/27/2023, Expires: 12/27/2023 [facility] Work Phone: Comment on above: Expected: 09/27/2023 , Expires: 12/27/2023 Start: 09-14-2023 Screening for malign ant neoplasm of breast MAMMOGRAM [facility] Start: 08-01-2023 FUV, Provider: Dipti Anaya, Status: Pen, Time: 11:00 AM FUV, Provider: Dipti Anaya, Status: Gopal, Time: 11:00 AM [facility] [address] DO Work Phone: Start: 07-07-2023 Covid-19 Vaccine ( season) Covid-19 Vaccine () [facility] Start: 07-07-2023 Influenza vaccination C [facility] Start: 07-07-2023 Influenza vaccinatio n given INFLUENZA VACCINE (#1) [facility] Start: 06-05-2023 [facility] Start: 04-22-2023 BP CONTROLLED (<130/80) BP CONTROLLE D (<130/80) [facility] Start: 03-14-2023 BP CONTROLLED (<130/80) BP CONTROLLE D (<130/80) [facility] Start: 02-18-2023 BP CONTROLLED (<130/80) BP CONTROLLE D (<130/80) [facility] Start: 02-08-2023 BP CONTROLLED (<130/80) BP CONTROLLE D (<130/80) [facility] Start: 01-18-2023 BP CONTROLLED (<130/80) BP CONTROLLE D (<130/80) [facility] Start: 11-06-2022 DEPRESSION ASSESSMENT DEPRESSION ASS ESSMENT [facility] Start: 09-22-2022 [facility] Start: 08-02-2022 End: 08-25-2023 Ct abdomen & pelvis w/contrast material CT ABD/PEL W IVCON Radiology Routine Periumbilical abdominal pain Expected: 08/02/2022, Expires: 08/25/2023 [facility] Work Phone: Comment on above: Expected: 08/02/2022 , Expires: 08/25/2023 Start: 07-07-2022 Influenza vaccination C [facility] Start: 06-28-2022 Mammography [facility] Start: 2022 Administration of varicella zoster vaccine Zoster (Shingles) Vaccine (1 of 2) [facility] Start: 2022 COVID-19 VACCINE (4 - Booster for Pfizer series) COVID-19 VACCINE (4 - Booster for Pfizer series) [facility] Start: 2022 SHINGRIX VACCINE (1 of 2) SHINGRIX VACCINE (1 of 2) [facility] Start: 2022 Zoster vaccine hzv l annika for subcutaneous use ZOSTER (SHINGLES) VACCINE (1 of 2) [facility] Start: 04-01-2022 End: 06-01-2022 CBC W Auto Differential panel - Blood CBC + DIFF Lab Routine Follow-up examination after colorectal surgery Expected: 04/01/2022, Expires: 06/01/2022 [facility] Work Phone: Comment on above: Expected: 04/01/2022 , Expires: 06/01/2022 Start: 04-01-2022 End: 06-01-2022 Comprehensive metabolic 2000 panel - Serum or Plasma COMP METABOLIC PANEL Lab Routine Follow-up examination after colorectal surgery Expected: 04/01/2022, Expires: 06/01/2022 [facility] Work Phone: Comment on above: Expected: 04/01/2022 , Expires: 06/01/2022 Start: 04-01-2022 End: 06-01-2022 TYPE AND SCREEN,30 DAY TYPE AND SCREEN,30 DAY Blood Bank Routine Follow-up examination after colorectal surgery Expected: 04/01/2022, Expires: 06/01/2022 [facility] Work Phone: Comment on above: Expected: 04/01/2022 , Expires: 06/01/2022 Start: 01-19-2022 COVID-19 VACCINE (4 - Booster for Pfizer series) COVID-19 VACCINE (4 - Booster for Pfizer series) [facility] Start: 01-19-2022 COVID-19 VACCINE (4 - Pfizer series) COVID-19 VACCINE (4 - Pfizer series) [facility] Start: 11-06-2021 DEPRESSION ASSESSMENT DEPRESSION ASS ESSMENT [facility] Start: 07-07-2021 Influenza vaccination INFLUENZA (#1) [facility] Start: 03-24-2021 Screening for malign ant neoplasm of colon COLORECTAL CANCER SCREENING DISCUSSION [facility] Start: 04-05-2020 Screening for malign ant neoplasm of breast MAMMOGRAM SCREENING DISCUSSION [facility] Start: 2017 COLOGUARD (FIT-DNA) COLOGUARD (FIT-D NA) [facility] Start: 2017 Colonoscopy COLONOSCOPY [facility] Start: 2017 COLORECTAL CANCER SCREENING COLORECTAL CANCER SCREENING [facility] Start: [address] COLONOGRAPHY [facility] Start: 2017 FECAL OCCULT BLOOD FECAL OCCULT BLOO D [facility] Start: 2017 LIPID SCREEN LIPID SCREEN [facility] Start: 2017 Screening for malign ant neoplasm of colon [facility] Start: 2017 SIGMOIDOSCOPY SIGMOIDOSCOPY [facility] Start: 2012 Lipid panel LIPID SCREENING [facility] Start: 2012 Mammography MAMMOGRAM [facility] Start: 10-11-2008 Hepatitis B vaccination HEP B VACCINE (3 of 3 - 19+ 3-dose series) [facility] Start: 10-11-2008 Hepatitis B Vaccine (3 of 3 - 19+ 3-dose series) Hepatitis B Vaccine (3 of 3 - 19+ 3-dose series) [facility] Start: 2002 HPV TESTING HPV TESTING [facility] Start: 2002 Screening for malign ant neoplasm of cervix HPV Testing [facility] Start: 1993 PAP TESTING PAP TESTING [facility] Start: 1993 Screening for malign ant neoplasm of cervix [facility] Start: 1991 Urine microalbumin profile [facility] Start: 1990 Adult BMI Follow Up Plan Adult BMI Follow Up Plan [facility] Start: 1990 ANNUAL PCP TEAM DOMESTIC TRAVEL CONSULTANT ALEKSANDAR DISEASE VISIT ANNUAL PCP TEAM CHRONIC DISEASE VISIT [facility] Start: 1990 ANNUAL WELLNESS VISIT ANNUAL WELLNES S VISIT [facility] Start: 1990 BP CONTROLLED (<130/80) BP CONTROLLE D (<130/80) [facility] Start: 1990 HEPATITIS C SCREENING HEPATITIS C [facility] Start: 1990 Hepatitis C screening Hepatitis C [facility] Start: 1990 HIV SCREENING HIV SCREENING [facility] Start: 1990 HIV screening HIV Screening [facility] Start: 1987 HIV screening HIV SCREENING DISCUSSION [facility] Start: 1984 Adult depression screening assessment DEPRESSION SCREENING [facility] Start: 1984 Depression screening using PHQ-9 (Patient Health Questionnaire 9) score DEPRESSION SCREENING [facility] Start: 1978 PNEUMOCOCCAL (1 - PCV) PNEUMOCOCCAL (1 - PCV) [facility] Start: 1978 Pneumococcal vaccination Pneum ococcal Vaccine (1 - PCV) [facility] Start: 1972 HEPATITIS B (1 of 3 - 3-dose series) HEPATITIS B (1 of 3 - 3-dose series) [facility] Start: 1972 Hepatitis B Vaccine (1 of 3 - 3-dose series) Hepatitis B Vaccine (1 of 3 - 3-dose series) [facility] Start: 1972 Hepatitis C screening HEPATITI S C VIRUS SCREENING [facility] Start: 1972 HPV/COTEST HPV/COTEST [facility] Start: 1972 Screening for malign ant neoplasm of cervix [facility] 12 lead ECG EKG 12 lead ECG REYNA 08/12/2023 12:28 AM [facility] Work Phone: CT Abdomen and Pelvi s W contrast IV CT Abdomen / Pelvis With IV Contrast ONLY Imaging STAT 08/12/2023 5:42 AM [facility] End: 01-12-2024 EGD - THERAPEUTIC, EUS, OR TUBE INTERVENTIONS EGD - THERAPEUTIC, EUS, OR TUBE INTERVENTIONS Endoscopy Routine Gastroparesis 1 Occurrences starting 01/11/2023 until 01/12/2024 [facility] Work Phone: Comment on above: 1 Occurrences starti ng 01/11/2023 until 01/12/2024 FAT, FECAL QUAL FAT, FECAL QUAL Lab Routine Diarrhea due to malabsorption Ordered: 03/15/2023 [facility] Work Phone: Comment on above: Ordered: 03/15/2023 End: 10-11-2023 Gi transit & pres ravinder wireless capsule w/interp CAPSULE ENDOSCOPY SMART Endoscopy Routine Gastroparesis 1 Occurrences starting 10/11/2022 until 10/11/2023 [facility] Work Phone: Comment on above: 1 Occurrences starti ng 10/11/2022 until 10/11/2023 End: 12-17-2023 PAP TITRATION PSG (CPAP, BIPAP, ASV) PAP TITRATION PSG (CPAP, BIPAP, ASV) Procedures Routine CHUCKIE (obstructive sleep apnea) 1 Occurrences starting 11/17/2022 until 12/17/2023 [facility] Work Phone: Comment on above: 1 Occurrences starti ng 11/17/2022 until 12/17/2023 Patient Education Chest Pain, Adult ED [facility] Work Phone: Patient referral [facility] Work Phone: SARS-CoV-2 (COVID-19 ) RNA [Presence] in Respiratory specimen by JOSÉ MIGUEL with probe detection SELF CHECK COVID Microbiology Routine Follow-up examination after colorectal surgery Ordered: 02/09/2022 [facility] Work Phone: Comment on above: Ordered: 02/09/2022 End: 11-30-2023 SIGMOIDOSCOPY SIGMOIDOSCOPY Endoscopy Routine Chronic idiopathic constipation 1 Occurrences starting 11/30/2022 until 11/30/2023 [facility] Work Phone: Comment on above: 1 Occurrences starti ng 11/30/2022 until 11/30/2023 SURG PATH REQUEST [facility] Comment on above: Release Upon Orderin g for 1 Occurrences starting 04/12/2024, 1 completed End: 08-12-2023 Troponin I.cardiac [Mass/volume] in Serum or Plasma Troponin I (One time) Lab Timed Once for 1 Occurrences starting 08/12/2023 until 08/12/2023 [facility] Work Phone: Comment on above: Once for 1 Occurrenc es starting 08/12/2023 until 08/12/2023 URODYNAMICS [facility] URODYNAMICS [facility] Procedures Routine Incomplete bladder emptying Urinary urgency Urinary frequency Nocturia Ordered: 07/31/2023 [facility] Work Phone: Comment on above: Ordered: 07/31/2023 [facility] Problems Active Problems Problem Classification Problem Date [...] Episodic Conditions associated with dizziness or vertigo (9 sources) Postural dizziness; Translations: [Dizziness and giddiness] 02-18-2020 Episodic Esophageal disorders (20 sources) Gastroesophageal reflux disease; Translations: [Gastro-esophageal reflux disease without esophagitis] Onset: 1 10-15-2021 Chronic Esophageal disorders (1 source) Esophagitis; Translations: [[place] grade D esophagitis] 04-12-2024 Episodic Essential hypertension [...] 2 Chronic Other aftercare (1 source) Other [facility] (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; Translations: [OTH TRAFFIC ENUMERATOR CURRENT DRUG THERAPY] Onset: 3 Episodic Other [...] 2 07-07-2022 Chronic Other upper respiratory infections (6 sources) Upper respiratory infection; Translations: [Acute upper [...] Translations: [Cervicalgia] Onset: 1 Resolved: 1 Episodic Sprains and strains (2 sources) Strain of muscle(s) and tendon(s) of peroneal muscle group at lower leg level, right leg, subsequent encounter; Translations: [Strain of muscle(s) and tendon(s) of peroneal muscle group at lower leg level, right leg, initial encounter] Onset: 2 Episodic Unclassified (1 source) PERSONAL HISTORY OF COVID-19; Translations: [PERSONAL HISTORY OF COVID-19] Onset: 3 Unclassified (3 sources) LOW BACK PAIN, UNSPECIFIED; Translations: [LOW BACK PAIN, UNSPECIFIED] Onset: 3 Unclassified (1 source) CONTACT W/AND (SUSP) EXPOS COVID-19; Translations: [CONTACT W/AND (SUSP) EXPOS COVID-19] Onset: 2 Unclassified (1 source) Post-op Insp[employer] Implant Onset: 4 Unclassified (1 source) Other esophagitis without bleeding; Translations: [Other esophagitis without bleeding] Onset: 4 Unclassified (2 sources) Telehealth Audio/video Visit; Translations: [Telehealth Audio/video Visit] Onset: 3 Urinary tract infections (4 sources) Chronic interstitial cystitis; Translations: [Interstitial cystitis (chronic) without hematuria] Onset: 3 09-07-2023 Chronic Urinary tract infections (20 sources) Urinary tract infectious disease; Translations: [Urinary tract infection, site not specified] Onset: 2 02-18-2020 Episodic Viral infection (6 sources) Disease caused by 2019-nCoV; Translations: [COVID-19] [...] 05-10-2022 Resolved: 05-10-2022 Episodic Nonspecific chest pain (12 sources) Chest pain; Translations: [Chest pain, unspecified] [...] duodenum (5 sources) Gastroparesis; Translations: [Gastroparesis] Onset: 10-08-2020 Episodic [...] [CELLULITIS OF ABDOMINAL WALL] Onset: 04-19-2022 Episodic Unclassified (1 source) Other low back [...] Translations: [Other esophagitis without bleeding] Onset: 04-12-2024 Procedures Date Procedure Procedure Detail Performing Clinician Start: 04-30-2024 MRI of right ankle DO Isatu Gómez Work Phone: Start: 04-12-2024 DIAGNOSTIC UPPER ENDOSCOPY Padmaja Ledezma MD, PhD Work Phone: Start: 02-27-2024 BACTERIAL VAGINOSIS NAAT Flower Lopez INNOVATION ANALYST.HOUSE BUILDER Work Phone: Start: 02-27-2024 Iadna trichomonas vaginalis amplified probe tech Flower Lopez INNOVATION ANALYST.HOUSE BUILDER Work Phone: Start: 02-27-2024 Urnls dip stick/tabl et rgnt auto w/o microscopy Flower Lopez INNOVATION ANALYST.HOUSE BUILDER Work Phone: Start: 12-20-2023 Basic metabolic pane [...] Assay of troponin quantitative Lev Ritter APRN HOUSE BUILDER Work Phone: Start: 08-12-2023 Ct abdomen & pelvis w/contrast material Lev Ritter APRN HOUSE BUILDER Work Phone: Start: 08-12-2023 Urnls dip stick/tabl et reagent auto microscopy Lex Salmon MD Work Phone: Start: 08-12-2023 Basic metabolic pane l calcium total Lex Salmon MD Work Phone: Start: 08-12-2023 DARK GREEN TOP Lex buitrago MD Work Phone: Start: 08-12-2023 GOLD TOP Lex urbina MD Work Phone: Start: 08-12-2023 Hepatic function panel Lev Ritter APRN HOUSE BUILDER Work Phone: Start: 08-12-2023 LIGHT BLUE TOP [...] et rgnt auto w/o microscopy Nelsy Chávez INNOVATION ANALYST.HOUSE BUILDER Work Phone: Start: 06-05-2023 Plain chest X-ray [...] - S jay or Plasma Nelsy Chávez INNOVATION ANALYST.HOUSE BUILDER Work Phone: Start: 02-08-2022 Urnls dip stick/tabl et rgnt auto w/o microscopy Magali Mitchell INNOVATION ANALYST.HOUSE BUILDER Work Phone: Start: 12-16-2021 Antibody screen Comment on above: Performed By: #### T SCR30 ####[place] [phone] Start: 10-15-2021 Antibody screen Comment on above: Performed By: #### T SCR30 ####[phone] Start: 06-28-2021 Mammography Mary brewer MD Work Phone: Start: 02-18-2021 H/O: surgery S/P nasal septoplasty C hrluisa sem Start: 02-18-2021 History of tonsillectomy S/P tonsill ectomy Emily Hissem Colonoscopy Eliceo Gómez Work Phone: Hysterectomy Eliceo [...] Tonsillectomy and adenoidectomy Eliceo Gómez Work Phone: Results Test Name Value Interpretation Reference Range Facility MR ankle RT wo conon 024 MR ankle RT wo con [facility] [place] [address] [place] [address] MRI Report Signed Patient: Mary Leal MR#: [id number] : 1970 Acct:[id number] Age/Sex: 54 / F ADM Date: 04/30/24 [facility]: Type: [facility] Attending Dr: Sade Felix DPM MS Copies to: Sade Felix DPM, MS Ordering Provider: Sade Felix DPM, MS Date of Service: 04/30/24 MR/MR ankle RT wo con: M76.71 MRI Right Ankle without contrast TECHNIQUE: Multiplanar T1 and T2-weighted imaging of the LEFT ankle obtained without contrast. COMPARISON: CT of the right ankle 07/26/2023 HISTORY: Right lateral foot and ankle pain with weightbearing CLINICAL QUESTION: FINDINGS: Artifact from subtalar and midfoot fusion hardware. SYNDESMOSIS: Adequate alignment of the distal tibia and fibula THE BONE MARROW: Normal fatty marrow without marrow infiltrative changes. No bone marrow edema. FRACTURE: No fracture identified. LATERAL COLLATERAL LIGAMENT COMPLEX: Intact anterior talofibular ligament. Intact calcaneofibular ligament. Intact posterior talofibular ligament. ANTEROLATERAL COMPARTMENT: No anterolateral impingement findings. PERONEAL TENDONS: Normal peroneal brevis tendon adjacent to the bone. No longitudinal split tear. Normal appearance of the peroneal longus tendon. Normal low signal tendon. Intact superior peroneal retinaculum with normal alignment of the peroneal brevis tendon. Normal appearance of the peroneal tendons behind the retromalleolar grove of the lateral malleolus. Minimal surrounding fluid. No hypertrophy of the peroneal tubercle of the lateral calcaneus BIFURCATE LIGAMENT: Calcaneocuboid and calcaneonavicular ligaments of the bifurcate ligament are intact. The anterior process of the calcaneus is intact without bone marrow edematous changes. Intact the midtarsal joint. DELTOID LIGAMENT: The superficial and deep components of the medial collateral deltoid ligaments are intact. SPRING LIGAMENT: The spring ligament normally intersects the posterior tibial tendon in the talar head with coronal view no findings of tear or thickening. Specifically the superior medial segment is preserved. POSTERIOR TIBIAL TENDON: Normal orientation the posterior tibial tendon behind of the medial malleolus inserting into the navicular bone. Small amount of normal fluid is seen within the tendon sheath which terminates 1-2 cm proximal to the navicular insertion. No distal paratendinitis of the tendon identified. Unremarkable heterogeneous signal intensity of the distal tendon identified. SINUS TARSI: Normal fat-containing sinus tarsi identified without evidence of posterior tibial tendon dysfunction, talocalcaneal or fibulocalcaneal impingement identified. Limited assessment secondary to metallic artifact FLEXOR DIGITORUM LONGUS: Intact. FLEXOR HALLUCIS LONGUS: Intact . Fluid surrounding the flexor hallucis longus is likely a normal finding suggesting communication of the joint. ACHILLES TENDON: Normal homogeneous low signal. Normal thickness with slight concave anterior surface present. No peritendinous edema. No retrocalcaneal bursitis. No Malika deformity. Infiltration No tear of the calcaneal insertion or mid substance. Normal Jhonny's fat-pad. No Achilles tendon insertion enthesophyte. ANTERIOR TIBIAL TENDON:Anterior tibial tendon intact. No surrounding abnormal tendon sheath fluid. PLANTAR FASCIA: 3 fascicles of the plantar fascia are intact. No calcaneal spurring. No reactive bone marrow edema. No adjacent soft tissue edema. MR/MR ankle RT wo con IMPRESSION: Findings suggesting mild tenosynovitis of the peroneal tendons at the level of the retromalleolar groove. Intact syndesmosis. Intact lateral collateral ligaments. No worrisome bone marrow edematous changes. Artifact from fixation hardware limiting assessment. No obvious abnormality of sinus tarsi. Impression dictated by: Andres Bullard M.D.04/30/2024 3:14 PM Dictation Location: [place] [address] Transcribed By: [facility] 04/30/24 1514 Dictated By: Andres Bullard DO 04/30/24 1503 Signed By: 04/30/24 1514 Normal [facility] 29on 04-28-2024 29 Encounter addended b y: Dick Mann MD on: 05/07/2024 7:26 PM Actions taken: Charge Capture section accepted Normal [facility] Documentationon 04-17-2024 Documentation [id number] Darrian Leal en 1970 F Date Provider Department [place] 04/17/2024 [id number] CASTREJON [facility] Heal No family history on file [facility] Letter (Out)on 04-17-2024 Letter (Out) [id number] Darrian Leal en 1970 F Date Provider [facility] 04/17/2024 [id number] CASTREJON [facility] Gerardo Heal No family history on file [facility] DIAGNOSTIC UPPER ENDOSCOPYon 04-12-2024 Radiology Study observation (narrative) [facility] Gastroenterology Patient Name: Mary Leal Procedure Date: 04/12/2024 11:46 AM Date of : 1970 Admit Type: Outpatient Age: 53 Room: [facility] 3 Gender: Female Note Status: Finalized Attending MD: Milagros Franco MD, PHD, [id number] Procedure: Upper GI endoscopy Attending Participation: I personally performed the entire procedure. Indications: Dysphagia, Heartburn Providers: Milagros Franco MD, PHD (Doctor), Stacie Jonhs RN (Nurse), Nawaf Pinzon, Drum Builder (Drum Builder), Everett Maria APRN-BECCA (Anesthesia Staff) Referring MD: [...] verified by the physician, the nurse, the tub chucker and the deburring technician in the procedure room. Mental Status [...] oxygen saturations were monitored continuously. The Endoscope ([id number]) was introduced through the mouth, and advanced [...] examined (more content not included)... LAB, [facility] SURG PATH REQUESTon 04-12-20 Case Report [facility] Comment on above: Result Comment: Surg ical Pathology Report Case: [id number] Authorizing Provider: Milagros Franco MD, Collected: 04/12/2024 12:48 PM PhD Ordering Location: Endoscopy Outpatient Care Received: 04/12/2024 12:57 PM [place] Pathologist: Manish Tom MD Specimens: A) - TISSUE, gastric biopsy r/o HP evaluate for eosiniphils (large forceps) B) - TISSUE, GE Junction r/o Barrets (large forceps) Performed By: #### S URGP #### [facility] (DEFAULT) [address] [place] [address] Clinical History Preop Diagnosis: [place] Grade D esophagitis [K20.80]. Early satiety [R68.81]. Unintentional weight loss [R63.4]. Gastroparesis [K31.84]. Medical History: Gastroesophageal reflux disease. Asthma. Benign essential hypertension. History of colectomy. Gastroparesis. Arthritis. Depression. Migraine. Constipation. Normal [facility] Comment on above: Performed By: #### S URGP #### [facility] (DEFAULT) [address] [place] [address] Gross Description Normal [facility] Comment on above: Result Comment: The [...] dimension. TE 1 Lab Use Only: JobID [id number] Grosser for this case was: Adriana Maradiaga Performed By: #### S URGP #### [facility] (DEFAULT) [address] [address] Microscopic Description A microscopic examination was performed. [facility] Comment on above: Performed By: #### S URGP #### [facility] (DEFAULT) [address] [address] Pathologic Diagnosis [facility] Comment on above: Result Comment: A. S tomach, biopsy: Active erosive esophagitis. No Helicobacter pylori organisms identified. B. GE junction, biopsy: Gastroesophageal squamocolumnar junctional mucosa with reflux pattern of injury. No Vega's specialized columnar epithelium (intestinal metaplasia) identified. Performed By: #### S URGP #### [facility] (DEFAULT) [address] [address] Professional Interpretation Performed at: [facility] Comment on above: Result Comment: [facility] For Immediate Release to [facility] Yes [address] [place] [address] Performed By: #### S URGP #### [facility] (DEFAULT) [address] [place] [address] 36on 04-10-2024 36 Left voicemail to [facility] to schedule Inspire follow up appointment following sleep study on 04/28. Offered 06/05 at 8:30 am or 4:00 pm OR 06/12 at 8:30 am. [facility] Telephoneon 04-10-2024 Telephone [id number] Darrian Leal en 1970 F Date Provider Department Center 04/10/2024 PAULINE SANTACRUZ [facility] SLEEP [facility] No family history on file Reason for Visit and Comments: Appointment [375] [facility] Follow-Upon 04-03-2024 Follow-Up [id number] Darrian Leal en 1970 F Date Provider Department [place] 04/03/2024 PAULINE SANTACRUZ [facility] SLEEP [facility] No family history on file Level of Service:[id number] [place] OFFICE/OUTPATIENT ESTABLISHED MOD MDM 30 MIN Reason for Visit and Comments: Follow-up [750742] - Pt has the Inspire and is here for a follow up. She states it is unbelievable how well it is working for her. She is sleeping through the night, which she hasn't done for years. She is here for a few small adjustments, such as moving it from 6 hours of sleep a night to 8. Normal [facility] CBC AND ELECTRONIC DIFFon Basophils (Bld) [#/Vol] 0.04 10*3/uL Normal 0.00-0.15 [facility] Comment on above: Performed By: #### L [id number] #### [facility] (DEFAULT) [address] [address] Basophils/100 WBC (Bld) 0.6 % Normal [facility] Comment on above: Performed By: #### L [id number] #### [facility] (DEFAULT) [address] [address] DIFF STATUS Electronic Differential Normal [facility] Comment on above: Performed By: #### L AB980 #### [facility] (DEFAULT) [address] [address] Eosinophils (Bld) [#/Vol] 0.08 10*3/uL Normal 0.00-0.42 [facility] Comment on above: Performed By: #### L [id number] #### [facility] (DEFAULT) [address] [address] Eosinophils/100 WBC (Bld) 1.2 % Normal [facility] Comment on above: Performed By: #### L [id number] #### [facility] (DEFAULT) [address] [address] Hematocrit (Bld) [Volume fraction] 40.1 % Normal 34.9-44.3 [facility] Comment on above: Performed By: #### L AB980 #### [facility] (DEFAULT) [address] [address] Hemoglobin (Bld) [Mass/Vol] 12.6 g/dL Normal 11.4-15.2 [facility] Comment on above: Performed By: #### L [id number] #### [facility] (DEFAULT) [address] [address] Immature Grans % 0.5 % Normal [facility] Comment on above: Performed By: #### L [id number] #### [facility] (DEFAULT) [address] [address] Immature Grans Absolute < Normal <=0.08 [facility] Comment on above: Performed By: #### L [id number] #### [facility] (DEFAULT) [address] [address] Lymphocytes (Bld) [#/Vol] 2.05 10*3/uL Normal 1.16-3.51 [facility] Comment on above: Performed By: #### L AB980 #### [facility] (DEFAULT) [address] [address] Lymphocytes/100 WBC (Bld) 31.6 % Normal [facility] Comment on above: Performed By: #### L AB980 #### [facility] (DEFAULT) [address] [address] MCV (RBC) [Entitic vol] 86.6 fL Normal 79.6-97.7 [facility] Comment on above: Performed By: #### L AB980 #### [facility] (DEFAULT) [address] [address] Mean Cell Hgb 27.2 pg Normal 25.9-33.9 [facility] Comment on above: Performed By: #### L AB980 #### [facility] (DEFAULT) [address] [address] Mean Cell Hgb Conc 31.4 g/dL Normal 31.4-35.9 [facility] Comment on above: Performed By: #### L AB980 #### [facility] (DEFAULT) [address] [address] Monocytes (Bld) [#/Vol] 0.47 10*3/uL Normal 0.22-0.87 [facility] Comment on above: Performed By: #### L AB980 #### [facility] (DEFAULT) [address] [place] [address] Monocytes/100 WBC (Bld) 7.3 % Normal [facility] Comment on above: Performed By: #### L AB980 #### [facility] (DEFAULT) [address] [place] [address] Nucleated RBC 0.0 /100 WBC Normal <=0.2 [facility] Comment on above: Performed By: #### L [id number] #### [facility] (DEFAULT) [address] [place] [address] Platelet mean volume (Bld) [Entitic vol] 9.3 fL Normal 8.5-12.2 [facility] Comment on above: Performed By: #### L [id number] #### [facility] (DEFAULT) [address] [place] [address] Platelets (Bld) [#/Vol] 370 10*3/uL Normal 150-393 [facility] Comment on above: Performed By: #### L AB980 #### [facility] (DEFAULT) [address] [place] [address] RBC (Bld) [#/Vol] 4.63 10*6/uL Normal 3.91-5.04 [facility] Comment on above: Performed By: #### L AB980 #### [facility] (DEFAULT) [address] [place] [address] RBC Distribution 14.0 % Normal 10.8-14.9 [facility] Comment on above: Performed By: #### L [id number] #### [facility] (DEFAULT) [address] [place] [address] Segs + Bands Auto 58.8 % Normal [facility] Comment on above: Performed By: #### L [id number] #### Micaela [facility] (DEFAULT) [address] [place] [address] Segs + Bands,Absolute Auto 3.81 K/uL Normal 1.64-7.28 [facility] Comment on above: Performed By: #### L AB980 #### [facility] (DEFAULT) [address] [place] [address] WBC (Bld) [#/Vol] 6.48 10*3/uL Normal 3.99-11.19 [facility] Comment on above: Performed By: #### L AB980 #### [facility] (DEFAULT) [address] [place] [address] FERRITINon 03-06-2024 Ferritin [Mass/Vol] 9.1 ng/mL Normal 7.3-270.7 [facility] Comment on above: Performed By: #### T SHQR, FERIB #### [facility] (DEFAULT) [address] [place] [address] HEPATIC FUNCTION PANELon Albumin [Mass/Vol] 4.3 g/dL Normal 3.5-5.0 [facility] Comment on above: Performed By: #### H PAULO, IRBC #### [facility] (DEFAULT) [address] [place] [address] ALP [Catalytic activity/Vol] 87 U/L Normal 32-126 [facility] Comment on above: Performed By: #### H PAULO, IRBC #### [facility] (DEFAULT) [address] [place] [address] ALT [Catalytic activity/Vol] 28 U/L Normal 9-48 [facility] Comment on above: Performed By: #### H PAULO, IRBC #### [facility] (DEFAULT) [address] [place] [address] AST [Catalytic activity/Vol] 27 U/L Normal 10-39 [facility] Comment on above: Performed By: #### H PAULO, IRBC #### [facility] (DEFAULT) [address] [place] [address] Bilirubin [Mass/Vol] 0.4 mg/dL Normal <1.5 [facility] Comment on above: Performed By: #### H PAULO, IRBC #### [facility] (DEFAULT) [address] [place] [address] Bilirubin.indirect [Mass/Vol] 0.1 mg/dL Normal <0.3 [facility] Comment on above: Performed By: #### H PAULO, IRBC #### [facility] (DEFAULT) [address] [place] [address] Protein [Mass/Vol] 6.9 g/dL Normal 6.4-8.3 [facility] Comment on above: Performed By: #### H PAULO, IRBC #### [facility] (DEFAULT) [address] [place] [address] IRON/IRON BINDING/TRANSFERRI Non 03-06-2024 Iron [Mass/Vol] 55 ug/dL Normal 40-174 [facility] Comment on above: Performed By: #### H PAULO, IRBC #### [facility] (DEFAULT) [address] [place] [address] Iron Saturation 13 % Low 20-55 [facility] Comment on above: Performed By: #### H PAULO, IRBC #### [facility] (DEFAULT) [address] [place] [address] Total Iron Binding Capacity 440 mcg/dL High 250-425 [facility] Comment on above: Performed By: #### H PAULO, IRBC #### [facility] (DEFAULT) [address] [place] [address] Transferrin [Mass/Vol] 352 mg/dL Normal 200-400 [facility] Comment on above: Performed By: #### H PAULO, IRBC #### [facility] (DEFAULT) [address] [place] [address] MOLECULAR STOOL PARASITE GUEVARA Cindy 03-06-2024 Cryptosporidium Parvum/Hominis By Pcr Negative Normal Negative [facility] Comment on above: Order Comment: Colle ct [...] Performed By: #### S CPBP #### [facility] (DEFAULT) [address] [address] Entamoeba Histolytica By Pcr Negative Normal Negative [facility] Comment on above: Order Comment: Colle ct [...] Performed By: #### S CPBP #### [facility] (DEFAULT) [address] [address] Giardia Lamblia By Pcr Negative Normal Negative [facility] Comment on above: Order Comment: Colle ct [...] Performed By: #### S CPBP #### [facility] (DEFAULT) [address] [address] TSH W/FT4 REFLEXon 4 TSH 1.986 uIU/mL Normal 0.550-4.780 [facility] Comment on above: Performed By: #### T SHQR, FERIB #### [facility] (DEFAULT) [address] [address] VITAMIN D (25-HYDROXY,TOTAL) on 03-06-2024 25-OH Vitamin D Total 22.2 ng/mL Low 30.0-100.0 [facility] Comment on above: Order Comment: Vitam in D values have been shown to be falsely decreased in lipemic samples and should be interpreted with caution. Result Comment: <10 Deficiency 10-29 Insufficiency 30-100 Optimal Level >100 Possible Toxicity Performed By: #### D 25OH #### [facility] (DEFAULT) [address] [place] [address] BACTERIAL VAGINOSIS NAATon 0 02-27-2024 Lactobacillus crispatus+gasseri+riri senii + Gardnerella vaginalis + Atopobium vaginae rRNA JOSÉ MIGUEL+probe Ql (Vag fld) Negative Normal Negative for bacterial vaginosis [facility] Comment on above: Order Comment: Speci men Type: SWABOrdering Facility: [facility] Address: [address] [place] [address] Performed By: #### B VAMP, CVTV ####[facility] LABCLIA [id number] [place] [address] [place] Lactobacillus crispatus+gasseri+riri senii + Gardnerella vaginalis + Atopobium vaginae rRNA JOSÉ MIGUEL+probe Ql (Vag fld) Negative Negative for bacterial vaginosis [facility] BETY/TRICHOMONAS NAATon 0 02-27-2024 C. glabrata RNA JOSÉ MIGUEL+probe Ql (Vag fld) Negative Normal Negative for Bety glabrata [facility] Comment on above: Order Comment: Speci men Type: SWABOrdering Facility: [facility] Address: [address] [place] [address] Performed By: #### B VAMP, CVTV ####[facility] LABCLIA [id number] [place] [address] [place] C. glabrata RNA JOSÉ MIGUEL+probe Ql (Vag fld) Negative Negative for Bety glabrata [facility] Bety sp DNA JOSÉ MIGUEL+probe Ql (Vag fld) Negative Normal Negative for Bety species [facility] Comment on above: Order Comment: Speci men Type: SWABOrdering Facility: [facility] Address: [address] [place] [address] Performed By: #### B VAMP, CVTV ####[facility] LABCLIA [id number] [address] [place] Bety sp DNA JOSÉ MIGUEL+probe Ql (Vag fld) Negative Negative for Bety species [facility] T. vaginalis DNA JOSÉ MIGUEL+probe Ql (Unsp spec) Negative Normal Negative for Trichomonas vaginalis by amplification [facility] Comment on above: Order Comment: Speci men Type: SWABOrdering Facility: [facility] Address: [address] [place] [address] Performed By: #### B VAMP, CVTV ####[facility] LABCLIA [id number] [address] [place] T. vaginalis DNA JOSÉ MIGUEL+probe Ql (Unsp spec) Negative Negative for Trichomonas vaginalis by amplification [facility] CNOVon 02-27-2024 CNOV Office Visit (SHERON ) MARY LEAL ([id number]) 1970 F Date Time Provider Department 02/27/24 10:00 AM FLOWER LOPEZ During your visit today, we recorded the following information about you: Pulse Blood pressure Weight Height 62/minute 146/93 69.9 kg 1.626 Flower Zhao APRN.HOUSE BUILDER 02/27/2024 10:40 AM Signed Female Pelvic Medicine [...] intermittently- somewhat improved. She has worked with [employer] rep re: interstim setting, now on program [...] you received about pain medications helpful? Yes [employer] Rout[employer] offered:Patient declines OBJECTIVE: BP 146/93 Pulse 62 [...] Clear 4 (more content not included)... Normal [facility] No Panel Informationon 02-26 Interpretation and review of laboratory results Normal [facility] UA DIP, URINE (POC)on 2023 BILIRUBIN UA (POCT) Negative Negative [facility] CLARITY UA (POCT) [facility] COLOR UA (POCT) Yellow [facility] GLUCOSE UA (POCT) Negative Negative mg/dL [facility] Hemoglobin Ql (U) Negative Negative [facility] KETONE UA (POCT) Negative Negative mg/dL [facility] LEUKOCYTES UA (POCT) Negative Negative [facility] NITRITE UA (POCT) Negative Negative [facility] PH UA (POCT) 5.5 4.5 - 8.0 [facility] Protein Ql (U) Negative Negative mg/dL [facility] SPECIFIC GRAVITY UA (POCT) >=1.030 1.005 - 1.030 [facility] UROBILINOGEN UA (POCT) 0.2 Normal E.U./dL [facility] Location:[facility], [address] [place] [address], [address] [place] [address] POINT OF CARE [facility] 29on 02-07-2024 29 Addended by: NATHANAEL MENDOZA on: 02/07/2024 12:01 PM Modules accepted: Orders [facility] Follow-Upon 02-07-2024 Follow-Up [id number] Darrian Leal 1970 F Date Provider Department Center 02/07/2024 PAULINE SANTACRUZ [facility] SLEEP [facility] No family history on file Level of Service:10838 [place] OFFICE/OUTPATIENT ESTABLISHED HIGH MDM 40 MIN Reason for Visit and Comments: Follow-up [311442] - Pt is here to activate her [employer] PAP. [facility] Hussain 01-27-2024 CNPN Telephone (GYNMN) MARY LEAL ([id number]) 1970 F Date Time Provider Department 01/27/24 RADHA DUNHAM GYNMN During your visit today, we recorded the following information about you: Radha Dunham MD 01/27/2024 10:54 AM Signed Industrial Hygenist Resident Telephone Encounter 01/27/2024 10:44 AM Call [...] Discussed with Dr. 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 Radha Dunham MD Obstetrics and Gynecology, PGY1 [...] PM Signed Received fax regarding letter from [employer] stating that on 01/29/24 the patient reported that they felt a zapping sensation in their rectal nerve . Asking that provider answer questions listed on document. Document scanned into [employer]. Thanks, Lili Montano RN 03/15/2024 11:27 AM Signed Called pt. Verified name/ Verified requested information and form faxed to [employer] @ [phone] Lili Matias RN March 15, 2024 11:27 [...] idiopathic cons (more content not included)... Normal [facility] ANES POSTPROC EVALon 024 ANES POSTPROC EVAL HNO ID: [id number] Author: BONI MURILLO MD Service: ? Author Type: Anesthesiologist Type: Anesthesia Postprocedure Evaluation Filed: 01/26/2024 09:51 Note Text: POST ANESTHESIA EVALUATION NOTE : 1970 Procedure Summary Date: 01/26/24 Room / Location: [address] [facility] Anesthesia Start: 727 Anesthesia Stop: 899 Procedures: [...] [N39.41]) Surgeons: Pam Wang MD Responsible Provider: O'Paula, Boni, MD Anesthesia Type: general ASA Status: 3 [...] January 26, 2024 TIME: 9:51 AM CSN: [id number] Normal [facility] ANES PRE-OPon 01-26-2024 ANES PRE-OP HNO ID: [id number] Author: BONI MURILLO MD Service: ? Author [...] THERAPUETIC SPINE/PARASPINOUS INJECTION PROCEDURES (Back) [facility] Surgeons: Pam Wang MD [...] January 26, 2024 TIME: 7:06 AM CSN: [id number] Normal [facility] BRIEF OP NOTon 01-26-2024 BRIEF OP NOT HNO ID: [id number] Author: SOFIYA MULLINS MD Service: Urogynecology Author Type: Fellow Type: Brief Op Note Filed: 01/26/2024 08:44 Note Text: BRIEF OPERATIVE / PROCEDURE NOTE LOG ID: [id number] Surgery/Procedure Date: 01/26/2024 Incision/Procedure Start Time: 7:54 AM Incision Close/Procedure End Time: 8:36 AM Surgeon(s)/Procedurali st(s) and Import/Export Specialist(s): Surgeon(s) and Role: * Pam Wang MD [...] Implant Name Type Inv. Item Serial No. Jukebox Routeman Lot No. LRB No. Used Action LEAD INTRSTIM MRI 28CM - [id number] Lead LEAD INTRSTIM MRI 28CM [employer] [id number] Left 1 Implanted INTERSTIM X RECHARGE FREE NEUROSTIMULATOR - [id number] Stimulator INTERSTIM X RECHARGE FREE NEUROSTIMULATOR [id number] [employer] Left 1 Implanted Pre-Op/Pre-Procedure Diagnosis: urinary retention, urgency, frequency and nocturia Post-Op/Post-Procedure Diagnosis: same SIGNATURE: Sofiya Mullins MD DATE: January 26, 2024 PATIENT NAME: Mary Leal TIME: 8:42 AM PAGER/CONTACT #: Pager [phone] Normal [facility] HISTORY PHYSICALon HISTORY PHYSICAL HNO ID: [id number] Author: SOFIYA MULLINS MD Service: Urogynecology Author [...] VTE Prophylaxis/An (more content not included)... Normal [facility] NURSING PROGon 01-26-2024 NURSING PROG HNO ID: [id number] Author: CATRACHO PIERRE RN Service: ? Author Type: Registered Nurse Type: Nursing Progress Note Filed: 01/26/2024 06:41 Note Text: Nursing Progress Note Topic of Note: Daily Note PATIENT NAME: Mary Leal Patient Location: Main - Periop OR/Main - Periop OR Room: Main - Periop OR ([id number]) PAGE SENT: Akiko Wang and Resident slag production worker-Pt in M23-37 Mary Leal will need informed consent and H AND P for surgery this morning. Thanks, Catracho [id number] This note was completed by: Catracho [facility] NURSING PROG HNO ID: [id number] Author: DAI CAMPUZANO RN Service: Nursing Author Type: Registered Nurse Type: Nursing Progress Note Filed: 01/26/2024 09:51 Note Text: 0923 Paged PACU Resident M22-30 Elvis- Could you please place an order for a one time dose of her homegoing oxycodone prescription? Dai GAMBINO [id number] Paged PACU Resident M22-30 Elvis- Could you please place an order for a one time dose of her homegoing oxycodone prescription? Dai GAMBINO [id number] [facility] OPERATIVE NOon 01-26-2024 OPERATIVE NO HNO ID: [id number] Author: PAM WANG MD Service: Urogynecology Author Type: Physician Type: Operative Report Filed: 01/29/2024 10:50 Note Text: OPERATIVE/PROCEDURE REPORT LOG ID: [id number] Surgery/Procedure Date: 01/26/2024 Incision/Procedure Start Time: 7:54 AM Incision Close/Procedure End Time: 8:36 AM Surgeon(s)/Procedurali st(s) and Import/Export Specialist(s): Surgeon(s) and Role: * Pam Wang MD [...] Implant Name Type Inv. Item Serial No. Jukebox Routeman Lot No. LRB No. Used Action LEAD INTRSTIM MRI 28CM - [id number] Lead LEAD INTRSTIM MRI 28CM [employer] [id number] Left 1 Implanted INTERSTIM X RECHARGE FREE NEUROSTIMULATOR - [id number] Stimulator INTERSTIM X RECHARGE FREE NEUROSTIMULATOR [id number] [employer] Left 1 Implanted Pre-Op/Pre-Procedure Diagnosis: [...] the S3 foramen until the marker was detention through the bone. The sacral lead was [...] and impedances (more content not included)... Normal [facility] HISTORY PHYSICALon 4 HISTORY PHYSICAL HNO ID: [id number] Author: MAX MARROQUIN PA-C Service: ? Author Type: Physician Import/Export Specialist Type: H&P Filed: 01/25/2024 09:25 Note Text: PREANESTHESIA CONSULT CLINIC TELEHEALTH VISIT SERVICE DATE: 01/25/2024 SERVICE TIME: 9:02 AM Patient has been identified by name and date of : Yes Reason for contact: PACC visit Accompanied by: Self This is a virtual visit using [employer] Video Visit. It required patient-provider interaction for the medical decision making as documented below. I have communicated my name and active licensure. The patient's identity and physical location were verified at the time of this visit. Either the patient or their legal shared services representative has been informed of the risks [...] using inspire to get activated 02/07/2024 ) [id number] Score: Age: <65 Sex: female CHF history: No Hypertension history: Yes Stroke/TIA/thromboembo lism history: No Vascular disease history: No Diabetes history: No [id number] Score: 2 ANESTHESIA FINDINGS: Intubation History: No [...] PAST SURGICAL HIST (more content not included)... [facility] (GYNMN) MARY LEAL ([id number]) 1970 F Date Time Provider Department 12/25/23 PAM WANG GYNSOFIE During your visit today, we recorded the following information about you: [facility] 12/25/2023 2:54 PM Signed Reason for call: [...] distance health visit in this department: 10/25/[address], Nurse Next visit in this department: 01/25/2024 [...] - Fully Assessed Reason for Visit: Question [6643] Prescriptions as of 12/25/2023 - ARIPiprazole monohydrate [...] Status:Closed by STACIE GONZALEZ on 12/25/23 Normal [facility] BASIC METABOLIC PANLon 12-20 Anion gap [Moles/Vol] 6 mmol/L Normal 5-15 [facility] Comment on above: Performed By: #### B MP #### [facility] ([id number]) [address] [place] [address] Calcium [Mass/Vol] 9.3 mg/dL Normal 8.5-10.5 [facility] Comment on above: Performed By: #### B MP #### [facility] ([id number]) [address] [place] [address] Chloride [Moles/Vol] 105 mmol/L Normal 98-109 [facility] Comment on above: Performed By: #### B MP #### [facility] ([id number]) [address] [place] [address] CO2 [Moles/Vol] 28 mmol/L Normal 22-32 [facility] Comment on above: Performed By: #### B MP #### [facility] ([id number]) [address] [place] [address] Creatinine [Mass/Vol] 0.60 mg/dL Normal 0.40-1.00 [facility] Comment on above: Result Comment: METH OD TRACEABLE TO IDMS STANDARD Performed By: #### B MP #### [facility] ([id number]) [address] [facility] [address] [place] [address] eGFR (CKD-EPI) NON-RACE DEPENDENT >90 Normal >59 [facility] Comment on above: Result Comment: Reported eGFR is based on the CKD-EPI 2020 equation that does not use a race coefficient. Performed By: #### B MP #### [facility] ([id number]) [address] [address] [place] [address] Glucose [Mass/Vol] 85 mg/dL Normal 65-99 [facility] Comment on above: Performed By: #### B MP #### [facility] ([id number]) [address] [address] [place] [address] Potassium [Moles/Vol] 4.2 mmol/L Normal 3.5-5.0 [facility] Comment on above: Performed By: #### B MP #### [facility] ([id number]) [address] [place] [address] Sodium [Moles/Vol] 139 mmol/L Normal 134-146 [facility] Comment on above: Performed By: #### B MP #### [facility] ([id number]) [address] [place] [address] Urea nitrogen [Mass/Vol] 14 mg/dL Normal 5-23 [facility] Comment on above: Performed By: #### B MP #### [facility] ([id number]) [address] [facility] [address] [place] [address] Basic Metabolic Panelon 12-07 Anion gap [Moles/Vol] 6 mmol/L 5 - 15 mmol/L [facility] Calcium [Mass/Vol] 9.3 mg/dL 8.5 - 10. 5 mg/dL [facility] Chloride [Moles/Vol] 105 mmol/L 98 - 10 9 mmol/L [facility] CO2 [Moles/Vol] 28 mmol/L 22 - 32 mmol/L [facility] Creatinine [Mass/Vol] 0.60 mg/dL 0.40 - 1.00 mg/dL [facility] Comment on above: METHOD TRACEABLE TO [facility] STANDARD eGFR (CKD-EPI)non-race dependent - PINF [facility] Comment on above: Reported eGFR is based on the CKD-EPI 2020 equation that does not use a race coefficient. Glucose [Mass/Vol] 85 mg/dL 65 - 99 mg/dL [facility] Potassium [Moles/Vol] 4.2 mmol/L 3.5 - 5.0 mmol/L [facility] Sodium [Moles/Vol] 139 mmol/L 134 - 146 mmol/L [facility] Urea nitrogen [Mass/Vol] 14 mg/dL 5 - 23 mg/dL [facility] 36on 12-05-2023 36 Scheduled Inspire activation appointment 02/06 at 9:15 am. [facility] CNPDianne 11-27-2023 CNPN Telephone (WCTRMN) MARY LEAL ([id number]) 1970 F Date Time Provider Department 11/27/23 [facility] During your visit today, we recorded the following information about you: Amber Trimble 11/27/2023 9:32 AM Signed Patient: Mary Leal : 1970 Provider: Pam Wang MD Caller Phone #: [phone] (home) [phone] (cell) Reason for call: boyfriend pulled out [...] PNE stimulator stopped connecting so Kim of [email or web address] said to remove it. She removed the [...] urge [N39.41] Order(s):SURGICAL REQUEST - ELECTIVE (06/2020) [[id number]] Order #: [id number]: 1 Prescriptions as of 11/27/2023 - ARIPiprazole [...] Encounter Status:Closed by PAM WANG on 11/27/23 [facility] Hussain 11-25-2023 CNPN Telephone (GYNMN) MARY LEAL ([id number]) 1970 F Date Time Provider Department 11/25/23 RADHA DUNHAM During your visit today, we recorded the following information about you: Radha Dunham MD 11/25/2023 2:43 PM Signed Industrial Hygenist Resident Telephone Encounter 11/25/2023 2:40 PM Call [...] adequately. Discussed with Dr. 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 Radha Dunham MD Obstetrics and Gynecology, PGY1 Allergies As of Date: 11/25/2023 Noted Allergy Reaction RISPERIDONE 07/27/2021 5 - Intolerance Comments: Breast discharge POISON BRENDA EXTRACT 04/06/2023 2 - Rash Date Reviewed: 10/10/2023 Reviewed by: José Luis Thorpe RN - Fully Assessed Reason for Visit: Patient Question [4546] Prescriptions as of 11/25/2023 - ARIPiprazole monohydrate [...] Status:Closed by RADHA DUNHAM on 11/25/23 Normal [facility] hepatobiliary w pharmon 0 11-23-2023 [place] hepatobiliary w pharm [facility] Main [place] [id number] Nuclear Medicine Report Signed Patient: Mary Leal MR#: [id number] : 1970 Acct:[id number] Age/Sex: 53 / F ADM Date: 11/23/23 Loc: [place] Room: Type: [facility] Attending Dr: Eagle Vazquez DO Copies to: Quinton Melendez Jr, DO Paul C Laffay, DO Ordering Provider: Eagle Vazquez DO Date of Service: 11/23/23 [place] hepatobiliary [place] pharm: RUQ pain, Nausea HIDA [...] is 68%. Normal is greater than 40%. [place] hepatobiliary [place] pharm IMPRESSION: Normal HIDA scan. Impression dictated by: Quinton Melendez Jr., D.OReno11/23/2023 11:56 AM Dictation Location: [place] [address] Transcribed By: [facility] 11/23/23 1156 Dictated By: Quinton Melendez Jr, DO 11/23/23 1155 Signed By: 11/23/23 1156 Normal [facility] CNOVon 11-21-2023 CNOV Office Visit (SHERON ) MARY LEAL ([id number]) 1970 F Date Time Provider Department 11/21/23 [...] Voiding dysfunction [N39.8] Order(s):UA DIP, URINE (POC) [[id number]] Order #: [id number]. #:[id number] [] ondansetron orally disintegrating 4 mg tab(s) [...] (GAS RE (more content not included)... Normal [facility] BI MAMMOGRAM SCREENING TOMOS YNTHESIS BILATERALon [...] IS VERY IMPORTANT TO YOUR HEALTH. THE [place] GUIDELINES RECOMMEND THAT WOMEN 40 [...] DO Normal Not Available Documentationon 10-12-2023 Documentation [id number] Darrian Leal 1970 F Date Provider Department Center 10/12/2023 [facility] Gerardo Heal No family history on file Normal [facility] CNOVon 10-10-2023 CNOV Office Visit (SHERON ) MARY LEAL ([id number]) 1970 F Date Time Provider Department 10/10/23 [...] PFSH obtained by others. Pam Wang MD [employer] offered: Patient declines. OBJECTIVE: BP 102/60 General: [...] would like to move forward with PNE. [place] [employer] packet given to patient today to review. [...] which included preparing to see the patient, [id number] patient care, completing clinical (more content not included)... Normal [facility] XR CHEST 2 VIEWSon 3 XR CHEST 2 VIEWS FINDINGS: Comparison, June 09, 2021. Intervertebral disc space device again identified lower cervical spine. Cardiopericardial silhouette normal. Pulmonary vasculature normal. Lungs clear. IMPRESSION: Impression: No acute cardiopulmonary disease. ELECTRONICALLY SIGNED BY: Angel Strauss MD Normal Not Available Orders Onlyon 09-19-2023 Orders Only [id number] Darrian Leal 1970 F Date Provider Department Center 09/19/2023 [facility] Gerardo Heal No family history on file Normal [facility] CNPDianne 09-12-2023 CNPN Telephone (WHQ) MARY LEAL ([id number]) 1970 F Date Time Provider Department 09/12/23 [...] elevated Pdet to void lower flow Jairon Lia MD Urodynamics Interpretation Uroflow: curve normal in [...] which included preparing to see the patient, [id number] patient care, completing clinical documentation, obtaining and/or [...] Office will call to schedule cystoscopy. Urogynecology [facility] Main provided: Pam Wang Staff Physician, [...] Diagnosis:History of suburethral sling procedure [Z98.890] Order(s):CYSTOSCOPY [facility] [[id number]] Order #: [id number] Prescriptions as of 09/12/2023 - atenolol (TENORMIN) [...] Take 1,000 (more content not included)... Normal [facility] CNOVon 09-11-2023 CNOV Office Visit (UROSMN ) MARY LEAL ([id number]) 1970 F Date Time Provider Department 09/11/23 11:00 AM JAIRON LAI URODARWIN During your visit today, we recorded the [...] Jenifer Barry RN 09/11/2023 11:37 AM Signed ON LICENSE OF [facility] [...] allergy: No Females- Is patient : No [employer] Routeman offered:Patient declines B/O UA: YES DIP: UROFLOWMETRY [...] Jairon Lai MD 09/11/2023 1:18 PM Signed ON LICENSE OF [facility] [...] Jairon Lai MD Referring Provider: PAM WANG [[id number]] Allergies As of Date: 09/11/2023 Noted Allergy [...] milliliters subcut (more content not included)... Normal [facility] Orders Onlyon 09-01-2023 Orders Only [id number] Darrian Leal 1970 Date Provider Department Center 09/01/2023 [facility] Gerardo Heal No family history on file Normal [facility] [place] 08-23-2023 [facility] Telemedicine [id number] Mary Leal 1970 Date Provider Department Center 08/23/2023 [facility] Gerardo Heal No family history on file Level of Service:96711 [place] OFFICE/OUTPATIENT ESTABLISHED MOD MDM 30-39 MIN Normal [facility] Orders Onlyon 08-21-2023 Orders Only [id number] Darrian Leal 1970 F Date Provider Department Center 08/21/2023 [facility] Gerardo Heal No family history on file Normal [facility] BASIC METABOLIC PANELon 100 Anion gap [Moles/Vol] 1 mmol/L Low 8-12 [facility] Comment on above: Performed By: #### 4 [id number], [id number], [id number], [id number] #### [address] [address] Calcium [Mass/Vol] 9.2 mg/dL Normal 8.4-10.4 [facility] Comment on above: Performed By: #### 4 [id number], [id number], [id number], [id number] #### [address] [address] [place] Chloride [Moles/Vol] 105 mmol/L Normal 96-109 [place] [facility] Comment on above: Performed By: #### 4 [id number], [id number], [id number], [id number] #### [address] [address] [place] CO2 [Moles/Vol] 32 mmol/L High 22-30 [facility] Comment on above: Performed By: #### 4 [id number], [id number], [id number], [id number] #### [address] [address] [place] Creatinine [Mass/Vol] 0.67 mg/dL Normal 0.52-1.04 [facility] [employer] [facility] Comment on above: Performed By: #### 4 [id number], [id number], [id number], [id number] #### [facility] [address] [place] [address] [place] GLOMERULAR FILTRATION RATE ML/MIN/1.73 SQ M.PREDICTED >90.0 Normal >=60.0 [place] Comment on above: Result Comment: eGFR calculation [...] Kidney Int Suppl.2013;3:1-150 Performed By: #### 4 [id number], [id number], [id number], [id number] #### [facility] [address] [place], [place] [address] Glucose [Mass/Vol] 104 mg/dL High 65-100 [facility] Comment on above: Performed By: #### 4 [id number], [id number], [id number], [id number] #### [address] [place] [address] [facility] Potassium [Moles/Vol] 4.6 mmol/L Normal 3.6-5.1 [facility] Comment on above: Performed By: #### 4 [id number], [id number], [id number], [id number] #### [address] [place] [address] [facility] Sodium [Moles/Vol] 138 mmol/L Normal 135-147 [facility] Comment on above: Performed By: #### 4 [id number], [id number], [id number], [id number] #### [address] [place] [address] [place] Urea nitrogen [Mass/Vol] 16 mg/dL Normal 8-26 [facility] Comment on above: Performed By: #### 4 0779250, [id number], [id number], [id number] #### [address] [place] [address] [facility] Basic metabolic panel aka Ch em 808-12-2023 Anion gap [Moles/Vol] 1 mmol/L Low 8 - 12 mmol/L [facility] Calcium [Mass/Vol] 9.2 mg/dL 8.4 - 10. 4 mg/dL [facility] Calcium hydrogen phosphate dihydrate crystals LM Ql (Urine sed) 16 mg/dL 8 - 26 mg/dL [facility] Chloride [Moles/Vol] 105 mmol/L 96 - 10 9 mmol/L [facility] CO2 (BldMV) [Moles/Vol] 32 mmol/L High 22 - 30 mmol/L [facility] Creatinine [Mass/Vol] 0.67 mg/dL 0.52 - 1.04 mg/dL [facility] GFR/1.73 sq M.predicted MDRD (S/P/Bld) [Vol rate/Area] - PINF [facility] Comment on above: eGFR calculation bas ed [...] mg/dL High 65 - 100 mg/dL [facility] Potassium [Moles/Vol] 4.6 mmol/L 3.6 - 5.1 mmol/L [facility] Sodium [Moles/Vol] 138 mmol/L 135 - 147 mmol/L [facility] CBC AND DIFFERENTIALon 08-12 ABSOLUTE BASOPHIL 0.0 x10*3/uL Normal 0.0-0.1 [facility] Comment on above: Performed By: #### 4 [id number] #### [place] [address] [address] ABSOLUTE EOSINOPHIL 0.1 x10*3/uL Normal 0.1-0.3 [facility] Comment on above: Performed By: #### 4 [id number] #### [place] [address] [address] ABSOLUTE IMMATURE GRANULOCYTES 0.0 x10*3/uL Normal 0.0-0.1 [facility] Comment on above: Performed By: #### 4 [id number] #### [address] ABSOLUTE LYMPH 1.6 x10*3/uL Normal 1.2-3.3 [facility] Comment on above: Performed By: #### 4 [id number] #### [address] ABSOLUTE MONO 0.3 x10*3/uL Normal 0.2-0.6 [facility] Comment on above: Performed By: #### 4 [id number] #### [address] ABSOLUTE NEUTROPHIL 3.1 x10*3/uL Normal 2.4-6.6 [facility] Comment on above: Performed By: #### 4 [id number] #### [address] Basophils/100 WBC (Bld) 0.8 % Normal [facility] Comment on above: Performed By: #### 4 [id number] #### [address] Eosinophils/100 WBC (Bld) 2.7 % Normal [facility] Comment on above: Performed By: #### 4 [id number] #### [address] Erythrocyte distribution width (RBC) [Ratio] 13.0 % Normal 11.5-14.5 [facility] Comment on above: Performed By: #### 4 [id number] #### [address] Hematocrit (Bld) [Volume fraction] 37.5 % Normal 33.6-46.8 [facility] Comment on above: Performed By: #### 4 [id number] #### [address] Hemoglobin (Bld) [Mass/Vol] 11.8 g/dL Normal 11.7-15.8 [facility] Comment on above: Performed By: #### 4 [id number] #### [address] Immature granulocytes/100 WBC (Bld) 0.4 % Normal [facility] Comment on above: Performed By: #### 4 [id number] #### [address] Lymphocytes/100 WBC (Bld) 31.5 % Normal [facility] Comment on above: Performed By: #### 4 [id number] #### [address] MCH (RBC) [Entitic mass] 26.5 pg Low 27.5-32.3 [facility] Comment on above: Performed By: #### 4 [id number] #### [address] MCHC (RBC) [Mass/Vol] 31.5 g/dL Normal 30.7-35.5 Gen [facility] Comment on above: Performed By: #### 4 [id number] #### [address] MCV (RBC) [Entitic vol] 84.3 fL Normal 80.2-99 [facility] Comment on above: Performed By: #### 4 [id number] #### [address] Monocytes/100 WBC (Bld) 5.4 % Normal [facility] Comment on above: Performed By: #### 4 [id number] #### [address] Neutrophils/100 WBC (Bld) 59.2 % Normal [facility] Comment on above: Performed By: #### 4 [id number] #### [address] NUCLEATED RED BLOOD CELLS AUTO 0.0 % Normal 0.0-1.0 [facility] Comment on above: Performed By: #### 4 [id number] #### [address] PLATELET COUNT 299 x10*3/uL Normal 150-400 [facility] Comment on above: Performed By: #### 4 [id number] #### [address] RED BLOOD CELL COUNT 4.45 x10*6/uL Normal 3.60-5.20 G [facility] Comment on above: Performed By: #### 4 [id number] #### [address] WHITE BLOOD CELLS 5.2 x10*3/uL Normal 4.3-10.3 [facility] Comment on above: Performed By: #### 4 [id number] #### [address] CBC with differentialOrdered By: Background Lab on 08-12-2023 Absolute Immature Granulocytes 0.0 [facility] Age [Time] 84.3 fL 80.2 - 99 fL [facility] Age [Time] 26.5 pg Low 27.5 - 32.3 pg [facility] Age [Time] 31.5 g/dL 30.7 - 35.5 g/dL [facility] B. burgdorferi IgM IB Ql (CSF) 31.5 % [facility] Basophils (Bld) [#/Vol] 0.0 10*3/uL [facility] Basophils/100 WBC (Body fld) 0.8 % [facility] Eosinophils (Bld) [#/Vol] 1.6 10*3/uL [facility] Eosinophils (Bld) [#/Vol] 0.3 10*3/uL [facility] Eosinophils (Bld) [#/Vol] 0.1 10*3/uL [facility] Eosinophils/100 WBC (Bld) 2.7 % [facility] Erythrocyte distribution width (RBC) [Ratio] 13.0 % 11.5 - 14.5 % [facility] Hematocrit (Bld) [Volume fraction] 37.5 % 33.6 - 46.8 % [facility] Hexanoylglycine (U) [Moles/Vol] 11.8 g/dL 11.7 - 15.8 g/dL [facility] Immature granulocytes/100 WBC (Bld) 0.4 % [facility] Monocytes/100 WBC (Bld) 5.4 % [facility] Neurotensin (P) [Mass/Vol] 59.2 % [facility] Neutrophils (Bld) [#/Vol] 3.1 10*3/uL [facility] Nucleated RBC/100 WBC (Bld) [Ratio] 0.0 % 0.0 - 1.0 % [facility] Platelets (Bld) [#/Vol] 299 10*3/uL [facility] RBC (Bld) [#/Vol] 4.45 10*6/uL [facility] WBC (Bld) [#/Vol] 5.2 10*3/uL [facility] CT ABDOMEN PELVIS WITH IV CO [...] 20 RAC Omni 300 100 ml Normal [facility] HEPATIC FUNCTION PANELon Albumin [Mass/Vol] 4.0 g/dL Normal 3.5-5.0 [facility] Comment on above: Performed By: #### 4 [id number], [id number], [id number], [id number] #### [address] [place] [address] [place] ALK PHOS 104 U/L Normal 24-126 [facility] Comment on above: Performed By: #### 4 [id number], [id number], [id number], [id number] #### [address] [place] [address] [place] ALT [Catalytic activity/Vol] 50 U/L High 4-35 [facility] Comment on above: Performed By: #### 4 [id number], [id number], [id number], [id number] #### [address] [place] [address] [place] AST [Catalytic activity/Vol] 59 U/L High 3-47 [facility] Comment on above: Performed By: #### 4 [id number], [id number], [id number], [id number] #### [address] Bilirubin [Mass/Vol] 0.1 mg/dL Low 0.2-1.6 [facility] Comment on above: Performed By: #### 4 [id number], [id number], [id number], [id number] #### [address] Bilirubin.indirect [Mass/Vol] 0.1 mg/dL Normal <=0.5 [facility] Comment on above: Performed By: #### 4 [id number], [id number], [id number], [id number] #### [address] Protein [Mass/Vol] 6.6 g/dL Normal 6.3-8.2 [facility] Comment on above: Performed By: #### 4 [id number], [id number], [id number], [id number] #### [address] Hepatic Function Panelon Albumin (Syn fld) [Mass/Vol] 4.0 g/dL 3.5 - 5.0 g/dL [facility] Aldosterone (U) [Mass/Vol] 104 U/L 24 - 126 U/L [facility] Bilirubin.conjugated [Mass/Vol] 0.1 mg/dL NINF - 0.5 mg/dL [facility] LIPASEon 08-12-2023 Lipase [Catalytic activity/Vol] 11 U/L Low 23-300 [facility] Comment on above: Performed By: #### 4 [id number], [id number], [id number], [id number] #### [address] No Panel Informationon 08-12 Extra Tube Hold for add-ons. [facility] Interpretation and review of laboratory results Abnormal [facility] Interpretation and review of laboratory results Abnormal [facility] POCT ED/FC/GSC Urine PregOrd ered By: Della Hays on 08-12-2023 Beta HCG ( test) Ql (U) Negative [facility] Interpretation and review of laboratory results Normal [facility] Bingo Clerk Acceptable yes [facility] TROPONIN Ion 08-12-2023 Troponin I.cardiac [Mass/Vol] ng/mL Normal <=0.033 [facility] Comment on above: Result Comment: Nega tive: No detectable troponin-I. Performed By: #### 4 [id number] #### [address] [address] TROPONIN I SERIESon 08-12-20 Troponin I.cardiac [Mass/Vol] ng/mL Normal <=0.033 [facility] Comment on above: Negative: No detectable troponin-I. Result Comment: Nega tive: No detectable troponin-I. Performed By: #### 4 [id number], [id number], [id number], [id number] #### [address] Troponin I (One time)on Interpretation and review of laboratory results Normal [facility] Troponin I.cardiac [Mass/Vol] ng/mL NINF - 0.033 ng/mL [facility] Comment on above: Negative: No detectable troponin-I. [facility] Troponin I - Series (X 3)on 08-12-2023 Interpretation and review of laboratory results Normal [facility] URINALYSIS WITH REFLEX CULTU REon 08-12-2023 Appearance (U) Clear Normal [facility] Comment on above: Performed By: #### 4 [id number] #### [address] BILIRUBIN UA Negative Normal Negative [facility] Comment on above: Performed By: #### 4 [id number] #### [address] [address] [place] Color (U) Yellow Normal [facility] Comment on above: Performed By: #### 4 [id number] #### [address] [place] [address] [place] Glucose Ql (U) Negative Normal Negative [facility] Comment on above: Performed By: #### 4 [id number] #### [address] [id number] Ketones Ql (U) Negative Normal Negative [facility] Comment on above: Performed By: #### 4 [id number] #### [place] [address] [place] LEUKOESTERASE Negative Normal Negative [facility] Comment on above: Performed By: #### 4 [id number] #### [address] MUCOUS-URINE Occasional Normal [facility] Comment on above: Performed By: #### 4 [id number] #### [address] Nitrite Ql (U) Negative Normal Negative [facility] Comment on above: Performed By: #### 4 [id number] #### [address] OCCULT BLD Negative Normal Negative [facility] Comment on above: Performed By: #### 4 [id number] #### [address] PH, URINE 5.0 Normal [facility] Comment on above: Performed By: #### 4 [id number] #### [address] Protein Ql (U) Negative Normal Negative [facility] Comment on above: Performed By: #### 4 [id number] #### [address] RBC LM.HPF (Urine sed) [#/Area] /[HPF] Normal <=5 [facility] Comment on above: Performed By: #### 4 [id number] #### [address] SPECIFIC GRAVITY, URINE 1.025 Normal [facility] Comment on above: Performed By: #### 4 [id number] #### [address] SQUAMOUS EPI CELLS 51 /LPF [facility] Comment on above: Performed By: #### 4 [id number] #### [address] UROBILINOGEN UA Negative Normal <2.0 [facility] Comment on above: Performed By: #### 4 [id number] #### [address] WBC LM.HPF (Urine sed) [#/Area] 2 /[HPF] Normal <=5 [facility] Comment on above: Performed By: #### 4 [id number] #### [address] Urinalysis complete W Reflex Culture panel (U)on 08-12-2023 Acetone [Mass/Vol] Negative Negative [facility] Appearance (Body fld) Clear Gen [facility] Bilirubin Ql (U) Negative Negative [facility] Color (Stone) Yellow [facility] G6PD (RBC) [Catalytic activity/Vol] Negative Negative [facility] Hemoglobin Ql (U) NINF [facility] Leukocyte esterase Test strip Ql (U) Negative Negative [facility] Mucor racemosus IgE Qn (S) Occasional /LPF [facility] Nitrite Test strip (U) [Mass/Vol] Negative Negative [facility] pH (Migue fld) 5.0 [facility] Protein (U) [Mass/Vol] Negative Negative [facility] [employer] IgE Qn (S) Negative Negative [facility] Specific gravity (U) [Rel density] 1.025 [facility] Spherocytes LM Ql (Bld) 51 /LPF [facility] Urobilinogen Qn (U) Negative [facility] - 2.0 [facility] WBC (U) [#/Vol] 2 /[facility]L [facility] 36on 08-02-2023 36 Call placed to alex nt to discuss how often she is taking Miralax. Patient is taking Miralax once daily as instructed. Per Alba Montague she was instructed that she can take it twice a day. Also advised patient that Alba Montague will be consulting with the physician who performed her procedure. Normal [facility] Orders Onlyon 08-02-2023 Orders Only [id number] Darrian Leal 1970 F Date Provider Department Center 08/02/2023 [facility] Gerardo Heal No family history on file [facility] CNOVon 07-31-2023 CNOV Office Visit (SHERON ) MARY LEAL ([id number]) 1970 F Date Time Provider Department 07/31/23 2:30 PM NELSY CHÁVEZ During your visit today, we recorded the following information about you: Pulse Blood pressure Weight Height 76/minute 136/96 69.9 kg 1.626 m Nelsy Chávez APRN.HOUSE BUILDER 07/31/2023 5:35 PM Signed Female Pelvic Medicine [...] new Pain: no Abnormal Vaginal Discharge: no DIRECT SALES REPRESENTATIVE 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 She has no history of an abnormal mammogram with cysts on US LMP: No LMP recorded. Patient has had a hysterectomy.; Menopause 3 years ago; hysterectomy in 2014: Menstrual history: NA; Deliveries: I have confirmed and edited as necessary, the PFSH obtained by others. Nelsy Chávez APRN.HOUSE BUILDER [employer] offered: Patient declines. OBJECTIVE: There were no [...] for now d/t side effects Nelsy Chávez APRN.HOUSE BUILDER I spent a total of 45 minutes on the date of the service which included preparing to see the patient, [id number] patient care, completing clinical documentation, performing a [...] [R35.0] Nocturia [R35.1] Order(s):UA DIP, URINE (POC) [[id number]] Order #: [id number]. #:[id number] URODYNAMICS WHI [[id number]] Order #: [id number] Prescriptions as of 07/31/2023 - atenolol (TENORMIN) [...] 10 m (more content not included)... Normal [facility] UA DIP, URINE (POC)on 2022 BILIRUBIN UA (POCT) Negative Negative [facility] CLARITY UA (POCT) Clear [facility] COLOR UA (POCT) Yellow [facility] GLUCOSE UA (POCT) Negative Negative mg/dL [facility] Hemoglobin Ql (U) Negative Negative [facility] KETONE UA (POCT) Negative Negative mg/dL [facility] LEUKOCYTES UA (POCT) Negative Negative [facility] NITRITE UA (POCT) Negative Negative [facility] PH UA (POCT) 5.0 4.5 - 8.0 [facility] Protein Ql (U) Negative Negative mg/dL [facility] SPECIFIC GRAVITY UA (POCT) 1.010 1.005 - 1.030 [facility] UROBILINOGEN UA (POCT) 0.2 E.U./dL Normal E.U./dL [facility] HISTOLOGY - TISSUE EXAMon LAB AP [...] Clinical Laboratory Improvement Amendments of 1998. Normal [facility] Comment on above: Performed By: #### L [id number] ####[facility] [place] [address] LAB AP CASE REPORT Normal [facility] Comment on above: Result Comment: Surg ical Pathology Case: [id number] Authorizing Provider: Matteo Quinones MD Collected: 07/25/2023 1126 Ordering Location: Eliceo Nicholas Received: 07/25/2023 12[facility] [place] Pathologist: Boni Benito MD Specimens: A) - Small Intestine, Duodenum, R/O CELIAC B) - Gastric, R/O H PYLORI C) - Distal Esophagus, R/O EOE D) - Proximal Esophagus, R/O EOE E) - Small Intestine, Terminal Ileum, R/O COLITIS Performed By: #### L [id number] ####[facility] (BEAKER)[address] [place] [address] LAB AP CLINICAL INFORMATION Order Diagnoses [facility] Comment on above: Result Comment: K21. 9 - Gastroesophageal reflux disease without esophagitis [ICD-10-CM] R11.0 - Nausea [ICD-10-CM] R19.7 - Diarrhea, unspecified type [ICD-10-CM] Performed By: #### L [id number] ####[facility] (BEAKER)[address] [place] [address] LAB AP GROSS DESCRIPTION [facility] Comment on above: Result Comment: [...] Goetz, PGY 1 Performed By: #### L [id number] ####[facility] (BEAKER)[address] [place] [address] LAB AP MICROSCOPIC DESCRIPTION Microscopic examination performed. [facility] Comment on above: Performed By: #### L [id number] ####[facility] (BEAKER)[address] [place] [address] LAB AP REPORT FINAL DIAGNOSIS NARRATIVE [facility] Comment on above: Result Comment: A. [...] or malignancy identified. Performed By: #### L [id number] ####[facility] ([place] [address] on 07-25-2023 H&P reviewed. The patient was examined and there are no changes to the H&P. Normal [facility] HP -- Attestation signed by Matteo Quinones MD [...] bowel movements. Plan EGD and colonoscopy Normal [facility] NURSNOTEon 07-25-2023 NURSNOTE ANASTOMOSIS SITE REACHED Normal [facility] Orders Onlyon 07-25-2023 Orders Only [id number] Darrian Leal 1970 F Date Provider Department Center 07/25/202395140-NVCOYFILIPE PAZ MP GI Medical Pavi No family history on file Normal [facility] POCT GLUCOSE METER UNSOLICIT ED RESULTSon 07-25-2023 Glucose [Mass/Vol] 87 mg/dL Normal 70-[address] [facility] Comment on above: Order Comment: Waive d Testing in the ED is performed under the ED CLIA certificate #[id number]. Result Comment: dhol as Performed By: #### L [id number] #### [facility] (BE[facility]ER) [address] [place] [address] Orders Onlyon 07-21-2023 Orders Only [id number] Denver Lealist en 1970 F Date Provider Department Center 07/21/2023 ARELI PEREA [facility] No family history on file Normal [facility] Orders Onlyon 07-19-2023 Orders Only [id number] ElvisKrist en 1970 F Date Provider Department Center 07/19/2023 [facility] Gerardo Heal No family history on file Normal [facility] Prep for Procedureon 023 Prep for Procedure [id number] Denver Lealist en 1970 F Date Provider Department Center 07/17/2023 MATTEO HADLEY [facility] No family history on file Normal [facility] HPon 07-11-2023 HP Images from the original note were not included. [facility] [address] [place] [address] [address] [place] [id number] SUBJECTIVE: Patient ID: Mary Leal is a [...] always hoarse and she hacks up phlegm /, thick and foamy. Has bad GERD, Takes Dexilant daily, sees Dr. Montague at [facility]. HISTORY: Past Medical History: Diagnosis Date ADD (attention deficit disorder) Anxiety Asthma Bipolar disorder ([facility]) Depression Dysphagia Gastric paresis GERD (gastroesophageal reflux disease) Headache migraines History of pleurisy STATES 2 WEEKS AGO Hypertension Obesity Primary insomnia 07/07/2020 Rectal bleeding Restless leg syndrome Visual impairment one contact left, glasses Past Surgical History: Procedure Laterality Date APPENDECTOMY ARTHROSCOPIC REPAIR ACL Left COLONOSCOPY COLONOSCOPY with bx's N/A 03/20/2020 Performed by Noman Mayo MD at [facility] ENDOSCOPY EGD, DILATATION N/A 09/25/2020 Performed by Noman Mayo MD at [facility] ENDOSCOPY FOOT SURGERY 06/25/2020 left foot surgery HYSTERECTOMY LASER LINGUAL TONISILLECTOMY Circumferential 07/08/2021 Performed by Areli Avila MD PhD at [facility] MRI FOOT LEFT NECK SURGERY PLANTAR FASCIECTOMY RELEASE PHARYNGEAL SCAR CPT 35550 Circumferential 07/08/2021 Performed by Areli Avila MD PhD at [facility] RESECTION SUBMUCOSAL NASAL Bilateral 02/11/2021 Performed by Areli Avila MD PhD at [facility] SEPTOPLASTY Circumferential 02/11/2021 Performed by Areli Avila MD PhD at [facility] TONSILLECTOMY Bilateral 02/11/2021 Performed by Areli Avila MD PhD at [facility] uvuloplasty N/A 02/11/2021 Performed by Areli Avila MD PhD at [facility] Family History Problem Relation Age of Onset [...] no mor (more content not included)... Normal [facility] Orders Onlyon 06-26-2023 Orders Only [id number] ElvisDarrian arriaza jonathan 1970 F Date Provider Department Center 06/26/2023 [facility] Gerardo Heal No family history on file Normal [facility] Office Visit (Cardiology)on 06-13-2023 Follow-up visit Diagnoses/Problems Assessed Chest pain (786.50) (R07.9) Elevated troponin (790.6) (R77.8) Fatigue (780.79) (R53.83) Never a smoker Overweight with body mass index (BMI) of 27 to 27.9 in adult (278.02,V85.23) (E66.3,Z68.27) Orders Elevated troponin IO EKG Electrocardiogram- 12 Lead; Status:Active - Perform Order,Retrospective Authorization; Requested for:[id number]; Overweight with body mass index (BMI) of 27 to 27.9 in adult Healthy Weight Tips; Status:Complete - Retrospective Authorization; Done: [id number] Some eating tips that can help you lose weight.; Status:Complete - Retrospective Authorization; Done: [id number] SocHx: Never a smoker Tobacco Use Screening; Status:Complete; Done: [id number] Patient Instructions Please bring all medicines, vitamins, [...] weakness, dizziness, diaphoresis with recent work-up that [facility] emergency room. Reportedly her troponins are [...] of which are currently being investigated at [facility] (now her fourth GI specialist). Last year while in [place] she had similar issues with elevated troponins in the ED and underwent heart catheterization that did not reveal any specific significant disease, details of the discharge summary are reviewed She underwent recent stress perfusion imaging at [facility], the report is reviewed, she has [...] disease, will investigate the troponin rise at [facility] however I believe this is likely a non-[place] troponin elevation, likely associated with underlying inflammatory [...] negative for complaint. Vitals Vital Signs Recorded: [id number] 10:37AM Heart Rate70, Apical Tvaqzypa122, RUE, Sitting Wkpgbqjpn15, RUE, Sitting Height5 ft 4 in Krqtnh270 lb BMI Icfhoydavj91.46 kg/m2 BSA Calculated1.78 Tobacco Useb) No PHQ-2 [...] Screening.on 023 Adult depression screening assessment No [facility] [address] DO Work Phone: Adult depression screening assessment Yes [facility] [address] DO Work Phone: Adult depression screening assessment Moderate (10-14) [facility] [address] DO Work Phone: Fall risk assessment a) No falls within the last year [facility] [address] DO Work Phone: Tobacco use status CP b) No [facility] [address] DO Work Phone: [phone] Tobacco Screening. 1-Several days [facility] [address] DO Work Phone: [phone] Tobacco Screening. 3-Nearly every day [facility] [address] DO Work Phone: [phone] Tobacco Screening. 0-Not at all [facility] [address] DO Work Phone: [phone] Tobacco Screening. Somewhat Difficult [facility] [address] DO Work Phone: [phone] STR cardiac stress/lexiscano n 06-09-2023 STR cardiac stress/lexiscan [facility] Main [place] [address] [place] [address] Cardiac Stress Test Signed Patient: Mary Leal MR#: [id number] : 1970 Acct:[id number] Age/Sex: 53 / F ADM Date: 06/05/23 Loc: ER Room: Type: DEP ER Attending Dr: Copies to: DO Marielle [...] reported separately by nuclear cardiology. Transcribed By: KINSEY 06/09/23 1614 Dictated By: Marielle Scruggs MD, FAC 06/09/23 1550 Signed By: 06/10/23 0903 Normal [facility] [place] 06-08-2023 [facility] [id number] Mary Leal 1970 F Date Provider Department Center 06/08/2023 TamiANDREW [facility] Gerardo Heal No family history on file Level of Service:87113 [place] OFFICE/OUTPATIENT ESTABLISHED MOD MDM 30-39 MIN Reason for Visit and Comments: Telehealth Audio/video Visit [871] Normal [facility] NM mirtha perf SPECT rest stron 06-08-2023 NM mirtha perf SPECT rest str [facility] [place] [address] Nuclear Medicine Report Signed Patient: Mary Leal MR#: [id number] 863 : 1970 Acct:[id number] Age/Sex: 53 / F ADM Date: 06/05/23 Loc: ER Room: Type: DEP ER Attending Dr: Copies to: DO Marielle [...] 06/08/23 1659 Dictated By: Marielle Scruggs MD, [facility] 06/08/23 1540 Signed By: 06/09/23 1532 Normal [facility] 36on 06-05-2023 36 Patient calls wondering about her calprotectin being high. Please advise Normal [facility] Activated partial thrombopla stin time (aPTT) in platelet poor plasma by coagulation aOrdered By: Anibal Valle on 06-05-2023 aPTT Coag (PPP) [Time] 28.0 s 25.1-36.5 [facility] Automated basophil %Ordered By: Anibal Valle on 06-05-2023 Basophils/100 WBC (Bld) 0.4 % Normal . [facility] Comment on above: Performed By: #### H S TROP, BNP, BMP, CBC, PTT, PT #### [address] Automated basophil countOrde red By: Anibal Valle on 06-05-2023 Basophils (Bld) [#/Vol] 0.0 10*3/uL Normal 0.0-0.2 [facility] Comment on above: Result Comment: PERF ORMED BY: [place] [address] PATHOLOGIST HOOKER INSPECTOR LEVAR CASE M.D. Performed By: #### H S TROP, BNP, BMP, CBC, PTT, PT #### [address] Automated blood monocyte cou ntOrdered By: Anibal Valle on 06-05-2023 Monocytes (Bld) [#/Vol] 0.3 10*3/uL Normal 0.0-0.8 [facility] Comment on above: Performed By: #### H S TROP, BNP, BMP, CBC, PTT, PT #### [address] Automated eosinophil %Ordere d By: Anibal Valle on 06-05-2023 Eosinophils/100 WBC (Bld) 1.9 % Normal . [facility] Comment on above: Performed By: #### H S TROP, BNP, BMP, CBC, PTT, PT #### [address] Automated eosinophil countOr dered By: Anibal Valle on 06-05-2023 Eosinophils (Bld) [#/Vol] 0.1 10*3/uL Normal 0.0-0.45 [facility] Comment on above: Performed By: #### H S TROP, BNP, BMP, CBC, PTT, PT #### [address] Automated monocyte %Ordered By: Anibal Valle on 06-05-2023 Monocytes/100 WBC (Bld) 7.5 % Normal . [facility] Comment on above: Performed By: #### H S TROP, BNP, BMP, CBC, PTT, PT #### [address] Automated neutrophil %Ordere d By: Anibal Valle on 06-05-2023 Neutrophils/100 WBC (Bld) 49.2 % Normal . [facility] Comment on above: Performed By: #### H S TROP, BNP, BMP, CBC, PTT, PT #### [facility] [address] BNP ser/plasOrdered By: Anibal Valle on 06-05-2023 Natriuretic peptide B (Bld) [Mass/Vol] 39.0 pg/mL Normal 5-100 [facility] Comment on above: Result Comment: PERF ORMED BY: [place] [address] PATHOLOGIST HOOKER INSPECTOR LEVAR CASE M.D. Performed By: #### H S TROP, BNP, BMP, CBC, PTT, PT ####[place] [id number] [facility] Basic Metabolic Panelon 05-08 Creatinine Clr Calc Pharmacy 97.82 Normal [facility] Comment on above: Result Comment: PERF ORMED BY: [place] [address] PATHOLOGIST HOOKER INSPECTOR LEVAR CASE M.D. Performed By: #### H S TROP, BNP, BMP, CBC, PTT, PT #### [address] GFR/1.73 sq M.predicted MDRD (S/P/Bld) [Vol rate/Area] mL/min/{1.73_m2} Normal [facility] Comment on above: Performed By: #### H S TROP, BNP, BMP, CBC, PTT, PT #### [facility] [address] [place] [address] Calcium [Mass/volume] in Ser um or PlasmaOrdered By: Anibal Valle on 06-05-2023 Calcium [Mass/Vol] 9.0 mg/dL Normal 8.6-10.3 [facility] Comment on above: Performed By: #### H S TROP, BNP, BMP, CBC, PTT, PT #### [address] Carbon dioxide, total [Moles /volume] in Serum or PlasmaOrdered By: Anibal Valle on 06-05-2023 CO2 [Moles/Vol] 23.2 mmol/L Normal 21.0-31.0 [facility] Comment on above: Performed By: #### H S TROP, BNP, BMP, CBC, PTT, PT #### [facility] [address] Chloride [Moles/volume] in S jay or PlasmaOrdered By: Anibal Valle on 06-05-2023 Chloride [Moles/Vol] 108 mmol/L High 98-107 [facility] Comment on above: Performed By: #### H S TROP, BNP, BMP, CBC, PTT, PT #### [facility] [address] Complete Blood Count Auto Di ffon 06-05-2023 Mean Corpuscular HGB Conc 34.5 g/dL Normal 32.0-35.0 [facility] Comment on above: Performed By: #### H S TROP, BNP, BMP, CBC, PTT, PT #### [address] Monocytes/100 WBC (Bld) 24.18 % High 0.00-20.00 [facility] Comment on above: Result Comment: For adults in ED, MDW > 20.0 may be associated with a higher risk of sepsis during the first 12 hrs of hospital admission Performed By: #### H S TROP, BNP, BMP, CBC, PTT, PT #### [address] NRBC% 0.1 /100{WBC} Normal 0-0.5 [facility] Comment on above: Performed By: #### H S TROP, BNP, BMP, CBC, PTT, PT #### [facility] [address] Creatinine [Mass/volume] in Serum or PlasmaOrdered By: Anibal Valle on 06-05-2023 Creatinine [Mass/Vol] 0.67 mg/dL Normal 0.60-1.[address] [facility] Comment on above: Performed By: #### H S TROP, BNP, BMP, CBC, PTT, PT #### [address] ECG 12 lead ECGon 06-05-2023 ECG [address] [facility] Main [address] [address] Electrocardiograph Report Signed Patient: Mary Leal MR#: [id number] 863 : 1970 Acct:[id number] Age/Sex: 53 / F ADM Date: 06/05/23 Loc: ER Room: Type: [facility] ER Attending Dr: Ordering Provider: Anibal [...] was found Confirmed by ANIBAL VALLE DO ([id number]) on 06/05/2023 4:21:06 PM Referred By: Electronically Signed By:ANIBAL VALLE DO Transcribed By: MUS Signed By Anibal Valle DO 06/05 1621 Normal [facility] ECG 12 lead ECG [place] [id number] Electrocardiograph Report Signed Patient: Mary Leal MR#: [id number] 863 : 1970 Acct:[id number] Age/Sex: 53 / F ADM Date: 06/05/23 Loc: ER Room: Type: [facility] ER Attending Dr: Ordering Provider: Olayinka [...] was found Confirmed by ANIBAL VALLE DO ([id number]) on 06/05/2023 4:21:05 PM Referred By: Electronically Signed By:ANIBAL VALLE DO Transcribed By: MUS Signed By Anibal Valle DO 06/05 1621 Normal [facility] Erythrocyte distribution wid th [Ratio] by Automated countOrdered By: Anibal Valle on 06-05-2023 Erythrocyte distribution width (RBC) [Ratio] 13.9 % Normal 11.9-15.3 [facility] Comment on above: Performed By: #### H S TROP, BNP, BMP, CBC, PTT, PT #### [facility] [address] [place] [address] [place] Erythrocytes [#/volume] in B lood by Automated countOrdered By: Anibal Valle on 06-05-2023 RBC (Bld) [#/Vol] 4.29 10*6/uL Normal 3.60-5.00 [facility] Comment on above: Performed By: #### H S TROP, BNP, BMP, CBC, PTT, PT #### [facility] [address] [place] [address] [place] Glucose [Mass/volume] in Ser um or PlasmaOrdered By: Anibal Valle on 06-05-2023 Glucose [Mass/Vol] 106 mg/dL High 70-100 [facility] Comment on above: ADA recommended refe rence rangeRandom Glucose Reference Range is dependent on time and content of last meal. Glucose of more than 200 mg/dL in a nonstressed, ambulatory subject supports the diagnosis of Diabetes Mellitus. Result Comment: [place] om Glucose Reference Range is dependent on time and content of last meal. Glucose of more than 200 mg/dL in a nonstressed, ambulatory subject supports the diagnosis of Diabetes Mellitus. ADA recommended reference range Performed By: #### H S TROP, BNP, BMP, CBC, PTT, PT #### [facility] [address] [place] [id number] [place] Hematocrit [Volume Fraction] of Blood by Automated countOrdered By: Anibal Valle on 06-05-2023 Hematocrit (Bld) [Volume fraction] 34.4 % Normal 34.0-46.4 [facility] Comment on above: Performed By: #### H S TROP, BNP, BMP, CBC, PTT, PT #### [facility] [address] Hemoglobin [Mass/volume] in BloodOrdered By: Anibal Valle on 06-05-2023 Hemoglobin (Bld) [Mass/Vol] 11.9 g/dL Normal 11.8-15.4 [facility] Comment on above: Performed By: #### H S TROP, BNP, BMP, CBC, PTT, PT #### [address] Leukocytes [#/volume] correc herbert for nucleated erythrocytes in Blood by Automated counOrdered By: Anibal Valle on 06-05-2023 WBC corrected for nucl RBC Auto (Bld) [#/Vol] 4.4 10*3/uL 3.8-11.6 [facility] Leukocytes [#/volume] in Blo od by Automated countOrdered By: Anibal Valle on 06-05-2023 WBC (Bld) [#/Vol] 4.4 10*3/uL Normal 3.8-11.6 [facility] Comment on above: Performed By: #### H S TROP, BNP, BMP, CBC, PTT, PT #### [address] Lymphocytes [#/volume] in Bl ood by Automated countOrdered By: Anibal Valle on 06-05-2023 Lymphocytes (Bld) [#/Vol] 1.8 10*3/uL Normal 1.00-4.8 [facility] Comment on above: Performed By: #### H S TROP, BNP, BMP, CBC, PTT, PT #### [facility] [address] Lymphocytes/100 leukocytes i n Blood by Automated countOrdered By: Anibal Valle on 06-05-2023 Lymphocytes/100 WBC (Bld) 41.0 % Normal . [facility] Comment on above: Performed By: #### H S TROP, BNP, BMP, CBC, PTT, PT #### [address] MCH [Entitic mass] by Automa herebrt countOrdered By: Anibal Valle on 06-05-2023 MCH (RBC) [Entitic mass] 27.7 pg Normal 24.7-34.3 [facility] Comment on above: Performed By: #### H S TROP, BNP, BMP, CBC, PTT, PT #### [facility] [address] MCHC Auto (RBC) [Mass/Vol]Or dered By: Anibal Valle on 06-05-2023 MCHC (RBC) [Mass/Vol] 34.5 g/dL 32.0-35.[address] [facility] MCV [Entitic volume] by Auto mated countOrdered By: Anibal Valle on 06-05-2023 MCV (RBC) [Entitic vol] 80.2 fL Normal 80-100 [facility] Comment on above: Performed By: #### H S TROP, BNP, BMP, CBC, PTT, PT #### [facility] [address] Monocyte distribution width [Entitic volume] in Blood by AutomatedOrdered By: Anibal Valle on 06-05-2023 Monocyte distribution width Auto (Bld) [Entitic vol] 24.18 % 0.00-20.00 [facility] Comment on above: For adults in ED, MD W > 20.0 may be associated with a higher risk of sepsis during the first 12 hrs of hospital admission Neutrophils [#/volume] in Bl ood by Automated countOrdered By: Anibal Valle on 06-05-2023 Neutrophils (Bld) [#/Vol] 2.2 10*3/uL Normal 1.8-7.7 [facility] Comment on above: Performed By: #### H S TROP, BNP, BMP, CBC, PTT, PT #### [facility] [address] No Panel InformationOrdered By: Anibal Valle on 06-05-2023 Estimated GFR (CKD-EPI) > 60.0 mL/Min [facility] Creatinine Clearance (Chem 97.82 [facility] Nucleated erythrocytes [Pres ence] in Blood by Automated countOrdered By: Anibal Valle on 06-05-2023 Nucleated RBC Auto Ql (Bld) 0.1 /100{WBC} 0-0.5 [facility] Partial Thromboplastin Timeo n 06-05-2023 aPTT Coag (Bld) [Time] 28.0 s Normal 25.1-36.5 [facility] Comment on above: Result Comment: PERF ORMED BY: [place] [address] PATHOLOGIST HOOKER INSPECTOR LEVAR CASE M.D. Performed By: #### H S TROP, BNP, BMP, CBC, PTT, PT #### [facility] [address] [place] [address] [place] Platelet mean volume [Entiti c volume] in Blood by Automated countOrdered By: Anibal Valle on 06-05-2023 Platelet mean volume (Bld) [Entitic vol] 7.4 fL Normal 6.3-10.7 [facility] Comment on above: Performed By: #### H S TROP, BNP, BMP, CBC, PTT, PT #### [facility] [address] Platelet poor plasma interna tional normalized ratio (INR) by coagulation assay (relatOrdered By: Anibal Valle on 06-05-2023 INR Coag (PPP) [Relative time] 1.0 {INR} Normal [facility] Comment on above: INR Therapeutic Rang e A) Pre- and Peroperative OAT started two weeks before surgery. NOT HIP SURGERY: 1.5 - 2.5 HIP SURGERY: 2 - 3B) Primary and secondary prevention of venous THROMBOSIS: 2 - 3C) Active venous thrombosis, pulmonary embolismand prevention of recurrent venous thrombosis: 2 - 3D) Prevention of arterial thromboembolismincluding patients with mechanical heart valves: 3 - 4.5 Result Comment: INR Therapeutic Range A) Pre- [...] TROP, BNP, BMP, CBC, PTT, PT #### [facility] [address] Platelets [#/volume] in Bloo d by Automated countOrdered By: Anibal Valle on 06-05-2023 Platelets (Bld) [#/Vol] 336 10*3/uL Normal 150-450 [facility] Comment on above: Performed By: #### H S TROP, BNP, BMP, CBC, PTT, PT #### [facility] [address] Potassium [Moles/volume] in Serum or PlasmaOrdered By: Anibal Valle on 06-05-2023 Potassium [Moles/Vol] 3.8 mmol/L Normal 3.5-5.[address] [facility] Comment on above: Performed By: #### H S TROP, BNP, BMP, CBC, PTT, PT #### [address] Prothrombin Time INROrdered By: Anibal Valle on 06-05-2023 PT Coag (PPP) [Time] 12.0 s Normal 9.0-12.9 [facility] Comment on above: Performed By: #### H S TROP, BNP, BMP, CBC, PTT, PT #### [address] Serum or plasma anion gap de terminationOrdered By: Anibal Valle on 06-05-2023 Anion gap [Moles/Vol] 10.6 mmol/L Normal 6.0-15.0 [facility] Comment on above: Performed By: #### H S TROP, BNP, BMP, CBC, PTT, PT #### [address] Sodium [Moles/volume] in Ser um or PlasmaOrdered By: Anibal Valle on 06-05-2023 Sodium [Moles/Vol] 138 mmol/L Normal 136-145 [facility] Comment on above: Performed By: #### H S TROP, BNP, BMP, CBC, PTT, PT #### [facility] [address] [place] [address] Troponin I High Sensitivityo n 06-05-2023 Troponin I High Sensitivity 2.6 pg/mL Normal 0.0-15.0 [facility] Comment on above: Result Comment: PERF ORMED BY: [place] [address] PATHOLOGIST HOOKER INSPECTOR LEVAR CASE M.D. Performed By: #### H S TROP, BNP, BMP, CBC, PTT, PT ####[place] [id number] [facility] Troponin I High Sensitivity 2.5 pg/mL Normal 0.0-15.0 [facility] Comment on above: Result Comment: PERF ORMED BY: [place] [address] PATHOLOGIST HOOKER INSPECTOR LEVAR CASE M.D. Performed By: #### H S TROP ####[place] [id number] [facility] Troponin I.cardiac [Mass/vol ume] in Serum or Plasma by Detection limit <= 0.01 ng/Ordered By: Anibal Valle on 06-05-2023 Troponin I.cardiac DL <= 0.01 ng/mL [Mass/Vol] 2.6 pg/mL 0.0-15.0 [facility] Urea nitrogen [Mass/volume] in Serum or PlasmaOrdered By: Anibal Valle on 06-05-2023 Urea nitrogen [Mass/Vol] 10 mg/dL Normal 7-25 [facility] Comment on above: Performed By: #### H S TROP, BNP, BMP, CBC, PTT, PT #### [facility] [address] [place], [place] [id number] [place] XR chest 1V portableon 06-05 XR chest 1V portable [facility] [place] [address] XRay Report Signed Patient: Mary Leal MR#: [id number] 863 : 1970 Acct:[id number] Age/Sex: 53 / F ADM Date: 06/05/23 Loc: ER Room: Type: PRE ER Attending Dr: Copies to: Anibal D Valle, DO Ordering Provider: Anibal Valle DO Date [...] Andres Bullard M.D.06/05/2023 9:53 AM Dictation Location: [place] [address] Transcribed By: [facility] 06/05/23952 Dictated By: Andres Bullard DO 06/05/23 0952 Signed By: 06/05/2353 Normal [facility] 29on 05-31-2023 29 Addended by: SIOMARA MONTAGUE on: 06/13/2023 03:40 PM Modules accepted: Orders Normal [facility] BASIC METABOLIC PANELon 07- Anion gap [Moles/Vol] 12 mmol/L Normal 7-20 [facility] Comment on above: Performed By: #### L [id number] ####[facility] ([facility])[address] [place] [address] Calcium [Mass/Vol] 9.8 mg/dL Normal 8.6-10.3 [facility] Comment on above: Performed By: #### L [id number] ####[facility] ([facility])[address] [place] [address] Chloride [Moles/Vol] 105 mmol/L Normal 98-107 [facility] Comment on above: Performed By: #### L [id number] ####[facility] ([facility])[address] [place] [address] CO2 [Moles/Vol] 27 mmol/L Normal 21-31 [facility] Comment on above: Performed By: #### L [id number] ####[facility] ([facility])[address] [place] [address] Creatinine [Mass/Vol] 0.75 mg/dL Normal 0.60-1.20 [facility] Comment on above: Performed By: #### L [id number] ####[facility] ([facility])[address] [place] [address] GLOMERULAR FILTRATION RATE ML/MIN/1.73 SQ M.PREDICTED 96.3 mL/min/1.73m*2 Normal >60.0 [place] Comment on above: Result Comment: [facility]???s estimated glomerular filtration rate (eGFR) will [...] of individuals. Performed By: #### L [id number] ####[facility] ([facility])[address] [place] [address] Glucose [Mass/Vol] 103 mg/dL High 70-100 [facility] Comment on above: Performed By: #### L [id number] ####[facility] ([facility])[address] [place] [address] Potassium [Moles/Vol] 4.6 mmol/L Normal 3.5-5.1 [facility] Comment on above: Performed By: #### L [id number] ####[facility] ([facility])[address] [place] [address] Sodium [Moles/Vol] 139 mmol/L Normal 136-145 [facility] Comment on above: Performed By: #### L [id number] ####[facility] ([facility])[address] [place] [address] Urea nitrogen [Mass/Vol] 16 mg/dL Normal 7-25 [facility] Comment on above: Performed By: #### L [id number] ####[facility] ([facility])[address] [place] [address] UREA NITROGEN/CREATININE (MASS RATIO) IN SER/PLAS 21.3 Normal [facility] Comment on above: Performed By: #### L [id number] ####[facility] ([facility])[address] [place] [address] C-REACTIVE PROTEINon 023 C REACTIVE PROTEIN (MG/L) IN SER/PLAS 2.7 mg/L Normal 0.0-7.0 [facility] Comment on above: Performed By: #### L [id number] #### [facility] ([facility]) [address] [place] [address] CALPROTECTIN STOOLon 023 CALPROTECTIN, FECAL 171 ug/g High <=49 [facility] Comment on above: Result Comment: REFE RENCE INTERVAL: Calprotectin, Fecal by Immunoassay Less than 50 ug/g.........Normal 50-120 ug/g...............Borderline elevated, test should be re-evaluated in 4-6 weeks. 121 ug/g or greater.......Elevated Performed By: [facility] [address] [place] [address] Dump Truck Operator: Moisés Moreau MD, PhD Performed By: #### L [id number] #### [facility] ([facility]) [address] [place] [address] CBC WITH AUTO DIFFERENTIALon 05-31-2023 Basophils (Bld) [#/Vol] 0.06 10*3/uL Normal 0.00-0.20 [facility] Comment on above: Performed By: #### L [id number] #### [facility] ([facility]) [address] [place] [address] Basophils/100 WBC (Bld) 0.9 % Normal 0.0-1.0 [facility] Comment on above: Performed By: #### L [id number] #### [facility] [address] [place] [address] Eosinophils (Bld) [#/Vol] 0.09 10*3/uL Normal 0.00-0.50 [facility] Comment on above: Performed By: #### L [id number] #### [facility] ([facility]) [address] [facility] [place] [address] Eosinophils/100 WBC (Bld) 1.4 % Normal 0.0-6.0 [facility] Comment on above: Performed By: #### L [id number] #### [facility] ([facility]) [address] [place] [address] Erythrocyte distribution width (RBC) [Ratio] 12.7 % Normal 11.5-15.0 [facility] Comment on above: Performed By: #### L [id number] #### [facility] ([facility]) [address] [place] [address] ERYTHROCYTE MEAN CORPUSCULAR HEMOGLOBIN CONCENTRATION (G/DL) BY AUTOMATED 32.2 g/dL Normal 32.0-35.0 [facility] Comment on above: Performed By: #### L [id number] #### [facility] ([facility]) [address] [place] [address] Hematocrit (Bld) [Volume fraction] 37.9 % Normal 36.0-48.0 [facility] Comment on above: Performed By: #### L [id number] #### [facility] ([facility]) [address] [place] [address] Hemoglobin (Bld) [Mass/Vol] 12.2 g/dL Normal 12.0-15.0 [facility] Comment on above: Performed By: #### L [id number] #### [facility] [address] [facility] [place] [address] Immature granulocytes (Bld) [#/Vol] 0.02 10*3/uL Normal 0.00-0.20 [facility] Comment on above: Performed By: #### L [id number] #### [facility] ([facility]) [address] [place] [address] Immature granulocytes/100 WBC (Bld) 0.3 % Normal 0.0-1.0 [facility] Comment on above: Performed By: #### L [id number] #### [facility] [address] [place] [address] Lymphocytes (Bld) [#/Vol] 2.04 10*3/uL Normal 1.20-4.00 [facility] Comment on above: Performed By: #### L [id number] #### [facility] ([facility]) [address] [place] [address] Lymphocytes/100 WBC (Bld) 31.9 % Normal 20.0-45.0 [facility] Comment on above: Performed By: #### L [id number] #### [facility] ([facility]) [address] [place] [address] MCH (RBC) [Entitic mass] 27.0 pg Normal 27.0-33.0 [facility] Comment on above: Performed By: #### L [id number] #### [facility] ([facility]) [address] [place] [address] MCV (RBC) [Entitic vol] 83.8 fL Normal 82.0-98.0 [facility] Comment on above: Performed By: #### L [id number] #### [facility] [address] [place] [address] Monocytes (Bld) [#/Vol] 0.35 10*3/uL Normal 0.10-1.00 [facility] Comment on above: Performed By: #### L [id number] #### [facility] [address] [place] [address] Monocytes/100 WBC (Bld) 5.5 % Normal 5.0-12.0 [facility] Comment on above: Performed By: #### L [id number] #### [facility] [address] [place] [address] Neutrophils (Bld) [#/Vol] 3.83 10*3/uL Normal 1.60-7.60 [facility] Comment on above: Performed By: #### L [id number] #### [facility] [facility]) [address] [place] [address] Neutrophils/100 WBC (Bld) 60.0 % Normal 40.0-72.0 [facility] Comment on above: Performed By: #### L [id number] #### [facility] ([facility]) [address] [place] [address] NRBC (PER 100 WBCS) BY AUTOMATED COUNT 0.0 % Normal 0 [facility] Comment on above: Performed By: #### L [id number] #### [facility] ([facility]) [address] [place] [address] PLATELETS (10*3/UL) IN BLOOD AUTOMATED COUNT 485 10*3/uL High 150-400 [facility] Comment on above: Performed By: #### L [id number] #### [facility] ([facility]) [address] [place] [address] RBC (Bld) [#/Vol] 4.52 10*6/uL Normal 3.80-5.00 [facility] Comment on above: Performed By: #### L [id number] #### [facility] ([facility]) [address] [place] [address] WBC (Bld) [#/Vol] 6.39 10*3/uL Normal 4.00-10.60 [facility] Comment on above: Performed By: #### L [id number] #### [facility] ([facility]) [address] [place] [address] ENTERIC BACTERIA, LIMITED PA RASITE DNA PANELon 05-31-2023 CAMPYLOBACTER SPECIES Negative Normal Negative [facility] Comment on above: Order [...] the amplified DNA. Performed By: #### L [id number] ####[facility] [place] [address] CRYPTOSPORIDIUM (HOMINIS AND PARVUM) Negative Normal Negative [facility] Comment on above: Order Comment: Testi [...] the amplified DNA. Performed By: #### L [id number] ####[facility] [place] [address] ENTAMOEBA HISTOLYTICA Negative Normal Negative [facility] Comment on above: Order [...] the amplified DNA. Performed By: #### L [id number] ####[facility] (BEAKER)[address] [place] [address] ENTEROTOXIGENIC E. COLI (ETEC) LT/ST Negative Normal Negative [facility] Comment on above: Order Comment: Testi [...] the amplified DNA. Performed By: #### L [id number] ####[facility] (BEAKER)[address] [place] [address] GIARDIA LAMBLIA Negative Normal Negative [facility] [...] the amplified DNA. Performed By: #### L [id number] ####[facility] (BEAKER)[address] [place] [address] PLESIOMONAS SHIGELLOIDES Negative Normal Negative [facility] Comment on above: Order Comment: Testi [...] the amplified DNA. Performed By: #### L [id number] ####[facility] (BEAKER)[address] [place] [address] SALMONELLA SPECIES Negative Normal Negative [facility] Comment on above: Order Comment: Testi [...] the amplified DNA. Performed By: #### L [id number] ####[facility] (BEAKER)[address] [place] [address] SHIGA-LIKE TOXIN-PRODUCING E. COLI (STEC) STX1/STX2 Negative Normal Negative [facility] Comment on above: Order Comment: Testi [...] the amplified DNA. Performed By: #### L [id number] ####[facility] (BEAKER)[address] [place] [address] SHIGELLA SPECIES Negative Normal Negative [facility] Comment on above: Order Comment: [...] the amplified DNA. Performed By: #### L [id number] ####[facility] (BEAKER)[address] [place] [address] VIBRIO SPECIES Negative Normal Negative [facility] Comment on above: Order Comment: Testi [...] the amplified DNA. Performed By: #### L [id number] ####[facility] (BEAKER)[address] [place] [address] YERSINIA ENTEROCOLITICA Negative Normal Negative [facility] Comment on above: Order Comment: Testi [...] the amplified DNA. Performed By: #### L [id number] ####[facility] (BEAKER)[address] [place] [address] IGAon 05-31-2023 Magnesium [Mass/Vol] 265 mg/dL Normal 60-413 [facility] Comment on above: Performed By: #### L [id number] #### [facility] (BEAKER) [address] [place] [address] Labon 05-31-2023 Lab [id number] Darrian Leal en 1970 F Date Provider Department Center 05/31/2023 2244-[facility] MP LAB RESOURCE MP DRAW Medical Pavi No family history on file Normal [facility] Office Visiton 05-31-2023 Follow-up visit [id number] Darrian Leal en 1970 F Date Provider Department Center 05/31/2023 MORENAPARISHThmoas LYNN GI Medical Pavi No family history on file Level of Service:66127 [place] OFFICE/OUTPATIENT NEW MODERATE MDM 45-59 MINUTES Reason for Visit and Comments: Nausea [70] GERD [448229] Abdominal Pain [158205] New Patient [632] Normal [facility] PANCREATIC ELASTASE, FECALon 05-31-2023 PANCREATIC ELASTASE, FECAL 700 ug/g Normal >=100 [facility] Comment on above: Result Comment: REFE RENCE INTERVAL: Pancreatic Elastase Fecal by Immunoassay Less than 100 ug/g............Severe insufficiency 100 - 199 ug/g................Moderate insufficiency 200 ug/g or greater...........Normal INTERPRETIVE INFORMATION: Pancreatic Elastase Fecal by Immunoassay Reference intervals do not apply for infants less than one month old. Performed by [facility], [address] [place], [place] [id number] [email or web address], Moisés Moreau MD, PHD, Lab. Director Performed By: #### L [id number] #### [facility] (BEAKER) [address] [place] [address] SEDIMENTATION RATEon 023 SEDIMENTATION RATE, ERYTHROCYTE 13 mm/hr Normal <=20 [facility] Comment on above: Performed By: #### L [id number] #### [facility] (BEAKER) [address] [place] [address] TISSUE TRANSGLUTAMINASE, IGA on 05-31-2023 TISSUE TRANSGLUTAMINASE, IGA <2 Normal 0-3 [facility] Comment on above: Result Comment: INTE [...] positive predictive value for disease. Performed By: [facility] [address] [place] [address] Dump Truck Operator: Moisés Moreau MD, PhD Performed By: #### L [id number] #### [facility] (BEAKER) [address] [place] [address] Refillon 05-27-2023 Refill [id number] Elvis,Krist en 1970 F Date Provider Department [place] 05/27/2023 [facility] Gerardo Heal No family history on file Reason for Visit and Comments: Med Refill [[id number]] [facility] Behavioral Health Telemedici neon 05-22-2023 Behavioral Health Telemedicine [id number] Denver Lealisten 1970 [facility] Provider Department [place] 05/22/202318756-UHOIRADHA STARK [facility] Gerardo Heal No family history on file Reason for Visit and Comments: Anxiety [9] Pain [136] Normal [facility] Orders Onlyon 05-18-2023 Orders Only [id number] Denver Lealist en 1970 Provider Department [place] 05/18/2023 [facility] Gerardo Heal No family history on file [facility] Behavioral Health Telemedici neon 05-17-2023 Behavioral Health Telemedicine [id number] ElvisMary 1970 Date Provider Department [place] 05/17/2023 59938-YNCTRADHA STARK [facility] Gerardo Heal No family history on file Reason for Visit and Comments: Anxiety [9] MDD (Major Depressive Disorder) [401] Normal [facility] Behavioral [facility] Telemedicine [id number] [place] Lealisten 1970 Date Provider Department [place] 05/17/2023 [facility] Gerardo Heal No family history on file Level of Service:08985 [place] OFFICE/OUTPATIENT ESTABLISHED MOD MDM 30-39 MIN Reason for Visit and Comments: Telehealth Audio/video Visit [871] Normal [facility] CBC AUTO DIFFon 04-05-2023 BASO # 0.0 103/ul Normal 0.0-0.1 Comment on above: Performed By: #### L ACT #### [facility] [address] [address] [address] Mirian Velasco Basophils/100 WBC (Bld) 0.8 % Normal 0.2-2.0 [facility] Comment on above: Performed By: #### L ACT #### [facility] [address] [address] [address] Mirian Velasco EO # 0.1 103/ul Normal 0.0-0.7 Comment on above: Performed By: #### L ACT #### [facility] [address] [place] [address] Dr. Mirian Velasco Eosinophils/100 WBC (Bld) 1.1 % Normal 0.9-7.0 Comment on above: Performed By: #### L ACT #### [facility] [address] [place] [address] Dr. Mirian Velasco Erythrocyte distribution width (RBC) [Ratio] 13.1 % Normal 11.0-15.0 Comment on above: Performed By: #### L ACT #### [facility] [address] [place] [address] Dr. Mirian Velasco Hematocrit (Bld) [Volume fraction] 37.6 % Normal 36.0-48.0 Comment on above: Performed By: #### L ACT #### [facility] [address] [place] [address] Dr. Mirian Velasco Hemoglobin (Bld) [Mass/Vol] 12.4 g/dL Normal 12.0-16.0 [facility] Comment on above: Performed By: #### L ACT #### [facility] [address] [place] [address] Dr. Mirian Velasco IG # 0.01 10e3/ul Normal 0.00-0.03 Comment on above: Performed By: #### L ACT #### [facility] [address] [place] [address] Dr. Mirian Velasco IG % 0.2 % Normal 0.0-0.5 Comment on above: Performed By: #### L ACT #### [facility] [address] [place] [address] Dr. Mirian Velasco LYMPH # 2.5 103/ul Normal 1.2-3.8 [facility] Comment on above: Performed By: #### L ACT #### [facility] [address] [place] [address] Dr. Mirian Velasco Lymphocytes/100 WBC (Bld) 46.2 % Normal 20.5-60.0 Comment on above: Performed By: #### L ACT #### [facility] [address] [place] [address] Dr. Mirian Velasco MANUAL DIFF REQ NO Normal [facility] Comment on above: Performed By: #### L ACT #### [facility] [address] [place] [address] Dr. Mirian Velasco MCH (RBC) [Entitic mass] 27.1 pg Normal 26.7-34.0 Comment on above: Performed By: #### L ACT #### [facility] [address] [place] [address] Dr. Mirian Velasco MCHC (RBC) [Mass/Vol] 33.0 g/dL Normal 29.9-35.2 [facility] Comment on above: Performed By: #### L ACT #### [facility] [address] [place] [address] Dr. Mirian Velasco MCV (RBC) [Entitic vol] 82.3 fL Normal 81.0-99.0 [facility] Comment on above: Performed By: #### L ACT #### [facility] [address] [place] [address] Dr. Mirian Velasco MONO # 0.4 103/ul Normal 0.3-0.8 [facility] Comment on above: Performed By: #### L ACT #### [facility] [address] [place] [address] Dr. Mirian Velasco Monocytes/100 WBC (Bld) 7.9 % Normal 1.7-12.0 Comment on above: Performed By: #### L ACT #### [facility] [address] [place] [address] Dr. Mirian Velasco NEUT # 2.3 103/ul Normal 1.4-6.5 Comment on above: Performed By: #### L ACT #### [facility] [address] [address] [address] Mirian Velasco Neutrophils/100 WBC (Bld) 43.8 % Normal 43.0-75.0 Comment on above: Performed By: #### L ACT #### [facility] [address] [place] [address] Dr. Mirian Velasco Platelet mean volume (Bld) [Entitic vol] 9.2 fL Critically low 9.5-13.5 Comment on above: Performed By: #### L ACT #### [facility] [address] [place] [address] Dr. Mirian Velasco PLT 318 103/ul Normal 150-450 Comment on above: Performed By: #### L ACT #### [facility] [address] [place] [address] Dr. Mirian Velasco RBC 4.57 106/ul Normal 4.20-5.40 Comment on above: Performed By: #### L ACT #### [facility] [address] [place] [address] Dr. Mirian Velasco WBC 5.3 103/ul Normal 4.0-11.0 Comment on above: Performed By: #### L ACT #### [facility] [address] [place] [address] Dr. Mirian Velasco PROF CHEM 8 (BAS METB)on Anion gap [Moles/Vol] 19.0 mmol/L Normal [facility] Comment on above: Performed By: #### H STROPN, BMP ####[facility] [address] [address]Dr. Mirian Velasco Calcium [Mass/Vol] 9.6 mg/dL Normal 8.5-10.1 [facility] Comment on above: Performed By: #### H FAUSTO, BMP ####[facility] [address] [address]Dr. Mirian Velasco Chloride [Moles/Vol] 103 mmol/L Normal 98-107 Comment on above: Performed By: #### H FAUSTO, BMP ####[facility] [address] [address]Dr. Mirian Velasco CO2 [Moles/Vol] 23.1 mmol/L Normal 21.0-32.0 [facility] Comment on above: Performed By: #### H FAUSTO, BMP ####[facility] [address] [place], [place] [address]Dr. Mirian Velasco Creatinine [Mass/Vol] 0.84 mg/dL Normal 0.55-1.02 Comment on above: Performed By: #### H FAUSTO, BMP ####[facility] [address] [address]Dr. Mirian Velasco EGFR-AF TAIWANESE >60 Normal >=60 [facility] Comment on above: Performed By: #### H FAUSTO, BMP ####[facility] [address] [place], [place] [address]Dr. Mirian Velasco EGFR-NON AF TAIWANESE >60 Normal >=60 Comment on above: Performed By: #### H FAUSTO, BMP ####[facility] [address] [address]Dr. Mirian Velasco Glucose [Mass/Vol] 129 mg/dL Critically high 74-106 [facility] Comment on above: Performed By: #### H FAUSTO, BMP ####[facility] [address] [address]Dr. Mirian Velasco Potassium [Moles/Vol] 3.1 mmol/L Critically low 3.5-5.1 Comment on above: Performed By: #### H FAUSTO, BMP ####[facility] [address] [place], [place] [address]Dr. Mirian Velasco Sodium [Moles/Vol] 142 mmol/L Normal 136-145 [facility] Comment on above: Performed By: #### H FAUSTO, BMP ####[facility] [address] [address]Dr. Mirian Velasco Urea nitrogen [Mass/Vol] 12.0 mg/dL Normal 7.0-18.0 Comment on above: Performed By: #### H FAUSTO, BMP ####[facility] [address] [address]Dr. Mirian Velasco Urea nitrogen/Creatinine [Mass ratio] 14.3 mg/mg Normal Comment on above: Performed By: #### H FAUSTO, SEGUNDO ####[facility] [address] [address]Dr. Mirian Velasco TROPONIN, HIGH SENSITIVITYon 04-05-2023 HSTROP 5.6 pg/mL Normal 4.0-51.3 Comment on above: Result Comment: CUT- OFF POINTS HAVE BEEN ESTABLISHED BASED ON THE FOURTH UNIVERSAL DEFINITIONS OF MYOCARDIAL INFARCTION. THE UPPER REFERENCE LIMIT (URL) OF TROPONIN, DEFINED THE 99TH PERCENTILE OF cTnI DISTRIBUTION IN A REFERENCE POPULATION, HAS BEEN CONFIRMED THE DECISION THRESHOLD FOR [place] DIAGNOSIS. Performed By: #### H FAUSTO BMP ####[facility] [address] [address]Dr. Mirian Velasco CBC AUTO DIFFon 03-06-2023 BASO # 0.1 103/ul Normal 0.0-0.1 Comment on above: Performed By: #### L ACT #### [facility] [address] [place] [address] Dr. Mirian Velasco Basophils/100 WBC (Bld) 0.8 % Normal 0.2-2.0 [facility] Comment on above: Performed By: #### L ACT #### [facility] [address] [place] [address] Dr. Mirian Velasco EO # 0.1 103/ul Normal 0.0-0.7 Comment on above: Performed By: #### L ACT #### [facility] [address] [place] [address] Dr. Mirian Velasco Eosinophils/100 WBC (Bld) 1.4 % Normal 0.9-7.0 Comment on above: Performed By: #### L ACT #### [facility] [address] [place] [address] Dr. Mirian Velasco Erythrocyte distribution width (RBC) [Ratio] 13.1 % Normal 11.0-15.0 Comment on above: Performed By: #### L ACT #### [facility] [address] [place] [address] Dr. Mirian Velasco Hematocrit (Bld) [Volume fraction] 37.9 % Normal 36.0-48.0 Comment on above: Performed By: #### L ACT #### [facility] [address] [place] [address] Dr. Mirian Velasco Hemoglobin (Bld) [Mass/Vol] 12.7 g/dL Normal 12.0-16.0 Comment on above: Performed By: #### L ACT #### [facility] [address] [place] [address] Dr. Mirian Velasco IG # 0.01 10e3/ul Normal 0.00-0.03 Comment on above: Performed By: #### L ACT #### [facility] [address] [place] [address] Dr. Mirian Velasco IG % 0.2 % Normal 0.0-0.5 [facility] Comment on above: Performed By: #### L ACT #### [facility] [address] [place] [address] Dr. Mirian Velasco LYMPH # 1.8 103/ul Normal 1.2-3.8 [facility] Comment on above: Performed By: #### L ACT #### [facility] [address] [place] [address] Dr. Mirian Velasco Lymphocytes/100 WBC (Bld) 27.2 % Normal 20.5-60.0 Comment on above: Performed By: #### L ACT #### [facility] [address] [place] [address] Dr. Mirian Velasco MANUAL DIFF REQ NO Normal [facility] Comment on above: Performed By: #### L ACT #### [facility] [address] [place] [address] Dr. Mirian Velasco MCH (RBC) [Entitic mass] 27.5 pg Normal 26.7-34.0 Comment on above: Performed By: #### L ACT #### [facility] [address] [place] [address] Dr. Mirian Velasco MCHC (RBC) [Mass/Vol] 33.5 g/dL Normal 29.9-35.2 [facility] Comment on above: Performed By: #### L ACT #### [facility] [address] [place] [address] Dr. Mirian Velasco MCV (RBC) [Entitic vol] 82.0 fL Normal 81.0-99.0 Comment on above: Performed By: #### L ACT #### [facility] [address] [place] [address] Dr. Mirian Velasco MONO # 0.4 103/ul Normal 0.3-0.8 Comment on above: Performed By: #### L ACT #### [facility] [address] [place] [address] Dr. Mirian Velasco Monocytes/100 WBC (Bld) 5.5 % Normal 1.7-12.0 Comment on above: Performed By: #### L ACT #### [facility] [address] [place] [address] Dr. Mirian Velasco NEUT # 4.3 103/ul Normal 1.4-6.5 [facility] Comment on above: Performed By: #### L ACT #### [facility] [address] [place] [address] Dr. Mirian Velasco Neutrophils/100 WBC (Bld) 64.9 % Normal 43.0-75.0 Comment on above: Performed By: #### L ACT #### [facility] [address] [place], [place] [id number] Dr. Mirian Velasco Platelet mean volume (Bld) [Entitic vol] 9.4 fL Critically low 9.5-13.5 Comment on above: Performed By: #### L ACT #### [facility] [address] [place] [address] Dr. Mirian Velasco PLT 317 103/ul Normal 150-450 [facility] Comment on above: Performed By: #### L ACT #### [facility] [address] [address] [address] Mirian Velasco RBC 4.62 106/ul Normal 4.20-5.40 Comment on above: Performed By: #### L ACT #### [facility] [address] [place] [address] Dr. Mirian Velasco WBC 6.6 103/ul Normal 4.0-11.0 Comment on above: Performed By: #### L ACT #### [facility] [address] [place] [address] Dr. Mirian Velasco CULTURE BLOODon 03-06-2023 Microscopic examination of blood, culture Culture Observations: NO GROWTH AT 5 DAYS. Normal [facility] Comment on above: Performed By: #### B LDCX2 ####[facility] [address] [address]Dr. Mirian Velasco Performed By: #### B LDCX1 #### [facility] [address] [place] [address] Dr. Mirian Velasco LACTATE/LACTIC ACIDon 2022 Lactate [Moles/Vol] 2.2 mmol/L Critically high 0.4-2.0 Comment on above: Performed By: #### L ACT #### [facility] [address] [place] [address] Dr. Mirian Velasco LIPASEon 03-06-2023 Lipase [Catalytic activity/Vol] 53.0 U/L Critically low 73.0-393.0 Comment on above: Performed By: #### L ACT #### [facility] [address] [place] [address] Dr. Mirian Velasco PROF 14(COMP METB)on 023 Albumin [Mass/Vol] 3.4 g/dL Normal 3.4-5.0 [facility] Comment on above: Performed By: #### L ACT #### [facility] [address] [place] [address] Dr. Mirian Velasco Albumin/Globulin [Mass ratio] 1.0 {ratio} Normal Comment on above: Performed By: #### L ACT #### [facility] [address] [place] [address] Dr. Mirian Velasco ALP [Catalytic activity/Vol] 123 U/L Critically high 46-116 Comment on above: Performed By: #### L ACT #### [facility] [address] [place] [address] Dr. Mirian Velasco ALT [Catalytic activity/Vol] 33 U/L Normal 14-59 Comment on above: Performed By: #### L ACT #### [facility] [address] [place] [address] Dr. Mirian Velasco Anion gap [Moles/Vol] 13.1 mmol/L Normal [facility] Comment on above: Performed By: #### L ACT #### [facility] [address] [place] [address] Dr. Mirian Velasco AST [Catalytic activity/Vol] 31 U/L Normal 15-37 Comment on above: Performed By: #### L ACT #### [facility] [address] [place] [address] Dr. Mirian Velasco Bilirubin [Mass/Vol] 0.3 mg/dL Normal 0.2-1.0 Comment on above: Performed By: #### L ACT #### [facility] [address] [place] [address] Dr. Mirian Velasco Calcium [Mass/Vol] 8.9 mg/dL Normal 8.5-10.1 [facility] Comment on above: Performed By: #### L ACT #### [facility] [address] [place] [address] Dr. Mirian Velasco Chloride [Moles/Vol] 107 mmol/L Normal 98-107 Comment on above: Performed By: #### L ACT #### [facility] [address] [address] [address] Mirian Velasco CO2 [Moles/Vol] 25.6 mmol/L Normal 21.0-32.0 [facility] Comment on above: Performed By: #### L ACT #### [facility] [address] [address] [address] Mirian Velasco Creatinine [Mass/Vol] 0.70 mg/dL Normal 0.55-1.02 Comment on above: Performed By: #### L ACT #### [facility] [address] [place] [address] Dr. Mirian Velasco EGFR-AF TAIWANESE >60 Normal >=60 [facility] Comment on above: Performed By: #### L ACT #### [facility] [address] [place] [address] Dr. Mirian Velasco EGFR-NON AF TAIWANESE >60 Normal >=60 Comment on above: Performed By: #### L ACT #### [facility] [address] [address] [address] Mirian Velasco Globulin (S) [Mass/Vol] 3.4 g/dL Normal Comment on above: Performed By: #### L ACT #### [facility] [address] [address] [address] Mirian Velasco Glucose [Mass/Vol] 125 mg/dL Critically high 74-106 [facility] Comment on above: Performed By: #### L ACT #### [facility] [address] [place] [address] Dr. Mirian Velasco Potassium [Moles/Vol] 3.7 mmol/L Normal 3.5-5.1 Comment on above: Performed By: #### L ACT #### [facility] [address] [address] [address] Mirian Velasco Protein [Mass/Vol] 6.8 g/dL Normal 6.4-8.2 [facility] Comment on above: Performed By: #### L ACT #### [facility] [address] [address] [address] Mirian Velasco Sodium [Moles/Vol] 142 mmol/L Normal 136-145 [facility] Comment on above: Performed By: #### L ACT #### [facility] [address] [address] [address] Mirian Velasco Urea nitrogen [Mass/Vol] 16.0 mg/dL Normal 7.0-18.0 Comment on above: Performed By: #### L ACT #### [facility] [address] [address] [address] Mirian Velasco Urea nitrogen/Creatinine [Mass ratio] 22.9 mg/mg Normal Comment on above: Performed By: #### L ACT #### [facility] [address] [place] [address] Dr. Mirian Velasco PROTIMEon 03-06-2023 INR Coag (PPP) [Relative time] {INR} Normal Comment on above: Performed By: #### P T #### [facility] [address] [address] [address] Mirian Velasco INR GUIDELINES SEE BELOW Normal [facility] Comment on above: Result Comment: SAMEER RED INR: 2.0 - 3.0 CONDITIONS NOT LISTED BELOW 2.5 - 3.5 FOR PROSTHETIC HEART VALVE REPLACEMENT 2.5 - 3.5 RECURRENT THROMBOSIS Performed By: #### P T #### [facility] [address] [address] [address] Mirian Velasco PT Coag (PPP) [Time] 9.8 s Normal 9.0-11.6 Comment on above: Performed By: #### P T #### [facility] [address] [place] [address] Dr. Mirian Velasco TROPONIN, HIGH SENSITIVITYon 03-06-2023 HSTROP 4.4 pg/mL Normal 4.0-51.3 Comment on above: Result Comment: CUT- OFF POINTS HAVE BEEN ESTABLISHED BASED ON THE FOURTH UNIVERSAL DEFINITIONS OF MYOCARDIAL INFARCTION. THE UPPER REFERENCE LIMIT (URL) OF TROPONIN, DEFINED THE 99TH PERCENTILE OF cTnI DISTRIBUTION IN A REFERENCE POPULATION, HAS BEEN CONFIRMED THE DECISION THRESHOLD FOR [place] DIAGNOSIS. Performed By: #### L ACT #### [facility] [id number] Mirian Velasco Bacteria identified Aer cx N om (Unsp spec)Ordered By: Niecy Duron on 03-02-2023 Superficial Wound Culture Methicillin Resis Staph Aureus [facility] CT LSPINE WO CONon 3 CT LSPINE [...] by: NANCY BELLE Date: 2023-02-19 06:42 Normal XR ESOPHAGRAMon 12-26-2022 [facility] NURSING PROGon 12-08-2022 NURSING PROG HNO ID: [id number] Author: Lisa Contreras RN Service: Nursing Author Type: Registered Nurse Type: Nursing Progress Note Filed: 12/08/2022 11:28 AM Note Text: [facility] ENDOSCOPY POST PROCEDURE FOLLOW UP CALL [phone] (home) Date Phone Call Made: 12/08/2022 Attempt: [...] EVALon 023 ANES POSTPROC EVAL HNO ID: [id number] Author: Andres Sheets DO Service: Anesthesiology Author [...] December 07, 2022 TIME: 12:44 PM CSN: [id number] [facility] ANES PRE-OPon 12-07-2022 ANES PRE-OP HNO ID: [id number] Author: Andres Sheets DO Service: Anesthesiology Author Type: Anesthesiologist Type: Anesthesia Preprocedure Evaluation Filed: 12/07/2022 9:42 AM Note Text: ANESTHESIOLOGY DAY OF SURGERY NOTE : 1970 Procedure Information Date/Time: 12/07/22 1030 Scheduled providers: Winston Hannah DO Procedures: EGD - THERAPEUTIC, EUS, OR TUBE INTERVENTIONS PH MONTIEL INSERT OFF MEDS Location: [facility] Estimated body mass index is 24.55 [...] 0920 Pulse 91 12/07/22 0920 Resp 16 12/07/22 0920 Temp 36 ?C [...] December 07, 2022 TIME: 9:40 AM CSN: [id number] [facility] HISTORY PHYSICALon 3 HISTORY PHYSICAL HNO ID: [id number] Author: Soraida Mathis PA-C Service: Gastroenterology Author Type: Physician Import/Export Specialist Type: HANDP Filed: 12/07/2022 9:48 AM Note [...] PAIN, N/V/D Medication reconciliation list reviewed in [facility]. Past medical history, past surgical history, social history and family history reviewed and updated in [facility]. ALLERGIES Allergies: Risperidone Intolerance Comment:Breast discharge SEE [facility] BP 109/74 Pulse 91 [...] Upper GI endoscopyon [address] [facility] Gastrointestinal Endoscopy Patient Name: Mary Leal [...] by the physician, the nurse and the tub chucker in the pre-procedure area in the endoscopy [...] previously scheduled. Procedure Code(s): --- Professional --- 32154, Esophagogastroduodenos copy, flexible, transoral; with dilation of gastric/duodenal stricture(s) (eg, balloon, bougie) Diagnosis Code(s): --- Professional --- K21.00, Gastro-esophageal reflux disease with esophagitis, without bleeding K31.84, Gastroparesis CPT copyright 2020 [employer]. All rights reserved. The codes documented in this report are preliminary and upon last sorter review may be revised to meet current compliance requirements. Attending Participation: I personally performed the entire procedure. Scope In: 10:39:12 AM Scope Out: 10:46:13 AM MD Winston Diaz MD 12/07/2022 10 (more content not included)... Normal [facility] ANES POSTPROC EVALon 023 ANES POSTPROC EVAL HNO ID: [id number] Author: Annabel Burton MD Service: Anesthesiology Author [...] December 05, 2022 TIME: 2:00 PM CSN: [id number] [facility] ANES PRE-OPon 12-05-2022 ANES PRE-OP HNO ID: [id number] Author: Annabel Burton MD Service: Anesthesiology Author [...] December 05, 2022 TIME: 8:26 AM CSN: [id number] Normal [facility] Flexible Sigmoidoscopyon Flexible sigmoidoscopy [facility] Gastrointestinal Endoscopy Patient Name: Mary Leal Procedure Date: 12/05/2022 8:55 AM Date of : 1970 Admit Type: Outpatient Age: 52 Room: [address] [address] Gender: Female Note Status: Finalized Attending MD: [...] present medications. Procedure Code(s): --- Professional --- 54863, 52, Sigmoidoscopy, flexible; diagnostic, including collection of specimen(s) by brushing or washing, when performed (separate procedure) Diagnosis Code(s): --- Professional --- K59.00, Constipation, unspecified CPT copyright 2020 [employer]. All rights reserved. The codes documented in this report are preliminary and upon last sorter review may be revised to meet current [...] Hospital HISTORY PHYSICALon HISTORY PHYSICAL HNO ID: [id number] Author: Lashanda Dorado PA-C Service: Gastroenterology Author Type: Physician Import/Export Specialist Type: HANDP Filed: 12/05/2022 8:43 AM Note [...] PAIN, N/V/D Medication reconciliation list reviewed in [facility]. Past medical history, past surgical history, social history and family history reviewed and updated in [facility]. ALLERGIES Allergies: Risperidone Intolerance Comment:Breast discharge SEE [facility] There were no vitals [...] NURSING PROGon 12-05-2022 NURSING PROG HNO ID: [id number] Author: Lisa Contreras, MAKI Service: ? Author Type: Registered Nurse Type: Nursing Progress Note Filed: 12/05/2022 1:07 PM Note Text: [facility] ENDOSCOPY PRE PROCEDURE CALL Akiko. I'm calling from [facility] endoscopy to provide you with the information for your surgery/procedure tomorrow. 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 tbd What is the best number for your gravel truck driver to be reached at tomorrow for updates? tbd Your gravel truck driver is allowed to wait here [...] Do not wear makeup, lotion, or finger mexican. yes Patient instructed: Please bring a list [...] given Any barriers to Patient learning (confusion? 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 If patient needs to reschedule please call: [phone] [facility] phone number: [phone] Type of instruction given: Verbal by telephone contact. Normal [facility] NURSING PROGon 12-02-2022 NURSING PROG HNO ID: [id number] Author: Isra Harman RN Service: ? Author Type: Registered Nurse Type: Nursing Progress Note Filed: 12/02/2022 10:54 AM Note Text: [facility] ENDOSCOPY PRE PROCEDURE CALL Akiko. I'm calling from [facility] endoscopy to provide you with the information for your surgery/procedure tomorrow. 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 Rich What is the best number for your gravel truck driver to be reached at tomorrow for updates? 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 yes Patient instructed: Please bring a list [...] given Any barriers to Patient learning (confusion? 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 If patient needs to reschedule please call: [phone] [facility] phone number: [phone] Type of instruction given: Verbal by telephone contact. Normal [facility] AMYLASEon 10-20-2022 Amylase [Catalytic activity/Vol] 33 U/L Normal 25-115 Comment on above: Performed By: #### L ACT #### [facility] [address] [address] [address] Mirian Velasco CBC AUTO DIFFon 10-20-2022 BASO # 0.0 103/ul Normal 0.0-0.1 Comment on above: Performed By: #### P T #### [facility] [address] [address] [address] Mirian Velasco Basophils/100 WBC (Bld) 0.2 % Normal 0.2-2.0 Comment on above: Performed By: #### P T #### [facility] [address] [address] [address] Mirian Velasco EO # 0.1 103/ul Normal 0.0-0.7 Comment on above: Performed By: #### P T #### [facility] [address] [place] [address] Dr. Mirian Velasco Eosinophils/100 WBC (Bld) 0.6 % Critically low 0.9-7.0 Comment on above: Performed By: #### P T #### [facility] [address] [place] [address] Dr. Mirian Velasco Erythrocyte distribution width (RBC) [Ratio] 13.6 % Normal 11.0-15.0 Comment on above: Performed By: #### P T #### [facility] [address] [place] [address] Dr. Mirian Velasco Hematocrit (Bld) [Volume fraction] 41.0 % Normal 36.0-48.0 Comment on above: Performed By: #### P T #### [facility] [address] [place] [address] Dr. Mirian Velasco Hemoglobin (Bld) [Mass/Vol] 13.5 g/dL Normal 12.0-16.0 Comment on above: Performed By: #### P T #### [facility] [address] [place] [address] Dr. Mirian Velasco IG # 0.06 10e3/ul Critically high 0.00-0.03 [facility] Comment on above: Performed By: #### P T #### [facility] [address] [place] [address] Dr. Mirian Velasco IG % 0.4 % Normal 0.0-0.5 Comment on above: Performed By: #### P T #### [facility] [address] [place] [address] Dr. Mirian Velasco LYMPH # 2.5 103/ul Normal 1.2-3.8 Comment on above: Performed By: #### P T #### [facility] [address] [place] [address] Dr. Mirian Velasco Lymphocytes/100 WBC (Bld) 17.5 % Critically low 20.5-60.0 Comment on above: Performed By: #### P T #### [facility] [address] [address] [address] Mirian Velasco MANUAL DIFF REQ NO Normal [facility] Comment on above: Performed By: #### P T #### [facility] [address] [place] [address] Dr. Mirian Velasco MCH (RBC) [Entitic mass] 28.1 pg Normal 26.7-34.0 Comment on above: Performed By: #### P T #### [facility] [address] [place] [address] Dr. Mirian Velasco MCHC (RBC) [Mass/Vol] 32.9 g/dL Normal 29.9-35.2 Comment on above: Performed By: #### P T #### [facility] [address] [place] [address] Dr. Mirian Velasco MCV (RBC) [Entitic vol] 85.2 fL Normal 81.0-99.0 Comment on above: Performed By: #### P T #### [facility] [address] [place] [address] Dr. Mirian Velasco MONO # 0.7 103/ul Normal 0.3-0.8 Comment on above: Performed By: #### P T #### [facility] [address] [place] [address] Dr. Mirian Velasco Monocytes/100 WBC (Bld) 4.5 % Normal 1.7-12.0 Comment on above: Performed By: #### P T #### [facility] [address] [address] [address] Mirian Velasco NEUT # 11.0 103/ul Critically high 1.4-6.5 [facility] Comment on above: Performed By: #### P T #### [facility] [address] [place] [address] Dr. Mirian Velasco Neutrophils/100 WBC (Bld) 76.8 % Critically high 43.0-75.0 Comment on above: Performed By: #### P T #### [facility] [address] [address] [address] Mirian Velasco Platelet mean volume (Bld) [Entitic vol] 8.7 fL Critically low 9.5-13.5 Comment on above: Performed By: #### P T #### [facility] [address] [address] [address] Mirian Velasco PLT 390 103/ul Normal 150-450 [facility] Comment on above: Performed By: #### P T #### [facility] [address] [address] [address] Mirian Velasco RBC 4.81 106/ul Normal 4.20-5.40 Comment on above: Performed By: #### P T #### [facility] [address] [address] [address] Mirian Velasco WBC 14.3 103/ul Critically high 4.0-11.0 [facility] Comment on above: Performed By: #### P T #### [facility] [address] [place] [address] ABD/PELV W CONon [...] SALMA AMEZQUITA Date: 2022-10-20 12:35 Normal [facility] CULTURE BLOODon 10-20-2022 Microscopic examination of blood, culture Culture Observations: NO GROWTH AT 5 DAYS. Normal Comment on above: Performed By: #### B [id number] ####[facility] [id number] [address] Mirian Velasco Performed By: #### B LDCX1 #### [facility] [address] [place] [address] Dr. 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 NO POTENTIAL PATHOGENS SEEN. Normal Comment on above: Performed By: #### U RCX #### [facility] [address] [place] [address] Dr. Mirian Velasco ER URINE PROFILEon 2 Bilirubin Ql (U) Negative Normal NEGATIVE [facility] Comment on above: Performed By: #### P T #### [facility] [address] [place] [address] Dr. Mirian Velasco Clarity (U) CLEAR Normal CLEAR Comment on above: Performed By: #### P T #### [facility] [address] [place] [address] Dr. Mirian Velasco Color (U) LT. YELLOW Normal YELLOW Comment on above: Performed By: #### P T #### [facility] [address] [place] [address] Dr. Mirian Velasco ERUAHD A micrscopic examination will be performed if indicated. Normal [facility] Comment on above: Performed By: #### P T #### [facility] [address] [place] [address] Dr. Mirian Velasco Glucose Ql (U) Negative Normal NEGATIVE [facility] Comment on above: Performed By: #### P T #### [facility] [address] [address] [address] Mirian Velasco Hemoglobin Ql (U) Negative Normal NEGATIVE [facility] Comment on above: Performed By: #### P T #### [facility] [address] [place] [address] Dr. Mirian Velasco Ketones Ql (U) Negative Normal NEGATIVE [facility] Comment on above: Performed By: #### P T #### [facility] [address] [place] [address] Dr. Mirian Velasco LEUKOCYTES SMALL Abnormal NEGATIVE Comment on above: Performed By: #### P T #### [facility] [address] [place] [address] Dr. Mirian Velasco Nitrite Ql (U) Negative Normal NEGATIVE [facility] Comment on above: Performed By: #### P T #### [facility] [address] [place] [address] Dr. Mirian Vleasco pH (U) 7.0 [pH] Normal 5-9 Comment on above: Performed By: #### P T #### [facility] [address] [place] [address] Dr. Mirian Velasco SPEC GRAVITY 1.015 Normal 1.005-<=1.025 [facility] Comment on above: Performed By: #### P T #### [facility] [address] [address] [address] Mirian Velasco UA PROTEIN Negative Normal NEGATIVE/ TRACE [facility] Comment on above: Performed By: #### P T #### [facility] [address] [place] [address] Dr. Mirian Velasco UR MICRO IND INDICATED Normal [facility] Comment on above: Performed By: #### P T #### [facility] [address] [place] [address] Dr. Mirian Velasco Urobilinogen Qn (U) 0.2 {Lyubov'U}/dL Normal 0.2 - 1. 0 Comment on above: Performed By: #### P T #### [facility] [address] [place] [address] Dr. Mirian Velasco LACTATE/LACTIC ACIDon 2021 Lactate [Moles/Vol] 1.3 mmol/L Normal 0.4-1.9 [facility] Comment on above: Performed By: #### L ACT #### [facility] [address] [place] [address] Dr. Mirian Velasco LIPASEon 10-20-2022 Lipase [Catalytic activity/Vol] 49.0 U/L Critically low 73.0-393.0 Comment on above: Performed By: #### P T #### [facility] [address] [place] [address] Dr. Mirian Velasco PROF 14(COMP METB)on 022 Albumin [Mass/Vol] 3.2 g/dL Critically low 3.4-5.0 [facility] Comment on above: Performed By: #### P T #### [facility] [address] [place] [address] Dr. Mirian Velasco Albumin/Globulin [Mass ratio] 0.9 {ratio} Normal Comment on above: Performed By: #### P T #### [facility] [address] [place] [address] Dr. Mirian Velasco ALP [Catalytic activity/Vol] 129 U/L Critically high 46-116 Comment on above: Performed By: #### P T #### [facility] [address] [place] [address] Dr. Mirian Velasco ALT [Catalytic activity/Vol] 25 U/L Normal 14-59 Comment on above: Performed By: #### P T #### [facility] [address] [place] [address] Dr. Mirian Velasco Anion gap [Moles/Vol] 10.7 mmol/L Normal Th e [facility] Comment on above: Performed By: #### P T #### [facility] [address] [place] [address] Dr. Mirian Velasco AST [Catalytic activity/Vol] 20 U/L Normal 15-37 Comment on above: Performed By: #### P T #### [facility] [address] [address] [address] Mirian Velasco Bilirubin [Mass/Vol] 0.5 mg/dL Normal 0.2-1.0 Comment on above: Performed By: #### P T #### [facility] [address] [place] [address] Dr. Mirian Velasco Calcium [Mass/Vol] 9.2 mg/dL Normal 8.5-10.1 [facility] Comment on above: Performed By: #### P T #### [facility] [address] [place] [address] Dr. Mirian Velasco Chloride [Moles/Vol] 102 mmol/L Normal 98-107 Comment on above: Performed By: #### P T #### [facility] [address] [place] [address] Dr. Mirian Velasco CO2 [Moles/Vol] 30.0 mmol/L Normal 21.0-32.0 [facility] Comment on above: Performed By: #### P T #### [facility] [address] [place] [address] Dr. Mirian Velasco Creatinine [Mass/Vol] 0.68 mg/dL Normal 0.55-1.02 Comment on above: Performed By: #### P T #### [facility] [address] [address] [address] Mirian Velasco EGFR-AF TAIWANESE >60 Normal >=60 [facility] Comment on above: Performed By: #### P T #### [facility] [address] [place] [address] Dr. Mirian Velasco EGFR-NON AF TAIWANESE >60 Normal >=60 Comment on above: Performed By: #### P T #### [facility] [address] [address] [address] Mirian Velasco Globulin (S) [Mass/Vol] 3.7 g/dL Normal Comment on above: Performed By: #### P T #### [facility] [facility] [address] [address] [address] Mirian Velasco Glucose [Mass/Vol] 109 mg/dL Critically high 74-106 [facility] Comment on above: Performed By: #### P T #### [facility] [address] [place] [address] Dr. Mirian Velasco Potassium [Moles/Vol] 3.7 mmol/L Normal 3.5-5.1 Comment on above: Performed By: #### P T #### [facility] [address] [place] [address] Dr. Mirian Velasco Protein [Mass/Vol] 6.9 g/dL Normal 6.4-8.2 [facility] Comment on above: Performed By: #### P T #### [facility] [address] [place] [address] Dr. Mirian Velasco Sodium [Moles/Vol] 139 mmol/L Normal 136-145 [facility] Comment on above: Performed By: #### P T #### [facility] [address] [place] [address] Dr. Mirian Velasco Urea nitrogen [Mass/Vol] 13.0 mg/dL Normal 7.0-18.0 Comment on above: Performed By: #### P T #### [facility] [address] [place] [address] Dr. Mirian Velasco Urea nitrogen/Creatinine [Mass ratio] 19.1 mg/mg Normal Comment on above: Performed By: #### P T #### [facility] [address] [place] [address] Dr. Mirian Velasco URINE MICROSCOPIC ONLYon BACTERIA TRACE Abnormal NONE SEEN The [facility] Comment on above: Performed By: #### P T #### [facility] [address] [place] [address] Dr. Mirian Velasco Bacteria identified Cx Nom (U) INDICATED Normal The [facility] Comment on above: Performed By: #### P T #### [facility] [address] [place] [address] Dr. Mirian Velasco CAST NONE SEEN Normal NONE SEEN The [facility] Comment on above: Performed By: #### P T #### [facility] [address] [place] [address] Dr. Mirian Velasco Crystals LM Nom (Urine sed) NONE SEEN Normal NONE SEEN The [facility] Comment on above: Performed By: #### P T #### [facility] [address] [place] [address] Dr. Mirian Velasco Epithelial cells LM Ql (Urine sed) MODERATE Abnormal NONE SEEN /RARE The [facility] Comment on above: Performed By: #### P T #### [facility] [address] [place] [address] Dr. Mirian Velasco MUCOUS NONE SEEN Normal NONE SEEN The [facility] Comment on above: Performed By: #### P T #### [facility] [address] [place] [address] Dr. Mirian Velasco RBC NONE SEEN Abnormal 0-2 The [facility] Comment on above: Performed By: #### P T #### [facility] [address] [place] [address] Dr. Mirian Velasco WBC 2-5 Abnormal NONE SEEN The [facility] Comment on above: Performed By: #### P T #### [facility] [address] [place] [address] Dr. Mirian Velasco YEAST PRESENT Abnormal NONE SEEN The [facility] Comment on above: Result Comment: RARE BUDDING YEAST Performed By: #### P T #### [facility] [address] [place] [address] Dr. Mirian Velasco POINT OF CARE GLUCOSEon 10-06 Glucose [Mass/Vol] 113 mg/dL Critically high 74-106 T [facility] Comment on above: Performed By: #### P OCGLUC ####[facility] [id number] [address]Dr. Mirian Velasco Glucose [Mass/Vol] 131 mg/dL Critically high 74-106 T he [facility] Comment on above: Performed By: #### P OCGLUC ####[facility] [id number] [place], [place] [address]BcDr. Mirian Velasco XR FOOT RT 2Von 10-17-2022 [...] NICKI DACOSTA Date: 2022-10-17 18:04 Normal The [facility] Covid-19 PCR (CVDTB)on SARS-CoV-2 (COVID-19) RNA JOSÉ MIGUEL+probe Ql (Unsp spec) Not detected Normal NOT DETECTED The [facility] Comment on above: Result Comment: This test is not yet approved or cleared by the [place] FDA. When there are no FDA-approved or cleared tests available, and other criteria are met, FDA can make tests available under an emergency access mechanism called an Emergency Use Authorization (EUA). The EUA for this test is supported by the [employer] of Health and Human Service's (HHS's) declaration [...] SARS-CoV-2. Performed By: #### C VDTBH #### [facility] [address], [place] [address] Dr. Mirian Velasco Diagnostic Mammogram, Unilat eral Left w/Russel (3D)on 11-23-2022 Diagnostic Mammogram, Unilateral Left w/Russel (3D) CLINICAL [...] VERY IMPORTANT TO YOUR HEALTH. THE CURRENT [place] [employer] OF [employer] AND NATIONAL COMPREHENSIVE CANCER NETWORK GUIDELINES RECOMMENDS ANNUAL MAMMOGRAPHY BEGINNING AT AGE 42 THIS FACILITY USES A REMINDER SYSTEM TO ENSURE ALL PATIENTS RECEIVE REMINDER NOTIFICATIONS AT THE APPROPRIATE TIME BASED ON THE RECOMMENDATIONS OF THIS EXAM. Board Certified Radiologist. Accredited by the ACR and FDA. Report reported and signed by Dawna Lizarraga on 09/28/2022 1307 Normal [facility] CBC AUTO DIFFon 09-26-2022 BASO # 0.1 103/ul Normal 0.0-0.1 Comment on above: Performed By: #### L ACT #### [facility] [address] [address] [address] Mirian Velasco Basophils/100 WBC (Bld) 0.8 % Normal 0.2-2.0 Comment on above: Performed By: #### L ACT #### [facility] [address] [address] [address] Mirian Velasco EO # 0.1 103/ul Normal 0.0-0.7 The [facility] Comment on above: Performed By: #### L ACT #### [facility] [address] [address] [address] Mirian Velasco Eosinophils/100 WBC (Bld) 1.5 % Normal 0.9-7.0 The [facility] Comment on above: Performed By: #### L ACT #### [facility] [address] [place] [address] Dr. Mirian Velasco Erythrocyte distribution width (RBC) [Ratio] 13.4 % Normal 11.0-15.0 Comment on above: Performed By: #### L ACT #### [facility] [address] [address] [address] Mirian Velasco Hematocrit (Bld) [Volume fraction] 41.3 % Normal 36.0-48.0 Comment on above: Performed By: #### L ACT #### [facility] [address] [address] [address] Mirian Velasco Hemoglobin (Bld) [Mass/Vol] 13.4 g/dL Normal 12.0-16.0 Comment on above: Performed By: #### L ACT #### [facility] [address] [place] [address] Dr. Mirian Velasco IG # 0.04 10e3/ul Critically high 0.00-0.03 [facility] Comment on above: Performed By: #### L ACT #### [facility] [address] [place] [address] Dr. Mirian Velasco IG % 0.5 % Normal 0.0-0.5 Comment on above: Performed By: #### L ACT #### [facility] [address] [place] [address] Dr. Mirian Velasco LYMPH # 2.5 103/ul Normal 1.2-3.8 Comment on above: Performed By: #### L ACT #### [facility] [address] [place] [address] Dr. Mirian Velasco Lymphocytes/100 WBC (Bld) 27.7 % Normal 20.5-60.0 Comment on above: Performed By: #### L ACT #### [facility] [address] [place] [address] Dr. Mirian Velasco MANUAL DIFF REQ NO Normal [facility] Comment on above: Performed By: #### L ACT #### [facility] [address] [place] [address] Dr. Mirian Velasco MCH (RBC) [Entitic mass] 27.6 pg Normal 26.7-34.0 Comment on above: Performed By: #### L ACT #### [facility] [address] [address] [address] Mirian Velasco MCHC (RBC) [Mass/Vol] 32.4 g/dL Normal 29.9-35.2 The [facility] Comment on above: Performed By: #### L ACT #### [facility] [address] [place] [address] Dr. Mirian Vealsco MCV (RBC) [Entitic vol] 85.0 fL Normal 81.0-99.0 The [facility] Comment on above: Performed By: #### L ACT #### [facility] [address] [place] [address] Dr. Mirian Velasco MONO # 0.6 103/ul Normal 0.3-0.8 The [facility] Comment on above: Performed By: #### L ACT #### [facility] [address] [place] [address] Dr. Mirian Velasco Monocytes/100 WBC (Bld) 6.9 % Normal 1.7-12.0 The [facility] Comment on above: Performed By: #### L ACT #### [facility] [address] [place] [address] Dr. Mirian Velasco NEUT # 5.6 103/ul Normal 1.4-6.5 Comment on above: Performed By: #### L ACT #### [facility] [address] [place] [address] Dr. Mirian Velasco Neutrophils/100 WBC (Bld) 62.6 % Normal 43.0-75.0 The [facility] Comment on above: Performed By: #### L ACT #### [facility] [address] [place] [address] Dr. Mirian Velasco Platelet mean volume (Bld) [Entitic vol] 8.6 fL Critically low 9.5-13.5 The [facility] Comment on above: Performed By: #### L ACT #### [facility] [address] [place] [address] Dr. Mirian Velasco PLT 372 103/ul Normal 150-450 The [facility] Comment on above: Performed By: #### L ACT #### [facility] [address] [place] [address] Dr. Mirian Velasco RBC 4.86 106/ul Normal 4.20-5.40 Comment on above: Performed By: #### L ACT #### [facility] [address] [place] [address] Dr. Mirian Velasco WBC 8.9 103/ul Normal 4.0-11.0 Comment on above: Performed By: #### L ACT #### [facility] [address] [place] [address] Dr. Mirian Velasco PROF CHEM 8 (BAS METB)on Anion gap [Moles/Vol] 8.0 mmol/L Normal Comment on above: Performed By: #### P T #### [facility] [address] [place] [address] Dr. Mirian Velasco Calcium [Mass/Vol] 9.0 mg/dL Normal 8.5-10.1 [facility] Comment on above: Performed By: #### P T #### [facility] [address] [place] [address] Dr. Mirian Velasco Chloride [Moles/Vol] 106 mmol/L Normal 98-107 Comment on above: Performed By: #### P T #### [facility] [address] [place] [address] Dr. Mirian Velasco CO2 [Moles/Vol] 30.3 mmol/L Normal 21.0-32.0 [facility] Comment on above: Performed By: #### P T #### [facility] [address] [place] [address] Dr. Mirian Velasco Creatinine [Mass/Vol] 0.71 mg/dL Normal 0.55-1.02 The [facility] Comment on above: Performed By: #### P T #### [facility] [address] [place] [address] Dr. Mirian Velasco EGFR-AF [place] >60 Normal >=60 The [facility] Comment on above: Performed By: #### P T #### [facility] [address] [place] [address] Dr. Mirian Velasco EGFR-NON AF [place] >60 Normal >=60 Comment on above: Performed By: #### P T #### [facility] [address] [address] [address] Mirian Velasco Glucose [Mass/Vol] 81 mg/dL Normal 74-106 [facility] Comment on above: Performed By: #### P T #### [facility] [address] [address] [address] Mirian Velasco Potassium [Moles/Vol] 4.3 mmol/L Normal 3.5-5.1 Comment on above: Performed By: #### P T #### [facility] [address] [address] [address] Mirian Velasco Sodium [Moles/Vol] 140 mmol/L Normal 136-145 [facility] Comment on above: Performed By: #### P T #### [facility] [address] [address] [address] Mirian Velasco Urea nitrogen [Mass/Vol] 16.0 mg/dL Normal 7.0-18.0 Comment on above: Performed By: #### P T #### [facility] [address] [address] [address] Mirian Velasco Urea nitrogen/Creatinine [Mass ratio] 22.5 mg/mg Normal Comment on above: Performed By: #### P T #### [facility] [address] [address] [address] Mirian Velasco C reactive protein [Mass/vol ume] in Serum or PlasmaOrdered By: Beto Snyder on 09-22-2022 CRP [Mass/Vol] 0.6 mg/dL 0.0-1.0 [facility] C-Reactive Proteinon 022 C-Reactive Protein 0.6 mg/dL Normal 0.0-1.0 mg/dL [facility] [employer] Other Erythrocyte Sedimentation Ra lian 09-22-2022 ESR (Bld) [Velocity] 4 mm/h Normal 0-29 [facility] [employer] Other Erythrocyte sedimentation ra te by Photometric methodOrdered By: Beto Snyder on 09-22-2022 ESR Photometric method (Bld) [Velocity] 4 mm/hr 0-29 [facility] Serum nuclear antibody titer Ordered By: Beto Snyder on 09-22-2022 Nuclear Ab (S) [Titer] Negative . [facility] Comment on above: Negative <1:80 Borde rline 1:80 Positive >1:80ICAP nomenclature: AC-0For more information about Hep-2 cell patterns useANApatterns.org, the official website for theInternational Consensus on Antinuclear Antibody (CHUYITA)Patterns (ICAP).Performed at: [facility] [address] [id number] Director: Erick Neville PhD, Phone: [phone] Serum or plasma rheumatoid f actor measurement (units/volume)Ordered By: Beto Snyder on 09-22-2022 Rheumatoid factor Qn [IU]/mL <14.0 [facility] Comment on above: Performed at: [facility] [address] [id number] Director: Erick Neville PhD, Phone: [phone] Serum or plasma thyroxine (T 4) measurement (mass/volume)Ordered By: Beto Snyder on 09-22-2022 T4 [Mass/Vol] 9.82 ug/dL 5.39-11.82 [facility] Serum or plasma uric acid me asurement (mass/volume)Ordered By: Beto Snyder on 09-22-2022 Urate [Mass/Vol] 4.2 mg/dL 2.6-7.2 [facility] TSH DL <= 0.005 mIU/L QnOrde red By: Beto Snyder on 09-22-2022 TSH Qn 1.98 m[IU]/L 0.45-5.33 [facility] Thyroid Stimulating Hormoneo n 09-22-2022 TSH Qn 1.55369642216 m[IU]/L Normal 0.45-5 .33 u[iU]/mL [facility] Other Thyroxine (T4) Totalon 09-22 Thyroxine (T4) Total 9.82 ug/dL Normal 5.39-11 .82 ug/dL [facility] Other Uric Acidon 09-22-2022 Urate [Mass/Vol] 4.6393899 mg/dL Normal 2.6-7.2 mg/dL [facility] Other XR knee BI 2Von 09-22-2022 XR knee BI 2V [facility] [employer] Other XR knee BI 2V [facility] [employer] Other XR knee BI 2V [address] [place] [address] [employer] Other XR knee BI 2V [address] [employer] Other XR knee BI 2V [facility] Other XR knee BI 2V Signed [facility] Other XR knee BI 2V Patient: Darrian Leal jonathan Keys MR#: [id number] [facility] Other XR knee BI 2V 863 [facility] Other XR knee BI 2V : 1970 Acct:[id number] [facility] Other XR knee BI 2V Age/Sex: 52 / F ADM Date: 09/22/22 [facility] Other XR knee BI 2V Loc: SOXD Room: Type : REG CLI [facility] Other XR knee BI 2V Attending Dr: Beto Snyder MD [facility] Other XR knee BI 2V Copies to: Beto Snyder MD [facility] Other XR knee BI 2V Ordering Provider: Beto Snyder MD [facility] Other XR knee BI 2V Date of Service: 09/22/22 [facility] Other XR knee BI 2V XR/XR knee BI 2V: Knee pain [facility] Other XR knee BI 2V XR knee BI 2V 09/22/2022 9:23 AM [facility] Other XR knee BI 2V SIGNS AND SYMPTOMS: Bilateral knee pain right greater than left [facility] Other XR knee BI 2V PROTOCOL: Frontal an d lateral radiographs of the bilateral knees [facility] Other XR knee BI 2V COMPARISON: None [facility] Other XR knee BI 2V FINDINGS: [facility] Other XR knee BI 2V There is evidence of prior ACL repair in the left knee with mild narrowing of the weightbearing [facility] Other XR knee BI 2V joint spaces on the left. The joint spaces are otherwise preserved. There is no fracture or [facility] Other XR knee BI 2V dislocation. No join t effusion or soft tissue swelling. [facility] Other XR knee BI 2V XR/XR knee BI 2V [facility] Other XR knee BI 2V IMPRESSION: [employer] Other XR knee BI 2V Status post ACL repa ir on the left. [facility] Other XR knee BI 2V Mild degenerative changes are noted in the weightbearing joint spaces of the left. [facility] Other XR knee BI 2V No acute bony injury. [facility] Other XR knee BI 2V Impression dictated by: Rajiv Garcia M.D.09/22/2022 2:17 PM [facility] Other XR knee BI 2V Dictation Location: [address] [place] [address] [facility] Other XR knee BI 2V Transcribed By: MARIO 09/22/22 1417 [facility] Other XR knee BI 2V Dictated By: Rajiv Garcia II, MD 09/22/22 1415 [facility] Other XR knee BI 2V Signed By: [facility] Other XR knee BI 2V 09/22/22 1417 [employer] Other XR shoulder BI min 2Von 09-06 XR shoulder BI min 2V XR/XR shoulder BI min 2V: Shoulder pain [facility] Other XR shoulder BI min 2V XR shoulder BI min 2V 09/22/2022 9:23 AM [facility] Other XR shoulder BI min 2V SIGNS AND SYMPTOMS : Bilateral shoulder pain with limited range of motion [facility] Other XR shoulder BI min 2V PROTOCOL: Frontal, Grashey, scapular Y, and axillary views of the bilateral shoulders [facility] Other XR shoulder BI min 2V COMPARISON: 02/26/2018 [facility] Other XR shoulder BI min 2V There has been bon y resorption of the lateral margin of the clavicle on the right suggesting [facility] Other XR shoulder BI min 2V osteomyelitis is w hich may be degenerative or traumatic. Mild hypertrophy of the AC joint is noted. [facility] Other XR shoulder BI min 2V The glenohumeral j oint is preserved on the right. There is subcortical sclerosis greater tuberosity [facility] Other XR shoulder BI min 2V of the right suggesting underlying rotator cuff abnormalities. This is new when compared to the [facility] Other XR shoulder BI min 2V prior exam. The visualized right hemithorax is grossly intact. [facility] Other XR shoulder BI min 2V There is mild hypertrophy of the left acromioclavicular joint. There is mild subcortical sclerosis [facility] Other XR shoulder BI min 2V of the greater tuberosity in the left suggesting underlying rotator cuff abnormalities. The [facility] Other XR shoulder BI min 2V glenohumeral joint is preserved. There is no fracture or dislocation. Visualized left hemithorax is [facility] Other XR shoulder BI min 2V grossly intact. [facility] Other XR shoulder BI min 2V There is partial visualization of intervertebral disc arthroplasty is noted within the lower [facility] Other XR shoulder BI min 2V cervical spine. 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 [facility] Other XR shoulder BI min 2V Rudimentary ribs a re noted at C7, right greater than left [facility] Other XR shoulder BI min 2V Impression dictate d by: Rajiv Garcia M.D.09/22/2022 2:20 PM [facility] Other XR shoulder BI min 2V Transcribed By: KT Thorpe 09/22/22 [facility] Other XR shoulder BI min 2V Dictated By: Rajiv Garcia II, MD 09/22/22 1417 [facility] Other XR shoulder BI min 2V 09/22/22 6508 [facility] Other SCREENING MAMMOGRAM W/RUSSEL, BILATERAL*on 09-14-2022 SCREENING [...] IS VERY IMPORTANT TO YOUR HEALTH. CURRENT [place] [employer] AND N[employer] COMPREHENSIVE CANCER NETWORK GUIDELINES RECOMMENDS ANNUAL MAMMOGRAPHY BEGINNING AT AGE 42. THIS FACILITY USUALLY USES A REMINDER SYSTEM TO ENSURE ALL POSITIONS RECEIVED REMINDER NOTIFICATIONS AT THE TIME BASED ON THE RECOMMENDATIONS OF THIS EXAM. Report reported and signed by Zaida Diaz on 09/16/2022 1334 Normal [facility] Diplomatic Officer Tobacco Screening.on 022 Adult depression screening assessment No [facility] [address] DO Work Phone: Tobacco use status [facility] b) No [facility] [address] DO Work Phone: COVID Quick Testingon 2021 Result Negative [facility] Other AMYLASEon 04-17-2022 Amylase [Catalytic activity/Vol] 38 U/L Normal 25-115 Comment on above: Performed By: #### P T #### [facility] [address] [place] [address] Dr. Mirian Velasco CBC AUTO DIFFon 04-17-2022 BASO # 0.1 103/ul Normal 0.0-0.1 Comment on above: Performed By: #### L ACT #### [facility] [address] [place] [address] Dr. Mirian Velasco Basophils/100 WBC (Bld) 1.0 % Normal 0.2-2.0 Comment on above: Performed By: #### L ACT #### [facility] [address] [place] [address] Dr. Mirian Velasco EO # 0.2 103/ul Normal 0.0-0.7 The [facility] Comment on above: Performed By: #### L ACT #### [facility] [address] [place] [address] Dr. Mirian Velasco Eosinophils/100 WBC (Bld) 3.3 % Normal 0.9-7.0 Comment on above: Performed By: #### L ACT #### [facility] [address] [place] [address] Dr. Mirian Velasco Erythrocyte distribution width (RBC) [Ratio] 12.0 % Normal 11.0-15.0 Comment on above: Performed By: #### L ACT #### [facility] [address] [place] [address] Dr. Mirian Velasco Hematocrit (Bld) [Volume fraction] 37.3 % Normal 36.0-48.0 Comment on above: Performed By: #### L ACT #### [facility] [address] [place] [address] Dr. Mirian Velasco Hemoglobin (Bld) [Mass/Vol] 12.1 g/dL Normal 12.0-16.0 Comment on above: Performed By: #### L ACT #### [facility] [address] [place] [address] Dr. Mirian Velasco IG # 0.03 10e3/ul Normal 0.00-0.03 The [facility] Comment on above: Performed By: #### L ACT #### [facility] [address] [place] [address] Dr. Mirian Velasco IG % 0.4 % Normal 0.0-0.5 The [facility] Comment on above: Performed By: #### L ACT #### [facility] [address] [place] [address] Dr. Mirian Velasco LYMPH # 1.8 103/ul Normal 1.2-3.8 Comment on above: Performed By: #### L ACT #### [facility] [address] [place] [address] Dr. Mirian Velasco Lymphocytes/100 WBC (Bld) 25.2 % Normal 20.5-60.0 Comment on above: Performed By: #### L ACT #### [facility] [address] [place] [address] Dr. Mirian Velasco MANUAL DIFF REQ NO Normal [place] [facility] [facility] Comment on above: Performed By: #### L ACT #### [facility] [address] [place] [address] Dr. Mirian Velasco MCH (RBC) [Entitic mass] 29.0 pg Normal 26.7-34.0 Comment on above: Performed By: #### L ACT #### [facility] [address] [place] [address] Dr. Mirian Velasco MCHC (RBC) [Mass/Vol] 32.4 g/dL Normal 29.9-35.2 [facility] Comment on above: Performed By: #### L ACT #### [facility] [address] [place] [address] Dr. Mirian Velasco MCV (RBC) [Entitic vol] 89.4 fL Normal 81.0-99.0 Comment on above: Performed By: #### L ACT #### [facility] [address] [place] [address] Dr. Mirian Velasco MONO # 0.4 103/ul Normal 0.3-0.8 [facility] Comment on above: Performed By: #### L ACT #### [facility] [address] [place] [address] Dr. Mirian Velasco Monocytes/100 WBC (Bld) 5.8 % Normal 1.7-12.0 Comment on above: Performed By: #### L ACT #### [facility] [address] [place] [address] Dr. Mirian Velasco NEUT # 4.6 103/ul Normal 1.4-6.5 Comment on above: Performed By: #### L ACT #### [facility] [address] [address] [address] Mirian Velasco Neutrophils/100 WBC (Bld) 64.3 % Normal 43.0-75.0 Comment on above: Performed By: #### L ACT #### [facility] [address] [id number] [address] Mirian Velasco Platelet mean volume (Bld) [Entitic vol] 8.6 fL Critically low 9.5-13.5 Comment on above: Performed By: #### L ACT #### [facility] [address] [place] [address] Dr. Mirian Velasco PLT 597 103/ul Critically high 150-450 [facility] Comment on above: Performed By: #### L ACT #### [facility] [address] [place] [address] Dr. Mirian Velasco RBC 4.17 106/ul Critically low 4.20-5.40 [facility] Comment on above: Performed By: #### L ACT #### [facility] [address] [place] [address] Dr. Mirian Velasco WBC 7.2 103/ul Normal 4.0-11.0 Comment on above: Performed By: #### L ACT #### [facility] [address] [place] [address] ABD/PELVIS WO CONon [...] LORRI TRIPLETT Date: 2022-04-17 11:19 Normal [facility] ER URINE PROFILEon 2 Bilirubin Ql (U) Negative Normal NEGATIVE [facility] Comment on above: Performed By: #### P T #### [facility] [address] [place] [address] Dr. Mirian Velasco Clarity (U) CLEAR Normal CLEAR Comment on above: Performed By: #### P T #### [facility] [address] [address] [address] Mirian Velasco Color (U) YELLOW Normal YELLOW Comment on above: Performed By: #### P T #### [facility] [address] [address] [address] Mirian KING A micrscopic examination will be performed if indicated. Normal [facility] Comment on above: Performed By: #### P T #### [facility] [address] [address] [address] Mirian Velasco Glucose Ql (U) Negative Normal NEGATIVE [facility] Comment on above: Performed By: #### P T #### [facility] [address] [place] [address] Dr. Mirian Velasco Hemoglobin Ql (U) Negative Normal NEGATIVE [facility] Comment on above: Performed By: #### P T #### [facility] [address] [place] [address] Dr. Mirian Velasco Ketones Ql (U) Negative Normal NEGATIVE [facility] Comment on above: Performed By: #### P T #### [facility] [address] [place] [address] Dr. Mirian Velasco LEUKOCYTES Negative Normal NEGATIVE Comment on above: Performed By: #### P T #### [facility] [address] [place] [address] Dr. Mirian Velasco Nitrite Ql (U) Negative Normal NEGATIVE [facility] Comment on above: Performed By: #### P T #### [facility] [address] [place] [address] Dr. Mirian Velasco pH (U) 5.5 [pH] Normal 5-9 Comment on above: Performed By: #### P T #### [facility] [address] [place] [address] Dr. Mirian Velasco SPEC GRAVITY >=1.030 Abnormal 1.005-<=1.025 [facility] Comment on above: Performed By: #### P T #### [facility] [address] [place] [address] Dr. Mirian Velasco UA PROTEIN Negative Normal NEGATIVE/ TRACE [facility] Comment on above: Performed By: #### P T #### [facility] [address] [place] [address] Dr. Mirian Velasco UR MICRO IND NOT INDICATED Normal [facility] Comment on above: Performed By: #### P T #### [facility] [address] [place] [address] Dr. Mirian Velasco Urobilinogen Qn (U) 0.2 {Lyubov'U}/dL Normal 0.2 - 1. 0 Comment on above: Performed By: #### P T #### [facility] [address] [place] [address] Dr. Mirian Velasco LIPASEon 04-17-2022 Lipase [Catalytic activity/Vol] 117.0 U/L Normal 73.0-393.0 Comment on above: Performed By: #### P T #### [facility] [address] [place] [address] Dr. Mirian Velasco PROF 14(COMP METB)on 022 Albumin [Mass/Vol] 3.5 g/dL Normal 3.4-5.0 [facility] Comment on above: Performed By: #### P T #### [facility] [address] [place] [address] Dr. Mirian Velasco Albumin/Globulin [Mass ratio] 0.9 {ratio} Normal Comment on above: Performed By: #### P T #### [facility] [address] [place] [address] Dr. Mirian Velasco ALP [Catalytic activity/Vol] 237 U/L Critically high 46-116 Comment on above: Performed By: #### P T #### [facility] [address] [place] [address] Dr. Mirian Velasco ALT [Catalytic activity/Vol] 53 U/L Normal 14-59 Comment on above: Performed By: #### P T #### [facility] [address] [place] [address] Dr. Mirian Velasco Anion gap [Moles/Vol] 11.0 mmol/L Normal [facility] Comment on above: Performed By: #### P T #### [facility] [address] [place] [address] Dr. Mirian Velasco AST [Catalytic activity/Vol] 45 U/L Critically high 15-37 Comment on above: Performed By: #### P T #### [facility] [address] [place] [address] Dr. Mirian Velasco Bilirubin [Mass/Vol] 0.2 mg/dL Normal 0.2-1.0 Comment on above: Performed By: #### P T #### [facility] [address] [address] [address] Mirian Velasco Calcium [Mass/Vol] 9.3 mg/dL Normal 8.5-10.1 [facility] Comment on above: Performed By: #### P T #### [facility] [address] [address] [address] Mirian Velasco Chloride [Moles/Vol] 105 mmol/L Normal 98-107 Comment on above: Performed By: #### P T #### [facility] [address] [address] [address] Mirian Velasco CO2 [Moles/Vol] 29.5 mmol/L Normal 21.0-32.0 [facility] Comment on above: Performed By: #### P T #### [facility] [address] [address] [address] Mirian Velasco Creatinine [Mass/Vol] 0.69 mg/dL Normal 0.55-1.02 Comment on above: Performed By: #### P T #### [facility] [address] [address] [address] Mirian Velasco EGFR-AF TAIWANESE >110 Normal >=60 [facility] Comment on above: Performed By: #### P T #### [facility] [address] [address] [address] Mirian Velasco EGFR-NON AF TAIWANESE >90 Normal >=60 Comment on above: Performed By: #### P T #### [facility] [address] [address] [address] Mirian Velasco Globulin (S) [Mass/Vol] 4.0 g/dL Normal Comment on above: Performed By: #### P T #### [facility] [address] [place] [address] Dr. Mirian Velasco Glucose [Mass/Vol] 107 mg/dL Critically high 74-106 [facility] Comment on above: Performed By: #### P T #### [facility] [address] [address] [address] Mirian Velasco Potassium [Moles/Vol] 4.5 mmol/L Normal 3.5-5.1 Comment on above: Performed By: #### P T #### [facility] [address] [address] [address] Mirian Velasco Protein [Mass/Vol] 7.5 g/dL Normal 6.4-8.2 [facility] Comment on above: Performed By: #### P T #### [facility] [address] [address] [address] Mirian Velasco Sodium [Moles/Vol] 141 mmol/L Normal 136-145 [facility] Comment on above: Performed By: #### P T #### [facility] [address] [address] [address] Mirian Velasco Urea nitrogen [Mass/Vol] 11.0 mg/dL Normal 7.0-18.0 Comment on above: Performed By: #### P T #### [facility] [address] [address] [address] Mirian Velasco Urea nitrogen/Creatinine [Mass ratio] 15.9 mg/mg Normal Comment on above: Performed By: #### P T #### [facility] [address] [address] [address] Mirian Velasco XR CHEST 1 Von 04-17-2022 XR CHEST 1 V EXAM: Chest x-ray HISTORY: Pain. COMPARISON: 02/20/2022 TECHNIQUE: AP portable upright view of the chest. FINDINGS: Heart and Vascularity are unremarkable. Lungs are free of focal infiltrates. No effusions are noted. Impression: No acute heart or lung disease identified. Electronically authenticated by: NICKI BUTT Date: 2022-04-17 11:03 Normal [facility] Basic metabolic 2000 panelon 04-05-2022 Anion gap [Moles/Vol] 13 mmol/L Normal 9-18 [facility] Comment on above: Order Comment: Speci men Type: BLOOD SPECIMEN Ordering Facility: [facility] Address: [address] [place] [id number] Performed By: #### 5 8410-2 #### [facility] CLIA [id number] [address] [place] [address] [place] Calcium [Mass/Vol] 9.0 mg/dL Normal 8.5-10.2 [facility] Comment on above: Order Comment: Speci men Type: BLOOD SPECIMEN Ordering Facility: [facility] Address: [address] [place] [address] Performed By: #### 5 8410-2 #### [facility] CLIA [id number] [address] [place] [address] [place] Chloride [Moles/Vol] 104 mmol/L Normal 97-105 [facility] Comment on above: Order Comment: Speci men Type: BLOOD SPECIMEN Ordering Facility: [facility] Address: [address] [place] [address] Performed By: #### 5 8410-2 #### [facility] CLIA [id number] [address] [place] [address] [place] CO2 [Moles/Vol] 25 mmol/L Normal 22-30 [facility] Comment on above: Order Comment: Speci men Type: BLOOD SPECIMEN Ordering Facility: [facility] Address: [address] [place] [address] Performed By: #### 5 8410-2 #### [facility] CLIA [id number] [address] [place] [address] [place] Creatinine [Mass/Vol] 0.65 mg/dL Normal 0.58-0.96 [facility] Comment on above: Order Comment: Speci men Type: BLOOD SPECIMEN Ordering Facility: [facility] Address: [address] [place] [address] Performed By: #### 5 8410-2 #### [facility] CLIA [id number] [address] [place] [address] ESTIMATED GLOMERULAR FILTRATION RATE 108 mL/min/1.73m??? Normal >=60 [facility] Comment on above: Order Comment: Speci men Type: BLOOD SPECIMEN Ordering Facility: [facility] Address: [address] [place], [place] [id number] Result Comment: Mary mated Glomerular Filtration Rate [...] #### 5 8410-2 #### [facility] CLIA [id number] [place] [address] [place] Glucose [Mass/Vol] 109 mg/dL High 74-99 [facility] Comment on above: Order Comment: Leanne terry Type: BLOOD SPECIMEN Ordering Facility: [facility] Address: [address] [place] [address] Result Comment: The [place] [employer] (ADA) provides guidance for cutoff [...] Standards of Medical Care in Diabetes 2016, [place] [employer]. Diabetes Care. 2016.39(Suppl 1). Performed By: #### 5 8410-2 #### [facility] CLIA [id number] [place], [place] [id number] [place] Potassium [Moles/Vol] 3.9 mmol/L Normal 3.7-5.1 [facility] Comment on above: Order Comment: Leanne terry Type: BLOOD SPECIMEN Ordering Facility: [facility] Address: [address] [phone] Performed By: #### 5 8410-2 #### [facility] CLIA [id number] [address] [id number] [place] Sodium [Moles/Vol] 142 mmol/L Normal 136-144 [facility] Comment on above: Order Comment: Speci men Type: BLOOD SPECIMEN Ordering Facility: [facility] Address: [address] [place] [address] Performed By: #### 5 8410-2 #### [facility] CLIA [id number] [address] [place] [address] STATES OF [facility] Urea nitrogen [Mass/Vol] 7 mg/dL Normal 7-21 [facility] Comment on above: Order Comment: Speci men Type: BLOOD SPECIMEN Ordering Facility: [facility] Address: [address] [place] [address] Performed By: #### 5 8410-2 #### [facility] CLIA [id number] [address] [place] [address] OF [facility] CBC W Auto Differential pane l (Bld)on 04-05-2022 Basophils (Bld) [#/Vol] 0.05 10*3/uL Normal <0.11 [facility] Comment on above: Order Comment: Speci men Type: BLOOD SPECIMENOrdering Facility: [facility] Address: [address] [place] [address] Performed By: #### B MP #### [address] [phone] Basophils/100 WBC (Bld) 0.7 % Normal [facility] Comment on above: Order Comment: Speci men Type: BLOOD SPECIMENOrdering Facility: [facility] Address: [address] [place] [address] Performed By: #### B MP #### [address] [phone] Differential cell count method Nom (Bld) Auto Normal [facility] Comment on above: Order Comment: Speci men Type: BLOOD SPECIMENOrdering Facility: [facility] Address: [address] [place] [address] Performed By: #### B MP #### [address] [phone] Eosinophils (Bld) [#/Vol] 0.55 10*3/uL High <0.46 [facility] Comment on above: Order Comment: Speci men Type: BLOOD SPECIMENOrdering Facility: [facility] Address: [address] [place] [address] Performed By: #### B MP #### [address] [phone] Eosinophils/100 WBC (Bld) 8.2 % Normal [facility] Comment on above: Order Comment: Speci men Type: BLOOD SPECIMENOrdering Facility: [facility] Address: [address] [place] [address] Performed By: #### B MP #### [address] [phone] Erythrocyte distribution width (RBC) [Ratio] 12.8 % Normal 11.5-15.0 [facility] Comment on above: Order Comment: Speci men Type: BLOOD SPECIMENOrdering Facility: [facility] Address: [address] [place] [address] Performed By: #### B MP #### [address] [phone] Hematocrit (Bld) [Volume fraction] 31.1 % Low 36.0-46.0 [facility] Comment on above: Order Comment: Speci men Type: BLOOD SPECIMENOrdering Facility: [facility] Address: [address] [place] [address] Performed By: #### B MP #### [address] [phone] Hemoglobin (Bld) [Mass/Vol] 10.5 g/dL Low 11.5-15.5 [facility] Comment on above: Order Comment: Speci men Type: BLOOD SPECIMENOrdering Facility: [facility] Address: [address] [place] [address] Performed By: #### B MP #### [address] [phone] IMMATURE GRAN % 0.4 % Normal [facility] Comment on above: Order Comment: Speci men Type: BLOOD SPECIMENOrdering Facility: [facility] Address: [address] [place] [address] Performed By: #### B MP #### [place] [id number] IMMATURE GRAN ABS 0.03 k/uL Normal <0.10 [facility] Comment on above: Order Comment: Speci men Type: BLOOD SPECIMENOrdering Facility: [facility] Address: [address] [place] [address] Performed By: #### B MP #### [phone] Lymphocytes (Bld) [#/Vol] 1.47 10*3/uL Normal 1.00-4.00 [facility] Comment on above: Order Comment: Speci men Type: BLOOD SPECIMENOrdering Facility: [facility] Address: [address] [place] [address] Performed By: #### B MP #### [address] [phone] Lymphocytes/100 WBC (Bld) 22.0 % Normal [facility] Comment on above: Order Comment: Speci men Type: BLOOD SPECIMENOrdering Facility: [facility] Address: [address] [place] [address] Performed By: #### B MP #### [address] [phone] MCH (RBC) [Entitic mass] 29.9 pg Normal 26.0-34.0 [facility] Comment on above: Order Comment: Speci men Type: BLOOD SPECIMENOrdering Facility: [facility] Address: [address] [place] [address] Performed By: #### B MP #### [address] [phone] MCHC (RBC) [Mass/Vol] 33.8 g/dL Normal 30.5-36.0 [facility] Comment on above: Order Comment: Speci men Type: BLOOD SPECIMENOrdering Facility: [facility] Address: [address] [place] [address] Performed By: #### B MP #### [phone] MCV (RBC) [Entitic vol] 88.6 fL Normal 80.0-100.0 [facility] Comment on above: Order Comment: Speci men Type: BLOOD SPECIMENOrdering Facility: [facility] Address: [address] [place] [address] Performed By: #### B MP #### [address] [phone] Monocytes (Bld) [#/Vol] 0.50 10*3/uL Normal <0.87 [facility] Comment on above: Order Comment: Speci men Type: BLOOD SPECIMENOrdering Facility: [facility] Address: [address] [place] [address] Performed By: #### B MP #### [address] [phone] Monocytes/100 WBC (Bld) 7.5 % Normal [facility] Comment on above: Order Comment: Speci men Type: BLOOD SPECIMENOrdering Facility: [facility] Address: [address] [place] [address] Performed By: #### B MP #### [address] [phone] Neutrophils (Bld) [#/Vol] 4.08 10*3/uL Normal 1.45-7.50 [facility] Comment on above: Order Comment: Speci men Type: BLOOD SPECIMENOrdering Facility: [facility] Address: [address] [place] [address] Performed By: #### B MP #### [phone] Neutrophils/100 WBC (Bld) 61.2 % Normal [facility] Comment on above: Order Comment: Speci men Type: BLOOD SPECIMENOrdering Facility: [facility] Address: [address] [place], [place] [phone] Performed By: #### B MP #### [place] [id number] Nucleated RBC (Bld) [#/Vol] 10*3/uL Normal <0.01 [facility] Comment on above: Order Comment: Speci men Type: BLOOD SPECIMENOrdering Facility: [facility] Address: [address] [place] [address] Performed By: #### B MP #### [address] [phone] Nucleated RBC/100 WBC (Bld) [Ratio] 0.0 /100 WBC Normal [facility] Comment on above: Order Comment: Speci men Type: BLOOD SPECIMENOrdering Facility: [facility] Address: [address] [place] [address] Performed By: #### B MP #### [address] [phone] Platelet mean volume (Bld) [Entitic vol] 8.9 fL Low 9.0-12.7 [facility] Comment on above: Order Comment: Speci men Type: BLOOD SPECIMENOrdering Facility: [facility] Address: [address] [place] [address] Performed By: #### B MP #### [address] [phone] Platelets (Bld) [#/Vol] 455 10*3/uL High 150-400 [facility] Comment on above: Order Comment: Speci men Type: BLOOD SPECIMENOrdering Facility: [facility] Address: [address] [place] [address] Performed By: #### B MP #### [place] [address] RBC (Bld) [#/Vol] 3.51 10*6/uL Low 3.90-5.20 [facility] Comment on above: Order Comment: Speci men Type: BLOOD SPECIMENOrdering Facility: [facility] Address: [address] [place] [address] Performed By: #### B MP #### [facility] [address] [place] [address] WBC (Bld) [#/Vol] 6.68 10*3/uL Normal 3.70-11.00 [facility] Comment on above: Order Comment: Speci men Type: BLOOD SPECIMENOrdering Facility: [facility] Address: [address] [place] [address] [place] [address] Performed By: #### B MP #### [phone] [place] [address] CNDSon 04-05-2022 CNDS HNO ID: [id number] Author: Jessi Sheets APRN.HOUSE [employer]DER Service: Colorectal Author Type: Nurse Practitioner Type: Discharge Summary Filed: 04/05/2022 11:10 AM Note Text: Attestation signed by Mary Obrien MD at 04/05/2022 12:54 PM [facility] STAFF PHYSICIAN NOTE OF [...] of the summary. CONSULTING TEAMS DURING HOSPITALIZATION: [facility] Treatment Team: Attending Provider: Mary [...] only. Pain controlled with TAPs and a LIBRARY PAGE. Remained nauseated. POD4 re-advanced to full liquids [...] by mo (more content not included)... Normal [facility] Magnesium SerPl-mCncon 04-05 Magnesium [Mass/Vol] 2.0 mg/dL Normal 1.7-2.3 [facility] Comment on above: Order Comment: Speci men Type: BLOOD SPECIMEN Ordering Facility: [facility] Address: [address] [place] [phone] Performed By: #### 5 8410-2 #### [facility] CLIA [id number] [address] [place] [address] [place] NURSING PROGon 04-05-2022 NURSING PROG HNO ID: [id number] Author: Eagle Gu RN Service: ? Author Type: Registered Nurse Type: Nursing Progress Note Filed: 04/04/2022 10:58 PM Note Text: Nursing Progress Note Patient Name: Mary Leal Patient Location: __ Daily Note:04/04/22 2140 Pt is alert and oriented x3. Pt mabulating independently. Surgical sites intact. Pt refusing IVF, pt states she drinks enough water. This note was completed by: Eagle Gu [facility] NURSING PROG HNO ID: [id number] Author: Liliana Mayer RN Service: ? 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 Has three lap sites,open to air and glued.Showered this morning.Up in chair,ambulates in room without any difficulties.Denies pain. This note was completed by: Liliana Mayer [facility] NURSING PROG HNO ID: [id number] Author: Liliana Mayer RN Service: ? Author Type: Registered Nurse Type: Nursing Progress Note Filed: 04/05/2022 11:51 AM Note Text: Nursing Progress Note Patient Name: Mary Leal Patient Location: __ Daily Note:Heplock removed.Home-going instructiongiven,under stood instructions.E-script prescriptions to [facility] in [place], [place].Belongings packed and went with patient home.A few dressings given to patient for home(old ileostomy site).Discharged per wheelchair to daughter. This note was completed by: Liliana Mayer [facility] NUTRITIONon 04-05-2022 NUTRITION HNO ID: [id number] Author: Merced Morales DTR Service: Nutrition Therapy Author Type: Content Director Type: Nutrition Filed: 04/05/2022 10:42 AM Note Text: NUTRITION THERAPY SERGER NOTE SERVICE DATE: 04/05/2022 SERVICE TIME: 9:45 AM Visit Type: Length of Stay Plan of Care: Supplements: Impact AR Follow-Up: [facility] Reassessment Nursing Admission Assessment Malnutrition Score: [...] DATE: April 05, 2022 TIME: 9:54 AM [facility] SerPl-mCncon 04-05 Phosphate [Mass/Vol] 4.6 mg/dL Normal 2.7-4.8 [facility] Comment on above: Order Comment: Speci men Type: BLOOD SPECIMEN Ordering Facility: [facility] Address: [address] [place] [address] Performed By: #### 5 8410-2 #### [facility] CLIA [id number] [address] [place] [id number] [place] Basic metabolic 2000 panelon 04-04-2022 Anion gap [Moles/Vol] 10 mmol/L Normal 9-18 [facility] Comment on above: Order Comment: Speci men Type: BLOOD SPECIMENOrdering Facility: [facility] Address: [address] [place] [address] Performed By: #### 2 4321-2, , 2776-11 ####[facility]ATORYCLIA [id number] [place] [address] [place] Calcium [Mass/Vol] 8.9 mg/dL Normal 8.5-10.2 [facility] Comment on above: Order Comment: Speci men Type: BLOOD SPECIMENOrdering Facility: [facility] Address: [address] [place] [address] Performed By: #### 2 4321-2, , 2776-11 ####[facility]ORATORYCLIA [id number] [place] [address] [place] Chloride [Moles/Vol] 104 mmol/L Normal 97-105 [facility] Comment on above: Order Comment: Speci men Type: BLOOD SPECIMENOrdering Facility: [facility] Address: [address] [place], [place] [address] Performed By: #### 2 4321-2, , 2776-11 ####[facility]ATORYCLIA [id number] [place] [id number] [place] CO2 [Moles/Vol] 26 mmol/L Normal 22-30 [facility] Comment on above: Order Comment: Speci men Type: BLOOD SPECIMENOrdering Facility: [facility] Address: [address] [phone] Performed By: #### 2 4321-2, , 2776-11 ####[facility] LABORATORYCLIA [id number] [place] [id number] [place] Creatinine [Mass/Vol] 0.56 mg/dL Low 0.58-0.96 [facility] Comment on above: Order Comment: Leanne men Type: BLOOD SPECIMENOrdering Facility: [facility] Address: [address] [place], [place] [address] Performed By: #### 2 4321-2, , 2776-11 ####[facility] [id number] [place] [address] [place] [facility] ESTIMATED GLOMERULAR FILTRATION RATE 112 mL/min/1.73m??? Normal >=60 [facility] Comment on above: Order Comment: Leanne terry Type: BLOOD SPECIMENOrdering Facility: [facility] Address: [address] [place] [address] Result Comment: Mary mated Glomerular Filtration Rate [...] By: #### 2 4321-2, , 2776-11 ####[facility] LABORATORYIA [id number] [place] [id number] [place] Glucose [Mass/Vol] 112 mg/dL High 74-99 [facility] Comment on above: Order Comment: Leanne terry Type: BLOOD SPECIMENOrdering Facility: [facility] Address: [address] Result Comment: The [place] [employer] (ADA) provides guidance for cutoff [...] Standards of Medical Care in Diabetes 2016, [place] [employer]. Diabetes Care. 2016.39(Suppl 1). Performed By: #### 2 4321-2, , 2776-11 ####[facility]ATORYCLIA [id number] [place] [id number] [place] Potassium [Moles/Vol] 3.9 mmol/L Normal 3.7-5.1 [facility] Comment on above: Order Comment: Leanne terry Type: BLOOD SPECIMENOrdering Facility: [facility] Address: [address] [place] [address] Performed By: #### 2 4320-2, , 2776-11 ####[facility]ENTERCLIA [id number] [place] [address] [place] Sodium [Moles/Vol] 140 mmol/L Normal 136-144 [facility] Comment on above: Order Comment: Leanne terry Type: BLOOD SPECIMENOrdering Facility: [facility] Address: [address] [place] [address] Performed By: #### 2 1-2, , 2776-11 ####[facility]ATORYCLIA [id number] [place] [id number] [place] Urea nitrogen [Mass/Vol] 3 mg/dL Low 7-21 [facility] Comment on above: Order Comment: Leanne terry Type: BLOOD SPECIMENOrdering Facility: [facility] Address: [address] [place] [address] Performed By: #### 2 4321-2, , 2776-11 ####[facility]ORATORYCLIA [id number] [place] [id number] [place] CBC W Auto Differential pane l (Bld)on 04-04-2022 Basophils (Bld) [#/Vol] 0.03 10*3/uL Normal <0.11 [facility] Comment on above: Order Comment: Speci men Type: BLOOD SPECIMEN Ordering Facility: [facility] Address: [address] [place] [address] Performed By: #### 5 7021-8 #### [facility] CLIA [id number] [address] [place] [address] [place] Basophils/100 WBC (Bld) 0.5 % Normal [facility] Comment on above: Order Comment: Speci men Type: BLOOD SPECIMEN Ordering Facility: [facility] Address: [address] [place] [address] Performed By: #### 5 7021-8 #### [facility] CLIA [id number] [address] [place] [address] [place] Differential cell count method Nom (Bld) Auto Normal [facility] Comment on above: Order Comment: Speci men Type: BLOOD SPECIMEN Ordering Facility: [facility] Address: [address] [place] [address] Performed By: #### 5 7021-8 #### [facility] CLIA [id number] [address] [place] [address] [place] Eosinophils (Bld) [#/Vol] 0.48 10*3/uL High <0.46 [facility] Comment on above: Order Comment: Speci men Type: BLOOD SPECIMEN Ordering Facility: [facility] Address: [address] [place] [address] Performed By: #### 5 7021-8 #### [facility] CLIA [id number] [address] [place] [address] [place] Eosinophils/100 WBC (Bld) 7.7 % Normal [facility] Comment on above: Order Comment: Speci men Type: BLOOD SPECIMEN Ordering Facility: [facility] Address: [address] [place] [address] Performed By: #### 5 7021-8 #### [facility] CLIA [id number] [address] [place] [address] [place] Erythrocyte distribution width (RBC) [Ratio] 12.7 % Normal 11.5-15.0 [facility] Comment on above: Order Comment: Speci men Type: BLOOD SPECIMEN Ordering Facility: [facility] Address: [address] [place] [address] Performed By: #### 5 7021-8 #### [facility] CLIA [id number] [address] [place] [address] [place] Hematocrit (Bld) [Volume fraction] 31.2 % Low 36.0-46.0 [facility] Comment on above: Order Comment: Speci men Type: BLOOD SPECIMEN Ordering Facility: [facility] Address: [address] [place] [address] Performed By: #### 5 7021-8 #### [facility] CLIA [id number] [address] [place] [address] [place] Hemoglobin (Bld) [Mass/Vol] 10.7 g/dL Low 11.5-15.5 [facility] Comment on above: Order Comment: Speci men Type: BLOOD SPECIMEN Ordering Facility: [facility] Address: [address] [place] [address] Performed By: #### 5 7021-8 #### [facility] CLIA [id number] [address] [place] [address] OF [facility] IMMATURE GRAN % 0.5 % Normal [facility] Comment on above: Order Comment: Speci men Type: BLOOD SPECIMEN Ordering Facility: [facility] Address: [address] [place] [address] Performed By: #### 5 7021-8 #### [facility] CLIA [id number] [address] [place] [address] [place] IMMATURE GRAN ABS 0.03 k/uL Normal <0.10 [facility] Comment on above: Order Comment: Speci men Type: BLOOD SPECIMEN Ordering Facility: [facility] Address: [address] [place] [address] Performed By: #### 5 7021-8 #### [facility] CLIA [id number] [address] [place] [address] [place] Lymphocytes (Bld) [#/Vol] 1.13 10*3/uL Normal 1.00-4.00 [facility] Comment on above: Order Comment: Speci men Type: BLOOD SPECIMEN Ordering Facility: [facility] Address: [address] [place] [address] Performed By: #### 5 7021-8 #### [facility] CLIA [id number] [address] [place] [address] [place] Lymphocytes/100 WBC (Bld) 18.2 % Normal [facility] Comment on above: Order Comment: Speci men Type: BLOOD SPECIMEN Ordering Facility: [facility] Address: [address] [place] [address] Performed By: #### 5 7021-8 #### [facility] CLIA [id number] [address] [place] [address] [place] MCH (RBC) [Entitic mass] 29.9 pg Normal 26.0-34.0 [facility] Comment on above: Order Comment: Speci men Type: BLOOD SPECIMEN Ordering Facility: [facility] Address: [address] [place] [address] Performed By: #### 5 7021-8 #### [facility] CLIA [id number] [address] [place] [address] [place] MCHC (RBC) [Mass/Vol] 34.3 g/dL Normal 30.5-36.0 [facility] Comment on above: Order Comment: Speci men Type: BLOOD SPECIMEN Ordering Facility: [facility] Address: [address] [place] [address] Performed By: #### 5 7021-8 #### [facility] CLIA [id number] [address] [place] [address] [place] MCV (RBC) [Entitic vol] 87.2 fL Normal 80.0-100.0 [facility] Comment on above: Order Comment: Speci men Type: BLOOD SPECIMEN Ordering Facility: [facility] Address: [address] [address] Performed By: #### 5 7021-8 #### [facility] CLIA [id number] [address] [place] [address] [place] Monocytes (Bld) [#/Vol] 0.36 10*3/uL Normal <0.87 [facility] Comment on above: Order Comment: Speci men Type: BLOOD SPECIMEN Ordering Facility: [facility] Address: [address] [place] [address] Performed By: #### 5 7021-8 #### [facility] CLIA [id number] [address] [place] [address] [place] Monocytes/100 WBC (Bld) 5.8 % Normal [facility] Comment on above: Order Comment: Speci men Type: BLOOD SPECIMEN Ordering Facility: [facility] Address: [address] [place] [address] Performed By: #### 5 7021-8 #### [facility] CLIA [id number] [address] [place] [address] [place] Neutrophils (Bld) [#/Vol] 4.18 10*3/uL Normal 1.45-7.50 [facility] Comment on above: Order Comment: Speci men Type: BLOOD SPECIMEN Ordering Facility: [facility] Address: [address] [place] [address] Performed By: #### 5 7021-8 #### [facility] CLIA [id number] [address] [place] [address] [place] Neutrophils/100 WBC (Bld) 67.3 % Normal [facility] Comment on above: Order Comment: Speci men Type: BLOOD SPECIMEN Ordering Facility: [facility] Address: [address] [place] [address] Performed By: #### 5 7021-8 #### [facility] CLIA [id number] [address] [place] [address] [place] Nucleated RBC (Bld) [#/Vol] 10*3/uL Normal <0.01 [facility] Comment on above: Order Comment: Speci men Type: BLOOD SPECIMEN Ordering Facility: [facility] Address: [address] [place] [address] Performed By: #### 5 7021-8 #### [facility] CLIA [id number] [address] [place] [address] [place] Nucleated RBC/100 WBC (Bld) [Ratio] 0.0 /100 WBC Normal [facility] Comment on above: Order Comment: Speci men Type: BLOOD SPECIMEN Ordering Facility: [facility] Address: [address] [place] [address] Performed By: #### 5 7021-8 #### [facility] CLIA [id number] [address] [place] [address] [place] Platelet mean volume (Bld) [Entitic vol] 8.7 fL Low 9.0-12.7 [facility] Comment on above: Order Comment: Speci men Type: BLOOD SPECIMEN Ordering Facility: [facility] Address: [address] [place] [address] Performed By: #### 5 7021-8 #### [facility] CLIA [id number] [address] [place] [address] [place] Platelets (Bld) [#/Vol] 436 10*3/uL High 150-400 [facility] Comment on above: Order Comment: Speci men Type: BLOOD SPECIMEN Ordering Facility: [facility] Address: [address] [place] [address] Performed By: #### 5 7021-8 #### [facility] CLIA [id number] [address] [place] [address] [place] RBC (Bld) [#/Vol] 3.58 10*6/uL Low 3.90-5.20 [facility] Comment on above: Order Comment: Speci men Type: BLOOD SPECIMEN Ordering Facility: [facility] Address: [address] [place] [address] Performed By: #### 5 7021-8 #### [facility] CLIA [id number] [address] [place] [address] [place] WBC (Bld) [#/Vol] 6.21 10*3/uL Normal 3.70-11.00 [facility] Comment on above: Order Comment: Speci men Type: BLOOD SPECIMEN Ordering Facility: [facility] Address: [address] [place], [place] [address] Performed By: #### 5 7021-8 #### [facility] CLIA [id number] [address] [place] [id number] [facility] [place] Magnesium SerPl-mCncon 04-04 Magnesium [Mass/Vol] 2.1 mg/dL Normal 1.7-2.3 [facility] Comment on above: Order Comment: Speci men Type: BLOOD SPECIMENOrdering Facility: [facility] Address: [address] [place] [address] Performed By: #### 2 4321-2, 18635-1, 2777-1 ####[facility]ORYCLIA [id number] [place] [id number] [facility] [place] NURSING PROGon 04-04-2022 NURSING PROG HNO ID: [id number] Author: Dipti Crowley RN Service: Nursing Author Type: Registered Nurse Type: Nursing Progress Note Filed: 04/04/2022 11:11 AM Note Text: Nursing Progress Note Patient Name: Mary Leal Patient Location: [place] [address] [address] __ Daily Note: Patient up in chair and up ambulating in hallway with steady gait. VSS. RA POx. IVF as ordered. Transverse and Lap sites GO GO DANCER with glue. Dressing to old ostomy site CDI. Abdomen soft and tender. Patient states, feeling much better . Diet advanced, yet patient did not take in 25% of tray. Patient informed RN that I am leaving today. Do what you gotta do. I can do all of this at home . Dr Lamas paged and notified, but post call. 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 Will continue to monitor. Call light in reach. This note was completed by: [facility] NURSING PROG HNO ID: [id number] Author: Dipti Crowley RN Service: Nursing Author Type: Registered Nurse Type: Nursing Progress Note Filed: 04/04/2022 7:47 PM Note Text: Nursing Progress Note Patient Name: Mary Leal Patient Location: [place] [address] __ Daily Note:Patient refusing further IVF. This note was completed by: [facility] Phosphate SerPl-mCncon 04-04 Phosphate [Mass/Vol] 3.2 mg/dL Normal 2.7-4.8 [facility] Comment on above: Order Comment: Speci men Type: BLOOD SPECIMENOrdering Facility: [facility] Address: [address] [place] [address] Performed By: #### 2 4321-2, 19681-7, 2777-1 ####[facility]ORYCLIA [id number] [address] OF [facility] ALLIED HEALTHon 04-03-2022 ALLIED HEALTH HNO ID: [id number] Author: Adriana Daley, [place] Service: ? Author Type: Drum Builder Type: Allied Health Filed: 04/03/2022 5:35 PM [...] Martinez April 03, 2022 5:35 PM Normal [facility] Basic metabolic 2000 panelon 04-03-2022 Anion gap [Moles/Vol] 10 mmol/L Normal 9-18 [facility] Comment on above: Order Comment: Speci men Type: BLOOD SPECIMENOrdering Facility: [facility] Address: [address] [place] [address] Performed By: #### B MP #### [place] [phone] Calcium [Mass/Vol] 8.4 mg/dL Low 8.5-10.2 [facility] Comment on above: Order Comment: Speci men Type: BLOOD SPECIMENOrdering Facility: [facility] Address: [address] [place] [address] Performed By: #### B MP #### [phone] Chloride [Moles/Vol] 103 mmol/L Normal 97-105 [facility] Comment on above: Order Comment: Speci men Type: BLOOD SPECIMENOrdering Facility: [facility] Address: [address] [place] [address] Performed By: #### B MP #### [phone] CO2 [Moles/Vol] 25 mmol/L Normal 22-30 [facility] Comment on above: Order Comment: Speci men Type: BLOOD SPECIMENOrdering Facility: [facility] Address: [address] [place] [address] Performed By: #### B MP #### [place] [phone] Creatinine [Mass/Vol] 0.60 mg/dL Normal 0.58-0.96 [facility] Comment on above: Order Comment: Speci men Type: BLOOD SPECIMENOrdering Facility: [facility] Address: [address] [address] Performed By: #### B MP #### [place] [id number] [place] [address] ESTIMATED GLOMERULAR FILTRATION RATE 110 mL/min/1.73m??? Normal >=60 [facility] Comment on above: Order Comment: Leanne terry Type: BLOOD SPECIMENOrdering Facility: [facility] Address: [address] [place], [place] [address] Result Comment: Mary mated Glomerular Filtration Rate [...] GFR. Performed By: #### B MP #### [place] [phone] [place] [address] Glucose [Mass/Vol] 106 mg/dL High 74-99 [facility] Comment on above: Order Comment: Leanne harrison Type: BLOOD SPECIMENOrdering Facility: [facility] Address: [address] [place] [address] Result Comment: The [place] [employer] (ADA) provides guidance for cutoff [...] Standards of Medical Care in Diabetes 2016, [place] [employer]. Diabetes Care. 2016.39(Suppl 1). Performed By: #### B MP #### [place] [phone] [place] [address] Potassium [Moles/Vol] 3.3 mmol/L Low 3.7-5.1 [facility] Comment on above: Order Comment: Speci men Type: BLOOD SPECIMENOrdering Facility: [facility] Address: [address] [place] [address] Performed By: #### B MP #### [place] [phone] Sodium [Moles/Vol] 138 mmol/L Normal 136-144 [facility] Comment on above: Order Comment: Speci men Type: BLOOD SPECIMENOrdering Facility: [facility] Address: [address] [place] [address] Performed By: #### B MP #### [place] [phone] Urea nitrogen [Mass/Vol] 4 mg/dL Low 7-21 [facility] Comment on above: Order Comment: Speci men Type: BLOOD SPECIMENOrdering Facility: [facility] Address: [address] [place] [address] Performed By: #### B MP #### [place] [phone] CBC W Auto Differential pane l (Bld)on 04-03-2022 Basophils (Bld) [#/Vol] 0.03 10*3/uL Normal <0.11 [facility] Comment on above: Order Comment: Speci men Type: BLOOD SPECIMENOrdering Facility: [facility] Address: [address] [place] [address] Performed By: #### B MP #### [phone] Basophils/100 WBC (Bld) 0.4 % Normal [facility] Comment on above: Order Comment: Speci men Type: BLOOD SPECIMENOrdering Facility: [facility] Address: [address] [place] [address] Performed By: #### B MP #### [place] [phone] Differential cell count method Nom (Bld) Auto Normal [facility] Comment on above: Order Comment: Speci men Type: BLOOD SPECIMENOrdering Facility: [facility] Address: [address] [place] [address] Performed By: #### B MP #### [phone] Eosinophils (Bld) [#/Vol] 0.48 10*3/uL High <0.46 [facility] Comment on above: Order Comment: Speci men Type: BLOOD SPECIMENOrdering Facility: [facility] Address: [address] [place] [address] Performed By: #### B MP #### [place] [phone] Eosinophils/100 WBC (Bld) 6.5 % Normal [facility] Comment on above: Order Comment: Speci men Type: BLOOD SPECIMENOrdering Facility: [facility] Address: [address] [place] [address] Performed By: #### B MP #### [place] [phone] Erythrocyte distribution width (RBC) [Ratio] 12.5 % Normal 11.5-15.0 [facility] Comment on above: Order Comment: Speci men Type: BLOOD SPECIMENOrdering Facility: [facility] Address: [address] [place] [address] Performed By: #### B MP #### [place] [phone] Hematocrit (Bld) [Volume fraction] 29.5 % Low 36.0-46.0 [facility] Comment on above: Order Comment: Speci men Type: BLOOD SPECIMENOrdering Facility: [facility] Address: [address] [place] [address] Performed By: #### B MP #### [place] [phone] Hemoglobin (Bld) [Mass/Vol] 10.2 g/dL Low 11.5-15.5 [facility] Comment on above: Order Comment: Speci men Type: BLOOD SPECIMENOrdering Facility: [facility] Address: [address] [place] [address] Performed By: #### B MP #### [place] [phone] IMMATURE GRAN % 0.5 % Normal [facility] Comment on above: Order Comment: Speci men Type: BLOOD SPECIMENOrdering Facility: [facility] Address: [address] [place] [address] Performed By: #### B MP #### [place] [phone] IMMATURE GRAN ABS 0.04 k/uL Normal <0.10 [facility] Comment on above: Order Comment: Speci men Type: BLOOD SPECIMENOrdering Facility: [facility] Address: [address] [place] [address] Performed By: #### B MP #### [phone] Lymphocytes (Bld) [#/Vol] 1.11 10*3/uL Normal 1.00-4.00 [facility] Comment on above: Order Comment: Speci men Type: BLOOD SPECIMENOrdering Facility: [facility] Address: [address] [place] [address] Performed By: #### B MP #### [place] [phone] Lymphocytes/100 WBC (Bld) 15.0 % Normal [facility] Comment on above: Order Comment: Speci men Type: BLOOD SPECIMENOrdering Facility: [facility] Address: [address] [place] [address] Performed By: #### B MP #### [place] [phone] MCH (RBC) [Entitic mass] 30.1 pg Normal 26.0-34.0 [facility] Comment on above: Order Comment: Speci men Type: BLOOD SPECIMENOrdering Facility: [facility] Address: [address] [place] [address] Performed By: #### B MP #### [place] [phone] MCHC (RBC) [Mass/Vol] 34.6 g/dL Normal 30.5-36.0 [facility] Comment on above: Order Comment: Speci men Type: BLOOD SPECIMENOrdering Facility: [facility] Address: [address] [place] [address] Performed By: #### B MP #### [place] [phone] MCV (RBC) [Entitic vol] 87.0 fL Normal 80.0-100.0 [facility] Comment on above: Order Comment: Speci men Type: BLOOD SPECIMENOrdering Facility: [facility] Address: [address] [place] [address] Performed By: #### B MP #### [phone] Monocytes (Bld) [#/Vol] 0.46 10*3/uL Normal <0.87 [facility] Comment on above: Order Comment: Speci men Type: BLOOD SPECIMENOrdering Facility: [facility] Address: [address] [place] [address] Performed By: #### B MP #### [phone] Monocytes/100 WBC (Bld) 6.2 % Normal [facility] Comment on above: Order Comment: Speci men Type: BLOOD SPECIMENOrdering Facility: [facility] Address: [address] [place] [address] Performed By: #### B MP #### [phone] Neutrophils (Bld) [#/Vol] 5.27 10*3/uL Normal 1.45-7.50 [facility] Comment on above: Order Comment: Speci men Type: BLOOD SPECIMENOrdering Facility: [facility] Address: [address] [place] [address] Performed By: #### B MP #### [place] [phone] Neutrophils/100 WBC (Bld) 71.4 % Normal [facility] Comment on above: Order Comment: Speci men Type: BLOOD SPECIMENOrdering Facility: [facility] Address: [address] [place], [place] [address] Performed By: #### B MP #### [phone] Nucleated RBC (Bld) [#/Vol] 10*3/uL Normal <0.01 [facility] Comment on above: Order Comment: Speci men Type: BLOOD SPECIMENOrdering Facility: [facility] Address: [address] [place] [address] Performed By: #### B MP #### [phone] Nucleated RBC/100 WBC (Bld) [Ratio] 0.0 /100 WBC Normal [facility] Comment on above: Order Comment: Speci men Type: BLOOD SPECIMENOrdering Facility: [facility] Address: [address] [place] [address] Performed By: #### B MP #### [phone] Platelet mean volume (Bld) [Entitic vol] 8.6 fL Low 9.0-12.7 [facility] Comment on above: Order Comment: Speci men Type: BLOOD SPECIMENOrdering Facility: [facility] Address: [address] [place], [place] [address] Performed By: #### B MP #### [phone] Platelets (Bld) [#/Vol] 342 10*3/uL Normal 150-400 [facility] Comment on above: Order Comment: Speci men Type: BLOOD SPECIMENOrdering Facility: [facility] Address: [address] [place] [address] Performed By: #### B MP #### [place] [address] RBC (Bld) [#/Vol] 3.39 10*6/uL Low 3.90-5.20 [facility] Comment on above: Order Comment: Speci men Type: BLOOD SPECIMENOrdering Facility: [facility] Address: [address] [place] [address] Performed By: #### B MP #### [place] [phone] WBC (Bld) [#/Vol] 7.39 10*3/uL Normal 3.70-11.00 [facility] Comment on above: Order Comment: Speci men Type: BLOOD SPECIMENOrdering Facility: [facility] Address: [address] [place] [address] Performed By: #### B MP #### [place] [phone] CONSULT PROGon 04-03-2022 CONSULT PROG HNO ID: [id number] Author: Sarwat Huddleston PA-C Service: Pain Management Author Type: Physician Import/Export Specialist Type: Consult Progress Note Filed: 04/03/2022 8:39 [...] appears comf (more content not included)... Normal [facility] CT ABD/PEL W IVCONon 022 CT [...] Lower thorax: Visualized lung bases are clear. K 12 Principal (topogram) images: No additional findings. IMPRESSION: Postsurgical [...] collection is present in the lower pelvis Top Icer: CAPRI Transcribe Date/Time: Apr 03 2022 9:00P Dictated by : SHELBY ESPINOSA MD This examination was interpreted and the report reviewed and electronically signed by: SHELBY ESPINOSA MD on Apr 03 2022 9:12PM EST [id number] Normal [facility] Magn[facility] Magnesium [Mass/Vol] 1.6 mg/dL Low 1.7-2.3 [facility] Comment on above: Order Comment: Speci men Type: BLOOD SPECIMENOrdering Facility: [facility] Address: [facility] [place] [address] Performed By: #### B MP #### [facility] [address] [place] [address] NURSING PROGon 04-03-2022 NURSING PROG HNO ID: [id number] Author: Kev Leone RN Service: ? Author Type: Registered Nurse Type: Nursing Progress Note Filed: 04/03/2022 3:50 AM Note Text: Nursing Progress Note Patient Name: Mary Leal Patient Location: [place] [address] __ Daily Note: 2100: Pt refusing all PO meds at this time, states she's concerned that she's not digesting them properly. Paan currently being controlled with bilateral blocks and PRN IV pain medication. This note was completed by: Kev Leone [facility] NURSING PROG HNO ID: [id number] Author: Chava Remy RN Service: PICC Team [...] [facility] NURSING PROG HNO ID: [id number] Author: Dipti Crowley RN Service: Nursing Author Type: Registered Nurse Type: Nursing Progress Note Filed: 04/03/2022 11:33 AM Note Text: Nursing Progress Note Patient Name: Mary Leal Patient Location: __ Daily Note: Patient Up independently in [...] This note was completed by: Dipti Crowley [facility] NURSING PROG HNO ID: [id number] Author: Dipti Crowley RN Service: Nursing Author Type: Registered Nurse Type: Nursing Progress Note Filed: 04/03/2022 2:51 PM Note Text: Nursing Progress Note Patient Name: Mary Leal Patient Location: __ Daily Note:Patient unable to tolerate powder form of potassium due to nausea. Patient unable to tolerate IV form, it feels like It's paralyzing my arm . Attempted to dilute boluses and lower rates with no success. SR paged with events ([phone]). Awaiting further orders. This note was completed by: Dipti Crowley [facility] NURSING PROG HNO ID: [id number] Author: Beto Ford RN Service: ? Author Type: Registered Nurse Type: Nursing Progress Note Filed: 04/03/2022 9:39 PM Note Text: Nursing Progress Note Patient Name: Mary Leal [facility]BS[facility]L-[facility] __ Daily Note: 2129: Pt declined to have all oral medications. They just go right through me. I cannot take them. . Made RN aware. This note was completed by: Beto Ford [facility] Phosphate SerPl-mCncon 04-03 Phosphate [Mass/Vol] 3.3 mg/dL Normal 2.7-4.8 [facility] Comment on above: Order Comment: Speci men Type: BLOOD SPECIMENOrdering Facility: [facility] Address: [address] [place] [address] Performed By: #### B #### [place] [address] [facility] 04-02-2022 [facility] HNO ID: [id number] Author: RT Ban(Asiya) Service: Radiology Author Type: Technologist Type: Allied Health Filed: 04/02/2022 9:14 AM Note Text: Radiology Service Progress Note PATIENT NAME: Mary Lael DATE OF SERVICE: April 02, 2022 TIME: [...] PERIPHERAL IV DATA: Not applicable SIGNED BY: Tri Zee, RT(R) April 02, 2022 9:12 AM Normal [facility] CONSULT PROGon 04-02-2022 CONSULT PROG HNO ID: [id number] Author: Sarwat Huddleston PA-C Service: Pain Management Author Type: Physician Import/Export Specialist Type: Consult Progress Note Filed: 04/02/2022 9:00 [...] 29.3 5 (more content not included)... Normal [facility] NURSING PROGon 04-02-2022 NURSING PROG HNO ID: [id number] Author: Dipti Crowley RN Service: Nursing Author Type: Registered Nurse Type: Nursing Progress Note Filed: 04/02/2022 1:23 PM Note Text: Nursing Progress Note Patient Name: Mary Leal Patient Location: / __ Daily Note: Patient AANDOx3. VSS. RA [...] This note was completed by: Dipti Crowley [facility] XR ABDOMEN 1V SUPINEon 04-02 XR [...] may be of help for further evaluation. Top Icer: CAPRI Transcribe Date/Time: Apr 02 2022 9:16A Dictated by : JOAQUIN BRYANT MD This examination was interpreted and the report reviewed and electronically signed by: JOAQUIN BRYANT MD on Apr 02 2022 9:19AM EST [id number] [facility] Basic metabolic 2000 panelon 04-01-2022 Anion gap [Moles/Vol] 9 mmol/L Normal 9-18 [facility] Comment on above: Order Comment: Speci men Type: BLOOD SPECIMENOrdering Facility: [facility] Address: [address] [place], [place] [address] Performed By: #### B MP #### [place] [phone] Calcium [Mass/Vol] 7.9 mg/dL Low 8.5-10.2 [facility] Comment on above: Order Comment: Speci men Type: BLOOD SPECIMENOrdering Facility: [facility] Address: [address] [place] [address] Performed By: #### B MP #### [phone] Chloride [Moles/Vol] 106 mmol/L High 97-105 [facility] Comment on above: Order Comment: Speci men Type: BLOOD SPECIMENOrdering Facility: [facility] Address: [address] [place] [address] Performed By: #### B MP #### [place] [phone] CO2 [Moles/Vol] 26 mmol/L Normal 22-30 [facility] Comment on above: Order Comment: Speci men Type: BLOOD SPECIMENOrdering Facility: [facility] Address: [address] [place] [address] Performed By: #### B MP #### [place] [phone] Creatinine [Mass/Vol] 0.68 mg/dL Normal 0.58-0.96 [facility] Comment on above: Order Comment: Speci men Type: BLOOD SPECIMENOrdering Facility: [facility] Address: [address] [place] [address] Performed By: #### B MP #### [place] [phone] ESTIMATED GLOMERULAR FILTRATION RATE 107 mL/min/1.73m??? Normal >=60 [facility] Comment on above: Order Comment: Speci men Type: BLOOD SPECIMENOrdering Facility: [facility] Address: [address] [place], [place] [address] Result Comment: Mary mated Glomerular Filtration Rate [...] GFR. Performed By: #### B MP #### [place] [address] Glucose [Mass/Vol] 99 mg/dL Normal 74-99 [facility] Comment on above: Order Comment: Leanne terry Type: BLOOD SPECIMENOrdering Facility: [facility] Address: [address] [phone] Result Comment: The [place] [employer] (ADA) provides guidance for cutoff [...] Standards of Medical Care in Diabetes 2016, [place] [employer]. Diabetes Care. 2016.39(Suppl 1). Performed By: #### B MP #### [place] [address] Potassium [Moles/Vol] 3.7 mmol/L Normal 3.7-5.1 [facility] Comment on above: Order Comment: Leanne terry Type: BLOOD SPECIMENOrdering Facility: [facility] Address: [address] [place] [address] Performed By: #### B MP #### [place] [id number] [place] [address] Sodium [Moles/Vol] 141 mmol/L Normal 136-144 [facility] Comment on above: Order Comment: Leanne men Type: BLOOD SPECIMENOrdering Facility: [facility] Address: [address] [place] [address] Performed By: #### B MP #### [place] [phone] Urea nitrogen [Mass/Vol] 4 mg/dL Low 7-21 [facility] Comment on above: Order Comment: Speci men Type: BLOOD SPECIMENOrdering Facility: [facility] Address: [address] [place] [address] Performed By: #### B MP #### [place] [address] CBC panel Auto (Bld)on 04-01 Erythrocyte distribution width (RBC) [Ratio] 12.4 % Normal 11.5-15.0 [facility] Comment on above: Order Comment: Speci men Type: BLOOD SPECIMEN [facility] Address: [address] [place] [address] Performed By: #### 5 8410-2 #### [facility] CLIA [id number] [address] [place] [address] [place] Hematocrit (Bld) [Volume fraction] 29.3 % Low 36.0-46.0 [facility] Comment on above: Order Comment: Speci men Type: BLOOD SPECIMEN [facility] Address: [address] [place] [address] Performed By: #### 5 8410-2 #### [facility] CLIA [id number] [address] [place] [address] [place] Hemoglobin (Bld) [Mass/Vol] 9.6 g/dL Low 11.5-15.5 [facility] Comment on above: Order Comment: Speci men Type: BLOOD SPECIMEN [facility] Address: [address] [place] [address] Performed By: #### 5 8410-2 #### [facility] CLIA [id number] [address] [place] [address] [place] MCH (RBC) [Entitic mass] 29.4 pg Normal 26.0-34.0 [facility] Comment on above: Order Comment: Speci men Type: BLOOD SPECIMEN [facility] Address: [address] [place] [address] Performed By: #### 5 8410-2 #### [facility] CLIA [id number] [address] [place] [address] [place] MCHC (RBC) [Mass/Vol] 32.8 g/dL Normal 30.5-36.0 [facility] Comment on above: Order Comment: Speci men Type: BLOOD SPECIMEN [facility] Address: [address] [place] [address] Performed By: #### 5 8410-2 #### [facility] CLIA [id number] [address] [place] [address] [place] MCV (RBC) [Entitic vol] 89.9 fL Normal 80.0-100.0 [facility] Comment on above: Order Comment: Speci men Type: BLOOD SPECIMEN [facility] Address: [address] [place] [address] Performed By: #### 5 8410-2 #### [facility] CLIA [id number] [address] [place] [address] [place] Nucleated RBC (Bld) [#/Vol] 10*3/uL Normal <0.01 [facility] Comment on above: Order Comment: Speci men Type: BLOOD SPECIMEN [facility] Address: [address] [place] [address] Performed By: #### 5 8410-2 #### [facility] CLIA [id number] [address] [place] [address] [place] Platelet mean volume (Bld) [Entitic vol] 8.9 fL Low 9.0-12.7 [facility] Comment on above: Order Comment: Speci men Type: BLOOD SPECIMEN [facility] Address: [address] [place] [address] Performed By: #### 5 8410-2 #### [facility] CLIA [id number] [address] [place] [address] [place] Platelets (Bld) [#/Vol] 282 10*3/uL Normal 150-400 [facility] Comment on above: Order Comment: Speci men Type: BLOOD SPECIMEN [facility] Address: [address] [place] [address] Performed By: #### 5 8410-2 #### [facility] CLIA [id number] [address] [place] [address] [place] RBC (Bld) [#/Vol] 3.26 10*6/uL Low 3.90-5.20 [facility] Comment on above: Order Comment: Speci men Type: BLOOD SPECIMEN [facility] Address: [address] [place] [address] Performed By: #### 5 8410-2 #### [facility] CLIA [id number] [address] [place] [address] [place] WBC (Bld) [#/Vol] 7.39 10*3/uL Normal 3.70-11.00 [facility] Comment on above: Order Comment: Speci men Type: BLOOD SPECIMEN [facility] Address: [address] [place] [address] Performed By: #### 5 8410-2 #### [facility] CLIA [id number] [address] [place] [address] [place] CONSULT PROGon 04-01-2022 CONSULT PROG HNO ID: [id number] Author: Joslyn Jain APRN.HOUSE BUILDER Service: Pain Management Author Type: Nurse Practitioner [...] 0.67 Sod (more content not included)... Normal [facility] Magnesium SerPl-mCncon 04-01 Magnesium [Mass/Vol] 1.7 mg/dL Normal 1.7-2.3 [facility] Comment on above: Order Comment: Speci men Type: BLOOD SPECIMENOrdering Facility: [facility] Address: [address] [place] [address] Performed By: #### B MP #### [place] [phone] NURSING PROGon 04-01-2022 NURSING PROG HNO ID: [id number] Author: Eagle Gu RN Service: ? Author Type: Registered Nurse Type: Nursing Progress Note Filed: 04/01/2022 1:52 AM Note Text: Nursing Progress Note Patient Name: Mary Leal Patient Location: [place] [address]/FS5D-23 __ Daily Note:03/31/222030 Pt is alert and oriented x3. Surgical sites intact. Nerve blocks x2 intact. This note was completed by: Eagle Gu [facility] NURSING PROG HNO ID: [id number] Author: Eagle Gu RN Service: ? Author Type: Registered Nurse Type: Nursing Progress Note Filed: 04/01/2022 9:56 PM Note Text: Nursing Progress Note Patient Name: Mary Leal Patient Location: / __ Daily Note:04/01/222038 Pt is alert and oriented x3. Surgical sites intact. Tap blocks x2 intact. Made SROC aware of Pt experiencing sharp/stabbing pain in abdomen, rating 9/10. SROC recommended use of PRN Dilaudid This note was completed by: Eagle Langford [facility] Phosphate SerPl-mCncon 04-01 Phosphate [Mass/Vol] 2.8 mg/dL Normal 2.7-4.8 [facility] Comment on above: Order Comment: Speci men Type: BLOOD SPECIMENOrdering Facility: [facility] Address: [address] [place] [address] Performed By: #### B MP #### [place] [address] Basic metabolic 2000 panelon 03-31-2022 Anion gap [Moles/Vol] 10 mmol/L Normal 9-18 [facility] Comment on above: Order Comment: Speci men Type: BLOOD SPECIMEN [facility] Address: [address] [place] [address] Performed By: #### 5 8410-2 #### [facility] CLIA [id number] [address] [place] [address] [place] Calcium [Mass/Vol] 8.4 mg/dL Low 8.5-10.2 [facility] Comment on above: Order Comment: Speci men Type: BLOOD SPECIMEN [facility] Address: [address] [place] [address] Performed By: #### 5 8410-2 #### [facility] CLIA [id number] [address] [place] [address] STATES [facility] Chloride [Moles/Vol] 107 mmol/L High 97-105 [facility] Comment on above: Order Comment: Speci men Type: BLOOD SPECIMEN [facility] Address: [address] [place] [address] Performed By: #### 5 8410-2 #### [facility] CLIA [id number] [address] [place] [address] [place] [facility] [place] CO2 [Moles/Vol] 23 mmol/L Normal 22-30 [facility] Comment on above: Order Comment: Speci men Type: BLOOD SPECIMEN [facility] Address: [address] [place] [address] Performed By: #### 5 8410-2 #### [facility] CLIA [id number] [address] [place] [address] Creatinine [Mass/Vol] 0.67 mg/dL Normal 0.58-0.96 [facility] Comment on above: Order Comment: Speci men Type: BLOOD SPECIMEN [facility] Address: [address] [place] [address] Performed By: #### 5 8410-2 #### [facility] CLIA [id number] [address] [place] [address] ESTIMATED GLOMERULAR FILTRATION RATE 107 mL/min/1.73m??? Normal >=60 [facility] Comment on above: Order Comment: Speci men Type: BLOOD SPECIMEN [facility] Address: [address] [place] [address] Result Comment: Mary mated Glomerular Filtration Rate [...] GFR. Performed By: #### 5 8410-2 #### [facility] CLIA [id number] [address] [place] [address] [place] Glucose [Mass/Vol] 84 mg/dL Normal 74-99 [facility] Comment on above: Order Comment: Leanne terry Type: BLOOD SPECIMEN [facility] Address: [address] [place] [address] Result Comment: The [place] [employer] (ADA) provides guidance for cutoff [...] Standards of Medical Care in Diabetes 2016, [place] [employer]. Diabetes Care. 2016.39(Suppl 1). Performed By: #### 5 8410-2 #### [facility] CLIA [id number] [address] [place] [address] [place] Potassium [Moles/Vol] 3.8 mmol/L Normal 3.7-5.1 [facility] Comment on above: Order Comment: Leanne terry Type: BLOOD SPECIMEN [facility] Address: [address] [place] [address] Performed By: #### 5 8410-2 #### [facility] CLIA [id number] [address] [place] [address] [place] Sodium [Moles/Vol] 140 mmol/L Normal 136-144 [facility] Comment on above: Order Comment: Leanne terry Type: BLOOD SPECIMEN [facility] Address: [address] [place] [address] Performed By: #### 5 8410-2 #### [facility] CLIA [id number] [address] [place] [address] [place] Urea nitrogen [Mass/Vol] 11 mg/dL Normal 7-21 [facility] Comment on above: Order Comment: Everettei men Type: BLOOD SPECIMEN [facility] Address: [address] [place] [address] Performed By: #### 5 8410-2 #### [facility] CLIA [id number] [address] [place] [address] [place] CBC W Auto Differential pane l (Bld)on 03-31-2022 Basophils (Bld) [#/Vol] 0.03 10*3/uL Normal <0.11 [facility] Comment on above: Order Comment: Speci men Type: BLOOD SPECIMEN [facility]: [facility] Address: [address] [place] [address] Performed By: #### 5 7021-8 #### [facility] CLIA [id number] [address] [place] [address] [place] Basophils/100 WBC (Bld) 0.4 % Normal [facility] Comment on above: Order Comment: Speci men Type: BLOOD SPECIMEN [facility] Address: [address] [place] [address] Performed By: #### 5 7021-8 #### [facility] CLIA [id number] [address] [place] [address] [place] Differential cell count method Nom (Bld) Auto Normal [facility] Comment on above: Order Comment: Speci men Type: BLOOD SPECIMEN [facility]: [facility] Address: [address] [place] [address] Performed By: #### 5 7021-8 #### [facility] CLIA [id number] [address] [place] [address] [place] Eosinophils (Bld) [#/Vol] 0.38 10*3/uL Normal <0.46 [facility] Comment on above: Order Comment: Speci men Type: BLOOD SPECIMEN [facility]ing Facility: [facility] Address: [address] [place] [address] Performed By: #### 5 7021-8 #### [facility] CLIA [id number] [address] [place] [address] [place] Eosinophils/100 WBC (Bld) 4.4 % Normal [facility] Comment on above: Order Comment: Speci men Type: BLOOD SPECIMEN [facility]: [facility] Address: [address] [place] [address] Performed By: #### 5 7021-8 #### [facility] CLIA [id number] [address] [place] [address] [place] Erythrocyte distribution width (RBC) [Ratio] 12.6 % Normal 11.5-15.0 [facility] Comment on above: Order Comment: Speci men Type: BLOOD SPECIMEN [facility]: [facility] Address: [address] [place] [address] Performed By: #### 5 7021-8 #### [facility] CLIA [id number] [address] [place] [address] Hematocrit (Bld) [Volume fraction] 30.0 % Low 36.0-46.0 [facility] Comment on above: Order Comment: Speci men Type: BLOOD SPECIMEN Ordering Facility: [facility] Address: [address] [place] [address] Performed By: #### 5 7021-8 #### [facility] CLIA [id number] [address] [place] [address] [place] Hemoglobin (Bld) [Mass/Vol] 9.9 g/dL Low 11.5-15.5 [facility] Comment on above: Order Comment: Speci men Type: BLOOD SPECIMEN Ordering Facility: [facility] Address: [address] [place] [address] Performed By: #### 5 7021-8 #### [facility] CLIA [id number] [address] [place] [address] [place] IMMATURE GRAN % 0.4 % Normal [facility] Comment on above: Order Comment: Speci men Type: BLOOD SPECIMEN [facility]ing Facility: [facility] Address: [address] [place] [address] Performed By: #### 5 7021-8 #### [facility] CLIA [id number] [address] [place] [address] [place] IMMATURE GRAN ABS 0.03 k/uL Normal <0.10 [facility] [facility] Comment on above: Order Comment: Speci men Type: BLOOD SPECIMEN Ordering Facility: [facility] Address: [address] [place] [address] Performed By: #### 5 7021-8 #### [facility] CLIA [id number] [address] [place] [address] [place] Lymphocytes (Bld) [#/Vol] 1.24 10*3/uL Normal 1.00-4.00 [facility] Comment on above: Order Comment: Speci men Type: BLOOD SPECIMEN Ordering Facility: [facility] Address: [address] [place] [address] Performed By: #### 5 7021-8 #### [facility] CLIA [id number] [address] [place] [address] Lymphocytes/100 WBC (Bld) 14.5 % Normal [facility] Comment on above: Order Comment: Speci men Type: BLOOD SPECIMEN Ordering Facility: [facility] Address: [address] [place] [address] Performed By: #### 5 7021-8 #### [facility] CLIA [id number] [address] [place] [address] [place] MCH (RBC) [Entitic mass] 29.6 pg Normal 26.0-34.0 [facility] Comment on above: Order Comment: Speci men Type: BLOOD SPECIMEN Ordering Facility: [facility] Address: [address] [place] [address] Performed By: #### 5 7021-8 #### [facility] CLIA [id number] [address] [place] [address] [place] MCHC (RBC) [Mass/Vol] 33.0 g/dL Normal 30.5-36.0 [facility] Comment on above: Order Comment: Speci men Type: BLOOD SPECIMEN Ordering Facility: [facility] Address: [address] [place] [address] Performed By: #### 5 7021-8 #### [facility] CLIA [id number] [address] [place] [address] [place] MCV (RBC) [Entitic vol] 89.8 fL Normal 80.0-100.0 [facility] Comment on above: Order Comment: Speci men Type: BLOOD SPECIMEN Ordering Facility: [facility] Address: [address] [place] [address] Performed By: #### 5 7021-8 #### [facility] CLIA [id number] [address] [place] [address] [place] Monocytes (Bld) [#/Vol] 0.48 10*3/uL Normal <0.87 [facility] Comment on above: Order Comment: Speci men Type: BLOOD SPECIMEN Ordering Facility: [facility] Address: [address] [place] [address] Performed By: #### 5 7021-8 #### [facility] CLIA [id number] [address] [place] [address] [place] Monocytes/100 WBC (Bld) 5.6 % Normal [facility] Comment on above: Order Comment: Speci men Type: BLOOD SPECIMEN Ordering Facility: [facility] Address: [address] [place] [address] Performed By: #### 5 7021-8 #### [facility] CLIA [id number] [address] [place] [address] [place] Neutrophils (Bld) [#/Vol] 6.41 10*3/uL Normal 1.45-7.50 [facility] Comment on above: Order Comment: Speci men Type: BLOOD SPECIMEN Ordering Facility: [facility] Address: [address] [place] [address] Performed By: #### 5 7021-8 #### [facility] CLIA [id number] [address] [place] [address] [place] Neutrophils/100 WBC (Bld) 74.7 % Normal [facility] Comment on above: Order Comment: Speci men Type: BLOOD SPECIMEN Ordering Facility: [facility] Address: [address] [place] [address] Performed By: #### 5 7021-8 #### [facility] CLIA [id number] [address] [place] [address] [place] Nucleated RBC (Bld) [#/Vol] 10*3/uL Normal <0.01 [facility] Comment on above: Order Comment: Speci men Type: BLOOD SPECIMEN Ordering Facility: [facility] Address: [address] [place] [address] Performed By: #### 5 7021-8 #### [facility] CLIA [id number] [address] [place] [address] [place] Nucleated RBC/100 WBC (Bld) [Ratio] 0.0 /100 WBC Normal [facility] Comment on above: Order Comment: Speci men Type: BLOOD SPECIMEN Ordering Facility: [facility] Address: [address] [place] [address] Performed By: #### 5 7021-8 #### [facility] CLIA [id number] [address] [place] [address] [place] Platelet mean volume (Bld) [Entitic vol] 9.0 fL Normal 9.0-12.7 [facility] Comment on above: Order Comment: Speci men Type: BLOOD SPECIMEN Ordering Facility: [facility] Address: [address] [place] [address] Performed By: #### 5 7021-8 #### [facility] CLIA [id number] [address] [place] [address] [place] Platelets (Bld) [#/Vol] 246 10*3/uL Normal 150-400 [facility] Comment on above: Order Comment: Speci men Type: BLOOD SPECIMEN Ordering Facility: [facility] Address: [address] [place] [address] Performed By: #### 5 7021-8 #### [facility] CLIA [id number] [address] [place] [address] [place] RBC (Bld) [#/Vol] 3.34 10*6/uL Low 3.90-5.20 [facility] Comment on above: Order Comment: Speci men Type: BLOOD SPECIMEN Ordering Facility: [facility] Address: [address] [phone] Performed By: #### 5 7021-8 #### [facility] CLIA [id number] WBC (Bld) [#/Vol] 8.57 10*3/uL Normal 3.70-11.00 [facility] Comment on above: Order Comment: Speci men Type: BLOOD SPECIMEN Ordering Facility: [facility] Address: [address] [phone] Performed By: #### 5 7021-8 #### [facility] CLIA [id number] [address] [id number] [facility] CONSULT PROGon 03-31-2022 CONSULT PROG HNO ID: [id number] Author: Joslyn Jain APRN.CNP Service: Pain Management [...] PLAN/Recs: 1. Continue TAPS X 2 to 0// each, will likely remove it on Monday [...] AND U (more content not included)... Normal [facility] Magnesium SerPl-mCncon 03-31 Magnesium [Mass/Vol] 1.6 mg/dL Low 1.7-2.3 [facility] Comment on above: Order Comment: Speci men Type: BLOOD SPECIMEN Ordering Facility: [facility] Address: [address] [place] [address] Performed By: #### 5 8410-2 #### [facility] CLIA [id number] [place] [address] NURSING PROGon 03-31-2022 NURSING PROG HNO ID: [id number] Author: Mariluz Carnes RN Service: Nursing Author Type: Registered Nurse Type: Nursing Progress Note Filed: 03/30/2022 11:47 PM Note Text: Nursing Progress Note Patient Name: Mary Leal Patient Location: [place] [id number] __ Daily Note: Pt's BP 90/52. Patient asymptomatic. Surgery made aware. Order in for Bolus LR 500CC's. This note was completed by: Mariluz Carnes [facility] NURSING PROG HNO ID: [id number] Author: Daisy Amaya RN Service: Nursing Author Type: Registered Nurse Type: Nursing Progress Note Filed: 03/31/2022 4:56 PM Note Text: Nursing Progress Note Patient Name: Mary Leal Patient Location: [place] [address]/[id number] __ Daily Note: 0931- Pt A+Ox3. Up with standby assist. Ambulated pod multiple times. Laps intact. Old ostomy site WNL. Pt having liquid brown BMs. Voiding adq. No nausea, cp, or sob. Taps infusing per JAN. Pain controlled with PRN oxy. No further needs at this time. This note was completed by: Daisy Langford [facility] Phosphate SerPl-mCncon 03-31 Phosphate [Mass/Vol] 2.7 mg/dL Normal 2.7-4.8 [facility] Comment on above: Order Comment: Speci men Type: BLOOD SPECIMEN Ordering Facility: [facility] Address: [address] [place] [address] Performed By: #### 5 8410-2 #### [facility] CLIA [id number] [address] [place] [address] [place] Basic metabolic 2000 panelon 03-30-2022 Anion gap [Moles/Vol] 10 mmol/L Normal 9-18 [facility] Comment on above: Order Comment: Speci men Type: BLOOD SPECIMEN Ordering Facility: [facility] Address: [address] [place], [place] [address] Performed By: #### 1 9123-9, 2777-1, 63242-4 #### [facility] CLIA [id number] [address] [place] [address] [place] Calcium [Mass/Vol] 8.5 mg/dL Normal 8.5-10.2 [facility] Comment on above: Order Comment: Speci men Type: BLOOD SPECIMEN Ordering Facility: [facility] Address: [address] Performed By: #### 1 9123-9, 2777-1, 38804-7 #### [facility] CLIA [id number] [address] [place] [address] [place] Chloride [Moles/Vol] 103 mmol/L Normal 97-105 [facility] Comment on above: Order Comment: Speci men Type: BLOOD SPECIMEN Ordering Facility: [facility] Address: [address] [place], [place] [address] Performed By: #### 1 9123-9, 2776-11, 95857-8 #### [facility] CLIA [id number] [address] [place] [address] [place] CO2 [Moles/Vol] 24 mmol/L Normal 22-30 [facility] Comment on above: Order Comment: Leanne terry Type: BLOOD SPECIMEN Ordering Facility: [facility] Address: [address] [place] [address] Performed By: #### 1 9123-9, 2776-11, 45076-3 #### [facility] CLIA [id number] [address] [place] [address] [place] Creatinine [Mass/Vol] 0.69 mg/dL Normal 0.58-0.96 [facility] Comment on above: Order Comment: Leanne terry Type: BLOOD SPECIMEN Ordering Facility: [facility] Address: [address] [place] [address] Performed By: #### 1 9123-9, 2776-11, 41055-1 #### [facility] CLIA [id number] [address] [place] [address] [place] ESTIMATED GLOMERULAR FILTRATION RATE 107 mL/min/1.73m??? Normal >=60 [facility] Comment on above: Order Comment: Leanne terry Type: BLOOD SPECIMEN Ordering Facility: [facility] Address: [address] [place] [address] Result Comment: Mary mated Glomerular Filtration Rate [...] actual GFR. Performed By: #### 1 9123-9, 27705-06, 95098-8 #### [facility] CLIA [id number] [place] [address] [place] Glucose [Mass/Vol] 117 mg/dL High 74-99 [facility] Comment on above: Order Comment: Speci men Type: BLOOD SPECIMEN Ordering Facility: [facility] Address: [address] [phone] Result Comment: The [place] [employer] (ADA) provides guidance for cutoff [...] Standards of Medical Care in Diabetes 2016, [place] [employer]. Diabetes Care. 2016.39(Suppl 1). Performed By: #### 1 9123-9, 2777-, 81603-6 #### [facility] CLIA [id number] [address] [place] [address] [place] Potassium [Moles/Vol] 3.9 mmol/L Normal 3.7-5.1 [facility] Comment on above: Order Comment: Speci men Type: BLOOD SPECIMEN Ordering Facility: [facility] Address: [address] [place], [place] [phone] Performed By: #### 1 9123-9, 2777-, 81355-9 #### [facility] CLIA [id number] [address] [place] [address] [place] Sodium [Moles/Vol] 137 mmol/L Normal 136-144 [facility] Comment on above: Order Comment: Speci men Type: BLOOD SPECIMEN Ordering Facility: [facility] Address: [address] [phone] Performed By: #### 1 9123-9, 2777-, 62882-7 #### [facility] CLIA [id number] [address] [place] [address] [place] Urea nitrogen [Mass/Vol] 13 mg/dL Normal 7-21 [facility] Comment on above: Order Comment: Speci men Type: BLOOD SPECIMEN Ordering Facility: [facility] Address: [address] [address] Performed By: #### 1 9123-9, 2777-1, 11387-6 #### [facility] CLIA [id number] [address] [place] [address] CBC panel Auto (Bld)on 03-30 Erythrocyte distribution width (RBC) [Ratio] 12.8 % Normal 11.5-15.0 [facility] Comment on above: Order Comment: Speci men Type: BLOOD SPECIMEN Ordering Facility: [facility] Address: [address] [place] [address] Performed By: #### 5 8410-2 #### [facility] CLIA [id number] [address] [place] [address] Hematocrit (Bld) [Volume fraction] 35.0 % Low 36.0-46.0 [facility] Comment on above: Order Comment: Speci men Type: BLOOD SPECIMEN Ordering Facility: [facility] Address: [address] [place] [address] Performed By: #### 5 8410-2 #### [facility] CLIA [id number] [address] [place] [address] Hemoglobin (Bld) [Mass/Vol] 11.8 g/dL Normal 11.5-15.5 [facility] Comment on above: Order Comment: Speci men Type: BLOOD SPECIMEN Ordering Facility: [facility] Address: [address] [place] [address] Performed By: #### 5 8410-2 #### [facility] CLIA [id number] [address] [place] [address] STATES [facility] MCH (RBC) [Entitic mass] 30.6 pg Normal 26.0-34.0 [facility] Comment on above: Order Comment: Speci men Type: BLOOD SPECIMEN Ordering Facility: [facility] Address: [address] [place] [address] Performed By: #### 5 8410-2 #### [facility] CLIA [id number] [address] [place] [address] [place] MCHC (RBC) [Mass/Vol] 33.7 g/dL Normal 30.5-36.0 [facility] Comment on above: Order Comment: Speci men Type: BLOOD SPECIMEN Ordering Facility: [facility] Address: [address] [place] [address] Performed By: #### 5 8410-2 #### [facility] CLIA [id number] [address] [place] [address] [place] MCV (RBC) [Entitic vol] 90.7 fL Normal 80.0-100.0 [facility] Comment on above: Order Comment: Speci men Type: BLOOD SPECIMEN Ordering Facility: [facility] Address: [address] [place] [address] Performed By: #### 5 8410-2 #### [facility] CLIA [id number] [address] [place] [address] [place] Nucleated RBC (Bld) [#/Vol] 10*3/uL Normal <0.01 [facility] Comment on above: Order Comment: Speci men Type: BLOOD SPECIMEN Ordering Facility: [facility] Address: [address] [place] [address] Performed By: #### 5 8410-2 #### [facility] CLIA [id number] [address] [place] [address] [place] Platelet mean volume (Bld) [Entitic vol] 8.9 fL Low 9.0-12.7 [facility] Comment on above: Order Comment: Speci men Type: BLOOD SPECIMEN Ordering Facility: [facility] Address: [address] [place] [address] Performed By: #### 5 8410-2 #### [facility] CLIA [id number] [address] [place] [address] [place] Platelets (Bld) [#/Vol] 293 10*3/uL Normal 150-400 [facility] Comment on above: Order Comment: Speci men Type: BLOOD SPECIMEN Ordering Facility: [facility] Address: [address] [place] [address] Performed By: #### 5 8410-2 #### [facility] CLIA [id number] [address] [place] [address] [place] RBC (Bld) [#/Vol] 3.86 10*6/uL Low 3.90-5.20 [facility] Comment on above: Order Comment: Speci men Type: BLOOD SPECIMEN Ordering Facility: [facility] Address: [address] [place] [address] Performed By: #### 5 8410-2 #### [facility] CLIA [id number] [address] [place] [address] [place] WBC (Bld) [#/Vol] 11.25 10*3/uL High 3.70-11.00 [facility] Comment on above: Order Comment: Speci men Type: BLOOD SPECIMEN Ordering Facility: [facility] Address: [address] [place] [address] Performed By: #### 5 8410-2 #### [facility] CLIA [id number] [address] [place] [address] CONSULT PROGon 03-30-2022 CONSULT PROG HNO ID: [id number] Author: Joslyn Jain APRN.HOUSE BUILDER Service: Pain Management Author Type: Nurse Practitioner [...] eGFR >= (more content not included)... Normal [facility] Magnesium [Mass/Vol] 1.6 mg/dL Low 1.7-2.3 [facility] Comment on above: Order Comment: Speci men Type: BLOOD SPECIMEN Ordering Facility: [facility] Address: [address] [place] [address] Performed By: #### 1 9123-9, 2777-1, 69470-3 #### [facility] CLIA [id number] [address] [place] [address] Phosphate [facility] 03-30 Phosphate [Mass/Vol] 2.9 mg/dL Normal 2.7-4.8 [facility] Comment on above: Order Comment: Speci harrison Type: BLOOD SPECIMEN Ordering Facility: [facility] Address: [address] [place] [address] Performed By: #### 1 9123-9, 2777-1, 18380-0 #### [facility] CLIA [id number] [address] [place] [address] [place] ANES POSTPROC EVALon 022 ANES POSTPROC EVAL HNO ID: [id number] Author: Nathanael Craig DO Service: Anesthesiology Author [...] March 29, 2022 TIME: 8:29 AM CSN: [id number] Normal [facility] Basic metabolic 2000 panelon 03-29-2022 Anion gap [Moles/Vol] 9 mmol/L Normal 9-18 [facility] Comment on above: Order Comment: Speci men Type: BLOOD SPECIMEN Ordering Facility: [facility] Address: [address] [place] [address] Performed By: #### 5 8410-2 #### [facility] CLIA [id number] [address] [place] [address] [place] Calcium [Mass/Vol] 7.9 mg/dL Low 8.5-10.2 [facility] Comment on above: Order Comment: Speci men Type: BLOOD SPECIMEN Ordering Facility: [facility] Address: [address] [place] [address] Performed By: #### 5 8410-2 #### [facility] CLIA [id number] [place] [address] [place] Chloride [Moles/Vol] 105 mmol/L Normal 97-105 [facility] Comment on above: Order Comment: Speci men Type: BLOOD SPECIMEN Ordering Facility: [facility] Address: [address] [place] [address] Performed By: #### 5 8410-2 #### [facility] CLIA [id number] [address] [place] [address] [place] CO2 [Moles/Vol] 24 mmol/L Normal 22-30 [facility] Comment on above: Order Comment: Speci men Type: BLOOD SPECIMEN Ordering Facility: [facility] Address: [address] [place] [address] Performed By: #### 5 8410-2 #### [facility] CLIA [id number] [address] [place] [address] [place] Creatinine [Mass/Vol] 0.70 mg/dL Normal 0.58-0.96 [facility] Comment on above: Order Comment: Speci men Type: BLOOD SPECIMEN Ordering Facility: [facility] Address: [address] [place] [address] Performed By: #### 5 8410-2 #### [facility] CLIA [id number] [address] [place] [address] [place] ESTIMATED GLOMERULAR FILTRATION RATE 106 mL/min/1.73m??? Normal >=60 [facility] Comment on above: Order Comment: Speci men Type: BLOOD SPECIMEN Ordering Facility: [facility] Address: [address] [place] [address] Result Comment: Mary mated Glomerular Filtration Rate [...] GFR. Performed By: #### 5 8410-2 #### [facility] CLIA [id number] [place] [address] [place] Glucose [Mass/Vol] 92 mg/dL Normal 74-99 [facility] Comment on above: Order Comment: Speci men Type: BLOOD SPECIMEN Ordering Facility: [facility] Address: [address] [address] Result Comment: The [place] [employer] (ADA) provides guidance for cutoff [...] Standards of Medical Care in Diabetes 2016, [place] [employer]. Diabetes Care. 2016.39(Suppl 1). Performed By: #### 5 8410-2 #### [facility] CLIA [id number] [address] [place] [address] [place] Potassium [Moles/Vol] 4.1 mmol/L Normal 3.7-5.1 [facility] Comment on above: Order Comment: Leanne terry Type: BLOOD SPECIMEN Ordering Facility: [facility] Address: [address] [place] [address] Performed By: #### 5 8410-2 #### [facility] CLIA [id number] [address] [place] [address] [place] Sodium [Moles/Vol] 138 mmol/L Normal 136-144 [facility] Comment on above: Order Comment: Leanne terry Type: BLOOD SPECIMEN Ordering Facility: [facility] Address: [address] [address] Performed By: #### 5 8410-2 #### [facility] CLIA [id number] [address] [place] [address] [place] Urea nitrogen [Mass/Vol] 12 mg/dL Normal 7-21 [facility] Comment on above: Order Comment: Leanne terry Type: BLOOD SPECIMEN Ordering Facility: [facility] Address: [address] [address] Performed By: #### 5 8410-2 #### [facility] CLIA [id number] [address] [place] [address] [place] CBC W Auto Differential pane l (Bld)on 03-29-2022 Basophils (Bld) [#/Vol] 0.04 10*3/uL Normal <0.11 [facility] Comment on above: Order Comment: Speci men Type: BLOOD SPECIMEN Ordering Facility: [facility] Address: [address] [place] [address] Performed By: #### 5 7021-8 #### [facility] CLIA [id number] [address] [place] [address] [place] Basophils/100 WBC (Bld) 0.6 % Normal [facility] Comment on above: Order Comment: Speci men Type: BLOOD SPECIMEN Ordering Facility: [facility] Address: [address] [place] [address] Performed By: #### 5 7021-8 #### [facility] CLIA [id number] [address] [place] [address] [place] Differential cell count method Nom (Bld) Auto Normal [facility] Comment on above: Order Comment: Speci men Type: BLOOD SPECIMEN Ordering Facility: [facility] Address: [address] [place] [address] Performed By: #### 5 7021-8 #### [facility] CLIA [id number] [address] [place] [address] [place] Eosinophils (Bld) [#/Vol] 0.16 10*3/uL Normal <0.46 [facility] Comment on above: Order Comment: Speci men Type: BLOOD SPECIMEN Ordering Facility: [facility] Address: [address] [place] [address] Performed By: #### 5 7021-8 #### [facility] CLIA [id number] [address] [place] [address] [place] Eosinophils/100 WBC (Bld) 2.3 % Normal [facility] Comment on above: Order Comment: Speci men Type: BLOOD SPECIMEN Ordering Facility: [facility] Address: [address] [place], [place] [address] Performed By: #### 5 7021-8 #### [facility] CLIA [id number] [address] [place] [address] [place] Erythrocyte distribution width (RBC) [Ratio] 12.8 % Normal 11.5-15.0 [facility] Comment on above: Order Comment: Speci men Type: BLOOD SPECIMEN Ordering Facility: [facility] Address: [address] [place] [address] Performed By: #### 5 7021-8 #### [facility] CLIA [id number] [address] [place] [address] [place] Hematocrit (Bld) [Volume fraction] 32.3 % Low 36.0-46.0 [facility] Comment on above: Order Comment: Speci men Type: BLOOD SPECIMEN Ordering Facility: [facility] Address: [address] [place] [address] Performed By: #### 5 7021-8 #### [facility] CLIA [id number] [address] [place] [address] [place] Hemoglobin (Bld) [Mass/Vol] 10.7 g/dL Low 11.5-15.5 [facility] Comment on above: Order Comment: Speci men Type: BLOOD SPECIMEN Ordering Facility: [facility] Address: [address] [place] [address] Performed By: #### 5 7021-8 #### [facility] CLIA [id number] [address] [place] [address] [place] IMMATURE GRAN % 0.3 % Normal [facility] Comment on above: Order Comment: Speci men Type: BLOOD SPECIMEN Ordering Facility: [facility] Address: [address] [place] [address] Performed By: #### 5 7021-8 #### [facility] CLIA [id number] [address] [place] [address] [place] IMMATURE GRAN ABS <0.03 Normal <0.10 [facility] Comment on above: Order Comment: Speci men Type: BLOOD SPECIMEN Ordering Facility: [facility] Address: [address] [place] [address] Performed By: #### 5 7021-8 #### [facility] CLIA [id number] [address] [place] [address] [place] Lymphocytes (Bld) [#/Vol] 1.39 10*3/uL Normal 1.00-4.00 [facility] Comment on above: Order Comment: Speci men Type: BLOOD SPECIMEN Ordering Facility: [facility] Address: [address] [place] [address] Performed By: #### 5 7021-8 #### [facility] CLIA [id number] [address] [place] [address] [place] Lymphocytes/100 WBC (Bld) 19.7 % Normal [facility] Comment on above: Order Comment: Speci men Type: BLOOD SPECIMEN Ordering Facility: [facility] Address: [address] [place] [address] Performed By: #### 5 7021-8 #### [facility] CLIA [id number] [address] [place] [address] [place] MCH (RBC) [Entitic mass] 29.8 pg Normal 26.0-34.0 [facility] Comment on above: Order Comment: Speci men Type: BLOOD SPECIMEN Ordering Facility: [facility] Address: [address] [place] [address] Performed By: #### 5 7021-8 #### [facility] CLIA [id number] [address] [place] [address] [place] MCHC (RBC) [Mass/Vol] 33.1 g/dL Normal 30.5-36.0 [facility] Comment on above: Order Comment: Speci men Type: BLOOD SPECIMEN Ordering Facility: [facility] Address: [address] [place] [address] Performed By: #### 5 7021-8 #### [facility] CLIA [id number] [address] [place] [address] [place] MCV (RBC) [Entitic vol] 90.0 fL Normal 80.0-100.0 [facility] Comment on above: Order Comment: Speci men Type: BLOOD SPECIMEN Ordering Facility: [facility] Address: [address] [place] [address] Performed By: #### 5 7021-8 #### [facility] CLIA [id number] [address] [place] [address] [place] Monocytes (Bld) [#/Vol] 0.55 10*3/uL Normal <0.87 [facility] Comment on above: Order Comment: Speci men Type: BLOOD SPECIMEN Ordering Facility: [facility] Address: [address] [place] [address] Performed By: #### 5 7021-8 #### [facility] CLIA [id number] [address] [place] [address] [place] Monocytes/100 WBC (Bld) 7.8 % Normal [facility] Comment on above: Order Comment: Speci men Type: BLOOD SPECIMEN Ordering Facility: [facility] Address: [address] [place] [address] Performed By: #### 5 7021-8 #### [facility] CLIA [id number] [address] [place] [address] [place] Neutrophils (Bld) [#/Vol] 4.88 10*3/uL Normal 1.45-7.50 [facility] Comment on above: Order Comment: Speci men Type: BLOOD SPECIMEN Ordering Facility: [facility] Address: [address] [place] [address] Performed By: #### 5 7021-8 #### [facility] CLIA [id number] [address] [place] [address] [place] Neutrophils/100 WBC (Bld) 69.3 % Normal [facility] Comment on above: Order Comment: Speci men Type: BLOOD SPECIMEN Ordering Facility: [facility] Address: [address] [place] [address] Performed By: #### 5 7021-8 #### [facility] CLIA [id number] [address] [place] [address] [place] Nucleated RBC (Bld) [#/Vol] 10*3/uL Normal <0.01 [facility] Comment on above: Order Comment: Speci men Type: BLOOD SPECIMEN Ordering Facility: [facility] Address: [address] [place] [address] Performed By: #### 5 7021-8 #### [facility] CLIA [id number] [address] [place] [address] [place] Nucleated RBC/100 WBC (Bld) [Ratio] 0.0 /100 WBC Normal [facility] Comment on above: Order Comment: Speci men Type: BLOOD SPECIMEN Ordering Facility: [facility] Address: [address] [place] [address] Performed By: #### 5 7021-8 #### [facility] CLIA [id number] [address] [place] [address] [place] Platelet mean volume (Bld) [Entitic vol] 9.0 fL Normal 9.0-12.7 [facility] Comment on above: Order Comment: Speci men Type: BLOOD SPECIMEN Ordering Facility: [facility] Address: [address] [place] [address] Performed By: #### 5 7021-8 #### [facility] CLIA [id number] [address] [place] [address] [place] Platelets (Bld) [#/Vol] 241 10*3/uL Normal 150-400 [facility] Comment on above: Order Comment: Speci men Type: BLOOD SPECIMEN Ordering Facility: [facility] Address: [address] [place], [place] [id number] Performed By: #### 5 7021-8 #### [facility] CLIA [id number] [address] [place] [address] [place] RBC (Bld) [#/Vol] 3.59 10*6/uL Low 3.90-5.20 [facility] Comment on above: Order Comment: Speci men Type: BLOOD SPECIMEN Ordering Facility: [facility] Address: [address] [place] [address] Performed By: #### 5 7021-8 #### [facility] CLIA [id number] [address] [place] [address] [place] WBC (Bld) [#/Vol] 7.04 10*3/uL Normal 3.70-11.00 [facility] Comment on above: Order Comment: Speci men Type: BLOOD SPECIMEN Ordering Facility: [facility] Address: [facility] [place] [address] Performed By: #### 5 7021-8 #### [facility] CLIA [id number] [address] [place] [id number] [facility] CONSULT PROGon 03-29-2022 CONSULT PROG HNO ID: [id number] Author: Joslyn Jain APRN.HOUSE BUILDER Service: Pain Management Author Type: Nurse Practitioner [...] is on liq diet, currently on Dilaudid LIBRARY PAGE at 0/0.2/10/6 last 2 hours 06/27 bolus [...] No Relieved: Yes - NOW with increase LIBRARY PAGE and Repositioning and LIBRARY PAGE Is patient satisfied with pain control: Yes [...] mL PERIPHERAL NERVE CATHETER CONTINUOUS - HYDROmorphone LIBRARY PAGE 0.5 mg/mL in NaCl 0.9% 100 mL [...] % 69.3 (more content not included)... Normal [facility] Magnesium SerPl-mCncon 03-29 Magnesium [Mass/Vol] 1.4 mg/dL Low 1.7-2.3 [facility] Comment on above: Order Comment: Speci men Type: BLOOD SPECIMEN Ordering Facility: [facility] Address: [facility] [place] [phone] Performed By: #### 5 8410-2 #### [facility] CLIA [id number] [address] [place] [address] OF [facility] NURSING PROGon 03-29-2022 NURSING PROG HNO ID: [id number] Author: Kev Leone, RN Service: ? Author Type: Registered Nurse Type: Nursing Progress Note Filed: 03/29/2022 3:53 AM Note Text: Nursing Progress Note Patient Name: Mary Leal Patient Location: RM0F-03 __ Daily Note: 0350: Pt states she is in 10/10 pain, pt has no PO pain meds ordered, page sent to surgery resident This note was completed by: Kev Leone [facility] NURSING PROG HNO ID: [id number] Author: Dipti Crowley RN Service: Nursing Author Type: Registered Nurse Type: Nursing Progress Note Filed: 03/29/2022 2:00 PM Note Text: Nursing Progress Note Patient Name: Mary Leal Patient Location: __ Daily Note: Patient VSS. RA POx. Pain level better controlled now that LIBRARY PAGE initiated. B/L Ropivacaine Tap Blocks with dressings CDI. Magnesium replenished as ordered. Transverse and lap sites GO GO DANCER with glue. Dressing to old ostomy saturated [...] and staff. This note was completed by: [facility] PT EDon 03-29-2022 PT ED HNO ID: [id number] Author: Merced Morales DTR Service: Nutrition Therapy Author Type: Content Director Type: Patient Education Filed: 03/29/2022 11:05 AM [...] 03-29 Phosphate [Mass/Vol] 2.9 mg/dL Normal 2.7-4.8 [facility] Comment on above: Order Comment: Speci men Type: BLOOD SPECIMEN Ordering Facility: [facility] Address: [address] [place], [place] [phone] Performed By: #### 5 8410-2 #### [facility] CLIA [id number] [place] [address] [place] ANES PRE-OPon 03-28-2022 ANES PRE-OP HNO ID: [id number] Author: Anibal Bertrand MD Service: Anesthesiology Author [...] (FLONASE) 50 mcg/actuation nasal spray Use 1 Duson in each nostril on (more content not included)... [facility] BRIEF OP NOTon 03-28-2022 BRIEF OP NOT HNO ID: [id number] Author: Nita Lamas MD Service: Colorectal Author Type: Fellow Type: Brief Op Note Filed: 03/28/2022 3:43 PM Note Text: BRIEF OPERATIVE NOTE - COLORECTAL SURGERY Log ID: [id number] Surgery/Procedure Date: 03/28/2022 Incision/Procedure Start Time: 9:47 AM Incision Close/Procedure End Time: 3:40 PM Surgeon(s) and Import/Export Specialist(s): Surgeon(s) and Role: * aMry Obrien MD - Primary * Yolanda Cervantes MD - Resident - Assisting * Nita [...] NURSING PROGon 03-28-2022 NURSING PROG HNO ID: [id number] Author: Vianney Chacon RN Service: Nursing Author [...] Signed By: Vianney Chacon [facility] NURSING PROG HNO ID: [id number] Author: Monica Nicole RN Service: Nursing Author Type: Registered Nurse Type: Nursing Progress Note Filed: 03/28/2022 6:35 PM Note Text: Nursing Progress Note Patient Name: Mary Leal Patient Location: [facility] OR POOL/[facility] OR POOL __ Daily Note: 1749: Dr. Novak notified of patients increase in heart rate from arrival to post op. Patient HR now maintaining in the 120s. 0: business services vice president rounding at patient bedside. Dressing and abdomen assessed- drainage to be expected on island dressing. Notified him of patients HR running high and notified that patient normally takes 50mg atenolol but held today for surgery. Patient's pain managed and other VS stable at this time. business services vice president is OK with patient going to regular nursing floor at this time. Family updated. This note was completed by: Monica Nicole [facility] NURSING PROG HNO ID: [id number] Author: Merced Lay RN Service: ? Author Type: Registered Nurse Type: Nursing Progress Note Filed: 03/28/2022 6:56 PM Note Text: Nursing Progress Note Patient Name: Mary Leal Patient Location: [place] [address] [address] __ Transfer Note: Patient transferred into room/unit PK3B22 in stable condition. Actions taken: No futher actions taken at this time. Will continue to monitor and check with patient. Paged surgical team. Pt has TAP blocks, but orders were discontinued from PACU. New orders for blocks need to be placed in eMAR. Awaiting call back or orders. This note was completed by: Merced Lay [facility] OPERATIVE NOon 03-28-2022 OPERATIVE NO HNO ID: [id number] Author: Mary Obrien MD Service: Colorectal Author Type: Physician Type: Operative Report Filed: 03/28/2022 5:06 PM Note Text: COLON AND RECTAL SURGERY OPERATIVE REPORT PATIENT NAME: Mary Leal ADMISSION DATE: 03/28/2022 LOG ID: [id number] SURGERY/PROCEDURE DATE: 03/28/2022 INCISION/PROCEDURE START TIME: 9:47 AM INCISION CLOSE/PROCEDURE END TIME: 3:40 PM AGE: [age] year old SEX: female SURGEON(S)/PROCEDURALI ST(S) AND APRICOT PACKER(S): Surgeon(s) and Role: * Mary Obrien MD - Primary * Yolanda Cervantes MD - Resident - Assisting * Nita [...] The abdome (more content not included)... Normal [facility] SURGICAL PATHOLOGYon CASE REPORT Normal [facility] Comment on above: Order Comment: Speci men Type: BLOOD SPECIMEN Ordering Facility: [facility] Address: [address] [place] [address] Result Comment: Surg ica Pathology Report Case: [id number] Authorizing Provider: Mary Obrien MD Collected: 03/28/2022 01:43 PM Ordering Location: [facility] Received: 03/28/2022 04:10 PM Operating Room Pathologist: Areli Rodriguez MD Specimen: COLON RESECTION, terminal ileum with ileostomy Performed By: #### 5 7021-8 #### [facility] CLIA [id number] [address] [place] [address] [place] OF [facility] CLINICAL HISTORY ILEORECTAL ANASTOMOSIS, TAKEDOWN OF ILEOSTOMY Normal [facility] Comment on above: Order Comment: Speci men Type: BLOOD SPECIMEN Ordering Facility: [facility] Address: [address] [place] [address] Performed By: #### 5 7021-8 #### [facility] CLIA [id number] [address] [place] [address] DIAGNOSIS COMMENT The histologic findings are nonspecific [...] Speci men Type: BLOOD SPECIMEN Ordering Facility: [facility] Address: [address] [place] [address] Performed By: #### 5 7021-8 #### [facility] CLIA [id number] [address] [place] [address] FINAL DIAGNOSIS [facility] Comment on above: Order Comment: Speci men Type: BLOOD SPECIMEN Ordering Facility: [facility] Address: [address] [place] [address] Result Comment: Morrison n and terminal ileum with ileostomy, resection: - Colon with patchy active colitis, submucosal fibrosis, acute serositis, and fibrovascular adhesions (see comment). - Small bowel with focal transmural defect, acute serositis, fibrovascular adhesions, and changes consistent with ileostomy site. - Benign lymph nodes. JEL 03/31/2022 Performed By: #### 5 7021-8 #### [facility] CLIA [id number] [address] [place] [address] FINAL PERFORMING LAB [facility] Comment on above: Order Comment: Speci men Type: BLOOD SPECIMEN Ordering Facility: [facility] Address: [address] [place] [address] Result Comment: Diag nostic interpretation performed at [facility], [address] [place] [address] CLIA# [id number] Dump Truck Operator: Rajiv Anderson M.D. Performed By: #### 5 7021-8 #### [facility] [place] [id number] [address] OF [facility] GROSS DESCRIPTION Normal [facility] Comment on above: Order Comment: Speci men Type: BLOOD SPECIMEN Ordering Facility: [facility] Address: [address] [place], [place] [address] [phone] Result Comment: A. C OLON RESECTION. Received [...] diverticula. The serosa is jaimes-pink and smooth. Compliance Nurse sections are submitted from distal to proximal [...] 2022 9:53 AM Gross examination performed at [facility], [address] [place] [address] CLIA # [id number] Performed By: #### 5 7021-8 #### [facility] CLIA [id number] [address] [place] [address] [place] Q - CBC W/DIFF AND PLTon BASOABS 59 cells/uL Normal 0-200 [facility] Diplomatic Officer Comment on above: Order Comment: [facility] performed at: [facility], [address] [place] [address], [address] [place] [address], [phone], Dump Truck Operator: Gopal Hamilton MD [facility] Collection Date/Time: [facility] Results Received Date/Time: [facility] Reported Date/Time: Performed By: #### 9 68T, 04234J, %8293, 05811L, 6399, 496X #### [facility] Default [address] [place] [address] Basophils/100 WBC (Bld) 1.0 % Normal [facility] Specialist Comment on above: Order Comment: [facility] performed at: [employer] [facility], [address] [facility], [address] [place] [address], [phone], Dump Truck Operator: Gopal Hamilton MD [facility] Date/Time: [facility] Results Received Date/Time: [facility] Reported Date/Time: Performed By: #### 9 68T, 53901O, %8293, 13444M, 6399, 496X #### [facility] Default [address] [place] [address] EOSABS 171 cells/uL Normal 15-500 [facility] Specialist Comment on above: Order Comment: [facility] performed at: [employer] [facility], [address] [facility], [address] [place] [address], [address] [place] [address], Dump Truck Operator: Gopal Hamilton MD [facility] Date/Time: [facility] Results Received Date/Time: [facility] Reported Date/Time: Performed By: #### 9 68T, 91137D, %8293, 70286A, 6399, 496X #### [facility] Default [address] [place] [address] Eosinophils/100 WBC (Bld) 2.9 % Normal [facility] Comment on above: Order Comment: [facility] performed at: [employer] [facility], [address] [place] [address], [address] [place] [address], [address] [place] [address], Dump Truck Operator: Gopal Hamilton MD [facility] Date/Time: [facility] Results Received Date/Time: [facility] Reported Date/Time: Performed By: #### 9 68T, 52480N, %8293, 94140O, 6399, 496X #### [facility] Default [address] [place] [address] Erythrocyte distribution width (RBC) [Ratio] 12.9 % Normal 11.0-15.0 [facility] Specialist Comment on above: Order Comment: [facility] performed at: [employer] [facility], [address] [facility], [address] [place] [address], [address] [place] [address], Dump Truck Operator: Gopal Hamilton MD [facility] Date/Time: [facility] Results Received Date/Time: [facility] Reported Date/Time: Performed By: #### 9 68T, 86097E, %8293, 16044S, 6399, 496X #### [facility] Default [address] [place] [address] Hematocrit (Bld) [Volume fraction] 38.1 % Normal 35.0-45.0 [facility] Diplomatic Officer Comment on above: Order Comment: [facility] performed at: [employer] [facility], [address] [facility], [address] [place] [address], [address] [place] [address], Dump Truck Operator: Gopal Hamilton MD [facility] Date/Time: [facility] Results Received Date/Time: [facility] Reported Date/Time: Performed By: #### 9 68T, 22705W, %8293, 12537E, 6399, 496X #### [facility] Default [address] [place] [address] Hemoglobin (Bld) [Mass/Vol] 12.9 g/dL Normal 11.7-15.5 [facility] Diplomatic Officer Comment on above: Order Comment: [facility] performed at: [employer] [facility], [address] [place] [address], [address] [place] [address], [address] [place] [address], Dump Truck Operator: Gopal Hamilton MD [facility] Date/Time: [facility] Results Received Date/Time: [facility] Reported Date/Time: Performed By: #### 9 68T, 53369Y, %8293, 93843M, 6399, 496X #### [facility] Default [address] [place] [address] Lymphocytes (Bld) [#/Vol] 1.375 10*3/uL Normal 850-3900 [facility] Diplomatic Officer Comment on above: Order Comment: [facility] performed at: [employer] [facility], [address] [place] [address], [address] [place] [address], [address] [place] [address], Dump Truck Operator: Gopal Hamilton MD [facility] Date/Time: [facility] Results Received Date/Time: [facility] Reported Date/Time: Performed By: #### 9 68T, 94161V, %8293, 55489X, 6399, 496X #### [facility] Default [address] [place] [address] Lymphocytes/100 WBC (Bld) 23.3 % Normal [facility] Specialist Comment on above: Order Comment: [facility] performed at: [employer] [facility], [address] [place] [address], [address] [place] [address], [address] [place] [address], Dump Truck Operator: Gopal Hamilton MD [facility] Date/Time: [facility] Results Received Date/Time: [facility] Reported Date/Time: Performed By: #### 9 68T, 25733O, %8293, 02222A, 6399, 496X #### [facility] Default [address] [place] [address] MCH (RBC) [Entitic mass] 30.0 pg Normal 27.0-33.0 [facility] Specialist Comment on above: Order Comment: [facility] performed at: [facility], [address] [facility], [address] [place] [address], [address] [place] [address], Dump Truck Operator: Gopal Hamilton MD [facility] Date/Time: [facility] Results Received Date/Time: [facility] Reported Date/Time: Performed By: #### 9 68T, 81971L, %8293, 93891O, 6399, 496X #### [facility] Default [address] [place] [address] MCHC (RBC) [Mass/Vol] 33.9 g/dL Normal 32.0-36.0 [facility] Comment on above: Order Comment: [facility] performed at: [facility], [address] [place] [address], [address] [place] [address], [address] [place] [address], Dump Truck Operator: Gopal Hamilton MD [facility] Date/Time: [facility] Results Received Date/Time: [facility] Reported Date/Time: Performed By: #### 9 68T, 14339D, %8293, 99065U, 6399, 496X #### [facility] Default [address] [place] [address] MCV (RBC) [Entitic vol] 88.6 fL Normal 80.0-100.0 [facility] Specialist Comment on above: Order Comment: [facility] performed at: [employer] [facility], [address] [facility], [address] [place] [address], [address] [place] [address], Dump Truck Operator: Gopal Hamilton MD [facility] Date/Time: [facility] Results Received Date/Time: [facility] Reported Date/Time: Performed By: #### 9 68T, 90730V, %8293, 00817R, 6399, 496X #### [facility] Default [address] [place] [address] MONOABS 460 cells/uL Normal 200-950 [facility] Diplomatic Officer Comment on above: Order Comment: [facility] performed at: [employer] [facility], [address] , [address] [place] [address], [address] [place] [address], Dump Truck Operator: Gopal Hamilton MD [facility] Date/Time: [facility] Results Received Date/Time: [facility] Reported Date/Time: Performed By: #### 9 68T, 32838B, %8293, 63315H, 6399, 496X #### [facility] Default [address] [place] [address] Monocytes/100 WBC (Bld) 7.8 % Normal [facility] Diplomatic Officer Comment on above: Order Comment: [facility] performed at: [employer] [facility], [address] , [address] [place] [address], [address] [place] [address], Dump Truck Operator: Gopal Hamilton MD [facility] Date/Time: [facility] Results Received Date/Time: [facility] Reported Date/Time: Performed By: #### 9 68T, 56354L, %8293, 34981U, 6399, 496X #### [facility] Default [address] [place] [address] Neutrophils (Bld) [#/Vol] 3.835 10*3/uL Normal 1900-1739 [facility] Diplomatic Officer Comment on above: Order Comment: [facility] performed at: [employer] [facility], [address] , [address] [place] [address], [address] [place] [address], Dump Truck Operator: Gopal Hamilton MD [facility] Date/Time: [facility] Results Received Date/Time: [facility] Reported Date/Time: Performed By: #### 9 68T, 15318P, %8293, 86445P, 6399, 496X #### [facility] Default [address] [place] [address] Neutrophils/100 WBC (Bld) 65 % Normal [facility] Diplomatic Officer Comment on above: Order Comment: [facility] performed at: [facility], [address] , [address] [place] [address], [address] [place] [address], Dump Truck Operator: Gopal Hamilton MD [facility] Date/Time: [facility] Results Received Date/Time: [facility] Reported Date/Time: Performed By: #### 9 68T, 68560C, %8293, 57344R, 6399, 496X #### [facility] Default [address] [place] [address] Platelet mean volume (Bld) [Entitic vol] 9.3 fL Normal 7.5-12.5 [facility] Diplomatic Officer Comment on above: Order Comment: [facility] performed at: [employer] [facility], [address] , [address] [place] [address], [phone], Dump Truck Operator: Gopal Hamilton MD [facility] Date/Time: [facility] Results Received Date/Time: [facility] Reported Date/Time: Performed By: #### 9 68T, 80412B, %8293, 62159X, 6399, 496X #### [facility] Default [address] [place] [address] Platelets (Bld) [#/Vol] 409 10*3/uL High 140-400 [facility] Comment on above: Order Comment: [facility] Testing performed at: [employer] [facility], [address] , [address] [place] [address], [phone], Dump Truck Operator: Gopal Hamilton MD [facility] Collection Date/Time: [facility] Results Received Date/Time: [facility] Reported Date/Time: Performed By: #### 9 68T, 23434U, %8293, 75579L, 6399, 496X #### [facility] Default [address] [place] [address] RBC (Bld) [#/Vol] 4.30 10*6/uL Normal 3.80-5.10 [facility] Comment on above: Order Comment: [facility] Testing performed at: [employer] [facility], [address] , [address] [place] [address], [address], Dump Truck Operator: Gopal Hamilton MD [facility] Collection Date/Time: [facility] Results Received Date/Time: [facility] Reported Date/Time: Performed By: #### 9 68T, 97782O, %8293, 67976C, 6399, 496X #### [facility] Default [address] [place] [address] WBC (Bld) [#/Vol] 5.9 10*3/uL Normal 3.8-10.8 [facility] Comment on above: Order Comment: [facility] Testing performed at: [employer] [facility], [address], [address] [place] [address], [address] [place] [address], Dump Truck Operator: Gopal Hamilton MD [facility] Collection Date/Time: [facility] Results Received Date/Time: [facility] Reported Date/Time: Performed By: #### 9 68T, 79178Q, %8293, 37482V, 6399, 496X #### [facility] Default [address] [place] [address] Q - COMPREHENSIVE METABOLIC PANEL W/EGFRon 03-10-2022 Albumin [Mass/Vol] 4.3 g/dL Normal 3.6-5.1 [facility] Specialist Comment on above: Order Comment: [facility] Testing performed at: [facility], [address] [place] [address], [address] [place] [address], [address] [place] [address], Dump Truck Operator: Gopal Hamilton MD [facility] Collection Date/Time: [facility] Results Received Date/Time: [facility] Reported Date/Time: Performed By: #### 9 68T, 83121N, %8293, 46829D, 6399, 496X #### [facility] Default [address] [place] [address] Albumin/Globulin [Mass ratio] 1.7 {ratio} Normal 1.0-2.5 [facility] Specialist Comment on above: Order Comment: [facility] Testing performed at: [facility], [address] [place] [address], [address] [place] [address], [address] [place] [address], Dump Truck Operator: Gopal Hamilton MD [facility] Collection Date/Time: [facility] Results Received Date/Time: [facility] Reported Date/Time: Performed By: #### 9 68T, 38847N, %8293, 92748G, 6399, 496X #### [facility] Default [address] [place] [address] ALP [Catalytic activity/Vol] 134 U/L High 31-125 [facility] Diplomatic Officer Comment on above: Order Comment: [facility] Testing performed at: [employer] [facility], [address] , [address] [place] [address], [address] [place] [address], Dump Truck Operator: Gopal Hamilton MD [facility] Collection Date/Time: [facility] Results Received Date/Time: [facility] Reported Date/Time: Performed By: #### 9 68T, 44572C, %8293, 38485U, 6399, 496X #### [facility] Default [address] [place] [address] ALT [Catalytic activity/Vol] 41 U/L High 6-29 [facility] Comment on above: Order Comment: [facility] Testing performed at: [employer] [facility], [address] [facility], [address] [place] [address], [address] [place] [address], Dump Truck Operator: Gopal Hamilton MD [facility] Collection Date/Time: [facility] Results Received Date/Time: [facility] Reported Date/Time: Performed By: #### 9 68T, 11328L, %8293, 84437S, 6399, 496X #### [facility] Default [address] [place] [address] AST [Catalytic activity/Vol] 33 U/L Normal 10-35 [facility] Comment on above: Order Comment: [facility] Testing performed at: [facility], [address] [facility], [address] [place] [address], [address] [place] [address], Dump Truck Operator: Gopal Hamilton MD [facility] Collection Date/Time: [facility] Results Received Date/Time: [facility] Reported Date/Time: Performed By: #### 9 68T, 29388T, %8293, 96796X, 6399, 496X #### [facility] Default [address] [place] [address] BUN/CREA 17 NOT APPLICABLE Normal 6-22 [facility] Comment on above: Order Comment: [facility] Testing performed at: [employer] [facility], [address] , [address] [place] [address], [address] [place] [address], Dump Truck Operator: Gopal Hamilton MD [facility] Collection Date/Time: [facility] Results Received Date/Time: [facility] Reported Date/Time: Performed By: #### 9 68T, 66796R, %8293, 27753D, 6399, 496X #### [facility] Default [address] [place] [address] Calcium [Mass/Vol] 9.6 mg/dL Normal 8.6-10.2 [facility] Specialist Comment on above: Order Comment: [facility] Testing performed at: [facility], [address] [place] [address], [address] [place] [address], [address] [place] [address], Dump Truck Operator: Gopal Hamilton MD [facility] Collection Date/Time: [facility] Results Received Date/Time: [facility] Reported Date/Time: Performed By: #### 9 68T, 52112M, %8293, 66577W, 6399, 496X #### [facility] Default [address] [place] [address] Chloride [Moles/Vol] 103 mmol/L Normal 98-110 [facility] Comment on above: Order Comment: [facility] Testing performed at: [facility], [address] [place] [address], [address] [place] [address], [address] [place] [address], Dump Truck Operator: Gopal Hamilton MD [facility] Collection Date/Time: [facility] Results Received Date/Time: [facility] Reported Date/Time: Performed By: #### 9 68T, 04958L, %8293, 19119U, 6399, 496X #### [facility] Default [address] [place] [address] CO2 [Moles/Vol] 27 mmol/L Normal 20-32 [facility] Diplomatic Officer Comment on above: Order Comment: [facility] Testing performed at: [facility], [address] [place] [address], [address] [place] [address], [address] [place] [address], Dump Truck Operator: Gopal Hamilton MD [facility] Collection Date/Time: [facility] Results Received Date/Time: [facility] Reported Date/Time: Performed By: #### 9 68T, 29688K, %8293, 92265V, 6399, 496X #### [facility] Default [address] [place] [address] Creatinine [Mass/Vol] 0.65 mg/dL Normal 0.50-1.10 [facility] Comment on above: Order Comment: [facility] Testing performed at: [employer] [facility], [address] [place] [address], [address] [place] [address], [address] [place] [address], Dump Truck Operator: Gopal Hamilton MD [facility] Collection Date/Time: [facility] Results Received Date/Time: [facility] Reported Date/Time: Performed By: #### 9 68T, 83595I, %8293, 76046K, 6399, 496X #### [facility] Default [address] [place] [address] eGFRAA (Quest) 121 mL/min/1.73m2 Normal > OR = 60 [facility] Dipl[facility] Comment on above: Order Comment: [facility] Testing performed at: [facility], [address] [place] [address], [address] [place] [address], [address] [place] [address], Dump Truck Operator: Gopal Hamilton MD [facility] Collection Date/Time: [facility] Results Received Date/Time: [facility] Reported Date/Time: Performed By: #### 9 68T, 23474H, %8293, 29126P, 6399, 496X #### [facility] Default [address] [place] [address] eGFRNAA (Quest) 104 mL/min/1.73m2 Normal > OR = 60 No rthern [place] Diplomatic Officer Comment on above: Order Comment: [facility] Testing performed at: [employer] [facility], [address] [facility], [address] [place] [address], [address] [place] [address], Dump Truck Operator: Gopal Hamilton MD [facility] Collection Date/Time: [facility] Results Received Date/Time: [facility] Reported Date/Time: Performed By: #### 9 68T, 68682V, %8293, 48819E, 6399, 496X #### [facility] Default [address] [place] [address] Globulin (S) [Mass/Vol] 2.5 g/dL Normal 1.9-3.7 [facility] Comment on above: Order Comment: [facility] Testing performed at: [employer] [facility], [address] [facility], [address] [place] [address], [address] [place] [address], Dump Truck Operator: Gopal Hamliton MD [facility] Collection Date/Time: [facility] Results Received Date/Time: [facility] Reported Date/Time: Performed By: #### 9 68T, 15723B, %8293, 66817X, 6399, 496X #### [facility] Default [address] [place] [address] Glucose [Mass/Vol] 94 mg/dL Normal 65-99 [facility] Comment on above: Order Comment: [facility] Testing performed at: [employer] [facility], [address] [facility], [address] [place] [address], [address] [place] [address], Dump Truck Operator: Gopal Hamilton MD [facility] Collection Date/Time: [facility] Results Received Date/Time: [facility] Reported Date/Time: Result Comment: Fasting reference interval Performed By: #### 9 68T, 41266N, %8293, 04080I, 6399, 496X #### [facility] Default [address] [place] [address] Potassium [Moles/Vol] 4.4 mmol/L Normal 3.5-5.3 [facility] Diplomatic Officer Comment on above: Order Comment: [facility] Testing performed at: [employer] [facility], [address] [facility], [address] [place] [address], [address] [place] [address], Dump Truck Operator: Gopal Hamilton MD [facility] Collection Date/Time: [facility] Results Received Date/Time: [facility] Reported Date/Time: Performed By: #### 9 68T, 76185C, %8293, 32222O, 6399, 496X #### [facility] Default [address] [place] [address] Protein [Mass/Vol] 6.8 g/dL Normal 6.1-8.1 Jay gambino [place] Diplomatic Officer Comment on above: Order Comment: [facility] Testing performed at: [employer] [facility], [address] [facility], [address] [place] [address], [address] [place] [address], Dump Truck Operator: Gopal Hamilton MD [facility] Collection Date/Time: [facility] Results Received Date/Time: [facility] Reported Date/Time: Performed By: #### 9 68T, 06633X, %8293, 01308I, 6399, 496X #### [facility] Default [address] [place] [address] Sodium [Moles/Vol] 138 mmol/L Normal 135-146 Jay gambino [place] Diplomatic Officer Comment on above: Order Comment: [facility] Testing performed at: [employer] [facility], [address] , [address] [place] [address], [address] [place] [address], Dump Truck Operator: Gopal Hamilton MD [facility] Collection Date/Time: [facility] Results Received Date/Time: [facility] Reported Date/Time: Performed By: #### 9 68T, 96426M, %8293, 48793B, 6399, 496X #### [facility] Default [address] [place] [address] TBIL <0.3 Normal 0.2-1.2 [facility] Diplomatic Officer Comment on above: Order Comment: [facility] Testing performed at: [employer] [facility], [address] [facility], [address] [place] [address], [address] [place] [address], Dump Truck Operator: Gopal Hamilton MD [facility] Collection Date/Time: [facility] Results Received Date/Time: [facility] Reported Date/Time: Performed By: #### 9 68T, 94432C, %8293, 35583Q, 6399, 496X #### [facility] Default [address] [place] [address] Urea nitrogen [Mass/Vol] 11 mg/dL Normal 7-25 [facility] Diplomatic Officer Comment on above: Order Comment: [facility] Testing performed at: [employer] [facility], [address] [facility], [address] [place] [address], [address] [place] [address], Dump Truck Operator: Gopal Hamilton MD [facility] Collection Date/Time: [facility] Results Received Date/Time: [facility] Reported Date/Time: Performed By: #### 9 68T, 62189W, %8293, 59540Z, 6399, 496X #### [facility] Default [address] [place] [address] Q - DLDL REFLEXon 03-10-2022 Cholesterol in LDL [Mass/Vol] 87 mg/dL Normal <100 [facility] Diplomatic Officer Comment on above: Order Comment: [facility] Testing performed at: [employer] [facility], [address] [facility], [address] [place] [address], [address], Dump Truck Operator: Gopal Hamilton MD [facility] Collection Date/Time: [id number] [facility] Results Received Date/Time: [facility] Reported Date/Time: Result Comment: Desirable range <100 mg/dL for primary prevention; <70 mg/dL for patients with CHD or diabetic patients with > or = 2 CHD risk factors. Performed By: #### 9 68T, 55693L, %8293, 37706X, 6399, 496X #### [facility] Default [address] [place] [address] Q - HEMOGLOBIN A1Con 022 HEMOGLOBIN A1c 5.0 % of total Hgb Normal <5.7 No rthern [facility] Comment on above: Order Comment: [facility] Testing performed at: [employer] [facility], [address], [address] [place], [address], Dump Truck Operator: Gopal Hamilton MD [facility] Collection Date/Time: [...] diagnosis of diabetes in children. According to [place] [employer] (ADA) guidelines, hemoglobin A1c <7.0% represents optimal control in non- diabetic patients. Different metrics may apply to specific patient populations. Standards of Medical Care in Diabetes(ADA). Performed By: #### 9 68T, 44568U, %8293, 35877F, 6399, 496X #### [facility] Default [address] [place] [address] Q - Lipid Panelon 03-10-2022 Cholesterol [Mass/Vol] 230 mg/dL High <200 [facility] Comment on above: Order Comment: [facility] Testing performed at: [employer] [facility], [address], [address] [place], [address], Dump Truck Operator: Gopal Hamilton MD [facility] Collection Date/Time: [id number] [facility] Results Received Date/Time: [facility] Reported Date/Time: Performed By: #### 9 68T, 83750S, %8293, 07800Q, 6399, 496X #### [facility] Default [address] [place] [address] Cholesterol in HDL [Mass/Vol] 52 mg/dL Normal > OR = 50 [facility] Diplomatic Officer Comment on above: Order Comment: [facility] Testing performed at: [employer] [facility], [address] [facility], [address] [place] [address], [address] [place] [address], Dump Truck Operator: Gopal Hamilton MD [facility] Collection Date/Time: [facility] Results Received Date/Time: [facility] Reported Date/Time: Performed By: #### 9 68T, 73006I, %8293, 33122K, 6399, 496X #### [facility] Default [address] [place] [address] Cholesterol.total/Cho lesterol in HDL [Mass ratio] 4.4 {ratio} Normal <5.0 [facility] Diplomatic Officer Comment on above: Order Comment: [facility] Testing performed at: [employer] [facility], [address] [place] [address], [address] [place] [address], [address] [place] [address], Dump Truck Operator: Gopal Hamilton MD [facility] Collection Date/Time: [facility] Results Received Date/Time: [facility] Reported Date/Time: Performed By: #### 9 68T, 21090E, %8293, 84674E, 6399, 496X #### [facility] Default [address] [place] [address] LDLD SEE NOTE Normal [facility] Diplomatic Officer Comment on above: Order Comment: [facility] Testing performed at: [employer] [facility], [address] [place] [address], [address] [place] [address], [address] [place] [address], Dump Truck Operator: Gopal Hamilton MD [facility] Collection Date/Time: [...] LDL-C. Estevan SCHILLING et al. ZANA. 2013;310(19): 9453-3171 (http://education.[employer]/faq/DTT619) Performed By: #### 9 68T, 37603Q, %8293, 76804P, 6399, 496X #### [facility] Default [address] [place] [address] NON HDL CHOLESTEROL 178 mg/dL (calc) High <130 [facility] Diplomatic Officer Comment on above: Order Comment: [facility] Testing performed at: [facility], [address] [place] [address], [address] [place] [address], [address], Dump Truck Operator: Gopal Hamilton MD [facility] Collection Date/Time: [facility] Results Received Date/Time: [facility] Reported Date/Time: Result Comment: For patients with diabetes plus 1 major ASCVD risk factor, treating to a non-HDL-C goal of <100 mg/dL (LDL-C of <70 mg/dL) is considered a therapeutic option. Performed By: #### 9 68T, 23277G, %8293, 54343R, 6399, 496X #### [facility] Default [address] [place] [address] Triglyceride [Mass/Vol] 410 mg/dL High <150 [facility] Diplomatic Officer Comment on above: Order Comment: [facility] Testing performed at: [facility], [address] [place] [address], [address] [place] [address], [address], Dump Truck Operator: Gopal Hamilton MD [facility] Collection Date/Time: [facility] Results Received Date/Time: [facility] Reported Date/Time: Result Comment: If a non-fasting specimen was collected, consider repeat triglyceride testing on a fasting specimen if clinically indicated. João et al. J. of Clin. Lipidol. 2015;9:129-169. Performed By: #### 9 68T, 65128W, %8293, 10316V, 6399, 496X #### [facility] Default [address] [place] [address] Q - TROPONIN Ion 03-10-2022 TROPONIN I 3 ng/L Normal < OR = 47 [facility] Diplomatic Officer Comment on above: Order Comment: [facility] Testing performed at: [facility], [facility], [address] [facility], [address] [place], [address], Dump Truck Operator: Gopal Hamilton MD [facility] Collection Date/Time: [facility] Results Received Date/Time: [facility] Reported Date/Time: Result Comment: In accord with published recommendations, serial testing of troponin I at intervals of 2 to 4 hours for up to 12 to 24 hours is suggested in order to corroborate a single troponin I result. An elevated troponin alone is not sufficient to make the diagnosis of [place]. Performed By: #### 9 68T, 43999B, %8293, 35523O, 6399, 496X #### [facility] Default [address] [place] [address] UA DIP, URINE (POC)on 2021 BILIRUBIN UA (POCT) Negative Negative [facility] CLARITY UA (POCT) [facility] COLOR UA (POCT) Yellow [facility] GLUCOSE UA (POCT) Negative Negative mg/dL [facility] HEMOGLOBIN/BLOOD UA (POCT) Negative Negative [facility] KETONE UA (POCT) Negative Negative mg/dL [facility] LEUKOCYTES UA (POCT) Negative Negative [facility] NITRITE UA (POCT) Negative Negative [facility] PH UA (POCT) 5.0 4.5 - 8.0 [facility] Protein Ql (U) Trace Abnormal Negative mg/dL [facility] SPECIFIC GRAVITY UA (POCT) >=1.030 1.005 - 1.030 [facility] UROBILINOGEN UA (POCT) 0.2 E.U./dL Normal E.U./dL [facility] CNTHERAPYon 01-31-2022 CNTHERAPY OT/PT/Speech Visit (PTLHO) MARY LEAL ([id number]) 1970 F Date Time Provider Department 01/31/22 10:30 AM NEWTON [facility]ODWARD Date Time Provider Department [place] 01/31/2022 10:30 AM [id number], JILL KALEIGH [facility] Reason for Visit: Physical [...] (FLONASE) 50 mcg/actuation nasal spray Use 1 Duson in each nostril once daily. - carBAMazepine [...] Take 50 mg by mouth once daily. [facility] CNTHERAPYon 01-24-2022 CNTHERAPY OT/PT/Speech Visit (PTLHO) MARY LEAL ([id number]) 1970 F Date Time Provider Department 01/24/22 10:30 AM NEWTON WOODWARD PTLHO Date Time Provider Department Center 01/24/2022 10:30 AM [id number], JILL [facility] Reason for Visit: Physical [...] (FLONASE) 50 mcg/actuation nasal spray Use 1 Duson in each nostril once daily. - carBAMazepine [...] Take 50 mg by mouth once daily. [facility] CNTHERAPYon 01-18-2022 CNTHERAPY OT/PT/Speech Visit (PTLHO) MARY LEAL ([id number]) 1970 F Date Time Provider Department 01/18/22 12:15 PM JESSI ISAACS PTLSAVANNAH Date Time Provider Department Center 01/18/2022 12:15 PM [id number][facility] Visit: PT Eval [747] [...] (FLONASE) 50 mcg/actuation nasal spray Use 1 Duson in each nostril once daily. - carBAMazepine [...] mg by mouth once daily. Letter Text [facility] 12-27-2021 [facility] HNO ID: [id number] Author: Sonido Owen MD Service: Colorectal Author Type: Resident Type: Discharge Summary Filed: 12/27/2021 3:55 PM Note Text: Attestation signed by Mary Obrien MD at 12/29/2021 4:11 PM [facility] STAFF PHYSICIAN NOTE OF PERSONAL INVOLVEMENT IN [...] the PACU and was transferred to the [facility]. Postoperatively, the patient recovered well. Her [...] 50 mg Finesse (more content not included)... [facility] CONSULTon 12-27-2021 CONSULT HNO ID: [id number] Author: Dai Hines RN Service: Wound/Ostomy Author Type: Registered Nurse Type: Consults Filed: 12/27/2021 3:32 PM Note Text: STOMA CARE POST-OPERATIVE ASSESSMENT AND PATIENT EDUCATION Patient Name: Mary Leal Date: December 27, 2021 Time: 3:20 PM ET Care Outcome: Ms. Leal was seen today on the [facility] for ostomy education and a pouch change lesson. ET's Next Scheduled Visit: Complete. STOMA ASSESSMENT Stoma type: Loop ileostomy Diameter: 35 mm with and extra 1 mm cut on the medial side of the pouch. Location: RLQ Protrusion: Budded, Os points downward Mucosal condition and color: Red and [place] and moist. Boni: No Mucocutaneous Junction: Intact [...] one piece cut to fit drainable pouch (#36186) and Coloplast Brava moldable ring (2mm) #[id number]. Brava barrier strips, product # [id number] applied around the border of the pouch. [...] Home Health Agency SIGNATURE: Dai FRIEDMANN RN COCN CWCN This is an electronically created document. IF PRINTED, PLEASE DO NOT REMOVE FROM THE CHART OR MODIFY PRINTED COPY. Normal [facility] NURSING PROGon 12-27-2021 NURSING PROG HNO ID: [id number] Author: Marizol Hankins RN Service: ? Author Type: Registered Nurse Type: Nursing Progress Note Filed: 12/27/2021 4:39 PM Note Text: Nursing Progress Note Patient Name: Mary Leal Patient Location: [id number] __ Daily Note: Pt AANDO x 3. [...] [facility]21 NUTRITION HNO ID: [id number] Author: Merced Morales DTR Service: Nutrition Therapy Author Type: Content Director Type: Nutrition Filed: 12/27/2021 12:16 PM Note Text: NUTRITION THERAPY SERGER NOTE SERVICE DATE: 12/27/2021 SERVICE TIME: 10:00 [...] PT EDon 12-27-2021 PT ED HNO ID: [id number] Author: Merced Morales DTR Service: Nutrition Therapy Author Type: Content Director Type: Patient Education Filed: 12/27/2021 12:16 PM [...] Anion gap [Moles/Vol] 9 mmol/L Normal 9-18 [facility] Comment on above: Performed By: #### B #### [place] [address] Calcium [Mass/Vol] 8.5 mg/dL Normal 8.5-10.5 [facility] Comment on above: Performed By: #### B MP #### [phone] Chloride [Moles/Vol] 102 mmol/L Normal 98-110 [facility] Comment on above: Performed By: #### B MP #### [phone] CO2 [Moles/Vol] 28 mmol/L Normal 23-32 [facility] Comment on above: Performed By: #### B MP #### [phone] Creatinine [Mass/Vol] 0.62 mg/dL Low 0.70-1.40 [facility] Comment on above: Performed By: #### B MP #### [place] [phone] eGFR- Amer. >60 Normal >59 [facility] Comment on above: Performed By: #### B MP #### [phone] eGFR-All Other Races >60 Normal >59 [facility] Comment on above: Result Comment: eGFR [...] [email or web address]. Performed By: #### B MP #### [place] [phone] Glucose [Mass/Vol] 71 mg/dL Normal 65-100 [facility] Comment on above: Performed By: #### B MP #### [place] [phone] Potassium [Moles/Vol] 4.0 mmol/L Normal 3.5-5.0 [facility] Comment on above: Performed By: #### B MP #### [place] [phone] Sodium [Moles/Vol] 139 mmol/L Normal 132-148 [facility] Comment on above: Performed By: #### B MP #### [place] [phone] Urea nitrogen [Mass/Vol] 10 mg/dL Normal 8-25 [facility] Comment on above: Performed By: #### B MP #### [place] [phone] NURSING PROGon 12-26-2021 NURSING PROG HNO ID: [id number] Author: Dipti Crowley RN Service: Nursing Author Type: Registered Nurse Type: Nursing Progress Note Filed: 12/26/2021 3:51 PM Note Text: Nursing Progress Note Patient Name: Mary Leal Patient Location: [place] [address] __ Daily Note: Patient AANDOx3. VSS. 2L NC POx. IVF infusing as ordered. Dilaudid LIBRARY PAGE, OXY IR on for pain. Patient drowsy yet easily arousable. Lap sites and transverse incision GO GO DANCER with glue. Ileostomy draining liquid brown. Call draining clear yellow. PAS on. No edema. Fa,saman at bed side. Call light in reach. This note was completed by: [facility] NURSING PROG HNO ID: [id number] Author: Dipti Crowley, RN Service: Nursing Author Type: Registered Nurse Type: Nursing Progress Note Filed: 12/26/2021 5:25 PM Note Text: Nursing Progress Note Patient Name: Mary Leal Patient Location: [address] __ Daily Note: Call discontinued as directed in orders. 700cc output from call. 250cc NS instilled and then call catheter removed. Patient assisted to BSC and voided 200cc pink tinged urine. Patient assisted back to bed, not wanting to go to chair. Call light in reach. This note was completed by: [facility] Basic Metabolic Panlon 12-25 Anion gap [Moles/Vol] 9 mmol/L Normal 9-18 [facility] Comment on above: Performed By: #### B MP #### [place] [phone] Calcium [Mass/Vol] 8.5 mg/dL Normal 8.5-10.5 [facility] Comment on above: Performed By: #### B MP #### [place] [address] Chloride [Moles/Vol] 104 mmol/L Normal 98-110 [facility] Comment on above: Performed By: #### B MP #### [place] [phone] CO2 [Moles/Vol] 28 mmol/L Normal 23-32 [facility] Comment on above: Performed By: #### B MP #### [place] [address] Creatinine [Mass/Vol] 0.72 mg/dL Normal 0.70-1.40 [facility] Comment on above: Performed By: #### B MP #### [place] [phone] [place] [address] eGFR- Amer. >60 Normal >59 [facility] Comment on above: Performed By: #### B MP #### [place] [phone] eGFR-All Other Races >60 Normal >59 [facility] Comment on above: Result Comment: eGFR [...] [email or web address]_[email or web address]. Performed By: #### B MP #### [place] [phone] Glucose [Mass/Vol] 91 mg/dL Normal 65-100 [facility] Comment on above: Performed By: #### B MP #### [place] [phone] Potassium [Moles/Vol] 4.0 mmol/L Normal 3.5-5.0 [facility] Comment on above: Performed By: #### B MP #### [place] [phone] Sodium [Moles/Vol] 141 mmol/L Normal 132-148 [facility] Comment on above: Performed By: #### B MP #### [facility] [address] [place] [address] Urea nitrogen [Mass/Vol] 12 mg/dL Normal 8-25 [facility] Comment on above: Performed By: #### B MP #### [facility] [address] [place] [address] CASE MGT INIT ASSESon 2021 CASE MGT INIT ASSES HNO ID: [id number] Author: TITO Whitt Service: ? Author Type: Clothes Drier Assembler Type: Care Mgt Initial Assessment Filed: 12/25/2021 11:43 AM Note Text: CARE MANAGEMENT: ASSESSMENT AND DISCHARGE PLAN SERVICE DATE: December 25, 2021 SERVICE TIME: 11:39 AM PRIMARY CARE PHYSICIAN: Eliceo Gómez DO ADMISSION STATUS: Inpatient Needs Prior to Discharge: Facility or Agency Choices;Home Care Order MEDICAL: PARAMOUNT ADVANTAGE MEDICAID Patient/Compliance Nurse Stated Goals: To have reduction in symptoms Health Insurance: [facility] Issues Impacting Discharge Plan: None Last Discharge Date: 10/14/20 Is this Within the Past 30 days? Last discharge within 30 days: No Advance Directive: Current Advance Directive: Health Care Power of Senior Electronics Engineer In Chart: No Health LiteracyHow often do [...] Completely I feel financially burdened by my cff-ur-emvybh expenses for my prescription medication:: 0 - Disagree Completely Risk Score: 0 Patient is categorized as: Low risk < 2 Are you interested in bedside delivery of your medications? Yes Is Patient Psychosocially Complex?: No ASSESSMENT AND PLAN: Medical Needs: Medical Needs: None Psychosocial Needs: Psychosocial Needs: None FREEDOM OF CHOICE EXPLAINED: [place] of Choice Given: Yes Level of Care Discussed: Home Care Financial Disclosure Provided: Yes [facility] Provider List: Home Care Provider list within the patient's requested geographic area shared with the patient/family: Yes within: 15 miles of zip code: [facility] Quality and resource use metrics shared with [...] bedside with pt during assessment. Charo Obando [phone]. Home care referrals sent. Daughter to transport at time of discharge. SIGNATURE: TITO Whitt PATIENT NAME: Mary Leal DATE: December 25, 2021 TIME: 11:39 AM PAGER/CONTACT #: [phone] Normal [facility] CBC and Differentialon 12-25 Abs Baso 0.03 k/uL Normal <0.11 [facility] Comment on above: Performed By: #### 5 7021-8 #### [facility] CLIA [id number] [address] [place] [address] [place] Abs [place] 0.45 k/uL Normal <0.87 [facility] Comment on above: Performed By: #### 5 7021-8 #### [facility] CLIA [id number] [address] [place] [address] [place] Abs Neut 3.85 k/uL Normal 1.45-7.50 [facility] Comment on above: Performed By: #### 5 7021-8 #### [facility] CLIA [id number] [address] [place] [address] [place] Absolute nRBC <0.01 Normal <0.01 [facility] Comment on above: Performed By: #### 5 7021-8 #### [facility] CLIA [id number] [address] [place] [address] [place] Basophils/100 WBC (Bld) 0.5 % Normal [facility] Comment on above: Performed By: #### 5 7021-8 #### [facility] CLIA [id number] [address] [place] [address] [place] DTYPE Auto Diff Normal [facility] Comment on above: Performed By: #### 5 7021-8 #### [facility] CLIA [id number] [address] [place] [address] [place] Eosinophils (Bld) [#/Vol] 0.14 10*3/uL Normal <0.46 [facility] Comment on above: Performed By: #### 5 7021-8 #### [facility] CLIA [id number] [address] [place] [address] [place] Eosinophils/100 WBC (Bld) 2.3 % Normal [facility] Comment on above: Performed By: #### 5 7021-8 #### [facility] CLIA [id number] [address] [place] [address] [place] Erythrocyte distribution width (RBC) [Ratio] 11.6 % Normal 11.5-15.0 [facility] Comment on above: Performed By: #### 5 7021-8 #### [facility] CLIA [id number] [address] [place] [address] [place] Hematocrit (Bld) [Volume fraction] 35.2 % Low 36.0-46.0 [facility] Comment on above: Performed By: #### 5 7021-8 #### [facility] CLIA [id number] [address] [place] [address] [place] Hemoglobin (Bld) [Mass/Vol] 11.6 g/dL Normal 11.5-15.5 [facility] Comment on above: Performed By: #### 5 7021-8 #### [facility] CLIA [id number] [address] [place] [address] [place] Lymphocytes (Bld) [#/Vol] 1.47 10*3/uL Normal 1.00-4.00 [facility] Comment on above: Performed By: #### 5 7021-8 #### [facility] CLIA [id number] [address] [place] [address] Lymphocytes/100 WBC (Bld) 24.7 % Normal [facility] Comment on above: Performed By: #### 5 7021-8 #### [facility] CLIA [id number] [address] [place] [address] [place] MCH 29.5 pG Normal 26.0-34.0 [facility] Comment on above: Performed By: #### 5 7021-8 #### [facility] CLIA [id number] [address] [place] [address] [place] MCHC (RBC) [Mass/Vol] 33.0 g/dL Normal 30.5-36.0 [facility] Comment on above: Performed By: #### 5 7021-8 #### [facility] CLIA [id number] [address] [place] [address] [place] MCV (RBC) [Entitic vol] 89.6 fL Normal 80.0-100.0 [facility] Comment on above: Performed By: #### 5 7021-8 #### [facility] CLIA [id number] [address] [place] [address] [place] Monocytes/100 WBC (Bld) 7.6 % Normal [facility] Comment on above: Performed By: #### 5 7021-8 #### [facility] CLIA [id number] [address] [place] [address] [place] Neutrophils/100 WBC (Bld) 64.9 % Normal [facility] Comment on above: Performed By: #### 5 7021-8 #### [facility] CLIA [id number] [address] [place] [address] [place] NRBCs 0.0 /100 WBC Normal 0 [facility] Comment on above: Performed By: #### 5 7021-8 #### [facility] CLIA [id number] [address] [place] [address] [place] Platelet mean volume (Bld) [Entitic vol] 9.0 fL Normal 9.0-12.7 [facility] Comment on above: Performed By: #### 5 7021-8 #### [facility] CLIA [id number] [address] [place] [address] [place] Platelets (Bld) [#/Vol] 271 10*3/uL Normal 150-400 [facility] Comment on above: Performed By: #### 5 7021-8 #### [facility] CLIA [id number] [address] [place] [address] [place] RBC (Bld) [#/Vol] 3.93 10*6/uL Normal 3.90-5.20 [facility] Comment on above: Performed By: #### 5 7021-8 #### [facility] CLIA [id number] [address] [place] [address] [place] WBC (Bld) [#/Vol] 5.96 10*3/uL Normal 3.70-11.00 [facility] Comment on above: Performed By: #### 5 7021-8 #### [facility] CLIA [id number] [address] [place] [address] [place] CONSULTon 12-25-2021 CONSULT HNO ID: [id number] Author: Tri Kowalski APRN.HOUSE BUILDER Service: Wound/Ostomy Author Type: Nurse Practitioner Type: Consults Filed: 12/25/2021 11:37 AM Note Text: OSTOMY SERVICE CONSULT INNOVATION ANALYST SERVICE DATE: 12/25/2021 SERVICE TIME: 1015 Consultation [...] revision - VAGINAL HYSTERECTOMY 2014 [facility] 10/2015 for endometriosis, has [...] mL 20 mEq INTRAVENOUS PRN - HYDROmorphone LIBRARY PAGE 0.5 mg/mL in NaCl 0.9% 100 mL [...] with h (more content not included)... Normal [facility] NURSING PROGon 12-25-2021 NURSING PROG HNO ID: [id number] Author: Beto Ford RN Service: ? Author Type: Registered Nurse Type: Nursing Progress Note Filed: 12/25/2021 6:12 AM Note Text: Nursing Progress Note Patient Name: Mary Leal Patient Location: [place] [address]/[place] [address] __ Daily Note: Pt has been complaining [...] This note was completed by: Beto Ford [facility] NURSING PROG HNO ID: [id number] Author: Marilyn Henning RN Service: ? Author Type: Registered Nurse Type: Nursing Progress Note Filed: 12/25/2021 7:01 PM Note Text: Nursing Progress Note Patient Name: Mary Leal Patient Location: [place] [address] __ Daily Note: 0930 Pt AANDOx3. Lap sites intact. ABD tender. LIBRARY PAGE pump running. Stoma beefy red, dark brown liquid output. Pt stated that the eye pressure felt overnite has resolved. Call remains in place until OBGYN sees pt 12/26. Pt requesting PO pain medication. 1100 Pt up to chair. [address] Ontiveros bedside. 5mg oxy ordered q4 PRN. This note was completed by: Marilyn Henning [facility] ANES POSTPROC EVALon 022 ANES POSTPROC EVAL HNO ID: [id number] Author: Charisse Aggarwal MD Service: Anesthesiology Author Type: Anesthesiologist Type: Anesthesia Postprocedure Evaluation Filed: 12/24/2021 4:17 PM Note Text: POST ANESTHESIA EVALUATION NOTE : 1970 Procedure Summary Date: 12/24/21 Room / Location: OR / OR Anesthesia Start: 810 Anesthesia Stop: 141 Procedures: PROCTOPEXY LAPAROSCOPIC (N/A Abdomen) ANTERIOR COLPORRHAPHY [...] December 24, 2021 TIME: 4:17 PM CSN: [id number] [facility] ANES PRE-OPon 12-24-2021 ANES PRE-OP HNO ID: [id number] Author: Chayito Ojeda MD Service: Anesthesiology Author [...] December 24, 2021 TIME: 7:27 AM CSN: [id number] [facility] BRIEF OP NOTon 12-24-2021 BRIEF OP NOT HNO ID: [id number] Author: Jenifer Ayala MD Service: Colorectal Author Type: Fellow Type: Brief Op Note Filed: 12/24/2021 12:16 PM Note Text: BRIEF OPERATIVE NOTE - COLORECTAL SURGERY Log ID: [id number] Surgery/Procedure Date: 12/24/2021 Incision/Procedure Start Time: 8:50 AM Incision Close/Procedure End Time: Surgeon(s) and Import/Export Specialist(s): Surgeon(s) and Role: Panel 1: * Mary [...] December 24, 2021 TIME: 12:10 PM Normal [facility] NURSING PROGon 12-24-2021 NURSING PROG O ID: [id number] Author: Dianelys Lopez RN Service: Nursing Author [...] (RECOMMENDATION): None Electronically Signed By: Dianelys Lopez [facility] NURSING [facility] O ID: [id number] Author: Marilyn Henning RN Service: ? Author Type: Registered Nurse Type: Nursing Progress Note Filed: 12/24/2021 4:19 PM Note Text: Nursing Progress Note Patient Name: Mary Leal Patient Location: [place] [address] __ Transfer Note: Patient transferred into room/unit PK3- in stable condition. Actions taken: No futher actions taken at this time. Will continue to monitor and check with patient. This note was completed by: Marilyn Henning [id number] Author: Marilyn Henning RN Service: ? Author Type: Registered Nurse Type: Nursing Progress Note Filed: 12/24/2021 6:36 PM Note Text: Nursing Progress Note Patient Name: Mary Leal Patient Location: [place] [address]/[id number] __ Daily Note: 1816 Pt arrived on floor with 100.2F temperature. Scheduled tylenol administered. Temperature 98.6 at 1816. Surgical incisions GO GO DANCER with glue, intact. Ostomy beefy red, producing sweat. Call remains in place. Pt Educated on LIBRARY PAGE pump usage. Daughter bedside. Bed low and locked. This note was completed [facility]24-[facility]21 OPERATIVE NO HNO ID: [id number] Author: Mary Obrien MD Service: Colorectal Author Type: Physician Type: Operative Report Filed: 12/24/2021 12:34 PM Note Text: COLON AND RECTAL SURGERY OPERATIVE REPORT PATIENT NAME: Mary Leal ADMISSION DATE: 12/24/2021 LOG ID: [id number] SURGERY/PROCEDURE DATE: 12/24/2021 INCISION/PROCEDURE START TIME: 8:50 AM INCISION CLOSE/PROCEDURE END TIME: AGE: [age] year old SEX: female SURGEON(S)/PROCEDURALI ST(S) AND APRICOT PACKER(S): Surgeon(s) and Role: Panel 1: * Mary [...] port site. This was ligated with a [id number] Vicryl suture and was confirmed to be [...] [facility] OPERATIVE NO HNO ID: [id number] Author: Pam Wang MD Service: Urogynecology Author Type: Physician Type: Operative Report Filed: 12/28/2021 10:03 AM Note Text: OPERATIVE/PROCEDURE REPORT LOG ID: [id number] SURGERY/PROCEDURE DATE: 12/24/2021 INCISION/PROCEDURE START TIME: 8:50 AM INCISION CLOSE/PROCEDURE END TIME: 1:50 PM SURGEON(S)/PROCEDURALI ST(S) AND APRICOT PACKER(S): Surgeon(s) and Role: Panel 1: * Mary [...] of the (more content not included)... Normal [facility] Type and SCR (30D)on 022 ABO/RH(D) Positive [facility] Comment on above: Performed By: #### T SCR30 ####[address] [phone] Confirm Blood Typeon 021 ABO/RH(D) Positive [facility] Comment on above: Performed By: #### C ONABO ####[address] [phone] Performed By: #### T SCR30 ####[address] [phone] Nonvisit Note - PTon 021 Nonvisit Note - PT Chart reviewed with eval prepped for scheduled eval. KK Normal [facility] Consenton 01-08-2021 Consent [id number]#1. 00CD:127 [facility] Coding Summary.on 01-06-2021 Coding Summary. CODING DATE: 01/06/2021 FINAL [facility] STATUS: Home (Routine DC) PAYOR: Medicaid EAPG [...] Eileen Scott Date Saved: 01/06/2021 09:01 am [facility] Consent for Procedure/Surger yon 01-04-2021 Consent for Procedure/Surgery [id number]#1. 00CD:127 [facility] Consent for Procedure/Surgery [id number]#1. 00CD:127 [facility] Consent for Treatmenton Consent for Treatment [id number] [id number]#1.0 0CD:127 [facility] Discharge Instructionson Discharge Instructions [id number]#1. 00CD:127 [facility] Inpatient Patient Summaryon 01-04-2021 Inpatient Patient Summary [address] [address] Clinical Summary Person Information Name: MARY LEAL Age: 50 Years : 1970 Sex: Female PCP: Isatu GÓMEZ DO Marital Status: Race: White Ethnicity: Non- or Language: Danish Visit Id: Visit Reason: MIXED INCONTINENCE Speciality: Acuity: Enc Type: Outpatient Med Service: Surgery Arrival: 01/04/2021 12:31:00 Discharge: Dispo Type: Address: [address] [place] [address] [id number] Provider Notes: Diagnosis: Problems Active Decreased bladder [...] This Visit Final Med List: acetaminophen-hydrocod one ([place] 5/325 Tab) By Mouth every 6 hours. [...] Follow up: With: Address: When: Clifford OCONNOR [address] [place] [address], [address], [place] [address] Business (1) Within 2 weeks Comments: Call for followup appointment. Have a great day! Patient Education Information: EU - Cystoscopy with Botox Injection Discharge Instructions (Custom) Normal [facility] IntraOperative Documentson 0 01-04-2021 IntraOperative Documents [id number]#1. 00CD:127 Normal [facility] IntraOperative Documents [id number]#1. 00CD:127 Normal [facility] Main OR Intraoperative Recor don 01-04-2021 Main OR Intraoperative Record IntraOp Document Type FTURO Summary Primary Physician: Clifford OCONNOR MD Finalized Date/Time: 01/04/21 13:27:05 Pt. Name: MARY LEALO.B./Sex: 1970 Female Med Rec #: [id number] Physician: Clifford OCONNOR MD Financial #: [id number] Pt. Type: O Room/Bed: / Admit/Disch: 01/04/21 12:31:00 - Institution: Case Times FTURO Entry 1 Patient Times In Room 01/04/21 13:07:00 Out Room 01/04/21 13:27:00 Procedure Times Start 01/04/21 13:19:00 Stop 01/04/21 13:23:00 Anesthesia Times Last Modified By: Niecy Tran RN 01/04/21 13:27:01 Case Attendance FTURO Entry 1 Entry 2 Entry 3 Case Attendee Clifford OCONNOR MD MAID CLEANING COOKING, Akin Mejias CST, Debi Chand Role Performed Surgeon - Primary Scrub - Primary Scrub - Primary Time In 01/04/21 13:07:00 01/04/21 13:07:00 01/04/21 13:07:00 Time Out 01/04/21 13:27:00 01/04/21 13:27:00 01/04/21 13:27:00 Procedure CYSTOSCOPY LOCAL BOTOX CYSTOSCOPY LOCAL BOTOX CYSTOSCOPY LOCAL BOTOX INJECTION(.) INJECTION(.) INJECTION(.) Comments PRECEPTING ORIENTING Last Modified By: Chelsea GAMBINO, Niecy Tran RN, Niecy Vargas RN 01/04/21 13:27:02 01/04/21 13:27:02 01/04/21 13:27:02 Entry 4 Case Attendee Niecy Tran RN Role Performed Recovery Coach - Primary Time In 01/04/21 13:07:00 Time Out 01/04/21 13:27:00 Procedure CYSTOSCOPY LOCAL BOTOX INJECTION(.) Comments Last Modified By: Niecy Tran RN 01/04/21 13:27:02 Surgical Procedures FTURO Entry 1 Procedure Description Procedure CYSTOSCOPY LOCAL BOTOX Modifiers . INJECTION Surgeon Description CYSTOSCOPY BOTOX 50 UNITS LOT NUMBER [id number] EXP DATE 08/2023 Primary Procedure Yes Primary [...] Verified (If Participants Akin Dalton CST, Applicable) Randell PECK, Chelsea Sarkar RN, Kimberly [...] Niecy Tran RN 01/04/21 13:27 Normal [facility] Main OR Preoperative Recordo n 01-04-2021 Main OR Preoperative Record Holding Area Document Type FTURO Summary Primary Physician: Clifford OCONNOR MD Finalized Date/Time: 01/04/21 13:05:55 Pt. Name: MARY LEAL /Sex: 1970 Female Med Rec #: [id number] Physician: Clifford OCONNOR MD Financial #: [id number] Pt. Type: O Room/Bed: / Admit/Disch: 01/04/21 [...] Niecy Tran RN Document Signatures Signed By: Joselyn LYNAnnmarie 01/04/21 12:46 Niecy Tran RN 01/04/21 13:05 Normal [facility] Operative Reporton Operative Report Patient: MARY LEAL [...] F/U in two weeks. . Normal [facility] Comment on above: Result Comment: Elec tronically Signed By: Clifford OCONNOR MD\.br\Date and Time Signed: 01/04/21 13:30 EST Outpatient Surgery Discharge Instructionon 01-04-2021 Outpatient Surgery Discharge Instruction [address] [address] Patient Discharge Instructions PERSON INFORMATION [...] Follow up: With: Address: When: Clifford OCONNOR [address] [place] [address], [address], [place] [phone] [facility] (1) Within 2 weeks Comments: [...] Date You may receive a survey from [employer] asking you to rate your care experience. Your feedback is important and will help us understand what we do well and how we can improve the quality of care we provide to you, your loved ones and our community. It?s an honor to serve you. Thank you for choosing [facility] Normal [facility] PT - Assessmentson 1 PT - Assessments [id number]#1. 00CD:127 Normal [facility] Ambulatory Clinical Summaryo n 11-11-2020 Ambulatory Clinical Summary {[id number]}CD:[id number] Normal [facility] Patient Educationon 11-11-19 21 Patient Education [...] urinary (more content not included)... Normal [facility] U[facility] Phone Visit- Telehealth HPI [...] only communication with the patient located at [address] [place] [address] , with no one else. If it [...] Francie [place], Dawna Feldman [address] [place] [address]- [phone] Additional Instructions: Patient Education Urodynamic Testing Overactive [...] stream His (more content not included)... Normal [facility] Comment on above: Result Comment: Elec tronically Signed By: Dawna Marmolejo MD\.br\Date and Time Signed: 11/03/20 11:59 EST\.br\Electronically Co-Signed By: Christy Gill MA\.br\Date and Time Co-Signed: 10/21/20 12:01 EST Coding Summary.on 10-28-2020 Coding Summary. CODING DATE: 10/28/2020 FINAL [facility] STATUS: Home (Routine DC) PAYOR: Medicaid EA [...] Eileen Scott Date Saved: 10/28/2020 11:17 am [facility] Ambulatory Clinical Summaryo n 10-27-2020 Ambulatory Clinical Summary {[id number]}CD:[id number] [facility] Consent for Procedure/Surger yon 10-27-2020 Consent for Procedure/Surgery [id number] .00CD:127 [facility] Consent for Treatmenton 10-07 Consent for Treatment [id number]#1.0 0CD:127 [facility] IntraOperative Documentson 1 12-28-2019 IntraOperative Documents [id number] .00CD:127 [facility] Patient Educationon 10-21-20 20 Patient Education [...] lab or depar (more content not included)... [facility] PT - Assessmentson 0 PT - Assessments [id number]#1. 00CD:127 [facility] Nonvisit Note - PTon 020 Nonvisit Note - PT Per voicemail: she needs to cancel all of her PT due to personal reasons. KK [facility] Provider Letteron 09-09-2020 Provider Letter September 09, 2020 MARY LEAL [address] [place] [address] MARY LEAL 1970 Dear Mary Leal, You [...] appreciate your understanding. Sincerely, [facility] [address] [facility], [address] [place] [address] [facility] PT - Assessmentson 0 PT - Assessments [id number]. 00CD:127 [facility] PT - Assessments [id number]. 00CD:127 [facility] PT - Assessmentson 0 PT - Assessments [id number]. 00CD:127 [facility] PT - Consentson 08-31-2020 PT - Consents [id number]. 00CD:127 [facility] Pre-Certification Formon Pre-Certification Form [id number] 0CD:127 [facility] Pre-Certification Form [id number] 0CD:127 [facility] Consent for Procedure/Surger yon 08-26-2020 Consent for Procedure/Surgery [id number] 0CD:127 Normal [facility] Ambulatory Clinical Summaryo n 08-25-2020 Ambulatory Clinical Summary {[id number]}CD:[id number] Normal [facility] Patient Educationon 08-25-20 Patient Education Family [...] an extended amount of time. Only take cqho-cya-yaoadgq or prescription medicines for pain, discomfort, or [...] Document Reviewed: 09/07/2009 ExitCare? Patient Information ?2013 [employer] [facility] Urology Office/Clinic Noteon 08-25-2020 Urology Office/Clinic [...] Alzheimer's disease: Mother. Hypertension: Mother and Father. [facility] Comment on above: Result Comment: Elec tronically Signed By: Francie BENSON, Dawna Feldman\.br\Date and Time Signed: 08/25/20 10:06 EDT\.br\Electronically Co-Signed By: Mary Hager\.br\Date and Time Co-Signed: 08/25/20 09:51 EDT Coding Summary.on 08-21-2020 Coding Summary. CODING DATE: 08/21/2020 FINAL [facility] STATUS: PAYOR: Medicaid EA DESCRIPTION [id number] PHYSICAL [...] Raymond CphT Date Saved: 08/21/2020 10:42 am [facility] Consenton 08-21-2020 Consent [id number] 0CD:127 [facility] Ambulatory Clinical Summaryo n 08-19-2020 Ambulatory Clinical Summary {[id number]}CD:[id number] Normal [facility] Ambulatory Clinical Summary {[id number] }CD:[id number] Normal [facility] Nonvisit Note - PTon 020 Nonvisit Note - PT Chart reviewed for scheduled eval. KK Normal [facility] Patient Educationon 08-19-20 20 Patient Education [...] urinary (more content not included)... Normal [facility] Urology Phone Visit- Telehea [facility] 08-19-2020 Urology Phone Visit- Telehealth Chief Complaint [...] only communication with the patient located at [facility] [phone], with no one else. If it is [...] questions/concerns were discussed. Pt. acknowledges understanding. Ordered: [facility] External Ambulatory Referral Urology Procedure Order 2. Dysuria (R30.0: Dysuria) Moderate. Ordered: [facility] External Ambulatory Referral Urology Procedure Order 3. Feeling of incomplete bladder emptying (R39.14: Feeling of incomplete bladder emptying) Pt. does not feel that she is emptying. Ordered: [facility] External Ambulatory Referral Urology Procedure Order 4. Weak urine stream (R39.12: Poor urinary stream) Weak stream w/ moderate hesitancy. Ordered: [facility] External Ambulatory Referral Urology Procedure Order 5. [...] Will order Local anesthesia. ABX sent to [facility] in [place]. Ordered: [facility] External Ambulatory Referral Urology Procedure Order 6. [...] changes. Patient who (more content not included)... [facility] Comment on above: Result Comment: Elec tronically Signed By: Francie BENSON, Dawna Feldman\.br\Date and Time Signed: 08/19/20 08:53 EDT\.br\Electronically Co-Signed By: Christy Gill MA\.br\Date and Time Co-Signed: 08/19/20 08:44 EDT Coding Summary.on 08-12-2020 Coding Summary. CODING DATE: 08/12/2020 FINAL [facility] STATUS: Home (Routine DC) PAYOR: Medicaid EAPG [...] Demi Fried Date Saved: 08/12/2020 09:42 am [facility] Formson 08-11-2020 Forms [id number]#1.0 0CD:127 [facility] C Urineon 08-09-2020 Bacteria identified Cx [...] Locations R1: This test was performed at: [facility], [address] [place] [address], [facility]- , , [facility] Comment on above: Performed By: #### 2 [id number] ####[facility] [address] [place] [address] Ambulatory Clinical Summaryo n 08-07-2020 Ambulatory Clinical Summary {[id number]}CD:[id number] [facility] Patient Educationon 08-07-20 20 Patient Education [...] Document Reviewed: 07/18/2013 ExitCare? Patient Information ?2013 [employer] [facility]. [facility] Medicine Overactive Bladder, Adult The bladder [...] your (more content not included)... 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 Normal [facility] Comment on above: Result Comment: Elec tronically Signed By: Dawna Marmolejo MD\.br\Date and Time Signed: 08/07/20 15:54 EDT\.br\Electronically Co-Signed By: Radha Lopez MA\.br\Date and Time Co-Signed: 08/07/20 15:44 EDT Social History Date Type Detail Facility Start: 10-23-2023 End: 01-10-2024 Alcohol intake Ex-drinker (finding) [facility] Start: 06-05-2023 End: 06-05-2023 Tobacco smoking status NHIS Smoker (finding) [facility] Start: 01-21-2022 End: 07-26-2022 Exposure to SARS-CoV-2 (event) Not sure [facility] Start: 01-04-2022 End: 04-12-2024 Alcohol intake Lifetime non-drinker (finding) [facility] Start: 07-03-2021 Sexual orientation Heterosexual (fin ding) [facility] Start: 10-08-2020 End: 03-06-2024 Tobacco smoking status KSIS Never smoked tobacco [facility] Start: 10-08-2020 End: 03-06-2024 Tobacco use and exposure Smokeless tobacco non-user [facility] Start: 10-08-2020 History SDOH Alcohol Frequency 1 [facility] Start: 10-08-2020 End: 04-12-2024 Sex Assigned At [facility] Start: 10-08-2020 End: 04-12-2024 No alcohol use No alcohol use [facility] Comment on above: 3 TEA WEEK; Start: 07-28-2020 Gender identity Identifies as female gender (finding) [facility] Start: 1970 Sex Assigned At Female C [facility] Start: 1970 Sex Assigned At Not on file [facility] [facility] How often to you hav e a drink containing alcohol? Never [facility] Average Number of Drinks Not on file [facility] Vital Signs Date Time Vital Sign Value Performing Clinician Facility 04-12-2024 13:10-0400 Diastolic blood pressure 75 mm[Hg] Milagros Franco MD, PhD Work Phone: [facility] 04-12-2024 13:10-0400 Heart rate 62 /min Mialgros Franco MD, PhD Work Phone: [facility] 04-12-2024 13:10-0400 Respiratory rate 20 /min Milgaros Franco MD, PhD Work Phone: [facility] 04-12-2024 13:10-0400 SaO2% (BldA) [Mass fraction] 100 % Milagros Franco MD, PhD Work Phone: [facility] 04-12-2024 13:10-0400 Systolic blood pressure 121 mm[Hg] Milagros Franco MD, PhD Work Phone: [facility] 04-12-2024 11:35-0400 Body height 162.6 cm Milagros Franco MD, PhD Work Phone: [facility] 04-12-2024 11:35-0400 Body mass index (BMI) [Ratio] 25.75 kg/m2 Milagros Franco MD, PhD Work Phone: [facility] 04-12-2024 11:35-0400 Body temperature 97.9 [degF] Milagros Franco MD, PhD Work Phone: [facility] 04-12-2024 11:35-0400 Body weight 68.04 kg Milagros Franco MD, PhD Work Phone: [facility] 02-27-2024 09:48-0400 Body height 162.6 cm Flower Lopez INNOVATION ANALYST.HOUSE BUILDER Work Phone: [facility] 02-27-2024 09:48-0400 Body mass index (BMI) [Ratio] 26.45 kg/m2 Flower Lopez INNOVATION ANALYST.HOUSE BUILDER Work Phone: [facility] 02-27-2024 09:48-0400 Body weight 69.9 kg Flower Lopez INNOVATION ANALYST.HOUSE BUILDER Work Phone: [facility] 02-27-2024 09:48-0400 Diastolic blood pressure 93 mm[Hg] Flower Jessica INNOVATION ANALYST.HOUSE BUILDER Work Phone: [facility] 02-27-2024 09:48-0400 Heart rate 62 /min Flower Jessica INNOVATION ANALYST.HOUSE BUILDER Work Phone: [facility] 02-27-2024 09:48-0400 Systolic blood pressure 146 mm[Hg] Flower Jessica INNOVATION ANALYST.HOUSE BUILDER Work Phone: [facility] 01-25-2024 09:05-0400 Body height 162.6 cm [employer] Work Phone: [facility] 01-25-2024 09:05-0400 Body weight 68.04 kg [employer] Work Phone: [facility] 01-25-2024 09:05-0400 Heart rate 84 /min [employer] Work Phone: [facility] 01-25-2024 09:05-0400 Respiratory rate 16 /min [employer] Work Phone: [facility] 01-10-2024 12:40-0500 Body height 162.6 cm Cullen Dawkins MD Work Phone: [facility] 01-10-2024 12:40-0500 Body mass index (BMI) [Ratio] 27.89 kg/m2 Cullen Dawkins MD Work Phone: [facility] 01-10-2024 12:40-0500 Body weight 73.7 kg Cullen Dawkins MD Work Phone: [facility] 12-20-2023 12:21-0500 Body height 162.[address] [facility] [address] [facility] 12-20-2023 12:21-0500 Body mass index (BMI) [Ratio] 28.38 kg/m2 [facility] 12-20-2023 12:21-0500 Body temperature 98.2 [degF] [facility] 12-20-2023 12:21-0500 Body weight [address] [facility] [address] [facility] 12-20-2023 12:21-0500 Diastolic blood pressure 90 mm[Hg] [facility] 12-20-2023 12:21-0500 Heart rate 72 /min [facility] 12-20-2023 12:21-0500 Respiratory rate 18 /min [facility] 12-20-2023 12:21-0500 SaO2% (BldA) [Mass fraction] 96 % [facility] 12-20-2023 12:21-0500 Systolic blood pressure 138 mm[Hg] [facility] 11-23-2023 08:14-0500 Body height 162.56 cm DO Shannon Gómez Work Phone: [facility] 11-23-2023 08:14-0500 Body weight 70.3 kg DO Shannon Gómez Work Phone: [facility] 08-12-2023 07:08-0400 Diastolic blood pressure 65 mm[Hg] Lex Salmon MD Work Phone: [facility] 08-12-2023 07:08-0400 Heart rate 77 /min Lex Salmon MD Work Phone: [facility] 08-12-2023 07:08-0400 SaO2% (BldA) [Mass fraction] 98 % Lex Salmon MD Work Phone: [facility] 08-12-2023 07:08-0400 Systolic blood pressure 132 mm[Hg] Lex Salmon MD Work Phone: [facility] 08-12-2023 06:48-0400 Respiratory rate 13 /min Lex Salmon MD Work Phone: [facility] 08-12-2023 00:25-0400 Body height 162.6 cm Lex Salmon MD Work Phone: [facility] 08-12-2023 00:25-0400 Body mass index (BMI) [Ratio] 28.01 kg/m2 Lex Salmon MD Work Phone: [facility] 08-12-2023 00:25-0400 Body temperature 97.59 [degF] Lex Salmon MD Work Phone: [facility] 08-12-2023 00:25-0400 Body weight 74.03 kg Lex Salmon MD Work Phone: [facility] 07-31-2023 14:27-0400 Body height 162.6 cm Nelsy Chávez INNOVATION ANALYST.HOUSE BUILDER Work Phone: [facility] 07-31-2023 14:27-0400 Body weight 69.85 kg Nelsy Chávez INNOVATION ANALYST.HOUSE BUILDER Work Phone: [facility] 07-31-2023 14:27-0400 Diastolic blood pressure 96 mm[Hg] Nelsy Chávez INNOVATION ANALYST.HOUSE BUILDER Work Phone: [facility] 07-31-2023 14:27-0400 Heart rate 76 /min Nelsy Chávez INNOVATION ANALYST.HOUSE BUILDER Work Phone: [facility] 07-31-2023 14:27-0400 Systolic blood pressure 136 mm[Hg] Nelsy Philipped INNOVATION ANALYST.HOUSE BUILDER Work Phone: [facility] 06-13-2023 10:37-0400 Body height 162.56 cm Eliceo Gómez Work Phone: [facility] [address] DO Work Phone: 06-13-2023 10:37-0400 Body mass index (BMI) [Ratio] 27.46 kg/m2 Eliceo Gómez Work Phone: [facility] [address] DO Work Phone: 06-13-2023 10:37-0400 Body surface area Derived from formula 1.78 m2 Eliceo Gómez Work Phone: [facility] [facility] [address] DO Work Phone: 06-13-2023 10:37-0400 Body weight 72.58 kg Eliceo Gómez Work Phone: [facility] [facility] [address] DO Work Phone: 06-13-2023 10:37-0400 Diastolic blood pressure 70 mm[Hg] Eliceo Gómez Work Phone: [facility] [facility] [address] DO Work Phone: 06-13-2023 10:37-0400 Heart rate 70 /min Eliceo Gómez Work Phone: [facility] [facility] [address] DO Work Phone: 06-13-2023 10:37-0400 Systolic blood pressure 100 mm[Hg] Eliceo Gómez Work Phone: [facility] [facility] [address] DO Work Phone: 06-13-2023 10:37-0400 11 1 Eliceo Gómez Work Phone: [facility] [facility] [address] DO Work Phone: Comment on above: PHQ-9 TS 06-05-2023 13:23-0400 Diastolic blood pressure 68 mm[Hg] DO Shannon Szymanskijerometomasa Work Phone: [facility] 06-05-2023 13:23-0400 Heart rate 72 /min DO Shannon Szymanskijerometomasa Work Phone: [facility] 06-05-2023 13:23-0400 Respiratory rate 18 /min DO Shannon Szymanskijerometomasa Work Phone: [facility] 06-05-2023 13:23-0400 SaO2% (BldA) [Mass fraction] 97 % DO IsatuReno Parish Stephonleigha Work Phone: [facility] 06-05-2023 13:23-0400 Systolic blood pressure 129 mm[Hg] DO Shannon Szymanskileigha Work Phone: [facility] 06-05-2023 09:32-0400 Body height 162.56 cm DO IsatuReno Parish Gómez Work Phone: [facility] 06-05-2023 09:32-0400 Body weight 73.9 kg DO Shannon Gómez Work Phone: [facility] 06-05-2023 09:31-0400 Body temperature 97.5 [degF] DO Shannon Gómez Work Phone: [facility] 01-16-2023 13:18-0400 Body height 162.6 cm [facility] 01-16-2023 13:18-0400 Body weight 68.04 kg [facility] 11-21-2022 08:00-0500 Body height 162.6 cm [facility] 2 Work Phone: [facility] 11-21-2022 08:00-0500 Body weight 64.86 kg [facility] 2 Work Phone: [facility] 10-11-2022 10:08-0500 Body height 162.6 cm Isra Masters DO Work Phone: [facility] 10-11-2022 10:08-0500 Body weight 78.02 kg Isra Galarzae DO Work Phone: [facility] 10-11-2022 10:08-0500 Diastolic blood pressure 97 mm[Hg] Isra Masters DO Work Phone: [facility] 10-11-2022 10:08-0500 Heart rate 89 /min Isra Masters DO Work Phone: [facility] 10-11-2022 10:08-0500 Systolic blood pressure 141 mm[Hg] Isra Masters DO Work Phone: [facility] 10-10-2022 14:30-0500 Body height 162.56 cm Beto Cartagena Other [employer] Other 10-10-2022 14:30-0500 Body mass index (BMI) [Ratio] 28.66 kg/m2 Beto Cartagena Other [employer] Other 10-10-2022 14:30-0500 Body weight 75.75 kg Beto Cartagena Other [employer] Other 07-26-2022 11:13-0400 Body height 162.6 cm Mary Obrien MD Work Phone: [facility] 07-26-2022 11:13-0400 Body temperature 97.5 [degF] Mary Obrien MD Work Phone: [facility] 07-26-2022 11:13-0400 Body weight 77.56 kg Mary Obrien MD Work Phone: [facility] 07-26-2022 11:13-0400 Diastolic blood pressure 83 mm[Hg] Mary Obrien MD Work Phone: [facility] 07-26-2022 11:13-0400 Heart rate 95 /min Mary Obrien MD Work Phone: [facility] 07-26-2022 11:13-0400 SaO2% (BldA) [Mass fraction] 97 % Mary Obrien MD Work Phone: [facility] 07-26-2022 11:13-0400 Systolic blood pressure 110 mm[Hg] Mary Obrien MD Work Phone: [facility] 05-26-2022 11:45-0400 Body height 162.56 cm Beto Snyder Other [employer] Other 05-26-2022 11:45-0400 Body mass index (BMI) [Ratio] 29.18 kg/m2 Beto Snyder Other [employer] Other 05-26-2022 11:45-0400 Body weight 77.11 kg Beto Snyder Other [employer] Other 05-12-2022 09:06-0400 Diastolic blood pressure 80 mm[Hg] Eilceo Gómez Work Phone: [facility] DO Work Phone: 05-12-2022 09:06-0400 Systolic blood pressure 126 mm[Hg] Eliceo Gómez Work Phone: [facility] DO Work Phone: 05-12-2022 08:57-0400 Body height 162.56 cm Eliceo Gómez Work Phone: [facility] [facility] DO Work Phone: 05-12-2022 08:57-0400 Body mass index (BMI) [Ratio] 29.87 kg/m2 Eliceo Gómez Work Phone: [facility] [address] DO Work Phone: 05-12-2022 08:57-0400 Body surface area Derived from formula 1.84 m2 Eliceo Gómez Work Phone: [facility] [address] DO Work Phone: 05-12-2022 08:57-0400 Body weight 78.93 kg Eliceo Gómez Work Phone: [facility] [address] DO Work Phone: 05-12-2022 08:57-0400 Heart rate 68 /min Eliceo Gómez Work Phone: [facility] [address] DO Work Phone: 05-12-2022 08:57-0400 Systolic blood pressure 130 mm[Hg] Eliceo Gómez Work Phone: [facility] [facility] DO Work Phone: 05-10-2022 12:30-0400 Body height 162.56 cm Allison Arita Other [employer] Other 05-10-2022 12:30-0400 Body mass index (BMI) [Ratio] 29.18 kg/m2 Allison Arita Other [employer] Other 05-10-2022 12:30-0400 Body temperature 97.3 [degF] Allison Arita Other [employer] Other 05-10-2022 12:30-0400 Body weight 77.11 kg Allison Arita Other [employer] Other 05-10-2022 12:30-0400 Respiratory rate 18 /min Allison Arita Other [employer] Other 05-10-2022 12:30-0400 SaO2% (BldA) [Mass fraction] 98 % Allison Arita Other [employer] Other 04-22-2022 12:04-0400 Body height 162.6 cm Jessi Sheets APRN.HOUSE BUILDER Work Phone: [facility] 04-22-2022 12:04-0400 Body weight 77.56 kg Jessi Sheets APRN.CNP Work Phone: [facility] 04-22-2022 12:04-0400 Diastolic blood pressure 68 mm[Hg] Jessi Sheets APRN.HOUSE BUILDER Work Phone: [facility] 04-22-2022 12:04-0400 Heart rate 76 /min Jessi Sheets APRN.HOUSE BUILDER Work Phone: [facility] 04-22-2022 12:04-0400 SaO2% (BldA) [Mass fraction] 98 % Jessi Sheets APRN.HOUSE BUILDER Work Phone: [facility] 04-22-2022 12:04-0400 Systolic blood pressure 104 mm[Hg] Jessi Sheets APRN.HOUSE BUILDER Work Phone: [facility] 03-15-2022 16:30-0400 Body height 162.56 cm Beto Snyder Other [employer] Other 03-15-2022 16:30-0400 Body mass index (BMI) [Ratio] 30.55 kg/m2 Beto Snyder Other [employer] Other 03-15-2022 16:30-0400 Body weight 80.74 kg Beto Snyder Other [employer] Other 03-15-2022 08:36-0400 Body height 162.6 cm Isra Galarzae DO Work Phone: [facility] 03-15-2022 08:36-0400 Body weight 83.01 kg Isra Masters DO Work Phone: [facility] 03-15-2022 08:36-0400 Diastolic blood pressure 87 mm[Hg] Isra Masters DO Work Phone: [facility] 03-15-2022 08:36-0400 Heart rate 85 /min Isra Masters DO Work Phone: [facility] 03-15-2022 08:36-0400 SaO2% (BldA) [Mass fraction] 100 % Isra Masters DO Work Phone: [facility] 03-15-2022 08:36-0400 Systolic blood pressure 133 mm[Hg] Isra Masters DO Work Phone: [facility] 03-14-2022 10:23-0400 Body height 162.6 cm [employer] 4 Work Phone: [facility] 03-14-2022 10:23-0400 Body temperature 97.2 [degF] Pacc 4 Work Phone: [facility] 03-14-2022 10:23-0400 Body weight 83.01 kg Pacc 4 Work Phone: [facility] 03-14-2022 10:23-0400 Diastolic blood pressure 76 mm[Hg] Pacc 4 Work Phone: [facility] 03-14-2022 10:23-0400 Heart rate 74 /min Pacc 4 Work Phone: [facility] 03-14-2022 10:23-0400 Respiratory rate 16 /min Pacc 4 Work Phone: [facility] 03-14-2022 10:23-0400 SaO2% (BldA) [Mass fraction] 98 % Pac 4 Work Phone: [facility] 03-14-2022 10:23-0400 Systolic blood pressure 114 mm[Hg] Pac 4 Work Phone: [facility] 02-18-2022 09:43-0400 Body height 162.6 cm Nelsy Chávez INNOVATION ANALYST.HOUSE BUILDER Work Phone: [facility] 02-18-2022 09:43-0400 Body weight 80.29 kg Nelsy Chávez INNOVATION ANALYST.HOUSE BUILDER Work Phone: [facility] 02-18-2022 09:43-0400 Diastolic blood pressure 70 mm[Hg] Nelsy Chávez INNOVATION ANALYST.HOUSE BUILDER Work Phone: [facility] 02-18-2022 09:43-0400 Systolic blood pressure 110 mm[Hg] Nelsy Chávez INNOVATION ANALYST.HOUSE BUILDER Work Phone: [facility] 02-08-2022 14:52-0400 Body height 162.6 cm Mary Obrien MD Work Phone: [facility] 02-08-2022 14:52-0400 Body weight 83.01 kg Mary Obrien MD Work Phone: [facility] 02-08-2022 14:52-0400 Diastolic blood pressure 76 mm[Hg] Mary Obrien MD Work Phone: [facility] 02-08-2022 14:52-0400 Heart rate 79 /min Mary Obrien MD Work Phone: [facility] 02-08-2022 14:52-0400 SaO2% (BldA) [Mass fraction] 97 % Mary Obrien MD Work Phone: [facility] 02-08-2022 14:52-0400 Systolic blood pressure 113 mm[Hg] Mary Obrien MD Work Phone: [facility] 02-08-2022 11:19-0400 Body weight 83.01 kg Magali Mitchell INNOVATION ANALYST.HOUSE BUILDER Work Phone: [facility] 02-08-2022 11:19-0400 Diastolic blood pressure 76 mm[Hg] Magali Mitchell INNOVATION ANALYST.HOUSE BUILDER Work Phone: [facility] 02-08-2022 11:19-0400 Heart rate 74 /min Magali Mitchell INNOVATION ANALYST.HOUSE BUILDER Work Phone: [facility] 02-08-2022 11:19-0400 Systolic blood pressure 113 mm[Hg] Magali Mitchell INNOVATION ANALYST.HOUSE BUILDER Work Phone: [facility] 10-20-2021 09:45-0500 Body height 162.56 cm Beto Snyder Other [employer] Other 10-20-2021 09:45-0500 Body mass index (BMI) [Ratio] 31.41 kg/m2 Beto Snyder Other [employer] Other 10-20-2021 09:45-0500 Body weight 83.01 kg Beto Snyder Other [employer] Other 08-19-2021 17:10-0400 Body height 162.56 cm Erica Kingston Other [employer] Other 08-19-2021 17:10-0400 Body mass index (BMI) [Ratio] 31.24 kg/m2 Erica Kingston Other [employer] Other 08-19-2021 17:10-0400 Body temperature 97.3 [degF] Erica Kingston Other [employer] Other 08-19-2021 17:10-0400 Body weight 82.56 kg Erica Kingston Other [employer] Other 08-19-2021 17:10-0400 Diastolic blood pressure 82 mm[Hg] Erica Vashti Other [employer] Other 08-19-2021 17:10-0400 Respiratory rate 18 /min Erica Kumarmond Other [employer] Other 08-19-2021 17:10-0400 SaO2% (BldA) [Mass fraction] 98 % Erica Kingston Other [employer] Other 08-19-2021 17:10-0400 Systolic blood pressure 126 mm[Hg] Erica Kingston Other [employer] Other 08-13-2021 10:15-0400 Body height 162.56 cm Tita Pinanty Other [employer] Other 08-13-2021 10:15-0400 Body mass index (BMI) [Ratio] 30.89 kg/m2 Tita Ginty Other [employer] Other 08-13-2021 10:15-0400 Body temperature 6 [degF] Tita Ginty Other [employer] Other 08-13-2021 10:15-0400 Body weight 81.65 kg Tita Ginty Other [employer] Other 08-13-2021 10:15-0400 SaO2% (BldA) [Mass fraction] 99 % Tita Daugherty Other [employer] Other 07-28-2021 09:30-0400 Body height 162.56 cm Beto Snyder Other [employer] Other 07-28-2021 09:30-0400 Body mass index (BMI) [Ratio] 30.89 kg/m2 Beto Snyder Other [employer] Other 07-28-2021 09:30-0400 Body weight 81.65 kg Beto Fernándeztonia Other [employer] Other Clinical Notes 10-27-2020 to 04-28-2024 Nursing Notes - Stacie Johns RN - 04/12/2024 12:45 PM EDTNursing Notes - Stacie Johns RN - 04/12/2024 12:45 PM EDTNursing Notes - Stacie Johns RN - 04/12/2024 12:41 PM EDTAttachments Note Date & Type Note Facility 04-28-2024 Note Quality of life Answer each question by shading in the [place] completely. Choose only one answer for each question, please choose the answer that best matches your situation. Mobility 1 1 I have no problem walking about 2 I have some problems walking about 3 I am confined to bed Self-care 1 1 I have no problems with self-care 2 I have some problems with self-care 3 I am unable to dress myself Usual activity 1 1 I have no problems performing my usual activities 2 I have some problems with performing my usual activities 3 I am unable to perform my usual activities Pain/Discomfort 2 1 I have no pain or discomfort 2 I have moderate pain and discomfort 3 I have extreme pain and discomfort Anxiety/Depression 2 1 I am not anxious or depressed 2 I am moderately anxious or depressed 3 I am extremely anxious or depressed To help you communicate how good or bad your health state is, we have drawn a scale on which to rajiv your overall rating of your health. 0 represents your health at its worst, 100 represents your health at its best. Please place an X on the scale to show how good or bad your health is today. 5 10 15 20 25 30 35 40 45 50 55 60 65 70 75 80 85 90 95 100 X [facility] 04-28-2024 Note [place] Sleepiness S gladis Please rate the following [...] There are no active Hospital Problems. no [facility] 04-17-2024 Note Attestation signed by Grant Biswas, PhD at 04/18/2024 10:57 AM I have read and agree with the crumb packer's documentation and treatment summary. Please note there [...] (electronically signed on 04/17/2024 at 8:49 AM) [facility] 04-12-2024 Nurse Note Dilated LES to 20mm with balloon, held for [address] Franco [facility] 04-12-2024 Miscellaneous Notes Dilated LES to 20mm with balloon, held for [address] Franco Dilated pylorus to 20mm with balloon, held for [address] Franco. Sedation, vital signs, airway, and monitoring per anesthesia. documented in this encounter [facility] 04-12-2024 Nurse Note Dilated pylorus to 20mm with balloon, held for [address] [facility]. [facility] History and physical note ENDOSCOPIC PREPROCEDURE HISTORY AND PHYSICAL HISTORY OF PRESENT ILLNESS: Mary Leal is a 53 y.o. female seen in the pre-procedure area at [facility]. The indication for endoscopic evaluation includes: [place] grade D esophagitis Early satiety Unintentional weight [...] Monitored Anesthesia Care. Milagros Franco MD, PhD [facility] Work Phone: 04-12-2024 History and physical note ENDOSCOPIC PREPROCEDURE HISTORY AND PHYSICAL HISTORY OF PRESENT ILLNESS: Mary Leal is a 53 y.o. female seen in the pre[facility]procedure area at [facility]. The indication for endoscopic evaluation includes: [place] grade D esophagitis Early satiety Unintentional weight [...] Franco MD, PhD documented in this encounter [facility] 04-12-2024 Nurse Note 1316- Family/gravel truck driver arrived to recovery bay. RN provided and reviewed discharge instructions to patient and daughter. Verbalized understanding. All questions answered. 1326- Patient ambulated off ASC unit independently with gravel truck driver. documented in this encounter [facility] 04-12-2024 Nurse Surgical operation note 1316- Family/gravel truck driver arrived to recovery bay. RN provided and reviewed discharge instructions to patient and daughter. Verbalized understanding. All questions answered. 1326- Patient ambulated off ASC unit independently with gravel truck driver. [facility] 04-12-2024 Nurse Note Sedation, vital signs, airway, and monitoring per anesthesia. [facility] 04-03-2024 Note Attestation signed by Pauline Christensen MD at 04/03/2024 4:16 PM I personally saw and examined the patient on the same date of service as resident/fellow Dr. Dumont. I discussed the findings and therapeutic plan with the resident/fellow . I agree with the documentation, except for any edits/updates below. Teaching Physician's Revisions: None Pauline Christensen MD. Director Of Quantitative Research of Neurology and Sleep Medicine [facility] SLEEP/NEUROLOGY CLINIC FOLLOW-UP EVALUATION Date of Evaluation: [...] regarding sleep. She eventually was evaluated at [facility] sleep center with Dr. Sherman and [...] referred her to (more content not included)... [facility] 03-14-2024 Telephone encounter Note 02/27/24 OV with [...] Rx has been sent. Jacquelin Lowery RN [facility] 03-14-2024 Miscellaneous Notes 02/27/24 OV with [...] and order pended. OK to send Pt MC message that Rx has been sent. Jacquelin Lowery RN documented in this encounter [facility] 02-27-2024 Note HNO ID: [id number] Author: FLOWER LOPEZ APRN.HOUSE BUILDER Service: ? Author Type: Nurse Practitioner Type: [...] intermittently- somewhat improved. She has worked with [employer] rep re: interstim setting, now on program [...] you received about pain medications helpful? Yes [employer] Routeman offered:Patient declines OBJECTIVE: BP 146/93 Pulse 62 [...] 65% improvement s/p (more content not included)... [facility] 02-27-2024 History of Present illness Narrative [...] intermittently- somewhat improved. She has worked with [employer] rep re: interstim setting, now on program [...] you received about pain medications helpful? Yes [employer] Routeman offered:Patient declines OBJECTIVE: BP 146/93 Pulse 62 [...] if needed. Patient expressed understanding. Flower Lopez APRN.KWESI documented in this encounter [facility] 02-20-2024 Miscellaneous Notes Pt sent mc message 13 days ago requested diflucan for an on going yeast infection from antibiotics given for a procedure. Please advise. Pt of Dr.Wallace HARPER 11/21/23: The patient tolerated the procedure well. We will see how she does over the next week and plan for interstim stages 1/2 in the OR. Denisse Truong RN February 20, 2024 7:32 AM documented in this encounter [facility] 02-11-2024 Note HNO ID: [id number] Author: LISSA DOYLE APRN.CNP Service: ? Author Type: Nurse Practitioner Type: Progress Notes Filed: 02/11/2024 15:16 Note Text: Visit cancelled. Patient checked into [facility] care online system for My ongoing yeast infection. I've tried 3 Diflucan. . Connected to visit, advised PCP or local Express/Urgent Care in person evaluation. Patient verbalized understanding and comfortable with plan. Nontoxic appearance. Lissa Doyle APRN.CNP [facility] 02-11-2024 History of Present illness Narrative Visit cancelled. Patient checked into [employer] [facility] online system for My ongoing yeast infection. I've tried 3 Diflucan. . Connected to visit, advised PCP or local Express[facility]Urgent Care in person evaluation. Patient verbalized understanding and comfortable with plan. Nontoxic appearance. Lissa Doyle APRN.CNP documented in this encounter [facility] 02-07-2024 Note SLEEP/NEUROLOGY CLIN IC FOLLOW-UP [...] a second opinion from sleep medicine at [facility], and saw Dr. Yoni Tuttle on [...] regarding sleep. She eventually was evaluated at [facility] [place] with Dr. Sherman and had sleep study [...] like to av (more content not included)... [facility] 01-27-2024 Miscellaneous Notes Industrial Hygenist Resident Telephone Encounter 01/27/2024 10:44 AM Call [...] Discussed with Dr. 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 Radha Dunham MD Obstetrics and Gynecology, PGY1 documented in this encounter [facility] 01-25-2024 History and physical note PREANESTHESIA CONSULT CLINIC TELEHEALTH VISIT SERVICE DATE: 01/25/2024 SERVICE TIME: 9:02 AM Patient has been identified by name and date of : Yes Reason for contact: PACC visit Accompanied by: Self This is a virtual visit using [employer] Zoom Video Visit. It required patient-provider interaction for the medical decision making as documented below. I have communicated my name and active licensure. The patient's identity and physical location were verified at the time of this visit. Either the patient or their legal shared services representative has been informed of the risks [...] using inspire to get activated 02/07/2024 ) [id number] Score: Age: <65 Sex: female CHF history: No Hypertension history: Yes Stroke/TIA/thromboembolism history: No Vascular disease history: No Diabetes history: No [id number] Score: 2 ANESTHESIA FINDINGS: Intubation History: No [...] TONSILLECTOMY HX 07/2021 revision VAGINAL HYSTERECTOMY 2014 [facility] 10/2015 for endometriosis, has [...] the AM and 2 mg PM Yes ftgkkxdxyzu-iaihnccgo-lxxvgfso (TRELEGY ELLIPTA) 100-62.5-25 mcg Inhale 1 Puff as instructed once daily. Yes No medication comments found. ALLERGIES Allergen Reactions Risperidone Intolerance Breast discharge Poison Brenda Extract Rash Covid Immunization Dates Overdue - Covid-19 Vaccine (2022- season) Overdue since 07/07/2023 11/24/2021 Imm Admin: COVID-19 original vaccine, age 12+ yr, monovalent ([employer] [employer] [facility]) 05/11/2021 Imm Admin: COVID-19 original vaccine, age 12+ yr, monovalent ([employer] [employer] [facility]) 04/20/2021 Imm Admin: COVID-19 original vaccine, age 12+ yr, monovalent ([employer] [facility]) REVIEW OF SYSTEMS: positive findings are BOLD PAIN ASSESSMENT: Pain Description: Burning, Pressure Duration Amount of Time: 7 Duration Units: Weeks Frequency: Continuous Intervention/Comfort measure: Reposition General: Obesity Body mass index is 25.75 kg/m . No weight loss, malaise or fevers. Neuro: No history of TIA's, stroke, REGIONAL BUSINESS MANAGER tumor, impaired sensorium, hemiplegia, paraplegia or quadraplegia. No neurological symptoms or problems. Respiratory: CHUCKIE and asthma Negative for Bronchitis, COPD, Pneumonia within 6 weeks (date), URI < 2 weeks Negative for cough, wheezing or shortness of breath. Negative for hemoptysis. Cardiovascular: HTN Negative for Recent [place], CAD, CHF Negative for chest pain, orthopnea, [...] TIME: 9:02 AM documented in this encounter [facility] 01-23-2024 Instructions Max Marroquin PA-C - 01/23/2024 3:50 PM EDT PATIENT PREOPERATIVE INSTRUCTIONS Pam Wang MD has scheduled you for your procedure at this surgery center: [facility] [place] Scheduling Office: [phone] --[address] [place] [address]. Arrival Time for Surgery: - To obtain your arrival time for surgery, call your physician's office the day before your surgery. - If your surgery is scheduled for Monday, call the Monday before. Your surgeon s master scheduler will tell you what time to call the office. - If you have not reached the departmental master scheduler by 5 P.M., call [phone] after 5 P.M. the day before your [...] Procedures: - YOU MUST HAVE A RESPONSIBLE PETROLEUM REFINERY LABORER TAKE YOU HOME. A HEALTH INSURANCE ADJUSTER OR LAP POLISHER CANNOT BE MADE A RESPONSIBLE PETROLEUM REFINERY LABORER. - We recommend that a responsible person stays with you overnight to take care of you. - You cannot stay in a hotel alone after outpatient surgery. You will not be permitted to have your surgery, if you do not have someone to take care of you. If you already have an Advance Directive, please fax a copy to [phone] or email to for it to be [...] Max Marroquin PA-C documented in this encounter [facility] 01-22-2024 Note HNO ID: [id number] Author: LEV THOMPSON LPN Service: ? Author Type: LICENSED NURSE Type: Progress Notes Filed: 01/25/2024 09:48 Note Text: DATE OF SERVICE: 01/25/2024 PROBLEM: Mary Leal presents for pre-op teaching. PRE-OP DIAGNOSIS: urinary urgency SCHEDULED SURGERY AND DATE: 01-26-24 [facility] INSRT NSTIM GENERATOR BLADDER W/ POCKET [...] patient have an advanced directive: No Does [facility] have a copy of the patient's [...] prescribed by anesthesia, internal medicine, surgeon, or INDUSTRIAL RELATIONS SPECIALIST Stop NSAIDs, Aspirin (ASA), vitamins, herbal supplements, [...] jewelry, body piercing, makeup, contacts, lotions, nail mexican on fingers, or anything in hair on arrival to surgery Wear low healed shoes and loose fitting clothing Leave all valuables at home or with a family member Directions to [facility] Parking/parking validation on the day prior [...] if after hours patient instructed to call coal mill operator and ask for bevel face stoner and polisher vp outcomes resident. DENISA program offered to patient: Yes [...] None Educator: Lev Thompson LPN [facility] 01-22-2024 History of Present illness Narrative DATE OF SERVICE: 01/25/2024 PROBLEM: Mary Leal presents for pre-op teaching. PRE-OP DIAGNOSIS: urinary urgency SCHEDULED SURGERY AND DATE: 01-26-24 [facility] INSRT NSTIM GENERATOR BLADDER W/ POCKET [...] patient have an advanced directive: No Does [facility] have a copy of the patient's [...] prescribed by anesthesia, internal medicine, surgeon, or INDUSTRIAL RELATIONS SPECIALIST Stop NSAIDs, Aspirin (ASA), vitamins, herbal supplements, [...] jewelry, body piercing, makeup, contacts, lotions, nail mexican on fingers, or anything in hair on arrival to surgery Wear low healed shoes and loose fitting clothing Leave all valuables at home or with a family member Directions to [facility] Parking/parking validation on the day prior [...] if after hours patient instructed to call coal mill operator and ask for bevel face stoner and polisher vp outcomes resident. DENISA program offered to patient: Yes [...] None Educator: Lev Thompson LPN [facility] documented in this encounter [facility] 01-22-2024 Instructions Lev Thompson LPN - 01/22/2024 11:22 AM EDT UROGYNECOLOGY PHYSICIAN CONTACT INFORMATION During business hours, these numbers connect to your doctor s office. During the evening and weekends, these numbers will connect you to the answering service to speak with the doctor bevel face stoner and polisher. Dr. Pam Wang After hours phone number: or toll free Ask the coal mill operator to page the 'vp outcomes bevel face stoner and polisher.' Surgery Scheduling Office: Call the day before [...] vitamin E, herbal medications, diet pills, and kdqv-vmm-ggqjbly medications. Tylenol (acetaminophen) is okay. I will not wear jewelry, body piercing(s), makeup, nail mexican, hairpins, or contacts on the day of [...] my surgeon. Discuss medication changes with your distribution lineman or primary care physician as well. If I stopped taking my blood-thinning medication, I will ask the surgeon when to resume taking it. If I am an outpatient, a responsible person will drive me home and it was suggested that someone stay with me for 24 hours. I understand that a business services coordinator or cabdriver is NOT a responsible caregiver. [...] for surgery, I must call my surgical coder after 2pm the day before surgery. PREOP INSTRUCTIONS THE DAY OF SURGERY/CHECK IN Report to DESK J1-9 for surgery. A map is located in Your Surgical Guide Book. The online version of the surgical guide book can be found at: [email or web address] The address is [address] [place] [address] INFECTION PREVENTION Please notify your doctor if [...] Your Surgical Guide Book for more information. [facility] TEAM At the [facility], we have a multidisciplinary team of caregivers that includes fellows, residents, nurse practitioners, physician assistants, clinical nurse specialists, nurses, medical assistants, patient care nursing assistants, social workers, case packer and many others. We all have different [...] for post-surgery concerns. documented in this encounter [facility] 01-10-2024 History of Present illness Narrative [facility] [address] [place] [address], [address] [address] SUBJECTIVE: Patient ID (1970): Mary Leal is [...] carcinoma (BCC) of chest 04/04/2023 Bipolar disorder ([facility]) Chronic interstitial cystitis 04/06/2023 Chronic sinusitis 07/07/2022 [...] 03/20/2020 Performed by Noman Mayo MD at [facility] END[facility] EGD, DILATATION N/A 09/25/2020 Performed by Noman Mayo MD at [facility] END[facility]COPY ENDOSCOPIC DIAGNOSTIC DRUG INDUCED SLEEP Bilateral 09/19/2023 Performed by Cullen Dawkins MD at [facility] FOOT SURGERY 06/25/2020 left foot surgery FOOT SURGERY Right 10/2022 and 05/2023 HYSTERECTOMY 2015 LASER LINGUAL TONISILLECTOMY Circumferential 07/08/2021 Performed by Areli Avila MD PhD at [facility] MRI FOOT LEFT NECK SURGERY 2017 PLANTAR FASCIECTOMY RELEASE PHARYNGEAL SCAR CPT 73515 Circumferential 07/08/2021 Performed by Areli Avila MD PhD at [facility] RESECTION SUBMUCOSAL NASAL Bilateral 02/11/2021 Performed by Areli Avila MD PhD at [facility] ROTATOR CUFF REPAIR Right SEPTOPLASTY Circumferential 02/11/2021 Performed by Areli Avila MD PhD at [facility] TONSILLECTOMY Bilateral 02/11/2021 Performed by Areli Avila MD PhD at [facility] TOTAL COLECTOMY 03/2022 uvuloplasty N/A 02/11/2021 Performed by Areli Avila MD PhD at [facility] Family History Problem Relation Age of Onset [...] in the morning. Indications: gastroesophageal reflux disease. dorxvrsqvff-utnigjwlm-sxltflox (TRELEGY ELLIPTA) 100-62.5-25 mcg blister with device Inhale 1 puff in the morning. 60 each 5 fremanezumab-vfrm ([employer] AUTOINJECTOR) 225 mg/1.5 mL inject 1 AND [...] mg 2.5 mg nebulization PRN Gwendolyn Stroud APRN-HOUSE BUILDER REVIEW OF SYSTEMS: Review of Systems Data [...] this chart were generated using voice recognition [employer] dictation software. Although every effort was made to ensure the accuracy of this automated taping foreman, some errors in taping foreman may have occurred. Iam Siddiqi 01/10/24 0753 documented in this encounter [facility] 01-10-2024 Instructions Cullen Dawkins MD - 01/10/2024 [...] test result within 7 days, please call [phone] to leave a request for your results. [...] Ultrasound, MRI or PET scan, please call [email or web address] Central Scheduling at [phone]. If you need to be scheduled for surgery, please call Aiden Augustin Surgery Coordinator at [phone], or Lazara at [phone] or our main number [phone] if you have not received a return [...] (and medications that contain aspirin): Many non-prescription (nsnk-nzx-ytxivih or OTC) medications contain aspirin. If you [...] L-carnosine Licorice Kava kava Milk thistle Multivitamin Rule-3 Resveratrol Skullcap [place]'s wort Vitamin E Adipex (phentermine) Glenn (orlistat) Hydroxycut Garcinia Cambogia Raspberry Ketones Ycoxzrki-L-48 should be stopped 14 days before surgery You will receive specific instructions regarding your insulin and anti-coagulant/anti-platelet medications (if applicable). [facility] Miscellaneous Notes PATIENT NOTIFIED WITH SURGERY TIME OF 11:00. TOLD TO ARRIVE 2 HOURS PRIOR. documented in this encounter [facility]-27[facility]23 Telephone encounter Note PATIENT NOTIFIED WITH SURGERY TIME OF 11:00. TOLD TO ARRIVE 2 HOURS PRIOR. [facility] 12-25-2023 Miscellaneous Notes See MC message A [...] distance health visit in this department: 10/25/[address], Nurse Next visit in this department: 01/25/2024 documented in this encounter [facility] 12-20-2023 History and physical note PRE-ADMISSION TESTING HISTORY AND PHYSICAL EXAM DATE: 12/20/23 PCP: ELICEO GÓMEZ JR, DO CHIEF COMPLAINT: CHUCKIE (obstructive sleep apnea) HISTORY OF PRESENT ILLNESS: Mary Leal, a 53 y.o. White or female, presents to [facility] for a pre-surgical H&P for a planned insertion of hypoglossal nerve stimulator. She complains of HCUCKIE. She states she was diagnosed about 5 years ago. She has been unable to tolerate the Cpap. PAST MEDICAL HISTORY: Past Medical History: Diagnosis Date ADD (attention deficit disorder) Allergic rhinitis 11/16/2015 Anxiety Asthma Atopic dermatitis 04/09/2020 Basal cell carcinoma (BCC) of chest 04/04/2023 Bipolar disorder ([facility]) Chronic interstitial cystitis 04/06/2023 Chronic sinusitis 07/07/2022 [...] 03/20/2020 Performed by Noman Mayo MD at [facility] ENDOSCOPY EGD, DILATATION N/A 09/25/2020 Performed by Noman Mayo MD at [facility] ENDOSCOPY ENDOSCOPIC DIAGNOSTIC DRUG INDUCED SLEEP Bilateral 09/19/2023 Performed by Cullen Dawkins MD at [facility] FOOT SURGERY 06/25/2020 left foot surgery FOOT SURGERY Right 10/2022 and 05/2023 HYSTERECTOMY 2015 LASER LINGUAL TONISILLECTOMY Circumferential 07/08/2021 Performed by Areli Avila MD PhD at [facility] MRI FOOT LEFT NECK SURGERY 2017 PLANTAR FASCIECTOMY RELEASE PHARYNGEAL SCAR CPT 55930 Circumferential 07/08/2021 Performed by Areli Avila MD PhD at [facility] RESECTION SUBMUCOSAL NASAL Bilateral 02/11/2021 Performed by Areli Avila MD PhD at [facility] ROTATOR CUFF REPAIR Right SEPTOPLASTY Circumferential 02/11/2021 Performed by Areli Avila MD PhD at [facility] TONSILLECTOMY Bilateral 02/11/2021 Performed by Areli Avila MD PhD at [facility] TOTAL COLECTOMY 03/2022 uvuloplasty N/A 02/11/2021 Performed by Areli Avila MD PhD at [facility] FAMILY HISTORY: Family History Problem Relation Age [...] Indications: gastroesophageal reflux disease., Disp: , Rfl: kvyksubtfby-bsnhjyyek-hvrhqukm (TRELEGY ELLIPTA) 100-62.5-25 mcg blister with device, Inhale 1 puff in the morning., Disp: 60 each, Rfl: 5 fremanezumab-vfrm ([employer] AUTOINJECTOR) 225 mg/1.5 mL, inject 1 AND [...] 2.5 mg, nebulization, PRN, Gwendolyn Nicole Stroud, INNOVATION ANALYST-HOUSE BUILDER REVIEW OF SYSTEMS: Review of Systems Constitutional: [...] the most recent lab values available in [facility] at the time of the office visit and additional labs may have been drawn since that time. ASSESSMENT / DIAGNOSIS: CHUCKIE (obstructive sleep apnea) PLAN: Mary Leal is scheduled for Insertion Stimulator Nerve Hypoglossal - Right with Dr. Dawkins on 01/02/2024. STELLA Duron 12/20/[address] [facility] 12-20-2023 History and physical note PRE-ADMISSION TESTING HISTORY AND PHYSICAL EXAM DATE: 12/20/23 PCP: ELICEO GÓMEZ JR, DO CHIEF COMPLAINT: CHUCKIE (obstructive sleep apnea) HISTORY OF PRESENT ILLNESS: Mary Leal, a 53 y.o. White or female, presents to [facility] for a pre-surgical H&P for [...] carcinoma (BCC) of chest 04/04/2023 Bipolar disorder ([facility]) Chronic interstitial cystitis 04/06/2023 Chronic sinusitis 07/07/2022 [...] 03/20/2020 Performed by Noman Mayo MD at [facility] ENDOSCOPY EGD, DILATATION N/A 09/25/2020 Performed by Noman Mayo MD at [facility] ENDOSCOPY ENDOSCOPIC DIAGNOSTIC DRUG INDUCED SLEEP Bilateral 09/19/2023 Performed by Cullen Dawkins MD at [facility] FOOT SURGERY 06/25/2020 left foot surgery FOOT SURGERY Right 10/2022 and 05/2023 HYSTERECTOMY 2015 LASER LINGUAL TONISILLECTOMY Circumferential 07/08/2021 Performed by Areli Avila MD PhD at [facility] MRI FOOT LEFT NECK SURGERY 2017 PLANTAR FASCIECTOMY RELEASE PHARYNGEAL SCAR CPT 55900 Circumferential 07/08/2021 Performed by Areli Avila MD PhD at [facility] RESECTION SUBMUCOSAL NASAL Bilateral 02/11/2021 Performed by Areli Avila MD PhD at [facility] ROTATOR CUFF REPAIR Right SEPTOPLASTY Circumferential 02/11/2021 Performed by Areli Avila MD PhD at [facility] TONSILLECTOMY Bilateral 02/11/2021 Performed by Areli Avila MD PhD at [facility] TOTAL COLECTOMY 03/2022 uvuloplasty N/A 02/11/2021 Performed by Areli Avila MD PhD at [facility] FAMILY HISTORY: Family History Problem Relation Age [...] Indications: gastroesophageal reflux disease., Disp: , Rfl: icioabhahsc-mqqdewfcp-ujlsgtde (TRELEGY ELLIPTA) 100-62.5-25 mcg blister with device, Inhale 1 puff in the morning., Disp: 60 each, Rfl: 5 fremanezumab-vfrm ([employer] AUTOINJECTOR) 225 mg/1.5 mL, inject 1 AND [...] 2.5 mg, nebulization, PRN, Gwendolyn Nicole Stroud, INNOVATION ANALYST-HOUSE BUILDER REVIEW OF SYSTEMS: Review of Systems Constitutional: [...] the most recent lab values available in [facility] at the time of the office visit and additional labs may have been drawn since that time. ASSESSMENT / DIAGNOSIS: CHUCKIE (obstructive sleep apnea) PLAN: Mary Zoya Leal is scheduled for Insertion Stimulator Nerve Hypoglossal - Right with Dr. Dawkins on 01/02/2024. STELLA Duron 12/20/23 [address] documented in this encounter [facility] 12-20-2023 Instructions Earlene Whalen RN - 12/20/2023 11:45 AM EST Your surgery/procedure is scheduled at [facility] on 01/02/2024 Arrival Time Surgeon will call [facility] Address: [address] [place] [address], [address] [place] [address] in the Emergency Center Parking lot. Report to the front desk agent in the Emergency/Surgery Registration lobby of the hospital. Please call Pre-Admission Clinic at [phone] if you have any questions prior to surgery. For questions the morning of surgery, please call the Pre-op Department at [phone]. Notify your SURGEON if you develop any [...] would like to schedule therapy at a [facility] facility, please call [phone] ([phone]). Do not use lotions, creams, powders, perfume, make up, cologne or after-shaves day of surgery. Remove ALL jewelry including wedding rings, body piercings, hair extensions that contain metal, nail mexican, make-up, and contact lens. You may brush your teeth the morning of surgery, but do not swallow the water. Wear your dentures and partial plates to the hospital (no adhesive). Shower the night the before. If applicable, use the CHG (chlorhexidine gluconate) soap or wipes. Please be advised, [facility] has transitioned to a cashless [...] RIGHTS AND RESPONSIBILITIES As a patient at [facility], you have the right to: Receive medical care and be informed of who is taking care of you Be treated with dignity and respect Have a family member/shared services representative of choice and your physician notified of your admission Receive information and actively participate in decisions about your care and treatment Refuse care, treatment and services Decide who may provide your support and speak for you Access yazidism and spiritual services Participate in ethical issues [...] of hospital charges and payment methods Patient/patient shared services representative responsibilities are to: Provide information about [...] in clean clothes. documented in this encounter [facility] 11-21-2023 Note HNO ID: [id number] Author: PAM WANG MD Service: ? Author [...] personal performance and is accurate and complete. [facility] 11-08-2023 Miscellaneous Notes NURTEC PENDING WITH TEJADA [id number] documented in this encounter [facility] 11-08-2023 Telephone encounter Note NURTEC PENDING WITH TEJADA [id number] [facility] 10-12-2023 Note Patient emailed stat ing she is finding another provider and will no longer be seen at this clinic. [facility] 10-12-2023 Note HNO ID: [id number] Author: Pam Wang MD Service: ? Author [...] Video-assisted cystourethroscopy was performed using a 19 Polish 70 and 30 degree rigid cystoscope with [...] urethra PLAN: See progress note from today [facility] 10-10-2023 Note HNO ID: [id number] Author: Pam Wang MD Service: ? Author [...] PFSH obtained by others. Pam Wang MD [employer] Routeman offered: Patient declines. OBJECTIVE: BP 102/60 General: [...] would like to move forward with PNE. [employer] packet given to patient today to review. [...] which included preparing to see the patient, fffl-ny-ptxd patient care, completing clinical documentation, obtaining and/or reviewing separately obtained history, performing a medically appropriate examination, counseling and educating the patient/family/caregiver, and communicating with other HCP (more content not included)... [facility] 10-02-2023 Miscellaneous Notes Patient was called [...] 150 MG TABLET MEREDITH: 09/27/2023 Doris Arias APRN.[facility] ([facility]) ASSESSMENT: Mary Leal is a 53 [...] Dr. Pam Wang documented in this encounter [facility] 09-27-2023 Note HNO ID: [id number] Author: Doris Arias APRN.[facility] Service: ? Author Type: Nurse Practitioner [...] urination is normal and pressure with urinating DIRECT SALES REPRESENTATIVE: denies abnormal vaginal bleeding, no vaginal discharge [...] Making Level: 3 - Low Doris Arias APRN.[facility] 09-27-2023 Miscellaneous Notes Scheduled 10/10/23 for [...] which included preparing to see the patient, exjx-io-hmpc patient care, completing clinical documentation, obtaining and/or [...] Office will call to schedule cystoscopy. Urogynecology [facility] Main provided: Pam Wang Staff Physician, Department of Urogynecology and Pelvic Floor Disorders Worsening frequency and urgency of urination. Is a urine culture indicated? Please review/advise Lex Vieyra RN documented in this encounter [facility] 09-19-2023 Note Patient states she m istook this medication and has been off for 7 days. Restarting it at the 25mg dose. [facility] 09-11-2023 Note HNO ID: [id number] Author: Jairon Lai MD Service: ? Author Type: Physician Type: Progress Notes Filed: 09/11/2023 1:18 PM Note Text: ON LICENSE OF [facility] [...] to void lower flow Jairon Lai MD [facility] 09-11-2023 Note HNO ID: [id number] Author: Phil Beckford MD Service: ? Author [...] from sling incision +/- discussion of SNM [facility] 09-01-2023 Note Spoke with patient. Canceling valium script. Increasing ativan dose to bid with current bottle for mgmt of anxiety. Appoitment on Saturday 09/08 - she will bring in ativan to count tablets. She states she has 20 left as of today. She should have 4 left at that appointment. [facility] 09-01-2023 Note Mary has been hav [...] disponing Ativan at pharmacy in order to seed cone picker 1 weeks worth of Valium 5mg bid #16, to get her to her next appointment on 09/08. [facility] 08-23-2023 Note Psych Progress Note Time In: 925 Time Out: 940 HPI Present at Visit: Mary, provider, INDUSTRIAL RELATIONS SPECIALIST student Location of Service: Office Review of Systems Constitutional: Negative. Respiratory: Negative. Cardiovascular: Negative. Psychiatric/Behavioral: dysphoric mood, irritability, insomnia Date of Telehealth Visit: 08/23/23 Chief Complaint Patient presents with Telehealth Audio/video Visit [email or web address] The patient was notified that using 3rd democrat telecommunication application (e.g., Amaru) is not HIPPA compliant and may carry some privacy risks. Yes The visit was conducted uefv-zl-ybbk with the use of audio and video technology Travelnuts between patient and provider for a virtual [...] Wear CPAP/ Insp (more content not included)... [facility] 08-21-2023 Note [facility] 08-12-2023 Emergency department Note Discharge, follow up, referral, and prescription information reviewed and explained; all questions and concerns addressed. Patient A/Ox3 in NAD, resp. easy unlabored upon discharge, escorted to exit by staff. [facility] 08-12-2023 Emergency department Note Discharge, follow up, [...] gastroparesis, gastroenteritis, acute cholecystitis, pancreatitis, less likely [place] The patient's initial and delta troponin are negative. EKG does not demonstrate any ischemic changes. Low suspicion for [place]. Her urinalysis is negative for UTI. Urine [...] follow-up. She was instructed to call her director instructional material and PCP to schedule follow-up appointments. She was instructed to return to the emergency department if she has any new or worsening symptoms. Patient agreeable plan of care. Return precautions discussed at bedside. Spoke with Dr. Salmon regarding patient. Physician to complete their own physical exam and evaluation. Collaboration performed between this MOBILE APPLICATION ENGINEER and physician regarding patient's plan of care. [...] following orders were created for panel order [place] Draw. Procedure Abnormality Status --------- ------ Gold Top[[id number]] Final result LIGHT BLUE TOP[[id number]] Final result Dark Green Top[[id number]] Final result Please view results for these tests on the individual orders. GOLD TOP LIGHT BLUE TOP DARK GREEN TOP TROPONIN I Records reviewed: Urogynecology telemedicine visit 08/07/2023 ENT visit 07/11/2023 Family medicine visit 07/06/2023 Lev Ritter APRN HOUSE BUILDER 08/12/23 0723 Emily at bedside Ambulates to triage with C/O sudden epigastric gnawing, burning pain that woke her from sleep. Also reports wheezing. States nausea. Denies fever. Alert. Respirations easy and unlabored. Skin PWD. NAD noted. documented in this encounter [facility] 08-12-2023 Hospital Discharge instructions Lev Ritter APRN [...] cannot be sent through Care Everywhere.Abdominal Pain (Montenegrin Danish)documented in this encounter [facility] 08-12-2023 Emergency department Note Report to Les GAMBINO [facility] 08-12-2023 Physician Emergency department Note Images from [...] gastroparesis, gastroenteritis, acute cholecystitis, pancreatitis, less likely [place] The patient's initial and delta troponin are negative. EKG does not demonstrate any ischemic changes. Low suspicion for [place]. Her urinalysis is negative for UTI. Urine [...] follow-up. She was instructed to call her director instructional material and PCP to schedule follow-up appointments. She was instructed to return to the emergency department if she has any new or worsening symptoms. Patient agreeable plan of care. Return precautions discussed at bedside. Spoke with Dr. Salmon regarding patient. Physician to complete their own physical exam and evaluation. Collaboration performed between this MOBILE APPLICATION ENGINEER and physician regarding patient's plan of care. [...] following orders were created for panel order [place] Draw. Procedure Abnormality Status --------- ------ Gold Top[[id number]] Final result LIGHT BLUE TOP[[id number]] Final result Dark Green Top[[id number]] Final result Please view results for these tests on the individual orders. GOLD TOP LIGHT BLUE TOP DARK GREEN TOP TROPONIN I Records reviewed: Urogynecology telemedicine visit 08/07/2023 ENT visit 07/11/2023 Family medicine visit 07/06/2023 Lev Ritter APRN CNP 08/12/23722 [facility] 08-12-2023 Emergency department Note Emily at bedside [facility] 08-12-2023 Emergency department Triage note Ambulates to triage with C/O sudden epigastric gnawing, burning pain that woke her from sleep. Also reports wheezing. States nausea. Denies fever. Alert. Respirations easy and unlabored. Skin PWD. NAD noted. [facility] 08-07-2023 Note HNO ID: [id number] Author: Pam Wang MD Service: ? Author [...] no Pain: no Abnormal Vaginal Discharge: no DIRECT SALES REPRESENTATIVE 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 She has no history of an abnormal mammogram with cysts on US LMP: No LMP recorded. Patient has had a hysterectomy.; Menopause 3 years ago; hysterectomy in 2015: Menstrual history: NA; Deliveries: I have confirmed and edited as necessary, the PFSH obtained by others. Pam Wang MD [employer] Routeman offered: Patient declines. OBJECTIVE (Virtual) There were [...] which included preparing to see the patient, xjvb-we-lmpb patient care, completing clinical documentation, obtaining and/or reviewing separately obtained history, counseling and educating the patient/family/caregiver, ordering medications, tests, or procedures, and communicating with other HCPs (not separately reported). Pam Wang MD [facility] 07-31-2023 Note HNO ID: [id number] Author: Nelsy Chávez APRN.KWESI Service: ? Author [...] new Pain: no Abnormal Vaginal Discharge: no DIRECT SALES REPRESENTATIVE 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 She has no history of an abnormal mammogram with cysts on US LMP: No LMP recorded. Patient has had a hysterectomy.; Menopause 3 years ago; hysterectomy in 2015: Menstrual history: NA; Deliveries: I have confirmed and edited as necessary, the PFSH obtained by others. Nelsy Chávez APRN.HOUSE BUILDER [employer] Routeman offered: Patient declines. OBJECTIVE: There were no [...] for now d/t side effects Nelsy Chávez, DANN.HOUSE BUILDER I spent a total of 45 minutes on the date of the service which included preparing to see the patient, ijpe-pa-ceoy patient care, completing clinical documentation, performing a medically appropriate examination, counseling and educating the patient/family/caregiver and ordering medications, tests, or procedures. [facility] 07-31-2023 History of Present illness Narrative [...] for several months. Had foot surgery in [place], couldn't void after. Started Myrbetriq early July [...] new Pain: no Abnormal Vaginal Discharge: no DIRECT SALES REPRESENTATIVE 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 She has no history of an abnormal mammogram with cysts on US LMP: No LMP recorded. Patient has had a hysterectomy.; Menopause 3 years ago; hysterectomy in 2015: Menstrual history: NA; Deliveries: I have confirmed and edited as necessary, [facility] obtained by others. Nelsy Chávez APRN.HOUSE BUILDER [employer]ukebox Routeman offered: Patient declines. OBJECTIVE: There were no [...] which included preparing to see the patient, pddx-ud-zach patient care, completing clinical documentation, performing a medically appropriate examination, counseling and educating the patient/family/caregiver and ordering medications, tests, or procedures. documented in this encounter [facility] 07-25-2023 Note Patient: Mary arriaza Procedure Summary Date: 07/25/23 Room / Location: [facility] Main OR Anesthesia Start: 1104 Anesthesia Stop: 1213 Procedures: EGD DIAGNOSTIC COLONOSCOPY Diagnosis: Gastroesophageal reflux [...] per anesthesia protocol. No notable events documented. [facility] 07-25-2023 Note Patient: Mary arriaza Procedure Summary Date: 07/25/23 Room / Location: [facility] Main OR Anesthesia Start: 1104 Anesthesia Stop: Procedures: EGD DIAGNOSTIC COLONOSCOPY Diagnosis: Gastroesophageal reflux disease without esophagitis Nausea Diarrhea, unspecified type Scheduled Providers: Matteo Quinones MD; Blanquita Ramirez MD Responsible Provider: Blanquita Ramirez MD Anesthesia Type: MAC ASA Status: 3 Anesthesia Post Transport [facility]: room air Patient Monitor: direct observation Transport: uneventful Patient condition is: stable [facility] 07-25-2023 Note Patient: Mary arriaza Procedure Information Date/Time: 07/25/23 1100 Scheduled providers: Matteo Quinones MD; Blanquita Ramirez MD Procedures: EGD DIAGNOSTIC COLONOSCOPY Location: [facility] Main OR Relevant Problems Anesthesia (+) CHUCKIE [...] who. Plan discussed with resident, CAA and YOKE SETTER. 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 Do not wear perfume, make-up, nail mexican, or lotions on the day of your [...] need to make any changes, please call [phone]. Notify your surgeon if you develop any illness such as a cold, cough, fever, sore throat or vomiting between now and your surgery. Thank you for entrusting us with your care. [facility] Surgical Services Team [facility] 06-08-2023 Note Psych Progress Note Time In: 925 Time Out: 940 HPI Present at Visit: basia Hernandez, INDUSTRIAL RELATIONS SPECIALIST student Location of Service: Office Review of Systems Constitutional: Negative. Respiratory: Negative. Cardiovascular: Negative. Psychiatric/Behavioral: Negative. Date of Telehealth Visit: 06/08/23 Chief Complaint Patient presents with Telehealth Audio/video Visit [email or web address] The patient was notified that using 3rd democrat telecommunication application (e.g., Amaru) is not HIPPA compliant and may carry some privacy risks. Yes The visit was conducted xalb-ix-ncul with the use of audio and video technology Travelnuts between patient and provider for a virtual [...] dictated by speech recognition. Minor errors in taping foreman may be present. Information on after hour access to care was provided - encouraged to use 911, [facility], their [facility] crisis hotline, or the nearest emergency room in the event of a crisis. Also informed of 24 hour access at [facility] and if in crisis after regular business hours may call the hospital coal mill operator [phone]; and ask to speak with the residential tech on-call. Patient Rights and Responsibilities were discussed, [...] get back t (more content not included)... [facility] 05-31-2023 Note [facility] Gastroenterolog y New Patient Visit - History & Physical CHIEF COMPLAINT Chief Complaint Patient presents with Nausea GERD Abdominal Pain New Patient HISTORY OF PRESENT ILLNESS: Mary Leal is a 53 y.o. female new patient referred by Dr. Gómez for gastroparesis, GERD, and abdominal pain. Past medical history includes gastroparesis ( was evaluated by DR Masters at [facility]) and total abdominal colectomy with ileorectal [...] Abnormal mammogram Arthritis (more content not included)... [facility] 05-22-2023 Note You are not granted access to view this sensitive note. [facility] 05-17-2023 Note Psych Progress Note Time In: 1245 Time Out: 110 HPI Present at Visit: Mary Location of Service: Office Review of Systems Constitutional: Negative. Respiratory: Negative. Cardiovascular: Negative. Psychiatric/Behavioral: Negative. Date of Telehealth Visit: 05/17/23. Chief Complaint Patient presents with Telehealth Audio/video Visit [email or web address] The patient was notified that using 3rd democrat telecommunication application (e.g., Amaru) is not HIPPA compliant and may carry some privacy risks. Yes The visit was conducted kokr-yt-[id number] with the use of audio and video technology Travelnuts between patient and provider for a virtual [...] dictated by speech recognition. Minor errors in taping foreman may be present. Information on after hour access to care was provided - encouraged to use 911, [facility], [facility] crisis hotline, or the nearest emergency room in the event of a crisis. Also informed of 24 hour access at [facility] and if in crisis after regular business hours may call the hospital coal mill operator [phone]; and ask to speak with the residential tech on-call. Patient Rights and Responsibilities were discussed, [...] alternatives to tr (more content not included)... [facility] 05-17-2023 Note You are not granted access to view this sensitive note. [facility] 04-26-2023 Evaluation note Encounter Date Diagnosis [...] Above note written by Wanda Yang LPN, Range Manager. Edited and approved by Dr. Beto Snyder MD. [facility] Other 06-06-2023 Miscellaneous Notes* Telephone Encounter - Serenity Joseph MA - 04/11/2023 10:19 AM EDT MEREDITH=10/11/22 Spoke with patient she does need a refill Medication pended please file Rx request if appropriate Patient and pharmacy verified documented in this encounterBlanchard [facility]05-15-2023 Miscellaneous Notes* Telephone Encounter - Regina Philippe - 03/20/2023 2:50 PM EDT Should patient follow up via virtual visit to discuss further? * Telephone Encounter - Steffi Ross LPN - 03/20/2023 10:20 AM EDT Patient's stool tests came back normal. Steffi Ross LPN documented in this encounterBlanchard Valley [facility]04-18-2023 NotePROCEDURE: XR ANKLE RT MIN 3 [...] Electronically authenticated by: ZAIDA ACOSTA Date: 2023-02-21 10:1504-18-2023 NotePROCEDURE: XR ANKLE RT MIN 3 VIEWS, [...] Electronically authenticated by: ZAIDA ACOSTA Date: 2023-02-21 10:1503-28-2023 NotePROCEDURE: XR FOOT RT MIN 3 VIEWS [...] Electronically authenticated by: ZAIDA ACOSTA Date: 2023-01-31 11:5503-16-2023 Miscellaneous Notes* Telephone Encounter - Jennie Moreno RN - 01/19/2023 2:17 PM EDT Please review and advise patient. documented in this encounterCatherine [place] [address]-13-2023 Miscellaneous Notes* Telephone Encounter - Mounika Roberto PA-C - 01/16/2023 1:08 PM EDT Patient was scheduled for virtual PACC appt at 1300 today. Patient did not check in for visit. Called patient at [phone] to see if they needed any assistance logging in and left voicemail. This message routed to PACC schedulers to contact patient to reschedule PACC appt. Mounika Roberto PA-C January 16, 2023 1:09 PM documented in this encounterBlanchard Valley [facility]03-13-2023 History and physical note * Mounika Roberto PA-C - 01/16/2023 1:00 PM EDT This is a virtual visit using [employer] IIt video visit. It required patient-provider interaction for themedical decision making as documented below. I have communicated my name and active licensure. The patient's identity and physical location wereverified at the time of this visit. Either the patient or their legal shared services representative has been informed of the risks and benefits of and alternatives to treatment through a remote evaluation and consents to proceed with the evaluation remotely. Surgeon: Winston Hannah DO Type of surgery: GEN SURG: POP Patient scheduled for surgery on 02/08/23 . Surgery Location: [facility] Diagnosis: Preop examination (primary encounter diagnosis) [...] in the AM and 4 mg PM afdwpvsurrg-nqgpviqku-qqwhmuii (TRELEGY ELLIPTA) 100-62.5-25 mcg Inhale 1 Puff [...] 16, 2023 12:36 PM documented in this encounterBlanchard Valley [facility]03-13-2023 Instructions* Patient Instructions* Mounika Roberto PA-C - 01/16/2023 12:38 PM EDT PATIENT PREOPERATIVE INSTRUCTIONS Winston Hannah DO has scheduled you for your procedure at this surgery center: [facility]: [phone] -- [address], [facility] [address]. Please read below carefully for your personalized [...] Procedures: - YOU MUST HAVE A RESPONSIBLE PETROLEUM REFINERY LABORER TAKE YOU HOME. A HEALTH INSURANCE ADJUSTER OR LAP POLISHER CANNOT BE MADE A RESPONSIBLE PETROLEUM REFINERY LABORER. - We recommend that a responsible person [...] Advance Directive, please fax a copy to [phone] or email to for it to be [...] day. Mounika Roberto PA-C documented in this encounterBlanchard Valley [facility]03-08-2023 Miscellaneous Notes* Telephone Encounter - Berta Ann RN - 01/11/2023 9:47 AM EST Procedure pended for 02/08/23. Pt aware of need for PACC. Pre-op instructions reviewed, will send to pt's MC, per pt request. Postop appt scheduled. No other questions at this time. Berta HENSON, RN Specialty Hand Bender documented in this encounterBlanchard Valley [facility]03-07-2023 History of Present illness Narrative* Winston Hannah DO - 01/10/2023 9:09 AM EST Images from the original note were not included. [facility] [place] Gastroparesis/Dysmotility Follow Up This encounter was provided [...] of care. NAME: Mary Leal CLINIC NO: [id number] CHIEF COMPLAINT Idiopathic Gastroparesis HISTORY OF PRESENT [...] Normal gastric transit Normal small bowel transit [id number] transit in the distal bowel consistent delay [...] (FLONASE) 50 mcg/actuation nasal spray Use 1 Duson in each nostril once daily. carBAMazepine XR [...] THE LUNGS every 4 hours if needed jsztyazrtqi-ngjxbunco-ndlwyefh (TRELEGY ELLIPTA) 100-62.5-25 mcg Inhale 1 Puff [...] dialysis. No history of symptoms or problems. DIRECT SALES REPRESENTATIVE: Negative for abnormal vaginal bleeding, abnormal vaginal [...] and plan of care. documented in this encounterBlanchard Valley [facility]02-23-2023 Miscellaneous Notes* Addendum Note - Yoni Tuttle MD - 12/29/2022 3:37 PM ESTAddended by: YONI TUTTLE MD on: 12/29/2022 03:37 PM Modules accepted: Orders documented in this encounterBlanchard Valley [facility]02-20-2023 History of Present illness Narrative* Deb Booker, RT(R) - 12/26/2022 3:00 PM EST Radiology [...] 26, 2022 3:17 PM documented in this encounterBlanchard Valley [facility]02-17-2023 Miscellaneous Notes* Telephone Encounter - Erica Serrano RN - 12/23/2022 4:36 PM EST Message being addressed in another encounter that was forwarded to provider documented in this encounterBlanchard Valley [facility]02-16-2023 History of Present illness Narrative* Winston Hannah, - 12/22/2022 8:52 AM EST Images from the original note were not included. [facility] [place] Gastroparesis/Dysmotility Follow Up This encounter was provided [...] completed esophagram NAME: Mary Leal CLINIC NO: [id number] CHIEF COMPLAINT Idiopathic Gastroparesis HISTORY OF PRESENT [...] chicken spaghetti etc. Duration of symptoms (months): 9121-7528 Weight changes in last 3 months: Stable [...] Normal gastric transit Normal small bowel transit [id number] transit in the distal bowel consistent delay [...] (FLONASE) 50 mcg/actuation nasal spray Use 1 Duson in each nostril once daily. carBAMazepine XR [...] THE LUNGS every 4 hours if needed jxwwlambocn-tthyaanbu-ksslmmtg (TRELEGY ELLIPTA) 100-62.5-25 mcg Inhale 1 Puff [...] dialysis. No history of symptoms or problems. DIRECT SALES REPRESENTATIVE: Negative for abnormal vaginal bleeding, abnormal vaginal [...] and plan of care. documented in this encounterBlanchard Valley [facility]02-15-2023 NotePROCEDURE: XR FOOT RT MIN 3 [...] Electronically authenticated by: ZAIDA ACOSTA Date: 2022-12-21 12:2402-09-2023 History of Present illness Narrative* Mary Obrien [...] in the AM and 4 mg PM tmmchgcvfpq-znnwynwul-jbqtyyet (TRELEGY ELLIPTA) 100-62.5-25 mcg Inhale 1 Puff [...] which included preparing to see the patient, yeag-oy-zpvb patient care, completing clinical documentation, obtaining and/or reviewing separately obtained history, counseling and educating the patient/family/caregiver, ordering medications, quincy ts, or procedures, communicating with other HCPs (not separately reported), independently interpreting results (not separately reported), communicating results to the patient/family/caregiver, and care coordination (not separately reported). Mary Obrien MD Colorectal Surgery documented in this encounterBlanchard Valley [facility]02-08-2023 Miscellaneous Notes* Telephone Encounter - Emily Benton RN - 12/14/2022 5:19 PM EST Several attempts to reach pt unsuccessful - MC sent. * Telephone Encounter - Barber Marie - 12/02/2022 8:39 AM EST SLEEP PHONE Name of caller: Mary Leal Relationship to patient : Self In-state or aza-rh-htyba patient: In-State Was permission obtained from patient? Yes Patient identified by Name and Date of . ( Mary Leal, 1970). Yes Reason for Call : Patient said her and Emily was chatting through my chart and Emily calledher about 5:15 yesterday. Number to return call [phone] Okay to leave a message ? Yes Last office visit 10/14/[address] Tuttle virtual Next office visit 01/13/[address] Tuttle virtual documented in this encounterBlanchard Valley [facility]02-06-2023 Miscellaneous Notes* Telephone Encounter - Jet [...] and follow up testing return call to [phone] documented in this encounterBlanchard Valley [facility]02-03-2023 Miscellaneous Notes* Telephone Encounter - JAHAIRA [...] patient Summary: As noted Concerns: Procedure results Hand Bender plan for next outreach: Will follow up Signature Nelsy Gilmore RN December 08, 2022 documented in this encounterBlanchard Valley [facility]01-30-2023 Nurse Note* Lisa Contreras RN - 12/05/2022 1:05 PM EST [facility] ENDOSCOPY PRE PROCEDURE CALL Akiko. I'm calling from [facility] endoscopy to provide you with the information for your surgery/procedure tomorrow. 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 tbd What is the best number for your gravel truck driver to be reached at tomorrow for updates? tbd Your gravel truck driver is allowed to wait here [...] Do not wear makeup, lotion, or finger mexican. yes Patient instructed: Please bring a list [...] given Any barriers to Patient learning (confusion? 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 If patient needs to reschedule please call: [phone] [facility] phone number: [phone] Type of instruction given: Verbal by telephone contact. documented in this encounterBlanchard Valley [facility]01-27-2023 Nurse Note* Isra Harman RN - 12/02/2022 10:48 AM EST [facility] ENDOSCOPY PRE PROCEDURE CALL Akiko. I'm calling from [facility] endoscopy to provide you with the information for your surgery/procedure tomorrow. 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 Rich What is the best number for your gravel truck driver to be reached at tomorrow for updates? 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 yes Patient instructed: Please bring a list [...] given Any barriers to Patient learning (confusion? 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 If patient needs to reschedule please call: [phone] [facility] phone number: [phone] Type of instruction given: Verbal by telephone contact. documented in this encounterBlanchard Valley [facility]01-26-2023 NotePROCEDURE: XR FOOT RT MIN 3 [...] Electronically authenticated by: ZAIDA ACOSTA Date: 2022-12-01 11:4201-26-2023 NotePROCEDURE: XR FOOT RT MIN 3 VIEWS, [...] Electronically authenticated by: ZAIDA ACOSTA Date: 2022-12-01 11:4201-25-2023 History of Present illness Narrative* Isra Masters, [...] in the AM and 4 mg PM babhudzwarn-wobcebslg-brwboexp (TRELEGY ELLIPTA) 100-62.5-25 mcg Inhale 1 Puff [...] no edema RESPIRATORY: No dyspnea : neg DIRECT SALES REPRESENTATIVE: neg The remainder of the review of [...] Isra Masters DO 11/30/2022 documented in this encounterBlanchard Valley [facility]01-19-2023 Miscellaneous Notes* Telephone Encounter - Erica Serrano RN - 11/24/2022 3:20 PM EST This concern was addressed in the phone encounter on 11/24/22. Patient was called back and informed [employer] will complete Prior Authorization for her sleep study. documented in this encounterBlanchard Valley Health [facility]01-19-2023 Miscellaneous Notes* Telephone Encounter - Erica [...] Relationship to patient : Self In-state or gfg-rr-dtvmh patient: In-State Was permission obtained from patient? Yes Patient identified by Name and Date of . ( Mary Leal, 1970). Yes Reason for Call : Patient stated she spoke to her insurance and they told her that the provider need to call [facility] to see if a PA is needed for the PAP Titration. Number to return call [phone] Okay to leave a message ? Yes Last office visit 10/14/[address] Tuttle virtual Next office visit None documented in this encounterBlanchard Valley Health [facility]01-19-2023 History of Present illness Narrative* Isra Masters DO - 11/24/2022 8:29 AM EST Images from the original note were not included. SmartPill Test Report - [id number] Test start date: 11/17/2022 10:03 AM Drum Builder: [email or web address] Interpretation date: 11/24/2022 Ordering physician: Isra Masters DO Referring physician: Patient Information Name: Mary Leal. ID: [id number] date: 1970 Height ft. in.: 5' 4 [...] Normal gastric transit Normal small bowel transit [id number] transit in the distal bowel consistent delay post anastomosis Signature _Dr. Masters Date _11/24/2022 documented in this encounterBlanchard Valley [facility]01-17-2023 Miscellaneous Notes* Telephone Encounter - Regina Philippe - 11/22/2022 3:37 PM EST Patient calling to verify that Smart Pill monitor was received at A[facility]. Monitor was sent via Fed Ex on 11/19/22. Patient is requesting a confirmation. documented in this encounterBlanchard Valley [facility]01-16-2023 Miscellaneous Notes* Telephone Encounter - Erica Serrano RN - 11/21/2022 9:11 AM EST [employer] message sent to patient. Prior Sleep study forwarded to MD to review, Order pended for PAP-titration for provider to review and sign if necessary. documented in this encounterBlanchard Valley Health [facility]01-16-2023 History and physical note * Yodit Back PA-C - 11/21/2022 8:00 AM EST [facility]ES[facility]ULT [facility] TELEHEALTH VISIT Patient has been identified by name and date of : Yes This is a virtual visit using [employer] video visit. It require patient-provider interaction for [...] in the AM and 4 mg PM hcspwlynurn-iavezvrfa-soehvail (TRELEGY ELLIPTA) 100-62.5-25 mcg Inhale 1 Puff as instructed once daily. No current facility-administered medications for this visit. COVID VACCINATION STATUS: Fully vaccinated REVIEW OF SYSTEMS: Pain Assessment: General: No weight loss, malaise or fevers. Neuro: No history of TIA's, stroke, REGIONAL BUSINESS MANAGER tumor, impaired sensorium, hemiplegia, paraplegia or quadraplegia. [...] requiring medication, no history of angina, CHF, [place], cardiac surgery or stents. Denies rest pain, gangrene or revascularization/amputation for PVD. No history of cardiovascular symptoms or problems. + HLD GI: See HPI : No history of dysuria, frequency or incontinence,, stones or chronic kidney disease DIRECT SALES REPRESENTATIVE: Negative for abnormal vaginal bleeding, abnormal vaginal [...] 8:07 AM PAGER/CONTACT #: documented in this encounterBlanchard Valley [facility]01-12-2023 Miscellaneous Notes* Addendum Note - Yoni Tuttle MD - 11/17/2022 3:16 PM ESTAddended by: YONI TUTTLE MD on: 11/17/2022 03:16 PM Modules accepted: Orders * Telephone Encounter - Yoni Tuttle MD - 11/17/2022 3:11 PM EST 09/22/22: PSG from [facility]: Total (RDI) AHI by 3% desat 27.1, [...] - 11/02/2022 12:33 PM EST Received from [facility] Sleep Laboratory Report via fax. 8 pages indexed to chart. documented in this encounterBlanchard Valley [facility]01-12-2023 History of Present illness Narrative* Annmarie [...] complete. You will be wearing a Data Tuber Operator around your neck like a necklace during the test. You must keepthis near you at all times. The Data Tuber Operator has an EVENT button. You will be [...] is inside your body. Return the Data Tuber Operator to the [facility] after your test is completed. Brittanie Gillespie RN documented in this encounterBlanchard Valley Health System [facility]01-09-2023 NotePROCEDURE: XR FOOT RT MIN 3 [...] authenticated by: ZAIDA ACOSTA Date: 2022-11-14 10:39The [facility] [id number] NotePROCEDURE: XR FOOT RT MIN 3 VIEWS [...] authenticated by: NICKI DACOSTA Date: 2022-11-10 11:44The [facility] [id number] Miscellaneous Notes* Telephone Encounter - Annmarie Gillespie RN - 11/10/2022 9:07 AM EST Telephoned patient with SmartPill procedure appointment reminder/instructions. Brittanie Gillespie RN documented in this encounterBlanchard Valley Health [facility]01-04-2023 Miscellaneous Notes* Telephone Encounter - Regina [...] to make it legit. documented in this encounterBlanchard Valley [facility]01-04-2023 Miscellaneous Notes* Telephone Encounter - Wali Doll - 11/09/2022 9:47 AM EST SENT PATIENTS RX TO PREFERRED LOCATION [facility] [phone] Wali Doll STONE SETTER METAL [employer]ICAL FRAMES documented in this encounterBlanchard Valley Health [facility]01-03-2023 Miscellaneous Notes* Telephone Encounter - Regina Pihlippe - 11/08/2022 11:15 AM EST Per Soumya in provider services at [facility]. No prior auth is needed,coverage is active, patient can proceed with Smart Pill. Placed a new referral. Call Ref # [id number] * Telephone Encounter - Regina Philippe - 11/02/2022 3:51 PM EST Spoke with patient. Smart Pill is a covered benefit. Sent email to Smart Pill master scheduler and [facility] to assist in scheduling Smart Pill [...] procedure, she can call Earlene Martin at [phone]. documented in this encounterBlanchard Valley [facility]12-19-2022 Miscellaneous Notes* Telephone Encounter - Steffi [...] EST Mary Leal is calling Isra Masters, today with concern regarding her smart pill patient stated she has been calling and there has not been a response patient would like to know what would Dr. Masters like her to do so she can get scheduled with them please advise. Patient has been identified by name and birthdate. Person calling: self Call patient at: at home [phone] (home) [phone] (cell) Closing statement: Symptom Call: Thank you for calling [facility], your call is very important. A nurse will call in approximately 2-4 hours during business hours. If this is an emergency, please contact 911. Nati Martinez documented in this encounterBlanchard Valley Health [facility]12-13-2022 Miscellaneous Notes* Telephone Encounter - Brooklyn Valle LPN - 10/18/2022 2:43 PM EST Requested Prescriptions Pending Prescriptions Disp Refills Dexlansoprazole 60 mg CpDM [Pharmacy Med Name: DEXLANSOPRAZOLE DR 60 MG CAP] 30 capsule 5 Sig: take 1 capsule by mouth before breakfast Patient last seen 10/11/2022 documented in this encounterBlanchard Valley Health [facility]12-12-2022 NotePROCEDURE: XR FOOT RT MIN 3 [...] Electronically authenticated by: NICKI DACOSTA Date: 2022-10-17 18:0612-12-2022 NotePROCEDURE: XR FOOT RT MIN 3 VIEWS, [...] Electronically authenticated by: NICKI DACOSTA Date: 2022-10-17 18:0612-12-2022 Miscellaneous Notes* Telephone Encounter - Wali Doll - 10/17/2022 9:17 AM EST Faxed order, office notes, demographics, and sleep study to: DME name: MICHAEL [facility] fax: [phone] SAIMA ph: ALSO SENT A REQUEST FOR PTS PSG FROM [facility] IN [place] documented in this encounterBlanchard Valley Health [facility]12-06-2022 History of Present illness Narrative* Isra [...] (FLONASE) 50 mcg/actuation nasal spray Use 1 Duson in each nostril once daily. carBAMazepine XR (TEGRETOL XR) 400 mg 12 hr tablet Take 400 mg by mouth q 12 HR. ARIPiprazole (ABILIFY) 30 mg tablet Take 30 mg by mouth once daily. albuterol HFA (PROVENTIL HFA, VENTOLIN HFA) 90 mcg/actuation inhaler inhale 2 puffs by mouth INTO THE LUNGS every 4 hours if needed smhvpmykoim-cwetaalfg-xmsjjwcf (TRELEGY ELLIPTA) 100-62.5-25 mcg Inhale 1 Puff [...] no edema RESPIRATORY: No dyspnea : neg DIRECT SALES REPRESENTATIVE: neg The remainder of the review of [...] Isra Masters DO 10/11/2022 documented in this encounterBlanchard Valley Health [facility]12-05-2022 Evaluation note* Encounter Date Diagnosis Assessment [...] for rotator cuff healing or recurrent tear [facility] Other 12-01-2022 Evaluation note* Encounter Date Diagnosis [...] note writ ten by Wanda Yang LPN, Range Manager. Edited and approved by Dr. Beto Snyder MD. [facility] Other 11-17-2022 Evaluation note* Encounter Date Diagnosis [...] regarding the risks and benefits of terminal system operator opioid use. She understands the associated [...] note writ ten by Lupillo Amezquita MA, Range Manager. Edited and approved by Dr. Beto Snyder MD. [facility] Other 11-17-2022 Evaluation note* Encounter Date Diagnosis Assessment Notes Treatment Notes Treatment Clinical Notes Sep, Lumbosacral spondylosis without myelopathy (ICD-10 - M47.817) [facility] Other 11-09-2022 Evaluation note* Encounter Date Diagnosis [...] note writ ten by Wanda Yang LPN, Range Manager. Edited and approved by Dr. Beto Snyder MD. [facility] Other 09-21-2022 NotePROCEDURE: XR ANKLE RT MIN 3 VIEWS, XR FOOT RT MIN 3 VIEWS COMPARISON: 01/06/2021 HISTORY: Pain of right ankle joint FINDINGS: BONES:Remote osteotomy head of the first metatarsal fixed with a single screw. No acute fracture or dislocation. SOFT TISSUES:Negative. No visible soft tissue swelling. EFFUSION:None visible. OTHER: Negative. IMPRESSION: No acute abnormality Electronically authenticated by: NICKI DACOSTA Date: 2022-07-27 19:[address] [place], [place] 9915509-21-2022 NotePROCEDURE: XR ANKLE RT MIN 3 VIEWS, XR FOOT RT MIN 3 VIEWS COMPARISON: 01/06/2021 HISTORY: Pain of right ankle joint FINDINGS: BONES:Remote osteotomy head of the first metatarsal fixed with a single screw. No acute fracture or dislocation. SOFT TISSUES:Negative. No visible soft tissue swelling. EFFUSION:None visible. OTHER: Negative. IMPRESSION: No acute abnormality Electronically authenticated by: NICKI DACOSTA Date: 2022-07-27 19:[facility]09-20-2022 Miscellaneous Notes* Telephone Encounter - Silvia Ybarra - 07/26/2022 2:56 PM EDT PA for Dexlansoprazole initiated electronically. Awaiting response [employer] ID# [id number] * Telephone Encounter - Tracy HUNTER - 07/26/2022 1:43 PM EDT Patient needs a prior authorization Medication Order name: Dexlansoprazole 60 mg CpDM Medication: DEXLANSOPRAZOLE 60 MG CAPSULE,BIPHASE DELAYED RELEASE [[id number]] Dispense as Written: No documented in this encounterBlanchard Valley [facility]09-20-2022 History of Present illness Narrative* Mary Obrien MD - 07/26/2022 11:20 AM EDT COLORECTAL SURGERY July 26, 2022 Maryjonathan Ornelasgs Chief Complaint: post op visit/ colonic [...] in the AM and 4 mg PM qdslovkyyjt-otfbyqdcy-hvxfgeqm (TRELEGY ELLIPTA) 100-62.5-25 mcg Inhale 1 Puff [...] (FLONASE) 50 mcg/actuation nasal spray Use 1 Duson in each nostril once daily. carBAMazepine XR [...] which included preparing to see the patient, bakk-zy-pdek patient care, completing clinical documentation, obtaining and/or reviewing separately obtained history, performing a medically appropriate examination, counseling and educating the pat ient/family/caregiver, ordering medications, tests, or procedures, and care coordination (not separately reported). Mary Obrien MD Colorectal Surgery documented in this encounterBlanchard Valley [facility]09-20-2022 Nurse Note* Re Sierra MA - 07/26/2022 11:12 AM EDT What is the reason for your visit today? Established patient presents for post op. Who is your referring physician? Are you having poor oral intake? NO Have you had unintentional weight loss of 15 lbs/7 Kg in the last 3-6 months? NO Bowels: Wound: none Temperature: No Drains: No documented in this encounterBlanchard Valley [facility]08-04-2022 NotePROCEDURE: In the coronal projection, without [...] and signed by Quinton Carson on 06/09/2022 1113No[facility]08-02-2022 Miscellaneous Notes* Telephone Encounter - Raquel Mullen - 06/07/2022 3:34 PM EDT Patient needs RX sent to [facility] in [facility]. The previous was sent to pharmacy [...] process accordingly. Raquel Mullen documented in this encounterBlanchard Valley [facility]07-21-2022 Evaluation note* Encounter Date Diagnosis Assessment [...] note writ ten by Lupillo Amezquita MA, Range Manager. Edited and approved by Dr. Beto Snyder MD. [employer] Other 07-05-2022 Evaluation note* Encounter Date Diagnosis [...] Patient care instructions given in writing by [facility] document. [employer] Other [phone] Miscellaneous Notes* Telephone Encounter - Jet Wong [...] concerns at this time. documented in this encounterBlanchard Valley [facility]06-21-2022 Miscellaneous Notes* Telephone Encounter - Jet [...] procedure on 03/28. Thanks! documented in this encounterBlanchard Valley [facility]06-17-2022 History of Present illness Narrative* Jessi Sheets APRN.HOUSE BUILDER - 04/22/2022 12:20 PM EDT COLORECTAL SURGERY [...] TONSILLECTOMY HX 07/2021 revision VAGINAL HYSTERECTOMY 2014 [facility] 10/2015 for endometriosis, has [...] (FLONASE) 50 mcg/actuation nasal spray Use 1 Duson in each nostril once daily. carBAMazepine XR [...] THE LUNGS every 4 hours if needed rnsanxdkomp-oumkktkzo-uokdxzkk (TRELEGY ELLIPTA) 100-62.5-25 mcg Inhale 1 Puff [...] and/or complications of treatment plan: jesu Sheets APRN.HOUSE BUILDER Colorectal Surgery documented in this encounterBlanchard Valley [facility]06-17-2022 Nurse Note* Mayr Mena MA - 04/22/2022 12:06 PM EDT .What is the reason for your visit today? Post op Who is your referring physician? Self Are you having poor oral intake? NO Have you had unintentional weight loss of 15 lbs/7 Kg in the last 3-6 months? NO Bowels: regular Wound: none Temperature: No Drains: No documented in this encounterBlanchard Valley [facility]06-02-2022 Miscellaneous Notes* Telephone Encounter - Rachael - 04/07/2022 12:35 AM EDT Record ID: [id number] Patient name: Mary Leal Date: April 06, [...] likely is it that you would recommend [facility] to a friend or family member? -> likely Please tell me what you liked best about your hospital experience: -> The nurses documented in this encounterBlanchard Valley [facility]05-31-2022 NoteHNO ID: [id number] Author: Pravin Ladd MD Service: Colorectal Author Type: Resident Type: Progress Notes Filed: 04/05/2022 7:52 AM Note Text: COLORECTAL SURGERY PROGRESS NOTE Mary Leal [id number] ASSESSMENT AND PLAN Mary Leal is a [...] - General Pravin Ladd MD General Surgery residentMetropolitan State HospitalZorfjcit35-53-7782 NoteHNO ID: [id number] Author: Nita Lamas MD Service: Colorectal Author Type: Fellow Type: Progress Notes Filed: 04/04/2022 9:40 AM Note Text: COLORECTAL SURGERY PROGRESS NOTE Mary Leal [id number] ASSESSMENT AND PLAN Mary Leal is a [...] Nita Lamas MD Colorectal Fellow 04/04/2022 9:40 [facility]05-29-2022 NoteHNO ID: [id number] Author: Pravin Ladd MD Service: Colorectal Author Type: Resident Type: Progress Notes Filed: 04/03/2022 8:03 AM Note Text: COLORECTAL SURGERY PROGRESS NOTE Mary Leal [id number] ASSESSMENT AND PLAN Mary Leal is a [...] - General Pravin Ladd MD General Surgery ResidentMetropolitan State HospitalQhgpplvc63-14-6784 NoteHNO ID: [id number] Author: Nancy Cadena MD Service: Colorectal Author Type: Resident Type: Progress Notes Filed: 04/02/2022 8:34 AM Note Text: COLORECTAL SURGERY PROGRESS NOTE Mary Leal [id number] ASSESSMENT AND PLAN Mary Leal is a [...] Nancy Cadena MD General Surgery Resident, PGY-2 [id number] NoteHNO ID: [id number] Author: Nancy Cadena MD Service: Colorectal Author Type: Resident Type: Progress Notes Filed: 04/01/2022 7:15 AM Note Text: Attestation signed by Mary Obrien MD at 04/01/2022 7:21 PM [facility] STAFF PHYSICIAN NOTE OF [...] 2022 COLORECTAL SURGERY PROGRESS NOTE Mary Leal [id number] ASSESSMENT AND PLAN Mary Zoya Leal is [...] Nancy Cadena MD General Surgery Resident, PGY-2 [id number] [id number] NoteHNO ID: [id number] Author: Yolanda Cervantes MD Service: Colorectal Author Type: Resident Type: Progress Notes Filed: 03/31/2022 9:08 AM Note Text: COLORECTAL SURGERY PROGRESS NOTE Mary Leal [id number] ASSESSMENT AND PLAN Mary Leal is a [...] ENTEROSTOMY W/ RESECTION AND ANASTOMOSIS - General Zane Harrisirview Jlsyitzb61-81-7624 NoteHNO ID: [id number] Author: Pravin Ladd MD Service: Colorectal Author Type: Resident Type: Progress Notes Filed: 03/30/2022 9:02 AM Note Text: Attestation signed by Mary Obrien MD at 03/30/2022 4:01 PM [facility] STAFF PHYSICIAN NOTE OF [...] 2022 COLORECTAL SURGERY PROGRESS NOTE Mary Leal [id number] ASSESSMENT AND PLAN Mary Leal is a 51 year old female with PMHx Asthma, HTN, BPD, Dyslipidemia and colonic inertia who is now s/p Hand assisted TAC, EI takedown + OANH 03/28 - D/C LIBRARY PAGE - Advance to GI soft diet - [...] RESECTION AND ANASTOMOSIS - General Pravin Ladd MDMetropolitan State HospitalDvhhbday06-44-2407 NoteHNO ID: [id number] Author: ELIZABETH Dias Service: Care Management Author Type: Clothes Drier Assembler Type: Care Mgt Initial Assessment Filed: 03/29/2022 [...] time ADVANCE DIRECTIVES Current Advance Directive: None Print Press Operator Attempted to Assist with AD Completion: Yes [...] Housing Stability: Not on file PATIENT SCREEN Patient/Compliance Nurse Stated Goals: To be cured/healed Under the [...] March 29, 2022 TIME: 3:45 PM PHONE: [phone] [id number] NoteHNO ID: [id number] Author: Pravin Ladd MD Service: Colorectal Author Type: Resident Type: Progress Notes Filed: 04/01/2022 5:50 AM Note Text: COLORECTAL SURGERY PROGRESS NOTE Mary Leal [id number] ASSESSMENT AND PLAN Mary Leal is a 51 year old female with PMHx Asthma, HTN, BPD, Dyslipidemia and colonic inertia who is now s/p Hand assisted TAC, EI takedown + OANH 03/28 - LIBRARY PAGE for pain control - Magnesium replacement for [...] RESECTION AND ANASTOMOSIS - General Pravin Ladd MDMetropolitan State HospitalCdlnbszc16-44-7182 NoteHNO ID: [id number] Author: Nathanael Craig DO Service: Anesthesiology Author Type: Anesthesiologist Type: Anesthesia Procedure Notes Filed: 03/28/2022 4:16 PM Note Text: ANESTHESIOLOGY PROCEDURE NOTE Peripheral Nerve Block General Information Procedure Start Time/Medication Administration: 03/28/2022 3:50 PM Procedure End time: 03/28/2022 3:55 PM Patient location during procedure: OR Timeout Performed Pre-procedure: timeout performed Consent Obtained: Yes 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: care steam tender and arm band Reason for block: post-op [...] identity confirmed: arm band and care steam tender Reason for block: post-op pain management/at surgeon's [...] March 28, 2022 TIME: 4:14 PM CSN: [id number] [id number] NoteHNO ID: [id number] Author: Adriana Stanley APRN.YOKE SETTER Service: Anesthesiology Author Type: Nurse Yeast Culture Operator Type: Anesthesia Procedure Notes Filed: 03/28/2022 9:49 AM Note Text: ANESTHESIOLOGY PROCEDURE NOTE Airway General Information Procedure Start Time/Medication Administration: 03/28/2022 9:21 AM Patient location during procedure: OR 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, care steam tender and patient Staffing YOKE SETTER: Adriana Stanley APRN.YOKE SETTER Performed by: YOKE SETTER Indications and Patient Condition Preoxygenated: yes Difficult [...] March 28, 2022 TIME: 9:49 AM CSN: [id number] [id number] NoteHNO ID: [id number] Author: Adriana Stanley APRN.CRNA Service: Anesthesiology Author Type: Nurse Yeast Culture Operator Type: Anesthesia Procedure Notes Filed: 03/28/2022 9:49 [...] March 28, 2022 TIME: 9:48 AM CSN: [id number] [id number] Miscellaneous Notes* Telephone Encounter - Jet Wong [...] colon. Would like a call back at [phone] documented in this encounterBlanchard Valley [facility]05-10-2022 Miscellaneous Notes* Telephone Encounter - Jennie Moreno RN - 03/15/2022 2:39 PM EDT Outside medical record EGD H Pylori biopsy received by fax. Scanned into [employer] under scanned documents. Hard copy handed to Dr. Masters. Per Dr Masters- please call patient and let her know the H Pylori biopsy is negative. Called patient . Message relayed. No questions at this time. * Telephone Encounter - Karthikeyan Turk RN - 03/15/2022 2:21 PM EDT Called [facility] and I was transferred to medical records. Requesting a cover sheet with the request result be faxed to them at [phone]. H Pylori result request faxed with confirmation. * Telephone Encounter - Karthikeyan Turk RN - 03/15/2022 2:21 PM EDT Images from the original note were not included. DO Leo Mariano Sp Dd Clinical Pool Please contact [facility] [facility] [phone] to see if the H pylori biopsy is back yet from her EGD there documented in this encounterBlanchard Valley [facility]05-10-2022 Evaluation note* Encounter Date Diagnosis Assessment [...] note writ ten by Wanda Yang LPN, Range Manager. Edited and approved by Dr. Beto Snyder MD. [employer] Other 05-10-2022 Miscellaneous Notes* Telephone Encounter - Silvia Ybarra - 03/15/2022 1:24 PM EDT PA for Dexilant renewal initiated through [employer]. Awaiting response ID# [id number] Rx BIN [id number] Rx PCN [id number] Rx Grp [id number] documented in this encounterBlanchard Valley [facility]05-10-2022 Miscellaneous Notes* Telephone Encounter - Jet [...] concerns at this time. documented in this encounterBlanchard Valley [facility]05-10-2022 History of Present illness Narrative* Isra Masters, DO - 03/15/2022 8:53 AM EDT FOLLOW [...] (FLONASE) 50 mcg/actuation nasal spray Use 1 Duson in each nostril once daily. carBAMazepine XR [...] THE LUNGS every 4 hours if needed hjvozjncinx-sqnybegcb-jytskfli (TRELEGY ELLIPTA) 100-62.5-25 mcg Inhale 1 Puff [...] no edema RESPIRATORY: No dyspnea : neg DIRECT SALES REPRESENTATIVE: neg The remainder of the review of [...] Isra Masters DO 03/15/2022 documented in this encounterBlanchard Valley [facility]05-09-2022 Instructions* Patient Instructions* Urmila Alexander APRN.HOUSE BUILDER - 03/14/2022 10:43 AM EDT PATIENT PREOPERATIVE INSTRUCTIONS Mary Obrien MD has scheduled you for your procedure at [facility]: [phone] --[address] [address]. Please check in on the1st floor at [...] Procedures: - YOU MUST HAVE A RESPONSIBLE PETROLEUM REFINERY LABORER TAKE YOU HOME. A HEALTH INSURANCE ADJUSTER OR LAP POLISHER CANNOT BE MADE A RESPONSIBLE PETROLEUM REFINERY LABORER. - We recommend that a responsible person [...] Advance Directive, please fax a copy to [phone] or email to for it to be [...] your chart that day. documented in this encounterBlanchard Valley [facility]05-09-2022 History and physical note * Urmila [...] fevers. Neurological: No history of TIA's, stroke, REGIONAL BUSINESS MANAGER tumor, impaired sensorium, hemiplegia, paraplegia orquadraplegia. No [...] > 1 time per night or hematuria. DIRECT SALES REPRESENTATIVE: Negative for abnormal vaginal bleeding, abnormal vaginal [...] every 4 hours if needed Taking Yes ymeoriwyedo-qtabymamf-kdaxqnel (TRELEGY ELLIPTA) 100-62.5-25 mcg Inhale 1 Puff [...] (FLONASE) 50 mcg/actuation nasal spray Use 1 Duson in each nostril once daily. No medication [...] or any previous visit (from the past 52076 hour(s)). EKG: Assessment HTN (hypertension) Assessment: Managed [...] of difficult airway No abnormal airway history [id number] Score: Age: <65 Sex: Female Hypertension history: [...] 10:30 AM PAGER/CONTACT #: documented in this encounterBlanchard Valley [facility]04-25-2022 Miscellaneous Notes* Telephone Encounter - Isra [...] Monday, 03/02, at 0900 - routed to [employer] to make it legit. Please advise. documented in this encounterBlanchard Valley [facility]04-15-2022 Instructions* Patient Instructions* Nelsy Chávez APRN.CNP - 02/18/2022 1:18 PM EDT Healing as expected from surgery. You have a pinpoint area of suture just under the vaginal epithelium surface that may need more time to fully heal. Please call the office if you would like to try vaginal estrogen cream or with any questions/concerns. documented in this encounterBlanchard Valley [facility]04-15-2022 History of Present illness Narrative* Nelsy [...] no Pain: no Abnormal Vaginal Discharge: no DIRECT SALES REPRESENTATIVE HISTORY: Last pap: cannot remember; Last mammogram: She has never had a mammogram LMP: No LMP recorded. Patient has had a hysterectomy.; Menopause n/a: Menstrual history: NA; Deliveries: I have confirmed and edited as necessary, the PFSH obtained by others. Nelsy Chávez APRN.CNP [employer] Routeman offered: Patient declines. OBJECTIVE: There were no [...] if this helps. She is [place] to [place] to see her ailing father for two weeks and would like to wait for now to see if things resolve. She knows she can call the office if she changes her mind and would like to trial vaginal estrogen Nelsy Chávez APRN.KWESI documented in this encounterBlanchard Valley [facility]04-08-2022 History of Present illness Narrative* Flaca [...] 15 Flaca Bartholomew PT documented in this encounterBlanchard Valley Health [facility]04-05-2022 Nurse Note* Re Sierra MA - [...] Temperature: No Drains: No documented in this encounterBlanchard Valley Health [facility]04-05-2022 History of Present illness Narrative* Mary Obrien MD - 02/08/2022 2:40 PM EDT COLORECTAL SURGERY February 08, 2022 Mary Zoya Elvis Chief Complaint: follow up History of Present [...] TONSILLECTOMY HX 07/2021 revision VAGINAL HYSTERECTOMY 2014 [facility] 10/2015 for endometriosis, has [...] (FLONASE) 50 mcg/actuation nasal spray Use 1 Duson in each nostril once daily. carBAMazepine XR [...] THE LUNGS every 4 hours if needed ronwmlxnxgi-csbatqhxf-pmowmrsz (TRELEGY ELLIPTA) 100-62.5-25 mcg Inhale 1 Puff [...] medical complications of surgery including DVT/PE, PNA, [place], stroke, and . The patient understands these risks and is in agreement with proceeding. Medical Decision Making: Data Reviewed: Tests & Documents Reviewed/ordered: Review of prior notes from myself, OR, Dr. Wang Review of prior operative reports I have discussed Mary Leal's treatment plan and/or results with the patient. Mary Obrien MD Colorectal Surgery documented in this encounterBlanchard Valley [facility]04-05-2022 History of Present illness Narrative* Magali Mitchell APRN.[facility] - 02/08/2022 11:04 AM EDT Female [...] you received about pain medications helpful? Yes Jukebox Routeman offered:Patient declines OBJECTIVE: BP 113/76 Pulse 74 [...] 6 month Patient expressed understanding. Magali Mitchell APRN.HOUSE BUILDER documented in this encounterBlanchard Valley Health [facility]03-29-2022 Miscellaneous Notes* Telephone Encounter - Steffi Ross LPN - 02/01/2022 11:08 AM EDT [facility] 06-10-21 Pharmacy and Rx request verified. Please file if appropriate. Thank you Steffi Ross LPN documented in this encounterBlanchard Valley Health [facility]03-28-2022 NoteHNO ID: [id number] Author: Newton Woodward PT Service: ? Author Type: Physical Therapist Type: Progress Notes Filed: 01/31/2022 1:23 PM Note Text: Episode Visit Count: 3 Therapist That Will Oversee The Plan Of Care: [place] then transfer to [facility] Start of Care Date: 01/18/22 Onset Date: [...] Service Patient transferring care to: [facility] Flaca Bartholomew SUBJECTIVE: Patient Reason for Visit: [...] untimed codes) : 40 Newton Woodward PT, [facility]03-28-2022 History of Present illness Narrative* Newton [...] THERAPY PHYSICAL THERAPY TREATMENT NOTE ASSESSMENT: Mary oZya Ornelasgs tolerated the session with no issues. She [...] Service Patient transferring care to: [facility]- Flaca [place] SUBJECTIVE: Patient Reason for Visit: lack of [...] Newton Woodward PT, DPT documented in this encounterBlanchard Valley [facility]03-21-2022 NoteHNO ID: [id number] Author: Newton Woodward PT Service: ? Author Type: Physical Therapist Type: Progress Notes Filed: 01/24/2022 1:23 PM Note Text: Episode Visit Count: 2 Therapist That Will Oversee The Plan Of Care: [facility] Date: 01/18/22 Onset Date: [...] untimed codes) : 45 Newton Woodward PT, [facility]03-15-2022 NoteHNO ID: [id number] Author: Jessi Isaacs PT Service: ? Author Type: Physical Therapist Type: Progress Notes Filed: 01/18/2022 1:56 PM Note Text: Episode Visit Count: 1 Therapist That Will Oversee The Plan Of Care: La then transfer to [facility] Flaca Start of Care Date: 01/18/22 Onset [...] Planned: 8 Planned Treatment Interventions: Therapeutic exercise (75907);Neuromuscular re-education (37236);Manual therapy (29589);Therapeutic activities (89640);Self-long term management (21474);Patient/Family/Caregiver Education PLAN FOR NEXT VISIT: PFM dynamics; biofeedback Patient demonstrates good understanding of plan of care and treatment. The above goals and plan of care were discussed and agreed upon by patient/family. Transfer of Care Due To: Closer to Home (patient to transfer in February 2022) Patient transferring care to: [facility] Flaca Bartholomew SUBJECTIVE: Mary Leal is a [...] function/quality of life. 50 (more content not included)...[facility] CenterZzxrgggf69-57-8619 NoteHNO ID: [id number] Author: Moni Munguia RN Service: Care Management Author Type: Registered Nurse Type: Care Mgt Progress Note Filed: 12/27/2021 4:17 PM Note Text: CARE MANAGEMENT DISCHARGE NOTE SERVICE DATE: 12/27/2021 SERVICE TIME: 4:14 PM LOS: 3 days Admission Date: 12/24/2021 DISCHARGE ARRANGEMENT (list agency and phone number) Discharge Arrangement: Home with Home Health [facility] CAREGIVER ASSESSMENT: HANDOFF COMMUNICATION: Handoff to: Primary Care Physician Primary Care Physician Name/Phone: Eliceo Gómez Jr [phone] TRANSPORTATION ARRANGEMENTS: Transportation Arrangements: N/A The Pt is accepted by [address] for new ostomy care. The SOC will be within 24 to 48 hrs. The pt will be contacted directly with the SOC. The Pt verbalized agreement with this dc plan. SIGNATURE: Moni Munguia RN PATIENT NAME: Mary Leal DATE: December 27, 2021 TIME: 4:14 PM PAGER/CONTACT #: [phone] [id number] NoteHNO ID: [id number] Author: Parish Celeste DO Service: Colorectal Author [...] - Pain and nausea control -> d/c LIBRARY PAGE - D/c entereg - [employer] - Continue [...] 0659 12/27/21 07 - 12/28/21 0659 Shift 2994-4922 4590-6590 2903-1500 24 Hour Total 4816-8855 4727-6738 8316-5436 24 Hour Total INTAKE PO 60 60 PO 60 60 IV 2099 2099 Volume (mL) (lactated ringers iv infusion) 2099 2099 Shift Total 2160 2160 OUTPUT Urine 9086 240 9174 2300 200 200 Void (ml) 300 1000 1300 200 200 Output ( Indwelling Urinary Catheter 12/24/21 Call 16 Fr) 1000 1000 Emesis 0 0 Emesis (ml) 0 0 Ostomy 250 125 375 Ileostomy 1 250 125 375 # of BMs Number of BMs 0 x 0 x Shift Total 3022 776 1420 2675 200 200 Weight (kg) 82.1 82.1 82.1 82.1 82.1 82.1 82.1 82.1 Recent Labs 12/26/21 0755 12/25/21 0606 WBC -- 5.96 HB -- 11.6 HCT -- 35.2* PLT -- 271 NA 139 141 K 4.0 4.0 CHLOR 102 104 CO2 28 28 CREAT 0.62* 0.72 BUN 10 12 GLUC 71 91 CA 8.5 8.5 Parish Celeste DO General Surgery, PGY-4 [id number] After 6 pm and on the weekends please page [phone] 12-26-2021 NoteHNO ID: [id number] Author: Jenifer Ayala MD Service: Colorectal Author Type: Fellow Type: Progress Notes Filed: 12/26/2021 12:13 PM Note Text: GENERAL SURGERY PROGRESS NOTE Name: Mary Leal 12/26/2021 12:11 PM Interval Events: Patient doing well post-operatively. No acute events overnight. Tolerating CLD diet without nausea or vomiting. Stoma productive of bilious fluid + gas Pain well controlled with LIBRARY PAGE + oral pain medication (feels most relief from po oxycodone). Assessment and Plan: 51 year old female with pelvic organ prolapse and chronic constipation, likely slow transit but with possible component of pelvic outlet obstruction and with discordant testing. Patient underwent laparoscopic protopexy on 12/24/21 surgery was uneventful. Post-operative course has been uncompliacted. Pain control- Tylenol Gabapentin Toradol LIBRARY PAGE: Dilaudid, tegretol, klonopin, requip, trintellix, oxycodone Cardiac- [...] any questions or concerns page [facility] [id number] Objective Physical exam: BP 117/66 Pulse 77 [...] 0659 12/26/21 07 - 12/27/21 0659 Shift 9006-0278 3879-5771 5788-5300 24 Hour Total 2845-8770 0686-7858 1980-9586 24 Hour Total INTAKE PO 60 60 PO 60 60 IV 213 668 881 Volume (mL) (lactated ringers iv infusion) 213 668 881 Shift Total 273 668 941 OUTPUT Urine 339 370 7483 1000 Void (ml) 0 0 Output ( Indwelling Urinary Catheter 12/24/21 Call 16 Fr) 673 900 7633 1000 Emesis 0 0 Emesis (ml) 0 0 Ostomy 100 100 Ileostomy 1 100 100 # of BMs Number of BMs 0 x 0 x Shift Total 333 498 9014 1000 Weight (kg) 82.1 82.1 82.1 82.1 [...] Diagnosis Date Noted - Pelvic floor dysfunction 12/24/2021[facility] HospitalTnoeeetd52-21-1744 NoteHNO ID: [id number] Author: Sonido Owen MD Service: Colorectal Author [...] been uncompliacted. Pain control- Tylenol Gabapentin Toradol LIBRARY PAGE: Dilaudid, tegretol, klonopin, requip, trintellix Cardiac- Vitals: [...] Owen MD General Surgery PGY 2 Pg [phone] For any questions or concerns page [facility] [id number] Objective Physical exam: BP 111/61 Pulse 86 [...] Date 12/24/21 07 - 12/25/21 0659 12/25/21 0700 - 12/26/21 0659 Shift 4065-1725 8627-5984 6765-7844 24 Hour Total 9007-9257 7534-8680 3311-2423 24 Hour Total INTAKE PO 240 120 360 PO 240 120 360 IV 3100 3100 Volume (mL) (lactated ringers iv infusion) 1800 1800 Volume (mL) (lactated ringers iv infusion) 1300 1300 Shift Total 3100 718 649 2652 OUTPUT Urine 200 947 848 6540 OR Urine Output 200 200 Output ( Indwelling Urinary Catheter 12/24/21 Call 16 Fr) 300 500 800 Emesis 0 0 0 Emesis (ml) 0 0 0 Ostomy 0 0 0 Ileostomy 1 0 0 0 # of BMs Number of BMs 0 x 0 x 0 x Blood 50 50 Estimated Blood loss 50 50 Shift Total 250 325 636 6822 Weight (kg) 82.1 82.1 82.1 82.1 82.1 [...] Diagnosis Date Noted - Pelvic floor dysfunction [id number] NoteHNO ID: [id number] Author: Adriana Stanley APRN.CRNA Service: Anesthesiology Author Type: Nurse Yeast Culture Operator Type: Anesthesia Procedure Notes Filed: 12/24/2021 8:44 [...] Imaging Guidance Used: No SIGNATURE: Adriana Stanley APRN.YOKE SETTER PATIENT NAME: Mary Leal DATE: December 24, 2021 TIME: 8:44 AM CSN: [id number] NoteHNO ID: [id number] Author: Adriana Stanley APRN.CRNA Service: Anesthesiology Author Type: Nurse Yeast Culture Operator Type: Anesthesia Procedure Notes Filed: 12/24/2021 8:44 AM Note Text: ANESTHESIOLOGY PROCEDURE NOTE Airway General Information Procedure Start Time/Medication Administration: 12/24/2021 8:22 AM Patient location during procedure: OR 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, care steam tender and patient Staffing Anesthesiologist: Chayito Ojeda MD YOKE SETTER: Adriana Stanley APRN.YOKE SETTER Performed by: YOKE SETTER and anesthesiologist Indications and Patient Condition Preoxygenated: [...] December 24, 2021 TIME: 8:43 AM CSN: [id number] Evaluation note* Encounter Date Diagnosis Assessment Notes [...] note writ ten by Lupillo Amezquita MA, Range Manager. Edited and approved by Dr. Beto Snyder MD. [employer] Other 11-01-2021 Evaluation note* Encounter Date Diagnosis [...] note writ ten by Lupillo Amezquita MA, Range Manager. Edited and approved by Dr. Beto Snyder MD. [facility] Other 10-14-2021 Evaluation note* Encounter Date Diagnosis [...] no improvement in 2 to 3 days. [facility] Other 10-08-2021 Evaluation note* Encounter Date Diagnosis [...] Patient care instructions given in writting by [facility] document [employer] Other 10-07-2021 Evaluation note* Encounter Date Diagnosis [...] Aug, Other chronic pain (ICD-10 - G89.29) [facility] Other 09-22-2021 Evaluation note* Encounter Date Diagnosis [...] Jul, Other chronic pain (ICD-10 - G89.29) [facility] Other 03-01-2021 Note [id number]:127[facility] 01-04-2021 NoteCystoscopy with Botox injection ? [...] you have a fever over 100 degrees.[facility] 11-11-2020 NoteChief Complaint Pt is here [...] BENSON, Dawna Feldman [address] [place] [address]- [phone] Additional Instructions: F/u in 1yr. Patient Education Urinary Frequency Christy Gloria , personally scribed for Dr. Marmolejo on 11/11/2020 12:07:15. Electronically signedby alex Gill on 11/11/2020 12:07:15. Documentation recorded by the scribe, Christy, accurately reflects the services(s) I performed and [...] disorder Bipolar disorder (more content not included)...[facility] Comment on above:Result Comment: Electronically Signed By: Francie BENSON, Dawna Feldman\.br\Date and Time Signed: 11/11/2111:16 EST\.br\Electronically Co-Signed By: Christy Gill MA\.br\Date and Time Co-Signed: 11/11/20 12:07 [id number]:127[facility] N[facility]ative - Reported* MARY LEAL is being seen for an initial evaluation of. * 52-year-old female seen in cardiology consultation at the request of her primary care physician forelevated troponin while in [facility] this past spring that was associated [...] was simply at small type II non- [place] troponin elevationrelated to inflammation and gastritis and [...] colectomy. She can follow-up as needed otherwise. -[facility]-Ambrosio Lopez DO Work Phone: Evaluation note* Diagnosis Pelvic floor dysfunction- Primary Pelvic muscle wasting Lack of coordination Follow-up examination after colorectal surgery Follow-up examination, following other surgery [facility]* Diagnosis Gastroesophageal reflux disease, unspecified whether esophagitis present documented in this [facility]* Diagnosis Follow-up examination after colorectal surgery- Primary Follow-up examination, following other surgery documented [facility] this [facility]* Diagnosis Post-operative state- Primary Other postprocedural status Yeast infection of the skin Candidiasis of skin and nails documented in this encounter [facility] note* Diagnosis Pelvic floor dysfunction- Primary Pelvic muscle wasting Lack of coordination Follow-up examination after colorectal surgery Follow-up examination, following other surgery documented in this [facility]* Diagnosis Postoperative state- Primary Other postprocedural status Attention to ileostomy (HCC) Attention to ileostomy documented in this encounter [facility] note* Diagnosis Preop examination- Primary [...] Attention to ileostomy documented in this [facility]* Diagnosis Gastroesophageal reflux disease, unspecified whether esophagitis present Chronic idiopathic constipation Unspecified constipation Attention to ileostomy (HCC) Attention to ileostomy documented in this encounter [facility] note* Diagnosis Follow-up examination after colorectal surgery- Primary Follow-up examination, following other surgery Pelvic floor dysfunction Pelvic muscle wasting documented in this encounter [facility] noteNo InformationNortBiOM Other Evaluation noteNoADVANCE DISPLAY [employer] Other Evaluation note* Diagnosis Follow-up examination after colorectal surgery- Primary Follow-up examination, following other surgery Periumbilical abdominal pain Abdominal pain, periumbilic Outlet dysfunction constipation Colonic inertia Other functional disorders of intestine documented in this encounter [facility] noteNo assessment information availableMedina [facility] Work Phone: Evaluation note* Diagnosis Gas bloat syndrome- Primary Chronic idiopathic constipation Unspecified constipation Gastroparesis documented in this encounter [facility] note* Diagnosis Gastroesophageal reflux disease, unspecified whether esophagitis present documented in this [facility]* Diagnosis Gastroparesis- Primary documented in this encounter [facility] note* Diagnosis CHUCKIE (obstructive sleep apnea)- Primary Obstructive sleep apnea (adult) (pediatric) documented in this encounter [facility] note* Diagnosis Pre-op exam- Primary Preoperative examination, unspecified Primary hypertension Unspecified essential hypertension Mild persistent asthma without complication Unspecified asthma Gastroparesis CHUCKIE (obstructive sleep apnea) Obstructive sleep apnea (adult) (pediatric) documented in this encounter [facility] note* Diagnosis CHUCKIE (obstructive sleep apnea)- Primary Obstructive sleep apnea (adult) (pediatric) documented in this [facility]* Diagnosis Chronic idiopathic constipation- Primary Unspecified constipation Nausea Nausea alone documented in this [facility]* Diagnosis Gastroesophageal reflux disease with esophagitis without hemorrhage- Primary documented in this [facility]* Diagnosis Colonic inertia- Primary Other functional disorders of intestine Pelvic floor dysfunction Pelvic muscle wasting Nausea Nausea alone Gastroparesis documented in this encounter [facility] note* Diagnosis Pylorospasm- Primary Functional dyspepsia Dyspepsia and other specified disorders of function of stomach Gastroesophageal reflux disease with esophagitis without hemorrhage documented in this encounter [facility] note* Diagnosis Gastroesophageal reflux disease, unspecified whether esophagitis present documented in this encounter [facility] note* Diagnosis CHUCKIE (obstructive sleep apnea)- Primary Obstructive sleep apnea (adult) (pediatric) documented in this [facility]* Diagnosis Pylorospasm- Primary Functional dyspepsia Dyspepsia and other specified disorders of function of stomach Gastroesophageal reflux disease with esophagitis without hemorrhage documented in this encounter [facility] note* Diagnosis Gastroparesis- Primary documented in this encounter [facility] note* Diagnosis Preop examination- Primary Preoperative examination, unspecified Nausea Nausea alone CHUCKIE (obstructive sleep apnea) Obstructive sleep apnea (adult) (pediatric) Mild persistent asthma without complication Unspecified asthma Gastroesophageal reflux disease, unspecified whether esophagitis present Gastroparesis documented in this encounter [facility] note* Diagnosis 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 Personal history of other diseases of digestive system documented in this encounter [facility] note* Diagnosis Gastroesophageal reflux disease, unspecified whether esophagitis present documented in this encounter [facility] note* Diagnosis Incomplete bladder emptying- Primary Constipation, unspecified constipation type Urinary urgency Urgency of urination Urinary frequency Nocturia documented in this encounter [facility] note* Diagnosis Upper abdominal pain- Primary Abdominal pain, other specified site documented in this encounter [facility] note* Diagnosis Burning with urination- Primary Dysuria documented in this encounter [facility] note* Diagnosis Bety vaginitis Candidiasis of vulva and vagina documented in this encounter [facility] note* Diagnosis CHUCKIE (obstructive sleep apnea)- Primary Obstructive sleep apnea (adult) (pediatric) Pre-op testing- Primary Unspecified pre-operative examination CHUCKIE (obstructive sleep apnea) Obstructive sleep apnea (adult) (pediatric) documented in this encounter [facility] note* Diagnosis CHUCKIE (obstructive sleep apnea)- Primary Obstructive sleep apnea (adult) (pediatric) documented in this encounter [facility] note* Diagnosis Pre-op examination- Primary Preoperative examination, [...] urge Urge incontinence documented in this encounter [facility] note* Diagnosis Educational circumstances- Primary Educational circumstance Urinary urgency Urgency of urination Urinary frequency OAB (overactive bladder) Hypertonicity of bladder Urinary incontinence, urge Urge incontinence documented in this encounter [facility] note* Diagnosis Post-operative state- Primary Other postprocedural status documented in this encounter [facility] note* Diagnosis Procedure and treatment not carried out for other reasons- Primary documented in this encounter [facility]* Diagnosis Post-operative state- Primary Other postprocedural status Vaginal burning Other specified symptom associated with female genital organs documented in this encounter [facility] note* Diagnosis Vaginal burning- Primary Other specified symptom associated with female genital organs documented in this encounter [facility] note* Diagnosis [place] grade D esophagitis Early satiety Unintentional weight loss Loss of weight Gastroparesis [facility] - Reported* Type Description Date [...] see above list Hospitalization History respiratory 02/2020 [facility] Other [employer] general Narrative - ReportedNoADVANCE DISPLAY [employer] Other [employer] general Narrative - Reported* Type Description Date [...] see above list Hospitalization History respiratory 02/2020 [facility] Other InstructionsNot on filedocumented in this encounter [facility] SystemInstructionsNot on filedocumented in this encounter [facility] SystemReason for referral (narrative)* Outpatient Procedure (Routine) - Pending Review Specialty Diagnoses / Procedures Referred By Contac t Referred To Contact [facility] Diagnoses Gastroparesis Procedures CAPSULE ENDOSCOPY SMART Isra Masters, DO [facility] [address] [place] [address] [place] [phone] Referral ID Status Reason Start Date Expiration Date Visits Requested Visits Authorized [id number] Pending Review Auto-Generat ed Referral 10/11/2022 10/11/2023 1 1 [facility] for referral (narrative)* Outpatient Procedure (Routine) - Pending Review Specialty Diagnoses / Procedures Referred By Contac t Referred To Contact [facility] Diagnoses Chronic idiopathic constipation Procedures SIGMOIDOSCOPY SIGMOIDOSCOPY FLX DX W/COLLJ SPEC BR/WA IF PFRMD Isra Masters DO [facility] [address] [place] [id number] [place] [phone] Referral ID Status Reason Start Date Expiration Date Visits Requested Visits Authorized [id number] Pending Review Auto-Generat ed Referral 11/30/2022 11/30/2023 1 1 [facility] for referral (narrative)* Outpatient Procedure (Routine) - Pending Review Specialty Diagnoses / Procedures Referred By Contac t Referred To Contact [facility] Diagnoses Gastroparesis Procedures EGD - THERAPEUTIC, EUS, OR TUBE INTERVENTIONS ESOPHAGOGASTRODUODENOSC OPY TRANSORAL DIAGNOSTIC STOMACH SURGERY PROCEDURE [place] [address] [place] [phone] Referral ID Status Reason Start Date Expiration Date Visits Requested Visits Authorized [id number] Pending Review Auto-Generat ed Referral 01/11/2023 01/12/2024 1 1 [facility] for referral (narrative)* Outpatient Procedure (Routine) - Pending Review Specialty Diagnoses / Procedures Referred By Gustavo salazar Referred To Contact [facility] Diagnoses Incomplete bladder emptying Urinary urgency Urinary frequency Nocturia Procedures URODYNAMICS WHI COMPLX CYSTOMETRO W/VOID PRESS&URETHRAL PROFILE Nelsy Chávez APRN.HOUSE BUILDER [address] [place] [address] [facility] [address] [place] [phone] Referral ID Status Reason Start Date Expiration Date Visits Requested Visits Authorized [id number] Pending Review Auto-Generat ed Referral 07/31/2023 07/30/2024 1 1 [facility] for referral (narrative)* Consultation (Routine) - Open Specialty Diagnoses / Procedures Referred By Gustavo salazar Referred To Contact [facility] Diagnoses Upper abdominal pain Lev Ritter APRN HOUSE BUILDER [address] [place] [address] [facility] [address] [place] [address] Referral ID Status Reason Start Date Expiration Date Visits Re quested Visits Authorized [id number] Open 08/12/2023 09/12/2024 1 1 [facility] NarrativeDISCUSS OTHER OPTIONS PRIOR TO [facility] [employer] Other Reason for visit NarrativeRECHECK CERVICAL PAIN DISCUSS PROCEDURENort [employer] Other [employer] for visit Narrative* Outpatient Procedure (Routine) - Closed Specialty Diagnoses / Procedures Referred By Gustavo salazar Referred To Contact [facility] Diagnoses Gastroparesis Procedures GI TRANSIT & PRES RAVINDER WIRELESS CAPSULE W/INTERP Isra Masters DO [facility] [address] [place] [address] [facility] [address] [place] [address] Referral ID Status Reason Start Date Expiration Date Visits Re quested Visits Authorized [id number] Closed 11/08/2022 11/05/2023 1 1 [facility] Summary Purpose Family History No Family [...] of cardiac pa cemaker: Father(V17.49, Z82.49) Status:Active Relationship Condition Age at Onset Recorded Date/T faina father Hypertension Unknown mother Hypertension Unknown son Family history of mental disorder Unknown Advance Directives No Advanced Directives Records FoundDocuments on File Type Date Recorded Patient Compliance Nurse Expl anation Advance Directive(s) 10/13/2021 4:09 PM Advance Directive(s) 10/14/2020 8:14 AM Documents on File Type Date Recorded Patient Compliance Nurse Expl anation Advance Directive(s) 10/13/2021 4:09 PM Advance Directive(s) 10/14/2020 8:14 AM Documents on File Type Date Recorded Patient Compliance Nurse Expl anation Advance Directive(s) 03/21/2022 1:42 PM [...] unspecified whether esophagitis present Isra Masters DO [facility] [address] [place] [address] Referral ID Status Reason Start Date Expiration Date Visits Re quested Visits Authorized [id number] Closed 1 1 Referral ID Status Reason Start Date Expiration Date V isits Requested Visits Authorized [id number] Pending Review 1 1 Specialty Diagnoses / Procedures Referred By Contac t Referred To Contact CT IMAGING Diagnoses Periumbilical abdominal pain Procedures CT ABD/PEL W IVCON CT ABD & [place]EL[place] [address] [place] [address] Ct Imaging Referral ID Status Reason Start Date Expiration Date Visits Requested Visits Authorized [id number] Pending Review Auto-Generat ed Referral 08/02/2022 08/25/2023 1 1 Reason BILATERAL SHOULDER P AIN Diagnosis 1 Shoulder pain (M25.5 19) Referral Organization [facility] Referring Provider First Name Beto Referring Provider Last Name Steven Referring Provider Specialty Pain Medici ne Referred Organization [facility] Referred Provider Beto Cartagena Referred Address [address] [place], [place],[address] Referred Provider Specialty Orthopedic S urgery Referral Priority Routine Referral Appointment Date 2022-10-10 General Notes Kim Manley 10:01:46 AM >patient already scheduled with [facility] 10/10/22 at 1:30pm. Sending p2p at this time Referral ID Status Reason Start Date Expiration Date Visits Re quested Visits Authorized [id number] Closed 1 1 Specialty Diagnoses / Procedures Referred By Laurentac t Referred To Contact Diagnoses [place] grade D esophagitis Early satiety Unintentional weight loss Gastroparesis Procedures DIAGNOSTIC UPPER ENDOSCOPY [place] ESOPHAGOGASTRODUODENOSCOPY TRANSORAL DIAGNOSTIC Padmaja Ledezma MD, PhD [address] [place] [address] [address] [place] [address] Referral ID Status Reason Start Date Expiration Date V isits Requested Visits Authorized [id number] New Request 03/06/2024 03/31/2025 1 1 Chief Complaint and Reason for Visit Chief Complaint M25.519 M25.569 R52 Chief Complaint M25.519 M25.569 R52 bilateral shoulder pain Chief Complaint M76.821/right foor p ain Chief Complaint M76.821/right foor p ain chest tightness dizzy sob Chief Complaint r11.0 r10.11 Chief Complaint M76.71 Chief Complaint * Patient is a 53-year-old female who returns at the request of her primary care physician with episodic chest discomfort associated weakness, dizziness, diaphoresis with recent work-up that [facility] emergency room. Reportedly her troponins [...] of which are currently being investigated at [facility] (now her fourth GI specialist). * Last year while in [place] she had similar issues with elevated troponins in the ED and underwent heart catheterization that did not reveal any specific significant disease, details of the discharge summary are reviewed * She underwent recent stress perfusion imaging at [facility], the report is reviewed, she hasno [...] disease, will investigate the troponin rise at [facility] however I believe this is likely a non- [place] troponin elevation, likely associated withunderlying inflammatory bowel disease. We will follow-up on a as needed basis unless further objective data come to light * Patient is a 53-year-old female who returns at the request of her primary care physician with episodic chest discomfort associated weakness, dizziness, diaphoresis with recent work-up that [facility] emergency room. Reportedly her troponins [...] of which are currently being investigated at [facility] (now her fourth GI specialist). * Last year while in [place] she had similar issues with elevated troponins in the ED and underwent heart catheterization that did not reveal any specific significant disease, details of the discharge summary are reviewed * She underwent recent stress perfusion imaging at [facility], the report is reviewed, she hasno [...] disease, will investigate the troponin rise at [facility] however I believe this is likely a non- [place] troponin elevation, likely associated withunderlying inflammatory bowel disease. We will follow-up on a as needed basis unless further objective data come to light Additional Source Comments INFORMATION SOURCE (unrecogn ized section and content) DATE CREATED AUTHOR 07/08/2021 [facility] DATE CREATED AUTHOR AUTHOR'S ORGANIZ ATION 11/18/2021 [facility] DATE CREATED AUTHOR AUTHOR'S ORGANIZ ATION 02/01/2022 [facility] DATE CREATED AUTHOR AUTHOR'S ORGANIZ ATION 04/05/2022 [facility] DATE CREATED AUTHOR AUTHOR'S ORGANIZ ATION 09/29/2022 [facility] dical Specialist DATE CREATED AUTHOR AUTHOR'S ORGANIZ ATION 12/09/2022 [facility] DATE CREATED AUTHOR AUTHOR'S ORGANIZ ATION 04/16/2023 [facility] DATE CREATED AUTHOR AUTHOR'S ORGANIZ ATION 06/14/2023 [facility] DATE CREATED AUTHOR AUTHOR'S ORGANIZ ATION 08/14/2023 [facility] DATE CREATED AUTHOR AUTHOR'S ORGANIZ ATION 09/02/[address] [facility] ical Center DATE CREATED AUTHOR AUTHOR'S ORGANIZ ATION 10/27/2023 [facility] DATE CREATED AUTHOR AUTHOR'S ORGANIZ ATION 01/11/2024 [facility] DATE CREATED AUTHOR AUTHOR'S ORGANIZ ATION 01/26/2024 [facility] DATE CREATED AUTHOR AUTHOR'S ORGANIZ ATION 03/16/2024 [facility] DATE CREATED AUTHOR AUTHOR'S ORGANIZ ATION 04/21/2024 [facility] DATE CREATED AUTHOR AUTHOR'S ORGANIZ ATION 05/01/2024 [facility] DATE CREATED AUTHOR AUTHOR'S ORGANIZ ATION 05/07/2024 [facility] d[facility] Specialists [facility] DATE CREATED AUTHOR AUTHOR'S ORGANIZ ATION 05/09/2024 [facility] DATE CREATED AUTHOR AUTHOR'S ORGANIZ ATION 05/13/2024 [facility] Source Comments (unrecognize d section and content) In the event this informatio n is protected by the Federal Confidentiality of Alcohol and Drug Abuse Patient Records regulations: The Federal rules restrict any use of the information to criminally investigate or prosecute any alcohol or drug abuse patient.[facility] the event this information is protected by the Federal Confidentiality of Alcohol and Drug Abuse Patient Records regulations: The Federal rules restrict any use of the information to criminally investigate or prosecute any alcohol or drug abuse patient.[facility] HospitalIn the event this information is protected by the Federal Confidentiality of Alcohol and Drug Abuse Patient Records regulations: The Federal rules restrict any use of the information to criminally investigate or prosecute any alcohol or drug abuse patient.[facility] HospitalIn the event this information is protected by the Federal Confidentiality of Alcohol and Drug Abuse Patient Records regulations: The Federal rules restrict any use of the information to criminally investigate or prosecute any alcohol or drug abuse patient.[facility] HospitalIn the event this information is protected by the Federal Confidentiality of Alcohol and Drug Abuse Patient Records regulations: The Federal rules restrict any use of the information to criminally investigate or prosecute any alcohol or drug abuse patient.[facility] HospitalIn the event this information is protected by the Federal Confidentiality of Alcohol and Drug Abuse Patient Records regulations: The Federal rules restrict any use of the information to criminally investigate or prosecute any alcohol or drug abuse patient.[facility] HospitalIn the event this information is protected by the Federal Confidentiality of Alcohol and Drug Abuse Patient Records regulations: The Federal rules restrict any use of the information to criminally investigate or prosecute any alcohol or drug abuse patient.[facility] HospitalIn the event this information is protected by the Federal Confidentiality of Alcohol and Drug Abuse Patient Records regulations: The Federal rules restrict any use of the information to criminally investigate or prosecute any alcohol or drug abuse patient.[facility] HospitalIn the event this information is protected by the Federal Confidentiality of Alcohol and Drug Abuse Patient Records regulations: The Federal rules restrict any use of the information to criminally investigate or prosecute any alcohol or drug abuse patient.[facility] HospitalIn the event this information is protected by the Federal Confidentiality of Alcohol and Drug Abuse Patient Records regulations: The Federal rules restrict any use of the information to criminally investigate or prosecute any alcohol or drug abuse patient.[facility] HospitalIn the event this information is protected by the Federal Confidentiality of Alcohol and Drug Abuse Patient Records regulations: The Federal rules restrict any use of the information to criminally investigate or prosecute any alcohol or drug abuse patient.[facility] HospitalIn the event this information is protected by the Federal Confidentiality of Alcohol and Drug Abuse Patient Records regulations: The Federal rules restrict any use of the information to criminally investigate or prosecute any alcohol or drug abuse patient.[facility] HospitalIn the event this information is protected by the Federal Confidentiality of Alcohol and Drug Abuse Patient Records regulations: The Federal rules restrict any use of the information to criminally investigate or prosecute any alcohol or drug abuse patient.[facility] HospitalIn the event this information is protected by the Federal Confidentiality of Alcohol and Drug Abuse Patient Records regulations: The Federal rules restrict any use of the information to criminally investigate or prosecute any alcohol or drug abuse patient.[facility] HospitalIn the event this information is protected by the Federal Confidentiality of Alcohol and Drug Abuse Patient Records regulations: The Federal rules restrict any use of the information to criminally investigate or prosecute any alcohol or drug abuse patient.[facility] HospitalIn the event this information is protected by the Federal Confidentiality of Alcohol and Drug Abuse Patient Records regulations: The Federal rules restrict any use of the information to criminally investigate or prosecute any alcohol or drug abuse patient.[facility] HospitalIn the event this information is protected by the Federal Confidentiality of Alcohol and Drug Abuse Patient Records regulations: The Federal rules restrict any use of the information to criminally investigate or prosecute any alcohol or drug abuse patient.[facility] HospitalIn the event this information is protected by the Federal Confidentiality of Alcohol and Drug Abuse Patient Records regulations: The Federal rules restrict any use of the information to criminally investigate or prosecute any alcohol or drug abuse patient.[facility] HospitalIn the event this information is protected by the Federal Confidentiality of Alcohol and Drug Abuse Patient Records regulations: The Federal rules restrict any use of the information to criminally investigate or prosecute any alcohol or drug abuse patient.[facility] HospitalIn the event this information is protected by the Federal Confidentiality of Alcohol and Drug Abuse Patient Records regulations: The Federal rules restrict any use of the information to criminally investigate or prosecute any alcohol or drug abuse patient.[facility] HospitalIn the event this information is protected by the Federal Confidentiality of Alcohol and Drug Abuse Patient Records regulations: The Federal rules restrict any use of the information to criminally investigate or prosecute any alcohol or drug abuse patient.[facility] HospitalIn the event this information is protected by the Federal Confidentiality of Alcohol and Drug Abuse Patient Records regulations: The Federal rules restrict any use of the information to criminally investigate or prosecute any alcohol or drug abuse patient.[facility] HospitalIn the event this information is protected by the Federal Confidentiality of Alcohol and Drug Abuse Patient Records regulations: The Federal rules restrict any use of the information to criminally investigate or prosecute any alcohol or drug abuse patient.[facility] HospitalIn the event this information is protected by the Federal Confidentiality of Alcohol and Drug Abuse Patient Records regulations: The Federal rules restrict any use of the information to criminally investigate or prosecute any alcohol or drug abuse patient.[facility] HospitalIn the event this information is protected by the Federal Confidentiality of Alcohol and Drug Abuse Patient Records regulations: The Federal rules restrict any use of the information to criminally investigate or prosecute any alcohol or drug abuse patient.[facility] HospitalIn the event this information is protected by the Federal Confidentiality of Alcohol and Drug Abuse Patient Records regulations: The Federal rules restrict any use of the information to criminally investigate or prosecute any alcohol or drug abuse patient.[facility] HospitalIn the event this information is protected by the Federal Confidentiality of Alcohol and Drug Abuse Patient Records regulations: The Federal rules restrict any use of the information to criminally investigate or prosecute any alcohol or drug abuse patient.[facility] HospitalIn the event this information is protected by the Federal Confidentiality of Alcohol and Drug Abuse Patient Records regulations: The Federal rules restrict any use of the information to criminally investigate or prosecute any alcohol or drug abuse patient.[facility] HospitalIn the event this information is protected by the Federal Confidentiality of Alcohol and Drug Abuse Patient Records regulations: The Federal rules restrict any use of the information to criminally investigate or prosecute any alcohol or drug abuse patient.[facility] HospitalIn the event this information is protected by the Federal Confidentiality of Alcohol and Drug Abuse Patient Records regulations: The Federal rules restrict any use of the information to criminally investigate or prosecute any alcohol or drug abuse patient.[facility] HospitalIn the event this information is protected by the Federal Confidentiality of Alcohol and Drug Abuse Patient Records regulations: The Federal rules restrict any use of the information to criminally investigate or prosecute any alcohol or drug abuse patient.[facility] HospitalIn the event this information is protected by the Federal Confidentiality of Alcohol and Drug Abuse Patient Records regulations: The Federal rules restrict any use of the information to criminally investigate or prosecute any alcohol or drug abuse patient.[facility] HospitalIn the event this information is protected by the Federal Confidentiality of Alcohol and Drug Abuse Patient Records regulations: The Federal rules restrict any use of the information to criminally investigate or prosecute any alcohol or drug abuse patient.[facility] HospitalIn the event this information is protected by the Federal Confidentiality of Alcohol and Drug Abuse Patient Records regulations: The Federal rules restrict any use of the information to criminally investigate or prosecute any alcohol or drug abuse patient.[facility] HospitalIn the event this information is protected by the Federal Confidentiality of Alcohol and Drug Abuse Patient Records regulations: The Federal rules restrict any use of the information to criminally investigate or prosecute any alcohol or drug abuse patient.[facility] HospitalIn the event this information is protected by the Federal Confidentiality of Alcohol and Drug Abuse Patient Records regulations: The Federal rules restrict any use of the information to criminally investigate or prosecute any alcohol or drug abuse patient.[facility] HospitalIn the event this information is protected by the Federal Confidentiality of Alcohol and Drug Abuse Patient Records regulations: The Federal rules restrict any use of the information to criminally investigate or prosecute any alcohol or drug abuse patient.[facility] HospitalIn the event this information is protected by the Federal Confidentiality of Alcohol and Drug Abuse Patient Records regulations: The Federal rules restrict any use of the information to criminally investigate or prosecute any alcohol or drug abuse patient.[facility] HospitalIn the event this information is protected by the Federal Confidentiality of Alcohol and Drug Abuse Patient Records regulations: The Federal rules restrict any use of the information to criminally investigate or prosecute any alcohol or drug abuse patient.[facility] HospitalIn the event this information is protected by the Federal Confidentiality of Alcohol and Drug Abuse Patient Records regulations: The Federal rules restrict any use of the information to criminally investigate or prosecute any alcohol or drug abuse patient.[facility] HospitalIn the event this information is protected by the Federal Confidentiality of Alcohol and Drug Abuse Patient Records regulations: The Federal rules restrict any use of the information to criminally investigate or prosecute any alcohol or drug abuse patient.[facility] HospitalIn the event this information is protected by the Federal Confidentiality of Alcohol and Drug Abuse Patient Records regulations: The Federal rules restrict any use of the information to criminally investigate or prosecute any alcohol or drug abuse patient.[facility] HospitalIn the event this information is protected by the Federal Confidentiality of Alcohol and Drug Abuse Patient Records regulations: The Federal rules restrict any use of the information to criminally investigate or prosecute any alcohol or drug abuse patient.[facility] HospitalIn the event this information is protected by the Federal Confidentiality of Alcohol and Drug Abuse Patient Records regulations: The Federal rules restrict any use of the information to criminally investigate or prosecute any alcohol or drug abuse patient.[facility] HospitalIn the event this information is protected by the Federal Confidentiality of Alcohol and Drug Abuse Patient Records regulations: The Federal rules restrict any use of the information to criminally investigate or prosecute any alcohol or drug abuse patient.[facility] HospitalIn the event this information is protected by the Federal Confidentiality of Alcohol and Drug Abuse Patient Records regulations: The Federal rules restrict any use of the information to criminally investigate or prosecute any alcohol or drug abuse patient.[facility] HospitalIn the event this information is protected by the Federal Confidentiality of Alcohol and Drug Abuse Patient Records regulations: The Federal rules restrict any use of the information to criminally investigate or prosecute any alcohol or drug abuse patient.[facility] HospitalIn the event this information is protected by the Federal Confidentiality of Alcohol and Drug Abuse Patient Records regulations: The Federal rules restrict any use of the information to criminally investigate or prosecute any alcohol or drug abuse patient.[facility] HospitalIn the event this information is protected by the Federal Confidentiality of Alcohol and Drug Abuse Patient Records regulations: The Federal rules restrict any use of the information to criminally investigate or prosecute any alcohol or drug abuse patient.[facility] HospitalIn the event this information is protected by the Federal Confidentiality of Alcohol and Drug Abuse Patient Records regulations: The Federal rules restrict any use of the information to criminally investigate or prosecute any alcohol or drug abuse patient.[facility] HospitalIn the event this information is protected by the Federal Confidentiality of Alcohol and Drug Abuse Patient Records regulations: The Federal rules restrict any use of the information to criminally investigate or prosecute any alcohol or drug abuse patient.[facility] HospitalIn the event this information is protected by the Federal Confidentiality of Alcohol and Drug Abuse Patient Records regulations: The Federal rules restrict any use of the information to criminally investigate or prosecute any alcohol or drug abuse patient.[facility] HospitalIn the event this information is protected by the Federal Confidentiality of Alcohol and Drug Abuse Patient Records regulations: The Federal rules restrict any use of the information to criminally investigate or prosecute any alcohol or drug abuse patient.[facility] HospitalIn the event this information is protected by the Federal Confidentiality of Alcohol and Drug Abuse Patient Records regulations: The Federal rules restrict any use of the information to criminally investigate or prosecute any alcohol or drug abuse patient.[facility] HospitalIn the event this information is protected by the Federal Confidentiality of Alcohol and Drug Abuse Patient Records regulations: The Federal rules restrict any use of the information to criminally investigate or prosecute any alcohol or drug abuse patient.[facility] HospitalIn the event this information is protected by the Federal Confidentiality of Alcohol and Drug Abuse Patient Records regulations: The Federal rules restrict any use of the information to criminally investigate or prosecute any alcohol or drug abuse patient.[facility] HospitalIn the event this information is protected by the Federal Confidentiality of Alcohol and Drug Abuse Patient Records regulations: The Federal rules restrict any use of the information to criminally investigate or prosecute any alcohol or drug abuse patient.[facility] HospitalIn the event this information is protected by the Federal Confidentiality of Alcohol and Drug Abuse Patient Records regulations: The Federal rules restrict any use of the information to criminally investigate or prosecute any alcohol or drug abuse patient.[facility] HospitalIn the event this information is protected by the Federal Confidentiality of Alcohol and Drug Abuse Patient Records regulations: The Federal rules restrict any use of the information to criminally investigate or prosecute any alcohol or drug abuse patient.[facility] HospitalIn the event this information is protected by the Federal Confidentiality of Alcohol and Drug Abuse Patient Records regulations: The Federal rules restrict any use of the information to criminally investigate or prosecute any alcohol or drug abuse patient.[facility] HospitalIn the event this information is protected by the Federal Confidentiality of Alcohol and Drug Abuse Patient Records regulations: The Federal rules restrict any use of the information to criminally investigate or prosecute any alcohol or drug abuse patient.[facility] HospitalIn the event this information is protected by the Federal Confidentiality of Alcohol and Drug Abuse Patient Records regulations: The Federal rules restrict any use of the information to criminally investigate or prosecute any alcohol or drug abuse patient.[facility] HospitalIn the event this information is protected by the Federal Confidentiality of Alcohol and Drug Abuse Patient Records regulations: The Federal rules restrict any use of the information to criminally investigate or prosecute any alcohol or drug abuse patient.[facility] HospitalIn the event this information is protected by the Federal Confidentiality of Alcohol and Drug Abuse Patient Records regulations: The Federal rules restrict any use of the information to criminally investigate or prosecute any alcohol or drug abuse patient.[facility] HospitalIn the event this information is protected by the Federal Confidentiality of Alcohol and Drug Abuse Patient Records regulations: The Federal rules restrict any use of the information to criminally investigate or prosecute any alcohol or drug abuse patient.[facility] HospitalIn the event this information is protected by the Federal Confidentiality of Alcohol and Drug Abuse Patient Records regulations: The Federal rules restrict any use of the information to criminally investigate or prosecute any alcohol or drug abuse patient.[facility] HospitalIn the event this information is protected by the Federal Confidentiality of Alcohol and Drug Abuse Patient Records regulations: The Federal rules restrict any use of the information to criminally investigate or prosecute any alcohol or drug abuse patient.[facility] HospitalIn the event this information is protected by the Federal Confidentiality of Alcohol and Drug Abuse Patient Records regulations: The Federal rules restrict any use of the information to criminally investigate or prosecute any alcohol or drug abuse patient.[facility] HospitalIn the event this information is protected by the Federal Confidentiality of Alcohol and Drug Abuse Patient Records regulations: The Federal rules restrict any use of the information to criminally investigate or prosecute any alcohol or drug abuse patient.[facility] HospitalIn the event this information is protected by the Federal Confidentiality of Alcohol and Drug Abuse Patient Records regulations: The Federal rules restrict any use of the information to criminally investigate or prosecute any alcohol or drug abuse patient.[facility] HospitalIn the event this information is protected by the Federal Confidentiality of Alcohol and Drug Abuse Patient Records regulations: The Federal rules restrict any use of the information to criminally investigate or prosecute any alcohol or drug abuse patient.[facility] HospitalIn the event this information is protected by the Federal Confidentiality of Alcohol and Drug Abuse Patient Records regulations: The Federal rules restrict any use of the information to criminally investigate or prosecute any alcohol or drug abuse patient.[facility] HospitalIn the event this information is protected by the Federal Confidentiality of Alcohol and Drug Abuse Patient Records regulations: The Federal rules restrict any use of the information to criminally investigate or prosecute any alcohol or drug abuse patient.[facility] HospitalIn the event this information is protected by the Federal Confidentiality of Alcohol and Drug Abuse Patient Records regulations: The Federal rules restrict any use of the information to criminally investigate or prosecute any alcohol or drug abuse patient.[facility] HospitalIn the event this information is protected by the Federal Confidentiality of Alcohol and Drug Abuse Patient Records regulations: The Federal rules restrict any use of the information to criminally investigate or prosecute any alcohol or drug abuse patient.[facility] HospitalIn the event this information is protected by the Federal Confidentiality of Alcohol and Drug Abuse Patient Records regulations: The Federal rules restrict any use of the information to criminally investigate or prosecute any alcohol or drug abuse patient.[facility] HospitalIn the event this information is protected by the Federal Confidentiality of Alcohol and Drug Abuse Patient Records regulations: The Federal rules restrict any use of the information to criminally investigate or prosecute any alcohol or drug abuse patient.[facility] HospitalIn the event this information is protected by the Federal Confidentiality of Alcohol and Drug Abuse Patient Records regulations: The Federal rules restrict any use of the information to criminally investigate or prosecute any alcohol or drug abuse patient.[facility] HospitalIn the event this information is protected by the Federal Confidentiality of Alcohol and Drug Abuse Patient Records regulations: The Federal rules restrict any use of the information to criminally investigate or prosecute any alcohol or drug abuse patient.[facility] HospitalIn the event this information is protected by the Federal Confidentiality of Alcohol and Drug Abuse Patient Records regulations: The Federal rules restrict any use of the information to criminally investigate or prosecute any alcohol or drug abuse patient.[facility] HospitalIn the event this information is protected by the Federal Confidentiality of Alcohol and Drug Abuse Patient Records regulations: The Federal rules restrict any use of the information to criminally investigate or prosecute any alcohol or drug abuse patient.[facility] the event this information is protected by the Federal Confidentiality of Alcohol and Drug Abuse Patient Records regulations: The Federal rules restrict any use of the information to criminally investigate or prosecute any alcohol or drug abuse patient.[facility] the event this information is protected by the Federal Confidentiality of Alcohol and Drug Abuse Patient Records regulations: The Federal rules restrict any use of the information to criminally investigate or prosecute any alcohol or drug abuse patient.[facility] the event this information is protected by the Federal Confidentiality of Alcohol and Drug Abuse Patient Records regulations: The Federal rules restrict any use of the information to criminally investigate or prosecute any alcohol or drug abuse patient.[facility] Hospital[facility] the event this information is protected by the Federal Confidentiality of Alcohol and Drug Abuse Patient Records regulations: The Federal rules restrict any use of the information to criminally investigate or prosecute any alcohol or drug abuse patient.[facility] Reason for Visit (unrecogniz ed section and content) Reason Comments Physical Therapy Specialty Diagnoses / Procedures Referred By Gustavo salazar Referred To Contact [facility] Diagnoses Follow-up examination after colorectal surgery Procedures CONSULT TO PHYSICAL THERAPY PHYSICAL THERAPY EVALUATION HIGH COMPLEX [place] [address] [place] [address] [facility] [place] [address] [place] [address] Referral ID Status Reason Start Date Expiration Date Visits Requested Visits Authorized [id number] Authorized Auto-Generat ed Referral 01/04/2022 11/05/2022 30 30 Reason Comments Refill Request dexlansoprazole Reason Comments Established Patient Follow-Up Reason Comments Post Op Reason Comments Established Patient Reason Comments Appointment for script refill Reason Comments Gastroparesis Reason Comments Hand Bender - Other Reason Comments Medication 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 PA [...] ESOPHAGUS DOUBLE CONTRAST [place] [address] Xr Imaging Referral ID Status Reason Start Date Expiration Date V isits Requested Visits Authorized [id number] Closed Auto-Generate d Referral 11/17/2022 12/17/2023 1 [...] ABD & [place] [address] [place] [address] [address] Imaging Referral ID Status Reason Start Date Expiration Date V isits Requested Visits Authorized [id number] Closed Auto-Generate d Referral 07/28/2022 11/05/2022 2 [...] Visit Specialty Diagnoses / Procedures Referred By Contac t Referred To Contact Diagnoses [place] grade D esophagitis Early satiety Unintentional weight loss Gastroparesis Procedures DIAGNOSTIC UPPER ENDOSCOPY [place] ESOPHAGOGASTRODUODENOSCOPY TRANSORAL DIAGNOSTIC Padmaja Ledezma MD, PhD [address] [place] [address] Referral ID Status Reason Start Date Expiration Date V isits Requested Visits Authorized [id number] New Request 03/06/2024 03/31/2025 1 1 Care Teams (unrecognized sec tion and content) Team Status: Active Member Role Status Dates Shannon Gómez DO Primary Care Provider Active Team Status: Inactive Member Role Status Dates Shannon Gómez , Primary Care Provider Active Niecy Duron PA-C Attending Provider Active Short Haul Driver Relationship Specialty Start Date End Date Eliceo Gómez Jr. [address] [place] [address] PCP - General Family Practice 10/14/20 Short Haul Driver Relationship Specialty Start Date End Date Eliceo Gómez Jr. [address] [place] [address] PCP - General Family Practice 10/14/20 Short Haul Driver Relationship Specialty Start Date End Date Eliceo Gómez Jr. [address] [place] [address] PCP - General Family Practice 10/14/20 Short Haul Driver Relationship Specialty Start Date End Date Eliceo Gómez Jr. [address] [place] [address] PCP - General Family Practice 10/14/20 Short Haul Driver Relationship Specialty Start Date End Date Eliceo Gómez Jr. [address] [place] [address] PCP - General Family Practice 10/14/20 Short Haul Driver Relationship Specialty Start Date End Date Eliceo Gómez Jr. [address] [place] [address] PCP - General Family Practice 10/14/20 Gwendolyn Stroud [facility] [place] [address] Family Practice 03/14/22 Short Haul Driver Relationship Specialty Start Date End Date Eliceo Gómez Jr. [address] [place] [address] PCP - General Family Practice 10/14/20 Gwendolyn Struod [address] [place] [address] Family Practice 03/14/22 Short Haul Driver Relationship Specialty Start Date End Date Eliceo Gómez Jr. [address] [place] [address] PCP - General Family Practice 10/14/20 Gwendolyn Stroud [address] [place] [address] Family Practice 03/14/22 Short Haul Driver Relationship Specialty Start Date End Date Eliceo Gómez Jr. [address] [place] [address] PCP - General Family Practice 10/14/20 Gwendolyn Stroud [address] [place] [address] Family Practice 03/14/22 Short Haul Driver Relationship Specialty Start Date End Date Eliceo Gómez Jr. [address] [place] [address] PCP - General Family Practice 10/14/20 Gwendolyn Stroud [address] [place] [address] Family Practice 03/14/22 Short Haul Driver Relationship Specialty Start Date End Date Eliceo Gómez Jr. [address] [place] [address] PCP - General Family Practice 10/14/20 Gwendolyn Stroud [address] [place] [address] Family Practice 03/14/22 Short Haul Driver Relationship Specialty Start Date End Date Eliceo Gómez Jr. [address] [place] [address] PCP - General Family Practice 10/14/20 Gwendolyn Stroud, HOUSE BUILDER Family Practice 03/14/22 Short Haul Driver Relationship Specialty Start Date End Date Eliceo Gómez Jr. [address] [place] [address] PCP - General Family Practice 10/14/20 Gwendolyn Stroud, HOUSE BUILDER Family Practice 03/14/22 Short Haul Driver Relationship Specialty Start Date End Date Eliceo Gómez JrReno [address] [place] [address] PCP - General Family Practice 10/14/20 Gwendolyn Stroud, HOUSE BUILDER Family Practice 03/14/22 Short Haul Driver Relationship Specialty Start Date End Date Eliceo Gómez JrReno [address] [place] [address] PCP - General Family Practice 10/14/20 Gwendolyn Stroud, HOUSE BUILDER Family Practice 03/14/22 Short Haul Driver Relationship Specialty Start Date End Date Dalia Eliceo Lugo JrReno [address] [place] [address] PCP - General Family Medicine 10/14/20 Gwendolyn Stroud, HOUSE BUILDER Family Medicine 03/14/22 Short Haul Driver Relationship Specialty Start Date End Date HernandezEliceo [facility] [place] JenkinsReno [address] [place] [address] PCP - General Family Medicine 10/14/20 Gwendolyn Stroud CNP Family Medicine 03/14/22 Short Haul Driver Relationship Specialty Start Date End Date Eliceo Gómez Jr. [address] [place] [address] PCP - General Family Medicine 10/14/20 Gwendolyn Stroud CNP Family Medicine 03/14/22 Short Haul Driver Relationship Specialty Start Date End Date Eliceo Gómez Jr. [address] [place] [address] PCP - General Family Medicine 10/14/20 Gwendolyn Stroud CNP Family Medicine 03/14/22 Team Status: Inactive Member Role Status Dates Shannon Gómez , Primary Care Provider Active Beto Snyder MD Attending Provider Active Short Haul Driver Relationship Specialty Start Date End Date Eliceo Gómez Jr. [address] [place] [address] PCP - General Family Medicine 10/14/20 Gwendolyn Stroud, HOUSE BUILDER [address] [place] [address] Family Medicine 03/14/22 Short Haul Driver Relationship Specialty Start Date End Date Eliceo Gómez Jr. [address] [place] [address] PCP - General Family Medicine 10/14/20 Gwendolyn Stroud, HOUSE BUILDER [address] [place] [address] Family Medicine 03/14/22 Short Haul Driver Relationship Specialty Start Date End Date Eliceo Gómez Jr. [address] [place] [address] PCP - General Family Medicine 10/14/20 Gwendolyn Stroud, KWESI [address] [place] [address] Family Medicine 03/14/22 Short Haul Driver Relationship Specialty Start Date End Date Eliceo Gómez Jr. [address] [place] [address] PCP - General Family Medicine 10/14/20 Gwendolyn Stroud, HOUSE BUILDER [address] [place] [address] Family Medicine 03/14/22 Short Haul Driver Relationship Specialty Start Date End Date Eliceo Gómez Jr. [address] [place] [address] PCP - General Family Medicine 10/14/20 Gwendolyn Stroud, HOUSE BUILDER [address] [place] [address] Family Medicine 03/14/22 Short Haul Driver Relationship Specialty Start Date End Date Eliceo Gómez Jr. [address] [place] [address] PCP - General Family Medicine 10/14/20 Gwendolyn Stroud, HOUSE BUILDER [address] [place] [address] Family Medicine 03/14/22 Short Haul Driver Relationship Specialty Start Date End Date Eliceo Gómez Jr. [address] [place] [address] PCP - General Family Medicine 10/14/20 Gwendolyn Stroud CNP [address] [place] [address] Family Medicine 03/14/22 Short Haul Driver Relationship Specialty Start Date End Date Eliceo Gómez Jr. [address] [place] [address] PCP - General Family Medicine 10/14/20 Gwendolyn Stroud CNP [address] [place] [address] Family Medicine 03/14/22 Short Haul Driver Relationship Specialty Start Date End Date Eliceo Gómez Jr. [address] [place] [address] PCP - General Family Medicine 10/14/20 Gwendolyn Stroud CNP [address] [place] [address] Family Medicine 03/14/22 Short Haul Driver Relationship Specialty Start Date End Date Eliceo Gómez Jr. [address] [place] [address] PCP - General Family Medicine 10/14/20 Gwendolyn Stroud CNP [address] [place] [address] Family Medicine 03/14/22 Short Haul Driver Relationship Specialty Start Date End Date Eliceo Gómez Jr. [address] [place] [address] PCP - General Family Medicine 10/14/20 Gwendolyn Stroud CNP [address] [place] [address] Family Medicine 03/14/22 Team Status: Inactive Member Role Status Dates Shannon Gómez DO Primary Care Provider Active Beto Cartagena MD Attending Provider Active Short Haul Driver Relationship Specialty Start Date End Date Eliceo Gómez Jr. [address] [place] [address] PCP - General Family Medicine 10/14/20 Gwendolyn Stroud CNP [address] [place] [address] Family Medicine 03/14/22 Short Haul Driver Relationship Specialty Start Date End Date Eliceo Gómez Jr. [address] [place] [address] PCP - General Family Medicine 10/14/20 Gwendolyn Stroud CNP [address] [place] [address] Family Medicine 03/14/22 Short Haul Driver Relationship Specialty Start Date End Date Eliceo Gómez Jr. [address] [place] [address] PCP - General Family Medicine 10/14/20 Gwendolyn Stroud CNP [address] [place] [address] Family Medicine 03/14/22 Short Haul Driver Relationship Specialty Start Date End Date Eliceo Gómez Jr. [address] [place] [address] PCP - General Family Medicine 10/14/20 Gwendolyn Stroud CNP [address] [place] [address] Family Medicine 03/14/22 Short Haul Driver Relationship Specialty Start Date End Date Eliceo Gómez Jr. [address] [place] [address] PCP - General Family Medicine 10/14/20 Gwendolyn Stroud CNP [address] [place] [address] Family Medicine 03/14/22 Short Haul Driver Relationship Specialty Start Date End Date Eliceo Gómez Jr. [address] [place] [address] PCP - General Family Medicine 10/14/20 Gwendolyn Stroud CNP [address] [place] [address] Family Medicine 03/14/22 Short Haul Driver Relationship Specialty Start Date End Date Eliceo Gómez Jr. [address] [place] [address] PCP - General Family Medicine 10/14/20 Gwendolyn Stroud CNP [address] [place] [address] Family Medicine 03/14/22 Short Haul Driver Relationship Specialty Start Date End Date Eliceo Gómez Jr. [address] [place] [address] PCP - General Family Medicine 10/14/20 Gwendolyn Stroud CNP [address] [place] [address] Family Medicine 03/14/22 Team Status: Inactive Member Role Status Dates Shannon Gómez , DO Primary Care Provider Active Anibal Valle , DO Emergency Provider Active Short Haul Driver Relationship Specialty Start Date End Date Dalia Eliceo Lugo . [address] [place] [address] PCP - General Family Medicine 10/14/20 Gwendolyn Stroud CNP [address] [place] [address] Family Medicine 03/14/22 Short Haul Driver Relationship Specialty Start Date End Date DaliaEliceo Jr. [address] [place] [address] PCP - General Family Medicine 10/14/20 Gwendolyn Stroud CNP [address] [place] [address] Family Medicine 03/14/22 Short Haul Driver Relationship Specialty Start Date End Date Dalia Eliceo Parish Jenkins. [address] [place] [address] PCP - General Family Medicine 10/14/20 Gwendolyn Stroud CNP [address] [place] [address] Family Medicine 03/14/22 Short Haul Driver Relationship Specialty Start Date End Date Eliceo Gómez Jr., DO [address] [place] [address] PCP - General Family Medicine 10/14/20 Gwendolyn Stroud CNP [address] [place] [address] Family Medicine 03/14/22 Short Haul Driver Relationship Specialty Start Date End Date Eliceo Gómez Jr., DO [address] [place] [address] PCP - General Family Medicine 10/14/20 Gwendolyn Stroud, HOUSE BUILDER [address] [place] [address] Family Medicine 03/14/22 Short Haul Driver Relationship Specialty Start Date End Date Eliceo Gómez Jr., DO [id number] [place] [address] PCP - General Family Medicine 12/11/19 Team Status: Inactive Member Role Status Henrietta Gómez DO Primary Care Provider Active Start: November 23, 2023 End: November 23, 2023 Eagle Vazquez DO Attending Provider Active Start : November 23, 2023 End: November 23, 2023 Short Haul Driver Relationship Specialty Start Date End Date Eliceo Gómez Jr., DO [address] [address] [address] [place] [address] PCP - General Family Medicine 12/11/19 [place] [phone] (Work) Consulting Physician Behavioral Health 12/20/23 Short Haul Driver Relationship Specialty Start Date End Date Eliceo Gómez Jr., DO [address] [place] [address] PCP - General Family Medicine 10/14/20 Gwendolyn Stroud, HOUSE BUILDER [address] [place] [address] Family Medicine 03/14/22 Short Haul Driver Relationship Specialty Start Date End Date Eliceo Gómez Jr., DO [address] [place] [address] PCP - General Family Medicine 12/11/19 [place] [phone] (Work) Consulting Physician Behavioral Health 12/20/23 Short Haul Driver Relationship Specialty Start Date End Date Eliceo Gómez Jr., DO [address] [place] [address] PCP - General Family Medicine 10/14/20 Gwendolyn Stroud CNP [address] [place] [address] Family Medicine 03/14/22 Short Haul Driver Relationship Specialty Start Date End Date Eliceo Gómez Jr., DO [id number] [place] [address] PCP - General Family Medicine 12/11/19 [place] [phone] (Work) Consulting Physician Behavioral Health 12/20/23 Short Haul Driver Relationship Specialty Start Date End Date Eliceo Gómez Jr., DO [address] [place] [address] PCP - General Family Medicine 10/14/20 Gwendolyn Stroud HOUSE BUILDER [address] [place] [address] Family Medicine 03/14/22 Short Haul Driver Relationship Specialty Start Date End Date Eliceo Gómez Jr., DO [address] [place] [address] PCP - General Family Medicine 10/14/20 Gwendolyn Stroud CNP [address] [place] [address] Family Medicine 03/14/22 Short Haul Driver Relationship Specialty Start Date End Date Eliceo Gómez Jr., DO [address] [place] [address] PCP - General Family Medicine 10/14/20 Gwendolyn Stroud CNP [address] [place] [address] Family Medicine 03/14/22 Short Haul Driver Relationship Specialty Start Date End Date Eliceo Gómez Jr., DO [address] [place] [address] PCP - General Family Medicine 10/14/20 Gwendolyn Stroud CNP [address] [place] [address] Family Medicine 03/14/22 Short Haul Driver Relationship Specialty Start Date End Date Eliceo Gómez Jr., DO [address] [place] [address] PCP - General Family Medicine 10/14/20 Gwendolyn Stroud CNP [address] [place] [address] Family Medicine 03/14/22 Short Haul Driver Relationship Specialty Start Date End Date Shannon Gómez, DO [address] [place] [address] PCP - General Family Medicine 11/14/23 Team Status: Inactive Member Role Status Dates Shannon Gómez DO Primary Care Provider Active Start: April 30, 2024 End: April 30, 2024 Sade Felix DPM MS Attending Provider Active Start: April 30, 2024 End: April 30, 2024 Goals (unrecognized section and content) Goals may be documented in a n alternate section Scheduled Active and Recently Administ ered Medications (unrecognized section and content) Medication Order 08/10/2023 08/11/2023 08/12/2023 Acetaminophen (OFIRMEV) IVPB 1,000 mg (COMPLETED) 1,000 mg, Intravenous, Administer over 15 Minutes, On 08/12/23 at 0632, ONCE, 1 dose 0614 (New Bag - Prov ider: Jaren Lopez RN)[id number] (Stopped - Provider: Monserrat Scales RN) aluminum-magnesium hydroxide 200-200 MG/5ML suspension 30 mL (COMPLETED)(Linked Group 1) 30 mL, Oral, ONCE, 1 dose, On 08/12/23 at 0738 0734 (Given - Provid er: Avelino Scott RN) Famotidine (PF) (PEPCID) injection 20 mg (COMPLETED) 20 mg, IV Push, Administer over 2 Minutes, ONCE, 1 dose, On 08/12/23 at 0459 0438 (Given - Provid er: Jaren Lopez [...] BE BASED ON THE PRIMARY CLINICAL RECORDS. [facility]. provides no warranty or guarantee of the accuracy or completeness of information in this document.
[2024-05-13] MEDS: 0.9 % SODIUM CHLORIDE 500 ML IV (07:18)
[2024-05-13] MEDS: BUPIVACAINE HCL 0.25% PF 25 MG/10 ML VIAL 5 ML INJ (07:44)
[2024-05-13] MEDS: DEXAMETHASONE SOD PHOS 10 MG/ML VIAL INJ (07:45)
[2024-05-13] MEDS: LIDOCAINE HCL 2% 400 MG/20 ML MDV 5 ML INJ (07:50)
--- NOTE | 2024-05-13 07:54 | P.ON_ITS ---
Date of procedure: 05/13/24 Pre-op diagnosis: Cervical spondylosis without myelopathy Post-op diagnosis: same as pre-op Procedure: Procedure: Right C2-3, 3-4 radiofrequency ablation Medications: Bupivacaine 0.25% 2cc, lidocaine 2% 3cc, dexamethasone 10mg The patient was seen and examined in the preoperative holding area.? The site was marked.? Written informed consent was obtained and placed on the chart.? The patient was brought to the medical procedure unit and placed in the prone position.? A timeout was completed verifying correct patient, procedure, positioning, and special requirements.? The skin overlying the target points, the designated medial branch, were prepped and draped in the usual sterile fashion.? The target point was achieved with a 20-gauge 15 cm with a 10 mm curved active tip radiofrequency cannula under direct fluoroscopic visualization.? The needle was inserted at level C2 on the right side. Needle tip position was confirmed with lateral fluoroscopic position.? Motor stimulation was carried out at 2 Hz up to 5 volts with the absence of extremity activity.? This was repeated at level C3, 4 on right side.?? Sensory stimulation was carried out.? Concordant pain was realized at the above- mentioned sites.? Then radiofrequency lesioning was carried out times 90 seconds at 80 degrees times 2 lesions at each level.? The radiofrequency probe was removed prior to cannula removal.? The above-mentioned injectate was placed in 1 mL increments.? The needle was removed.? Insertion sites were covered.? The patient was taken to the postoperative recovery area and monitored for an appropriate length of time before being found suitable for discharge in the company of a responsible adult. Anesthesia: MAC Surgeon: Ace Ahumada Pathology: none sent Condition: stable Disposition: no change
[2024-05-13 07:56] VITALS: BP 117/86; PULSE 67; TEMP 36.6; O2SAT 98
[2024-05-13 08:05] VITALS: BP 121/86; PULSE 69; O2SAT 98
== END 2024-05-13 08:23 | disposition home or self-care (01) ==
LOC: SURGOUT 07:06
PROVIDERS: PCP Family Medicine; Visit Provider Anesthesiology
PROC: (CPT 01992; principal; 2024-05-13 07:40)
DX: M47.812 Spondylosis without myelopathy or radiculopathy, cervical region (principal)
CPT/HCPCS: 01992; 64633; 64634; J0665; J1100

== ENCOUNTER 2024-05-17 12:21 | Outpatient (OUT) | payer OTHER, SELFPAY ==
[2024-05-17 13:27] LABS: Basophils Percent Auto 0.3 % (0.2-2.0); Eosinophils Percent Auto 0.6 % (0.9-7.0); Hematocrit 39.9 % (36.0-48.0); Hemoglobin 13.2 g/dL (12.0-16.0); Immature Granulocytes Abs Auto 0.03 10^3/uL (0.00-0.03); Immature Granulocytes Pct Auto 0.5 % (0.0-0.5); Lymphocytes Absolute Auto 1.9 10^3/uL (1.2-3.8); Mean Corpuscular HGB Conc 33.1 g/dL (29.9-35.2); Mean Corpuscular Hemoglobin 29.3 pg (26.7-34.0); Mean Corpuscular Volume 88.5 fL (81.0-99.0); Mean Platelet Volume 8.6 fL (9.5-13.5); Monocytes Absolute Auto 0.4 10^3/uL (0.3-0.8); Monocytes Percent Auto 5.6 % (1.7-12.0); Neutrophils Absolute Auto 4.1 10^3/uL (1.4-6.5); Platelet Count 300 10^3/uL (150-450); Red Blood Count 4.51 10^6/uL (4.20-5.40); Red Cell Distribution Width 13.3 % (11.0-15.0); White Blood Count 6.5 10^3/uL (4.0-11.0)
--- NOTE | 2024-05-17 13:48 | PM.PRESUREVA ---
History of Present Illness History of Present Illness Chief complaint: peroneal tendonitis right leg, pain d/t hardware Narrative: Patient presents for preadmission testing. Please see HPI from Dr. Felix dated May 07, 2024. Review of Systems ROS Narrative Please see ROS from Dr. Felix dated May 07, 2024. [facility] Medical History (Updated 05/17/24 @ 13:50 by Hawa Mcghee NP) Strain of muscle(s) and tendon(s) of peroneal muscle group at lower leg level, right leg, initial encounter ?S86.311A - Strain of muscle(s) and tendon(s) of peroneal muscle group at lower leg level, right leg, initial encounter (ICD-10) Pain in right ankle and joints of right foot ?M25.571 - Pain in right ankle and joints of right foot (ICD-10) Primary osteoarthritis, right ankle and foot ?M19.071 - Primary osteoarthritis, right ankle and foot (ICD-10) Overactive bladder ?N32.81 - Overactive bladder (ICD-10) Insomnia ?G47.00 - Insomnia, unspecified (ICD-10) Bipolar disorder ?F31.9 - Bipolar disorder, unspecified (ICD-10) Gastroparesis ?K31.84 - Gastroparesis (ICD-10) Panic attacks ?F41.0 - Panic disorder [episodic paroxysmal anxiety] (ICD-10) OCD (obsessive compulsive disorder) ?F42.9 - Obsessive-compulsive disorder, unspecified (ICD-10) COVID-19 ?U07.1 - COVID-19 (ICD-10) Migraine ?G43.909 - Migraine, unspecified, not intractable, without status migrainosus (ICD-10) Gastritis ?K29.70 - Gastritis, unspecified, without bleeding (ICD-10) GERD (gastroesophageal reflux disease) ?K21.9 - Gastro-esophageal reflux disease without esophagitis (ICD-10) Peroneal tendinitis ?M76.70 - Peroneal tendinitis, unspecified leg (ICD-10) Posterior tibial tendon dysfunction ?M76.829 - Posterior tibial tendinitis, unspecified leg (ICD-10) Painful orthopaedic hardware ?T84.84XA - Pain due to internal orthopedic prosthetic devices, implants and grafts, initial encounter (ICD-10) Cellulitis ?L03.90 - Cellulitis, unspecified (ICD-10) Post op infection ?T81.40XA - Infection following a procedure, unspecified, initial encounter (ICD-10) Restless leg syndrome ?G25.81 - Restless legs syndrome (ICD-10) Tibialis anterior tendon tear, traumatic ?S86.219A - Strain of muscle(s) and tendon(s) of anterior muscle group at lower leg level, unspecified leg, initial encounter (ICD-10) Osteoarthritis ?M19.90 - Unspecified osteoarthritis, unspecified site (ICD-10) Back pain ?M54.9 - Dorsalgia, unspecified (ICD-10) Sleep disorder ?G47.9 - Sleep disorder, unspecified (ICD-10) PTSD (post-traumatic stress disorder) ?F43.10 - Post-traumatic stress disorder, unspecified (ICD-10) Depression ?F32.A - Depression, unspecified (ICD-10) Anxiety ?F41.9 - Anxiety disorder, unspecified (ICD-10) Sleep apnea ?G47.30 - Sleep apnea, unspecified (ICD-10) Asthma ?J45.909 - Unspecified asthma, uncomplicated (ICD-10) Constipation ?K59.00 - Constipation, unspecified (ICD-10) High cholesterol ?E78.00 - Pure hypercholesterolemia, unspecified (ICD-10) Hypertension ?I10 - Essential (primary) hypertension (ICD-10) Female rectocele with enterocele ?N81.6 - Rectocele (ICD-10) ?K46.9 - Unspecified abdominal hernia without obstruction or gangrene (ICD-10) 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 - Other specified functional intestinal disorders (ICD-10) Surgical History (Updated 05/17/24 @ 13:46 by Hawa Mcghee NP) S/P placement of nerve stimulator (01/02/24) ?Z96.82 - Presence of neurostimulator (ICD-10) S/P placement of nerve stimulator ?Z96.82 - Presence of neurostimulator (ICD-10) History of ankle surgery (11/13/23) ?Z98.890 - Other specified postprocedural states (ICD-10) H/O tooth extraction ?K08.409 - Partial loss of teeth, unspecified cause, unspecified class (ICD-10) H/O foot surgery (05/12/23) ?Z98.890 - Other specified postprocedural states (ICD-10) History of appendectomy (1987) ?Z90.49 - Acquired absence of other specified parts of digestive tract (ICD-10) History of colonoscopy ?Z98.890 - Other specified postprocedural states (ICD-10) History of colectomy (03/2022) ?Z90.49 - Acquired absence of other specified parts of digestive tract (ICD-10) History of tonsillectomy and adenoidectomy ?Z90.89 - Acquired absence of other organs (ICD-10) History of hysterectomy (2014) ?Z90.710 - Acquired absence of both cervix and uterus (ICD-10) History of arthroplasty of right ankle ?Z98.890 - Other specified postprocedural states (ICD-10) History of repair of rotator cuff ?Z98.890 - Other specified postprocedural states (ICD-10) S/P ankle ligament repair (2020) ?Z98.890 - Other specified postprocedural states (ICD-10) Family History Other Family history of Alzheimer's disease Family history of coronary artery disease Family history of heart disease Family history of hypertension Social History Within the past year, how often did you have a drink containing alcohol: never Score interpretation: A score less than 3 is consistent with normal alcohol consumption. Smoking status: Never smoker Non-prescribed substance use: denies use Previous occupational history: unemployed Highest level of school completed/degree received: some college, no degree Little interest or pleasure in doing things: not at all Feeling down, depressed, or hopeless: not at all Feel stressed/tense/nervous/anxious/difficulty sleeping: only a little Due to disability, difficulty making decisions: No Do you think of yourself as: straight/heterosexual Gender Identity: female Meds Home Medications and Allergies Home Medications ?Medication ?Instructions ?Recorded ?Confirmed ?Type fremanezumab-vfrm 225 mg/1.5 mL 125 mg subcut .[id number] 05/04/23 05/17/24 History subcutaneous auto-injector (Ajovy) ropinirole 1 mg tablet 1 mg PO QAM 05/04/23 05/17/24 History ropinirole 2 mg tablet 2 mg PO QPM 05/04/23 05/17/24 History fluticasone fur. 100 mcg-umeclid 1 inh inhalation Q24H 11/03/23 05/17/24 History 62.5 mcg-vilant 25 mcg inhalat.powder (Trelegy Ellipta) lamotrigine 25 mg disintegrating 25 mg PO DAILY 11/03/23 05/17/24 History tablet hydrocodone 5 mg-acetaminophen 325 1 tab PO Q6H PRN pain #12 tabs 04/21/24 05/17/24 Rx mg tablet albuterol sulfate 90 mcg/actuation 2 inh inhalation Q6H PRN shortness 05/17/24 05/17/24 History aerosol inhaler of breath or wheezing aripiprazole 300 mg suspension, 300 mg IM Q28D 05/17/24 05/17/24 History extended rel. intramuscular syringe (Lolis Ruhs) atenolol 50 mg tablet 50 mg PO Q24H 05/17/24 05/17/24 History cetirizine 10 mg tablet 10 mg PO DAILY 05/17/24 05/17/24 History cholecalciferol (vitamin D3) 125 5,000 unit PO DAILY 05/17/24 05/17/24 History mcg (5,000 unit) tablet daridorexant 50 mg tablet (Quviviq) 50 mg PO QPM 05/17/24 05/17/24 History ferrous sulfate 325 mg (65 mg 325 mg PO DAILY 05/17/24 05/17/24 History iron) tablet lisdexamfetamine 70 mg capsule 70 mg PO DAILY 05/17/24 05/17/24 History (Vyvanse) losartan 25 mg tablet 25 mg PO DAILY 05/17/24 05/17/24 History omeprazole 40 mg capsule,delayed 40 mg PO DAILY 05/17/24 05/17/24 History release Allergies Allergy/AdvReac Type Severity Reaction Status Date / Time risperidone [From Risperdal] AdvReac Mild breast Verified 05/17/24 12:55 nipples leak Exam Narrative Exam Narrative: Constitutional: Awake, alert, comfortable, well-appearing, nontoxic, interactive, vital signs as charted Head: Normocephalic, atraumatic Neck: Supple, normal appearance, normal range of motion, no meningeal signs, no lymphadenopathy Respiratory: No respiratory distress, breath sounds clear Cardiovascular: Regular rate and rhythm, strong and regular heart tones Skin: No rashes or induration, no lesions, only visible skin inspected Neuro: No neurological deficits, normal sensation Psychiatric: Oriented ?3, normal affect Assessment and Plan Assessment and Plan (1) Peroneal tendinitis: (2) Painful orthopaedic hardware: (3) Primary osteoarthritis, right ankle and foot: (4) Pain in right ankle and joints of right foot: (5) Strain of muscle(s) and tendon(s) of peroneal muscle group at lower leg level, right leg, initial encounter: Plan Right peroneal tendon repair versus transfer and possible removal of Campbell wedge scheduled with Dr. Felix May 27, 2024.
== END 2024-05-17 12:22 | disposition home or self-care (01) ==
LOC: PST 12:21
PROVIDERS: PCP Family Medicine; Visit Provider Podiatrist Foot & Ankle Surgery
DX: Z01.812 Encounter for preprocedural laboratory examination (principal); M76.71 Peroneal tendinitis, right leg; T84.84XA Pain due to internal orthopedic prosthetic devices, implants and grafts, initial encounter; D64.9 Anemia, unspecified
CPT/HCPCS: 85025; G0463

== ENCOUNTER 2024-05-20 08:26 | Outpatient (OUT) | payer OTHER, SELFPAY ==
--- NOTE | 2024-05-20 08:27 | ECG_ITS ---
The [facility] Test Date: 2024-05-20 Pat Name: ELSIE FUENTES Department: Room: - Gender: Female Crab Picker: : [id number] Requested By: SADE WILDE Order Number: [id number] Reading MD: ALEX MARCUS Measurements Intervals [place] Rate: 59 P: 36 MA: 169 QRS: 22 QRSD: 105 T: 13 QT: 408 QTc: 406 Interpretive Statements SINUS BRADYCARDIA Non-Specific T wave inversion in III Compared to ECG 11/03/2023 08:38:21 Electronically Signed On 05-21-2024 5:22:59 EDT by ALEX MARCUS
== END 2024-05-20 08:27 | disposition home or self-care (01) ==
LOC: PST 08:26
PROVIDERS: PCP Family Medicine; Visit Provider Podiatrist Foot & Ankle Surgery
DX: Z01.810 Encounter for preprocedural cardiovascular examination (principal); M76.71 Peroneal tendinitis, right leg; T84.84XA Pain due to internal orthopedic prosthetic devices, implants and grafts, initial encounter
CPT/HCPCS: 93005

== ENCOUNTER 2024-05-28 10:27 | Observation (INO) | payer OTHER, SELFPAY ==
[2024-05-17 13:20] VITALS: BP 147/93; PULSE 79; TEMP 36.4; O2SAT 98; BMI 25.7
[2024-05-27] VITALS (13 sets, daily range): BP systolic 99–122; BP diastolic 63–78; PULSE 60–86; TEMP 36.1–36.6; O2SAT 96–100; BMI 25.8
[2024-05-27 10:02] LABS: Basophils Percent Auto 0.6 % (0.2-2.0); Eosinophils Absolute Auto 0.1 10^3/uL (0.0-0.7); Eosinophils Percent Auto 1.2 % (0.9-7.0); Hematocrit 39.5 % (36.0-48.0); Immature Granulocytes Abs Auto 0.02 10^3/uL (0.00-0.03); Immature Granulocytes Pct Auto 0.3 % (0.0-0.5); Lymphocytes Absolute Auto 2.5 10^3/uL (1.2-3.8); Lymphocytes Percent Auto 38.7 % (20.5-60.0); Mean Corpuscular HGB Conc 32.9 g/dL (29.9-35.2); Mean Corpuscular Hemoglobin 29.4 pg (26.7-34.0); Mean Corpuscular Volume 89.4 fL (81.0-99.0); Mean Platelet Volume 8.6 fL (9.5-13.5); Monocytes Absolute Auto 0.4 10^3/uL (0.3-0.8); Monocytes Percent Auto 6.6 % (1.7-12.0); Neutrophils Absolute Auto 3.4 10^3/uL (1.4-6.5); Neutrophils Percent Auto 52.6 % (43.0-75.0); Platelet Count 338 10^3/uL (150-450); Red Blood Count 4.42 10^6/uL (4.20-5.40); Red Cell Distribution Width 13.2 % (11.0-15.0); White Blood Count 6.5 10^3/uL (4.0-11.0)
[2024-05-27 10:16] LABS: Glucometer 88 mg/dL (74-106)
[2024-05-27] MEDS: LACTATED RINGER'S SOLUTION 1,000 ML 50 ML IV ×2 (10:26→11:52)
[2024-05-27] MEDS: CEFAZOLIN SODIUM/DEXTROSE,ISO 2 GM/50 ML PIGGYBACK IV ×2 (11:14→21:35)
--- NOTE | 2024-05-27 12:38 | P.ORON_ITS ---
Brief Operative Note Date of procedure: 05/27/24 Pre-op diagnosis general: Right osseous deficit of calcaneus, painful retained hardware, peroneal tendinitis Post-op diagnosis: same as pre-op Procedure: Procedures performed: Right incision of calcaneal bone with removal of retained hardware and peroneal tenolysis Indications for procedure: Patient is a 54-year-old female well-known to my practice who underwent right foot reconstruction on 10/17/2022 which involved Campbell, cotton and medial displacement calcaneal osteotomy. Unfortunately patient had a fall during the postoperative period and subsequently developed calcaneocuboid subluxation which caused persistent pain. Due to failure to improve with nonoperative care she underwent right foot revision surgery with triple arthrodesis on 05/12/2023. She then underwent hardware removal and peroneal tendon transfer on 11/13/23. Since that time she has had persistent pinpoint pain and tenderness over the anterior process of the calcaneus and did not significantly improve from her last surgery. X-rays showed stable Campbell wedge but there was concern for the plantar lateral corner being somewhat prominent. MRI recently showed mild tenosynovitis of the peroneal tendons. Due to her failure to recover I discussed peroneal tendon repair/debridement and possible removal of her Campbell wedge. Given patient was having difficulty with daily pain and dysfunction preventing her from working normal shifts patient wished to undergo the above procedures. I discussed potential risks and benefits of the procedure and all questions were answered to her satisfaction. Intraoperative findings: Peroneal tendons with adhesions and scar with retained allograft otherwise tendons were intact without tear. There was bone growing over the Campbell wedge on the lateral surface with only a small area being visible on the plantar lateral corner. Bone from the lateral calcaneus was chiseled away exposing the calcaneal wedge which was stable but slightly malrotated. Upon removal of the wedge there was a significant amount of bony ingrowth into the center of the wedge. The foot was stressed on the table and under fluoroscopy in this area appeared stable without motion. 9 mm osseous deficit was noted within the anterior process after removal requiring the bone to be further debrided and grafted with allograft. Procedure in detail: Patient was identified in preoperative holding by myself which time correct side and site were marked and consent was obtained. Regional anesthesia was performed by the anesthesia team. Preoperative antibiotics were started. Patient was brought back to the operating theater placed on table in supine position with a thigh tourniquet. Right lower extremity was prepped and draped in usual sterile fashion and formal timeout was performed. The operative extremity was exsanguinated and tourniquet was inflated. Lateral extensile incision was placed from the distal lateral malleolus to the level of the cuboid over the peroneal tendons. Combination of sharp and blunt dissection getting access to the peroneal tendons well coagulating all bleeders and protecting the sural nerve. The tendons were very adhesed which included the previously placed tendon allograft. The allograft was excised and passed the back table the tendons were debrided and released of all adhesions. Further inspection revealed no tear in the peroneal tendons from the fibular groove to the level of the cuboid. Once fully debrided and released further dissection to the anterior process of the calcaneus was performed. Nearly all of the Campbell wedge was covered by osseous overgrowth with the exception of the plantar lateral corner which was visualized and slightly prominent. Osteotomes were used to remove bone from the lateral surface of the wedge. Then a sagittal saw was used to free the distal surface of the wedge followed by the proximal surface of the wedge running the sawblade directly against the wedge in attempt to minimize bone loss. Then osteotomes were used on the plantar and dorsal surface of the wedge. The wedge was then removed leaving a osseous deficit of 9 mm. The distal and proximal surfaces of the calcaneus within the deficit were then drilled with a 2.0 mm drill bit ensuring that much of the sclerotic bone was broken apart. The surgical site was irrigated with copious saline. SPARC bone allograft was then speckled into the anterior process of the calcaneus on its distal and proximal surfaces an allograft Sean wedge was prepared on the back table removing 3 mm of the medial aspect with a rongeur. The pieces that were removed from the wedge were packed into the deficit then the wedge was placed allowing it to be slightly subsided from the lateral wall of the calcaneus. Then any remaining SPARC allograft was packed on the lateral, dorsal and plantar surfaces of the wedge. Then Cerament bone void filler was placed on all visible surfaces of the wedge. The bone void filler was allowed to fully dry and the surgical site was irrigated with copious saline. The incision was then closed in layers and tourniquet was deflated with a prompt hyperemic response. A dry sterile dressing followed by a multilayer modified Guaman posterior splint was applied. Patient tolerated procedure and anesthesia well was transferred to the recovery room with vital signs stable and brisk capillary refill to the right toes. Postoperative plan: Transfer to medical surgical unit to be admitted under the hospitalist Nonweightbearing right foot Physical therapy for gait training Perioperative antibiotics, DVT prophylaxis and multimodal pain medication order ed Estimated length of stay 1-2 nights Will follow Implants: Medline 8 mm Campbell wedge allograft 2 cc of [employer] Sparc allograft 5 cc of Cermament bone void filler Anesthesia: regional and General-LMA Surgeon: Jacob Felix Supervisor [employer] Department: Naveen Gonzalez Estimated blood loss (mL): 10 Pathology: other (Campbell calcaneal wedge) Condition: stable Disposition: PACU
--- NOTE | 2024-05-27 12:42 | FL_ITS ---
[address] [address] Patient Name: ELSIE FUENTES MRN: [id number] date: 1970 Sex: F Assigned Patient Location: SURGOUT Current Patient Location: [place] Accession/Order Number: [id number] Exam Date: 05/27/2024 11:35 Report Date: 05/29/2024 08:32 At the request of: SADE WILDE Procedure: FL fluoroscopy <1hr NON-READ EXAM: FL fluoroscopy <1hr NON-READ HISTORY: TECHNIQUE: FINDINGS: Please see Operative Report. Electronically authenticated by: RADIOLOGIST NO Date: 05/29/2024 08:32
--- NOTE | 2024-05-27 13:19 | XR_ITS ---
The [address] [address] Patient Name: ELSIE FUENTES MRN: [id number] date: 1970 Sex: F Assigned Patient Location: [facility] Current Patient Location: [place] Accession/Order Number: [id number] Exam Date: 05/27/2024 13:50 Report Date: 05/28/2024 13:20 At the request of: RITCHIE SALCIDO Procedure: XR foot RT min 3V PROCEDURE: XR foot RT min 3V HISTORY: postop xr COMPARISON: XR foot right 04/17/2024 FINDINGS: BONES:Interval removal of prosthetic wedge previously placed within the anterior calcaneal osteotomy. Stable appearance remaining hardware. SOFT TISSUES:Mild soft tissue swelling and scattered subcutaneous air consistent with postoperative state. Images were obtained to cast material. EFFUSION:None visible. OTHER: Negative. XR/XR foot RT min 3V IMPRESSION: 1. Surgical revision as detailed above. Electronically authenticated by: ZAIDA ACOSTA Date: 05/28/2024 13:20
--- NOTE | 2024-05-27 14:02 | PC.NURSE ---
1348- Patient c/o need to void and unable to void on her own. Dr. Lagos aware and new order received. Patient straight cathed for 600 cc of clear yellow urine. Patient tolerated it well
[2024-05-27 14:08] LABS: Glucometer 103 mg/dL (74-106)
--- NOTE | 2024-05-27 15:04 | PM.PN ---
Progress Note: Subjective Subjective Interval history: patient is a 54 y.o white female with past medical history of RLS, bipolar disorder, HTN, GERD, seasonal allergies, anxiety, asthma who had right ankle hardware removal and peroneal tendon debridement today by podiatry, Dr. Felix. I am seeing her in the post operative setting. She denies any current issues. Some mile foot pain and low back pain. Exam Narrative Exam Narrative: General: Patient is alert, and oriented to person, place and time with normal affect, proper hygiene Skin: no visible rashes, or ulcers Head: atraumatic, acephalic Eyes: PERRLA, no nystagmus present, conjunctiva clear, no scleral icterus Ears: normal gross auditory acuity Heart: Normal rate and rhythm, no murmurs/rubs/gallops Lungs: no audible wheezes, crackles and normal breath sounds all lung hunter Abdomen: Normal audible bowel sounds, no distension, No palpable masses, no organomegaly, no rebound/guarding/ or rigidity Musculoskeletal: right foot dressing is c/d/i and elevated Neuro: CN II-X grossly intact Constitutional Vital Signs, click to edit/add: Last Vital Signs Temp 97.6 F 05/27/24 14:36 Pulse 72 05/27/24 14:36 Resp 18 05/27/24 14:36 BP 122/74 05/27/24 14:36 Pulse Ox 98 05/27/24 14:36 O2 Del Method Room Air 05/27/24 14:36 Progress Note: Objective Labs Labs: Short CBC 05/27/24 Range/Units 09:58 WBC 6.5 (4.0-11.0) 10^3/uL Hgb 13.0 (12.0-16.0) g/dL Hct 39.5 (36.0-48.0) % Plt Count 338 (150-450) 10^3/uL Progress Note: A&P Assessment and Plan (1) Post-operative pain: Assessment and Plan: Pain control per primary team, physical therapy Eval (2) Pain in right ankle and joints of right foot: (3) Primary osteoarthritis, right ankle and foot: Assessment and Plan: s/p surgery today (4) Posterior tibial tendon dysfunction (PTTD) of right lower extremity: (5) Bipolar disorder: Assessment and Plan: continue home meds Qualifiers: Active/Remission status: remission status unspecified Qualified Code(s): F31.9 - Bipolar disorder, unspecified (6) Panic attacks: (7) GERD (gastroesophageal reflux disease): Assessment and Plan: continue omeprazole Qualifiers: Esophagitis presence: esophagitis presence not specified Qualified Code(s): K21.9 - Gastro-esophageal reflux disease without esophagitis (8) Asthma: Assessment and Plan: continue PRN inhalers Qualifiers: Asthma severity: unspecified severity Asthma persistence: unspecified Asthma complication type: unspecified Qualified Code(s): J45.909 - Unspecified asthma, uncomplicated (9) High cholesterol: Assessment and Plan: continue home meds (10) Hypertension: Assessment and Plan: continue losartan and monitor Qualifiers: Hypertension type: primary hypertension Qualified Code(s): I10 - Essential (primary) hypertension Plan patient is a full code pain control and PT evaluation, hopeful discharge home tomorrow
[2024-05-27] MEDS: OXYCODONE HCL 5 MG TABLET PO (17:53)
[2024-05-27] MEDS: ROPINIROLE HCL 1 MG TABLET 2 MG PO (19:37)
--- NOTE | 2024-05-27 20:15 | RESP.RT ---
No PRN breathing tx given. Pt denies need. No respiratory distress noted.
[2024-05-27] MEDS: ENOXAPARIN SODIUM 40 MG/0.4 ML SYRINGE SUBQ (21:35)
[2024-05-27] MEDS: [UNRECOGNIZED DRUG - OTHER] 50 EACH PO (21:35)
[2024-05-27] MEDS: PREGABALIN 75 MG CAPSULE PO (21:35)
[2024-05-27] MEDS: OXYCODONE HCL/ACETAMINOPHEN 5MG/325MG 1 TAB PO (21:59)
[2024-05-28] VITALS (8 sets, daily range): BP systolic 106–134; BP diastolic 60–80; PULSE 58–77; TEMP 36.4–36.9; O2SAT 95–98; BMI 25.8
[2024-05-28] MEDS: OXYCODONE HCL 5 MG TABLET PO ×3 (05:34→17:02)
[2024-05-28] MEDS: OMEPRAZOLE 40 MG CAPSULE.DR PO (05:34)
[2024-05-28] MEDS: CEFAZOLIN SODIUM/DEXTROSE,ISO 2 GM/50 ML PIGGYBACK IV ×3 (05:34→19:58)
[2024-05-28 06:02] LABS: Basophils Percent Auto 0.1 % (0.2-2.0); Eosinophils Percent Auto 0.1 % (0.9-7.0); Hematocrit 34.7 % (36.0-48.0); Hemoglobin 11.4 g/dL (12.0-16.0); Immature Granulocytes Abs Auto 0.04 10^3/uL (0.00-0.03); Immature Granulocytes Pct Auto 0.4 % (0.0-0.5); Lymphocytes Absolute Auto 1.6 10^3/uL (1.2-3.8); Lymphocytes Percent Auto 15.6 % (20.5-60.0); Mean Corpuscular HGB Conc 32.9 g/dL (29.9-35.2); Mean Corpuscular Hemoglobin 29.5 pg (26.7-34.0); Mean Corpuscular Volume 89.9 fL (81.0-99.0); Monocytes Absolute Auto 0.5 10^3/uL (0.3-0.8); Monocytes Percent Auto 4.8 % (1.7-12.0); Neutrophils Absolute Auto 8.2 10^3/uL (1.4-6.5); Platelet Count 278 10^3/uL (150-450); Red Blood Count 3.86 10^6/uL (4.20-5.40); Red Cell Distribution Width 13.3 % (11.0-15.0); White Blood Count 10.4 10^3/uL (4.0-11.0)
[2024-05-28 06:13] LABS: Alanine Aminotransferase 34 U/L (14-59); Albumin Level 2.9 g/dL (3.4-5.0); Alkaline Phosphatase 84 U/L (46-116); Anion Gap 8.5; Aspartate Amino Transferase 18 U/L (15-37); BUN Creatinine Ratio 20.6; Bilirubin Total 0.2 mg/dL (0.2-1.0); Calcium 8.9 mg/dL (8.5-10.1); Carbon Dioxide 29.9 mmol/L (21.0-32.0); Chloride 104 mmol/L (98-107); Estimated GFR (African America >60 (>=60); Estimated GFR (Non-African Ame >60 (>=60); Globulin 2.8 g/dL; Glucose 168 mg/dL (74-106); Potassium 4.4 mmol/L (3.5-5.1); Sodium 138 mmol/L (136-145); Total Protein 5.7 g/dL (6.4-8.2)
[2024-05-28] MEDS: PREGABALIN 75 MG CAPSULE PO ×2 (08:26→21:30)
[2024-05-28] MEDS: ATENOLOL 50 MG TABLET PO (08:26)
[2024-05-28] MEDS: CETIRIZINE HCL 10 MG TABLET PO (08:26)
[2024-05-28] MEDS: LOSARTAN POTASSIUM 25 MG TABLET PO (08:27)
[2024-05-28] MEDS: ROPINIROLE HCL 1 MG TABLET PO (08:27)
[2024-05-28] MEDS: Fluticasone-Umeclidin-Vilanter [Trelegy Ellipta] 100-62.5-25 mcg 1 EACH IH (08:28)
--- NOTE | 2024-05-28 08:32 | P.DS_ITS ---
DS: Providers Provider Primary care physician: Isatu CASTRO Consults: 05/27/24 Consult to Dietitian Routine Reason for consultation: Weight loss 05/27/24 13:20 Consult to P 3 Armament/Ordnance Ima Technician Routine Reason for consult:: Prison Other reason:: Possible SNF, anticipate DC home Physical Therapy Eval and Treat Routine Reason for consultation: postop gait eval/fall risk, nwb rle DS: Diagnosis Discharge Diagnosis (1) Post-operative pain: (2) Pain in right ankle and joints of right foot: (3) Primary osteoarthritis, right ankle and foot: (4) Posterior tibial tendon dysfunction (PTTD) of right lower extremity: (5) Bipolar disorder: Qualifiers: Active/Remission status: remission status unspecified Qualified Code(s): F31.9 - Bipolar disorder, unspecified (6) Panic attacks: (7) GERD (gastroesophageal reflux disease): Qualifiers: Esophagitis presence: esophagitis presence not specified Qualified Code(s): K21.9 - Gastro-esophageal reflux disease without esophagitis (8) Asthma: Qualifiers: Asthma severity: unspecified severity Asthma persistence: unspecified Asthma complication type: unspecified Qualified Code(s): J45.909 - Unspecified asthma, uncomplicated (9) High cholesterol: (10) Hypertension: Qualifiers: Hypertension type: primary hypertension Qualified Code(s): I10 - Essential (primary) hypertension DS: Summary Time Spent with Patient Time attestation: Total time spent providing and/or coordinating discharge services: Exam Constitutional Vital Signs, click to edit/add: Last Vital Signs Temp 97.7 F 05/28/24 07:35 Pulse 58 L 05/28/24 07:35 Resp 16 05/28/24 07:39 BP 107/60 05/28/24 07:35 Pulse Ox 97 05/28/24 07:35 O2 Del Method Room Air 05/28/24 07:35 DS: Data Data Completed and Pending Labs on day of discharge: Labs from last 24 hours 05/28/24 05/27/24 05/27/24 05:29 14:06 10:14 WBC 10.4 RBC 3.86 L Hgb 11.4 L Hct 34.7 L MCV 89.9 MCH 29.5 MCHC 32.9 RDW 13.3 Plt Count 278 MPV 9.0 L Neut % (Auto) 79.0 H Lymph % (Auto) 15.6 L [place] % (Auto) 4.8 Eos % (Auto) 0.1 L Baso % (Auto) 0.1 L Neut # (Auto) 8.2 H Lymph # (Auto) 1.6 [place] # (Auto) 0.5 Eos # (Auto) 0.0 Baso # (Auto) 0.0 Abs Immat Gran (auto) 0.04 H Imm/Tot Granulo (auto) 0.4 Sodium 138 Potassium 4.4 Chloride 104 Carbon Dioxide 29.9 Anion Gap 8.5 BUN 13.0 Creatinine 0.63 Est GFR ( Amer) >60 Est GFR (Non-Af Amer) >60 BUN/Creatinine Ratio 20.6 Glucose 168 H Calcium 8.9 Total Bilirubin 0.2 AST 18 ALT 34 Alkaline Phosphatase 84 Total Protein 5.7 L Albumin 2.9 L Globulin 2.8 Albumin/Globulin Ratio 1.0 POC Glucose 103 88 07//24 09:58 WBC 6.5 RBC 4.42 Hgb 13.0 Hct 39.5 MCV 89.4 MCH 29.4 MCHC 32.9 RDW 13.2 Plt Count 338 MPV 8.6 L Neut % (Auto) 52.6 Lymph % (Auto) 38.7 [place] % (Auto) 6.6 Eos % (Auto) 1.2 Baso % (Auto) 0.6 Neut # (Auto) 3.4 Lymph # (Auto) 2.5 [place] # (Auto) 0.4 Eos # (Auto) 0.1 Baso # (Auto) 0.0 Abs Immat Gran (auto) 0.02 Imm/Tot Granulo (auto) 0.3 Sodium Potassium Chloride Carbon Dioxide Anion Gap BUN Creatinine Est GFR ( Amer) Est GFR (Non-Af Amer) BUN/Creatinine Ratio Glucose Calcium Total Bilirubin AST ALT Alkaline Phosphatase Total Protein Albumin Globulin Albumin/Globulin Ratio POC Glucose Discharge Plan Discharge Disposition: Home, Self-Care Condition: Good Discharge Medications: New hydrocodone-acetaminophen 5-325 mg tablet 1 tab PO Q6H PRN (Reason: pain) 7 Days Qty: 28 0RF aspirin [Adult Low Dose Aspirin] 81 mg tablet,delayed release (DR/EC) 81 mg PO BID 30 Days Qty: 60 0RF cefadroxil 500 mg capsule 500 mg PO BID 7 Days Qty: 14 0RF cholecalciferol (vitamin D3) 125 mcg (5,000 unit) capsule 125 mcg PO DAILY 90 Days Qty: 90 0RF sennosides [Senna Laxative] 8.6 mg tablet 8.6 mg PO DAILY PRN (Reason: constipation) 7 Days Qty: 7 0RF tizanidine 2 mg tablet 2 mg PO TID PRN (Reason: muscle spasticity) 7 Days Qty: 21 0RF ondansetron 4 mg tablet,disintegrating 4 mg PO Q8H PRN (Reason: nausea and vomiting) 5 Days Qty: 15 0RF No Action Trelegy Ellipta 100-62.5-25 mcg blister with device 1 inh INHALATION Q24H hydrocodone-acetaminophen 5-325 mg tablet 1 tab PO Q6H PRN (Reason: pain) Qty: 12 0RF ropinirole 1 mg tablet 1 mg PO QAM ropinirole 2 mg tablet 2 mg PO QPM [place] Autoinjector 225 mg/1.5 mL auto-injector 125 mg subcut .[id number] Patient Comments: on the 1st of every month atenolol 50 mg tablet 50 mg PO Q24H Quviviq 50 mg tablet 50 mg PO QPM lisdexamfetamine [Vyvanse] 70 mg capsule 70 mg PO DAILY albuterol sulfate 90 mcg/actuation HFA aerosol inhaler 2 inh INHALATION Q6H PRN (Reason: shortness of breath or wheezing) Abilify Maintena 300 mg suspension,extended rel syring 300 mg IM Q28D cetirizine 10 mg tablet 10 mg PO DAILY cholecalciferol (vitamin D3) 125 mcg (5,000 unit) tablet 5,000 unit PO DAILY ferrous sulfate 325 mg (65 mg iron) tablet 325 mg PO DAILY losartan 25 mg tablet 25 mg PO DAILY omeprazole 40 mg capsule,delayed release(DR/EC) 40 mg PO DAILY Follow Up Appointments: Follow up w/ Dr Felix's Office in 1 week following discharge. Please call the office to confirm appointment Activity Restrictions/Additional Instructions: Please leave dressing to right lower extremity clean dry and intact. Do not attempt to remove the dressing or get it wet. Please maintain nonweightbearing to right foot. Please use crutches walker or knee scooter for assistance. Please take medications as prescribed. Please rest, ice behind the right knee, elevate the right foot above the level of your chest to assist with pain or swelling. Please follow-up with Dr. Felix's office in 1 week. Please call the office to confirm appointment and/or with any questions/concerns. Diet: advance to your usual diet Print Language: Syrian
--- NOTE | 2024-05-28 09:01 | PM.PN ---
Progress Note: Subjective Subjective Interval history: patient is a 54 y.o white female with past medical history of RLS, bipolar disorder, HTN, GERD, seasonal allergies, anxiety, asthma who had right ankle hardware removal and peroneal tendon debridement t by podiatry, Dr. Felix. POD #1, pain is controlled, patient is fearful to home as prior surgery she had to return because of pain. No other issues or concerns today. Exam Narrative Exam Narrative: General: Patient is alert, and oriented to person, place and time with normal affect, proper hygiene Skin: no visible rashes, or ulcers Head: atraumatic, acephalic Eyes: PERRLA, no nystagmus present, conjunctiva clear, no scleral icterus Ears: normal gross auditory acuity Heart: Normal rate and rhythm, no murmurs/rubs/gallops Lungs: no audible wheezes, crackles and normal breath sounds all lung hunter Abdomen: Normal audible bowel sounds, no distension, No palpable masses, no organomegaly, no rebound/guarding/ or rigidity Musculoskeletal: right foot dressing is c/d/i and elevated Neuro: CN II-X grossly intact Constitutional Vital Signs, click to edit/add: Last Vital Signs Temp 97.7 F 05/28/24 07:35 Pulse 58 L 05/28/24 07:35 Resp 16 05/28/24 07:39 BP 107/60 05/28/24 07:35 Pulse Ox 97 05/28/24 07:35 O2 Del Method Room Air 05/28/24 07:35 Progress Note: Objective Labs Labs: Short CBC 05/27/24 05/28/24 Range/Units 09:58 05:29 WBC 6.5 10.4 (4.0-11.0) 10^3/uL Hgb 13.0 11.4 L (12.0-16.0) g/dL Hct 39.5 34.7 L (36.0-48.0) % Plt Count 338 278 (150-450) 10^3/uL BMP 05/28/24 05:29 Sodium 138 Potassium 4.4 Chloride 104 Carbon Dioxide 29.9 BUN 13.0 Creatinine 0.63 Glucose 168 H Calcium 8.9 Liver Function 05/28/24 Range/Units 05:29 Total Bilirubin 0.2 (0.2-1.0) mg/dL AST 18 (15-37) U/L ALT 34 (14-59) U/L Alkaline Phosphatase 84 (46-116) U/L Albumin 2.9 L (3.4-5.0) g/dL Progress Note: A&P Assessment and Plan (1) Post-operative pain: Assessment and Plan: Pain control per primary team, physical therapy Eval (2) Pain in right ankle and joints of right foot: (3) Primary osteoarthritis, right ankle and foot: Assessment and Plan: s/p surgery (4) Posterior tibial tendon dysfunction (PTTD) of right lower extremity: (5) Bipolar disorder: Qualifiers: Active/Remission status: remission status unspecified Qualified Code(s): F31.9 - Bipolar disorder, unspecified (6) Panic attacks: (7) GERD (gastroesophageal reflux disease): Assessment and Plan: continue omeprazole Qualifiers: Esophagitis presence: esophagitis presence not specified Qualified Code(s): K21.9 - Gastro-esophageal reflux disease without esophagitis (8) Asthma: Assessment and Plan: continue PRN inhalers Qualifiers: Asthma complication type: unspecified Asthma persistence: unspecified Asthma severity: unspecified severity Qualified Code(s): J45.909 - Unspecified asthma, uncomplicated (9) High cholesterol: Assessment and Plan: continue home meds (10) Hypertension: Assessment and Plan: continue losartan and monitor Qualifiers: Hypertension type: primary hypertension Qualified Code(s): I10 - Essential (primary) hypertension Plan patient is a full code pain control and PT evaluation, hopeful discharge home tomorrow, patient was made observation hospital status as plan to stay one more night
--- NOTE | 2024-05-28 09:14 | PM.PN ---
Progress Note: Subjective Subjective Interval history: Seen at bedside this a.m. resting comfortably. POD #1 s/p Right incision of calcaneal bone with removal of retained hardware and peroneal tenolysis, DOS 05/27/2024. She denies any acute events overnight. Admits to mild pain this a.m. however states the foot and ankle still feel numb and appears block is still effective. She is primarily concerned following her previous surgery she was discharged day after and presented to the emergency department with intractable pain after arriving home. She denies any other acute lower extremity complaints today. Denies any constitutional symptoms at time of visit. Exam Narrative Exam Narrative: RLE dressing left CDI. CFT intact to digits. Skin temperature warm and symmetric proximal distal dressing with no proximal streaking. No erythema or edema proximal to dressing. Light touch and gross sensation to digits is absent. No active range of motion of digits. Compartments soft and compressible, no pain with calf or thigh compression. Constitutional Vital Signs, click to edit/add: Last Vital Signs Temp 97.7 F 05/28/24 07:35 Pulse 58 L 05/28/24 07:35 Resp 16 05/28/24 07:39 BP 107/60 05/28/24 07:35 Pulse Ox 97 05/28/24 07:35 O2 Del Method Room Air 05/28/24 07:35 Progress Note: Objective Labs Labs: Short CBC 05/27/24 05/28/24 Range/Units 09:58 05:29 WBC 6.5 10.4 (4.0-11.0) 10^3/uL Hgb 13.0 11.4 L (12.0-16.0) g/dL Hct 39.5 34.7 L (36.0-48.0) % Plt Count 338 278 (150-450) 10^3/uL BMP 05/28/24 05:29 Sodium 138 Potassium 4.4 Chloride 104 Carbon Dioxide 29.9 BUN 13.0 Creatinine 0.63 Glucose 168 H Calcium 8.9 Liver Function 05/28/24 Range/Units 05:29 Total Bilirubin 0.2 (0.2-1.0) mg/dL AST 18 (15-37) U/L ALT 34 (14-59) U/L Alkaline Phosphatase 84 (46-116) U/L Albumin 2.9 L (3.4-5.0) g/dL Progress Note: A&P Assessment and Plan (1) Post-operative pain: (2) Pain in right ankle and joints of right foot: (3) Primary osteoarthritis, right ankle and foot: (4) Posterior tibial tendon dysfunction (PTTD) of right lower extremity: (5) Bipolar disorder: Qualifiers: Active/Remission status: remission status unspecified Qualified Code(s): F31.9 - Bipolar disorder, unspecified (6) Panic attacks: (7) GERD (gastroesophageal reflux disease): Qualifiers: Esophagitis presence: esophagitis presence not specified Qualified Code(s): K21.9 - Gastro-esophageal reflux disease without esophagitis (8) Asthma: Qualifiers: Asthma severity: unspecified severity Asthma persistence: unspecified Asthma complication type: unspecified Qualified Code(s): J45.909 - Unspecified asthma, uncomplicated (9) High cholesterol: (10) Hypertension: Qualifiers: Hypertension type: primary hypertension Qualified Code(s): I10 - Essential (primary) hypertension Plan Patient examined evaluated. All findings discussed with patient and all questions answered to patient's satisfaction. Pertinent labs and imaging reviewed. RLE dressing to be left CDI until follow-up. Maintain strict nonweightbearing to right lower extremity. Crutches walker knee scooter for assistance. PT on board. Continue multimodal pain regimen, discussed with patient that block expected to wear off throughout the day today, may experience some rebound pain due to this can require an additional night of observation prior to discharge home. Postop prescriptions sent to patient's pharmacy on file. Rest per primary, please call with questions or concerns.
--- NOTE | 2024-05-28 09:18 | SWNOTE1 ---
SW checked physical therapy notes. Pt refused PT eval as she has had several surgeries and she voiced she knows what she is doing. Has a walker and knee scooter for at home. No anticipated discharge needs.
--- NOTE | 2024-05-28 11:05 | CM.NOTE ---
Rounds made with Dr. Arnold. Potential discharge later today if pain controlled.
[2024-05-28] MEDS: ROPINIROLE HCL 1 MG TABLET 2 MG PO (19:58)
--- NOTE | 2024-05-28 20:08 | RESP.RT ---
No PRN breathing tx given. Pt denies need. No respiratory distress noted.
[2024-05-28] MEDS: ENOXAPARIN SODIUM 40 MG/0.4 ML SYRINGE SUBQ (21:30)
[2024-05-28] MEDS: OXYCODONE HCL 5 MG TABLET 10 MG PO (23:17)
[2024-05-29] MEDS: HYDROMORPHONE HCL 0.5 MG/0.5 ML SYRINGE IV (00:48)
[2024-05-29 04:00] VITALS: BP 127/78; PULSE 63; TEMP 36.6; O2SAT 94
[2024-05-29] MEDS: ACETAMINOPHEN 500 MG TABLET 1000 MG PO (05:20)
[2024-05-29] MEDS: CEFAZOLIN SODIUM/DEXTROSE,ISO 2 GM/50 ML PIGGYBACK IV ×2 (05:20→11:24)
[2024-05-29] MEDS: OMEPRAZOLE 40 MG CAPSULE.DR PO (05:20)
[2024-05-29] MEDS: OXYCODONE HCL 15 MG TABLET PO (05:20)
[2024-05-29 06:26] LABS: Basophils Absolute Auto 0.1 10^3/uL (0.0-0.1); Basophils Percent Auto 0.7 % (0.2-2.0); Eosinophils Absolute Auto 0.1 10^3/uL (0.0-0.7); Hematocrit 35.3 % (36.0-48.0); Hemoglobin 10.9 g/dL (12.0-16.0); Immature Granulocytes Abs Auto 0.02 10^3/uL (0.00-0.03); Immature Granulocytes Pct Auto 0.3 % (0.0-0.5); Lymphocytes Absolute Auto 2.5 10^3/uL (1.2-3.8); Lymphocytes Percent Auto 35.9 % (20.5-60.0); Mean Corpuscular HGB Conc 30.9 g/dL (29.9-35.2); Mean Corpuscular Hemoglobin 28.8 pg (26.7-34.0); Mean Corpuscular Volume 93.4 fL (81.0-99.0); Mean Platelet Volume 8.9 fL (9.5-13.5); Monocytes Absolute Auto 0.4 10^3/uL (0.3-0.8); Monocytes Percent Auto 5.5 % (1.7-12.0); Neutrophils Percent Auto 56.6 % (43.0-75.0); Platelet Count 260 10^3/uL (150-450); Red Blood Count 3.78 10^6/uL (4.20-5.40); Red Cell Distribution Width 13.6 % (11.0-15.0); White Blood Count 7.1 10^3/uL (4.0-11.0)
[2024-05-29 06:44] LABS: Alanine Aminotransferase 25 U/L (14-59); Albumin Level 2.6 g/dL (3.4-5.0); Alkaline Phosphatase 79 U/L (46-116); Anion Gap 12.6; Aspartate Amino Transferase 17 U/L (15-37); BUN Creatinine Ratio 14.6; Bilirubin Total 0.2 mg/dL (0.2-1.0); Carbon Dioxide 27.1 mmol/L (21.0-32.0); Chloride 108 mmol/L (98-107); Estimated GFR (African America >60 (>=60); Estimated GFR (Non-African Ame >60 (>=60); Globulin 2.6 g/dL; Glucose 108 mg/dL (74-106); Potassium 3.7 mmol/L (3.5-5.1); Sodium 144 mmol/L (136-145); Total Protein 5.2 g/dL (6.4-8.2)
[2024-05-29 07:19] VITALS: BP 119/74; PULSE 60; TEMP 36.7; O2SAT 94
[2024-05-29] MEDS: ROPINIROLE HCL 1 MG TABLET PO (08:17)
[2024-05-29] MEDS: CETIRIZINE HCL 10 MG TABLET PO (08:17)
[2024-05-29] MEDS: ATENOLOL 50 MG TABLET PO (08:18)
[2024-05-29] MEDS: PREGABALIN 75 MG CAPSULE PO (08:18)
[2024-05-29] MEDS: LOSARTAN POTASSIUM 25 MG TABLET PO (08:18)
--- NOTE | 2024-05-29 08:41 | PM.DS1 ---
DS: Providers Provider Date of admission: 05/28/24 10:27 Primary care physician: Isatu CASTRO Consults: 05/27/24 Consult to Dietitian Routine Reason for consultation: Weight loss 05/27/24 13:20 Consult to Pinking Machine Operator Routine Reason for consult:: Residential Other reason:: Possible SNF, anticipate DC home Physical Therapy Eval and Treat Routine Reason for consultation: postop gait eval/fall risk, nwb rle DS: Diagnosis Discharge Diagnosis (1) Post-operative pain: (2) Pain in right ankle and joints of right foot: (3) Primary osteoarthritis, right ankle and foot: (4) Posterior tibial tendon dysfunction (PTTD) of right lower extremity: (5) Bipolar disorder: Qualifiers: Active/Remission status: remission status unspecified Qualified Code(s): F31.9 - Bipolar disorder, unspecified (6) Panic attacks: (7) GERD (gastroesophageal reflux disease): Qualifiers: Esophagitis presence: esophagitis presence not specified Qualified Code(s): K21.9 - Gastro-esophageal reflux disease without esophagitis (8) Asthma: Qualifiers: Asthma complication type: unspecified Asthma persistence: unspecified Asthma severity: unspecified severity Qualified Code(s): J45.909 - Unspecified asthma, uncomplicated (9) High cholesterol: (10) Hypertension: Qualifiers: Hypertension type: primary hypertension Qualified Code(s): I10 - Essential (primary) hypertension DS: Summary Hospital Course Hospital Course: patient is a 54 y.o white female with past medical history of RLS, bipolar disorder, HTN, GERD, seasonal allergies, anxiety, asthma who had right ankle hardware removal and peroneal tendon debridement t by podiatry, Dr. Felix. POD #2, pain is controlled, post op prescriptions including pain control sent to pharmacy per primary podiatry team. Labs and vitals all stable today, Discharge home today with follow up with podiatry as scheduled. No other issues or concerns today. RLE dressing to be left CDI until follow-up. Maintain strict nonweightbearing to right lower extremity. Crutches walker knee scooter for assistance. Status at Discharge Overall status at discharge: patient is progressing back to baseline Time Spent with Patient Time attestation: Total time spent providing and/or coordinating discharge services: Time spent: greater than 30 minutes Exam Narrative Exam Narrative: General: Patient is alert, and oriented to person, place and time with normal affect, proper hygiene Skin: no visible rashes, or ulcers Head: atraumatic, acephalic Eyes: PERRLA, no nystagmus present, conjunctiva clear, no scleral icterus Ears: normal gross auditory acuity Heart: Normal rate and rhythm, no murmurs/rubs/gallops Lungs: no audible wheezes, crackles and normal breath sounds all lung hunter Abdomen: Normal audible bowel sounds, no distension, No palpable masses, no organomegaly, no rebound/guarding/ or rigidity Musculoskeletal: right foot dressing is c/d/i and elevated Neuro: CN II-X grossly intact Constitutional Vital Signs, click to edit/add: Last Vital Signs Temp 98.0 F 05/29/24 07:19 Pulse 60 05/29/24 07:19 Resp 16 05/29/24 04:00 BP 119/74 05/29/24 07:19 Pulse Ox 94 L 05/29/24 07:19 O2 Del Method Room Air 05/29/24 07:19 DS: Data Data Completed and Pending Labs on day of discharge: Labs from last 24 hours 05/29/24 05:53 WBC 7.1 RBC 3.78 L Hgb 10.9 L Hct 35.3 L MCV 93.4 MCH 28.8 MCHC 30.9 RDW 13.6 Plt Count 260 MPV 8.9 L Neut % (Auto) 56.6 Lymph % (Auto) 35.9 [place] % (Auto) 5.5 Eos % (Auto) 1.0 Baso % (Auto) 0.7 Neut # (Auto) 4.0 Lymph # (Auto) 2.5 [place] # (Auto) 0.4 Eos # (Auto) 0.1 Baso # (Auto) 0.1 Abs Immat Gran (auto) 0.02 Imm/Tot Granulo (auto) 0.3 Sodium 144 Potassium 3.7 Chloride 108 H Carbon Dioxide 27.1 Anion Gap 12.6 BUN 12.0 Creatinine 0.82 Est GFR ( Amer) >60 Est GFR (Non-Af Amer) >60 BUN/Creatinine Ratio 14.6 Glucose 108 H Calcium 8.0 L Total Bilirubin 0.2 AST 17 ALT 25 Alkaline Phosphatase 79 Total Protein 5.2 L Albumin 2.6 L Globulin 2.6 Albumin/Globulin Ratio 1.0 Discharge Plan Discharge Disposition: Home, Self-Care Condition: Good Discharge Medications: New cefadroxil 500 mg capsule 500 mg PO BID 7 Days Qty: 14 0RF cholecalciferol (vitamin D3) 125 mcg (5,000 unit) capsule 125 mcg PO DAILY 90 Days Qty: 90 0RF sennosides [Senna Laxative] 8.6 mg tablet 8.6 mg PO DAILY PRN (Reason: constipation) 7 Days Qty: 7 0RF tizanidine 2 mg tablet 2 mg PO TID PRN (Reason: muscle spasticity) 7 Days Qty: 21 0RF ondansetron 4 mg tablet,disintegrating 4 mg PO Q8H PRN (Reason: nausea and vomiting) 5 Days Qty: 15 0RF hydrocodone-acetaminophen 7.5-325 mg tablet 1 tab PO Q6H PRN (Reason: pain) 7 Days Qty: 28 0RF enoxaparin [Lovenox] 40 mg/0.4 mL syringe 40 mg subcut Q24H 30 Days Qty: 12 0RF Continued Trelegy Ellipta 100-62.5-25 mcg blister with device 1 inh INHALATION Q24H hydrocodone-acetaminophen 5-325 mg tablet 1 tab PO Q6H PRN (Reason: pain) Qty: 12 0RF ropinirole 1 mg tablet 1 mg PO QAM ropinirole 2 mg tablet 2 mg PO QPM [place]ovy Autoinjector 225 mg/1.5 mL auto-injector 125 mg subcut .[id number] Patient Comments: on the 1st of every month atenolol 50 mg tablet 50 mg PO Q24H Quviviq 50 mg tablet 50 mg PO QPM lisdexamfetamine [Vyvanse] 70 mg capsule 70 mg PO DAILY albuterol sulfate 90 mcg/actuation HFA aerosol inhaler 2 inh INHALATION Q6H PRN (Reason: shortness of breath or wheezing) Abilify Maintena 300 mg suspension,extended rel syring 300 mg IM Q28D cetirizine 10 mg tablet 10 mg PO DAILY cholecalciferol (vitamin D3) 125 mcg (5,000 unit) tablet 5,000 unit PO DAILY ferrous sulfate 325 mg (65 mg iron) tablet 325 mg PO DAILY losartan 25 mg tablet 25 mg PO DAILY omeprazole 40 mg capsule,delayed release(DR/EC) 40 mg PO DAILY Activity: other Activity Detail: RLE dressing to be left CDI until follow-up. Maintain strict nonweightbearing to right lower extremity. Crutches, walker, knee scooter for assistance. Diet: advance to your usual diet Print Language: Faroese Activity Restrictions/Additional Instructions: Please leave dressing to right lower extremity clean dry and intact. Do not attempt to remove the dressing or get it wet. Please maintain nonweightbearing to right foot. Please use crutches walker or knee scooter for assistance. Please take medications as prescribed. Please rest, ice behind the right knee, elevate the right foot above the level of your chest to assist with pain or swelling. Please follow-up with Dr. Felix's office in 1 week. Please call the office to confirm appointment and/or with any questions/concerns. Follow Up Appointments: June 05 @ 2pm with Dr. Felix's office [phone]
[2024-05-29] MEDS: Fluticasone-Umeclidin-Vilanter [Trelegy Ellipta] 100-62.5-25 mcg 1 EACH IH (09:11)
[2024-05-29 09:12] VITALS: PULSE 71; O2SAT 96
[2024-05-29 09:13] VITALS: O2SAT 96
--- NOTE | 2024-05-29 09:13 | P.PN_ITS ---
Progress Note: Subjective Subjective Interval history: Seen at bedside this a.m. resting comfortably. POD #2 s/p Right incision of calcaneal bone with removal of retained hardware and peroneal tenolysis, DOS 05/27/2024. Admits to significant rebound pain overnight. States is mild pain this a.m controlled with p.o oxycodone and was sleeping soundly when I entered the room.. She denies any other acute lower extremity complaints today. Denies any constitutional symptoms at time of visit. Exam Narrative Exam Narrative: RLE dressing left CDI. CFT intact to digits. Skin temperature warm and symmetric proximal distal dressing with no proximal streaking. No erythema or edema proximal to dressing. Light touch and gross sensation to digits is present. Active range of motion of digits is present. Compartments soft and compressible, no pain with calf or thigh compression. Constitutional Vital Signs, click to edit/add: Last Vital Signs Temp 98.0 F 05/29/24 07:19 Pulse 71 05/29/24 09:12 Resp 16 05/29/24 04:00 BP 119/74 05/29/24 07:19 Pulse Ox 96 05/29/24 09:12 O2 Del Method Room Air 05/29/24 09:12 Progress Note: Objective Labs Labs: Short CBC 05/29/24 Range/Units 05:53 WBC 7.1 (4.0-11.0) 10^3/uL Hgb 10.9 L (12.0-16.0) g/dL Hct 35.3 L (36.0-48.0) % Plt Count 260 (150-450) 10^3/uL BMP 05/29/24 05:53 Sodium 144 Potassium 3.7 Chloride 108 H Carbon Dioxide 27.1 BUN 12.0 Creatinine 0.82 Glucose 108 H Calcium 8.0 L Liver Function 05/29/24 Range/Units 05:53 Total Bilirubin 0.2 (0.2-1.0) mg/dL AST 17 (15-37) U/L ALT 25 (14-59) U/L Alkaline Phosphatase 79 (46-116) U/L Albumin 2.6 L (3.4-5.0) g/dL Progress Note: A&P Assessment and Plan (1) Post-operative pain: (2) Pain in right ankle and joints of right foot: (3) Primary osteoarthritis, right ankle and foot: (4) Posterior tibial tendon dysfunction (PTTD) of right lower extremity: (5) Bipolar disorder: Qualifiers: Active/Remission status: remission status unspecified Qualified Code(s): F31.9 - Bipolar disorder, unspecified (6) Panic attacks: (7) GERD (gastroesophageal reflux disease): Qualifiers: Esophagitis presence: esophagitis presence not specified Qualified Code(s): K21.9 - Gastro-esophageal reflux disease without esophagitis (8) Asthma: Qualifiers: Asthma severity: unspecified severity Asthma persistence: unspecified Asthma complication type: unspecified Qualified Code(s): J45.909 - Unspecified asthma, uncomplicated (9) High cholesterol: (10) Hypertension: Qualifiers: Hypertension type: primary hypertension Qualified Code(s): I10 - Essential (primary) hypertension Plan Patient examined evaluated. All findings discussed with patient and all questions answered to patient's satisfaction. Pertinent labs and imaging reviewed. RLE dressing to be left CDI until follow-up. Maintain strict nonweightbearing to right lower extremity. Crutches walker knee scooter for assistance. PT on board. Continue multimodal pain regimen, increased home-going dose of [place] to 7.5, will renew order for Toradol 15 mg IV every 4 as needed May be amenable to discharge today granted pain control with oral medications Postop prescriptions sent to patient's pharmacy on file. Rest per primary, please call with questions or concerns.
[2024-05-29] MEDS: KETOROLAC TROMETHAMINE 30 MG/ML VIAL 15 MG IVP (09:49)
--- NOTE | 2024-05-29 11:18 | CM.NOTE ---
Rounds made with Dr. Arnold. Plan for discharge today. Ms. Leal in agreement.
[2024-05-29] MEDS: OXYCODONE HCL 5 MG TABLET 10 MG PO (11:24)
[2024-05-29 11:34] VITALS: BP 101/69; PULSE 59; TEMP 36.4; O2SAT 95
--- NOTE | 2024-06-03 13:53 | CM.DCFOLLOWU ---
Person spoke with: patient How are you feeling? well How is your pain? controlled Did you understand your discharge instructions? yes Do you have any questions about your discharge instructions? no Were you given any prescriptions at discharge? yes Were you able to get your prescriptions filled? yes Do you understand how to take your medications as ordered? yes Do you have any questions about your follow up appointment and do you plan to keep your follow up appointment? no questions, follow up is 06/05/[address] Felix Is there anything else that you would like to discuss? no Questions/Comments/Concerns/Other:none
== END 2024-05-29 13:17 | disposition home or self-care (01) ==
LOC: SURGOUT 10:41 → MS 10:41
PROVIDERS: Anesthesiology; Admitting Provider Family Medicine; PCP Family Medicine; Visit Provider Podiatrist Foot & Ankle Surgery
PROC: (CPT 1470; principal; 2024-05-27 11:30)
DX: M76.71 Peroneal tendinitis, right leg (principal); T84.84XA Pain due to internal orthopedic prosthetic devices, implants and grafts, initial encounter; M19.071 Primary osteoarthritis, right ankle and foot; M25.571 Pain in right ankle and joints of right foot; S86.311A Strain of muscle(s) and tendon(s) of peroneal muscle group at lower leg level, right leg, initial encounter; G25.81 Restless legs syndrome; F31.9 Bipolar disorder, unspecified; I10 Essential (primary) hypertension; K21.9 Gastro-esophageal reflux disease without esophagitis; J45.909 Unspecified asthma, uncomplicated; F41.9 Anxiety disorder, unspecified; F41.0 Panic disorder [episodic paroxysmal anxiety]; E78.00 Pure hypercholesterolemia, unspecified; X58.XXXA Exposure to other specified factors, initial encounter
CPT/HCPCS: 20680; 27680; 36415; 64445; 73630; 76000; 80053; 82948; 85025; 94640; 96365; 96366; 96372; 96375; C1713; G0378; J0131; J0690; J1100; J1170; J1650; J1885; J2250; J2371; J2405; J2795

== ENCOUNTER 2024-06-06 08:48 | Outpatient (OUT) | payer MEDICARE, MEDICAID, SELFPAY ==
--- NOTE | 2024-06-06 08:51 | P.CN_ITS ---
Consult Note: HPI Data of Consult Patient: known to practice within the last 3 years Consult date: 03/04/24 Requesting Physician: Monica Burns NP Primary Care Provider: Isatu CASTRO Consult Narrative Reason for consult: neck back pain Narrative: 53yof who presents for assessment of chronic neck, mid back, and low back pain. continues in series of provider directed home exercises >6 weeks, with minimal benefit. uses celebrex, with limited benefit. denies adverse med side effects. Recent right and left C2-3 C3-4 RFA providing 75% improvement ongoing. Moderate relief from recent TPIs with Dr Ahumada. Patient would like to discuss workup for chronic low back pain without numbness tingling weakness of legs. Hx of mild facet arthropathy and degenerative changes on lumbar xray. cc:: CC: Monica Burns NP Review of Systems ROS Status of ROS 10 or more systems reviewed and unremark able except as noted in history and below Musculoskeletal Reports: back pain and neck pain PFSH PFS Medical History (Updated 06/02/24 @ 00:00 by ) Strain of muscle(s) and tendon(s) of peroneal muscle group at lower leg level, right leg, initial encounter ?S86.311A - Strain of muscle(s) and tendon(s) of peroneal muscle group at lower leg level, right leg, initial encounter (ICD-10) Pain in right ankle and joints of right foot ?M25.571 - Pain in right ankle and joints of right foot (ICD-10) Primary osteoarthritis, right ankle and foot ?M19.071 - Primary osteoarthritis, right ankle and foot (ICD-10) Overactive bladder ?N32.81 - Overactive bladder (ICD-10) Insomnia ?G47.00 - Insomnia, unspecified (ICD-10) Bipolar disorder ?F31.9 - Bipolar disorder, unspecified (ICD-10) Gastroparesis ?K31.84 - Gastroparesis (ICD-10) Panic attacks ?F41.0 - Panic disorder [episodic paroxysmal anxiety] (ICD-10) OCD (obsessive compulsive disorder) ?F42.9 - Obsessive-compulsive disorder, unspecified (ICD-10) COVID-19 ?U07.1 - COVID-19 (ICD-10) Migraine ?G43.909 - Migraine, unspecified, not intractable, without status migrainosus (ICD-10) Gastritis ?K29.70 - Gastritis, unspecified, without bleeding (ICD-10) GERD (gastroesophageal reflux disease) ?K21.9 - Gastro-esophageal reflux disease without esophagitis (ICD-10) Peroneal tendinitis ?M76.70 - Peroneal tendinitis, unspecified leg (ICD-10) Posterior tibial tendon dysfunction ?M76.829 - Posterior tibial tendinitis, unspecified leg (ICD-10) Painful orthopaedic hardware ?T84.84XA - Pain due to internal orthopedic prosthetic devices, implants and grafts, initial encounter (ICD-10) Post op infection ?T81.40XA - Infection following a procedure, unspecified, initial encounter (ICD-10) Restless leg syndrome ?G25.81 - Restless legs syndrome (ICD-10) Tibialis anterior tendon tear, traumatic ?S86.219A - Strain of muscle(s) and tendon(s) of anterior muscle group at lower leg level, unspecified leg, initial encounter (ICD-10) Osteoarthritis ?M19.90 - Unspecified osteoarthritis, unspecified site (ICD-10) Back pain ?M54.9 - Dorsalgia, unspecified (ICD-10) Sleep disorder ?G47.9 - Sleep disorder, unspecified (ICD-10) PTSD (post-traumatic stress disorder) ?F43.10 - Post-traumatic stress disorder, unspecified (ICD-10) Depression ?F32.A - Depression, unspecified (ICD-10) Anxiety ?F41.9 - Anxiety disorder, unspecified (ICD-10) Sleep apnea ?G47.30 - Sleep apnea, unspecified (ICD-10) Asthma ?J45.909 - Unspecified asthma, uncomplicated (ICD-10) Constipation ?K59.00 - Constipation, unspecified (ICD-10) High cholesterol ?E78.00 - Pure hypercholesterolemia, unspecified (ICD-10) Hypertension ?I10 - Essential (primary) hypertension (ICD-10) Female rectocele with enterocele ?N81.6 - Rectocele (ICD-10) ?K46.9 - Unspecified abdominal hernia without obstruction or gangrene (ICD- 10) 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 - Other specified functional intestinal disorders (ICD-10) Surgical History S/P placement of nerve stimulator (01/02/24) ?Z96.82 - Presence of neurostimulator (ICD-10) S/P placement of nerve stimulator ?Z96.82 - Presence of neurostimulator (ICD-10) History of ankle surgery (11/13/23) ?Z98.890 - Other specified postprocedural states (ICD-10) H/O tooth extraction ?K08.409 - Partial loss of teeth, unspecified cause, unspecified class (ICD- 10) H/O foot surgery (05/12/23) ?Z98.890 - Other specified postprocedural states (ICD-10) History of appendectomy (1987) ?Z90.49 - Acquired absence of other specified parts of digestive tract (ICD- 10) History of colonoscopy ?Z98.890 - Other specified postprocedural states (ICD-10) History of colectomy (03/2022) ?Z90.49 - Acquired absence of other specified parts of digestive tract (ICD- 10) History of tonsillectomy and adenoidectomy ?Z90.89 - Acquired absence of other organs (ICD-10) History of hysterectomy (2014) ?Z90.710 - Acquired absence of both cervix and uterus (ICD-10) History of arthroplasty of right ankle ?Z98.890 - Other specified postprocedural states (ICD-10) History of repair of rotator cuff ?Z98.890 - Other specified postprocedural states (ICD-10) S/P ankle ligament repair (2020) ?Z98.890 - Other specified postprocedural states (ICD-10) Family History Other Family history of Alzheimer's disease Family history of coronary artery disease Family history of heart disease Family history of hypertension Social History Within the past year, how often did you have a drink containing alcohol: never Score interpretation: A score less than 3 is consistent with normal alcohol consumption. Smoking status: Never smoker Non-prescribed substance use: denies use Previous occupational history: [employer] Highest level of school completed/degree received: some college, no degree Little interest or pleasure in doing things: not at all Feeling down, depressed, or hopeless: not at all Feel stressed/tense/nervous/anxious/difficulty sleeping: only a little Due to disability, difficulty making decisions: No Do you think of yourself as: straight/heterosexual Gender Identity: female Meds Home Medications and Allergies Home Medications ?Medication ?Instructions ?Recorded ?Confirmed ?Type fremanezumab-vfrm 225 mg/1.5 mL 125 mg subcut .s99ewvl 05/04/23 05/27/24 History subcutaneous auto-injector (Ajovy) ropinirole 1 mg tablet 1 mg PO QAM 05/04/23 05/27/24 History ropinirole 2 mg tablet 2 mg PO QPM 05/04/23 05/27/24 History fluticasone fur. 100 mcg-umeclid 1 inh inhalation Q24H 11/03/23 05/27/24 History 62.5 mcg-vilant 25 mcg inhalat.powder (Trelegy Ellipta) hydrocodone 5 mg-acetaminophen 325 1 tab PO Q6H PRN pain #12 tabs 04/21/24 05/27/24 Rx mg tablet albuterol sulfate 90 mcg/actuation 2 inh inhalation Q6H PRN shortness 05/17/24 05/27/24 History aerosol inhaler of breath or wheezing aripiprazole 300 mg suspension, 300 mg IM Q28D 05/17/24 05/27/24 History extended rel. intramuscular syringe (Lolis Rush) atenolol 50 mg tablet 50 mg PO Q24H 05/17/24 05/27/24 History cetirizine 10 mg tablet 10 mg PO DAILY 05/17/24 05/27/24 History cholecalciferol (vitamin D3) 125 5,000 unit PO DAILY 05/17/24 05/27/24 History mcg (5,000 unit) tablet daridorexant 50 mg tablet (Quviviq) 50 mg PO QPM 05/17/24 05/27/24 History ferrous sulfate 325 mg (65 mg 325 mg PO DAILY 05/17/24 05/27/24 History iron) tablet lisdexamfetamine 70 mg capsule 70 mg PO DAILY 05/17/24 05/27/24 History (Vyvanse) losartan 25 mg tablet 25 mg PO DAILY 05/17/24 05/27/24 History omeprazole 40 mg capsule,delayed 40 mg PO DAILY 05/17/24 05/27/24 History release cefadroxil 500 mg capsule 500 mg PO BID 7 days #14 caps 05/27/24 Rx cholecalciferol (vitamin D3) 125 125 mcg PO DAILY 90 days #90 caps 05/27/24 Rx mcg (5,000 unit) capsule ondansetron 4 mg disintegrating 4 mg PO Q8H PRN nausea and 05/27/24 Rx tablet vomiting 5 days #15 tabs sennosides 8.6 mg tablet (Senna 8.6 mg PO DAILY PRN constipation 7 05/27/24 Rx Laxative) days #7 tabs tizanidine 2 mg tablet 2 mg PO TID PRN muscle spasticity 05/27/24 Rx 7 days #21 tabs hydrocodone 7.5 mg-acetaminophen 1 tab PO Q6H PRN pain 7 days #28 05/28/24 Rx 325 mg tablet tabs enoxaparin 40 mg/0.4 mL 40 mg (0.4 mL) subcut Q24H 30 days 05/29/24 Rx subcutaneous syringe (Lovenox) #12 mL Allergies Allergy/AdvReac Type Severity Reaction Status Date / Time risperidone [From Risperdal] AdvReac Mild breast Verified 05/17/24 12:55 nipples leak Exam Constitutional Documenting provider has reviewed patient's vital signs: yes Common normals: no apparent distress, oriented x3, healthy appearing, alert and well nourished General appearance: cooperative [facility] Common normals: normocephalic, hearing grossly normal bilaterally and moist oral mucous membranes Head and scalp: normocephalic Eye Common normals: PERRL Pupil: PERRL Neck & C-Spine Common normals: full ROM General: normal visual inspection Cervical spine: cervical ROM normal and paracervical muscle tenderness Chest Common normals: inspection of chest normal Respiratory Common normals: normal respiratory effort, no retractions and no use of accessory muscles Back & Pelvis Lumbar spine/lower back: ROM limited, pain with ROM and straight leg raise negative bilaterally Sacroiliac joints: SI joint(s) abnormal (tenderness over bilateral PSIS) Other: bilateral facet loading positive tenderness over bilateral L4-S1 facets strength 5/5 in BLE sensation intact BLE Extremity Common normals: normal to inspection and full ROM Other: cast present to left foot, nonweight bearing Neuro Common normals: oriented x3, CN's II-XII intact bilaterally, moves all extremities, no focal motor deficits, no sensory deficits noted and deep tendon reflexes 2+ bilaterally Sensorium/orientation: alert Gait (neuro): assistive device used orthotic device Motor exam: strength 5/5 throughout and no movement abnormalities noted Psych Common normals: mental status grossly normal, thought process normal, cooperative, affect normal, speech normal and activity/motor behavior normal Speech: normal speech Thought process: normal thought process Results Additional Findings Additional findings: If on a controlled substance or opioids, I have checked an [place] report on this patient and there are no aberrancies noted in the prescribing history.??If on a controlled substance or opioid a drug screen was completed and reviewed within the last year, and if there has not been a drug screen completed we ordered one today to monitor higher risk, state monitored pain medication use. As part of providing excellent, safe, comprehensive care, the following was completed at our patient's visit: 1. A medication reconciliation and review to ensure accurate knowledge of current/active medications, including asking our patients to inform us about any [id number] medications or herbal remedies/nutritional supplements/alternative remedies. 2. A review to specifically ensure our patients have had annual screening for screening for depression, screening for tobacco use, and screening for unhealthy alcohol use. For concerning screenings had a discussion with the patient, provided patient education, and recommended follow-up with primary care provider when appropriate. If patient noted with a risk of falling, they received education on strength, gait, and balance training to prevent future risk of falling. Assessment and Plan Assessment and Plan (1) Lumbar spondylosis: Assessment and Plan: The patient has had over 3 months of moderate to severe low back pain with functional impairment and inadequate response to conservative care including NSAIDS (unless there are contraindication such as concurrent blood thinners), multiple oral or topical pain medications, and home exercise program/physical therapy.? Patient has completed >6 weeks of guided home exercise program and/or formal physical therapy program without relief of their symptoms.? I have reviewed the imaging of the lumbar spine and no red flags were identified.? We discussed the risks and benefits of the procedure with the patient, and we are NOT planning on using sedation as outlined in the guidelines from Medicare unless there is a documented reason that sedation would be strongly recommended.?? The procedure will be completed with fluoroscopic guidance.? (2) Cervical spondylosis: Assessment and Plan: >75% improvement ongoing from left and right C2-3 C3-4 facet RFAs (3) Myofascial pain: (4) Thoracic back pain: Assessment and Plan: improved from TPI series Plan bilateral L4-5 L5-S1 MBB x2 working towards Lumbar RFA under fluoroscopy continue HEP as tolerated continue medications through PCP continue f/u with podiatry f/u after each injection
== END 2024-06-06 08:49 | disposition home or self-care (01) ==
PROVIDERS: PCP Family Medicine; Visit Provider Nurse Practitioner
DX: M47.816 Spondylosis without myelopathy or radiculopathy, lumbar region (principal); M47.812 Spondylosis without myelopathy or radiculopathy, cervical region; M54.50 Low back pain, unspecified
CPT/HCPCS: G0463

== ENCOUNTER 2024-06-17 09:22 | Day surgery (SDC) | payer MEDICARE, MEDICAID, SELFPAY ==
[2024-06-17 09:51] VITALS: BP 118/79; PULSE 77; TEMP 36.7; O2SAT 100
[2024-06-17] MEDS: LIDOCAINE HCL 2% 400 MG/20 ML MDV 15 ML INJ (10:23)
[2024-06-17] MEDS: BUPIVACAINE HCL 0.25% PF 25 MG/10 ML VIAL INJ (10:23)
[2024-06-17 10:24] VITALS: BP 115/73; BP 116/75; PULSE 77; PULSE 78; O2SAT 95; O2SAT 96
--- NOTE | 2024-06-17 10:25 | W.PM.PROCNOT ---
Date of procedure: 06/17/24 Pre-op diagnosis: Pain due to lumbar spondylosis without myelopathy Post-op diagnosis: same as pre-op Procedure: Procedure: Bilateral L4-5, l5-S1 medial branch block Medications: Bupivacaine 0.25% 6cc The patient was seen and examined in the preoperative holding area.? An informed consent was obtained and placed on the chart.? The patient was brought to the medical procedure unit and placed in the prone position.? A timeout was completed verifying correct patient, procedure site, positioning, plan, and special equipment.? Using aseptic technique, the needle was placed at left L4. Under direct fluoroscopic visualization a Quincke-tipped spinal needle was advanced to the junction of the superior articulating process with the transverse process at the designated medial branch segment.? Preceded by negative aspiration, the above-mentioned injectate was placed in 1 mL aliquots.? The procedure was repeated at left L5, S1.? The needle was removed and insertion site was covered. The same procedure, at the same levels, was completed on the right side. The patient was taken to the postprocedural recovery area and monitored for an appropriate length of time before found suitable for discharge in the company of a responsible adult. Anesthesia: Local Surgeon: Ace Ahumada Pathology: none sent Condition: stable Disposition: no change
== END 2024-06-17 10:30 | disposition home or self-care (01) ==
LOC: SURGOUT 09:23
PROVIDERS: PCP Family Medicine; Visit Provider Anesthesiology
DX: M47.816 Spondylosis without myelopathy or radiculopathy, lumbar region (principal)
CPT/HCPCS: 64493; 64494; J0665

== ENCOUNTER 2024-06-19 13:24 | Outpatient (OUT) | payer MEDICARE, MEDICAID, SELFPAY ==
--- NOTE | 2024-06-19 | XR_ITS ---
The [address] [address] Patient Name: ELSIE FUENTES MRN: [id number] date: 1970 Sex: F Assigned Patient Location: Current Patient Location: [facility] Accession/Order Number: [id number] Exam Date: 06/19/2024 13:30 Report Date: 06/22/2024 12:28 At the request of: SADE WILDE Procedure: XR foot RT min 3V PROCEDURE: XR foot RT min 3V COMPARISON: 05/27/2024 HISTORY: RIGHT FOOT PAIN FINDINGS: BONES:Stable postsurgical changes with anterior and posterior calcaneal osteotomy. Talonavicular and subtalar fusion. Transverse osteotomy with wedged spacer medial cuneiform. Remote osteotomy and screw placement at of the first metatarsal. SOFT TISSUES:Negative. No visible soft tissue swelling. EFFUSION:None visible. OTHER: Negative. XR/XR foot RT min 3V IMPRESSION: Stable postsurgical changes Electronically authenticated by: NICKI DACOSTA Date: 06/22/2024 12:28
== END 2024-06-19 13:25 | disposition home or self-care (01) ==
LOC: EC 13:25
PROVIDERS: PCP Family Medicine; Visit Provider Podiatrist Foot & Ankle Surgery
DX: M19.071 Primary osteoarthritis, right ankle and foot (principal); Z98.890 Other specified postprocedural states
CPT/HCPCS: 73630

== ENCOUNTER 2024-06-20 15:30 | Outpatient (OUT) | payer MEDICARE, MEDICAID, SELFPAY ==
--- NOTE | 2024-06-20 15:36 | P.CN_ITS ---
Consult Note: HPI Data of Consult Patient: known to practice within the last 3 years Consult date: 03/04/24 Requesting Physician: Monica Burns NP Primary Care Provider: Isatu CASTRO Consult Narrative Reason for consult: neck back pain Narrative: 53yof who presents for assessment of chronic neck, mid back, and low back pain. continues in series of provider directed home exercises >6 weeks, with minimal benefit. uses celebrex, with limited benefit. denies adverse med side effects. chronic low back pain without numbness tingling weakness of legs. Hx of mild facet arthropathy and degenerative changes on lumbar xray. Recently underwent bilateral L4-5 L5-S1 MBB #1 with >85% improvement immediate relief and greater than 12 hours after the procedure. cc:: CC: Monica Burns NP Review of Systems ROS Status of ROS 10 or more systems reviewed and unremark able except as noted in history and below Musculoskeletal Reports: back pain and neck pain PFSH PFSH Medical History (Updated 06/02/24 @ 00:00 by ) Strain of muscle(s) and tendon(s) of peroneal muscle group at lower leg level, right leg, initial encounter ?S86.311A - Strain of muscle(s) and tendon(s) of peroneal muscle group at lower leg level, right leg, initial encounter (ICD-10) Pain in right ankle and joints of right foot ?M25.571 - Pain in right ankle and joints of right foot (ICD-10) Primary osteoarthritis, right ankle and foot ?M19.071 - Primary osteoarthritis, right ankle and foot (ICD-10) Overactive bladder ?N32.81 - Overactive bladder (ICD-10) Insomnia ?G47.00 - Insomnia, unspecified (ICD-10) Bipolar disorder ?F31.9 - Bipolar disorder, unspecified (ICD-10) Gastroparesis ?K31.84 - Gastroparesis (ICD-10) Panic attacks ?F41.0 - Panic disorder [episodic paroxysmal anxiety] (ICD-10) OCD (obsessive compulsive disorder) ?F42.9 - Obsessive-compulsive disorder, unspecified (ICD-10) COVID-19 ?U07.1 - COVID-19 (ICD-10) Migraine ?G43.909 - Migraine, unspecified, not intractable, without status migrainosus (ICD-10) Gastritis ?K29.70 - Gastritis, unspecified, without bleeding (ICD-10) GERD (gastroesophageal reflux disease) ?K21.9 - Gastro-esophageal reflux disease without esophagitis (ICD-10) Peroneal tendinitis ?M76.70 - Peroneal tendinitis, unspecified leg (ICD-10) Posterior tibial tendon dysfunction ?M76.829 - Posterior tibial tendinitis, unspecified leg (ICD-10) Painful orthopaedic hardware ?T84.84XA - Pain due to internal orthopedic prosthetic devices, implants and grafts, initial encounter (ICD-10) Post op infection ?T81.40XA - Infection following a procedure, unspecified, initial encounter (ICD-10) Restless leg syndrome ?G25.81 - Restless legs syndrome (ICD-10) Tibialis anterior tendon tear, traumatic ?S86.219A - Strain of muscle(s) and tendon(s) of anterior muscle group at lower leg level, unspecified leg, initial encounter (ICD-10) Osteoarthritis ?M19.90 - Unspecified osteoarthritis, unspecified site (ICD-10) Back pain ?M54.9 - Dorsalgia, unspecified (ICD-10) Sleep disorder ?G47.9 - Sleep disorder, unspecified (ICD-10) PTSD (post-traumatic stress disorder) ?F43.10 - Post-traumatic stress disorder, unspecified (ICD-10) Depression ?F32.A - Depression, unspecified (ICD-10) Anxiety ?F41.9 - Anxiety disorder, unspecified (ICD-10) Sleep apnea ?G47.30 - Sleep apnea, unspecified (ICD-10) Asthma ?J45.909 - Unspecified asthma, uncomplicated (ICD-10) Constipation ?K59.00 - Constipation, unspecified (ICD-10) High cholesterol ?E78.00 - Pure hypercholesterolemia, unspecified (ICD-10) Hypertension ?I10 - Essential (primary) hypertension (ICD-10) Female rectocele with enterocele ?N81.6 - Rectocele (ICD-10) ?K46.9 - Unspecified abdominal hernia without obstruction or gangrene (ICD- 10) 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 - Other specified functional intestinal disorders (ICD-10) Surgical History S/P foot surgery ?Z98.890 - Other specified postprocedural states (ICD-10) H/O cervical spine surgery ?Z98.890 - Other specified postprocedural states (ICD-10) S/P placement of nerve stimulator (01/02/24) ?Z96.82 - Presence of neurostimulator (ICD-10) S/P placement of nerve stimulator ?Z96.82 - Presence of neurostimulator (ICD-10) History of ankle surgery (11/13/23) ?Z98.890 - Other specified postprocedural states (ICD-10) H/O tooth extraction ?K08.409 - Partial loss of teeth, unspecified cause, unspecified class (ICD- 10) H/O foot surgery (05/12/23) ?Z98.890 - Other specified postprocedural states (ICD-10) History of appendectomy (1987) ?Z90.49 - Acquired absence of other specified parts of digestive tract (ICD- 10) History of colonoscopy ?Z98.890 - Other specified postprocedural states (ICD-10) History of colectomy (03/2022) ?Z90.49 - Acquired absence of other specified parts of digestive tract (ICD- 10) History of tonsillectomy and adenoidectomy ?Z90.89 - Acquired absence of other organs (ICD-10) History of hysterectomy (2014) ?Z90.710 - Acquired absence of both cervix and uterus (ICD-10) History of arthroplasty of right ankle ?Z98.890 - Other specified postprocedural states (ICD-10) History of repair of rotator cuff ?Z98.890 - Other specified postprocedural states (ICD-10) S/P ankle ligament repair (2020) ?Z98.890 - Other specified postprocedural states (ICD-10) Family History Other Family history of Alzheimer's disease Family history of coronary artery disease Family history of heart disease Family history of hypertension Social History Within the past year, how often did you have a drink containing alcohol: never Score interpretation: A score less than 3 is consistent with normal alcohol consumption. Smoking status: Never smoker Non-prescribed substance use: denies use Previous occupational history: [employer] Highest level of school completed/degree received: some college, no degree Little interest or pleasure in doing things: not at all Feeling down, depressed, or hopeless: not at all Feel stressed/tense/nervous/anxious/difficulty sleeping: only a little Due to disability, difficulty making decisions: No Do you think of yourself as: straight/heterosexual Gender Identity: female Meds Home Medications and Allergies Home Medications ?Medication ?Instructions ?Recorded ?Confirmed ?Type fremanezumab-vfrm 225 mg/1.5 mL 125 mg subcut .[id number] 05/04/23 06/17/24 History subcutaneous auto-injector (Ajovy) ropinirole 1 mg tablet 1 mg PO QAM 05/04/23 06/17/24 History ropinirole 2 mg tablet 2 mg PO QPM 05/04/23 06/17/24 History fluticasone fur. 100 mcg-umeclid 1 inh inhalation Q24H 11/03/23 06/17/24 History 62.5 mcg-vilant 25 mcg inhalat.powder (Trelegy Ellipta) hydrocodone 5 mg-acetaminophen 325 1 tab PO Q6H PRN pain #12 tabs 04/21/24 06/17/24 Rx mg tablet albuterol sulfate 90 mcg/actuation 2 inh inhalation Q6H PRN shortness 05/17/24 06/17/24 History aerosol inhaler of breath or wheezing aripiprazole 300 mg suspension, 300 mg IM Q28D 05/17/24 06/17/24 History extended rel. intramuscular syringe (Lolis Rush) atenolol 50 mg tablet 50 mg PO Q24H 05/17/24 06/17/24 History cetirizine 10 mg tablet 10 mg PO DAILY 05/17/24 06/17/24 History cholecalciferol (vitamin D3) 125 5,000 unit PO DAILY 05/17/24 05/27/24 History mcg (5,000 unit) tablet daridorexant 50 mg tablet (Quviviq) 50 mg PO QPM 05/17/24 06/17/24 History ferrous sulfate 325 mg (65 mg 325 mg PO DAILY 05/17/24 06/17/24 History iron) tablet lisdexamfetamine 70 mg capsule 70 mg PO DAILY 05/17/24 06/17/24 History (Lynn) losartan 25 mg tablet 25 mg PO DAILY 05/17/24 06/17/24 History omeprazole 40 mg capsule,delayed 40 mg PO DAILY 05/17/24 06/17/24 History release cholecalciferol (vitamin D3) 125 125 mcg PO DAILY 90 days #90 caps 05/27/24 06/17/24 Rx mcg (5,000 unit) capsule ondansetron 4 mg disintegrating 4 mg PO Q8H PRN nausea and 05/27/24 Rx tablet vomiting 5 days #15 tabs sennosides 8.6 mg tablet (Senna 8.6 mg PO DAILY PRN constipation 7 05/27/24 06/17/24 Rx Laxative) days #7 tabs tizanidine 2 mg tablet 2 mg PO TID PRN muscle spasticity 05/27/24 06/17/24 Rx 7 days #21 tabs hydrocodone 7.5 mg-acetaminophen 1 tab PO Q6H PRN pain 7 days #28 05/28/24 Rx 325 mg tablet tabs enoxaparin 40 mg/0.4 mL 40 mg (0.4 mL) subcut Q24H 30 days 05/29/24 06/17/24 Rx subcutaneous syringe (Lovenox) #12 mL Allergies Allergy/AdvReac Type Severity Reaction Status Date / Time risperidone [From Risperdal] AdvReac Mild breast Verified 06/17/24 09:52 nipples leak Exam Constitutional Documenting provider has reviewed patient's vital signs: yes Common normals: no apparent distress, oriented x3, healthy appearing, alert and well nourished General appearance: cooperative HENMT Common normals: normocephalic, hearing grossly normal bilaterally and moist oral mucous membranes Head and scalp: normocephalic Eye Common normals: PERRL Pupil: PERRL Neck & C-Spine Common normals: full ROM General: normal visual inspection Cervical spine: cervical ROM normal and paracervical muscle tenderness Chest Common normals: inspection of chest normal Respiratory Common normals: normal respiratory effort, no retractions and no use of accessory muscles Back & Pelvis Lumbar spine/lower back: ROM limited, pain with ROM and straight leg raise negative bilaterally Sacroiliac joints: SI joint(s) abnormal (tenderness over bilateral PSIS) Other: bilateral facet loading positive tenderness over bilateral L4-S1 facets strength 5/5 in BLE sensation intact BLE Extremity Common normals: normal to inspection and full ROM Other: cast present to left foot, nonweight bearing Neuro Common normals: oriented x3, CN's II-XII intact bilaterally, moves all extremities, no focal motor deficits, no sensory deficits noted and deep tendon reflexes 2+ bilaterally Sensorium/orientation: alert Gait (neuro): assistive device used orthotic device Motor exam: strength 5/5 throughout and no movement abnormalities noted Psych Common normals: mental status grossly normal, thought process normal, cooperative, affect normal, speech normal and activity/motor behavior normal Speech: normal speech Thought process: normal thought process Results Additional Findings Additional findings: If on a controlled substance or opioids, I have checked an [place] report on this patient and there are no aberrancies noted in the prescribing history.??If on a controlled substance or opioid a drug screen was completed and reviewed within the last year, and if there has not been a drug screen completed we ordered one today to monitor higher risk, state monitored pain medication use. As part of providing excellent, safe, comprehensive care, the following was completed at our patient's visit: 1. A medication reconciliation and review to ensure accurate knowledge of current/active medications, including asking our patients to inform us about any [id number] medications or herbal remedies/nutritional supplements/alternative remedies. 2. A review to specifically ensure our patients have had annual screening for screening for depression, screening for tobacco use, and screening for unhealthy alcohol use. For concerning screenings had a discussion with the patient, provided patient education, and recommended follow-up with primary care provider when appropriate. If patient noted with a risk of falling, they received education on strength, gait, and balance training to prevent future risk of falling. Assessment and Plan Assessment and Plan (1) Lumbar spondylosis: Assessment and Plan: The patient has had over 3 months of moderate to severe low back pain with functional impairment and inadequate response to conservative care including NSAIDS (unless there are contraindication such as concurrent blood thinners), multiple oral or topical pain medications, and home exercise program/physical therapy.? Patient has completed >6 weeks of guided home exercise program and/or formal physical therapy program without relief of their symptoms.? I have reviewed the imaging of the lumbar spine and no red flags were identified.? We discussed the risks and benefits of the procedure with the patient, and we are NOT planning on using sedation as outlined in the guidelines from Medicare unless there is a documented reason that sedation would be strongly recommended.?? The procedure will be completed with fluoroscopic guidance.? (2) Cervical spondylosis: Assessment and Plan: >75% improvement ongoing from left and right C2-3 C3-4 facet RFAs (3) Myofascial pain: Plan bilateral L4-5 L5-S1 MBB x2 working towards Lumbar RFA under fluoroscopy continue HEP as tolerated continue medications through PCP continue f/u with podiatry f/u after each injection
== END 2024-06-20 15:31 | disposition home or self-care (01) ==
LOC: PM 15:31
PROVIDERS: PCP Family Medicine; Visit Provider Nurse Practitioner
DX: M47.816 Spondylosis without myelopathy or radiculopathy, lumbar region (principal); M47.812 Spondylosis without myelopathy or radiculopathy, cervical region; M79.18 Myalgia, other site
CPT/HCPCS: G0463

== ENCOUNTER 2024-07-01 08:20 | Day surgery (SDC) | payer MEDICARE, MEDICAID, SELFPAY ==
[2024-07-01 09:20] VITALS: BP 109/77; PULSE 76; TEMP 36.6; O2SAT 100
[2024-07-01 09:38] VITALS: BP 110/71; PULSE 75; O2SAT 100
[2024-07-01 09:39] VITALS: BP 106/72; PULSE 75; O2SAT 100
[2024-07-01] MEDS: BUPIVACAINE HCL 0.25% PF 25 MG/10 ML VIAL INJ (09:39)
[2024-07-01] MEDS: LIDOCAINE HCL 2% 400 MG/20 ML MDV 15 ML INJ (09:40)
--- NOTE | 2024-07-01 09:41 | W.PM.PROCNOT ---
Date of procedure: 07/01/24 Pre-op diagnosis: Pain due to lumbar spondylosis without myelopathy Post-op diagnosis: same as pre-op Procedure: Procedure: Bilateral L4-5, L5-s1 medial branch block Medications: Bupivacaine 0.25% 6cc The patient was seen and examined in the preoperative holding area.? An informed consent was obtained and placed on the chart.? The patient was brought to the medical procedure unit and placed in the prone position.? A timeout was completed verifying correct patient, procedure site, positioning, plan, and special equipment.? Using aseptic technique, the needle was placed at left L4. Under direct fluoroscopic visualization a Quincke-tipped spinal needle was advanced to the junction of the superior articulating process with the transverse process at the designated medial branch segment.? Preceded by negative aspiration, the above-mentioned injectate was placed in 1 mL aliquots.? The procedure was repeated at left L5, S1.? The needle was removed and insertion site was covered. The same procedure, at the same levels, was completed on the right side. The patient was taken to the postprocedural recovery area and monitored for an appropriate length of time before found suitable for discharge in the company of a responsible adult. Anesthesia: Local Surgeon: Ace Ahumada Pathology: none sent Condition: stable Disposition: no change
== END 2024-07-01 09:47 | disposition home or self-care (01) ==
LOC: SURGOUT 08:21
PROVIDERS: PCP Family Medicine; Visit Provider Anesthesiology
DX: M47.816 Spondylosis without myelopathy or radiculopathy, lumbar region (principal)
CPT/HCPCS: 64493; 64494; J0665

== ENCOUNTER 2024-07-03 12:53 | Outpatient (OUT) | payer MEDICARE, MEDICAID, SELFPAY ==
--- NOTE | 2024-07-03 13:22 | P.CN_ITS ---
Consult Note: HPI Data of Consult Patient: known to practice within the last 3 years Consult date: 03/04/24 Requesting Physician: Monica Burns NP Primary Care Provider: Isatu CASTRO Consult Narrative Reason for consult: neck back pain Narrative: 53yof who presents for assessment of chronic neck, mid back, and low back pain. continues in series of provider directed home exercises >6 weeks, with minimal benefit. uses celebrex, with limited benefit. denies adverse med side effects. chronic low back pain without numbness tingling weakness of legs. Hx of mild facet arthropathy and degenerative changes on lumbar xray. Recently underwent bilateral L4-5 L5-S1 MBB #1 and #2 with >85% improvement immediate relief and greater than 12 hours after the procedure. Patient would also like to discuss new onset midback shooting pain that started 3 weeks ago without incident, as well as worsening left sided neck pain and cervical radiculopathy cc:: CC: Monica Burns NP Review of Systems 2 ROS0 Status of ROS 10 or more systems reviewed and unremark able except as noted in history and below [facility] Medical History (Updated 07/03/24 @ 13:25 by Monica Burns NP) Strain of muscle(s) and tendon(s) of peroneal muscle group at lower leg level, right leg, initial encounter ?S86.311A - Strain of muscle(s) and tendon(s) of peroneal muscle group at lower leg level, right leg, initial encounter (ICD-10) Pain in right ankle and joints of right foot ?M25.571 - Pain in right ankle and joints of right foot (ICD-10) Primary osteoarthritis, right ankle and foot ?M19.071 - Primary osteoarthritis, right ankle and foot (ICD-10) Overactive bladder ?N32.81 - Overactive bladder (ICD-10) Insomnia ?G47.00 - Insomnia, unspecified (ICD-10) Bipolar disorder ?F31.9 - Bipolar disorder, unspecified (ICD-10) Gastroparesis ?K31.84 - Gastroparesis (ICD-10) Panic attacks ?F41.0 - Panic disorder [episodic paroxysmal anxiety] (ICD-10) OCD (obsessive compulsive disorder) ?F42.9 - Obsessive-compulsive disorder, unspecified (ICD-10) COVID-19 ?U07.1 - COVID-19 (ICD-10) Migraine ?G43.909 - Migraine, unspecified, not intractable, without status migrainosus (ICD-10) Gastritis ?K29.70 - Gastritis, unspecified, without bleeding (ICD-10) GERD (gastroesophageal reflux disease) ?K21.9 - Gastro-esophageal reflux disease without esophagitis (ICD-10) Peroneal tendinitis ?M76.70 - Peroneal tendinitis, unspecified leg (ICD-10) Posterior tibial tendon dysfunction ?M76.829 - Posterior tibial tendinitis, unspecified leg (ICD-10) Painful orthopaedic hardware ?T84.84XA - Pain due to internal orthopedic prosthetic devices, implants and grafts, initial encounter (ICD-10) Post op infection ?T81.40XA - Infection following a procedure, unspecified, initial encounter (ICD-10) Restless leg syndrome ?G25.81 - Restless legs syndrome (ICD-10) Tibialis anterior tendon tear, traumatic ?S86.219A - Strain of muscle(s) and tendon(s) of anterior muscle group at lower leg level, unspecified leg, initial encounter (ICD-10) Osteoarthritis ?M19.90 - Unspecified osteoarthritis, unspecified site (ICD-10) Back pain ?M54.9 - Dorsalgia, unspecified (ICD-10) Sleep disorder ?G47.9 - Sleep disorder, unspecified (ICD-10) PTSD (post-traumatic stress disorder) ?F43.10 - Post-traumatic stress disorder, unspecified (ICD-10) Depression ?F32.A - Depression, unspecified (ICD-10) Anxiety ?F41.9 - Anxiety disorder, unspecified (ICD-10) Sleep apnea ?G47.30 - Sleep apnea, unspecified (ICD-10) Asthma ?J45.909 - Unspecified asthma, uncomplicated (ICD-10) Constipation ?K59.00 - Constipation, unspecified (ICD-10) High cholesterol ?E78.00 - Pure hypercholesterolemia, unspecified (ICD-10) Hypertension ?I10 - Essential (primary) hypertension (ICD-10) Female rectocele with enterocele ?N81.6 - Rectocele (ICD-10) ?K46.9 - Unspecified abdominal hernia without obstruction or gangrene (ICD- 10) 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 - Other specified functional intestinal disorders (ICD-10) Surgical History S/P foot surgery ?Z98.890 - Other specified postprocedural states (ICD-10) H/O cervical spine surgery ?Z98.890 - Other specified postprocedural states (ICD-10) S/P placement of nerve stimulator (01/02/24) ?Z96.82 - Presence of neurostimulator (ICD-10) S/P placement of nerve stimulator ?Z96.82 - Presence of neurostimulator (ICD-10) History of ankle surgery (11/13/23) ?Z98.890 - Other specified postprocedural states (ICD-10) H/O tooth extraction ?K08.409 - Partial loss of teeth, unspecified cause, unspecified class (ICD- 10) H/O foot surgery (05/12/23) ?Z98.890 - Other specified postprocedural states (ICD-10) History of appendectomy (1987) ?Z90.49 - Acquired absence of other specified parts of digestive tract (ICD- 10) History of colonoscopy ?Z98.890 - Other specified postprocedural states (ICD-10) History of colectomy (03/2022) ?Z90.49 - Acquired absence of other specified parts of digestive tract (ICD- 10) History of tonsillectomy and adenoidectomy ?Z90.89 - Acquired absence of other organs (ICD-10) History of hysterectomy (2014) ?Z90.710 - Acquired absence of both cervix and uterus (ICD-10) History of arthroplasty of right ankle ?Z98.890 - Other specified postprocedural states (ICD-10) History of repair of rotator cuff ?Z98.890 - Other specified postprocedural states (ICD-10) S/P ankle ligament repair (2020) ?Z98.890 - Other specified postprocedural states (ICD-10) Family History Other Family history of Alzheimer's disease Family history of coronary artery disease Family history of heart disease Family history of hypertension Social History Within the past year, how often did you have a drink containing alcohol: never Score interpretation: A score less than 3 is consistent with normal alcohol consumption. Smoking status: Never smoker Non-prescribed substance use: denies use Previous occupational history: [employer] Highest level of school completed/degree received: some college, no degree Little interest or pleasure in doing things: not at all Feeling down, depressed, or hopeless: not at all Feel stressed/tense/nervous/anxious/difficulty sleeping: only a little Due to disability, difficulty making decisions: No Do you think of yourself as: straight/heterosexual Gender Identity: female Meds Home Medications and Allergies Home Medications ?Medication ?Instructions ?Recorded ?Confirmed ?Type fremanezumab-vfrm 225 mg/1.5 mL 125 mg subcut .[id number] 05/04/23 07/01/24 History subcutaneous auto-injector (Ajovy) ropinirole 1 mg tablet 1 mg PO QAM 05/04/23 07/01/24 History ropinirole 2 mg tablet 2 mg PO QPM 05/04/23 07/01/24 History fluticasone fur. 100 mcg-umeclid 1 inh inhalation Q24H 11/03/23 07/01/24 History 62.5 mcg-vilant 25 mcg inhalat.powder (Trelegy Ellipta) albuterol sulfate 90 mcg/actuation 2 inh inhalation Q6H PRN shortness 05/17/24 07/01/24 History aerosol inhaler of breath or wheezing aripiprazole 300 mg suspension, 300 mg IM Q28D 05/17/24 07/01/24 History extended rel. intramuscular syringe (Lolis Rush) atenolol 50 mg tablet 50 mg PO Q24H 05/17/24 07/01/24 History cetirizine 10 mg tablet 10 mg PO DAILY 05/17/24 07/01/24 History cholecalciferol (vitamin D3) 125 5,000 unit PO DAILY 05/17/24 07/01/24 History mcg (5,000 unit) tablet ferrous sulfate 325 mg (65 mg 325 mg PO DAILY 05/17/24 07/01/24 History iron) tablet losartan 25 mg tablet 25 mg PO DAILY 05/17/24 07/01/24 History omeprazole 40 mg capsule,delayed 40 mg PO DAILY 05/17/24 07/01/24 History release cholecalciferol (vitamin D3) 125 125 mcg PO DAILY 90 days #90 caps 05/27/24 07/01/24 Rx mcg (5,000 unit) capsule enoxaparin 40 mg/0.4 mL 40 mg (0.4 mL) subcut Q24H 30 days 05/29/24 07/01/24 Rx subcutaneous syringe (Lovenox) #12 mL Allergies Allergy/AdvReac Type Severity Reaction Status Date / Time risperidone [From Risperdal] AdvReac Mild breast Verified 07/01/24 09:10 nipples leak Exam Constitutional Documenting provider has reviewed patient's vital signs: yes Common normals: no apparent distress, oriented x3, healthy appearing, alert and well nourished General appearance: cooperative HENMT Common normals: normocephalic, hearing grossly normal bilaterally and moist oral mucous membranes Head and scalp: normocephalic Eye Common normals: PERRL Pupil: PERRL Neck & C-Spine Common normals: full ROM General: normal visual inspection Cervical spine: cervical ROM normal, pain with cervical ROM and paracervical muscle tenderness Other: positive spurlings decreased sensation to left 3,4,5 pattern strength 4/5 in BUE Chest Common normals: inspection of chest normal Respiratory Common normals: normal respiratory effort, no retractions and no use of accessory muscles Back & Pelvis Thoracic spine/upper back: pain with ROM and thoracic spinal tenderness; no paraspinal muscle tenderness and no paraspinal muscle spasm Lumbar spine/lower back: ROM limited, pain with ROM and straight leg raise negative bilaterally; no paraspinal muscle tenderness and no paraspinal muscle spasm Sacroiliac joints: SI joint(s) abnormal (tenderness over bilateral PSIS) Other: bilateral facet loading positive tenderness over bilateral L4-S1 facets strength 5/5 in BLE sensation intact BLE Back image (female): 2 1. stabbing intermittent pain Extremity Common normals: normal to inspection and full ROM Other: cast present to left foot, nonweight bearing Neuro Common normals: oriented x3, CN's II-XII intact bilaterally, moves all extremities, no focal motor deficits, no sensory deficits noted and deep tendon reflexes 2+ bilaterally Sensorium/orientation: alert Gait (neuro): assistive device used orthotic device Motor exam: strength 5/5 throughout and no movement abnormalities noted Psych Common normals: mental status grossly normal, thought process normal, cooperative, affect normal, speech normal and activity/motor behavior normal Speech: normal speech Thought process: normal thought process Results Additional Findings Additional findings: If on a controlled substance or opioids, I have checked an [place] report on this patient and there are no aberrancies noted in the prescribing history.??If on a controlled substance or opioid a drug screen was completed and reviewed within the last year, and if there has not been a drug screen completed we ordered one today to monitor higher risk, state monitored pain medication use. As part of providing excellent, safe, comprehensive care, the following was completed at our patient's visit: 1. A medication reconciliation and review to ensure accurate knowledge of current/active medications, including asking our patients to inform us about any mcsa-kxd-uorrtir medications or herbal remedies/nutritional supplements/alternative remedies. 2. A review to specifically ensure our patients have had annual screening for screening for depression, screening for tobacco use, and screening for unhealthy alcohol use. For concerning screenings had a discussion with the patient, provided patient education, and recommended follow-up with primary care provider when appropriate. If patient noted with a risk of falling, they received education on strength, gait, and balance training to prevent future risk of falling. Assessment and Plan Assessment and Plan (1) Lumbar spondylosis: (2) Cervical radiculopathy: (3) Thoracic back pain: (4) Cervical spondylosis: (5) Degenerative cervical disc: (6) Myofascial pain: (7) Failed neck syndrome: Plan proceed with bilateral L4-5 L5-S1 facet joint RFA under fluoroscopy with 10mg PO valium 30-60mins prior to procedure for anxiolysis, risks vs benefits reviewed update thoracic xray for acute stabbing midback pain of thoracic region start flexeril 10mg TID PRN pain/spasms left C3-4 C4-5 TFESI under fluoroscopy for cervical radiculopathy, cervical DDD. Patient feels left c2-3 c3-4 RFA has worn off as she is having significant neck pain on the left side with numbness tingling to left shoulder and upper arms. discussed spinal cord stimulator trial for failed neck syndrome in the future, handout provided f/u after procedures completed
== END 2024-07-03 12:54 | disposition home or self-care (01) ==
LOC: PM 12:54
PROVIDERS: PCP Family Medicine; Visit Provider Nurse Practitioner
DX: M47.816 Spondylosis without myelopathy or radiculopathy, lumbar region (principal); M54.12 Radiculopathy, cervical region; M54.6 Pain in thoracic spine; M47.812 Spondylosis without myelopathy or radiculopathy, cervical region; M50.30 Other cervical disc degeneration, unspecified cervical region; M79.18 Myalgia, other site
CPT/HCPCS: G0463

== ENCOUNTER 2024-07-09 09:59 | Outpatient (OUT) | payer MEDICARE, MEDICAID, SELFPAY ==
--- NOTE | 2024-07-09 | XR_ITS ---
The [address] [address] Patient Name: ELSIE FUENTES MRN: [id number] date: 1970 Sex: F Assigned Patient Location: Current Patient Location: Accession/Order Number: [id number] Exam Date: 07/09/2024 10:00 Report Date: 07/10/2024 06:59 At the request of: SADE WILDE Procedure: XR foot RT min 3V PROCEDURE: XR foot RT min 3V HISTORY: RIGHT FOOT PAIN COMPARISON: XR foot right 06/19/2024 FINDINGS: BONES:Prior talocalcaneal and talonavicular fusion via multiple lag screws. Prior posterior and anterior calcaneal osteotomy and fusion. Osteotomy and wedge placement within medial cuneiform. Osteotomy and single screw repair involving head of first metatarsal. Mild degenerative changes the first metatarsophalangeal joint. SOFT TISSUES:No visible soft tissue swelling. EFFUSION:None visible. OTHER: Negative. XR/XR foot RT min 3V IMPRESSION: 1. Stable surgical changes without evidence of hardware failure. Electronically authenticated by: ZAIDA ACOSTA Date: 07/10/2024 06:59
== END 2024-07-09 10:00 | disposition home or self-care (01) ==
LOC: EC 09:59
PROVIDERS: PCP Family Medicine; Visit Provider Podiatrist Foot & Ankle Surgery
DX: M19.071 Primary osteoarthritis, right ankle and foot (principal); M24.674 Ankylosis, right foot
CPT/HCPCS: 73630

== ENCOUNTER 2024-07-12 10:39 | Outpatient (OUT) | payer MEDICARE, MEDICAID, SELFPAY ==
--- NOTE | 2024-07-12 10:56 | XR_ITS ---
The [address] [address] Patient Name: ELSIE FUENTES MRN: [id number] date: 1970 Sex: F Assigned Patient Location: [facility] Current Patient Location: Accession/Order Number: [id number] Exam Date: 07/12/2024 10:50 Report Date: 07/13/2024 08:07 At the request of: JESS BLACK Procedure: XR thoracic spine 2V EXAMINATION: XR thoracic spine 2V HISTORY: Thoracic Pain COMPARISON: No relevant comparison available. FINDINGS: BONES: No significant spondylosis, scoliosis, fracture, or visible bony lesion. DISC SPACES: Intervertebral disc spacer within lower cervical spine, C6-C7 level. Multilevel small anterior degenerative endplate osteophytes of the thoracic spine; no significant thoracic disc space narrowing. PARASPINOUS: Negative. No paraspinous abnormality is seen. OTHER: Negative. XR/XR thoracic spine 2V IMPRESSION: 1. Minimal degenerative changes of the thoracic spine. No specific findings to account for patient's symptoms. Electronically authenticated by: ZAIDA ACOSTA Date: 07/13/2024 08:07
== END 2024-07-12 10:40 | disposition home or self-care (01) ==
LOC: RAD 10:40
PROVIDERS: PCP Family Medicine; Visit Provider Nurse Practitioner
DX: M54.6 Pain in thoracic spine (principal); M47.894 Other spondylosis, thoracic region
CPT/HCPCS: 72070

== ENCOUNTER 2024-07-22 09:55 | Day surgery (SDC) | payer MEDICARE, MEDICAID, SELFPAY ==
[2024-07-22 10:21] VITALS: BP 110/71; PULSE 72; TEMP 36.6; O2SAT 100
[2024-07-22 10:51] VITALS: BP 108/73; PULSE 77; O2SAT 98
[2024-07-22 11:01] VITALS: BP 109/74; PULSE 80; O2SAT 97
[2024-07-22] MEDS: LIDOCAINE HCL 2% 400 MG/20 ML MDV 10 ML INJ (11:06)
[2024-07-22] MEDS: BUPIVACAINE HCL 0.25% PF 25 MG/10 ML VIAL 4 ML INJ (11:06)
[2024-07-22] MEDS: TRIAMCINOLONE ACETONIDE 40 MG/ML VIAL 80 MG INJ (11:07)
--- NOTE | 2024-07-22 11:07 | P.ON_ITS ---
Date of procedure: 07/22/24 Pre-op diagnosis: Pain due to lumbar spondylosis without myelopathy Post-op diagnosis: same as pre-op Procedure: Procedure: Bilateral L4-5, L5-S1 radiofrequency ablation Medications: Bupivacaine 0.25% 5cc, lidocaine 2% 6cc, kenalog 80mg The patient was seen and examined in the preoperative holding area.? The site was marked.? Written informed consent was obtained and placed on the chart.? The patient was brought to the medical procedure unit and placed in the prone position.? A timeout was completed verifying correct patient, procedure, positioning, and special requirements.? The skin overlying the target points, the designated medial branch, were prepped and draped in the usual sterile fashion.? The target point was achieved with a 20-gauge 15 cm with a 10 mm curved active tip radiofrequency cannula under direct fluoroscopic visualization.? The needle was inserted at level L4 on the right side. Needle tip position was confirmed with lateral fluoroscopic position.? Motor stimulation was carried out at 2 Hz up to 5 volts with the absence of extremity activity.? This was repeated at level L5, S1 on right side.?? Sensory stimulation was carried out.? Concordant pain was realized at the above- mentioned sites.? Then radiofrequency lesioning was carried out times 90 seconds at 80 degrees times 2 lesions at each level.? The radiofrequency probe was removed prior to cannula removal.? The above-mentioned injectate was placed in 1 mL increments.? The needle was removed. The same procedure, with the same steps, was then completed on the left side at the same levels. Insertion sites were covered.? The patient was taken to the postoperative recovery area and monitored for an appropriate length of time before being found suitable for discharge in the company of a responsible adult. Anesthesia: Local Surgeon: Ace Ahumada Pathology: none sent Condition: stable Disposition: no change
== END 2024-07-22 11:11 | disposition home or self-care (01) ==
LOC: SURGOUT 09:56
PROVIDERS: PCP Family Medicine; Visit Provider Anesthesiology
DX: M47.816 Spondylosis without myelopathy or radiculopathy, lumbar region (principal)
CPT/HCPCS: 64635; 64636; J0665; J3301

== ENCOUNTER 2024-07-30 09:46 | Outpatient (OUT) | payer MEDICARE, MEDICAID, SELFPAY ==
--- NOTE | 2024-07-30 | XR_ITS ---
The [address] [address] Patient Name: ELSIE FUENTES MRN: [id number] date: 1970 Sex: F Assigned Patient Location: Current Patient Location: Accession/Order Number: [id number] Exam Date: 07/30/2024 09:46 Report Date: 08/01/2024 05:01 At the request of: SADE WILDE Procedure: XR foot RT min 3V PROCEDURE: XR foot RT min 3V HISTORY: RIGHT FOOT PAIN COMPARISON: XR foot right 07/09/2024 FINDINGS: BONES:Mechanical fusion of the talonavicular and talocalcaneal joints via multiple lag screws; no appreciable hardware fracture loosening. Prior anterior posterior calcaneal osteotomy and repair. Osteotomy and wedge placement within the medial cuneiform. Single screw within head of first metatarsal. No bone fracture or dislocation. No significant midfoot or forefoot joint space narrowing. SOFT TISSUES:No visible soft tissue swelling. EFFUSION:None visible. OTHER: Negative. XR/XR foot RT min 3V IMPRESSION: 1. Stable surgical changes without evidence of hardware failure or change in alignment. Electronically authenticated by: ZAIDA ACOSTA Date: 08/01/2024 05:01
== END 2024-07-30 09:47 | disposition home or self-care (01) ==
LOC: EC 09:46
PROVIDERS: PCP Family Medicine; Visit Provider Podiatrist Foot & Ankle Surgery
DX: M79.671 Pain in right foot (principal)
CPT/HCPCS: 73630

== ENCOUNTER 2024-08-01 10:40 | Outpatient (OUT) | payer MEDICARE, MEDICAID, SELFPAY ==
--- NOTE | 2024-08-01 11:08 | P.CN_ITS ---
Consult Note: HPI Data of Consult Patient: known to practice within the last 3 years Consult date: 03/04/24 Requesting Physician: Monica Burns NP Primary Care Provider: Isatu CASTRO Consult Narrative Reason for consult: back pain Narrative: 53yof who presents for assessment of chronic neck, mid back, and low back pain. continues in series of provider directed home exercises >6 weeks, with minimal benefit. uses celebrex, with limited benefit. denies adverse med side effects. chronic low back pain without numbness tingling weakness of legs. Hx of mild facet arthropathy and degenerative changes on lumbar xray. Recently underwent bilateral L4-5 L5-S1 RFA on 07/22/24 since the procedure she has had increased lo w back pain and aching, pain unresponsive to ice, ibuprofen, TENS, flexeril 10mg TID, tylenol, ibuprofen. denies numbness tingling weakness and loss of bowel or bladder. cc:: CC: Monica Burns NP Review of Systems ROS Status of ROS 10 or more systems reviewed and unremark able except as noted in history and below Musculoskeletal Reports: back pain PFSH PFSH Medical History (Updated 07/03/24 @ 13:25 by Monica Burns NP) Strain of muscle(s) and tendon(s) of peroneal muscle group at lower leg level, right leg, initial encounter ?S86.311A - Strain of muscle(s) and tendon(s) of peroneal muscle group at lower leg level, right leg, initial encounter (ICD-10) Pain in right ankle and joints of right foot ?M25.571 - Pain in right ankle and joints of right foot (ICD-10) Primary osteoarthritis, right ankle and foot ?M19.071 - Primary osteoarthritis, right ankle and foot (ICD-10) Overactive bladder ?N32.81 - Overactive bladder (ICD-10) Insomnia ?G47.00 - Insomnia, unspecified (ICD-10) Bipolar disorder ?F31.9 - Bipolar disorder, unspecified (ICD-10) Gastroparesis ?K31.84 - Gastroparesis (ICD-10) Panic attacks ?F41.0 - Panic disorder [episodic paroxysmal anxiety] (ICD-10) OCD (obsessive compulsive disorder) ?F42.9 - Obsessive-compulsive disorder, unspecified (ICD-10) COVID-19 ?U07.1 - COVID-19 (ICD-10) Migraine ?G43.909 - Migraine, unspecified, not intractable, without status migrainosus (ICD-10) Gastritis ?K29.70 - Gastritis, unspecified, without bleeding (ICD-10) GERD (gastroesophageal reflux disease) ?K21.9 - Gastro-esophageal reflux disease without esophagitis (ICD-10) Peroneal tendinitis ?M76.70 - Peroneal tendinitis, unspecified leg (ICD-10) Posterior tibial tendon dysfunction ?M76.829 - Posterior tibial tendinitis, unspecified leg (ICD-10) Painful orthopaedic hardware ?T84.84XA - Pain due to internal orthopedic prosthetic devices, implants and grafts, initial encounter (ICD-10) Post op infection ?T81.40XA - Infection following a procedure, unspecified, initial encounter (ICD-10) Restless leg syndrome ?G25.81 - Restless legs syndrome (ICD-10) Tibialis anterior tendon tear, traumatic ?S86.219A - Strain of muscle(s) and tendon(s) of anterior muscle group at lower leg level, unspecified leg, initial encounter (ICD-10) Osteoarthritis ?M19.90 - Unspecified osteoarthritis, unspecified site (ICD-10) Back pain ?M54.9 - Dorsalgia, unspecified (ICD-10) Sleep disorder ?G47.9 - Sleep disorder, unspecified (ICD-10) PTSD (post-traumatic stress disorder) ?F43.10 - Post-traumatic stress disorder, unspecified (ICD-10) Depression ?F32.A - Depression, unspecified (ICD-10) Anxiety ?F41.9 - Anxiety disorder, unspecified (ICD-10) Sleep apnea ?G47.30 - Sleep apnea, unspecified (ICD-10) Asthma ?J45.909 - Unspecified asthma, uncomplicated (ICD-10) Constipation ?K59.00 - Constipation, unspecified (ICD-10) High cholesterol ?E78.00 - Pure hypercholesterolemia, unspecified (ICD-10) Hypertension ?I10 - Essential (primary) hypertension (ICD-10) Female rectocele with enterocele ?N81.6 - Rectocele (ICD-10) ?K46.9 - Unspecified abdominal hernia without obstruction or gangrene (ICD- 10) 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 - Other specified functional intestinal disorders (ICD-10) Surgical History S/P foot surgery ?Z98.890 - Other specified postprocedural states (ICD-10) H/O cervical spine surgery ?Z98.890 - Other specified postprocedural states (ICD-10) S/P placement of nerve stimulator (01/02/24) ?Z96.82 - Presence of neurostimulator (ICD-10) S/P placement of nerve stimulator ?Z96.82 - Presence of neurostimulator (ICD-10) History of ankle surgery (11/13/23) ?Z98.890 - Other specified postprocedural states (ICD-10) H/O tooth extraction ?K08.409 - Partial loss of teeth, unspecified cause, unspecified class (ICD- 10) H/O foot surgery (05/12/23) ?Z98.890 - Other specified postprocedural states (ICD-10) History of appendectomy (1987) ?Z90.49 - Acquired absence of other specified parts of digestive tract (ICD- 10) History of colonoscopy ?Z98.890 - Other specified postprocedural states (ICD-10) History of colectomy (03/2022) ?Z90.49 - Acquired absence of other specified parts of digestive tract (ICD- 10) History of tonsillectomy and adenoidectomy ?Z90.89 - Acquired absence of other organs (ICD-10) History of hysterectomy (2014) ?Z90.710 - Acquired absence of both cervix and uterus (ICD-10) History of arthroplasty of right ankle ?Z98.890 - Other specified postprocedural states (ICD-10) History of repair of rotator cuff ?Z98.890 - Other specified postprocedural states (ICD-10) S/P ankle ligament repair (2020) ?Z98.890 - Other specified postprocedural states (ICD-10) Family History Other Family history of Alzheimer's disease Family history of coronary artery disease Family history of heart disease Family history of hypertension Social History Within the past year, how often did you have a drink containing alcohol: never Score interpretation: A score less than 3 is consistent with normal alcohol co nsumption. Smoking status: Never smoker Non-prescribed substance use: denies use Previous occupational history: [employer] Highest level of school completed/degree received: some college, no degree Little interest or pleasure in doing things: not at all Feeling down, depressed, or hopeless: not at all Feel stressed/tense/nervous/anxious/difficulty sleeping: only a little Due to disability, difficulty making decisions: No Do you think of yourself as: straight/heterosexual Gender Identity: female Meds Home Medications and Allergies Home Medications ?Medication ?Instructions ?Recorded ?Confirmed ?Type fremanezumab-vfrm 225 mg/1.5 mL 125 mg subcut .[id number] 05/04/23 07/22/24 History subcutaneous auto-injector (Ajovy) ropinirole 1 mg tablet 1 mg PO QAM 05/04/23 07/22/24 History ropinirole 2 mg tablet 2 mg PO QPM 05/04/23 07/22/24 History fluticasone fur. 100 mcg-umeclid 1 inh inhalation Q24H 11/03/23 07/22/24 History 62.5 mcg-vilant 25 mcg inhalat.powder (Trelegy Ellipta) albuterol sulfate 90 mcg/actuation 2 inh inhalation Q6H PRN shortness 05/17/24 07/22/24 History aerosol inhaler of breath or wheezing aripiprazole 300 mg suspension, 300 mg IM Q28D 05/17/24 07/22/24 History extended rel. intramuscular syringe (Lolis Rush) atenolol 50 mg tablet 50 mg PO Q24H 05/17/24 07/22/24 History cetirizine 10 mg tablet 10 mg PO DAILY 05/17/24 07/22/24 History cholecalciferol (vitamin D3) 125 5,000 unit PO DAILY 05/17/24 07/22/24 History mcg (5,000 unit) tablet ferrous sulfate 325 mg (65 mg 325 mg PO DAILY 05/17/24 07/22/24 History iron) tablet losartan 25 mg tablet 25 mg PO DAILY 05/17/24 07/22/24 History omeprazole 40 mg capsule,delayed 40 mg PO DAILY 05/17/24 07/22/24 History release cholecalciferol (vitamin D3) 125 125 mcg PO DAILY 90 days #90 caps 05/27/24 07/22/24 Rx mcg (5,000 unit) capsule cyclobenzaprine 10 mg tablet mg 07/26/24 History Allergies Allergy/AdvReac Type Severity Reaction Status Date / Time risperidone [From Risperdal] AdvReac Mild breast Verified 07/22/24 10:19 nipples leak Exam Constitutional Documenting provider has reviewed patient's vital signs: yes Common normals: no apparent distress, oriented x3, healthy appearing, alert and well nourished General appearance: cooperative HENMT Common normals: normocephalic, hearing grossly normal bilaterally and moist oral mucous membranes Head and scalp: normocephalic Eye Common normals: PERRL Pupil: PERRL Neck & C-Spine Common normals: full ROM General: normal visual inspection Chest Common normals: inspection of chest normal Respiratory Common normals: normal respiratory effort, no retractions and no use of accessory muscles Back & Pelvis Lumbar spine/lower back: ROM limited, pain with ROM, paraspinal muscle tenderness, paraspinal muscle spasm and straight leg raise negative bilaterally Sacroiliac joints: SI joints normal Other: spasming and trigger points noted to bilateral latissimus dorsi and paralumbar spine Extremity Common normals: normal to inspection and full ROM Neuro Common normals: oriented x3, CN's II-XII intact bilaterally, moves all extremities, no focal motor deficits, no sensory deficits noted, deep tendon reflexes 2+ bilaterally and gait normal Sensorium/orientation: alert Motor exam: strength 5/5 throughout and no movement abnormalities noted Psych Common normals: mental status grossly normal, thought process normal, cooperative, affect normal, speech normal and activity/motor behavior normal Speech: normal speech Thought process: normal thought process Results Additional Findings Additional findings: If on a controlled substance or opioids, I have checked an [place] report on this patient and there are no aberrancies noted in the prescribing history.??If on a controlled substance or opioid a drug screen was completed and reviewed within the last year, and if there has not been a drug screen completed we ordered one today to monitor higher risk, state monitored pain medication use. As part of providing excellent, safe, comprehensive care, the following was completed at our patient's visit: 1. A medication reconciliation and review to ensure accurate knowledge of current/active medications, including asking our patients to inform us about any [id number]-[id number] medications or herbal remedies/nutritional supplements/alternative remedies. 2. A review to specifically ensure our patients have had annual screening for screening for depression, screening for tobacco use, and screening for unhealthy alcohol use. For concerning screenings had a discussion with the patient, provided patient education, and recommended follow-up with primary care provider when appropriate. If patient noted with a risk of falling, they received education on strength, gait, and balance training to prevent future risk of falling. Assessment and Plan Assessment and Plan (1) Lumbar spondylosis: (2) Myofascial pain: Plan stop flexeril, start baclofen 10mg TID PRN pain/spasms stop otc nsaids, start ibuprofen 800mg q8hrs prn pain continue PRN ice/heat and TENS as tolerated pt to call if she develops numbness, tingling, weakness, loss of bowel/bladder f/u as scheduled
== END 2024-08-01 10:41 | disposition home or self-care (01) ==
LOC: PM 10:40
PROVIDERS: PCP Family Medicine; Visit Provider Nurse Practitioner
DX: M47.816 Spondylosis without myelopathy or radiculopathy, lumbar region (principal); M79.18 Myalgia, other site
CPT/HCPCS: G0463

== ENCOUNTER 2024-08-05 07:34 | Day surgery (SDC) | payer MEDICARE, MEDICAID, SELFPAY ==
--- OUTSIDE RECORDS SUMMARY | 2024-08-05 07:40 | XMS_ITS | CCD ---
Author Organization [facility] ion Partnership [facility] Care Team Providers Care Manager Paper Name Role Phone PARISH GÓMEZ Primary Care Unavailable Eliceo Gómez Jr. Primary Care Provider Gwendolyn Stroud Unavailable Maximus OROSCO, Gwendolyn Unavailable Beto Snyder Unavailable Tita Daugherty Unavailable Erica Kingston Unavailable Eliceo Gómez Unavailable Unavailable Unavailable Allison Arita Unavailable Eliceo Gómez Jr. Primary Care Provider Maximus OROSCO, Gwendolyn Unavailable Eliceo Gómez Unavailable DO Shannon Gómez Primary Care Provider [phone] MD Beto Snyder Attending Provider [phone] Eliceo Gómez Jr. Primary Care Provider Maximus OROSCO, Gwendolyn Unavailable [phone] Beto Cartagena Unavailable MD Beto Cartagena Attending Provider WINSTON HANNAH Attending Unavailable WINSTON HANNAH Referring Unavailable ELICEO GÓMEZ JR Primary Care Unavail able ISRA MASTERS Attending Unavailable ISRA MASTERS Referring Unavailable ELICEO GÓMEZ JR Primary Care Unavail able DO Shannon Gómez Primary Care Provider [phone] LORRAINE Duron Attending Provider JEM Bojorquez, DR BAEZA Consulting Unavailable KAFTAN, DR Isatu LUGO Primary Care Unavailable HAY ., DR BAEZA Admitting Unavailable HAY ., DR BAEZA Attending Unavailable SALMA AMEZQUITA Consulting Unavailable HIGHLANDER, SADE Keys Consulting Unavailable HIGHLANDER, SADE Keys Attending Unavailable HIGHLANDER, SADE Keys Admitting Unavailable KAFTAN, DR Isatu LUGO Primary Care Unavailable HOLLINGSWORTHSHERLYN SAMAYOA Consulting Unavailable HIGHLANDER, SADE Keys Attending Unavailable [...] KAFTAN, DR Isatu LUGO Primary Care Unavailable ZIEBTONIA, DR ZAIDA Braden Consulting Unavailable KAREEM, NIECY [...] Unavailable HIGHLSADE GRANADOS Consulting Unavailable CHANI, SADE Keys Attending Unavailable SADE FELIX Admitting Unavailable KALEIGHA, DR Isatu LUGO Primary Care Unavailable KALEIGHA, DR Isatu LUGO Primary Care Unavailable PAY ., DR MCDONALD Attending Unavailable PAY ., DR MCDONALD Admitting Unavailable PAY ., DR MCDONALD Consulting Unavailable NIECY DURON Attending Unavailable NICEY DURON Admitting Unavailable DALIA, DR Isatu LUGO Primary Care Unavailable KARLA, DR ZAIDA Braden Consulting Unavailable NIECY DURON Consulting Unavailable DO Anibal Valle Emergency Provider [phone] Unavailable Unavailable Unavailable Primary Care Provider UnavailLEV [...] ilaraceli Gómez Jr., Eliceo LOAIZA Primary Care [facility] jose eduardo PAULINE CHRISTENSEN Attending Unavailable ELICEO GÓMEZ JR Referring Unavailable ELICEO GÓMEZ JR Primary Care Unavailable Dalia Morales DO, George R Primary Care Provider DO Shannon Gómez Primary Care Provider DO Eagle Vazquez Attending Provider RAJIV WILKINSON Attending Unavailable ELICEO GÓMEZ JR Primary Care Unavailable CULLEN DAWKINS Referring Unavailable ELICEO GÓMEZ JR Primary Care Unavailable WERBELEN, CULLEN W Attending Unavailable EVERETTE, CULLEN W Referring Unavailable KAFTAN JR, ELICEO Braden Primary Care Unavailable WERNING, CULLEN W Attending Unavailable KAFTAN JR, ELICEO R Referring Unavailable KAFTAN JR, ELICEO Braden Primary Care Unavailable WERNING, CULLEN W Admitting Unavailable WERNING, CULLEN W Attending Unavailable WERNING, CULLEN W Referring Unavailable KAFTAN JR, ELICEO Braden Primary Care Unavailable WANG, PAM Referring Unavailable KAFTAN JR, ELICEO LUGO Primary Care Unavail able Kaleigha Morales, DO, Eliceo Lugo Primary Care [facility] jose eduardo RENOLEIGHA JR, ELICEO LUGO Primary Care Unavail able WANG, PAM Admitting Unavailable WANG, PAM Attending Unavailable WANG, PAM Referring Unavailable KAFTAN JR, ELICEO LUGO Primary Care Unavail able JAIRON LAI Attending Unavailable WANG, PAM Attending Unavailable KAFTAN JR, ELICEO LUGO Primary Care Unavail able KAFTAN JR, ELICEO LUGO Primary Care Unavail able NELSY CHÁVEZ Attending Unavailable FLOWER LOPEZ Attending Unavailable KAFTAN JR, ELICEO LUGO Primary Care Unavail able KAFTAN JR, ELICEO LUGO Primary Care Unavail able KAFTAN JR, ELICEO LUGO Primary Care Unavail able KAFTAN , ELICEO LUGO Primary Care Unavail able WANG, PAM Attending Unavailable KAFTAN , ELICEO LUGO Primary Care Unavail able WANG, PAM Attending Unavailable WANG, PAM Referring Unavailable KAFTAN JR, ELICEO LUGO Primary Care Unavail able DORIS [...] Unavailable DO Shannon Gómez Primary Care Provider [phone] FADUMO Felix Attending Provider [phone] Sade Felix Attending Unavailable Sade Felix Admitting Unavailable Shannon Gómez Primary Care Unavailable Eagle Vazquez Attending Unavailable Eagle Vazquez Admitting Unavailable Sade Felix Attending Unavailable Sade Felix Admitting Unavailable Shannon Gómez Primary Care Unavailable Anibal Valle Attending Unavailable Anibal Valle Admitting Unavailable Shannon Gómez Primary Care Unavailable , PAULINE Referring Unavailable CHRISTENSEN, PAULINE Attending Unavailable GIANA MORALES Attending Unavailable CHRISTENSEN, PAULINE Attending Unavailable CHRISTENSEN, SANGITAAZ Attending Unavailable CHRISTENSEN, AJAZ Referring Unavailable Giedraitis , Andrius Vytautas Attending Unavailable Giedraitis , Andrius Vytautas Attending Unavailable Giedraitis MD, Andrius Vytautas Attending Unavailable Giedraitis MD, Andrius Vytautas Attending Unavailable Giedraitis , Andrius Vytautas Attending Unavailable Giedraitis , Andrius Vytautas Attending Unavailable Giedraitis , Andrius Vytautas Attending Unavailable Giedraitis , Andrius Vytautas Attending Unavailable Giedraitis , Andrius Vytautas Attending Unavailable Giedraitis , Andrius Vytautas Attending Unavailable Giedraitis , Andrius Vytautas Attending Unavailable Giedraitis , Andrius Vytautas Attending Unavailable KAELICEO AHUJA Attending Unavailable EAGLE VAZQUEZ Attending Unavailable ELICEO GÓMEZ Attending Unavailable DIPTI ACEVEDO Attending Unavailable EAGLE VAZQUEZ Attending Unavailable ELICEO GÓMEZ Referring Unavailable KAELICEO AHUJA Attending Unavailable KAELICEO AHUJA Referring Unavailable KAELICEO AHUJA Attending Unavailable KAELICEO AHUJA Referring Unavailable RON KING Attending Unavailable JES MARTINEZ Attending Unavailable SIDNEY AMEZQUITA Attending Unavailable ELICEO GÓMEZ Referring Unavailable KAELICEO AHUJA Attending Unavailable ELICEO GÓMEZ Referring Unavailable NELSY SNYDER Attending Unavailable EAGLE VAZQUEZ Attending Unavailable ELICEO GÓMEZ Referring Unavailable RON KING Attending Unavailable ELICEO GÓMEZ Referring Unavailable EAGLE VAZQUEZ Referring Unavailable RON KING Referring Unavailable ELICEO GÓMEZ Attending Unavailable DIPTI ACEVEDO Attending Unavailable CARMEN COCHRAN Attending Unavailable RON KING Attending Unavailable DIPTI ACEVEDO Attending Unavailable CARMEN COCHRAN Attending Unavailable SIDNEY AMEZQUITA Attending Unavailable ELICEO GÓMEZ Attending Unavailable ELICEO GÓMEZ Referring Unavailable ELICEO GÓMEZ Attending Unavailable ELICEO GÓMEZ Referring Unavailable Allergies Allergy Classification Reported Allergen(s) Allergy Type Date of Onset Reaction(s) Facility risperiDONE (1 source) risperiDONE Drug Allergy 9 [facility] (20 sources) risperiDONE; Translations: [RisperDAL TABS] Drug Allergy 0 Intolerance, Other (See Comments) [facility] (1 source) oxyCODONE Drug Allergy [facility] (1 source) risperiDONE Drug Allergy [facility] (14 sources) POISON BRENDA EXTRACT; Translations: [POISON BRENDA EXTRACT] Drug Allergy 3 Rash [facility] (1 source) risperiDONE Drug Allergy [address] [facility] Repository (1 source) POISON BRENDA; Translations: [POISON BRENDA] Propensity to adverse reactions to drug (disorder) 2 [facility] Repository Medications Current Medications Medication Drug [...] / codeine phosphate 30 mg oral tablet (8 sources) Opioid Agonist Start: 01-24-2024 take 1 [...] 1 tablet by mouth every twelve hours [id number] actuat albuterol 0.09 mg/actuat metered dose [...] needed alendronic acid 70 mg oral tablet (4 sources) Bisphosphonate Start: 06-05-20 take 1 tablet [...] once daily. celecoxib 200 mg oral capsule (17 sources) Nonsteroidal Anti-inflammatory Drug Start: 01-07-20 take 1 capsule by mouth twice daily celecoxib (CELEBREX) 200 mg capsule take 1 capsule by mouth twice a day if needed 0 01/07/2024 Active Start: 06-18-2019 End: 02-18-2020 take 1 tablet by mouth once daily Celecoxib Discontinued 1 TAB PO Daily June 18, 2019 12:00am February 18, 2020 10:25am take 1 capsule by mo ut in the morning, then take 1 capsule [...] by mouth once daily. 168 hr cloNIDine 0.89372 mg/hr transdermal system (3 sources) Central alpha-2 Adrenergic Agonist Start: 3 cloNIDine (CATAPRES-TTS) 0.1 mg/[address] 1 patch on the skin once a week. New patch on Monday 0 09/27/2023 Active daridorexant (QUVIVIQ) 50 mg tablet (8 sources) daridorexant (QUVIVIQ) 50 mg tablet Take by mouth as directed. 0 Active Comment on above: Take by mouth as dir ected. daridorexant 50 mg tablet (4 sources) take 1 tablet by mouth once daily daridorexant 50 mg tablet Take 50 mg by mouth nightly. 0 Active [facility] (13 sources) [facility] Not-Taki ng Dexlansoprazole (Dexilant) 60 mg Capsule,Biphase Delayed Releas (4 sources) Start: 06-05-2023 take 1 capsule by mouth once daily Dexlansoprazole (Dexilant) 60 mg Capsule,Biphase Delayed Releas Active 60 MG PO Daily June 04, 2023 11:00pm Start: 06-05-2023 take 1 capsule by mo [facility] once daily Dexlansoprazole (Dexilant) 60 mg [...] ml enoxaparin sodium 100 mg/ml prefilled syringe (4 sources) Low Molecular Weight Heparin Start: 06-05-2023 inject 40 mg by subcutaneous injection once daily Enoxaparin Active 40 MG SUBCUT Daily June 05, 2023 12:00am estradiol 0.1 mg/ml vaginal cream (11 sources) Estrogen Start: 03-14-2024 estradiol (ESTRACE) 0.01 [...] 2020 10:25am eszopiclone 3 mg oral tablet (14 sources) Start: 06-05-2023 take 1 tablet by [...] puff(s) by in halation in the morning vbzatocncxb-yqiscltaf-stvqvfxr (TRELEGY ELLIPTA) 100-62.5-25 mcg blister with device Indications: Asthma, unspecified asthma severity, unspecified whether complicated, unspecified whether persistent Inhale 1 puff in the morning. 60 each 5 05/31/2022 Active take 1 puff(s) by in halation once daily fsoxkvzrdgc-pualcdyht-synwkefd (TRELEGY ELLIPTA) 100-62.5-25 mcg Inhale 1 Puff as instructed once daily. 0 Active take 1 puff(s) by in halation once daily Trelegy Ellipta 100-62.5-25 MCG/INH 1 puff Inhalation Once a day Not-Taking Comment on above: Inhale 1 Puff as ins tructed once daily. 1.5 ml fremanezumab-vfrm 150 mg/ml auto-injector (20 sources) Start: 07-19-2023 AJOVY AUTOINJECTOR 225 mg/1.5 mL auto-injector inject [...] inulin 200 mg / lactobacillus rhamnosus gg [id number] unt oral capsule (1 source) Start: End: take 1 capsule by mouth once daily lactobacillus rhamnosus (CULTURELLE) 10 billion cell -200 mg capsule Take 1 capsule by mouth once daily. 30 capsule 0 06/07/2022 07/07/2022 Active Comment on above: Take 1 capsule by [facility] once daily. iv contrast (will be [...] mg lisdexamfetamine dimesylate 50 mg oral capsule (20 sources) Central Nervous System Stimulant Start: 01-22-2024 VYVANSE 50 mg capsule Take 70 mg by mouth every afternoon. 0 01/22/2024 Active Start: 01-22-2024 take 1 capsule [...] above: Take 1 capsule by mo [facility] every afternoon. LORazepam 1 mg oral tablet (15 sources) Benzodiazepine Start: take 1 tablet by mouth once daily for anxiety LORazepam (ATIVAN) 1 MG tablet take 1 tablet by mouth once daily if needed for anxiety 0 07/19/2023 Active Start: 06-05-2023 take 1 mg by mouth twice daily Lorazepam Active 1 MG PO Twice daily June 05, 2023 12:00am take 1 tablet [facility] every twenty-four hours LORazepam 0.5 MG 1 tablet at bedtime as needed Orally Once a day Active omeprazole 40 mg delayed release oral capsule (20 sources) Proton Pump Inhibitor Start: 03-06-2024 take 1 capsule by mouth once daily omeprazole [address] capsule Indications: Wheeler grade D esophagitis Take 1 capsule by [...] days. traMADol hydrochloride 50 mg oral tablet (15 sources) Opioid Agonist Start: 08-09-2023 take 1 [...] 2018 1:17pm take 2 tablets by mo uth at [...] mg / caffeine 65 mg oral tablet (7 sources) Platelet Aggregation Inhibitor, Nonsteroidal Anti-inflammatory Drug, Central Nervous System Stimulant, Methylxanthine Start: 09-13-2017 End: 10-01-2018 take 1 tablet by mouth every four to six hours Aspirin-Acetaminop hen-Caffeine (Excedrin Migraine) 250-250-65 mg Tablet Discontinued 1 - 2 TAB PO EVERY 4-6 HOURS September 13, 2017 1:00am October 01, 2018 10:40am ALPRAZolam 1 mg oral tablet (7 sources) Benzodiazepine Start: 09-13-2017 End: 10-01-2018 take 1 tablet by mouth three times daily Alprazolam Discontinued 1 TAB PO Three times daily September 13, 2017 1:00am October 01, 2018 10:40am amitriptyline hydrochloride 25 mg oral tablet (7 sources) Tricyclic Antidepressant Start: 02-18-2020 End: 06-05-2023 [...] (Therapy completed) brexpiprazole 3 mg oral tablet (7 sources) Atypical Antipsychotic Start: 02-18-2020 End: 06-05-2023 [...] Antibacterial Start: 07-14-20 16 Rocephin 500 mg 08 Jul, 2016 500 mg cephalexin 500 mg oral capsule (7 sources) Cephalosporin Antibacterial Start: 09-20-20 17 End: 10-01-20 18 take 1 capsule by mouth every eight hours Cephalexin (Keflex) 500 mg capsule Discontinued 500 MG PO Q8H 21 September 20, 2017 1:00am October 01, 2018 10:40am cetirizine hydrochloride 5 mg oral tablet (8 sources) Histamine-1 Receptor Antagonist Start: 10-15-20 End: 12-19-19 19 Cetirizine Discontinued 1 TAB PO As Directed October 15, 2018 1:00am December 19, 2018 1:13pm take 1 tablet by mouth once arleen [...] breakfast docusate sodium 50 mg / sennosides, prison 8.6 mg oral tablet (7 sources) Start: 2016 End: 2017 take 2 tablets by mouth twice daily Sennosides-Docusate Sodium (Dok Plus) 8.6-50 mg Tablet Discontinued 2 TAB PO Twice daily 40 September 20, 2017 1:00am October 01, 2018 10:42am 24 hr fexofenadine hydrochloride 180 mg / pseudoephedrine hydrochloride 240 mg extended release oral tablet (7 sources) alpha-Adrenergic Agonist, Histamine-1 Receptor Antagonist Start: 2018 End: 2018 take 1 tablet by mouth once daily in the morning, then take 1 tablet by mouth every twenty-four hours Fexofenadine-Pseudoeph edrine (Ember-D 24 Hour) 180-240 mg Tablet Extended Release 24 Hr Discontinued 1 TAB PO Every morning December 19, 2018 1:00am June 18, 2019 3:04pm fluconazole 150 mg oral tablet (7 sources) Azole Antifungal Start: 2019 End: 2022 Fluconazole (Diflucan) 150 mg tablet Discontinued 150 MG PO Once 1 February 18, 2020 12:00am June 05, 2023 10:13am take one PO, if still symptomatic then take another pill in 72 hrs fluticasone propionate 0.05 mg/actuat metered dose nasal spray (20 sources) Corticosteroid Start: 2017 End: 2022 Fluticasone Propionate (Flonase Allergy Relief) 50 mcg/actuation [place],Suspension Discontinued 2 SPRAY INTRANASAL Daily October 15, 2018 1:00am June 18, 2019 3:04pm Comment on above: Use 1 [place] in each nostril once daily. Fluticasone Propion-Salmeterol (14 sources) Corticosteroid, beta2-Adrenergic Agonist Start: 2018 End: [...] shake. hydrOXYzine hydrochloride 50 mg oral tablet (14 sources) Antihistamine Start: 02-18-2020 End: 06-05-2023 take 50 mg by mouth once daily at bedtime Hydroxyzine Hcl Discontinued 50 MG PO Daily at bedtime February 18, 2020 12:00am Ashley 31st, 2023 10:13am Start: 12-19-2018 End: 06-18-2019 take 25 mg by mouth twice daily Hydroxyzine Hcl Discontinued 25 MG PO Twice daily December 19, 2018 1:00am June 18, 2019 3:04pm lactobacillus rhamnosus gg [id number] unt oral capsule (20 sources) Start: 06-09-2022 [...] above: Take 1 capsule by mo [facility] once daily. lamoTRIgine 200 mg oral [...] tablet by yancy th once daily lamoTRIgine 25 MG tablet Take 1 tablet by mouth daily. Active take 2 tablets by mo ut in the morning lamoTRIgine (LaMICtal) 25 mg tablet Take 2 tablets (50 mg total) by mouth in the morning. 0 Active Comment on above: Take 25 mg by mouth once daily. linaclotide (7 sources) Guanylate Cyclase-C Agonist Start: 10-01-2018 End: [...] mL lurasidone hydrochloride 40 mg oral tablet (7 sources) Atypical Antipsychotic Start: 06-18-2019 End: 02-18-2020 take 1 tablet by mouth once daily Lurasidone (Latuda) 40 mg tablet Discontinued 60 MG PO Daily June 18, 2019 12:00am February 18, 2020 10:26am methylphenidate hydrochloride 20 mg oral tablet (7 sources) Central Nervous System Stimulant Start: 09-13-2017 [...] to surgery. mirtazapine 15 mg oral tablet (7 sources) Start: End: take 2 tablets by mouth once daily Mirtazapine (Remeron) 15 mg Tablet Discontinued 30 MG PO Daily December 19, 2018 1:00am February 18, 2020 10:26am montelukast 10 mg oral tablet (7 sources) Leukotriene Receptor Antagonist Start: End: take [...] Comment on above: Take 2 tablets by [facility] as directed. Take 2 tablet at 6pm, 7pm, and 11pm the evening prior to surgery. nitrofurantoin, macrocrystals 25 mg / nitrofurantoin, monohydrate 75 mg oral capsule (10 sources) Nitrofuran Antibacterial Start: End: take 1 capsule by mouth twice daily at mealtime Nitrofurantoin Monohyd/M-Cryst (Macrobid) 100 mg capsule Discontinued 100 MG PO Twice daily 10 February 18, 2020 12:00am June 05, 2023 10:13am must administer with a meal/food Comment on above: Take 1 capsule by [facility] twice daily. nystatin [id number] unt/ml topical cream (20 sources) Polyene Antifungal [...] chloride 10 mg extended release oral tablet (7 sources) Cholinergic Muscarinic Antagonist Start: 10-01-20 18 End: 06-19-20 19 take 1 tablet by mouth once daily Oxybutynin Chloride (Ditropan Xl) 10 mg Tablet Extended Release 24hr Discontinued 10 MG PO Daily October 01, 2018 1:00am June 19, 2019 1:23pm phenazopyridine hydrochloride 200 mg oral tablet (7 sources) Start: 02-18-20 End: 06-05-20 take 1 tablet by mouth every eight hours Phenazopyridine (Pyridium) 200 mg tablet Discontinued 200 MG PO Q8H 6 2 February 18, 2020 12:00am June 05, 2023 10:13am polyethylene glycol 3350 84827 mg powder for oral solution (3 sources) [...] 15, 2018 3:24pm take 2 capsules by [facility] three times daily pregabalin 25 MG capsule [...] Comment on above: take 1 tablet by [facility] once daily psyllium 520 mg oral capsule (3 sources) Start: 12-27-2021 End: 02-08-2022 psyllium Husk (METAMUCIL) 0.52 gram capsule Take 1 capsule by mouth as directed. As needed for constipation 0 12/27/2021 02/08/2022 Discontinued (Course of therapy completed) Comment on above: Take 1 capsule by mo [facility] as directed. As needed for constipation QUEtiapine 200 mg oral tablet (7 sources) Atypical Antipsychotic Start: 10-01-2018 End: 12-19-2018 [...] above: Take 2 tablets by mo [facility] three times daily as needed. simethicone [...] on above: Take 1,000 mcg by mo [facility] once daily. vortioxetine 10 mg oral [...] Episodic Conditions associated with dizziness or vertigo (10 sources) Postural dizziness; Translations: [Dizziness and giddiness] 02-18-2020 Episodic Esophageal disorders (20 sources) Gastroesophageal reflux disease; Translations: [Gastro-esophageal reflux disease without esophagitis] Onset: 1 10-15-2021 Chronic Esophageal disorders (1 source) Esophagitis; Translations: [Wheeler grade D esophagitis] 04-12-2024 Episodic Essential hypertension [...] 2 Chronic Other aftercare (1 source) Other manager intermediate (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; Translations: [OTH [facility] CURRENT DRUG THERAPY] Onset: 3 Episodic Other connective tissue disease (5 sources) Pain in right foot; Translations: [PAIN IN RIGHT FOOT] Onset: 3 Episodic Other disorders of stomach and duodenum (20 sources) Gastroparesis syndrome; Translations: [Gastroparesis] Onset: 2 10-08-2020 Episodic Other disorders of stomach and duodenum (4 sources) Gastroparesis; Translations: [Gastroparesis] Onset: 0 Episodic [...] intestinal disorder, unspecified] Episodic Other gastrointestinal disorders (2 sources) Disorder of gastrointestinal tract; Translations: [Other specified [...] 2 07-07-2022 Chronic Other upper respiratory infections (7 sources) Upper respiratory infection; Translations: [Acute upper [...] specified] Onset: 2 02-18-2020 Episodic Viral infection (7 sources) Disease caused by 2019-nCoV; Translations: [COVID-19] [...] 05-10-2022 Resolved: 05-10-2022 Episodic Nonspecific chest pain (14 sources) Chest pain; Translations: [Chest pain, unspecified] [...] [Other constipation] Onset: 03-28-2022 04-05-2022 Episodic Other nervous system disorders (20 sources) [...] Name Value Interpretation Reference Range Facility US ABDOMEN LIMITEDon US ABDOMEN LIMITED EXAM: Abdominal Ultrasound, Limited: REASON FOR EXAM: Lump. COMPARISON: None. TECHNIQUE: Longitudinal and transverse grayscale and color Doppler images of the left lower quadrant obtained. FINDINGS: There are two separate areas of concern. The first area is hypoechoic with posterior acoustic enhancement and enhancement of the posterior wall with thin septations measuring 1.05 x 0.64 x 0.82 cm, subcutaneous. No visible tract or extension to the skin surface. There is internal debris and an echogenic rim. The second lesion measures 1.96 x 1.16 x 1.45 cm. It is predominantly hyperechoic with small hypoechoic internal components. The history states abdominal surgery, remote, approximately two years previous. IMPRESSION: 1. A hypoechoic predominantly cystic lump most likely represents a small complex subcutaneous fluid collection or sebaceous cyst. No increased surrounding vascularity. Chronic hematoma and phlegmon are in the differential. 2. A smaller adjacent hyperechoic focus is most consistent with a lipomatous lesion or chronic fat necrosis. Other etiologies are in the differential. RECOMMENDATION: Followup ultrasound in four to six weeks. *This report is generated using voice recognition reporting (Cinemur). On occasion [employer] erroneously drops words from the report or replaces the spoken word with similar sounding words. Please call with any questions/concerns regarding this report.* Dictated and transcribed 07/16/2024/leydi This report has been electronically signed and approved by the interpreting radiologist. Electronically Signed Dipti Lockhart II, M.D. 2024-07-16 10:23:22 Normal Not Available 36on 07-12-2024 36 Left voicemail askin g to reschedule [facility] follow up appointment to 07/26 at 10:00 am. Normal [facility] 36on 06-17-2024 36 Rescheduled cancelle d [facility] follow up appointment for 06/26 at 9:00 am. Normal [facility] MR ankle RT wo conon 024 MR ankle RT wo con [facility] [place] [address] MRI Report Signed Patient: Mary Leal MR#: [id number] : 1970 Acct:[id number] Age/Sex: 54 / F ADM Date: 04/30/24 Loc: [facility] Room: [facility] Attending Dr: Sade Felix DPM, MS Copies to: Sade Felix DPM, MS [...] Andres Bullard M.D.04/30/2024 3:14 PM Dictation Location: [place] [address] Transcribed By: [facility] 04/30/24 1514 Dictated By: Andres Bullard DO 04/30/24 1503 Signed By: 04/30/24 1514 Normal [facility] 29on 04-28-2024 29 Encounter addended b y: Dick Mann MD on: 05/07/2024 7:26 PM Actions taken: Charge Capture section accepted Normal [facility] Documentationon 04-17-2024 Documentation [id number] Darrian Leal 1970 F Date Provider Department Center 04/17/2024 [id number] CASTREJON [facility] Gerardo Heal No family history on file Normal [facility] Letter (Out)on 04-17-2024 Letter (Out) [id number] Darrian Leal en 1970 F Date Provider Department Center 04/17/2024 [id number] COVARRUBIAS [facility] Gerardo Heal No family history on file Normal [facility] DIAGNOSTIC UPPER ENDOSCOPYon 04-12-2024 [facility] Patient Name: Mary Leal Procedure Date: 04/12/2024 11:46 AM Date of : 1970 Admit Type: Outpatient Age: 53 Room: Endo 3 Gender: Female Note Status: Finalized Attending MD: Milagros Franco MD, PHD, [id number] Procedure: Upper GI endoscopy Attending Participation: I personally performed the entire procedure. Indications: Dysphagia, Heartburn Providers: Milagros Franco MD, PHD (Doctor), Stacie Johns RN (Nurse), Nawaf Pinzon Dry Cleaner Hand (Dry Cleaner Hand), Everett Maria APRN-BECCA (Anesthesia Staff) Referring MD: [...] verified by the physician, the nurse, the drafter patent and the sonography technician in the procedure room. Mental Status [...] oxygen saturations were monitored continuously. The Endoscope ([id number]) was introduced through the mouth, and advanced [...] examined (more content not included)... LAB, [facility] Radiology Study observation (narrative) [facility] SURG PATH REQUESTon 04-12-20 Case Report Normal [facility] Comment on above: Result Comment: Surg ical Pathology Report Case: [id number] Authorizing Provider: Milagros Franco MD, Collected: 04/12/2024 12:48 PM PhD Ordering Location: Endoscopy Outpatient Care Received: 04/12/2024 12:57 PM [place] Pathologist: Manish Tom MD Specimens: A) - TISSUE, gastric biopsy r/o HP evaluate for eosiniphils (large forceps) B) - TISSUE, GE Junction r/o Barrets (large forceps) Performed By: #### S URGP #### [facility] (DEFAULT) [address] [place], [place] [id number] Clinical History Preop Diagnosis: Wheeler Grade D esophagitis [K20.80]. Early satiety [R68.81]. Unintentional weight loss [R63.4]. Gastroparesis [K31.84]. Medical History: Gastroesophageal reflux disease. Asthma. Benign essential hypertension. History of colectomy. Gastroparesis. Arthritis. Depression. Migraine. Constipation. [facility] Comment on above: Performed By: #### S URGP #### [facility] (DEFAULT) [address] [place] [address] Gross Description [facility] Comment on above: Result Comment: The [...] dimension. TE 1 Lab Use Only: JobID [id number] Grosser for this case was: Carmen Maradiaga Performed By: #### S URGP #### [facility] (DEFAULT) [address] [place] [address] Microscopic Description A microscopic examination was performed. [facility] Comment on above: Performed By: #### S URGP #### [facility] (DEFAULT) [address] [address] Pathologic Diagnosis [facility] Comment on above: Result Comment: A. S tomach, biopsy: Active erosive esophagitis. No Helicobacter pylori organisms identified. B. GE junction, biopsy: Gastroesophageal squamocolumnar junctional mucosa with reflux pattern of injury. No Vega's specialized columnar epithelium (intestinal metaplasia) identified. Performed By: #### S URGP #### [facility] (DEFAULT) [address] [address] Professional Interpretation Performed at: Normal [facility] Comment on above: Result Comment: [facility] For Immediate Release to [facility] Yes [address] [address] Performed By: #### S URGP #### [facility] (DEFAULT) [address] [place] [address] 36on 04-10-2024 36 Left voicemail to [facility] to schedule Inspire follow up appointment following sleep study on 04/28. Offered 06/05 at 8:30 am or 4:00 pm OR 06/12 at 8:30 am. Normal [facility] Telephoneon 04-10-2024 Telephone [id number] Darrian Leal en 1970 F Date Provider Department Center 04/10/2024 PAULINE SANTACRUZ [facility] SLEEP [facility] No family history on file Reason for Visit and Comments: Appointment [375] [facility] Follow-Upon 04-03-2024 Follow-Up [id number] Darrian Leal en 1970 Date Provider Department [place] 04/03/2024 [facility] No family history on file Level of Service:35282 [place] OFFICE/OUTPATIENT ESTABLISHED MOD MDM 30 MIN Reason for Visit and Comments: Follow-up [732139] - Pt has the Inspire and is here for a follow up. She states it is unbelievable how well it is working for her. She is sleeping through the night, which she hasn't done for years. She is here for a few small adjustments, such as moving it from 6 hours of sleep a night to 8. Normal [facility] CBC AND ELECTRONIC DIFFon Basophils (Bld) [#/Vol] 0.04 10*3/uL Normal 0.00-0.15 [facility] Comment on above: Performed By: #### L AB980 #### [facility] (DEFAULT) [address] [place] [address] Basophils/100 WBC (Bld) 0.6 % Normal [facility] Comment on above: Performed By: #### L AB980 #### [facility] (DEFAULT) [address] [place] [address] DIFF STATUS Electronic Differential Normal [facility] Comment on above: Performed By: #### L AB980 #### [facility] (DEFAULT) [address] [place] [address] Eosinophils (Bld) [#/Vol] 0.08 10*3/uL Normal 0.00-0.42 [facility] Comment on above: Performed By: #### L AB980 #### [facility] (DEFAULT) [address] [place] [address] Eosinophils/100 WBC (Bld) 1.2 % Normal [facility] Comment on above: Performed By: #### L AB980 #### [facility] (DEFAULT) [address] [place] [address] Hematocrit (Bld) [Volume fraction] 40.1 % Normal 34.9-44.3 [facility] Comment on above: Performed By: #### L AB980 #### [facility] (DEFAULT) [address] [address] Hemoglobin (Bld) [Mass/Vol] 12.6 g/dL Normal 11.4-15.2 [facility] Comment on above: Performed By: #### L AB980 #### [facility] (DEFAULT) [address] [place] [address] Immature Grans % 0.5 % Normal [facility] Comment on above: Performed By: #### L AB980 #### [facility] (DEFAULT) [address] [address] Immature Grans Absolute < Normal <=0.08 [facility] Comment on above: Performed By: #### L AB980 #### [facility] (DEFAULT) [address] [place] [address] Lymphocytes (Bld) [#/Vol] 2.05 10*3/uL Normal 1.16-3.51 [facility] Comment on above: Performed By: #### L AB980 #### [facility] (DEFAULT) [address] [place] [address] Lymphocytes/100 WBC (Bld) 31.6 % Normal [facility] Comment on above: Performed By: #### L AB980 #### [facility] (DEFAULT) [address] [place] [address] MCV (RBC) [Entitic vol] 86.6 fL Normal 79.6-97.7 [facility] Comment on above: Performed By: #### L AB980 #### [facility] (DEFAULT) [address] [address] Mean Cell Hgb 27.2 pg Normal 25.9-33.9 [facility] Comment on above: Performed By: #### L AB980 #### [facility] (DEFAULT) [address] [address] Mean Cell Hgb Conc 31.4 g/dL Normal 31.4-35.9 [facility] Comment on above: Performed By: #### L AB980 #### [facility] (DEFAULT) [address] [address] Monocytes (Bld) [#/Vol] 0.47 10*3/uL Normal 0.22-0.87 [facility] Comment on above: Performed By: #### L AB980 #### [facility] (DEFAULT) [address] [address] Monocytes/100 WBC (Bld) 7.3 % Normal [facility] Comment on above: Performed By: #### L AB980 #### [facility] (DEFAULT) [address] [address] Nucleated RBC 0.0 /100 WBC Normal <=0.2 [facility] Comment on above: Performed By: #### L AB980 #### [facility] (DEFAULT) [address] [place] [address] Platelet mean volume (Bld) [Entitic vol] 9.3 fL Normal 8.5-12.2 [facility] Comment on above: Performed By: #### L AB980 #### [facility] (DEFAULT) [address] [place] [address] Platelets (Bld) [#/Vol] 370 10*3/uL Normal 150-393 [facility] Comment on above: Performed By: #### L AB980 #### [facility] (DEFAULT) [address] [place] [address] RBC (Bld) [#/Vol] 4.63 10*6/uL Normal 3.91-5.04 [facility] Comment on above: Performed By: #### L AB980 #### [facility] (DEFAULT) [address] [address] RBC Distribution 14.0 % Normal 10.8-14.9 [facility] Comment on above: Performed By: #### L AB980 #### [facility] (DEFAULT) [address] [address] Segs + Bands Auto 58.8 % Normal [facility] Comment on above: Performed By: #### L AB980 #### [facility] (DEFAULT) [address] [address] Segs + Bands,Absolute Auto 3.81 K/uL Normal 1.64-7.28 [facility] Comment on above: Performed By: #### L AB980 #### [facility] (DEFAULT) [address] [address] WBC (Bld) [#/Vol] 6.48 10*3/uL Normal 3.99-11.19 [facility] Comment on above: Performed By: #### L AB980 #### [facility] (DEFAULT) [address] [address] FERRITINon 03-06-2024 Ferritin [Mass/Vol] 9.1 ng/mL Normal 7.3-270.7 [facility] Comment on above: Performed By: #### T SHQR, FERIB #### [facility] (DEFAULT) [address] [place] [address] HEPATIC FUNCTION PANELon Albumin [Mass/Vol] 4.3 g/dL Normal 3.5-5.0 [facility] Comment on above: Performed By: #### H PAULO, IRBC #### [facility] (DEFAULT) [address] [place] [address] ALP [Catalytic activity/Vol] 87 U/L Normal 32-126 [facility] Comment on above: Performed By: #### H PAULO, IRBC #### [facility] (DEFAULT) [address] [place] [address] ALT [Catalytic activity/Vol] 28 U/L Normal 9-48 [facility] Comment on above: Performed By: #### Sukumar BATES, IRBC #### [facility] (DEFAULT) [address] [place] [address] AST [Catalytic activity/Vol] 27 U/L Normal 10-39 [facility] Comment on above: Performed By: #### H PAULO, IRBC #### [facility] (DEFAULT) [address] [address] Bilirubin [Mass/Vol] 0.4 mg/dL Normal <1.5 [facility] Comment on above: Performed By: #### H PAULO, IRBC #### [facility] (DEFAULT) [address] [address] Bilirubin.indirect [Mass/Vol] 0.1 mg/dL Normal <0.3 [facility] Comment on above: Performed By: #### H PAULO, IRBC #### [facility] (DEFAULT) [address] [address] Protein [Mass/Vol] 6.9 g/dL Normal 6.4-8.3 [facility] Comment on above: Performed By: #### H PAULO, IRBC #### [facility] (DEFAULT) [address] [place] [address] IRON/IRON BINDING/TRANSFERRI Non 03-06-2024 Iron [Mass/Vol] 55 ug/dL Normal 40-174 [facility] Comment on above: Performed By: #### H FP, IRBC #### [facility] (DEFAULT) [address] [place] [address] Iron Saturation 13 % Low 20-55 [facility] Comment on above: Performed By: #### H FP, IRBC #### [facility] (DEFAULT) [address] [place] [address] Total Iron Binding Capacity 440 mcg/dL High 250-425 [facility] Comment on above: Performed By: #### H FP, IRBC #### [facility] (DEFAULT) [address] [address] Transferrin [Mass/Vol] 352 mg/dL Normal 200-400 [facility] Comment on above: Performed By: #### H FP, IRBC #### [facility] (DEFAULT) [address] [address] MOLECULAR STOOL PARASITE GUEVARA Cindy 03-06-2024 Cryptosporidium Parvum/Hominis By Pcr Negative Normal Negative [facility] Comment on above: Order Comment: Colle [...] Performed By: #### S CPBP #### [facility] (DEFAULT) [address] [address] Entamoeba Histolytica By Pcr Negative Normal Negative [facility] Comment on above: Order Comment: Colle [...] Performed By: #### S CPBP #### [facility] (DEFAULT) [address] [address] Giardia Lamblia By Pcr Negative Normal Negative [facility] Comment on above: Order Comment: Colle [...] Performed By: #### S CPBP #### [facility] (DEFAULT) [address] [address] TSH W/FT4 REFLEXon TSH 1.986 uIU/mL Normal 0.550-4.780 [facility] Comment on above: Performed By: #### T SHQR, FERIB #### [facility] (DEFAULT) [address] [address] VITAMIN D (25-HYDROXY,TOTAL) on 03-06-2024 25-OH Vitamin D Total 22.2 ng/mL Low 30.0-100.0 [facility] Comment on above: Order Comment: Vitam in D values have been shown to be falsely decreased in lipemic samples and should be interpreted with caution. Result Comment: <10 Deficiency 10-29 Insufficiency 30-100 Optimal Level >100 Possible Toxicity Performed By: #### D 25OH #### [facility] (DEFAULT) [address] [address] BACTERIAL VAGINOSIS NAATon 0 02-27-2024 Interpretation and review of laboratory results Normal [facility] Lactobacillus crispatus+gasseri+riri senii + Gardnerella vaginalis + Atopobium vaginae rRNA JOSÉ MIGUEL+probe Ql (Vag fld) Negative Negative for bacterial vaginosis [facility] Lactobacillus crispatus+gasseri+riri senii + Gardnerella vaginalis + Atopobium vaginae rRNA JOSÉ MIGUEL+probe Ql (Vag fld) Negative Normal Negative for bacterial vaginosis [facility] Comment on above: Order Comment: Speci men Type: SWABOrdering Facility: [facility] Address: [address] [place] [address] Performed By: #### B VAMP, CVTV ####[facility] LABCLIA [id number] [place] [address] [place] BETY/TRICHOMONAS NAATon 0 02-27-2024 C. glabrata RNA JOSÉ MIGUEL+probe Ql (Vag fld) Negative Negative for Bety glabrata [facility] Bety sp DNA JOSÉ MIGUEL+probe Ql (Vag fld) Negative Negative for Bety species [facility] Interpretation and review of laboratory results Normal [facility] T. vaginalis DNA JOSÉ MIGUEL+probe Ql (Unsp spec) Negative Negative for Trichomonas vaginalis by amplification [facility] C. glabrata RNA JOSÉ MIGUEL+probe Ql (Vag fld) Negative Normal Negative for Bety glabrata [facility] Comment on above: Order Comment: Speci men Type: SWABOrdering Facility: [facility] Address: [address] [place] [address] Performed By: #### B VAMP, CVTV ####[facility] LABCLIA [id number] [place] [address] [place] Bety sp DNA JOSÉ MIGUEL+probe Ql (Vag fld) Negative Normal Negative for Bety species [facility] Comment on above: Order Comment: Speci men Type: SWABOrdering Facility: [facility] Address: [address] [place] [address] Performed By: #### B VAMP, CVTV ####[facility] LABCLIA [id number] [place] [address] [place] T. vaginalis DNA JOSÉ MIGUEL+probe Ql (Unsp spec) Negative Normal Negative for Trichomonas vaginalis by amplification [facility] Comment on above: Order Comment: Speci men Type: SWABOrdering Facility: [facility] Address: [address] [place] [address] Performed By: #### B CARMEN CVTV ####[facility] LABVERONIQUE [id number] [place]ANE[id number] [id number] [place] CNOVon 02-27-2024 CNOV Office Visit (SHERON ) MARY LEAL ([id number]) 1970 F Date Time Provider Department 02/27/24 10:00 AM FLOWER LOPEZ During your visit today, we recorded the following information about you: Pulse Blood pressure Weight Height 62/minute 146/93 69.9 kg 1.626 m Flower Lopez APRN.METAL FURRER 02/27/2024 10:40 AM Signed Female Pelvic Medicine [...] intermittently- somewhat improved. She has worked with [employer] rep re: interstim setting, now on program [...] you received about pain medications helpful? Yes Dirt Bike Racer offered:Patient declines OBJECTIVE: BP 146/93 Pulse 62 [...] Clear 4 (more content not included)... Normal [facility] UA DIP, URINE (POC)on 2023 BILIRUBIN UA (POCT) Negative Negative [facility] CLARITY UA (POCT) Clear [facility] COLOR UA (POCT) Yellow [facility] GLUCOSE UA (POCT) Negative Negative mg/dL [facility] Hemoglobin Ql (U) Negative Negative [facility] KETONE UA (POCT) Negative Negative mg/dL [facility] LEUKOCYTES UA (POCT) Negative Negative [facility] NITRITE UA (POCT) Negative Negative [facility] PH UA (POCT) 5.5 4.5 - 8.0 [facility] Protein Ql (U) Negative Negative mg/dL [facility] SPECIFIC GRAVITY UA (POCT) >=1.030 1.005 - 1.030 [facility] UROBILINOGEN UA (POCT) 0.2 Normal E.U./dL [facility] Location:[facility], [address] [place] [address], [address] [facility] POINT OF CARE [facility] 29on 02-07-2024 29 Addended by: NATHANAEL MENDOZA on: 02/07/2024 12:01 PM Modules accepted: Orders [facility] Follow-Upon 02-07-2024 Follow-Up [id number] Darrian Leal 1970 F Date Provider Department Center 02/07/2024 PAULINE SANTACRUZ [facility] SLEEP [facility] No family history on file Level of Service:72179 RI OFFICE/OUTPATIENT ESTABLISHED HIGH MDM 40 MIN Reason for Visit and Comments: Follow-up [082544] - Pt is here to activate her Inspire PAP. [facility] CNPDianne 01-27-2024 CNPN Telephone (GYNMN) MARY LEAL ([id number]) 1970 F Date Time Provider Department 01/27/24 RADHA DUNHAM [place] During your visit today, we recorded the following information about you: Radha Dunham MD 01/27/2024 10:54 AM Signed Shank Cutter Resident Telephone Encounter 01/27/2024 10:44 AM Call [...] Discussed with Dr. Mullins, Urogyn fellow physician clerk television production. Radha Dunham MD Obstetrics and Gynecology, PGY1 [...] PM Signed Received fax regarding letter from [employer] stating that on 01/29/24 the patient reported that they felt a zapping sensation in their rectal nerve . Asking that provider answer questions listed on document. Document scanned into [employer]. Thanks, Lili Montano RN 03/15/2024 11:27 AM Signed Called pt. Verified name/ Verified requested information and form faxed to [employer] @ [phone] Lili Matias RN March 15, 2024 11:27 AM Allergies As of Date: 01/27/2024 Noted Allergy Reaction RISPERIDONE 07/27/2021 5 - Intolerance Comments: Breast discharge POISON BRENDA EXTRACT 04/06/2023 2 - Rash Date Reviewed: 01/26/2024 Reviewed by: Dai Campuzano, RN - Fully Assessed Primary Visit Diagnosis:Post-operati [...] idiopathic cons (more content not included)... Normal [facility] ANES POSTPROC EVALon 024 ANES POSTPROC EVAL HNO ID: [id number] Author: BONI MURILLO MD Service: ? Author Type: Anesthesiologist Type: Anesthesia Postprocedure Evaluation Filed: 01/26/2024 09:51 Note Text: POST ANESTHESIA EVALUATION NOTE : 1970 Procedure Summary Date: 01/26/24 Room / Location: [address] [facility] Anesthesia Start: 727 Anesthesia Stop: 899 [...] January 26, 2024 TIME: 9:51 AM CSN: [id number] Normal [facility] ANES PRE-OPon 01-26-2024 ANES PRE-OP HNO ID: [id number] Author: BONI MURILLO MD Service: ? Author [...] January 26, 2024 TIME: 7:06 AM CSN: [id number] Normal [facility] BRIEF OP NOTon 01-26-2024 BRIEF OP NOT HNO ID: [id number] Author: SOFIYA MULLINS MD Service: Urogynecology Author Type: Fellow Type: Brief Op Note Filed: 01/26/2024 08:44 Note Text: BRIEF OPERATIVE / PROCEDURE NOTE LOG ID: [id number] Surgery/Procedure Date: 01/26/2024 Incision/Procedure Start Time: 7:54 AM Incision Close/Procedure End Time: 8:36 AM Surgeon(s)/Procedurali st(s) and Olive Packer(s): Surgeon(s) and Role: * Pam Wang MD [...] Implant Name Type Inv. Item Serial No. Applications System Analyst Lot No. LRB No. Used Action LEAD INTRSTIM MRI 28CM - [id number] Lead LEAD INTRSTIM MRI 28CM [employer] [id number] Left 1 Implanted INTERSTIM X RECHARGE FREE NEUROSTIMULATOR - [id number] Stimulator INTERSTIM X RECHARGE FREE NEUROSTIMULATOR [id number] [employer] Left 1 Implanted Pre-Op/Pre-Procedure Diagnosis: urinary retention, urgency, frequency and nocturia Post-Op/Post-Procedure Diagnosis: same SIGNATURE: Sofiya Mullins MD DATE: January 26, 2024 PATIENT NAME: Mary Leal TIME: 8:42 AM PAGER/CONTACT #: Pager [phone] Normal [facility] HISTORY PHYSICALon HISTORY PHYSICAL HNO ID: [id number] Author: SOFIYA MULLINS MD Service: Urogynecology Author [...] VTE Prophylaxis/An (more content not included)... Normal [facility] NURSING PROGon 01-26-2024 NURSING PROG HNO ID: [id number] Author: DAI CAMPUZANO, RN Service: Nursing Author Type: Registered Nurse Type: Nursing Progress Note Filed: 01/26/2024 09:51 Note Text: 0923 Paged PACU Resident M22-30 Elvis- Could you please place an order for a one time dose of [place] [phone] Paged PACU Resident M22-30 Elvis- Could you please place an order for a one time dose of her homegoing [place]ycod[place]? [place] [phone] Normal [facility] NURSING PROG HNO ID: [id number] Author: CATRACHO PIERRE RN Service: ? Author Type: Registered Nurse Type: Nursing Progress Note Filed: 01/26/2024 06:41 Note Text: Nursing Progress Note Topic of Note: Daily Note PATIENT NAME: Mary Leal Patient Location: Main - Periop OR/Main - Periop OR Room: Main - Periop OR (M023-37) PAGE SENT: Akiko Wang and Resident casino floorperson-Pt in M23-37 Mary Leal will need informed consent and H AND P for surgery this morning. Dorinda, Catracho [phone] This note was completed by: Catracho Pierre [facility] OPERATIVE NOon 01-26-2024 OPERATIVE NO HNO ID: [id number] Author: PAM WANG MD Service: Urogynecology Author Type: Physician Type: Operative Report Filed: 01/29/2024 10:50 Note Text: OPERATIVE/PROCEDURE REPORT LOG ID: [id number] Surgery/Procedure Date: 01/26/2024 Incision/Procedure Start Time: 7:54 AM Incision Close/Procedure End Time: 8:36 AM Surgeon(s)/Procedurali st(s) and Olive Packer(s): Surgeon(s) and Role: * Pam Wang MD [...] Implant Name Type Inv. Item Serial No. Applications System Analyst Lot No. LRB No. Used Action LEAD INTRSTIM MRI 28CM - [id number] Lead LEAD INTRSTIM MRI 28CM [employer] [id number] Left 1 Implanted INTERSTIM X RECHARGE FREE NEUROSTIMULATOR - [id number] Stimulator INTERSTIM X RECHARGE FREE NEUROSTIMULATOR [id number] [employer] Left 1 Implanted Pre-Op/Pre-Procedure Diagnosis: [...] the S3 foramen until the marker was fpc through the bone. The sacral lead was [...] and impedances (more content not included)... Normal [facility] HISTORY PHYSICALon HISTORY PHYSICAL HNO ID: [id number] Author: MAX MARROQUIN PA-C Service: ? Author Type: Physician Olive Packer Type: H&P Filed: 01/25/2024 09:25 Note Text: PREANESTHESIA CONSULT CLINIC TELEHEALTH VISIT SERVICE DATE: 01/25/2024 SERVICE TIME: 9:02 AM Patient has been identified by name and date of : Yes Reason for contact: PACC visit Accompanied by: Self This is a virtual visit using [employer] Video Visit. It required patient-provider interaction for the medical decision making as documented below. I have communicated my name and active licensure. The patient's identity and physical location were verified at the time of this visit. Either the patient or their legal sales representative education courses has been informed of the risks and [...] using inspire to get activated 02/07/2024 ) [id number] Score: Age: <65 Sex: female CHF history: No Hypertension history: Yes Stroke/TIA/thromboembo lism history: No Vascular disease history: No Diabetes history: No [id number] Score: 2 ANESTHESIA FINDINGS: Intubation History: No [...] PAST SURGICAL HIST (more content not included)... [facility] Hussain 12-25-2023 [facility] Telephone (GYNMN) MARY LEAL ([id number]) 1970 F Date Time Provider Department 12/25/23 PAM WANG GYNNV During your visit today, we recorded the following information about you: [facility] 12/25/2023 2:54 PM Signed Reason for call: [...] distance health visit in this department: 10/25/2021 Supervisor [employer]ring [employer] Boxing, Nurse Next visit in this department: 01/25/2024 [...] Status:Closed by STACIE GONZALEZ on 12/25/23 Normal [facility] BASIC METABOLIC PANLon 12-20 Anion gap [Moles/Vol] 6 mmol/L Normal 5-15 [facility] Comment on above: Performed By: #### B MP #### [facility] ([id number]) [address], [address] [place] [address] Calcium [Mass/Vol] 9.3 mg/dL Normal 8.5-10.5 [facility] Comment on above: Performed By: #### B MP #### [facility] ([id number]) [address], [address] [place] [address] Chloride [Moles/Vol] 105 mmol/L Normal 98-109 [facility] Comment on above: Performed By: #### B MP #### [facility] ([id number]) [address], [address] [place] [address] CO2 [Moles/Vol] 28 mmol/L Normal 22-32 [facility] Comment on above: Performed By: #### B MP #### [facility] ([id number]) [address], [address] [place] [address] Creatinine [Mass/Vol] 0.60 mg/dL Normal 0.40-1.00 [facility] Comment on above: Result Comment: METH OD TRACEABLE TO IDMS STANDARD Performed By: #### B MP #### [facility] ([id number]) [address], [address] [place] [address] eGFR (CKD-EPI) NON-RACE DEPENDENT >90 Normal >59 [facility] Comment on above: Result Comment: Reported eGFR is based on the CKD-EPI 2020 equation that does not use a race coefficient. Performed By: #### B MP #### [facility] ([id number]) [address], [address] [place] [address] Glucose [Mass/Vol] 85 mg/dL Normal 65-99 [facility] Comment on above: Performed By: #### B MP #### [facility] ([id number]) [address], [address] [place] [address] Potassium [Moles/Vol] 4.2 mmol/L Normal 3.5-5.0 [facility] Comment on above: Performed By: #### B MP #### [facility] ([id number]) [address], [address] [place] [address] Sodium [Moles/Vol] 139 mmol/L Normal 134-146 [facility] Comment on above: Performed By: #### B MP #### [facility] ([id number]) [address], [address] [place] [address] Urea nitrogen [Mass/Vol] 14 mg/dL Normal 5-23 [facility] Comment on above: Performed By: #### B MP #### [facility] ([id number]) [address], [address] [place] [address] Basic Metabolic Panelon 12-07 Anion gap [Moles/Vol] 6 mmol/L 5 - 15 mmol/L [facility] Calcium [Mass/Vol] 9.3 mg/dL 8.5 - 10. 5 mg/dL [facility] Chloride [Moles/Vol] 105 mmol/L 98 - 10 9 mmol/L [facility] CO2 [Moles/Vol] 28 mmol/L 22 - 32 mmol/L [facility] Creatinine [Mass/Vol] 0.60 mg/dL 0.40 - 1.00 mg/dL [facility] Comment on above: METHOD TRACEABLE TO IDLA STANDARD eGFR (CKD-EPI)non-race dependent - PINF [facility] Comment on above: Reported eGFR is based on the CKD-EPI 2020 equation that does not use a race coefficient. Glucose [Mass/Vol] 85 mg/dL 65 - 99 mg/dL [facility] Potassium [Moles/Vol] 4.2 mmol/L 3.5 - 5.0 mmol/L [facility] Sodium [Moles/Vol] 139 mmol/L 134 - 146 mmol/L [facility] Urea nitrogen [Mass/Vol] 14 mg/dL 5 - 23 mg/dL [facility] [employer] 36on 12-05-2023 36 Scheduled Inspire activation appointment 02/06 at 9:15 am. [facility] Hussain 11-27-2023 CNPN Telephone (WCTRMN) MARY LEAL ([id number]) 1970 F Date Time Provider Department 11/27/23 PAM WANG TRMN During your visit today, we recorded the following information about you: Amber Trimble 11/27/2023 9:32 AM Signed Patient: Mary Leal : 1970 Provider: Pam Wang MD Caller Phone #: [phone] (home) [phone] (cell) Reason for call: boyfriend pulled out [...] PNE stimulator stopped connecting so Kim of Vertigo said to remove it. She removed the [...] urge [N39.41] Order(s):SURGICAL REQUEST - ELECTIVE (06/2020) [[id number]] Order #: [id number]: 1 Prescriptions as of 11/27/2023 - ARIPiprazole [...] Encounter Status:Closed by PAM WANG on 11/27/23 Primitivo [facility] Hussain 11-25-2023 KWESIN Telephone (GYNMN) ELVISMARY Ludmila ([id number]) 1970 F Date Time Provider Department 11/25/23 RADHA DUNHAM GYNMN During your visit today, we recorded the following information about you: Radha Dunham MD 11/25/2023 2:43 PM Signed Shank Cutter Resident Telephone Encounter 11/25/2023 2:40 PM Call [...] adequately. Discussed with Dr. Mullins, Urogyn fellow clerk television production. Radha Dunham MD Obstetrics and Gynecology, PGY1 Allergies As of Date: 11/25/2023 Noted Allergy Reaction RISPERIDONE 07/27/2021 5 - Intolerance Comments: Breast discharge POISON BRENDA EXTRACT 04/06/2023 2 - Rash Date Reviewed: 10/10/2023 Reviewed by: José Luis Thorpe, MAKI - Fully Assessed Reason for Visit: Patient Question [2278] Prescriptions as of 11/25/2023 - ARIPiprazole monohydrate [...] Status:Closed by RADHA DUNHAM on 11/25/23 Normal [facility] hepatobiliary w pharmon 0 11-23-2023 [place] hepatobiliary w pharm [facility] [place] [address] Nuclear Medicine Report Signed Patient: Mary Leal MR#: [id number] : 1970 Acct:[id number] Age/Sex: 53 / F ADM Date: 11/23/23 Loc: [place] Room: Type: [facility] Attending Dr: Eagle Vazquez DO Copies to: Quinton Melendez Jr, DO Eagle Vazquez DO Ordering Provider: Eagle Vazquez DO Date of Service: 11/23/23 [place] hepatobiliary w pharm: RUQ pain, Nausea HIDA [...] is 68%. Normal is greater than 40%. NM/NM hepatobiliary w pharm IMPRESSION: Normal HIDA scan. Impression dictated by: Quinton Melendez Jr., D.O.11/23/2023 11:56 AM Dictation Location: [place] [address] Transcribed By: 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 #:[id number] [] ondansetron orally disintegrating 4 mg tab(s) [...] (GAS RE (more content not included)... Normal [facility] BI MAMMOGRAM SCREENING TOMOS YNTHESIS [...] IS VERY IMPORTANT TO YOUR HEALTH. THE [place] GUIDELINES RECOMMEND THAT WOMEN 40 [...] Denny, Normal Not Available Documentationon 10-12-2023 Documentation [id number] Darrian Leal 1970 F Date Provider Department Center 10/12/2023 KarliGIANA MORALES [facility] PSYCH Gerardo Heal No family history on file Normal [facility] CNOVon 10-10-2023 CNOV Office Visit (GUMAIN ) MARY LEAL ([id number]) 1970 F Date Time Provider Department 10/10/23 [...] PFSH obtained by others. Pam Wang MD Dirt Bike Racer offered: Patient declines. OBJECTIVE: BP 102/60 General: [...] would like to move forward with PNE. Apothesource packet given to patient today to review. [...] which included preparing to see the patient, [id number] patient care, completing clinical (more content not included)... Normal [facility] XR CHEST 2 VIEWSon 3 XR CHEST 2 VIEWS FINDINGS: Comparison, June 09, 2021. Intervertebral disc space device again identified lower cervical spine. Cardiopericardial silhouette normal. Pulmonary vasculature normal. Lungs clear. IMPRESSION: Impression: No acute cardiopulmonary disease. ELECTRONICALLY SIGNED BY: Angel Strauss MD Normal Not Available Orders Onlyon 09-19-2023 Orders Only [id number] Darrian Leal 1970 F Date Provider Department Center 09/19/2023 Karli-GIANA MORALES [facility] PSYCH Gerardo Heal No family history on file Normal [facility] CNPNon 09-12-2023 CNPN Telephone (WHQ) MARY LEAL ([id number]) 1970 F Date Time Provider Department 09/12/23 PAM WANG Leo During your visit today, we recorded the [...] which included preparing to see the patient, [id number] patient care, completing clinical documentation, obtaining and/or [...] Office will call to schedule cystoscopy. Urogynecology [facility] Main provided: Pam Wang Staff Physician, [...] Diagnosis:History of suburethral sling procedure [Z98.890] Order(s):CYSTOSCOPY [facility] [[id number]] Order #: [id number] Prescriptions as of 09/12/2023 - atenolol (TENORMIN) [...] Take 1,000 (more content not included)... Normal [facility] CNOVon 09-11-2023 CNOV Office Visit (UROSMN ) MARY LEAL ([id number]) 1970 F Date Time Provider Department 09/11/23 [...] Jenifer Barry RN 09/11/2023 11:37 AM Signed [facility] URODYNAMICS LAB URODYNAMIC [...] allergy: No Females- Is patient : No Dirt Bike Racer offered:Patient declines B/O UA: YES DIP: UROFLOWMETRY [...] Jairon Lai MD 09/11/2023 1:18 PM Signed [facility] CENTER FOR FEMALE [...] Jairon Lai MD Referring Provider: PAM WANG [[id number]] Allergies As of Date: 09/11/2023 Noted Allergy [...] milliliters subcut (more content not included)... Normal [facility] Orders Onlyon 09-01-2023 Orders Only [id number] Darrian Leal en 1970 F Date Provider Department [place] 09/01/2023 GIANA JAMES [facility] PSYCH Gerardo Heal No family history on file Normal [facility] [place] 08-23-2023 Behavioral Health Telemedicine [id number] Mary Leal 1970 Date Provider Department [place] 08/23/2023 GIANA JAMES [facility] No family history on file Level of Service:79057 RI OFFICE/OUTPATIENT ESTABLISHED MOD MDM 30-39 MIN Normal [facility] Orders Onlyon 08-21-2023 Orders Only [id number] Darrian Leal en 1970 Date Provider Department [place] 08/21/2023 GIANA JAMES [facility] PSYCH Gerardo [facility] No family history on file Normal [facility] BASIC METABOLIC PANELon 10-0 Anion gap [Moles/Vol] 1 mmol/L Low 8-12 Gen [facility] [employer] [facility] Comment on above: Performed By: #### 4 [id number], [id number], [id number], [id number] #### [facility] [address] Calcium [Mass/Vol] 9.2 mg/dL Normal 8.4-10.4 [facility] Comment on above: Performed By: #### 4 [id number], [id number], [id number], [id number] #### [facility] [address] [place], [place] [address] Chloride [Moles/Vol] 105 mmol/L Normal 96-109 [facility] [facility] Comment on above: Performed By: #### 4 [id number], [id number], [id number], [id number] #### [address] [place] [address] [place] CO2 [Moles/Vol] 32 mmol/L High 22-30 [facility] Comment on above: Performed By: #### 4 1146890, [id number], [id number], [id number] #### [address] [place], [place] [address] Creatinine [Mass/Vol] 0.67 mg/dL Normal 0.52-1.04 [facility] Comment on above: Performed By: #### 4 1338791, [id number], [id number], [id number] #### [facility] [address] [place] [address] GLOMERULAR FILTRATION RATE ML/MIN/1.73 SQ M.PREDICTED >90.0 Normal >=60.0 [facility] Comment on above: Result Comment: eGFR [...] Kidney Int Suppl.2013;3:1-150 Performed By: #### 4 8158625, [id number], [id number], [id number] #### [address] [place] [address] [facility] Glucose [Mass/Vol] 104 mg/dL High 65-100 [facility] Comment on above: Performed By: #### 4 [id number], [id number], 74412885, [id number] #### [address] [place], [place] [address] Potassium [Moles/Vol] 4.6 mmol/L Normal 3.6-5.1 [facility] Comment on above: Performed By: #### 4 9404212, 51601233, [id number], [id number] #### [address] [place] [address] [facility] Sodium [Moles/Vol] 138 mmol/L Normal 135-147 [facility] Comment on above: Performed By: #### 4 [id number], 65039436, 83119160, [id number] #### [address] [place], [place] [address] Urea nitrogen [Mass/Vol] 16 mg/dL Normal 8-26 [facility] Comment on above: Performed By: #### 4 6497550, 14252590, [id number], [id number] #### [facility] [address] [place] [address] Basic metabolic panel aka em 08-12-2023 Anion gap [Moles/Vol] 1 mmol/L Low 8 - 12 mmol/L [facility] Calcium [Mass/Vol] 9.2 mg/dL 8.4 - 10. 4 mg/dL [facility] Calcium hydrogen phosphate dihydrate crystals LM Ql (Urine sed) 16 mg/dL 8 - 26 mg/dL [facility] Chloride [Moles/Vol] 105 mmol/L 96 - 10 9 mmol/L [facility] CO2 (BldMV) [Moles/Vol] 32 mmol/L High 22 - 30 mmol/L [facility] Creatinine [Mass/Vol] 0.67 mg/dL 0.52 - 1.04 mg/dL [facility] GFR/1.73 sq M.predicted MDRD (S/P/Bld) [Vol rate/Area] - PINF [facility] Comment on above: eGFR calculation bas [...] 104 mg/dL High 65 - 100 mg/dL [facility] Interpretation and review of laboratory results Abnormal [facility] Potassium [Moles/Vol] 4.6 mmol/L 3.6 - 5.1 mmol/L [facility] Sodium [Moles/Vol] 138 mmol/L 135 - 147 mmol/L [facility] CBC AND DIFFERENTIALon 08-12 ABSOLUTE BASOPHIL 0.0 x10*3/uL Normal 0.0-0.1 [facility] Comment on above: Performed By: #### 4 [id number] #### [address] ABSOLUTE EOSINOPHIL 0.1 x10*3/uL Normal 0.1-0.3 [facility] Comment on above: Performed By: #### 4 [id number] #### [address] ABSOLUTE IMMATURE GRANULOCYTES 0.0 x10*3/uL Normal 0.0-0.1 [facility] Comment on above: Performed By: #### 4 [id number] #### [address] ABSOLUTE LYMPH 1.6 x10*3/uL Normal 1.2-3.3 [facility] Comment on above: Performed By: #### 4 [id number] #### [address] ABSOLUTE MONO 0.3 x10*3/uL Normal 0.2-0.6 [facility] Comment on above: Performed By: #### 4 [id number] #### [address] ABSOLUTE NEUTROPHIL 3.1 x10*3/uL Normal 2.4-6.6 [facility] Comment on above: Performed By: #### 4 [id number] #### [address] Basophils/100 WBC (Bld) 0.8 % Normal [facility] Comment on above: Performed By: #### 4 [id number] #### [address] Eosinophils/100 WBC (Bld) 2.7 % Normal [facility] Comment on above: Performed By: #### 4 [id number] #### [address] Erythrocyte distribution width (RBC) [Ratio] 13.0 % Normal 11.5-14.5 [facility] Comment on above: Performed By: #### 4 [id number] #### [address] Hematocrit (Bld) [Volume fraction] 37.5 % Normal 33.6-46.8 [facility] Comment on above: Performed By: #### 4 [id number] #### [address] Hemoglobin (Bld) [Mass/Vol] 11.8 g/dL Normal 11.7-15.8 [facility] Comment on above: Performed By: #### 4 [id number] #### [address] Immature granulocytes/100 WBC (Bld) 0.4 % Normal [facility] Comment on above: Performed By: #### 4 [id number] #### [address] Lymphocytes/100 WBC (Bld) 31.5 % Normal [facility] Comment on above: Performed By: #### 4 [id number] #### [address] MCH (RBC) [Entitic mass] 26.5 pg Low 27.5-32.3 [facility] Comment on above: Performed By: #### 4 [id number] #### [address] MCHC (RBC) [Mass/Vol] 31.5 g/dL Normal 30.7-35.5 [facility] Comment on above: Performed By: #### 4 [id number] #### [address] MCV (RBC) [Entitic vol] 84.3 fL Normal 80.2-99 [facility] Comment on above: Performed By: #### 4 [id number] #### [address] Monocytes/100 WBC (Bld) 5.4 % Normal [facility] Comment on above: Performed By: #### 4 [id number] #### [address] Neutrophils/100 WBC (Bld) 59.2 % Normal [facility] Comment on above: Performed By: #### 4 [id number] #### [address] NUCLEATED RED BLOOD CELLS AUTO 0.0 % Normal 0.0-1.0 [facility] Comment on above: Performed By: #### 4 [id number] #### [address] PLATELET COUNT 299 x10*3/uL Normal 150-400 [facility] Comment on above: Performed By: #### 4 [id number] #### [address] RED BLOOD CELL COUNT 4.45 x10*6/uL Normal 3.60-5.20 [facility] Comment on above: Performed By: #### 4 [id number] #### [address] WHITE BLOOD CELLS 5.2 x10*3/uL Normal 4.3-10.3 [facility] Comment on above: Performed By: #### 4 [id number] #### [address] CBC with differentialOrdered By: Background Lab on 08-12-2023 Absolute Immature Granulocytes 0.0 [facility] Age [Time] 84.3 fL 80.2 - 99 fL [facility] Age [Time] 26.5 pg Low 27.5 - 32.3 pg [facility] Age [Time] 31.5 g/dL 30.7 - 35.5 g/dL [facility] B. burgdorferi IgM IB Ql (CSF) 31.5 % [facility] Basophils (Bld) [#/Vol] 0.0 10*3/uL [facility] Basophils/100 WBC (Body fld) 0.8 % [facility] Eosinophils (Bld) [#/Vol] 1.6 10*3/uL [facility] Eosinophils (Bld) [#/Vol] 0.3 10*3/uL [facility] Eosinophils (Bld) [#/Vol] 0.1 10*3/uL [facility] Eosinophils/100 WBC (Bld) 2.7 % [facility] Erythrocyte distribution width (RBC) [Ratio] 13.0 % 11.5 - 14.5 % [facility] Hematocrit (Bld) [Volume fraction] 37.5 % 33.6 - 46.8 % [facility] Hexanoylglycine (U) [Moles/Vol] 11.8 g/dL 11.7 - 15.8 g/dL [facility] Immature granulocytes/100 WBC (Bld) 0.4 % [facility] Interpretation and review of laboratory results Abnormal [facility] Monocytes/100 WBC (Bld) 5.4 % [facility] Neurotensin (P) [Mass/Vol] 59.2 % [facility] Neutrophils (Bld) [#/Vol] 3.1 10*3/uL [facility] Nucleated RBC/100 WBC (Bld) [Ratio] 0.0 % 0.0 - 1.0 % [facility] Platelets (Bld) [#/Vol] 299 10*3/uL [facility] RBC (Bld) [#/Vol] 4.45 10*6/uL Crunched [facility] WBC (Bld) [#/Vol] 5.2 10*3/uL [facility] CT ABDOMEN PELVIS WITH IV CO [...] 20 RAC Omni 300 100 ml Normal [facility] HEPATIC FUNCTION PANELon Albumin [Mass/Vol] 4.0 g/dL Normal 3.5-5.0 [facility] Comment on above: Performed By: #### 4 [id number], [id number], [id number], [id number] #### [address] [address] ALK PHOS 104 U/L Normal 24-126 [facility] Comment on above: Performed By: #### 4 0394281, [id number], [id number], [id number] #### [address] [address] ALT [Catalytic activity/Vol] 50 U/L High 4-35 [facility] Comment on above: Performed By: #### 4 2282710, 36269991, 21563449, [id number] #### [address] [address] AST [Catalytic activity/Vol] 59 U/L High 3-47 [facility] Comment on above: Performed By: #### 4 [id number], 61581072, 28165886, [id number] #### [facility] [address] [place] [address] [facility] Bilirubin [Mass/Vol] 0.1 mg/dL Low 0.2-1.6 [facility] Comment on above: Performed By: #### 4 1511262, 53579007, 89694903, [id number] #### [address] [address] [facility] Bilirubin.indirect [Mass/Vol] 0.1 mg/dL Normal <=0.5 [facility] Comment on above: Performed By: #### 4 4878217, 92676695, [id number], [id number] #### [address] [address] Protein [Mass/Vol] 6.6 g/dL Normal 6.3-8.2 [facility] Comment on above: Performed By: #### 4 [id number], [id number], [id number], [id number] #### [facility] [address] Hepatic Function Panelon Albumin (Syn fld) [Mass/Vol] 4.0 g/dL 3.5 - 5.0 g/dL [facility] Aldosterone (U) [Mass/Vol] 104 U/L 24 - 126 U/L [facility] ALT [Catalytic activity/Vol] 50 U/L High 4 - 35 U/L [facility] AST [Catalytic activity/Vol] 59 U/L High 3 - 47 U/L [facility] Bilirubin [Mass/Vol] 0.1 mg/dL Low 0.2 - 1 .6 mg/dL [facility] Bilirubin.conjugated [Mass/Vol] 0.1 mg/dL NINF - 0.5 mg/dL [facility] Protein [Mass/Vol] 6.6 g/dL 6.3 - 8.2 g/dL [facility] LIPASEon 08-12-2023 Lipase [Catalytic activity/Vol] 11 U/L Low 23-300 [facility] Comment on above: Performed By: #### 4 [id number], 53925495, [id number], [id number] #### [facility] [address] Lipaseon 08-12-2023 Lipase [Catalytic activity/Vol] 11 U/L Low 23 - 300 U/L [facility] No Panel Informationon 08-12 Extra Tube Hold for add-ons. [facility] Interpretation and review of laboratory results Abnormal [facility] POCT ED/FC/GSC Urine PregOrd ered By: Della Hays on 08-12-2023 Beta HCG ( test) Ql (U) Negative [facility] Interpretation and review of laboratory results Normal [facility] Senior Buyer Planner Acceptable yes [facility] TROPONIN Ion 08-12-2023 Troponin I.cardiac [Mass/Vol] ng/mL Normal <=0.033 [facility] Comment on above: Result Comment: Nega tive: No detectable troponin-I. Performed By: #### 4 [id number] #### [address] [address] TROPONIN I SERIESon 08-12-20 Troponin I.cardiac [Mass/Vol] ng/mL Normal <=0.033 [facility] Comment on above: Result Comment: Nega tive: No detectable troponin-I. Performed By: #### 4 [id number], 38665849, [id number], [id number] #### [address] Troponin I (One time)on Interpretation and review of laboratory results Normal [facility] Troponin I.cardiac [Mass/Vol] ng/mL NINF - 0.033 ng/mL [facility] Comment on above: Negative: No detectable troponin-I. [facility] Troponin I - Series (X 3)on 08-12-2023 Interpretation and review of laboratory results Normal [facility] Troponin I.cardiac [Mass/Vol] ng/mL NINF - 0.033 ng/mL [facility] Comment on above: Negative: No detectable troponin-I. [facility] URINALYSIS WITH REFLEX CULTU REon 08-12-2023 Appearance (U) Clear Normal [facility] Comment on above: Performed By: #### 4 [id number] #### [address] BILIRUBIN UA Negative Normal Negative [facility] Comment on above: Performed By: #### 4 [id number] #### [place] [address] [place] Color (U) Yellow Normal [facility] Comment on above: Performed By: #### 4 [id number] #### [address] [address] [place] Glucose Ql (U) Negative Normal Negative [facility] Comment on above: Performed By: #### 4 [id number] #### [address] [address] [place] Ketones Ql (U) Negative Normal Negative [facility] Comment on above: Performed By: #### 4 [id number] #### [address] [address] [place] LEUKOESTERASE Negative Normal Negative [facility] Comment on above: Performed By: #### 4 [id number] #### [address] MUCOUS-URINE Occasional Normal [facility] Comment on above: Performed By: #### 4 [id number] #### [address] Nitrite Ql (U) Negative Normal Negative [facility] Comment on above: Performed By: #### 4 [id number] #### [address] OCCULT BLD Negative Normal Negative [facility] Comment on above: Performed By: #### 4 [id number] #### [address] PH, URINE 5.0 Normal [facility] Comment on above: Performed By: #### 4 [id number] #### [address] Protein Ql (U) Negative Normal Negative [facility] Comment on above: Performed By: #### 4 [id number] #### [address] RBC LM.HPF (Urine sed) [#/Area] /[HPF] Normal <=5 [facility] Comment on above: Performed By: #### 4 [id number] #### [address] SPECIFIC GRAVITY, URINE 1.025 Normal [facility] Comment on above: Performed By: #### 4 [id number] #### [address] SQUAMOUS EPI CELLS 51 /LPF [facility] Comment on above: Performed By: #### 4 [id number] #### [address] UROBILINOGEN UA Negative Normal <2.0 [facility] Comment on above: Performed By: #### 4 [id number] #### [address] WBC LM.HPF (Urine sed) [#/Area] 2 /[HPF] Normal <=5 [facility] Comment on above: Performed By: #### 4 [id number] #### [address] Urinalysis complete W Reflex Culture panel (U)on 08-12-2023 Acetone [Mass/Vol] Negative Negative [facility] Appearance (Body fld) Clear Gen [facility] Bilirubin Ql (U) Negative Negative [facility] Color (Stone) Yellow [facility] G6PD (RBC) [Catalytic activity/Vol] Negative Negative [facility] Hemoglobin Ql (U) NINF [facility] Leukocyte esterase Test strip Ql (U) Negative Negative [facility] Mucor racemosus IgE Qn (S) Occasional /LPF [facility] Nitrite Test strip (U) [Mass/Vol] Negative Negative [facility] pH (Migue fld) 5.0 [facility] Protein (U) [Mass/Vol] Negative Negative [facility] T[place]all IgE Qn (S) Negative Negative [facility] Specific gravity (U) [Rel density] 1.[address] [facility] Spherocytes LM Ql (Bld) 51 /LPF [facility] Urobilinogen Qn (U) Negative [facility] - 2.0 [facility] WBC (U) [#/Vol] 2 /uL [facility] 36on 08-02-2023 36 Call placed to alex spears to discuss how often she is taking Miralax. Patient is taking Miralax once daily as instructed. Per Alba Montague she was instructed that she can take it twice a day. Also advised patient that Alba Montague will be consulting with the physician who performed her procedure. Normal [facility] Orders Onlyon 08-02-2023 Orders Only [id number] Darrian Leal 1970 F Date Provider Department Center 08/02/2023 [facility] Gerardo Heal No family history on file [facility] CNOVon 07-31-2023 CNOV Office Visit (GUMROBERT ) MARY LEAL ([id number]) 1970 F Date Time Provider Department 07/31/23 2:30 PM NELSY CHÁVEZ During your visit today, we recorded the following information about you: Pulse Blood pressure Weight Height 76/minute 136/96 69.9 kg 1.626 m Nelsy Chávez APRN.KWESI 07/31/2023 5:35 PM Signed Female Pelvic Medicine [...] new Pain: no Abnormal 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 She has no history of an abnormal mammogram with cysts on US LMP: No LMP recorded. Patient has had a hysterectomy.; Menopause 3 years ago; hysterectomy in 2015: Menstrual history: NA; Deliveries: I have confirmed and edited as necessary, the PFSH obtained by others. Nelsy Chávez APRN.METAL FURRER Dirt Bike Racer offered: Patient declines. OBJECTIVE: There were no [...] for now d/t side effects Nelsy Chávez APRN.METAL FURRER I spent a total of 45 minutes on the date of the service which included preparing to see the patient, [id number] patient care, completing clinical documentation, performing a [...] [R35.0] Nocturia [R35.1] Order(s):UA DIP, URINE (POC) [[id number]] Order #: [id number]. #:[id number] URODYNAMICS WHI [[id number]] Order #: [id number] Prescriptions as of 07/31/2023 - atenolol (TENORMIN) [...] 10 m (more content not included)... Normal [facility] UA DIP, URINE (POC)on 2022 BILIRUBIN UA (POCT) Negative Negative [facility] CLARITY UA (POCT) Clear [facility] COLOR UA (POCT) Yellow [facility] GLUCOSE UA (POCT) Negative Negative mg/dL [facility] Hemoglobin Ql (U) Negative Negative [facility] KETONE UA (POCT) Negative Negative mg/dL [facility] LEUKOCYTES UA (POCT) Negative Negative [facility] NITRITE UA (POCT) Negative Negative [facility] PH UA (POCT) 5.0 4.5 - 8.0 [facility] Protein Ql (U) Negative Negative mg/dL [facility] SPECIFIC GRAVITY UA (POCT) 1.010 1.005 - 1.030 [facility] UROBILINOGEN UA (POCT) 0.2 E.U./dL Normal E.U./dL [facility] Office Visit (Cardiology)on 06-13-2023 Follow-up visit Diagnoses/Problems Assessed Chest pain (786.50) (R07.9) Elevated troponin (790.6) (R77.8) Fatigue (780.79) (R53.83) Never a smoker Overweight with body mass index (BMI) of 27 to 27.9 in adult (278.02,V85.23) (E66.3,Z68.27) Orders Elevated troponin IO EKG Electrocardiogram- 12 Lead; Status:Active - Perform Order,Retrospective Authorization; Requested for:[id number]; Overweight with body mass index (BMI) of 27 to 27.9 in adult Healthy Weight Tips; Status:Complete - Retrospective Authorization; Done: [id number] Some eating tips that can help you lose weight.; Status:Complete - Retrospective Authorization; Done: [id number] SocHx: Never a smoker Tobacco Use Screening; Status:Complete; Done: [id number] Patient Instructions Please bring all medicines, vitamins, [...] weakness, dizziness, diaphoresis with recent work-up that [facility] emergency room. Reportedly her troponins [...] of which are currently being investigated at [facility] (now her fourth GI specialist). Last year while in [place] she had similar issues with elevated troponins in the ED and underwent heart catheterization that did not reveal any specific significant disease, details of the discharge summary are reviewed She underwent recent stress perfusion imaging at [facility], the report is reviewed, she [...] disease, will investigate the troponin rise at [facility] however I believe this is likely a non-[place] troponin elevation, likely associated with underlying inflammatory [...] negative for complaint. Vitals Vital Signs Recorded: [id number] 10:37AM Heart Rate70, Apical Aqsybauq913, RUE, Sitting Wpzocgdbl60, RUE, Sitting Height5 ft 4 in Xzsylp590 lb BMI Uoprlyphgb24.46 kg/m2 BSA Calculated1.78 Tobacco Useb) No PHQ-2 [...] Screening.on 023 Adult depression screening assessment No [employer] [facility] [address] DO Work Phone: Adult depression screening assessment Yes 6APTFulshear [employer] [facility] [address] DO Work Phone: Adult depression screening assessment Moderate (10-14) [facility] [facility] DO Work Phone: Fall risk assessment a) No falls within the last year [facility] [address] DO Work Phone: Tobacco use status CP b) No [facility] [address] DO Work Phone: Tobacco Screening. 1-Several days [facility] 320 DO Work Phone: Tobacco Screening. 3-Nearly every day [facility] [address] DO Work Phone: Tobacco Screening. 0-Not at all [facility] [address] DO Work Phone: Tobacco Screening. Somewhat Difficult [facility] [address] DO Work Phone: STR cardiac stress/lexiscano n 06-09-2023 STR cardiac stress/lexiscan [facility] Main [place] [address] [place] [address] Cardiac Stress Test Signed Patient: Mary Leal MR#: [id number] 863 : 1970 Acct:[id number] Age/Sex: 53 / F ADM Date: 06/05/23 Loc: ER Room: Type: [facility] ER Attending Dr: Copies to: DO Marilele Soto MD, [facility] Ordering Provider: Anibal Valle DO Date of [...] 06/09/23 1614 Dictated By: Marielle Scruggs MD, [facility] 06/09/23 1550 Signed By: 06/10/23 0903 Normal [facility] NM mirtha perf SPECT rest stron 06-08-2023 NM mirtha perf SPECT rest str [facility] [place] [address] Nuclear Medicine Report Signed Patient: Mary Leal MR#: [id number] : 1970 Acct:[id number] Age/Sex: 53 / F ADM Date: 06/05/23 Loc: ER Room: Type: [facility] ER Attending Dr: Copies to: DO Marielle Soto MD, [facility] Ordering Provider: Anibal Valle DO Date of [...] 06/08/23 1659 Dictated By: Marielle Scruggs MD, [facility] 06/08/23 1540 Signed By: 06/09/23 1532 Normal [facility] Activated partial thrombopla stin time (aPTT) in platelet poor plasma by coagulation aOrdered By: Anibal Valle on 06-05-2023 aPTT Coag (PPP) [Time] 28.0 s 25.1-36.[address] [facility] Automated basophil %Ordered By: Anibal Valle on 06-05-2023 Basophils/100 WBC (Bld) 0.4 % Normal . [facility] Comment on above: Performed By: #### H S TROP, BNP, BMP, CBC, PTT, PT #### [address] Automated basophil countOrde red By: Anibal Valle on 06-05-2023 Basophils (Bld) [#/Vol] 0.0 10*3/uL Normal 0.0-0.[address] [facility] Comment on above: Result Comment: PERF ORMED BY: [place] [address] PATHOLOGIST SALES AND BUSINESS DEVELOPMENT MANAGER LEVAR CASE M.D. Performed By: #### H S TROP, BNP, BMP, CBC, PTT, PT #### [address] Automated blood monocyte cou ntOrdered By: Anibal Valle on 06-05-2023 Monocytes (Bld) [#/Vol] 0.3 10*3/uL Normal 0.0-0.[address] [facility] Comment on above: Performed By: #### H S TROP, BNP, BMP, CBC, PTT, PT #### [address] Automated eosinophil %Ordere d By: Anibal Valle on 06-05-2023 Eosinophils/100 WBC (Bld) 1.9 % Normal . [facility] Comment on above: Performed By: #### H S TROP, BNP, BMP, CBC, PTT, PT #### [address] Automated eosinophil countOr dered By: Anibal Valle on 06-05-2023 Eosinophils (Bld) [#/Vol] 0.1 10*3/uL Normal 0.0-0.[address] [facility] Comment on above: Performed By: #### H S TROP, BNP, BMP, CBC, PTT, PT #### [address] [place] [address] [place] Automated monocyte %Ordered By: Anibal Valle on 06-05-2023 Monocytes/100 WBC (Bld) 7.5 % Normal . [facility] Comment on above: Performed By: #### H S TROP, BNP, BMP, CBC, PTT, PT #### [address] Automated neutrophil %Ordere d By: Anibal Valle on 06-05-2023 Neutrophils/100 WBC (Bld) 49.2 % Normal . [facility] Comment on above: Performed By: #### H S TROP, BNP, BMP, CBC, PTT, PT #### [address] BNP ser/plasOrdered By: Anibal Valle on 06-05-2023 Natriuretic peptide B (Bld) [Mass/Vol] 39.0 pg/mL Normal 5-[address] [facility] Comment on above: Result Comment: PERF ORMED BY: [place] [address] PATHOLOGIST SALES AND BUSINESS DEVELOPMENT MANAGER LEVAR CASE M.D. Performed By: #### H S TROP, BNP, BMP, CBC, PTT, PT ####[address] Basic Metabolic Panelon 07-3 Creatinine Clr Calc Pharmacy 97.82 Normal [facility] Comment on above: Result Comment: PERF ORMED BY: [place] [address] PATHOLOGIST SALES AND BUSINESS DEVELOPMENT MANAGER LEVAR CASE M.D. Performed By: #### H S TROP, BNP, BMP, CBC, PTT, PT #### [address] GFR/1.73 sq M.predicted MDRD (S/P/Bld) [Vol rate/Area] mL/min/{1.73_m2} Normal [facility] Comment on above: Performed By: #### H S TROP, BNP, BMP, CBC, PTT, PT #### [place] [address] Calcium [Mass/volume] in Ser um or PlasmaOrdered By: Anibal Valle on 06-05-2023 Calcium [Mass/Vol] 9.0 mg/dL Normal 8.6-10.3 [facility] Comment on above: Performed By: #### H S TROP, BNP, BMP, CBC, PTT, PT #### [address] Carbon dioxide, total [Moles /volume] in Serum or PlasmaOrdered By: Anibal Valle on 06-05-2023 CO2 [Moles/Vol] 23.2 mmol/L Normal 21.0-31.0 [facility] Comment on above: Performed By: #### H S TROP, BNP, BMP, CBC, PTT, PT #### [address] Chloride [Moles/volume] in S jay or PlasmaOrdered By: Anibal Valle on 06-05-2023 Chloride [Moles/Vol] 108 mmol/L High 98-107 [facility] Comment on above: Performed By: #### H S TROP, BNP, BMP, CBC, PTT, PT #### [address] Complete Blood Count Auto Di ffon 06-05-2023 Mean Corpuscular HGB Conc 34.5 g/dL Normal 32.0-35.0 [facility] Comment on above: Performed By: #### H S TROP, BNP, BMP, CBC, PTT, PT #### [address] Monocytes/100 WBC (Bld) 24.18 % High 0.00-20.00 [facility] Comment on above: Result Comment: For adults in ED, MDW > 20.0 may be associated with a higher risk of sepsis during the first 12 hrs of hospital admission Performed By: #### H S TROP, BNP, BMP, CBC, PTT, PT #### [address] NRBC% 0.1 /100{WBC} Normal 0-0.5 [facility] Comment on above: Performed By: #### H S TROP, BNP, BMP, CBC, PTT, PT #### [facility] [address] Creatinine [Mass/volume] in Serum or PlasmaOrdered By: Anibal Valle on 06-05-2023 Creatinine [Mass/Vol] 0.67 mg/dL Normal 0.60-1.20 [facility] Comment on above: Performed By: #### H S TROP, BNP, BMP, CBC, PTT, PT #### [facility] [address] ECG 12 lead ECGon 06-05-2023 ECG 12 lead ECG [facility] [place] [address] Electrocardiograph Report Signed Patient: Mary Leal MR#: [id number] 863 : 1970 Acct:[id number] Age/Sex: 53 / F ADM Date: 06/05/23 Loc: ER Room: Type: [facility] ER Attending Dr: Ordering Provider: Olayinka Corado [...] was found Confirmed by ANIBAL VALLE DO ([id number]) on 06/05/2023 4:21:05 PM Referred By: Electronically Signed By:ANIBAL VALLE DO Transcribed By: MUS Signed By Anibal Valle DO 06/05 1621 Normal [facility] ECG 12 lead ECG [facility] [place] [address] Electrocardiograph Report Signed Patient: Mary Leal MR#: [id number] 863 : 1970 Acct:[id number] Age/Sex: 53 / F ADM Date: 06/05/23 Loc: ER Room: Type: [facility] ER Attending Dr: Ordering Provider: Anibal Valle [...] was found Confirmed by ANIBAL VALLE DO ([id number]) on 06/05/2023 4:21:06 PM Referred By: Electronically Signed By:ANIBAL VALLE DO Transcribed By: MUS Signed By Anibal Valle DO 06/05 1621 Normal [facility] Erythrocyte distribution wid th [Ratio] by Automated countOrdered By: Anibal Valle on 06-05-2023 Erythrocyte distribution width (RBC) [Ratio] 13.9 % Normal 11.9-15.[address] [facility] Comment on above: Performed By: #### H S TROP, BNP, BMP, CBC, PTT, PT #### [facility] [address] Erythrocytes [#/volume] in B lood by Automated countOrdered By: Anibal Valle on 06-05-2023 RBC (Bld) [#/Vol] 4.29 10*6/uL Normal 3.60-5.00 [facility] Comment on above: Performed By: #### H S TROP, BNP, BMP, CBC, PTT, PT #### [facility] [address] [place] [address] [place] Glucose [Mass/volume] in Ser um or PlasmaOrdered By: Anibal Valle on 06-05-2023 Glucose [Mass/Vol] 106 mg/dL High 70-100 [facility] Comment on above: ADA recommended refe rence rangeRandom Glucose Reference Range is dependent on time and content of last meal. Glucose of more than 200 mg/dL in a nonstressed, ambulatory subject supports the diagnosis of Diabetes Mellitus. Result Comment: [facility] Glucose Reference Range is dependent on time and content of last meal. Glucose of more than 200 mg/dL in a nonstressed, ambulatory subject supports the diagnosis of Diabetes Mellitus. ADA recommended reference range Performed By: #### H S TROP, BNP, BMP, CBC, PTT, PT #### [address] Hematocrit [Volume Fraction] of Blood by Automated countOrdered By: Anibal Valle on 06-05-2023 Hematocrit (Bld) [Volume fraction] 34.4 % Normal 34.0-46.[address] [facility] Comment on above: Performed By: #### H S TROP, BNP, BMP, CBC, PTT, PT #### [address] Hemoglobin [Mass/volume] in BloodOrdered By: Anibal Valle on 06-05-2023 Hemoglobin (Bld) [Mass/Vol] 11.9 g/dL Normal 11.8-15.[address] [facility] Comment on above: Performed By: #### H S TROP, BNP, BMP, CBC, PTT, PT #### [address] Leukocytes [#/volume] correc herbert for nucleated erythrocytes in Blood by Automated counOrdered By: Anibal Valle on 06-05-2023 WBC corrected for nucl RBC Auto (Bld) [#/Vol] 4.4 10*3/uL 3.8-11.[address] [facility] Leukocytes [#/volume] in Blo od by Automated countOrdered By: Anibal Valle on 06-05-2023 WBC (Bld) [#/Vol] 4.4 10*3/uL Normal 3.8-11.6 [facility] Comment on above: Performed By: #### H S TROP, BNP, BMP, CBC, PTT, PT #### [place] [address] [place] Lymphocytes [#/volume] in Bl ood by Automated countOrdered By: Anibal Valle on 06-05-2023 Lymphocytes (Bld) [#/Vol] 1.8 10*3/uL Normal 1.00-4.[address] [facility] Comment on above: Performed By: #### H S TROP, BNP, BMP, CBC, PTT, PT #### [facility] [address] Lymphocytes/100 leukocytes i n Blood by Automated countOrdered By: Anibal Valle on 06-05-2023 Lymphocytes/100 WBC (Bld) 41.0 % Normal . [facility] Comment on above: Performed By: #### H S TROP, BNP, BMP, CBC, PTT, PT #### [facility] [address] [place] [address] MCH [Entitic mass] by Automa herbert countOrdered By: Anibal Valle on 06-05-2023 MCH (RBC) [Entitic mass] 27.7 pg Normal 24.7-34.[address] [facility] Comment on above: Performed By: #### H S TROP, BNP, BMP, CBC, PTT, PT #### [address] MCHC Auto (RBC) [Mass/Vol]Or dered By: Anibal Valle on 06-05-2023 MCHC (RBC) [Mass/Vol] 34.5 g/dL 32.0-35.0 [facility] MCV [Entitic volume] by Auto mated countOrdered By: Anibal Valle on 06-05-2023 MCV (RBC) [Entitic vol] 80.2 fL Normal 80-[address] [facility] Comment on above: Performed By: #### H S TROP, BNP, BMP, CBC, PTT, PT #### [facility] [address] [place] [address] Monocyte distribution width [Entitic volume] in Blood by AutomatedOrdered By: Anibal Valle on 06-05-2023 Monocyte distribution width Auto (Bld) [Entitic vol] 24.18 % 0.00-20.[address] [facility] Comment on above: For adults in ED, MD W > 20.0 may be associated with a higher risk of sepsis during the first 12 hrs of hospital admission Neutrophils [#/volume] in Bl ood by Automated countOrdered By: Anibal Valle on 06-05-2023 Neutrophils (Bld) [#/Vol] 2.2 10*3/uL Normal 1.8-7.[address] [facility] Comment on above: Performed By: #### H S TROP, BNP, BMP, CBC, PTT, PT #### [facility] [address] [place] [address] No Panel InformationOrdered By: Anibal Valle on 06-05-2023 Estimated GFR (CKD-EPI) > 60.0 mL/Min [facility] Creatinine Clearance (Chem 97.[address] [facility] Nucleated erythrocytes [Pres ence] in Blood by Automated countOrdered By: Anibal Valle on 06-05-2023 Nucleated RBC Auto Ql (Bld) 0.1 /100{WBC} 0-0.[address] [facility] Partial Thromboplastin Timeo n 06-05-2023 aPTT Coag (Bld) [Time] 28.0 s Normal 25.1-36.5 [facility] Comment on above: Result Comment: PERF ORMED BY: [place] [address] PATHOLOGIST SALES AND BUSINESS DEVELOPMENT MANAGER LEVAR CASE M.D. Performed By: #### H S TROP, BNP, BMP, CBC, PTT, PT #### [address] Platelet mean volume [Entiti c volume] in Blood by Automated countOrdered By: Anibal Valle on 06-05-2023 Platelet mean volume (Bld) [Entitic vol] 7.4 fL Normal 6.3-10.[address] [facility] Comment on above: Performed By: #### H S TROP, BNP, BMP, CBC, PTT, PT #### [facility] [address] [place] [address] Platelet poor plasma interna tional normalized ratio (INR) by coagulation assay (relatOrdered By: Anibal Valle on 06-05-2023 INR Coag (PPP) [Relative time] 1.0 {INR} Normal [facility] Comment on above: INR Therapeutic [...] TROP, BNP, BMP, CBC, PTT, PT #### [address] Platelets [#/volume] in Bloo d by Automated countOrdered By: Anibal Valle on 06-05-2023 Platelets (Bld) [#/Vol] 336 10*3/uL Normal 150-[address] [facility] Comment on above: Performed By: #### H S TROP, BNP, BMP, CBC, PTT, PT #### [address] Potassium [Moles/volume] in Serum or PlasmaOrdered By: Anibal Valle on 06-05-2023 Potassium [Moles/Vol] 3.8 mmol/L Normal 3.5-5.1 [facility] Comment on above: Performed By: #### H S TROP, BNP, BMP, CBC, PTT, PT #### [address] Prothrombin Time INROrdered By: Anibal Valle on 06-05-2023 PT Coag (PPP) [Time] 12.0 s Normal 9.0-12.9 [facility] Comment on above: Performed By: #### H S TROP, BNP, BMP, CBC, PTT, PT #### [address] Serum or plasma anion gap de terminationOrdered By: Anibal Valle on 06-05-2023 Anion gap [Moles/Vol] 10.6 mmol/L Normal 6.0-15.0 [facility] Comment on above: Performed By: #### H S TROP, BNP, BMP, CBC, PTT, PT #### [facility] [address] Sodium [Moles/volume] in Ser um or PlasmaOrdered By: Anibal Valle on 06-05-2023 Sodium [Moles/Vol] 138 mmol/L Normal 136-145 [facility] Comment on above: Performed By: #### H S TROP, BNP, BMP, CBC, PTT, PT #### [facility] [address] Troponin I High Sensitivityo n 06-05-2023 Troponin I High Sensitivity 2.5 pg/mL Normal 0.0-15.0 [facility] Comment on above: Result Comment: PERF ORMED BY: [facility] [address] [place] [address] PATHOLOGIST SALES AND BUSINESS DEVELOPMENT MANAGER LEVAR CASE M.D. Performed By: #### H S TROP ####[address] Troponin I High Sensitivity 2.6 pg/mL Normal 0.0-15.0 [facility] Comment on above: Result Comment: PERF ORMED BY: [facility] [address] [place] [address] PATHOLOGIST SALES AND BUSINESS DEVELOPMENT MANAGER LEVAR CASE M.D. Performed By: #### H S TROP, BNP, BMP, CBC, PTT, PT ####[place] [id number] [facility] Troponin I.cardiac [Mass/vol ume] in Serum or Plasma by Detection limit <= 0.01 ng/Ordered By: Anibal Valle on 06-05-2023 Troponin I.cardiac DL <= 0.01 ng/mL [Mass/Vol] 2.6 pg/mL 0.0-15.[address] [facility] Urea nitrogen [Mass/volume] in Serum or PlasmaOrdered By: Anibal Valle on 06-05-2023 Urea nitrogen [Mass/Vol] 10 mg/dL Normal 7-[address] [facility] Comment on above: Performed By: #### H S TROP, BNP, BMP, CBC, PTT, PT #### [facility] [address] XR chest 1V portableon 06-05 XR chest 1V portable [facility] [facility] [address] [place] [address] XRay Report Signed Patient: Mary Leal MR#: [id number] : 1970 Acct:[id number] Age/Sex: 53 / F ADM Date: 06/05/23 [...] Andres Bullard M.D.06/05/2023 9:53 AM Dictation Location: [place] [address] Transcribed By: [facility] 06/05/23 0953 Dictated By: Andres Bullard DO 06/05/23 0952 Signed By: 06/05/23 0953 Normal [facility] CBC AUTO DIFFon 04-05-2023 BASO # 0.0 103/ul Normal 0.0-0.1 [facility] Comment on above: Performed By: #### L ACT #### [facility] [address] [address] [address] Mirian Velasco Basophils/100 WBC (Bld) 0.8 % Normal 0.2-2.0 [facility] Comment on above: Performed By: #### L ACT #### [facility] [address] [address] [address] Mirian Velasco EO # 0.1 103/ul Normal 0.0-0.7 [facility] Comment on above: Performed By: #### L ACT #### [facility] [address] [place] [address] Dr. Mirian Velasco Eosinophils/100 WBC (Bld) 1.1 % Normal 0.9-7.0 [facility] Comment on above: Performed By: #### L ACT #### [facility] [address] [place] [address] Dr. Mirian Velasco Erythrocyte distribution width (RBC) [Ratio] 13.1 % Normal 11.0-15.0 [facility] Comment on above: Performed By: #### L ACT #### [facility] [address] [place] [address] Dr. Mirian Velasco Hematocrit (Bld) [Volume fraction] 37.6 % Normal 36.0-48.0 [facility] Comment on above: Performed By: #### L ACT #### [facility] [address] [place] [address] Dr. Mirian Velasco Hemoglobin (Bld) [Mass/Vol] 12.4 g/dL Normal 12.0-16.0 [facility] Comment on above: Performed By: #### L ACT #### [facility] [address] [place] [address] Dr. Mirian Velasco IG # 0.01 10e3/ul Normal 0.00-0.03 [facility] Comment on above: Performed By: #### L ACT #### [facility] [address] [place] [address] Dr. Mirian Velasco IG % 0.2 % Normal 0.0-0.5 [facility] Comment on above: Performed By: #### L ACT #### [facility] [address] [place] [address] Dr. Mirian Velasco LYMPH # 2.5 103/ul Normal 1.2-3.8 [facility] Comment on above: Performed By: #### L ACT #### [facility] [address] [place] [address] Dr. Mirian Velasco Lymphocytes/100 WBC (Bld) 46.2 % Normal 20.5-60.0 [facility] Comment on above: Performed By: #### L ACT #### [facility] [address] [place] [address] Dr. Mirian Velasco MANUAL DIFF REQ NO Normal [facility] Comment on above: Performed By: #### L ACT #### [facility] [address] [place] [address] Dr. Mirian Velasco MCH (RBC) [Entitic mass] 27.1 pg Normal 26.7-34.0 [facility] Comment on above: Performed By: #### L ACT #### [facility] [address] [place] [address] Dr. Mirian Velasco MCHC (RBC) [Mass/Vol] 33.0 g/dL Normal 29.9-35.2 [facility] Comment on above: Performed By: #### L ACT #### [facility] [address] [place] [address] Dr. Mirian Velasco MCV (RBC) [Entitic vol] 82.3 fL Normal 81.0-99.0 [facility] Comment on above: Performed By: #### L ACT #### [facility] [address] [place] [address] Dr. Mirian Velasco MONO # 0.4 103/ul Normal 0.3-0.8 [facility] Comment on above: Performed By: #### L ACT #### [facility] [address] [place] [address] Dr. Mirian Velasco Monocytes/100 WBC (Bld) 7.9 % Normal 1.7-12.0 [facility] Comment on above: Performed By: #### L ACT #### [facility] [address] [place] [address] Dr. Mirian Velasco NEUT # 2.3 103/ul Normal 1.4-6.5 [facility] Comment on above: Performed By: #### L ACT #### [facility] [address] [place] [address] Dr. Mirian Velasco Neutrophils/100 WBC (Bld) 43.8 % Normal 43.0-75.0 [facility] Comment on above: Performed By: #### L ACT #### [facility] [address] [address] [address] Mirian Velasco Platelet mean volume (Bld) [Entitic vol] 9.2 fL Critically low 9.5-13.5 [facility] Comment on above: Performed By: #### L ACT #### [facility] [address] [address] [address] Mirian Velasco PLT 318 103/ul Normal 150-450 [facility] Comment on above: Performed By: #### L ACT #### [facility] [address] [address] [address] Mirian Velasco RBC 4.57 106/ul Normal 4.20-5.40 [facility] Comment on above: Performed By: #### L ACT #### [facility] [address] [address] [address] Mirian Velasco WBC 5.3 103/ul Normal 4.0-11.0 [facility] Comment on above: Performed By: #### L ACT #### [facility] [address] [address] [address] Mirian Velasco PROF CHEM 8 (BAS METB)on Anion gap [Moles/Vol] 19.0 mmol/L Normal [facility] Comment on above: Performed By: #### H ELENAPN, BMP ####[facility] [address] [place] [place] [address]Dr. Mirian Velasco Calcium [Mass/Vol] 9.6 mg/dL Normal 8.5-10.1 [facility] Comment on above: Performed By: #### H STROPN, BMP ####[facility] [address] [place] [address]Dr. Mirian Velasco Chloride [Moles/Vol] 103 mmol/L Normal 98-107 [facility] Comment on above: Performed By: #### H STROPN, BMP ####[facility] [address] [place] [address]Dr. Mirian Velasco CO2 [Moles/Vol] 23.1 mmol/L Normal 21.0-32.0 [facility] Comment on above: Performed By: #### Sukumar LAMBERT, BMP ####[facility] [address] [place] [address]Dr. Mirian Velasco Creatinine [Mass/Vol] 0.84 mg/dL Normal 0.55-1.02 [facility] Comment on above: Performed By: #### Sukumar LAMBERT, BMP ####[facility] [address] [place] [address]Dr. Mirian Velasco EGFR-AF IRAQI >60 Normal >=60 [facility] Comment on above: Performed By: #### Sukumar LAMBERT, BMP ####[facility] [address] [place] [address]Dr. Mirian Velasco EGFR-NON AF IRAQI >60 Normal >=60 [facility] Comment on above: Performed By: #### Sukumar LAMBERT, BMP ####[facility] [address] [address]Dr. Miiran Velasco Glucose [Mass/Vol] 129 mg/dL Critically high 74-106 [facility] Comment on above: Performed By: #### Sukumar LAMBERT, BMP ####[facility] [address] [place] [address]Dr. Mirian Velasco Potassium [Moles/Vol] 3.1 mmol/L Critically low 3.5-5.1 [facility] Comment on above: Performed By: #### Sukumar LAMBERT, BMP ####[facility] [address] [address]Dr. Mirian Velasco Sodium [Moles/Vol] 142 mmol/L Normal 136-145 [facility] Comment on above: Performed By: #### Sukumar LAMBERT, BMP ####[facility] [address] [place] [address]Dr. Mirian Velasco Urea nitrogen [Mass/Vol] 12.0 mg/dL Normal 7.0-18.0 [facility] Comment on above: Performed By: #### Sukumar LAMBERT, BMP ####[facility] [address] [address]Dr. Mirian Velasco Urea nitrogen/Creatinine [Mass ratio] 14.3 mg/mg Normal [facility] Comment on above: Performed By: #### H FAUSTO, SGEUNDO ####[facility] [address] [address]Dr. Mirian Velasco TROPONIN, HIGH SENSITIVITYon 04-05-2023 HSTROP 5.6 pg/mL Normal 4.0-51.3 [facility] Comment on above: Result Comment: CUT- OFF POINTS HAVE BEEN ESTABLISHED BASED ON THE FOURTH UNIVERSAL DEFINITIONS OF MYOCARDIAL INFARCTION. THE UPPER REFERENCE LIMIT (URL) OF TROPONIN, DEFINED THE 99TH PERCENTILE OF cTnI DISTRIBUTION IN A REFERENCE POPULATION, HAS BEEN CONFIRMED THE DECISION THRESHOLD FOR [place] DIAGNOSIS. Performed By: #### H FAUSTO, SEGUNDO ####[facility] [address] [place] [address]DrReno Velasco CBC AUTO DIFFon 03-06-2023 BASO # 0.1 103/ul Normal 0.0-0.1 [facility] Comment on above: Performed By: #### L ACT #### [facility] [address] [place] [address] Dr. Mirian Velasco Basophils/100 WBC (Bld) 0.8 % Normal 0.2-2.0 [facility] Comment on above: Performed By: #### L ACT #### [facility] [address] [place] [address] Dr. Mirian Velasco EO # 0.1 103/ul Normal 0.0-0.7 [facility] Comment on above: Performed By: #### L ACT #### [facility] [address] [place] [address] Dr. Mirian Velasco Eosinophils/100 WBC (Bld) 1.4 % Normal 0.9-7.0 [facility] Comment on above: Performed By: #### L ACT #### [facility] [address] [place] [address] Dr. Mirian Velasco Erythrocyte distribution width (RBC) [Ratio] 13.1 % Normal 11.0-15.0 [facility] Comment on above: Performed By: #### L ACT #### [facility] [address] [place] [address] Dr. Mirian Velasco Hematocrit (Bld) [Volume fraction] 37.9 % Normal 36.0-48.0 [facility] Comment on above: Performed By: #### L ACT #### [facility] [address] [address] [address] Mirian Velasco Hemoglobin (Bld) [Mass/Vol] 12.7 g/dL Normal 12.0-16.0 [facility] Comment on above: Performed By: #### L ACT #### [facility] [address] [place] [address] Dr. Mirian Velasco IG # 0.01 10e3/ul Normal 0.00-0.03 [facility] Comment on above: Performed By: #### L ACT #### [facility] [address] [place] [address] Dr. Mirian Velasco IG % 0.2 % Normal 0.0-0.5 [facility] Comment on above: Performed By: #### L ACT #### [facility] [address] [place] [address] Dr. Mirian Velasco LYMPH # 1.8 103/ul Normal 1.2-3.8 [facility] Comment on above: Performed By: #### L ACT #### [facility] [address] [place] [address] Dr. Mirian Velasco Lymphocytes/100 WBC (Bld) 27.2 % Normal 20.5-60.0 [facility] Comment on above: Performed By: #### L ACT #### [facility] [address] [place] [address] Dr. Mirian Velasco MANUAL DIFF REQ NO Normal [facility] Comment on above: Performed By: #### L ACT #### [facility] [address] [place] [address] Dr. Mirian Velasco MCH (RBC) [Entitic mass] 27.5 pg Normal 26.7-34.0 [facility] Comment on above: Performed By: #### L ACT #### [facility] [address] [place] [address] Dr. Mirian Velasco MCHC (RBC) [Mass/Vol] 33.5 g/dL Normal 29.9-35.2 [facility] Comment on above: Performed By: #### L ACT #### [facility] [address] [place] [address] Dr. Mirian Velasco MCV (RBC) [Entitic vol] 82.0 fL Normal 81.0-99.0 [facility] Comment on above: Performed By: #### L ACT #### [facility] [address] [place] [address] Dr. Mirian Velasco MONO # 0.4 103/ul Normal 0.3-0.8 [facility] Comment on above: Performed By: #### L ACT #### [facility] [address] [place] [address] Dr. Mirian Velasco Monocytes/100 WBC (Bld) 5.5 % Normal 1.7-12.0 [facility] Comment on above: Performed By: #### L ACT #### [facility] [address] [place] [address] Dr. Mirian Velasco NEUT # 4.3 103/ul Normal 1.4-6.5 [facility] Comment on above: Performed By: #### L ACT #### [facility] [address] [place] [address] Dr. Mirian Velasco Neutrophils/100 WBC (Bld) 64.9 % Normal 43.0-75.0 [facility] Comment on above: Performed By: #### L ACT #### [facility] [address] [place] [address] Dr. Mirian Velasco Platelet mean volume (Bld) [Entitic vol] 9.4 fL Critically low 9.5-13.5 [facility] Comment on above: Performed By: #### L ACT #### [facility] [address] [place] [address] Dr. Mirian Velasco PLT 317 103/ul Normal 150-450 [facility] Comment on above: Performed By: #### L ACT #### [facility] [address] [place] [address] Dr. Mirian Velasco RBC 4.62 106/ul Normal 4.20-5.40 [facility] Comment on above: Performed By: #### L ACT #### [facility] [address] [place] [address] Dr. Mirian Velasco WBC 6.6 103/ul Normal 4.0-11.0 [facility] Comment on above: Performed By: #### L ACT #### [facility] [address] [place] [address] Dr. Mirian Velasco CULTURE BLOODon 03-06-2023 Microscopic examination of blood, culture Culture Observations: NO GROWTH AT 5 DAYS. Normal [facility] Comment on above: Performed By: #### B LDCX2 ####[facility] [address] [place], [place] [address]Dr. Mirian Velasco Microscopic examination of blood, culture Culture Observations: NO GROWTH AT 5 DAYS. Normal [facility] Comment on above: Performed By: #### B LDCX1 #### [facility] [address] [place] [address] Dr. Mirian Velasco LACTATE/LACTIC ACIDon 2022 Lactate [Moles/Vol] 2.2 mmol/L Critically high 0.4-2.0 [facility] Comment on above: Performed By: #### L ACT #### [facility] [address] [place] [address] Dr. Mirian Velasco LIPASEon 03-06-2023 Lipase [Catalytic activity/Vol] 53.0 U/L Critically low 73.0-393.0 [facility] Comment on above: Performed By: #### L ACT #### [facility] [address] [place] [address] Dr. Mirian Velasco PROF 14(COMP METB)on 023 Albumin [Mass/Vol] 3.4 g/dL Normal 3.4-5.0 [facility] Comment on above: Performed By: #### L ACT #### [facility] [address] [place] [address] Dr. Mirian Velasco Albumin/Globulin [Mass ratio] 1.0 {ratio} Normal [facility] Comment on above: Performed By: #### L ACT #### [facility] [address] [address] [address] Mirian Velasco ALP [Catalytic activity/Vol] 123 U/L Critically high 46-116 [facility] Comment on above: Performed By: #### L ACT #### [facility] [address] [address] [address] Mirain Velasco ALT [Catalytic activity/Vol] 33 U/L Normal 14-59 [facility] Comment on above: Performed By: #### L ACT #### [facility] [address] [address] [address] Mirian Velasco Anion gap [Moles/Vol] 13.1 mmol/L Normal [facility] Comment on above: Performed By: #### L ACT #### [facility] [address] [place] [address] Dr. Mirian Velsaco AST [Catalytic activity/Vol] 31 U/L Normal 15-37 [facility] Comment on above: Performed By: #### L ACT #### [facility] [address] [place] [address] Dr. Mirian Velasco Bilirubin [Mass/Vol] 0.3 mg/dL Normal 0.2-1.0 [facility] Comment on above: Performed By: #### L ACT #### [facility] [address] [place] [address] Dr. Mirian Velasco Calcium [Mass/Vol] 8.9 mg/dL Normal 8.5-10.1 [facility] Comment on above: Performed By: #### L ACT #### [facility] [address] [address] [address] Mirian Velasoc Chloride [Moles/Vol] 107 mmol/L Normal 98-107 [facility] Comment on above: Performed By: #### L ACT #### [facility] [address] [address] [address] Mirian Velasco CO2 [Moles/Vol] 25.6 mmol/L Normal 21.0-32.0 [facility] Comment on above: Performed By: #### L ACT #### [facility] [address] [address] [address] Mirian Velasco Creatinine [Mass/Vol] 0.70 mg/dL Normal 0.55-1.02 [facility] Comment on above: Performed By: #### L ACT #### [facility] [address] [address] [address] Mirian Velasco EGFR-AF IRAQI >60 Normal >=60 [facility] Comment on above: Performed By: #### L ACT #### [facility] [address] [address] [address] Mirian Velasco EGFR-NON AF IRAQI >60 Normal >=60 [facility] Comment on above: Performed By: #### L ACT #### [facility] [address] [address] [address] Mirian Velasco Globulin (S) [Mass/Vol] 3.4 g/dL Normal [facility] Comment on above: Performed By: #### L ACT #### [facility] [address] [address] [address] Mirian Velasco Glucose [Mass/Vol] 125 mg/dL Critically high 74-106 [facility] Comment on above: Performed By: #### L ACT #### [facility] [address] [place] [address] Dr. Mirian Velasco Potassium [Moles/Vol] 3.7 mmol/L Normal 3.5-5.1 [facility] Comment on above: Performed By: #### L ACT #### [facility] [address] [address] [address] Mirian Velasco Protein [Mass/Vol] 6.8 g/dL Normal 6.4-8.2 [facility] Comment on above: Performed By: #### L ACT #### [facility] [address] [place] [address] Dr. Mirian Velasco Sodium [Moles/Vol] 142 mmol/L Normal 136-145 [facility] Comment on above: Performed By: #### L ACT #### [facility] [address] [address] [address] Mirian Velasco Urea nitrogen [Mass/Vol] 16.0 mg/dL Normal 7.0-18.0 [facility] Comment on above: Performed By: #### L ACT #### [facility] [address] [place] [address] Dr. Mirian Velasco Urea nitrogen/Creatinine [Mass ratio] 22.9 mg/mg Normal [facility] Comment on above: Performed By: #### L ACT #### [facility] [address] [place] [address] Dr. Mirian Velasco PROTIMEon 03-06-2023 INR Coag (PPP) [Relative time] {INR} Normal [facility] Comment on above: Performed By: #### P T #### [facility] [address] [place] [address] Dr. Mirian Velasco INR GUIDELINES SEE BELOW Normal [facility] Comment on above: Result Comment: SAMEER RED INR: 2.0 - 3.0 CONDITIONS NOT LISTED BELOW 2.5 - 3.5 FOR PROSTHETIC HEART VALVE REPLACEMENT 2.5 - 3.5 RECURRENT THROMBOSIS Performed By: #### P T #### [facility] [address] [place] [address] Dr. Mirian Velasco PT Coag (PPP) [Time] 9.8 s Normal 9.0-11.6 [facility] Comment on above: Performed By: #### P T #### [facility] [address] [place] [address] Dr. Mirian Velasco TROPONIN, HIGH SENSITIVITYon 03-06-2023 HSTROP 4.4 pg/mL Normal 4.0-51.3 [facility] Comment on above: Result Comment: CUT- OFF POINTS HAVE BEEN ESTABLISHED BASED ON THE FOURTH UNIVERSAL DEFINITIONS OF MYOCARDIAL INFARCTION. THE UPPER REFERENCE LIMIT (URL) OF TROPONIN, DEFINED THE 99TH PERCENTILE OF cTnI DISTRIBUTION IN A REFERENCE POPULATION, HAS BEEN CONFIRMED THE DECISION THRESHOLD FOR [place] DIAGNOSIS. Performed By: #### L ACT #### [facility] [address] [place] [address] Dr. Mirian Velasco Bacteria identified Aer cx N om (Unsp spec)Ordered By: Niecy Duron on 03-02-2023 Superficial Wound Culture Methicillin Resis Staph Aureus [facility] CT LSPINE WO CONon 3 [...] by: NANCY BELLE Date: 2023-02-19 06:42 Normal [facility] XR ESOPHAGRAMon 12-26-2022 [facility] NURSING PROGon 12-08-2022 NURSING PROG HNO ID: [id number] Author: Lisa Contreras RN Service: Nursing Author Type: Registered Nurse Type: Nursing Progress Note Filed: 12/08/2022 11:28 AM Note Text: [facility] ENDOSCOPY POST PROCEDURE FOLLOW UP CALL [phone] (home) Date Phone Call Made: 12/08/2022 Attempt: [...] more pleasant? No Lisa Contreras RN Normal [facility] ANES POSTPROC EVALon 023 ANES POSTPROC EVAL HNO ID: [id number] Author: Andres Sheets DO Service: Anesthesiology Author Type: Anesthesiologist Type: Anesthesia Postprocedure Evaluation Filed: 12/07/2022 12:44 PM Note Text: POST ANESTHESIA EVALUATION NOTE : 1970 Procedure Summary Date: 12/07/22 Room / Location: [facility] Anesthesia Start: 1034 Anesthesia Stop: 1055 Procedures: [...] December 07, 2022 TIME: 12:44 PM CSN: [id number] [facility] ANES PRE-OPon 12-07-2022 ANES PRE-OP HNO ID: [id number] Author: Andres Sheets DO Service: Anesthesiology Author Type: Anesthesiologist Type: Anesthesia Preprocedure Evaluation Filed: 12/07/2022 9:42 AM Note Text: ANESTHESIOLOGY DAY OF SURGERY NOTE : 1970 Procedure Information Date/Time: 12/07/22 1030 Scheduled providers: [place] Hannah DO Procedures: EGD - THERAPEUTIC, EUS, OR TUBE INTERVENTIONS PH MONTIEL INSERT OFF MEDS Location: [facility] Estimated body mass index is 24.55 kg/m? [...] December 07, 2022 TIME: 9:40 AM CSN: [id number] [facility] HISTORY PHYSICALon 3 HISTORY PHYSICAL HNO ID: [id number] Author: Soraida Mathis PA-C Service: Gastroenterology Author Type: Physician Olive Packer Type: HANDP Filed: 12/07/2022 9:48 AM Note [...] PAIN, N/V/D Medication reconciliation list reviewed in [facility]. Past medical history, past surgical history, social history and family history reviewed and updated in [facility]. ALLERGIES Allergies: Risperidone Intolerance Comment:Breast discharge SEE [facility] BP 109/74 Pulse [...] Mary Leal DATE: 12/07/2022 TIME: 9:41 AM [facility] Upper GI endoscopyon 023 Upper GI endoscopy [facility] Gastrointestinal Endoscopy Patient Name: Mary Leal [...] by the physician, the nurse and the drafter patent in the pre-procedure area in the endoscopy [...] previously scheduled. Procedure Code(s): --- Professional --- 25559, Esophagogastroduodenos copy, flexible, transoral; with dilation of gastric/duodenal stricture(s) (eg, balloon, bougie) Diagnosis Code(s): --- Professional --- K21.00, Gastro-esophageal reflux disease with esophagitis, without bleeding K31.84, Gastroparesis CPT copyright 2020 [employer]. All rights reserved. The codes documented in this report are preliminary and upon wage adjuster review may be revised to meet current compliance requirements. Attending Participation: I personally performed the entire procedure. Scope In: 10:39:12 AM Scope Out: 10:46:13 AM MD Winston Diaz MD 12/07/2022 10 (more content not included)... Normal [facility] ANES POSTPROC EVALon 023 ANES POSTPROC EVAL HNO ID: [id number] Author: Annabel Burton MD Service: Anesthesiology Author Type: Physician Type: Anesthesia Postprocedure Evaluation Filed: 12/05/2022 2:01 PM Note Text: POST ANESTHESIA EVALUATION NOTE : 1970 Procedure Summary Date: 12/05/22 Room / Location: [facility] Anesthesia Start: 900 Anesthesia Stop: 917 Procedure: [...] December 05, 2022 TIME: 2:00 PM CSN: [id number] [facility] ANES PRE-OPon 12-05-2022 ANES PRE-OP HNO ID: [id number] Author: Annabel Burton MD Service: Anesthesiology Author Type: Physician Type: Anesthesia Preprocedure Evaluation Filed: 12/05/2022 8:28 AM Note Text: ANESTHESIOLOGY DAY OF SURGERY NOTE : 1970 Procedure Information Date/Time: 12/05/22 0900 Scheduled providers: Isra Masters DO Procedure: SIGMOIDOSCOPY Location: [facility] Estimated body mass index is 24.55 kg/m? [...] December 05, 2022 TIME: 8:26 AM CSN: [id number] Normal [facility] Flexible Sigmoidoscopyon Flexible sigmoidoscopy [facility] Gastrointestinal Endoscopy Patient Name: Mary Leal Procedure Date: 12/05/2022 8:55 AM Date of : 1970 Admit Type: Outpatient Age: 52 Room: [place] [address] Gender: Female Note Status: Finalized Attending MD: [...] present medications. Procedure Code(s): --- Professional --- 10411, 52, Sigmoidoscopy, flexible; diagnostic, including collection of specimen(s) by brushing or washing, when performed (separate procedure) Diagnosis Code(s): --- Professional --- K59.00, Constipation, unspecified CPT copyright 2020 [employer]. All rights reserved. The codes documented in this report are preliminary and upon wage adjuster review may be revised to meet current compliance requirements. Attending Participation: I personally performed the entire procedure. Scope In: 9:07:04 AM Scope Out: 9:09:45 AM DO Isra Chen DO 12/05/2022 9:13:05 AM This report has been signed electronically by Isra Masters DO Number of Addenda: 0 Note Initiated On: 12/05/2022 8:55 AM Estimated Blood Loss: Estimated blood loss: none. Normal [facility] HISTORY PHYSICALon HISTORY PHYSICAL HNO ID: [id number] Author: Lashanda Dorado PA-C Service: Gastroenterology Author Type: Physician Olive Packer Type: HANDP Filed: 12/05/2022 8:43 AM Note [...] PAIN, N/V/D Medication reconciliation list reviewed in [facility]. Past medical history, past surgical history, social history and family history reviewed and updated in [facility]. ALLERGIES Allergies: Risperidone Intolerance Comment:Breast discharge SEE [facility] There were no [...] Leal DATE: 12/05/2022 TIME: 8:42 AM Normal [facility] NURSING PROGon 12-05-2022 NURSING PROG HNO ID: [id number] Author: Lisa Contreras RN Service: ? Author Type: Registered Nurse Type: Nursing Progress Note Filed: 12/05/2022 1:07 PM Note Text: [facility] ENDOSCOPY PRE PROCEDURE CALL Akiko. I'm calling from [facility] endoscopy to provide you with the information for your surgery/procedure tomorrow. 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 yes When anesthesia or sedation is being given: Patient instructed you must have an adult laborer driver because you will not be able to work or drive for the rest of the day after your test.yes Can you please confirm the name and relationship of your laborer driver. tbd What is the best number for your laborer driver to be reached at tomorrow for updates? tbd Your laborer driver is allowed to wait here with [...] instructed not bring any valuables, jewelry, or lyman and wear comfortable clothing. Do not wear makeup, lotion, or finger nicaraguan. yes Patient instructed: Please bring a list [...] given Any barriers to Patient learning (confusion? 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 If patient needs to reschedule please call: [phone] [facility] phone number: [phone] Type of instruction given: Verbal by telephone contact. Normal [facility] NURSING PROGon 12-02-2022 NURSING PROG HNO ID: [id number] Author: Isra Harman RN Service: ? Author Type: Registered Nurse Type: Nursing Progress Note Filed: 12/02/2022 10:54 AM Note Text: [facility] ENDOSCOPY PRE PROCEDURE CALL Akiko. I'm calling from [facility] to provide you with the information for your surgery/procedure tomorrow. 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 yes When anesthesia or sedation is being given: Patient instructed you must have an adult laborer driver because you will not be able to work or drive for the rest of the day after your test.yes Can you please confirm the name and relationship of your laborer driver. Rich What is the best number for your laborer driver to be reached at tomorrow for updates? 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 Do not wear makeup, lotion, or finger nicaraguan. yes Patient instructed: Please bring a list [...] given Any barriers to Patient learning (confusion? 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 If patient needs to reschedule please call: [phone] [facility] phone number: [phone] Type of instruction given: Verbal by telephone contact. Normal [facility] AMYLASEon 10-20-2022 Amylase [Catalytic activity/Vol] 33 U/L Normal 25-115 [facility] Comment on above: Performed By: #### L ACT #### [facility] [address] [place] [address] Dr. Mirian Velasco CBC AUTO DIFFon 10-20-2022 BASO # 0.0 103/ul Normal 0.0-0.1 [facility] Comment on above: Performed By: #### P T #### [facility] [address] [place] [address] Dr. Mirian Velasco Basophils/100 WBC (Bld) 0.2 % Normal 0.2-2.0 [facility] Comment on above: Performed By: #### P T #### [facility] [address] [place] [address] Dr. Mirian Velasco EO # 0.1 103/ul Normal 0.0-0.7 [facility] Comment on above: Performed By: #### P T #### [facility] [address] [place] [address] Dr. Mirian Velasco Eosinophils/100 WBC (Bld) 0.6 % Critically low 0.9-7.0 [facility] Comment on above: Performed By: #### P T #### [facility] [address] [place] [address] Dr. Mirian Velasco Erythrocyte distribution width (RBC) [Ratio] 13.6 % Normal 11.0-15.0 [facility] Comment on above: Performed By: #### P T #### [facility] [address] [place] [address] Dr. Mirian Velasco Hematocrit (Bld) [Volume fraction] 41.0 % Normal 36.0-48.0 [facility] Comment on above: Performed By: #### P T #### [facility] [address] [place] [address] Dr. Mirian Velasco Hemoglobin (Bld) [Mass/Vol] 13.5 g/dL Normal 12.0-16.0 [facility] Comment on above: Performed By: #### P T #### [facility] [address] [place] [address] Dr. Mirian Velasco IG # 0.06 10e3/ul Critically high 0.00-0.03 [facility] Comment on above: Performed By: #### P T #### [facility] [address] [place] [address] Dr. Mirian Velasco IG % 0.4 % Normal 0.0-0.5 [facility] Comment on above: Performed By: #### P T #### [facility] [address] [place] [address] Dr. Mirian Velasco LYMPH # 2.5 103/ul Normal 1.2-3.8 [facility] Comment on above: Performed By: #### P T #### [facility] [address] [place] [address] Dr. Mirian Velasco Lymphocytes/100 WBC (Bld) 17.5 % Critically low 20.5-60.0 [facility] Comment on above: Performed By: #### P T #### [facility] [address] [place] [address] Dr. Mirian Velasco MANUAL DIFF REQ NO Normal [facility] Comment on above: Performed By: #### P T #### [facility] [address] [place] [address] Dr. Mirian Velasco MCH (RBC) [Entitic mass] 28.1 pg Normal 26.7-34.0 [facility] Comment on above: Performed By: #### P T #### [facility] [address] [place] [address] Dr. Mirian Velasco MCHC (RBC) [Mass/Vol] 32.9 g/dL Normal 29.9-35.2 [facility] Comment on above: Performed By: #### P T #### [facility] [address] [place] [address] Dr. Mirian Velasco MCV (RBC) [Entitic vol] 85.2 fL Normal 81.0-99.0 [facility] Comment on above: Performed By: #### P T #### [facility] [address] [place] [address] Dr. Mirian Velasco MONO # 0.7 103/ul Normal 0.3-0.8 [facility] Comment on above: Performed By: #### P T #### [facility] [address] [place] [address] Dr. Mirian Velasco Monocytes/100 WBC (Bld) 4.5 % Normal 1.7-12.0 [facility] Comment on above: Performed By: #### P T #### [facility] [address] [place] [address] Dr. Mirian Velasco NEUT # 11.0 103/ul Critically high 1.4-6.5 [facility] Comment on above: Performed By: #### P T #### [facility] [address] [place] [address] Dr. Mirian Velasco Neutrophils/100 WBC (Bld) 76.8 % Critically high 43.0-75.0 [facility] Comment on above: Performed By: #### P T #### [facility] [address] [place] [address] Dr. Mirian Velasco Platelet mean volume (Bld) [Entitic vol] 8.7 fL Critically low 9.5-13.5 [facility] Comment on above: Performed By: #### P T #### [facility] [address] [place] [address] Dr. Mirian Velasco PLT 390 103/ul Normal 150-450 [facility] Comment on above: Performed By: #### P T #### [facility] [address] [place] [address] [address] Mirian Velasco RBC 4.81 106/ul Normal 4.20-5.40 [facility] Comment on above: Performed By: #### P T #### [facility] [address] [place] [address] [address] Mirian Velasco WBC 14.3 103/ul Critically high 4.0-11.0 [facility] Comment on above: Performed By: #### P T #### [facility] [address] [address] ABD/PELV W CONon [...] SALMA AMEZQUITA Date: 2022-10-20 12:35 Normal [facility] CULTURE BLOODon 10-20-2022 Microscopic examination of blood, culture Culture Observations: NO GROWTH AT 5 DAYS. Normal [facility] Comment on above: Performed By: #### B [id number] ####[facility] [id number] [place] [address]Dr. Mirian Velasco Microscopic examination of blood, culture Culture Observations: NO GROWTH AT 5 DAYS. Normal [facility] Comment on above: Performed By: #### B LDCX1 #### [facility] [address] [place] [address] Dr. 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 NO POTENTIAL PATHOGENS SEEN. Normal [facility] Comment on above: Performed By: #### U RCX #### [facility] [address] [place] [address] Dr. Mirian Velasco ER URINE PROFILEon Bilirubin Ql (U) Negative Normal NEGATIVE [facility] Comment on above: Performed By: #### P T #### [facility] [address] [place] [address] Dr. Mirian Velasco Clarity (U) CLEAR Normal CLEAR [facility] Comment on above: Performed By: #### P T #### [facility] [address] [place] [address] Dr. Mirian Velasco Color (U) LT. YELLOW Normal YELLOW [facility] Comment on above: Performed By: #### P T #### [facility] [address] [place] [address] Dr. Mirian Velasco ERUD A micrscopic examination will be performed if indicated. Normal [facility] Comment on above: Performed By: #### P T #### [facility] [address] [place] [address] Dr. Mirian Velasco Glucose Ql (U) Negative Normal NEGATIVE [facility] Comment on above: Performed By: #### P T #### [facility] [address] [place] [address] Dr. Mirian Velasco Hemoglobin Ql (U) Negative Normal NEGATIVE [facility] Comment on above: Performed By: #### P T #### [facility] [address] [place] [address] Dr. Mirian Velasco Ketones Ql (U) Negative Normal NEGATIVE [facility] Comment on above: Performed By: #### P T #### [facility] [address] [place] [address] Dr. Mirian Velasco LEUKOCYTES SMALL Abnormal NEGATIVE [facility] Comment on above: Performed By: #### P T #### [facility] [address] [place] [address] Dr. Mirian Velasco Nitrite Ql (U) Negative Normal NEGATIVE [facility] Comment on above: Performed By: #### P T #### [facility] [address] [place] [address] Dr. Mirian Velasco pH (U) 7.0 [pH] Normal 5-9 [facility] Comment on above: Performed By: #### P T #### [facility] [address] [place] [address] Dr. Mirian Velasco SPEC GRAVITY 1.015 Normal 1.005-<=1.025 [facility] Comment on above: Performed By: #### P T #### [facility] [address] [place] [address] Dr. Mirian Velasco UA PROTEIN Negative Normal NEGATIVE/ TRACE [facility] Comment on above: Performed By: #### P T #### [facility] [address] [place] [address] Dr. Mirian Velasco UR MICRO IND INDICATED Normal [facility] Comment on above: Performed By: #### P T #### [facility] [address] [place] [address] Dr. Mirian Velasco Urobilinogen Qn (U) 0.2 {Lyubov'U}/dL Normal 0.2 - 1. 0 [facility] Comment on above: Performed By: #### P T #### [facility] [address] [place] [address] Dr. Mirian Velasco LACTATE/LACTIC ACIDon 2021 Lactate [Moles/Vol] 1.3 mmol/L Normal 0.4-1.9 [facility] Comment on above: Performed By: #### L ACT #### [facility] [address] [place] [address] Dr. Mirian Velasco LIPASEon 10-20-2022 Lipase [Catalytic activity/Vol] 49.0 U/L Critically low 73.0-393.0 [facility] Comment on above: Performed By: #### P T #### [facility] [address] [place] [address] Dr. Mirian Velasco PROF 14(COMP METB)on 022 Albumin [Mass/Vol] 3.2 g/dL Critically low 3.4-5.0 [facility] Comment on above: Performed By: #### P T #### [facility] [address] [place] [address] Dr. Mirian Velasco Albumin/Globulin [Mass ratio] 0.9 {ratio} Normal [facility] Comment on above: Performed By: #### P T #### [facility] [address] [place] [address] Dr. Mirian Velasco ALP [Catalytic activity/Vol] 129 U/L Critically high 46-116 [facility] Comment on above: Performed By: #### P T #### [facility] [address] [place] [address] Dr. Mirian Velasco ALT [Catalytic activity/Vol] 25 U/L Normal 14-59 [facility] Comment on above: Performed By: #### P T #### [facility] [address] [place] [address] Dr. Mirian Velasco Anion gap [Moles/Vol] 10.7 mmol/L Normal [facility] Comment on above: Performed By: #### P T #### [facility] [address] [place] [address] Dr. Mirian Velasco AST [Catalytic activity/Vol] 20 U/L Normal 15-37 [facility] Comment on above: Performed By: #### P T #### [facility] [address] [address] [address] Mirian Velasco Bilirubin [Mass/Vol] 0.5 mg/dL Normal 0.2-1.0 [facility] Comment on above: Performed By: #### P T #### [facility] [address] [address] [address] Mirian Velasco Calcium [Mass/Vol] 9.2 mg/dL Normal 8.5-10.1 [facility] Comment on above: Performed By: #### P T #### [facility] [address] [address] [address] Mirian Velasco Chloride [Moles/Vol] 102 mmol/L Normal 98-107 [facility] Comment on above: Performed By: #### P T #### [facility] [address] [place] [address] Dr. Mirian Velasco CO2 [Moles/Vol] 30.0 mmol/L Normal 21.0-32.0 [facility] Comment on above: Performed By: #### P T #### [facility] [address] [address] [address] Mirian Velasco Creatinine [Mass/Vol] 0.68 mg/dL Normal 0.55-1.02 [facility] Comment on above: Performed By: #### P T #### [facility] [address] [address] [address] Mirian Velasco EGFR-AF IRAQI >60 Normal >=60 [facility] Comment on above: Performed By: #### P T #### [facility] [address] [address] [address] Mirian Velasco EGFR-NON AF IRAQI >60 Normal >=60 [facility] Comment on above: Performed By: #### P T #### [facility] [address] [place] [address] Dr. Mirian Velasco Globulin (S) [Mass/Vol] 3.7 g/dL Normal [facility] Comment on above: Performed By: #### P T #### [facility] [address] [address] [address] Mirian Velasco Glucose [Mass/Vol] 109 mg/dL Critically high 74-106 [facility] Comment on above: Performed By: #### P T #### [facility] [address] [place] [address] Dr. Mirian Velasco Potassium [Moles/Vol] 3.7 mmol/L Normal 3.5-5.1 [facility] Comment on above: Performed By: #### P T #### [facility] [address] [place] [address] Dr. Mirian Velasco Protein [Mass/Vol] 6.9 g/dL Normal 6.4-8.2 [facility] Comment on above: Performed By: #### P T #### [facility] [address] [place] [address] Dr. Mirian Velasco Sodium [Moles/Vol] 139 mmol/L Normal 136-145 [facility] Comment on above: Performed By: #### P T #### [facility] [address] [place] [address] Dr. Mirian Velasco Urea nitrogen [Mass/Vol] 13.0 mg/dL Normal 7.0-18.0 [facility] Comment on above: Performed By: #### P T #### [facility] [address] [place] [address] Dr. Mirian Velasco Urea nitrogen/Creatinine [Mass ratio] 19.1 mg/mg Normal [facility] Comment on above: Performed By: #### P T #### [facility] [address] [place] [address] Dr. Mirian Velasco URINE MICROSCOPIC ONLYon BACTERIA TRACE Abnormal NONE SEEN [facility] Comment on above: Performed By: #### P T #### [facility] [address] [place] [address] Dr. Mirian Velasco Bacteria identified Cx Nom (U) INDICATED Normal [facility] Comment on above: Performed By: #### P T #### [facility] [address] [place] [address] Dr. Mirian Velasco CAST NONE SEEN Normal NONE SEEN [facility] Comment on above: Performed By: #### P T #### [facility] [address] [address] [address] Mirian Velasco Crystals LM Nom (Urine sed) NONE SEEN Normal NONE SEEN [facility] Comment on above: Performed By: #### P T #### [facility] [address] [address] [address] Mirian Velasco Epithelial cells LM Ql (Urine sed) MODERATE Abnormal NONE SEEN /RARE [facility] Comment on above: Performed By: #### P T #### [facility] [address] [address] [address] Mirian Velasco MUCOUS NONE SEEN Normal NONE SEEN [facility] Comment on above: Performed By: #### P T #### [facility] [address] [address] [address] Mirian Velasco RBC NONE SEEN Abnormal 0-2 [facility] Comment on above: Performed By: #### P T #### [facility] [address] [address] [address] Mirian Velasco WBC 2-5 Abnormal NONE SEEN [facility] Comment on above: Performed By: #### P T #### [facility] [address] [address] [address] Mirian Velasco YEAST PRESENT Abnormal NONE SEEN [facility] Comment on above: Result Comment: RARE BUDDING YEAST Performed By: #### P T #### [facility] [address] [address] [address] Mirian Velasco POINT OF CARE GLUCOSEon 10-06 Glucose [Mass/Vol] 131 mg/dL Critically high 74-106 [facility] Comment on above: Performed By: #### P OCGLUC ####[facility] [id number] [address]Dr. Mirian Velasco Glucose [Mass/Vol] 113 mg/dL Critically high 74-106 [facility] Comment on above: Performed By: #### P OCGLUC ####[facility] [id number] [address]Dr. Mirian Velasco XR FOOT RT 2Von 10-17-2022 [...] NICKI DACOSTA Date: 2022-10-17 18:04 Normal [facility] Covid-19 PCR ([facility])on SARS-CoV-2 (COVID-19) RNA JOSÉ MIGUEL+probe Ql (Unsp spec) Not detected Normal NOT DETECTED [facility] Comment on above: Result Comment: This test is not yet approved or cleared by the [place] FDA. When there are no FDA-approved or cleared tests available, and other criteria are met, FDA can make tests available under an emergency access mechanism called an Emergency Use Authorization (EUA). The EUA for this test is supported by the Conservation Assistant of Health and Human Service's (HHS's) declaration [...] consistent with SARS-CoV-2. Performed By: #### [facility] #### [facility] [address] [address] [address] Mirian Velasco Diagnostic Mammogram, Unilat eral [...] VERY IMPORTANT TO YOUR HEALTH. THE CURRENT [place] [employer] OF [employer] AND NATIONAL COMPREHENSIVE CANCER NETWORK GUIDELINES RECOMMENDS ANNUAL MAMMOGRAPHY BEGINNING AT AGE 42 THIS FACILITY USES A REMINDER SYSTEM TO ENSURE ALL PATIENTS RECEIVE REMINDER NOTIFICATIONS AT THE APPROPRIATE TIME BASED ON THE RECOMMENDATIONS OF THIS EXAM. Board Certified Radiologist. Accredited by the ACR and FDA. Report reported and signed by Dawna Lizarraga on 09/28/2022 1307 Normal [facility] CBC AUTO DIFFon 09-26-2022 BASO # 0.1 103/ul Normal 0.0-0.1 [facility] Comment on above: Performed By: #### L ACT #### [facility] [address] [place] [address] Dr. Mirian Velasco Basophils/100 WBC (Bld) 0.8 % Normal 0.2-2.0 [facility] Comment on above: Performed By: #### L ACT #### [facility] [address] [address] [address] Mirian Velasco EO # 0.1 103/ul Normal 0.0-0.7 [facility] Comment on above: Performed By: #### L ACT #### [facility] [address] [place] [address] Dr. Mirian Velasco Eosinophils/100 WBC (Bld) 1.5 % Normal 0.9-7.0 [facility] Comment on above: Performed By: #### L ACT #### [facility] [address] [address] [address] Mirian Velasco Erythrocyte distribution width (RBC) [Ratio] 13.4 % Normal 11.0-15.0 [facility] Comment on above: Performed By: #### L ACT #### [facility] [address] [address] [address] Mirian Vealsco Hematocrit (Bld) [Volume fraction] 41.3 % Normal 36.0-48.0 [facility] Comment on above: Performed By: #### L ACT #### [facility] [address] [place] [address] Dr. Mirian Velasco Hemoglobin (Bld) [Mass/Vol] 13.4 g/dL Normal 12.0-16.0 [facility] Comment on above: Performed By: #### L ACT #### [facility] [address] [place] [address] Dr. Mirian Velasco IG # 0.04 10e3/ul Critically high 0.00-0.03 [facility] Comment on above: Performed By: #### L ACT #### [facility] [address] [place] [address] Dr. Mirian Velasco IG % 0.5 % Normal 0.0-0.5 [facility] Comment on above: Performed By: #### L ACT #### [facility] [address] [place] [address] Dr. Mirian Velasco LYMPH # 2.5 103/ul Normal 1.2-3.8 [facility] Comment on above: Performed By: #### L ACT #### [facility] [address] [place] [address] Dr. Mirian Velasco Lymphocytes/100 WBC (Bld) 27.7 % Normal 20.5-60.0 [facility] Comment on above: Performed By: #### L ACT #### [facility] [address] [place] [address] Dr. Mirian Velasco MANUAL DIFF REQ NO Normal [facility] Comment on above: Performed By: #### L ACT #### [facility] [address] [place] [address] Dr. Mirian Velasco MCH (RBC) [Entitic mass] 27.6 pg Normal 26.7-34.0 [facility] Comment on above: Performed By: #### L ACT #### [facility] [address] [place] [address] Dr. Mirian Velasco MCHC (RBC) [Mass/Vol] 32.4 g/dL Normal 29.9-35.2 [facility] Comment on above: Performed By: #### L ACT #### [facility] [address] [place] [address] Dr. Mirian Velasco MCV (RBC) [Entitic vol] 85.0 fL Normal 81.0-99.0 [facility] Comment on above: Performed By: #### L ACT #### [facility] [address] [place] [address] Dr. Mirian Velasco MONO # 0.6 103/ul Normal 0.3-0.8 [facility] Comment on above: Performed By: #### L ACT #### [facility] [address] [address] [address] Mirian Velasco Monocytes/100 WBC (Bld) 6.9 % Normal 1.7-12.0 [facility] Comment on above: Performed By: #### L ACT #### [facility] [address] [place] [address] Dr. Mirian Velasco NEUT # 5.6 103/ul Normal 1.4-6.5 [facility] Comment on above: Performed By: #### L ACT #### [facility] [address] [place] [address] Dr. Mirian Velasco Neutrophils/100 WBC (Bld) 62.6 % Normal 43.0-75.0 [facility] Comment on above: Performed By: #### L ACT #### [facility] [address] [place] [address] Dr. Mirian Velasco Platelet mean volume (Bld) [Entitic vol] 8.6 fL Critically low 9.5-13.5 [facility] Comment on above: Performed By: #### L ACT #### [facility] [address] [place] [address] Dr. Mirian Velasco PLT 372 103/ul Normal 150-450 [facility] Comment on above: Performed By: #### L ACT #### [facility] [address] [place] [address] Dr. Mirian Velasco RBC 4.86 106/ul Normal 4.20-5.40 [facility] Comment on above: Performed By: #### L ACT #### [facility] [address] [place] [address] Dr. Mirian Velasco WBC 8.9 103/ul Normal 4.0-11.0 [facility] Comment on above: Performed By: #### L ACT #### [facility] [address] [address] [address] Mirian Velasco PROF CHEM 8 (BAS METB)on Anion gap [Moles/Vol] 8.0 mmol/L Normal [facility] Comment on above: Performed By: #### P T #### [facility] [address] [place] [address] Dr. Mirian Velasco Calcium [Mass/Vol] 9.0 mg/dL Normal 8.5-10.1 [facility] Comment on above: Performed By: #### P T #### [facility] [address] [place] [address] Dr. Mirian Velasco Chloride [Moles/Vol] 106 mmol/L Normal 98-107 [facility] Comment on above: Performed By: #### P T #### [facility] [address] [place] [address] Dr. Mirian Velasco CO2 [Moles/Vol] 30.3 mmol/L Normal 21.0-32.0 [facility] Comment on above: Performed By: #### P T #### [facility] [address] [place] [address] Dr. Mirian Velasco Creatinine [Mass/Vol] 0.71 mg/dL Normal 0.55-1.02 [facility] Comment on above: Performed By: #### P T #### [facility] [address] [place] [address] Dr. Mirian Velasco EGFR-AF [place]QI >60 Normal >=60 [facility] Comment on above: Performed By: #### P T #### [facility] [address] [place] [address] Dr. Mirian Velasco EGFR-NON AF [place]QI >60 Normal >=60 [facility] Comment on above: Performed By: #### P T #### [facility] [address] [place] [address] Dr. Mirian Velasco Glucose [Mass/Vol] 81 mg/dL Normal 74-106 [facility] Comment on above: Performed By: #### P T #### [facility] [address] [address] [address] Mirian Velasco Potassium [Moles/Vol] 4.3 mmol/L Normal 3.5-5.1 [facility] Comment on above: Performed By: #### P T #### [facility] [address] [address] [address] Mirian Velasco Sodium [Moles/Vol] 140 mmol/L Normal 136-145 [facility] Comment on above: Performed By: #### P T #### [facility] [address] [address] [address] Mirian Velasco Urea nitrogen [Mass/Vol] 16.0 mg/dL Normal 7.0-18.0 [facility] Comment on above: Performed By: #### P T #### [facility] [address] [address] [address] Mirian Velasco Urea nitrogen/Creatinine [Mass ratio] 22.5 mg/mg Normal [facility] Comment on above: Performed By: #### P T #### [facility] [address] [address] [address] Mirian Velasco C reactive protein [Mass/vol ume] in Serum or PlasmaOrdered By: Beto Snyder on 09-22-2022 CRP [Mass/Vol] 0.6 mg/dL 0.0-1.[address] [facility] C-Reactive Proteinon 022 C-Reactive Protein 0.6 mg/dL Normal 0.0-1.0 mg/dL [facility] Other Erythrocyte Sedimentation Ra lian 09-22-2022 ESR (Bld) [Velocity] 4 mm/h Normal 0-29 [facility] Other Erythrocyte sedimentation ra te by Photometric methodOrdered By: Beto Snyder on 09-22-2022 ESR Photometric method (Bld) [Velocity] 4 mm/hr 0-[address] [facility] Serum nuclear antibody titer Ordered By: Beto Snyder on 09-22-2022 Nuclear Ab (S) [Titer] Negative . [facility] Comment on above: Negative <1:80 Julio handine 1:80 Positive >1:80ICAP nomenclature: AC-0For more information about Hep-2 cell patterns useANApatterns.org, the official website for theInternational Consensus on Antinuclear Antibody (CHUYITA)Patterns (ICAP).Performed at: [facility] [address] [id number] Director: Erick Neville PhD, Phone: [phone] Serum or plasma rheumatoid f actor measurement (units/volume)Ordered By: Beto Snyder on 09-22-2022 Rheumatoid factor Qn [IU]/mL <14.0 [facility] Comment on above: Performed at: [facility] [address] [id number] Director: Erick Neville PhD, Phone: [phone] Serum or plasma thyroxine (T 4) measurement (mass/volume)Ordered By: Beto Snyder on 09-22-2022 T4 [Mass/Vol] 9.82 ug/dL 5.39-11.[address] [facility] Serum or plasma uric acid me asurement (mass/volume)Ordered By: Beto Snyder on 09-22-2022 Urate [Mass/Vol] 4.2 mg/dL 2.6-7.2 [facility] TSH DL <= 0.005 mIU/L QnOrde red By: Beto Snyder on 09-22-2022 TSH Qn 1.98 m[IU]/L 0.45-5.[address] [facility] Thyroid Stimulating Hormoneo n 09-22-2022 TSH Qn 1.52554147055 m[IU]/L Normal 0.45-5 .33 u[iU]/mL [facility] Other Thyroxine (T4) Totalon 09-22 Thyroxine (T4) Total 9.82 ug/dL Normal 5.39-11 .82 ug/dL [facility] Other Uric Acidon 09-22-2022 Urate [Mass/Vol] 4.8078363 mg/dL Normal 2.6-7.2 mg/dL [facility] Other XR knee BI 2Von 09-22-2022 XR knee BI 2V [facility] Other XR knee BI 2V [facility] Other XR knee BI 2V [address] [facility] Other XR knee BI 2V [place] [id number] [facility] Other XR knee BI 2V XRay Report [facility] Other XR knee BI 2V Signed [facility] Other XR knee BI 2V Patient: Darrian Leal jonathan Keys MR#: [id number] [facility] Other XR knee BI 2V 863 [facility] Other XR knee BI 2V : 1970 Acct:[id number] [facility] Other XR knee BI 2V Age/Sex: 52 / F ADM Date: 09/22/22 [facility] Other XR knee BI 2V Loc: [facility] Room: Type : REG CLI [facility] Other XR knee BI 2V Attending Dr: Beto Snyder MD [facility] Other XR knee BI 2V Copies to: Beto Snyder MD [facility] Other XR knee BI 2V Ordering Provider: Beto Snyder MD [facility] Other XR knee BI 2V Date of Service: 09/22/22 [facility] Other XR knee BI 2V XR/XR knee BI 2V: Knee pain [facility] Other XR knee BI 2V XR knee BI 2V 09/22/2022 9:23 AM [facility] Other XR knee BI 2V SIGNS AND SYMPTOMS: Bilateral knee pain right greater than left [facility] Other XR knee BI 2V PROTOCOL: Frontal an d lateral radiographs of the bilateral knees [facility] Other XR knee BI 2V COMPARISON: None [facility] Other XR knee BI 2V FINDINGS: [facility] Other XR knee BI 2V There is evidence of prior ACL repair in the left knee with mild narrowing of the weightbearing [facility] Other XR knee BI 2V joint spaces on the left. The joint spaces are otherwise preserved. There is no fracture or [facility] Other XR knee BI 2V dislocation. No join t effusion or soft tissue swelling. [facility] Other XR knee BI 2V XR/XR knee BI 2V [facility] Other XR knee BI 2V IMPRESSION: [employer] Other XR knee BI 2V Status post ACL repa ir on the left. [facility] Other XR knee BI 2V Mild degenerative changes are noted in the weightbearing joint spaces of the left. [facility] Other XR knee BI 2V No acute bony injury. [facility] Other XR knee BI 2V Impression dictated by: Rajiv Garcia M.D.09/22/2022 2:17 PM [facility] Other XR knee BI 2V Dictation Location: [place] [address] [facility] Other XR knee BI 2V Transcribed By: MARIO 09/22/22 [facility] Other XR knee BI 2V Dictated By: Rajiv Garcia II, MD 09/22/22 [facility] Other XR knee BI 2V Signed By: [facility] Other XR knee BI 2V 09/22/22 1417 [employer] Other XR shoulder BI min 2Von 09-06 XR shoulder BI min 2V XR/XR shoulder BI min 2V: Shoulder pain [facility] Other XR shoulder BI min 2V XR shoulder BI min 2V 09/22/2022 9:23 AM [facility] Other XR shoulder BI min 2V SIGNS AND SYMPTOMS : Bilateral shoulder pain with limited range of motion [facility] Other XR shoulder BI min 2V PROTOCOL: Frontal, Grashey, scapular Y, and axillary views of the bilateral shoulders [facility] Other XR shoulder BI min 2V COMPARISON: 02/26/2018 [facility] Other XR shoulder BI min 2V There has been bon y resorption of the lateral margin of the clavicle on the right suggesting [facility] Other XR shoulder BI min 2V osteomyelitis is w hich may be degenerative or traumatic. Mild hypertrophy of the AC joint is noted. [facility] Other XR shoulder BI min 2V The glenohumeral j oint is preserved on the right. There is subcortical sclerosis greater tuberosity [facility] Other XR shoulder BI min 2V of the right suggesting underlying rotator cuff abnormalities. This is new when compared to the [facility] Other XR shoulder BI min 2V prior exam. The visualized right hemithorax is grossly intact. [facility] Other XR shoulder BI min 2V There is mild hypertrophy of the left acromioclavicular joint. There is mild subcortical sclerosis [facility] Other XR shoulder BI min 2V of the greater tuberosity in the left suggesting underlying rotator cuff abnormalities. The [facility] Other XR shoulder BI min 2V glenohumeral joint is preserved. There is no fracture or dislocation. Visualized left hemithorax is [facility] Other XR shoulder BI min 2V grossly intact. [facility] Other XR shoulder BI min 2V There is partial visualization of intervertebral disc arthroplasty is noted within the lower [facility] Other XR shoulder BI min 2V cervical spine. 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 CURRENT [place] [employer] AND N[employer] COMPREHENSIVE CANC[employer] NETWORK GUIDELINES RECOMMENDS ANNUAL MAMMOGRAPHY BEGINNING AT AGE 42. THIS FACILITY USUALLY USES A REMINDER SYSTEM TO ENSURE ALL POSITIONS RECEIVED REMINDER NOTIFICATIONS AT THE TIME BASED ON THE RECOMMENDATIONS OF THIS EXAM. Report reported and signed by Zaida Diaz on 09/16/2022 1334 Normal [facility] Disaster Recovery Manager Tobacco Screening.on 022 Adult depression screening assessment No [facility] [facility] [address] DO Work Phone: Tobacco use status [facility] b) No [facility] DO Work Phone: COVID Quick Testingon 2021 Result Negative [facility] Other AMYLASEon 04-17-2022 Amylase [Catalytic activity/Vol] 38 U/L Normal 25-115 [facility] Comment on above: Performed By: #### P T #### [facility] [address] [place] [address] Dr. Mirian Velasco CBC AUTO DIFFon 04-17-2022 BASO # 0.1 103/ul Normal 0.0-0.1 [facility] Comment on above: Performed By: #### L ACT #### [facility] [address] [address] [address] Mirian Velasco Basophils/100 WBC (Bld) 1.0 % Normal 0.2-2.0 [facility] Comment on above: Performed By: #### L ACT #### [facility] [address] [address] [address] Mirian Velasco EO # 0.2 103/ul Normal 0.0-0.7 [facility] Comment on above: Performed By: #### L ACT #### [facility] [address] [place] [address] Dr. Mirian Velasco Eosinophils/100 WBC (Bld) 3.3 % Normal 0.9-7.0 [facility] Comment on above: Performed By: #### L ACT #### [facility] [address] [place] [address] Dr. Mirian Velasco Erythrocyte distribution width (RBC) [Ratio] 12.0 % Normal 11.0-15.0 [facility] Comment on above: Performed By: #### L ACT #### [facility] [address] [place] [address] Dr. Mirian Velasco Hematocrit (Bld) [Volume fraction] 37.3 % Normal 36.0-48.0 [facility] Comment on above: Performed By: #### L ACT #### [facility] [address] [place] [address] Dr. Mirian Velasco Hemoglobin (Bld) [Mass/Vol] 12.1 g/dL Normal 12.0-16.0 [facility] Comment on above: Performed By: #### L ACT #### [facility] [address] [place] [address] Dr. Mirian Velasco IG # 0.03 10e3/ul Normal 0.00-0.03 [facility] Comment on above: Performed By: #### L ACT #### [facility] [address] [place] [address] Dr. Mirian Velasco IG % 0.4 % Normal 0.0-0.5 [facility] Comment on above: Performed By: #### L ACT #### [facility] [address] [place] [address] Dr. Mirian Velasco LYMPH # 1.8 103/ul Normal 1.2-3.8 [facility] Comment on above: Performed By: #### L ACT #### [facility] [address] [place] [address] Dr. Mirian Velasco Lymphocytes/100 WBC (Bld) 25.2 % Normal 20.5-60.0 [facility] Comment on above: Performed By: #### L ACT #### [facility] [address] [place] [address] Dr. Mirian Velasco MANUAL DIFF REQ NO Normal [facility] Comment on above: Performed By: #### L ACT #### [facility] [address] [place] [address] Dr. Mirian Velasco MCH (RBC) [Entitic mass] 29.0 pg Normal 26.7-34.0 [facility] Comment on above: Performed By: #### L ACT #### [facility] [address] [place] [address] Dr. Mirian Velasco MCHC (RBC) [Mass/Vol] 32.4 g/dL Normal 29.9-35.2 [facility] Comment on above: Performed By: #### L ACT #### [facility] [address] [place] [address] Dr. Mirian Velasco MCV (RBC) [Entitic vol] 89.4 fL Normal 81.0-99.0 [facility] Comment on above: Performed By: #### L ACT #### [facility] [address] [place] [address] Dr. Mirian Velasco MONO # 0.4 103/ul Normal 0.3-0.8 [facility] Comment on above: Performed By: #### L ACT #### [facility] [address] [place] [address] Dr. Mirian Velasco Monocytes/100 WBC (Bld) 5.8 % Normal 1.7-12.0 [facility] Comment on above: Performed By: #### L ACT #### [facility] [address] [place] [address] Dr. Mirian Velasco NEUT # 4.6 103/ul Normal 1.4-6.5 [facility] Comment on above: Performed By: #### L ACT #### [facility] [address] [place] [address] Dr. Mirian Velasco Neutrophils/100 WBC (Bld) 64.3 % Normal 43.0-75.0 [facility] Comment on above: Performed By: #### L ACT #### [facility] [address] [place], [place] [address] Dr. Mirian Velasco Platelet mean volume (Bld) [Entitic vol] 8.6 fL Critically low 9.5-13.5 [facility] Comment on above: Performed By: #### L ACT #### [facility] [address] [place], [place] [address] Dr. Mirian Velasco PLT 597 103/ul Critically high 150-450 [facility] Comment on above: Performed By: #### L ACT #### [facility] [address] [place], [place] [address] Dr. Mirian Velasco RBC 4.17 106/ul Critically low 4.20-5.40 [facility] Comment on above: Performed By: #### L ACT #### [facility] [id number] Mirian Velasco WBC 7.2 103/ul Normal 4.0-11.0 [facility] Comment on above: Performed By: #### L ACT #### [facility] [address] [place], [place] [address] ABD/PELVIS WO CONon [...] LORRI TRIPLETT Date: 2022-04-17 11:19 Normal [facility] URINE PROFILEon 2 Bilirubin Ql (U) Negative Normal NEGATIVE [facility] Comment on above: Performed By: #### P T #### [facility] [address] [place] [address] Dr. Mirian Velasco Clarity (U) CLEAR Normal CLEAR [facility] Comment on above: Performed By: #### P T #### [facility] [address] [place] [address] Dr. Mirian Velasco Color (U) YELLOW Normal YELLOW [facility] Comment on above: Performed By: #### P T #### [facility] [address] [place] [address] Dr. Mirian KING A micrscopic examination will be performed if indicated. Normal [facility] Comment on above: Performed By: #### P T #### [facility] [address] [address] [address] Mirian Velasco Glucose Ql (U) Negative Normal NEGATIVE [facility] Comment on above: Performed By: #### P T #### [facility] [address] [place] [address] Dr. Mirian Velasco Hemoglobin Ql (U) Negative Normal NEGATIVE [facility] Comment on above: Performed By: #### P T #### [facility] [address] [place] [address] Dr. Mirian Velasco Ketones Ql (U) Negative Normal NEGATIVE [facility] Comment on above: Performed By: #### P T #### [facility] [address] [place] [address] Dr. Mirian Velasco LEUKOCYTES Negative Normal NEGATIVE [facility] Comment on above: Performed By: #### P T #### [facility] [address] [place] [address] Dr. Mirian Velasco Nitrite Ql (U) Negative Normal NEGATIVE [facility] Comment on above: Performed By: #### P T #### [facility] [address] [place] [address] Dr. Mirian Velasco pH (U) 5.5 [pH] Normal 5-9 [facility] Comment on above: Performed By: #### P T #### [facility] [address] [place] [address] Dr. Mirian Velasco SPEC GRAVITY >=1.030 Abnormal 1.005-<=1.025 [facility] Comment on above: Performed By: #### P T #### [facility] [address] [place] [address] Dr. Mirian Velasco UA PROTEIN Negative Normal NEGATIVE/ TRACE [facility] Comment on above: Performed By: #### P T #### [facility] [address] [place] [address] Dr. Mirian Velasco UR MICRO IND NOT INDICATED Normal [facility] Comment on above: Performed By: #### P T #### [facility] [address] [place] [address] Dr. Mirian Velasco Urobilinogen Qn (U) 0.2 {Lyubov'U}/dL Normal 0.2 - 1. 0 [facility] Comment on above: Performed By: #### P T #### [facility] [address] [place] [address] Dr. Mirian Velasco LIPASEon 04-17-2022 Lipase [Catalytic activity/Vol] 117.0 U/L Normal 73.0-393.0 [facility] Comment on above: Performed By: #### P T #### [facility] [address] [address] [address] Mirian Velasco PROF 14(COMP METB)on 022 Albumin [Mass/Vol] 3.5 g/dL Normal 3.4-5.0 [facility] Comment on above: Performed By: #### P T #### [facility] [address] [address] [address] Mirian Velasco Albumin/Globulin [Mass ratio] 0.9 {ratio} Normal [facility] Comment on above: Performed By: #### P T #### [facility] [address] [place] [address] Dr. Mirian Velasco ALP [Catalytic activity/Vol] 237 U/L Critically high 46-116 [facility] Comment on above: Performed By: #### P T #### [facility] [address] [place] [address] Dr. Mirian Velasco ALT [Catalytic activity/Vol] 53 U/L Normal 14-59 [facility] Comment on above: Performed By: #### P T #### [facility] [address] [place] [address] Dr. Mirian Velasco Anion gap [Moles/Vol] 11.0 mmol/L Normal [facility] Comment on above: Performed By: #### P T #### [facility] [address] [place] [address] Dr. Mirian Velasco AST [Catalytic activity/Vol] 45 U/L Critically high 15-37 [facility] Comment on above: Performed By: #### P T #### [facility] [address] [place] [address] Dr. Mirian Velasco Bilirubin [Mass/Vol] 0.2 mg/dL Normal 0.2-1.0 [facility] Comment on above: Performed By: #### P T #### [facility] [address] [place] [address] Dr. Mirian Velasco Calcium [Mass/Vol] 9.3 mg/dL Normal 8.5-10.1 [facility] Comment on above: Performed By: #### P T #### [facility] [address] [place] [address] Dr. Mirian Velasco Chloride [Moles/Vol] 105 mmol/L Normal 98-107 [facility] Comment on above: Performed By: #### P T #### [facility] [address] [place] [address] Dr. Mirian Velasco CO2 [Moles/Vol] 29.5 mmol/L Normal 21.0-32.0 [facility] Comment on above: Performed By: #### P T #### [facility] [address] [place] [address] Dr. Mirian Velasco Creatinine [Mass/Vol] 0.69 mg/dL Normal 0.55-1.02 [facility] Comment on above: Performed By: #### P T #### [facility] [address] [place] [address] Dr. Mirian Velasco EGFR-AF IRAQI >110 Normal >=60 [facility] Comment on above: Performed By: #### P T #### [facility] [address] [place] [address] Dr. Mirian Velasco EGFR-NON AF IRAQI >90 Normal >=60 [facility] Comment on above: Performed By: #### P T #### [facility] [address] [place] [address] Dr. Mirian Velasco Globulin (S) [Mass/Vol] 4.0 g/dL Normal [facility] Comment on above: Performed By: #### P T #### [facility] [address] [place] [address] Dr. Mirian Velasco Glucose [Mass/Vol] 107 mg/dL Critically high 74-106 [facility] Comment on above: Performed By: #### P T #### [facility] [address] [place] [address] Dr. Mirian Velasco Potassium [Moles/Vol] 4.5 mmol/L Normal 3.5-5.1 [facility] Comment on above: Performed By: #### P T #### [facility] [address] [place] [address] Dr. Mirian Velasco Protein [Mass/Vol] 7.5 g/dL Normal 6.4-8.2 [facility] Comment on above: Performed By: #### P T #### [facility] [address] [address] [address] Mirian Velasco Sodium [Moles/Vol] 141 mmol/L Normal 136-145 [facility] Comment on above: Performed By: #### P T #### [facility] [address] [address] [address] Mirian Velasco Urea nitrogen [Mass/Vol] 11.0 mg/dL Normal 7.0-18.0 [facility] Comment on above: Performed By: #### P T #### [facility] [address] [address] [address] Mirian Velasco Urea nitrogen/Creatinine [Mass ratio] 15.9 mg/mg Normal [facility] Comment on above: Performed By: #### P T #### [facility] [address] [place] [address] Dr. Mirian Velasco XR CHEST 1 Von 04-17-2022 XR CHEST 1 V EXAM: Chest x-ray HISTORY: Pain. COMPARISON: 02/20/2022 TECHNIQUE: AP portable upright view of the chest. FINDINGS: Heart and Vascularity are unremarkable. Lungs are free of focal infiltrates. No effusions are noted. Impression: No acute heart or lung disease identified. Electronically authenticated by: NICKI BUTT Date: 2022-04-17 11:03 Normal [facility] Basic metabolic 2000 panelon 04-05-2022 Anion gap [Moles/Vol] 13 mmol/L Normal 9-18 [facility] Comment on above: Order Comment: Speci men Type: BLOOD SPECIMEN Ordering Facility: [facility] Address: [address] [place] [id number] Performed By: #### 5 8410-2 #### [facility] CLIA [id number] [place] [address] [place] Calcium [Mass/Vol] 9.0 mg/dL Normal 8.5-10.2 [facility] Comment on above: Order Comment: Speci men Type: BLOOD SPECIMEN Ordering Facility: [facility] Address: [address] [place] [address] Performed By: #### 5 8410-2 #### [facility] CLIA [id number] [address] [place] [address] [place] Chloride [Moles/Vol] 104 mmol/L Normal 97-105 [facility] Comment on above: Order Comment: Speci men Type: BLOOD SPECIMEN Ordering Facility: [facility] Address: [address] [place] [address] Performed By: #### 5 8410-2 #### [facility] CLIA [id number] [address] [place] [address] [place] CO2 [Moles/Vol] 25 mmol/L Normal 22-30 [facility] Comment on above: Order Comment: Speci men Type: BLOOD SPECIMEN Ordering Facility: [facility] Address: [address] [place] [address] Performed By: #### 5 8410-2 #### [facility] CLIA [id number] [address] [place] [address] [place] Creatinine [Mass/Vol] 0.65 mg/dL Normal 0.58-0.96 [facility] Comment on above: Order Comment: Speci men Type: BLOOD SPECIMEN Ordering Facility: [facility] Address: [address] [place] [address] Performed By: #### 5 8410-2 #### [facility] CLIA [id number] [address] [place] [address] [place] ESTIMATED GLOMERULAR FILTRATION RATE 108 mL/min/1.73m??? Normal >=60 [facility] Comment on above: Order Comment: Speci men Type: BLOOD SPECIMEN Ordering Facility: [facility] Address: [address] [place] [address] Result Comment: Mary mated Glomerular Filtration Rate [...] GFR. Performed By: #### 5 8410-2 #### [facility] CLIA [id number] [address] [place] [address] [place] Glucose [Mass/Vol] 109 mg/dL High 74-99 [facility] Comment on above: Order Comment: Leanne terry Type: BLOOD SPECIMEN Ordering Facility: [facility] Address: [address] [place] [address] Result Comment: The [place] [employer] (ADA) provides guidance for cutoff [...] Standards of Medical Care in Diabetes 2016, [place] [employer]. Diabetes Care. 2016.39(Suppl 1). Performed By: #### 5 8410-2 #### [facility] CLIA [id number] [address] [place] [address] [place] Potassium [Moles/Vol] 3.9 mmol/L Normal 3.7-5.1 [facility] Comment on above: Order Comment: Leanne terry Type: BLOOD SPECIMEN Ordering Facility: [facility] Address: [address] [place] [address] Performed By: #### 5 8410-2 #### [facility] CLIA [id number] [address] [place] [address] [place] Sodium [Moles/Vol] 142 mmol/L Normal 136-144 [facility] Comment on above: Order Comment: Leanne terry Type: BLOOD SPECIMEN Ordering Facility: [facility] Address: [address] [place] [address] Performed By: #### 5 8410-2 #### [facility] CLIA [id number] [address] [place] [address] [place] Urea nitrogen [Mass/Vol] 7 mg/dL Normal 7-21 [facility] Comment on above: Order Comment: Speci men Type: BLOOD SPECIMEN Ordering Facility: [facility] Address: [address] [place] [address] Performed By: #### 5 8410-2 #### [facility] CLIA [id number] [address] [place] [address] [place] CBC W Auto Differential pane l (Bld)on 04-05-2022 Basophils (Bld) [#/Vol] 0.05 10*3/uL Normal <0.11 [facility] Comment on above: Order Comment: Speci men Type: BLOOD SPECIMENOrdering Facility: [facility] Address: [address] [place] [address] Performed By: #### B MP #### [place] [phone] Basophils/100 WBC (Bld) 0.7 % Normal [facility] Comment on above: Order Comment: Speci men Type: BLOOD SPECIMENOrdering Facility: [facility] Address: [address] [place] [address] Performed By: #### B MP #### [phone] Differential cell count method Nom (Bld) Auto Normal [facility] Comment on above: Order Comment: Speci men Type: BLOOD SPECIMENOrdering Facility: [facility] Address: [address] [place] [address] Performed By: #### B MP #### [phone] Eosinophils (Bld) [#/Vol] 0.55 10*3/uL High <0.46 [facility] Comment on above: Order Comment: Speci men Type: BLOOD SPECIMENOrdering Facility: [facility] Address: [address] [place] [address] Performed By: #### B MP #### [place] [phone] Eosinophils/100 WBC (Bld) 8.2 % Normal [facility] Comment on above: Order Comment: Speci men Type: BLOOD SPECIMENOrdering Facility: [facility] Address: [address] [place] [address] Performed By: #### B MP #### [place] [phone] Erythrocyte distribution width (RBC) [Ratio] 12.8 % Normal 11.5-15.0 [facility] Comment on above: Order Comment: Speci men Type: BLOOD SPECIMENOrdering Facility: [facility] Address: [address] [place] [address] Performed By: #### B MP #### [phone] Hematocrit (Bld) [Volume fraction] 31.1 % Low 36.0-46.0 [facility] Comment on above: Order Comment: Speci men Type: BLOOD SPECIMENOrdering Facility: [facility] Address: [address] [place] [address] Performed By: #### B MP #### [place] [phone] Hemoglobin (Bld) [Mass/Vol] 10.5 g/dL Low 11.5-15.5 [facility] Comment on above: Order Comment: Speci men Type: BLOOD SPECIMENOrdering Facility: [facility] Address: [address] [place] [address] Performed By: #### B MP #### [place] [phone] IMMATURE GRAN % 0.4 % Normal [facility] Comment on above: Order Comment: Speci men Type: BLOOD SPECIMENOrdering Facility: [facility] Address: [address] [place] [address] Performed By: #### B MP #### [place] [phone] IMMATURE GRAN ABS 0.03 k/uL Normal <0.10 [facility] Comment on above: Order Comment: Speci men Type: BLOOD SPECIMENOrdering Facility: [facility] Address: [address] [place] [address] Performed By: #### B MP #### [place] [phone] Lymphocytes (Bld) [#/Vol] 1.47 10*3/uL Normal 1.00-4.00 [facility] Comment on above: Order Comment: Speci men Type: BLOOD SPECIMENOrdering Facility: [facility] Address: [address] [place] [address] Performed By: #### B MP #### [phone] Lymphocytes/100 WBC (Bld) 22.0 % Normal [facility] Comment on above: Order Comment: Speci men Type: BLOOD SPECIMENOrdering Facility: [facility] Address: [address] [place] [address] Performed By: #### B MP #### [place] [phone] MCH (RBC) [Entitic mass] 29.9 pg Normal 26.0-34.0 [facility] Comment on above: Order Comment: Speci men Type: BLOOD SPECIMENOrdering Facility: [facility] Address: [address] [place] [address] Performed By: #### B MP #### [place] [phone] MCHC (RBC) [Mass/Vol] 33.8 g/dL Normal 30.5-36.0 [facility] Comment on above: Order Comment: Speci men Type: BLOOD SPECIMENOrdering Facility: [facility] Address: [address] [place] [address] Performed By: #### B MP #### [place] [phone] MCV (RBC) [Entitic vol] 88.6 fL Normal 80.0-100.0 [facility] Comment on above: Order Comment: Speci men Type: BLOOD SPECIMENOrdering Facility: [facility] Address: [address] [place] [address] Performed By: #### B MP #### [place] [phone] Monocytes (Bld) [#/Vol] 0.50 10*3/uL Normal <0.87 [facility] Comment on above: Order Comment: Speci men Type: BLOOD SPECIMENOrdering Facility: [facility] Address: [address] [place] [address] Performed By: #### B MP #### [phone] Monocytes/100 WBC (Bld) 7.5 % Normal [facility] Comment on above: Order Comment: Speci men Type: BLOOD SPECIMENOrdering Facility: [facility] Address: [address] [place] [address] Performed By: #### B MP #### [place] [phone] Neutrophils (Bld) [#/Vol] 4.08 10*3/uL Normal 1.45-7.50 [facility] Comment on above: Order Comment: Speci men Type: BLOOD SPECIMENOrdering Facility: [facility] Address: [address] [place] [address] Performed By: #### B MP #### [place] [phone] Neutrophils/100 WBC (Bld) 61.2 % Normal [facility] Comment on above: Order Comment: Speci men Type: BLOOD SPECIMENOrdering Facility: [facility] Address: [address] [place] [address] Performed By: #### B MP #### [phone] Nucleated RBC (Bld) [#/Vol] 10*3/uL Normal <0.01 [facility] Comment on above: Order Comment: Speci men Type: BLOOD SPECIMENOrdering Facility: [facility] Address: [address] [place] [address] Performed By: #### B MP #### [place] [phone] Nucleated RBC/100 WBC (Bld) [Ratio] 0.0 /100 WBC Normal [facility] Comment on above: Order Comment: Speci men Type: BLOOD SPECIMENOrdering Facility: [facility] Address: [address] [place] [address] Performed By: #### B MP #### [place] [phone] Platelet mean volume (Bld) [Entitic vol] 8.9 fL Low 9.0-12.7 [facility] Comment on above: Order Comment: Speci men Type: BLOOD SPECIMENOrdering Facility: [facility] Address: [address] [place] [address] Performed By: #### B MP #### [place] [phone] Platelets (Bld) [#/Vol] 455 10*3/uL High 150-400 [facility] Comment on above: Order Comment: Speci men Type: BLOOD SPECIMENOrdering Facility: [facility] Address: [address] [place] [address] Performed By: #### B MP #### [phone] RBC (Bld) [#/Vol] 3.51 10*6/uL Low 3.90-5.20 [facility] Comment on above: Order Comment: Speci men Type: BLOOD SPECIMENOrdering Facility: [facility] Address: [address] [place] [address] Performed By: #### B MP #### [place] [phone] WBC (Bld) [#/Vol] 6.68 10*3/uL Normal 3.70-11.00 [facility] Comment on above: Order Comment: Speci men Type: BLOOD SPECIMENOrdering Facility: [facility] Address: [facility] [place] [address] Performed By: #### B #### [place] [id number] [place] [address] Ray 04-05-2022 CN HNO ID: [id number] Author: Jessi Sheets APRN.METAL FURRER Service: Colorectal Author Type: Nurse Practitioner Type: [...] of the summary. CONSULTING TEAMS DURING HOSPITALIZATION: [facility] Treatment Team: Attending Provider: Mary Obrien MD [...] only. Pain controlled with TAPs and a DANCE THERAPIST. Remained nauseated. POD4 re-advanced to full liquids [...] by mo (more content not included)... Normal [facility] Magnesium SerPl-mCncon 04-05 Magnesium [Mass/Vol] 2.0 mg/dL Normal 1.7-2.3 [facility] Comment on above: Order Comment: Speci men Type: BLOOD SPECIMEN Ordering Facility: [facility] Address: [address] [place] [address] Performed By: #### 5 8410-2 #### [facility] CLIA [id number] [address] [place] [address] [place] NURSING PROGon 04-05-2022 NURSING PROG HNO ID: [id number] Author: Liliana Mayer RN Service: ? 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 This note was completed by: Liliana Mayer [facility] NURSING PROG HNO ID: [id number] Author: Liliana Mayer RN Service: ? Author [...] This note was completed by: Liliana Mayer [facility] NURSING PROG HNO ID: [id number] Author: Eagle Gu RN Service: ? Author Type: Registered Nurse Type: Nursing Progress Note Filed: 04/04/2022 10:58 PM Note Text: Nursing Progress Note Patient Name: Mary Leal Patient Location: __ Daily Note:04/04/22 2140 Pt is alert and oriented x3. Pt mabulating independently. Surgical sites intact. Pt refusing IVF, pt states she drinks enough water. This note was completed by: Eagle Gu [facility] NUTRITIONon 04-05-2022 NUTRITION HNO ID: [id number] Author: Merced Morales DTR Service: Nutrition Therapy Author Type: Dramatic Teacher Type: Nutrition Filed: 04/05/2022 10:42 AM Note Text: NUTRITION THERAPY VALET PARKER NOTE SERVICE DATE: 04/05/2022 SERVICE TIME: 9:45 [...] DATE: April 05, 2022 TIME: 9:54 AM [facility] Phosphate SerPl-mCncon 04-05 Phosphate [Mass/Vol] 4.6 mg/dL Normal 2.7-4.8 [facility] Comment on above: Order Comment: Speci men Type: BLOOD SPECIMEN Ordering Facility: [facility] Address: [address] [place], [place] [address] Performed By: #### 5 8410-2 #### [facility] CLIA [id number] [address] [place] [address] [place] Basic metabolic 2000 panelon 04-04-2022 Anion gap [Moles/Vol] 10 mmol/L Normal 9-18 [facility] Comment on above: Order Comment: Speci men Type: BLOOD SPECIMENOrdering Facility: [facility] Address: [address] [place], [place] [address] Performed By: #### 2 4321-2, , 2776-11 ####[facility] [id number] [place] [id number] [place] Calcium [Mass/Vol] 8.9 mg/dL Normal 8.5-10.2 [facility] Comment on above: Order Comment: Speci men Type: BLOOD SPECIMENOrdering Facility: [facility] Address: [address] [place] [address] Performed By: #### 2 4321-2, , 2776-11 ####[facility] [id number] [place] [address] [place] Chloride [Moles/Vol] 104 mmol/L Normal 97-105 [facility] Comment on above: Order Comment: Speci men Type: BLOOD SPECIMENOrdering Facility: [facility] Address: [address] [place], [place] [address] Performed By: #### 2 4321-2, , 2776-11 ####[facility] [id number] [place] [id number] [place] CO2 [Moles/Vol] 26 mmol/L Normal 22-30 [facility] Comment on above: Order Comment: Speci men Type: BLOOD SPECIMENOrdering Facility: [facility] Address: [address] [place], [place] [address] Performed By: #### 2 4321-2, , 2776-11 ####[facility] [id number] [place] [id number] [place] Creatinine [Mass/Vol] 0.56 mg/dL Low 0.58-0.96 [facility] Comment on above: Order Comment: Leanne terry Type: BLOOD SPECIMENOrdering Facility: [facility] Address: [address] [place] [address] Performed By: #### 2 4321-2, 43962-9, 2776-11 ####[facility] [id number] [place] [id number] [place] ESTIMATED GLOMERULAR FILTRATION RATE 112 mL/min/1.73m??? Normal >=60 [facility] Comment on above: Order Comment: Everette harrison Type: BLOOD SPECIMENOrdering Facility: [facility] Address: [address] [place] [address] Result Comment: Mary mated Glomerular Filtration Rate [...] Performed By: #### 2 4321-2, , 2776-11 ####[facility] [id number] [place] [id number] [place] Glucose [Mass/Vol] 112 mg/dL High 74-99 [facility] Comment on above: Order Comment: Leanne terry Type: BLOOD SPECIMENOrdering Facility: [facility] Address: [address] [place] [address] Result Comment: The [place] [employer] (ADA) provides guidance for cutoff [...] Standards of Medical Care in Diabetes 2016, [place] [employer]. Diabetes Care. 2016.39(Suppl 1). Performed By: #### 2 4321-2, 68795-2, 2776-11 ####[facility] [id number] [place] [id number] [place] Potassium [Moles/Vol] 3.9 mmol/L Normal 3.7-5.1 [facility] Comment on above: Order Comment: Speci men Type: BLOOD SPECIMENOrdering Facility: [facility] Address: [address] Performed By: #### 2 4321-2, , 2776-11 ####[facility] [id number] [place] [address] [place] Sodium [Moles/Vol] 140 mmol/L Normal 136-144 [facility] Comment on above: Order Comment: Speci men Type: BLOOD SPECIMENOrdering Facility: [facility] Address: [address] [place] [address] Performed By: #### 2 4321-2, , 2776-11 ####[facility] [id number] [place] [id number] [place] Urea nitrogen [Mass/Vol] 3 mg/dL Low 7-21 [facility] Comment on above: Order Comment: Speci men Type: BLOOD SPECIMENOrdering Facility: [facility] Address: [address] [place] [address] Performed By: #### 2 4321-2, , 2776-11 ####[facility]ORYCLIA [id number] [place] [id number] [place] CBC W Auto Differential pane l (Bld)on 04-04-2022 Basophils (Bld) [#/Vol] 0.03 10*3/uL Normal <0.11 [facility] Comment on above: Order Comment: Speci men Type: BLOOD SPECIMEN Ordering Facility: [facility] Address: [address] [place] [address] Performed By: #### 5 7021-8 #### [facility] CLIA [id number] [address] [place] [address] [place] Basophils/100 WBC (Bld) 0.5 % Normal [facility] Comment on above: Order Comment: Speci men Type: BLOOD SPECIMEN Ordering Facility: [facility] Address: [address] [place] [address] Performed By: #### 5 7021-8 #### [facility] CLIA [id number] [address] [place] [address] [place] Differential cell count method Nom (Bld) Auto Normal [facility] Comment on above: Order Comment: Speci men Type: BLOOD SPECIMEN Ordering Facility: [facility] Address: [address] [place] [address] Performed By: #### 5 7021-8 #### [facility] CLIA [id number] [address] [place] [address] [place] Eosinophils (Bld) [#/Vol] 0.48 10*3/uL High <0.46 [facility] Comment on above: Order Comment: Speci men Type: BLOOD SPECIMEN Ordering Facility: [facility] Address: [address] [place] [address] Performed By: #### 5 7021-8 #### [facility] CLIA [id number] [address] [place] [address] [place] Eosinophils/100 WBC (Bld) 7.7 % Normal [facility] Comment on above: Order Comment: Speci men Type: BLOOD SPECIMEN Ordering Facility: [facility] Address: [address] [place] [address] Performed By: #### 5 7021-8 #### [facility] CLIA [id number] [address] [place] [address] [place] Erythrocyte distribution width (RBC) [Ratio] 12.7 % Normal 11.5-15.0 [facility] Comment on above: Order Comment: Speci men Type: BLOOD SPECIMEN Ordering Facility: [facility] Address: [address] [place] [address] Performed By: #### 5 7021-8 #### [facility] CLIA [id number] [address] [place] [address] Hematocrit (Bld) [Volume fraction] 31.2 % Low 36.0-46.0 [facility] Comment on above: Order Comment: Speci men Type: BLOOD SPECIMEN Ordering Facility: [facility] Address: [address] [place] [address] Performed By: #### 5 7021-8 #### [facility] CLIA [id number] [address] [place] [address] [place] Hemoglobin (Bld) [Mass/Vol] 10.7 g/dL Low 11.5-15.5 [facility] Comment on above: Order Comment: Speci men Type: BLOOD SPECIMEN Ordering Facility: [facility] Address: [address] [place] [address] Performed By: #### 5 7021-8 #### [facility] CLIA [id number] [address] [place] [address] [place] IMMATURE GRAN % 0.5 % Normal [facility] Comment on above: Order Comment: Speci men Type: BLOOD SPECIMEN Ordering Facility: [facility] Address: [address] [place] [address] Performed By: #### 5 7021-8 #### [facility] CLIA [id number] [address] [place] [address] IMMATURE GRAN ABS 0.03 k/uL Normal <0.10 [facility] Comment on above: Order Comment: Speci men Type: BLOOD SPECIMEN Ordering Facility: [facility] Address: [address] [place] [address] Performed By: #### 5 7021-8 #### [facility] CLIA [id number] [address] [place] [address] Lymphocytes (Bld) [#/Vol] 1.13 10*3/uL Normal 1.00-4.00 [facility] Comment on above: Order Comment: Speci men Type: BLOOD SPECIMEN Ordering Facility: [facility] Address: [address] [place] [address] Performed By: #### 5 7021-8 #### [facility] CLIA [id number] [address] [place] [address] [place] Lymphocytes/100 WBC (Bld) 18.2 % Normal [facility] Comment on above: Order Comment: Speci men Type: BLOOD SPECIMEN Ordering Facility: [facility] Address: [address] [place] [address] Performed By: #### 5 7021-8 #### [facility] CLIA [id number] [address] [place] [address] [place] MCH (RBC) [Entitic mass] 29.9 pg Normal 26.0-34.0 [facility] Comment on above: Order Comment: Speci men Type: BLOOD SPECIMEN Ordering Facility: [facility] Address: [address] [place] [address] Performed By: #### 5 7021-8 #### [facility] CLIA [id number] [address] [place] [address] [place] MCHC (RBC) [Mass/Vol] 34.3 g/dL Normal 30.5-36.0 [facility] Comment on above: Order Comment: Speci men Type: BLOOD SPECIMEN Ordering Facility: [facility] Address: [address] [place] [address] Performed By: #### 5 7021-8 #### [facility] CLIA [id number] [address] [place] [address] [place] MCV (RBC) [Entitic vol] 87.2 fL Normal 80.0-100.0 [facility] Comment on above: Order Comment: Speci men Type: BLOOD SPECIMEN Ordering Facility: [facility] Address: [address] [place] [address] Performed By: #### 5 7021-8 #### [facility] CLIA [id number] [address] [place] [address] [place] Monocytes (Bld) [#/Vol] 0.36 10*3/uL Normal <0.87 [facility] Comment on above: Order Comment: Speci men Type: BLOOD SPECIMEN Ordering Facility: [facility] Address: [address] [place] [address] Performed By: #### 5 7021-8 #### [facility] CLIA [id number] [address] [place] [address] [place] Monocytes/100 WBC (Bld) 5.8 % Normal [facility] Comment on above: Order Comment: Speci men Type: BLOOD SPECIMEN Ordering Facility: [facility] Address: [address] [place] [address] Performed By: #### 5 7021-8 #### [facility] CLIA [id number] [address] [place] [address] [place] Neutrophils (Bld) [#/Vol] 4.18 10*3/uL Normal 1.45-7.50 [facility] Comment on above: Order Comment: Speci men Type: BLOOD SPECIMEN Ordering Facility: [facility] Address: [address] [place] [address] Performed By: #### 5 7021-8 #### [facility] CLIA [id number] [address] [place] [address] [place] Neutrophils/100 WBC (Bld) 67.3 % Normal [facility] Comment on above: Order Comment: Speci men Type: BLOOD SPECIMEN Ordering Facility: [facility] Address: [address] [place] [address] Performed By: #### 5 7021-8 #### [facility] CLIA [id number] [address] [place] [address] [place] Nucleated RBC (Bld) [#/Vol] 10*3/uL Normal <0.01 [facility] Comment on above: Order Comment: Speci men Type: BLOOD SPECIMEN Ordering Facility: [facility] Address: [address] [place] [address] Performed By: #### 5 7021-8 #### [facility] CLIA [id number] [address] [place] [address] [place] Nucleated RBC/100 WBC (Bld) [Ratio] 0.0 /100 WBC Normal [facility] Comment on above: Order Comment: Speci men Type: BLOOD SPECIMEN Ordering Facility: [facility] Address: [address] [place], [place] [address] Performed By: #### 5 7021-8 #### [facility] CLIA [id number] [address] [place] [address] [place] Platelet mean volume (Bld) [Entitic vol] 8.7 fL Low 9.0-12.7 [facility] Comment on above: Order Comment: Speci men Type: BLOOD SPECIMEN Ordering Facility: [facility] Address: [address] [place], [place] [address] Performed By: #### 5 7021-8 #### [facility] CLIA [id number] [address] [place] [address] [place] Platelets (Bld) [#/Vol] 436 10*3/uL High 150-400 [facility] Comment on above: Order Comment: Speci men Type: BLOOD SPECIMEN Ordering Facility: [facility] Address: [address] [place], [place] [address] Performed By: #### 5 7021-8 #### [facility] CLIA [id number] [address] [place] [address] [place] RBC (Bld) [#/Vol] 3.58 10*6/uL Low 3.90-5.20 [facility] Comment on above: Order Comment: Speci men Type: BLOOD SPECIMEN Ordering Facility: [facility] Address: [address] [place], [place] [address] Performed By: #### 5 7021-8 #### [facility] CLIA [id number] [address] [place] [address] [place] WBC (Bld) [#/Vol] 6.21 10*3/uL Normal 3.70-11.00 [facility] Comment on above: Order Comment: Speci men Type: BLOOD SPECIMEN Ordering Facility: [facility] Address: [address] [place], [place] [address] Performed By: #### 5 7021-8 #### [facility] CLIA [id number] [place] Magnesium SerPl-mCncon 04-04 Magnesium [Mass/Vol] 2.1 mg/dL Normal 1.7-2.3 [facility] Comment on above: Order Comment: Speci men Type: BLOOD SPECIMENOrdering Facility: [facility] Address: [address] [place] [address] Performed By: #### 2 4321-2, 61047-5, 2777-1 ####[facility] [id number] [address] [place] NURSING PROGon 04-04-2022 NURSING PROG HNO ID: [id number] Author: Dipti Crowley RN Service: Nursing Author Type: Registered Nurse Type: Nursing Progress Note Filed: 04/04/2022 7:47 PM Note Text: Nursing Progress Note Patient Name: Mary Leal Patient Location: [id number] __ Daily Note:Patient refusing further IVF. This note was completed by: Dipti Crowley [facility] NURSING PROG HNO ID: [id number] Author: Dipti Crowley RN Service: Nursing Author Type: Registered Nurse Type: Nursing Progress Note Filed: 04/04/2022 11:11 AM Note Text: Nursing Progress Note Patient Name: Mary Leal Patient [address]: [id number] __ Daily Note: Patient up in chair [...] notified, but post call. 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 Will continue to monitor. Call light in reach. This note was completed by: Dipti Crowley [facility] Phosphate SerPl-mCncon 04-04 Phosphate [Mass/Vol] 3.2 mg/dL Normal 2.7-4.8 [facility] Comment on above: Order Comment: Speci men Type: BLOOD SPECIMENOrdering Facility: [facility] Address: [address] [place] [address] Performed By: #### 2 4321-2, 95808-5, 2777-1 ####[facility] [id number] [address] [place] ALLIED HEALTHon 04-03-2022 ALLIED HEALTH HNO ID: [id number] Author: MALAIKA Martinez Service: ? Author Type: Dry Cleaner Hand Type: Allied Health Filed: 04/03/2022 5:35 PM [...] MALAIKA Martinez April 03, 2022 5:35 PM [facility] Basic metabolic 2000 panelon 04-03-2022 Anion gap [Moles/Vol] 10 mmol/L Normal 9-18 [facility] Comment on above: Order Comment: Speci men Type: BLOOD SPECIMENOrdering Facility: [facility] Address: [address] [place] [address] Performed By: #### B MP #### [place] [phone] Calcium [Mass/Vol] 8.4 mg/dL Low 8.5-10.2 [facility] Comment on above: Order Comment: Speci men Type: BLOOD SPECIMENOrdering Facility: [facility] Address: [address] [place] [address] Performed By: #### B MP #### [place] [phone] Chloride [Moles/Vol] 103 mmol/L Normal 97-105 [facility] Comment on above: Order Comment: Speci men Type: BLOOD SPECIMENOrdering Facility: [facility] Address: [address] [place] [address] Performed By: #### B MP #### [place] [phone] CO2 [Moles/Vol] 25 mmol/L Normal 22-30 [facility] Comment on above: Order Comment: Speci men Type: BLOOD SPECIMENOrdering Facility: [facility] Address: [address] [place] [address] Performed By: #### B MP #### [phone] Creatinine [Mass/Vol] 0.60 mg/dL Normal 0.58-0.96 [facility] Comment on above: Order Comment: Speci men Type: BLOOD SPECIMENOrdering Facility: [facility] Address: [address] [place] [address] Performed By: #### B MP #### [place] [phone] ESTIMATED GLOMERULAR FILTRATION RATE 110 mL/min/1.73m??? Normal >=60 [facility] Comment on above: Order Comment: Leanne terry Type: BLOOD SPECIMENOrdering Facility: [facility] Address: [address] [place] [phone] Result Comment: Mary mated Glomerular Filtration Rate [...] By: #### B MP #### [place] [id number] [place] [address] Glucose [Mass/Vol] 106 mg/dL High 74-99 [facility] Comment on above: Order Comment: Leanne [facility] Type: BLOOD SPECIMENOrdering Facility: [facility] Address: [address] [place], [place] [phone] Result Comment: The [place] [employer] (ADA) provides guidance for cutoff [...] Standards of Medical Care in Diabetes 2016, [place] [employer]. Diabetes Care. 2016.39(Suppl 1). Performed By: #### B MP #### [place] [id number] [place] [address] Potassium [Moles/Vol] 3.3 mmol/L Low 3.7-5.1 [facility] Comment on above: Order Comment: [facility] Type: BLOOD SPECIMENOrdering Facility: [facility] Address: [address] [place] [phone] Performed By: #### B MP #### [place] [phone] Sodium [Moles/Vol] 138 mmol/L Normal 136-144 [facility] Comment on above: Order Comment: Speci men Type: BLOOD SPECIMENOrdering Facility: [facility] Address: [address] [place] [address] Performed By: #### B MP #### [place] [phone] Urea nitrogen [Mass/Vol] 4 mg/dL Low 05-26 [facility] Comment on above: Order Comment: Speci men Type: BLOOD SPECIMENOrdering Facility: [facility] Address: [address] [place] [address] Performed By: #### B MP #### [place] [phone] CBC W Auto Differential pane l (Bld)on 04-03-2022 Basophils (Bld) [#/Vol] 0.03 10*3/uL Normal <0.11 [facility] Comment on above: Order Comment: Speci men Type: BLOOD SPECIMENOrdering Facility: [facility] Address: [address] [place] [address] Performed By: #### B MP #### [phone] Basophils/100 WBC (Bld) 0.4 % Normal [facility] Comment on above: Order Comment: Speci men Type: BLOOD SPECIMENOrdering Facility: [facility] Address: [address] [place] [address] Performed By: #### B MP #### [phone] Differential cell count method Nom (Bld) Auto Normal [facility] Comment on above: Order Comment: Speci men Type: BLOOD SPECIMENOrdering Facility: [facility] Address: [address] [place] [address] Performed By: #### B MP #### [phone] Eosinophils (Bld) [#/Vol] 0.48 10*3/uL High <0.46 [facility] Comment on above: Order Comment: Speci men Type: BLOOD SPECIMENOrdering Facility: [facility] Address: [address] [place] [address] Performed By: #### B MP #### [place] [phone] Eosinophils/100 WBC (Bld) 6.5 % Normal [facility] Comment on above: Order Comment: Speci men Type: BLOOD SPECIMENOrdering Facility: [facility] Address: [address] [place] [address] Performed By: #### B MP #### [address] Erythrocyte distribution width (RBC) [Ratio] 12.5 % Normal 11.5-15.0 [facility] Comment on above: Order Comment: Speci men Type: BLOOD SPECIMENOrdering Facility: [facility] Address: [address] [place] [address] Performed By: #### B MP #### [address] Hematocrit (Bld) [Volume fraction] 29.5 % Low 36.0-46.0 [facility] Comment on above: Order Comment: Speci men Type: BLOOD SPECIMENOrdering Facility: [facility] Address: [address] [place] [address] Performed By: #### B MP #### [place] [phone] Hemoglobin (Bld) [Mass/Vol] 10.2 g/dL Low 11.5-15.5 [facility] Comment on above: Order Comment: Speci men Type: BLOOD SPECIMENOrdering Facility: [facility] Address: [address] [place] [address] Performed By: #### B MP #### [place] [phone] IMMATURE GRAN % 0.5 % Normal [facility] Comment on above: Order Comment: Speci men Type: BLOOD SPECIMENOrdering Facility: [facility] Address: [address] [place] [address] Performed By: #### B MP #### [place] [address] IMMATURE GRAN ABS 0.04 k/uL Normal <0.10 [facility] Comment on above: Order Comment: Speci men Type: BLOOD SPECIMENOrdering Facility: [facility] Address: [address] [place] [address] Performed By: #### B MP #### [phone] Lymphocytes (Bld) [#/Vol] 1.11 10*3/uL Normal 1.00-4.00 [facility] Comment on above: Order Comment: Speci men Type: BLOOD SPECIMENOrdering Facility: [facility] Address: [address] [place] [address] Performed By: #### B MP #### [phone] Lymphocytes/100 WBC (Bld) 15.0 % Normal [facility] Comment on above: Order Comment: Speci men Type: BLOOD SPECIMENOrdering Facility: [facility] Address: [address] [place] [address] Performed By: #### B MP #### [phone] MCH (RBC) [Entitic mass] 30.1 pg Normal 26.0-34.0 [facility] Comment on above: Order Comment: Speci men Type: BLOOD SPECIMENOrdering Facility: [facility] Address: [address] [place] [address] Performed By: #### B MP #### [phone] MCHC (RBC) [Mass/Vol] 34.6 g/dL Normal 30.5-36.0 [facility] Comment on above: Order Comment: Speci men Type: BLOOD SPECIMENOrdering Facility: [facility] Address: [address] [place] [address] Performed By: #### B MP #### [place] [phone] MCV (RBC) [Entitic vol] 87.0 fL Normal 80.0-100.0 [facility] Comment on above: Order Comment: Speci men Type: BLOOD SPECIMENOrdering Facility: [facility] Address: [address] [place] [address] Performed By: #### B MP #### [phone] Monocytes (Bld) [#/Vol] 0.46 10*3/uL Normal <0.87 [facility] Comment on above: Order Comment: Speci men Type: BLOOD SPECIMENOrdering Facility: [facility] Address: [address] [place] [address] Performed By: #### B MP #### [phone] Monocytes/100 WBC (Bld) 6.2 % Normal [facility] Comment on above: Order Comment: Speci men Type: BLOOD SPECIMENOrdering Facility: [facility] Address: [address] [place] [address] Performed By: #### B MP #### [phone] Neutrophils (Bld) [#/Vol] 5.27 10*3/uL Normal 1.45-7.50 [facility] Comment on above: Order Comment: Speci men Type: BLOOD SPECIMENOrdering Facility: [facility] Address: [address] [place] [address] Performed By: #### B MP #### [phone] Neutrophils/100 WBC (Bld) 71.4 % Normal [facility] Comment on above: Order Comment: Speci men Type: BLOOD SPECIMENOrdering Facility: [facility] Address: [address] [place], [place] [phone] Performed By: #### B MP #### [place] [phone] Nucleated RBC (Bld) [#/Vol] 10*3/uL Normal <0.01 [facility] Comment on above: Order Comment: Speci men Type: BLOOD SPECIMENOrdering Facility: [facility] Address: [address] [place] [address] Performed By: #### B MP #### [phone] Nucleated RBC/100 WBC (Bld) [Ratio] 0.0 /100 WBC Normal [facility] Comment on above: Order Comment: Speci men Type: BLOOD SPECIMENOrdering Facility: [facility] Address: [address] [place] [address] Performed By: #### B MP #### [phone] Platelet mean volume (Bld) [Entitic vol] 8.6 fL Low 9.0-12.7 [facility] Comment on above: Order Comment: Speci men Type: BLOOD SPECIMENOrdering Facility: [facility] Address: [address] [place] [address] Performed By: #### B MP #### [phone] Platelets (Bld) [#/Vol] 342 10*3/uL Normal 150-400 [facility] Comment on above: Order Comment: Speci men Type: BLOOD SPECIMENOrdering Facility: [facility] Address: [address] [place] [address] Performed By: #### B MP #### [place] [phone] RBC (Bld) [#/Vol] 3.39 10*6/uL Low 3.90-5.20 [facility] Comment on above: Order Comment: Speci men Type: BLOOD SPECIMENOrdering Facility: [facility] Address: [address] [place] [address] Performed By: #### B MP #### [facility] [address] [place] [address] WBC (Bld) [#/Vol] 7.39 10*3/uL Normal 3.70-11.00 [facility] Comment on above: Order Comment: Speci men Type: BLOOD SPECIMENOrdering Facility: [facility] Address: [address] [place] [phone] Performed By: #### B MP #### [place] [id number] [place] [address] CONSULT PROGon 04-03-2022 CONSULT PROG HNO ID: [id number] Author: Sarwat Huddleston PA-C Service: Pain Management Author Type: Physician Olive Packer Type: Consult Progress Note Filed: 04/03/2022 8:39 [...] appears comf (more content not included)... Normal [facility] CT ABD/PEL W IVCONon 04-03- 022 CT ABD/PEL W IVCON * * [...] Lower thorax: Visualized lung bases are clear. Steel Heater (topogram) images: No additional findings. IMPRESSION: Postsurgical [...] collection is present in the lower pelvis Hat Ironer: [facility] Transcribe Date/Time: Apr 03 2022 9:00P Dictated by : SHELBY ESPINOSA MD This examination was interpreted and the report reviewed and electronically signed by: SHELBY ESPINOSA MD on Apr 03 2022 9:12PM EST [id number] Normal [facility] Magnesium SerPl-mCncon 04-03 Magnesium [Mass/Vol] 1.6 mg/dL Low 1.7-2.3 [facility] Comment on above: Order Comment: Speci men Type: BLOOD SPECIMENOrdering Facility: [facility] Address: [address] [place], [place] [phone] Performed By: #### B MP #### [place] [phone] NURSING PROGon 04-03-2022 NURSING PROG HNO ID: [id number] Author: Beto Ford RN Service: ? Author Type: Registered Nurse Type: Nursing Progress Note Filed: 04/03/2022 9:39 PM Note Text: Nursing Progress Note Patient Name: Mary Leal Patient Location: [place] [id number] __ Daily Note: 2129: Pt declined to have all oral medications. They just go right through me. I cannot take them. . Made RN aware. This note was completed by: Beto Ford [facility] NURSING PROG HNO ID: [id number] Author: Dipti Crowley RN Service: Nursing Author Type: Registered Nurse Type: Nursing Progress Note Filed: 04/03/2022 2:51 PM Note Text: Nursing Progress Note Patient Name: Mary Leal Patient [address] __ Daily Note:Patient unable to tolerate powder form of potassium due to nausea. Patient unable to tolerate IV form, it feels like It's paralyzing my arm . Attempted to dilute boluses and lower rates with no success. SR paged with events ([phone]). Awaiting further orders. This note was completed by: Dipti Crowley [facility] NURSING PROG HNO ID: [id number] Author: Dipti Crowley RN Service: Nursing Author [...] This note was completed by: Dipti Crowley [facility] NURSING PROG HNO ID: [id number] Author: Chava Remy RN Service: PICC Team [...] 03, 2022 TIME: 8:37 AM PAGER/CONTACT #: [facility] NURSING PROG HNO ID: [id number] Author: Kev Leone RN Service: ? Author Type: Registered Nurse Type: Nursing Progress Note Filed: 04/03/2022 3:50 AM Note Text: Nursing Progress Note Patient Name: Mary Leal Patient Location: / __ Daily Note: 2100: Pt refusing all PO meds at this time, states she's concerned that she's not digesting them properly. Paan currently being controlled with bilateral blocks and PRN IV pain medication. This note was completed by: Kev Leone [facility] Phosphate SerPl-mCncon 04-03 Phosphate [Mass/Vol] 3.3 mg/dL Normal 2.7-4.8 [facility] Comment on above: Order Comment: Speci men Type: BLOOD SPECIMENOrdering Facility: [facility] Address: [address] [place], [place] [phone] Performed By: #### B MP #### [place] [address] ALLIED HEALTHon 04-02-2022 ALLIED HEALTH HNO ID: [id number] Author: RT Ban(Asiya) Service: Radiology Author Type: [...] RT Ban(R) April 02, 2022 9:12 AM [facility] CONSULT PROGon 04-02-2022 CONSULT PROG HNO ID: [id number] Author: Sarwat Huddleston PA-C Service: Pain Management Author Type: Physician Olive Packer Type: Consult Progress Note Filed: 04/02/2022 9:00 [...] 29.3 5 (more content not included)... Normal [facility] NURSING PROGon 04-02-2022 NURSING PROG HNO ID: [id number] Author: Dipti Crowley RN Service: Nursing Author Type: Registered Nurse Type: Nursing Progress Note Filed: 04/02/2022 1:23 PM Note Text: Nursing Progress Note Patient Name: Mary Leal Patient Location: PK3B/ __ Daily Note: Patient AANDOx3. VSS. RA [...] note was completed by: Dipti Crowley Normal [facility] XR ABDOMEN 1V SUPINEon 04-02 XR [...] may be of help for further evaluation. Hat Ironer: [facility] Transcribe Date/Time: Apr 02 2022 9:16A Dictated by : JOAQUIN BRYANT MD This examination was interpreted and the report reviewed and electronically signed by: JOAQUIN BRYANT MD on Apr 02 2022 9:19AM EST [id number] Normal [facility] Basic metabolic 2000 panelon 04-01-2022 Anion gap [Moles/Vol] 9 mmol/L Normal 9-18 [facility] Comment on above: Order Comment: Speci men Type: BLOOD SPECIMENOrdering Facility: [facility] Address: [address] [place] [address] Performed By: #### B MP #### [address] [address] Calcium [Mass/Vol] 7.9 mg/dL Low 8.5-10.2 [facility] Comment on above: Order Comment: Speci men Type: BLOOD SPECIMENOrdering Facility: [facility] Address: [address] [place] [address] Performed By: #### B MP #### [place] [phone] Chloride [Moles/Vol] 106 mmol/L High 97-105 [facility] Comment on above: Order Comment: Speci men Type: BLOOD SPECIMENOrdering Facility: [facility] Address: [address] [place] [address] Performed By: #### B MP #### [place] [phone] CO2 [Moles/Vol] 26 mmol/L Normal 22-30 [facility] Comment on above: Order Comment: Speci men Type: BLOOD SPECIMENOrdering Facility: [facility] Address: [address] [place] [address] Performed By: #### B MP #### [place] [phone] Creatinine [Mass/Vol] 0.68 mg/dL Normal 0.58-0.96 [facility] Comment on above: Order Comment: Speci men Type: BLOOD SPECIMENOrdering Facility: [facility] Address: [address] [place] [address] Performed By: #### B MP #### [address] ESTIMATED GLOMERULAR FILTRATION RATE 107 mL/min/1.73m??? Normal >=60 [facility] Comment on above: Order Comment: Speci men Type: BLOOD SPECIMENOrdering Facility: [facility] Address: [address] [place] [address] Result Comment: Mary mated Glomerular Filtration Rate [...] GFR. Performed By: #### B MP #### [place] [phone] Glucose [Mass/Vol] 99 mg/dL Normal 74-99 [facility] Comment on above: Order Comment: Speci men Type: BLOOD SPECIMENOrdering Facility: [facility] Address: [address] [place] [address] Result Comment: The [place] [employer] (ADA) provides guidance for cutoff [...] Standards of Medical Care in Diabetes 2016, [place] [employer]. Diabetes Care. 2016.39(Suppl 1). Performed By: #### B MP #### [place] [address] Potassium [Moles/Vol] 3.7 mmol/L Normal 3.7-5.1 [facility] Comment on above: Order Comment: Speci [facility] Type: BLOOD SPECIMENOrdering Facility: [facility] Address: [address] [place] [address] Performed By: #### B MP #### [place] [phone] Sodium [Moles/Vol] 141 mmol/L Normal 136-144 [facility] Comment on above: Order Comment: Speci [facility] Type: BLOOD SPECIMENOrdering Facility: [facility] Address: [address] [place], [place] [address] Performed By: #### B MP #### [place] [phone] Urea nitrogen [Mass/Vol] 4 mg/dL Low 7-21 [facility] Comment on above: Order Comment: Speci men Type: BLOOD SPECIMENOrdering Facility: [facility] Address: [address] [place] [address] Performed By: #### B MP #### [place] [address] CBC panel Auto (Bld)on 04-01 Erythrocyte distribution width (RBC) [Ratio] 12.4 % Normal 11.5-15.0 [facility] Comment on above: Order Comment: Speci men Type: BLOOD SPECIMEN [facility] Address: [address] [place] [address] Performed By: #### 5 8410-2 #### [facility] CLIA [id number] [address] [place] [address] Hematocrit (Bld) [Volume fraction] 29.3 % Low 36.0-46.0 [facility] Comment on above: Order Comment: Speci men Type: BLOOD SPECIMEN [facility] Address: [address] [place] [address] Performed By: #### 5 8410-2 #### [facility] CLIA [id number] [address] [place] [address] [place] Hemoglobin (Bld) [Mass/Vol] 9.6 g/dL Low 11.5-15.5 [facility] Comment on above: Order Comment: Speci men Type: BLOOD SPECIMEN [facility] Address: [address] [place] [address] Performed By: #### 5 8410-2 #### [facility] CLIA [id number] [address] [place] [address] [place] MCH (RBC) [Entitic mass] 29.4 pg Normal 26.0-34.0 [facility] Comment on above: Order Comment: Speci men Type: BLOOD SPECIMEN [facility] Address: [address] [place] [address] Performed By: #### 5 8410-2 #### [facility] CLIA [id number] [address] [place] [address] [place] MCHC (RBC) [Mass/Vol] 32.8 g/dL Normal 30.5-36.0 [facility] Comment on above: Order Comment: Speci men Type: BLOOD SPECIMEN [facility] Address: [address] [place] [address] Performed By: #### 5 8410-2 #### [facility] CLIA [id number] [address] [place] [address] [place] MCV (RBC) [Entitic vol] 89.9 fL Normal 80.0-100.0 [facility] Comment on above: Order Comment: Speci men Type: BLOOD SPECIMEN [facility] Address: [address] [place] [address] Performed By: #### 5 8410-2 #### [facility] CLIA [id number] [address] [place] [address] [place] Nucleated RBC (Bld) [#/Vol] 10*3/uL Normal <0.01 [facility] Comment on above: Order Comment: Speci men Type: BLOOD SPECIMEN [facility] Address: [address] [place] [address] Performed By: #### 5 8410-2 #### [facility] CLIA [id number] [address] [place] [address] [place] Platelet mean volume (Bld) [Entitic vol] 8.9 fL Low 9.0-12.7 [facility] Comment on above: Order Comment: Speci men Type: BLOOD SPECIMEN [facility] Address: [address] [place] [address] Performed By: #### 5 8410-2 #### [facility] CLIA [id number] [address] [place] [address] [place] Platelets (Bld) [#/Vol] 282 10*3/uL Normal 150-400 [facility] Comment on above: Order Comment: Speci men Type: BLOOD SPECIMEN [facility] Address: [address] [place] [address] Performed By: #### 5 8410-2 #### [facility] CLIA [id number] [address] [place] [address] [place] RBC (Bld) [#/Vol] 3.26 10*6/uL Low 3.90-5.20 [facility] Comment on above: Order Comment: Speci men Type: BLOOD SPECIMEN [facility] Address: [address] [place] [address] Performed By: #### 5 8410-2 #### [facility] CLIA [id number] [address] [place] [address] OF [facility] WBC (Bld) [#/Vol] 7.39 10*3/uL Normal 3.70-11.00 [facility] Comment on above: Order Comment: Speci men Type: BLOOD SPECIMEN [facility] Address: [address] [place] [address] Performed By: #### 5 8410-2 #### [facility] CLIA [id number] [address] [place] [address] CONSULT PROGon 04-01-2022 CONSULT PROG HNO ID: [id number] Author: Joslyn Jain APRN.METAL FURRER Service: Pain Management Author Type: Nurse Practitioner [...] 0.67 Sod (more content not included)... Normal [facility] Magnesium SerPl-mCncon 04-01 Magnesium [Mass/Vol] 1.7 mg/dL Normal 1.7-2.3 [facility] Comment on above: Order Comment: Speci men Type: BLOOD SPECIMENOrdering Facility: [facility] Address: [address] [place] [address] Performed By: #### B MP #### [place] [address] NURSING PROGon 04-01-2022 NURSING PROG HNO ID: [id number] Author: Eagle Gu RN Service: ? Author Type: Registered Nurse Type: Nursing Progress Note Filed: 04/01/2022 9:56 PM Note Text: Nursing Progress Note Patient Name: Mary Leal Patient Location: [address]/ __ Daily Note:04/01/222038 Pt is alert and oriented x3. Surgical sites intact. Tap blocks x2 intact. Made SROC aware of Pt experiencing sharp/stabbing pain in abdomen, rating 9/10. SROC recommended use of PRN Dilaudid This note was completed by: Eagle Gu [facility] NURSING PROG HNO ID: [id number] Author: Eagle Gu RN Service: ? Author Type: Registered Nurse Type: Nursing Progress Note Filed: 04/01/2022 1:52 AM Note Text: Nursing Progress Note Patient Name: Mary Leal Patient Location: [address]/ __ Daily Note:03/31/222030 Pt is alert and oriented x3. Surgical sites intact. Nerve blocks x2 intact. This note was completed by: Eagle Gu Normal [facility] Phosphate SerPl-mCncon 04-01 Phosphate [Mass/Vol] 2.8 mg/dL Normal 2.7-4.8 [facility] Comment on above: Order Comment: Speci men Type: BLOOD SPECIMENOrdering Facility: [facility] Address: [address] [place] [address] Performed By: #### B MP #### [place] [address] Basic metabolic 2000 panelon 03-31-2022 Anion gap [Moles/Vol] 10 mmol/L Normal 9-18 [facility] Comment on above: Order Comment: Speci men Type: BLOOD SPECIMEN [facility] Address: [address] [place] [address] Performed By: #### 5 8410-2 #### [facility] CLIA [id number] [address] [place] [address] [place] Calcium [Mass/Vol] 8.4 mg/dL Low 8.5-10.2 [facility] Comment on above: Order Comment: Speci men Type: BLOOD SPECIMEN [facility] Address: [address] [place] [address] Performed By: #### 5 8410-2 #### [facility] CLIA [id number] [address] [place] [address] [place] Chloride [Moles/Vol] 107 mmol/L High 97-105 [facility] Comment on above: Order Comment: Speci men Type: BLOOD SPECIMEN [facility] Address: [address] [place] [address] Performed By: #### 5 8410-2 #### [facility] CLIA [id number] [address] [place] [address] [place] CO2 [Moles/Vol] 23 mmol/L Normal 22-30 [facility] Comment on above: Order Comment: Speci men Type: BLOOD SPECIMEN [facility] Address: [address] [place] [address] Performed By: #### 5 8410-2 #### [facility] CLIA [id number] [address] [place] [address] [place] Creatinine [Mass/Vol] 0.67 mg/dL Normal 0.58-0.96 [facility] Comment on above: Order Comment: Speci men Type: BLOOD SPECIMEN [facility] Address: [address] [place] [address] Performed By: #### 5 8410-2 #### [facility] CLIA [id number] [address] [place] [address] [place] ESTIMATED GLOMERULAR FILTRATION RATE 107 mL/min/1.73m??? Normal >=60 [facility] Comment on above: Order Comment: Speci men Type: BLOOD SPECIMEN [facility] Address: [address] [place] [address] Result Comment: Mary mated Glomerular Filtration Rate [...] GFR. Performed By: #### 5 8410-2 #### [facility] CLIA [id number] [address] [place] [address] [place] Glucose [Mass/Vol] 84 mg/dL Normal 74-99 [facility] Comment on above: Order Comment: Speci men Type: BLOOD SPECIMEN [facility] Address: [address] [place] [address] Result Comment: The [place] [employer] (ADA) provides guidance for cutoff [...] Standards of Medical Care in Diabetes 2016, [place] [employer]. Diabetes Care. 2016.39(Suppl 1). Performed By: #### 5 8410-2 #### [facility] CLIA [id number] [address] [place] [address] [place] Potassium [Moles/Vol] 3.8 mmol/L Normal 3.7-5.1 [facility] Comment on above: Order Comment: Leanne terry Type: BLOOD SPECIMEN [facility] Address: [address] [place] [address] Performed By: #### 5 8410-2 #### [facility] CLIA [id number] [address] [place] [address] [place] Sodium [Moles/Vol] 140 mmol/L Normal 136-144 [facility] Comment on above: Order Comment: Leanne terry Type: BLOOD SPECIMEN [facility] Address: [address] [place] [address] Performed By: #### 5 8410-2 #### [facility] CLIA [id number] [address] [place] [address] [place] Urea nitrogen [Mass/Vol] 11 mg/dL Normal 7-21 [facility] Comment on above: Order Comment: Leanne terry Type: BLOOD SPECIMEN [facility] Address: [address] [place] [address] Performed By: #### 5 8410-2 #### [facility] CLIA [id number] [address] [place] [address] [place] CBC W Auto Differential pane l (Bld)on 03-31-2022 Basophils (Bld) [#/Vol] 0.03 10*3/uL Normal <0.11 [facility] Comment on above: Order Comment: Speci men Type: BLOOD SPECIMEN [facility] Address: [address] [place] [address] Performed By: #### 5 7021-8 #### [facility] CLIA [id number] [address] [place] [address] [place] Basophils/100 WBC (Bld) 0.4 % Normal [facility] Comment on above: Order Comment: Speci men Type: BLOOD SPECIMEN [facility] Address: [address] [place] [address] Performed By: #### 5 7021-8 #### [facility] CLIA [id number] [address] [place] [address] [place] Differential cell count method Nom (Bld) Auto Normal [facility] Comment on above: Order Comment: Speci men Type: BLOOD SPECIMEN [facility] Address: [address] [place] [address] Performed By: #### 5 7021-8 #### [facility] CLIA [id number] [address] [place] [address] [place] Eosinophils (Bld) [#/Vol] 0.38 10*3/uL Normal <0.46 [facility] Comment on above: Order Comment: Speci men Type: BLOOD SPECIMEN [facility]: [facility] Address: [address] [place] [address] Performed By: #### 5 7021-8 #### [facility] CLIA [id number] [address] [place] [address] [place] Eosinophils/100 WBC (Bld) 4.4 % Normal [facility] Comment on above: Order Comment: Speci men Type: BLOOD SPECIMEN Ordering Facility: [facility] Address: [address] [place] [address] Performed By: #### 5 7021-8 #### [facility] CLIA [id number] [address] [place] Erythrocyte distribution width (RBC) [Ratio] 12.6 % Normal 11.5-15.0 [facility] Comment on above: Order Comment: Speci men Type: BLOOD SPECIMEN Order[facility] Facility: [facility] Address: [address] [place] [address] Performed By: #### 5 7021-8 #### [facility] CLIA [id number] [address] [place] [address] [place] Hematocrit (Bld) [Volume fraction] 30.0 % Low 36.0-46.0 [facility] Comment on above: Order Comment: Speci men Type: BLOOD SPECIMEN Ordering Facility: [facility] Address: [address] [place] [address] Performed By: #### 5 7021-8 #### [facility] CLIA [id number] [address] [place] [address] [place] Hemoglobin (Bld) [Mass/Vol] 9.9 g/dL Low 11.5-15.5 [facility] Comment on above: Order Comment: Speci men Type: BLOOD SPECIMEN Ordering Facility: [facility] Address: [address] [place] [address] Performed By: #### 5 7021-8 #### [facility] CLIA [id number] [address] [place] [address] [place] IMMATURE GRAN % 0.4 % Normal [facility] Comment on above: Order Comment: Speci men Type: BLOOD SPECIMEN Ordering Facility: [facility] Address: [address] [place] [address] Performed By: #### 5 7021-8 #### [facility] CLIA [id number] [address] [place] [address] [place] IMMATURE GRAN ABS 0.03 k/uL Normal <0.10 [facility] Comment on above: Order Comment: Speci men Type: BLOOD SPECIMEN Ordering Facility: [facility] Address: [address] [place] [address] Performed By: #### 5 7021-8 #### [facility] CLIA [id number] [address] [place] [address] [place] Lymphocytes (Bld) [#/Vol] 1.24 10*3/uL Normal 1.00-4.00 [facility] Comment on above: Order Comment: Speci men Type: BLOOD SPECIMEN Ordering Facility: [facility] Address: [address] [place] [address] Performed By: #### 5 7021-8 #### [facility] CLIA [id number] [address] [place] [address] [place] Lymphocytes/100 WBC (Bld) 14.5 % Normal [facility] Comment on above: Order Comment: Speci men Type: BLOOD SPECIMEN Ordering Facility: [facility] Address: [address] [place] [address] Performed By: #### 5 7021-8 #### [facility] CLIA [id number] [address] [place] [address] [place] MCH (RBC) [Entitic mass] 29.6 pg Normal 26.0-34.0 [facility] Comment on above: Order Comment: Speci men Type: BLOOD SPECIMEN Ordering Facility: [facility] Address: [address] [place] [address] Performed By: #### 5 7021-8 #### [facility] CLIA [id number] [address] [place] [address] [place] MCHC (RBC) [Mass/Vol] 33.0 g/dL Normal 30.5-36.0 [facility] Comment on above: Order Comment: Speci men Type: BLOOD SPECIMEN Ordering Facility: [facility] Address: [address] [place] [address] Performed By: #### 5 7021-8 #### [facility] CLIA [id number] [address] [place] [address] [place] MCV (RBC) [Entitic vol] 89.8 fL Normal 80.0-100.0 [facility] Comment on above: Order Comment: Speci men Type: BLOOD SPECIMEN Ordering Facility: [facility] Address: [address] [place] [address] Performed By: #### 5 7021-8 #### [facility] CLIA [id number] [address] [place] [address] [place] Monocytes (Bld) [#/Vol] 0.48 10*3/uL Normal <0.87 [facility] Comment on above: Order Comment: Speci men Type: BLOOD SPECIMEN Ordering Facility: [facility] Address: [address] [place] [address] Performed By: #### 5 7021-8 #### [facility] CLIA [id number] [address] [place] [address] [place] Monocytes/100 WBC (Bld) 5.6 % Normal [facility] Comment on above: Order Comment: Speci men Type: BLOOD SPECIMEN Ordering Facility: [facility] Address: [address] [place] [address] Performed By: #### 5 7021-8 #### [facility] CLIA [id number] [address] [place] [address] [place] Neutrophils (Bld) [#/Vol] 6.41 10*3/uL Normal 1.45-7.50 [facility] Comment on above: Order Comment: Speci men Type: BLOOD SPECIMEN Ordering Facility: [facility] Address: [address] [place] [address] Performed By: #### 5 7021-8 #### [facility] CLIA [id number] [address] [place] [address] [place] Neutrophils/100 WBC (Bld) 74.7 % Normal [facility] Comment on above: Order Comment: Speci men Type: BLOOD SPECIMEN Ordering Facility: [facility] Address: [address] [place] [address] Performed By: #### 5 7021-8 #### [facility] CLIA [id number] [address] [place] [address] [place] Nucleated RBC (Bld) [#/Vol] 10*3/uL Normal <0.01 [facility] Comment on above: Order Comment: Speci men Type: BLOOD SPECIMEN Ordering Facility: [facility] Address: [address] [place] [address] Performed By: #### 5 7021-8 #### [facility] CLIA [id number] [address] [place] [address] [place] Nucleated RBC/100 WBC (Bld) [Ratio] 0.0 /100 WBC Normal [facility] Comment on above: Order Comment: Speci men Type: BLOOD SPECIMEN Ordering Facility: [facility] Address: [address] [place] [address] Performed By: #### 5 7021-8 #### [facility] CLIA [id number] [address] [place] [address] [place] Platelet mean volume (Bld) [Entitic vol] 9.0 fL Normal 9.0-12.7 [facility] Comment on above: Order Comment: Speci men Type: BLOOD SPECIMEN Ordering Facility: [facility] Address: [address] [place] [address] Performed By: #### 5 7021-8 #### [facility] CLIA [id number] [address] [place] [address] [place] Platelets (Bld) [#/Vol] 246 10*3/uL Normal 150-400 [facility] Comment on above: Order Comment: Speci men Type: BLOOD SPECIMEN Ordering Facility: [facility] Address: [address] [place] [address] Performed By: #### 5 7021-8 #### [facility] CLIA [id number] [address] [place] [address] [place] RBC (Bld) [#/Vol] 3.34 10*6/uL Low 3.90-5.20 [facility] Comment on above: Order Comment: Speci men Type: BLOOD SPECIMEN Ordering Facility: [facility] Address: [address] [place] [address] Performed By: #### 5 7021-8 #### [facility] CLIA [id number] [address] [place] [address] [place] WBC (Bld) [#/Vol] 8.57 10*3/uL Normal 3.70-11.00 [facility] Comment on above: Order Comment: Speci men Type: BLOOD SPECIMEN Ordering Facility: [facility] Address: [address] [place] [address] Performed By: #### 5 7021-8 #### [facility] CLIA [id number] [address] [place] [address] [place] CONSULT PROGon 03-31-2022 CONSULT PROG HNO ID: [id number] Author: Joslyn Jain APRN.METAL FURRER Service: Pain Management Author Type: Nurse Practitioner [...] AND U (more content not included)... Normal [facility] Magnesium SerPl-mCncon 03-31 Magnesium [Mass/Vol] 1.6 mg/dL Low 1.7-2.3 [facility] Comment on above: Order Comment: Speci men Type: BLOOD SPECIMEN Ordering Facility: [facility] Address: [address] [place] [address] Performed By: #### 5 8410-2 #### [facility] [id number] [address] NURSING PROGon 03-31-2022 NURSING PROG HNO ID: [id number] Author: Daisy Amaya RN Service: Nursing Author Type: Registered Nurse Type: Nursing Progress Note Filed: 03/31/2022 4:56 PM Note Text: Nursing Progress Note Patient Name: aMry Leal Patient Location: / __ Daily Note: 0931- Pt A+Ox3. Up with standby assist. Ambulated pod multiple times. Laps intact. Old ostomy site WNL. Pt having liquid brown BMs. Voiding adq. No nausea, cp, or sob. Taps infusing per MAR. Pain controlled with PRN oxy. No further needs at this time. This note was completed by: Daisy Amaya [facility] NURSING PROG HNO ID: [id number] Author: Mariluz Carnes RN Service: Nursing Author Type: Registered Nurse Type: Nursing Progress Note Filed: 03/30/2022 11:47 PM Note Text: Nursing Progress Note Patient Name: Mary Leal Patient Location: / __ Daily Note: Pt's BP 90/52. Patient asymptomatic. Surgery made aware. Order in for [facility] LR 500CC's. This note was completed by: Mariluz Carnes [facility] SerPl-mCncon 03-31 Phosphate [Mass/Vol] 2.7 mg/dL Normal 2.7-4.8 [facility] Comment on above: Order Comment: Speci men Type: BLOOD SPECIMEN Ordering Facility: [facility] Address: [address] [place] [address] Performed By: #### 5 8410-2 #### [facility] CLIA [id number] [address] [place] [address] [place] Basic metabolic 2000 panelon 03-30-2022 Anion gap [Moles/Vol] 10 mmol/L Normal 9-18 [facility] Comment on above: Order Comment: Speci men Type: BLOOD SPECIMEN Ordering Facility: [facility] Address: [address] [place] [address] Performed By: #### 1 9123-9, 2777-1, 72585-7 #### [facility] CLIA [id number] [address] [place] [address] [place] Calcium [Mass/Vol] 8.5 mg/dL Normal 8.5-10.2 [facility] Comment on above: Order Comment: Speci men Type: BLOOD SPECIMEN Ordering Facility: [facility] Address: [address] [place] [address] Performed By: #### 1 9123-9, 2777-1, 37316-8 #### [facility] CLIA [id number] [address] [place] [address] [place] Chloride [Moles/Vol] 103 mmol/L Normal 97-105 [facility] Comment on above: Order Comment: Speci men Type: BLOOD SPECIMEN Ordering Facility: [facility] Address: [address] [place] [address] Performed By: #### 1 9123-9, 2777-1, 77231-3 #### [facility] CLIA [id number] [address] [place] [address] [place] CO2 [Moles/Vol] 24 mmol/L Normal 22-30 [facility] Comment on above: Order Comment: Speci men Type: BLOOD SPECIMEN Ordering Facility: [facility] Address: [address] [place] [address] [place] [id number] Performed By: #### 1 9123-9, 2777-1, 54464-8 #### [facility] CLIA [id number] [address] [place] [address] [place] Creatinine [Mass/Vol] 0.69 mg/dL Normal 0.58-0.96 [facility] Comment on above: Order Comment: Leanne terry Type: BLOOD SPECIMEN Ordering Facility: [facility] Address: [address] Performed By: #### 1 9123-9, 2777-1, 03088-7 #### [facility] CLIA [id number] [address] [place] [address] [place] ESTIMATED GLOMERULAR FILTRATION RATE 107 mL/min/1.73m??? Normal >=60 [facility] Comment on above: Order Comment: Leanne terry Type: BLOOD SPECIMEN Ordering Facility: [facility] Address: [address] [place] [address] Result Comment: Mary mated Glomerular Filtration Rate [...] GFR. Performed By: #### 1 9123-9, 2777-1, 60447-8 #### [facility] CLIA [id number] [address] [place] [address] [place] Glucose [Mass/Vol] 117 mg/dL High 74-99 [facility] Comment on above: Order Comment: Leanne terry Type: BLOOD SPECIMEN Ordering Facility: [facility] Address: [address] Result Comment: The [place] [employer] (ADA) provides guidance for cutoff [...] Standards of Medical Care in Diabetes 2016, [place] [employer]. Diabetes Care. 2016.39(Suppl 1). Performed By: #### 1 9123-9, 2777, 64220-7 #### [facility] CLIA [id number] [address] [place] [address] [place] Potassium [Moles/Vol] 3.9 mmol/L Normal 3.7-5.1 [facility] Comment on above: Order Comment: Leanne terry Type: BLOOD SPECIMEN Ordering Facility: [facility] Address: [address] [place] [address] Performed By: #### 1 9123-9, 27705-06, 93617-8 #### [facility] CLIA [id number] [address] [place] [address] [place] Sodium [Moles/Vol] 137 mmol/L Normal 136-144 [facility] Comment on above: Order Comment: Leanne terry Type: BLOOD SPECIMEN Ordering Facility: [facility] Address: [address] [place] [address] Performed By: #### 1 9123-9, 2777, 96668-9 #### [facility] CLIA [id number] [address] [place] [address] [place] Urea nitrogen [Mass/Vol] 13 mg/dL Normal 7-21 [facility] Comment on above: Order Comment: Leanne terry Type: BLOOD SPECIMEN Ordering Facility: [facility] Address: [address] [place] [address] Performed By: #### 1 9123-9, 2777, 18428-8 #### [facility] CLIA [id number] [address] [place] [address] [place] CBC panel Auto (Bld)on 03-30 Erythrocyte distribution width (RBC) [Ratio] 12.8 % Normal 11.5-15.0 [facility] Comment on above: Order Comment: Speci men Type: BLOOD SPECIMEN Ordering Facility: [facility] Address: [address] [place] [address] Performed By: #### 5 8410-2 #### [facility] CLIA [id number] [address] [place] [address] OF [facility] Hematocrit (Bld) [Volume fraction] 35.0 % Low 36.0-46.0 [facility] Comment on above: Order Comment: Speci men Type: BLOOD SPECIMEN Ordering Facility: [facility] Address: [address] [place] [address] Performed By: #### 5 8410-2 #### [facility] CLIA [id number] [address] [place] [address] [place] Hemoglobin (Bld) [Mass/Vol] 11.8 g/dL Normal 11.5-15.5 [facility] Comment on above: Order Comment: Speci men Type: BLOOD SPECIMEN Ordering Facility: [facility] Address: [address] [place] [address] Performed By: #### 5 8410-2 #### [facility] CLIA [id number] [address] [place] [address] [place] MCH (RBC) [Entitic mass] 30.6 pg Normal 26.0-34.0 [facility] Comment on above: Order Comment: Speci men Type: BLOOD SPECIMEN Ordering Facility: [facility] Address: [address] [place] [address] Performed By: #### 5 8410-2 #### [facility] CLIA [id number] [address] [place] [address] [place] MCHC (RBC) [Mass/Vol] 33.7 g/dL Normal 30.5-36.0 [facility] Comment on above: Order Comment: Speci men Type: BLOOD SPECIMEN Ordering Facility: [facility] Address: [address] [place] [address] Performed By: #### 5 8410-2 #### [facility] CLIA [id number] [address] [place] [address] [place] MCV (RBC) [Entitic vol] 90.7 fL Normal 80.0-100.0 [facility] Comment on above: Order Comment: Speci men Type: BLOOD SPECIMEN Ordering Facility: [facility] Address: [address] [place] [address] Performed By: #### 5 8410-2 #### [facility] CLIA [id number] [address] [place] [address] [place] Nucleated RBC (Bld) [#/Vol] 10*3/uL Normal <0.01 [facility] Comment on above: Order Comment: Speci men Type: BLOOD SPECIMEN Ordering Facility: [facility] Address: [address] [place] [address] Performed By: #### 5 8410-2 #### [facility] CLIA [id number] [address] [place] [address] [place] Platelet mean volume (Bld) [Entitic vol] 8.9 fL Low 9.0-12.7 [facility] Comment on above: Order Comment: Speci men Type: BLOOD SPECIMEN Ordering Facility: [facility] Address: [address] [place] [address] Performed By: #### 5 8410-2 #### [facility] CLIA [id number] [address] [place] [address] [place] Platelets (Bld) [#/Vol] 293 10*3/uL Normal 150-400 [facility] Comment on above: Order Comment: Speci men Type: BLOOD SPECIMEN Ordering Facility: [facility] Address: [address] [place] [address] Performed By: #### 5 8410-2 #### [facility] CLIA [id number] [address] [place] [address] [place] RBC (Bld) [#/Vol] 3.86 10*6/uL Low 3.90-5.20 [facility] Comment on above: Order Comment: Speci men Type: BLOOD SPECIMEN Ordering Facility: [facility] Address: [address] [place] [address] Performed By: #### 5 8410-2 #### [facility] CLIA [id number] [address] WBC (Bld) [#/Vol] 11.25 10*3/uL High 3.70-11.00 [facility] Comment on above: Order Comment: Speci men Type: BLOOD SPECIMEN Ordering Facility: [facility] Address: [address] [place] [id number] Performed By: #### 5 8410-2 #### [facility] CLIA [id number] [address] [place] [id number] [facility] CONSULT PROGon 03-30-2022 CONSULT PROG HNO ID: [id number] Author: Joslyn Jain APRN.METAL FURRER Service: Pain Management Author Type: Nurse Practitioner [...] N/V PLAN/Recs: 1. ContinueTAPS X 2 to 0//2 each, likely will remove blocks tomorrow 2. [...] eGFR >= (more content not included)... Normal [facility] Magnesium SerPl-mCncon 05-25 -2022 Magnesium [Mass/Vol] 1.6 mg/dL Low 1.7-2.3 [facility] Comment on above: Order Comment: Speci men Type: BLOOD SPECIMEN Ordering Facility: [facility] Address: [address] [place] [address] Performed By: #### 1 9123-9, 2777-1, 21329-2 #### [facility] CLIA [id number] [address] [facility] Phosphate [Mass/Vol] 2.9 mg/dL Normal 2.7-4.8 [facility] Comment on above: Order Comment: Speci men Type: BLOOD SPECIMEN Ordering Facility: [facility] Address: [address] [place] [address] Performed By: #### 1 9123-9, 2777-1, 02163-0 #### [facility] CLIA [id number] [place] [address] ANES POSTPROC EVALon 022 ANES POSTPROC EVAL HNO ID: [id number] Author: Nathanael Craig DO Service: Anesthesiology Author Type: Anesthesiologist Type: Anesthesia Postprocedure Evaluation Filed: 03/29/2022 8:29 AM Note Text: POST ANESTHESIA EVALUATION NOTE : 1970 Procedure Summary Date: 03/28/22 Room / Location: [place] [address] / OR Anesthesia Start: 907 Anesthesia Stop: [...] March 29, 2022 TIME: 8:29 AM CSN: [id number] Normal [facility] Basic metabolic 2000 panelon 03-29-2022 Anion gap [Moles/Vol] 9 mmol/L Normal 9-18 [facility] Comment on above: Order Comment: Speci men Type: BLOOD SPECIMEN Ordering Facility: [facility] Address: [address] [place] [address] Performed By: #### 5 8410-2 #### [facility] CLIA [id number] [address] [place] [address] [place] Calcium [Mass/Vol] 7.9 mg/dL Low 8.5-10.2 [facility] Comment on above: Order Comment: Speci men Type: BLOOD SPECIMEN Ordering Facility: [facility] Address: [address] [place] [address] Performed By: #### 5 8410-2 #### [facility] CLIA [id number] [address] [place] [address] [place] Chloride [Moles/Vol] 105 mmol/L Normal 97-105 [facility] Comment on above: Order Comment: Speci men Type: BLOOD SPECIMEN Ordering Facility: [facility] Address: [address] [place] [address] Performed By: #### 5 8410-2 #### [facility] CLIA [id number] [address] [place] [address] [place] CO2 [Moles/Vol] 24 mmol/L Normal 22-30 [facility] Comment on above: Order Comment: Speci men Type: BLOOD SPECIMEN Ordering Facility: [facility] Address: [address] [place] [address] Performed By: #### 5 8410-2 #### [facility] CLIA [id number] [place] [address] [place] Creatinine [Mass/Vol] 0.70 mg/dL Normal 0.58-0.96 [facility] Comment on above: Order Comment: Speci men Type: BLOOD SPECIMEN Ordering Facility: [facility] Address: [address] [place] [address] Performed By: #### 5 8410-2 #### [facility] CLIA [id number] [address] [place] [address] [place] ESTIMATED GLOMERULAR FILTRATION RATE 106 mL/min/1.73m??? Normal >=60 [facility] Comment on above: Order Comment: Leanne men Type: BLOOD SPECIMEN Ordering Facility: [facility] Address: [address] [place] [address] Result Comment: Mary mated Glomerular Filtration Rate [...] GFR. Performed By: #### 5 8410-2 #### [facility] CLIA [id number] [address] [place] [address] [place] Glucose [Mass/Vol] 92 mg/dL Normal 74-99 [facility] Comment on above: Order Comment: Leanne harrison Type: BLOOD SPECIMEN Ordering Facility: [facility] Address: [address] [place] [address] Result Comment: The [place] [employer] (ADA) provides guidance for cutoff [...] Standards of Medical Care in Diabetes 2016, [place] [employer]. Diabetes Care. 2016.39(Suppl 1). Performed By: #### 5 8410-2 #### [facility] CLIA [id number] [address] [place] [address] [place] Potassium [Moles/Vol] 4.1 mmol/L Normal 3.7-5.1 [facility] Comment on above: Order Comment: Leanne terry Type: BLOOD SPECIMEN Ordering Facility: [facility] Address: [address] [place] [address] Performed By: #### 5 8410-2 #### [facility] CLIA [id number] [address] [place] [address] [place] Sodium [Moles/Vol] 138 mmol/L Normal 136-144 [facility] Comment on above: Order Comment: Leanne terry Type: BLOOD SPECIMEN Ordering Facility: [facility] Address: [address] [place] [address] Performed By: #### 5 8410-2 #### [facility] CLIA [id number] [address] [place] [address] [place] Urea nitrogen [Mass/Vol] 12 mg/dL Normal 7-21 [facility] Comment on above: Order Comment: Leanne terry Type: BLOOD SPECIMEN Ordering Facility: [facility] Address: [address] [place] [address] Performed By: #### 5 8410-2 #### [facility] CLIA [id number] [address] [place] [address] [place] CBC W Auto Differential pane l (Bld)on 03-29-2022 Basophils (Bld) [#/Vol] 0.04 10*3/uL Normal <0.11 [facility] Comment on above: Order Comment: Speci men Type: BLOOD SPECIMEN Ordering Facility: [facility] Address: [address] [place] [address] Performed By: #### 5 7021-8 #### [facility] CLIA [id number] [address] [place] [address] [place] Basophils/100 WBC (Bld) 0.6 % Normal [facility] Comment on above: Order Comment: Speci men Type: BLOOD SPECIMEN Ordering Facility: [facility] Address: [address] [place] [address] Performed By: #### 5 7021-8 #### [facility] CLIA [id number] [address] [place] [address] [place] Differential cell count method Nom (Bld) Auto Normal [facility] Comment on above: Order Comment: Speci men Type: BLOOD SPECIMEN Ordering Facility: [facility] Address: [address] [place] [address] Performed By: #### 5 7021-8 #### [facility] CLIA [id number] [address] [place] [address] [place] Eosinophils (Bld) [#/Vol] 0.16 10*3/uL Normal <0.46 [facility] Comment on above: Order Comment: Speci men Type: BLOOD SPECIMEN Ordering Facility: [facility] Address: [address] [place] [address] Performed By: #### 5 7021-8 #### [facility] CLIA [id number] [address] [place] [address] [place] Eosinophils/100 WBC (Bld) 2.3 % Normal [facility] Comment on above: Order Comment: Speci men Type: BLOOD SPECIMEN Ordering Facility: [facility] Address: [address] [place] [address] Performed By: #### 5 7021-8 #### [facility] CLIA [id number] [address] [place] [address] [place] Erythrocyte distribution width (RBC) [Ratio] 12.8 % Normal 11.5-15.0 [facility] Comment on above: Order Comment: Speci men Type: BLOOD SPECIMEN Ordering Facility: [facility] Address: [address] [place] [address] Performed By: #### 5 7021-8 #### [facility] CLIA [id number] [address] [place] [address] OF [facility] Hematocrit (Bld) [Volume fraction] 32.3 % Low 36.0-46.0 [facility] Comment on above: Order Comment: Speci men Type: BLOOD SPECIMEN Ordering Facility: [facility] Address: [address] [place] [address] Performed By: #### 5 7021-8 #### [facility] CLIA [id number] [address] [place] [address] Hemoglobin (Bld) [Mass/Vol] 10.7 g/dL Low 11.5-15.5 [facility] Comment on above: Order Comment: Speci men Type: BLOOD SPECIMEN Ordering Facility: [facility] Address: [address] [place] [address] Performed By: #### 5 7021-8 #### [facility] CLIA [id number] [address] [place] [address] IMMATURE GRAN % 0.3 % Normal [facility] Comment on above: Order Comment: Speci men Type: BLOOD SPECIMEN Ordering Facility: [facility] Address: [address] [place] [address] Performed By: #### 5 7021-8 #### [facility] CLIA [id number] [address] [place] [address] IMMATURE GRAN ABS <0.03 Normal <0.10 [facility] Comment on above: Order Comment: Speci men Type: BLOOD SPECIMEN Ordering Facility: [facility] Address: [address] [place] [address] Performed By: #### 5 7021-8 #### [facility] CLIA [id number] [address] [place] [address] [place] Lymphocytes (Bld) [#/Vol] 1.39 10*3/uL Normal 1.00-4.00 [facility] Comment on above: Order Comment: Speci men Type: BLOOD SPECIMEN Ordering Facility: [facility] Address: [address] [place] [address] Performed By: #### 5 7021-8 #### [facility] CLIA [id number] [address] [place] [address] Lymphocytes/100 WBC (Bld) 19.7 % Normal [facility] Comment on above: Order Comment: Speci men Type: BLOOD SPECIMEN Ordering Facility: [facility] Address: [address] [place] [address] Performed By: #### 5 7021-8 #### [facility] CLIA [id number] [address] [place] [address] STATES OF [facility] MCH (RBC) [Entitic mass] 29.8 pg Normal 26.0-34.0 [facility] Comment on above: Order Comment: Speci men Type: BLOOD SPECIMEN Ordering Facility: [facility] Address: [address] [place] [address] Performed By: #### 5 7021-8 #### [facility] CLIA [id number] [address] [place] [address] MCHC (RBC) [Mass/Vol] 33.1 g/dL Normal 30.5-36.0 [facility] Comment on above: Order Comment: Speci men Type: BLOOD SPECIMEN Ordering Facility: [facility] Address: [address] [place] [address] Performed By: #### 5 7021-8 #### [facility] CLIA [id number] [address] [place] [address] OF [place] MCV (RBC) [Entitic vol] 90.0 fL Normal 80.0-100.0 [facility] Comment on above: Order Comment: Speci men Type: BLOOD SPECIMEN Ordering Facility: [facility] Address: [address] [place] [address] Performed By: #### 5 7021-8 #### [facility] CLIA [id number] [address] [place] [address] [place] Monocytes (Bld) [#/Vol] 0.55 10*3/uL Normal <0.87 [facility] Comment on above: Order Comment: Speci men Type: BLOOD SPECIMEN Ordering Facility: [facility] Address: [address] [place] [address] Performed By: #### 5 7021-8 #### [facility] CLIA [id number] [address] [place] [address] [place] Monocytes/100 WBC (Bld) 7.8 % Normal [facility] Comment on above: Order Comment: Speci men Type: BLOOD SPECIMEN Ordering Facility: [facility] Address: [address] [place] [address] Performed By: #### 5 7021-8 #### [facility] CLIA [id number] [address] [place] [address] [place] Neutrophils (Bld) [#/Vol] 4.88 10*3/uL Normal 1.45-7.50 [facility] Comment on above: Order Comment: Speci men Type: BLOOD SPECIMEN Ordering Facility: [facility] Address: [address] [place] [address] Performed By: #### 5 7021-8 #### [facility] CLIA [id number] [address] [place] [address] [place] Neutrophils/100 WBC (Bld) 69.3 % Normal [facility] Comment on above: Order Comment: Speci men Type: BLOOD SPECIMEN Ordering Facility: [facility] Address: [address] [place] [address] Performed By: #### 5 7021-8 #### [facility] CLIA [id number] [address] [place] [address] [place] Nucleated RBC (Bld) [#/Vol] 10*3/uL Normal <0.01 [facility] Comment on above: Order Comment: Speci men Type: BLOOD SPECIMEN Ordering Facility: [facility] Address: [address] [place] [address] Performed By: #### 5 7021-8 #### [facility] CLIA [id number] [address] [place] [address] [place] Nucleated RBC/100 WBC (Bld) [Ratio] 0.0 /100 WBC Normal [facility] Comment on above: Order Comment: Speci men Type: BLOOD SPECIMEN Ordering Facility: [facility] Address: [address] [place] [address] Performed By: #### 5 7021-8 #### [facility] CLIA [id number] [address] [place] [address] [place] Platelet mean volume (Bld) [Entitic vol] 9.0 fL Normal 9.0-12.7 [facility] Comment on above: Order Comment: Speci men Type: BLOOD SPECIMEN Ordering Facility: [facility] Address: [address] [place] [address] Performed By: #### 5 7021-8 #### [facility] CLIA [id number] [address] [place] [address] [place] Platelets (Bld) [#/Vol] 241 10*3/uL Normal 150-400 [facility] Comment on above: Order Comment: Speci men Type: BLOOD SPECIMEN Ordering Facility: [facility] Address: [address] [place] [address] Performed By: #### 5 7021-8 #### [facility] CLIA [id number] [address] [place] [address] [place] RBC (Bld) [#/Vol] 3.59 10*6/uL Low 3.90-5.20 [facility] Comment on above: Order Comment: Speci men Type: BLOOD SPECIMEN Ordering Facility: [facility] Address: [address] [place] [address] Performed By: #### 5 7021-8 #### [facility] CLIA [id number] [address] [place] [address] [place] WBC (Bld) [#/Vol] 7.04 10*3/uL Normal 3.70-11.00 [facility] Comment on above: Order Comment: Speci men Type: BLOOD SPECIMEN Ordering Facility: [facility] Address: [facility] [place] [address] Performed By: #### 5 7021-8 #### [facility] [id number] [address] [place] [address] [place] CONSULT PROGon 03-29-2022 CONSULT PROG HNO ID: [id number] Author: Joslyn Jain APRN.KWESI Service: Pain Management [...] is on liq diet, currently on Dilaudid DANCE THERAPIST at 0/0.2/10/6 last 2 hours 06/27 bolus [...] No Relieved: Yes - NOW with increase DANCE THERAPIST and Repositioning and DANCE THERAPIST Is patient satisfied with pain control: Yes [...] mL PERIPHERAL NERVE CATHETER CONTINUOUS - HYDROmorphone DANCE THERAPIST 0.5 mg/mL in NaCl 0.9% 100 mL [...] % 69.3 (more content not included)... Normal [facility] Magnesium SerPl-mCncon 03-29 Magnesium [Mass/Vol] 1.4 mg/dL Low 1.7-2.3 [facility] Comment on above: Order Comment: Speci men Type: BLOOD SPECIMEN Ordering Facility: [facility] Address: [address] [place] [id number] Performed By: #### 5 8410-2 #### [facility] CLIA [id number] OF [facility] NURSING PROGon 03-29-2022 NURSING PROG HNO ID: [id number] Author: Dipti Crowley RN Service: Nursing Author Type: Registered Nurse Type: Nursing Progress Note Filed: 03/29/2022 2:00 PM Note Text: Nursing Progress Note Patient Name: Mary Leal Patient Location: __ Daily Note: Patient VSS. RA POx. Pain level better controlled now that DANCE THERAPIST initiated. B/L Ropivacaine Tap Blocks with dressings [...] This note was completed by: Dipti Crowley [facility] NURSING PROG HNO ID: [id number] Author: Kev Leone RN Service: ? Author Type: Registered Nurse Type: Nursing Progress Note Filed: 03/29/2022 3:53 AM Note Text: Nursing Progress Note Patient Name: Mary Leal Patient Location: / __ Daily Note: 0350: Pt states she is in 10/10 pain, pt has no PO pain meds ordered, page sent to surgery resident This note was completed by: Kev Leone [facility] PT EDon 03-29-2022 PT ED HNO ID: [id number] Author: Merced Morales DTR Service: Nutrition Therapy Author Type: Dramatic Teacher Type: Patient Education Filed: 03/29/2022 11:05 [...] March 29, 2022 TIME: 11:04 AM PAGER: [facility] Phosphate SerPl-mCncon 03-29 Phosphate [Mass/Vol] 2.9 mg/dL Normal 2.7-4.8 [facility] Comment on above: Order Comment: Speci men Type: BLOOD SPECIMEN Ordering Facility: [facility] Address: [address] [place] [address] Performed By: #### 5 8410-2 #### [facility] CLIA [id number] [address] [place] [address] [place] ANES PRE-OPon 03-28-2022 ANES PRE-OP HNO ID: [id number] Author: Anibal Bertrand MD Service: Anesthesiology Author [...] (FLONASE) 50 mcg/actuation nasal spray Use 1 [place] in each nostril on (more content not included)... [facility] BRIEF OP NOTon 03-28-2022 BRIEF OP NOT HNO ID: [id number] Author: Nita Lamas MD Service: Colorectal Author Type: Fellow Type: Brief Op Note Filed: 03/28/2022 3:43 PM Note Text: BRIEF OPERATIVE NOTE - COLORECTAL SURGERY Log ID: [id number] Surgery/Procedure Date: 03/28/2022 Incision/Procedure Start Time: 9:47 AM Incision Close/Procedure End Time: 3:40 PM Surgeon(s) and Olive Packer(s): Surgeon(s) and Role: * Mary Obrien MD [...] DATE: March 28, 2022 TIME: 3:42 PM [facility] NURSING PROGon 03-28-2022 NURSING PROG HNO ID: [id number] Author: Merced Lay RN Service: ? Author Type: Registered Nurse Type: Nursing Progress Note Filed: 03/28/2022 6:56 PM Note Text: Nursing Progress Note Patient Name: Mary Leal Patient Location: -/[id number] __ Transfer Note: Patient transferred into room/unit [...] note was completed by: Merced Lay [facility] NURSING PROG HNO ID: [id number] Author: Monica Nicole RN Service: Nursing Author Type: Registered Nurse Type: Nursing Progress Note Filed: 03/28/2022 6:35 PM Note Text: Nursing Progress Note Patient Name: Mary Leal Patient Location: [facility] OR POOL/[facility] OR POOL __ Daily Note: 1750: Dr. Novak notified of patients increase in heart rate from arrival to post op. Patient HR now maintaining in the 120s. 1830: vice president of news rounding at patient bedside. Dressing and abdomen assessed- drainage to be expected on island dressing. Notified him of patients HR running high and notified that patient normally takes 50mg atenolol but held today for surgery. Patient's pain managed and other VS stable at this time. vice president of news is OK with patient going to regular nursing floor at this time. Family updated. This note was completed by: Monica Nicole [facility] NURSING PROG HNO ID: [id number] Author: Vianney Chacon RN Service: Nursing Author [...] (RECOMMENDATION): None Electronically Signed By: Vianney Chacon [facility] OPERATIVE NOon 03-28-2022 OPERATIVE NO HNO ID: [id number] Author: Mary Obrien MD Service: Colorectal Author Type: Physician Type: Operative Report Filed: 03/28/2022 5:06 PM Note Text: COLON AND RECTAL SURGERY OPERATIVE REPORT PATIENT NAME: Mary Leal ADMISSION DATE: 03/28/2022 LOG ID: [id number] SURGERY/PROCEDURE DATE: 03/28/2022 INCISION/PROCEDURE START TIME: 9:47 AM INCISION CLOSE/PROCEDURE END TIME: 3:40 PM AGE: [age] year old SEX: female SURGEON(S)/PROCEDURALI ST(S) AND DIGESTER CAPPER(S): Surgeon(s) and Role: * Mary Obrien MD [...] The abdome (more content not included)... Normal [facility] SURGICAL PATHOLOGYon CASE REPORT Normal [facility] Comment on above: Order Comment: Speci harrison Type: BLOOD SPECIMEN Ordering Facility: [facility] Address: [address] [id number] Result Comment: Surg ica Pathology Report Case: [id number] Authorizing Provider: Mary Obrien MD Collected: 03/28/2022 01:43 PM Ordering Location: [facility] Received: 03/28/2022 04:10 PM Operating Room Pathologist: Alexei Rodriguez MD Specimen: COLON RESECTION, terminal ileum with ileostomy Performed By: #### 5 7021-8 #### [facility] CLIA [id number] [address] [place] [address] CLINICAL HISTORY ILEORECTAL ANASTOMOSIS, TAKEDOWN OF ILEOSTOMY Normal [facility] Comment on above: Order Comment: Speci men Type: BLOOD SPECIMEN Ordering Facility: [facility] Address: [address] [place] [address] Performed By: #### 5 7021-8 #### [facility] CLIA [id number] [address] [place] [address] DIAGNOSIS COMMENT The histologic findings are nonspecific [...] of associated inflammation or infectious organisms. Normal [facility] Comment on above: Order Comment: Speci men Type: BLOOD SPECIMEN Ordering Facility: [facility] Address: [address] [place] [address] Performed By: #### 5 7021-8 #### [facility] CLIA [id number] [address] [place] [address] [place] FINAL DIAGNOSIS Normal [facility] Comment on above: Order Comment: Speci men Type: BLOOD SPECIMEN Ordering Facility: [facility] Address: [address] [place] [address] Result Comment: [place] n and terminal ileum with ileostomy, resection: - Colon with patchy active colitis, submucosal fibrosis, acute serositis, and fibrovascular adhesions (see comment). - Small bowel with focal transmural defect, acute serositis, fibrovascular adhesions, and changes consistent with ileostomy site. - Benign lymph nodes. JEL 03/31/2022 Performed By: #### 5 7021-8 #### [facility] CLIA [id number] [address] [place] [address] [place] FINAL PERFORMING LAB Normal [facility] Comment on above: Order Comment: Speci men Type: BLOOD SPECIMEN Ordering Facility: [facility] Address: [address] [place] [address] Result Comment: Diag nostic interpretation performed at [facility], [address] [place] [address] CLIA# [id number] Electronics Utility Worker: Rajiv Anderson M.D. Performed By: #### 5 7021-8 #### [facility] CLIA [id number] [address] [place] [address] [place] GROSS DESCRIPTION Normal [facility] Comment on above: Order Comment: Speci men Type: BLOOD SPECIMEN Ordering Facility: [facility] Address: [address], [place] [address] Result Comment: A. C OLON RESECTION. Received [...] surface adjacent to the ostomy site is jaimse-red and granular. The wall the small bowel [...] diverticula. The serosa is jaimes-pink and smooth. Spline Rolling Machine Job Setter sections are submitted from distal to proximal [...] 2022 9:53 AM Gross examination performed at [facility], [address] [place] [address] CLIA # [id number] Performed By: #### 5 7021-8 #### [facility] CLIA [id number] [place] [address] [place] Q - CBC W/DIFF AND PLTon BASOABS 59 cells/uL Normal 0-200 [facility] Disaster Recovery Manager Comment on above: Order Comment: [facility] performed at: [facility], [address], [address] [place] [address], [phone], Electronics Utility Worker: Gopal Hamilton MD [facility] Date/Time: [facility] Results Received Date/Time: [facility] Reported Date/Time: Performed By: #### 9 68T, 88157T, %8293, 89554W, 6399, 496X #### [facility] [address] [place] [address] Basophils/100 WBC (Bld) 1.0 % Normal [facility] Comment on above: Order Comment: [facility] performed at: [employer] [facility], [address] , [address] [place] [address], [phone], Electronics Utility Worker: Gopal Hamilton MD [facility] Date/Time: [facility] Results Received Date/Time: [facility] Reported Date/Time: Performed By: #### 9 68T, 55974M, %8293, 18663M, 6399, 496X #### [facility] [address] [place] [address] EOSABS 171 cells/uL Normal 15-500 [facility] Comment on above: Order Comment: [facility] performed at: [facility], [employer] [facility], [address] [place] [address], [address] [place] [address], [address] [place] [address], Electronics Utility Worker: Gopal Hamilton MD [facility] Date/Time: [facility] Results Received Date/Time: [facility] Reported Date/Time: Performed By: #### 9 68T, 64352V, %8293, 66946J, 6399, 496X #### [facility] [address] [place] [address] Eosinophils/100 WBC (Bld) 2.9 % Normal [facility] Comment on above: Order Comment: [facility] performed at: [facility], [employer] [facility], [address] [place] [address], [address] [place] [address], [address] [place] [address], Electronics Utility Worker: Gopal Hamilton MD [facility] Date/Time: [facility] Results Received Date/Time: [facility] Reported Date/Time: Performed By: #### 9 68T, 08102B, %8293, 19427V, 6399, 496X #### [facility] [address] [place] [address] Erythrocyte distribution width (RBC) [Ratio] 12.9 % Normal 11.0-15.0 [facility] Comment on above: Order Comment: [facility] performed at: [facility], [employer] [facility], [address] [place] [address], [address] [place] [address], [address] [place] [address], Electronics Utility Worker: Gopal Hamilton MD [facility] Date/Time: [facility] Results Received Date/Time: [facility] Reported Date/Time: Performed By: #### 9 68T, 65117U, %8293, 42071Q, 6399, 496X #### [facility] [address] [place] [address] Hematocrit (Bld) [Volume fraction] 38.1 % Normal 35.0-45.0 [facility] Disaster Recovery Manager Comment on above: Order Comment: [facility] performed at: [facility], [employer] [facility], [address] [facility], [address] [place] [address], [address] [place] [address], Electronics Utility Worker: Gopal Hamilton MD [facility] Date/Time: [facility] Results Received Date/Time: [facility] Reported Date/Time: Performed By: #### 9 68T, 09435A, %8293, 52004B, 6399, 496X #### [facility] [address] [place] [address] Hemoglobin (Bld) [Mass/Vol] 12.9 g/dL Normal 11.7-15.5 [facility] Disaster Recovery Manager Comment on above: Order Comment: [facility] performed at: [facility], [employer] [facility], [address] [facility], [address] [place] [address], [address] [place] [address], Electronics Utility Worker: Gopal Hamilton MD [facility] Date/Time: [facility] Results Received Date/Time: [facility] Reported Date/Time: Performed By: #### 9 68T, 92360H, %8293, 31340M, 6399, 496X #### [facility] [address] [place] [address] Lymphocytes (Bld) [#/Vol] 1.375 10*3/uL Normal 850-3900 [facility] Disaster Recovery Manager Comment on above: Order Comment: [facility] performed at: [facility], [employer] [facility], [address] , [address] [place] [address], [address] [place] [address], Electronics Utility Worker: Gopal Hamilton MD [facility] Date/Time: [facility] Results Received Date/Time: [facility] Reported Date/Time: Performed By: #### 9 68T, 92667A, %8293, 34883W, 6399, 496X #### [facility] [address] [place] [address] Lymphocytes/100 WBC (Bld) 23.3 % Normal [facility] Comment on above: Order Comment: [facility] performed at: [employer], [employer] [facility], [address] [facility], [address] [place] [address], [address] [place] [address], Electronics Utility Worker: Gopal Hamilton MD [facility] Date/Time: [facility] Results Received Date/Time: [facility] Reported Date/Time: Performed By: #### 9 68T, 50376W, %8293, 92259N, 6399, 496X #### [facility] [address] [place] [address] MCH (RBC) [Entitic mass] 30.0 pg Normal 27.0-33.0 [facility] Comment on above: Order Comment: [facility] performed at: [employer], [employer] [facility], [address] [facility], [address] [place] [address], [address] [place] [address], Electronics Utility Worker: Goapl Hamilton MD [facility] Date/Time: [facility] Results Received Date/Time: [facility] Reported Date/Time: Performed By: #### 9 68T, 94231F, %8293, 32903J, 6399, 496X #### [facility] [address] [place] [address] MCHC (RBC) [Mass/Vol] 33.9 g/dL Normal 32.0-36.0 [facility] Comment on above: Order Comment: [facility] performed at: [employer], [employer] [facility], [address] [facility], [address] [place] [address], [address] [place] [address], Electronics Utility Worker: Gopal Hamilton MD [facility] Date/Time: [facility] Results Received Date/Time: [facility] Reported Date/Time: Performed By: #### 9 68T, 25940U, %8293, 76865G, 6399, 496X #### [facility] [address] [place] [address] MCV (RBC) [Entitic vol] 88.6 fL Normal 80.0-100.0 [facility] Comment on above: Order Comment: [facility] performed at: [employer], [employer] [facility], [address] , [address] [place] [address], [address] [place] [address], Electronics Utility Worker: Gopal Hamilton MD [facility] Date/Time: [facility] Results Received Date/Time: [facility] Reported Date/Time: Performed By: #### 9 68T, 27370L, %8293, 72573V, 6399, 496X #### [facility] [address] [place] [address] MONOABS 460 cells/uL Normal 200-950 [facility] Disaster Recovery Manager Comment on above: Order Comment: [facility] performed at: [facility], [employer] [facility], [address] [facility], [address] [place] [address], [address] [place] [address], Electronics Utility Worker: Gopal Hamilton MD [facility] Date/Time: [facility] Results Received Date/Time: [facility] Reported Date/Time: Performed By: #### 9 68T, 89337U, %8293, 31531U, 6399, 496X #### [facility] [address] [place] [address] Monocytes/100 WBC (Bld) 7.8 % Normal [facility] Comment on above: Order Comment: [facility] performed at: [facility], [employer] [facility], [address] , [address] [place] [address], [address] [place] [address], Electronics Utility Worker: Gopal Hamilton MD [facility] Date/Time: [facility] Results Received Date/Time: [facility] Reported Date/Time: Performed By: #### 9 68T, 97917C, %8293, 48815U, 6399, 496X #### [facility] [address] [place] [address] Neutrophils (Bld) [#/Vol] 3.835 10*3/uL Normal 2315-2838 [facility] Comment on above: Order Comment: [facility] performed at: [facility], [employer] [facility], [address] , [address] [place] [address], [address] [place] [address], Electronics Utility Worker: Gopal Hamilton MD [facility] Date/Time: [facility] Results Received Date/Time: [facility] Reported Date/Time: Performed By: #### 9 68T, 51542F, %8293, 52644Z, 6399, 496X #### [facility] [address] [place] [address] Neutrophils/100 WBC (Bld) 65 % Normal [facility] Comment on above: Order Comment: [facility] performed at: [facility], [employer] [facility], [address] [facility], [address] [place] [address], [address] [place] [address], Electronics Utility Worker: Gopal Hamilton MD [facility] Date/Time: [facility] Results Received Date/Time: [facility] Reported Date/Time: Performed By: #### 9 68T, 75048L, %8293, 16626W, 6399, 496X #### [facility] [address] [place] [address] Platelet mean volume (Bld) [Entitic vol] 9.3 fL Normal 7.5-12.5 [facility] Disaster Recovery Manager Comment on above: Order Comment: [facility] performed at: [facility], [employer] [facility], [address] , [address] [place] [address], [address] [place] [address], Electronics Utility Worker: Gopal Hamilton MD [facility] Date/Time: [facility] Results Received Date/Time: [facility] Reported Date/Time: Performed By: #### 9 68T, 51651O, %8293, 17775H, 6399, 496X #### [facility] [address] [place] [address] Platelets (Bld) [#/Vol] 409 10*3/uL High 140-400 [facility] Comment on above: Order Comment: [facility] performed at: [employer], [employer] [facility], [address] [facility], [address] [place] [address], [address] [place] [address], Electronics Utility Worker: Gopal Hamilton MD [facility] Date/Time: [facility] Results Received Date/Time: [facility] Reported Date/Time: Performed By: #### 9 68T, 29357L, %8293, 51277C, 6399, 496X #### [facility] [address] [place] [address] RBC (Bld) [#/Vol] 4.30 10*6/uL Normal 3.80-5.10 [facility] Comment on above: Order Comment: [facility] performed at: [facility], [employer] [facility], [address] [facility], [address] [place] [address], 72 [place] [address], Electronics Utility Worker: Gopal Hamilton MD [facility] Collection Date/Time: [facility] Results Received Date/Time: [facility] Reported Date/Time: Performed By: #### 9 68T, 11749D, %8293, 59165J, 6399, 496X #### [facility] Default [address] [place] [address] WBC (Bld) [#/Vol] 5.9 10*3/uL Normal 3.8-10.8 [facility] Comment on above: Order Comment: [facility] Testing performed at: [facility], [facility], [address] [place] [address], [address] [place] [address], [address] [place] [address], Electronics Utility Worker: Gopal Hamilton MD [facility] Collection Date/Time: [facility] Results Received Date/Time: [facility] Reported Date/Time: Performed By: #### 9 68T, 17570X, %8293, 43511Q, 6399, 496X #### [facility] Default [address] [place] [address] Q - COMPREHENSIVE METABOLIC PANEL W/EGFRon 03-10-2022 Albumin [Mass/Vol] 4.3 g/dL Normal 3.6-5.1 [facility] Comment on above: Order Comment: [facility] Testing performed at: [facility], [facility], [address] [place] [address], [address] [place] [address], [address] [place] [address], Electronics Utility Worker: Gopal Hamilton MD [facility] Collection Date/Time: [facility] Results Received Date/Time: [facility] Reported Date/Time: Performed By: #### 9 68T, 84513N, %8293, 20140N, 6399, 496X #### [facility] Default [address] [place] [address] Albumin/Globulin [Mass ratio] 1.7 {ratio} Normal 1.0-2.5 [facility] Specialist Comment on above: Order Comment: [facility] Testing performed at: [facility], [facility], [address] [place] [address], [address] [place] [address], [address] [place] [address], Electronics Utility Worker: Gopal Hamilton MD [facility] Collection Date/Time: [facility] Results Received Date/Time: [facility] Reported Date/Time: Performed By: #### 9 68T, 05807F, %8293, 32977M, 6399, 496X #### [facility] Default [address] [place] [address] ALP [Catalytic activity/Vol] 134 U/L High 31-125 [facility] Disaster Recovery Manager Comment on above: Order Comment: [facility] Testing performed at: [facility], [facility], [address] [place] [address], [address] [place] [address], [address] [place] [address], Electronics Utility Worker: Gopal Hamilton MD [facility] Date/Time: [facility] Results Received Date/Time: [facility] Reported Date/Time: Performed By: #### 9 68T, 01603Q, %8293, 44340C, 6399, 496X #### [facility] [address] [place] [address] ALT [Catalytic activity/Vol] 41 U/L High 6-29 [facility] Comment on above: Order Comment: [facility] Testing performed at: [facility], [facility], [address] [facility], [address] [place] [address], [address] [place] [address], Electronics Utility Worker: Gopal Hamilton MD [facility] Collection Date/Time: [facility] Results Received Date/Time: [facility] Reported Date/Time: Performed By: #### 9 68T, 97869W, %8293, 41213Z, 6399, 496X #### [facility] [address] [place] [address] AST [Catalytic activity/Vol] 33 U/L Normal 10-35 [facility] Comment on above: Order Comment: [facility] Testing performed at: [facility], [facility], [address] [place] [address], [address] [place] [address], [address] [place] [address], Electronics Utility Worker: Gopal Hamilton MD [facility] Date/Time: [facility] Results Received Date/Time: [facility] Reported Date/Time: Performed By: #### 9 68T, 51348O, %8293, 78857F, 6399, 496X #### [facility] [address] [place] [address] BUN/CREA 17 NOT APPLICABLE Normal 6-22 [facility] Comment on above: Order Comment: [facility] Testing performed at: [facility], [facility], [address] [facility], [address] [place] [address], [address] [place] [address], Electronics Utility Worker: Gopal Hamilton MD [facility] Collection Date/Time: [facility] Results Received Date/Time: [facility] Reported Date/Time: [id number] Performed By: #### 9 68T, 13531P, %8293, 90699Z, 6399, 496X #### [facility] Default [address] [place] [address] Calcium [Mass/Vol] 9.6 mg/dL Normal 8.6-10.2 [facility] Specialist Comment on above: Order Comment: [facility] Testing performed at: [facility], [facility], [address] [facility], [address] [place] [address], [address] [place] [address], Electronics Utility Worker: Gopal Hamilton MD [facility] Date/Time: [facility] Results Received Date/Time: [facility] Reported Date/Time: Performed By: #### 9 68T, 15623V, %8293, 05336P, 6399, 496X #### [facility] [address] [place] [address] Chloride [Moles/Vol] 103 mmol/L Normal 98-110 [facility] Specialist Comment on above: Order Comment: [facility] Testing performed at: [facility], [facility], [address] [facility], [address] [place] [address], [address] [place] [address], Electronics Utility Worker: Gopal Hamilton MD [facility] Collection Date/Time: [facility] Results Received Date/Time: [facility] Reported Date/Time: Performed By: #### 9 68T, 56114E, %8293, 50649L, 6399, 496X #### [facility] Default [address] [place] [address] CO2 [Moles/Vol] 27 mmol/L Normal 20-32 [facility] Specialist Comment on above: Order Comment: [facility] Testing performed at: [facility], [facility], [address] , [address] [place] [address], [address] [place] [address], Electronics Utility Worker: Gopal Hamilton MD [facility] Collection Date/Time: [facility] Results Received Date/Time: [facility] Reported Date/Time: Performed By: #### 9 68T, 95686J, %8293, 84742L, 6399, 496X #### [facility] Default [address] [place] [address] Creatinine [Mass/Vol] 0.65 mg/dL Normal 0.50-1.10 [facility] Disaster Recovery Manager Comment on above: Order Comment: [facility] Testing performed at: [facility], [facility], [address] [facility], [address] [place] [address], [address] [place] [address], Electronics Utility Worker: Gopal Hamilton MD [facility] Collection Date/Time: [facility] Results Received Date/Time: [facility] Reported Date/Time: Performed By: #### 9 68T, 59111F, %8293, 97098Z, 6399, 496X #### [facility] [address] [place] [address] eGFRAA (Quest) 121 mL/min/1.73m2 Normal > OR = 60 [facility] Disaster Recovery Manager Comment on above: Order Comment: [facility] Testing performed at: [facility], [facility], [address] [facility], [address] [place] [address], [address] [place] [address], Electronics Utility Worker: Gopal Hamilton MD [facility] Collection Date/Time: [facility] Results Received Date/Time: [facility] Reported Date/Time: Performed By: #### 9 68T, 97055T, %8293, 43492G, 6399, 496X #### [facility] Default [address] [place] [address] eGFRNAA (Quest) 104 mL/min/1.73m2 Normal > OR = 60 No rthern [facility] Disaster Recovery Manager Comment on above: Order Comment: [facility] Testing performed at: [facility], [facility], [address] , [address] [place] [address], [address] [place] [address], Electronics Utility Worker: Gopal Hamilton MD [facility] Collection Date/Time: [facility] Results Received Date/Time: [facility] Reported Date/Time: Performed By: #### 9 68T, 17364H, %8293, 76265P, 6399, 496X #### [facility] Default [address] [place] [address] Globulin (S) [Mass/Vol] 2.5 g/dL Normal 1.9-3.7 [facility] Disaster Recovery Manager Comment on above: Order Comment: [facility] Testing performed at: [facility], [facility], [address] [facility], [address] [place] [address], [address] [place] [address], Electronics Utility Worker: Gopal Hamilton MD [facility] Collection Date/Time: [facility] Results Received Date/Time: [facility] Reported Date/Time: Performed By: #### 9 68T, 34159V, %8293, 06259G, 6399, 496X #### [facility] [address] [place] [address] Glucose [Mass/Vol] 94 mg/dL Normal 65-99 [facility] Disaster Recovery Manager Comment on above: Order Comment: [facility] Testing performed at: [facility], [facility], [address] [place] [address], [address] [place] [address], [address] [place] [address], Electronics Utility Worker: Gopal Hamilton MD [facility] Collection Date/Time: [facility] Results Received Date/Time: [facility] Reported Date/Time: Result Comment: Fasting reference interval Performed By: #### 9 68T, 70170T, %8293, 03974I, 6399, 496X #### [facility] Default [address] [place] [address] Potassium [Moles/Vol] 4.4 mmol/L Normal 3.5-5.3 [facility] Disaster Recovery Manager Comment on above: Order Comment: [facility] Testing performed at: [facility], [facility], [address] [place] [address], [address] [place] [address], [address] [place] [address], Electronics Utility Worker: Gopal Hamilton MD [facility] Collection Date/Time: [facility] Results Received Date/Time: [facility] Reported Date/Time: Performed By: #### 9 68T, 20895T, %8293, 68504C, 6399, 496X #### [facility] Default [address] [place] [address] Protein [Mass/Vol] 6.8 g/dL Normal 6.1-8.1 Jay rn [facility] Disaster Recovery Manager Comment on above: Order Comment: [facility] Testing performed at: [facility], [facility], [address] [facility], [address] [place] [address], [address] [place] [address], Electronics Utility Worker: Gopal Hamilton MD [facility] Collection Date/Time: [facility] Results Received Date/Time: [facility] Reported Date/Time: Performed By: #### 9 68T, 06833Y, %8293, 78807Z, 6399, 496X #### [facility] Default [address] [place] [address] Sodium [Moles/Vol] 138 mmol/L Normal 135-146 Jay r[facility] Disaster Recovery Manager Comment on above: Order Comment: [facility] Testing performed at: [facility], [facility], [address] [place] [address], [address] [place] [address], [address] [place] [address], Electronics Utility Worker: Gopal Hamilton MD [facility] Collection Date/Time: [facility] Results Received Date/Time: [facility] Reported Date/Time: Performed By: #### 9 68T, 50968Q, %8293, 16174A, 6399, 496X #### [facility] Default [address] [place] [address] TBIL <0.3 Normal 0.2-1.2 [facility] Disaster Recovery Manager Comment on above: Order Comment: [facility] Testing performed at: [facility], [facility], [address] [facility], [address] [place] [address], [address] [place] [address], Electronics Utility Worker: Gopal Hamilton MD [facility] Collection Date/Time: [facility] Results Received Date/Time: [facility] Reported Date/Time: Performed By: #### 9 68T, 32229F, %8293, 40068I, 6399, 496X #### [facility] Default [address] [place] [address] Urea nitrogen [Mass/Vol] 11 mg/dL Normal 7-25 [facility] Disaster Recovery Manager Comment on above: Order Comment: Quest Testing performed at: [facility], [address] [facility], [address] [place] [address], [address], Electronics Utility Worker: Gopal Hamilton MD [facility] Collection Date/Time: [facility] Results Received Date/Time: [facility] Reported Date/Time: Performed By: #### 9 68T, 28281Z, %8293, 27259U, 6399, 496X #### [facility] Default [address] [place] [address] Q - DLDL REFLEXon 03-10-2022 Cholesterol in LDL [Mass/Vol] 87 mg/dL Normal <100 [facility] Disaster Recovery Manager Comment on above: Order Comment: [facility] Testing performed at: [facility], [address] [facility], [address] [place] [address], [address], Electronics Utility Worker: Gopal Hamilton MD [facility] Collection Date/Time: [facility] Results Received Date/Time: [facility] Reported Date/Time: Result Comment: Desirable range <100 mg/dL for primary prevention; <70 mg/dL for patients with CHD or diabetic patients with > or = 2 CHD risk factors. Performed By: #### 9 68T, 74058J, %8293, 50630Y, 6399, 496X #### [facility] Default [address] [place] [address] Q - HEMOGLOBIN A1Con 022 HEMOGLOBIN A1c 5.0 % of total Hgb Normal <5.[address] [facility] Comment on above: Order Comment: [facility] Testing performed at: [facility], [facility], [address] , [address] [place] [address], [phone], Electronics Utility Worker: Gopal Hamilton MD [facility] Collection Date/Time: [facility] [...] diagnosis of diabetes in children. According to [place] [employer] (ADA) guidelines, hemoglobin A1c <7.0% represents optimal control in non- diabetic patients. Different metrics may apply to specific patient populations. Standards of Medical Care in Diabetes(ADA). Performed By: #### 9 68T, 09620L, %8293, 53651S, 6399, 496X #### [facility] Default [address] [place] [address] Q - Lipid Panelon 03-10-2022 Cholesterol [Mass/Vol] 230 mg/dL High <200 [facility] Disaster Recovery Manager Comment on above: Order Comment: [facility] Testing performed at: [facility], [facility], [address] , [address] [place], [address], Electronics Utility Worker: Gopal Hamilton MD [facility] Collection Date/Time: [facility] Results Received Date/Time: [facility] Reported Date/Time: Performed By: #### 9 68T, 27274S, %8293, 31570C, 6399, 496X #### [facility] Default [address] [place] [address] Cholesterol in HDL [Mass/Vol] 52 mg/dL Normal > OR = 50 [facility] Disaster Recovery Manager Comment on above: Order Comment: [facility] Testing performed at: [facility], [facility], [address] , [address] [place], [address], Electronics Utility Worker: Gopal Hamilton MD [facility] Date/Time: [id number] [facility] Results Received Date/Time: [facility] Reported Date/Time: Performed By: #### 9 68T, 38016F, %8293, 45564U, 6399, 496X #### [facility] Default [address] [place] [address] Cholesterol.total/Cho lesterol in HDL [Mass ratio] 4.4 {ratio} Normal <5.0 [facility] Disaster Recovery Manager Comment on above: Order Comment: [facility] Testing performed at: [facility], [facility], [address] [place] [address], [address] [place] [address], [address] [place] [address], Electronics Utility Worker: Gopal Hamilton MD [facility] Date/Time: [id number] [facility] Results Received Date/Time: [facility] Reported Date/Time: Performed By: #### 9 68T, 38949K, %8293, 45634O, 6399, 496X #### [facility] Default [address] [place] [address] LDLD SEE NOTE Normal [facility] Disaster Recovery Manager Comment on above: Order Comment: [facility] Testing performed at: [facility], [facility], [address] [facility], [address] [place] [address], [address] [place] [address], Electronics Utility Worker: Gopal Hamilton MD [facility] Collection Date/Time: [facility] [...] LDL-C. Estevan SS et al. ZANA. 2013;310(19): 4827-3283 (http://education.GoGuide/faq/UHH308) Performed By: #### 9 68T, 52569Q, %8293, 00294I, 6399, 496X #### [facility] Default [address] [place] [address] NON HDL CHOLESTEROL 178 mg/dL (calc) High <130 [facility] Specialist Comment on above: Order Comment: [facility] Testing performed at: [facility], [facility], [address] [place] [address], [address] [place] [address], [address] [place] [address], Electronics Utility Worker: Gopal Hamilton MD [facility] Collection Date/Time: [facility] Results Received Date/Time: [facility] Reported Date/Time: Result Comment: For patients with diabetes plus 1 major ASCVD risk factor, treating to a non-HDL-C goal of <100 mg/dL (LDL-C of <70 mg/dL) is considered a therapeutic option. Performed By: #### 9 68T, 91330M, %8293, 71381N, 6399, 496X #### [facility] [address] [place] [address] Triglyceride [Mass/Vol] 410 mg/dL High <150 [facility] Disaster Recovery Manager Comment on above: Order Comment: [facility] Testing performed at: [facility], [address] [place] [address], [address] [place] [address], [address] [place] [address], Electronics Utility Worker: Gopal Hamilton MD [facility] Collection Date/Time: [facility] Results Received Date/Time: [facility] Reported Date/Time: Result Comment: If a non-fasting specimen was collected, consider repeat triglyceride testing on a fasting specimen if clinically indicated. João et al. J. of Clin. Lipidol. 2015;9:129-169. Performed By: #### 9 68T, 14618T, %8293, 41962X, 6399, 496X #### [facility] Default [address] [place] [address] Q - TROPONIN Ion 03-10-2022 TROPONIN I 3 ng/L Normal < OR = 47 [facility] Disaster Recovery Manager Comment on above: Order Comment: [facility] Testing performed at: [facility], [address] [facility], [address] [facility], [place], [address], Electronics Utility Worker: Gopal Hamilton MD [facility] Date/Time: [id number] [facility] Results Received Date/Time: [facility] Reported Date/Time: Result Comment: In accord with published recommendations, serial testing of troponin I at intervals of 2 to 4 hours for up to 12 to 24 hours is suggested in order to corroborate a single troponin I result. An elevated troponin alone is not sufficient to make the diagnosis of [place]. Performed By: #### 9 68T, 62959H, %8293, 68197P, 6399, 496X #### [facility] Default [address] [place] [address] UA DIP, URINE (POC)on 2021 BILIRUBIN UA (POCT) Negative Negative [facility] CLARITY UA (POCT) Clear [facility] COLOR UA (POCT) Yellow [facility] GLUCOSE UA (POCT) Negative Negative mg/dL [facility] HEMOGLOBIN/BLOOD UA (POCT) Negative Negative [facility] KETONE UA (POCT) Negative Negative mg/dL [facility] LEUKOCYTES UA (POCT) Negative Negative [facility] NITRITE UA (POCT) Negative Negative [facility] PH UA (POCT) 5.0 4.5 - 8.0 [facility] Protein Ql (U) Trace Abnormal Negative mg/dL [facility] SPECIFIC GRAVITY UA (POCT) >=1.030 1.005 - 1.030 [facility] UROBILINOGEN UA (POCT) 0.2 E.U./dL Normal E.U./dL [facility] CNTHERAPYon 01-31-2022 CNTHERAPY OT/PT/Speech Visit (PTLHO) MARY LEAL ([id number]) 1970 F Date Time Provider Department 01/31/22 10:30 AM [facility] Date Time Provider Department Center 01/31/2022 10:30 AM [id number] Reason for Visit: Physical Therapy [503] Primary [...] (FLONASE) 50 mcg/actuation nasal spray Use 1 [place] in each nostril once daily. - carBAMazepine [...] Take 50 mg by mouth once daily. [facility] CNTHERAPYon 01-24-2022 CNTHERAPY OT/PT/Speech Visit (PTLHO) MARY LEAL ([id number]) 1970 F Date Time Provider Department 01/24/22 10:30 AM [facility] Date Time Provider Department [place] 01/24/2022 10:30 AM [id number], JILL PTLSAVANNAH [facility] Reason for Visit: Physical Therapy [503] [...] (FLONASE) 50 mcg/actuation nasal spray Use 1 [place] in each nostril once daily. - carBAMazepine [...] Take 50 mg by mouth once daily. [facility] CNTHERAPYon 01-18-2022 CNTHERAPY OT/PT/Speech Visit (PTLHO) MARY LEAL ([id number]) 1970 F Date Time Provider Department 01/18/22 12:15 PM JESSI ISAACS Date Time Provider Department [place] 01/18/2022 12:15 PM [id number], KATHRYN [facility] Reason for Visit: PT Eval [747] [...] (FLONASE) 50 mcg/actuation nasal spray Use 1 [place] in each nostril once daily. - carBAMazepine [...] mg by mouth once daily. [facility] HNO ID: [id number] Author: Sonido Owen MD Service: Colorectal Author Type: Resident Type: Discharge Summary Filed: 12/27/2021 3:55 PM Note Text: Attestation signed by Mary Obrien MD at 12/29/2021 4:11 PM [facility] STAFF PHYSICIAN NOTE OF [...] PACU and was transferred to the [facility]. Postoperatively, the patient recovered well. Her [...] 50 mg Finesse (more content not included)... [facility] CONSULTon 12-27-2021 CONSULT HNO ID: [id number] Author: Dai Hines RN Service: Wound/Ostomy Author Type: Registered Nurse Type: Consults Filed: 12/27/2021 3:32 PM Note Text: STOMA CARE POST-OPERATIVE ASSESSMENT AND PATIENT EDUCATION Patient Name: Mary Leal Date: December 27, 2021 Time: 3:20 PM ET Care Outcome: Ms. Leal was seen today on the [facility] for ostomy education and a pouch change lesson. ET's Next Scheduled Visit: Complete. STOMA ASSESSMENT Stoma type: Loop ileostomy Diameter: 35 mm with and extra 1 mm cut on the medial side of the pouch. Location: RLQ Protrusion: Budded, Os points downward Mucosal condition and color: Red and [place] and moist. Boni: No Mucocutaneous Junction: Intact [...] one piece cut to fit drainable pouch (#[id number]) and Coloplast Brava moldable ring (2mm) #[id number]. Brava barrier strips, product # [id number] applied around the border of the pouch. [...] THE CHART OR MODIFY PRINTED COPY. Normal [facility] NURSING PROGon 12-27-2021 NURSING PROG HNO ID: [id number] Author: Marizol Hankins RN Service: ? Author Type: Registered Nurse Type: Nursing Progress Note Filed: 12/27/2021 4:39 PM Note Text: Nursing Progress Note Patient Name: Mary Leal [address] Location: [address] __ Daily Note: Pt AANDO x 3. Lap site STATE APPELLATE CLERK with glue, no drainage. Pt on GI [...] This note was completed by: Marizol Hankins [facility] NUTRITIONon 12-27-2021 NUTRITION HNO ID: [id number] Author: Merced Morales DTR Service: Nutrition Therapy Author Type: Dramatic Teacher Type: Nutrition Filed: 12/27/2021 12:16 PM Note Text: NUTRITION THERAPY [facility] NOTE SERVICE DATE: 12/27/2021 SERVICE TIME: 10:00 [...] DATE: December 27, 2021 TIME: 12:15 PM [facility] PT EDon 12-27-2021 PT ED HNO ID: [id number] Author: Merced Morales DTR Service: Nutrition Therapy Author Type: Dramatic Teacher Type: Patient Education Filed: 12/27/2021 12:16 [...] 27, 2021 TIME: 12:16 PM PAGER: Normal [facility] Basic Metabolic Panlon 12-26 Anion gap [Moles/Vol] 9 mmol/L Normal -18 [facility] Comment on above: Performed By: #### B MP #### [place] [id number] [place] [address] Calcium [Mass/Vol] 8.5 mg/dL Normal 8.5-10.5 [facility] Comment on above: Performed By: #### B MP #### [place] [address] Chloride [Moles/Vol] 102 mmol/L Normal 98-110 [facility] Comment on above: Performed By: #### B MP #### [place] [phone] CO2 [Moles/Vol] 28 mmol/L Normal 23-32 [facility] Comment on above: Performed By: #### B MP #### [place] [phone] Creatinine [Mass/Vol] 0.62 mg/dL Low 0.70-1.40 [facility] Comment on above: Performed By: #### B MP #### [place] [phone] eGFR- Amer. >60 Normal >59 [facility] Comment on above: Performed By: #### B MP #### [place] [phone] eGFR-All Other Races >60 Normal >59 [facility] Comment on above: Result Comment: [...] [email or web address]. Performed By: #### B MP #### [place] [phone] Glucose [Mass/Vol] 71 mg/dL Normal 65-100 [facility] Comment on above: Performed By: #### B MP #### [place] [address] Potassium [Moles/Vol] 4.0 mmol/L Normal 3.5-5.0 [facility] Comment on above: Performed By: #### B MP #### [place] [address] Sodium [Moles/Vol] 139 mmol/L Normal 132-148 [facility] Comment on above: Performed By: #### B MP #### [place] [address] Urea nitrogen [Mass/Vol] 10 mg/dL Normal 8-25 [facility] Comment on above: Performed By: #### B MP #### [place] [address] NURSING PROGon 12-26-2021 NURSING PROG HNO ID: [id number] Author: Dipti Crowley RN Service: Nursing Author Type: Registered Nurse Type: Nursing Progress Note Filed: 12/26/2021 5:25 PM Note Text: Nursing Progress Note Patient Name: Mary Leal Patient Location: [place] [address] __ Daily Note: Call discontinued as directed in orders. 700cc output from call. 250cc NS instilled and then call catheter removed. Patient assisted to BSC and voided 200cc pink tinged urine. Patient assisted back to bed, not wanting to go to chair. Call light in reach. This note was completed by: Dipti Crowley [facility] NURSING PROG HNO ID: [id number] Author: Dipti Crowley RN Service: Nursing Author Type: Registered Nurse Type: Nursing Progress Note Filed: 12/26/2021 3:51 PM Note Text: Nursing Progress Note Patient Name: Mary Leal Patient Location: -PK3C33/FV-YI6G-63 __ Daily Note: Patient AANDOx3. VSS. 2L NC POx. IVF infusing as ordered. Dilaudid DANCE THERAPIST, OXY IR on for pain. Patient drowsy yet easily arousable. Lap sites and transverse incision STATE APPELLATE CLERK with glue. Ileostomy draining liquid brown. Call draining clear yellow. PAS on. No edema. Fa,saman at bed side. Call light in reach. This note was completed by: Dipti Langford [facility] Basic Metabolic Panlon 12-25 Anion gap [Moles/Vol] 9 mmol/L Normal 9-18 [facility] Comment on above: Performed By: #### B MP #### [place] [phone] Calcium [Mass/Vol] 8.5 mg/dL Normal 8.5-10.5 [facility] Comment on above: Performed By: #### B MP #### [place] [phone] Chloride [Moles/Vol] 104 mmol/L Normal 98-110 [facility] Comment on above: Performed By: #### B MP #### [place] [phone] CO2 [Moles/Vol] 28 mmol/L Normal 23-32 [facility] Comment on above: Performed By: #### B MP #### [place] [phone] Creatinine [Mass/Vol] 0.72 mg/dL Normal 0.70-1.40 [facility] Comment on above: Performed By: #### B MP #### [place] [phone] eGFR- Amer. >60 Normal >59 [facility] Comment on above: Performed By: #### B MP #### [place] [phone] eGFR-All Other Races >60 Normal >59 [facility] Comment on above: Result Comment: [...] [email or web address]. Performed By: #### B MP #### [place] [phone] Glucose [Mass/Vol] 91 mg/dL Normal 65-100 [facility] Comment on above: Performed By: #### B MP #### [place] [phone] Potassium [Moles/Vol] 4.0 mmol/L Normal 3.5-5.0 [facility] Comment on above: Performed By: #### B MP #### [place] [phone] Sodium [Moles/Vol] 141 mmol/L Normal 132-148 [facility] Comment on above: Performed By: #### B MP #### [place] [phone] Urea nitrogen [Mass/Vol] 12 mg/dL Normal 8-25 [facility] Comment on above: Performed By: #### B MP #### [facility] [address] [place] [address] CASE MGT INIT Mikey 2021 CASE MGT INIT FIDEL HNO ID: [id number] Author: ITTO Whitt Service: ? 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 Last discharge within 30 days: No Advance Directive: Current Advance Directive: Health Care Power of Dough Molder In Chart: No Health LiteracyHow often do [...] Completely I feel financially burdened by my ooz-wr-ivhhpw expenses for my prescription medication:: 0 - Disagree Completely Risk Score: 0 Patient is categorized as: Low risk < 2 Are you interested in bedside delivery of your medications? Yes Is Patient Psychosocially Complex?: No ASSESSMENT AND PLAN: Medical Needs: Medical Needs: None Psychosocial Needs: Psychosocial Needs: None FREEDOM OF CHOICE EXPLAINED: [place] of Choice Given: Yes Level of Care Discussed: Home Care Financial Disclosure Provided: Yes Financial Disclosure Comments: careport Provider List: Home Care Provider list within the patient's requested geographic area shared with the patient/family: Yes within: 15 miles of zip code: [address] Quality and resource use metrics shared with [...] bedside with pt during assessment. Charo Obando [phone]. Home care referrals sent. Daughter to transport at time of discharge. SIGNATURE: TITO Whitt PATIENT NAME: Mary Leal DATE: December 25, 2021 TIME: 11:39 AM PAGER/CONTACT #: [phone] Normal [facility] CBC and Differentialon 12-25 Abs Baso 0.03 k/uL Normal <0.11 [facility] Comment on above: Performed By: #### 5 7021-8 #### [facility] CLIA [id number] [address] [place] [address] [place] Abs [place] 0.45 k/uL Normal <0.87 [facility] Comment on above: Performed By: #### 5 7021-8 #### [facility] CLIA [id number] [address] [place] [address] [place] Abs Neut 3.85 k/uL Normal 1.45-7.50 [facility] Comment on above: Performed By: #### 5 7021-8 #### [facility] CLIA [id number] [address] [place] [address] Absolute nRBC <0.01 Normal <0.01 [facility] Comment on above: Performed By: #### 5 7021-8 #### [facility] CLIA [id number] [address] [place] [address] STATES [facility] Basophils/100 WBC (Bld) 0.5 % Normal [facility] Comment on above: Performed By: #### 5 7021-8 #### [facility] CLIA [id number] [address] [place] [address] DTYPE Auto Diff Normal [facility] Comment on above: Performed By: #### 5 7021-8 #### [facility] CLIA [id number] [address] [place] [address] Eosinophils (Bld) [#/Vol] 0.14 10*3/uL Normal <0.46 [facility] Comment on above: Performed By: #### 5 7021-8 #### [facility] CLIA [id number] [address] [place] [address] Eosinophils/100 WBC (Bld) 2.3 % Normal [facility] Comment on above: Performed By: #### 5 7021-8 #### [facility] CLIA [id number] [address] [place] [address] Erythrocyte distribution width (RBC) [Ratio] 11.6 % Normal 11.5-15.0 [facility] Comment on above: Performed By: #### 5 7021-8 #### [facility] CLIA [id number] [address] [place] [address] Hematocrit (Bld) [Volume fraction] 35.2 % Low 36.0-46.0 [facility] Comment on above: Performed By: #### 5 7021-8 #### [facility] CLIA [id number] [address] [place] [address] [place] Hemoglobin (Bld) [Mass/Vol] 11.6 g/dL Normal 11.5-15.5 [facility] Comment on above: Performed By: #### 5 7021-8 #### [facility] CLIA [id number] [place] [address] [place] Lymphocytes (Bld) [#/Vol] 1.47 10*3/uL Normal 1.00-4.00 [facility] Comment on above: Performed By: #### 5 7021-8 #### [facility] CLIA [id number] [address] [place] [address] [place] Lymphocytes/100 WBC (Bld) 24.7 % Normal [facility] Comment on above: Performed By: #### 5 7021-8 #### [facility] CLIA [id number] [address] [place] [address] [place] MCH 29.5 pG Normal 26.0-34.0 [facility] Comment on above: Performed By: #### 5 7021-8 #### [facility] CLIA [id number] [address] [place] [address] [place] MCHC (RBC) [Mass/Vol] 33.0 g/dL Normal 30.5-36.0 [facility] Comment on above: Performed By: #### 5 7021-8 #### [facility] CLIA [id number] [address] [place] [address] [place] MCV (RBC) [Entitic vol] 89.6 fL Normal 80.0-100.0 [facility] Comment on above: Performed By: #### 5 7021-8 #### [facility] CLIA [id number] [address] [place] [address] [place] Monocytes/100 WBC (Bld) 7.6 % Normal [facility] Comment on above: Performed By: #### 5 7021-8 #### [facility] CLIA [id number] [address] [place] [address] [place] Neutrophils/100 WBC (Bld) 64.9 % Normal [facility] Comment on above: Performed By: #### 5 7021-8 #### [facility] CLIA [id number] [address] [place] [address] [place] NRBCs 0.0 /100 WBC Normal 0 [facility] Comment on above: Performed By: #### 5 7021-8 #### [facility] CLIA [id number] [address] [place] [address] [place] Platelet mean volume (Bld) [Entitic vol] 9.0 fL Normal 9.0-12.7 [facility] Comment on above: Performed By: #### 5 7021-8 #### [facility] CLIA [id number] [address] [place] [address] [place] Platelets (Bld) [#/Vol] 271 10*3/uL Normal 150-400 [facility] Comment on above: Performed By: #### 5 7021-8 #### [facility] CLIA [id number] [address] [place] [address] [place] RBC (Bld) [#/Vol] 3.93 10*6/uL Normal 3.90-5.20 [facility] Comment on above: Performed By: #### 5 7021-8 #### [facility] CLIA [id number] [address] [place] [address] [place] WBC (Bld) [#/Vol] 5.96 10*3/uL Normal 3.70-11.00 [facility] Comment on above: Performed By: #### 5 7021-8 #### [facility] CLIA [id number] [address] [place] [address] [place] CONSULTon 12-25-2021 CONSULT HNO ID: [id number] Author: Tri Kowalski APRN.METAL FURRER Service: Wound/Ostomy Author Type: Nurse Practitioner Type: Consults Filed: 12/25/2021 11:37 AM Note Text: OSTOMY SERVICE CONSULT [employer]ATE [employer] SERVICE DATE: 12/25/2021 SERVICE TIME: 1015 Consultation requested by Jenifer Ayala MD for loop ileostomy. Any final recommendations will be communicated back to the requesting provider by way of shared medical record. Surgery: Laparoscopic Suture Rectopexy, Diverting Loop Ileostomy? Date of Surgery: 12/24/2021 Surgeon: Mayr Obrien MD Subjective Mary Leal is a [...] HX 07/2021 revision - VAGINAL HYSTERECTOMY 2014 [facility] 10/2015 for endometriosis, has remaining both [...] mL 20 mEq INTRAVENOUS PRN - HYDROmorphone DANCE THERAPIST 0.5 mg/mL in NaCl 0.9% 100 mL [...] discharge with h (more content not included)... [facility] NURSING PROGon 12-25-2021 NURSING PROG HNO ID: [id number] Author: Marilyn Henning RN Service: ? Author Type: Registered Nurse Type: Nursing Progress Note Filed: 12/25/2021 7:01 PM Note Text: Nursing Progress Note Patient Name: Mary Leal Patient Location: [place] [address]/[address] __ Daily Note: 0930 Pt AANDOx3. Lap sites intact. ABD tender. DANCE THERAPIST pump running. Stoma beefy red, dark brown liquid output. Pt stated that the eye pressure felt overnite has resolved. Call remains in place until OBGYN sees pt 12/26. Pt requesting PO pain medication. 1100 Pt up to chair. [address] Ontiveros bedside. 5mg oxy ordered q4 PRN. This note was completed by: Marilyn Henning [facility] NURSING PROG HNO ID: [id number] Author: Beto Ford RN Service: ? Author Type: Registered Nurse Type: Nursing Progress Note Filed: 12/25/2021 6:12 AM Note Text: Nursing Progress Note Patient Name: Mary Leal Patient [facility] [place] [address] __ Daily Note: Pt has been complaining [...] This note was completed by: Beto Ford [facility] ANES POSTPROC EVALon 022 ANES POSTPROC EVAL HNO ID: [id number] Author: Charisse Aggarwal MD Service: Anesthesiology Author Type: Anesthesiologist Type: Anesthesia Postprocedure Evaluation Filed: 12/24/2021 4:17 PM Note Text: POST ANESTHESIA EVALUATION NOTE : 1970 Procedure Summary Date: 12/24/21 Room / Location: [place] [address] / OR Anesthesia Start: 810 Anesthesia Stop: [...] December 24, 2021 TIME: 4:17 PM CSN: [id number] [facility] ANES PRE-OPon 12-24-2021 ANES PRE-OP HNO ID: [id number] Author: Chayito Ojeda MD Service: Anesthesiology Author [...] Time BP 122/76 12/24/21 0628 Pulse 86 12/24/21627 Resp 16 12/24/21627 [...] December 24, 2021 TIME: 7:27 AM CSN: [id number] [facility] BRIEF OP NOTon 12-24-2021 BRIEF OP NOT HNO ID: [id number] Author: Jenifer Ayala MD Service: Colorectal Author Type: Fellow Type: Brief Op Note Filed: 12/24/2021 12:16 PM Note Text: BRIEF OPERATIVE NOTE - COLORECTAL SURGERY Log ID: [id number] Surgery/Procedure Date: 12/24/2021 Incision/Procedure Start Time: 8:50 AM Incision Close/Procedure End Time: Surgeon(s) and Olive Packer(s): Surgeon(s) and Role: Panel 1: * Mary [...] December 24, 2021 TIME: 12:10 PM Normal [facility] NURSING PROGon 12-24-2021 NURSING PROG HNO ID: [id number] Author: Marilyn Henning RN Service: ? Author Type: Registered Nurse Type: Nursing Progress Note Filed: 12/24/2021 6:36 PM Note Text: Nursing Progress Note Patient Name: Mary Leal Patient Location: [address] __ Daily Note: 1816 Pt arrived on floor with 100.2F temperature. Scheduled tylenol administered. Temperature 98.6 at 1816. Surgical incisions STATE APPELLATE CLERK with glue, intact. Ostomy beefy red, producing sweat. Call remains in place. Pt Educated on DANCE THERAPIST pump usage. Daughter bedside. Bed low and locked. This note was completed by: Marilyn Henning [facility] NURSING PROG O ID: [id number] Author: Marilyn Henning RN Service: ? Author Type: Registered Nurse Type: Nursing Progress Note Filed: 12/24/2021 4:19 PM Note Text: Nursing Progress Note Patient Name: Mary Leal Patient Location: [address]73 __ Transfer Note: Patient transferred into room/unit PK3- in stable condition. Actions taken: No futher actions taken at this time. Will continue to monitor and check with patient. This note was completed by: Marilyn [facility] [id number] Author: Dianelys Lopez RN Service: Nursing Author [...] (RECOMMENDATION): None Electronically Signed By: Dianelys Lopez [facility] OPERATIVE NOon 12-24-2021 OPERATIVE NO HNO ID: [id number] Author: Mary Obrien MD Service: Colorectal Author Type: Physician Type: Operative Report Filed: 12/24/2021 12:34 PM Note Text: COLON AND RECTAL SURGERY OPERATIVE REPORT PATIENT NAME: Mary Leal ADMISSION DATE: 12/24/2021 LOG ID: [id number] SURGERY/PROCEDURE DATE: 12/24/2021 INCISION/PROCEDURE START TIME: 8:50 AM INCISION CLOSE/PROCEDURE END TIME: AGE: [age] year old SEX: female SURGEON(S)/PROCEDURALI ST(S) AND DIGESTER CAPPER(S): Surgeon(s) and Role: Panel 1: * Mary [...] port site. This was ligated with a ifczhv-xi-juxga Vicryl suture and was confirmed to be [...] above. Mary Obrien, (more content not included)... [facility] OPERATIVE NO HNO ID: [id number] Author: Pam Wang MD Service: Urogynecology Author Type: Physician Type: Operative Report Filed: 12/28/2021 10:03 AM Note Text: OPERATIVE/PROCEDURE REPORT LOG ID: [id number] SURGERY/PROCEDURE DATE: 12/24/2021 INCISION/PROCEDURE START TIME: 8:50 AM INCISION CLOSE/PROCEDURE END TIME: 1:50 PM SURGEON(S)/PROCEDURALI ST(S) AND DIGESTER CAPPER(S): Surgeon(s) and Role: Panel 1: * Mary [...] short weighted speculum were then removed. A khouyr retractor was placed into the vagina to [...] aspect of the (more content not included)... [facility] Type and SCR (30D)on 022 ABO/RH(D) Positive [facility] Comment on above: Performed By: #### T SCR30 ####[place] [phone] Confirm Blood Typeon 021 ABO/RH(D) Positive [facility] Comment on above: Performed By: #### C ONABO ####[place] [phone] Type and SCR (30D)on 021 ABO/RH(D) Positive [facility] Comment on above: Performed By: #### T SCR30 ####[place] [phone] Nonvisit Note - PTon 021 Nonvisit Note - PT Chart reviewed with eval prepped for scheduled eval. KK [facility] Consenton 01-08-2021 Consent [id number]#1. 00CD:127 Normal [facility] Coding Summary.on 01-06-2021 Coding Summary. CODING DATE: 01/06/2021 FINAL [facility] DSC STATUS: Home (Routine DC) PAYOR: [...] Eileen Scott Date Saved: 01/06/2021 09:01 am [facility] Consent for Procedure/Surger yon 01-04-2021 Consent for Procedure/Surgery [id number]#1. 00CD:127 [facility] Consent for Procedure/Surgery [id number]#1. 00CD:127 [facility] Consent for Treatmenton Consent for Treatment [id number]#1.0 0CD:127 [facility] Discharge Instructionson Discharge Instructions [id number]#1. 00CD:127 [facility] Inpatient Patient Summaryon 01-04-2021 Inpatient Patient Summary [place] [id number] Clinical Summary Person Information Name: MARY LEAL Age: 50 Years : 1970 Sex: Female PCP: Isatu GÓMEZ DO Marital Status: Race: White Ethnicity: Non- or Language: Algerian Visit Id: Visit Reason: MIXED INCONTINENCE Speciality: Acuity: Enc Type: Outpatient Med Service: Surgery Arrival: 01/04/2021 12:31:00 Discharge: Dispo Type: Address: [facility] [id number] Provider Notes: Diagnosis: Problems Active Decreased bladder [...] This Visit Final Med List: acetaminophen-hydrocod one ([place] 5/325 Tab) By Mouth every 6 hours. [...] MD Follow up: With: Address: When: Clifford [place], [address], [address] [address] Business (1) Within 2 weeks Comments: Call for followup appointment. Have a great day! Patient Education Information: EU - Cystoscopy with Botox Injection Discharge Instructions (Custom) [facility] IntraOperative Documentson 0 01-04-2021 IntraOperative Documents [id number]#1. 00CD:127 Normal [facility] IntraOperative Documents [id number]#1. 00CD:127 Normal [facility] Main OR Intraoperative Recor don 01-04-2021 Main OR Intraoperative Record IntraOp Document Type FTURO Summary Primary Physician: Clifford OCONNOR MD Finalized Date/Time: 01/04/21 13:27:05 Pt. Name: DARRIAN LEALJONATHAN Zuleta/Sex: 1970 Female Med Rec #: [id number] Physician: Clifford OCONNOR MD Financial #: [id number] Pt. Type: O Room/Bed: / Admit/Disch: 01/04/21 12:31:00 - Institution: Case Times FTURO Entry 1 Patient Times In Room 01/04/21 13:07:00 Out Room 01/04/21 13:27:00 Procedure Times Start 01/04/21 13:19:00 Stop 01/04/21 13:23:00 Anesthesia Times Last Modified By: Niecy Tran RN 01/04/21 13:27:01 Case Attendance FTURO Entry 1 Entry 2 Entry 3 Case Attendee Clifford OCONNOR MD CARDROOM DRAWING RUNNER, Akin Mejias CARDROOM DRAWING RUNNER, Debi Chand Role Performed Surgeon - Primary [...] Case Attendee Niecy Tran RN Role Performed Loom Operator Apprentice - Primary Time In 01/04/21 13:07:00 Time Out 01/04/21 13:27:00 Procedure CYSTOSCOPY LOCAL BOTOX INJECTION(.) Comments Last Modified By: Niecy Tran RN 01/04/21 13:27:02 Surgical Procedures FTURO Entry 1 Procedure Description Procedure CYSTOSCOPY LOCAL BOTOX Modifiers . INJECTION Surgeon Description CYSTOSCOPY BOTOX 50 UNITS LOT NUMBER [id number] EXP DATE 08/2023 Primary Procedure Yes Primary [...] By: Niecy Tran RN 01/04/21 13:27 Normal [facility] Main OR Preoperative Recordo n 01-04-2021 Main OR Preoperative Record Holding Area Document Type FTURO Summary Primary Physician: Clifford OCONNOR MD Finalized Date/Time: 01/04/21 13:05:55 Pt. Name: ELIVSMARY /Sex: 1970 Female Med Rec #: [id number] Physician: Clifford OCONNOR MD Financial #: [id number] Pt. Type: O Room/Bed: / Admit/Disch: 01/04/21 [...] 12:46 Niecy Tran RN 01/04/21 13:05 Normal [facility] Operative Reporton Operative Report Patient: MARY [...] arranged, F/U in two weeks. . Normal [facility] Comment on above: Result Comment: Elec tronically Signed By: Clifford OCONNOR MD\.br\Date and Time Signed: 01/04/21 13:30 EST Outpatient Surgery Discharge Instructionon 01-04-2021 Outpatient Surgery Discharge Instruction [place] [id number] Patient Discharge Instructions PERSON INFORMATION Name: MARY [...] Follow up: With: Address: When: Clifford OCONNOR [address] [place] [address], [address], [place] [id number] Business (1) Within 2 weeks Comments: Call [...] you have a fever over 100 degrees. IELVIS KRISTEN D, have received the attached patient [...] you. Thank you for choosing [facility] Normal [facility] PT - Assessmentson 1 PT - Assessments [id number]#1. 00CD:127 Normal [facility] Ambulatory Clinical Summaryo n 11-11-2020 Ambulatory Clinical Summary {[id number]-[id number] [id number]}CD:[id number] Normal [facility] Patient Educationon 11-11-19 21 Patient Education [...] your urinary (more content not included)... Normal [facility] Urology Phone Visit- Telehea [facility] 11-03-2020 Urology Phone Visit- Telehealth HPI Staff [...] only communication with the patient located at [address] [place] [address] , with no one else. If it [...] Dawna Marmolejo MD [address] [place] [address]- [phone] Additional Instructions: Patient Education Urodynamic Testing Overactive [...] stream His (more content not included)... Normal [facility] Comment on above: Result Comment: Elec tronically Signed By: Dawna Marmolejo MD\.br\Date and Time Signed: 11/03/20 11:59 EST\.br\Electronically Co-Signed By: Christy Gill MA\.br\Date and Time Co-Signed: 10/21/20 12:01 EST Coding Summary.on 10-28-2020 Coding Summary. CODING DATE: 10/28/2020 FINAL [facility] STATUS: Home (Routine DC) PAYOR: Medicaid [...] Eileen Scott Date Saved: 10/28/2020 11:17 am [facility] Ambulatory Clinical Summaryo n 10-27-2020 Ambulatory Clinical Summary {[id number]-c 6-e5}CD:[id number] [facility] Consent for Procedure/Surger yon 10-27-2020 Consent for Procedure/Surgery [id number] .00CD:127 [facility] Consent for Treatmenton 10-07 Consent for Treatment [id number]#1.0 0CD:127 [facility] IntraOperative Documentson 12-28-2019 IntraOperative Documents [id number] .00CD:127 [facility] Patient Educationon 10-21-20 20 Patient Education Family [...] lab or depar (more content not included)... [facility] PT - Assessmentson 0 PT - Assessments [id number]#1. 00CD:127 [facility] Nonvisit Note - PTon 020 Nonvisit Note - PT Per voicemail: she needs to cancel all of her PT due to personal reasons. KK [facility] Provider Letteron 09-09-2020 Provider Letter September 09, 2020 MARY LEAL [address] [place] [address] MARY LEAL 1970 Dear Mary Leal, You [...] appreciate your understanding. Sincerely, [facility] [address], [place] [address] [facility] PT - Assessmentson 0 PT - Assessments [id number]#1. 00CD:127 [facility] PT - Assessments [id number]. 00CD:127 [facility] PT - Assessmentson 0 PT - Assessments [id number]. 00CD:127 [facility] PT - Consentson 08-31-2020 PT - Consents [id number]. 00CD:127 [facility] Pre-Certification Formon Pre-Certification Form [id number] 0CD:127 [facility] Pre-Certification Form [id number] 0CD:127 [facility] Consent for Procedure/Surger yon 08-26-2020 Consent for Procedure/Surgery [id number] 0CD:127 [facility] Ambulatory Clinical Summaryo n 08-25-2020 Ambulatory Clinical Summary {[id number]}CD:[id number] [facility] Patient Educationon 08-25-20 Patient Education Family [...] an extended amount of time. Only take qfde-hsp-ltwuqaf or prescription medicines for pain, discomfort, or [...] Document Reviewed: 09/07/2009 ExitCare? Patient Information ?2013 [employer]. [facility] Urology Office/Clinic Noteon 08-25-2020 Urology Office/Clinic [...] 08/25/2020 09:51:24. . Documentation recorded by the scribMary rios, accurately reflects the services(s) I performed and decisions made by . Authenticated by Dr. Marmolejo on 08/25/2020 10:02:44. [...] Alzheimer's disease: Mother. Hypertension: Mother and Father. [facility] Comment on above: Result Comment: Elec tronically Signed By: Francie BENSON, Dawna Feldman\.br\Date and Time Signed: 08/25/20 10:06 EDT\.br\Electronically Co-Signed By: Mary Hager\.br\Date and Time Co-Signed: 08/25/20 09:51 EDT Coding Summary.on 08-21-2020 Coding Summary. CODING DATE: 08/21/2020 FINAL [facility] STATUS: PAYOR: Medicaid EA DESCRIPTION [id number] [...] Raymond CphT Date Saved: 08/21/2020 10:42 am [facility] Consenton 08-21-2020 Consent [id number] 0CD:127 [facility] Ambulatory Clinical Summaryo n 08-19-2020 Ambulatory Clinical Summary {[id number] }CD:[id number] [facility] Ambulatory Clinical Summary {[id number]}CD:[id number] Normal [facility] Nonvisit Note - PTon 020 Nonvisit Note - PT Chart reviewed for scheduled eval. KK Normal [facility] Patient Educationon 08-19-20 20 Patient Education [...] your urinary (more content not included)... Normal [facility] Urology Phone Visit- Telehealth [...] only communication with the patient located at [facility] [address] [place] [place] [phone], with no one else. If it is [...] questions/concerns were discussed. Pt. acknowledges understanding. Ordered: [facility] External Ambulatory Referral Urology Procedure Order 2. Dysuria (R30.0: Dysuria) Moderate. Ordered: [facility] External Ambulatory Referral Urology Procedure Order 3. Feeling of incomplete bladder emptying (R39.14: Feeling of incomplete bladder emptying) Pt. does not feel that she is emptying. Ordered: [facility] External Ambulatory Referral Urology Procedure Order 4. Weak urine stream (R39.12: Poor urinary stream) Weak stream w/ moderate hesitancy. Ordered: [facility] External Ambulatory Referral Urology Procedure Order 5. [...] Will order Local anesthesia. ABX sent to [facility] in [place]. Ordered: [facility] External Ambulatory Referral Urology Procedure Order 6. [...] changes. Patient who (more content not included)... [facility] Comment on above: Result Comment: Elec tronically Signed By: Francie BENSON, Dawna Feldman\.br\Date and Time Signed: 08/19/20 08:53 EDT\.br\Electronically Co-Signed By: Christy Gill MA\.br\Date and Time Co-Signed: 08/19/20 08:44 EDT Coding Summary.on 08-12-2020 Coding Summary. CODING DATE: 08/12/2020 FINAL [facility] DSC STATUS: Home (Routine DC) PAYOR: [...] Demi Fried Date Saved: 08/12/2020 09:42 am [facility] Formson 08-11-2020 Forms [id number] 0CD:127 [facility] C Urineon 08-09-2020 Bacteria identified Cx Nom (U) Microbiology PROCEDURE: Urine Culture [R1] SOURCE: U Random BODY SITE: COLLECTED DATE/TIME: 08/07/2020 15:46 EDT RECEIVED DATE/TIME: 08/07/2020 17:10 EDT START DATE/TIME: 08/07/2020 17:10 EDT FREE TEXT SOURCE: Francie BENSON, Dawna Keys. Francie BENSON, Dawna Keys. FINAL REPORTS Final Report [] Verified Date/Time: 08/09/2020 11:56 EDT 500 cfu/ml Mixed skin contaminants Performing Locations R1: This test was performed at: [facility], [address] [place] [address], [address] , [place], [facility] Comment on above: Performed By: #### 2 [id number] ####[facility] [address] [place] [address] Ambulatory Clinical Summaryo n 08-07-2020 Ambulatory Clinical Summary {[id number]}CD:[id number] Normal [facility] Patient Educationon 08-07-20 20 Patient Education [...] Document Reviewed: 07/18/2013 ExitCare? Patient Information ?2013 [employer] [facility]. Family Medicine Overactive Bladder, Adult The [...] bladder, your (more content not included)... Normal [facility] Urology Office/Clinic Noteon 08-07-2020 Urology Office/Clinic [...] information and history for this patient from [employer] There have been no associated [...] setting of nocturia q2hrs and daytime frequency q9usybp with painful post void bladder sensation of [...] and macrobid. Follow-up With When Contact Information Dwana Marmolejo MD In [address] (more content not included)... [facility] Comment on above: Result Comment: Elec tronically Signed By: Dawna Marmolejo MD\.br\Date and Time Signed: 08/07/20 15:54 EDT\.br\Electronically Co-Signed By: Radha Lopez MA\.br\Date and Time Co-Signed: 08/07/20 15:44 EDT Vital Signs Date Time Vital Sign Value Performing Clinician Facility 04-12-2024 13:10-0400 Diastolic blood pressure 75 mm[Hg] Milagros Franco MD, PhD Work Phone: [facility] 04-12-2024 13:10-0400 Heart rate 62 /min Milagros Franco MD, PhD Work Phone: [facility] 04-12-2024 13:10-0400 Respiratory rate 20 /min Milagros Franco MD, PhD Work Phone: [facility] 04-12-2024 13:10-0400 SaO2% (BldA) [Mass fraction] 100 % Milagros Franco MD, PhD Work Phone: [facility] 04-12-2024 13:10-0400 Systolic blood pressure 121 mm[Hg] Milagros Franco MD, PhD Work Phone: [facility] 04-12-2024 11:35-0400 Body height 162.6 cm Milagros Farnco MD, PhD Work Phone: [facility] 04-12-2024 11:35-0400 Body mass index (BMI) [Ratio] 25.75 kg/m2 Milagros Franco MD, PhD Work Phone: [facility] 04-12-2024 11:35-0400 Body temperature 97.9 [degF] Milagros Franco MD, PhD Work Phone: [facility] 04-12-2024 11:35-0400 Body weight 68.04 kg Milagros Franco MD, PhD Work Phone: [facility] 02-27-2024 09:48-0400 Body height 162.6 cm Flower Payam [employer] Work Phone: [facility] 02-27-2024 09:48-0400 Body mass index (BMI) [Ratio] 26.45 kg/m2 Flower Payam [employer] Work Phone: [facility] 02-27-2024 09:48-0400 Body weight 69.9 kg Flower Payam [employer] Work Phone: [facility] 02-27-2024 09:48-0400 Diastolic blood pressure 93 mm[Hg] Flower Payam [employer] Work Phone: [facility] 02-27-2024 09:48-0400 Heart rate 62 /min Flower Payam [employer] Work Phone: [facility] 02-27-2024 09:48-0400 Systolic blood pressure 146 mm[Hg] Flower Payam [employer] Work Phone: [facility] 01-25-2024 09:05-0400 Body height 162.6 cm [employer] Work Phone: [facility] 01-25-2024 09:05-0400 Body weight 68.04 kg [employer] Work Phone: [facility] 01-25-2024 09:05-0400 Heart rate 84 /min [employer] Work Phone: [facility] 01-25-2024 09:05-0400 Respiratory rate 16 /min [employer] Work Phone: [facility] 01-10-2024 12:40-0500 Body height 162.6 cm Cullen Dawkins MD Work Phone: [employer] 01-10-2024 12:40-0500 Body mass index (BMI) [Ratio] 27.89 kg/m2 Cullen Dawkins MD Work Phone: [facility] [facility] 01-10-2024 12:40-0500 Body weight 73.7 kg Cullen Dawkins MD Work Phone: [employer] [facility] 12-20-2023 12:21-0500 Body height 162.6 cm [facility] 12-20-2023 12:21-0500 Body mass index (BMI) [Ratio] 28.38 kg/m2 [facility] 13 [facility] 12-20-2023 12:21-0500 Body temperature 98.2 [degF] [facility] 12-20-2023 12:21-0500 Body weight 75 kg [facility] 13 [facility] 12-20-2023 12:21-0500 Diastolic blood pressure 90 mm[Hg] [facility] 13 [facility] 12-20-2023 12:21-0500 Heart rate 72 /min [facility] 13 [facility] 12-20-2023 12:21-0500 Respiratory rate 18 /min [facility] 12-20-2023 12:21-0500 SaO2% (BldA) [Mass fraction] 96 % [facility] 13 [facility] 12-20-2023 12:21-0500 Systolic blood pressure 138 mm[Hg] [facility] 13 [facility] 11-23-2023 08:14-0500 Body height 162.56 cm DO Shannon Gómez Work Phone: [facility] 11-23-2023 08:14-0500 Body weight 70.3 kg DO Shannon Gómez Work Phone: [facility] 08-12-2023 07:08-0400 Diastolic blood pressure 65 mm[Hg] Lex Salmon MD Work Phone: [facility] 08-12-2023 07:08-0400 Heart rate 77 /min Lex Salmon MD Work Phone: [facility] 08-12-2023 07:08-0400 SaO2% (BldA) [Mass fraction] 98 % Lex Salmon MD Work Phone: [facility] 08-12-2023 07:08-0400 Systolic blood pressure 132 mm[Hg] Lex Salmon MD Work Phone: [facility] 08-12-2023 06:48-0400 Respiratory rate 13 /min Lex Salmon MD Work Phone: [facility] 08-12-2023 00:25-0400 Body height 162.6 cm Lex Salmon MD Work Phone: [facility] 08-12-2023 00:25-0400 Body mass index (BMI) [Ratio] 28.01 kg/m2 Lex Salmon MD Work Phone: [facility] 08-12-2023 00:25-0400 Body temperature 97.59 [degF] Lex Salmon MD Work Phone: [facility] 08-12-2023 00:25-0400 Body weight 74.03 kg Lex Salmon MD Work Phone: [facility] 07-31-2023 14:27-0400 Body height 162.6 cm Nelsy Chávez [employer] Work Phone: [facility] 07-31-2023 14:27-0400 Body weight 69.85 kg Nelsy Chávez [employer] Work Phone: [facility] 07-31-2023 14:27-0400 Diastolic blood pressure 96 mm[Hg] Nelsy Chávez [employer] Work Phone: [facility] 07-31-2023 14:27-0400 Heart rate 76 /min Nelsy Chávez [employer] Work Phone: [facility] 07-31-2023 14:27-0400 Systolic blood pressure 136 mm[Hg] Nelsy Chávez [employer] Work Phone: [facility] 06-13-2023 10:37-0400 Body height 162.56 cm Eliceo Gómez Work Phone: [facility] [address] DO Work Phone: 06-13-2023 10:37-0400 Body mass index (BMI) [Ratio] 27.46 kg/m2 Eliceo Gómez Work Phone: [facility] 320 DO Work Phone: 06-13-2023 10:37-0400 Body surface area Derived from formula 1.78 m2 Eliceo Gómez Work Phone: [facility] 320 DO Work Phone: 06-13-2023 10:37-0400 Body weight 72.58 kg Eliceo Gómez Work Phone: [facility] [address] DO Work Phone: 06-13-2023 10:37-0400 Diastolic blood pressure 70 mm[Hg] Eliceo Gómez Work Phone: [facility] [address] DO Work Phone: 06-13-2023 10:37-0400 Heart rate 70 /min Eliceo Gómez Work Phone: [facility] [address] DO Work Phone: 06-13-2023 10:37-0400 Systolic blood pressure 100 mm[Hg] Eliceo Gómez Work Phone: [facility] DO Work Phone: 06-13-2023 10:37-0400 11 1 Eliceo Gómez Work Phone: [facility] 320 DO Work Phone: Comment on above: PHQ-9 06-05-2023 13:23-0400 Diastolic blood pressure 68 mm[Hg] DO Shannon Parish Szymanskileigha Work Phone: [facility] 06-05-2023 13:23-0400 Heart rate 72 /min DO Shannon Gómez Work Phone: [facility] 06-05-2023 13:23-0400 Respiratory rate 18 /min DO Shannon Gómez Work Phone: [facility] 06-05-2023 13:23-0400 SaO2% (BldA) [Mass fraction] 97 % DO Shannon Gómez Work Phone: [facility] 06-05-2023 13:23-0400 Systolic blood pressure 129 mm[Hg] DO Shannon Gómez Work Phone: [facility] 06-05-2023 09:32-0400 Body height 162.56 cm DO Shannon Gómez Work Phone: [facility] 06-05-2023 09:32-0400 Body weight 73.9 kg DO Shannon Gómez Work Phone: [facility] 06-05-2023 09:31-0400 Body temperature 97.5 [degF] DO Shannon Gómez Work Phone: [facility] 01-16-2023 13:18-0400 Body height 162.6 cm [facility] 01-16-2023 13:18-0400 Body weight 68.04 kg [facility] 11-21-2022 08:00-0500 Body height 162.6 cm [facility] 2 Work Phone: [facility] 11-21-2022 08:00-0500 Body weight 64.86 kg [facility] 2 Work Phone: [facility] 10-11-2022 10:08-0500 Body height 162.6 cm Isra Masters DO Work Phone: [facility] 10-11-2022 10:08-0500 Body weight 78.02 kg Isra Masters DO Work Phone: [facility] 10-11-2022 10:08-0500 Diastolic blood pressure 97 mm[Hg] Isra Masters DO Work Phone: [facility] 10-11-2022 10:08-0500 Heart rate 89 /min Isra Masters DO Work Phone: [facility] 10-11-2022 10:08-0500 Systolic blood pressure 141 mm[Hg] Isra Masters DO Work Phone: [facility] 10-10-2022 14:30-0500 Body height 162.56 cm Beto Cartagena Other [facility] Other 10-10-2022 14:30-0500 Body mass index (BMI) [Ratio] 28.66 kg/m2 Beto Olexa Other [facility] Other 10-10-2022 14:30-0500 Body weight 75.75 kg Beto Olexa Other [facility] Other 07-26-2022 11:13-0400 Body height 162.6 cm Mary Obrien MD Work Phone: [facility] 07-26-2022 11:13-0400 Body temperature 97.5 [degF] Mary Obrien MD Work Phone: [facility] 07-26-2022 11:13-0400 Body weight 77.56 kg Mary Obrien MD Work Phone: [facility] 07-26-2022 11:13-0400 Diastolic blood pressure 83 mm[Hg] Mary Obrien MD Work Phone: [facility] 07-26-2022 11:13-0400 Heart rate 95 /min Mary Obrien MD Work Phone: [facility] 07-26-2022 11:13-0400 SaO2% (BldA) [Mass fraction] 97 % Mary Obrien MD Work Phone: [facility] 07-26-2022 11:13-0400 Systolic blood pressure 110 mm[Hg] Mary Obrien MD Work Phone: [facility] 05-26-2022 11:45-0400 Body height 162.56 cm Beto Snyder Other [facility] Other 05-26-2022 11:45-0400 Body mass index (BMI) [Ratio] 29.18 kg/m2 Beto Snyder Other [facility] Other 05-26-2022 11:45-0400 Body weight 77.11 kg Beto Snyder Other [facility] Other 05-12-2022 09:06-0400 Diastolic blood pressure 80 mm[Hg] Eliceo Gómez Work Phone: [facility] 250 DO Work Phone: 05-12-2022 09:06-0400 Systolic blood pressure 126 mm[Hg] Eliceo Gómez Work Phone: [facility] 250 DO Work Phone: 05-12-2022 08:57-0400 Body height 162.56 cm Eliceo Gómez Work Phone: [facility] DO Work Phone: 05-12-2022 08:57-0400 Body mass index (BMI) [Ratio] 29.87 kg/m2 Eliceo Gómez Work Phone: [facility] DO Work Phone: 05-12-2022 08:57-0400 Body surface area Derived from formula 1.84 m2 Eliceo Gómez Work Phone: [facility] DO Work Phone: 05-12-2022 08:57-0400 Body weight 78.93 kg Eliceo Gómez Work Phone: [facility] DO Work Phone: 05-12-2022 08:57-0400 Diastolic blood pressure 80 mm[Hg] Eliceo Gómez Work Phone: [facility] DO Work Phone: 05-12-2022 08:57-0400 Heart rate 68 /min Eliceo Gómez Work Phone: [facility] [employer] 250 DO Work Phone: 05-12-2022 08:57-0400 Systolic blood pressure 130 mm[Hg] Eliceo Gómez Work Phone: [facility] DO Work Phone: 05-10-2022 12:30-0400 Body height 162.56 cm Allison Lutzault Other [facility] Other 05-10-2022 12:30-0400 Body mass index (BMI) [Ratio] 29.18 kg/m2 Allison Lutzault Other [facility] Other 05-10-2022 12:30-0400 Body temperature 97.3 [degF] Allison Lutzault Other [facility] Other 05-10-2022 12:30-0400 Body weight 77.11 kg Allison Lutzault Other [facility] Other 05-10-2022 12:30-0400 Respiratory rate 18 /min Allison Arita Other [facility] Other 05-10-2022 12:30-0400 SaO2% (BldA) [Mass fraction] 98 % Allison Arita Other [facility] Other 04-22-2022 12:04-0400 Body height 162.6 cm Jessi Sheets APRN.[employer] Work Phone: [facility] 04-22-2022 12:04-0400 Body weight 77.56 kg Jessi Sheets APRN.[employer] Work Phone: [facility] 04-22-2022 12:04-0400 Diastolic blood pressure 68 mm[Hg] Jessi Sheets APRN.[employer]ER Work Phone: [facility] 04-22-2022 12:04-0400 Heart rate 76 /min Jessi Sheets APRN.[employer] Work Phone: [facility] 04-22-2022 12:04-0400 SaO2% (BldA) [Mass fraction] 98 % Jessi Sheets [employer] Work Phone: [facility] 04-22-2022 12:04-0400 Systolic blood pressure 104 mm[Hg] Jessi Sheets [employer] Work Phone: [facility] 03-15-2022 16:30-0400 Body height 162.56 cm Beto Snyder Other [facility] Other 03-15-2022 16:30-0400 Body mass index (BMI) [Ratio] 30.55 kg/m2 Beto Snyder Other [facility] Other 03-15-2022 16:30-0400 Body weight 80.74 kg Beto Snyder Other [facility] Other 03-15-2022 08:36-0400 Body height 162.6 cm Isra Masters DO Work Phone: [facility] 03-15-2022 08:36-0400 Body weight 83.01 kg Isra Galarzae DO Work Phone: [facility] 03-15-2022 08:36-0400 Diastolic blood pressure 87 mm[Hg] Isra Masters DO Work Phone: [facility] 03-15-2022 08:36-0400 Heart rate 85 /min Isra Masters DO Work Phone: [facility] 03-15-2022 08:36-0400 SaO2% (BldA) [Mass fraction] 100 % Isra Galarzae DO Work Phone: [facility] 03-15-2022 08:36-0400 Systolic blood pressure 133 mm[Hg] Isra Masters DO Work Phone: [facility] 03-14-2022 10:23-0400 Body height 162.6 cm Pacc 4 Work Phone: [facility] 03-14-2022 10:23-0400 Body temperature 97.2 [degF] Pacc 4 Work Phone: [facility] 03-14-2022 10:23-0400 Body weight 83.01 kg Pacc 4 Work Phone: [facility] 03-14-2022 10:23-0400 Diastolic blood pressure 76 mm[Hg] Pacc 4 Work Phone: [facility] 03-14-2022 10:23-0400 Heart rate 74 /min Pacc 4 Work Phone: [facility] 03-14-2022 10:23-0400 Respiratory rate 16 /min Pacc 4 Work Phone: [facility] 03-14-2022 10:23-0400 SaO2% (BldA) [Mass fraction] 98 % Pacc 4 Work Phone: [facility] 03-14-2022 10:23-0400 Systolic blood pressure 114 mm[Hg] Pacc 4 Work Phone: [facility] 02-18-2022 09:43-0400 Body height 162.6 cm Nelsy Chávez APRN.[employer]AL [employer]ER Work Phone: [facility] 02-18-2022 09:43-0400 Body weight 80.29 kg Nelsy Chávez APRN.[employer]AL F[employer]ER Work Phone: [facility] 02-18-2022 09:43-0400 Diastolic blood pressure 70 mm[Hg] Nelsy Chávez APRN.[employer]AL F[employer]ER Work Phone: [facility] 02-18-2022 09:43-0400 Systolic blood pressure 110 mm[Hg] Nelsy Chávez APRN.[employer]AL [employer]ER Work Phone: [facility] 02-08-2022 14:52-0400 Body height 162.6 cm Mary Obrien MD Work Phone: [facility] 02-08-2022 14:52-0400 Body weight 83.01 kg Mary Obrien MD Work Phone: [facility] 02-08-2022 14:52-0400 Diastolic blood pressure 76 mm[Hg] Mary Obrien MD Work Phone: [facility] 02-08-2022 14:52-0400 Heart rate 79 /min Mary Obrien MD Work Phone: [facility] 02-08-2022 14:52-0400 SaO2% (BldA) [Mass fraction] 97 % Mary Obrien MD Work Phone: [facility] 02-08-2022 14:52-0400 Systolic blood pressure 113 mm[Hg] Mary Obrien MD Work Phone: [facility] 02-08-2022 11:19-0400 Body weight 83.01 kg Magali Mitchell [employer] Work Phone: [facility] 02-08-2022 11:19-0400 Diastolic blood pressure 76 mm[Hg] Magali Mitchell [employer] Work Phone: [facility] 02-08-2022 11:19-0400 Heart rate 74 /min Magali Mitchell [employer] Work Phone: [facility] 02-08-2022 11:19-0400 Systolic blood pressure 113 mm[Hg] Magali Mitchell [employer] Work Phone: [facility] 10-20-2021 09:45-0500 Body height 162.56 cm Beto Snyder Other [facility] Other 10-20-2021 09:45-0500 Body mass index (BMI) [Ratio] 31.41 kg/m2 Beto Snyder Other [facility] Other 10-20-2021 09:45-0500 Body weight 83.01 kg Beto Snyder Other [facility] Other 08-19-2021 17:10-0400 Body height 162.56 cm Erica Kingston Other [facility] Other 08-19-2021 17:10-0400 Body mass index (BMI) [Ratio] 31.24 kg/m2 Erica Vashti Other [facility] Other 08-19-2021 17:10-0400 Body temperature 97.3 [degF] Erica Kumarmond Other [facility] Other 08-19-2021 17:10-0400 Body weight 82.56 kg Erica Kumarmond Other [facility] Other 08-19-2021 17:10-0400 Diastolic blood pressure 82 mm[Hg] Erica Vashti Other [facility] Other 08-19-2021 17:10-0400 Respiratory rate 18 /min Erica Kumarmond Other [facility] Other 08-19-2021 17:10-0400 SaO2% (BldA) [Mass fraction] 98 % Erica Vashti Other [facility] Other 08-19-2021 17:10-0400 Systolic blood pressure 126 mm[Hg] Erica Vashti Other [facility] Other 08-13-2021 10:15-0400 Body height 162.56 cm Tita Daugherty Other [facility] Other 08-13-2021 10:15-0400 Body mass index (BMI) [Ratio] 30.89 kg/m2 Tita Ginty Other [facility] Other 08-13-2021 10:15-0400 Body temperature 6 [degF] Tita Ginty Other [facility] Other 08-13-2021 10:15-0400 Body weight 81.65 kg Tita Ginty Other [facility] Other 08-13-2021 10:15-0400 SaO2% (BldA) [Mass fraction] 99 % Tita Ginty Other [facility] Other 07-28-2021 09:30-0400 Body height 162.56 cm Beto Snyder Other [facility] Other 07-28-2021 09:30-0400 Body mass index (BMI) [Ratio] 30.89 kg/m2 Beto Snyder Other [facility] Other 07-28-2021 09:30-0400 Body weight 81.65 kg Beto Snyder Other [facility] Other Encounters Encounter Date Encounter Type Care Provider Facility Start: 08-01-2024 End: 08-01-2024 ambulatory ELICEO GÓMEZ Not Available Start: 07-26-2024 End: 07-26-2024 ambulatory [facility] Start: 07-22-2024 End: 07-22-2024 ambulatory Ace Ahumada MD Facility:[facility] Start: 07-15-2024 End: 07-15-2024 ambulatory ELICEO GÓMEZ Not Available Start: 07-11-2024 End: 07-11-2024 ambulatory ELICEO GÓMEZ Not Available Start: 07-01-2024 End: 07-01-2024 ambulatory Ace Ahumada MD Facility: [facility] Start: 06-27-2024 End: 06-27-2024 ambulatory SIDNEY AMEZQUITA Not Available Start: 06-17-2024 End: 06-17-2024 ambulatory Ace Ahumada MD Facility:[facility] Start: 06-14-2024 End: 06-14-2024 ambulatory CARMEN A PETITTI Not Available Start: 06-12-2024 Refill Isra rios DO Work Phone: Gastroenterology Comment on above: Refill Request Start: 06-12-2024 End: 06-12-2024 ambulatory DIPTI ACEVEDO Not Available Start: 06-12-2024 End: 06-12-2024 ambulatory RON KING Not Available Start: 06-03-2024 End: 06-03-2024 ambulatory CARMEN A PETITTI Not Available Start: 05-27-2024 End: 05-27-2024 ambulatory DO Shannon Gómez Work Phone: [facility] Work Phone: Start: 05-27-2024 End: 05-27-2024 Departed Referred DO Shannon Gómez Work Phone: [facility] Start: 05-20-2024 End: 05-20-2024 ambulatory DIPTI ACEVEDO Not Available Start: 05-14-2024 End: 05-14-2024 ambulatory ELICEO GÓMEZ Not Available Start: 05-13-2024 End: 05-13-2024 ambulatory Ace Ahumada MD Facility: [facility] Start: 05-06-2024 End: 05-06-2024 ambulatory NELSY SNYDER Not Available Start: 05-02-2024 End: 05-02-2024 ambulatory ELICEO GÓMEZ Not Available Start: 04-30-2024 End: 04-30-2024 Patient encounter procedure DO Shannon Gómez Work Phone: [facility] [address] Work Phone: Start: 04-30-2024 End: 04-30-2024 ambulatory DO Shannon Gómez Work Phone: [facility] Work Phone: Start: 04-28-2024 End: 04-29-2024 ambulatory [facility] Start: 04-28-2024 End: 04-28-2024 ambulatory [facility] Start: 04-22-2024 End: 04-22-2024 ambulatory Ace Ahumada MD Facility:[facility] Start: 04-15-2024 End: 04-15-2024 ambulatory SIDNEY AMEZQUITA Not Available Start: 04-12-2024 ambulatory Shannon Ramos ty:[facility] Start: 04-12-2024 End: 04-12-2024 Subsequent hospital visit by physician Milagros Franco MD, PhD Work Phone: [facility] Comment on above: Arrived Start: 04-03-2024 End: 04-03-2024 ambulatory [facility] Start: 03-26-2024 End: 03-26-2024 ambulatory JES MARTINEZ Not Available Start: 03-25-2024 End: 03-25-2024 ambulatory Ace Ahumada MD Facility:[facility] Start: 03-14-2024 End: 03-14-2024 ambulatory RON KING Not Available Start: 03-12-2024 ambulatory Flower Daniele on [employer] Work Phone: URO/Gynecology Comment on above: Estradiol vaginal cr eam Start: 03-08-2024 ambulatory SELF SELF Facility:[facility] Start: 03-06-2024 ambulatory RADHA CARDENAS Facilit y:[facility] Start: 03-06-2024 ambulatory RADHA CARDENAS Facilit y:[facility] Start: 03-06-2024 ambulatory Shannon Ramos ty:[facility] Start: 03-04-2024 End: 03-04-2024 ambulatory Ace Ahumada MD Facility: [facility] Start: 02-27-2024 End: 02-27-2024 ambulatory FLOWER LOPEZ Facility:[facility] Start: 02-27-2024 End: 02-27-2024 Patient encounter procedure Flower Payam [employer] Work Phone: URO/Gynecology Comment on above: Post-operative state (Primary Dx); Vaginal burning Start: 02-26-2024 End: 02-26-2024 ambulatory Ace Ahumada MD Facility: [facility] Start: 02-11-2024 End: 02-11-2024 ambulatory ELICEO GÓMEZ JR Facility:[facility] Start: 02-11-2024 End: 02-11-2024 ambulatory Lissa Doyle [employer] Work Phone: Telemedicine Comment on above: Procedure and treatm ent not carried out for other reasons (Primary Dx) Start: 02-11-2024 End: 02-11-2024 Telemedicine consultation with patient Lissa Doyle [employer] Work Phone: [facility] Start: 02-09-2024 End: 02-09-2024 ambulatory Pam Wang MD Work Phone: URO/Gynecology Comment on above: Yeast infection Start: 02-07-2024 End: 02-07-2024 ambulatory [facility] Start: 01-27-2024 Telephone encounter Radha florez MD Work Phone: Gynecology Start: 01-26-2024 End: 01-26-2024 ambulatory ELICEO GÓMEZ JR Facility:[facility] Start: 01-25-2024 End: 01-25-2024 Telemedicine consultation with patient Nurse Supervisor [employer] Work Phone: [facility] Start: 01-25-2024 Encounter for other preprocedural examination PAM WANG [facility] Start: 01-25-2024 End: 01-25-[address] [facility] Work Phone: [facility] Start: 01-25-2024 End: 01-25-2024 ambulatory Nurse Supervisor [employer] Work Phone: Pre Anesthesia Comment on above: Pre-op examination ( Primary Dx); Obesity (BMI 30.0-34.9); Mild persistent asthma without complication; CHUCKIE (obstructive sleep apnea); Primary hypertension; Gastroparesis; Gastroesophageal reflux disease, unspecified whether esophagitis present Educational circumst ances (Primary Dx) Start: 01-25-2024 End: 01-25-2024 Preprocedural examination done Pac Virtual Work Phone: [facility] Work Phone: Start: 01-23-2024 End: 01-23-2024 ambulatory ELICEO GÓMEZ Not Available Start: 01-15-2024 End: 01-15-2024 ambulatory Ace Ahumada MD Facility:[facility] Start: 01-10-2024 End: 01-10-2024 ambulatory CULLEN DAWKINS [facility] Start: 01-10-2024 End: 01-10-2024 Postop follow up visit related to original px Cullen Dawkins MD Work Phone: [facility] Comment on above: CHUCKIE (obstructive sle ep apnea) (Primary Dx) Start: 01-03-2024 End: 01-03-2024 Evaluation and management of inpatient RAJIV Braden [facility] Start: 01-02-2024 End: 01-03-2024 Evaluation and management of inpatient [facility] Start: 01-02-2024 End: 01-02-2024 Evaluation and management of inpatient [facility] Start: 12-27-2023 Telephone encounter Cullen glover MD Work Phone: [facility] Start: 12-25-2023 ambulatory Pam rios MD Work Phone: URO/Gynecology Comment on above: Having another stimu lator besides bladder Start: 12-25-2023 Telephone encounter Pam simon MD Work Phone: Gynecology Comment on above: Question Start: 12-25-2023 End: 12-25-2023 ambulatory Ace Ahumada MD Facility:[facility] Start: 12-20-2023 End: 12-20-2023 ambulatory CULLEN DAWKINS [facility] Start: 12-20-2023 Encounter for other preprocedural examination RAJIV WILKINSON [facility] Start: 12-20-2023 End: 12-20-2023 Patient encounter procedure [facility] Comment on above: Pre-op testing (Prim tomer Dx) Start: 12-20-2023 End: 12-20-2023 Patient encounter status [facility] Start: 12-11-2023 End: 12-11-2023 ambulatory Ace Ahumada MD Facility:[facility] Start: 11-30-2023 End: 11-30-2023 ambulatory AEGLE VAZQUEZ Not Available Start: 11-27-2023 End: 11-27-2023 ambulatory Beto Snyder Other [facility] Other Start: 11-27-2023 Telephone encounter [facility] Start: 11-23-2023 End: 11-23-2023 Patient encounter procedure DO Shannon Gómez Work Phone: [facility] Work Phone: Start: 11-23-2023 End: 11-23-2023 ambulatory DO Shannon Gómez Work Phone: [facility] Work Phone: Start: 11-21-2023 End: 11-21-2023 ambulatory ELICEO GÓMEZ JR Facility:[facility] Start: 11-16-2023 End: 11-16-2023 ambulatory Beto Snyder Other [facility] Other Start: 11-16-2023 Telephone encounter [facility] Start: 11-14-2023 End: 11-14-2023 ambulatory DIPTI Keys KRISTINA Not Available Start: 11-14-2023 End: 11-14-2023 ambulatory EAGLE VAZQUEZ Not Available Start: 11-10-2023 End: 11-10-2023 ambulatory ELICEO GÓMEZ Not Available Start: 11-08-2023 Telephone encounter Emily Zamora [facility] Neu[facility] Start: 10-31-2023 End: 10-31-2023 ambulatory RON KING Not Available Start: 10-27-2023 End: 10-27-2023 ambulatory EAGLE VAZQUEZ Not Available Start: 10-26-2023 Telephone encounter [facility] Start: 10-26-2023 End: 10-26-2023 ambulatory RON Nicole TATALeah [facility] Other Start: 10-24-2023 End: 10-24-2023 ambulatory EAGLE VAZQUEZ Not Available Start: 10-23-2023 End: 10-23-2023 ambulatory [facility] Start: 10-10-2023 End: 10-10-2023 ambulatory ELICEO GÓMEZ JR Facility:[facility] Start: 10-06-2023 End: 10-06-2023 ambulatory Beto Snyder Other [facility] Other Start: 10-06-2023 Telephone encounter [facility] Start: 10-03-2023 End: 10-03-2023 ambulatory ELICEO GÓMEZ Not Available Start: 09-27-2023 End: 09-27-2023 ambulatory Pam Wang MD Work Phone: Urogynecology Comment on above: Worsening Start: 09-27-2023 Refill Doris Arias APRN.KWESI Work Phone (unformatted): [phone] Urogynecology Comment on above: Med Change Request Start: 09-21-2023 End: 09-21-2023 ambulatory ELICEO GÓMEZ Not Available Start: 09-11-2023 End: 09-11-2023 ambulatory PAM WANG Facility:[facility] Start: 08-23-2023 End: 08-23-2023 ambulatory GIANA [facility] Start: 08-12-2023 End: 08-12-2023 Emergency department patient visit LEX SALMON [facility] Start: 08-12-2023 End: 08-12-2023 Emergency department patient visit Lex Salmon MD Work Phone: [facility] Emergency Dept Comment on above: Upper abdominal pain (Primary Dx) Start: 08-09-2023 ambulatory Mary Obrien MD Work Phone: Colorectal Surgery Comment on above: Response Start: 08-07-2023 End: 08-07-2023 ambulatory Mary Obrien MD Work Phone: Colorectal Surgery Comment on above: Colon Start: 08-01-[address] Eliceo Gómez Jr Facility: Start: 07-31-2023 End: 07-31-2023 ambulatory ELICEO GÓMEZ JR Facility:[facility] Start: 07-31-2023 End: 07-31-2023 Patient encounter procedure Nelsy Philippeludmila HAMMER Work Phone: URO/Gynecology Comment on above: Incomplete bladder e mptying (Primary Dx); Constipation, unspecified constipation type; Urinary urgency; Urinary frequency; Nocturia Start: 07-17-2023 (Procedure) Win Snyder [facility] Start: 07-17-2023 End: 07-17-2023 ambulatory Beto Snyder Other [facility] Other Start: 07-12-2023 End: 07-12-2023 ambulatory Beto Snyder Other [facility] Other Start: 07-12-2023 Telephone encounter [facility] Start: 06-13-2023 Office consultation new/estab patient 60 min Eliceo Gómez Work Phone: [facility] [facility] DO Work Phone: Start: 06-13-[address] Dipti Anaya Facility:[id number] Start: 06-07-[address] Dipti Anaya Facility:[id number] Start: 06-05-2023 End: 06-05-2023 Emergency department patient visit DO Shannon Gómez Work Phone: [facility]-Emergency [facility] Work Phone: Start: 05-28-2023 ambulatory Pam rios MD Work Phone: URO/Gynecology Comment on above: Problems with urinat ing Start: 04-26-2023 End: 04-26-2023 ambulatory Beto Snyder Other [facility] Other Start: 04-26-2023 Office outpatient vi sit 25 minutes Beto Snyder [facility] [place] Start: 04-11-2023 Refill Isra S Clin e DO Work Phone: Gastroenterology Comment on above: Refill Request Start: 04-04-2023 End: 04-05-[address] Isatu GÓMEZ Facility:[facility] Start: 03-19-2023 ambulatory Isra S Clin e DO Work Phone: Gastroenterology Comment on above: Stool sample results Start: 03-17-2023 End: 03-17-2023 ambulatory DO Shannon Gómez Work Phone: [facility] Work Phone: Start: 03-17-2023 End: 03-17-2023 Discharged Recurring DO Shannon Gómez Work Phone: [facility] [place] Work Phone: Start: 03-15-2023 Orders Only Isra [...] appointment) Start: 01-16-2023 End: 01-16-2023 Admission to [facility] Start: 01-16-2023 End: 01-16-2023 ambulatory Virginia Mason [...] with patient Winston Hannah DO Work Phone: [facility] Start: 12-28-2022 ambulatory Yoni Tuttle MD Work Phone: NEUROLOGY Comment on above: No response Start: 12-26-2022 End: 12-26-2022 Subsequent hospital visit by physician Gi [facility] Qb1 (I-Stat) Radiology Start: 12-23-2022 ambulatory oYni Tuttle MD Work Phone: NEUROLOGY Comment on above: Cpap Start: 12-22-2022 End: 12-22-2022 ambulatory Winston Keys Brielle DO Work Phone: General Surgery Comment on above: Pylorospasm (Primary Dx); Functional dyspepsia; Gastroesophageal reflux disease with esophagitis without hemorrhage Start: 12-22-2022 End: 12-22-2022 Telemedicine consultation with patient Winston Hannah DO Work Phone: [facility] Start: 12-21-2022 End: 12-22-2022 ambulatory SADE Ludmila [facility] Facility: Start: 12-15-2022 End: 12-15-2022 Manual pelvic examination Mary Obrien MD Work Phone: Colorectal Surgery Comment on above: Colonic inertia (Phoebe unique Dx); Pelvic floor dysfunction; Nausea; Gastroparesis Start: 12-15-2022 End: 12-15-2022 Telemedicine consultation with patient Mary Obrien MD Work Phone: [facility] Start: 12-14-2022 ambulatory Yoni Tuttle MD Work [...] 12-05-2022 ambulatory Winston chand DO Work Phone: [facility] Start: 12-02-2022 ambulatory Isra S Clin e DO Work Phone: [facility] Start: 12-02-2022 Telephone encounter Yoni Tuttle MD Work Phone: Neurology Comment on above: Returning Nurse Call Start: 12-01-2022 End: 12-02-2022 ambulatory NIECY DURON Facility:[facility] Start: 11-30-2022 End: 11-30-2022 ambulatory Isra S Masters DO Work Phone: Gastroenterology Comment on above: Chronic idiopathic c onstipation (Primary Dx); Nausea Start: 11-30-2022 End: 11-30-2022 Telemedicine consultation with patient Isra S Masters DO Work Phone: [facility] Start: 11-24-2022 ambulatory Isra S Clin [...] End: 11-21-2022 Admission to establishment [facility] Work Phone: [facility] Start: 11-21-2022 End: 11-21-2022 Preprocedural examination done [facility] Work Phone: Pre Anesthesia Start: 11-17-2022 ambulatory Annmarie Gillespie RN Gastroe nterology Start: 11-17-2022 Patient encounter procedure Annmarie Gillespie RN [facility] Start: 11-17-2022 End: 11-17-2022 Subsequent hospital visit by physician Capsule Work Phone: Gastroenterology Start: 11-16-2022 ambulatory Yoni Tuttle MD Work Phone: NEUROLOGY Comment on above: The delay Start: 11-15-2022 ambulatory Yoni Tuttle MD Work Phone: NEUROLOGY Comment on above: Labs Start: 11-14-2022 End: 11-15-2022 ambulatory NIECY DURON Facility:[facility] Start: 11-10-2022 Telephone encounter Annmarie Gillespie RNmetal melter Comment on above: [employer] Start: 11-10-2022 End: 11-11-2022 ambulatory NIECY KAREEM Facility:[facility] Start: 11-09-2022 Telephone encounter Yoni Tuttle [...] Encounter for preprocedural laboratory examination SADE FELIX [facility] Start: 10-20-2022 End: 10-20-2022 ambulatory Isra [...] 10-14-2022 ambulatory DO Shannon Gómez Work Phone: [facility] Work Phone: Start: 10-14-2022 End: 10-14-2022 Discharged Recurring DO Shannon Gómez Work Phone: [facility] [place] Work Phone: Start: 10-13-2022 End: 10-14-2022 ambulatory SADE FELIX Facility:[facility] Start: 10-13-2022 End: 10-14-2022 Encounter for preprocedural laboratory examination SADE FELIX Facility:[facility] Start: 10-11-2022 End: 10-11-2022 ambulatory Beto Cartagena Other [facility] Other Start: 10-11-2022 Telephone encounter Beto Cartagena [facility] [employer] Start: 10-11-2022 End: 10-11-2022 Patient encounter procedure Isra Masters DO Work Phone: Gastroenterology Comment on above: Gas bloat syndrome ( Primary Dx); Chronic idiopathic constipation; Gastroparesis Start: 10-10-2022 End: 10-10-2022 ambulatory Beto Cartagena Other [facility] Other Start: 10-10-2022 Office outpatient ne w 30 minutes Beto Cartagena [facility] Start: 10-06-2022 End: 10-06-2022 ambulatory Beto Snyder Other [facility] Other Start: 10-06-2022 Patient encounter procedure Beto Snyder [facility] [place] Start: 09-28-2022 Encounter for other preprocedural examination [facility] Start: 09-28-2022 Encounter for preprocedural cardiovascular examination [facility] Start: 09-26-2022 End: 09-27-2022 ambulatory [facility] Facility: Start: 09-22-2022 Office outpatient vi sit 25 minutes Beto BRICE [facility] [place] Start: 09-22-2022 Telephone encounter Beto Lunsford [facility] [place] Start: 09-22-2022 End: 09-22-2022 ambulatory DO Shannon Gómez Work Phone: [facility] Other Start: 09-22-2022 End: 09-22-2022 Patient encounter procedure DO Shannon Gómez Work Phone: [facility] Start: 09-14-2022 End: 09-14-2022 ambulatory Eliceo [employer] Other [facility] Other Start: 09-14-2022 Encounter by sierra Gómez [facility] [place] Start: 09-14-2022 Office outpatient vi sit 15 minutes Beto BRICE [facility] [place] Start: 09-14-2022 Telephone encounter [facility] Start: 08-16-2022 ambulatory Mary Obrien MD Work Phone: Colorectal Surgery Comment on above: CT results Ct scan result quest ion Start: 08-16-2022 E-mail encounter fro m caregiver Mary Obrien MD Work Phone: [facility] Start: 08-12-2022 End: 08-12-2022 Subsequent hospital visit by physician [facility] Start: 07-27-2022 End: 07-28-2022 ambulatory [facility] Facility: Start: 07-26-2022 Telephone encounter Isra Masters DO Work Phone: Gastroenterology Comment on above: Medication Problem; Medication 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 ([place] for Dexlansoprazole) Start: 07-26-2022 End: 07-26-2022 Patient encounter procedure Mary Obrien MD Work Phone: Colorectal Surgery Comment on above: Follow-up examinatio n after colorectal surgery (Primary Dx); Periumbilical abdominal pain; Outlet dysfunction constipation; Colonic inertia Start: 06-08-2022 (Procedure) Short Beto Snyder [facility] Start: 06-08-2022 End: 06-08-2022 ambulatory Beto Snyder Other [facility] Other Start: 05-30-2022 Refill Mary Obrien MD Work Phone: Colorectal Surgery Comment on above: Refill Request Start: 05-26-2022 End: 05-26-2022 ambulatory Beto Snyder Other [facility] Other Start: 05-26-2022 Office outpatient vi sit 25 minutes Beto Snyder [facility] [place] Start: 05-12-2022 Office consultation new/estab patient 60 min Eliceo Gómez Work Phone: [facility] DO Work Phone: Start: 05-10-2022 End: 05-10-2022 ambulatory Allison Arita Other [facility] Other Start: 05-10-2022 Office outpatient vi sit 15 minutes Allison Arita [facility] Start: 05-03-2022 Telephone encounter Mary brewer MD Work Phone: Colorectal Surgery Comment on above: [employer] [facility] Start: 04-26-2022 Telephone encounter Mary brewer MD Work Phone: Colorectal Surgery Comment on above: Patient Question Start: 04-22-2022 End: 04-22-2022 Patient encounter procedure Jessi Sheets APRN.CNP Work Phone: Colorectal Surgery Comment on above: Follow-up examinatio n after colorectal surgery (Primary Dx); Pelvic floor dysfunction Start: 04-17-2022 End: 04-17-2022 ambulatory CHASITY FREIRE . Facility: Start: 04-07-2022 Telephone encounter Rachael Keys [facility] Department Comment on above: PostOp Follow-up Start: 03-22-2022 Telephone encounter Mary brewer MD Work Phone: Colorectal Surgery Comment on above: Patient Question Start: 03-15-2022 End: 03-15-2022 ambulatory Beto Snyder Other [facility] Other Start: 03-15-2022 Office outpatient vi sit 15 minutes Beto Snyder [facility] [place] Start: 03-15-2022 Telephone encounter Mary brewer MD Work Phone: Colorectal Surgery Comment on above: [employer] [facility] Medication Preauthor ization ([place] for Dexilant renewal) Outside Labs Results Start: 03-15-2022 End: 03-15-2022 Patient encounter procedure Isra Masters DO Work Phone: Gastroenterology Comment on above: Gastroesophageal ref lux disease, unspecified whether esophagitis present; Chronic idiopathic constipation Start: 03-14-2022 End: 03-14-2022 [facility] 4 Work Phone: Pre Anesthesia Comment on above: Preop examination (P rimary Dx); Attention to ileostomy (HCC); Primary hypertension; Gastroparesis; Gastroesophageal reflux disease, unspecified whether esophagitis present; Mild persistent asthma without complication; Bipolar 1 disorder ([facility]); Obesity (BMI 30.0-34.9) Start: 03-14-2022 End: 03-14-2022 Preprocedural examination done [facility] Work Phone: Pre Anesthesia Start: 02-28-2022 Telephone encounter Isra Masters DO Work Phone: Gastroenterology Comment on above: Appointment (for scr ipt refill) Start: 02-18-2022 End: 02-18-2022 Patient encounter procedure Nelsy Chávez APRN.[employer]AL F[employer]RER Work Phone: URO/Gynecology Comment on above: Postoperative state (Primary Dx) Start: 02-11-2022 End: 02-11-2022 ambulatory Flaca Bartholomew PT Work Phone: [place] Start: 02-11-2022 End: 02-11-2022 Follow-up encounter Flaca Bartholomew PT Work Phone: [facility] Physical Therapy Comment on above: Pelvic floor dysfunc tion (Primary Dx); Lack of coordination; Follow-up examination after colorectal surgery Start: 02-09-2022 (Procedure) Short Beto Snyder [facility] Start: 02-09-2022 End: 02-09-2022 ambulatory Beto Snyder Other [facility] Other Start: 02-08-2022 End: 02-08-2022 Patient encounter procedure Mary Obrien MD Work Phone: Colorectal Surgery Comment on above: Follow-up examinatio n after colorectal surgery (Primary Dx) Post-operative state (Primary Dx); Yeast infection of the skin Start: 02-01-2022 Refill Isra S Clin e DO Work Phone: Gastroenterology Comment on above: Refill Request (dexl ansoprazole) Start: 01-31-2022 End: 01-31-2022 ambulatory Newton Woodward PT Work Phone: [facility] Start: 01-31-2022 End: 01-31-2022 Follow-up encounter Newton Woodward PT Work Phone: [facility] Physical Therapy Comment on above: Pelvic floor dysfunc tion (Primary Dx); Lack of coordination; Follow-up examination after colorectal surgery Start: 11-25-2021 End: 11-25-2021 ambulatory Beto Snyder Other [facility] Other Start: 11-25-2021 Office outpatient vi sit 25 minutes Beto Snyder [facility] [place] Start: 11-17-2021 End: 11-18-2021 ambulatory [facility] Start: 10-20-2021 End: 10-20-2021 ambulatory Beto Snyder Other [facility] Other Start: 10-20-2021 Office outpatient vi sit 25 minutes Beto Snyder [facility] [place] Start: 10-13-2021 (Procedure) Short Beto Snyder [facility] Start: 10-13-2021 End: 10-13-2021 ambulatory Beto Snyder Other [facility] Other Start: 09-06-2021 Office outpatient vi sit 25 minutes Beto Fernándeztonia [facility] [place] Start: 08-19-2021 Office outpatient vi sit 15 minutes Erica Kumarmond [facility] Start: 08-13-2021 Office outpatient vi sit 15 minutes Tita Pinaalvaro [facility] Start: 08-12-2021 Office outpatient vi sit 25 minutes Beto Snyder [facility] [place] Start: 07-28-2021 Office outpatient vi sit 25 minutes Beto Pradeeptonia [facility] [place] Procedures Date Procedure Procedure Detail Performing Clinician Start: 07-26-2024 Follow-up visit Follow-up PAULINE HOUSTON Start: 04-30-2024 MRI of right ankle DO Isatu Gómez Work Phone: Start: 04-12-2024 DIAGNOSTIC UPPER ENDOSCOPY Padmaja Ledezma MD, PhD Work Phone: Start: 02-27-2024 BACTERIAL VAGINOSIS NAAT Flower Lopez GR[employer] INTER[employer] Work Phone: Start: 02-27-2024 Iadna trichomonas vaginalis amplified probe tech Flower Lopez [employer] Work Phone: Start: 02-27-2024 Urnls dip stick/tabl et rgnt auto w/o microscopy Flower Lopez [employer] Work Phone: Start: 12-20-2023 Basic metabolic pane l calcium total Carloine Brewer MD Work Phone: Start: 11-23-2023 Radionuclide imaging of liver and/or biliary tract using radioactive isotope DO Shannon Gómez Work Phone: Start: 11-01-2023 Lipid 1996 panel - S jay or Plasma Pam Wang MD Work Phone: Start: 10-23-2023 Follow-up visit Follow-up PAULINE CHRISTENSEN Start: 10-23-2023 Adult depression scr eening assessment Emily Zamora Start: 08-12-2023 Assay of troponin quantitative Lev Ritter APRN [employer] Work Phone: Start: 08-12-2023 Ct abdomen & pelvis w/contrast material Lev Ritter APRN [employer] Work Phone: Start: 08-12-2023 Urnls dip stick/tabl et reagent auto microscopy Lex Salmon MD Work Phone: Start: 08-12-2023 Basic metabolic pane l calcium total Lex Salmon MD Work Phone: Start: 08-12-2023 DARK GREEN TOP Lex buitrago MD Work Phone: Start: 08-12-2023 GOLD TOP Lex bacon MD Work Phone: Start: 08-12-2023 Hepatic function panel Lev Ritter APRN [employer] Work Phone: Start: 08-12-2023 LIGHT BLUE TOP [...] et rgnt auto w/o microscopy Nelsy Chávez APRN.METAL FURRER Work Phone: Start: 06-05-2023 Plain chest X-ray [...] - S jay or Plasma Nelsy Chávez GR[employer] INTER[employer]ER Work Phone: Start: 02-08-2022 Urnls dip stick/tabl et rgnt auto w/o microscopy Magali Mitchell GRADU[employer] INTER[employer]ER Work Phone: Start: 12-16-2021 Antibody screen Comment on above: Performed By: #### T SCR30 ####[address] [phone] Start: 10-15-2021 Antibody screen Comment on above: Performed By: #### T SCR30 ####[place] [phone] Start: 06-28-2021 Mammography Mary brewer MD Work Phone: Start: 02-18-2021 H/O: surgery S/P nasal septoplasty C hrluisa sem Start: 02-18-2021 History of tonsillectomy S/P tonsill ectomy Emily Hissem Colonoscopy Eliceo R Daila Work Phone: Hysterectomy Eliceo R Dalia Work Phone: Ligation of fallopian tube G eorbahman Gómez Work Phone: Operation on colon Eliceo Gómez Work Phone: Operation on rectum Eliceo Gómez Work Phone: Operative procedure on foot Eliceo Gómez Work Phone: Operative procedure on hand lEiceo Gómez Work Phone: Operative procedure on knee Eliceo Gómez Work Phone: Procedure on neck Eliceo roberson Work Phone: Repair of musculoten dinous cuff of shoulder Eliceo Gómez Work Phone: Tonsillectomy and adenoidectomy Eliceo Gómez Work Phone: Plan of Treatment Date Care Activity Detail Author Start: 06-22-2030 Administration of diphtheria + tetanus + acellular pertussis vaccine DTAP/TDAP/TD VACCINE (2 - Td or Tdap) [facility] Start: 06-22-2030 DTaP,Tdap and Td Vaccines (2 - Td or Tdap) DTaP,Tdap and Td Vaccines (2 - Td or Tdap) [facility] Start: 06-22-2030 Tetanus vaccination TETANUS [facility] Start: 06-22-2030 Urine microalbumin profile DTaP,Tdap,Td Vaccine (2 - Td or Tdap) [facility] Start: 11-01-2028 Lipid panel Lipid Screening [facility] Start: 12-05-2027 COLORECTAL CANCER SCREENING COLORECTAL CANCER SCREENING [facility] Start: 12-05-2027 Screening for malign ant neoplasm of colon [facility] Start: 12-05-2027 SIGMOIDOSCOPY SIGMOIDOSCOPY [facility] Start: 03-02-2027 Lipid 1996 panel - S jay or Plasma Lipid Screening [facility] Start: 03-02-2027 LIPID SCREEN LIPID SCREEN [facility] Start: 12-20-2026 Diabetes Screening Diabetes Screenin [facility] Start: 08-12-2026 Diabetes Screening Diabetes Screenin [facility] Start: 04-05-2025 DIABETES SCREEN DIABETES SCREEN [facility] Start: 04-05-2025 Diabetes Screening Diabetes Screenin g [facility] Start: 03-14-2025 DIABETES SCREEN DIABETES SCREEN [facility] Start: 01-09-2025 Adult BMI Screening Adult BMI Screen ing [facility] Start: 01-09-2025 Tobacco Screening Tobacco Screening [facility] Start: 12-26-2024 DIABETES SCREEN DIABETES SCREEN [facility] Start: 12-20-2024 Adult BMI Screening Adult BMI Screen ing [facility] Start: 12-20-2024 Tobacco Screening Tobacco Screening [facility] Start: 10-31-2024 Screening for malign ant neoplasm of breast Mammogram Screening [facility] Start: 10-23-2024 Adult BMI Screening Adult BMI Screen ing [facility] Start: 10-23-2024 Depression Screening Depression Scre ening [facility] Start: 10-23-2024 Tobacco Screening Tobacco Screening [facility] Start: 10-10-2024 BP Controlled (<130/80) BP Controlle d (<130/80) [facility] Start: 07-07-2024 Influenza vaccination Influenza Vacc ine (#1) [facility] Start: 05-31-2024 Zoster vaccine hzv l annika for subcutaneous use ZOSTER (SHINGLES) VACCINE (2 of 2) [facility] Start: 04-18-2024 End: 04-18-2024 Patient encounter procedure 04/18/2024 1:30 PM EDT Office Visit [facility] [address] [place] [phone] Pauline Christensen MD [address] [place] [address], [address] [place] [phone] [facility] Start: 01-10-2024 End: 01-10-2024 Patient encounter procedure 01/10/2024 12:45 PM EST Office Visit [facility] [address] [place] [address], [address] [place] [address] Cullen Dawkins MD [address] [place] [address] [address] [place] [address] [facility] Start: 01-02-2024 End: 01-02-2024 Admission to same day surgery center 01/02/2024 11:00 AM EST - 01/02/2024 3:30 PM EST Surgery [facility] [address] [place] [address] Cullen Dawkins MD [address] [place] [address] [address] [place] [address] INSERTION STIMULATOR NERVE HYPOGLOSSAL [19614 (CPT )] [facility] Comment on above: INSERTION STIMULATOR NERVE HYPOGLOSSAL [98295 (CPT )] Start: 01-02-2024 End: 01-02-2024 INSERTION STIMULATOR NERVE HYPOGLOSSAL INSERTION STIMULATOR NERVE HYPOGLOSSAL CHUCKIE (obstructive sleep apnea) 01/02/2024 11:00 AM [facility] Start: 01-02-2024 Subsequent hospital visit by physician 01/02/2024 11:00 AM [facility] [address] [place] [address] Cullen Dawkins MD [address] [place] [address] [address] [place] [address] [facility] Start: 11-06-2023 Behavioral Health Screening Behavioral Health Screening [facility] Start: 11-06-2023 Depression Assessment Depression Ass essment [facility] Start: 09-27-2023 End: 12-27-2023 Bacteria identified in Urine by Culture URINE CULTURE Microbiology Routine Burning with urination Expected: 09/27/2023, Expires: 12/27/2023 [facility] Work Phone: Comment on above: Expected: 09/27/2023 , Expires: 12/27/2023 Start: 09-14-2023 Screening for malign ant neoplasm of breast MAMMOGRAM [facility] Start: 08-01-2023 FUV, Provider: Dipti Anaya, Status: Pen, Time: 11:00 AM FUV, Provider: Dipti Anaya, Status: Pen, Time: 11:00 AM [facility] 320 DO Work Phone: Start: 07-07-2023 Covid-19 Vaccine ( season) Covid-19 Vaccine ( season) [facility] Start: 07-07-2023 Influenza vaccination [facility] Start: 07-07-2023 Influenza vaccinatio n given INFLUENZA VACCINE (#1) [facility] Start: 06-05-[address] [facility] Start: 04-22-2023 BP CONTROLLED (<130/80) BP CONTROLLE D (<130/80) [facility] Start: 03-14-2023 BP CONTROLLED (<130/80) BP CONTROLLE D (<130/80) [facility] Start: 02-18-2023 BP CONTROLLED (<130/80) BP CONTROLLE D (<130/80) [facility] Start: 02-08-2023 BP CONTROLLED (<130/80) BP CONTROLLE D (<130/80) [facility] Start: 01-18-2023 BP CONTROLLED (<130/80) BP CONTROLLE D (<130/80) [facility] Start: 11-06-2022 DEPRESSION ASSESSMENT DEPRESSION ASS ESSMENT [facility] Start: 09-22-[address] [facility] Start: 08-02-2022 End: 08-25-2023 Ct abdomen & pelvis w/contrast material CT ABD/PEL W IVCON Radiology Routine Periumbilical abdominal pain Expected: 08/02/2022, Expires: 08/25/2023 [facility] Work Phone: Comment on above: Expected: 08/02/2022 , Expires: 08/25/2023 Start: 07-07-2022 Influenza vaccination [facility] Start: 06-28-2022 Mammography [facility] Start: 2022 Administration of varicella zoster vaccine Zoster (Shingles) Vaccine (1 of 2) [facility] Start: 2022 COVID-19 VACCINE (4 - Booster for Pfizer series) COVID-19 VACCINE (4 - Booster for Pfizer series) [facility] Start: 2022 SHINGRIX VACCINE (1 of 2) SHINGRIX VACCINE (1 of 2) [facility] Start: 2022 Zoster vaccine hzv l annika for subcutaneous use ZOSTER (SHINGLES) VACCINE (1 of 2) [facility] Start: 04-01-2022 End: 06-01-2022 CBC W Auto Differential panel - Blood CBC + DIFF Lab Routine Follow-up examination after colorectal surgery Expected: 04/01/2022, Expires: 06/01/2022 [facility] Work Phone: Comment on above: Expected: 04/01/2022 , Expires: 06/01/2022 Start: 04-01-2022 End: 06-01-2022 Comprehensive metabolic 2000 panel - Serum or Plasma COMP METABOLIC PANEL Lab Routine Follow-up examination after colorectal surgery Expected: 04/01/2022, Expires: 06/01/2022 [facility] Work Phone: Comment on above: Expected: 04/01/2022 , Expires: 06/01/2022 Start: 04-01-2022 End: 06-01-2022 TYPE AND SCREEN,30 DAY TYPE AND SCREEN,30 DAY Blood Bank Routine Follow-up examination after colorectal surgery Expected: 04/01/2022, Expires: 06/01/2022 [facility] Work Phone: Comment on above: Expected: 04/01/2022 , Expires: 06/01/2022 Start: 01-19-2022 COVID-19 VACCINE (4 - Booster for Pfizer series) COVID-19 VACCINE (4 - Booster for Pfizer series) [facility] Start: 01-19-2022 COVID-19 VACCINE (4 - Pfizer series) COVID-19 VACCINE (4 - Pfizer series) [facility] Start: 11-06-2021 DEPRESSION ASSESSMENT DEPRESSION ASS ESSMENT [facility] Start: 07-07-2021 Influenza vaccination INFLUENZA (#1) [facility] Start: 03-24-2021 Screening for malign ant neoplasm of colon COLORECTAL CANCER SCREENING DISCUSSION [facility] Start: 04-05-2020 Screening for malign ant neoplasm of breast MAMMOGRAM SCREENING DISCUSSION [facility] Start: 2017 COLOGUARD (FIT-DNA) COLOGUARD (FIT-D NA) [facility] Start: 2017 Colonoscopy COLONOSCOPY [facility] Start: 2017 COLORECTAL CANCER SCREENING COLORECTAL CANCER SCREENING [facility] Start: [address] COLONOGRAPHY [facility] Start: 2017 FECAL OCCULT BLOOD FECAL OCCULT BLOO D [facility] Start: 2017 LIPID SCREEN LIPID SCREEN [facility] Start: 2017 Screening for malign ant neoplasm of colon [facility] Start: 2017 SIGMOIDOSCOPY SIGMOIDOSCOPY [facility] Start: 2012 Lipid panel LIPID SCREENING [facility] Start: 2012 Mammography MAMMOGRAM [facility] Start: 10-11-2008 Hepatitis B vaccination HEP B VACCINE (3 of 3 - 19+ 3-dose series) [facility] Start: 10-11-2008 Hepatitis B Vaccine (3 of 3 - 19+ 3-dose series) Hepatitis B Vaccine (3 of 3 - 19+ 3-dose series) [facility] Start: 2002 HPV TESTING HPV TESTING [facility] Start: 2002 Screening for malign ant neoplasm of cervix HPV Testing [facility] Start: 1993 PAP TESTING PAP TESTING [facility] Start: 1993 Screening for malign ant neoplasm of cervix [facility] Start: 1991 Urine microalbumin profile [facility] Start: 1990 Adult BMI Follow Up Plan Adult BMI Follow Up Plan [facility] Start: 1990 ANNUAL PCP TEAM REVENUE SPECIALIST ALEKSANDAR DISEASE VISIT ANNUAL PCP TEAM CHRONIC DISEASE VISIT [facility] Start: 1990 ANNUAL WELLNESS VISIT ANNUAL WELLNES S VISIT [facility] Start: 1990 Anxiety Screening Anxiety Screening [facility] Start: 1990 BP CONTROLLED (<130/80) BP CONTROLLE D (<130/80) [facility] Start: 1990 Depression Screening Depression Scre ening [facility] Start: 1990 HEPATITIS C SCREENING HEPATITIS C [facility] Start: 1990 Hepatitis C screening Hepatitis C [facility] Start: 1990 HIV SCREENING HIV SCREENING [facility] Start: 1990 HIV screening HIV Screening [facility] Start: 1987 HIV screening HIV SCREENING DISCUSSION [facility] Start: 1984 Adult depression screening assessment DEPRESSION SCREENING [facility] Start: 1984 Depression screening using PHQ-9 (Patient Health Questionnaire 9) score DEPRESSION SCREENING [facility] Start: 1978 PNEUMOCOCCAL (1 - PCV) PNEUMOCOCCAL (1 - PCV) [facility] Start: 1978 Pneumococcal vaccination Pneum ococcal Vaccine (1 - PCV) [facility] Start: 1972 HEPATITIS B (1 of 3 - 3-dose series) HEPATITIS B (1 of 3 - 3-dose series) [facility] Start: 1972 Hepatitis B Vaccine (1 of 3 - 3-dose series) Hepatitis B Vaccine (1 of 3 - 3-dose series) [facility] Start: 1972 Hepatitis C screening HEPATITI S C VIRUS SCREENING [facility] Start: 1972 HPV/COTEST HPV/COTEST [facility] Start: 1972 Screening for malign ant neoplasm of cervix [facility] 12 lead ECG EKG 12 lead ECG REYNA 08/12/2023 12:28 AM EDT [facility] Work Phone: CT Abdomen and Pelvi s W contrast IV CT Abdomen / Pelvis With IV Contrast ONLY Imaging STAT 08/12/2023 5:42 AM [facility] End: 01-12-2024 EGD - THERAPEUTIC, EUS, OR TUBE INTERVENTIONS EGD - THERAPEUTIC, EUS, OR TUBE INTERVENTIONS Endoscopy Routine Gastroparesis 1 Occurrences starting 01/11/2023 until 01/12/2024 [facility] Work Phone: Comment on above: 1 Occurrences starti ng 01/11/2023 until 01/12/2024 FAT, FECAL QUAL FAT, FECAL QUAL Lab Routine Diarrhea due to malabsorption Ordered: 03/15/2023 [facility] Work Phone: Comment on above: Ordered: 03/15/2023 End: 10-11-2023 Gi transit & pres ravinder wireless capsule w/interp CAPSULE ENDOSCOPY SMART Endoscopy Routine Gastroparesis 1 Occurrences starting 10/11/2022 until 10/11/2023 [facility] Work Phone: Comment on above: 1 Occurrences starti ng 10/11/2022 until 10/11/2023 End: 12-17-2023 PAP TITRATION PSG (CPAP, BIPAP, ASV) PAP TITRATION PSG (CPAP, BIPAP, ASV) Procedures Routine CHUCKIE (obstructive sleep apnea) 1 Occurrences starting 11/17/2022 until 12/17/2023 [facility] Work Phone: Comment on above: 1 Occurrences starti ng 11/17/2022 until 12/17/2023 Patient Education Chest Pain, Adult ED [facility] Work Phone: Patient referral [facility] Work Phone: SARS-CoV-2 (COVID-19 ) RNA [Presence] in Respiratory specimen by JOSÉ MIGUEL with probe detection SELF CHECK COVID Microbiology Routine Follow-up examination after colorectal surgery Ordered: 02/09/2022 [facility] Work Phone: Comment on above: Ordered: 02/09/2022 End: 11-30-2023 SIGMOIDOSCOPY SIGMOIDOSCOPY Endoscopy Routine Chronic idiopathic constipation 1 Occurrences starting 11/30/2022 until 11/30/2023 [facility] Work Phone: Comment on above: 1 Occurrences starti ng 11/30/2022 until 11/30/2023 SURG PATH REQUEST [facility] Comment on above: Release Upon Orderin g for 1 Occurrences starting 04/12/2024, 1 completed End: 08-12-2023 Troponin I.cardiac [Mass/volume] in Serum or Plasma Troponin I (One time) Lab Timed Once for 1 Occurrences starting 08/12/2023 until 08/12/2023 [facility] Work Phone: Comment on above: Once for 1 Occurrenc es starting 08/12/2023 until 08/12/2023 URODYNAMICS WHI URODYNAMICS WHI Procedures Routine Incomplete bladder emptying Urinary urgency Urinary frequency Nocturia Ordered: 07/31/2023 [facility] Work Phone: Comment on above: Ordered: 07/31/2023 [facility] Immunizations Immunization Date Immunization Notes Care Provider Shante fang 04-05-2024 zoster vaccine, unspecified formulation Milagros Franco MD, PhD Work Phone: [facility] 12-21-2023 influenza virus vaccine, unspecified formulation Isra Masters DO Work Phone: [facility] 08-17-2022 influenza virus vaccine, unspecified formulation Nelsy Chávez APRN.METAL F[employer]RER Work Phone: [facility] 11-24-2021 Pfizer-BioNTech COVID-19 Vacc 30 MCG/0.3ML Intramuscular Suspension Eliceo Gómez Work Phone: [facility] 250 DO Work Phone: 08-19-2021 KENALOG - 10 mg Erica keys Other [facility] Other 05-11-2021 Pfizer-BioNTech COVID-19 Vacc 30 MCG/0.3ML Intramuscular Suspension Eliceo Gómez Work Phone: [facility] 250 DO Work Phone: 04-20-2021 Pfizer-BioNTech COVID-19 Vacc 30 MCG/0.3ML Intramuscular Suspension Eliceo Gómez Work Phone: [facility] 250 DO Work Phone: 09-02-2020 influenza, injectabl e, quadrivalent, preservative free Eliceo Gómez Work Phone: [facility] 250 DO Work Phone: 08-06-2020 influenza, injectabl e, quadrivalent, preservative free Eliceo Gómez Work Phone: [facility] [employer] DO Work Phone: 06-22-2020 tetanus toxoid, reduced diphtheria toxoid, and acellular pertussis vaccine, adsorbed Eliceo Gómez Work Phone: [facility] [employer] DO Work Phone: 02-01-2020 Toradol per 15 mg Beto Violet turpin Other [facility] Other 07-15-2018 influenza, seasonal, injectable, preservative free Eliceo Gómez Work Phone: [facility] [employer] DO Work Phone: 07-14-2016 Rocephin 500 mg Beto Reynoso r Other [facility] Other 05-12-2008 hepatitis B vaccine, adult dosage Eliceo Gómez Work Phone: [facility] [employer] DO Work Phone: 04-11-2008 hepatitis B vaccine, adult dosage Eliceo Gómez Work Phone: [facility] [employer] DO Work Phone: Payers Date Payer Category Payer Medicare [id number] 2024 Private Health Insurance 2023 Self-pay [id number] 2022 Unknown 2021 Medicaid [employer] [id number] 2021-Present [phone] [address] [place] [address] Medicaid [id number]. [id number] 2021 Medicaid [id number]. 1.13.159.2. [id number] 1972 Unknown [id number] 2.16.840.1.714949.3.579.2. 176 1972 Unknown [id number] 2.16.840.1.170483.3.579.2. 593 1972 Unknown [id number] 2.16.840.1.151481.3.579.2. 593 1972 Unknown [id number] 2.16.840.1.767659.3.579.2. 593 1972 Unknown [id number] 2.16.840.1.332715.3.579.2. 593 1972 Unknown [id number] 2.16.840.1.364680.3.579.2. 593 1972 Unknown [id number] 2.16.840.1.530830.3.579.2. 593 1972 Unknown [id number] 2.16.840.1.757243.3.579.2. 593 1972 Unknown [id number] 2.16.840.1.063192.3.579.2. 593 1972 Unknown [id number] 2.16.840.1.725180.3.579.2. 593 1972 Unknown [id number] 2.16.840.1.748359.3.579.2. 593 1972 Unknown [id number] 2.16.840.1.070665.3.579.2. 593 1972 Unknown [id number] 2.16.840.1.172514.3.579.2. 593 1972 Unknown [id number] 2.16.840.1.486299.3.579.2. 593 1972 Unknown [id number] 2.16.840.1.120303.3.579.2. 593 1972 Unknown [id number] 2.16.840.1.092333.3.579.2. 593 1972 Unknown [id number] 2.16.840.1.379839.3.579.2. 593 1972 Unknown [id number] 2.16.840.1.983217.3.579.2. 593 1972 Unknown [id number] 2.16.840.1.210243.3.579.2. 297 1972 Unknown [id number] 2.16.840.1.474062.3.579.2. 297 1972 Unknown [id number] 2.16.840.1.402050.3.579.2. 356 1972 Unknown [id number] 2.16.840.1.038959.3.579.2. 356 1972 Unknown [id number] 2.16.840.1.690827.3.579.2. 356 1972 Unknown [id number] 2.16.840.1.853494.3.579.2. 1286 1972 Unknown [id number] 2.16.840.1.738960.3.579.2. 1286 1972 Unknown [id number] 2.16.840.1.837342.3.579.2. 1286 1972 Unknown [id number] 2.16.840.1.452929.3.579.2. 128 1972 Unknown [id number] 2.16.840.1.726743.3.579.2. 1286 1972 Unknown [id number] 2.16.840.1.456628.3.579.2. 128 1972 Unknown [id number] 2.16.840.1.288224.3.579.2. 128 1972 Unknown [id number] 2.16.840.1.541712.3.579.2. 1286 1972 Unknown [id number] 2.16.840.1.299182.3.579.2. 594 1972 Unknown [id number] 2.16.840.1.869011.3.579.2. 594 1972 Unknown [id number] 2.16.840.1.267579.3.579.2. 594 1972 Unknown [id number] 2.16.840.1.985906.3.579.2. 594 1972 Unknown [id number] 2.16.840.1.130240.3.579.2. 594 1972 Unknown [id number] 2.16.840.1.467258.3.579.2. 196 1972 Unknown [id number] 2.16.840.1.233379.3.579.2. 196 1972 Unknown [id number] 2.16840.1.613888.3.579.2. 196 1972 Unknown [id number] 2.16840.1.594311.3.579.2. 196 1972 Unknown [id number] 2.16.840.1.271084.3.579.2. 196 1972 Unknown [id number] 2.16.840.1.746822.3.579.2. 196 1972 Unknown [id number] 2.16.840.1.715045.3.579.2. 196 1972 Unknown [id number] 2.16.840.1.078550.3.579.2. 196 1972 Unknown [id number] 2.16.840.1.689912.3.579.2. 196 1972 Unknown [id number] 2.16.840.1.355809.3.579.2. 196 1972 Unknown [id number] 2.16.840.1.958462.3.579.2. 196 1972 Unknown [id number] 2.16.840.1.793908.3.579.2. 196 1972 Unknown [id number] 2.16.840.1.557793.3.579.2. 1258 1972 Unknown [id number] 2.16.840.1.774431.3.579.2. 1258 1972 Unknown [id number] 2.16840.1.970342.3.579.2. 1258 1972 Unknown [id number] 2.16840.1.053073.3.579.2. 1258 1972 Unknown [id number] 2.16840.1.970058.3.579.2. 1258 1972 Unknown [id number] 2.840.1.067178.3.579.2. 1258 1972 Unknown [id number] 2.840.1.212627.3.579.2. 1258 1972 Unknown [id number] 2.840.1.919128.3.579.2. 1258 1972 Unknown [id number] 2.840.1.957174.3.579.2. 1258 1972 Unknown [id number] 2.16840.1.445358.3.579.2. 1258 1972 Unknown [id number] 2.16840.1.276479.3.579.2. 1258 1972 Unknown [id number] 2.16840.1.432334.3.579.2. 1258 1972 Unknown [id number] 2.16840.1.455666.3.579.2. 1258 1972 Unknown [id number] 2.16840.1.601603.3.579.2. 1258 1972 Unknown [id number] 2.16840.1.420427.3.579.2. 1258 1972 Unknown [id number] 2.16.840.1.335542.3.579.2. 1258 1972 Unknown [id number] 2.16.840.1.137329.3.579.2. 1258 1972 Unknown [id number] 2.16.840.1.430298.3.579.2. 1258 1972 Unknown [id number] 2.16.840.1.605485.3.579.2. 1258 1972 Unknown [id number] 2.16.840.1.899905.3.579.2. 1258 1972 Unknown [id number] 2.16.840.1.294847.3.579.2. 1258 1972 Unknown [id number] 2.16.840.1.619560.3.579.2. 1258 1972 Unknown [id number] 2.16.840.1.585207.3.579.2. 1258 1972 Unknown [id number] 2.16.840.1.595382.3.579.2. 1258 1972 Unknown [id number] 2.16.840.1.986784.3.579.2. 1258 1972 Unknown [id number] 2.16.840.1.307454.3.579.2. 1258 1972 Unknown [id number] 2.16.840.1.635942.3.579.2. 1258 1972 Unknown [id number] 2.16.840.1.023961.3.579.2. 9 1959 Medicaid [id number] 1959 Unknown [id number] Unknown [facility] [id number] Unknown [id number] Unknown [id number] Unknown [id number] Unknown [id number] Social History Date Type Detail Facility Start: 10-08-2020 End: 10-10-2023 Tobacco smoking status NHIS Never smoked tobacco [facility] Start: 10-08-2020 End: 10-10-2023 Tobacco use and exposure Smokeless tobacco non-user [facility] Start: 01-04-2022 End: 02-27-2024 Alcohol intake Lifetime non-drinker (finding) [facility] Start: 10-08-2020 History SDOH Alcohol Frequency 1 [facility] Start: 1970 Sex Assigned At Female [facility] Start: 01-21-2022 End: 07-26-2022 Exposure to SARS-CoV-2 (event) Not sure [facility] Start: 10-08-2020 End: 07-31-2023 Sex Assigned At [facility] Start: 10-08-2020 End: 07-31-2023 No alcohol use No alcohol use [facility] Comment on above: 3 TEA WEEK; How often to you hav e a drink containing alcohol? Never [facility] Average Number of Drinks Not on file [facility] Start: 07-28-2020 Gender identity Identifies as female gender (finding) [facility] Start: 07-03-2021 Sexual orientation Heterosexual (fin ding) [facility] Start: 06-05-2023 End: 06-05-2023 Tobacco smoking status NHIS Smoker (finding) [facility] Start: 1970 Sex Assigned At Not on file [facility] Start: 10-23-2023 End: 01-10-2024 Alcohol intake Ex-drinker (finding) [facility] Medical Equipment Procedure Code Equipment Code Equipment Original Text Equipment Identifier Dates Fibertak [place] Self-Punching Knotless 2.6mm W/No 5 Suture [id number] Start: 10-14-2020 Fibertak [place] Knotless 2.6mm [id number] Start: 10-14-2020 [place] Swivelock C 4.75mm Biocomposite Peek 19.1mm Suture Closed Eyelet - [id number] Start: 10-14-2020 Sling Gynecare T vt Exact Gynecological Stress Urinary Incontinence - [id number] Start: 12-24-2021 DISC CERVICAL 13 X15X5H MOBI-C FDA Start: 09-20-2017 DISC CERVICAL 13 X15X5H MOBI-C FDA Start: 09-20-2017 DISC CERVICAL 13 X15X5H MOBI-C FDA Start: 09-20-2017 DISC CERVICAL 13 X15X5H MOBI-C FDA Start: 09-20-2017 DISC CERVICAL 13 X15X5H MOBI-C FDA Start: 09-20-2017 Generator Nrstm - [id number] Start: 01-02-2024 Lead Ns Respirat ory - [id number] Start: 01-02-2024 Lead Nrstm Inspr 3 Elect Cuf Tnl Boni Strl Lf - [id number] - [id number] Start: 01-02-2024 Lead Intrstim Mr i 28cm - [id number] Start: 01-26-2024 Interstim X Rech arge Free Neurostimulator - [id number] Start: 01-26-2024 DISC CERVICAL 13 X15X5H MOBI-C FDA Start: 09-20-2017 DISC CERVICAL 13 X15X5H MOBI-C FDA Start: 09-20-2017 Clinical Notes 10-27-2020 to 06-12-2024 Telephone Encounter - Serenity Joseph MA - 06/12/2024 2:19 PM EDTTelephone Encounter - Serenity Joseph MA - 06/12/2024 2:19 PM EDTNursing Notes - Stacie Johns RN - 04/12/2024 12:45 PM EDT Note Date & Type Note Facility 06-12-2024 Telephone encounter Note LDH=11/30/22 MEREDITH=10/11/22 Patient will need a follow up appointment For future refills [facility] 06-12-2024 Miscellaneous Notes LDH=11/30/22 MEREDITH=10/11/22 Patient will need a follow up appointment For future refills documented in this encounter [facility] 04-28-2024 Note Quality of life Answer each question by shading in the [place] completely. Choose only one answer for each [...] 75 80 85 90 95 100 X [facility] 04-28-2024 Note Hitchins Sleepiness S gladis Please rate the following [...] There are no active Hospital Problems. no [facility] 04-17-2024 Note Attestation signed by Grant Biswas, PhD at 04/18/2024 10:57 AM I have read and agree with the sandstone inspector repairer's documentation and treatment summary. Please note there [...] (electronically signed on 04/17/2024 at 8:49 AM) [facility] 04-12-2024 Nurse Note Dilated LES to 20mm with balloon, held for [address] Franco [facility] 04-12-2024 Miscellaneous Notes Dilated LES to 20mm with balloon, held for [address] Franco Dilated pylorus to 20mm with balloon, held for [address] Franco. Sedation, vital signs, airway, and monitoring per anesthesia. documented in this encounter [facility] 04-12-2024 Nurse Note Dilated pylorus to 20mm with balloon, held for [address] Franco. [facility] 04-12-2024 History and physical note ENDOSCOPIC PREPROCEDURE HISTORY AND PHYSICAL HISTORY OF PRESENT ILLNESS: Mary Leal is a 53 y.o. female seen in the pre-procedure area at [facility]. The indication for endoscopic evaluation includes: Wheeler grade D esophagitis Early satiety Unintentional weight loss Gastroparesis PAST MEDICAL HISTORY: Past Medical History: Diagnosis Date Arthritis Asthma Constipation Depression Essential hypertension, benign Gastroparesis GERD (gastroesophageal reflux disease) H/O colectomy Migraine SURGICAL HISTORY: Past Surgical History: Procedure Laterality Date BLADDER SUSPENSION COLECTOMY HYSTERECTOMY MEDICATIONS: Current Outpatient Medications Medication Instructions Lolis Maintena 300 MG Prefilled Syringe IM injection [...] Monitored Anesthesia Care. Milagros Franco MD, PhD [facility] Work Phone: 04-12-2024 History and physical note ENDOSCOPIC PREPROCEDURE HISTORY AND PHYSICAL HISTORY OF PRESENT ILLNESS: Mary Leal is a 53 y.o. female seen in the pre-procedure area at [facility]. The indication for endoscopic evaluation includes: Wheeler grade D esophagitis Early satiety Unintentional weight [...] Franco MD, PhD documented in this encounter [facility] 04-12-2024 Nurse Note 1316- Family/laborer driver arrived to recovery bay. RN provided and reviewed discharge instructions to patient and daughter. Verbalized understanding. All questions answered. 1326- Patient ambulated off ASC unit independently with laborer driver. documented in this encounter [facility] 04-12-2024 Nurse Surgical operation note 1316- Family/laborer driver arrived to recovery bay. RN provided and reviewed discharge instructions to patient and daughter. Verbalized understanding. All questions answered. 1326- Patient ambulated off ASC unit independently with laborer driver. [facility] Nurse Note Sedation, vital signs, airway, and monitoring per anesthesia. [facility] 04-03-2024 Note Attestation signed by Pauline Christensen MD at 04/03/2024 4:16 PM I personally saw and examined the patient on the same date of service as resident/fellow Dr. Dumont. I discussed the findings and therapeutic plan with the resident/fellow . I agree with the documentation, except for any edits/updates below. Teaching Physician's Revisions: None Pauline Christensen MD. Time Stamp Assembler of Neurology and Sleep Medicine [facility] SLEEP/NEUROLOGY CLINIC FOLLOW-UP EVALUATION Date of [...] regarding sleep. She eventually was evaluated at [facility] with Dr. Sherman and had [...] referred her to (more content not included)... [facility] 03-14-2024 Telephone encounter Note 02/27/24 OV [...] Rx has been sent. Jacquelin Lowery RN [facility] 03-14-2024 Miscellaneous Notes 02/27/24 OV with [...] Jacquelin Lowery RN documented in this encounter [facility] 02-27-2024 Note HNO ID: [id number] Author: FLOWER LOPEZ APRN.METAL FURRER Service: ? Author Type: Nurse Practitioner Type: [...] intermittently- somewhat improved. She has worked with [employer] rep re: interstim setting, now on program [...] you received about pain medications helpful? Yes Dirt Bike Racer offered:Patient declines OBJECTIVE: BP 146/93 Pulse 62 [...] 5 ml via bladder scan done by SERAFIN URINE POC GLUCOSE UA (POCT) Negative 02/27/2024 [...] 65% improvement s/p (more content not included)... [facility] 02-27-2024 History of Present illness Narrative Female [...] intermittently- somewhat improved. She has worked with [employer] rep re: interstim setting, now on program [...] you received about pain medications helpful? Yes Dirt Bike Racer offered:Patient declines OBJECTIVE: BP 146/93 Pulse 62 [...] Flower Lopez APRN.CNP documented in this encounter [facility] 02-20-2024 Miscellaneous Notes Pt sent mc [...] 2024 7:32 AM documented in this encounter [facility] 02-11-2024 Note HNO ID: [id number] Author: LISSA DOYLE APRN.CNP Service: ? Author Type: Nurse Practitioner Type: Progress Notes Filed: 02/11/2024 15:16 Note Text: Visit cancelled. Patient checked into express care online system for My ongoing yeast infection. I've tried 3 Diflucan. . Connected to visit, advised PCP or local Express/Urgent Care in person evaluation. Patient verbalized understanding and comfortable with plan. Nontoxic appearance. Lissa Doyle APRN.CNP [facility] 02-11-2024 History of Present illness Narrative Visit cancelled. Patient checked into express care online system for My ongoing yeast infection. I've tried 3 Diflucan. . Connected to visit, advised PCP or local Express/Urgent Care in person evaluation. Patient verbalized understanding and comfortable with plan. Nontoxic appearance. Lissa Doyle APRN.KWESI documented in this encounter [facility] 02-07-2024 Note SLEEP/NEUROLOGY CLIN IC FOLLOW-UP [...] a second opinion from sleep medicine at [facility], and saw Dr. Yoni Tuttle on [...] regarding sleep. She eventually was evaluated at [facility] sleep [facility] with Dr. Sherman and had [...] like to av (more content not included)... [facility] 01-27-2024 Miscellaneous Notes Shank Cutter Resident Telephone Encounter 01/27/2024 10:44 AM Call [...] Discussed with Dr. Mullins, Urogyn fellow physician clerk television production. Radha Dunham MD Obstetrics and Gynecology, PGY1 documented in this encounter [facility] 01-25-2024 History and physical note PREANESTHESIA CONSULT CLINIC TELEHEALTH VISIT SERVICE DATE: 01/25/2024 SERVICE TIME: 9:02 AM Patient has been identified by name and date of : Yes Reason for contact: PACC visit Accompanied by: Self This is a virtual visit using [employer] Video Visit. It required patient-provider interaction for the medical decision making as documented below. I have communicated my name and active licensure. The patient's identity and physical location were verified at the time of this visit. Either the patient or their legal sales representative education courses has been informed of the risks and [...] using inspire to get activated 02/07/2024 ) [id number] Score: Age: <65 Sex: female CHF history: No Hypertension history: Yes Stroke/TIA/thromboembolism history: No Vascular disease history: No Diabetes history: No [id number] Score: 2 ANESTHESIA FINDINGS: Intubation History: No [...] the AM and 2 mg PM Yes bxmcgqppwpc-vkfqjrcqp-hpggvqsz (TRELEGY ELLIPTA) 100-62.5-25 mcg Inhale 1 Puff [...] fevers. Neuro: No history of TIA's, stroke, SKETCH LINER tumor, impaired sensorium, hemiplegia, paraplegia or quadraplegia. No neurological symptoms or problems. Respiratory: CHUCKIE and asthma Negative for Bronchitis, COPD, Pneumonia within 6 weeks (date), URI < 2 weeks Negative for cough, wheezing or shortness of breath. Negative for hemoptysis. Cardiovascular: HTN Negative for Recent [place], CAD, CHF Negative for chest pain, orthopnea, [...] TIME: 9:02 AM documented in this encounter [facility] 01-23-2024 Instructions Max Marroquin PA-C - 01/23/2024 3:50 PM EDT PATIENT PREOPERATIVE INSTRUCTIONS Pam Wang MD has scheduled you for your procedure at this surgery center: [facility] [place] Scheduling Office: [phone] --[address] [place], [place] [id number]. Arrival Time for Surgery: - To obtain your arrival time for surgery, call your physician's office the day before your surgery. - If your surgery is scheduled for Monday, call the Monday before. Your surgeon s scheduler maintenance will tell you what time to call the office. - If you have not reached the departmental scheduler maintenance by 5 P.M., call [phone] after 5 P.M. the day before your [...] Procedures: - YOU MUST HAVE A RESPONSIBLE API ARCHITECT TAKE YOU HOME. A PYROGLAZER OR DIRECTOR STAGE CANNOT BE MADE A RESPONSIBLE API ARCHITECT. - We recommend that a responsible person stays with you overnight to take care of you. - You cannot stay in a hotel alone after outpatient surgery. You will not be permitted to have your surgery, if you do not have someone to take care of you. If you already have an Advance Directive, please fax a copy to [phone] or email to for it to be [...] Max Marroquin PA-C documented in this encounter [facility] 01-22-2024 Note HNO ID: [id number] Author: LEV THOMPSON LPN Service: ? Author Type: LICENSED NURSE Type: Progress Notes Filed: 01/25/2024 09:48 Note Text: DATE OF SERVICE: 01/25/2024 PROBLEM: Mary Leal presents for pre-op teaching. PRE-OP DIAGNOSIS: urinary urgency SCHEDULED SURGERY AND DATE: 01-26-24 [facility] INSRT NSTIM GENERATOR BLADDER W/ POCKET [...] patient have an advanced directive: No Does [facility] have a copy of the patient's [...] prescribed by anesthesia, internal medicine, surgeon, or DISINTEGRATOR Stop NSAIDs, Aspirin (ASA), vitamins, herbal supplements, [...] jewelry, body piercing, makeup, contacts, lotions, nail nicaraguan on fingers, or anything in hair on arrival to surgery Wear low healed shoes and loose fitting clothing Leave all valuables at home or with a family member Directions to [facility] Parking/parking validation on the day prior [...] if after hours patient instructed to call contact acid plant operator and ask for clerk television production assembler insulator resident. DENISA program offered to patient: Yes [...] None Educator: Lev Thompson LPN [facility] 01-22-2024 History of Present illness Narrative DATE OF SERVICE: 01/25/2024 PROBLEM: Mary Leal presents for pre-op teaching. PRE-OP DIAGNOSIS: urinary urgency SCHEDULED SURGERY AND DATE: 01-26-24 [facility] INSRT NSTIM GENERATOR BLADDER W/ POCKET [...] patient have an advanced directive: No Does [facility] have a copy of the patient's [...] prescribed by anesthesia, internal medicine, surgeon, or DISINTEGRATOR Stop NSAIDs, Aspirin (ASA), vitamins, herbal supplements, [...] jewelry, body piercing, makeup, contacts, lotions, nail nicaraguan on fingers, or anything in hair on arrival to surgery Wear low healed shoes and loose fitting clothing Leave all valuables at home or with a family member Directions to [facility] Parking/parking validation on the day prior [...] if after hours patient instructed to call contact acid plant operator and ask for clerk television production assembler insulator resident. DENISA program offered to patient: Yes [...] None Educator: Lev Thompson LPN [facility] [place] documented in this encounter [facility] 01-22-2024 Instructions Lev Thompson LPN - 01/22/2024 11:22 AM EDT UROGYNECOLOGY PHYSICIAN CONTACT INFORMATION During business hours, these numbers connect to your doctor s office. During the evening and weekends, these numbers will connect you to the answering service to speak with the doctor clerk television production. Dr. Pam Wang After hours phone number: or toll free Ask the contact acid plant operator to page the 'assembler insulator clerk television production.' Surgery Scheduling Office: Call the day before [...] vitamin E, herbal medications, diet pills, and okli-ivc-ydveavq medications. Tylenol (acetaminophen) is okay. I will not wear jewelry, body piercing(s), makeup, nail nicaraguan, hairpins, or contacts on the day of [...] my surgeon. Discuss medication changes with your accounts payable technician or primary care physician as well. If I stopped taking my blood-thinning medication, I will ask the surgeon when to resume taking it. If I am an outpatient, a responsible person will drive me home and it was suggested that someone stay with me for 24 hours. I understand that a sap business objects developer or cabdriver is NOT a responsible caregiver. [...] for surgery, I must call my surgical appliances salesperson after 2pm the day before surgery. PREOP INSTRUCTIONS THE DAY OF SURGERY/CHECK IN Report to DESK J1-9 for surgery. A map is located in Your Surgical Guide Book. The online version of the surgical guide book can be found at: [email or web address] The address is [address] [place] [address]/[place] [address] INFECTION PREVENTION Please notify your doctor if [...] Your Surgical Guide Book for more information. [facility] TEAM At the [facility], we have a multidisciplinary team of caregivers that includes fellows, residents, nurse practitioners, physician assistants, clinical nurse specialists, nurses, medical assistants, patient care nursing assistants, social workers, piano case maker and many others. We all have different [...] for post-surgery concerns. documented in this encounter [facility] 01-10-2024 History of Present illness Narrative [facility] - [facility] [address] [place] [address], [address] [place] [id number] SUBJECTIVE: Patient ID (1970): Mary Leal is [...] Performed by Noman Mayo MD at [facility] EGD, DILATATION N/A 09/25/2020 Performed by Noman Mayo MD at [facility] ENDOSCOPIC DIAGNOSTIC DRUG INDUCED SLEEP Bilateral 09/19/2023 Performed by Cullen Dawkins MD at [facility] FOOT SURGERY 06/25/2020 left foot surgery FOOT SURGERY Right 10/2022 and 05/2023 HYSTERECTOMY 2015 LASER LINGUAL TONISILLECTOMY Circumferential 07/08/2021 Performed by Alexei Avila MD PhD at [facility] MRI FOOT LEFT NECK SURGERY 2017 PLANTAR FASCIECTOMY RELEASE PHARYNGEAL SCAR CPT 87847 Circumferential 07/08/2021 Performed by Alexei Avila MD PhD at [facility] RESECTION SUBMUCOSAL NASAL Bilateral 02/11/2021 Performed by Alexei Avila MD PhD at [facility] ROTATOR CUFF REPAIR Right SEPTOPLASTY Circumferential 02/11/2021 Performed by Alexei Avila MD PhD at [facility] TONSILLECTOMY Bilateral 02/11/2021 Performed by Alexei Avila MD PhD at [facility] TOTAL COLECTOMY 03/2022 uvuloplasty N/A 02/11/2021 Performed by Alexei Avila MD PhD at [facility] Family History Problem Relation Age of Onset [...] in the morning. Indications: gastroesophageal reflux disease. xgbkdwdspwm-odndulgnf-lgxycplj (TRELEGY ELLIPTA) 100-62.5-25 mcg blister with device [...] mg 2.5 mg nebulization PRN Gwendolyn Stroud APRN-METAL FURRER REVIEW OF SYSTEMS: Review of Systems Data [...] to ensure the accuracy of this automated bursar, some errors in bursar may have occurred. Iam Siddiqi 01/10/24 0753 documented in this encounter [facility] 01-10-2024 Instructions Cullen Dawkins MD - 01/10/2024 [...] test result within 7 days, please call [phone] to leave a request for your results. [...] Ultrasound, MRI or PET scan, please call [employer] Central Scheduling at [phone]. If you need to be scheduled for surgery, please call Aiden Augustin Surgery Coordinator at [phone], or Lazara at [phone] or our main number [phone] if you have not received a return [...] (and medications that contain aspirin): Many non-prescription (hurf-ujg-vudjeva or OTC) medications contain aspirin. If you are unsure whether a medication you take has aspirin, please ask your pharmacist or your surgeon's office. You must ask your surgical team if they want you to continue taking, or stop taking aspirin before your procedure. Medications containing aspirin that should be stopped 7 days before surgery: [place] Anacin Aspirin Fiorinal Ascriptin Carlos Bufferin Lortab [...] L-carnosine Licorice Kava kava Milk thistle Multivitamin [place]-3 Resveratrol Skullcap Michael's wort Vitamin E Adipex (phentermine) Glenn (orlistat) Hydroxycut Garcinia Cambogia Raspberry Ketones Vniduijh-E-15 should be stopped 14 days before surgery You will receive specific instructions regarding your insulin and anti-coagulant/anti-platelet medications (if applicable). documented in this encounter [facility] 12-27-2023 Miscellaneous Notes PATIENT NOTIFIED WITH SURGERY TIME OF 11:00. TOLD TO ARRIVE 2 HOURS PRIOR. documented in this encounter [facility] 12-27-2023 Telephone encounter Note PATIENT NOTIFIED WITH SURGERY TIME OF 11:00. TOLD TO ARRIVE 2 HOURS PRIOR. [facility] 12-25-2023 Miscellaneous Notes See MC message A [...] distance health visit in this department: 10/25/2021 Supervisor Transferring And Boxing, Nurse Next visit in this department: 01/25/2024 documented in this encounter [facility] 12-20-2023 History and physical note PRE-ADMISSION TESTING HISTORY AND PHYSICAL EXAM DATE: 12/20/23 PCP: ELICEO GÓMEZ JR, DO CHIEF COMPLAINT: CHUCKIE (obstructive sleep apnea) HISTORY OF PRESENT ILLNESS: Mary Leal, a 53 y.o. White or female, presents to [facility] for a pre-surgical H&P for a [...] Performed by Noman Mayo MD at [facility] EGD, DILATATION N/A 09/25/2020 Performed by Noman Mayo MD at [facility] ENDOSCOPIC DIAGNOSTIC DRUG INDUCED SLEEP Bilateral 09/19/2023 Performed by Cullen Dawkins MD at [facility] FOOT SURGERY 06/25/2020 left foot surgery FOOT SURGERY Right 10/2022 and 05/2023 HYSTERECTOMY 2015 LASER LINGUAL TONISILLECTOMY Circumferential 07/08/2021 Performed by Alexei Avila MD PhD at [facility] MRI FOOT LEFT NECK SURGERY 2017 PLANTAR FASCIECTOMY RELEASE PHARYNGEAL SCAR CPT 25854 Circumferential 07/08/2021 Performed by Alexei Avila MD PhD at [facility] RESECTION SUBMUCOSAL NASAL Bilateral 02/11/2021 Performed by Alexei Avila MD PhD at [facility] ROTATOR CUFF REPAIR Right SEPTOPLASTY Circumferential 02/11/2021 Performed by Alexei Avila MD PhD at [facility] TONSILLECTOMY Bilateral 02/11/2021 Performed by Alexei Avila MD PhD at [facility] TOTAL COLECTOMY 03/2022 uvuloplasty N/A 02/11/2021 Performed by Alexei Avila MD PhD at [facility] FAMILY HISTORY: Family History Problem Relation Age [...] Indications: gastroesophageal reflux disease., Disp: , Rfl: dbpudhhzdjn-cdopxxaqw-cfvuberu (TRELEGY ELLIPTA) 100-62.5-25 mcg blister with device, [...] mg, 2.5 mg, nebulization, PRN, Gwendolyn Stroud, GRADUATE INTERNSHIP-METAL FURRER REVIEW OF SYSTEMS: Review of Systems Constitutional: [...] the most recent lab values available in [facility] at the time of the office visit and additional labs may have been drawn since that time. ASSESSMENT / DIAGNOSIS: CHUCKIE (obstructive sleep apnea) PLAN: Mary Ludmila Leal is scheduled for Insertion Stimulator Nerve Hypoglossal - Right with Dr. Dawkins on 01/02/2024. STELLA Duron 12/20/23 1240 [facility] 12-20-2023 History and physical note PRE-ADMISSION TESTING HISTORY AND PHYSICAL EXAM DATE: 12/20/23 PCP: ELICEO GÓMEZ JR, DO CHIEF COMPLAINT: CHUCKIE (obstructive sleep apnea) HISTORY OF PRESENT ILLNESS: Mary Leal, a 53 y.o. White or female, presents to [facility] for a pre-surgical H&P for a [...] Performed by Noman Mayo MD at [facility] EGD, DILATATION N/A 09/25/2020 Performed by Noman Mayo MD at [facility] ENDOSCOPY ENDOSCOPIC DIAGNOSTIC DRUG INDUCED SLEEP Bilateral 09/19/2023 Performed by Cullen Dawkins MD at [facility] FOOT SURGERY 06/25/2020 left foot surgery FOOT SURGERY Right 10/2022 and 05/2023 HYSTERECTOMY 2015 LASER LINGUAL TONISILLECTOMY Circumferential 07/08/2021 Performed by Alexei Avila MD PhD at [facility] MRI FOOT LEFT NECK SURGERY 2017 PLANTAR FASCIECTOMY RELEASE PHARYNGEAL SCAR CPT 02788 Circumferential 07/08/2021 Performed by Alexei Avila MD PhD at [facility] RESECTION SUBMUCOSAL NASAL Bilateral 02/11/2021 Performed by Alexei Avila MD PhD at [facility] ROTATOR CUFF REPAIR Right SEPTOPLASTY Circumferential 02/11/2021 Performed by Alexei Avila MD PhD at [facility] TONSILLECTOMY Bilateral 02/11/2021 Performed by Alexei Avila MD PhD at [facility] TOTAL COLECTOMY 03/2022 uvuloplasty N/A 02/11/2021 Performed by Alexei Avila MD PhD at [facility] FAMILY HISTORY: Family History Problem Relation Age [...] Indications: gastroesophageal reflux disease., Disp: , Rfl: udvepeqljot-naldnembx-snqviuqx (TRELEGY ELLIPTA) 100-62.5-25 mcg blister with device, [...] mg, 2.5 mg, nebulization, PRN, Gwendolyn Stroud, GRADUATE INTERNSHIP-METAL FURRER REVIEW OF SYSTEMS: Review of Systems Constitutional: [...] the most recent lab values available in [facility] at the time of the office visit and additional labs may have been drawn since that time. ASSESSMENT / DIAGNOSIS: CHUCKIE (obstructive sleep apnea) PLAN: Mary Ludmila Leal is scheduled for Insertion Stimulator Nerve Hypoglossal - Right with Dr. Dawkins on 01/02/2024. STELLA Duron 12/20/23 1240 documented in this encounter 2sms 12-20-2023 Instructions Earlene Whalen RN - 12/20/2023 11:45 AM EST Your surgery/procedure is scheduled at [facility] on 01/02/2024 Arrival Time Surgeon will call [facility] Address: [address] [place] [address], [id number] Park in the Emergency Center Parking lot. Report to the front end java developer in the Emergency/Surgery Registration lobby of the hospital. Please call Pre-Admission Clinic at [phone] if you have any questions prior to surgery. For questions the morning of surgery, please call the Pre-op Department at [phone]. Notify your SURGEON if you develop any [...] would like to schedule therapy at a [facility] facility, please call [phone] ([phone]). Do not use lotions, creams, powders, perfume, make up, cologne or after-shaves day of surgery. Remove ALL jewelry including wedding rings, body piercings, hair extensions that contain metal, nail nicaraguan, make-up, and contact lens. You may brush your teeth the morning of surgery, but do not swallow the water. Wear your dentures and partial plates to the hospital (no adhesive). Shower the night the before. If applicable, use the CHG (chlorhexidine gluconate) soap or wipes. Please be advised, [place] has transitioned to a cashless payment system. [...] RIGHTS AND RESPONSIBILITIES As a patient at [facility], you have the right to: Receive medical care and be informed of who is taking care of you Be treated with dignity and respect Have a family member/sales representative education courses of choice and your physician notified of your admission Receive information and actively participate in decisions about your care and treatment Refuse care, treatment and services Decide who may provide your support and speak for you Access sikhism and spiritual services Participate in ethical issues [...] of hospital charges and payment methods Patient/patient sales representative education courses responsibilities are to: Provide information about health [...] in clean clothes. documented in this encounter 2sms 11-21-2023 Note HNO ID: [id number] Author: PAM WANG MD Service: ? Author [...] personal performance and is accurate and complete. [facility] 11-08-2023 Miscellaneous Notes MARSHA PENDING WITH TEJADA [id number] documented in this encounter [facility] 11-08-2023 Telephone encounter Note MARSHA PENDING WITH TEJADA [id number] [facility] 10-12-2023 Note Patient emailed stat ing she is finding another provider and will no longer be seen at this clinic. [facility] 10-12-2023 Note HNO ID: [id number] Author: Pam Wang MD Service: ? Author [...] Video-assisted cystourethroscopy was performed using a 19 Syriac 70 and 30 degree rigid cystoscope with [...] urethra PLAN: See progress note from today [facility] 10-10-2023 Note HNO ID: [id number] Author: Pam Wang MD Service: ? Author [...] PFSH obtained by others. Pam Wang MD Dirt Bike Racer offered: Patient declines. OBJECTIVE: BP 102/60 General: [...] which included preparing to see the patient, aiol-tw-cobr patient care, completing clinical documentation, obtaining and/or reviewing separately obtained history, performing a medically appropriate examination, counseling and educating the patient/family/caregiver, and communicating with other HCP (more content not included)... [facility] 10-02-2023 Miscellaneous Notes Patient was called to find out if there was another pharmacy to send her medication for Diflucan. Patient stated to disregard this medication. Patient stated that she does not need this medication now and that she will be visiting her PCP tomorrow (10/03/23) to address her sickness that she had before going to [place]. She states that she was going to [...] 150 MG TABLET MEREDITH: 09/27/2023 Doris Arias APRN.[facility] ([facility]) ASSESSMENT: Mary Leal is a [...] Dr. Pam Wang documented in this encounter [facility] 09-27-2023 Note HNO ID: [id number] Author: Doris Arias APRN.METAL FURRER Service: ? Author Type: Nurse Practitioner Type: [...] ache and some malodorous urine. Patient in [place], unable to come in for visit. Has [...] urination is normal and pressure with urinating APPLIED PSYCHOLOGY TEACHER: denies abnormal vaginal bleeding, no vaginal discharge PHYSICAL EXAMINATION: VIDEO EXAM: (if completed, performed via video enabled technology) GENERAL: alert and appropriate, in no distress, well-hydrated, well nourished, and happy, smiling, interactive ASSESSMENT: Mayr Leal is a 53 year old female [...] Making Level: 3 - Low Doris Arias APRN.KWESI [facility] 09-27-2023 Miscellaneous Notes Scheduled 10/10/23 [...] which included preparing to see the patient, iwtm-yo-yuwv patient care, completing clinical documentation, obtaining and/or [...] Office will call to schedule cystoscopy. Urogynecology [facility] Main provided: Pam Wang Staff Physician, Department of Urogynecology and Pelvic Floor Disorders Worsening frequency and urgency of urination. Is a urine culture indicated? Please review/advise Lex Vieyra RN documented in this encounter [facility] 09-19-2023 Note Patient states she m istook this medication and has been off for 7 days. Restarting it at the 25mg dose. [facility] 09-11-2023 Note HNO ID: [id number] Author: Jairon Lai MD Service: ? Author Type: Physician Type: Progress Notes Filed: 09/11/2023 1:18 PM Note Text: [facility] [...] to void lower flow Jairon Lai MD [facility] 09-11-2023 Note HNO ID: [id number] Author: Phil Beckford MD Service: ? Author [...] from sling incision +/- discussion of SNM [facility] 09-01-2023 Note Spoke with patient. Canceling valium script. Increasing ativan dose to bid with current bottle for mgmt of anxiety. Appoitment on Saturday 09/08 - she will bring in ativan to count tablets. She states she has 20 left as of today. She should have 4 left at that appointment. [facility] 09-01-2023 Note Mary has been hav [...] disponing Ativan at pharmacy in order to roll picker 1 weeks worth of Valium 5mg bid #16, to get her to her next appointment on 09/08. [facility] 08-23-2023 Note Psych Progress Note Time In: 925 Time Out: 940 HPI Present at Visit: Mary, provider, DISINTEGRATOR student Location of Service: Office Review of Systems Constitutional: Negative. Respiratory: Negative. Cardiovascular: Negative. Psychiatric/Behavioral: dysphoric mood, irritability, insomnia Date of Telehealth Visit: 08/23/23 Chief Complaint Patient presents with Telehealth Audio/video Visit [email or web address] The patient was notified that using 3rd libertarian telecommunication application (e.g., [employer]) is not HIPPA compliant and may carry some privacy risks. Yes The visit was conducted fzxo-hv-ufkq with the use of audio and video technology [employer] between patient and provider for a virtual [...] Wear CPAP/ Insp (more content not included)... [facility] 08-21-2023 Note Est [facility] 08-12-2023 Emergency department Note Discharge, follow up, referral, and prescription information reviewed and explained; all questions and concerns addressed. Patient A/Ox3 in NAD, resp. easy unlabored upon discharge, escorted to exit by staff. [facility] 08-12-2023 Emergency department Note Discharge, follow [...] gastroparesis, gastroenteritis, acute cholecystitis, pancreatitis, less likely WA The patient's initial and delta troponin are negative. EKG does not demonstrate any ischemic changes. Low suspicion for WA. Her urinalysis is negative for UTI. Urine [...] follow-up. She was instructed to call her wildlife forensic geneticist and PCP to schedule follow-up appointments. She was instructed to return to the emergency department if she has any new or worsening symptoms. Patient agreeable plan of care. Return precautions discussed at bedside. Spoke with Dr. Salmon regarding patient. Physician to complete their own physical exam and evaluation. Collaboration performed between this BOOK SEWER and physician regarding patient's plan of care. [...] following orders were created for panel order [place] Draw. Procedure Abnormality Status --------- ------ Gold Top[[id number]] Final result LIGHT BLUE TOP[[id number]] Final result Dark Green Top[[id number]] Final result Please view results for these [...] PWD. NAD noted. documented in this encounter [facility] 08-12-2023 Hospital Discharge instructions Lev Ritter [...] cannot be sent through Care Everywhere.Abdominal Pain (Burmese Algerian)documented in this encounter [facility] 08-12-2023 Emergency department Note Report to Les GAMBINO [facility] 08-12-2023 Physician Emergency department Note Images [...] gastroparesis, gastroenteritis, acute cholecystitis, pancreatitis, less likely WA The patient's initial and delta troponin are negative. EKG does not demonstrate any ischemic changes. Low suspicion for WA. Her urinalysis is negative for UTI. Urine [...] follow-up. She was instructed to call her wildlife forensic geneticist and PCP to schedule follow-up appointments. She was instructed to return to the emergency department if she has any new or worsening symptoms. Patient agreeable plan of care. Return precautions discussed at bedside. Spoke with Dr. Salmon regarding patient. Physician to complete their own physical exam and evaluation. Collaboration performed between this BOOK SEWER and physician regarding patient's plan of care. [...] following orders were created for panel order [place] Draw. Procedure Abnormality Status --------- ------ Gold Top[[id number]] Final result LIGHT BLUE TOP[[id number]] Final result Dark Green Top[[id number]] Final result Please view results for these tests on the individual orders. GOLD TOP LIGHT BLUE TOP DARK GREEN TOP TROPONIN I Records reviewed: Urogynecology telemedicine visit 08/07/2023 ENT visit 07/11/2023 Family medicine visit 07/06/2023 Lev Ritter APRN CNP 08/12/23722 [facility] 08-12-2023 Emergency department Note Emily at bedside [facility] 08-12-2023 Emergency department Triage note Ambulates to triage with C/O sudden epigastric gnawing, burning pain that woke her from sleep. Also reports wheezing. States nausea. Denies fever. Alert. Respirations easy and unlabored. Skin PWD. NAD noted. [facility] 08-07-2023 Note HNO ID: [id number] Author: Pam Wang MD Service: ? Author [...] no Pain: no Abnormal 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 She has no history of an abnormal mammogram with cysts on US LMP: No LMP recorded. Patient has had a hysterectomy.; Menopause 3 years ago; hysterectomy in 2015: Menstrual history: NA; Deliveries: I have confirmed and edited as necessary, the PFSH obtained by others. Pam Wang MD Dirt Bike Racer offered: Patient declines. OBJECTIVE (Virtual) There were [...] which included preparing to see the patient, moun-be-wdko patient care, completing clinical documentation, obtaining and/or reviewing separately obtained history, counseling and educating the patient/family/caregiver, ordering medications, tests, or procedures, and communicating with other HCPs (not separately reported). Pam Wang MD [facility] 07-31-2023 Note HNO ID: [id number] Author: Nelsy Chávez APRN.METAL FURRER Service: ? Author Type: Nurse Practitioner Type: [...] new Pain: no Abnormal 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 She has no history of an abnormal mammogram with cysts on US LMP: No LMP recorded. Patient has had a hysterectomy.; Menopause 3 years ago; hysterectomy in 2014: Menstrual history: NA; Deliveries: I have confirmed and edited as necessary, the PFSH obtained by others. Nelsy Chávez APRN.METAL FURRER Dirt Bike Racer offered: Patient declines. OBJECTIVE: There were no [...] which included preparing to see the patient, tpuz-ix-tqik patient care, completing clinical documentation, performing a medically appropriate examination, counseling and educating the patient/family/caregiver and ordering medications, tests, or procedures. [facility] 07-31-2023 History of Present illness [...] new Pain: no Abnormal 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 She has no history of an abnormal mammogram with cysts on US LMP: No LMP recorded. Patient has had a hysterectomy.; Menopause 3 years ago; hysterectomy in 2014: Menstrual history: NA; Deliveries: I have confirmed and edited as necessary, the PFSH obtained by others. Nelsy Chávez APRN.KWESI Dirt Bike Racer offered: Patient declines. OBJECTIVE: There were no [...] which included preparing to see the patient, rkfp-qh-gijo patient care, completing clinical documentation, performing a medically appropriate examination, counseling and educating the patient/family/caregiver and ordering medications, tests, or procedures. documented in this encounter [facility] 04-26-2023 Evaluation note Encounter Date Diagnosis [...] Above note written by Wanda Yang LPN, Light Truck Driver. Edited and approved by Dr. Beto Snyder MD. [facility] Other 06-06-2023 Miscellaneous Notes* Telephone Encounter - Serenity Joseph MA - 04/11/2023 10:19 AM EDT MEREDITH=10/11/22 Spoke with patient she does need a refill Medication pended please file Rx request if appropriate Patient and pharmacy verified documented in this encounterAs[facility] Miscellaneous Notes* Telephone Encounter - Regina Philippe - 03/20/2023 2:50 PM EDT Should patient follow up via virtual visit to discuss further? * Telephone Encounter - Steffi Ross LPN - 03/20/2023 10:20 AM EDT Patient's stool tests came back normal. Steffi Ross LPN documented in this encounterAshtabula [facility]04-18-2023 NotePROCEDURE: XR ANKLE RT MIN 3 [...] Electronically authenticated by: ZAIDA ACOSTA Date: 2023-02-21 10:15[facility]04-18-2023 NotePROCEDURE: XR ANKLE RT MIN 3 [...] Electronically authenticated by: ZAIDA ACOSTA Date: 2023-02-21 10:15[facility]03-28-2023 NotePROCEDURE: XR FOOT RT MIN 3 VIEWS [...] Electronically authenticated by: ZAIDA ACOSTA Date: 2023-01-31 11:55[facility]03-16-2023 Miscellaneous Notes* Telephone Encounter - Jennie Moreno RN - 01/19/2023 2:17 PM EDT Please review and advise patient. documented in this encounterAshtabula [facility] Hospital03-13-2023 Miscellaneous Notes* Telephone Encounter - Mounika Roberto PA-C - 01/16/2023 1:08 PM EDT Patient was scheduled for virtual PACC appt at 1300 today. Patient did not check in for visit. Called patient at [phone] to see if they needed any assistance logging in and left voicemail. This message routed to PACC schedulers to contact patient to reschedule PACC appt. Mounika Roberto PA-C January 16, 2023 1:09 PM documented in this encounterAshtabula [facility] Hospital03-[facility]-2023 History and physical note * Mounika Roberto PA-C - 01/16/2023 1:00 PM EDT This is a virtual visit using FAB BAG video visit. It required patient-provider interaction for themedical decision making as documented below. I have communicated my name and active licensure. The patient's identity and physical location wereverified at the time of this visit. Either the patient or their legal sales representative education courses has been informed of the risks and benefits of and alternatives to treatment through a remote evaluation and consents to proceed with the evaluation remotely. Surgeon: Winston Hannah DO Type of surgery: GEN SURG: POP Patient scheduled for surgery on 02/08/23 . Surgery Location: [facility] Diagnosis: Preop examination (primary encounter diagnosis) [...] in the AM and 4 mg PM tjqxckrcitq-ggihzlffp-tgdwchxx (TRELEGY ELLIPTA) 100-62.5-25 mcg Inhale 1 Puff [...] 16, 2023 12:36 PM documented in this encounterAshtabula [facility] Hospital03-13-[facility]23 Instructions* Patient Instructions* Mounika Roberto PA-C - 01/16/2023 12:38 PM EDT PATIENT PREOPERATIVE INSTRUCTIONS Winston Hannah DO has scheduled you for your procedure at this surgery center: [facility]: [phone] -- [place] [address]. Please read below carefully for your personalized [...] Procedures: - YOU MUST HAVE A RESPONSIBLE API ARCHITECT TAKE YOU HOME. A PYROGLAZER OR DIRECTOR STAGE CANNOT BE MADE A RESPONSIBLE API ARCHITECT. - We recommend that a responsible person [...] Advance Directive, please fax a copy to [phone] or email to for it to be [...] day. Mounika Roberto PA-C documented in this encounterAshtabula [facility] Hospital03-08-2023 Miscellaneous Notes* Telephone Encounter - Berta Ann RN - 01/11/2023 9:47 AM EST Procedure pended for 02/08/23. Pt aware of need for PACC. Pre-op instructions reviewed, will send to pt's [facility], per pt request. Postop appt scheduled. No other questions at this time. Berta HENSON, RN Specialty [employer] documented in this encounterAshtabula [facility] Hospital03-07-2023 History of Present illness Narrative* Winston Keys Brielle, DO - 01/10/2023 9:09 AM EST Images from the original note were not included. [facility] [place] Gastroparesis/Dysmotility Follow Up This encounter was provided via two-way, live video teleconferencing within the guidelines of [facility] rules for new and established patients. The [...] of care. NAME: Mary Leal CLINIC NO: [id number] CHIEF COMPLAINT Idiopathic Gastroparesis HISTORY OF PRESENT [...] Normal gastric transit Normal small bowel transit [id number] transit in the distal bowel consistent delay [...] (FLONASE) 50 mcg/actuation nasal spray Use 1 [place] in each nostril once daily. carBAMazepine XR [...] THE LUNGS every 4 hours if needed xhpqhlamrkv-gjtmjegif-dqreyerl (TRELEGY ELLIPTA) 100-62.5-25 mcg Inhale 1 Puff [...] dialysis. No history of symptoms or problems. APPLIED PSYCHOLOGY TEACHER: Negative for abnormal vaginal bleeding, abnormal vaginal [...] and plan of care. documented in this encounterAshtabula [facility] Hospital02-23-2023 Miscellaneous Notes* Addendum Note - Yoni Tuttle MD - 12/29/2022 3:37 PM ESTAddended by: YONI TUTTLE MD on: 12/29/2022 03:37 PM Modules accepted: Orders documented in this encounterAshtabula [facility] Hospital02-20-2023 History of Present illness Narrative* RT [...] 26, 2022 3:17 PM documented in this encounterAshtabula [facility] Hospital02-17-2023 Miscellaneous Notes* Telephone Encounter - Erica Serrano RN - 12/23/2022 4:36 PM EST Message being addressed in another encounter that was forwarded to provider documented in this encounterAshtabula [facility] Hospital02-16-2023 History of Present illness Narrative* Winston Hannah DO - 12/22/2022 8:52 AM EST Images from the original note were not included. [facility] [place] Gastroparesis/Dysmotility Follow Up This encounter was provided [...] completed esophagram NAME: Mary Leal CLINIC NO: [id number] CHIEF COMPLAINT Idiopathic Gastroparesis HISTORY OF PRESENT [...] chicken spaghetti etc. Duration of symptoms (months): 3480-0738 Weight changes in last 3 months: Stable [...] Normal gastric transit Normal small bowel transit [id number] transit in the distal bowel consistent delay [...] (FLONASE) 50 mcg/actuation nasal spray Use 1 [place] in each nostril once daily. carBAMazepine XR [...] THE LUNGS every 4 hours if needed pncmkupxxfm-hkcjmxwag-wllceybo (TRELEGY ELLIPTA) 100-62.5-25 mcg Inhale 1 Puff [...] dialysis. No history of symptoms or problems. APPLIED PSYCHOLOGY TEACHER: Negative for abnormal vaginal bleeding, abnormal vaginal [...] and plan of care. documented in this encounterAshtabula [facility] Hospital02-15-2023 NotePROCEDURE: XR FOOT RT MIN 3 [...] Electronically authenticated by: ZAIDA ACOSTA Date: 2022-12-21 12:24[facility]02-09-2023 History of Present illness Narrative* Mary [...] in the AM and 4 mg PM twgqotjegpx-xrlpoidts-vqasngna (TRELEGY ELLIPTA) 100-62.5-25 mcg Inhale 1 Puff [...] which included preparing to see the patient, arli-qz-dnhe patient care, completing clinical documentation, obtaining and/or reviewing separately obtained history, counseling and educating the patient/family/caregiver, ordering medications, quincy ts, or procedures, communicating with other HCPs (not separately reported), independently interpreting results (not separately reported), communicating results to the patient/family/caregiver, and care coordination (not separately reported). Mary Obrien MD Colorectal Surgery documented in this encounterAshtabula [facility] Hospital02-08-2023 Miscellaneous Notes* Telephone Encounter - Emily Benton RN - 12/14/2022 5:19 PM EST Several attempts to reach pt unsuccessful - MC sent. * Telephone Encounter - Barber Marie - 12/02/2022 8:39 AM EST SLEEP PHONE Name of caller: Mary Leal Relationship to patient : Self In-state or hnd-zo-ulfwa patient: In-State Was permission obtained from patient? Yes Patient identified by Name and Date of . ( Mary Leal, 1970). Yes Reason for Call : Patient said her and Emily was chatting through my chart and Emily calledher about 5:15 yesterday. Number to return call [phone] Okay to leave a message ? Yes Last office visit 10/14/[address] Kusum vines Next office visit 01/13/[address] Tuttle virtual documented in this encounterAs[facility]abula [facility]02-06-2023 Miscellaneous Notes* Telephone Encounter - Jet [...] and follow up testing return call to [phone] documented in this encounterAshtabula [facility] Hospital02-03-2023 Miscellaneous Notes* Telephone Encounter - MALAIKA [...] patient Summary: As noted Concerns: Procedure results [employer] plan for next outreach: Will follow up Signature Nelsy Gilmore RN December 08, 2022 documented in this encounterAshtabula General Hospital01-30-2023 Nurse Note* Lisa Contreras RN - 12/05/2022 1:05 PM EST [facility] ENDOSCOPY PRE PROCEDURE CALL Akiko. I'm calling from [facility] endoscopy to provide you with the information for your surgery/procedure tomorrow. 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 tbd What is the best number for your laborer driver to be reached at tomorrow for updates? tbd Your laborer driver is allowed to wait here with [...] instructed not bring any valuables, jewelry, or lyman and wear comfortable clothing. Do not wear makeup, lotion, or finger nicaraguan. yes Patient instructed: Please bring a list [...] given Any barriers to Patient learning (confusion? 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 If patient needs to reschedule please call: [phone] [facility] phone number: [phone] Type of instruction given: Verbal by telephone contact. documented in this encounterAshtabula General Hospital01-27-2023 Nurse Note* Isra Harman RN - 12/02/2022 10:48 AM EST [facility] ENDOSCOPY PRE PROCEDURE CALL Akiko. I'm calling from [facility] to provide you with the information for your surgery/procedure tomorrow. Spoke to: Patient CONFIRM Procedure Planned with patient: Are you familiar with where [facility] is located?yes Address [address] [facility] Patient instructed to enter through the main hospital entrance off [address] at [address] through the revolving doors and check in at the main desk with your laborer driver's license and insurance card.yes When anesthesia or sedation is being given: Patient instructed you must have an adult laborer driver because you will not be able to work or drive for the rest of the day after your test.yes Can you please confirm the name and relationship of your laborer driver. Rich What is the best number for your laborer driver to be reached at tomorrow for updates? [phone] Your laborer driver is allowed to wait here with [...] must be done on Monday.) Did you roll picker your bowel prep pt calling office [...] instructed not bring any valuables, jewelry, or lyman and wear comfortable clothing. Do not wear makeup, lotion, or finger nicaraguan. yes Patient instructed: Please bring a list [...] given Any barriers to Patient learning (confusion? 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 If patient needs to reschedule please call: [phone] [facility] phone number: [phone] Type of instruction given: Verbal by telephone contact. documented in this encounterAshtabula General Hospital01-26-2023 NotePROCEDURE: XR FOOT RT MIN 3 [...] change in alignment. Electronically authenticated by: ZAIDA Muhammad: 2022-12-01 11:42[facility]01-26-2023 NotePROCEDURE: XR FOOT RT MIN 3 [...] Electronically authenticated by: ZAIDA ACOSTA Date: 2022-12-01 11:42[facility]01-25-2023 History of Present illness Narrative* Isra Masters, [...] in the AM and 4 mg PM evmwnkhsgtq-xojqyxfje-piuzkxgn (TRELEGY ELLIPTA) 100-62.5-25 mcg Inhale 1 Puff [...] no edema RESPIRATORY: No dyspnea : neg APPLIED PSYCHOLOGY TEACHER: neg The remainder of the review of [...] Isra Masters DO 11/30/2022 documented in this encounterAshtabula General Hospital01-19-2023 Miscellaneous Notes* Telephone Encounter - Erica Serrano RN - 11/24/2022 3:20 PM EST This concern was addressed in the phone encounter on 11/24/22. Patient was called back and informed [facility] will complete Prior Authorization for her sleep study. documented in this encounterAshtabula General Hospital01-19-2023 Miscellaneous Notes* Telephone Encounter - Erica [...] Relationship to patient : Self In-state or jvt-ys-annzq patient: In-State Was permission obtained from patient? Yes Patient identified by Name and Date of . ( Mary Leal, 1970). Yes Reason for Call : Patient stated she spoke to her insurance and they told her that the provider need to call Deuce to see if a PA is needed for the PAP Titration. Number to return call [phone] Okay to leave a message ? Yes Last office visit 10/14/[address] Tuttle virtual Next office visit None documented in this encounterAshtabula General Hospital01-19-2023 History of Present illness Narrative* Isra Masters DO - 11/24/2022 8:29 AM EST Images from the original note were not included. Q.MEPill Test Report - [id number] Test start date: 11/17/2022 10:03 AM Dry Cleaner Hand: josephine Interpretation date: 11/24/2022 Ordering physician: Isra Masters DO Referring physician: Patient Information Name: Mary Leal. ID: [id number] date: 1970 Height ft. in.: 5' 4 [...] Normal gastric transit Normal small bowel transit [id number] transit in the distal bowel consistent delay post anastomosis Signature _Dr. Masters Date _11/24/2022 documented in this encounterAshtabula General Hospital01-17-2023 Miscellaneous Notes* Telephone Encounter - Regina Philippe - 11/22/2022 3:37 PM EST Patient calling to verify that Smart Pill monitor was received at [facility]. Monitor was sent via [employer] on 11/19/22. Patient is requesting a confirmation. documented in this encounterAshtabula General Hospital01-16-2023 Miscellaneous Notes* Telephone Encounter - Erica Serrano RN - 11/21/2022 9:11 AM EST FAB BAG message sent to patient. Prior Sleep study forwarded to MD to review, Order pended for PAP-titration for provider to review and sign if necessary. documented in this encounterAshtabula General Hospital01-16-2023 History and physical note * Yodit Back PA-C - 11/21/2022 8:00 AM EST PREANESTHESIA CONSULT CLINIC TELEHEALTH VISIT Patient has been identified by name and date of : Yes This is a virtual visit using FAB BAG video visit. It require patient-provider interaction for [...] in the AM and 4 mg PM tzkcikzpugm-ltxixlgwf-irijbbma (TRELEGY ELLIPTA) 100-62.5-25 mcg Inhale 1 Puff as instructed once daily. No current facility-administered medications for this visit. COVID VACCINATION STATUS: Fully vaccinated REVIEW OF SYSTEMS: Pain Assessment: General: No weight loss, malaise or fevers. Neuro: No history of TIA's, stroke, SKETCH LINER tumor, impaired sensorium, hemiplegia, paraplegia or quadraplegia. [...] requiring medication, no history of angina, CHF, [place], cardiac surgery or stents. Denies rest pain, gangrene or revascularization/amputation for PVD. No history of cardiovascular symptoms or problems. + HLD GI: See HPI : No history of dysuria, frequency or incontinence,, stones or chronic kidney disease APPLIED PSYCHOLOGY TEACHER: Negative for abnormal vaginal bleeding, abnormal vaginal [...] 8:07 AM PAGER/CONTACT #: documented in this encounterAshtabula General Hospital01-12-2023 Miscellaneous Notes* Addendum Note - Yoni Tuttle MD - 11/17/2022 3:16 PM ESTAddended by: YONI TUTTLE MD on: 11/17/2022 03:16 PM Modules accepted: Orders * Telephone Encounter - Yoni Tuttle MD - 11/17/2022 3:11 PM EST 09/22/22[facility] ([facility] AHI by 3% [...] - 11/02/2022 12:33 PM EST Received from [facility] Report via fax. 8 pages indexed to chart. documented in this encounterAshtabula General Hospital01-12-2023 History of Present illness Narrative* Annmarie [...] complete. You will be wearing a Data Painter Helper Sign around your neck like a necklace during the test. You must keepthis near you at all times. The Data Painter Helper Sign has an EVENT button. You will be [...] is inside your body. Return the Data Painter Helper Sign to the [facility] after your test is completed. Brittanie Gillespie RN documented in this encounterAshtabula General Hospital01-09-2023 NotePROCEDURE: XR FOOT RT MIN 3 [...] Electronically authenticated by: ZAIDA ACOSTA Date: 2022-11-14 10:39[facility]01-05-2023 NotePROCEDURE: XR FOOT RT MIN 3 [...] Electronically authenticated by: NICKI DACOSTA Date: 2022-11-10 11:44[facility]01-05-2023 Miscellaneous Notes* Telephone Encounter - Annmarie Gillespie RN - 11/10/2022 9:07 AM EST Telephoned patient with SmartPill procedure appointment reminder/instructions. Brittanie Gillespie RN documented in this encounterAshtabula General Hospital01-04-2023 Miscellaneous Notes* Telephone Encounter - Regina [...] on hold on 01/03 at 1030 - [facility] to make it legit. documented in this encounterAshtabula General Hospital01-04-2023 Miscellaneous Notes* Telephone Encounter - Wali Doll - 11/09/2022 9:47 AM EST SENT PATIENTS RX TO PREFERRED LOCATION [facility] [phone] Wali Doll ACCOUNTS PAYABLE ACCOUNTANT documented in this encounterAshtabula General Hospital01-03-2023 Miscellaneous Notes* Telephone Encounter - Regina Philippe - 11/08/2022 11:15 AM EST Per Soumya in provider services at [facility]. No prior auth is needed,coverage is active, patient can proceed with Smart Pill. Placed a new referral. Call Ref # [id number] * Telephone Encounter - Regina Philippe - 11/02/2022 3:51 PM EST Spoke with patient. Smart Pill is a covered benefit. Sent email to Smart Pill scheduler maintenance and [facility] to assist in scheduling Smart Pill [...] procedure, she can call Earlene Martin at [phone]. documented in this encounterAshtabula General Hospital12-19-2022 Miscellaneous Notes* Telephone Encounter - Steffi [...] calling: self Call patient at: at home [phone] (home) [phone] (cell) Closing statement: Symptom Call: Thank you for calling [facility], your call is very important. A nurse will call in approximately 2-4 hours during business hours. If this is an emergency, please contact 911. Nati Martinez documented in this encounterAshtabula General Hospital12-13-2022 Miscellaneous Notes* Telephone Encounter - Brooklyn Valle LPN - 10/18/2022 2:43 PM EST Requested Prescriptions Pending Prescriptions Disp Refills Dexlansoprazole 60 mg CpDM [Pharmacy Med Name: DEXLANSOPRAZOLE DR 60 MG CAP] 30 capsule 5 Sig: take 1 capsule by mouth before breakfast Patient last seen 10/11/2022 documented in this encounterAshtabula General Hospital12-12-2022 NotePROCEDURE: XR FOOT RT MIN 3 [...] Electronically authenticated by: NICKI DACOSTA Date: 2022-10-17 18:06[facility]12-12-2022 NotePROCEDURE: XR FOOT RT MIN 3 [...] Electronically authenticated by: NICKI DACOSTA Date: 2022-10-17 18:06[facility]12-12-2022 Miscellaneous Notes* Telephone Encounter - Wali Doll - 10/17/2022 9:17 AM EST Faxed order, office notes, demographics, and sleep study to: DME name: [facility] fax: [phone] DME ph: ALSO SENT A REQUEST FOR PTS PSG FROM [facility] [place] documented in this encounterAshtabula General Hospital12-06-2022 History of Present illness Narrative* Isra [...] (FLONASE) 50 mcg/actuation nasal spray Use 1 [place] in each nostril once daily. carBAMazepine XR (TEGRETOL XR) 400 mg 12 hr tablet Take 400 mg by mouth q 12 HR. ARIPiprazole (ABILIFY) 30 mg tablet Take 30 mg by mouth once daily. albuterol HFA (PROVENTIL HFA, VENTOLIN HFA) 90 mcg/actuation inhaler inhale 2 puffs by mouth INTO THE LUNGS every 4 hours if needed wjpattxilxi-mwcmuzglj-ukgxxrto (TRELEGY ELLIPTA) 100-62.5-25 mcg Inhale 1 Puff [...] no edema RESPIRATORY: No dyspnea : neg APPLIED PSYCHOLOGY TEACHER: neg The remainder of the review of [...] Isra Masters DO 10/11/2022 documented in this encounterAshtabula General Hospital12-05-2022 Evaluation note* Encounter Date Diagnosis Assessment [...] for rotator cuff healing or recurrent tear [facility] Other 12-01-2022 Evaluation note* Encounter Date Diagnosis [...] note writ ten by Wanda Yang LPN, Light Truck Driver. Edited and approved by Dr. Beto Snyder MD. [facility] Other 11-17-2022 Evaluation note* Encounter Date Diagnosis [...] educated regarding the risks and benefits of manager intermediate opioid use. She understands the associated risks [...] note writ ten by Lupillo Amezquita MA, Light Truck Driver. Edited and approved by Dr. Beto Snyder MD. [facility] Other 11-17-2022 Evaluation note* Encounter Date Diagnosis Assessment Notes Treatment Notes Treatment Clinical Notes Sep, Lumbosacral spondylosis without myelopathy (ICD-10 - M47.817) [facility] Other 11-09-2022 Evaluation note* Encounter Date Diagnosis [...] note writ ten by Wanda Yang LPN, Light Truck Driver. Edited and approved by Dr. Beto Snyder MD. [facility] Other 09-21-2022 NotePROCEDURE: XR ANKLE RT MIN 3 VIEWS, XR FOOT RT MIN 3 VIEWS COMPARISON: 01/06/2021 HISTORY: Pain of right ankle joint FINDINGS: BONES:Remote osteotomy head of the first metatarsal fixed with a single screw. No acute fracture or dislocation. SOFT TISSUES:Negative. No visible soft tissue swelling. EFFUSION:None visible. OTHER: Negative. IMPRESSION: No acute abnormality Electronically authenticated by: NICKI DACOSTA Date: 2022-07-27 19:[address] [place], [place] [address]360[address]-21-2022 NotePROCEDURE: XR ANKLE RT MIN 3 VIEWS, XR FOOT RT MIN 3 VIEWS COMPARISON: 01/06/2021 HISTORY: Pain of right ankle joint FINDINGS: BONES:Remote osteotomy head of the first metatarsal fixed with a single screw. No acute fracture or dislocation. SOFT TISSUES:Negative. No visible soft tissue swelling. EFFUSION:None visible. OTHER: Negative. IMPRESSION: No acute abnormality Electronically authenticated by: NICKI DACOSTA Date: 2022-07-27 19:[address] [place], [place] 0360309-20-2022 Miscellaneous Notes* Telephone Encounter - Silvia Gillilanddavide - 07/26/2022 2:56 PM EDT PA for Dexlansoprazole initiated electronically. Awaiting response [facility] ID# [id number] * Telephone Encounter - Tracy Khan PSS - 07/26/2022 1:43 PM EDT Patient needs a prior authorization Medication Order name: Dexlansoprazole 60 mg CpDM Medication: DEXLANSOPRAZOLE 60 MG CAPSULE,BIPHASE DELAYED RELEASE [[id number]] Dispense as Written: No documented in this encounterAshtabula General Hospital09-20-2022 History of Present illness Narrative* Mary [...] in the AM and 4 mg PM snarkhvrxqg-qjlxsqeng-xejtppcl (TRELEGY ELLIPTA) 100-62.5-25 mcg Inhale 1 Puff [...] (FLONASE) 50 mcg/actuation nasal spray Use 1 [place] in each nostril once daily. carBAMazepine XR [...] which included preparing to see the patient, dang-pz-hykq patient care, completing clinical documentation, obtaining and/or reviewing separately obtained history, performing a medically appropriate examination, counseling and educating the pat ient/family/caregiver, ordering medications, tests, or procedures, and care coordination (not separately reported). Mary Obrien MD Colorectal Surgery documented in this encounterAshtabula General Hospital09-20-2022 Nurse Note* Re Sierra MA - 07/26/2022 11:12 AM EDT What is the reason for your visit today? Established patient presents for post op. Who is your referring physician? Are you having poor oral intake? NO Have you had unintentional weight loss of 15 lbs/7 Kg in the last 3-6 months? NO Bowels: Wound: none Temperature: No Drains: No documented in this encounterAshtabula General Hospital08-04-2022 NotePROCEDURE: In the coronal projection, without [...] and signed by Quinton Carson on 06/09/[address] [place], [place] 0720508-02-2022 Miscellaneous Notes* Telephone Encounter - Raquel Mullen - 06/07/2022 3:34 PM EDT Patient needs RX sent to [facility] in [facility]. The [...] process accordingly. Raquel Mullen documented in this encounterAshtabula General Hospital07-21-2022 Evaluation note* Encounter Date Diagnosis Assessment [...] note writ ten by Lupillo Amezquita MA, Light Truck Driver. Edited and approved by Dr. Beto Snyder MD. [facility] Other 07-05-2022 Evaluation note* Encounter Date Diagnosis [...] in writing by [facility] document. [facility] Other [id number] Miscellaneous Notes* Telephone Encounter - Jet Wong [...] concerns at this time. documented in this encounterAshtabula General Hospital06-21-2022 Miscellaneous Notes* Telephone Encounter - Jet [...] questions or concerns. * Telephone Encounter - Rauqel Mullen - 04/26/2022 8:16 AM EDT Patient would like to know if she can go swimming after her procedure on 03/28. Thanks! documented in this encounterAshtabula General Hospital06-17-2022 History of Present illness Narrative* Jessi Sheets APRN.METAL FURRER - 04/22/2022 12:20 PM EDT COLORECTAL SURGERY [...] TONSILLECTOMY HX 07/2021 revision VAGINAL HYSTERECTOMY 2014 [facility] 10/2015 for endometriosis, has remaining both [...] (FLONASE) 50 mcg/actuation nasal spray Use 1 [place] in each nostril once daily. carBAMazepine XR [...] THE LUNGS every 4 hours if needed ezjbkfvzkqh-louuwtsru-gaaxxgol (TRELEGY ELLIPTA) 100-62.5-25 mcg Inhale 1 Puff [...] complications of treatment plan: low Jessi Sheets APRN.METAL FURRER Colorectal Surgery documented in this encounterAshtabula General Hospital06-17-2022 Nurse Note* Mary Mena MA - 04/22/2022 12:06 PM EDT .What is the reason for your visit today? Post op Who is your referring physician? Self Are you having poor oral intake? NO Have you had unintentional weight loss of 15 lbs/7 Kg in the last 3-6 months? NO Bowels: regular Wound: none Temperature: No Drains: No documented in this encounterAshtabula General Hospital06-02-2022 Miscellaneous Notes* Telephone Encounter - Rachael - 04/07/2022 12:35 AM EDT Record ID: [id number] Patient name: Mary Leal Date: [birth year] [...] likely is it that you would recommend [facility] to a friend or family member? -> likely Please tell me what you liked best about your hospital experience: -> The nurses documented in this encounterAshtabula General Hospital05-31-2022 NoteHNO ID: [id number] Author: Pravin Ladd MD Service: Colorectal Author Type: Resident Type: Progress Notes Filed: 04/05/2022 7:52 AM Note Text: COLORECTAL SURGERY PROGRESS NOTE Mary Leal [id number] ASSESSMENT AND PLAN Mary Leal is a [...] - General Pravin Ladd MD General Surgery residentWestwood Lodge HospitalAoegawzy50-61-7421 NoteHNO ID: [id number] Author: Nita Lamas MD Service: Colorectal Author Type: Fellow Type: Progress Notes Filed: 04/04/2022 9:40 AM Note Text: COLORECTAL SURGERY PROGRESS NOTE Mary Leal [id number] ASSESSMENT AND PLAN Mary Leal is a [...] Nita Lamas MD Colorectal Fellow 04/04/2022 9:40 [facility]05-29-2022 NoteHNO ID: [id number] Author: Pravin Ladd MD Service: Colorectal Author Type: Resident Type: Progress Notes Filed: 04/03/2022 8:03 AM Note Text: COLORECTAL SURGERY PROGRESS NOTE Mary Leal [id number] ASSESSMENT AND PLAN Mary Leal is a [...] - General Pravin Ladd MD General Surgery ResidentWestwood Lodge HospitalZiodmovo02-86-1198 NoteHNO ID: [id number] Author: Nancy Cadena MD Service: Colorectal Author Type: Resident Type: Progress Notes Filed: 04/02/2022 8:34 AM Note Text: COLORECTAL SURGERY PROGRESS NOTE Mary Keys Elvis [id number] ASSESSMENT AND PLAN Mary Leal is a [...] Nancy Cadena MD General Surgery Resident, PGY-2 [id number] [id number] NoteHNO ID: [id number] Author: Nancy Cadena MD Service: Colorectal Author Type: Resident Type: Progress Notes Filed: 04/01/2022 7:15 AM Note Text: Attestation signed by Mary Obrien MD at 04/01/2022 7:21 PM [facility] STAFF PHYSICIAN NOTE OF [...] 2022 COLORECTAL SURGERY PROGRESS NOTE Mary Leal [id number] ASSESSMENT AND PLAN Mary Ludmila Leal is [...] Nancy Cadena MD General Surgery Resident, PGY-2 [id number] [id number] NoteHNO ID: [id number] Author: Yolanda Lamb MD Service: Colorectal Author Type: Resident Type: Progress Notes Filed: 03/31/2022 9:08 AM Note Text: COLORECTAL SURGERY PROGRESS NOTE Mary Leal [id number] ASSESSMENT AND PLAN Mary Leal is a [...] RESECTION AND ANASTOMOSIS - General Yolanda Lamb MDWestwood Lodge HospitalEallsfah64-16-6672 NoteHNO ID: [id number] Author: Pravin Ladd MD Service: Colorectal Author Type: Resident Type: Progress Notes Filed: 03/30/2022 9:02 AM Note Text: Attestation signed by Mary Obrien MD at 03/30/2022 4:01 PM [facility] STAFF PHYSICIAN NOTE OF [...] 2022 COLORECTAL SURGERY PROGRESS NOTE Mary Leal [id number] ASSESSMENT AND PLAN Mary Leal is a 51 year old female with PMHx Asthma, HTN, BPD, Dyslipidemia and colonic inertia who is now s/p Hand assisted TAC, EI takedown + OANH 03/28 - D/C DANCE THERAPIST - Advance to GI soft diet - [...] W/ RESECTION AND ANASTOMOSIS - General Pravin aLdd MDWestwood Lodge HospitalLsemazru44-59-0021 NoteHNO ID: [id number] Author: ELIZABETH Dias Service: Care Management Author Type: Director Energy Type: Care Mgt Initial Assessment Filed: 03/29/2022 [...] time ADVANCE DIRECTIVES Current Advance Directive: None Mural 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 Attempted to Assist with AD Completion: Yes [...] Housing Stability: Not on file 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 Stated Goals: To be cured/healed Under the [...] March 29, 2022 TIME: 3:45 PM PHONE: [phone] [id number] NoteHNO ID: [id number] Author: Pravin Ladd MD Service: Colorectal Author Type: Resident Type: Progress Notes Filed: 04/01/2022 5:50 AM Note Text: COLORECTAL SURGERY PROGRESS NOTE Mary Leal [id number] ASSESSMENT AND PLAN Mary Leal is a 51 year old female with PMHx Asthma, HTN, BPD, Dyslipidemia and colonic inertia who is now s/p Hand assisted TAC, EI takedown + OANH 03/28 - DANCE THERAPIST for pain control - Magnesium replacement for [...] RESECTION AND ANASTOMOSIS - General Pravin Ladd MDWestwood Lodge HospitalApzecgsd65-82-1524 NoteHNO ID: [id number] Author: Nathanael Craig DO Service: Anesthesiology Author Type: Anesthesiologist Type: Anesthesia Procedure Notes Filed: 03/28/2022 4:16 PM Note Text: ANESTHESIOLOGY PROCEDURE NOTE Peripheral Nerve Block General Information Procedure Start Time/Medication Administration: 03/28/2022 3:50 PM Procedure End time: 03/28/2022 3:55 PM Patient location during procedure: OR Timeout Performed Pre-procedure: timeout performed Consent Obtained: Yes 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: care presentation team member and arm band Reason for [...] 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 and care presentation team member Reason for block: post-op pain [...] March 28, 2022 TIME: 4:14 PM CSN: [id number] [id number] NoteHNO ID: [id number] Author: Carmen Stanley APRN.VENETIAN BLIND WORKER Service: Anesthesiology Author Type: Nurse Production Solderer Type: Anesthesia Procedure Notes Filed: 03/28/2022 9:49 AM Note Text: ANESTHESIOLOGY PROCEDURE NOTE Airway General Information Procedure Start Time/Medication Administration: 03/28/2022 9:21 AM Patient location during procedure: OR 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, care presentation team member and patient Staffing VENETIAN BLIND WORKER: Carmen Stanley APRN.VENETIAN BLIND WORKER Performed by: VENETIAN BLIND WORKER Indications and Patient Condition Preoxygenated: yes Difficult [...] March 28, 2022 TIME: 9:49 AM CSN: [id number] [id number] NoteHNO ID: [id number] Author: Carmen Stanley APRN.CRNA Service: Anesthesiology Author Type: Nurse Production Solderer Type: Anesthesia Procedure Notes Filed: 03/28/2022 9:49 [...] Imaging Guidance Used: No SIGNATURE: Carmen Stanley APRN.VENETIAN BLIND WORKER PATIENT NAME: Mary Leal DATE: March 28, 2022 TIME: 9:48 AM CSN: [id number] Miscellaneous Notes* Telephone Encounter - Jet Wong [...] this time. * Telephone Encounter - Raquel Sebas - 03/22/2022 10:20 AM EDT Patient called in because she has been feeling some pressure around the colon. Would like a call back at [phone] documented in this encounterAshtabula [facility] Hospital05-10-2022 Miscellaneous Notes* Telephone Encounter - Jennie Moreno RN - 03/15/2022 2:39 PM EDT Outside medical record EGD H Pylori biopsy received by fax. Scanned into [facility] under scanned documents. Hard copy handed to Dr. Masters. Per Dr Masters- please call patient and let her know the H Pylori biopsy is negative. Called patient . Message relayed. No questions at this time. * Telephone Encounter - Karthikeyan Turk RN - 03/15/2022 2:21 PM EDT Called [facility] and I was transferred to medical records. Requesting a cover sheet with the request result be faxed to them at [phone]. H Pylori result request faxed with confirmation. * Telephone Encounter - Karthikeyan Turk RN - 03/15/2022 2:21 PM EDT Images from the original note were not included. DO Leo Mariano Sp Ddsi Clinical Pool Please contact [facility] [phone] to see if the H pylori biopsy is back yet from her EGD there documented in this encounterAshtabula General Hospital05-10-2022 Evaluation note* Encounter Date Diagnosis Assessment [...] note writ ten by Wanda Yang LPN, Light Truck Driver. Edited and approved by Dr. Beto Snyder MD. [facility] Other 05-10-2022 Miscellaneous Notes* Telephone Encounter - Silvia Ybarra - 03/15/2022 1:24 PM EDT PA for Dexilant renewal initiated through [facility]. Awaiting response ID# [id number] Rx BIN [id number] Rx PCN MCAIDOH Rx Grp [id number] documented in this encounterAshtabula General Hospital05-10-2022 Miscellaneous Notes* Telephone Encounter - Jet Wong RN - 03/15/2022 9:28 AM EDT She called the office with complaints of dark red blood in her ostomy bag for the last 2 weeks. Shewas down in [place] when it started. She had an EGD in [place] that showed gastritis. She followed up with [...] concerns at this time. documented in this encounterAshtabula General Hospital05-10-2022 History of Present illness Narrative* Isra [...] seem be musculoskeletal in nature.EGD done in [facility] showed some gastritis and duodenitis. Current Outpatient [...] (FLONASE) 50 mcg/actuation nasal spray Use 1 [place] in each nostril once daily. carBAMazepine XR [...] THE LUNGS every 4 hours if needed dmnrafmegla-swblthfuz-wfsodoas (TRELEGY ELLIPTA) 100-62.5-25 mcg Inhale 1 Puff [...] no edema RESPIRATORY: No dyspnea : neg APPLIED PSYCHOLOGY TEACHER: neg The remainder of the review of [...] Isra Masters DO 03/15/2022 documented in this encounterAshtabula General Hospital05-09-2022 Instructions* Patient Instructions* Urmila Alexander APRN.METAL FURRER - 03/14/2022 10:43 AM EDT PATIENT PREOPERATIVE INSTRUCTIONS Mary Obrien MD has scheduled you for your procedure at this surgery center: [facility]: [phone] -[phone] [address]. Please check in on the1st floor at [...] Procedures: - YOU MUST HAVE A RESPONSIBLE API ARCHITECT TAKE YOU HOME. A PYROGLAZER OR DIRECTOR STAGE CANNOT BE MADE A RESPONSIBLE API ARCHITECT. - We recommend that a responsible person [...] Advance Directive, please fax a copy to [phone] or email to for it to be [...] your chart that day. documented in this encounterAshtabula General Hospital05-09-2022 History and physical note * Urmila [...] fevers. Neurological: No history of TIA's, stroke, SKETCH LINER tumor, impaired sensorium, hemiplegia, paraplegia orquadraplegia. No [...] > 1 time per night or hematuria. APPLIED PSYCHOLOGY TEACHER: Negative for abnormal vaginal bleeding, abnormal vaginal [...] every 4 hours if needed Taking Yes zuituqiamfw-jehhzpoyu-sfrsuxjv (TRELEGY ELLIPTA) 100-62.5-25 mcg Inhale 1 Puff [...] (FLONASE) 50 mcg/actuation nasal spray Use 1 [place] in each nostril once daily. No medication [...] or any previous visit (from the past 29189 hour(s)). EKG: Assessment HTN (hypertension) Assessment: Managed [...] of difficult airway No abnormal airway history [id number] Score: Age: <65 Sex: Female Hypertension history: [...] 10:30 AM PAGER/CONTACT #: documented in this encounterAshtabula General Hospital04-25-2022 Miscellaneous Notes* Telephone Encounter - Isra [...] Monday, 03/02, at 0900 - routed to [employer] to make it legit. Please advise. documented in this encounterAshtabula General Hospital04-15-2022 Instructions* Patient Instructions* Nelsy Chávez APRN.CNP - 02/18/2022 1:18 PM EDT Healing as expected from surgery. You have a pinpoint area of suture just under the vaginal epithelium surface that may need more time to fully heal. Please call the office if you would like to try vaginal estrogen cream or with any questions/concerns. documented in this encounterAshtabula General Hospital04-15-2022 History of Present illness Narrative* Nelsy [...] no Pain: no Abnormal Vaginal Discharge: no APPLIED PSYCHOLOGY TEACHER HISTORY: Last pap: cannot remember; Last mammogram: She has never had a mammogram LMP: No LMP recorded. Patient has had a hysterectomy.; Menopause n/a: Menstrual history: NA; Deliveries: I have confirmed and edited as necessary, the PFSH obtained by others. Nelsy Chávez APRN.METAL FURRER Dirt Bike Racer offered: Patient declines. OBJECTIVE: There were no [...] speculum exam POP-Q: Prolapse Noted: No Impression: Mray Leal is a 51 year old female who is 8 weeks s/p prolapse repair and TVT sling. Plan: Reassurance to pt that she is healing as expected; discussed expectant management vs short course of vaginal estrogen cream to see if this helps. She is traveling to [place] to see her ailing father for two weeks and would like to wait for now to see if things resolve. She knows she can call the office if she changes her mind and would like to trial vaginal estrogen Nelsy Chávez APRN.KWESI documented in this encounterAshtabula General Hospital04-08-2022 History of Present illness Narrative* [facility] [...] 15 [facility] PT documented in this encounterAshtabula General Hospital04-05-2022 Nurse Note* Re Sierra MA - [...] Temperature: No Drains: No documented in this encounterAshtabula General Hospital04-05-2022 History of Present illness Narrative* Mary Obrien MD - 02/08/2022 2:40 PM EDT COLORECTAL SURGERY February 08, 2022 Mary Ludmila Elvis Chief Complaint: follow up History of [...] (FLONASE) 50 mcg/actuation nasal spray Use 1 [place] in each nostril once daily. carBAMazepine XR [...] THE LUNGS every 4 hours if needed faegbjetyvn-igokslksu-tplmubti (TRELEGY ELLIPTA) 100-62.5-25 mcg Inhale 1 Puff [...] medical complications of surgery including DVT/PE, PNA, [place], stroke, and . The patient understands these risks and is in agreement with proceeding. Medical Decision Making: Data Reviewed: Tests & Documents Reviewed/ordered: Review of prior notes from myself, OR, Dr. Wang Review of prior operative reports I have discussed Mary Leal's treatment plan and/or results with the patient. Mary Obrien MD Colorectal Surgery documented in this encounterAshtabula General Hospital04-05-2022 History of Present illness Narrative* Magali Mitchell APRN.[facility] - 02/08/2022 11:04 AM EDT Female [...] you received about pain medications helpful? Yes Dirt Bike Racer offered:Patient declines OBJECTIVE: BP 113/76 Pulse 74 [...] 6 month Patient expressed understanding. Magali Mitchell APRN.METAL FURRER documented in this encounterAshtabula General Hospital03-29-2022 Miscellaneous Notes* Telephone Encounter - Steffi Ross LPN - 02/01/2022 11:08 AM EDT [facility] 06-10-21 Pharmacy and Rx request verified. Please file if appropriate. Thank you Steffi Ross LPN documented in this encounterAshtabula General Hospital03-28-2022 NoteHNO ID: [id number] Author: Newton Woodward, PT Service: ? Author [...] to Home;Specialty Service Patient transferring care to: [facility] SUBJECTIVE: Patient Reason for Visit: [...] untimed codes) : 40 Newton Woodward PT, [facility]03-28-2022 History of Present illness Narrative* Newton [...] to Home;Specialty Service Patient transferring care to: Critical access hospital- [facility] SUBJECTIVE: Patient Reason for Visit: [...] Newton Woodward PT, DPT documented in this encounterAshtabula General Hospital03-21-2022 NoteHNO ID: [id number] Author: Newton Woodward PT Service: ? Author [...] untimed codes) : 45 Newton Woodward PT, [facility]03-15-2022 NoteHNO ID: [id number] Author: Jessi La, PT Service: ? Author Type: Physical Therapist [...] Planned: 8 Planned Treatment Interventions: Therapeutic exercise (63369);Neuromuscular re-education (91019);Manual therapy (40319);Therapeutic activities (22092);Self-prison management (54937);Patient/Family/Caregiver Education PLAN FOR NEXT VISIT: PFM dynamics; biofeedback Patient demonstrates good understanding of plan of care and treatment. The above goals and plan of care were discussed and agreed upon by patient/family. Transfer of Care Due To: Closer to Home (patient to transfer in February 2022) Patient transferring care to: [facility] SUBJECTIVE: Mary Leal is a [...] function/quality of life. 52 (more content not included)...[facility] Medical CenterMglikmae90-68-2727 NoteHNO ID: [id number] Author: Moni Munguia RN Service: Care Management Author Type: Registered Nurse Type: Care Mgt Progress Note Filed: 12/27/2021 4:17 PM Note Text: CARE MANAGEMENT DISCHARGE NOTE SERVICE DATE: 12/27/2021 SERVICE TIME: 4:14 PM LOS: 3 days Admission Date: 12/24/2021 DISCHARGE ARRANGEMENT (list agency and phone number) Discharge Arrangement: Home with Home Health Provider Name: [address] CAREGIVER ASSESSMENT: HANDOFF COMMUNICATION: Handoff to: Primary Care Physician Primary Care Physician Name/Phone: Eliceo Gómez Jr [phone] TRANSPORTATION ARRANGEMENTS: Transportation Arrangements: N/A The Pt is accepted by [address] for new ostomy care. The SOC will be within 24 to 48 hrs. The pt will be contacted directly with the SOC. The Pt verbalized agreement with this dc plan. SIGNATURE: Moni Munguia RN PATIENT NAME: Mary Leal DATE: December 27, 2021 TIME: 4:14 PM PAGER/CONTACT #: [phone] [id number] NoteHNO ID: [id number] Author: Parish Celeste DO Service: Colorectal Author [...] - Pain and nausea control -> d/c DANCE THERAPIST - D/c entereg - Culturelle - Continue [...] 0659 12/27/21 07 - 12/28/21 0659 Shift 1257-1174 2092-0113 1194-5083 24 Hour Total 5424-5514 7359-4958 1193-2805 24 Hour Total INTAKE PO 60 60 PO 60 60 IV 2100 2100 Volume (mL) (lactated ringers iv infusion) 2100 2100 Shift Total 2160 2160 OUTPUT Urine 8981 492 0312 2300 200 200 Void (ml) 300 1000 1300 200 200 Output ( Indwelling Urinary Catheter 12/24/21 Call 16 Fr) 1000 1000 Emesis 0 0 Emesis (ml) 0 0 Ostomy 250 125 375 Ileostomy 1 250 125 375 # of BMs Number of BMs 0 x 0 x Shift Total 4538 861 3011 2675 200 200 Weight (kg) 82.1 82.1 82.1 82.1 82.1 82.1 82.1 82.1 Recent Labs 12/26/21 0755 12/25/21 0606 WBC -- 5.96 HB -- 11.6 HCT -- 35.2* PLT -- 271 NA 139 141 K 4.0 4.0 CHLOR 102 104 CO2 28 28 CREAT 0.62* 0.72 BUN 10 12 GLUC 71 91 CA 8.5 8.5 Parish Celeste DO General Surgery, PGY-4 [phone] After 6 pm and on the weekends please page [phone] 12-26-2021 NoteHNO ID: [id number] Author: Jenifer Ayala MD Service: Colorectal Author Type: Fellow Type: Progress Notes Filed: 12/26/2021 12:13 PM Note Text: GENERAL SURGERY PROGRESS NOTE Name: Mary Leal 12/26/2021 12:11 PM Interval Events: Patient doing well post-operatively. No acute events overnight. Tolerating CLD diet without nausea or vomiting. Stoma productive of bilious fluid + gas Pain well controlled with DANCE THERAPIST + oral pain medication (feels most relief from po oxycodone). Assessment and Plan: 51 year old female with pelvic organ prolapse and chronic constipation, likely slow transit but with possible component of pelvic outlet obstruction and with discordant testing. Patient underwent laparoscopic protopexy on 12/24/21 surgery was uneventful. Post-operative course has been uncompliacted. Pain control- Tylenol Gabapentin Toradol DANCE THERAPIST: Dilaudid, tegretol, klonopin, requip, trintellix, oxycodone Cardiac- [...] any questions or concerns page [facility] [id number] Objective Physical exam: BP 117/66 Pulse 77 Temp 36.6 ?C (97.9 ?F) (Oral) Resp 12 Ht 162.6 cm (5' 4.02 ) Wt 82.1 kg (181 lb) SpO2 98% BMI 31.05 kg/m? General:Alert, Oriented x 3 and No acute distress Respiratory: Negative for SOB/KEATING, cough or wheezing. on RA Abdomen: soft non-distended appropriately-tender, Incisions C/D/I, ostomy in place, pink viable productive of bilious fluid + gas Date 12/25/21 07 - 12/26/21 0659 12/26/21 0700 - 12/27/21 0659 Shift 3025-4959 9657-7068 4266-6377 24 Hour Total 5608-9601 7889-7266 3864-2047 24 Hour Total INTAKE PO 60 60 PO 60 60 IV 213 668 881 Volume (mL) (lactated ringers iv infusion) 213 668 881 Shift Total 273 668 941 OUTPUT Urine 610 876 9894 1000 Void (ml) 0 0 Output ( Indwelling Urinary Catheter 12/24/21 Call 16 Fr) 259 257 9504 1000 Emesis 0 0 Emesis (ml) 0 0 Ostomy 100 100 Ileostomy 1 100 100 # of BMs Number of BMs 0 x 0 x Shift Total 693 418 6081 1000 Weight (kg) 82.1 82.1 82.1 82.1 [...] Diagnosis Date Noted - Pelvic floor dysfunction 12/24/2021[facility] HospitalWldxrdnj22-94-3588 NoteHNO ID: [id number] Author: Sonido Owen MD Service: Colorectal Author [...] been uncompliacted. Pain control- Tylenol Gabapentin Toradol DANCE THERAPIST: Dilaudid, tegretol, klonopin, requip, trintellix Cardiac- Vitals: [...] Owen MD General Surgery PGY 2 Pg [phone] For any questions or concerns page [facility] [id number] Objective Physical exam: BP 111/61 Pulse 86 Temp 37.1 ?C (98.7 ?F) (Axillary) Resp 18 Ht 162.6 cm (5' 4.02 ) Wt 82.1 kg (181 lb) SpO2 93% BMI 31.05 kg/m? General:Alert, Oriented x 3 and No acute distress Respiratory: Negative for SOB/KEATING, cough or wheezing. on RA Abdomen: soft non-distended appropriately-tender, Incisions C/D/I, ostomy in place, pink viable Date 12/24/21 07 - 12/25/21 0659 12/25/21 0700 - 12/26/21 0659 Shift 8708-7475 7671-7080 2853-2326 24 Hour Total 1289-1168 7629-0538 6302-1264 24 Hour Total INTAKE PO 240 120 360 PO 240 120 360 IV 3100 3100 Volume (mL) (lactated ringers iv infusion) 1800 1800 Volume (mL) (lactated ringers iv infusion) 1300 1300 Shift Total 3100 937 600 8269 OUTPUT Urine 200 379 847 5509 OR Urine Output 200 200 Output ( Indwelling Urinary Catheter 12/24/21 Call 16 Fr) 300 500 800 Emesis 0 0 0 Emesis (ml) 0 0 0 Ostomy 0 0 0 Ileostomy 1 0 0 0 # of BMs Number of BMs 0 x 0 x 0 x Blood 50 50 Estimated Blood loss 50 50 Shift Total 250 375 250 9937 Weight (kg) 82.1 82.1 82.1 82.1 82.1 [...] Diagnosis Date Noted - Pelvic floor dysfunction 12/24/2021[facility] HospitalFasiaids98-79-9884 NoteHNO ID: [id number] Author: Carmen Stanley APRN.CRNA Service: Anesthesiology Author Type: Nurse Production Solderer Type: Anesthesia Procedure Notes Filed: 12/24/2021 8:44 [...] December 24, 2021 TIME: 8:44 AM CSN: [id number] NoteHNO ID: [id number] Author: Carmen Stanley APRN.CRNA Service: Anesthesiology Author Type: Nurse Production Solderer Type: Anesthesia Procedure Notes Filed: 12/24/2021 8:44 AM Note Text: ANESTHESIOLOGY PROCEDURE NOTE Airway General Information Procedure Start Time/Medication Administration: 12/24/2021 8:22 AM Patient location during procedure: OR 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, care presentation team member and patient Staffing Anesthesiologist: Chayito Ojeda MD VENETIAN BLIND WORKER: Carmen Stanley APRN.VENETIAN BLIND WORKER Performed by: VENETIAN BLIND WORKER and anesthesiologist Indications and Patient Condition [...] 1 Airway not difficult SIGNATURE: Carmen Stanley APRN.VENETIAN BLIND WORKER PATIENT NAME: Mary Leal DATE: December 24, 2021 TIME: 8:43 AM CSN: [id number] Evaluation note* Encounter Date Diagnosis Assessment Notes [...] note writ ten by Lupillo Amezquita MA, Light Truck Driver. Edited and approved by Dr. Beto Snyder MD. [facility] Other 11-01-2021 Evaluation note* Encounter Date Diagnosis [...] note writ ten by Lupillo Amezquita MA, Light Truck Driver. Edited and approved by Dr. Beto Snyder MD. [facility] Other 10-14-2021 Evaluation note* Encounter Date Diagnosis [...] no improvement in 2 to 3 days. [facility] Other 10-08-2021 Evaluation note* Encounter Date Diagnosis [...] in writting by [facility] document [facility] Other 10-07-2021 Evaluation note* Encounter Date Diagnosis [...] Aug, Other chronic pain (ICD-10 - G89.29) [facility] Other 09-22-2021 Evaluation note* Encounter Date Diagnosis [...] Jul, Other chronic pain (ICD-10 - G89.29) [facility] Other 03-01-2021 Note [id number]:[address] [place] [address] 01-04-2021 NoteCystoscopy with Botox injection ? Voiding [...] if you have a fever over 100 degrees.[facility] 11-11-2020 NoteChief Complaint Pt is here [...] BENSON, Dawna Feldman [address] [place] [address]- [phone] Additional Instructions: F/u in 1yr. Patient Education Urinary Frequency I, Christy Gill , personally scribed for Dr. Marmolejo on 11/11/2020 12:07:15. Electronically signedby alex Gill on 11/11/2020 12:07:15. Documentation recorded by the kritsaibChristy rios, accurately reflects the services(s) I performed [...] deficit disorder Bipolar disorder (more content not included)...[facility] Comment on above:Result Comment: Electronically Signed By: Francie BENSON, Dawna Feldman\.br\Date and Time Signed: 11/11/2111:16 EST\.br\Electronically Co-Signed By: Christy Gill MA\.br\Date and Time Co-Signed: 11/11/20 12:07 [id number]:127[facility] HospitalChief complaint Narrative - Reported* MARY LEAL is being seen for an initial evaluation of. * 52-year-old female seen in cardiology consultation at the request of her primary care physician forelevated troponin [facility] that was associated with a GI bleed/gastritis. * Patient recently underwent large bowel resection details of which are unknown and I suspect possibly consistent with ulcerative colitis but again unknown pathology. She had a diverting colostomy with3 anastomosis performed. While in [place] with her GI bleed and primarily gastric [...] * I believe minor troponin elevation in [place] was simply at small type II non- [place] troponin elevationrelated to inflammation and gastritis and [...] colectomy. She can follow-up as needed otherwise. [facility] DO Work Phone: Evaluation note* Diagnosis Pelvic floor dysfunction- Primary Pelvic muscle wasting Lack of coordination Follow-up examination after colorectal surgery Follow-up examination, following other surgery documented in this [facility]* Diagnosis Gastroesophageal reflux disease, unspecified whether esophagitis present documented in this encounter [facility]* Diagnosis Follow-up examination after colorectal surgery- Primary Follow-up examination, following other surgery documented in this encounter [facility]* Diagnosis Post-operative state- Primary Other postprocedural status Yeast infection of the skin Candidiasis of skin and nails documented in this encounter [facility]* Diagnosis Pelvic floor dysfunction- Primary Pelvic muscle wasting Lack of coordination Follow-up examination after colorectal surgery Follow-up examination, following other surgery documented in this encounter [facility]* Diagnosis Postoperative state- Primary Other postprocedural status Attention to ileostomy ([facility]) Attention to ileostomy documented in this encounter [facility]* Diagnosis Preop examination- Primary Preoperative examination, [...] ileostomy documented in this encounter [facility]* Diagnosis Gastroesophageal reflux disease, unspecified whether esophagitis present Chronic idiopathic constipation Unspecified constipation Attention to ileostomy (HCC) Attention to ileostomy [facility]* Diagnosis Follow-up examination after colorectal surgery- Primary Follow-up examination, following other surgery Pelvic floor dysfunction Pelvic muscle wasting documented in this encounter [facility] noteNo InformationNort [facility] Other Evaluation noteNortloanDepot Other Evaluation note* Diagnosis Follow-up examination after colorectal surgery- Primary Follow-up examination, following other surgery Periumbilical abdominal pain Abdominal pain, periumbilic Outlet dysfunction constipation Colonic inertia Other functional disorders of intestine documented in this encounter [facility] noteNo assessment information availableSelect Medical Special[facility] Work Phone: Evaluation note* Diagnosis Gas bloat syndrome- Primary Chronic idiopathic constipation Unspecified constipation Gastroparesis documented in this encounter [facility] note* Diagnosis Gastroesophageal reflux disease, unspecified whether esophagitis present documented in this encounter [facility] note* Diagnosis Gastroparesis- Primary documented in this encounter [facility] note* Diagnosis CHUCKIE (obstructive sleep apnea)- Primary Obstructive sleep apnea (adult) (pediatric) documented in this encounter [facility] note* Diagnosis Pre-op exam- Primary Preoperative examination, unspecified Primary hypertension Unspecified essential hypertension Mild persistent asthma without complication Unspecified asthma Gastroparesis CHUCKIE (obstructive sleep apnea) Obstructive sleep apnea (adult) (pediatric) documented in this encounter [facility] note* Diagnosis CHUCKIE (obstructive sleep apnea)- Primary Obstructive sleep apnea (adult) (pediatric) documented [facility] this encounter [facility]* Diagnosis Chronic idiopathic constipation- Primary Unspecified constipation Nausea Nausea alone documented in this encounter [facility] note* Diagnosis Gastroesophageal reflux disease with esophagitis without hemorrhage- Primary documented in this encounter [facility] note* Diagnosis Colonic inertia- Primary Other functional disorders of intestine Pelvic floor dysfunction Pelvic muscle wasting Nausea Nausea alone Gastroparesis documented in this encounter [facility] note* Diagnosis Pylorospasm- Primary Functional dyspepsia Dyspepsia and other specified disorders of function of stomach Gastroesophageal reflux disease with esophagitis without hemorrhage documented in this encounter [facility] note* Diagnosis Gastroesophageal reflux disease, unspecified whether esophagitis present documented in this encounter [facility] note* Diagnosis CHUCKIE (obstructive sleep apnea)- Primary Obstructive sleep apnea (adult) (pediatric) documented in this encounter [facility] note* Diagnosis Pylorospasm- Primary Functional dyspepsia Dyspepsia and other specified disorders of function of stomach Gastroesophageal reflux disease with esophagitis without hemorrhage documented in this encounter [facility] note* Diagnosis Gastroparesis- Primary documented in this encounter [facility] note* Diagnosis Preop examination- Primary Preoperative examination, unspecified Nausea Nausea alone CHUCKIE (obstructive sleep apnea) Obstructive sleep apnea (adult) (pediatric) Mild persistent asthma without complication Unspecified asthma Gastroesophageal reflux disease, unspecified whether esophagitis present Gastroparesis documented in this encounter [facility] note* Diagnosis 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 Personal history of other diseases of digestive system documented in this encounter [facility] note* Diagnosis Gastroesophageal reflux disease, unspecified whether esophagitis present documented in this encounter [facility] note* Diagnosis Incomplete bladder emptying- Primary Constipation, unspecified constipation type Urinary urgency Urgency of urination Urinary frequency Nocturia documented in this encounter [facility] note* Diagnosis Upper abdominal pain- Primary Abdominal pain, other specified site [facility] this [facility]* Diagnosis Burning with urination- Primary Dysuria documented in this encounter [facility] note* Diagnosis Bety vaginitis Candidiasis of vulva and vagina documented in this encounter [facility] note* Diagnosis CHUCKIE (obstructive sleep apnea)- Primary Obstructive sleep apnea (adult) (pediatric) Pre-op testing- Primary Unspecified pre-operative examination CHUCKIE (obstructive sleep apnea) Obstructive sleep apnea (adult) (pediatric) documented [facility]* Diagnosis CHUCKIE (obstructive sleep apnea)- Primary Obstructive sleep apnea (adult) (pediatric) documented in this encounter [facility] note* Diagnosis Pre-op examination- Primary Preoperative [...] urge Urge incontinence [facility] Diagnosis Educational circumstances- Primary Educational circumstance Urinary urgency Urgency of urination Urinary frequency OAB (overactive bladder) Hypertonicity of bladder Urinary incontinence, urge Urge incontinence [facility]* Diagnosis Post-operative state- Primary Other postprocedural status documented in this encounter [facility]* Diagnosis Procedure and treatment not carried out for other reasons- Primary documented in this [facility]* Diagnosis Post-operative state- Primary Other postprocedural status Vaginal burning Other specified symptom associated with female genital organs documented in this [facility]* Diagnosis Vaginal burning- Primary Other specified symptom associated with female genital organs documented in this encounter [facility]* Diagnosis Wheeler grade D esophagitis Early satiety Unintentional weight loss Loss of weight Gastroparesis [facility] Diagnosis Gas bloat syndrome documented in this encounter [facility] general Narrative - Reported* Type Description Date [...] see above list Hospitalization History respiratory 02/2020 [facility] [employer] [facility] [employer] general Narrative - Reported* Type Description Date [...] see above list Hospitalization History respiratory 02/2020 [facility] Other InstructionsNot on filedocumented in this encounter [facility] (n[facility]ative[facility] Outpatient Procedure (Routine) - Pending Review Specialty Diagnoses / Procedures Referred By Gustavo salazar Referred To Contact [facility] Diagnoses Gastroparesis Procedures CAPSULE ENDOSCOPY SMART Isra Masters DO [facility] [address] [place] [id number] [place] [phone] Referral ID Status Reason Start Date Expiration Date Visits Requested Visits Authorized [id number] Pending Review Auto-Generat ed Referral 10/11/2022 10/11/2023 1 [facility] Outpatient Procedure (Routine) - Pending Review Specialty Diagnoses / Procedures Referred By Gustavo salazar Referred To Contact [facility] Diagnoses Chronic idiopathic constipation Procedures SIGMOIDOSCOPY SIGMOIDOSCOPY FLX DX W/COLLJ SPEC BR/WA IF PFRMD Isra Masters DO [facility] [address] [place] [address] [place] [phone] Referral ID Status Reason Start Date Expiration Date Visits Requested Visits Authorized [id number] Pending Review Auto-Generat ed Referral 11/30/2022 11/30/2023 1 1 [facility] Outpatient Procedure (Routine) - Pending Review Specialty Diagnoses / Procedures Referred By Gustavo t Referred To Contact [facility] Diagnoses Gastroparesis Procedures EGD - THERAPEUTIC, EUS, OR TUBE INTERVENTIONS ESOPHAGOGASTRODUODENOSC OPY TRANSORAL DIAGNOSTIC STOMACH SURGERY PROCEDURE UNLISTED [place] [address] [facility] [place] [address] [place] [address] Referral ID Status Reason Start Date Expiration Date Visits Requested Visits Authorized [id number] Pending Review Auto-Generat ed Referral 01/11/2023 01/12/2024 1 1 [facility] for referral (narrative)* Outpatient Procedure (Routine) - Pending Review Specialty Diagnoses / Procedures Referred By Gustavo salazar Referred To Contact [facility] Diagnoses Incomplete bladder emptying Urinary urgency Urinary frequency Nocturia Procedures URODYNAMICS WHI COMPLX CYSTOMETRO W/VOID PRESS&URETHRAL PROFILE Nelsy Chávez APRN.[facility] [address] [place] [address] [facility] [address] [place] [address] Referral ID Status Reason Start Date Expiration Date Visits Requested Visits Authorized [id number] Pending Review Auto-Generat ed Referral 07/31/2023 07/30/2024 1 1 [facility] for referral (narrative)* Consultation (Routine) - Open Specialty Diagnoses / Procedures Referred By Gustavo salazar Referred To Contact [facility] Diagnoses Upper abdominal pain Lev Ritter APRN [facility] [address] [place] [address] [facility] [address] [place] [address] Referral ID Status Reason Start Date Expiration Date Visits Re quested Visits Authorized [id number] Open 08/12/2023 09/12/2024 1 1 [facility] NarrativeDISCUSS OTHER OPTIONS PRIOR TO [facility] Other Reason for visit NarrativeRECHECK CERVICAL PAIN DISCUSS PROCEDURENort [facility] Other Reason for visit Narrative* Outpatient Procedure (Routine) - Closed Specialty Diagnoses / Procedures Referred By Gustavo t Referred To Contact [facility] Diagnoses Gastroparesis Procedures GI TRANSIT & PRES RAVINDER WIRELESS CAPSULE W/INTERP Isra Masters DO [facility] [address] [place] [address] [facility] [place] [address] 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 Advance Directive(s) 10/13/2021 4:09 PM Advance Directive(s) 10/14/2020 8:14 AM Documents on File Type Date Recorded 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 Advance Directive(s) 03/21/2022 1:42 PM [...] unspecified whether esophagitis present Isra Masters DO [address] [place] [address] Referral ID Status Reason Start Date Expiration Date Visits Re quested Visits Authorized [id number] Closed 1 1 Referral ID Status Reason Start Date Expiration Date V isits Requested Visits Authorized [id number] Pending Review 1 1 Specialty Diagnoses / Procedures Referred By Contac t Referred To Contact CT IMAGING Diagnoses Periumbilical abdominal pain Procedures CT ABD/PEL W IVCON CT ABD & PELVIS W/[place] [address] [place] [address] Ct Imaging Referral ID Status Reason Start Date Expiration Date Visits Requested Visits Authorized [id number] Pending Review Auto-Generat ed Referral 08/02/2022 08/25/2023 1 1 Reason BILATERAL SHOULDER P AIN Diagnosis 1 Shoulder pain (M25.5 19) Referral Organization [facility] Referring Provider First Name Beto Referring Provider Last Name Steven Referring Provider Specialty Pain Medici ne Referred Organization [facility] Referred Provider Beto Cartagena Referred Address [address] [place], [place],[address] Referred Provider Specialty Orthopedic S urgery Referral Priority Routine Referral Appointment Date 2022-10-10 General Notes Kim Manley 10:01:46 AM >patient already scheduled with [facility] 10/10/22 at 1:30pm. Sending p2p at this time Referral ID Status Reason Start Date Expiration Date Visits Re quested Visits Authorized [id number] Closed 1 1 Specialty Diagnoses / Procedures Referred By Contac t Referred To Contact Diagnoses Wheeler grade D esophagitis Early satiety Unintentional weight loss Gastroparesis Procedures DIAGNOSTIC UPPER ENDOSCOPY RI ESOPHAGOGASTRODUODENOSCOPY TRANSORAL DIAGNOSTIC Padmaja Ledezma MD, PhD [address] [place] [address] Referral ID Status Reason Start Date Expiration Date V isits Requested Visits Authorized [id number] New Request 03/06/2024 03/31/2025 1 1 Chief Complaint and Reason for Visit Chief Complaint M25.519 M25.569 R52 Chief Complaint M25.519 M25.569 R52 bilateral shoulder pain Chief Complaint M76.821/right foor p ain Chief Complaint M76.821/right foor p ain chest tightness dizzy sob Chief Complaint r11.0 r10.11 Chief Complaint M76.71 Chief Complaint M76.71 Unknown Chief Complaint * Patient is a 53-year-old female who returns at the request of her primary care physician with episodic chest discomfort associated weakness, dizziness, diaphoresis with recent work-up that [facility] emergency room. Reportedly her [...] of which are currently being investigated at [facility] (now her fourth GI specialist). * Last year while in [place] she had similar issues with elevated troponins in the ED and underwent heart catheterization that did not reveal any specific significant disease, details of the discharge summary are reviewed * She underwent recent stress perfusion imaging at [facility], the report is reviewed, she [...] disease, will investigate the troponin rise at [facility] however I believe this is likely a non- [place] troponin elevation, likely associated withunderlying inflammatory bowel disease. We will follow-up on a as needed basis unless further objective data come to light * Patient is a 53-year-old female who returns at the request of her primary care physician with episodic chest discomfort associated weakness, dizziness, diaphoresis with recent work-up that [facility] emergency room. Reportedly her [...] of which are currently being investigated at [facility] (now her fourth GI specialist). * Last year while in [place] she had similar issues with elevated troponins in the ED and underwent heart catheterization that did not reveal any specific significant disease, details of the discharge summary are reviewed * She underwent recent stress perfusion imaging at [facility], the report is reviewed, she [...] disease, will investigate the troponin rise at [facility] however I believe this is likely a non- [place] troponin elevation, likely associated withunderlying inflammatory bowel disease. We will follow-up on a as needed basis unless further objective data come to light Additional Source Comments INFORMATION SOURCE (unrecogn ized section and content) DATE CREATED AUTHOR 07/08/2021 [facility] DATE CREATED AUTHOR AUTHOR'S ORGANIZ ATION 11/18/2021 [facility] DATE CREATED AUTHOR AUTHOR'S ORGANIZ ATION 02/01/2022 [facility] DATE CREATED AUTHOR AUTHOR'S ORGANIZ ATION 04/05/2022 [facility] DATE CREATED AUTHOR AUTHOR'S ORGANIZ ATION 09/29/2022 [facility] DATE CREATED AUTHOR AUTHOR'S ORGANIZ ATION 12/09/2022 [facility] DATE CREATED AUTHOR AUTHOR'S ORGANIZ ATION 04/16/2023 [facility] DATE CREATED AUTHOR AUTHOR'S ORGANIZ ATION 06/14/2023 [facility] DATE CREATED AUTHOR AUTHOR'S ORGANIZ ATION 08/14/2023 [facility] DATE CREATED AUTHOR AUTHOR'S ORGANIZ ATION 09/02/2023 [facility] DATE CREATED AUTHOR AUTHOR'S ORGANIZ ATION 10/27/2023 [facility] DATE CREATED AUTHOR AUTHOR'S ORGANIZ ATION 01/11/2024 [facility] DATE CREATED AUTHOR AUTHOR'S ORGANIZ ATION 01/26/2024 [facility] DATE CREATED AUTHOR AUTHOR'S ORGANIZ ATION 03/16/2024 [facility] DATE CREATED AUTHOR AUTHOR'S ORGANIZ ATION 04/21/2024 [facility] DATE CREATED AUTHOR AUTHOR'S ORGANIZ ATION 05/31/2024 [facility] DATE CREATED AUTHOR AUTHOR'S ORGANIZ ATION 07/28/2024 [facility] DATE CREATED AUTHOR AUTHOR'S ORGANIZ ATION 08/02/2024 [facility] DATE CREATED AUTHOR AUTHOR'S ORGANIZ ATION 08/05/2024 [facility] d[facility] Specialists EPIC Source Comments (unrecognize d section and content) In the event this informatio n is protected by the Federal Confidentiality of Alcohol and Drug Abuse Patient Records regulations: The Federal rules restrict any use of the information to criminally investigate or prosecute any alcohol or drug abuse patient.[facility] the event this information is protected by the Federal Confidentiality of Alcohol and Drug Abuse Patient Records regulations: The Federal rules restrict any use of the information to criminally investigate or prosecute any alcohol or drug abuse patient.[facility] the event this information is protected by the Federal Confidentiality of Alcohol and Drug Abuse Patient Records regulations: The Federal rules restrict any use of the information to criminally investigate or prosecute any alcohol or drug abuse patient.[facility] the event this information is protected by the Federal Confidentiality of Alcohol and Drug Abuse Patient Records regulations: The Federal rules restrict any use of the information to criminally investigate or prosecute any alcohol or drug abuse patient.[facility] the event this information is protected by the Federal Confidentiality of Alcohol and Drug Abuse Patient Records regulations: The Federal rules restrict any use of the information to criminally investigate or prosecute any alcohol or drug abuse patient.[facility] the event this information is protected by the Federal Confidentiality of Alcohol and Drug Abuse Patient Records regulations: The Federal rules restrict any use of the information to criminally investigate or prosecute any alcohol or drug abuse patient.[facility] the event this information is protected by the Federal Confidentiality of Alcohol and Drug Abuse Patient Records regulations: The Federal rules restrict any use of the information to criminally investigate or prosecute any alcohol or drug abuse patient.[facility] Hospital[facility] the event this information is protected by the Federal Confidentiality of Alcohol and Drug Abuse Patient Records regulations: The Federal rules restrict any use of the information to criminally investigate or prosecute any alcohol or drug abuse patient.[facility] Hospital[facility] the event this information is protected by the Federal Confidentiality of Alcohol and Drug Abuse Patient Records regulations: The Federal rules restrict any use of the information to criminally investigate or prosecute any alcohol or drug abuse patient.[facility] Hospital[facility] the event this information is protected by the Federal Confidentiality of Alcohol and Drug Abuse Patient Records regulations: The Federal rules restrict any use of the information to criminally investigate or prosecute any alcohol or drug abuse patient.[facility] Hospital[facility] the event this information is protected by the Federal Confidentiality of Alcohol and Drug Abuse Patient Records regulations: The Federal rules restrict any use of the information to criminally investigate or prosecute any alcohol or drug abuse patient.[facility] HospitalIn the event this information is protected by the Federal Confidentiality of Alcohol and Drug Abuse Patient Records regulations: The Federal rules restrict any use of the information to criminally investigate or prosecute any alcohol or drug abuse patient.[facility] HospitalIn the event this information is protected by the Federal Confidentiality of Alcohol and Drug Abuse Patient Records regulations: The Federal rules restrict any use of the information to criminally investigate or prosecute any alcohol or drug abuse patient.[facility] HospitalIn the event this information is protected by the Federal Confidentiality of Alcohol and Drug Abuse Patient Records regulations: The Federal rules restrict any use of the information to criminally investigate or prosecute any alcohol or drug abuse patient.[facility] HospitalIn the event this information is protected by the Federal Confidentiality of Alcohol and Drug Abuse Patient Records regulations: The Federal rules restrict any use of the information to criminally investigate or prosecute any alcohol or drug abuse patient.[facility] HospitalIn the event this information is protected by the Federal Confidentiality of Alcohol and Drug Abuse Patient Records regulations: The Federal rules restrict any use of the information to criminally investigate or prosecute any alcohol or drug abuse patient.[facility] HospitalIn the event this information is protected by the Federal Confidentiality of Alcohol and Drug Abuse Patient Records regulations: The Federal rules restrict any use of the information to criminally investigate or prosecute any alcohol or drug abuse patient.[facility] HospitalIn the event this information is protected by the Federal Confidentiality of Alcohol and Drug Abuse Patient Records regulations: The Federal rules restrict any use of the information to criminally investigate or prosecute any alcohol or drug abuse patient.[facility] HospitalIn the event this information is protected by the Federal Confidentiality of Alcohol and Drug Abuse Patient Records regulations: The Federal rules restrict any use of the information to criminally investigate or prosecute any alcohol or drug abuse patient.[facility] HospitalIn the event this information is protected by the Federal Confidentiality of Alcohol and Drug Abuse Patient Records regulations: The Federal rules restrict any use of the information to criminally investigate or prosecute any alcohol or drug abuse patient.[facility] HospitalIn the event this information is protected by the Federal Confidentiality of Alcohol and Drug Abuse Patient Records regulations: The Federal rules restrict any use of the information to criminally investigate or prosecute any alcohol or drug abuse patient.[facility] HospitalIn the event this information is protected by the Federal Confidentiality of Alcohol and Drug Abuse Patient Records regulations: The Federal rules restrict any use of the information to criminally investigate or prosecute any alcohol or drug abuse patient.[facility] HospitalIn the event this information is protected by the Federal Confidentiality of Alcohol and Drug Abuse Patient Records regulations: The Federal rules restrict any use of the information to criminally investigate or prosecute any alcohol or drug abuse patient.[facility] HospitalIn the event this information is protected by the Federal Confidentiality of Alcohol and Drug Abuse Patient Records regulations: The Federal rules restrict any use of the information to criminally investigate or prosecute any alcohol or drug abuse patient.[facility] HospitalIn the event this information is protected by the Federal Confidentiality of Alcohol and Drug Abuse Patient Records regulations: The Federal rules restrict any use of the information to criminally investigate or prosecute any alcohol or drug abuse patient.[facility] HospitalIn the event this information is protected by the Federal Confidentiality of Alcohol and Drug Abuse Patient Records regulations: The Federal rules restrict any use of the information to criminally investigate or prosecute any alcohol or drug abuse patient.[facility] HospitalIn the event this information is protected by the Federal Confidentiality of Alcohol and Drug Abuse Patient Records regulations: The Federal rules restrict any use of the information to criminally investigate or prosecute any alcohol or drug abuse patient.[facility] HospitalIn the event this information is protected by the Federal Confidentiality of Alcohol and Drug Abuse Patient Records regulations: The Federal rules restrict any use of the information to criminally investigate or prosecute any alcohol or drug abuse patient.[facility] HospitalIn the event this information is protected by the Federal Confidentiality of Alcohol and Drug Abuse Patient Records regulations: The Federal rules restrict any use of the information to criminally investigate or prosecute any alcohol or drug abuse patient.[facility] HospitalIn the event this information is protected by the Federal Confidentiality of Alcohol and Drug Abuse Patient Records regulations: The Federal rules restrict any use of the information to criminally investigate or prosecute any alcohol or drug abuse patient.[facility] HospitalIn the event this information is protected by the Federal Confidentiality of Alcohol and Drug Abuse Patient Records regulations: The Federal rules restrict any use of the information to criminally investigate or prosecute any alcohol or drug abuse patient.[facility] HospitalIn the event this information is protected by the Federal Confidentiality of Alcohol and Drug Abuse Patient Records regulations: The Federal rules restrict any use of the information to criminally investigate or prosecute any alcohol or drug abuse patient.[facility] HospitalIn the event this information is protected by the Federal Confidentiality of Alcohol and Drug Abuse Patient Records regulations: The Federal rules restrict any use of the information to criminally investigate or prosecute any alcohol or drug abuse patient.[facility] HospitalIn the event this information is protected by the Federal Confidentiality of Alcohol and Drug Abuse Patient Records regulations: The Federal rules restrict any use of the information to criminally investigate or prosecute any alcohol or drug abuse patient.[facility] HospitalIn the event this information is protected by the Federal Confidentiality of Alcohol and Drug Abuse Patient Records regulations: The Federal rules restrict any use of the information to criminally investigate or prosecute any alcohol or drug abuse patient.[facility] HospitalIn the event this information is protected by the Federal Confidentiality of Alcohol and Drug Abuse Patient Records regulations: The Federal rules restrict any use of the information to criminally investigate or prosecute any alcohol or drug abuse patient.[facility] HospitalIn the event this information is protected by the Federal Confidentiality of Alcohol and Drug Abuse Patient Records regulations: The Federal rules restrict any use of the information to criminally investigate or prosecute any alcohol or drug abuse patient.[facility] HospitalIn the event this information is protected by the Federal Confidentiality of Alcohol and Drug Abuse Patient Records regulations: The Federal rules restrict any use of the information to criminally investigate or prosecute any alcohol or drug abuse patient.[facility] HospitalIn the event this information is protected by the Federal Confidentiality of Alcohol and Drug Abuse Patient Records regulations: The Federal rules restrict any use of the information to criminally investigate or prosecute any alcohol or drug abuse patient.[facility] HospitalIn the event this information is protected by the Federal Confidentiality of Alcohol and Drug Abuse Patient Records regulations: The Federal rules restrict any use of the information to criminally investigate or prosecute any alcohol or drug abuse patient.[facility] HospitalIn the event this information is protected by the Federal Confidentiality of Alcohol and Drug Abuse Patient Records regulations: The Federal rules restrict any use of the information to criminally investigate or prosecute any alcohol or drug abuse patient.[facility] HospitalIn the event this information is protected by the Federal Confidentiality of Alcohol and Drug Abuse Patient Records regulations: The Federal rules restrict any use of the information to criminally investigate or prosecute any alcohol or drug abuse patient.[facility] HospitalIn the event this information is protected by the Federal Confidentiality of Alcohol and Drug Abuse Patient Records regulations: The Federal rules restrict any use of the information to criminally investigate or prosecute any alcohol or drug abuse patient.[facility] HospitalIn the event this information is protected by the Federal Confidentiality of Alcohol and Drug Abuse Patient Records regulations: The Federal rules restrict any use of the information to criminally investigate or prosecute any alcohol or drug abuse patient.[facility] HospitalIn the event this information is protected by the Federal Confidentiality of Alcohol and Drug Abuse Patient Records regulations: The Federal rules restrict any use of the information to criminally investigate or prosecute any alcohol or drug abuse patient.[facility] HospitalIn the event this information is protected by the Federal Confidentiality of Alcohol and Drug Abuse Patient Records regulations: The Federal rules restrict any use of the information to criminally investigate or prosecute any alcohol or drug abuse patient.[facility] HospitalIn the event this information is protected by the Federal Confidentiality of Alcohol and Drug Abuse Patient Records regulations: The Federal rules restrict any use of the information to criminally investigate or prosecute any alcohol or drug abuse patient.[facility] HospitalIn the event this information is protected by the Federal Confidentiality of Alcohol and Drug Abuse Patient Records regulations: The Federal rules restrict any use of the information to criminally investigate or prosecute any alcohol or drug abuse patient.[facility] HospitalIn the event this information is protected by the Federal Confidentiality of Alcohol and Drug Abuse Patient Records regulations: The Federal rules restrict any use of the information to criminally investigate or prosecute any alcohol or drug abuse patient.[facility] HospitalIn the event this information is protected by the Federal Confidentiality of Alcohol and Drug Abuse Patient Records regulations: The Federal rules restrict any use of the information to criminally investigate or prosecute any alcohol or drug abuse patient.[facility] HospitalIn the event this information is protected by the Federal Confidentiality of Alcohol and Drug Abuse Patient Records regulations: The Federal rules restrict any use of the information to criminally investigate or prosecute any alcohol or drug abuse patient.[facility] HospitalIn the event this information is protected by the Federal Confidentiality of Alcohol and Drug Abuse Patient Records regulations: The Federal rules restrict any use of the information to criminally investigate or prosecute any alcohol or drug abuse patient.[facility] HospitalIn the event this information is protected by the Federal Confidentiality of Alcohol and Drug Abuse Patient Records regulations: The Federal rules restrict any use of the information to criminally investigate or prosecute any alcohol or drug abuse patient.[facility] HospitalIn the event this information is protected by the Federal Confidentiality of Alcohol and Drug Abuse Patient Records regulations: The Federal rules restrict any use of the information to criminally investigate or prosecute any alcohol or drug abuse patient.[facility] HospitalIn the event this information is protected by the Federal Confidentiality of Alcohol and Drug Abuse Patient Records regulations: The Federal rules restrict any use of the information to criminally investigate or prosecute any alcohol or drug abuse patient.[facility] HospitalIn the event this information is protected by the Federal Confidentiality of Alcohol and Drug Abuse Patient Records regulations: The Federal rules restrict any use of the information to criminally investigate or prosecute any alcohol or drug abuse patient.[facility] HospitalIn the event this information is protected by the Federal Confidentiality of Alcohol and Drug Abuse Patient Records regulations: The Federal rules restrict any use of the information to criminally investigate or prosecute any alcohol or drug abuse patient.[facility] HospitalIn the event this information is protected by the Federal Confidentiality of Alcohol and Drug Abuse Patient Records regulations: The Federal rules restrict any use of the information to criminally investigate or prosecute any alcohol or drug abuse patient.[facility] HospitalIn the event this information is protected by the Federal Confidentiality of Alcohol and Drug Abuse Patient Records regulations: The Federal rules restrict any use of the information to criminally investigate or prosecute any alcohol or drug abuse patient.[facility] HospitalIn the event this information is protected by the Federal Confidentiality of Alcohol and Drug Abuse Patient Records regulations: The Federal rules restrict any use of the information to criminally investigate or prosecute any alcohol or drug abuse patient.[facility] HospitalIn the event this information is protected by the Federal Confidentiality of Alcohol and Drug Abuse Patient Records regulations: The Federal rules restrict any use of the information to criminally investigate or prosecute any alcohol or drug abuse patient.[facility] HospitalIn the event this information is protected by the Federal Confidentiality of Alcohol and Drug Abuse Patient Records regulations: The Federal rules restrict any use of the information to criminally investigate or prosecute any alcohol or drug abuse patient.[facility] HospitalIn the event this information is protected by the Federal Confidentiality of Alcohol and Drug Abuse Patient Records regulations: The Federal rules restrict any use of the information to criminally investigate or prosecute any alcohol or drug abuse patient.[facility] HospitalIn the event this information is protected by the Federal Confidentiality of Alcohol and Drug Abuse Patient Records regulations: The Federal rules restrict any use of the information to criminally investigate or prosecute any alcohol or drug abuse patient.[facility] HospitalIn the event this information is protected by the Federal Confidentiality of Alcohol and Drug Abuse Patient Records regulations: The Federal rules restrict any use of the information to criminally investigate or prosecute any alcohol or drug abuse patient.[facility] HospitalIn the event this information is protected by the Federal Confidentiality of Alcohol and Drug Abuse Patient Records regulations: The Federal rules restrict any use of the information to criminally investigate or prosecute any alcohol or drug abuse patient.[facility] HospitalIn the event this information is protected by the Federal Confidentiality of Alcohol and Drug Abuse Patient Records regulations: The Federal rules restrict any use of the information to criminally investigate or prosecute any alcohol or drug abuse patient.[facility] HospitalIn the event this information is protected by the Federal Confidentiality of Alcohol and Drug Abuse Patient Records regulations: The Federal rules restrict any use of the information to criminally investigate or prosecute any alcohol or drug abuse patient.[facility] HospitalIn the event this information is protected by the Federal Confidentiality of Alcohol and Drug Abuse Patient Records regulations: The Federal rules restrict any use of the information to criminally investigate or prosecute any alcohol or drug abuse patient.[facility] HospitalIn the event this information is protected by the Federal Confidentiality of Alcohol and Drug Abuse Patient Records regulations: The Federal rules restrict any use of the information to criminally investigate or prosecute any alcohol or drug abuse patient.[facility] HospitalIn the event this information is protected by the Federal Confidentiality of Alcohol and Drug Abuse Patient Records regulations: The Federal rules restrict any use of the information to criminally investigate or prosecute any alcohol or drug abuse patient.[facility] HospitalIn the event this information is protected by the Federal Confidentiality of Alcohol and Drug Abuse Patient Records regulations: The Federal rules restrict any use of the information to criminally investigate or prosecute any alcohol or drug abuse patient.[facility] HospitalIn the event this information is protected by the Federal Confidentiality of Alcohol and Drug Abuse Patient Records regulations: The Federal rules restrict any use of the information to criminally investigate or prosecute any alcohol or drug abuse patient.[facility] HospitalIn the event this information is protected by the Federal Confidentiality of Alcohol and Drug Abuse Patient Records regulations: The Federal rules restrict any use of the information to criminally investigate or prosecute any alcohol or drug abuse patient.[facility] HospitalIn the event this information is protected by the Federal Confidentiality of Alcohol and Drug Abuse Patient Records regulations: The Federal rules restrict any use of the information to criminally investigate or prosecute any alcohol or drug abuse patient.[facility] HospitalIn the event this information is protected by the Federal Confidentiality of Alcohol and Drug Abuse Patient Records regulations: The Federal rules restrict any use of the information to criminally investigate or prosecute any alcohol or drug abuse patient.[facility] HospitalIn the event this information is protected by the Federal Confidentiality of Alcohol and Drug Abuse Patient Records regulations: The Federal rules restrict any use of the information to criminally investigate or prosecute any alcohol or drug abuse patient.[facility] HospitalIn the event this information is protected by the Federal Confidentiality of Alcohol and Drug Abuse Patient Records regulations: The Federal rules restrict any use of the information to criminally investigate or prosecute any alcohol or drug abuse patient.[facility] HospitalIn the event this information is protected by the Federal Confidentiality of Alcohol and Drug Abuse Patient Records regulations: The Federal rules restrict any use of the information to criminally investigate or prosecute any alcohol or drug abuse patient.[facility] HospitalIn the event this information is protected by the Federal Confidentiality of Alcohol and Drug Abuse Patient Records regulations: The Federal rules restrict any use of the information to criminally investigate or prosecute any alcohol or drug abuse patient.[facility] HospitalIn the event this information is protected by the Federal Confidentiality of Alcohol and Drug Abuse Patient Records regulations: The Federal rules restrict any use of the information to criminally investigate or prosecute any alcohol or drug abuse patient.[facility] HospitalIn the event this information is protected by the Federal Confidentiality of Alcohol and Drug Abuse Patient Records regulations: The Federal rules restrict any use of the information to criminally investigate or prosecute any alcohol or drug abuse patient.[facility] HospitalIn the event this information is protected by the Federal Confidentiality of Alcohol and Drug Abuse Patient Records regulations: The Federal rules restrict any use of the information to criminally investigate or prosecute any alcohol or drug abuse patient.[facility] HospitalIn the event this information is protected by the Federal Confidentiality of Alcohol and Drug Abuse Patient Records regulations: The Federal rules restrict any use of the information to criminally investigate or prosecute any alcohol or drug abuse patient.[facility] HospitalIn the event this information is protected by the Federal Confidentiality of Alcohol and Drug Abuse Patient Records regulations: The Federal rules restrict any use of the information to criminally investigate or prosecute any alcohol or drug abuse patient.[facility] HospitalIn the event this information is protected by the Federal Confidentiality of Alcohol and Drug Abuse Patient Records regulations: The Federal rules restrict any use of the information to criminally investigate or prosecute any alcohol or drug abuse patient.[facility] Reason for Visit (unrecogniz ed section and content) Reason Comments Physical Therapy Specialty Diagnoses / Procedures Referred By Gustavo t Referred To Contact [facility] Diagnoses Follow-up examination after colorectal surgery Procedures CONSULT TO PHYSICAL THERAPY PHYSICAL THERAPY EVALUATION HIGH COMPLEX [address] [place] [address] [place] [address] [facility] [address] [place] [address] Referral ID Status Reason Start Date Expiration Date Visits Requested Visits Authorized [id number] Authorized Auto-Generat ed Referral 01/04/2022 11/05/2022 30 30 Reason Comments Refill Request dexlansoprazole Reason Comments Established Patient Follow-Up Reason Comments Post Op Reason Comments Established Patient Reason Comments Appointment for script refill Reason Comments Gastroparesis Reason Comments [facility] - Other Reason Comments Medication 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 PA [...] ESOPHAGUS DOUBLE CONTRAST STUDY [place] [address] Xr Imaging Referral ID Status Reason Start Date Expiration Date V isits Requested Visits Authorized [id number] Closed Auto-Generate d Referral 11/17/2022 12/17/2023 1 [...] ABD & P[place] W/[place] [address] [place] [address] Ct Imaging Referral ID Status Reason Start Date Expiration Date V isits Requested Visits Authorized [id number] Closed Auto-Generate d Referral 07/28/2022 11/05/2022 2 [...] By Gustavo t Referred To Contact Diagnoses Wheeler grade D esophagitis Early satiety Unintentional weight loss Gastroparesis Procedures DIAGNOSTIC UPPER ENDOSCOPY RI ESOPHAGOGASTRODUODENOSCOPY TRANSORAL DIAGNOSTIC Padmaja Ledezma MD, PhD [address] [place] [address] Referral ID Status Reason Start Date Expiration Date V isits Requested Visits Authorized [id number] New Request 03/06/2024 03/31/2025 1 1 Care Teams (unrecognized sec tion and content) Team Status: Active Member Role Status Dates Shannon Gómez DO Primary Care Provider Active Team Status: Inactive Member Role Status Dates Shannon Gómez DO Primary Care Provider Active Niecy Duron PA-C Attending Provider Active Manager Paper Relationship Specialty Start Date End Date Eliceo Gómez Jr. [address] [place] [address] PCP - General Family Practice 10/14/20 Manager Paper Relationship Specialty Start Date End Date Eliceo Gómez Jr. [address] [place] [address] PCP - General Family Practice 10/14/20 Manager Paper Relationship Specialty Start Date End Date Eliceo Gómez Jr. [address] [place] [address] PCP - General Family Practice 10/14/20 Manager Paper Relationship Specialty Start Date End Date Eliceo Gómez Jr. [address] [place] [address] PCP - General Family Practice 10/14/20 Manager Paper Relationship Specialty Start Date End Date Eliceo Gómez JrReno [address] [place] [address] PCP - General Family Practice 10/14/20 Manager Paper Relationship Specialty Start Date End Date Eliceo Gómez JrReno [address] [place] [address] PCP - General Family Practice 10/14/20 Gwendolyn Stroud [address] [place] [address] Family Practice 03/14/22 Manager Paper Relationship Specialty Start Date End Date Eliceo Gómez Jr. [address] [place] [address] PCP - General Family Practice 10/14/20 Gewndolyn Stroud [address] [place] [address] Family Practice 03/14/22 Manager Paper Relationship Specialty Start Date End Date Eliceo Gómez JrReno [address] [place] [address] PCP - General Family Practice 10/14/20 Gwendolyn Stroud [address] [place] [address] Family Practice 03/14/22 Manager Paper Relationship Specialty Start Date End Date Eliceo Gómez [address] [place] [address] PCP - General Family Practice 10/14/20 Gwendolyn Stroud [address] [place] [address] Family Practice 03/14/22 Manager Paper Relationship Specialty Start Date End Date Eliceo Gómez Jr. [address] [place] [address] PCP - General Family Practice 10/14/20 Gwendolyn Stroud [address] [place] [address] Family Practice 03/14/22 Manager Paper Relationship Specialty Start Date End Date Eliceo Gómez Jr. [address] [place] [address] PCP - General Family Practice 10/14/20 Gwendolyn Stroud [address] [place] [address] Family Practice 03/14/22 Manager Paper Relationship Specialty Start Date End Date Eliceo Gómez Jr. [address] [place] [address] PCP - General Family Practice 10/14/20 Gwendolyn Stroud, [employer] Family Practice 03/14/22 Manager Paper Relationship Specialty Start Date End Date Eliceo Gómez Jr. [address] [place] [address] PCP - General Family Practice 10/14/20 Gwendolyn Stroud, [employer] Family Practice 03/14/22 Manager Paper Relationship Specialty Start Date End Date Eliceo Gómez Jr. [address] [place] [address] PCP - General Family Practice 10/14/20 Gwendolyn Stroud, [employer] Family Practice 03/14/22 Manager Paper Relationship Specialty Start Date End Date Eliceo Gómez Jr. [address] [place] [address] PCP - General Family Practice 10/14/20 Gwendolyn Stroud, [employer] Family Practice 03/14/22 Manager Paper Relationship Specialty Start Date End Date Eliceo Gómez Jr. [address] [place] [address] PCP - General Family Medicine 10/14/20 Gwendolyn Stroud, [employer] Family Medicine 03/14/22 Manager Paper Relationship Specialty Start Date End Date Eliceo Gómez Jr. [address] [place] [address] PCP - General Family Medicine 10/14/20 Gwendolyn Stroud, [employer] Family Medicine 03/14/22 Manager Paper Relationship Specialty Start Date End Date Eliceo Gómez Jr. [address] [place] [address] PCP - General Family Medicine 10/14/20 Gwendolyn Stroud, [employer] Family Medicine 03/14/22 Manager Paper Relationship Specialty Start Date End Date Eliceo Gómez Jr. [address] [place] [address] PCP - General Family Medicine 10/14/20 Gwendolyn Stroud, [employer] Family Medicine 03/14/22 Team Status: Inactive Member Role Status Dates Shannon Gómez DO Primary Care Provider Active Beto Snyder MD Attending Provider Active Manager Paper Relationship Specialty Start Date End Date Eliceo Gómez Jr. [address] [place] [address] PCP - General Family Medicine 10/14/20 Gwendolyn Stroud CNP [address] [place] [address] Family Medicine 03/14/22 Manager Paper Relationship Specialty Start Date End Date Eliceo Gómez Jr. [address] [place] [address] PCP - General Family Medicine 10/14/20 Gwendolyn tSroud CNP [address] [place] [address] Family Medicine 03/14/22 Manager Paper Relationship Specialty Start Date End Date Eliceo Gómez Jr. [address] [place] [address] PCP - General Family Medicine 10/14/20 Gwendolyn Stroud CNP [address] [place] [address] Family Medicine 03/14/22 Manager Paper Relationship Specialty Start Date End Date Eliceo Gómez Jr. [address] [place] [address] PCP - General Family Medicine 10/14/20 Gwendolyn Stroud CNP [address] [place] [address] Family Medicine 03/14/22 Manager Paper Relationship Specialty Start Date End Date Eliceo Gómez Jr. [address] [place] [address] PCP - General Family Medicine 10/14/20 Gwendolyn Stroud CNP [address] [place] [address] Family Medicine 03/14/22 Manager Paper Relationship Specialty Start Date End Date Eliceo Gómez Jr. [address] [place] [address] PCP - General Family Medicine 10/14/20 Gwendolyn Stroud, [employer] [address] [place] [address] Family Medicine 03/14/22 Manager Paper Relationship Specialty Start Date End Date Eliceo Gómez Jr. [address] [place] [address] PCP - General Family Medicine 10/14/20 Gwendolyn Stroud CNP [address] [place] [address] Family Medicine 03/14/22 Manager Paper Relationship Specialty Start Date End Date Eliceo Gómez Jr. [address] [place] [address] PCP - General Family Medicine 10/14/20 Gwendolyn Stroud CNP [address] [place] [address] Family Medicine 03/14/22 Manager Paper Relationship Specialty Start Date End Date Eliceo Gómez Jr. [address] [place] [address] PCP - General Family Medicine 10/14/20 Gwendolyn Stroud, [employer] [address] [place] [address] Family Medicine 03/14/22 Manager Paper Relationship Specialty Start Date End Date Eliceo Gómez Jr. [address] [place] [address] PCP - General Family Medicine 10/14/20 Gwendolyn Stroud, [employer] [address] [place] [address] Family Medicine 03/14/22 Manager Paper Relationship Specialty Start Date End Date Eliceo Gómez Jr. [address] [place] [address] PCP - General Family Medicine 10/14/20 Gwendolyn Stroud, [employer] [address] [place] [address] Family Medicine 03/14/22 Team Status: Inactive Member Role Status Henrietta Gómez DO Primary Care Provider Active Beto Cartagena MD Attending Provider Active Manager Paper Relationship Specialty Start Date End Date Eliceo Gómez Jr. [address] [place] [address] PCP - General Family Medicine 10/14/20 Gwendolyn Stroud, [employer] [address] [place] [address] Family Medicine 03/14/22 Manager Paper Relationship Specialty Start Date End Date Eliceo Gómez Jr. [address] [place] [address] PCP - General Family Medicine 10/14/20 Gwendolyn Stroud, [employer] [address] [place] [address] Family Medicine 03/14/22 Manager Paper Relationship Specialty Start Date End Date Eliceo Gómez Jr. [address] [place] [address] PCP - General Family Medicine 10/14/20 Gwendolyn Stroud CNP [address] [place] [address] Family Medicine 03/14/22 Manager Paper Relationship Specialty Start Date End Date Eliceo Gómez Jr. [address] [place] [address] PCP - General Family Medicine 10/14/20 Gwendolyn Stroud CNP [address] [place] [address] Family Medicine 03/14/22 Manager Paper Relationship Specialty Start Date End Date Eliceo Gómez Jr. [address] [place] [address] PCP - General Family Medicine 10/14/20 Gwendolyn Stroud CNP [address] [place] [address] Family Medicine 03/14/22 Manager Paper Relationship Specialty Start Date End Date Eliceo Gómez Jr. [address] [place] [address] PCP - General Family Medicine 10/14/20 Gwendolyn Stroud CNP [address] [place] [address] Family Medicine 03/14/22 Manager Paper Relationship Specialty Start Date End Date Eliceo Gómez Jr. [address] [place] [address] PCP - General Family Medicine 10/14/20 Gwendolyn Stroud CNP [address] [place] [address] Family Medicine 03/14/22 Manager Paper Relationship Specialty Start Date End Date Eliceo Gómez Jr. [address] [place] [address] PCP - General Family Medicine 10/14/20 Gwendolyn Stroud CNP [address] [place] [address] Family Medicine 03/14/22 Team Status: Inactive Member Role Status Henrietta Gómez , DO Primary Care Provider Active Anibal Valle , DO Emergency Provider Active Manager Paper Relationship Specialty Start Date End Date Eliceo Gómez Jr. [address] [place] [address] PCP - General Family Medicine 10/14/20 Gwendolyn Stroud CNP [address] [place] [address] Family Medicine 03/14/22 Manager Paper Relationship Specialty Start Date End Date Eliceo Gómez Jr. [address] [place] [address] PCP - General Family Medicine 10/14/20 Gwendolyn Stroud CNP [address] [place] [address] Family Medicine 03/14/22 Manager Paper Relationship Specialty Start Date End Date Eliceo Gómez Jr. [address] [place] [address] PCP - General Family Medicine 10/14/20 Gwendolyn Stroud CNP [address] [place] [address] Family Medicine 03/14/22 Manager Paper Relationship Specialty Start Date End Date Eliceo Gómez Jr., DO [address] [place] [address] PCP - General Family Medicine 10/14/20 Gwendolyn Stroud CNP [address] [place] [address] Family Medicine 03/14/22 Manager Paper Relationship Specialty Start Date End Date Eliceo Gómez Jr., DO [address] [place] [address] PCP - General Family Medicine 10/14/20 Gwendolyn Struod CNP [address] [place] [address] Family Medicine 03/14/22 Manager Paper Relationship Specialty Start Date End Date Eliceo Gómez Jr., DO [address] [facility], [address] [place] [address] PCP - General Family Medicine 12/11/19 Team Status: Inactive Member Role Status Dates Shannon Gómez DO Primary Care Provider Active Start: November 23, 2023 End: November 23, 2023 Eagle Vazquez DO Attending Provider Active Start : November 23, 2023 End: November 23, 2023 Manager Paper Relationship Specialty Start Date End Date Eliceo Gómez Jr., DO [address], [address] [place] [address] PCP - General Family Medicine 12/11/19 [facility] [address] [place] [phone] (Work) Consulting Physician Behavioral Health 12/20/23 Manager Paper Relationship Specialty Start Date End Date Eliceo Gómez Jr., DO [address] [place] [address] PCP - General Family Medicine 10/14/20 Gwendolyn Srtoud CNP [address] [place] [address] Family Medicine 03/14/22 Manager Paper Relationship Specialty Start Date End Date Eliceo Gómez Jr., DO [address] [place] [address] PCP - General Family Medicine 12/11/19 [place] [phone] (Work) Consulting Physician Behavioral Health 12/20/23 Manager Paper Relationship Specialty Start Date End Date Eliceo Gómez Jr., DO [address] [place] [address] PCP - General Family Medicine 10/14/20 Gwendolyn Stroud, [employer] [address] [place] [address] Family Medicine 03/14/22 Manager Paper Relationship Specialty Start Date End Date Eliceo Gómez Jr., DO [address], [address] [place] [address] PCP - General Family Medicine 12/11/19 Jenna Butler [address] Consulting Physician Behavioral Health 12/20/23 Manager Paper Relationship Specialty Start Date End Date Eliceo Gómez Jr., DO [address] [place] [address] PCP - General Family Medicine 10/14/20 Gwendolyn Stroud, [employer] [address] [place] [address] Family Medicine 03/14/22 Manager Paper Relationship Specialty Start Date End Date Eliceo Gómez Jr., DO [address] [place] [address] PCP - General Family Medicine 10/14/20 Gwendolyn Stroud, [employer] [address] [place] [address] Family Medicine 03/14/22 Manager Paper Relationship Specialty Start Date End Date Eliceo Gómez Jr., DO [address] [place] [address] PCP - General Family Medicine 10/14/20 Gwendolyn Stroud, [employer] [address] [place] [address] Family Medicine 03/14/22 Manager Paper Relationship Specialty Start Date End Date Eliceo Gómez Jr., DO [address] [place] [address] PCP - General Family Medicine 10/14/20 Gwendolyn Stroud CNP [address] [place] [address] Family Medicine 03/14/22 Manager Paper Relationship Specialty Start Date End Date Eliceo Gómez Jr., DO [address] [place] [address] PCP - General Family Medicine 10/14/20 Gwendolyn Stroud CNP [address] [place] [address] Family Medicine 03/14/22 Manager Paper Relationship Specialty Start Date End Date Shannon Gómez, [address] [place] [address] PCP - General Family Medicine 11/14/23 Team Status: Inactive Member Role Status Dates Shannon Gómez DO Primary Care Provider Active Start: April 30, 2024 End: April 30, 2024 Sade Felix DPM MS Attending Provider Active Start: April 30, 2024 End: April 30, 2024 Team Status: Inactive Member Role Status Dates Sade Felix DPM MS Attending Provider Active Start: May 27, 2024 End: May 27, 2024 Manager Paper Relationship Specialty Start Date End Date Eliceo Gómez Jr., DO [address] [place] [address] PCP - General Family Medicine 10/14/20 Gwendolyn Stroud CNP [address] [place] [address] Family Medicine 03/14/22 Goals (unrecognized section and [...] BE BASED ON THE PRIMARY CLINICAL RECORDS. [facility]. provides no warranty or guarantee of the accuracy or completeness of information in this document.
[2024-08-05 07:56] VITALS: BP 112/72; PULSE 69; TEMP 36.3; O2SAT 97
[2024-08-05 08:34] VITALS: BP 101/69; PULSE 72; O2SAT 94
[2024-08-05 08:37] VITALS: BP 108/75; PULSE 70; O2SAT 92
[2024-08-05] MEDS: BUPIVACAINE HCL 0.25% PF 25 MG/10 ML VIAL INJ (08:39)
--- NOTE | 2024-08-05 08:39 | P.ON_ITS ---
Date of procedure: 08/05/24 Pre-op diagnosis: Pain due to cervical radiculopathy Post-op diagnosis: same as pre-op Procedure: Procedure: Left C3-4, 4-5 transforaminal epidural steroid injection Medications: Bupivacaine 0.25% 2cc, lidocaine 2% 1cc, dexamethasone 10mg The patient was seen and examined in the preoperative holding area.? Informed consent was obtained and placed on the chart.? Patient was brought to the medical procedure unit and placed in the prone position where a timeout was completed verifying the correct patient, procedure site, position, and planned special equipment using sterile aseptic technique.? Under direct fluoroscopic visualization a 25-gauge Quincke tipped spinal needle was advanced to the designated neural foramen where contrast dye was injected to show adequate spread.? The needle was inserted at level left C3-4. There was no evidence of v ascular or adverse uptake.? Epidural spread was appreciated.? The above- mentioned injectate was then placed in a 1.5 mL aliquot preceded by negative aspiration.? The needle was removed. The needle was inserted and the procedure repeated at level left C4-5.? The surgery site was covered.? Patient was taken to the postprocedural recovery area and monitored for an appropriate length of time before found suitable for discharge in the accompaniment of a responsible adult. Anesthesia: Local Surgeon: Ace Ahumada Pathology: none sent Condition: stable Disposition: no change
[2024-08-05] MEDS: LIDOCAINE HCL 2% 400 MG/20 ML MDV INJ (08:40)
[2024-08-05] MEDS: DEXAMETHASONE SOD PHOS 10 MG/ML VIAL INJ (08:40)
[2024-08-05] MEDS: IOHEXOL 240 MG/ML - 10 ML VIAL 12 MG INJ (08:40)
== END 2024-08-05 08:44 | disposition home or self-care (01) ==
LOC: SURGOUT 07:35
PROVIDERS: PCP Family Medicine; Visit Provider Anesthesiology
DX: M54.12 Radiculopathy, cervical region (principal)
CPT/HCPCS: 64479; 64480; J0665; J1100; Q9966

== ENCOUNTER 2024-08-28 09:25 | Outpatient (OUT) | payer MEDICARE, MEDICAID, SELFPAY ==
--- OUTSIDE RECORDS SUMMARY | 2024-08-28 09:51 | XMS_ITS | CCD ---
Author Organization [facility] Care Team Providers Care Food Order Delivery Runner Name Role Phone PARISH GÓMEZ Primary Care Unavailable Eliceo Gómez Jr. Primary Care Provider Yaniv Stroudcie Unavailable Maximus OROSCO, Gwendolyn Unavailable [phone] Beto Snyder Unavailable Tita Daugherty Unavailable Erica Kingston Unavailable Eliceo Gómez Unavailable Unavailable Unavailable Allison Arita Unavailable Eliceo Gómez Jr. Primary Care Provider Maximus OROSCO Gwendolyn Unavailable Eliceo Gómez Unavailable DO Shannon Gómez Primary Care Provider MD Beto Snyder Attending Provider Eliceo Gómez Jr. Primary Care Provider Maximus OROSCO Gwendolyn Unavailable Beto Cartagena Unavailable MD Beto Cartagena Attending Provider [phone] WINSTON HANNAH Attending Unavailable WINSTON HANNAH Referring Unavailable ELICEO GÓMEZ JR Primary Care Unavail able ISRA MASTERS Attending Unavailable ISRA MASTERS Referring Unavailable ELICEO GÓMEZ JR Primary Care Unavail able DO Shannon Gómez Primary Care Provider LORRAINE Duron Attending Provider DR FELISHA SKELTON Consulting Unavailable KAFTAN, DR Isatu LUGO Primary Care Unavailable HAY ., DR BAEZA Admitting Unavailable HAY ., DR BAEZA Attending Unavailable SALMA AMEZQUITA Consulting Unavailable HIGHLANDER, SADE Keys Consulting Unavailable HIGHLANDER, SADE Keys Attending Unavailable HIGHLANDER, PETER D Admitting Unavailable KAFTAN, DR Isatu LUGO Primary Care Unavailable HOLLINGSWORTHSHERLYN Consulting Unavailable HIGHLANDER, PETER D Attending Unavailable HIGHLANDER, PETER D Admitting [...] Unavailable HIGHLANDER, SADE Keys Attending Unavailable HIGHLANDER, PETER D Admitting Unavailable ZIEBER, DR ZAIDA Ellis Consulting Unavailable HIGHLANDER, SADE Keys Consulting Unavailable KAFTAN, DR Isatu LUGO Primary Care Unavailable HAY ., DR BAEZA Consulting Unavailable HAY ., DR BAEZA Attending Unavailable HAY ., DR BAEZA Admitting Unavailable HIGHLANDER, SADE Keys Attending Unavailable HIGHLANDER, PETER D Admitting Unavailable KAFTAN, DR Isatu LUGO Primary Care Unavailable ZIEBER, DR ZAIDA Ellis Consulting Unavailable HIGHLANDER, SADE Keys Consulting Unavailable KAREEM, NIECY Attending Unavailable KAREEM, NIECY Admitting Unavailable KAFTAN, DR Isatu LUGO Primary Care Unavailable ZIEBER, DR ZAIDA Ellis Consulting Unavailable KAREEM, NIECY Consulting Unavailable KAREEM, NIECY Admitting Unavailable KAREEM, NIECY Attending Unavailable KAFTAN, DR Isatu LGUO Primary Care Unavailable ZIEBER, DR ZAIDA Ellis Consulting Unavailable KAREEM, NIECY Consulting Unavailable KAREEM, NIECY Admitting Unavailable KAREEM, NIECY Attending Unavailable WEST, DR NICKI Gale Consulting Unavailable KAFTAN, DR Isatu LUGO Primary Care Unavailable KAREEM, NIECY Consulting Unavailable JOSEJENNIFER Attending Unavailable HAY ., DR BAEZA Consulting [...] Unavailable WEST, DR NICKI Gale Consulting Unavailable HIGHLSADE GRANADOS Consulting Unavailable EDUARDO ., NANCY LAMA Consulting Unavailable GEMBUS, DAWNA Consulting Unavailable HIGHLANDER, SADE Keys Consulting Unavailable CHANI, SADE Keys Attending Unavailable SADE FELIX Admitting Unavailable KAFTAN, DR Isatu LUGO Primary Care Unavailable KAFTAN, [...] ilaraceli Gómez Jr., Eliceo LOAIZA Primary Care Provi jose eduardo PAULINE CHRISTENSEN Attending Unavailable ELICEO GÓMEZ JR Referring Unavailable ELICEO GÓMEZ JR Primary Care Unavailable Dalia Morales DO, George R Primary Care Provider DO Shannon Gómez Primary Care Provider [phone] DO Eagle Vazquez Attending Provider RAJIV WILKINSON Attending Unavailable ELICEO GÓMEZ JR Primary Care Unavailable CULLEN DAWKINS Referring Unavailable ELICEO GÓMEZ JR Primary Care Unavailable CULLEN DAWKINS Attending Unavailable CULLEN DAWKINS Referring Unavailable KAFTAN JR, ELICEO Ellis Primary Care Unavailable EVERETTE, CULLEN Zhou Attending Unavailable KAFTAN JR, ELICEO R Referring Unavailable KAFTAN JR, ELICEO Ellis Primary Care Unavailable WERNING, CULLEN W Admitting Unavailable WERBELEN, CULLEN Zhou Attending Unavailable EVERETTE, CULLEN Zhou Referring Unavailable KAFTAN JR, ELICEO Ellis Primary Care Unavailable WANG, PAM Referring Unavailable KAFTAN JR, ELICEO LUGO Primary Care Unavail able Kaleigha Jr., Eliceo LOAIZA Primary Care Provi jose eduardo DALIA JENKINS, ELICEO PARISH Primary Care Unavail able WANG, PAM Admitting Unavailable WANG, PAM Attending Unavailable WANG, PAM Referring Unavailable KAFTAN JR, ELICEO LUGO Primary Care Unavail able JAIRON LAI Attending Unavailable WANG, PAM Attending Unavailable KAFTAN JR, ELICEO LUGO Primary Care Unavail able KAFTAN JR, ELICEO LUGO Primary Care Unavail able NELSY CHÁVEZ Attending Unavailable FLOWER LOPEZ Attending Unavailable KAJEROMEAN , ELICEO PARISH Primary Care Unavail able KAFTAN JR, ELICEO PARISH Primary Care Unavail able KAFTAN JR, ELICEO LUGO Primary Care Unavail able KAFTAN JR, ELICEO LUGO Primary Care Unavail able WANG, PAM Attending Unavailable KAFTAN , ELICEO LUGO Primary Care Unavail able WANG, PAM Attending Unavailable WANG, PAM Referring Unavailable KAFTAN JR, ELICEO LUGO Primary Care Unavail able DORIS ARIAS Attending Unavailable Shannon Gómez DO Primary Care Provider DO Shannon Gómez Primary Care Provider FADUMO Felix Attending Provider Sade Felix Attending Unavailable Sade Felix Admitting Unavailable Shannon Gómez Primary Care Unavailable Eagle Vazquez Attending Unavailable Eagle Vazquez Admitting Unavailable Sade Felix Attending Unavailable Sade Felix Admitting Unavailable Shannon Gómez Primary Care Unavailable Anibal Valle Attending Unavailable Anibal Valle Admitting Unavailable Shannon Gómez Primary Care Unavailable ELICEO GÓMEZ Attending Unavailable EAGLE VAZQUEZ Attending Unavailable ELICEO GÓMEZ Attending Unavailable DIPTI ACEVEDO Attending Unavailable EAGLE VAZQUEZ Attending Unavailable ELICEO GÓMEZ Referring Unavailable KAELICEO AHUJA Attending Unavailable ELICEO GÓMEZ Referring Unavailable KAFTAN, ELICEO R Attending Unavailable KAFTAN, ELICEO R Referring Unavailable TATAYRON Attending Unavailable JES MARTINEZ Attending Unavailable SIDNEY AMEZQUITA Attending Unavailable KAFTTOMASA, ELICEO R Referring Unavailable KAFTAN, ELICEO R Attending Unavailable KAFTAN, ELICEO R Referring Unavailable NELSY SNYDER Attending Unavailable EAGLE VAZQUEZ Attending Unavailable KAFTAN, ELICEO R Referring Unavailable LUBY, RON Rivera Attending Unavailable HERNANDEZAN, ELICEO R Referring Unavailable LAFEAGLE MAR Referring Unavailable LUBY, RON Rivera Referring Unavailable KAFTAN, ELICEO R Attending Unavailable DIPTI ACEVEDO Attending Unavailable CARMEN COCHRAN Attending Unavailable TIGRE, RON Rivera Attending Unavailable DIPTI ACEVEDO Attending Unavailable PETITTFaizan, CARMEN Guzman Attending Unavailable SIDNEY AMEZQUITA Attending Unavailable KAFTAN, ELICEO R Attending Unavailable KAFTAN, ELICEO R Referring Unavailable KAFTAN, ELICEO R Attending Unavailable KAFTAN, ELICEO R Referring Unavailable Giedraitis , Andrius Shahlaytnellie Attending Unavailable Giedraitis , Andrius Vytautalvin Attending Unavailable Giedraitis , Andrius Vytautas Attending [...] Unavailable Giedraitis , Andrius Vytautas Attending Unavailable CHRISTENSEN, AJAZ Referring Unavailable CHRISTENSEN, PAULINE Attending Unavailable GIANA MORALES Attending Unavailable CHRISTENSEN, AJAZ Attending Unavailable CHRISTENSEN, AJAZ Attending Unavailable CHRISTENSEN, AJAZ Referring Unavailable Unavailable Primary Care Provider Unavailabl PADMAJA Mckeon Referring Unavailable Shannon ÓGMEZ Primary Care Unavailable RADHA CARDENAS Attending Unavailable MERISSA DELAROSA Attending Unavailable PADMAJA LLAMAS Referring Unavailable Shannon GÓMEZ Primary Care Unavailable Shannon GÓMEZ Primary Care Unavailable Shannon GÓMEZ Referring Unavailable RADHA CARDENAS Attending Unavailable Shannon GÓMEZ Primary Care Unavailable Shannon GÓMEZ Referring Unavailable RADHA CARDENAS Attending Unavailable Shannon GÓMEZ Primary Care Unavailable hSannon GÓMEZ Referring Unavailable RADHA CARDENAS Attending Unavailable Shannon GÓMEZ Primary Care Unavailable SELF, SELF Referring Unavailable GURJIT FRANCORADHA Attending Unavailab debra LLAMAS, NA Referring Unavailable Shannon GÓMEZ Primary Care Unavailable Allergies Allergy Classification Reported Allergen(s) Allergy Type Date of Onset Reaction(s) Facility risperiDONE (1 source) risperiDONE Drug Allergy 9 [facility] (20 sources) risperiDONE; Translations: [RisperDAL TABS] Drug Allergy 0 Intolerance, Other (See Comments) [facility] (1 source) oxyCODONE Drug Allergy [facility] (1 source) risperiDONE Drug Allergy [facility] (14 sources) POISON BRENDA EXTRACT; Translations: [POISON BRENDA EXTRACT] Drug Allergy 3 Rash [facility] (1 source) risperiDONE Drug Allergy 3 [facility] Rep[facility] (1 source) POISON BRENDA; Translations: [POISON BRENDA] Propensity to adverse reactions to drug (disorder) 2 [facility] Repository Medications Current Medications Medication Drug [...] Comment on above: Take 2 tablets by [facility] every 6 hours as needed for pain. Take 2 tablets by mo [facility] every 6 hours as needed for [...] Comment on above: Take 1 tablet by [facility] three times a day. acetaminophen 325 [...] 1 tablet by mouth every twelve hours [id number] 200 actuat albuterol 0.09 mg/actuat metered dose [...] Comment on above: inhale 2 puffs by ma [facility] INTO THE LUNGS every 4 [...] 2020 10:25am take 1 capsule by mo [facility] in the morning, then take 1 capsule by mouth at bedtime celecoxib (CeleBREX) 200 mg capsule Take 1 capsule (200 mg total) by mouth in the morning and 1 capsule (200 mg total) before bedtime. 0 Active Comment on above: take 1 capsule by mo [facility] twice a day if needed cholecalciferol 0.125 mg oral tablet (20 sources) Vitamin D Start: 03-11-2024 take 1 tablet by mouth once daily Vitamin D3 125 MCG (5000 UT) per tablet Take 1 tablet by mouth daily. 90 tablet 3 03/11/2024 Active Start: 05-12-2023 take 1 capsule by mo [facility] once daily Cholecalciferol (Vitamin D3) (Vitamin D3) [...] by mouth once daily. 168 hr cloNIDine 0.41166 mg/hr transdermal system (3 sources) Central alpha-2 [...] Start: 06-05-2023 take 1 capsule by mo [facility] once daily Dexlansoprazole (Dexilant) 60 mg Capsule,Biphase [...] Active Start: 07-20-2023 take 1 puff(s) by [facility] once daily TRELEGY ELLIPTA 100-62.5-25 MCG/ACT AEPB Take 1 puff by mouth. Inhale once daily 0 07/20/2023 Active Start: 05-31-2022 take 1 puff(s) by in halation in the morning bnuywbwlgix-uponatzbm-exxgxugi (TRELEGY ELLIPTA) 100-62.5-25 mcg blister with device Indications: Asthma, unspecified asthma severity, unspecified whether complicated, unspecified whether persistent Inhale 1 puff in the morning. 60 each 5 05/31/2022 Active take 1 puff(s) by in halation once daily nzivbxqhpna-huehsvwpb-axykdume (TRELEGY ELLIPTA) 100-62.5-25 mcg Inhale 1 Puff [...] needed for pain. Take 1 tablet by [facility] every 6 hours as needed for pain for up to 7 days. inulin 200 mg / lactobacillus rhamnosus gg [id number] unt oral capsule (1 source) Start: End: take 1 capsule by mouth once daily lactobacillus rhamnosus (CULTURELLE) 10 billion cell -200 mg capsule Take 1 capsule by mouth once daily. 30 capsule 0 06/07/2022 07/07/2022 Active Comment on above: Take 1 capsule by [facility] once daily. iv contrast (will be provided [...] above: Take 1 capsule by mo [facility] every afternoon. LORazepam 1 mg oral [...] 05, 2023 12:00am [facility] LORazepam 0.5 MG 1 tablet at bedtime as needed Orally Once a day Active omeprazole 40 mg delayed release oral capsule (20 sources) Proton Pump Inhibitor Start: 03-06-2024 take 1 capsule by mouth once daily omeprazole [address] capsule Indications: Nebo grade D esophagitis Take 1 capsule by [...] DO Active take 1 tablet by yancy at bedtime traZODone HCl - 150 MG [...] breakfast docusate sodium 50 mg / sennosides, residential 8.6 mg oral tablet (7 sources) Start: [...] Fluticasone Propionate (Flonase Allergy Relief) 50 mcg/actuation [place],Suspension Discontinued 2 SPRAY INTRANASAL Daily October 15, 2018 1:00am June 18, 2019 3:04pm Comment on above: Use 1 [place] in each nostril once daily. Fluticasone Propion-Salmeterol [...] June 18, 2019 3:04pm lactobacillus rhamnosus gg [id number] unt oral capsule (20 sources) Start: 06-09-2022 [...] Discontinued Start: 12-27-2021 take 1 capsule by [facility] once daily lactobacillus rhamnosus (CULTURELLE) 10 billion cell capsule Take 1 capsule by mouth once daily. 30 capsule 0 12/27/2021 Active Comment on above: Take 1 capsule by [facility] once daily. lamoTRIgine 200 mg oral tablet [...] 0 Active take 1 tablet by yancy once daily lamoTRIgine 25 MG tablet Take 1 tablet by mouth daily. Active take 2 tablets by mo [facility] in the morning lamoTRIgine (LaMICtal) 25 [...] Comment on above: Take 1 tablet by [facility] twice daily. for vaginosis. Do not drink [...] Comment on above: Take 2 tablets by [facility] as directed. Take 2 tablet at 6pm, 7pm, and 11pm the evening prior to surgery. nitrofurantoin, macrocrystals 25 mg / nitrofurantoin, monohydrate 75 mg oral capsule (10 sources) Nitrofuran Antibacterial Start: End: take 1 capsule by mouth twice daily at mealtime Nitrofurantoin Monohyd/M-Cryst (Macrobid) 100 mg capsule Discontinued 100 MG PO Twice daily 08 10February 18, 2020 12:00am June 05, 2023 10:13am must administer with a meal/food Comment on above: Take 1 capsule by [facility] twice daily. nystatin [id number] unt/ml topical cream (20 sources) Polyene Antifungal [...] June 05, 2023 10:13am polyethylene glycol 3350 81155 mg powder for oral solution (3 sources) [...] 15, 2018 3:24pm take 2 capsules by [facility] three times daily pregabalin 25 MG [...] above: Take 1 capsule by mo [facility] as directed. As needed for constipation [...] above: Take 2 tablets by mo [facility] three times daily as needed. simethicone [...] Comment on above: Take 1 tablet by [facility] every 8 hours as needed. Trelegy [...] above: Take 1,000 mcg by mo [facility] once daily. vortioxetine 10 mg [...] Chronic Esophageal disorders (1 source) Esophagitis; Translations: [Nebo grade D esophagitis] 04-12-2024 Episodic Essential hypertension [...] 2 Chronic Other aftercare (1 source) Other penitentiary (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; Translations: [OTH MANAGER DELIVERY CURRENT DRUG THERAPY] Onset: 3 Episodic Other [...] Translations: [Abnormal weight loss] 04-12-2024 Episodic Other upper respiratory disease (19 sources) [...] (pediatric)] Onset: 3 Chronic Residual codes; unclassified (5 sources) Postoperative state; Translations: [Other specified postprocedural states] Episodic Residual codes; unclassified (3 sources) Pain, unspecified Episodic Residual codes; unclassified (1 source) Acquired absence of both cervix and uterus; Translations: [ACQUIRED ABSENCE BOTH CERVIX AND UTERUS] Onset: 3 Episodic Residual codes; unclassified (1 source) Procedure not done; Translations: [Procedure and treatment not carried out for other reasons] 02-11-2024 Episodic Residual codes; unclassified (1 source) Pain; Translations: [Pain, unspecified] 09-29-2020 Episodic Spondylosis; intervertebral disc disorders; other back [...] Inspire Implant Onset: 4 Unclassified (2 sources) New Patient; Translations: [New Patient] Onset: 4 Unclassified (1 source) Other esophagitis [...] RT ANKLE FOOT] Onset: 11-03-2022 Episodic Other nutritional; endocrine; and metabolic disorders (2 sources) Abnormal weight loss; Translations: [Abnormal weight loss] Onset: 04-12-2024 Episodic Other upper respiratory disease (4 sources) [...] OTH PART DIGESTV TRACT] Onset: 11-03-2022 Episodic Residual codes; unclassified (2 sources) Early satiety; Translations: [Early satiety] Onset: 04-12-2024 04-12-2024 Episodic Residual codes; unclassified (1 source) Early satiety; Translations: [Early satiety] Onset: 04-12-2024 Episodic Skin and subcutaneous tissue infections (1 [...] Interpretation Reference Range Facility US ABDOMEN LIMITEDon 024 US ABDOMEN LIMITED EXAM: Abdominal Ultrasound, Limited: [...] report is generated using voice recognition reporting (YouScribe). On occasion Scuttledogcribe erroneously drops words from the report or replaces the spoken word with similar sounding words. Please call with any questions/concerns regarding this report.* Dictated and transcribed 07/16/2024/leydi This report has been electronically signed and approved by the interpreting radiologist. Electronically Signed Dipti Lockhart II, M.D. 2024-07-16 10:23:22 Normal Not Available 36on 07-12-2024 36 Left voicemail bob mcnulty to reschedule Inspire follow up appointment to 07/26 at 10:00 am. Normal [facility] Telephoneon 07-12-2024 Telephone [id number] Darrian Leal 1970 F Date Provider Department Center 07/12/2024 PAULINE SANTACRUZ [facility] SLEEP [facility] No family history on file Reason for Visit and Comments: Reschedule [709] Normal [facility] 36on 06-17-2024 36 Rescheduled cancelle d Inspire follow up appointment for 06/26 at 9:00 am. Normal [facility] MR ankle RT wo conon 024 MR ankle RT wo con [facility] Main [place] [address] [place] [address] MRI Report Signed Patient: Mary Leal MR#: [id number] : 1970 Acct:[id number] Age/Sex: 54 / F ADM Date: 04/30/24 Loc: [facility] Room: Type: [facility] Attending Dr: Sade Felix DPM, MS Copies to: Sade Felix DPM, Ordering Provider: Sade Felix DPM, MS Date [...] Andres Bullard M.D.04/30/2024 3:14 PM Dictation Location: [place] [address] Transcribed By: [facility] 04/30/24 1514 Dictated By: Juan MiguelAndres Thorpe DO 04/30/24 1503 Signed By: 04/30/24 1514 Normal [facility] 29on 04-28-2024 29 Encounter addended b y: Dick Mann MD on: 05/07/2024 7:26 PM Actions taken: Charge Capture section accepted [facility] Documentationon 04-17-2024 Documentation [id number] Darrian Leal en 1970 F Date Provider Department Center 04/17/202469792-ROMS, RADHA [facility] No family history on file [facility] Letter (Out)on 04-17-2024 Letter (Out) [id number] Darrian Leal en 1970 F Date [facility] Department [place] 04/17/202433796-WPOYRADHA STARK [facility] Gerardo [facility] No family history on file [facility] DIAGNOSTIC UPPER ENDOSCOPYon 04-12-2024 [facility] Patient Name: Mary Leal Procedure Date: 04/12/2024 11:46 AM Date of : 1970 Admit Type: Outpatient Age: 53 Room: [facility] 3 Gender: Female Note Status: Finalized Attending MD: Milagros Franco MD, PHD, [id number] Procedure: Upper GI endoscopy Attending Participation: I personally performed the entire procedure. Indications: Dysphagia, Heartburn Providers: Milagros Franco MD, PHD (Doctor), Stacie Johns RN (Nurse), Nawaf Pinzon Ribbon Cutter (Ribbon Cutter), AVANI Juarez (Anesthesia Staff) Referring MD: Padmaja Llamas MD, PHD Complications: No immediate complications. Medicines: [...] verified by the physician, the nurse, the medical records receptionist and the composite technician in the procedure room. Mental Status [...] oxygen saturations were monitored continuously. The Endoscope ([id number]) was introduced through the mouth, and advanced [...] examined (more content not included)... LAB, [facility] Radiology Study observation (narrative) [facility] SURG PATH REQUESTon 04-12-20 Case Report [facility] Comment on above: Result Comment: Surg ical Pathology Report Case: [id number] Authorizing Provider: Milagors Franco MD, Collected: 04/12/2024 12:48 PM PhD Ordering Location: Endoscopy Outpatient Care Received: 04/12/2024 12:57 PM [place] Pathologist: Manish Tom MD Specimens: A) - TISSUE, gastric biopsy r/o HP evaluate for eosiniphils (large forceps) B) - TISSUE, GE Junction r/o Barrets (large forceps) Performed By: #### S URGP #### [facility] (DEFAULT) [address] [place] [address] Clinical History Preop Diagnosis: Nebo Grade D esophagitis [K20.80]. Early satiety [R68.81]. Unintentional weight loss [R63.4]. Gastroparesis [K31.84]. Medical History: Gastroesophageal reflux disease. Asthma. Benign essential hypertension. History of colectomy. Gastroparesis. Arthritis. Depression. Migraine. Constipation. [facility] Comment on above: Performed By: #### S URGP #### [facility] (DEFAULT) [address] [place] [address] Gross Description [facility] Comment on above: Result Comment: The [...] dimension. TE 1 Lab Use Only: JobID [id number] Grosser for this case was: Carmen Maradiaga Performed By: #### S URGP #### [facility] (DEFAULT) [address] [place] [address] Microscopic Description A microscopic examination was performed. [facility] Comment on above: Performed By: #### S URGP #### [facility] (DEFAULT) [address] [place] [address] Pathologic Diagnosis [facility] Comment on above: Result Comment: Thomas. Ila cox, biopsy: Active erosive esophagitis. No Helicobacter pylori organisms identified. B. GE junction, biopsy: Gastroesophageal squamocolumnar junctional mucosa with reflux pattern of injury. No Vega's specialized columnar epithelium (intestinal metaplasia) identified. Performed By: #### S URGP #### [facility] (DEFAULT) [address] [place] [address] Professional Interpretation Performed at: [facility] Comment on above: Result Comment: [facility] For Immediate Release [facility] Yes [address] [place] [address] Performed By: #### S URGP #### [facility] (DEFAULT) [address] [place] [address] 36on 04-10-2024 36 Left voicemail to [facility] to schedule Inspire follow up appointment following sleep study on 04/28. Offered 06/05 at 8:30 am or 4:00 pm OR 06/12 at 8:30 am. [facility] Telephoneon 04-10-2024 Telephone [id number] Darrian Leal en 1970 F Date Provider Department Center 04/10/2024 PAULINE SANTACRUZ [facility] SLEEP [facility] No family history on file Reason for Visit and Comments: Appointment [375] [facility] Follow-Upon 04-03-2024 Follow-Up [id number] Darrian Leal en 1970 Date Provider Department [place] 04/03/2024 PAULINE SANTACRUZ [facility] SLEEP [facility] No family history on file Level of Service:41430 IN OFFICE/OUTPATIENT ESTABLISHED MOD MDM 30 MIN Reason for Visit and Comments: Follow-up [548351] - Pt has the Inspire and is here for a follow up. She states it is unbelievable how well it is working for her. She is sleeping through the night, which she hasn't done for years. She is here for a few small adjustments, such as moving it from 6 hours of sleep a night to 8. Normal [facility] CBC AND ELECTRONIC DIFFon Basophils (Bld) [#/Vol] 0.04 10*3/uL Normal 0.00-0.15 [facility] Comment on above: Performed By: #### L [id number] #### [facility] (DEFAULT) [address] [address] Basophils/100 WBC (Bld) 0.6 % Normal [facility] Comment on above: Performed By: #### L AB980 #### [facility] (DEFAULT) [address] [address] DIFF STATUS Electronic Differential Normal [facility] Comment on above: Performed By: #### L AB980 #### [facility] [place] (DEFAULT) [address] [address] Eosinophils (Bld) [#/Vol] 0.08 10*3/uL Normal 0.00-0.42 [facility] Comment on above: Performed By: #### L AB980 #### [facility] (DEFAULT) [address] [address] Eosinophils/100 WBC (Bld) 1.2 % Normal [facility] Comment on above: Performed By: #### L AB980 #### U [facility] (DEFAULT) [address] [address] Hematocrit (Bld) [Volume fraction] 40.1 % Normal 34.9-44.3 [facility] Comment on above: Performed By: #### L AB980 #### U [facility] (DEFAULT) [address] [address] Hemoglobin (Bld) [Mass/Vol] 12.6 g/dL Normal 11.4-15.2 [facility] Comment on above: Performed By: #### L AB980 #### U [facility] (DEFAULT) [address] [place] [address] Immature Grans % 0.5 % Normal [facility] Comment on above: Performed By: #### L AB980 #### [facility] [place] (DEFAULT) [address] [place] [address] Immature Grans Absolute < Normal <=0.08 [facility] Comment on above: Performed By: #### L AB980 #### U [facility] (DEFAULT) [address] [place] [address] Lymphocytes (Bld) [#/Vol] 2.05 10*3/uL Normal 1.16-3.51 [facility] Comment on above: Performed By: #### L AB980 #### [facility] (DEFAULT) [address] [address] Lymphocytes/100 WBC (Bld) 31.6 % Normal [facility] Comment on above: Performed By: #### L AB980 #### [facility] (DEFAULT) [address] [place] [address] MCV (RBC) [Entitic vol] 86.6 fL Normal 79.6-97.7 [facility] Comment on above: Performed By: #### L AB980 #### [facility] (DEFAULT) [address] [address] Mean Cell Hgb 27.2 pg Normal 25.9-33.9 [facility] Comment on above: Performed By: #### L AB980 #### [facility] (DEFAULT) [address] [address] Mean Cell Hgb Conc 31.4 g/dL Normal 31.4-35.9 [facility] Comment on above: Performed By: #### L AB980 #### [facility] (DEFAULT) [address] [place] [address] Monocytes (Bld) [#/Vol] 0.47 10*3/uL Normal 0.22-0.87 [facility] Comment on above: Performed By: #### L AB980 #### [facility] [place] (DEFAULT) [address] [place] [address] Monocytes/100 WBC (Bld) 7.3 % Normal [facility] Comment on above: Performed By: #### L AB980 #### [facility] [place] (DEFAULT) [address] [place] [address] Nucleated RBC 0.0 /100 WBC Normal <=0.2 [facility] Comment on above: Performed By: #### L AB980 #### [facility] [place] (DEFAULT) [address] [address] Platelet mean volume (Bld) [Entitic vol] 9.3 fL Normal 8.5-12.2 [facility] Comment on above: Performed By: #### L AB980 #### [facility] [place] (DEFAULT) [address] [address] Platelets (Bld) [#/Vol] 370 10*3/uL Normal 150-393 [facility] Comment on above: Performed By: #### L AB980 #### [facility] [place] (DEFAULT) [address] [address] RBC (Bld) [#/Vol] 4.63 10*6/uL Normal 3.91-5.04 [facility] Comment on above: Performed By: #### L AB980 #### [facility] (DEFAULT) [address] [place] [address] RBC Distribution 14.0 % Normal 10.8-14.9 [facility] Comment on above: Performed By: #### L AB980 #### [facility] [place] (DEFAULT) [address] [place] [address] Segs + Bands Auto 58.8 % Normal [facility] Comment on above: Performed By: #### L AB980 #### [facility] (DEFAULT) [address] [place] [address] Segs + Bands,Absolute Auto 3.81 K/uL Normal 1.64-7.28 [facility] Comment on above: Performed By: #### L AB980 #### [facility] (DEFAULT) [address] [address] WBC (Bld) [#/Vol] 6.48 10*3/uL Normal 3.99-11.19 [facility] Comment on above: Performed By: #### L AB980 #### U [facility] (DEFAULT) [address] [address] FERRITINon 03-06-2024 Ferritin [Mass/Vol] 9.1 ng/mL Normal 7.3-270.7 [facility] Comment on above: Performed By: #### T SHQR, FERIB #### [facility] (DEFAULT) [address] [address] HEPATIC FUNCTION PANELon Albumin [Mass/Vol] 4.3 g/dL Normal 3.5-5.0 [facility] Comment on above: Performed By: #### H FP, IRBC #### [facility] (DEFAULT) [address] [address] ALP [Catalytic activity/Vol] 87 U/L Normal 32-126 [facility] Comment on above: Performed By: #### H FP, IRBC #### [facility] (DEFAULT) [address] [address] ALT [Catalytic activity/Vol] 28 U/L Normal 9-48 [facility] Comment on above: Performed By: #### H FP, IRBC #### [facility] (DEFAULT) [address] [address] AST [Catalytic activity/Vol] 27 U/L Normal 10-39 [facility] Comment on above: Performed By: #### H FP, IRBC #### [facility] (DEFAULT) [address] [address] Bilirubin [Mass/Vol] 0.4 mg/dL Normal <1.5 [facility] Comment on above: Performed By: #### H PAULO, IRBC #### [facility] (DEFAULT) [address] [address] Bilirubin.indirect [Mass/Vol] 0.1 mg/dL Normal <0.3 [facility] Comment on above: Performed By: #### H PAULO, IRBC #### [facility] (DEFAULT) [address] [address] Protein [Mass/Vol] 6.9 g/dL Normal 6.4-8.3 [facility] Comment on above: Performed By: #### H PAULO, IRBC #### U [facility] (DEFAULT) [address] [address] IRON/IRON BINDING/TRANSFERRI Non 03-06-2024 Iron [Mass/Vol] 55 ug/dL Normal 40-174 [facility] Comment on above: Performed By: #### H PAULO, IRBC #### U [facility] (DEFAULT) [address] [address] Iron Saturation 13 % Low 20-55 [facility] Comment on above: Performed By: #### H PAULO, IRBC #### [facility] (DEFAULT) [address] [address] Total Iron Binding Capacity 440 mcg/dL High 250-425 [facility] Comment on above: Performed By: #### H PAULO, IRBC #### [facility] (DEFAULT) [address] [address] Transferrin [Mass/Vol] 352 mg/dL Normal 200-400 [facility] Comment on above: Performed By: #### H PAULO, IRBC #### [facility] (DEFAULT) [address] [address] MOLECULAR STOOL PARASITE GUEVARA Cindy 03-06-2024 Cryptosporidium Parvum/Hominis By Pcr Negative Normal Negative [facility] Comment on above: Order Comment: Colle ct [...] cure. Performed By: #### S CPBP #### [facility] (DEFAULT) [address] [address] Entamoeba Histolytica By Pcr Negative Normal Negative [facility] Comment on above: Order Comment: Colle ct [...] cure. Performed By: #### S CPBP #### [facility] (DEFAULT) [address] [address] Giardia Lamblia By Pcr Negative Normal Negative [facility] Comment on above: Order Comment: Colle ct [...] Performed By: #### S CPBP #### U [facility] (DEFAULT) [address] [address] TSH W/FT4 REFLEXon 4 TSH 1.986 uIU/mL Normal 0.550-4.780 [facility] Comment on above: Performed By: #### T SHQPRIYA Ellis #### U [facility] (DEFAULT) [address] [address] VITAMIN D (25-HYDROXY,TOTAL) on 03-06-2024 25-OH Vitamin D Total 22.2 ng/mL Low 30.0-100.[address] [facility] Comment on above: Order Comment: Vitam in D values have been shown to be falsely decreased in lipemic samples and should be interpreted with caution. Result Comment: <10 Deficiency 10-29 Insufficiency 30-100 Optimal Level >100 Possible Toxicity Performed By: #### D 25OH #### [facility] (DEFAULT) [address] [place] [address] BACTERIAL VAGINOSIS NAATon 0 02-27-2024 Interpretation and review of laboratory results Normal [facility] Lactobacillus crispatus+gasseri+riri senii + Gardnerella vaginalis + Atopobium vaginae rRNA JOSÉ MIGUEL+probe Ql (Vag fld) Negative Negative for bacterial vaginosis [facility] Lactobacillus crispatus+gasseri+riri senii + Gardnerella vaginalis + Atopobium vaginae rRNA JOSÉ MIGUEL+probe Ql (Vag fld) Negative Normal Negative for bacterial vaginosis [facility] Comment on above: Order Comment: Speci men Type: SWABOrdering Facility: [facility] Address: [address] [place] [address] Performed By: #### B VAMP, CVTV ####[facility] LABCLIA [id number] [address] [place] BETY/TRICHOMONAS NAATon 0 02-27-2024 C. glabrata RNA JOSÉ MIGUEL+probe Ql (Vag fld) Negative Negative for Bety glabrata [facility] Bety sp DNA JOSÉ MIGUEL+probe Ql (Vag fld) Negative Negative for Bety species [facility] Interpretation and review of laboratory results Normal [facility] T. vaginalis DNA JOSÉ MIGUEL+probe Ql (Unsp spec) Negative Negative for Trichomonas vaginalis by amplification [facility] C. glabrata RNA JOSÉ MIGUEL+probe Ql (Vag fld) Negative Normal Negative for Bety glabrata [facility] Comment on above: Order Comment: Speci men Type: SWABOrdering Facility: [facility] Address: [address] [place] [address] Performed By: #### B VAMP, CVTV ####[facility] LABCLIA [id number] [place] [address] [place] Bety sp DNA JOSÉ MIGUEL+probe Ql (Vag fld) Negative Normal Negative for Bety species [facility] Comment on above: Order Comment: Speci men Type: SWABOrdering Facility: [facility] Address: [address] [place] [address] Performed By: #### B VAMP, CVTV ####[facility] LABCLIA [id number] [address] [place] T. vaginalis DNA JOSÉ MIGUEL+probe Ql (Unsp spec) Negative Normal Negative for Trichomonas vaginalis by amplification [facility] Comment on above: Order Comment: Speci men Type: SWABOrdering Facility: [facility] Address: [address] [place] [address] Performed By: #### B VAMP, CVTV ####[facility] LABCLIA [id number] [address] [place] CNOVon 02-27-2024 CNOV Office Visit (SHERON ) MARY LEAL ([id number]) 1970 F Date Time Provider Department 02/27/24 10:00 AM FLOWER LOPEZ During your visit today, we recorded the following information about you: Pulse Blood pressure Weight Height 62/minute 146/93 69.9 kg 1.626 Flower Zhao APRN.PAINT ROLLER 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 She has worked with [employer] rep re: interstim setting, now on program [...] you received about pain medications helpful? Yes Vp [employer] offered:Patient declines OBJECTIVE: BP 146/93 Pulse 62 [...] Clear 4 (more content not included)... Normal [facility] UA DIP, URINE (POC)on 2023 BILIRUBIN UA (POCT) Negative Negative [facility] CLARITY UA (POCT) Clear [facility] COLOR UA (POCT) Yellow [facility] GLUCOSE UA (POCT) Negative Negative mg/dL [facility] Hemoglobin Ql (U) Negative Negative [facility] KETONE UA (POCT) Negative Negative mg/dL [facility] LEUKOCYTES UA (POCT) Negative Negative [facility] NITRITE UA (POCT) Negative Negative [facility] PH UA (POCT) 5.5 4.5 - 8.0 [facility] Protein Ql (U) Negative Negative mg/dL [facility] SPECIFIC GRAVITY UA (POCT) >=1.030 1.005 - 1.030 [facility] UROBILINOGEN UA (POCT) 0.2 Normal E.U./dL [facility] Location:[facility], [address] [place] [address], [address] [place] [address] POINT OF CARE [facility] 29on 02-07-2024 29 Addended by: NATHANAEL MENDOZA on: 02/07/2024 12:01 PM Modules accepted: Orders [facility] Follow-Upon 02-07-2024 Follow-Up [id number] Darrian Leal 1970 F Date Provider Department Center 02/07/2024 PAULINE SANTACRUZ [facility] SLEEP [facility] No family history on file Level of Service:74346 IN OFFICE/OUTPATIENT ESTABLISHED HIGH MDM 40 MIN Reason for Visit and Comments: Follow-up [002442] - Pt is here to activate her Inspire PAP. [facility] Hussain 01-27-2024 CNPN Telephone (GYNMN) MARY LEAL ([id number]) 1970 F Date Time Provider Department 01/27/24 RADHA DUNHAM [place] During your visit today, we recorded the following information about you: Radha Dunham MD 01/27/2024 10:54 AM Signed Car Unloader Resident Telephone Encounter 01/27/2024 10:44 AM Call [...] Discussed with Dr. Mullins, Urogyn fellow physician infection control nurse. Radha Dunham MD Obstetrics and Gynecology, PGY1 [...] Department of Urogynecology and Pelvic Floor Disorders Kelil Adames 03/14/2024 3:14 PM Signed Received fax regarding letter from [employer] stating that on 01/29/24 the patient reported that they felt a zapping sensation in their rectal nerve . Asking that provider answer questions listed on document. Document scanned into [employer] Kelli Seth Sandra K, RN 03/15/2024 11:27 AM Signed Called pt. Verified name/ Verified requested information and form faxed to [employer] @ [phone] Lili Matias RN March 15, 2024 11:27 [...] idiopathic cons (more content not included)... Normal [facility] ANES POSTPROC EVALon 024 ANES POSTPROC EVAL HNO ID: [id number] Author: BONI MURILLO MD Service: ? Author Type: Anesthesiologist Type: Anesthesia Postprocedure Evaluation Filed: 01/26/2024 09:51 Note Text: POST ANESTHESIA EVALUATION NOTE : 1970 Procedure Summary Date: 01/26/24 Room / Location: [address] [facility] Anesthesia Start: 0728 Anesthesia Stop: 0900 Procedures: INSRT NSTIM GENERATOR BLADDER W/ POCKET [...] Vitals Vitals Value Taken Time BP 107/68 01/26/24929 Temp 36 ?C (96.8 ?F) 01/26/24929 Pulse 64 01/26/24929 Resp 16 01/26/24929 SpO2 100 % 01/26/24929 [...] January 26, 2024 TIME: 9:51 AM CSN: [id number] Normal [facility] ANES PRE-OPon 01-26-2024 ANES PRE-OP HNO ID: [id number] Author: BONI MURILLO MD Service: ? Author [...] and consent discussed: yes. Patient / Responsible Libertarian agrees to proceed: yes Patient / Surrogate [...] January 26, 2024 TIME: 7:06 AM CSN: [id number] Normal [facility] BRIEF OP NOTon 01-26-2024 BRIEF OP NOT HNO ID: [id number] Author: SOFIYA MULLINS MD Service: Urogynecology Author Type: Fellow Type: Brief Op Note Filed: 01/26/2024 08:44 Note Text: BRIEF OPERATIVE / PROCEDURE NOTE LOG ID: [id number] Surgery/Procedure Date: 01/26/2024 Incision/Procedure Start Time: 7:54 AM Incision Close/Procedure End Time: 8:36 AM Surgeon(s)/Procedurali st(s) and Experimental Electronics Developer(s): Surgeon(s) and Role: * Pam Wang MD [...] Implant Name Type Inv. Item Serial No. Cupola Melter Helper Lot No. LRB No. Used Action LEAD INTRSTIM MRI 28CM - [id number] Lead LEAD INTRSTIM MRI 28CM [employer] [id number] Left 1 Implanted INTERSTIM X RECHARGE FREE NEUROSTIMULATOR - [id number] Stimulator INTERSTIM X RECHARGE FREE NEUROSTIMULATOR [id number] [employer] Left 1 Implanted Pre-Op/Pre-Procedure Diagnosis: urinary retention, urgency, frequency and nocturia Post-Op/Post-Procedure Diagnosis: same SIGNATURE: Sofiya Mullins MD DATE: January 26, 2024 PATIENT NAME: Mary Leal TIME: 8:42 AM PAGER/CONTACT #: Pager [phone] Normal [facility] HISTORY PHYSICALon HISTORY PHYSICAL HNO ID: [id number] Author: SOFIYA MULLINS MD Service: Urogynecology Author [...] Rfl: , 01/25/2024 at 0900 ARIPiprazole monohydrate (ABILIPETROS MAINTENA) 300 mg sers injection, Inject 300 [...] VTE Prophylaxis/An (more content not included)... Normal [facility] NURSING PROGon 01-26-2024 NURSING PROG HNO ID: [id number] Author: DAI CAMPUZANO, RN Service: Nursing Author Type: Registered Nurse Type: Nursing Progress Note Filed: 01/26/2024 09:51 Note Text: 0923 Paged PACU Resident - Elvis- Could you please place an order for a one time dose of [place] [id number] Paged PACU Resident Elvis- Could you please place an order for a one time dose of her homegoing oxycod[place] prescription? [place] [id number] [facility] NURSING PROG HNO ID: [id number] Author: CATRACHO PIERRE RN Service: ? Author Type: Registered Nurse Type: Nursing Progress Note Filed: 01/26/2024 06:41 Note Text: Nursing Progress Note Topic of Note: Daily Note PATIENT NAME: Mary Leal Patient Location: Main - Periop OR/Main - Periop OR Room: Main - Periop OR (23-37) PAGE SENT: Akiko Wang and Resident aviation metalsmith-Pt in M23-37 Mary Leal will need informed consent and H AND P for surgery this morning. Thanks, Catracho [phone] This note was completed by: Catracho Pierre [facility] OPERATIVE NOon 01-26-2024 OPERATIVE NO HNO ID: [id number] Author: PAM WANG MD Service: Urogynecology Author Type: Physician Type: Operative Report Filed: 01/29/2024 10:50 Note Text: OPERATIVE/PROCEDURE REPORT LOG ID: [id number] Surgery/Procedure Date: 01/26/2024 Incision/Procedure Start Time: 7:54 AM Incision Close/Procedure End Time: 8:36 AM Surgeon(s)/Procedurali st(s) and Experimental Electronics Developer(s): Surgeon(s) and Role: * Pam Wang MD [...] Implant Name Type Inv. Item Serial No. Cupola Melter Helper Lot No. LRB No. Used Action LEAD INTRSTIM MRI 28CM - [id number] Lead LEAD INTRSTIM MRI 28CM [employer] [id number] Left 1 Implanted INTERSTIM X RECHARGE FREE NEUROSTIMULATOR - [id number] Stimulator INTERSTIM X RECHARGE FREE NEUROSTIMULATOR [id number] [employer] Left 1 Implanted Pre-Op/Pre-Procedure Diagnosis: [...] the S3 foramen until the marker was mcfp through the bone. The sacral lead was [...] and impedances (more content not included)... Normal [facility] HISTORY PHYSICALon 4 HISTORY PHYSICAL HNO ID: [id number] Author: MAX MARROQUIN PA-C Service: ? Author Type: Physician Experimental Electronics Developer Type: H&P Filed: 01/25/2024 09:25 Note Text: PREANESTHESIA CONSULT CLINIC TELEHEALTH VISIT SERVICE DATE: 01/25/2024 SERVICE TIME: 9:02 AM Patient has been identified by name and date of : Yes Reason for contact: PACC visit Accompanied by: Self This is a virtual visit using Network Game Interactionhart Zoom Video Visit. It required patient-provider interaction for the medical decision making as documented below. I have communicated my name and active licensure. The patient's identity and physical location were verified at the time of this visit. Either the patient or their legal healthcare representative has been informed of the risks [...] using inspire to get activated 02/07/2024 ) [id number] Score: Age: <65 Sex: female CHF history: No Hypertension history: Yes Stroke/TIA/thromboembo lism history: No Vascular disease history: No Diabetes history: No [id number] Score: 2 ANESTHESIA FINDINGS: Intubation History: No [...] PAST SURGICAL HIST (more content not included)... [facility] (GYNMN) MARY LEAL ([id number]) 1970 F Date Time Provider Department 12/25/23 [...] distance health visit in this department: 10/25/2021 Test Clerk, Nurse Next visit in this department: 01/25/2024 [...] - Fully Assessed Reason for Visit: Question [3597] Prescriptions as of 12/25/2023 - ARIPiprazole monohydrate [...] Status:Closed by STACIE GONZALEZ on 12/25/[address] [facility] BASIC METABOLIC PANLon 12-20 Anion gap [Moles/Vol] 6 mmol/L Normal 5-15 [facility] Comment on above: Performed By: #### B MP #### [facility] ([id number]) [address], [address] [place] [address] Calcium [Mass/Vol] 9.3 mg/dL Normal 8.5-10.5 [facility] Comment on above: Performed By: #### B MP #### [facility] ([id number]) [address], [address] [place] [address] Chloride [Moles/Vol] 105 mmol/L Normal 98-109 [facility] Comment on above: Performed By: #### B MP #### [facility] ([id number]) [address], [address] [place] [address] CO2 [Moles/Vol] 28 mmol/L Normal 22-32 [facility] Comment on above: Performed By: #### B MP #### [facility] ([id number]) [address], [address] [place] [address] Creatinine [Mass/Vol] 0.60 mg/dL Normal 0.40-1.00 [facility] Comment on above: Result Comment: METH OD TRACEABLE TO IDMS STANDARD Performed By: #### B MP #### [facility] ([id number]) [address], [address] [place] [address] eGFR (CKD-EPI) NON-RACE DEPENDENT >90 Normal >59 [facility] Comment on above: Result Comment: Reported eGFR is based on the CKD-EPI 2020 equation that does not use a race coefficient. Performed By: #### B MP #### [facility] ([id number]) [address], [address] [place] [address] Glucose [Mass/Vol] 85 mg/dL Normal 65-99 [facility] Comment on above: Performed By: #### B MP #### [facility] ([id number]) [address] [place] [address] Potassium [Moles/Vol] 4.2 mmol/L Normal 3.5-5.0 [facility] Comment on above: Performed By: #### B MP #### [facility] ([id number]) [address] [place] [address] Sodium [Moles/Vol] 139 mmol/L Normal 134-146 [facility] Comment on above: Performed By: #### B MP #### [facility] ([id number]) [address], [address] [place] [address] Urea nitrogen [Mass/Vol] 14 mg/dL Normal 5-23 [facility] Comment on above: Performed By: #### B MP #### [facility] ([id number]) [address] [place] [address] Basic Metabolic Panelon 12-07 Anion gap [Moles/Vol] 6 mmol/L 5 - 15 mmol/L [facility] Calcium [Mass/Vol] 9.3 mg/dL 8.5 - 10. 5 mg/dL [facility] Chloride [Moles/Vol] 105 mmol/L 98 - 10 9 mmol/L [facility] CO2 [Moles/Vol] 28 mmol/L 22 - 32 mmol/L [facility] Creatinine [Mass/Vol] 0.60 mg/dL 0.40 - 1.00 mg/dL [facility] Comment on above: METHOD TRACEABLE TO [facility] STANDARD eGFR (CKD-EPI)non-race dependent - PINF [facility] Comment on above: Reported eGFR is based on the CKD-EPI 2020 equation that does not use a race coefficient. Glucose [Mass/Vol] 85 mg/dL 65 - 99 mg/dL [facility] Potassium [Moles/Vol] 4.2 mmol/L 3.5 - 5.0 mmol/L [facility] [employer] [facility] Sodium [Moles/Vol] 139 mmol/L 134 - 146 mmol/L [facility] Urea nitrogen [Mass/Vol] 14 mg/dL 5 - 23 mg/dL [facility] [employer] [facility] 36on 12-05-2023 36 Scheduled Inspire activation appointment 02/06 at 9:15 am. [facility] 11-27-2023 CNPN Telephone (WCTRMN) MARY LEAL ([id number]) 1970 F Date Time Provider Department 11/27/23 PAM WANG [facility] During your visit today, we recorded the following information about you: Amber Trimble 11/27/2023 9:32 AM Signed Patient: Mary Leal : 1970 Provider: Pam Wang MD Caller Phone #: [phone] (home) [phone] (cell) Reason for call: boyfriend pulled out [...] PNE stimulator stopped connecting so Kim of [employer] said to remove it. She removed the device yesterday and the site looks fine. She states it worked wonderful for relieving her symptoms, and she has completed her diary for 6 days. Informed I will update Dr. Wang for next steps and if she should schedule a follow up appointment. AMKI Ronquillo Shannon, MD 11/27/2023 4:59 PM Signed [...] urge [N39.41] Order(s):SURGICAL REQUEST - ELECTIVE (06/2020) [[id number]] Order #: [id number]: 1 Prescriptions as of 11/27/2023 - ARIPiprazole [...] Encounter Status:Closed by PAM WANG on 11/27/23 [facility] CNPDianne 11-25-2023 CNPN Telephone (GYNMN) MARY LEAL ([id number]) 1970 F Date Time Provider Department 11/25/23 RADHA DUNHAM GYNMN During your visit today, we recorded the following information about you: Radha Dunham MD 11/25/2023 2:43 PM Signed Car [employer] Resident Telephone Encounter 11/25/2023 2:40 PM Call [...] adequately. Discussed with Dr. Mullins, Urogyn fellow infection control nurse. Radha Dunham MD Obstetrics and Gynecology, PGY1 Allergies As of Date: 11/25/2023 Noted Allergy Reaction RISPERIDONE 07/27/2021 5 - Intolerance Comments: Breast discharge POISON BRENDA EXTRACT 04/06/2023 2 - Rash Date Reviewed: 10/10/2023 Reviewed by: José Luis Thorpe RN - Fully Assessed Reason for Visit: Patient Question [8007] Prescriptions as of 11/25/2023 - ARIPiprazole monohydrate [...] Status:Closed by RADHA DUNHAM on 11/25/23 Normal [facility] hepatobiliary w pharmon 0 11-23-2023 NM hepatobiliary w pharm [place] [address] Nuclear Medicine Report Signed Patient: Mary Leal MR#: [id number] : 1970 Acct:[id number] Age/Sex: 53 / F ADM Date: 11/23/23 Loc: [place] Room: Type: [facility] Attending Dr: Eagle Vazquez DO Copies to: Quinton MigJr hudson DO Paul C Laffay, DO Ordering Provider: Eagle Vazquez DO Date of Service: 11/23/23 NM/NM hepatobiliary w pharm: RUQ pain, Nausea HIDA [...] is 68%. Normal is greater than 40%. NM/OANH hepatobiliary w pharm IMPRESSION: Normal HIDA scan. Impression dictated by: Quinton Melendez Jr., D.O.11/23/2023 11:56 AM Dictation Location: [place] [address] Transcribed By: [facility] 11/23/23 1156 Dictated By: Quinton Melendez Jr, DO 11/23/23 1155 Signed By: 11/23/23 1156 Normal [facility] CNOVon 11-21-2023 CNOV Office Visit (SHERON ) MARY LEAL ([id number]) 1970 F Date Time Provider Department 11/21/23 10:00 AM PAM WANG During your visit today, we recorded the following information about you: Pam Wang MD 11/21/2023 5:03 PM Signed Patient: Mary D. Elvis Date of Service: 11/21/2022 UNIVERSAL PROTOCOL / [...] Voiding dysfunction [N39.8] Order(s):UA DIP, URINE (POC) [[id number]] Order #: [id number]. #:[id number] [] ondansetron orally disintegrating 4 mg tab(s) [...] (GAS RE (more content not included)... Normal [facility] MAMMOGRAM SCREENING TOMOS YNTHESIS BILATERALon 10-31-2023 [...] IS VERY IMPORTANT TO YOUR HEALTH. THE [employer] GUIDELINES RECOMMEND THAT WOMEN 40 [...] cholecystitis by ultrasound. ELECTRONICALLY SIGNED BY: Parish Denny DO Normal Not Available Documentationon 10-12-2023 Documentation [id number] Darrian Leal 1970 F Date Provider Department Center 10/12/2023 [facility] Gerardo Heal No family history on file Normal [facility] CNOVon 10-10-2023 CNOV Office Visit (SHERON ) MARY LEAL ([id number]) 1970 F Date Time Provider Department 10/10/23 [...] PFSH obtained by others. Pam Wang MD Vp Strategic Partnerships offered: Patient declines. OBJECTIVE: BP 102/60 General: [...] would like to move forward with PNE. [employer] packet given to patient today to review. [...] which included preparing to see the patient, [id number] patient care, completing clinical (more content not included)... Normal [facility] XR CHEST 2 VIEWSon 3 XR CHEST 2 VIEWS FINDINGS: Comparison, June 09, 2021. Intervertebral disc space device again identified lower cervical spine. Cardiopericardial silhouette normal. Pulmonary vasculature normal. Lungs clear. IMPRESSION: Impression: No acute cardiopulmonary disease. ELECTRONICALLY SIGNED BY: Angel Strauss MD Normal Not Available Orders Onlyon 09-19-2023 Orders Only [id number] Darrian Leal 1970 F Date Provider Department Center 09/19/2023 [facility] Gerardo Heal No family history on file [facility] MARY LEAL ([id number]) 1970 F Date Time Provider Department 09/12/23 WANG, PAM WHQ During your visit today, we recorded [...] which included preparing to see the patient, [id number] patient care, completing clinical documentation, obtaining and/or [...] call to schedule cystoscopy. Urogynecology [facility] Main provided: Pam Wang Staff Physician, [...] Diagnosis:History of suburethral sling procedure [Z98.890] Order(s):CYSTOSCOPY [facility] [[id number]] Order #: [id number] Prescriptions as of 09/12/2023 - atenolol (TENORMIN) [...] 1,000 (more content not included)... Normal [facility] CNOVon 09-11-2023 CNOV Office Visit (UROSMN ) MARY LEAL ([id number]) 1970 F Date Time Provider Department 09/11/23 11:00 AM JAIRON LAI UROSMEdd During your visit today, we recorded the [...] RN 09/11/2023 11:37 AM Signed [facility] URODYNAMICS [...] allergy: No Females- Is patient : No Vp Strategic Partnerships offered:Patient declines B/O UA: YES DIP: UROFLOWMETRY [...] MD 09/11/2023 1:18 PM Signed [facility] CENTER [...] Jairon Lai MD Referring Provider: PAM WANG [[id number]] Allergies As of Date: 09/11/2023 Noted Allergy [...] subcut (more content not included)... Normal [facility] Orders Onlyon 09-01-2023 Orders Only [id number] Darrian Leal 1970 F Date Provider Department Center 09/01/2023 [facility] Gerardo Heal No family history on file Normal [facility] [place] 08-23-2023 [facility] Telemedicine [id number] Mary Leal 1970 F Date Provider Department Center 08/23/2023 [facility] Gerardo Heal No family history on file Level of Service:03527 IN OFFICE/OUTPATIENT ESTABLISHED MOD MDM 30-39 MIN Normal [facility] Orders Onlyon 08-21-2023 Orders Only [id number] Darrian Leal en 1970 F Date Provider Department Center 08/21/2023 TamiANDREW GIANA [facility] Gerardo Heal No family history on file Normal [facility] BASIC METABOLIC PANELon 10-0 Anion gap [Moles/Vol] 1 mmol/L Low 8-12 [facility] [employer] [facility] Comment on above: Performed By: #### 4 [id number], [id number], [id number], [id number] #### [address] [place] [address] [place] Calcium [Mass/Vol] 9.2 mg/dL Normal 8.4-10.[address] [facility] Comment on above: Performed By: #### 4 [id number], [id number], [id number], [id number] #### [address] [place] [address] [place] Chloride [Moles/Vol] 105 mmol/L Normal 96-109 [facility] [employer] [facility] Comment on above: Performed By: #### 4 [id number], [id number], [id number], [id number] #### [address] [place] [address] [place] CO2 [Moles/Vol] 32 mmol/L High 22-30 [facility] Comment on above: Performed By: #### 4 [id number], [id number], [id number], [id number] #### [address] [place] [address] [place] Creatinine [Mass/Vol] 0.67 mg/dL Normal 0.52-1.04 [facility] [employer] [facility] Comment on above: Performed By: #### 4 [id number], [id number], [id number], [id number] #### [address] [place] [address] [place] GLOMERULAR FILTRATION RATE ML/MIN/1.73 SQ M.PREDICTED >90.0 Normal >=60.0 [facility] Comment on above: Result Comment: eGFR [...] Kidney Int Suppl.2013;3:1-150 Performed By: #### 4 [id number], [id number], [id number], [id number] #### [address] [place] [address] Glucose [Mass/Vol] 104 mg/dL High 65-100 [facility] Comment on above: Performed By: #### 4 [id number], [id number], [id number], [id number] #### [address] [place] [address] Potassium [Moles/Vol] 4.6 mmol/L Normal 3.6-5.1 [facility] Comment on above: Performed By: #### 4 [id number], [id number], [id number], [id number] #### [address] [place] [address] Sodium [Moles/Vol] 138 mmol/L Normal 135-147 [facility] Comment on above: Performed By: #### 4 1074560, [id number], 79634366, [id number] #### [address] [place] [address] Urea nitrogen [Mass/Vol] 16 mg/dL Normal 8-26 [facility] Comment on above: Performed By: #### 4 [id number], [id number], [id number], [id number] #### [address] [address] Basic metabolic panel aka Ch em 8on 08-12-2023 Anion gap [Moles/Vol] 1 mmol/L Low 8 - 12 mmol/L [facility] Calcium [Mass/Vol] 9.2 mg/dL 8.4 - 10. 4 mg/dL [facility] Calcium hydrogen phosphate dihydrate crystals LM Ql (Urine sed) 16 mg/dL 8 - 26 mg/dL [facility] Chloride [Moles/Vol] 105 mmol/L 96 - 10 9 mmol/L [facility] CO2 (BldMV) [Moles/Vol] 32 mmol/L High 22 - 30 mmol/L [facility] Creatinine [Mass/Vol] 0.67 mg/dL 0.52 - 1.04 mg/dL [facility] GFR/1.73 sq M.predicted MDRD (S/P/Bld) [Vol rate/Area] - PINF [facility] Comment on above: eGFR calculation bas [...] 104 mg/dL High 65 - 100 mg/dL [facility] Interpretation and review of laboratory results Abnormal [facility] Potassium [Moles/Vol] 4.6 mmol/L 3.6 - 5.1 mmol/L [facility] Sodium [Moles/Vol] 138 mmol/L 135 - 147 mmol/L [facility] CBC AND DIFFERENTIALon 08-12 ABSOLUTE BASOPHIL 0.0 x10*3/uL Normal 0.0-0.1 [facility] Comment on above: Performed By: #### 4 [id number] #### [address] ABSOLUTE EOSINOPHIL 0.1 x10*3/uL Normal 0.1-0.3 [facility] Comment on above: Performed By: #### 4 [id number] #### [address] ABSOLUTE IMMATURE GRANULOCYTES 0.0 x10*3/uL Normal 0.0-0.1 [facility] Comment on above: Performed By: #### 4 [id number] #### [facility] [address] ABSOLUTE LYMPH 1.6 x10*3/uL Normal 1.2-3.3 [facility] Comment on above: Performed By: #### 4 [id number] #### [address] ABSOLUTE MONO 0.3 x10*3/uL Normal 0.2-0.6 [facility] Comment on above: Performed By: #### 4 [id number] #### [address] ABSOLUTE NEUTROPHIL 3.1 x10*3/uL Normal 2.4-6.6 [facility] Comment on above: Performed By: #### 4 [id number] #### [address] Basophils/100 WBC (Bld) 0.8 % Normal [facility] Comment on above: Performed By: #### 4 [id number] #### [address] Eosinophils/100 WBC (Bld) 2.7 % Normal [facility] Comment on above: Performed By: #### 4 [id number] #### [address] Erythrocyte distribution width (RBC) [Ratio] 13.0 % Normal 11.5-14.5 [facility] Comment on above: Performed By: #### 4 [id number] #### [address] Hematocrit (Bld) [Volume fraction] 37.5 % Normal 33.6-46.8 [facility] Comment on above: Performed By: #### 4 [id number] #### [address] Hemoglobin (Bld) [Mass/Vol] 11.8 g/dL Normal 11.7-15.8 [facility] Comment on above: Performed By: #### 4 [id number] #### [address] Immature granulocytes/100 WBC (Bld) 0.4 % [facility] Comment on above: Performed By: #### 4 [id number] #### [address] Lymphocytes/100 WBC (Bld) 31.5 % Normal [facility] Comment on above: Performed By: #### 4 [id number] #### [address] MCH (RBC) [Entitic mass] 26.5 pg Low 27.5-32.3 [facility] Comment on above: Performed By: #### 4 [id number] #### [address] MCHC (RBC) [Mass/Vol] 31.5 g/dL Normal 30.7-35.5 [facility] Comment on above: Performed By: #### 4 [id number] #### [address] MCV (RBC) [Entitic vol] 84.3 fL Normal 80.2-99 [facility] Comment on above: Performed By: #### 4 [id number] #### [address] Monocytes/100 WBC (Bld) 5.4 % Normal [facility] Comment on above: Performed By: #### 4 [id number] #### [address] Neutrophils/100 WBC (Bld) 59.2 % Normal [facility] Comment on above: Performed By: #### 4 [id number] #### [address] NUCLEATED RED BLOOD CELLS AUTO 0.0 % Normal 0.0-1.0 [facility] Comment on above: Performed By: #### 4 [id number] #### [address] PLATELET COUNT 299 x10*3/uL Normal 150-400 [facility] Comment on above: Performed By: #### 4 [id number] #### [address] RED BLOOD CELL COUNT 4.45 x10*6/uL Normal 3.60-5.20 [facility] Comment on above: Performed By: #### 4 [id number] #### [address] WHITE BLOOD CELLS 5.2 x10*3/uL Normal 4.3-10.3 [facility] Comment on above: Performed By: #### 4 [id number] #### [address] CBC with differentialOrdered By: Background Lab on 08-12-2023 Absolute Immature Granulocytes 0.0 [facility] Age [Time] 84.3 fL 80.2 - 99 fL [facility] Age [Time] 26.5 pg Low 27.5 - 32.3 pg [facility] Age [Time] 31.5 g/dL 30.7 - 35.5 g/dL [facility] B. burgdorferi IgM IB Ql (CSF) 31.5 % [facility] Basophils (Bld) [#/Vol] 0.0 10*3/uL [facility] Basophils/100 WBC (Body fld) 0.8 % [facility] Eosinophils (Bld) [#/Vol] 1.6 10*3/uL [facility] Eosinophils (Bld) [#/Vol] 0.3 10*3/uL [facility] Eosinophils (Bld) [#/Vol] 0.1 10*3/uL [facility] Eosinophils/100 WBC (Bld) 2.7 % [facility] Erythrocyte distribution width (RBC) [Ratio] 13.0 % 11.5 - 14.5 % [facility] Hematocrit (Bld) [Volume fraction] 37.5 % 33.6 - 46.8 % [facility] Hexanoylglycine (U) [Moles/Vol] 11.8 g/dL 11.7 - 15.8 g/dL [facility] Immature granulocytes/100 WBC (Bld) 0.4 % [facility] Interpretation and review of laboratory results Abnormal [facility] Monocytes/100 WBC (Bld) 5.4 % [facility] Neurotensin (P) [Mass/Vol] 59.2 % [facility] Neutrophils (Bld) [#/Vol] 3.1 10*3/uL [facility] Nucleated RBC/100 WBC (Bld) [Ratio] 0.0 % 0.0 - 1.0 % [facility] Platelets (Bld) [#/Vol] 299 10*3/uL [facility] RBC (Bld) [#/Vol] 4.45 10*6/uL [employer] [facility] WBC (Bld) [#/Vol] 5.2 10*3/uL [employer] [facility] CT ABDOMEN PELVIS WITH IV CO NTRASTon [...] 20 RAC Omni 300 100 ml Normal [facility] HEPATIC FUNCTION PANELon Albumin [Mass/Vol] 4.0 g/dL Normal 3.5-5.0 [facility] Comment on above: Performed By: #### 4 [id number], [id number], [id number], [id number] #### [address] [place] [address] [place] ALK PHOS 104 U/L Normal 24-126 [facility] Comment on above: Performed By: #### 4 [id number], [id number], 29996744, [id number] #### [address] [place] [address] [place] ALT [Catalytic activity/Vol] 50 U/L High 4-35 [facility] Comment on above: Performed By: #### 4 6860088, 11014629, 77471740, [id number] #### [address] [place] [address] [place] AST [Catalytic activity/Vol] 59 U/L High 3-47 [facility] Comment on above: Performed By: #### 4 [id number], [id number], 74337192, [id number] #### [address] Bilirubin [Mass/Vol] 0.1 mg/dL Low 0.2-1.6 [facility] Comment on above: Performed By: #### 4 7185328, 06126627, 01089717, [id number] #### [address] Bilirubin.indirect [Mass/Vol] 0.1 mg/dL Normal <=0.5 [facility] Comment on above: Performed By: #### 4 2902050, 70966107, 76488402, [id number] #### [address] Protein [Mass/Vol] 6.6 g/dL Normal 6.3-8.2 [facility] Comment on above: Performed By: #### 4 2526258, [id number], 36263538, [id number] #### [address] Hepatic Function Panelon Albumin (Syn fld) [Mass/Vol] 4.0 g/dL 3.5 - 5.0 g/dL [facility] Aldosterone (U) [Mass/Vol] 104 U/L 24 - 126 U/L [facility] ALT [Catalytic activity/Vol] 50 U/L High 4 - 35 U/L [facility] AST [Catalytic activity/Vol] 59 U/L High 3 - 47 U/L [facility] Bilirubin [Mass/Vol] 0.1 mg/dL Low 0.2 - 1 .6 mg/dL [facility] Bilirubin.conjugated [Mass/Vol] 0.1 mg/dL NINF - 0.5 mg/dL [facility] Protein [Mass/Vol] 6.6 g/dL 6.3 - 8.2 g/dL [facility] LIPASEon 08-12-2023 Lipase [Catalytic activity/Vol] 11 U/L Low 23-300 [facility] Comment on above: Performed By: #### 4 [id number], [id number], 64395501, [id number] #### [address] Lipaseon 08-12-2023 Lipase [Catalytic activity/Vol] 11 U/L Low 23 - 300 U/L [facility] No Panel Informationon 08-12 Extra Tube Hold for add-ons. [facility] Interpretation and review of laboratory results Abnormal [facility] POCT ED/FC/GSC Urine PregOrd ered By: Della Hays on 08-12-2023 Beta HCG ( test) Ql (U) Negative [facility] Interpretation and review of laboratory results Normal [facility] Har[place] Master Acceptable yes [facility] TROPONIN Ion 08-12-2023 Troponin I.cardiac [Mass/Vol] ng/mL Normal <=0.033 [facility] Comment on above: Result Comment: Nega tive: No detectable troponin-I. Performed By: #### 4 [id number] #### [place] [address] [place] TROPONIN I SERIESon 08-12-20 Troponin I.cardiac [Mass/Vol] ng/mL Normal <=0.033 [facility] Comment on above: Result Comment: Nega tive: No detectable troponin-I. Performed By: #### 4 [id number], [id number], [id number], [id number] #### [place] [address] [place] Troponin I (One time)on Interpretation and review of laboratory results Normal [facility] Troponin I.cardiac [Mass/Vol] ng/mL NINF - 0.033 ng/mL [facility] Comment on above: Negative: No detectable troponin-I. [facility] Troponin I - Series (X 3)on 08-12-2023 Interpretation and review of laboratory results Normal [facility] Troponin I.cardiac [Mass/Vol] ng/mL NINF - 0.033 ng/mL [facility] Comment on above: Negative: No detectable troponin-I. [facility] URINALYSIS WITH REFLEX CULTU REon 08-12-2023 Appearance (U) Clear Normal [facility] Comment on above: Performed By: #### 4 [id number] #### [address] BILIRUBIN UA Negative Normal Negative [facility] Comment on above: Performed By: #### 4 [id number] #### [address] Color (U) Yellow Normal [facility] Comment on above: Performed By: #### 4 [id number] #### [address] Glucose Ql (U) Negative Normal Negative [facility] Comment on above: Performed By: #### 4 [id number] #### [address] Ketones Ql (U) Negative Normal Negative [facility] Comment on above: Performed By: #### 4 [id number] #### [address] LEUKOESTERASE Negative Normal Negative [facility] Comment on above: Performed By: #### 4 [id number] #### [address] MUCOUS-URINE Occasional Normal [facility] Comment on above: Performed By: #### 4 [id number] #### [address] Nitrite Ql (U) Negative Normal Negative [facility] Comment on above: Performed By: #### 4 [id number] #### [address] OCCULT BLD Negative Normal Negative [facility] Comment on above: Performed By: #### 4 [id number] #### [address] PH, URINE 5.0 Normal [facility] Comment on above: Performed By: #### 4 [id number] #### [address] Protein Ql (U) Negative Normal Negative [facility] Comment on above: Performed By: #### 4 [id number] #### [address] RBC LM.HPF (Urine sed) [#/Area] /[HPF] Normal <=5 [facility] Comment on above: Performed By: #### 4 [id number] #### [address] SPECIFIC GRAVITY, URINE 1.025 Normal [facility] Comment on above: Performed By: #### 4 6244119 #### [address] SQUAMOUS EPI CELLS 51 /LPF Normal [facility] Comment on above: Performed By: #### 4 [id number] #### [address] UROBILINOGEN UA Negative Normal <2.0 [facility] Comment on above: Performed By: #### 4 [id number] #### [facility] [address] WBC LM.HPF (Urine sed) [#/Area] 2 /[HPF] Normal <=5 [facility] Comment on above: Performed By: #### 4 [id number] #### [facility] [address] Urinalysis complete W Reflex Culture panel (U)on 08-12-2023 Acetone [Mass/Vol] Negative Negative [facility] Appearance (Body fld) Clear [facility] Bilirubin Ql (U) Negative Negative [facility] Color (Stone) Yellow [facility] G6PD (RBC) [Catalytic activity/Vol] Negative Negative [facility] Hemoglobin Ql (U) [facility] Leukocyte esterase Test strip Ql (U) Negative Negative [facility] Mucor racemosus IgE Qn (S) Occasional /LPF [facility] Nitrite Test strip (U) [Mass/Vol] Negative Negative [facility] pH (Migue fld) 5.0 [facility] Protein (U) [Mass/Vol] Negative Negative [facility] [place] IgE Qn (S) Negative Negative [facility] Specific gravity (U) [Rel density] 1.025 [facility] Spherocytes LM Ql (Bld) 51 /LPF [facility] Urobilinogen Qn (U) Negative [facility] - 2.0 [facility] WBC (U) [#/Vol] 2 /uL [facility] CNOVon 07-31-2023 CNOV Office Visit (SHERON ) MARY LEAL ([id number]) 1970 F Date Time Provider Department 07/31/23 2:30 PM NELSY CHÁVEZ During your visit today, we recorded the following information about you: Pulse Blood pressure Weight Height 76/minute 136/96 69.9 kg 1.626 m Nelsy Chávez APRN.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 07/31/2023 5:35 PM Signed Female Pelvic Medicine [...] new Pain: no Abnormal Vaginal Discharge: no INSURANCE FOLLOW UP SPECIALIST 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 She has no history of an abnormal mammogram with cysts on US LMP: No LMP recorded. Patient has had a hysterectomy.; Menopause 3 years ago; hysterectomy in 2015: Menstrual history: NA; Deliveries: I have confirmed and edited as necessary, [facility] by others. Nelsy Chávez APRN.PAINT ROLLER 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 Vp Strategic Partnerships offered: Patient declines. OBJECTIVE: There were no [...] for now d/t side effects Nelsy Chávez APRN.PAINT ROLLER 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 I spent a total of 45 minutes on the date of the service which included preparing to see the patient, trri-ex-gnoe patient care, completing clinical documentation, performing a [...] [R35.0] Nocturia [R35.1] Order(s):UA DIP, URINE (POC) [[id number]] Order #: [id number]. #:[id number] URODYNAMICS [facility] [[id number]] Order #: [id number] Prescriptions as of 07/31/2023 - atenolol (TENORMIN) [...] m (more content not included)... Normal [facility] UA DIP, URINE (POC)on 2022 BILIRUBIN UA (POCT) Negative Negative [facility] CLARITY UA (POCT) Clear [facility] COLOR UA (POCT) Yellow [facility] GLUCOSE UA (POCT) Negative Negative mg/dL [facility] Hemoglobin Ql (U) Negative Negative [facility] KETONE UA (POCT) Negative Negative mg/dL [facility] LEUKOCYTES UA (POCT) Negative Negative [facility] NITRITE UA (POCT) Negative Negative [facility] PH UA (POCT) 5.0 4.5 - 8.0 [facility] Protein Ql (U) Negative Negative mg/dL [facility] SPECIFIC GRAVITY UA (POCT) 1.010 1.005 - 1.030 [facility] UROBILINOGEN UA (POCT) 0.2 E.U./dL Normal E.U./dL [facility] Office Visit (Cardiology)on 06-13-2023 Follow-up visit Diagnoses/Problems Assessed Chest pain (786.50) (R07.9) Elevated troponin (790.6) (R77.8) Fatigue (780.79) (R53.83) Never a smoker Overweight with body mass index (BMI) of 27 to 27.9 in adult (278.02,V85.23) (E66.3,Z68.27) Orders Elevated troponin IO EKG Electrocardiogram- 12 Lead; Status:Active - Perform Order,Retrospective Authorization; Requested for:[id number]; Overweight with body mass index (BMI) of 27 to 27.9 in adult Healthy Weight Tips; Status:Complete - Retrospective Authorization; Done: 13Jun2023 Some eating tips that can help you lose weight.; Status:Complete - Retrospective Authorization; Done: [id number] SocHx: Never a smoker Tobacco Use Screening; Status:Complete; Done: [id number] Patient Instructions Please bring all medicines, vitamins, [...] fourth GI specialist). Last year while in [place] she had similar issues with elevated troponins in the ED and underwent heart catheterization that did not reveal any specific significant disease, details of the discharge summary are reviewed She underwent recent stress perfusion imaging at [facility], the report is reviewed, she [...] disease, will investigate the troponin rise at [facility] however I believe this is likely a non-SD troponin elevation, likely associated with underlying inflammatory [...] negative for complaint. Vitals Vital Signs Recorded: 47Zur0067 10:37AM Heart Rate70, Apical Ojslysbn275, RUE, Sitting Ysggitsbe26, RUE, Sitting Height5 ft 4 in Ftoxdc315 lb BMI Ccajjowjyl80.46 kg/m2 BSA Calculated1.78 Tobacco Useb) No PHQ-2 [...] #1. Lit (more content not included)... Normal [facility] Tobacco Screening.on 023 Adult depression screening assessment No [facility] [address] DO Work Phone: Adult depression screening assessment Yes [facility]ista [facility] [address] DO Work Phone: Adult depression screening assessment Moderate (10-14) [facility] heather [facility] [address] DO Work Phone: Fall risk assessment a) No falls within the last year [facility] [address] DO Work Phone: Tobacco use status CP b) No [facility] 320 DO Work Phone: Tobacco Screening. 1-Several days [facility] 320 DO Work Phone: Tobacco Screening. 3-Nearly every day [facility] 320 DO Work Phone: Tobacco Screening. 0-Not at all [facility] 320 DO Work Phone: Tobacco Screening. Somewhat Difficult [facility] 320 DO Work Phone: STR cardiac stress/lexiscano n 06-09-2023 STR cardiac stress/lexiscan [place] [address] Cardiac Stress Test Signed Patient: Mary Leal MR#: [id number] 863 : 1970 Acct:[id number] Age/Sex: 53 / F ADM Date: 06/05/23 Loc: ER Room: Type: [facility] ER Attending Dr: Copies to: [...] 1550 Signed By: 06/10/23 0903 Normal [facility] NM mirtha perf SPECT rest stron 06-08-2023 NM mirtha perf SPECT rest str [place] [address] Nuclear Medicine Report Signed Patient: Mary Leal MR#: [id number] 863 : 1970 Acct:[id number] Age/Sex: 53 / F ADM Date: 06/05/23 Loc: ER Room: Type: [facility] Attending Dr: Copies to: DO Marielle Soto [...] 06/08/23 1659 Dictated By: Marielle Scruggs MD, [facility] 06/08/23 1540 Signed By: 06/09/23 1532 Normal [facility] Activated partial thrombopla stin time (aPTT) in platelet poor plasma by coagulation aOrdered By: Anibal Valle on 06-05-2023 aPTT Coag (PPP) [Time] 28.0 s 25.1-36.5 [facility] Automated basophil %Ordered By: Anibal Valle on 06-05-2023 Basophils/100 WBC (Bld) 0.4 % Normal . [facility] Comment on above: Performed By: #### H S TROP, BNP, BMP, CBC, PTT, PT #### [address] Automated basophil countOrde red By: Anibal Valle on 06-05-2023 Basophils (Bld) [#/Vol] 0.0 10*3/uL Normal 0.0-0.2 [facility] Comment on above: Result Comment: PERF ORMED BY: [place] [address] PATHOLOGIST [employer] DEVELOPER LEVAR CASE M.D. Performed By: #### H S TROP, BNP, BMP, CBC, PTT, PT #### [address] Automated blood monocyte cou ntOrdered By: Anibal Valle on 06-05-2023 Monocytes (Bld) [#/Vol] 0.3 10*3/uL Normal 0.0-0.8 [facility] Comment on above: Performed By: #### H S TROP, BNP, BMP, CBC, PTT, PT #### [address] Automated eosinophil %Ordere d By: Anibal Valle on 06-05-2023 Eosinophils/100 WBC (Bld) 1.9 % Normal . [facility] Comment on above: Performed By: #### H S TROP, BNP, BMP, CBC, PTT, PT #### [address] Automated eosinophil countOr dered By: Anibal Valle on 06-05-2023 Eosinophils (Bld) [#/Vol] 0.1 10*3/uL Normal 0.0-0.45 [facility] Comment on above: Performed By: #### H S TROP, BNP, BMP, CBC, PTT, PT #### [facility] [address] Automated monocyte %Ordered By: Anibal Valle on 06-05-2023 Monocytes/100 WBC (Bld) 7.5 % Normal . [facility] Comment on above: Performed By: #### H S TROP, BNP, BMP, CBC, PTT, PT #### [facility] [address] Automated neutrophil %Ordere d By: Anibal Valle on 06-05-2023 Neutrophils/100 WBC (Bld) 49.2 % Normal . [facility] Comment on above: Performed By: #### H S TROP, BNP, BMP, CBC, PTT, PT #### [address] BNP ser/plasOrdered By: Anibal Valle on 06-05-2023 Natriuretic peptide B (Bld) [Mass/Vol] 39.0 pg/mL Normal 5-100 [facility] Comment on above: Result Comment: PERF ORMED BY: [place] [address] PATHOLOGIST [employer] DEVELOPER LEVAR CASE M.D. Performed By: #### H S TROP, BNP, BMP, CBC, PTT, PT ####[facility] [place] [address] Basic Metabolic Panelon 073 Creatinine Clr Calc Pharmacy 97.82 Normal [facility] Comment on above: Result Comment: PERF ORMED BY: [place] [address] PATHOLOGIST [employer] SOFTWARE DEVELOPER LEVAR CASE M.D. Performed By: #### H S TROP, BNP, BMP, CBC, PTT, PT #### [address] GFR/1.73 sq M.predicted MDRD (S/P/Bld) [Vol rate/Area] mL/min/{1.73_m2} Normal [facility] Comment on above: Performed By: #### H S TROP, BNP, BMP, CBC, PTT, PT #### [facility] [address] Calcium [Mass/volume] in Ser um or PlasmaOrdered By: Anibal Valle on 06-05-2023 Calcium [Mass/Vol] 9.0 mg/dL Normal 8.6-10.3 [facility] Comment on above: Performed By: #### H S TROP, BNP, BMP, CBC, PTT, PT #### [facility] [address] Carbon dioxide, total [Moles /volume] in Serum or PlasmaOrdered By: Anibal Valle on 06-05-2023 CO2 [Moles/Vol] 23.2 mmol/L Normal 21.0-31.0 [facility] Comment on above: Performed By: #### H S TROP, BNP, BMP, CBC, PTT, PT #### [facility] [address] Chloride [Moles/volume] in S jay or PlasmaOrdered By: Anibal Valle on 06-05-2023 Chloride [Moles/Vol] 108 mmol/L High 98-107 [facility] Comment on above: Performed By: #### H S TROP, BNP, BMP, CBC, PTT, PT #### [facility] [address] Complete Blood Count Auto Di ffon 06-05-2023 Mean Corpuscular HGB Conc 34.5 g/dL Normal 32.0-35.0 [facility] Comment on above: Performed By: #### H S TROP, BNP, BMP, CBC, PTT, PT #### [facility] [address] [place] [address] [place] Monocytes/100 WBC (Bld) 24.18 % High 0.00-20.00 [facility] Comment on above: Result Comment: For adults in ED, MDW > 20.0 may be associated with a higher risk of sepsis during the first 12 hrs of hospital admission Performed By: #### H S TROP, BNP, BMP, CBC, PTT, PT #### [facility] [address] [place] [id number] [facility] NRBC% 0.1 /100{WBC} Normal 0-0.5 [facility] Comment on above: Performed By: #### H S TROP, BNP, BMP, CBC, PTT, PT #### [facility] [address] [place] [id number] [facility] Creatinine [Mass/volume] in Serum or PlasmaOrdered By: Anibal Valle on 06-05-2023 Creatinine [Mass/Vol] 0.67 mg/dL Normal 0.60-1.20 [facility] Comment on above: Performed By: #### H S TROP, BNP, BMP, CBC, PTT, PT #### [facility] [address] [place] [address] ECG 12 lead ECGon 06-05-2023 ECG 12 lead ECG [place] [address] Electrocardiograph Report Signed Patient: Mary Leal MR#: [id number] 863 : 1970 Acct:[id number] Age/Sex: 53 / F ADM Date: 06/05/23 Loc: ER Room: Type: [facility] ER Attending Dr: Ordering Provider: [...] was found Confirmed by ANIBAL VALLE DO ([id number]) on 06/05/2023 4:21:05 PM Referred By: Electronically Signed By:ANIBAL VALLE DO Transcribed By: MUS Signed By Anibal Valle DO 06/05 1621 Normal [facility] ECG 12 lead ECG [facility] [place] [id number] Electrocardiograph Report Signed Patient: Mary Leal MR#: [id number] 863 : 1970 Acct:[id number] Age/Sex: 53 / F ADM Date: 06/05/23 Loc: ER Room: Type: [facility] ER Attending Dr: Ordering Provider: [...] was found Confirmed by ANIBAL VALLE DO ([id number]) on 06/05/2023 4:21:06 PM Referred By: Electronically Signed By:ANIBAL VALLE DO Transcribed By: MUS Signed By Anibal Valle DO 06/05 1621 Normal [facility] Erythrocyte distribution wid th [Ratio] by Automated countOrdered By: Anibal Valle on 06-05-2023 Erythrocyte distribution width (RBC) [Ratio] 13.9 % Normal 11.9-15.3 [facility] Comment on above: Performed By: #### H S TROP, BNP, BMP, CBC, PTT, PT #### [facility] [address] [place] [address] [place] Erythrocytes [#/volume] in B lood by Automated countOrdered By: Anibal Valle on 06-05-2023 RBC (Bld) [#/Vol] 4.29 10*6/uL Normal 3.60-5.00 [facility] Comment on above: Performed By: #### H S TROP, BNP, BMP, CBC, PTT, PT #### [facility] [address] [place] [address] Glucose [Mass/volume] in Ser um or PlasmaOrdered By: Anibal Valle on 06-05-2023 Glucose [Mass/Vol] 106 mg/dL High 70-100 [facility] Comment on above: ADA recommended refe rence rangeRandom Glucose Reference Range is dependent on time and content of last meal. Glucose of more than 200 mg/dL in a nonstressed, ambulatory subject supports the diagnosis of Diabetes Mellitus. Result Comment: [place] om Glucose Reference Range is dependent on time and content of last meal. Glucose of more than 200 mg/dL in a nonstressed, ambulatory subject supports the diagnosis of Diabetes Mellitus. ADA recommended reference range Performed By: #### H S TROP, BNP, BMP, CBC, PTT, PT #### [address] Hematocrit [Volume Fraction] of Blood by Automated countOrdered By: Anibal Valle on 06-05-2023 Hematocrit (Bld) [Volume fraction] 34.4 % Normal 34.0-46.4 [facility] Comment on above: Performed By: #### H S TROP, BNP, BMP, CBC, PTT, PT #### [address] Hemoglobin [Mass/volume] in BloodOrdered By: Anibal Valle on 06-05-2023 Hemoglobin (Bld) [Mass/Vol] 11.9 g/dL Normal 11.8-15.4 [facility] Comment on above: Performed By: #### H S TROP, BNP, BMP, CBC, PTT, PT #### [address] Leukocytes [#/volume] correc herbert for nucleated erythrocytes in Blood by Automated counOrdered By: Anibal Valle on 06-05-2023 WBC corrected for nucl RBC Auto (Bld) [#/Vol] 4.4 10*3/uL 3.8-11.6 [facility] Leukocytes [#/volume] in Blo od by Automated countOrdered By: Anibal Valle on 06-05-2023 WBC (Bld) [#/Vol] 4.4 10*3/uL Normal 3.8-11.6 [facility] Comment on above: Performed By: #### H S TROP, BNP, BMP, CBC, PTT, PT #### [place] [address] [place] Lymphocytes [#/volume] in Bl ood by Automated countOrdered By: Anibal Valle on 06-05-2023 Lymphocytes (Bld) [#/Vol] 1.8 10*3/uL Normal 1.00-4.8 [facility] Comment on above: Performed By: #### H S TROP, BNP, BMP, CBC, PTT, PT #### [facility] [address] Lymphocytes/100 leukocytes i n Blood by Automated countOrdered By: Anibal Valle on 06-05-2023 Lymphocytes/100 WBC (Bld) 41.0 % Normal . [facility] Comment on above: Performed By: #### H S TROP, BNP, BMP, CBC, PTT, PT #### [facility] [address] [place] [address] MCH [Entitic mass] by Automa herbert countOrdered By: Anibal Valle on 06-05-2023 MCH (RBC) [Entitic mass] 27.7 pg Normal 24.7-34.3 [facility] Comment on above: Performed By: #### H S TROP, BNP, BMP, CBC, PTT, PT #### [facility] [address] [place] [address] MCHC Auto (RBC) [Mass/Vol]Or dered By: Anibal Valle on 06-05-2023 MCHC (RBC) [Mass/Vol] 34.5 g/dL 32.0-35.0 [facility] MCV [Entitic volume] by Auto mated countOrdered By: Anibal Valle on 06-05-2023 MCV (RBC) [Entitic vol] 80.2 fL Normal 80-100 [facility] Comment on above: Performed By: #### H S TROP, BNP, BMP, CBC, PTT, PT #### [facility] [address] [place] [address] Monocyte distribution width [Entitic volume] in Blood by AutomatedOrdered By: Anibal Valle on 06-05-2023 Monocyte distribution width Auto (Bld) [Entitic vol] 24.18 % 0.00-20.00 [facility] Comment on above: For adults in ED, MD W > 20.0 may be associated with a higher risk of sepsis during the first 12 hrs of hospital admission Neutrophils [#/volume] in Bl ood by Automated countOrdered By: Anibal Valle on 06-05-2023 Neutrophils (Bld) [#/Vol] 2.2 10*3/uL Normal 1.8-7.7 [facility] Comment on above: Performed By: #### H S TROP, BNP, BMP, CBC, PTT, PT #### [facility] [address] [place] [address] No Panel InformationOrdered By: Anibal Valle on 06-05-2023 Estimated GFR (CKD-EPI) > 60.0 mL/Min [facility] Creatinine Clearance (Chem 97.82 [facility] Nucleated erythrocytes [Pres ence] in Blood by Automated countOrdered By: Anibal Valle on 06-05-2023 Nucleated RBC Auto Ql (Bld) 0.1 /100{WBC} 0-0.5 [facility] Partial Thromboplastin Timeo n 06-05-2023 aPTT Coag (Bld) [Time] 28.0 s Normal 25.1-36.5 [facility] Comment on above: Result Comment: PERF ORMED BY: [place] [address] PATHOLOGIST [employer] DEVELOPER LEVAR CASE M.D. Performed By: #### H S TROP, BNP, BMP, CBC, PTT, PT #### [address] Platelet mean volume [Entiti c volume] in Blood by Automated countOrdered By: Anibal Valle on 06-05-2023 Platelet mean volume (Bld) [Entitic vol] 7.4 fL Normal 6.3-10.7 [facility] Comment on above: Performed By: #### H S TROP, BNP, BMP, CBC, PTT, PT #### [address] Platelet poor plasma interna tional normalized ratio (INR) by coagulation assay (relatOrdered By: Anibal Valle on 06-05-2023 INR Coag (PPP) [Relative time] 1.0 {INR} Normal [facility] Comment on above: INR Therapeutic Rang e [...] TROP, BNP, BMP, CBC, PTT, PT #### [address] Platelets [#/volume] in Bloo d by Automated countOrdered By: Anibal Valle on 06-05-2023 Platelets (Bld) [#/Vol] 336 10*3/uL Normal 150-450 [facility] Comment on above: Performed By: #### H S TROP, BNP, BMP, CBC, PTT, PT #### [address] Potassium [Moles/volume] in Serum or PlasmaOrdered By: Anibal Valle on 06-05-2023 Potassium [Moles/Vol] 3.8 mmol/L Normal 3.5-5.1 [facility] Comment on above: Performed By: #### H S TROP, BNP, BMP, CBC, PTT, PT #### [address] Prothrombin Time INROrdered By: Anibal Valle on 06-05-2023 PT Coag (PPP) [Time] 12.0 s Normal 9.0-12.9 [facility] Comment on above: Performed By: #### H S TROP, BNP, BMP, CBC, PTT, PT #### [place] [id number] [place] Serum or plasma anion gap de terminationOrdered By: Anibal Valle on 06-05-2023 Anion gap [Moles/Vol] 10.6 mmol/L Normal 6.0-15.0 [facility] Comment on above: Performed By: #### H S TROP, BNP, BMP, CBC, PTT, PT #### [facility] [address] Sodium [Moles/volume] in Ser um or PlasmaOrdered By: Anibal Valle on 06-05-2023 Sodium [Moles/Vol] 138 mmol/L Normal 136-145 [facility] Comment on above: Performed By: #### H S TROP, BNP, BMP, CBC, PTT, PT #### [facility] [address] [place] [address] Troponin I High Sensitivityo n 06-05-2023 Troponin I High Sensitivity 2.5 pg/mL Normal 0.0-15.0 [facility] Comment on above: Result Comment: PERF ORMED BY: [place] [address] PATHOLOGIST [employer] SOFTWARE DEVELOPER LEVAR CASE M.D. Performed By: #### H S TROP ####[address] Troponin I High Sensitivity 2.6 pg/mL Normal 0.0-15.0 [facility] Comment on above: Result Comment: PERF ORMED BY: [place] [address] PATHOLOGIST [employer] SOFTWARE DEVELOPER LEVAR CASE M.D. Performed By: #### H S TROP, BNP, BMP, CBC, PTT, PT ####[facility] [id number] [place] [address] Troponin I.cardiac [Mass/vol ume] in Serum or Plasma by Detection limit <= 0.01 ng/Ordered By: Anibal Valle on 06-05-2023 Troponin I.cardiac DL <= 0.01 ng/mL [Mass/Vol] 2.6 pg/mL 0.0-15.0 [facility] Urea nitrogen [Mass/volume] in Serum or PlasmaOrdered By: Anibal Valle on 06-05-2023 Urea nitrogen [Mass/Vol] 10 mg/dL Normal 7-25 [facility] Comment on above: Performed By: #### H S TROP, BNP, BMP, CBC, PTT, PT #### [facility] [address] XR chest 1V portableon 06-05 XR chest 1V portable [facility] [place] [address] [place] [address] XRay Report Signed Patient: Mary Leal MR#: [id number] 863 : 1970 Acct:[id number] Age/Sex: 53 / F ADM Date: 06/05/23 [...] Andres Bullard M.D.06/05/2023 9:53 AM Dictation Location: [place] [address] Transcribed By: [facility] 06/05/23 0953 Dictated By: Andres Bullard DO 06/05/23 0952 Signed By: 06/05/23 0953 Normal [facility] CBC AUTO DIFFon 04-05-2023 BASO # 0.0 103/ul Normal 0.0-0.1 [facility] Comment on above: Performed By: #### L ACT #### [facility] [address] [place] [address] [address] Mirian Velasco Basophils/100 WBC (Bld) 0.8 % Normal 0.2-2.0 [facility] Comment on above: Performed By: #### L ACT #### [facility] [address] [place] [address] [address] Mirian Velasco EO # 0.1 103/ul Normal 0.0-0.7 [facility] Comment on above: Performed By: #### L ACT #### [facility] [address] [place] [address] Dr. Mirian Velasco Eosinophils/100 WBC (Bld) 1.1 % Normal 0.9-7.0 [facility] Comment on above: Performed By: #### L ACT #### [facility] [address] [place] [address] Dr. Mirian Velasco Erythrocyte distribution width (RBC) [Ratio] 13.1 % Normal 11.0-15.0 [facility] Comment on above: Performed By: #### L ACT #### [facility] [address] [place] [address] Dr. Mirian Velasco Hematocrit (Bld) [Volume fraction] 37.6 % Normal 36.0-48.0 [facility] Comment on above: Performed By: #### L ACT #### [facility] [address] [place] [address] Dr. Mirian Velasco Hemoglobin (Bld) [Mass/Vol] 12.4 g/dL Normal 12.0-16.0 [facility] Comment on above: Performed By: #### L ACT #### [facility] [address] [place] [address] Dr. Mirian Velasco IG # 0.01 10e3/ul Normal 0.00-0.03 [facility] Comment on above: Performed By: #### L ACT #### [facility] [address] [place] [address] Dr. Mirian Velasco IG % 0.2 % Normal 0.0-0.5 [facility] Comment on above: Performed By: #### L ACT #### [facility] [address] [place] [address] Dr. Mirian Velasco LYMPH # 2.5 103/ul Normal 1.2-3.8 [facility] Comment on above: Performed By: #### L ACT #### [facility] [address] [place] [address] Dr. Mirian Velasco Lymphocytes/100 WBC (Bld) 46.2 % Normal 20.5-60.0 [facility] Comment on above: Performed By: #### L ACT #### [facility] [address] [place] [address] Dr. Mirian Velasco MANUAL DIFF REQ NO Normal [facility] Comment on above: Performed By: #### L ACT #### [facility] [address] [place] [address] Dr. Mirian Velasco MCH (RBC) [Entitic mass] 27.1 pg Normal 26.7-34.0 [facility] Comment on above: Performed By: #### L ACT #### [facility] [address] [place] [address] Dr. Mirian Velasco MCHC (RBC) [Mass/Vol] 33.0 g/dL Normal 29.9-35.2 [facility] Comment on above: Performed By: #### L ACT #### [facility] [address] [place] [address] Dr. Mirian Velasco MCV (RBC) [Entitic vol] 82.3 fL Normal 81.0-99.0 [facility] Comment on above: Performed By: #### L ACT #### [facility] [address] [place] [address] Dr. Mirian Velasco MONO # 0.4 103/ul Normal 0.3-0.8 [facility] Comment on above: Performed By: #### L ACT #### [facility] [address] [place] [address] Dr. Mirian Velasco Monocytes/100 WBC (Bld) 7.9 % Normal 1.7-12.0 [facility] Comment on above: Performed By: #### L ACT #### [facility] [address] [place] [address] Dr. Mirian Velasco NEUT # 2.3 103/ul Normal 1.4-6.5 [facility] Comment on above: Performed By: #### L ACT #### [facility] [address] [address] [address] Mirian Velasco Neutrophils/100 WBC (Bld) 43.8 % Normal 43.0-75.0 [facility] Comment on above: Performed By: #### L ACT #### [facility] [address] [address] [address] Mirian Velasco Platelet mean volume (Bld) [Entitic vol] 9.2 fL Critically low 9.5-13.5 [facility] Comment on above: Performed By: #### L ACT #### [facility] [address] [address] [address] Mirian Velasco PLT 318 103/ul Normal 150-450 [facility] Comment on above: Performed By: #### L ACT #### [facility] [address] [address] [address] Mirian Velasco RBC 4.57 106/ul Normal 4.20-5.40 [facility] Comment on above: Performed By: #### L ACT #### [facility] [address] [address] [address] Mirian Velasco WBC 5.3 103/ul Normal 4.0-11.0 [facility] Comment on above: Performed By: #### L ACT #### [facility] [address] [address] [address] Mirian Velasco PROF CHEM 8 (BAS METB)on Anion gap [Moles/Vol] 19.0 mmol/L Normal [facility] Comment on above: Performed By: #### H STROPN, BMP ####[facility] [address] [address]Dr. Mirian Velasco Calcium [Mass/Vol] 9.6 mg/dL Normal 8.5-10.1 [facility] Comment on above: Performed By: #### H STROPN, BMP ####[facility] [address] [id number]. Mirian Velasco Chloride [Moles/Vol] 103 mmol/L Normal 98-107 [facility] Comment on above: Performed By: #### H ELENAPN, BMP ####[facility] [address] [id number]. Mirian Velasco CO2 [Moles/Vol] 23.1 mmol/L Normal 21.0-32.0 [facility] Comment on above: Performed By: #### H STROPN, BMP ####[facility] [address] [id number]. Mirian Velasco Creatinine [Mass/Vol] 0.84 mg/dL Normal 0.55-1.02 [facility] Comment on above: Performed By: #### H STROPN, BMP ####[facility] [address] [id number]. Mirian Velasco EGFR-AF DUTCH >60 Normal >=60 [facility] Comment on above: Performed By: #### H STROPN, BMP ####[facility] [address] [address]Dr. Mirian Velasco EGFR-NON AF DUTCH >60 Normal >=60 [facility] Comment on above: Performed By: #### H STROPN, BMP ####[facility] [address] [id number]. Mirian Velasco Glucose [Mass/Vol] 129 mg/dL Critically high 74-106 [facility] Comment on above: Performed By: #### H STROPN, BMP ####[facility] [address] [id number]. Mirian Velasco Potassium [Moles/Vol] 3.1 mmol/L Critically low 3.5-5.1 [facility] Comment on above: Performed By: #### H STROPN, BMP ####[facility] [address] [id number]. Mirian Velasco Sodium [Moles/Vol] 142 mmol/L Normal 136-145 [facility] Comment on above: Performed By: #### H STROPN, BMP ####[facility] [address] [address]Dr. Mriian Velasco Urea nitrogen [Mass/Vol] 12.0 mg/dL Normal 7.0-18.0 [facility] Comment on above: Performed By: #### H FAUSTO, BMP ####[facility] [address] [address]Dr. Mirian Velasco Urea nitrogen/Creatinine [Mass ratio] 14.3 mg/mg Normal [facility] Comment on above: Performed By: #### H FAUSTO, BMP ####[facility] [address] [address]Dr. Mirian Velasco TROPONIN, HIGH SENSITIVITYon 04-05-2023 HSTROP 5.6 pg/mL Normal 4.0-51.3 [facility] Comment on above: Result Comment: CUT- OFF POINTS HAVE BEEN ESTABLISHED BASED ON THE FOURTH UNIVERSAL DEFINITIONS OF MYOCARDIAL INFARCTION. THE UPPER REFERENCE LIMIT (URL) OF TROPONIN, DEFINED THE 99TH PERCENTILE OF cTnI DISTRIBUTION IN A REFERENCE POPULATION, HAS BEEN CONFIRMED THE DECISION THRESHOLD FOR SD DIAGNOSIS. Performed By: #### H FAUSTO, BMP ####[facility] [address] [address]Dr. Mirian Velasco CBC AUTO DIFFon 03-06-2023 BASO # 0.1 103/ul Normal 0.0-0.1 [facility] Comment on above: Performed By: #### L ACT #### [facility] [address] [place] [address] Dr. Mirian Velasco Basophils/100 WBC (Bld) 0.8 % Normal 0.2-2.0 [facility] Comment on above: Performed By: #### L ACT #### [facility] [address] [place] [address] Dr. Mirian Velasco EO # 0.1 103/ul Normal 0.0-0.7 [facility] Comment on above: Performed By: #### L ACT #### [facility] [address] [place] [address] Dr. Mirian Velasco Eosinophils/100 WBC (Bld) 1.4 % Normal 0.9-7.0 [facility] Comment on above: Performed By: #### L ACT #### [facility] [address] [place] [address] Dr. Mirian Velasco Erythrocyte distribution width (RBC) [Ratio] 13.1 % Normal 11.0-15.0 [facility] Comment on above: Performed By: #### L ACT #### [facility] [address] [place] [address] Dr. Mirian Velasco Hematocrit (Bld) [Volume fraction] 37.9 % Normal 36.0-48.0 [facility] Comment on above: Performed By: #### L ACT #### [facility] [address] [place] [address] Dr. Mirian Velasco Hemoglobin (Bld) [Mass/Vol] 12.7 g/dL Normal 12.0-16.0 [facility] Comment on above: Performed By: #### L ACT #### [facility] [address] [place] [address] Dr. Mirian Velasco IG # 0.01 10e3/ul Normal 0.00-0.03 [facility] Comment on above: Performed By: #### L ACT #### [facility] [address] [place] [address] Dr. Mirian Velasco IG % 0.2 % Normal 0.0-0.5 [facility] Comment on above: Performed By: #### L ACT #### [facility] [address] [place] [address] Dr. Mirian Velasco LYMPH # 1.8 103/ul Normal 1.2-3.8 [facility] Comment on above: Performed By: #### L ACT #### [facility] [address] [place] [address] Dr. Mirian Velasco Lymphocytes/100 WBC (Bld) 27.2 % Normal 20.5-60.0 [facility] Comment on above: Performed By: #### L ACT #### [facility] [address] [place] [address] Dr. Mirian Velasco MANUAL DIFF REQ NO Normal [facility] Comment on above: Performed By: #### L ACT #### [facility] [address] [place] [address] Dr. Mirian Velasco MCH (RBC) [Entitic mass] 27.5 pg Normal 26.7-34.0 [facility] Comment on above: Performed By: #### L ACT #### [facility] [address] [address] [address] Mirian Velasco MCHC (RBC) [Mass/Vol] 33.5 g/dL Normal 29.9-35.2 [facility] Comment on above: Performed By: #### L ACT #### [facility] [address] [address] [address] Mirian Velasco MCV (RBC) [Entitic vol] 82.0 fL Normal 81.0-99.0 [facility] Comment on above: Performed By: #### L ACT #### [facility] [address] [address] [address] Mirian Velasco MONO # 0.4 103/ul Normal 0.3-0.8 [facility] Comment on above: Performed By: #### L ACT #### [facility] [address] [address] [address] Mirian Velasco Monocytes/100 WBC (Bld) 5.5 % Normal 1.7-12.0 [facility] Comment on above: Performed By: #### L ACT #### [facility] [address] [address] [address] Mirian Velasco NEUT # 4.3 103/ul Normal 1.4-6.5 [facility] Comment on above: Performed By: #### L ACT #### [facility] [address] [address] [address] Mirian Velasco Neutrophils/100 WBC (Bld) 64.9 % Normal 43.0-75.0 [facility] Comment on above: Performed By: #### L ACT #### [facility] [address] [address] [address] Mirian Velasco Platelet mean volume (Bld) [Entitic vol] 9.4 fL Critically low 9.5-13.5 [facility] Comment on above: Performed By: #### L ACT #### [facility] [address] [address] [address] Mirian Velasco PLT 317 103/ul Normal 150-450 [facility] Comment on above: Performed By: #### L ACT #### [facility] [address] [address] [address] Mirian Velasco RBC 4.62 106/ul Normal 4.20-5.40 [facility] Comment on above: Performed By: #### L ACT #### [facility] [address] [address] [address] Mirian Velasco WBC 6.6 103/ul Normal 4.0-11.0 [facility] Comment on above: Performed By: #### L ACT #### [facility] [address] [address] [address] Mirian Velasco CULTURE BLOODon 03-06-2023 Microscopic examination of blood, culture Culture Observations: NO GROWTH AT 5 DAYS. [facility] Comment on above: Performed By: #### B LDCX2 ####[facility] [address] [address]Dr. Mirian Velasco Microscopic examination of blood, culture Culture Observations: NO GROWTH AT 5 DAYS. [facility] Comment on above: Performed By: #### B LDCX1 #### [facility] [address] [place] [address] Dr. Mirian Velasco LACTATE/LACTIC ACIDon 2022 Lactate [Moles/Vol] 2.2 mmol/L Critically high 0.4-2.0 [facility] Comment on above: Performed By: #### L ACT #### [facility] [address] [place] [address] Dr. Mirian Velasco LIPASEon 03-06-2023 Lipase [Catalytic activity/Vol] 53.0 U/L Critically low 73.0-393.0 [facility] Comment on above: Performed By: #### L ACT #### [facility] [address] [place] [address] Dr. Mirian Velasco PROF 14(COMP METB)on 023 Albumin [Mass/Vol] 3.4 g/dL Normal 3.4-5.0 [facility] Comment on above: Performed By: #### L ACT #### [facility] [address] [address] [address] Mirian Velasco Albumin/Globulin [Mass ratio] 1.0 {ratio} Normal [facility] Comment on above: Performed By: #### L ACT #### [facility] [address] [place] [address] Dr. Mirian Velasco ALP [Catalytic activity/Vol] 123 U/L Critically high 46-116 [facility] Comment on above: Performed By: #### L ACT #### [facility] [address] [address] [address] Mirian Velasco ALT [Catalytic activity/Vol] 33 U/L Normal 14-59 [facility] Comment on above: Performed By: #### L ACT #### [facility] [address] [place] [address] Dr. Mirian Velasco Anion gap [Moles/Vol] 13.1 mmol/L Normal [facility] Comment on above: Performed By: #### L ACT #### [facility] [address] [place] [address] Dr. Mirian Velasco AST [Catalytic activity/Vol] 31 U/L Normal 15-37 [facility] Comment on above: Performed By: #### L ACT #### [facility] [address] [place] [address] Dr. Mirian Velasco Bilirubin [Mass/Vol] 0.3 mg/dL Normal 0.2-1.0 [facility] Comment on above: Performed By: #### L ACT #### [facility] [address] [place] [address] Dr. Mirian Velasco Calcium [Mass/Vol] 8.9 mg/dL Normal 8.5-10.1 [facility] Comment on above: Performed By: #### L ACT #### [facility] [address] [place] [address] Dr. Mirian Velasco Chloride [Moles/Vol] 107 mmol/L Normal 98-107 [facility] Comment on above: Performed By: #### L ACT #### [facility] [address] [place] [address] Dr. Mirian Velasco CO2 [Moles/Vol] 25.6 mmol/L Normal 21.0-32.0 [facility] Comment on above: Performed By: #### L ACT #### [facility] [address] [place] [address] Dr. Mirian Velasco Creatinine [Mass/Vol] 0.70 mg/dL Normal 0.55-1.02 [facility] Comment on above: Performed By: #### L ACT #### [facility] [address] [place] [address] Dr. Mirian Velasco EGFR-AF DUTCH >60 Normal >=60 [facility] Comment on above: Performed By: #### L ACT #### [facility] [address] [address] [address] Mirian Velasco EGFR-NON AF DUTCH >60 Normal >=60 [facility] Comment on above: Performed By: #### L ACT #### [facility] [address] [place] [address] Dr. Mirian Velasco Globulin (S) [Mass/Vol] 3.4 g/dL Normal [facility] Comment on above: Performed By: #### L ACT #### [facility] [address] [place] [address] Dr. Mirian Velasco Glucose [Mass/Vol] 125 mg/dL Critically high 74-106 [facility] Comment on above: Performed By: #### L ACT #### [facility] [address] [place] [address] Dr. Mirian Velasco Potassium [Moles/Vol] 3.7 mmol/L Normal 3.5-5.1 [facility] Comment on above: Performed By: #### L ACT #### [facility] [address] [place] [address] Dr. Mirian Velasco Protein [Mass/Vol] 6.8 g/dL Normal 6.4-8.[address] [facility] Comment on above: Performed By: #### L ACT #### [facility] [address] [place] [address] Dr. Mirian Velasco Sodium [Moles/Vol] 142 mmol/L Normal 136-[address] [facility] Comment on above: Performed By: #### L ACT #### [facility] [address] [place] [address] Dr. Mirian Velasco Urea nitrogen [Mass/Vol] 16.0 mg/dL Normal 7.0-18.0 [facility] Comment on above: Performed By: #### L ACT #### [facility] [address] [address] [address] Mirian Velasco Urea nitrogen/Creatinine [Mass ratio] 22.9 mg/mg Normal [facility] Comment on above: Performed By: #### L ACT #### [facility] [address] [place] [address] Dr. Mirian Velasco PROTIMEon 03-06-2023 INR Coag (PPP) [Relative time] {INR} Normal [facility] Comment on above: Performed By: #### P T #### [facility] [address] [place] [address] Dr. Mirian Velasco INR GUIDELINES SEE BELOW Normal [facility] Comment on above: Result Comment: SAMEER RED INR: 2.0 - 3.0 CONDITIONS NOT LISTED BELOW 2.5 - 3.5 FOR PROSTHETIC HEART VALVE REPLACEMENT 2.5 - 3.5 RECURRENT THROMBOSIS Performed By: #### P T #### [facility] [address] [place] [address] Dr. Mirian Velasco PT Coag (PPP) [Time] 9.8 s Normal 9.0-11.6 [facility] Comment on above: Performed By: #### P T #### [facility] [address] [place] [address] Dr. Mirian Velasco TROPONIN, HIGH SENSITIVITYon 03-06-2023 HSTROP 4.4 pg/mL Normal 4.0-51.3 [facility] Comment on above: Result Comment: CUT- OFF POINTS HAVE BEEN ESTABLISHED BASED ON THE FOURTH UNIVERSAL DEFINITIONS OF MYOCARDIAL INFARCTION. THE UPPER REFERENCE LIMIT (URL) OF TROPONIN, DEFINED THE 99TH PERCENTILE OF cTnI DISTRIBUTION IN A REFERENCE POPULATION, HAS BEEN CONFIRMED THE DECISION THRESHOLD FOR SD DIAGNOSIS. Performed By: #### L ACT #### [facility] [address] [place] [address] Dr. Mirian Velasco Bacteria identified Aer cx N om (Unsp spec)Ordered By: Niecy Duron on 03-02-2023 Superficial Wound Culture Methicillin Resis Staph Aureus [facility] CT LSPINE WO CONon 3 CT LSPINE [...] by: NANCY BELLE Date: 2023-02-19 06:42 Normal [facility] XR ESOPHAGRAMon 12-26-2022 [facility] NURSING PROGon 12-08-2022 NURSING PROG HNO ID: [id number] Author: Lisa Contreras, MAKI Service: Nursing Author Type: Registered Nurse Type: Nursing Progress Note Filed: 12/08/2022 11:28 AM Note Text: [facility] ENDOSCOPY POST PROCEDURE FOLLOW UP CALL [phone] (home) Date Phone Call Made: 12/08/2022 Attempt: [...] more pleasant? No Lisa Contreras RN Normal [facility] ANES POSTPROC EVALon 023 ANES POSTPROC EVAL HNO ID: [id number] Author: Andres Sheets DO Service: Anesthesiology Author Type: Anesthesiologist Type: Anesthesia Postprocedure Evaluation Filed: 12/07/2022 12:44 PM Note Text: POST ANESTHESIA EVALUATION NOTE : 1970 Procedure Summary Date: 12/07/22 Room / Location: [facility] Anesthesia Start: 1034 Anesthesia Stop: 1055 [...] December 07, 2022 TIME: 12:44 PM CSN: [id number] [facility] ANES PRE-OPon 12-07-2022 ANES PRE-OP HNO ID: [id number] Author: Andres Sheets DO Service: Anesthesiology Author Type: Anesthesiologist Type: Anesthesia Preprocedure Evaluation Filed: 12/07/2022 9:42 AM Note Text: ANESTHESIOLOGY DAY OF SURGERY NOTE : 1970 Procedure Information Date/Time: 12/07/22 1030 Scheduled providers: Winston Hannah DO Procedures: EGD - THERAPEUTIC, EUS, OR TUBE INTERVENTIONS PH MONTIEL INSERT OFF MEDS Location: [facility] Estimated body mass index is 24.55 [...] and consent discussed: yes. Patient / Responsible Libertarian agrees to proceed: yes Patient / Surrogate [...] 0920 Temp 36 ?C (96.8 ?F) 12/07/22 0920 SpO2 98 % 12/07/22 0920 Outpatient Medications [...] December 07, 2022 TIME: 9:40 AM CSN: [id number] [facility] HISTORY PHYSICALon HISTORY PHYSICAL HNO ID: [id number] Author: Soraida Mathis PA-C Service: Gastroenterology Author Type: Physician Experimental Electronics Developer Type: HANDP Filed: 12/07/2022 9:48 AM Note [...] PAIN, N/V/D Medication reconciliation list reviewed in [facility]. Past medical history, past surgical history, social history and family history reviewed and updated in [facility]. ALLERGIES Allergies: Risperidone Intolerance Comment:Breast discharge SEE [facility] BP 109/74 Pulse [...] Leal DATE: 12/07/2022 TIME: 9:41 AM Normal [facility] Upper GI endoscopyon 023 Upper GI endoscopy [facility] Gastrointestinal Endoscopy Patient Name: Mary Leal [...] by the physician, the nurse and the medical records receptionist in the pre-procedure area in the endoscopy [...] examined duodenum. - No specimens collected. - Mnotiel was not placed due to severe esophagitis Recommendation: - Discharge patient to home (ambulatory). - Resume previous diet today. - Recommend acid suppression medication indefinitely. - Return to my office as previously scheduled. Procedure Code(s): --- Professional --- 11076, Esophagogastroduodenos copy, flexible, transoral; with dilation of gastric/duodenal stricture(s) (eg, balloon, bougie) Diagnosis Code(s): --- Professional --- K21.00, Gastro-esophageal reflux disease with esophagitis, without bleeding K31.84, Gastroparesis CPT copyright 2020 [employer]. All rights reserved. The codes documented in this report are preliminary and upon certified medical coder review may be revised to meet current compliance requirements. Attending Participation: I personally performed the entire procedure. Scope In: 10:39:12 AM Scope Out: 10:46:13 AM MD Winston Diaz MD 12/07/2022 10 (more content not included)... Normal [facility] ANES POSTPROC EVALon 023 ANES POSTPROC EVAL HNO ID: [id number] Author: Annabel Burton MD Service: Anesthesiology Author Type: Physician Type: Anesthesia Postprocedure Evaluation Filed: 12/05/2022 2:01 PM Note Text: POST ANESTHESIA EVALUATION NOTE : 1970 Procedure Summary Date: 12/05/22 Room / Location: [facility] Anesthesia Start: 900 Anesthesia Stop: 917 Procedure: SIGMOIDOSCOPY Diagnosis: Chronic idiopathic constipation (Constipation) Scheduled Providers: Isar Masters DO Responsible Provider: Annabel Burton MD [...] December 05, 2022 TIME: 2:00 PM CSN: [id number] [facility] ANES PRE-OPon 12-05-2022 ANES PRE-OP HNO ID: [id number] Author: Annabel Burton MD Service: Anesthesiology Author Type: Physician Type: Anesthesia Preprocedure Evaluation Filed: 12/05/2022 8:28 AM Note Text: ANESTHESIOLOGY DAY OF SURGERY NOTE : 1970 Procedure Information Date/Time: 12/05/22 0900 Scheduled providers: Isra Masters DO Procedure: SIGMOIDOSCOPY Location: [facility] Estimated body mass index is 24.55 [...] and consent discussed: yes. Patient / Responsible Libertarian agrees to proceed: yes Patient / Surrogate [...] December 05, 2022 TIME: 8:26 AM CSN: [id number] [facility] Flexible Sigmoidoscopyon Flexible sigmoidoscopy [facility] Gastrointestinal Endoscopy Patient Name: Mary Leal Procedure Date: 12/05/2022 8:55 AM Date of : 1970 Admit Type: Outpatient Age: 52 Room: [address] [address] Gender: Female Note Status: Finalized Attending MD: [...] present medications. Procedure Code(s): --- Professional --- 16967, 52, Sigmoidoscopy, flexible; diagnostic, including collection of specimen(s) by brushing or washing, when performed (separate procedure) Diagnosis Code(s): --- Professional --- K59.00, Constipation, unspecified CPT copyright 2020 [employer]. All rights reserved. The codes documented in this report are preliminary and upon certified medical coder review may be revised to meet current compliance requirements. Attending Participation: I personally performed the entire procedure. Scope In: 9:07:04 AM Scope Out: 9:09:45 AM DO Isra Chen DO 12/05/2022 9:13:05 AM This report has been signed electronically by Isra Masters DO Number of Addenda: 0 Note Initiated On: 12/05/2022 8:55 AM Estimated Blood Loss: Estimated blood loss: none. Normal [facility] HISTORY PHYSICALon HISTORY PHYSICAL HNO ID: [id number] Author: Lashanda Dorado PA-C Service: Gastroenterology Author Type: Physician Experimental Electronics Developer Type: HANDP Filed: 12/05/2022 8:43 AM Note [...] PAIN, N/V/D Medication reconciliation list reviewed in [employer]. Past medical history, past surgical history, social history and family history reviewed and updated in [facility]. ALLERGIES Allergies: Risperidone Intolerance Comment:Breast discharge SEE [facility] There were no [...] Leal DATE: 12/05/2022 TIME: 8:42 AM Normal [facility] NURSING PROGon 12-05-2022 NURSING PROG HNO ID: [id number] Author: Lisa Contreras RN Service: ? Author Type: Registered Nurse Type: Nursing Progress Note Filed: 12/05/2022 1:07 PM Note Text: [facility] ENDOSCOPY PRE PROCEDURE CALL Akiko. I'm calling from [facility] endoscopy to provide you with the information for your surgery/procedure tomorrow. 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 yes When anesthesia or sedation is being given: Patient instructed you must have an adult special education bus driver because you will not be able to work or drive for the rest of the day after your test.yes Can you please confirm the name and relationship of your special education bus driver. tbd What is the best number for your special education bus driver to be reached at tomorrow for updates? tbd Your special education bus driver is allowed to wait here with [...] Do not wear makeup, lotion, or finger comoran. yes Patient instructed: Please bring a list [...] given Any barriers to Patient learning (confusion? Slot Service Specialist needed?): Patient/Patient Try On [place] responded appropriately on phone. If patient needs to reschedule please call: [phone] [facility] phone number: [phone] Type of instruction given: Verbal by telephone contact. Normal [facility] NURSING PROGon 12-02-2022 NURSING PROG HNO ID: [id number] Author: Isra Harman RN Service: ? Author Type: Registered Nurse Type: Nursing Progress Note Filed: 12/02/2022 10:54 AM Note Text: [facility] ENDOSCOPY PRE PROCEDURE CALL Akiko. I'm calling from [facility] endoscopy to provide you with the information for your surgery/procedure tomorrow. 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 yes When anesthesia or sedation is being given: Patient instructed you must have an adult special education bus driver because you will not be able to work or drive for the rest of the day after your test.yes Can you please confirm the name and relationship of your special education bus driver. Rich What is the best number for your special education bus driver to be reached at tomorrow for updates? [phone] Your special education bus driver is allowed to wait here with [...] must be done on Monday.) Did you pickle solution maker your bowel prep pt calling office for [...] Do not wear makeup, lotion, or finger comoran. yes Patient instructed: Please bring a list [...] given Any barriers to Patient learning (confusion? Slot Service Specialist needed?): Patient/Patient Try On Baster responded appropriately on phone. If patient needs to reschedule please call: [phone] [facility] phone number: [phone] Type of instruction given: Verbal by telephone contact. Normal [facility] AMYLASEon 10-20-2022 Amylase [Catalytic activity/Vol] 33 U/L Normal 25-115 [facility] Comment on above: Performed By: #### L ACT #### [facility] [address] [place] [address] Dr. Mirian Velasco CBC AUTO DIFFon 10-20-2022 BASO # 0.0 103/ul Normal 0.0-0.1 [facility] Comment on above: Performed By: #### P T #### [facility] [address] [place] [address] Dr. Mirian Velasco Basophils/100 WBC (Bld) 0.2 % Normal 0.2-2.0 [facility] Comment on above: Performed By: #### P T #### [facility] [address] [address] [address] Mirian Velasco EO # 0.1 103/ul Normal 0.0-0.7 [facility] Comment on above: Performed By: #### P T #### [facility] [address] [place] [address] Dr. Mirian Velasco Eosinophils/100 WBC (Bld) 0.6 % Critically low 0.9-7.0 [facility] Comment on above: Performed By: #### P T #### [facility] [address] [place] [address] Dr. Mirian Velasco Erythrocyte distribution width (RBC) [Ratio] 13.6 % Normal 11.0-15.0 [facility] Comment on above: Performed By: #### P T #### [facility] [address] [place] [address] Dr. Mirian Velasco Hematocrit (Bld) [Volume fraction] 41.0 % Normal 36.0-48.0 [facility] Comment on above: Performed By: #### P T #### [facility] [address] [place] [address] Dr. Mirian Velasco Hemoglobin (Bld) [Mass/Vol] 13.5 g/dL Normal 12.0-16.0 [facility] Comment on above: Performed By: #### P T #### [facility] [address] [place] [address] Dr. Mirian Velasco IG # 0.06 10e3/ul Critically high 0.00-0.03 [facility] Comment on above: Performed By: #### P T #### [facility] [address] [place] [address] Dr. Mirian Velasco IG % 0.4 % Normal 0.0-0.5 [facility] Comment on above: Performed By: #### P T #### [facility] [address] [place] [address] Dr. Mirian Velasco LYMPH # 2.5 103/ul Normal 1.2-3.8 [facility] Comment on above: Performed By: #### P T #### [facility] [address] [place] [address] Dr. Mirian Velasco Lymphocytes/100 WBC (Bld) 17.5 % Critically low 20.5-60.0 [facility] Comment on above: Performed By: #### P T #### [facility] [address] [place] [address] Dr. Mirian Velasco MANUAL DIFF REQ NO Normal [facility] Comment on above: Performed By: #### P T #### [facility] [address] [address] [address] Mirian Velasco MCH (RBC) [Entitic mass] 28.1 pg Normal 26.7-34.0 [facility] Comment on above: Performed By: #### P T #### [facility] [address] [place] [address] Dr. Mirian Velasco MCHC (RBC) [Mass/Vol] 32.9 g/dL Normal 29.9-35.2 [facility] Comment on above: Performed By: #### P T #### [facility] [address] [place] [address] Dr. Mirian Velasco MCV (RBC) [Entitic vol] 85.2 fL Normal 81.0-99.0 [facility] Comment on above: Performed By: #### P T #### [facility] [address] [place] [address] Dr. Mirian Velasco MONO # 0.7 103/ul Normal 0.3-0.8 [facility] Comment on above: Performed By: #### P T #### [facility] [address] [place] [address] Dr. Mirian Velasco Monocytes/100 WBC (Bld) 4.5 % Normal 1.7-12.0 [facility] Comment on above: Performed By: #### P T #### [facility] [address] [place] [address] Dr. Mirian Velasco NEUT # 11.0 103/ul Critically high 1.4-6.5 [facility] Comment on above: Performed By: #### P T #### [facility] [address] [place] [address] Dr. Mirian Velasco Neutrophils/100 WBC (Bld) 76.8 % Critically high 43.0-75.0 [facility] Comment on above: Performed By: #### P T #### [facility] [address] [place] [address] Dr. Mirian Velasco Platelet mean volume (Bld) [Entitic vol] 8.7 fL Critically low 9.5-13.5 [facility] Comment on above: Performed By: #### P T #### [facility] [address] [place], [place] [address] Dr. Mirian Velasco PLT 390 103/ul Normal 150-450 [facility] Comment on above: Performed By: #### P T #### [facility] [address] [place], [place] [address] Dr. Mirian Velasco RBC 4.81 106/ul Normal 4.20-5.40 [facility] Comment on above: Performed By: #### P T #### [facility] [address] [place], [place] [address] Dr. Mirian Velasco WBC 14.3 103/ul Critically high 4.0-11.0 [facility] Comment on above: Performed By: #### P T #### [facility] [address] [address] ABD/PELV W CONon [...] by: SALMA AMEZQUITA Date: 2022-10-20 12:35 Normal [facility] CULTURE BLOODon 10-20-2022 Microscopic examination of blood, culture Culture Observations: NO GROWTH AT 5 DAYS. Normal [facility] Comment on above: Performed By: #### B LDCX2 ####[facility] [id number] [address]Dr. Mirian Velasco Microscopic examination of blood, culture Culture Observations: NO GROWTH AT 5 DAYS. Normal [facility] Comment on above: Performed By: #### B LDCX1 #### [facility] [address] [place] [address] Dr. 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 NO POTENTIAL PATHOGENS SEEN. Normal [facility] Comment on above: Performed By: #### U RCX #### [facility] [address] [place] [address] Dr. Mirian Velasco ER URINE PROFILEon 2 Bilirubin Ql (U) Negative Normal NEGATIVE [facility] Comment on above: Performed By: #### P T #### [facility] [address] [place] [address] Dr. Mirian Velasco Clarity (U) CLEAR Normal CLEAR [facility] Comment on above: Performed By: #### P T #### [facility] [address] [place] [address] Dr. Mirina Velasco Color (U) LT. YELLOW Normal YELLOW [facility] Comment on above: Performed By: #### P T #### [facility] [address] [place] [address] Dr. Mirian Velasco ERUAHD A micrscopic examination will be performed if indicated. Normal [facility] Comment on above: Performed By: #### P T #### [facility] [address] [place] [address] Dr. Mirian Velasco Glucose Ql (U) Negative Normal NEGATIVE [facility] Comment on above: Performed By: #### P T #### [facility] [address] [place] [address] Dr. Mirian Velasco Hemoglobin Ql (U) Negative Normal NEGATIVE [facility] Comment on above: Performed By: #### P T #### [facility] [address] [place] [address] Dr. Mirian Velasco Ketones Ql (U) Negative Normal NEGATIVE [facility] Comment on above: Performed By: #### P T #### [facility] [address] [place] [address] Dr. Mirian Velasco LEUKOCYTES SMALL Abnormal NEGATIVE [facility] Comment on above: Performed By: #### P T #### [facility] [address] [place] [address] Dr. Mirian Velasco Nitrite Ql (U) Negative Normal NEGATIVE [facility] Comment on above: Performed By: #### P T #### [facility] [address] [place] [address] Dr. Mirian Velasco pH (U) 7.0 [pH] Normal 5-9 [facility] Comment on above: Performed By: #### P T #### [facility] [address] [place] [address] Dr. Mirian Velasco SPEC GRAVITY 1.015 Normal 1.005-<=1.025 [facility] Comment on above: Performed By: #### P T #### [facility] [address] [place] [address] Dr. Mirian Velasco UA PROTEIN Negative Normal NEGATIVE/ TRACE [facility] Comment on above: Performed By: #### P T #### [facility] [address] [place] [address] Dr. Mirian Velasco UR MICRO IND INDICATED Normal [facility] Comment on above: Performed By: #### P T #### [facility] [address] [place] [address] Dr. Mirian Velasco Urobilinogen Qn (U) 0.2 {Lyubov'U}/dL Normal 0.2 - 1. 0 [facility] Comment on above: Performed By: #### P T #### [facility] [address] [place] [address] Dr. Mirian Velasco LACTATE/LACTIC ACIDon 2021 Lactate [Moles/Vol] 1.3 mmol/L Normal 0.4-1.9 [facility] Comment on above: Performed By: #### L ACT #### [facility] [address] [place] [address] Dr. Mirian Velasco LIPASEon 10-20-2022 Lipase [Catalytic activity/Vol] 49.0 U/L Critically low 73.0-393.0 [facility] Comment on above: Performed By: #### P T #### [facility] [address] [place] [address] Dr. Mirian Velasco PROF 14(COMP METB)on 022 Albumin [Mass/Vol] 3.2 g/dL Critically low 3.4-5.0 [facility] Comment on above: Performed By: #### P T #### [facility] [address] [place] [address] Dr. Mirian Velasco Albumin/Globulin [Mass ratio] 0.9 {ratio} Normal [facility] Comment on above: Performed By: #### P T #### [facility] [address] [place] [address] Dr. Mirian Velasco ALP [Catalytic activity/Vol] 129 U/L Critically high 46-116 [facility] Comment on above: Performed By: #### P T #### [facility] [address] [place] [address] Dr. Mirian Velasco ALT [Catalytic activity/Vol] 25 U/L Normal 14-59 [facility] Comment on above: Performed By: #### P T #### [facility] [address] [place] [address] Dr. Mirian Velasco Anion gap [Moles/Vol] 10.7 mmol/L Normal [facility] Comment on above: Performed By: #### P T #### [facility] [address] [place] [address] Dr. Mirian Velasco AST [Catalytic activity/Vol] 20 U/L Normal 15-37 [facility] Comment on above: Performed By: #### P T #### [facility] [address] [address] [address] Mirian Velasco Bilirubin [Mass/Vol] 0.5 mg/dL Normal 0.2-1.0 [facility] Comment on above: Performed By: #### P T #### [facility] [address] [address] [address] Mirian Velasco Calcium [Mass/Vol] 9.2 mg/dL Normal 8.5-10.1 [facility] Comment on above: Performed By: #### P T #### [facility] [address] [place] [address] Dr. Mirian Velasco Chloride [Moles/Vol] 102 mmol/L Normal 98-107 [facility] Comment on above: Performed By: #### P T #### [facility] [address] [address] [address] Mirian Velasco CO2 [Moles/Vol] 30.0 mmol/L Normal 21.0-32.0 [facility] Comment on above: Performed By: #### P T #### [facility] [address] [place] [address] Dr. Mirian Velasco Creatinine [Mass/Vol] 0.68 mg/dL Normal 0.55-1.02 [facility] Comment on above: Performed By: #### P T #### [facility] [address] [place] [address] Dr. Mirian Velasco EGFR-AF DUTCH >60 Normal >=60 [facility] Comment on above: Performed By: #### P T #### [facility] [address] [address] [address] Mirian Velasco EGFR-NON AF DUTCH >60 Normal >=60 [facility] Comment on above: Performed By: #### P T #### [facility] [address] [place] [address] Dr. Mirian Velasco Globulin (S) [Mass/Vol] 3.7 g/dL Normal [facility] Comment on above: Performed By: #### P T #### [facility] [address] [address] [address] Mirian Velasco Glucose [Mass/Vol] 109 mg/dL Critically high 74-106 [facility] Comment on above: Performed By: #### P T #### [facility] [address] [address] [address] Mirian Velasco Potassium [Moles/Vol] 3.7 mmol/L Normal 3.5-5.1 [facility] Comment on above: Performed By: #### P T #### [facility] [address] [address] [address] Mirian Velasco Protein [Mass/Vol] 6.9 g/dL Normal 6.4-8.2 [facility] Comment on above: Performed By: #### P T #### [facility] [address] [place] [address] Dr. Mirian Velasco Sodium [Moles/Vol] 139 mmol/L Normal 136-145 [facility] Comment on above: Performed By: #### P T #### [facility] [address] [address] [address] Mirian Velasco Urea nitrogen [Mass/Vol] 13.0 mg/dL Normal 7.0-18.0 [facility] Comment on above: Performed By: #### P T #### [facility] [address] [address] [address] Mirian Velasco Urea nitrogen/Creatinine [Mass ratio] 19.1 mg/mg Normal [facility] Comment on above: Performed By: #### P T #### [facility] [address] [address] [address] Mirian Velasco URINE MICROSCOPIC ONLYon BACTERIA TRACE Abnormal NONE SEEN [facility] Comment on above: Performed By: #### P T #### [facility] [address] [address] [address] Mirian Velasco Bacteria identified Cx Nom (U) INDICATED Normal [facility] Comment on above: Performed By: #### P T #### [facility] [address] [address] [address] Mirian Vleasco CAST NONE SEEN Normal NONE SEEN [facility] Comment on above: Performed By: #### P T #### [facility] [address] [address] [address] Mirian Velasco Crystals LM Nom (Urine sed) NONE SEEN Normal NONE SEEN [facility] Comment on above: Performed By: #### P T #### [facility] [address] [address] [address] Mirian Velasco Epithelial cells LM Ql (Urine sed) MODERATE Abnormal NONE SEEN /RARE [facility] Comment on above: Performed By: #### P T #### [facility] [address] [place] [address] Dr. Mirian Velasoc MUCOUS NONE SEEN Normal NONE SEEN [facility] Comment on above: Performed By: #### P T #### [facility] [address] [place] [address] Dr. Mirian Velasco RBC NONE SEEN Abnormal 0-2 [facility] Comment on above: Performed By: #### P T #### [facility] [address] [address] [address] Mirian Velasco WBC 2-5 Abnormal NONE SEEN [facility] Comment on above: Performed By: #### P T #### [facility] [address] [place] [address] Dr. Mirian Velasco YEAST PRESENT Abnormal NONE SEEN [facility] Comment on above: Result Comment: RARE BUDDING YEAST Performed By: #### P T #### [facility] [address] [place] [address] Dr. Mirian Velasco POINT OF CARE GLUCOSEon 10-06 Glucose [Mass/Vol] 131 mg/dL Critically high 74-106 [facility] Comment on above: Performed By: #### P OCGLUC ####[facility] [address] [address]Dr. Mirian Velasco Glucose [Mass/Vol] 113 mg/dL Critically high 74-106 [facility] Comment on above: Performed By: #### P OCGLUC ####[facility] [address] [place], [place] [address]MtDr. Mirian Velasco XR FOOT RT 2Von 10-17-2022 [...] NICKI DACOSTA Date: 2022-10-17 18:04 Normal [facility] Covid-19 PCR (CVDTB)on SARS-CoV-2 (COVID-19) RNA JOSÉ MIGUEL+probe Ql (Unsp spec) Not detected Normal NOT DETECTED [facility] Comment on above: Result Comment: This test is not yet approved or cleared by the [place] FDA. When there are no FDA-approved or cleared tests available, and other criteria are met, FDA can make tests available under an emergency access mechanism called an Emergency Use Authorization (EUA). The EUA for this test is supported by the [place] of Health and Human Service's (HHS's) declaration [...] consistent with SARS-CoV-2. Performed By: #### [facility] #### [facility] [address] [place], [place] [address] Dr. Mirian Velasco Diagnostic Mammogram, Unilat eral [...] VERY IMPORTANT TO YOUR HEALTH. THE CURRENT [place] [employer] GUIDELINES RECOMMENDS ANNUAL MAMMOGRAPHY BEGINNING AT AGE 40 THIS FACILITY USES A REMINDER SYSTEM TO ENSURE ALL PATIENTS RECEIVE REMINDER NOTIFICATIONS AT THE APPROPRIATE TIME BASED ON THE RECOMMENDATIONS OF THIS EXAM. Board Certified Radiologist. Accredited by the ACR and FDA. Report reported and signed by Dawna Lizarraga on 09/28/2022 1307 Normal [facility] Texture Artist CBC AUTO DIFFon 09-26-2022 BASO # 0.1 103/ul Normal 0.0-0.1 [facility] Comment on above: Performed By: #### L ACT #### [facility] [address] [place] [address] Dr. Mirian Velasco Basophils/100 WBC (Bld) 0.8 % Normal 0.2-2.0 [facility] Comment on above: Performed By: #### L ACT #### [facility] [address] [place] [address] Dr. Mirian Velasco EO # 0.1 103/ul Normal 0.0-0.7 [facility] Comment on above: Performed By: #### L ACT #### [facility] [address] [address] [address] Mirian Velasco Eosinophils/100 WBC (Bld) 1.5 % Normal 0.9-7.0 [facility] Comment on above: Performed By: #### L ACT #### [facility] [address] [place] [address] Dr. Mirian Velasco Erythrocyte distribution width (RBC) [Ratio] 13.4 % Normal 11.0-15.0 [facility] Comment on above: Performed By: #### L ACT #### [facility] [address] [place] [address] Dr. Mirian Velasco Hematocrit (Bld) [Volume fraction] 41.3 % Normal 36.0-48.0 [facility] Comment on above: Performed By: #### L ACT #### [facility] [address] [address] [address] Mirian Velasco Hemoglobin (Bld) [Mass/Vol] 13.4 g/dL Normal 12.0-16.0 [facility] Comment on above: Performed By: #### L ACT #### [facility] [address] [address] [address] Mirian Velasco IG # 0.04 10e3/ul Critically high 0.00-0.03 [facility] Comment on above: Performed By: #### L ACT #### [facility] [address] [place] [address] Dr. Mirian Velasco IG % 0.5 % Normal 0.0-0.5 [facility] Comment on above: Performed By: #### L ACT #### [facility] [address] [place] [address] Dr. Mirian Velasco LYMPH # 2.5 103/ul Normal 1.2-3.8 [facility] Comment on above: Performed By: #### L ACT #### [facility] [address] [place] [address] Dr. Mirian Velasco Lymphocytes/100 WBC (Bld) 27.7 % Normal 20.5-60.0 [facility] Comment on above: Performed By: #### L ACT #### [facility] [address] [place] [address] Dr. Mirian Velasco MANUAL DIFF REQ NO Normal [facility] Comment on above: Performed By: #### L ACT #### [facility] [address] [place] [address] Dr. Mirian Velasco MCH (RBC) [Entitic mass] 27.6 pg Normal 26.7-34.0 [facility] Comment on above: Performed By: #### L ACT #### [facility] [address] [place] [address] Dr. Mirian Velasco MCHC (RBC) [Mass/Vol] 32.4 g/dL Normal 29.9-35.2 [facility] Comment on above: Performed By: #### L ACT #### [facility] [address] [address] [address] Mirian Velasco MCV (RBC) [Entitic vol] 85.0 fL Normal 81.0-99.0 [facility] Comment on above: Performed By: #### L ACT #### [facility] [address] [address] [address] Mirian Velasco MONO # 0.6 103/ul Normal 0.3-0.8 [facility] Comment on above: Performed By: #### L ACT #### [facility] [address] [address] [address] Mirian Velasco Monocytes/100 WBC (Bld) 6.9 % Normal 1.7-12.0 [facility] Comment on above: Performed By: #### L ACT #### [facility] [address] [address] [address] Mirian Velasco NEUT # 5.6 103/ul Normal 1.4-6.5 [facility] Comment on above: Performed By: #### L ACT #### [facility] [address] [place] [address] Dr. Mirian Velasco Neutrophils/100 WBC (Bld) 62.6 % Normal 43.0-75.0 [facility] Comment on above: Performed By: #### L ACT #### [facility] [address] [address] [address] Mirian Velasco Platelet mean volume (Bld) [Entitic vol] 8.6 fL Critically low 9.5-13.5 [facility] Comment on above: Performed By: #### L ACT #### [facility] [address] [address] [address] Mirian Velasco PLT 372 103/ul Normal 150-450 [facility] Comment on above: Performed By: #### L ACT #### [facility] [address] [address] [address] Mirian Velasco RBC 4.86 106/ul Normal 4.20-5.40 [facility] Comment on above: Performed By: #### L ACT #### [facility] [address] [address] [address] Mirian Velasco WBC 8.9 103/ul Normal 4.0-11.0 [facility] Comment on above: Performed By: #### L ACT #### [facility] [address] [address] [address] Mirian eVlasco PROF CHEM 8 (BAS METB)on Anion gap [Moles/Vol] 8.0 mmol/L Normal [facility] Comment on above: Performed By: #### P T #### [facility] [address] [address] [address] Mirian Velasco Calcium [Mass/Vol] 9.0 mg/dL Normal 8.5-10.1 [facility] Comment on above: Performed By: #### P T #### [facility] [facility] [address] [place] [address] Dr. Mirian Velasco Chloride [Moles/Vol] 106 mmol/L Normal 98-107 [facility] Comment on above: Performed By: #### P T #### [facility] [address] [place] [address] Dr. Mirian Velasco CO2 [Moles/Vol] 30.3 mmol/L Normal 21.0-32.0 [facility] Comment on above: Performed By: #### P T #### [facility] [address] [place] [address] Dr. Mirian Velasco Creatinine [Mass/Vol] 0.71 mg/dL Normal 0.55-1.02 [facility] Comment on above: Performed By: #### P T #### [facility] [address] [place] [address] Dr. Mirian Velasco EGFR-AF DUTCH >60 Normal >=60 [facility] Comment on above: Performed By: #### P T #### [facility] [address] [place] [address] Dr. Mirian Velasco EGFR-NON AF DUTCH >60 Normal >=60 [facility] Comment on above: Performed By: #### P T #### [facility] [address] [place] [address] Dr. Mirian Velasco Glucose [Mass/Vol] 81 mg/dL Normal 74-106 [facility] Comment on above: Performed By: #### P T #### [facility] [address] [address] [address] Mirian Velasco Potassium [Moles/Vol] 4.3 mmol/L Normal 3.5-5.1 [facility] Comment on above: Performed By: #### P T #### [facility] [address] [address] [address] Mirian Velasco Sodium [Moles/Vol] 140 mmol/L Normal 136-145 [facility] Comment on above: Performed By: #### P T #### [facility] [address] [address] [address] Mirian Velasco Urea nitrogen [Mass/Vol] 16.0 mg/dL Normal 7.0-18.0 [facility] Comment on above: Performed By: #### P T #### [facility] [address] [address] [address] Mirian Velasco Urea nitrogen/Creatinine [Mass ratio] 22.5 mg/mg Normal [facility] Comment on above: Performed By: #### P T #### [facility] [address] [address] [address] Mirian Velasco C reactive protein [Mass/vol ume] in Serum or PlasmaOrdered By: Beto Snyder on 09-22-2022 CRP [Mass/Vol] 0.6 mg/dL 0.0-1.0 [facility] C-Reactive Proteinon 022 C-Reactive Protein 0.6 mg/dL Normal 0.0-1.0 mg/dL [facility] Other Erythrocyte Sedimentation Ra lian 09-22-2022 ESR (Bld) [Velocity] 4 mm/h Normal 0-29 [facility] man[facility] Other Erythrocyte sedimentation ra te by Photometric methodOrdered By: Beto Snyder on 09-22-2022 ESR Photometric method (Bld) [Velocity] 4 mm/hr 0-29 [facility] Serum nuclear antibody titer Ordered By: Beto Snyder on 09-22-2022 Nuclear Ab (S) [Titer] Negative . [facility] Comment on above: Negative <1:80 Julio jasso 1:80 Positive >1:80ICAP nomenclature: AC-0For more information about Hep-2 cell patterns useMA[facility]patterns.org, the official website for theInternational Consensus on Antinuclear Antibody ([place]UYITA)Patterns (ICAP).Performed at: [facility] [address] [id number] Director: Erick Neville PhD, Phone: [phone] Serum or plasma rheumatoid f actor measurement (units/volume)Ordered By: Beto Snyder on 09-22-2022 Rheumatoid factor Qn [IU]/mL <14.0 [facility] Comment on above: Performed at: [facility] [address] [id number] Director: Erick Neville PhD, Phone: [phone] Serum or plasma thyroxine (T 4) measurement (mass/volume)Ordered By: Beto Snyder on 09-22-2022 T4 [Mass/Vol] 9.82 ug/dL 5.39-11.82 [facility] Serum or plasma uric acid me asurement (mass/volume)Ordered By: Beto Snyder on 09-22-2022 Urate [Mass/Vol] 4.2 mg/dL 2.6-7.2 [facility] TSH DL <= 0.005 mIU/L QnOrde red By: Beto Snyder on 09-22-2022 TSH Qn 1.98 m[IU]/L 0.45-5.33 [facility] Thyroid Stimulating Hormoneo n 09-22-2022 TSH Qn 1.54600396311 m[IU]/L Normal 0.45-5 .33 u[iU]/mL [facility] Other Thyroxine (T4) Totalon 09-22 Thyroxine (T4) Total 9.82 ug/dL Normal 5.39-11 .82 ug/dL [facility] Other Uric Acidon 09-22-2022 Urate [Mass/Vol] 4.1635698 mg/dL Normal 2.6-7.2 mg/dL [place] [facility] Other XR knee BI 2Von 09-22-2022 XR knee BI 2V [facility] Other XR knee BI 2V [facility] Other XR knee BI 2V [address] [place] [address] [employer] Other XR knee BI 2V [place], [place] [id number] [place] [address] [employer] Other XR knee BI 2V XRay Report [facility] Other XR knee BI 2V Signed [facility] Other XR knee BI 2V Patient: Darrian Leal Zoya MR#: [id number] [place] [facility] Other XR knee BI 2V 863 [facility] Other XR knee BI 2V : 1970 Acct:[id number] [facility] Other XR knee BI 2V Age/Sex: 52 / F ADM Date: 09/22/22 [facility] Other XR knee BI 2V Loc: [facility] Room: Type : [facility] Other XR knee BI 2V Attending Dr: Beto Snyder MD [facility] Other XR knee BI 2V Copies to: Beto Snyder MD [facility] Other XR knee BI 2V Ordering Provider: Beto Snyder MD [facility] Other XR knee BI 2V Date of Service: 09/22/22 [facility] Other XR knee BI 2V XR/XR knee BI 2V: Knee pain [facility] Other XR knee BI 2V XR knee BI 2V 09/22/2022 9:23 AM [facility] Other XR knee BI 2V SIGNS AND SYMPTOMS: Bilateral knee pain right greater than left [facility] Other XR knee BI 2V PROTOCOL: Frontal an d lateral radiographs of the bilateral knees [facility] Other XR knee BI 2V COMPARISON: None [facility] Other XR knee BI 2V FINDINGS: [facility] Other XR knee BI 2V There is evidence of prior ACL repair in the left knee with mild narrowing of the weightbearing [facility] Other XR knee BI 2V joint spaces on the left. The joint spaces are otherwise preserved. There is no fracture or [facility] Other XR knee BI 2V dislocation. No join t effusion or soft tissue swelling. [facility] Other XR knee BI 2V XR/XR knee BI 2V [facility] Other XR knee BI 2V IMPRESSION: [employer] Other XR knee BI 2V Status post ACL repa ir on the left. [facility] Other XR knee BI 2V Mild degenerative changes are noted in the weightbearing joint spaces of the left. [facility] Other XR knee BI 2V No acute bony injury. [facility] Other XR knee BI 2V Impression dictated by: Rajiv Garcia M.D.09/22/2022 2:17 PM [facility] Other XR knee BI 2V Dictation Location: [place] [address] [facility] Other XR knee BI 2V Transcribed By: MARIO 09/22/22 1417 [facility] Other XR knee BI 2V Dictated By: Rajiv Garcia II, MD 09/22/22 1415 [facility] Other XR knee BI 2V Signed By: [facility] Other XR knee BI 2V 09/22/22 1417 [facility] Other XR shoulder BI min 2Von 11- XR shoulder BI min 2V XR/XR shoulder BI min 2V: Shoulder pain [facility] Other XR shoulder BI min 2V XR shoulder BI min 2V 09/22/2022 9:23 AM [facility] Other XR shoulder BI min 2V SIGNS AND SYMPTOMS : Bilateral shoulder pain with limited range of motion [facility] Other XR shoulder BI min 2V PROTOCOL: Frontal, Grashey, scapular Y, and axillary views of the bilateral shoulders [facility] Other XR shoulder BI min 2V COMPARISON: 02/26/2018 [facility] Other XR shoulder BI min 2V There has been bon y resorption of the lateral margin of the clavicle on the right suggesting [facility] Other XR shoulder BI min 2V osteomyelitis is w hich may be degenerative or traumatic. Mild hypertrophy of the AC joint is noted. [facility] Other XR shoulder BI min 2V The glenohumeral j oint is preserved on the right. There is subcortical sclerosis greater tuberosity [facility] Other XR shoulder BI min 2V of the right suggesting underlying rotator cuff abnormalities. This is new when compared to the [facility] Other XR shoulder BI min 2V prior exam. The visualized right hemithorax is grossly intact. [facility] Other XR shoulder BI min 2V There is mild hypertrophy of the left acromioclavicular joint. There is mild subcortical sclerosis [facility] Other XR shoulder BI min 2V of the greater tuberosity in the left suggesting underlying rotator cuff abnormalities. The [facility] Other XR shoulder BI min 2V glenohumeral joint is preserved. There is no fracture or dislocation. Visualized left hemithorax is [facility] Other XR shoulder BI min 2V grossly intact. [facility] Other XR shoulder BI min 2V There is partial visualization of intervertebral disc arthroplasty is noted within the lower [facility] Other XR shoulder BI min 2V cervical spine. 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 CURRENT [employer] GUIDELINES RECOMMENDS ANNUAL MAMMOGRAPHY BEGINNING AT AGE 42. THIS FACILITY USUALLY USES A REMINDER SYSTEM TO ENSURE ALL POSITIONS RECEIVED REMINDER NOTIFICATIONS AT THE TIME BASED ON THE RECOMMENDATIONS OF THIS EXAM. 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 Mirian Velasco CBC AUTO DIFFon 04-17-2022 BASO # 0.1 103/ul Normal 0.0-0.1 [facility] Comment on above: Performed By: #### L ACT #### [facility] [address] [address] [address] Mirian Velasco Basophils/100 WBC (Bld) 1.0 % Normal 0.2-2.0 [facility] Comment on above: Performed By: #### L ACT #### [facility] [address] [place] [address] Dr. Mirian Velasco EO # 0.2 103/ul Normal 0.0-0.7 [facility] Comment on above: Performed By: #### L ACT #### [facility] [address] [place] [address] Dr. Mirian Velasco Eosinophils/100 WBC (Bld) 3.3 % Normal 0.9-7.0 [facility] Comment on above: Performed By: #### L ACT #### [facility] [address] [place] [address] Dr. Mirian Velasco Erythrocyte distribution width (RBC) [Ratio] 12.0 % Normal 11.0-15.0 [facility] Comment on above: Performed By: #### L ACT #### [facility] [address] [place] [address] Dr. Mirian Velasco Hematocrit (Bld) [Volume fraction] 37.3 % Normal 36.0-48.0 [facility] Comment on above: Performed By: #### L ACT #### [facility] [address] [place] [address] Dr. Mirian Velasco Hemoglobin (Bld) [Mass/Vol] 12.1 g/dL Normal 12.0-16.0 [facility] Comment on above: Performed By: #### L ACT #### [facility] [address] [place] [address] Dr. Mirian Velasco IG # 0.03 10e3/ul Normal 0.00-0.03 [facility] Comment on above: Performed By: #### L ACT #### [facility] [address] [place] [address] Dr. Mirian Velasco IG % 0.4 % Normal 0.0-0.5 [facility] Comment on above: Performed By: #### L ACT #### [facility] [address] [place] [address] Dr. Mirian Velasco LYMPH # 1.8 103/ul Normal 1.2-3.8 [facility] Comment on above: Performed By: #### L ACT #### [facility] [address] [address] [address] Mirian Velasco Lymphocytes/100 WBC (Bld) 25.2 % Normal 20.5-60.0 [facility] Comment on above: Performed By: #### L ACT #### [facility] [address] [place] [address] Dr. Mirian Velasco MANUAL DIFF REQ NO Normal [facility] Comment on above: Performed By: #### L ACT #### [facility] [address] [address] [address] Mirian Velasco MCH (RBC) [Entitic mass] 29.0 pg Normal 26.7-34.0 [facility] Comment on above: Performed By: #### L ACT #### [facility] [address] [place] [address] Dr. Mirian Velasco MCHC (RBC) [Mass/Vol] 32.4 g/dL Normal 29.9-35.2 [facility] Comment on above: Performed By: #### L ACT #### [facility] [address] [place] [address] Dr. Mirian Velasco MCV (RBC) [Entitic vol] 89.4 fL Normal 81.0-99.0 [facility] Comment on above: Performed By: #### L ACT #### [facility] [address] [place] [address] Dr. Mirian Velasco MONO # 0.4 103/ul Normal 0.3-0.8 [facility] Comment on above: Performed By: #### L ACT #### [facility] [address] [place] [address] Dr. Mirian Velasco Monocytes/100 WBC (Bld) 5.8 % Normal 1.7-12.0 [facility] Comment on above: Performed By: #### L ACT #### [facility] [address] [place] [address] Dr. Mirian Velasco NEUT # 4.6 103/ul Normal 1.4-6.5 [facility] Comment on above: Performed By: #### L ACT #### [facility] [address] [place] [address] Dr. Mirian Velasco Neutrophils/100 WBC (Bld) 64.3 % Normal 43.0-75.0 [facility] Comment on above: Performed By: #### L ACT #### [facility] [address] [address] [address] Mirian Velasco Platelet mean volume (Bld) [Entitic vol] 8.6 fL Critically low 9.5-13.5 [facility] Comment on above: Performed By: #### L ACT #### [facility] [address] [address] [address] Mirian Velasco PLT 597 103/ul Critically high 150-450 [facility] Comment on above: Performed By: #### L ACT #### [facility] [address] [address] [address] Mirian Velasco RBC 4.17 106/ul Critically low 4.20-5.40 [facility] Comment on above: Performed By: #### L ACT #### [facility] [address] [address] [address] Mirian Velasco WBC 7.2 103/ul Normal 4.0-11.0 [facility] Comment on above: Performed By: #### L ACT #### [facility] [address] [address] [address] ABD/PELVIS WO CONon [...] LORRI TRIPLETT Date: 2022-04-17 11:19 Normal [facility] ER URINE PROFILEon 2 Bilirubin Ql (U) Negative Normal NEGATIVE [facility] Comment on above: Performed By: #### P T #### [facility] [address] [place] [address] Dr. Mirian Velasco Clarity (U) CLEAR Normal CLEAR [facility] Comment on above: Performed By: #### P T #### [facility] [address] [place] [address] Dr. Mirian Velasco Color (U) YELLOW Normal YELLOW [facility] Comment on above: Performed By: #### P T #### [facility] [address] [place] [address] Dr. Mirian Velasco ERURAVI A micrscopic examination will be performed if indicated. Normal [facility] Comment on above: Performed By: #### P T #### [facility] [address] [place] [address] Dr. Mirian Velasco Glucose Ql (U) Negative Normal NEGATIVE [facility] Comment on above: Performed By: #### P T #### [facility] [address] [place] [address] Dr. Mirian Velasco Hemoglobin Ql (U) Negative Normal NEGATIVE [facility] Comment on above: Performed By: #### P T #### [facility] [address] [place] [address] Dr. Mirian Velasco Ketones Ql (U) Negative Normal NEGATIVE [facility] Comment on above: Performed By: #### P T #### [facility] [address] [place] [address] Dr. Mirian Velasco LEUKOCYTES Negative Normal NEGATIVE [facility] Comment on above: Performed By: #### P T #### [facility] [address] [place] [address] Dr. Mirian Velasco Nitrite Ql (U) Negative Normal NEGATIVE [facility] Comment on above: Performed By: #### P T #### [facility] [address] [place] [address] Dr. Mirian Velasco pH (U) 5.5 [pH] Normal 5-9 [facility] Comment on above: Performed By: #### P T #### [facility] [address] [place] [address] Dr. Mirian Velasco SPEC GRAVITY >=1.030 Abnormal 1.005-<=1.025 [facility] Comment on above: Performed By: #### P T #### [facility] [address] [place] [address] Dr. Mirian Velasco UA PROTEIN Negative Normal NEGATIVE/ TRACE [facility] Comment on above: Performed By: #### P T #### [facility] [address] [place] [address] Dr. Mirian Velasco UR MICRO IND NOT INDICATED Normal [facility] Comment on above: Performed By: #### P T #### [facility] [address] [place] [address] Dr. Mirian Velasco Urobilinogen Qn (U) 0.2 {Lyubov'U}/dL Normal 0.2 - 1. 0 [facility] Comment on above: Performed By: #### P T #### [facility] [address] [place] [address] Dr. Mirian Velasco LIPASEon 04-17-2022 Lipase [Catalytic activity/Vol] 117.0 U/L Normal 73.0-393.0 [facility] Comment on above: Performed By: #### P T #### [facility] [address] [place] [address] Dr. Mirian Velasco PROF 14(COMP METB)on 022 Albumin [Mass/Vol] 3.5 g/dL Normal 3.4-5.0 [facility] Comment on above: Performed By: #### P T #### [facility] [address] [place] [address] Dr. Mirian Velasco Albumin/Globulin [Mass ratio] 0.9 {ratio} Normal [facility] Comment on above: Performed By: #### P T #### [facility] [address] [place] [address] Dr. Mirian Velasco ALP [Catalytic activity/Vol] 237 U/L Critically high 46-116 [facility] Comment on above: Performed By: #### P T #### [facility] [address] [place] [address] Dr. Mirian Velasco ALT [Catalytic activity/Vol] 53 U/L Normal 14-59 [facility] Comment on above: Performed By: #### P T #### [facility] [address] [place] [address] Dr. Mirian Velsaco Anion gap [Moles/Vol] 11.0 mmol/L Normal [facility] Comment on above: Performed By: #### P T #### [facility] [address] [place] [address] Dr. Mirian Velasco AST [Catalytic activity/Vol] 45 U/L Critically high 15-37 [facility] Comment on above: Performed By: #### P T #### [facility] [address] [place] [address] Dr. Mirian Velasco Bilirubin [Mass/Vol] 0.2 mg/dL Normal 0.2-1.0 [facility] Comment on above: Performed By: #### P T #### [facility] [address] [place] [address] Dr. Mirian Velasco Calcium [Mass/Vol] 9.3 mg/dL Normal 8.5-10.1 [facility] Comment on above: Performed By: #### P T #### [facility] [address] [place] [address] Dr. Mirian Velasco Chloride [Moles/Vol] 105 mmol/L Normal 98-107 [facility] Comment on above: Performed By: #### P T #### [facility] [address] [place] [address] Dr. Mirian Velasco CO2 [Moles/Vol] 29.5 mmol/L Normal 21.0-32.0 [facility] Comment on above: Performed By: #### P T #### [facility] [address] [place] [address] Dr. Mirian Velasco Creatinine [Mass/Vol] 0.69 mg/dL Normal 0.55-1.02 [facility] Comment on above: Performed By: #### P T #### [facility] [address] [place] [address] Dr. Mirian Velasco EGFR-AF DUTCH >110 Normal >=60 [facility] Comment on above: Performed By: #### P T #### [facility] [address] [place] [address] Dr. Mirian Velasco EGFR-NON AF DUTCH >90 Normal >=60 [facility] Comment on above: Performed By: #### P T #### [facility] [address] [place] [address] Dr. Mirian Velasco Globulin (S) [Mass/Vol] 4.0 g/dL Normal [facility] Comment on above: Performed By: #### P T #### [facility] [address] [place] [address] Dr. Mirian Velasco Glucose [Mass/Vol] 107 mg/dL Critically high 74-106 [facility] Comment on above: Performed By: #### P T #### [facility] [address] [place] [address] Dr. Mirian Velasco Potassium [Moles/Vol] 4.5 mmol/L Normal 3.5-5.1 [facility] Comment on above: Performed By: #### P T #### [facility] [address] [place], [place] [address] Dr. Mirian Velasco Protein [Mass/Vol] 7.5 g/dL Normal 6.4-8.2 [facility] Comment on above: Performed By: #### P T #### [facility] [address] [place], [place] [address] Dr. Mirian Velasco Sodium [Moles/Vol] 141 mmol/L Normal 136-145 [facility] Comment on above: Performed By: #### P T #### [facility] [address] [address] [address] Mirian Velasco Urea nitrogen [Mass/Vol] 11.0 mg/dL Normal 7.0-18.0 [facility] Comment on above: Performed By: #### P T #### [facility] [address] [address] [address] Mirian Velasco Urea nitrogen/Creatinine [Mass ratio] 15.9 mg/mg Normal [facility] Comment on above: Performed By: #### P T #### [facility] [address] [address] [address] Mirian Velasco XR CHEST 1 Von 04-17-2022 XR CHEST 1 V EXAM: Chest x-ray HISTORY: Pain. COMPARISON: 02/20/2022 TECHNIQUE: AP portable upright view of the chest. FINDINGS: Heart and Vascularity are unremarkable. Lungs are free of focal infiltrates. No effusions are noted. Impression: No acute heart or lung disease identified. Electronically authenticated by: NICKI BUTT Date: 2022-04-17 11:03 Normal [facility] Basic metabolic 2000 panelon 04-05-2022 Anion gap [Moles/Vol] 13 mmol/L Normal 9-18 [facility] Comment on above: Order Comment: Speci men Type: BLOOD SPECIMEN Ordering Facility: [facility] Address: [address] [place] [address] Performed By: #### 5 8410-2 #### [facility] CLIA [id number] [place] [address] [place] Calcium [Mass/Vol] 9.0 mg/dL Normal 8.5-10.2 [facility] Comment on above: Order Comment: Speci men Type: BLOOD SPECIMEN Ordering Facility: [facility] Address: [address] [place] [address] Performed By: #### 5 8410-2 #### [facility] CLIA [id number] [address] [place] [address] [place] Chloride [Moles/Vol] 104 mmol/L Normal 97-105 [facility] Comment on above: Order Comment: Speci men Type: BLOOD SPECIMEN Ordering Facility: [facility] Address: [address] [place] [address] Performed By: #### 5 8410-2 #### [facility] CLIA [id number] [address] [place] [address] [place] CO2 [Moles/Vol] 25 mmol/L Normal 22-30 [facility] Comment on above: Order Comment: Speci men Type: BLOOD SPECIMEN Ordering Facility: [facility] Address: [address] [place] [address] Performed By: #### 5 8410-2 #### [facility] CLIA [id number] [address] [place] [address] [place] Creatinine [Mass/Vol] 0.65 mg/dL Normal 0.58-0.96 [facility] Comment on above: Order Comment: Speci men Type: BLOOD SPECIMEN Ordering Facility: [facility] Address: [address] [place] [address] Performed By: #### 5 8410-2 #### [facility] CLIA [id number] [address] [place] [address] [place] ESTIMATED GLOMERULAR FILTRATION RATE 108 mL/min/1.73m??? Normal >=60 [facility] Comment on above: Order Comment: Speci men Type: BLOOD SPECIMEN Ordering Facility: [facility] Address: [address] [place] [address] Result Comment: Mary mated Glomerular Filtration Rate [...] #### 5 8410-2 #### [facility] CLIA [id number] [address] [place] [address] [place] Glucose [Mass/Vol] 109 mg/dL High 74-99 [facility] Comment on above: Order Comment: Leanne terry Type: BLOOD SPECIMEN Ordering Facility: [facility] Address: [address] [place] [address] Result Comment: The [place] [employer] (ADA) provides guidance for cutoff [...] Standards of Medical Care in Diabetes 2016, [place] [employer]. Diabetes Care. 2016.39(Suppl 1). Performed By: #### 5 8410-2 #### [facility] CLIA [id number] [address] [place] [address] [place] Potassium [Moles/Vol] 3.9 mmol/L Normal 3.7-5.1 [facility] Comment on above: Order Comment: Leanne terry Type: BLOOD SPECIMEN Ordering Facility: [facility] Address: [address] [id number] Performed By: #### 5 8410-2 #### [facility] CLIA [id number] [address] [place] [address] [place] Sodium [Moles/Vol] 142 mmol/L Normal 136-144 [facility] Comment on above: Order Comment: Leanne terry Type: BLOOD SPECIMEN Ordering Facility: [facility] Address: [address] [address] Performed By: #### 5 8410-2 #### [facility] CLIA [id number] [address] [place] [address] [place] Urea nitrogen [Mass/Vol] 7 mg/dL Normal 7-21 [facility] Comment on above: Order Comment: Speci men Type: BLOOD SPECIMEN Ordering Facility: [facility] Address: [address] [place] [address] Performed By: #### 5 8410-2 #### [facility] CLIA [id number] [address] [place] [address] [place] CBC W Auto Differential pane l (Bld)on 04-05-2022 Basophils (Bld) [#/Vol] 0.05 10*3/uL Normal <0.11 [facility] Comment on above: Order Comment: Speci men Type: BLOOD SPECIMENOrdering Facility: [facility] Address: [address] [place] [address] Performed By: #### B MP #### [place] [phone] Basophils/100 WBC (Bld) 0.7 % Normal [facility] Comment on above: Order Comment: Speci men Type: BLOOD SPECIMENOrdering Facility: [facility] Address: [address] [place] [address] Performed By: #### B MP #### [phone] Differential cell count method Nom (Bld) Auto Normal [facility] Comment on above: Order Comment: Speci men Type: BLOOD SPECIMENOrdering Facility: [facility] Address: [address] [place] [address] Performed By: #### B MP #### [place] [id number] Eosinophils (Bld) [#/Vol] 0.55 10*3/uL High <0.46 [facility] Comment on above: Order Comment: Speci men Type: BLOOD SPECIMENOrdering Facility: [facility] Address: [address] [address] Performed By: #### B MP #### [address] Eosinophils/100 WBC (Bld) 8.2 % Normal [facility] Comment on above: Order Comment: Speci men Type: BLOOD SPECIMENOrdering Facility: [facility] Address: [address] [place] [address] Performed By: #### B MP #### [address] Erythrocyte distribution width (RBC) [Ratio] 12.8 % Normal 11.5-15.0 [facility] Comment on above: Order Comment: Speci men Type: BLOOD SPECIMENOrdering Facility: [facility] Address: [address] [place] [address] Performed By: #### B MP #### [address] Hematocrit (Bld) [Volume fraction] 31.1 % Low 36.0-46.0 [facility] Comment on above: Order Comment: Speci men Type: BLOOD SPECIMENOrdering Facility: [facility] Address: [address] [place] [address] Performed By: #### B MP #### [address] Hemoglobin (Bld) [Mass/Vol] 10.5 g/dL Low 11.5-15.5 [facility] Comment on above: Order Comment: Speci men Type: BLOOD SPECIMENOrdering Facility: [facility] Address: [address] [place] [address] Performed By: #### B MP #### [place] [id number] IMMATURE GRAN % 0.4 % Normal [facility] Comment on above: Order Comment: Speci men Type: BLOOD SPECIMENOrdering Facility: [facility] Address: [address] [place] [address] Performed By: #### B MP #### [place] [address] IMMATURE GRAN ABS 0.03 k/uL Normal <0.10 [facility] Comment on above: Order Comment: Speci men Type: BLOOD SPECIMENOrdering Facility: [facility] Address: [address] [place] [address] Performed By: #### B MP #### [place] [phone] Lymphocytes (Bld) [#/Vol] 1.47 10*3/uL Normal 1.00-4.00 [facility] Comment on above: Order Comment: Speci men Type: BLOOD SPECIMENOrdering Facility: [facility] Address: [address] [place] [address] Performed By: #### B MP #### [phone] Lymphocytes/100 WBC (Bld) 22.0 % Normal [facility] Comment on above: Order Comment: Speci men Type: BLOOD SPECIMENOrdering Facility: [facility] Address: [address] [place] [address] Performed By: #### B MP #### [phone] MCH (RBC) [Entitic mass] 29.9 pg Normal 26.0-34.0 [facility] Comment on above: Order Comment: Speci men Type: BLOOD SPECIMENOrdering Facility: [facility] Address: [address] [place] [address] Performed By: #### B MP #### [place] [id number] MCHC (RBC) [Mass/Vol] 33.8 g/dL Normal 30.5-36.0 [facility] Comment on above: Order Comment: Speci men Type: BLOOD SPECIMENOrdering Facility: [facility] Address: [address] [place] [address] Performed By: #### B MP #### [place] [phone] MCV (RBC) [Entitic vol] 88.6 fL Normal 80.0-100.0 [facility] Comment on above: Order Comment: Speci men Type: BLOOD SPECIMENOrdering Facility: [facility] Address: [address] [place] [address] Performed By: #### B MP #### [place] [phone] Monocytes (Bld) [#/Vol] 0.50 10*3/uL Normal <0.87 [facility] Comment on above: Order Comment: Speci men Type: BLOOD SPECIMENOrdering Facility: [facility] Address: [address] [place] [address] Performed By: #### B MP #### [place] [phone] Monocytes/100 WBC (Bld) 7.5 % Normal [facility] Comment on above: Order Comment: Speci men Type: BLOOD SPECIMENOrdering Facility: [facility] Address: [address] [place] [address] Performed By: #### B MP #### [phone] Neutrophils (Bld) [#/Vol] 4.08 10*3/uL Normal 1.45-7.50 [facility] Comment on above: Order Comment: Speci men Type: BLOOD SPECIMENOrdering Facility: [facility] Address: [address] [place] [address] Performed By: #### B MP #### [place] [phone] Neutrophils/100 WBC (Bld) 61.2 % Normal [facility] Comment on above: Order Comment: Speci men Type: BLOOD SPECIMENOrdering Facility: [facility] Address: [address] [place] [address] Performed By: #### B MP #### [place] [phone] Nucleated RBC (Bld) [#/Vol] 10*3/uL Normal <0.01 [facility] Comment on above: Order Comment: Speci men Type: BLOOD SPECIMENOrdering Facility: [facility] Address: [address] [place] [address] Performed By: #### B MP #### [place] [address] Nucleated RBC/100 WBC (Bld) [Ratio] 0.0 /100 WBC Normal [facility] Comment on above: Order Comment: Speci men Type: BLOOD SPECIMENOrdering Facility: [facility] Address: [address] [place] [address] Performed By: #### B MP #### [place] [address] Platelet mean volume (Bld) [Entitic vol] 8.9 fL Low 9.0-12.7 [facility] Comment on above: Order Comment: Speci men Type: BLOOD SPECIMENOrdering Facility: [facility] Address: [address] [place] [address] Performed By: #### B MP #### [place] [address] Platelets (Bld) [#/Vol] 455 10*3/uL High 150-400 [facility] Comment on above: Order Comment: Speci men Type: BLOOD SPECIMENOrdering Facility: [facility] Address: [address] [place] [address] Performed By: #### B MP #### [place] [address] RBC (Bld) [#/Vol] 3.51 10*6/uL Low 3.90-5.20 [facility] Comment on above: Order Comment: Speci men Type: BLOOD SPECIMENOrdering Facility: [facility] Address: [address] [place] [address] Performed By: #### B MP #### [place] [address] WBC (Bld) [#/Vol] 6.68 10*3/uL Normal 3.70-11.00 [facility] Comment on above: Order Comment: Speci men Type: BLOOD SPECIMENOrdering Facility: [facility] Address: [address] [place] [address] Performed By: #### B #### [facility] [address] [address] [id number] CNDSon 04-05-2022 CNDS HNO ID: [id number] Author: Jessi Sheets APRN.PAINT ROLLER 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 Service: Colorectal Author Type: Nurse Practitioner Type: Discharge Summary Filed: 04/05/2022 11:10 AM Note Text: Attestation signed by Mary Obrien MD at 04/05/2022 12:54 PM [facility] STAFF PHYSICIAN NOTE OF PERSONAL INVOLVEMENT [...] of the summary. CONSULTING TEAMS DURING HOSPITALIZATION: [facility] Treatment Team: Attending Provider: Mary Obrien [...] only. Pain controlled with TAPs and a ELECTRONIC WARFARE SPECIALIST. Remained nauseated. POD4 re-advanced to full liquids [...] by mo (more content not included)... Normal [facility] Magnesium SerPl-mCncon 04-05 Magnesium [Mass/Vol] 2.0 mg/dL Normal 1.7-2.3 [facility] Comment on above: Order Comment: Speci men Type: BLOOD SPECIMEN Ordering Facility: [facility] Address: [address] [place] [address] Performed By: #### 5 8410-2 #### [facility] CLIA [id number] [address] [place] [address] [place] NURSING PROGon 04-05-2022 NURSING PROG HNO ID: [id number] Author: Liliana Mayer RN Service: ? 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 This note was completed by: Liliana Mayer [facility] NURSING PROG HNO ID: [id number] Author: Liliana Mayer RN Service: ? Author [...] This note was completed by: Liliana Mayer [facility] NURSING PROG HNO ID: [id number] Author: Eagle Gu RN Service: ? Author Type: Registered Nurse Type: Nursing Progress Note Filed: 04/04/2022 10:58 PM Note Text: Nursing Progress Note Patient Name: Mary Leal Patient Location: __ Daily Note:04/04/22 2140 Pt is alert and oriented x3. Pt mabulating independently. Surgical sites intact. Pt refusing IVF, pt states she drinks enough water. This note was completed by: Eagle Gu [facility] NUTRITIONon 04-05-2022 NUTRITION HNO ID: [id number] Author: Merced Morales DTR Service: Nutrition Therapy Author Type: Lyft Driver Type: Nutrition Filed: 04/05/2022 10:42 AM Note Text: NUTRITION THERAPY CHICKEN TENDER NOTE SERVICE DATE: 04/05/2022 SERVICE TIME: 9:45 [...] DATE: April 05, 2022 TIME: 9:54 AM [facility] Phosphate SerPl-mCncon 04-05 Phosphate [Mass/Vol] 4.6 mg/dL Normal 2.7-4.8 [facility] Comment on above: Order Comment: Speci men Type: BLOOD SPECIMEN Ordering Facility: [facility] Address: [address] [place], [place] [address] Performed By: #### 5 8410-2 #### [facility] CLIA [id number] [address] [id number] [place] Basic metabolic 2000 panelon 04-04-2022 Anion gap [Moles/Vol] 10 mmol/L Normal 9-18 [facility] Comment on above: Order Comment: Speci men Type: BLOOD SPECIMENOrdering Facility: [facility] Address: [address] [place], [place] [address] Performed By: #### 2 4321-2, , 2776-11 ####[facility] [id number] [place] [address] [place] Calcium [Mass/Vol] 8.9 mg/dL Normal 8.5-10.2 [facility] Comment on above: Order Comment: Speci men Type: BLOOD SPECIMENOrdering Facility: [facility] Address: [address] [place] [address] Performed By: #### 2 4321-2, , 2776-11 ####[facility] [id number] [place] [address] [place] Chloride [Moles/Vol] 104 mmol/L Normal 97-105 [facility] Comment on above: Order Comment: Speci men Type: BLOOD SPECIMENOrdering Facility: [facility] Address: [address] [place], [place] [address] Performed By: #### 2 4321-2, , 2776-11 ####[facility] [id number] [place] [id number] [place] CO2 [Moles/Vol] 26 mmol/L Normal 22-30 [facility] Comment on above: Order Comment: Speci men Type: BLOOD SPECIMENOrdering Facility: [facility] Address: [address] [place], [place] [address] Performed By: #### 2 4321-2, , 2776-11 ####[facility] [id number] [place] [address] [place] Creatinine [Mass/Vol] 0.56 mg/dL Low 0.58-0.96 [facility] Comment on above: Order Comment: Leanne terry Type: BLOOD SPECIMENOrdering Facility: [facility] Address: [address] [place], [place] [phone] Performed By: #### 2 4321-2, , 2776-11 ####[facility] [id number] [place] [address] [place] ESTIMATED GLOMERULAR FILTRATION RATE 112 mL/min/1.73m??? Normal >=60 [facility] Comment on above: Order Comment: Everette harrison Type: BLOOD SPECIMENOrdering Facility: [facility] Address: [address] [place], [place] [phone] Result Comment: Mary mated Glomerular Filtration Rate [...] Performed By: #### 2 4321-2, , 2776-11 ####[facility] [id number] [place] [address] [place] Glucose [Mass/Vol] 112 mg/dL High 74-99 [facility] Comment on above: Order Comment: Leanne harrison Type: BLOOD SPECIMENOrdering Facility: [facility] Address: [address] [place], [place] [phone] Result Comment: The [place] [employer] Association (ADA) provides guidance for cutoff [...] Standards of Medical Care in Diabetes 2016, [place] [employer]. Diabetes Care. 2016.39(Suppl 1). Performed By: #### 2 4321-2, , 2776-11 ####[facility] [id number] [place] [id number] [place] Potassium [Moles/Vol] 3.9 mmol/L Normal 3.7-5.1 [facility] Comment on above: Order Comment: Speci men Type: BLOOD SPECIMENOrdering Facility: [facility] Address: [address] [place] [address] Performed By: #### 2 4321-2, , 2776-11 ####[facility] [id number] [address] [place] Sodium [Moles/Vol] 140 mmol/L Normal 136-144 [facility] Comment on above: Order Comment: Speci men Type: BLOOD SPECIMENOrdering Facility: [facility] Address: [address] [place] [address] Performed By: #### 2 4321-2, , 2776-11 ####[facility] [id number] [place] [address] [place] Urea nitrogen [Mass/Vol] 3 mg/dL Low 7-21 [facility] Comment on above: Order Comment: Speci men Type: BLOOD SPECIMENOrdering Facility: [facility] Address: [address] [address] Performed By: #### 2 4321-2, , 2776-11 ####[facility] [id number] [place] [address] [place] CBC W Auto Differential pane l (Bld)on 04-04-2022 Basophils (Bld) [#/Vol] 0.03 10*3/uL Normal <0.11 [facility] Comment on above: Order Comment: Speci men Type: BLOOD SPECIMEN Ordering Facility: [facility] Address: [address] [place] [address] Performed By: #### 5 7021-8 #### [facility] CLIA [id number] [address] [place] [address] [place] Basophils/100 WBC (Bld) 0.5 % Normal [facility] Comment on above: Order Comment: Speci men Type: BLOOD SPECIMEN Ordering Facility: [facility] Address: [address] [place] [address] Performed By: #### 5 7021-8 #### [facility] CLIA [id number] [address] [place] [address] [place] Differential cell count method Nom (Bld) Auto Normal [facility] Comment on above: Order Comment: Speci men Type: BLOOD SPECIMEN Ordering Facility: [facility] Address: [address] [place] [address] Performed By: #### 5 7021-8 #### [facility] CLIA [id number] [address] [place] [address] [place] Eosinophils (Bld) [#/Vol] 0.48 10*3/uL High <0.46 [facility] Comment on above: Order Comment: Speci men Type: BLOOD SPECIMEN Ordering Facility: [facility] Address: [address] [place] [address] Performed By: #### 5 7021-8 #### [facility] CLIA [id number] [address] [place] [address] [place] Eosinophils/100 WBC (Bld) 7.7 % Normal [facility] Comment on above: Order Comment: Speci men Type: BLOOD SPECIMEN Ordering Facility: [facility] Address: [address] [place] [address] Performed By: #### 5 7021-8 #### [facility] CLIA [id number] [address] [place] [address] [place] Erythrocyte distribution width (RBC) [Ratio] 12.7 % Normal 11.5-15.0 [facility] Comment on above: Order Comment: Speci men Type: BLOOD SPECIMEN Ordering Facility: [facility] Address: [address] [place] [address] Performed By: #### 5 7021-8 #### [facility] CLIA [id number] [address] [place] [address] OF [facility] Hematocrit (Bld) [Volume fraction] 31.2 % Low 36.0-46.0 [facility] Comment on above: Order Comment: Speci men Type: BLOOD SPECIMEN Ordering Facility: [facility] Address: [address] [place] [address] Performed By: #### 5 7021-8 #### [facility] CLIA [id number] [address] [place] [address] [place] Hemoglobin (Bld) [Mass/Vol] 10.7 g/dL Low 11.5-15.5 [facility] Comment on above: Order Comment: Speci men Type: BLOOD SPECIMEN Ordering Facility: [facility] Address: [address] [place] [address] Performed By: #### 5 7021-8 #### [facility] CLIA [id number] [address] [place] [address] IMMATURE GRAN % 0.5 % Normal [facility] Comment on above: Order Comment: Speci men Type: BLOOD SPECIMEN Ordering Facility: [facility] Address: [address] [place] [address] Performed By: #### 5 7021-8 #### [facility] CLIA [id number] [address] [place] [address] [place] IMMATURE GRAN ABS 0.03 k/uL Normal <0.10 [facility] Comment on above: Order Comment: Speci men Type: BLOOD SPECIMEN Ordering Facility: [facility] Address: [address] [place] [address] Performed By: #### 5 7021-8 #### [facility] CLIA [id number] [address] [place] [address] [place] Lymphocytes (Bld) [#/Vol] 1.13 10*3/uL Normal 1.00-4.00 [facility] Comment on above: Order Comment: Speci men Type: BLOOD SPECIMEN Ordering Facility: [facility] Address: [address] [place] [address] Performed By: #### 5 7021-8 #### [facility] CLIA [id number] [address] [place] [address] Lymphocytes/100 WBC (Bld) 18.2 % Normal [facility] Comment on above: Order Comment: Speci men Type: BLOOD SPECIMEN Ordering Facility: [facility] Address: [address] [place] [address] Performed By: #### 5 7021-8 #### [facility] CLIA [id number] [address] [place] [address] [place] OF [facility] MCH (RBC) [Entitic mass] 29.9 pg Normal 26.0-34.0 [facility] Comment on above: Order Comment: Speci men Type: BLOOD SPECIMEN Ordering Facility: [facility] Address: [address] [place] [address] Performed By: #### 5 7021-8 #### [facility] CLIA [id number] [address] [place] [address] MCHC (RBC) [Mass/Vol] 34.3 g/dL Normal 30.5-36.0 [facility] Comment on above: Order Comment: Speci men Type: BLOOD SPECIMEN Ordering Facility: [facility] Address: [address] [place] [address] Performed By: #### 5 7021-8 #### [facility] CLIA [id number] [address] [place] [address] [place] MCV (RBC) [Entitic vol] 87.2 fL Normal 80.0-100.0 [facility] Comment on above: Order Comment: Speci men Type: BLOOD SPECIMEN Ordering Facility: [facility] Address: [address] [place] [address] Performed By: #### 5 7021-8 #### [facility] CLIA [id number] [address] [place] [address] [place] Monocytes (Bld) [#/Vol] 0.36 10*3/uL Normal <0.87 [facility] Comment on above: Order Comment: Speci men Type: BLOOD SPECIMEN Ordering Facility: [facility] Address: [address] [place] [address] Performed By: #### 5 7021-8 #### [facility] CLIA [id number] [address] [place] [address] [place] Monocytes/100 WBC (Bld) 5.8 % Normal [facility] Comment on above: Order Comment: Speci men Type: BLOOD SPECIMEN Ordering Facility: [facility] Address: [address] [place] [address] Performed By: #### 5 7021-8 #### [facility] CLIA [id number] [address] [place] [address] [place] Neutrophils (Bld) [#/Vol] 4.18 10*3/uL Normal 1.45-7.50 [facility] Comment on above: Order Comment: Speci men Type: BLOOD SPECIMEN Ordering Facility: [facility] Address: [address] [place] [address] Performed By: #### 5 7021-8 #### [facility] CLIA [id number] [address] [place] [address] [place] Neutrophils/100 WBC (Bld) 67.3 % Normal [facility] Comment on above: Order Comment: Speci men Type: BLOOD SPECIMEN Ordering Facility: [facility] Address: [address] [place] [address] Performed By: #### 5 7021-8 #### [facility] CLIA [id number] [address] [place] [address] [place] Nucleated RBC (Bld) [#/Vol] 10*3/uL Normal <0.01 [facility] Comment on above: Order Comment: Speci men Type: BLOOD SPECIMEN Ordering Facility: [facility] Address: [address] [place] [address] Performed By: #### 5 7021-8 #### [facility] CLIA [id number] [address] [place] [address] [place] Nucleated RBC/100 WBC (Bld) [Ratio] 0.0 /100 WBC Normal [facility] Comment on above: Order Comment: Speci men Type: BLOOD SPECIMEN Ordering Facility: [facility] Address: [address] [place] [address] Performed By: #### 5 7021-8 #### [facility] CLIA [id number] [address] [place] [address] [place] Platelet mean volume (Bld) [Entitic vol] 8.7 fL Low 9.0-12.7 [facility] Comment on above: Order Comment: Speci men Type: BLOOD SPECIMEN Ordering Facility: [facility] Address: [address] [place] [address] Performed By: #### 5 7021-8 #### [facility] CLIA [id number] [address] [place] [address] [place] Platelets (Bld) [#/Vol] 436 10*3/uL High 150-400 [facility] Comment on above: Order Comment: Speci men Type: BLOOD SPECIMEN Ordering Facility: [facility] Address: [address] [place] [address] Performed By: #### 5 7021-8 #### [facility] CLIA [id number] [address] [place] [address] [place] RBC (Bld) [#/Vol] 3.58 10*6/uL Low 3.90-5.20 [facility] Comment on above: Order Comment: Speci men Type: BLOOD SPECIMEN Ordering Facility: [facility] Address: [address] [place] [address] Performed By: #### 5 7021-8 #### [facility] CLIA [id number] [address] [place] [address] [place] WBC (Bld) [#/Vol] 6.21 10*3/uL Normal 3.70-11.00 [facility] Comment on above: Order Comment: Speci men Type: BLOOD SPECIMEN Ordering Facility: [facility] Address: [address] [place], [place] [address] Performed By: #### 5 7021-8 #### [facility] [place] [id number] [address] [place] [id number] [facility] Magnesium SerPl-mCncon 04-04 Magnesium [Mass/Vol] 2.1 mg/dL Normal 1.7-2.3 [facility] Comment on above: Order Comment: Speci men Type: BLOOD SPECIMENOrdering Facility: [facility] Address: [address] [place], [place] [address] Performed By: #### 2 4321-2, 58116-1, 2777-1 ####[facility] [id number] [address] NURSING PROGon 04-04-2022 NURSING PROG HNO ID: [id number] Author: Dipti Crowley RN Service: Nursing Author Type: Registered Nurse Type: Nursing Progress Note Filed: 04/04/2022 7:47 PM Note Text: Nursing Progress Note Patient Name: Mary Leal Patient Location: __ Daily Note:Patient refusing further IVF. This note was completed by: Dipti Crolwey [facility] NURSING PROG HNO ID: [id number] Author: Dipti Crowley RN Service: Nursing Author Type: Registered Nurse Type: Nursing Progress Note Filed: 04/04/2022 11:11 AM Note Text: Nursing Progress Note Patient Name: Mary Leal Patient Location: [address] __ Daily Note: Patient up in chair [...] notified, but post call. Will page SR infection control nurse. Will continue to monitor. Call light in reach. This note was completed by: Dipti [facility] Phosphate SerPl-freya 04-04 Phosphate [Mass/Vol] 3.2 mg/dL Normal 2.7-4.8 [facility] Comment on above: Order Comment: Speci men Type: BLOOD SPECIMENOrdering Facility: [facility] Address: [address] [place] [address] Performed By: #### 2 4321-2, 83950-2, 2777-1 ####[facility] [id number] [address] [facility] ALLIED HEALTHon 04-03-2022 ALLIED HEALTH HNO ID: [id number] Author: Carmen Daley, [place] Service: ? Author Type: Ribbon Cutter Type: Allied Health Filed: 04/03/2022 5:35 PM [...] Martinez April 03, 2022 5:35 PM Normal [facility] Basic metabolic 2000 panelon 04-03-2022 Anion gap [Moles/Vol] 10 mmol/L Normal 9-18 [facility] Comment on above: Order Comment: Speci men Type: BLOOD SPECIMENOrdering Facility: [facility] Address: [address] [place] [address] Performed By: #### B MP #### [place] [phone] Calcium [Mass/Vol] 8.4 mg/dL Low 8.5-10.2 [facility] Comment on above: Order Comment: Speci men Type: BLOOD SPECIMENOrdering Facility: [facility] Address: [address] [place] [address] Performed By: #### B MP #### [place] [id number] Chloride [Moles/Vol] 103 mmol/L Normal 97-105 [facility] Comment on above: Order Comment: Speci men Type: BLOOD SPECIMENOrdering Facility: [facility] Address: [address] [place] [address] Performed By: #### B MP #### [place] [id number] CO2 [Moles/Vol] 25 mmol/L Normal 22-30 [facility] Comment on above: Order Comment: Speci men Type: BLOOD SPECIMENOrdering Facility: [facility] Address: [address] [place] [address] Performed By: #### B MP #### [place] [id number] Creatinine [Mass/Vol] 0.60 mg/dL Normal 0.58-0.96 [facility] Comment on above: Order Comment: Speci men Type: BLOOD SPECIMENOrdering Facility: [facility] Address: [address] [place] [address] Performed By: #### B MP #### [place] [address] [place] [address] ESTIMATED GLOMERULAR FILTRATION RATE 110 mL/min/1.73m??? Normal >=60 [facility] Comment on above: Order Comment: Leanne terry Type: BLOOD SPECIMENOrdering Facility: [facility] Address: [address] [place], [place] [address] Result Comment: Mary mated Glomerular Filtration Rate [...] GFR. Performed By: #### B MP #### [place] [address] [place] [address] Glucose [Mass/Vol] 106 mg/dL High 74-99 [facility] Comment on above: Order Comment: Leanne terry Type: BLOOD SPECIMENOrdering Facility: [facility] Address: [address] [place] [address] Result Comment: The [place] [employer] (ADA) provides guidance for cutoff [...] Standards of Medical Care in Diabetes 2016, [place] [employer]. Diabetes Care. 2016.39(Suppl 1). Performed By: #### B MP #### [facility] [address] [place] [address] Potassium [Moles/Vol] 3.3 mmol/L Low 3.7-5.1 [facility] Comment on above: Order Comment: Leanne terry Type: BLOOD SPECIMENOrdering Facility: [facility] Address: [address] [place] [address] Performed By: #### B MP #### [id number] Sodium [Moles/Vol] 138 mmol/L Normal 136-144 [facility] Comment on above: Order Comment: Speci men Type: BLOOD SPECIMENOrdering Facility: [facility] Address: [address] [place] [address] Performed By: #### B MP #### [place] [id number] Urea nitrogen [Mass/Vol] 4 mg/dL Low 05-26 [facility] Comment on above: Order Comment: Speci men Type: BLOOD SPECIMENOrdering Facility: [facility] Address: [address] [place] [address] Performed By: #### B MP #### [place] [id number] CBC W Auto Differential pane l (Bld)on 04-03-2022 Basophils (Bld) [#/Vol] 0.03 10*3/uL Normal <0.11 [facility] Comment on above: Order Comment: Speci men Type: BLOOD SPECIMENOrdering Facility: [facility] Address: [address] [place] [address] Performed By: #### B MP #### [place] [id number] Basophils/100 WBC (Bld) 0.4 % Normal [facility] Comment on above: Order Comment: Speci men Type: BLOOD SPECIMENOrdering Facility: [facility] Address: [address] [place] [address] Performed By: #### B MP #### [place] [id number] Differential cell count method Nom (Bld) Auto Normal [facility] Comment on above: Order Comment: Speci men Type: BLOOD SPECIMENOrdering Facility: [facility] Address: [address] [place] [address] Performed By: #### B MP #### [place] [id number] Eosinophils (Bld) [#/Vol] 0.48 10*3/uL High <0.46 [facility] Comment on above: Order Comment: Speci men Type: BLOOD SPECIMENOrdering Facility: [facility] Address: [address] [place] [address] Performed By: #### B MP #### [place] [id number] Eosinophils/100 WBC (Bld) 6.5 % Normal [facility] Comment on above: Order Comment: Speci men Type: BLOOD SPECIMENOrdering Facility: [facility] Address: [address] [place] [address] Performed By: #### B MP #### [place] [address] Erythrocyte distribution width (RBC) [Ratio] 12.5 % Normal 11.5-15.0 [facility] Comment on above: Order Comment: Speci men Type: BLOOD SPECIMENOrdering Facility: [facility] Address: [address] [place] [address] Performed By: #### B MP #### [place] [id number] Hematocrit (Bld) [Volume fraction] 29.5 % Low 36.0-46.0 [facility] Comment on above: Order Comment: Speci men Type: BLOOD SPECIMENOrdering Facility: [facility] Address: [address] [place] [address] Performed By: #### B MP #### [address] Hemoglobin (Bld) [Mass/Vol] 10.2 g/dL Low 11.5-15.5 [facility] Comment on above: Order Comment: Speci men Type: BLOOD SPECIMENOrdering Facility: [facility] Address: [address] [place] [address] Performed By: #### B MP #### [place] [phone] IMMATURE GRAN % 0.5 % Normal [facility] Comment on above: Order Comment: Speci men Type: BLOOD SPECIMENOrdering Facility: [facility] Address: [address] [place] [address] Performed By: #### B MP #### [place] [phone] IMMATURE GRAN ABS 0.04 k/uL Normal <0.10 [facility] Comment on above: Order Comment: Speci men Type: BLOOD SPECIMENOrdering Facility: [facility] Address: [address] [place] [address] Performed By: #### B MP #### [id number] Lymphocytes (Bld) [#/Vol] 1.11 10*3/uL Normal 1.00-4.00 [facility] Comment on above: Order Comment: Speci men Type: BLOOD SPECIMENOrdering Facility: [facility] Address: [address] [place] [address] Performed By: #### B MP #### [place] [id number] Lymphocytes/100 WBC (Bld) 15.0 % Normal [facility] Comment on above: Order Comment: Speci men Type: BLOOD SPECIMENOrdering Facility: [facility] Address: [address] [place] [address] Performed By: #### B MP #### [id number] MCH (RBC) [Entitic mass] 30.1 pg Normal 26.0-34.0 [facility] Comment on above: Order Comment: Speci men Type: BLOOD SPECIMENOrdering Facility: [facility] Address: [address] [place] [address] Performed By: #### B MP #### [place] [phone] MCHC (RBC) [Mass/Vol] 34.6 g/dL Normal 30.5-36.0 [facility] Comment on above: Order Comment: Speci men Type: BLOOD SPECIMENOrdering Facility: [facility] Address: [address] [place] [address] Performed By: #### B MP #### [place] [address] MCV (RBC) [Entitic vol] 87.0 fL Normal 80.0-100.0 [facility] Comment on above: Order Comment: Speci men Type: BLOOD SPECIMENOrdering Facility: [facility] Address: [address] [place] [address] Performed By: #### B MP #### [phone] Monocytes (Bld) [#/Vol] 0.46 10*3/uL Normal <0.87 [facility] Comment on above: Order Comment: Speci men Type: BLOOD SPECIMENOrdering Facility: [facility] Address: [address] [place] [address] Performed By: #### B MP #### [id number] Monocytes/100 WBC (Bld) 6.2 % Normal [facility] Comment on above: Order Comment: Speci men Type: BLOOD SPECIMENOrdering Facility: [facility] Address: [address] [place] [address] Performed By: #### B MP #### [phone] Neutrophils (Bld) [#/Vol] 5.27 10*3/uL Normal 1.45-7.50 [facility] Comment on above: Order Comment: Speci men Type: BLOOD SPECIMENOrdering Facility: [facility] Address: [address] [place] [address] Performed By: #### B MP #### [place] [phone] Neutrophils/100 WBC (Bld) 71.4 % Normal [facility] Comment on above: Order Comment: Speci men Type: BLOOD SPECIMENOrdering Facility: [facility] Address: [address] [place] [address] Performed By: #### B MP #### [place] [phone] Nucleated RBC (Bld) [#/Vol] 10*3/uL Normal <0.01 [facility] Comment on above: Order Comment: Speci men Type: BLOOD SPECIMENOrdering Facility: [facility] Address: [address] [place] [address] Performed By: #### B MP #### [place] [id number] Nucleated RBC/100 WBC (Bld) [Ratio] 0.0 /100 WBC Normal [facility] Comment on above: Order Comment: Speci men Type: BLOOD SPECIMENOrdering Facility: [facility] Address: [address] [place] [address] Performed By: #### B MP #### [place] [phone] Platelet mean volume (Bld) [Entitic vol] 8.6 fL Low 9.0-12.7 [facility] Comment on above: Order Comment: Speci men Type: BLOOD SPECIMENOrdering Facility: [facility] Address: [address] [place] [address] Performed By: #### B MP #### [place] [phone] Platelets (Bld) [#/Vol] 342 10*3/uL Normal 150-400 [facility] Comment on above: Order Comment: Speci men Type: BLOOD SPECIMENOrdering Facility: [facility] Address: [address] [place] [address] Performed By: #### B MP #### [place] [phone] RBC (Bld) [#/Vol] 3.39 10*6/uL Low 3.90-5.20 [facility] Comment on above: Order Comment: Speci men Type: BLOOD SPECIMENOrdering Facility: [facility] Address: [address] [address] Performed By: #### B MP #### [place] [address] [place] [phone] WBC (Bld) [#/Vol] 7.39 10*3/uL Normal 3.70-11.00 [facility] Comment on above: Order Comment: Speci men Type: BLOOD SPECIMENOrdering Facility: [facility] Address: [address] [address] Performed By: #### B MP #### [place] [address] CONSULT PROGon 04-03-2022 CONSULT PROG HNO ID: [id number] Author: Sarwat Huddleston PA-C Service: Pain Management Author Type: Physician Experimental Electronics Developer Type: Consult Progress Note Filed: 04/03/2022 8:39 [...] appears comf (more content not included)... Normal [facility] CT ABD/PEL W IVCONon 022 CT ABD/PEL [...] Lower thorax: Visualized lung bases are clear. Glass Sagger (topogram) images: No additional findings. IMPRESSION: Postsurgical [...] collection is present in the lower pelvis Chemical [facility] Transcribe Date/Time: Apr 03 2022 9:00P Dictated by : SHELBY ESPINOSA MD This examination was interpreted and the report reviewed and electronically signed by: SHELBY ESPINOSA MD on Apr 03 2022 9:12PM EST [id number] Normal [facility] Magnesium SerPl-mCncon 04-03 Magnesium [Mass/Vol] 1.6 mg/dL Low 1.7-2.3 [facility] Comment on above: Order Comment: Speci men Type: BLOOD SPECIMENOrdering Facility: [facility] Address: [address] [place] [address] Performed By: #### B MP #### [place] [address] [place] [address] NURSING PROGon 04-03-2022 NURSING PROG HNO ID: [id number] Author: Beto Ford RN Service: ? Author Type: Registered Nurse Type: Nursing Progress Note Filed: 04/03/2022 9:39 PM Note Text: Nursing Progress Note Patient Name: Mary Leal Patient Location: [address] __ Daily Note: 2129: Pt declined to have all oral medications. They just go right through me. I cannot take them. . Made RN aware. This note was completed by: Beto Ford [facility] NURSING PROG HNO ID: [id number] Author: Dipti Crowley RN Service: Nursing Author Type: Registered Nurse Type: Nursing Progress Note Filed: 04/03/2022 2:51 PM Note Text: Nursing Progress Note Patient Name: Mary Leal Patient Location: [address]25 __ Daily Note:Patient unable to tolerate powder form of potassium due to nausea. Patient unable to tolerate IV form, it feels like It's paralyzing my arm . Attempted to dilute boluses and lower rates with no success. SR paged with events ([phone]). Awaiting further orders. This note was completed by: Dipti Crowley [facility] NURSING PROG HNO ID: [id number] Author: Dipti Crowley RN Service: Nursing Author [...] with tape applied. 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 BS Hypoactive. No flatus per [...] This note was completed by: Dipti Crowley [facility] NURSING PROG HNO ID: [id number] Author: Chava Remy RN Service: PICC Team [...] 03, 2022 TIME: 8:37 AM PAGER/CONTACT #: [facility] NURSING PROG HNO ID: [id number] Author: Kev Leone RN Service: ? Author Type: Registered Nurse Type: Nursing Progress Note Filed: 04/03/2022 3:50 AM Note Text: Nursing Progress Note Patient Name: Mary Leal Patient Location: [id number] __ Daily Note: 2100: Pt refusing all PO meds at this time, states she's concerned that she's not digesting them properly. Paan currently being controlled with bilateral blocks and PRN IV pain medication. This note was completed by: Kev Leone [facility] Phosphate SerPl-mCncon 04-03 Phosphate [Mass/Vol] 3.3 mg/dL Normal 2.7-4.8 [facility] Comment on above: Order Comment: Speci men Type: BLOOD SPECIMENOrdering Facility: [facility] Address: [address] [place] [address] Performed By: #### B MP #### [place] [phone] ALLIED HEALTHon 04-02-2022 ALLIED HEALTH HNO ID: [id number] Author: AUGIE Cevallos) Service: Radiology Author Type: Technologist Type: Allied [...] PERIPHERAL IV DATA: Not applicable SIGNED BY: AUGIE Cevallos) April 02, 2022 9:12 AM [facility] CONSULT PROGon 04-02-2022 CONSULT PROG HNO ID: [id number] Author: Sarwat Huddleston PA-C Service: Pain Management Author Type: Physician Experimental Electronics Developer Type: Consult Progress Note Filed: 04/02/2022 9:00 [...] 29.3 5 (more content not included)... Normal [facility] NURSING PROGon 04-02-2022 NURSING PROG HNO ID: [id number] Author: Dipti Crowley RN Service: Nursing Author [...] monitor. This note was completed by: Dipti Langford [facility] XR ABDOMEN 1V SUPINEon 04-02 XR ABDOMEN [...] may be of help for further evaluation. Chemical Laboratory Tester: [facility] Transcribe Date/Time: Apr 02 2022 9:16A Dictated by : JOAQUIN BRYANT MD This examination was interpreted and the report reviewed and electronically signed by: JOAQUIN BRYANT MD on Apr 02 2022 9:19AM EST [id number] Normal [facility] Basic metabolic 2000 panelon 04-01-2022 Anion gap [Moles/Vol] 9 mmol/L Normal 9-18 [facility] Comment on above: Order Comment: Speci men Type: BLOOD SPECIMENOrdering Facility: [facility] Address: [address] [place] [address] Performed By: #### B MP #### [place] [address] Calcium [Mass/Vol] 7.9 mg/dL Low 8.5-10.2 [facility] Comment on above: Order Comment: Speci men Type: BLOOD SPECIMENOrdering Facility: [facility] Address: [address] [place] [address] Performed By: #### B MP #### [place] [phone] Chloride [Moles/Vol] 106 mmol/L High 97-105 [facility] Comment on above: Order Comment: Speci men Type: BLOOD SPECIMENOrdering Facility: [facility] Address: [address] [place] [address] Performed By: #### B MP #### [phone] CO2 [Moles/Vol] 26 mmol/L Normal 22-30 [facility] Comment on above: Order Comment: Speci men Type: BLOOD SPECIMENOrdering Facility: [facility] Address: [address] [place] [address] Performed By: #### B MP #### [id number] Creatinine [Mass/Vol] 0.68 mg/dL Normal 0.58-0.96 [facility] Comment on above: Order Comment: Speci men Type: BLOOD SPECIMENOrdering Facility: [facility] Address: [address] [place] [address] Performed By: #### B MP #### [place] [phone] ESTIMATED GLOMERULAR FILTRATION RATE 107 mL/min/1.73m??? Normal >=60 [facility] Comment on above: Order Comment: Speci men Type: BLOOD SPECIMENOrdering Facility: [facility] Address: [address] [place] [address] Result Comment: Mary mated Glomerular Filtration Rate [...] GFR. Performed By: #### B MP #### [place] [address] Glucose [Mass/Vol] 99 mg/dL Normal 74-99 [facility] Comment on above: Order Comment: Leanne terry Type: BLOOD SPECIMENOrdering Facility: [facility] Address: [address] [place] [address] Result Comment: The [place] [employer] (ADA) provides guidance for cutoff [...] Standards of Medical Care in Diabetes 2016, [place] [employer]. Diabetes Care. 2016.39(Suppl 1). Performed By: #### B MP #### [place] [address] Potassium [Moles/Vol] 3.7 mmol/L Normal 3.7-5.1 [facility] Comment on above: Order Comment: Leanne terry Type: BLOOD SPECIMENOrdering Facility: [facility] Address: [address] [place] [address] Performed By: #### B MP #### [place] [address] Sodium [Moles/Vol] 141 mmol/L Normal 136-144 [facility] Comment on above: Order Comment: Leanne terry Type: BLOOD SPECIMENOrdering Facility: [facility] Address: [address] [place] [address] Performed By: #### B MP #### [place] [address] Urea nitrogen [Mass/Vol] 4 mg/dL Low 7-21 [facility] Comment on above: Order Comment: Speci men Type: BLOOD SPECIMENOrdering Facility: [facility] Address: [address] [place] [address] Performed By: #### B MP #### [place] [phone] CBC panel Auto (Bld)on 04-01 Erythrocyte distribution width (RBC) [Ratio] 12.4 % Normal 11.5-15.0 [facility] Comment on above: Order Comment: Speci men Type: BLOOD SPECIMEN Ordering Facility: [facility] Address: [address] [place] [address] Performed By: #### 5 8410-2 #### [facility] CLIA [id number] [address] [place] [address] [place] Hematocrit (Bld) [Volume fraction] 29.3 % Low 36.0-46.0 [facility] Comment on above: Order Comment: Speci men Type: BLOOD SPECIMEN Ordering Facility: [facility] Address: [address] [place] [address] Performed By: #### 5 8410-2 #### [facility] CLIA [id number] [address] [place] [address] [place] Hemoglobin (Bld) [Mass/Vol] 9.6 g/dL Low 11.5-15.5 [facility] Comment on above: Order Comment: Speci men Type: BLOOD SPECIMEN Ordering Facility: [facility] Address: [address] [place] [address] Performed By: #### 5 8410-2 #### [facility] CLIA [id number] [address] [place] [address] [place] MCH (RBC) [Entitic mass] 29.4 pg Normal 26.0-34.0 [facility] Comment on above: Order Comment: Speci men Type: BLOOD SPECIMEN Ordering Facility: [facility] Address: [address] [place] [address] Performed By: #### 5 8410-2 #### [facility] CLIA [id number] [address] [place] [address] [place] MCHC (RBC) [Mass/Vol] 32.8 g/dL Normal 30.5-36.0 [facility] Comment on above: Order Comment: Speci men Type: BLOOD SPECIMEN Ordering Facility: [facility] Address: [address] [place] [address] Performed By: #### 5 8410-2 #### [facility] CLIA [id number] [address] [place] [address] [place] MCV (RBC) [Entitic vol] 89.9 fL Normal 80.0-100.0 [facility] Comment on above: Order Comment: Speci men Type: BLOOD SPECIMEN Ordering Facility: [facility] Address: [address] [place] [address] Performed By: #### 5 8410-2 #### [facility] CLIA [id number] [address] [place] [address] [place] Nucleated RBC (Bld) [#/Vol] 10*3/uL Normal <0.01 [facility] Comment on above: Order Comment: Speci men Type: BLOOD SPECIMEN Ordering Facility: [facility] Address: [address] [place] [address] Performed By: #### 5 8410-2 #### [facility] CLIA [id number] [address] [place] [address] [place] Platelet mean volume (Bld) [Entitic vol] 8.9 fL Low 9.0-12.7 [facility] Comment on above: Order Comment: Speci men Type: BLOOD SPECIMEN Ordering Facility: [facility] Address: [address] [place] [address] Performed By: #### 5 8410-2 #### [facility] CLIA [id number] [address] [place] [address] [place] Platelets (Bld) [#/Vol] 282 10*3/uL Normal 150-400 [facility] Comment on above: Order Comment: Speci men Type: BLOOD SPECIMEN Ordering Facility: [facility] Address: [address] [place] [address] Performed By: #### 5 8410-2 #### [facility] CLIA [id number] [address] [place] [address] OF [facility] RBC (Bld) [#/Vol] 3.26 10*6/uL Low 3.90-5.20 [facility] Comment on above: Order Comment: Speci men Type: BLOOD SPECIMEN Ordering Facility: [facility] Address: [address] [place] [address] Performed By: #### 5 8410-2 #### [facility] CLIA [id number] [address] [place] [address] WBC (Bld) [#/Vol] 7.39 10*3/uL Normal 3.70-11.00 [facility] Comment on above: Order Comment: Speci men Type: BLOOD SPECIMEN Ordering Facility: [facility] Address: [address] [place] [address] Performed By: #### 5 8410-2 #### [facility] CLIA [id number] [address] [place] [address] CONSULT PROGon 04-01-2022 CONSULT PROG HNO ID: [id number] Author: Joslyn Jain APRN.PAINT ROLLER 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 Service: Pain Management Author Type: Nurse Practitioner [...] 0.67 Sod (more content not included)... Normal [facility] Magnesium SerPl-mCncon 04-01 Magnesium [Mass/Vol] 1.7 mg/dL Normal 1.7-2.3 [facility] Comment on above: Order Comment: Speci men Type: BLOOD SPECIMENOrdering Facility: [facility] Address: [address] [place], [place] [id number] Performed By: #### B MP #### [place] [address] NURSING PROGon 04-01-2022 NURSING PROG HNO ID: [id number] Author: Eagle Gu RN Service: ? Author Type: Registered Nurse Type: Nursing Progress Note Filed: 04/01/2022 9:56 PM Note Text: Nursing Progress Note Patient Name: Mary Leal Patient Location: [address]/[id number] __ Daily Note:04/01/222038 Pt is alert and oriented x3. Surgical sites intact. Tap blocks x2 intact. Made SROC aware of Pt experiencing sharp/stabbing pain in abdomen, rating 9/10. SROC recommended use of PRN Dilaudid This note was completed by: Eagle Gu [facility] NURSING PROG HNO ID: [id number] Author: Eagle Gu RN Service: ? Author Type: Registered Nurse Type: Nursing Progress Note Filed: 04/01/2022 1:52 AM Note Text: Nursing Progress Note Patient Name: Mary Leal Patient Location: / __ Daily Note:03/31/222030 Pt is alert and oriented x3. Surgical sites intact. Nerve blocks x2 intact. This note was completed by: Eagle Gu Normal [facility] Phosphate SerPl-mCncon 04-01 Phosphate [Mass/Vol] 2.8 mg/dL Normal 2.7-4.8 [facility] Comment on above: Order Comment: Speci men Type: BLOOD SPECIMENOrdering Facility: [facility] Address: [address] [place] [address] Performed By: #### B #### [place] [address] Basic metabolic 2000 panelon 03-31-2022 Anion gap [Moles/Vol] 10 mmol/L Normal 9-18 [facility] Comment on above: Order Comment: Speci men Type: BLOOD SPECIMEN Ordering Facility: [facility] Address: [address] [place] [address] Performed By: #### 5 8410-2 #### [facility] CLIA [id number] [address] [place] [address] [place] Calcium [Mass/Vol] 8.4 mg/dL Low 8.5-10.2 [facility] Comment on above: Order Comment: Speci men Type: BLOOD SPECIMEN Ordering Facility: [facility] Address: [address] [place] [address] Performed By: #### 5 8410-2 #### [facility] CLIA [id number] [address] [place] [address] [place] Chloride [Moles/Vol] 107 mmol/L High 97-105 [facility] Comment on above: Order Comment: Speci men Type: BLOOD SPECIMEN Ordering Facility: [facility] Address: [address] [place] [address] Performed By: #### 5 8410-2 #### [facility] CLIA [id number] [address] [place] [address] [place] CO2 [Moles/Vol] 23 mmol/L Normal 22-30 [facility] Comment on above: Order Comment: Speci men Type: BLOOD SPECIMEN Ordering Facility: [facility] Address: [address] [place] [address] Performed By: #### 5 8410-2 #### [facility] CLIA [id number] [address] [place] [address] [place] Creatinine [Mass/Vol] 0.67 mg/dL Normal 0.58-0.96 [facility] Comment on above: Order Comment: Speci men Type: BLOOD SPECIMEN Ordering Facility: [facility] Address: [address] [place] [address] Performed By: #### 5 8410-2 #### [facility] CLIA [id number] [address] [place] [address] [place] ESTIMATED GLOMERULAR FILTRATION RATE 107 mL/min/1.73m??? Normal >=60 [facility] Comment on above: Order Comment: Speci men Type: BLOOD SPECIMEN Ordering Facility: [facility] Address: [address] [place] [address] Result Comment: Mary mated Glomerular Filtration Rate [...] GFR. Performed By: #### 5 8410-2 #### [facility] CLIA [id number] [place] [address] [place] Glucose [Mass/Vol] 84 mg/dL Normal 74-99 [facility] Comment on above: Order Comment: Speci men Type: BLOOD SPECIMEN Ordering Facility: [facility] Address: [address] [place] [address] Result Comment: The [place] [employer] (ADA) provides guidance for cutoff [...] Standards of Medical Care in Diabetes 2016, [place] [employer]. Diabetes Care. 2016.39(Suppl 1). Performed By: #### 5 8410-2 #### [facility] CLIA [id number] [address] [place] [address] [place] Potassium [Moles/Vol] 3.8 mmol/L Normal 3.7-5.1 [facility] Comment on above: Order Comment: Speci men Type: BLOOD SPECIMEN Ordering Facility: [facility] Address: [address] [place] [address] Performed By: #### 5 8410-2 #### [facility] CLIA [id number] [address] [place] [address] [place] Sodium [Moles/Vol] 140 mmol/L Normal 136-144 [facility] Comment on above: Order Comment: Speci men Type: BLOOD SPECIMEN Ordering Facility: [facility] Address: [address] [place] [address] Performed By: #### 5 8410-2 #### [facility] CLIA [id number] [address] [place] [address] [place] Urea nitrogen [Mass/Vol] 11 mg/dL Normal 7-21 [facility] Comment on above: Order Comment: Speci men Type: BLOOD SPECIMEN Ordering Facility: [facility] Address: [address] [place] [address] Performed By: #### 5 8410-2 #### [facility] CLIA [id number] [address] [place] [address] [place] CBC W Auto Differential pane l (Bld)on 03-31-2022 Basophils (Bld) [#/Vol] 0.03 10*3/uL Normal <0.11 [facility] Comment on above: Order Comment: Speci men Type: BLOOD SPECIMEN Ordering Facility: [facility] Address: [address] [place] [address] Performed By: #### 5 7021-8 #### [facility] CLIA [id number] [address] [place] [address] [place] Basophils/100 WBC (Bld) 0.4 % Normal [facility] Comment on above: Order Comment: Speci men Type: BLOOD SPECIMEN Ordering Facility: [facility] Address: [address] [place] [address] Performed By: #### 5 7021-8 #### [facility] CLIA [id number] [address] [place] [address] [place] Differential cell count method Nom (Bld) Auto Normal [facility] Comment on above: Order Comment: Speci men Type: BLOOD SPECIMEN Ordering Facility: [facility] Address: [address] [place] [address] Performed By: #### 5 7021-8 #### [facility] CLIA [id number] [address] [place] [address] [place] Eosinophils (Bld) [#/Vol] 0.38 10*3/uL Normal <0.46 [facility] Comment on above: Order Comment: Speci men Type: BLOOD SPECIMEN Ordering Facility: [facility] Address: [address] [place] [address] Performed By: #### 5 7021-8 #### [facility] CLIA [id number] [address] [place] [address] STATES [facility] Eosinophils/100 WBC (Bld) 4.4 % Normal [facility] Comment on above: Order Comment: Speci men Type: BLOOD SPECIMEN Ordering Facility: [facility] Address: [address] [place] [address] Performed By: #### 5 7021-8 #### [facility] CLIA [id number] [address] [place] [address] [place] Erythrocyte distribution width (RBC) [Ratio] 12.6 % Normal 11.5-15.0 [facility] Comment on above: Order Comment: Speci men Type: BLOOD SPECIMEN Ordering Facility: [facility] Address: [address] [place] [address] Performed By: #### 5 7021-8 #### [facility] CLIA [id number] [address] [place] [address] [place] Hematocrit (Bld) [Volume fraction] 30.0 % Low 36.0-46.0 [facility] Comment on above: Order Comment: Speci men Type: BLOOD SPECIMEN Ordering Facility: [facility] Address: [address] [place] [address] Performed By: #### 5 7021-8 #### [facility] CLIA [id number] [address] [place] [address] [place] Hemoglobin (Bld) [Mass/Vol] 9.9 g/dL Low 11.5-15.5 [facility] Comment on above: Order Comment: Speci men Type: BLOOD SPECIMEN Ordering Facility: [facility] Address: [address] [place] [address] Performed By: #### 5 7021-8 #### [facility] CLIA [id number] [address] [place] [address] [place] IMMATURE GRAN % 0.4 % Normal [facility] Comment on above: Order Comment: Speci men Type: BLOOD SPECIMEN Ordering Facility: [facility] Address: [address] [place] [address] Performed By: #### 5 7021-8 #### [facility] CLIA [id number] [address] [place] [address] IMMATURE GRAN ABS 0.03 k/uL Normal <0.10 [facility] Comment on above: Order Comment: Speci men Type: BLOOD SPECIMEN Ordering Facility: [facility] Address: [address] [address] Performed By: #### 5 7021-8 #### [facility] CLIA [id number] [address] [place] [address] [place] Lymphocytes (Bld) [#/Vol] 1.24 10*3/uL Normal 1.00-4.00 [facility] Comment on above: Order Comment: Speci men Type: BLOOD SPECIMEN Ordering Facility: [facility] Address: [address] [place] [address] Performed By: #### 5 7021-8 #### [facility] CLIA [id number] [address] [place] [address] [place] Lymphocytes/100 WBC (Bld) 14.5 % Normal [facility] Comment on above: Order Comment: Speci men Type: BLOOD SPECIMEN Ordering Facility: [facility] Address: [address] [place] [address] Performed By: #### 5 7021-8 #### [facility] CLIA [id number] [address] [place] [address] [place] MCH (RBC) [Entitic mass] 29.6 pg Normal 26.0-34.0 [facility] Comment on above: Order Comment: Speci men Type: BLOOD SPECIMEN Ordering Facility: [facility] Address: [address] [place] [address] Performed By: #### 5 7021-8 #### [facility] CLIA [id number] [address] [place] [address] [place] MCHC (RBC) [Mass/Vol] 33.0 g/dL Normal 30.5-36.0 [facility] Comment on above: Order Comment: Speci men Type: BLOOD SPECIMEN Ordering Facility: [facility] Address: [address] [place] [address] Performed By: #### 5 7021-8 #### [facility] CLIA [id number] [address] [place] [address] [place] MCV (RBC) [Entitic vol] 89.8 fL Normal 80.0-100.0 [facility] Comment on above: Order Comment: Speci men Type: BLOOD SPECIMEN Ordering Facility: [facility] Address: [address] [place] [address] Performed By: #### 5 7021-8 #### [facility] CLIA [id number] [address] [place] [address] [place] Monocytes (Bld) [#/Vol] 0.48 10*3/uL Normal <0.87 [facility] Comment on above: Order Comment: Speci men Type: BLOOD SPECIMEN Ordering Facility: [facility] Address: [address] [place] [address] Performed By: #### 5 7021-8 #### [facility] CLIA [id number] [address] [place] [address] [place] Monocytes/100 WBC (Bld) 5.6 % Normal [facility] Comment on above: Order Comment: Speci men Type: BLOOD SPECIMEN Ordering Facility: [facility] Address: [address] [place] [address] Performed By: #### 5 7021-8 #### [facility] CLIA [id number] [address] [place] [address] [place] Neutrophils (Bld) [#/Vol] 6.41 10*3/uL Normal 1.45-7.50 [facility] Comment on above: Order Comment: Speci men Type: BLOOD SPECIMEN Ordering Facility: [facility] Address: [address] [place] [address] Performed By: #### 5 7021-8 #### [facility] CLIA [id number] [address] [place] [address] [place] Neutrophils/100 WBC (Bld) 74.7 % Normal [facility] Comment on above: Order Comment: Speci men Type: BLOOD SPECIMEN Ordering Facility: [facility] Address: [address] [place] [address] Performed By: #### 5 7021-8 #### [facility] CLIA [id number] [address] [place] [address] [place] Nucleated RBC (Bld) [#/Vol] 10*3/uL Normal <0.01 [facility] Comment on above: Order Comment: Speci men Type: BLOOD SPECIMEN Ordering Facility: [facility] Address: [address] [place] [address] Performed By: #### 5 7021-8 #### [facility] CLIA [id number] [address] [place] [address] [place] Nucleated RBC/100 WBC (Bld) [Ratio] 0.0 /100 WBC Normal [facility] Comment on above: Order Comment: Speci men Type: BLOOD SPECIMEN Ordering Facility: [facility] Address: [address] [place] [address] Performed By: #### 5 7021-8 #### [facility] CLIA [id number] [address] [place] [address] [place] Platelet mean volume (Bld) [Entitic vol] 9.0 fL Normal 9.0-12.7 [facility] Comment on above: Order Comment: Speci men Type: BLOOD SPECIMEN Ordering Facility: [facility] Address: [address] [place] [address] Performed By: #### 5 7021-8 #### [facility] CLIA [id number] [address] [place] [address] [place] Platelets (Bld) [#/Vol] 246 10*3/uL Normal 150-400 [facility] Comment on above: Order Comment: Speci men Type: BLOOD SPECIMEN Ordering Facility: [facility] Address: [address] [place], [place] [address] Performed By: #### 5 7021-8 #### [facility] CLIA [id number] [address] [place] [address] [place] RBC (Bld) [#/Vol] 3.34 10*6/uL Low 3.90-5.20 [facility] Comment on above: Order Comment: Speci men Type: BLOOD SPECIMEN Ordering Facility: [facility] Address: [address] [place] [address] Performed By: #### 5 7021-8 #### [facility] CLIA [id number] [address] [place] [address] [place] WBC (Bld) [#/Vol] 8.57 10*3/uL Normal 3.70-11.00 [facility] Comment on above: Order Comment: Speci men Type: BLOOD SPECIMEN Ordering Facility: [facility] Address: [address] [place] [address] [place] [address] Performed By: #### 5 7021-8 #### [facility] CLIA [id number] [address] [id number] [facility] [place] CONSULT PROGon 03-31-2022 CONSULT PROG HNO ID: [id number] Author: Joslyn Jain APRN.PAINT ROLLER 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 Service: Pain Management Author Type: Nurse Practitioner [...] AND U (more content not included)... Normal [facility] Magnesium SerPl-mCncon 03-31 Magnesium [Mass/Vol] 1.6 mg/dL Low 1.7-2.3 [facility] Comment on above: Order Comment: Speci men Type: BLOOD SPECIMEN Ordering Facility: [facility] Address: [facility] [place] [id number] Performed By: #### 5 8410-2 #### [facility] CLIA [id number] [address] OF [facility] NURSING PROGon 03-31-2022 NURSING PROG HNO ID: [id number] Author: Daisy Amaya RN Service: Nursing Author Type: Registered Nurse Type: Nursing Progress Note Filed: 03/31/2022 4:56 PM Note Text: Nursing Progress Note Patient Name: Mary Leal Patient Location: [facility] __ Daily Note: 0931- Pt A+Ox3. Up with standby assist. Ambulated pod multiple times. Laps intact. Old ostomy site WNL. Pt having liquid brown BMs. Voiding adq. No nausea, cp, or sob. Taps infusing per MAR. Pain controlled with PRN oxy. No further needs at this time. This note was completed by: Daisy Amaya [facility] NURSING PROG HNO ID: [id number] Author: Mariluz Carnes RN Service: Nursing Author Type: Registered Nurse Type: Nursing Progress Note Filed: 03/30/2022 11:47 PM Note Text: Nursing Progress Note Patient Name: Mary Leal Patient Location: [address]/ __ Daily Note: Pt's BP 90/52. Patient asymptomatic. Surgery made aware. Order in for Bolus LR 500CC's. This note was completed by: Mariluz Carnes Normal [facility] Phosphate SerPl-mCncon 03-31 Phosphate [Mass/Vol] 2.7 mg/dL Normal 2.7-4.8 [facility] Comment on above: Order Comment: Speci men Type: BLOOD SPECIMEN Ordering Facility: [facility] Address: [address] [place] [address] Performed By: #### 5 8410-2 #### [facility] CLIA [id number] [address] [place] [address] [place] Basic metabolic 2000 panelon 03-30-2022 Anion gap [Moles/Vol] 10 mmol/L Normal 9-18 [facility] Comment on above: Order Comment: Speci men Type: BLOOD SPECIMEN Ordering Facility: [facility] Address: [address] [place] [address] Performed By: #### 1 9123-9, 2777-, 03028-7 #### [facility] CLIA [id number] [address] [place] [address] [place] Calcium [Mass/Vol] 8.5 mg/dL Normal 8.5-10.2 [facility] Comment on above: Order Comment: Speci men Type: BLOOD SPECIMEN Ordering Facility: [facility] Address: [address] [place] [address] Performed By: #### 1 9123-9, 2777-1, 06971-0 #### [facility] CLIA [id number] [address] [place] [address] [place] Chloride [Moles/Vol] 103 mmol/L Normal 97-105 [facility] Comment on above: Order Comment: Speci men Type: BLOOD SPECIMEN Ordering Facility: [facility] Address: [address] [place] [address] Performed By: #### 1 9123-9, 2777-1, 19234-2 #### [facility] CLIA [id number] [address] [place] [address] [place] CO2 [Moles/Vol] 24 mmol/L Normal 22-30 [facility] Comment on above: Order Comment: Speci men Type: BLOOD SPECIMEN Ordering Facility: [facility] Address: [address] [place] [address] Performed By: #### 1 9123-9, 2777, 31689-5 #### [facility] CLIA [id number] [place] [address] [place] Creatinine [Mass/Vol] 0.69 mg/dL Normal 0.58-0.96 [facility] Comment on above: Order Comment: Everettei men Type: BLOOD SPECIMEN Ordering Facility: [facility] Address: [address] [place] [address] Performed By: #### 1 9123-9, 27705-06, 81936-6 #### [facility] CLIA [id number] [address] [place] [address] [place] ESTIMATED GLOMERULAR FILTRATION RATE 107 mL/min/1.73m??? Normal >=60 [facility] Comment on above: Order Comment: Leanne men Type: BLOOD SPECIMEN Ordering Facility: [facility] Address: [address] [place] [address] Result Comment: Mary mated Glomerular Filtration Rate [...] GFR. Performed By: #### 1 9123-9, 2777-, 99518-2 #### [facility] CLIA [id number] [place] [address] [place] Glucose [Mass/Vol] 117 mg/dL High 74-99 [facility] Comment on above: Order Comment: Everettei men Type: BLOOD SPECIMEN Ordering Facility: [facility] Address: [address] [place] [address] Result Comment: The [place] [employer] (ADA) provides guidance for cutoff [...] Standards of Medical Care in Diabetes 2016, [place] [employer]. Diabetes Care. 2016.39(Suppl 1). Performed By: #### 1 9123-9, 2777-, 97370-2 #### [facility] CLIA [id number] [address] [place] [address] [place] Potassium [Moles/Vol] 3.9 mmol/L Normal 3.7-5.1 [facility] Comment on above: Order Comment: Leanne terry Type: BLOOD SPECIMEN Ordering Facility: [facility] Address: [address] [place] [address] Performed By: #### 1 9123-9, 27705-06, 10543-9 #### [facility] CLIA [id number] [address] [place] [address] [place] Sodium [Moles/Vol] 137 mmol/L Normal 136-144 [facility] Comment on above: Order Comment: Leanne terry Type: BLOOD SPECIMEN Ordering Facility: [facility] Address: [address] [place] [address] Performed By: #### 1 9123-9, 27705-06, 49093-4 #### [facility] CLIA [id number] [address] [place] [address] [place] Urea nitrogen [Mass/Vol] 13 mg/dL Normal 7-21 [facility] Comment on above: Order Comment: Leanne terry Type: BLOOD SPECIMEN Ordering Facility: [facility] Address: [address] [address] Performed By: #### 1 9123-9, 27705-06, 57829-0 #### [facility] CLIA [id number] [address] [place] [address] [place] CBC panel Auto (Bld)on 03-30 Erythrocyte distribution width (RBC) [Ratio] 12.8 % Normal 11.5-15.0 [facility] Comment on above: Order Comment: Speci men Type: BLOOD SPECIMEN Ordering Facility: [facility] Address: [address] [place] [address] Performed By: #### 5 8410-2 #### [facility] CLIA [id number] [address] [place] [address] [place] Hematocrit (Bld) [Volume fraction] 35.0 % Low 36.0-46.0 [facility] Comment on above: Order Comment: Speci men Type: BLOOD SPECIMEN Ordering Facility: [facility] Address: [address] [place] [address] Performed By: #### 5 8410-2 #### [facility] CLIA [id number] [address] [place] [address] [place] Hemoglobin (Bld) [Mass/Vol] 11.8 g/dL Normal 11.5-15.5 [facility] Comment on above: Order Comment: Speci men Type: BLOOD SPECIMEN Ordering Facility: [facility] Address: [address] [place] [address] Performed By: #### 5 8410-2 #### [facility] CLIA [id number] [address] [place] [address] [place] MCH (RBC) [Entitic mass] 30.6 pg Normal 26.0-34.0 [facility] Comment on above: Order Comment: Speci men Type: BLOOD SPECIMEN Ordering Facility: [facility] Address: [address] [place] [address] Performed By: #### 5 8410-2 #### [facility] CLIA [id number] [address] [place] [address] [place] MCHC (RBC) [Mass/Vol] 33.7 g/dL Normal 30.5-36.0 [facility] Comment on above: Order Comment: Speci men Type: BLOOD SPECIMEN Ordering Facility: [facility] Address: [address] [place] [address] Performed By: #### 5 8410-2 #### [facility] CLIA [id number] [address] [place] [address] [place] MCV (RBC) [Entitic vol] 90.7 fL Normal 80.0-100.0 [facility] Comment on above: Order Comment: Speci men Type: BLOOD SPECIMEN Ordering Facility: [facility] Address: [address] [place] [address] Performed By: #### 5 8410-2 #### [facility] CLIA [id number] [address] [place] [address] [place] Nucleated RBC (Bld) [#/Vol] 10*3/uL Normal <0.01 [facility] Comment on above: Order Comment: Speci men Type: BLOOD SPECIMEN Ordering Facility: [facility] Address: [address] [place] [address] Performed By: #### 5 8410-2 #### [facility] CLIA [id number] [address] [place] [address] [place] Platelet mean volume (Bld) [Entitic vol] 8.9 fL Low 9.0-12.7 [facility] Comment on above: Order Comment: Speci men Type: BLOOD SPECIMEN Ordering Facility: [facility] Address: [address] [place] [address] Performed By: #### 5 8410-2 #### [facility] CLIA [id number] [address] [place] [address] [place] Platelets (Bld) [#/Vol] 293 10*3/uL Normal 150-400 [facility] Comment on above: Order Comment: Speci men Type: BLOOD SPECIMEN Ordering Facility: [facility] Address: [address] [place] [address] Performed By: #### 5 8410-2 #### [facility] CLIA [id number] [address] [place] [address] [place] RBC (Bld) [#/Vol] 3.86 10*6/uL Low 3.90-5.20 [facility] Comment on above: Order Comment: Speci men Type: BLOOD SPECIMEN Ordering Facility: [facility] Address: [address] [place], [place] [id number] Performed By: #### 5 8410-2 #### [facility] CLIA [id number] [address] [place] [address] [place] WBC (Bld) [#/Vol] 11.25 10*3/uL High 3.70-11.00 [facility] Comment on above: Order Comment: Speci men Type: BLOOD SPECIMEN Ordering Facility: [facility] Address: [address] [place], [place] [address] Performed By: #### 5 8410-2 #### [facility] CLIA [id number] [address] OF [facility] CONSULT PROGon 03-30-2022 CONSULT PROG HNO ID: [id number] Author: Joslyn Jain APRN.PAINT ROLLER 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 Service: Pain Management Author Type: Nurse Practitioner [...] eGFR >= (more content not included)... Normal [facility] Magnesium [facility] Magnesium [Mass/Vol] 1.6 mg/dL Low 1.7-2.3 [facility] Comment on above: Order Comment: Speci men Type: BLOOD SPECIMEN Ordering Facility: [facility] Address: [address] [place] [address] Performed By: #### 1 9123-9, 2777-1, 87503-7 #### [facility] CLIA [id number] [place] [address] OF [facility] Phosphate [facility] 03-30 Phosphate [Mass/Vol] 2.9 mg/dL Normal 2.7-4.8 [facility] Comment on above: Order Comment: Speci [facility] Type: BLOOD SPECIMEN Ordering Facility: [facility] Address: [address] [place] [address] Performed By: #### 1 9123-9, 2777-1, 85219-4 #### [facility] CLIA [id number] [address] [place] [address] [place] ANES POSTPROC EVALon 022 ANES POSTPROC EVAL HNO ID: [id number] Author: Nathanael Craig DO Service: Anesthesiology Author [...] Vitals Vitals Value Taken Time BP 99/56 0524/22 0736 Temp 37 ?C (98.6 ?F) 03/29/22 [...] March 29, 2022 TIME: 8:29 AM CSN: [id number] Normal [facility] Basic metabolic 2000 panelon 03-29-2022 Anion gap [Moles/Vol] 9 mmol/L Normal 9-18 [facility] Comment on above: Order Comment: Speci men Type: BLOOD SPECIMEN Ordering Facility: [facility] Address: [address] [address] Performed By: #### 5 8410-2 #### [facility] CLIA [id number] [place] [address] [place] Calcium [Mass/Vol] 7.9 mg/dL Low 8.5-10.2 [facility] Comment on above: Order Comment: Speci men Type: BLOOD SPECIMEN Ordering Facility: [facility] Address: [address] [address] Performed By: #### 5 8410-2 #### [facility] CLIA [id number] [place] [address] [place] Chloride [Moles/Vol] 105 mmol/L Normal 97-105 [facility] Comment on above: Order Comment: Speci men Type: BLOOD SPECIMEN Ordering Facility: [facility] Address: [address] [address] Performed By: #### 5 8410-2 #### [facility] CLIA [id number] [address] [place] [address] [place] CO2 [Moles/Vol] 24 mmol/L Normal 22-30 [facility] Comment on above: Order Comment: Speci men Type: BLOOD SPECIMEN Ordering Facility: [facility] Address: [address] [place] [address] Performed By: #### 5 8410-2 #### [facility] CLIA [id number] [address] [place] [address] [place] Creatinine [Mass/Vol] 0.70 mg/dL Normal 0.58-0.96 [facility] Comment on above: Order Comment: Everettei men Type: BLOOD SPECIMEN Ordering Facility: [facility] Address: [address] [place] [address] Performed By: #### 5 8410-2 #### [facility] CLIA [id number] [address] [place] [address] [place] [facility] OF [place] ESTIMATED GLOMERULAR FILTRATION RATE 106 mL/min/1.73m??? Normal >=60 [facility] Comment on above: Order Comment: Speci men Type: BLOOD SPECIMEN Ordering Facility: [facility] Address: [address] [place] [address] Result Comment: Mary mated Glomerular Filtration Rate [...] GFR. Performed By: #### 5 8410-2 #### [facility] CLIA [id number] [address] [place] [address] [place] Glucose [Mass/Vol] 92 mg/dL Normal 74-99 [facility] Comment on above: Order Comment: Speci men Type: BLOOD SPECIMEN Ordering Facility: [facility] Address: [address] [place] [address] Result Comment: The [place] [employer] (ADA) provides guidance for cutoff [...] Standards of Medical Care in Diabetes 2016, [place] [employer]. Diabetes Care. 2016.39(Suppl 1). Performed By: #### 5 8410-2 #### [facility] CLIA [id number] [address] [place] [address] [place] Potassium [Moles/Vol] 4.1 mmol/L Normal 3.7-5.1 [facility] Comment on above: Order Comment: Leanne terry Type: BLOOD SPECIMEN Ordering Facility: [facility] Address: [address] [place] [address] Performed By: #### 5 8410-2 #### [facility] CLIA [id number] [address] [place] [address] [place] Sodium [Moles/Vol] 138 mmol/L Normal 136-144 [facility] Comment on above: Order Comment: Leanne terry Type: BLOOD SPECIMEN Ordering Facility: [facility] Address: [address] [place] [address] Performed By: #### 5 8410-2 #### [facility] CLIA [id number] [address] [place] [address] [place] Urea nitrogen [Mass/Vol] 12 mg/dL Normal 7-21 [facility] Comment on above: Order Comment: Leanne terry Type: BLOOD SPECIMEN Ordering Facility: [facility] Address: [address] [place] [address] Performed By: #### 5 8410-2 #### [facility] CLIA [id number] [address] [place] [address] [place] CBC W Auto Differential pane l (Bld)on 03-29-2022 Basophils (Bld) [#/Vol] 0.04 10*3/uL Normal <0.11 [facility] Comment on above: Order Comment: Speci men Type: BLOOD SPECIMEN Ordering Facility: [facility] Address: [address] [place] [address] Performed By: #### 5 7021-8 #### [facility] CLIA [id number] [address] [place] [address] [place] Basophils/100 WBC (Bld) 0.6 % Normal [facility] Comment on above: Order Comment: Speci men Type: BLOOD SPECIMEN Ordering Facility: [facility] Address: [address] [place] [address] Performed By: #### 5 7021-8 #### [facility] CLIA [id number] [address] [place] [address] STATES OF [facility] Differential cell count method Nom (Bld) Auto Normal [facility] Comment on above: Order Comment: Speci men Type: BLOOD SPECIMEN Ordering Facility: [facility] Address: [address] [place] [address] Performed By: #### 5 7021-8 #### [facility] CLIA [id number] [address] [place] [address] [place] Eosinophils (Bld) [#/Vol] 0.16 10*3/uL Normal <0.46 [facility] Comment on above: Order Comment: Speci men Type: BLOOD SPECIMEN Ordering Facility: [facility] Address: [address] [place] [address] Performed By: #### 5 7021-8 #### [facility] CLIA [id number] [address] [place] [address] [place] Eosinophils/100 WBC (Bld) 2.3 % Normal [facility] Comment on above: Order Comment: Speci men Type: BLOOD SPECIMEN Ordering Facility: [facility] Address: [address] [place] [address] Performed By: #### 5 7021-8 #### [facility] CLIA [id number] [address] [place] [address] [place] Erythrocyte distribution width (RBC) [Ratio] 12.8 % Normal 11.5-15.0 [facility] Comment on above: Order Comment: Speci men Type: BLOOD SPECIMEN Ordering Facility: [facility] Address: [address] [place] [address] Performed By: #### 5 7021-8 #### [facility] CLIA [id number] [address] [place] [address] [place] Hematocrit (Bld) [Volume fraction] 32.3 % Low 36.0-46.0 [facility] Comment on above: Order Comment: Speci men Type: BLOOD SPECIMEN Ordering Facility: [facility] Address: [address] [place] [address] Performed By: #### 5 7021-8 #### [facility] CLIA [id number] [address] [place] [address] [place] Hemoglobin (Bld) [Mass/Vol] 10.7 g/dL Low 11.5-15.5 [facility] Comment on above: Order Comment: Speci men Type: BLOOD SPECIMEN Ordering Facility: [facility] Address: [address] [place] [address] Performed By: #### 5 7021-8 #### [facility] CLIA [id number] [address] [place] [address] OF [place] IMMATURE GRAN % 0.3 % Normal [facility] Comment on above: Order Comment: Speci men Type: BLOOD SPECIMEN Ordering Facility: [facility] Address: [address] [place] [address] Performed By: #### 5 7021-8 #### [facility] CLIA [id number] [address] [place] [address] OF [place] IMMATURE GRAN ABS <0.03 Normal <0.10 [facility] Comment on above: Order Comment: Speci men Type: BLOOD SPECIMEN Ordering Facility: [facility] Address: [address] [place] [address] Performed By: #### 5 7021-8 #### [facility] CLIA [id number] [address] [place] [address] [place] Lymphocytes (Bld) [#/Vol] 1.39 10*3/uL Normal 1.00-4.00 [facility] Comment on above: Order Comment: Speci men Type: BLOOD SPECIMEN Ordering Facility: [facility] Address: [address] [place] [address] Performed By: #### 5 7021-8 #### [facility] CLIA [id number] [address] [place] [address] [place] Lymphocytes/100 WBC (Bld) 19.7 % Normal [facility] Comment on above: Order Comment: Speci men Type: BLOOD SPECIMEN Ordering Facility: [facility] Address: [address] [place] [address] Performed By: #### 5 7021-8 #### [facility] CLIA [id number] [address] [place] [address] [place] MCH (RBC) [Entitic mass] 29.8 pg Normal 26.0-34.0 [facility] Comment on above: Order Comment: Speci men Type: BLOOD SPECIMEN Ordering Facility: [facility] Address: [address] [place] [address] Performed By: #### 5 7021-8 #### [facility] CLIA [id number] [address] [place] [address] [place] MCHC (RBC) [Mass/Vol] 33.1 g/dL Normal 30.5-36.0 [facility] Comment on above: Order Comment: Speci men Type: BLOOD SPECIMEN Ordering Facility: [facility] Address: [address] [place] [address] Performed By: #### 5 7021-8 #### [facility] CLIA [id number] [address] [place] [address] [place] MCV (RBC) [Entitic vol] 90.0 fL Normal 80.0-100.0 [facility] Comment on above: Order Comment: Speci men Type: BLOOD SPECIMEN Ordering Facility: [facility] Address: [address] [place] [address] Performed By: #### 5 7021-8 #### [facility] CLIA [id number] [address] [place] [address] [place] Monocytes (Bld) [#/Vol] 0.55 10*3/uL Normal <0.87 [facility] Comment on above: Order Comment: Speci men Type: BLOOD SPECIMEN Ordering Facility: [facility] Address: [address] [place] [address] Performed By: #### 5 7021-8 #### [facility] CLIA [id number] [address] [place] [address] [place] Monocytes/100 WBC (Bld) 7.8 % Normal [facility] Comment on above: Order Comment: Speci men Type: BLOOD SPECIMEN Ordering Facility: [facility] Address: [address] [place] [address] Performed By: #### 5 7021-8 #### [facility] CLIA [id number] [address] [place] [address] [place] Neutrophils (Bld) [#/Vol] 4.88 10*3/uL Normal 1.45-7.50 [facility] Comment on above: Order Comment: Speci men Type: BLOOD SPECIMEN Ordering Facility: [facility] Address: [address] [place] [address] Performed By: #### 5 7021-8 #### [facility] CLIA [id number] [address] [place] [address] [place] Neutrophils/100 WBC (Bld) 69.3 % Normal [facility] Comment on above: Order Comment: Speci men Type: BLOOD SPECIMEN Ordering Facility: [facility] Address: [address] [place] [address] Performed By: #### 5 7021-8 #### [facility] CLIA [id number] [address] [place] [address] [place] Nucleated RBC (Bld) [#/Vol] 10*3/uL Normal <0.01 [facility] Comment on above: Order Comment: Speci men Type: BLOOD SPECIMEN Ordering Facility: [facility] Address: [address] [place] [address] Performed By: #### 5 7021-8 #### [facility] CLIA [id number] [address] [place] [address] [place] Nucleated RBC/100 WBC (Bld) [Ratio] 0.0 /100 WBC Normal [facility] Comment on above: Order Comment: Speci men Type: BLOOD SPECIMEN Ordering Facility: [facility] Address: [address] [place] [address] Performed By: #### 5 7021-8 #### [facility] CLIA [id number] [address] [place] [address] [place] Platelet mean volume (Bld) [Entitic vol] 9.0 fL Normal 9.0-12.7 [facility] Comment on above: Order Comment: Speci men Type: BLOOD SPECIMEN Ordering Facility: [facility] Address: [address] [place] [address] Performed By: #### 5 7021-8 #### [facility] CLIA [id number] [address] [place] [address] [place] Platelets (Bld) [#/Vol] 241 10*3/uL Normal 150-400 [facility] Comment on above: Order Comment: Speci men Type: BLOOD SPECIMEN Ordering Facility: [facility] Address: [address] [place] [address] Performed By: #### 5 7021-8 #### [facility] CLIA [id number] [address] [place] [address] [place] RBC (Bld) [#/Vol] 3.59 10*6/uL Low 3.90-5.20 [facility] Comment on above: Order Comment: Speci men Type: BLOOD SPECIMEN Ordering Facility: [facility] Address: [address] [place] [address] Performed By: #### 5 7021-8 #### [facility] CLIA [id number] [address] [place] [address] [place] WBC (Bld) [#/Vol] 7.04 10*3/uL Normal 3.70-11.00 [facility] Comment on above: Order Comment: Speci men Type: BLOOD SPECIMEN Ordering Facility: [facility] Address: [address] [place] [address] Performed By: #### 5 7021-8 #### [facility] CLIA [id number] [address] [place] [address] [place] CONSULT PROGon 03-29-2022 CONSULT PROG HNO ID: [id number] Author: Joslyn Jain 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 Normal [facility] Magnesium SerPl-mCncon 03-29 Magnesium [Mass/Vol] 1.4 mg/dL Low 1.7-2.3 [facility] Comment on above: Order Comment: Speci men Type: BLOOD SPECIMEN Ordering Facility: [facility] Address: [address] [place] [address] Performed By: #### 5 8410-2 #### [facility] [id number] [facility] NURSING PROGon 03-29-2022 NURSING PROG HNO ID: [id number] Author: Dipti Crowley RN Service: Nursing Author Type: Registered Nurse Type: Nursing Progress Note Filed: 03/29/2022 2:00 PM Note Text: Nursing Progress Note Patient Name: Mary Leal Patient Location: / __ Daily Note: Patient VSS. RA POx. Pain level better controlled now that E[employer] WARFARE SPECIALIST initiated. B/L Ropivacaine Tap Blocks with dressings [...] This note was completed by: Dipti Crowley [facility] NURSING PROG HNO ID: [id number] Author: Kev Leone, MAKI Service: ? Author Type: Registered Nurse Type: Nursing Progress Note Filed: 03/29/2022 3:53 AM Note Text: Nursing Progress Note Patient Name: Mary Leal Patient Location: / __ Daily Note: 0350: Pt states she is in 10/10 pain, pt has no PO pain meds ordered, page sent to surgery resident This note was completed by: Kev Leone [facility] PT EDon 03-29-2022 PT ED HNO ID: [id number] Author: Merced Morales DTR Service: Nutrition Therapy Author Type: Lyft Driver Type: Patient Education Filed: 03/29/2022 11:05 AM [...] March 29, 2022 TIME: 11:04 AM PAGER: [facility] Phosphate SerPl-mCncon 03-29 Phosphate [Mass/Vol] 2.9 mg/dL Normal 2.7-4.8 [facility] Comment on above: Order Comment: Speci men Type: BLOOD SPECIMEN Ordering Facility: [facility] Address: [address] [place] [address] Performed By: #### 5 8410-2 #### [facility] CLIA [id number] [address] [place] [address] [place] ANES PRE-OPon 03-28-2022 ANES PRE-OP HNO ID: [id number] Author: Anibal Bertrand MD Service: Anesthesiology Author [...] and consent discussed: yes. Patient / Responsible Libertarian agrees to proceed: yes Patient / Surrogate [...] (FLONASE) 50 mcg/actuation nasal spray Use 1 Leola in each nostril on (more content not included)... [facility] BRIEF OP NOTon 03-28-2022 BRIEF OP NOT HNO ID: [id number] Author: Nita Lamas MD Service: Colorectal Author Type: Fellow Type: Brief Op Note Filed: 03/28/2022 3:43 PM Note Text: BRIEF OPERATIVE NOTE - COLORECTAL SURGERY Log ID: [id number] Surgery/Procedure Date: 03/28/2022 Incision/Procedure Start Time: 9:47 AM Incision Close/Procedure End Time: 3:40 PM Surgeon(s) and Experimental Electronics Developer(s): Surgeon(s) and Role: * Mary Obrien MD [...] DATE: March 28, 2022 TIME: 3:42 PM [facility] NURSING PROGon 03-28-2022 NURSING PROG HNO ID: [id number] Author: Merced Lay RN Service: ? Author Type: Registered Nurse Type: Nursing Progress Note Filed: 03/28/2022 6:56 PM Note Text: Nursing Progress Note Patient Name: Mary Leal Patient Location: [id number] __ Transfer Note: Patient transferred into room/unit PK3B22 in stable condition. Actions taken: No futher actions taken at this time. Will continue to monitor and check with patient. Paged surgical team. Pt has TAP blocks, but orders were discontinued from PACU. New orders for blocks need to be placed in eMAR. Awaiting call back or orders. This note was completed by: Merced Lay [facility] NURSING PROG HNO ID: [id number] Author: Monica Nicole RN Service: Nursing Author Type: Registered Nurse Type: Nursing Progress Note Filed: 03/28/2022 6:35 PM Note Text: Nursing Progress Note Patient Name: Mary Leal Patient Location: [facility] OR POOL/[facility] OR POOL __ Daily Note: 1750: Dr. Novak notified of patients increase in heart rate from arrival to post op. Patient HR now maintaining in the 120s. 1830: consultant [employer] and [employer]. vice president [employer] (ex ) rounding at patient bedside. Dressing and abdomen assessed- drainage to be expected on island dressing. Notified him of patients HR running high and notified that patient normally takes 50mg atenolol but held today for surgery. Patient's pain managed and other VS stable at this time. consultant [employer] and [employer]. vice president [employer] (ex ) is OK with patient going to regular nursing floor at this time. Family updated. This note was completed by: Monica Nicole [facility] NURSING PROG HNO ID: [id number] Author: Vianney Chacon RN Service: Nursing Author [...] (RECOMMENDATION): None Electronically Signed By: Vianney Chacon [facility] OPERATIVE NOon 03-28-2022 OPERATIVE NO HNO ID: [id number] Author: Mary Obrien MD Service: Colorectal Author Type: Physician Type: Operative Report Filed: 03/28/2022 5:06 PM Note Text: COLON AND RECTAL SURGERY OPERATIVE REPORT PATIENT NAME: Mary Leal ADMISSION DATE: 03/28/2022 LOG ID: [id number] SURGERY/PROCEDURE DATE: 03/28/2022 INCISION/PROCEDURE START TIME: 9:47 AM INCISION CLOSE/PROCEDURE END TIME: 3:40 PM AGE: [age] year old SEX: female SURGEON(S)/PROCEDURALI ST(S) AND RECORDS COORDINATOR(S): Surgeon(s) and Role: * Mary Obrien MD [...] The abdome (more content not included)... Normal [facility] SURGICAL PATHOLOGYon CASE REPORT Normal [facility] Comment on above: Order Comment: Speci men Type: BLOOD SPECIMEN Ordering Facility: [facility] Address: [address] [place] [address] Result Comment: Surg ica Pathology Report Case: [id number] Authorizing Provider: Mary Obrien MD Collected: 03/28/2022 01:43 PM Ordering Location: [facility] Received: 03/28/2022 04:10 PM Operating Room Pathologist: Alexei Rodriguez MD Specimen: COLON RESECTION, terminal ileum with ileostomy Performed By: #### 5 7021-8 #### [facility] CLIA [id number] [place] [address] CLINICAL HISTORY ILEORECTAL ANASTOMOSIS, TAKEDOWN OF ILEOSTOMY Normal [facility] Comment on above: Order Comment: Speci men Type: BLOOD SPECIMEN Ordering Facility: [facility] Address: [address] [place], [place] [id number] Performed By: #### 5 7021-8 #### [facility] CLIA [id number] OF [place] DIAGNOSIS COMMENT The histologic findings are nonspecific [...] evidence of associated inflammation or infectious organisms. [facility] Comment on above: Order Comment: Speci men Type: BLOOD SPECIMEN Ordering Facility: [facility] Address: [address] [place] [address] Performed By: #### 5 7021-8 #### [facility] CLIA [id number] [address] [place] [address] FINAL DIAGNOSIS [facility] Comment on above: Order Comment: Speci men Type: BLOOD SPECIMEN Ordering Facility: [facility] Address: [address] [place] [address] Result Comment: Nephi n and terminal ileum with ileostomy, resection: - Colon with patchy active colitis, submucosal fibrosis, acute serositis, and fibrovascular adhesions (see comment). - Small bowel with focal transmural defect, acute serositis, fibrovascular adhesions, and changes consistent with ileostomy site. - Benign lymph nodes. JEL 03/31/2022 Performed By: #### 5 7021-8 #### [facility] CLIA [id number] [address] [place] [address] FINAL PERFORMING LAB [facility] Comment on above: Order Comment: Speci men Type: BLOOD SPECIMEN Ordering Facility: [facility] Address: [address] [address] Result Comment: Diag nostic interpretation performed at [facility], [address] [place] [address] CLIA# [id number] Product Technology Scientist: Rajiv Anderson M.D. Performed By: #### 5 7021-8 #### [facility] CLIA [id number] [place] [address] [place] GROSS DESCRIPTION Normal [facility] Comment on above: Order Comment: Speci men Type: BLOOD SPECIMEN Ordering Facility: [facility] Address: [address], [place] [address] Result Comment: A. C OLON RESECTION. Received [...] diverticula. The serosa is jaimes-pink and smooth. Try On Baster sections are submitted from distal to proximal [...] 2022 9:53 AM Gross examination performed at [facility], [address] [place] [address] CLIA # [id number] Performed By: #### 5 7021-8 #### [facility] CLIA [id number] [address] [place] [address] [place] Q - CBC W/DIFF AND PLTon BASOABS 59 cells/uL Normal 0-200 [facility] Texture Artist Comment on above: Order Comment: [facility] performed at: [facility], [address] , [address] [place] [address], [address], Product Technology Scientist: Gopal Hamilton MD [facility] Date/Time: [facility] Results Received Date/Time: [facility] Reported Date/Time: Performed By: #### 9 68T, 71332C, %8293, 72336A, 6399, 496X #### [facility] Default [address] [place] [address] Basophils/100 WBC (Bld) 1.0 % Normal [facility] Specialist Comment on above: Order Comment: [facility] performed at: [facility], [address] , [address] [place] [address], [address], Product Technology Scientist: Gopal Hamilton MD [facility] Date/Time: [facility] Results Received Date/Time: [facility] Reported Date/Time: Performed By: #### 9 68T, 15501H, %8293, 81559T, 6399, 496X #### [facility] Default [address] [place] [address] EOSABS 171 cells/uL Normal 15-500 [facility] Specialist Comment on above: Order Comment: [facility] performed at: [facility], [address] , [address] [place] [address], [address] [place] [address], Product Technology Scientist: Gopal Hamilton MD [facility] Date/Time: [facility] Results Received Date/Time: [facility] Reported Date/Time: Performed By: #### 9 68T, 97750L, %8293, 16950H, 6399, 496X #### [facility] Default [address] [place] [address] Eosinophils/100 WBC (Bld) 2.9 % Normal [facility] Comment on above: Order Comment: [facility] performed at: [facility], [address], [address] [place] [address], [address] [place] [address], Product Technology Scientist: Gopal Hamilton MD [facility] Date/Time: [facility] Results Received Date/Time: [facility] Reported Date/Time: Performed By: #### 9 68T, 27734Q, %8293, 20982V, 6399, 496X #### [facility] [address] [place] [address] Erythrocyte distribution width (RBC) [Ratio] 12.9 % Normal 11.0-15.0 [facility] Comment on above: Order Comment: [facility] performed at: [facility], [address] , [address] [place] [address], [address] [place] [address], Product Technology Scientist: Gopal Hamilton MD [facility] Date/Time: [facility] Results Received Date/Time: [facility] Reported Date/Time: Performed By: #### 9 68T, 13800L, %8293, 70052V, 6399, 496X #### [facility] Default [address] [place] [address] Hematocrit (Bld) [Volume fraction] 38.1 % Normal 35.0-45.0 [facility] Texture Artist Comment on above: Order Comment: [facility] performed at: [facility], [address] [facility], [address] [place] [address], [address] [place] [address], Product Technology Scientist: Gopal Hamilton MD [facility] Date/Time: [facility] Results Received Date/Time: [facility] Reported Date/Time: Performed By: #### 9 68T, 04319R, %8293, 31157J, 6399, 496X #### [facility] [address] [place] [address] Hemoglobin (Bld) [Mass/Vol] 12.9 g/dL Normal 11.7-15.5 [facility] Text[facility] Artist Comment on above: Order Comment: [facility] performed at: [facility], [address] , [address] [place] [address], [address] [place] [address], Product Technology Scientist: Gopal Hamilton MD [facility] Date/Time: [facility] Results Received Date/Time: [facility] Reported Date/Time: Performed By: #### 9 68T, 96231S, %8293, 64638I, 6399, 496X #### [facility] [address] [place] [address] Lymphocytes (Bld) [#/Vol] 1.375 10*3/uL Normal 850-3900 [facility] Text[facility] Artist Comment on above: Order Comment: [facility] performed at: [facility], [facility], [address] [facility], [address] [place] [address], [address] [place] [address], Product Technology Scientist: Gopal Hamilton MD [facility] Date/Time: [facility] Results Received Date/Time: [facility] Reported Date/Time: Performed By: #### 9 68T, 42099Z, %8293, 49775F, 6399, 496X #### [facility] [address] [place] [address] Lymphocytes/100 WBC (Bld) 23.3 % Normal [facility] Comment on above: Order Comment: [facility] performed at: [facility], [address] [facility], [address] [place] [address], [address] [place] [address], Product Technology Scientist: Gopal Hamilton MD [facility] Date/Time: [facility] Results Received Date/Time: [facility] Reported Date/Time: Performed By: #### 9 68T, 16567W, %8293, 17646G, 6399, 496X #### [facility] [address] [place] [address] MCH (RBC) [Entitic mass] 30.0 pg Normal 27.0-33.0 [facility] Comment on above: Order Comment: [facility] performed at: [facility], [facility], [address] [facility], [address] [place] [address], [address] [place] [address], Product Technology Scientist: Gopal Hamilton MD [facility] Date/Time: [facility] Results Received Date/Time: [facility] Reported Date/Time: Performed By: #### 9 68T, 77451Q, %8293, 59986E, 6399, 496X #### [facility] [address] [place] [address] MCHC (RBC) [Mass/Vol] 33.9 g/dL Normal 32.0-36.0 [facility] Comment on above: Order Comment: [facility] performed at: [facility], [facility], [address] [place] [address], [address] [place] [address], [address] [place] [address], Product Technology Scientist: Gopal Hamilton MD [facility] Date/Time: [facility] Results Received Date/Time: [facility] Reported Date/Time: Performed By: #### 9 68T, 43986G, %8293, 21486H, 6399, 496X #### [facility] Default [address] [place] [address] MCV (RBC) [Entitic vol] 88.6 fL Normal 80.0-100.0 [facility] Specialist Comment on above: Order Comment: [facility] performed at: [facility], [address] [facility], [address] [place] [address], [address] [place] [address], Product Technology Scientist: Gopal Hamilton MD [facility] Date/Time: [facility] Results Received Date/Time: [facility] Reported Date/Time: Performed By: #### 9 68T, 62294J, %8293, 78111J, 6399, 496X #### [facility] [address] [place] [address] MONOABS 460 cells/uL Normal 200-950 [facility] Texture Artist Comment on above: Order Comment: [facility] performed at: [facility], [address] [facility], [address] [place] [address], [address] [place] [address], Product Technology Scientist: Gopal Hamilton MD [facility] Date/Time: [facility] Results Received Date/Time: [facility] Reported Date/Time: Performed By: #### 9 68T, 36235E, %8293, 77682B, 6399, 496X #### [facility] [address] [place] [address] Monocytes/100 WBC (Bld) 7.8 % Normal [facility] Specialist Comment on above: Order Comment: [facility] performed at: [facility], [address] [facility], [address] [place] [address], [address] [place] [address], Product Technology Scientist: Gopal Hamilton MD [facility] Date/Time: [facility] Results Received Date/Time: [facility] Reported Date/Time: Performed By: #### 9 68T, 97008Y, %8293, 66792Z, 6399, 496X #### [facility] Default [address] [place] [address] Neutrophils (Bld) [#/Vol] 3.835 10*3/uL Normal 1917-3810 [facility] Specialist Comment on above: Order Comment: [facility] performed at: [facility], [facility], [address] [facility], [address] [place] [address], [address] [place] [address], Product Technology Scientist: Gopal Hamilton MD [facility] Date/Time: [facility] Results Received Date/Time: [facility] Reported Date/Time: Performed By: #### 9 68T, 49479S, %8293, 01575M, 6399, 496X #### [facility] Default [address] [place] [address] Neutrophils/100 WBC (Bld) 65 % Normal [facility] Specialist Comment on above: Order Comment: [facility] performed at: [facility], [address] , [address] [place] [address], [address] [place] [address], Product Technology Scientist: Gopal Hamilton MD [facility] Date/Time: [facility] Results Received Date/Time: [facility] Reported Date/Time: Performed By: #### 9 68T, 54218P, %8293, 85389B, 6399, 496X #### [facility] Default [address] [place] [address] Platelet mean volume (Bld) [Entitic vol] 9.3 fL Normal 7.5-12.5 [facility] Texture Artist Comment on above: Order Comment: [facility] performed at: [facility], [address] [facility], [address] [place] [address], [address] [place] [address], Product Technology Scientist: Gopal Hamilton MD [facility] Date/Time: [facility] Results Received Date/Time: [facility] Reported Date/Time: Performed By: #### 9 68T, 77425D, %8293, 11991T, 6399, 496X #### [facility] Default [address] [place] [address] Platelets (Bld) [#/Vol] 409 10*3/uL High 140-400 [facility] Comment on above: Order Comment: [facility] performed at: [facility], [address], [address] [place] [address], [address], Product Technology Scientist: Gopal Hamilton MD [facility] Date/Time: [facility] Results Received Date/Time: [facility] Reported Date/Time: Performed By: #### 9 68T, 47571W, %8293, 04973H, 6399, 496X #### [facility] Default [address] [place] [address] RBC (Bld) [#/Vol] 4.30 10*6/uL Normal 3.80-5.10 [facility] Comment on above: Order Comment: [facility] performed at: [facility], [address], [address] [place] [address], [address] [place] [address], Product Technology Scientist: Gopal Hamilton MD [facility] Date/Time: [facility] Results Received Date/Time: [facility] Reported Date/Time: Performed By: #### 9 68T, 12603K, %8293, 71509R, 6399, 496X #### [facility] Default [address] [place] [address] WBC (Bld) [#/Vol] 5.9 10*3/uL Normal 3.8-10.8 [facility] Comment on above: Order Comment: [facility] performed at: [facility], [facility], [address], [address] [place] [address], [address], Product Technology Scientist: Gopal Hamilton MD [facility] Date/Time: [facility] Results Received Date/Time: [facility] Reported Date/Time: Performed By: #### 9 68T, 01690E, %8293, 36074I, 6399, 496X #### [facility] [address] [place] [address] Q - COMPREHENSIVE METABOLIC PANEL W/EGFRon 03-10-2022 Albumin [Mass/Vol] 4.3 g/dL Normal 3.6-5.1 [facility] Comment on above: Order Comment: [facility] performed at: [facility], [facility], [address] [facility], [address] [place] [address], [address] [place] [address], Product Technology Scientist: Gopal Hamilton MD [facility] Date/Time: [facility] Results Received Date/Time: [facility] Reported Date/Time: Performed By: #### 9 68T, 28658I, %8293, 87573H, 6399, 496X #### [facility] Default [address] [place] [address] Albumin/Globulin [Mass ratio] 1.7 {ratio} Normal 1.0-2.5 [facility] Texture Artist Comment on above: Order Comment: [facility] performed at: [facility], [facility], [address] [facility], [address] [place] [address], [address] [place] [address], Product Technology Scientist: Gopal Hamilton MD [facility] Date/Time: [facility] Results Received Date/Time: [facility] Reported Date/Time: Performed By: #### 9 68T, 92589Q, %8293, 44256G, 6399, 496X #### [facility] [address] [place] [address] ALP [Catalytic activity/Vol] 134 U/L High 31-125 [facility] Texture Artist Comment on above: Order Comment: [facility] performed at: [facility], [facility], [address] [facility], [address] [place] [address], [address] [place] [address], Product Technology Scientist: Gopal Hamilton MD [facility] Date/Time: [facility] Results Received Date/Time: [facility] Reported Date/Time: Performed By: #### 9 68T, 78583T, %8293, 06499D, 6399, 496X #### [facility] [address] [place] [address] ALT [Catalytic activity/Vol] 41 U/L High 6-29 [facility] Comment on above: Order Comment: [facility] performed at: [facility], [facility], [address] [facility], [address] [place] [address], [address] [place] [address], Product Technology Scientist: Gopal Hamilton MD [facility] Date/Time: [facility] Results Received Date/Time: [facility] Reported Date/Time: Performed By: #### 9 68T, 62737O, %8293, 01306Y, 6399, 496X #### [facility] Default [address] [place] [address] AST [Catalytic activity/Vol] 33 U/L Normal 10-35 [facility] Comment on above: Order Comment: [facility] performed at: [facility], [facility], [address] [facility], [address] [place] [address], [address] [place] [address], Product Technology Scientist: Gopal Hamilton MD [facility] Date/Time: [facility] Results Received Date/Time: [facility] Reported Date/Time: Performed By: #### 9 68T, 62137J, %8293, 48230I, 6399, 496X #### [facility] Default [address] [place] [address] BUN/CREA 17 NOT APPLICABLE Normal 6-22 [facility] Comment on above: Order Comment: [facility] performed at: [facility], [facility], [address] , [address] [place] [address], [address] [place] [address], Product Technology Scientist: Gopal Hamilton MD [facility] Date/Time: [facility] Results Received Date/Time: [facility] Reported Date/Time: Performed By: #### 9 68T, 28994E, %8293, 23141T, 6399, 496X #### [facility] Default [address] [place] [address] Calcium [Mass/Vol] 9.6 mg/dL Normal 8.6-10.2 [facility] Specialist Comment on above: Order Comment: [facility] performed at: [facility], [facility], [address] [facility], [address] [place] [address], [address] [place] [address], Product Technology Scientist: Gopal Hamilton MD [facility] Date/Time: [facility] Results Received Date/Time: [facility] Reported Date/Time: Performed By: #### 9 68T, 00338L, %8293, 15661B, 6399, 496X #### [facility] [address] [place] [address] Chloride [Moles/Vol] 103 mmol/L Normal 98-110 [facility] Comment on above: Order Comment: [facility] performed at: [facility], [facility], [address] [facility], [address] [place] [address], [address] [place] [address], Product Technology Scientist: Gopal Hamilton MD [facility] Date/Time: [facility] Results Received Date/Time: [facility] Reported Date/Time: Performed By: #### 9 68T, 39151R, %8293, 80132X, 6399, 496X #### [facility] Default [address] [place] [address] CO2 [Moles/Vol] 27 mmol/L Normal 20-32 [facility] Specialist Comment on above: Order Comment: [facility] performed at: [facility], [facility], [address] [facility], [address] [place] [address], [address] [place] [address], Product Technology Scientist: Gopal Hamilton MD [facility] Date/Time: [facility] Results Received Date/Time: [facility] Reported Date/Time: Performed By: #### 9 68T, 21009A, %8293, 66310H, 6399, 496X #### [facility] [address] [place] [address] Creatinine [Mass/Vol] 0.65 mg/dL Normal 0.50-1.10 [facility] [place] [facility] Artist Comment on above: Order Comment: [facility] performed at: [facility], [facility], [address] [place] [address], [address] [place] [address], [address] [place] [address], Product Technology Scientist: Gopal Hamilton MD [facility] Date/Time: [facility] Results Received Date/Time: [facility] Reported Date/Time: Performed By: #### 9 68T, 76736U, %8293, 81214I, 6399, 496X #### [facility] [address] [place] [address] eGFRAA ([facility]) 121 mL/min/1.73m2 Normal > OR = 60 [facility] Comment on above: Order Comment: [facility] performed at: [facility], [facility], [address] [place] [address], [address] [place] [address], [address] [place] [address], Product Technology Scientist: Gopal Hamilton MD [facility] Date/Time: [facility] Results Received Date/Time: [facility] Reported Date/Time: Performed By: #### 9 68T, 08214W, %8293, 08499S, 6399, 496X #### [facility] Default [address] [place] [address] eGFRNAA ([facility]) 104 mL/min/1.73m2 Normal > OR = 60 No rtjennifer [place] Text[employer] Artist Comment on above: Order Comment: [facility] performed at: [facility], [facility], [address] [place] [address], [address] [place] [address], [address] [place] [address], Product Technology Scientist: Gopal Hamilton MD [facility] Date/Time: [facility] Results Received Date/Time: [facility] Reported Date/Time: Performed By: #### 9 68T, 81314X, %8293, 88828W, 6399, 496X #### [facility] Default [address] [place] [address] Globulin (S) [Mass/Vol] 2.5 g/dL Normal 1.9-3.7 [facility] Texture Artist Comment on above: Order Comment: [facility] performed at: [facility], [facility], [address] [place] [address], [address] [place] [address], [address], Product Technology Scientist: Gopal Hamilton MD [facility] Date/Time: [facility] Results Received Date/Time: [facility] Reported Date/Time: Performed By: #### 9 68T, 59158R, %8293, 20621A, 6399, 496X #### [facility] Default [address] [place] [address] Glucose [Mass/Vol] 94 mg/dL Normal 65-99 [facility] Specialist Comment on above: Order Comment: [facility] performed at: [facility], [facility], [address] [place] [address], [address] [place] [address], [phone], Product Technology Scientist: Gopal Hamilton MD [facility] Collection Date/Time: [facility] Results Received Date/Time: [facility] Reported Date/Time: Result Comment: Fasting reference interval Performed By: #### 9 68T, 51394N, %8293, 90789S, 6399, 496X #### [facility] Default [address] [place] [address] Potassium [Moles/Vol] 4.4 mmol/L Normal 3.5-5.3 [facility] Texture Artist Comment on above: Order Comment: [facility] Testing performed at: [facility], [address] [place] [address], [address] [place] [address], [address] [place] [address], Product Technology Scientist: Gopal Hamilton MD [facility] Collection Date/Time: [facility] Results Received Date/Time: [facility] Reported Date/Time: Performed By: #### 9 68T, 68943K, %8293, 30705D, 6399, 496X #### [facility] Default [address] [place] [address] Protein [Mass/Vol] 6.8 g/dL Normal 6.1-8.1 Jay gambino [place] Texture Artist Comment on above: Order Comment: [facility] Testing performed at: [facility], [facility], [address] [place] [address], [address] [place] [address], [address] [place] [address], Product Technology Scientist: Gopal Hamilton MD [facility] Collection Date/Time: [facility] Results Received Date/Time: [facility] Reported Date/Time: Performed By: #### 9 68T, 72284T, %8293, 69723X, 6399, 496X #### [facility] Default [address] [place] [address] Sodium [Moles/Vol] 138 mmol/L Normal 135-146 Jay gambino [place] Texture Artist Comment on above: Order Comment: [facility] Testing performed at: [facility], [facility], [address] [place] [address], [address] [place] [address], [address] [place] [address], Product Technology Scientist: Gopal Hamilton MD [facility] Collection Date/Time: [facility] Results Received Date/Time: [facility] Reported Date/Time: Performed By: #### 9 68T, 86568T, %8293, 62612O, 6399, 496X #### [facility] Default [address] [place] [address] TBIL <0.3 Normal 0.2-1.2 [place] Texture Artist Comment on above: Order Comment: [facility] Testing performed at: [facility], [facility], [address] [place] [address], [address] [place] [address], [address] [place] [address], Product Technology Scientist: Gopal Hamilton MD [facility] Collection Date/Time: [facility] Results Received Date/Time: [facility] Reported Date/Time: Performed By: #### 9 68T, 14956W, %8293, 75895Y, 6399, 496X #### [facility] Default [address] [place] [address] Urea nitrogen [Mass/Vol] 11 mg/dL Normal 7-25 [facility] Texture Artist Comment on above: Order Comment: [facility] Testing performed at: [facility], [facility], [address] [place] [address], [address] [place] [address], [address] [place] [address], Product Technology Scientist: Gopal Hamilton MD [facility] Collection Date/Time: [facility] Results Received Date/Time: [facility] Reported Date/Time: Performed By: #### 9 68T, 31798R, %8293, 63895E, 6399, 496X #### [facility] Default [address] [place] [address] Q - DLDL REFLEXon 03-10-2022 Cholesterol in LDL [Mass/Vol] 87 mg/dL Normal <100 [facility] Texture Artist Comment on above: Order Comment: [facility] Testing performed at: [facility], [address] [facility], [address] [place] [address], [address] [place] [address], Product Technology Scientist: Gopal Hamilton MD [facility] Collection Date/Time: [facility] Results Received Date/Time: [facility] Reported Date/Time: Result Comment: Desirable range <100 mg/dL for primary prevention; <70 mg/dL for patients with CHD or diabetic patients with > or = 2 CHD risk factors. Performed By: #### 9 68T, 89587N, %8293, 02007W, 6399, 496X #### [facility] Default [address] [place] [address] Q - HEMOGLOBIN A1Con 022 HEMOGLOBIN A1c 5.0 % of total Hgb Normal <5.7 No rthern [place] Texture Artist Comment on above: Order Comment: [facility] Testing performed at: [facility], [address] [facility], [address] [place] [address], [phone], Product Technology Scientist: Gopal Hamilton MD [facility] Collection Date/Time: [facility] [...] diagnosis of diabetes in children. According to [place] Diabetes Association (ADA) guidelines, hemoglobin A1c <7.0% represents optimal control in non- diabetic patients. Different metrics may apply to specific patient populations. Standards of Medical Care in Diabetes(ADA). Performed By: #### 9 68T, 52205D, %8293, 10070D, 6399, 496X #### [facility] Default [address] [place] [address] Q - Lipid Panelon 03-10-2022 Cholesterol [Mass/Vol] 230 mg/dL High <200 [facility] Texture Artist Comment on above: Order Comment: [facility] Testing performed at: [facility], [address] [facility], [address] [place] [address], [phone], Product Technology Scientist: Gopal Hamilton MD [facility] Collection Date/Time: [id number] [facility] Results Received Date/Time: [id number] [facility] Reported Date/Time: Performed By: #### 9 68T, 75144X, %8293, 69104F, 6399, 496X #### [facility] Default [address] [place] [address] Cholesterol in HDL [Mass/Vol] 52 mg/dL Normal > OR = 50 [facility] Texture Artist Comment on above: Order Comment: [facility] Testing performed at: [facility], [address] , [address] [place] [address], [address] [place] [address], Product Technology Scientist: Gopal Hamilton MD [facility] Collection Date/Time: [facility] Results Received Date/Time: [facility] Reported Date/Time: Performed By: #### 9 68T, 43052Q, %8293, 51464R, 6399, 496X #### [facility] Default [address] [place] [address] Cholesterol.total/Cho lesterol in HDL [Mass ratio] 4.4 {ratio} Normal <5.0 [facility] Texture Artist Comment on above: Order Comment: [facility] Testing performed at: [facility], [address] , [address] [place] [address], [address] [place] [address], Product Technology Scientist: Gopal Hamilton MD [facility] Collection Date/Time: [facility] Results Received Date/Time: [facility] Reported Date/Time: Performed By: #### 9 68T, 20169Q, %8293, 82661W, 6399, 496X #### [facility] Default [address] [place] [address] LDLD SEE NOTE Normal [facility] Texture Artist Comment on above: Order Comment: [facility] Testing performed at: [facility], [address] [facility], [address] [place] [address], [address] [place] [address], Product Technology Scientist: Gopal Hamilton MD [facility] Collection Date/Time: [facility] [...] LDL-C. Estevan SCHILLING et al. ZANA. 2013;310(19): 9357-6667 ([email or web address]/faq/[email or web address]) Performed By: #### 9 68T, 97431V, %8293, 14717P, 6399, 496X #### [facility] Default [address] [place] [address] NON HDL CHOLESTEROL 178 mg/dL (calc) High <130 [facility] Texture Artist Comment on above: Order Comment: [facility] Testing performed at: [facility], [address] [facility], [address] [place] [address], [phone], Product Technology Scientist: Gopal Hamilton MD [facility] Collection Date/Time: [facility] Results Received Date/Time: [facility] Reported Date/Time: Result Comment: For patients with diabetes plus 1 major ASCVD risk factor, treating to a non-HDL-C goal of <100 mg/dL (LDL-C of <70 mg/dL) is considered a therapeutic option. Performed By: #### 9 68T, 49826P, %8293, 54954H, 6399, 496X #### [facility] Default [address] [place] [address] Triglyceride [Mass/Vol] 410 mg/dL High <150 [facility] Texture Artist Comment on above: Order Comment: [facility] Testing performed at: [facility], [address] [facility], [address] [place] [address], [phone], Product Technology Scientist: Gopal Hamilton MD [facility] Collection Date/Time: [facility] Results Received Date/Time: [facility] Reported Date/Time: Result Comment: If a non-fasting specimen was collected, consider repeat triglyceride testing on a fasting specimen if clinically indicated. João et al. J. of Clin. Lipidol. 2015;9:129-169. Performed By: #### 9 68T, 33659S, %8293, 34505P, 6399, 496X #### [facility] Default [address] [place] [address] Q - TROPONIN Ion 03-10-2022 TROPONIN I 3 ng/L Normal < OR = 47 [facility] Texture Artist Comment on above: Order Comment: [facility] Testing performed at: [employer], [employer] [employer], [address], [address] [facility], [place], [address], Product Technology Scientist: Gopal Hamilton MD [facility] Collection Date/Time: [facility] Results Received Date/Time: [facility] Reported Date/Time: Result Comment: In accord with published recommendations, serial testing of troponin I at intervals of 2 to 4 hours for up to 12 to 24 hours is suggested in order to corroborate a single troponin I result. An elevated troponin alone is not sufficient to make the diagnosis of SD. Performed By: #### 9 68T, 82290M, %8293, 36912K, 6399, 496X #### [facility] Default [address] [place] [address] UA DIP, URINE (POC)on 2021 BILIRUBIN UA (POCT) Negative Negative [facility] CLARITY UA (POCT) Clear [facility] COLOR UA (POCT) Yellow [facility] GLUCOSE UA (POCT) Negative Negative mg/dL [facility] HEMOGLOBIN/BLOOD UA (POCT) Negative Negative [facility] KETONE UA (POCT) Negative Negative mg/dL [facility] LEUKOCYTES UA (POCT) Negative Negative [facility] NITRITE UA (POCT) Negative Negative [facility] PH UA (POCT) 5.0 4.5 - 8.0 [facility] Protein Ql (U) Trace Abnormal Negative mg/dL [facility] SPECIFIC GRAVITY UA (POCT) >=1.030 1.005 - 1.030 [facility] UROBILINOGEN UA (POCT) 0.2 E.U./dL Normal E.U./dL [facility] CNTHERAPYon 01-31-2022 CNTHERAPY OT/PT/Speech Visit (PTLHO) MARY LEAL ([id number]) 1970 F Date Time Provider Department 01/31/22 10:30 AM [facility] Date Time Provider Department [place] 01/31/2022 10:30 AM [id number] Reason for Visit: Physical Therapy [503] [...] (FLONASE) 50 mcg/actuation nasal spray Use 1 Leola in each nostril once daily. - carBAMazepine [...] Take 50 mg by mouth once daily. [facility] CNTHERAPYon 01-24-2022 CNTHERAPY OT/PT/Speech Visit (PTLHO) MARY LEAL ([id number]) 1970 F Date Time Provider Department 01/24/22 10:30 AM [facility] Date Time Provider Department [place] 01/24/2022 10:30 AM [id number], JILL KALEIGH [facility] Reason for Visit: Physical Therapy [503] Primary [...] (FLONASE) 50 mcg/actuation nasal spray Use 1 Leola in each nostril once daily. - carBAMazepine [...] Take 50 mg by mouth once daily. [facility] CNTHERAPYon 01-18-2022 CNTHERAPY OT/PT/Speech Visit (PTLHO) MARY LEAL ([id number]) 1970 F Date Time Provider Department 01/18/22 12:15 PM [facility] Provider Department [place] 01/18/2022 12:15 PM [id number]: [facility] Eval [...] (FLONASE) 50 mcg/actuation nasal spray Use 1 Leola in each nostril once daily. - carBAMazepine [...] mg by mouth once daily. Letter Text [facility] 12-27-2021 [facility] HNO ID: [id number] Author: Sonido Owen MD Service: Colorectal Author Type: Resident Type: Discharge Summary Filed: 12/27/2021 3:55 PM Note Text: Attestation signed by Mary Obrien MD at 12/29/2021 4:11 PM [facility] STAFF PHYSICIAN NOTE OF PERSONAL INVOLVEMENT [...] PACU and was transferred to the [facility]. Postoperatively, the patient recovered well. Her [...] 50 mg Finesse (more content not included)... [facility] CONSULTon 12-27-2021 CONSULT HNO ID: [id number] Author: Dai Hines RN Service: Wound/Ostomy Author Type: Registered Nurse Type: Consults Filed: 12/27/2021 3:32 PM Note Text: STOMA CARE POST-OPERATIVE ASSESSMENT AND PATIENT EDUCATION Patient Name: Mary Leal Date: December 27, 2021 Time: 3:20 PM ET Care Outcome: Ms. Leal was seen today on the [facility] for ostomy education and a pouch change lesson. ET's Next Scheduled Visit: Complete. STOMA ASSESSMENT Stoma type: Loop ileostomy Diameter: 35 mm with and extra 1 mm cut on the medial side of the pouch. Location: RLQ Protrusion: Budded, Os points downward Mucosal condition and color: Red and Welcome and moist. Boni: No Mucocutaneous Junction: Intact [...] one piece cut to fit drainable pouch (#18748) and Coloplast Brava moldable ring (2mm) #[id number]. Brava barrier strips, product # [id number] applied around the border of the pouch. INCISION Degree of approximation: 100% Approximating devices: Surgical Glue Drainage: None Method of Management: SINGEING TORCH OPERATOR Time Increment: 45 minutes Comments: NA [...] FROM THE CHART OR MODIFY PRINTED COPY. [facility] NURSING PROGon 12-27-2021 NURSING PROG HNO ID: [id number] Author: Marizol Hankins RN Service: ? Author Type: Registered Nurse Type: Nursing Progress Note Filed: 12/27/2021 4:39 PM Note Text: Nursing Progress Note Patient Name: Mary Leal Patient Location: [id number] __ Daily Note: Pt AANDO x 3. [...] This note was completed by: Marizol Hankins [facility] NUTRITIONon 12-27-2021 NUTRITION HNO ID: [id number] Author: Merced Morales DTR Service: Nutrition Therapy Author Type: Lyft Driver Type: Nutrition Filed: 12/27/2021 12:16 PM Note Text: NUTRITION THERAPY CHICKEN TENDER NOTE SERVICE DATE: 12/27/2021 SERVICE TIME: 10:00 [...] DATE: December 27, 2021 TIME: 12:15 PM [facility] PT EDon 12-27-2021 PT ED HNO ID: [id number] Author: Merced Morales DTR Service: Nutrition Therapy Author Type: Lyft Driver Type: Patient Education Filed: 12/27/2021 12:16 PM [...] $ Routine Care : 31-45 minutes SIGNATURE: Mercde Morales DTR PATIENT NAME: Mary Leal DATE: December 27, 2021 TIME: 12:16 PM PAGER: Normal [facility] Basic Metabolic Panlon 12-26 Anion gap [Moles/Vol] 9 mmol/L Normal 9-18 [facility] Comment on above: Performed By: #### B MP #### [facility] [address] [place] [address] Calcium [Mass/Vol] 8.5 mg/dL Normal 8.5-10.5 [facility] Comment on above: Performed By: #### B MP #### [place] [address] Chloride [Moles/Vol] 102 mmol/L Normal 98-110 [facility] Comment on above: Performed By: #### B MP #### [place] [address] CO2 [Moles/Vol] 28 mmol/L Normal 23-32 [facility] Comment on above: Performed By: #### B MP #### [place] [phone] Creatinine [Mass/Vol] 0.62 mg/dL Low 0.70-1.40 [facility] Comment on above: Performed By: #### B MP #### [place] [address] eGFR- Amer. >60 Normal >59 [facility] Comment on above: Performed By: #### B MP #### [place] [phone] eGFR-All Other Races >60 Normal >59 [facility] Comment on above: Result Comment: eGFR [...] [email or web address]. Performed By: #### B MP #### [place] [phone] Glucose [Mass/Vol] 71 mg/dL Normal 65-100 [facility] Comment on above: Performed By: #### B MP #### [place] [phone] Potassium [Moles/Vol] 4.0 mmol/L Normal 3.5-5.0 [facility] Comment on above: Performed By: #### B MP #### [phone] Sodium [Moles/Vol] 139 mmol/L Normal 132-148 [facility] Comment on above: Performed By: #### B MP #### [phone] Urea nitrogen [Mass/Vol] 10 mg/dL Normal 8-25 [facility] Comment on above: Performed By: #### B MP #### [place] [phone] NURSING PROGon 12-26-2021 NURSING PROG HNO ID: [id number] Author: Dipti Crowley RN Service: Nursing Author Type: Registered Nurse Type: Nursing Progress Note Filed: 12/26/2021 5:25 PM Note Text: Nursing Progress Note Patient Name: Mary Leal Patient Location: [place] [address] __ Daily Note: Call discontinued as directed in orders. 700cc output from call. 250cc NS instilled and then call catheter removed. Patient assisted to BSC and voided 200cc pink tinged urine. Patient assisted back to bed, not wanting to go to chair. Call light in reach. This note was completed by: Dipti Crowley [facility] NURSING PROG HNO ID: [id number] Author: Dipti Crowley RN Service: Nursing Author Type: Registered Nurse Type: Nursing Progress Note Filed: 12/26/2021 3:51 PM Note Text: Nursing Progress Note Patient Name: Mary Leal Patient Location: [address]33/[id number] __ Daily Note: Patient AANDOx3. VSS. 2L NC POx. IVF infusing as ordered. Dilaudid ELECTRONIC WARFARE SPECIALIST, OXY IR on for pain. Patient drowsy yet easily arousable. Lap sites and transverse incision SINGEING TORCH OPERATOR with glue. Ileostomy draining liquid brown. Call draining clear yellow. PAS on. No edema. Fa,saman at bed side. Call light in reach. This note was completed by: Dipti Crowley Normal [facility] Basic Metabolic Panlon 12-25 Anion gap [Moles/Vol] 9 mmol/L Normal 9-18 [facility] Comment on above: Performed By: #### B MP #### [place] [phone] Calcium [Mass/Vol] 8.5 mg/dL Normal 8.5-10.5 [facility] Comment on above: Performed By: #### B MP #### [place] [phone] Chloride [Moles/Vol] 104 mmol/L Normal 98-110 [facility] Comment on above: Performed By: #### B MP #### [place] [phone] CO2 [Moles/Vol] 28 mmol/L Normal 23-32 [facility] Comment on above: Performed By: #### B MP #### [place] [phone] Creatinine [Mass/Vol] 0.72 mg/dL Normal 0.70-1.40 [facility] Comment on above: Performed By: #### B MP #### [place] [address] eGFR- Amer. >60 Normal >59 [facility] Comment on above: Performed By: #### B MP #### [place] [address] eGFR-All Other Races >60 Normal >59 [facility] Comment on above: Result Comment: eGFR [...] [email or web address]. Performed By: #### B MP #### [place] [address] Glucose [Mass/Vol] 91 mg/dL Normal 65-100 [facility] Comment on above: Performed By: #### B MP #### [place] [address] Potassium [Moles/Vol] 4.0 mmol/L Normal 3.5-5.0 [facility] Comment on above: Performed By: #### B MP #### [place] [phone] Sodium [Moles/Vol] 141 mmol/L Normal 132-148 [facility] Comment on above: Performed By: #### B MP #### [place] [phone] Urea nitrogen [Mass/Vol] 12 mg/dL Normal 8-25 [facility] Comment on above: Performed By: #### B #### [facility] [address] [place] [address] CASE MGT INIT Mikey 2021 CASE MGT INIT FIDEL HNO ID: [id number] Author: TITO Whitt Service: ? Author Type: Front Clerk Type: Care Mgt Initial Assessment Filed: 12/25/2021 11:43 AM Note Text: CARE MANAGEMENT: ASSESSMENT AND DISCHARGE PLAN SERVICE DATE: December 25, 2021 SERVICE TIME: 11:39 AM PRIMARY CARE PHYSICIAN: Eliceo Gómez DO ADMISSION STATUS: Inpatient Needs Prior to Discharge: Facility or Agency Choices;Home Care Order MEDICAL: PARAMOUNT ADVANTAGE MEDICAID Patient/Try On Baster Stated Goals: To have reduction in symptoms Health Insurance: [place] [facility] Issues Impacting Discharge Plan: None Last Discharge Date: 10/14/20 Is this Within the Past 30 days? Last discharge within 30 days: No Advance Directive: Current Advance Directive: Health Care Power of Site Promotion Agent In Chart: No Health LiteracyHow often do [...] Completely I feel financially burdened by my xhu-ys-iwoojv expenses for my prescription medication:: 0 - Disagree Completely Risk Score: 0 Patient is categorized as: Low risk < 2 Are you interested in bedside delivery of your medications? Yes Is Patient Psychosocially Complex?: No ASSESSMENT AND PLAN: Medical Needs: Medical Needs: None Psychosocial Needs: Psychosocial Needs: None FREEDOM OF CHOICE EXPLAINED: [place] of Choice Given: Yes Level of Care Discussed: Home Care Financial Disclosure Provided: Yes Financial Disclosure Comments: careport Provider List: Home Care Provider list within the patient's requested geographic area shared with the patient/family: Yes within: 15 miles of [facility] code: [address] Quality and resource use metrics shared with the patient that are relevant to the patient's goals of care and treatment preferences:: Yes Metrics: Skin Integrity;Functional Status;Potentially Preventable 30-day Post Discharge Readmission Rates POTENTIAL TRANSITION PLANS Home Care Pt admitted for new ostomy. Pt lives with family at home. Independent prior to admission. Daughter is emergency contact at bedside with pt during assessment. Charo Topher [phone]. Home care referrals sent. Daughter to transport at time of discharge. SIGNATURE: TITO Whitt PATIENT NAME: Mary Leal DATE: December 25, 2021 TIME: 11:39 AM PAGER/CONTACT #: [phone] Normal [facility] CBC and Differentialon 12-25 Abs Baso 0.03 k/uL Normal <0.11 [facility] Comment on above: Performed By: #### 5 7021-8 #### [facility] CLIA [id number] [address] [place] Abs Duval 0.45 k/uL Normal <0.87 [facility] Comment on above: Performed By: #### 5 7021-8 #### [facility] CLIA [id number] [place] [address] [place] Abs Neut 3.85 k/uL Normal 1.45-7.50 [facility] Comment on above: Performed By: #### 5 7021-8 #### [facility] CLIA [id number] [place] [address] [place] Absolute nRBC <0.01 Normal <0.01 [facility] Comment on above: Performed By: #### 5 7021-8 #### [facility] CLIA [id number] [address] [place] [address] [place] Basophils/100 WBC (Bld) 0.5 % Normal [facility] Comment on above: Performed By: #### 5 7021-8 #### [facility] CLIA [id number] [address] [place] [address] [place] DTYPE Auto Diff Normal [facility] Comment on above: Performed By: #### 5 7021-8 #### [facility] CLIA [id number] [address] [place] [address] [place] Eosinophils (Bld) [#/Vol] 0.14 10*3/uL Normal <0.46 [facility] Comment on above: Performed By: #### 5 7021-8 #### [facility] CLIA [id number] [address] [place] [address] [place] Eosinophils/100 WBC (Bld) 2.3 % Normal [facility] Comment on above: Performed By: #### 5 7021-8 #### [facility] CLIA [id number] [address] [place] [address] [place] Erythrocyte distribution width (RBC) [Ratio] 11.6 % Normal 11.5-15.0 [facility] Comment on above: Performed By: #### 5 7021-8 #### [facility] CLIA [id number] [address] [place] [address] [place] Hematocrit (Bld) [Volume fraction] 35.2 % Low 36.0-46.0 [facility] Comment on above: Performed By: #### 5 7021-8 #### [facility] CLIA [id number] [address] [place] [address] [place] Hemoglobin (Bld) [Mass/Vol] 11.6 g/dL Normal 11.5-15.5 [facility] Comment on above: Performed By: #### 5 7021-8 #### [facility] CLIA [id number] [address] [place] [address] [place] Lymphocytes (Bld) [#/Vol] 1.47 10*3/uL Normal 1.00-4.00 [facility] Comment on above: Performed By: #### 5 7021-8 #### [facility] CLIA [id number] [address] [place] [address] Lymphocytes/100 WBC (Bld) 24.7 % Normal [facility] Comment on above: Performed By: #### 5 7021-8 #### [facility] CLIA [id number] [address] [place] [address] [place] MCH 29.5 pG Normal 26.0-34.0 [facility] Comment on above: Performed By: #### 5 7021-8 #### [facility] CLIA [id number] [address] [place] [address] STATES OF [facility] MCHC (RBC) [Mass/Vol] 33.0 g/dL Normal 30.5-36.0 [facility] Comment on above: Performed By: #### 5 7021-8 #### [facility] CLIA [id number] [address] [place] [address] STATES [place] MCV (RBC) [Entitic vol] 89.6 fL Normal 80.0-100.0 [facility] Comment on above: Performed By: #### 5 7021-8 #### [facility] CLIA [id number] [address] [place] [address] STATES [place] Monocytes/100 WBC (Bld) 7.6 % Normal [facility] Comment on above: Performed By: #### 5 7021-8 #### [facility] CLIA [id number] [address] [place] [address] [place] Neutrophils/100 WBC (Bld) 64.9 % Normal [facility] Comment on above: Performed By: #### 5 7021-8 #### [facility] CLIA [id number] [address] [place] [address] [place] NRBCs 0.0 /100 WBC Normal 0 [facility] Comment on above: Performed By: #### 5 7021-8 #### [facility] CLIA [id number] [address] [place] [address] [place] Platelet mean volume (Bld) [Entitic vol] 9.0 fL Normal 9.0-12.7 [facility] Comment on above: Performed By: #### 5 7021-8 #### [facility] CLIA [id number] [address] [place] [address] [place] Platelets (Bld) [#/Vol] 271 10*3/uL Normal 150-400 [facility] Comment on above: Performed By: #### 5 7021-8 #### [facility] CLIA [id number] [address] [place] [address] [place] RBC (Bld) [#/Vol] 3.93 10*6/uL Normal 3.90-5.20 [facility] Comment on above: Performed By: #### 5 7021-8 #### [facility] CLIA [id number] [address] [place] [address] [place] WBC (Bld) [#/Vol] 5.96 10*3/uL Normal 3.70-11.00 [facility] Comment on above: Performed By: #### 5 7021-8 #### [facility] CLIA [id number] [address] [place] [address] OF [facility] CONSULTon 12-25-2021 CONSULT HNO ID: [id number] Author: Tri Kowalski APRN.PAINT ROLLER 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 Service: Wound/Ostomy Author Type: Nurse Practitioner Type: Consults Filed: 12/25/2021 11:37 AM Note Text: OSTOMY SERVICE CONSULT FINISH FILER SERVICE DATE: 12/25/2021 SERVICE TIME: 1015 Consultation requested by Jenifer Ayala MD for loop ileostomy. Any final recommendations will be communicated back to the requesting provider by way of shared medical record. Surgery: Laparoscopic Suture Rectopexy, Diverting Loop Ileostomy? Date of Surgery: 12/24/2021 Surgeon: Mary Obrien MD Subjective Mary Zoya Elvis is a 51 year old female is [...] mL 20 mEq INTRAVENOUS PRN - HYDROmorphone ELECTRONIC WARFARE SPECIALIST 0.5 mg/mL in NaCl 0.9% 100 mL [...] discharge with h (more content not included)... [facility] NURSING PROGon 12-25-2021 NURSING PROG HNO ID: [id number] Author: Marilyn Henning RN Service: ? Author Type: Registered Nurse Type: Nursing Progress Note Filed: 12/25/2021 7:01 PM Note Text: Nursing Progress Note Patient Name: Mary Leal Patient Location: [place] [address] __ Daily Note: 0930 Pt AANDOx3. Lap sites intact. ABD tender. ELECTRONIC WARFARE SPECIALIST pump running. Stoma beefy red, dark brown liquid output. Pt stated that the eye pressure felt overnite has resolved. Call remains in place until OBGYN sees pt 12/26. Pt requesting PO pain medication. 1100 Pt up to chair. [address] Ontiveros bedside. 5mg oxy ordered q4 PRN. This note was completed by: Marilyn Henning [facility] NURSING PROG HNO ID: [id number] Author: Beto Ford RN Service: ? Author Type: Registered Nurse Type: Nursing Progress Note Filed: 12/25/2021 6:12 AM Note Text: Nursing Progress Note Patient Name: Mary Leal Patient Location: [place] [address] __ Daily Note: Pt has been complaining [...] This note was completed by: Beto Ford [facility] ANES POSTPROC EVALon 022 [facility] POSTPROC EVAL HNO ID: [id number] Author: Charisse Aggarwal MD Service: Anesthesiology Author Type: Anesthesiologist Type: Anesthesia Postprocedure Evaluation Filed: 12/24/2021 4:17 PM Note Text: POST ANESTHESIA EVALUATION NOTE : 1970 Procedure Summary Date: 12/24/21 Room / Location: [place] [address] / OR Anesthesia Start: 810 Anesthesia Stop: [...] December 24, 2021 TIME: 4:17 PM CSN: [id number] [facility] ANES PRE-OPon 12-24-2021 ANES PRE-OP HNO ID: [id number] Author: Chayito Ojeda MD Service: Anesthesiology Author [...] none. Vitals Value Taken Time BP 122/76 12/24/2128 Pulse 86 12/24/2128 Resp 16 12/24/21627 Temp 36.4 ?C (97.5 ?F) 12/24/21 06 SpO2 95 % 12/24/2128 Facility-Administered Medications as of 12/24/2021 Medication Dose [...] December 24, 2021 TIME: 7:27 AM CSN: [id number] [facility] BRIEF OP NOTon 12-24-2021 BRIEF OP NOT HNO ID: [id number] Author: Jenifer Ayala MD Service: Colorectal Author Type: Fellow Type: Brief Op Note Filed: 12/24/2021 12:16 PM Note Text: BRIEF OPERATIVE NOTE - COLORECTAL SURGERY Log ID: [id number] Surgery/Procedure Date: 12/24/2021 Incision/Procedure Start Time: 8:50 AM Incision Close/Procedure End Time: Surgeon(s) and Experimental Electronics Developer(s): Surgeon(s) and Role: Panel 1: * Mary [...] December 24, 2021 TIME: 12:10 PM Normal [facility] NURSING PROGon 12-24-2021 NURSING PROG HNO ID: [id number] Author: Marilyn Henning RN Service: ? Author Type: Registered Nurse Type: Nursing Progress Note Filed: 12/24/2021 6:36 PM Note Text: Nursing Progress Note Patient Name: Mary Leal Patient Location: [address] __ Daily Note: 1816 Pt arrived on floor with 100.2F temperature. Scheduled tylenol administered. Temperature 98.6 at 1816. Surgical incisions SINGEING TORCH OPERATOR with glue, intact. Ostomy beefy red, producing sweat. Call remains in place. Pt Educated on ELECTRONIC WARFARE SPECIALIST pump usage. Daughter bedside. Bed low and locked. This note was completed by: Marilyn [facility] NURSING PROG HNO ID: [id number] Author: Marilyn Henning RN Service: ? Author Type: Registered Nurse Type: Nursing Progress Note Filed: 12/24/2021 4:19 PM Note Text: Nursing Progress Note Patient Name: Mary Leal Patient Location: [address] __ Transfer Note: Patient transferred into room/unit PK3- in stable condition. Actions taken: No futher actions taken at this time. Will continue to monitor and check with patient. This note was completed by: [facility] NURSING PROG HNO ID: [id number] Author: Dianelys Lopez RN Service: Nursing Author [...] (RECOMMENDATION): None Electronically Signed By: Dianelys Lopez [facility] OPERATIVE NOon 12-24-2021 OPERATIVE NO HNO ID: [id number] Author: Mary Obrien MD Service: Colorectal Author Type: Physician Type: Operative Report Filed: 12/24/2021 12:34 PM Note Text: COLON AND RECTAL SURGERY OPERATIVE REPORT PATIENT NAME: Mary Leal ADMISSION DATE: 12/24/2021 LOG ID: [id number] SURGERY/PROCEDURE DATE: 12/24/2021 INCISION/PROCEDURE START TIME: 8:50 AM INCISION CLOSE/PROCEDURE END TIME: AGE: [age] year old SEX: female SURGEON(S)/PROCEDURALI ST(S) AND RECORDS COORDINATOR(S): Surgeon(s) and Role: Panel 1: * Mary [...] port site. This was ligated with a jukixr-ti-loxul Vicryl suture and was confirmed to be [...] Mary Obrien, (more content not included)... Normal [facility] OPERATIVE NO HNO ID: [id number] Author: Pam Wang MD Service: Urogynecology Author Type: Physician Type: Operative Report Filed: 12/28/2021 10:03 AM Note Text: OPERATIVE/PROCEDURE REPORT LOG ID: [id number] SURGERY/PROCEDURE DATE: 12/24/2021 INCISION/PROCEDURE START TIME: 8:50 AM INCISION CLOSE/PROCEDURE END TIME: 1:50 PM SURGEON(S)/PROCEDURALI ST(S) AND RECORDS COORDINATOR(S): Surgeon(s) and Role: Panel 1: * Mary [...] of the (more content not included)... Normal [facility] Type and SCR (30D)on 022 ABO/RH(D) Positive [facility] Comment on above: Performed By: #### T SCR30 ####[place] [id number] [place] [phone] Confirm Blood Typeon 021 ABO/RH(D) Positive [facility] Comment on above: Performed By: #### C ONABO ####[facility] [place], [place] [phone] Type and SCR (30D)on 021 ABO/RH(D) Positive [facility] Comment on above: Performed By: #### T SCR30 ####[address] [phone] Nonvisit Note - PTon 021 Nonvisit Note - PT Chart reviewed with eval prepped for scheduled eval. KK [facility] Consenton 01-08-2021 Consent [id number]#1. 00CD:127 [facility] Coding Summary.on 01-06-2021 Coding Summary. CODING DATE: 01/06/2021 FINAL [facility] STATUS: Home (Routine DC) PAYOR: Medicaid EA [...] Date Saved: 01/06/2021 09:01 am [facility] Consent for Procedure/Surger yon 01-04-2021 Consent for Procedure/Surgery [id number]#1. 00CD:127 [facility] Consent for Procedure/Surgery [id number]#1. 00CD:127 [facility] Consent for Treatmenton Consent for Treatment [id number]#1.0 0CD:127 [facility] Discharge Instructionson Discharge Instructions [id number]#1. 00CD:127 [facility] Inpatient Patient Summaryon 01-04-2021 Inpatient Patient Summary [address] [address] Clinical Summary Person Information Name: MARY LEAL Age: 50 Years : 1970 Sex: Female PCP: Isatu GÓMEZ DO Marital Status: Race: White Ethnicity: Non- or Language: [place] Citizen Visit Id: Visit Reason: MIXED INCONTINENCE Speciality: Acuity: Enc Type: Outpatient Med Service: Surgery Arrival: 01/04/2021 12:31:00 Discharge: Dispo Type: Address: [place] [id number] Provider Notes: Diagnosis: Problems Active Decreased bladder [...] This Visit Final Med List: acetaminophen-hydrocod one (Kathleen 5/325 Tab) By Mouth every 6 hours. [...] day. Care Team Members: Attending Physician: Clifford OCNONOR MD Consulting Physician: Referring Physician: Clifford OCONNOR MD Follow up: With: Address: When: Clifford OCONNOR [address], [address], [facility] [address] [place] [phone] Business (1) Within 2 weeks Comments: Call for followup appointment. Have a great day! Patient Education Information: EU - Cystoscopy with Botox Injection Discharge Instructions (Custom) Normal [facility] IntraOperative Documentson 0 01-04-2021 IntraOperative Documents [id number]#1. 00CD:127 Normal [facility] IntraOperative Documents [id number]#1. 00CD:127 [facility] Main OR Intraoperative Recor don 01-04-2021 Main OR Intraoperative Record IntraOp Document Type FTURO Summary Primary Physician: Clifford OCONNOR MD Finalized Date/Time: 01/04/21 13:27:05 Pt. Name: MARY LEAL.O.B./Sex: 1970 Female Med Rec #: [id number] Physician: Clifford OCONNOR MD Financial #: [id number] Pt. Type: O Room/Bed: / Admit/Disch: 01/04/21 12:31:00 - Institution: Case Times FTURO Entry 1 Patient Times In Room 01/04/21 13:07:00 Out Room 01/04/21 13:27:00 Procedure Times Start 01/04/21 13:19:00 Stop 01/04/21 13:23:00 Anesthesia Times Last Modified By: Niecy Tran RN 01/04/21 13:27:01 Case Attendance FTURO Entry 1 Entry 2 Entry 3 Case Attendee Clifford OCONNOR MD CHIEF BANK EXAMINER, Akin Mejias CHIEF BANK EXAMINER, Debi Chand Role Performed Surgeon - Primary [...] Case Attendee Niecy Tran RN Role Performed Thermoplastic Technician - Primary Time In 01/04/21 13:07:00 Time Out 01/04/21 13:27:00 Procedure CYSTOSCOPY LOCAL BOTOX INJECTION(.) Comments Last Modified By: Niecy Tran RN 01/04/21 13:27:02 Surgical Procedures FTURO Entry 1 Procedure Description Procedure CYSTOSCOPY LOCAL BOTOX Modifiers . INJECTION Surgeon Description CYSTOSCOPY BOTOX 50 UNITS LOT NUMBER [id number] EXP DATE 08/2023 Primary Procedure Yes Primary [...] By: Niecy Tran RN 01/04/21 13:27 Normal [facility] Main OR Preoperative Recordo n 01-04-2021 Main OR Preoperative Record Holding Area Document Type FTURO Summary Primary Physician: Clifford OCONNOR MD Finalized Date/Time: 01/04/21 13:05:55 Pt. Name: MARY LEAL Zoya /Sex: 1970 Female Med Rec #: [id number] Physician: Clifford OCONNOR MD Financial #: [id number] Pt. Type: O Room/Bed: / Admit/Disch: 01/04/21 [...] Tran RN Document Signatures Signed By: Joselyn ELECTRICAL ENGINEERING DESIGNERAnnmraie Brewer 01/04/21 12:46 Niecy Tran RN 01/04/21 13:05 Normal [facility] Operative Reporton Operative Report Patient: MARY [...] arranged, F/U in two weeks. . Normal [facility] Comment on above: Result Comment: Elec tronically Signed By: Clifford OCONNOR MD\.br\Date and Time Signed: 01/04/21 13:30 EST Outpatient Surgery Discharge Instructionon 01-04-2021 Outpatient Surgery Discharge Instruction [place] [id number] Patient Discharge Instructions PERSON INFORMATION Name: MARY LEAL Date of : 1970 Current Date: 01/04/2021 13:25:41 PHYSICIANS Admitting Physician: Clfiford OCONNOR MD Comment: Discharge Diagnosis: MARY LEAL has been given the following list of follow-up instructions, prescriptions, and patient education materials: IF UNABLE TO CONTACT YOUR PHYSICIAN AND YOU FEEL IT IS AN EMERGENCY, GO TO THE NEAREST EMERGENCY ROOM OR CALL 911 Follow up: With: Address: When: Clifford OCONNOR [address] [place] [address], [address], [address] [address] [facility] (1) Within 2 weeks Comments: Call for [...] Date You may receive a survey from [employer] asking you to rate your care experience. Your feedback is important and will help us understand what we do well and how we can improve the quality of care we provide to you, your loved ones and our community. It?s an honor to serve you. Thank you for choosing [facility] Normal [facility] XR Shoulder - right 3 Viewso n 12-25-2020 IMPRESSION: NO SIGNIFICANT CHANGE Chemical Laboratory Tester: [facility] Transcribe Date/Time: Dec 25 2020 12:18P Dictated by : AWA LOPEZ MD This examination was interpreted and the report reviewed and electronically signed by: AWA LOPEZ MD on Dec 25 2020 12:21PM [facility] DIVISION OF RADIOLOGY * * *Final Report* * * DATE OF EXAM: Dec 25 2020 11:36AM LZX 5253 - XR SHLDR >/=3V AP/DUNCAN AP/OTHR RT / PROCEDURE REASON: Post-operative state * * * * Physician Interpretation * * * * HISTORY: Post-operative state . rt shoulder post op follow up TECHNIQUE: XR SHLDR >/=3V AP/DUNCAN AP/OTHR RT Laterality: RIGHT Number of different views (projections): 3 COMPARISON: 09/29/2020 RESULT: Joint spaces and alignment normal. No evidence of a fracture. Bony irregularity of the greater tuberosity probably due to chronic reactive changes. Minimal degenerative changes acromioclavicular joint. Normal soft tissues. No other significant abnormality. - DIVISION OF RADIOLOGY Provider, [facility] Veronica [facility] - 12/25/2020 * * *Final Report* * * DATE OF EXAM: Dec 25 2020 11:36AM LZX 5253 - XR SHLDR >/=3V AP/DUNCAN AP/OTHR RT / PROCEDURE REASON: Post-operative state * * * * Physician Interpretation * * * * HISTORY: Post-operative state . rt shoulder post op follow up TECHNIQUE: XR SHLDR >/=3V AP/DUNCAN AP/OTHR RT Laterality: RIGHT Number of different views (projections): 3 COMPARISON: 09/29/2020 RESULT: Joint spaces and alignment normal. No evidence of a fracture. Bony irregularity of the greater tuberosity probably due to chronic reactive changes. Minimal degenerative changes acromioclavicular joint. Normal soft tissues. No other significant abnormality. - IMPRESSION IMPRESSION: NO SIGNIFICANT CHANGE Chemical Laboratory Tester: [employer] Transcribe Date/Time: Dec 25 2020 12:18P Dictated by : AWA LOPEZ MD This examination was interpreted and the report reviewed and electronically signed by: AWA LOPEZ MD on Dec 25 2020 12:21PM EST [facility] Radiology Study observation (narrative) [facility] XR Shoulder - right 3 ViewsO rdered By: Ccf Provider on 12-25-2020 [facility] PT - Assessmentson 1 PT - Assessments [id number]#1. 00CD:127 Normal [facility] Ambulatory Clinical Summaryo n 11-11-2020 Ambulatory Clinical Summary {[id number]}CD:[id number] Normal [facility] Patient Educationon 11-11-19 21 Patient [...] your urinary (more content not included)... Normal [facility] Visit- Telehealth HPI Staff [...] only communication with the patient located at [facility] [phone] , with no one else. If it [...] Dawna Marmolejo MD [address] [place] [phone] Additional Instructions: Patient Education Urodynamic Testing Overactive [...] urine stream His (more content not included)... [facility] Comment on above: Result Comment: Elec tronically Signed By: Dawna Marmolejo MD\.br\Date and Time Signed: 11/03/20 11:59 EST\.br\Electronically Co-Signed By: Christy Gill MA\.br\Date and Time Co-Signed: 10/21/20 12:01 EST Coding Summary.on 10-28-2020 Coding Summary. CODING DATE: 10/28/2020 FINAL [facility] STATUS: Home (Routine DC) PAYOR: Medicaid EAPG [...] Date Saved: 10/28/2020 11:17 am [facility] Ambulatory Clinical Summaryo n 10-27-2020 Ambulatory Clinical Summary {[id number] 6-e5}CD:[id number] [facility] Consent for Procedure/Surger yon 10-27-2020 Consent for Procedure/Surgery [id number] .00CD:127 [facility] Consent for Treatmenton 10-07 Consent for Treatment [id number]#1.0 0CD:127 [facility] IntraOperative Documentson 1 12-28-2019 IntraOperative Documents [id number]#1 .00CD:127 Normal [facility] Patient Educationon 10-21-20 Patient Education [...] or depar (more content not included)... Normal [facility] XR Shoulder - right 3 Viewso n 09-29-2020 IMPRESSION: No acute osseous findings. Chemical Laboratory Tester: [facility] Transcribe Date/Time: Sep 29 2020 8:37A Dictated by : FLORENCE TORRES MD This examination was interpreted and the report reviewed and electronically signed by: FLORENCE TORRES MD on Sep 29 2020 8:38AM [facility] DIVISION OF RADIOLOGY * * *Final Report* * * DATE OF EXAM: Sep 29 2020 8:23AM LZX 5253 - XR SHLDR >/=3V AP/DUNCAN AP/OTHR RT / PROCEDURE REASON: Pain * * * * Physician Interpretation * * * * EXAMINATION: XR SHLDR >/=3V AP/DUNCAN AP/OTHR RT PATIENT/TECHNOLOGIST PROVIDED HISTORY: RIGHT SHOULDER PAIN, CHRONIC, NO KNOWN INJURY CLINICAL INFORMATION ( PROVIDED BY ORDERING CLINICIAN) : Pain TECHNIQUE: XR SHLDR >/=3V AP/DUNCAN AP/OTHR RT Laterality: RIGHT Number of different views (projections): 5 M: XB_1 COMPARISON: None RESULT: No acute fracture or dislocation. Glenohumeral joint space and acromiohumeral interval are maintained. Reactive subcortical cysts in the greater tuberosity. Mild degenerative change of the acromioclavicular joint and small subacromial bone spur. No other significant abnormality. DIVISION OF RADIOLOGY Provider, [facility] - 09/29/2020 * * *Final Report* * * DATE OF EXAM: Sep 29 2020 8:23AM LZX 5253 - XR SHLDR >/=3V AP/DUNCAN AP/OTHR RT / PROCEDURE REASON: Pain * * * * Physician Interpretation * * * * EXAMINATION: XR SHLDR >/=3V AP/DUNCAN AP/OTHR RT PATIENT/TECHNOLOGIST PROVIDED HISTORY: RIGHT SHOULDER PAIN, CHRONIC, NO KNOWN INJURY CLINICAL INFORMATION ( PROVIDED BY ORDERING CLINICIAN) : Pain TECHNIQUE: XR SHLDR >/=3V AP/DUNCAN AP/OTHR RT Laterality: RIGHT Number of different views (projections): 5 M: XB_1 COMPARISON: None RESULT: No acute fracture or dislocation. Glenohumeral joint space and acromiohumeral interval are maintained. Reactive subcortical cysts in the greater tuberosity. Mild degenerative change of the acromioclavicular joint and small subacromial bone spur. No other significant abnormality. IMPRESSION IMPRESSION: No acute osseous findings. Chemical Laboratory Tester: [employer] Transcribe Date/Time: Sep 29 2020 8:37A Dictated by : FLORENCE TORRES MD This examination was interpreted and the report reviewed and electronically signed by: FLORENCE TORRES MD on Sep 29 2020 8:38AM EST [facility] Radiology Study observation (narrative) [facility] XR Shoulder - right 3 ViewsO rdered By: Ccf Provider on 09-29-2020 [facility] PT - Assessmentson 0 PT - Assessments [id number]#1. 00CD:127 Normal [facility] Nonvisit Note - PTon 020 Nonvisit Note - PT Per voicemail: she needs to cancel all of her PT due to personal reasons. KK Normal [facility] Provider Letteron 09-09-2020 Provider Letter September 09, 2020 MARY LEAL [address] [place] [address] MARY LEAL 1970 Dear Mary Leal, You [...] appreciate your understanding. Sincerely, [facility] [address] [facility], [place] [address] [facility] PT - Assessmentson 0 PT - Assessments [id number]#1. 00CD:127 [facility] PT - Assessments [id number]#1. 00CD:127 [facility] PT - Assessmentson 0 PT - Assessments [id number]#1. 00CD:127 [facility] PT - Consentson 08-31-2020 PT - Consents [id number]#1. 00CD:127 [facility] Pre-Certification Formon Pre-Certification Form [id number]#1.0 0CD:127 [facility] Pre-Certification Form [id number]#1.0 0CD:127 [facility] Consent for Procedure/Surger yon 08-26-2020 Consent for Procedure/Surgery [id number]#1.0 0CD:127 [facility] Ambulatory Clinical Summaryo n 08-25-2020 Ambulatory Clinical Summary {[id number] d-}CD:[id number] [facility] Patient Educationon 08-25-20 Patient Education [...] an extended amount of time. Only take tymc-vdt-pqqkkog or prescription medicines for pain, discomfort, or [...] Document Reviewed: 09/07/2009 ExitCare? Patient Information ?2013 [employer]end. [facility] Urology Office/Clinic Noteon 08-25-2020 Urology [...] Mother. Hypertension: Mother and Father. [facility] Comment on above: Result Comment: Elec tronically Signed By: Dawna Marmolejo MD\.br\Date and Time Signed: 08/25/20 10:06 EDT\.br\Electronically Co-Signed By: Mary Hager.br\Date and Time Co-Signed: 08/25/20 09:51 EDT Coding Summary.on 08-21-2020 Coding Summary. CODING DATE: 08/21/2020 FINAL [facility] STATUS: PAYOR: Medicaid EA DESCRIPTION 0271 PHYSICAL [...] Date Saved: 08/21/2020 10:42 am [facility] Consenton 08-21-2020 Consent [id number]#1.0 0CD:127 [facility] Ambulatory Clinical Summaryo n 08-19-2020 Ambulatory Clinical Summary {[id number] [facility] Ambulatory Clinical Summary {[id number]}CD:[id number] [facility] Nonvisit Note - PTon 020 Nonvisit Note - PT Chart reviewed for scheduled eval. KK Normal [facility] Patient Educationon 08-19-20 20 Patient [...] your urinary (more content not included)... Normal [facility] U[facility] Phone Visit- Telehealth Chief Complaint [...] communication with the patient located at [address] [place] [phone], with no one else. If it is [...] questions/concerns were discussed. Pt. acknowledges understanding. Ordered: [facility] External Ambulatory Referral Urology Procedure Order 2. Dysuria (R30.0: Dysuria) Moderate. Ordered: [facility] External Ambulatory Referral Urology Procedure Order 3. Feeling of incomplete bladder emptying (R39.14: Feeling of incomplete bladder emptying) Pt. does not feel that she is emptying. Ordered: [facility] External Ambulatory Referral Urology Procedure Order 4. Weak urine stream (R39.12: Poor urinary stream) Weak stream w/ moderate hesitancy. Ordered: [facility] External Ambulatory Referral Urology Procedure Order 5. [...] Will order Local anesthesia. ABX sent to [facility] in [place]. Ordered: [facility] External Ambulatory Referral Urology Procedure Order 6. [...] Patient who (more content not included)... Normal [facility] Comment on above: Result Comment: Elec tronically Signed By: Francie BENSON, Dawna Feldman\.br\Date and Time Signed: 08/19/20 08:53 EDT\.br\Electronically Co-Signed By: Christy Gill MA\.br\Date and Time Co-Signed: 08/19/20 08:44 EDT Coding Summary.on 08-12-2020 Coding Summary. CODING DATE: 08/12/2020 [facility] DSC STATUS: Home (Routine DC) PAYOR: Medicaid [...] Date Saved: 08/12/2020 09:42 am [facility] Formson 08-11-2020 Forms [id number] [facility] C Urineon 08-09-2020 Bacteria identified [...] Locations R1: This test was performed at: [employer] [facility], [address] [place] [address], [id number] , , [facility] Comment on above: Performed By: #### 2 [id number] ####[facility] [address] [place] [address] Ambulatory Clinical Summaryo n 08-07-2020 Ambulatory Clinical Summary {[id number] Primitivo Barkley [facility] Patient Educationon 08-07-20 Patient Education Kegel Exercises [...] Document Reviewed: 07/18/2013 ExitCare? Patient Information ?2013 [employer] [facility]. Family Medicine Overactive Bladder, Adult [...] bladder, your (more content not included)... Normal [facility] Urology Office/Clinic Noteon 08-07-2020 Urology [...] setting of nocturia q2hrs and daytime frequency [id number] with painful post void bladder sensation of [...] [address] (more content not included)... Normal [facility] Comment on above: Result Comment: Elec tronically Signed By: Dawna Marmolejo MD\.br\Date and Time Signed: 08/07/20 15:54 EDT\.br\Electronically Co-Signed By: Radha Lopez MA\.br\Date and Time Co-Signed: 08/07/20 15:44 EDT Vital Signs Date Time Vital Sign Value Performing Clinician Facility 04-12-2024 13:10-0400 Diastolic blood pressure 75 mm[Hg] Milagros Franco MD, PhD Work Phone: [facility] 04-12-2024 13:10-0400 Heart rate 62 /min Milagros Franco MD, PhD Work Phone: [facility] 04-12-2024 13:10-0400 Respiratory rate 20 /min Milagros Franco MD, PhD Work Phone: [facility] 04-12-2024 13:10-0400 SaO2% (BldA) [Mass fraction] 100 % Milagros Franco MD, PhD Work Phone: [facility] 04-12-2024 13:10-0400 Systolic blood pressure 121 mm[Hg] Milagros Franco MD, PhD Work Phone: [facility] 04-12-2024 11:35-0400 Body height 162.6 cm Milagros Franco MD, PhD Work Phone: [facility] 04-12-2024 11:35-0400 Body mass index (BMI) [Ratio] 25.75 kg/m2 Milagros Franco MD, PhD Work Phone: [facility] 04-12-2024 11:35-0400 Body temperature 97.9 [degF] Milagros Franco MD, PhD Work Phone: [facility] 04-12-2024 11:35-0400 Body weight 68.04 kg Milagros Franco MD, PhD Work Phone: [facility] 02-27-2024 09:48-0400 Body height 162.6 cm Flower Lopez APRN.PAINT ROLLER 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 Work Phone: [facility] 02-27-2024 09:48-0400 Body mass index (BMI) [Ratio] 26.45 kg/m2 Flower Lopez FINISH FILER.PAINT ROLLER 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 Work Phone: [facility] 02-27-2024 09:48-0400 Body weight 69.9 kg Flower Lopez FINISH FILER.PAINT ROLLER 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 Work Phone: [facility] 02-27-2024 09:48-0400 Diastolic blood pressure 93 mm[Hg] Flower Lopez FINISH FILER.PAINT ROLLER 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 Work Phone: [facility] 02-27-2024 09:48-0400 Heart rate 62 /min Flower Lopez APRN.PAINT ROLLER 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 Work Phone: [facility] 02-27-2024 09:48-0400 Systolic blood pressure 146 mm[Hg] Flower Lopez PAINT ROLLER 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 Work Phone: [facility] 01-25-2024 09:05-0400 Body height 162.6 cm [employer] Work Phone: [facility] 01-25-2024 09:05-0400 Body weight 68.04 kg [employer] Work Phone: [facility] 01-25-2024 09:05-0400 Heart rate 84 /min [employer] Work Phone: [facility] 01-25-2024 09:05-0400 Respiratory rate 16 /min [employer] Work Phone: [facility] 01-10-2024 12:40-0500 Body height 162.6 cm Cullen Dawkins MD Work Phone: [facility] 01-10-2024 12:40-0500 Body mass index (BMI) [Ratio] 27.89 kg/m2 Cullen Dawkins MD Work Phone: [facility] 01-10-2024 12:40-0500 Body weight 73.7 kg Cullen Dawkins MD Work Phone: [facility] 12-20-2023 12:21-0500 Body height 162.6 cm [facility] 12-20-2023 12:21-0500 Body mass index (BMI) [Ratio] 28.38 kg/m2 [facility] 12-20-2023 12:21-0500 Body temperature 98.2 [degF] [facility] 12-20-2023 12:21-0500 Body weight 75 kg [facility] 13 [facility] 12-20-2023 12:21-0500 Diastolic blood pressure 90 mm[Hg] [facility] 13 [facility] 12-20-2023 12:21-0500 Heart rate 72 /min [facility] 13 [facility] 12-20-2023 12:21-0500 Respiratory rate 18 /min [facility] 12-20-2023 12:21-0500 SaO2% (BldA) [Mass fraction] 96 % [facility] 12-20-2023 12:21-0500 Systolic blood pressure 138 mm[Hg] [facility] 11-23-2023 08:14-0500 Body height 162.56 cm DO Shannon Gómez Work Phone: [facility] 11-23-2023 08:14-0500 Body weight 70.3 kg DO Shannon Gómez Work Phone: [facility] 08-12-2023 07:08-0400 Diastolic blood pressure 65 mm[Hg] Lex Salmon MD Work Phone: [facility] 08-12-2023 07:08-0400 Heart rate 77 /min Lex Salmon MD Work Phone: [facility] 08-12-2023 07:08-0400 SaO2% (BldA) [Mass fraction] 98 % Lex Salmon MD Work Phone: [facility] 08-12-2023 07:08-0400 Systolic blood pressure 132 mm[Hg] Lex Salmon MD Work Phone: [facility] 08-12-2023 06:48-0400 Respiratory rate 13 /min Lex Salmon MD Work Phone: [facility] 08-12-2023 00:25-0400 Body height 162.6 cm Lex Salmon MD Work Phone: [facility] 08-12-2023 00:25-0400 Body mass index (BMI) [Ratio] 28.01 kg/m2 Lex Salmon MD Work Phone: [facility] 08-12-2023 00:25-0400 Body temperature 97.59 [degF] Lex Salmon MD Work Phone: [facility] 08-12-2023 00:25-0400 Body weight 74.03 kg Lex Salmon MD Work Phone: [facility] 07-31-2023 14:27-0400 Body height 162.6 cm Nelsy Chávez FINISH FILER.PAINT ROLLER 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 Work Phone: [facility] 07-31-2023 14:27-0400 Body weight 69.85 kg Nelsy Chávez FINISH FILER.PAINT ROLLER 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 Work Phone: [facility] 07-31-2023 14:27-0400 Diastolic blood pressure 96 mm[Hg] Nelsy Chávez FINISH FILER.PAINT ROLLER 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 Work Phone: [facility] 07-31-2023 14:27-0400 Heart rate 76 /min Nelsy Chávez FINISH FILER.PAINT ROLLER 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 Work Phone: [facility] 07-31-2023 14:27-0400 Systolic blood pressure 136 mm[Hg] Nelsy Chávez FINISH FILER.PAINT ROLLER 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 Work Phone: [facility] 06-13-2023 10:37-0400 Body height 162.56 cm Eliceo Gómez Work Phone: [facility] [facility] DO Work Phone: 06-13-2023 10:37-0400 Body mass index (BMI) [Ratio] 27.46 kg/m2 Eliceo Gómez Work Phone: [facility] [address] DO Work Phone: 06-13-2023 10:37-0400 Body surface area Derived from formula 1.78 m2 Eliceo Gómez Work Phone: [facility] [facility] DO Work Phone: 06-13-2023 10:37-0400 Body weight 72.58 kg Eliceo Gómez Work Phone: [facility] [facility] DO Work Phone: 06-13-2023 10:37-0400 Diastolic blood pressure 70 mm[Hg] Eliceo Gómez Work Phone: [facility] [facility] DO Work Phone: 06-13-2023 10:37-0400 Heart rate 70 /min Eliceo Gómez Work Phone: [facility] [address] DO Work Phone: 06-13-2023 10:37-0400 Systolic blood pressure 100 mm[Hg] Eliceo Gómez Work Phone: [facility] [facility] DO Work Phone: 06-13-2023 10:37-0400 11 1 Eliceo Gómez Work Phone: [facility] [facility] DO Work Phone: Comment on above: PHQ-9 TS 06-05-2023 13:23-0400 Diastolic blood pressure 68 mm[Hg] DO Shannon Szymanskileigha Work Phone: [facility] 06-05-2023 13:23-0400 Heart rate 72 /min DO Shannon Szymanskijerometomasa Work Phone: [facility] 06-05-2023 13:23-0400 Respiratory rate 18 /min DO Shannon Szymanskijerometomasa Work Phone: [facility] 06-05-2023 13:23-0400 SaO2% (BldA) [Mass fraction] 97 % DO Shannon Szymanskileigha Work Phone: [facility] 06-05-2023 13:23-0400 Systolic blood pressure 129 mm[Hg] DO IsatuReno Szymanskileigha Work Phone: [facility] 06-05-2023 09:32-0400 Body height 162.56 cm DO IsatuReno Szymanskileigha Work Phone: [facility] 06-05-2023 09:32-0400 Body weight 73.9 kg DO Shannon Szymanskileigha Work Phone: [facility] 06-05-2023 09:31-0400 Body temperature 97.5 [degF] DO IsatuReno Parish Gómez Work Phone: [facility] 01-16-2023 13:18-0400 Body height 162.6 cm [facility] 01-16-2023 13:18-0400 Body weight 68.04 kg [facility] 11-21-2022 08:00-0500 Body height 162.6 cm [facility] Work Phone: [facility] 11-21-2022 08:00-0500 Body weight 64.86 kg [facility] Work Phone: [facility] 10-11-2022 10:08-0500 Body height 162.6 cm Isra Masters Work Phone: [facility] 10-11-2022 10:08-0500 Body weight 78.02 kg Isra Masters DO Work Phone: [facility] 10-11-2022 10:08-0500 Diastolic blood pressure 97 mm[Hg] Isra Masters DO Work Phone: [facility] 10-11-2022 10:08-0500 Heart rate 89 /min Isra Masters DO Work Phone: [facility] 10-11-2022 10:08-0500 Systolic blood pressure 141 mm[Hg] Isra Masters DO Work Phone: [facility] 10-10-2022 14:30-0500 Body height 162.56 cm Beto Olexa Other [employer] Other 10-10-2022 14:30-0500 Body mass index (BMI) [Ratio] 28.66 kg/m2 Beto Olexa Other [employer] Other 10-10-2022 14:30-0500 Body weight 75.75 kg Beto Olexa Other [employer] Other 07-26-2022 11:13-0400 Body height 162.6 cm Mary Obrien MD Work Phone: [facility] 07-26-2022 11:13-0400 Body temperature 97.5 [degF] Mary Obrien MD Work Phone: [facility] 07-26-2022 11:13-0400 Body weight 77.56 kg Mary Obrien MD Work Phone: [facility] 07-26-2022 11:13-0400 Diastolic blood pressure 83 mm[Hg] Mary Obrien MD Work Phone: [facility] 07-26-2022 11:13-0400 Heart rate 95 /min Mary Obrien MD Work Phone: [facility] 07-26-2022 11:13-0400 SaO2% (BldA) [Mass fraction] 97 % Mary Obrien MD Work Phone: [facility] 07-26-2022 11:13-0400 Systolic blood pressure 110 mm[Hg] Mary Obrien MD Work Phone: [facility] 05-26-2022 11:45-0400 Body height 162.56 cm Beto Snyder Other [employer] Other 05-26-2022 11:45-0400 Body mass index (BMI) [Ratio] 29.18 kg/m2 Beto Snyder Other [employer] Other 05-26-2022 11:45-0400 Body weight 77.11 kg Beto Snyder Other [employer] Other 05-12-2022 09:06-0400 Diastolic blood pressure 80 mm[Hg] Eliceo Gómez Work Phone: [facility] [facility] DO Work Phone: 05-12-2022 09:06-0400 Systolic blood pressure 126 mm[Hg] Eliceo Gómez Work Phone: [facility] DO Work Phone: 05-12-2022 08:57-0400 Body height 162.56 cm Eliceo Gómez Work Phone: [facility] [facility] DO Work Phone: 05-12-2022 08:57-0400 Body mass index (BMI) [Ratio] 29.87 kg/m2 Eliceo Gómez Work Phone: [facility] [facility] DO Work Phone: 05-12-2022 08:57-0400 Body surface area Derived from formula 1.84 m2 Eliceo Gómez Work Phone: [facility] DO Work Phone: 05-12-2022 08:57-0400 Body weight 78.93 kg Eliceo Gómez Work Phone: [facility] DO Work Phone: 05-12-2022 08:57-0400 Diastolic blood pressure 80 mm[Hg] Eliceo Gómez Work Phone: [facility] DO Work Phone: 05-12-2022 08:57-0400 Heart rate 68 /min Eliceo Gómez Work Phone: [facility] DO Work Phone: 05-12-2022 08:57-0400 Systolic blood pressure 130 mm[Hg] Eliceo Gómez Work Phone: [facility] DO Work Phone: 05-10-2022 12:30-0400 Body height 162.56 cm Allison Arita Other [employer] Other 05-10-2022 12:30-0400 Body mass index (BMI) [Ratio] 29.18 kg/m2 Allison Arita Other [employer] Other 05-10-2022 12:30-0400 Body temperature 97.3 [degF] Allison Arita Other [employer] Other 05-10-2022 12:30-0400 Body weight 77.11 kg Allison Arita Other [employer] Other 05-10-2022 12:30-0400 Respiratory rate 18 /min Allison Arita Other [employer] Other 05-10-2022 12:30-0400 SaO2% (BldA) [Mass fraction] 98 % Allison Arita Other [employer] Other 04-22-2022 12:04-0400 Body height 162.6 cm Jessi Sheets APRN.PAINT ROLLER 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 Work Phone: [facility] 04-22-2022 12:04-0400 Body weight 77.56 kg Jessi Sheets FINISH FILER.PAINT ROLLER 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 Work Phone: [facility] 04-22-2022 12:04-0400 Diastolic blood pressure 68 mm[Hg] Jessi Sheets FINISH FILER.PAINT ROLLER 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 Work Phone: [facility] 04-22-2022 12:04-0400 Heart rate 76 /min Jessi Sheets FINISH FILER.PAINT ROLLER 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 Work Phone: [facility] 04-22-2022 12:04-0400 SaO2% (BldA) [Mass fraction] 98 % Jessi Sheets FINISH FILER.PAINT ROLLER 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 Work Phone: [facility] 04-22-2022 12:04-0400 Systolic blood pressure 104 mm[Hg] Jessi Sheets FINISH FILER.PAINT ROLLER 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 Work Phone: [facility] 03-15-2022 16:30-0400 Body height 162.56 cm Beto Snyder Other [employer] Other 03-15-2022 16:30-0400 Body mass index (BMI) [Ratio] 30.55 kg/m2 Beto Snyder Other [employer] Other 03-15-2022 16:30-0400 Body weight 80.74 kg Beto Snyder Other [employer] Other 03-15-2022 08:36-0400 Body height 162.6 cm Isra Galarzae DO Work Phone: [facility] 03-15-2022 08:36-0400 Body weight 83.01 kg Isra Masters DO Work Phone: [facility] 03-15-2022 08:36-0400 Diastolic blood pressure 87 mm[Hg] Isra Masters DO Work Phone: [facility] 03-15-2022 08:36-0400 Heart rate 85 /min Isra Masters DO Work Phone: [facility] 03-15-2022 08:36-0400 SaO2% (BldA) [Mass fraction] 100 % Isra Masters DO Work Phone: [facility] 03-15-2022 08:36-0400 Systolic blood pressure 133 mm[Hg] Isra Masters DO Work Phone: [facility] 03-14-2022 10:23-0400 Body height 162.6 cm [facility] Work Phone: [facility] 03-14-2022 10:23-0400 Body temperature 97.2 [degF] [facility] 4 Work Phone: [facility] 03-14-2022 10:23-0400 Body weight 83.01 kg [facility] 4 Work Phone: [facility] 03-14-2022 10:23-0400 Diastolic blood pressure 76 mm[Hg] [facility] 4 Work Phone: [facility] 03-14-2022 10:23-0400 Heart rate 74 /min [facility] 4 Work Phone: [facility] 03-14-2022 10:23-0400 Respiratory rate 16 /min [facility] 4 Work Phone: [facility] 03-14-2022 10:23-0400 SaO2% (BldA) [Mass fraction] 98 % [facility] 4 Work Phone: [facility] 03-14-2022 10:23-0400 Systolic blood pressure 114 mm[Hg] [facility]acc 4 Work Phone: [facility] 02-18-2022 09:43-0400 Body height 162.6 cm Nelsy Chávez FINISH FILER.PAINT ROLLER 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 Work Phone: [facility] 02-18-2022 09:43-0400 Body weight 80.29 kg Nelsy Chávez FINISH FILER.PAINT ROLLER 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 Work Phone: [facility] 02-18-2022 09:43-0400 Diastolic blood pressure 70 mm[Hg] Nelsy Chávez FINISH FILER.PAINT ROLLER 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 Work Phone: [facility] 02-18-2022 09:43-0400 Systolic blood pressure 110 mm[Hg] Nelsy Chávez FINISH FILER.PAINT ROLLER 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 Work Phone: [facility] 02-08-2022 14:52-0400 Body height 162.6 cm Mary Obrien MD Work Phone: [facility] 02-08-2022 14:52-0400 Body weight 83.01 kg Mary Obrien MD Work Phone: [facility] 02-08-2022 14:52-0400 Diastolic blood pressure 76 mm[Hg] Mary Obrien MD Work Phone: [facility] 02-08-2022 14:52-0400 Heart rate 79 /min Mary Obrien MD Work Phone: [facility] 02-08-2022 14:52-0400 SaO2% (BldA) [Mass fraction] 97 % Mary Obrien MD Work Phone: [facility] 02-08-2022 14:52-0400 Systolic blood pressure 113 mm[Hg] Mary Obrien MD Work Phone: [facility] 02-08-2022 11:19-0400 Body weight 83.01 kg Magali Mitchell FINISH FILER.PAINT ROLLER 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 Work Phone: [facility] 02-08-2022 11:19-0400 Diastolic blood pressure 76 mm[Hg] Magali Mitchell FINISH FILER.PAINT ROLLER 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 Work Phone: [facility] 02-08-2022 11:19-0400 Heart rate 74 /min Magali Mitchell FINISH FILER.PAINT ROLLER 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 Work Phone: [facility] 02-08-2022 11:19-0400 Systolic blood pressure 113 mm[Hg] Magali Mitchell FINISH FILER.PAINT ROLLER 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 Work Phone: [facility] 10-20-2021 09:45-0500 Body height 162.56 cm Beto Snyder Other [facility] Other 10-20-2021 09:45-0500 Body mass index (BMI) [Ratio] 31.41 kg/m2 Beto Snyder Other [facility] Other 10-20-2021 09:45-0500 Body weight 83.01 kg Beto Snyder Other [facility] Other 08-19-2021 17:10-0400 Body height 162.56 cm Erica Kingston Other [facility] Other 08-19-2021 17:10-0400 Body mass index (BMI) [Ratio] 31.24 kg/m2 Erica Kingston Other [facility] Other 08-19-2021 17:10-0400 Body temperature 97.3 [degF] Erica Kingston Other [facility] Other 08-19-2021 17:10-0400 Body weight 82.56 kg Ericahero Kingston Other [facility] Other 08-19-2021 17:10-0400 Diastolic blood pressure 82 mm[Hg] Erica Vashti Other [facility] Other 08-19-2021 17:10-0400 Respiratory rate 18 /min Erica Kingston Other [facility] Other 08-19-2021 17:10-0400 SaO2% (BldA) [Mass fraction] 98 % Ericahero Kingston Other [facility] Other 08-19-2021 17:10-0400 Systolic blood pressure 126 mm[Hg] Erica Kumarmond Other [facility] Other 08-13-2021 10:15-0400 Body height 162.56 cm Tita Ginty Other [facility] Other 08-13-2021 10:15-0400 Body mass index (BMI) [Ratio] 30.89 kg/m2 Tita Ginty Other [facility] Other 08-13-2021 10:15-0400 Body temperature 6 [degF] Tita Ginty Other [facility] Other 08-13-2021 10:15-0400 Body weight 81.65 kg Tita Ginty Other [facility] Other 08-13-2021 10:15-0400 SaO2% (BldA) [Mass fraction] 99 % Tita Ginty Other [facility] Other 07-28-2021 09:30-0400 Body height 162.56 cm Beto Snyder Other [facility] Other 07-28-2021 09:30-0400 Body mass index (BMI) [Ratio] 30.89 kg/m2 Beto Pradeeptonia Other [facility] Other 07-28-2021 09:30-0400 Body weight 81.65 kg Beto Snyder Other [facility] Other Encounters Encounter Date Encounter Type Care Provider Facility Start: 08-26-2024 ambulatory MERISSA DELAROSA Facilit y:[facility] Start: 08-07-2024 ambulatory PADMAJA LLAMAS Facility:[facility] Start: 08-05-2024 End: 08-05-2024 ambulatory Ace Ahumada MD Facility: [facility] Start: 08-01-2024 End: 08-01-2024 ambulatory ELICEO GÓMEZ Not Available Start: 07-26-2024 End: 07-26-2024 ambulatory [facility] Start: 07-22-2024 End: 07-22-2024 ambulatory Ace Ahumada MD Facility: [facility] Start: 07-15-2024 End: 07-15-2024 ambulatory ELICEO GÓMEZ Not Available Start: 07-11-2024 End: 07-11-2024 ambulatory ELICEO GÓMEZ Not Available Start: 07-01-2024 End: 07-01-2024 ambulatory Ace Ahumada MD Facility: [facility] Start: 06-27-2024 End: 06-27-2024 ambulatory SIDNEY AMEZQUITA Not Available Start: 06-17-2024 End: 06-17-2024 ambulatory Ace Ahumada MD Facility: [facility] Start: 06-14-2024 End: 06-14-2024 ambulatory CARMEN CUEVAI Not Available Start: 06-12-2024 Refill [facility] DO Work Phone: Gastroenterology Comment on above: Refill Request Start: 06-12-2024 End: 06-12-2024 ambulatory DIPTI SLAUGHTERER Not Available Start: 06-12-2024 End: 06-12-2024 ambulatory RON KING Not Available Start: 06-03-2024 End: 06-03-2024 ambulatory CARMEN Guzman PETPARESHI Not Available Start: 05-27-2024 End: 05-27-2024 ambulatory DO Shannon Gómez Work Phone: [facility] Work Phone: Start: 05-27-2024 End: 05-27-2024 Departed Referred DO Shannon Gómez Work Phone: [facility] Start: 05-20-2024 End: 05-20-2024 ambulatory DIPTI ACEVEDO Not Available Start: 05-14-2024 End: 05-14-2024 ambulatory ELICEO GÓMEZ Not Available Start: 05-13-2024 End: 05-13-2024 ambulatory Ace Ahumada MD Facility: [facility] Start: 05-06-2024 End: 05-06-2024 ambulatory NELSY SNYDER Not Available Start: 05-02-2024 End: 05-02-2024 ambulatory ELICEO GÓMEZ Not Available Start: 04-30-2024 End: 04-30-2024 Patient encounter procedure DO Shannon Gómez Work Phone: [facility] [address] Work Phone: Start: 04-30-2024 End: 04-30-2024 ambulatory DO Shannon Gómez Work Phone: [facility] Work Phone: Start: 04-28-2024 End: 04-29-2024 ambulatory Ace Ahumada MD Facility: [facility] Start: 04-28-2024 End: 04-28-2024 ambulatory [facility] Start: 04-22-2024 End: 04-22-2024 ambulatory Ace Ahumada MD Facility:[facility] Start: 04-15-2024 End: 04-15-2024 ambulatory SIDNEY AMEZQUITA Not Available Start: 04-12-2024 ambulatory MILAGROS FRANCO Facility:[facility] Start: 04-12-2024 End: 04-12-2024 Subsequent hospital visit by physician Milagros Franco MD, PhD Work Phone: [facility] [place] Comment on above: Arrived Start: 04-03-2024 End: 04-03-2024 ambulatory [facility] Start: 03-26-2024 End: 03-26-2024 ambulatory JES JUAN Not Available Start: 03-25-2024 End: 03-25-2024 ambulatory Ace Ahumada MD Facility:[facility] Start: 03-14-2024 End: 03-14-2024 ambulatory RON Nicole KING Not Available Start: 03-12-2024 ambulatory Flower Sanabria on FINISH FILER.PAINT ROLLER 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 Work Phone: URO/Gynecology Comment on above: Estradiol vaginal cr eam Start: 03-08-2024 ambulatory Shannon Ramos ty:[facility] Start: 03-06-2024 ambulatory Shannon Ramos ty:[facility] Start: 03-06-2024 ambulatory Shannon Ramos ty:[facility] Start: 03-06-2024 ambulatory Shannon Ramos ty:[facility] Start: 03-04-2024 End: 03-04-2024 ambulatory Ace Ahumada MD Facility:[facility] Start: 02-27-2024 End: 02-27-2024 ambulatory FLOWER LOPEZ Facility:[facility] Start: 02-27-2024 End: 02-27-2024 Patient encounter procedure Flower Payam FINISH FILER.PAINT ROLLER 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 Work Phone: URO/Gynecology Comment on above: Post-operative state (Primary Dx); Vaginal burning Start: 02-26-2024 End: 02-26-2024 ambulatory [facility] Start: 02-11-2024 End: 02-11-2024 ambulatory ELICEO GÓMEZ JR Facility:[facility] Start: 02-11-2024 End: 02-11-2024 ambulatory Lissa Doyle FINISH FILER.PAINT ROLLER 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 Work Phone: Telemedicine Comment on above: Procedure and treatm ent not carried out for other reasons (Primary Dx) Start: 02-11-2024 End: 02-11-2024 Telemedicine consultation with patient Lissa Vivek FINISH FILER.PAINT ROLLER 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 Work Phone: [facility] Start: 02-09-2024 End: 02-09-2024 ambulatory Pam Wang MD Work Phone: URO/Gynecology Comment on above: Yeast infection Start: 02-07-2024 End: 02-07-2024 ambulatory [facility] Start: 01-27-2024 Telephone encounter Radha florez MD Work Phone: Gynecology Start: 01-26-2024 End: 01-26-2024 ambulatory ELICEO PARISH SZYMANSKILEIGHA JENKINS Facility:[facility] Start: 01-25-2024 End: 01-25-2024 Telemedicine consultation with patient Nurse Test Clerk Work Phone: [facility] Start: 01-25-2024 Encounter for other preprocedural examination [facility] Start: 01-25-2024 End: 01-25-2024 [facility] Work Phone: [facility] Start: 01-25-2024 End: 01-25-2024 ambulatory Nurse Test Clerk Work Phone: Pre Anesthesia Comment on above: Pre-op examination ( Primary Dx); Obesity (BMI 30.0-34.9); Mild persistent asthma without complication; CHUCKIE (obstructive sleep apnea); Primary hypertension; Gastroparesis; Gastroesophageal reflux disease, unspecified whether esophagitis present Educational circumst ances (Primary Dx) Start: 01-25-2024 End: 01-25-2024 Preprocedural examination done [facility] Work Phone: [facility] Work Phone: Start: 01-23-2024 End: 01-23-2024 ambulatory ELICEO GÓMEZ Not Available Start: 01-15-2024 End: 01-15-2024 ambulatory Ace Ahumada MD Facility:[facility] Start: 01-10-2024 End: 01-10-2024 ambulatory [facility] Start: 01-10-2024 End: 01-10-2024 Postop follow up visit related to original px Cullen Dawkins MD Work Phone: [facility] Comment on above: CHUCKIE (obstructive sle ep apnea) (Primary Dx) Start: 01-03-2024 End: 01-03-2024 Evaluation and management of inpatient [place] [facility] Start: 01-02-2024 End: 01-03-2024 Evaluation and management of inpatient [facility] Start: 01-02-2024 End: 01-02-2024 Evaluation and management of inpatient [facility] Start: 12-27-2023 Telephone encounter Cullen glover MD Work Phone: [facility] Start: 12-25-2023 ambulatory Pam rios MD Work Phone: URO/Gynecology Comment on above: Having another stimu lator besides bladder Start: 12-25-2023 Telephone encounter Pam simon MD Work Phone: Gynecology Comment on above: Question Start: 12-25-2023 End: 12-25-2023 ambulatory Ace Ahumada MD Facility:[facility] Start: 12-20-2023 End: 12-20-2023 ambulatory [facility] Start: 12-20-2023 Encounter for other preprocedural examination [facility] Start: 12-20-2023 End: 12-20-2023 Patient encounter procedure [facility] [address] [place] Comment on above: Pre-op testing (Prim tomer Dx) Start: 12-20-2023 End: 12-20-2023 Patient encounter status [facility] Start: 12-11-2023 End: 12-11-2023 ambulatory Ace Ahumada MD Facility: [facility] Start: 11-30-2023 End: 11-30-2023 ambulatory EAGLE VAZQUEZ Not Available Start: 11-27-2023 End: 11-27-2023 ambulatory Beto Snyder Other [facility] Other Start: 11-27-2023 Telephone encounter [facility] Start: 11-23-2023 End: 11-23-2023 Patient encounter procedure DO Shannon Gómez Work Phone: [facility] Work Phone: Start: 11-23-2023 End: 11-23-2023 ambulatory DO Shannon Gómez Work Phone: [facility] Work Phone: Start: 11-21-2023 End: 11-21-2023 ambulatory ELICEO GÓMEZ JR Facility:[facility] Start: 11-16-2023 End: 11-16-2023 ambulatory Beto Snyder Other [facility] Other Start: 11-16-2023 Telephone encounter [facility] Start: 11-14-2023 End: 11-14-2023 ambulatory DIPTI ACEVEOD Not Available Start: 11-14-2023 End: 11-14-2023 ambulatory EAGLE VAZQUEZ Not Available Start: 11-10-2023 End: 11-10-2023 ambulatory ELICEO GÓMEZ Not Available Start: 11-08-2023 Telephone encounter Emily Zamora [facility] Start: 10-31-2023 End: 10-31-2023 ambulatory RON KING Not Available Start: 10-27-2023 End: 10-27-2023 ambulatory EAGLE VAZQUEZ Not Available Start: 10-26-2023 Telephone encounter [facility] Start: 10-26-2023 End: 10-26-2023 ambulatory RON KING [facility] [employer] Other Start: 10-24-2023 End: 10-24-2023 ambulatory EAGLE VAZQUEZ Not Available Start: 10-23-2023 End: 10-23-2023 ambulatory [facility] Start: 10-10-2023 End: 10-10-2023 ambulatory ELICEO GÓMEZ Facility:[facility] Start: 10-06-2023 End: 10-06-2023 ambulatory Beto Snyder Other [place] [employer] Other Start: 10-06-2023 Telephone encounter [facility] Start: 10-03-2023 End: 10-03-2023 ambulatory ELICEO GÓMEZ Not Available Start: 09-27-2023 End: 09-27-2023 ambulatory Pam Wang MD Work Phone: Urogynecology Comment on above: Worsening Start: 09-27-2023 Refill Dorisfarheen Arias APRN.PAINT ROLLER 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 Work Phone (unformatted): [phone] Urogynecology Comment on above: Med Change Request Start: 09-21-2023 End: 09-21-2023 ambulatory ELICEO GÓMEZ Not Available Start: 09-11-2023 End: 09-11-2023 ambulatory PAM WANG Facility:[facility] Start: 08-23-2023 End: 08-23-2023 ambulatory GIANA [facility] Start: 08-12-2023 End: 08-12-2023 Emergency department patient visit LEX SALMON [facility] Start: 08-12-2023 End: 08-12-2023 Emergency department patient visit Lex Salmon MD Work Phone: [facility] Comment on above: Upper abdominal pain (Primary Dx) Start: 08-09-2023 ambulatory Mary Obrien MD Work Phone: Colorectal Surgery Comment on above: Response Start: 08-07-2023 End: 08-07-2023 ambulatory Mary Obrien MD Work Phone: Colorectal Surgery Comment on above: Colon Start: 08-01-[address] Eliceo Gómez Jr Facility: Start: 07-31-2023 End: 07-31-2023 ambulatory ELICEO GÓMEZ JR Facility:[facility] Start: 07-31-2023 End: 07-31-2023 Patient encounter procedure Nelsy Chávez HARMAN Work Phone: URO/Gynecology Comment on above: Incomplete bladder e mptying (Primary Dx); Constipation, unspecified constipation type; Urinary urgency; Urinary frequency; Nocturia Start: 07-17-2023 (Procedure) Win Snyder [facility] Start: 07-17-2023 End: 07-17-2023 ambulatory Beto Snyder Other [facility] Other Start: 07-12-2023 End: 07-12-2023 ambulatory Beto Snyder Other [facility] Other Start: 07-12-2023 Telephone encounter Beto Snyder [facility] Start: 06-13-2023 Office consultation new/estab patient 60 min Eliceo Gómez Work Phone: [facility] 320 DO Work Phone: Start: 06-13-[address] Dipti Anaya Facility: Start: 06-07-[address] Dipti Anaya Facility:[id number] Start: 06-05-2023 End: 06-05-2023 Emergency department patient visit DO Shannon Gómez Work Phone: [facility] Work Phone: Start: 05-28-2023 ambulatory Pam rios MD Work Phone: URO/Gynecology Comment on above: Problems with urinat ing Start: 04-26-2023 End: 04-26-2023 ambulatory Beto Snyder Other [facility] Other Start: 04-26-2023 Office outpatient vi sit 25 minutes Beto Snyder [facility] [place] [facility] Start: 04-11-2023 Refill Isra S Clin e DO Work Phone: Gastroenterology Comment on above: Refill Request Start: 04-04-2023 End: 04-05-[address] Isatu GÓMEZ Facility:[facility] Start: 03-19-2023 ambulatory Isra S Clin e DO Work Phone: Gastroenterology Comment on above: Stool sample results Start: 03-17-2023 End: 03-17-2023 ambulatory DO Shannon Gómez Work Phone: [facility] Work Phone: Start: 03-17-2023 End: 03-17-2023 Discharged Recurring DO Shannon Gómez Work Phone: [facility] [place] Work Phone: Start: 03-15-2023 Orders Only Isra [...] Comment on above: Clarification Start: 01-19-2023 ambulatory iWnston Keys Caroline chand DO Work Phone: General Surgery Comment on above: General Start: 01-16-2023 Telephone encounter Mounika Jain bud PETERS Work Phone: Pre Anesthesia Comment on above: Appointment (Pt has not arrived for her 1 pm appointment) Start: 01-16-2023 End: 01-16-2023 Admission to [facility] Virtual [facility] Start: 01-16-2023 End: 01-16-2023 ambulatory [facility] Pre Anesthesia Comment on above: [...] patient Winston Keys Brielle DO Work Phone: [facility] Start: 12-28-2022 ambulatory Yoni Tuttle [...] End: 12-22-2022 Telemedicine consultation with patient Winston Zoya Hannah DO Work Phone: [facility] Start: 12-21-2022 End: 12-22-2022 [facility] Start: 12-15-2022 End: 12-15-2022 Manual pelvic examination Mary Obrien MD Work Phone: Colorectal Surgery Comment on above: Colonic inertia (Phoebe unique Dx); Pelvic floor dysfunction; Nausea; Gastroparesis Start: 12-15-2022 End: 12-15-2022 Telemedicine consultation with patient Mary Obrien MD Work Phone: [facility] Start: 12-14-2022 ambulatory Yoni Tuttle MD Work [...] 12-05-2022 ambulatory Winston chand DO Work Phone: [facility] Start: 12-02-2022 ambulatory Isar S Clin e DO Work Phone: [facility] Start: 12-02-2022 Telephone encounter Yoni Tuttle MD Work Phone: Neurology Comment on above: Returning Nurse Call Start: 12-01-2022 End: 12-02-2022 ambulatory NIECY DURON Facility:[facility] Start: 11-30-2022 End: 11-30-2022 ambulatory Isra Masters DO Work Phone: Gastroenterology Comment on above: Chronic idiopathic c onstipation (Primary Dx); Nausea Start: 11-30-2022 End: 11-30-2022 Telemedicine consultation with patient Isra Masters DO Work Phone: [facility] Start: 11-24-2022 ambulatory Isra [facility] e [...] Start: 11-21-2022 End: 11-21-2022 Admission to establishment [facility] Work Phone: [facility] Start: 11-21-2022 End: 11-21-2022 Preprocedural examination done [facility] 2 Work Phone: Pre Anesthesia Start: 11-17-2022 ambulatory Annmarie Gillespie RN Gastroe nterology Start: 11-17-2022 Patient encounter procedure Annmarie Gillespie RN [facility] Start: 11-17-2022 End: 11-17-2022 Subsequent hospital visit by physician Capsule Work Phone: Gastroenterology Start: 01-11-2023 ambulatory Yoni Tuttle MD Work Phone: NEUROLOGY Comment on above: The delay Start: 11-15-2022 ambulatory Yoni Tuttle MD Work Phone: NEUROLOGY Comment on above: Labs Start: 11-14-2022 End: 11-15-2022 ambulatory NIECY DURON Facility:[facility] Start: 11-10-2022 Telephone encounter Annmarie Gillespie RNbid writer Comment on above: Preparations For Pro cedures [...] Smart pill Start: 10-24-2022 Telephone encounter Isra Thorpe Masters DO Work Phone: Gastroenterology Comment on above: Patient Question Start: 10-23-2022 [facility] Start: 10-20-2022 End: 10-20-2022 ambulatory Isra Galarzae DO Work Phone: Gastroenterology Comment on above: Smart pill Cpap Start: 10-19-2022 End: 10-19-2022 ambulatory JENNIFER GARCIA Facility:[facility] Start: 10-18-2022 Refill Isra Thorpe Clin e DO Work Phone: Gastroenterology Comment on above: Refill Request Start: 10-17-2022 Telephone encounter Yoni uTttle MD Work Phone: Neurology Comment on above: PAP Rx Faxed (DME: S HS ) Start: 10-17-2022 End: 10-18-[address] Isatu GÓMEZ Facility:[facility] Start: 10-14-2022 End: 10-14-2022 ambulatory DO Shannon Gómez Work Phone: [facility] Work Phone: Start: 10-14-2022 End: 10-14-2022 Discharged Recurring DO Shannon Parish Ngtomasa Work Phone: [facility] [place] Work Phone: Start: 10-13-2022 End: 10-14-2022 ambulatory [facility] Facility:[facility] Start: 10-13-2022 End: 10-14-2022 Encounter for preprocedural laboratory examination [facility] Facility:[facility] Start: 10-11-2022 End: 10-11-2022 ambulatory Beto Cartagena Other [facility] Other Start: 10-11-2022 Telephone encounter Beto Cartagena [facility] Floorworker Distributor Start: 10-11-2022 End: 10-11-2022 Patient encounter procedure Isra Thorpe Masters DO Work Phone: Gastroenterology Comment on above: Gas bloat syndrome ( Primary Dx); Chronic idiopathic constipation; Gastroparesis Start: 10-10-2022 End: 10-10-2022 ambulatory Beto Cartagena Other [facility] Other Start: 10-10-2022 Office outpatient ne w 30 minutes Beto Cartagena [facility] Start: 10-06-2022 End: 10-06-2022 ambulatory Beto Snyder Other [facility] Other Start: 10-06-2022 Patient encounter procedure Beto Snyder [facility] [place] [facility] Start: 09-28-2022 Encounter for other preprocedural examination [facility] Start: 09-28-2022 Encounter for preprocedural cardiovascular examination [facility] Start: 09-26-2022 End: 09-27-2022 ambulatory [facility] Facility:[facility] Start: 09-22-2022 Office outpatient vi sit 25 minutes Beto Snyder [facility] [place] Start: 09-22-2022 Telephone encounter Beto Snyder [facility] [place] Start: 09-22-2022 End: 09-22-2022 ambulatory DO Shannon Gómez Work Phone: [facility] Other Start: 09-22-2022 End: 09-22-2022 Patient encounter procedure DO Shannon Gómez Work Phone: [facility] Start: 09-14-2022 End: 09-14-2022 ambulatory Eliceo Gómez Other [facility] Other Start: 09-14-2022 Encounter by sierra Gómez [facility] [place] [facility] Start: 09-14-2022 Office outpatient vi sit 15 minutes Beto Snyder [facility] [place] Start: 09-14-2022 Telephone encounter Beto Snyder FP [facility] Start: 08-16-2022 ambulatory Mary Obrien MD Work Phone: Colorectal Surgery Comment on above: CT results Ct scan result quest ion Start: 08-16-2022 E-mail encounter kendra m caregiver Mary Obrien MD Work Phone: [facility] Start: 08-12-2022 End: 08-12-2022 Subsequent hospital visit by physician Jahaira York [facility] Start: 07-27-2022 End: 07-28-2022 ambulatory [facility] Facility: Start: 07-26-2022 Telephone encounter Isra Masters DO Work Phone: Gastroenterology Comment on above: Medication Problem; Medication 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 ([place] for Dexlansoprazole) Start: 07-26-2022 End: 07-26-2022 Patient encounter procedure Mary Obrien MD Work Phone: Colorectal Surgery Comment on above: Follow-up examinatio n after colorectal surgery (Primary Dx); Periumbilical abdominal pain; Outlet dysfunction constipation; Colonic inertia Start: 06-08-2022 (Procedure) Short Beto Snyder [facility] Start: 06-08-2022 End: 06-08-2022 ambulatory Beto Snyder Other [facility] Other Start: 05-30-2022 Refill Mary Obrien MD Work Phone: Colorectal Surgery Comment on above: Refill Request Start: 05-26-2022 End: 05-26-2022 ambulatory Beto Snyder Other [facility] Other Start: 05-26-2022 Office outpatient vi sit 25 minutes Beto Snyder [facility] [place] [facility] Start: 05-12-2022 Office consultation new/estab patient 60 min Eliceo Gómez Work Phone: [facility] [facility] DO Work Phone: Start: 05-10-2022 End: 05-10-2022 ambulatory Allison Arita Other [facility] Other Start: 05-10-2022 Office outpatient vi sit 15 minutes Allison Arita [facility] Start: 05-03-2022 Telephone encounter Mary brewer MD Work Phone: Colorectal Surgery Comment on above: 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 Medication Preauthor ization ([place] for Dexilant renewal) Outside Labs Results Start: 03-15-2022 End: 03-15-2022 Patient encounter procedure Isra Masters DO Work Phone: Gastroenterology Comment on above: Gastroesophageal ref lux disease, unspecified whether esophagitis present; Chronic idiopathic constipation Start: 03-14-2022 End: 03-14-2022 [facility] 4 Work Phone: Pre Anesthesia Comment on above: Preop examination (P rimary Dx); Attention to ileostomy ([facility]); Primary hypertension; Gastroparesis; Gastroesophageal reflux disease, unspecified whether esophagitis present; Mild persistent asthma without complication; Bipolar 1 disorder ([facility]); Obesity (BMI 30.0-34.9) Start: 03-14-2022 End: 03-14-2022 Preprocedural examination done [facility] 4 Work Phone: Pre Anesthesia Start: 02-28-2022 Telephone encounter Isra Masters DO Work Phone: Gastroenterology Comment on above: Appointment (for scr ipt refill) Start: 02-18-2022 End: 02-18-2022 Patient encounter procedure Nelsy Chávez APRN.PAINT ROLLER 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 Work Phone: URO/Gynecology Comment on above: Postoperative state (Primary Dx) Start: 02-11-2022 End: 02-11-2022 ambulatory Flaca Bartholomew PT Work Phone: [facility] Start: 02-11-2022 End: 02-11-2022 Follow-up encounter Flaca Bartholomew PT Work Phone: [place] [facility] Physical Therapy Comment on above: Pelvic floor dysfunc tion (Primary Dx); Lack of coordination; Follow-up examination after colorectal surgery Start: 02-09-2022 (Procedure) Win Snyder [facility] Start: 02-09-2022 End: 02-09-2022 ambulatory Beto Snyder Other [facility] Other Start: 02-08-2022 End: 02-08-2022 Patient encounter [...] Newton Woodward PT Work Phone: [facility] Start: 01-31-2022 End: 01-31-2022 Follow-up encounter Newton Woodward PT Work Phone: [facility] Physical Therapy Comment on above: Pelvic floor dysfunc tion (Primary Dx); Lack of coordination; Follow-up examination after colorectal surgery Start: 11-25-2021 End: 11-25-2021 ambulatory Beto Snyder Other [facility] Other Start: 11-25-2021 Office outpatient vi sit 25 minutes Beto Steven [facility] [place] [facility] Start: 11-17-2021 End: 11-18-2021 ambulatory [facility] Start: 10-20-2021 End: 10-20-2021 ambulatory Beto Snyder Other [facility] Other Start: 10-20-2021 Office outpatient vi sit 25 minutes Beto Steven [facility] [place] Start: 10-13-2021 (Procedure) Win Snyder [facility] Start: 10-13-2021 End: 10-13-2021 ambulatory Beto Snyder Other [facility] Other Start: 09-06-2021 Office outpatient vi sit 25 minutes Beto Snyder [facility] [place] Start: 08-19-2021 Office outpatient vi sit 15 minutes Erica Kingston [facility] Start: 08-13-2021 Office outpatient vi sit 15 minutes Tita Daugherty [facility] Start: 08-12-2021 Office outpatient vi sit 25 minutes Beto Snyder [facility] [place] Start: 07-28-2021 Office outpatient vi sit 25 minutes Beto Snyder [facility] [place] Start: 12-25-2020 End: 12-25-2020 Subsequent hospital visit by physician Brianna Connors 1 Work Phone: Radiology Comment on above: Post-operative state [Z98.890] Start: 09-29-2020 End: 09-29-2020 Subsequent hospital visit by physician Brianna Connors 1 Work Phone: Radiology Comment on above: Pain [R52] Procedures Date Procedure Procedure Detail Performing Clinician Start: 07-26-2024 Follow-up visit Follow-up PAULINE HOUSTON Start: 04-30-2024 MRI of right ankle DO Isatu Gómez Work Phone: Start: 04-12-2024 DIAGNOSTIC UPPER ENDOSCOPY Padmaja Llamas MD, PhD Work Phone: Start: 02-27-2024 BACTERIAL VAGINOSIS NAAT Flower Lopez FINISH FILER.PAINT ROLLER 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 Work Phone: Start: 02-27-2024 [place] trichomonas vaginalis amplified probe tech Flower Lopez FINISH FILER.PAINT ROLLER 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 Work Phone: Start: 02-27-2024 Urnls dip stick/tabl et rgnt auto w/o microscopy Flower Lopez FINISH FILER.PAINT ROLLER 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 Work Phone: Start: 12-20-2023 Basic metabolic pane [...] Assay of troponin quantitative Lev Ritter APRN PAINT ROLLER 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 Work Phone: Start: 08-12-2023 Ct abdomen & pelvis w/contrast material Lev Ritter APRN PAINT ROLLER 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 Work Phone: Start: 08-12-2023 Urnls dip stick/tabl et reagent auto microscopy Lex Salmon MD Work Phone: Start: 08-12-2023 Basic metabolic pane l calcium total Lex Salmon MD Work Phone: Start: 08-12-2023 DARK GREEN TOP Lex buitrago MD Work Phone: Start: 08-12-2023 GOLD TOP Lex urbina MD Work Phone: Start: 08-12-2023 Hepatic function panel Lev Ritter APRN PAINT [employer]LLER 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 Work Phone: Start: 08-12-2023 LIGHT BLUE TOP [...] et rgnt auto w/o microscopy Nelsy Chávez APRN.PAINT ROLLER 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 Work Phone: Start: 06-05-2023 Plain chest X-ray [...] - S jay or Plasma Nelsy Chávez FINISH FILER.PAINT ROLLER 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 Work Phone: Start: 02-08-2022 Urnls dip stick/tabl et rgnt auto w/o microscopy Magali Mitchell FINISH FILER.PAINT ROLLER 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 Work Phone: Start: 12-16-2021 Antibody screen Comment on above: Performed By: #### T SCR30 ####[place] [phone] Start: 10-15-2021 Antibody screen Comment on above: Performed By: #### T SCR30 ####[phone] Start: 06-28-2021 Mammography Mary brewer MD Work Phone: Start: 02-18-2021 H/O: surgery S/P nasal septoplasty C estephania Hissem Start: 02-18-2021 History of tonsillectomy S/P tonsill ectomy Emily Hissem Start: 12-25-2020 Radex shoulder compl ete minimum 2 views Chan Quinones PA-C Work Phone: Start: 09-29-2020 Radex shoulder compl ete minimum 2 views Ryan Lynne MD Work Phone: Colonoscopy Eliceo Gómez Work Phone: Hysterectomy Eliceo [...] DTAP/TDAP/TD VACCINE (2 - Td or Tdap) [facility] Start: 06-22-2030 DTaP,Tdap and Td Vaccines (2 - Td or Tdap) DTaP,Tdap and Td Vaccines (2 - Td or Tdap) [facility] Start: 06-22-2030 Tetanus vaccination TETANUS [facility] Start: 06-22-2030 Urine microalbumin profile DTaP,Tdap,Td Vaccine (2 - Td or Tdap) [facility] Start: 11-01-2028 Lipid panel Lipid Screening [facility] Start: 12-05-2027 COLORECTAL CANCER SCREENING COLORECTAL CANCER SCREENING [facility] Start: 12-05-2027 Screening for malign ant neoplasm of colon [facility] Start: 12-05-2027 SIGMOIDOSCOPY SIGMOIDOSCOPY [facility] Start: 03-02-2027 Lipid 1996 panel - S jay or Plasma Lipid Screening [facility] Start: 03-02-2027 LIPID SCREEN LIPID SCREEN [facility] Start: 12-20-2026 Diabetes Screening Diabetes Screenin g [facility] Start: 08-12-2026 Diabetes Screening Diabetes Screenin g [facility] Start: 04-05-2025 DIABETES SCREEN DIABETES SCREEN [facility] Start: 04-05-2025 Diabetes Screening Diabetes Screenin g [facility] Start: 03-14-2025 DIABETES SCREEN DIABETES SCREEN [facility] Start: 01-09-2025 Adult BMI Screening Adult BMI Screen ing [facility] Start: 01-09-2025 Tobacco Screening Tobacco Screening [facility] Start: 12-26-2024 DIABETES SCREEN DIABETES SCREEN [facility] Start: 12-20-2024 Adult BMI Screening Adult BMI Screen ing [facility] Start: 12-20-2024 Tobacco Screening Tobacco Screening [facility] Start: 10-31-2024 Screening for malign ant neoplasm of breast Mammogram Screening [facility] Start: 10-23-2024 Adult BMI Screening Adult BMI Screen ing [facility] Start: 10-23-2024 Depression Screening Depression Scre ening [facility] Start: 10-23-2024 Tobacco Screening Tobacco Screening [facility] Start: 10-10-2024 BP Controlled (<130/80) BP Controlle d (<130/80) [facility] Start: 07-07-2024 Covid-19 Vaccine ( season) Covid-19 Vaccine ( season) [facility] Start: 07-07-2024 Influenza vaccination Influenza Vacc ine (#1) [facility] Start: 05-31-2024 Zoster vaccine hzv l annika for subcutaneous use ZOSTER (SHINGLES) VACCINE (2 of 2) [facility] Start: 04-18-2024 End: 04-18-2024 Patient encounter procedure 04/18/2024 1:30 PM EDT Office Visit [facility] [address] [place] [phone] Pauline Christensen MD [address] [place] [address], [address] [place] [address] [facility] Start: 01-10-2024 End: 01-10-2024 Patient encounter procedure 01/10/2024 12:45 PM EST Office Visit [facility] [address] [place] [address], [address] [place] [address] Cullen Dawkins MD [address] [place] [address] [address] [place] [address] [facility] Start: 01-02-2024 End: 01-02-2024 Admission to same day surgery center 01/02/2024 11:00 AM EST - 01/02/2024 3:30 PM EST Surgery [facility] [address] [place] [address] Cullen Dawkins MD [address] [place] [address] [address] [facility] [address] INSERTION STIMULATOR NERVE HYPOGLOSSAL [33765 (CPT )] [facility] Comment on above: INSERTION STIMULATOR NERVE HYPOGLOSSAL [10555 (CPT )] Start: 01-02-2024 End: 01-02-2024 INSERTION STIMULATOR NERVE HYPOGLOSSAL INSERTION STIMULATOR NERVE HYPOGLOSSAL CHUCKIE (obstructive sleep apnea) 01/02/2024 11:00 AM EST [facility] Start: 01-02-2024 Subsequent hospital visit by physician 01/02/2024 11:00 AM EST Hospital Encounter [facility] [address] [place] [address] Cullen Dawkins MD [address] [place] [address] [address] [place] [address] [facility] Start: 11-06-2023 Behavioral Health Screening Behavioral Health Screening [facility] Start: 11-06-2023 Depression Assessment Depression Ass essment [facility] Start: 09-27-2023 End: 12-27-2023 Bacteria identified in Urine by Culture URINE CULTURE Microbiology Routine Burning with urination Expected: 09/27/2023, Expires: 12/27/2023 [facility] Work Phone: Comment on above: Expected: 09/27/2023 , Expires: 12/27/2023 Start: 09-14-2023 Screening for malign ant neoplasm of breast MAMMOGRAM [facility] Start: 08-01-2023 FUV, Provider: Dipti Anaya, Status: Gopal, Time: 11:00 AM FUV, Provider: Dipti Anaya, Status: Gopal, Time: 11:00 AM [facility] [place] 320 DO Work Phone: Start: 07-07-2023 Covid-19 Vaccine () Covid-19 Vaccine () [facility] Start: 07-07-2023 Influenza vaccination C [facility] Start: 07-07-2023 Influenza vaccinatio n given INFLUENZA VACCINE (#1) [facility] Start: 06-05-2023 [facility] Start: 04-22-2023 BP CONTROLLED (<130/80) BP CONTROLLE D (<130/80) [facility] Start: 03-14-2023 BP CONTROLLED (<130/80) BP CONTROLLE D (<130/80) [facility] Start: 02-18-2023 BP CONTROLLED (<130/80) BP CONTROLLE D (<130/80) [facility] Start: 02-08-2023 BP CONTROLLED (<130/80) BP CONTROLLE D (<130/80) [facility] Start: 01-18-2023 BP CONTROLLED (<130/80) BP CONTROLLE D (<130/80) [facility] Start: 11-06-2022 DEPRESSION ASSESSMENT DEPRESSION ASS ESSMENT [facility] Start: 09-22-2022 [facility] Start: 08-02-2022 End: 08-25-2023 Ct abdomen & pelvis w/contrast material CT ABD/PEL W IVCON Radiology Routine Periumbilical abdominal pain Expected: 08/02/2022, Expires: 08/25/2023 [facility] Work Phone: Comment on above: Expected: 08/02/2022 , Expires: 08/25/2023 Start: 07-07-2022 Influenza vaccination C [facility] Start: 06-28-2022 Mammography [facility] Start: 2022 Administration of varicella zoster vaccine Zoster (Shingles) Vaccine (1 of 2) [facility] Start: 2022 COVID-19 VACCINE (4 - Booster for Pfizer series) COVID-19 VACCINE (4 - Booster for Pfizer series) [facility] Start: 2022 SHINGRIX VACCINE (1 of 2) SHINGRIX VACCINE (1 of 2) [facility] Start: 2022 Zoster vaccine hzv l annika for subcutaneous use ZOSTER (SHINGLES) VACCINE (1 of 2) [facility] Start: 04-01-2022 End: 06-01-2022 CBC W Auto Differential panel - Blood CBC + DIFF Lab Routine Follow-up examination after colorectal surgery Expected: 04/01/2022, Expires: 06/01/2022 [facility] Work Phone: Comment on above: Expected: 04/01/2022 , Expires: 06/01/2022 Start: 04-01-2022 End: 06-01-2022 Comprehensive metabolic 2000 panel - Serum or Plasma COMP METABOLIC PANEL Lab Routine Follow-up examination after colorectal surgery Expected: 04/01/2022, Expires: 06/01/2022 [facility] Work Phone: Comment on above: Expected: 04/01/2022 , Expires: 06/01/2022 Start: 04-01-2022 End: 06-01-2022 TYPE AND SCREEN,30 DAY TYPE AND SCREEN,30 DAY Blood Bank Routine Follow-up examination after colorectal surgery Expected: 04/01/2022, Expires: 06/01/2022 [facility] Work Phone: Comment on above: Expected: 04/01/2022 , Expires: 06/01/2022 Start: 01-19-2022 COVID-19 VACCINE (4 - Booster for Pfizer series) COVID-19 VACCINE (4 - Booster for Pfizer series) [facility] Start: 01-19-2022 COVID-19 VACCINE (4 - Pfizer series) COVID-19 VACCINE (4 - Pfizer series) [facility] Start: 11-06-2021 DEPRESSION ASSESSMENT DEPRESSION ASS ESSMENT [facility] Start: 07-07-2021 Influenza vaccination INFLUENZA (#1) [facility] Start: 03-24-2021 Screening for malign ant neoplasm of colon COLORECTAL CANCER SCREENING DISCUSSION [facility] Start: 04-05-2020 Screening for malign ant neoplasm of breast MAMMOGRAM SCREENING DISCUSSION [facility] Start: 2017 COLOGUARD (FIT-DNA) COLOGUARD (FIT-D NA) [facility] Start: 2017 Colonoscopy COLONOSCOPY [facility] Start: 2017 COLORECTAL CANCER SCREENING COLORECTAL CANCER SCREENING [facility] Start: [address] COLONOGRAPHY [facility] Start: 2017 FECAL OCCULT BLOOD FECAL OCCULT BLOO D [facility] Start: 2017 LIPID SCREEN LIPID SCREEN [facility] Start: 2017 Screening for malign ant neoplasm of colon [facility] Start: 2017 SIGMOIDOSCOPY SIGMOIDOSCOPY [facility] Start: 2012 Lipid panel LIPID SCREENING [facility] Start: 2012 Mammography MAMMOGRAM [facility] Start: 10-11-2008 Hepatitis B vaccination HEP B VACCINE (3 of 3 - 19+ 3-dose series) [facility] Start: 10-11-2008 Hepatitis B Vaccine (3 of 3 - 19+ 3-dose series) Hepatitis B Vaccine (3 of 3 - 19+ 3-dose series) [facility] Start: 2002 HPV TESTING HPV TESTING [facility] Start: 2002 Screening for malign ant neoplasm of cervix HPV Testing [facility] Start: 1993 PAP TESTING PAP TESTING [facility] Start: 1993 Screening for malign ant neoplasm of cervix [facility] Start: 1991 Urine microalbumin profile [facility] Start: 1990 Adult BMI Follow Up Plan Adult BMI Follow Up Plan [facility] [facility] Start: 1990 ANNUAL PCP TEAM CONTRACTS INTERN ALEKSANDAR DISEASE VISIT ANNUAL PCP TEAM CHRONIC DISEASE VISIT [facility] Start: 1990 ANNUAL WELLNESS VISIT ANNUAL WELLNES S VISIT [facility] Start: 1990 Anxiety Screening Anxiety Screening [facility] Start: 1990 BP CONTROLLED (<130/80) BP CONTROLLE D (<130/80) [facility] Start: 1990 Depression Screening Depression Scre ening [facility] Start: 1990 HEPATITIS C SCREENING HEPATITIS C [facility] Start: 1990 Hepatitis C screening Hepatitis C [facility] Start: 1990 HIV SCREENING HIV SCREENING [facility] Start: 1990 HIV screening HIV Screening [facility] Start: 1987 HIV screening HIV SCREENING DISCUSSION [facility] Start: 1984 Adult depression screening assessment DEPRESSION SCREENING [facility] Start: 1984 Depression screening using PHQ-9 (Patient Health Questionnaire 9) score DEPRESSION SCREENING [facility] Start: 1978 PNEUMOCOCCAL (1 - PCV) PNEUMOCOCCAL (1 - PCV) [facility] Start: 1978 Pneumococcal vaccination Pneum ococcal Vaccine (1 - PCV) [facility] Start: 1972 HEPATITIS B (1 of 3 - 3-dose series) HEPATITIS B (1 of 3 - 3-dose series) [facility] Start: 1972 Hepatitis B Vaccine (1 of 3 - 3-dose series) Hepatitis B Vaccine (1 of 3 - 3-dose series) [facility] Start: 1972 Hepatitis C screening HEPATITI S C VIRUS SCREENING [facility] Start: 1972 HPV/COTEST HPV/COTEST [facility] Start: 1972 Screening for malign ant neoplasm of cervix [facility] 12 lead ECG EKG 12 lead ECG [facility] CT Abdomen and Pelvi s W contrast IV CT Abdomen / Pelvis With IV Contrast ONLY Imaging STAT 08/12/2023 5:42 AM [facility] End: 01-12-2024 EGD - THERAPEUTIC, EUS, OR TUBE INTERVENTIONS EGD - THERAPEUTIC, EUS, OR TUBE INTERVENTIONS Endoscopy Routine Gastroparesis 1 Occurrences starting 01/11/2023 until 01/12/2024 [facility] Work Phone: Comment on above: 1 Occurrences starti ng 01/11/2023 until 01/12/2024 FAT, FECAL QUAL FAT, FECAL QUAL Lab Routine Diarrhea due to malabsorption Ordered: 03/15/2023 [facility] Work Phone: Comment on above: Ordered: 03/15/2023 End: 10-11-2023 Gi transit & pres ravinder wireless capsule w/interp CAPSULE ENDOSCOPY SMART Endoscopy Routine Gastroparesis 1 Occurrences starting 10/11/2022 until 10/11/2023 [facility] Work Phone: Comment on above: 1 Occurrences starti ng 10/11/2022 until 10/11/2023 End: 12-17-2023 PAP TITRATION PSG (CPAP,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 IN Report to DESK J1-9 for surgery. A map is located in Your Surgical Guide Book. The online version of the surgical guide book can be found at: [email or web address] The address is [address] [place] [address] INFECTION PREVENTION Please notify your doctor if [...] Your Surgical Guide Book for more information. [facility] TEAM At the [facility], we have a multidisciplinary team of caregivers that includes fellows, residents, nurse practitioners, physician assistants, clinical nurse specialists, nurses, medical assistants, patient care nursing assistants, social workers, case checker and many others. We all have different [...] concerns. documented in this encounter [facility] 01-10-2024 History of Present illness Narrative [facility] [address] [place] [address], [address] [place] [id number] SUBJECTIVE: Patient ID (1970): Mary Leal is [...] carcinoma (BCC) of chest 04/04/2023 Bipolar disorder ([facility]) Chronic interstitial cystitis 04/06/2023 Chronic sinusitis 07/07/2022 [...] 03/20/2020 Performed by Noman Mayo MD at [facility] ENDOSCOPY EGD, DILATATION N/A 09/25/2020 Performed by Noman Mayo MD at [facility] ENDOSCOPY ENDOSCOPIC DIAGNOSTIC DRUG INDUCED SLEEP Bilateral 09/19/2023 Performed by Cullen Dawkins MD at [facility] FOOT SURGERY 06/25/2020 left foot surgery FOOT SURGERY Right 10/2022 and 05/2023 HYSTERECTOMY 2015 LASER LINGUAL TONISILLECTOMY Circumferential 07/08/2021 Performed by Alexei Avila MD PhD at [facility] MRI FOOT LEFT NECK SURGERY 2017 PLANTAR FASCIECTOMY RELEASE PHARYNGEAL SCAR CPT 14477 Circumferential 07/08/2021 Performed by Alexei Avila MD PhD at [facility] RESECTION SUBMUCOSAL NASAL Bilateral 02/11/2021 Performed by Alexei Avila MD PhD at [facility] ROTATOR CUFF REPAIR Right SEPTOPLASTY Circumferential 02/11/2021 Performed by Alexei Avila MD PhD at [facility] TONSILLECTOMY Bilateral 02/11/2021 Performed by Alexei Avila MD PhD at [facility] TOTAL COLECTOMY 03/2022 uvuloplasty N/A 02/11/2021 Performed by Alexei Avila MD PhD at [facility] Family History Problem Relation Age of Onset [...] in the morning. Indications: gastroesophageal reflux disease. exknghephph-gemxrlbpr-ygdwaxht (TRELEGY ELLIPTA) 100-62.5-25 mcg blister with device Inhale 1 puff in the morning. 60 each 5 fremanezumab-vfrm ([employer] AUTOINJECTOR) 225 mg/1.5 mL inject 1 AND [...] mg 2.5 mg nebulization PRN Gwendolyn Stroud APRN-PAINT ROLLER 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 REVIEW OF SYSTEMS: Review of Systems Data [...] this chart were generated using voice recognition [employer] dictation software. Although every effort was made to ensure the accuracy of this automated supervisor elementary education, some errors in supervisor elementary education may have occurred. Iam Siddiqi 01/10/24 0753 documented in this encounter [facility] 01-10-2024 Instructions Cullen Dawkins MD - 01/10/2024 [...] test result within 7 days, please call [phone] to leave a request for your results. [...] Ultrasound, MRI or PET scan, please call [facility] Scheduling at [phone]. If you need to be scheduled for surgery, please call Aiden Augustin Surgery Coordinator at [phone], or Lazara at [phone] or our main number [phone] if you have not received a return [...] (and medications that contain aspirin): Many non-prescription (yycq-fvk-uddpcyn or OTC) medications contain aspirin. If you are unsure whether a medication you take has aspirin, please ask your pharmacist or your surgeon's office. You must ask your surgical team if they want you to continue taking, or stop taking aspirin before your procedure. Medications containing aspirin that should be stopped 7 days before surgery: Juliet-Lenore Anacin Aspirin Fiorinal Ascriptin Carlos Bufferin Lortab ASA Darvon Ecotrin Excedrin Percodan Midol Pepto-Bismol Kahlilwin Examples of Non-Steroidal Anti-Inflammatory Drugs (NSAIDs) that [...] L-carnosine Licorice Kava kava Milk thistle Multivitamin Ozark-3 Resveratrol Skullcap [place]'s wort Vitamin E Adipex (phentermine) Glenn (orlistat) Hydroxycut Garcinia Cambogia Raspberry Ketones Vyoyblgd-I-30 should be stopped 14 days before surgery You will receive specific instructions regarding your insulin and anti-coagulant/anti-platelet medications (if applicable). documented in this encounter [facility] 12-27-2023 Miscellaneous Notes PATIENT NOTIFIED WITH SURGERY TIME OF 11:00. TOLD TO ARRIVE 2 HOURS PRIOR. documented in this encounter [facility] 12-27-2023 Telephone encounter Note PATIENT NOTIFIED WITH SURGERY TIME OF 11:00. TOLD TO ARRIVE 2 HOURS [facility]IOR. [facility] Miscellaneous Notes See MC message A [...] distance health visit in this department: 10/25/2021 Test Clerk, Nurse Next visit in this department: 01/25/2024 documented in this encounter [facility] 12-20-2023 History and physical note PRE-ADMISSION TESTING HISTORY AND PHYSICAL EXAM DATE: 12/20/23 PCP: ELICEO GÓMEZ JR, DO CHIEF COMPLAINT: CHUCKIE (obstructive sleep apnea) HISTORY OF PRESENT ILLNESS: Mary Leal, a 53 y.o. White or female, presents to [facility] for a pre-surgical H&P for a planned insertion of hypoglossal nerve stimulator. She complains of CHUCKIE. She states she was diagnosed about 5 years ago. She has been unable to tolerate the Cpap. PAST MEDICAL HISTORY: Past Medical History: Diagnosis Date ADD (attention deficit disorder) Allergic rhinitis 11/16/2015 Anxiety Asthma Atopic dermatitis 04/09/2020 Basal cell carcinoma (BCC) of chest 04/04/2023 Bipolar disorder ([facility]) Chronic interstitial cystitis 04/06/2023 Chronic sinusitis 07/07/2022 [...] 03/20/2020 Performed by Noman Mayo MD at [facility] ENDOSCOPY EGD, DILATATION N/A 09/25/2020 Performed by Noman Mayo MD at [facility] ENDOSCOPY ENDOSCOPIC DIAGNOSTIC DRUG INDUCED SLEEP Bilateral 09/19/2023 Performed by Cullen Dawkins MD at [facility] FOOT SURGERY 06/25/2020 left foot surgery FOOT SURGERY Right 10/2022 and 05/2023 HYSTERECTOMY 2015 LASER LINGUAL TONISILLECTOMY Circumferential 07/08/2021 Performed by Alexei Avila MD PhD at [facility] MRI FOOT LEFT NECK SURGERY 2017 PLANTAR FASCIECTOMY RELEASE PHARYNGEAL SCAR CPT 79733 Circumferential 07/08/2021 Performed by Alexei Avila MD PhD at [facility] RESECTION SUBMUCOSAL NASAL Bilateral 02/11/2021 Performed by Alexei Avila MD PhD at [facility] ROTATOR CUFF REPAIR Right SEPTOPLASTY Circumferential 02/11/2021 Performed by Alexei Avila MD PhD at [facility] TONSILLECTOMY Bilateral 02/11/2021 Performed by Alexei Avila MD PhD at [facility] TOTAL COLECTOMY 03/2022 uvuloplasty N/A 02/11/2021 Performed by Alexei Avila MD PhD at [facility] FAMILY HISTORY: Family History Problem Relation Age [...] Indications: gastroesophageal reflux disease., Disp: , Rfl: zedmmrwpqpu-qwjjzweff-dxfqyezg (TRELEGY ELLIPTA) 100-62.5-25 mcg blister with device, Inhale 1 puff in the morning., Disp: 60 each, Rfl: 5 fremanezumab-vfrm ([employer] AUTOINJECTOR) 225 mg/1.5 mL, inject 1 AND [...] 2.5 mg, nebulization, PRN, Gwendolyn Nicole Stroud, FINISH FILER-PAINT ROLLER 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 REVIEW OF SYSTEMS: Review of Systems Constitutional: [...] the most recent lab values available in [facility] at the time of the office visit and additional labs may have been drawn since that time. ASSESSMENT / DIAGNOSIS: CHUCKIE (obstructive sleep apnea) PLAN: Mary Leal is scheduled for Insertion Stimulator Nerve Hypoglossal - Right with Dr. Dawkins on 01/02/2024. STELLA Duron 12/20/23 1240 [facility] 12-20-2023 History and physical note PRE-ADMISSION TESTING HISTORY AND PHYSICAL EXAM DATE: 12/20/23 PCP: ELICEO GÓMEZ JR, DO CHIEF COMPLAINT: CHUCKIE (obstructive sleep apnea) HISTORY OF PRESENT ILLNESS: Mary Leal, a 53 y.o. White or female, presents to [facility] for a pre-surgical H&P for a planned insertion of hypoglossal nerve stimulator. She complains of CHUCKIE. She states she was diagnosed about 5 years ago. She has been unable to tolerate the Cpap. PAST MEDICAL HISTORY: Past Medical History: Diagnosis Date ADD (attention deficit disorder) Allergic rhinitis 11/16/2015 Anxiety Asthma Atopic dermatitis 04/09/2020 Basal cell carcinoma (BCC) of chest 04/04/2023 Bipolar disorder ([facility]) Chronic interstitial cystitis 04/06/2023 Chronic sinusitis 07/07/2022 [...] 03/20/2020 Performed by Noman Mayo MD at [facility] ENDOSCOPY EGD, DILATATION N/A 09/25/2020 Performed by Noman Mayo MD at [facility] ENDOSCOPY ENDOSCOPIC DIAGNOSTIC DRUG INDUCED SLEEP Bilateral 09/19/2023 Performed by Cullen Dawkins MD at [facility] FOOT SURGERY 06/25/2020 left foot surgery FOOT SURGERY Right 10/2022 and 05/2023 HYSTERECTOMY 2015 LASER LINGUAL TONISILLECTOMY Circumferential 07/08/2021 Performed by Alexei Avila MD PhD at [facility] MRI FOOT LEFT NECK SURGERY 2017 PLANTAR FASCIECTOMY RELEASE PHARYNGEAL SCAR CPT 53480 Circumferential 07/08/2021 Performed by Alexei Avila MD PhD at [facility] RESECTION SUBMUCOSAL NASAL Bilateral 02/11/2021 Performed by Alexei Avila MD PhD at [facility] ROTATOR CUFF REPAIR Right SEPTOPLASTY Circumferential 02/11/2021 Performed by Alexei Avila MD PhD at [facility] TONSILLECTOMY Bilateral 02/11/2021 Performed by Alexei Avila MD PhD at [facility] TOTAL COLECTOMY 03/2022 uvuloplasty N/A 02/11/2021 Performed by Alexei Avila MD PhD at [facility] FAMILY HISTORY: Family History Problem Relation Age [...] Indications: gastroesophageal reflux disease., Disp: , Rfl: fycrknqockz-rbfbiroth-dmpordjj (TRELEGY ELLIPTA) 100-62.5-25 mcg blister with device, Inhale 1 puff in the morning., Disp: 60 each, Rfl: 5 fremanezumab-vfrm ([employer] AUTOINJECTOR) 225 mg/1.5 mL, inject 1 AND [...] 2.5 mg, nebulization, PRN, Gwendolyn Nicole Stroud, FINISH FILER-PAINT ROLLER 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 REVIEW OF SYSTEMS: Review of Systems Constitutional: [...] the most recent lab values available in [facility] at the time of the office visit and additional labs may have been drawn since that time. ASSESSMENT / DIAGNOSIS: CHUCKIE (obstructive sleep apnea) PLAN: Mary Leal is scheduled for Insertion Stimulator Nerve Hypoglossal - Right with Dr. Dawkins on 01/02/2024. STELLA Duron 12/20/23 1240 documented in this encounter [facility] 12-20-2023 Instructions Earlene Whalen RN - 12/20/2023 11:45 AM EST Your surgery/procedure is scheduled at [facility] on 01/02/2024 Arrival Time Surgeon will call [facility] Address: [address] [place] [address], [address] [place] [address] in the Emergency Center Parking lot. Report to the front desk assistant in the Emergency/Surgery Registration lobby of the hospital. Please call Pre-Admission Clinic at [phone] if you have any questions prior to surgery. For questions the morning of surgery, please call the Pre-op Department at [phone]. Notify your SURGEON if you develop any [...] would like to schedule therapy at a [facility] facility, please call [phone] ([phone]). Do not use lotions, creams, powders, perfume, make up, cologne or after-shaves day of surgery. Remove ALL jewelry including wedding rings, body piercings, hair extensions that contain metal, nail comoran, make-up, and contact lens. You may brush your teeth the morning of surgery, but do not swallow the water. Wear your dentures and partial plates to the hospital (no adhesive). Shower the night the before. If applicable, use the CHG (chlorhexidine gluconate) soap or wipes. Please be advised, [facility] has transitioned to a cashless payment system. [...] RIGHTS AND RESPONSIBILITIES As a patient at [facility], you have the right to: Receive medical care and be informed of who is taking care of you Be treated with dignity and respect Have a family member/healthcare representative of choice and your physician notified of your admission Receive information and actively participate in decisions about your care and treatment Refuse care, treatment and services Decide who may provide your support and speak for you Access mormonism and spiritual services Participate in ethical issues [...] of hospital charges and payment methods Patient/patient healthcare representative responsibilities are to: Provide information about [...] in clean clothes. documented in this encounter [employer] 11-21-2023 Note HNO ID: [id number] Author: APM WANG MD Service: ? Author Type: Physician [...] personal performance and is accurate and complete. [facility] 11-08-2023 Miscellaneous Notes NURTEC PENDING WITH TEJADA [id number] documented in this encounter [facility] 11-08-2023 Telephone encounter Note NURTEC PENDING WITH TEJADA [id number] [facility] 10-12-2023 Note Patient emailed stat ing she is finding another provider and will no longer be seen at this clinic. [facility] 10-12-2023 Note HNO ID: [id number] Author: Pam Wang MD Service: ? Author [...] Video-assisted cystourethroscopy was performed using a 19 Romansh 70 and 30 degree rigid cystoscope with [...] PLAN: See progress note from today [facility] 10-10-2023 Note HNO ID: [id number] Author: Pam Wang MD Service: ? Author [...] PFSH obtained by others. Pam Wang MD Vp Strategic Partnerships offered: Patient declines. OBJECTIVE: BP 102/60 General: [...] would like to move forward with PNE. Zettics packet given to patient today to review. [...] which included preparing to see the patient, qttm-md-xzml patient care, completing clinical documentation, obtaining and/or reviewing separately obtained history, performing a medically appropriate examination, counseling and educating the patient/family/caregiver, and communicating with other HCP (more content not included)... [facility] 10-02-2023 Miscellaneous Notes Patient was called to find out if there was another pharmacy to send her medication for Diflucan. Patient stated to disregard this medication. Patient stated that she does not need this medication now and that she will be visiting her PCP tomorrow (10/03/23) to address her sickness that she had before going to [place]. She states that she was going to [...] 150 MG TABLET MEREDITH: 09/27/2023 Doris Arias APRN.PAINT ROLLER 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 ([facility]) ASSESSMENT: Mary Leal is a 53 [...] Wang documented in this encounter [facility] 09-27-2023 Note HNO ID: [id number] Author: Doris Arias APRN.PAINT ROLLER 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 Service: ? Author Type: Nurse Practitioner Type: [...] ache and some malodorous urine. Patient in [place], unable to come in for visit. Has [...] urination is normal and pressure with urinating INSURANCE FOLLOW UP SPECIALIST: denies abnormal vaginal bleeding, no vaginal discharge [...] - Low Doris Arias APRN.[facility] 09-27-2023 Miscellaneous Notes Scheduled 10/10/23 for [...] which included preparing to see the patient, nzps-gd-fdgw patient care, completing clinical documentation, obtaining and/or [...] call to schedule cystoscopy. Urogynecology [facility] Main provided: Pam Wang Staff Physician, Department of Urogynecology and Pelvic Floor Disorders Worsening frequency and urgency of urination. Is a urine culture indicated? Please review/advise Lex Vieyra RN documented in this encounter [facility] 09-19-2023 Note Patient states she m istook this medication and has been off for 7 days. Restarting it at the 25mg dose. [facility] 09-11-2023 Note HNO ID: [id number] Author: Jairon Lai MD Service: ? Author Type: Physician Type: Progress Notes Filed: 09/11/2023 1:18 PM Note Text: [facility] [...] void lower flow Jairon Lai MD [facility] 09-11-2023 Note HNO ID: [id number] Author: Phil Beckford MD Service: ? Author [...] sling incision +/- discussion of [facility] 09-01-2023 Note Spoke with patient. Canceling valium script. Increasing ativan dose to bid with current bottle for mgmt of anxiety. Appoitment on Saturday 09/08 - she will bring in ativan to count tablets. She states she has 20 left as of today. She should have 4 left at that appointment. [facility] 09-01-2023 Note Mary has been hav [...] disponing Ativan at pharmacy in order to pickle solution maker 1 weeks worth of Valium 5mg bid #16, to get her to her next appointment on 09/08. [facility] 08-23-2023 Note Psych Progress Note Time In: 925 Time Out: 940 HPI Present at Visit: basia Hernandez, [employer] student Location of Service: Office Review of Systems Constitutional: Negative. Respiratory: Negative. Cardiovascular: Negative. Psychiatric/Behavioral: dysphoric mood, irritability, insomnia Date of Telehealth Visit: 08/23/23 Chief Complaint Patient presents with Telehealth Audio/video Visit [email or web address] The patient was notified that using 3rd libertarian telecommunication application (e.g., [employer]) is not HIPPA compliant and may carry some privacy risks. Yes The visit was conducted ffrv-dp-dvce with the use of audio and video technology [employer] between patient and provider for a virtual [...] CPAP/ Insp (more content not included)... [facility] 08-21-2023 Note Est [facility] 08-12-2023 Emergency department Note Discharge, follow up, referral, and prescription information reviewed and explained; all questions and concerns addressed. Patient A/Ox3 in NAD, resp. easy unlabored upon discharge, escorted to exit by staff. [facility] 08-12-2023 Emergency department Note Discharge, [...] gastroparesis, gastroenteritis, acute cholecystitis, pancreatitis, less likely SD The patient's initial and delta troponin are negative. EKG does not demonstrate any ischemic changes. Low suspicion for SD. Her urinalysis is negative for UTI. Urine [...] follow-up. She was instructed to call her implementation architect and PCP to schedule follow-up appointments. She was instructed to return to the emergency department if she has any new or worsening symptoms. Patient agreeable plan of care. Return precautions discussed at bedside. Spoke with Dr. Salmon regarding patient. Physician to complete their own physical exam and evaluation. Collaboration performed between this CASHIER OFFICE and physician regarding patient's plan of care. [...] following orders were created for panel order [place] Draw. Procedure Abnormality Status --------- ------ Gold Top[[id number]] Final result LIGHT BLUE TOP[[id number]] Final result Dark Green Top[[id number]] Final result Please view results for these tests on the individual orders. GOLD TOP LIGHT BLUE TOP DARK GREEN TOP TROPONIN I Records reviewed: Urogynecology telemedicine visit 08/07/2023 ENT visit 07/11/2023 Family medicine visit 07/06/2023 Lev Ritter APRN CNP 08/12/23 0723 Emily at bedside Ambulates to triage with C/O sudden epigastric gnawing, burning pain that woke her from sleep. Also reports wheezing. States nausea. Denies fever. Alert. Respirations easy and unlabored. Skin PWD. NAD noted. documented in this encounter [facility] 08-12-2023 Hospital Discharge instructions Lev Ritter [...] cannot be sent through Care Everywhere.Abdominal Pain ([place] Citizen)documented in this encounter [facility] 08-12-2023 Emergency department Note Report to Les GAMBINO [facility] 08-12-2023 Physician Emergency department Note Images [...] gastroparesis, gastroenteritis, acute cholecystitis, pancreatitis, less likely SD The patient's initial and delta troponin are negative. EKG does not demonstrate any ischemic changes. Low suspicion for SD. Her urinalysis is negative for UTI. Urine [...] follow-up. She was instructed to call her implementation architect and PCP to schedule follow-up appointments. She was instructed to return to the emergency department if she has any new or worsening symptoms. Patient agreeable plan of care. Return precautions discussed at bedside. Spoke with Dr. Salmon regarding patient. Physician to complete their own physical exam and evaluation. Collaboration performed between this CASHIER OFFICE and physician regarding patient's plan of care. [...] following orders were created for panel order [place] Draw. Procedure Abnormality Status --------- ------ Gold Top[[id number]] Final result LIGHT BLUE TOP[[id number]] Final result Dark Green Top[[id number]] Final result Please view results for these tests on the individual orders. GOLD TOP LIGHT BLUE TOP DARK GREEN TOP TROPONIN I Records reviewed: Urogynecology telemedicine visit 08/07/2023 ENT visit 07/11/2023 Family medicine visit 07/06/2023 Lev Ritter APRN CNP 08/12/23722 [facility] 08-12-2023 Emergency department Note Emily at bedside [facility] 08-12-2023 Emergency department Triage note Ambulates to triage with C/O sudden epigastric gnawing, burning pain that woke her from sleep. Also reports wheezing. States nausea. Denies fever. Alert. Respirations easy and unlabored. Skin PWD. NAD noted. [facility] 08-07-2023 Note HNO ID: [id number] Author: Pam Wang MD Service: ? Author Type: Physician Type: Progress Notes Filed: 08/07/2023 3:46 PM Note Text: Virtual Female Pelvic Medicine AND Reconstructive Surgery Follow-Up TeleHealth - Follow-up Consultation Visit I have discussed the risks, benefits, and limitations of receiving care virtually with the patient. The patient expresses understanding and is willing to move forward. Mary Lael is a 53 year old female, who [...] no Pain: no Abnormal Vaginal Discharge: no INSURANCE FOLLOW UP SPECIALIST 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 She has no history of an abnormal mammogram with cysts on US LMP: No LMP recorded. Patient has had a hysterectomy.; Menopause 3 years ago; hysterectomy in 2015: Menstrual history: NA; Deliveries: I have confirmed and edited as necessary, the PFSH obtained by others. Pam Wang MD Vp Strategic Partnerships offered: Patient declines. OBJECTIVE (Virtual) There were [...] which included preparing to see the patient, lfhh-vb-xnxx patient care, completing clinical documentation, obtaining and/or reviewing separately obtained history, counseling and educating the patient/family/caregiver, ordering medications, tests, or procedures, and communicating with other HCPs (not separately reported). Pam Wang MD [facility] 07-31-2023 Note HNO ID: [id number] Author: Nelsy Chávez APRN.PAINT ROLLER 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 Service: ? Author Type: Nurse Practitioner Type: [...] new Pain: no Abnormal Vaginal Discharge: no INSURANCE FOLLOW UP SPECIALIST 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 She has no history of an abnormal mammogram with cysts on US LMP: No LMP recorded. Patient has had a hysterectomy.; Menopause 3 years ago; hysterectomy in 2015: Menstrual history: NA; Deliveries: I have confirmed and edited as necessary, the PFSH obtained by others. Nelsy Chávez APRN.PAINT ROLLER 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 Vp Strategic Partnerships offered: Patient declines. OBJECTIVE: There were no [...] for now d/t side effects Nelsy Chávez APRN.PAINT ROLLER 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 I spent a total of 45 minutes on the date of the service which included preparing to see the patient, uxpv-zt-brua patient care, completing clinical documentation, performing a medically appropriate examination, counseling and educating the patient/family/caregiver and ordering medications, tests, or procedures. [facility] 07-31-2023 History of Present illness Narrative [...] new Pain: no Abnormal Vaginal Discharge: no INSURANCE FOLLOW UP SPECIALIST 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 She has no history of an abnormal mammogram with cysts on US LMP: No LMP recorded. Patient has had a hysterectomy.; Menopause 3 years ago; hysterectomy in 2015: Menstrual history: NA; Deliveries: I have confirmed and edited as necessary, the PFSH obtained by others. Nelsy Chávez APRN.PAINT ROLLER 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 Vp Strategic Partnerships offered: Patient declines. OBJECTIVE: There were no [...] which included preparing to see the patient, euqd-mx-orxk patient care, completing clinical documentation, performing a medically appropriate examination, counseling and educating the patient/family/caregiver and ordering medications, tests, or procedures. documented in this encounter [facility] 04-26-2023 Evaluation note Encounter Date Diagnosis [...] Above note written by Wanda Yang LPN, Track Watchman. Edited and approved by Dr. Beto Snyder MD. [employer] Other 06-06-2023 Miscellaneous Notes* Telephone Encounter - Serenity Joseph MA - 04/11/2023 10:19 AM EDT MEREDITH=10/11/22 Spoke with patient she does need a refill Medication pended please file Rx request if appropriate Patient and pharmacy verified [facility] Miscellaneous Notes* Telephone Encounter - Regina Philippe - 03/20/2023 2:50 PM EDT Should patient follow up via virtual visit to discuss further? * Telephone Encounter - Steffi Ross LPN - 03/20/2023 10:20 AM EDT Patient's stool tests came back normal. Steffi Ross LPN documented in this [facility]Mer[facility]-2023 NotePROCEDURE: XR ANKLE RT MIN 3 [...] Electronically authenticated by: ZAIDA ACOSTA Date: 2023-02-21 10:15[facility]04-18-2023 NotePROCEDURE: XR ANKLE RT MIN [...] Electronically authenticated by: ZAIDA ACOSTA Date: 2023-02-21 10:15[facility]03-28-2023 NotePROCEDURE: XR FOOT RT MIN 3 [...] Electronically authenticated by: ZAIDA ACOSTA Date: 2023-01-31 11:55[facility]03-16-2023 Miscellaneous Notes* Telephone Encounter - Jennie Moreno RN - 01/19/2023 2:17 PM EDT Please review and advise patient. documented in this encounterMer[facility]03-[facility]-2023 Miscellaneous Notes* Telephone Encounter - Mounika Roberto PA-C - 01/16/2023 1:08 PM EDT Patient was scheduled for virtual PACC appt at 1300 today. Patient did not check in for visit. Called patient at [phone] to see if they needed any assistance logging in and left voicemail. This message routed to PACC schedulers to contact patient to reschedule PACC appt. Mounika Roberto PA-C January 16, 2023 1:09 PM documented in this encounterMer[facility]23 History and physical note * Mounika Roberto PA-C - 01/16/2023 1:00 PM EDT This is a virtual visit using [employer] video visit. It required patient-provider interaction for themedical decision making as documented below. I have communicated my name and active licensure. The patient's identity and physical location wereverified at the time of this visit. Either the patient or their legal healthcare representative has been informed of the risks and benefits of and alternatives to treatment through a remote evaluation and consents to proceed with the evaluation remotely. Surgeon: Winston Hannah DO Type of surgery: GEN SURG: POP Patient scheduled for surgery on 02/08/23 . Surgery Location: [facility] Diagnosis: Preop examination (primary encounter diagnosis) [...] in the AM and 4 mg PM yghhlganxcz-kpaifjkxt-gdfliayw (TRELEGY ELLIPTA) 100-62.5-25 mcg Inhale 1 Puff [...] 12:36 PM documented in this encounterMer[facility]03-[facility]-2023 Instructions* Patient Instructions* Mounika Roberto PA-C - 01/16/2023 12:38 PM EDT PATIENT PREOPERATIVE INSTRUCTIONS Winston Hannah DO has scheduled you for your procedure at this surgery center: [facility]: [phone] -- [place] [address]. Please read below carefully for your personalized [...] Procedures: - YOU MUST HAVE A RESPONSIBLE SPACE SCIENCES DIRECTOR TAKE YOU HOME. A PACKAGING MECHANIC OR FRONT CLERK CANNOT BE MADE A RESPONSIBLE SPACE SCIENCES DIRECTOR. - We recommend that a responsible person [...] Advance Directive, please fax a copy to [phone] or email to for it to be [...] Roberto PA-C documented in this encounterMer[facility]03-[facility]-2023 Miscellaneous Notes* Telephone Encounter - Berta Ann RN - 01/11/2023 9:47 AM EST Procedure pended for 02/08/23. Pt aware of need for PACC. Pre-op instructions reviewed, will send to pt's [facility], per pt request. Postop appt scheduled. No other questions at this time. Berta HENSON, RN Specialty Hydroelectric Production Technician documented in this encounterMer[facility]03-07-[facility] History of Present illness Narrative* Winston Hannah DO - 01/10/2023 9:09 AM EST Images from the original note were not included. [facility] [place] Gastroparesis/Dysmotility Follow Up This encounter was provided [...] of care. NAME: Mary Leal CLINIC NO: [id number] CHIEF COMPLAINT Idiopathic Gastroparesis HISTORY OF PRESENT [...] Normal gastric transit Normal small bowel transit [id number] transit in the distal bowel consistent delay [...] (FLONASE) 50 mcg/actuation nasal spray Use 1 [place] in each nostril once daily. carBAMazepine XR [...] THE LUNGS every 4 hours if needed wgjttcvowmy-slnktocvl-ilkeszxj (TRELEGY ELLIPTA) 100-62.5-25 mcg Inhale 1 Puff [...] dialysis. No history of symptoms or problems. INSURANCE FOLLOW UP SPECIALIST: Negative for abnormal vaginal bleeding, abnormal vaginal [...] of care. documented in this encounterMer[facility]02-23-2023 Miscellaneous Notes* Addendum Note - Yoni Tuttle MD - 12/29/2022 3:37 PM ESTAddended by: YONI TUTTLE MD on: 12/29/2022 03:37 PM Modules accepted: Orders documented in this encounterMercy [facility]02-20-2023 History of Present illness Narrative* RT [...] 3:17 PM documented in this encounterMercy [facility]02-17-2023 Miscellaneous Notes* Telephone Encounter - Erica Serrano RN - 12/23/2022 4:36 PM EST Message being addressed in another encounter that was forwarded to provider documented in this encounterMercy [facility]02-16-2023 History of Present illness Narrative* Winston Hannah, DO - 12/22/2022 8:52 AM EST Images from the original note were not included. [facility] [place] Gastroparesis/Dysmotility Follow Up This encounter was provided [...] completed esophagram NAME: Mary Leal CLINIC NO: [id number] CHIEF COMPLAINT Idiopathic Gastroparesis HISTORY OF PRESENT [...] chicken spaghetti etc. Duration of symptoms (months): 1485-4854 Weight changes in last 3 months: Stable [...] Normal gastric transit Normal small bowel transit [id number] transit in the distal bowel consistent delay [...] TONSILLECTOMY HX 07/2021 revision VAGINAL HYSTERECTOMY 2014 [facility] 10/2015 for endometriosis, has remaining both [...] (FLONASE) 50 mcg/actuation nasal spray Use 1 Leola in each nostril once daily. carBAMazepine XR [...] THE LUNGS every 4 hours if needed krzwnizanvu-odqwwmrqg-chjpozqk (TRELEGY ELLIPTA) 100-62.5-25 mcg Inhale 1 Puff [...] dialysis. No history of symptoms or problems. INSURANCE FOLLOW UP SPECIALIST: Negative for abnormal vaginal bleeding, abnormal vaginal [...] of care. documented in this encounterMercy [facility]02-15-2023 NotePROCEDURE: XR FOOT RT MIN 3 [...] Electronically authenticated by: ZAIDA ACOSTA Date: 2022-12-21 12:24[facility]02-[facility] History of Present illness Narrative* Mary [...] in the AM and 4 mg PM gyrmrkiquzg-chczaqbjj-gskpbqfx (TRELEGY ELLIPTA) 100-62.5-25 mcg Inhale 1 Puff [...] which included preparing to see the patient, mwql-xs-bezy patient care, completing clinical documentation, obtaining and/or reviewing separately obtained history, counseling and educating the patient/family/caregiver, ordering medications, quincy ts, or procedures, communicating with other HCPs (not separately reported), independently interpreting results (not separately reported), communicating results to the patient/family/caregiver, and care coordination (not separately reported). Mary Obrien MD Colorectal Surgery documented in this encounterMercy Health Defiance Hospital02-08-2023 Miscellaneous Notes* Telephone Encounter - Emily Benton RN - 12/14/2022 5:19 PM EST Several attempts to reach pt unsuccessful - MC sent. * Telephone Encounter - Barber Marie - 12/02/2022 8:39 AM EST SLEEP PHONE Name of caller: Mary Leal Relationship to patient : Self In-state or eir-gj-oqpeq patient: In-State Was permission obtained from patient? Yes Patient identified by Name and Date of . ( Mary Leal, 1970). Yes Reason for Call : Patient said her and Emily was chatting through my chart and Emily calledher about 5:15 yesterday. Number to return call [phone] Okay to leave a message ? Yes Last office visit 10/14/[address] Kusum vines Next office visit 01/13/[address] Tuttle virtual documented in this encounterMercy Health Defiance Hospital02-06-2023 Miscellaneous Notes* Telephone Encounter - Jet [...] and follow up testing return call to [phone] documented in this encounterMercy Health Defiance Hospital02-03-2023 Miscellaneous Notes* Telephone Encounter - JAHAIRA [...] patient Summary: As noted Concerns: Procedure results Hydroelectric Production Technician plan for next outreach: Will follow up Signature Nelsy Gilmore RN December 08, 2022 documented in this encounterMercy Health Defiance Hospital01-30-2023 Nurse Note* Lisa Contreras RN - 12/05/2022 1:05 PM EST [facility] ENDOSCOPY PRE PROCEDURE CALL Akiko. I'm calling from [facility] endoscopy to provide you with the information for your surgery/procedure tomorrow. 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 tbd What is the best number for your special education bus driver to be reached at tomorrow for updates? tbd Your special education bus driver is allowed to wait here with [...] Do not wear makeup, lotion, or finger comoran. yes Patient instructed: Please bring a list [...] given Any barriers to Patient learning (confusion? Slot Service Specialist needed?): Patient/Patient Try On Baster responded appropriately on phone. If patient needs to reschedule please call: [phone] [facility] phone number: [phone] Type of instruction given: Verbal by telephone contact. documented in this encounterMercy Health Defiance Hospital01-27-2023 Nurse Note* Isra Harman RN - 12/02/2022 10:48 AM EST [facility] ENDOSCOPY PRE PROCEDURE CALL Akiko. I'm calling from [facility] endoscopy to provide you with the information for your surgery/procedure tomorrow. 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 Rich What is the best number for your special education bus driver to be reached at tomorrow for updates? [phone] Your special education bus driver is allowed to wait here with [...] must be done on Monday.) Did you pickle solution maker your bowel prep pt calling office for [...] Do not wear makeup, lotion, or finger comoran. yes Patient instructed: Please bring a list [...] given Any barriers to Patient learning (confusion? Slot Service Specialist needed?): Patient/Patient Try On Baster responded appropriately on phone. If patient needs to reschedule please call: [phone] [facility] phone number: [phone] Type of instruction given: Verbal by telephone contact. documented in this encounterMercy Health Defiance Hospital01-26-2023 NotePROCEDURE: XR FOOT RT MIN 3 [...] Electronically authenticated by: ZAIDA ACOSTA Date: 2022-12-01 11:42[facility]01-26-2023 NotePROCEDURE: XR FOOT RT MIN [...] Electronically authenticated by: ZAIDA ACOSTA Date: 2022-12-01 11:42[facility]01-25-[facility]23 History of Present illness Narrative* Isra [...] in the AM and 4 mg PM uwmrkkzipfl-rvctasgfm-ihsshptf (TRELEGY ELLIPTA) 100-62.5-25 mcg Inhale 1 Puff [...] no edema RESPIRATORY: No dyspnea : neg INSURANCE FOLLOW UP SPECIALIST: neg The remainder of the review of [...] DO 11/30/2022 documented in this encounterMercy Health Defiance Hospital01-19-2023 Miscellaneous Notes* Telephone Encounter - Erica Serrano RN - 11/24/2022 3:20 PM EST This concern was addressed in the phone encounter on 11/24/22. Patient was called back and informed [facility] will complete Prior Authorization for her sleep study. documented in this encounterMercy Health Defiance Hospital01-19-2023 Miscellaneous Notes* Telephone Encounter - Erica [...] Relationship to patient : Self In-state or ptt-ho-eqjyk patient: In-State Was permission obtained from patient? Yes Patient identified by Name and Date of . ( Mary Leal, 1970). Yes Reason for Call : Patient stated she spoke to her insurance and they told her that the provider need to call [place] to see if a PA is needed for the PAP Titration. Number to return call [phone] Okay to leave a message ? Yes Last office visit 10/14/[address] Tuttle virtual Next office visit None documented in this encounterMercy Health Defiance Hospital01-19-2023 History of Present illness Narrative* Isra Masters DO - 11/24/2022 8:29 AM EST Images from the original note were not included. EQOll Test Report - [id number] Test start date: 11/17/2022 10:03 AM Ribbon Cutter: josephine Interpretation date: 11/24/2022 Ordering physician: Isra Masters DO Referring physician: Patient Information Name: ElvisMary ID: [id number] date: 1970 Height ft. in.: 5' 4 [...] Normal gastric transit Normal small bowel transit [id number] transit in the distal bowel consistent delay post anastomosis Signature _Dr. Masters Date _11/24/2022 documented in this encounterMercy Health Defiance Hospital01-17-2023 Miscellaneous Notes* Telephone Encounter - Regina Philippe - 11/22/2022 3:37 PM EST Patient calling to verify that Smart Pill monitor was received at [facility]. Monitor was sent via [employer] on 11/19/22. Patient is requesting a confirmation. documented in this encounterMercy Health Defiance Hospital01-16-2023 Miscellaneous Notes* Telephone Encounter - Erica Serrano RN - 11/21/2022 9:11 AM EST CureLauncher message sent to patient. Prior Sleep study forwarded to MD to review, Order pended for PAP-titration for provider to review and sign if necessary. documented in this encounterMercy Health Defiance Hospital01-16-2023 History and physical note * Yodit Back PA-C - 11/21/2022 8:00 AM EST PREANESTHESIA CONSULT CLINIC TELEHEALTH VISIT Patient has been identified by name and date of : Yes This is a virtual visit using CureLauncher video visit. It require patient-provider interaction for [...] in the AM and 4 mg PM rmkrubrdqre-inftqrymz-ltnnusmj (TRELEGY ELLIPTA) 100-62.5-25 mcg Inhale 1 Puff as instructed once daily. No current facility-administered medications for this visit. COVID VACCINATION STATUS: Fully vaccinated REVIEW OF SYSTEMS: Pain Assessment: General: No weight loss, malaise or fevers. Neuro: No history of TIA's, stroke, COOK DINNER tumor, impaired sensorium, hemiplegia, paraplegia or quadraplegia. [...] requiring medication, no history of angina, CHF, SD, cardiac surgery or stents. Denies rest pain, gangrene or revascularization/amputation for PVD. No history of cardiovascular symptoms or problems. + HLD GI: See HPI : No history of dysuria, frequency or incontinence,, stones or chronic kidney disease INSURANCE FOLLOW UP SPECIALIST: Negative for abnormal vaginal bleeding, abnormal vaginal [...] PAGER/CONTACT #: documented in this encounterMercy Health Defiance Hospital01-12-2023 Miscellaneous Notes* Addendum Note - Yoni [...] PSG results. * Telephone Encounter - Barber PatelTeganJuan - 11/02/2022 12:33 PM EST Received from [facility] Report via fax. 8 pages indexed to chart. documented in this encounterMercy Health Defiance Hospital01-12-2023 History of Present illness Narrative* Annmarie [...] complete. You will be wearing a Data Weight Loss Physician around your neck like a necklace during the test. You must keepthis near you at all times. The Data Weight Loss Physician has an EVENT button. You will be [...] is inside your body. Return the Data Weight Loss Physician to the [facility] after your test is completed. Brittanie Gillespie RN documented in this encounterMercy Health Defiance Hospital01-09-2023 NotePROCEDURE: XR FOOT RT MIN 3 [...] authenticated by: ZAIDA ACOSTA Date: 2022-11-14 10:39[facility] HospitalHcqtbzbf60-31-2399 NotePROCEDURE: XR FOOT RT MIN 3 VIEWS [...] authenticated by: NICKI DACOSTA Date: 2022-11-10 11:44[facility] HospitalVpcbeyxy46-80-1356 Miscellaneous Notes* Telephone Encounter - Annmarie Gillespie RN - 11/10/2022 9:07 AM EST Telephoned patient with SmartPill procedure appointment reminder/instructions. Brittanie Gillespie RN documented in this encounterMercy Health Defiance Hospital01-04-2023 Miscellaneous Notes* Telephone Encounter - Regina [...] it legit. documented in this encounterMercy Health Defiance Hospital01-04-2023 Miscellaneous Notes* Telephone Encounter - Wali Doll - 11/09/2022 9:47 AM EST SENT PATIENTS RX TO PREFERRED LOCATION [facility] [phone] Wali Doll CMA documented in this encounterMercy Health Defiance Hospital01-03-2023 Miscellaneous Notes* Telephone Encounter - Regina Philippe - 11/08/2022 11:15 AM EST Per Soumya in provider services at [facility]. No prior auth is needed,coverage is active, patient can proceed with Smart Pill. Placed a new referral. Call Ref # [id number] * Telephone Encounter - Regina Philippe - 11/02/2022 3:51 PM EST Spoke with patient. Smart Pill is a covered benefit. Sent email to Smart Pill in [facility] [employer] and [facility] to assist in scheduling Smart Pill in November. * Telephone Encounter - JAHAIRA Rosales - 11/01/2022 5:01 PM EST Images from the original note were not included. Broko Buck Pss You 11 minutes ago (4:49 PM) [...] procedure, she can call Earlene Martin at [phone]. documented in this encounterMercy Health Defiance Hospital12-19-2022 Miscellaneous Notes* Telephone Encounter - Steffi [...] Martinez - 10/24/2022 9:52 AM EST Mary eLal is calling Isra Masters DO today with concern regarding her smart pill patient stated she has been calling and there has not been a response patient would like to know what would Dr. Masters like her to do so she can get scheduled with them please advise. Patient has been identified by name and birthdate. Person calling: self Call patient at: at home [phone] (home) [phone] (cell) Closing statement: Symptom Call: Thank you for calling [facility], your call is very important. A nurse will call in approximately 2-4 hours during business hours. If this is an emergency, please contact 911. Nati Martinez documented in this encounterMercy Health Defiance Hospital12-13-2022 Miscellaneous Notes* Telephone Encounter - Brooklyn Valle LPN - 10/18/2022 2:43 PM EST Requested Prescriptions Pending Prescriptions Disp Refills Dexlansoprazole 60 mg CpDM [Pharmacy Med Name: DEXLANSOPRAZOLE DR 60 MG CAP] 30 capsule 5 Sig: take 1 capsule by mouth before breakfast Patient last seen 10/11/2022 documented in this encounterMercy Health Defiance Hospital12-12-2022 NotePROCEDURE: XR FOOT RT MIN 3 [...] Electronically authenticated by: NICKI DACOSTA Date: 2022-10-17 18:06[facility]12-12-2022 NotePROCEDURE: XR FOOT RT MIN [...] Electronically authenticated by: NICKI DACOSTA Date: 2022-10-17 18:06[facility]12-12-2022 Miscellaneous Notes* Telephone Encounter - Wali Doll - 10/17/2022 9:17 AM EST Faxed order, office notes, demographics, and sleep study to: SAIMA name: [facility] fax: [phone] [facility] ph: ALSO SENT A REQUEST FOR PTS PSG FROM [facility] IN [place] documented in this encounterMercy Health Defiance Hospital12-06-2022 History of Present illness Narrative* Isra [...] (FLONASE) 50 mcg/actuation nasal spray Use 1 Leola in each nostril once daily. carBAMazepine XR (TEGRETOL XR) 400 mg 12 hr tablet Take 400 mg by mouth q 12 HR. ARIPiprazole (ABILIFY) 30 mg tablet Take 30 mg by mouth once daily. albuterol HFA (PROVENTIL HFA, VENTOLIN HFA) 90 mcg/actuation inhaler inhale 2 puffs by mouth INTO THE LUNGS every 4 hours if needed gcdngndpxln-oalijdhtg-lmpyiefc (TRELEGY ELLIPTA) 100-62.5-25 mcg Inhale 1 Puff [...] no edema RESPIRATORY: No dyspnea : neg INSURANCE FOLLOW UP SPECIALIST: neg The remainder of the review of [...] DO 10/11/2022 documented in this encounterMercy Health Defiance Hospital12-05-2022 Evaluation note* Encounter Date Diagnosis Assessment [...] for rotator cuff healing or recurrent tear [facility] Other 12-01-2022 Evaluation note* Encounter Date Diagnosis [...] note writ ten by Wanda Yang LPN, Track Watchman. Edited and approved by Dr. Beto Snyder MD. [facility] Other 11-17-2022 Evaluation note* Encounter Date Diagnosis [...] regarding the risks and benefits of terminal gauger opioid use. She understands the associated risks [...] note writ ten by Lupillo Amezquita MA, Track Watchman. Edited and approved by Dr. Beto Snyder MD. [facility] Other 11-17-2022 Evaluation note* Encounter Date Diagnosis Assessment Notes Treatment Notes Treatment Clinical Notes Sep, Lumbosacral spondylosis without myelopathy (ICD-10 - M47.817) [facility] Other 11-09-2022 Evaluation note* Encounter Date Diagnosis [...] note writ ten by Wanda Yang LPN, Track Watchman. Edited and approved by Dr. Beto Snyder MD. [facility] Other 09-21-2022 NotePROCEDURE: XR ANKLE RT MIN 3 VIEWS, XR FOOT RT MIN 3 VIEWS COMPARISON: 01/06/2021 HISTORY: Pain of right ankle joint FINDINGS: BONES:Remote osteotomy head of the first metatarsal fixed with a single screw. No acute fracture or dislocation. SOFT TISSUES:Negative. No visible soft tissue swelling. EFFUSION:None visible. OTHER: Negative. IMPRESSION: No acute abnormality Electronically authenticated by: NICKI DACOSTA Date: 2022-07-27 19:[address] [place], [place] 7126809-21-2022 NotePROCEDURE: XR ANKLE RT MIN 3 VIEWS, XR FOOT RT MIN 3 VIEWS COMPARISON: 01/06/2021 HISTORY: Pain of right ankle joint FINDINGS: BONES:Remote osteotomy head of the first metatarsal fixed with a single screw. No acute fracture or dislocation. SOFT TISSUES:Negative. No visible soft tissue swelling. EFFUSION:None visible. OTHER: Negative. IMPRESSION: No acute abnormality Electronically authenticated by: NICKI DACOSTA Date: 2022-07-27 19:[facility]09-20-2022 Miscellaneous Notes* Telephone Encounter - Silvia Ybarra - 07/26/2022 2:56 PM EDT PA for Dexlansoprazole initiated electronically. Awaiting response [employer] ID# [id number] * Telephone Encounter - Tracy Khan PSS - 07/26/2022 1:43 PM EDT Patient needs a prior authorization Medication Order name: Dexlansoprazole 60 mg CpDM Medication: DEXLANSOPRAZOLE 60 MG CAPSULE,BIPHASE DELAYED RELEASE [[id number]] Dispense as Written: No documented in this encounterMercy Health Defiance Hospital09-20-2022 History of Present illness Narrative* Mary [...] in the AM and 4 mg PM yyfjezykytx-mecfxkndv-yppvlxrr (TRELEGY ELLIPTA) 100-62.5-25 mcg Inhale 1 Puff [...] (FLONASE) 50 mcg/actuation nasal spray Use 1 Leola in each nostril once daily. carBAMazepine XR [...] which included preparing to see the patient, hmpg-td-pkbr patient care, completing clinical documentation, obtaining and/or reviewing separately obtained history, performing a medically appropriate examination, counseling and educating the pat ient/family/caregiver, ordering medications, tests, or procedures, and care coordination (not separately reported). Mary Obrien MD Colorectal Surgery documented in this encounterMercy Health Defiance Hospital09-20-2022 Nurse Note* Re Sierra MA - [...] Drains: No documented in this encounterMercy Health Defiance Hospital08-04-2022 NotePROCEDURE: In the coronal projection, without [...] and signed by Quinton Carson on 06/09/2022 111[address]08-02-2022 Miscellaneous Notes* Telephone Encounter - Raquel Sebas - 06/07/2022 3:34 PM EDT Patient needs RX sent to [facility] in [facility]. The previous was sent to [...] Prescription(s) as above. Please process accordingly. Raquel Sebas documented in this encounterMercy Health Defiance Hospital07-21-2022 Evaluation note* Encounter Date Diagnosis Assessment [...] note writ ten by Lupillo Amezquita MA, Track Watchman. Edited and approved by Dr. Beto Snyder MD. [facility] Other 07-05-2022 Evaluation note* Encounter Date Diagnosis [...] writing by [facility] document. [facility] Other 06-28-2022 Miscellaneous Notes* Telephone Encounter - [...] this time. documented in this encounterMercy Health Defiance Hospital06-21-2022 Miscellaneous Notes* Telephone Encounter - Jet [...] 03/28. Thanks! documented in this encounterMercy Health Defiance Hospital06-17-2022 History of Present illness Narrative* Jessi [...] (FLONASE) 50 mcg/actuation nasal spray Use 1 Leola in each nostril once daily. carBAMazepine XR [...] THE LUNGS every 4 hours if needed rgqqswbecfx-uoxuwnqdm-ojducutx (TRELEGY ELLIPTA) 100-62.5-25 mcg Inhale 1 Puff [...] Colorectal Surgery documented in this encounterMercy Health Defiance Hospital06-17-2022 Nurse Note* Mary Mena MA - 04/22/2022 12:06 PM EDT .What is the reason for your visit today? Post op Who is your referring physician? Self Are you having poor oral intake? NO Have you had unintentional weight loss of 15 lbs/7 Kg in the last 3-6 months? NO Bowels: regular Wound: none Temperature: No Drains: No documented in this encounterMercy Health Defiance Hospital06-02-2022 Miscellaneous Notes* Telephone Encounter - Rachael - 04/07/2022 12:35 AM EDT Record ID: [id number] Patient name: Mary Leal Date: April [birth year], [...] it that you would recommend [facility] to a friend or family member? -> likely Please tell me what you liked best about your hospital experience: -> The nurses documented in this encounterMercy Health Defiance Hospital05-31-2022 NoteHNO ID: [id number] Author: Pravin Ladd MD Service: Colorectal Author Type: Resident Type: Progress Notes Filed: 04/05/2022 7:52 AM Note Text: COLORECTAL SURGERY PROGRESS NOTE Mary Leal [id number] ASSESSMENT AND PLAN Mary Leal is a [...] - General Pravin Ladd MD General Surgery residentMclean [id number] NoteHNO ID: [id number] Author: Nita Lamas MD Service: Colorectal Author Type: Fellow Type: Progress Notes Filed: 04/04/2022 9:40 AM Note Text: COLORECTAL SURGERY PROGRESS NOTE Mary Leal [id number] ASSESSMENT AND PLAN Mary Leal is a [...] Nita Lamas MD Colorectal Fellow 04/04/2022 9:40 [facility]05-29-2022 NoteHNO ID: [id number] Author: Pravin Ladd MD Service: Colorectal Author Type: Resident Type: Progress Notes Filed: 04/03/2022 8:03 AM Note Text: COLORECTAL SURGERY PROGRESS NOTE Mary Leal [id number] ASSESSMENT AND PLAN Mary Leal is a [...] - General Pravin Ladd MD General Surgery ResidentMclean SoutheastLzptblvp87-75-9023 NoteHNO ID: [id number] Author: Nancy Cadena MD Service: Colorectal Author Type: Resident Type: Progress Notes Filed: 04/02/2022 8:34 AM Note Text: COLORECTAL SURGERY PROGRESS NOTE Mary Leal [id number] ASSESSMENT AND PLAN Mary Leal is a [...] Nancy Cadena MD General Surgery Resident, PGY-2 [id number] [id number] NoteHNO ID: [id number] Author: Nancy Cadena MD Service: Colorectal Author [...] 2022 COLORECTAL SURGERY PROGRESS NOTE Mary Leal [id number] ASSESSMENT AND PLAN Mary Leal is a [...] Nancy Cadena MD General Surgery Resident, PGY-2 [id number] [id number] NoteHNO ID: [id number] Author: Yolanda Lamb MD Service: Colorectal Author Type: Resident Type: Progress Notes Filed: 03/31/2022 9:08 AM Note Text: COLORECTAL SURGERY PROGRESS NOTE Mray Leal [id number] ASSESSMENT AND PLAN Mary Leal is a [...] Dispo: RNF for now Discussed with Dr. bOrien Patient Active Hospital Problem List: Chronic constipation [...] CBC, Coags, BMP, Mg, Phos Recent Labs 05/25/22 0746 03/29/22 0752 WBC 11.25* 7.04 HB [...] RESECTION AND ANASTOMOSIS - General Yolanda Lamb MDMclean SoutheastDpbbhdwn67-82-9487 NoteHNO ID: [id number] Author: Pravin Ladd MD Service: Colorectal Author [...] 2022 COLORECTAL SURGERY PROGRESS NOTE Maryjonathan Leal [id number] ASSESSMENT AND PLAN Maryjonathan Leal is a 51 year old female with PMHx Asthma, HTN, BPD, Dyslipidemia and colonic inertia who is now s/p Hand assisted TAC, EI takedown + OANH 03/28 - D/C ELECTRONIC WARFARE SPECIALIST - Advance to GI soft diet - [...] RESECTION AND ANASTOMOSIS - General Pravin Ladd MDMclean [id number] NoteHNO ID: [id number] Author: ELIZABETH Dias Service: Care Management Author Type: Front Clerk Type: Care Mgt Initial Assessment Filed: [...] time ADVANCE DIRECTIVES Current Advance Directive: None Senior Communications Engineer Attempted to Assist with AD Completion: Yes [...] Housing Stability: Not on file PATIENT SCREEN Patient/Try On Baster Stated Goals: To be cured/healed Under the [...] March 29, 2022 TIME: 3:45 PM PHONE: [phone] [id number] NoteHNO ID: [id number] Author: Pravin Ladd MD Service: Colorectal Author Type: Resident Type: Progress Notes Filed: 04/01/2022 5:50 AM Note Text: COLORECTAL SURGERY PROGRESS NOTE Mary Leal [id number] ASSESSMENT AND PLAN Mary Leal is a 51 year old female with PMHx Asthma, HTN, BPD, Dyslipidemia and colonic inertia who is now s/p Hand assisted TAC, EI takedown + OANH 03/28 - ELECTRONIC WARFARE SPECIALIST for pain control - Magnesium replacement for [...] RESECTION AND ANASTOMOSIS - General Pravin Ladd MDMclean SoutheastZeqaqoce83-94-5124 NoteHNO ID: [id number] Author: Nathanael Craig DO Service: Anesthesiology Author Type: Anesthesiologist Type: Anesthesia Procedure Notes Filed: 03/28/2022 4:16 PM Note Text: ANESTHESIOLOGY PROCEDURE NOTE Peripheral Nerve Block General Information Procedure Start Time/Medication Administration: 03/28/2022 3:50 PM Procedure End time: 03/28/2022 3:55 PM Patient location during procedure: OR Timeout Performed Pre-procedure: timeout performed Consent Obtained: Yes 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 Reason for block: post-op [...] identity confirmed: 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 Reason for block: post-op pain management/at surgeon's [...] March 28, 2022 TIME: 4:14 PM CSN: [id number] [id number] NoteHNO ID: [id number] Author: Carmen Stanley APRN.MULTICUT LINE OPERATOR Service: Anesthesiology Author Type: Nurse Compensator Worker Type: Anesthesia Procedure Notes Filed: 03/28/2022 9:49 AM Note Text: ANESTHESIOLOGY PROCEDURE NOTE Airway General Information Procedure Start Time/Medication Administration: 03/28/2022 9:21 AM Patient location during procedure: OR 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 Would like a call back at [phone] documented in this encounterMer[facility]-10-2022 Miscellaneous Notes* Telephone Encounter - Jennie Moreno RN - 03/15/2022 2:39 PM EDT Outside medical record EGD H Pylori biopsy received by fax. Scanned into [facility] under scanned documents. Hard copy handed to Dr. Masters. Per Dr Masters- please call patient and let her know the H Pylori biopsy is negative. Called patient . Message relayed. No questions at this time. * Telephone Encounter - Karthikeyan Turk RN - 03/15/2022 2:21 PM EDT Called [facility] and I was transferred to medical records. Requesting a cover sheet with the request result be faxed to them at [phone]. H Pylori result request faxed with confirmation. * Telephone Encounter - Karthikeyan Turk RN - 03/15/2022 2:21 PM EDT Images from the original note were not included. DO Leo Mariano Sp Dds[facility] Clinical Pool Please contact [employer] [facility] [phone] to see if the H pylori biopsy is back yet from her EGD there documented in this encounterMercy [facility] Defiance [facility]05-10-2022 Evaluation note* Encounter Date Diagnosis Assessment [...] note writ ten by Wanda Yang LPN, Track Watchman. Edited and approved by Dr. Beto Snyder MD. [facility] Other 05-10-2022 Miscellaneous Notes* Telephone Encounter - Silvia Ybarra - 03/15/2022 1:24 PM EDT CECILIA for Dexilant renewal initiated through [employer]. Awaiting response ID# [id number] Rx BIN [id number] Rx PCN MCAIDOH Rx Grp [id number] documented in this encounterMercy [facility]05-10-2022 Miscellaneous Notes* Telephone Encounter - Jet Wong RN - 03/15/2022 9:28 AM EDT She called the office with complaints of dark red blood in her ostomy bag for the last 2 weeks. Shewas down in [place] when it started. She had an EGD in [place] that showed gastritis. She followed up with [...] this time. documented in this encounterMercy Health [facility]05-10-2022 History of Present illness Narrative* Isra [...] seem be musculoskeletal in nature.EGD done in [facility] showed some gastritis and duodenitis. Current [...] (FLONASE) 50 mcg/actuation nasal spray Use 1 Leola in each nostril once daily. carBAMazepine XR [...] THE LUNGS every 4 hours if needed lsmuxbthdhi-evllermcm-sfcmdjop (TRELEGY ELLIPTA) 100-62.5-25 mcg Inhale 1 Puff [...] no edema RESPIRATORY: No dyspnea : neg INSURANCE FOLLOW UP SPECIALIST: neg The remainder of the review of [...] DO 03/15/2022 documented in this encounterMercy Health [facility]05-09-2022 Instructions* Patient Instructions* Urmila Alexander APRN.PAINT ROLLER 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 - 03/14/2022 10:43 AM EDT PATIENT PREOPERATIVE INSTRUCTIONS Mary Obrien MD has scheduled you for your procedure at this surgery center: [facility]: [phone] --[phone] [address]. Please check in on the1st floor at [...] Procedures: - YOU MUST HAVE A RESPONSIBLE SPACE SCIENCES DIRECTOR TAKE YOU HOME. A PACKAGING MECHANIC OR FRONT CLERK CANNOT BE MADE A RESPONSIBLE SPACE SCIENCES DIRECTOR. - We recommend that a responsible person [...] Advance Directive, please fax a copy to [phone] or email to for it to be [...] that day. documented in this encounterMercy Health [facility]05-09-2022 History and physical note * Urmila [...] fevers. Neurological: No history of TIA's, stroke, COOK DINNER tumor, impaired sensorium, hemiplegia, paraplegia orquadraplegia. No [...] > 1 time per night or hematuria. INSURANCE FOLLOW UP SPECIALIST: Negative for abnormal vaginal bleeding, abnormal vaginal [...] every 4 hours if needed Taking Yes uywafvnlvui-nzzodjpfa-iaaqnbuk (TRELEGY ELLIPTA) 100-62.5-25 mcg Inhale 1 Puff [...] (FLONASE) 50 mcg/actuation nasal spray Use 1 Leola in each nostril once daily. No medication [...] or any previous visit (from the past 21822 hour(s)). EKG: Assessment HTN (hypertension) Assessment: Managed [...] of difficult airway No abnormal airway history [id number] Score: Age: <65 Sex: Female Hypertension history: [...] PAGER/CONTACT #: documented in this encounterMercy Health Defiance [facility]04-25-2022 Miscellaneous Notes* Telephone Encounter - Isra [...] Monday, 03/02, at 0900 - routed to [employer] pool to make it legit. Please advise. documented in this encounterMercy Health [facility] Hospital04-15-2022 Instructions* Patient Instructions* Nelsy Chávez APRN.CNP - 02/18/2022 1:18 PM EDT Healing as expected from surgery. You have a pinpoint area of suture just under the vaginal epithelium surface that may need more time to fully heal. Please call the office if you would like to try vaginal estrogen cream or with any questions/concerns. documented in this encounterMercy Health Defiance Hospital04-15-2022 History of Present illness Narrative* Nelsy [...] no Pain: no Abnormal Vaginal Discharge: no INSURANCE FOLLOW UP SPECIALIST HISTORY: Last pap: cannot remember; Last mammogram: She has never had a mammogram LMP: No LMP recorded. Patient has had a hysterectomy.; Menopause n/a: Menstrual history: NA; Deliveries: I have confirmed and edited as necessary, the PFSH obtained by others. Nelsy Chávez APRN.PAINT ROLLER 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 Vp Strategic Partnerships offered: Patient declines. OBJECTIVE: There were no [...] if this helps. She is traveling to [place] to see her ailing father for two weeks and would like to wait for now to see if things resolve. She knows she can call the office if she changes her mind and would like to trial vaginal estrogen Nelsy Chávez APRN.KWESI documented in this encounterMercy [facility]04-08-2022 History of Present illness Narrative* Flaca [...] Minutes (timed and untimed codes) : 15 lFaca Bartholomew PT documented in this encounterMercy Health Defiance Hospital04-05-2022 Nurse Note* Re Sierra MA - [...] Drains: No documented in this encounterMercy Health Defiance Hospital04-05-2022 History of Present illness Narrative* Mary Obrien MD - 02/08/2022 2:40 PM EDT COLORECTAL SURGERY February 08, 2022 Mary Zoya Leal Chief Complaint: follow up History of [...] (FLONASE) 50 mcg/actuation nasal spray Use 1 Leola in each nostril once daily. carBAMazepine XR [...] THE LUNGS every 4 hours if needed lhdmptgwqtq-ixxvpbgkk-rnvgzzsj (TRELEGY ELLIPTA) 100-62.5-25 mcg Inhale 1 Puff [...] medical complications of surgery including DVT/PE, PNA, SD, stroke, and . The patient understands these risks and is in agreement with proceeding. Medical Decision Making: Data Reviewed: Tests & Documents Reviewed/ordered: Review of prior notes from myself, OR, Dr. Wang Review of prior operative reports I have discussed Mary Leal's treatment plan and/or results with the patient. Mary Obrien MD Colorectal Surgery documented in this encounterMercy Health [facility]04-05-2022 History of Present illness Narrative* Magali Mitchell APRN.PAINT ROLLER 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 - 02/08/2022 11:04 AM EDT Female Pelvic [...] you received about pain medications helpful? Yes Vp Strategic Partnerships offered:Patient declines OBJECTIVE: BP 113/76 Pulse 74 [...] understanding. Magali Mitchell APRN.KWESI documented in this encounterMercy Health [facility] Hospital03-29-2022 Miscellaneous Notes* Telephone Encounter - Steffi Ross LPN - 02/01/2022 11:08 AM EDT [facility] 06-10-21 Pharmacy and Rx request verified. Please file if appropriate. Thank you Steffi Ross LPN documented in this encounterMercy Health Defiance Hospital03-28-2022 NoteHNO ID: [id number] Author: Newton Woodward, PT Service: ? Author Type: Physical Therapist Type: Progress Notes Filed: 01/31/2022 1:23 PM Note Text: Episode Visit Count: 3 Therapist That Will Oversee The Plan Of Care: La then transfer to [place] Start of Care Date: 01/18/22 Onset [...] Service Patient transferring care to: [facility] [place] Bartholomew SUBJECTIVE: Patient Reason for Visit: [...] untimed codes) : 40 Newton Woodward PT, [facility]03-28-2022 History of Present illness Narrative* Newton Woodward, PT - 01/31/2022 10:42 AM EDT Episode Visit Count: 3 Therapist That Will Oversee The Plan Of Care: La then transfer to [place] Start of Care Date: 01/18/22 Onset Date: [...] Service Patient transferring care to: [facility] [place] Bartholomew SUBJECTIVE: Patient Reason for Visit: [...] PT, DPT documented in this encounterMercy Health [facility]iance Hospital03-21-2022 NoteHNO ID: [id number] Author: Newton Woodward PT Service: ? Author Type: Physical Therapist Type: Progress Notes Filed: 01/24/2022 1:23 PM Note Text: Episode Visit Count: 2 Therapist That Will Oversee The Plan Of Care[facility] Care Date: 01/18/22 Onset [...] untimed codes) : 45 Newton Woodward PT, [facility]03-15-2022 NoteHNO ID: [id number] Author: Jessi Isaacs, PT Service: ? Author Type: Physical Therapist Type: Progress Notes Filed: 01/18/2022 1:56 PM Note Text: Episode Visit Count: 1 Therapist That Will Oversee The Plan Of Care: La then transfer to [facility] [place] Start of Care Date: 01/18/22 Onset [...] Planned: 8 Planned Treatment Interventions: Therapeutic exercise (85516);Neuromuscular re-education (60986);Manual therapy (28152);Therapeutic activities (36923);Self-jail management (08550);Patient/Family/Caregiver Education PLAN FOR NEXT VISIT: PFM dynamics; biofeedback Patient demonstrates good understanding of plan of care and treatment. The above goals and plan of care were discussed and agreed upon by patient/family. Transfer of Care Due To: Closer to Home (patient to transfer in February 2022) Patient transferring care to: [facility] [place] Bartholomew SUBJECTIVE: Mary Leal is a [...] function/quality of life. 52 (more content not included)...[facility] CenterBfoepreb53-72-3781 NoteHNO ID: [id number] Author: Moni Munguia RN Service: Care Management Author Type: Registered Nurse Type: Care Mgt Progress Note Filed: 12/27/2021 4:17 PM Note Text: CARE MANAGEMENT DISCHARGE NOTE SERVICE DATE: 12/27/2021 SERVICE TIME: 4:14 PM LOS: 3 days Admission Date: 12/24/2021 DISCHARGE ARRANGEMENT (list agency and phone number) Discharge Arrangement: Home with Home Health Provider Name: [address] CAREGIVER ASSESSMENT: HANDOFF COMMUNICATION: Handoff to: Primary Care Physician Primary Care Physician Name/Phone: Eliceo Gómez Jr [phone] TRANSPORTATION ARRANGEMENTS: Transportation Arrangements: N/A The Pt is accepted by [address] for new ostomy care. The SOC will be within 24 to 48 hrs. The pt will be contacted directly with the SOC. The Pt verbalized agreement with this dc plan. SIGNATURE: Moni Munguia RN PATIENT NAME: Mary Leal DATE: December 27, 2021 TIME: 4:14 PM PAGER/CONTACT #: [phone] [id number] NoteHNO ID: [id number] Author: Parish Celeste DO Service: Colorectal Author [...] - Pain and nausea control -> d/c ELECTRONIC WARFARE SPECIALIST - D/c entereg - Culturelle - Continue [...] 0659 12/27/21 07 - 12/28/21 0659 Shift 4430-7207 1956-8628 2388-1852 24 Hour Total 6904-7806 3132-2210 1225-4019 24 Hour Total INTAKE PO 60 60 PO 60 60 IV 2099 2100 Volume (mL) (lactated ringers iv infusion) 2099 2099 Shift Total 2160 2160 OUTPUT Urine 3297 155 0873 2300 200 200 Void (ml) 300 1000 1300 200 200 Output ( Indwelling Urinary Catheter 12/24/21 Call 16 Fr) 1000 1000 Emesis 0 0 Emesis (ml) 0 0 Ostomy 250 125 375 Ileostomy 1 250 125 375 # of BMs Number of BMs 0 x 0 x Shift Total 8357 492 3672 2675 200 200 Weight (kg) 82.1 82.1 82.1 82.1 82.1 82.1 82.1 82.1 Recent Labs 12/26/21 0755 12/25/21 0606 WBC -- 5.96 HB -- 11.6 HCT -- 35.2* PLT -- 271 NA 139 141 K 4.0 4.0 CHLOR 102 104 CO2 28 28 CREAT 0.62* 0.72 BUN 10 12 GLUC 71 91 CA 8.5 8.5 Parish Celeste DO General Surgery, PGY-4 [phone] After 6 pm and on the weekends please page [phone] 12-26-2021 NoteHNO ID: [id number] Author: Jenifer Ayala MD Service: Colorectal Author Type: Fellow Type: Progress Notes Filed: 12/26/2021 12:13 PM Note Text: GENERAL SURGERY PROGRESS NOTE Name: Mary Leal 12/26/2021 12:11 PM Interval Events: Patient doing well post-operatively. No acute events overnight. Tolerating CLD diet without nausea or vomiting. Stoma productive of bilious fluid + gas Pain well controlled with ELECTRONIC WARFARE SPECIALIST + oral pain medication (feels most relief from po oxycodone). Assessment and Plan: 51 year old female with pelvic organ prolapse and chronic constipation, likely slow transit but with possible component of pelvic outlet obstruction and with discordant testing. Patient underwent laparoscopic protopexy on 12/24/21 surgery was uneventful. Post-operative course has been uncompliacted. Pain control- Tylenol Gabapentin Toradol ELECTRONIC WARFARE SPECIALIST: Dilaudid, tegretol, klonopin, requip, trintellix, oxycodone Cardiac- [...] any questions or concerns page [facility] [phone] Objective Physical exam: BP 117/66 Pulse 77 [...] 0659 12/26/21 07 - 12/27/21 0659 Shift 7022-3472 1934-4531 5270-0674 24 Hour Total 0200-8065 5557-3544 5365-2063 24 Hour Total INTAKE PO 60 60 PO 60 60 IV 213 668 881 Volume (mL) (lactated ringers iv infusion) 213 668 881 Shift Total 273 668 941 OUTPUT Urine 894 769 6858 1000 Void (ml) 0 0 Output ( Indwelling Urinary Catheter 12/24/21 Call 16 Fr) 518 450 6899 1000 Emesis 0 0 Emesis (ml) 0 0 Ostomy 100 100 Ileostomy 1 100 100 # of BMs Number of BMs 0 x 0 x Shift Total 021 165 3776 1000 Weight (kg) 82.1 82.1 82.1 82.1 [...] Diagnosis Date Noted - Pelvic floor dysfunction 12/24/2021[facility]Zhtptthr02-74-4812 NoteHNO ID: [id number] Author: Sonido Owen MD Service: Colorectal Author [...] been uncompliacted. Pain control- Tylenol Gabapentin Toradol ELECTRONIC WARFARE SPECIALIST: Dilaudid, tegretol, klonopin, requip, trintellix Cardiac- Vitals: [...] Owen MD General Surgery PGY 2 Pg [phone] For any questions or concerns page [facility] [phone] Objective Physical exam: BP 111/61 Pulse 86 [...] 0659 12/25/21 07 - 12/26/21 0659 Shift 3043-0375 2219-5454 0743-2090 24 Hour Total 5213-1821 1973-8526 6618-6322 24 Hour Total INTAKE PO 240 120 360 PO 240 120 360 IV 3100 3100 Volume (mL) (lactated ringers iv infusion) 1800 1800 Volume (mL) (lactated ringers iv infusion) 1300 1300 Shift Total 3100 772 165 6550 OUTPUT Urine 200 076 282 9667 OR Urine Output 200 200 Output ( Indwelling Urinary Catheter 12/24/21 Call 16 Fr) 300 500 800 Emesis 0 0 0 Emesis (ml) 0 0 0 Ostomy 0 0 0 Ileostomy 1 0 0 0 # of BMs Number of BMs 0 x 0 x 0 x Blood 50 50 Estimated Blood loss 50 50 Shift Total 250 607 806 1275 Weight (kg) 82.1 82.1 82.1 82.1 82.1 [...] Diagnosis Date Noted - Pelvic floor dysfunction 12/24/2021[facility]Eblkzzjw62-64-6159 NoteHNO ID: [id number] Author: Carmen Stanley APRN.MULTICUT LINE OPERATOR Service: Anesthesiology Author Type: Nurse Compensator Worker Type: Anesthesia Procedure Notes Filed: 12/24/2021 [...] Hand Imaging Guidance Used: No SIGNATURE: Carmen Arpidone, FINISH FILER.MULTICUT LINE OPERATOR PATIENT NAME: Mary Leal DATE: December 24, 2021 TIME: 8:44 AM CSN: [id number] NoteHNO ID: [id number] Author: Carmen Stanley APRN.CRNA Service: Anesthesiology Author Type: Nurse Compensator Worker Type: Anesthesia Procedure Notes Filed: 12/24/2021 8:44 AM Note Text: ANESTHESIOLOGY PROCEDURE NOTE Airway General Information Procedure Start Time/Medication Administration: 12/24/2021 8:22 AM Patient location during procedure: OR 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, care steam cleaning 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 Edited and approved by Dr. Beto Snyder MD. [facility] Other 11-01-2021 Evaluation note* Encounter Date Diagnosis [...] note writ ten by Lupillo Amezquita MA, Track Watchman. Edited and approved by Dr. Beto Snyder MD. [facility] Other 10-14-2021 Evaluation note* Encounter Date Diagnosis [...] no improvement in 2 to 3 days. [facility] Other 10-08-2021 Evaluation note* Encounter Date Diagnosis [...] writting by [facility] At Home document [facility] Other 10-07-2021 Evaluation note* Encounter Date Diagnosis [...] Aug, Other chronic pain (ICD-10 - G89.29) [facility] Other 09-22-2021 Evaluation note* Encounter Date Diagnosis [...] Jul, Other chronic pain (ICD-10 - G89.29) [facility] Other 03-01-2021 Note [id number]:127Filippo [facility] 01-04-2021 NoteCystoscopy with Botox injection [...] if you have a fever over 100 degrees.[facility] 11-11-2020 NoteChief Complaint Pt is [...] Information Dawna Marmolejo MD [address] [place] [address]- [phone] Additional Instructions: F/u in 1yr. Patient Education [...] deficit disorder Bipolar disorder (more content not included)...[facility] Comment on above:Result Comment: Electronically Signed By: Dawna Marmolejo MD\.br\Date and Time Signed: 11/11/2111:16 EST\.br\Electronically Co-Signed By: Christy Gill MA\.br\Date and Time Co-Signed: 11/11/20 12:07 [id number] [id number]:127[facility] Narrative - Reported* MARY LEAL is being seen for an initial evaluation of. * 52-year-old female seen in cardiology consultation at the request of her primary care physician forelevated troponin while in [facility] this past spring that was associated with a GI bleed/gastritis. * Patient recently underwent large bowel resection details of which are unknown and I suspect possibly consistent with ulcerative colitis but again unknown pathology. She had a diverting colostomy with3 anastomosis performed. While in [place] with her GI bleed and primarily gastric [...] * I believe minor troponin elevation in [place] was simply at small type II non- SD troponin elevationrelated to inflammation and gastritis and [...] colectomy. She can follow-up as needed otherwise. [place] [address] DO Work Phone: Evaluation note* Diagnosis Pelvic floor dysfunction- Primary Pelvic muscle wasting Lack of coordination Follow-up examination after colorectal surgery Follow-up examination, following other surgery [facility] Diagnosis Gastroesophageal reflux disease, unspecified whether esophagitis present documented [facility]* Diagnosis Follow-up examination after colorectal surgery- Primary Follow-up examination, following other surgery [facility]* Diagnosis Post-operative state- Primary Other postprocedural status Yeast infection of the skin Candidiasis of skin and nails [facility]* Diagnosis Pelvic floor dysfunction- Primary Pelvic muscle wasting Lack of coordination Follow-up examination after colorectal surgery Follow-up examination, following other surgery [facility]* Diagnosis Postoperative state- Primary Other postprocedural status Attention to ileostomy ([facility]) Attention to ileostomy documented in this encounter [facility] note* Diagnosis Preop examination- Primary Preoperative examination, unspecified Attention to ileostomy ([facility]) Attention to ileostomy Primary hypertension Unspecified essential hypertension Gastroparesis Gastroesophageal reflux disease, unspecified whether esophagitis present Mild persistent asthma without complication Unspecified asthma Bipolar 1 disorder (HCC) Bipolar I disorder, most recent episode (or current) unspecified Obesity (BMI 30.0-34.9) Obesity, unspecified Attention to ileostomy ([facility]) Attention to ileostomy documented in this encounter [facility] note* Diagnosis Gastroesophageal reflux disease, unspecified whether esophagitis present Chronic idiopathic constipation Unspecified constipation Attention to ileostomy ([facility]) Attention to ileostomy documented in this encounter [facility] note* Diagnosis Follow-up examination after colorectal surgery- Primary Follow-up examination, following other surgery Pelvic floor dysfunction Pelvic muscle wasting documented in this encounter [facility] noteNo InformationNoWildBlue mana.bo Other Evaluation noteNoWildBlue mana.bo Other Evaluation note* Diagnosis Follow-up examination after colorectal surgery- Primary Follow-up examination, following other surgery Periumbilical abdominal pain Abdominal pain, periumbilic Outlet dysfunction constipation Colonic inertia Other functional disorders of intestine documented in this encounter [facility] noteNo assessment information [facility] Work Phone: Evaluation note* Diagnosis Gas bloat syndrome- Primary Chronic idiopathic constipation Unspecified constipation Gastroparesis documented in this encounter [facility] note* Diagnosis Gastroesophageal reflux disease, unspecified whether esophagitis present documented in this encounter [facility] note* Diagnosis Gastroparesis- Primary documented in this encounter [facility] note* Diagnosis CHUCKIE (obstructive sleep apnea)- Primary Obstructive sleep apnea (adult) (pediatric) documented in this encounter [facility] note* Diagnosis Pre-op exam- Primary Preoperative examination, unspecified Primary hypertension Unspecified essential hypertension Mild persistent asthma without complication Unspecified asthma Gastroparesis CHUCKIE (obstructive sleep apnea) Obstructive sleep apnea (adult) (pediatric) [facility] Diagnosis CHUCKIE (obstructive sleep apnea)- Primary Obstructive sleep apnea (adult) (pediatric) [facility] Diagnosis Chronic idiopathic constipation- Primary Unspecified constipation Nausea Nausea alone [facility] Diagnosis Gastroesophageal reflux disease with esophagitis without hemorrhage- Primary [facility] Diagnosis Colonic inertia- Primary Other functional disorders of intestine Pelvic floor dysfunction Pelvic muscle wasting Nausea Nausea alone Gastroparesis documented in this encounter [facility] note* Diagnosis Pylorospasm- Primary Functional dyspepsia Dyspepsia and other specified disorders of function of stomach Gastroesophageal reflux disease with esophagitis without hemorrhage documented in this encounter [facility] note* Diagnosis Gastroesophageal reflux disease, unspecified whether esophagitis present [facility] Diagnosis CHUCKIE (obstructive sleep apnea)- Primary Obstructive sleep apnea (adult) (pediatric) documented in this encounter [facility] note* Diagnosis Pylorospasm- Primary Functional dyspepsia Dyspepsia and other specified disorders of function of stomach Gastroesophageal reflux disease with esophagitis without hemorrhage documented in this encounter [facility] note* Diagnosis Gastroparesis- Primary documented in this encounter [facility] note* Diagnosis Preop examination- Primary Preoperative examination, unspecified Nausea Nausea alone CHUCKIE (obstructive sleep apnea) Obstructive sleep apnea (adult) (pediatric) Mild persistent asthma without complication Unspecified asthma Gastroesophageal reflux disease, unspecified whether esophagitis present Gastroparesis documented in this encounter [facility] note* Diagnosis 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 Personal history of other diseases of digestive system documented in this encounter [facility] note* Diagnosis Gastroesophageal reflux disease, unspecified whether esophagitis present documented in this encounter [facility] note* Diagnosis Incomplete bladder emptying- Primary Constipation, unspecified constipation type Urinary urgency Urgency of urination Urinary frequency Nocturia documented in this encounter [facility] note* Diagnosis Upper abdominal pain- Primary Abdominal pain, other specified site [facility] Diagnosis Burning with urination- Primary Dysuria documented in this encounter [facility] note* Diagnosis Bety vaginitis Candidiasis of vulva and vagina documented in this encounter [facility] note* Diagnosis CHUCKIE (obstructive sleep apnea)- Primary Obstructive sleep apnea (adult) (pediatric) Pre-op testing- Primary Unspecified pre-operative examination CHUCKIE (obstructive sleep apnea) Obstructive sleep apnea (adult) (pediatric) [facility] Diagnosis CHUCKIE (obstructive sleep apnea)- Primary Obstructive sleep apnea (adult) (pediatric) [facility] Diagnosis Pre-op examination- Primary Preoperative examination, [...] urge Urge incontinence [facility] Diagnosis Educational circumstances- Primary Educational circumstance Urinary urgency Urgency of urination Urinary frequency OAB (overactive bladder) Hypertonicity of bladder Urinary incontinence, urge Urge incontinence [facility]* Diagnosis Post-operative state- Primary Other postprocedural status [facility] Diagnosis Procedure and treatment not carried out for other reasons- Primary documented [facility] Diagnosis Post-operative state- Primary Other postprocedural status Vaginal burning Other specified symptom associated with female genital organs [facility] Diagnosis Vaginal burning- Primary Other specified symptom associated with female genital organs [facility] Diagnosis Nebo grade D esophagitis Early satiety Unintentional weight loss Loss of weight Gastroparesis [facility] Diagnosis Gas bloat syndrome [facility] Diagnosis Pain Generalized pain Pre-op evaluation- Primary Preoperative examination, unspecified Impingement syndrome of right shoulder Other affections of shoulder region, not elsewhere classified Arthritis of right acromioclavicular joint Unspecified arthropathy, shoulder region Partial nontraumatic rupture of right rotator cuff Hypertension, unspecified type Gastroparesis Esophageal dysphagia Dysphagia, pharyngoesophageal phase Bipolar 1 disorder (HCC) Bipolar I disorder, most recent episode (or current) unspecified Obesity (BMI 30.0-34.9) Obesity, unspecified Preop examination- Primary Preoperative examination, unspecified Pelvic floor dysfunction Pelvic muscle wasting Feeling of incomplete bladder emptying Incomplete bladder emptying Mild persistent asthma without complication Unspecified asthma Primary hypertension Unspecified essential hypertension Gastroparesis Bipolar 1 disorder (HCC) Bipolar I disorder, most recent episode (or current) unspecified Obesity (BMI 30.0-34.9) Obesity, unspecified Gastroesophageal reflux disease, unspecified whether esophagitis present History of 2019 novel coronavirus disease (COVID-19) Preoperative clearance- Primary Preoperative examination, unspecified Pelvic floor dysfunction Pelvic muscle wasting Rectocele Cystocele, midline Mild persistent asthma without complication Unspecified asthma Primary hypertension Unspecified essential hypertension Gastroesophageal reflux disease, unspecified whether esophagitis present Bipolar 1 disorder (HCC) Bipolar I disorder, most recent episode (or current) unspecified Gastroparesis Obesity (BMI 30.0-34.9) Obesity, unspecified History of 2019 novel coronavirus disease (COVID-19) Preop examination- Primary Preoperative examination, unspecified Attention to ileostomy (HCC) Attention to ileostomy Primary hypertension Unspecified essential hypertension Gastroparesis Gastroesophageal reflux disease, unspecified whether esophagitis present Mild persistent asthma without complication Unspecified asthma Bipolar 1 disorder (HCC) Bipolar I disorder, most recent episode (or current) unspecified Obesity (BMI 30.0-34.9) Obesity, unspecified Pre-op exam- Primary Preoperative examination, unspecified Primary hypertension Unspecified essential hypertension Mild persistent asthma without complication Unspecified asthma Gastroparesis CHUCKIE (obstructive sleep apnea) Obstructive sleep apnea (adult) (pediatric) [facility] Diagnosis Pre-op evaluation- Primary Preoperative examination, unspecified Impingement syndrome of right shoulder Other affections of shoulder region, not elsewhere classified Arthritis of right acromioclavicular joint Unspecified arthropathy, shoulder region Partial nontraumatic rupture of right rotator cuff Hypertension, unspecified type Gastroparesis Esophageal dysphagia Dysphagia, pharyngoesophageal phase Bipolar 1 disorder (HCC) Bipolar I disorder, most recent episode (or current) unspecified Obesity (BMI 30.0-34.9) Obesity, unspecified Post-operative state Other postprocedural status Preop examination- Primary Preoperative examination, unspecified Pelvic floor dysfunction Pelvic muscle wasting Feeling of incomplete bladder emptying Incomplete bladder emptying Mild persistent asthma without complication Unspecified asthma Primary hypertension Unspecified essential hypertension Gastroparesis Bipolar 1 disorder (HCC) Bipolar I disorder, most recent episode (or current) unspecified Obesity (BMI 30.0-34.9) Obesity, unspecified Gastroesophageal reflux disease, unspecified whether esophagitis present History of 2019 novel coronavirus disease (COVID-19) Preoperative clearance- Primary Preoperative examination, unspecified Pelvic floor dysfunction Pelvic muscle wasting Rectocele Cystocele, midline Mild persistent asthma without complication Unspecified asthma Primary hypertension Unspecified essential hypertension Gastroesophageal reflux disease, unspecified whether esophagitis present Bipolar 1 disorder (HCC) Bipolar I disorder, most recent episode (or current) unspecified Gastroparesis Obesity (BMI 30.0-34.9) Obesity, unspecified History of 2019 novel coronavirus disease (COVID-19) Preop examination- Primary Preoperative examination, unspecified Attention to ileostomy (HCC) Attention to ileostomy Primary hypertension Unspecified essential hypertension Gastroparesis Gastroesophageal reflux disease, unspecified whether esophagitis present Mild persistent asthma without complication Unspecified asthma Bipolar 1 disorder (HCC) Bipolar I disorder, most recent episode (or current) unspecified Obesity (BMI 30.0-34.9) Obesity, unspecified Pre-op exam- Primary Preoperative examination, unspecified Primary hypertension Unspecified essential hypertension Mild persistent asthma without complication Unspecified asthma Gastroparesis CHUCKIE (obstructive sleep apnea) Obstructive sleep apnea (adult) (pediatric) [facility] - [facility]* Type Description Date [...] see above list Hospitalization History respiratory 02/2020 [place] Other History general [place] Other History general Narrative - Reported* Type Description Date [...] see above list Hospitalization History respiratory 02/2020 [facility] Other InstructionsNot on filedocumented in this encounter [facility] SystemInstructionsNot on filedocumented in this encounter [facility] Outpatient Procedure (Routine) - Pending Review Specialty Diagnoses / Procedures Referred By Gustavo salazar Referred To Contact [facility] Diagnoses Gastroparesis Procedures CAPSULE ENDOSCOPY SMART Isra Masters DO [address] [place] [address] [place] [address] Referral ID Status Reason Start Date Expiration Date Visits Requested Visits Authorized [id number] Pending Review Auto-Generat ed Referral 10/11/2022 10/11/2023 1 1 [facility] ([facility]ative[facility] Outpatient Procedure (Routine) - Pending Review Specialty Diagnoses / Procedures Referred By Gustavo salazar Referred To Contact [facility] Diagnoses Chronic idiopathic constipation Procedures SIGMOIDOSCOPY SIGMOIDOSCOPY FLX DX W/COLLJ SPEC BR/WA IF PFRMD Isra Masters DO [address] [place] [address] [place] [phone] Referral ID Status Reason Start Date Expiration Date Visits Requested Visits Authorized [id number] Pending Review Auto-Generat ed Referral 11/30/2022 11/30/2023 1 1 [facility] for referral (narrative)* Outpatient Procedure (Routine) - Pending Review Specialty Diagnoses / Procedures Referred By Contac t Referred To Contact [facility] Diagnoses Gastroparesis Procedures EGD - THERAPEUTIC, EUS, OR TUBE INTERVENTIONS ESOPHAGOGASTRODUODENOSC OPY TRANSORAL DIAGNOSTIC STOMACH SURGERY PROC[place]URE [place] [address] [place] [phone] Referral ID Status Reason Start Date Expiration Date Visits Requested Visits Authorized [id number] Pending Review Auto-Generat ed Referral 01/11/2023 01/12/2024 1 1 [facility] for referral (narrative)* Outpatient Procedure (Routine) - Pending Review Specialty Diagnoses / Procedures Referred By Contac t Referred To Contact [facility] Diagnoses Incomplete bladder emptying Urinary urgency Urinary frequency Nocturia Procedures URODYNAMICS WHI COMPLX CYSTOMETRO W/VOID PRESS&URETHRAL PROFILE Nelsy Chávez APRN.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 ROLLER 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 [address] [place] [address] [address] Referral ID Status Reason Start Date Expiration Date Visits Requested Visits Authorized [id number] Pending Review Auto-Generat ed Referral 07/31/2023 07/30/2024 1 1 [facility] for referral (narrative)* Consultation (Routine) - Open Specialty Diagnoses / Procedures Referred By Contac t Referred To Contact [facility] Diagnoses Upper abdominal pain Lev Ritter APRN 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 [address] [place] [address] [facility] [address] [facility] [place] [address] Referral ID Status Reason Start Date Expiration Date Visits Re quested Visits Authorized [id number] Open 08/12/2023 09/12/2024 1 1 [facility] NarrativeDISCUSS OTHER OPTIONS PRIOR TO [place]EDURE[place] Other [facility] for visit NarrativeRECHECK CERVICAL PAIN DISCUSS [facility] [place] Other reason for visit Narrative* Outpatient Procedure (Routine) - Closed Specialty Diagnoses / Procedures Referred By Gustavo t Referred To Contact [facility] Diagnoses Gastroparesis Procedures GI TRANSIT & PRES RAVINDER WIRELESS CAPSULE W/Isra Kelly DO [address] [place] [address] [facility] [place] [address] [place] [address] Referral ID Status Reason Start Date Expiration Date Visits Re quested Visits Authorized [id number] Closed 11/08/2022 11/05/2023 1 1 [facility] Summary Purpose Family History No Family [...] FoundDocuments on File Type Date Recorded Patient Try On Baster Expl anation Advance Directive(s) 10/13/2021 4:09 PM Advance Directive(s) 10/14/2020 8:14 AM Documents on File Type Date Recorded Patient Try On Baster Expl anation Advance Directive(s) 10/13/2021 4:09 PM Advance Directive(s) 10/14/2020 8:14 AM Documents on File Type Date Recorded Patient Try On Baster Expl anation Advance Directive(s) 03/21/2022 1:42 PM [...] unspecified whether esophagitis present Isra Masters DO [address] [place] [address] Referral ID Status Reason Start Date Expiration Date Visits Re quested Visits Authorized [id number] Closed 1 1 Referral ID Status Reason Start Date Expiration Date V isits Requested Visits Authorized [id number] Pending Review 1 1 Specialty Diagnoses / Procedures Referred By Contac t Referred To Contact CT IMAG[facility] Diagnoses Periumbilical abdominal pain Procedures CT ABD/PEL W IVCON CT ABD & PEL[place] [address] [facility] [facility] [place] [address] Ct Imaging Referral ID Status Reason Start Date Expiration Date Visits Requested Visits Authorized [id number] Pending Review Auto-Generat ed Referral 08/02/2022 08/25/2023 1 1 Reason BILATERAL SHOULDER P AIN Diagnosis 1 Shoulder pain (M25.5 19) Referral Organization [facility] Referring Provider First Name Beto Referring Provider Last Name Steven Referring Provider Specialty Pain Medici ne Referred Organization [facility] Referred Provider Beto Cartagena Referred Address [address] [facility] [place], [place],[address] Referred Provider Specialty Orthopedic S urgery Referral Priority Routine Referral Appointment Date 2022-10-10 General Notes Kim Manley 10:01:46 AM >patient already scheduled with [facility] 10/10/22 at 1:30pm. Sending p2p at this time Referral ID Status Reason Start Date Expiration Date Visits Re quested Visits Authorized [id number] Closed 1 1 Specialty Diagnoses / Procedures Referred By Contac t Referred To Contact Diagnoses Nebo grade D esophagitis Early satiety Unintentional weight loss Gastroparesis Procedures DIAGNOSTIC UPPER ENDOSCOPY IN ESOPHAGOGASTRODUODENOSCOPY TRANSORAL DIAGNOSTIC Padmaja Llamas MD, PhD [address] [facility] [address] [place] [address] Referral ID Status Reason Start Date Expiration Date V isits Requested Visits Authorized [id number] New Request 03/06/2024 03/31/2025 1 1 Chief [...] weakness, dizziness, diaphoresis with recent work-up that [facility] emergency room. Reportedly her troponins are [...] GI specialist). * Last year while in [place] she had similar issues with elevated troponins in the ED and underwent heart catheterization that did not reveal any specific significant disease, details of the discharge summary are reviewed * She underwent recent stress perfusion imaging at [facility], the report is reviewed, she [...] disease, will investigate the troponin rise at [facility] however I believe this is likely a non- SD troponin elevation, likely associated withunderlying inflammatory bowel disease. We will follow-up on a as needed basis unless further objective data come to light * Patient is a 53-year-old female who returns at the request of her primary care physician with episodic chest discomfort associated weakness, dizziness, diaphoresis with recent work-up that [facility] emergency room. Reportedly her troponins are [...] GI specialist). * Last year while in [place] she had similar issues with elevated troponins in the ED and underwent heart catheterization that did not reveal any specific significant disease, details of the discharge summary are reviewed * She underwent recent stress perfusion imaging at [facility], the report is reviewed, she [...] disease, will investigate the troponin rise at [facility] however I believe this is likely a non- SD troponin elevation, likely associated withunderlying inflammatory bowel disease. We will follow-up on a as needed basis unless further objective data come to light Additional Source Comments INFORMATION SOURCE (unrecogn ized section and content) DATE CREATED AUTHOR 07/08/2021 [facility] DATE CREATED AUTHOR AUTHOR'S ORGANIZ ATION 11/18/2021 [facility] DATE CREATED AUTHOR AUTHOR'S ORGANIZ ATION 02/01/2022 [facility] DATE CREATED AUTHOR AUTHOR'S ORGANIZ ATION 04/05/2022 [facility] DATE CREATED AUTHOR AUTHOR'S ORGANIZ ATION 09/29/2022 [facility] dical Specialist DATE CREATED AUTHOR AUTHOR'S ORGANIZ ATION 12/09/2022 [facility] DATE CREATED AUTHOR AUTHOR'S ORGANIZ ATION 04/16/2023 [facility] DATE CREATED AUTHOR AUTHOR'S ORGANIZ ATION 06/14/2023 [facility] DATE CREATED AUTHOR AUTHOR'S ORGANIZ ATION 08/14/[address] [facility] DATE CREATED AUTHOR AUTHOR'S ORGANIZ ATION 09/02/2023 [facility] DATE CREATED AUTHOR AUTHOR'S ORGANIZ ATION 10/27/2023 [facility] DATE CREATED AUTHOR AUTHOR'S ORGANIZ ATION 01/11/2024 [facility] DATE CREATED AUTHOR AUTHOR'S ORGANIZ ATION 01/26/2024 [facility] DATE CREATED AUTHOR AUTHOR'S ORGANIZ ATION 03/16/2024 [facility] DATE CREATED AUTHOR AUTHOR'S ORGANIZ ATION 05/31/2024 [facility] DATE CREATED AUTHOR AUTHOR'S ORGANIZ ATION 08/05/2024 [facility] dical [facility] [address] [facility] DATE CREATED AUTHOR AUTHOR'S ORGANIZ ATION 08/09/2024 [facility] DATE CREATED AUTHOR AUTHOR'S ORGANIZ ATION 08/12/2024 [facility] DATE CREATED AUTHOR AUTHOR'S ORGANIZ ATION 08/28/2024 [facility] Source Comments (unrecognize d section and content) In the event this informatio n is protected by the Federal Confidentiality of Alcohol and Drug Abuse Patient Records regulations: The Federal rules restrict any use of the information to criminally investigate or prosecute any alcohol or drug abuse patient.[facility] Hospital[facility] the event this information is protected by the Federal Confidentiality of Alcohol and Drug Abuse Patient Records regulations: The Federal rules restrict any use of the information to criminally investigate or prosecute any alcohol or drug abuse patient.[facility] HospitalIn the event this information is protected by the Federal Confidentiality of Alcohol and Drug Abuse Patient Records regulations: The Federal rules restrict any use of the information to criminally investigate or prosecute any alcohol or drug abuse patient.[facility] HospitalIn the event this information is protected by the Federal Confidentiality of Alcohol and Drug Abuse Patient Records regulations: The Federal rules restrict any use of the information to criminally investigate or prosecute any alcohol or drug abuse patient.[facility] HospitalIn the event this information is protected by the Federal Confidentiality of Alcohol and Drug Abuse Patient Records regulations: The Federal rules restrict any use of the information to criminally investigate or prosecute any alcohol or drug abuse patient.[facility] HospitalIn the event this information is protected by the Federal Confidentiality of Alcohol and Drug Abuse Patient Records regulations: The Federal rules restrict any use of the information to criminally investigate or prosecute any alcohol or drug abuse patient.[facility] HospitalIn the event this information is protected by the Federal Confidentiality of Alcohol and Drug Abuse Patient Records regulations: The Federal rules restrict any use of the information to criminally investigate or prosecute any alcohol or drug abuse patient.[facility] Hospital[facility] the event this information is protected by the Federal Confidentiality of Alcohol and Drug Abuse Patient Records regulations: The Federal rules restrict any use of the information to criminally investigate or prosecute any alcohol or drug abuse patient.[facility] Hospital[facility] the event this information is protected by the Federal Confidentiality of Alcohol and Drug Abuse Patient Records regulations: The Federal rules restrict any use of the information to criminally investigate or prosecute any alcohol or drug abuse patient.[facility] Hospital[facility] the event this information is protected by the Federal Confidentiality of Alcohol and Drug Abuse Patient Records regulations: The Federal rules restrict any use of the information to criminally investigate or prosecute any alcohol or drug abuse patient.[facility] Hospital[facility] the event this information is protected by the Federal Confidentiality of Alcohol and Drug Abuse Patient Records regulations: The Federal rules restrict any use of the information to criminally investigate or prosecute any alcohol or drug abuse patient.[facility] HospitalIn the event this information is protected by the Federal Confidentiality of Alcohol and Drug Abuse Patient Records regulations: The Federal rules restrict any use of the information to criminally investigate or prosecute any alcohol or drug abuse patient.[facility] HospitalIn the event this information is protected by the Federal Confidentiality of Alcohol and Drug Abuse Patient Records regulations: The Federal rules restrict any use of the information to criminally investigate or prosecute any alcohol or drug abuse patient.[facility] HospitalIn the event this information is protected by the Federal Confidentiality of Alcohol and Drug Abuse Patient Records regulations: The Federal rules restrict any use of the information to criminally investigate or prosecute any alcohol or drug abuse patient.[facility] HospitalIn the event this information is protected by the Federal Confidentiality of Alcohol and Drug Abuse Patient Records regulations: The Federal rules restrict any use of the information to criminally investigate or prosecute any alcohol or drug abuse patient.[facility] HospitalIn the event this information is protected by the Federal Confidentiality of Alcohol and Drug Abuse Patient Records regulations: The Federal rules restrict any use of the information to criminally investigate or prosecute any alcohol or drug abuse patient.[facility] HospitalIn the event this information is protected by the Federal Confidentiality of Alcohol and Drug Abuse Patient Records regulations: The Federal rules restrict any use of the information to criminally investigate or prosecute any alcohol or drug abuse patient.[facility] HospitalIn the event this information is protected by the Federal Confidentiality of Alcohol and Drug Abuse Patient Records regulations: The Federal rules restrict any use of the information to criminally investigate or prosecute any alcohol or drug abuse patient.[facility] HospitalIn the event this information is protected by the Federal Confidentiality of Alcohol and Drug Abuse Patient Records regulations: The Federal rules restrict any use of the information to criminally investigate or prosecute any alcohol or drug abuse patient.[facility] HospitalIn the event this information is protected by the Federal Confidentiality of Alcohol and Drug Abuse Patient Records regulations: The Federal rules restrict any use of the information to criminally investigate or prosecute any alcohol or drug abuse patient.[facility] HospitalIn the event this information is protected by the Federal Confidentiality of Alcohol and Drug Abuse Patient Records regulations: The Federal rules restrict any use of the information to criminally investigate or prosecute any alcohol or drug abuse patient.[facility] HospitalIn the event this information is protected by the Federal Confidentiality of Alcohol and Drug Abuse Patient Records regulations: The Federal rules restrict any use of the information to criminally investigate or prosecute any alcohol or drug abuse patient.[facility] HospitalIn the event this information is protected by the Federal Confidentiality of Alcohol and Drug Abuse Patient Records regulations: The Federal rules restrict any use of the information to criminally investigate or prosecute any alcohol or drug abuse patient.[facility] HospitalIn the event this information is protected by the Federal Confidentiality of Alcohol and Drug Abuse Patient Records regulations: The Federal rules restrict any use of the information to criminally investigate or prosecute any alcohol or drug abuse patient.[facility] HospitalIn the event this information is protected by the Federal Confidentiality of Alcohol and Drug Abuse Patient Records regulations: The Federal rules restrict any use of the information to criminally investigate or prosecute any alcohol or drug abuse patient.[facility] HospitalIn the event this information is protected by the Federal Confidentiality of Alcohol and Drug Abuse Patient Records regulations: The Federal rules restrict any use of the information to criminally investigate or prosecute any alcohol or drug abuse patient.[facility] HospitalIn the event this information is protected by the Federal Confidentiality of Alcohol and Drug Abuse Patient Records regulations: The Federal rules restrict any use of the information to criminally investigate or prosecute any alcohol or drug abuse patient.[facility] HospitalIn the event this information is protected by the Federal Confidentiality of Alcohol and Drug Abuse Patient Records regulations: The Federal rules restrict any use of the information to criminally investigate or prosecute any alcohol or drug abuse patient.[facility] HospitalIn the event this information is protected by the Federal Confidentiality of Alcohol and Drug Abuse Patient Records regulations: The Federal rules restrict any use of the information to criminally investigate or prosecute any alcohol or drug abuse patient.[facility] HospitalIn the event this information is protected by the Federal Confidentiality of Alcohol and Drug Abuse Patient Records regulations: The Federal rules restrict any use of the information to criminally investigate or prosecute any alcohol or drug abuse patient.[facility] HospitalIn the event this information is protected by the Federal Confidentiality of Alcohol and Drug Abuse Patient Records regulations: The Federal rules restrict any use of the information to criminally investigate or prosecute any alcohol or drug abuse patient.[facility] HospitalIn the event this information is protected by the Federal Confidentiality of Alcohol and Drug Abuse Patient Records regulations: The Federal rules restrict any use of the information to criminally investigate or prosecute any alcohol or drug abuse patient.[facility] HospitalIn the event this information is protected by the Federal Confidentiality of Alcohol and Drug Abuse Patient Records regulations: The Federal rules restrict any use of the information to criminally investigate or prosecute any alcohol or drug abuse patient.[facility] HospitalIn the event this information is protected by the Federal Confidentiality of Alcohol and Drug Abuse Patient Records regulations: The Federal rules restrict any use of the information to criminally investigate or prosecute any alcohol or drug abuse patient.[facility] HospitalIn the event this information is protected by the Federal Confidentiality of Alcohol and Drug Abuse Patient Records regulations: The Federal rules restrict any use of the information to criminally investigate or prosecute any alcohol or drug abuse patient.[facility] HospitalIn the event this information is protected by the Federal Confidentiality of Alcohol and Drug Abuse Patient Records regulations: The Federal rules restrict any use of the information to criminally investigate or prosecute any alcohol or drug abuse patient.[facility] HospitalIn the event this information is protected by the Federal Confidentiality of Alcohol and Drug Abuse Patient Records regulations: The Federal rules restrict any use of the information to criminally investigate or prosecute any alcohol or drug abuse patient.[facility] HospitalIn the event this information is protected by the Federal Confidentiality of Alcohol and Drug Abuse Patient Records regulations: The Federal rules restrict any use of the information to criminally investigate or prosecute any alcohol or drug abuse patient.[facility] HospitalIn the event this information is protected by the Federal Confidentiality of Alcohol and Drug Abuse Patient Records regulations: The Federal rules restrict any use of the information to criminally investigate or prosecute any alcohol or drug abuse patient.[facility] HospitalIn the event this information is protected by the Federal Confidentiality of Alcohol and Drug Abuse Patient Records regulations: The Federal rules restrict any use of the information to criminally investigate or prosecute any alcohol or drug abuse patient.[facility] HospitalIn the event this information is protected by the Federal Confidentiality of Alcohol and Drug Abuse Patient Records regulations: The Federal rules restrict any use of the information to criminally investigate or prosecute any alcohol or drug abuse patient.[facility] HospitalIn the event this information is protected by the Federal Confidentiality of Alcohol and Drug Abuse Patient Records regulations: The Federal rules restrict any use of the information to criminally investigate or prosecute any alcohol or drug abuse patient.[facility] HospitalIn the event this information is protected by the Federal Confidentiality of Alcohol and Drug Abuse Patient Records regulations: The Federal rules restrict any use of the information to criminally investigate or prosecute any alcohol or drug abuse patient.[facility] HospitalIn the event this information is protected by the Federal Confidentiality of Alcohol and Drug Abuse Patient Records regulations: The Federal rules restrict any use of the information to criminally investigate or prosecute any alcohol or drug abuse patient.[facility] HospitalIn the event this information is protected by the Federal Confidentiality of Alcohol and Drug Abuse Patient Records regulations: The Federal rules restrict any use of the information to criminally investigate or prosecute any alcohol or drug abuse patient.[facility] HospitalIn the event this information is protected by the Federal Confidentiality of Alcohol and Drug Abuse Patient Records regulations: The Federal rules restrict any use of the information to criminally investigate or prosecute any alcohol or drug abuse patient.[facility] HospitalIn the event this information is protected by the Federal Confidentiality of Alcohol and Drug Abuse Patient Records regulations: The Federal rules restrict any use of the information to criminally investigate or prosecute any alcohol or drug abuse patient.[facility] HospitalIn the event this information is protected by the Federal Confidentiality of Alcohol and Drug Abuse Patient Records regulations: The Federal rules restrict any use of the information to criminally investigate or prosecute any alcohol or drug abuse patient.[facility] HospitalIn the event this information is protected by the Federal Confidentiality of Alcohol and Drug Abuse Patient Records regulations: The Federal rules restrict any use of the information to criminally investigate or prosecute any alcohol or drug abuse patient.[facility] HospitalIn the event this information is protected by the Federal Confidentiality of Alcohol and Drug Abuse Patient Records regulations: The Federal rules restrict any use of the information to criminally investigate or prosecute any alcohol or drug abuse patient.[facility] HospitalIn the event this information is protected by the Federal Confidentiality of Alcohol and Drug Abuse Patient Records regulations: The Federal rules restrict any use of the information to criminally investigate or prosecute any alcohol or drug abuse patient.[facility] HospitalIn the event this information is protected by the Federal Confidentiality of Alcohol and Drug Abuse Patient Records regulations: The Federal rules restrict any use of the information to criminally investigate or prosecute any alcohol or drug abuse patient.[facility] HospitalIn the event this information is protected by the Federal Confidentiality of Alcohol and Drug Abuse Patient Records regulations: The Federal rules restrict any use of the information to criminally investigate or prosecute any alcohol or drug abuse patient.[facility] HospitalIn the event this information is protected by the Federal Confidentiality of Alcohol and Drug Abuse Patient Records regulations: The Federal rules restrict any use of the information to criminally investigate or prosecute any alcohol or drug abuse patient.[facility] HospitalIn the event this information is protected by the Federal Confidentiality of Alcohol and Drug Abuse Patient Records regulations: The Federal rules restrict any use of the information to criminally investigate or prosecute any alcohol or drug abuse patient.[facility] HospitalIn the event this information is protected by the Federal Confidentiality of Alcohol and Drug Abuse Patient Records regulations: The Federal rules restrict any use of the information to criminally investigate or prosecute any alcohol or drug abuse patient.[facility] HospitalIn the event this information is protected by the Federal Confidentiality of Alcohol and Drug Abuse Patient Records regulations: The Federal rules restrict any use of the information to criminally investigate or prosecute any alcohol or drug abuse patient.[facility] HospitalIn the event this information is protected by the Federal Confidentiality of Alcohol and Drug Abuse Patient Records regulations: The Federal rules restrict any use of the information to criminally investigate or prosecute any alcohol or drug abuse patient.[facility] HospitalIn the event this information is protected by the Federal Confidentiality of Alcohol and Drug Abuse Patient Records regulations: The Federal rules restrict any use of the information to criminally investigate or prosecute any alcohol or drug abuse patient.[facility] HospitalIn the event this information is protected by the Federal Confidentiality of Alcohol and Drug Abuse Patient Records regulations: The Federal rules restrict any use of the information to criminally investigate or prosecute any alcohol or drug abuse patient.[facility] HospitalIn the event this information is protected by the Federal Confidentiality of Alcohol and Drug Abuse Patient Records regulations: The Federal rules restrict any use of the information to criminally investigate or prosecute any alcohol or drug abuse patient.[facility] HospitalIn the event this information is protected by the Federal Confidentiality of Alcohol and Drug Abuse Patient Records regulations: The Federal rules restrict any use of the information to criminally investigate or prosecute any alcohol or drug abuse patient.[facility] HospitalIn the event this information is protected by the Federal Confidentiality of Alcohol and Drug Abuse Patient Records regulations: The Federal rules restrict any use of the information to criminally investigate or prosecute any alcohol or drug abuse patient.[facility] HospitalIn the event this information is protected by the Federal Confidentiality of Alcohol and Drug Abuse Patient Records regulations: The Federal rules restrict any use of the information to criminally investigate or prosecute any alcohol or drug abuse patient.[facility] HospitalIn the event this information is protected by the Federal Confidentiality of Alcohol and Drug Abuse Patient Records regulations: The Federal rules restrict any use of the information to criminally investigate or prosecute any alcohol or drug abuse patient.[facility] HospitalIn the event this information is protected by the Federal Confidentiality of Alcohol and Drug Abuse Patient Records regulations: The Federal rules restrict any use of the information to criminally investigate or prosecute any alcohol or drug abuse patient.[facility] HospitalIn the event this information is protected by the Federal Confidentiality of Alcohol and Drug Abuse Patient Records regulations: The Federal rules restrict any use of the information to criminally investigate or prosecute any alcohol or drug abuse patient.[facility] HospitalIn the event this information is protected by the Federal Confidentiality of Alcohol and Drug Abuse Patient Records regulations: The Federal rules restrict any use of the information to criminally investigate or prosecute any alcohol or drug abuse patient.[facility] HospitalIn the event this information is protected by the Federal Confidentiality of Alcohol and Drug Abuse Patient Records regulations: The Federal rules restrict any use of the information to criminally investigate or prosecute any alcohol or drug abuse patient.[facility] HospitalIn the event this information is protected by the Federal Confidentiality of Alcohol and Drug Abuse Patient Records regulations: The Federal rules restrict any use of the information to criminally investigate or prosecute any alcohol or drug abuse patient.[facility] HospitalIn the event this information is protected by the Federal Confidentiality of Alcohol and Drug Abuse Patient Records regulations: The Federal rules restrict any use of the information to criminally investigate or prosecute any alcohol or drug abuse patient.[facility] HospitalIn the event this information is protected by the Federal Confidentiality of Alcohol and Drug Abuse Patient Records regulations: The Federal rules restrict any use of the information to criminally investigate or prosecute any alcohol or drug abuse patient.[facility] HospitalIn the event this information is protected by the Federal Confidentiality of Alcohol and Drug Abuse Patient Records regulations: The Federal rules restrict any use of the information to criminally investigate or prosecute any alcohol or drug abuse patient.[facility] HospitalIn the event this information is protected by the Federal Confidentiality of Alcohol and Drug Abuse Patient Records regulations: The Federal rules restrict any use of the information to criminally investigate or prosecute any alcohol or drug abuse patient.[facility] HospitalIn the event this information is protected by the Federal Confidentiality of Alcohol and Drug Abuse Patient Records regulations: The Federal rules restrict any use of the information to criminally investigate or prosecute any alcohol or drug abuse patient.[facility] HospitalIn the event this information is protected by the Federal Confidentiality of Alcohol and Drug Abuse Patient Records regulations: The Federal rules restrict any use of the information to criminally investigate or prosecute any alcohol or drug abuse patient.[facility] HospitalIn the event this information is protected by the Federal Confidentiality of Alcohol and Drug Abuse Patient Records regulations: The Federal rules restrict any use of the information to criminally investigate or prosecute any alcohol or drug abuse patient.[facility] HospitalIn the event this information is protected by the Federal Confidentiality of Alcohol and Drug Abuse Patient Records regulations: The Federal rules restrict any use of the information to criminally investigate or prosecute any alcohol or drug abuse patient.[facility] HospitalIn the event this information is protected by the Federal Confidentiality of Alcohol and Drug Abuse Patient Records regulations: The Federal rules restrict any use of the information to criminally investigate or prosecute any alcohol or drug abuse patient.[facility] HospitalIn the event this information is protected by the Federal Confidentiality of Alcohol and Drug Abuse Patient Records regulations: The Federal rules restrict any use of the information to criminally investigate or prosecute any alcohol or drug abuse patient.[facility] HospitalIn the event this information is protected by the Federal Confidentiality of Alcohol and Drug Abuse Patient Records regulations: The Federal rules restrict any use of the information to criminally investigate or prosecute any alcohol or drug abuse patient.[facility] HospitalIn the event this information is protected by the Federal Confidentiality of Alcohol and Drug Abuse Patient Records regulations: The Federal rules restrict any use of the information to criminally investigate or prosecute any alcohol or drug abuse patient.[facility] HospitalIn the event this information is protected by the Federal Confidentiality of Alcohol and Drug Abuse Patient Records regulations: The Federal rules restrict any use of the information to criminally investigate or prosecute any alcohol or drug abuse patient.[facility] HospitalIn the event this information is protected by the Federal Confidentiality of Alcohol and Drug Abuse Patient Records regulations: The Federal rules restrict any use of the information to criminally investigate or prosecute any alcohol or drug abuse patient.[facility] HospitalIn the event this information is protected by the Federal Confidentiality of Alcohol and Drug Abuse Patient Records regulations: The Federal rules restrict any use of the information to criminally investigate or prosecute any alcohol or drug abuse patient.[facility] HospitalIn the event this information is protected by the Federal Confidentiality of Alcohol and Drug Abuse Patient Records regulations: The Federal rules restrict any use of the information to criminally investigate or prosecute any alcohol or drug abuse patient.[facility] HospitalIn the event this information is protected by the Federal Confidentiality of Alcohol and Drug Abuse Patient Records regulations: The Federal rules restrict any use of the information to criminally investigate or prosecute any alcohol or drug abuse patient.[facility] HospitalIn the event this information is protected by the Federal Confidentiality of Alcohol and Drug Abuse Patient Records regulations: The Federal rules restrict any use of the information to criminally investigate or prosecute any alcohol or drug abuse patient.[facility] Reason for Visit (unrecogniz ed section and content) Reason Comments Physical Therapy Specialty Diagnoses / Procedures Referred By Gustavo salazar Referred To Contact [facility] Diagnoses Follow-up examination after colorectal surgery Procedures CONSULT TO PHYSICAL THERAPY PHYSICAL THERAPY EVALUATION HIGH COMPLEX [address] [place] [address] [place] [address] [facility] [place] [address] [place] [address] Referral ID Status Reason Start Date Expiration Date Visits Requested Visits Authorized [id number] Authorized Auto-Generat ed Referral 01/04/2022 11/05/2022 30 30 Reason Comments Refill Request dexlansoprazole Reason Comments Established Patient Follow-Up Reason Comments Post Op Reason Comments Established Patient Reason Comments Appointment for script refill Reason Comments Gastroparesis 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 PA [...] ESOPHAGUS DOUBLE CONTRAST STUDY Winston Hannah, [place] [address] Xr Imaging Referral ID Status Reason Start Date Expiration Date V isits Requested Visits Authorized [id number] Closed Auto-Generate d Referral 11/17/2022 12/17/2023 1 [...] ABD & [place] [address] [place] [address] [address] Imaging Referral ID Status Reason Start Date Expiration Date V isits Requested Visits Authorized [id number] Closed Auto-Generate d Referral 07/28/2022 11/05/2022 2 [...] By Contac t Referred To Contact Diagnoses Nebo grade D esophagitis Early satiety Unintentional weight loss Gastroparesis Procedures DIAGNOSTIC UPPER ENDOSCOPY IN ESOPHAGOGASTRODUODENOSCOPY TRANSORAL DIAGNOSTIC Padmaja Llamas MD, PhD [address] [place] [address] [address] [place] [address] Referral ID Status Reason Start Date Expiration Date V isits Requested Visits Authorized [id number] New Request 03/06/2024 03/31/2025 1 1 Specialty Diagnoses / Procedures Referred By Contac t Referred To Contact Orthopedics / ORTHOPAEDIC SURGERY Diagnoses shoulder pain right pt will hand carry MRI Procedures POLI ACUTE Self Ryan Lynne MD [address] [place] [address] Referral ID Status Reason Start Date Expiration Date V isits Requested Visits Authorized [id number] Closed Financial Clearance Not Required 09/06/2020 10/05/2020 99 99 Care Teams (unrecognized sec tion and content) Team Status: Active Member Role Status Dates Shannon Gómez , DO Primary Care Provider Active Team Status: Inactive Member Role Status Dates Shannon Gómez DO Primary Care Provider Active Niecy Duron PA-C Attending Provider Active Food Order Delivery Runner Relationship Specialty Start Date End Date Eliceo Gómez Jr. [address] [place] [address] PCP - General Family Practice 10/14/20 Food Order Delivery Runner Relationship Specialty Start Date End Date Eliceo Gómez Jr. [address] [place] [address] PCP - General Family Practice 10/14/20 Food Order Delivery Runner Relationship Specialty Start Date End Date Eliceo Gómez Jr. [address] [place] [address] PCP - General Family Practice 10/14/20 Food Order Delivery Runner Relationship Specialty Start Date End Date Eliceo Gómez Jr. [address] [place] [address] PCP - General Family Practice 10/14/20 Food Order Delivery Runner Relationship Specialty Start Date End Date Eliceo Gómez Jr. [address] [place] [address] PCP - General Family Practice 10/14/20 Food Order Delivery Runner Relationship Specialty Start Date End Date Dalia Eliceo Lugo [address] [place] [address] PCP - General Family Practice 10/14/20 Gwendolyn Stroud [address] [place] [address] Family Practice 03/14/22 Food Order Delivery Runner Relationship Specialty Start Date End Date StephonjeromeEliceo randolph JrReno [address] [place] [address] PCP - General Family Practice 10/14/20 Gwendolyn Stroud [address] [place] [address] Family Practice 03/14/22 Food Order Delivery Runner Relationship Specialty Start Date End Date StephonEliceo ahuja Parish [address] [place] [address] PCP - General Family Practice 10/14/20 Gwendolyn Stroud [address] [place] [address] Family Practice 03/14/22 Food Order Delivery Runner Relationship Specialty Start Date End Date StephonEliceo ahuja Jr. [address] [place] [address] PCP - General Family Practice 10/14/20 Gwendolyn Stroud [address] [place] [address] Family Practice 03/14/22 Food Order Delivery Runner Relationship Specialty Start Date End Date StephonEliceo ahuja Jr. [address] [place] [address] PCP - General Family Practice 10/14/20 Gwendolyn Stroud [address] [place] [address] Family Practice 03/14/22 Food Order Delivery Runner Relationship Specialty Start Date End Date Eliceo Gómez Jr. [address] [place] [address] PCP - General Family Practice 10/14/20 Gwendolyn Stroud [address] [place] [address] Family Practice 03/14/22 Food Order Delivery Runner Relationship Specialty Start Date End Date Eliceo Gómez Jr. [address] [place] [address] PCP - General Family Practice 10/14/20 Gwendolyn Stroud, PAINT ROLLER 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 Family Practice 03/14/22 Food Order Delivery Runner Relationship Specialty Start Date End Date Eliceo Gómez Jr. [address] [place] [address] PCP - General Family Practice 10/14/20 Gwendolyn Stroud PAINT ROLLER 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 Family Practice 03/14/22 Food Order Delivery Runner Relationship Specialty Start Date End Date StephonEliceo ahuja Jr. [address] [place] [address] PCP - General Family Practice 10/14/20 Gwendolyn Stroud, PAINT ROLLER 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 Family Practice 03/14/22 Food Order Delivery Runner Relationship Specialty Start Date End Date Eliceo Gómez Jr. [address] [place] [address] PCP - General Family Practice 10/14/20 Gwendolyn Stroud, PAINT ROLLER 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 Family Practice 03/14/22 Food Order Delivery Runner Relationship Specialty Start Date End Date Eliceo Gómez Jr. [address] [place] [address] PCP - General Family Medicine 10/14/20 Gwendolyn Stroud, PAINT ROLLER 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 Family Medicine 03/14/22 Food Order Delivery Runner Relationship Specialty Start Date End Date Eliceo Gómez Jr. [address] [place] [address] PCP - General Family Medicine 10/14/20 Gwendolyn Stroud, PAINT ROLLER 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 Family Medicine 03/14/22 Food Order Delivery Runner Relationship Specialty Start Date End Date Eliceo Gómez Jr. [address] [place] [address] PCP - General Family Medicine 10/14/20 Gwendolyn Stroud, PAINT ROLLER 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 Family Medicine 03/14/22 Food Order Delivery Runner Relationship Specialty Start Date End Date Eliceo Gómez Jr. [address] [place] [address] PCP - General Family Medicine 10/14/20 Gwendolyn Stroud, PAINT ROLLER 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 Family Medicine 03/14/22 Team Status: Inactive Member Role Status Dates Shannon Gómez , Primary Care Provider Active Beto Snyder MD Attending Provider Active Food Order Delivery Runner Relationship Specialty Start Date End Date Eliceo Gómez Jr. [address] [place] [address] PCP - General Family Medicine 10/14/20 Gwendolyn Stroud CNP [address] [place] [address] Family Medicine 03/14/22 Food Order Delivery Runner Relationship Specialty Start Date End Date Eliceo Gómez Jr. [address] [place] [address] PCP - General Family Medicine 10/14/20 Gwendolyn Stroud CNP [address] [place] [address] Family Medicine 03/14/22 Food Order Delivery Runner Relationship Specialty Start Date End Date Eliceo Gómez Jr. [address] [place] [address] PCP - General Family Medicine 10/14/20 Gwendolyn Stroud CNP [address] [place] [address] Family Medicine 03/14/22 Food Order Delivery Runner Relationship Specialty Start Date End Date Eliceo Gómez Jr. [address] [place] [address] PCP - General Family Medicine 10/14/20 Gwendolyn Stroud CNP [address] [place] [address] Family Medicine 03/14/22 Food Order Delivery Runner Relationship Specialty Start Date End Date Eliceo Gómez Jr. [address] [place] [address] PCP - General Family Medicine 10/14/20 Gwendolyn Stroud, KWESI [address] [place] [address] Family Medicine 03/14/22 Food Order Delivery Runner Relationship Specialty Start Date End Date Eliceo Gómez Jr. [address] [place] [address] PCP - General Family Medicine 10/14/20 Gwendolyn Stroud, KWESI [address] [place] [address] Family Medicine 03/14/22 Food Order Delivery Runner Relationship Specialty Start Date End Date Eliceo Gómez Jr. [address] [place] [address] PCP - General Family Medicine 10/14/20 Gwendolyn Stroud CNP [address] [place] [address] Family Medicine 03/14/22 Food Order Delivery Runner Relationship Specialty Start Date End Date Eliceo Gómez Jr. [address] [place] [address] PCP - General Family Medicine 10/14/20 Gwendolyn Stroud, PAINT ROLLER 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 [address] [place] [address] Family Medicine 03/14/22 Food Order Delivery Runner Relationship Specialty Start Date End Date Eliceo Gómez Jr. [address] [place] [address] PCP - General Family Medicine 10/14/20 Gwendolyn Stroud, KWESI [address] [place] [address] Family Medicine 03/14/22 Food Order Delivery Runner Relationship Specialty Start Date End Date Eliceo Gómez Jr. [address] [place] [address] PCP - General Family Medicine 10/14/20 Gwendolyn Stroud CNP [address] [place] [address] Family Medicine 03/14/22 Food Order Delivery Runner Relationship Specialty Start Date End Date Eliceo Gómez Jr. [address] [place] [address] PCP - General Family Medicine 10/14/20 Gwendolyn Stroud CNP [address] [place] [address] Family Medicine 03/14/22 Team Status: Inactive Member Role Status Henrietta Gómez DO Primary Care Provider Active Beto Cartagena MD Attending Provider Active Food Order Delivery Runner Relationship Specialty Start Date End Date Eliceo Gómez Jr. [address] [place] [address] PCP - General Family Medicine 10/14/20 Gwendolyn Stroud CNP [address] [place] [address] Family Medicine 03/14/22 Food Order Delivery Runner Relationship Specialty Start Date End Date Eliceo Gómez Jr. [address] [place] [address] PCP - General Family Medicine 10/14/20 Gwendolyn Stroud CNP [address] [place] [address] Family Medicine 03/14/22 Food Order Delivery Runner Relationship Specialty Start Date End Date Eliceo Gómez Jr. [address] [place] [address] PCP - General Family Medicine 10/14/20 Gwendolyn Stroud CNP [address] [place] [address] Family Medicine 03/14/22 Food Order Delivery Runner Relationship Specialty Start Date End Date Eliceo Gómez Jr. [address] [place] [address] PCP - General Family Medicine 10/14/20 Gwendolyn Stroud CNP [address] [place] [address] Family Medicine 03/14/22 Food Order Delivery Runner Relationship Specialty Start Date End Date Eliceo Gómez Jr. [address] [place] [address] PCP - General Family Medicine 10/14/20 Gwendolyn Stroud CNP [address] [place] [address] Family Medicine 03/14/22 Food Order Delivery Runner Relationship Specialty Start Date End Date Eliceo Gómez Jr. [address] [place] [address] PCP - General Family Medicine 10/14/20 Gwendolyn Stroud CNP [address] [place] [address] Family Medicine 03/14/22 Food Order Delivery Runner Relationship Specialty Start Date End Date Eliceo Gómez Jr. [address] [place] [address] PCP - General Family Medicine 10/14/20 Gwendolyn Stroud CNP [address] [place] [address] Family Medicine 03/14/22 Food Order Delivery Runner Relationship Specialty Start Date End Date Eliceo Gómez Jr. [address] [place] [address] PCP - General Family Medicine 10/14/20 Gwendolyn Stroud, KWESI [address] [place] [address] Family Medicine 03/14/22 Team Status: Inactive Member Role Status Henrietta Gómez , DO Primary Care Provider Active Anibal Valle , DO Emergency Provider Active Food Order Delivery Runner Relationship Specialty Start Date End Date Eliceo Gómez Jr. [address] [place] [address] PCP - General Family Medicine 10/14/20 Gwendolyn Stroud, KWESI [address] [place] [address] Family Medicine 03/14/22 Food Order Delivery Runner Relationship Specialty Start Date End Date Eliceo Gómez Jr. [address] [place] [address] PCP - General Family Medicine 10/14/20 Gwendolyn Stroud, KWESI [address] [place] [address] Family Medicine 03/14/22 Food Order Delivery Runner Relationship Specialty Start Date End Date Eliceo Gómez Jr. [address] [place] [address] PCP - General Family Medicine 10/14/20 Gwendolyn Stroud CNP [address] [place] [address] Family Medicine 03/14/22 Food Order Delivery Runner Relationship Specialty Start Date End Date Eliceo Gómez Jr., DO [address] [place] [address] PCP - General Family Medicine 10/14/20 Gwendolyn Srtoud, PAINT ROLLER 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 [address] [place] [address] Family Medicine 03/14/22 Food Order Delivery Runner Relationship Specialty Start Date End Date Eliceo Gómez Jr., DO [address] [place] [address] PCP - General Family Medicine 10/14/20 Gwendolyn Stroud, PAINT ROLLER 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 [address] [place] [address] Family [facility] [place] 03/14/22 Food Order Delivery Runner Relationship Specialty Start Date End Date Eliceo Gómez Jr., [address] [place] [address] PCP - General Family Medicine 12/11/19 Team Status: Inactive Member Role Status Dates Shannon Gómez DO Primary Care Provider Active Start: November 23, 2023 End: November 23, 2023 Eagle Vazquez DO Attending Provider Active Start : November 23, 2023 End: November 23, 2023 Food Order Delivery Runner Relationship Specialty Start Date End Date Eliceo Gómez Jr., [address] [place] [address] PCP - General Family Medicine 12/11/19 [facility] [address] [facility] [address] [phone] (Work) Consulting Physician Behavioral Health 12/20/23 Food Order Delivery Runner Relationship Specialty Start Date End Date Eliceo Gómez Jr., DO [address] [place] [address] PCP - General Family Medicine 10/14/20 Gwendolyn Stroud PAINT ROLLER 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 [address] [place] [address] Family Medicine 03/14/22 Food Order Delivery Runner Relationship Specialty Start Date End Date Eliceo Gómez Jr., DO [address] [place] [address] PCP - General Family Medicine 12/11/19 [facility] [address] [facility] [address] [phone] (Work) Consulting Physician Behavioral Health 12/20/23 Food Order Delivery Runner Relationship Specialty Start Date End Date Eliceo Gómez Jr., DO [address] [place] [address] PCP - General Family Medicine 10/14/20 Gwendolyn Stroud, KWESI [address] [place] [address] Family Medicine 03/14/22 Food Order Delivery Runner Relationship Specialty Start Date End Date Eliceo Gómez Jr., DO [address], [address] [place] [address] PCP - General Family Medicine 12/11/19 [facility] [address] [facility] [address] [place] [address] Consulting Physician Behavioral Health 12/20/23 Food Order Delivery Runner Relationship Specialty Start Date End Date HernandeztomasaEliceo Jr., DO [address] [place] [address] PCP - General Family Medicine 10/14/20 Gwendolyn Stroud CNP [address] [place] [address] Family Medicine 03/14/22 Food Order Delivery Runner Relationship Specialty Start Date End Date StephonjerometomasaEliceo Jr., DO [address] [place] [address] PCP - General Family Medicine 10/14/20 Gwendolyn Stroud CNP [address] [place] [address] Family Medicine 03/14/22 Food Order Delivery Runner Relationship Specialty Start Date End Date StephonleighaEliceo Jr., DO [address] [place] [address] PCP - General Family Medicine 10/14/20 Gwendolyn Stroud CNP [address] [place] [address] Family Medicine 03/14/22 Food Order Delivery Runner Relationship Specialty Start Date End Date Eliceo Gómez Jr., DO [address] [place] [address] PCP - General Family Medicine 10/14/20 Gwendolyn Stroud CNP [address] [place] [address] Family Medicine 03/14/22 Food Order Delivery Runner Relationship Specialty Start Date End Date Eliceo Gómez Jr., [address] [place] [address] PCP - General Family Medicine 10/14/20 Gwendolyn Stroud, PAINT ROLLER 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 [address] [place] [address] Family Medicine 03/14/22 Food Order Delivery Runner Relationship Specialty Start Date End Date Shannon Gómez DO [address] [place] [address] PCP - General Family Medicine 11/14/23 Team Status: Inactive Member Role Status Henrietta Gómez DO Primary Care Provider Active Start: April 30, 2024 End: April 30, 2024 Sade Felix DPM MS Attending Provider Active Start: April 30, 2024 End: April 30, 2024 Team Status: Inactive Member Role Status Dates Sade Felix DPM MS Attending Provider Active Start: May 27, 2024 End: May 27, 2024 Food Order Delivery Runner Relationship Specialty Start Date End Date Eliceo Gómez Jr., DO [address] [place] [address] PCP - General Family Medicine 10/14/20 Gwendolyn Stroud, PAINT ROLLER 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 [address] [place] [address] Family Medicine 03/14/22 Food Order Delivery Runner Relationship Specialty Start Date End Date Eliceo Gómez Jr., [address] [place] [address] PCP - General Family Medicine 10/14/20 Goals (unrecognized section and content) Goals may be documented in a n alternate section Scheduled Active and Recently Administ ered Medications (unrecognized section and content) Medication Order 08/10/2023 08/11/2023 08/12/2023 Acetaminophen (OFIRMEV) IVPB 1,000 mg (COMPLETED) 1,000 mg, Intravenous, Administer over 15 Minutes, On 08/12/23 at 0632, ONCE, 1 dose 0614 (New Bag - Prov ider: Jaren Lopez, RN)[id number] (Stopped - Provider: Monserrat Scales RN) [...] BE BASED ON THE PRIMARY CLINICAL RECORDS. [employer] provides no warranty or guarantee of the accuracy or completeness of information in this document.
--- NOTE | 2024-08-28 10:01 | P.CN_ITS ---
Consult Note: HPI Data of Consult Patient: known to practice within the last 3 years Consult date: 03/04/24 Requesting Physician: Monica Burns NP Primary Care Provider: Isatu CASTRO Consult Narrative Reason for consult: neck pain and back pain Narrative: 53yof who presents for assessment of chronic neck, mid back, and low back pain. continues in series of provider directed home exercises >6 weeks, with minimal benefit. chronic low back pain without numbness tingling weakness of legs. Hx of mild facet arthropathy and degenerative changes on lumbar xray. Recently underwent bilateral L4-5 L5-S1 RFA on 07/22/24 since the procedure she has had increased low back pain and aching, pain unresponsive to ice, ibuprofen, TENS, flexeril 10mg TID, tylenol, ibuprofen. denies numbness tingling weakness and loss of bowel or bladder. longstanding hx of neck pain post neck surgery. previously underwent right and left C2-3 C3-4 RFA with mild relief and recently underwent left C3/4 C4/5 TFESI with 30% improvement ongoing. pain today 5/10 throbbing burning in neck with numbness and tingling of bilateral arms. low back pain 8/10. her pain is increased with standing walking lying lifting activity and sleep. pain improved with sitting. cc:: CC: Monica Burns NP Review of Systems ROS Status of ROS 10 or more systems reviewed and unremark able except as noted in history and below Musculoskeletal Reports: back pain, neck pain and extremity pain PFSH [facility] Medical History (Updated 07/03/24 @ 13:25 by Monica Burns NP) Strain of muscle(s) and tendon(s) of peroneal muscle group at lower leg level, right leg, initial encounter ?S86.311A - Strain of muscle(s) and tendon(s) of peroneal muscle group at lower leg level, right leg, initial encounter (ICD-10) Pain in right ankle and joints of right foot ?M25.571 - Pain in right ankle and joints of right foot (ICD-10) Primary osteoarthritis, right ankle and foot ?M19.071 - Primary osteoarthritis, right ankle and foot (ICD-10) Overactive bladder ?N32.81 - Overactive bladder (ICD-10) Insomnia ?G47.00 - Insomnia, unspecified (ICD-10) Bipolar disorder ?F31.9 - Bipolar disorder, unspecified (ICD-10) Gastroparesis ?K31.84 - Gastroparesis (ICD-10) Panic attacks ?F41.0 - Panic disorder [episodic paroxysmal anxiety] (ICD-10) OCD (obsessive compulsive disorder) ?F42.9 - Obsessive-compulsive disorder, unspecified (ICD-10) COVID-19 ?U07.1 - COVID-19 (ICD-10) Migraine ?G43.909 - Migraine, unspecified, not intractable, without status migrainosus (ICD-10) Gastritis ?K29.70 - Gastritis, unspecified, without bleeding (ICD-10) GERD (gastroesophageal reflux disease) ?K21.9 - Gastro-esophageal reflux disease without esophagitis (ICD-10) Peroneal tendinitis ?M76.70 - Peroneal tendinitis, unspecified leg (ICD-10) Posterior tibial tendon dysfunction ?M76.829 - Posterior tibial tendinitis, unspecified leg (ICD-10) Painful orthopaedic hardware ?T84.84XA - Pain due to internal orthopedic prosthetic devices, implants and grafts, initial encounter (ICD-10) Post op infection ?T81.40XA - Infection following a procedure, unspecified, initial encounter (ICD-10) Restless leg syndrome ?G25.81 - Restless legs syndrome (ICD-10) Tibialis anterior tendon tear, traumatic ?S86.219A - Strain of muscle(s) and tendon(s) of anterior muscle group at lower leg level, unspecified leg, initial encounter (ICD-10) Osteoarthritis ?M19.90 - Unspecified osteoarthritis, unspecified site (ICD-10) Back pain ?M54.9 - Dorsalgia, unspecified (ICD-10) Sleep disorder ?G47.9 - Sleep disorder, unspecified (ICD-10) PTSD (post-traumatic stress disorder) ?F43.10 - Post-traumatic stress disorder, unspecified (ICD-10) Depression ?F32.A - Depression, unspecified (ICD-10) Anxiety ?F41.9 - Anxiety disorder, unspecified (ICD-10) Sleep apnea ?G47.30 - Sleep apnea, unspecified (ICD-10) Asthma ?J45.909 - Unspecified asthma, uncomplicated (ICD-10) Constipation ?K59.00 - Constipation, unspecified (ICD-10) High cholesterol ?E78.00 - Pure hypercholesterolemia, unspecified (ICD-10) Hypertension ?I10 - Essential (primary) hypertension (ICD-10) Female rectocele with enterocele ?N81.6 - Rectocele (ICD-10) ?K46.9 - Unspecified abdominal hernia without obstruction or gangrene (ICD- 10) 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 - Other specified functional intestinal disorders (ICD-10) Surgical History S/P foot surgery ?Z98.890 - Other specified postprocedural states (ICD-10) H/O cervical spine surgery ?Z98.890 - Other specified postprocedural states (ICD-10) S/P placement of nerve stimulator (01/02/24) ?Z96.82 - Presence of neurostimulator (ICD-10) S/P placement of nerve stimulator ?Z96.82 - Presence of neurostimulator (ICD-10) History of ankle surgery (11/13/23) ?Z98.890 - Other specified postprocedural states (ICD-10) H/O tooth extraction ?K08.409 - Partial loss of teeth, unspecified cause, unspecified class (ICD- 10) H/O foot surgery (05/12/23) ?Z98.890 - Other specified postprocedural states (ICD-10) History of appendectomy (1987) ?Z90.49 - Acquired absence of other specified parts of digestive tract (ICD- 10) History of colonoscopy ?Z98.890 - Other specified postprocedural states (ICD-10) History of colectomy (03/2022) ?Z90.49 - Acquired absence of other specified parts of digestive tract (ICD- 10) History of tonsillectomy and adenoidectomy ?Z90.89 - Acquired absence of other organs (ICD-10) History of hysterectomy (2014) ?Z90.710 - Acquired absence of both cervix and uterus (ICD-10) History of arthroplasty of right ankle ?Z98.890 - Other specified postprocedural states (ICD-10) History of repair of rotator cuff ?Z98.890 - Other specified postprocedural states (ICD-10) S/P ankle ligament repair (2020) ?Z98.890 - Other specified postprocedural states (ICD-10) Family History Other Family history of Alzheimer's disease Family history of coronary artery disease Family history of heart disease Family history of hypertension Social History Within the past year, how often did you have a drink containing alcohol: never Score interpretation: A score less than 3 is consistent with normal alcohol consumption. Smoking status: Never smoker Non-prescribed substance use: denies use Previous occupational history: [employer] Highest level of school completed/degree received: some college, no degree Little interest or pleasure in doing things: not at all Feeling down, depressed, or hopeless: not at all Feel stressed/tense/nervous/anxious/difficulty sleeping: only a little Due to disability, difficulty making decisions: No Do you think of yourself as: straight/heterosexual Gender Identity: female Meds Home Medications and Allergies Home Medications ?Medication ?Instructions ?Recorded ?Confirmed ?Type fremanezumab-vfrm 225 mg/1.5 mL 125 mg subcut .f20lucv 05/04/23 08/05/24 History subcutaneous auto-injector (Ajovy) ropinirole 1 mg tablet 1 mg PO QAM 05/04/23 08/05/24 History ropinirole 2 mg tablet 2 mg PO QPM 05/04/23 08/05/24 History fluticasone fur. 100 mcg-umeclid 1 inh inhalation Q24H 11/03/23 08/05/24 History 62.5 mcg-vilant 25 mcg inhalat.powder (Trelegy Ellipta) aripiprazole 300 mg suspension, 300 mg IM Q28D 05/17/24 08/05/24 History extended rel. intramuscular syringe (Lolis Rush) atenolol 50 mg tablet 50 mg PO Q24H 05/17/24 08/05/24 History cetirizine 10 mg tablet 10 mg PO DAILY 05/17/24 08/05/24 History ferrous sulfate 325 mg (65 mg 325 mg PO DAILY 05/17/24 08/05/24 History iron) tablet losartan 25 mg tablet 25 mg PO DAILY 05/17/24 08/05/24 History omeprazole 40 mg capsule,delayed 40 mg PO DAILY 05/17/24 08/05/24 History release cholecalciferol (vitamin D3) 125 125 mcg PO DAILY 90 days #90 caps 05/27/24 08/05/24 Rx mcg (5,000 unit) capsule acetaminophen 500 mg tablet mg 08/01/24 History baclofen 10 mg tablet 10 mg PO TID PRN muscle spasm 08/01/24 08/05/24 History celecoxib 200 mg capsule mg 08/01/24 History daridorexant 50 mg tablet (Quviviq) mg PO .hs 08/01/24 History ibuprofen 800 mg tablet 800 mg PO TID PRN pain 08/01/24 08/05/24 History methylphenidate HCl 54 mg 54 mg PO DAILY 08/01/24 08/05/24 History tablet,extended release 24 hr (Concerta) Allergies Allergy/AdvReac Type Severity Reaction Status Date / Time risperidone (From Risperdal) AdvReac Mild breast Verified 08/05/24 07:58 nipples leak Exam Constitutional Documenting provider has reviewed patient's vital signs: yes Common normals: no apparent distress, oriented x3, healthy appearing, alert and well nourished General appearance: cooperative HENHI Common normals: normocephalic, hearing grossly normal bilaterally and moist oral mucous membranes Head and scalp: normocephalic Eye Common normals: PERRL Pupil: PERRL Neck & C-Spine Common normals: full ROM General: normal visual inspection Cervical spine: cervical ROM abnormal, pain with cervical ROM and cervical spine tenderness Other: positive sprulings strength 4/5 in RUE 5/5 in LUE Chest Common normals: inspection of chest normal Respiratory Common normals: normal respiratory effort, no retractions and no use of accessory muscles Back & Pelvis Lumbar spine/lower back: ROM limited, pain with ROM and straight leg raise negative bilaterally Sacroiliac joints: SI joint(s) abnormal Other: increased pain with flexion extension and rotation bilateral SIJ positive arcelia(patricks), gaenslens, thigh thrust, compression test strength 4/5 in RLE 5/5 in LLE Extremity Common normals: normal to inspection and full ROM Neuro Common normals: oriented x3, CN's II-XII intact bilaterally, moves all extremities, no focal motor deficits, no sensory deficits noted and deep tendon reflexes 2+ bilaterally Sensorium/orientation: alert Motor exam: no movement abnormalities noted and strength abnormal Psych Common normals: mental status grossly normal, thought process normal, cooperative, affect normal, speech normal and activity/motor behavior normal Speech: normal speech Thought process: normal thought process Results Additional Findings Additional findings: If on a controlled substance or opioids, I have checked an [place] report on this patient and there are no aberrancies noted in the prescribing history.??If on a controlled substance or opioid a drug screen was completed and reviewed within the last year, and if there has not been a drug screen completed we ordered one today to monitor higher risk, state monitored pain medication use. As part of providing excellent, safe, comprehensive care, the following was completed at our patient's visit: 1. A medication reconciliation and review to ensure accurate knowledge of current/active medications, including asking our patients to inform us about any [id number] medications or herbal remedies/nutritional supplements/alternative remedies. 2. A review to specifically ensure our patients have had annual screening for screening for depression, screening for tobacco use, and screening for unhealthy alcohol use. For concerning screenings had a discussion with the patient, provided patient education, and recommended follow-up with primary care provider when appropriate. If patient noted with a risk of falling, they received education on strength, gait, and balance training to prevent future risk of falling. Assessment and Plan Assessment and Plan (1) Lumbar spondylosis: (2) Failed neck syndrome: (3) Cervical radiculopathy: (4) Cervical spondylosis: (5) Thoracic back pain: (6) Myofascial pain: Plan update lumbar MRI without contrast to assess lumbar spondylosis and chronic low back pain unresponsive to above listed medications, heat/ice, HEP greater than 6 weeks. essential for interventional therapy vs NS consult NS consult for chronic neck pain, cervical radiculopathy, cervical spondylosis continue baclofen 10mg daily PRN continue PRN motrin continue NNCP f/u to review lumbar MRI
== END 2024-08-28 09:26 | disposition home or self-care (01) ==
LOC: PM 09:26
PROVIDERS: PCP Family Medicine; Visit Provider Nurse Practitioner
DX: M47.816 Spondylosis without myelopathy or radiculopathy, lumbar region (principal); M96.1 Postlaminectomy syndrome, not elsewhere classified; M54.12 Radiculopathy, cervical region; M47.812 Spondylosis without myelopathy or radiculopathy, cervical region; M54.6 Pain in thoracic spine; M79.18 Myalgia, other site
CPT/HCPCS: G0463

== ENCOUNTER 2024-10-01 07:36 | Outpatient (OUT) | payer MEDICARE, MEDICAID, SELFPAY ==
--- NOTE | 2024-10-01 07:41 | XR_ITS ---
The [address] [address] Patient Name: ELSIE FUENTES MRN: [id number] date: 1970 Sex: F Assigned Patient Location: [facility] Current Patient Location: [facility] Accession/Order Number: [id number] Exam Date: 10/01/2024 07:45 Report Date: 10/03/2024 09:25 At the request of: SADE WILDE Procedure: XR foot RT min 3V PROCEDURE: XR foot RT min 3V HISTORY: Right Foot Pain M79.671 COMPARISON: XR foot right 07/30/2024 FINDINGS: BONES:Prior calcaneal osteotomy and repair. Mechanical fusion of the talocalcaneal and talonavicular joints via lag screws. Osteotomy and wedge placement within the medial cuneiform. Osteotomy and single screw repair of head of first metatarsal. SOFT TISSUES:No visible soft tissue swelling. EFFUSION:None visible. OTHER: Negative. XR/XR foot RT min 3V IMPRESSION: 1. Stable surgical changes without evidence of hardware failure or change in alignment. 2. No acute bone abnormality. Electronically authenticated by: ZAIDA ACOSTA Date: 10/03/2024 09:25
--- OUTSIDE RECORDS SUMMARY | 2024-10-01 07:42 | XMS_ITS | CCD ---
Author Organization [facility] ion [facility] Care Team Providers Care Die Maintenance Technician Name Role Phone PARISH GÓMEZ Primary Care Unavailable Eliceo Gómez Jr. Primary Care Provider Gwendolyn Stroud Unavailable Maximus OROSCO, Gwendolyn Unavailable [phone] Beto Snyder Unavailable Tita Daugherty Unavailable Erica Kingston Unavailable Eliceo Gómez Unavailable Unavailable Unavailable Allison Arita Unavailable Eliceo Gómez Jr. Primary Care Provider Maximus OROSCO Gwendolyn Unavailable [phone] Eliceo Gómez Unavailable DO Shannon Gómez Primary Care Provider [phone] MD Beto Snyder Attending Provider Eliceo Gómez Jr. Primary Care Provider Maximus OROSCO Gwendolyn Unavailable Beto Cartagena Unavailable MD Beto Cartagena Attending Provider [phone] WINSTON HANNAH Attending Unavailable WINSTON HANNAH Referring [...] KAREEM, NIECY Attending Unavailable KAFTAN, DR Isatu LUOG Primary Care Unavailable ZIEBER, DR ZAIDA Ellis [...] ELIAS ., DR ELDER Rios Consulting Unavailable RHODELIA, DR NICKI Gale Consulting Unavailable SADE FELIX Consulting Unavailable EDUARDO ., NANCY LAMA Consulting Unavailable GEMBUS, DAWNA Consulting Unavailable HIGHLANDER, SADE Kenny Consulting Unavailable HIGHLROBERTA, SADE Kenny Attending Unavailable HIGHLROBERTA, SADE Kenny Admitting Unavailable KAFTTOMASA, DR Isatu LUGO Primary Care Unavailable KAFTAN, [...] Gómez Jr, Dr. Eliceo Lugo Primary Care Ejssica vailable Héctor, Dr. Dipti Fam Referring Unava ilaraceli Gómez Jr, Dr. Eliceo Lugo Primary Care Jessica vailable Héctor, Dr. Ditpi Fam Attending Unava ilaraceli Gómez Jr., DO, George [facility] eduardo PAULINE CHRISTENSEN Attending Unavailable [...] ELICEO Ellis Primary Care Unavailable WERNING, CULLEN Zhou Attending Unavailable KAFTAN JR, ELICEO Ellis Referring Unavailable KAFTAN JR, ELICEO Ellis Primary Care Unavailable WERNING, CULLEN W Admitting Unavailable WERBELEN, CULLEN W Attending Unavailable EVERETTE, CULLEN W Referring Unavailable KAFTAN JR, ELICEO Ellis Primary Care Unavailable WANG, PAM Referring Unavailable KAJEROMEAN , ELICEO LUGO Primary Care Unavail able Kaleigha Jenkins., DOEliceo Parish Primary Care Provi jose eduardo KALEIGHA JENKINS, ELICEO LUGO Primary Care Unavail [...] , ELICEO LUGO Primary Care Unavail able KAFTAN JR, ELICEO LUGO Primary Care Unavail able KAFTAN JR, ELICEO LUGO Primary Care Unavail able KAFTAN JR, ELICEO LUGO Primary Care Unavail able WANG, PAM Attending Unavailable KAFTAN , ELICEO LUGO Primary Care Unavail able WANG, PAM Attending Unavailable WANG, PAM Referring Unavailable HERNANDEZAN , ELICEO LUGO Primary Care Unavail able DORIS ARIAS Attending Unavailable Shannon Gómez DO Primary Care Provider DO Shannon Gómez Primary Care Provider [phone] FADUMO Felix Attending Provider [phone] Sade Felix Attending Unavailable Sade Felix Admitting Unavailable Shannon Gómez Primary Care Unavailable Eagle Vazquez Attending Unavailable Eagle Vazquez Admitting Unavailable Sade Felix Attending Unavailable Sade Felix Admitting Unavailable Shannon Gómez Primary Care Unavailable Anibal Valle Attending Unavailable Anibal Valle Admitting Unavailable Shannon Gómez Primary Care Unavailable Brandyn BENSON, Ace Art Attending Unavailable Brandyn BENSON, Andrius Art Attending Unavailable Brandyn BENSON, Terryrius rAt Attending Unavailable Brandyn BENSON, Andrius Art Attending Unavailable Giedraitis , Andrius Kaelyn Attending Unavailable Giedraitis , Andrius Vytautalvin Attending Unavailable Giedraitis , Andrius Vytautalvin Attending Unavailable Giedraitis , Andrius Vytautalvin Attending Unavailable Giedraitis , Andrius Vytautalvin Attending Unavailable Giedraitis , Andrius Vytnellie Attending Unavailable Giedraitis , Andrius Vytnellie Attending Unavailable Giedraitis , Andrius Vytnellie Attending Unavailable Giedraitis , Andrius Shahlaytnellie Attending Unavailable Unavailable Primary Care Provider UnavailMERISSA Lim Attending Unavailable LI, NA Referring Unavailable Shannon GÓMEZ Primary Care Unavailable Shannon GÓMEZ Primary Care Unavailable Shannon GÓMEZ Referring Unavailable RADHA CARDENAS Attending Unavailable Shannon GÓMEZ Primary Care Unavailable Shannon GÓMEZ Referring Unavailable RADHA CARDENAS Attending Unavailable Shannon GÓMEZ Primary Care Unavailable Shannon GÓMEZ Referring Unavailable RADHA CARDENAS Attending Unavailable Shannon GÓMEZ Primary Care Unavailable SELF, SELF Referring Unavailable MILAGROS FRANCO Attending Unavailab le LI, NA Referring Unavailable Shannon GÓMEZ Primary Care Unavailable FARHAD, NA Referring Unavailable Shannon GÓMEZ Primary Care Unavailable RADHA CARDENAS Attending Unavailable Eliceo Gómez DO Primary Care Provider Eliceo Gómez DO Unavailable [phone] Dipti Acevedo DO Unavailable [phone] CHRISTENSEN, AJAZ Referring Unavailable CHRISTENSEN, AJAZ Referring Unavailable CHRISTENSEN, AJAZ Attending Unavailable , SANGITAAZ Attending Unavailable , SANGITAAZ Attending Unavailable DIPTI ACEVEDO Attending Unavailable RON KING Attending Unavailable EAGLE VAZQUEZ Attending Unavailable ELICEO GÓMEZ Referring Unavailable JES MARTINEZ Attending Unavailable RON KING Attending Unavailable ELICEO GÓMEZ Attending Unavailable ELICEO GÓMEZ Referring Unavailable EAGLE VAZQUEZ Attending Unavailable ELICEO GÓMEZ Referring Unavailable DIPTI ACEVEDO Attending Unavailable EAGLE VAZQUEZ Attending Unavailable ELICEO GÓMEZ Attending Unavailable RON KING Attending Unavailable ELICEO GÓMEZ Referring Unavailable DIPTI ACEVEDO Attending Unavailable RON KING Attending Unavailable KAELICEO AHUJA Referring Unavailable KAFTAN, ELICEO Ellis Referring Unavailable KAFTANELICEO Attending Unavailable KAFTTOMASA, ELICEO Ellis Referring Unavailable KAFTAN, ELICEO Ellis Referring Unavailable KAFTAN, ELICEO Ellis Attending Unavailable DIPTI ACEVEDO Attending Unavailable RON KING Attending Unavailable PETITTCARMEN Gloria Attending Unavailable KAELICEO AHUJA Attending Unavailable NELSY SNYDER Attending Unavailable KAFTTOMASA, ELICEO Ellis Attending Unavailable KAFTTOMASA, ELICEO Ellis Referring Unavailable SIDNEY AMEZQUITA Attending Unavailable DALIA, ELICEO Ellis Referring Unavailable KAFTAN, ELICEO Ellis Referring Unavailable KAFTTOMASA, ELICEO Ellis Attending Unavailable RON KING Referring Unavailable LAFEAGLE MAR Referring Unavailable SIDNEY AMEZQUITA Attending Unavailable PETСВЕТЛАНА, CARMEN Guzman Attending Unavailable DIPTI ACEVEDO Attending Unavailable DIPTI ACEVEDO Attending Unavailable Allergies Allergy Classification Reported Allergen(s) Allergy Type Date of Onset Reaction(s) Facility risperiDONE (1 source) risperiDONE Drug Allergy 9 [facility] (20 sources) risperiDONE; Translations: [RisperDAL TABS] Drug Allergy 0 Intolerance, Other (See Comments) [facility] (1 source) oxyCODONE Drug Allergy [facility] (1 source) risperiDONE Drug Allergy [facility] (20 sources) POISON BRENDA EXTRACT; Translations: [POISON BRENDA EXTRACT] Drug Allergy 3 Rash [facility] (1 source) risperiDONE Drug Allergy 3 [facility] (9 sources) risperiDONE Drug Allergy 9 [facility] (1 source) POISON BRENDA; Translations: [POISON BRENDA] Propensity to adverse reactions to drug (disorder) 2 [facility] Repository Medications Current Medications Medication [...] on above: Take 2 tablets by mo [facility] every 6 hours as needed for pain. Take 2 tablets by mo [facility] every 6 hours as needed for pain for up to 7 days. acetaminophen 300 mg / codeine phosphate 30 mg oral tablet (8 sources) Opioid Agonist Start: 01-24-2024 take 1 tablet by mouth three times daily acetaminophen-co deine (TYLENOL-COD #3) 300-30 mg per tablet Take 1 tablet by mouth three times a day. 0 01/24/2024 Active Comment on above: Take 1 tablet by [facility] three times a day. acetaminophen 325 mg [...] every six hours as needed for pain Oxycodone-Acetaminophen 5-325 mg Tablet Discontinued 1 TAB PO Q6H as needed for Pain Scale 1 - 5 September 20, 2017 12:00am October 01, 2018 9:41am acyclovir 400 mg oral tablet (13 sources) Herpesvirus Nucleoside Analog DNA Polymerase Inhibitor, Herpes Simplex Virus Nucleoside Analog DNA Polymerase Inhibitor, Herpes Zoster Virus Nucleoside Analog DNA Polymerase Inhibitor Start: 11-29-2020 take 1 tablet by mouth every twelve hours [id number] actuat albuterol 0.09 mg/actuat metered dose inhaler (20 sources) beta2-Adrenergic Agonist Start: 07-11-2024 End: 10-19-2024 take 2 puff(s) by inhalation every four hours for wheezing albuterol HFA 90 mcg/act inhaler Indications: Mild intermittent asthma, unspecified whether complicated ([facility]/HCC) Inhale 2 puffs every 4 (four) hours if needed for wheezing 07/11/2024 10/19/2024 Active Start: 06-05-2023 End: 09-16-2024 take 1 puff(s) by inhalation every four to six hours as needed for wheezing Albuterol Sulfate 90 mcg/actuation HFA aerosol inhaler Discontinued 2 PUFF INHALATION EVERY 4-6 HOURS as needed for Wheezing June 04, 2023 11:00pm September 16, 2024 3:04pm Start: 08-26-2022 albuterol (PRO VENTIL,VENTOLIN) nebulizer solution [...] THE LUNGS every 4 hours if needed ARIPiprazole 300 mg extended release prefilled syringe (20 sources) Atypical Antipsychotic Start: 09-16-2024 Aripiprazole (Abilify Maintena) 300 mg suspension,extended rel syring Active MG IM September 16, 2024 12:00am Start: 02-26-2024 Abilify Mainte na 300 MG injection syringe inject INTRAMUSCULARLY ONCE A MONTH (BRING TO [...] daily. Inject 300 mg intram uscularly. atenolol 50 mg oral tablet (20 sources) beta-Adrenergic Zack Start: 06-24-2024 End: 12-21-2024 take 1 tablet by mouth once daily atenolol (Tenormin) 50 MG tablet Indications: Hypertension, unspecified type (CMS/HCC) Take 1 tablet (50 mg) by mouth Daily 90 tablet 1 06/24/2024 12/21/2024 Active Start: 07-07-2023 take 1 tablet by yancy th once daily at dinner Atenolol 25 MG tablet Take 1 tablet by mouth Daily (with dinner). 07/07/2023 Active Start: 02-18-2020 Atenolol 50 mg tablet Active 25 MG PO Daily February 17, 2020 11:00pm Start: 02-18-2020 take 25 mg by mouth once daily Atenolol Active 25 MG PO Daily February 18, 2020 12:00am Start: 02-18-2020 End: 11-17-2022 take 1 tablet by mouth once daily Atenolol Active 1 TAB PO Daily February 18, 2020 12:00am Comment on above: Take 50 mg by mouth once daily. Take 1 tablet by yancy th every afternoon. celecoxib 200 mg oral capsule (18 sources) Nonsteroidal Anti-inflammatory Drug Start: 01-07-2024 take 1 capsule by mouth twice daily celecoxib (CELEBREX) 200 mg capsule take 1 capsule by mouth twice a day if needed 0 01/07/2024 Active Start: 06-18-2019 End: 02-18-2020 take 1 tablet by mouth once daily Celecoxib 200 mg capsule Discontinued 1 TAB PO Daily June 17, 2019 11:00pm February 18, 2020 9:25am take 1 capsule by mo [facility] in the morning, then take 1 capsule by mouth at bedtime celecoxib (CeleBREX) 200 mg capsule Take 1 capsule (200 mg total) by mouth in the morning and 1 capsule (200 mg total) before bedtime. 0 Active Comment on above: take 1 capsule by mo ut twice a day if needed cholecalciferol 0.125 mg oral capsule (20 sources) Vitamin D Start: 05-27-20 take 1 capsule by mouth once daily cholecalciferol (Vitamin D-3) 125 MCG (5000 UT) capsule Take 125 mcg by mouth Daily 05/27/2024 Active Start: 03-11-2024 take 1 tablet by yancy th once daily Vitamin D3 125 MCG (5000 [...] by mouth once daily. 168 hr cloNIDine 0.42238 mg/hr transdermal system (3 sources) Central alpha-2 Adrenergic Agonist Start: 3 cloNIDine (CATAPRES-TTS) 0.1 mg/[address] 1 patch on the skin once a week. New patch on Monday 0 09/27/2023 Active Daridorexant (1 source) Start: 4 Daridorexant (Quviviq) 50 mg tablet Active MG PO September 16, 2024 12:00am daridorexant (QUVIVIQ) 50 mg tablet (8 sources) daridorexant (QUVIVIQ) 50 mg tablet Take by mouth as directed. 0 Active Comment on above: Take by mouth as dir ected. daridorexant 50 mg tablet (4 sources) take 1 tablet by mouth once daily daridorexant 50 mg tablet Take 50 mg by mouth nightly. 0 Active Daridorexant HCl (Quviviq) 50 MG tablet (8 sources) take 1 tablet by mouth at bedtime Daridorexant HCl (Quviviq) 50 MG tablet Indications: Insomnia Take 50 mg by mouth at bedtime Active DayVigo (13 sources) DayVigo Not-Taki ng DHEA 25 MG (13 sources) DHEA 25 [...] above: Take 1 capsule by mo ut two times a day. DULoxetine 40 mg delayed release oral capsule (13 sources) Serotonin and Norepinephrine Reuptake Inhibitor take 1 capsule by mouth once daily estradiol 0.1 mg/ml vaginal cream (20 sources) Estrogen Start: 09-16-2024 Estradiol 0.01 % (0.1 mg/gram) cream Active VAGINAL September 16, 2024 12:00am Start: 09-04-2024 End: 09-04-2025 take 1 tablet by mouth once daily estradiol (Estrace) 1 MG tablet Indications: Night sweats Take 1 tablet (1 mg) by mouth Daily 90 tablet 3 09/04/2024 09/04/2025 Active Start: 07-29-2024 estradiol (Est race) 0.1 MG/GM vaginal cream Indications: Hormone replacement therapy , Dyspareunia in female Apply 0.5g vaginally twice weekly. 42.5 g 1 07/29/2024 Active Start: 03-14-2024 estradiol (EST RACE) 0.01 % (0.1 mg/gram) vaginal cream Indications: [...] 1 tablet by mouth once daily Estradiol 1 mg tablet Discontinued 1 TAB PO Daily June 18, 2019 11:00pm February 18, 2020 9:25am famotidine 40 mg oral tablet (9 sources) Histamine-2 Receptor Antagonist Start: 08-12-2023 End: 08-22-2023 take 1 tablet by mouth once daily famotidine (PEPCID) 40 MG tablet Take 1 tablet by mouth daily for 10 days. 10 tablet 0 08/12/2023 08/22/2023 Active Start: 08-12-2023 End: 08-12-2023 Famotidine (PF) (PEPCID) inj ection 20 mg ferrous sulfate 325 mg oral tablet (11 sources) Start: 09-16-2024 Ferrous Sulfat e 325 mg (65 mg iron) tablet Active MG PO September 16, 2024 12:00am Start: 03-11-2024 take 1 tablet by yancy th every other day ferrous sulfate 325 (65 Fe) MG tablet Take 325 mg by mouth every other day 03/11/2024 Active Zglyvcpyclq-Bqjkouwja-Aoqflr er (20 sources) Anticholinergic, Corticosteroid, beta2-Adrenergic Agonist Start: 09-16-2024 Okxhgewaxno-Zfgqbpotd-Kkzmux er (Trelegy Ellipta) 100-62.5-25 mcg blister with device Active INHALATION September 16, 2024 12:00am Start: 08-15-2024 take 1 puff(s) by mo ut once daily Trelegy Ellipta 100-62.5-25 MCG/ACT aerosol powder Indications: Mild intermittent asthma, unspecified whether complicated ([facility]) INHALE 1 PUFF BY MOUTH DAILY 60 each 1 08/15/2024 Active Start: 07-20-2023 Trelegy Ellipt a 100-62.5-25 MCG/ACT Aerosol Powder, breath activated inhaler Inhalation for 30 Days 07/20/2023 Active Start: 07-20-2023 take 1 puff(s) by mo uth once daily TRELEGY ELLIPTA 100-62.5-25 MCG/ACT AEPB Take 1 puff by mouth. Inhale once daily 0 07/20/2023 Active Start: 05-31-2022 take 1 puff(s) by in halation in the morning ixyhccbftuy-atlgdbcuc-czrqrjxw (TRELEGY ELLIPTA) 100-62.5-25 mcg blister with device Indications: Asthma, unspecified asthma severity, unspecified whether complicated, unspecified whether persistent Inhale 1 puff in the morning. 60 each 5 05/31/2022 Active take 1 puff(s) by in halation once daily enecbmhbobq-cqjxczlwn-muhzqkpc (TRELEGY ELLIPTA) 100-62.5-25 mcg Inhale 1 Puff [...] every 28 DAYS 07/19/2023 Active Start: 06-05-2023 End: 09-16-2024 Fremanezumab-Vfrm (Ajovy Aut oinjector) 225 mg/1.5 mL auto-injector Discontinued 225 MG SUBCUT every month June 04, 2023 11:00pm September 16, 2024 3:04pm Comment on above: inject 1 AND 1/2 milliliters subcutaneou sly every 28 DAYS 1 ml galcanezumab-gn lm 120 mg/ml auto-injector (20 sources) Start: 05-15-20 inject 120 mg by subcutaneous injection every 30 days galcanezumab (Emgality) 120 MG/ML auto-injector Inject 120 mg under the skin every 30 (thirty) days 05/15/2024 Active End: 01-25-2024 galcanezumab-gnlm (EMGALITY SYRINGE) 120 mg/mL syringe Inject subcutaneously once every month. Do not shake. 0 01/25/2024 Discontinued (Course of therapy completed) Comment on above: Inject subcutaneousl y once every month. Do not shake. inulin 200 mg / lactobacillus rhamnosus gg [id number] unt oral capsule (1 source) Start: 08-12-08 End: take 1 capsule by mouth once daily lactobacillus rhamnosus (CULTURELLE) 10 billion cell -200 mg capsule Take 1 capsule by mouth once daily. 30 capsule 0 06/07/2022 07/07/2022 Active Comment on above: Take 1 capsule by [facility] once daily. iv contrast (will be provided [...] Toradol per 15 mg Jan, 60 mg L-Theanine 200 MG capsule (8 sources) take 1 capsule by mouth once daily L-Theanine 200 MG capsule Take 1 capsule by mouth Daily Active LORazepam 1 mg oral tablet (16 sources) Benzodiazepine Start: 07-19-2023 take 1 tablet by mouth once daily for anxiety LORazepam (ATIVAN) 1 MG tablet take 1 tablet by mouth once daily if needed for anxiety 0 07/19/2023 Active Start: 06-05-2023 End: 09-16-2024 take 1 tablet by mouth twice daily as needed for anxiety Lorazepam 1 mg Tablet Discontinued 1 MG PO Twice daily as needed for Anxiety June 04, 2023 11:00pm September 16, 2024 3:04pm take 1 tablet by yancy th every twenty-four hours LORazepam 0.5 MG 1 tablet at bedtime as needed Orally Once a day Active losartan potassium 25 mg oral tablet (10 sources) Angiotensin 2 Receptor Zack Start: 05-14-2024 End: 05-14-2025 take 1 tablet by mouth once daily losartan (Cozaar) 25 MG tablet Indications: Hypertension, unspecified type (CMS/HCC) Take 1 tablet (25 mg) by mouth Daily 30 tablet 11 05/14/2024 05/14/2025 Active 24 hr methylphenidate hydrochloride 54 mg extended release oral tablet (18 sources) Central Nervous System Stimulant Start: 09-16-2024 take 1 mg by mouth every twenty-four hours Methylphenidate Hcl 54 mg tablet extended release 24hr Active MG PO September 16, 2024 12:00am Start: 06-26-2024 take 1 tablet by yancy th once daily methylphenidate ER (Concerta) 54 MG CR tablet Take 54 mg by mouth Daily 06/26/2024 Active Start: 09-13-2017 End: 10-01-2018 take 1 tablet by mouth twice daily Methylphenidate Hcl 20 mg tablet Discontinued 1 TAB PO Twice daily September 13, 2017 12:00am October 01, 2018 9:43am methylPREDNISolone 4 mg oral tablet (20 sources) Corticosteroid Start: 09-16-2024 take 1 tablet by mouth once Methylprednisolone (Medrol (Salvador)) 4 mg tablets,dose pack Active 0 PO per package directions September 16, 2024 12:00am PO PER PKG DIR for 6 days Start: 05-10-2022 methylPREDNISo lone 4 MG as directed Orally Once a day for 6 days May, Not-Taking/PRN 24 hr mirabegron 50 mg extended release oral tablet (7 sources) beta3-Adrenergic Agonist Start: 09-16-2024 take 1 tablet by mouth once daily Mirabegron (Myrbetriq) 50 mg tablet extended release 24 hr Active 50 MG PO Daily September 16, 2024 12:00am Start: 09-04-2024 End: 09-04-2025 take 1 tablet by mouth every twenty-four hours at bedtime mirabegron ER (Myrbetriq) 50 MG 24 hr tablet Indications: Urinary frequency , Urinary urgency Take 1 tablet (50 mg) by mouth at bedtime Do not crush, chew, or split. 30 tablet 11 09/04/2024 09/04/2025 Active omeprazole 40 mg delayed release oral capsule (20 sources) Proton Pump Inhibitor Start: 03-06-2024 take 1 capsule by mouth in the morning omeprazole (PriLOSEC) [address] capsule Take 40 mg by mouth in the morning. 03/06/2024 Active Start: 09-13-2017 End: 06-05-2023 take 1 capsule by mouth twice daily Omeprazole 40 mg capsule,delayed release(DR/EC) Discontinued 40 MG PO Twice daily September [...] every twelve hours Quviviq 50 MG tablet (2 sources) take 1 tablet by mouth once [...] headache). 12 tablet 4 10/23/2023 Active rOPINIRole 2 mg oral tablet (20 sources) Nonergot Dopamine Agonist Start: 3 End: 5 take 1 tablet by mouth in the morning rOPINIRole (Requip) 1 MG tablet Indications: Restless Leg Syndrome Take 1 tablet (1 mg) by mouth in the morning. 90 tablet 1 06/03/2024 11/30/2024 Active Start: 09-19-2021 End: 11-30-2024 take 1 tablet by mouth at bedtime rOPINIRole (Requip) 2 MG tablet Indications: Restless Leg Syndrome Take 1 tablet (2 mg) by mouth at bedtime 90 tablet 1 06/03/2024 11/30/2024 Active Start: 11-29-2019 take 1 mg by mouth o nce daily in the morning rOPINIRole (REQUIP) 2 mg tablet Take 1 tablet (2 mg total) by mouth nightly. 1 mg in the morning 0 11/29/2019 Active Start: 06-19-2019 End: 09-16-2024 take 2 mg by mouth once daily at bedtime Ropinirole (Requip) 5 mg Tablet Discontinued 2 MG PO Daily at bedtime June 18, 2019 11:00pm September 16, 2024 3:04pm Comment on above: Take 2 mg by [...] Reductase Inhibitor Antibacterial, Sulfonamide Antimicrobial Start: End: 4 take 1 tablet by mouth [...] days. traMADol hydrochloride 50 mg oral tablet (20 sources) Opioid Agonist Start: 4 End: 4 take 1 tablet by mouth every six hours for pain traMADol (Ultram) 50 MG tablet Indications: Degenerative disc disease, cervical Take 1 tablet (50 mg) by mouth every 6 (six) hours if needed for severe pain for up to 5 days 15 tablet 09/26/2024 10/01/2024 Active Start: 08-09-2023 take 1 tablet by yancy th every six hours as needed traMADol (ULTRAM) 50 MG tablet Take 1 tablet by mouth every 6 hours as needed. 0 08/09/2023 Active Start: 07-01-2019 End: 02-18-2020 take 1 tablet by mouth twice daily as needed for pain Tramadol 50 mg Tablet Discontinued 1 TAB PO Twice daily as needed for Pain June 30, 2019 11:00pm February 18, 2020 9:26am Start: 06-18-2019 End: 06-19-2019 take 1 tablet by mouth twice daily as needed for pain Tramadol 50 mg Tablet Discontinued 50 MG PO Twice daily as needed for Pain June 17, 2019 11:00pm June 19, 2019 12:23pm traZODone hydrochloride 50 mg oral tablet (20 sources) Serotonin Reuptake Inhibitor Start: 07-24-2023 take 3 tablets by mouth at bedtime traZODone (DESYREL) 50 MG tablet take 3 tablet by mouth at bedtime 0 07/24/2023 Active Start: 06-05-2023 End: 09-16-2024 take 2 tablets by mouth once daily at bedtime Trazodone 100 mg Tablet Discontinued 200 MG PO Daily at bedtime June 04, 2023 11:00pm September 16, 2024 3:04pm Start: 06-05-2023 take 200 mg by mouth [...] 03/04/2022 Active Start: 11-02-2018 End: 12-19-2018 Trazodone 100 mg tablet Disc ontinued TABLET November 02, 2018 12:00am December 19, 2018 12:17pm Start: 11-02-2018 End: 12-19-2018 Trazodone Discontinued TABLE T November 02, 2018 1:00am December 19, 2018 1:17pm take 1 tablet by yancy th at bedtime traZODone HCl - 150 MG Oral Tablet TAKE 1 TABLET AT BEDTIME. Quantity: 0 Refills: 0 Ordered: 12-May-2022 DO Active Comment on above: Take 150 mg by mouth daily at bedtime. Take 200 mg by mouth daily at bedtime. triamcinolone acetonide 1 mg/ml topical cream (20 sources) Corticosteroid Start: 09-04-2024 triamcinolone (Kenalog) 0.1 % cream Indications: Erythema Apply topically 2 (two) times a day 45 g 09/04/2024 Active Start: 09-14-2022 Kenalog-40 Oct, 40 mg Start: 08-19-2021 KENALOG - 10 m g Aug, 10 mg Vitamin B12 100 MCG (9 sources) Vitamin B12 100 MCG as directed Orally Active Completed/Discontinued Medications Medication Drug Class(es) Dates Sig (Normalized) Sig (Original) acetaminophen 250 mg / aspirin 250 mg / caffeine 65 mg oral tablet (8 sources) Platelet Aggregation Inhibitor, Nonsteroidal Anti-inflammatory Drug, Central Nervous System Stimulant, Methylxanthine Start: 09-13-2017 End: 10-01-2018 take 1 tablet by mouth every four to six hours as needed for headache Aspirin-Acetaminop hen-Caffeine (Excedrin Migraine) 250-250-65 mg Tablet Discontinued 1 - 2 TAB PO EVERY 4-6 HOURS as needed for headaches September 13, 2017 12:00am October 01, 2018 9:40am alendronic acid 70 mg oral tablet (5 sources) Bisphosphonate Start: 06-05-2023 End: 09-16-2024 take 1 tablet by mouth every week Alendronate (Fosamax) 70 mg Tablet Discontinued 70 MG PO every week June 04, 2023 11:00pm September 16, 2024 3:04pm ALPRAZolam 1 mg oral tablet (8 sources) Benzodiazepine Start: 09-13-2017 End: 10-01-2018 take 1 tablet by mouth three times daily Alprazolam 1 mg tablet Discontinued 1 TAB PO Three times daily September 13, 2017 12:00am October 01, 2018 9:40am amitriptyline hydrochloride 25 mg oral tablet (8 sources) Tricyclic Antidepressant Start: 02-18-2020 End: 06-05-2023 take 5 tablets by mouth once daily Amitriptyline 25 mg Tablet Discontinued 125 MG PO Daily February 17, 2020 11:00pm June 05, 2023 9:13am Start: 02-18-2020 End: 06-05-2023 take 125 mg by mouth once daily Amitriptyline Discontinued 125 MG PO Daily February 18, 2020 12:00am June 05, 2023 10:13am ascorbic acid 60 mg / beta carotene 5000 unt / copper sulfate 40 mg / dl-alpha tocopheryl acetate 30 unt / sodium selenite 0.04 mg / zinc oxide 40 mg oral tablet (6 sources) Vitamin C Start: 08-09-2024 End: 09-26-2024 take 1 tablet by mouth in the morning Multiple Vitamin (Multivitamin Adult) tablet Take 1 tablet by mouth in the morning. 08/09/2024 09/26/2024 Discontinued (Therapy completed) Start: 08-09-2024 take 1 tablet by yancy th once daily Multiple Vitamin (Multivitamin Adult) tablet Take 1 tablet by mouth daily. 90 tablet 3 08/09/2024 Active atorvastatin 20 mg oral tablet (20 sources) HMG-CoA Reductase Inhibitor Start: 03-10-2022 End: 09-16-2024 take 1 tablet by mouth once daily Atorvastatin (Lipitor) 20 mg Tablet Discontinued 20 MG PO Daily June 04, 2023 11:00pm September 16, 2024 3:04pm Comment on above: Take 20 mg by mouth once daily. baclofen 10 mg oral tablet (7 sources) gamma-Aminobutyric Acid-ergic Agonist Start: 08-01-2024 End: 09-26-2024 take 1 tablet by mouth once daily baclofen (Lioresal) 10 MG tablet Take 10 mg by mouth Daily 08/01/2024 09/26/2024 Discontinued (Therapy completed) betamethasone 0.5 mg/ml topical cream (2 sources) Corticosteroid End: 12-20-2023 betamethasone dipropionate 0.05 % cream Apply 1 Application topically in the morning and 1 Application before bedtime. 0 12/20/2023 Discontinued (Therapy completed) brexpiprazole 3 mg oral tablet (8 sources) Atypical Antipsychotic Start: 02-18-2020 End: 06-05-2023 take 1 tablet by mouth once daily Brexpiprazole (Rexulti) 3 mg Tablet Discontinued 3 MG PO Daily February 17, 2020 11:00pm June 05, 2023 9:13am busPIRone hydrochloride 5 mg oral tablet (5 sources) Start: 09-04-2024 End: 12-03-2024 take 1 tablet by mouth in the morning busPIRone (Buspar) 5 MG tablet Indications: Anxiety Take 1 tablet (5 mg) by mouth in the morning and 1 tablet (5 mg) before bedtime. 60 tablet 2 09/04/2024 09/26/2024 Discontinued (Therapy completed) calcium chloride 0.0014 meq/ml / potassium chloride [...] 500 mg cephalexin 500 mg oral capsule (8 sources) Cephalosporin Antibacterial Start: 09-20-20 17 End: 10-01-20 18 take 1 capsule by mouth every eight hours Cephalexin (Keflex) 500 mg capsule Discontinued 500 MG PO Q8H 21 September 20, 2017 12:00am October 01, 2018 9:40am cetirizine hydrochloride 10 mg oral tablet (17 sources) Histamine-1 Receptor Antagonist Start: 07-09-20 24 End: 09-26-20 24 take 1 tablet by mouth once daily cetirizine (ZyrTEC) 10 MG tablet Indications: Allergic rhinitis due to other allergic trigger, unspecified seasonality TAKE 1 TABLET BY MOUTH EVERY DAY 30 tablet 1 07/09/2024 09/26/2024 Discontinued (Therapy completed) Start: 10-15-2018 End: 12-19-2018 Cetirizine 5 mg Tablet Disco ntinued 1 TAB PO As Directed October 15, 2018 12:00am December 19, 2018 12:13pm Start: 10-15-2018 End: 12-19-2018 Cetirizine Discontinued 1 TA B PO As Directed October 15, 2018 1:00am [...] oral tablet (20 sources) Muscle Relaxant Start: 2023 End: 2023 take 1 tablet by mouth three times daily as needed cyclobenzaprine (Flexeril) 10 MG tablet Take 10 mg by mouth 3 (three) times a day as needed 07/04/2024 09/04/2024 Discontinued (Therapy completed) Start: 09-13-2017 End: 10-01-2018 take 3 tablets by mouth once daily at bedtime Cyclobenzaprine 10 mg tablet Discontinued 3 TAB PO Daily at bedtime September 13, 2017 12:00am October 01, 2018 9:41am End: 01-25-2024 cyclobenzaprine (FLEXERIL) 1 0 mg tablet Take by mouth three times daily. 0 01/25/2024 Discontinued (Course of therapy completed) take 1 tablet by [facility] twice daily as needed Cyclobenzaprine HCl 10 MG 1 tablet as needed Orally up to twice daily as needed for 30 day(s) Active Comment on above: Take by mouth three times daily. dexlansoprazole 60 mg delayed release oral capsule (20 sources) Proton Pump Inhibitor Start: End: take 1 capsule by mouth before breakfast Dexlansoprazole 60 mg CpDM Indications: Gastroesophageal reflux disease, unspecified whether esophagitis present take 1 capsule by mouth before breakfast 30 capsule 5 04/11/2023 02/27/2024 Discontinued Comment on above: take 1 capsule by [facility] every morning BEFORE BREAKFAST take 1 capsule by [facility] before breakfast Dexlansoprazole (Dexilant) 60 mg Capsule,Biphase Delayed Releas (5 sources) Start: 023 End: take 1 capsule by mouth once daily Dexlansoprazole (Dexilant) 60 mg Capsule,Biphase Delayed Releas Discontinued 60 MG PO Daily June 04, 2023 11:00pm September 16, 2024 3:04pm Start: 06-05-2023 take 1 capsule by [facility] once daily Dexlansoprazole (Dexilant) 60 mg Capsule,Biphase Delayed Releas Active 60 MG PO Daily June 04, 2023 11:00pm Start: 06-05-2023 take 1 capsule by [facility] once daily Dexlansoprazole (Dexilant) 60 mg Capsule,Biphase Delayed Releas Active 60 MG PO Daily June 05, 2023 12:00am diazePAM 10 mg oral tablet (2 sources) Benzodiazepine Start: 07-05-2024 End: 09-04-2024 diazePAM (Valium) 10 MG tablet Take 10 mg by mouth 07/05/2024 09/04/2024 Discontinued (Therapy completed) docusate sodium 50 mg / sennosides, residential 8.6 mg oral tablet (8 sources) Start: 09-20-2017 End: 10-01-2018 take 2 tablets by mouth twice daily Sennosides-Docus ate Sodium (Dok Plus) 8.6-50 mg Tablet Discontinued 2 TAB PO Twice daily 40 14 September 20, 2017 12:00am October 01, 2018 9:42am 0.4 ml enoxaparin sodium 100 mg/ml prefilled syringe (5 sources) Low Molecular Weight Heparin Start: 06-05-2023 End: 09-16-2024 inject 40 mg by subcutaneous injection once daily Enoxaparin 40 mg/0.4 mL syringe Discontinued 40 MG SUBCUT Daily June 04, 2023 11:00pm September 16, 2024 3:04pm eszopiclone 3 mg oral tablet (15 sources) Start: 06-05-2023 End: 09-16-2024 take 1 tablet by mouth once daily at bedtime Eszopiclone (Lunesta) 3 mg Tablet Discontinued 3 MG PO Daily at bedtime June 04, 2023 11:00pm September 16, 2024 3:04pm 24 hr fexofenadine hydrochloride 180 mg / pseudoephedrine hydrochloride 240 mg extended release oral tablet (8 sources) alpha-Adrenergic Agonist, Histamine-1 Receptor Antagonist Start: 12-19-2018 End: 06-18-2019 take 1 tablet by mouth once daily in the morning, then take 1 tablet by mouth every twenty-four hours Fexofenadine-Pse udoephedrine (Ember-D 24 Hour) 180-240 mg Tablet Extended Release 24 Hr Discontinued 1 TAB PO Every morning December 19, 2018 12:00am June 18, 2019 2:04pm fluconazole 150 mg oral tablet (8 sources) Azole Antifungal Start: 02-18-2020 End: 06-05-2023 Fluconazole (Diflucan) 150 mg tablet Discontinued 150 MG PO Once 1 February 17, 2020 11:00pm June 05, 2023 9:13am take one PO, if still symptomatic then take another pill in 72 hrs fluticasone propionate 0.05 mg/actuat metered dose nasal spray (20 sources) Corticosteroid Start: 10-15-2018 End: 11-17-2022 Fluticasone Propionate (Flonase Allergy Relief) 50 mcg/actuation [place],Suspension Discontinued 2 SPRAY INTRANASAL Daily October 15, 2018 12:00am June 18, 2019 2:04pm Comment on above: Use 1 [place] in each nostril once daily. Fluticasone Propion-Salmeterol (16 sources) Corticosteroid, beta2-Adrenergic Agonist Start: 06-18-2019 End: 06-05-2023 take 1 puff(s) by inhalation twice daily Fluticasone Propion-Salmeter ol (Advair Diskus) 100-50 mcg/dose Blister With Device [...] puff(s) by inhalation twice daily Fluticasone Propion-Salmeterol 115-21 mcg/actuation HFA aerosol inhaler Discontinued 2 PUFF INHALATION Twice daily October 15, 2018 12:00am June 18, 2019 2:04pm Start: 10-15-2018 End: 06-18-2019 take 1 puff(s) [...] as needed for up to 10 days. hydrOXYzine hydrochloride 50 mg oral tablet (16 sources) Antihistamine Start: 02-18-2020 End: 06-05-2023 take 1 tablet by mouth once daily at bedtime Hydroxyzine Hcl 50 mg Tablet Discontinued 50 MG PO Daily at bedtime February 17, 2020 11:00pm June 05, 2023 9:13am Start: 12-19-2018 End: 06-18-2019 take 1 tablet by mouth twice daily Hydroxyzine Hcl 25 mg Tablet Discontinued 25 MG PO Twice daily December 19, 2018 12:00am June 18, 2019 2:04pm ibuprofen 800 mg oral tablet (11 sources) Nonsteroidal Anti-inflammatory Drug Start: 08-01-2024 End: 09-26-2024 take 1 tablet by mouth three times daily as needed for pain ibuprofen 800 MG tablet Take 800 mg by mouth 3 (three) times a day as needed for moderate pain or mild pain 08/01/2024 09/26/2024 Discontinued (Therapy completed) Start: 01-26-2024 End: 02-02-2024 take 1 tablet [...] for pain for up to 7 days. lactobacillus rhamnosus gg [id number] unt oral capsule (20 sources) Start: 2 End: 3 take 1 capsule by mouth once daily [...] on above: Take 1 capsule by mo [facility] once daily. lamoTRIgine 200 mg oral tablet (20 sources) Mood Stabilizer, Anti-epileptic Agent Start: 12-19-2018 End: 06-05-2023 take 1 tablet by mouth once daily Lamotrigine (Lamictal) 200 mg Tablet Discontinued 200 MG PO Daily December 19, 2018 12:00am June 05, 2023 9:13am Start: 10-15-2018 End: 12-19-2018 take 1 tablet by mouth twice daily Lamotrigine 150 mg tablet Discontinued 1 TAB PO Twice daily October 15, 2018 12:00am December 19, 2018 12:14pm take 1 tablet by yancy once daily [...] 25 mg by mouth once daily. linaclotide (8 sources) Guanylate Cyclase-C Agonist Start: 10-01-2018 End: 06-19-2019 take 1 capsule by mouth once daily Linaclotide 145 mcg capsule Discontinued 145 MCG PO Daily October 01, 2018 12:00am June 19, 2019 12:23pm Start: 10-01-2018 End: 06-19-2019 take 145 ug by mouth once daily Linaclotide Discontinued 145 MCG PO Daily October 01, 2018 1:00am June 19, 2019 1:23pm Start: 10-01-2018 End: 06-19-2019 take 145 ug by mouth once daily Linaclotide Discontinued 145 MCG PO Daily October 01, 2018 12:00am June 19, 2019 12:23pm lisdexamfetamine dimesylate 50 mg oral capsule (20 sources) Central Nervous System Stimulant Start: 01-22-2024 End: 08-07-2024 Vyvanse 50 MG capsule Take 70 mg by mouth Daily (with dinner). 01/22/2024 08/07/2024 Discontinued Start: 01-22-2024 take 1 capsule by mouth [...] on above: Take 1 capsule by [facility] every afternoon. LOCM iohexol (OMNIPAQUE 300 MG/ML) injection 100 mL (1 source) Start: 08-12-20 End: 08-12-20 LOCM iohexol (OMNIPAQUE 300 MG/ML) injection 100 mL lurasidone hydrochloride 40 mg oral tablet (8 sources) Atypical Antipsychotic Start: 06-18-20 End: 02-18-20 take 1 tablet by mouth once daily Lurasidone (Latuda) 40 mg tablet Discontinued 60 MG PO Daily June 17, 2019 11:00pm February 18, 2020 9:26am metroNIDAZOLE 500 mg oral tablet (13 sources) Nitroimidazole Antimicrobial Start: 02-10-20 take 1 tablet by mouth three times [...] to surgery. mirtazapine 15 mg oral tablet (8 sources) Start: End: take 2 tablets by mouth once daily Mirtazapine (Remeron) 15 mg Tablet Discontinued 30 MG PO Daily December 19, 2018 12:00am February 18, 2020 9:26am montelukast 10 mg oral tablet (8 sources) Leukotriene Receptor Antagonist Start: End: take 1 tablet by mouth once daily in the evening Montelukast 10 mg tablet Discontinued 10 MG PO Every evening October [...] on above: Take 2 tablets by mo [facility] as directed. Take 2 tablet at 6pm, 7pm, and 11pm the evening prior to surgery. nitrofurantoin, macrocrystals 25 mg / nitrofurantoin, monohydrate 75 mg oral capsule (11 sources) Nitrofuran Antibacterial Start: End: take 1 capsule by mouth twice daily at mealtime Nitrofurantoin Monohyd/M-Cryst (Macrobid) 100 mg capsule Discontinued 100 MG PO Twice daily 10 February 17, 2020 11:00pm June 05, 2023 9:13am must administer with a meal/food Comment on above: Take 1 capsule by [facility] twice daily. nystatin [id number] unt/ml topical cream (20 sources) Polyene Antifungal [...] chloride 10 mg extended release oral tablet (8 sources) Cholinergic Muscarinic Antagonist Start: End: take 1 tablet by mouth once daily Oxybutynin Chloride (Ditropan Xl) 10 mg Tablet Extended Release 24hr Discontinued 10 MG PO Daily October 01, 2018 12:00am June 19, 2019 12:23pm phenazopyridine hydrochloride 200 mg oral tablet (8 sources) Start: End: take 1 tablet by mouth every eight hours Phenazopyridine (Pyridium) 200 mg tablet Discontinued 200 MG PO Q8H 6 February 17, 2020 11:00pm June 05, 2023 9:13am polyethylene glycol 3350 01540 mg powder for oral solution (3 sources) Osmotic Laxative Start: End: polyethylene glycol 3350 (MIRALAX) 17 gram/dose powder Take 17 g by mouth as directed. Dissolve dose in 4 - 8 ounces of liquid and take as directed. 0 12/27/2021 02/08/2022 Discontinued (Course of therapy completed) Comment on above: Take 17 g by mouth a s directed. Dissolve dose in 4 - 8 ounces of liquid and take as directed. pregabalin 75 mg oral capsule (20 sources) Start: End: take 1 capsule by mouth in the morning pregabalin (Lyrica) 75 MG capsule Indications: Tongue pain Take 1 capsule (75 mg) by mouth in the morning and 1 capsule (75 mg) before bedtime. 60 capsule 08/01/2024 09/04/2024 Discontinued (Therapy completed) Start: 07-01-2019 End: 02-18-2020 take 1 tablet [...] on above: Take 1 capsule by mo [facility] as directed. As needed for constipation QUEtiapine 200 mg oral tablet (8 sources) Atypical Antipsychotic Start: 10-01-2018 End: 12-19-2018 take 1 tablet by mouth once daily Quetiapine 200 mg tablet Discontinued 200 MG PO Daily October 01, [...] on above: Take 2 tablets by mo [facility] three times daily as needed. simethicone in [...] Comment on above: Take 1 tablet by [facility] every 8 hours as needed. Trelegy Ellipta 100-62.5-25 MCG/INH (13 sources) take 1 puff(s) by inhalation once daily as needed Trelegy Ellipta 100-62.5-25 MCG/INH 1 puff Inhalation Once a day Not-Taking/PRN take 1 puff(s) by inhalation onc e daily Trelegy Ellipta 100-62.5-25 MCG/INH 1 puff Inhalation Once a day Not-Taking vitamin b12 1 mg oral tablet (20 sources) Vitamin B12 End: 01-25-2024 take 1 tablet by mouth once daily cyanocobalamin (VITAMIN B-12) 1,000 mcg tab Take 1,000 mcg by mouth once daily. 0 01/25/2024 Discontinued (Course of therapy completed) Comment on above: Take 1,000 mcg by [facility] once daily. vortioxetine 10 mg oral tablet [...] Da te Episodic/Chronic Acute and chronic tonsillitis (20 sources) Chronic tonsillitis; Translations: [Chronic tonsillitis] Onset: 1 Resolved: 2 07-07-2022 Chronic Administrative/social admission (2 sources) Education and/or schooling finding; Translations: [Problems related to education and literacy, unspecified] Onset: 4 01-22-2024 Episodic Allergic reactions (12 sources) Atopic dermatitis; Translations: [Atopic dermatitis, unspecified] Onset: 0 Resolved: 3 09-07-2023 Chronic Anxiety disorders (20 sources) Anxiety; Translations: [Anxiety state, unspecified] Onset: 2 09-04-2024 Chronic Asthma (20 sources) Asthma; Translations: [Unspecified asthma, uncomplicated] Onset: 1 10-15-2021 Chronic Attention-deficit, conduct, and disruptive behavior disorders (1 source) Attention-deficit hyperactivity disorder, unspecified type; Translations: [ADHD UNSPECIFIED TYPE] Onset: 3 Chronic Bacterial infection; unspecified site (1 source) Personal history of Methicillin resistant Staphylococcus aureus infection; Translations: [PERS HX METHICILLIN RSIST STAPH INF] Onset: 3 Episodic Conditions associated with dizziness or vertigo (11 sources) Postural dizziness; Translations: [Dizziness and giddiness] 02-18-2020 Episodic Disorders of lipid metabolism (13 sources) Pure hypercholesterolemia, unspecified; Translations: [Hyperlipidemia] Onset: 3 Resolved: 3 09-07-2023 Chronic Disorders usually diagnosed in infancy, childhood, or adolescence (8 sources) Attention deficit hyperactivity disorder, predominantly inattentive type; Translations: [Other specified behavioral and emotional disorders with onset usually occurring in childhood and adolescence] Onset: 3 04-04-2023 Chronic Esophageal disorders (20 sources) Gastroesophageal reflux disease; Translations: [Gastro-esophageal reflux disease without esophagitis] Onset: 1 10-15-2021 Chronic Esophageal disorders (1 source) Esophagitis; Translations: [[place] grade D esophagitis] 04-12-2024 Episodic Essential hypertension (20 sources) Hypertensive disorder; Translations: [Essential (primary) hypertension] Onset: 0 10-08-2020 Chronic Fluid and electrolyte disorders (1 source) Dehydration; Translations: [DEHYDRATION] Onset: 3 Episodic Gastrointestinal hemorrhage (3 sources) Gastrointestinal hemorrhage; Translations: [Hemorrhage of gastrointestinal tract, unspecified] Episodic Genitourinary congenital anomalies (1 source) Disorder of hymen; 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] 09-24-2024 Chronic Genitourinary symptoms and ill-defined conditions (16 sources) Incontinence; Translations: [Unspecified urinary incontinence] Onset: 2 04-06-2023 Chronic Headache; including migraine (20 sources) Migraine, unspecified, not intractable, without status migrainosus; Translations: [Other migraine, not intractable, without status migrainosus] Onset: 1 01-21-2021 Chronic Headache; including migraine (4 sources) Headache; including migraine; Translations: [HEADACHE UNSPECIFIED] Onset: 3 Inflammatory diseases of female pelvic organs (2 sources) Chronic vulvitis; Translations: [Subacute and chronic vulvitis] 09-04-2024 Episodic Menopausal disorders (20 sources) Genitourinary syndrome of menopause; Translations: [Other specified menopausal and perimenopausal disorders] Onset: 1 08-04-2021 Chronic Miscellaneous mental health disorders (7 sources) Primary insomnia; Translations: [Primary insomnia] Onset: 0 07-07-2020 Chronic Mood disorders (20 sources) Bipolar I disorder; Translations: [Bipolar disorder, unspecified] Onset: 2 10-08-2020 Chronic Mycoses (2 sources) Candidiasis of skin; Translations: [Candidiasis of skin and nail] Episodic Nonspecific chest pain (16 sources) Chest pain; Translations: [Chest pain, unspecified] Onset: 3 08-15-2021 Episodic Nutritional deficiencies (8 sources) Vitamin D deficiency; Translations: [Vitamin D deficiency, unspecified] Onset: 3 04-04-2023 Chronic Osteoarthritis (20 sources) Arthritis of right acromioclavicular joint; Translations: [Primary osteoarthritis, right shoulder] Onset: 0 09-29-2020 Chronic Other acquired deformities (5 sources) Contracture, right ankle; Translations: [CONTRACTURE RIGHT ANKLE] Onset: 2 Chronic Other aftercare (1 source) Other [facility] (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; Translations: [[employer] CURRENT DRUG THERAPY] Onset: 3 Episodic Other connective tissue disease (5 sources) Pain in right foot; Translations: [PAIN IN RIGHT FOOT] Onset: 3 Episodic Other diseases of bladder and urethra (8 sources) Overactive bladder; Translations: [Overactive bladder] Onset: 3 04-06-2023 Chronic Other disorders of stomach and duodenum (2 sources) Pylorospasm; Translations: [Pylorospasm, not elsewhere classified] Episodic Other disorders of stomach and duodenum (2 sources) Nonulcer dyspepsia; Translations: [Functional dyspepsia] Episodic Other female genital disorders (1 source) Postcoital bleeding; Translations: [Postcoital and contact bleeding] 09-27-2024 Chronic Other female genital disorders (2 sources) Burning [...] sources) Abdominal bloating; Translations: [Abdominal distension (gaseous)] 08-07-2024 Episodic Other gastrointestinal disorders (20 sources) Flatulence; Translations: [Gas] Episodic Other gastrointestinal disorders (2 sources) Motility disorder of large intestine; Translations: [Functional intestinal disorder, unspecified] Episodic Other gastrointestinal disorders (2 sources) Disorder of gastrointestinal tract; Translations: [Other specified diseases of the digestive system] Episodic Other hematologic conditions (3 sources) Raised cardiac enzyme or marker; Translations: [Other abnormal blood chemistry] Episodic Other hereditary and degenerative nervous system conditions (12 sources) Restless legs; Translations: [Restless legs syndrome] Onset: 0 07-07-2020 Chronic Other inflammatory condition of skin (2 sources) Erythema; Translations: [Erythematous condition, unspecified] 09-04-2024 Episodic Other liver diseases (2 sources) Fatty [...] Resolved: 2 Chronic Other nervous system disorders (8 sources) Tarsal tunnel syndrome; Translations: [Tarsal tunnel syndrome, unspecified lower limb] Onset: 3 04-04-2023 Chronic Other nervous system disorders (5 sources) [...] Translations: [Abnormal weight loss] 04-12-2024 Episodic Other skin disorders (2 sources) Night sweats; Translations: [Generalized hyperhidrosis] 09-04-2024 Episodic Other skin disorders (2 sources) Granulation of tissue; Translations: [Granulomatous disorder of the skin and subcutaneous tissue, unspecified] 09-24-2024 Episodic Other upper respiratory disease (19 sources) Sinusitis; Translations: [Allergic rhinitis, unspecified] Chronic Other upper respiratory disease (1 source) Allergic rhinitis, unspecified Onset: 2 Resolved: 2 Chronic Other upper respiratory disease (12 sources) Allergic rhinitis; Translations: [Allergic rhinitis, unspecified] Onset: 6 09-07-2023 Chronic Other upper respiratory infections (12 sources) Chronic sinusitis; Translations: [Chronic sinusitis, unspecified] Onset: 1 07-07-2022 Chronic Other upper respiratory infections (8 sources) Upper respiratory infection; Translations: [Acute upper respiratory infection, unspecified] 09-24-2017 Episodic Residual codes; unclassified (20 sources) Obstructive sleep apnea syndrome; Translations: [Obstructive sleep apnea (adult) (pediatric)] Onset: 3 Chronic Residual codes; unclassified (4 sources) Obstructive sleep apnea (adult) (pediatric); Translations: [Obstructive sleep apnea (adult) (pediatric)] Onset: 3 Chronic Residual codes; unclassified (8 sources) Device in situ; Translations: [Presence of functional implant, unspecified] Onset: 3 08-21-2023 Chronic Residual codes; unclassified (8 sources) Daytime hypersomnia; Translations: [Hypersomnia, unspecified] Onset: 1 10-24-2023 Chronic Residual codes; unclassified (5 sources) Postoperative [...] cervical region] Onset: 8 Resolved: 2 Chronic Sprains and strains (2 sources) Strain of [...] without bleeding] Onset: 4 Urinary tract infections (12 sources) Chronic interstitial cystitis; Translations: [Interstitial cystitis (chronic) without hematuria] Onset: 3 09-07-2023 Chronic Urinary tract infections (20 sources) Urinary tract infectious disease; Translations: [Urinary tract infection, site not specified] Onset: 2 02-18-2020 Episodic Viral infection (8 sources) Disease caused by 2019-nCoV; Translations: [COVID-19] 08-15-2021 Episodic Past or Other Problems Problem Classification Problem Date Documented Da te Episodic/Chronic Abdominal pain (20 sources) Generalized abdominal pain; Translations: [Generalized abdominal pain] Onset: 08-01-2022 Episodic Acquired foot deformities (6 sources) Valgus deformity, not elsewhere classified, right ankle; Translations: [Varus deformity, not elsewhere classified, right ankle] Onset: 09-28-2022 Episodic Allergic reactions (1 source) Unspecified contact dermatitis, unspecified cause; Translations: [Contact dermatitis, unspecified contact dermatitis type, unspecified trigger L25.9] Onset: 08-19-2021 Resolved: 08-19-2021 Episodic Complication of device; implant or graft (8 sources) Pain due to internal prosthetic device; Translations: [Pain due to internal orthopedic prosthetic devices, implants and grafts, initial encounter] Onset: 11-09-2023 11-09-2023 Episodic Complications of surgical procedures or medical care (4 sources) Infection following a procedure, other surgical site, initial encounter; Translations: [INFECT FOL PROC OTH SURG SITE INIT] Onset: 04-17-2022 Episodic Diabetes mellitus without complication (8 sources) Hyperglycemia; Translations: [Hyperglycemia, unspecified] Onset: 04-06-2023 Resolved: 10-03-2023 10-03-2023 Episodic Genitourinary symptoms and ill-defined conditions (20 sources) Incomplete emptying of bladder; Translations: [Retention of urine, unspecified] Onset: 08-01-2022 07-31-2023 Episodic Headache; including migraine (8 sources) Headache; Translations: [Headache] Onset: 08-01-2022 10-24-2023 Episodic Immunizations and screening for infectious disease (1 source) Contact with and (suspected) exposure to other viral communicable diseases; Translations: [Contact with and (suspected) exposure to other viral communicable diseases Z20.828] Onset: 08-13-2021 Resolved: 08-13-2021 Episodic Malaise and fatigue (20 sources) Fatigue; Translations: [Other malaise and fatigue] Onset: 04-01-2021 Episodic Mood disorders (8 sources) Mood swings; Translations: [Emotional lability] Onset: 04-04-2023 04-04-2023 Episodic Mood disorders (4 sources) Mood disorders Onset: 10-23-2023 10-23-2023 Nausea and vomiting (20 sources) Nausea and vomiting; Translations: [Nausea with vomiting, unspecified] Onset: 05-10-2022 Resolved: 05-10-2022 Episodic Nutritional deficiencies (12 sources) Cobalamin deficiency; Translations: [Deficiency of other specified B group vitamins] Onset: 10-23-2022 10-23-2022 Episodic Other aftercare (20 sources) Surgical follow-up; Translations: [Encounter for follow-up examination after completed treatment for conditions other than malignant neoplasm] Onset: 01-18-2022 Episodic Other connective tissue disease (20 sources) Pelvic floor dysfunction; Translations: [Other specified disorders of muscle] Onset: 12-24-2021 Resolved: 01-23-2024 Episodic Other connective tissue disease (20 sources) [...] Gastroparesis; Translations: [Gastroparesis] Onset: 10-08-2020 Episodic Other fractures (8 sources) History of stress fracture; Translations: [Personal history of (healed) stress fracture] Onset: 07-06-2023 07-06-2023 Episodic Other gastrointestinal disorders (8 sources) Colostomy present; Translations: [Colostomy status] Onset: 04-04-2023 Resolved: 09-07-2023 09-07-2023 Chronic Other gastrointestinal disorders (20 sources) Chronic constipation; Translations: [Other constipation] Onset: 03-28-2022 04-05-2022 Episodic Other gastrointestinal disorders (20 sources) Dysphagia; Translations: [Dysphagia, unspecified] Onset: 04-04-2023 Resolved: 01-23-2024 01-23-2024 Episodic Other gastrointestinal disorders (8 sources) Burping; Translations: [Eructation] Onset: 11-30-2023 11-30-2023 Episodic Other infections; including parasitic (20 sources) Personal history of other infectious and parasitic diseases; Translations: [History of 2019 novel coronavirus disease (COVID-19)] Onset: 08-01-2022 Resolved: 09-07-2023 10-15-2021 Episodic Other lower respiratory disease (8 sources) Cough; Translations: [Cough] Onset: 10-02-2023 10-24-2023 Episodic Other lower respiratory disease (8 sources) Wheezing; Translations: [Wheezing] Onset: 10-02-2023 10-24-2023 Episodic Other nervous system disorders (20 sources) Incoordination; Translations: [Unspecified lack of coordination] Onset: 01-18-2022 Resolved: 07-05-2023 Episodic Other non-epithelial cancer of skin (12 sources) Basal cell carcinoma of chest wall; [...] Translations: [Body mass index (BMI) 31.0-31.9, adult] Onset: 04-04-2023 Resolved: 07-05-2023 07-05-2023 Chronic Other nutritional; endocrine; and metabolic disorders (2 sources) Abnormal weight loss; Translations: [Abnormal weight loss] Onset: 04-12-2024 Episodic Other nutritional; endocrine; and metabolic disorders (8 sources) Weight loss; Translations: [Abnormal weight loss] Onset: 09-08-2023 09-08-2023 Episodic Other screening for suspected conditions (not mental disorders or infectious disease) (8 sources) Mammography abnormal; Translations: [Other abnormal and inconclusive findings on diagnostic imaging of breast] Onset: 04-04-2023 04-04-2023 Episodic Other upper respiratory disease (12 sources) Nasal congestion; Translations: [Nasal congestion] Onset: [...] satiety; Translations: [Early satiety] Onset: 04-12-2024 Episodic Residual codes; unclassified (8 sources) Insomnia; Translations: [Insomnia, unspecified] Onset: 05-30-2023 05-30-2023 Episodic Residual codes; unclassified (8 sources) Intolerant of heat; Translations: [Other general symptoms and signs] Onset: 09-08-2023 09-08-2023 Episodic Skin and subcutaneous tissue infections (1 source) Cellulitis of abdominal wall; Translations: [CELLULITIS OF ABDOMINAL WALL] Onset: 04-19-2022 Episodic Spondylosis; intervertebral disc disorders; other back problems (11 sources) Low back pain; Translations: [Cervicalgia] Onset: 07-28-2021 Resolved: 07-05-2023 Episodic Unclassified (1 source) Other low back [...] Test Name Value Interpretation Reference Range Facility Urinalysis macro (dipstick) panel (U)on 09-04-2024 Bilirubin, UA Negative Negative - 4(70) +++ mg/dL [facility] Blood, UA Negative Negative - 50 Devin/mcL [facility] Clarity, UA Clear [facility] Color, UA Yellow [facility] Glucose, UA Negative Negative - 2000(110) ++++ mg/dL [facility] Ketones, UA Negative Negative - 160(16) ++++ mg/dL [facility] Leukocytes, UA Negative Negative - 500+++ Aicha/mcL [facility] Nitrite, UA Negative Negative - Positive [facility] pH, UA 5 5 - 9 [facility] Protein, UA Negative Negative - 2000(20) ++++ mg/dL [facility] Spec Grav, UA 1.01 1 - 1.03 [facility] Urobilinogen, UA 0.2 0.2 - 12 mg/dL [facility] US ABDOMEN LIMITEDon 024 US ABDOMEN LIMITED EXAM: Abdomen Ultrasound, Limited. REASON FOR EXAM: Left lower quadrant lumps. COMPARISON: None TECHNIQUE: Longitudinal and transverse grayscale, color Doppler images of the abdominal wall obtained. FINDINGS: There is a 1.17 x 0.88 x 0.85 mixed hyper and hypoechoic nodule with areas of posterior acoustic enhancement previously measuring 1.05 x 0.82 x 0.64 cm. Septations are resolving. This is minimally larger than on the previous exam overall by ultrasound; however, the cystic component is smaller. A second lesion currently measures 1.4 x 1.2 x 0.8 cm, previously 2 x 1.5 x 1.2 cm. IMPRESSION: Two small subcutaneous nodules with mixed cystic and solid components. The more medial nodule is slightly smaller, hyperechoic. The smaller lateral lesion demonstrates a smaller cystic component but is unchanged to minimally larger on the current study. Again, the differential of the more lateral lesion includes a sebaceous cyst, fat necrosis, chronic hematoma, lipomatous lesion or phlegmon. The larger lesion demonstrates no significant interval change and is most consistent with a lipomatous lesion or fat necrosis. Follow-up based on clinical suspicion. *This report is generated using voice recognition reporting (SensingStrip). On occasion SensingStrip erroneously drops words from the report or replaces the spoken word with similar sounding words. Please call with any questions/concerns regarding this report.* Dictated and transcribed 08/28/2024/tm This report has been electronically signed and approved by the interpreting radiologist. Electronically Signed Dipti Lockhart II, M.D. 2024-08-28 16:38:48 Normal Not Available Follow-Upon 07-26-2024 Follow-Up [id number] Darrian Leal 1970 F Date Provider Department Center 07/26/2024 PAULINE SANTACRUZ [facility] SLEEP [facility] No family history on file Level of Service:36618 CT OFFICE/OUTPATIENT ESTABLISHED MOD MDM 30 MIN Reason for Visit and Comments: Follow-up [829091] - Inspire initiation Normal [facility] US ABDOMEN LIMITEDon 024 US ABDOMEN LIMITED [...] report is generated using voice recognition reporting (SensingStrip). On occasion GlySenscribe erroneously drops words from the report or replaces the spoken word with similar sounding words. Please call with any questions/concerns regarding this report.* Dictated and transcribed 07/16/2024/leydi This report has been electronically signed and approved by the interpreting radiologist. Electronically Signed Dipti Lockhart II, M.D. 2024-07-16 10:23:22 Normal Not Available 36on 07-12-2024 36 Left voicemail bob g to reschedule Inspire follow up appointment to 07/26 at 10:00 am. Normal [facility] Telephoneon 07-12-2024 Telephone [id number] Darrian Leal jonathan 1970 F Date Provider Department Center 07/12/2024 PAULINE SANTACRUZ [facility] SLEEP [facility] No family history on file Reason for Visit and Comments: Reschedule [709] Normal [facility] 36on 06-17-2024 36 Rescheduled cancelle d Inspire follow up appointment for 06/26 at 9:00 am. Normal [facility] MR ankle RT wo con 024 MR ankle RT wo con [facility] Main [place] [id number] MRI Report Signed Patient: Mary Leal MR#: [id number] : 1970 Acct:[id number] Age/Sex: 54 / F ADM Date: 04/30/24 Loc: [facility] Room: Type: [facility] Attending Dr: Sade Felix DPM, MS Copies [...] Andres Bullard M.D.04/30/2024 3:14 PM Dictation Location: [place] [address] Transcribed By: [facility] 04/30/24 1514 Dictated By: Andres Bullard DO 04/30/24 1503 Signed By: 04/30/24 1514 Normal [facility] 29on 04-28-2024 29 Encounter addended b y: Dick Mann MD on: 05/07/2024 7:26 PM Actions taken: Charge Capture section accepted Normal [facility] Documentationon 04-17-2024 Documentation [id number] Darrian Leal en 1970 F Date Provider Department Center 04/17/202459902-SBRXRADHA STARK [facility] Gerardo Heal No family history on file Normal [facility] Letter (Out)on 04-17-2024 Letter (Out) [id number] Darrian Leal en 1970 F Date Provider Department Center 04/17/2024 RADHA YARBROUGH [facility] Gerardo Heal No family history on file Normal [facility] DIAGNOSTIC UPPER ENDOSCOPYon 04-12-2024 [facility] Patient Name: Mary Leal Procedure Date: 04/12/2024 11:46 AM Date of : 1970 Admit Type: Outpatient Age: 53 Room: Endo 3 Gender: Female Note Status: Finalized Attending MD: Milagros Franco MD, PHD, [id number] Procedure: Upper GI endoscopy Attending Participation: I personally performed the entire procedure. Indications: Dysphagia, Heartburn Providers: Milagros Franco MD, PHD (Doctor), Stacie Johns RN (Nurse), Nawaf Pinzon Electrician Wiring (Electrician Wiring), AVANI Juarez (Anesthesia Staff) Referring MD: Padmaja [...] verified by the physician, the nurse, the forest law and policy professor and the data acquisition technician in the procedure room. Mental Status [...] oxygen saturations were monitored continuously. The Endoscope ([id number]) was introduced through the mouth, and advanced [...] examined (more content not included)... LAB, [facility] Radiology Study observation (narrative) [facility] SURG PATH REQUESTon 04-12-20 24 Case Report Normal [facility] Comment on above: Result Comment: Surg ical Pathology Report Case: [id number] Authorizing Provider: Milagros Franco MD, Collected: 04/12/2024 12:48 PM PhD Ordering Location: Endoscopy Outpatient Care Received: 04/12/2024 12:57 PM [place] Pathologist: Manish Tom MD Specimens: A) - TISSUE, gastric biopsy r/o HP evaluate for eosiniphils (large forceps) B) - TISSUE, GE Junction r/o Barrets (large forceps) Performed By: #### S URGP #### [facility] (DEFAULT) [address] [place] [address] Clinical History Preop Diagnosis: [place] Grade D esophagitis [K20.80]. Early satiety [R68.81]. Unintentional weight loss [R63.4]. Gastroparesis [K31.84]. Medical History: Gastroesophageal reflux disease. Asthma. Benign essential hypertension. History of colectomy. Gastroparesis. Arthritis. Depression. Migraine. Constipation. [facility] Comment on above: Performed By: #### S URGP #### [facility] (DEFAULT) [address] [address] Gross Description [facility] Comment on above: Result Comment: The specimens [...] dimension. TE 1 Lab Use Only: JobID [id number] Grosser for this case was: Carmen Maradiaga Performed By: #### S URGP #### [facility] (DEFAULT) [address] [address] Microscopic Description A microscopic examination was performed. [facility] Comment on above: Performed By: #### S URGP #### [facility] (DEFAULT) [address] [address] Pathologic Diagnosis [facility] Comment on above: Result Comment: A. S tomach, biopsy: Active erosive esophagitis. No Helicobacter pylori organisms identified. B. GE junction, biopsy: Gastroesophageal squamocolumnar junctional mucosa with reflux pattern of injury. No Vega's specialized columnar epithelium (intestinal metaplasia) identified. Performed By: #### S URGP #### [facility] (DEFAULT) [address] [address] Professional Interpretation Performed at: [facility] Comment on above: Result Comment: [facility] For Immediate Release to Patient's [facility]? Yes [address] [address] Performed By: #### S URGP #### [facility] (DEFAULT) [address] [place] [address] 36on 04-10-2024 36 [facility] to schedule Inspire follow up appointment following sleep study on 04/28. Offered 06/05 at 8:30 am or 4:00 pm OR 06/12 at 8:30 am. Normal [facility] Telephoneon 04-10-2024 Telephone [id number] Darrian Leal en 1970 F Date Provider Department [place] 04/10/2024 PAULINE SANTACRUZ [facility] SLEEP [facility] No family history on file Reason for Visit and Comments: Appointment [375] [facility] Follow-Upon 04-03-2024 Follow-Up [id number] Darrian Leal en 1970 F Date Provider Department [place] 04/03/2024 PAULINE SANTACRUZ [facility] No family history on file Level of Service:79648 CT OFFICE/OUTPATIENT ESTABLISHED MOD MDM 30 MIN Reason for Visit and Comments: Follow-up [382755] - Pt has the Inspire and is here for a follow up. She states it is unbelievable how well it is working for her. She is sleeping through the night, which she hasn't done for years. She is here for a few small adjustments, such as moving it from 6 hours of sleep a night to 8. Normal [facility] CBC AND ELECTRONIC DIFFon Basophils (Bld) [#/Vol] 0.04 10*3/uL Normal 0.00-0.15 [facility] Comment on above: Performed By: #### L AB980 #### [facility] (DEFAULT) [address] [place] [address] Basophils/100 WBC (Bld) 0.6 % Normal [facility] Comment on above: Performed By: #### L AB980 #### [facility] (DEFAULT) [address] [place] [address] DIFF STATUS Electronic Differential Normal [facility] Comment on above: Performed By: #### L AB980 #### [facility] (DEFAULT) [address] [place] [address] Eosinophils (Bld) [#/Vol] 0.08 10*3/uL Normal 0.00-0.42 [facility] Comment on above: Performed By: #### L AB980 #### [facility] (DEFAULT) [address] [place] [address] Eosinophils/100 WBC (Bld) 1.2 % Normal [facility] Comment on above: Performed By: #### L AB980 #### [facility] (DEFAULT) [address] [place] [address] Hematocrit (Bld) [Volume fraction] 40.1 % Normal 34.9-44.3 [facility] Comment on above: Performed By: #### L AB980 #### [facility] (DEFAULT) [address] [place] [address] Hemoglobin (Bld) [Mass/Vol] 12.6 g/dL Normal 11.4-15.2 [facility] Comment on above: Performed By: #### L AB980 #### [facility] (DEFAULT) [address] [address] Immature Grans % 0.5 % Normal [facility] Comment on above: Performed By: #### L AB980 #### [facility] (DEFAULT) [address] [place] [address] Immature Grans Absolute < Normal <=0.08 [facility] Comment on above: Performed By: #### L AB980 #### [facility] (DEFAULT) [address] [address] Lymphocytes (Bld) [#/Vol] 2.05 10*3/uL Normal 1.16-3.51 [facility] Comment on above: Performed By: #### L AB980 #### [facility] (DEFAULT) [address] [place] [address] Lymphocytes/100 WBC (Bld) 31.6 % Normal [facility] Comment on above: Performed By: #### L AB980 #### [facility] (DEFAULT) [address] [place] [address] MCV (RBC) [Entitic vol] 86.6 fL Normal 79.6-97.7 [facility] Comment on above: Performed By: #### L AB980 #### [facility] (DEFAULT) [address] [place] [address] Mean Cell Hgb 27.2 pg Normal 25.9-33.9 [facility] Comment on above: Performed By: #### L AB980 #### [facility] (DEFAULT) [address] [place] [address] Mean Cell Hgb Conc 31.4 g/dL Normal 31.4-35.9 [facility] Comment on above: Performed By: #### L AB980 #### [facility] (DEFAULT) [address] [place] [address] Monocytes (Bld) [#/Vol] 0.47 10*3/uL Normal 0.22-0.87 [facility] Comment on above: Performed By: #### L AB980 #### [facility] (DEFAULT) [address] [place] [address] Monocytes/100 WBC (Bld) 7.3 % Normal [facility] Comment on above: Performed By: #### L AB980 #### [facility] (DEFAULT) [address] [place] [address] Nucleated RBC 0.0 /100 WBC Normal <=0.2 [facility] Comment on above: Performed By: #### L AB980 #### [facility] (DEFAULT) [address] [place] [address] Platelet mean volume (Bld) [Entitic vol] 9.3 fL Normal 8.5-12.2 [facility] Comment on above: Performed By: #### L AB980 #### [facility] (DEFAULT) [address] [address] Platelets (Bld) [#/Vol] 370 10*3/uL Normal 150-393 [facility] Comment on above: Performed By: #### L AB980 #### [facility] (DEFAULT) [address] [address] RBC (Bld) [#/Vol] 4.63 10*6/uL Normal 3.91-5.04 [facility] Comment on above: Performed By: #### L AB980 #### [facility] (DEFAULT) [address] [address] RBC Distribution 14.0 % Normal 10.8-14.9 [facility] Comment on above: Performed By: #### L AB980 #### [facility] (DEFAULT) [address] [address] Segs + Bands Auto 58.8 % Normal [facility] Comment on above: Performed By: #### L AB980 #### [facility] (DEFAULT) [address] [address] Segs + Bands,Absolute Auto 3.81 K/uL Normal 1.64-7.28 [facility] Comment on above: Performed By: #### L AB980 #### [facility] (DEFAULT) [address] [address] WBC (Bld) [#/Vol] 6.48 10*3/uL Normal 3.99-11.19 [facility] Comment on above: Performed By: #### L AB980 #### [facility] (DEFAULT) [address] [address] FERRITINon 03-06-2024 Ferritin [Mass/Vol] 9.1 ng/mL Normal 7.3-270.7 [facility] Comment on above: Performed By: #### F ERIB, TSHQR #### [facility] (DEFAULT) [address] [place] [address] HEPATIC FUNCTION PANELon Albumin [Mass/Vol] 4.3 g/dL Normal 3.5-5.0 [facility] Comment on above: Performed By: #### H PAULO, IRBC #### [facility] (DEFAULT) [address] [place] [address] ALP [Catalytic activity/Vol] 87 U/L Normal 32-126 [facility] Comment on above: Performed By: #### H PAULO, IRBC #### [facility] (DEFAULT) [address] [place] [address] ALT [Catalytic activity/Vol] 28 U/L Normal 9-48 [facility] Comment on above: Performed By: #### Sukumar BATES, IRBC #### [facility] (DEFAULT) [address] [place] [address] AST [Catalytic activity/Vol] 27 U/L Normal 10-39 [facility] Comment on above: Performed By: #### H PAULO, IRBC #### [facility] (DEFAULT) [address] [place] [address] Bilirubin [Mass/Vol] 0.4 mg/dL Normal <1.5 [facility] Comment on above: Performed By: #### H PAULO, IRBC #### [facility] (DEFAULT) [address] [place] [address] Bilirubin.indirect [Mass/Vol] 0.1 mg/dL Normal <0.3 [facility] Comment on above: Performed By: #### H PAULO, IRBC #### [facility] (DEFAULT) [address] [place] [address] Protein [Mass/Vol] 6.9 g/dL Normal 6.4-8.3 [facility] Comment on above: Performed By: #### H PAULO, IRBC #### [facility] (DEFAULT) [address] [address] IRON/IRON BINDING/TRANSFERRI Non 03-06-2024 Iron [Mass/Vol] 55 ug/dL Normal 40-174 [facility] Comment on above: Performed By: #### H FP, IRBC #### [facility] (DEFAULT) [address] [address] Iron Saturation 13 % Low 20-55 [facility] Comment on above: Performed By: #### H FP, IRBC #### [facility] (DEFAULT) [address] [address] Total Iron Binding Capacity 440 mcg/dL High 250-425 [facility] Comment on above: Performed By: #### H FP, IRBC #### [facility] (DEFAULT) [address] [address] Transferrin [Mass/Vol] 352 mg/dL Normal 200-400 [facility] Comment on above: Performed By: #### H FP, IRBC #### [facility] (DEFAULT) [address] [address] MOLECULAR STOOL PARASITE GUEVARA Cindy 03-06-2024 Cryptosporidium Parvum/Hominis By Pcr Negative Normal Negative [facility] Comment on above: Order Comment: Colle ct [...] Performed By: #### S CPBP #### [facility] (DEFAULT) [address] [address] Entamoeba Histolytica By Pcr Negative Normal Negative [facility] Comment on above: Order Comment: Colle ct [...] Performed By: #### S CPBP #### [facility] (DEFAULT) [address] [address] Giardia Lamblia By Pcr Negative Normal Negative [facility] Comment on above: Order Comment: Colle ct [...] Performed By: #### S CPBP #### [facility] (DEFAULT) [address] [address] TSH W/FT4 REFLEXon TSH 1.986 uIU/mL Normal 0.550-4.780 [facility] Comment on above: Performed By: #### F ERIB, TSHQR #### [facility] (DEFAULT) [address] [address] VITAMIN D (25-HYDROXY,TOTAL) on 03-06-2024 25-OH Vitamin D Total 22.2 ng/mL Low 30.0-100.0 [facility] Comment on above: Order Comment: Vitam in D values have been shown to be falsely decreased in lipemic samples and should be interpreted with caution. Result Comment: <10 Deficiency 10-29 Insufficiency 30-100 Optimal Level >100 Possible Toxicity Performed By: #### D 25OH #### [facility] (DEFAULT) [address] [address] BACTERIAL VAGINOSIS NAATon 0 02-27-2024 Interpretation and review of laboratory results Normal [facility] Lactobacillus crispatus+gasseri+riri senii + Gardnerella vaginalis + Atopobium vaginae rRNA JOSÉ MIGUEL+probe Ql (Vag fld) Negative Negative for bacterial vaginosis [facility] Lactobacillus crispatus+gasseri+riri senii + Gardnerella vaginalis + Atopobium vaginae rRNA JOSÉ MIGUEL+probe Ql (Vag fld) Negative Normal Negative for bacterial vaginosis [facility] Comment on above: Order Comment: Speci men Type: SWABOrdering Facility: [facility] Address: [address] [place] [address] Performed By: #### B VAMP, CVTV ####[facility] [id number] [place] [address] [place] BETY/TRICHOMONAS NAATon 0 02-27-2024 C. glabrata RNA JOSÉ MIGUEL+probe Ql (Vag fld) Negative Negative for Bety glabrata [facility] Bety sp DNA JOSÉ MIGUEL+probe Ql (Vag fld) Negative Negative for Bety species [facility] Interpretation and review of laboratory results Normal [facility] T. vaginalis DNA JOSÉ MIGUEL+probe Ql (Unsp spec) Negative Negative for Trichomonas vaginalis by amplification [facility] C. glabrata RNA JOSÉ MIGUEL+probe Ql (Vag fld) Negative Normal Negative for Bety glabrata [facility] Comment on above: Order Comment: Speci men Type: SWABOrdering Facility: [facility] Address: [address] [place] [address] Performed By: #### B VAMP, CVTV ####[facility] [id number] [place] [address] [place] Bety sp DNA JOSÉ MIGUEL+probe Ql (Vag fld) Negative Normal Negative for Bety species [facility] Comment on above: Order Comment: Speci men Type: SWABOrdering Facility: [facility] Address: [address] [place] [address] Performed By: #### B VAMP, CVTV ####[facility] [id number] [place] [address] [place] T. vaginalis DNA JOSÉ MIGUEL+probe Ql (Unsp spec) Negative Normal Negative for Trichomonas vaginalis by amplification [facility] Comment on above: Order Comment: Speci men Type: SWABOrdering Facility: [facility] Address: [address] [place] [address] Performed By: #### B VAMP, CVTV ####[facility] [id number] [address] [place] CNOVon 02-27-2024 CNOV Office Visit (SHERON ) MARY LEAL ([id number]) 1970 F Date Time Provider Department 02/27/24 10:00 AM FLOWER LOPEZ During your visit today, we recorded the following information about you: Pulse Blood pressure Weight Height 62/minute 146/93 69.9 kg 1.626 m Flower Lopez APRN.ELECTRICAL JOURNEYMAN 02/27/2024 10:40 AM Signed Female Pelvic Medicine [...] intermittently- somewhat improved. She has worked with [employer] rep re: interstim setting, now on program [...] you received about pain medications helpful? Yes Housing Project Manager offered:Patient declines OBJECTIVE: BP 146/93 Pulse 62 [...] Clear 4 (more content not included)... Normal [facility] UA DIP, URINE (POC)on 2023 BILIRUBIN UA (POCT) Negative Negative [facility] CLARITY UA (POCT) Clear [facility] COLOR UA (POCT) Yellow [facility] GLUCOSE UA (POCT) Negative Negative mg/dL [facility] Hemoglobin Ql (U) Negative Negative [facility] KETONE UA (POCT) Negative Negative mg/dL [facility] LEUKOCYTES UA (POCT) Negative Negative [facility] NITRITE UA (POCT) Negative Negative [facility] PH UA (POCT) 5.5 4.5 - 8.0 [facility] Protein Ql (U) Negative Negative mg/dL [facility] SPECIFIC GRAVITY UA (POCT) >=1.030 1.005 - 1.030 [facility] UROBILINOGEN UA (POCT) 0.2 Normal E.U./dL [facility] Location:[facility], [address] [place] [address], [address] [facility] POINT OF CARE [facility] 29on 02-07-2024 29 Addended by: NATHANAEL MENDOZA on: 02/07/2024 12:01 PM Modules accepted: Orders [facility] Follow-Upon 02-07-2024 Follow-Up [id number] Darrian Leal 1970 F Date Provider Department Center 02/07/2024 Chiara-CHRISTENSENPAULINE [facility] SLEEP [facility] No family history on file Level of Service:26245 CT OFFICE/OUTPATIENT ESTABLISHED [facility] 40 MIN Reason for Visit and Comments: Follow-up [031075] - Pt is here to activate her Inspire PAP. [facility] CNPDianne 01-27-2024 CNPN Telephone (GYNMN) MARY LEAL ([id number]) 1970 F Date Time Provider Department 01/27/24 RADAH DUNHAM [place] During your visit today, we recorded the following information about you: Radha Dunham MD 01/27/2024 10:54 AM Signed Inside Upholsterer Resident Telephone Encounter 01/27/2024 10:44 AM Call [...] Discussed with Dr. Mullins, Urogyn fellow physician media production manager. Radha Dunham MD Obstetrics and Gynecology, PGY1 [...] PM Signed Received fax regarding letter from [employer] stating that on 01/29/24 the patient reported that they felt a zapping sensation in their rectal nerve . Asking that provider answer questions listed on document. Document scanned into [employer]. ThanksKelli Sandra K, RN 03/15/2024 11:27 AM Signed Called pt. Verified name/ Verified requested information and form faxed to [employer] @ [phone] Lili Matias RN March 15, 2024 11:27 [...] idiopathic cons (more content not included)... Normal [facility] ANES POSTPROC EVALon 024 ANES POSTPROC EVAL HNO ID: [id number] Author: BONI MURILLO MD Service: ? Author Type: Anesthesiologist Type: Anesthesia Postprocedure Evaluation Filed: 01/26/2024 09:51 Note Text: POST ANESTHESIA EVALUATION NOTE : 1970 Procedure Summary Date: 01/26/24 Room / Location: [address] [facility] Anesthesia Start: 727 Anesthesia Stop: [...] January 26, 2024 TIME: 9:51 AM CSN: [id number] Normal [facility] ANES PRE-OPon 01-26-2024 ANES PRE-OP HNO ID: [id number] Author: BONI MURILLO MD Service: ? Author [...] 0559 Pulse 73 01/26/24 0559 Resp 16 01/26/2459 Temp 36.5 ?C (97.7 ?F) 01/26/24 0559 [...] January 26, 2024 TIME: 7:06 AM CSN: [id number] Normal [facility] BRIEF OP NOTon 01-26-2024 BRIEF OP NOT HNO ID: [id number] Author: SOFIYA MULLINS MD Service: Urogynecology Author Type: Fellow Type: Brief Op Note Filed: 01/26/2024 08:44 Note Text: BRIEF OPERATIVE / PROCEDURE NOTE LOG ID: [id number] Surgery/Procedure Date: 01/26/2024 Incision/Procedure Start Time: 7:54 AM Incision Close/Procedure End Time: 8:36 AM Surgeon(s)/Procedurali st(s) and Home School Teacher(s): Surgeon(s) and Role: * Pam Wang MD [...] Implant Name Type Inv. Item Serial No. Hand Ii Blocker Lot No. LRB No. Used Action LEAD INTRSTIM MRI 28CM - [id number] Lead LEAD INTRSTIM MRI 28CM [employer] [id number] Left 1 Implanted INTERSTIM X RECHARGE FREE NEUROSTIMULATOR - [id number] Stimulator INTERSTIM X RECHARGE FREE NEUROSTIMULATOR [id number] [employer] Left 1 Implanted Pre-Op/Pre-Procedure Diagnosis: urinary retention, urgency, frequency and nocturia Post-Op/Post-Procedure Diagnosis: same SIGNATURE: Sofiya Mullins MD DATE: January 26, 2024 PATIENT NAME: Mary Leal TIME: 8:42 AM PAGER/CONTACT #: Pager [phone] Normal [facility] HISTORY PHYSICALon HISTORY PHYSICAL HNO ID: [id number] Author: SOFIYA MULLINS MD Service: Urogynecology Author [...] (more content not included)... Normal [facility] NURSING PROGon 01-26-2024 NURSING PROG HNO ID: [id number] Author: DAI CAMPUZANO, RN Service: Nursing Author Type: Registered Nurse Type: Nursing Progress Note Filed: 01/26/2024 09:51 Note Text: 0923 Paged PACU Resident M22-30 Elvis- Could you please place an order for a one time dose of her homegoing [place] [phone] Paged PACU Resident M22-30 Elvis- Could you please place an order for a one time dose of her homegoing [place] [id number] Normal [facility] NURSING PROG HNO ID: [id number] Author: CATRACHO PIERRE RN Service: ? Author Type: Registered Nurse Type: Nursing Progress Note Filed: 01/26/2024 06:41 Note Text: Nursing Progress Note Topic of Note: Daily Note PATIENT NAME: Mary Leal Patient Location: Main - Periop OR/Main - Periop OR Room: Main - Periop OR ([id number]) PAGE SENT: Akiko Wang and Resident sales operations assistant-Pt in M23-37 Mary Leal will need informed consent and H AND P for surgery this morning. Thanks, Catracho [id number] This note was completed by: Catracho Pierre [facility] OPERATIVE NOon 01-26-2024 OPERATIVE NO HNO ID: [id number] Author: PAM WANG MD Service: Urogynecology Author Type: Physician Type: Operative Report Filed: 01/29/2024 10:50 Note Text: OPERATIVE/PROCEDURE REPORT LOG ID: [id number] Surgery/Procedure Date: 01/26/2024 Incision/Procedure Start Time: 7:54 AM Incision Close/Procedure End Time: 8:36 AM Surgeon(s)/Procedurali st(s) and Home School Teacher(s): Surgeon(s) and Role: * Pam Wang MD [...] Implant Name Type Inv. Item Serial No. Hand Ii Blocker Lot No. LRB No. Used Action LEAD INTRSTIM MRI 28CM - [id number] Lead LEAD INTRSTIM MRI 28CM [employer] [id number] Left 1 Implanted INTERSTIM X RECHARGE FREE NEUROSTIMULATOR - [id number] Stimulator INTERSTIM X RECHARGE FREE NEUROSTIMULATOR [id number] [employer] Left 1 Implanted Pre-Op/Pre-Procedure Diagnosis: [...] the S3 foramen until the marker was long-term through the bone. The sacral lead was [...] (more content not included)... Normal [facility] HISTORY PHYSICALon HISTORY PHYSICAL HNO ID: [id number] Author: MAX MARROQUIN PA-C Service: ? Author Type: Physician Home School Teacher Type: H&P Filed: 01/25/2024 09:25 Note Text: PREANESTHESIA CONSULT CLINIC TELEHEALTH VISIT SERVICE DATE: 01/25/2024 SERVICE TIME: 9:02 AM Patient has been identified by name and date of : Yes Reason for contact: PACC visit Accompanied by: Self This is a virtual visit using [employer] Video Visit. It required patient-provider interaction for the medical decision making as documented below. I have communicated my name and active licensure. The patient's identity and physical location were verified at the time of this visit. Either the patient or their legal field representative has been informed of the risks [...] using inspire to get activated 02/07/2024 ) [id number] Score: Age: <65 Sex: female CHF history: No Hypertension history: Yes Stroke/TIA/thromboembo lism history: No Vascular disease history: No Diabetes history: No [id number] Score: 2 ANESTHESIA FINDINGS: Intubation History: No [...] PAST SURGICAL HIST (more content not included)... 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 ([id number]) [address], [address] [place] [address] Calcium [Mass/Vol] 9.3 mg/dL Normal 8.5-10.5 [facility] Comment on above: Performed By: #### B MP #### [facility] ([id number]) [address], [address] [place] [address] Chloride [Moles/Vol] 105 mmol/L Normal 98-109 [facility] Comment on above: Performed By: #### B MP #### [facility] ([id number]) [address], [address] [place] [address] CO2 [Moles/Vol] 28 mmol/L Normal 22-32 [facility] Comment on above: Performed By: #### B MP #### [facility] ([id number]) [address], [address] [place] [address] Creatinine [Mass/Vol] 0.60 mg/dL Normal 0.40-1.00 [facility] Comment on above: Result Comment: METH OD TRACEABLE TO IDMS STANDARD Performed By: #### B MP #### [facility] ([id number]) [address], [address] [place] [address] eGFR (CKD-EPI) NON-RACE DEPENDENT >90 Normal >59 [facility] Comment on above: Result Comment: Reported eGFR is based on the CKD-EPI 1 equation that does not use a race coefficient. Performed By: #### B MP #### [facility] ([id number]) [address], [address] [place] [address] Glucose [Mass/Vol] 85 mg/dL Normal 65-99 [facility] Comment on above: Performed By: #### B MP #### [facility] ([id number]) [address], [address] [place] [address] Potassium [Moles/Vol] 4.2 mmol/L Normal 3.5-5.0 [facility] Comment on above: Performed By: #### B MP #### [facility] ([id number]) [address], [address] [place] [address] Sodium [Moles/Vol] 139 mmol/L Normal 134-146 [facility] Comment on above: Performed By: #### B MP #### [facility] ([id number]) [address], [address] [place] [address] Urea nitrogen [Mass/Vol] 14 mg/dL Normal 5-23 [facility] Comment on above: Performed By: #### B MP #### [facility] ([id number]) [address], [address] [place] [address] Basic Metabolic Panelon 12-07 Anion gap [Moles/Vol] 6 mmol/L 5 - 15 mmol/L [facility] Calcium [Mass/Vol] 9.3 mg/dL 8.5 - 10. 5 mg/dL [facility] Chloride [Moles/Vol] 105 mmol/L 98 - 10 9 mmol/L [facility] CO2 [Moles/Vol] 28 mmol/L 22 - 32 mmol/L [facility] Creatinine [Mass/Vol] 0.60 mg/dL 0.40 - 1.00 mg/dL [facility] Comment on above: METHOD TRACEABLE TO IDMS STANDARD eGFR (CKD-EPI)non-race dependent - PINF [facility] Comment on above: Reported eGFR is based on the CKD-EPI 2020 equation that does not use a race coefficient. Glucose [Mass/Vol] 85 mg/dL 65 - 99 mg/dL [facility] Potassium [Moles/Vol] 4.2 mmol/L 3.5 - 5.0 mmol/L [facility] Sodium [Moles/Vol] 139 mmol/L 134 - 146 mmol/L [facility] Urea nitrogen [Mass/Vol] 14 mg/dL 5 - 23 mg/dL [facility] 12-05-2023 36 Scheduled Inspire activation appointment 02/06 at 9:15 am. [facility] Hussain 11-27-2023 CNPN Telephone (WCTRMN) MARY LEAL ([id number]) 1970 F Date Time Provider Department 11/27/23 PAM WANG TRMN During your visit today, we recorded the following information about you: Amber Trimble 11/27/2023 9:32 AM Signed Patient: Mary Zoya Leal : 1970 Provider: Pam Wang MD Caller Phone #: [phone] (home) [phone] (cell) Reason for call: boyfriend pulled out [...] PNE stimulator stopped connecting so Kim of [employer] said to remove it. She removed the [...] urge [N39.41] Order(s):SURGICAL REQUEST - ELECTIVE (06/2020) [[id number]] Order #: [id number]: 1 Prescriptions as of 11/27/2023 - ARIPiprazole [...] Status:Closed by PAM WANG on 11/27/23 [facility] Hussain 11-25-2023 KWESIN Telephone (GYNMN) ELVISMARY Zoya ([id number]) 1970 F Date Time Provider Department 11/25/23 RADHA DUNHAMMN During your visit today, we recorded the following information about you: Radha Dunham MD 11/25/2023 2:43 PM Signed Inside Upholsterer Resident Telephone Encounter 11/25/2023 2:40 PM Call [...] adequately. Discussed with Dr. Mullins, Urogyn fellow media production manager. Radha Dunham MD Obstetrics and Gynecology, PGY1 Allergies As of Date: 11/25/2023 Noted Allergy Reaction RISPERIDONE 07/27/2021 5 - Intolerance Comments: Breast discharge POISON BRENDA EXTRACT 04/06/2023 2 - Rash Date Reviewed: 10/10/2023 Reviewed by: José Luis Thorpe, MAKI - Fully Assessed Reason for Visit: Patient Question [7480] Prescriptions as of 11/25/2023 - ARIPiprazole monohydrate [...] Status:Closed by RADHA DUNHAM on 11/25/23 Normal [facility] hepatobiliary w pharmon 0 11-23-2023 [place] hepatobiliary w pharm [facility] [place] [address] Nuclear Medicine Report Signed Patient: Mary Leal MR#: [id number] : 1970 Acct:[id number] Age/Sex: 53 / F ADM Date: 11/23/23 Loc: [place] Room: Type: [facility] Attending Dr: Eagle Vazquez DO Copies to: Quinton Melendez Jr, DO Paul C Laffay, DO Ordering Provider: Eagle Vazquez DO Date of Service: 11/23/23 [place] hepatobiliary w pharm: RUQ pain, Nausea HIDA [...] is 68%. Normal is greater than 40%. [place] hepatobiliary w pharm IMPRESSION: Normal HIDA scan. Impression dictated by: Quinton Melendez Jr., D.O.11/23/2023 11:56 AM Dictation Location: [facility]-12 Transcribed By: [facility] 11/23/23 1156 Dictated By: Quinton Melendez Jr, DO 11/23/23 1155 Signed By: 11/23/23 1156 Normal [facility] CNOVon 11-21-2023 CNOV Office Visit (GUMAIN ) ELVISMARY Kenny ([id number]) 1970 F Date Time Provider Department 11/21/23 [...] Voiding dysfunction [N39.8] Order(s):UA DIP, URINE (POC) [1685595] Order #: [id number]. #:[id number] [] ondansetron orally disintegrating 4 mg tab(s) (ZOFRAN ODT)Disp: Rfl: Prescriptions as of 11/21/2023 - ARIPiprazole monohydrate (ABILIFLeah MAINTENA) 300 mg sers injection Inject 300 [...] (more content not included)... Normal [facility] BI MAMMOGRAM SCREENING TOMOS YNTHESIS BILATERALon [...] IS VERY IMPORTANT TO YOUR HEALTH. THE [employer] GUIDELINES RECOMMEND THAT WOMEN 40 [...] DO Normal Not Available Documentationon 10-12-2023 Documentation [id number] Darrian Leal 1970 F Date Provider Department Center 10/12/2023 KarliGIANA MORALES [facility] Gerardo Heal No family history on file Normal [facility] CNOVon 10-10-2023 CNOV Office Visit (SHERON ) MARY LEAL ([id number]) 1970 F Date Time Provider Department 10/10/23 [...] PFSH obtained by others. Pam Wang MD Housing Project Manager offered: Patient declines. OBJECTIVE: BP 102/60 [...] would like to move forward with PNE. [employer] packet given to patient today to review. [...] which included preparing to see the patient, [id number] patient care, completing clinical (more content not included)... Normal [facility] XR CHEST 2 VIEWSon 3 XR CHEST 2 VIEWS FINDINGS: Comparison, June 09, 2021. Intervertebral disc space device again identified lower cervical spine. Cardiopericardial silhouette normal. Pulmonary vasculature normal. Lungs clear. IMPRESSION: Impression: No acute cardiopulmonary disease. ELECTRONICALLY SIGNED BY: Angel Strauss MD Normal Not Available [facility]ARY LE[facility] ([id number]) 1970 F Date Time Provider Department 09/12/23 PAM WANG [facility] During your visit today, we recorded [...] which included preparing to see the patient, [id number] patient care, completing clinical documentation, obtaining and/or [...] Office will call to schedule cystoscopy. Urogynecology [facility] Main provided: Pam Wang Staff Physician, Department [...] Diagnosis:History of suburethral sling procedure [Z98.890] Order(s):CYSTOSCOPY [facility] [[id number]] Order #: [id number] Prescriptions as of 09/12/2023 - atenolol (TENORMIN) [...] (more content not included)... Normal [facility] CNOVon 09-11-2023 CNOV Office Visit (UROSMN ) MARY LEAL ([id number]) 1970 F Date Time Provider Department 09/11/23 11:00 AM AJIRON LAI During your visit today, we recorded [...] Jenifer Barry RN 09/11/2023 11:37 AM Signed [facility] URODYNAM[facility] LAB URODYNAMIC [...] allergy: No Females- Is patient : No Housing Project Manager offered:Patient declines B/O UA: YES DIP: [...] Jairon Lai MD 09/11/2023 1:18 PM Signed [facility] FOR FEMALE [...] Jairon Lai MD Referring Provider: PAM WANG [[id number]] Allergies As of Date: 09/11/2023 Noted Allergy Reaction RISPERIDONE 07/27/2021 5 - Intolerance Comments: Breast discharge POISON BREDNA EXTRACT 04/06/2023 2 - Rash Date Reviewed: 09/11/2023 Reviewed by: Jenifer Barnard RN - Fully Assessed Reason for Visit: Consult [173] Primary Visit Diagnosis:Urinary urgency [R39.15] Prescriptions as of 09/11/2023 - atenolol (TENORMIN) 25 mg tablet Take 1 tablet by mouth every afternoon. - AJOVY AUTOINJECTOR 225 mg/1.5 mL auto-injector inject 1 AND 1/2 milliliters subcut (more content not included)... Normal [facility] BASIC METABOLIC PANELon 10-0 Anion gap [Moles/Vol] 1 mmol/L Low 8-12 [facility] Comment on above: Performed By: #### 4 [id number], [id number], [id number], [id number] #### [address] [address] Calcium [Mass/Vol] 9.2 mg/dL Normal 8.4-10.4 [facility] Comment on above: Performed By: #### 4 [id number], [id number], [id number], [id number] #### [facility] [address] [place] [address] [place] Chloride [Moles/Vol] 105 mmol/L Normal 96-109 [facility] Comment on above: Performed By: #### 4 [id number], [id number], [id number], [id number] #### [facility] [address] [place] [address] [place] CO2 [Moles/Vol] 32 mmol/L High 22-30 [facility] Comment on above: Performed By: #### 4 [id number], [id number], [id number], [id number] #### [address] [place] [address] [place] Creatinine [Mass/Vol] 0.67 mg/dL Normal 0.52-1.04 [facility] [place] [facility] Comment on above: Performed By: #### 4 [id number], [id number], [id number], [id number] #### [facility] [address] [place] [address] [place] GLOMERULAR FILTRATION RATE ML/MIN/1.73 SQ M.PREDICTED >90.0 Normal >=60.0 [facility] Comment on above: Result Comment: eGFR calculation [...] Kidney Int Suppl.2013;3:1-150 Performed By: #### 4 [id number], [id number], [id number], [id number] #### [address] [place], [place] [address] Glucose [Mass/Vol] 104 mg/dL High 65-100 [facility] Comment on above: Performed By: #### 4 [id number], [id number], [id number], [id number] #### [facility] [address] [place] [address] Potassium [Moles/Vol] 4.6 mmol/L Normal 3.6-5.1 [facility] Comment on above: Performed By: #### 4 [id number], [id number], [id number], [id number] #### [address] [place] [address] [facility] Sodium [Moles/Vol] 138 mmol/L Normal 135-147 [facility] Comment on above: Performed By: #### 4 [id number], [id number], [id number], [id number] #### [address] [place] [address] [facility] Urea nitrogen [Mass/Vol] 16 mg/dL Normal 8-26 [facility] Comment on above: Performed By: #### 4 [id number], [id number], [id number], [id number] #### [address] [place] [address] [facility] Basic metabolic panel aka Ch em 808-12-2023 Anion gap [Moles/Vol] 1 mmol/L Low 8 - 12 mmol/L [facility] Calcium [Mass/Vol] 9.2 mg/dL 8.4 - 10. 4 mg/dL [facility] Calcium hydrogen phosphate dihydrate crystals LM Ql (Urine sed) 16 mg/dL 8 - 26 mg/dL [facility] Chloride [Moles/Vol] 105 mmol/L 96 - 10 9 mmol/L [facility] CO2 (BldMV) [Moles/Vol] 32 mmol/L High 22 - 30 mmol/L [facility] Creatinine [Mass/Vol] 0.67 mg/dL 0.52 - 1.04 mg/dL [facility] GFR/1.73 sq M.predicted MDRD (S/P/Bld) [Vol rate/Area] - PINF [facility] Comment on above: eGFR calculation bas ed [...] 104 mg/dL High 65 - 100 mg/dL [facility] Interpretation and review of laboratory results Abnormal [facility] Potassium [Moles/Vol] 4.6 mmol/L 3.6 - 5.1 mmol/L [facility] Sodium [Moles/Vol] 138 mmol/L 135 - 147 mmol/L [facility] [facility] CBC AND DIFFERENTIALon 08-12 ABSOLUTE BASOPHIL 0.0 x10*3/uL Normal 0.0-0.1 [facility] Comment on above: Performed By: #### 4 [id number] #### [address] [place] [address] [place] ABSOLUTE EOSINOPHIL 0.1 x10*3/uL Normal 0.1-0.3 [facility] Comment on above: Performed By: #### 4 [id number] #### [address] [place], [place] [address] ABSOLUTE IMMATURE GRANULOCYTES 0.0 x10*3/uL Normal 0.0-0.1 [facility] Comment on above: Performed By: #### 4 [id number] #### [address] ABSOLUTE LYMPH 1.6 x10*3/uL Normal 1.2-3.3 [facility] [place][[facility] 2] System Comment on above: Performed By: #### 4 [id number] #### [address] ABSOLUTE MONO 0.3 x10*3/uL Normal 0.2-0.6 [facility] [place][note 2] System Comment on above: Performed By: #### 4 [id number] #### [address] ABSOLUTE NEUTROPHIL 3.1 x10*3/uL Normal 2.4-6.6 [facility] Comment on above: Performed By: #### 4 [id number] #### [address] Basophils/100 WBC (Bld) 0.8 % Normal [facility] Comment on above: Performed By: #### 4 [id number] #### [address] Eosinophils/100 WBC (Bld) 2.7 % Normal [facility] Comment on above: Performed By: #### 4 [id number] #### [address] Erythrocyte distribution width (RBC) [Ratio] 13.0 % Normal 11.5-14.5 [facility] Comment on above: Performed By: #### 4 [id number] #### [address] Hematocrit (Bld) [Volume fraction] 37.5 % Normal 33.6-46.8 [facility] Comment on above: Performed By: #### 4 [id number] #### [address] Hemoglobin (Bld) [Mass/Vol] 11.8 g/dL Normal 11.7-15.8 [facility] Comment on above: Performed By: #### 4 [id number] #### [address] Immature granulocytes/100 WBC (Bld) 0.4 % Normal [facility] Comment on above: Performed By: #### 4 [id number] #### [address] Lymphocytes/100 WBC (Bld) 31.5 % Normal [facility] Comment on above: Performed By: #### 4 [id number] #### [address] MCH (RBC) [Entitic mass] 26.5 pg Low 27.5-32.3 [facility] Comment on above: Performed By: #### 4 [id number] #### [address] MCHC (RBC) [Mass/Vol] 31.5 g/dL Normal 30.7-35.5 [facility] Comment on above: Performed By: #### 4 [id number] #### [address] MCV (RBC) [Entitic vol] 84.3 fL Normal 80.2-99 [facility] Comment on above: Performed By: #### 4 [id number] #### [address] Monocytes/100 WBC (Bld) 5.4 % Normal [facility] Comment on above: Performed By: #### 4 [id number] #### [address] Neutrophils/100 WBC (Bld) 59.2 % Normal [facility] Comment on above: Performed By: #### 4 [id number] #### [address] NUCLEATED RED BLOOD CELLS AUTO 0.0 % Normal 0.0-1.0 [facility] Comment on above: Performed By: #### 4 [id number] #### [address] PLATELET COUNT 299 x10*3/uL Normal 150-400 [facility] Comment on above: Performed By: #### 4 [id number] #### [address] RED BLOOD CELL COUNT 4.45 x10*6/uL Normal 3.60-5.20 [facility] Comment on above: Performed By: #### 4 [id number] #### [address] WHITE BLOOD CELLS 5.2 x10*3/uL Normal 4.3-10.3 [facility] Comment on above: Performed By: #### [id number] #### [address] CBC with differentialOrdered By: Background Lab on 08-12-2023 Absolute Immature Granulocytes 0.0 [facility] [place][note 2] System Age [Time] 84.3 fL 80.2 - 99 fL [facility] [place][note 2] System Age [Time] 26.5 pg Low 27.5 - 32.3 pg [facility] [place][note 2] System Age [Time] 31.5 g/dL 30.7 - 35.5 g/dL [facility] B. burgdorferi IgM IB Ql (CSF) 31.5 % [facility] [place][note 2] System Basophils (Bld) [#/Vol] 0.0 10*3/uL [facility] Basophils/100 WBC (Body fld) 0.8 % [facility] [place][note 2] System Eosinophils (Bld) [#/Vol] 1.6 10*3/uL [facility] [place][note 2] System Eosinophils (Bld) [#/Vol] 0.3 10*3/uL [facility] [place][note 2] System Eosinophils (Bld) [#/Vol] 0.1 10*3/uL [facility] [place][note 2] System Eosinophils/100 WBC (Bld) 2.7 % [facility] [place][note 2] System Erythrocyte distribution width (RBC) [Ratio] 13.0 % 11.5 - 14.5 % [facility] Hematocrit (Bld) [Volume fraction] 37.5 % 33.6 - 46.8 % [facility] [place][note 2] System Hexanoylglycine (U) [Moles/Vol] 11.8 g/dL 11.7 - 15.8 g/dL [facility] Immature granulocytes/100 WBC (Bld) 0.4 % [facility] Interpretation and review of laboratory results Abnormal [facility] Monocytes/100 WBC (Bld) 5.4 % [facility][note 2] Anacomp Neurotensin (P) [Mass/Vol] 59.2 % [facility] Neutrophils (Bld) [#/Vol] 3.1 10*3/uL [facility] Nucleated RBC/100 WBC (Bld) [Ratio] 0.0 % 0.0 - 1.0 % [facility] Platelets (Bld) [#/Vol] 299 10*3/uL [facility] RBC (Bld) [#/Vol] 4.45 10*6/uL [facility] WBC (Bld) [#/Vol] 5.2 10*3/uL [facility] ABDOMEN PELVIS WITH IV CO [...] Omni 300 100 ml Normal [facility] HEPATIC FUNCTION PANELon Albumin [Mass/Vol] 4.0 g/dL Normal 3.5-5.0 [facility] Comment on above: Performed By: #### 4 [id number], [id number], [id number], [id number] #### [address] ALK PHOS 104 U/L Normal 24-126 [facility] Comment on above: Performed By: #### 4 [id number], [id number], [id number], [id number] #### [address] [id number] ALT [Catalytic activity/Vol] 50 U/L High 4-35 [facility] Comment on above: Performed By: #### 4 [id number], [id number], [id number], [id number] #### [address] AST [Catalytic activity/Vol] 59 U/L High 3-47 [facility] Comment on above: Performed By: #### 4 [id number], [id number], [id number], [id number] #### [address] Bilirubin [Mass/Vol] 0.1 mg/dL Low 0.2-1.6 [facility] Comment on above: Performed By: #### 4 [id number], [id number], [id number], [id number] #### [address] Bilirubin.indirect [Mass/Vol] 0.1 mg/dL Normal <=0.5 [facility] Comment on above: Performed By: #### 4 [id number], [id number], [id number], [id number] #### [address] Protein [Mass/Vol] 6.6 g/dL Normal 6.3-8.2 [facility] Comment on above: Performed By: #### 4 [id number], [id number], [id number], [id number] #### [address] Hepatic Function Panelon Albumin (Syn fld) [Mass/Vol] 4.0 g/dL 3.5 - 5.0 g/dL [facility] Aldosterone (U) [Mass/Vol] 104 U/L 24 - 126 U/L [facility] ALT [Catalytic activity/Vol] 50 U/L High 4 - 35 U/L [facility] AST [Catalytic activity/Vol] 59 U/L High 3 - 47 U/L [facility] Bilirubin [Mass/Vol] 0.1 mg/dL Low 0.2 - 1 .6 mg/dL [facility] Bilirubin.conjugated [Mass/Vol] 0.1 mg/dL NINF - 0.5 mg/dL [facility] Protein [Mass/Vol] 6.6 g/dL 6.3 - 8.2 g/dL [facility] LIPASEon 08-12-2023 Lipase [Catalytic activity/Vol] 11 U/L Low 23-300 [facility] Comment on above: Performed By: #### 4 [id number], [id number], [id number], [id number] #### [address] Lipaseon 08-12-2023 Lipase [Catalytic activity/Vol] 11 U/L Low 23 - 300 U/L [facility] No Panel Informationon 08-12 Extra Tube Hold for add-ons. [facility] Interpretation and review of laboratory results Abnormal [facility] POCT ED/FC/GSC Urine PregOrd ered By: Della Hays on 08-12-2023 Beta HCG ( test) Ql (U) Negative [facility] Interpretation and review of laboratory results Normal [facility] Server Administrator Acceptable yes [facility] TROPONIN Ion 08-12-2023 Troponin I.cardiac [Mass/Vol] ng/mL Normal <=0.033 [facility] Comment on above: Result Comment: Nega tive: No detectable troponin-I. Performed By: #### 4 [id number] #### [place] [address] [place] TROPONIN I SERIESon 08-12-20 Troponin I.cardiac [Mass/Vol] ng/mL Normal <=0.033 [facility] Comment on above: Result Comment: Nega tive: No detectable troponin-I. Performed By: #### 4 [id number], [id number], [id number], [id number] #### [place] [address] [place] Troponin I (One time)on Interpretation and review of laboratory results Normal [facility] Troponin I.cardiac [Mass/Vol] ng/mL NINF - 0.033 ng/mL [facility] Comment on above: Negative: No detectable troponin-I. [facility] Troponin I - Series (X 3)on 08-12-2023 Interpretation and review of laboratory results Normal [facility] Troponin I.cardiac [Mass/Vol] ng/mL NINF - 0.033 ng/mL [facility] Comment on above: Negative: No detectable troponin-I. [facility] URINALYSIS WITH REFLEX CULTU REon 08-12-2023 Appearance (U) Clear Normal [facility] Comment on above: Performed By: #### 4 [id number] #### [address] BILIRUBIN UA Negative Normal Negative [facility] [place][note 2] System Comment on above: Performed By: #### 4 [id number] #### [address] Color (U) Yellow Normal [facility] [place][note 2] System Comment on above: Performed By: #### 4 [id number] #### [address] Glucose Ql (U) Negative Normal Negative [facility] [place][note 2] System Comment on above: Performed By: #### 4 [id number] #### [address] Ketones Ql (U) Negative Normal Negative [facility] [place][note 2] System Comment on above: Performed By: #### 4 [id number] #### [address] LEUKOESTERASE Negative Normal Negative [facility] [place][note 2] System Comment on above: Performed By: #### 4 [id number] #### [address] MUCOUS-URINE Occasional Normal [facility] [place][note 2] System Comment on above: Performed By: #### 4 [id number] #### [address] Nitrite Ql (U) Negative Normal Negative [facility][note 2] System Comment on above: Performed By: #### 4 [id number] #### [address] OCCULT BLD Negative Normal Negative [facility][note 2] System Comment on above: Performed By: #### 4 [id number] #### [address] PH, URINE 5.0 Normal [facility][note 2] System Comment on above: Performed By: #### 4 [id number] #### [address] Protein Ql (U) Negative Normal Negative [facility][note 2] System Comment on above: Performed By: #### 4 [id number] #### [address] RBC LM.HPF (Urine sed) [#/Area] /[HPF] Normal <=5 [facility] [place][note 2] System Comment on above: Performed By: #### 4 [id number] #### [address] SPECIFIC GRAVITY, URINE 1.025 Normal [facility] Comment on above: Performed By: #### 4 [id number] #### [address] SQUAMOUS EPI CELLS 51 /LPF Normal [facility] System Comment on above: Performed By: #### 4 [id number] #### [address] UROBILINOGEN UA Negative Normal <2.0 [facility] Comment on above: Performed By: #### 4 [id number] #### [address] WBC LM.HPF (Urine sed) [#/Area] 2 /[HPF] Normal <=5 [facility] Comment on above: Performed By: #### 4 [id number] #### [address] Urinalysis complete W Reflex Culture panel (U)on 08-12-2023 Acetone [Mass/Vol] Negative Negative [facility] System Appearance (Body fld) Clear [facility] Bilirubin Ql (U) Negative Negative [facility] Color (Stone) Yellow [facility][note 2] System G6PD (RBC) [Catalytic activity/Vol] Negative Negative [facility] Hemoglobin Ql (U) [facility] Leukocyte esterase Test strip Ql (U) Negative Negative [facility] Mucor racemosus IgE Qn (S) Occasional /LPF [facility][note 2] System Nitrite Test strip (U) [Mass/Vol] Negative Negative [facility] [place][note 2] System pH (Migue fld) 5.0 [facility][note 2] System Protein (U) [Mass/Vol] Negative Negative [facility] [place] IgE Qn (S) Negative Negative [facility] System Specific gravity (U) [Rel density] 1.025 [facility] Spherocytes LM Ql (Bld) 51 /LPF [facility] Urobilinogen Qn (U) Negative [facility] - 2.0 [facility] System WBC (U) [#/Vol] 2 /uL [facility] CNOVon 07-31-2023 CNOV Office Visit (GUMROBERT ) MARY LEAL ([id number]) 1970 F Date Time Provider Department 07/31/23 2:30 PM NELSY CHÁVEZ During your visit today, we recorded the following information about you: Pulse Blood pressure Weight Height 76/minute 136/96 69.9 kg 1.626 m Nelsy Chávez APRN.ELECTRICAL JOURNEYMAN 07/31/2023 5:35 PM Signed Female Pelvic Medicine [...] new Pain: no Abnormal Vaginal Discharge: no 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 She has no history of an abnormal mammogram with cysts on US LMP: No LMP recorded. Patient has had a hysterectomy.; Menopause 3 years ago; hysterectomy in 2015: Menstrual history: NA; Deliveries: I have confirmed and edited as necessary, the PFSH obtained by others. Nelsy Chávez APRN.ELECTRICAL JOURNEYMAN Housing Project Manager offered: Patient declines. OBJECTIVE: There were [...] which included preparing to see the patient, [id number] patient care, completing clinical documentation, performing a medically appropriate examination, counseling and educating the patient/family/[facility] and ordering medications, tests, or procedures. [...] [R35.0] Nocturia [R35.1] Order(s):UA DIP, URINE (POC) [[id number]] Order #: [id number]. #:[id number] [facility] [[id number]] Order #: [id number] Prescriptions as of 07/31/2023 - atenolol (TENORMIN) [...] (more content not included)... Normal [facility] UA DIP, URINE (POC)on 2022 BILIRUBIN UA (POCT) Negative Negative [facility] CLARITY UA (POCT) Clear [facility] COLOR UA (POCT) Yellow [facility] GLUCOSE UA (POCT) Negative Negative mg/dL [facility] Hemoglobin Ql (U) Negative Negative [facility] KETONE UA (POCT) Negative Negative mg/dL [facility] LEUKOCYTES UA (POCT) Negative Negative [facility] NITRITE UA (POCT) Negative Negative [facility] PH UA (POCT) 5.0 4.5 - 8.0 [facility] Protein Ql (U) Negative Negative mg/dL [facility] SPECIFIC GRAVITY UA (POCT) 1.010 1.005 - 1.030 [facility] UROBILINOGEN UA (POCT) 0.2 E.U./dL Normal E.U./dL [facility] Office Visit (Cardiology)on 06-13-2023 Follow-up visit Diagnoses/Problems Assessed Chest pain (786.50) (R07.9) Elevated troponin (790.6) (R77.8) Fatigue (780.79) (R53.83) Never a smoker Overweight with body mass index (BMI) of 27 to 27.9 in adult (278.02,V85.23) (E66.3,Z68.27) Orders Elevated troponin IO EKG Electrocardiogram- 12 Lead; Status:Active - Perform Order,Retrospective Authorization; Requested for:[id number]; Overweight with body mass index (BMI) of 27 to 27.9 in adult Healthy Weight Tips; Status:Complete - Retrospective Authorization; Done: [id number] Some eating tips that can help you lose weight.; Status:Complete - Retrospective Authorization; Done: [id number] SocHx: Never a smoker Tobacco Use Screening; Status:Complete; Done: [id number] Patient Instructions Please bring all medicines, vitamins, [...] currently being investigated at [facility] (now her fourth GI specialist). Last year while in [place] she had similar issues with elevated troponins in the ED and underwent heart catheterization that did not reveal any specific significant disease, details of the discharge summary are reviewed She underwent recent stress perfusion imaging at [facility], the report is reviewed, she has no [...] investigate the troponin rise at [facility] however I believe this is likely a non-[place] troponin elevation, likely associated with underlying inflammatory [...] negative for complaint. Vitals Vital Signs Recorded: [id number] 10:37AM Heart Rate70, Apical Svruohmm090, RUE, Sitting Jldxwyuqk72, RUE, Sitting Height5 ft 4 in Gxlfpj171 lb BMI Nkarabfyac60.46 kg/m2 BSA Calculated1.78 Tobacco Useb) No PHQ-2 [...] Screening.on 023 Adult depression screening assessment No [facility] [address] DO Work Phone: Adult depression screening assessment Yes [facility] [address] DO Work Phone: Adult depression screening assessment Moderate (10-14) [facility] [address] DO Work Phone: Fall risk assessment a) No falls within the last year [facility] [address] DO Work Phone: Tobacco use status CP b) No [facility] [address] DO Work Phone: Tobacco Screening. 1-Several days [facility] [address] DO Work Phone: Tobacco Screening. 3-Nearly every day [facility] [address] DO Work Phone: Tobacco Screening. 0-Not at all [facility] [address] DO Work Phone: Tobacco Screening. Somewhat Difficult [facility] [address] DO Work Phone: STR cardiac stress/lexiscano n 06-09-2023 STR cardiac stress/lexiscan [facility] [place] [address] Cardiac Stress Test Signed Patient: Mary Leal MR#: [id number] : 1970 Acct:[id number] Age/Sex: 53 / F ADM Date: 06/05/23 Loc: ER Room: Type: [facility] ER Attending Dr: Copies to: DO Marielle Soto MD, [facility] Ordering Provider: Anibal Valle DO Date of [...] 06/09/23 1614 Dictated By: Marielle Scruggs MD, FACC 06/09/23 1550 Signed By: 06/10/23 0903 Normal [facility] NM mirtha perf SPECT rest stron 06-08-2023 NM mirtha perf SPECT rest str [facility] [place] [address] [place] [address] Nuclear Medicine Report Signed Patient: Mary Leal MR#: [id number] : 1970 Acct:[id number] Age/Sex: 53 / F ADM Date: 06/05/23 Loc: ER Room: Type: [facility] ER Attending Dr: Copies to: DO Marielle Soto MD, [facility] Ordering Provider: Anibal Valle DO Date of [...] available for comparison. Transcribed By: KINSEY 06/08/23 9545 Dictated By: Marielle Scruggs MD, FACC 06/08/23 1540 Signed By: 06/09/23 1532 Normal [facility] Activated partial thrombopla stin time (aPTT) in platelet poor plasma by coagulation aOrdered By: Anibal Valle on 06-05-2023 aPTT Coag (PPP) [Time] 28.0 s 25.1-36.5 [facility] Automated basophil %Ordered By: Anibal Valle on 06-05-2023 Basophils/100 WBC (Bld) 0.4 % Normal . [facility] Comment on above: Performed By: #### H S TROP, BNP, BMP, CBC, PTT, PT #### [address] Automated basophil countOrde red By: Anibal Valle on 06-05-2023 Basophils (Bld) [#/Vol] 0.0 10*3/uL Normal 0.0-0.2 [facility] Comment on above: Result Comment: PERF ORMED BY: [address] [place] [address] PATHOLOGIST YOUTH OFFICER LEVAR CASE M.D. Performed By: #### H S TROP, BNP, BMP, CBC, PTT, PT #### [address] Automated blood monocyte cou ntOrdered By: Anibal Valle on 06-05-2023 Monocytes (Bld) [#/Vol] 0.3 10*3/uL Normal 0.0-0.8 [facility] Comment on above: Performed By: #### H S TROP, BNP, BMP, CBC, PTT, PT #### [address] Automated eosinophil %Ordere d By: Anibal Valle on 06-05-2023 Eosinophils/100 WBC (Bld) 1.9 % Normal . [facility] Comment on above: Performed By: #### H S TROP, BNP, BMP, CBC, PTT, PT #### [address] Automated eosinophil countOr dered By: Anibal Valle on 06-05-2023 Eosinophils (Bld) [#/Vol] 0.1 10*3/uL Normal 0.0-0.45 [facility] Comment on above: Performed By: #### H S TROP, BNP, BMP, CBC, PTT, PT #### [facility] [address] Automated monocyte %Ordered By: Anibal Valle on 06-05-2023 Monocytes/100 WBC (Bld) 7.5 % Normal . [facility] Comment on above: Performed By: #### H S TROP, BNP, BMP, CBC, PTT, PT #### [facility] [address] Automated neutrophil %Ordere d By: Anibal Valle on 06-05-2023 Neutrophils/100 WBC (Bld) 49.2 % Normal . [facility] Comment on above: Performed By: #### H S TROP, BNP, BMP, CBC, PTT, PT #### [address] BNP ser/plasOrdered By: Anibal Valle on 06-05-2023 Natriuretic peptide B (Bld) [Mass/Vol] 39.0 pg/mL Normal 5-100 [facility] Comment on above: Result Comment: PERF ORMED BY: [place] [address] PATHOLOGIST YOUTH OFFICER LEVAR CASE M.D. Performed By: #### H S TROP, BNP, BMP, CBC, PTT, PT ####[address] Basic Metabolic Panelon 07- Creatinine Clr Calc Pharmacy 97.82 Normal [facility] Comment on above: Result Comment: PERF ORMED BY: [place] [address] PATHOLOGIST YOUTH OFFICER LEVAR CASE M.D. Performed By: #### H S TROP, BNP, BMP, CBC, PTT, PT #### [address] GFR/1.73 sq M.predicted MDRD (S/P/Bld) [Vol rate/Area] mL/min/{1.73_m2} Normal [facility] Comment on above: Performed By: #### H S TROP, BNP, BMP, CBC, PTT, PT #### [facility] [address] Calcium [Mass/volume] in Ser um or PlasmaOrdered By: Anibal Valle on 06-05-2023 Calcium [Mass/Vol] 9.0 mg/dL Normal 8.6-10.3 [facility] Comment on above: Performed By: #### H S TROP, BNP, BMP, CBC, PTT, PT #### [facility] [address] Carbon dioxide, total [Moles /volume] in Serum or PlasmaOrdered By: Anibal Valle on 06-05-2023 CO2 [Moles/Vol] 23.2 mmol/L Normal 21.0-31.0 [facility] Comment on above: Performed By: #### H S TROP, BNP, BMP, CBC, PTT, PT #### [address] Chloride [Moles/volume] in S jay or PlasmaOrdered By: Anibal Valle on 06-05-2023 Chloride [Moles/Vol] 108 mmol/L High 98-107 [facility] Comment on above: Performed By: #### H S TROP, BNP, BMP, CBC, PTT, PT #### [address] Complete Blood Count Auto Di ffon 06-05-2023 Mean Corpuscular HGB Conc 34.5 g/dL Normal 32.0-35.0 [facility] Comment on above: Performed By: #### H S TROP, BNP, BMP, CBC, PTT, PT #### [place] [address] [place] Monocytes/100 WBC (Bld) 24.18 % High 0.00-20.00 [facility] Comment on above: Result Comment: For adults in ED, MDW > 20.0 may be associated with a higher risk of sepsis during the first 12 hrs of hospital admission Performed By: #### H S TROP, BNP, BMP, CBC, PTT, PT #### [facility] [address] NRBC% 0.1 /100{WBC} Normal 0-0.5 [facility] Comment on above: Performed By: #### H S TROP, BNP, BMP, CBC, PTT, PT #### [facility] [address] Creatinine [Mass/volume] in Serum or PlasmaOrdered By: Anibal Valle on 06-05-2023 Creatinine [Mass/Vol] 0.67 mg/dL Normal 0.60-1.20 [facility] Comment on above: Performed By: #### H S TROP, BNP, BMP, CBC, PTT, PT #### [facility] [address] ECG 12 lead ECGon 06-05-2023 ECG 12 lead ECG [facility] [place] [address] [place] [address] Electrocardiograph Report Signed Patient: Mary Leal MR#: [id number] 863 : 1970 Acct:[id number] Age/Sex: 53 / F ADM Date: 06/05/23 Loc: ER Room: Type: [facility] Attending Dr: Ordering Provider: Olayinka Corado [...] was found Confirmed by ANIBAL VALLE DO ([id number]) on 06/05/2023 4:21:05 PM Referred By: Electronically Signed By:ANIBAL VALLE DO Transcribed By: MUS Signed By Anibal Valle DO 06/05 162 Normal [facility] ECG 12 lead ECG [facility] [place] [address] [place] [address] Electrocardiograph Report Signed Patient: Mary Leal MR#: [id number] 863 : 1970 Acct:[id number] Age/Sex: 53 / F ADM Date: 06/05/23 Loc: ER Room: Type: [facility] ER Attending Dr: Ordering Provider: Anibal Valle [...] was found Confirmed by ANIBAL VALLE DO ([id number]) on 06/05/2023 4:21:06 PM Referred By: Electronically Signed By:ANIBAL VALLE DO Transcribed By: MUS Signed By Anibal Valle DO 06/05 Normal [facility] Erythrocyte distribution wid th [Ratio] by Automated countOrdered By: Anibal Valle on 06-05-2023 Erythrocyte distribution width (RBC) [Ratio] 13.9 % Normal 11.9-15.3 [facility] Comment on above: Performed By: #### H S TROP, BNP, BMP, CBC, PTT, PT #### [facility] [address] [place] [address] [place] Erythrocytes [#/volume] in B lood by Automated countOrdered By: Anibal Valle on 06-05-2023 RBC (Bld) [#/Vol] 4.29 10*6/uL Normal 3.60-5.00 [facility] Comment on above: Performed By: #### H S TROP, BNP, BMP, CBC, PTT, PT #### [facility] [address] [place] [address] [place] Glucose [Mass/volume] in Ser um or PlasmaOrdered By: Anibal Valle on 06-05-2023 Glucose [Mass/Vol] 106 mg/dL High 70-100 [facility] Comment on above: ADA recommended refe renagus rangeRandom Glucose Reference Range is dependent on time and content of last meal. Glucose of more than 200 mg/dL in a nonstressed, ambulatory subject supports the diagnosis of Diabetes Mellitus. Result Comment: [place] om Glucose Reference Range is dependent on time and content of last meal. Glucose of more than 200 mg/dL in a nonstressed, ambulatory subject supports the diagnosis of Diabetes Mellitus. ADA recommended reference range Performed By: #### H S TROP, BNP, BMP, CBC, PTT, PT #### [facility] [address] [place] [address] Hematocrit [Volume Fraction] of Blood by Automated countOrdered By: Anibal Valle on 06-05-2023 Hematocrit (Bld) [Volume fraction] 34.4 % Normal 34.0-46.4 [facility] Comment on above: Performed By: #### H S TROP, BNP, BMP, CBC, PTT, PT #### [facility] [address] Hemoglobin [Mass/volume] in BloodOrdered By: Anibal Valle on 06-05-2023 Hemoglobin (Bld) [Mass/Vol] 11.9 g/dL Normal 11.8-15.4 [facility] Comment on above: Performed By: #### H S TROP, BNP, BMP, CBC, PTT, PT #### [facility] [address] [place] [address] Leukocytes [#/volume] correc herbert for nucleated erythrocytes in Blood by Automated counOrdered By: Anibal Valle on 06-05-2023 WBC corrected for nucl RBC Auto (Bld) [#/Vol] 4.4 10*3/uL 3.8-11.6 [facility] Leukocytes [#/volume] in Blo od by Automated countOrdered By: Anibal Valle on 06-05-2023 WBC (Bld) [#/Vol] 4.4 10*3/uL Normal 3.8-11.6 [facility] Comment on above: Performed By: #### H S TROP, BNP, BMP, CBC, PTT, PT #### [facility] [address] [place] [address] [place] Lymphocytes [#/volume] in Bl ood by Automated countOrdered By: Anibal Valle on 06-05-2023 Lymphocytes (Bld) [#/Vol] 1.8 10*3/uL Normal 1.00-4.8 [facility] Comment on above: Performed By: #### H S TROP, BNP, BMP, CBC, PTT, PT #### [address] Lymphocytes/100 leukocytes i n Blood by Automated countOrdered By: Anibal Valle on 06-05-2023 Lymphocytes/100 WBC (Bld) 41.0 % Normal . [facility] Comment on above: Performed By: #### H S TROP, BNP, BMP, CBC, PTT, PT #### [address] MCH [Entitic mass] by Automa herbert countOrdered By: Anibal Valle on 06-05-2023 MCH (RBC) [Entitic mass] 27.7 pg Normal 24.7-34.3 [facility] Comment on above: Performed By: #### H S TROP, BNP, BMP, CBC, PTT, PT #### [address] MCHC Auto (RBC) [Mass/Vol]Or dered By: Anibal Valle on 06-05-2023 MCHC (RBC) [Mass/Vol] 34.5 g/dL 32.0-35.0 [facility] MCV [Entitic volume] by Auto mated countOrdered By: Anibal Valle on 06-05-2023 MCV (RBC) [Entitic vol] 80.2 fL Normal 80-100 [facility] Comment on above: Performed By: #### H S TROP, BNP, BMP, CBC, PTT, PT #### [place] [address] [place] Monocyte distribution width [Entitic volume] in Blood by AutomatedOrdered By: Anibal Valle on 06-05-2023 Monocyte distribution width Auto (Bld) [Entitic vol] 24.18 % 0.00-20.00 [facility] Comment on above: For adults in ED, MD W > 20.0 may be associated with a higher risk of sepsis during the first 12 hrs of hospital admission Neutrophils [#/volume] in Bl ood by Automated countOrdered By: Anibal Valle on 06-05-2023 Neutrophils (Bld) [#/Vol] 2.2 10*3/uL Normal 1.8-7.7 [facility] Comment on above: Performed By: #### H S TROP, BNP, BMP, CBC, PTT, PT #### [facility] [address] [place] [address] No Panel InformationOrdered By: Anibal Valle on 06-05-2023 Estimated GFR (CKD-EPI) > 60.0 mL/Min [facility] Creatinine Clearance (Chem 97.82 [facility] Nucleated erythrocytes [Pres ence] in Blood by Automated countOrdered By: Anibal Valle on 06-05-2023 Nucleated RBC Auto Ql (Bld) 0.1 /100{WBC} 0-0.5 [facility] Partial Thromboplastin Timeo n 06-05-2023 aPTT Coag (Bld) [Time] 28.0 s Normal 25.1-36.5 [facility] Comment on above: Result Comment: PERF ORMED BY: [place] [address] PATHOLOGIST YOUTH OFFICER LEVAR CASE M.D. Performed By: #### H S TROP, BNP, BMP, CBC, PTT, PT #### [facility] [address] [place] [address] Platelet mean volume [Entiti c volume] in Blood by Automated countOrdered By: Anibal Valle on 06-05-2023 Platelet mean volume (Bld) [Entitic vol] 7.4 fL Normal 6.3-10.7 [facility] Comment on above: Performed By: #### H S TROP, BNP, BMP, CBC, PTT, PT #### [address] Platelet poor plasma interna tional normalized ratio (INR) by coagulation assay (relatOrdered By: Anibal Valle on 06-05-2023 INR Coag (PPP) [Relative time] 1.0 {INR} Normal [facility] Comment on above: INR Therapeutic [...] TROP, BNP, BMP, CBC, PTT, PT #### [facility] [address] Platelets [#/volume] in Bloo d by Automated countOrdered By: Anibal Valle on 06-05-2023 Platelets (Bld) [#/Vol] 336 10*3/uL Normal 150-450 [facility] Comment on above: Performed By: #### H S TROP, BNP, BMP, CBC, PTT, PT #### [facility] [address] Potassium [Moles/volume] in Serum or PlasmaOrdered By: Anibal Valle on 06-05-2023 Potassium [Moles/Vol] 3.8 mmol/L Normal 3.5-5.1 [facility] Comment on above: Performed By: #### H S TROP, BNP, BMP, CBC, PTT, PT #### [facility] [address] [place] [address] Prothrombin Time INROrdered By: Anibal Valle on 06-05-2023 PT Coag (PPP) [Time] 12.0 s Normal 9.0-12.9 [facility] Comment on above: Performed By: #### H S TROP, BNP, BMP, CBC, PTT, PT #### [facility] [address] Serum or plasma anion gap de terminationOrdered By: Anibal Valle on 06-05-2023 Anion gap [Moles/Vol] 10.6 mmol/L Normal 6.0-15.0 [facility] Comment on above: Performed By: #### H S TROP, BNP, BMP, CBC, PTT, PT #### [address] Sodium [Moles/volume] in Ser um or PlasmaOrdered By: Anibal Valle on 06-05-2023 Sodium [Moles/Vol] 138 mmol/L Normal 136-145 [facility] Comment on above: Performed By: #### H S TROP, BNP, BMP, CBC, PTT, PT #### [address] Troponin I High Sensitivityo n 06-05-2023 Troponin I High Sensitivity 2.5 pg/mL Normal 0.0-15.0 [facility] Comment on above: Result Comment: PERF ORMED BY: [place] [address] PATHOLOGIST YOUTH OFFICER LEVAR CASE M.D. Performed By: #### H S TROP ####[address] Troponin I High Sensitivity 2.6 pg/mL Normal 0.0-15.0 [facility] Comment on above: Result Comment: PERF ORMED BY: [place] [address] PATHOLOGIST YOUTH OFFICER LEVAR CASE M.D. Performed By: #### H S TROP, BNP, BMP, CBC, PTT, PT ####[place] [id number] [facility] Troponin I.cardiac [Mass/vol ume] in Serum or Plasma by Detection limit <= 0.01 ng/Ordered By: Anibal Valle on 06-05-2023 Troponin I.cardiac DL <= 0.01 ng/mL [Mass/Vol] 2.6 pg/mL 0.0-15.0 [facility] Urea nitrogen [Mass/volume] in Serum or PlasmaOrdered By: Anibal Valle on 06-05-2023 Urea nitrogen [Mass/Vol] 10 mg/dL Normal 7-25 [facility] Comment on above: Performed By: #### H S TROP, BNP, BMP, CBC, PTT, PT #### [facility] [address] XR chest 1V portableon 06-05 XR chest 1V portable [facility] [place] [address] [place] [address] XRay Report Signed Patient: Mary Leal MR#: [id number] 863 : 1970 Acct:[id number] Age/Sex: 53 / F ADM Date: 06/05/23 [...] Andres Bullard M.D.06/05/2023 9:53 AM Dictation Location: [place] [address] Transcribed By: [facility] 06/05/2353 Dictated By: Andrse Bullard DO 06/05/2352 Signed By: 06/05/2353 Normal [facility] CBC AUTO DIFFon 04-05-2023 BASO # 0.0 103/ul Normal 0.0-0.1 [facility] Comment on above: Performed By: #### L ACT #### [facility] [address] [place] [address] [address] Mirian Velasco Basophils/100 WBC (Bld) 0.8 % Normal 0.2-2.0 [facility] Comment on above: Performed By: #### L ACT #### [facility] [address] [place] [address] Dr. Mirian Velasco EO # 0.1 103/ul Normal 0.0-0.7 [facility] Comment on above: Performed By: #### L ACT #### [facility] [address] [place] [address] Dr. Mirian Velasco Eosinophils/100 WBC (Bld) 1.1 % Normal 0.9-7.0 [facility] Comment on above: Performed By: #### L ACT #### [facility] [address] [place] [address] Dr. Mirian Velasco Erythrocyte distribution width (RBC) [Ratio] 13.1 % Normal 11.0-15.0 [facility] Comment on above: Performed By: #### L ACT #### [facility] [address] [place] [address] Dr. Mirian Velasco Hematocrit (Bld) [Volume fraction] 37.6 % Normal 36.0-48.0 [facility] Comment on above: Performed By: #### L ACT #### [facility] [address] [place] [address] Dr. Mirian Velasco Hemoglobin (Bld) [Mass/Vol] 12.4 g/dL Normal 12.0-16.0 [facility] Comment on above: Performed By: #### L ACT #### [facility] [address] [place] [address] Dr. Mirian Velasco IG # 0.01 10e3/ul Normal 0.00-0.03 [facility] Comment on above: Performed By: #### L ACT #### [facility] [address] [place] [address] Dr. Mirian Velasco IG % 0.2 % Normal 0.0-0.5 [facility] Comment on above: Performed By: #### L ACT #### [facility] [address] [place] [address] Dr. Mirian Velasco LYMPH # 2.5 103/ul Normal 1.2-3.8 [facility] Comment on above: Performed By: #### L ACT #### [facility] [address] [place] [address] Dr. Mirian Velasco Lymphocytes/100 WBC (Bld) 46.2 % Normal 20.5-60.0 [facility] Comment on above: Performed By: #### L ACT #### [facility] [address] [place] [address] Dr. Mirian Velasco MANUAL DIFF REQ NO Normal [facility] Comment on above: Performed By: #### L ACT #### [facility] [address] [place] [address] Dr. Mirian Velasco MCH (RBC) [Entitic mass] 27.1 pg Normal 26.7-34.0 [facility] Comment on above: Performed By: #### L ACT #### [facility] [address] [place] [address] Dr. Mirian Velasco MCHC (RBC) [Mass/Vol] 33.0 g/dL Normal 29.9-35.2 [facility] Comment on above: Performed By: #### L ACT #### [facility] [address] [place] [address] Dr. Mirian Velasco MCV (RBC) [Entitic vol] 82.3 fL Normal 81.0-99.0 [facility] Comment on above: Performed By: #### L ACT #### [facility] [address] [place] [address] Dr. Mirian Velasco MONO # 0.4 103/ul Normal 0.3-0.8 [facility] Comment on above: Performed By: #### L ACT #### [facility] [address] [place] [address] Dr. Mirian Velasco Monocytes/100 WBC (Bld) 7.9 % Normal 1.7-12.0 [facility] Comment on above: Performed By: #### L ACT #### [facility] [address] [place] [address] Dr. Mirian Velasco NEUT # 2.3 103/ul Normal 1.4-6.5 [facility] Comment on above: Performed By: #### L ACT #### [facility] [address] [place] [address] [address] Mirian Velasco Neutrophils/100 WBC (Bld) 43.8 % Normal 43.0-75.0 [facility] Comment on above: Performed By: #### L ACT #### [facility] [address] [place] [address] [address] Mirian Velasco Platelet mean volume (Bld) [Entitic vol] 9.2 fL Critically low 9.5-13.5 [facility] Comment on above: Performed By: #### L ACT #### [facility] [address] [place] [address] [address] Mirian Velasco PLT 318 103/ul Normal 150-450 [facility] Comment on above: Performed By: #### L ACT #### [facility] [address] [place] [address] [address] Mirian Velasco RBC 4.57 106/ul Normal 4.20-5.40 [facility] Comment on above: Performed By: #### L ACT #### [facility] [address] [place] [address] [address] Mirian Velasco WBC 5.3 103/ul Normal 4.0-11.0 [facility] Comment on above: Performed By: #### L ACT #### [facility] [address] [place] [address] [address] Mirian Velasco PROF CHEM 8 (BAS METB)on Anion gap [Moles/Vol] 19.0 mmol/L Normal [facility] Comment on above: Performed By: #### H STROPN, BMP ####[facility] [address] [place] [address]Dr. Mirian Velasco Calcium [Mass/Vol] 9.6 mg/dL Normal 8.5-10.1 [facility] Comment on above: Performed By: #### H STROPN, BMP ####[facility] [address] [place] [address]Dr. Mirian Velasco Chloride [Moles/Vol] 103 mmol/L Normal 98-107 [facility] Comment on above: Performed By: #### H FAUSTO, BMP ####[facility] [address] [place] [address]Dr. Mirian Velasco CO2 [Moles/Vol] 23.1 mmol/L Normal 21.0-32.0 [facility] Comment on above: Performed By: #### Sukumar LAMBERT, BMP ####[facility] [address] [place] [address]Dr. Mirian Velasco Creatinine [Mass/Vol] 0.84 mg/dL Normal 0.55-1.02 [facility] Comment on above: Performed By: #### Sukumar LAMBERT, BMP ####[facility] [address] [place] [address]Dr. Mercedesnatalie Velasco EGFR-AF AUSTRIAN >60 Normal >=60 [facility] Comment on above: Performed By: #### Sukumar LAMBERT, BMP ####[facility] [address] [place] [address]Dr. Mirian Velasco EGFR-NON AF AUSTRIAN >60 Normal >=60 [facility] Comment on above: Performed By: #### Sukumar LAMBERT, BMP ####[facility] [address] [place], [place] [address]Dr. Mirian Velasco Glucose [Mass/Vol] 129 mg/dL Critically high 74-106 [facility] Comment on above: Performed By: #### Sukumar LAMBERT, BMP ####[facility] [address] [place] [address]Dr. Mirian Velasco Potassium [Moles/Vol] 3.1 mmol/L Critically low 3.5-5.1 [facility] Comment on above: Performed By: #### Sukumar LAMBERT, BMP ####[facility] [address] [place] [address]Dr. Mirian Velasco Sodium [Moles/Vol] 142 mmol/L Normal 136-145 [facility] Comment on above: Performed By: #### Sukumar LAMBERT, BMP ####[facility] [address] [place] [address]Dr. Mirian Velasco Urea nitrogen [Mass/Vol] 12.0 mg/dL Normal 7.0-18.0 [facility] Comment on above: Performed By: #### H FAUSTO, BMP ####[facility] [address] [place] [address]DrReno Velasco Urea nitrogen/Creatinine [Mass ratio] 14.3 mg/mg Normal [facility] Comment on above: Performed By: #### H FAUSTO, BMP ####[facility] [address] [place] [address]Dr. Mirian Velasco TROPONIN, HIGH SENSITIVITYon 04-05-2023 HSTROP 5.6 pg/mL Normal 4.0-51.3 [facility] Comment on above: Result Comment: CUT- OFF POINTS HAVE BEEN ESTABLISHED BASED ON THE FOURTH UNIVERSAL DEFINITIONS OF MYOCARDIAL INFARCTION. THE UPPER REFERENCE LIMIT (URL) OF TROPONIN, DEFINED THE 99TH PERCENTILE OF cTnI DISTRIBUTION IN A REFERENCE POPULATION, HAS BEEN CONFIRMED THE DECISION THRESHOLD FOR [place] DIAGNOSIS. Performed By: #### H FAUSTO, BMP ####[facility] [address] [place] [address]Dr. Mirian Velasco CBC AUTO DIFFon 03-06-2023 BASO # 0.1 103/ul Normal 0.0-0.1 [facility] Comment on above: Performed By: #### L ACT #### [facility] [address] [place] [address] Dr. Mirian Velasco Basophils/100 WBC (Bld) 0.8 % Normal 0.2-2.0 [facility] Comment on above: Performed By: #### L ACT #### [facility] [address] [place] [address] Dr. Mirian Velasco EO # 0.1 103/ul Normal 0.0-0.7 [facility] Comment on above: Performed By: #### L ACT #### [facility] [address] [place] [address] Dr. Mirian Velasco Eosinophils/100 WBC (Bld) 1.4 % Normal 0.9-7.0 [facility] Comment on above: Performed By: #### L ACT #### [facility] [address] [place] [address] Dr. Mirian Velasco Erythrocyte distribution width (RBC) [Ratio] 13.1 % Normal 11.0-15.0 [facility] Comment on above: Performed By: #### L ACT #### [facility] [address] [place] [address] Dr. Mirian Velasco Hematocrit (Bld) [Volume fraction] 37.9 % Normal 36.0-48.0 [facility] Comment on above: Performed By: #### L ACT #### [facility] [address] [place] [address] Dr. Mirian Velasco Hemoglobin (Bld) [Mass/Vol] 12.7 g/dL Normal 12.0-16.0 [facility] Comment on above: Performed By: #### L ACT #### [facility] [address] [place] [address] Dr. Mirian Velasco IG # 0.01 10e3/ul Normal 0.00-0.03 [facility] Comment on above: Performed By: #### L ACT #### [facility] [address] [place] [address] Dr. Mirian Velasco IG % 0.2 % Normal 0.0-0.5 [facility] Comment on above: Performed By: #### L ACT #### [facility] [address] [place] [address] Dr. Mirian Velasco LYMPH # 1.8 103/ul Normal 1.2-3.8 [facility] Comment on above: Performed By: #### L ACT #### [facility] [address] [place] [address] Dr. Mirian Velasco Lymphocytes/100 WBC (Bld) 27.2 % Normal 20.5-60.0 [facility] Comment on above: Performed By: #### L ACT #### [facility] [address] [place] [address] Dr. Mirian Velasco MANUAL DIFF REQ NO Normal [facility] Comment on above: Performed By: #### L ACT #### [facility] [address] [place] [address] Dr. Mirian Velasco MCH (RBC) [Entitic mass] 27.5 pg Normal 26.7-34.0 [facility] Comment on above: Performed By: #### L ACT #### [facility] [address] [address] [address] Mirian Velasco MCHC (RBC) [Mass/Vol] 33.5 g/dL Normal 29.9-35.2 [facility] Comment on above: Performed By: #### L ACT #### [facility] [address] [place] [address] Dr. Mirian Velasco MCV (RBC) [Entitic vol] 82.0 fL Normal 81.0-99.0 [facility] Comment on above: Performed By: #### L ACT #### [facility] [address] [place] [address] Dr. Mirian Velasco MONO # 0.4 103/ul Normal 0.3-0.8 [facility] Comment on above: Performed By: #### L ACT #### [facility] [address] [place] [address] Dr. Mirian Velasco Monocytes/100 WBC (Bld) 5.5 % Normal 1.7-12.0 [facility] Comment on above: Performed By: #### L ACT #### [facility] [address] [place] [address] Dr. Mirian Velasco NEUT # 4.3 103/ul Normal 1.4-6.5 [facility] Comment on above: Performed By: #### L ACT #### [facility] [address] [place] [address] Dr. Mirian Velasco Neutrophils/100 WBC (Bld) 64.9 % Normal 43.0-75.0 [facility] Comment on above: Performed By: #### L ACT #### [facility] [address] [place] [address] Dr. Mirian Velasco Platelet mean volume (Bld) [Entitic vol] 9.4 fL Critically low 9.5-13.5 [facility] Comment on above: Performed By: #### L ACT #### [facility] [address] [address] [address] Mirian Velasco PLT 317 103/ul Normal 150-450 [facility] Comment on above: Performed By: #### L ACT #### [facility] [address] [address] [address] Mirian Velasco RBC 4.62 106/ul Normal 4.20-5.40 [facility] Comment on above: Performed By: #### L ACT #### [facility] [address] [place] [address] Dr. Mirian Velasco WBC 6.6 103/ul Normal 4.0-11.0 [facility] Comment on above: Performed By: #### L ACT #### [facility] [address] [place] [address] Dr. Mirian Velasco CULTURE BLOODon 03-06-2023 Microscopic examination of blood, culture Culture Observations: NO GROWTH AT 5 DAYS. Normal [facility] Comment on above: Performed By: #### B LDCX2 ####[facility] [address] [address]Dr. Mirian Velasco Microscopic examination of blood, culture Culture Observations: NO GROWTH AT 5 DAYS. Normal [facility] Comment on above: Performed By: #### B LDCX1 #### [facility] [address] [place] [address] Dr. Mirian Velasco LACTATE/LACTIC ACIDon 2022 Lactate [Moles/Vol] 2.2 mmol/L Critically high 0.4-2.0 [facility] Comment on above: Performed By: #### L ACT #### [facility] [address] [place] [address] Dr. Mirian Velasco LIPASEon 03-06-2023 Lipase [Catalytic activity/Vol] 53.0 U/L Critically low 73.0-393.0 [facility] Comment on above: Performed By: #### L ACT #### [facility] [address] [place] [address] Dr. Mirian Velasco PROF 14(COMP METB)on 023 Albumin [Mass/Vol] 3.4 g/dL Normal 3.4-5.0 [facility] Comment on above: Performed By: #### L ACT #### [facility] [address] [address] [address] Mirian Velasco Albumin/Globulin [Mass ratio] 1.0 {ratio} Normal [facility] Comment on above: Performed By: #### L ACT #### [facility] [address] [address] [address] Mirian Velasco ALP [Catalytic activity/Vol] 123 U/L Critically high 46-116 [facility] Comment on above: Performed By: #### L ACT #### [facility] [address] [address] [address] Mirian Velasco ALT [Catalytic activity/Vol] 33 U/L Normal 14-59 [facility] Comment on above: Performed By: #### L ACT #### [facility] [address] [place] [address] Dr. Mirian Velasco Anion gap [Moles/Vol] 13.1 mmol/L Normal [facility] Comment on above: Performed By: #### L ACT #### [facility] [address] [place] [address] Dr. Mirian Velasco AST [Catalytic activity/Vol] 31 U/L Normal 15-37 [facility] Comment on above: Performed By: #### L ACT #### [facility] [address] [place] [address] Dr. Mirian Velasco Bilirubin [Mass/Vol] 0.3 mg/dL Normal 0.2-1.0 [facility] Comment on above: Performed By: #### L ACT #### [facility] [address] [place] [address] Dr. Mirian Velasco Calcium [Mass/Vol] 8.9 mg/dL Normal 8.5-10.1 [facility] Comment on above: Performed By: #### L ACT #### [facility] [address] [place] [address] Dr. Mirian Velasco Chloride [Moles/Vol] 107 mmol/L Normal 98-107 [facility] Comment on above: Performed By: #### L ACT #### [facility] [address] [address] [address] Mirian Velasco CO2 [Moles/Vol] 25.6 mmol/L Normal 21.0-32.0 [facility] Comment on above: Performed By: #### L ACT #### [facility] [address] [address] [address] Mirian Velasco Creatinine [Mass/Vol] 0.70 mg/dL Normal 0.55-1.02 [facility] Comment on above: Performed By: #### L ACT #### [facility] [address] [address] [address] Mirian Velasco EGFR-AF AUSTRIAN >60 Normal >=60 [facility] Comment on above: Performed By: #### L ACT #### [facility] [address] [place] [address] Dr. Mirian Velasco EGFR-NON AF AUSTRIAN >60 Normal >=60 [facility] Comment on above: Performed By: #### L ACT #### [facility] [address] [address] [address] Mirian Velasco Globulin (S) [Mass/Vol] 3.4 g/dL Normal [facility] Comment on above: Performed By: #### L ACT #### [facility] [address] [address] [address] Mirian Velasco Glucose [Mass/Vol] 125 mg/dL Critically high 74-[address] [facility] Comment on above: Performed By: #### L ACT #### [facility] [address] [address] [address] Mirian Velasco Potassium [Moles/Vol] 3.7 mmol/L Normal 3.5-5.1 [facility] Comment on above: Performed By: #### L ACT #### [facility] [address] [place] [address] Dr. Mirian Velasco Protein [Mass/Vol] 6.8 g/dL Normal 6.4-8.2 [facility] Comment on above: Performed By: #### L ACT #### [facility] [address] [place] [address] Dr. Mirian Velasco Sodium [Moles/Vol] 142 mmol/L Normal 136-145 [facility] Comment on above: Performed By: #### L ACT #### [facility] [address] [place] [address] Dr. Mirian Velasco Urea nitrogen [Mass/Vol] 16.0 mg/dL Normal 7.0-18.0 [facility] Comment on above: Performed By: #### L ACT #### [facility] [address] [place] [address] Dr. Mirian Velasco Urea nitrogen/Creatinine [Mass ratio] 22.9 mg/mg Normal [facility] Comment on above: Performed By: #### L ACT #### [facility] [address] [place] [address] Dr. Mirian Velasco PROTIMEon 03-06-2023 INR Coag (PPP) [Relative time] {INR} Normal [facility] Comment on above: Performed By: #### P T #### [facility] [address] [place] [address] Dr. Mirian Velasco INR GUIDELINES SEE BELOW Normal [facility] Comment on above: Result Comment: SAMEER RED INR: 2.0 - 3.0 CONDITIONS NOT LISTED BELOW 2.5 - 3.5 FOR PROSTHETIC HEART VALVE REPLACEMENT 2.5 - 3.5 RECURRENT THROMBOSIS Performed By: #### P T #### [facility] [address] [place] [address] Dr. Mirian Velasco PT Coag (PPP) [Time] 9.8 s Normal 9.0-11.6 [facility] Comment on above: Performed By: #### P T #### [facility] [address] [place] [address] Dr. Mirian Velasco TROPONIN, HIGH SENSITIVITYon 03-06-2023 HSTROP 4.4 pg/mL Normal 4.0-51.3 [facility] Comment on above: Result Comment: CUT- OFF POINTS HAVE BEEN ESTABLISHED BASED ON THE FOURTH UNIVERSAL DEFINITIONS OF MYOCARDIAL INFARCTION. THE UPPER REFERENCE LIMIT (URL) OF TROPONIN, DEFINED THE 99TH PERCENTILE OF cTnI DISTRIBUTION IN A REFERENCE POPULATION, HAS BEEN CONFIRMED THE DECISION THRESHOLD FOR [place] DIAGNOSIS. Performed By: #### L ACT #### [facility] [address] [address] [address] Mirian Velasco Bacteria identified Aer cx N om (Unsp spec)Ordered By: Niecy Duron on 03-02-2023 Superficial Wound Culture Methicillin Resis Staph Aureus [facility] CT LSPINE WO CONon 3 CT LSPINE [...] 06:42 Normal [facility] XR ESOPHAGRAMon 12-26-2022 [facility] NURSING PROGon 12-08-2022 NURSING PROG HNO ID: [id number] Author: Lisa Contreras RN Service: Nursing Author Type: Registered Nurse Type: Nursing Progress Note Filed: 12/08/2022 11:28 AM Note Text: [facility] ENDOSCOPY POST PROCEDURE FOLLOW UP CALL [phone] (home) Date Phone Call Made: 12/08/2022 Attempt: [...] more pleasant? No Lisa Contreras RN Normal [facility] ANES POSTPROC EVALon 023 ANES POSTPROC EVAL HNO ID: [id number] Author: Andres Sheets DO Service: Anesthesiology Author Type: Anesthesiologist Type: Anesthesia Postprocedure Evaluation Filed: 12/07/2022 12:44 PM Note Text: POST ANESTHESIA EVALUATION NOTE : 1970 Procedure Summary Date: 12/07/22 Room / Location: [facility] Anesthesia Start: 1034 Anesthesia Stop: 1055 [...] December 07, 2022 TIME: 12:44 PM CSN: [id number] [facility] ANES PRE-OPon 12-07-2022 ANES PRE-OP HNO ID: [id number] Author: Andres Sheets DO Service: Anesthesiology Author Type: Anesthesiologist Type: Anesthesia Preprocedure Evaluation Filed: 12/07/2022 9:42 AM Note Text: ANESTHESIOLOGY DAY OF SURGERY NOTE : 1970 Procedure Information Date/Time: 12/07/22 1030 Scheduled providers: Winston Hannah DO Procedures: EGD - THERAPEUTIC, EUS, OR TUBE INTERVENTIONS PH MONTIEL INSERT OFF MEDS Location: [facility] Estimated body mass index is 24.55 [...] December 07, 2022 TIME: 9:40 AM CSN: [id number] [facility] HISTORY PHYSICALon HISTORY PHYSICAL HNO ID: [id number] Author: Soraida Mathis PA-C Service: Gastroenterology Author Type: Physician Home School Teacher Type: HANDP Filed: 12/07/2022 9:48 AM Note [...] PAIN, N/V/D Medication reconciliation list reviewed in [facility]. Past medical history, past surgical history, social history and family history reviewed and updated in [facility]. ALLERGIES Allergies: Risperidone Intolerance Comment:Breast [...] Mary Leal DATE: 12/07/2022 TIME: 9:41 AM [facility] Upper GI endoscopyon [address] [facility] Gastrointestinal Endoscopy Patient Name: Mary [...] by the physician, the nurse and the forest law and policy professor in the pre-procedure area in the endoscopy [...] previously scheduled. Procedure Code(s): --- Professional --- 88131, Esophagogastroduodenos copy, flexible, transoral; with dilation of gastric/duodenal stricture(s) (eg, balloon, bougie) Diagnosis Code(s): --- Professional --- K21.00, Gastro-esophageal reflux disease with esophagitis, without bleeding K31.84, Gastroparesis CPT copyright 2020 [employer]. All rights reserved. The codes documented in this report are preliminary and upon investigation specialist review may be revised to meet current compliance requirements. Attending Participation: I personally performed the entire procedure. Scope In: 10:39:12 AM Scope Out: 10:46:13 AM MD Winston Diaz MD 12/07/2022 10 (more content not included)... Normal [facility] ANES POSTPROC EVALon 023 ANES POSTPROC EVAL HNO ID: [id number] Author: Annabel Burton MD Service: Anesthesiology Author Type: Physician Type: Anesthesia Postprocedure Evaluation Filed: 12/05/2022 2:01 PM Note Text: POST ANESTHESIA EVALUATION NOTE : 1970 Procedure Summary Date: 12/05/22 Room / Location: [facility] Anesthesia Start: 900 Anesthesia Stop: 917 [...] December 05, 2022 TIME: 2:00 PM CSN: [id number] [facility] ANES PRE-OPon 12-05-2022 ANES PRE-OP HNO ID: [id number] Author: Annabel Burton MD Service: Anesthesiology Author Type: Physician Type: Anesthesia Preprocedure Evaluation Filed: 12/05/2022 8:28 AM Note Text: ANESTHESIOLOGY DAY OF SURGERY NOTE : 1970 Procedure Information Date/Time: 12/05/22 0900 Scheduled providers: Isra Masters DO Procedure: SIGMOIDOSCOPY Location: [facility] Estimated body mass index is 24.55 [...] December 05, 2022 TIME: 8:26 AM CSN: [id number] Normal [facility] Flexible Sigmoidoscopyon Flexible sigmoidoscopy [facility] Gastrointestinal Endoscopy Patient Name: Mary Leal Procedure Date: 12/05/2022 8:55 AM Date of : 1970 Admit Type: Outpatient Age: 52 Room: [address] [address] Gender: Female Note Status: Finalized Attending MD: [...] present medications. Procedure Code(s): --- Professional --- 56792, 52, Sigmoidoscopy, flexible; diagnostic, including collection of specimen(s) by brushing or washing, when performed (separate procedure) Diagnosis Code(s): --- Professional --- K59.00, Constipation, unspecified CPT copyright 2020 [employer]. All rights reserved. The codes documented in this report are preliminary and upon investigation specialist review may be revised to meet current compliance requirements. Attending Participation: I personally performed the entire procedure. Scope In: 9:07:04 AM Scope Out: 9:09:45 AM DO Isra Chen DO 12/05/2022 9:13:05 AM This report has been signed electronically by Isra Masters DO Number of Addenda: 0 Note Initiated On: 12/05/2022 8:55 AM Estimated Blood Loss: Estimated blood loss: none. Normal [facility] HISTORY PHYSICALon HISTORY PHYSICAL HNO ID: [id number] Author: Lashanda Dorado PA-C Service: Gastroenterology Author Type: Physician Home School Teacher Type: HANDP Filed: 12/05/2022 8:43 AM Note [...] PAIN, N/V/D Medication reconciliation list reviewed in [facility]. Past medical history, past surgical history, social history and family history reviewed and updated in [facility]. ALLERGIES Allergies: Risperidone Intolerance Comment:Breast [...] [place] DATE: 12/05/2022 TIME: 8:42 AM Normal [facility] NURSING PROGon 12-05-2022 NURSING PROG HNO ID: [id number] Author: Lisa Contreras RN Service: ? Author Type: Registered Nurse Type: Nursing Progress Note Filed: 12/05/2022 1:07 PM Note Text: [facility] ENDOSCOPY PRE PROCEDURE CALL Akiko. I'm calling from [facility] endoscopy to provide you with the information for your surgery/procedure tomorrow. 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 yes When anesthesia or sedation is being given: Patient instructed you must have an adult wagon driver because you will not be able to work or drive for the rest of the day after your test.yes Can you please confirm the name and relationship of your wagon driver. tbd What is the best number for your wagon driver to be reached at tomorrow for updates? tbd Your wagon driver is allowed to wait here with [...] Do not wear makeup, lotion, or finger bolivian. yes Patient instructed: Please bring a list [...] given Any barriers to Patient learning (confusion? Customs Import Specialist needed?): Patient/Patient Seasonal Recruiter responded appropriately on phone. If patient needs to reschedule please call: [phone] [facility] phone number: [phone] Type of instruction given: Verbal by telephone contact. Normal [facility] NURSING PROGon 12-02-2022 NURSING PROG HNO ID: [id number] Author: Isra Harman RN Service: ? Author Type: Registered Nurse Type: Nursing Progress Note Filed: 12/02/2022 10:54 AM Note Text: [facility] ENDOSCOPY PRE PROCEDURE CALL Akiko. I'm calling from [facility] endoscopy to provide you with the information for your surgery/procedure tomorrow. 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 yes When anesthesia or sedation is being given: Patient instructed you must have an adult wagon driver because you will not be able to work or drive for the rest of the day after your test.yes Can you please confirm the name and relationship of your wagon driver. Rich What is the best number for your wagon driver to be reached at tomorrow for updates? [phone] Your wagon driver is allowed to wait here with [...] must be done on Monday.) Did you picker your bowel prep pt calling office [...] Do not wear makeup, lotion, or finger bolivian. yes Patient instructed: Please bring a list [...] given Any barriers to Patient learning (confusion? Customs Import Specialist needed?): Patient/Patient Seasonal Recruiter responded appropriately on phone. If patient needs to reschedule please call: [phone] [facility] phone number: [phone] Type of instruction given: Verbal by telephone contact. Normal [facility] AMYLASEon 10-20-2022 Amylase [Catalytic activity/Vol] 33 U/L Normal 25-115 [facility] Comment on above: Performed By: #### L ACT #### [facility] [address] [place] [address] Dr. Mirian Velasco CBC AUTO DIFFon 10-20-2022 BASO # 0.0 103/ul Normal 0.0-0.1 [facility] Comment on above: Performed By: #### P T #### [facility] [address] [place] [address] Dr. Mirian Velasco Basophils/100 WBC (Bld) 0.2 % Normal 0.2-2.0 [facility] Comment on above: Performed By: #### P T #### [facility] [address] [place] [address] Dr. Mirian Velasco EO # 0.1 103/ul Normal 0.0-0.7 [facility] Comment on above: Performed By: #### P T #### [facility] [address] [place] [address] Dr. Mirian Velasco Eosinophils/100 WBC (Bld) 0.6 % Critically low 0.9-7.0 [facility] Comment on above: Performed By: #### P T #### [facility] [address] [place] [address] Dr. Mirian Velasco Erythrocyte distribution width (RBC) [Ratio] 13.6 % Normal 11.0-15.0 [facility] Comment on above: Performed By: #### P T #### [facility] [address] [place] [address] Dr. Mirian Velasco Hematocrit (Bld) [Volume fraction] 41.0 % Normal 36.0-48.0 [facility] Comment on above: Performed By: #### P T #### [facility] [address] [place] [address] Dr. Mirian Velasco Hemoglobin (Bld) [Mass/Vol] 13.5 g/dL Normal 12.0-16.0 [facility] Comment on above: Performed By: #### P T #### [facility] [address] [place] [address] Dr. Mirian Velasco IG # 0.06 10e3/ul Critically high 0.00-0.03 [facility] Comment on above: Performed By: #### P T #### [facility] [address] [place] [address] Dr. Mirian Velasco IG % 0.4 % Normal 0.0-0.5 [facility] Comment on above: Performed By: #### P T #### [facility] [address] [place] [address] Dr. Mirian Velasco LYMPH # 2.5 103/ul Normal 1.2-3.8 [facility] Comment on above: Performed By: #### P T #### [facility] [address] [place] [address] Dr. Mirian Velasco Lymphocytes/100 WBC (Bld) 17.5 % Critically low 20.5-60.0 [facility] Comment on above: Performed By: #### P T #### [facility] [address] [place] [address] Dr. Mirian Velasco MANUAL DIFF REQ NO Normal [facility] Comment on above: Performed By: #### P T #### [facility] [address] [place] [address] Dr. Mirian Velasco MCH (RBC) [Entitic mass] 28.1 pg Normal 26.7-34.0 [facility] Comment on above: Performed By: #### P T #### [facility] [address] [place] [address] Dr. Mirian Velasco MCHC (RBC) [Mass/Vol] 32.9 g/dL Normal 29.9-35.2 [facility] Comment on above: Performed By: #### P T #### [facility] [address] [place] [address] Dr. Mirian Velasco MCV (RBC) [Entitic vol] 85.2 fL Normal 81.0-99.0 [facility] Comment on above: Performed By: #### P T #### [facility] [address] [place] [address] Dr. Mirian Velasco MONO # 0.7 103/ul Normal 0.3-0.8 [facility] Comment on above: Performed By: #### P T #### [facility] [address] [place] [address] Dr. Mirian Velasco Monocytes/100 WBC (Bld) 4.5 % Normal 1.7-12.0 [facility] Comment on above: Performed By: #### P T #### [facility] [address] [place] [address] Dr. Mirian Velasco NEUT # 11.0 103/ul Critically high 1.4-6.5 [facility] Comment on above: Performed By: #### P T #### [facility] [address] [place] [address] Dr. Mirian Velasco Neutrophils/100 WBC (Bld) 76.8 % Critically high 43.0-75.0 [facility] Comment on above: Performed By: #### P T #### [facility] [address] [place] [address] Dr. Mirian Velasco Platelet mean volume (Bld) [Entitic vol] 8.7 fL Critically low 9.5-13.5 [facility] Comment on above: Performed By: #### P T #### [facility] [address] [place] [address] Dr. Mirian Velasco PLT 390 103/ul Normal 150-450 [facility] Comment on above: Performed By: #### P T #### [facility] [address] [place] [address] Dr. Mirian Velasco RBC 4.81 106/ul Normal 4.20-5.40 [facility] [facility] Comment on above: Performed By: #### P T #### [facility] [address] [place] [address] Dr. Mirian Velasco WBC 14.3 103/ul Critically high 4.0-11.0 [facility] Comment on above: Performed By: #### P T #### [facility] [address] [place] [address] ABD/PELV W CONon [...] SALMA AMEZQUITA Date: 2022-10-20 12:35 Normal [facility] CULTURE BLOODon 10-20-2022 Microscopic examination of blood, culture Culture Observations: NO GROWTH AT 5 DAYS. Normal [facility] Comment on above: Performed By: #### B [id number] ####[facility] [address] [address]. Mirian Velasco Microscopic examination of blood, culture Culture Observations: NO GROWTH AT 5 DAYS. Normal [facility] Comment on above: Performed By: #### B [id number] #### [facility] [address] [place] [address] Dr. 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 NO POTENTIAL PATHOGENS SEEN. Normal [facility] Comment on above: Performed By: #### U RCX #### [facility] [address] [place] [address] Dr. Mirian Velasco ER URINE PROFILEon 2 Bilirubin Ql (U) Negative Normal NEGATIVE [facility] Comment on above: Performed By: #### P T #### [facility] [address] [place] [address] Dr. Mirian Velasco Clarity (U) CLEAR Normal CLEAR [facility] Comment on above: Performed By: #### P T #### [facility] [address] [place] [address] Dr. Mirian Velasco Color (U) LT. YELLOW Normal YELLOW [facility] Comment on above: Performed By: #### P T #### [facility] [address] [place] [address] Dr. Mirian Velasco ERUAHD A micrscopic examination will be performed if indicated. Normal [facility] Comment on above: Performed By: #### P T #### [facility] [address] [address] [address] Mirian Velasco Glucose Ql (U) Negative Normal NEGATIVE [facility] Comment on above: Performed By: #### P T #### [facility] [address] [address] [address] Mirian Velasco Hemoglobin Ql (U) Negative Normal NEGATIVE [facility] Comment on above: Performed By: #### P T #### [facility] [address] [address] [address] Mirian Velasco Ketones Ql (U) Negative Normal NEGATIVE [facility] Comment on above: Performed By: #### P T #### [facility] [address] [place] [address] Dr. Mirian Velasco LEUKOCYTES SMALL Abnormal NEGATIVE [facility] Comment on above: Performed By: #### P T #### [facility] [address] [address] [address] Mirian Velasco Nitrite Ql (U) Negative Normal NEGATIVE [facility] Comment on above: Performed By: #### P T #### [facility] [address] [place] [address] Dr. Mirian Velasco pH (U) 7.0 [pH] Normal 5-9 [facility] Comment on above: Performed By: #### P T #### [facility] [address] [place] [address] Dr. Mirian Velasco SPEC GRAVITY 1.015 Normal 1.005-<=1.025 [facility] Comment on above: Performed By: #### P T #### [facility] [address] [place] [address] Dr. Mirian Velasco UA PROTEIN Negative Normal NEGATIVE/ TRACE [facility] Comment on above: Performed By: #### P T #### [facility] [address] [place] [address] Dr. Mirian Velasco UR MICRO IND INDICATED Normal [facility] Comment on above: Performed By: #### P T #### [facility] [address] [place] [address] Dr. Mirian Velasco Urobilinogen Qn (U) 0.2 {Lyubov'U}/dL Normal 0.2 - 1. 0 [facility] Comment on above: Performed By: #### P T #### [facility] [address] [place] [address] Dr. Mirian Velasco LACTATE/LACTIC ACIDon 2021 Lactate [Moles/Vol] 1.3 mmol/L Normal 0.4-1.9 [facility] Comment on above: Performed By: #### L ACT #### [facility] [address] [place] [address] Dr. Mirian Velasco LIPASEon 10-20-2022 Lipase [Catalytic activity/Vol] 49.0 U/L Critically low 73.0-393.0 [facility] Comment on above: Performed By: #### P T #### [facility] [address] [place] [address] Dr. Mirian Velasco PROF 14(COMP METB)on 022 Albumin [Mass/Vol] 3.2 g/dL Critically low 3.4-5.0 [facility] Comment on above: Performed By: #### P T #### [facility] [address] [place] [address] Dr. Mirian Velasco Albumin/Globulin [Mass ratio] 0.9 {ratio} Normal [facility] Comment on above: Performed By: #### P T #### [facility] [address] [place] [address] Dr. Mirian Velasco ALP [Catalytic activity/Vol] 129 U/L Critically high 46-116 [facility] Comment on above: Performed By: #### P T #### [facility] [address] [place] [address] Dr. Mirian Velasco ALT [Catalytic activity/Vol] 25 U/L Normal 14-59 [facility] Comment on above: Performed By: #### P T #### [facility] [address] [place] [address] Dr. Mirian Velasco Anion gap [Moles/Vol] 10.7 mmol/L Normal [facility] Comment on above: Performed By: #### P T #### [facility] [address] [address] [address] Mirian Velasco AST [Catalytic activity/Vol] 20 U/L Normal 15-37 [facility] Comment on above: Performed By: #### P T #### [facility] [address] [address] [address] Mirian Velasco Bilirubin [Mass/Vol] 0.5 mg/dL Normal 0.2-1.0 [facility] Comment on above: Performed By: #### P T #### [facility] [address] [address] [address] Mirina Velasco Calcium [Mass/Vol] 9.2 mg/dL Normal 8.5-10.1 [facility] Comment on above: Performed By: #### P T #### [facility] [address] [address] [address] Mirian Velasco Chloride [Moles/Vol] 102 mmol/L Normal 98-107 [facility] Comment on above: Performed By: #### P T #### [facility] [address] [address] [address] Mirian Velasco CO2 [Moles/Vol] 30.0 mmol/L Normal 21.0-32.0 [facility] Comment on above: Performed By: #### P T #### [facility] [address] [address] [address] Mirian Velasco Creatinine [Mass/Vol] 0.68 mg/dL Normal 0.55-1.02 [facility] Comment on above: Performed By: #### P T #### [facility] [address] [address] [address] Mirian Velasco EGFR-AF AUSTRIAN >60 Normal >=60 [facility] Comment on above: Performed By: #### P T #### [facility] [address] [address] [address] Mirian Velasco EGFR-NON AF AUSTRIAN >60 Normal >=60 [facility] Comment on above: Performed By: #### P T #### [facility] [address] [address] [address] Mirian Velasco Globulin (S) [Mass/Vol] 3.7 g/dL Normal [facility] Comment on above: Performed By: #### P T #### [facility] [address] [place] [address] Dr. Mirian Velasco Glucose [Mass/Vol] 109 mg/dL Critically high 74-106 [facility] Comment on above: Performed By: #### P T #### [facility] [address] [place] [address] Dr. Mirian Velasco Potassium [Moles/Vol] 3.7 mmol/L Normal 3.5-5.1 [facility] Comment on above: Performed By: #### P T #### [facility] [address] [place] [address] Dr. Mirian Velasco Protein [Mass/Vol] 6.9 g/dL Normal 6.4-8.2 [facility] Comment on above: Performed By: #### P T #### [facility] [address] [place] [address] Dr. Mirian Velasco Sodium [Moles/Vol] 139 mmol/L Normal 136-145 [facility] Comment on above: Performed By: #### P T #### [facility] [address] [place] [address] Dr. Mirian Velasco Urea nitrogen [Mass/Vol] 13.0 mg/dL Normal 7.0-18.0 [facility] Comment on above: Performed By: #### P T #### [facility] [address] [place] [address] Dr. Mirian Velasco Urea nitrogen/Creatinine [Mass ratio] 19.1 mg/mg Normal [facility] Comment on above: Performed By: #### P T #### [facility] [address] [place] [address] Dr. Mirian Velasco URINE MICROSCOPIC ONLYon BACTERIA TRACE Abnormal NONE SEEN [facility] Comment on above: Performed By: #### P T #### [facility] [address] [place] [address] Dr. Mirian Velasco Bacteria identified Cx Nom (U) INDICATED Normal [facility] Comment on above: Performed By: #### P T #### [facility] [address] [place] [address] Dr. Mirian Velasco CAST NONE SEEN Normal NONE SEEN [facility] Comment on above: Performed By: #### P T #### [facility] [address] [place] [address] Dr. Mirian Velasco Crystals LM Nom (Urine sed) NONE SEEN Normal NONE SEEN [facility] Comment on above: Performed By: #### P T #### [facility] [address] [place] [address] Dr. Mirian Velasco Epithelial cells LM Ql (Urine sed) MODERATE Abnormal NONE SEEN /RARE [facility] Comment on above: Performed By: #### P T #### [facility] [address] [place] [address] Dr. Mirian Velasco MUCOUS NONE SEEN Normal NONE SEEN [facility] Comment on above: Performed By: #### P T #### [facility] [address] [place] [address] Dr. Mirian Velasco RBC NONE SEEN Abnormal 0-2 [facility] Comment on above: Performed By: #### P T #### [facility] [address] [place] [address] Dr. Mirian Velasco WBC 2-5 Abnormal NONE SEEN [facility] Comment on above: Performed By: #### P T #### [facility] [address] [place] [address] Dr. Mirian Velasco YEAST PRESENT Abnormal NONE SEEN [facility] Comment on above: Result Comment: RARE BUDDING YEAST Performed By: #### P T #### [facility] [address] [place] [address] Dr. Mirian Velasco POINT OF CARE GLUCOSEon 10-06 Glucose [Mass/Vol] 131 mg/dL Critically high 74-[address] [facility] Comment on above: Performed By: #### P OCGLUC ####[facility] [address] [address]. Mirian Velasco Glucose [Mass/Vol] 113 mg/dL Critically high 74-106 T [facility] Comment on above: Performed By: #### P OCGLUC ####[facility] [address] [place], [place] [address]XnDr. Mirian Velasco XR FOOT RT 2Von 10-17-2022 [...] NICKI DACOSTA Date: 2022-10-17 18:04 Normal [facility] Covid-19 PCR ([facility])on SARS-CoV-2 (COVID-19) RNA JOSÉ MIGUEL+probe Ql (Unsp spec) Not detected Normal NOT DETECTED [facility] Comment on above: Result Comment: This test is not yet approved or cleared by the [place] FDA. When there are no FDA-approved or cleared tests available, and other criteria are met, FDA can make tests available under an emergency access mechanism called an Emergency Use Authorization (EUA). The EUA for this test is supported by the Manager Decision Support of Health and Human Service's (HHS's) declaration [...] SARS-CoV-2. Performed By: #### C VDTBH #### [facility] [address], [place] [address] Dr. Mirian Velasco Diagnostic Mammogram, Unilat eral [...] VERY IMPORTANT TO YOUR HEALTH. THE CURRENT [place] [employer] OF [employer] AND [employer]WORK GUIDELINES RECOMMENDS ANNUAL MAMMOGRAPHY BEGINNING AT AGE 40 THIS FACILITY USES A REMINDER SYSTEM TO ENSURE ALL PATIENTS RECEIVE REMINDER NOTIFICATIONS AT THE APPROPRIATE TIME BASED ON THE RECOMMENDATIONS OF THIS EXAM. Board Certified Radiologist. Accredited by the ACR and FDA. Report reported and signed by Dawna Lizarraga on 09/28/[address] [facility] CBC AUTO DIFFon 09-26-2022 BASO # 0.1 103/ul Normal 0.0-0.1 [facility] Comment on above: Performed By: #### L ACT #### [facility] [address] [address] [address] Mirian Velasco Basophils/100 WBC (Bld) 0.8 % Normal 0.2-2.0 [facility] Comment on above: Performed By: #### L ACT #### [facility] [address] [address] [address] Mirian Velasco EO # 0.1 103/ul Normal 0.0-0.7 [facility] Comment on above: Performed By: #### L ACT #### [facility] [address] [address] [address] Mirian Velasco Eosinophils/100 WBC (Bld) 1.5 % Normal 0.9-7.0 [facility] Comment on above: Performed By: #### L ACT #### [facility] [address] [address] [address] Mirian Velasco Erythrocyte distribution width (RBC) [Ratio] 13.4 % Normal 11.0-15.0 [facility] Comment on above: Performed By: #### L ACT #### [facility] [address] [place] [address] Dr. Mirian Velasco Hematocrit (Bld) [Volume fraction] 41.3 % Normal 36.0-48.0 [facility] Comment on above: Performed By: #### L ACT #### [facility] [address] [place] [address] Dr. Mirian Velasco Hemoglobin (Bld) [Mass/Vol] 13.4 g/dL Normal 12.0-16.0 [facility] Comment on above: Performed By: #### L ACT #### [facility] [address] [place] [address] Dr. Mirian Velasco IG # 0.04 10e3/ul Critically high 0.00-0.03 [facility] Comment on above: Performed By: #### L ACT #### [facility] [address] [place] [address] Dr. Mirian Velasco IG % 0.5 % Normal 0.0-0.5 [facility] Comment on above: Performed By: #### L ACT #### [facility] [address] [place] [address] Dr. Mirian Velasco LYMPH # 2.5 103/ul Normal 1.2-3.8 [facility] Comment on above: Performed By: #### L ACT #### [facility] [address] [place] [address] Dr. Mirian Velasco Lymphocytes/100 WBC (Bld) 27.7 % Normal 20.5-60.0 [facility] Comment on above: Performed By: #### L ACT #### [facility] [address] [place] [address] Dr. Mirian Velasco MANUAL DIFF REQ NO Normal [facility] Comment on above: Performed By: #### L ACT #### [facility] [address] [place] [address] Dr. Mirian Velasco MCH (RBC) [Entitic mass] 27.6 pg Normal 26.7-34.0 [facility] Comment on above: Performed By: #### L ACT #### [facility] [address] [place] [address] Dr. Mirian Velasco MCHC (RBC) [Mass/Vol] 32.4 g/dL Normal 29.9-35.2 [facility] Comment on above: Performed By: #### L ACT #### [facility] [address] [address] [address] Mirian Velasco MCV (RBC) [Entitic vol] 85.0 fL Normal 81.0-99.0 [facility] Comment on above: Performed By: #### L ACT #### [facility] [address] [address] [address] Mirian Velasco MONO # 0.6 103/ul Normal 0.3-0.8 [facility] Comment on above: Performed By: #### L ACT #### [facility] [address] [address] [address] Mirian Velasco Monocytes/100 WBC (Bld) 6.9 % Normal 1.7-12.0 [facility] Comment on above: Performed By: #### L ACT #### [facility] [address] [address] [address] Mirian Velasco NEUT # 5.6 103/ul Normal 1.4-6.5 [facility] Comment on above: Performed By: #### L ACT #### [facility] [address] [address] [address] Mirian Velasco Neutrophils/100 WBC (Bld) 62.6 % Normal 43.0-75.0 [facility] Comment on above: Performed By: #### L ACT #### [facility] [address] [address] [address] Mirian Velasco Platelet mean volume (Bld) [Entitic vol] 8.6 fL Critically low 9.5-13.5 [facility] Comment on above: Performed By: #### L ACT #### [facility] [address] [place] [address] Dr. Mirian Velasco PLT 372 103/ul Normal 150-450 [facility] Comment on above: Performed By: #### L ACT #### [facility] [address] [address] [address] Mirian Velasco RBC 4.86 106/ul Normal 4.20-5.40 [facility] Comment on above: Performed By: #### L ACT #### [facility] [address] [place] [address] Dr. Mirian Velasco WBC 8.9 103/ul Normal 4.0-11.0 [facility] Comment on above: Performed By: #### L ACT #### [facility] [address] [place] [address] Dr. Mirian Velasco PROF CHEM 8 (BAS METB)on Anion gap [Moles/Vol] 8.0 mmol/L Normal [facility] Comment on above: Performed By: #### P T #### [facility] [address] [place] [address] Dr. Mirian Velasco Calcium [Mass/Vol] 9.0 mg/dL Normal 8.5-10.1 [facility] Comment on above: Performed By: #### P T #### [facility] [address] [place] [address] Dr. Mirian Velasco Chloride [Moles/Vol] 106 mmol/L Normal 98-107 [facility] Comment on above: Performed By: #### P T #### [facility] [address] [place] [address] Dr. Mirian Velasco CO2 [Moles/Vol] 30.3 mmol/L Normal 21.0-32.0 [facility] Comment on above: Performed By: #### P T #### [facility] [address] [place] [address] Dr. Mirian Velasco Creatinine [Mass/Vol] 0.71 mg/dL Normal 0.55-1.02 [facility] Comment on above: Performed By: #### P T #### [facility] [address] [place] [address] Dr. Mirian Velasco EGFR-AF AUSTRIAN >60 Normal >=60 [facility] Comment on above: Performed By: #### P T #### [facility] [address] [place] [address] Dr. Mirian Velasco EGFR-NON AF AUSTRIAN >60 Normal >=60 [facility] Comment on above: Performed By: #### P T #### [facility] [address] [address] [address] Mirian Velasco Glucose [Mass/Vol] 81 mg/dL Normal 74-106 [facility] Comment on above: Performed By: #### P T #### [facility] [address] [address] [address] Mirian Velasco Potassium [Moles/Vol] 4.3 mmol/L Normal 3.5-5.1 [facility] Comment on above: Performed By: #### P T #### [facility] [address] [address] [address] Mirian Velasco Sodium [Moles/Vol] 140 mmol/L Normal 136-145 [facility] Comment on above: Performed By: #### P T #### [facility] [address] [address] [address] Mirian Velasco Urea nitrogen [Mass/Vol] 16.0 mg/dL Normal 7.0-18.0 [facility] Comment on above: Performed By: #### P T #### [facility] [address] [address] [address] Mirian Velasco Urea nitrogen/Creatinine [Mass ratio] 22.5 mg/mg Normal [facility] Comment on above: Performed By: #### P T #### [facility] [address] [address] [address] Mirian Velasco C reactive protein [Mass/vol ume] in Serum or PlasmaOrdered By: Beto Snyder on 09-22-2022 CRP [Mass/Vol] 0.6 mg/dL 0.0-1.0 [facility] C-Reactive Proteinon 022 C-Reactive Protein 0.6 mg/dL Normal 0.0-1.0 mg/dL [facility] [employer] Other Erythrocyte Sedimentation Ra lian 09-22-2022 ESR (Bld) [Velocity] 4 mm/h Normal 0-29 [facility] [employer] Other Erythrocyte sedimentation ra te by Photometric methodOrdered By: Beto Snyder on 09-22-2022 ESR Photometric method (Bld) [Velocity] 4 mm/hr 0-29 [facility] Serum nuclear antibody titer Ordered By: Beto Snyder on 09-22-2022 Nuclear Ab (S) [Titer] Negative . [facility] Comment on above: Negative <1:80 Borde rline 1:80 Positive >1:80ICAP nomenclature: AC-0For more information about Hep-2 cell patterns useENCOMPASS HEALTH REHABILITATION HOSPITAL OF SCOTTSDALEpatterns.org, the official website for theInternational Consensus on Antinuclear Antibody (CHUYITA)Patterns (ICAP).Performed at: [facility] [address] [id number] Director: Erick Neville PhD, Phone: [phone] Serum or plasma rheumatoid f actor measurement (units/volume)Ordered By: Beto Snyder on 09-22-2022 Rheumatoid factor Qn [IU]/mL <14.0 [facility] Comment on above: Performed at: [facility] [address] [id number] Director: Erick Neville PhD, Phone: [phone] Serum or plasma thyroxine (T 4) measurement (mass/volume)Ordered By: Beto Snyder on 09-22-2022 T4 [Mass/Vol] 9.82 ug/dL 5.39-11.82 [facility] Serum or plasma uric acid me asurement (mass/volume)Ordered By: Beto Snyder on 09-22-2022 Urate [Mass/Vol] 4.2 mg/dL 2.6-7.2 [facility] TSH DL <= 0.005 mIU/L QnOrde red By: Beto Snyder on 09-22-2022 TSH Qn 1.98 m[IU]/L 0.45-5.33 [facility] Thyroid Stimulating Hormoneo n 09-22-2022 TSH Qn [id number] m[IU]/L Normal 0.45-5 .33 u[iU]/mL [employer] Other Thyroxine (T4) Totalon 09-22 Thyroxine (T4) Total 9.82 ug/dL Normal 5.39-11 .82 ug/dL [employer] Other Uric Acidon 09-22-2022 Urate [Mass/Vol] 4.8790501 mg/dL Normal 2.6-7.2 mg/dL [employer] Other XR knee BI 2Von 09-22-2022 XR knee BI 2V [facility] [employer] Other XR knee BI 2V [facility] [employer] Other XR knee BI 2V [address] [place] [address] [employer] Other XR knee BI 2V [address] [employer] Other XR knee BI 2V XRay Report [facility] [employer] Other XR knee BI 2V Signed [employer] Other XR knee BI 2V Patient: Darrian Leal jonathan Kenny MR#: [id number] [employer] Other XR knee BI 2V 863 [employer] Other XR knee BI 2V : 1970 Acct:[id number] [employer] Other XR knee BI 2V Age/Sex: 52 / F ADM Date: 09/22/22 [employer] Other XR knee BI 2V Loc: SOXD Room: Type : REG CLI [employer] Other XR knee BI 2V Attending Dr: Beto Snyder MD [employer] Other XR knee BI 2V Copies to: Beto Snyder MD [employer] Other XR knee BI 2V Ordering Provider: Beto Snyder MD [employer] Other XR knee BI 2V Date of Service: 09/22/22 [employer] Other XR knee BI 2V XR/XR knee BI 2V: Knee pain [employer] Other XR knee BI 2V XR knee BI 2V 09/22/2022 9:23 AM [employer] Other XR knee BI 2V SIGNS AND SYMPTOMS: Bilateral knee pain right greater than left [employer] Other XR knee BI 2V PROTOCOL: Frontal an d lateral radiographs of the bilateral knees [employer] Other XR knee BI 2V COMPARISON: None [employer] Other XR knee BI 2V FINDINGS: [employer] Other XR knee BI 2V There is evidence of prior ACL repair in the left knee with mild narrowing of the weightbearing [employer] Other XR knee BI 2V joint spaces on the left. The joint spaces are otherwise preserved. There is no fracture or [employer] Other XR knee BI 2V dislocation. No join t effusion or soft tissue swelling. [employer] Other XR knee BI 2V XR/XR knee BI 2V [employer] Other XR knee BI 2V IMPRESSION: [employer] Other XR knee BI 2V Status post ACL repa ir on the left. [employer] Other XR knee BI 2V Mild degenerative changes are noted in the weightbearing joint spaces of the left. [employer] Other XR knee BI 2V No acute bony injury. [employer] Other XR knee BI 2V Impression dictated by: Rajiv Garcia M.D.09/22/2022 2:17 PM [employer] Other XR knee BI 2V Dictation Location: [place] [address] [employer] Other XR knee BI 2V Transcribed By: MARIO 09/22/22 1417 [employer] Other XR knee BI 2V Dictated By: Rajiv Garcia II, MD 09/22/22 1415 [employer] Other XR knee BI 2V Signed By: [employer] Other XR knee BI 2V 09/22/22 1417 [employer] Other XR shoulder BI min 2Von 09-06 XR shoulder BI min 2V XR/XR shoulder BI min 2V: Shoulder pain [employer] Other XR shoulder BI min 2V XR shoulder BI min 2V 09/22/2022 9:23 AM [employer] Other XR shoulder BI min 2V SIGNS AND SYMPTOMS : Bilateral shoulder pain with limited range of motion [employer] Other XR shoulder BI min 2V PROTOCOL: Frontal, Grashey, scapular Y, and axillary views of the bilateral shoulders [employer] Other XR shoulder BI min 2V COMPARISON: 02/26/2018 [employer] Other XR shoulder BI min 2V There has been bon y resorption of the lateral margin of the clavicle on the right suggesting [employer] Other XR shoulder BI min 2V osteomyelitis is w hich may be degenerative or traumatic. Mild hypertrophy of the AC joint is noted. [employer] Other XR shoulder BI min 2V The glenohumeral j oint is preserved on the right. There is subcortical sclerosis greater tuberosity [employer] Other XR shoulder BI min 2V of the right suggesting underlying rotator cuff abnormalities. This is new when compared to the [employer] Other XR shoulder BI min 2V prior exam. The visualized right hemithorax is grossly intact. [employer] Other XR shoulder BI min 2V There is mild hypertrophy of the left acromioclavicular joint. There is mild subcortical sclerosis [employer] Other XR shoulder BI min 2V of the greater tuberosity in the left suggesting underlying rotator cuff abnormalities. The [employer] Other XR shoulder BI min 2V glenohumeral joint is preserved. There is no fracture or dislocation. Visualized left hemithorax is [employer] Other XR shoulder BI min 2V grossly intact. [employer] Other XR shoulder BI min 2V There is partial visualization of intervertebral disc arthroplasty is noted within the lower [employer] Other XR shoulder BI min 2V cervical spine. Rudimentary ribs are noted at C7, right greater than left [employer] Other XR shoulder BI min 2V XR/XR shoulder BI min 2V [employer] Other XR shoulder BI min 2V Degenerative velasco es are noted in the bilateral shoulders with findings suspicious for bilateral [employer] Other XR shoulder BI min 2V rotator cuff abnormalities as above. 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 [employer] Other XR shoulder BI min 2V Rudimentary ribs a re noted at C7, right greater than left [employer] Other XR shoulder BI min 2V Impression dictate d by: Rajiv Garcia M.D.09/22/2022 2:20 PM [employer] Other XR shoulder BI min 2V Transcribed By: KT Thorpe 09/22/22 1420 [employer] Other XR shoulder BI min 2V Dictated By: Rajiv Garcia II, MD 09/22/22 1417 [employer] Other XR shoulder BI min 2V 09/22/22 1420 [employer] Other SCREENING MAMMOGRAM W/RUSSEL, BILATERAL*on 09-14-2022 SCREENING [...] IS VERY IMPORTANT TO YOUR HEALTH. CURRENT [employer] GUIDELINES RECOMMENDS ANNUAL MAMMOGRAPHY BEGINNING AT AGE 42. THIS FACILITY USUALLY USES A REMINDER SYSTEM TO ENSURE ALL POSITIONS RECEIVED REMINDER NOTIFICATIONS AT THE TIME BASED ON THE RECOMMENDATIONS OF THIS EXAM. Report reported and signed by Zaida Diaz on 09/16/2022 1334 Normal [facility] [employer] Tobacco Screening.on 022 Adult depression screening assessment No [facility] [address] DO Work Phone: Tobacco use status [facility] b) No [facility] 250 DO Work Phone: COVID Quick Testingon 2021 Result Negative [employer] Other AMYLASEon 04-17-2022 Amylase [Catalytic activity/Vol] 38 U/L Normal 25-115 [facility] Comment on above: Performed By: #### P T #### [facility] [address] [address] [address] Mirian Velasco CBC AUTO DIFFon 04-17-2022 BASO # 0.1 103/ul Normal 0.0-0.1 [facility] Comment on above: Performed By: #### L ACT #### [facility] [address] [address] [address] Mirian Velasco Basophils/100 WBC (Bld) 1.0 % Normal 0.2-2.0 [facility] Comment on above: Performed By: #### L ACT #### [facility] [address] [place] [address] Dr. Mirian Velasco EO # 0.2 103/ul Normal 0.0-0.7 [facility] Comment on above: Performed By: #### L ACT #### [facility] [address] [place] [address] Dr. Mirian Velasco Eosinophils/100 WBC (Bld) 3.3 % Normal 0.9-7.0 [facility] Comment on above: Performed By: #### L ACT #### [facility] [address] [place] [address] Dr. Mirian Velasco Erythrocyte distribution width (RBC) [Ratio] 12.0 % Normal 11.0-15.0 [facility] Comment on above: Performed By: #### L ACT #### [facility] [address] [place] [address] Dr. Mirian Velasco Hematocrit (Bld) [Volume fraction] 37.3 % Normal 36.0-48.0 [facility] Comment on above: Performed By: #### L ACT #### [facility] [address] [place] [address] Dr. Mirian Velasco Hemoglobin (Bld) [Mass/Vol] 12.1 g/dL Normal 12.0-16.0 [facility] Comment on above: Performed By: #### L ACT #### [facility] [address] [place] [address] Dr. Mirian Velasco IG # 0.03 10e3/ul Normal 0.00-0.03 [facility] Comment on above: Performed By: #### L ACT #### [facility] [address] [place] [address] Dr. Mirian Velasco IG % 0.4 % Normal 0.0-0.5 [facility] Comment on above: Performed By: #### L ACT #### [facility] [address] [place] [address] Dr. Mirian Velasco LYMPH # 1.8 103/ul Normal 1.2-3.8 [facility] Comment on above: Performed By: #### L ACT #### [facility] [address] [place] [address] Dr. Mirian Velasco Lymphocytes/100 WBC (Bld) 25.2 % Normal 20.5-60.0 [facility] Comment on above: Performed By: #### L ACT #### [facility] [address] [place] [address] Dr. Mirian Velasco MANUAL DIFF REQ NO Normal [facility] Comment on above: Performed By: #### L ACT #### [facility] [address] [place] [address] Dr. Mirian Velasco MCH (RBC) [Entitic mass] 29.0 pg Normal 26.7-34.0 [facility] Comment on above: Performed By: #### L ACT #### [facility] [address] [place] [address] Dr. Mirian Velasco MCHC (RBC) [Mass/Vol] 32.4 g/dL Normal 29.9-35.2 [facility] Comment on above: Performed By: #### L ACT #### [facility] [address] [place] [address] Dr. Mirian Velasco MCV (RBC) [Entitic vol] 89.4 fL Normal 81.0-99.0 [facility] Comment on above: Performed By: #### L ACT #### [facility] [address] [place] [address] Dr. Mirian Velasco MONO # 0.4 103/ul Normal 0.3-0.8 [facility] Comment on above: Performed By: #### L ACT #### [facility] [address] [place] [address] Dr. Mirian Velasco Monocytes/100 WBC (Bld) 5.8 % Normal 1.7-12.0 [facility] Comment on above: Performed By: #### L ACT #### [facility] [address] [place] [address] Dr. Mirian Velasco NEUT # 4.6 103/ul Normal 1.4-6.5 [facility] Comment on above: Performed By: #### L ACT #### [facility] [address], [place] [address] Dr. Mirian Velasco Neutrophils/100 WBC (Bld) 64.3 % Normal 43.0-75.0 [facility] Comment on above: Performed By: #### L ACT #### [facility] [address], [place] [address] Dr. Mirian Velasco Platelet mean volume (Bld) [Entitic vol] 8.6 fL Critically low 9.5-13.5 [facility] Comment on above: Performed By: #### L ACT #### [facility] [id number] Mirian Velasco PLT 597 103/ul Critically high 150-450 [facility] Comment on above: Performed By: #### L ACT #### [facility] [id number] Mirian Velasco RBC 4.17 106/ul Critically low 4.20-5.40 [facility] Comment on above: Performed By: #### L ACT #### [facility] [address], [place] [address] Dr. Mirian Velasco WBC 7.2 103/ul Normal 4.0-11.0 [facility] Comment on above: Performed By: #### L ACT #### [facility] [address], [place] [address] ABD/PELVIS WO CONon [...] by: LORRI TRIPLETT Date: 2022-04-17 11:19 Normal [facility] ER URINE PROFILEon 2 Bilirubin Ql (U) Negative Normal NEGATIVE [facility] Comment on above: Performed By: #### P T #### [facility] [address] [place] [address] Dr. Mirian Velasco Clarity (U) CLEAR Normal CLEAR [facility] Comment on above: Performed By: #### P T #### [facility] [address] [address] [address] Mirian Velasco Color (U) YELLOW Normal YELLOW [facility] Comment on above: Performed By: #### P T #### [facility] [address] [address] [address] Mirian KING A micrscopic examination will be performed if indicated. Normal [facility] Comment on above: Performed By: #### P T #### [facility] [address] [place] [address] Dr. Mirian Velasco Glucose Ql (U) Negative Normal NEGATIVE [facility] Comment on above: Performed By: #### P T #### [facility] [address] [place] [address] Dr. Mirian Velasco Hemoglobin Ql (U) Negative Normal NEGATIVE [facility] Comment on above: Performed By: #### P T #### [facility] [address] [place] [address] Dr. Mirian Velasco Ketones Ql (U) Negative Normal NEGATIVE [facility] Comment on above: Performed By: #### P T #### [facility] [address] [place] [address] Dr. Mirian Velasco LEUKOCYTES Negative Normal NEGATIVE [facility] Comment on above: Performed By: #### P T #### [facility] [address] [place] [address] Dr. Mirian Velasco Nitrite Ql (U) Negative Normal NEGATIVE [facility] Comment on above: Performed By: #### P T #### [facility] [address] [place] [address] Dr. Mirian Velasco pH (U) 5.5 [pH] Normal 5-9 [facility] Comment on above: Performed By: #### P T #### [facility] [address] [place] [address] Dr. Mirian Vleasco SPEC GRAVITY >=1.030 Abnormal 1.005-<=1.025 [facility] Comment on above: Performed By: #### P T #### [facility] [address] [place] [address] Dr. Mirian Velasco UA PROTEIN Negative Normal NEGATIVE/ TRACE [facility] Comment on above: Performed By: #### P T #### [facility] [address] [place] [address] Dr. Mirian Velasco UR MICRO IND NOT INDICATED Normal [facility] Comment on above: Performed By: #### P T #### [facility] [address] [place] [address] Dr. Mirian Velasco Urobilinogen Qn (U) 0.2 {Lyubov'U}/dL Normal 0.2 - 1. 0 [facility] Comment on above: Performed By: #### P T #### [facility] [address] [place] [address] Dr. Mirian Velasco LIPASEon 04-17-2022 Lipase [Catalytic activity/Vol] 117.0 U/L Normal 73.0-393.0 [facility] Comment on above: Performed By: #### P T #### [facility] [address] [place] [address] Dr. Mirian Velasco PROF 14(COMP METB)on 022 Albumin [Mass/Vol] 3.5 g/dL Normal 3.4-5.0 [facility] Comment on above: Performed By: #### P T #### [facility] [address] [place] [address] Dr. Mirian Velasco Albumin/Globulin [Mass ratio] 0.9 {ratio} Normal [facility] Comment on above: Performed By: #### P T #### [facility] [address] [place] [address] Dr. Mirian Velasco ALP [Catalytic activity/Vol] 237 U/L Critically high 46-116 [facility] Comment on above: Performed By: #### P T #### [facility] [address] [place] [address] Dr. Mirian Velasco ALT [Catalytic activity/Vol] 53 U/L Normal 14-59 [facility] Comment on above: Performed By: #### P T #### [facility] [address] [place] [address] Dr. Mirian Velasco Anion gap [Moles/Vol] 11.0 mmol/L Normal [facility] Comment on above: Performed By: #### P T #### [facility] [address] [place] [address] Dr. Mirian Velasco AST [Catalytic activity/Vol] 45 U/L Critically high 15-37 [facility] Comment on above: Performed By: #### P T #### [facility] [address] [place] [address] Dr. Mirian Velasco Bilirubin [Mass/Vol] 0.2 mg/dL Normal 0.2-1.0 [facility] Comment on above: Performed By: #### P T #### [facility] [address] [address] [address] Mirian Velasco Calcium [Mass/Vol] 9.3 mg/dL Normal 8.5-10.1 [facility] Comment on above: Performed By: #### P T #### [facility] [address] [address] [address] Mirian Velasco Chloride [Moles/Vol] 105 mmol/L Normal 98-107 [facility] Comment on above: Performed By: #### P T #### [facility] [address] [place] [address] Dr. Mirian Velasco CO2 [Moles/Vol] 29.5 mmol/L Normal 21.0-32.0 [facility] Comment on above: Performed By: #### P T #### [facility] [address] [place] [address] Dr. Mirian Velasco Creatinine [Mass/Vol] 0.69 mg/dL Normal 0.55-1.02 [facility] Comment on above: Performed By: #### P T #### [facility] [address] [place] [address] Dr. Mirian Velasco EGFR-AF AUSTRIAN >110 Normal >=60 [facility] Comment on above: Performed By: #### P T #### [facility] [address] [place] [address] Dr. Mirian Velasco EGFR-NON AF AUSTRIAN >90 Normal >=60 [facility] Comment on above: Performed By: #### P T #### [facility] [address] [place] [address] Dr. Mirian Velasco Globulin (S) [Mass/Vol] 4.0 g/dL Normal [facility] Comment on above: Performed By: #### P T #### [facility] [address] [place] [address] Dr. Mirian Velasco Glucose [Mass/Vol] 107 mg/dL Critically high 74-106 [facility] Comment on above: Performed By: #### P T #### [facility] [address] [place] [address] Dr. Mirian Velasco Potassium [Moles/Vol] 4.5 mmol/L Normal 3.5-5.1 [facility] Comment on above: Performed By: #### P T #### [facility] [address] [address] [address] Mirian Velasco Protein [Mass/Vol] 7.5 g/dL Normal 6.4-8.2 [facility] Comment on above: Performed By: #### P T #### [facility] [address] [address] [address] Mirian Velasco Sodium [Moles/Vol] 141 mmol/L Normal 136-145 [facility] Comment on above: Performed By: #### P T #### [facility] [address] [address] [address] Mirian Velasco Urea nitrogen [Mass/Vol] 11.0 mg/dL Normal 7.0-18.0 [facility] Comment on above: Performed By: #### P T #### [facility] [address] [address] [address] Mirian Velasco Urea nitrogen/Creatinine [Mass ratio] 15.9 mg/mg Normal [facility] Comment on above: Performed By: #### P T #### [facility] [id number] Mirian Velasco XR CHEST 1 Von 04-17-2022 XR CHEST 1 V EXAM: Chest x-ray HISTORY: Pain. COMPARISON: 02/20/2022 TECHNIQUE: AP portable upright view of the chest. FINDINGS: Heart and Vascularity are unremarkable. Lungs are free of focal infiltrates. No effusions are noted. Impression: No acute heart or lung disease identified. Electronically authenticated by: NICKI BUTT Date: 2022-04-17 11:03 Normal [facility] Basic metabolic 2000 panelon 04-05-2022 Anion gap [Moles/Vol] 13 mmol/L Normal 9-18 [facility] Comment on above: Order Comment: Speci men Type: BLOOD SPECIMEN Ordering Facility: [facility] Address: [address] [place] [id number] Performed By: #### 5 8410-2 #### [facility] CLIA [id number] [address] [place] [address] [place] Calcium [Mass/Vol] 9.0 mg/dL Normal 8.5-10.2 [facility] Comment on above: Order Comment: Speci men Type: BLOOD SPECIMEN Ordering Facility: [facility] Address: [address] [place] [address] Performed By: #### 5 8410-2 #### [facility] CLIA [id number] [address] [place] [address] [place] Chloride [Moles/Vol] 104 mmol/L Normal 97-105 [facility] Comment on above: Order Comment: Speci men Type: BLOOD SPECIMEN Ordering Facility: [facility] Address: [address] [place] [address] Performed By: #### 5 8410-2 #### [facility] CLIA [id number] [address] [place] [address] [place] CO2 [Moles/Vol] 25 mmol/L Normal 22-30 [facility] Comment on above: Order Comment: Speci men Type: BLOOD SPECIMEN Ordering Facility: [facility] Address: [address] [place] [address] Performed By: #### 5 8410-2 #### [facility] CLIA [id number] [address] [place] [address] [place] Creatinine [Mass/Vol] 0.65 mg/dL Normal 0.58-0.96 [facility] Comment on above: Order Comment: Speci men Type: BLOOD SPECIMEN Ordering Facility: [facility] Address: [address] [place] [address] Performed By: #### 5 8410-2 #### [facility] CLIA [id number] [address] [place] [address] [place] ESTIMATED GLOMERULAR FILTRATION RATE 108 mL/min/1.73m??? Normal >=60 [facility] Comment on above: Order Comment: Speci men Type: BLOOD SPECIMEN Ordering Facility: [facility] Address: [address] [place] [address] Result Comment: Mary mated Glomerular Filtration Rate [...] #### 5 8410-2 #### [facility] CLIA [id number] [address] [place] [address] [place] Glucose [Mass/Vol] 109 mg/dL High 74-99 [facility] Comment on above: Order Comment: Leanne terry Type: BLOOD SPECIMEN Ordering Facility: [facility] Address: [address] [place] [address] Result Comment: The [employer] Diabetes Association (ADA) provides guidance for cutoff [...] Standards of Medical Care in Diabetes 2016, [employer]. Diabetes Care. 2016.39(Suppl 1). Performed By: #### 5 8410-2 #### [facility] CLIA [id number] [place] [address] [place] Potassium [Moles/Vol] 3.9 mmol/L Normal 3.7-5.1 [facility] Comment on above: Order Comment: Leanne terry Type: BLOOD SPECIMEN Ordering Facility: [facility] Address: [address] [id number] Performed By: #### 5 8410-2 #### [facility] CLIA [id number] [place] [address] [place] Sodium [Moles/Vol] 142 mmol/L Normal 136-144 [facility] Comment on above: Order Comment: Speci men Type: BLOOD SPECIMEN Ordering Facility: [facility] Address: [address] [place] [address] Performed By: #### 5 8410-2 #### [facility] CLIA [id number] [address] [place] [address] STATES OF [facility] Urea nitrogen [Mass/Vol] 7 mg/dL Normal 7-21 [facility] Comment on above: Order Comment: Speci men Type: BLOOD SPECIMEN Ordering Facility: [facility] Address: [address] [place] [address] Performed By: #### 5 8410-2 #### [facility] CLIA [id number] [address] [place] [address] [place] CBC W Auto Differential pane l (Bld)on 04-05-2022 Basophils (Bld) [#/Vol] 0.05 10*3/uL Normal <0.11 [facility] Comment on above: Order Comment: Speci men Type: BLOOD SPECIMENOrdering Facility: [facility] Address: [address] [place] [address] Performed By: #### B MP #### [address] [id number] Basophils/100 WBC (Bld) 0.7 % Normal [facility] Comment on above: Order Comment: Speci men Type: BLOOD SPECIMENOrdering Facility: [facility] Address: [address] [place] [address] Performed By: #### B MP #### [id number] Differential cell count method Nom (Bld) Auto Normal [facility] Comment on above: Order Comment: Speci men Type: BLOOD SPECIMENOrdering Facility: [facility] Address: [address] [place] [address] Performed By: #### B MP #### [address] [place] [phone] Eosinophils (Bld) [#/Vol] 0.55 10*3/uL High <0.46 [facility] Comment on above: Order Comment: Speci men Type: BLOOD SPECIMENOrdering Facility: [facility] Address: [address] [place] [address] Performed By: #### B MP #### [address] [place] [id number] Eosinophils/100 WBC (Bld) 8.2 % Normal [facility] Comment on above: Order Comment: Speci men Type: BLOOD SPECIMENOrdering Facility: [facility] Address: [address] [place] [address] Performed By: #### B MP #### [address] [id number] Erythrocyte distribution width (RBC) [Ratio] 12.8 % Normal 11.5-15.0 [facility] Comment on above: Order Comment: Speci men Type: BLOOD SPECIMENOrdering Facility: [facility] Address: [address] [place] [address] Performed By: #### B MP #### [address] [id number] Hematocrit (Bld) [Volume fraction] 31.1 % Low 36.0-46.0 [facility] Comment on above: Order Comment: Speci men Type: BLOOD SPECIMENOrdering Facility: [facility] Address: [address] [place] [address] Performed By: #### B MP #### [address] [id number] Hemoglobin (Bld) [Mass/Vol] 10.5 g/dL Low 11.5-15.5 [facility] Comment on above: Order Comment: Speci men Type: BLOOD SPECIMENOrdering Facility: [facility] Address: [address] [place] [address] Performed By: #### B MP #### [address] [id number] IMMATURE GRAN % 0.4 % Normal [facility] Comment on above: Order Comment: Speci men Type: BLOOD SPECIMENOrdering Facility: [facility] Address: [address] [place] [address] Performed By: #### B MP #### [address] [phone] IMMATURE GRAN ABS 0.03 k/uL Normal <0.10 [facility] Comment on above: Order Comment: Speci men Type: BLOOD SPECIMENOrdering Facility: [facility] Address: [address] [place] [address] Performed By: #### B MP #### [address] [id number] Lymphocytes (Bld) [#/Vol] 1.47 10*3/uL Normal 1.00-4.00 [facility] Comment on above: Order Comment: Speci men Type: BLOOD SPECIMENOrdering Facility: [facility] Address: [address] [place] [address] Performed By: #### B MP #### [address] [id number] Lymphocytes/100 WBC (Bld) 22.0 % Normal [facility] Comment on above: Order Comment: Speci men Type: BLOOD SPECIMENOrdering Facility: [facility] Address: [address] [place] [address] Performed By: #### B MP #### [address] [id number] MCH (RBC) [Entitic mass] 29.9 pg Normal 26.0-34.0 [facility] Comment on above: Order Comment: Speci men Type: BLOOD SPECIMENOrdering Facility: [facility] Address: [address] [place] [address] Performed By: #### B MP #### [phone] MCHC (RBC) [Mass/Vol] 33.8 g/dL Normal 30.5-36.0 [facility] Comment on above: Order Comment: Speci men Type: BLOOD SPECIMENOrdering Facility: [facility] Address: [address] [place] [address] Performed By: #### B MP #### [address] [phone] MCV (RBC) [Entitic vol] 88.6 fL Normal 80.0-100.0 [facility] Comment on above: Order Comment: Speci men Type: BLOOD SPECIMENOrdering Facility: [facility] Address: [address] [place] [address] Performed By: #### B MP #### [phone] Monocytes (Bld) [#/Vol] 0.50 10*3/uL Normal <0.87 [facility] Comment on above: Order Comment: Speci men Type: BLOOD SPECIMENOrdering Facility: [facility] Address: [address] [place] [address] Performed By: #### B MP #### [address] [id number] Monocytes/100 WBC (Bld) 7.5 % Normal [facility] Comment on above: Order Comment: Speci men Type: BLOOD SPECIMENOrdering Facility: [facility] Address: [address] [place] [address] Performed By: #### B MP #### [address] [id number] Neutrophils (Bld) [#/Vol] 4.08 10*3/uL Normal 1.45-7.50 [facility] Comment on above: Order Comment: Speci men Type: BLOOD SPECIMENOrdering Facility: [facility] Address: [address] [place] [address] Performed By: #### B MP #### [address] [id number] Neutrophils/100 WBC (Bld) 61.2 % Normal [facility] Comment on above: Order Comment: Speci men Type: BLOOD SPECIMENOrdering Facility: [facility] Address: [address] [place] [address] Performed By: #### B MP #### [address] [phone] Nucleated RBC (Bld) [#/Vol] 10*3/uL Normal <0.01 [facility] Comment on above: Order Comment: Speci men Type: BLOOD SPECIMENOrdering Facility: [facility] Address: [address] [place] [address] Performed By: #### B MP #### [address] [phone] Nucleated RBC/100 WBC (Bld) [Ratio] 0.0 /100 WBC Normal [facility] Comment on above: Order Comment: Speci men Type: BLOOD SPECIMENOrdering Facility: [facility] Address: [address] [place] [address] Performed By: #### B MP #### [address] [phone] Platelet mean volume (Bld) [Entitic vol] 8.9 fL Low 9.0-12.7 [facility] Comment on above: Order Comment: Speci men Type: BLOOD SPECIMENOrdering Facility: [facility] Address: [address] [place] [address] Performed By: #### B MP #### [address] [phone] Platelets (Bld) [#/Vol] 455 10*3/uL High 150-400 [facility] Comment on above: Order Comment: Speci men Type: BLOOD SPECIMENOrdering Facility: [facility] Address: [address] [place], [place] [phone] Performed By: #### B MP #### [address] [phone] RBC (Bld) [#/Vol] 3.51 10*6/uL Low 3.90-5.20 [facility] Comment on above: Order Comment: Speci men Type: BLOOD SPECIMENOrdering Facility: [facility] Address: [address] [place] [address] Performed By: #### B MP #### [place] [address] WBC (Bld) [#/Vol] 6.68 10*3/uL Normal 3.70-11.00 [facility] Comment on above: Order Comment: Speci men Type: BLOOD SPECIMENOrdering Facility: [facility] Address: [address] [place] [address] Performed By: #### B #### [facility] [address] [place] [address] CNDSon 04-05-2022 CNDS HNO ID: [id number] Author: Jessi Sheets APRN.ELECTRICAL JOURNEYMAN Service: Colorectal Author Type: Nurse Practitioner Type: Discharge Summary Filed: 04/05/2022 11:10 AM Note Text: Attestation signed by Mary Obrien MD at 04/05/2022 12:54 PM [facility] STAFF PHYSICIAN NOTE [...] of the summary. CONSULTING TEAMS DURING HOSPITALIZATION: [facility] Treatment Team: Attending Provider: Mary Obrien [...] only. Pain controlled with TAPs and a COMPENSATION CONSULTANT. Remained nauseated. POD4 re-advanced to full liquids [...] by mo (more content not included)... Normal [facility] Magnesium SerPl-mCncon 04-05 Magnesium [Mass/Vol] 2.0 mg/dL Normal 1.7-2.3 [facility] Comment on above: Order Comment: Speci men Type: BLOOD SPECIMEN Ordering Facility: [facility] Address: [address] [place] [address] Performed By: #### 5 8410-2 #### [facility] CLIA [id number] [address] [place] [address] [place] NURSING PROGon 04-05-2022 NURSING PROG HNO ID: [id number] Author: Liliana Mayer RN Service: ? 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 This note was completed by: Liliana Mayer [facility] NURSING PROG HNO ID: [id number] Author: Liliana Mayer RN Service: ? Author [...] This note was completed by: Liliana Mayer [facility] NURSING PROG HNO ID: [id number] Author: Eagle Gu RN Service: ? Author Type: Registered Nurse Type: Nursing Progress Note Filed: 04/04/2022 10:58 PM Note Text: Nursing Progress Note Patient Name: Mary Leal Patient Location: __ Daily Note:04/04/22 2140 Pt is alert and oriented x3. Pt mabulating independently. Surgical sites intact. Pt refusing IVF, pt states she drinks enough water. This note was completed by: Eagle Gu [facility] NUTRITIONon 04-05-2022 NUTRITION HNO ID: [id number] Author: Merced Morales DTR Service: Nutrition Therapy Author Type: Milk Route Deliverer Type: Nutrition Filed: 04/05/2022 10:42 AM Note Text: NUTRITION THERAPY GYN PHYSICIAN NOTE SERVICE DATE: 04/05/2022 SERVICE TIME: 9:45 [...] DATE: April 05, 2022 TIME: 9:54 AM [facility] Phosphate SerPl-mCncon 04-05 Phosphate [Mass/Vol] 4.6 mg/dL Normal 2.7-4.8 [facility] Comment on above: Order Comment: Speci men Type: BLOOD SPECIMEN Ordering Facility: [facility] Address: [address] [place], [place] [address] Performed By: #### 5 8410-2 #### [facility] CLIA [id number] [address] [id number] [place] Basic metabolic 2000 panelon 04-04-2022 Anion gap [Moles/Vol] 10 mmol/L Normal 9-18 [facility] Comment on above: Order Comment: Speci men Type: BLOOD SPECIMENOrdering Facility: [facility] Address: [address] [place], [place] [address] Performed By: #### 2 4321-2, , 2776-11 ####[facility] [id number] [place] [address] [place] Calcium [Mass/Vol] 8.9 mg/dL Normal 8.5-10.2 [facility] Comment on above: Order Comment: Speci men Type: BLOOD SPECIMENOrdering Facility: [facility] Address: [address] [place] [address] Performed By: #### 2 4321-2, , 2776-11 ####[facility] [id number] [place] [address] [place] Chloride [Moles/Vol] 104 mmol/L Normal 97-105 [facility] Comment on above: Order Comment: Speci men Type: BLOOD SPECIMENOrdering Facility: [facility] Address: [address] [place], [place] [address] Performed By: #### 2 4321-2, , 2776-11 ####[facility] [id number] [address] [id number] [place] CO2 [Moles/Vol] 26 mmol/L Normal 22-30 [facility] Comment on above: Order Comment: Speci men Type: BLOOD SPECIMENOrdering Facility: [facility] Address: [address] [place], [place] [address] Performed By: #### 2 4321-2, , 2776-11 ####[facility] [id number] [address] [id number] [place] Creatinine [Mass/Vol] 0.56 mg/dL Low 0.58-0.96 [facility] Comment on above: Order Comment: Specamena men Type: BLOOD SPECIMENOrdering Facility: [facility] Address: [address] [place] [phone] Performed By: #### 2 4321-2, , 2776-11 ####[facility] [id number] [place] [id number] [place] ESTIMATED GLOMERULAR FILTRATION RATE 112 mL/min/1.73m??? Normal >=60 [facility] Comment on above: Order Comment: Leanne terry Type: BLOOD SPECIMENOrdering Facility: [facility] Address: [address] [place], [place] [address] Result Comment: Mary mated Glomerular Filtration Rate [...] Performed By: #### 2 4321-2, , 2776-11 ####[facility] [id number] [place] [id number] [place] Glucose [Mass/Vol] 112 mg/dL High 74-99 [facility] Comment on above: Order Comment: Speci harrison Type: BLOOD SPECIMENOrdering Facility: [facility] Address: [address] [place] [phone] Result Comment: The [place] Diabetes Association (ADA) provides guidance for cutoff [...] Standards of Medical Care in Diabetes 2016, [place] Diabetes Association. Diabetes Care. 2016.39(Suppl 1). Performed By: #### 2 4321-2, , 2776-11 ####[facility] [id number] [place] [id number] [place] Potassium [Moles/Vol] 3.9 mmol/L Normal 3.7-5.1 [facility] Comment on above: Order Comment: Leanne terry Type: BLOOD SPECIMENOrdering Facility: [facility] Address: [address] [place] [address] Performed By: #### 2 432-2, , 2776-11 ####[facility] [id number] [place] [id number] [place] Sodium [Moles/Vol] 140 mmol/L Normal 136-144 [facility] Comment on above: Order Comment: Leanne terry Type: BLOOD SPECIMENOrdering Facility: [facility] Address: [address] [place] [address] Performed By: #### 2 432-2, , 2776-11 ####[facility] [id number] [place] [id number] [place] Urea nitrogen [Mass/Vol] 3 mg/dL Low 7-21 [facility] Comment on above: Order Comment: Everettei harrison Type: BLOOD SPECIMENOrdering Facility: [facility] Address: [address] [place] [address] Performed By: #### 2 432-2, , 2776-11 ####[facility] [id number] [place] [id number] [place] CBC W Auto Differential pane l (Bld)on 04-04-2022 Basophils (Bld) [#/Vol] 0.03 10*3/uL Normal <0.11 [facility] Comment on above: Order Comment: Speci men Type: BLOOD SPECIMEN Ordering Facility: [facility] Address: [address] [place] [address] Performed By: #### 5 7021-8 #### [facility] CLIA [id number] [address] [place] [address] [place] Basophils/100 WBC (Bld) 0.5 % Normal [facility] Comment on above: Order Comment: Speci men Type: BLOOD SPECIMEN Ordering Facility: [facility] Address: [address] [place] [address] Performed By: #### 5 7021-8 #### [facility] CLIA [id number] [address] [place] [address] [facility] [place] Differential cell count method Nom (Bld) Auto Normal [facility] Comment on above: Order Comment: Speci men Type: BLOOD SPECIMEN Ordering Facility: [facility] Address: [address] [place] [address] Performed By: #### 5 7021-8 #### [facility] CLIA [id number] [address] [place] [address] [place] Eosinophils (Bld) [#/Vol] 0.48 10*3/uL High <0.46 [facility] Comment on above: Order Comment: Speci men Type: BLOOD SPECIMEN Ordering Facility: [facility] Address: [address] [place] [address] Performed By: #### 5 7021-8 #### [facility] CLIA [id number] [address] [place] [address] [place] Eosinophils/100 WBC (Bld) 7.7 % Normal [facility] Comment on above: Order Comment: Speci men Type: BLOOD SPECIMEN Ordering Facility: [facility] Address: [address] [place] [address] Performed By: #### 5 7021-8 #### [facility] CLIA [id number] [address] [place] [address] [place] Erythrocyte distribution width (RBC) [Ratio] 12.7 % Normal 11.5-15.0 [facility] Comment on above: Order Comment: Speci men Type: BLOOD SPECIMEN Ordering Facility: [facility] Address: [address] [place] [address] Performed By: #### 5 7021-8 #### [facility] CLIA [id number] [address] [place] [address] OF [place] Hematocrit (Bld) [Volume fraction] 31.2 % Low 36.0-46.0 [facility] Comment on above: Order Comment: Speci men Type: BLOOD SPECIMEN Ordering Facility: [facility] Address: [address] [place] [address] Performed By: #### 5 7021-8 #### [facility] CLIA [id number] [address] [place] [address] [place] Hemoglobin (Bld) [Mass/Vol] 10.7 g/dL Low 11.5-15.5 [facility] Comment on above: Order Comment: Speci men Type: BLOOD SPECIMEN Ordering Facility: [facility] Address: [address] [place] [address] Performed By: #### 5 7021-8 #### [facility] CLIA [id number] [address] [place] [address] [place] IMMATURE GRAN % 0.5 % Normal [facility] Comment on above: Order Comment: Speci men Type: BLOOD SPECIMEN Ordering Facility: [facility] Address: [address] [place] [address] Performed By: #### 5 7021-8 #### [facility] CLIA [id number] [address] [place] [address] OF [place] IMMATURE GRAN ABS 0.03 k/uL Normal <0.10 [facility] Comment on above: Order Comment: Speci men Type: BLOOD SPECIMEN Ordering Facility: [facility] Address: [address] [place] [address] Performed By: #### 5 7021-8 #### [facility] CLIA [id number] [address] [place] [address] [place] Lymphocytes (Bld) [#/Vol] 1.13 10*3/uL Normal 1.00-4.00 [facility] Comment on above: Order Comment: Speci men Type: BLOOD SPECIMEN Ordering Facility: [facility] Address: [address] [place] [address] Performed By: #### 5 7021-8 #### [facility] CLIA [id number] [address] [place] [address] [place] Lymphocytes/100 WBC (Bld) 18.2 % Normal [facility] Comment on above: Order Comment: Speci men Type: BLOOD SPECIMEN Ordering Facility: [facility] Address: [address] [place] [address] Performed By: #### 5 7021-8 #### [facility] CLIA [id number] [address] [place] [address] [place] MCH (RBC) [Entitic mass] 29.9 pg Normal 26.0-34.0 [facility] Comment on above: Order Comment: Speci men Type: BLOOD SPECIMEN Ordering Facility: [facility] Address: [address] [place] [address] Performed By: #### 5 7021-8 #### [facility] CLIA [id number] [address] [place] [address] [place] MCHC (RBC) [Mass/Vol] 34.3 g/dL Normal 30.5-36.0 [facility] Comment on above: Order Comment: Speci men Type: BLOOD SPECIMEN Ordering Facility: [facility] Address: [address] [place] [address] Performed By: #### 5 7021-8 #### [facility] CLIA [id number] [address] [place] [address] [place] MCV (RBC) [Entitic vol] 87.2 fL Normal 80.0-100.0 [facility] Comment on above: Order Comment: Speci men Type: BLOOD SPECIMEN Ordering Facility: [facility] Address: [address] [place] [address] Performed By: #### 5 7021-8 #### [facility] CLIA [id number] [address] [place] [address] [place] Monocytes (Bld) [#/Vol] 0.36 10*3/uL Normal <0.87 [facility] Comment on above: Order Comment: Speci men Type: BLOOD SPECIMEN Ordering Facility: [facility] Address: [address] [place] [address] Performed By: #### 5 7021-8 #### [facility] CLIA [id number] [address] [place] [address] [place] Monocytes/100 WBC (Bld) 5.8 % Normal [facility] Comment on above: Order Comment: Speci men Type: BLOOD SPECIMEN Ordering Facility: [facility] Address: [address] [place] [address] Performed By: #### 5 7021-8 #### [facility] CLIA [id number] [address] [place] [address] [place] Neutrophils (Bld) [#/Vol] 4.18 10*3/uL Normal 1.45-7.50 [facility] Comment on above: Order Comment: Speci men Type: BLOOD SPECIMEN Ordering Facility: [facility] Address: [address] [place] [address] Performed By: #### 5 7021-8 #### [facility] CLIA [id number] [address] [place] [address] [place] Neutrophils/100 WBC (Bld) 67.3 % Normal [facility] Comment on above: Order Comment: Speci men Type: BLOOD SPECIMEN Ordering Facility: [facility] Address: [address] [place] [address] Performed By: #### 5 7021-8 #### [facility] CLIA [id number] [address] [place] [address] [place] Nucleated RBC (Bld) [#/Vol] 10*3/uL Normal <0.01 [facility] Comment on above: Order Comment: Speci men Type: BLOOD SPECIMEN Ordering Facility: [facility] Address: [address] Performed By: #### 5 7021-8 #### [facility] CLIA [id number] [address] [place] [address] [place] Nucleated RBC/100 WBC (Bld) [Ratio] 0.0 /100 WBC Normal [facility] Comment on above: Order Comment: Speci men Type: BLOOD SPECIMEN Ordering Facility: [facility] Address: [address] [place] [address] Performed By: #### 5 7021-8 #### [facility] CLIA [id number] [address] [place] [address] [place] [place] Platelet mean volume (Bld) [Entitic vol] 8.7 fL Low 9.0-12.7 [facility] Comment on above: Order Comment: Speci men Type: BLOOD SPECIMEN Ordering Facility: [facility] Address: [address] [place] [address] Performed By: #### 5 7021-8 #### [facility] CLIA [id number] [address] [place] [address] [place] Platelets (Bld) [#/Vol] 436 10*3/uL High 150-400 [facility] Comment on above: Order Comment: Speci men Type: BLOOD SPECIMEN Ordering Facility: [facility] Address: [address] [place] [address] Performed By: #### 5 7021-8 #### [facility] CLIA [id number] [address] [place] [address] [place] RBC (Bld) [#/Vol] 3.58 10*6/uL Low 3.90-5.20 [facility] Comment on above: Order Comment: Speci men Type: BLOOD SPECIMEN Ordering Facility: [facility] Address: [address] [place], [place] [address] Performed By: #### 5 7021-8 #### [facility] CLIA [id number] [address] [place] [address] [place] WBC (Bld) [#/Vol] 6.21 10*3/uL Normal 3.70-11.00 [facility] Comment on above: Order Comment: Speci men Type: BLOOD SPECIMEN Ordering Facility: [facility] Address: [address] [place], [place] [address] Performed By: #### 5 7021-8 #### [facility] CLIA [id number] [address] [place] [address] [place] Magnesium SerPl-mCncon 04-04 Magnesium [Mass/Vol] 2.1 mg/dL Normal 1.7-2.3 [facility] Comment on above: Order Comment: Speci men Type: BLOOD SPECIMENOrdering Facility: [facility] Address: [address] [place] [address] Performed By: #### 2 4321-2, 62366-5, 2777-1 ####[facility] [id number] [place] [address] [place] NURSING PROGon 04-04-2022 NURSING PROG HNO ID: [id number] Author: Dipti Crowley RN Service: Nursing Author Type: Registered Nurse Type: Nursing Progress Note Filed: 04/04/2022 7:47 PM Note Text: Nursing Progress Note Patient Name: Mary Leal Patient Location: __ Daily Note:Patient refusing further IVF. This note was completed by: Dipti Crowley [facility] NURSING PROG HNO ID: [id number] Author: Dipti Crowley RN Service: Nursing Author Type: Registered Nurse Type: Nursing Progress Note Filed: 04/04/2022 11:11 AM Note Text: Nursing Progress Note Patient Name: Mary Leal Patient Location: [id number]-04 __ Daily Note: Patient up in chair and up ambulating in hallway with steady gait. VSS. RA POx. IVF as ordered. 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 Dressing to old ostomy site CDI. Abdomen soft and tender. Patient states, feeling much better . Diet advanced, yet patient did not take in 25% of tray. Patient informed RN that I am leaving today. Do what you gotta do. I can do all of this at home . Dr Lamas paged and notified, but post call. Will page SR media production manager. Will continue to monitor. Call light in reach. This note was completed by: Dipti Crowley [facility] Phosphate SerPl-mCncon 04-04 Phosphate [Mass/Vol] 3.2 mg/dL Normal 2.7-4.8 [facility] Comment on above: Order Comment: Speci men Type: BLOOD SPECIMENOrdering Facility: [facility] Address: [address] [place] [address] Performed By: #### 2 4321-2, 67227-5, 2777-1 ####[facility] [id number] [place] [address] [place] ALLIED HEALTHon 04-03-2022 ALLIED HEALTH HNO ID: [id number] Author: Carmen Daley, MALAIKA Service: ? Author Type: Electrician Wiring Type: Allied Health Filed: 04/03/2022 5:35 PM [...] Martinez April 03, 2022 5:35 PM Normal [facility] Basic metabolic 2000 panelon 04-03-2022 Anion gap [Moles/Vol] 10 mmol/L Normal 9-18 [facility] Comment on above: Order Comment: Speci men Type: BLOOD SPECIMENOrdering Facility: [facility] Address: [address] [place] [address] Performed By: #### B MP #### [place] [phone] Calcium [Mass/Vol] 8.4 mg/dL Low 8.5-10.2 [facility] Comment on above: Order Comment: Speci men Type: BLOOD SPECIMENOrdering Facility: [facility] Address: [address] [place] [address] Performed By: #### B MP #### [place] [id number] Chloride [Moles/Vol] 103 mmol/L Normal 97-105 [facility] Comment on above: Order Comment: Speci men Type: BLOOD SPECIMENOrdering Facility: [facility] Address: [address] [place] [address] Performed By: #### B MP #### [place] [id number] CO2 [Moles/Vol] 25 mmol/L Normal 22-30 [facility] Comment on above: Order Comment: Speci men Type: BLOOD SPECIMENOrdering Facility: [facility] Address: [address] [place] [address] Performed By: #### B MP #### [phone] Creatinine [Mass/Vol] 0.60 mg/dL Normal 0.58-0.96 [facility] Comment on above: Order Comment: Speci men Type: BLOOD SPECIMENOrdering Facility: [facility] Address: [address] [id number] Performed By: #### B MP #### [place] [id number] [place] [address] ESTIMATED GLOMERULAR FILTRATION RATE 110 mL/min/1.73m??? Normal >=60 [facility] Comment on above: Order Comment: Speci men Type: BLOOD SPECIMENOrdering Facility: [facility] Address: [address] [place], [place] [address] Result Comment: Mary mated Glomerular Filtration Rate [...] GFR. Performed By: #### B MP #### [place] [address] Glucose [Mass/Vol] 106 mg/dL High 74-99 [facility] Comment on above: Order Comment: Speci men Type: BLOOD SPECIMENOrdering Facility: [facility] Address: [address] [place] [address] Result Comment: The [place] Diabetes Association (ADA) provides guidance for cutoff [...] Standards of Medical Care in Diabetes 2016, [place] Diabetes Association. Diabetes Care. 2016.39(Suppl 1). Performed By: #### B MP #### [place] [id number] [place] [address] Potassium [Moles/Vol] 3.3 mmol/L Low 3.7-5.1 [facility] Comment on above: Order Comment: Speci men Type: BLOOD SPECIMENOrdering Facility: [facility] Address: [address] [place] [address] Performed By: #### B MP #### [place] [phone] Sodium [Moles/Vol] 138 mmol/L Normal 136-144 [facility] Comment on above: Order Comment: Speci men Type: BLOOD SPECIMENOrdering Facility: [facility] Address: [address] [place] [address] Performed By: #### B MP #### [phone] Urea nitrogen [Mass/Vol] 4 mg/dL Low 7-21 [facility] Comment on above: Order Comment: Speci men Type: BLOOD SPECIMENOrdering Facility: [facility] Address: [address] [place] [address] Performed By: #### B MP #### [place] [phone] CBC W Auto Differential pane l (Bld)on 04-03-2022 Basophils (Bld) [#/Vol] 0.03 10*3/uL Normal <0.11 [facility] Comment on above: Order Comment: Speci men Type: BLOOD SPECIMENOrdering Facility: [facility] Address: [address] [place] [address] Performed By: #### B MP #### [place] [phone] Basophils/100 WBC (Bld) 0.4 % Normal [facility] Comment on above: Order Comment: Speci men Type: BLOOD SPECIMENOrdering Facility: [facility] Address: [address] [place] [address] Performed By: #### B MP #### [phone] Differential cell count method Nom (Bld) Auto Normal [facility] Comment on above: Order Comment: Speci men Type: BLOOD SPECIMENOrdering Facility: [facility] Address: [address] [place] [address] Performed By: #### B MP #### [place] [id number] Eosinophils (Bld) [#/Vol] 0.48 10*3/uL High <0.46 [facility] Comment on above: Order Comment: Speci men Type: BLOOD SPECIMENOrdering Facility: [facility] Address: [address] [place] [address] Performed By: #### B MP #### [place] [address] Eosinophils/100 WBC (Bld) 6.5 % Normal [facility] Comment on above: Order Comment: Speci men Type: BLOOD SPECIMENOrdering Facility: [facility] Address: [address] [place] [address] Performed By: #### B MP #### [place] [address] Erythrocyte distribution width (RBC) [Ratio] 12.5 % Normal 11.5-15.0 [facility] Comment on above: Order Comment: Speci men Type: BLOOD SPECIMENOrdering Facility: [facility] Address: [address] [place] [address] Performed By: #### B MP #### [place] [address] Hematocrit (Bld) [Volume fraction] 29.5 % Low 36.0-46.0 [facility] Comment on above: Order Comment: Speci men Type: BLOOD SPECIMENOrdering Facility: [facility] Address: [address] [place] [address] Performed By: #### B MP #### [address] Hemoglobin (Bld) [Mass/Vol] 10.2 g/dL Low 11.5-15.5 [facility] Comment on above: Order Comment: Speci men Type: BLOOD SPECIMENOrdering Facility: [facility] Address: [address] [place] [address] Performed By: #### B MP #### [place] [id number] IMMATURE GRAN % 0.5 % Normal [facility] Comment on above: Order Comment: Speci men Type: BLOOD SPECIMENOrdering Facility: [facility] Address: [address] [place] [address] Performed By: #### B MP #### [place] [id number] IMMATURE GRAN ABS 0.04 k/uL Normal <0.10 [facility] Comment on above: Order Comment: Speci men Type: BLOOD SPECIMENOrdering Facility: [facility] Address: [address] [place] [address] Performed By: #### B MP #### [address] Lymphocytes (Bld) [#/Vol] 1.11 10*3/uL Normal 1.00-4.00 [facility] Comment on above: Order Comment: Speci men Type: BLOOD SPECIMENOrdering Facility: [facility] Address: [address] [place] [address] Performed By: #### B MP #### [place] [id number] Lymphocytes/100 WBC (Bld) 15.0 % Normal [facility] Comment on above: Order Comment: Speci men Type: BLOOD SPECIMENOrdering Facility: [facility] Address: [address] [place] [address] Performed By: #### B MP #### [place] [id number] MCH (RBC) [Entitic mass] 30.1 pg Normal 26.0-34.0 [facility] Comment on above: Order Comment: Speci men Type: BLOOD SPECIMENOrdering Facility: [facility] Address: [address] [place] [address] Performed By: #### B MP #### [place] [phone] MCHC (RBC) [Mass/Vol] 34.6 g/dL Normal 30.5-36.0 [facility] Comment on above: Order Comment: Speci men Type: BLOOD SPECIMENOrdering Facility: [facility] Address: [address] [place] [address] Performed By: #### B MP #### [place] [phone] MCV (RBC) [Entitic vol] 87.0 fL Normal 80.0-100.0 [facility] Comment on above: Order Comment: Speci men Type: BLOOD SPECIMENOrdering Facility: [facility] Address: [address] [place] [address] Performed By: #### B MP #### [place] [phone] Monocytes (Bld) [#/Vol] 0.46 10*3/uL Normal <0.87 [facility] Comment on above: Order Comment: Speci men Type: BLOOD SPECIMENOrdering Facility: [facility] Address: [address] [place] [address] Performed By: #### B MP #### [place] [phone] Monocytes/100 WBC (Bld) 6.2 % Normal [facility] Comment on above: Order Comment: Speci men Type: BLOOD SPECIMENOrdering Facility: [facility] Address: [address] [place] [address] Performed By: #### B MP #### [place] [phone] Neutrophils (Bld) [#/Vol] 5.27 10*3/uL Normal 1.45-7.50 [facility] Comment on above: Order Comment: Speci men Type: BLOOD SPECIMENOrdering Facility: [facility] Address: [address] [place] [address] Performed By: #### B MP #### [place] [address] Neutrophils/100 WBC (Bld) 71.4 % Normal [facility] Comment on above: Order Comment: Speci men Type: BLOOD SPECIMENOrdering Facility: [facility] Address: [address] [place] [address] Performed By: #### B MP #### [place] [address] Nucleated RBC (Bld) [#/Vol] 10*3/uL Normal <0.01 [facility] Comment on above: Order Comment: Speci men Type: BLOOD SPECIMENOrdering Facility: [facility] Address: [address] [place] [address] Performed By: #### B MP #### [place] [address] Nucleated RBC/100 WBC (Bld) [Ratio] 0.0 /100 WBC Normal [facility] Comment on above: Order Comment: Speci men Type: BLOOD SPECIMENOrdering Facility: [facility] Address: [address] [place] [address] Performed By: #### B MP #### [place] [address] Platelet mean volume (Bld) [Entitic vol] 8.6 fL Low 9.0-12.7 [facility] Comment on above: Order Comment: Speci men Type: BLOOD SPECIMENOrdering Facility: [facility] Address: [address] [place] [address] Performed By: #### B MP #### [place] [id number] Platelets (Bld) [#/Vol] 342 10*3/uL Normal 150-400 [facility] Comment on above: Order Comment: Speci men Type: BLOOD SPECIMENOrdering Facility: [facility] Address: [address] [place] [address] Performed By: #### B MP #### [place] [address] RBC (Bld) [#/Vol] 3.39 10*6/uL Low 3.90-5.20 [facility] Comment on above: Order Comment: Speci men Type: BLOOD SPECIMENOrdering Facility: [facility] Address: [address] [place] [address] Performed By: #### B MP #### [place] [address] WBC (Bld) [#/Vol] 7.39 10*3/uL Normal 3.70-11.00 [facility] Comment on above: Order Comment: Speci men Type: BLOOD SPECIMENOrdering Facility: [facility] Address: [address] [place] [address] Performed By: #### B MP #### [place] [address] CONSULT PROGon 04-03-2022 CONSULT PROG HNO ID: [id number] Author: Sarwat Huddleston PA-C Service: Pain Management Author Type: Physician Home School Teacher Type: Consult Progress Note Filed: 04/03/2022 8:39 [...] appears comf (more content not included)... Normal [facility] CT ABD/PEL W IVCONon 022 CT [...] Lower thorax: Visualized lung bases are clear. Supervisor Wrapping Room (topogram) images: No additional findings. IMPRESSION: Postsurgical [...] collection is present in the lower pelvis Pattern Chain Builder[facility] Transcribe Date/Time: Apr 03 2022 9:00P Dictated by : SHELBY ESPINOSA MD This examination was interpreted and the report reviewed and electronically signed by: SHELBY ESPINOSA MD on Apr 03 2022 9:12PM EST [id number] Normal [facility] Magnesium SerPl-mCncon 04-03 Magnesium [Mass/Vol] 1.6 mg/dL Low 1.7-2.3 [facility] Comment on above: Order Comment: Speci men Type: BLOOD SPECIMENOrdering Facility: [facility] Address: [facility] [place] [address] Performed By: #### B #### [facility] [address] [place] [address] NURSING PROGon 04-03-2022 NURSING PROG HNO ID: [id number] Author: Beto Ford RN Service: ? Author Type: Registered Nurse Type: Nursing Progress Note Filed: 04/03/2022 9:39 PM Note Text: Nursing Progress Note Patient Name: Mary Leal Patient Location: [place] [address] __ Daily Note: 2129: Pt declined to have all oral medications. They just go right through me. I cannot take them. . Made RN aware. This note was completed by: Beto Ford [facility] NURSING PROG HNO ID: [id number] Author: Dipti Crowley RN Service: Nursing Author Type: Registered Nurse Type: Nursing Progress Note Filed: 04/03/2022 2:51 PM Note Text: Nursing Progress Note Patient Name: Mary Leal Patient Location: [place] [address]/AE5K-75 __ Daily Note:Patient unable to tolerate powder form of potassium due to nausea. Patient unable to tolerate IV form, it feels like It's paralyzing my arm . Attempted to dilute boluses and lower rates with no success. SR paged with events ([phone]). Awaiting further orders. This note was completed by: Dipti [facility] NURSING PROG HNO ID: [id number] Author: Dipti Crowley RN Service: Nursing Author Type: Registered Nurse Type: Nursing Progress Note Filed: 04/03/2022 11:33 AM Note Text: Nursing Progress Note Patient Name: Mary Leal Patient Location: -PK/YZ0D-70 __ Daily Note: Patient Up independently in room and in hallway. IVF infusing as ordered. B/L Tap Blocks discontinued and removed by PA. Old ostomy dressing changed. Scant amount of drainage on dressing. Fresh ABD with tape applied. 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 BS Hypoactive. No flatus per [...] monitor. This note was completed by: Dipti [facility] NURSING PROG HNO ID: [id number] Author: Chava Remy RN Service: PICC Team [...] 03, 2022 TIME: 8:37 AM PAGER/CONTACT #: [facility] NURSING PROG HNO ID: [id number] Author: Kev Leone RN Service: ? Author Type: Registered Nurse Type: Nursing Progress Note Filed: 04/03/2022 3:50 AM Note Text: Nursing Progress Note Patient Name: Mary Leal Patient [facility]/YI1P-94 __ Daily Note: 2100: Pt refusing all PO meds at this time, states she's concerned that she's not digesting them properly. Paan currently being controlled with bilateral blocks and PRN IV pain medication. This note was completed by: Kev Leone [facility] Phosphate SerPl-mCncon 04-03 Phosphate [Mass/Vol] 3.3 mg/dL Normal 2.7-4.8 [facility] Comment on above: Order Comment: Speci men Type: BLOOD SPECIMENOrdering Facility: [facility] Address: [address] [place] [address] Performed By: #### B MP #### [place] [address] [facility] 04-02-2022 ALLIED HEALTH HNO ID: [id number] Author: RT Ban(Asiya) Service: Radiology Author Type: [...] RT(R) April 02, 2022 9:12 AM Normal [facility] CONSULT PROGon 04-02-2022 CONSULT PROG HNO ID: [id number] Author: Sarwat Huddleston PA-C Service: Pain Management Author Type: Physician Home School Teacher Type: Consult Progress Note Filed: 04/02/2022 9:00 [...] 29.3 5 (more content not included)... Normal [facility] NURSING PROGon 04-02-2022 NURSING PROG HNO ID: [id number] Author: Dipti Crowley, MAKI Service: Nursing Author [...] This note was completed by: Dipti Crowley [facility] XR ABDOMEN 1V SUPINEon 04-02 XR ABDOMEN [...] may be of help for further evaluation. Pattern Chain Builder: [facility] Transcribe Date/Time: Apr 02 2022 9:16A Dictated by : JOAQUIN BYRANT MD This examination was interpreted and the report reviewed and electronically signed by: JOAQUIN BRYANT MD on Apr 02 2022 9:19AM EST [id number] [facility] Basic metabolic 2000 panelon 04-01-2022 Anion gap [Moles/Vol] 9 mmol/L Normal 9-18 [facility] Comment on above: Order Comment: Speci men Type: BLOOD SPECIMENOrdering Facility: [facility] Address: [address] [place] Performed By: #### B MP #### [place] [id number] Calcium [Mass/Vol] 7.9 mg/dL Low 8.5-10.2 [facility] Comment on above: Order Comment: Speci men Type: BLOOD SPECIMENOrdering Facility: [facility] Address: [address] [place] [address] Performed By: #### B MP #### [place] [id number] Chloride [Moles/Vol] 106 mmol/L High 97-105 [facility] Comment on above: Order Comment: Speci men Type: BLOOD SPECIMENOrdering Facility: [facility] Address: [address] [place] [address] Performed By: #### B MP #### [place] [id number] CO2 [Moles/Vol] 26 mmol/L Normal 22-30 [facility] Comment on above: Order Comment: Speci men Type: BLOOD SPECIMENOrdering Facility: [facility] Address: [address] [place] [address] Performed By: #### B MP #### [place] [id number] Creatinine [Mass/Vol] 0.68 mg/dL Normal 0.58-0.96 [facility] Comment on above: Order Comment: Speci men Type: BLOOD SPECIMENOrdering Facility: [facility] Address: [address] [place], [place] [id number] Performed By: #### B MP #### [place] [id number] ESTIMATED GLOMERULAR FILTRATION RATE 107 mL/min/1.73m??? Normal >=60 [facility] Comment on above: Order Comment: Speci men Type: BLOOD SPECIMENOrdering Facility: [facility] Address: [address] [place], [place] [id number] Result Comment: Mary mated Glomerular Filtration Rate [...] GFR. Performed By: #### B MP #### [place] [phone] Glucose [Mass/Vol] 99 mg/dL Normal 74-99 [facility] Comment on above: Order Comment: Leanne terry Type: BLOOD SPECIMENOrdering Facility: [facility] Address: [address] [id number] Result Comment: The [place] Diabetes Association (ADA) provides guidance for cutoff [...] Standards of Medical Care in Diabetes 2016, [place] Diabetes Association. Diabetes Care. 2016.39(Suppl 1). Performed By: #### B MP #### [place] [phone] Potassium [Moles/Vol] 3.7 mmol/L Normal 3.7-5.1 [facility] Comment on above: Order Comment: Leanne terry Type: BLOOD SPECIMENOrdering Facility: [facility] Address: [address] [place] [address] Performed By: #### B MP #### [place] [phone] Sodium [Moles/Vol] 141 mmol/L Normal 136-144 [facility] Comment on above: Order Comment: Leanne [facility] Type: BLOOD SPECIMENOrdering Facility: [facility] Address: [address] [place] [address] Performed By: #### B MP #### [place] [phone] Urea nitrogen [Mass/Vol] 4 mg/dL Low 7-21 [facility] Comment on above: Order Comment: Speci men Type: BLOOD SPECIMENOrdering Facility: [facility] Address: [address] [place] [address] Performed By: #### B MP #### [place] [phone] CBC panel Auto (Bld)on 04-01 Erythrocyte distribution width (RBC) [Ratio] 12.4 % Normal 11.5-15.0 [facility] Comment on above: Order Comment: Speci men Type: BLOOD SPECIMEN Ordering Facility: [facility] Address: [address] [place] [address] Performed By: #### 5 8410-2 #### [facility] CLIA [id number] [address] [place] [address] [place] Hematocrit (Bld) [Volume fraction] 29.3 % Low 36.0-46.0 [facility] Comment on above: Order Comment: Speci men Type: BLOOD SPECIMEN Ordering Facility: [facility] Address: [address] [place] [address] Performed By: #### 5 8410-2 #### [facility] CLIA [id number] [address] [place] [address] [place] Hemoglobin (Bld) [Mass/Vol] 9.6 g/dL Low 11.5-15.5 [facility] Comment on above: Order Comment: Speci men Type: BLOOD SPECIMEN Ordering Facility: [facility] Address: [address] [place] [address] Performed By: #### 5 8410-2 #### [facility] CLIA [id number] 70 [place] [address] [place] MCH (RBC) [Entitic mass] 29.4 pg Normal 26.0-34.0 [facility] Comment on above: Order Comment: Speci men Type: BLOOD SPECIMEN Ordering Facility: [facility] Address: [address] [place] [address] Performed By: #### 5 8410-2 #### [facility] CLIA [id number] [address] [place] [address] [place] [facility] MCHC (RBC) [Mass/Vol] 32.8 g/dL Normal 30.5-36.0 [facility] Comment on above: Order Comment: Speci men Type: BLOOD SPECIMEN Ordering Facility: [facility] Address: [address] [place] [address] Performed By: #### 5 8410-2 #### [facility] CLIA [id number] [address] [place] [address] [place] MCV (RBC) [Entitic vol] 89.9 fL Normal 80.0-100.0 [facility] Comment on above: Order Comment: Speci men Type: BLOOD SPECIMEN Ordering Facility: [facility] Address: [address] [place] [address] Performed By: #### 5 8410-2 #### [facility] CLIA [id number] [address] [place] [address] [place] Nucleated RBC (Bld) [#/Vol] 10*3/uL Normal <0.01 [facility] Comment on above: Order Comment: Speci men Type: BLOOD SPECIMEN Ordering Facility: [facility] Address: [address] [place] [address] Performed By: #### 5 8410-2 #### [facility] CLIA [id number] [address] [place] [address] [place] Platelet mean volume (Bld) [Entitic vol] 8.9 fL Low 9.0-12.7 [facility] Comment on above: Order Comment: Speci men Type: BLOOD SPECIMEN Ordering Facility: [facility] Address: [address] [place] [address] Performed By: #### 5 8410-2 #### [facility] CLIA [id number] [address] [place] [address] [place] Platelets (Bld) [#/Vol] 282 10*3/uL Normal 150-400 [facility] Comment on above: Order Comment: Speci men Type: BLOOD SPECIMEN Ordering Facility: [facility] Address: [address] [place] [address] Performed By: #### 5 8410-2 #### [facility] CLIA [id number] [address] [place] [address] [place] RBC (Bld) [#/Vol] 3.26 10*6/uL Low 3.90-5.20 [facility] Comment on above: Order Comment: Speci men Type: BLOOD SPECIMEN Ordering Facility: [facility] Address: [address] [place] [address] Performed By: #### 5 8410-2 #### [facility] CLIA [id number] [address] [place] [address] [place] WBC (Bld) [#/Vol] 7.39 10*3/uL Normal 3.70-11.00 [facility] Comment on above: Order Comment: Speci men Type: BLOOD SPECIMEN Ordering Facility: [facility] Address: [address] [place] [address] Performed By: #### 5 8410-2 #### [facility] CLIA [id number] [address] [place] [address] OF [facility] CONSULT PROGon 04-01-2022 CONSULT PROG HNO ID: [id number] Author: Joslyn Jain APRN.ELECTRICAL JOURNEYMAN Service: Pain Management Author Type: Nurse Practitioner [...] 0.67 Sod (more content not included)... Normal [facility] Magnesium SerPl-mCncon 04-01 Magnesium [Mass/Vol] 1.7 mg/dL Normal 1.7-2.3 [facility] Comment on above: Order Comment: Speci men Type: BLOOD SPECIMENOrdering Facility: [facility] Address: [address] [place] [address] Performed By: #### B MP #### [place] [address] NURSING PROGon 04-01-2022 NURSING PROG HNO ID: [id number] Author: Eagle Gu RN Service: ? Author Type: Registered Nurse Type: Nursing Progress Note Filed: 04/01/2022 9:56 PM Note Text: Nursing Progress Note Patient Name: Mary Leal Patient Location: [place] [address] __ Daily Note:04/01/222038 Pt is alert and oriented x3. Surgical sites intact. Tap blocks x2 intact. Made SROC aware of Pt experiencing sharp/stabbing pain in abdomen, rating 9/10. SROC recommended use of PRN Dilaudid This note was completed by: Eagle Gu [facility] NURSING PROG HNO ID: [id number] Author: Eagle Gu RN Service: ? Author Type: Registered Nurse Type: Nursing Progress Note Filed: 04/01/2022 1:52 AM Note Text: Nursing Progress Note Patient Name: Mary Leal Patient Location: / __ Daily Note:03/31/222030 Pt is alert and oriented x3. Surgical sites intact. Nerve blocks x2 intact. This note was completed by: Eagle Langford [facility] Phosphate SerPl-ncon 04-01 Phosphate [Mass/Vol] 2.8 mg/dL Normal 2.7-4.8 [facility] Comment on above: Order Comment: Laenne terry Type: BLOOD SPECIMENOrdering Facility: [facility] Address: [address] [place] [address] Performed By: #### B MP #### [place] [address] Basic metabolic 2000 panelon 03-31-2022 Anion gap [Moles/Vol] 10 mmol/L Normal 9-18 [facility] Comment on above: Order Comment: Leanne terry Type: BLOOD SPECIMEN Ordering Facility: [facility] Address: [address] [place] [address] Performed By: #### 5 8410-2 #### [facility] CLIA [id number] [address] [place] [address] [place] Calcium [Mass/Vol] 8.4 mg/dL Low 8.5-10.2 [facility] Comment on above: Order Comment: Speci men Type: BLOOD SPECIMEN Ordering Facility: [facility] Address: [address] [place] [address] Performed By: #### 5 8410-2 #### [facility] CLIA [id number] [address] [place] [address] [place] Chloride [Moles/Vol] 107 mmol/L High 97-105 [facility] Comment on above: Order Comment: Speci men Type: BLOOD SPECIMEN Ordering Facility: [facility] Address: [address] [place] [address] Performed By: #### 5 8410-2 #### [facility] CLIA [id number] [address] [place] [address] [place] CO2 [Moles/Vol] 23 mmol/L Normal 22-30 [facility] Comment on above: Order Comment: Speci men Type: BLOOD SPECIMEN Ordering Facility: [facility] Address: [address] [place] [address] Performed By: #### 5 8410-2 #### [facility] CLIA [id number] [address] [place] [address] [place] Creatinine [Mass/Vol] 0.67 mg/dL Normal 0.58-0.96 [facility] Comment on above: Order Comment: Speci men Type: BLOOD SPECIMEN Ordering Facility: [facility] Address: [address] [place] [address] Performed By: #### 5 8410-2 #### [facility] CLIA [id number] [address] [place] [address] [place] ESTIMATED GLOMERULAR FILTRATION RATE 107 mL/min/1.73m??? Normal >=60 [facility] Comment on above: Order Comment: Speci men Type: BLOOD SPECIMEN Ordering Facility: [facility] Address: [address] [place] [address] Result Comment: Mary mated Glomerular Filtration Rate [...] GFR. Performed By: #### 5 8410-2 #### [facility] CLIA [id number] [address] [place] [address] [place] Glucose [Mass/Vol] 84 mg/dL Normal 74-99 [facility] Comment on above: Order Comment: Leanne terry Type: BLOOD SPECIMEN Ordering Facility: [facility] Address: [address] [place] [address] Result Comment: The [place] Diabetes Association (ADA) provides guidance for cutoff [...] Standards of Medical Care in Diabetes 2016, [place] Diabetes Association. Diabetes Care. 2016.39(Suppl 1). Performed By: #### 5 8410-2 #### [facility] CLIA [id number] [address] [place] [address] [place] Potassium [Moles/Vol] 3.8 mmol/L Normal 3.7-5.1 [facility] Comment on above: Order Comment: Leanne terry Type: BLOOD SPECIMEN Ordering Facility: [facility] Address: [address] [place] [address] Performed By: #### 5 8410-2 #### [facility] CLIA [id number] [address] [place] [address] [place] Sodium [Moles/Vol] 140 mmol/L Normal 136-144 [facility] Comment on above: Order Comment: Leanne terry Type: BLOOD SPECIMEN Ordering Facility: [facility] Address: [address] [place] [address] Performed By: #### 5 8410-2 #### [facility] CLIA [id number] [address] [place] [address] [place] Urea nitrogen [Mass/Vol] 11 mg/dL Normal 7-21 [facility] Comment on above: Order Comment: Leanne terry Type: BLOOD SPECIMEN Ordering Facility: [facility] Address: [address] [place] [address] Performed By: #### 5 8410-2 #### [facility] CLIA [id number] [address] [place] [address] [place] CBC W Auto Differential pane l (Bld)on 03-31-2022 Basophils (Bld) [#/Vol] 0.03 10*3/uL Normal <0.11 [facility] Comment on above: Order Comment: Speci men Type: BLOOD SPECIMEN Ordering Facility: [facility] Address: [address] [place] [address] Performed By: #### 5 7021-8 #### [facility] CLIA [id number] [address] [place] [address] [place] Basophils/100 WBC (Bld) 0.4 % Normal [facility] Comment on above: Order Comment: Speci men Type: BLOOD SPECIMEN Ordering Facility: [facility] Address: [address] [place] [address] Performed By: #### 5 7021-8 #### [facility] CLIA [id number] [address] [place] [address] [place] Differential cell count method Nom (Bld) Auto Normal [facility] Comment on above: Order Comment: Speci men Type: BLOOD SPECIMEN Ordering Facility: [facility] Address: [address] [place] [address] Performed By: #### 5 7021-8 #### [facility] CLIA [id number] [address] [place] [address] [place] Eosinophils (Bld) [#/Vol] 0.38 10*3/uL Normal <0.46 [facility] Comment on above: Order Comment: Speci men Type: BLOOD SPECIMEN Ordering Facility: [facility] Address: [address] [place] [address] Performed By: #### 5 7021-8 #### [facility] CLIA [id number] [address] [place] [address] [place] Eosinophils/100 WBC (Bld) 4.4 % Normal [facility] Comment on above: Order Comment: Speci men Type: BLOOD SPECIMEN Ordering Facility: [facility] Address: [address] [place] [address] Performed By: #### 5 7021-8 #### [facility] CLIA [id number] [address] [place] [address] Erythrocyte distribution width (RBC) [Ratio] 12.6 % Normal 11.5-15.0 [facility] Comment on above: Order Comment: Speci men Type: BLOOD SPECIMEN Ordering Facility: [facility] Address: [address] [place] [address] Performed By: #### 5 7021-8 #### [facility] CLIA [id number] [address] [place] [address] [place] Hematocrit (Bld) [Volume fraction] 30.0 % Low 36.0-46.0 [facility] Comment on above: Order Comment: Speci men Type: BLOOD SPECIMEN Ordering Facility: [facility] Address: [address] [place] [address] Performed By: #### 5 7021-8 #### [facility] CLIA [id number] [address] [place] [address] [place] Hemoglobin (Bld) [Mass/Vol] 9.9 g/dL Low 11.5-15.5 [facility] Comment on above: Order Comment: Speci men Type: BLOOD SPECIMEN Ordering Facility: [facility] Address: [address] [place] [address] Performed By: #### 5 7021-8 #### [facility] CLIA [id number] [address] [place] [address] [place] IMMATURE GRAN % 0.4 % Normal [facility] Comment on above: Order Comment: Speci men Type: BLOOD SPECIMEN Ordering Facility: [facility] Address: [address] [place] [address] Performed By: #### 5 7021-8 #### [facility] CLIA [id number] [address] [place] [address] [place] IMMATURE GRAN ABS 0.03 k/uL Normal <0.10 [facility] Comment on above: Order Comment: Speci men Type: BLOOD SPECIMEN Ordering Facility: [facility] Address: [address] [place] [address] Performed By: #### 5 7021-8 #### [facility] CLIA [id number] [address] [place] [address] [place] Lymphocytes (Bld) [#/Vol] 1.24 10*3/uL Normal 1.00-4.00 [facility] Comment on above: Order Comment: Speci men Type: BLOOD SPECIMEN Ordering Facility: [facility] Address: [address] [place] [address] Performed By: #### 5 7021-8 #### [facility] CLIA [id number] [address] [place] [address] Lymphocytes/100 WBC (Bld) 14.5 % Normal [facility] Comment on above: Order Comment: Speci men Type: BLOOD SPECIMEN Ordering Facility: [facility] Address: [address] [place] [address] Performed By: #### 5 7021-8 #### [facility] CLIA [id number] [address] [place] [address] [place] MCH (RBC) [Entitic mass] 29.6 pg Normal 26.0-34.0 [facility] Comment on above: Order Comment: Speci men Type: BLOOD SPECIMEN Ordering Facility: [facility] Address: [address] [place] [address] Performed By: #### 5 7021-8 #### [facility] CLIA [id number] [address] [place] [address] [place] MCHC (RBC) [Mass/Vol] 33.0 g/dL Normal 30.5-36.0 [facility] Comment on above: Order Comment: Speci men Type: BLOOD SPECIMEN Ordering Facility: [facility] Address: [address] [place] [address] Performed By: #### 5 7021-8 #### [facility] CLIA [id number] [address] [place] [address] [place] MCV (RBC) [Entitic vol] 89.8 fL Normal 80.0-100.0 [facility] Comment on above: Order Comment: Speci men Type: BLOOD SPECIMEN Ordering Facility: [facility] Address: [address] [place] [address] Performed By: #### 5 7021-8 #### [facility] CLIA [id number] [address] [place] [address] [place] Monocytes (Bld) [#/Vol] 0.48 10*3/uL Normal <0.87 [facility] Comment on above: Order Comment: Speci men Type: BLOOD SPECIMEN Ordering Facility: [facility] Address: [address] [place] [address] Performed By: #### 5 7021-8 #### [facility] CLIA [id number] [address] [place] [address] [place] Monocytes/100 WBC (Bld) 5.6 % Normal [facility] Comment on above: Order Comment: Speci men Type: BLOOD SPECIMEN Ordering Facility: [facility] Address: [address] [place] [address] Performed By: #### 5 7021-8 #### [facility] CLIA [id number] [address] [place] [address] [place] Neutrophils (Bld) [#/Vol] 6.41 10*3/uL Normal 1.45-7.50 [facility] Comment on above: Order Comment: Speci men Type: BLOOD SPECIMEN Ordering Facility: [facility] Address: [address] [place] [address] Performed By: #### 5 7021-8 #### [facility] CLIA [id number] [address] [place] [address] [place] Neutrophils/100 WBC (Bld) 74.7 % Normal [facility] Comment on above: Order Comment: Speci men Type: BLOOD SPECIMEN Ordering Facility: [facility] Address: [address] [place] [address] Performed By: #### 5 7021-8 #### [facility] CLIA [id number] [address] [place] [address] [place] Nucleated RBC (Bld) [#/Vol] 10*3/uL Normal <0.01 [facility] Comment on above: Order Comment: Speci men Type: BLOOD SPECIMEN Ordering Facility: [facility] Address: [address] [place] [address] Performed By: #### 5 7021-8 #### [facility] CLIA [id number] [address] [place] [address] [place] Nucleated RBC/100 WBC (Bld) [Ratio] 0.0 /100 WBC Normal [facility] Comment on above: Order Comment: Speci men Type: BLOOD SPECIMEN Ordering Facility: [facility] Address: [address] [place] [address] Performed By: #### 5 7021-8 #### [facility] CLIA [id number] [address] [place] [address] [place] Platelet mean volume (Bld) [Entitic vol] 9.0 fL Normal 9.0-12.7 [facility] Comment on above: Order Comment: Speci men Type: BLOOD SPECIMEN Ordering Facility: [facility] Address: [address] [place] [address] Performed By: #### 5 7021-8 #### [facility] CLIA [id number] [address] [place] [address] [place] Platelets (Bld) [#/Vol] 246 10*3/uL Normal 150-400 [facility] Comment on above: Order Comment: Speci men Type: BLOOD SPECIMEN Ordering Facility: [facility] Address: [address] [place] [address] Performed By: #### 5 7021-8 #### [facility] CLIA [id number] [address] [place] [address] [place] RBC (Bld) [#/Vol] 3.34 10*6/uL Low 3.90-5.20 [facility] Comment on above: Order Comment: Speci men Type: BLOOD SPECIMEN Ordering Facility: [facility] Address: [address] [place] [address], [place] [address] Performed By: #### 5 7021-8 #### [facility] CLIA [id number] [address] [place] [address] [place] WBC (Bld) [#/Vol] 8.57 10*3/uL Normal 3.70-11.00 [facility] Comment on above: Order Comment: Speci men Type: BLOOD SPECIMEN Ordering Facility: [facility] Address: [address] [place] [address] Performed By: #### 5 7021-8 #### [facility] CLIA [id number] [address] [place] [id number] [facility] CONSULT PROGon 03-31-2022 CONSULT PROG HNO ID: [id number] Author: Joslyn Jain APRN.ELECTRICAL JOURNEYMAN Service: Pain Management Author Type: Nurse Practitioner [...] AND U (more content not included)... Normal [facility] Magnesium SerPl-mCncon 03-31 Magnesium [Mass/Vol] 1.6 mg/dL Low 1.7-2.3 [facility] Comment on above: Order Comment: Speci men Type: BLOOD SPECIMEN Ordering Facility: [facility] Address: [address] [place] [address] Performed By: #### 5 8410-2 #### [facility] CLIA [id number] NURSING PROGon 03-31-2022 NURSING PROG HNO ID: [id number] Author: Daisy Amaya RN Service: Nursing Author Type: Registered Nurse Type: Nursing Progress Note Filed: 03/31/2022 4:56 PM Note Text: Nursing Progress Note Patient Name: Mary Leal Patient Location: __ Daily Note: 0931- Pt A+Ox3. Up with standby assist. Ambulated pod multiple times. Laps intact. Old ostomy site WNL. Pt having liquid brown BMs. Voiding adq. No nausea, cp, or sob. Taps infusing per MAR. Pain controlled with PRN oxy. No further needs at this time. This note was completed by: Daisy Amaya [facility] NURSING PROG HNO ID: [id number] Author: Mariluz Carnes RN Service: Nursing Author Type: Registered Nurse Type: Nursing Progress Note Filed: 03/30/2022 11:47 PM Note Text: Nursing Progress Note Patient Name: Mary Leal Patient Location: __ Daily Note: Pt's BP 90/52. Patient asymptomatic. Surgery made aware. Order in for [employer] LR 500CC's. This note was completed by: Mariluz Carnes Normal [facility] Phosphate SerPl-mCncon 03-31 Phosphate [Mass/Vol] 2.7 mg/dL Normal 2.7-4.8 [facility] Comment on above: Order Comment: Speci men Type: BLOOD SPECIMEN Ordering Facility: [facility] Address: [address] [place] [address] Performed By: #### 5 8410-2 #### [facility] CLIA [id number] [address] [place] [address] [place] Basic metabolic 2000 panelon 03-30-2022 Anion gap [Moles/Vol] 10 mmol/L Normal 9-18 [facility] Comment on above: Order Comment: Speci men Type: BLOOD SPECIMEN Ordering Facility: [facility] Address: [address] [place] [address] Performed By: #### 1 9123-9, 2777-1, 69148-6 #### [facility] CLIA [id number] [address] [place] [address] [place] Calcium [Mass/Vol] 8.5 mg/dL Normal 8.5-10.2 [facility] Comment on above: Order Comment: Speci men Type: BLOOD SPECIMEN Ordering Facility: [facility] Address: [address] [place] [address] Performed By: #### 1 9123-9, 2777-1, 98645-5 #### [facility] CLIA [id number] [address] [place] [address] [place] Chloride [Moles/Vol] 103 mmol/L Normal 97-105 [facility] Comment on above: Order Comment: Speci men Type: BLOOD SPECIMEN Ordering Facility: [facility] Address: [address] [place] [address] Performed By: #### 1 9123-9, 2777-1, 03634-5 #### [facility] CLIA [id number] [address] [place] [address] [place] CO2 [Moles/Vol] 24 mmol/L Normal 22-30 [facility] Comment on above: Order Comment: Leanne terry Type: BLOOD SPECIMEN Ordering Facility: [facility] Address: [address] [place] [address] Performed By: #### 1 9123-9, 2777-1, 98724-5 #### [facility] CLIA [id number] [address] [place] [address] [place] Creatinine [Mass/Vol] 0.69 mg/dL Normal 0.58-0.96 [facility] Comment on above: Order Comment: Leanne terry Type: BLOOD SPECIMEN Ordering Facility: [facility] Address: [address] [place] [address] Performed By: #### 1 9123-9, 27771, 87558-9 #### [facility] CLIA [id number] [address] [place] [address] [place] ESTIMATED GLOMERULAR FILTRATION RATE 107 mL/min/1.73m??? Normal >=60 [facility] Comment on above: Order Comment: Leanne terry Type: BLOOD SPECIMEN Ordering Facility: [facility] Address: [address] [place] [address] Result Comment: Mary mated Glomerular Filtration Rate [...] GFR. Performed By: #### 1 9123-9, 2777-1, 91465-0 #### [facility] CLIA [id number] [place] [address] [place] Glucose [Mass/Vol] 117 mg/dL High 74-99 [facility] Comment on above: Order Comment: Leanne terry Type: BLOOD SPECIMEN Ordering Facility: [facility] Address: [address] [place], [place] [id number] Result Comment: The [place] Diabetes [employer] (ADA) provides guidance for cutoff [...] Standards of Medical Care in Diabetes 2016, [place] [employer]. Diabetes Care. 2016.39(Suppl 1). Performed By: #### 1 9123-9, 2777-, 93974-9 #### [facility] CLIA [id number] [address] [place] [address] [place] Potassium [Moles/Vol] 3.9 mmol/L Normal 3.7-5.1 [facility] Comment on above: Order Comment: Speci men Type: BLOOD SPECIMEN Ordering Facility: [facility] Address: [address] [place] [address] Performed By: #### 1 9123-9, 2777, 05705-1 #### [facility] CLIA [id number] [address] [place] [address] [place] Sodium [Moles/Vol] 137 mmol/L Normal 136-144 [facility] Comment on above: Order Comment: Speci men Type: BLOOD SPECIMEN Ordering Facility: [facility] Address: [address] [id number] Performed By: #### 1 9123-9, 2777, 06859-0 #### [facility] CLIA [id number] [address] [place] [address] [place] Urea nitrogen [Mass/Vol] 13 mg/dL Normal 7-21 [facility] Comment on above: Order Comment: Speci men Type: BLOOD SPECIMEN Ordering Facility: [facility] Address: [address] Performed By: #### 1 9123-9, 2777-1, 86228-6 #### [facility] CLIA [id number] [address] [place] [address] CBC panel Auto (Bld)on 03-30 Erythrocyte distribution width (RBC) [Ratio] 12.8 % Normal 11.5-15.0 [facility] Comment on above: Order Comment: Speci men Type: BLOOD SPECIMEN Ordering Facility: [facility] Address: [address] [place] [address] Performed By: #### 5 8410-2 #### [facility] CLIA [id number] [address] [place] [address] Hematocrit (Bld) [Volume fraction] 35.0 % Low 36.0-46.0 [facility] Comment on above: Order Comment: Speci men Type: BLOOD SPECIMEN Ordering Facility: [facility] Address: [address] [place] [address] Performed By: #### 5 8410-2 #### [facility] CLIA [id number] [address] [place] [address] [place] Hemoglobin (Bld) [Mass/Vol] 11.8 g/dL Normal 11.5-15.5 [facility] Comment on above: Order Comment: Speci men Type: BLOOD SPECIMEN Ordering Facility: [facility] Address: [address] [place] [address] Performed By: #### 5 8410-2 #### [facility] CLIA [id number] [address] [place] [address] MCH (RBC) [Entitic mass] 30.6 pg Normal 26.0-34.0 [facility] Comment on above: Order Comment: Speci men Type: BLOOD SPECIMEN Ordering Facility: [facility] Address: [address] [place] [address] Performed By: #### 5 8410-2 #### [facility] CLIA [id number] [address] [place] [address] [facility] MCHC (RBC) [Mass/Vol] 33.7 g/dL Normal 30.5-36.0 [facility] Comment on above: Order Comment: Speci men Type: BLOOD SPECIMEN Ordering Facility: [facility] Address: [address] [place] [address] Performed By: #### 5 8410-2 #### [facility] CLIA [id number] [address] [place] [address] [place] MCV (RBC) [Entitic vol] 90.7 fL Normal 80.0-100.0 [facility] Comment on above: Order Comment: Speci men Type: BLOOD SPECIMEN Ordering Facility: [facility] Address: [address] [place] [address] Performed By: #### 5 8410-2 #### [facility] CLIA [id number] [address] [place] [address] [place] Nucleated RBC (Bld) [#/Vol] 10*3/uL Normal <0.01 [facility] Comment on above: Order Comment: Speci men Type: BLOOD SPECIMEN Ordering Facility: [facility] Address: [address] [place] [address] Performed By: #### 5 8410-2 #### [facility] CLIA [id number] [address] [place] [address] [place] Platelet mean volume (Bld) [Entitic vol] 8.9 fL Low 9.0-12.7 [facility] Comment on above: Order Comment: Speci men Type: BLOOD SPECIMEN Ordering Facility: [facility] Address: [address] [place] [address] Performed By: #### 5 8410-2 #### [facility] CLIA [id number] [address] [place] [address] [place] Platelets (Bld) [#/Vol] 293 10*3/uL Normal 150-400 [facility] Comment on above: Order Comment: Speci men Type: BLOOD SPECIMEN Ordering Facility: [facility] Address: [address] [place] [address] Performed By: #### 5 8410-2 #### [facility] CLIA [id number] [address] [place] [address] [place] RBC (Bld) [#/Vol] 3.86 10*6/uL Low 3.90-5.20 [facility] Comment on above: Order Comment: Speci men Type: BLOOD SPECIMEN Ordering Facility: [facility] Address: [address] [place] [address] Performed By: #### 5 8410-2 #### [facility] CLIA [id number] [place] WBC (Bld) [#/Vol] 11.25 10*3/uL High 3.70-11.00 [facility] Comment on above: Order Comment: Speci men Type: BLOOD SPECIMEN Ordering Facility: [facility] Address: [address] [place] [address] Performed By: #### 5 8410-2 #### [facility] CLIA [id number] [address] [place] [address] CONSULT PROGon 03-30-2022 CONSULT PROG HNO ID: [id number] Author: Joslyn Jain APRN.ELECTRICAL JOURNEYMAN Service: Pain Management Author Type: Nurse Practitioner [...] eGFR >= (more content not included)... Normal [facility] Magnesium [Mass/Vol] 1.6 mg/dL Low 1.7-2.3 [facility] Comment on above: Order Comment: Speci men Type: BLOOD SPECIMEN Ordering Facility: [facility] Address: [address] [place] [address] Performed By: #### 1 9123-9, 2777-1, 19806-0 #### [facility] CLIA [id number] [address] [place] [address] Phosphate [facility] 03-30 Phosphate [Mass/Vol] 2.9 mg/dL Normal 2.7-4.8 [facility] Comment on above: Order Comment: Speci harrison Type: BLOOD SPECIMEN Ordering Facility: [facility] Address: [address] [place] [address] Performed By: #### 1 9123-9, 2777-1, 09913-9 #### [facility] CLIA [id number] [address] [place] [address] ANES POSTPROC EVALon 022 ANES POSTPROC EVAL HNO ID: [id number] Author: Nathanael Craig DO Service: Anesthesiology Author [...] March 29, 2022 TIME: 8:29 AM CSN: [id number] Normal [facility] Basic metabolic 2000 panelon 03-29-2022 Anion gap [Moles/Vol] 9 mmol/L Normal 9-18 [facility] Comment on above: Order Comment: Leanne terry Type: BLOOD SPECIMEN Ordering Facility: [facility] Address: [address] [address] Performed By: #### 5 8410-2 #### [facility] CLIA [id number] [address] [place] [address] [place] Calcium [Mass/Vol] 7.9 mg/dL Low 8.5-10.2 [facility] Comment on above: Order Comment: Speci men Type: BLOOD SPECIMEN Ordering Facility: [facility] Address: [address] [address] Performed By: #### 5 8410-2 #### [facility] CLIA [id number] [address] [place] [address] [place] Chloride [Moles/Vol] 105 mmol/L Normal 97-105 [facility] Comment on above: Order Comment: Speci men Type: BLOOD SPECIMEN Ordering Facility: [facility] Address: [address] [place] [address] Performed By: #### 5 8410-2 #### [facility] CLIA [id number] [address] [place] [address] [place] CO2 [Moles/Vol] 24 mmol/L Normal 22-30 [facility] Comment on above: Order Comment: Speci men Type: BLOOD SPECIMEN Ordering Facility: [facility] Address: [address] [place] [address] Performed By: #### 5 8410-2 #### [facility] CLIA [id number] [address] [place] [address] [place] Creatinine [Mass/Vol] 0.70 mg/dL Normal 0.58-0.96 [facility] Comment on above: Order Comment: Speci men Type: BLOOD SPECIMEN Ordering Facility: [facility] Address: [address] [place] [address] Performed By: #### 5 8410-2 #### [facility] CLIA [id number] [address] [place] [address] [place] ESTIMATED GLOMERULAR FILTRATION RATE 106 mL/min/1.73m??? Normal >=60 [facility] Comment on above: Order Comment: Speci men Type: BLOOD SPECIMEN Ordering Facility: [facility] Address: [address] [place] [address] Result Comment: Mary mated Glomerular Filtration Rate [...] GFR. Performed By: #### 5 8410-2 #### [facility] CLIA [id number] [place] [address] [place] Glucose [Mass/Vol] 92 mg/dL Normal 74-99 [facility] Comment on above: Order Comment: Speci men Type: BLOOD SPECIMEN Ordering Facility: [facility] Address: [address] [place] [address] Result Comment: The [place] Diabetes Association (ADA) provides guidance for cutoff [...] Standards of Medical Care in Diabetes 2016, [place] [employer]. Diabetes Care. 2016.39(Suppl 1). Performed By: #### 5 8410-2 #### [facility] CLIA [id number] [address] [place] [address] [place] Potassium [Moles/Vol] 4.1 mmol/L Normal 3.7-5.1 [facility] Comment on above: Order Comment: Speci men Type: BLOOD SPECIMEN Ordering Facility: [facility] Address: [address] [place] [address] Performed By: #### 5 8410-2 #### [facility] CLIA [id number] [address] [place] [address] [place] Sodium [Moles/Vol] 138 mmol/L Normal 136-144 [facility] Comment on above: Order Comment: Everettei men Type: BLOOD SPECIMEN Ordering Facility: [facility] Address: [address] [place] [address] Performed By: #### 5 8410-2 #### [facility] CLIA [id number] [address] [place] [address] [place] Urea nitrogen [Mass/Vol] 12 mg/dL Normal 7-21 [facility] Comment on above: Order Comment: Everettei men Type: BLOOD SPECIMEN Ordering Facility: [facility] Address: [address] [place] [address] Performed By: #### 5 8410-2 #### [facility] CLIA [id number] [address] [place] [address] [place] CBC W Auto Differential pane l (Bld)on 03-29-2022 Basophils (Bld) [#/Vol] 0.04 10*3/uL Normal <0.11 [facility] Comment on above: Order Comment: Speci men Type: BLOOD SPECIMEN Ordering Facility: [facility] Address: [address] [place] [address] Performed By: #### 5 7021-8 #### [facility] CLIA [id number] [address] [place] [address] [place] Basophils/100 WBC (Bld) 0.6 % Normal [facility] Comment on above: Order Comment: Speci men Type: BLOOD SPECIMEN Ordering Facility: [facility] Address: [address] [place] [address] Performed By: #### 5 7021-8 #### [facility] CLIA [id number] [address] [place] [address] [place] Differential cell count method Nom (Bld) Auto Normal [facility] Comment on above: Order Comment: Speci men Type: BLOOD SPECIMEN Ordering Facility: [facility] Address: [address] [place] [address] Performed By: #### 5 7021-8 #### [facility] CLIA [id number] [address] [place] [address] [place] Eosinophils (Bld) [#/Vol] 0.16 10*3/uL Normal <0.46 [facility] Comment on above: Order Comment: Speci men Type: BLOOD SPECIMEN Ordering Facility: [facility] Address: [address] [place] [address] Performed By: #### 5 7021-8 #### [facility] CLIA [id number] [address] [place] [address] [place] Eosinophils/100 WBC (Bld) 2.3 % Normal [facility] Comment on above: Order Comment: Speci men Type: BLOOD SPECIMEN Ordering Facility: [facility] Address: [address] [place] [address] Performed By: #### 5 7021-8 #### [facility] CLIA [id number] [address] [place] [address] [place] Erythrocyte distribution width (RBC) [Ratio] 12.8 % Normal 11.5-15.0 [facility] Comment on above: Order Comment: Speci men Type: BLOOD SPECIMEN Ordering Facility: [facility] Address: [address] [place] [address] Performed By: #### 5 7021-8 #### [facility] CLIA [id number] [address] [place] [address] [place] Hematocrit (Bld) [Volume fraction] 32.3 % Low 36.0-46.0 [facility] Comment on above: Order Comment: Speci men Type: BLOOD SPECIMEN Ordering Facility: [facility] Address: [address] [place] [address] Performed By: #### 5 7021-8 #### [facility] CLIA [id number] [address] [place] [address] [place] Hemoglobin (Bld) [Mass/Vol] 10.7 g/dL Low 11.5-15.5 [facility] Comment on above: Order Comment: Speci men Type: BLOOD SPECIMEN Ordering Facility: [facility] Address: [address] [place] [address] Performed By: #### 5 7021-8 #### [facility] CLIA [id number] [address] [place] [address] OF [facility] IMMATURE GRAN % 0.3 % Normal [facility] Comment on above: Order Comment: Speci men Type: BLOOD SPECIMEN Ordering Facility: [facility] Address: [address] [place] [address] Performed By: #### 5 7021-8 #### [facility] CLIA [id number] [address] [place] [address] IMMATURE GRAN ABS <0.03 Normal <0.10 [facility] Comment on above: Order Comment: Speci men Type: BLOOD SPECIMEN Ordering Facility: [facility] Address: [address] [place] [address] Performed By: #### 5 7021-8 #### [facility] CLIA [id number] [address] [place] [address] [place] Lymphocytes (Bld) [#/Vol] 1.39 10*3/uL Normal 1.00-4.00 [facility] Comment on above: Order Comment: Speci men Type: BLOOD SPECIMEN Ordering Facility: [facility] Address: [address] [place] [address] Performed By: #### 5 7021-8 #### [facility] CLIA [id number] [address] [place] [address] [place] Lymphocytes/100 WBC (Bld) 19.7 % Normal [facility] Comment on above: Order Comment: Speci men Type: BLOOD SPECIMEN Ordering Facility: [facility] Address: [address] [place] [address] Performed By: #### 5 7021-8 #### [facility] CLIA [id number] [address] [place] [address] [facility] MCH (RBC) [Entitic mass] 29.8 pg Normal 26.0-34.0 [facility] Comment on above: Order Comment: Speci men Type: BLOOD SPECIMEN Ordering Facility: [facility] Address: [address] [place] [address] Performed By: #### 5 7021-8 #### [facility] CLIA [id number] [address] [place] [address] [place] MCHC (RBC) [Mass/Vol] 33.1 g/dL Normal 30.5-36.0 [facility] Comment on above: Order Comment: Speci men Type: BLOOD SPECIMEN Ordering Facility: [facility] Address: [address] [place] [address] Performed By: #### 5 7021-8 #### [facility] CLIA [id number] [address] [place] [address] [place] MCV (RBC) [Entitic vol] 90.0 fL Normal 80.0-100.0 [facility] Comment on above: Order Comment: Speci men Type: BLOOD SPECIMEN Ordering Facility: [facility] Address: [address] [place] [address] Performed By: #### 5 7021-8 #### [facility] CLIA [id number] [address] [place] [address] [place] Monocytes (Bld) [#/Vol] 0.55 10*3/uL Normal <0.87 [facility] Comment on above: Order Comment: Speci men Type: BLOOD SPECIMEN Ordering Facility: [facility] Address: [address] [place] [address] Performed By: #### 5 7021-8 #### [facility] CLIA [id number] [address] [place] [address] [place] Monocytes/100 WBC (Bld) 7.8 % Normal [facility] Comment on above: Order Comment: Speci men Type: BLOOD SPECIMEN Ordering Facility: [facility] Address: [address] [place] [address] Performed By: #### 5 7021-8 #### [facility] CLIA [id number] [address] [place] [address] [place] Neutrophils (Bld) [#/Vol] 4.88 10*3/uL Normal 1.45-7.50 [facility] Comment on above: Order Comment: Speci men Type: BLOOD SPECIMEN Ordering Facility: [facility] Address: [address] [place] [address] Performed By: #### 5 7021-8 #### [facility] CLIA [id number] [address] [place] [address] [place] Neutrophils/100 WBC (Bld) 69.3 % Normal [facility] Comment on above: Order Comment: Speci men Type: BLOOD SPECIMEN Ordering Facility: [facility] Address: [address] [place] [address] Performed By: #### 5 7021-8 #### [facility] CLIA [id number] [address] [place] [address] [place] Nucleated RBC (Bld) [#/Vol] 10*3/uL Normal <0.01 [facility] Comment on above: Order Comment: Speci men Type: BLOOD SPECIMEN Ordering Facility: [facility] Address: [address] [place] [address] Performed By: #### 5 7021-8 #### [facility] CLIA [id number] [address] [place] [address] [place] Nucleated RBC/100 WBC (Bld) [Ratio] 0.0 /100 WBC Normal [facility] Comment on above: Order Comment: Speci men Type: BLOOD SPECIMEN Ordering Facility: [facility] Address: [address] [place] [address] Performed By: #### 5 7021-8 #### [facility] CLIA [id number] [address] [place] [address] [place] Platelet mean volume (Bld) [Entitic vol] 9.0 fL Normal 9.0-12.7 [facility] Comment on above: Order Comment: Speci men Type: BLOOD SPECIMEN Ordering Facility: [facility] Address: [address] [place] [address] Performed By: #### 5 7021-8 #### [facility] CLIA [id number] [address] [place] [address] [place] Platelets (Bld) [#/Vol] 241 10*3/uL Normal 150-400 [facility] Comment on above: Order Comment: Speci men Type: BLOOD SPECIMEN Ordering Facility: [facility] Address: [address] [place] [address] Performed By: #### 5 7021-8 #### [facility] CLIA [id number] [address] [place] [address] [place] RBC (Bld) [#/Vol] 3.59 10*6/uL Low 3.90-5.20 [facility] Comment on above: Order Comment: Speci men Type: BLOOD SPECIMEN Ordering Facility: [facility] Address: [address] [place] [address] Performed By: #### 5 7021-8 #### [facility] CLIA [id number] [address] [place] [address] [place] WBC (Bld) [#/Vol] 7.04 10*3/uL Normal 3.70-11.00 [facility] Comment on above: Order Comment: Speci men Type: BLOOD SPECIMEN Ordering Facility: [facility] Address: [address] [place] [address] Performed By: #### 5 7021-8 #### [facility] CLIA [id number] [place], [place] [id number] [facility] CONSULT PROGon 03-29-2022 CONSULT PROG HNO ID: [id number] Author: Joslyn Jain APRN.ELECTRICAL JOURNEYMAN Service: Pain Management Author Type: Nurse Practitioner [...] is on liq diet, currently on Dilaudid COMPENSATION CONSULTANT at 0/0.2/10/6 last 2 hours 06/27 bolus [...] No Relieved: Yes - NOW with increase COMPENSATION CONSULTANT and Repositioning and COMPENSATION CONSULTANT Is patient satisfied with pain control: Yes [...] mL PERIPHERAL NERVE CATHETER CONTINUOUS - HYDROmorphone COMPENSATION CONSULTANT 0.5 mg/mL in NaCl 0.9% 100 mL [...] % 69.3 (more content not included)... Normal [facility] Magnesium SerPl-mCncon 03-29 Magnesium [Mass/Vol] 1.4 mg/dL Low 1.7-2.3 [facility] Comment on above: Order Comment: Speci men Type: BLOOD SPECIMEN Ordering Facility: [facility] Address: [facility] [address] [place] [address] Performed By: #### 5 8410-2 #### [facility] CLIA [id number] [address] OF [facility] NURSING PROGon 03-29-2022 NURSING PROG HNO ID: [id number] Author: Dipti Crowley RN Service: Nursing Author Type: Registered Nurse Type: Nursing Progress Note Filed: 03/29/2022 2:00 PM Note Text: Nursing Progress Note Patient Name: Mary Leal Patient Location: / __ Daily Note: Patient VSS. RA POx. Pain level better controlled now that COMPENSATION CONSULTANT initiated. B/L Ropivacaine Tap Blocks with dressings CDI. Magnesium replenished as ordered. 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 Dressing to old ostomy saturated [...] This note was completed by: Dipti Crowley [facility] NURSING PROG HNO ID: [id number] Author: Kev Leone RN Service: ? Author Type: Registered Nurse Type: Nursing Progress Note Filed: 03/29/2022 3:53 AM Note Text: Nursing Progress Note Patient Name: Mary Leal Patient Location: / __ Daily Note: 0350: Pt states she is in 10/10 pain, pt has no PO pain meds ordered, page sent to surgery resident This note was completed by: Kev Leone [facility] PT EDon 03-29-2022 PT ED HNO ID: [id number] Author: Merced Morales DTR Service: Nutrition Therapy Author Type: Milk Route Deliverer Type: Patient Education Filed: 03/29/2022 11:05 AM [...] March 29, 2022 TIME: 11:04 AM PAGER: [facility] Phosphate SerPl-mCncon 03-29 Phosphate [Mass/Vol] 2.9 mg/dL Normal 2.7-4.8 [facility] Comment on above: Order Comment: Speci men Type: BLOOD SPECIMEN Ordering Facility: [facility] Address: [address] [place], [place] [address] Performed By: #### 5 8410-2 #### [facility] CLIA [id number] [address] [place] [address] [place] ANES PRE-OPon 03-28-2022 ANES PRE-OP HNO ID: [id number] Author: Anibal Bertrand MD Service: Anesthesiology Author [...] (FLONASE) 50 mcg/actuation nasal spray Use 1 Gypsum in each nostril on (more content not included)... [facility] BRIEF OP NOTon 03-28-2022 BRIEF OP NOT HNO ID: [id number] Author: Nita Lamas MD Service: Colorectal Author Type: Fellow Type: Brief Op Note Filed: 03/28/2022 3:43 PM Note Text: BRIEF OPERATIVE NOTE - COLORECTAL SURGERY Log ID: [id number] Surgery/Procedure Date: 03/28/2022 Incision/Procedure Start Time: 9:47 AM Incision Close/Procedure End Time: 3:40 PM Surgeon(s) and Home School Teacher(s): Surgeon(s) and Role: * Mary Obrien MD [...] SIGNATURE: Nita Lamas MD PATIENT NAME: Mary Kenny Elvis DATE: March 28, 2022 TIME: 3:42 PM [facility] NURSING PROGon 03-28-2022 NURSING PROG HNO ID: [id number] Author: Merced Lay RN Service: ? Author Type: Registered Nurse Type: Nursing Progress Note Filed: 03/28/2022 6:56 PM Note Text: Nursing Progress Note Patient Name: Mary Leal Patient Location: [place] [address] __ Transfer Note: Patient transferred into room/unit PK3B22 in stable condition. Actions taken: No futher actions taken at this time. Will continue to monitor and check with patient. Paged surgical team. Pt has TAP blocks, but orders were discontinued from PACU. New orders for blocks need to be placed in eMAR. Awaiting call back or orders. This note was completed by: Merced Lay [facility] NURSING PROG HNO ID: [id number] Author: Monica Nicole RN Service: Nursing Author Type: Registered Nurse Type: Nursing Progress Note Filed: 03/28/2022 6:35 PM Note Text: Nursing Progress Note Patient Name: Mary Leal Patient [facility] [place] [facility] __ Daily Note: 1749: Dr. Novak notified of patients increase in heart rate from arrival to post op. Patient HR now maintaining in the 120s. 1830: residential building inspector rounding at patient bedside. Dressing and abdomen assessed- drainage to be expected on island dressing. Notified him of patients HR running high and notified that patient normally takes 50mg atenolol but held today for surgery. Patient's pain managed and other VS stable at this time. residential building inspector is OK with patient going to regular nursing floor at this time. Family updated. This note was completed by: Monica Nicole [facility] NURSING PROG HNO ID: [id number] Author: Vianney Chacon RN Service: Nursing Author [...] (RECOMMENDATION): None Electronically Signed By: Vianney Chacon [facility] OPERATIVE NOon 03-28-2022 OPERATIVE NO HNO ID: [id number] Author: Mary Obrien MD Service: Colorectal Author Type: Physician Type: Operative Report Filed: 03/28/2022 5:06 PM Note Text: COLON AND RECTAL SURGERY OPERATIVE REPORT PATIENT NAME: Mary Leal ADMISSION DATE: 03/28/2022 LOG ID: [id number] SURGERY/PROCEDURE DATE: 03/28/2022 INCISION/PROCEDURE START TIME: 9:47 AM INCISION CLOSE/PROCEDURE END TIME: 3:40 PM AGE: [age] year old SEX: female SURGEON(S)/PROCEDURALI ST(S) AND EXTERMINATOR TERMITE(S): Surgeon(s) and Role: * Mary Obrien MD [...] The abdome (more content not included)... Normal [facility] SURGICAL PATHOLOGYon CASE REPORT [facility] Comment on above: Order Comment: Speci men Type: BLOOD SPECIMEN Ordering Facility: [facility] Address: [address] [place] [address] Result Comment: Surg [facility] Pathology Report Case: [id number] Authorizing Provider: Mary Obrien MD Collected: 03/28/2022 01:43 PM Ordering Location: [facility] Received: 03/28/2022 04:10 PM Operating Room Pathologist: Alexei Rodriguez MD Specimen: COLON RESECTION, terminal ileum with ileostomy Performed By: #### 5 7021-8 #### [facility] CLIA [id number] [place] [address] [place] CLINICAL HISTORY ILEORECTAL ANASTOMOSIS, TAKEDOWN OF ILEOSTOMY Normal [facility] Comment on above: Order Comment: Speci men Type: BLOOD SPECIMEN Ordering Facility: [facility] Address: [address] [place] [id number] Performed By: #### 5 7021-8 #### [facility] CLIA [id number] [address] [place] [address] DIAGNOSIS COMMENT The histologic findings are nonspecific [...] evidence of associated inflammation or infectious organisms. [facility] Comment on above: Order Comment: Speci men Type: BLOOD SPECIMEN Ordering Facility: [facility] Address: [address] [place] [address] Performed By: #### 5 7021-8 #### [facility] CLIA [id number] [address] [place] [address] FINAL DIAGNOSIS [facility] Comment on above: Order Comment: Speci men Type: BLOOD SPECIMEN Ordering Facility: [facility] Address: [address] [address] Result Comment: [place] n and terminal ileum with ileostomy, resection: - Colon with patchy active colitis, submucosal fibrosis, acute serositis, and fibrovascular adhesions (see comment). - Small bowel with focal transmural defect, acute serositis, fibrovascular adhesions, and changes consistent with ileostomy site. - Benign lymph nodes. JEL 03/31/2022 Performed By: #### 5 7021-8 #### [facility] CLIA [id number] [address] [place] [address] FINAL PERFORMING LAB [facility] Comment on above: Order Comment: Speci men Type: BLOOD SPECIMEN Ordering Facility: [facility] Address: [address] [address] Result Comment: Diag nostic interpretation performed at [facility], [address] [place] [address] CLIA# [id number] [employer] Washing: Rajiv Anderson M.D. Performed By: #### 5 7021-8 #### [facility] [id number] STATES OF [facility] GROSS DESCRIPTION Normal [facility] Comment on above: Order Comment: Speci men Type: BLOOD SPECIMEN Ordering Facility: [facility] Address: [facility] [place] [address] Result Comment: A. C OLON RESECTION. Received [...] diverticula. The serosa is jaimes-pink and smooth. Seasonal Rec[employer]iter sections are submitted from distal to proximal [...] AM Gross examination performed at [facility], [address] [place] [address] CLIA # [id number] Performed By: #### 5 7021-8 #### [facility] CLIA [id number] [address] [place] [address] [place] Q - CBC W/DIFF AND PLTon BASOABS 59 cells/uL Normal 0-200 [facility] Comment on above: Order Comment: [facility] performed at: infibond [facility], [address] [place] [address], [address] [place] [address], [phone], [employer]: Gopal Hamilton MD [facility] Collection Date/Time: [id number] [facility] Results Received Date/Time: [facility] Reported Date/Time: Performed By: #### 9 68T, 76590I, %8293, 68947Z, 6399, 496X #### [facility] Default [address] [place] [address] Basophils/100 WBC (Bld) 1.0 % Normal [facility] Comment on above: Order Comment: [facility] performed at: [employer], [employer] [facility], [address] [facility], [address] [place] [address], [phone], [employer] Washing: Gopal Hamilton MD [facility] Date/Time: [id number] [facility] Results Received Date/Time: [facility] Reported Date/Time: Performed By: #### 9 68T, 16690K, %8293, 82742X, 6399, 496X #### [facility] [address] [place] [address] EOSABS 171 cells/uL Normal 15-500 [facility] Comment on above: Order Comment: [facility] performed at: [employer], [employer] [facility], [address] [facility], [address] [place] [address], [address] [place] [address], [employer]: Gopal Hamilton MD [facility] Collection Date/Time: [facility] Results Received Date/Time: [facility] Reported Date/Time: Performed By: #### 9 68T, 20211A, %8293, 97234V, 6399, 496X #### [facility] [address] [place] [address] Eosinophils/100 WBC (Bld) 2.9 % Normal [facility] Comment on above: Order Comment: [facility] performed at: [employer], [employer] [facility], [address] [place] [address], [address] [place] [address], [address] [place] [address], [employer]: Gopal Hamilton MD [facility] Collection Date/Time: [facility] Results Received Date/Time: [facility] Reported Date/Time: Performed By: #### 9 68T, 48718K, %8293, 64457J, 6399, 496X #### [facility] [address] [place] [address] Erythrocyte distribution width (RBC) [Ratio] 12.9 % Normal 11.0-15.0 [facility] Comment on above: Order Comment: [facility] performed at: [employer], [employer] [facility], [address] , [address] [place] [address], [address] [place] [address], [employer]: Gopal Hamilton MD [facility] Collection Date/Time: [facility] Results Received Date/Time: [facility] Reported Date/Time: Performed By: #### 9 68T, 97792T, %8293, 74493N, 6399, 496X #### [facility] [address] [place] [address] Hematocrit (Bld) [Volume fraction] 38.1 % Normal 35.0-45.0 [facility] Comment on above: Order Comment: [facility] performed at: [employer], [employer] [facility], [address] [facility], [address] [place] [address], [address] [place] [address], [employer]: Gopal Hamilton MD [facility] Collection Date/Time: [facility] Results Received Date/Time: [facility] Reported Date/Time: Performed By: #### 9 68T, 96209D, %8293, 26039H, 6399, 496X #### [facility] [address] [place] [address] Hemoglobin (Bld) [Mass/Vol] 12.9 g/dL Normal 11.7-15.5 [facility] Comment on above: Order Comment: [facility] performed at: [employer], [employer] [facility], [address] [place] [address], [address] [place] [address], [address] [place] [address], [employer]: Gopal Hamilton MD [facility] Collection Date/Time: [facility] Results Received Date/Time: [facility] Reported Date/Time: Performed By: #### 9 68T, 36809O, %8293, 84571G, 6399, 496X #### [facility] [address] [place] [address] Lymphocytes (Bld) [#/Vol] 1.375 10*3/uL Normal 850-3900 [facility] Comment on above: Order Comment: [facility] performed at: [employer], [employer] [facility], [address] [place] [address], [address] [place] [address], [address] [place] [address], [employer]: Gopal Hamilton MD [facility] Collection Date/Time: [facility] Results Received Date/Time: [facility] Reported Date/Time: Performed By: #### 9 68T, 55827V, %8293, 25139N, 6399, 496X #### [facility] [address] [place] [address] Lymphocytes/100 WBC (Bld) 23.3 % Normal [facility] Comment on above: Order Comment: [facility] performed at: [employer], [employer] [facility], [address] [place] [address], [address] [place] [address], [address] [place] [address], [employer]: Gopal Hamilton MD [facility] Date/Time: [facility] Results Received Date/Time: [facility] Reported Date/Time: Performed By: #### 9 68T, 92759Y, %8293, 60366Z, 6399, 496X #### [facility] [address] [place] [address] MCH (RBC) [Entitic mass] 30.0 pg Normal 27.0-33.0 [facility] Comment on above: Order Comment: [facility] performed at: [employer], [employer] [facility], [address] [place] [address], [address] [place] [address], [address] [place] [address], [employer]: Gopal Hamilton MD [facility] Collection Date/Time: [facility] Results Received Date/Time: [facility] Reported Date/Time: Performed By: #### 9 68T, 26613V, %8293, 97704W, 6399, 496X #### [facility] [address] [place] [address] MCHC (RBC) [Mass/Vol] 33.9 g/dL Normal 32.0-36.0 [facility] Comment on above: Order Comment: [facility] performed at: [employer], [employer] [facility], [address] [place] [address], [address] [place] [address], [address] [place] [address], [employer]: Gopal Hamilton MD [facility] Collection Date/Time: [facility] Results Received Date/Time: [facility] Reported Date/Time: Performed By: #### 9 68T, 83233Z, %8293, 25299T, 6399, 496X #### [facility] [address] [place] [address] MCV (RBC) [Entitic vol] 88.6 fL Normal 80.0-100.0 [facility] Comment on above: Order Comment: [facility] performed at: [employer], [employer] [facility], [address] [facility], [address] [place] [address], [address] [place] [address], [employer]: Gopal Hamilton MD [facility] Collection Date/Time: [facility] Results Received Date/Time: [facility] Reported Date/Time: Performed By: #### 9 68T, 51644Y, %8293, 90970Z, 6399, 496X #### [facility] [address] [place] [address] MONOABS 460 cells/uL Normal 200-950 [facility] Comment on above: Order Comment: [facility] performed at: [employer] [facility], [address] [facility], [address] [place] [address], [address] [place] [address], [employer] W[employer]: Gopal Hamilton MD [facility] Collection Date/Time: [facility] Results Received Date/Time: [facility] Reported Date/Time: Performed By: #### 9 68T, 78570R, %8293, 23296I, 6399, 496X #### [facility] [address] [place] [address] Monocytes/100 WBC (Bld) 7.8 % Normal [facility] Comment on above: Order Comment: [facility] performed at: [employer] [facility], [address] , [address] [place] [address], [address] [place] [address], [employer]: Gopal Hamilton MD [facility] Collection Date/Time: [id number] [facility] Results Received Date/Time: [facility] Reported Date/Time: Performed By: #### 9 68T, 04580O, %8293, 48266L, 6399, 496X #### [facility] [address] [place] [address] Neutrophils (Bld) [#/Vol] 3.835 10*3/uL Normal 0054-8111 [facility] Comment on above: Order Comment: [facility] performed at: [employer], [employer] [facility], [address] , [address] [place] [address], [address], [employer] Washing: Gopal Hamilton MD [facility] Collection Date/Time: [facility] Results Received Date/Time: [facility] Reported Date/Time: Performed By: #### 9 68T, 73061N, %8293, 34896P, 6399, 496X #### [facility] [address] [place] [address] Neutrophils/100 WBC (Bld) 65 % Normal [facility] Comment on above: Order Comment: [facility] performed at: [employer], [employer] [facility], [address] , [address] [place] [address], [address], [employer] T[employer] Washing: Gopal Hamilton MD [facility] Collection Date/Time: [facility] Results Received Date/Time: [facility] Reported Date/Time: Performed By: #### 9 68T, 88210H, %8293, 11148N, 6399, 496X #### [facility] [address] [place] [address] Platelet mean volume (Bld) [Entitic vol] 9.3 fL Normal 7.5-12.5 [facility] Comment on above: Order Comment: [facility] performed at: [employer], [employer] [facility], [address] , [address] [place] [address], [address], Mill T[employer] Washing: Gopal Hamilton MD [facility] Collection Date/Time: [facility] Results Received Date/Time: [facility] Reported Date/Time: Performed By: #### 9 68T, 62096A, %8293, 57322R, 6399, 496X #### [facility] [address] [place] [address] Platelets (Bld) [#/Vol] 409 10*3/uL High 140-400 [facility] Comment on above: Order Comment: [facility] performed at: [employer], [employer]dog [facility], [address] , [address] [place] [address], [address] [place] [address], Mill T[employer] Washing: Gopal Hamilton MD [facility] Collection Date/Time: [facility] Results Received Date/Time: [facility] Reported Date/Time: Performed By: #### 9 68T, 15852E, %8293, 41860J, 6399, 496X #### [facility] [address] [place] [address] RBC (Bld) [#/Vol] 4.30 10*6/uL Normal 3.80-5.10 [facility] Comment on above: Order Comment: [facility] performed at: [employer], [employer] [facility], [address] , [address] [place] [address], [address] [place] [address], [employer] Washing: Gopal Hamilton MD [facility] Collection Date/Time: [facility] Results Received Date/Time: [facility] Reported Date/Time: Performed By: #### 9 68T, 13209T, %8293, 87886W, 6399, 496X #### [facility] [address] [place] [address] WBC (Bld) [#/Vol] 5.9 10*3/uL Normal 3.8-10.8 [facility] Comment on above: Order Comment: [facility] performed at: [employer], [employer]dog [facility], [address] , [address] [place] [address], [address] [place] [address], [employer] Washing: Gopal Hamilton MD [facility] Collection Date/Time: [facility] Results Received Date/Time: [facility] Reported Date/Time: Performed By: #### 9 68T, 64777W, %8293, 29381D, 6399, 496X #### [facility] [address] [place] [address] Q - COMPREHENSIVE METABOLIC PANEL W/EGFRon 03-10-2022 Albumin [Mass/Vol] 4.3 g/dL Normal 3.6-5.1 [facility] Comment on above: Order Comment: [facility] performed at: [facility], [address] [place] [address], [address] [place] [address], [address] [place] [address], [employer] Washing: Gopal Hamilton MD [facility] Collection Date/Time: [facility] Results Received Date/Time: [facility] Reported Date/Time: Performed By: #### 9 68T, 71389T, %8293, 64068O, 6399, 496X #### [facility] [address] [place] [address] Albumin/Globulin [Mass ratio] 1.7 {ratio} Normal 1.0-2.5 [facility] Comment on above: Order Comment: [facility] performed at: [facility], [address] [place] [address], [address] [place] [address], [address] [place] [address], [employer] Washing: Gopal Hamilton MD [facility] Collection Date/Time: [facility] Results Received Date/Time: [facility] Reported Date/Time: Performed By: #### 9 68T, 65554H, %8293, 18691S, 6399, 496X #### [facility] [address] [place] [address] ALP [Catalytic activity/Vol] 134 U/L High 31-125 [facility] Comment on above: Order Comment: [facility] performed at: inf[facility], [address] [place] [address], [address] [place] [address], [address] [place] [address], [employer] Washing: Gopal Hamilton MD [facility] Collection Date/Time: [facility] Results Received Date/Time: [facility] Reported Date/Time: Performed By: #### 9 68T, 81717N, %8293, 49028N, 6399, 496X #### [facility] [address] [place] [address] ALT [Catalytic activity/Vol] 41 U/L High 6-29 [facility] Comment on above: Order Comment: [facility] performed at: [facility], [employer] Watch[employer] [facility], [address] [place] [address], [address] [place] [address], [address] [place] [address], [employer]ashing: Gopal Hamilton MD [facility] Collection Date/Time: [facility] Results Received Date/Time: [facility] Reported Date/Time: Performed By: #### 9 68T, 10498J, %8293, 72290H, 6399, 496X #### [facility] [address] [place] [address] AST [Catalytic activity/Vol] 33 U/L Normal 10-35 [facility] Comment on above: Order Comment: [facility] performed at: [employer], [employer] Watchdog [facility], [address] [place] [address], [address] [place] [address], [address] [place] [address], [employer] Washing: Gopal Hamilton MD [facility] Collection Date/Time: [facility] Results Received Date/Time: [facility] Reported Date/Time: Performed By: #### 9 68T, 61955F, %8293, 98852H, 6399, 496X #### [facility] [address] [place] [address] BUN/CREA 17 NOT APPLICABLE Normal 6-22 [facility] Comment on above: Order Comment: [facility] performed at: [employer], [employer] [facility], [address] [place] [address], [address] [place] [address], [address] [place] [address], [employer]ashing: Gopal Hamilton MD [facility] Collection Date/Time: [facility] Results Received Date/Time: [facility] Reported Date/Time: Performed By: #### 9 68T, 34912U, %8293, 71313C, 6399, 496X #### [facility] [address] [place] [address] Calcium [Mass/Vol] 9.6 mg/dL Normal 8.6-10.2 [facility] Comment on above: Order Comment: [facility] performed at: [facility], [employer] [facility], [address] [place] [address], [address] [place] [address], [address] [place] [address], [employer] Washing: Gopal Hamilton MD [facility] Date/Time: [facility] Results Received Date/Time: [facility] Reported Date/Time: Performed By: #### 9 68T, 67407B, %8293, 56286Y, 6399, 496X #### [facility] [address] [place] [address] Chloride [Moles/Vol] 103 mmol/L Normal 98-110 [facility] Comment on above: Order Comment: [facility] performed at: [employer], [employer]dog [facility], [address] [place] [address], [address] [place] [address], [address] [place] [address], [employer] Washing: Gopal Hamilton MD [facility] Date/Time: [facility] Results Received Date/Time: [facility] Reported Date/Time: Performed By: #### 9 68T, 84435H, %8293, 39488O, 6399, 496X #### [facility] [address] [place] [address] CO2 [Moles/Vol] 27 mmol/L Normal 20-32 [facility] Comment on above: Order Comment: [facility] performed at: [employer], [employer] Watch[employer] [facility], [address] [place] [address], [address] [place] [address], [address] [place] [address], [employer] Washing: Gopal Hamilton MD [facility] Date/Time: [facility] Results Received Date/Time: [facility] Reported Date/Time: Performed By: #### 9 68T, 32715X, %8293, 64662Q, 6399, 496X #### [facility] [address] [place] [address] Creatinine [Mass/Vol] 0.65 mg/dL Normal 0.50-1.10 [facility] Comment on above: Order Comment: [facility] performed at: [facility], [address] [place] [address], [address] [place] [address], [address] [place] [address], [employer] Washing: Gopal Hamliton MD [facility] Collection Date/Time: [facility] Results Received Date/Time: [facility] Reported Date/Time: Performed By: #### 9 68T, 39347N, %8293, 26725S, 6399, 496X #### [facility] [address] [place] [address] eGFRAA ([facility]) 121 mL/min/1.73m2 Normal > OR = 60 Nor [facility] Comment on above: Order Comment: [facility] performed at: [facility] [facility], [address] [place] [address], [address] [place] [address], [address] [place] [address], [employer] Washing: Gopal Hamilton MD [facility] Date/Time: [facility] Results Received Date/Time: [facility] Reported Date/Time: Performed By: #### 9 68T, 28369Q, %8293, 26974W, 6399, 496X #### [facility] [address] [place] [address] eGFRNAA ([facility]) 104 mL/min/1.73m2 Normal > OR = 60 No [facility]thern [place] [facility] Comment on above: Order Comment: [facility] performed at: inf[facility], [address] [facility], [address] [place] [address], [address] [place] [address], [employer] Washing: Gopal Hamilton MD [facility] Date/Time: [facility] Results Received Date/Time: [facility] Reported Date/Time: Performed By: #### 9 68T, 67386R, %8293, 33872O, 6399, 496X #### [facility] Default [address] [place] [address] Globulin (S) [Mass/Vol] 2.5 g/dL Normal 1.9-3.7 [facility] Booth Cleaner Comment on above: Order Comment: Quest Testing performed at: [employer], ID Watchdog [facility], [address] [place] [address], [address] [place] [address], [address] [place] [address], Mill Tender Washing: Gopal Hamilton MD [facility] Collection Date/Time: [facility] Results Received Date/Time: [facility] Reported Date/Time: Performed By: #### 9 68T, 38438V, %8293, 95134K, 6399, 496X #### [facility] Default [address] [place] [address] Glucose [Mass/Vol] 94 mg/dL Normal 65-99 [facility] Specialist Comment on above: Order Comment: [facility] Testing performed at: [employer] [facility], [address] [place] [address], [address] [place] [address], [address] [place] [address], Mill Tender Washing: Gopal Hamilton MD [facility] Collection Date/Time: [facility] Results Received Date/Time: [facility] Reported Date/Time: Result Comment: Fasting reference interval Performed By: #### 9 68T, 24463C, %8293, 28163S, 6399, 496X #### [facility] Default [address] [place] [address] Potassium [Moles/Vol] 4.4 mmol/L Normal 3.5-5.3 [facility] Booth Cleaner Comment on above: Order Comment: Quest Testing performed at: [employer], [employer] Watchdog [facility], [address] , [address] [place] [address], [address] [place] [address], Mill Tender Washing: Gopal Hamilton MD [facility] Collection Date/Time: [facility] Results Received Date/Time: [facility] Reported Date/Time: Performed By: #### 9 68T, 91303O, %8293, 78929P, 6399, 496X #### [facility] [address] [place] [address] Protein [Mass/Vol] 6.8 g/dL Normal 6.1-8.1 [place] Booth Cleaner Comment on above: Order Comment: [facility] Testing performed at: [employer], [employer] Watchdog [facility], [address] , [address] [place] [address], [address] [place] [address], Mill Tender Washing: Gopal Hamilton MD [facility] Collection Date/Time: [facility] Results Received Date/Time: [facility] Reported Date/Time: Performed By: #### 9 68T, 91669S, %8293, 64955Z, 6399, 496X #### [facility] [address] [place] [address] Sodium [Moles/Vol] 138 mmol/L Normal 135-146 [place] Booth Cleaner Comment on above: Order Comment: [facility] Testing performed at: [employer], [employer] Watchdog [facility], [address] , [address] [place] [address], [address] [place] [address], Mill Tender Washing: Gopal Hamilton MD [facility] Collection Date/Time: [facility] Results Received Date/Time: [facility] Reported Date/Time: Performed By: #### 9 68T, 48432M, %8293, 75729Z, 6399, 496X #### [facility] [address] [place] [address] TBIL <0.3 Normal 0.2-1.2 [facility] Booth Cleaner Comment on above: Order Comment: Quest Testing performed at: [employer], [employer] Watchdog [facility], [address] [facility], [address] [place] [address], [address] [place] [address], Mill Tender Washing: Gopal Hamilton MD Quest Collection Date/Time: [facility] Results Received Date/Time: [facility] Reported Date/Time: Performed By: #### 9 68T, 09403J, %8293, 73738V, 6399, 496X #### [facility] [address] [place] [address] Urea nitrogen [Mass/Vol] 11 mg/dL Normal 7-25 [facility] Booth Cleaner Comment on above: Order Comment: Quest Testing performed at: [employer] [facility], [address] [facility], [address] [place] [address], [address] [place] [address], Mill Tender Washing: Gopal Hamilton MD Quest Collection Date/Time: [facility] Results Received Date/Time: [facility] Reported Date/Time: Performed By: #### 9 68T, 59859U, %8293, 59711A, 6399, 496X #### [facility] [address] [place] [address] Q - DLDL REFLEXon 03-10-2022 Cholesterol in LDL [Mass/Vol] 87 mg/dL Normal <100 [facility] Booth Cleaner Comment on above: Order Comment: [facility] Testing performed at: [employer] [facility], [address] [facility], [address] [place] [address], [address] [place] [address], Mill Tender Washing: Gopal Hamilton MD [facility] Collection Date/Time: [id number] [facility] Results Received Date/Time: [facility] Reported Date/Time: Result Comment: Desirable range <100 mg/dL for primary prevention; <70 mg/dL for patients with CHD or diabetic patients with > or = 2 CHD risk factors. Performed By: #### 9 68T, 77953L, %8293, 15595M, 6399, 496X #### [facility] Default [address] [place] [address] Q - HEMOGLOBIN A1Con HEMOGLOBIN A1c 5.0 % of total Hgb Normal <5.7 No rthern [facility] Comment on above: Order Comment: Quest Testing performed at: [employer] Watchdog [facility], [address] , [address] [place] [address], [address], Mill Tender Washing: Gopal Hamilton MD Quest Collection Date/Time: Quest [...] diagnosis of diabetes in children. According to [place] Diabetes Association (ADA) guidelines, hemoglobin A1c <7.0% represents optimal control in non- diabetic patients. Different metrics may apply to specific patient populations. Standards of Medical Care in Diabetes(ADA). Performed By: #### 9 68T, 70532B, %8293, 17208X, 6399, 496X #### [facility] [address] [place] [address] Q - Lipid Panelon 03-10-2022 Cholesterol [Mass/Vol] 230 mg/dL High <200 [facility] Booth Cleaner Comment on above: Order Comment: [facility] Testing performed at: [employer] Watch[employer] [facility], [address] , [address] [place] [address], [place], [address], Mill Tender Washing: Gopal Hamilton MD [facility] Collection Date/Time: [id number] [facility] Results Received Date/Time: [facility] Reported Date/Time: Performed By: #### 9 68T, 42176E, %8293, 23545C, 6399, 496X #### [facility] Default [address] [place] [address] Cholesterol in HDL [Mass/Vol] 52 mg/dL Normal > OR = 50 [facility] Booth Cleaner Comment on above: Order Comment: [facility] Testing performed at: [employer] Watchdog [facility], [address] [place] [address], [address] [place] [address], [address] [place] [address], Mill Tender Washing: Gopal Hamilton MD [facility] Collection Date/Time: [facility] Results Received Date/Time: Quest Reported Date/Time: Performed By: #### 9 68T, 29891Q, %8293, 24329Z, 6399, 496X #### [facility] [address] [place] [address] Cholesterol.total/Cho lesterol in HDL [Mass ratio] 4.4 {ratio} Normal <5.0 [place] Booth Cleaner Comment on above: Order Comment: [facility] Testing performed at: [employer] Watch[employer] [facility], [address] [place] [address], [address] [place] [address], [address] [place] [address], Mill Tender Washing: Gopal Hamilton MD [facility] Collection Date/Time: [facility] Results Received Date/Time: [facility] Reported Date/Time: Performed By: #### 9 68T, 16717L, %8293, 69451Y, 6399, 496X #### [facility] [address] [place] [address] LDLD SEE NOTE Normal [facility] Booth Cleaner Comment on above: Order Comment: Quest Testing performed at: [employer] [facility], [address] [place] [address], [address] [place] [address], [address] [place] [address], Mill Tender Washing: Gopal Hamilton MD Quest Collection Date/Time: Quest [...] LDL-C. Estevan SS et al. ZANA. 2013;310(19): 1457-1420 (http://education.COTA/faq/BEO977) Performed By: #### 9 68T, 92899G, %8293, 87483K, 6399, 496X #### [facility] Default [address] [place] [address] NON HDL CHOLESTEROL 178 mg/dL (calc) High <130 [facility] Specialist Comment on above: Order Comment: [facility] Testing performed at: [employer] [facility], [address] [place] [address], [address] [place] [address], [address], Mill Tender Washing: Gopal Hamilton MD [facility] Collection Date/Time: [facility] Results Received Date/Time: [facility] Reported Date/Time: Result Comment: For patients with diabetes plus 1 major ASCVD risk factor, treating to a non-HDL-C goal of <100 mg/dL (LDL-C of <70 mg/dL) is considered a therapeutic option. Performed By: #### 9 68T, 83974X, %8293, 23451Z, 6399, 496X #### [facility] Default [address] [place] [address] Triglyceride [Mass/Vol] 410 mg/dL High <150 [facility] Booth Cleaner Comment on above: Order Comment: [facility] Testing performed at: [employer] [facility], [address] [place] [address], [address] [place] [address], [address], Mill Tender Washing: Gopal Hamilton MD [facility] Collection Date/Time: [facility] Results Received Date/Time: [facility] Reported Date/Time: Result Comment: If a non-fasting specimen was collected, consider repeat triglyceride testing on a fasting specimen if clinically indicated. João et al. J. of Clin. Lipidol. 2015;9:129-169. Performed By: #### 9 68T, 18705C, %8293, 29518F, 6399, 496X #### [facility] Default [address] [place] [address] Q - TROPONIN Ion 03-10-2022 TROPONIN I 3 ng/L Normal < OR = 47 [facility] Booth Cleaner Comment on above: Order Comment: [facility] Testing performed at: QPT, [facility], [address], [address] [place], [address], Mill Tender Washing: Gopal Hamilton MD [facility] Collection Date/Time: [id number] [facility] Results Received Date/Time: [facility] Reported Date/Time: Result Comment: In accord with published recommendations, serial testing of troponin I at intervals of 2 to 4 hours for up to 12 to 24 hours is suggested in order to corroborate a single troponin I result. An elevated troponin alone is not sufficient to make the diagnosis of [place]. Performed By: #### 9 68T, 10010G, %8293, 49708E, 6399, 496X #### [facility] Default [address] [place] [address] UA DIP, URINE (POC)on 2021 BILIRUBIN UA (POCT) Negative Negative [facility] CLARITY UA (POCT) Clear [facility] COLOR UA (POCT) Yellow [facility] GLUCOSE UA (POCT) Negative Negative mg/dL [facility] HEMOGLOBIN/BLOOD UA (POCT) Negative Negative [facility] KETONE UA (POCT) Negative Negative mg/dL [facility] LEUKOCYTES UA (POCT) Negative Negative [facility] NITRITE UA (POCT) Negative Negative [facility] PH UA (POCT) 5.0 4.5 - 8.0 [facility] Protein Ql (U) Trace Abnormal Negative mg/dL [facility] SPECIFIC GRAVITY UA (POCT) >=1.030 1.005 - 1.030 [facility] UROBILINOGEN UA (POCT) 0.2 E.U./dL Normal E.U./dL [facility] CNTHERAPYon 01-31-2022 CNTHERAPY OT/PT/Speech Visit (PTLHO) MARY LEAL ([id number]) 1970 F Date Time Provider Department 01/31/22 10:30 AM [facility] Date Time Provider Department Center 01/31/2022 10:30 AM [id number] WOODWARD [facility] Reason for Visit: Physical Therapy [503] Primary [...] (FLONASE) 50 mcg/actuation nasal spray Use 1 Gypsum in each nostril once daily. - carBAMazepine [...] Take 50 mg by mouth once daily. [facility] CNTHERAPYon 01-24-2022 CNTHERAPY OT/PT/Speech Visit (PTLHO) MARY LEAL ([id number]) 1970 F Date Time Provider Department 01/24/22 10:30 AM NEWTON WOODWARD PTLHO Date Time Provider Department [place] 01/24/2022 10:30 AM [id number], JILL [facility] Reason for Visit: Physical Therapy [...] (FLONASE) 50 mcg/actuation nasal spray Use 1 Gypsum in each nostril once daily. - carBAMazepine [...] Take 50 mg by mouth once daily. [facility] CNTHERAPYon 01-18-2022 CNTHERAPY OT/PT/Speech Visit (PTLHO) MARY LEAL ([id number]) 1970 F Date Time Provider Department 01/18/22 12:15 PM JESSI ISAACS PTL Date Time Provider Department [place] 01/18/2022 12:15 PM [id number][facility] for Visit: PT Eval [747] Primary [...] (FLONASE) 50 mcg/actuation nasal spray Use 1 Gypsum in each nostril once daily. - carBAMazepine [...] mg by mouth once daily. [facility] HNO ID: [id number] Author: Sonido Owen MD Service: Colorectal Author Type: Resident Type: Discharge Summary Filed: 12/27/2021 3:55 PM Note Text: Attestation signed by Mary Obrien MD at 12/29/2021 4:11 PM [facility] STAFF PHYSICIAN NOTE OF PERSONAL INVOLVEMENT IN [...] and was transferred to the [facility]. Postoperatively, the patient recovered well. Her [...] mg Finesse (more content not included)... Normal [facility] CONSULTon 12-27-2021 CONSULT HNO ID: [id number] Author: Dai Hines RN Service: Wound/Ostomy Author Type: Registered Nurse Type: Consults Filed: 12/27/2021 3:32 PM Note Text: STOMA CARE POST-OPERATIVE ASSESSMENT AND PATIENT EDUCATION Patient Name: Mary Leal Date: December 27, 2021 Time: 3:20 PM ET Care Outcome: Ms. Leal was seen today on the [facility] for ostomy education and a pouch change lesson. ET's Next Scheduled Visit: Complete. STOMA ASSESSMENT Stoma type: Loop ileostomy Diameter: 35 mm with and extra 1 mm cut on the medial side of the pouch. Location: RLQ Protrusion: Budded, Os points downward Mucosal condition and color: Red and Skyline and moist. Boni: No Mucocutaneous Junction: Intact [...] one piece cut to fit drainable pouch (#09618) and Coloplast Brava moldable ring (2mm) #[id number]. Brava barrier strips, product # [id number] applied around the border of the pouch. [...] Referral Recommendation: Home Health Agency SIGNATURE: Dai HENSON RN COCN CWCN This is an electronically created document. IF PRINTED, PLEASE DO NOT REMOVE FROM THE CHART OR MODIFY PRINTED COPY. [facility] NURSING PROGon 12-27-2021 NURSING PROG HNO ID: [id number] Author: Marizol Hankins RN Service: ? Author Type: Registered Nurse Type: Nursing Progress Note Filed: 12/27/2021 4:39 PM Note Text: Nursing Progress Note Patient Name: Mary Leal [address] [facility] [id number] __ Daily Note: Pt AANDO x 3. 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 Pt on GI [...] This note was completed by: Marizol Hankins [facility] NUTRITIONon 12-27-2021 NUTRITION HNO ID: [id number] Author: Merced Morales DTR Service: Nutrition Therapy Author Type: Milk Route Deliverer Type: Nutrition Filed: 12/27/2021 12:16 PM Note Text: NUTRITION THERAPY GYN PHYSICIAN NOTE SERVICE DATE: 12/27/2021 SERVICE TIME: 10:00 [...] DATE: December 27, 2021 TIME: 12:15 PM [facility] PT EDon 12-27-2021 PT ED HNO ID: [id number] Author: Merced Morales DTR Service: Nutrition Therapy Author Type: Milk Route Deliverer Type: Patient Education Filed: 12/27/2021 12:16 PM [...] 27, 2021 TIME: 12:16 PM PAGER: Normal [facility] Basic Metabolic Panlon 12-26 Anion gap [Moles/Vol] 9 mmol/L Normal 07-24 [facility] Comment on above: Performed By: #### B MP #### [place] [address] Calcium [Mass/Vol] 8.5 mg/dL Normal 8.5-10.5 [facility] Comment on above: Performed By: #### B MP #### [address] Chloride [Moles/Vol] 102 mmol/L Normal 98-110 [facility] Comment on above: Performed By: #### B MP #### [place] [id number] CO2 [Moles/Vol] 28 mmol/L Normal 23-32 [facility] Comment on above: Performed By: #### B MP #### [place] [id number] Creatinine [Mass/Vol] 0.62 mg/dL Low 0.70-1.40 [facility] Comment on above: Performed By: #### B MP #### [place] [id number] eGFR- Amer. >60 Normal >59 [facility] Comment on above: Performed By: #### B MP #### [address] eGFR-All Other Races >60 Normal >59 [facility] Comment on above: Result Comment: eGFR [...] [email or web address]. Performed By: #### B MP #### [place] [address] Glucose [Mass/Vol] 71 mg/dL Normal 65-100 [facility] Comment on above: Performed By: #### B MP #### [place] [address] Potassium [Moles/Vol] 4.0 mmol/L Normal 3.5-5.0 [facility] Comment on above: Performed By: #### B MP #### [place] [address] Sodium [Moles/Vol] 139 mmol/L Normal 132-148 [facility] Comment on above: Performed By: #### B MP #### [place] [address] Urea nitrogen [Mass/Vol] 10 mg/dL Normal 8-25 [facility] Comment on above: Performed By: #### B MP #### [place] [address] NURSING PROGon 12-26-2021 NURSING PROG HNO ID: [id number] Author: Dipti Crowley RN Service: Nursing Author Type: Registered Nurse Type: Nursing Progress Note Filed: 12/26/2021 5:25 PM Note Text: Nursing Progress Note Patient Name: Mary Leal Patient Location: [place] [address] [address] __ Daily Note: Call discontinued as directed in orders. 700cc output from call. 250cc NS instilled and then call catheter removed. Patient assisted to BSC and voided 200cc pink tinged urine. Patient assisted back to bed, not wanting to go to chair. Call light in reach. This note was completed by: Dipti [facility] NURSING PROG HNO ID: [id number] Author: Dipti Crowley, RN Service: Nursing Author Type: Registered Nurse Type: Nursing Progress Note Filed: 12/26/2021 3:51 PM Note Text: Nursing Progress Note Patient Name: Mary Leal Patient Location: [place] [address] __ Daily Note: Patient AANDOx3. VSS. 2L NC POx. IVF infusing as ordered. Dilaudid COMPENSATION CONSULTANT, OXY IR on for pain. Patient drowsy yet easily arousable. Lap sites and transverse incision ELENI with glue. Ileostomy draining liquid brown. Call draining clear yellow. PAS on. No edema. Fa,saman at bed side. Call light in reach. This note was completed by: Dipti [facility] Basic Metabolic Panlon 12-25 Anion gap [Moles/Vol] 9 mmol/L Normal 9-18 [facility] Comment on above: Performed By: #### B MP #### [place] [phone] Calcium [Mass/Vol] 8.5 mg/dL Normal 8.5-10.5 [facility] Comment on above: Performed By: #### B MP #### [facility] [place] [phone] Chloride [Moles/Vol] 104 mmol/L Normal 98-110 [facility] Comment on above: Performed By: #### B MP #### [place] [phone] CO2 [Moles/Vol] 28 mmol/L Normal 23-32 [facility] Comment on above: Performed By: #### B MP #### [place] [phone] Creatinine [Mass/Vol] 0.72 mg/dL Normal 0.70-1.40 [facility] Comment on above: Performed By: #### B MP #### [place] [address] eGFR- Amer. >60 Normal >59 [facility] Comment on above: Performed By: #### B MP #### [place] [phone] eGFR-All Other Races >60 Normal >59 [facility] Comment on above: Result Comment: eGFR [...] [email or web address]. Performed By: #### B MP #### [place] [phone] Glucose [Mass/Vol] 91 mg/dL Normal 65-100 [facility] Comment on above: Performed By: #### B MP #### [place] [address] Potassium [Moles/Vol] 4.0 mmol/L Normal 3.5-5.0 [facility] Comment on above: Performed By: #### B MP #### [place] [address] Sodium [Moles/Vol] 141 mmol/L Normal 132-148 [facility] Comment on above: Performed By: #### B MP #### [facility] [address] [place] [address] Urea nitrogen [Mass/Vol] 12 mg/dL Normal 8-25 [facility] Comment on above: Performed By: #### B MP #### [facility] [address] [place] [address] CASE MGT INIT ASSESon 2021 CASE MGT INIT ASSES HNO ID: [id number] Author: TITO Whitt Service: ? 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 Last discharge within 30 days: No Advance Directive: Current Advance Directive: Health Care Power of Phlebotomy Specialist In Chart: No Health LiteracyHow often do [...] None Has the Patient Been in a Fdc Facility in the Past 30 days?: No [...] Completely I feel financially burdened by my csk-xx-obsxvm expenses for my prescription medication:: 0 - Disagree Completely Risk Score: 0 Patient is categorized as: Low risk < 2 Are you interested in bedside delivery of your medications? Yes Is Patient Psychosocially Complex?: No ASSESSMENT AND PLAN: Medical Needs: Medical Needs: None Psychosocial Needs: Psychosocial Needs: None FREEDOM OF CHOICE EXPLAINED: [place] of Choice Given: Yes Level of Care Discussed: Home Care Financial Disclosure Provided: Yes Financial Disclosure Comments: [facility] Provider List: Home Care Provider list within the patient's requested geographic area shared with the patient/family: Yes within: 15 miles of zip code: [facility] Quality and resource use metrics shared [...] at bedside with pt during assessment. Charo On License Of [facility] [phone]. Home care referrals sent. Daughter to transport at time of discharge. SIGNATURE: TITO Whitt PATIENT NAME: Mary Leal DATE: December 25, 2021 TIME: 11:39 AM PAGER/CONTACT #: [phone] Normal [facility] CBC and Differentialon 12-25 Abs Baso 0.03 k/uL Normal <0.11 [facility] Comment on above: Performed By: #### 5 7021-8 #### [facility] CLIA [id number] [address] [place] [address] [place] Abs R[place] 0.45 k/uL Normal <0.87 [facility] Comment on above: Performed By: #### 5 7021-8 #### [facility] CLIA [id number] [address] [place] [address] [place] Abs Neut 3.85 k/uL Normal 1.45-7.50 [facility] Comment on above: Performed By: #### 5 7021-8 #### [facility] CLIA [id number] [address] [place] [address] [place] Absolute nRBC <0.01 Normal <0.01 [facility] Comment on above: Performed By: #### 5 7021-8 #### [facility] CLIA [id number] [address] [place] [address] [place] Basophils/100 WBC (Bld) 0.5 % Normal [facility] Comment on above: Performed By: #### 5 7021-8 #### [facility] CLIA [id number] [address] [place] [address] [place] DTYPE Auto Diff Normal [facility] Comment on above: Performed By: #### 5 7021-8 #### [facility] CLIA [id number] [address] [place] [address] [place] Eosinophils (Bld) [#/Vol] 0.14 10*3/uL Normal <0.46 [facility] Comment on above: Performed By: #### 5 7021-8 #### [facility] CLIA [id number] [address] [place] [address] [place] Eosinophils/100 WBC (Bld) 2.3 % Normal [facility] Comment on above: Performed By: #### 5 7021-8 #### [facility] CLIA [id number] [address] [place] [address] [facility] Erythrocyte distribution width (RBC) [Ratio] 11.6 % Normal 11.5-15.0 [facility] Comment on above: Performed By: #### 5 7021-8 #### [facility] CLIA [id number] [place] [address] [place] [facility] Hematocrit (Bld) [Volume fraction] 35.2 % Low 36.0-46.0 [facility] Comment on above: Performed By: #### 5 7021-8 #### [facility] CLIA [id number] [place] [address] [place] Hemoglobin (Bld) [Mass/Vol] 11.6 g/dL Normal 11.5-15.5 [facility] Comment on above: Performed By: #### 5 7021-8 #### [facility] CLIA [id number] [address] [place] [address] OF [facility] Lymphocytes (Bld) [#/Vol] 1.47 10*3/uL Normal 1.00-4.00 [facility] Comment on above: Performed By: #### 5 7021-8 #### [facility] CLIA [id number] [address] [place] [address] [facility] Lymphocytes/100 WBC (Bld) 24.7 % Normal [facility] Comment on above: Performed By: #### 5 7021-8 #### [facility] CLIA [id number] [address] [place] [address] [place] MCH 29.5 pG Normal 26.0-34.0 [facility] Comment on above: Performed By: #### 5 7021-8 #### [facility] CLIA [id number] [address] [place] [address] [place] MCHC (RBC) [Mass/Vol] 33.0 g/dL Normal 30.5-36.0 [facility] Comment on above: Performed By: #### 5 7021-8 #### [facility] CLIA [id number] [address] [place] [address] [place] MCV (RBC) [Entitic vol] 89.6 fL Normal 80.0-100.0 [facility] Comment on above: Performed By: #### 5 7021-8 #### [facility] CLIA [id number] [address] [place] [address] [place] Monocytes/100 WBC (Bld) 7.6 % Normal [facility] Comment on above: Performed By: #### 5 7021-8 #### [facility] CLIA [id number] [address] [place] [address] [place] Neutrophils/100 WBC (Bld) 64.9 % Normal [facility] Comment on above: Performed By: #### 5 7021-8 #### [facility] CLIA [id number] [address] [place] [address] [place] NRBCs 0.0 /100 WBC Normal 0 [facility] Comment on above: Performed By: #### 5 7021-8 #### [facility] CLIA [id number] [address] [place] [address] [place] Platelet mean volume (Bld) [Entitic vol] 9.0 fL Normal 9.0-12.7 [facility] Comment on above: Performed By: #### 5 7021-8 #### [facility] CLIA [id number] [address] [place] [address] [place] Platelets (Bld) [#/Vol] 271 10*3/uL Normal 150-400 [facility] Comment on above: Performed By: #### 5 7021-8 #### [facility] CLIA [id number] [address] [place] [address] [place] RBC (Bld) [#/Vol] 3.93 10*6/uL Normal 3.90-5.20 [facility] Comment on above: Performed By: #### 5 7021-8 #### [facility] CLIA [id number] [address] [place] [address] [place] WBC (Bld) [#/Vol] 5.96 10*3/uL Normal 3.70-11.00 [facility] Comment on above: Performed By: #### 5 7021-8 #### [facility] CLIA [id number] [address] [place] [address] [place] CONSULTon 12-25-2021 CONSULT HNO ID: [id number] Author: Tri Kowalski APRN.ELECTRICAL JOURNEYMAN Service: Wound/Ostomy Author Type: Nurse Practitioner Type: Consults Filed: 12/25/2021 11:37 AM Note Text: OSTOMY SERVICE CONSULT MARKET RESEARCH MANAGER SERVICE DATE: 12/25/2021 SERVICE TIME: 1015 Consultation requested by Jenifer Ayala MD for loop ileostomy. Any final recommendations will be communicated back to the requesting provider by way of shared medical record. Surgery: Laparoscopic Suture Rectopexy, Diverting Loop Ileostomy? Date of Surgery: 12/24/2021 Surgeon: Mary Obrien MD Subjective Mary eLal is a 51 year old female is [...] mL 20 mEq INTRAVENOUS PRN - HYDROmorphone COMPENSATION CONSULTANT 0.5 mg/mL in NaCl 0.9% 100 mL [...] discharge with h (more content not included)... [facility] NURSING PROGon 12-25-2021 NURSING PROG HNO ID: [id number] Author: Marilyn Henning, RN Service: ? Author Type: Registered Nurse Type: Nursing Progress Note Filed: 12/25/2021 7:01 PM Note Text: Nursing Progress Note Patient Name: Mary Leal Patient Location: [place] [address]/[address] __ Daily Note: 0930 Pt AANDOx3. Lap sites intact. ABD tender. COMPENSATION CONSULTANT pump running. Stoma beefy red, dark brown liquid output. Pt stated that the eye pressure felt overnite has resolved. Call remains in place until OBGYN sees pt 12/26. Pt requesting PO pain medication. 1100 Pt up to chair. [address] Ontiveros bedside. 5mg oxy ordered q4 PRN. This note was completed by: Marilyn Henning [facility] NURSING PROG HNO ID: [id number] Author: Beto Ford RN Service: ? Author Type: Registered Nurse Type: Nursing Progress Note Filed: 12/25/2021 6:12 AM Note Text: Nursing Progress Note Patient Name: Mary Leal Patient Location: [place] [address]/SY7[address]-88 __ Daily Note: Pt has been complaining of heart burn intermittently during the night. 0544: Pt complaining of worsening eye pain currently 06/15. Feeling flushed, dizzy, blurry vision, are all other s/s. Paged SROC. SROC okay to give oral medications and he will be up to see pt. New VS taken. 0550: SROC at bedside, full exam was given. 0552: Ostomy is now having stool instead of BS. This note was completed by: Beto Ford [facility] ANES POSTPROC EVALon 022 ANES POSTPROC EVAL HNO ID: [id number] Author: Charisse Aggarwal MD Service: Anesthesiology Author Type: Anesthesiologist Type: Anesthesia Postprocedure Evaluation Filed: 12/24/2021 4:17 PM Note Text: POST ANESTHESIA EVALUATION NOTE : 1970 Procedure Summary Date: 12/24/21 Room / Location: [place] [address] / OR Anesthesia Start: 810 Anesthesia Stop: [...] December 24, 2021 TIME: 4:17 PM CSN: [id number] [facility] ANES PRE-OPon 12-24-2021 ANES PRE-OP HNO ID: [id number] Author: Chayito Ojeda MD Service: Anesthesiology Author [...] December 24, 2021 TIME: 7:27 AM CSN: [id number] [facility] BRIEF OP NOTon 12-24-2021 BRIEF OP NOT HNO ID: [id number] Author: Jenifer Ayala MD Service: Colorectal Author Type: Fellow Type: Brief Op Note Filed: 12/24/2021 12:16 PM Note Text: BRIEF OPERATIVE NOTE - COLORECTAL SURGERY Log ID: [id number] Surgery/Procedure Date: 12/24/2021 Incision/Procedure Start Time: 8:50 AM Incision Close/Procedure End Time: Surgeon(s) and Home School Teacher(s): Surgeon(s) and Role: Panel 1: * Mary [...] December 24, 2021 TIME: 12:10 PM Normal [facility] NURSING PROGon 12-24-2021 NURSING PROG HNO ID: [id number] Author: Marilyn Henning RN Service: ? Author Type: Registered Nurse Type: Nursing Progress Note Filed: 12/24/2021 6:36 PM Note Text: Nursing Progress Note Patient Name: Mary Leal Patient Location: [address]/DB9J-14 __ Daily Note: 1816 Pt arrived on floor with 100.2F temperature. Scheduled tylenol administered. Temperature 98.6 at 1816. Surgical incisions ELENI with glue, intact. Ostomy beefy red, producing sweat. Call remains in place. Pt Educated on COMPENSATION CONSULTANT pump usage. Daughter bedside. Bed low and locked. This note was completed by: Marilyn [facility] NURSING PROG HNO ID: [id number] Author: Marilyn Henning RN Service: ? Author Type: Registered Nurse Type: Nursing Progress Note Filed: 12/24/2021 4:19 PM Note Text: Nursing Progress Note Patient Name: Mary Leal Patient Location: [address]/RN0V-47 __ Transfer Note: Patient transferred into room/unit PK3- in stable condition. Actions taken: No futher actions taken at this time. Will continue to monitor and check with patient. This note was completed by: Marilyn [facility] NURSING PROG HNO ID: [id number] Author: Dianelys Lopez RN Service: Nursing Author [...] (RECOMMENDATION): None Electronically Signed By: Dianelys Lopez [facility] OPERATIVE NOon 12-24-2021 OPERATIVE NO HNO ID: [id number] Author: Mary Obrien MD Service: Colorectal Author Type: Physician Type: Operative Report Filed: 12/24/2021 12:34 PM Note Text: COLON AND RECTAL SURGERY OPERATIVE REPORT PATIENT NAME: Mary Leal ADMISSION DATE: 12/24/2021 LOG ID: [id number] SURGERY/PROCEDURE DATE: 12/24/2021 INCISION/PROCEDURE START TIME: 8:50 AM INCISION CLOSE/PROCEDURE END TIME: AGE: [age] year old SEX: female SURGEON(S)/PROCEDURALI ST(S) AND EXTERMINATOR TERMITE(S): Surgeon(s) and Role: Panel 1: * Mary [...] port site. This was ligated with a sidmaz-yo-isrwm Vicryl suture and was confirmed to be [...] above. Mary Obrien, (more content not included)... [facility] OPERATIVE NO HNO ID: [id number] Author: Pam Wang MD Service: Urogynecology Author Type: Physician Type: Operative Report Filed: 12/28/2021 10:03 AM Note Text: OPERATIVE/PROCEDURE REPORT LOG ID: [id number] SURGERY/PROCEDURE DATE: 12/24/2021 INCISION/PROCEDURE START TIME: 8:50 AM INCISION CLOSE/PROCEDURE END TIME: 1:50 PM SURGEON(S)/PROCEDURALI ST(S) AND EXTERMINATOR TERMITE(S): Surgeon(s) and Role: Panel 1: * Mary [...] of the (more content not included)... Normal [facility] Type and SCR (30D)on 022 ABO/RH(D) Positive [facility] Comment on above: Performed By: #### T SCR30 ####[address] [phone] Confirm Blood Typeon 021 ABO/RH(D) Positive [facility] Comment on above: Performed By: #### C ONABO ####[facility] [place] [address] [phone] Type and SCR (30D)on 021 ABO/RH(D) Positive [facility] Comment on above: Performed By: #### T SCR30 ####[address] [phone] Nonvisit Note - PTon 021 Nonvisit Note - PT Chart reviewed with eval prepped for scheduled eval. KK Normal [facility] Consenton 01-08-2021 Consent [id number]#1. 00CD:127 [facility] Coding Summary.on 01-06-2021 Coding Summary. CODING DATE: 01/06/[address] [facility] STATUS: Home (Routine DC) PAYOR: Medicaid [...] Eileen Scott Date Saved: 01/06/2021 09:01 am [facility] Consent for Procedure/Surger yon 01-04-2021 Consent for Procedure/Surgery [id number]#1. 00CD:127 [facility] Consent for Procedure/Surgery [id number]#1. 00CD:127 [facility] Consent for Treatmenton Consent for Treatment [id number]#1.0 0CD:127 [facility] Discharge Instructionson Discharge Instructions [id number]#1. 00CD:127 [facility] Inpatient Patient Summaryon 01-04-2021 Inpatient Patient Summary [place] [id number] Clinical Summary Person Information Name: MARY LEAL Zoya Age: 50 Years : 1970 Sex: Female PCP: KAFTAN DO, G [place] Marital Status: Race: White Ethnicity: Non- or Language: Macedonian Visit Id: Visit Reason: MIXED INCONTINENCE Speciality: Acuity: Enc Type: Outpatient Med Service: Surgery Arrival: 01/04/2021 12:31:00 Discharge: Dispo Type: Address: [address] [place] [address] [phone] Provider Notes: Diagnosis: Problems Active Decreased bladder [...] This Visit Final Med List: acetaminophen-hydrocod one ([place] 5/325 Tab) By Mouth every 6 hours. [...] Follow up: With: Address: When: Clifford OCONNOR [address] [place] [address], [address], [address] [address] Business (1) Within 2 weeks Comments: Call for followup appointment. Have a great day! Patient Education Information: EU - Cystoscopy with Botox Injection Discharge Instructions (Custom) [facility] IntraOperative Documentson 0 01-04-2021 IntraOperative Documents [id number]#1. 00CD:127 Normal [facility] IntraOperative Documents [id number]#1. 00CD:127 [facility] Main OR Intraoperative Recor don 01-04-2021 Main OR Intraoperative Record IntraOp Document Type FTURO Summary Primary Physician: Clifford OCONNOR MD Finalized Date/Time: 01/04/21 13:27:05 Pt. Name: ELVISMARY/Sex: 1970 Female Med Rec #: [id number] Physician: Clifford OCONNOR MD Financial #: [id number] Pt. Type: O Room/Bed: / Admit/Disch: 01/04/21 12:31:00 - Institution: Case Times FTURO Entry 1 Patient Times In Room 01/04/21 13:07:00 Out Room 01/04/21 13:27:00 Procedure Times Start 01/04/21 13:19:00 Stop 01/04/21 13:23:00 Anesthesia Times Last Modified By: Niecy Tran RN 01/04/21 13:27:01 Case Attendance FTURO Entry 1 Entry 2 Entry 3 Case Attendee Clifford OCONNOR MD ADVERTISING COORDINATOR, Akin Mejias CST, Debi Chand Role Performed Surgeon - Primary Scrub - Primary Scrub - Primary Time In 01/04/21 13:07:00 01/04/21 13:07:00 01/04/21 13:07:00 Time Out 01/04/21 13:27:00 01/04/21 13:27:00 01/04/21 13:27:00 Procedure CYSTOSCOPY LOCAL BOTOX CYSTOSCOPY LOCAL BOTOX CYSTOSCOPY LOCAL BOTOX INJECTION(.) INJECTION(.) INJECTION(.) Comments PRECEPTING ORIENTING Last Modified By: Chelsea GAMBINO, Niecy Y ChelseaNiecy pina RN, RN, Kimberly Y 01/04/21 13:27:02 01/04/21 13:27:02 01/04/21 13:27:02 Entry 4 Case Attendee Niecy Tran RN Role Performed Restaurant Supervisor - Primary Time In 01/04/21 13:07:00 Time Out 01/04/21 13:27:00 Procedure CYSTOSCOPY LOCAL BOTOX INJECTION(.) Comments Last Modified By: Niecy Tran RN 01/04/21 13:27:02 Surgical Procedures FTURO Entry 1 Procedure Description Procedure CYSTOSCOPY LOCAL BOTOX Modifiers . INJECTION Surgeon Description CYSTOSCOPY BOTOX 50 UNITS LOT NUMBER [id number] EXP DATE 08/2023 Primary Procedure Yes Primary [...] (If Participants Sha PECK, Akin Jacinto, Applicable) Debi Mejias CST, Barbee RN, Kimberly [...] By: Niecy Tran RN 01/04/21 13:27 Normal [facility] Main OR Preoperative Recordo n 01-04-2021 Main OR Preoperative Record Holding Area Document Type FTURO Summary Primary Physician: Clifford OCONNOR MD Finalized Date/Time: 01/04/21 13:05:55 Pt. Name: MARY LEAL /Sex: 1970 Female Med Rec #: [id number] Physician: Clifford OCONNOR MD Financial #: [id number] Pt. Type: O Room/Bed: / Admit/Disch: 01/04/21 [...] 12:46 Niecy Tran RN 01/04/21 13:05 Normal [facility] Operative Reporton Operative Report Patient: MARY LEAL [...] arranged, F/U in two weeks. . Normal [facility] Comment on above: Result Comment: Elec tronically Signed By: Clifford OCONNOR MD\.br\Date and Time Signed: 01/04/21 13:30 EST Outpatient Surgery Discharge Instructionon 01-04-2021 Outpatient Surgery Discharge Instruction [place] [id number] Patient Discharge Instructions PERSON INFORMATION Name: MARY [...] Follow up: With: Address: When: Clifford [facility]CONNOR [facility] [address], [place] [phone] Business (1) Within 2 weeks Comments: Call [...] Date You may receive a survey from [employer] asking you to rate your care experience. Your feedback is important and will help us understand what we do well and how we can improve the quality of care we provide to you, your loved ones and our community. It?s an honor to serve you. Thank you for choosing [facility] Normal [facility] XR Shoulder - right 3 Viewso n 12-25-2020 IMPRESSION: NO SIGNIFICANT CHANGE Pattern Chain Builder: [employer] Transcribe Date/Time: Dec 25 2020 12:18P Dictated by : AWA LOPEZ MD This examination was interpreted and the report reviewed and electronically signed by: AWA LOPEZ MD on Dec 25 2020 12:21PM [facility] DIVISION OF RADIOLOGY * * *Final Report* [...] significant abnormality. - DIVISION OF RADIOLOGY Provider, Denise Ghosh - 12/25/2020 * * *Final Report* * * DATE OF EXAM: Dec 25 2020 11:36AM LZX 5253 - XR SHLDR >/=3V AP/DUCNAN AP/OTHR RT / PROCEDURE REASON: Post-operative state [...] abnormality. - IMPRESSION IMPRESSION: NO SIGNIFICANT CHANGE Pattern Chain Builder: [facility] Transcribe Date/Time: Dec 25 2020 12:18P Dictated by : AWA LOPEZ MD This examination was interpreted and the report reviewed and electronically signed by: AWA LOPEZ MD on Dec 25 2020 12:21PM EST [facility] Radiology Study observation (narrative) [facility] XR Shoulder - right 3 ViewsO rdered By: Ccf Provider on 12-25-2020 [facility] PT - Assessmentson 1 PT - Assessments [id number]#1. 00CD:127 Normal [facility] Ambulatory Clinical Summaryo n 11-11-2020 Ambulatory Clinical Summary {[id number]-75-04-2r-10-yg-4d- bv-16-28-4t-71-99-b3-c 9-f1}CD:[id number] Normal [facility] Patient Educationon 11-11-19 21 Patient Education Family [...] your urinary (more content not included)... Normal [facility] Urology Phone Visit- Telehealth [...] only communication with the patient located at [facility] [phone] , with no one else. If it [...] Francie BENSON, Dawna Feldman [address] [place] [address]- [phone] Additional Instructions: Patient Education Urodynamic Testing Overactive [...] stream His (more content not included)... Normal [facility] Comment on above: Result Comment: Elec tronically Signed By: Francie BENSON, Dawna Feldman\.br\Date and Time Signed: 11/03/20 11:59 EST\.br\Electronically Co-Signed By: Christy Gill MA\.br\Date and Time Co-Signed: 10/21/20 12:01 EST Coding Summary.on 10-28-2020 Coding Summary. CODING DATE: 10/28/[address] [facility] STATUS: Home (Routine DC) PAYOR: Medicaid [...] Eileen Scott Date Saved: 10/28/2020 11:17 am [facility] Ambulatory Clinical Summaryo n 10-27-2020 Ambulatory Clinical Summary {[id number]- y4-yu-j3-y6-14-44-26-c 6-e5}CD:[id number] [facility] Consent for Procedure/Surger yon 10-27-2020 Consent for Procedure/Surgery [id number] .00CD:127 [facility] Consent for Treatmenton 10-07 Consent for Treatment [id number]#1.0 0CD:127 Normal [facility] IntraOperative Documentson 1 12-28-2019 IntraOperative Documents [id number]#1 .00CD:127 Normal [facility] Patient Educationon 10-21-20 Patient Education Family Medicine [...] or depar (more content not included)... Normal [facility] XR Shoulder - right 3 Viewso n 09-29-2020 IMPRESSION: No acute osseous findings. Pattern Chain Builder: [employer] Transcribe Date/Time: Sep 29 2020 8:37A Dictated by : FLORENCE TORRES MD This examination was interpreted and the report reviewed and electronically signed by: FLORENCE TORRES MD on Sep 29 2020 8:38AM [facility] DIVISION OF RADIOLOGY * * *Final Report* [...] other significant abnormality. DIVISION OF RADIOLOGY Provider, [facility] - 09/29/2020 * * *Final Report* * [...] abnormality. IMPRESSION IMPRESSION: No acute osseous findings. Pattern Chain Builder: [facility] Transcribe Date/Time: Sep 29 2020 8:37A Dictated by : FLORENCE TORRES MD This examination was interpreted and the report reviewed and electronically signed by: FLORENCE TORRES MD on Sep 29 2020 8:38AM EST [facility] Radiology Study observation (narrative) [facility] XR Shoulder - right 3 ViewsO rdered By: Ccf Provider on 09-29-2020 [facility] PT - Assessmentson 0 PT - Assessments [id number]#1. 00CD:127 Normal [facility] Nonvisit Note - PTon 020 Nonvisit Note - PT Per voicemail: she needs to cancel all of her PT due to personal reasons. KK Normal [facility] Provider Letteron 09-09-2020 Provider Letter September 09, 2020 MARY LEAL [address] [place] [address] MARY LEAL 1970 Dear Mary Leal, You [...] [facility] [address], [place] [address] [facility] PT - Assessmentson 0 PT - Assessments [id number]#1. 00CD:127 [facility] PT - Assessments [id number]#1. 00CD:127 [facility] PT - Assessmentson 0 PT - Assessments [id number]#1. 00CD:127 [facility] PT - Consentson 08-31-2020 PT - Consents [id number]#1. 00CD:127 [facility] Pre-Certification Formon Pre-Certification Form [id number]#1.0 0CD:127 [facility] Pre-Certification Form [id number]#1.0 0CD:127 [facility] Consent for Procedure/Surger yon 08-26-2020 Consent for Procedure/Surgery [id number]#1.0 0CD:127 [facility] Ambulatory Clinical Summaryo n 08-25-2020 Ambulatory Clinical Summary {pq-8d-0l-35-46-a5-40- 5r-75-ni-7e-12-07-e1-7 d-}CD:[id number] [facility] Patient Educationon 08-25-20 Patient Education Family [...] an extended amount of time. Only take iuxd-lhp-donospz or prescription medicines for pain, discomfort, or [...] Document Reviewed: 09/07/2009 ExitCare? Patient Information ?2013 [employer]. Normal [facility] Urology Office/Clinic Noteon 08-25-2020 Urology Office/Clinic Note [...] disease: Mother. Hypertension: Mother and Father. Normal [facility] Comment on above: Result Comment: Elec tronically Signed By: Francie BENSON, Dawna Feldman\.br\Date and Time Signed: 08/25/20 10:06 EDT\.br\Electronically Co-Signed By: Mary Hager.br\Date and Time Co-Signed: 08/25/20 09:51 EDT Coding Summary.on 08-21-2020 Coding Summary. CODING DATE: 08/21/2020 [facility] STATUS: PAYOR: Medicaid EA DESCRIPTION 0271 [...] Raymond CphT Date Saved: 08/21/2020 10:42 am [facility] Consenton 08-21-2020 Consent [id number]#1.0 0CD:127 [facility] Ambulatory Clinical Summaryo n 08-19-2020 Ambulatory Clinical Summary {[id number]-og-08-x3-0a-6l-47- 50-59-33-09-0o-j2-d1-c }CD:[id number] [facility] Ambulatory Clinical Summary {50-1v-04-2q-7m-4g-4f- 38-g8-80-93-36-33-b0-0 d-3c}CD:202549 [facility] Nonvisit Note - PTon 020 Nonvisit Note - PT Chart reviewed for scheduled eval. KK [facility] Patient Educationon 08-19-20 20 Patient Education [...] urinary (more content not included)... Normal [facility] Urology [facility]- [facility] 08-19-2020 Urology Phone Visit- Telehealth Chief [...] only communication with the patient located at [address] [place] [phone], with no one else. If it is [...] questions/concerns were discussed. Pt. acknowledges understanding. [place] [facility] [place] Ref[place] Urology Procedure Order 2. Dysuria (R30.0: Dysuria) Moderate. Or[place] [facility] [place] Procedure Order 3. Feeling of incomplete bladder emptying (R39.14: Feeling of incomplete bladder emptying) Pt. does not feel that she is emptying. Ordered[place] [facility] [place] Urology Procedure Order 4. Weak urine stream (R39.12: Poor urinary stream) Weak stream w/ moderate hesitancy. Ordered: [facility] [place] Urology Procedure Order 5. [...] Will order Local anesthesia. ABX sent to Project Manager in [place]. Ordered[place] [facility] [place] Urology Procedure Order 6. [...] Patient who (more content not included)... Normal [facility] Comment on above: Result Comment: Elec tronically Signed By: Francie BENSON, Dawna Feldman\.br\Date and Time Signed: 08/19/20 08:53 EDT\.br\Electronically Co-Signed By: Christy Gill MA\.br\Date and Time Co-Signed: 08/19/20 08:44 EDT Coding Summary.on 08-12-2020 Coding Summary. CODING DATE: 08/12/[address] [facility] STATUS: Home (Routine DC) PAYOR: Medicaid [...] Demi Fried Date Saved: 08/12/2020 09:42 am [facility] Formson 08-11-2020 Forms [id number] [facility] C Urineon 08-09-2020 Bacteria identified Cx Nom (U) Microbiology PROCEDURE: Urine Culture [R1] SOURCE: U Random BODY SITE: COLLECTED DATE/TIME: 08/07/2020 15:46 EDT RECEIVED DATE/TIME: 08/07/2020 17:10 EDT START DATE/TIME: 08/07/2020 17:10 EDT FREE TEXT SOURCE: Dawna Marmolejo MD, MD, Dawna Feldman FINAL REPORTS Final Report [] Verified Date/Time: 08/09/2020 11:56 EDT 500 cfu/ml Mixed skin contaminants Performing Locations R1: This test was performed at: [facility], [address] [place] [address], [id number] , , [facility] Comment on above: Performed By: #### [id number] ####[address] [place] [address] Ambulatory Clinical Summaryo n 08-07-2020 Ambulatory Clinical Summary {[id number] Primitivo Barkley [facility] Patient Educationon 08-07-20 20 Patient Education [...] Document Reviewed: 07/18/2013 ExitCare? Patient Information ?2013 [facility]. [facility] Medicine Overactive Bladder, Adult The bladder [...] bladder, your (more content not included)... Normal [facility] Urology Office/Clinic Noteon 08-07-2020 Urology Office/Clinic Note [...] information and history for this patient from MARKET RESEARCH MANAGER KWESI King There have been no associated [...] setting of nocturia q2hrs and daytime frequency [id number] with painful post void bladder sensation of [...] [address] (more content not included)... Normal [facility] Comment on above: Result Comment: Elec tronically Signed By: Dawna Marmolejo MD\.br\Date and Time Signed: 08/07/20 15:54 EDT\.br\Electronically Co-Signed By: Radha Lopez MA\.br\Date and Time Co-Signed: 08/07/20 15:44 EDT Vital Signs Date Time Vital Sign Value Performing Clinician Facility 09-26-2024 16:19-0500 Body height 162.6 cm Ron King NP Work Phone: [facility] 09-26-2024 16:19-0500 Body mass index (BMI) [Ratio] 26.64 kg/m2 Ron King STEWARD/STEWARDESS NIGHT Work Phone: [facility] 09-26-2024 16:19-0500 Body temperature 97.5 [degF] Ron King NP Work Phone: [facility] 09-26-2024 16:19-0500 Body weight 70.4 kg Ron Benedicty STEWARD/STEWARDESS NIGHT Work Phone: [facility] 09-26-2024 16:19-0500 Diastolic blood pressure 90 mm[Hg] Ron Benedicty STEWARD/STEWARDESS NIGHT Work Phone: [facility] 09-26-2024 16:19-0500 Heart rate 85 /min Ron Benedicty STEWARD/STEWARDESS NIGHT Work Phone: [facility] 09-26-2024 16:19-0500 SaO2% (BldA) [Mass fraction] 99 % Ron Benedicty STEWARD/STEWARDESS NIGHT Work Phone: [facility] 09-26-2024 16:19-0500 Systolic blood pressure 142 mm[Hg] Ron Benedicty STEWARD/STEWARDESS NIGHT Work Phone: [facility] 09-16-2024 14:56-0500 Body height 162.56 cm [facility] 09-16-2024 14:56-0500 Body mass index (BMI) [Ratio] 25.5 kg/m2 [facility] 09-16-2024 14:56-0500 Body weight 67.58 kg [facility] 09-04-2024 14:30-0400 Body height 162.6 cm Ron Benedicty STEWARD/STEWARDESS NIGHT Work Phone: [facility] 09-04-2024 14:30-0400 Body mass index (BMI) [Ratio] 25.58 kg/m2 Ron Benedicty STEWARD/STEWARDESS NIGHT Work Phone: [facility] 09-04-2024 14:30-0400 Body temperature 97.5 [degF] Ron Benedicty STEWARD/STEWARDESS NIGHT Work Phone: [facility] 09-04-2024 14:30-0400 Body weight 67.59 kg Ronpadmaja Benedicty STEWARD/STEWARDESS NIGHT Work Phone: [facility] 09-04-2024 14:30-0400 Diastolic blood pressure 76 mm[Hg] Ron Benedicty STEWARD/STEWARDESS NIGHT Work Phone: [facility] 09-04-2024 14:30-0400 Heart rate 55 /min Ron Jaky STEWARD/STEWARDESS NIGHT Work Phone: [facility] 09-04-2024 14:30-0400 SaO2% (BldA) [Mass fraction] 99 % Ron Fernando STEWARD/STEWARDESS NIGHT Work Phone: [facility] 09-04-2024 14:30-0400 Systolic blood pressure 110 mm[Hg] Ron Fernando STEWARD/STEWARDESS NIGHT Work Phone: [facility] 08-07-2024 09:12-0400 Body height 162.6 cm Radha Cardenas MD Work Phone: [facility] 08-07-2024 09:12-0400 Body mass index (BMI) [Ratio] 26.43 kg/m2 Radha Cardenas MD Work Phone: [phone] [place] [address] 08-07-2024 09:12-0400 Body temperature 97.3 [degF] Radha Cardenas MD Work Phone: [phone] [place] [address] 08-07-2024 09:12-0400 Body weight 69.85 kg Radha Cardenas MD Work Phone: [phone])[phone] [address] 08-07-2024 09:12-0400 Diastolic blood pressure 82 mm[Hg] Radha Cardenas MD Work Phone: [facility] 08-07-2024 09:12-0400 Heart rate 68 /min Radha Cardenas MD Work Phone: [facility] 08-07-2024 09:12-0400 SaO2% (BldA) [Mass fraction] 100 % Radha Cardenas MD Work Phone: [facility] 08-07-2024 09:12-0400 Systolic blood pressure 120 mm[Hg] Radha Cardenas MD Work Phone: [facility] 04-12-2024 13:10-0400 Diastolic blood pressure 75 mm[Hg] Milagros Franco MD, PhD Work Phone: [facility] 04-12-2024 13:10-0400 Heart rate 62 /min Milagros Franco MD, PhD Work Phone: [facility] 04-12-2024 13:10-0400 Respiratory rate 20 /min Milagros Franco MD, PhD Work Phone: [facility] 04-12-2024 13:10-0400 SaO2% (BldA) [Mass fraction] 100 % Milagros Franco MD, PhD Work Phone: [facility] 04-12-2024 13:10-0400 Systolic blood pressure 121 mm[Hg] Milagros Franco MD, PhD Work Phone: [facility] 04-12-2024 11:35-0400 Body height 162.6 cm Milagros Franco MD, PhD Work Phone: [facility] 04-12-2024 11:35-0400 Body mass index (BMI) [Ratio] 25.75 kg/m2 Milagros Franco MD, PhD Work Phone: [facility] 04-12-2024 11:35-0400 Body temperature 97.9 [degF] Milagros Franco MD, PhD Work Phone: [facility] 04-12-2024 11:35-0400 Body weight 68.04 kg Milagros Franco MD, PhD Work Phone: [facility] 02-27-2024 09:48-0400 Body height 162.6 cm Flower Lopez MARKET RESEARCH MANAGER.ELECTRICAL JOURNEYMAN Work Phone: [facility] 02-27-2024 09:48-0400 Body mass index (BMI) [Ratio] 26.45 kg/m2 Flower Lopez MARKET RESEARCH MANAGER.ELECTRICAL JOURNEYMAN Work Phone: [facility] 02-27-2024 09:48-0400 Body weight 69.9 kg Flower Jessica MARKET RESEARCH MANAGER.ELECTRICAL JOURNEYMAN Work Phone: [facility] 02-27-2024 09:48-0400 Diastolic blood pressure 93 mm[Hg] Flower Jessica MARKET RESEARCH MANAGER.ELECTRICAL JOURNEYMAN Work Phone: [facility] 02-27-2024 09:48-0400 Heart rate 62 /min Flower Jessica MARKET RESEARCH MANAGER.ELECTRICAL JOURNEYMAN Work Phone: [facility] 02-27-2024 09:48-0400 Systolic blood pressure 146 mm[Hg] Flower Jessica MARKET RESEARCH MANAGER.ELECTRICAL JOURNEYMAN Work Phone: [facility] 01-25-2024 09:05-0400 Body height 162.6 cm [employer] Work Phone: [facility] 01-25-2024 09:05-0400 Body weight 68.04 kg [employer] Work Phone: [facility] 01-25-2024 09:05-0400 Heart rate 84 /min [employer] Work Phone: [facility] 01-25-2024 09:05-0400 Respiratory rate 16 /min [employer] Work Phone: [facility] 01-10-2024 12:40-0500 Body height 162.6 cm Cullen Dawkins MD Work Phone: [facility] 01-10-2024 12:40-0500 Body mass index (BMI) [Ratio] 27.89 kg/m2 Cullen Dawkins MD Work Phone: [facility] 01-10-2024 12:40-0500 Body weight 73.7 kg Cullen Dawkins MD Work Phone: [facility] 12-20-2023 12:21-0500 Body height 162.6 cm [facility] [employer] [facility] 12-20-2023 12:21-0500 Body mass index (BMI) [Ratio] 28.38 kg/m2 [facility] [employer] [facility] 12-20-2023 12:21-0500 Body temperature 98.2 [degF] [facility] [address] [facility] 12-20-2023 12:21-0500 Body weight 75 kg [facility] 12-20-2023 12:21-0500 Diastolic blood pressure 90 mm[Hg] [facility] 12-20-2023 12:21-0500 Heart rate 72 /min [facility] 12-20-2023 12:21-0500 Respiratory rate 18 /min [facility] [address] [facility] 12-20-2023 12:21-0500 SaO2% (BldA) [Mass fraction] 96 % [facility] 12-20-2023 12:21-0500 Systolic blood pressure 138 mm[Hg] [facility] 11-23-2023 08:14-0500 Body height 162.56 cm DO Shanonn Gómez Work Phone: [facility] 11-23-2023 08:14-0500 Body weight 70.3 kg DO Shannon Gómez Work Phone: [facility] 08-12-2023 07:08-0400 Diastolic blood pressure 65 mm[Hg] Lex Salmon MD Work Phone: [facility] 08-12-2023 07:08-0400 Heart rate 77 /min Lex Salmon MD Work Phone: [facility] 08-12-2023 07:08-0400 SaO2% (BldA) [Mass fraction] 98 % Lex Salmon MD Work Phone: [facility] 08-12-2023 07:08-0400 Systolic blood pressure 132 mm[Hg] Lex Salmon MD Work Phone: [facility] 08-12-2023 06:48-0400 Respiratory rate 13 /min Lex Salmon MD Work Phone: [facility] 08-12-2023 00:25-0400 Body height 162.6 cm Lex Salmon MD Work Phone: [facility] 08-12-2023 00:25-0400 Body mass index (BMI) [Ratio] 28.01 kg/m2 Lex Salmon MD Work Phone: [facility] 08-12-2023 00:25-0400 Body temperature 97.59 [degF] Lex Salmon MD Work Phone: [facility] 08-12-2023 00:25-0400 Body weight 74.03 kg Lex Salmon MD Work Phone: [facility] 07-31-2023 14:27-0400 Body height 162.6 cm Nelsy Chávez MARKET RESEARCH MANAGER.ELECTRICAL JOURNEYMAN Work Phone: [facility] 07-31-2023 14:27-0400 Body weight 69.85 kg Nelsy Chávez MARKET RESEARCH MANAGER.ELECTRICAL JOURNEYMAN Work Phone: [facility] 07-31-2023 14:27-0400 Diastolic blood pressure 96 mm[Hg] Nelsy Philipped MARKET RESEARCH MANAGER.ELECTRICAL JOURNEYMAN Work Phone: [facility] 07-31-2023 14:27-0400 Heart rate 76 /min Nelsy Philipped MARKET RESEARCH MANAGER.ELECTRICAL JOURNEYMAN Work Phone: [facility] 07-31-2023 14:27-0400 Systolic blood pressure 136 mm[Hg] Nelsy Philipped MARKET RESEARCH MANAGER.ELECTRICAL JOURNEYMAN Work Phone: [facility] 06-13-2023 10:37-0400 Body height 162.56 cm Eliceo Gómez Work Phone: [facility] [address] DO Work Phone: 06-13-2023 10:37-0400 Body mass index (BMI) [Ratio] 27.46 kg/m2 Eliceo Gómez Work Phone: [facility] DO Work Phone: 06-13-2023 10:37-0400 Body surface area Derived from formula 1.78 m2 Eliceo Gómez Work Phone: [facility] DO Work Phone: 06-13-2023 10:37-0400 Body weight 72.58 kg Eliceo Gómez Work Phone: [facility] DO Work Phone: 06-13-2023 10:37-0400 Diastolic blood pressure 70 mm[Hg] Eliceo Gómez Work Phone: [facility] DO Work Phone: 06-13-2023 10:37-0400 Heart rate 70 /min Eliceo Gómez Work Phone: [facility] DO Work Phone: 06-13-2023 10:37-0400 Systolic blood pressure 100 mm[Hg] Eliceo Gómez Work Phone: [facility] DO Work Phone: 06-13-2023 10:37-0400 11 1 Eliceo Gómez Work Phone: [facility] DO Work Phone: Comment on above: PHQ-9 TS 06-05-2023 13:23-0400 Diastolic blood pressure 68 mm[Hg] DO Shannon Gómez Work Phone: [facility] 06-05-2023 13:23-0400 Heart rate 72 /min DO IsatuReno Szymanskijerometomasa Work Phone: [facility] 06-05-2023 13:23-0400 Respiratory rate 18 /min DO Shannon Szymanskijerometomasa Work Phone: [facility] 06-05-2023 13:23-0400 SaO2% (BldA) [Mass fraction] 97 % DO IsatuReno Szymanskijerometomasa Work Phone: [facility] 06-05-2023 13:23-0400 Systolic blood pressure 129 mm[Hg] DO IsatuReno Parish Stephonleigha Work Phone: [facility] 06-05-2023 09:32-0400 Body height 162.56 cm DO Shannon Gómez Work Phone: [facility] 06-05-2023 09:32-0400 Body weight 73.9 kg DO Shannon Gómez Work Phone: [facility] 06-05-2023 09:31-0400 Body temperature 97.5 [degF] DO Shannon Gómez Work Phone: [facility] 01-16-2023 13:18-0400 Body height 162.[address] [facility] 01-16-2023 13:18-0400 Body weight 68.04 [facility] 11-21-2022 08:00-0500 Body height 162.[address] [facility] 2 Work Phone: [facility] 11-21-2022 08:00-0500 Body weight 64.[address] [facility] 2 Work Phone: [facility] 10-11-2022 10:08-0500 Body height 162.6 cm Isra Masters DO Work Phone: [facility] 10-11-2022 10:08-0500 Body weight 78.02 kg Isra Masters DO Work Phone: [facility] 10-11-2022 10:08-0500 Diastolic blood pressure 97 mm[Hg] Isra Masters DO Work Phone: [facility] 10-11-2022 10:08-0500 Heart rate 89 /min Isra Masters DO Work Phone: [facility] 10-11-2022 10:08-0500 Systolic blood pressure 141 mm[Hg] Isra Masters DO Work Phone: [facility] 10-10-2022 14:30-0500 Body height 162.56 cm Beto Cartagena Other [employer] Other 10-10-2022 14:30-0500 Body mass index (BMI) [Ratio] 28.66 kg/m2 Beto Olexa Other [employer] Other 10-10-2022 14:30-0500 Body weight 75.75 kg Beto Mitzi Other [employer] Other 07-26-2022 11:13-0400 Body height 162.6 cm Mary Obrien MD Work Phone: [facility] 07-26-2022 11:13-0400 Body temperature 97.5 [degF] Mary Obrien MD Work Phone: [facility] 07-26-2022 11:13-0400 Body weight 77.56 kg Mary Obrien MD Work Phone: [facility] 07-26-2022 11:13-0400 Diastolic blood pressure 83 mm[Hg] Mary Obrien MD Work Phone: [facility] 07-26-2022 11:13-0400 Heart rate 95 /min Mary Obrien MD Work Phone: [facility] 07-26-2022 11:13-0400 SaO2% (BldA) [Mass fraction] 97 % Mary Obrien MD Work Phone: [facility] 07-26-2022 11:13-0400 Systolic blood pressure 110 mm[Hg] Mary Obrien MD Work Phone: [facility] 05-26-2022 11:45-0400 Body height 162.56 cm Beto Snyder Other [employer] Other 05-26-2022 11:45-0400 Body mass index (BMI) [Ratio] 29.18 kg/m2 Beto Snyder Other [employer] Other 05-26-2022 11:45-0400 Body weight 77.11 kg Beto Snyder Other [employer] Other 05-12-2022 09:06-0400 Diastolic blood pressure 80 mm[Hg] Eliceo Gómez Work Phone: [facility] DO Work Phone: 05-12-2022 09:06-0400 Systolic blood pressure 126 mm[Hg] Eliceo Gómez Work Phone: [facility] DO Work Phone: 05-12-2022 08:57-0400 Body height 162.56 cm Eliceo Gómez Work Phone: [facility] DO Work Phone: 05-12-2022 08:57-0400 Body mass index (BMI) [Ratio] 29.87 kg/m2 Eliceo Szymanskijerometomasa Work Phone: [facility] [address] DO Work Phone: 05-12-2022 08:57-0400 Body surface area Derived from formula 1.84 m2 Eliceo Gómez Work Phone: [facility] [address] DO Work Phone: 05-12-2022 08:57-0400 Body weight 78.93 kg Eliceo Gómez Work Phone: [facility] DO Work Phone: 05-12-2022 08:57-0400 Diastolic blood pressure 80 mm[Hg] Eliceo Gómez Work Phone: [facility] [address] DO Work Phone: 05-12-2022 08:57-0400 Heart rate 68 /min Eliceo Asiya Szymanskileigha Work Phone: [facility] [address] DO Work Phone: 05-12-2022 08:57-0400 Systolic blood pressure 130 mm[Hg] Eliceo Gómez Work Phone: [facility] DO Work Phone: 05-10-2022 12:30-0400 Body height 162.56 cm Allison Arita Other [employer] Other 05-10-2022 12:30-0400 Body mass index (BMI) [Ratio] 29.18 kg/m2 Allison Arita Other [employer] Other 05-10-2022 12:30-0400 Body temperature 97.3 [degF] Allison Arita Other [employer] Other 05-10-2022 12:30-0400 Body weight 77.11 kg Allison Arita Other [employer] Other 05-10-2022 12:30-0400 Respiratory rate 18 /min Allison Arita Other [employer] Other 05-10-2022 12:30-0400 SaO2% (BldA) [Mass fraction] 98 % Allison Arita Other [employer] Other 04-22-2022 12:04-0400 Body height 162.6 cm Jessi Sheets APRN.ELECTRICAL JOURNEYMAN Work Phone: [facility] 04-22-2022 12:04-0400 Body weight 77.56 kg Jessi Sheets APRN.ELECTRICAL JOURNEYMAN Work Phone: [facility] 04-22-2022 12:04-0400 Diastolic blood pressure 68 mm[Hg] Jessi Sheets APRN.ELECTRICAL JOURNEYMAN Work Phone: [facility] 04-22-2022 12:04-0400 Heart rate 76 /min Jessi Sheets APRN.ELECTRICAL JOURNEYMAN Work Phone: [facility] 04-22-2022 12:04-0400 SaO2% (BldA) [Mass fraction] 98 % Jessi Sheets APRN.ELECTRICAL JOURNEYMAN Work Phone: [facility] 04-22-2022 12:04-0400 Systolic blood pressure 104 mm[Hg] Jessi Sheets APRN.ELECTRICAL JOURNEYMAN Work Phone: [facility] 03-15-2022 16:30-0400 Body height 162.56 cm Beto Pradeeptonia Other [employer] Other 03-15-2022 16:30-0400 Body mass index (BMI) [Ratio] 30.55 kg/m2 Beto Snyder Other [employer] Other 03-15-2022 16:30-0400 Body weight 80.74 kg Beto Fernándeztonia Other [employer] Other 03-15-2022 08:36-0400 Body height 162.6 cm Isra Masters DO Work Phone: [facility] 03-15-2022 08:36-0400 Body weight 83.01 kg Isra Masters DO Work Phone: [facility] 03-15-2022 08:36-0400 Diastolic blood pressure 87 mm[Hg] Isra Masters DO Work Phone: [facility] 03-15-2022 08:36-0400 Heart rate 85 /min Isra Masters DO Work Phone: [facility] 03-15-2022 08:36-0400 SaO2% (BldA) [Mass fraction] 100 % Isra Masters DO Work Phone: [facility] 03-15-2022 08:36-0400 Systolic blood pressure 133 mm[Hg] Isra Masters DO Work Phone: [facility] 03-14-2022 10:23-0400 Body height 162.6 cm Pacc 4 Work Phone: [facility] 03-14-2022 10:23-0400 Body temperature 97.2 [degF] Pacc 4 Work Phone: [facility] 03-14-2022 10:23-0400 Body weight 83.01 kg Pacc 4 Work Phone: [facility] 03-14-2022 10:23-0400 Diastolic blood pressure 76 mm[Hg] Pacc 4 Work Phone: [facility] 03-14-2022 10:23-0400 Heart rate 74 /min Pacc 4 Work Phone: [facility] 03-14-2022 10:23-0400 Respiratory rate 16 /min Pacc 4 Work Phone: [facility] 03-14-2022 10:23-0400 SaO2% (BldA) [Mass fraction] 98 % Pacc 4 Work Phone: [facility] 03-14-2022 10:23-0400 Systolic blood pressure 114 mm[Hg] Pacc 4 Work Phone: [facility] 02-18-2022 09:43-0400 Body height 162.6 cm Nelsy Chávez MARKET RESEARCH MANAGER.ELECTRICAL JOURNEYMAN Work Phone: [facility] 02-18-2022 09:43-0400 Body weight 80.29 kg Nelsy Chávez MARKET RESEARCH MANAGER.ELECTRICAL JOURNEYMAN Work Phone: [facility] 02-18-2022 09:43-0400 Diastolic blood pressure 70 mm[Hg] Nelsy Chávez MARKET RESEARCH MANAGER.ELECTRICAL JOURNEYMAN Work Phone: [facility] 02-18-2022 09:43-0400 Systolic blood pressure 110 mm[Hg] Nelsy Chávez MARKET RESEARCH MANAGER.ELECTRICAL JOURNEYMAN Work Phone: [facility] 02-08-2022 14:52-0400 Body height 162.6 cm Mary Obrien MD Work Phone: [facility] 02-08-2022 14:52-0400 Body weight 83.01 kg Mary Obrien MD Work Phone: [facility] 02-08-2022 14:52-0400 Diastolic blood pressure 76 mm[Hg] Mary Obrien MD Work Phone: [facility] 02-08-2022 14:52-0400 Heart rate 79 /min Mary Obrien MD Work Phone: [facility] 02-08-2022 14:52-0400 SaO2% (BldA) [Mass fraction] 97 % Mary Obrien MD Work Phone: [facility] 02-08-2022 14:52-0400 Systolic blood pressure 113 mm[Hg] Mary Obrien MD Work Phone: [facility] 02-08-2022 11:19-0400 Body weight 83.01 kg Magali Mitchell MARKET RESEARCH MANAGER.ELECTRICAL JOURNEYMAN Work Phone: [facility] 02-08-2022 11:19-0400 Diastolic blood pressure 76 mm[Hg] Magali Mitchell MARKET RESEARCH MANAGER.ELECTRICAL JOURNEYMAN Work Phone: [facility] 02-08-2022 11:19-0400 Heart rate 74 /min Magali Mitchell MARKET RESEARCH MANAGER.ELECTRICAL JOURNEYMAN Work Phone: [facility] 02-08-2022 11:19-0400 Systolic blood pressure 113 mm[Hg] Magali Mitchell MARKET RESEARCH MANAGER.ELECTRICAL JOURNEYMAN Work Phone: [facility] 10-20-2021 09:45-0500 Body height 162.56 cm Beto Snyder Other [employer] Other 10-20-2021 09:45-0500 Body mass index (BMI) [Ratio] 31.41 kg/m2 Beto Snyder Other [employer] Other 10-20-2021 09:45-0500 Body weight 83.01 kg Beto Snyder Other [employer] Other 08-19-2021 17:10-0400 Body height 162.56 cm Erica Kingston Other [employer] Other 08-19-2021 17:10-0400 Body mass index (BMI) [Ratio] 31.24 kg/m2 Erica Vashti Other [employer] Other 08-19-2021 17:10-0400 Body temperature 97.3 [degF] Erica Vashti Other [employer] Other 08-19-2021 17:10-0400 Body weight 82.56 kg Erica Kumarmond Other [employer] Other 08-19-2021 17:10-0400 Diastolic blood pressure 82 mm[Hg] Erica Kumarmond Other [employer] Other 08-19-2021 17:10-0400 Respiratory rate 18 /min Erica Kumarmond Other [employer] Other 08-19-2021 17:10-0400 SaO2% (BldA) [Mass fraction] 98 % Erica Kingston Other [employer] Other 08-19-2021 17:10-0400 Systolic blood pressure 126 mm[Hg] Erica Vashti Other [employer] Other 08-13-2021 10:15-0400 Body height 162.56 cm Tita Ginty Other [employer] Other 08-13-2021 10:15-0400 Body mass index (BMI) [Ratio] 30.89 kg/m2 Tita Ginty Other [employer] Other 08-13-2021 10:15-0400 Body temperature 6 [degF] Tita Ginty Other [employer] Other 08-13-2021 10:15-0400 Body weight 81.65 kg Tita Daugherty Other [employer] Other 08-13-2021 10:15-0400 SaO2% (BldA) [Mass fraction] 99 % Tita Dat Other [employer] Other 07-28-2021 09:30-0400 Body height 162.56 cm Beto Snyder Other [employer] Other 07-28-2021 09:30-0400 Body mass index (BMI) [Ratio] 30.89 kg/m2 Beto Snyder Other [employer] Other 07-28-2021 09:30-0400 Body weight 81.65 kg Beto Snyder Other [employer] Other Encounters Encounter Date Encounter Type Care Provider Facility Start: 09-27-2024 End: 09-27-2024 Office outpatient visit 15 minutes Dipti Acevedo DO Work Phone: [facility] Comment on above: PCB (post coital ble eding) (Primary Dx); Granulation tissue Start: 09-27-2024 End: 09-27-2024 ambulatory DIPTI ACEVEDO Not Available Start: 09-26-2024 End: 09-26-2024 Office outpatient visit 15 minutes Ron King STEWARD/STEWARDESS NIGHT Work Phone: [phone] Comment on above: Degenerative disc di sease, cervical (Primary Dx) Start: 09-26-2024 End: 09-27-2024 ambulatory RON KING Not Available Start: 09-24-2024 End: 09-24-2024 Office outpatient visit 15 minutes Dipti Acevedo DO Work Phone: [facility] Comment on above: Granulation tissue; Hymen abnormality Start: 09-24-2024 End: 09-24-2024 ambulatory DIPTI ACEVEDO Not Available Start: 09-16-2024 End: 09-16-2024 ambulatory [facility] Work Phone: Start: 09-16-2024 End: 09-16-2024 Patient encounter procedure [facility] Work Phone: Start: 09-04-2024 End: 09-04-2024 Office outpatient visit 15 minutes Ron King STEWARD/STEWARDESS NIGHT Work Phone: [phone] Comment on above: Anxiety (Primary Dx) Urinary frequency; Urinary urgency; Burning with urination; Erythema; Chronic vulvitis; Night sweats Start: 09-04-2024 End: 09-04-2024 ambulatory RON KING Not Available Start: 08-27-2024 End: 08-27-2024 ambulatory ELICEO GÓMEZ Not Available Start: 08-26-2024 ambulatory MERISSA DELAROSA [facility] y:[facility] Start: 08-07-2024 End: 08-07-2024 Office outpatient visit 40 minutes Radha Cardenas MD Work Phone: Gastroenterology and Hepatology [facility] Comment on above: Chronic abdominal pa in (Primary Dx); Avoidant-restrictive food intake disorder (ARFID); Bloating; Gastroparesis Start: 08-07-2024 ambulatory PADMAJA LLAMAS [facility] Start: 08-05-2024 End: 08-05-2024 ambulatory Ace Ahumada MD Facility: [facility] Start: 08-01-2024 End: 08-01-2024 ambulatory ELICEO GÓMEZ Not Available Start: 07-26-2024 End: 07-26-[address] [facility] Start: 07-22-2024 End: 07-22-2024 ambulatory Ace Ahumada MD Facility: [facility] Start: 07-15-2024 End: 07-15-2024 ambulatory ELICEO GÓMEZ Not Available Start: 07-11-2024 End: 07-11-2024 ambulatory ELICEO GÓMEZ Not Available Start: 07-01-2024 End: 07-01-2024 ambulatory Ace Ahumada MD Facility:[facility] Start: 06-27-2024 End: 06-27-2024 ambulatory SIDNEY Sukumar BIA Not Available Start: 06-17-2024 End: 06-17-2024 ambulatory Ace Ahumada MD Facility:[facility] Start: 06-14-2024 End: 06-14-2024 ambulatory CARMEN Guzman PETITTI Not Available Start: 06-12-2024 Refill Isra rios DO Work Phone: Gastroenterology Comment on above: Refill Request Start: 06-12-2024 End: 06-12-2024 ambulatory DIPTI ACEVEDO Not Available Start: 06-12-2024 End: 06-12-2024 ambulatory RON KING Not Available Start: 06-03-2024 End: 06-03-2024 ambulatory CARMEN Guzman PETITTI Not Available Start: 05-27-2024 End: 05-27-2024 ambulatory DO Shannon Gómez Work Phone: [facility] Work Phone: Start: 05-27-2024 End: 05-27-2024 Departed Referred DO Shannon Gómez Work Phone: [facility]-LAB Path [facility] Start: 05-20-2024 End: 05-20-2024 ambulatory DIPTI ACEVEDO Not Available Start: 05-14-2024 End: 05-14-2024 ambulatory ELICEO GÓMEZ Not Available Start: 05-13-2024 End: 05-13-2024 ambulatory Ace Ahumada MD Facility:[facility] Start: 05-06-2024 End: 05-06-2024 ambulatory NELSY SNYDER Not Available Start: 05-02-2024 End: 05-02-2024 ambulatory ELICEO GÓMEZ Not Available Start: 04-30-2024 End: 04-30-2024 Patient encounter procedure DO Shannon Gómez Work Phone: [facility]-MRI [address] Work Phone: Start: 04-30-2024 End: 04-30-2024 ambulatory DO Shannon Gómez Work Phone: [facility] Work Phone: Start: 04-28-2024 End: 04-29-2024 ambulatory Ace Ahumada MD Facility:[facility] Start: 04-28-2024 End: 04-28-[address] [facility] Start: 04-22-2024 End: 04-22-2024 ambulatory Ace Ahumada MD Facility:[facility] Start: 04-15-2024 End: 04-15-2024 ambulatory SIDNEY AMEZQUITA Not Available Start: 04-12-2024 ambulatory MILAGROS FRANCO Facility:[facility] Start: 04-12-2024 End: 04-12-2024 Subsequent hospital visit by physician Milagros Franco MD, PhD Work Phone: [facility] [place] Comment on above: Arrived Start: 04-03-2024 End: 04-03-[address] [facility] Start: 03-26-2024 End: 03-26-2024 ambulatory JES MARTINEZ Not Available Start: 03-25-2024 End: 03-25-2024 ambulatory Ace Ahumada MD Facility: [facility] Start: 03-14-2024 End: 03-14-2024 ambulatory RON KING Not Available Start: 03-12-2024 ambulatory Flower Sanabria on MARKET RESEARCH MANAGER.ELECTRICAL JOURNEYMAN Work Phone: URO/Gynecology Comment on above: Estradiol vaginal cr eam Start: 03-08-2024 ambulatory Shannon Ramos ty:[facility] Start: 03-06-2024 ambulatory Shannon Ramos ty:[facility] Start: 03-06-2024 ambulatory Shannon Ramos ty:[facility] Start: 03-06-2024 ambulatory Shannon Ramos ty:[facility] Start: 03-04-2024 End: 03-04-2024 ambulatory Ace Ahumada MD Facility:[facility] Start: 02-27-2024 End: 02-27-2024 ambulatory FLOWER JESSICA Facility:[facility] Start: 02-27-2024 End: 02-27-2024 Patient encounter procedure Flower Lopez MARKET RESEARCH MANAGER.ELECTRICAL JOURNEYMAN Work Phone: URO/Gynecology Comment on above: Post-operative state (Primary Dx); Vaginal burning Start: 02-26-2024 End: 02-26-2024 ambulatory Ace Ahumada MD Facility:[facility] Start: 02-11-2024 End: 02-11-2024 ambulatory ELICEO GÓMEZ JR Facility:[facility] Start: 02-11-2024 End: 02-11-2024 ambulatory Lissa Doyle MARKET RESEARCH MANAGER.ELECTRICAL JOURNEYMAN Work Phone: Telemedicine Comment on above: Procedure and treatm ent not carried out for other reasons (Primary Dx) Start: 02-11-2024 End: 02-11-2024 Telemedicine consultation with patient Lissa Doyle MARKET RESEARCH MANAGER.ELECTRICAL JOURNEYMAN Work Phone: [facility] Start: 02-09-2024 End: 02-09-2024 ambulatory Pam Wang MD Work Phone: URO/Gynecology Comment on above: Yeast infection Start: 02-07-2024 End: 02-07-[address] [facility] Start: 01-27-2024 Telephone encounter Radha florez MD Work Phone: Gynecology Start: 01-26-2024 End: 01-26-2024 ambulatory ELICEO GÓMEZ JR Facility:[facility] Start: 01-25-2024 End: 01-25-2024 Telemedicine consultation with patient Nurse Railway Track Plant Operator Work Phone: [facility] Start: 01-25-2024 Encounter for other preprocedural examination [facility] W[facility] Start: 01-25-2024 End: 01-25-2024 Admission to [facility] Work Phone: [facility] Start: 01-25-2024 End: 01-25-2024 ambulatory Nurse [employer] Plant Operator Work Phone: Pre Anesthesia Comment on above: Pre-op examination ( Primary Dx); Obesity (BMI 30.0-34.9); Mild persistent asthma without complication; CHUCKIE (obstructive sleep apnea); Primary hypertension; Gastroparesis; Gastroesophageal reflux disease, unspecified whether esophagitis present Educational circumst ances (Primary Dx) Start: 01-25-2024 End: 01-25-2024 Preprocedural examination done Pac Virtual Work Phone: [facility] Work Phone: Start: 01-23-2024 End: 01-23-2024 ambulatory ELICEO GÓMEZ Not Available Start: 01-15-2024 End: 01-15-2024 ambulatory Ace Ahumada MD Facility:[facility] Start: 01-10-2024 End: 01-10-2024 [facility] Start: 01-10-2024 End: 01-10-2024 Postop follow up visit related to original px Cullen Dawkins MD Work Phone: [facility] - ENT Comment on above: CHUCKIE (obstructive sle ep apnea) (Primary Dx) Start: 01-03-2024 End: 01-03-2024 Evaluation and management of inpatient RAJIV Ellis [facility] Start: 01-02-2024 End: 01-03-2024 Evaluation and management of inpatient [facility] Start: 01-02-2024 End: 01-02-2024 Evaluation and management of inpatient [facility] Start: 12-27-2023 Telephone encounter Cullen glover MD Work Phone: [facility] Start: 12-25-2023 ambulatory Pam rios MD Work Phone: URO/Gynecology Comment on above: Having another stimu lator besides bladder Start: 12-25-2023 Telephone encounter Pam simon MD Work Phone: Gynecology Comment on above: Question Start: 12-25-2023 End: 12-25-2023 ambulatory Ace Ahumada MD Facility: [facility] Start: 12-20-2023 End: 12-20-2023 ambulatory CULLEN DAWKINS [facility] Start: 12-20-2023 Encounter for other preprocedural examination RAJIV WILKNISON [facility] Start: 12-20-2023 End: 12-20-2023 Patient encounter procedure [facility] Comment on above: Pre-op testing (Prim tomer Dx) Start: 12-20-2023 End: 12-20-2023 Patient encounter status [facility] Start: 12-11-2023 End: 12-11-2023 ambulatory Ace Ahumada MD Facility: [facility] Start: 11-30-2023 End: 11-30-2023 ambulatory EAGLE VAZQUEZ Not Available Start: 11-27-2023 End: 11-27-2023 ambulatory Beto Snyder Other [employer] Other Start: 11-27-2023 Telephone encounter [facility] Start: 11-23-2023 End: 11-23-2023 Patient encounter procedure DO Shannon Gómez Work Phone: [facility] Work Phone: Start: 11-23-2023 End: 11-23-2023 ambulatory DO Shannon Gómez Work Phone: [facility] Work Phone: Start: 11-21-2023 End: 11-21-2023 ambulatory ELICEO GÓMEZ JR Facility:[facility] Start: 11-16-2023 End: 11-16-2023 ambulatory Beto Snyder Other [employer] Other Start: 11-16-2023 Telephone encounter [facility]o [facility] Start: 11-14-2023 End: 11-14-2023 ambulatory DIPTI Zoya ACEVEDO Not Available Start: 11-14-2023 End: 11-14-2023 ambulatory EAGLE VAZQUEZ Not Available Start: 11-10-2023 End: 11-10-2023 ambulatory ELICEO GÓMEZ Not Available Start: 11-08-2023 [facility] Start: 10-31-2023 End: 10-31-2023 ambulatory RON KING Not Available Start: 10-27-2023 End: 10-27-2023 ambulatory EAGLE VAZQUEZ Not Available Start: 10-26-2023 Telephone encounter [facility] Start: 10-26-2023 End: 10-26-[address] [facility] [employer] Other Start: 10-24-2023 End: 10-24-2023 ambulatory EAGLE VAZQUEZ Not Available Start: 10-23-2023 End: 10-23-2023 ambulatory [facility] Start: 10-10-2023 End: 10-10-2023 ambulatory ELICEO GÓMEZ Facility:[facility] Start: 10-06-2023 End: 10-06-2023 ambulatory Beto Snyder Other [facility] [employer] Other Start: 10-06-2023 Telephone encounter [facility]o [facility] Start: 10-03-2023 End: 10-03-2023 ambulatory ELICEO GÓMEZ Not Available Start: 09-27-2023 End: 09-27-2023 ambulatory Pam Wang MD Work Phone: Urogynecology Comment on above: Worsening Start: 09-27-2023 Refill Doris Arias APRN.KWESI Work Phone (unformatted): [phone] Urogynecology Comment on above: Med Change Request Start: 09-11-2023 End: 09-11-2023 ambulatory PAM WANG Facility:[facility] Start: 08-12-2023 End: 08-12-2023 Emergency department patient visit LEX SALMON [facility] Start: 08-12-2023 End: 08-12-2023 Emergency department patient visit Lex Salmon MD Work Phone: [facility] Emergency Dept Comment on above: Upper abdominal pain (Primary Dx) Start: 08-09-2023 ambulatory Mary Obrien MD Work Phone: Colorectal Surgery Comment on above: Response Start: 08-07-2023 End: 08-07-2023 ambulatory Mary Obrien MD Work Phone: Colorectal Surgery Comment on above: Colon Start: 08-01-[address] Eliceo Gómez Jr Facility: Start: 07-31-2023 End: 07-31-2023 ambulatory ELICEO GÓMEZ JR Facility:[facility] Start: 07-31-2023 End: 07-31-2023 Patient encounter procedure Nelsy Chávez APRN.CNP Work Phone: URO/Gynecology Comment on above: Incomplete bladder e mptying (Primary Dx); Constipation, unspecified constipation type; Urinary urgency; Urinary frequency; Nocturia Start: 07-17-2023 (Procedure) Short Beto Snyder [facility] Start: 07-17-2023 End: 07-17-2023 ambulatory Beto Snyder Other [facility] [employer] Other Start: 07-12-2023 End: 07-12-2023 ambulatory Beto Snyder Other [facility] [employer] Other Start: 07-12-2023 Telephone encounter [facility] Start: 06-13-2023 Office consultation new/estab patient 60 min Eliceo Gómez Work Phone: [facility]-[place] [address] DO Work Phone: Start: 06-13-[address] Dipti Anaya Facility: Start: 06-07-[address] Dipti Anaya Facility:[id number] Start: 06-05-2023 End: 06-05-2023 Emergency department patient visit DO Shannon Lugo Stephonjerometomasa Work Phone: [facility]-Emergency Room Work Phone: Start: 05-28-2023 ambulatory Pam rios MD Work Phone: URO/Gynecology Comment on above: Problems with urinat ing Start: 04-26-2023 End: 04-26-2023 ambulatory Beto Snyder Other [employer] Other Start: 04-26-2023 Office outpatient vi sit 25 minutes Beto Snyder [facility] Start: 04-11-2023 Refill Isra S Clin e DO Work Phone: Gastroenterology Comment on above: Refill Request Start: 04-04-2023 End: 04-05-[address] Isatu GÓMEZ Facility:[facility] Start: 03-19-2023 ambulatory Isra S Clin e DO Work Phone: Gastroenterology Comment on above: Stool sample results Start: 03-17-2023 End: 03-17-2023 ambulatory DO Shannon Lugo Stephonleigha Work Phone: [facility] Work Phone: Start: 03-17-2023 End: 03-17-2023 Discharged Recurring DO Shannon Parish Szymanskileigha Work Phone: [facility]-Physical Therapy [place] Work Phone: Start: 03-15-2023 Orders Only Isra [...] on above: Clarification Start: 01-19-2023 ambulatory Winston Zoya chand DO Work Phone: General Surgery Comment on above: General Start: 01-16-2023 Telephone encounter Mounika farrell PA-C Work Phone: Pre Anesthesia Comment on above: Appointment (Pt has not arrived for her 1 pm appointment) Start: 01-16-2023 End: 01-16-2023 Admission to establishment [facility] Start: 01-16-2023 End: 01-16-[address] [facility] Pre Anesthesia Comment on above: Preop examination (P rimary Dx); Nausea; CHUCKIE (obstructive sleep apnea); Mild persistent asthma without complication; Gastroesophageal reflux disease, unspecified whether esophagitis present; Gastroparesis Start: 01-16-2023 End: 01-16-2023 Preprocedural examination done Pac [facility] Pre Anesthesia Start: 01-11-2023 Telephone encounter Winston aceves DO Work Phone: General Surgery Comment on above: Schedule Procedure Start: 01-10-2023 End: 01-10-2023 ambulatory Winstonwinnie Hannah DO Work Phone: General Surgery Comment on above: Pylorospasm (Primary Dx); Functional dyspepsia; Gastroesophageal reflux disease with esophagitis without hemorrhage Start: 01-10-2023 End: 01-10-2023 Telemedicine consultation with patient Winston Kenny Brielle DO Work Phone: [facility] Start: 12-28-2022 ambulatory Yoni Tuttle MD [...] End: 12-22-2022 Telemedicine consultation with patient Winston Karimitrinitymarco DO Work Phone: [facility] Start: 12-21-2022 End: 12-22-2022 ambulatory SADE Kenny [facility] Facility:[facility] Start: 12-15-2022 End: 12-15-2022 Manual pelvic examination Mary Obrien MD Work Phone: Colorectal Surgery Comment on above: Colonic inertia (Phoebe unique Dx); Pelvic floor dysfunction; Nausea; Gastroparesis Start: 12-15-2022 End: 12-15-2022 Telemedicine consultation with patient Mray Obrien MD Work Phone: [facility] Start: 12-14-2022 ambulatory Yoni Tuttle MD [...] patient questions) Start: 12-07-2022 ambulatory Winston Zoya chand DO Work Phone: General Surgery Comment on above: Carafate Start: 12-06-2022 ambulatory Isra rios DO Work Phone: Gastroenterology Comment on above: Results Start: 12-05-2022 ambulatory Winston Zoya chand DO Work Phone: [facility] Start: 12-02-2022 ambulatory Isra rios DO Work Phone: [facility] Start: 12-02-2022 Telephone encounter Yoni Tuttle MD Work Phone: Neurology Comment on above: Returning Nurse Call Start: 12-01-2022 End: 12-02-2022 ambulatory NIECY DURON Facility:[facility] Start: 11-30-2022 End: 11-30-2022 ambulatory Isra Masters DO Work Phone: Gastroenterology Comment on above: Chronic idiopathic c onstipation (Primary Dx); Nausea Start: 11-30-2022 End: 11-30-2022 Telemedicine consultation with patient Isra Masters DO Work Phone: [facility] Start: 11-24-2022 ambulatory [facility] [...] establishment Pac Tevin Guzman 2 Work Phone: [facility] Start: 11-21-2022 End: 11-21-2022 Preprocedural examination done Pac 2 Work Phone: Pre Anesthesia Start: 11-17-2022 ambulatory Annmarie Gillespie RN Gastroe nterology Start: 11-17-2022 Patient encounter procedure Annmarie Gillespie RN [facility] Start: 11-17-2022 End: 11-17-2022 Subsequent hospital visit by physician Capsule Work Phone: Gastroenterology Start: 11-16-2022 ambulatory Yoni Tuttle MD Work Phone: NEUROLOGY Comment on above: The delay Start: 11-15-2022 ambulatory Yoni Tuttle MD Work Phone: NEUROLOGY Comment on above: Labs Start: 11-14-2022 End: 11-15-2022 ambulatory NIECY KAREEM Facility:[facility] Start: 11-10-2022 Telephone encounter Annmarie Gillespie RNvocational nurse Comment on above: Preparations For Pro cedures [...] Encounter for preprocedural laboratory examination SADE FELIX [facility] Start: 10-20-2022 End: 10-20-2022 ambulatory Isra Masters [...] 10-14-2022 ambulatory DO Shannon Gómez Work Phone: [facility] Work Phone: Start: 10-14-2022 End: 10-14-2022 Discharged Recurring DO Shannon Gómez Work Phone: [facility]-Physical Therapy [place] Work Phone: Start: 10-13-2022 End: 10-14-2022 ambulatory SADE FELIX Facility:[facility] Start: 10-13-2022 End: 10-14-2022 Encounter for preprocedural laboratory examination SADE FELIX Facility:[facility] Start: 10-11-2022 End: 10-11-2022 ambulatory Beto Cartagena Other [employer] Other Start: 10-11-2022 Telephone encounter Beto Cartagena [facility] [employer] Start: 10-11-2022 End: 10-11-2022 Patient encounter procedure Isra Masters DO Work Phone: Gastroenterology Comment on above: Gas bloat syndrome ( Primary Dx); Chronic idiopathic constipation; Gastroparesis Start: 10-10-2022 End: 10-10-2022 ambulatory Beto Cartagena Other [employer] Other Start: 10-10-2022 Office outpatient ne w 30 minutes Beto Cartagena [facility] Start: 10-06-2022 End: 10-06-2022 ambulatory Beto Snyder Other [employer] Other Start: 10-06-2022 Patient encounter procedure Beto Snyder [facility] Start: 09-28-2022 Encounter for other preprocedural examination SADE Kenny [facility] Start: 09-28-2022 Encounter for preprocedural cardiovascular examination [facility] Zoya [facility] Start: 09-26-2022 End: 09-27-2022 ambulatory [facility] Facility:[facility] Start: 09-22-2022 Office outpatient vi sit 25 minutes Beto Snyder [facility] Start: 09-22-2022 Telephone encounter Beto [facility] Start: 09-22-2022 End: 09-22-2022 ambulatory DO Shannon Gómez Work Phone: [employer] Other Start: 09-22-2022 End: 09-22-2022 Patient encounter procedure DO Shannon Gómez Work Phone: [facility] Start: 09-14-2022 End: 09-14-2022 ambulatory Eliceo Gómez Other [employer] Other Start: 09-14-2022 Encounter by sierra Fenton Stephonleigha [facility] Start: 09-14-2022 Office outpatient vi sit 15 minutes Beto Snyder [facility] Start: 09-14-2022 Telephone encounter [facility]o [facility] Start: 08-16-2022 ambulatory Mary Obrien MD Work Phone: Colorectal Surgery Comment on above: CT results Ct scan result quest ion Start: 08-16-2022 E-mail encounter kendra jacinto caregiver Mary Obrien MD Work Phone: [facility] Start: 08-12-2022 End: 08-12-2022 Subsequent hospital visit by physician Ct Prep [facility] Start: 07-27-2022 End: 07-28-2022 ambulatory [facility] Facility: Start: 07-26-2022 Telephone encounter Isra Masters DO Work Phone: Gastroenterology Comment on above: Medication Problem; Medication 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 (PA for Dexlansoprazole) Start: 07-26-2022 End: 07-26-2022 Patient encounter procedure Mary Obrien MD Work Phone: Colorectal Surgery Comment on above: Follow-up examinatio n after colorectal surgery (Primary Dx); Periumbilical abdominal pain; Outlet dysfunction constipation; Colonic inertia Start: 06-08-2022 (Procedure) Short Beto Snyder [facility] Start: 06-08-2022 End: 06-08-2022 ambulatory Beto Snyder Other [facility] [employer] Other Start: 05-30-2022 Refill Mary Obrien MD Work Phone: Colorectal Surgery Comment on above: Refill Request Start: 05-26-2022 End: 05-26-2022 ambulatory Beto Snyder Other [employer] [employer] Other Start: 05-26-2022 Office outpatient vi sit 25 minutes Beto Snyder [facility] Start: 05-12-2022 Office consultation new/estab patient 60 min Eliceo Gómez Work Phone: [facility] [facility] 250 DO Work Phone: Start: 05-10-2022 End: 05-10-2022 ambulatory Allison Arita Other [place] [employer] Other Start: 05-10-2022 Office outpatient vi sit 15 minutes Allison Arita [facility] Start: 05-03-2022 Telephone encounter Mary brewer MD Work Phone: Colorectal Surgery Comment on above: Senior Water Resources Engineer - 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 Facility: Start: 04-07-2022 Telephone encounter Rachael Kenny [facility] Department Comment on above: PostOp Follow-up Start: 03-22-2022 Telephone encounter Mary brewer MD Work Phone: Colorectal Surgery Comment on above: Patient Question Start: 03-15-2022 End: 03-15-2022 ambulatory Beto Snyder Other [employer] Other Start: 03-15-2022 Office outpatient vi sit 15 minutes Beto Snyder [facility] [place] Start: 03-15-2022 Telephone encounter Mary brewer MD Work Phone: Colorectal Surgery Comment on above: Senior Water Resources Engineer - O ther Medication Preauthor ization (PA for Dexilant renewal) Outside Labs Results Start: 03-15-2022 End: 03-15-2022 Patient encounter procedure Isra Galarzae DO Work Phone: Gastroenterology Comment on above: Gastroesophageal ref lux disease, unspecified whether esophagitis present; Chronic idiopathic constipation Start: 03-14-2022 End: 03-14-2022 [facility] 4 Work Phone: Pre Anesthesia Comment on above: Preop examination (P rimary Dx); Attention to ileostomy ([facility]); Primary hypertension; Gastroparesis; Gastroesophageal reflux disease, unspecified whether esophagitis present; Mild persistent asthma without complication; Bipolar 1 disorder ([facility]); Obesity (BMI 30.0-34.9) Start: 03-14-2022 End: 03-14-[address] [facility] 4 Work Phone: Pre Anesthesia Start: 02-28-2022 Telephone encounter Isra Masters DO Work Phone: Gastroenterology Comment on above: Appointment (for scr ipt refill) Start: 02-18-2022 End: 02-18-2022 Patient encounter procedure Nelsy Chávez APRN.ELECTRICAL JOURNEYMAN Work Phone: URO/Gynecology Comment on above: Postoperative state (Primary Dx) Start: 02-11-2022 End: 02-11-2022 ambulatory Flaca Bartholomew PT Work Phone: [facility] Start: 02-11-2022 End: 02-11-2022 Follow-up encounter Flaca Bartholomew PT Work Phone: [facility] Comment on above: Pelvic floor dysfunc tion (Primary Dx); Lack of coordination; Follow-up examination after colorectal surgery Start: 02-09-2022 (Procedure) Win Snyder [facility] Start: 02-09-2022 End: 02-09-2022 ambulatory Beto Pradeeptonia Other [employer] Other Start: 02-08-2022 End: 02-08-2022 Patient encounter procedure Mary Obrien MD Work Phone: Colorectal Surgery Comment on above: Follow-up examinatio n after colorectal surgery (Primary Dx) Post-operative state (Primary Dx); Yeast infection of the skin Start: 02-01-2022 Refill Isra S Clin e DO Work Phone: Gastroenterology Comment on above: Refill Request (dexl ansoprazole) Start: 01-31-2022 End: 01-31-2022 ambulatory Newton Woodward PT Work Phone: [facility] Start: 01-31-2022 End: 01-31-2022 Follow-up encounter Newton Woodward PT Work Phone: [facility] Comment on above: Pelvic floor dysfunc tion (Primary Dx); Lack of coordination; Follow-up examination after colorectal surgery Start: 11-25-2021 End: 11-25-2021 ambulatory Beto Snyder Other [employer] Other Start: 11-25-2021 Office outpatient vi sit 25 minutes Beto Snyder [facility] Start: 11-17-2021 End: 11-18-2021 ambulatory [facility] Start: 10-20-2021 End: 10-20-2021 ambulatory Beto Snyder Other [employer] Other Start: 10-20-2021 Office outpatient vi sit 25 minutes Beto Snyder [facility] Start: 10-13-2021 (Procedure) Short Beto Fernándeztonia [facility] Start: 10-13-2021 End: 10-13-2021 ambulatory Beto Snyder Other [place] [employer] Other Start: 09-06-2021 Office outpatient vi sit 25 minutes Beto Fernándeztonia [facility] Start: 08-19-2021 Office outpatient vi sit 15 minutes Erica Vashti [facility] Start: 08-13-2021 Office outpatient vi sit 15 minutes Tita Pinanty [facility] Start: 08-12-2021 Office outpatient vi sit 25 minutes Beto Snyder [facility] [place] Start: 07-28-2021 Office outpatient vi sit 25 minutes Beto Pradeepotnia [facility] Start: 12-25-2020 End: 12-25-2020 Subsequent hospital visit by physician Brianna Connors 1 Work Phone: Radiology Comment on above: Post-operative state [Z98.890] Start: 09-29-2020 End: 09-29-2020 Subsequent hospital visit by physician Brianna Connors 1 Work Phone: Radiology Comment on above: Pain [R52] Procedures Date Procedure Procedure Detail Performing Clinician Start: 09-04-2024 Urnls dip stick/tabl et rgnt non-auto w/o micrscp Dipti Acevedo DO Work Phone: Start: 07-26-2024 Follow-up visit Follow-up PAULINE SH EIKH Start: 04-30-2024 MRI of right ankle DO Isatu Gómez Work Phone: Start: 04-12-2024 DIAGNOSTIC UPPER ENDOSCOPY Padmaja Llamas MD, PhD Work Phone: Start: 02-27-2024 BACTERIAL VAGINOSIS NAAT Flower Lopez MARKET RESEARCH MANAGER.ELECTRICAL JOURNEYMAN Work Phone: Start: 02-27-2024 Iadna trichomonas vaginalis amplified probe tech Flower Lopez MARKET RESEARCH MANAGER.ELECTRICAL JOURNEYMAN Work Phone: Start: 02-27-2024 Urnls dip stick/tabl et rgnt auto w/o microscopy Flower Lopez MARKET RESEARCH MANAGER.ELECTRICAL JOURNEYMAN Work Phone: Start: 12-20-2023 Basic metabolic pane l calcium total Caroline Brewer MD Work Phone: Start: 11-23-2023 Radionuclide imaging of liver and/or biliary tract using radioactive isotope Shannon Szymanskijerometomasa Work Phone: Start: 11-01-2023 Lipid 1996 panel - S jay or Plasma Pam Wang MD Work Phone: Start: 10-31-2023 Mammography Ron King STEWARD/STEWARDESS NIGHT Work Phone: Start: 10-23-2023 Follow-up visit Follow-up PAULINE CHRISTENSEN Start: 10-23-2023 Adult depression scr eening assessment Emily Hisamelia Start: 08-12-2023 Assay of troponin quantitative Lev Ritter APRN ELECTRICAL JOURNEYMAN Work Phone: Start: 08-12-2023 Ct abdomen & pelvis w/contrast material Lev Ritter APRN ELECTRICAL JOURNEYMAN Work Phone: Start: 08-12-2023 Urnls dip stick/tabl et reagent auto microscopy Lex Salmon MD Work Phone: Start: 08-12-2023 Basic metabolic pane l calcium total Lex Salmon MD Work Phone: Start: 08-12-2023 DARK GREEN TOP Lex buitrago MD Work Phone: Start: 08-12-2023 GOLD TOP Lex urbina MD Work Phone: Start: 08-12-2023 Hepatic function panel Lev Ritter APRN ELECTRICAL JOURNEYMAN Work Phone: Start: 08-12-2023 LIGHT BLUE TOP [...] et rgnt auto w/o microscopy Nelsy Chávez MARKET RESEARCH MANAGER.ELECTRICAL JOURNEYMAN Work Phone: Start: 06-05-2023 Plain chest X-ray DO Shannon Gómez Work Phone: Start: 05-23-2023 H/O: artificial joint Presence of right artificial ankle joint Ron Fernando STEWARD/STEWARDESS NIGHT Work Phone: Start: 03-02-2023 Aerobic microbial culture DO Shannon Gómez Work Phone: Start: 12-26-2022 Radiologic exam esop hagus single contrast study Winston Karimirai DO Work Phone: Start: 09-22-2022 Plain X-ray of bilat eral shoulders DO Shannon Gómez Work Phone: Start: 09-22-2022 X-ray of both knees DO Shannon Gómez Work Phone: Start: 09-14-2022 Mammography Lex rincon MD Work Phone: Start: 03-02-2022 Lipid 1996 panel - S jay or Plasma Nelsy Chávez MARKET RESEARCH MANAGER.ELECTRICAL JOURNEYMAN Work Phone: Start: 02-08-2022 Urnls dip stick/tabl et rgnt auto w/o microscopy Magali Mitchell MARKET RESEARCH MANAGER.ELECTRICAL JOURNEYMAN Work Phone: Start: 12-16-2021 Antibody screen Comment on above: Performed By: #### T [id number] ####[address] [phone] Start: 10-15-2021 Antibody screen Comment on above: Performed By: #### T SCR30 ####[address] [phone] Start: 06-28-2021 Mammography Mary brewer MD Work Phone: Start: 02-18-2021 H/O: surgery S/P nasal septoplasty Mannie Zamora Start: 02-18-2021 History of tonsillectomy S/P tonsill ectomy Emily Zamora Start: 12-25-2020 Radex shoulder compl ete minimum 2 views Chan Quinones PA-C Work Phone: Start: 09-29-2020 Radex shoulder compl ete minimum 2 views Ryan Lynne MD Work Phone: Colonoscopy Eliceo R Dalia Work Phone: Hysterectomy Eliceo R Dalia Work Phone: Ligation of fallopian tube G eorbahman R Dalia Work Phone: Operation on colon Eliceo R Dalia Work Phone: Operation on rectum Eliceo R Dalia Work Phone: Operative procedure on foot Eliceo Gómez Work Phone: Operative procedure on hand Eliceo R Dalia Work Phone: Operative procedure on knee Eliceo Gómez Work Phone: Procedure on neck Eliceo R Earl affiona Work Phone: Repair of musculoten dinous cuff of shoulder Eliceo R Dalia Work Phone: Tonsillectomy and adenoidectomy Eliceo Gómez Work Phone: Plan of Treatment Date Care Activity Detail Author Start: 06-22-2030 Administration of diphtheria + tetanus + acellular pertussis vaccine DTAP/TDAP/TD VACCINE (2 - Td or Tdap) [facility] [place] 2[facility] Start: 06-22-2030 DTaP,Tdap and Td Vaccines (2 - Td or Tdap) DTaP,Tdap and Td Vaccines (2 - Td or Tdap) [facility] Start: 06-22-2030 Tetanus vaccination TETANUS [facility] Start: 06-22-2030 Urine microalbumin profile DTaP,Tdap,Td Vaccine (2 - Td or Tdap) [facility] Start: 12-27-2028 Lipid panel Lipid Screening [facility] Start: 12-05-2027 COLORECTAL CANCER SCREENING COLORECTAL CANCER SCREENING [facility] Start: 12-05-2027 Screening for malignant neoplasm of colon [facility] Start: 12-05-2027 SIGMOIDOSCOPY SIGMOIDOSCOPY [facility] Start: 03-02-2027 Lipid 1996 panel - Serum or Plasma Lipid Screening [facility] Start: 03-02-2027 LIPID SCREEN LIPID SCREEN [facility] Start: 12-20-2026 Diabetes Screening Diabetes Screening [facility] Start: 08-12-2026 Diabetes Screening Diabetes Screening [facility] Start: 04-05-2025 DIABETES SCREEN DIABETES SCREEN [facility] Start: 04-05-2025 Diabetes Screening Diabetes Screening [facility] Start: 03-14-2025 DIABETES SCREEN DIABETES SCREEN [facility] Start: 03-14-2025 Medicare Annual Wellness (AWV) Medicare Annual Wellness (AWV) [facility] Start: 01-09-2025 Adult BMI Screening Adult BMI Screening [facility] Start: 01-09-2025 Tobacco Screening Tobacco Screening [facility] Start: 12-26-2024 DIABETES SCREEN DIABETES SCREEN [facility] Start: 12-20-2024 Adult BMI Screening Adult BMI Screening [facility] Start: 12-20-2024 Tobacco Screening Tobacco Screening [facility] Start: 11-11-2024 End: 11-11-2024 Patient encounter procedure 11/11/2024 9:20 AM EST Office Visit [facility] [address] [place] [phone] eNlsy Snyder, MARKET RESEARCH MANAGER-ELECTRICAL JOURNEYMAN [address] [place] [address] [facility] Start: 11-04-2024 End: 11-04-2024 Telemedicine consultation with patient 11/04/2024 2:00 PM EST Telemedicine [facility] [address] [place] [address] [place] [phone] Merissa Delarosa, RD [address] [place] [phone] [facility] Start: 11-01-2024 End: 11-01-2024 Professional / ancillary services management 11/01/2024 11:00 AM EST Ancillary Procedure [facility] [place] [address] [place] [phone] [facility] [place] Start: 10-31-2024 Screening for malignant neoplasm of breast [facility] Start: 10-23-2024 Adult BMI Screening Adult [facility]ening [facility] Start: 10-23-2024 Depression Screening Depression Screening [facility] Start: 10-23-2024 Tobacco Screening Tobacco Screening [facility] Start: 10-10-2024 BP Controlled (<130/80) BP Controlled (<130/80) [facility] Start: 07-07-2024 COVID-19 VACCINE ( season) COVID-19 VACCINE ( season) [facility] Start: 07-07-2024 Covid-19 Vaccine ( season) Covid-19 Vaccine ( season) [facility] Start: 07-07-2024 Influenza vaccination [facility] Start: 05-31-2024 Zoster vaccine hzv live for subcutaneous use ZOSTER (SHINGLES) VACCINE (2 of 2) [facility] Start: 04-18-2024 End: 04-18-2024 Patient encounter procedure 04/18/2024 1:30 PM EDT [facility] [address] [place] [phone] Pauline Christensen MD [address] [place] [address], [address] [place] [address] [facility] Start: 01-10-2024 End: 01-10-2024 Patient encounter procedure 01/10/2024 12:45 PM EST Office Visit [facility] - ENT [address] [place] [address], [address] [place] [address] [place] [address] [place] [address] [address] [facility] [address] [facility] Start: 01-02-2024 End: 01-02-2024 Admission to same day surgery center 01/02/2024 11:00 AM EST - 01/02/2024 3:30 PM EST Surgery [facility] Surgery [address] [place] [address] Cullen Dawkins MD [address] [place] [address] [address] [place] [address] INSERTION STIMULATOR NERVE HYPOGLOSSAL [74672 (CPT )] [facility] Surgery Comment on above: INSERTION STIMULATOR NERVE HYPOGLOSSAL [ 10139 (CPT )] Start: 01-02-2024 End: 01-02-2024 INSERTION STIMULATOR NERVE HYPOGLOSSAL INSERTION STIMULATOR NERVE HYPOGLOSSAL CHUCKIE (obstructive sleep apnea) 01/02/2024 11:00 AM [facility] Start: 01-02-2024 Subsequent hospital visit by physician 01/02/2024 11:00 AM EST Hospital Encounter [facility] Surgery [address] [place] [address] Cullen Dawkins MD [address] [place] [address] [address] [place] [address] [facility] Surgery Start: 11-06-2023 Behavioral Health Screening Behavioral Health Screening [facility] Start: 11-06-2023 Depression Assessment Depression Assessment [facility] Start: 09-27-2023 End: 12-27-2023 Bacteria identified in Urine by Culture URINE CULTURE Microbiology Routine Burning with urination Expected: 09/27/2023, Expires: 12/27/2023 [facility] Work Phone: Comment on above: Expected: 09/27/2023, Expires: 4 Start: 09-14-2023 Screening for malignant neoplasm of breast MAMMOGRAM [facility] Start: 08-01-2023 FUV, Provider: Dipti Anaya, Status: Pen, Time: 11:00 AM FUV, Provider: Dipti Anaya, Status: Gopal, Time: 11:00 AM [facility] DO Work Phone: Start: 07-07-2023 Covid-19 Vaccine ( season) Covid-19 Vaccine () [facility] Start: 07-07-2023 Influenza vaccination [facility] Start: 07-07-2023 Influenza vaccination given INFLUENZA VACCINE (#1) [facility] Start: 06-05-2023 [facility] Start: 04-22-2023 BP CONTROLLED (<130/80) BP CONTROLLED (<130/80) [facility] Start: 03-14-2023 BP CONTROLLED (<130/80) BP CONTROLLED (<130/80) [facility] Start: 02-18-2023 BP CONTROLLED (<130/80) BP CONTROLLED (<130/80) [facility] Start: 02-08-2023 BP CONTROLLED (<130/80) BP CONTROLLED (<130/80) [facility] Start: 01-18-2023 BP CONTROLLED (<130/80) BP CONTROLLED (<130/80) [facility] Start: 11-06-2022 DEPRESSION ASSESSMENT DEPRESSION ASSESSMENT [facility] Start: 09-22-2022 [facility] Start: 08-02-2022 End: 08-25-2023 Ct abdomen & pelvis w/contrast material CT ABD/PEL W IVCON Radiology Routine Periumbilical abdominal pain Expected: 08/02/2022, Expires: 08/25/2023 [facility] Work Phone: Comment on above: Expected: 08/02/2022, Expires: 3 Start: 07-07-2022 Influenza vaccination [facility] Start: 06-28-2022 Mammography [facility] Start: 2022 Administration of varicella zoster vaccine Zoster (Shingles) Vaccine (1 of 2) [facility] Start: 2022 COVID-19 VACCINE (4 - Booster for Pfizer series) COVID-19 VACCINE (4 - Booster for Pfizer series) [facility] Start: 2022 SHINGRIX VACCINE (1 of 2) SHINGRIX VACCINE (1 of 2) [facility] Start: 2022 Zoster vaccine hzv live for subcutaneous use ZOSTER (SHINGLES) VACCINE (1 of 2) [facility] Start: 04-01-2022 End: 06-01-2022 CBC W Auto Differential panel - Blood CBC + DIFF Lab Routine Follow-up examination after colorectal surgery Expected: 04/01/2022, Expires: 06/01/2022 [facility] Work Phone: Comment on above: Expected: 04/01/2022, Expires: 2 Start: 04-01-2022 End: 06-01-2022 Comprehensive metabolic 2000 panel - Serum or Plasma COMP METABOLIC PANEL Lab Routine Follow-up examination after colorectal surgery Expected: 04/01/2022, Expires: 06/01/2022 [facility] Work Phone: Comment on above: Expected: 04/01/2022, Expires: 2 Start: 04-01-2022 End: 06-01-2022 TYPE AND SCREEN,30 DAY TYPE AND SCREEN,30 DAY Blood Bank Routine Follow-up examination after colorectal surgery Expected: 04/01/2022, Expires: 06/01/2022 [facility] Work Phone: Comment on above: Expected: 04/01/2022, Expires: 2 Start: 01-19-2022 COVID-19 VACCINE (4 - Booster for Pfizer series) COVID-19 VACCINE (4 - Booster for Pfizer series) [facility] Start: 01-19-2022 COVID-19 VACCINE (4 - Pfizer series) COVID-19 VACCINE (4 - Pfizer series) [facility] Start: 11-06-2021 DEPRESSION ASSESSMENT DEPRESSION ASSESSMENT [facility] Start: 07-07-2021 Influenza vaccination INFLUENZA (#1) [facility] Start: 03-24-2021 Screening for malignant neoplasm of colon COLORECTAL CANCER SCREENING DISCUSSION [facility] Start: 04-05-2020 Screening for malignant neoplasm of breast MAMMOGRAM SCREENING DISCUSSION [facility] Start: 2017 COLOGUARD (FIT-DNA) COLOGUARD (FIT-DNA) [facility] Start: 2017 Colonoscopy COLONOSCOPY [facility] Start: 2017 COLORECTAL CANCER SCREENING COLORECTAL CANCER SCREENING [facility] Start: [address] COLONOGRAPHY [facility] Start: 2017 FECAL OCCULT BLOOD FECAL OCCULT BLOOD [facility] Start: 2017 LIPID SCREEN LIPID SCREEN [facility] Start: 2017 Screening for malignant neoplasm of colon [facility] Start: 2017 SIGMOIDOSCOPY SIGMOIDOSCOPY [facility] Start: 2012 Lipid panel LIPID SCREENING [facility] Start: 2012 Mammography MAMMOGRAM [facility] Start: 10-11-2008 Hepatitis B vaccination HEP B VACCINE (3 of 3 - 19+ 3-dose series) [facility] Start: 10-11-2008 Hepatitis B Vaccine (3 of 3 - 19+ 3-dose series) Hepatitis B Vaccine (3 of 3 - 19+ 3-dose series) [facility] Start: 2002 HPV TESTING HPV TESTING [facility] Start: 2002 Screening for malignant neoplasm of cervix HPV Testing [facility] Start: 1993 PAP TESTING PAP TESTING [facility] Start: 1993 Screening for malignant neoplasm of cervix [facility] Start: 1991 Urine microalbumin profile [facility] Start: 1990 Adult BMI Follow Up Plan Adult BMI Follow Up Plan [facility] Start: 1990 ANNUAL PCP TEAM CHRONIC DISEASE VISIT ANNUAL PCP TEAM CHRONIC DISEASE VISIT [facility] Start: 1990 ANNUAL WELLNESS VISIT ANNUAL WELLNESS VISIT [employer] [facility] Start: 1990 Anxiety Screening Anxiety Screening [facility] Start: 1990 BP CONTROLLED (<130/80) BP CONTROLLED (<130/80) [facility] Start: 1990 Depression Screening Depression Screening [facility] Start: 1990 HEPATITIS C SCREENING HEPATITIS C SCREENING [facility] Start: 1990 Hepatitis C screening Hepatitis C Screening [facility] Start: 1990 HIV SCREENING HIV SCREENING [facility] Start: 1990 HIV screening HIV Screening [facility] Start: 1987 HIV screening HIV SCREENING DISCUSSION [facility] Start: 1984 Adult depression screening assessment DEPRESSION SCREENING [facility] Start: 1984 Depression screening using PHQ-9 (Patient Health Questionnaire 9) score DEPRESSION SCREENING [facility] Start: 1978 PNEUMOCOCCAL (1 - PCV) PNEUMOCOCCAL (1 - PCV) [facility] Start: 1978 Pneumococcal vaccination Pneumococcal Vaccine (1 - PCV) [facility] Start: 1972 HEPATITIS B (1 of 3 - 3-dose series) HEPATITIS B (1 of 3 - 3-dose series) [facility] Start: 1972 Hepatitis B Vaccine (1 of 3 - 3-dose series) Hepatitis B Vaccine (1 of 3 - 3-dose series) [facility] Start: 1972 Hepatitis C screening HEPATITIS C VIRUS SCREENING [facility] Start: 1972 HPV/COTEST HPV/COTEST [facility] Start: 1972 Screening for malignant neoplasm of cervix [facility] 12 lead ECG EKG 12 lead ECG REYNA 08/12/2023 12:28 AM [email or web address] [facility] Work Phone: CT Abdomen and Pelvi s W contrast IV CT Abdomen / Pelvis With IV Contrast ONLY Imaging STAT 08/12/2023 5:42 AM [employer] [facility] End: 01-12-2024 EGD - THERAPEUTIC, EUS, OR TUBE INTERVENTIONS EGD - THERAPEUTIC, EUS, OR TUBE INTERVENTIONS Endoscopy Routine Gastroparesis 1 Occurrences starting 01/11/2023 until 01/12/2024 [facility] Work Phone: Comment on above: 1 Occurrences starting 01/11/2023 until 01/12/2024 Electromyography [facility] FAT, FECAL QUAL FAT, FECAL QUAL Lab Routine Diarrhea due to malabsorption Ordered: 03/15/2023 [facility] Work Phone: Comment on above: Ordered: 03/15/2023 End: 10-11-2023 Gi transit & pres ravinder wireless capsule w/interp CAPSULE ENDOSCOPY SMART Endoscopy Routine Gastroparesis 1 Occurrences starting 10/11/2022 until 10/11/2023 [facility] Work Phone: Comment on above: 1 Occurrences starting 10/11/2022 until 10/11/2023 Hydrogen breath test HYDROGEN (H 2) BREATH TEST GI/Bronch Routine Chronic abdominal pain Bloating Ordered: 08/09/2024 [facility] Comment on above: Ordered: 08/09/2024 MR Cervical spine WO contrast [facility] End: 12-17-2023 PAP TITRATION PSG (CPAP, BIPAP, ASV) PAP TITRATION PSG (CPAP, BIPAP, ASV) Procedures Routine CHUCKIE (obstructive sleep apnea) 1 Occurrences starting 11/17/2022 until 12/17/2023 [facility] Work Phone: Comment on above: 1 Occurrences starting 11/17/2022 until 12/17/2023 Patient Education Chest Pain, Adult ED [facility] Work Phone: Patient referral [facility] Work Phone: SARS-CoV-2 (COVID-19 ) RNA [Presence] in Respiratory specimen by JOSÉ MIGUEL with probe detection SELF CHECK COVID Microbiology Routine Follow-up examination after colorectal surgery Ordered: 02/09/2022 [facility] Work Phone: Comment on above: Ordered: 02/09/2022 End: 11-30-2023 SIGMOIDOSCOPY SIGMOIDOSCOPY Endoscopy Routine Chronic idiopathic constipation 1 Occurrences starting 11/30/2022 until 11/30/2023 [facility] Work Phone: Comment on above: 1 Occurrences starting 11/30/2022 until 11/30/2023 SURG PATH REQUEST [facility] Comment on above: Release Upon Ordering for 1 Occurrences starting 04/12/2024, 1 completed End: 08-12-2023 Troponin I.cardiac [Mass/volume] in Serum or Plasma Troponin I (One time) Lab Timed Once for 1 Occurrences starting 08/12/2023 until 08/12/2023 [facility] Work Phone: Comment on above: Once for 1 Occurrences starting 08/12/20 until 08/12/2023 URODYNAMICS WHI URODYNAMICS WHI Procedures Routine Incomplete bladder emptying Urinary urgency Urinary frequency Nocturia Ordered: 07/31/2023 [facility] Work Phone: Comment on above: Ordered: 07/31/2023 [facility] Immunizations Immunization Date Immunization Notes Care Provider [facility] 07-01-2024 influenza, injectabl e, madin shaneka canine kidney, preservative free Ron King STEWARD/STEWARDESS NIGHT Work Phone: [facility] 05-21-2024 Hepatitis B vaccine (recombinant), CpG adjuvanted Ron King STEWARD/STEWARDESS NIGHT Work Phone: [facility] 05-21-2024 meningococcal oligosaccharide (groups A, C, Y and W-135) diphtheria toxoid conjugate vaccine (MCV4O) Ron King STEWARD/STEWARDESS NIGHT Work Phone: [facility] 04-05-2024 zoster vaccine recombinant Ron King STEWARD/STEWARDESS NIGHT Work Phone: [facility] 04-05-2024 zoster vaccine, unspecified formulation Milagros Franco MD, PhD Work Phone: [facility] 12-21-2023 Influenza, injectabl e, Madin Shaneka Canine Kidney, preservative free, quadrivalent Ron King STEWARD/STEWARDESS NIGHT Work Phone: [facility] 12-21-2023 influenza virus vaccine, unspecified formulation Isra Masters DO Work Phone: [facility] 08-17-2022 influenza, injectabl e, quadrivalent, preservative free Ron King STEWARD/STEWARDESS NIGHT Work Phone: [facility] 08-17-2022 influenza virus vaccine, unspecified formulation Nelsy Katya [employer]OWANELECT[employer]ICAL JOURNEYMAN Work Phone: [facility] 11-24-2021 Pfizer-BioNTech COVID-19 Vacc 30 MCG/0.3ML Intramuscular Suspension Eliceo R Stephonjeromean Work Phone: [facility] [employer] DO Work Phone: 08-19-2021 KENALOG - 10 mg Erica Dymon d Other [employer] Other 05-11-2021 Pfizer-BioNTech COVID-19 Vacc 30 MCG/0.3ML Intramuscular Suspension Eliceo R Stephonleigha Work Phone: [facility] [employer] [address] DO Work Phone: 05-10-2021 Pfizer Purple Cap SARS-CoV-2 Vaccination Ron King STEWARD/STEWARDESS NIGHT Work Phone: [facility] 04-20-2021 Pfizer-BioNTech COVID-19 Vacc 30 MCG/0.3ML Intramuscular Suspension Eliceo R Stephonjerometomasa Work Phone: [facility] [employer] DO Work Phone: 04-19-2021 Pfizer Purple Cap SARS-CoV-2 Vaccination Ron King STEWARD/STEWARDESS NIGHT Work Phone: [facility] 09-02-2020 influenza, injectabl e, quadrivalent, preservative free Eliceo Ellis Stephonjerometomasa [facility] Work Phone: 08-06-2020 influenza, injectabl e, quadrivalent, preservative free Eliceo R Stephonjeromean Work Phone: [facility] 06-22-2020 tetanus toxoid, redu nayeli diphtheria toxoid, and acellular pertussis vaccine, adsorbed Eliceo R Stephonjerometomasa Work Phone: [facility] Work Phone: 02-01-2020 Toradol per 15 mg Beto turpin Other [employer] Other 08-20-2019 influenza, injectabl e, quadrivalent, preservative free Ron Fernando STEWARD/STEWARDESS NIGHT Work Phone: [facility] 07-15-2018 influenza, seasonal, injectable, preservative free Eliceo R Stephonftan Work Phone: [employer] [facility] [employer] DO Work Phone: 07-14-2016 Rocephin 500 mg Beto ellis Other [employer] Other 05-12-2008 hepatitis B vaccine, adult dosage Eliceo R Stephonftan Work Phone: [facility] [employer] DO Work Phone: 04-11-2008 hepatitis B vaccine, adult dosage Eliceo R Hernandezan Work Phone: [employer] DO Work Phone: Payers Date Payer Category Payer Medicare MEDICARE HUMANA HMO PPO MEDICARE HU[employer]NA HMO PPO [id number] 2024-Present [address] [place] [address] [id number] 2024 Medicare (Managed Care) HUMANA M EDICARE ADVANTAGE [id number] 2024 Medicare [id number] 2024 Private Health Insurance 2023 Self-pay [id number] 2022 Unknown 2021 Medicaid [employer] MED[employer] ID [employer]VANTAGE MEDICAID [id number] 2021-Present [phone] [address] [place] [address] Medicaid [id number] 2019 Medicaid [id number]. [id number]. [id number] 1972 Unknown [id number] 2.16.840.1.975183.3.579.2. 176 1972 Unknown [id number] 2.16.840.1.299955.3.579.2. 593 1972 Unknown [id number] 2.16.840.1.883080.3.579.2. 593 1972 Unknown [id number] 2.16.840.1.250334.3.579.2. 593 1972 Unknown [id number] 2.16.840.1.007647.3.579.2. 593 1972 Unknown [id number] 2.16.840.1.111915.3.579.2. 593 1972 Unknown [id number] 2.16.840.1.252878.3.579.2. 593 1972 Unknown [id number] 2.16.840.1.030495.3.579.2. 593 1972 Unknown [id number] 2.16.840.1.728710.3.579.2. 593 1972 Unknown [id number] 2.16.840.1.861366.3.579.2. 593 1972 Unknown [id number] 2.16.840.1.223101.3.579.2. 593 1972 Unknown [id number] 2.16.840.1.853244.3.579.2. 593 1972 Unknown [id number] 2.16.840.1.349837.3.579.2. 593 1972 Unknown [id number] 2.16.840.1.638927.3.579.2. 593 1972 Unknown [id number] 2.16.840.1.815842.3.579.2. 593 1972 Unknown [id number] 2.16.840.1.590484.3.579.2. 593 1972 Unknown [id number] 2.16.840.1.065644.3.579.2. 593 1972 Unknown [id number] 2.16.840.1.036635.3.579.2. 593 1972 Unknown [id number] 2.16.840.1.879318.3.579.2. 297 1972 Unknown [id number] 2.16.840.1.046096.3.579.2. 297 1972 Unknown [id number] 2.16.840.1.546358.3.579.2. 356 1972 Unknown [id number] 2.16.840.1.982130.3.579.2. 356 1972 Unknown [id number] 2.16.840.1.808262.3.579.2. 356 1972 Unknown [id number] 2.16.840.1.589046.3.579.2. 1286 1972 Unknown [id number] 2.16.840.1.111046.3.579.2. 1286 1972 Unknown [id number] 2.16.840.1.306743.3.579.2. 1286 1972 Unknown [id number] 2.16.840.1.728589.3.579.2. 1285 1972 Unknown [id number] 2.16.840.1.868789.3.579.2. 1285 1972 Unknown [id number] 2.16.840.1.108801.3.579.2. 1285 1972 Unknown [id number] 2.16.840.1.441877.3.579.2. 1285 1972 Unknown [id number] 2.16.840.1.444919.3.579.2. 1285 1972 Unknown [id number] 2.16.840.1.447431.3.579.2. 1972 Unknown [id number] 2.16.840.1.721946.3.579.2. 1972 Unknown [id number] 2.16.840.1.447267.3.579.2. 1972 Unknown [id number] 2.16.840.1.414766.3.579.2. 1972 Unknown [id number] 2.16.840.1.907122.3.579.2. 1972 Unknown [id number] 2.16.840.1.386915.3.579.2. 1972 Unknown [id number] 2.16.840.1.415677.3.579.2. 1972 Unknown [id number] 2.16.840.1.671517.3.579.2. 1972 Unknown [id number] 2.16.840.1.779075.3.579.2. 1972 Unknown [id number] 2.16.840.1.262783.3.579.2. 1972 Unknown [id number] 2.16.840.1.604341.3.579.2. 1972 Unknown [id number] 2.16.840.1.142834.3.579.2. 196 1972 Unknown [id number] 2.16.840.1.699779.3.579.2. 196 1972 Unknown [id number] 2.16.840.1.069005.3.579.2. 594 1972 Unknown [id number] 2.16840.1.247136.3.579.2. 594 1972 Unknown [id number] 2.16840.1.335572.3.579.2. 594 1972 Unknown [id number] 2.840.1.092441.3.579.2. 594 1972 Unknown [id number] 2.840.1.601771.3.579.2. 594 1972 Unknown [id number] 2.840.1.522410.3.579.2. 594 1972 Unknown [id number] 2.840.1.998152.3.579.2. 594 1972 Unknown [id number] 2.16840.1.336977.3.579.2. 9 1972 Unknown [id number] 2.16840.1.143896.3.579.2. 1258 1972 Unknown [id number] 2.840.1.189377.3.579.2. 1258 1972 Unknown [id number] 2.16840.1.349953.3.579.2. 1258 1972 Unknown [id number] 2.16840.1.797350.3.579.2. 1258 1972 Unknown [id number] 2.16840.1.778996.3.579.2. 9 1972 Unknown [id number] 2.16840.1.599592.3.579.2. 1251972 Unknown [id number] 2.16.840.1.701276.3.579.2. 1258 1972 Unknown [id number] 2.16840.1.637222.3.579.2. 1258 1972 Unknown [id number] 2.16.840.1.986761.3.579.2. 1258 1972 Unknown [id number] 2.840.1.992569.3.579.2. 1258 1972 Unknown [id number] 2.840.1.639417.3.579.2. 1258 1972 Unknown [id number] 2.840.1.094260.3.579.2. 1258 1972 Unknown [id number] 2.840.1.244350.3.579.2. 1258 1972 Unknown [id number] 2.840.1.223790.3.579.2. 1258 1972 Unknown [id number] 2.840.1.066860.3.579.2. 1258 1972 Unknown [id number] 2.840.1.879703.3.579.2. 1258 1972 Unknown [id number] 2.840.1.543327.3.579.2. 1258 1972 Unknown [id number] 2.840.1.604646.3.579.2. 1258 1972 Unknown [id number] 2.840.1.426242.3.579.2. 1258 1972 Unknown [id number] 2.16840.1.910064.3.579.2. 1258 1972 Unknown [id number] 2.16840.1.155140.3.579.2. 1258 1972 Unknown [id number] 2.16840.1.788755.3.579.2. 1259 1972 Unknown [id number] 2.16.840.1.696640.3.579.2. 1258 1972 Unknown [id number] 2.16.840.1.554535.3.579.2. 1258 1972 Unknown [id number] 2.16.840.1.018010.3.579.2. 1258 1972 Unknown [id number] 2.16.840.1.607581.3.579.2. 1258 1972 Unknown [id number] 2.16.840.1.681531.3.579.2. 1258 1972 Unknown [id number] 2.16.840.1.707470.3.579.2. 1258 1972 Unknown [id number] 2.16.840.1.422816.3.579.2. 1258 1972 Unknown [id number] 2.16.840.1.606770.3.579.2. 1258 1972 Unknown [id number] 2.16.840.1.109406.3.579.2. 1258 1972 Unknown [id number] 2.16.840.1.247926.3.579.2. 9 1959 Medicaid [id number] 1959 Unknown [id number] Unknown [facility] [id number] Unknown [id number] 2.16.840.1.286127.3.579.2. 531 Unknown [id number] 2.16840.1.418170.3.579.2. 531 Unknown [id number] 2.16.840.1.286299.3.579.2. 531 Unknown [id number] 2.16.840.1.600729.3.579.2. 531 Social History Date Type Detail Facility Start: 10-08-2020 End: 04-04-2023 Tobacco smoking status NHIS Never smoked tobacco [facility] Start: 10-08-2020 End: 04-04-2023 Tobacco use and exposure Smokeless tobacco non-user [facility] Start: 01-04-2022 End: 09-27-2024 Alcohol intake Lifetime non-drinker (finding) [facility] Start: 10-08-2020 History SDOH Alcohol Frequency 1 [facility] Start: 1970 Sex Assigned At Female C [facility] Start: 08-30-2020 End: 07-26-2022 Exposure to SARS-CoV-2 (event) Not sure [facility] Start: 10-08-2020 End: 05-01-2024 Sex Assigned At [facility] Start: 10-08-2020 End: 05-01-2024 No alcohol use No alcohol use [facility] Comment on above: 3 TEA WEEK; How often to you hav e a drink containing alcohol? Never [facility] Average Number of Drinks Not on file [facility] Start: 07-28-2020 Gender identity Identifies as female gender (finding) [facility] Start: 07-03-2021 Sexual orientation Heterosexual (fin quintin) [facility] Start: 06-05-2023 End: 06-05-2023 Tobacco smoking status NHIS Smoker (finding) [facility] Start: 1970 Sex Assigned At Not on file [facility] Start: 10-23-2023 End: 01-10-2024 Alcohol intake Ex-drinker (finding) [facility] Tobacco smoking stat us PAIS Tobacco smoking consumption unknown [facility] Within the last year , have you been afraid of your partner or ex-partner? No [facility] Are you now , , , , never or living with a partner? [facility] How hard is it for y ou to pay for the very basics like food, housing, medical care, and heating Somewhat hard [facility] Do you feel stress - tense, restless, nervous, or anxious, or unable to sleep at night because your mind is troubled all the time - these days [OSQ] Rather much [facility] (I/We) worried kristal er (my/our) food would run out before (I/we) got money to buy more. Sometimes true [facility] Start: 10-24-2023 Alcohol Comment caffeine: 1-2 cups per day [facility] Start: 09-16-2024 Sex Female (finding) [facility] Medical Equipment Procedure Code Equipment Code Equipment Original Text Equipment Identifier Dates Fibertak [place] Self-Punching Knotless 2.6mm W/No 5 Suture [id number] Start: 10-14-2020 Fibertak [place] Knotless 2.6mm [id number] Start: 10-14-2020 [place] Swivelock C 4.75mm Biocomposite Peek 19.1mm Suture Closed Eyelet - [id number] Start: 10-14-2020 Sling Gynecare T vt Exact Gynecological Stress Urinary Incontinence - [id number] Start: 12-24-2021 DISC CERVICAL 13 X15X5H MOBI-C FDA Start: 09-20-2017 DISC CERVICAL 13 X15X5H MOBI-C FDA Start: 09-20-2017 DISC CERVICAL 13 X15X5H MOBI-C FDA Start: 09-20-2017 DISC CERVICAL 13 X15X5H MOBI-C FDA Start: 09-20-2017 DISC CERVICAL 13 X15X5H MOBI-C FDA Start: 09-20-2017 Generator Nrstm - [id number] Start: 01-02-2024 Lead Ns Respirat ory - [id number] Start: 01-02-2024 Lead Nrstm Inspr 3 Elect Cuf Tnl Boni Strl Lf - [id number] - [id number] Start: 01-02-2024 Lead Intrstim Mr i 28cm - [id number] Start: 01-26-2024 Interstim X Rech arge Free Neurostimulator - [id number] Start: 01-26-2024 DISC CERVICAL 13 X15X5H MOBI-C FDA Start: 09-20-2017 DISC CERVICAL 13 X15X5H MOBI-C FDA Start: 09-20-2017 DISC CERVICAL 13 X15X5H MOBI-C FDA Start: 09-20-2017 Clinical Notes 10-27-2020 to 09-27-2024 Wendy Colon MA - 09/27/2024 11:45 AM Lacie King NP - 09/26/2024 4:20 PM Indira Colon MA - 09/24/2024 8:15 AM Indira Colon MA - 09/04/2024 3:15 PM EDTPatient Instructions Note Date & Type Note Facility 09-27-2024 History of Present illness Narrative Images from the original note were not included. Dipti Acevedo, Obstetrics and Gynecology Mary Leal 1970 09/27/24 [id number] Exam Chief Complaint Patient presents with Follow-up [place] silver nitrate 09/24 for granulation. States bright red bleeding Monday after intercourse. Not actively bleeding since then. Visit Vitals OB Status Hysterectomy Smoking Status Never OB History Para Term AB Living 4 4 4 SAB IAB Ectopic Multiple Live Births 4 # Outcome Date GA Lbr Jorge/2nd Weight Sex Type Anes PTL Lv 4 Para 7 lb 10 oz Vag-Spont ROHITH 3 Para 7 lb 4 oz Vag-Spont ROHITH 2 Para 6 lb 12 oz Vag-Spont ROHITH 1 Para 8 lb 14 oz Vag-Spont ROHITH Current Outpatient Medications Medication Sig Dispense Refill Abilify Maintena 300 MG injection syringe inject INTRAMUSCULARLY ONCE A MONTH (BRING TO OFFICE FOR PROVIDER TO ADMINISTER) albuterol HFA 90 mcg/act inhaler Inhale 2 puffs every 4 (four) hours if needed for wheezing atenolol (Tenormin) 50 MG tablet Take 1 tablet (50 mg) by mouth Daily 90 tablet 1 cholecalciferol (Vitamin D-3) 125 MCG (5000 UT) capsule Take 125 mcg by mouth Daily Daridorexant HCl (Quviviq) 50 MG tablet Take 50 mg by mouth at bedtime estradiol (Estrace) 0.1 MG/GM vaginal cream Apply 0.5g vaginally twice weekly. 42.5 g 1 estradiol (Estrace) 1 MG tablet Take 1 tablet (1 mg) by mouth Daily 90 tablet 3 ferrous sulfate 325 (65 Fe) MG tablet Take 325 mg by mouth every other day galcanezumab (Emgality) 120 MG/ML auto-injector Inject 120 mg under the skin every 30 (thirty) days L-Theanine 200 MG capsule Take 1 capsule by mouth Daily losartan (Cozaar) 25 MG tablet Take 1 tablet (25 mg) by mouth Daily 30 tablet 11 methylphenidate ER (Concerta) 54 MG CR tablet Take 54 mg by mouth Daily mirabegron ER (Myrbetriq) 50 MG 24 hr tablet Take 1 tablet (50 mg) by mouth at bedtime Do not crush, chew, or split. 30 tablet 11 omeprazole (PriLOSEC) [address] capsule Take 40 mg by mouth in the morning. rOPINIRole (Requip) 1 MG tablet Take 1 tablet (1 mg) by mouth in the morning. 90 tablet 1 rOPINIRole (Requip) 2 MG tablet Take 1 tablet (2 mg) by mouth at bedtime 90 tablet 1 traMADol (Ultram) 50 MG tablet Take 1 tablet (50 mg) by mouth every 6 (six) hours if needed for severe pain for up to 5 days 15 tablet 0 Trelegy Ellipta 100-62.5-25 MCG/ACT aerosol powder INHALE 1 PUFF BY MOUTH DAILY 60 each 1 triamcinolone (Kenalog) 0.1 % cream Apply topically 2 (two) times a day 45 g 0 No current facility-administered medications for this visit. Allergies Allergen Reactions Risperidone Other Reaction(s): breast discharge Poison Brenda Extract Rash Past Surgical History: Procedure Laterality Date ANTERIOR CRUCIATE LIGAMENT REPAIR 2011 APPENDECTOMY 1988 BACK SURGERY 09/20/2017 C5-6 removed BLADDER SUSPENSION BUNIONECTOMY Bilateral CARPAL TUNNEL RELEASE Right COLECTOMY 03/28/2022 Ileostomy and then total colectomy with ileorectal anastomosis for atonic colon COLONOSCOPY 03/2020 CYSTOCELE REPAIR 12/24/2021 ilestomy placement, pelvic floor wall, cystocele, rectocele, bowel straightening- small bowel placed on rectum FOOT SURGERY Right 10/2022 FOOT SURGERY 03/2019 plantar fascitis band revision FOOT SURGERY Left 07/18/2019 tarsel tunnel FOOT SURGERY Left 06/2020 reconstruction FOOT TENDON SURGERY 11/13/2023 HYSTERECTOMY 2014 LAVH BS INTRAUTERINE DEVICE INSERTION 2013 Mirena OTHER SURGICAL HISTORY scar tissue removed from tonsils ROTATOR CUFF REPAIR Right 10/2016 SPINE SURGERY 2017 TONSILLECTOMY 02/11/2021 TUBAL LIGATION Bilateral 2006 Past Medical History: Diagnosis Date ADHD (attention deficit hyperactivity disorder) (CMS/HCC) 1994 Asthma (CMS/HCC) Basal cell carcinoma right chest Colon polyp Compressed cervical disc Cystocele 2021 Depression (CMS/HCC) Difficulty walking 05/12/23 Eczema 2022 Endometriosis 2015 Fissure, anal Gastroparesis GERD (gastroesophageal reflux disease) 1994 Hormone disorder 2019 Hypertension ([facility]) 1999 Migraine ([facility]) OCD (obsessive compulsive disorder) ([facility]) Panic attack ([facility]) 04/28 Rectocele 2021 RLS (restless legs syndrome) Urinary incontinence 2022 Varicella 1984 Visual impairment 2010 ROS See HPI EXAM GENERAL EXAMINATION alert oriented well developed, well nourished. 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 Granulation on edge of R vaginal corner of cuff and few on posterior wall 1-2 mm AgNO3 applied to the area EXTREMITIES no edema. In stockings NEUROLOGIC: alert and oriented. PSYCH: cooperative with exam. ICD-10-CM 1. PCB (post coital bleeding) N93.0 2. Granulation tissue L92.9 She voiced had blood on vault post coital on rag after wiping. Was painful during intercourse. Discussed hymen, make sure well lubricated. No blood in vault today. Educated on granulation steve fleming, her hysterectomy was 2014. If granulation continues to be bothersome may need to return for surgical excision under anesthesia for revision of R vaginal cuff and possible excision of hymenal remnant. Entered by Wendy Colon MA acting as scribe for Dr. Dipti Acevedo. Signature Wendy Colon MA Date 09/27/24 . Time 11:49 AM . The documentation recorded by the scribe accurately reflects the service(s) I personally performed and the decisions I made. Signature Mario AcevedoDDelilah. Date 09/27/24 Time 5:00PM. documented in this encounter [facility] 09-26-2024 History of Present illness Narrative Images from the original note were not included. SUBJECTIVE: Mary Leal is a 54 y.o. female presents with chief complaint of No chief complaint on file. Pt presents today for generalize body aches (neck, shoulders, back, feet). Pt states she has cervical stenosis and she is unable to get the MRI done until 10/10. Her neuro surgeon told her to come to PCP to see what can be done in the mean time. Pt is seeing Dr Medrano She has been taking 4000 mg of tylenol and 1600 mg of ibuprofen daily. She is not sleeping well bc of the pain. Has tried Celebrex and Mobic in the past without relief. She as been given Lyrica also but does not like how that makes her feel, giving her some brain fog. Notes she is also getting a lumbar MRI the same day as her cervical MRI. And she is getting an EMG done the next day. Review of Systems: Review of Systems All other systems reviewed and are negative. Current Medications: Current Outpatient Medications on File Prior to Visit Medication Sig Dispense Refill Nimolirupal Maintena 300 MG injection syringe inject INTRAMUSCULARLY ONCE A MONTH (BRING TO OFFICE FOR PROVIDER TO ADMINISTER) albuterol HFA 90 mcg/act inhaler Inhale 2 puffs every 4 (four) hours if needed for wheezing atenolol (Tenormin) 50 MG tablet Take 1 tablet (50 mg) by mouth Daily 90 tablet 1 cholecalciferol (Vitamin D-3) 125 MCG (5000 UT) capsule Take 125 mcg by mouth Daily Daridorexant HCl (Quviviq) 50 MG tablet Take 50 mg by mouth at bedtime estradiol (Estrace) 0.1 MG/GM vaginal cream Apply 0.5g vaginally twice weekly. 42.5 g 1 estradiol (Estrace) 1 MG tablet Take 1 tablet (1 mg) by mouth Daily 90 tablet 3 ferrous sulfate 325 (65 Fe) MG tablet Take 325 mg by mouth every other day galcanezumab (Emgality) 120 MG/ML auto-injector Inject 120 mg under the skin every 30 (thirty) days L-Theanine 200 MG capsule Take 1 capsule by mouth Daily losartan (Cozaar) 25 MG tablet Take 1 tablet (25 mg) by mouth Daily 30 tablet 11 methylphenidate ER (Concerta) 54 MG CR tablet Take 54 mg by mouth Daily omeprazole (PriLOSEC) [address] capsule Take 40 mg by mouth in the morning. rOPINIRole (Requip) 1 MG tablet Take 1 tablet (1 mg) by mouth in the morning. 90 tablet 1 rOPINIRole (Requip) 2 MG tablet Take 1 tablet (2 mg) by mouth at bedtime 90 tablet 1 Trelegy Ellipta 100-62.5-25 MCG/ACT aerosol powder INHALE 1 PUFF BY MOUTH DAILY 60 each 1 triamcinolone (Kenalog) 0.1 % cream Apply topically 2 (two) times a day 45 g 0 mirabegron ER (Myrbetriq) 50 MG 24 hr tablet Take 1 tablet (50 mg) by mouth at bedtime Do not crush, chew, or split. 30 tablet 11 [DISCONTINUED] baclofen (Lioresal) 10 MG tablet Take 10 mg by mouth Daily (Patient not taking: Reported on 09/26/2024) [DISCONTINUED] busPIRone (Buspar) 5 MG tablet Take 1 tablet (5 mg) by mouth in the morning and 1 tablet (5 mg) before bedtime. (Patient not taking: Reported on 09/26/2024) 60 tablet 2 [DISCONTINUED] cetirizine (ZyrTEC) 10 MG tablet TAKE 1 TABLET BY MOUTH EVERY DAY (Patient not taking: Reported on 09/26/2024) 30 tablet 1 [DISCONTINUED] ibuprofen 800 MG tablet Take 800 mg by mouth 3 (three) times a day as needed for moderate pain or mild pain (Patient not taking: Reported on 09/26/2024) [DISCONTINUED] Multiple Vitamin (Multivitamin Adult) tablet Take 1 tablet by mouth in the morning. (Patient not taking: Reported on 09/26/2024) No current facility-administered medications on file prior to visit. I have reviewed and reconciled the history and medication list with the patient today. Problem List: Patient Active Problem List Diagnosis Abnormal mammogram ADD (attention deficit disorder) without hyperactivity Allergic rhinitis Anxiety Asthma (CMS/HCC) Atopic dermatitis Basal cell carcinoma (BCC) of chest Bipolar affective disorder, most recent episode mixed (CMS/HCC) Degenerative disc disease, cervical Facet arthritis of cervical region Gastro-esophageal reflux disease without esophagitis Gastroparesis Hot flashes due to menopause Hyperlipidemia (CMS/HCC) Hypertension (CMS/HCC) Insomnia Mood swing Restless legs syndrome Tarsal tunnel syndrome Tension headache Vitamin D deficiency Arthritis B12 deficiency Bipolar 1 disorder (CMS/HCC) Chronic cluster headache, not intractable Chronic idiopathic constipation Chronic interstitial cystitis Genitourinary syndrome of menopause Incontinence Migraine (CMS/HCC) CHUCKIE (obstructive sleep apnea) Other fatigue Overactive bladder S/P tonsillectomy S/P nasal septoplasty Sleep disturbance RUQ pain Osteoarthritis of right foot Presence of right artificial ankle joint Primary localized osteoarthrosis of ankle and foot History of stress fracture Presence of functional implant, unspecified Weight loss Heat intolerance Arthritis of left foot Arthritis of right acromioclavicular joint Chronic pelvic pain in female Chronic sinusitis Chronic tonsillitis Cough Daytime hypersomnia Dysuria Follow-up examination after colorectal surgery JOLEEN (generalized anxiety disorder) ([facility]) Headache History of 2018 novel coronavirus disease (COVID-19) Impingement syndrome of right shoulder Increased frequency of urination Lingual tonsil hypertrophy Major depressive disorder, recurrent, moderate ([facility]) Nasal congestion Nausea Partial nontraumatic rupture of right rotator cuff Poor urinary stream Stress incontinence in female Unspecified inflammatory spondylopathy, cervical region ([facility]) Urinary urgency Wheezing Pain due to internal orthopedic prosthetic devices, implants and grafts, initial encounter ([facility]) Belching Past Medical History: Past Medical History: Diagnosis Date ADHD (attention deficit hyperactivity disorder) ([facility]) 1994 Asthma ([facility]) Basal cell carcinoma right chest Colon polyp Compressed cervical disc Cystocele 2021 Depression ([facility]) Difficulty walking 05/12/23 Eczema 2022 Endometriosis 2014 Fissure, anal Gastroparesis GERD (gastroesophageal reflux disease) 1994 Hormone disorder 2019 Hypertension ([facility]) 2000 Migraine ([facility]) OCD (obsessive compulsive disorder) ([facility]) Panic attack ([facility]) 04/28 Rectocele 2021 RLS (restless legs syndrome) Urinary incontinence 2022 Varicella 1984 Visual impairment 2009 Family History: Family History Problem Relation Name Age of Onset Alzheimer's disease Mother Joanna Hypertension Mother Joanna Atrial fibrillation Father Dad Hypertension Father Dad Coronary artery disease Father Dad Heart failure Father Dad Allergies: Allergies Allergen Reactions Risperidone Other Reaction(s): breast discharge Poison Brenda Extract Rash Surgical History: Past Surgical History: Procedure Laterality Date ANTERIOR CRUCIATE LIGAMENT REPAIR 2011 APPENDECTOMY 1988 BACK SURGERY 09/20/2017 C5-6 removed BLADDER SUSPENSION BUNIONECTOMY Bilateral CARPAL TUNNEL RELEASE Right COLECTOMY 03/28/2022 Ileostomy and then total colectomy with ileorectal anastomosis for atonic colon COLONOSCOPY 03/2020 CYSTOCELE REPAIR 12/24/2021 ilestomy placement, pelvic floor wall, cystocele, rectocele, bowel straightening- small bowel placed on rectum FOOT SURGERY Right 10/2022 FOOT SURGERY 03/2019 plantar fascitis band revision FOOT SURGERY Left 07/18/2019 tarsel tunnel FOOT SURGERY Left 06/2020 reconstruction FOOT TENDON SURGERY 11/13/2023 HYSTERECTOMY 2015 [facility] INTRAUTERINE DEVICE INSERTION 2013 Mirena OTHER SURGICAL HISTORY scar tissue removed from tonsils ROTATOR CUFF REPAIR Right 10/2016 SPINE SURGERY 2017 TONSILLECTOMY 02/11/2021 TUBAL LIGATION Bilateral 2006 Social History: Social Drivers of Health Tobacco Use: Low Risk (09/26/2024) Patient History Smoking Tobacco Use: Never Smokeless Tobacco Use: Never Passive Exposure: Not on file Alcohol Use: Not At Risk (06/12/2024) AUDIT-C Frequency of Alcohol Consumption: Never Average Number of Drinks: Patient does not drink Frequency of Binge Drinking: Never Financial Resource Strain: Medium Risk (05/01/2024) Overall Financial Resource Strain (CARDIA) Difficulty of Paying Living Expenses: Somewhat hard Food Insecurity: Food Insecurity Present (05/01/2024) Hunger Vital Sign Worried About Running Out of Food in the Last Year: Sometimes true Ran Out of Food in the Last Year: Sometimes true Transportation Needs: No Transportation Needs (05/01/2024) PRAPARE - Transportation Lack of Transportation (Medical): No Lack of Transportation (Non-Medical): No Physical Activity: Insufficiently Active (05/01/2024) Exercise Vital Sign Days of Exercise per Week: 2 days Minutes of Exercise per Session: 10 min Stress: Stress Concern Present (05/01/2024) [employer] - Occupational Stress Questionnaire Feeling of Stress : Rather much Social Connections: Socially Isolated (05/01/2024) Social Connection and Isolation Panel [NHANES] Frequency of Communication with Friends and Family: More than three times a week Frequency of Social Gatherings with Friends and Family: More than three times a week Attends Mosque Services: Never Active Member of Clubs or Organizations: No Attends Club or Organization Meetings: Never Marital Status: Intimate Partner Violence: Not At Risk (06/23/2023) [facility] Safety Threatened: Not on file Insulted: Not on file Physically Hurt : Not on file Scream: Not on file Depression: Not at risk (07/11/2024) PHQ-2 PHQ-2 Score: 0 Housing Stability: Low Risk (05/01/2024) Housing Stability Vital Sign Unable to Pay for Housing in the Last Year: No Number of Times Moved in the Last Year: 1 Homeless in the Last Year: No Health Literacy: Adequate Health Literacy (05/01/2024) B1300 Health Literacy Frequency of need for help with medical instructions: Never OBJECTIVE: Visit Vitals BP 142/90 Pulse 85 Temp 97.5 F Ht 5' 4 Wt 155 lb 3.2 oz SpO2 99% BMI 26.64 kg/m OB Status Hysterectomy Smoking Status Never BSA 1.78 m Physical Exam Constitutional: Appearance: Normal appearance. HENT: Head: Normocephalic and atraumatic. Eyes: Extraocular Movements: Extraocular movements intact. Cardiovascular: Rate and Rhythm: Normal rate and regular rhythm. Heart sounds: Normal heart sounds. Pulmonary: Effort: Pulmonary effort is normal. Breath sounds: Normal breath sounds. No wheezing, rhonchi or rales. Musculoskeletal: Cervical back: Neck supple. Lymphadenopathy: Cervical: No cervical adenopathy. Skin: General: Skin is warm and dry. Neurological: General: No focal deficit present. Mental Status: She is alert and oriented to person, place, and time. Psychiatric: Mood and Affect: Mood normal. Behavior: Behavior normal. Judgment: Judgment normal. ASSESSMENT AND PLAN: Assessment/Plan Diagnoses and all orders for this visit: Degenerative disc disease, cervical (Primary) - traMADol (Ultram) 50 MG tablet; Take 1 tablet (50 mg) by mouth every 6 (six) hours if needed for severe pain for up to 5 days New meds as needed. Advised not to take while working or operating heavy machinery. Keep appts with neurosurgery for further care and treatment. Follow up if symptoms worsen or fail to improve. documented in this encounter [facility] 09-24-2024 History of Present illness Narrative Images from the original note were not included. Dipti Acevedo, DO Obstetrics and Gynecology Mary Leal 1970 09/24/24 [id number] Exam Chief Complaint Patient presents with Gynecologic Exam C/o bleeding after intercourse. LMP: LAVH BS 2014. Visit Vitals OB Status Hysterectomy Smoking Status Never OB History Para Term AB Living 4 4 4 SAB IAB Ectopic Multiple Live Births 4 # Outcome Date GA Lbr Jorge/2nd Weight Sex Type Anes PTL Lv 4 Para 7 lb 10 oz Vag-Spont ROHITH 3 Para 7 lb 4 oz Vag-Spont ROHITH 2 Para 6 lb 12 oz Vag-Spont ROHITH 1 Para 8 lb 14 oz Vag-Spont ROHITH Current Outpatient Medications Medication Sig Dispense Refill Lolis Maintena 300 MG injection syringe inject INTRAMUSCULARLY ONCE A MONTH (BRING TO OFFICE FOR PROVIDER TO ADMINISTER) albuterol HFA 90 mcg/act inhaler Inhale 2 puffs every 4 (four) hours if needed for wheezing atenolol (Tenormin) 50 MG tablet Take 1 tablet (50 mg) by mouth Daily 90 tablet 1 baclofen (Lioresal) 10 MG tablet Take 10 mg by mouth Daily busPIRone (Buspar) 5 MG tablet Take 1 tablet (5 mg) by mouth in the morning and 1 tablet (5 mg) before bedtime. 60 tablet 2 cetirizine (ZyrTEC) 10 MG tablet TAKE 1 TABLET BY MOUTH EVERY DAY 30 tablet 1 cholecalciferol (Vitamin D-3) 125 MCG (5000 UT) capsule Take 125 mcg by mouth Daily Daridorexant HCl (Quviviq) 50 MG tablet Take 50 mg by mouth at bedtime estradiol (Estrace) 0.1 MG/GM vaginal cream Apply 0.5g vaginally twice weekly. 42.5 g 1 estradiol (Estrace) 1 MG tablet Take 1 tablet (1 mg) by mouth Daily 90 tablet 3 ferrous sulfate 325 (65 Fe) MG tablet Take 325 mg by mouth every other day galcanezumab (Emgality) 120 MG/ML auto-injector Inject 120 mg under the skin every 30 (thirty) days ibuprofen 800 MG tablet Take 800 mg by mouth 3 (three) times a day as needed for moderate pain or mild pain L-Theanine 200 MG capsule Take 1 capsule by mouth Daily losartan (Cozaar) 25 MG tablet Take 1 tablet (25 mg) by mouth Daily 30 tablet 11 methylphenidate ER (Concerta) 54 MG CR tablet Take 54 mg by mouth Daily mirabegron ER (Myrbetriq) 50 MG 24 hr tablet Take 1 tablet (50 mg) by mouth at bedtime Do not crush, chew, or split. 30 tablet 11 Multiple Vitamin (Multivitamin Adult) tablet Take 1 tablet by mouth in the morning. omeprazole (PriLOSEC) [address] capsule Take 40 mg by mouth in the morning. rOPINIRole (Requip) 1 MG tablet Take 1 tablet (1 mg) by mouth in the morning. 90 tablet 1 rOPINIRole (Requip) 2 MG tablet Take 1 tablet (2 mg) by mouth at bedtime 90 tablet 1 Trelegy Ellipta 100-62.5-25 MCG/ACT aerosol powder INHALE 1 PUFF BY MOUTH DAILY 60 each 1 triamcinolone (Kenalog) 0.1 % cream Apply topically 2 (two) times a day 45 g 0 No current facility-administered medications for this visit. Allergies Allergen Reactions Risperidone Other Reaction(s): breast discharge Poison Brenda Extract Rash Past Surgical History: Procedure Laterality Date ANTERIOR CRUCIATE LIGAMENT REPAIR 2011 APPENDECTOMY 1988 BACK SURGERY 09/20/2017 C5-6 removed BLADDER SUSPENSION BUNIONECTOMY Bilateral CARPAL TUNNEL RELEASE Right COLECTOMY 03/28/2022 Ileostomy and then total colectomy with ileorectal anastomosis for atonic colon COLONOSCOPY 03/2020 CYSTOCELE REPAIR 12/24/2021 ilestomy placement, pelvic floor wall, cystocele, rectocele, bowel straightening- small bowel placed on rectum FOOT SURGERY Right 10/2022 FOOT SURGERY 03/2019 plantar fascitis band revision FOOT SURGERY Left 07/18/2019 tarsel tunnel FOOT SURGERY Left 06/2020 reconstruction FOOT TENDON SURGERY 11/13/2023 HYSTERECTOMY 2015 [facility] INTRAUTERINE DEVICE INSERTION 2013 Mirena OTHER SURGICAL HISTORY scar tissue removed from tonsils ROTATOR CUFF REPAIR Right 10/2016 SPINE SURGERY 2017 TONSILLECTOMY 02/11/2021 TUBAL LIGATION Bilateral 2006 Past Medical History: Diagnosis Date ADHD (attention deficit hyperactivity disorder) ([facility]) 1994 Asthma ([facility]) Basal cell carcinoma right chest Colon polyp Compressed cervical disc Cystocele 2021 Depression ([facility]) Difficulty walking 05/12/23 Eczema 2022 Endometriosis 2015 Fissure, anal Gastroparesis GERD (gastroesophageal reflux disease) 1995 Hormone disorder 2019 Hypertension (CMS/HCC) 2000 Migraine (CMS/HCC) OCD (obsessive compulsive disorder) ([facility]) Panic attack ([facility]) 04/28 Rectocele 2021 RLS (restless legs syndrome) Urinary incontinence 2022 Varicella 1984 Visual impairment 2010 ROS See HPI EXAM GENERAL EXAMINATION alert oriented well developed, well nourished. HEAD: normocephalic atraumatic. EYES: sclera anicteric. EARS: no obvious hearing deficit. 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 Granulation on edge of R vaginal cuff and few on posterior wall 1-2 mm AgNO3 applied EXTREMITIES no edema. NEUROLOGIC: alert and oriented. PSYCH: cooperative with exam. ICD-10-CM 1. Granulation tissue L92.9 2. Hymen abnormality Q52.4 Discussed episode of bleeding after intercourse Monday. She voiced this is the second episode of bleeding, and had fresh blood with wiping. Silver nitrate was applied on examination today. She tolerated well. Educated on estradiol not being cause for weight gain, continue 1 mg daily. She is continuing Estradiol cream 0.5 g twice weekly vaginally. See if Silver nitrate helps if not would advise to have hymen defect excise and sutured in office. Entered by Wendy Colon MA acting as scribe for Dr. Dipti Acevedo. Signature Wendy Colon MA Date 09/24/24 . Time 8:03 AM . The documentation recorded by the scribe accurately reflects the service(s) I personally performed and the decisions I made. Signature Mario Acevedo D.O. Date 09/24/24 Time 5:00PM. documented in this encounter [facility] 09-04-2024 History of Present illness Narrative Images from the original note were not included. Dipti Acevedo, DO Obstetrics and Gynecology Mary Leal 1970 09/04/24 [id number] Exam Chief Complaint Patient presents with Follow-up C/o ongoing burning sensation when urinating and hot flushes. Using Estrace cream twice weekly as advised. Bladder Problem States waking up at night, feeling like she has to go but unable to start a stream, frequency, burning. Requested UA- negative. Visit Vitals OB Status Hysterectomy Smoking Status Never OB History Para Term AB Living 4 4 4 SAB IAB Ectopic Multiple Live Births 4 # Outcome Date GA Lbr Jorge/2nd Weight Sex Type Anes PTL Lv 4 Para 7 lb 10 oz Vag-Spont ROHITH 3 Para 7 lb 4 oz Vag-Spont ROHITH 2 Para 6 lb 12 oz Vag-Spont ROHITH 1 Para 8 lb 14 oz Vag-Spont ROHITH Current Outpatient Medications Medication Sig Dispense Refill Abilify Maintena 300 MG injection syringe inject INTRAMUSCULARLY ONCE A MONTH (BRING TO OFFICE FOR PROVIDER TO ADMINISTER) albuterol HFA 90 mcg/act inhaler Inhale 2 puffs every 4 (four) hours if needed for wheezing atenolol (Tenormin) 50 MG tablet Take 1 tablet (50 mg) by mouth Daily 90 tablet 1 baclofen (Lioresal) 10 MG tablet Take 10 mg by mouth Daily busPIRone (Buspar) 5 MG tablet Take 1 tablet (5 mg) by mouth in the morning and 1 tablet (5 mg) before bedtime. 60 tablet 2 cetirizine (ZyrTEC) 10 MG tablet TAKE 1 TABLET BY MOUTH EVERY DAY 30 tablet 1 cholecalciferol (Vitamin D-3) 125 MCG (5000 UT) capsule Take 125 mcg by mouth Daily Daridorexant HCl (Quviviq) 50 MG tablet Take 50 mg by mouth at bedtime estradiol (Estrace) 0.1 MG/GM vaginal cream Apply 0.5g vaginally twice weekly. 42.5 g 1 estradiol (Estrace) 1 MG tablet Take 1 tablet (1 mg) by mouth Daily 90 tablet 3 ferrous sulfate 325 (65 Fe) MG tablet Take 325 mg by mouth every other day galcanezumab (Emgality) 120 MG/ML auto-injector Inject 120 mg under the skin every 30 (thirty) days ibuprofen 800 MG tablet Take 800 mg by mouth 3 (three) times a day as needed for moderate pain or mild pain L-Theanine 200 MG capsule Take 1 capsule by mouth Daily losartan (Cozaar) 25 MG tablet Take 1 tablet (25 mg) by mouth Daily 30 tablet 11 methylphenidate ER (Concerta) 54 MG CR tablet Take 54 mg by mouth Daily mirabegron ER (Myrbetriq) 50 MG 24 hr tablet Take 1 tablet (50 mg) by mouth at bedtime Do not crush, chew, or split. 30 tablet 11 Multiple Vitamin (Multivitamin Adult) tablet Take 1 tablet by mouth in the morning. omeprazole (PriLOSEC) [address] capsule Take 40 mg by mouth in the morning. rOPINIRole (Requip) 1 MG tablet Take 1 tablet (1 mg) by mouth in the morning. 90 tablet 1 rOPINIRole (Requip) 2 MG tablet Take 1 tablet (2 mg) by mouth at bedtime 90 tablet 1 Trelegy Ellipta 100-62.5-25 MCG/ACT aerosol powder INHALE 1 PUFF BY MOUTH DAILY 60 each 1 triamcinolone (Kenalog) 0.1 % cream Apply topically 2 (two) times a day 45 g 0 No current facility-administered medications for this visit. Allergies Allergen Reactions Risperidone Other Reaction(s): breast discharge Poison Brenda Extract Rash Past Surgical History: Procedure Laterality Date ANTERIOR CRUCIATE LIGAMENT REPAIR 2011 APPENDECTOMY 1988 BACK SURGERY 09/20/2017 C5-6 removed BLADDER SUSPENSION BUNIONECTOMY Bilateral CARPAL TUNNEL RELEASE Right COLECTOMY 03/28/2022 Ileostomy and then total colectomy with ileorectal anastomosis for atonic colon COLONOSCOPY 03/2020 CYSTOCELE REPAIR 12/24/2021 ilestomy placement, pelvic floor wall, cystocele, rectocele, bowel straightening- small bowel placed on rectum FOOT SURGERY Right 10/2022 FOOT SURGERY 03/2019 plantar fascitis band revision FOOT SURGERY Left 07/18/2019 tarsel tunnel FOOT SURGERY Left 06/2020 reconstruction FOOT TENDON SURGERY 11/13/2023 HYSTERECTOMY 2015 [facility] INTRAUTERINE DEVICE INSERTION 2012 Mirena OTHER SURGICAL HISTORY scar tissue removed from tonsils ROTATOR CUFF REPAIR Right 10/2016 SPINE SURGERY 2017 TONSILLECTOMY 02/11/2021 TUBAL LIGATION Bilateral 2006 Past Medical History: Diagnosis Date ADHD (attention deficit hyperactivity disorder) ([facility]) 1994 Asthma ([facility]) Basal cell carcinoma right chest Colon polyp Compressed cervical disc Cystocele 2021 Depression (CMS/HCC) Difficulty walking 05/12/23 Eczema 2022 Endometriosis 2015 Fissure, anal Gastroparesis GERD (gastroesophageal reflux disease) 1995 Hormone disorder 2018 Hypertension (CMS/HCC) 2000 Migraine (CMS/HCC) OCD (obsessive compulsive disorder) ([facility]) Panic attack (CMS/[facility]) 04/28 Rectocele 2021 RLS (restless legs syndrome) Urinary incontinence 2022 Varicella 1984 Visual impairment 2010 ROS See HPI EXAM GENERAL EXAMINATION alert oriented well developed, well nourished. HEAD: normocephalic atraumatic. EYES: sclera anicteric. EARS: no obvious hearing deficit. 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 EXTREMITIES no edema. NEUROLOGIC: alert and oriented. PSYCH: cooperative with exam. ICD-10-CM 1. Urinary frequency R35.0 Urine dip Has urgency during the day and at night. Had had stimulator placed early this year, feels has not helped. Discussed has used Myrbetriq in the past and has help. Sent 50 mg to pharmacy. mirabegron ER (Myrbetriq) 50 MG 24 hr tablet 2. Urinary urgency R39.15 Urine dip mirabegron ER (Myrbetriq) 50 MG 24 hr tablet 3. Burning with urination R30.0 Urine dip 4. Erythema L53.9 triamcinolone (Kenalog) 0.1 % cream 5. Chronic vulvitis N76.3 Discussed chronic inflammatory vulvitis. Use triamcinolone cream to area. Try to use oneal care to area and not wipe. Use hairdryer on cool seeing- get area completely dry. 6. Night sweats R61 estradiol (Estrace) 1 MG tablet Discussed hot flashes and night sweats. Nights are worse. Try 1 mg of Estradiol daily call with update. Entered by Wendy Colon MA acting as scribe for Dr. Dipti Acevedo. Signature Wendy Colon MA Date 09/04/24 . Time 3:40 PM . The documentation recorded by the scribe accurately reflects the service(s) I personally performed and the decisions I made. Signature Mario Acevedo D.O. Date 09/04/24 Time 5:00PM. documented in this encounter [facility] 09-04-2024 History of Present illness Narrative Images from the original note were not included. SUBJECTIVE: Mary Leal is a 54 y.o. female presents with chief complaint of No chief complaint on file. Pt presents to discuss her anxiety. Pt notes that she is in between therapy at this time, is going to est with new psych in the first few weeks of September. She just had her consult at the new place today but she is not able to see anyone until 09-17-24. Pt notes that her anxiety right now is out of control and has been for the past 2 months. Financial stress, school and home stress. Pt is current with her abilify injections. Review of Systems: Review of Systems All other systems reviewed and are negative. Current Medications: Current Outpatient Medications on File Prior to Visit Medication Sig Dispense Refill Abilify Maintena 300 MG injection syringe inject INTRAMUSCULARLY ONCE A MONTH (BRING TO OFFICE FOR PROVIDER TO ADMINISTER) albuterol HFA 90 mcg/act inhaler Inhale 2 puffs every 4 (four) hours if needed for wheezing atenolol (Tenormin) 50 MG tablet Take 1 tablet (50 mg) by mouth Daily 90 tablet 1 baclofen (Lioresal) 10 MG tablet Take 10 mg by mouth Daily cetirizine (ZyrTEC) 10 MG tablet TAKE 1 TABLET BY MOUTH EVERY DAY 30 tablet 1 cholecalciferol (Vitamin D-3) 125 MCG (5000 UT) capsule Take 125 mcg by mouth Daily Daridorexant HCl (Quviviq) 50 MG tablet Take 50 mg by mouth at bedtime estradiol (Estrace) 0.1 MG/GM vaginal cream Apply 0.5g vaginally twice weekly. 42.5 g 1 ferrous sulfate 325 (65 Fe) MG tablet Take 325 mg by mouth every other day galcanezumab (Emgality) 120 MG/ML auto-injector Inject 120 mg under the skin every 30 (thirty) days ibuprofen 800 MG tablet Take 800 mg by mouth 3 (three) times a day as needed for moderate pain or mild pain L-Theanine 200 MG capsule Take 1 capsule by mouth Daily losartan (Cozaar) 25 MG tablet Take 1 tablet (25 mg) by mouth Daily 30 tablet 11 methylphenidate ER (Concerta) 54 MG CR tablet Take 54 mg by mouth Daily Multiple Vitamin (Multivitamin Adult) tablet Take 1 tablet by mouth in the morning. omeprazole (PriLOSEC) [address] capsule Take 40 mg by mouth in the morning. rOPINIRole (Requip) 1 MG tablet Take 1 tablet (1 mg) by mouth in the morning. 90 tablet 1 rOPINIRole (Requip) 2 MG tablet Take 1 tablet (2 mg) by mouth at bedtime 90 tablet 1 Trelegy Ellipta 100-62.5-25 MCG/ACT aerosol powder INHALE 1 PUFF BY MOUTH DAILY 60 each 1 mirabegron ER (Myrbetriq) 50 MG 24 hr tablet Take 1 tablet (50 mg) by mouth at bedtime Do not crush, chew, or split. 30 tablet 11 [DISCONTINUED] cyclobenzaprine (Flexeril) 10 MG tablet Take 10 mg by mouth 3 (three) times a day as needed [DISCONTINUED] diazePAM (Valium) 10 MG tablet Take 10 mg by mouth [DISCONTINUED] pregabalin (Lyrica) 75 MG capsule Take 1 capsule (75 mg) by mouth in the morning and 1 capsule (75 mg) before bedtime. 60 capsule 0 No current facility-administered medications on file prior to visit. I have reviewed and reconciled the history and medication list with the patient today. Problem List: Patient Active Problem List Diagnosis Abnormal mammogram ADD (attention deficit disorder) without hyperactivity Allergic rhinitis Anxiety Asthma ([facility]) Atopic dermatitis Basal cell carcinoma (BCC) of chest Bipolar affective disorder, most recent episode mixed ([facility]) Degenerative disc disease, cervical Facet arthritis of cervical region Gastro-esophageal reflux disease without esophagitis Gastroparesis Hot flashes due to menopause Hyperlipidemia ([facility]) Hypertension ([facility]) Insomnia Mood swing Restless legs syndrome Tarsal tunnel syndrome Tension headache Vitamin D deficiency Arthritis B12 deficiency Bipolar 1 disorder ([facility]) Chronic cluster headache, not intractable Chronic idiopathic constipation Chronic interstitial cystitis Genitourinary syndrome of menopause Incontinence Migraine ([facility]) CHUCKIE (obstructive sleep apnea) Other fatigue Overactive bladder S/P tonsillectomy S/P nasal septoplasty Sleep disturbance RUQ pain Osteoarthritis of right foot Presence of right artificial ankle joint Primary localized osteoarthrosis of ankle and foot History of stress fracture Presence of functional implant, unspecified Weight loss Heat intolerance Arthritis of left foot Arthritis of right acromioclavicular joint Chronic pelvic pain in female Chronic sinusitis Chronic tonsillitis Cough Daytime hypersomnia Dysuria Follow-up examination after colorectal surgery JOLEEN (generalized anxiety disorder) ([facility] Headache History of 2018 novel coronavirus disease (COVID-19) Impingement syndrome of right shoulder Increased frequency of urination Lingual tonsil hypertrophy Major depressive disorder, recurrent, moderate ([facility]) Nasal congestion Nausea Partial nontraumatic rupture of right rotator cuff Poor urinary stream Stress incontinence in female Unspecified inflammatory spondylopathy, cervical region ([facility]) Urinary urgency Wheezing Pain due to internal orthopedic prosthetic devices, implants and grafts, initial encounter ([facility]) Belching Past Medical History: Past Medical History: Diagnosis Date ADHD (attention deficit hyperactivity disorder) ([facility]) 1994 Asthma ([facility]) Basal cell carcinoma right chest Colon polyp Compressed cervical disc Cystocele 2021 Depression ([facility]) Difficulty walking 05/12/23 Eczema 2022 Endometriosis 2014 Fissure, anal Gastroparesis GERD (gastroesophageal reflux disease) 1995 Hormone disorder 2019 Hypertension (CMS/HCC) 1999 Migraine (CMS/HCC) OCD (obsessive compulsive disorder) ([facility]) Panic attack (CMS/HCC) 04/28 Rectocele 2021 RLS (restless legs syndrome) Urinary incontinence 2022 Varicella 1984 Visual impairment 2009 Family History: Family History Problem Relation Name Age of Onset Alzheimer's disease Mother Joanna Hypertension Mother Joanna Atrial fibrillation Father Dad Hypertension Father Dad Coronary artery disease Father Dad Heart failure Father Dad Allergies: Allergies Allergen Reactions Risperidone Other Reaction(s): breast discharge Poison Brenda Extract Rash Surgical History: Past Surgical History: Procedure Laterality Date ANTERIOR CRUCIATE LIGAMENT REPAIR 2011 APPENDECTOMY 1988 BACK SURGERY 09/20/2017 C5-6 removed BLADDER SUSPENSION BUNIONECTOMY Bilateral CARPAL TUNNEL RELEASE Right COLECTOMY 03/28/2022 Ileostomy and then total colectomy with ileorectal anastomosis for atonic colon COLONOSCOPY 03/2020 CYSTOCELE REPAIR 12/24/2021 ilestomy placement, pelvic floor wall, cystocele, rectocele, bowel straightening- small bowel placed on rectum FOOT SURGERY Right 10/2022 FOOT SURGERY 03/2019 plantar fascitis band revision FOOT SURGERY Left 07/18/2019 tarsel tunnel FOOT SURGERY Left 06/2020 reconstruction FOOT TENDON SURGERY 11/13/2023 HYSTERECTOMY 2015 [facility] INTRAUTERINE DEVICE INSERTION 2013 Mirena OTHER SURGICAL HISTORY scar tissue removed from tonsils ROTATOR CUFF REPAIR Right 10/2016 SPINE SURGERY 2017 TONSILLECTOMY 02/11/2021 TUBAL LIGATION Bilateral 2006 Social History: Social Drivers of Health Tobacco Use: Low Risk (09/04/2024) Patient History Smoking Tobacco Use: Never Smokeless Tobacco Use: Never Passive Exposure: Not on file Alcohol Use: Not At Risk (06/12/2024) AUDIT-C Frequency of Alcohol Consumption: Never Average Number of Drinks: Patient does not drink Frequency of Binge Drinking: Never Financial Resource Strain: Medium Risk (05/01/2024) Overall Financial Resource Strain (CARDIA) Difficulty of Paying Living Expenses: Somewhat hard Food Insecurity: Food Insecurity Present (05/01/2024) Hunger Vital Sign Worried About Running Out of Food in the Last Year: Sometimes true Ran Out of Food in the Last Year: Sometimes true Transportation Needs: No Transportation Needs (05/01/2024) PRAPARE - Transportation Lack of Transportation (Medical): No Lack of Transportation (Non-Medical): No Physical Activity: Insufficiently Active (05/01/2024) Exercise Vital Sign Days of Exercise per Week: 2 days Minutes of Exercise per Session: 10 min Stress: Stress Concern Present (05/01/2024) [place] [employer] - Occupational Stress Questionnaire Feeling of Stress : Rather much Social Connections: Socially Isolated (05/01/2024) Social Connection and Isolation Panel [NHANES] Frequency of Communication with Friends and Family: More than three times a week Frequency of Social Gatherings with Friends and Family: More than three times a week Attends Mosque Services: Never Active Member of Clubs or Organizations: No Attends Club or Organization Meetings: Never Marital Status: Intimate Partner Violence: Not At Risk (06/23/2023) [facility] Safety Threatened: Not on file Insulted: Not on file Physically Hurt : Not on file Scream: Not on file Depression: Not at risk (07/11/2024) PHQ-2 PHQ-2 Score: 0 Housing Stability: Low Risk (05/01/2024) Housing Stability Vital Sign Unable to Pay for Housing in the Last Year: No Number of Times Moved in the Last Year: 1 Homeless in the Last Year: No Health Literacy: Adequate Health Literacy (05/01/2024) B1300 Health Literacy Frequency of need for help with medical instructions: Never OBJECTIVE: Visit Vitals BP 110/76 Pulse 55 Temp 97.5 F Ht 5' 4 Wt 149 lb SpO2 99% BMI 25.58 kg/m OB Status Hysterectomy Smoking Status Never BSA 1.75 m Physical Exam Constitutional: Appearance: Normal appearance. HENT: Head: Normocephalic and atraumatic. Mouth/Throat: Mouth: Mucous membranes are moist. Eyes: Extraocular Movements: Extraocular movements intact. Cardiovascular: Rate and Rhythm: Normal rate and regular rhythm. Heart sounds: Normal heart sounds. Pulmonary: Effort: Pulmonary effort is normal. Breath sounds: Normal breath sounds. No wheezing, rhonchi or rales. Musculoskeletal: Cervical back: Neck supple. Lymphadenopathy: Cervical: No cervical adenopathy. Skin: General: Skin is warm and dry. Neurological: General: No focal deficit present. Mental Status: She is alert and oriented to person, place, and time. Psychiatric: Mood and Affect: Mood normal. Behavior: Behavior normal. Judgment: Judgment normal. Recent Results (from the past 4 weeks) Urine dip Collection Time: 10/30/24 3:19 PM Result Value Ref Range Color, UA Yellow Clarity, UA Clear Glucose, UA Negative Negative - 2000(110) ++++ mg/dL Bilirubin, UA Negative Negative - 4(70) +++ mg/dL Ketones, UA Negative Negative - 160(16) ++++ mg/dL Spec Grav, UA 1.010 1 - 1.03 Blood, UA Negative Negative - 50 Devin/mcL pH, UA 5.0 5 - 9 Protein, UA Negative Negative - 2000(20) ++++ mg/dL Urobilinogen, UA 0.2 0.2 - 12 mg/dL Leukocytes, UA Negative Negative - 500+++ Aicha/mcL Nitrite, UA Negative Negative - Positive ASSESSMENT AND PLAN: Assessment/Plan Diagnoses and all orders for this visit: Anxiety - busPIRone (Buspar) 5 MG tablet; Take 1 tablet (5 mg) by mouth in the morning and 1 tablet (5 mg) before bedtime. Medication as directed. Counseling recommended. Verbalizes understanding of the need to be seen in the ER for suicidal/homicidal ideation, excessive stress, elevated blood pressure or palpitations. Pt offers understanding of treatment plan. I discussed the side effects of the medications described and to seek medical care if they arise. Discussed stress mgmt strategies, social support and importance of healthy diet, exercise and regular sleep habits. Advised on relaxation methods to decrease anxiety and depression. Follow up in about 4 weeks (around 10/02/2024) for PRN. documented in this encounter [facility] 08-07-2024 History of Present illness Narrative This MA verified patients name and . Images from the original note were not included. GASTROENTEROLOGY CLINIC FOLLOW-UP VISIT Referring Provider for today's consult: Padmaja Llamas MD, PhD Primary Care Provider: Shannon Gómez Chief Complaint Patient presents with Follow-up 6 months follow-up History of Present Illness Mary Leal is a 54 y.o. female w/ hx of gastroparesis, pelvic dyssynergia, ADHD, chronic constipation s/p subtotal colectomy, who presents today to the [facility] for chronic abdominal pain, bloating, early satiety. Ms. Leal has followed with several other institutions over the last few years. Her primary symptoms at this time include bloating, early satiety, abdominal pain. She reports severe early satiety with very little caloric intake. She has lost 40 pounds unintentionally over the last year. She has nausea but no emesis. She had severe chronic constipation with superimposed pelvic floor dyssynergia. She did pelvic floor therapy but had no improvement in bowel movements. Ultimately she had a subtotal colectomy initially with end ileostomy but now has continuity. She has 4 loose to soft bowel movements a day with some urgency and rare incontinence. Workup so far: 11/23/23 - normal HIDA scan 68% EF 10/27/23 - hepatic steatosis, nonspecific mild thickening of the GB wall without cholelithiasis or pericholecystic fluid 08/12/23 - CTAP subtotal colectomy otherwise unremarkable 12/26/22 - esophagram with small volume gastroesophageal reflux with burning symptoms 12/07/22 EGD with JULIANA MARTÍNEZ grade D esophagitis, pyloric balloon dilator dilated to 20mm 12/05/22 Flex sig done for constipation, normal 11/24/22 VCE 07/07/21 anorectal manometry Impression poor pelvic floor coordination 12/17/19 - GES retention of the gastric activity is 94% at one hour, 94% at two hour, and 46% at four hours. Ms. Leal sees a local freelance operator. She is worried about parasites with the loose stools, and SIBO due to bloating. Ms. Leal has a history of severe reflux esophagitis but is not currently taking PPI she stopped due to concerns of side effects. She is taking an over the counter supplement root extract recommended by her local freelance operator. She does not take a multivitamin. Last visit: H2 breath testing EGD with pyloric dilation Vit D low Interval history: EGD 04/12/24 with Hill Grade I, no esophagitis, chronic gastritis, dilated pylorus and esophagus to 20mm with balloon dilator. Biopsies with reflux reaction and erosive gastritis but negative HP. Vitamin D repletion, continues PPI. Does not take a multivitamin. She has not increased her intake due to fear of eating will cause weight gain. She is currently eating once a day. Her weight has stabilized, although 40 pounds less then her baseline. She has improvement in her bloating and abdominal pain as long as she doesn't eat more. Her daughter is worried she is not consuming enough. Mary admits she is struggling with her relationship with food. 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 She is not currently following with freelance operator or counselor and is open to both. Bowel movements at baseline, 4-6 loose per day (stable since colectomy) FIB-4 Calculation: 0.7 at 03/06/2024 11:20 AM Calculated from: SGOT/AST: 27 U/L at 03/06/2024 11:20 AM SGPT/ALT: 28 U/L at 03/06/2024 11:20 AM Platelets: 370 K/uL at 03/06/2024 11:20 AM Age: 53 years Otherwise, she denies any recent fevers, chills, night sweats, unexpected weight loss, chest pain, shortness of breath, nausea, vomiting, abdominal pain, diarrhea, constipation, melena, hematochezia. Allergies She is allergic to risperidone. Current Outpatient Medications Medication Sig Abilify Maintena 300 MG Prefilled Syringe IM injection inject INTRAMUSCULARLY ONCE A MONTH (BRING TO OFFICE FOR PROVIDER TO ADMINISTER) Ajovy 225 MG/1.5ML Solution Auto-injector inject 1 AND 1/2 milliliters subcutaneously every 28 DAYS Atenolol 25 MG tablet Take 1 tablet by mouth Daily (with dinner). ferrous sulfate 325 (65 Fe) MG tablet Take 1 tablet by mouth every other day. Losartan 25 MG tablet Take 1 tablet by mouth daily. methylphenidate ER 54 MG tablet Take 1 tablet by mouth daily. omeprazole [address] capsule Take 1 capsule by mouth daily. Quviviq 50 MG tablet Take 50 mg by mouth Every night. rOPINIRole 1 MG tablet Take 1 tablet by mouth daily every morning. rOPINIRole 2 MG tablet Take 1 tablet by mouth at bedtime. Trelegy Ellipta 100-62.5-25 MCG/ACT Aerosol Powder, breath activated inhaler Inhalation for 30 Days Vitamin D3 125 MCG (5000 UT) per tablet Take 1 tablet by mouth daily. Cetirizine 10 MG tablet Take 1 tablet by mouth daily. (Patient not taking: Reported on 08/07/2024) lamoTRIgine 25 MG tablet Take 1 tablet by mouth daily. pregabalin 25 MG capsule Take 2 capsules by mouth 3 times daily. Family History family history includes Heart Failure in her father; Hypertension in her father and mother. Social History Social History Social History Narrative Not on file Review of Systems A full review of systems was performed and is negative unless otherwise stated in the HPI. Physicial Exam BP 120/82 (BP Location: Right arm, BP Position: Sitting) Pulse 68 Temp 97.3 F (36.3 C) Ht 1.626 m (5' 4 ) Wt 69.9 kg (154 lb) SpO2 100% BMI 26.43 kg/m Smoking Status Never Wt Readings from Last 3 Encounters: 08/07/24 69.9 kg (154 lb) 04/12/24 68 kg (150 lb) 03/08/24 69.4 kg (153 lb) General: NAD, resting comfortably in chair HEENT: AT/NC, no scleral icterus, oropharynx unremarkable Lungs: CTABL, no wheezing, rales, rhonchi Heart: RRR, no murmurs, rubs, gallops Abdomen: +BS, soft, NT/ND, no rebound/guarding Extremities: 2+ pedal/radial pulses, no cyanosis, no pedal edema, no obvious jaundice Neurologic: AAOx3, CN2-12 grossly intact, 5/5 strength in all 4 extremitis, no asterixis Labs/imaging: All relevant prior procedures, laboratory and radiology images were reviewed. Assessment/Plan Mary Leal is a 54 y.o. female w/ hx of gastroparesis, pelvic dyssynergia, ADHD, chronic constipation s/p subtotal colectomy, who presents today to the [facility] for chronic abdominal pain, bloating, early satiety. IMPRESSION: 1. Disordered eating 2. Chronic abdominal pain, resolved 3. Bloating, improved 4. Gastroparesis 5. Chronic constipation s/p subtotal colectomy 6. Hepatic Steatosis ASSESSMENT/PLAN: - psychology referral given concern for concomitant eating disorder, fear of eating for gaining weight, not fear of eating due to symptoms - nutrition referral for education on gastroparesis diet, up to 6 small meals a day instead of the one she is doing now to prevent symptoms - multivitamin due to poor PO intake - consider ensures - if unable to advance diet with nutrition support, will plan to repeat gastric emptying study to determine if further procedures/treatments are indicated (reglan, G-poem etc) - continue PPI for gastritis and hx of esophagitis - repeat H2 breath testing - continue vit D supplement, iron supplement - steatosis on imaging, but Fib4 only 0.7 so no further investigation needed at this time The patient was seen with Dr. Llamas. Please see their addendum for further details and additional recommendations. Radha Cardenas M.D. Fellow Physician PGY5 Division of Gastroenterology, Hepatology & Nutrition Department of Internal Medicine [facility] Pager [phone] or Epic Chat with questions Attending: Padmaja Llamas MD, PhD Patient was seen and examined with Dr. Cardenas. PMH, PSH, SH, FH were reviewed. I personally reviewed the pertinent labs, images, and procedures. Agree with the assessment and plans. Briefly, GERD, gastroparesis, pelvic floor dysfunction, chronic constipation s/p subtotal colectomy in 12/2022 now with soft regular 4-6 times daily BM, here for early satiety and unintentional weight loss. GES 2019 (The retention of the gastric activity is 94% at one hour, 94% at two hour, and 46% at four hours), smart pill in 11/2022 (report not available), flex sig in 11/2022 unremarkable prior to colectomy, EGD in 12/202223 grade D esophagitis, empirically dilated pylorus to 20mm with symptom relief, self discontinue PPI due to concerns of side effect. HIDA scan 11/2023 normal. US 04/2023 hepatic steatosis, no cholelithiasis. Last CT abdomen 08/2023 post subtotal colectomy otherwise unremarkable. XR esophagram in 12/2022 suggests reflux. Predominant symptoms are early satiety bloating which are likely related to gastroparesis, GI dysmotility, SIBO. At interval, hydrogen breath test done but not a valid test. Weight has stabilized. EGD on 04/12/24 showed irregular Z line, empiric dilation 20mm of esophagus and pylorus without endoscopic evidence of improvement, erosive gastropathy, negative H pylori. Reported improved abdominal bloating. She eats one meal a day and also reported concerns of weight gain with eating. Vit D deficiency, started on supplement. FIB4 0.7. Ferritin 9, iron sat 13% on iron supplement. Hb 12.6. normal TSH. Negative stool O&P. Continue Omeprazole daily for [facility] due to hx of grade D esophagitis, erosive gastropathy and gastroparesis. Refer to nutrition and psychology (fear of eating). Continue current medications. Based on clinical course, may repeat gastric emptying test and refer to advanced endoscopy for evaluation of G-POEM if clinically indicated. documented in this encounter [facility] 08-07-2024 Instructions Radha Cardenas MD - 08/07/2024 9:00 AM EDT It was a pleasure to see you today. The following are your instructions: - referral to GI specific blasting helper, will request video/telephone visit for you - referral to psychology to help you heal your relationship with food - continue omeprazole, vitamin D, and iron repletion - repeat H2 breath testing as able If you had labs drawn, I or my team will either call you, send you a Supersolid message, or mail you a letter with the results of your tests within 1-2 weeks after you have completed your tests. If you do not hear from our office, please call the clinic to receive your results at [phone]. As a reminder, [facility] MyChart should not be used as a form of communication that replaces an office visit. It can be used for reminders and clarifications If you need to fax old records in, please fax to [phone]. If you have any concerning symptoms, please seek immediate medical attention. documented in this encounter [facility] 07-26-2024 Note SLEEP/NEUROLOGY CLIN IC FOLLOW-UP EVALUATION Date of Evaluation: 07/26/24 Referring Physician: Dr Eliceo Gómez MD Chief Complaints: Trouble sleeping, Trouble falling asleep, Trouble staying asleep, headaches, restless leg syndrome History of Presenting Illness and Interval History: CHUCKIE: Mary Leal is a 53 y.o. woman presenting to clinic for a follow-up visit. She was last seen in the clinic on 04/03/2024. On that visit she was compliant to the inspire??? therapy. The device stimulation was increased from 0.6 to 0.8 V, and range was changed to 0.6-1.6 V. She was advised to increase the settings by 0.1 V each week as tolerated. She was scheduled to undergo fine-tune study on 04/28/2024. She was also continued on Requip 1 mg - 2 mg and daridorexant 50 mg daily for insomnia. She was further continued on Ajovy injections for headache prophylaxis and Nurtec for abortive use. In the interim she underwent inspire??? fine-tune study on 04/28/2024. Based on the study, she was recommended a final voltage setting of 1.1 V. In the interim, she has continued the use of inspire therapy with excellent control of symptoms and sustained benefit to her sleep quality. She denies other issues with the device. Her sleep seems to be better, and she sleeps up to 9 hours every night. She feels better and has more energy upon awakening in the morning. On today's interrogation, it appears that she has increased the settings to 1.6 V. The setting was reduced to 1.1 V, as recommended from fine-tune study. She tolerated the changes with no problem. Insomnia: She is still taking Quiviviq 50 mg at night, which helps her symptoms of insomnia very well, with no side effects. She has failed a plethora of other medications in the past, as detailed below in the table RLS: Restless legs symptoms started in 2018 and continue to be very well controlled with ropinirole (current dose is 1 mg a.m.-2 mg p.m.). Her serum Ferritin was checked in 2019, and was 93 ng/mL. She denies any side effects, in particular mood changes, ankle swelling, syncopal episodes, sudden sleep attacks or symptoms concerning for dopamine dysregulation syndrome. Migraine Headaches: Patient is still having occasional headache and neck pain, she believes that her headache is better controlled with Ajovy injections. She is also seeing a pain medicine clinic for treatment of her headache and neck pain, she is getting local injections. Background history: Sleep Problems: She reports sleep [...] regarding sleep. She eventually was evaluated at [facility] sleep [facility] with Dr. Sherman and had sleep study [...] the past visits we referred her to Dr. Linda (BSM specialist) for CBT-insomnia, which she followed up on, with no significant improvement after the sessions finished. Patient was also evaluated at sleep medicine at [facility], and saw Dr. Yoni Tuttle on 10/14/2022. She was subsequently started on auto-CPAP 5-15 cm H2O with nasal mask in December 2022. She uses the CPAP for about a week, and had severe intolerance and felt suffocated. She had severe pressure and mask intolerance, and despite changes in masks and pressure settings she was not able to tolera (more content not included)... [facility] 06-12-2024 Telephone encounter Note LDH=11/30/22 MEREDITH=10/11/22 Patient will need a follow up appointment For future refills [facility] 06-12-2024 Miscellaneous Notes LDH=11/30/22 MEREDITH=10/11/22 Patient will need a follow up appointment For future refills documented in this encounter [facility] 04-28-2024 Note Quality of life Answer each question by shading in the [place] completely. Choose only one answer for each [...] 75 80 85 90 95 100 X [facility] 04-28-2024 Note Ionia Sleepiness S gladis Please rate the following [...] There are no active Hospital Problems. no [facility] 04-17-2024 Note Attestation signed by Grant Biswas, PhD at 04/18/2024 10:57 AM I have read and agree with the yacht captain's documentation and treatment summary. Please note there [...] (electronically signed on 04/17/2024 at 8:49 AM) [facility] 04-12-2024 Nurse Note Dilated LES to 20mm with balloon, held for [address] Franco [facility] 04-12-2024 Miscellaneous Notes Dilated LES to 20mm with balloon, held for [address] Franco Dilated pylorus to 20mm with balloon, held for [address] Franco. Sedation, vital signs, airway, and monitoring per anesthesia. documented in this encounter [facility] 04-12-2024 Nurse Note Dilated pylorus to 20mm with balloon, held for [address] Franco[address] [facility] 04-12-2024 History and physical note ENDOSCOPIC PREPROCEDURE HISTORY AND PHYSICAL HISTORY OF PRESENT ILLNESS: Mary Leal is a 53 y.o. female seen in the pre-procedure area at [facility]. The indication for endoscopic evaluation includes: [place] grade D esophagitis Early satiety Unintentional weight [...] Monitored Anesthesia Care. Milagros Franco MD, PhD [facility] Work Phone: 04-12-2024 History and physical note ENDOSCOPIC PREPROCEDURE HISTORY AND PHYSICAL HISTORY OF PRESENT ILLNESS: Mary Leal is a 53 y.o. female seen in the pre-procedure area at [facility]. The indication for endoscopic evaluation includes: [place] grade D esophagitis Early satiety Unintentional weight [...] auscultation bilaterally ABDOMEN: Soft, nontender, nondistended ASSESSMENT: aMry Leal is a 53 y.o. female is ready for the planned procedure. ASA Class: ASA 2 - Patient with mild systemic disease with no functional limitations PLAN: Will plan to proceed with DIAGNOSTIC UPPER ENDOSCOPY using Monitored Anesthesia Care. Milagros Franco MD, PhD documented in this encounter [facility] 04-12-2024 Nurse Note 1316- Family/wagon driver arrived to recovery bay. RN provided and reviewed discharge instructions to patient and daughter. Verbalized understanding. All questions answered. 1326- Patient ambulated off ASC unit independently with wagon driver. documented in this encounter [facility] 04-12-2024 Nurse Surgical operation note 1316- Family/wagon driver arrived to recovery bay. RN provided and reviewed discharge instructions to patient and daughter. Verbalized understanding. All questions answered. 1326- Patient ambulated off ASC unit independently with wagon driver. [facility] 04-12-2024 Nurse Note Sedation, vital signs, airway, and monitoring per anesthesia. [facility] 04-03-2024 Note Attestation signed by Pauline Christensen MD at 04/03/2024 4:16 PM I personally saw and examined the patient on the same date of service as resident/fellow Dr. Dumont. I discussed the findings and therapeutic plan with the resident/fellow . I agree with the documentation, except for any edits/updates below. Teaching Physician's Revisions: None Pauline Christensen MD. Supervisor Paste Mixing of Neurology and Sleep Medicine [facility] SLEEP/NEUROLOGY CLINIC FOLLOW-UP EVALUATION Date of [...] regarding sleep. She eventually was evaluated at [facility] sleep center with Dr. Sherman and had [...] referred her to (more content not included)... [facility] 03-14-2024 Telephone encounter Note 02/27/24 OV [...] Rx has been sent. Jacquelin Lowery RN [facility] 03-14-2024 Miscellaneous Notes 02/27/24 OV with Orquidea: [...] Jacquelin Lowery RN documented in this encounter [facility] 02-27-2024 Note HNO ID: [id number] Author: FLOWER LOPEZ APRN.ELECTRICAL JOURNEYMAN Service: ? Author Type: Nurse Practitioner Type: [...] intermittently- somewhat improved. She has worked with [employer] rep re: interstim setting, now on program [...] you received about pain medications helpful? Yes Housing Project Manager offered:Patient declines OBJECTIVE: BP 146/93 Pulse 62 [...] 65% improvement s/p (more content not included)... [facility] 02-27-2024 History of Present illness Narrative [...] intermittently- somewhat improved. She has worked with [employer] rep re: interstim setting, now on program [...] you received about pain medications helpful? Yes Housing Project Manager offered:Patient declines OBJECTIVE: BP 146/93 Pulse 62 [...] Flower Lopez APRN.CNP documented in this encounter [facility] 02-20-2024 Miscellaneous Notes Pt sent mc message [...] 2024 7:32 AM documented in this encounter [facility] 02-11-2024 Note HNO ID: [id number] Author: LISSA DOYLE APRN.CNP Service: ? Author Type: Nurse Practitioner Type: Progress Notes Filed: 02/11/2024 15:16 Note Text: Visit cancelled. Patient checked into express care online system for My ongoing yeast infection. I've tried 3 Diflucan. . Connected to visit, advised PCP or local Express/Urgent Care in person evaluation. Patient verbalized understanding and comfortable with plan. Nontoxic appearance. Lissa Doyle APRN.CNP [facility] 02-11-2024 History of Present illness Narrative Visit cancelled. Patient checked into express care online system for My ongoing yeast infection. I've tried 3 Diflucan. . Connected to visit, advised PCP or local Express/Urgent Care in person evaluation. Patient verbalized understanding and comfortable with plan. Nontoxic appearance. Lissa Doyle APRN.CNP documented in this encounter [facility] 02-07-2024 Note SLEEP/NEUROLOGY CLIN IC FOLLOW-UP EVALUATION [...] a second opinion from sleep medicine at [facility], and saw Dr. Yoni Tuttle on 10/14/2022. [...] regarding sleep. She eventually was evaluated at [facility] sleep center with Dr. Sherman and had [...] like to av (more content not included)... [facility] 01-27-2024 Miscellaneous Notes Inside Upholsterer Resident Telephone Encounter 01/27/2024 10:44 AM Call [...] Discussed with Dr. Mullins Urogyn fellow physician media production manager. Radha Dunham MD Obstetrics and Gynecology, PGY1 documented in this encounter [facility] 01-25-2024 History and physical note PREANESTHESIA CONSULT CLINIC TELEHEALTH VISIT SERVICE DATE: 01/25/2024 SERVICE TIME: 9:02 AM Patient has been identified by name and date of : Yes Reason for contact: PACC visit Accompanied by: Self This is a virtual visit using MyChart Zoom Video Visit. It required patient-provider interaction for the medical decision making as documented below. I have communicated my name and active licensure. The patient's identity and physical location were verified at the time of this visit. Either the patient or their legal field representative has been informed of the risks [...] using inspire to get activated 02/07/2024 ) [id number] Score: Age: <65 Sex: female CHF history: No Hypertension history: Yes Stroke/TIA/thromboembolism history: No Vascular disease history: No Diabetes history: No [id number] Score: 2 ANESTHESIA FINDINGS: Intubation History: No [...] the AM and 2 mg PM Yes zkvnbupadlj-hkqdtsxih-tmodsmtw (TRELEGY ELLIPTA) 100-62.5-25 mcg Inhale 1 Puff as instructed once daily. Yes No medication comments found. ALLERGIES Allergen Reactions Risperidone Intolerance Breast discharge Poison Brenda Extract Rash Covid Immunization Dates Overdue - Covid-19 Vaccine (2022- season) Overdue since 07/07/2023 11/24/2021 Imm Admin: COVID-19 original vaccine, age 12+ yr, monovalent (Health Benefits Direct-Primo1DNTMacroCure - PURPLE TOP) 05/11/2021 Imm Admin: COVID-19 original vaccine, age 12+ yr, monovalent (Health Benefits Direct-[place] REO - PURPLE TOP) 04/20/2021 Imm Admin: COVID-19 original vaccine, age 12+ yr, monovalent (Health Benefits Direct-[place] REO - PURPLE TOP) REVIEW OF SYSTEMS: positive findings are BOLD PAIN ASSESSMENT: Pain Description: Burning, Pressure Duration Amount of Time: 7 Duration Units: Weeks Frequency: Continuous Intervention/Comfort measure: Reposition General: Obesity Body mass index is 25.75 kg/m . No weight loss, malaise or fevers. Neuro: No history of TIA's, stroke, SUBWAY REPAIR SUPERVISOR tumor, impaired sensorium, hemiplegia, paraplegia or quadraplegia. No neurological symptoms or problems. Respiratory: CHUCKIE and asthma Negative for Bronchitis, COPD, Pneumonia within 6 weeks (date), URI < 2 weeks Negative for cough, wheezing or shortness of breath. Negative for hemoptysis. Cardiovascular: HTN Negative for Recent [place], CAD, CHF Negative for chest pain, orthopnea, [...] TIME: 9:02 AM documented in this encounter [facility] 01-23-2024 Instructions Max Marroquin PA-C - 01/23/2024 3:50 PM EDT PATIENT PREOPERATIVE INSTRUCTIONS Pam Wang MD has scheduled you for your procedure at this surgery center: [facility] [place] Scheduling Office: [phone] --[address] [place] [address]. Arrival Time for Surgery: - To obtain your arrival time for surgery, call your physician's office the day before your surgery. - If your surgery is scheduled for Monday, call the Monday before. Your surgeon s customer advisor specialist will tell you what time to call the office. - If you have not reached the departmental customer advisor specialist by 5 P.M., call [phone] after 5 P.M. the day before your [...] Procedures: - YOU MUST HAVE A RESPONSIBLE HEALTHCARE CUSTOMER SERVICE TAKE YOU HOME. A YOUTH TEACHER OR SUPERVISOR LACE TEARING CANNOT BE MADE A RESPONSIBLE HEALTHCARE CUSTOMER SERVICE. - We recommend that a responsible person stays with you overnight to take care of you. - You cannot stay in a hotel alone after outpatient surgery. You will not be permitted to have your surgery, if you do not have someone to take care of you. If you already have an Advance Directive, please fax a copy to [phone] or email to for it to be [...] Max Marroquin PA-C documented in this encounter [facility] 01-22-2024 Note HNO ID: [id number] Author: LEV THOMPSON LPN Service: ? Author Type: LICENSED NURSE Type: Progress Notes Filed: 01/25/2024 09:48 Note Text: DATE OF SERVICE: 01/25/2024 PROBLEM: Mary Leal presents for pre-op teaching. PRE-OP DIAGNOSIS: urinary urgency SCHEDULED SURGERY AND DATE: 01-26-24 [facility] INSRT NSTIM GENERATOR BLADDER W/ POCKET [...] patient have an advanced directive: No Does [facility] have a copy of the patient's advanced [...] prescribed by anesthesia, internal medicine, surgeon, or STEWARD/STEWARDESS NIGHT Stop NSAIDs, Aspirin (ASA), vitamins, herbal supplements, [...] jewelry, body piercing, makeup, contacts, lotions, nail bolivian on fingers, or anything in hair on arrival to surgery Wear low healed shoes and loose fitting clothing Leave all valuables at home or with a family member Directions to [facility] Parking/parking validation on the day prior to [...] if after hours patient instructed to call corn press operator and ask for media production manager dry house tender resident. DENISA program offered to patient: Yes [...] None Educator: Lev Thompson LPN [facility] 01-22-2024 History of Present illness Narrative DATE OF SERVICE: 01/25/2024 PROBLEM: Mary Leal presents for pre-op teaching. PRE-OP DIAGNOSIS: urinary urgency SCHEDULED SURGERY AND DATE: 01-26-24 [facility] INSRT NSTIM GENERATOR BLADDER W/ POCKET [...] patient have an advanced directive: No Does [facility] have a copy of the patient's advanced [...] prescribed by anesthesia, internal medicine, surgeon, or STEWARD/STEWARDESS NIGHT Stop NSAIDs, Aspirin (ASA), vitamins, herbal supplements, [...] jewelry, body piercing, makeup, contacts, lotions, nail bolivian on fingers, or anything in hair on arrival to surgery Wear low healed shoes and loose fitting clothing Leave all valuables at home or with a family member Directions to [facility] Parking/parking validation on the day prior to [...] if after hours patient instructed to call corn press operator and ask for media production manager dry house tender resident. DENISA program offered to patient: Yes [...] None Educator: Lev Thompson LPN [facility] documented in this encounter [facility] 01-22-2024 Instructions Lev Thompson LPN - 01/22/2024 11:22 AM EDT UROGYNECOLOGY PHYSICIAN CONTACT INFORMATION During business hours, these numbers connect to your doctor s office. During the evening and weekends, these numbers will connect you to the answering service to speak with the doctor media production manager. Dr. Pam Wang After hours phone number: or toll free Ask the corn press operator to page the 'dry house tender media production manager.' Surgery Scheduling Office: Call the day before [...] vitamin E, herbal medications, diet pills, and cztj-upq-vkjobpm medications. Tylenol (acetaminophen) is okay. I will not wear jewelry, body piercing(s), makeup, nail bolivian, hairpins, or contacts on the day of [...] my surgeon. Discuss medication changes with your hedis specialist or primary care physician as well. If I stopped taking my blood-thinning medication, I will ask the surgeon when to resume taking it. If I am an outpatient, a responsible person will drive me home and it was suggested that someone stay with me for 24 hours. I understand that a business continuity global director or cabdriver is NOT a responsible caregiver. [...] DAY OF SURGERY/CHECK IN Report to DESK -9 for surgery. A map is located in Your Surgical Guide Book. The online version of the surgical guide book can be found at: [email or web address] The address is [address] [place] [address]/[place] [address] INFECTION PREVENTION Please notify your doctor if [...] Your Surgical Guide Book for more information. [facility] TEAM At the [facility], we have a multidisciplinary team of caregivers that includes fellows, residents, nurse practitioners, physician assistants, clinical nurse specialists, nurses, medical assistants, patient care nursing assistants, social workers, geriatric case manager and many others. We all have different [...] for post-surgery concerns. documented in this encounter [facility] 01-10-2024 History of Present illness Narrative [facility] [address] [place] [address], [address] [facility] [id number] SUBJECTIVE: Patient ID (1970): Mary Leal is [...] 03/20/2020 Performed by Noman Mayo MD at [facility] ENDOSCOPY EGD, DILATATION N/A 09/25/2020 Performed by Noman Mayo MD at [facility] ENDOSCOPY ENDOSCOPIC DIAGNOSTIC DRUG INDUCED SLEEP Bilateral 09/19/2023 Performed by Cullen Dawkins MD at [facility] FOOT SURGERY 06/25/2020 left foot surgery FOOT SURGERY Right 10/2022 and 05/2023 HYSTERECTOMY 2015 LASER LINGUAL TONISILLECTOMY Circumferential 07/08/2021 Performed by Alexei Avila MD PhD at [facility] MRI FOOT LEFT NECK SURGERY 2017 PLANTAR FASCIECTOMY RELEASE PHARYNGEAL SCAR CPT 52248 Circumferential 07/08/2021 Performed by Alexei Avila MD PhD at [facility] RESECTION SUBMUCOSAL NASAL Bilateral 02/11/2021 Performed by Alexei Avila MD PhD at [facility] ROTATOR CUFF REPAIR Right SEPTOPLASTY Circumferential 02/11/2021 Performed by Alexei Avila MD PhD at [facility] TONSILLECTOMY Bilateral 02/11/2021 Performed by Alexei Avila MD PhD at [facility] TOTAL COLECTOMY 03/2022 uvuloplasty N/A 02/11/2021 Performed by Alexei Avila MD PhD at [facility] Family History Problem Relation Age of [...] in the morning. Indications: gastroesophageal reflux disease. rakxotpeoie-qflttowwc-ttnqrbdn (TRELEGY ELLIPTA) 100-62.5-25 mcg blister with device [...] nebulizer solution 2.5 mg 2.5 mg nebulization AGUSTINN Gwendolyn Stroud APRN-KWESI REVIEW OF SYSTEMS: Review of Systems Data [...] to ensure the accuracy of this automated welder setter electron beam machine, some errors in welder setter electron beam machine may have occurred. Iam Siddiqi 01/10/24 0753 [facility] Instructions Cullen Dawkins MD - 01/10/2024 [...] test result within 7 days, please call [phone] to leave a request for your results. [...] Ultrasound, MRI or PET scan, please call [employer] Central Scheduling at [phone]. If you need to be scheduled for surgery, please call Aiden Augustin Surgery Coordinator at [phone], or Lazara at [phone] or our main number [phone] if you have not received a return [...] (and medications that contain aspirin): Many non-prescription (ioor-kai-rcjwcpe or OTC) medications contain aspirin. If you are unsure whether a medication you take has aspirin, please ask your pharmacist or your surgeon's office. You must ask your surgical team if they want you to continue taking, or stop taking aspirin before your procedure. Medications containing aspirin that should be stopped 7 days before surgery: Juliet-[place] Anacin Aspirin Fiorinal Ascriptin Carlos Bufferin Lortab ASA Darvon Ecotrin Excedrin Percodan Midol Pepto-Bismol Rolanda Examples of Non-Steroidal Anti-Inflammatory Drugs (NSAIDs) that [...] L-carnosine Licorice Kava kava Milk thistle Multivitamin [place]-3 Resveratrol Skullcap Delmita's wort Vitamin E Adipex (phentermine) Glenn (orlistat) Hydroxycut Garcinia Cambogia Raspberry Ketones [id number]-[id number]-74 should be stopped 14 days before surgery You will receive specific instructions regarding your insulin and anti-coagulant/anti-platelet medications (if applicable). documented in this encounter [facility] 12-27-2023 Miscellaneous Notes PATIENT NOTIFIED WITH SURGERY TIME OF 11:00. TOLD TO ARRIVE 2 HOURS PRIOR. documented in this encounter [facility] 12-27-2023 Telephone encounter Note PATIENT NOTIFIED WITH SURGERY TIME OF 11:00. TOLD TO ARRIVE 2 HOURS PRIOR. [facility] 12-25-2023 Miscellaneous Notes See MC message [...] distance health visit in this department: 10/25/2021 Railway Track Plant Operator, Nurse Next visit in this department: 01/25/2024 documented in this encounter [facility] 12-20-2023 History and physical note PRE-ADMISSION TESTING HISTORY AND PHYSICAL EXAM DATE: 12/20/23 PCP: ELICEO GÓMEZ JR, DO CHIEF COMPLAINT: CHUCKIE (obstructive sleep apnea) HISTORY OF PRESENT ILLNESS: Mary Leal, a 53 y.o. White or female, presents to [facility] for a pre-surgical H&P for [...] 03/20/2020 Performed by Noman Mayo MD at [facility] ENDOSCOPY EGD, DILATATION N/A 09/25/2020 Performed by Noman Mayo MD at [facility] ENDOSCOPY ENDOSCOPIC DIAGNOSTIC DRUG INDUCED SLEEP Bilateral 09/19/2023 Performed by Cullen Dawkins MD at [facility] FOOT SURGERY 06/25/2020 left foot surgery FOOT SURGERY Right 10/2022 and 05/2023 HYSTERECTOMY 2015 LASER LINGUAL TONISILLECTOMY Circumferential 07/08/2021 Performed by Alexei Avila MD PhD at [facility] MRI FOOT LEFT NECK SURGERY 2017 PLANTAR FASCIECTOMY RELEASE PHARYNGEAL SCAR CPT 70579 Circumferential 07/08/2021 Performed by Alexei Avila MD PhD at [facility] RESECTION SUBMUCOSAL NASAL Bilateral 02/11/2021 Performed by Alexei Avila MD PhD at [facility] ROTATOR CUFF REPAIR Right SEPTOPLASTY Circumferential 02/11/2021 Performed by Alexei Avila MD PhD at [facility] TONSILLECTOMY Bilateral 02/11/2021 Performed by Alexei Avila MD PhD at [facility] TOTAL COLECTOMY 03/2022 uvuloplasty N/A 02/11/2021 Performed by Alexei Avila MD PhD at [facility] FAMILY HISTORY: Family History Problem Relation [...] Indications: gastroesophageal reflux disease., Disp: , Rfl: suyvxxisuxc-fofhmnukl-zmbqoiwg (TRELEGY ELLIPTA) 100-62.5-25 mcg blister with device, Inhale 1 puff in the morning., Disp: 60 each, Rfl: 5 fremanezumab-vfrm (CardMunchOVY AUTOINJECTOR) 225 mg/1.5 mL, inject 1 AND [...] mg, 2.5 mg, nebulization, PRN, Gwendolyn Stroud, MARKET RESEARCH MANAGER-ELECTRICAL JOURNEYMAN REVIEW OF SYSTEMS: Review of Systems Constitutional: [...] the most recent lab values available in [facility] at the time of the office visit and additional labs may have been drawn since that time. ASSESSMENT / DIAGNOSIS: CHUCKIE (obstructive sleep apnea) PLAN: Mary Leal is scheduled for Insertion Stimulator Nerve Hypoglossal - Right with Dr. Dawkins on 01/02/2024. STELLA Duron 12/20/23 1240 [facility] 12-20-2023 History and physical note PRE-ADMISSION TESTING HISTORY AND PHYSICAL EXAM DATE: 12/20/23 PCP: ELICEO GÓMZE JR, DO CHIEF COMPLAINT: CHUCKIE (obstructive sleep apnea) HISTORY OF PRESENT ILLNESS: Mary Leal, a 53 y.o. White or female, presents to [facility] for a pre-surgical H&P for [...] 03/20/2020 Performed by Noman Mayo MD at [facility] ENDOSCOPY EGD, DILATATION N/A 09/25/2020 Performed by Noman Mayo MD at [facility] ENDOSCOPY ENDOSCOPIC DIAGNOSTIC DRUG INDUCED SLEEP Bilateral 09/19/2023 Performed by Cullen Dawkins MD at [facility] FOOT SURGERY 06/25/2020 left foot surgery FOOT SURGERY Right 10/2022 and 05/2023 HYSTERECTOMY 2015 LASER LINGUAL TONISILLECTOMY Circumferential 07/08/2021 Performed by Alexei Avila MD PhD at [facility] MRI FOOT LEFT NECK SURGERY 2017 PLANTAR FASCIECTOMY RELEASE PHARYNGEAL SCAR CPT 70116 Circumferential 07/08/2021 Performed by Alexei Avila MD PhD at [facility] RESECTION SUBMUCOSAL NASAL Bilateral 02/11/2021 Performed by Alexei Avila MD PhD at [facility] ROTATOR CUFF REPAIR Right SEPTOPLASTY Circumferential 02/11/2021 Performed by Alexei Avila MD PhD at [facility] TONSILLECTOMY Bilateral 02/11/2021 Performed by Alexei Avila MD PhD at [facility] TOTAL COLECTOMY 03/2022 uvuloplasty N/A 02/11/2021 Performed by Alexei Avila MD PhD at [facility] FAMILY HISTORY: Family History Problem Relation [...] Indications: gastroesophageal reflux disease., Disp: , Rfl: aglsgddbzgw-pyofvdssf-dfumnhyp (TRELEGY ELLIPTA) 100-62.5-25 mcg blister with device, [...] mg, 2.5 mg, nebulization, PRN, Gwendolyn Stroud, MARKET RESEARCH MANAGER-ELECTRICAL JOURNEYMAN REVIEW OF SYSTEMS: Review of Systems Constitutional: [...] the most recent lab values available in [facility] at the time of the office visit and additional labs may have been drawn since that time. ASSESSMENT / DIAGNOSIS: CHUCKIE (obstructive sleep apnea) PLAN: Mary Zoya Leal is scheduled for Insertion Stimulator Nerve Hypoglossal - Right with Dr. Dawkins on 01/02/2024. STELLA Duron 12/20/23 1240 documented in this encounter [facility] 12-20-2023 Instructions Earlene Whalen RN - 12/20/2023 11:45 AM EST Your surgery/procedure is scheduled at [facility] on 01/02/2024 Arrival Time Surgeon will call [facility] Address: [address] [place] [address], [address] Park in the Emergency Center Parking lot. Report to the assistant front end manager in the Emergency/Surgery Registration lobby of the hospital. Please call Pre-Admission Clinic at [phone] if you have any questions prior to surgery. For questions the morning of surgery, please call the Pre-op Department at [phone]. Notify your SURGEON if you develop any [...] [facility], please call [phone] ([phone]). Do not use lotions, creams, powders, perfume, make up, cologne or after-shaves day of surgery. Remove ALL jewelry including wedding rings, body piercings, hair extensions that contain metal, nail bolivian, make-up, and contact lens. You may brush your teeth the morning of surgery, but do not swallow the water. Wear your dentures and partial plates to the hospital (no adhesive). Shower the night the before. If applicable, use the CHG (chlorhexidine gluconate) soap or wipes. Please be advised, [facility] has transitioned to a cashless [...] RIGHTS AND RESPONSIBILITIES As a patient at [facility], you have the right to: Receive medical care and be informed of who is taking care of you Be treated with dignity and respect Have a family member/field representative of choice and your physician notified of your admission Receive information and actively participate in decisions about your care and treatment Refuse care, treatment and services Decide who may provide your support and speak for you Access uatsdin and spiritual services Participate in ethical issues [...] of hospital charges and payment methods Patient/patient field representative responsibilities are to: Provide information about [...] in clean clothes. documented in this encounter [facility] [employer] 11-21-2023 Note HNO ID: [id number] Author: PAM WANG MD Service: ? Author [...] and is accurate and complete. [facility] 11-08-2023 Miscellaneous Notes NURTEC PENDING WITH TEJADA [id number] documented in this encounter [facility] 11-08-2023 Telephone encounter Note NURTEC PENDING WITH TEJADA [id number] [facility] 10-12-2023 Note Patient emailed stat ing she is finding another provider and will no longer be seen at this clinic. [facility] 10-12-2023 Note HNO ID: [id number] Author: Pam Wang MD Service: ? Author [...] Video-assisted cystourethroscopy was performed using a 19 Belarusian 70 and 30 degree rigid cystoscope with [...] See progress note from today [facility] 10-10-2023 Note HNO ID: [id number] Author: Pam Wang MD Service: ? Author [...] PFSH obtained by others. Pam Wang MD Housing Project Manager offered: Patient declines. OBJECTIVE: BP 102/60 [...] would like to move forward with PNE. [employer] packet given to patient today to review. [...] which included preparing to see the patient, thca-ip-ylkr patient care, completing clinical documentation, obtaining and/or reviewing separately obtained history, performing a medically appropriate examination, counseling and educating the patient/family/caregiver, and communicating with other HCP (more content not included)... [facility] 10-02-2023 Miscellaneous Notes Patient was called to find out if there was another pharmacy to send her medication for Diflucan. Patient stated to disregard this medication. Patient stated that she does not need this medication now and that she will be visiting her PCP tomorrow (10/03/23) to address her sickness that she had before going to [place]. She states that she was going to [...] 150 MG TABLET MEREDITH: 09/27/2023 Doris Arias APRN.ELECTRICAL JOURNEYMAN ([facility]) ASSESSMENT: Mary Leal is a 53 [...] Dr. Pam Wang documented in this encounter [facility] 09-27-2023 Note HNO ID: [id number] Author: Doris Arias APRN.ELECTRICAL JOURNEYMAN Service: ? Author Type: Nurse Practitioner Type: [...] ache and some malodorous urine. Patient in [place], unable to come in for visit. Has [...] urination is normal and pressure with urinating SECURITY AGENT: denies abnormal vaginal bleeding, no vaginal discharge [...] Making Level: 3 - Low Doris Arias APRN.[facility] 09-27-2023 Miscellaneous Notes Scheduled 10/10/23 for Diagnostic [...] which included preparing to see the patient, xqkw-hj-nxdc patient care, completing clinical documentation, obtaining and/or [...] Office will call to schedule cystoscopy. Urogynecology [facility] Main provided: Pam Wang Staff Physician, Department of Urogynecology and Pelvic Floor Disorders Worsening frequency and urgency of urination. Is a urine culture indicated? Please review/advise Lex Vieyra RN documented in this encounter [facility] 09-11-2023 Note HNO ID: [id number] Author: Jairon Lai MD Service: ? Author Type: Physician Type: Progress Notes Filed: 09/11/2023 1:18 PM Note Text: [facility] [...] lower flow Jairon Lai MD [facility] 09-11-2023 Note HNO ID: [id number] Author: Phil Beckford MD Service: ? Author [...] incision +/- discussion of SNM [facility] 08-12-2023 Emergency department Note Discharge, follow up, referral, and prescription information reviewed and explained; all questions and concerns addressed. Patient A/Ox3 in NAD, resp. easy unlabored upon discharge, escorted to exit by staff. [facility] 08-12-2023 Emergency department Note Discharge, follow up, [...] gastroparesis, gastroenteritis, acute cholecystitis, pancreatitis, less likely [place] The patient's initial and delta troponin are negative. EKG does not demonstrate any ischemic changes. Low suspicion for [place]. Her urinalysis is negative for UTI. Urine [...] follow-up. She was instructed to call her power sewing machine operator and PCP to schedule follow-up appointments. She was instructed to return to the emergency department if she has any new or worsening symptoms. Patient agreeable plan of care. Return precautions discussed at bedside. Spoke with Dr. Salmon regarding patient. Physician to complete their own physical exam and evaluation. Collaboration performed between this TISSUE TECHNICIAN and physician regarding patient's plan of [...] following orders were created for panel order [place] Draw. Procedure Abnormality Status --------- ------ Gold Top[[id number]] Final result LIGHT BLUE TOP[[id number]] Final result Dark Green Top[[id number]] Final result Please view results for these [...] noted. documented in this encounter [facility] 08-12-2023 Hospital Discharge instructions Lev Ritter APRN [...] cannot be sent through Care Everywhere.Abdominal Pain (Swedish Macedonian)documented in this encounter [facility] 08-12-2023 Emergency department Note Report to Les GAMBINO [facility] 08-12-2023 Physician Emergency department Note Images from [...] gastroparesis, gastroenteritis, acute cholecystitis, pancreatitis, less likely [place] The patient's initial and delta troponin are negative. EKG does not demonstrate any ischemic changes. Low suspicion for [place]. Her urinalysis is negative for UTI. Urine [...] follow-up. She was instructed to call her power sewing machine operator and PCP to schedule follow-up appointments. She was instructed to return to the emergency department if she has any new or worsening symptoms. Patient agreeable plan of care. Return precautions discussed at bedside. Spoke with Dr. Salmon regarding patient. Physician to complete their own physical exam and evaluation. Collaboration performed between this TISSUE TECHNICIAN and physician regarding patient's plan of [...] following orders were created for panel order [place] Draw. Procedure Abnormality Status --------- ------ Gold Top[[id number]] Final result LIGHT BLUE TOP[[id number]] Final result Dark Green Top[[id number]] Final result Please view results for these tests on the individual orders. GOLD TOP LIGHT BLUE TOP DARK GREEN TOP TROPONIN I Records reviewed: Urogynecology telemedicine visit 08/07/2023 ENT visit 07/11/2023 Family medicine visit 07/06/2023 Lev Ritter APRN CNP 08/12/23722 [facility] 08-12-2023 Emergency department Note Emily at bedside [facility] 08-12-2023 Emergency department Triage note Ambulates to triage with C/O sudden epigastric gnawing, burning pain that woke her from sleep. Also reports wheezing. States nausea. Denies fever. Alert. Respirations easy and unlabored. Skin PWD. NAD noted. [facility] 08-07-2023 Note HNO ID: [id number] Author: Pam Wang MD Service: ? Author [...] uriary rete. Last visit (07/31/2023) Impression: Mary Lael is a 53 year old female with [...] no Pain: no Abnormal Vaginal Discharge: no 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 She has no history of an abnormal mammogram with cysts on US LMP: No LMP recorded. Patient has had a hysterectomy.; Menopause 3 years ago; hysterectomy in 2015: Menstrual history: NA; Deliveries: I have confirmed and edited as necessary, the PFSH obtained by others. Pam Wang MD Housing Project Manager offered: Patient declines. OBJECTIVE (Virtual) There [...] which included preparing to see the patient, uhev-qq-vszw patient care, completing clinical documentation, obtaining and/or reviewing separately obtained history, counseling and educating the patient/family/caregiver, ordering medications, tests, or procedures, and communicating with other HCPs (not separately reported). Pam Wnag MD [facility] 07-31-2023 Note HNO ID: [id number] Author: Nelsy Chávez APRN.ELECTRICAL JOURNEYMAN Service: ? Author Type: Nurse Practitioner Type: [...] new Pain: no Abnormal Vaginal Discharge: no 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 She has no history of an abnormal mammogram with cysts on US LMP: No LMP recorded. Patient has had a hysterectomy.; Menopause 3 years ago; hysterectomy in 2015: Menstrual history: NA; Deliveries: I have confirmed and edited as necessary, the PFSH obtained by others. Nelsy Chávez APRN.ELECTRICAL JOURNEYMAN Housing Project Manager offered: Patient declines. OBJECTIVE: There were [...] for now d/t side effects Nelsy Chávez APRN.ELECTRICAL JOURNEYMAN I spent a total of 45 minutes on the date of the service which included preparing to see the patient, olbf-sd-zwcl patient care, completing clinical documentation, performing a medically appropriate examination, counseling and educating the patient/family/caregiver and ordering medications, tests, or procedures. [facility] 07-31-2023 History of Present illness Narrative [...] new Pain: no Abnormal Vaginal Discharge: no 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 She has no history of an abnormal mammogram with cysts on US LMP: No LMP recorded. Patient has had a hysterectomy.; Menopause 3 years ago; hysterectomy in 2015: Menstrual history: NA; Deliveries: I have confirmed and edited as necessary, the PFSH obtained by others. Nelsy Chávez APRN.ELECTRICAL JOURNEYMAN Housing Project Manager offered: Patient declines. OBJECTIVE: There were [...] for now d/t side effects Nelsy Chávez APRN.ELECTRICAL JOURNEYMAN I spent a total of 45 minutes on the date of the service which included preparing to see the patient, vram-of-vtta patient care, completing clinical documentation, performing a medically appropriate examination, counseling and educating the patient/family/caregiver and ordering medications, tests, or procedures. documented in this encounter [facility] 04-26-2023 Evaluation note Encounter Date Diagnosis Assessment [...] Above note written by Wanda Yang LPN, Lithoduplicator Operator. Edited and approved by Dr. Beto Snyder MD. [employer] Other 06-06-2023 Miscellaneous Notes* Telephone Encounter - Serenity Joseph MA - 04/11/2023 10:19 AM EDT MEREDITH=10/11/22 Spoke with patient she does need a refill Medication pended please file Rx request if appropriate Patient and pharmacy verified documented in this encounterFire[facility] Miscellaneous Notes* Telephone Encounter - Regina Philippe - 03/20/2023 2:50 PM EDT Should patient follow up via virtual visit to discuss further? * Telephone Encounter - Steffi Ross LPN - 03/20/2023 10:20 AM EDT Patient's stool tests came back normal. Steffi Ross LPN documented in this encounterFirelands [facility]04-18-2023 NotePROCEDURE: XR ANKLE RT MIN 3 [...] Date: 2023-02-21 10:15[facility]04-18-2023 NotePROCEDURE: XR ANKLE RT MIN 3 VIEWS, [...] Electronically authenticated by: ZAIDA ACOSTA Date: 2023-02-21 10:[address] [place], [place] [address]03-28-2023 NotePROCEDURE: XR FOOT RT MIN 3 VIEWS [...] Date: 2023-01-31 11:55[facility]03-16-2023 Miscellaneous Notes* Telephone Encounter - Jennie Moreno RN - 01/19/2023 2:17 PM EDT Please review and advise patient. documented in this encounterFirelands [facility]03-13-2023 Miscellaneous Notes* Telephone Encounter - Mounika Roberto PA-C - 01/16/2023 1:08 PM EDT Patient was scheduled for virtual PACC appt at 1300 today. Patient did not check in for visit. Called patient at [phone] to see if they needed any assistance logging in and left voicemail. This message routed to PACC schedulers to contact patient to reschedule PACC appt. Mounika Roberto PA-C January 16, 2023 1:09 PM documented in this encounterFirelands [facility]03-13-2023 History and physical note * Mounika Roberto PA-C - 01/16/2023 1:00 PM EDT This is a virtual visit using Supersolid video visit. It required patient-provider interaction for themedical decision making as documented below. I have communicated my name and active licensure. The patient's identity and physical location wereverified at the time of this visit. Either the patient or their legal field representative has been informed of the risks and benefits of and alternatives to treatment through a remote evaluation and consents to proceed with the evaluation remotely. Surgeon: Winston Hannah DO Type of surgery: GEN SURG: POP Patient scheduled for surgery on 02/08/23 . Surgery Location: [facility] Diagnosis: Preop examination (primary encounter diagnosis) [...] in the AM and 4 mg PM ikmxvkoeqvx-mapnmedng-hsgxjuey (TRELEGY ELLIPTA) 100-62.5-25 mcg Inhale 1 Puff [...] 16, 2023 12:36 PM documented in this encounterFirelands [facility]03-13-2023 Instructions* Patient Instructions* Mounika Roberto PA-C - 01/16/2023 12:38 PM EDT PATIENT PREOPERATIVE INSTRUCTIONS Winston Hannah DO has scheduled you for your procedure at this surgery center: [facility]: [phone] -- [address] [address]. Please read below carefully for your personalized [...] Procedures: - YOU MUST HAVE A RESPONSIBLE HEALTHCARE CUSTOMER SERVICE TAKE YOU HOME. A YOUTH TEACHER OR SUPERVISOR LACE TEARING CANNOT BE MADE A RESPONSIBLE HEALTHCARE CUSTOMER SERVICE. - We recommend that a responsible person [...] Advance Directive, please fax a copy to [phone] or email to for it to be [...] day. Mounika Roberto PA-C documented in this encounterFirelands [facility]03-08-2023 Miscellaneous Notes* Telephone Encounter - Berta Ann RN - 01/11/2023 9:47 AM EST Procedure pended for 02/08/23. Pt aware of need for PACC. Pre-op instructions reviewed, will send to pt's MC, per pt request. Postop appt scheduled. No other questions at this time. Berta HENSON, RN Specialty Senior Water Resources Engineer documented in this encounterFirelands [facility]03-07-2023 History of Present illness Narrative* Winston Hannah, - 01/10/2023 9:09 AM EST Images from the original note were not included. [facility] [place] Gastroparesis/Dysmotility Follow Up This encounter was provided via two-way, live video teleconferencing within the guidelines of [facility] rules for new and established patients. The [...] of care. NAME: Mary Leal CLINIC NO: [id number] CHIEF COMPLAINT Idiopathic Gastroparesis HISTORY OF PRESENT [...] Normal gastric transit Normal small bowel transit [id number] transit in the distal bowel consistent delay [...] (FLONASE) 50 mcg/actuation nasal spray Use 1 Gypsum in each nostril once daily. carBAMazepine XR [...] THE LUNGS every 4 hours if needed xlidlafdqrl-fwpjtwrgx-cpqrlzsq (TRELEGY ELLIPTA) 100-62.5-25 mcg Inhale 1 Puff [...] dialysis. No history of symptoms or problems. SECURITY AGENT: Negative for abnormal vaginal bleeding, abnormal vaginal [...] and plan of care. documented in this encounterFirelands [facility] Medical [facility]02-23-2023 Miscellaneous Notes* Addendum Note - Yoni Tuttle MD - 12/29/2022 3:37 PM ESTAddended by: YONI TUTTLE MD on: 12/29/2022 03:37 PM Modules accepted: Orders documented in this encounterFirelands [facility]02-20-2023 History of Present illness Narrative* RT Елена(R) [...] 26, 2022 3:17 PM documented in this encounterFirelands Regional Medical [facility]02-17-2023 Miscellaneous Notes* Telephone Encounter - Erica Serrano RN - 12/23/2022 4:36 PM EST Message being addressed in another encounter that was forwarded to provider documented in this encounterFirelands [facility]02-16-2023 History of Present illness Narrative* Winston Zoya Hannah, DO - 12/22/2022 8:52 AM EST Images from the original note were not included. [facility] [place] Gastroparesis/Dysmotility Follow Up This encounter was provided [...] completed esophagram NAME: Mary Leal CLINIC NO: [id number] CHIEF COMPLAINT Idiopathic Gastroparesis HISTORY OF PRESENT [...] chicken spaghetti etc. Duration of symptoms (months): 6031-1812 Weight changes in last 3 months: Stable [...] Normal gastric transit Normal small bowel transit [id number] transit in the distal bowel consistent delay [...] 07/2021 revision VAGINAL HYSTERECTOMY 2014 [facility] [...] (FLONASE) 50 mcg/actuation nasal spray Use 1 Gypsum in each nostril once daily. carBAMazepine XR [...] THE LUNGS every 4 hours if needed ayoehsahldp-czdyeilgr-qpntnazd (TRELEGY ELLIPTA) 100-62.5-25 mcg Inhale 1 Puff [...] dialysis. No history of symptoms or problems. SECURITY AGENT: Negative for abnormal vaginal bleeding, abnormal vaginal [...] and plan of care. documented in this encounterFirelands Regional Medical [facility]02-15-2023 NotePROCEDURE: XR FOOT RT MIN 3 VIEWS [...] Date: 2022-12-21 12:24[facility]02-09[facility] History of Present illness Narrative* Mary Obrien [...] in the AM and 4 mg PM fxymljqjaae-xbklsbzcw-syddqcwp (TRELEGY ELLIPTA) 100-62.5-25 mcg Inhale 1 Puff [...] which included preparing to see the patient, nfps-es-bmrq patient care, completing clinical documentation, obtaining and/or reviewing separately obtained history, counseling and educating the patient/family/caregiver, ordering medications, quincy ts, or procedures, communicating with other HCPs (not separately reported), independently interpreting results (not separately reported), communicating results to the patient/family/caregiver, and care coordination (not separately reported). Mary Obrien MD Colorectal Surgery documented in this encounterFirelands Regional Medical [facility]02-08-2023 Miscellaneous Notes* Telephone Encounter - Emily Benton RN - 12/14/2022 5:19 PM EST Several attempts to reach pt unsuccessful - MC sent. * Telephone Encounter - Barber Marie - 12/02/2022 8:39 AM EST SLEEP PHONE Name of caller: Mary Leal Relationship to patient : Self In-state or oeq-bo-dodvf patient: In-State Was permission obtained from patient? Yes Patient identified by Name and Date of . ( Mary Leal, 1970). Yes Reason for Call : Patient said her and Emily was chatting through my chart and Emily calledher about 5:15 yesterday. Number to return call [phone] Okay to leave a message ? Yes Last office visit 10/14/[address] Kusum guzman Next office visit 01/13/[address] Tuttle virtual documented in this encounterFirelands Regional Medical [facility]02-06-2023 Miscellaneous Notes* Telephone Encounter - Jet Wong [...] and follow up testing return call to [phone] documented in this encounterFirelands Regional Medical [facility]02-03-2023 Miscellaneous Notes* Telephone Encounter - MALAIKA Rosales [...] patient Summary: As noted Concerns: Procedure results Senior Water Resources Engineer plan for next outreach: Will follow up Signature Nelsy Gilmore RN December 08, 2022 documented in this encounterFirelands Regional Medical [facility]01-30-2023 Nurse Note* Lisa Contreras RN - 12/05/2022 1:05 PM EST [facility] I'm calling from [facility] endoscopy to provide you with the information for your surgery/procedure tomorrow. Spoke to: Patient CONFIRM Procedure Planned with patient:Esophagogastroduodenoscopy(EGD) with or without biopies based on clinical findings, removal of polyps or lesions Are you familiar with where [facility] is located?yes Address [address] [facility] Patient instructed to enter through the main hospital entrance off [address] at [address] through the revolving doors and check in at the main desk with your wagon driver's license and insurance card.yes When anesthesia or sedation is being given: Patient instructed you must have an adult wagon driver because you will not be able to work or drive for the rest of the day after your test.yes Can you please confirm the name and relationship of your wagon driver. tbd What is the best number for your wagon driver to be reached at tomorrow for updates? tbd Your wagon driver is allowed to wait here with [...] Do not wear makeup, lotion, or finger bolivian. yes Patient instructed: Please bring a list [...] given Any barriers to Patient learning (confusion? Customs Import Specialist needed?): Patient/Patient Seasonal Recruiter responded appropriately on phone. If patient needs to reschedule please call: [phone] [facility] phone number: [phone] Type of instruction given: Verbal by telephone contact. documented in this encounterFirelands Regional Medical Center [facility]01-27-2023 Nurse Note* Isra Harman RN - 12/02/2022 10:48 AM EST [facility] ENDOSCOPY PRE PROCEDURE CALL Akiko. I'm calling from [facility] endoscopy to provide you with the information for your surgery/procedure tomorrow. Spoke to: Patient CONFIRM Procedure Planned with patient: Are you familiar with where [facility] is located?yes Address [facility] Patient instructed to enter through the main hospital entrance off [address] at [address] through the revolving doors and check in at the main desk with your wagon driver's license and insurance card.yes When anesthesia or sedation is being given: Patient instructed you must have an adult wagon driver because you will not be able to work or drive for the rest of the day after your test.yes Can you please confirm the name and relationship of your wagon driver. Rich What is the best number for your wagon driver to be reached at tomorrow for updates? [phone] Your wagon driver is allowed to wait here with [...] must be done on Monday.) Did you picker your bowel prep pt calling office [...] Do not wear makeup, lotion, or finger bolivian. yes Patient instructed: Please bring a list [...] given Any barriers to Patient learning (confusion? Customs Import Specialist needed?): Patient/Patient Seasonal Recruiter responded appropriately on phone. If patient needs to reschedule please call: [phone] [facility] phone number: [phone] Type of instruction given: Verbal by telephone contact. documented in this encounterFirelands Regional Medical Center South Campus01-26-2023 NotePROCEDURE: XR FOOT RT MIN 3 [...] Date: 2022-12-01 11:42[facility]01-26-2023 NotePROCEDURE: XR FOOT RT MIN 3 VIEWS, [...] Date: 2022-12-01 11:42[facility]01-25-2023 History of Present illness Narrative* Isra Masters, [...] in the AM and 4 mg PM fizsxuswyif-kjxcfwxtz-tuhzbpfw (TRELEGY ELLIPTA) 100-62.5-25 mcg Inhale 1 Puff [...] no edema RESPIRATORY: No dyspnea : neg SECURITY AGENT: neg The remainder of the review of [...] Isra Masters DO 11/30/2022 documented in this encounterFirelands Regional Medical Center South Campus01-19-2023 Miscellaneous Notes* Telephone Encounter - Erica Serrano RN - 11/24/2022 3:20 PM EST This concern was addressed in the phone encounter on 11/24/22. Patient was called back and informed [employer] will complete Prior Authorization for her sleep study. documented in this encounterFirelands Regional Medical Center South Campus01-19-2023 Miscellaneous Notes* Telephone Encounter - Erica Serrano [...] Relationship to patient : Self In-state or hch-nx-thagm patient: In-State Was permission obtained from patient? Yes Patient identified by Name and Date of . ( Mary Leal, 1970). Yes Reason for Call : Patient stated she spoke to her insurance and they told her that the provider need to call [place] to see if a PA is needed for the PAP Titration. Number to return call [phone] Okay to leave a message ? Yes Last office visit 10/14/[address] Tuttle virtual Next office visit None documented in this encounterFirelands Regional Medical Center South Campus01-19-2023 History of Present illness Narrative* Isra Masters DO - 11/24/2022 8:29 AM EST Images from the original note were not included. Robert Test Report - [id number] Test start date: 11/17/2022 10:03 AM Electrician Wiring: josephine Interpretation date: 11/24/2022 Ordering physician: Isra Masters DO Referring physician: Patient Information Name: Mary Leal ID: [id number] date: 1970 Height ft. in.: 5' 4 [...] Normal gastric transit Normal small bowel transit [id number] transit in the distal bowel consistent delay post anastomosis Signature _Dr. Masters Date _11/24/2022 documented in this encounterFirelands Regional Medical Center South Campus01-17-2023 Miscellaneous Notes* Telephone Encounter - Regina Philippe - 11/22/2022 3:37 PM EST Patient calling to verify that Smart Pill monitor was received at A[facility]. Monitor was sent via Fed [employer] on 11/19/22. Patient is requesting a confirmation. documented in this encounterFirelands Regional Medical Center South Campus01-16-2023 Miscellaneous Notes* Telephone Encounter - Erica Serrano RN - 11/21/2022 9:11 AM EST Supersolid message sent to patient. Prior Sleep study forwarded to MD to review, Order pended for PAP-titration for provider to review and sign if necessary. documented in this encounterFirelands Regional Medical Center South Campus01-16-2023 History and physical note * Yodit Back PA-C - 11/21/2022 8:00 AM EST PREANESTHESIA CONSULT CLINIC TELEHEALTH VISIT Patient has been identified by name and date of : Yes This is a virtual visit using Supersolid video visit. It require patient-provider interaction for [...] in the AM and 4 mg PM jraphowpbrf-wrknfoazv-vbxtnnce (TRELEGY ELLIPTA) 100-62.5-25 mcg Inhale 1 Puff as instructed once daily. No current facility-administered medications for this visit. COVID VACCINATION STATUS: Fully vaccinated REVIEW OF SYSTEMS: Pain Assessment: General: No weight loss, malaise or fevers. Neuro: No history of TIA's, stroke, SUBWAY REPAIR SUPERVISOR tumor, impaired sensorium, hemiplegia, paraplegia or quadraplegia. [...] requiring medication, no history of angina, CHF, [place], cardiac surgery or stents. Denies rest pain, gangrene or revascularization/amputation for PVD. No history of cardiovascular symptoms or problems. + HLD GI: See HPI : No history of dysuria, frequency or incontinence,, stones or chronic kidney disease SECURITY AGENT: Negative for abnormal vaginal bleeding, abnormal vaginal [...] (%) Date Value 06/10/2021 5.9 [facility] Impression/Recommendations ASSESSMENT: HTN (hypertension) Assessment: hx of [...] 8:07 AM PAGER/CONTACT #: documented in this encounterFirelands Regional Medical Center [facility] Campus01-12-2023 Miscellaneous Notes* Addendum Note - Yoni Tuttle MD - 11/17/2022 3:16 PM ESTAddended by: YONI TUTTLE MD on: 11/17/2022 03:16 PM Modules accepted: Orders * Telephone Encounter - Yoni Tuttle MD - 11/17/2022 3:11 PM EST 09/22/22: PSG from [facility]: Total (RDI) AHI by 3% desat 27.1, [...] - 11/02/2022 12:33 PM EST Received from [facility] Sleep [facility] Report via fax. 8 pages indexed to chart. documented in this encounterFirelands Regional Medical Center South Campus01-12-2023 History of Present illness Narrative* Annmarie [...] complete. You will be wearing a Data Bridges And Buildings Supervisor around your neck like a necklace during the test. You must keepthis near you at all times. The Data Bridges And Buildings Supervisor has an EVENT button. You will be [...] is inside your body. Return the Data Bridges And Buildings Supervisor to the [facility] after your test is completed. Brittanie Gillespie RN documented in this encounterFirelands Regional Medical Center [facility] Campus01-09-2023 NotePROCEDURE: XR FOOT RT MIN 3 VIEWS [...] authenticated by: ZAIDA ACOSTA Date: 2022-11-14 10:39[facility] HospitalJkswxcjx71-93-8998 NotePROCEDURE: XR FOOT RT MIN 3 VIEWS [...] Electronically authenticated by: NICKI DACOSTA Date: 2022-11-10 11:44[facility]01-05-2023 Miscellaneous Notes* Telephone Encounter - Annmarie Gillespie RN - 11/10/2022 9:07 AM EST Telephoned patient with SmartPill procedure appointment reminder/instructions. Brittanie Gillespie RN documented in this encounterFirelands Regional Medical Center [facility] Campus01-04-2023 Miscellaneous Notes* Telephone Encounter - Regina Philippe [...] on hold on 01/03 at 1030 - [facility] to make it legit. documented in this encounterFirelands Regional Medical Center [facility] Campus01-04-2023 Miscellaneous Notes* Telephone Encounter - Wali Doll - 11/09/2022 9:47 AM EST SENT PATIENTS RX TO PREFERRED LOCATION [facility] [phone] Wali Doll CMA documented in this encounterFirelands Regional Medical Center [facility]01-03-2023 Miscellaneous Notes* Telephone Encounter - Regina Philippe - 11/08/2022 11:15 AM EST Per Soumya in provider services at [facility]. No prior auth is needed,coverage is active, patient can proceed with Smart Pill. Placed a new referral. Call Ref # [id number] * Telephone Encounter - Regina Philippe - 11/02/2022 3:51 PM EST Spoke with patient. Smart Pill is a covered benefit. Sent email to Smart Pill customer advisor specialist and [facility] to assist in scheduling Smart Pill [...] procedure, she can call Earlene Martin at [phone]. documented in this encounterFirelands Regional Medical Center [facility] Campus12-19-2022 Miscellaneous Notes* Telephone Encounter - Steffi Ross [...] calling: self Call patient at: at home [phone] (home) [phone] (cell) Closing statement: Symptom Call: Thank you for calling [facility], your call is very important. A nurse will call in approximately 2-4 hours during business hours. If this is an emergency, please contact 911. Nati Martinez documented in this encounterFirelands Regional Medical Center [facility] Campus12-13-2022 Miscellaneous Notes* Telephone Encounter - Brooklyn Valle LPN - 10/18/2022 2:43 PM EST Requested Prescriptions Pending Prescriptions Disp Refills Dexlansoprazole 60 mg CpDM [Pharmacy Med Name: DEXLANSOPRAZOLE DR 60 MG CAP] 30 capsule 5 Sig: take 1 capsule by mouth before breakfast Patient last seen 10/11/2022 documented in this encounterFirelands Regional Medical Center [facility] Campus12-12-2022 NotePROCEDURE: XR FOOT RT MIN 3 [...] Date: 2022-10-17 18:06[facility]12-12-2022 NotePROCEDURE: XR FOOT RT MIN 3 VIEWS, [...] Date: 2022-10-17 18:06[facility]12-12-2022 Miscellaneous Notes* Telephone Encounter - Wali Doll - 10/17/2022 9:17 AM EST Faxed order, office notes, demographics, and sleep study to: DME name: [facility] fax: [phone] DME ph: ALSO SENT A REQUEST FOR PTS PSG FROM [facility] IN [place] documented in this encounterFirelands Regional Medical Center [facility] Campus12-06-2022 History of Present illness Narrative* Isra [...] (FLONASE) 50 mcg/actuation nasal spray Use 1 Gypsum in each nostril once daily. carBAMazepine XR (TEGRETOL XR) 400 mg 12 hr tablet Take 400 mg by mouth q 12 HR. ARIPiprazole (ABILIFY) 30 mg tablet Take 30 mg by mouth once daily. albuterol HFA (PROVENTIL HFA, VENTOLIN HFA) 90 mcg/actuation inhaler inhale 2 puffs by mouth INTO THE LUNGS every 4 hours if needed cqbwvseitwp-bkpfprfvz-mkdckzpc (TRELEGY ELLIPTA) 100-62.5-25 mcg Inhale 1 Puff [...] no edema RESPIRATORY: No dyspnea : neg SECURITY AGENT: neg The remainder of the review of [...] Isra Masters DO 10/11/2022 documented in this encounterFirelands Regional Medical Center [facility] Campus12-05-2022 Evaluation note* Encounter Date Diagnosis Assessment Notes [...] for rotator cuff healing or recurrent tear [employer] Other 12-01-2022 Evaluation note* Encounter Date Diagnosis [...] note writ ten by Wanda Yang LPN, Lithoduplicator Operator. Edited and approved by Dr. Beto Snyder MD. [employer] Other 11-17-2022 Evaluation note* Encounter Date Diagnosis [...] educated regarding the risks and benefits of [facility] opioid use. She understands the associated risks [...] note writ ten by Lupillo Amezquita MA, Lithoduplicator Operator. Edited and approved by Dr. Beto Snyder MD. [employer] Other 11-17-2022 Evaluation note* Encounter Date Diagnosis Assessment Notes Treatment Notes Treatment Clinical Notes Sep, Lumbosacral spondylosis without myelopathy (ICD-10 - M47.817) [employer] Other 11-09-2022 Evaluation note* Encounter Date Diagnosis [...] note writ ten by Wanda Yang LPN, Lithoduplicator Operator. Edited and approved by Dr. Beto Snyder MD. [employer] Other 09-21-2022 NotePROCEDURE: XR ANKLE RT MIN 3 VIEWS, XR FOOT RT MIN 3 VIEWS COMPARISON: 01/06/2021 HISTORY: Pain of right ankle joint FINDINGS: BONES:Remote osteotomy head of the first metatarsal fixed with a single screw. No acute fracture or dislocation. SOFT TISSUES:Negative. No visible soft tissue swelling. EFFUSION:None visible. OTHER: Negative. IMPRESSION: No acute abnormality Electronically authenticated by: NICKI DACOSTA Date: 2022-07-27 19:10[facility]09-[facility]22 NotePROCEDURE: XR ANKLE RT MIN 3 VIEWS, XR FOOT RT MIN 3 VIEWS COMPARISON: 01/06/2021 HISTORY: Pain of right ankle joint FINDINGS: BONES:Remote osteotomy head of the first metatarsal fixed with a single screw. No acute fracture or dislocation. SOFT TISSUES:Negative. No visible soft tissue swelling. EFFUSION:None visible. OTHER: Negative. IMPRESSION: No acute abnormality Electronically authenticated by: NICKI DACOSTA Date: 2022-07-27 19:10[facility] [id number] Miscellaneous Notes* Telephone Encounter - Silvia Ybarra - 07/26/2022 2:56 PM EDT PA for Dexlansoprazole initiated electronically. Awaiting response [employer] ID# [id number] * Telephone Encounter - Tracy Khan PSS - 07/26/2022 1:43 PM EDT Patient needs a prior authorization Medication Order name: Dexlansoprazole 60 mg CpDM Medication: DEXLANSOPRAZOLE 60 MG CAPSULE,BIPHASE DELAYED RELEASE [[id number]] Dispense as Written: No documented in this encounterFirelands Regional Medical Center [facility] Campus09-20-2022 History of Present illness Narrative* Mary Obrien [...] in the AM and 4 mg PM uitmhkicnwc-gpkcwlggm-cwxknsyc (TRELEGY ELLIPTA) 100-62.5-25 mcg Inhale 1 Puff [...] (FLONASE) 50 mcg/actuation nasal spray Use 1 Gypsum in each nostril once daily. carBAMazepine XR [...] which included preparing to see the patient, mmrh-xp-tnhg patient care, completing clinical documentation, obtaining and/or reviewing separately obtained history, performing a medically appropriate examination, counseling and educating the pat ient/family/caregiver, ordering medications, tests, or procedures, and care coordination (not separately reported). Mary Obrien MD Colorectal Surgery documented in this encounterFirelands Regional Medical Center [facility] Campus09-20-2022 Nurse Note* Re Sierra MA - 07/26/2022 11:12 AM EDT What is the reason for your visit today? Established patient presents for post op. Who is your referring physician? Are you having poor oral intake? NO Have you had unintentional weight loss of 15 lbs/7 Kg in the last 3-6 months? NO Bowels: Wound: none Temperature: No Drains: No documented in this encounterFirelands Regional Medical Center [facility]08-04-2022 NotePROCEDURE: In the coronal projection, without intravenous [...] and signed by Quinton Carson on 06/09/[address] [place] [address] [id number] Miscellaneous Notes* Telephone Encounter - Raquel Mullen - 06/07/2022 3:34 PM EDT [email or web address] The previous was sent to pharmacy [...] process accordingly. Raquel Mullen documented in this encounterFirelands Regional Medical Center [facility] Campus07-21-2022 Evaluation note* Encounter Date Diagnosis Assessment Notes [...] note writ ten by Lupillo Amezquita MA, Lithoduplicator Operator. Edited and approved by Dr. Beto Snyder MD. [place] [employer] Other 07-05-2022 Evaluation note* Encounter Date Diagnosis [...] Patient care instructions given in writing by [facility] document. [employer] Other [id number] Miscellaneous Notes* Telephone Encounter - Jet Wong [...] concerns at this time. documented in this encounterFirelands Regional Medical Center [facility] Campus06-21-2022 Miscellaneous Notes* Telephone Encounter - Jet Wong [...] procedure on 03/28. Thanks! documented in this encounterFirelands Regional Medical Center South Campus06-17-2022 History of Present illness Narrative* Jessi Sheets [...] (FLONASE) 50 mcg/actuation nasal spray Use 1 Gypsum in each nostril once daily. carBAMazepine XR [...] THE LUNGS every 4 hours if needed ctcpgfumgyb-eqghgeufo-frvkdpqh (TRELEGY ELLIPTA) 100-62.5-25 mcg Inhale 1 Puff [...] Sheets APRN.CNP Colorectal Surgery documented in this encounterFirelands Regional Medical Center [facility] Campus06-17-2022 Nurse Note* Mary Mena MA - 04/22/2022 12:06 PM EDT .What is the reason for your visit today? Post op Who is your referring physician? Self Are you having poor oral intake? NO Have you had unintentional weight loss of 15 lbs/7 Kg in the last 3-6 months? NO Bowels: regular Wound: none Temperature: No Drains: No documented in this encounterFirelands Regional Medical Center [facility]06-02-2022 Miscellaneous Notes* Telephone Encounter - Rachael - 04/07/2022 12:35 AM EDT Record ID: [id number] Patient name: Mary Leal Date: April [birth year], [...] likely is it that you would recommend [facility] to a friend or family member? -> likely Please tell me what you liked best about your hospital experience: -> The nurses documented in this encounterFirelands Regional Medical Center [facility] Campus05-31-2022 NoteHNO ID: [id number] Author: Pravin Ladd MD Service: Colorectal Author Type: Resident Type: Progress Notes Filed: 04/05/2022 7:52 AM Note Text: COLORECTAL SURGERY PROGRESS NOTE Mary Leal [id number] ASSESSMENT AND PLAN Mary Leal is a [...] - General Pravin Ladd MD General Surgery residentMelrosewakefield HospitalEbrsnpgo32-28-6577 NoteHNO ID: [id number] Author: Nita Lamas MD Service: Colorectal Author Type: Fellow Type: Progress Notes Filed: 04/04/2022 9:40 AM Note Text: COLORECTAL SURGERY PROGRESS NOTE Mary D Elvis [id number] ASSESSMENT AND PLAN Mary Leal is a [...] Nita Lamas MD Colorectal Fellow 04/04/2022 9:40 [facility]05-29-2022 NoteHNO ID: [id number] Author: Pravin Ladd MD Service: Colorectal Author Type: Resident Type: Progress Notes Filed: 04/03/2022 8:03 AM Note Text: COLORECTAL SURGERY PROGRESS NOTE Mary Leal [id number] ASSESSMENT AND PLAN Mary Leal is a [...] - General Pravin Ladd MD General Surgery ResidentMelrosewakefield HospitalDrcrxnub13-01-8725 NoteHNO ID: [id number] Author: Nancy Cadena MD Service: Colorectal Author Type: Resident Type: Progress Notes Filed: 04/02/2022 8:34 AM Note Text: COLORECTAL SURGERY PROGRESS NOTE Mary Leal [id number] ASSESSMENT AND PLAN Mary Leal is a [...] Nancy Cadena MD General Surgery Resident, PGY-2 [id number] [id number] NoteHNO ID: [id number] Author: Nancy Cadena MD Service: Colorectal Author [...] 2022 COLORECTAL SURGERY PROGRESS NOTE Mary Leal [id number] ASSESSMENT AND PLAN Mary Leal is a [...] Nancy Cadena MD General Surgery Resident, PGY-2 [id number] [id number] NoteHNO ID: [id number] Author: Yolanda Lamb MD Service: Colorectal Author Type: Resident Type: Progress Notes Filed: 03/31/2022 9:08 AM Note Text: COLORECTAL SURGERY PROGRESS NOTE Mary Leal [id number] ASSESSMENT AND PLAN Mary Leal is a [...] RESECTION AND ANASTOMOSIS - General Yolanda Lamb MDMelrosewakefield HospitalUoyjwvbf36-89-6400 NoteHNO ID: [id number] Author: Pravin Ladd MD Service: Colorectal Author Type: Resident Type: Progress Notes Filed: 03/30/2022 9:02 AM Note Text: Attestation signed by Mary Obrien MD at 03/30/2022 4:01 PM [facility] STAFF PHYSICIAN NOTE [...] 30, 2022 COLORECTAL SURGERY PROGRESS NOTE Mary Kenny Elvis [id number] ASSESSMENT AND PLAN Mary Leal is a 51 year old female with PMHx Asthma, HTN, BPD, Dyslipidemia and colonic inertia who is now s/p Hand assisted TAC, EI takedown + OANH 03/28 - D/C COMPENSATION CONSULTANT - Advance to GI soft diet - [...] RESECTION AND ANASTOMOSIS - General Pravin Ladd MDMelrosewakefield HospitalVpdcqcaf85-96-7652 NoteHNO ID: [id number] Author: ELIZABETH Dias Service: Care Management Author Type: Customer Project Manager Type: Care Mgt Initial Assessment Filed: 03/29/2022 [...] time ADVANCE DIRECTIVES Current Advance Directive: None Track Inspecting Supervisor Attempted to Assist with AD Completion: Yes [...] Housing Stability: Not on file PATIENT SCREEN 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 Stated Goals: To be cured/healed Under the [...] March 29, 2022 TIME: 3:45 PM PHONE: [phone] Nvcqoseg48-14-3301 NoteHNO ID: [id number] Author: Pravin Ladd MD Service: Colorectal Author Type: Resident Type: Progress Notes Filed: 04/01/2022 5:50 AM Note Text: COLORECTAL SURGERY PROGRESS NOTE Mary Leal [id number] ASSESSMENT AND PLAN Mary Leal is a 51 year old female with PMHx Asthma, HTN, BPD, Dyslipidemia and colonic inertia who is now s/p Hand assisted TAC, EI takedown + OANH 03/28 - COMPENSATION CONSULTANT for pain control - Magnesium replacement for [...] RESECTION AND ANASTOMOSIS - General Pravin Ladd MDMelrosewakefield HospitalCtwiklao73-45-4020 NoteHNO ID: [id number] Author: Nathanael Craig DO Service: Anesthesiology Author Type: Anesthesiologist Type: Anesthesia Procedure Notes Filed: 03/28/2022 4:16 PM Note Text: ANESTHESIOLOGY PROCEDURE NOTE Peripheral Nerve Block General Information Procedure Start Time/Medication Administration: 03/28/2022 3:50 PM Procedure End time: 03/28/2022 3:55 PM Patient location during procedure: OR Timeout Performed Pre-procedure: timeout performed Consent Obtained: Yes 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: care seam steamer and arm band Reason for block: post-op [...] 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 and care seam steamer Reason for block: post-op pain management/at surgeon's [...] March 28, 2022 TIME: 4:14 PM CSN: [id number] [id number] NoteHNO ID: [id number] Author: Carmen Stanley APRN.CRNA Service: Anesthesiology Author Type: Nurse Kitchen Operator Type: Anesthesia Procedure Notes Filed: 03/28/2022 9:49 AM Note Text: ANESTHESIOLOGY PROCEDURE NOTE Airway General Information Procedure Start Time/Medication Administration: 03/28/2022 9:21 AM Patient location during procedure: OR 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, care seam steamer and patient Staffing MUSEUM EXHIBIT DESIGNER: Carmen Stanley APRN.MUSEUM EXHIBIT DESIGNER Performed by: BECCA Indications and Patient Condition [...] March 28, 2022 TIME: 9:49 AM CSN: [id number] [id number] NoteHNO ID: [id number] Author: Carmen Stanley APRN.CRNA Service: Anesthesiology Author Type: Nurse Kitchen Operator Type: Anesthesia Procedure Notes Filed: 03/28/2022 [...] March 28, 2022 TIME: 9:48 AM CSN: [id number] [id number] Miscellaneous Notes* Telephone Encounter - Jet Wong [...] colon. Would like a call back at [phone] documented in this encounterFirelands Regional Medical Center [facility]05-10-2022 Miscellaneous Notes* Telephone Encounter - Jnenie Moreno RN - 03/15/2022 2:39 PM EDT Outside medical record EGD H Pylori biopsy received by fax. Scanned into [employer] under scanned documents. Hard copy handed to Dr. Masters. Per Dr Masters- please call patient and let her know the H Pylori biopsy is negative. Called patient . Message relayed. No questions at this time. * Telephone Encounter - Karthikeyan Turk RN - 03/15/2022 2:21 PM EDT Called [facility] and I was transferred to medical records. Requesting a cover sheet with the request result be faxed to them at [phone]. H Pylori result request faxed with confirmation. * Telephone Encounter - Karthikeyan Turk RN - 03/15/2022 2:21 PM EDT Images from the original note were not included. DO Leo Mariano Ddsi Clinical Pool Please contact [facility] [phone] to see if the H pylori biopsy is back yet from her EGD there documented in this encounterFirelands Regional Medical Center [facility]05-10-2022 Evaluation note* Encounter Date Diagnosis Assessment Notes [...] note writ ten by Wanda Yang LPN, Lithoduplicator Operator. Edited and approved by Dr. Beto Snyder MD. [employer] Other 05-10-2022 Miscellaneous Notes* Telephone Encounter - Silvia Ybarra - 03/15/2022 1:24 PM EDT PA for Dexilant renewal initiated through [employer]. Awaiting response ID# [id number] Rx BIN [id number] Rx PCN MCAIDOH Rx Grp [id number] documented in this encounterFirelands Regional Medical Center [facility]05-10-2022 Miscellaneous Notes* Telephone Encounter - Jet Wong RN - 03/15/2022 9:28 AM EDT She called the office with complaints of dark red blood in her ostomy bag for the last 2 weeks. [place]. [place] had [place] in [place] that showed gastritis. She followed up with [...] concerns at this time. documented in this encounterFirelands Regional Medical Center [facility]05-10-2022 History of Present illness Narrative* Isra Masters [...] seem be musculoskeletal in nature.EGD done in [facility] showed some gastritis and duodenitis. Current [...] (FLONASE) 50 mcg/actuation nasal spray Use 1 Gypsum in each nostril once daily. carBAMazepine XR [...] THE LUNGS every 4 hours if needed vvqrefuyywg-rvebjtlgj-fbzoekjl (TRELEGY ELLIPTA) 100-62.5-25 mcg Inhale 1 Puff [...] no edema RESPIRATORY: No dyspnea : neg SECURITY AGENT: neg The remainder of the review of [...] Isra Masters DO 03/15/2022 documented in this encounterFirelands Regional Medical Center [facility]05-09-2022 Instructions* Patient Instructions* Urmila Alexander APRN.ELECTRICAL JOURNEYMAN - 03/14/2022 10:43 AM EDT PATIENT PREOPERATIVE INSTRUCTIONS Mary Obrien MD has scheduled you for your [facility]: [phone] --[id number] [address]. Please check in on the1st floor at [...] Procedures: - YOU MUST HAVE A RESPONSIBLE HEALTHCARE CUSTOMER SERVICE TAKE YOU HOME. A YOUTH TEACHER OR SUPERVISOR LACE TEARING CANNOT BE MADE A RESPONSIBLE HEALTHCARE CUSTOMER SERVICE. - We recommend that a responsible person [...] Advance Directive, please fax a copy to [phone] or email to for it to be [...] your chart that day. documented in this encounterFirelands [facility]-09-[facility]22 History and physical note * Urmila Alexander [...] fevers. Neurological: No history of TIA's, stroke, SUBWAY REPAIR SUPERVISOR tumor, impaired sensorium, hemiplegia, paraplegia orquadraplegia. No [...] > 1 time per night or hematuria. SECURITY AGENT: Negative for abnormal vaginal bleeding, abnormal vaginal [...] every 4 hours if needed Taking Yes mbapmdxuqhm-snzrnlhqv-mudaoxgl (TRELEGY ELLIPTA) 100-62.5-25 mcg Inhale 1 Puff [...] (FLONASE) 50 mcg/actuation nasal spray Use 1 Gypsum in each nostril once daily. No medication [...] or any previous visit (from the past 29182 hour(s)). EKG: Assessment HTN (hypertension) Assessment: Managed [...] of difficult airway No abnormal airway history [id number] Score: Age: <65 Sex: Female Hypertension history: [...] daily. Planned Anesthetic: general [facility] Surgeon ( dated 02/09/2022) CON ABO completed 10/15/2021 Instructions Given to Patient: Instructions located in the after visit summary. Patient given verbal and written preop instructions and voices comprehension and compliance. SIGNATURE: Urmila Alexander APRN.CNP PATIENT NAME: Mary Leal DATE: March 14, 2022 TIME: 10:30 AM PAGER/CONTACT #: documented in this encounterFirelands [facility]04-25-2022 Miscellaneous Notes* Telephone Encounter - Isra Masters [...] Monday, 03/02, at 0900 - routed to [facility] to make it legit. Please advise. documented in this encounterFirelands [facility]04-15-2022 Instructions* Patient Instructions* Nelsy Chávez APRN.CNP - 02/18/2022 1:18 PM EDT Healing as expected from surgery. You have a pinpoint area of suture just under the vaginal epithelium surface that may need more time to fully heal. Please call the office if you would like to try vaginal estrogen cream or with any questions/concerns. documented in this encounterFirelands [facility] Medical [facility]04-15-2022 History of Present illness Narrative* Nelsy Chávez [...] no Pain: no Abnormal Vaginal Discharge: no SECURITY AGENT HISTORY: Last pap: cannot remember; Last mammogram: She has never had a mammogram LMP: No LMP recorded. Patient has had a hysterectomy.; Menopause n/a: Menstrual history: NA; Deliveries: I have confirmed and edited as necessary, the PFSH obtained by others. Nelsy Chávez APRN.ELECTRICAL JOURNEYMAN Housing Project Manager offered: Patient declines. OBJECTIVE: There were [...] if this helps. She is traveling to [place] to see her ailing father for two weeks and would like to wait for now to see if things resolve. She knows she can call the office if she changes her mind and would like to trial vaginal estrogen Nelsy Chávez APRN.KWESI documented in this encounterFirelands [facility]04-08-2022 History of Present illness Narrative* Flaca Puma, [...] 15 Flaca Bartholomew PT documented in this encounterFirelands [facility] Medical [facility]04-05-2022 Nurse Note* Re Sierra MA - 02/08/2022 [...] Temperature: No Drains: No documented in this encounterFirelands Regional Medical Center [facility] Campus04-05-2022 History of Present illness Narrative* Mary Obrien [...] (FLONASE) 50 mcg/actuation nasal spray Use 1 Gypsum in each nostril once daily. carBAMazepine XR [...] THE LUNGS every 4 hours if needed lwgzpffjsir-dnshgmgkw-zbrewzwd (TRELEGY ELLIPTA) 100-62.5-25 mcg Inhale 1 Puff [...] medical complications of surgery including DVT/PE, PNA, [place], stroke, and . The patient understands these risks and is in agreement with proceeding. Medical Decision Making: Data Reviewed: Tests & Documents Reviewed/ordered: Review of prior notes from myself, OR, Dr. Wang Review of prior operative reports I have discussed Mary Leal's treatment plan and/or results with the patient. Mary Obrien MD Colorectal Surgery documented in this encounterFirelands [facility] Medical [facility]04-05-2022 History of Present illness Narrative* Magali Mitchell APRN.ELECTRICAL JOURNEYMAN - 02/08/2022 11:04 AM EDT Female Pelvic [...] you received about pain medications helpful? Yes Housing Project Manager offered:Patient declines OBJECTIVE: BP 113/76 Pulse [...] understanding. Magali Mitchell APRN.KWESI documented in this encounterFirelands Regional Medical [facility]03-29-2022 Miscellaneous Notes* Telephone Encounter - Steffi Ross LPN - 02/01/2022 11:08 AM EDT [place] 06-10-21 Pharmacy and Rx request verified. Please file if appropriate. Thank you Steffi Ross LPN documented in this encounterFirelands Regional Medical [facility]03-28-2022 NoteHNO ID: [id number] Author: Newton Woodward, PT Service: ? Author [...] to Home;Specialty Service Patient transferring care to: [facility]- Flaca Bartholomew SUBJECTIVE: Patient Reason for Visit: [...] untimed codes) : 40 Newton Woodward PT, [facility]03-28-2022 History of Present illness Narrative* Newton [...] to Home;Specialty Service Patient transferring care to: [facility]- Flaca Bartholomew SUBJECTIVE: Patient Reason for Visit: [...] Newton Woodward PT, DPT documented in this encounterFirelands Regional Medical [facility]03-21-2022 NoteHNO ID: [id number] Author: Newton Woodward PT Service: ? Author Type: Physical Therapist Type: Progress Notes Filed: 01/24/2022 1:23 PM Note Text: Episode Visit Count: 2 Therapist That Will Oversee The Plan Of Care: La then transfer to [facility] Start of Care Date: 01/18/22 Onset Date: [...] 47 Newton Woodward PT, [facility]03-15-2022 NoteHNO ID: [id number] Author: Jessi Isaacs, PT Service: ? Author Type: Physical Therapist Type: Progress Notes Filed: 01/18/2022 1:56 PM Note Text: Episode Visit Count: 1 Therapist That Will Oversee The Plan Of Care: [place] then transfer to [facility] Start of Care Date: 01/18/22 Onset Date: [...] Planned: 8 Planned Treatment Interventions: Therapeutic exercise (13535);Neuromuscular re-education (68614);Manual therapy (98728);Therapeutic activities (12615);Self-mcfp management (52149);Patient/Family/Caregiver Education PLAN FOR NEXT VISIT: PFM dynamics; biofeedback Patient demonstrates good understanding of plan of care and treatment. The above goals and plan of care were discussed and agreed upon by patient/family. Transfer of Care Due To: Closer to Home (patient to transfer in February 2022) Patient transferring care to: [facility]- Flaca Bartholomew SUBJECTIVE: Mary Leal is a [...] function/quality of life. 52 (more content not included)...[facility]Xmlgkuql50-25-7488 NoteHNO ID: [id number] Author: Moni Munguia RN Service: Care Management Author Type: Registered Nurse Type: Care Mgt Progress Note Filed: 12/27/2021 4:17 PM Note Text: CARE MANAGEMENT DISCHARGE NOTE SERVICE DATE: 12/27/2021 SERVICE TIME: 4:14 PM LOS: 3 days Admission Date: 12/24/2021 DISCHARGE ARRANGEMENT (list agency and phone number) Discharge Arrangement: Home with Home Health Provider Name: [address] CAREGIVER ASSESSMENT: HANDOFF COMMUNICATION: Handoff to: Primary Care Physician Primary Care Physician Name/Phone: Eliceo Gómez Jr [phone] TRANSPORTATION ARRANGEMENTS: Transportation Arrangements: N/A The Pt is accepted by [address] for new ostomy care. The SOC will be within 24 to 48 hrs. The pt will be contacted directly with the SOC. The Pt verbalized agreement with this dc plan. SIGNATURE: Moni Munguia RN PATIENT NAME: Mary Leal DATE: December 27, 2021 TIME: 4:14 PM PAGER/CONTACT #: [phone] [id number] NoteHNO ID: [id number] Author: Parish Celeste DO Service: Colorectal Author [...] - Pain and nausea control -> d/c COMPENSATION CONSULTANT - D/c entereg - Culturelle - Continue [...] 0659 12/27/21 07 - 12/28/21 0659 Shift 8516-3105 8504-2564 2027-1078 24 Hour Total 7368-4435 9064-0386 2599-4636 24 Hour Total INTAKE PO 60 60 PO 60 60 IV 2100 2100 Volume (mL) (lactated ringers iv infusion) 2100 2100 Shift Total 2160 2160 OUTPUT Urine 7457 301 6315 2300 200 200 Void (ml) 300 1000 1300 200 200 Output ( Indwelling Urinary Catheter 12/24/21 Call 16 Fr) 1000 1000 Emesis 0 0 Emesis (ml) 0 0 Ostomy 250 125 375 Ileostomy 1 250 125 375 # of BMs Number of BMs 0 x 0 x Shift Total 2653 362 9950 2675 200 200 Weight (kg) 82.1 82.1 82.1 82.1 82.1 82.1 82.1 82.1 Recent Labs 12/26/21 0755 12/25/21 0606 WBC -- 5.96 HB -- 11.6 HCT -- 35.2* PLT -- 271 NA 139 141 K 4.0 4.0 CHLOR 102 104 CO2 28 28 CREAT 0.62* 0.72 BUN 10 12 GLUC 71 91 CA 8.5 8.5 Parish Celeste DO General Surgery, PGY-4 [phone] After 6 pm and on the weekends please page [phone] 12-26-2021 NoteHNO ID: [id number] Author: Jenifer Ayala MD Service: Colorectal Author Type: Fellow Type: Progress Notes Filed: 12/26/2021 12:13 PM Note Text: GENERAL SURGERY PROGRESS NOTE Name: Mary Leal 12/26/2021 12:11 PM Interval Events: Patient doing well post-operatively. No acute events overnight. Tolerating CLD diet without nausea or vomiting. Stoma productive of bilious fluid + gas Pain well controlled with COMPENSATION CONSULTANT + oral pain medication (feels most relief from po oxycodone). Assessment and Plan: 51 year old female with pelvic organ prolapse and chronic constipation, likely slow transit but with possible component of pelvic outlet obstruction and with discordant testing. Patient underwent laparoscopic protopexy on 12/24/21 surgery was uneventful. Post-operative course has been uncompliacted. Pain control- Tylenol Gabapentin Toradol COMPENSATION CONSULTANT: Dilaudid, tegretol, klonopin, requip, trintellix, oxycodone Cardiac- [...] any questions or concerns page [facility] Blue [id number] Objective Physical exam: BP 117/66 Pulse 77 [...] 0659 12/26/21 07 - 12/27/21 0659 Shift 5846-9435 2493-9472 9792-8537 24 Hour Total 5725-7465 5880-8427 2639-3063 24 Hour Total INTAKE PO 60 60 PO 60 60 IV 213 668 881 Volume (mL) (lactated ringers iv infusion) 213 668 881 Shift Total 273 668 941 OUTPUT Urine 712 030 0751 1000 Void (ml) 0 0 Output ( Indwelling Urinary Catheter 12/24/21 Call 16 Fr) 710 440 4739 1000 Emesis 0 0 Emesis (ml) 0 0 Ostomy 100 100 Ileostomy 1 100 100 # of BMs Number of BMs 0 x 0 x Shift Total 635 473 2541 1000 Weight (kg) 82.1 82.1 82.1 82.1 [...] Diagnosis Date Noted - Pelvic floor dysfunction 12/24/2021[facility] HospitalWuidzcar39-61-4321 NoteHNO ID: [id number] Author: Sonido Owen MD Service: Colorectal Author [...] been uncompliacted. Pain control- Tylenol Gabapentin Toradol COMPENSATION CONSULTANT: Dilaudid, tegretol, klonopin, requip, trintellix Cardiac- Vitals: [...] Owen MD General Surgery PGY 2 Pg [phone] For any questions or concerns page [facility] Blue [id number] Objective Physical exam: BP 111/61 Pulse 86 [...] 0659 12/25/21 07 - 12/26/21 0659 Shift 3080-0787 7777-1795 3901-6334 24 Hour Total 0074-6198 6335-9883 3571-7348 24 Hour Total INTAKE PO 240 120 360 PO 240 120 360 IV 3100 3100 Volume (mL) (lactated ringers iv infusion) 1800 1800 Volume (mL) (lactated ringers iv infusion) 1300 1300 Shift Total 3100 523 239 4578 OUTPUT Urine 200 758 646 9761 OR Urine Output 200 200 Output ( Indwelling Urinary Catheter 12/24/21 Call 16 Fr) 300 500 800 Emesis 0 0 0 Emesis (ml) 0 0 0 Ostomy 0 0 0 Ileostomy 1 0 0 0 # of BMs Number of BMs 0 x 0 x 0 x Blood 50 50 Estimated Blood loss 50 50 Shift Total 250 939 668 8812 Weight (kg) 82.1 82.1 82.1 82.1 82.1 [...] Diagnosis Date Noted - Pelvic floor dysfunction 12/24/2021[facility] HospitalOkgxjzgo84-09-7164 NoteHNO ID: [id number] Author: Carmen Stanley APRN.CRNA Service: Anesthesiology Author Type: Nurse Kitchen Operator Type: Anesthesia Procedure Notes Filed: 12/24/2021 [...] Imaging Guidance Used: No SIGNATURE: Carmen Stanley APRN.MUSEUM EXHIBIT DESIGNER PATIENT NAME: Mary Leal DATE: December 24, 2021 TIME: 8:44 AM CSN: [id number] NoteHNO ID: [id number] Author: Carmen Stanley APRN.MUSEUM EXHIBIT DESIGNER Service: Anesthesiology Author Type: Nurse Kitchen Operator Type: Anesthesia Procedure Notes Filed: 12/24/2021 8:44 AM Note Text: ANESTHESIOLOGY PROCEDURE NOTE Airway General Information Procedure Start Time/Medication Administration: 12/24/2021 8:22 AM Patient location during procedure: OR 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, care seam steamer and patient Staffing Anesthesiologist: Chayito Ojeda MD MUSEUM EXHIBIT DESIGNER: Carmen Stanley APRN.MUSEUM EXHIBIT DESIGNER Performed by: MUSEUM EXHIBIT DESIGNER and anesthesiologist Indications and Patient Condition Preoxygenated: [...] 1 Airway not difficult SIGNATURE: Carmen Stanley APRN.MUSEUM EXHIBIT DESIGNER PATIENT NAME: Mary Leal DATE: December 24, 2021 TIME: 8:43 AM CSN: [id number] Evaluation note* Encounter Date Diagnosis Assessment Notes [...] note writ ten by Lupillo Amezquita MA, Lithoduplicator Operator. Edited and approved by Dr. Beto Snyder MD. [employer] Other 11-01-2021 Evaluation note* Encounter Date Diagnosis [...] note writ ten by Lupillo Amezquita MA, Lithoduplicator Operator. Edited and approved by Dr. Beto Snyder MD. [employer] Other 10-14-2021 Evaluation note* Encounter Date Diagnosis [...] no improvement in 2 to 3 days. [employer] Other 10-08-2021 Evaluation note* Encounter Date Diagnosis [...] Patient care instructions given in writting by [facility] document [employer] Other 10-07-2021 Evaluation note* Encounter Date Diagnosis [...] Aug, Other chronic pain (ICD-10 - G89.29) [employer] Other 09-22-2021 Evaluation note* Encounter Date Diagnosis [...] Jul, Other chronic pain (ICD-10 - G89.29) [employer] Other 03-01-2021 Note [id number]:127[facility] 01-04-2021 NoteCystoscopy with Botox injection ? Voiding [...] if you have a fever over 100 degrees.[facility] 11-11-2020 NoteChief Complaint Pt is here for [...] Information Dawna Marmolejo MD [address] [place] [address]- [phone] Additional Instructions: F/u in 1yr. Patient Education [...] deficit disorder Bipolar disorder (more content not included)...[facility] Comment on above:Result Comment: Electronically Signed By: Dawna Marmolejo MD\.br\Date and Time Signed: 11/11/2111:16 EST\.br\Electronically Co-Signed By: Christy Gill MA\.br\Date and Time Co-Signed: 11/11/20 12:07 [id number]:127[facility] complaint Narrative - Reported* MARY LEAL is being seen for an initial evaluation of. * 52-year-old female seen in cardiology consultation at the request of her primary care physician forelevated troponin while in [facility] this past spring that was associated with a GI bleed/gastritis. * Patient recently underwent large bowel resection details of which are unknown and I suspect possibly consistent with ulcerative colitis but again unknown pathology. She had a diverting colostomy with3 anastomosis performed. While in [place] with her GI bleed and primarily gastric [...] * I believe minor troponin elevation in [place] was simply at small type II non- [place] troponin elevationrelated to inflammation and gastritis and [...] needed otherwise. [facility] 250 DO Work Phone: Evaluation note* Diagnosis Pelvic floor dysfunction- Primary Pelvic muscle wasting Lack of coordination Follow-up examination after colorectal surgery Follow-up examination, following other surgery documented [facility] this encounter [facility]* Diagnosis Gastroesophageal reflux disease, unspecified whether esophagitis present documented in this encounter [facility]* Diagnosis Follow-up examination after colorectal surgery- Primary Follow-up examination, following other surgery documented in this encounter [facility]* Diagnosis Post-operative state- Primary Other postprocedural status Yeast infection of the skin Candidiasis of skin and nails [facility] Diagnosis Pelvic floor dysfunction- Primary Pelvic muscle wasting Lack of coordination Follow-up examination after colorectal surgery Follow-up examination, following other surgery documented in this encounter [facility]* Diagnosis Postoperative state- Primary Other postprocedural status Attention to ileostomy (HCC) Attention to ileostomy documented in this encounter [facility] note* Diagnosis Preop examination- Primary [...] to ileostomy documented in this encounter [facility] note* Diagnosis Gastroesophageal reflux disease, unspecified whether esophagitis present Chronic idiopathic constipation Unspecified constipation Attention to ileostomy (HCC) Attention to ileostomy [facility]* Diagnosis Follow-up examination after colorectal surgery- Primary Follow-up examination, following other surgery Pelvic floor dysfunction Pelvic muscle wasting documented in this encounter [facility] noteNo InformationNoWiiiWaaa Other evaluation noteNoWiiiWaaa Other evaluation note* Diagnosis Follow-up examination after colorectal surgery- Primary Follow-up examination, following other surgery Periumbilical abdominal pain Abdominal pain, periumbilic Outlet dysfunction constipation Colonic inertia Other functional disorders of intestine documented in this encounter [facility] noteNo assessment information [facility] Work Phone: evaluation note* Diagnosis Gas bloat syndrome- Primary Chronic idiopathic constipation Unspecified constipation Gastroparesis documented in this encounter [facility] note* Diagnosis Gastroesophageal reflux disease, unspecified whether esophagitis present documented in this encounter [facility] note* Diagnosis Gastroparesis- Primary documented in this encounter [facility] note* Diagnosis CHUCKIE (obstructive sleep apnea)- Primary Obstructive sleep apnea (adult) (pediatric) documented in this encounter [facility] note* Diagnosis Pre-op exam- Primary Preoperative examination, unspecified Primary hypertension Unspecified essential hypertension Mild persistent asthma without complication Unspecified asthma Gastroparesis CHUCKIE (obstructive sleep apnea) Obstructive sleep apnea (adult) (pediatric) documented in this encounter [facility] note* Diagnosis CHUCKIE (obstructive sleep apnea)- Primary Obstructive sleep apnea (adult) (pediatric) documented in this encounter [facility] note* Diagnosis Chronic idiopathic constipation- Primary Unspecified constipation Nausea Nausea alone documented in this encounter [facility] note* Diagnosis Gastroesophageal reflux disease with esophagitis without hemorrhage- Primary documented in this encounter [facility] note* Diagnosis Colonic inertia- Primary Other functional disorders of intestine Pelvic floor dysfunction Pelvic muscle wasting Nausea Nausea alone Gastroparesis documented in this encounter [facility] note* Diagnosis Pylorospasm- Primary Functional dyspepsia Dyspepsia and other specified disorders of function of stomach Gastroesophageal reflux disease with esophagitis without hemorrhage documented in this encounter [facility] note* Diagnosis Gastroesophageal reflux disease, unspecified whether esophagitis present documented in this encounter [facility] note* Diagnosis CHUCKIE (obstructive sleep apnea)- Primary Obstructive sleep apnea (adult) (pediatric) documented in this encounter [facility] note* Diagnosis Pylorospasm- Primary Functional dyspepsia Dyspepsia and other specified disorders of function of stomach Gastroesophageal reflux disease with esophagitis without hemorrhage documented in this encounter [facility] note* Diagnosis Gastroparesis- Primary documented in this encounter [facility] note* Diagnosis Preop examination- Primary Preoperative examination, unspecified Nausea Nausea alone CHUCKIE (obstructive sleep apnea) Obstructive sleep apnea (adult) (pediatric) Mild persistent asthma without complication Unspecified asthma Gastroesophageal reflux disease, unspecified whether esophagitis present Gastroparesis documented in this encounter [facility] note* Diagnosis 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 Personal history of other diseases of digestive system documented in this encounter [facility] note* Diagnosis Gastroesophageal reflux disease, unspecified whether esophagitis present documented in this encounter [facility] note* Diagnosis Incomplete bladder emptying- Primary Constipation, unspecified constipation type Urinary urgency Urgency of urination Urinary frequency Nocturia documented in this encounter [facility] note* Diagnosis Upper abdominal pain- Primary Abdominal pain, other specified site documented in this encounter [facility] note* Diagnosis Burning with urination- Primary Dysuria documented in this encounter [facility] note* Diagnosis Bety vaginitis Candidiasis of vulva and vagina documented in this encounter [facility] note* Diagnosis CHUCKIE (obstructive sleep apnea)- Primary Obstructive sleep apnea (adult) (pediatric) Pre-op testing- Primary Unspecified pre-operative examination CHUCKIE (obstructive sleep apnea) Obstructive sleep apnea (adult) (pediatric) [facility]* Diagnosis CHUCKIE (obstructive sleep apnea)- Primary Obstructive sleep apnea (adult) (pediatric) [facility]* Diagnosis Pre-op examination- [...] urge Urge incontinence [facility]* Diagnosis Educational circumstances- Primary Educational circumstance Urinary urgency Urgency of urination Urinary frequency OAB (overactive bladder) Hypertonicity of bladder Urinary incontinence, urge Urge incontinence documented [facility] this [facility]* Diagnosis Post-operative state- Primary Other postprocedural status documented in this encounter [facility] note* Diagnosis Procedure and treatment not carried out for other reasons- Primary documented in this encounter [facility] note* Diagnosis Post-operative state- Primary Other postprocedural status Vaginal burning Other specified symptom associated with female genital organs documented in this encounter [facility] note* Diagnosis Vaginal burning- Primary Other specified symptom associated with female genital organs documented in this encounter [facility] note* Diagnosis [place] grade D esophagitis Early satiety Unintentional weight loss Loss of weight Gastroparesis [facility] this [facility]* Diagnosis Gas bloat syndrome documented in this encounter [facility] note* Diagnosis Pain Generalized pain Pre-op evaluation- [...] apnea (adult) (pediatric) documented [facility] Diagnosis Pre-op evaluation- Primary Preoperative examination, [...] apnea (adult) (pediatric) [facility] [facility] Diagnosis Chronic abdominal pain- Primary Abdominal pain, unspecified site Avoidant-restrictive food intake disorder (ARFID) Bloating Flatulence, eructation, and gas pain Gastroparesis documented [facility] Anxiety- Primary Anxiety state, unspecified documented in this encounter [facility]* Diagnosis Urinary frequency Urinary urgency Urgency of urination Burning with urination Dysuria Erythema Unspecified erythematous condition Chronic vulvitis Unspecified vaginitis and vulvovaginitis Night sweats Generalized hyperhidrosis [facility] Diagnosis Granulation tissue Hymen abnormality [facility]* Diagnosis Degenerative disc disease, cervical- Primary [facility]* Diagnosis PCB (post coital bleeding)- Primary Postcoital bleeding Granulation tissue [facility] Narrative - Reported* Type Description Date [...] see above list Hospitalization History respiratory 02/2020 [employer] Other Histskz general Narrative - ReportedNortImagga Other history general Narrative - Reported* Type [...] see above list Hospitalization History respiratory 02/2020 [employer] Other InstructionsNot on filedocumented in this encounter [facility] SystemInstructionsNot on filedocumented in this encounter [facility] Outpatient Procedure (Routine) - Pending Review Specialty Diagnoses / Procedures Referred By Gustavo salazar Referred To Contact [facility] Diagnoses Gastroparesis Procedures CAPSULE ENDOSCOPY Isra Kitchen DO [facility] [address] [place] [id number] [facility] [address] [place] [address] Referral ID Status Reason Start Date Expiration Date Visits Requested Visits Authorized [id number] Pending Review Auto-Generat ed Referral 10/11/2022 10/11/2023 1 1 [facility] for referral (narrative)* Outpatient Procedure (Routine) - Pending Review Specialty Diagnoses / Procedures Referred By Gustavo salazar Referred To Contact [facility] Diagnoses Chronic idiopathic constipation Procedures SIGMOIDOSCOPY SIGMOIDOSCOPY FLX DX W/COLLJ SPEC BR/WA IF PFRMD Isra Masters DO [facility] [address] [place] [address] [address] Referral ID Status Reason Start Date Expiration Date Visits Requested Visits Authorized [id number] Pending Review Auto-Generat ed Referral 11/30/2022 11/30/2023 1 1 [facility] for referral (narrative)* Outpatient Procedure (Routine) - Pending Review Specialty Diagnoses / Procedures Referred By Gustavo salazar Referred To Contact [facility] Diagnoses Gastroparesis Procedures EGD - THERAPEUTIC, EUS, OR TUBE INTERVENTIONS ESOPHAGOGASTRODUODENOSC OPY TRANSORAL DIAGNOSTIC STOMACH SURGERY PROCEDURE UNLISTED [place] [address] [address] Referral ID Status Reason Start Date Expiration Date Visits Requested Visits Authorized [id number] Pending Review Auto-Generat ed Referral 01/11/2023 01/12/2024 1 1 [facility] for referral (narrative)* Outpatient Procedure (Routine) - Pending Review Specialty Diagnoses / Procedures Referred By Gustavo salazar Referred To Contact [facility] Diagnoses Incomplete bladder emptying Urinary urgency Urinary frequency Nocturia Procedures URODYNAMICS WHI COMPLX CYSTOMETRO W/VOID PRESS&URETHRAL PROFILE Nelsy Chávez, MARKET RESEARCH MANAGER.ELECTRICAL JOURNEYMAN [address] [place] [address] [facility] [address] [facility] [address] Referral ID Status Reason Start Date Expiration Date Visits Requested Visits Authorized [id number] Pending Review Auto-Generat ed Referral 07/31/2023 07/30/2024 1 1 [facility] for referral (narrative)* Consultation (Routine) - Open Specialty Diagnoses / Procedures Referred By Contac t Referred To Contact Family Medicine Diagnoses Upper abdominal pain Lev Ritter APRN ELECTRICAL JOURNEYMAN [address] [place] [address] [facility] [address] [facility] [place] [id number] Referral ID Status Reason Start Date Expiration Date Visits Re quested Visits Authorized [id number] Open 08/12/2023 09/12/2024 1 1 [facility] for referral (narrative)* Consultation (Routine) - New Request Specialty Diagnoses / Procedures Referred By Contac t Referred To Contact Psychology Diagnoses Avoidant-restrictive food intake disorder (ARFID) Chronic abdominal pain Padmaja Llamas MD, PhD [address] [place] [address] [place] [phone] Referral ID Status Reason Start Date Expiration Date V isits Requested Visits Authorized [id number] New Request 08/09/2024 09/03/2025 1 1 * Adjunctive Therapy (Routine) - New Request Specialty Diagnoses / Procedures Referred By Contac t Referred To Contact Nutrition and Dietetics Diagnoses Chronic abdominal pain Bloating Gastroparesis Padmaja Llamas MD, PhD [address] [place], [place] [address] [address] [place] [address] Referral ID Status Reason Start Date Expiration Date V isits Requested Visits Authorized [id number] New Request 08/09/2024 09/03/2025 1 1 * Radiology (Routine) - New Request Specialty Diagnoses / Procedures Referred By Contac t Referred To Contact Diagnoses Chronic abdominal pain Bloating Procedures HYDROGEN (H2) BREATH TEST Padmaja Llamas MD, PhD [address] [place] [address] Referral ID Status Reason Start Date Expiration Date V isits Requested Visits Authorized [id number] New Request 08/09/2024 09/03/[address] NarrativeDISCUSS OTHER OPTIONS PRIOR TO PROCEDURELas Marias LiveOffice Other Reyryp for visit NarrativeRECHECK CERVICAL PAIN DISCUSS PROCEDURENoresearch medical center LiveOffice Other reason for visit Narrative* Outpatient Procedure (Routine) - Closed Specialty Diagnoses / Procedures Referred By Gustavo salazar Referred To Contact [facility] Diagnoses Gastroparesis Procedures GI TRANSIT & PRES RAVINDER WIRELESS CAPSULE W/Isra Kelly DO [address] [place] [address] [facility] [address] [facility] [place] [address] Referral ID Status Reason Start Date Expiration Date Visits Re quested Visits Authorized [id number] Closed 11/08/2022 11/05/2023 1 1 [facility] Summary Purpose Family History No Family History [...] FoundDocuments on File Type Date Recorded Patient 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 Recruiter Expl 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 Advance Directive(s) 10/13/2021 4:09 PM Advance Directive(s) 10/14/2020 8:14 AM Documents on File Type Date Recorded Patient 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 Recruiter Expl 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 Advance Directive(s) 10/13/2021 4:09 PM Advance Directive(s) 10/14/2020 8:14 AM Documents on File Type Date Recorded Patient Seasonal Recruiter Expl anation Advance Directive(s) 03/21/2022 1:42 PM [...] unspecified whether esophagitis present Isra Masters DO [facility] [address] [place] [address] Referral ID Status Reason Start Date Expiration Date Visits Re quested Visits Authorized [id number] Closed 1 1 Referral ID Status Reason Start Date Expiration Date V isits Requested Visits Authorized [id number] Pending Review 1 1 Specialty Diagnoses / Procedures Referred By Gustavo t Referred To Contact CT IMAGING Diagnoses Periumbilical abdominal pain Procedures CT ABD/PEL W IVCON CT ABD & PELVIS W/[place] [address] [place] [address] Ct Imaging Referral ID Status Reason Start Date Expiration Date Visits Requested Visits Authorized [id number] Pending Review Auto-Generat ed Referral 08/02/2022 08/25/2023 1 1 Reason BILATERAL SHOULDER P AIN Diagnosis 1 Shoulder pain (M25.5 19) Referral Organization [facility] Referring Provider First Name Beto Referring Provider Last Name Steven Referring Provider Specialty Pain Medici ne Referred Organization [facility] Referred Provider Beto Cartagena Referred Address [address] [facility] [place],[address] Referred Provider Specialty Orthopedic S urgery Referral Priority Routine Referral Appointment Date 2022-10-10 General Notes Kim Manley 10:01:46 AM >patient already scheduled with [facility] 10/10/22 at 1:30pm. Sending p2p at this time Referral ID Status Reason Start Date Expiration Date Visits Re quested Visits Authorized [id number] Closed 1 1 Specialty Diagnoses / Procedures Referred By Gustavo salazar Referred To Contact Diagnoses [place] grade D esophagitis Early satiety Unintentional weight loss Gastroparesis Procedures DIAGNOSTIC UPPER ENDOSCOPY CT ESOPHAGOGASTRODUODENOSCOPY TRANSORAL DIAGNOSTIC Padmaja Llamas MD, PhD [address] [place] [address] Referral ID Status Reason Start Date Expiration Date V isits Requested Visits Authorized [id number] New Request 03/06/2024 03/31/2025 1 1 Chief Complaint and Reason for Visit Chief Complaint M25.519 M25.569 R52 Chief Complaint M25.519 M25.569 R52 bilateral shoulder pain Chief Complaint M76.821/right foor p ain Chief Complaint M76.821/right foor p ain chest tightness dizzy sob Chief Complaint r11.0 r10.11 Chief Complaint M76.71 Chief Complaint M76.71 Unknown Chief Complaint Admit Date cervical spondylosis, radiculopathy Elba forman 2023 2:53pm Chief Complaint * Patient is a 53-year-old female who returns at the request of her primary care physician with episodic chest discomfort associated weakness, dizziness, diaphoresis with recent work-up that [facility] emergency room. Reportedly her troponins are [...] currently being investigated at [facility] (now her fourth GI specialist). * Last year while in [place] she had similar issues with elevated troponins in the ED and underwent heart catheterization that did not reveal any specific significant disease, details of the discharge summary are reviewed * She underwent recent stress perfusion imaging at [facility], the report is reviewed, she hasno evidence [...] investigate the troponin rise at [facility] however I believe this is likely a non- [place] troponin elevation, likely associated withunderlying inflammatory bowel disease. We will follow-up on a as needed basis unless further objective data come to light * Patient is a 53-year-old female who returns at the request of her primary care physician with episodic chest discomfort associated weakness, dizziness, diaphoresis with recent work-up that [facility] emergency room. Reportedly her troponins are [...] currently being investigated at [facility] (now her fourth GI specialist). * Last year while in [place] she had similar issues with elevated troponins in the ED and underwent heart catheterization that did not reveal any specific significant disease, details of the discharge summary are reviewed * She underwent recent stress perfusion imaging at [facility], the report is reviewed, she hasno evidence [...] investigate the troponin rise at [facility] however I believe this is likely a non- [place] troponin elevation, likely associated withunderlying inflammatory bowel disease. We will follow-up on a as needed basis unless further objective data come to light Additional Source Comments INFORMATION SOURCE (unrecogn ized section and content) DATE CREATED AUTHOR 07/08/2021 [facility] DATE CREATED AUTHOR AUTHOR'S JAMES ATKEVYN 11/18/2021 [facility] DATE CREATED AUTHOR AUTHOR'S ORGANIZ ATION 02/01/2022 [facility] DATE CREATED AUTHOR AUTHOR'S ORGANIZ ATION 04/05/2022 [facility] DATE CREATED AUTHOR AUTHOR'S ORGANIZ ATION 09/29/2022 [facility] DATE CREATED AUTHOR AUTHOR'S ORGANIZ ATION 12/09/2022 [facility] DATE CREATED AUTHOR AUTHOR'S ORGANIZ ATION 04/16/2023 [facility] DATE CREATED AUTHOR AUTHOR'S ORGANIZ ATION 06/14/2023 [facility] DATE CREATED AUTHOR AUTHOR'S ORGANIZ ATION 08/14/2023 [facility] DATE CREATED AUTHOR AUTHOR'S ORGANIZ ATION 09/02/2023 [facility] DATE CREATED AUTHOR AUTHOR'S ORGANIZ ATION 10/27/2023 [facility] DATE CREATED AUTHOR AUTHOR'S ORGANIZ ATION [facility]/11/2024 [facility] DATE CREATED AUTHOR AUTHOR'S ORGANIZ ATION 01/26/2024 [facility] DATE CREATED AUTHOR AUTHOR'S ORGANIZ ATION 03/16/2024 [facility] DATE CREATED AUTHOR AUTHOR'S ORGANIZ ATION 05/31/2024 [facility] DATE CREATED AUTHOR AUTHOR'S ORGANIZ ATION 08/09/2024 [facility] DATE CREATED AUTHOR AUTHOR'S ORGANIZ ATION 09/04/2024 [facility] DATE CREATED AUTHOR AUTHOR'S ORGANIZ ATION 09/29/2024 [facility] DATE CREATED AUTHOR AUTHOR'S ORGANIZ ATION 09/29/2024 [facility] EPIC Source Comments (unrecognize d section and content) In the event this informatio n is protected by the Federal Confidentiality of Alcohol and Drug Abuse Patient Records regulations: The Federal rules restrict any use of the information to criminally investigate or prosecute any alcohol or drug abuse patient.[facility] CampusIn the event this information is protected by the Federal Confidentiality of Alcohol and Drug Abuse Patient Records regulations: The Federal rules restrict any use of the information to criminally investigate or prosecute any alcohol or drug abuse patient.[facility] CampusIn the event this information is protected by the Federal Confidentiality of Alcohol and Drug Abuse Patient Records regulations: The Federal rules restrict any use of the information to criminally investigate or prosecute any alcohol or drug abuse patient.[facility] CampusIn the event this information is protected by the Federal Confidentiality of Alcohol and Drug Abuse Patient Records regulations: The Federal rules restrict any use of the information to criminally investigate or prosecute any alcohol or drug abuse patient.[facility] CampusIn the event this information is protected by the Federal Confidentiality of Alcohol and Drug Abuse Patient Records regulations: The Federal rules restrict any use of the information to criminally investigate or prosecute any alcohol or drug abuse patient.[facility] CampusIn the event this information is protected by the Federal Confidentiality of Alcohol and Drug Abuse Patient Records regulations: The Federal rules restrict any use of the information to criminally investigate or prosecute any alcohol or drug abuse patient.[facility] CampusIn the event this information is protected by the Federal Confidentiality of Alcohol and Drug Abuse Patient Records regulations: The Federal rules restrict any use of the information to criminally investigate or prosecute any alcohol or drug abuse patient.[facility] CampusIn the event this information is protected by the Federal Confidentiality of Alcohol and Drug Abuse Patient Records regulations: The Federal rules restrict any use of the information to criminally investigate or prosecute any alcohol or drug abuse patient.[facility] CampusIn the event this information is protected by the Federal Confidentiality of Alcohol and Drug Abuse Patient Records regulations: The Federal rules restrict any use of the information to criminally investigate or prosecute any alcohol or drug abuse patient.[facility] CampusIn the event this information is protected by the Federal Confidentiality of Alcohol and Drug Abuse Patient Records regulations: The Federal rules restrict any use of the information to criminally investigate or prosecute any alcohol or drug abuse patient.[facility] CampusIn the event this information is protected by the Federal Confidentiality of Alcohol and Drug Abuse Patient Records regulations: The Federal rules restrict any use of the information to criminally investigate or prosecute any alcohol or drug abuse patient.[facility] CampusIn the event this information is protected by the Federal Confidentiality of Alcohol and Drug Abuse Patient Records regulations: The Federal rules restrict any use of the information to criminally investigate or prosecute any alcohol or drug abuse patient.[facility] CampusIn the event this information is protected by the Federal Confidentiality of Alcohol and Drug Abuse Patient Records regulations: The Federal rules restrict any use of the information to criminally investigate or prosecute any alcohol or drug abuse patient.[facility] CampusIn the event this information is protected by the Federal Confidentiality of Alcohol and Drug Abuse Patient Records regulations: The Federal rules restrict any use of the information to criminally investigate or prosecute any alcohol or drug abuse patient.[facility] CampusIn the event this information is protected by the Federal Confidentiality of Alcohol and Drug Abuse Patient Records regulations: The Federal rules restrict any use of the information to criminally investigate or prosecute any alcohol or drug abuse patient.[facility] CampusIn the event this information is protected by the Federal Confidentiality of Alcohol and Drug Abuse Patient Records regulations: The Federal rules restrict any use of the information to criminally investigate or prosecute any alcohol or drug abuse patient.[facility] CampusIn the event this information is protected by the Federal Confidentiality of Alcohol and Drug Abuse Patient Records regulations: The Federal rules restrict any use of the information to criminally investigate or prosecute any alcohol or drug abuse patient.[facility] CampusIn the event this information is protected by the Federal Confidentiality of Alcohol and Drug Abuse Patient Records regulations: The Federal rules restrict any use of the information to criminally investigate or prosecute any alcohol or drug abuse patient.[facility] CampusIn the event this information is protected by the Federal Confidentiality of Alcohol and Drug Abuse Patient Records regulations: The Federal rules restrict any use of the information to criminally investigate or prosecute any alcohol or drug abuse patient.[facility] CampusIn the event this information is protected by the Federal Confidentiality of Alcohol and Drug Abuse Patient Records regulations: The Federal rules restrict any use of the information to criminally investigate or prosecute any alcohol or drug abuse patient.[facility] CampusIn the event this information is protected by the Federal Confidentiality of Alcohol and Drug Abuse Patient Records regulations: The Federal rules restrict any use of the information to criminally investigate or prosecute any alcohol or drug abuse patient.[facility] CampusIn the event this information is protected by the Federal Confidentiality of Alcohol and Drug Abuse Patient Records regulations: The Federal rules restrict any use of the information to criminally investigate or prosecute any alcohol or drug abuse patient.[facility] CampusIn the event this information is protected by the Federal Confidentiality of Alcohol and Drug Abuse Patient Records regulations: The Federal rules restrict any use of the information to criminally investigate or prosecute any alcohol or drug abuse patient.[facility] CampusIn the event this information is protected by the Federal Confidentiality of Alcohol and Drug Abuse Patient Records regulations: The Federal rules restrict any use of the information to criminally investigate or prosecute any alcohol or drug abuse patient.[facility] CampusIn the event this information is protected by the Federal Confidentiality of Alcohol and Drug Abuse Patient Records regulations: The Federal rules restrict any use of the information to criminally investigate or prosecute any alcohol or drug abuse patient.[facility] CampusIn the event this information is protected by the Federal Confidentiality of Alcohol and Drug Abuse Patient Records regulations: The Federal rules restrict any use of the information to criminally investigate or prosecute any alcohol or drug abuse patient.[facility] CampusIn the event this information is protected by the Federal Confidentiality of Alcohol and Drug Abuse Patient Records regulations: The Federal rules restrict any use of the information to criminally investigate or prosecute any alcohol or drug abuse patient.[facility] CampusIn the event this information is protected by the Federal Confidentiality of Alcohol and Drug Abuse Patient Records regulations: The Federal rules restrict any use of the information to criminally investigate or prosecute any alcohol or drug abuse patient.[facility] CampusIn the event this information is protected by the Federal Confidentiality of Alcohol and Drug Abuse Patient Records regulations: The Federal rules restrict any use of the information to criminally investigate or prosecute any alcohol or drug abuse patient.[facility] CampusIn the event this information is protected by the Federal Confidentiality of Alcohol and Drug Abuse Patient Records regulations: The Federal rules restrict any use of the information to criminally investigate or prosecute any alcohol or drug abuse patient.[facility] CampusIn the event this information is protected by the Federal Confidentiality of Alcohol and Drug Abuse Patient Records regulations: The Federal rules restrict any use of the information to criminally investigate or prosecute any alcohol or drug abuse patient.[facility] CampusIn the event this information is protected by the Federal Confidentiality of Alcohol and Drug Abuse Patient Records regulations: The Federal rules restrict any use of the information to criminally investigate or prosecute any alcohol or drug abuse patient.[facility] CampusIn the event this information is protected by the Federal Confidentiality of Alcohol and Drug Abuse Patient Records regulations: The Federal rules restrict any use of the information to criminally investigate or prosecute any alcohol or drug abuse patient.[facility] CampusIn the event this information is protected by the Federal Confidentiality of Alcohol and Drug Abuse Patient Records regulations: The Federal rules restrict any use of the information to criminally investigate or prosecute any alcohol or drug abuse patient.[facility] CampusIn the event this information is protected by the Federal Confidentiality of Alcohol and Drug Abuse Patient Records regulations: The Federal rules restrict any use of the information to criminally investigate or prosecute any alcohol or drug abuse patient.[facility] CampusIn the event this information is protected by the Federal Confidentiality of Alcohol and Drug Abuse Patient Records regulations: The Federal rules restrict any use of the information to criminally investigate or prosecute any alcohol or drug abuse patient.[facility] CampusIn the event this information is protected by the Federal Confidentiality of Alcohol and Drug Abuse Patient Records regulations: The Federal rules restrict any use of the information to criminally investigate or prosecute any alcohol or drug abuse patient.[facility] CampusIn the event this information is protected by the Federal Confidentiality of Alcohol and Drug Abuse Patient Records regulations: The Federal rules restrict any use of the information to criminally investigate or prosecute any alcohol or drug abuse patient.[facility] CampusIn the event this information is protected by the Federal Confidentiality of Alcohol and Drug Abuse Patient Records regulations: The Federal rules restrict any use of the information to criminally investigate or prosecute any alcohol or drug abuse patient.[facility] CampusIn the event this information is protected by the Federal Confidentiality of Alcohol and Drug Abuse Patient Records regulations: The Federal rules restrict any use of the information to criminally investigate or prosecute any alcohol or drug abuse patient.[facility] CampusIn the event this information is protected by the Federal Confidentiality of Alcohol and Drug Abuse Patient Records regulations: The Federal rules restrict any use of the information to criminally investigate or prosecute any alcohol or drug abuse patient.[facility] CampusIn the event this information is protected by the Federal Confidentiality of Alcohol and Drug Abuse Patient Records regulations: The Federal rules restrict any use of the information to criminally investigate or prosecute any alcohol or drug abuse patient.[facility] CampusIn the event this information is protected by the Federal Confidentiality of Alcohol and Drug Abuse Patient Records regulations: The Federal rules restrict any use of the information to criminally investigate or prosecute any alcohol or drug abuse patient.[facility] CampusIn the event this information is protected by the Federal Confidentiality of Alcohol and Drug Abuse Patient Records regulations: The Federal rules restrict any use of the information to criminally investigate or prosecute any alcohol or drug abuse patient.[facility] CampusIn the event this information is protected by the Federal Confidentiality of Alcohol and Drug Abuse Patient Records regulations: The Federal rules restrict any use of the information to criminally investigate or prosecute any alcohol or drug abuse patient.[facility] CampusIn the event this information is protected by the Federal Confidentiality of Alcohol and Drug Abuse Patient Records regulations: The Federal rules restrict any use of the information to criminally investigate or prosecute any alcohol or drug abuse patient.[facility] CampusIn the event this information is protected by the Federal Confidentiality of Alcohol and Drug Abuse Patient Records regulations: The Federal rules restrict any use of the information to criminally investigate or prosecute any alcohol or drug abuse patient.[facility] CampusIn the event this information is protected by the Federal Confidentiality of Alcohol and Drug Abuse Patient Records regulations: The Federal rules restrict any use of the information to criminally investigate or prosecute any alcohol or drug abuse patient.[facility] CampusIn the event this information is protected by the Federal Confidentiality of Alcohol and Drug Abuse Patient Records regulations: The Federal rules restrict any use of the information to criminally investigate or prosecute any alcohol or drug abuse patient.[facility] CampusIn the event this information is protected by the Federal Confidentiality of Alcohol and Drug Abuse Patient Records regulations: The Federal rules restrict any use of the information to criminally investigate or prosecute any alcohol or drug abuse patient.[facility] CampusIn the event this information is protected by the Federal Confidentiality of Alcohol and Drug Abuse Patient Records regulations: The Federal rules restrict any use of the information to criminally investigate or prosecute any alcohol or drug abuse patient.[facility] CampusIn the event this information is protected by the Federal Confidentiality of Alcohol and Drug Abuse Patient Records regulations: The Federal rules restrict any use of the information to criminally investigate or prosecute any alcohol or drug abuse patient.[facility] CampusIn the event this information is protected by the Federal Confidentiality of Alcohol and Drug Abuse Patient Records regulations: The Federal rules restrict any use of the information to criminally investigate or prosecute any alcohol or drug abuse patient.[facility] CampusIn the event this information is protected by the Federal Confidentiality of Alcohol and Drug Abuse Patient Records regulations: The Federal rules restrict any use of the information to criminally investigate or prosecute any alcohol or drug abuse patient.[facility] CampusIn the event this information is protected by the Federal Confidentiality of Alcohol and Drug Abuse Patient Records regulations: The Federal rules restrict any use of the information to criminally investigate or prosecute any alcohol or drug abuse patient.[facility] CampusIn the event this information is protected by the Federal Confidentiality of Alcohol and Drug Abuse Patient Records regulations: The Federal rules restrict any use of the information to criminally investigate or prosecute any alcohol or drug abuse patient.[facility] CampusIn the event this information is protected by the Federal Confidentiality of Alcohol and Drug Abuse Patient Records regulations: The Federal rules restrict any use of the information to criminally investigate or prosecute any alcohol or drug abuse patient.[facility] CampusIn the event this information is protected by the Federal Confidentiality of Alcohol and Drug Abuse Patient Records regulations: The Federal rules restrict any use of the information to criminally investigate or prosecute any alcohol or drug abuse patient.[facility] CampusIn the event this information is protected by the Federal Confidentiality of Alcohol and Drug Abuse Patient Records regulations: The Federal rules restrict any use of the information to criminally investigate or prosecute any alcohol or drug abuse patient.[facility] CampusIn the event this information is protected by the Federal Confidentiality of Alcohol and Drug Abuse Patient Records regulations: The Federal rules restrict any use of the information to criminally investigate or prosecute any alcohol or drug abuse patient.[facility] CampusIn the event this information is protected by the Federal Confidentiality of Alcohol and Drug Abuse Patient Records regulations: The Federal rules restrict any use of the information to criminally investigate or prosecute any alcohol or drug abuse patient.[facility] CampusIn the event this information is protected by the Federal Confidentiality of Alcohol and Drug Abuse Patient Records regulations: The Federal rules restrict any use of the information to criminally investigate or prosecute any alcohol or drug abuse patient.[facility] CampusIn the event this information is protected by the Federal Confidentiality of Alcohol and Drug Abuse Patient Records regulations: The Federal rules restrict any use of the information to criminally investigate or prosecute any alcohol or drug abuse patient.[facility] CampusIn the event this information is protected by the Federal Confidentiality of Alcohol and Drug Abuse Patient Records regulations: The Federal rules restrict any use of the information to criminally investigate or prosecute any alcohol or drug abuse patient.[facility] CampusIn the event this information is protected by the Federal Confidentiality of Alcohol and Drug Abuse Patient Records regulations: The Federal rules restrict any use of the information to criminally investigate or prosecute any alcohol or drug abuse patient.[facility] CampusIn the event this information is protected by the Federal Confidentiality of Alcohol and Drug Abuse Patient Records regulations: The Federal rules restrict any use of the information to criminally investigate or prosecute any alcohol or drug abuse patient.[facility] CampusIn the event this information is protected by the Federal Confidentiality of Alcohol and Drug Abuse Patient Records regulations: The Federal rules restrict any use of the information to criminally investigate or prosecute any alcohol or drug abuse patient.[facility] CampusIn the event this information is protected by the Federal Confidentiality of Alcohol and Drug Abuse Patient Records regulations: The Federal rules restrict any use of the information to criminally investigate or prosecute any alcohol or drug abuse patient.[facility] CampusIn the event this information is protected by the Federal Confidentiality of Alcohol and Drug Abuse Patient Records regulations: The Federal rules restrict any use of the information to criminally investigate or prosecute any alcohol or drug abuse patient.[facility] CampusIn the event this information is protected by the Federal Confidentiality of Alcohol and Drug Abuse Patient Records regulations: The Federal rules restrict any use of the information to criminally investigate or prosecute any alcohol or drug abuse patient.[facility] CampusIn the event this information is protected by the Federal Confidentiality of Alcohol and Drug Abuse Patient Records regulations: The Federal rules restrict any use of the information to criminally investigate or prosecute any alcohol or drug abuse patient.[facility] CampusIn the event this information is protected by the Federal Confidentiality of Alcohol and Drug Abuse Patient Records regulations: The Federal rules restrict any use of the information to criminally investigate or prosecute any alcohol or drug abuse patient.[facility] CampusIn the event this information is protected by the Federal Confidentiality of Alcohol and Drug Abuse Patient Records regulations: The Federal rules restrict any use of the information to criminally investigate or prosecute any alcohol or drug abuse patient.[facility] CampusIn the event this information is protected by the Federal Confidentiality of Alcohol and Drug Abuse Patient Records regulations: The Federal rules restrict any use of the information to criminally investigate or prosecute any alcohol or drug abuse patient.[facility] CampusIn the event this information is protected by the Federal Confidentiality of Alcohol and Drug Abuse Patient Records regulations: The Federal rules restrict any use of the information to criminally investigate or prosecute any alcohol or drug abuse patient.[facility] CampusIn the event this information is protected by the Federal Confidentiality of Alcohol and Drug Abuse Patient Records regulations: The Federal rules restrict any use of the information to criminally investigate or prosecute any alcohol or drug abuse patient.[facility] CampusIn the event this information is protected by the Federal Confidentiality of Alcohol and Drug Abuse Patient Records regulations: The Federal rules restrict any use of the information to criminally investigate or prosecute any alcohol or drug abuse patient.[facility] CampusIn the event this information is protected by the Federal Confidentiality of Alcohol and Drug Abuse Patient Records regulations: The Federal rules restrict any use of the information to criminally investigate or prosecute any alcohol or drug abuse patient.[facility] CampusIn the event this information is protected by the Federal Confidentiality of Alcohol and Drug Abuse Patient Records regulations: The Federal rules restrict any use of the information to criminally investigate or prosecute any alcohol or drug abuse patient.[facility] CampusIn the event this information is protected by the Federal Confidentiality of Alcohol and Drug Abuse Patient Records regulations: The Federal rules restrict any use of the information to criminally investigate or prosecute any alcohol or drug abuse patient.[facility] CampusIn the event this information is protected by the Federal Confidentiality of Alcohol and Drug Abuse Patient Records regulations: The Federal rules restrict any use of the information to criminally investigate or prosecute any alcohol or drug abuse patient.[facility] CampusIn the event this information is protected by the Federal Confidentiality of Alcohol and Drug Abuse Patient Records regulations: The Federal rules restrict any use of the information to criminally investigate or prosecute any alcohol or drug abuse patient.[facility] CampusIn the event this information is protected by the Federal Confidentiality of Alcohol and Drug Abuse Patient Records regulations: The Federal rules restrict any use of the information to criminally investigate or prosecute any alcohol or drug abuse patient.[facility] CampusIn the event this information is protected by the Federal Confidentiality of Alcohol and Drug Abuse Patient Records regulations: The Federal rules restrict any use of the information to criminally investigate or prosecute any alcohol or drug abuse patient.[facility] CampusIn the event this information is protected by the Federal Confidentiality of Alcohol and Drug Abuse Patient Records regulations: The Federal rules restrict any use of the information to criminally investigate or prosecute any alcohol or drug abuse patient.[facility] CampusIn the event this information is protected by the Federal Confidentiality of Alcohol and Drug Abuse Patient Records regulations: The Federal rules restrict any use of the information to criminally investigate or prosecute any alcohol or drug abuse patient.[facility] CampusIn the event this information is protected by the Federal Confidentiality of Alcohol and Drug Abuse Patient Records regulations: The Federal rules restrict any use of the information to criminally investigate or prosecute any alcohol or drug abuse patient.[facility] CampusIn the event this information is protected by the Federal Confidentiality of Alcohol and Drug Abuse Patient Records regulations: The Federal rules restrict any use of the information to criminally investigate or prosecute any alcohol or drug abuse patient.[facility] Reason for Visit (unrecogniz ed section and content) Reason Comments Physical Therapy Specialty Diagnoses / Procedures Referred By Gustavo salazar Referred To Contact [facility] Diagnoses Follow-up examination after colorectal surgery Procedures CONSULT TO PHYSICAL THERAPY PHYSICAL THERAPY EVALUATION HIGH COMPLEX [place] [address] [place] [address] [facility] [address] [place] [address] Referral ID Status Reason Start Date Expiration Date Visits Requested Visits Authorized [id number] Authorized Auto-Generat ed Referral 01/04/2022 11/05/2022 30 30 Reason Comments Refill Request dexlansoprazole Reason Comments Established Patient Follow-Up Reason Comments Post Op Reason Comments Established Patient Reason Comments Appointment for script refill Reason Comments Gastroparesis 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 Reason Comments Medication 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 PA [...] ESOPHAGUS DOUBLE CONTRAST [place]UDY [place] [address] Xr Imaging Referral ID Status Reason Start Date Expiration Date V isits Requested Visits Authorized [id number] Closed Auto-Generate d Referral 11/17/2022 12/17/2023 1 [...] ABD & [place] W/[place] [address] [place] [address] [address] [facility] Referral ID Status Reason Start Date Expiration Date V isits Requested Visits Authorized [id number] Closed Auto-Generate d Referral 07/28/2022 11/05/2022 2 [...] By Contac t Referred To Contact Diagnoses [place] grade D esophagitis Early satiety Unintentional weight loss Gastroparesis Procedures DIAGNOSTIC UPPER ENDOSCOPY CT ESOPHAGOGASTRODUODENOSCOPY TRANSORAL DIAGNOSTIC Padmaja Llamas MD, PhD [address] [place] [address] Referral ID Status Reason Start Date Expiration Date V isits Requested Visits Authorized [id number] New Request 03/06/2024 03/31/2025 1 1 Specialty Diagnoses / Procedures Referred By Contac t Referred To Contact Orthopedics / ORTHOPAEDIC SURGERY Diagnoses shoulder pain right pt will hand carry MRI Procedures POLI ACUTE Self Ryan Lynne MD [address] [facility] [place] [address] Referral ID Status Reason Start Date Expiration Date V isits Requested Visits Authorized [id number] Closed Financial Clearance Not Required 09/06/2020 10/05/2020 99 99 Reason Comments Follow-up 6 months follow-up Reason Comments Follow-up C/o ongoing burning sensation when urinating and hot flushes. Using Estrace cream twice weekly as advised. Bladder Problem States waking up at night, feeling like she has to go but unable to start a stream, frequency, burning. Requested UA- negative. Reason Comments Gynecologic Exam C/o bleeding after i ntercourse. LMP: LAVH BS 2014. Reason Comments Follow-up [place] silver nitrate for granulation. States bright red bleeding Monday after intercourse. Not actively bleeding since then. Care Teams (unrecognized sec tion and content) Team Status: Active Member Role Status Dates Shannon Gómez DO Primary Care Provider Active Team Status: Inactive Member Role Status Dates Shannon Gómez DO Primary Care Provider Active Niecy Duron PA-C Attending Provider Active Die Maintenance Technician Relationship Specialty Start Date End Date Eliceo Gómez Jr. [address] [place] [address] PCP - General Family Practice 10/14/20 Die Maintenance Technician Relationship Specialty Start Date End Date Eliceo Gómez Jr. [address] [place] [address] PCP - General Family Practice 10/14/20 Die Maintenance Technician Relationship Specialty Start Date End Date Eliceo Gómez Jr. [address] [place] [address] PCP - General Family Practice 10/14/20 Die Maintenance Technician Relationship Specialty Start Date End Date Eliceo Gómez Jr. [address] [place] [address] PCP - General Family Practice 10/14/20 Die Maintenance Technician Relationship Specialty Start Date End Date Eliceo Gómez Jr. [address] [place] [address] PCP - General Family Practice 10/14/20 Die Maintenance Technician Relationship Specialty Start Date End Date Eliceo Gómez Jr. [address] [place] [address] PCP - General Family Practice 10/14/20 Gwendolyn Stroud [address] [place] [address] Family Practice 03/14/22 Die Maintenance Technician Relationship Specialty Start Date End Date Eliceo Gómez Jr. [address] [place] [address] PCP - General Family Practice 10/14/20 Gwendolyn Stroud [address] [place] [address] Family Practice 03/14/22 Die Maintenance Technician Relationship Specialty Start Date End Date Eliceo Gómez Jr. [address] [place] [address] PCP - General Family Practice 10/14/20 Gwendolyn Stroud [address] [place] [address] Family Practice 03/14/22 Die Maintenance Technician Relationship Specialty Start Date End Date Eliceo Gómez Jr. [address] [place] [address] PCP - General Family Practice 10/14/20 Gwendolyn Stroud [address] [place] [address] Family Practice 03/14/22 Die Maintenance Technician Relationship Specialty Start Date End Date Eliceo Gómez Jr. [address] [place] [address] PCP - General Family Practice 10/14/20 Gwendolyn Stroud [address] [place] [address] Family Practice 03/14/22 Die Maintenance Technician Relationship Specialty Start Date End Date StephonEliceo ahuja Jr. [address] [place] [address] PCP - General Family Practice 10/14/20 Gwendolyn Stroud [address] [place] [address] Family Practice 03/14/22 Die Maintenance Technician Relationship Specialty Start Date End Date StephonEliceo ahuja Jr. [address] [place] [address] PCP - General Family Practice 10/14/20 Gwendolyn Stroud, [facility] Family Practice 03/14/22 Die Maintenance Technician Relationship Specialty Start Date End Date Eliceo Gómez Jr. [address] [place] [address] PCP - General Family Practice 10/14/20 Gwendolyn Stroud, [employer] Family Practice 03/14/22 Die Maintenance Technician Relationship Specialty Start Date End Date Eliceo Gómez Jr. [address] [place] [address] PCP - General Family Practice 10/14/20 Gwendolyn Stroud, [employer] Family Practice 03/14/22 Die Maintenance Technician Relationship Specialty Start Date End Date Eliceo Gómez Jr. [address] [place] [address] PCP - General Family Practice 10/14/20 Gwendolyn Stroud [employer]LECT[employer] J[employer] Family Practice 03/14/22 Die Maintenance Technician Relationship Specialty Start Date End Date Eliceo Gómez Jr. [address] [place] [address] PCP - General Family Medicine 10/14/20 Gwendolyn Stroud, [employer] Family Medicine 03/14/22 Die Maintenance Technician Relationship Specialty Start Date End Date Eliceo Gómez Jr. [address] [place] [address] PCP - General Family Medicine 10/14/20 Gwendolyn Stroud, [employer] J[employer] Family Medicine 03/14/22 Die Maintenance Technician Relationship Specialty Start Date End Date Eliceo Gómez Jr. [address] [place] [address] PCP - General Family Medicine 10/14/20 Gwendolyn Stroud CNP Family Medicine 03/14/22 Die Maintenance Technician Relationship Specialty Start Date End Date Eliceo Gómez Jr. [address] [place] [address] PCP - General Family Medicine 10/14/20 Gwendolyn Stroud CNP Family Medicine 03/14/22 Team Status: Inactive Member Role Status Dates Shannon Gómez DO Primary Care Provider Active Beto Snyder MD Attending Provider Active Die Maintenance Technician Relationship Specialty Start Date End Date Eliceo Gómez Jr. [address] [place] [address] PCP - General Family Medicine 10/14/20 Gwendolyn Stroud CNP [address] [place] [address] Family Medicine 03/14/22 Die Maintenance Technician Relationship Specialty Start Date End Date Eliceo Gómez Jr. [address] [place] [address] PCP - General Family Medicine 10/14/20 Gwendolyn Stroud CNP [address] [place] [address] Family Medicine 03/14/22 Die Maintenance Technician Relationship Specialty Start Date End Date Eliceo Gómez Jr. [address] [place] [address] PCP - General Family Medicine 10/14/20 Gwendolyn Stroud CNP [address] [place] [address] Family Medicine 03/14/22 Die Maintenance Technician Relationship Specialty Start Date End Date Eliceo Gómez Jr. [address] [place] [address] PCP - General Family Medicine 10/14/20 Gwendolyn Stroud CNP [address] [place] [address] Family Medicine 03/14/22 Die Maintenance Technician Relationship Specialty Start Date End Date Eliceo Gómez Jr. [address] [place] [address] PCP - General Family Medicine 10/14/20 Gwendolyn Stroud CNP [address] [place] [address] Family Medicine 03/14/22 Die Maintenance Technician Relationship Specialty Start Date End Date Eliceo Gómez Jr. [address] [place] [address] PCP - General Family Medicine 10/14/20 Gwendolyn Stroud CNP [address] [place] [address] Family Medicine 03/14/22 Die Maintenance Technician Relationship Specialty Start Date End Date Eliceo Gómez Jr. [address] [place] [address] PCP - General Family Medicine 10/14/20 Gwendolyn Stroud CNP [address] [place] [address] Family Medicine 03/14/22 Die Maintenance Technician Relationship Specialty Start Date End Date Eliceo Gómez Jr. [address] [place] [address] PCP - General Family Medicine 10/14/20 Gwendolyn Stroud, ELECTRICAL JOURNEYMAN [address] [place] [address] Family Medicine 03/14/22 Die Maintenance Technician Relationship Specialty Start Date End Date Eliceo Gómez Jr. [address] [place] [address] PCP - General Family Medicine 10/14/20 Gwendolyn Stroud, ELECTRICAL JOURNEYMAN [address] [place] [address] Family Medicine 03/14/22 Die Maintenance Technician Relationship Specialty Start Date End Date Eliceo Gómez Jr. [address] [place] [address] PCP - General Family Medicine 10/14/20 Gwendolyn Stroud, ELECTRICAL JOURNEYMAN [address] [place] [address] Family Medicine 03/14/22 Die Maintenance Technician Relationship Specialty Start Date End Date Eliceo Gómez Jr. [address] [place] [address] PCP - General Family Medicine 10/14/20 Gwendolyn Stroud ELECTRICAL JOURNEYMAN [address] [place] [address] Family Medicine 03/14/22 Team Status: Inactive Member Role Status Dates Shannon Gómez , Primary Care Provider Active Beto Cartagena MD Attending Provider Active Die Maintenance Technician Relationship Specialty Start Date End Date Eliceo Gómez Jr. [address] [place] [address] PCP - General Family Medicine 10/14/20 Gwendolyn Stroud, ELECTRICAL JOURNEYMAN [address] [place] [address] Family Medicine 03/14/22 Die Maintenance Technician Relationship Specialty Start Date End Date Eliceo Gómez Jr. [address] [place] [address] PCP - General Family Medicine 10/14/20 Gwendolyn Stroud CNP [address] [place] [address] Family Medicine 03/14/22 Die Maintenance Technician Relationship Specialty Start Date End Date Eliceo Gómez Jr. [address] [place] [address] PCP - General Family Medicine 10/14/20 Gwendolyn Stroud CNP [address] [place] [address] Family Medicine 03/14/22 Die Maintenance Technician Relationship Specialty Start Date End Date Eliceo Gómez Jr. [address] [place] [address] PCP - General Family Medicine 10/14/20 Gwendolyn Stroud CNP [address] [place] [address] Family Medicine 03/14/22 Die Maintenance Technician Relationship Specialty Start Date End Date Eliceo Gómez Jr. [address] [place] [address] PCP - General Family Medicine 10/14/20 Gwendolyn Stroud CNP [address] [place] [address] Family Medicine 03/14/22 Die Maintenance Technician Relationship Specialty Start Date End Date Eliceo Gómez JrReno [address] [place] [address] PCP - General Family Medicine 10/14/20 Gwendolyn Stroud CNP [address] [place] [address] Family Medicine 03/14/22 Die Maintenance Technician Relationship Specialty Start Date End Date Eliceo Gómez JrReno [address] [place] [address] PCP - General Family Medicine 10/14/20 Gwendolyn Stroud CNP [address] [place] [address] Family Medicine 03/14/22 Die Maintenance Technician Relationship Specialty Start Date End Date Eliceo Gómez JrReno [address] [place] [address] PCP - General Family Medicine 10/14/20 Gwendolyn Stroud CNP [address] [place] [address] Family Medicine 03/14/22 Team Status: Inactive Member Role Status Dates Shnanon Gómez , DO Primary Care Provider Active Anibal Valle , DO Emergency Provider Active Die Maintenance Technician Relationship Specialty Start Date End Date Eliceo Gómez [address] [place] [address] PCP - General Family Medicine 10/14/20 Gwendolyn Stroud CNP [address] [place] [address] Family Medicine 03/14/22 Die Maintenance Technician Relationship Specialty Start Date End Date HernandeztomasaEliceo Jr. [address] [place] [address] PCP - General Family Medicine 10/14/20 Gwendolyn Stroud CNP [address] [place] [address] Family Medicine 03/14/22 Die Maintenance Technician Relationship Specialty Start Date End Date Eliceo Gómez Jr. [address] [place] [address] PCP - General Family Medicine 10/14/20 Gwendolyn Stroud CNP [address] [place] [address] Family [facility] 03/14/22 Die Maintenance Technician Relationship Specialty Start Date End Date Eliceo Gómez Jr., DO [address] [place] [address] PCP - General Family Medicine 10/14/20 Gwendolyn Stroud CNP [address] [place] [address] Family [facility] 03/14/22 Die Maintenance Technician Relationship Specialty Start Date End Date Eliceo Gómez Jr., DO [address] [place] [address] PCP - General Family Medicine 10/14/20 Gwendolyn Stroud CNP [address] [place] [address] Family Medicine 03/14/22 Die Maintenance Technician Relationship Specialty Start Date End Date Eliceo Gómez Jr., DO [id number] [place] [id number] PCP - General Family Medicine 12/11/19 Team Status: Inactive Member Role Status Henrietta Gómez DO Primary Care Provider Active Start: November 23, 2023 End: November 23, 2023 Eagle Vazquez DO Attending Provider Active Start : November 23, 2023 End: November 23, 2023 Die Maintenance Technician Relationship Specialty Start Date End Date Eliceo Gómez Jr., DO [id number] [place] [address] PCP - General Family Medicine 12/11/19 [place] [phone] (Work) Consulting Physician Behavioral Health 12/20/23 Die Maintenance Technician Relationship Specialty Start Date End Date Eliceo Gómez Jr., DO [address] [place] [address] PCP - General Family Medicine 10/14/20 Gwendolyn Stroud CNP [address] [place] [address] Family Medicine 03/14/22 Die Maintenance Technician Relationship Specialty Start Date End Date Eliceo Gómez Jr., DO [address] [place] [address] PCP - General Family Medicine 12/11/19 [place] [phone] [place] [phone] (Work) Consulting Physician Behavioral Health 12/20/23 Die Maintenance Technician Relationship Specialty Start Date End Date Eliceo Gómez Jr., DO [address] [place] [address] PCP - General Family Medicine 10/14/20 Gwendolyn Stroud CNP [address] [place] [address] Family Medicine 03/14/22 Die Maintenance Technician Relationship Specialty Start Date End Date Eliceo Gómez Jr., DO [address] [place] [address] PCP - General Family Medicine 12/11/19 [place] [phone] (Work) Consulting Physician Behavioral Health 12/20/23 Die Maintenance Technician Relationship Specialty Start Date End Date Eliceo Gómez Jr., DO [address] [place] [address] PCP - General Family Medicine 10/14/20 Gwendolyn Stroud CNP [address] [place] [address] Family Medicine 03/14/22 Die Maintenance Technician Relationship Specialty Start Date End Date Eliceo Gómez Jr., DO [address] [place] [address] PCP - General Family Medicine 10/14/20 Gwendolyn Stroud CNP [address] [place] [address] Family Medicine 03/14/22 Die Maintenance Technician Relationship Specialty Start Date End Date Eliceo Gómez Jr., DO [address] [place] [address] PCP - General Family Medicine 10/14/20 Gwendolyn Stroud CNP [address] [place] [address] Family Medicine 03/14/22 Die Maintenance Technician Relationship Specialty Start Date End Date Eliceo Gómez Jr., [address] [place] [address] PCP - General Family Medicine 10/14/20 Gwendolyn Stroud CNP [address] [place] [address] Family Medicine 03/14/22 Die Maintenance Technician Relationship Specialty Start Date End Date Eliceo Gómez Jr., DO [address] [place] [address] PCP - General Family Medicine 10/14/20 Gwendolyn Stroud CNP [address] [place] [address] Family Medicine 03/14/22 Die Maintenance Technician Relationship Specialty Start Date End Date Shannon Gómez, [address] [place] [address] PCP - General Family Medicine 11/14/23 Team [...] May 27, 2024 End: May 27, 2024 Die Maintenance Technician Relationship Specialty Start Date End Date Eliceo Gómez Jr., DO [address] [place] [address] PCP - General Family Medicine 10/14/20 Gwendolyn Stroud, KWESI [address] [place] [address] Family Medicine 03/14/22 Die Maintenance Technician Relationship Specialty Start Date End Date Eliceo Gómez Jr., [address] [place] [address] PCP - General Family Medicine 10/14/20 Die Maintenance Technician Relationship Specialty Start Date End Date Shannon Gómez, [address] [place] [address] PCP - General [facility] Medicine 11/14/23 Die Maintenance Technician Relationship Specialty Start Date End Date Eliceo Gómez, [address] [place] [address] PCP - General Family Medicine 04/04/23 Eliceo Gómez, DO [address] [place] [address] PCP - [facility] 05/06/23 Dipti Acevedo DO [address] [place], [place] [phone] Referring Physician Obstetrics and Gynecology 05/20/24 Die Maintenance Technician Relationship Specialty Start Date End Date Eliceo Gómez DO [address] [place] [address] PCP - General Family Medicine 04/04/23 Eliceo Gómez DO [address] [place] [address] PCP - [facility] 05/06/23 Dipti Acevedo, [address] [place] [address] Referring Physician Obstetrics and Gynecology 05/20/24 Team Status: Inactive Member Role Status Henrietta Gómez DO Primary Care Provider Active Start: September 16, 2024 End: September 16, 2024 Anibal Medrano DO Attending Provider Active S tart: September 16, 2024 End: September 16, 2024 Die Maintenance Technician Relationship Specialty Start Date End Date Eliceo Gómez DO [address] [place] [address] PCP - General Family Medicine 04/04/23 Eliceo Gómez DO [address] [place] [address] PCP - [facility] 05/06/23 Dipti Acevedo, [address] [place] [address] Referring Physician Obstetrics and Gynecology 05/20/24 Die Maintenance Technician Relationship Specialty Start Date End Date Eliceo Gómez DO [address] [place] [address] PCP - General Family Medicine 04/04/23 Eliceo Gómez DO [address] [place] [address] PCP - [facility] 05/06/23 Dipti Acevedo, DO [address] [place] [address] Referring Physician Obstetrics and Gynecology 05/20/24 Die Maintenance Technician Relationship Specialty Start Date End Date Eliceo Gómez DO [address] [place] [address] PCP - General [facility] Medicine 04/04/23 Eliceo Gómez DO [address] [place] [address] PCP - [facility] 05/06/23 Dipti Acevedo, DO [address] [place] [address] Referring Physician Obstetrics and Gynecology 05/20/24 Goals (unrecognized section and content) Goals may [...] Minutes, ONCE, 1 dose, On 08/12/23 at [id number] (Given - Provid er: Jaren Lopez RN) [...] BE BASED ON THE PRIMARY CLINICAL RECORDS. [facility] At Night [facility]. provides no warranty or guarantee of the accuracy or completeness of information in this document.
== END 2024-10-01 07:37 | disposition home or self-care (01) ==
LOC: RAD 07:36
PROVIDERS: PCP Family Medicine; Visit Provider Podiatrist Foot & Ankle Surgery
DX: M79.671 Pain in right foot (principal); M24.674 Ankylosis, right foot
CPT/HCPCS: 73630

== ENCOUNTER 2024-10-24 14:15 | Outpatient (OUT) | payer MEDICARE, MEDICAID, SELFPAY ==
--- NOTE | 2024-10-24 14:51 | P.CN_ITS ---
Consult Note: HPI Data of Consult Patient: known to practice within the last 3 years Consult date: 03/04/24 Requesting Physician: Monica Burns NP Primary Care Provider: Isatu CASTRO Consult Narrative Reason for consult: neck pain and back pain Narrative: 54yof who presents for assessment of chronic neck, mid back, and low back pain. continues in series of provider directed home exercises >6 weeks, with minimal benefit. chronic low back pain without numbness tingling weakness of legs. Hx of mild facet arthropathy and degenerative changes on lumbar xray. Recently underwent bilateral L4-5 L5-S1 RFA on 07/22/24 since the procedure she has had increased low back pain and aching, pain unresponsive to ice, ibuprofen, TENS, flexeril 10mg TID, tylenol, ibuprofen. denies numbness tingling weakness and loss of bowel or bladder. longstanding hx of neck pain post neck surgery. previously underwent right and left C2-3 C3-4 RFA with mild relief and recently underwent left C3/4 C4/5 TFESI with 30% improvement ongoing. recently evaluated by NS who recommends bilateral C5-6 TFESI prior to C5-7 fusion. pain today 9/10 increasing to 10/10, constant pain increased with twisting head. cc:: CC: Monica Burns NP Review of Systems ROS Status of ROS 10 or more systems reviewed and unremark able except as noted in history and below Musculoskeletal Reports: back pain, neck pain and extremity pain [facility] Medical History (Updated 07/03/24 @ 13:25 by Monica Burns NP) Strain of muscle(s) and tendon(s) of peroneal muscle group at lower leg level, right leg, initial encounter ?S86.311A - Strain of muscle(s) and tendon(s) of peroneal muscle group at lower leg level, right leg, initial encounter (ICD-10) Pain in right ankle and joints of right foot ?M25.571 - Pain in right ankle and joints of right foot (ICD-10) Primary osteoarthritis, right ankle and foot ?M19.071 - Primary osteoarthritis, right ankle and foot (ICD-10) Overactive bladder ?N32.81 - Overactive bladder (ICD-10) Insomnia ?G47.00 - Insomnia, unspecified (ICD-10) Bipolar disorder ?F31.9 - Bipolar disorder, unspecified (ICD-10) Gastroparesis ?K31.84 - Gastroparesis (ICD-10) Panic attacks ?F41.0 - Panic disorder [episodic paroxysmal anxiety] (ICD-10) OCD (obsessive compulsive disorder) ?F42.9 - Obsessive-compulsive disorder, unspecified (ICD-10) COVID-19 ?U07.1 - COVID-19 (ICD-10) Migraine ?G43.909 - Migraine, unspecified, not intractable, without status migrainosus (ICD-10) Gastritis ?K29.70 - Gastritis, unspecified, without bleeding (ICD-10) GERD (gastroesophageal reflux disease) ?K21.9 - Gastro-esophageal reflux disease without esophagitis (ICD-10) Peroneal tendinitis ?M76.70 - Peroneal tendinitis, unspecified leg (ICD-10) Posterior tibial tendon dysfunction ?M76.829 - Posterior tibial tendinitis, unspecified leg (ICD-10) Painful orthopaedic hardware ?T84.84XA - Pain due to internal orthopedic prosthetic devices, implants and grafts, initial encounter (ICD-10) Post op infection ?T81.40XA - Infection following a procedure, unspecified, initial encounter (ICD-10) Restless leg syndrome ?G25.81 - Restless legs syndrome (ICD-10) Tibialis anterior tendon tear, traumatic ?S86.219A - Strain of muscle(s) and tendon(s) of anterior muscle group at lower leg level, unspecified leg, initial encounter (ICD-10) Osteoarthritis ?M19.90 - Unspecified osteoarthritis, unspecified site (ICD-10) Back pain ?M54.9 - Dorsalgia, unspecified (ICD-10) Sleep disorder ?G47.9 - Sleep disorder, unspecified (ICD-10) PTSD (post-traumatic stress disorder) ?F43.10 - Post-traumatic stress disorder, unspecified (ICD-10) Depression ?F32.A - Depression, unspecified (ICD-10) Anxiety ?F41.9 - Anxiety disorder, unspecified (ICD-10) Sleep apnea ?G47.30 - Sleep apnea, unspecified (ICD-10) Asthma ?J45.909 - Unspecified asthma, uncomplicated (ICD-10) Constipation ?K59.00 - Constipation, unspecified (ICD-10) High cholesterol ?E78.00 - Pure hypercholesterolemia, unspecified (ICD-10) Hypertension ?I10 - Essential (primary) hypertension (ICD-10) Female rectocele with enterocele ?N81.6 - Rectocele (ICD-10) ?K46.9 - Unspecified abdominal hernia without obstruction or gangrene (ICD- 10) 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 - Other specified functional intestinal disorders (ICD-10) Surgical History S/P foot surgery ?Z98.890 - Other specified postprocedural states (ICD-10) H/O cervical spine surgery ?Z98.890 - Other specified postprocedural states (ICD-10) S/P placement of nerve stimulator (01/02/24) ?Z96.82 - Presence of neurostimulator (ICD-10) S/P placement of nerve stimulator ?Z96.82 - Presence of neurostimulator (ICD-10) History of ankle surgery (11/13/23) ?Z98.890 - Other specified postprocedural states (ICD-10) H/O tooth extraction ?K08.409 - Partial loss of teeth, unspecified cause, unspecified class (ICD- 10) H/O foot surgery (05/12/23) ?Z98.890 - Other specified postprocedural states (ICD-10) History of appendectomy (1987) ?Z90.49 - Acquired absence of other specified parts of digestive tract (ICD- 10) History of colonoscopy ?Z98.890 - Other specified postprocedural states (ICD-10) History of colectomy (03/2022) ?Z90.49 - Acquired absence of other specified parts of digestive tract (ICD- 10) History of tonsillectomy and adenoidectomy ?Z90.89 - Acquired absence of other organs (ICD-10) History of hysterectomy (2014) ?Z90.710 - Acquired absence of both cervix and uterus (ICD-10) History of arthroplasty of right ankle ?Z98.890 - Other specified postprocedural states (ICD-10) History of repair of rotator cuff ?Z98.890 - Other specified postprocedural states (ICD-10) S/P ankle ligament repair (2020) ?Z98.890 - Other specified postprocedural states (ICD-10) Family History Other Family history of Alzheimer's disease Family history of coronary artery disease Family history of heart disease Family history of hypertension Social History Within the past year, how often did you have a drink containing alcohol: never Score interpretation: A score less than 3 is consistent with normal alcohol consumption. 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 Highest level of school completed/degree received: some college, no degree Little interest or pleasure in doing things: not at all Feeling down, depressed, or hopeless: not at all Feel stressed/tense/nervous/anxious/difficulty sleeping: only a little Due to disability, difficulty making decisions: No Do you think of yourself as: straight/heterosexual Gender Identity: female Meds Home Medications and Allergies Home Medications ?Medication ?Instructions ?Recorded ?Confirmed ?Type fremanezumab-vfrm 225 mg/1.5 mL 125 mg subcut .[id number] 05/04/23 08/05/24 History subcutaneous auto-injector (Ajovy) ropinirole 1 mg tablet 1 mg PO QAM 05/04/23 08/05/24 History ropinirole 2 mg tablet 2 mg PO QPM 05/04/23 08/05/24 History fluticasone fur. 100 mcg-umeclid 1 inh inhalation Q24H 11/03/23 08/05/24 History 62.5 mcg-vilant 25 mcg inhalat.powder (Trelegy Ellipta) aripiprazole 300 mg suspension, 300 mg IM Q28D 05/17/24 08/05/24 History extended rel. intramuscular syringe (Lolis Mainreba) atenolol 50 mg tablet 50 mg PO Q24H 05/17/24 08/05/24 History cetirizine 10 mg tablet 10 mg PO DAILY 05/17/24 08/05/24 History ferrous sulfate 325 mg (65 mg 325 mg PO DAILY 05/17/24 08/05/24 History iron) tablet losartan 25 mg tablet 25 mg PO DAILY 05/17/24 08/05/24 History omeprazole 40 mg capsule,delayed 40 mg PO DAILY 05/17/24 08/05/24 History release cholecalciferol (vitamin D3) 125 125 mcg PO DAILY 90 days #90 caps 05/27/24 08/05/24 Rx mcg (5,000 unit) capsule acetaminophen 500 mg tablet mg 08/01/24 History baclofen 10 mg tablet 10 mg PO TID PRN muscle spasm 08/01/24 08/05/24 History celecoxib 200 mg capsule mg 08/01/24 History daridorexant 50 mg tablet (Quviviq) mg PO .hs 08/01/24 History ibuprofen 800 mg tablet 800 mg PO TID PRN pain 08/01/24 08/05/24 History methylphenidate HCl 54 mg 54 mg PO DAILY 08/01/24 08/05/24 History tablet,extended release 24 hr (Concerta) Allergies Allergy/AdvReac Type Severity Reaction Status Date / Time risperidone (From Risperdal) AdvReac Mild breast Verified 08/05/24 07:58 nipples leak Exam Constitutional Documenting provider has reviewed patient's vital signs: yes Common normals: no apparent distress, oriented x3, healthy appearing, alert and well nourished General appearance: cooperative [facility] Common normals: normocephalic, hearing grossly normal bilaterally and moist oral mucous membranes Head and scalp: normocephalic Eye Common normals: PERRL Pupil: PERRL Neck & C-Spine Common normals: full ROM General: normal visual inspection Cervical spine: cervical ROM abnormal, pain with cervical ROM and cervical spine tenderness Other: positive sprulings strength 4/5 in RUE 5/5 in LUE Chest Common normals: inspection of chest normal Respiratory Common normals: normal respiratory effort, no retractions and no use of accessory muscles Back & Pelvis Lumbar spine/lower back: ROM limited, pain with ROM and straight leg raise negative bilaterally Sacroiliac joints: SI joint(s) abnormal Other: increased pain with flexion extension and rotation bilateral SIJ positive arcelia(patricks), gaenslens, thigh thrust, compression test strength 4/5 in RLE 5/5 in LLE Extremity Common normals: normal to inspection and full ROM Neuro Common normals: oriented x3, CN's II-XII intact bilaterally, moves all extremities, no focal motor deficits, no sensory deficits noted and deep tendon reflexes 2+ bilaterally Sensorium/orientation: alert Motor exam: no movement abnormalities noted and strength abnormal Psych Common normals: mental status grossly normal, thought process normal, cooperative, affect normal, speech normal and activity/motor behavior normal Speech: normal speech Thought process: normal thought process Results Additional Findings Additional findings: If on a controlled substance or opioids, I have checked an [place] report on this patient and there are no aberrancies noted in the prescribing history.??If on a controlled substance or opioid a drug screen was completed and reviewed within the last year, and if there has not been a drug screen completed we ordered one today to monitor higher risk, state monitored pain medication use. As part of providing excellent, safe, comprehensive care, the following was completed at our patient's visit: 1. A medication reconciliation and review to ensure accurate knowledge of current/active medications, including asking our patients to inform us about any nhlu-wnj-[id number] medications or herbal remedies/nutritional supplements/alternative remedies. 2. A review to specifically ensure our patients have had annual screening for screening for depression, screening for tobacco use, and screening for unhealthy alcohol use. For concerning screenings had a discussion with the patient, provided patient education, and recommended follow-up with primary care provider when appropriate. If patient noted with a risk of falling, they received education on strength, gait, and balance training to prevent future risk of falling. Assessment and Plan Assessment and Plan (1) Cervical radiculopathy: (2) Lumbar spondylosis: (3) Failed neck syndrome: (4) Cervical spondylosis: (5) Thoracic back pain: (6) Myofascial pain: Plan bilateral C5-6 TFESI defer further interventional therapy at this time for lumbar spine continue baclofen 10mg daily PRN continue PRN motrin continue NNCP f/u 2 weeks after BIMAL
== END 2024-10-24 14:16 | disposition home or self-care (01) ==
LOC: PM 14:15
PROVIDERS: PCP Family Medicine; Visit Provider Nurse Practitioner
DX: M54.12 Radiculopathy, cervical region (principal); M47.816 Spondylosis without myelopathy or radiculopathy, lumbar region; M96.1 Postlaminectomy syndrome, not elsewhere classified; M47.812 Spondylosis without myelopathy or radiculopathy, cervical region; M54.6 Pain in thoracic spine; M79.18 Myalgia, other site
CPT/HCPCS: G0463

== ENCOUNTER 2024-11-11 07:20 | Day surgery (SDC) | payer MEDICARE, MEDICAID, SELFPAY ==
[2024-11-11 07:47] VITALS: BP 101/72; PULSE 74; TEMP 36.3; O2SAT 100
[2024-11-11 08:51] VITALS: BP 106/65; BP 114/67; PULSE 70; PULSE 72; O2SAT 100
--- NOTE | 2024-11-11 08:56 | P.ON_ITS ---
Date of procedure: 11/11/24 Pre-op diagnosis: M54.12 Post-op diagnosis: same as pre-op Procedure: Procedure: Left C5-6 transforaminal epidural steroid injection Medications: Bupivacaine 0.25% 1cc, lidocaine 2% 1cc, dexamethasone 10mg The patient was seen and examined in the preoperative holding area.? Informed consent was obtained and placed on the chart.? Patient was brought to the medical procedure unit and placed in the prone position where a timeout was completed verifying the correct patient, procedure site, position, and planned special equipment using sterile aseptic technique.? Under direct fluoroscopic visualization a 25-gauge Quincke tipped spinal needle was advanced to the designated neural foramen where contrast dye was injected to show adequate spread.? The needle was inserted at level left C5-6. There was no evidence of vascular or adverse uptake.? Epidural spread was appreciated.? The above- mentioned injectate was then placed in a 1.5 mL aliquot preceded by negative aspiration.? The needle was removed. The surgery site was covered.? Patient was taken to the postprocedural recovery area and monitored for an appropriate length of time before found suitable for discharge in the accompaniment of a responsible adult. Anesthesia: Local Surgeon: Ace Ahumada Pathology: none sent Condition: stable Disposition: no change
[2024-11-11] MEDS: DEXAMETHASONE SOD PHOS 10 MG/ML VIAL INJ (08:57)
[2024-11-11] MEDS: BUPIVACAINE HCL 0.25% PF 25 MG/10 ML VIAL INJ (08:57)
[2024-11-11] MEDS: IOHEXOL 240 MG/ML - 10 ML VIAL 12 MG INJ (08:57)
[2024-11-11] MEDS: LIDOCAINE HCL 2% 400 MG/20 ML MDV 3 ML INJ (08:58)
== END 2024-11-11 08:59 | disposition home or self-care (01) ==
LOC: SURGOUT 07:21
PROVIDERS: PCP Family Medicine; Visit Provider Anesthesiology
DX: M54.12 Radiculopathy, cervical region (principal)
CPT/HCPCS: 64479; J0665; J1100; Q9966

== ENCOUNTER 2024-11-20 09:10 | Outpatient (OUT) | payer MEDICARE, MEDICAID, SELFPAY ==
--- NOTE | 2024-11-20 09:30 | P.CN_ITS ---
Consult Note: HPI Data of Consult Patient: known to practice within the last 3 years Consult date: 03/04/24 Requesting Physician: Monica Burns NP Primary Care Provider: Isatu CASTRO Consult Narrative Reason for consult: neck pain and back pain Narrative: 54yof who presents for assessment of chronic neck, mid back, and low back pain. continues in series of provider directed home exercises >6 weeks, with minimal benefit. chronic low back pain without numbness tingling weakness of legs. Hx of mild facet arthropathy and degenerative changes on lumbar xray. Recently underwent bilateral L4-5 L5-S1 RFA on 07/22/24 since the procedure she has had increased low back pain and aching, pain unresponsive to ice, ibuprofen, TENS, flexeril 10mg TID, tylenol, ibuprofen. denies numbness tingling weakness and loss of bowel or bladder. longstanding hx of neck pain post neck surgery. previously underwent right and left C2-3 C3-4 RFA with mild relief and recently underwent left 5/6 TFESI with 30% improvement ongoing. pt has a f/u appointment with NS today cc:: CC: Monica Bruns NP Review of Systems ROS Status of ROS 10 or more systems reviewed and unremark able except as noted in history and below Musculoskeletal Reports: back pain, neck pain and extremity pain PFSH PFSH Medical History (Updated 07/03/24 @ 13:25 by Monica Burns NP) Strain of muscle(s) and tendon(s) of peroneal muscle group at lower leg level, right leg, initial encounter ?S86.311A - Strain of muscle(s) and tendon(s) of peroneal muscle group at lower leg level, right leg, initial encounter (ICD-10) Pain in right ankle and joints of right foot ?M25.571 - Pain in right ankle and joints of right foot (ICD-10) Primary osteoarthritis, right ankle and foot ?M19.071 - Primary osteoarthritis, right ankle and foot (ICD-10) Overactive bladder ?N32.81 - Overactive bladder (ICD-10) Insomnia ?G47.00 - Insomnia, unspecified (ICD-10) Bipolar disorder ?F31.9 - Bipolar disorder, unspecified (ICD-10) Gastroparesis ?K31.84 - Gastroparesis (ICD-10) Panic attacks ?F41.0 - Panic disorder [episodic paroxysmal anxiety] (ICD-10) OCD (obsessive compulsive disorder) ?F42.9 - Obsessive-compulsive disorder, unspecified (ICD-10) COVID-19 ?U07.1 - COVID-19 (ICD-10) Migraine ?G43.909 - Migraine, unspecified, not intractable, without status migrainosus (ICD-10) Gastritis ?K29.70 - Gastritis, unspecified, without bleeding (ICD-10) GERD (gastroesophageal reflux disease) ?K21.9 - Gastro-esophageal reflux disease without esophagitis (ICD-10) Peroneal tendinitis ?M76.70 - Peroneal tendinitis, unspecified leg (ICD-10) Posterior tibial tendon dysfunction ?M76.829 - Posterior tibial tendinitis, unspecified leg (ICD-10) Painful orthopaedic hardware ?T84.84XA - Pain due to internal orthopedic prosthetic devices, implants and grafts, initial encounter (ICD-10) Post op infection ?T81.40XA - Infection following a procedure, unspecified, initial encounter (ICD-10) Restless leg syndrome ?G25.81 - Restless legs syndrome (ICD-10) Tibialis anterior tendon tear, traumatic ?S86.219A - Strain of muscle(s) and tendon(s) of anterior muscle group at lower leg level, unspecified leg, initial encounter (ICD-10) Osteoarthritis ?M19.90 - Unspecified osteoarthritis, unspecified site (ICD-10) Back pain ?M54.9 - Dorsalgia, unspecified (ICD-10) Sleep disorder ?G47.9 - Sleep disorder, unspecified (ICD-10) PTSD (post-traumatic stress disorder) ?F43.10 - Post-traumatic stress disorder, unspecified (ICD-10) Depression ?F32.A - Depression, unspecified (ICD-10) Anxiety ?F41.9 - Anxiety disorder, unspecified (ICD-10) Sleep apnea ?G47.30 - Sleep apnea, unspecified (ICD-10) Asthma ?J45.909 - Unspecified asthma, uncomplicated (ICD-10) Constipation ?K59.00 - Constipation, unspecified (ICD-10) High cholesterol ?E78.00 - Pure hypercholesterolemia, unspecified (ICD-10) Hypertension ?I10 - Essential (primary) hypertension (ICD-10) Female rectocele with enterocele ?N81.6 - Rectocele (ICD-10) ?K46.9 - Unspecified abdominal hernia without obstruction or gangrene (ICD- 10) 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 - Other specified functional intestinal disorders (ICD-10) Surgical History S/P foot surgery ?Z98.890 - Other specified postprocedural states (ICD-10) H/O cervical spine surgery ?Z98.890 - Other specified postprocedural states (ICD-10) S/P placement of nerve stimulator (01/02/24) ?Z96.82 - Presence of neurostimulator (ICD-10) S/P placement of nerve stimulator ?Z96.82 - Presence of neurostimulator (ICD-10) History of ankle surgery (11/13/23) ?Z98.890 - Other specified postprocedural states (ICD-10) H/O tooth extraction ?K08.409 - Partial loss of teeth, unspecified cause, unspecified class (ICD- 10) H/O foot surgery (05/12/23) ?Z98.890 - Other specified postprocedural states (ICD-10) History of appendectomy (1987) ?Z90.49 - Acquired absence of other specified parts of digestive tract (ICD- 10) History of colonoscopy ?Z98.890 - Other specified postprocedural states (ICD-10) History of colectomy (03/2022) ?Z90.49 - Acquired absence of other specified parts of digestive tract (ICD- 10) History of tonsillectomy and adenoidectomy ?Z90.89 - Acquired absence of other organs (ICD-10) History of hysterectomy (2014) ?Z90.710 - Acquired absence of both cervix and uterus (ICD-10) History of arthroplasty of right ankle ?Z98.890 - Other specified postprocedural states (ICD-10) History of repair of rotator cuff ?Z98.890 - Other specified postprocedural states (ICD-10) S/P ankle ligament repair (2020) ?Z98.890 - Other specified postprocedural states (ICD-10) Family History Other Family history of Alzheimer's disease Family history of coronary artery disease Family history of heart disease Family history of hypertension Social History Within the past year, how often did you have a drink containing alcohol: never Score interpretation: A score less than 3 is consistent with normal alcohol consumption. 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 Highest level of school completed/degree received: some college, no degree Little interest or pleasure in doing things: not at all Feeling down, depressed, or hopeless: not at all Feel stressed/tense/nervous/anxious/difficulty sleeping: only a little Due to disability, difficulty making decisions: No Do you think of yourself as: straight/heterosexual Gender Identity: female Meds Home Medications and Allergies Home Medications ?Medication ?Instructions ?Recorded ?Confirmed ?Type ropinirole 1 mg tablet 1 mg PO QAM 05/04/23 11/11/24 History ropinirole 2 mg tablet 2 mg PO QPM 05/04/23 11/11/24 History fluticasone fur. 100 mcg-umeclid 1 inh inhalation Q24H 11/03/23 11/11/24 History 62.5 mcg-vilant 25 mcg inhalat.powder (Trelegy Ellipta) aripiprazole 300 mg suspension, 300 mg IM Q28D 05/17/24 11/11/24 History extended rel. intramuscular syringe (Lolis Mainreba) atenolol 50 mg tablet 50 mg PO Q24H 05/17/24 11/11/24 History ferrous sulfate 325 mg (65 mg 325 mg PO DAILY 05/17/24 11/11/24 History iron) tablet losartan 25 mg tablet 25 mg PO DAILY 05/17/24 11/11/24 History omeprazole 40 mg capsule,delayed 40 mg PO DAILY 05/17/24 11/11/24 History release cholecalciferol (vitamin D3) 125 125 mcg PO DAILY 90 days #90 caps 05/27/24 11/11/24 Rx mcg (5,000 unit) capsule acetaminophen 500 mg tablet mg 08/01/24 History baclofen 10 mg tablet 10 mg PO TID PRN muscle spasm 08/01/24 11/11/24 History daridorexant 50 mg tablet (Quviviq) mg PO .hs 08/01/24 History ibuprofen 800 mg tablet 800 mg PO TID PRN pain 08/01/24 11/11/24 History methylphenidate HCl 54 mg 54 mg PO DAILY 08/01/24 11/11/24 History tablet,extended release 24 hr (Concerta) Allergies Allergy/AdvReac Type Severity Reaction Status Date / Time risperidone (From Risperdal) AdvReac Mild breast Verified 11/11/24 07:52 nipples leak Exam Constitutional Documenting provider has reviewed patient's vital signs: yes Common normals: no apparent distress, oriented x3, healthy appearing, alert and well nourished General appearance: cooperative [facility] Common normals: normocephalic, hearing grossly normal bilaterally and moist oral mucous membranes Head and scalp: normocephalic Eye Common normals: PERRL Pupil: PERRL Neck & C-Spine Common normals: full ROM General: normal visual inspection Cervical spine: cervical ROM abnormal, pain with cervical ROM and cervical spine tenderness Other: positive sprulings strength 4/5 in RUE 5/5 in LUE Chest Common normals: inspection of chest normal Respiratory Common normals: normal respiratory effort, no retractions and no use of accessory muscles Back & Pelvis Lumbar spine/lower back: ROM limited, pain with ROM and straight leg raise negative bilaterally Sacroiliac joints: SI joint(s) abnormal Other: increased pain with flexion extension and rotation bilateral SIJ positive arcelia(patricks), gaenslens, thigh thrust, compression test strength 4/5 in RLE 5/5 in LLE Extremity Common normals: normal to inspection and full ROM Neuro Common normals: oriented x3, CN's II-XII intact bilaterally, moves all extremities, no focal motor deficits, no sensory deficits noted and deep tendon reflexes 2+ bilaterally Sensorium/orientation: alert Motor exam: no movement abnormalities noted and strength abnormal Psych Common normals: mental status grossly normal, thought process normal, cooperative, affect normal, speech normal and activity/motor behavior normal Speech: normal speech Thought process: normal thought process Results Additional Findings Additional findings: If on a controlled substance or opioids, I have checked an [place] report on this patient and there are no aberrancies noted in the prescribing history.??If on a controlled substance or opioid a drug screen was completed and reviewed within the last year, and if there has not been a drug screen completed we ordered one today to monitor higher risk, state monitored pain medication use. As part of providing excellent, safe, comprehensive care, the following was completed at our patient's visit: 1. A medication reconciliation and review to ensure accurate knowledge of current/active medications, including asking our patients to inform us about any [id number] medications or herbal remedies/nutritional supplements/alternative remedies. 2. A review to specifically ensure our patients have had annual screening for screening for depression, screening for tobacco use, and screening for unhealthy alcohol use. For concerning screenings had a discussion with the patient, provided patient education, and recommended follow-up with primary care provider when appropriate. If patient noted with a risk of falling, they received education on strength, gait, and balance training to prevent future risk of falling. Assessment and Plan Assessment and Plan (1) Cervical radiculopathy: (2) Lumbar spondylosis: (3) Failed neck syndrome: (4) Cervical spondylosis: (5) Thoracic back pain: (6) Myofascial pain: Plan continue f/u with NS defer further interventional therapy at this time for lumbar spine continue baclofen 10mg daily PRN pain/spasms continue PRN motrin continue NNCP f/u PRN
== END 2024-11-20 09:11 | disposition home or self-care (01) ==
PROVIDERS: PCP Family Medicine; Visit Provider Nurse Practitioner
DX: M54.12 Radiculopathy, cervical region (principal); M47.816 Spondylosis without myelopathy or radiculopathy, lumbar region; M96.1 Postlaminectomy syndrome, not elsewhere classified; M47.812 Spondylosis without myelopathy or radiculopathy, cervical region; M54.6 Pain in thoracic spine; M79.18 Myalgia, other site
CPT/HCPCS: G0463

== ENCOUNTER 2024-12-26 08:13 | Outpatient (OUT) | payer MEDICARE, MEDICAID, SELFPAY ==
--- NOTE | 2024-12-26 08:50 | P.CN_ITS ---
Consult Note: HPI Data of Consult Patient: known to practice within the last 3 years Requesting Physician: Monica Burns NP Primary Care Provider: Isatu CASTRO Consult Narrative Reason for consult: f/u Narrative: Mary Leal a pleasant 54 year old female presents for evaluation of low back pain. pain today in bilateral low back and hips, left side worse than right side. Pain today 7-8/10 aching burning stabbing increased with twisting, pushing, pulling, standing, walking, lifting, bending. Pain improved with heat. failed tylenol and ibuprofen, following with rheumatology for new dx of fibromyalgia as well as OA, started on LDN for FM and chronic pain. continues to engage in provider guided HEP, has completed >6 weeks of therapy without improvement. prior imaging of lumbar spine consistent with degenerative changes. cc:: CC: Monica Burns NP Review of Systems ROS Status of ROS 10 or more systems reviewed and unremark able except as noted in history and below Musculoskeletal Reports: back pain PFSH [facility] Medical History (Updated 12/26/24 @ 08:54 by Monica Burns NP) Strain of muscle(s) and tendon(s) of peroneal muscle group at lower leg level, right leg, initial encounter ?S86.311A - Strain of muscle(s) and tendon(s) of peroneal muscle group at lower leg level, right leg, initial encounter (ICD-10) Pain in right ankle and joints of right foot ?M25.571 - Pain in right ankle and joints of right foot (ICD-10) Primary osteoarthritis, right ankle and foot ?M19.071 - Primary osteoarthritis, right ankle and foot (ICD-10) Overactive bladder ?N32.81 - Overactive bladder (ICD-10) Insomnia ?G47.00 - Insomnia, unspecified (ICD-10) Bipolar disorder ?F31.9 - Bipolar disorder, unspecified (ICD-10) Gastroparesis ?K31.84 - Gastroparesis (ICD-10) Panic attacks ?F41.0 - Panic disorder [episodic paroxysmal anxiety] (ICD-10) OCD (obsessive compulsive disorder) ?F42.9 - Obsessive-compulsive disorder, unspecified (ICD-10) COVID-19 ?U07.1 - COVID-19 (ICD-10) Migraine ?G43.909 - Migraine, unspecified, not intractable, without status migrainosus (ICD-10) Gastritis ?K29.70 - Gastritis, unspecified, without bleeding (ICD-10) GERD (gastroesophageal reflux disease) ?K21.9 - Gastro-esophageal reflux disease without esophagitis (ICD-10) Peroneal tendinitis ?M76.70 - Peroneal tendinitis, unspecified leg (ICD-10) Posterior tibial tendon dysfunction ?M76.829 - Posterior tibial tendinitis, unspecified leg (ICD-10) Painful orthopaedic hardware ?T84.84XA - Pain due to internal orthopedic prosthetic devices, implants and grafts, initial encounter (ICD-10) Post op infection ?T81.40XA - Infection following a procedure, unspecified, initial encounter (ICD-10) Restless leg syndrome ?G25.81 - Restless legs syndrome (ICD-10) Tibialis anterior tendon tear, traumatic ?S86.219A - Strain of muscle(s) and tendon(s) of anterior muscle group at lower leg level, unspecified leg, initial encounter (ICD-10) Osteoarthritis ?M19.90 - Unspecified osteoarthritis, unspecified site (ICD-10) Back pain ?M54.9 - Dorsalgia, unspecified (ICD-10) Sleep disorder ?G47.9 - Sleep disorder, unspecified (ICD-10) PTSD (post-traumatic stress disorder) ?F43.10 - Post-traumatic stress disorder, unspecified (ICD-10) Depression ?F32.A - Depression, unspecified (ICD-10) Anxiety ?F41.9 - Anxiety disorder, unspecified (ICD-10) Sleep apnea ?G47.30 - Sleep apnea, unspecified (ICD-10) Asthma ?J45.909 - Unspecified asthma, uncomplicated (ICD-10) Constipation ?K59.00 - Constipation, unspecified (ICD-10) High cholesterol ?E78.00 - Pure hypercholesterolemia, unspecified (ICD-10) Hypertension ?I10 - Essential (primary) hypertension (ICD-10) Female rectocele with enterocele ?N81.6 - Rectocele (ICD-10) ?K46.9 - Unspecified abdominal hernia without obstruction or gangrene (ICD- 10) 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 - Other specified functional intestinal disorders (ICD-10) Surgical History S/P foot surgery ?Z98.890 - Other specified postprocedural states (ICD-10) H/O cervical spine surgery ?Z98.890 - Other specified postprocedural states (ICD-10) S/P placement of nerve stimulator (01/02/24) ?Z96.82 - Presence of neurostimulator (ICD-10) S/P placement of nerve stimulator ?Z96.82 - Presence of neurostimulator (ICD-10) History of ankle surgery (11/13/23) ?Z98.890 - Other specified postprocedural states (ICD-10) H/O tooth extraction ?K08.409 - Partial loss of teeth, unspecified cause, unspecified class (ICD- 10) H/O foot surgery (05/12/23) ?Z98.890 - Other specified postprocedural states (ICD-10) History of appendectomy (1987) ?Z90.49 - Acquired absence of other specified parts of digestive tract (ICD- 10) History of colonoscopy ?Z98.890 - Other specified postprocedural states (ICD-10) History of colectomy (03/2022) ?Z90.49 - Acquired absence of other specified parts of digestive tract (ICD- 10) History of tonsillectomy and adenoidectomy ?Z90.89 - Acquired absence of other organs (ICD-10) History of hysterectomy (2014) ?Z90.710 - Acquired absence of both cervix and uterus (ICD-10) History of arthroplasty of right ankle ?Z98.890 - Other specified postprocedural states (ICD-10) History of repair of rotator cuff ?Z98.890 - Other specified postprocedural states (ICD-10) S/P ankle ligament repair (2020) ?Z98.890 - Other specified postprocedural states (ICD-10) Family History Other Family history of Alzheimer's disease Family history of coronary artery disease Family history of heart disease Family history of hypertension Social History Within the past year, how often did you have a drink containing alcohol: never Score interpretation: A score less than 3 is consistent with normal alcohol consumption. 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 Highest level of school completed/degree received: some college, no degree Little interest or pleasure in doing things: not at all Feeling down, depressed, or hopeless: not at all Feel stressed/tense/nervous/anxious/difficulty sleeping: only a little Due to disability, difficulty making decisions: No Do you think of yourself as: straight/heterosexual Gender Identity: female Meds Home Medications and Allergies Home Medications ?Medication ?Instructions ?Recorded ?Confirmed ?Type ropinirole 1 mg tablet 1 mg PO QAM 05/04/23 11/11/24 History ropinirole 2 mg tablet 2 mg PO QPM 05/04/23 11/11/24 History fluticasone fur. 100 mcg-umeclid 1 inh inhalation Q24H 11/03/23 11/11/24 History 62.5 mcg-vilant 25 mcg inhalat.powder (Trelegy Ellipta) aripiprazole 300 mg suspension, 300 mg IM Q28D 05/17/24 11/11/24 History extended rel. intramuscular syringe (Lolis Mainreba) atenolol 50 mg tablet 50 mg PO Q24H 05/17/24 11/11/24 History ferrous sulfate 325 mg (65 mg 325 mg PO DAILY 05/17/24 11/11/24 History iron) tablet losartan 25 mg tablet 25 mg PO DAILY 05/17/24 11/11/24 History omeprazole 40 mg capsule,delayed 40 mg PO DAILY 05/17/24 11/11/24 History release cholecalciferol (vitamin D3) 125 125 mcg PO DAILY 90 days #90 caps 05/27/24 11/11/24 Rx mcg (5,000 unit) capsule acetaminophen 500 mg tablet mg 08/01/24 History baclofen 10 mg tablet 10 mg PO TID PRN muscle spasm 08/01/24 11/11/24 History daridorexant 50 mg tablet (Quviviq) mg PO .hs 08/01/24 History ibuprofen 800 mg tablet 800 mg PO TID PRN pain 08/01/24 11/11/24 History methylphenidate HCl 54 mg 54 mg PO DAILY 08/01/24 11/11/24 History tablet,extended release 24 hr (Concerta) Allergies Allergy/AdvReac Type Severity Reaction Status Date / Time risperidone (From Risperdal) AdvReac Mild breast Verified 11/11/24 07:52 nipples leak Exam Constitutional Documenting provider has reviewed patient's vital signs: yes Common normals: no apparent distress, oriented x3, healthy appearing, alert and well nourished General appearance: cooperative HENMT Common normals: normocephalic, hearing grossly normal bilaterally and moist oral mucous membranes Head and scalp: normocephalic Eye Common normals: PERRL Pupil: PERRL Neck & C-Spine Common normals: full ROM General: normal visual inspection Chest Common normals: inspection of chest normal Respiratory Common normals: normal respiratory effort, no retractions and no use of accessory muscles Back & Pelvis Lumbar spine/lower back: lumbar ROM normal; no pain with ROM, no lumbar spinal tenderness and no paraspinal muscle tenderness Sacroiliac joints: SI joint(s) abnormal Other: left > right positive arcelia(patricks), gaenslens, thigh thrust, compression test sensation intact BLE strength 5/5 in BLE Neuro Common normals: oriented x3, CN's II-XII intact bilaterally, moves all extremities, no focal motor deficits, no sensory deficits noted and deep tendon reflexes 2+ bilaterally Sensorium/orientation: alert Motor exam: strength 5/5 throughout and no movement abnormalities noted Psych Common normals: mental status grossly normal, thought process normal, cooperativ e, affect normal, speech normal and activity/motor behavior normal Speech: normal speech Thought process: normal thought process Results Additional Findings Additional findings: If on a controlled substance or opioids, I have checked an [place] report on this patient and there are no aberrancies noted in the prescribing history.??If on a controlled substance or opioid a drug screen was completed and reviewed within the last year, and if there has not been a drug screen completed we ordered one today to monitor higher risk, state monitored pain medication use. As part of providing excellent, safe, comprehensive care, the following was completed at our patient's visit: 1. A medication reconciliation and review to ensure accurate knowledge of current/active medications, including asking our patients to inform us about any [id number]-[id number] medications or herbal remedies/nutritional supplements/alternative remedies. 2. A review to specifically ensure our patients have had annual screening for screening for depression, screening for tobacco use, and screening for unhealthy alcohol use. For concerning screenings had a discussion with the patient, provided patient education, and recommended follow-up with primary care provider when appropriate. If patient noted with a risk of falling, they received education on strength, gait, and balance training to prevent future risk of falling. Portions of this note may have been carried over from the previous visit and updated as appropriate. Please note this office utilizes paper charting in addition to the electronic medical record. A list of current medications, vitals, and PMH is available there as the clinical staff outside of myself do not have access to [employer] charting during the clinic day operations. As part of providing quality comprehensive care the current medications, vitals, and PMH were reviewed in the paper chart. Assessment and Plan Assessment and Plan (1) Bilateral sacroiliitis: Plan bilateral SIJ injection under fluoroscopy continue HEP as tolerated continue medication management through rheumatology, continue f/u as planned f/u 2 weeks after injection
== END 2024-12-26 08:14 | disposition home or self-care (01) ==
LOC: PM 08:13
PROVIDERS: PCP Family Medicine; Visit Provider Nurse Practitioner
DX: M46.1 Sacroiliitis, not elsewhere classified (principal)
CPT/HCPCS: G0463

== ENCOUNTER 2025-01-03 08:50 | Outpatient (OUT) | payer MEDICARE, MEDICAID, SELFPAY ==
--- NOTE | 2025-01-03 | XR_ITS ---
The [address] [address] Patient Name: ELSIE FUENTES MRN: [id number] date: 1970 Sex: F Assigned Patient Location: Current Patient Location: Accession/Order Number: [id number] Exam Date: 01/03/2025 12:17 Report Date: 01/03/2025 12:21 At the request of: SADE WILDE DPDirk Procedure: XR foot RT min 3V RIGHT FOOT - 4 views CLINICAL DATA: Right foot pain. Previous surgery. COMPARISON: 10/01/2024 AP, lateral, oblique and tangential calcaneal views were obtained. There is redemonstration of multiple screws involving the talus, calcaneus and navicular. There is prior calcaneal osteotomy. Hardware is also again seen head of the first metatarsal and at the first cuneiform. There is no interval change. There is no developing fracture or dislocation. There are no significant soft tissue abnormalities. XR/XR foot RT min 3V IMPRESSION: STABLE APPEARANCE OF THE FOOT Impression dictated by: Makenna Pathak M.D.01/03/2025 12:21 PM Dictation Location: [facility] Electronically authenticated by: [id number] Y Date: 01/03/2025 12:21
== END 2025-01-03 08:51 | disposition home or self-care (01) ==
LOC: EC 08:50
PROVIDERS: PCP Family Medicine; Visit Provider Podiatrist Foot & Ankle Surgery
DX: M79.671 Pain in right foot (principal); Z98.890 Other specified postprocedural states
CPT/HCPCS: 73630

== ENCOUNTER 2025-01-20 09:50 | Day surgery (SDC) | payer MEDICARE, MEDICAID, SELFPAY ==
[2025-01-20 10:03] VITALS: BP 120/78; PULSE 76; TEMP 36.7; O2SAT 97
[2025-01-20 11:02] VITALS: PULSE 69; PULSE 70
[2025-01-20] MEDS: METHYLPREDNISOLONE ACETATE 80 MG/ML VIAL INJ (11:08)
[2025-01-20] MEDS: BUPIVACAINE HCL 0.25% PF 25 MG/10 ML VIAL 4 ML INJ (11:09)
[2025-01-20] MEDS: IOHEXOL 240 MG/ML - 10 ML VIAL INJ (11:12)
[2025-01-20 11:14] VITALS: BP 138/83; BP 142/81; O2SAT 100
--- NOTE | 2025-01-20 13:52 | W.PM.PROCNOT ---
Date of procedure: 01/20/25 Pre-op diagnosis: sacroiliitis Post-op diagnosis: same as pre-op Procedure: sacroiliac joint injection - diagnostic Preop diagnosis includes pain secondary to Sacroiliitis and sacroiliac dysfunction, Postop diagnosis same Performed under fluoroscopic guidance Immediate complications none Anesthesia:none Solution used for injection: In each syringe, 4 milliliters 0.25% Marcaine, Depomedrol 80mg omnipaque 3cc Lidocaine used 3ml for local Time out process compliant After informed consent obtained patient was brought to the procedure room placed in the prone position skin overlying the area was prepped and draped in a sterile fashion using betadine. 25 gauge spinal needle Insert over each of the target areas identified in fluoroscopy corresponding needles were advanced Under fluoroscopic guidance until the target/targets encountered , no indication of intravascular or Intraneuronal needle tip placement. Needle tip placement confirmed with injection of contrast under fluoroscopy in both AP and Lateral views. Solution injected .needles removed post procedurally. patient transferred to recovery room in stable condition to be discharged home after meeting criteria Anesthesia: Local Surgeon: Muriel Hampton Condition: stable Disposition: PACU
== END 2025-01-20 11:18 | disposition home or self-care (01) ==
PROVIDERS: Anesthesiology Pain Medicine; PCP Family Medicine; Visit Provider Anesthesiology
DX: M46.1 Sacroiliitis, not elsewhere classified (principal)
CPT/HCPCS: 27096; J0665; J1010; Q9966

== ENCOUNTER 2025-01-30 07:38 | Outpatient (OUT) | payer MEDICARE, MEDICAID, SELFPAY ==
--- OUTSIDE RECORDS SUMMARY | 2025-01-30 07:44 | XMS_ITS | CCD ---
Author Organization [facility] Inform ion Partnership [facility] Care Team Providers Care Special Education Bus Driver Name Role Phone PARISH GÓMEZ Primary Care Unavailable Eliceo Gómez Jr. Primary Care Provider Gwendolyn Stroud Unavailable Maximus OROSCO, Gwendolyn Unavailable [phone] Beto Snyder Unavailable Tita Daugherty Unavailable Erica Kingston Unavailable Eliceo Gómez Unavailable Unavailable Unavailable Allison Arita Unavailable Eliceo Gómez Jr. Primary Care Provider Maximus OROSCO Gwendolyn Unavailable Eliceo Gómez Unavailable DO Shannon Gómez Primary Care Provider [phone] MD Beto Snyder Attending Provider Eliceo Gómez Jr. Primary Care Provider Maximus OROSCO Gwendolyn Unavailable Beto Cartagena Unavailable MD Beto Cartagena Attending Provider WINSTON HANNAH Attending Unavailable WINSTON HANNAH Referring Unavailable ELICEO GÓMEZ JR Primary Care Unavail able ISRA MASTERS Attending Unavailable ISRA MASTERS Referring Unavailable ELICEO GÓMEZ JR Primary Care Unavail able DO Shannon Gómez Primary Care Provider [phone] LORRAINE Duron Attending Provider [phone] DR FELISHA SKELTON Consulting Unavailable KAFTAN, DR Pricila LUGO Primary Care Unavailable HAY ., DR BAEZA Admitting Unavailable HAY ., DR BAEZA Attending Unavailable SALMA AMEZQUITA Consulting Unavailable HIGHLANDER, SADE Keys Consulting Unavailable HIGHLANDER, SADE Keys Attending Unavailable HIGHLANDER, SADE D Admitting Unavailable KAFTAN, DR Pricila LUGO Primary Care Unavailable HOLLINGSWORTHSHERLYN Consulting Unavailable HIGHLANDER, SADE Keys Attending Unavailable HIGHLANDER, SADE Keys Admitting Unavailable WEST, DR NICKI Gale Consulting Unavailable KAFTAN, DR Pricila LUGO Primary Care Unavailable HIGHLANDER, SADE Keys Consulting Unavailable KAFTAN, DR Pricila LUGO Primary Care Unavailable TANI ., CHASITY Consulting Unavailable TANI ., CHASITY Attending Unavailable TANI ., CHASITY Admitting Unavailable NANCY BELLE Consulting Unavailable KAFTAN, DR Pricila LUGO Primary Care Unavailable PAY ., DR MCDONALD Consulting Unavailable PAY ., DR MCDONALD Attending Unavailable PAY ., DR MCDONALD Admitting Unavailable KAFTAN, DR Pricila LUGO Primary Care Unavailable HIGHLANDER, SADE Keys Attending Unavailable HIGHLANDER, SADE D Admitting Unavailable ZIEBER, DR ZAIDA Ellis Consulting Unavailable HIGHLANDER, SADE Keys Consulting Unavailable KAFTAN, DR Pricila LUGO Primary Care Unavailable HAY ., DR BAEZA Consulting Unavailable HAY ., DR BAEZA Attending Unavailable HAY ., DR BAEZA Admitting Unavailable HIGHLANDER, SADE Keys Attending Unavailable HIGHLANDER, SADE Keys Admitting Unavailable KAFTAN, DR Pricila LUGO Primary Care Unavailable ZIEBER, DR ZAIDA Ellis Consulting Unavailable HIGHLANDER, SADE Keys Consulting Unavailable KAREEM, NIECY Attending Unavailable KAREEM, NIECY Admitting Unavailable KAFTAN, DR Pricila LUGO Primary Care Unavailable ZIEBER, DR ZAIDA Ellis Consulting Unavailable KAREEM, NIECY Consulting Unavailable KAREEM, NIECY Admitting Unavailable KAREEM, NIECY Attending Unavailable KAFTAN, DR Pricila LUGO Primary Care Unavailable ZIEBER, DR ZAIDA Ellis Consulting Unavailable KAREEM, NIECY Consulting Unavailable KAREEM, NIECY Admitting Unavailable KAREEM, NIECY Attending Unavailable WEST, DR NICKI Gale Consulting Unavailable KAFTAN, DR Pricila LUGO Primary Care Unavailable KAREEM, NIECY Consulting Unavailable JENNIFER GARCIA Attending Unavailable HAY ., DR BAEZA Consulting Unavailable JENNIFER GARCIA Admitting Unavailable KAFTAN, DR Pricila LUGO Primary Care Unavailable JENNIFER GARCIA Consulting Unavailable HIGHLANDER, SADE Keys Consulting Unavailable TANI ., CHASITY Attending Unavailable KAFTAN, DR Pricila LUGO Primary Care Unavailable TANI ., CHASITY Admitting Unavailable NICKI BUTT Unavailable TANI ., CHASITY Consulting Unavailable MAKENNA TRIPLETT Unavailable DALIA, DR Pricila LUGO Primary Care Unavailable ELIAS ., DR ELDER Rios Admitting Unavailable ELIAS ., DR ELDER Rios Attending Unavailable ELIAS ., DR ELDER Rios Consulting Unavailable HILLMAN, DR NICKI Gale Consulting Unavailable SADE FELIX Consulting Unavailable EDUARDO ., NANCY LAMA Consulting Unavailable GEMBUS, DAWNA Consulting Unavailable HIGHLANDERSADE Consulting Unavailable CHANI, SADE Keys Attending Unavailable SADE FELIX Admitting Unavailable KAFTAN, DR Pricila LUGO Primary Care Unavailable KAFTAN, DR Pricila LUGO Primary Care Unavailable PAY ., DR MCDONALD Attending Unavailable PAY ., DR MCDONALD Admitting Unavailable PAY ., DR MCDONALD Consulting Unavailable NIECY DURON Attending Unavailable NIECY DURON Admitting Unavailable DALIA, DR Pricila LUGO Primary Care Unavailable ZIEBER, DR ZAIDA Ellis Consulting Unavailable NIECY DURON Consulting Unavailable DO Anibal Valle Emergency Provider [phone] Unavailable Unavailable Unavailable Primary Care Provider UnavailLEV [...] Dipti Fam Attending Unava arben Gómez Jr., Eliceo LOAIZA Primary Care Provi jose eduardo PAULINE CHRISTENSEN Attending Unavailable ELICEO GÓMEZ JR Referring Unavailable ELICEO GÓMEZ JR Primary Care Unavailable DO Shannon Gómez Primary Care Provider [phone] DO Tez Vazquez Attending Provider RAJIV WILKINSON Attending Unavailable ELICEO GÓMEZ JR Primary Care Unavailable CULLEN DAWKINS Referring Unavailable ELICEO GÓMEZ JR Primary Care Unavailable CULLEN DAWKINS Attending Unavailable CULLEN DAWKINS Referring Unavailable ELICEO GÓMEZ JR Primary Care Unavailable CULLEN DAWKINS Attending Unavailable DALIA JENKINS ELICEO Ellis Referring Unavailable KAFTAN JR, ELICEO Ellis Primary Care Unavailable CULLEN DAWKINS Admitting Unavailable CULLEN DAWKINS Attending Unavailable CULLEN DAWKINS Referring Unavailable KAJEROMEAN JR ELICEO Ellis Primary Care Unavailable WANG, PAM Referring Unavailable KAFTAN JR, ELICEO LUGO Primary Care Unavail able Kaftan JrReno, DO, Eliceo Lugo Primary Care [facility] jose eduardo STEPHONLEIGHA JR, ELICEO LUGO Primary Care Unavail able WANG, PAM Admitting Unavailable WANG, PAM Attending Unavailable WANG, PAM Referring Unavailable KAFTAN JR, ELICEO LUGO Primary Care Unavail able JAIORN LAI Attending Unavailable WANG, PAM Attending Unavailable [...] Unavail able WANG, PAM Attending Unavailable KAFTAN JR, ELICEO LUGO Primary Care Unavail able WANG, PAM Attending Unavailable WANG, PAM Referring Unavailable KAFTAN JR, ELICEO LUGO Primary Care Unavail able DORIS ARIAS Attending Unavailable Shannon Gómez DO Primary Care Provider DO Shannon Gómez Primary Care Provider FADUMO Felix Attending Provider [phone] Unavailable Primary Care Provider UnavailEliceo Santos DO Primary Care Provider Eliceo Gómez DO Unavailable [phone] Dipti Acevedo DO Unavailable Grant TRACY-CMonica Attending Provider Shannon Gómez DO Primary Care Provider Anibal Medrano DO Attending Provider Dipti Acevedo DO Attending Provider [phone] Farhad BENSON, Na Attending Provider Brandyn BENSON, Ace Art Attending Unavailable Brandyn BENSON, Andrius Vytautas Attending Unavailable Giedraitis MD, Andrius [...] Unavailable Giedraitis , Andrius Vytautas Attending Unavailable Dalia Morales DO, George R Primary Care Provider HEALTH, 360 Referring Unavailable ELICEO GÓMEZ JR Primary Care Unavailable Everett Valdez MD Attending Provider [phone] Sade Felix Admitting Unavailable Sade Felix Attending Unavailable Shannon Gómez Primary Care Unavailable Mitchell, Anibal N Admitting Unavailable Anibal Medrano Attending Unavailable Shannon Gómez Primary Care Unavailable Everett Valdez Admitting Unavailable Everett Valdez Attending Unavailable Li, Na Admitting Unavailable Li, Na Attending Unavailable Shannon Gómez Primary Care Unavailable Anibal Medrano Attending Unavailable Shannon Gómez Primary Care Unavailable Mitchell, Anibal N Admitting Unavailable Grant Monica E Admitting Unavailable Grant Monica E Attending Unavailable Shannon Gómez Primary Care Unavailable Mitchell Anibal N Attending Unavailable Shannon Gómez Primary Care Unavailable Mitchell, Anibal N Admitting Unavailable Sade Felix Admitting Unavailable Sade Felix Attending Unavailable Shannon Gómez Primary Care Unavailable Dipti Acevedo Admitting Unavailable Dipti Acevedo Attending Unavailable Shannon Gómez Primary Care Unavailable Shannon GÓMEZ Primary Care Unavailable MERISSA DELAROSA Referring Unavailable SELF, SELF Referring Unavailable Shannon GÓMEZ Primary Care Unavailable KAFTAN, G. PARISH Primary Care Unavailable RADHA CARDENAS Attending Unavailable WENDYAN, GReno LUGO Referring Unavailable KAFTAN, G. PARISH Primary Care Unavailable MERISSA DELAROSA Attending Unavailable KAFTAN, G. PARISH Referring Unavailable KAFTAN, G. PARISH Primary Care Unavailable KAFTAN, G. PARISH Referring Unavailable LI, NA Referring Unavailable KAFTAN, G. PARISH Primary Care Unavailable MERISSA DELAROSA Attending Unavailable LI, NA Referring Unavailable KAFTAN, G. PARISH Primary Care Unavailable RADHA CARDENAS Attending Unavailable RADHA CARDENAS Attending Unavailable KAFTAN, G. PARISH Primary Care Unavailable KAFTAN, G. PAIRSH Referring Unavailable KAFTAN, G. PARISH Referring Unavailable RADHA CARDENAS Attending Unavailable KAJEROMEAN, G. PARISH Primary Care Unavailable LI, NA Referring Unavailable KAFTAN, G. PARISH Primary Care Unavailable MILAGROS FRANCO Attending Unavailab Eliceo Grant DO Unavailable [phone] ELICEO GÓMEZ R Attending Unavailable NANCY SWENSON Attending Unavailable KAFTAN, ELICEO R Attending Unavailable KAFTAN, ELICEO R Referring Unavailable LUBRON Lynn Attending Unavailable JES MARTINEZ Attending Unavailable SIDNEY AMEZQUITA Attending Unavailable KAFTAN, ELICEO R Referring Unavailable KAFTAN, ELICEO R Attending Unavailable KAFTAN, ELICEO R Referring Unavailable FELTNELSY SAMAYOA Attending Unavailable KAFTAN, ELICEO Ellis Attending Unavailable DIPTI ACEVEDO Attending Unavailable CARMEN CRUZ Attending Unavailable RON KING Attending Unavailable DIPTI ACEVEDO Attending Unavailable CARMEN CRUZ Attending Unavailable SIDNEY AMEZQUITA Attending Unavailable KAFTAN, ELICEO R Attending Unavailable KAFTAN, ELICEO R Referring Unavailable KAFTAN, ELICEO R Attending Unavailable KAFTAN, ELICEO R Referring Unavailable KAFTAN, ELICEO R Referring Unavailable LUBYRON Attending Unavailable KAFTAN, ELICEO R Referring Unavailable DIPTI ACEVEDO Attending Unavailable DIPTI ACEVEDO Attending Unavailable RON KING Attending Unavailable DIPTI ACEVEDO Attending Unavailable DIPTI ACEVEDO Attending Unavailable DIPTI ACEVEDO Attending Unavailable DIPTI ACEVEDO Attending Unavailable NELSY SNYDER Attending Unavailable PAULINE CHRISTENSEN Referring Unavailable CHRISTENSENPAULINE Referring Unavailable CHRISTENSENPAULINE GONSALVES Attending Unavailable CHRISTENSENPAULINE GONSALVES Attending Unavailable PAULINE CHRISTENSEN Attending Unavailable Allergies Allergy Classification Reported Allergen(s) Allergy Type Date of Onset Reaction(s) Facility risperiDONE (1 source) risperiDONE Drug Allergy 9 [facility] (20 sources) risperiDONE; Translations: [RisperDAL TABS] Drug Allergy 0 Intolerance, Other (See Comments) [facility] (1 source) oxyCODONE Drug Allergy [facility] (1 source) risperiDONE Drug Allergy [facility] (20 sources) POISON BRENDA EXTRACT; Translations: [POISON BRENDA EXTRACT] Drug Allergy 3 Rash [facility] (20 sources) risperiDONE Drug Allergy 9 [facility] (1 source) risperiDONE Drug Allergy 5 [facility] (1 source) risperiDONE Drug Allergy [facility] Repository (1 source) POISON BRENDA; Translations: [POISON BRENDA] Propensity to adverse reactions to drug (disorder) 2 [facility] Repository Medications Current Medications Medication Drug [...] oral tablet (8 sources) Opioid Agonist Start: 4 take 1 tablet by mouth three times daily acetaminophen-codeine (TYLENOL-COD #3) 300-30 mg per tablet Take 1 tablet by mouth three times a day. 0 01/24/2024 Active Comment on above: Take 1 tablet by yancy th three times a day. acetaminophen 325 mg / oxyCODONE hydrochloride 5 mg oral tablet (20 sources) Opioid Agonist Start: End: take 1 tablet by mouth every six hours as needed oxyCODONE-acetaminoph en (Percocet) 5-325 MG tablet TAKE 1 TABLET BY MOUTH EVERY 6 HOURS NEEDED FOR 7 DAYS 06/06/2024 07/11/2024 Discontinued Start: 09-06-2021 take 1 tablet by yancy th twice daily as needed oxyCODONE-Acetaminophen 5-325 MG 1 table t as needed Orally up to twice daily [...] 1 tablet by mouth every twelve hours [id number] 200 actuat albuterol 0.09 mg/actuat metered dose inhaler (20 sources) beta2-Adrenergic Agonist Start: 11-13-2024 End: 02-21-2025 take 2 puff(s) by inhalation every four hours for wheezing albuterol HFA 90 mcg/act inhaler Indications: Mild intermittent asthma, unspecified whether complicated (CMS/HCC) Inhale 2 puffs every 4 (four) hours if needed for wheezing 18 g 11/13/2024 02/21/2025 Active Start: 05-14-2024 End: 10-19-2024 take 2 puff(s) by inhalation every four hours for wheezing albuterol HFA 90 mcg/act inhaler Indications: Mild intermittent asthma, unspecified whether complicated (CMS/HCC) Inhale 2 puffs every 4 (four) hours if needed for wheezing 07/11/2024 Active Start: 06-05-2023 End: 09-16-2024 take 1 [...] on above: inhale 2 puffs by mo [facility] INTO THE LUNGS every 4 hours if needed ARIPiprazole 300 mg extended release prefilled syringe (20 sources) Atypical Antipsychotic Start: 09-16-2024 Aripiprazole (Abilify Maintena) 300 mg suspension,extended rel syring Active 300 MG IM Q28D September 16, 2024 12:00am Start: 02-26-2024 Abilify [...] into the appropriate muscle every 28 days. Active ARIPiprazole ER (Abilify) 400 MG injection Inject 400 mg into the shoulder, thigh, or buttocks 1 (one) time Active ARIPiprazole mon ohydrate (ABILIFY MAINTENA) 300 mg sers injection Inject 300 mg intramuscularly. 0 Active Comment on above: Take 30 mg by mouth once daily. Inject 300 mg intram uscularly. ascorbic acid 60 mg / beta carotene 5000 unt / copper sulfate 40 mg / dl-alpha tocopheryl acetate 30 unt / sodium selenite 0.04 mg / zinc oxide 40 mg oral tablet (7 sources) Vitamin C Start: 08-09-2024 take 1 tablet by mouth once daily Multiple Vitamin (Multivitamin Adult) tablet Take 1 tablet by mouth daily. 90 tablet 3 08/09/2024 Active Start: 08-09-2024 End: 09-26-2024 take 1 tablet by mouth in the morning Multiple Vitamin (Multivitamin Adult) tablet Take 1 tablet by mouth in the morning. 08/09/2024 09/26/2024 Discontinued (Therapy completed) atenolol 50 mg oral tablet (20 sources) beta-Adrenergic Zack Start: 06-24-2024 End: 05-26-2025 take 1 tablet by mouth once daily atenolol (Tenormin) 50 MG tablet Indications: Hypertension, unspecified type (CMS/HCC) Take 1 tablet (50 mg) by mouth Daily 90 tablet 1 11/27/2024 05/26/2025 Active Start: 07-07-2023 take 1 tablet by [...] every afternoon. celecoxib 200 mg oral capsule (20 sources) Nonsteroidal Anti-inflammatory Drug Start: 01-07-2024 take [...] 2020 9:25am take 1 capsule by mo [facility] in the morning, then take 1 capsule by mouth at bedtime celecoxib (CeleBREX) 200 mg capsule Take 1 capsule (200 mg total) by mouth in the morning and 1 capsule (200 mg total) before bedtime. 0 Active Comment on above: take 1 capsule by mo ut twice a day if needed cetirizine hydrochloride 10 mg oral tablet (20 sources) Histamine-1 Receptor Antagonist Start: 4 End: 4 take 1 tablet by mouth once daily cetirizine (ZyrTEC) 10 MG tablet Indications: Allergic rhinitis due to other allergic trigger, unspecified seasonality TAKE 1 TABLET BY MOUTH EVERY DAY 30 tablet 1 07/09/2024 Active Start: 10-15-2018 End: 12-19-2018 Cetirizine 5 mg Tablet Disco ntinued 1 TAB PO As Directed October 15, 2018 12:00am December 19, 2018 12:13pm Start: 10-15-2018 End: 12-19-2018 Cetirizine Discontinued 1 TA B PO As Directed October 15, 2018 1:00am December 19, 2018 1:13pm cholecalciferol 0.125 mg oral capsule (20 sources) Vitamin D Start: 05-27-2024 take 1 capsule by mouth once daily cholecalciferol (Vitamin D-3) 125 MCG (5000 UT) capsule Take 125 mcg by mouth Daily 05/27/2024 Active Start: 03-11-2024 [facility] Vitamin D3 125 MCG (5000 UT) per tablet Take 1 tablet by mouth daily. 90 tablet 3 03/11/2024 Active Start: 05-12-2023 take 1 capsule by mo [facility] once daily Cholecalciferol (Vitamin D3) (Vitamin D3) [...] by mouth once daily. 168 hr cloNIDine 0.06120 mg/hr transdermal system (4 sources) Central alpha-2 Adrenergic Agonist Start: 09-27-20 cloNIDine (CATAPRES-TTS) 0.1 mg/[address] 1 patch on the skin once a week. New patch on Monday 0 09/27/2023 Active colestipol hydrochloride 1000 mg oral tablet (9 sources) Bile Acid Sequestrant Start: 10-23-20 take 1 tablet by mouth in the morning colestipol (Colestid) 1 g tablet Take 1 g by mouth in the morning and 1 g in the evening. 10/23/2024 Active Daridorexant (5 sources) Start: 09-16-20 take 1 tablet by mouth once daily Daridorexant (Quviviq) 50 mg tablet Active 25 MG PO Daily September 16, 2024 12:00am Start: 09-16-2024 Daridorexant ( Quviviq) 50 mg tablet Active MG PO September 16, 2024 12:00am daridorexant (QUVIVIQ) 50 mg tablet (8 sources) daridorexant (QU VIVIQ) 50 mg tablet Take by mouth as directed. 0 Active Comment on above: Take by mouth as dir ected. daridorexant 50 mg tablet (8 sources) take 1 tablet by mouth once daily daridorexant 50 mg tablet Take 50 mg by mouth nightly. Active take 1 tablet by mouth once arleen y daridorexant 50 mg tablet Take 50 mg by mouth nightly. 0 Active Daridorexant HCl (Quviviq) 5 0 MG tablet (20 sources) take 1 tablet by yancy th at bedtime Daridorexant HCl (Quviviq) 50 MG [...] ml enoxaparin sodium 100 mg/ml prefilled syringe (15 sources) Low Molecular Weight Heparin Start: 05-29-2024 End: 07-11-2024 Enoxaparin Sodium 40 MG/0.4ML solution prefilled syringe INJECT 1 SYRINGE SUBCUTANEOUSLY ONCE EVERY 24 HOURS FOR 30 DAYS 05/29/2024 07/11/2024 Discontinued Start: 06-05-2023 End: 09-16-2024 inject 40 mg by subcutaneous injection once daily Enoxaparin 40 mg/0.4 mL syringe Discontinued 40 MG SUBCUT Daily June 04, 2023 11:00pm September 16, 2024 3:04pm estradiol 0.1 mg/ml vaginal cream (20 sources) Estrogen Start: 10-22-2024 estradiol (Est race) 0.1 MG/GM vaginal cream Indications: Hormone replacement therapy , Dyspareunia in female Apply 0.5g vaginally twice weekly. 42.5 g 1 11/26/2024 Active Start: 09-16-2024 Estradiol 0.01 % (0.1 mg/gram) cream Active 1 APPLICATOR VAGINAL .twice a week September 16, 2024 12:00am Start: 09-16-2024 Estradiol 0.01 % (0.1 mg/gram) [...] 42.5 g 3 03/14/2024 Active Start: 02-27-2024 estradiol (Est race) 0.1 MG/GM vaginal cream Use 1 gram vaginally nightly x 2 weeks then twice per weel 02/27/2024 Active Start: 02-27-2024 End: 03-14-2024 estradiol (ESTRACE) [...] mg ferrous sulfate 325 mg oral tablet (20 sources) Start: 09-16-2024 Ferrous Sulfat e 325 mg (65 mg iron) tablet Active 325 MG PO .3 times a week September 16, 2024 12:00am Start: 09-16-2024 Ferrous Sulfat e 325 mg (65 mg iron) tablet Active MG PO September 16, 2024 12:00am Start: 03-11-2024 take 1 tablet by yancy th every other day ferrous sulfate 325 (65 Fe) MG tablet Take 325 mg by mouth every other day 03/11/2024 Active 30 actuat fluticasone furoate 0.1 mg/actuat / umeclidinium 0.0625 mg/actuat / vilanterol 0.025 mg/actuat dry powder inhaler (20 sources) Anticholinergic, Corticosteroid, beta2-Adrenergic Agonist Start: 12-11-2024 take 1 puff(s) by mouth once daily Trelegy Ellipta 100-62.5-25 MCG/ACT aerosol powder Indications: Mild intermittent asthma, unspecified whether complicated (CMS/HCC) INHALE 1 PUFF BY MOUTH DAILY 60 each 1 12/11/2024 Active Start: 10-14-2024 take 1 puff(s) by mo ut once daily Trelegy Ellipta 100-62.5-25 MCG/ACT aerosol powder Indications: Mild intermittent asthma, unspecified whether complicated (CMS/HCC) INHALE 1 PUFF BY MOUTH DAILY 60 each 1 10/14/2024 Active Start: 09-16-2024 Fluticasone-Um eclidin-Vilanter (Trelegy Ellipta) 100-62.5-25 mcg blister with device Active 1 INH INHALATION Daily September 16, 2024 12:00am Start: 09-16-2024 Fluticasone-Um eclidin-Vilanter (Trelegy Ellipta) 100-62.5-25 mcg blister with device Active INHALATION September 16, 2024 12:00am Start: 08-15-2024 take 1 puff(s) by mo [facility] once daily Trelegy Ellipta 100-62.5-25 MCG/ACT aerosol powder Indications: Mild intermittent asthma, unspecified whether complicated (CMS/HCC) INHALE 1 PUFF BY MOUTH DAILY 60 each 1 08/15/2024 Active Start: 01-11-2024 End: 12-08-2024 take 1 puff(s) by inhalation once daily Byqcayquifv-Slwlsgzhs-Ajjhvo 100-62.5-25 MCG/ACT aerosol powder Indications: Asthma Inhale 1 puff Daily 07/11/2024 12/08/2024 Active Start: 07-20-2023 Trelegy Ellipt a 100-62.5-25 MCG/ACT Aerosol Powder, breath activated inhaler Inhalation for 30 Days 07/20/2023 Active Start: 07-20-2023 take 1 puff(s) by mo uth once daily TRELEGY ELLIPTA 100-62.5-25 MCG/ACT AEPB Take 1 puff by mouth. Inhale once daily 0 07/20/2023 Active Start: 05-31-2022 take 1 puff(s) by in halation in the morning lkhkeyzbbix-fbdmsdzqh-ebnhgrqu (TRELEGY ELLIPTA) 100-62.5-25 mcg blister with device Indications: Asthma, unspecified asthma severity, unspecified whether complicated, unspecified whether persistent Inhale 1 puff in the morning. 60 each 5 05/31/2022 Active End: 07-11-2024 Lgivtpwdnvq-Uddlokmak-Wanwtn (Trelegy Ellipta) 100-62.5-25 MCG/ACT aerosol powder Inhale 07/11/2024 Discontinued take 1 puff(s) by in halation once daily Trelegy Ellipta 100-62.5-25 MCG/INH 1 puff Inhalation Once a day Not-Taking Comment on above: Inhale 1 Puff as ins tructed once daily. fluvoxaMINE maleate 50 mg oral tablet (12 sources) Serotonin Reuptake Inhibitor Start: 4 take 1 tablet by mouth at bedtime fluvoxaMINE (Luvox) 50 MG tablet Take 50 mg by mouth at bedtime 10/10/2024 Active 1.5 ml fremanezumab-vfrm 150 mg/ml auto-injector (20 sources) Start: 3 End: 4 fremanezumab-vfrm (AJOVY AUTOINJECTOR) 225 mg/1.5 mL Indications: Other migraine without status migrainosus, not intractable inject 1 AND 1/2 milliliters subcutaneously every 28 DAYS 1.5 mL 5 10/23/2023 Active Start: 06-05-2023 End: 09-16-2024 Fremanezumab-Vfrm (Ajovy Aut oinjector) 225 mg/1.5 mL auto-injector Discontinued 225 MG SUBCUT every month June 04, 2023 11:00pm September 16, 2024 3:04pm End: 07-11-2024 fremanezumab (Ajovy) 225 MG/ 1.5ML auto-injector Inject 225 mg under the skin. 07/11/2024 Discontinued Comment on above: inject 1 AND 1/2 milliliters subcutaneou sly every 28 DAYS 1 ml galcanezumab-gnl m 120 mg/ml auto-injector (20 sources) Start: 05-15-20 End: 12-11-19 inject 120 mg by subcutaneous injection every 30 days galcanezumab-gnlm 120 mg/mL pen injector Indications: Other migraine without status migrainosus, not intractable Inject 120 mg under the skin every 30 (thirty) days. 1 mL 3 12/11/2024 Active Start: 05-15-2024 End: 05-15-2024 inject 240 mg by subcutaneous injection once galcanezumab-gnlm 120 mg/mL pen injector Indications: Other migraine without status migrainosus, not intractable Inject 240 mg under the skin once for 1 dose. 2 mL 05/15/2024 05/15/2024 Active End: 01-25-2024 galcanezumab-gnlm (EMGALITY SYRINGE) 120 mg/mL syringe Inject subcutaneously once every month. Do not shake. 0 01/25/2024 Discontinued (Course of therapy completed) Comment on above: Inject subcutaneousl y once every month. Do not shake. inulin 200 mg / lactobacillus rhamnosus gg [id number] unt oral capsule (1 source) Start: End: take 1 capsule by mouth once daily lactobacillus rhamnosus (CULTURELLE) 10 billion cell -200 mg capsule Take 1 capsule by mouth once daily. 30 capsule 0 06/07/2022 07/07/2022 Active Comment on above: Take 1 capsule by [facility] once daily. iv contrast [...] Jan, 60 mg L-Theanine 200 MG capsule (20 sources) take 1 capsule by mouth once daily L-Theanine 200 MG capsule Take 1 capsule by mouth Daily Active lamoTRIgine 25 mg disintegrating oral tablet (20 sources) Mood Stabilizer, Anti-epileptic Agent Start: 3 End: 4 take 1 tablet by mouth in the morning lamoTRIgine (LaMICtal) 25 MG disintegrating tablet Take 25 mg by mouth in the morning. 09/27/2023 07/11/2024 Discontinued Start: 12-19-2018 End: 06-05-2023 take 1 tablet by mouth once daily Lamotrigine (Lamictal) 200 mg Tablet Discontinued 200 MG PO Daily December 19, 2018 12:00am June 05, 2023 9:13am Start: 10-15-2018 End: 12-19-2018 take 1 tablet by mouth twice daily Lamotrigine 150 mg tablet Discontinued 1 TAB PO Twice daily October 15, 2018 12:00am December 19, 2018 12:14pm End: 10-25-2024 take 1 tablet by mouth in the morning lamoTRIgine (LaMICtal) 25 mg tablet Take 1 tablet (25 mg total) by mouth in the morning. Active take 1 tablet by yancy th once daily lamoTRIgine dispersible/chewable (LAMICTAL) 25 mg tablet Take 25 mg by mouth once daily. 0 Active take 2 tablets by mo uth in the morning lamoTRIgine (LaMICtal) 25 mg tablet Take 2 tablets (50 mg total) by mouth in the morning. 0 Active Comment on above: Take 25 mg by mouth once daily. lisdexamfetamine dimesylate 70 mg oral capsule (20 sources) Central Nervous System Stimulant Start: 03-09-20 End: 07-11-20 take 1 capsule by mouth once daily Vyvanse 70 MG capsule Take 70 mg by mouth Daily 03/09/2024 07/11/2024 Discontinued Start: 01-22-2024 End: 08-07-2024 Vyvanse 50 MG capsule Take 7 0 mg by mouth Daily (with dinner). 01/22/2024 08/07/2024 Discontinued Start: 01-22-2024 take 1 capsule by mouth once V YVANSE 50 mg capsule Take 1 capsule by mouth every afternoon. 0 01/22/2024 Active Start: 10-20-2023 VYVANSE 30 mg capsule Take 1 capsule (30 mg total) by mouth. 10/20/2023 Active Start: 02-18-2020 End: 06-05-2023 take 1 capsule by mouth once daily Lisdexamfetamine (Vyvanse) 40 mg Capsule Discontinued 40 MG PO Daily February 17, 2020 11:00pm June 05, 2023 9:13am Comment on above: Take 1 capsule by mo [facility] every afternoon. LORazepam 1 mg oral tablet (20 sources) Benzodiazepine Start: take 1 tablet by [...] 16, 2024 3:04pm [facility] LORazepam 0.5 MG 1 tablet at bedtime as needed Orally Once a day Active losartan potassium 25 mg oral tablet (20 sources) Angiotensin 2 Receptor Zack Start: 05-14-2024 End: 05-14-2025 take 1 tablet by mouth once daily losartan (Cozaar) 25 MG tablet Indications: Hypertension, unspecified type (CMS/HCC) Take 1 tablet (25 mg) by mouth Daily 30 tablet 11 05/14/2024 05/14/2025 Active 24 hr methylphenidate hydrochloride 54 mg extended release oral tablet (20 sources) Central Nervous System Stimulant Start: 09-16-2024 take 1 mg by mouth every twenty-four hours Methylphenidate Hcl 54 mg tablet extended release 24hr Active MG PO September 16, 2024 12:00am Start: 06-26-2024 take 1 tablet by yancy once daily methylphenidate ER (Concerta) 54 MG CR tablet Take 54 mg by mouth Daily 06/26/2024 Active Start: 09-13-2017 End: 10-01-2018 take 1 tablet by mouth twice daily Methylphenidate Hcl 20 mg tablet Discontinued 1 TAB PO Twice daily September 13, 2017 12:00am October 01, 2018 9:43am 24 hr mirabegron 50 mg extended release oral tablet (19 sources) beta3-Adrenergic Agonist Start: 09-16-2024 take 1 [...] split. 30 tablet 11 09/04/2024 09/04/2025 Active Multiple Vitamin (Daily-Elisa Multivitamin) tablet (7 sources) Start: 11-04-2024 take 1 tablet by mouth once daily Multiple Vitamin (Daily-Elisa Multivitamin) tablet Take 1 tablet by mouth Daily 11/04/2024 Active nystatin 639703 unt/ml oral suspension (20 sources) Polyene Antifungal Start: 08-01-2024 End: 08-09-2024 nystatin (Mycostatin) [id number] UNIT/ML suspension Indications: Oral candidiasis Take 5 mL (500,000 Units) by mouth in the morning and 5 mL (500,000 Units) at noon and 5 mL (500,000 Units) in the evening and 5 mL (500,000 Units) before bedtime. Do all this for 8 days. 160 mL 08/01/2024 08/09/2024 Active Start: 05-03-2024 End: 07-11-2024 nystatin (Mycostatin) [id number] UNIT/ML suspension Take 5 mL by mouth in the morning and 5 mL at noon and 5 mL in the evening and 5 mL before bedtime. BY MOUTH for 1-2 MINUTES and then swallow. 05/03/2024 07/11/2024 Discontinued Start: 02-08-2022 End: 11-17-2022 nystatin (MYCOSTATIN) cream Indications: Yeast infection of the skin Apply 1 application to affected area twice daily. 30 g 0 02/08/2022 11/17/2022 Discontinued Start: 11-29-2020 take 4 mL by mouth f our times daily Start: 11-29-2020 Comment on above: Apply 1 application to affected area twice daily. omeprazole 40 mg delayed release oral capsule (20 sources) Proton Pump Inhibitor Start: take 1 capsule by mouth in the [...] tablet (20 sources) Serotonin-3 Receptor Antagonist Start: 05-27-2024 End: 07-11-2024 ondansetron ODT (Zofran-ODT) 4 MG disintegrating tablet DISSOLVE 1 TABLET ON THE TONGUE EVERY 8 HOURS NEEDED FOR NAUSEA/ VOMITING FOR 5 DAYS 05/27/2024 07/11/2024 Discontinued Start: 08-12-2023 take 1 tablet by yancy th every eight hours as needed Ondansetron (ZOFRAN-ODT) [...] tablet by mouth every twelve hours Quviviq 25 MG tablet (7 sources) Start: 4 take 1 tablet by mouth at bedtime as needed for sleep Quviviq 25 MG tablet TAKE 1 TABLET BY MOUTH BEDTIME ( NEEDED) FOR SLEEP 10/16/2024 Active Quviviq 50 MG tablet (3 sources) take 1 tablet by mouth once [...] bedtime. rimegepant 75 mg disintegrating oral tablet (8 sources) Start: 3 rimegepant 75 mg tablet,disintegratin g Indications: Other migraine without status migrainosus, not intractable Dissolve 1 tablet on tongue daily as needed (Migraine headache). 12 tablet 4 10/23/2023 Active rOPINIRole 2 mg oral tablet (20 sources) Nonergot Dopamine Agonist Start: 5 take 1 tablet by mouth at bedtime rOPINIRole (Requip) 2 MG tablet Indications: Restless legs syndrome TAKE 1 TABLET BY MOUTH AT BEDTIME 90 tablet 1 11/26/2024 Active Start: 06-05-2023 End: 11-30-2024 take 1 tablet by mouth in the morning rOPINIRole (Requip) 1 MG tablet Indications: Restless legs syndrome TAKE 1 TABLET BY MOUTH IN THE MORNING 90 tablet 1 11/26/2024 Active Start: 09-19-2021 take 1 mg by mouth t wice daily, then take 1 mg by mouth in the morning, then take 1 tablet by mouth in the evening rOPINIRole (REQUIP) 2 mg tablet Take 1 mg by mouth twice daily. Takes 1 mg in the AM and 2 mg PM 0 09/19/2021 Active Start: 11-29-2019 End: 11-30-2024 take 1 mg by mouth once daily in the morning rOPINIRole (REQUIP) 2 mg tablet Take 1 tablet (2 mg total) by mouth nightly. 1 mg in the morning 11/29/2019 Active Start: 06-19-2019 End: 09-16-2024 take [...] in the AM and 2 mg PM sennosides, care home 8.6 mg oral tablet (6 sources) Start: 4 End: 4 take 1 tablet by mouth once daily as needed for constipation [facility] 8.6 MG tablet TAKE 1 TABLET BY MOUTH DAILY NEEDED FOR CONSTIPATION FOR 7 DAYS 05/27/2024 07/11/2024 Discontinued sucralfate 1000 mg oral tablet (20 sources) Aluminum Complex Start: 3 End: 3 take 1 tablet by mouth four times [...] Take 1 tablet by yancy twice daily. sulfamethoxazole 800 mg / trimethoprim [...] two times a day for 7 days. suvorexant 10 mg oral tablet (2 sources) Orexin Receptor Antagonist Start: 4 End: take 1 tablet by mouth at bedtime Belsomra 10 MG tablet Take 10 mg by mouth at bedtime 06/26/2024 07/11/2024 Discontinued traMADol hydrochloride 50 mg oral tablet (20 [...] mg/ml topical cream (20 sources) Corticosteroid Start: 11-27-2024 triamcinolone (Kenalog) 0.1 % cream Indications: Erythema Apply topically 2 (two) times a day 45 g 1 11/27/2024 Active Start: 09-04-2024 triamcinolone (Kenalog) 0.1 % cream Indications: Erythema Apply topically 2 (two) times a day 45 g 09/04/2024 Active Start: 06-03-2024 End: 07-11-2024 triamcinolone (Kenalog) 0.1 % cream Indications: Rash and other nonspecific skin eruption Apply to affected areas, up to twice a day when flared, do not use one the face, groin, or underarms, 30 day supply 30 g 11 06/03/2024 07/11/2024 Discontinued Start: 09-14-2022 Kenalog-40 Oct, 40 mg Start: 08-19-2021 KENALOG - 10 m g Aug, 10 mg Vitamin B12 100 MCG (9 sources) Vitamin B12 100 MCG as directed Orally Active Completed/Discontinued Medications Medication Drug Class(es) Dates Sig (Normalized) Sig (Original) acetaminophen 250 mg / aspirin 250 mg / caffeine 65 mg oral tablet (12 sources) Platelet Aggregation Inhibitor, Nonsteroidal Anti-inflammatory Drug, [...] 9:40am alendronic acid 70 mg oral tablet (9 sources) Bisphosphonate Start: 06-05-2023 End: 09-16-2024 take 1 tablet by mouth every week Alendronate (Fosamax) 70 mg Tablet Discontinued 70 MG PO every week June 04, 2023 11:00pm September 16, 2024 3:04pm ALPRAZolam 1 mg oral tablet (12 sources) Benzodiazepine Start: 09-13-2017 End: 10-01-2018 take 1 tablet by mouth three times daily Alprazolam 1 mg tablet Discontinued 1 TAB PO Three times daily September 13, 2017 12:00am October 01, 2018 9:40am amitriptyline hydrochloride 25 mg oral tablet (12 sources) Tricyclic Antidepressant Start: 02-18-2020 End: 06-05-2023 take 5 tablets by mouth once daily Amitriptyline 25 mg Tablet Discontinued 125 MG PO Daily February 17, 2020 11:00pm June 05, 2023 9:13am Start: 02-18-2020 End: 06-05-2023 take 125 mg by mouth once daily Amitriptyline Discontinued 125 MG PO Daily February 18, 2020 12:00am June 05, 2023 10:13am atorvastatin 20 mg oral tablet (20 sources) HMG-CoA Reductase Inhibitor Start: 03-10-2022 End: 09-16-2024 take 1 tablet by mouth once daily Atorvastatin (Lipitor) 20 mg Tablet Discontinued 20 MG PO Daily June 04, 2023 11:00pm September 16, 2024 3:04pm Comment on above: Take 20 mg by mouth once daily. baclofen 10 mg oral tablet (9 sources) gamma-Aminobutyric Acid-ergic Agonist Start: 08-01-2024 End: 09-26-2024 take 1 tablet by mouth once daily baclofen (Lioresal) 10 MG tablet Take 10 mg by mouth Daily 08/01/2024 09/26/2024 Discontinued (Therapy completed) betamethasone 0.5 mg/ml topical cream (3 sources) Corticosteroid End: 12-20-2023 betamethasone dipropionate 0.05 % cream Apply 1 Application topically in the morning and 1 Application before bedtime. 0 12/20/2023 Discontinued (Therapy completed) brexpiprazole 3 mg oral tablet (12 sources) Atypical Antipsychotic Start: 02-18-2020 End: 06-05-2023 [...] 500 mg cephalexin 500 mg oral capsule (12 sources) Cephalosporin Antibacterial Start: 09-20-20 17 End: 10-01-20 18 take 1 capsule by mouth every eight hours Cephalexin (Keflex) 500 mg capsule Discontinued 500 MG PO Q8H 26 05September 20, 2017 12:00am October 01, 2018 9:40am clonazePAM 0.5 mg oral tablet (20 sources) [...] 1 capsule by mo uth before breakfast Dexlansoprazole (Dexilant) 60 mg Capsule,Biphase Delayed Releas (9 sources) Start: 023 End: 11-11-2 024 take 1 capsule by mouth once daily Dexlansoprazole (Dexilant) 60 mg Capsule,Biphase Delayed Releas Discontinued 60 MG PO Daily June 04, 2023 11:00pm September 16, 2024 3:04pm Start: 06-05-2023 take 1 capsule by [facility] once daily Dexlansoprazole (Dexilant) 60 mg Capsule,Biphase Delayed Releas Active 60 MG PO Daily June 04, 2023 11:00pm Start: 06-05-2023 take 1 capsule by [facility] once daily Dexlansoprazole (Dexilant) 60 mg Capsule,Biphase Delayed Releas Active 60 MG PO Daily June 05, 2023 12:00am diazePAM 10 mg oral tablet (6 sources) Benzodiazepine Start: 07-05-2024 End: 09-04-2024 diazePAM (Valium) 10 MG tablet Take 10 mg by mouth 07/05/2024 09/04/2024 Discontinued (Therapy completed) docusate sodium 50 mg / sennosides, care home 8.6 mg oral tablet (12 sources) Start: 09-20-2017 End: 10-01-2018 take 2 tablets by mouth twice daily Sennosides-Docus ate Sodium (Dok Plus) 8.6-50 mg Tablet Discontinued 2 TAB PO Twice daily 40 September 20, 2017 12:00am October 01, 2018 9:42am eszopiclone 3 mg oral tablet (19 sources) Start: 06-05-2023 End: 09-16-2024 take 1 tablet by mouth once daily at bedtime Eszopiclone (Lunesta) 3 mg Tablet Discontinued 3 MG PO Daily at bedtime June 04, 2023 11:00pm September 16, 2024 3:04pm 24 hr fexofenadine hydrochloride 180 mg / pseudoephedrine hydrochloride 240 mg extended release oral tablet (12 sources) alpha-Adrenergic Agonist, Histamine-1 Receptor Antagonist Start: 12-19-2018 End: 06-18-2019 take 1 tablet by mouth once daily in the morning, then take 1 tablet by mouth every twenty-four hours Fexofenadine-Pse udoephedrine (Ember-D 24 Hour) 180-240 mg Tablet Extended Release 24 Hr Discontinued 1 TAB PO Every morning December 19, 2018 12:00am June 18, 2019 2:04pm fluconazole 150 mg oral tablet (12 sources) Azole Antifungal Start: 02-18-2020 End: 06-05-2023 Fluconazole (Diflucan) 150 mg tablet Discontinued 150 MG PO Once 1 February 17, 2020 11:00pm June 05, 2023 9:13am take one PO, if still symptomatic then take another pill in 72 hrs fluticasone propionate 0.05 mg/actuat metered dose nasal spray (20 sources) Corticosteroid Start: 10-15-2018 End: 11-17-2022 Fluticasone Propionate (Flonase Allergy Relief) 50 mcg/actuation Lynd,Suspension Discontinued 2 SPRAY INTRANASAL Daily October 15, 2018 12:00am June 18, 2019 2:04pm Comment on above: Use 1 Lynd in each nostril once daily. Fluticasone Propion-Salmeterol (20 sources) Corticosteroid, beta2-Adrenergic Agonist Start: 06-18-2019 End: [...] days. hydrOXYzine hydrochloride 50 mg oral tablet (20 sources) Antihistamine Start: 02-18-2020 End: 06-05-2023 take [...] 2019 2:04pm ibuprofen 800 mg oral tablet (13 sources) Nonsteroidal Anti-inflammatory Drug Start: 08-01-2024 End: [...] needed for pain. Take 1 tablet by [facility] every 6 hours as needed for pain for up to 7 days. lactobacillus rhamnosus gg [id number] unt oral capsule (20 sources) Start: End: 3 take 1 capsule by mouth [...] Discontinued Start: 12-27-2021 take 1 capsule by [facility] once daily lactobacillus rhamnosus (CULTURELLE) 10 billion cell capsule Take 1 capsule by mouth once daily. 30 capsule 0 12/27/2021 Active Comment on above: Take 1 capsule by [facility] once daily. linaclotide (12 sources) Guanylate Cyclase-C Agonist Start: 10-01-2018 End: [...] mL lurasidone hydrochloride 40 mg oral tablet (12 sources) Atypical Antipsychotic Start: 06-18-2019 End: 02-18-2020 take 1 tablet by mouth once daily Lurasidone (Latuda) 40 mg tablet Discontinued 60 MG PO Daily June 17, 2019 11:00pm February 18, 2020 9:26am methylPREDNISolone 4 mg oral tablet (20 sources) Corticosteroid Start: 09-16-2024 End: 10-14-2024 take 1 tablet by mouth once Methylprednisolone (Medrol (Salvador)) 4 mg tablets,dose pack Discontinued 0 PO per package directions September 16, 2024 12:00am October 14, 2024 8:29am PO PER PKG DIR for 6 days [...] to surgery. mirtazapine 15 mg oral tablet (12 sources) Start: 019 End: 020 take 2 tablets by mouth once daily Mirtazapine (Remeron) 15 mg Tablet Discontinued 30 MG PO Daily December 19, 2018 12:00am February 18, 2020 9:26am montelukast 10 mg oral tablet (12 sources) Leukotriene Receptor Antagonist Start: End: take [...] Comment on above: Take 2 tablets by [facility] as directed. Take 2 tablet at 6pm, 7pm, and 11pm the evening prior to surgery. nitrofurantoin, macrocrystals 25 mg / nitrofurantoin, monohydrate 75 mg oral capsule (15 sources) Nitrofuran Antibacterial Start: End: take 1 capsule by mouth twice daily at mealtime Nitrofurantoin Monohyd/M-Cryst (Macrobid) 100 mg capsule Discontinued 100 MG PO Twice daily 10 February 17, 2020 11:00pm June 05, 2023 9:13am must administer with a meal/food Comment on above: Take 1 capsule by [facility] twice daily. 24 hr oxybutynin chloride 10 mg extended release oral tablet (12 sources) Cholinergic Muscarinic Antagonist Start: End: take 1 tablet by mouth once daily Oxybutynin Chloride (Ditropan Xl) 10 mg Tablet Extended Release 24hr Discontinued 10 MG PO Daily October 01, 2018 12:00am June 19, 2019 12:23pm phenazopyridine hydrochloride 200 mg oral tablet (12 sources) Start: End: take 1 tablet by mouth every eight hours Phenazopyridine (Pyridium) 200 mg tablet Discontinued 200 MG PO Q8H 6 2 February 17, 2020 11:00pm June 05, 2023 9:13am polyethylene glycol 3350 [id number] mg powder for oral solution (3 sources) [...] 01, 2018 12:00am October 15, 2018 2:24pm End: 10-25-2024 take 2 capsules by mouth three times daily pregabalin 25 MG capsule Take 2 capsules by mouth 3 times daily. 10/25/2024 Discontinued (Patient Preference) prucalopride 2 mg oral tablet (20 sources) Start: 01-05-2022 End: 03-14-2022 take 1 tablet by mouth once daily MOTEGRITY 2 mg tab tablet Indications: Chronic idiopathic constipation take 1 tablet by mouth once daily 30 tablet 6 01/05/2022 03/14/2022 Discontinued (Discontinued by another Health Care Provider) Comment on above: take 1 tablet by [facility] once daily psyllium 520 mg oral capsule (3 sources) Start: 12-27-2021 End: 02-08-2022 psyllium Husk (METAMUCIL) 0.52 gram capsule Take 1 capsule by mouth as directed. As needed for constipation 0 12/27/2021 02/08/2022 Discontinued (Course of therapy completed) Comment on above: Take 1 capsule by [facility] as directed. As needed for constipation QUEtiapine 200 mg oral tablet (12 sources) Atypical Antipsychotic Start: 10-01-2018 End: 12-19-2018 [...] Comment on above: Take 2 tablets by [facility] three times daily as [...] Take 1 tablet by yancy th every 8 hours as needed. Trelegy Ellipta [...] on above: Take 1,000 mcg by mo uth once daily. vortioxetine 10 mg oral tablet [...] Translations: [Chronic tonsillitis] Onset: 1 Resolved: 2 10-24-2023 Chronic Administrative/social admission (3 sources) Education and/or schooling finding; Translations: [Problems related to education and literacy, unspecified] Onset: 4 01-22-2024 Episodic Anxiety disorders (20 sources) Anxiety; Translations: [Anxiety [...] Episodic Conditions associated with dizziness or vertigo (15 sources) Postural dizziness; Translations: [Dizziness and giddiness] 02-18-2020 Episodic Diseases of mouth; excluding dental (2 sources) Glossodynia; Translations: [Glossodynia] 08-01-2024 Episodic Disorders usually diagnosed in infancy, childhood, or adolescence (20 sources) Attention deficit hyperactivity disorder, predominantly inattentive type; Translations: [Other specified behavioral and emotional disorders with onset usually occurring in childhood and adolescence] Onset: 3 04-04-2023 Chronic Esophageal disorders (20 sources) Gastroesophageal reflux disease; Translations: [Gastro-esophageal reflux disease without esophagitis] Onset: 1 10-15-2021 Chronic Esophageal disorders (2 sources) Esophagitis; Translations: [[place] grade D esophagitis] 04-12-2024 Episodic Essential hypertension (20 sources) Hypertensive disorder; Translations: [Essential (primary) hypertension] Onset: 0 10-08-2020 Chronic Fluid and electrolyte disorders (1 source) Dehydration; Translations: [DEHYDRATION] Onset: 3 Episodic Gastrointestinal hemorrhage (3 sources) Gastrointestinal hemorrhage; Translations: [Hemorrhage of gastrointestinal tract, unspecified] Episodic Genitourinary congenital anomalies (2 sources) Disorder of hymen; 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] 09-24-2024 Chronic Genitourinary symptoms and ill-defined conditions (20 sources) Incontinence; Translations: [Unspecified urinary incontinence] Onset: 2 04-06-2023 Chronic Headache; including migraine (20 sources) Migraine, unspecified, not intractable, without status migrainosus; Translations: [Other migraine, not intractable, without status migrainosus] Onset: 1 04-04-2023 Chronic Headache; including migraine (4 sources) Headache; including migraine; Translations: [HEADACHE UNSPECIFIED] Onset: 3 Inflammatory diseases of female pelvic organs (2 sources) Chronic vulvitis; Translations: [Subacute and chronic vulvitis] 09-04-2024 Episodic Menopausal disorders (20 sources) Genitourinary syndrome of menopause; Translations: [Other specified menopausal and perimenopausal disorders] Onset: 1 08-04-2021 Chronic Miscellaneous mental health disorders (11 sources) Avoidant restrictive food intake disorder; Translations: [Avoidant/restrictive food intake disorder] Onset: 0 08-07-2024 Chronic Mood disorders (20 sources) Bipolar I disorder; Translations: [Bipolar disorder, unspecified] Onset: 2 10-08-2020 Chronic Mycoses (4 sources) Candidiasis of skin; Translations: [Candidiasis of skin and nail] Episodic Noninfectious gastroenteritis (1 source) Chronic diarrhea; Translations: [Noninfective gastroenteritis and colitis, unspecified] 10-23-2024 Episodic Nonspecific chest pain (20 sources) Chest pain; Translations: [Chest pain, unspecified] 08-15-2021 Episodic Nutritional deficiencies (20 sources) Vitamin D deficiency; Translations: [Vitamin D deficiency, unspecified] Onset: 3 04-04-2023 Chronic Osteoarthritis (20 sources) Arthritis of right acromioclavicular joint; Translations: [Primary osteoarthritis, right shoulder] Onset: 0 09-29-2020 Chronic Other acquired deformities (5 sources) Contracture, right ankle; Translations: [CONTRACTURE RIGHT ANKLE] Onset: 2 Chronic Other aftercare (1 source) Other roasterman (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; Translations: [OTH [facility] CURRENT DRUG THERAPY] Onset: 3 Episodic Other circulatory disease (2 sources) Spider nevus; Translations: [Nevus, non-neoplastic] 11-19-2024 Episodic Other connective tissue disease (5 sources) Pain in right foot; Translations: [PAIN IN RIGHT FOOT] Onset: 3 Episodic Other diseases of bladder and urethra (20 sources) Overactive bladder; Translations: [Overactive bladder] Onset: 3 04-06-2023 Chronic Other disorders of stomach and duodenum (2 sources) Pylorospasm; Translations: [Pylorospasm, not elsewhere classified] Episodic Other disorders of stomach and duodenum (2 sources) Nonulcer dyspepsia; Translations: [Functional dyspepsia] Episodic Other female genital disorders (2 sources) Postcoital bleeding; Translations: [Postcoital and contact bleeding] 09-27-2024 Chronic Other female genital disorders (1 source) Postcoital and contact bleeding; Translations: [Postcoital and contact bleeding] Onset: 4 Chronic Other female genital disorders (2 sources) [...] sources) Chronic constipation; Translations: [Other constipation] Onset: 2 04-05-2022 Episodic Other gastrointestinal disorders (20 sources) Constipation; [...] the digestive system] Episodic Other gastrointestinal disorders (1 source) Abdominal distension (gaseous); Translations: [Abdominal distension (gaseous)] Onset: 5 Episodic Other hematologic conditions (3 sources) Raised cardiac enzyme or marker; Translations: [Other abnormal blood chemistry] Episodic Other hereditary and degenerative nervous system conditions (20 sources) Restless legs; Translations: [Restless legs syndrome] Onset: 0 04-04-2023 Chronic Other inflammatory condition of skin (2 [...] Resolved: 2 Chronic Other nervous system disorders (20 sources) Tarsal tunnel syndrome; Translations: [Tarsal tunnel [...] IN RIGHT ANKLE] Onset: 2 Episodic Other non-traumatic joint disorders (1 source) Pain in right shoulder; Translations: [Pain in right shoulder] Onset: 5 Episodic Other non-traumatic joint disorders (1 source) Pain in left shoulder; Translations: [Pain in left shoulder] Onset: 5 Episodic Other nutritional; endocrine; and metabolic disorders [...] nutritional; endocrine; and metabolic disorders (1 source) Inadequate oral intake; Translations: [Other symptoms and signs concerning food and fluid intake] 10-23-2024 Episodic Other skin disorders (2 sources) Night sweats; Translations: [Generalized hyperhidrosis] 09-04-2024 Episodic Other skin disorders (3 sources) Granulation of tissue; Translations: [Granulomatous disorder of the skin and subcutaneous tissue, unspecified] 09-24-2024 Episodic Other skin disorders (2 sources) Seborrheic keratosis; Translations: [Other seborrheic keratosis] 11-19-2024 Episodic Other skin disorders (2 sources) Lentiginosis; Translations: [Other melanin hyperpigmentation] 11-19-2024 Episodic Other upper respiratory disease (19 sources) Sinusitis; Translations: [Allergic rhinitis, unspecified] Chronic Other upper respiratory disease (1 source) Allergic rhinitis, unspecified Onset: 2 Resolved: 2 Chronic Other upper respiratory disease (20 sources) Allergic rhinitis; Translations: [Allergic rhinitis, unspecified] Onset: 6 04-04-2023 Chronic Other upper respiratory infections (20 sources) Chronic sinusitis; Translations: [Chronic sinusitis, unspecified] Onset: 1 10-24-2023 Chronic Other upper respiratory infections (12 sources) Upper respiratory infection; Translations: [Acute upper respiratory infection, unspecified] 09-24-2017 Episodic Residual codes; unclassified (20 sources) Obstructive sleep apnea syndrome; Translations: [Obstructive sleep apnea (adult) (pediatric)] Onset: 3 Chronic Residual codes; unclassified (4 sources) Obstructive sleep apnea (adult) (pediatric); Translations: [Obstructive sleep apnea (adult) (pediatric)] Onset: 3 Chronic Residual codes; unclassified (20 sources) Device in situ; Translations: [Presence of functional implant, unspecified] Onset: 3 08-21-2023 Chronic Residual codes; unclassified (20 sources) Daytime hypersomnia; Translations: [Hypersomnia, unspecified] Onset: [...] source) Pain; Translations: [Pain, unspecified] 09-29-2020 Episodic Residual codes; unclassified (1 source) History of colectomy; Translations: [Acquired absence of other specified parts of digestive tract] Onset: 4 10-25-2024 Episodic Spondylosis; intervertebral disc disorders; other back problems (20 sources) Degeneration of cervical intervertebral disc; Translations: [Other cervical disc degeneration, unspecified cervical region] Onset: 8 Resolved: 2 Chronic Unclassified (1 source) PERSONAL HISTORY OF COVID-19; [...] without bleeding] Onset: 4 Urinary tract infections (20 sources) Chronic interstitial cystitis; Translations: [Interstitial cystitis (chronic) without hematuria] Onset: 3 04-06-2023 Chronic Urinary tract infections (20 sources) Urinary tract infectious disease; Translations: [Urinary tract infection, site not specified] Onset: 2 02-18-2020 Episodic Viral infection (12 sources) Disease caused by 2019-nCoV; Translations: [COVID-19] 08-15-2021 Episodic Past or Other Problems Problem Classification Problem Date Documented Da te Episodic/Chronic Abdominal pain (20 sources) Generalized abdominal pain; Translations: [Generalized abdominal pain] Onset: 08-01-2022 Episodic Acquired foot deformities (6 sources) Valgus deformity, not elsewhere classified, right ankle; Translations: [Varus deformity, not elsewhere classified, right ankle] Onset: 09-28-2022 Episodic Allergic reactions (20 sources) Atopic dermatitis; Translations: [Atopic dermatitis, unspecified] Onset: 04-09-2020 Resolved: 09-07-2023 04-04-2023 Chronic Allergic reactions (1 source) Unspecified contact dermatitis, unspecified cause; Translations: [Contact dermatitis, unspecified contact dermatitis type, unspecified trigger L25.9] Onset: 08-19-2021 Resolved: 08-19-2021 Episodic Complication of device; implant or graft (20 sources) Pain due to internal prosthetic device; Translations: [Pain due to internal orthopedic prosthetic devices, implants and grafts, initial encounter] Onset: 11-09-2023 11-09-2023 Episodic Complications of surgical procedures or medical care (4 sources) Infection following a procedure, other surgical site, initial encounter; Translations: [INFECT FOL PROC OTH SURG SITE INIT] Onset: 04-17-2022 Episodic Diabetes mellitus without complication (20 sources) Hyperglycemia; Translations: [Hyperglycemia, unspecified] Onset: 04-06-2023 Resolved: 10-03-2023 10-03-2023 Episodic Disorders of lipid metabolism (20 sources) Pure hypercholesterolemia , unspecified; Translations: [Hyperlipidemia] Onset: 03-08-2023 Resolved: 09-07-2023 04-04-2023 Chronic Genitourinary symptoms and ill-defined conditions (20 sources) Incomplete emptying of bladder; Translations: [Retention of urine, unspecified] Onset: 08-01-2022 07-31-2023 Episodic Headache; including migraine (20 sources) Headache; Translations: [Headache] Onset: 08-01-2022 10-24-2023 Episodic Immunizations and screening for infectious disease (1 source) Contact with and (suspected) exposure to other viral communicable diseases; Translations: [Contact with and (suspected) exposure to other viral communicable diseases Z20.828] Onset: 08-13-2021 Resolved: 08-13-2021 Episodic Malaise and fatigue (20 sources) Fatigue; Translations: [Other malaise and fatigue] Onset: 04-01-2021 Episodic Mood disorders (20 sources) Mood swings; Translations: [Emotional lability] Onset: 04-04-2023 04-04-2023 Episodic Mood disorders (8 sources) Mood disorders Onset: 10-23-2023 10-23-2023 Nausea and vomiting (20 sources) Nausea and vomiting; Translations: [Nausea with vomiting, unspecified] Onset: 05-10-2022 Resolved: 05-10-2022 Episodic Nutritional deficiencies (20 sources) Cobalamin deficiency; Translations: [Deficiency of other specified B group vitamins] Onset: 10-23-2022 04-06-2023 Episodic Other aftercare (20 sources) Surgical follow-up; Translations: [Encounter for follow-up examination after completed treatment for conditions other than malignant neoplasm] Onset: 01-18-2022 Episodic Other bone disease and musculoskeletal deformities (2 sources) Exostosis; Translations: [Other specified disorders of bone, ankle and foot] 06-27-2024 Episodic Other connective tissue disease (20 sources) [...] Onset: 11-03-2022 Episodic Other connective tissue disease (2 sources) Peroneal tendinitis of right lower limb; Translations: [Peroneal tendinitis, right leg] 06-27-2024 Episodic Other connective tissue disease (2 sources) Pain in both feet; Translations: [Pain in right foot] 06-27-2024 Episodic Other connective tissue disease (2 sources) Mass of soft tissue; Translations: [Other specified soft tissue disorders] 07-11-2024 Episodic Other disorders of stomach and duodenum (20 sources) Gastroparesis syndrome; Translations: [Gastroparesis] Onset: 11-24-2021 10-08-2020 Episodic Other disorders of stomach and duodenum (4 sources) Gastroparesis; Translations: [Gastroparesis] Onset: 10-08-2020 Episodic Other fractures (20 sources) History of stress fracture; Translations: [Personal history of (healed) stress fracture] Onset: 07-06-2023 07-06-2023 Episodic Other gastrointestinal disorders (20 sources) Colostomy present; Translations: [Colostomy status] Onset: 04-04-2023 Resolved: 09-07-2023 09-07-2023 Chronic Other gastrointestinal disorders (20 sources) Dysphagia; Translations: [Dysphagia, unspecified] Onset: 04-04-2023 Resolved: 01-23-2024 01-23-2024 Episodic Other gastrointestinal disorders (20 sources) Burping; Translations: [Eructation] Onset: 11-30-2023 11-30-2023 Episodic Other infections; including parasitic (20 sources) Personal history of other infectious and parasitic diseases; Translations: [History of 2019 novel coronavirus disease (COVID-19)] Onset: 08-01-2022 Resolved: 09-07-2023 10-15-2021 Episodic Other lower respiratory disease (20 sources) Cough; Translations: [Cough] Onset: 10-02-2023 10-24-2023 Episodic Other lower respiratory disease (20 sources) Wheezing; Translations: [Wheezing] Onset: 10-02-2023 10-24-2023 Episodic Other nervous system disorders (20 sources) Incoordination; Translations: [Unspecified lack of coordination] Onset: 01-18-2022 Resolved: 07-05-2023 Episodic Other non-epithelial cancer of skin (20 sources) Basal cell carcinoma of chest wall; Translations: [Basal cell carcinoma of skin of other part of trunk] Onset: 04-04-2023 Resolved: 09-07-2023 04-04-2023 Episodic Other non-traumatic joint disorders (1 source) [...] nutritional; endocrine; and metabolic disorders (20 sources) Weight loss; Translations: [Abnormal weight loss] Onset: 09-08-2023 09-08-2023 Episodic Other nutritional; endocrine; and metabolic disorders (2 sources) Abnormal weight loss; Translations: [Abnormal weight loss] Onset: 04-12-2024 Episodic Other screening for suspected conditions (not mental disorders or infectious disease) (20 sources) Mammography abnormal; Translations: [Other abnormal and inconclusive findings on diagnostic imaging of breast] Onset: 04-04-2023 04-04-2023 Episodic Other upper respiratory disease (20 sources) Nasal congestion; Translations: [Nasal congestion] Onset: 01-11-2021 10-24-2023 Episodic Residual codes; unclassified (20 sources) History [...] Onset: 04-12-2024 04-12-2024 Episodic Residual codes; unclassified (20 sources) Insomnia; Translations: [Insomnia, unspecified] Onset: 04-04-2023 04-04-2023 Episodic Residual codes; unclassified (20 sources) Intolerant of heat; Translations: [Other general symptoms and signs] Onset: 09-08-2023 09-08-2023 Episodic Residual codes; unclassified (1 source) Early satiety; Translations: [Early satiety] Onset: 04-12-2024 Episodic Skin and subcutaneous tissue infections (1 source) Cellulitis of abdominal wall; Translations: [CELLULITIS OF ABDOMINAL WALL] Onset: 04-19-2022 Episodic Spondylosis; intervertebral disc disorders; other back problems (20 sources) Low back pain; Translations: [Cervicalgia] Onset: 07-28-2021 Resolved: 07-05-2023 Episodic Sprains and strains (2 sources) Strain of muscle(s) and tendon(s) of peroneal muscle group at lower leg level, right leg, subsequent encounter; Translations: [Strain of muscle(s) and tendon(s) of peroneal muscle group at lower leg level, right leg, initial encounter] Onset: 11-03-2022 Episodic Unclassified (1 source) Other [...] Name Value Interpretation Reference Range Facility 36 01-24-2025 36 Attempted to call patient to reschedule canceled [facility] follow up appointment. [facility] XR FOOT RT MIN 3Von 01-03-20 [place] [id number] XRay Report Signed Patient: MARY LEAL MR#: [id number] : 1970 Acct:[id number] Age/Sex: 54 / F ADM Date: 01/03/25 Loc: [facility] Attending Dr: Sade Felix D.P.M. Ordering Physician: Sade Felix D.P.M. Date of Service: 01/03/25 Procedure(s): XR foot RT min 3V Accession Number(s): [id number] cc: Sade Felix D.P.M.; Pricila GÓMEZ [place] [id number] Patient Name: MARY LEAL MRN: [id number] date: 1970 Sex: F Assigned Patient Location: Current Patient Location: Accession/Order Number: [id number] Exam Date: 01/03/2025 12:17 Report Date: 01/03/2025 12:21 At the request of: SADE FELIX DPM Procedure: XR foot RT min 3V RIGHT FOOT - 4 views CLINICAL DATA: Right foot pain. Previous surgery. COMPARISON: 10/01/2024 AP, lateral, oblique and tangential calcaneal views were obtained. There is redemonstration of multiple screws involving the talus, calcaneus and navicular. There is prior calcaneal osteotomy. Hardware is also again seen head of the first metatarsal and at the first cuneiform. There is no interval change. There is no developing fracture or dislocation. There are no significant soft tissue abnormalities. XR/XR foot RT min 3V IMPRESSION: STABLE APPEARANCE OF THE FOOT Impression dictated by: Makenna Pathak M.D.01/03/2025 12:21 PM Dictation Location: [place] [address] Electronically authenticated by: [id number] Y Date: 01/03/2025 12:21 Dictated By: Makenna Pathak M.D. Signed By: 01/03/25 1223 DD/ 1221 TD/TT: Gi Asst: [facility] Radiology, Radiologist, MD - 01/03/2025 [place] [address] XRay Report Signed Patient: MARY ELAL MR#: [id number] : 1970 Acct:[id number] Age/Sex: 54 / F ADM Date: 01/03/25 Loc: [facility] Attending Dr: Sade Felix D.P.M. Ordering Physician: Sade Felix D.P.M. Date of Service: 01/03/25 Procedure(s): XR foot RT min 3V Accession Number(s): [id number] cc: Sade Felix D.P.M.; Pricila GÓMEZ The [address] [address] Patient Name: MARY LEAL MRN: [facility]:[id number] date: 1970 Sex: F Assigned Patient Location: Current Patient Location: Accession/Order Number: [id number] Exam Date: 01/03/2025 12:17 Report Date: 01/03/2025 12:21 At the request of: SADE FELIX DPDirk Procedure: XR foot RT min 3V RIGHT FOOT - 4 views CLINICAL DATA: Right foot pain. Previous surgery. COMPARISON: 10/01/2024 AP, lateral, oblique and tangential calcaneal views were obtained. There is redemonstration of multiple screws involving the talus, calcaneus and navicular. There is prior calcaneal osteotomy. Hardware is also again seen head of the first metatarsal and at the first cuneiform. There is no interval change. There is no developing fracture or dislocation. There are no significant soft tissue abnormalities. XR/XR foot RT min 3V IMPRESSION: STABLE APPEARANCE OF THE FOOT Impression dictated by: Makenna Pathak M.D.01/03/2025 12:21 PM Dictation Location: [place] [address] Electronically authenticated by: [id number] Y Date: 01/03/2025 12:21 Dictated By: Makenna Pathak M.D. Signed By: 01/03/25 1223 DD/ 1221 TD/TT: Gi Asst: [facility] Radiology Study observation (narrative) [facility] XR FOOT RT MIN 3VOrdered By: Radiologist Radiology on 01-03-2025 [facility] [employer] Work Phone: [place] Antinuclear Antibodieson 12-16-2024 Antinuclear Abs, IFA Negative Normal . [facility] Comment on above: Result Comment: Nega tive <1:80 Borderline 1:80 Positive >1:80 ICAP nomenclature: AC-0 For more information about Hep-2 cell patterns use ANApatterns.org, the official website for the International Consensus on Antinuclear Antibody ([place]) Patterns (ICAP). Performed at: [facility] [employer] [id number] Vertical Contour Band Saw Operator: Erick Neville PhD, Phone: [phone] Performed By: #### C BC #### [address] Alanine aminotransferase [En zymatic activity/volume] in Serum or PlasmaOrdered By: Everett Valdez on 12-16-2024 ALT [Catalytic activity/Vol] Alanine aminotransferase [Enzymatic activity/volume] in Serum or Plasma [facility] Albumin [Mass/volume] in Ser um or Plasma by Bromocresol green (BCG) dye binding methoOrdered By: Everett Valdez on 12-16-2024 Albumin BCG dye [Mass/Vol] Albumin [Mass/volume] in Serum or Plasma by Bromocresol green (BCG) dye binding metho 3.5-5.7 [facility] Aldolaseon 12-16-2024 Aldolase 13.5 U/L High 3.3-10.3 [facility] Comment on above: Result Comment: Perf ormed at: [address] [id number] Vertical Contour Band Saw Operator: Erick Neville PhD, Phone: [phone] PERFORMED BY: [place] [address] PATHOLOGIST POURER OFF PAZ RUTHERFORD M.D. Performed By: #### C BC #### [address] Alkaline phosphatase [Enzyma tic activity/volume] in Serum or PlasmaOrdered By: Everett Valdez on 12-16-2024 ALP [Catalytic activity/Vol] Alkaline phosphatase [Enzymatic activity/volume] in Serum or Plasma 34-104 [facility] Antithyroglobulin Abon 12-16 Antithyroglobulin Ab <1.0 Normal 0.0-0.9 [facility] Comment on above: Result Comment: Thyr oglobulin Antibody measured by Jorje Agnieszka Methodology It should be noted that the presence of thyroglobulin antibodies may not be pathogenic nor diagnostic, especially at very low levels. The assay grit removal operator has found that four percent of individuals without evidence of thyroid disease or autoimmunity will have positive TgAb levels up to 4 IU/mL. Performed at: [address] [id number] Vertical Contour Band Saw Operator: Erick Neville PhD, Phone: [phone] Performed By: #### B MP #### [address] Appearance of UrineOrdered B y: Everett Valdez on 12-16-2024 Appearance (U) Urine appearance Clear [facility] Aspartate aminotransferase [ Enzymatic activity/volume] in Serum or PlasmaOrdered By: Everett Valedz on 12-16-2024 AST [Catalytic activity/Vol] Aspartate aminotransferase [Enzymatic activity/volume] in Serum or Plasma 13-39 [facility] Bacteria [Presence] in Urine by AutomatedOrdered By: Everett Valdez on 12-16-2024 Bacteria Auto Ql (U) Bacteria [Presence] in Urine by Automated None Seen [facility] Basophils Auto (Bld) [#/Vol] Ordered By: Everett Valdez on 12-16-2024 Basophils (Bld) [#/Vol] Automated basophil count 0.0-0.2 [facility] Basophils/100 WBC Auto (Bld) Ordered By: Everett Valdez on 12-16-2024 Basophils/100 WBC (Bld) Automated basophil % . [facility] Bilirubin Test strip Ql (U)O rdered By: Everett Valdez on 12-16-2024 Bilirubin Ql (U) Bilirubin.total [Presence] in Urine by Test strip Negative [facility] Bilirubin.total [Mass/volume ] in Serum or PlasmaOrdered By: Everett Valdez on 12-16-2024 Bilirubin [Mass/Vol] Bilirubin.total [Mass/volume] in Serum or Plasma 0.3-1.0 [facility] C reactive protein [Mass/vol ume] in Serum or PlasmaOrdered By: Everett Valdez on 12-16-2024 CRP [Mass/Vol] C reactive protein [Mass/volume] in Serum or Plasma 0.0-0.5 [facility] C-Reactive Proteinon 025 CRP [Mass/Vol] mg/L Normal 0.0-0.5 [facility] Comment on above: Performed By: #### R OH W RFX, ALDOLASE, GUZMAN,URINE, UPE RAND #### [facility] , #### ADDONUAPLUS, CBC, CRP, CMP, T4F, ESR, TSH3, CK #### [facility] [address] Calcium [Mass/volume] in Ser um or PlasmaOrdered By: Everett Valdez on 12-16-2024 Calcium [Mass/Vol] Calcium [Mass/volume ] in Serum or Plasma 8.6-10.3 [facility] Carbon dioxide, total [Moles /volume] in Serum or PlasmaOrdered By: Everett Valdez on 12-16-2024 CO2 [Moles/Vol] Carbon dioxide, tota l [Moles/volume] in Serum or Plasma 21.0-31.0 [facility] Chloride [Moles/volume] in S jay or PlasmaOrdered By: Everett Valdez on 12-16-2024 Chloride [Moles/Vol] Chloride [Moles/volume] in Serum or Plasma 98-107 [facility] Chromatin Antibodyon 025 Chromatin Antibody <0.2 Normal 0.0-0.9 [facility] Comment on above: Result Comment: Perf ormed at: CB - [facility] [address] [id number] Vertical Contour Band Saw Operator: Erick Neville PhD, Phone: [phone] PERFORMED BY: [place] [address] PATHOLOGIST POURER OFF PAZ RUTHERFORD M.D. Performed By: #### B MP #### [place] [id number] [facility] Coagulation Profileon 2024 aPTT Coag (Bld) [Time] 28.7 s Normal 25.1-36.5 [facility] Comment on above: Result Comment: A he matocrit value greater than 55% may lead to inaccurate results in coagulation testing. Patients having hematocrit values >55% require a special collection tube for coagulation studies. Please contact the laboratory at [phone] for redraw instructions. PERFORMED BY: [place] [address] PATHOLOGIST POURER OFF PAZ RUTHERFORD M.D. Performed By: #### B MP #### [place] [id number] [facility] INR Coag (PPP) [Relative time] 0.9 {INR} Normal [facility] Comment on above: Result Comment: INR Therapeutic [...] valves: 3 - 4.5 Performed By: #### B MP #### [place] [id number] [facility] PT Coag (PPP) [Time] 10.5 s Normal 9.0-12.9 [facility] Comment on above: Result Comment: A he matocrit value greater than 55% may lead to inaccurate results in coagulation testing. Patients having hematocrit values >55% require a special collection tube for coagulation studies. Please contact the laboratory at [phone] for redraw instructions. Performed By: #### B MP #### [address] Color Auto (U)Ordered By: Dori restrepoaureliano Courtney on 12-16-2024 Color (U) Color of Urine by Auto Yellow [facility] Complement C3on 12-16-2024 Complement C3 133 mg/dL Normal 82-167 [facility] Comment on above: Result Comment: Perf ormed at: - [facility] [id number] Vertical Contour Band Saw Operator: Erick Neville PhD, Phone: [phone] Performed By: #### C BC #### [address] Complement C4on 12-16-2024 Complement C4 26 mg/dL Normal 12-38 [facility] Comment on above: Performed By: #### B MP #### [address] Complement Total (CH50)on Complement Total (CH50) >60 Normal >41 [facility] Comment on above: Result Comment: Age Male Female 1 - 30 days Not Estab. Not Estab. 31 days - 6 months >32 >20 7 months - 17 years >39 >39 >17 years >41 >41 NOTE: The adult ( >17 years ) reference interval range is used to flag abnormals on this report. If the patient is 17 years old or younger, use the table above to determine out of range values. Performed at: [facility] [id number] Vertical Contour Band Saw Operator: Erick Neville PhD, Phone: [phone] PERFORMED BY: [place] [address] PATHOLOGIST POURER OFF PAZ RUTHERFORD M.D. Performed By: #### C BC #### [address] Complete Blood Count Auto Di ffon 12-16-2024 Basophils (Bld) [#/Vol] 0.0 10*3/uL Normal 0.0-0.2 [facility] Comment on above: Performed By: #### R OH W RFX, ALDOLASE, GUZMAN,URINE, UPE RAND #### [facility] , #### ADDONUAPLUS, CBC, CRP, CMP, T4F, ESR, TSH3, CK #### [address] Basophils/100 WBC (Bld) 0.7 % Normal . [facility] Comment on above: Performed By: #### R OH W RFX, ALDOLASE, GUZMAN,URINE, UPE RAND #### [facility] , #### ADDONUAPLUS, CBC, CRP, CMP, T4F, ESR, TSH3, CK #### [address] Eosinophils (Bld) [#/Vol] 0.1 10*3/uL Normal 0.0-0.45 [facility] Comment on above: Performed By: #### R OH W RFX, ALDOLASE, GUZMAN,URINE, UPE RAND #### [facility] , #### ADDONUAPLUS, CBC, CRP, CMP, T4F, ESR, TSH3, CK #### [address] Eosinophils/100 WBC (Bld) 2.3 % Normal . [facility] Comment on above: Performed By: #### R OH W RFX, ALDOLASE, GUZMAN,URINE, UPE RAND #### [facility] , #### ADDONUAPLUS, CBC, CRP, CMP, T4F, ESR, TSH3, CK #### [address] Erythrocyte distribution width (RBC) [Ratio] 12.8 % Normal 11.9-15.3 [facility] Comment on above: Performed By: #### R OH W RFX, ALDOLASE, GUZMAN,URINE, UPE RAND #### [facility] , #### ADDONUAPLUS, CBC, CRP, CMP, T4F, ESR, TSH3, CK #### [address] Hematocrit (Bld) [Volume fraction] 39.6 % Normal 34.0-46.4 [facility] Comment on above: Performed By: #### R OH W RFX, ALDOLASE, GUZMAN,URINE, UPE RAND #### [facility] , #### ADDONUAPLUS, CBC, CRP, CMP, T4F, ESR, TSH3, CK #### [address] Hemoglobin (Bld) [Mass/Vol] 13.3 g/dL Normal 11.8-15.4 [facility] Comment on above: Performed By: #### R OH W RFX, ALDOLASE, GUZMAN,URINE, UPE RAND #### [facility] , #### ADDONUAPLUS, CBC, CRP, CMP, T4F, ESR, TSH3, CK #### [address] Lymphocytes (Bld) [#/Vol] 1.8 10*3/uL Normal 1.00-4.8 [facility] Comment on above: Performed By: #### R OH W RFX, ALDOLASE, GUZMAN,URINE, UPE RAND #### [facility] , #### ADDONUAPLUS, CBC, CRP, CMP, T4F, ESR, TSH3, CK #### [address] Lymphocytes/100 WBC (Bld) 32.0 % Normal . [facility] Comment on above: Performed By: #### R OH W RFX, ALDOLASE, GUZMAN,URINE, UPE RAND #### [facility] , #### ADDONUAPLUS, CBC, CRP, CMP, T4F, ESR, TSH3, CK #### [address] MCH (RBC) [Entitic mass] 28.4 pg Normal 24.7-34.3 [facility] Comment on above: Performed By: #### R OH W RFX, ALDOLASE, GUZMAN,URINE, UPE RAND #### [facility] , #### ADDONUAPLUS, CBC, CRP, CMP, T4F, ESR, TSH3, CK #### [address] MCV (RBC) [Entitic vol] 84.6 fL Normal 80-100 [facility] Comment on above: Performed By: #### R OH W RFX, ALDOLASE, GUZMAN,URINE, UPE RAND #### [facility] , #### ADDONUAPLUS, CBC, CRP, CMP, T4F, ESR, TSH3, CK #### [address] Mean Corpuscular HGB Conc 33.6 g/dL Normal 32.0-35.0 [facility] Comment on above: Performed By: #### R OH W RFX, ALDOLASE, GUZMAN,URINE, UPE RAND #### [facility] , #### ADDONUAPLUS, CBC, CRP, CMP, T4F, ESR, TSH3, CK #### [address] Monocytes (Bld) [#/Vol] 0.3 10*3/uL Normal 0.0-0.8 [facility] Comment on above: Performed By: #### R OH W RFX, ALDOLASE, GUZMAN,URINE, UPE RAND #### [facility] , #### ADDONUAPLUS, CBC, CRP, CMP, T4F, ESR, TSH3, CK #### [address] Monocytes/100 WBC (Bld) 5.1 % Normal . [facility] Comment on above: Performed By: #### R OH W RFX, ALDOLASE, GUZMAN,URINE, UPE RAND #### [facility] , #### ADDONUAPLUS, CBC, CRP, CMP, T4F, ESR, TSH3, CK #### [address] Neutrophils (Bld) [#/Vol] 3.3 10*3/uL Normal 1.8-7.7 [facility] Comment on above: Performed By: #### R OH W RFX, ALDOLASE, GUZMAN,URINE, UPE RAND #### [facility] , #### ADDONUAPLUS, CBC, CRP, CMP, T4F, ESR, TSH3, CK #### [address] Neutrophils/100 WBC (Bld) 59.9 % Normal . [facility] Comment on above: Performed By: #### R OH W RFX, ALDOLASE, GUZMAN,URINE, UPE RAND #### [facility] , #### ADDONUAPLUS, CBC, CRP, CMP, T4F, ESR, TSH3, CK #### [address] NRBC% 0.1 /100{WBC} Normal 0-0.5 The [facility] Comment on above: Performed By: #### R OH W RFX, ALDOLASE, GUZMAN,URINE, UPE RAND #### [facility] , #### ADDONUAPLUS, CBC, CRP, CMP, T4F, ESR, TSH3, CK #### [address] Platelet mean volume (Bld) [Entitic vol] 7.5 fL Normal 6.3-10.7 The [facility] Comment on above: Performed By: #### R OH W RFX, ALDOLASE, GUZMAN,URINE, UPE RAND #### [facility] , #### ADDONUAPLUS, CBC, CRP, CMP, T4F, ESR, TSH3, CK #### [address] Platelets (Bld) [#/Vol] 347 10*3/uL Normal 150-450 [facility] Comment on above: Performed By: #### R OH W RFX, ALDOLASE, GUZMAN,URINE, UPE RAND #### [facility] , #### ADDONUAPLUS, CBC, CRP, CMP, T4F, ESR, TSH3, CK #### [facility] [address] RBC (Bld) [#/Vol] 4.68 10*6/uL Normal 3.60-5.00 The [facility] Comment on above: Performed By: #### R OH W RFX, ALDOLASE, GUZMAN,URINE, UPE RAND #### [facility] , #### ADDONUAPLUS, CBC, CRP, CMP, T4F, ESR, TSH3, CK #### [address] WBC (Bld) [#/Vol] 5.6 10*3/uL Normal 3.8-11.6 The [facility] Comment on above: Performed By: #### R OH W RFX, ALDOLASE, GUZMAN,URINE, UPE RAND #### [facility] , #### ADDONUAPLUS, CBC, CRP, CMP, T4F, ESR, TSH3, CK #### [address] Comprehensive Metabolic Pane boyd 12-16-2024 Albumin [Mass/Vol] 4.1 g/dL Normal 3.5-5.7 The [facility] Comment on above: Performed By: #### R OH W RFX, ALDOLASE, GUZMAN,URINE, UPE RAND #### [facility] , #### ADDONUAPLUS, CBC, CRP, CMP, T4F, ESR, TSH3, CK #### [address] Albumin/Globulin [Mass ratio] 1.9 {ratio} Normal [facility] Comment on above: Performed By: #### R OH W RFX, ALDOLASE, GUZMAN,URINE, UPE RAND #### [facility] , #### ADDONUAPLUS, CBC, CRP, CMP, T4F, ESR, TSH3, CK #### [address] ALP [Catalytic activity/Vol] 84 U/L Normal 34-104 [facility] Comment on above: Performed By: #### R OH W RFX, ALDOLASE, GUZMAN,URINE, UPE RAND #### [facility] , #### ADDONUAPLUS, CBC, CRP, CMP, T4F, ESR, TSH3, CK #### [address] ALT [Catalytic activity/Vol] 31 U/L Normal 7-52 [facility] Comment on above: Performed By: #### R OH W RFX, ALDOLASE, GUZMAN,URINE, UPE RAND #### [facility] , #### ADDONUAPLUS, CBC, CRP, CMP, T4F, ESR, TSH3, CK #### [address] Anion gap [Moles/Vol] 8.2 mmol/L Normal 6.0-15.0 [facility] Comment on above: Performed By: #### R OH W RFX, ALDOLASE, GUZMAN,URINE, UPE RAND #### [facility] , #### ADDONUAPLUS, CBC, CRP, CMP, T4F, ESR, TSH3, CK #### [address] AST [Catalytic activity/Vol] 31 U/L Normal 13-39 [facility] Comment on above: Performed By: #### R OH W RFX, ALDOLASE, GUZMAN,URINE, UPE RAND #### [facility] , #### ADDONUAPLUS, CBC, CRP, CMP, T4F, ESR, TSH3, CK #### [address] [place] [address] [place] Bilirubin [Mass/Vol] 0.3 mg/dL Normal 0.3-1.0 [facility] Comment on above: Performed By: #### R OH W RFX, ALDOLASE, GUZMAN,URINE, UPE RAND #### [facility] , #### ADDONUAPLUS, CBC, CRP, CMP, T4F, ESR, TSH3, CK #### [address] Calcium [Mass/Vol] 9.3 mg/dL Normal 8.6-10.3 The [facility] Comment on above: Performed By: #### R OH W RFX, ALDOLASE, GUZMAN,URINE, UPE RAND #### [facility] , #### ADDONUAPLUS, CBC, CRP, CMP, T4F, ESR, TSH3, CK #### [address] Chloride [Moles/Vol] 107 mmol/L Normal 98-107 [facility] Comment on above: Performed By: #### R OH W RFX, ALDOLASE, GUZMAN,URINE, UPE RAND #### [facility] , #### ADDONUAPLUS, CBC, CRP, CMP, T4F, ESR, TSH3, CK #### [address] CO2 [Moles/Vol] 30.0 mmol/L Normal 21.0-31.0 The [facility] Comment on above: Performed By: #### R OH W RFX, ALDOLASE, GUZMAN,URINE, UPE RAND #### [facility] , #### ADDONUAPLUS, CBC, CRP, CMP, T4F, ESR, TSH3, CK #### [address] Creatinine [Mass/Vol] 0.70 mg/dL Normal 0.60-1.20 [facility] Comment on above: Performed By: #### R OH W RFX, ALDOLASE, GUZMAN,URINE, UPE RAND #### [facility] , #### ADDONUAPLUS, CBC, CRP, CMP, T4F, ESR, TSH3, CK #### [address] GFR/1.73 sq M.predicted MDRD (S/P/Bld) [Vol rate/Area] mL/min/{1.73_m2} Normal [facility] Comment on above: Performed By: #### R OH W RFX, ALDOLASE, GUZMAN,URINE, UPE RAND #### [facility] , #### ADDONUAPLUS, CBC, CRP, CMP, T4F, ESR, TSH3, CK #### [address] Globulin (S) [Mass/Vol] 2.2 g/dL Normal [facility] Comment on above: Performed By: #### R OH W RFX, ALDOLASE, GUZMAN,URINE, UPE RAND #### [facility] , #### ADDONUAPLUS, CBC, CRP, CMP, T4F, ESR, TSH3, CK #### [address] Glucose [Mass/Vol] 85 mg/dL Normal 70-100 [facility] Comment on above: Result Comment: [facility] [place] Glucose Reference Range is dependent on time and content of last meal. Glucose of more than 200 mg/dL in a nonstressed, ambulatory subject supports the diagnosis of Diabetes Mellitus. ADA recommended reference range Performed By: #### R OH W RFX, ALDOLASE, GUZMAN,URINE, UPE RAND #### [facility] , #### ADDONUAPLUS, CBC, CRP, CMP, T4F, ESR, TSH3, CK #### [address] Potassium [Moles/Vol] 4.2 mmol/L Normal 3.5-5.1 [facility] Comment on above: Performed By: #### R OH W RFX, ALDOLASE, GUZMAN,URINE, UPE RAND #### [facility] , #### ADDONUAPLUS, CBC, CRP, CMP, T4F, ESR, TSH3, CK #### [address] Protein [Mass/Vol] 6.3 g/dL Low 6.4-8.9 [facility] Comment on above: Performed By: #### R OH W RFX, ALDOLASE, GUZMAN,URINE, UPE RAND #### [facility] , #### ADDONUAPLUS, CBC, CRP, CMP, T4F, ESR, TSH3, CK #### [address] Sodium [Moles/Vol] 141 mmol/L Normal 136-145 [facility] Comment on above: Performed By: #### R OH W RFX, ALDOLASE, GUZMAN,URINE, UPE RAND #### [facility] , #### ADDONUAPLUS, CBC, CRP, CMP, T4F, ESR, TSH3, CK #### [address] Urea nitrogen [Mass/Vol] 11 mg/dL Normal 7-25 [facility] Comment on above: Performed By: #### R OH W RFX, ALDOLASE, GUZMAN,URINE, UPE RAND #### [facility] , #### ADDONUAPLUS, CBC, CRP, CMP, T4F, ESR, TSH3, CK #### [address] Creatine Kinaseon 12-16-2024 CK [Catalytic activity/Vol] 487 U/L High 30-223 [facility] Comment on above: Result Comment: PERF ORMED BY: [place] [address] PATHOLOGIST POURER OFF PAZ RUTHERFORD M.D. Performed By: #### R OH W RFX, ALDOLASE, GUZMAN,URINE, UPE RAND #### [facility] , #### ADDONUAPLUS, CBC, CRP, CMP, T4F, ESR, TSH3, CK #### [facility] [address] Creatine kinase [Enzymatic a ctivity/volume] in Serum or PlasmaOrdered By: Everett Valdez on 12-16-2024 CK [Catalytic activity/Vol] Creatine kinase [Enzymatic activity/volume] in Serum or Plasma High 30-223 [facility] Creatinine [Mass/volume] in Serum or PlasmaOrdered By: Everett Valdez on 12-16-2024 Creatinine [Mass/Vol] Creatinine [Mass/volume] in Serum or Plasma 0.60-1.20 [facility] Dipstick and Microscopicon 0 12-16-2024 Appearance (U) Clear Normal Clear [facility] Comment on above: Order Comment: Name Collection Type:: Clean-Voided Midstream Performed By: #### R OH W RFX, ALDOLASE, GUZMAN,URINE, UPE RAND #### [facility] , #### ADDONUAPLUS, CBC, CRP, CMP, T4F, ESR, TSH3, CK #### [facility] [address] Bacteria,Urine Rare Normal None Seen [facility] Comment on above: Order Comment: Name Collection Type:: Clean-Voided Midstream Performed By: #### R OH W RFX, ALDOLASE, GUZMAN,URINE, UPE RAND #### [facility] , #### ADDONUAPLUS, CBC, CRP, CMP, T4F, ESR, TSH3, CK #### [facility] [address] [place] [address] [place] Bilirubin,Urine Negative Normal Negative [facility] Comment on above: Order Comment: Name Collection Type:: Clean-Voided Midstream Performed By: #### R OH W RFX, ALDOLASE, GUZMAN,URINE, UPE RAND #### [facility] , #### ADDONUAPLUS, CBC, CRP, CMP, T4F, ESR, TSH3, CK #### [address] Color (U) Yellow Normal Yellow [facility] Comment on above: Order Comment: Name Collection Type:: Clean-Voided Midstream Performed By: #### R OH W RFX, ALDOLASE, GUZMAN,URINE, UPE RAND #### [facility] , #### ADDONUAPLUS, CBC, CRP, CMP, T4F, ESR, TSH3, CK #### [address] Glucose Ql (U) Normal Normal Normal [facility] Comment on above: Order Comment: Name Collection Type:: Clean-Voided Midstream Performed By: #### R OH W RFX, ALDOLASE, GUZMAN,URINE, UPE RAND #### [facility] , #### ADDONUAPLUS, CBC, CRP, CMP, T4F, ESR, TSH3, CK #### [address] Hyaline Casts,Urine 0-8 Normal 0-8 [facility] Comment on above: Order Comment: Name Collection Type:: Clean-Voided Midstream Performed By: #### R OH W RFX, ALDOLASE, GUZMAN,URINE, UPE RAND #### [facility] , #### ADDONUAPLUS, CBC, CRP, CMP, T4F, ESR, TSH3, CK #### [address] Ketones Ql (U) Negative Normal Negative [facility] Comment on above: Order Comment: Name Collection Type:: Clean-Voided Midstream Performed By: #### R OH W RFX, ALDOLASE, GUZMAN,URINE, UPE RAND #### [facility] , #### ADDONUAPLUS, CBC, CRP, CMP, T4F, ESR, TSH3, CK #### [address] Leukocyte esterase Test strip Ql (U) Negative Normal Negative [facility] Comment on above: Order Comment: Name Collection Type:: Clean-Voided Midstream Performed By: #### R OH W RFX, ALDOLASE, GUZMAN,URINE, UPE RAND #### [facility] , #### ADDONUAPLUS, CBC, CRP, CMP, T4F, ESR, TSH3, CK #### [address] Mucus,Urine 1+ Critically abnormal [facility] Comment on above: Order Comment: Name Collection Type:: Clean-Voided Midstream Result Comment: PERF ORMED BY: [place] [address] PATHOLOGIST POURER OFF PAZ RUTHERFORD M.D. Performed By: #### R OH W RFX, ALDOLASE, GUZMAN,URINE, UPE RAND #### [facility] , #### ADDONUAPLUS, CBC, CRP, CMP, T4F, ESR, TSH3, CK #### [address] Nitrite,Urine Negative Normal Negative [facility] Comment on above: Order Comment: Name Collection Type:: Clean-Voided Midstream Performed By: #### R OH W RFX, ALDOLASE, GUZMAN,URINE, UPE RAND #### [facility] , #### ADDONUAPLUS, CBC, CRP, CMP, T4F, ESR, TSH3, CK #### [address] Occult Blood,Urine Negative Normal Negative [facility] Comment on above: Order Comment: Name Collection Type:: Clean-Voided Midstream Performed By: #### R OH W RFX, ALDOLASE, GUZMAN,URINE, UPE RAND #### [facility] , #### ADDONUAPLUS, CBC, CRP, CMP, T4F, ESR, TSH3, CK #### [address] [address] [place] pH (U) 5.0 [pH] Normal 5.0-9.0 [facility] Comment on above: Order Comment: Name Collection Type:: Clean-Voided Midstream Performed By: #### R OH W RFX, ALDOLASE, GUZMAN,URINE, UPE RAND #### [facility] , #### ADDONUAPLUS, CBC, CRP, CMP, T4F, ESR, TSH3, CK #### [address] Protein,Urine Negative Normal Negative [facility] Comment on above: Order Comment: Name Collection Type:: Clean-Voided Midstream Performed By: #### R OH W RFX, ALDOLASE, GUZMAN,URINE, UPE RAND #### [facility] , #### ADDONUAPLUS, CBC, CRP, CMP, T4F, ESR, TSH3, CK #### [address] RBC,Urine 1-2 Normal 0-4 [facility] Comment on above: Order Comment: Name Collection Type:: Clean-Voided Midstream Performed By: #### R OH W RFX, ALDOLASE, GUZMAN,URINE, UPE RAND #### [facility] , #### ADDONUAPLUS, CBC, CRP, CMP, T4F, ESR, TSH3, CK #### [address] Specificy [place],Urine 1.024 Normal 1.001-1.030 [facility] Comment on above: Order Comment: Name Collection Type:: Clean-Voided Midstream Performed By: #### R OH W RFX, ALDOLASE, GUZMAN,URINE, UPE RAND #### [facility] , #### ADDONUAPLUS, CBC, CRP, CMP, T4F, ESR, TSH3, CK #### [address] Squamous Epithelial Cell,Urine 5-9 High 0-2 [facility] Comment on above: Order Comment: Name Collection Type:: Clean-Voided Midstream Performed By: #### R OH W RFX, ALDOLASE, GUZMAN,URINE, UPE RAND #### [facility] , #### ADDONUAPLUS, CBC, CRP, CMP, T4F, ESR, TSH3, CK #### [facility] [address] Urobilinogen,Urine Normal Normal Normal [facility] Comment on above: Order Comment: Name Collection Type:: Clean-Voided Midstream Performed By: #### R OH W RFX, ALDOLASE, GUZMAN,URINE, UPE RAND #### [facility] , #### ADDONUAPLUS, CBC, CRP, CMP, T4F, ESR, TSH3, CK #### [address] WBC,Urine 1-2 Normal 0-4 [facility] Comment on above: Order Comment: Name Collection Type:: Clean-Voided Midstream Performed By: #### R OH W RFX, ALDOLASE, GUZMAN,URINE, UPE RAND #### [facility] , #### ADDONUAPLUS, CBC, CRP, CMP, T4F, ESR, TSH3, CK #### [address] Eosinophils Auto (Bld) [#/Vo l]Ordered By: Everett Valdez on 12-16-2024 Eosinophils (Bld) [#/Vol] Automated eosinophil count 0.0-0.45 [facility] Eosinophils/100 WBC Auto (Bl d)Ordered By: Everett Valdez on 12-16-2024 Eosinophils/100 WBC (Bld) Automated eosinophil % . [facility] Epithelial cells.squamous [# /area] in Urine sediment by Automated countOrdered By: Everett Valdez on 12-16-2024 Epithelial cells.squamous Auto (Urine sed) [#/Area] Epithelial cells.squamous [#/area] in Urine sediment by Automated count High 0-2 [facility] Erythrocyte Sedimentation Ra lian 12-16-2024 ESR (Bld) [Velocity] 6 mm/h Normal 0-29 [facility] Comment on above: Result Comment: PERF ORMED BY: [place] [address] PATHOLOGIST POURER OFF PAZ RUTHERFORD M.D. Performed By: #### C BC #### [facility] [address] [place] [address] Erythrocyte distribution wid th Auto (RBC) [Ratio]Ordered By: Everett Valdez on 12-16-2024 Erythrocyte distribution width (RBC) [Ratio] Erythrocyte distribution width [Ratio] by Automated count 11.9-15.3 [facility] Erythrocyte sedimentation ra te by Photometric methodOrdered By: Everett Valdez on 12-16-2024 ESR Photometric method (Bld) [Velocity] Erythrocyte sedimentation rate by Photometric method 0-29 [facility] Erythrocytes [#/area] in Uri ne sediment by Automated countOrdered By: Everett Valdez on 12-16-2024 RBC Auto (Urine sed) [#/Area] Erythrocytes [#/area] in Urine sediment by Automated count 0-4 [facility] Free T4 (Free Thyroxine)on 0 12-16-2024 Free T4 [Mass/Vol] 0.77 ng/dL Normal 0.61-1.12 [facility] Comment on above: Performed By: #### R OH W RFX, ALDOLASE, GUZMAN,URINE, UPE RAND #### [facility] , #### ADDONUAPLUS, CBC, CRP, CMP, T4F, ESR, TSH3, CK #### [facility] [address] [place] [address] Globulin Calc (S) [Mass/Vol] Ordered By: Everett Valdez on 12-16-2024 Globulin (S) [Mass/Vol] Serum globulin measurement by calculation (mass/volume) [facility] Glucose [Mass/volume] in Ser um or PlasmaOrdered By: Everett Valdez on 12-16-2024 Glucose [Mass/Vol] Glucose [Mass/volume ] in Serum or Plasma 70-100 [facility] Comment on above: ADA recommended refe rence rangeRandom Glucose Reference Range is dependent on time and content of last meal. Glucose of more than 200 mg/dL in a nonstressed, ambulatory subject supports the diagnosis of Diabetes Mellitus. Glucose [Mass/volume] in Uri ne by Test stripOrdered By: Everett Valdez on 12-16-2024 Glucose Test strip (U) [Mass/Vol] Glucose [Mass/volume] in Urine by Test strip Normal [facility] Hematocrit Auto (Bld) [Volum e fraction]Ordered By: Everett Valdez on 12-16-2024 Hematocrit (Bld) [Volume fraction] Hematocrit [Volume Fraction] of Blood by Automated count 34.0-46.4 [facility] Hemoglobin Test strip Ql (U) Ordered By: Everett Valdez on 12-16-2024 Hemoglobin Ql (U) Hemoglobin [Presence ] in Urine by Test strip Negative [facility] Hemoglobin [Mass/volume] in BloodOrdered By: Everett Valdez on 12-16-2024 Hemoglobin (Bld) [Mass/Vol] Hemoglobin [Mass/volume] in Blood 11.8-15.4 [facility] Hyaline casts [#/area] in Ur ine sediment by Automated countOrdered By: Everett Valdez on 12-16-2024 Hyaline casts Auto (Urine sed) [#/Area] Hyaline casts [#/area] in Urine sediment by Automated count 0-8 [facility] INR in Platelet poor plasma by Coagulation assayOrdered By: Everett Valdez on 12-16-2024 INR Coag (PPP) [Relative time] INR in Platelet poor plasma by Coagulation assay [facility] Comment on above: INR Therapeutic Rang [...] with mechanical heart valves: 3 - 4.5 Immunofixation, (GUZMAN), Urine on 12-16-2024 Immunofixation, (GUZMAN), Urine Comment Normal . [facility] Comment on above: Result Comment: No m onoclonality detected. Performed at: [facility] [id number] Vertical Contour Band Saw Operator: Erick Neville PhD, Phone: [phone] Performed By: #### C BC #### [facility] [address] [place] [address] [place] Immunofixation,Serumon 12-16 Immunofixation, Serum Comment Normal . [facility] Comment on above: Result Comment: No m onoclonality detected. Performed By: #### C BC #### [facility] [address] [place] [address] [place] Immunoglobulin A, Serum 216 mg/dL Normal 87-352 [facility] Comment on above: Performed By: #### C BC #### [facility] [address] [place] [id number] [facility] Immunoglobulin G 802 mg/dL Normal [phone] [facility] Comment on above: Performed By: #### C BC #### [facility] [address] [place] [id number] [place] Immunoglobulin M, Serum 78 mg/dL Normal 26-217 [facility] Comment on above: Result Comment: Perf ormed at: - [facility] [id number] Vertical Contour Band Saw Operator: Erick Neville PhD, Phone: [phone] Performed By: #### C BC #### [address] Ketones Test strip Ql (U)Ord ered By: Everett Valdez on 12-16-2024 Ketones Ql (U) Ketones [Presence] i n Urine by Test strip Negative [facility] Leukocyte esterase [Presence ] in Urine by Test stripOrdered By: Everett Valdez on 12-16-2024 Leukocyte esterase Test strip Ql (U) Leukocyte esterase [Presence] in Urine by Test strip Negative [facility] Leukocytes [#/area] in Urine sediment by Automated countOrdered By: Everett Valdez on 12-16-2024 WBC Auto (Urine sed) [#/Area] Leukocytes [#/area] in Urine sediment by Automated count 0-4 [facility] Leukocytes [#/volume] correc herbert for nucleated erythrocytes in Blood by Automated counOrdered By: Everett Valdez on 12-16-2024 WBC corrected for nucl RBC Auto (Bld) [#/Vol] Leukocytes [#/volume] corrected for nucleated erythrocytes in Blood by Automated coun 3.8-11.6 [facility] Lupus Anticoagulant Compon 0 12-16-2024 Dilute Prothrombin Time (dPt) 30.8 Normal 0.0-47.6 [facility] Comment on above: Performed By: #### B MP #### [address] dPT Confirm Ratio 1.06 Normal 0.00-1.34 [facility] Comment on above: Performed By: #### B MP #### [address] DRVVT Lupus 37.0 Normal 0.0-47.0 [facility] Comment on above: Performed By: #### B MP #### [address] Interpretation Comment: Normal . [facility] Comment on above: Result Comment: No l upus anticoagulant was detected. Performed at: [address] [id number] Vertical Contour Band Saw Operator: Jim Gong MD, Phone: [phone] PERFORMED BY: [place] [address] PATHOLOGIST POURER OFF PAZ RUTHERFORD M.D. Performed By: #### B MP #### [address] PTT-LA 26.8 Normal 0.0-43.5 [facility] Comment on above: Performed By: #### B MP #### [address] Thrombin Time 19.0 Normal 0.0-23.0 [facility] Comment on above: Performed By: #### B MP #### [address] Lymphocytes Auto (Bld) [#/Vo l]Ordered By: Everett Valdez on 12-16-2024 Lymphocytes (Bld) [#/Vol] Lymphocytes [#/volume] in Blood by Automated count 1.00-4.8 [facility] Lymphocytes/100 WBC Auto (Bl d)Ordered By: Everett Valdez on 12-16-2024 Lymphocytes/100 WBC (Bld) Lymphocytes/100 leukocytes in Blood by Automated count . [facility] MCH Auto (RBC) [Entitic mass ]Ordered By: Everett Valdez on 12-16-2024 MCH (RBC) [Entitic mass] MCH [Entitic mass] by Automated count 24.7-34.3 [facility] MCHC Auto (RBC) [Mass/Vol]Or dered By: Everett Valdez on 12-16-2024 MCHC (RBC) [Mass/Vol] MCHC [Mass/volume] by Automated count 32.0-35.0 [facility] MCV Auto (RBC) [Entitic vol] Ordered By: Everett Valdez on 12-16-2024 MCV (RBC) [Entitic vol] MCV [Entitic volume] by Automated count 80-100 [facility] Monocytes Auto (Bld) [#/Vol] Ordered By: Everett Valdez on 12-16-2024 Monocytes (Bld) [#/Vol] Automated blood monocyte count 0.0-0.8 [facility] Monocytes/100 WBC Auto (Bld) Ordered By: Everett Valdez on 12-16-2024 Monocytes/100 WBC (Bld) Automated monocyte % . [facility] Mucus [Presence] in Urine by AutomatedOrdered By: Everett Valdez on 12-16-2024 Mucus Auto Ql (U) Mucus [Presence] in Urine by Automated Abnormal [facility] Neutrophils Auto (Bld) [#/Vo l]Ordered By: Everett Valdez on 12-16-2024 Neutrophils (Bld) [#/Vol] Neutrophils [#/volume] in Blood by Automated count 1.8-7.7 [facility] Neutrophils/100 WBC Auto (Bl d)Ordered By: Everett Valdez on 12-16-2024 Neutrophils/100 WBC (Bld) Automated neutrophil % . [facility] Nitrite Test strip Ql (U)Ord ered By: Everett Terryrow on 12-16-2024 Nitrite Ql (U) Nitrite [Presence] i n Urine by Test strip Negative [facility] No Panel InformationOrdered By: Everett Valdez on 12-16-2024 Estimated GFR (CKD-EPI) > 60.0 mL/Min [facility] Creatinine Clearance (Chem N/A [facility] Nucleated erythrocytes [Pres ence] in Blood by Automated countOrdered By: Everett Valdez on 12-16-2024 Nucleated RBC Auto Ql (Bld) Nucleated erythrocytes [Presence] in Blood by Automated count 0-0.5 [facility] Platelet mean volume Auto (B ld) [Entitic vol]Ordered By: Everett Valdez on 12-16-2024 Platelet mean volume (Bld) [Entitic vol] Platelet mean volume [Entitic volume] in Blood by Automated count 6.3-10.7 [facility] Platelets Auto (Bld) [#/Vol] Ordered By: Everett Valdez on 12-16-2024 Platelets (Bld) [#/Vol] Platelets [#/volume] in Blood by Automated count 150-450 [facility] Potassium [Moles/volume] in Serum or PlasmaOrdered By: Everett Valdez on 12-16-2024 Potassium [Moles/Vol] Potassium [Moles/volume] in Serum or Plasma 3.5-5.1 [facility] Protein Electro, Random Urin destinee 12-16-2024 Albumin, Urine 34.3 % Normal . [facility] Comment on above: Performed By: #### C BC #### [facility] [address] [place] [address] [place] Kedvv-0-Vqyghsvt, Urine 2.2 % Normal . [facility] Comment on above: Performed By: #### C BC #### [facility] [address] [place] [id number] [place] Ushjq-3-Fnvvzeei, Urine 18.4 % Normal . [facility] Comment on above: Performed By: #### C BC #### [facility] [address] [place] [id number] [place] Beta Globulin, Urine 30.5 % Normal . [facility] Comment on above: Performed By: #### C BC #### [address] Gamma Globulin, Urine 14.7 % Normal . [facility] Comment on above: Performed By: #### C BC #### [address] M-Juan Miguel % Not Observed Normal Not Observed [facility] Comment on above: Performed By: #### C BC #### [address] Please Note: Comment Normal . The [facility] Comment on above: Result Comment: Prot ein electrophoresis scan will follow via computer, mail, or cadd technician delivery. PERFORMED BY: [place] [address] PATHOLOGIST POURER OFF PAZ RUTHERFORD M.D. Performed By: #### C BC #### [address] Protein (U) [Mass/Vol] 9.0 mg/dL Normal Not Estab. [facility] Comment on above: Performed By: #### C BC #### [address] Protein Electrophoresis, Ser umon 12-16-2024 Albumin [Mass/Vol] 3.8 g/dL Normal 2.9-4.4 The [facility] Comment on above: Performed By: #### B MP #### [address] Albumin/Globulin [Mass ratio] 1.4 {ratio} Normal 0.7-1.7 [facility] Comment on above: Performed By: #### B MP #### [address] Gdwrm-3-Ngwqhbhs 0.2 g/dL Normal 0.0-0.4 The [facility] Comment on above: Performed By: #### B MP #### [address] Elaud-2-Qxdthoas 0.6 g/dL Normal 0.4-1.0 [facility] Comment on above: Performed By: #### B MP #### [address] Beta Globulin 1.1 g/dL Normal 0.7-1.3 The [facility] Comment on above: Performed By: #### B MP #### [address] Gamma Globulin 0.8 g/dL Normal 0.4-1.8 [facility] Comment on above: Performed By: #### B MP #### [address] Globulin (S) [Mass/Vol] 2.7 g/dL Normal 2.2-3.9 [facility] Comment on above: Performed By: #### B MP #### [address] M-Juan Miguel Not Observed Normal Not Observed [facility] Comment on above: Performed By: #### B MP #### [address] Protein [Mass/Vol] 6.5 g/dL Normal 6.0-8.5 The [facility] Comment on above: Performed By: #### B MP #### [address] SPE-Note Comment Normal . [facility] Comment on above: Result Comment: Prot ein electrophoresis scan will follow via computer, mail, or cadd technician delivery. Performed at: - [address] [id number] Vertical Contour Band Saw Operator: Erick Neville PhD, Phone: [phone] Performed By: #### B MP #### [address] Protein Test strip (U) [Mass /Vol]Ordered By: Everett Valdez on 12-16-2024 Protein (U) [Mass/Vol] Protein [Mass/volume] in Urine by Test strip Negative [facility] Protein [Mass/volume] in Ser um or PlasmaOrdered By: Everett Valdez on 12-16-2024 Protein [Mass/Vol] Protein [Mass/volume ] in Serum or Plasma Low 6.4-8.9 [facility] Prothrombin time (PT)Ordered By: Everett Valdez on 12-16-2024 PT Coag (PPP) [Time] Prothrombin time (PT) 9.0- 12.9 [facility] Comment on above: A hematocrit value g reater than 55% may lead to inaccurate results in coagulation testing. Patients having hematocrit values >55% require a special collection tube for coagulation studies. Please contact the laboratory at [phone] for redraw instructions. RBC Auto (Bld) [#/Vol]Ordere d By: Everett Valdez on 12-16-2024 RBC (Bld) [#/Vol] Erythrocytes [#/volume] in Blood by Automated count 3.60-5.00 [facility] RPR w/rfx to Quant TP Abson 12-16-2024 RPR, Rfx Quant RPR Non-Reactive Normal Non Reactive Th e [facility] Comment on above: Result Comment: Perf ormed at: CB - [facility] [place] [id number] Vertical Contour Band Saw Operator: Erick Neville PhD, Phone: [phone] PERFORMED BY: [place] [address] PATHOLOGIST POURER OFF PAZ RUTHERFORD M.D. Performed By: #### C BC #### [address] Serum or plasma albumin/glob ulin mass ratioOrdered By: Everett Valdez on 12-16-2024 Albumin/Globulin [Mass ratio] Serum or plasma albumin/globulin mass ratio [facility] Serum or plasma anion gap de terminationOrdered By: Everett Valdez on 12-16-2024 Anion gap [Moles/Vol] Serum or plasma an ion gap determination 6.0-15.0 [facility] Sodium [Moles/volume] in Ser um or PlasmaOrdered By: Everett Valdez on 02-10-2025 Sodium [Moles/Vol] Sodium [Moles/volume ] in Serum or Plasma 136-145 [facility] Specific gravity Test strip (U) [Rel density]Ordered By: Everett Valdez on 12-16-2024 Specific gravity (U) [Rel density] Specific gravity of Urine by Test strip 1.001-1.030 [facility] Thyroid Peroxidase Antibodie son 12-16-2024 Thyroid Peroxidase Antibodies 10 [IU]/mL Normal 0-34 [facility] Comment on above: Result Comment: Perf ormed at: - [facility] [address] [id number] Vertical Contour Band Saw Operator: Erick Neville PhD, Phone: [phone] Performed By: #### C BC #### [address] Thyroid Stimulating Hormoneo n 12-16-2024 TSH Qn 1.48 m[IU]/L Normal 0.45-5.33 The [facility] Comment on above: Result Comment: PERF ORMED BY: [place] [address] PATHOLOGIST POURER OFF PAZ RUTHERFORD M.D. Performed By: #### R OH W RFX, ALDOLASE, GUZMAN,URINE, UPE RAND #### [facility] , #### ADDONUAPLUS, CBC, CRP, CMP, T4F, ESR, TSH3, CK #### [address] Thyrotropin [Units/volume] i n Serum or PlasmaOrdered By: Everett Valdez on 12-16-2024 TSH Qn Thyrotropin [Units/volume] in Serum or Plasma 0.45-5.33 [facility] Thyroxine (T4) free [Mass/vo lume] in Serum or PlasmaOrdered By: Everett Valdez on 12-16-2024 Free T4 [Mass/Vol] Thyroxine (T4) free [Mass/volume] in Serum or Plasma 0.61-1.12 [facility] Urea nitrogen [Mass/volume] in Serum or PlasmaOrdered By: Everett Valdez on 12-16-2024 Urea nitrogen [Mass/Vol] Urea nitrogen [Mass/volume] in Serum or Plasma 7 [facility] Urobilinogen Test strip (U) [Mass/Vol]Ordered By: Everett Valdez on 12-16-2024 Urobilinogen (U) [Mass/Vol] Urobilinogen [Mass/volume] in Urine by Test strip Normal [facility] WBC Auto (Bld) [#/Vol]Ordere d By: Everett Valdez on 12-16-2024 WBC (Bld) [#/Vol] Leukocytes [#/volume ] in Blood by Automated count 3.8-11.6 [facility] aPTT in Platelet poor plasma by Coagulation assayOrdered By: Everett Valdez on 12-16-2024 aPTT Coag (PPP) [Time] Activated partial thromboplastin time (aPTT) in platelet poor plasma by coagulation a 25.1-36.5 [facility] Comment on above: A hematocrit value g reater than 55% may lead to inaccurate results in coagulation testing. Patients having hematocrit values >55% require a special collection tube for coagulation studies. Please contact the laboratory at [phone] for redraw instructions. pH Test strip (U)Ordered By: Everett Valdez on 12-16-2024 pH (U) pH of Urine by Test strip 5.0-9.0 [facility] HBV surface Ab IA Qnon 12-11 Anti HBs quant. >500.00 Normal [facility] Comment on above: Result Comment: NOTE Vaccinated: >=10.00 mIU/mL, Positive (Immune) Unvaccinated: <10.00 mIU/mL, Negative (Not Immune) Interpretive values have changed due to implementation of a new method. Values run higher than previous method. Performed By: #### 3 5275-7, 82884-6, 8014-3, 5193-8, 6476-6 #### [facility] ([id number]) [address], [address] [place] [address] MeV IgG IA Ql (S)on 12-11-19 RUBEOLA AB SCREEN 4.1 AI High <0.9 [facility] Comment on above: Result Comment: POSI TIVE: Antibody(IgG) detected. Indicates previous exposure to rubeola virus and immunity. Performed By: #### 3 5275-7, 86281-2, 8014-3, 5193-8, 6476-6 #### [facility] ([id number]) [address], [address] [place] [address] MuV IgG IA Ql (S)on 12-11-19 25 MUMPS VIRUS IgG 2.1 AI High <0.9 [facility] Comment on above: Result Comment: Interpretation-------- <0.9 Negative 0.9 - 1.0 Equivocal >1.0 Positive Performed By: #### 3 5275-7, 84527-7, 8014-3, 5193-8, 6476-6 #### [facility] ([id number]) [address] [place] [address], [address] [place] [address] Rubella virus IgG Qn (S)on 0 12-11-2024 RUBELLA IgG 19 IU/mL Normal [facility] Comment on above: Result Comment: Interpretation-------- <8 NEGATIVE-considered Not Immune 8-9 EQUIVOCAL-consider retesting with new specimen >9 POSITIVE-considered Immune Performed By: #### 3 5275-7, 02488-0, 8014-3, 5193-8, 6476-6 #### [facility] ([id number]) [address] [place] [address], [address] [place] [address] VZV IgG IA Ql (S)on 12-11-19 25 VARICELLA IgG >8.0 High <0.9 [facility] Comment on above: Result Comment: Interpretation-------- <0.9 Negative 0.9 - 1.0 Equivocal >1.0 Positive Performed By: #### 3 5275-7, 64750-9, 8014-3, 5193-8, 6476-6 #### [facility] ([id number]) [address] [place] [address], [address] [place] [address] X-ray reportOrdered By: Brett Bullard on 11-20-2024 Study report [address] [address] XRay Report Signed Patient: Mary Leal MR#: [id number] : 1970 Acct:[id number] Age/Sex: 54 / F ADM Date: 5 Loc: XD Room: Type: [facility] Attending Dr: Anibal Medrano DO Copies to: Anibal Medrano DO~ Ordering Provider: Anibal Medrano DO Date of Service: 11/20/24 XR/XR shoulder BI min 2V: M25.511 - Pain in right shoulder 3 views both shoulder plain film HISTORY: Bilateral shoulder pain. COMPARISON: None ACUTE FINDINGS: None DEGENERATIVE CHANGE: Minor spurring. SOFT TISSUE FINDINGS: Unremarkable JOINT EFFUSION: None POSTOP CHANGES: Number stimulator. Cervical spine artificial disc BONY MINERALIZATION: Adequate XR/XR shoulder BI min 2V IMPRESSION: No acute findings. Impression dictated by: Andres Bullard M.D.11/20/2024 10:02 PM Dictation Location: [facility]--20 Transcribed By: [facility] 11/20/242201 Dictated By: Andres Bullard DO 11/20/242158 Signed By: 11/20/242201 [facility] XR shoulder BI min 2Von 11-06 XR shoulder BI min 2V [facility] Main [address] [address] XRay Report Signed Patient: Mary Leal MR#: [id number] : 1970 Acct:[id number] Age/Sex: 54 / F ADM Date: 11/20/24 Loc: XD Room: Type: [facility] CLI Attending Dr: Anibal Medrano DO Copies to: Anibal Medrano DO Ordering Provider: Anibal Medrano DO Date of Service: 11/20/24 XR/XR shoulder BI min 2V: M25.511 - Pain in right shoulder 3 views both shoulder plain film HISTORY: Bilateral shoulder pain. COMPARISON: None ACUTE FINDINGS: None DEGENERATIVE CHANGE: Minor spurring. SOFT TISSUE FINDINGS: Unremarkable JOINT EFFUSION: None POSTOP CHANGES: Number stimulator. Cervical spine artificial disc BONY MINERALIZATION: Adequate XR/XR shoulder BI min 2V IMPRESSION: No acute findings. Impression dictated by: Andres Bullard M.D.11/20/2024 10:02 PM Dictation Location: [facility]-20 Transcribed By: [facility] 11/20/242201 Dictated By: Andres Bullard DO 11/20/242158 Signed By: 11/20/242201 Normal [facility] NM gastric emptying studyon 11-14-2024 NM gastric emptying study [facility] [place] [address] Nuclear Medicine Report Signed Patient: Mary Leal MR#: [id number] : 1970 Acct:[id number] Age/Sex: 54 / F ADM Date: 11/14/24 Loc: NM Room: Type: [facility] CLI Attending Dr: Padmaja Llamas MD Copies to: Quinton Melendez Jr, DO Padmaja Llamas MD Ordering Provider: Padmaja Llamas MD Date of Service: 11/14/24 NM/NM gastric emptying study: R14.0 K31.84 GASTRIC EMPTYING STUDY: CLINICAL HISTORY: Nausea full filling for 5 years. TECHNIQUE: Following the oral ingestion of 1.1 mCi Tc 99m labeled sulfur colloid mixed with egg, planar imaging of the abdomen was obtained. FINDINGS: At 30 minutes, 88% of the radiotracer remained within the stomach. At 1 hour, 69% of the radiotracer remained within the stomach. At 2 hours, 43% of the radiotracer remained within the stomach. At 3 hours, 18% of the radiotracer remained within the stomach. At 4 hours, 3% of the radiotracer remained within the stomach. NM/NM gastric emptying study IMPRESSION: No scintigraphic evidence of gastroparesis. Impression dictated by: Quinton Melendez Jr., GastonOReno11/14/2024 1:54 PM Dictation Location: [facility]-19 Transcribed By: [facility] 11/14/24 1354 Dictated By: Quinton Melendez Jr, DO 11/14/24 1354 Signed By: 11/14/24 1354 Normal [facility] Basic Metabolic Panelon 10-06 Anion gap [Moles/Vol] 9.4 mmol/L Normal 6.0-15.0 [facility] Comment on above: Performed By: #### B MP #### [place] [address] [place] Calcium [Mass/Vol] 9.0 mg/dL Normal 8.6-10.3 The [facility] Comment on above: Performed By: #### B MP #### [place] [address] [place] Chloride [Moles/Vol] 107 mmol/L Normal 98-107 [facility] Comment on above: Performed By: #### B MP #### [facility] [address] [place] [id number] [facility] CO2 [Moles/Vol] 27.3 mmol/L Normal 21.0-31.0 [facility] Comment on above: Performed By: #### B MP #### [place] [id number] [place] Creatinine [Mass/Vol] 0.69 mg/dL Normal 0.60-1.20 [facility] Comment on above: Performed By: #### B MP #### [place] [id number] [place] Creatinine Clr Calc Pharmacy 91.21 Normal [facility] Comment on above: Result Comment: PERF ORMED BY: [place] [address] PATHOLOGIST POURER OFF PAZ RUTHERFORD M.D. Performed By: #### B MP #### [facility] [address] [place] [address] [place] GFR/1.73 sq M.predicted MDRD (S/P/Bld) [Vol rate/Area] mL/min/{1.73_m2} Normal [facility] Comment on above: Performed By: #### B MP #### [facility] [address] Glucose [Mass/Vol] 93 mg/dL Normal 70-100 [facility] Comment on above: Result Comment: [facility] Glucose Reference Range is dependent on time and content of last meal. Glucose of more than 200 mg/dL in a nonstressed, ambulatory subject supports the diagnosis of Diabetes Mellitus. ADA recommended reference range Performed By: #### B MP #### [address] Potassium [Moles/Vol] 3.7 mmol/L Normal 3.5-5.1 [facility] Comment on above: Performed By: #### B MP #### [place] [address] [place] Sodium [Moles/Vol] 140 mmol/L Normal 136-145 [facility] Comment on above: Performed By: #### B MP #### [place] [id number] [facility] Urea nitrogen [Mass/Vol] 14 mg/dL Normal 7-25 [facility] Comment on above: Performed By: #### B MP #### [place] [address] [place] Basophils Auto (Bld) [#/Vol] Ordered By: Cullen Christianson on 10-24-2024 Basophils (Bld) [#/Vol] Automated basophil count 0.0-0.2 [facility] Basophils/100 WBC Auto (Bld) Ordered By: Cullen Christianson on 10-24-2024 Basophils/100 WBC (Bld) Automated basophil % . [facility] Calcium [Mass/volume] in Ser um or PlasmaOrdered By: Cullen Christianson on 10-24-2024 Calcium [Mass/Vol] Calcium [Mass/volume ] in Serum or Plasma 8.6-10.3 [facility] Carbon dioxide, total [Moles /volume] in Serum or PlasmaOrdered By: Cullen Christianson on 10-24-2024 CO2 [Moles/Vol] Carbon dioxide, tota l [Moles/volume] in Serum or Plasma 21.0-31.0 [facility] Chloride [Moles/volume] in S jay or PlasmaOrdered By: Cullen Christianson on 10-24-2024 Chloride [Moles/Vol] Chloride [Moles/volume] in Serum or Plasma 98-107 [facility] Complete Blood Count Auto Di ffon 10-24-2024 Basophils (Bld) [#/Vol] 0.1 10*3/uL Normal 0.0-0.2 [facility] Comment on above: Result Comment: PERF ORMED BY: [place] [address] PATHOLOGIST POURER OFF PAZ RUTHERFORD M.D. Performed By: #### C BC #### [address] Basophils/100 WBC (Bld) 1.1 % Normal . [facility] Comment on above: Performed By: #### C BC #### [address] Eosinophils (Bld) [#/Vol] 0.2 10*3/uL Normal 0.0-0.45 [facility] Comment on above: Performed By: #### C BC #### [place] [address] [place] Eosinophils/100 WBC (Bld) 3.7 % Normal . [facility] Comment on above: Performed By: #### C BC #### [address] Erythrocyte distribution width (RBC) [Ratio] 13.1 % Normal 11.9-15.3 [facility] Comment on above: Performed By: #### C BC #### [address] [address] [place] Hematocrit (Bld) [Volume fraction] 37.9 % Normal 34.0-46.4 [facility] Comment on above: Performed By: #### C BC #### [address] Hemoglobin (Bld) [Mass/Vol] 12.8 g/dL Normal 11.8-15.4 [facility] Comment on above: Performed By: #### C BC #### [address] Lymphocytes (Bld) [#/Vol] 1.5 10*3/uL Normal 1.00-4.8 [facility] Comment on above: Performed By: #### C BC #### [address] Lymphocytes/100 WBC (Bld) 29.9 % Normal . [facility] Comment on above: Performed By: #### C BC #### [address] MCH (RBC) [Entitic mass] 28.7 pg Normal 24.7-34.3 [facility] Comment on above: Performed By: #### C BC #### [address] MCV (RBC) [Entitic vol] 85.1 fL Normal 80-100 [facility] Comment on above: Performed By: #### C BC #### [address] Mean Corpuscular HGB Conc 33.8 g/dL Normal 32.0-35.0 [facility] Comment on above: Performed By: #### C BC #### [address] Monocytes (Bld) [#/Vol] 0.4 10*3/uL Normal 0.0-0.8 [facility] Comment on above: Performed By: #### C BC #### [address] Monocytes/100 WBC (Bld) 7.8 % Normal . [facility] Comment on above: Performed By: #### C BC #### [facility] [address] [place] [address] [place] Neutrophils (Bld) [#/Vol] 2.9 10*3/uL Normal 1.8-7.7 [facility] Comment on above: Performed By: #### C BC #### [facility] [address] [place] [address] [place] Neutrophils/100 WBC (Bld) 57.5 % Normal . [facility] Comment on above: Performed By: #### C BC #### [facility] [address] [place] [address] [place] NRBC% 0.1 /100{WBC} Normal 0-0.5 [facility] Comment on above: Performed By: #### C BC #### [facility] [address] Platelet mean volume (Bld) [Entitic vol] 7.1 fL Normal 6.3-10.7 The [facility] Comment on above: Performed By: #### C BC #### [facility] [address] [place] [id number] [place] Platelets (Bld) [#/Vol] 307 10*3/uL Normal 150-450 [facility] Comment on above: Performed By: #### C BC #### [facility] [address] [place] [id number] [place] RBC (Bld) [#/Vol] 4.45 10*6/uL Normal 3.60-5.00 The [facility] Comment on above: Performed By: #### C BC #### [facility] [address] [place] [id number] [place] WBC (Bld) [#/Vol] 5.0 10*3/uL Normal 3.8-11.6 [facility] Comment on above: Performed By: #### C BC #### [facility] [address] [place] [id number] [place] Creatinine [Mass/volume] in Serum or PlasmaOrdered By: Cullen Christianson on 10-24-2024 Creatinine [Mass/Vol] Creatinine [Mass/volume] in Serum or Plasma 0.60-1.20 [facility] Eosinophils Auto (Bld) [#/Vo l]Ordered By: Cullen Christianson on 10-24-2024 Eosinophils (Bld) [#/Vol] Automated eosinophil count 0.0-0.45 [facility] Eosinophils/100 WBC Auto (Bl d)Ordered By: Cullen Christianson on 10-24-2024 Eosinophils/100 WBC (Bld) Automated eosinophil % . [facility] Erythrocyte distribution wid th Auto (RBC) [Ratio]Ordered By: Cullen Christianson on 10-24-2024 Erythrocyte distribution width (RBC) [Ratio] Erythrocyte distribution width [Ratio] by Automated count 11.9-15.3 [facility] Glucose [Mass/volume] in Ser um or PlasmaOrdered By: Cullen Christianson on 10-24-2024 Glucose [Mass/Vol] Glucose [Mass/volume ] in Serum or Plasma 70-100 [facility] Comment on above: ADA recommended refe rence rangeRandom Glucose Reference Range is dependent on time and content of last meal. Glucose of more than 200 mg/dL in a nonstressed, ambulatory subject supports the diagnosis of Diabetes Mellitus. Hematocrit Auto (Bld) [Volum e fraction]Ordered By: Cullen Christianson on 10-24-2024 Hematocrit (Bld) [Volume fraction] Hematocrit [Volume Fraction] of Blood by Automated count 34.0-46.4 [facility] Hemoglobin [Mass/volume] in BloodOrdered By: Cullen Christianson on 10-24-2024 Hemoglobin (Bld) [Mass/Vol] Hemoglobin [Mass/volume] in Blood 11.8-15.4 [facility] Leukocytes [#/volume] correc herbert for nucleated erythrocytes in Blood by Automated counOrdered By: Cullen Christianson on 10-24-2024 WBC corrected for nucl RBC Auto (Bld) [#/Vol] Leukocytes [#/volume] corrected for nucleated erythrocytes in Blood by Automated coun 3.8-11.6 [facility] Lymphocytes Auto (Bld) [#/Vo l]Ordered By: Cullen Christianson on 10-24-2024 Lymphocytes (Bld) [#/Vol] Lymphocytes [#/volume] in Blood by Automated count 1.00-4.8 [facility] Lymphocytes/100 WBC Auto (Bl d)Ordered By: Cullen Christianson on 10-24-2024 Lymphocytes/100 WBC (Bld) Lymphocytes/100 leukocytes in Blood by Automated count . [facility] MCH Auto (RBC) [Entitic mass ]Ordered By: Cullen Christianson on 10-24-2024 MCH (RBC) [Entitic mass] MCH [Entitic mass] by Automated count 24.7-34.3 [facility] MCHC Auto (RBC) [Mass/Vol]Or dered By: Cullen Christianson on 10-24-2024 MCHC (RBC) [Mass/Vol] MCHC [Mass/volume] by Automated count 32.0-35.0 [facility] MCV Auto (RBC) [Entitic vol] Ordered By: Cullen Christianson on 10-24-2024 MCV (RBC) [Entitic vol] MCV [Entitic volume] by Automated count 80-100 [facility] Monocytes Auto (Bld) [#/Vol] Ordered By: Cullen Christianson on 10-24-2024 Monocytes (Bld) [#/Vol] Automated blood monocyte count 0.0-0.8 [facility] Monocytes/100 WBC Auto (Bld) Ordered By: Cullen Christianson on 10-24-2024 Monocytes/100 WBC (Bld) Automated monocyte % . [facility] Neutrophils Auto (Bld) [#/Vo l]Ordered By: Cullen Christianson on 10-24-2024 Neutrophils (Bld) [#/Vol] Neutrophils [#/volume] in Blood by Automated count 1.8-7.7 [facility] Neutrophils/100 WBC Auto (Bl d)Ordered By: Cullen Christianson on 10-24-2024 Neutrophils/100 WBC (Bld) Automated neutrophil % . [facility] No Panel InformationOrdered By: Cullen Christianson on 10-24-2024 Estimated GFR (CKD-EPI) > 60.0 mL/Min [facility] Creatinine Clearance (Chem 91.21 [facility] Nucleated erythrocytes [Pres ence] in Blood by Automated countOrdered By: Cullen Christianson on 10-24-2024 Nucleated RBC Auto Ql (Bld) Nucleated erythrocytes [Presence] in Blood by Automated count 0-0.5 [facility] Platelet mean volume Auto (B ld) [Entitic vol]Ordered By: Cullen Christianson on 10-24-2024 Platelet mean volume (Bld) [Entitic vol] Platelet mean volume [Entitic volume] in Blood by Automated count 6.3-10.7 [facility] Platelets Auto (Bld) [#/Vol] Ordered By: Cullen Christianson on 10-24-2024 Platelets (Bld) [#/Vol] Platelets [#/volume] in Blood by Automated count 150-450 [facility] Potassium [Moles/volume] in Serum or PlasmaOrdered By: Cullen Christianson on 10-24-2024 Potassium [Moles/Vol] Potassium [Moles/volume] in Serum or Plasma 3.5-5.1 [facility] RBC Auto (Bld) [#/Vol]Ordere d By: Cullen Christianson on 10-24-2024 RBC (Bld) [#/Vol] Erythrocytes [#/volume] in Blood by Automated count 3.60-5.00 [facility] Serum or plasma anion gap de terminationOrdered By: Cullen Christianson on 10-24-2024 Anion gap [Moles/Vol] Serum or plasma an ion gap determination 6.0-15.0 [facility] Sodium [Moles/volume] in Ser um or PlasmaOrdered By: Cullen Christianson on 10-24-2024 Sodium [Moles/Vol] Sodium [Moles/volume ] in Serum or Plasma 136-145 [facility] Urea nitrogen [Mass/volume] in Serum or PlasmaOrdered By: Cullen Christianson on 10-24-2024 Urea nitrogen [Mass/Vol] Urea nitrogen [Mass/volume] in Serum or Plasma 7-25 [facility] WBC Auto (Bld) [#/Vol]Ordere d By: Cullen Christianson on 10-24-2024 WBC (Bld) [#/Vol] Leukocytes [#/volume ] in Blood by Automated count 3.8-11.6 [facility] Boyd 10-23-2024 L -- ---- Specimen: [id number] Received: 10/24/24 Status: CASEY Zeina Num: [id number] Spec Type: Surgical Subm Dr: Dipti Acevedo DO Tissues: A Vaginal mucosa-other than incidental (GRANULATION TISSUE) Procedures: Praneeth SOTELO/Nadja L4 ---- Age/ Patient Sex Location Account Attending Physician ---- Mary Leal 54/F [place] [id number] Dipti AcevedoDO ---- SPEC NUM: [id number] RECD: 10/24/24 STATUS: ARNOLDOCarey PASTRANA NUM: [id number] [place]: 10/23/24- [facility] DR: Dipti Acevedo DO ENTERED: 10/24/[address]: SPEC TYPE: Surgical DEPT: S ENTERED BY: [id number] RECV BY: [id number] ORDERED: HE, Gross/Micro L4 ORDERED: ASHLEIGH Gross/Micro L4 Pathological Diagnosis Vaginal mucosa, vaginal cuff repair excision and partial hymenectomy: -Benign vaginal squamous mucosa with diffuse moderate reactive squamous acanthosis including occasional mild parakeratosis, and diffuse mild nonspecific congestion in lamina propria without any abnormal chronic inflammation, also suggesting nonspecific reactive effect of the redundant mucosal portion, otherwise also without malignancy or distinct squamous atypia identified Clinical Information Granulation tissue Gross Description Part A is received in formalin labeled with the patients name, date of , and granulation tissue are 2 strips of jaimes-pink, fibromembranous tissue, 1 x 0.3 x 0.2 cm, and 2 x 0.5 x 0.4 cm. The larger specimen is bisected to reveal jaimes-pink, glistening and uniform cut surfaces. The specimen is entirely submitted in a single cassette. (1, ns, [id number] A) LES ---- Specimen: [id number] Received: 10/24/24 Status: CASEY Pastrana Num: [id number] Spec Type: Surgical Subm Dr: Dipti Acevedo,DO Tissues: A Vaginal mucosa-other than incidental (GRANULATION TISSUE) Procedures: ASHLEIGH Gross/Micro L4 ---- Patient: Mary Leal [id number] (Continued) ---- Specimen: [id number] Received: 10/24/24 (Continued) Signed (signature on file) Kiara Velasco MD 10/26/24 1126 ---- Specimen: [id number] Received: 10/24/24 Status: CASEY Pastrana Num: [id number] Spec Type: Surgical Subm Dr: Dipti Acevedo DO Tissues: A Vaginal mucosa-other than incidental (GRANULATION TISSUE) Procedures: Praneeth SOTELO/Nadja L4 ---- Patient: Mary Leal [id number] (Continued) ---- Specimen: [id number] Received: 10/24/24 (Continued) Microscopic Description Microscopic examinations are performed supporting the above interpretation CPT Codes 13746 ---- ---- Specimen: [id number] Received: 10/24/24 Status: CASEY Zeina Num: [id number] Spec Type: Surgical Subm Dr: Dpiti Acveedo, Tissues: A Vaginal mucosa-other than incidental (GRANULATION TISSUE) Procedures: Praneeth SOTELO/Nadja L4 ---- Patient: Mary Leal [id number] (Continued) ---- Signed (signature on file) Kiara Velasco MD 10/26/24 1126 Normal [facility] MR cervical spine wo raymond 1 12-11-2023 MR cervical spine wo con [facility] Main [place] [address] [place] [address] MRI Report Signed Patient: Mary Leal MR#: [id number] 863 : 1970 Acct:[id number] Age/Sex: 54 / F ADM Date: 10/10/24 Loc: [facility] Room: Type: [facility] CLI Attending Dr: Anibal Medrano DO Copies to: Anibal Medrano DO Ordering Provider: Anibal Medrano DO Date of Service: 10/10/24 MR/MR cervical spine wo con: M54.16 - Radiculopathy, lumbar region MR cervical spine wo con 10/10/2024 8:46 AM SIGNS AND SYMPTOMS: Neck pain radiating into upper studies with numbness and tingling left greater than right PROTOCOL: Multiplanar multisequence MR images of the cervical spine without IV contrast COMPARISON: 12/19/2023 FINDINGS: The bones of the cervical spine are in anatomic alignment. There is preservation of vertebral body heights. There is mild disc height loss at C5-C6. There is intervertebral disc arthroplasty at C6-C7. The marrow signal is within normal limits. The cord is normal in signal. No epidural or paraspinous fluid collection is appreciated. The visualized paraspinous soft tissues are within normal limits. The prevertebral soft tissues are within normal limits. A stimulator is partly visualized in the right submandibular space and along the right side of the neck. At C2-C3: There is a normal disc, central canal, and neural foramen. At C3-C4: There is left-sided facet hypertrophy similar to the prior exam contributing to mild left neural foraminal narrowing. No spinal canal narrowing. At C4-C5: There is a normal disc, central canal, and neural foramen. At C5-C6: There is a broad-based disc bulge with facet and operative injection change contributing to mild to moderate right neural foraminal narrowing and mild left neural foraminal narrowing. There is mild spinal canal stenosis. This is slightly worse when compared to the prior exam. At C6-C7: There is intervertebral disc arthroplasty without significant stenosis. This is unchanged. At C7-T1: There is a normal disc, central canal, and neural foramen. MR/MR cervical spine wo con IMPRESSION: No cord compression or cord signal abnormality. At C3-C4: There is left-sided facet hypertrophy similar to the prior exam contributing to mild left neural foraminal narrowing. No spinal canal narrowing. At C5-C6: There is a broad-based disc bulge with facet and operative injection change contributing to mild to moderate right neural foraminal narrowing and mild left neural foraminal narrowing. There is mild spinal canal stenosis. This is slightly worse when compared to the prior exam. At C6-C7: There is intervertebral disc arthroplasty without significant stenosis. This is unchanged. Impression dictated by: Rajiv Garcia M.D.10/10/2024 3:47 PM Dictation Location: [place] [address] Transcribed By: [facility] 10/10/241546 Dictated By: Rajiv Garcia II, MD 10/10/241542 Signed By: 10/10/241546 Normal [facility] MR lumbar spine wo conon MR lumbar spine wo con [facility] [place] [address] MRI Report Signed Patient: Mary Leal MR#: [id number] 863 : 1970 Acct:[id number] Age/Sex: 54 / F ADM Date: 10/10/24 Loc: [facility] Room: Type: [facility] Attending Dr: Monica IBARRA Copies to: FRED Schafer Ordering Provider: FRED Schafer Date of Service: 10/10/24 MR/MR lumbar spine wo con: M47.816 MR lumbar spine wo con 10/10/2024 8:44 AM SIGNS AND SYMPTOMS: Low back pain radiating into lower extremities with numbness and tingling left greater than right PROTOCOL: Multiplanar multisequence MR images of the lumbar spine were obtained without IV contrast COMPARISON: 08/24/2021 FINDINGS: The bones of the lumbar spine are in anatomic alignment. There is preservation of vertebral body heights and intervertebral disc spaces. The marrow signal is within normal limits. The conus terminates at the mid L1 vertebral body level. No epidural or paraspinous fluid collection is appreciated. At T12-L1: There is a normal disc, central canal, and neural foramen. At L1-L2: There is a normal disc, central canal, and neural foramen. At L2-L3: There is a normal disc, central canal, and neural foramen. At L3-L4: There is facet hypertrophy similar to the prior exam without significant stenosis. At L4-L5: There is facet hypertrophy right greater than left with mild right-sided neural foraminal narrowing similar to the prior exam. At L5-S1: There is a normal disc, central canal, and neural foramen. MR/MR lumbar spine wo con IMPRESSION: Similar mild degenerative changes predominantly at the L3-4 and L4-5 levels. No significant interval change. Impression dictated by: Rajiv Garcia M.D.10/10/2024 3:55 PM Dictation Location: [place] [address] Transcribed By: [facility] 10/10/24 1555 Dictated By: Rajiv Garcia II, MD 10/10/24 1547 Signed By: 10/10/24 1555 Normal [facility] XR pre/post mri xrayon 10-10 XR pre/post mri xray [facility] [place] [address] XRay Report Signed Patient: Mary Leal MR#: [id number] 863 : 1970 Acct:[id number] Age/Sex: 54 / F ADM Date: 10/10/24 Loc: [facility] Room: Type: [facility] Attending Dr: Anibal Medrano DO Copies to: Anibal Medrano DO Ordering Provider: Anibal Medrano DO Date of Service: 10/10/24 XR/XR pre/post mri xray: M54.16 XR pre/post mri xray 10/10/2024 9:23 AM SIGNS AND SYMPTOMS: Neck pain radiating into upper studies with numbness and tingling left greater than right PROTOCOLS: Lateral, oblique, and flexion-extension views of the cervical spine COMPARISON: 07/24/2018 FINDINGS: The bones are in anatomic alignment. There is preservation of the vertebral body heights. There is 4 mm of retrolisthesis of C5 upon C6 similar to the prior exam. There is accompanying mild disc height loss. There is uncovertebral joint spurring. There is intervertebral disc arthroplasty at C6-C7 showing no significant interval change. No malalignment or hardware complication. There is no fracture or destructive lesion. Flexion and extension view show no pathologic movement. Neural foraminal stenosis is noted bilaterally at C5-C6. A stimulator is incidentally noted at the base of the neck on the right extending into the submandibular region. XR/XR pre/post mri xray IMPRESSION: Similar degenerative changes are noted in the cervical spine without pathologic movement on flexion or extension. Uncomplicated intervertebral disc arthroplasty at C6-C7. Impression dictated by: Rajiv Garcia M.D.10/10/2024 3:58 PM Dictation Location: [place] [address] Transcribed By: MARIO 10/10/241557 Dictated By: Rajiv Garcia II, MD 10/10/241554 Signed By: 10/10/24 155 Normal [facility] Urinalysis macro (dipstick) panel (U)on 09-04-2024 Bilirubin, UA Negative Negative - 4(70) +++ mg/dL [facility] Blood, UA Negative Negative - 50 Devin/mcL [facility] Clarity, UA Clear [facility] Color, UA Yellow [facility] Glucose, UA Negative Negative - 2000(110) ++++ mg/dL [facility] Ketones, UA Negative Negative - 160(16) ++++ mg/dL [facility] Leukocytes, UA Negative Negative - 500+++ Aicha/mcL [facility] Nitrite, UA Negative Negative - Positive [facility] pH, UA 5 5 - 9 [facility] Protein, UA Negative Negative - 2000(20) ++++ mg/dL [facility] Spec Grav, UA 1.01 1 - 1.03 [facility] Urobilinogen, UA 0.2 0.2 - 12 mg/dL [facility] US ABDOMEN LIMITEDon 024 US ABDOMEN LIMITED [...] report is generated using voice recognition reporting ([employer]). On occasion [employer] erroneously drops words from the report or replaces the spoken word with similar sounding words. Please call with any questions/concerns regarding this report.* Dictated and transcribed 08/28/2024/tm This report has been electronically signed and approved by the interpreting radiologist. Electronically Signed Dipti Lockhart II, M.D. 2024-08-28 16:38:48 Normal Not Available Follow-Upon 07-26-2024 Follow-Up [id number] Darrian Leal 1970 F Date Provider Department Center 07/26/2024 ChiaraTeganPAULINE CHRISTENSEN [facility] SLEEP [facility] No family history on file Level of Service:63080 [place] OFFICE/OUTPATIENT ESTABLISHED MOD MDM 30 MIN Reason for Visit and Comments: Follow-up [108456] - Inspire initiation Normal [facility] US ABDOMEN LIMITEDon 024 US ABDOMEN [...] report is generated using voice recognition reporting ([employer]). On occasion [employer] erroneously drops words from the report or [...] appointment to 07/26 at 10:00 am. Normal [facility] Telephoneon 07-12-2024 Telephone [id number] Darrian Leal 1970 F Date Provider Department Center 07/12/2024 PAULINE SANTACRUZ [facility] SLEEP [facility] No family history on file Reason for Visit and Comments: Reschedule [709] Normal [facility] 36on 06-17-2024 36 Rescheduled cancelle d Inspire follow up appointment for 06/26 at 9:00 am. Normal [facility] Boyd 05-27-2024 L Specimen: [id number] Received: 05/28/24 Status: CASEY Pastrana Num: [id number] Spec Type: Surgical Subm Dr: Sade Felix DPM, MS Tissues: A Gross Only (CALCANEOUS GRAFT) Procedures: Level 1 Gross Age/ Patient Sex Location Account Attending Physician Mary Leal 54/F LABELL [id number] Sade Felix DPM, MS SPEC NUM: [id number] RECD: 05/28/24 STATUS: CASEY PASTRANA NUM: [id number] BOAZ: 07/22/24-[address]: Sade Felix DPM, MS ENTERED: 05/28/24-13[address] [facility] [address]: Karina,Lab SPEC TYPE: Surgical DEPT: JENNA KELLEY ORDERED: Level 1 Gross ORDERED: Level 1 Gross Pathological Diagnosis Right calcaneus graft, removal: Hardware, gross examination only. Clinical Information Peroneal tendinitis right leg, pain D/T hardware Gross Description Received in formalin labeled with the patient's name, date of and right calcaneus graft is a 2.4 x 2.2 x 0.7 cm metallic portion of hardware covered by jaimes bone cement. The following inscription is identified on the device 2019 [id number] . Gross photos are included. The specimen is for gross only examination. CPT Codes 50323 DEVICE DEVICE ---- ---- Specimen: [id number] Received: 05/28/24 Status: CASEY Pastrana Num: [id number] Spec Type: Surgical Subm Dr: Sade Felix DPM, MS Tissues: A Gross Only (CALCANEOUS GRAFT) Procedures: Level 1 Gross ---- Patient: Mary Leal [id number] (Continued) ---- Signed (signature on file) Paz Rutherford MD 06/19/24 1554 Normal [facility] MR ankle RT wo conon 024 MR ankle RT wo con [facility] [place] [address] MRI Report Signed Patient: Mary Leal MR#: [id number] 863 : 1970 Acct:[id number] Age/Sex: 54 / F ADM Date: 04/30/24 Loc: [facility] Room: Type: [facility] Attending Dr: Sade Felix DPM, MS Copies [...] Andres Bullard M.D.04/30/2024 3:14 PM Dictation Location: [facility] Transcribed By: [facility] 04/30/24 1514 Dictated By: Andres Bullard DO 04/30/24 1503 Signed By: 04/30/24 1514 Normal [facility] 29on 04-28-2024 29 Encounter addended b y: Dick Mann MD on: 05/07/2024 7:26 PM Actions taken: Charge Capture section accepted Normal [facility] Documentationon 04-17-2024 Documentation [id number] Darrian Leal en 1970 F Date Provider Department [place] 04/17/2024 58189-LRQFRADHA STARK [facility] No family history on file [facility] Letter (Out)on 04-17-2024 Letter (Out) [id number] Darrian Lael en 1970 Date Provider Department [place] 04/17/202477982-CIEVRADHA STARK [facility] Gerardo [facility] No family history on file [facility] DIAGNOSTIC UPPER ENDOSCOPYon 04-12-2024 [facility] Patient Name: Mary Leal Procedure Date: 04/12/2024 11:46 AM Date of : 1970 Admit Type: Outpatient Age: 53 Room: [facility] 3 Gender: Female Note Status: Finalized Attending MD: Milagros Franco MD, PHD, [id number] Procedure: Upper GI endoscopy Attending Participation: I personally performed the entire procedure. Indications: Dysphagia, Heartburn Providers: Milagros Franco MD, PHD (Doctor), Stacie Johns RN (Nurse), Nawaf Pinzon, Manager Pediatric (Manager Pediatric), Everett Maria APRN-BECCA (Anesthesia Staff) Referring MD: Padmaja Llamas MD, [...] verified by the physician, the nurse, the screen printing cloth spreader and the medical technician assistant in the procedure room. Mental Status Examination: [...] oxygen saturations were monitored continuously. The Endoscope ([id number]) was introduced through the mouth, and advanced [...] examined (more content not included)... LAB, [facility] Radiology Study observation (narrative) [facility] SURG PATH REQUESTon 04-12-20 24 Case Report [facility] Comment on above: Result Comment: Surg ical Pathology Report Case: [id number] Authorizing Provider: Milagros Franco MD, Collected: 04/12/2024 12:48 PM PhD Ordering Location: Endoscopy Outpatient Care Received: 04/12/2024 12:57 PM [place] Pathologist: Manish Tom MD Specimens: A) - TISSUE, gastric biopsy r/o HP evaluate for eosiniphils (large forceps) B) - TISSUE, GE Junction r/o Barrets (large forceps) Performed By: #### S URGP #### [facility] (DEFAULT) [address] [place] [address] Clinical History Preop Diagnosis: [place] Grade D esophagitis [K20.80]. Early satiety [R68.81]. Unintentional weight loss [R63.4]. Gastroparesis [K31.84]. Medical History: Gastroesophageal reflux disease. Asthma. Benign essential hypertension. History of colectomy. Gastroparesis. Arthritis. Depression. Migraine. Constipation. Normal [facility] Comment on above: Performed By: #### S URGP #### [facility] (DEFAULT) [address] [place] [address] Gross Description Normal [facility] Comment on above: Result [...] dimension. TE 1 Lab Use Only: JobID [id number] Grosser for this case was: Carmen Lugochter Performed By: #### S URGP #### [facility] (DEFAULT) [address] [address] Microscopic Description A microscopic examination was performed. [facility] Comment on above: Performed By: #### S URGP #### [facility] (DEFAULT) [address] [place] [address] [facility] Comment on above: Result Comment: A. S tomach, biopsy: Active erosive esophagitis. No Helicobacter pylori organisms identified. B. GE junction, biopsy: Gastroesophageal squamocolumnar junctional mucosa with reflux pattern of injury. No Vega's specialized columnar epithelium (intestinal metaplasia) identified. Performed By: #### S URGP #### [facility] (DEFAULT) [address] [place] [address] Professional Interpretation Performed at: [facility] Comment on above: Result Comment: [facility] For Immediate Release to Patient's [facility]? Yes [address] [place] [address] Performed By: #### S URGP #### [facility] (DEFAULT) [address] [address] 36on 04-10-2024 36 [facility] to schedule Inspire follow up appointment following sleep study on 04/28. Offered 06/05 at 8:30 am or 4:00 pm OR 06/12 at 8:30 am. [facility] Telephoneon 04-10-2024 Telephone [id number] Darrian Leal en 1970 F Date Provider Department Center 04/10/2024 PAULINE SANTACRUZ [facility] SLEEP [facility] No family history on file Reason for Visit and Comments: Appointment [375] [facility] Follow-Upon 04-03-2024 Follow-Up [id number] Darrian Leal en 1970 F Date Provider Department Center 04/03/2024 PAULINE SANTACRUZ [facility] SLEEP [facility] No family history on file Level of Service:88854 [place] OFFICE/OUTPATIENT ESTABLISHED MOD MDM 30 MIN Reason for Visit and Comments: Follow-up [023848] - Pt has the Inspire and is here for a follow up. She states it is unbelievable how well it is working for her. She is sleeping through the night, which she hasn't done for years. She is here for a few small adjustments, such as moving it from 6 hours of sleep a night to 8. Normal [facility] CBC AND ELECTRONIC DIFFon Basophils (Bld) [#/Vol] 0.04 10*3/uL Normal 0.00-0.15 [facility] Comment on above: Performed By: #### L [id number] #### [facility] (DEFAULT) [address] [address] Basophils/100 WBC (Bld) 0.6 % Normal [facility] Comment on above: Performed By: #### L [id number] #### [facility] (DEFAULT) [address] [address] DIFF STATUS Electronic Differential Normal [facility] Comment on above: Performed By: #### L AB980 #### [facility] (DEFAULT) [address] [address] Eosinophils (Bld) [#/Vol] 0.08 10*3/uL Normal 0.00-0.42 [facility] Comment on above: Performed By: #### L AB980 #### [facility] (DEFAULT) [address] [address] Eosinophils/100 WBC (Bld) 1.2 % Normal [facility] Comment on above: Performed By: #### L AB980 #### [facility] (DEFAULT) [address] [address] Hematocrit (Bld) [Volume fraction] 40.1 % Normal 34.9-44.3 [facility] Comment on above: Performed By: #### L AB980 #### [facility] (DEFAULT) [address] [place] [address] Hemoglobin (Bld) [Mass/Vol] 12.6 g/dL Normal 11.4-15.2 [facility] Comment on above: Performed By: #### L AB980 #### [facility] (DEFAULT) [address] [address] Immature Grans % 0.5 % Normal [facility] Comment on above: Performed By: #### L AB980 #### [facility] (DEFAULT) [address] [place] [address] Immature Grans Absolute < Normal <=0.08 [facility] Comment on above: Performed By: #### L AB980 #### [facility] (DEFAULT) [address] [address] Lymphocytes (Bld) [#/Vol] 2.05 10*3/uL Normal 1.16-3.51 [facility] Comment on above: Performed By: #### L [id number] #### [facility] (DEFAULT) [address] [address] Lymphocytes/100 WBC (Bld) 31.6 % Normal [facility] [facility] Comment on above: Performed By: #### L AB980 #### [facility] (DEFAULT) [address] [address] MCV (RBC) [Entitic vol] 86.6 fL Normal 79.6-97.7 [facility] Comment on above: Performed By: #### L AB980 #### [facility] (DEFAULT) [address] [address] Mean Cell Hgb 27.2 pg Normal 25.9-33.9 [facility] Comment on above: Performed By: #### L AB980 #### [facility] (DEFAULT) [address] [address] Mean Cell Hgb Conc 31.4 g/dL Normal 31.4-35.9 [facility] Comment on above: Performed By: #### L AB980 #### [facility] (DEFAULT) [address] [address] Monocytes (Bld) [#/Vol] 0.47 10*3/uL Normal 0.22-0.87 [facility] Comment on above: Performed By: #### L AB980 #### [facility] (DEFAULT) [address] [address] Monocytes/100 WBC (Bld) 7.3 % Normal [facility] Comment on above: Performed By: #### L AB980 #### [facility] (DEFAULT) [address] [address] Nucleated RBC 0.0 /100 WBC Normal <=0.2 [facility] Comment on above: Performed By: #### L AB980 #### [facility] (DEFAULT) [address] [address] Platelet mean volume (Bld) [Entitic vol] 9.3 fL Normal 8.5-12.2 [facility] Comment on above: Performed By: #### L AB980 #### [facility] (DEFAULT) [address] [address] Platelets (Bld) [#/Vol] 370 10*3/uL Normal 150-393 [facility] Comment on above: Performed By: #### L AB980 #### [facility] (DEFAULT) [address] [address] RBC (Bld) [#/Vol] 4.63 10*6/uL Normal 3.91-5.04 [facility] Comment on above: Performed By: #### L AB980 #### [facility] (DEFAULT) [address] [address] RBC Distribution 14.0 % Normal 10.8-14.9 [facility] Comment on above: Performed By: #### L AB980 #### [facility] (DEFAULT) [address] [place] [address] Segs + Bands Auto 58.8 % Normal [facility] Comment on above: Performed By: #### L AB980 #### [facility] (DEFAULT) [address] [place] [address] Segs + Bands,Absolute Auto 3.81 K/uL Normal 1.64-7.28 [facility] Comment on above: Performed By: #### L AB980 #### [facility] (DEFAULT) [address] [place] [address] WBC (Bld) [#/Vol] 6.48 10*3/uL Normal 3.99-11.19 [facility] Comment on above: Performed By: #### L AB980 #### [facility] (DEFAULT) [address] [place] [address] FERRITINon 03-06-2024 Ferritin [Mass/Vol] 9.1 ng/mL Normal 7.3-270.7 [facility] Comment on above: Performed By: #### F ERIB, TSHQR #### [facility] (DEFAULT) [address] [place] [address] HEPATIC FUNCTION PANELon Albumin [Mass/Vol] 4.3 g/dL Normal 3.5-5.0 [facility] Comment on above: Performed By: #### H PAULO, IRBC #### [facility] (DEFAULT) [address] [place] [address] ALP [Catalytic activity/Vol] 87 U/L Normal 32-126 [facility] Comment on above: Performed By: #### H PAULO, IRBC #### [facility] (DEFAULT) [address] [place] [address] ALT [Catalytic activity/Vol] 28 U/L Normal 9-48 [facility] Comment on above: Performed By: #### H PAULO, IRBC #### [facility] (DEFAULT) [address] [place] [address] AST [Catalytic activity/Vol] 27 U/L Normal 10-39 [facility] Comment on above: Performed By: #### H PAULO, IRBC #### [facility] (DEFAULT) [address] [place] [address] Bilirubin [Mass/Vol] 0.4 mg/dL Normal <1.5 [facility] Comment on above: Performed By: #### H PAULO, IRBC #### [facility] (DEFAULT) [address] [place] [address] Bilirubin.indirect [Mass/Vol] 0.1 mg/dL Normal <0.3 [facility] Comment on above: Performed By: #### H PAULO, IRBC #### [facility] (DEFAULT) [address] [place] [address] Protein [Mass/Vol] 6.9 g/dL Normal 6.4-8.3 [facility] Comment on above: Performed By: #### H PAULO, IRBC #### [facility] (DEFAULT) [address] [place] [address] IRON/IRON BINDING/TRANSFERRI Non 03-06-2024 Iron [Mass/Vol] 55 ug/dL Normal 40-174 [facility] Comment on above: Performed By: #### H PAULO, IRBC #### [facility] (DEFAULT) [address] [place] [address] Iron Saturation 13 % Low 20-55 [facility] Comment on above: Performed By: #### H PAULO, IRBC #### [facility] (DEFAULT) [address] [place] [address] Total Iron Binding Capacity 440 mcg/dL High 250-425 [facility] Comment on above: Performed By: #### H PAULO, IRBC #### [facility] (DEFAULT) [address] [place] [address] Transferrin [Mass/Vol] 352 mg/dL Normal 200-400 [facility] Comment on above: Performed By: #### H , IRBC #### [facility] (DEFAULT) [address] [address] MOLECULAR STOOL PARASITE GUEVARA Cindy 03-06-2024 Cryptosporidium Parvum/Hominis By Pcr Negative Normal Negative [facility] Comment on above: Order Comment: Colle [...] Performed By: #### S CPBP #### [facility] (DEFAULT) [address] [address] Entamoeba Histolytica By Pcr Negative Normal Negative [facility] Comment on above: Order Comment: Colle [...] Performed By: #### S CPBP #### [facility] (DEFAULT) [address] [address] Giardia Lamblia By Pcr Negative Normal Negative [facility] Comment on above: Order Comment: Colle [...] Performed By: #### S CPBP #### [facility] (DEFAULT) [address] [address] TSH W/FT4 REFLEXon 4 TSH 1.986 uIU/mL Normal 0.550-4.780 [facility] Comment on above: Performed By: #### F ERIB, TSHQR #### [facility] (DEFAULT) [address] [address] VITAMIN D (25-HYDROXY,TOTAL) on 03-06-2024 25-OH Vitamin D Total 22.2 ng/mL Low 30.0-100.0 [facility] Comment on above: Order Comment: Vitam in D values have been shown to be falsely decreased in lipemic samples and should be interpreted with caution. Result Comment: <10 Deficiency 10-29 Insufficiency 30-100 Optimal Level >100 Possible Toxicity Performed By: #### D 25OH #### [facility] (DEFAULT) [address] [address] BACTERIAL VAGINOSIS NAATon 0 02-27-2024 Interpretation and review of laboratory results Normal [facility] Lactobacillus crispatus+gasseri+riri senii + Gardnerella vaginalis + Atopobium vaginae rRNA JOSÉ MIGUEL+probe Ql (Vag fld) Negative Negative for bacterial vaginosis [facility] Lactobacillus crispatus+gasseri+riri senii + Gardnerella vaginalis + Atopobium vaginae rRNA JOSÉ MIGUEL+probe Ql (Vag fld) Negative Normal Negative for bacterial vaginosis [facility] Comment on above: Order Comment: Speci men Type: SWABOrdering Facility: [facility] Address: [facility] [place] [address] Performed By: #### B VAMP, CVTV ####[facility] LABCLIA [id number] [place] [address] [place] BETY/TRICHOMONAS NAATon 0 02-27-2024 C. glabrata RNA JOSÉ MIGUEL+probe Ql (Vag fld) Negative Negative for Bety glabrata [facility] Bety sp DNA JOSÉ MIGUEL+probe Ql (Vag fld) Negative Negative for Bety species [facility] Interpretation and review of laboratory results Normal [facility] T. vaginalis DNA JOSÉ MIGUEL+probe Ql (Unsp spec) Negative Negative for Trichomonas vaginalis by amplification [facility] C. glabrata RNA JOSÉ MIGUEL+probe Ql (Vag fld) Negative Normal Negative for Bety glabrata [facility] Comment on above: Order Comment: Speci men Type: SWABOrdering Facility: [facility] Address: [address] [place] [address] Performed By: #### B VAMP, CVTV ####[facility] LABCLIA [id number] [place] [address] [place] Bety sp DNA JOSÉ MIGUEL+probe Ql (Vag fld) Negative Normal Negative for Bety species [facility] Comment on above: Order Comment: Speci men Type: SWABOrdering Facility: [facility] Address: [address] [place] [address] Performed By: #### B VAMP, CVTV ####[facility] LABCLIA [id number] [address] [place] T. vaginalis DNA JOSÉ MIGUEL+probe Ql (Unsp spec) Negative Normal Negative for Trichomonas vaginalis by amplification [facility] Comment on above: Order Comment: Speci men Type: SWABOrdering Facility: [facility] Address: [address] [place] [address] Performed By: #### B VAMP, CVTV ####[facility] LABCLIA [id number] [address] [place] CNOVon 02-27-2024 CNOV Office Visit (SHERON ) MARY LEAL ([id number]) 1970 F Date Time Provider Department 02/27/24 10:00 AM FLOWER LOPEZ During your visit today, we recorded the following information about you: Pulse Blood pressure Weight Height 62/minute 146/93 69.9 kg 1.626 Flower Zhao, DANN.KWESI 02/27/2024 10:40 AM Signed Female Pelvic Medicine [...] intermittently- somewhat improved. She has worked with [employer] rep re: interstim setting, now on program [...] you received about pain medications helpful? Yes Graphic Production Artist offered:Patient declines OBJECTIVE: BP 146/93 Pulse 62 [...] Clear 4 (more content not included)... Normal [facility] UA DIP, URINE (POC)on 2023 BILIRUBIN UA (POCT) Negative Negative [facility] CLARITY UA (POCT) Clear [facility] COLOR UA (POCT) Yellow [facility] GLUCOSE UA (POCT) Negative Negative mg/dL [facility] Hemoglobin Ql (U) Negative Negative [facility] KETONE UA (POCT) Negative Negative mg/dL [facility] LEUKOCYTES UA (POCT) Negative Negative [facility] NITRITE UA (POCT) Negative Negative [facility] PH UA (POCT) 5.5 4.5 - 8.0 [facility] Protein Ql (U) Negative Negative mg/dL [facility] SPECIFIC GRAVITY UA (POCT) >=1.030 1.005 - 1.030 [facility] UROBILINOGEN UA (POCT) 0.2 Normal E.U./dL [facility] Location:[address], [address] [place] [address] POINT OF CARE [facility] 29on 02-07-2024 29 Addended by: NATHANAEL MENDOZA on: 02/07/2024 12:01 PM Modules accepted: Orders [facility] Follow-Upon 02-07-2024 Follow-Up [id number] Darrian Leal 1970 F Date Provider Department Center 02/07/2024 PAULINE SANTACRUZ [facility] SLEEP [facility] No family history on file Level of Service:95446 [place] OFFICE/OUTPATIENT ESTABLISHED HIGH MDM 40 MIN Reason for Visit and Comments: Follow-up [859541] - Pt is here to activate her [employer] PAP. [facility] Hussain 01-27-2024 KWESIN Telephone (GYNMN) MARY LEAL ([id number]) 1970 F Date Time Provider Department 01/27/24 RADHA DUNHAM GYNMN During your visit today, we recorded the following information about you: Radah Dunham MD 01/27/2024 10:54 AM Signed Pattern Illustrator Resident Telephone Encounter 01/27/2024 10:44 AM Call [...] Discussed with Dr. Mullins, Urogyn fellow physician vocational rehabilitation counselor. Radha Dunham MD Obstetrics and Gynecology, PGY1 [...] PM Signed Received fax regarding letter from [employer] stating that on 01/29/24 the patient reported that they felt a zapping sensation in their rectal nerve . Asking that provider answer questions listed on document. Document scanned into [employer]. Kelli Seth Sandra K, RN 03/15/2024 11:27 AM Signed Called pt. Verified name/ Verified requested information and form faxed to [employer] @ [phone] Lili Matias RN March 15, 2024 11:27 [...] idiopathic cons (more content not included)... Normal [facility] ANES POSTPROC EVALon 024 ANES POSTPROC EVAL HNO ID: [id number] Author: BONI MURILLO MD Service: ? Author Type: Anesthesiologist Type: Anesthesia Postprocedure Evaluation Filed: 01/26/2024 09:51 Note Text: POST ANESTHESIA EVALUATION NOTE : 1970 Procedure Summary Date: 01/26/24 Room / Location: [address] [facility] Anesthesia Start: 727 Anesthesia Stop: 09 Procedures: INSRT NSTIM GENERATOR BLADDER W/ POCKET [...] January 26, 2024 TIME: 9:51 AM CSN: [id number] Normal [facility] ANES PRE-OPon 01-26-2024 ANES PRE-OP HNO ID: [id number] Author: BONI MURILLO MD Service: ? Author [...] and consent discussed: yes. Patient / Responsible Constitution Party agrees to proceed: yes Patient / [...] January 26, 2024 TIME: 7:06 AM CSN: [id number] Normal [facility] BRIEF OP NOTon 01-26-2024 BRIEF OP NOT HNO ID: [id number] Author: SOFIYA MULLINS MD Service: Urogynecology Author Type: Fellow Type: Brief Op Note Filed: 01/26/2024 08:44 Note Text: BRIEF OPERATIVE / PROCEDURE NOTE LOG ID: [id number] Surgery/Procedure Date: 01/26/2024 Incision/Procedure Start Time: 7:54 AM Incision Close/Procedure End Time: 8:36 AM Surgeon(s)/Procedurali st(s) and Standards Analyst(s): Surgeon(s) and Role: * Pam Wang MD [...] Implant Name Type Inv. Item Serial No. Trash Collector Lot No. LRB No. Used Action LEAD INTRSTIM MRI 28CM - [id number] Lead LEAD INTRSTIM MRI 28CM [employer] [id number] Left 1 Implanted INTERSTIM X RECHARGE FREE NEUROSTIMULATOR - [id number] Stimulator INTERSTIM X RECHARGE FREE NEUROSTIMULATOR [id number] [employer] Left 1 Implanted Pre-Op/Pre-Procedure Diagnosis: urinary retention, urgency, frequency and nocturia Post-Op/Post-Procedure Diagnosis: same SIGNATURE: Sofiya Mullins MD DATE: January 26, 2024 PATIENT NAME: Mary Leal TIME: 8:42 AM PAGER/CONTACT #: Pager [phone] [facility] HISTORY PHYSICALon HISTORY PHYSICAL HNO ID: [id number] Author: SOFIYA MULLINS MD Service: Urogynecology Author [...] Rfl: , 01/25/2024 at 0900 ARIPiprazole monohydrate (ABILIFSteven MAINTENA) 300 mg sers injection, Inject 300 [...] VTE Prophylaxis/An (more content not included)... Normal [facility] NURSING PROGon 01-26-2024 NURSING PROG HNO ID: [id number] Author: DAI CAMPUZANO, RN Service: Nursing Author Type: Registered Nurse Type: Nursing Progress Note Filed: 01/26/2024 09:51 Note Text: 0923 Paged PACU Resident 2-30 Elvis- Could you please place an order for a one time dose of her homegoing ox[place] [phone] Paged PACU Resident M2- Elvis- Could you please place an order for a one time dose of her homegoing oxycodone prescription? Dai GAMBINO [id number] Normal [facility] NURSING PROG HNO ID: [id number] Author: CATRACHO PIERRE, RN Service: ? Author Type: Registered Nurse Type: Nursing Progress Note Filed: 01/26/2024 06:41 Note Text: Nursing Progress Note Topic of Note: Daily Note PATIENT NAME: Mary Leal Patient Location: Main - Periop OR/Main - Periop OR Room: Main - Periop OR ([id number]) PAGE SENT: Akiko Wang and Resident medical certification specialist-Pt in M2 Mary Leal will need informed consent and H AND P for surgery this morning. Thanks, Catracho [id number] This note was completed by: Catracho Pierre [facility] OPERATIVE NOon 01-26-2024 OPERATIVE NO HNO ID: [id number] Author: PAM WANG MD Service: Urogynecology Author Type: Physician Type: Operative Report Filed: 01/29/2024 10:50 Note Text: OPERATIVE/PROCEDURE REPORT LOG ID: [id number] Surgery/Procedure Date: 01/26/2024 Incision/Procedure Start Time: 7:54 AM Incision Close/Procedure End Time: 8:36 AM Surgeon(s)/Procedurali st(s) and Standards Analyst(s): Surgeon(s) and Role: * Pam Wang MD [...] Implant Name Type Inv. Item Serial No. Trash Collector Lot No. LRB No. Used Action LEAD INTRSTIM MRI 28CM - [id number] Lead LEAD INTRSTIM MRI 28CM [employer] [id number] Left 1 Implanted INTERSTIM X RECHARGE FREE NEUROSTIMULATOR - [id number] Stimulator INTERSTIM X RECHARGE FREE NEUROSTIMULATOR [id number] [employer] Left 1 Implanted Pre-Op/Pre-Procedure Diagnosis: [...] the S3 foramen until the marker was usp through the bone. The sacral lead was [...] and impedances (more content not included)... Normal [facility] HISTORY PHYSICALon HISTORY PHYSICAL HNO ID: [id number] Author: MAX MARROQUIN PA-C Service: ? Author Type: Physician Standards Analyst Type: H&P Filed: 01/25/2024 09:25 Note Text: PREANESTHESIA CONSULT CLINIC TELEHEALTH VISIT SERVICE DATE: 01/25/2024 SERVICE TIME: 9:02 AM Patient has been identified by name and date of : Yes Reason for contact: PACC visit Accompanied by: Self This is a virtual visit using [employer] Video Visit. It required patient-provider interaction for the medical decision making as documented below. I have communicated my name and active licensure. The patient's identity and physical location were verified at the time of this visit. Either the patient or their legal account representative has been informed of the risks [...] am with a small sip of water [place] Activity Status Index: METS: Walk a block or two on level ground (2.75 METs) Climb a flight of stairs or walk up a hill (5.50 METs) DASI Score: 8.25 Patient denies any chest pain or undue shortness of breath with the above physical activity. Clinical Frailty Scale: 2. Well STOP-Bang Score: STOP-Bang Score: (CHUCKIE going to using inspire to get activated 02/07/2024 ) [id number] Score: Age: <65 Sex: female CHF history: No Hypertension history: Yes Stroke/TIA/thromboembo lism history: No Vascular disease history: No Diabetes history: No [id number] Score: 2 ANESTHESIA FINDINGS: Intubation History: No [...] PAST SURGICAL HIST (more content not included)... [facility] 12-25-2023 CNPN Telephone (GYNMN) MARY LEAL ([id number]) 1970 F Date Time Provider Department 12/25/23 PAM WANG GYNTX During your visit today, we recorded the following information about you: [facility] 12/25/2023 2:54 PM Signed Reason for call: [...] distance health visit in this department: 10/25/2021 Restaurant General Manager, Nurse Next visit in this department: 01/25/2024 [...] - Fully Assessed Reason for Visit: Question [9217] Prescriptions as of 12/25/2023 - ARIPiprazole monohydrate [...] Status:Closed by STACIE GONZALEZ on 12/25/23 Normal [facility] BASIC METABOLIC PANLon 12-20 Anion gap [Moles/Vol] 6 mmol/L Normal 5-15 [facility] Comment on above: Performed By: #### B MP #### [facility] ([id number]) [address], [address] [place] [address] Calcium [Mass/Vol] 9.3 mg/dL Normal 8.5-10.5 [facility] Comment on above: Performed By: #### B MP #### [facility] ([id number]) [address], [address] [place] [address] Chloride [Moles/Vol] 105 mmol/L Normal 98-109 [facility] Comment on above: Performed By: #### B MP #### [facility] ([id number]) [address] [place] [address] CO2 [Moles/Vol] 28 mmol/L Normal 22-32 [facility] Comment on above: Performed By: #### B MP #### [facility] ([id number]) [address], [address] [place] [address] Creatinine [Mass/Vol] 0.60 mg/dL Normal 0.40-1.00 [facility] Comment on above: Result Comment: METH OD TRACEABLE TO IDMS STANDARD Performed By: #### B MP #### [facility] ([id number]) [address], [address] [place] [address] eGFR (CKD-EPI) NON-RACE DEPENDENT >90 Normal >59 [facility] Comment on above: Result Comment: Reported eGFR is based on the CKD-EPI 2020 equation that does not use a race coefficient. Performed By: #### B MP #### [facility] ([id number]) [address], [address] [place] [address] Glucose [Mass/Vol] 85 mg/dL Normal 65-99 [facility] Comment on above: Performed By: #### B MP #### [facility] ([id number]) [address] [place] [address] Potassium [Moles/Vol] 4.2 mmol/L Normal 3.5-5.0 [facility] Comment on above: Performed By: #### B MP #### [facility] ([id number]) [address], [address] [place] [address] Sodium [Moles/Vol] 139 mmol/L Normal 134-146 [facility] Comment on above: Performed By: #### B MP #### [facility] ([id number]) [address] [place] [address] Urea nitrogen [Mass/Vol] 14 mg/dL Normal 5-23 [facility] Comment on above: Performed By: #### B MP #### [facility] ([id number]) [address] [place] [address] Basic Metabolic Panelon 12-07 Anion gap [Moles/Vol] 6 mmol/L 5 - 15 mmol/L [facility] Calcium [Mass/Vol] 9.3 mg/dL 8.5 - 10. 5 mg/dL [facility] Chloride [Moles/Vol] 105 mmol/L 98 - 10 9 mmol/L [facility] CO2 [Moles/Vol] 28 mmol/L 22 - 32 mmol/L [facility] Creatinine [Mass/Vol] 0.60 mg/dL 0.40 - 1.00 mg/dL [facility] Comment on above: METHOD TRACEABLE TO [facility] STANDARD eGFR (CKD-EPI)non-race dependent - PINF [facility] Comment on above: Reported eGFR is based on the CKD-EPI 2020 equation that does not use a race coefficient. Glucose [Mass/Vol] 85 mg/dL 65 - 99 mg/dL [facility] Potassium [Moles/Vol] 4.2 mmol/L 3.5 - 5.0 mmol/L [facility] Sodium [Moles/Vol] 139 mmol/L 134 - 146 mmol/L [facility] Urea nitrogen [Mass/Vol] 14 mg/dL 5 - 23 mg/dL [facility] CNPNon 11-27-2023 CNPN Telephone (WCTRMN) MARY LEAL ([id number]) 1970 F Date Time Provider Department 11/27/23 PAM WANG [facility] During your visit today, we recorded the following information about you: Amber Trimble 11/27/2023 9:32 AM Signed Patient: Mary Leal : 1970 Provider: Pam Wang MD Caller Phone #: [phone] (home) [phone] (cell) Reason for call: boyfriend pulled out [...] interstim stages 1/2 in the OR. MD Denver Delcidisten reports the PNE stimulator stopped connecting so Kim of [employer] said to remove it. She removed the [...] urge [N39.41] Order(s):SURGICAL REQUEST - ELECTIVE (06/2020) [[id number]] Order #: [id number]: 1 Prescriptions as of 11/27/2023 - ARIPiprazole [...] Encounter Status:Closed by PAM WANG on 11/27/23 [facility] Hussain 11-25-2023 CNPN Telephone (GYNMN) MARY LEAL ([id number]) 1970 F Date Time Provider Department 11/25/23 RADHA DUNHAM During your visit today, we recorded the following information about you: Radha Dunham MD 11/25/2023 2:43 PM Signed Pattern Illustrator Resident Telephone Encounter 11/25/2023 2:40 PM Call [...] adequately. Discussed with Dr. Mullins, Urogyn fellow vocational rehabilitation counselor. Radha Dunham MD Obstetrics and Gynecology, PGY1 Allergies As of Date: 11/25/2023 Noted Allergy Reaction RISPERIDONE 07/27/2021 5 - Intolerance Comments: Breast discharge POISON BRENDA EXTRACT 04/06/2023 2 - Rash Date Reviewed: 10/10/2023 Reviewed by: José Luis Thorpe RN - Fully Assessed Reason for Visit: Patient Question [5095] Prescriptions as of 11/25/2023 - ARIPiprazole monohydrate [...] Encounter Status:Closed by RADHA DUNHAM on 11/25/23 Primitivo [facility] Teodoro 11-21-2023 CNOV Office Visit (SHERON ) MARY LEAL ([id number]) 1970 F Date Time Provider Department 11/21/23 [...] All medical record entries made by the rkistaibe were at my direction and in my [...] Voiding dysfunction [N39.8] Order(s):UA DIP, URINE (POC) [[id number]] Order #: [id number] #:[id number] [] ondansetron orally disintegrating 4 mg tab(s) [...] (GAS RE (more content not included)... Normal [facility] CNOVon 10-10-2023 CNOV Office Visit (SHERON ) MARY LEAL ([id number]) 1970 F Date Time Provider Department 10/10/23 2:30 PM PAM WANG During your visit today, we recorded the following information about you: Blood pressure 102/60 Pam Wang MD 10/12/2023 9:42 AM Signed Female Pelvic Medicine AND Reconstructive Surgery Follow-Up Mary D Elvis is a 53 year old female, who presents for a follow-up of urinary urgency, urinary frequency. VV w/ Dr. Wang 08/07/23 Impression: Maryjonathan Leal is a 53 year old female [...] PFSH obtained by others. Pam Wang MD Graphic Production Artist offered: Patient declines. OBJECTIVE: BP 102/60 General: [...] would like to move forward with PNE. [employer] packet given to patient today to review. [...] which included preparing to see the patient, [id number] patient care, completing clinical (more content not included)... Normal [facility] Hussain 09-12-2023 MARIAN Telephone (BLAISE) MARY LEAL ([id number]) 1970 F Date Time Provider Department 09/12/23 [...] which included preparing to see the patient, arko-ba-idfv patient care, completing clinical documentation, obtaining and/or [...] Office will call to schedule cystoscopy. Urogynecology [facility] Main provided: Pam Wang Staff [...] sling procedure [Z98.890] Order(s):CYSTOSCOPY [facility] [[id number]] Order #: [id number] Prescriptions as of 09/12/2023 - atenolol (TENORMIN) [...] Take 1,000 (more content not included)... Normal [facility] CNOVon 09-11-2023 CNOV Office Visit (UROSMN ) MARY LEAL ([id number]) 1970 F Date Time Provider Department 09/11/23 [...] RN 09/11/2023 11:37 AM Signed [facility] URODYNAMICS LAB URODYNAMIC [...] allergy: No Females- Is patient : No Graphic Production Artist offered:Patient declines B/O UA: YES DIP: UROFLOWMETRY [...] MD 09/11/2023 1:18 PM Signed [facility] FOR FEMALE [...] Jairon Lai MD Referring Provider: PAM WANG [[id number]] Allergies As of Date: 09/11/2023 Noted Allergy [...] milliliters subcut (more content not included)... Normal [facility] BASIC METABOLIC PANELon 10-0 Anion gap [Moles/Vol] 1 mmol/L Low 8-12 [facility] [employer] Comment on above: Performed By: #### 4 [id number], [id number], [id number], [id number] #### [address] [place] [address] [place] Calcium [Mass/Vol] 9.2 mg/dL Normal 8.4-10.4 [facility] [employer] Comment on above: Performed By: #### 4 [id number], [id number], [id number], [id number] #### [address] [place] [address] [place] Chloride [Moles/Vol] 105 mmol/L Normal 96-109 [facility] [employer] Comment on above: Performed By: #### 4 [id number], [id number], [id number], [id number] #### [address] [place], [place] [address] CO2 [Moles/Vol] 32 mmol/L High 22-30 [facility] Comment on above: Performed By: #### 4 [id number], [id number], [id number], [id number] #### [address] [place] [address] [facility] Creatinine [Mass/Vol] 0.67 mg/dL Normal 0.52-1.04 [facility] Comment on above: Performed By: #### 4 [id number], [id number], [id number], [id number] #### [address] [place] [address] GLOMERULAR FILTRATION RATE ML/MIN/1.73 SQ M.PREDICTED >90.0 Normal >=60.0 [facility] Comment on above: Result Comment: eGFR [...] Kidney Int Suppl.2013;3:1-150 Performed By: #### 4 [id number], [id number], [id number], [id number] #### [address] [place] [address] [facility] Glucose [Mass/Vol] 104 mg/dL High 65-100 [facility] Comment on above: Performed By: #### 4 [id number], [id number], 75740975, [id number] #### [address] [place] [address] [facility] Potassium [Moles/Vol] 4.6 mmol/L Normal 3.6-5.1 [facility] [employer] [facility] Comment on above: Performed By: #### 4 [id number], [id number], 79063419, [id number] #### [address] Sodium [Moles/Vol] 138 mmol/L Normal 135-147 [facility] Comment on above: Performed By: #### 4 [id number], [id number], [id number], [id number] #### [address] Urea nitrogen [Mass/Vol] 16 mg/dL Normal 8-26 [facility] [employer] Comment on above: Performed By: #### 4 0610682, [id number], 77945101, [id number] #### [address] Basic metabolic panel aka Ch em 808-12-2023 Anion gap [Moles/Vol] 1 mmol/L Low 8 - 12 mmol/L [facility] [employer] Calcium [Mass/Vol] 9.2 mg/dL 8.4 - 10. 4 mg/dL [facility] [employer] Calcium hydrogen phosphate dihydrate crystals LM Ql (Urine sed) 16 mg/dL 8 - 26 mg/dL [facility] [employer] Chloride [Moles/Vol] 105 mmol/L 96 - 10 9 mmol/L [facility] [employer] CO2 (BldMV) [Moles/Vol] 32 mmol/L High 22 - 30 mmol/L [facility] Creatinine [Mass/Vol] 0.67 mg/dL 0.52 - 1.04 mg/dL [facility] GFR/1.73 sq M.predicted MDRD (S/P/Bld) [Vol rate/Area] - PINF [facility] Comment on above: eGFR calculation bas [...] 104 mg/dL High 65 - 100 mg/dL naaptol Interpretation and review of laboratory results Abnormal [facility] Potassium [Moles/Vol] 4.6 mmol/L 3.6 - 5.1 mmol/L [facility] Sodium [Moles/Vol] 138 mmol/L 135 - 147 mmol/L [facility] CBC AND DIFFERENTIALon 08-12 ABSOLUTE BASOPHIL 0.0 x10*3/uL Normal 0.0-0.1 [facility] Comment on above: Performed By: #### 4 [id number] #### [address] ABSOLUTE EOSINOPHIL 0.1 x10*3/uL Normal 0.1-0.3 [facility] Comment on above: Performed By: #### 4 [id number] #### [address] ABSOLUTE IMMATURE GRANULOCYTES 0.0 x10*3/uL Normal 0.0-0.1 [facility] Comment on above: Performed By: #### 4 [id number] #### [address] ABSOLUTE LYMPH 1.6 x10*3/uL Normal 1.2-3.3 [facility] Comment on above: Performed By: #### 4 [id number] #### [address] ABSOLUTE MONO 0.3 x10*3/uL Normal 0.2-0.6 [facility] Comment on above: Performed By: #### 4 [id number] #### [address] ABSOLUTE NEUTROPHIL 3.1 x10*3/uL Normal 2.4-6.6 [facility] Comment on above: Performed By: #### 4 [id number] #### [address] Basophils/100 WBC (Bld) 0.8 % Normal [facility] Comment on above: Performed By: #### 4 [id number] #### [address] Eosinophils/100 WBC (Bld) 2.7 % Normal [facility] Comment on above: Performed By: #### 4 [id number] #### [address] Erythrocyte distribution width (RBC) [Ratio] 13.0 % Normal 11.5-14.5 [facility] Comment on above: Performed By: #### 4 [id number] #### [address] Hematocrit (Bld) [Volume fraction] 37.5 % Normal 33.6-46.8 [facility] Comment on above: Performed By: #### 4 [id number] #### [address] Hemoglobin (Bld) [Mass/Vol] 11.8 g/dL Normal 11.7-15.8 [facility] Comment on above: Performed By: #### 4 [id number] #### [address] Immature granulocytes/100 WBC (Bld) 0.4 % Normal [facility] Comment on above: Performed By: #### 4 [id number] #### [address] Lymphocytes/100 WBC (Bld) 31.5 % Normal [facility] Comment on above: Performed By: #### 4 [id number] #### [address] MCH (RBC) [Entitic mass] 26.5 pg Low 27.5-32.3 [facility] Comment on above: Performed By: #### 4 [id number] #### [address] MCHC (RBC) [Mass/Vol] 31.5 g/dL Normal 30.7-35.5 [facility] Comment on above: Performed By: #### 4 [id number] #### [address] MCV (RBC) [Entitic vol] 84.3 fL Normal 80.2-99 [facility] Comment on above: Performed By: #### 4 [id number] #### [address] Monocytes/100 WBC (Bld) 5.4 % Normal [facility] Comment on above: Performed By: #### 4 [id number] #### [address] Neutrophils/100 WBC (Bld) 59.2 % Normal [facility] Comment on above: Performed By: #### 4 [id number] #### [facility] [address] [place] [address] [place] NUCLEATED RED BLOOD CELLS AUTO 0.0 % Normal 0.0-1.0 [facility] Comment on above: Performed By: #### 4 [id number] #### [address] PLATELET COUNT 299 x10*3/uL Normal 150-400 [facility] Comment on above: Performed By: #### 4 [id number] #### [address] RED BLOOD CELL COUNT 4.45 x10*6/uL Normal 3.60-5.20 [facility] Comment on above: Performed By: #### 4 [id number] #### [address] WHITE BLOOD CELLS 5.2 x10*3/uL Normal 4.3-10.3 [facility] Comment on above: Performed By: #### 4 [id number] #### [address] CBC with differentialOrdered By: Background Lab on 08-12-2023 Absolute Immature Granulocytes 0.0 [facility] Age [Time] 84.3 fL 80.2 - 99 fL [facility] Age [Time] 26.5 pg Low 27.5 - 32.3 pg [facility] Age [Time] 31.5 g/dL 30.7 - 35.5 g/dL [facility] B. burgdorferi IgM IB Ql (CSF) 31.5 % [facility] Basophils (Bld) [#/Vol] 0.0 10*3/uL [facility] Basophils/100 WBC (Body fld) 0.8 % [facility] Eosinophils (Bld) [#/Vol] 1.6 10*3/uL [facility] Eosinophils (Bld) [#/Vol] 0.3 10*3/uL [facility] Eosinophils (Bld) [#/Vol] 0.1 10*3/uL [facility] Eosinophils/100 WBC (Bld) 2.7 % [facility] Erythrocyte distribution width (RBC) [Ratio] 13.0 % 11.5 - 14.5 % [facility] Hematocrit (Bld) [Volume fraction] 37.5 % 33.6 - 46.8 % [facility] Hexanoylglycine (U) [Moles/Vol] 11.8 g/dL 11.7 - 15.8 g/dL [facility] Immature granulocytes/100 WBC (Bld) 0.4 % [facility] Interpretation and review of laboratory results Abnormal [facility] Monocytes/100 WBC (Bld) 5.4 % [facility] Neurotensin (P) [Mass/Vol] 59.2 % [facility] Neutrophils (Bld) [#/Vol] 3.1 10*3/uL [facility] Nucleated RBC/100 WBC (Bld) [Ratio] 0.0 % 0.0 - 1.0 % [facility] Platelets (Bld) [#/Vol] 299 10*3/uL [facility] RBC (Bld) [#/Vol] 4.45 10*6/uL [employer] [facility] WBC (Bld) [#/Vol] 5.2 10*3/uL [employer] [facility] CT ABDOMEN PELVIS WITH IV CO [...] 20 RAC Omni 300 100 ml Normal [facility] HEPATIC FUNCTION PANELon Albumin [Mass/Vol] 4.0 g/dL Normal 3.5-5.0 [facility] Comment on above: Performed By: #### 4 [id number], [id number], [id number], [id number] #### [facility] [address] [place] [address] ALK PHOS 104 U/L Normal 24-126 [facility] Comment on above: Performed By: #### 4 2906344, 26388661, 59497073, [id number] #### [address] [address] [facility] ALT [Catalytic activity/Vol] 50 U/L High 4-35 [facility] Comment on above: Performed By: #### 4 7032729, 46633932, 94931042, [id number] #### [address] [address] [facility] AST [Catalytic activity/Vol] 59 U/L High 3-47 [facility] Comment on above: Performed By: #### 4 5168586, 73433597, 78033227, [id number] #### [address] [address] [facility] Bilirubin [Mass/Vol] 0.1 mg/dL Low 0.2-1.6 [facility] Comment on above: Performed By: #### 4 [id number], 82335361, [id number], [id number] #### [facility] [address] [place] [address] [facility] Bilirubin.indirect [Mass/Vol] 0.1 mg/dL Normal <=0.5 [facility] Comment on above: Performed By: #### 4 [id number], 83040566, 28034551, [id number] #### [address] [address] [facility] Protein [Mass/Vol] 6.6 g/dL Normal 6.3-8.2 [facility] Comment on above: Performed By: #### 4 2508789, [id number], 52090227, [id number] #### [facility] [address] [place] [address] [facility] Hepatic Function Panelon Albumin (Syn fld) [Mass/Vol] 4.0 g/dL 3.5 - 5.0 g/dL [facility] Aldosterone (U) [Mass/Vol] 104 U/L 24 - 126 U/L [facility] ALT [Catalytic activity/Vol] 50 U/L High 4 - 35 U/L [facility] AST [Catalytic activity/Vol] 59 U/L High 3 - 47 U/L [facility] Bilirubin [Mass/Vol] 0.1 mg/dL Low 0.2 - 1 .6 mg/dL [facility] Bilirubin.conjugated [Mass/Vol] 0.1 mg/dL NINF - 0.5 mg/dL [facility] Protein [Mass/Vol] 6.6 g/dL 6.3 - 8.2 g/dL [facility] LIPASEon 08-12-2023 Lipase [Catalytic activity/Vol] 11 U/L Low 23-300 [facility] Comment on above: Performed By: #### 4 [id number], [id number], [id number], [id number] #### [place] [id number] Lipaseon 08-12-2023 Lipase [Catalytic activity/Vol] 11 U/L Low 23 - 300 U/L [facility] No Panel Informationon 08-12 Extra Tube Hold for add-ons. [facility] Interpretation and review of laboratory results Abnormal [facility] POCT ED/FC/GSC Urine PregOrd ered By: Della Hays on 08-12-2023 Beta HCG ( test) Ql (U) Negative [facility] Interpretation and review of laboratory results Normal [facility] Meat Manager Acceptable yes [facility] TROPONIN Ion 08-12-2023 Troponin I.cardiac [Mass/Vol] ng/mL Normal <=0.033 [facility] Comment on above: Result Comment: Nega tive: No detectable troponin-I. Performed By: #### 4 [id number] #### [address] TROPONIN I SERIESon 08-12-20 Troponin I.cardiac [Mass/Vol] ng/mL Normal <=0.033 [facility] Comment on above: Result Comment: Nega tive: No detectable troponin-I. Performed By: #### 4 [id number], 40500990, [id number], [id number] #### [address] Troponin I (One time)on Interpretation and review of laboratory results Normal [facility] Troponin I.cardiac [Mass/Vol] ng/mL [facility] ng/mL [facility] Comment on above: Negative: No detectable troponin-I. [facility] Troponin I - Series (X 3)on 08-12-2023 Interpretation and review of laboratory results Normal [facility] Troponin I.cardiac [Mass/Vol] ng/mL NINF - 0.033 ng/mL [facility] Comment on above: Negative: No detectable troponin-I. [facility] URINALYSIS WITH REFLEX CULTU REon 08-12-2023 Appearance (U) Clear Normal [facility] Comment on above: Performed By: #### 4 [id number] #### [address] BILIRUBIN UA Negative Normal Negative [facility] Comment on above: Performed By: #### 4 [id number] #### [address] Color (U) Yellow Normal [facility] Comment on above: Performed By: #### 4 [id number] #### [address] Glucose Ql (U) Negative Normal Negative [facility] Comment on above: Performed By: #### 4 [id number] #### [address] [address] Ketones Ql (U) Negative Normal Negative [facility] Comment on above: Performed By: #### 4 [id number] #### [address] [address] [place] LEUKOESTERASE Negative Normal Negative [facility] Comment on above: Performed By: #### 4 [id number] #### [address] [address] [place] MUCOUS-URINE Occasional Normal [facility] Comment on above: Performed By: #### 4 [id number] #### [address] [address] [place] Nitrite Ql (U) Negative Normal Negative [facility] Comment on above: Performed By: #### 4 [id number] #### [address] OCCULT BLD Negative Normal Negative [facility] Comment on above: Performed By: #### 4 [id number] #### [address] PH, URINE 5.0 Normal [facility] Comment on above: Performed By: #### 4 [id number] #### [address] Protein Ql (U) Negative Normal Negative [facility] Comment on above: Performed By: #### 4 [id number] #### [address] RBC LM.HPF (Urine sed) [#/Area] /[HPF] Normal <=5 [facility] Comment on above: Performed By: #### 4 [id number] #### [address] SPECIFIC GRAVITY, URINE 1.025 Normal [facility] Comment on above: Performed By: #### 4 [id number] #### [address] SQUAMOUS EPI CELLS 51 /LPF [facility] Comment on above: Performed By: #### 4 [id number] #### [address] UROBILINOGEN UA Negative Normal <2.0 [facility] Comment on above: Performed By: #### 4 [id number] #### [address] WBC LM.HPF (Urine sed) [#/Area] 2 /[HPF] Normal <=5 [facility] Comment on above: Performed By: #### 4 [id number] #### [address] Urinalysis complete W Reflex Culture panel (U)on 08-12-2023 Acetone [Mass/Vol] Negative Negative [facility] Appearance (Body fld) Clear [facility] Bilirubin Ql (U) Negative Negative [facility] Color (Stone) Yellow [facility] G6PD (RBC) [Catalytic activity/Vol] Negative Negative [facility] Hemoglobin Ql (U) NINF [facility] Leukocyte esterase Test strip Ql (U) Negative Negative [facility] Mucor racemosus IgE Qn (S) Occasional /LPF [facility] Nitrite Test strip (U) [Mass/Vol] Negative Negative [facility] pH (Migue fld) 5.0 [facility] Protein (U) [Mass/Vol] Negative Negative [facility] [place] IgE Qn (S) Negative Negative [employer] [facility] Specific gravity (U) [Rel density] 1.025 [facility] Spherocytes LM Ql (Bld) 51 /LPF [facility] Urobilinogen Qn (U) Negative NINF - 2.0 [facility] WBC (U) [#/Vol] 2 /uL NINF [facility] CNOVon 07-31-2023 CNOV Office Visit (SHERON ) MARY LEAL ([id number]) 1970 F Date Time Provider Department 07/31/23 2:30 PM NELSY CHÁVEZ During your visit today, we recorded the following information about you: Pulse Blood pressure Weight Height 76/minute 136/96 69.9 kg 1.626 m Nelsy Chávez APRN.CHEERLEADING COACH 07/31/2023 5:35 PM Signed Female Pelvic Medicine [...] new Pain: no Abnormal 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 She has no history of an abnormal mammogram with cysts on US LMP: No LMP recorded. Patient has had a hysterectomy.; Menopause 3 years ago; hysterectomy in 2015: Menstrual history: NA; Deliveries: I have confirmed and edited as necessary, the PFSH obtained by others. Nelsy Chávez APRN.CHEERLEADING COACH Graphic Production Artist offered: Patient declines. OBJECTIVE: There were no [...] for now d/t side effects Nelsy Chávez, DANN.KWESI I spent a total of 45 minutes on the date of the service which included preparing to see the patient, bfrn-ev-chis patient care, completing clinical documentation, performing a [...] [R35.0] Nocturia [R35.1] Order(s):UA DIP, URINE (POC) [[id number]] Order #: [id number] #:[id number] URODYNAMICS [facility] [[id number]] Order #: [id number] Prescriptions as of 07/31/2023 - atenolol (TENORMIN) [...] 10 m (more content not included)... Normal [facility] UA DIP, URINE (POC)on 2022 BILIRUBIN UA (POCT) Negative Negative [facility] CLARITY UA (POCT) Clear [facility] COLOR UA (POCT) Yellow [facility] GLUCOSE UA (POCT) Negative Negative mg/dL [facility] Hemoglobin Ql (U) Negative Negative [facility] KETONE UA (POCT) Negative Negative mg/dL [facility] LEUKOCYTES UA (POCT) Negative [facility] NITRITE UA (POCT) Negative Negative [facility] PH UA (POCT) 5.0 4.5 - 8.0 [facility] Protein Ql (U) Negative Negative mg/dL [facility] SPECIFIC GRAVITY UA (POCT) 1.010 1.005 - 1.030 [facility] UROBILINOGEN UA (POCT) 0.2 E.U./dL Normal E.U./dL [facility] Office Visit (Cardiology)on 06-13-2023 Follow-up visit Diagnoses/Problems Assessed Chest pain (786.50) (R07.9) Elevated troponin (790.6) (R77.8) Fatigue (780.79) (R53.83) Never a smoker Overweight with body mass index (BMI) of 27 to 27.9 in adult (278.02,V85.23) (E66.3,Z68.27) Orders Elevated troponin IO EKG Electrocardiogram- 12 Lead; Status:Active - Perform Order,Retrospective Authorization; Requested for:[id number]; Overweight with body mass index (BMI) of 27 to 27.9 in adult Healthy Weight Tips; Status:Complete - Retrospective Authorization; Done: [id number] Some eating tips that can help you lose weight.; Status:Complete - Retrospective Authorization; Done: [id number] SocHx: Never a smoker Tobacco Use Screening; Status:Complete; Done: [id number] Patient Instructions Please bring all medicines, vitamins, [...] work-up that [facility] emergency room. Reportedly her troponins are elevated [...] of which are currently being investigated at [facility] (now her fourth GI specialist). Last year while in [place] she had similar issues with elevated troponins in the ED and underwent heart catheterization that did not reveal any specific significant disease, details of the discharge summary are reviewed She underwent recent stress perfusion imaging at [facility], the report is reviewed, she has no [...] rise at [facility] however I believe this is likely a non-NH troponin elevation, likely associated with underlying inflammatory [...] Signs Recorded: 13Jun2023 10:37AM Heart Rate70, Apical [id number], RUE, Sitting Eqxwiwsnm04, RUE, Sitting Height5 ft 4 in Igqblm278 lb BMI Rqnrlmakmq08.46 kg/m2 BSA Calculated1.78 Tobacco Useb) No PHQ-2 [...] Screening.on 023 Adult depression screening assessment No [facility] [address] DO Work Phone: Adult depression screening assessment Yes [facility] [address] DO Work Phone: Adult depression screening assessment Moderate (10-14) [facility] [address] DO Work Phone: Fall risk assessment a) No falls within the last year [facility] [address] DO Work Phone: Tobacco use status [facility] b) No [facility] [address] DO Work Phone: Tobacco Screening. 1-Several days [facility] [address] DO Work Phone: Tobacco Screening. 3-Nearly every day [facility] [address] DO Work Phone: Tobacco Screening. 0-Not at all [facility] [address] DO Work Phone: Tobacco Screening. Somewhat Difficult [facility] [address] DO Work Phone: Activated partial thrombopla stin time (aPTT) in platelet poor plasma by coagulation aOrdered By: Anibal Valle on 06-05-2023 aPTT Coag (PPP) [Time] 28.0 s 25.1-36.5 [facility] Basophils Auto (Bld) [#/Vol] Ordered By: Anibal Valle on 06-05-2023 Basophils (Bld) [#/Vol] 0.0 10*3/uL 0.0-0.2 [facility] Basophils/100 WBC Auto (Bld) Ordered By: Anibal Valle on 06-05-2023 Basophils/100 WBC (Bld) 0.4 % . [facility] Calcium [Mass/volume] in Ser um or PlasmaOrdered By: Anibal Valle on 06-05-2023 Calcium [Mass/Vol] 9.0 mg/dL 8.6-10.3 [facility] Carbon dioxide, total [Moles /volume] in Serum or PlasmaOrdered By: Anibal Valle on 06-05-2023 CO2 [Moles/Vol] 23.2 mmol/L 21.0-31.0 [facility] Chloride [Moles/volume] in S jay or PlasmaOrdered By: Anibal Valle on 06-05-2023 Chloride [Moles/Vol] 108 mmol/L 98-107 [facility] Creatinine [Mass/volume] in Serum or PlasmaOrdered By: Anibal Valle on 06-05-2023 Creatinine [Mass/Vol] 0.67 mg/dL 0.60-1.[address] [facility] Eosinophils Auto (Bld) [#/Vo l]Ordered By: Anibal Valle on 06-05-2023 Eosinophils (Bld) [#/Vol] 0.1 10*3/uL 0.0-0.45 [facility] Eosinophils/100 WBC Auto (Bl d)Ordered By: Anibal Valle on 06-05-2023 Eosinophils/100 WBC (Bld) 1.9 % . [facility] Erythrocyte distribution wid th Auto (RBC) [Ratio]Ordered By: Anibal Valle on 06-05-2023 Erythrocyte distribution width (RBC) [Ratio] 13.9 % 11.9-15.3 [facility] Glucose [Mass/volume] in Ser um or PlasmaOrdered By: Anibal Valle on 06-05-2023 Glucose [Mass/Vol] 106 mg/dL 70-100 [facility] Comment on above: ADA recommended refe rence rangeRandom Glucose Reference Range is dependent on time and content of last meal. Glucose of more than 200 mg/dL in a nonstressed, ambulatory subject supports the diagnosis of Diabetes Mellitus. Hematocrit Auto (Bld) [Volum e fraction]Ordered By: Anibal Valle on 06-05-2023 Hematocrit (Bld) [Volume fraction] 34.4 % 34.0-46.4 [facility] Hemoglobin [Mass/volume] in BloodOrdered By: Anibal Valle on 06-05-2023 Hemoglobin (Bld) [Mass/Vol] 11.9 g/dL 11.8-15.4 [facility] Laboratory - CoagulationOrde red By: Anibal Valle on 06-05-2023 PT Coag (PPP) [Time] 12.0 s 9.0-12.9 [facility] Leukocytes [#/volume] correc herbert for nucleated erythrocytes in Blood by Automated counOrdered By: Anibal Valle on 06-05-2023 WBC corrected for nucl RBC Auto (Bld) [#/Vol] 4.4 10*3/uL 3.8-11.6 [facility] Lymphocytes Auto (Bld) [#/Vo l]Ordered By: Anibal Valle on 06-05-2023 Lymphocytes (Bld) [#/Vol] 1.8 10*3/uL 1.00-4.8 [facility] Lymphocytes/100 WBC Auto (Bl d)Ordered By: Anibal Valle on 06-05-2023 Lymphocytes/100 WBC (Bld) 41.0 % . [facility] MCH Auto (RBC) [Entitic mass ]Ordered By: Anibal Valle on 06-05-2023 MCH (RBC) [Entitic mass] 27.7 pg 24.7-34.3 [facility] MCHC Auto (RBC) [Mass/Vol]Or dered By: Anibal Valle on 06-05-2023 MCHC (RBC) [Mass/Vol] 34.5 g/dL 32.0-35.[address] [facility] MCV Auto (RBC) [Entitic vol] Ordered By: Anibal Valle on 06-05-2023 MCV (RBC) [Entitic vol] 80.2 fL 80-100 [facility] Monocyte distribution width [Entitic volume] in Blood by AutomatedOrdered By: Anibal Valle on 06-05-2023 Monocyte distribution width Auto (Bld) [Entitic vol] 24.18 % 0.00-20.00 [facility] Comment on above: For adults in ED, MD W > 20.0 may be associated with a higher risk of sepsis during the first 12 hrs of hospital admission Monocytes Auto (Bld) [#/Vol] Ordered By: Anibal Valle on 06-05-2023 Monocytes (Bld) [#/Vol] 0.3 10*3/uL 0.0-0.8 [facility] Monocytes/100 WBC Auto (Bld) Ordered By: Anibal Valle on 06-05-2023 Monocytes/100 WBC (Bld) 7.5 % . [facility] Natriuretic peptide B [Mass/ Vol]Ordered By: Anibal Valle on 06-05-2023 Natriuretic peptide B (Bld) [Mass/Vol] 39.0 pg/mL 5-100 [facility] Neutrophils Auto (Bld) [#/Vo l]Ordered By: Anibal Valle on 06-05-2023 Neutrophils (Bld) [#/Vol] 2.2 10*3/uL 1.8-7.7 [facility] Neutrophils/100 WBC Auto (Bl d)Ordered By: Anibal Valle on 06-05-2023 Neutrophils/100 WBC (Bld) 49.2 % . [facility] No Panel InformationOrdered By: Anibal Valle on 06-05-2023 Estimated GFR (CKD-EPI) > 60.0 mL/Min [facility] Creatinine Clearance (Chem 97.82 [facility] Nucleated erythrocytes [Pres ence] in Blood by Automated countOrdered By: Anibal Valle on 06-05-2023 Nucleated RBC Auto Ql (Bld) 0.1 /100{WBC} 0-0.5 [facility] Platelet mean volume Auto (B ld) [Entitic vol]Ordered By: Anibal Valle on 07-31-2023 Platelet mean volume (Bld) [Entitic vol] 7.4 fL 6.3-10.7 [facility] Platelet poor plasma interna tional normalized ratio (INR) by coagulation assay (relatOrdered By: Anibal Valle on 06-05-2023 INR Coag (PPP) [Relative time] 1.0 {INR} [facility] Comment on above: INR Therapeutic Rang [...] 06-05-2023 Platelets (Bld) [#/Vol] 336 10*3/uL 150-450 [facility] Potassium [Moles/volume] in Serum or PlasmaOrdered By: Anibal Valle on 06-05-2023 Potassium [Moles/Vol] 3.8 mmol/L 3.5-5.[address] [facility] RBC Auto (Bld) [#/Vol]Ordere d By: Anibal Valle on 06-05-2023 RBC (Bld) [#/Vol] 4.29 10*6/uL 3.60-5.00 [facility] Serum or plasma anion gap de terminationOrdered By: Anibal Valle on 06-05-2023 Anion gap [Moles/Vol] 10.6 mmol/L 6.0-15.0 [facility] Sodium [Moles/volume] in Ser um or PlasmaOrdered By: Anibal Valle on 06-05-2023 Sodium [Moles/Vol] 138 mmol/L 136-145 [facility] Troponin I.cardiac [Mass/vol ume] in Serum or Plasma by Detection limit <= 0.01 ng/Ordered By: Anibal Valle on 06-05-2023 Troponin I.cardiac DL <= 0.01 ng/mL [Mass/Vol] 2.6 pg/mL 0.0-15.0 [facility] Urea nitrogen [Mass/volume] in Serum or PlasmaOrdered By: Anibal Valle on 06-05-2023 Urea nitrogen [Mass/Vol] 10 mg/dL 7 [facility] WBC Auto (Bld) [#/Vol]Ordere d By: Anibal Valle on 06-05-2023 WBC (Bld) [#/Vol] 4.4 10*3/uL 3.8-11.6 [facility] CBC AUTO DIFFon 04-05-2023 BASO # 0.0 103/ul Normal 0.0-0.1 [facility] Comment on above: Performed By: #### L ACT #### [facility] [address] [address] [address] Mirian Velasco Basophils/100 WBC (Bld) 0.8 % Normal 0.2-2.0 [facility] Comment on above: Performed By: #### L ACT #### [facility] [address] [address] [address] Mirian Velasco EO # 0.1 103/ul Normal 0.0-0.7 [facility] Comment on above: Performed By: #### L ACT #### [facility] [address] [address] [address] Mirian Velasco Eosinophils/100 WBC (Bld) 1.1 % Normal 0.9-7.0 [facility] Comment on above: Performed By: #### L ACT #### [facility] [address] [address] [address] Mirian Velasco Erythrocyte distribution width (RBC) [Ratio] 13.1 % Normal 11.0-15.0 [facility] Comment on above: Performed By: #### L ACT #### [facility] [address] [address] [address] Mirian Velasco Hematocrit (Bld) [Volume fraction] 37.6 % Normal 36.0-48.0 [facility] Comment on above: Performed By: #### L ACT #### [facility] [address] [address] [address] Mirian Velasco Hemoglobin (Bld) [Mass/Vol] 12.4 g/dL Normal 12.0-16.0 [facility] Comment on above: Performed By: #### L ACT #### [facility] [address] [place] [address] Dr. Mirian Velasco IG # 0.01 10e3/ul Normal 0.00-0.03 [facility] Comment on above: Performed By: #### L ACT #### [facility] [address] [place] [address] Dr. Mirian Velasco IG % 0.2 % Normal 0.0-0.5 [facility] Comment on above: Performed By: #### L ACT #### [facility] [address] [place] [address] Dr. Mirian Velasco LYMPH # 2.5 103/ul Normal 1.2-3.8 [facility] Comment on above: Performed By: #### L ACT #### [facility] [address] [place] [address] Dr. Mirian Velasco Lymphocytes/100 WBC (Bld) 46.2 % Normal 20.5-60.0 [facility] Comment on above: Performed By: #### L ACT #### [facility] [address] [place] [address] Dr. Mirian Velasco MANUAL DIFF REQ NO Normal [facility] Comment on above: Performed By: #### L ACT #### [facility] [address] [place] [address] Dr. Mirian Velasco MCH (RBC) [Entitic mass] 27.1 pg Normal 26.7-34.0 [facility] Comment on above: Performed By: #### L ACT #### [facility] [address] [place] [address] Dr. Mirian Velasco MCHC (RBC) [Mass/Vol] 33.0 g/dL Normal 29.9-35.2 [facility] Comment on above: Performed By: #### L ACT #### [facility] [address] [place] [address] Dr. Mirian Velasco MCV (RBC) [Entitic vol] 82.3 fL Normal 81.0-99.0 [facility] Comment on above: Performed By: #### L ACT #### [facility] [address] [address] [address] Mirian Velasco MONO # 0.4 103/ul Normal 0.3-0.8 [facility] Comment on above: Performed By: #### L ACT #### [facility] [address] [address] [address] Mirian Velasco Monocytes/100 WBC (Bld) 7.9 % Normal 1.7-12.0 [facility] Comment on above: Performed By: #### L ACT #### [facility] [address] [place] [address] Dr. Mirian Velasco NEUT # 2.3 103/ul Normal 1.4-6.5 [facility] Comment on above: Performed By: #### L ACT #### [facility] [address] [place] [address] Dr. Mirian Velasco Neutrophils/100 WBC (Bld) 43.8 % Normal 43.0-75.0 [facility] Comment on above: Performed By: #### L ACT #### [facility] [address] [place] [address] Dr. Mirian Velasco Platelet mean volume (Bld) [Entitic vol] 9.2 fL Critically low 9.5-13.5 [facility] Comment on above: Performed By: #### L ACT #### [facility] [address] [place] [address] Dr. Mirian Velasco PLT 318 103/ul Normal 150-450 [facility] Comment on above: Performed By: #### L ACT #### [facility] [address] [place] [address] Dr. Mirian Velasco RBC 4.57 106/ul Normal 4.20-5.40 [facility] Comment on above: Performed By: #### L ACT #### [facility] [address] [place] [address] Dr. Mirian Velasco WBC 5.3 103/ul Normal 4.0-11.0 [facility] Comment on above: Performed By: #### L ACT #### [facility] [address] [place] [address] Dr. Mirian Velasco PROF CHEM 8 (BAS METB)on Anion gap [Moles/Vol] 19.0 mmol/L Normal [facility] Comment on above: Performed By: #### H FAUSTO, BMP ####[facility] [address] [address]Dr. Mirian Velasco Calcium [Mass/Vol] 9.6 mg/dL Normal 8.5-10.1 [facility] Comment on above: Performed By: #### H FAUSTO, BMP ####[facility] [address] [address]Dr. Mirian Velasco Chloride [Moles/Vol] 103 mmol/L Normal 98-107 [facility] Comment on above: Performed By: #### H FAUSTO, BMP ####[facility] [address] [place], [place] [address]Dr. Mirian Velasco CO2 [Moles/Vol] 23.1 mmol/L Normal 21.0-32.0 [facility] Comment on above: Performed By: #### H FAUSTO, BMP ####[facility] [address] [address]Dr. Mirian Velasco Creatinine [Mass/Vol] 0.84 mg/dL Normal 0.55-1.02 [facility] Comment on above: Performed By: #### H FAUSTO, BMP ####[facility] [address] [address]Dr. Mirian Velasco EGFR-AF NAURUAN >60 Normal >=60 [facility] Comment on above: Performed By: #### H STROPN, BMP ####[facility] [address] [address]Dr. Mirian Velasco EGFR-NON AF NAURUAN >60 Normal >=60 [facility] Comment on above: Performed By: #### H STROROSALIO, BMP ####[facility] [address] [address]Dr. Mirian Velasco Glucose [Mass/Vol] 129 mg/dL Critically high 74-106 [facility] Comment on above: Performed By: #### H FAUSTO, BMP ####[facility] [address] [id number][address] Mirian Velasco Potassium [Moles/Vol] 3.1 mmol/L Critically low 3.5-5.1 [facility] Comment on above: Performed By: #### H STROPN, BMP ####[facility] [address] [id number][address] Mirian Velasco Sodium [Moles/Vol] 142 mmol/L Normal 136-145 [facility] Comment on above: Performed By: #### H STROPN, BMP ####[facility] [address] [address]Dr. Mirian Velasco Urea nitrogen [Mass/Vol] 12.0 mg/dL Normal 7.0-18.0 [facility] Comment on above: Performed By: #### H STROPN, BMP ####[facility] [address] [address]Dr. Mirian Velasco Urea nitrogen/Creatinine [Mass ratio] 14.3 mg/mg Normal [facility] Comment on above: Performed By: #### H STROPN, BMP ####[facility] [address] [address]DrReno Velasco TROPONIN, HIGH SENSITIVITYon 04-05-2023 HSTROP 5.6 pg/mL Normal 4.0-51.3 [facility] Comment on above: Result Comment: CUT- OFF POINTS HAVE BEEN ESTABLISHED BASED ON THE FOURTH UNIVERSAL DEFINITIONS OF MYOCARDIAL INFARCTION. THE UPPER REFERENCE LIMIT (URL) OF TROPONIN, DEFINED THE 99TH PERCENTILE OF cTnI DISTRIBUTION IN A REFERENCE POPULATION, HAS BEEN CONFIRMED THE DECISION THRESHOLD FOR NH DIAGNOSIS. Performed By: #### H STROPN, BMP ####[facility] [address] [address]DrReno Velasco CBC AUTO DIFFon 03-06-2023 BASO # 0.1 103/ul Normal 0.0-0.1 [facility] Comment on above: Performed By: #### L ACT #### [facility] [address] [address] [address] Mirian Velasco Basophils/100 WBC (Bld) 0.8 % Normal 0.2-2.0 [facility] Comment on above: Performed By: #### L ACT #### [facility] [address] [place] [address] Dr. Mirian Velasco EO # 0.1 103/ul Normal 0.0-0.7 [facility] Comment on above: Performed By: #### L ACT #### [facility] [address] [place] [address] Dr. Mirian Velasco Eosinophils/100 WBC (Bld) 1.4 % Normal 0.9-7.0 [facility] Comment on above: Performed By: #### L ACT #### [facility] [address] [place] [address] Dr. Mirian Velasco Erythrocyte distribution width (RBC) [Ratio] 13.1 % Normal 11.0-15.0 [facility] Comment on above: Performed By: #### L ACT #### [facility] [address] [place] [address] Dr. Mirian Velasco Hematocrit (Bld) [Volume fraction] 37.9 % Normal 36.0-48.0 [facility] Comment on above: Performed By: #### L ACT #### [facility] [address] [place] [address] Dr. Mirian Velasco Hemoglobin (Bld) [Mass/Vol] 12.7 g/dL Normal 12.0-16.0 [facility] Comment on above: Performed By: #### L ACT #### [facility] [address] [place] [address] Dr. Mirian eVlasco IG # 0.01 10e3/ul Normal 0.00-0.03 [facility] Comment on above: Performed By: #### L ACT #### [facility] [address] [place] [address] Dr. Mirian Velasco IG % 0.2 % Normal 0.0-0.5 [facility] Comment on above: Performed By: #### L ACT #### [facility] [address] [place] [address] Dr. Mirian Velasco LYMPH # 1.8 103/ul Normal 1.2-3.8 [facility] Comment on above: Performed By: #### L ACT #### [facility] [address] [place] [address] Dr. Mirian Velasco Lymphocytes/100 WBC (Bld) 27.2 % Normal 20.5-60.0 [facility] Comment on above: Performed By: #### L ACT #### [facility] [address] [place] [address] Dr. Mirian Velasco MANUAL DIFF REQ NO Normal [facility] Comment on above: Performed By: #### L ACT #### [facility] [address] [place] [address] Dr. Mirian Velasco MCH (RBC) [Entitic mass] 27.5 pg Normal 26.7-34.0 [facility] Comment on above: Performed By: #### L ACT #### [facility] [address] [place] [address] Dr. Mirian Velasco MCHC (RBC) [Mass/Vol] 33.5 g/dL Normal 29.9-35.2 [facility] Comment on above: Performed By: #### L ACT #### [facility] [address] [place] [address] Dr. Mirian Velasco MCV (RBC) [Entitic vol] 82.0 fL Normal 81.0-99.0 [facility] Comment on above: Performed By: #### L ACT #### [facility] [address] [place] [address] Dr. Mirian Velasco MONO # 0.4 103/ul Normal 0.3-0.8 [facility] Comment on above: Performed By: #### L ACT #### [facility] [address] [place] [address] Dr. Mirian Velasco Monocytes/100 WBC (Bld) 5.5 % Normal 1.7-12.0 [facility] Comment on above: Performed By: #### L ACT #### [facility] [address] [place] [address] Dr. Mirian Velasco NEUT # 4.3 103/ul Normal 1.4-6.5 [facility] Comment on above: Performed By: #### L ACT #### [facility] [address] [address] [address] Mirian Velasco Neutrophils/100 WBC (Bld) 64.9 % Normal 43.0-75.0 [facility] Comment on above: Performed By: #### L ACT #### [facility] [address] [address] [address] Mirian Velasco Platelet mean volume (Bld) [Entitic vol] 9.4 fL Critically low 9.5-13.5 [facility] Comment on above: Performed By: #### L ACT #### [facility] [address] [address] [address] Mirian Velasco PLT 317 103/ul Normal 150-450 [facility] Comment on above: Performed By: #### L ACT #### [facility] [address] [place] [address] Dr. Mirian Velasco RBC 4.62 106/ul Normal 4.20-5.40 [facility] Comment on above: Performed By: #### L ACT #### [facility] [address] [place] [address] Dr. Mirian Velasco WBC 6.6 103/ul Normal 4.0-11.0 [facility] Comment on above: Performed By: #### L ACT #### [facility] [address] [address] [address] Mirian Velasco CULTURE BLOODon 03-06-2023 Microscopic examination of blood, culture Culture Observations: NO GROWTH AT 5 DAYS. Normal [facility] Comment on above: Performed By: #### B LDCX2 ####[facility] [address] [place], [place] [address]UwDr. Mirian Velasco Microscopic examination of blood, culture Culture Observations: NO GROWTH AT 5 DAYS. Normal [facility] Comment on above: Performed By: #### B LDCX1 #### [facility] [address] [address] [address] Mirian Velasco LACTATE/LACTIC ACIDon 2022 Lactate [Moles/Vol] 2.2 mmol/L Critically high 0.4-2.0 [facility] Comment on above: Performed By: #### L ACT #### [facility] [address] [place] [address] Dr. Mirian Velasco LIPASEon 03-06-2023 Lipase [Catalytic activity/Vol] 53.0 U/L Critically low 73.0-393.0 [facility] Comment on above: Performed By: #### L ACT #### [facility] [address] [place] [address] Dr. Mirian Velasco PROF 14(COMP METB)on 023 Albumin [Mass/Vol] 3.4 g/dL Normal 3.4-5.0 [facility] Comment on above: Performed By: #### L ACT #### [facility] [address] [place] [address] Dr. Mirian Velasco Albumin/Globulin [Mass ratio] 1.0 {ratio} Normal [facility] Comment on above: Performed By: #### L ACT #### [facility] [address] [place] [address] Dr. Mirian Velasco ALP [Catalytic activity/Vol] 123 U/L Critically high 46-116 [facility] Comment on above: Performed By: #### L ACT #### [facility] [address] [place] [address] Dr. Mirian Velasco ALT [Catalytic activity/Vol] 33 U/L Normal 14-59 [facility] Comment on above: Performed By: #### L ACT #### [facility] [address] [place] [address] Dr. Mirian Velasco Anion gap [Moles/Vol] 13.1 mmol/L Normal [facility] Comment on above: Performed By: #### L ACT #### [facility] [address] [place] [address] Dr. Mirian Velasco AST [Catalytic activity/Vol] 31 U/L Normal 15-37 [facility] Comment on above: Performed By: #### L ACT #### [facility] [address] [place] [address] Dr. Mirian Velasco Bilirubin [Mass/Vol] 0.3 mg/dL Normal 0.2-1.0 [facility] Comment on above: Performed By: #### L ACT #### [facility] [address] [address] [address] Mirian Velasco Calcium [Mass/Vol] 8.9 mg/dL Normal 8.5-10.1 [facility] Comment on above: Performed By: #### L ACT #### [facility] [address] [address] [address] Mirian Velasco Chloride [Moles/Vol] 107 mmol/L Normal 98-107 [facility] Comment on above: Performed By: #### L ACT #### [facility] [address] [address] [address] Mirian Velasco CO2 [Moles/Vol] 25.6 mmol/L Normal 21.0-32.0 [facility] Comment on above: Performed By: #### L ACT #### [facility] [address] [address] [address] Mirian Velasco Creatinine [Mass/Vol] 0.70 mg/dL Normal 0.55-1.02 [facility] Comment on above: Performed By: #### L ACT #### [facility] [address] [place] [address] Dr. Mirian Velasco EGFR-AF NAURUAN >60 Normal >=60 [facility] Comment on above: Performed By: #### L ACT #### [facility] [address] [address] [address] Mirian Velasco EGFR-NON AF NAURUAN >60 Normal >=60 [facility] Comment on above: Performed By: #### L ACT #### [facility] [address] [address] [address] Mirian Velasco Globulin (S) [Mass/Vol] 3.4 g/dL Normal [facility] Comment on above: Performed By: #### L ACT #### [facility] [address] [address] [address] Mirian Velasco Glucose [Mass/Vol] 125 mg/dL Critically high 74-106 T [facility] Comment on above: Performed By: #### L ACT #### [facility] [address] [address] [address] Mirian Velasco Potassium [Moles/Vol] 3.7 mmol/L Normal 3.5-5.1 [facility] Comment on above: Performed By: #### L ACT #### [facility] [address] [address] [address] Mirian Velasco Protein [Mass/Vol] 6.8 g/dL Normal 6.4-8.2 [facility] Comment on above: Performed By: #### L ACT #### [facility] [address] [address] [address] Mirian Velasco Sodium [Moles/Vol] 142 mmol/L Normal 136-145 [facility] Comment on above: Performed By: #### L ACT #### [facility] [address] [address] [address] Mirian Velasco Urea nitrogen [Mass/Vol] 16.0 mg/dL Normal 7.0-18.0 [facility] Comment on above: Performed By: #### L ACT #### [facility] [address] [address] [address] Mirian Velasco Urea nitrogen/Creatinine [Mass ratio] 22.9 mg/mg Normal [facility] Comment on above: Performed By: #### L ACT #### [facility] [address] [address] [address] Mirian Velasco PROTIMEon 03-06-2023 INR Coag (PPP) [Relative time] {INR} Normal [facility] Comment on above: Performed By: #### P T #### [facility] [address] [address] [address] Mirian Velasco INR GUIDELINES SEE BELOW Normal [facility] Comment on above: Result Comment: SAMEER RED INR: 2.0 - 3.0 CONDITIONS NOT LISTED BELOW 2.5 - 3.5 FOR PROSTHETIC HEART VALVE REPLACEMENT 2.5 - 3.5 RECURRENT THROMBOSIS Performed By: #### P T #### [facility] [address] [address] [address] Mirian Velasco PT Coag (PPP) [Time] 9.8 s Normal 9.0-11.6 [facility] Comment on above: Performed By: #### P T #### [facility] [address] [address] [address] Mirian Velasco TROPONIN, HIGH SENSITIVITYon 03-06-2023 HSTROP 4.4 pg/mL Normal 4.0-51.3 [facility] Comment on above: Result Comment: CUT- OFF POINTS HAVE BEEN ESTABLISHED BASED ON THE FOURTH UNIVERSAL DEFINITIONS OF MYOCARDIAL INFARCTION. THE UPPER REFERENCE LIMIT (URL) OF TROPONIN, DEFINED THE 99TH PERCENTILE OF cTnI DISTRIBUTION IN A REFERENCE POPULATION, HAS BEEN CONFIRMED THE DECISION THRESHOLD FOR [place] DIAGNOSIS. Performed By: #### L ACT #### [facility] [address] [address] [address] Mirian Velasco Bacteria identified Aer cx N om (Unsp spec)Ordered By: Niecy Duron on 03-02-2023 Superficial Wound Culture Methicillin Resis Staph Aureus [facility] CT LSPINE WO CONon CT LSPINE WO CON EXAM: CT scan [...] by: NANCY BELLE Date: 2023-02-19 06:42 Normal [facility] XR ESOPHAGRAMon 12-26-2022 [facility] NURSING PROGon 12-08-2022 NURSING PROG HNO ID: [id number] Author: Lisa Contreras, MAKI Service: Nursing Author Type: Registered Nurse Type: Nursing Progress Note Filed: 12/08/2022 11:28 AM Note Text: [facility] POST PROCEDURE FOLLOW UP CALL [phone] (home) Date Phone Call Made: 12/08/2022 Attempt: [...] experience more pleasant? No Lisa Contreras, RN [facility] ANES POSTPROC EVALon 023 ANES POSTPROC EVAL HNO ID: [id number] Author: Andres Sheets DO Service: Anesthesiology Author Type: Anesthesiologist Type: Anesthesia Postprocedure Evaluation Filed: 12/07/2022 12:44 PM Note Text: POST ANESTHESIA EVALUATION NOTE : 1970 Procedure Summary Date: 12/07/22 Room / Location: [facility] Anesthesia Start: 1034 Anesthesia Stop: 1055 [...] December 07, 2022 TIME: 12:44 PM CSN: [id number] [facility] ANES PRE-OPon 12-07-2022 ANES PRE-OP HNO ID: [id number] Author: Andres Sheets DO Service: Anesthesiology Author Type: Anesthesiologist Type: Anesthesia Preprocedure Evaluation Filed: 12/07/2022 9:42 AM Note Text: ANESTHESIOLOGY DAY OF SURGERY NOTE : 1970 Procedure Information Date/Time: 12/07/22 1030 Scheduled providers: Winston Hannah DO Procedures: EGD - THERAPEUTIC, EUS, OR TUBE INTERVENTIONS PH MONTIEL INSERT OFF MEDS Location: [facility] Estimated body mass index is 24.55 [...] and consent discussed: yes. Patient / Responsible Constitution Party agrees to proceed: yes Patient / Surrogate agrees to blood products: blood products not planned Significant changes in the patient condition since the History and Physical, not otherwise documented in primary service progress note: no. Potential Anesthesia issues that may suggest increased risk of complications or contraindication to planned procedure: none. Vitals Value Taken Time BP 109/74 02/01/23 0920 Pulse 91 12/07/22919 Resp 16 12/07/22919 [...] December 07, 2022 TIME: 9:40 AM CSN: [id number] [facility] HISTORY PHYSICALon HISTORY PHYSICAL HNO ID: [id number] Author: Soraida Mathis PA-C Service: Gastroenterology Author Type: Physician Standards Analyst Type: HANDP Filed: 12/07/2022 9:48 AM Note [...] PAIN, N/V/D Medication reconciliation list reviewed in [facility]. Past medical history, past surgical history, social history and family history reviewed and updated in [facility]. ALLERGIES Allergies: Risperidone Intolerance Comment:Breast discharge SEE [facility] FOR VITALS BP 109/74 Pulse 91 Temp [...] Leal DATE: 12/07/2022 TIME: 9:41 AM Normal [facility] Upper GI endoscopyon 023 Upper GI endoscopy [facility] Patient Name: Mary Leal Procedure [...] by the physician, the nurse and the screen printing cloth spreader in the pre-procedure area in the endoscopy [...] previously scheduled. Procedure Code(s): --- Professional --- 65946, Esophagogastroduodenos copy, flexible, transoral; with dilation of gastric/duodenal stricture(s) (eg, balloon, bougie) Diagnosis Code(s): --- Professional --- K21.00, Gastro-esophageal reflux disease with esophagitis, without bleeding K31.84, Gastroparesis CPT copyright 2020 [employer]. All rights reserved. The codes documented in this report are preliminary and upon hospice rn review may be revised to meet current compliance requirements. Attending Participation: I personally performed the entire procedure. Scope In: 10:39:12 AM Scope Out: 10:46:13 AM MD Winston Diaz MD 12/07/2022 10 (more content not included)... Normal [facility] ANES POSTPROC EVALon 023 ANES POSTPROC EVAL HNO ID: [id number] Author: Annabel Burton MD Service: Anesthesiology Author Type: Physician Type: Anesthesia Postprocedure Evaluation Filed: 12/05/2022 2:01 PM Note Text: POST ANESTHESIA EVALUATION NOTE : 1970 Procedure Summary Date: 12/05/22 Room / Location: [facility] Anesthesia Start: 900 Anesthesia Stop: 917 [...] December 05, 2022 TIME: 2:00 PM CSN: [id number] Normal [facility] ANES PRE-OPon 12-05-2022 ANES PRE-OP HNO ID: [id number] Author: Annabel Burton MD Service: Anesthesiology Author Type: Physician Type: Anesthesia Preprocedure Evaluation Filed: 12/05/2022 8:28 AM Note Text: ANESTHESIOLOGY DAY OF SURGERY NOTE : 1970 Procedure Information Date/Time: 12/05/22 0900 Scheduled providers: Isra Masters DO Procedure: SIGMOIDOSCOPY Location: [facility] Estimated body mass index is 24.55 [...] and consent discussed: yes. Patient / Responsible Constitution Party agrees to proceed: yes Patient / [...] December 05, 2022 TIME: 8:26 AM CSN: [id number] Normal [facility] Flexible Sigmoidoscopyon Flexible sigmoidoscopy [facility] Gastrointestinal Endoscopy Patient Name: Mary Leal Procedure Date: 12/05/2022 8:55 AM Date of : 1970 Admit Type: Outpatient Age: 52 Room: [place] [address] Gender: Female Note Status: Finalized Attending MD: [...] present medications. Procedure Code(s): --- Professional --- 58584, 52, Sigmoidoscopy, flexible; diagnostic, including collection of specimen(s) by brushing or washing, when performed (separate procedure) Diagnosis Code(s): --- Professional --- K59.00, Constipation, unspecified CPT copyright 2020 [employer]. All rights reserved. The codes documented in this report are preliminary and upon hospice rn review may be revised to meet current compliance requirements. Attending Participation: I personally performed the entire procedure. Scope In: 9:07:04 AM Scope Out: 9:09:45 AM DO Isra Chen DO 12/05/2022 9:13:05 AM This report has been signed electronically by Isra Masters DO Number of Addenda: 0 Note Initiated On: 12/05/2022 8:55 AM Estimated Blood Loss: Estimated blood loss: none. Normal [facility] HISTORY PHYSICALon HISTORY PHYSICAL HNO ID: [id number] Author: Lashanda Dorado PA-C Service: Gastroenterology Author Type: Physician Standards Analyst Type: HANDP Filed: 12/05/2022 8:43 AM Note [...] PAIN, N/V/D Medication reconciliation list reviewed in [facility]. Past medical history, past surgical history, social history and family history reviewed and updated in [facility]. ALLERGIES Allergies: Risperidone Intolerance Comment:Breast discharge SEE [facility] FOR VITALS There were no vitals taken [...] Leal DATE: 12/05/2022 TIME: 8:42 AM Normal [facility] NURSING PROGon 12-05-2022 NURSING PROG HNO ID: [id number] Author: Lisa Contreras, RN Service: ? Author Type: Registered Nurse Type: Nursing Progress Note Filed: 12/05/2022 1:07 PM Note Text: [facility] ENDOSCOPY PRE PROCEDURE CALL Akiko. I'm calling from [facility] endoscopy to provide you with the information for your surgery/procedure tomorrow. 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 tbd What is the best number for your otr hazmat company driver to be reached at tomorrow for updates? tbd Your otr hazmat company driver is allowed to wait here with [...] Do not wear makeup, lotion, or finger wallisian. yes Patient instructed: Please bring a list [...] given Any barriers to Patient learning (confusion? Snow Fence Erector needed?): Patient/Patient Supervisor Metal Hanging responded appropriately on phone. If patient needs to reschedule please call: [phone] [facility] phone number: [phone] Type of instruction given: Verbal by telephone contact. [facility] NURSING PROGon 12-02-2022 NURSING PROG HNO ID: [id number] Author: Isra Harman RN Service: ? Author Type: Registered Nurse Type: Nursing Progress Note Filed: 12/02/2022 10:54 AM Note Text: [facility] ENDOSCOPY PRE PROCEDURE CALL Akiko. I'm calling from [facility] endoscopy to provide you with the information for your surgery/procedure tomorrow. 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 Rich What is the best number for your otr hazmat company driver to be reached at tomorrow for updates? [phone] Your otr hazmat company driver is allowed to wait here with [...] be done on Monday.) Did you pick up driver your bowel prep pt calling office [...] Do not wear makeup, lotion, or finger wallisian. yes Patient instructed: Please bring a list [...] given Any barriers to Patient learning (confusion? Snow Fence Erector needed?): Patient/Patient Supervisor Metal Hanging responded appropriately on phone. If patient needs to reschedule please call: [phone] [facility] phone number: [phone] Type of instruction given: Verbal by telephone contact. Normal [facility] AMYLASEon 10-20-2022 Amylase [Catalytic activity/Vol] 33 U/L Normal 25-115 [facility] Comment on above: Performed By: #### L ACT #### [facility] [address] [address] [address] Mirian Velasco CBC AUTO DIFFon 10-20-2022 BASO # 0.0 103/ul Normal 0.0-0.1 [facility] Comment on above: Performed By: #### P T #### [facility] [address] [address] [address] Mirian Velasco Basophils/100 WBC (Bld) 0.2 % Normal 0.2-2.0 [facility] Comment on above: Performed By: #### P T #### [facility] [address] [address] [address] Mirian Velasco EO # 0.1 103/ul Normal 0.0-0.7 [facility] Comment on above: Performed By: #### P T #### [facility] [address] [address] [address] Mirian Velasco Eosinophils/100 WBC (Bld) 0.6 % Critically low 0.9-7.0 [facility] Comment on above: Performed By: #### P T #### [facility] [address] [place] [address] Dr. Mirian Velasco Erythrocyte distribution width (RBC) [Ratio] 13.6 % Normal 11.0-15.0 [facility] Comment on above: Performed By: #### P T #### [facility] [address] [address] [address] Mirian Velasco Hematocrit (Bld) [Volume fraction] 41.0 % Normal 36.0-48.0 [facility] Comment on above: Performed By: #### P T #### [facility] [address] [address] [address] Mirian Velasco Hemoglobin (Bld) [Mass/Vol] 13.5 g/dL Normal 12.0-16.0 [facility] Comment on above: Performed By: #### P T #### [facility] [address] [address] [address] Mirian Velasco IG # 0.06 10e3/ul Critically high 0.00-0.03 [facility] Comment on above: Performed By: #### P T #### [facility] [address] [address] [address] Mirian Velasco IG % 0.4 % Normal 0.0-0.5 [facility] Comment on above: Performed By: #### P T #### [facility] [address] [place] [address] Dr. Mirian Velasco LYMPH # 2.5 103/ul Normal 1.2-3.8 [facility] Comment on above: Performed By: #### P T #### [facility] [address] [place] [address] Dr. Mirian Velasco Lymphocytes/100 WBC (Bld) 17.5 % Critically low 20.5-60.0 [facility] Comment on above: Performed By: #### P T #### [facility] [address] [place] [address] Dr. Mirian Velasco MANUAL DIFF REQ NO Normal [facility] Comment on above: Performed By: #### P T #### [facility] [address] [place] [address] Dr. Mirian Velasco MCH (RBC) [Entitic mass] 28.1 pg Normal 26.7-34.0 [facility] Comment on above: Performed By: #### P T #### [facility] [address] [place] [address] Dr. Mirian Velasco MCHC (RBC) [Mass/Vol] 32.9 g/dL Normal 29.9-35.2 [facility] Comment on above: Performed By: #### P T #### [facility] [address] [place] [address] Dr. Mirian Velasco MCV (RBC) [Entitic vol] 85.2 fL Normal 81.0-99.0 [facility] Comment on above: Performed By: #### P T #### [facility] [address] [place] [address] Dr. Mirian Velasco MONO # 0.7 103/ul Normal 0.3-0.8 [facility] Comment on above: Performed By: #### P T #### [facility] [address] [place] [address] Dr. Mirian Velasco Monocytes/100 WBC (Bld) 4.5 % Normal 1.7-12.0 [facility] Comment on above: Performed By: #### P T #### [facility] [address] [place] [address] Dr. Mirian Velasco NEUT # 11.0 103/ul Critically high 1.4-6.5 [facility] Comment on above: Performed By: #### P T #### [facility] [address] [place] [address] Dr. Mirian Velasco Neutrophils/100 WBC (Bld) 76.8 % Critically high 43.0-75.0 [facility] Comment on above: Performed By: #### P T #### [facility] [address] [place] [address] Dr. Mirian Velasco Platelet mean volume (Bld) [Entitic vol] 8.7 fL Critically low 9.5-13.5 [facility] Comment on above: Performed By: #### P T #### [facility] [address] [place] [address] Dr. Mirian Velasco PLT 390 103/ul Normal 150-450 [facility] Comment on above: Performed By: #### P T #### [facility] [address] [place] [address] Dr. Mirian Velasco RBC 4.81 106/ul Normal 4.20-5.40 [facility] Comment on above: Performed By: #### P T #### [facility] [address] [place] [address] Dr. Mirian Velasco WBC 14.3 103/ul Critically high 4.0-11.0 [facility] Comment on above: Performed By: #### P T #### [facility] [address] [place] [address] ABD/PELV W CONon [...] SALMA AMEZQUITA Date: 2022-10-20 12:35 Normal [facility] CULTURE BLOODon 10-20-2022 Microscopic examination of blood, culture Culture Observations: NO GROWTH AT 5 DAYS. Normal [facility] Comment on above: Performed By: #### B LDCX2 ####[facility] [address] [place], [place] [address]HuDr. Mirian Velasco Microscopic examination of blood, culture Culture Observations: NO GROWTH AT 5 DAYS. Normal [facility] Comment on above: Performed By: #### B LDCX1 #### [facility] [address] [place], [place] [address] Dr. 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 NO POTENTIAL PATHOGENS SEEN. Normal [facility] Comment on above: Performed By: #### U RCX #### [facility] [id number] Mirian Velasco ER URINE PROFILEon Bilirubin Ql (U) Negative Normal NEGATIVE [facility] Comment on above: Performed By: #### P T #### [facility] [address] [place] [address] Dr. Mirian Velasco Clarity (U) CLEAR Normal CLEAR [facility] Comment on above: Performed By: #### P T #### [facility] [address] [place] [address] Dr. Mirian Velasco Color (U) LT. YELLOW Normal YELLOW [facility] Comment on above: Performed By: #### P T #### [facility] [address] [place] [address] Dr. Mirian KING A micrscopic examination will be performed if indicated. Normal [facility] Comment on above: Performed By: #### P T #### [facility] [address] [place] [address] Dr. Mirian Velasco Glucose Ql (U) Negative Normal NEGATIVE [facility] Comment on above: Performed By: #### P T #### [facility] [address] [place] [address] Dr. Mirian Velasco Hemoglobin Ql (U) Negative Normal NEGATIVE [facility] Comment on above: Performed By: #### P T #### [facility] [address] [place] [address] Dr. Mirian Velasco Ketones Ql (U) Negative Normal NEGATIVE [facility] Comment on above: Performed By: #### P T #### [facility] [address] [place] [address] Dr. Mirian Velasco LEUKOCYTES SMALL Abnormal NEGATIVE [facility] Comment on above: Performed By: #### P T #### [facility] [address] [place] [address] Dr. Mirian Velasco Nitrite Ql (U) Negative Normal NEGATIVE [facility] Comment on above: Performed By: #### P T #### [facility] [address] [place] [address] Dr. Mirian Velasco pH (U) 7.0 [pH] Normal 5-9 [facility] Comment on above: Performed By: #### P T #### [facility] [address] [place] [address] Dr. Mirian Velasco SPEC GRAVITY 1.015 Normal 1.005-<=1.025 [facility] Comment on above: Performed By: #### P T #### [facility] [address] [place] [address] Dr. Mirian Velasco UA PROTEIN Negative Normal NEGATIVE/ TRACE [facility] Comment on above: Performed By: #### P T #### [facility] [address] [place] [address] Dr. Mirian Velasco UR MICRO IND INDICATED Normal [facility] Comment on above: Performed By: #### P T #### [facility] [address] [place] [address] Dr. Mirian Velasco Urobilinogen Qn (U) 0.2 {Lyubov'U}/dL Normal 0.2 - 1. 0 [facility] Comment on above: Performed By: #### P T #### [facility] [address] [place] [address] Dr. Mirian Velasco LACTATE/LACTIC ACIDon 2021 Lactate [Moles/Vol] 1.3 mmol/L Normal 0.4-1.9 [facility] Comment on above: Performed By: #### L ACT #### [facility] [address] [place] [address] Dr. Mirian Velasco LIPASEon 10-20-2022 Lipase [Catalytic activity/Vol] 49.0 U/L Critically low 73.0-393.0 [facility] Comment on above: Performed By: #### P T #### [facility] [address] [place] [address] Dr. Mirian Velasco PROF 14(COMP METB)on 022 Albumin [Mass/Vol] 3.2 g/dL Critically low 3.4-5.0 [facility] Comment on above: Performed By: #### P T #### [facility] [address] [place] [address] Dr. Mirian Velasco Albumin/Globulin [Mass ratio] 0.9 {ratio} Normal [facility] Comment on above: Performed By: #### P T #### [facility] [address] [place] [address] Dr. Mirian Velasco ALP [Catalytic activity/Vol] 129 U/L Critically high 46-116 [facility] Comment on above: Performed By: #### P T #### [facility] [address] [place] [address] Dr. Mirian Velasco ALT [Catalytic activity/Vol] 25 U/L Normal 14-59 [facility] Comment on above: Performed By: #### P T #### [facility] [address] [place] [address] Dr. Mirian Velasco Anion gap [Moles/Vol] 10.7 mmol/L Normal [facility] Comment on above: Performed By: #### P T #### [facility] [address] [place] [address] Dr. Mirian Velasco AST [Catalytic activity/Vol] 20 U/L Normal 15-37 [facility] Comment on above: Performed By: #### P T #### [facility] [address] [place] [address] Dr. Mirian Velasco Bilirubin [Mass/Vol] 0.5 mg/dL Normal 0.2-1.0 [facility] Comment on above: Performed By: #### P T #### [facility] [address] [place] [address] Dr. Mirian Velasco Calcium [Mass/Vol] 9.2 mg/dL Normal 8.5-10.1 [facility] Comment on above: Performed By: #### P T #### [facility] [address] [place] [address] Dr. Mirian Velasco Chloride [Moles/Vol] 102 mmol/L Normal 98-107 [facility] Comment on above: Performed By: #### P T #### [facility] [address] [place] [address] Dr. Mirian Velasco CO2 [Moles/Vol] 30.0 mmol/L Normal 21.0-32.0 [facility] Comment on above: Performed By: #### P T #### [facility] [address] [place] [address] Dr. Mirian Velasoc Creatinine [Mass/Vol] 0.68 mg/dL Normal 0.55-1.02 [facility] Comment on above: Performed By: #### P T #### [facility] [address] [address] [address] Mirian Velasco EGFR-AF NAURUAN >60 Normal >=60 [facility] Comment on above: Performed By: #### P T #### [facility] [address] [address] [address] Mirian Velasco EGFR-NON AF NAURUAN >60 Normal >=60 [facility] Comment on above: Performed By: #### P T #### [facility] [address] [address] [address] Mirian Velasco Globulin (S) [Mass/Vol] 3.7 g/dL Normal [facility] Comment on above: Performed By: #### P T #### [facility] [address] [address] [address] Mirian Velasco Glucose [Mass/Vol] 109 mg/dL Critically high 74-106 [facility] Comment on above: Performed By: #### P T #### [facility] [address] [address] [address] Mirian Velasco Potassium [Moles/Vol] 3.7 mmol/L Normal 3.5-5.1 [facility] Comment on above: Performed By: #### P T #### [facility] [address] [address] [address] Mirian Velasco Protein [Mass/Vol] 6.9 g/dL Normal 6.4-8.2 [facility] Comment on above: Performed By: #### P T #### [facility] [address] [address] [address] Mirian Velasco Sodium [Moles/Vol] 139 mmol/L Normal 136-145 [facility] Comment on above: Performed By: #### P T #### [facility] [address] [address] [address] Mirian Velasco Urea nitrogen [Mass/Vol] 13.0 mg/dL Normal 7.0-18.0 [facility] Comment on above: Performed By: #### P T #### [facility] [address] [place] [address] Dr. Mirian Velasco Urea nitrogen/Creatinine [Mass ratio] 19.1 mg/mg Normal [facility] Comment on above: Performed By: #### P T #### [facility] [address] [place] [address] Dr. Mirian Velasco URINE MICROSCOPIC ONLYon BACTERIA TRACE Abnormal NONE SEEN [facility] Comment on above: Performed By: #### P T #### [facility] [address] [place] [address] Dr. Mirian Velasco Bacteria identified Cx Nom (U) INDICATED Normal [facility] Comment on above: Performed By: #### P T #### [facility] [address] [place] [address] Dr. Mirian Velasco CAST NONE SEEN Normal NONE SEEN [facility] Comment on above: Performed By: #### P T #### [facility] [address] [place] [address] Dr. Mirian Velasco Crystals LM Nom (Urine sed) NONE SEEN Normal NONE SEEN [facility] Comment on above: Performed By: #### P T #### [facility] [address] [place] [address] Dr. Mirian Velasco Epithelial cells LM Ql (Urine sed) MODERATE Abnormal NONE SEEN /RARE [facility] Comment on above: Performed By: #### P T #### [facility] [address] [place] [address] Dr. Mirian Velasco MUCOUS NONE SEEN Normal NONE SEEN [facility] Comment on above: Performed By: #### P T #### [facility] [address] [place] [address] Dr. Mirian Velasco RBC NONE SEEN Abnormal 0-2 [facility] Comment on above: Performed By: #### P T #### [facility] [address] [place] [address] Dr. Mirian Velasco WBC 2-5 Abnormal NONE SEEN [facility] Comment on above: Performed By: #### P T #### [facility] [address] [address] [address] Mirian Velasco YEAST PRESENT Abnormal NONE SEEN [facility] Comment on above: Result Comment: RARE BUDDING YEAST Performed By: #### P T #### [facility] [id number] Mirian Velasco POINT OF CARE GLUCOSEon 10-06 Glucose [Mass/Vol] 131 mg/dL Critically high 74-106 [facility] Comment on above: Performed By: #### P OCGLUC ####[facility] [id number] [place], [place] [address]CyDr. Mirian Velasco Glucose [Mass/Vol] 113 mg/dL Critically high 74-106 [facility] Comment on above: Performed By: #### P OCGLUC ####[facility] [id number] [place], [place] [address]XcDr. Mirian Velasco XR FOOT RT 2Von 10-17-2022 XR FOOT RT 2V EXAM: XR FOOT RT 2V HISTORY: Pain COMPARISON: 07/27/2022 TECHNIQUE: 2 minutes and 44 seconds of fluoroscopy. 33 images. FINDINGS: Interval posterior calcaneal osteotomy transfixed with 2 screws. Anterior calcaneal osteotomy with wedged spacer. Medial cuneiform osteotomy with wedged spacer. IMPRESSION: Interval triple arthrodesis Electronically authenticated by: NCIKI DACOSTA Date: 2022-10-17 18:04 Normal [facility] Covid-19 PCR (CVDTB)on SARS-CoV-2 (COVID-19) RNA JOSÉ MIGUEL+probe Ql (Unsp spec) Not detected Normal NOT DETECTED [facility] Comment on above: Result Comment: This test is not yet approved or cleared by the [place] FDA. When there are no FDA-approved or cleared tests available, and other criteria are met, FDA can make tests available under an emergency access mechanism called an Emergency Use Authorization (EUA). The EUA for this test is supported by the [employer] of Health and Human Service's (HHS's) declaration [...] SARS-CoV-2. Performed By: #### C VDTB #### [facility] [address] [place], [place] [address] Dr. Mirian Velasco Diagnostic Mammogram, Unilat eral [...] VERY IMPORTANT TO YOUR HEALTH. THE CURRENT [employer] AND [employer]WORK GUIDELINES RECOMMENDS ANNUAL MAMMOGRAPHY BEGINNING AT AGE 42 THIS FACILITY USES A REMINDER SYSTEM TO ENSURE ALL PATIENTS RECEIVE REMINDER NOTIFICATIONS AT THE APPROPRIATE TIME BASED ON THE RECOMMENDATIONS OF THIS EXAM. Board Certified Radiologist. Accredited by the ACR and FDA. Report reported and signed by Dawna Lizarraga on 09/28/2022 1307 Normal [facility] CBC AUTO DIFFon 09-26-2022 BASO # 0.1 103/ul Normal 0.0-0.1 [facility] Comment on above: Performed By: #### L ACT #### [facility] [address] [place], [place] [address] Dr. Mirian Velasco Basophils/100 WBC (Bld) 0.8 % Normal 0.2-2.0 [facility] Comment on above: Performed By: #### L ACT #### [facility] [address] [place], [place] [address] Dr. Mirian Velasco EO # 0.1 103/ul Normal 0.0-0.7 [facility] Comment on above: Performed By: #### L ACT #### [facility] [address] [place] [address] Dr. Mirian Velasco Eosinophils/100 WBC (Bld) 1.5 % Normal 0.9-7.0 [facility] Comment on above: Performed By: #### L ACT #### [facility] [address] [place] [address] Dr. Mirian Velasco Erythrocyte distribution width (RBC) [Ratio] 13.4 % Normal 11.0-15.0 [facility] Comment on above: Performed By: #### L ACT #### [facility] [address] [place] [address] Dr. Mirian Velasco Hematocrit (Bld) [Volume fraction] 41.3 % Normal 36.0-48.0 [facility] Comment on above: Performed By: #### L ACT #### [facility] [address] [place] [address] Dr. Mirian Velasco Hemoglobin (Bld) [Mass/Vol] 13.4 g/dL Normal 12.0-16.0 [facility] Comment on above: Performed By: #### L ACT #### [facility] [address] [place] [address] Dr. Mirian Velasco IG # 0.04 10e3/ul Critically high 0.00-0.03 [facility] Comment on above: Performed By: #### L ACT #### [facility] [address] [place] [address] Dr. Mirian Velasco IG % 0.5 % Normal 0.0-0.5 [facility] Comment on above: Performed By: #### L ACT #### [facility] [address] [place] [address] Dr. Mirian Velasco LYMPH # 2.5 103/ul Normal 1.2-3.8 [facility] Comment on above: Performed By: #### L ACT #### [facility] [address] [place] [address] Dr. Mirian Velasco Lymphocytes/100 WBC (Bld) 27.7 % Normal 20.5-60.0 [facility] Comment on above: Performed By: #### L ACT #### [facility] [address] [place] [address] Dr. Mirian Velasco MANUAL DIFF REQ NO Normal [facility] Comment on above: Performed By: #### L ACT #### [facility] [address] [place] [address] Dr. Mirian Velasco MCH (RBC) [Entitic mass] 27.6 pg Normal 26.7-34.0 [facility] Comment on above: Performed By: #### L ACT #### [facility] [address] [place] [address] Dr. Mirian Velasco MCHC (RBC) [Mass/Vol] 32.4 g/dL Normal 29.9-35.2 [facility] Comment on above: Performed By: #### L ACT #### [facility] [address] [place] [address] Dr. Mirian Velasco MCV (RBC) [Entitic vol] 85.0 fL Normal 81.0-99.0 [facility] Comment on above: Performed By: #### L ACT #### [facility] [address] [place] [address] Dr. Mirian Velasco MONO # 0.6 103/ul Normal 0.3-0.8 [facility] Comment on above: Performed By: #### L ACT #### [facility] [address] [place] [address] Dr. Mirian Velasco Monocytes/100 WBC (Bld) 6.9 % Normal 1.7-12.0 [facility] Comment on above: Performed By: #### L ACT #### [facility] [address] [place] [address] Dr. Mirian Velasco NEUT # 5.6 103/ul Normal 1.4-6.5 [facility] Comment on above: Performed By: #### L ACT #### [facility] [address] [place] [address] Dr. Mirian Velasco Neutrophils/100 WBC (Bld) 62.6 % Normal 43.0-75.0 [facility] Comment on above: Performed By: #### L ACT #### [facility] [address] [address] [address] Mirian Velasco Platelet mean volume (Bld) [Entitic vol] 8.6 fL Critically low 9.5-13.5 [facility] Comment on above: Performed By: #### L ACT #### [facility] [address] [address] [address] Mirian Velasco PLT 372 103/ul Normal 150-450 [facility] Comment on above: Performed By: #### L ACT #### [facility] [address] [address] [address] Mirian Velasco RBC 4.86 106/ul Normal 4.20-5.40 [facility] Comment on above: Performed By: #### L ACT #### [facility] [address] [place] [address] Dr. Mirian Velasco WBC 8.9 103/ul Normal 4.0-11.0 [facility] Comment on above: Performed By: #### L ACT #### [facility] [address] [place] [address] Dr. Mirian Velasco PROF CHEM 8 (BAS METB)on Anion gap [Moles/Vol] 8.0 mmol/L Normal [facility] Comment on above: Performed By: #### P T #### [facility] [address] [place] [address] Dr. Mirian Velasco Calcium [Mass/Vol] 9.0 mg/dL Normal 8.5-10.1 [facility] Comment on above: Performed By: #### P T #### [facility] [address] [place] [address] Dr. Mirian Velasco Chloride [Moles/Vol] 106 mmol/L Normal 98-107 [facility] Comment on above: Performed By: #### P T #### [facility] [address] [place] [address] Dr. Mirian Velasco CO2 [Moles/Vol] 30.3 mmol/L Normal 21.0-32.0 [facility] Comment on above: Performed By: #### P T #### [facility] [address] [address] [address] Mriian Velasco Creatinine [Mass/Vol] 0.71 mg/dL Normal 0.55-1.02 [facility] Comment on above: Performed By: #### P T #### [facility] [address] [address] [address] Mirian Velasco EGFR-AF NAURUAN >60 Normal >=60 [facility] Comment on above: Performed By: #### P T #### [facility] [address] [address] [address] Mirian Velasco EGFR-NON AF NAURUAN >60 Normal >=60 [facility] Comment on above: Performed By: #### P T #### [facility] [address] [address] [address] Mirian Velasco Glucose [Mass/Vol] 81 mg/dL Normal 74-106 [facility] Comment on above: Performed By: #### P T #### [facility] [address] [address] [address] Mirian Velasco Potassium [Moles/Vol] 4.3 mmol/L Normal 3.5-5.1 [facility] Comment on above: Performed By: #### P T #### [facility] [address] [place] [address] Dr. Mirian Velasco Sodium [Moles/Vol] 140 mmol/L Normal 136-145 [facility] Comment on above: Performed By: #### P T #### [facility] [address] [address] [address] Mirian Velasco Urea nitrogen [Mass/Vol] 16.0 mg/dL Normal 7.0-18.0 [facility] Comment on above: Performed By: #### P T #### [facility] [address] [place] [address] Dr. Mirian Velasco Urea nitrogen/Creatinine [Mass ratio] 22.5 mg/mg Normal [facility] Comment on above: Performed By: #### P T #### [facility] [address] [address] [address] Mirian Velasco C reactive protein [Mass/vol ume] in Serum or PlasmaOrdered By: Beto Snyder on 09-22-2022 CRP [Mass/Vol] 0.6 mg/dL 0.0-1.0 [facility] C-Reactive Proteinon 022 C-Reactive Protein 0.6 mg/dL Normal 0.0-1.0 mg/dL [facility] [email or web address] Other Erythrocyte Sedimentation Ra lian 09-22-2022 ESR (Bld) [Velocity] 4 mm/h Normal 0-29 [facility] [employer] [place] [employer] Other Erythrocyte sedimentation ra te by Photometric methodOrdered By: Beto Snyder on 09-22-2022 ESR Photometric method (Bld) [Velocity] 4 mm/hr 0-29 [facility] Serum nuclear antibody titer Ordered By: Beto Snyder on 09-22-2022 Nuclear Ab (S) [Titer] Negative . [facility] Comment on above: Negative <1:80 Julio jasso 1:80 Positive >1:80ICAP nomenclature: AC-0For more information about Hep-2 cell patterns useANApatterns.org, the official website for theInternational Consensus on Antinuclear Antibody (CHUYITA)Patterns (ICAP).Performed at: [facility] [address] [id number] Director: Erick Neville PhD, Phone: [phone] Serum or plasma rheumatoid f actor measurement (units/volume)Ordered By: Beto Snyder on 09-22-2022 Rheumatoid factor Qn [IU]/mL <14.0 [facility] Comment on above: Performed at: [facility] [address] [id number] Director: Erick Neville PhD, Phone: [phone] Serum or plasma thyroxine (T 4) measurement (mass/volume)Ordered By: Beto Snyder on 09-22-2022 T4 [Mass/Vol] 9.82 ug/dL 5.39-11.82 [facility] Serum or plasma uric acid me asurement (mass/volume)Ordered By: Beto Snyder on 09-22-2022 Urate [Mass/Vol] 4.2 mg/dL 2.6-7.2 [facility] TSH DL <= 0.005 mIU/L QnOrde red By: Beto Snyder on 09-22-2022 TSH Qn 1.98 m[IU]/L 0.45-5.33 [facility] Thyroid Stimulating Hormoneo n 09-22-2022 TSH Qn 1.27884607056 m[IU]/L Normal 0.45-5 .33 u[iU]/mL [facility] [place] [employer] Other Thyroxine (T4) Totalon 09-22 Thyroxine (T4) Total 9.82 ug/dL Normal 5.39-11 .82 ug/dL [facility] Other Uric Acidon 09-22-2022 Urate [Mass/Vol] 4.7295053 mg/dL Normal 2.6-7.2 mg/dL [facility] Other XR knee BI 2Von 09-22-2022 XR knee BI 2V [facility] [email or web address] Other XR knee BI 2V [facility] [place] [employer] Other XR knee BI 2V [address] [place] [address] [place] [employer] Other XR knee BI 2V [address] [place] [employer] Other XR knee BI 2V [facility] Other XR knee BI 2V Signed [facility] Other XR knee BI 2V Patient: Darrian Leal jonathan Keys MR#: [id number] [facility] [place] [employer] Other XR knee BI 2V 863 [facility] Other XR knee BI 2V : 1970 Acct:[id number] [facility] Other XR knee BI 2V Age/Sex: 52 / F ADM Date: 09/22/22 [facility] Other XR knee BI 2V Loc: [facility] Room: Type : REG CLI [facility] Other XR knee BI 2V Attending Dr: Beto Snyder MD [facility] Other XR knee BI 2V Copies to: Beto Snyder MD [facility] Other XR knee BI 2V Ordering Provider: Beto Snyder MD [facility] Other XR knee BI 2V Date of Service: 09/22/22 [facility] Other XR knee BI 2V XR/XR knee BI 2V: Knee pain [facility] Other XR knee BI 2V XR knee BI 2V 09/22/2022 9:23 AM [facility] Other XR knee BI 2V SIGNS AND SYMPTOMS: Bilateral knee pain right greater than left [facility] Other XR knee BI 2V PROTOCOL: Frontal an d lateral radiographs of the bilateral knees [facility] Other XR knee BI 2V COMPARISON: None [facility] Other XR knee BI 2V FINDINGS: [facility] Other XR knee BI 2V There is evidence of prior ACL repair in the left knee with mild narrowing of the weightbearing [facility] Other XR knee BI 2V joint spaces on the left. The joint spaces are otherwise preserved. There is no fracture or [facility] Other XR knee BI 2V dislocation. No join t effusion or soft tissue swelling. [facility] Other XR knee BI 2V XR/XR knee BI 2V [facility] Other XR knee BI 2V IMPRESSION: [facility] [email or web address] Other XR knee BI 2V Status post ACL repa ir on the left. [facility] Other XR knee BI 2V Mild degenerative changes are noted in the weightbearing joint spaces of the left. [facility] Other XR knee BI 2V No acute bony injury. [facility] Other XR knee BI 2V Impression dictated by: Rajiv Garcia M.D.09/22/2022 2:17 PM [facility] Other XR knee BI 2V Dictation Location: [place] [address] [facility] Other XR knee BI 2V Transcribed By: PWS 09/22/22 [facility] Other XR knee BI 2V Dictated By: Rajiv Garcia II, MD 09/22/22 [facility] Other XR knee BI 2V Signed By: [facility] Other XR knee BI 2V 09/22/22 [facility] [email or web address] Other XR shoulder BI min 2Von - XR shoulder BI min 2V XR/XR shoulder BI min 2V: Shoulder pain [facility] Other XR shoulder BI min 2V XR shoulder BI min 2V 09/22/2022 9:23 AM [facility] Other XR shoulder BI min 2V SIGNS AND SYMPTOMS : Bilateral shoulder pain with limited range of motion [facility] Other XR shoulder BI min 2V PROTOCOL: Frontal, Grashey, scapular Y, and axillary views of the bilateral shoulders [facility] Other XR shoulder BI min 2V COMPARISON: 02/26/2018 [facility] Other XR shoulder BI min 2V There has been bon y resorption of the lateral margin of the clavicle on the right suggesting [facility] Other XR shoulder BI min 2V osteomyelitis is w hich may be degenerative or traumatic. Mild hypertrophy of the AC joint is noted. [facility] Other XR shoulder BI min 2V The glenohumeral j oint is preserved on the right. There is subcortical sclerosis greater tuberosity [facility] Other XR shoulder BI min 2V of the right suggesting underlying rotator cuff abnormalities. This is new when compared to the [facility] Other XR shoulder BI min 2V prior exam. The visualized right hemithorax is grossly intact. [facility] Other XR shoulder BI min 2V There is mild hypertrophy of the left acromioclavicular joint. There is mild subcortical sclerosis [facility] Other XR shoulder BI min 2V of the greater tuberosity in the left suggesting underlying rotator cuff abnormalities. The [facility] Other XR shoulder BI min 2V glenohumeral joint is preserved. There is no fracture or dislocation. Visualized left hemithorax is [facility] Other XR shoulder BI min 2V grossly intact. [facility] Other XR shoulder BI min 2V There is partial visualization of intervertebral disc arthroplasty is noted within the lower [facility] Other XR shoulder BI min 2V cervical spine. 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 CURRENT [employer]WORK GUIDELINES RECOMMENDS ANNUAL MAMMOGRAPHY BEGINNING AT AGE 42. THIS FACILITY USUALLY USES A REMINDER SYSTEM TO ENSURE ALL POSITIONS RECEIVED REMINDER NOTIFICATIONS AT THE TIME BASED ON THE RECOMMENDATIONS OF THIS EXAM. Report reported and signed by Zaida Diaz on 09/16/2022 1334 Normal [facility] Church Administrator Tobacco Screening.on 022 Adult depression screening assessment No [facility] [address] DO Work Phone: Tobacco use status [facility] b) No [facility] [address] DO Work Phone: COVID Quick Testingon 2021 Result Negative [facility] Other AMYLASEon 04-17-2022 Amylase [Catalytic activity/Vol] 38 U/L Normal 25-115 [facility] Comment on above: Performed By: #### P T #### [facility] [address] [place] [address] Dr. Mirian Velasco CBC AUTO DIFFon 04-17-2022 BASO # 0.1 103/ul Normal 0.0-0.1 [facility] Comment on above: Performed By: #### L ACT #### [facility] [address] [place] [address] Dr. Mirian Velasco Basophils/100 WBC (Bld) 1.0 % Normal 0.2-2.0 [facility] Comment on above: Performed By: #### L ACT #### [facility] [address] [place] [address] Dr. Mirian Velasco EO # 0.2 103/ul Normal 0.0-0.7 [facility] Comment on above: Performed By: #### L ACT #### [facility] [address] [place] [address] Dr. Mirian Velasco Eosinophils/100 WBC (Bld) 3.3 % Normal 0.9-7.0 [facility] Comment on above: Performed By: #### L ACT #### [facility] [address] [place] [address] Dr. Mirian Velasco Erythrocyte distribution width (RBC) [Ratio] 12.0 % Normal 11.0-15.0 [facility] Comment on above: Performed By: #### L ACT #### [facility] [address] [place] [address] Dr. Mirian Velasco Hematocrit (Bld) [Volume fraction] 37.3 % Normal 36.0-48.0 [facility] Comment on above: Performed By: #### L ACT #### [facility] [address] [place] [address] Dr. Mirian Velasco Hemoglobin (Bld) [Mass/Vol] 12.1 g/dL Normal 12.0-16.0 [facility] Comment on above: Performed By: #### L ACT #### [facility] [address] [place] [address] Dr. Mirian Velasco IG # 0.03 10e3/ul Normal 0.00-0.03 [facility] Comment on above: Performed By: #### L ACT #### [facility] [address] [place] [address] Dr. Mirian Velasco IG % 0.4 % Normal 0.0-0.5 [facility] Comment on above: Performed By: #### L ACT #### [facility] [address] [place] [address] Dr. Mirian Velasco LYMPH # 1.8 103/ul Normal 1.2-3.8 [facility] Comment on above: Performed By: #### L ACT #### [facility] [address] [place] [address] Dr. Mirian Velasco Lymphocytes/100 WBC (Bld) 25.2 % Normal 20.5-60.0 [facility] Comment on above: Performed By: #### L ACT #### [facility] [address] [place] [address] Dr. Mirian Velasco MANUAL DIFF REQ NO Normal [facility] Comment on above: Performed By: #### L ACT #### [facility] [address] [place] [address] Dr. Mirian Velasco MCH (RBC) [Entitic mass] 29.0 pg Normal 26.7-34.0 [facility] Comment on above: Performed By: #### L ACT #### [facility] [address] [place] [address] Dr. Mirian Velasco MCHC (RBC) [Mass/Vol] 32.4 g/dL Normal 29.9-35.2 [facility] Comment on above: Performed By: #### L ACT #### [facility] [address] [place] [address] Dr. Mirian Velasco MCV (RBC) [Entitic vol] 89.4 fL Normal 81.0-99.0 [facility] Comment on above: Performed By: #### L ACT #### [facility] [address] [place] [address] Dr. Mirian Velasco MONO # 0.4 103/ul Normal 0.3-0.8 [facility] Comment on above: Performed By: #### L ACT #### [facility] [address] [address] [address] Mirian Velasco Monocytes/100 WBC (Bld) 5.8 % Normal 1.7-12.0 [facility] Comment on above: Performed By: #### L ACT #### [facility] [address] [place] [address] Dr. Mirian Velasco NEUT # 4.6 103/ul Normal 1.4-6.5 [facility] Comment on above: Performed By: #### L ACT #### [facility] [address] [place] [address] Dr. Mirian Velasco Neutrophils/100 WBC (Bld) 64.3 % Normal 43.0-75.0 [facility] Comment on above: Performed By: #### L ACT #### [facility] [address] [place] [address] Dr. Mirian Velasco Platelet mean volume (Bld) [Entitic vol] 8.6 fL Critically low 9.5-13.5 [facility] Comment on above: Performed By: #### L ACT #### [facility] [address] [place] [address] Dr. Mirian Velasco PLT 597 103/ul Critically high 150-450 [facility] Comment on above: Performed By: #### L ACT #### [facility] [address] [place] [address] Dr. Mirian Velasco RBC 4.17 106/ul Critically low 4.20-5.40 [facility] Comment on above: Performed By: #### L ACT #### [facility] [address] [place] [address] Dr. Mirian Velasco WBC 7.2 103/ul Normal 4.0-11.0 [facility] Comment on above: Performed By: #### L ACT #### [facility] [address] [place] [address] ABD/PELVIS WO CONon [...] excluded. Clinical correlation recommended. Electronically authenticated by: MAKENNA TRIPLETT Date: 2022-04-17 11:19 Normal [facility] ER URINE PROFILEon 2 Bilirubin Ql (U) Negative Normal NEGATIVE [facility] Comment on above: Performed By: #### P T #### [facility] [address] [place] [address] Dr. Mirian Velasco Clarity (U) CLEAR Normal CLEAR [facility] Comment on above: Performed By: #### P T #### [facility] [address] [place] [address] Dr. Mirian Velasco Color (U) YELLOW Normal YELLOW [facility] Comment on above: Performed By: #### P T #### [facility] [address] [place] [address] Dr. Mirian KING A micrscopic examination will be performed if indicated. Normal [facility] Comment on above: Performed By: #### P T #### [facility] [facility] [address] [place] [address] Dr. Mirian Velasco Glucose Ql (U) Negative Normal NEGATIVE [facility] Comment on above: Performed By: #### P T #### [facility] [address] [place] [address] Dr. Mirian Velasco Hemoglobin Ql (U) Negative Normal NEGATIVE [facility] Comment on above: Performed By: #### P T #### [facility] [address] [place] [address] Dr. Mirian Velasco Ketones Ql (U) Negative Normal NEGATIVE [facility] Comment on above: Performed By: #### P T #### [facility] [address] [place] [address] Dr. Mirian Velasco LEUKOCYTES Negative Normal NEGATIVE [facility] Comment on above: Performed By: #### P T #### [facility] [address] [place] [address] Dr. Mirian Velasco Nitrite Ql (U) Negative Normal NEGATIVE [facility] Comment on above: Performed By: #### P T #### [facility] [address] [place] [address] Dr. Mirian Velasco pH (U) 5.5 [pH] Normal 5-9 [facility] Comment on above: Performed By: #### P T #### [facility] [address] [place] [address] Dr. Mirian Velasco SPEC GRAVITY >=1.030 Abnormal 1.005-<=1.025 [facility] Comment on above: Performed By: #### P T #### [facility] [address] [place] [address] Dr. Mirian Velasco UA PROTEIN Negative Normal NEGATIVE/ TRACE [facility] Comment on above: Performed By: #### P T #### [facility] [address] [place] [address] Dr. Mirian Velasco UR MICRO IND NOT INDICATED Normal [facility] Comment on above: Performed By: #### P T #### [facility] [address] [place] [address] Dr. Mirian Velasco Urobilinogen Qn (U) 0.2 {Lyubov'U}/dL Normal 0.2 - 1. 0 [facility] Comment on above: Performed By: #### P T #### [facility] [address] [place] [address] Dr. Mirian Velasco LIPASEon 04-17-2022 Lipase [Catalytic activity/Vol] 117.0 U/L Normal 73.0-393.0 [facility] Comment on above: Performed By: #### P T #### [facility] [address] [place] [address] Dr. Mirian Velasco PROF 14(COMP METB)on 022 Albumin [Mass/Vol] 3.5 g/dL Normal 3.4-5.0 [facility] Comment on above: Performed By: #### P T #### [facility] [address] [place] [address] Dr. Mirian Velasco Albumin/Globulin [Mass ratio] 0.9 {ratio} Normal [facility] Comment on above: Performed By: #### P T #### [facility] [address] [place] [address] Dr. Mirian Velasco ALP [Catalytic activity/Vol] 237 U/L Critically high 46-116 [facility] Comment on above: Performed By: #### P T #### [facility] [address] [place] [address] Dr. Mirian Velasco ALT [Catalytic activity/Vol] 53 U/L Normal 14-59 [facility] Comment on above: Performed By: #### P T #### [facility] [address] [place] [address] Dr. Mirian Velasco Anion gap [Moles/Vol] 11.0 mmol/L Normal [facility] Comment on above: Performed By: #### P T #### [facility] [address] [place] [address] Dr. Mirian Velasco AST [Catalytic activity/Vol] 45 U/L Critically high 15-37 [facility] Comment on above: Performed By: #### P T #### [facility] [address] [address] [address] Mirian Velasco Bilirubin [Mass/Vol] 0.2 mg/dL Normal 0.2-1.0 [facility] Comment on above: Performed By: #### P T #### [facility] [address] [address] [address] Mirian Velasco Calcium [Mass/Vol] 9.3 mg/dL Normal 8.5-10.1 [facility] Comment on above: Performed By: #### P T #### [facility] [address] [place] [address] Dr. Mirian Velasco Chloride [Moles/Vol] 105 mmol/L Normal 98-107 [facility] Comment on above: Performed By: #### P T #### [facility] [address] [place] [address] Dr. Mirian Velasco CO2 [Moles/Vol] 29.5 mmol/L Normal 21.0-32.0 [facility] Comment on above: Performed By: #### P T #### [facility] [address] [place] [address] Dr. Mirian Velasco Creatinine [Mass/Vol] 0.69 mg/dL Normal 0.55-1.02 [facility] Comment on above: Performed By: #### P T #### [facility] [address] [address] [address] Mirian Velasco EGFR-AF NAURUAN >110 Normal >=60 [facility] Comment on above: Performed By: #### P T #### [facility] [address] [place] [address] Dr. Mirian Velasco EGFR-NON AF NAURUAN >90 Normal >=60 [facility] Comment on above: Performed By: #### P T #### [facility] [address] [address] [address] Mirian Velasco Globulin (S) [Mass/Vol] 4.0 g/dL Normal [facility] Comment on above: Performed By: #### P T #### [facility] [address] [address] [address] Mirian Velasco Glucose [Mass/Vol] 107 mg/dL Critically high 74-106 T [facility] Comment on above: Performed By: #### P T #### [facility] [address] [address] [address] Mirian Velasco Potassium [Moles/Vol] 4.5 mmol/L Normal 3.5-5.1 [facility] Comment on above: Performed By: #### P T #### [facility] [address] [place] [address] Dr. Mirian Velasco Protein [Mass/Vol] 7.5 g/dL Normal 6.4-8.2 [facility] Comment on above: Performed By: #### P T #### [facility] [address] [address] [address] Mirian Velasco Sodium [Moles/Vol] 141 mmol/L Normal 136-145 [facility] Comment on above: Performed By: #### P T #### [facility] [address] [address] [address] Mirian Velasco Urea nitrogen [Mass/Vol] 11.0 mg/dL Normal 7.0-18.0 [facility] Comment on above: Performed By: #### P T #### [facility] [address] [address] [address] Mirian Velasco Urea nitrogen/Creatinine [Mass ratio] 15.9 mg/mg Normal [facility] Comment on above: Performed By: #### P T #### [facility] [address] [place] [address] Dr. Mirian Velasco XR CHEST 1 Von 04-17-2022 XR CHEST 1 V EXAM: Chest x-ray HISTORY: Pain. COMPARISON: 02/20/2022 TECHNIQUE: AP portable upright view of the chest. FINDINGS: Heart and Vascularity are unremarkable. Lungs are free of focal infiltrates. No effusions are noted. Impression: No acute heart or lung disease identified. Electronically authenticated by: NICKI BUTT Date: 2022-04-17 11:03 Normal [facility] Basic metabolic 2000 panelon 04-05-2022 Anion gap [Moles/Vol] 13 mmol/L Normal 9-18 [facility] Comment on above: Order Comment: Leanne terry Type: BLOOD SPECIMEN Ordering Facility: [facility] Address: [address] [place] [address] Performed By: #### 5 8410-2 #### [facility] CLIA [id number] [address] [place] [address] [place] Calcium [Mass/Vol] 9.0 mg/dL Normal 8.5-10.2 [facility] Comment on above: Order Comment: Leanne terry Type: BLOOD SPECIMEN Ordering Facility: [facility] Address: [address] [place] [address] Performed By: #### 5 8410-2 #### [facility] CLIA [id number] [address] [place] [address] [place] Chloride [Moles/Vol] 104 mmol/L Normal 97-105 [facility] Comment on above: Order Comment: Leanne terry Type: BLOOD SPECIMEN Ordering Facility: [facility] Address: [address] [place] [address] Performed By: #### 5 8410-2 #### [facility] CLIA [id number] [address] [place] [address] [place] CO2 [Moles/Vol] 25 mmol/L Normal 22-30 [facility] Comment on above: Order Comment: Everettei harrison Type: BLOOD SPECIMEN Ordering Facility: [facility] Address: [address] [place] [address] Performed By: #### 5 8410-2 #### [facility] CLIA [id number] [address] [place] [address] [place] Creatinine [Mass/Vol] 0.65 mg/dL Normal 0.58-0.96 [facility] Comment on above: Order Comment: Leanne terry Type: BLOOD SPECIMEN Ordering Facility: [facility] Address: [address] [address] Performed By: #### 5 8410-2 #### [facility] CLIA [id number] [address] [place] [address] [place] ESTIMATED GLOMERULAR FILTRATION RATE 108 mL/min/1.73m??? Normal >=60 [facility] Comment on above: Order Comment: Leanne terry Type: BLOOD SPECIMEN Ordering Facility: [facility] Address: [address] [address] Result Comment: Mary mated Glomerular Filtration Rate [...] GFR. Performed By: #### 5 8410-2 #### [facility] CLIA [id number] [address] [place] [address] [place] Glucose [Mass/Vol] 109 mg/dL High 74-99 [facility] Comment on above: Order Comment: Leanne terry Type: BLOOD SPECIMEN Ordering Facility: [facility] Address: [address] [place] [address] Result Comment: [employer] [...] 1). Performed By: #### 5 8410-2 #### [facility] CLIA [id number] [address] [place] [address] [place] Potassium [Moles/Vol] 3.9 mmol/L Normal 3.7-5.1 [facility] Comment on above: Order Comment: Speci men Type: BLOOD SPECIMEN Ordering Facility: [facility] Address: [address] [place] [address] Performed By: #### 5 8410-2 #### [facility] CLIA [id number] [address] [place] [address] [place] Sodium [Moles/Vol] 142 mmol/L Normal 136-144 [facility] Comment on above: Order Comment: Speci men Type: BLOOD SPECIMEN Ordering Facility: [facility] Address: [address] [place] [address] Performed By: #### 5 8410-2 #### [facility] CLIA [id number] [address] [place] [address] [place] Urea nitrogen [Mass/Vol] 7 mg/dL Normal 7-21 [facility] Comment on above: Order Comment: Speci men Type: BLOOD SPECIMEN Ordering Facility: [facility] Address: [address] [place] [address] Performed By: #### 5 8410-2 #### [facility] CLIA [id number] [address] [place] [address] [place] CBC W Auto Differential pane l (Bld)on 04-05-2022 Basophils (Bld) [#/Vol] 0.05 10*3/uL Normal <0.11 [facility] Comment on above: Order Comment: Speci men Type: BLOOD SPECIMENOrdering Facility: [facility] Address: [address] [place] [address] Performed By: #### B MP #### [place] [address] Basophils/100 WBC (Bld) 0.7 % Normal [facility] Comment on above: Order Comment: Speci men Type: BLOOD SPECIMENOrdering Facility: [facility] Address: [address] [place] [address] Performed By: #### B MP #### [address] [id number] Differential cell count method Nom (Bld) Auto Normal [facility] Comment on above: Order Comment: Speci men Type: BLOOD SPECIMENOrdering Facility: [facility] Address: [address] [place] [address] Performed By: #### B MP #### [address] [address] Eosinophils (Bld) [#/Vol] 0.55 10*3/uL High <0.46 [facility] Comment on above: Order Comment: Speci men Type: BLOOD SPECIMENOrdering Facility: [facility] Address: [address] [place] [address] Performed By: #### B MP #### [address] [address] Eosinophils/100 WBC (Bld) 8.2 % Normal [facility] Comment on above: Order Comment: Speci men Type: BLOOD SPECIMENOrdering Facility: [facility] Address: [address] [place] [address] Performed By: #### B MP #### [address] [address] Erythrocyte distribution width (RBC) [Ratio] 12.8 % Normal 11.5-15.0 [facility] Comment on above: Order Comment: Speci men Type: BLOOD SPECIMENOrdering Facility: [facility] Address: [address] [place] [address] Performed By: #### B MP #### [address] [address] Hematocrit (Bld) [Volume fraction] 31.1 % Low 36.0-46.0 [facility] Comment on above: Order Comment: Speci men Type: BLOOD SPECIMENOrdering Facility: [facility] Address: [address] [place] [address] Performed By: #### B MP #### [address] [phone] Hemoglobin (Bld) [Mass/Vol] 10.5 g/dL Low 11.5-15.5 [facility] Comment on above: Order Comment: Speci men Type: BLOOD SPECIMENOrdering Facility: [facility] Address: [address] [place] [address] Performed By: #### B MP #### [address] [phone] IMMATURE GRAN % 0.4 % Normal [facility] Comment on above: Order Comment: Speci men Type: BLOOD SPECIMENOrdering Facility: [facility] Address: [address] [place] [address] Performed By: #### B MP #### [phone] IMMATURE GRAN ABS 0.03 k/uL Normal <0.10 [facility] Comment on above: Order Comment: Speci men Type: BLOOD SPECIMENOrdering Facility: [facility] Address: [address] [place] [address] Performed By: #### B MP #### [address] [phone] Lymphocytes (Bld) [#/Vol] 1.47 10*3/uL Normal 1.00-4.00 [facility] Comment on above: Order Comment: Speci men Type: BLOOD SPECIMENOrdering Facility: [facility] Address: [address] [place] [address] Performed By: #### B MP #### [address] [phone] Lymphocytes/100 WBC (Bld) 22.0 % Normal [facility] Comment on above: Order Comment: Speci men Type: BLOOD SPECIMENOrdering Facility: [facility] Address: [address] [place] [address] Performed By: #### B MP #### [address] [phone] MCH (RBC) [Entitic mass] 29.9 pg Normal 26.0-34.0 [facility] Comment on above: Order Comment: Speci men Type: BLOOD SPECIMENOrdering Facility: [facility] Address: [address] [place] [address] Performed By: #### B MP #### [address] [phone] MCHC (RBC) [Mass/Vol] 33.8 g/dL Normal 30.5-36.0 [facility] Comment on above: Order Comment: Speci men Type: BLOOD SPECIMENOrdering Facility: [facility] Address: [address] [place] [address] Performed By: #### B MP #### [address] [phone] MCV (RBC) [Entitic vol] 88.6 fL Normal 80.0-100.0 [facility] Comment on above: Order Comment: Speci men Type: BLOOD SPECIMENOrdering Facility: [facility] Address: [address] [place] [address] Performed By: #### B MP #### [address] [phone] Monocytes (Bld) [#/Vol] 0.50 10*3/uL Normal <0.87 [facility] Comment on above: Order Comment: Speci men Type: BLOOD SPECIMENOrdering Facility: [facility] Address: [address] [place] [address] Performed By: #### B MP #### [phone] Monocytes/100 WBC (Bld) 7.5 % Normal [facility] Comment on above: Order Comment: Speci men Type: BLOOD SPECIMENOrdering Facility: [facility] Address: [address] [place] [address] Performed By: #### B MP #### [address] [phone] Neutrophils (Bld) [#/Vol] 4.08 10*3/uL Normal 1.45-7.50 [facility] Comment on above: Order Comment: Speci men Type: BLOOD SPECIMENOrdering Facility: [facility] Address: [address] [place] [address] Performed By: #### B MP #### [address] [phone] Neutrophils/100 WBC (Bld) 61.2 % Normal [facility] Comment on above: Order Comment: Speci men Type: BLOOD SPECIMENOrdering Facility: [facility] Address: [address] [place] [address] Performed By: #### B MP #### [phone] Nucleated RBC (Bld) [#/Vol] 10*3/uL Normal <0.01 [facility] Comment on above: Order Comment: Speci men Type: BLOOD SPECIMENOrdering Facility: [facility] Address: [address] [place] [address] Performed By: #### B MP #### [address] [phone] Nucleated RBC/100 WBC (Bld) [Ratio] 0.0 /100 WBC Normal [facility] Comment on above: Order Comment: Speci men Type: BLOOD SPECIMENOrdering Facility: [facility] Address: [address] [place] [address] Performed By: #### B MP #### [address] [phone] Platelet mean volume (Bld) [Entitic vol] 8.9 fL Low 9.0-12.7 [facility] Comment on above: Order Comment: Speci men Type: BLOOD SPECIMENOrdering Facility: [facility] Address: [address] [place] [address] Performed By: #### B MP #### [address] [phone] Platelets (Bld) [#/Vol] 455 10*3/uL High 150-400 [facility] Comment on above: Order Comment: Speci men Type: BLOOD SPECIMENOrdering Facility: [facility] Address: [address] [place] [address] Performed By: #### B MP #### [place] [address] RBC (Bld) [#/Vol] 3.51 10*6/uL Low 3.90-5.20 [facility] Comment on above: Order Comment: Speci men Type: BLOOD SPECIMENOrdering Facility: [facility] Address: [address] [place] [address] Performed By: #### B MP #### [address] [phone] WBC (Bld) [#/Vol] 6.68 10*3/uL Normal 3.70-11.00 [facility] Comment on above: Order Comment: Speci men Type: BLOOD SPECIMENOrdering Facility: [facility] Address: [address] [place] [address] Performed By: #### B MP #### [place] [address] CNDSon 04-05-2022 CNDS HNO ID: [id number] Author: Jessi Sheets APRN.CHEERLEADING COACH Service: Colorectal Author Type: Nurse Practitioner Type: [...] of the summary. CONSULTING TEAMS DURING HOSPITALIZATION: [facility] Treatment Team: Attending Provider: Mary Obrien MD [...] only. Pain controlled with TAPs and a URBAN SOCIOLOGIST. Remained nauseated. POD4 re-advanced to full liquids [...] by mo (more content not included)... Normal [facility] Magnesium [facility] 04-05 Magnesium [Mass/Vol] 2.0 mg/dL Normal 1.7-2.3 [facility] Comment on above: Order Comment: Speci men Type: BLOOD SPECIMEN Order[facility] Facility[facility] Address: [address] [place] [address] Performed By: #### 5 8410-2 #### [facility] CLIA [id number] [address] NURSING PROGon 04-05-2022 NURSING PROG HNO ID: [id number] Author: Liliana Mayer RN Service: ? 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 This note was completed by: Liliana Mayer [facility] NURSING PROG HNO ID: [id number] Author: Liliana Mayer RN Service: ? Author [...] This note was completed by: Liliana Mayer [facility] NURSING PROG HNO ID: [id number] Author: Tez Gu RN Service: ? Author Type: Registered Nurse Type: Nursing Progress Note Filed: 04/04/2022 10:58 PM Note Text: Nursing Progress Note Patient Name: Mary Leal Patient Location: [id number]-[id number] __ Daily Note:04/04/22 2140 Pt is alert and oriented x3. Pt mabulating independently. Surgical sites intact. Pt refusing IVF, pt states she drinks enough water. This note was completed by: Tez Gu [facility] NUTRITIONon 04-05-2022 NUTRITION HNO ID: [id number] Author: Merced Morales DTR Service: Nutrition Therapy Author Type: Health Professional Type: Nutrition Filed: 04/05/2022 10:42 AM Note Text: NUTRITION THERAPY LEAD CONSULTANT NOTE SERVICE DATE: 04/05/2022 SERVICE TIME: 9:45 [...] April 05, 2022 TIME: 9:54 AM Normal [facility] Phosphate SerPl-mCncon 04-05 Phosphate [Mass/Vol] 4.6 mg/dL Normal 2.7-4.8 [facility] Comment on above: Order Comment: Speci men Type: BLOOD SPECIMEN [facility] Address: [address] [place] [address] Performed By: #### 5 8410-2 #### [facility] CLIA [id number] [address] [place] [address] [place] Basic metabolic 2000 panelon 04-04-2022 Anion gap [Moles/Vol] 10 mmol/L Normal 9-18 [facility] Comment on above: Order Comment: Speci men Type: BLOOD SPECIMENOrdering Facility: [facility] Address: [address] [place] [address] Performed By: #### 2 4321-2, , 2776-11 ####[facility] [id number] [place] [address] [place] Calcium [Mass/Vol] 8.9 mg/dL Normal 8.5-10.2 [facility] Comment on above: Order Comment: Speci men Type: BLOOD SPECIMENOrdering Facility: [facility] Address: [address] [place] [address] Performed By: #### 2 4321-2, , 2776-11 ####[facility] [id number] [address] [id number] [place] Chloride [Moles/Vol] 104 mmol/L Normal 97-105 [facility] Comment on above: Order Comment: Speci men Type: BLOOD SPECIMENOrdering Facility: [facility] Address: [address] [place], [place] [address] Performed By: #### 2 4321-2, , 2776-11 ####[facility] [id number] [address] [id number] [place] CO2 [Moles/Vol] 26 mmol/L Normal 22-30 [facility] Comment on above: Order Comment: Speci men Type: BLOOD SPECIMENOrdering Facility: [facility] Address: [address] [place], [place] [address] Performed By: #### 2 4321-2, , 2776-11 ####[facility] LABORATORYCLIA [id number] [address] STATES OF [facility] Creatinine [Mass/Vol] 0.56 mg/dL Low 0.58-0.96 [facility] Comment on above: Order Comment: Speci men Type: BLOOD SPECIMENOrdering Facility: [facility] Address: [address] [place] [address] Performed By: #### 2 4321-2, , 2776-11 ####[facility] LABORATORYCLIA [id number] [address] ESTIMATED GLOMERULAR FILTRATION RATE 112 mL/min/1.73m??? Normal >=60 [facility] Comment on above: Order Comment: Speci men Type: BLOOD SPECIMENOrdering Facility: [facility] Address: [address] [place] [address] Result Comment: Mary mated Glomerular Filtration Rate [...] By: #### 2 4321-2, , 2776-11 ####[facility]ORECLIA [id number] [address] [place] [id number] [place] Glucose [Mass/Vol] 112 mg/dL High 74-99 [facility] Comment on above: Order Comment: Speci men Type: BLOOD SPECIMENOrdering Facility: [facility] Address: [address] [place], [place] [id number] Result Comment: The [place] [employer] [...] #### 2 4321-2, , 2776-11 ####[facility] [id number] [address] [place] [id number] [place] Potassium [Moles/Vol] 3.9 mmol/L Normal 3.7-5.1 [facility] Comment on above: Order Comment: Speci men Type: BLOOD SPECIMENOrdering Facility: [facility] Address: [address] [place], [place] [phone] Performed By: #### 2 4321-2, , 2776-11 ####[facility]ORY[facility] [id number] [address] [id number] [place] Sodium [Moles/Vol] 140 mmol/L Normal 136-144 [facility] Comment on above: Order Comment: Speci men Type: BLOOD SPECIMENOrdering Facility: [facility] Address: [address] [place], [place] [id number] Performed By: #### 2 4321-2, , 2776-11 ####[facility] [id number] [place] [address] [place] Urea nitrogen [Mass/Vol] 3 mg/dL Low 7- [facility] Comment on above: Order Comment: Speci men Type: BLOOD SPECIMENOrdering Facility: [facility] Address: [address] [place] [address] Performed By: #### 2 4321-2, 36365-6, 2777-1 ####[facility]ORY[facility]IA [id number] [place] [address] [place] CBC W Auto Differential pane l (Bld)on 04-04-2022 Basophils (Bld) [#/Vol] 0.03 10*3/uL Normal <0.11 [facility] Comment on above: Order Comment: Speci men Type: BLOOD SPECIMEN Ordering Facility: [facility] Address: [address] [place] [address] Performed By: #### 5 7021-8 #### [facility] CLIA [id number] [address] [place] [address] [place] Basophils/100 WBC (Bld) 0.5 % Normal [facility] Comment on above: Order Comment: Speci men Type: BLOOD SPECIMEN Ordering Facility: [facility] Address: [address] [place] [address] Performed By: #### 5 7021-8 #### [facility] CLIA [id number] [address] [place] [address] [place] Differential cell count method Nom (Bld) Auto Normal [facility] Comment on above: Order Comment: Speci men Type: BLOOD SPECIMEN Ordering Facility: [facility] Address: [address] [place] [address] Performed By: #### 5 7021-8 #### [facility] CLIA [id number] [address] [place] [address] [place] Eosinophils (Bld) [#/Vol] 0.48 10*3/uL High <0.46 [facility] Comment on above: Order Comment: Speci men Type: BLOOD SPECIMEN Ordering Facility: [facility] Address: [address] [place] [address] Performed By: #### 5 7021-8 #### [facility] CLIA [id number] [address] [place] [address] [place] Eosinophils/100 WBC (Bld) 7.7 % Normal [facility] Comment on above: Order Comment: Speci men Type: BLOOD SPECIMEN Ordering Facility: [facility] Address: [address] [place] [address] Performed By: #### 5 7021-8 #### [facility] CLIA [id number] [address] [place] [address] [place] Erythrocyte distribution width (RBC) [Ratio] 12.7 % Normal 11.5-15.0 [facility] Comment on above: Order Comment: Speci men Type: BLOOD SPECIMEN Ordering Facility: [facility] Address: [address] [place] [address] Performed By: #### 5 7021-8 #### [facility] CLIA [id number] [address] [place] [address] [place] Hematocrit (Bld) [Volume fraction] 31.2 % Low 36.0-46.0 [facility] Comment on above: Order Comment: Speci men Type: BLOOD SPECIMEN Ordering Facility: [facility] Address: [address] [place] [address] Performed By: #### 5 7021-8 #### [facility] CLIA [id number] [address] [place] [address] [place] Hemoglobin (Bld) [Mass/Vol] 10.7 g/dL Low 11.5-15.5 [facility] Comment on above: Order Comment: Speci men Type: BLOOD SPECIMEN Ordering Facility: [facility] Address: [address] [place] [address] Performed By: #### 5 7021-8 #### [facility] CLIA [id number] [address] [place] [address] [place] IMMATURE GRAN % 0.5 % Normal [facility] Comment on above: Order Comment: Speci men Type: BLOOD SPECIMEN Ordering Facility: [facility] Address: [address] [place] [address] Performed By: #### 5 7021-8 #### [facility] CLIA [id number] [address] [place] [address] [place] IMMATURE GRAN ABS 0.03 k/uL Normal <0.10 [facility] Comment on above: Order Comment: Speci men Type: BLOOD SPECIMEN Ordering Facility: [facility] Address: [address] [place] [address] Performed By: #### 5 7021-8 #### [facility] CLIA [id number] [address] [place] [address] Lymphocytes (Bld) [#/Vol] 1.13 10*3/uL Normal 1.00-4.00 [facility] Comment on above: Order Comment: Speci men Type: BLOOD SPECIMEN Ordering Facility: [facility] Address: [address] [place] [address] Performed By: #### 5 7021-8 #### [facility] CLIA [id number] [address] [place] [address] Lymphocytes/100 WBC (Bld) 18.2 % Normal [facility] Comment on above: Order Comment: Speci men Type: BLOOD SPECIMEN Ordering Facility: [facility] Address: [address] [place] [address] Performed By: #### 5 7021-8 #### [facility] CLIA [id number] [address] [place] [address] [place] MCH (RBC) [Entitic mass] 29.9 pg Normal 26.0-34.0 [facility] Comment on above: Order Comment: Speci men Type: BLOOD SPECIMEN Ordering Facility: [facility] Address: [address] [place] [address] Performed By: #### 5 7021-8 #### [facility] CLIA [id number] [address] [place] [address] [place] MCHC (RBC) [Mass/Vol] 34.3 g/dL Normal 30.5-36.0 [facility] Comment on above: Order Comment: Speci men Type: BLOOD SPECIMEN [facility] Address: [address] [place] [address] Performed By: #### 5 7021-8 #### [facility] CLIA [id number] [address] [place] [address] [place] MCV (RBC) [Entitic vol] 87.2 fL Normal 80.0-100.0 [facility] Comment on above: Order Comment: Speci men Type: BLOOD SPECIMEN Ordering Facility: [facility] Address: [address] [place] [address] Performed By: #### 5 7021-8 #### [facility] CLIA [id number] [address] [place] [address] [place] Monocytes (Bld) [#/Vol] 0.36 10*3/uL Normal <0.87 [facility] Comment on above: Order Comment: Speci men Type: BLOOD SPECIMEN Ordering Facility: [facility] Address: [address] [place] [address] Performed By: #### 5 7021-8 #### [facility] CLIA [id number] [address] [place] [address] [place] Monocytes/100 WBC (Bld) 5.8 % Normal [facility] Comment on above: Order Comment: Speci men Type: BLOOD SPECIMEN Ordering [facility] Address: [address] [place] [address] Performed By: #### 5 7021-8 #### [facility] CLIA [id number] [address] [place] [address] [place] Neutrophils (Bld) [#/Vol] 4.18 10*3/uL Normal 1.45-7.50 [facility] Comment on above: Order Comment: Speci men Type: BLOOD SPECIMEN Ordering [facility] Address: [address] [place] [address] Performed By: #### 5 7021-8 #### [facility] CLIA [id number] [address] [place] [address] [place] Neutrophils/100 WBC (Bld) 67.3 % Normal [facility] Comment on above: Order Comment: Speci men Type: BLOOD SPECIMEN Order[facility] Address: [address] [place] [address] Performed By: #### 5 7021-8 #### [facility] CLIA [id number] [address] [place] [address] [place] Nucleated RBC (Bld) [#/Vol] 10*3/uL Normal <0.01 [facility] Comment on above: Order Comment: Speci men Type: BLOOD SPECIMEN Order[facility] Address: [address] [place] [address] Performed By: #### 5 7021-8 #### [facility] CLIA [id number] [address] [place] [address] [place] Nucleated RBC/100 WBC (Bld) [Ratio] 0.0 /100 WBC Normal [facility] Comment on above: Order Comment: Speci men Type: BLOOD SPECIMEN Ordering [facility] Address: [address] [place] [address] Performed By: #### 5 7021-8 #### [facility] CLIA [id number] [address] [place] [address] [place] Platelet mean volume (Bld) [Entitic vol] 8.7 fL Low 9.0-12.7 [facility] Comment on above: Order Comment: Speci men Type: BLOOD SPECIMEN Ordering Facility: [facility] Address: [address] [place], [place] [address] Performed By: #### 5 7021-8 #### [facility] CLIA [id number] [address] [place] [address] [place] Platelets (Bld) [#/Vol] 436 10*3/uL High 150-400 [facility] Comment on above: Order Comment: Speci men Type: BLOOD SPECIMEN Ordering [facility] Address: [address] [place] [address] Performed By: #### 5 7021-8 #### [facility] CLIA [id number] [address] [place] [address] [place] RBC (Bld) [#/Vol] 3.58 10*6/uL Low 3.90-5.20 [facility] Comment on above: Order Comment: Speci men Type: BLOOD SPECIMEN Ordering [facility]: [facility] Address: [address] [place] [address] Performed By: #### 5 7021-8 #### [facility] [place] [id number] [address] [place] [address] WBC (Bld) [#/Vol] 6.21 10*3/uL Normal 3.70-11.00 [facility] Comment on above: Order Comment: Speci men Type: BLOOD SPECIMEN Ordering [facility] Address: [address] [place] [address] Performed By: #### 5 7021-8 #### [facility] [place] [id number] [address] [place] [address] [facility] [place] Magnesium SerPl-mCncon 04-04 Magnesium [Mass/Vol] 2.1 mg/dL Normal 1.7-2.3 [facility] Comment on above: Order Comment: Speci men Type: BLOOD SPECIMENOrdering Facility: [facility] Address: [address] [place] [address] Performed By: #### 2 4321-2, 12119-5, 2777-1 ####[facility] [id number] [place] [address] [place] NURSING PROGon 04-04-2022 NURSING PROG HNO ID: [id number] Author: Dipti Crowley RN Service: Nursing Author Type: Registered Nurse Type: Nursing Progress Note Filed: 04/04/2022 7:47 PM Note Text: Nursing Progress Note Patient Name: Mary Leal Patient Location: [place] [address]/MK9H-15 __ Daily Note:Patient refusing further IVF. This note was completed by: [facility] NURSING PROG HNO ID: [id number] Author: Dipti Crowley, MAKI Service: Nursing Author Type: Registered Nurse Type: Nursing Progress Note Filed: 04/04/2022 11:11 AM Note Text: Nursing Progress Note Patient Name: Mary Leal Patient Location: [address]/UI5W-28 __ Daily Note: Patient up in chair and up ambulating in hallway with steady gait. VSS. RA POx. IVF as ordered. Transverse and Lap sites INTERNSHIP COORDINATOR with glue. Dressing to old ostomy site CDI. Abdomen soft and tender. Patient states, feeling much better . Diet advanced, yet patient did not take in 25% of tray. Patient informed RN that I am leaving today. Do what you gotta do. I can do all of this at home . Dr Lamas paged and notified, but post call. Will page SR vocational rehabilitation counselor. Will continue to monitor. Call light in reach. This note was completed by: [facility] Phosphate SerPl-mCncon 04-04 Phosphate [Mass/Vol] 3.2 mg/dL Normal 2.7-4.8 [facility] Comment on above: Order Comment: Speci men Type: BLOOD SPECIMENOrdering Facility: [facility] Address: [address] [place] [id number] Performed By: #### 2 4321-2, 26601-5, 2777-1 ####[facility] [id number] [address] STATES OF [facility] ALLIED HEALTHon 04-03-2022 ALLIED HEALTH HNO ID: [id number] Author: MALAIKA Martinez Service: ? Author Type: Manager Pediatric Type: Allied Health Filed: 04/03/2022 5:35 PM [...] Martinez April 03, 2022 5:35 PM Normal [facility] Basic metabolic 2000 panelon 04-03-2022 Anion gap [Moles/Vol] 10 mmol/L Normal 9-18 [facility] Comment on above: Order Comment: Speci men Type: BLOOD SPECIMENOrdering Facility: [facility] Address: [address] [place] [address] Performed By: #### B MP #### [place] [phone] Calcium [Mass/Vol] 8.4 mg/dL Low 8.5-10.2 [facility] Comment on above: Order Comment: Speci men Type: BLOOD SPECIMENOrdering Facility: [facility] Address: [address] [place], [place] [address] Performed By: #### B MP #### [place] [phone] Chloride [Moles/Vol] 103 mmol/L Normal 97-105 [facility] Comment on above: Order Comment: Speci men Type: BLOOD SPECIMENOrdering Facility: [facility] Address: [address] [place], [place] [address] Performed By: #### B MP #### [place] [phone] CO2 [Moles/Vol] 25 mmol/L Normal 22-30 [facility] Comment on above: Order Comment: Speci men Type: BLOOD SPECIMENOrdering Facility: [facility] Address: [address] [place] [address] Performed By: #### B MP #### [place] [phone] Creatinine [Mass/Vol] 0.60 mg/dL Normal 0.58-0.96 [facility] Comment on above: Order Comment: Speci men Type: BLOOD SPECIMENOrdering Facility: [facility] Address: [address] [place] [address] Performed By: #### B MP #### [place] [phone] ESTIMATED GLOMERULAR FILTRATION RATE 110 mL/min/1.73m??? Normal >=60 [facility] Comment on above: Order Comment: Speci men Type: BLOOD SPECIMENOrdering Facility: [facility] Address: [address] [place] [address] Result Comment: Mary mated Glomerular Filtration Rate [...] GFR. Performed By: #### B MP #### [place] [phone] Glucose [Mass/Vol] 106 mg/dL High 74-99 [facility] Comment on above: Order Comment: Speci men Type: BLOOD SPECIMENOrdering Facility: [facility] Address: [address] [place] [address] Result Comment: [employer] [place] [...] 1). Performed By: #### B MP #### [place] [phone] Potassium [Moles/Vol] 3.3 mmol/L Low 3.7-5.1 [facility] Comment on above: Order Comment: Leanne terry Type: BLOOD SPECIMENOrdering Facility: [facility] Address: [address] [place] [address] Performed By: #### B MP #### [place] [phone] Sodium [Moles/Vol] 138 mmol/L Normal 136-144 [facility] Comment on above: Order Comment: Leanne terry Type: BLOOD SPECIMENOrdering Facility: [facility] Address: [address] [place] [address] Performed By: #### B MP #### [place] [phone] Urea nitrogen [Mass/Vol] 4 mg/dL Low 7-21 [facility] Comment on above: Order Comment: Speci men Type: BLOOD SPECIMENOrdering Facility: [facility] Address: [address] [place] [address] Performed By: #### B MP #### [place] [phone] CBC W Auto Differential pane l (Bld)on 04-03-2022 Basophils (Bld) [#/Vol] 0.03 10*3/uL Normal <0.11 [facility] Comment on above: Order Comment: Everettei men Type: BLOOD SPECIMENOrdering Facility: [facility] Address: [address] [place], [place] [address] Performed By: #### B MP #### [place] [phone] Basophils/100 WBC (Bld) 0.4 % Normal [facility] Comment on above: Order Comment: Speci men Type: BLOOD SPECIMENOrdering Facility: [facility] Address: [address] [place] [address] Performed By: #### B MP #### [address] Differential cell count method Nom (Bld) Auto Normal [facility] Comment on above: Order Comment: Speci men Type: BLOOD SPECIMENOrdering Facility: [facility] Address: [address] [place] [address] Performed By: #### B MP #### [address] Eosinophils (Bld) [#/Vol] 0.48 10*3/uL High <0.46 [facility] Comment on above: Order Comment: Speci men Type: BLOOD SPECIMENOrdering Facility: [facility] Address: [address] [place] [address] Performed By: #### B MP #### [address] Eosinophils/100 WBC (Bld) 6.5 % Normal [facility] Comment on above: Order Comment: Speci men Type: BLOOD SPECIMENOrdering Facility: [facility] Address: [address] [place] [address] Performed By: #### B MP #### [address] Erythrocyte distribution width (RBC) [Ratio] 12.5 % Normal 11.5-15.0 [facility] Comment on above: Order Comment: Speci men Type: BLOOD SPECIMENOrdering Facility: [facility] Address: [address] [place] [address] Performed By: #### B MP #### [place] [phone] Hematocrit (Bld) [Volume fraction] 29.5 % Low 36.0-46.0 [facility] Comment on above: Order Comment: Speci men Type: BLOOD SPECIMENOrdering Facility: [facility] Address: [address] [place] [address] Performed By: #### B MP #### [place] [phone] Hemoglobin (Bld) [Mass/Vol] 10.2 g/dL Low 11.5-15.5 [facility] Comment on above: Order Comment: Speci men Type: BLOOD SPECIMENOrdering Facility: [facility] Address: [address] [place] [address] Performed By: #### B MP #### [place] [address] IMMATURE GRAN % 0.5 % Normal [facility] Comment on above: Order Comment: Speci men Type: BLOOD SPECIMENOrdering Facility: [facility] Address: [address] [place] [address] Performed By: #### B MP #### [place] [address] IMMATURE GRAN ABS 0.04 k/uL Normal <0.10 [facility] Comment on above: Order Comment: Speci men Type: BLOOD SPECIMENOrdering Facility: [facility] Address: [address] [place] [address] Performed By: #### B MP #### [address] Lymphocytes (Bld) [#/Vol] 1.11 10*3/uL Normal 1.00-4.00 [facility] Comment on above: Order Comment: Speci men Type: BLOOD SPECIMENOrdering Facility: [facility] Address: [address] [place] [address] Performed By: #### B MP #### [place] [phone] Lymphocytes/100 WBC (Bld) 15.0 % Normal [facility] Comment on above: Order Comment: Speci men Type: BLOOD SPECIMENOrdering Facility: [facility] Address: [address] [place] [address] Performed By: #### B MP #### [place] [phone] MCH (RBC) [Entitic mass] 30.1 pg Normal 26.0-34.0 [facility] Comment on above: Order Comment: Speci men Type: BLOOD SPECIMENOrdering Facility: [facility] Address: [address] [place] [address] Performed By: #### B MP #### [phone] MCHC (RBC) [Mass/Vol] 34.6 g/dL Normal 30.5-36.0 [facility] Comment on above: Order Comment: Speci men Type: BLOOD SPECIMENOrdering Facility: [facility] Address: [address] [place] [address] Performed By: #### B MP #### [phone] MCV (RBC) [Entitic vol] 87.0 fL Normal 80.0-100.0 [facility] Comment on above: Order Comment: Speci men Type: BLOOD SPECIMENOrdering Facility: [facility] Address: [address] [place] [address] Performed By: #### B MP #### [place] [phone] Monocytes (Bld) [#/Vol] 0.46 10*3/uL Normal <0.87 [facility] Comment on above: Order Comment: Speci men Type: BLOOD SPECIMENOrdering Facility: [facility] Address: [address] [place] [address] Performed By: #### B MP #### [place] [phone] Monocytes/100 WBC (Bld) 6.2 % Normal [facility] Comment on above: Order Comment: Speci men Type: BLOOD SPECIMENOrdering Facility: [facility] Address: [address] [place] [address] Performed By: #### B MP #### [phone] Neutrophils (Bld) [#/Vol] 5.27 10*3/uL Normal 1.45-7.50 [facility] Comment on above: Order Comment: Speci men Type: BLOOD SPECIMENOrdering Facility: [facility] Address: [address] [place] [address] Performed By: #### B MP #### [place] [phone] Neutrophils/100 WBC (Bld) 71.4 % Normal [facility] Comment on above: Order Comment: Speci men Type: BLOOD SPECIMENOrdering Facility: [facility] Address: [address] [place] [address] Performed By: #### B MP #### [place] [phone] Nucleated RBC (Bld) [#/Vol] 10*3/uL Normal <0.01 [facility] Comment on above: Order Comment: Speci men Type: BLOOD SPECIMENOrdering Facility: [facility] Address: [address] [place] [address] Performed By: #### B MP #### [place] [phone] Nucleated RBC/100 WBC (Bld) [Ratio] 0.0 /100 WBC Normal [facility] Comment on above: Order Comment: Speci men Type: BLOOD SPECIMENOrdering Facility: [facility] Address: [address] [place] [address] Performed By: #### B MP #### [place] [phone] Platelet mean volume (Bld) [Entitic vol] 8.6 fL Low 9.0-12.7 [facility] Comment on above: Order Comment: Speci men Type: BLOOD SPECIMENOrdering Facility: [facility] Address: [address] [place] [address] Performed By: #### B MP #### [place] [phone] Platelets (Bld) [#/Vol] 342 10*3/uL Normal 150-400 [facility] Comment on above: Order Comment: Speci men Type: BLOOD SPECIMENOrdering Facility: [facility] Address: [address] [place] [address] Performed By: #### B MP #### [place] [phone] RBC (Bld) [#/Vol] 3.39 10*6/uL Low 3.90-5.20 [facility] Comment on above: Order Comment: Speci men Type: BLOOD SPECIMENOrdering Facility: [facility] Address: [address] [place] [address] Performed By: #### B MP #### [place] [phone] WBC (Bld) [#/Vol] 7.39 10*3/uL Normal 3.70-11.00 [facility] Comment on above: Order Comment: Speci men Type: BLOOD SPECIMENOrdering Facility: [facility] Address: [address] [place] [address] Performed By: #### B MP #### [place] [phone] CONSULT PROGon 04-03-2022 CONSULT PROG HNO ID: [id number] Author: Sarwat Huddleston PA-C Service: Pain Management Author Type: Physician Standards Analyst Type: Consult Progress Note Filed: 04/03/2022 8:39 [...] appears comf (more content not included)... Normal [facility] CT ABD/PEL W IVCONon 022 CT [...] Lower thorax: Visualized lung bases are clear. Education Department Registrar (topogram) images: No additional findings. IMPRESSION: Postsurgical [...] collection is present in the lower pelvis Gi Asst: CAPRI Transcribe Date/Time: Apr 03 2022 9:00P Dictated by : SHELBY ESPINOSA MD This examination was interpreted and the report reviewed and electronically signed by: SHELBY ESPINOSA MD on Apr 03 2022 9:12PM EST [id number] [facility] Magnesium SerPl-mCncon 04-03 Magnesium [Mass/Vol] 1.6 mg/dL Low 1.7-2.3 [facility] Comment on above: Order Comment: Speci men Type: BLOOD SPECIMENOrdering Facility: [facility] Address: [address] [place], [place] [id number] Performed By: #### B MP #### [place] [address] NURSING PROGon 04-03-2022 NURSING PROG HNO ID: [id number] Author: Beto Ford RN Service: ? Author Type: Registered Nurse Type: Nursing Progress Note Filed: 04/03/2022 9:39 PM Note Text: Nursing Progress Note Patient Name: Mary Leal Patient Location: [place] [address] __ Daily Note: 2129: Pt declined to have all oral medications. They just go right through me. I cannot take them. . Made RN aware. This note was completed by: Beto Ford [facility] NURSING PROG HNO ID: [id number] Author: Dipti Crowley RN Service: Nursing Author Type: Registered Nurse Type: Nursing Progress Note Filed: 04/03/2022 2:51 PM Note Text: Nursing Progress Note Patient Name: Mary Leal Patient Location: [id number]/ __ Daily Note:Patient unable to tolerate powder form of potassium due to nausea. Patient unable to tolerate IV form, it feels like It's paralyzing my arm . Attempted to dilute boluses and lower rates with no success. SR paged with events ([phone]). Awaiting further orders. This note was completed [facility]: [facility]: [id number] Author: Dipti Crowley RN Service: Nursing Author [...] monitor. This note was completed by: Dipti [facility] NURSING PROG HNO ID: [id number] Author: hCava Remy RN Service: PICC Team Author Type: [...] 03, 2022 TIME: 8:37 AM PAGER/CONTACT #: [facility] NURSING PROG HNO ID: [id number] Author: Kev Leone RN Service: ? Author Type: Registered Nurse Type: Nursing Progress Note Filed: 04/03/2022 3:50 AM Note Text: Nursing Progress Note Patient Name: Mary Leal Patient Location: [place] [address]/[place] [address] __ Daily Note: 2100: Pt refusing all PO meds at this time, states she's concerned that she's not digesting them properly. Paan currently being controlled with bilateral blocks and PRN IV pain medication. This note was completed by: Kev Leone [facility] Phosphate SerPl-mCncon 04-03 Phosphate [Mass/Vol] 3.3 mg/dL Normal 2.7-4.8 [facility] Comment on above: Order Comment: Speci men Type: BLOOD SPECIMENOrdering Facility: [facility] Address: [address] [place] [phone] Performed By: #### B #### [address] [address] [facility] HNO ID: [id number] Author: RT Ban(R) Service: Radiology Author Type: [...] Ban(R) April 02, 2022 9:12 AM Normal [facility] CONSULT PROGon 04-02-2022 CONSULT PROG HNO ID: [id number] Author: Sarwat Huddleston PA-C Service: Pain Management Author Type: Physician Standards Analyst Type: Consult Progress Note Filed: 04/02/2022 9:00 [...] Hematocrit 29.3 5 (more content not included)... [facility] NURSING PROGon 04-02-2022 NURSING PROG HNO ID: [id number] Author: Dipti Crowley, RN Service: Nursing Author Type: Registered Nurse Type: Nursing Progress Note Filed: 04/02/2022 1:23 PM Note Text: Nursing Progress Note Patient Name: Mary Leal Patient Location: [address]/DA5C-86 __ Daily Note: Patient AANDOx3. VSS. RA POx. D51/2NS at 75 ml/hr. B/L Tap Block dressings CDI. Old ostomy with ABD and tape, CDI. Transverse and lap sites INTERNSHIP COORDINATOR with glue. NPO status. Medicated with IV [...] This note was completed by: Dipti Crowley [facility] XR ABDOMEN 1V SUPINEon 04-02 XR [...] may be of help for further evaluation. Gi Asst: CAPRI Transcribe Date/Time: Apr 02 2022 9:16A Dictated by : JOAQUIN BRYANT MD This examination was interpreted and the report reviewed and electronically signed by: JOAQUIN BRYANT MD on Apr 02 2022 9:19AM EST [id number] Normal [facility] Basic metabolic 2000 panelon 04-01-2022 Anion gap [Moles/Vol] 9 mmol/L Normal 9-18 [facility] Comment on above: Order Comment: Speci men Type: BLOOD SPECIMENOrdering Facility: [facility] Address: [address] [place] [address] Performed By: #### B MP #### [place] [phone] Calcium [Mass/Vol] 7.9 mg/dL Low 8.5-10.2 [facility] Comment on above: Order Comment: Speci men Type: BLOOD SPECIMENOrdering Facility: [facility] Address: [address] [place] [address] Performed By: #### B MP #### [phone] Chloride [Moles/Vol] 106 mmol/L High 97-105 [facility] Comment on above: Order Comment: Speci men Type: BLOOD SPECIMENOrdering Facility: [facility] Address: [address] [place] [address] Performed By: #### B MP #### [phone] CO2 [Moles/Vol] 26 mmol/L Normal 22-30 [facility] Comment on above: Order Comment: Speci men Type: BLOOD SPECIMENOrdering Facility: [facility] Address: [address] [place] [address] Performed By: #### B MP #### [place] [phone] Creatinine [Mass/Vol] 0.68 mg/dL Normal 0.58-0.96 [facility] Comment on above: Order Comment: Speci men Type: BLOOD SPECIMENOrdering Facility: [facility] Address: [address] [address] Performed By: #### B MP #### [id number] [place] [address] ESTIMATED GLOMERULAR FILTRATION RATE 107 mL/min/1.73m??? Normal >=60 [facility] Comment on above: Order Comment: Leanne [facility] Type: BLOOD SPECIMENOrdering Facility: [facility] Address: [address] [place] [address] Result Comment: Mary mated Glomerular Filtration Rate [...] GFR. Performed By: #### B MP #### [phone] [place] [address] Glucose [Mass/Vol] 99 mg/dL Normal 74-99 [facility] Comment on above: Order Comment: Leanne harrison Type: BLOOD SPECIMENOrdering Facility: [facility] Address: [address] [place] [address] Result Comment: The [employer] [...] 1). Performed By: #### B MP #### [id number] [place] [address] Potassium [Moles/Vol] 3.7 mmol/L Normal 3.7-5.1 [facility] Comment on above: Order Comment: Speci men Type: BLOOD SPECIMENOrdering Facility: [facility] Address: [address] [place] [address] Performed By: #### B MP #### [place] [phone] Sodium [Moles/Vol] 141 mmol/L Normal 136-144 [facility] Comment on above: Order Comment: Speci men Type: BLOOD SPECIMENOrdering Facility: [facility] Address: [address] [place] [address] Performed By: #### B MP #### [place] [phone] Urea nitrogen [Mass/Vol] 4 mg/dL Low 7-21 [facility] Comment on above: Order Comment: Speci men Type: BLOOD SPECIMENOrdering Facility: [facility] Address: [address] [place] [address] Performed By: #### B MP #### [place] [phone] CBC panel Auto (Bld)on 04-01 Erythrocyte distribution width (RBC) [Ratio] 12.4 % Normal 11.5-15.0 [facility] Comment on above: Order Comment: Speci men Type: BLOOD SPECIMEN [facility] Address: [address] [place] [address] Performed By: #### 5 8410-2 #### [facility] CLIA [id number] [address] [place] [address] OF [facility] Hematocrit (Bld) [Volume fraction] 29.3 % Low 36.0-46.0 [facility] Comment on above: Order Comment: Speci men Type: BLOOD SPECIMEN [facility] Address: [address] [place] [address] Performed By: #### 5 8410-2 #### [facility] CLIA [id number] Hemoglobin (Bld) [Mass/Vol] 9.6 g/dL Low 11.5-15.5 [facility] Comment on above: Order Comment: Speci men Type: BLOOD SPECIMEN [facility] Address: [address] [place] [address] Performed By: #### 5 8410-2 #### [facility] CLIA [id number] [address] [place] [address] [place] MCH (RBC) [Entitic mass] 29.4 pg Normal 26.0-34.0 [facility] Comment on above: Order Comment: Speci men Type: BLOOD SPECIMEN [facility] Address: [address] [place] [address] Performed By: #### 5 8410-2 #### [facility] CLIA [id number] [address] [place] [address] MCHC (RBC) [Mass/Vol] 32.8 g/dL Normal 30.5-36.0 [facility] Comment on above: Order Comment: Speci men Type: BLOOD SPECIMEN [facility] Address: [address] [place] [address] Performed By: #### 5 8410-2 #### [facility] CLIA [id number] [address] [place] [address] MCV (RBC) [Entitic vol] 89.9 fL Normal 80.0-100.0 [facility] Comment on above: Order Comment: Speci men Type: BLOOD SPECIMEN [facility] Address: [address] [place] [address] Performed By: #### 5 8410-2 #### [facility] CLIA [id number] [address] [place] [address] Nucleated RBC (Bld) [#/Vol] 10*3/uL Normal <0.01 [facility] Comment on above: Order Comment: Speci men Type: BLOOD SPECIMEN [facility] Address: [address] [place] [address] Performed By: #### 5 8410-2 #### [facility] CLIA [id number] [address] [place] [address] [place] Platelet mean volume (Bld) [Entitic vol] 8.9 fL Low 9.0-12.7 [facility] Comment on above: Order Comment: Speci men Type: BLOOD SPECIMEN [facility] Address: [address] [place] [address] Performed By: #### 5 8410-2 #### [facility] CLIA [id number] [address] [place] [address] [place] Platelets (Bld) [#/Vol] 282 10*3/uL Normal 150-400 [facility] Comment on above: Order Comment: Speci men Type: BLOOD SPECIMEN [facility] Address: [address] [place] [address] Performed By: #### 5 8410-2 #### [facility] CLIA [id number] [address] [place] [address] [place] RBC (Bld) [#/Vol] 3.26 10*6/uL Low 3.90-5.20 [facility] Comment on above: Order Comment: Speci men Type: BLOOD SPECIMEN [facility] Address: [address] [place] [address] Performed By: #### 5 8410-2 #### [facility] CLIA [id number] [address] [place] [address] [place] WBC (Bld) [#/Vol] 7.39 10*3/uL Normal 3.70-11.00 [facility] Comment on above: Order Comment: Speci men Type: BLOOD SPECIMEN [facility] Address: [address] [place] [address] Performed By: #### 5 8410-2 #### [facility] CLIA [id number] [address] [place] [address] [place] CONSULT PROGon 04-01-2022 CONSULT PROG HNO ID: [id number] Author: Joslny Jain APRN.KWESI Service: Pain Management Author Type: [...] 0.67 Sod (more content not included)... Normal [facility] Magnesium SerPl-mCncon 04-01 Magnesium [Mass/Vol] 1.7 mg/dL Normal 1.7-2.3 [facility] Comment on above: Order Comment: Speci men Type: BLOOD SPECIMENOrdering Facility: [facility] Address: [address] [place] [phone] Performed By: #### B MP #### [place] [address] NURSING PROGon 04-01-2022 NURSING PROG HNO ID: [id number] Author: Tez Gu RN Service: ? Author Type: Registered Nurse Type: Nursing Progress Note Filed: 04/01/2022 9:56 PM Note Text: Nursing Progress Note Patient Name: Mary Leal Patient Location: [address] [place] [address]/UI2J-42 __ Daily Note:04/01/222038 Pt is alert and oriented x3. Surgical sites intact. Tap blocks x2 intact. Made SROC aware of Pt experiencing sharp/stabbing pain in abdomen, rating 9/10. SROC recommended use of PRN Dilaudid This note was completed by: Tez Gu [facility] NURSING PROG HNO ID: [id number] Author: Tez Gu, RN Service: ? Author Type: Registered Nurse Type: Nursing Progress Note Filed: 04/01/2022 1:52 AM Note Text: Nursing Progress Note Patient Name: Mary Leal Patient Location: [address] [address]/[address]-22 __ Daily Note:03/31/222030 Pt is alert and oriented x3. Surgical sites intact. Nerve blocks x2 intact. This note was completed by: Tez [facility] Phosphate SerPl-mCncon 04-01 Phosphate [Mass/Vol] 2.8 mg/dL Normal 2.7-4.8 [facility] Comment on above: Order Comment: Specamena terry Type: BLOOD SPECIMENOrdering Facility: [facility] Address: [address] [place], [place] [phone] Performed By: #### B MP #### [phone] [place] [address] Basic metabolic 2000 panelon 03-31-2022 Anion gap [Moles/Vol] 10 mmol/L Normal 9-18 [facility] Comment on above: Order Comment: Leanne terry Type: BLOOD SPECIMEN [facility] Address: [address] [place], [place] [phone] Performed By: #### 5 8410-2 #### [facility] CLIA [id number] [address] [place] [address] [place] Calcium [Mass/Vol] 8.4 mg/dL Low 8.5-10.2 [facility] Comment on above: Order Comment: Speci men Type: BLOOD SPECIMEN [facility] Address: [address] [place] [address] Performed By: #### 5 8410-2 #### [facility] CLIA [id number] [address] [place] [address] [place] Chloride [Moles/Vol] 107 mmol/L High 97-105 [facility] Comment on above: Order Comment: Speci men Type: BLOOD SPECIMEN [facility] Address: [address] [place] [address] Performed By: #### 5 8410-2 #### [facility] CLIA [id number] [address] [place] [address] [place] CO2 [Moles/Vol] 23 mmol/L Normal 22-30 [facility] Comment on above: Order Comment: Speci men Type: BLOOD SPECIMEN [facility] Address: [address] [place] [address] Performed By: #### 5 8410-2 #### [facility] CLIA [id number] [address] [place] [address] [place] Creatinine [Mass/Vol] 0.67 mg/dL Normal 0.58-0.96 [facility] Comment on above: Order Comment: Speci men Type: BLOOD SPECIMEN [facility] Address: [address] [place] [address] Performed By: #### 5 8410-2 #### [facility] CLIA [id number] [address] [place] [address] [place] ESTIMATED GLOMERULAR FILTRATION RATE 107 mL/min/1.73m??? Normal >=60 [facility] Comment on above: Order Comment: Speci men Type: BLOOD SPECIMEN [facility] Address: [address] [phone] Result Comment: Mary mated Glomerular Filtration Rate [...] GFR. Performed By: #### 5 8410-2 #### [facility] CLIA [id number] [address] [place] [address] [place] Glucose [Mass/Vol] 84 mg/dL Normal 74-99 [facility] Comment on above: Order Comment: Leanne terry Type: BLOOD SPECIMEN [facility] Address: [address] [place] [address] Result Comment: The [employer] [...] 1). Performed By: #### 5 8410-2 #### [facility] CLIA [id number] [address] [place] [address] [place] Potassium [Moles/Vol] 3.8 mmol/L Normal 3.7-5.1 [facility] Comment on above: Order Comment: Leanne terry Type: BLOOD SPECIMEN [facility] Address: [address] [phone] Performed By: #### 5 8410-2 #### [facility] CLIA [id number] [address] [place] [address] [place] Sodium [Moles/Vol] 140 mmol/L Normal 136-144 [facility] Comment on above: Order Comment: Speci men Type: BLOOD SPECIMEN [facility] Address: [address] [place] [address] Performed By: #### 5 8410-2 #### [facility] CLIA [id number] [address] [place] [address] [place] Urea nitrogen [Mass/Vol] 11 mg/dL Normal 7-21 [facility] Comment on above: Order Comment: Speci men Type: BLOOD SPECIMEN [facility] Address: [address] [place] [address] Performed By: #### 5 8410-2 #### [facility] CLIA [id number] [address] [place] [address] [place] CBC W Auto Differential pane l (Bld)on 03-31-2022 Basophils (Bld) [#/Vol] 0.03 10*3/uL Normal <0.11 [facility] Comment on above: Order Comment: Speci men Type: BLOOD SPECIMEN [facility] Address: [address] [place] [address] Performed By: #### 5 7021-8 #### [facility] CLIA [id number] [address] [place] [address] STATES [facility] Basophils/100 WBC (Bld) 0.4 % Normal [facility] Comment on above: Order Comment: Speci men Type: BLOOD SPECIMEN [facility] Address: [address] [place], [place] [address] Performed By: #### 5 7021-8 #### [facility] CLIA [id number] [address] [place] [address] [place] Differential cell count method Nom (Bld) Auto Normal [facility] Comment on above: Order Comment: Speci men Type: BLOOD SPECIMEN [facility] Address: [address] [place] [address] Performed By: #### 5 7021-8 #### [facility] CLIA [id number] [address] [place] [address] [place] Eosinophils (Bld) [#/Vol] 0.38 10*3/uL Normal <0.46 [facility] Comment on above: Order Comment: Speci men Type: BLOOD SPECIMEN [facility] Address: [address] [place] [address] Performed By: #### 5 7021-8 #### [facility] CLIA [id number] [address] [place] [address] [place] Eosinophils/100 WBC (Bld) 4.4 % Normal [facility] Comment on above: Order Comment: Speci men Type: BLOOD SPECIMEN [facility] Address: [address] [place] [address] Performed By: #### 5 7021-8 #### [facility] CLIA [id number] [address] [place] [address] [place] Erythrocyte distribution width (RBC) [Ratio] 12.6 % Normal 11.5-15.0 [facility] Comment on above: Order Comment: Speci men Type: BLOOD SPECIMEN [facility] Address: [address] [place] [address] Performed By: #### 5 7021-8 #### [facility] CLIA [id number] [address] [place] [address] [place] Hematocrit (Bld) [Volume fraction] 30.0 % Low 36.0-46.0 [facility] Comment on above: Order Comment: Speci men Type: BLOOD SPECIMEN [facility] Address: [address] [place] [address] Performed By: #### 5 7021-8 #### [facility] CLIA [id number] [address] [place] [address] [place] Hemoglobin (Bld) [Mass/Vol] 9.9 g/dL Low 11.5-15.5 [facility] Comment on above: Order Comment: Speci men Type: BLOOD SPECIMEN [facility] Address: [address] [place] [address] Performed By: #### 5 7021-8 #### [facility] CLIA [id number] [address] [place] [address] IMMATURE GRAN % 0.4 % Normal [facility] Comment on above: Order Comment: Speci men Type: BLOOD SPECIMEN [facility] Address: [address] [place] [address] Performed By: #### 5 7021-8 #### [facility] CLIA [id number] [address] [place] [address] [place] IMMATURE GRAN ABS 0.03 k/uL Normal <0.10 [facility] Comment on above: Order Comment: Speci men Type: BLOOD SPECIMEN [facility] Address: [address] [place] [address] Performed By: #### 5 7021-8 #### [facility] CLIA [id number] [address] [place] [address] [place] Lymphocytes (Bld) [#/Vol] 1.24 10*3/uL Normal 1.00-4.00 [facility] Comment on above: Order Comment: Speci men Type: BLOOD SPECIMEN [facility] Address: [address] [place] [address] Performed By: #### 5 7021-8 #### [facility] CLIA [id number] [address] [place] [address] [place] Lymphocytes/100 WBC (Bld) 14.5 % Normal [facility] Comment on above: Order Comment: Speci men Type: BLOOD SPECIMEN [facility] Address: [address] [place] [address] Performed By: #### 5 7021-8 #### [facility] CLIA [id number] [address] [place] [address] [place] MCH (RBC) [Entitic mass] 29.6 pg Normal 26.0-34.0 [facility] Comment on above: Order Comment: Speci men Type: BLOOD SPECIMEN [facility] Address: [address] [place] [address] Performed By: #### 5 7021-8 #### [facility] CLIA [id number] [address] [place] [address] [place] MCHC (RBC) [Mass/Vol] 33.0 g/dL Normal 30.5-36.0 [facility] Comment on above: Order Comment: Speci men Type: BLOOD SPECIMEN [facility] Address: [address] [place] [address] Performed By: #### 5 7021-8 #### [facility] CLIA [id number] [address] [place] [address] [place] MCV (RBC) [Entitic vol] 89.8 fL Normal 80.0-100.0 [facility] Comment on above: Order Comment: Speci men Type: BLOOD SPECIMEN [facility] Address: [address] [place] [address] Performed By: #### 5 7021-8 #### [facility] CLIA [id number] [address] [place] [address] [place] Monocytes (Bld) [#/Vol] 0.48 10*3/uL Normal <0.87 [facility] Comment on above: Order Comment: Speci men Type: BLOOD SPECIMEN [facility] Address: [address] [place] [address] Performed By: #### 5 7021-8 #### [facility] CLIA [id number] [address] [place] [address] [place] Monocytes/100 WBC (Bld) 5.6 % Normal [facility] Comment on above: Order Comment: Speci men Type: BLOOD SPECIMEN [facility] Address: [address] [place] [address] Performed By: #### 5 7021-8 #### [facility] CLIA [id number] [address] [place] [address] [place] Neutrophils (Bld) [#/Vol] 6.41 10*3/uL Normal 1.45-7.50 [facility] Comment on above: Order Comment: Speci men Type: BLOOD SPECIMEN [facility] Address: [address] [place] [address] Performed By: #### 5 7021-8 #### [facility] CLIA [id number] [address] [place] [address] [place] Neutrophils/100 WBC (Bld) 74.7 % Normal [facility] Comment on above: Order Comment: Speci men Type: BLOOD SPECIMEN [facility] Address: [address] [place] [address] Performed By: #### 5 7021-8 #### [facility] CLIA [id number] [address] [place] [address] [place] Nucleated RBC (Bld) [#/Vol] 10*3/uL Normal <0.01 [facility] Comment on above: Order Comment: Speci men Type: BLOOD SPECIMEN [facility] Address: [address] [place] [address] Performed By: #### 5 7021-8 #### [facility] CLIA [id number] [address] [place] [address] [place] Nucleated RBC/100 WBC (Bld) [Ratio] 0.0 /100 WBC Normal [facility] Comment on above: Order Comment: Speci men Type: BLOOD SPECIMEN [facility] Address: [address] [place] [address] Performed By: #### 5 7021-8 #### [facility] CLIA [id number] [address] [place] [address] [place] Platelet mean volume (Bld) [Entitic vol] 9.0 fL Normal 9.0-12.7 [facility] Comment on above: Order Comment: Speci men Type: BLOOD SPECIMEN [facility] Address: [address] [place] [address] Performed By: #### 5 7021-8 #### [facility] CLIA [id number] [address] [place] [address] [place] Platelets (Bld) [#/Vol] 246 10*3/uL Normal 150-400 [facility] Comment on above: Order Comment: Speci men Type: BLOOD SPECIMEN [facility] Address: [address] [place] [address] Performed By: #### 5 7021-8 #### [facility] CLIA [id number] [address] [place] [address] [place] RBC (Bld) [#/Vol] 3.34 10*6/uL Low 3.90-5.20 [facility] Comment on above: Order Comment: Speci men Type: BLOOD SPECIMEN [facility] Address: [address] [place] [address] Performed By: #### 5 7021-8 #### [facility] CLIA [id number] [address] [place] [address] [place] WBC (Bld) [#/Vol] 8.57 10*3/uL Normal 3.70-11.00 [facility] Comment on above: Order Comment: Speci men Type: BLOOD SPECIMEN [facility] Address: [address] [place] [address] Performed By: #### 5 7021-8 #### [facility] CLIA [id number] [address] [place] [address] OF [facility] CONSULT PROGon 03-31-2022 CONSULT PROG HNO ID: [id number] Author: Joslyn Jain APRN.CHEERLEADING COACH Service: Pain Management Author Type: Nurse Practitioner [...] AND U (more content not included)... Normal [facility] Magnesium SerPl-mCncon 03-31 Magnesium [Mass/Vol] 1.6 mg/dL Low 1.7-2.3 [facility] Comment on above: Order Comment: Speci men Type: BLOOD SPECIMEN [facility] Address: [address] [place] [address] Performed By: #### 5 8410-2 #### [facility] CLIA [id number] [address] [place] [address] NURSING PROGon 03-31-2022 NURSING PROG HNO ID: [id number] Author: Daisy Amaya RN Service: Nursing Author Type: Registered Nurse Type: Nursing Progress Note Filed: 03/31/2022 4:56 PM Note Text: Nursing Progress Note Patient Name: Mary Leal Patient Location: [place] [address]/[address] __ Daily Note: 0931- Pt A+Ox3. Up with standby assist. Ambulated pod multiple times. Laps intact. Old ostomy site WNL. Pt having liquid brown BMs. Voiding adq. No nausea, cp, or sob. Taps infusing per JAN. Pain controlled with PRN oxy. No further needs at this time. This note was completed by: Daisy Amaya [facility] NURSING PROG HNO ID: [id number] Author: Mariluz Carnes RN Service: Nursing Author Type: Registered Nurse Type: Nursing Progress Note Filed: 03/30/2022 11:47 PM Note Text: Nursing Progress Note Patient Name: Mary Leal Patient Location: [address]/[id number] __ Daily Note: Pt's BP 90/52. Patient asymptomatic. Surgery made aware. Order in for Bolus LR 500CC's. This note was completed by: Mariluz Carnes [facility] Phosphate SerPl-mCncon 03-31 Phosphate [Mass/Vol] 2.7 mg/dL Normal 2.7-4.8 [facility] Comment on above: Order Comment: Leanne terry Type: BLOOD SPECIMEN Ordering Facility: [facility] Address: [address] [place] [address] Performed By: #### 5 8410-2 #### [facility] CLIA [id number] [address] [place] [address] [place] Basic metabolic 2000 panelon 03-30-2022 Anion gap [Moles/Vol] 10 mmol/L Normal 9-18 [facility] Comment on above: Order Comment: Everettei men Type: BLOOD SPECIMEN Ordering Facility: [facility] Address: [address] [place] [address] Performed By: #### 1 9123-9, 2777-1, 75533-7 #### [facility] CLIA [id number] [address] [place] [address] [place] Calcium [Mass/Vol] 8.5 mg/dL Normal 8.5-10.2 [facility] Comment on above: Order Comment: Speci men Type: BLOOD SPECIMEN Ordering Facility: [facility] Address: [address] Performed By: #### 1 9123-9, 2777-1, 68939-5 #### [facility] CLIA [id number] [address] [place] [address] [place] Chloride [Moles/Vol] 103 mmol/L Normal 97-105 [facility] Comment on above: Order Comment: Speci men Type: BLOOD SPECIMEN Ordering Facility: [facility] Address: [address] [place] [address] Performed By: #### 1 9123-9, 2777-1, 77491-8 #### [facility] CLIA [id number] [address] [place] [address] [place] CO2 [Moles/Vol] 24 mmol/L Normal 22-30 [facility] Comment on above: Order Comment: Speci men Type: BLOOD SPECIMEN Ordering Facility: [facility] Address: [address] [place] [address] Performed By: #### 1 9123-9, 2777, 51504-1 #### [facility] CLIA [id number] [address] [place] [address] [place] Creatinine [Mass/Vol] 0.69 mg/dL Normal 0.58-0.96 [facility] Comment on above: Order Comment: Speci men Type: BLOOD SPECIMEN Ordering Facility: [facility] Address: [address] [place] [address] Performed By: #### 1 9123-9, 2777-, 97045-6 #### [facility] CLIA [id number] [address] [place] [address] [place] ESTIMATED GLOMERULAR FILTRATION RATE 107 mL/min/1.73m??? Normal >=60 [facility] Comment on above: Order Comment: Speci men Type: BLOOD SPECIMEN Ordering Facility: [facility] Address: [address] [place] [address] Result Comment: Mary mated Glomerular Filtration Rate [...] GFR. Performed By: #### 1 9123-9, 2777-1, 47824-4 #### [facility] CLIA [id number] [address] [place] [address] [place] Glucose [Mass/Vol] 117 mg/dL High 74-99 [facility] Comment on above: Order Comment: Leanne terry Type: BLOOD SPECIMEN Ordering Facility: [facility] Address: [address] [place] [address] Result Comment: The [place] [employer] [...] 2016.39(Suppl 1). Performed By: #### 1 9123-9, 2776-, 68433-8 #### [facility] CLIA [id number] [place] [address] [place] Potassium [Moles/Vol] 3.9 mmol/L Normal 3.7-5.1 [facility] Comment on above: Order Comment: Leanne terry Type: BLOOD SPECIMEN Ordering Facility: [facility] Address: [address] [place] [address] Performed By: #### 1 9123-9, 2777-, 22879-0 #### [facility] CLIA [id number] [address] [place] [id number] [place] Sodium [Moles/Vol] 137 mmol/L Normal 136-144 [facility] Comment on above: Order Comment: Speci men Type: BLOOD SPECIMEN Ordering Facility: [facility] Address: [address] [place] [address] Performed By: #### 1 9123-9, 2777, 51424-3 #### [facility] CLIA [id number] [address] [place] [address] [place] Urea nitrogen [Mass/Vol] 13 mg/dL Normal 7-21 [facility] Comment on above: Order Comment: Speci men Type: BLOOD SPECIMEN Ordering Facility: [facility] Address: [address] [place] [address] Performed By: #### 1 9123-9, 27705-06, #### [facility] CLIA [id number] [address] [place] [address] [place] CBC panel Auto (Bld)on 03-30 Erythrocyte distribution width (RBC) [Ratio] 12.8 % Normal 11.5-15.0 [facility] Comment on above: Order Comment: Speci men Type: BLOOD SPECIMEN Ordering Facility: [facility] Address: [address] [place] [address] Performed By: #### 5 8410-2 #### [facility] CLIA [id number] [address] [place] [address] [place] Hematocrit (Bld) [Volume fraction] 35.0 % Low 36.0-46.0 [facility] Comment on above: Order Comment: Speci men Type: BLOOD SPECIMEN Ordering Facility: [facility] Address: [address] [place] [address] Performed By: #### 5 8410-2 #### [facility] CLIA [id number] [address] [place] [address] [place] Hemoglobin (Bld) [Mass/Vol] 11.8 g/dL Normal 11.5-15.5 [facility] Comment on above: Order Comment: Speci men Type: BLOOD SPECIMEN Ordering Facility: [facility] Address: [address] [place] [address] Performed By: #### 5 8410-2 #### [facility] CLIA [id number] [address] [place] [address] [place] MCH (RBC) [Entitic mass] 30.6 pg Normal 26.0-34.0 [facility] Comment on above: Order Comment: Speci men Type: BLOOD SPECIMEN Ordering Facility: [facility] Address: [address] [place] [address] Performed By: #### 5 8410-2 #### [facility] CLIA [id number] [address] [place] [address] [place] MCHC (RBC) [Mass/Vol] 33.7 g/dL Normal 30.5-36.0 [facility] Comment on above: Order Comment: Speci men Type: BLOOD SPECIMEN Ordering Facility: [facility] Address: [address] [place] [address] Performed By: #### 5 8410-2 #### [facility] CLIA [id number] [address] [place] [address] MCV (RBC) [Entitic vol] 90.7 fL Normal 80.0-100.0 [facility] Comment on above: Order Comment: Speci men Type: BLOOD SPECIMEN Ordering Facility: [facility] Address: [address] [place] [address] Performed By: #### 5 8410-2 #### [facility] CLIA [id number] [address] [place] [address] [place] Nucleated RBC (Bld) [#/Vol] 10*3/uL Normal <0.01 [facility] Comment on above: Order Comment: Speci men Type: BLOOD SPECIMEN Ordering Facility: [facility] Address: [address] [place] [address] Performed By: #### 5 8410-2 #### [facility] CLIA [id number] [address] [place] [address] [place] Platelet mean volume (Bld) [Entitic vol] 8.9 fL Low 9.0-12.7 [facility] Comment on above: Order Comment: Speci men Type: BLOOD SPECIMEN Ordering Facility: [facility] Address: [address] [place] [address] Performed By: #### 5 8410-2 #### [facility] CLIA [id number] [address] [place] [address] [place] Platelets (Bld) [#/Vol] 293 10*3/uL Normal 150-400 [facility] Comment on above: Order Comment: Speci men Type: BLOOD SPECIMEN Ordering Facility: [facility] Address: [address] [place] [address] Performed By: #### 5 8410-2 #### [facility] CLIA [id number] [address] [place] [address] [place] RBC (Bld) [#/Vol] 3.86 10*6/uL Low 3.90-5.20 [facility] Comment on above: Order Comment: Speci men Type: BLOOD SPECIMEN Ordering Facility: [facility] Address: [address] [place] [address] Performed By: #### 5 8410-2 #### [facility] CLIA [id number] [address] [place] [address] [place] WBC (Bld) [#/Vol] 11.25 10*3/uL High 3.70-11.00 [facility] Comment on above: Order Comment: Speci men Type: BLOOD SPECIMEN Ordering Facility: [facility] Address: [address] [place] [address] Performed By: #### 5 8410-2 #### [facility] CLIA [id number] [address] [place] [address] OF [facility] CONSULT PROGon 03-30-2022 CONSULT PROG HNO ID: [id number] Author: Joslyn Jain APRN.CHEERLEADING COACH Service: Pain Management Author Type: Nurse Practitioner [...] eGFR >= (more content not included)... Normal [facility] Magnesium [Mass/Vol] 1.6 mg/dL Low 1.7-2.3 [facility] Comment on above: Order Comment: Speci men Type: BLOOD SPECIMEN Ordering Facility: [facility] Address: [address] [place] [address] Performed By: #### 1 9123-9, 2777-1, 69052-7 #### [facility] CLIA [id number] [address] [place] [address] [place] Phosphate SerPl-mCncon 03-30 Phosphate [Mass/Vol] 2.9 mg/dL Normal 2.7-4.8 [facility] Comment on above: Order Comment: Speci men Type: BLOOD SPECIMEN Ordering Facility: [facility] Address: [address] [place] [address] Performed By: #### 1 9123-9, 2777-1, 52201-7 #### [facility] CLIA [id number] [place] [address] [place] ANES POSTPROC EVALon 022 ANES POSTPROC EVAL HNO ID: [id number] Author: Nathanael Craig DO Service: Anesthesiology Author [...] March 29, 2022 TIME: 8:29 AM CSN: [id number] Normal [facility] Basic metabolic 2000 panelon 03-29-2022 Anion gap [Moles/Vol] 9 mmol/L Normal 9-18 [facility] Comment on above: Order Comment: Speci men Type: BLOOD SPECIMEN Ordering Facility: [facility] Address: [address] [place] [address] Performed By: #### 5 8410-2 #### [facility] CLIA [id number] [address] [place] [address] [place] Calcium [Mass/Vol] 7.9 mg/dL Low 8.5-10.2 [facility] Comment on above: Order Comment: Speci men Type: BLOOD SPECIMEN Ordering Facility: [facility] Address: [address] [place] [address] Performed By: #### 5 8410-2 #### [facility] CLIA [id number] [address] [place] [address] [place] Chloride [Moles/Vol] 105 mmol/L Normal 97-105 [facility] Comment on above: Order Comment: Speci men Type: BLOOD SPECIMEN Ordering Facility: [facility] Address: [address] [place] [address] Performed By: #### 5 8410-2 #### [facility] CLIA [id number] [address] [place] [address] [place] CO2 [Moles/Vol] 24 mmol/L Normal 22-30 [facility] Comment on above: Order Comment: Speci men Type: BLOOD SPECIMEN Ordering Facility: [facility] Address: [address] [place] [address] Performed By: #### 5 8410-2 #### [facility] CLIA [id number] [address] [place] [address] [place] Creatinine [Mass/Vol] 0.70 mg/dL Normal 0.58-0.96 [facility] Comment on above: Order Comment: Speci men Type: BLOOD SPECIMEN Ordering Facility: [facility] Address: [address] [place] [address] Performed By: #### 5 8410-2 #### [facility] CLIA [id number] [address] [place] [address] [place] ESTIMATED GLOMERULAR FILTRATION RATE 106 mL/min/1.73m??? Normal >=60 [facility] Comment on above: Order Comment: Speci men Type: BLOOD SPECIMEN Ordering Facility: [facility] Address: [address] [place] [address] Result Comment: Mary mated Glomerular Filtration Rate [...] GFR. Performed By: #### 5 8410-2 #### [facility] CLIA [id number] [address] [place] [address] [place] Glucose [Mass/Vol] 92 mg/dL Normal 74-99 [facility] Comment on above: Order Comment: Speci men Type: BLOOD SPECIMEN Ordering Facility: [facility] Address: [address] [place], [place] [id number] Result Comment: The [place] [employer] [...] 1). Performed By: #### 5 8410-2 #### [facility] CLIA [id number] [place] [address] [place] Potassium [Moles/Vol] 4.1 mmol/L Normal 3.7-5.1 [facility] Comment on above: Order Comment: Speci men Type: BLOOD SPECIMEN Ordering Facility: [facility] Address: [address] [place], [place] [address] Performed By: #### 5 8410-2 #### [facility] CLIA [id number] [address] [place] [address] [place] Sodium [Moles/Vol] 138 mmol/L Normal 136-144 [facility] Comment on above: Order Comment: Speci men Type: BLOOD SPECIMEN Ordering Facility: [facility] Address: [address] [place] [address] Performed By: #### 5 8410-2 #### [facility] CLIA [id number] [address] [place] [address] [place] [facility] Urea nitrogen [Mass/Vol] 12 mg/dL Normal 7-21 [facility] Comment on above: Order Comment: Speci men Type: BLOOD SPECIMEN Ordering Facility: [facility] Address: [address] [place] [address] Performed By: #### 5 8410-2 #### [facility] CLIA [id number] [address] [place] [address] [place] CBC W Auto Differential pane l (Bld)on 03-29-2022 Basophils (Bld) [#/Vol] 0.04 10*3/uL Normal <0.11 [facility] Comment on above: Order Comment: Speci men Type: BLOOD SPECIMEN Ordering Facility: [facility] Address: [address] [place] [address] Performed By: #### 5 7021-8 #### [facility] CLIA [id number] [address] [place] [address] [place] Basophils/100 WBC (Bld) 0.6 % Normal [facility] Comment on above: Order Comment: Speci men Type: BLOOD SPECIMEN Ordering Facility: [facility] Address: [address] [place] [address] Performed By: #### 5 7021-8 #### [facility] CLIA [id number] [address] [place] [address] [place] Differential cell count method Nom (Bld) Auto Normal [facility] Comment on above: Order Comment: Speci men Type: BLOOD SPECIMEN Ordering Facility: [facility] Address: [address] [place] [address] Performed By: #### 5 7021-8 #### [facility] CLIA [id number] [address] [place] [address] [place] Eosinophils (Bld) [#/Vol] 0.16 10*3/uL Normal <0.46 [facility] Comment on above: Order Comment: Speci men Type: BLOOD SPECIMEN Ordering Facility: [facility] Address: [address] [place] [address] Performed By: #### 5 7021-8 #### [facility] CLIA [id number] [address] [place] [address] [place] Eosinophils/100 WBC (Bld) 2.3 % Normal [facility] Comment on above: Order Comment: Speci men Type: BLOOD SPECIMEN Ordering Facility: [facility] Address: [address] [place] [address] Performed By: #### 5 7021-8 #### [facility] CLIA [id number] [address] [place] [address] Erythrocyte distribution width (RBC) [Ratio] 12.8 % Normal 11.5-15.0 [facility] Comment on above: Order Comment: Speci men Type: BLOOD SPECIMEN Ordering Facility: [facility] Address: [address] [place] [address] Performed By: #### 5 7021-8 #### [facility] CLIA [id number] [address] [place] [address] Hematocrit (Bld) [Volume fraction] 32.3 % Low 36.0-46.0 [facility] Comment on above: Order Comment: Speci men Type: BLOOD SPECIMEN Ordering Facility: [facility] Address: [address] [place] [address] Performed By: #### 5 7021-8 #### [facility] CLIA [id number] [address] [place] [address] [place] Hemoglobin (Bld) [Mass/Vol] 10.7 g/dL Low 11.5-15.5 [facility] Comment on above: Order Comment: Speci men Type: BLOOD SPECIMEN Ordering Facility: [facility] Address: [address] [place] [address] Performed By: #### 5 7021-8 #### [facility] CLIA [id number] [address] [place] [address] [place] IMMATURE GRAN % 0.3 % Normal [facility] Comment on above: Order Comment: Speci men Type: BLOOD SPECIMEN Ordering Facility[facility] Address: [address] [place] [address] Performed By: #### 5 7021-8 #### [facility] CLIA [id number] [address] [place] [address] IMMATURE GRAN ABS <0.03 Normal <0.10 [facility] Comment on above: Order Comment: Speci men Type: BLOOD SPECIMEN Order[facility] Facility[facility] Address: [address] [place] [address] Performed By: #### 5 7021-8 #### [facility] CLIA [id number] [address] [place] [address] [place] Lymphocytes (Bld) [#/Vol] 1.39 10*3/uL Normal 1.00-4.00 [facility] Comment on above: Order Comment: Speci men Type: BLOOD SPECIMEN Order[facility] Facility[facility] Address: [address] [place] [address] Performed By: #### 5 7021-8 #### [facility] CLIA [id number] [address] [place] [address] [place] Lymphocytes/100 WBC (Bld) 19.7 % Normal [facility] Comment on above: Order Comment: Speci men Type: BLOOD SPECIMEN Order[facility] Facility[facility] Address: [address] [place] [address] Performed By: #### 5 7021-8 #### [facility] CLIA [id number] [address] [place] [address] [place] MCH (RBC) [Entitic mass] 29.8 pg Normal 26.0-34.0 [facility] Comment on above: Order Comment: Speci men Type: BLOOD SPECIMEN Order[facility] Facility[facility] Address: [address] [place] [address] Performed By: #### 5 7021-8 #### [facility] CLIA [id number] [address] [place] [address] [place] MCHC (RBC) [Mass/Vol] 33.1 g/dL Normal 30.5-36.0 [facility] Comment on above: Order Comment: Speci men Type: BLOOD SPECIMEN Order[facility] Facility[facility] Address: [address] [place] [address] Performed By: #### 5 7021-8 #### [facility] CLIA [id number] [address] [place] [address] [place] MCV (RBC) [Entitic vol] 90.0 fL Normal 80.0-100.0 [facility] Comment on above: Order Comment: Speci men Type: BLOOD SPECIMEN Ordering Facility: [facility] Address: [address] [place] [address] Performed By: #### 5 7021-8 #### [facility] CLIA [id number] [address] [place] [address] [place] Monocytes (Bld) [#/Vol] 0.55 10*3/uL Normal <0.87 [facility] Comment on above: Order Comment: Speci men Type: BLOOD SPECIMEN Ordering Facility: [facility] Address: [address] [place] [address] Performed By: #### 5 7021-8 #### [facility] CLIA [id number] [address] [place] [address] [place] Monocytes/100 WBC (Bld) 7.8 % Normal [facility] Comment on above: Order Comment: Speci men Type: BLOOD SPECIMEN Ordering Facility: [facility] Address: [address] [place] [address] Performed By: #### 5 7021-8 #### [facility] CLIA [id number] [address] [place] [address] [place] Neutrophils (Bld) [#/Vol] 4.88 10*3/uL Normal 1.45-7.50 [facility] Comment on above: Order Comment: Speci men Type: BLOOD SPECIMEN Ordering Facility[facility] Address: [address] [place] [address] Performed By: #### 5 7021-8 #### [facility] CLIA [id number] [address] [place] [address] [place] Neutrophils/100 WBC (Bld) 69.3 % Normal [facility] Comment on above: Order Comment: Speci men Type: BLOOD SPECIMEN Ordering Facility: [facility] Address: [address] [place] [address] Performed By: #### 5 7021-8 #### [facility] CLIA [id number] [address] [place] [address] [place] Nucleated RBC (Bld) [#/Vol] 10*3/uL Normal <0.01 [facility] Comment on above: Order Comment: Speci men Type: BLOOD SPECIMEN Ordering Facility: [facility] Address: [address] [place] [address] Performed By: #### 5 7021-8 #### [facility] CLIA [id number] [address] [place] [address] [place] Nucleated RBC/100 WBC (Bld) [Ratio] 0.0 /100 WBC Normal [facility] Comment on above: Order Comment: Speci men Type: BLOOD SPECIMEN Ordering Facility: [facility] Address: [address] [place] [address] Performed By: #### 5 7021-8 #### [facility] CLIA [id number] [address] [place] [address] [place] Platelet mean volume (Bld) [Entitic vol] 9.0 fL Normal 9.0-12.7 [facility] Comment on above: Order Comment: Speci men Type: BLOOD SPECIMEN Ordering Facility: [facility] Address: [address] [place] [address] Performed By: #### 5 7021-8 #### [facility] CLIA [id number] [address] [place] [address] [place] Platelets (Bld) [#/Vol] 241 10*3/uL Normal 150-400 [facility] Comment on above: Order Comment: Speci men Type: BLOOD SPECIMEN Ordering Facility: [facility] Address: [address] [place] [address] Performed By: #### 5 7021-8 #### [facility] CLIA [id number] [address] [place] [address] [place] RBC (Bld) [#/Vol] 3.59 10*6/uL Low 3.90-5.20 [facility] Comment on above: Order Comment: Speci men Type: BLOOD SPECIMEN Ordering Facility: [facility] Address: [address] [place] [address] Performed By: #### 5 7021-8 #### [facility] CLIA [id number] [place] [address] [facility] WBC (Bld) [#/Vol] 7.04 10*3/uL Normal 3.70-11.00 [facility] Comment on above: Order Comment: Speci men Type: BLOOD SPECIMEN Ordering Facility: [facility] Address: [address] [place] [address] Performed By: #### 5 7021-8 #### [facility] CLIA [id number] [address] [place] [address] [place] CONSULT PROGon 03-29-2022 CONSULT PROG HNO ID: [id number] Author: Josyln Jain APRN.CHEERLEADING COACH Service: Pain Management Author Type: Nurse Practitioner Type: Consult Progress Note Filed: 03/29/2022 12:11 PM Note Text: PERIPHERAL NERVE CATHETER PROGRESS NOTE PATIENT NAME: Mary Leal SERVICE DATE: 03/29/2022 SERVICE TIME: 11:04 AM ASSESSMENT Mray Leal is a 51 year old [...] is on liq diet, currently on Dilaudid URBAN SOCIOLOGIST at 0/0.2/10/6 last 2 hours 06/27 bolus [...] No Relieved: Yes - NOW with increase URBAN SOCIOLOGIST and Repositioning and URBAN SOCIOLOGIST Is patient satisfied with pain control: Yes [...] mL PERIPHERAL NERVE CATHETER CONTINUOUS - HYDROmorphone URBAN SOCIOLOGIST 0.5 mg/mL in NaCl 0.9% 100 mL [...] % 69.3 (more content not included)... Normal [facility] Magnesium SerPl-mCncon 03-29 Magnesium [Mass/Vol] 1.4 mg/dL Low 1.7-2.3 [facility] [facility] Comment on above: Order Comment: Speci men Type: BLOOD SPECIMEN Ordering Facility: [facility] Address: [address] [place] [address] Performed By: #### 5 8410-2 #### [facility] CLIA [id number] [place] [address] NURSING PROGon 03-29-2022 NURSING PROG HNO ID: [id number] Author: Dipti Crowley RN Service: Nursing Author Type: Registered Nurse Type: Nursing Progress Note Filed: 03/29/2022 2:00 PM Note Text: Nursing Progress Note Patient Name: Mary Leal Patient Location: [place] [address] [address] __ Daily Note: Patient VSS. RA POx. Pain level better controlled now that URBAN SOCIOLOGIST initiated. B/L Ropivacaine Tap Blocks with dressings [...] This note was completed by: Dipti Crowley [facility] NURSING PROG HNO ID: [id number] Author: Kev Leone RN Service: ? Author Type: Registered Nurse Type: Nursing Progress Note Filed: 03/29/2022 3:53 AM Note Text: Nursing Progress Note Patient Name: Mary Leal Patient Location: [place] [address]/[address] __ Daily Note: 0350: Pt states she is in 10/10 pain, pt has no PO pain meds ordered, page sent to surgery resident This note was completed by: Kev Leone [facility] PT EDon 03-29-2022 PT ED HNO ID: [id number] Author: Merced Morales DTR Service: Nutrition Therapy Author Type: Health Professional Type: Patient Education Filed: 03/29/2022 11:05 AM [...] March 29, 2022 TIME: 11:04 AM PAGER: [facility] Phosphate SerPl-mCncon 03-29 Phosphate [Mass/Vol] 2.9 mg/dL Normal 2.7-4.8 [facility] Comment on above: Order Comment: Speci men Type: BLOOD SPECIMEN Ordering Facility: [facility] Address: [address] [place] [address] Performed By: #### 5 8410-2 #### [facility] CLIA [id number] OF [facility] ANES PRE-OPon 03-28-2022 ANES PRE-OP HNO ID: [id number] Author: Anibal Bertrand MD Service: Anesthesiology Author [...] and consent discussed: yes. Patient / Responsible Constitution Party agrees to proceed: yes Patient / [...] (FLONASE) 50 mcg/actuation nasal spray Use 1 Lynd in each nostril on (more content not included)... [facility] BRIEF OP NOTon 03-28-2022 BRIEF OP NOT HNO ID: [id number] Author: Nita Lamas MD Service: Colorectal Author Type: Fellow Type: Brief Op Note Filed: 03/28/2022 3:43 PM Note Text: BRIEF OPERATIVE NOTE - COLORECTAL SURGERY Log ID: [id number] Surgery/Procedure Date: 03/28/2022 Incision/Procedure Start Time: 9:47 AM Incision Close/Procedure End Time: 3:40 PM Surgeon(s) and Standards Analyst(s): Surgeon(s) and Role: * Mary Obrien MD [...] DATE: March 28, 2022 TIME: 3:42 PM [facility] NURSING PROGon 03-28-2022 NURSING PROG HNO ID: [id number] Author: Merced Lay RN Service: ? Author Type: Registered Nurse Type: Nursing Progress Note Filed: 03/28/2022 6:56 PM Note Text: Nursing Progress Note Patient Name: Mary Leal Patient Location: [place] [address] [address] __ Transfer Note: Patient transferred into room/unit PK3B22 in stable condition. Actions taken: No futher actions taken at this time. Will continue to monitor and check with patient. Paged surgical team. Pt has TAP blocks, but orders were discontinued from PACU. New orders for blocks need to be placed in eMAR. Awaiting call back or orders. This note was completed by: Merced Lay [facility] NURSING PROG HNO ID: [id number] Author: Monica Nicole RN Service: Nursing Author Type: Registered Nurse Type: Nursing Progress Note Filed: 03/28/2022 6:35 PM Note Text: Nursing Progress Note Patient Name: Mary Leal Patient Location: OR POOL/FV OR POOL __ Daily Note: 0: Dr. Novak notified of patients increase in heart rate from arrival to post op. Patient HR now maintaining in the 120s. 1830: senior vice president rounding at patient bedside. Dressing and abdomen assessed- drainage to be expected on island dressing. Notified him of patients HR running high and notified that patient normally takes 50mg atenolol but held today for surgery. Patient's pain managed and other VS stable at this time. senior vice president is OK with patient going to regular nursing floor at this time. Family updated. This note was completed by: Monica Nicole [facility] NURSING PROG HNO ID: [id number] Author: Vianney Chacon RN Service: Nursing Author [...] (RECOMMENDATION): None Electronically Signed By: Vianney Chacon [facility] OPERATIVE NOon 03-28-2022 OPERATIVE NO HNO ID: [id number] Author: Mary Obrien MD Service: Colorectal Author Type: Physician Type: Operative Report Filed: 03/28/2022 5:06 PM Note Text: COLON AND RECTAL SURGERY OPERATIVE REPORT PATIENT NAME: Mary Leal ADMISSION DATE: 03/28/2022 LOG ID: [id number] SURGERY/PROCEDURE DATE: 03/28/2022 INCISION/PROCEDURE START TIME: 9:47 AM INCISION CLOSE/PROCEDURE END TIME: 3:40 PM AGE: [age] year old SEX: female SURGEON(S)/PROCEDURALI ST(S) AND STOCK PITCHER(S): Surgeon(s) and Role: * Mary Obrien MD [...] The abdome (more content not included)... Normal [facility] SURGICAL PATHOLOGYon CASE REPORT [facility] Comment on above: Order Comment: Speci men Type: BLOOD SPECIMEN Ordering Facility: [facility] Address: [address] [place] [address] Result Comment: Surg ical Pathology Report Case: [id number] Authorizing Provider: Mary Obrien MD Collected: 03/28/2022 01:43 PM Ordering Location: [facility] Received: 03/28/2022 04:10 PM Operating Room Pathologist: Alexei Rodriguez MD Specimen: COLON RESECTION, terminal ileum with ileostomy Performed By: #### 5 7021-8 #### [facility] CLIA [id number] CLINICAL HISTORY ILEORECTAL ANASTOMOSIS, TAKEDOWN OF ILEOSTOMY Normal [facility] Comment on above: Order Comment: Speci men Type: BLOOD SPECIMEN Ordering Facility: [facility] Address: [address] [place] [address] Performed By: #### 5 7021-8 #### [facility] CLIA [id number] DIAGNOSIS COMMENT The histologic findings are [...] of associated inflammation or infectious organisms. Normal [facility] Comment on above: Order Comment: Speci men Type: BLOOD SPECIMEN Ordering Facility: [facility] Address: [address] [place] [address] Performed By: #### 5 7021-8 #### [facility] CLIA [id number] FINAL DIAGNOSIS Normal [facility] Comment on above: Order Comment: Speci men Type: BLOOD SPECIMEN Ordering Facility: [facility] Address: [address] [place] [address] Result Comment: Luther n and terminal ileum with ileostomy, resection: - Colon with patchy active colitis, submucosal fibrosis, acute serositis, and fibrovascular adhesions (see comment). - Small bowel with focal transmural defect, acute serositis, fibrovascular adhesions, and changes consistent with ileostomy site. - Benign lymph nodes. JEL 03/31/2022 Performed By: #### 5 7021-8 #### [facility] CLIA [id number] [address] [place] [address] FINAL PERFORMING LAB Normal [facility] Comment on above: Order Comment: Speci men Type: BLOOD SPECIMEN Ordering Facility: [facility] Address: [address] [place] [address] Result Comment: Diag nostic interpretation performed at [facility], [address] [place] [address] CLIA# [id number] Affiliate Manager: Rajiv Anderson M.D. Performed By: #### 5 7021-8 #### [facility] CLIA [id number] [address] [place] [address] GROSS DESCRIPTION Normal [facility] Comment on above: Order Comment: Speci men Type: BLOOD SPECIMEN Ordering Facility: [facility] Address: [address] [place] [address] Result Comment: A. C OLON RESECTION. Received [...] diverticula. The serosa is jaimes-pink and smooth. Supervisor Metal Hanging sections are submitted from distal to proximal [...] 2022 9:53 AM Gross examination performed at [facility], [address] [place] [address] CLIA # [id number] Performed By: #### 5 7021-8 #### [facility] CLIA [id number] [address] [place] [address] [place] Q - CBC W/DIFF AND PLTon BASOABS 59 cells/uL Normal 0-200 [facility] Church Administrator Comment on above: Order Comment: [facility] performed at: [facility], [address] [place] [address], [address] [place] [address], [phone], Affiliate Manager: Gopal Hamilton MD [facility] Collection Date/Time: [id number] [facility] Results Received Date/Time: [facility] Reported Date/Time: Performed By: #### 9 68T, 35991B, %8293, 62284L, 6399, 496X #### [facility] Default [address] [place] [address] Basophils/100 WBC (Bld) 1.0 % Normal [facility] Specialist Comment on above: Order Comment: [facility] performed at: [employer] [employer] [facility], [address] [facility], [address] [place] [address], [address] [place] [address], Affiliate Manager: Gopal Hamilton MD [facility] Date/Time: [facility] Results Received Date/Time: [facility] Reported Date/Time: Performed By: #### 9 68T, 64312Z, %8293, 02799X, 6399, 496X #### [facility] Default [address] [place] [address] EOSABS 171 cells/uL Normal 15-500 [facility] Specialist Comment on above: Order Comment: [facility] performed at: [employer] [employer] [facility], [address] [facility], [address] [place] [address], [address] [place] [address], Affiliate Manager: Gopal Hamilton MD [facility] Date/Time: [facility] Results Received Date/Time: [facility] Reported Date/Time: Performed By: #### 9 68T, 44198P, %8293, 11909P, 6399, 496X #### [facility] Default [address] [place] [address] Eosinophils/100 WBC (Bld) 2.9 % Normal [facility] Specialist Comment on above: Order Comment: [facility] performed at: [employer] [employer] [facility], [address] [facility], [address] [place] [address], [address] [place] [address], Affiliate Manager: Gopal Hamilton MD [facility] Date/Time: [facility] Results Received Date/Time: [facility] Reported Date/Time: Performed By: #### 9 68T, 85647J, %8293, 38109Y, 6399, 496X #### [facility] Default [address] [place] [address] Erythrocyte distribution width (RBC) [Ratio] 12.9 % Normal 11.0-15.0 [facility] Church Administrator Comment on above: Order Comment: [facility] performed at: [employer] [employer] [facility], [address] [facility], [address] [place] [address], [address] [place] [address], Affiliate Manager: Gopal Hamilton MD [facility] Date/Time: [facility] Results Received Date/Time: [facility] Reported Date/Time: Performed By: #### 9 68T, 71239F, %8293, 40738F, 6399, 496X #### [facility] Default [address] [place] [address] Hematocrit (Bld) [Volume fraction] 38.1 % Normal 35.0-45.0 [facility] Church Administrator Comment on above: Order Comment: [facility] performed at: [employer] [employer] [facility], [address] [facility], [address] [place] [address], [address] [place] [address], Affiliate Manager: Gopal Hamilton MD [facility] Date/Time: [facility] Results Received Date/Time: [facility] Reported Date/Time: Performed By: #### 9 68T, 91390U, %8293, 82443R, 6399, 496X #### [facility] Default [address] [place] [address] Hemoglobin (Bld) [Mass/Vol] 12.9 g/dL Normal 11.7-15.5 [facility] Church Administrator Comment on above: Order Comment: [facility] performed at: [employer] [employer] [facility], [address] [place] [address], [address] [place] [address], [address] [place] [address], Affiliate Manager: Gopal Hamilton MD [facility] Date/Time: [facility] Results Received Date/Time: [facility] Reported Date/Time: [id number] Performed By: #### 9 68T, 59135A, %8293, 99548D, 6399, 496X #### [facility] Default [address] [place] [address] Lymphocytes (Bld) [#/Vol] 1.375 10*3/uL Normal 850-3900 [facility] Church Administrator Comment on above: Order Comment: [facility] performed at: [employer] [employer] [facility], [address] [place] [address], [address] [place] [address], [address] [place] [address], Affiliate Manager: Gopal Hamilton MD [facility] Date/Time: [facility] Results Received Date/Time: [facility] Reported Date/Time: Performed By: #### 9 68T, 18263O, %8293, 20227N, 6399, 496X #### [facility] Default [address] [place] [address] Lymphocytes/100 WBC (Bld) 23.3 % Normal [facility] Church Administrator Comment on above: Order Comment: [facility] performed at: [employer] [employer] [facility], [address] [place] [address], [address] [place] [address], [address] [place] [address], Affiliate Manager: Gopal Hamilton MD [facility] Date/Time: [facility] Results Received Date/Time: [facility] Reported Date/Time: Performed By: #### 9 68T, 72835J, %8293, 41406U, 6399, 496X #### [facility] Default [address] [place] [address] MCH (RBC) [Entitic mass] 30.0 pg Normal 27.0-33.0 [facility] Church Administrator Comment on above: Order Comment: [facility] performed at: [employer] [employer] [facility], [address] [facility], [address] [place] [address], [address] [place] [address], Affiliate Manager: Gopal Hamilton MD [facility] Date/Time: [facility] Results Received Date/Time: [facility] Reported Date/Time: Performed By: #### 9 68T, 09884U, %8293, 34077G, 6399, 496X #### [facility] Default [address] [place] [address] MCHC (RBC) [Mass/Vol] 33.9 g/dL Normal 32.0-36.0 [facility] Comment on above: Order Comment: [facility] performed at: [employer] [employer] [facility], [address] [facility], [address] [place] [address], [address] [place] [address], Affiliate Manager: Gopal Hamilton MD [facility] Date/Time: [facility] Results Received Date/Time: [facility] Reported Date/Time: Performed By: #### 9 68T, 50981X, %8293, 97891L, 6399, 496X #### [facility] Default [address] [place] [address] MCV (RBC) [Entitic vol] 88.6 fL Normal 80.0-100.0 [facility] Specialist Comment on above: Order Comment: [facility] performed at: [employer] [employer] [facility], [address] [place] [address], [address] [place] [address], [address] [place] [address], Affiliate Manager: Gopal Hamilton MD [facility] Date/Time: [facility] Results Received Date/Time: [facility] Reported Date/Time: Performed By: #### 9 68T, 87592Y, %8293, 85676T, 6399, 496X #### [facility] Default [address] [place] [address] MONOABS 460 cells/uL Normal 200-950 [facility] Church Administrator Comment on above: Order Comment: [facility] performed at: [employer] [employer] [facility], [address] [place] [address], [address] [place] [address], [address] [place] [address], Affiliate Manager: Gopal Hamilton MD [facility] Date/Time: [facility] Results Received Date/Time: [facility] Reported Date/Time: Performed By: #### 9 68T, 40973S, %8293, 04340Y, 6399, 496X #### [facility] Default [address] [place] [address] Monocytes/100 WBC (Bld) 7.8 % Normal [facility] Specialist Comment on above: Order Comment: [facility] performed at: [employer] [employer] [facility], [address] [facility], [address] [place] [address], [address] [place] [address], Affiliate Manager: Gopal Hamilton MD [facility] Date/Time: [facility] Results Received Date/Time: [facility] Reported Date/Time: Performed By: #### 9 68T, 42653X, %8293, 93943D, 6399, 496X #### [facility] Default [address] [place] [address] Neutrophils (Bld) [#/Vol] 3.835 10*3/uL Normal 8590-4516 [facility] Church Administrator Comment on above: Order Comment: [facility] performed at: [employer] [employer] [facility], [address] [place] [address], [address] [place] [address], [address] [place] [address], Affiliate Manager: Gopal Hamilton MD [facility] Date/Time: [facility] Results Received Date/Time: [facility] Reported Date/Time: Performed By: #### 9 68T, 93285F, %8293, 11953O, 6399, 496X #### [facility] Default [address] [place] [address] Neutrophils/100 WBC (Bld) 65 % Normal [facility] Church Administrator Comment on above: Order Comment: [facility] performed at: [employer] [employer] [facility], [address] , [address] [place] [address], [address] [place] [address], Affiliate Manager: Gopal Hamilton MD [facility] Date/Time: [facility] Results Received Date/Time: [facility] Reported Date/Time: Performed By: #### 9 68T, 88695U, %8293, 40398P, 6399, 496X #### [facility] Default [address] [place] [address] Platelet mean volume (Bld) [Entitic vol] 9.3 fL Normal 7.5-12.5 [facility] Comment on above: Order Comment: [facility] performed at: [employer] [employer] [facility], [address] [facility], [address] [place] [address], [address] [place] [address], Affiliate Manager: Gopal Hamilton MD [facility] Date/Time: [facility] Results Received Date/Time: [facility] Reported Date/Time: Performed By: #### 9 68T, 56982Y, %8293, 14021I, 6399, 496X #### [facility] Default [address] [place] [address] Platelets (Bld) [#/Vol] 409 10*3/uL High 140-400 [facility] Comment on above: Order Comment: [facility] performed at: [employer] [employer] [facility], [address] [facility], [address] [place] [address], [address] [place] [address], Affiliate Manager: Gopal Hamilton MD [facility] Date/Time: [facility] Results Received Date/Time: [facility] Reported Date/Time: Performed By: #### 9 68T, 14494B, %8293, 02802S, 6399, 496X #### [facility] Default [address] [place] [address] RBC (Bld) [#/Vol] 4.30 10*6/uL Normal 3.80-5.10 [facility] Comment on above: Order Comment: [facility] performed at: [employer] [employer] [facility], [address] , [address] [place] [address], [address] [place] [address], Affiliate Manager: Gopal Hamilton MD [facility] Date/Time: [facility] Results Received Date/Time: [facility] Reported Date/Time: Performed By: #### 9 68T, 98270N, %8293, 91932X, 6399, 496X #### [facility] Default [address] [place] [address] WBC (Bld) [#/Vol] 5.9 10*3/uL Normal 3.8-10.8 Jay gambino [facility] Administrator Comment on above: Order Comment: [facility] performed at: [employer] [employer] [facility], [address] [place] [address], [address] [place] [address], [address], Affiliate Manager: Gopal Hamilton MD [facility] Date/Time: [facility] Results Received Date/Time: [facility] Reported Date/Time: Performed By: #### 9 68T, 95431D, %8293, 35819H, 6399, 496X #### [facility] Default [address] [place] [address] Q - COMPREHENSIVE METABOLIC PANEL W/EGFRon 03-10-2022 Albumin [Mass/Vol] 4.3 g/dL Normal 3.6-5.1 Jay gabmino [facility] [employer] Administrator Comment on above: Order Comment: [facility] performed at: [employer] [facility], [address] [place] [address], [address] [place] [address], [address], Affiliate Manager: Gopal Hamilton MD [facility] Date/Time: [facility] Results Received Date/Time: [facility] Reported Date/Time: Performed By: #### 9 68T, 56110F, %8293, 65398L, 6399, 496X #### [facility] Default [address] [place] [address] Albumin/Globulin [Mass ratio] 1.7 {ratio} Normal 1.0-2.5 [facility] Church Administrator Comment on above: Order Comment: [facility] performed at: [employer] [facility], [address] [place] [address], [address] [place] [address], [address] [place] [address], Affiliate Manager: Gopal Hamilton MD [facility] Date/Time: [facility] Results Received Date/Time: [facility] Reported Date/Time: Performed By: #### 9 68T, 52802V, %8293, 68064G, 6399, 496X #### [facility] Default [address] [place] [address] ALP [Catalytic activity/Vol] 134 U/L High 31-125 [facility] Church Administrator Comment on above: Order Comment: [facility] performed at: [facility], [employer] [facility], [address] [place] [address], [address] [place] [address], [address] [place] [address], Affiliate Manager: Gopal Hamilton MD [facility] Date/Time: [facility] Results Received Date/Time: [facility] Reported Date/Time: Performed By: #### 9 68T, 08470I, %8293, 52479C, 6399, 496X #### [facility] Default [address] [place] [address] ALT [Catalytic activity/Vol] 41 U/L High 6-29 [facility] Church Administrator Comment on above: Order Comment: [facility] performed at: [employer], [employer] [facility], [address] [place] [address], [address] [place] [address], [address] [place] [address], Affiliate Manager: Gopal Hamilton MD [facility] Date/Time: [facility] Results Received Date/Time: [facility] Reported Date/Time: Performed By: #### 9 68T, 49066X, %8293, 57344E, 6399, 496X #### [facility] Default [address] [place] [address] AST [Catalytic activity/Vol] 33 U/L Normal 10-35 [facility] Church Administrator Comment on above: Order Comment: [facility] performed at: [employer], [employer] [facility], [address] [place] [address], [address] [place] [address], [address] [place] [address], Affiliate Manager: Gopal Hamilton MD [facility] Date/Time: [facility] Results Received Date/Time: [facility] Reported Date/Time: Performed By: #### 9 68T, 96206Z, %8293, 02093N, 6399, 496X #### [facility] Default [address] [place] [address] BUN/CREA 17 NOT APPLICABLE Normal 6-22 [facility] osman [facility] Administrator Comment on above: Order Comment: [facility] performed at: [employer] [employer] [facility], [address] [facility], [address] [place] [address], [address] [place] [address], Affiliate Manager: Gopal Hamilton MD [facility] Date/Time: [facility] Results Received Date/Time: [facility] Reported Date/Time: Performed By: #### 9 68T, 49066S, %8293, 55354S, 6399, 496X #### [facility] Default [address] [place] [address] Calcium [Mass/Vol] 9.6 mg/dL Normal 8.6-10.2 [facility] Church Administrator Comment on above: Order Comment: [facility] performed at: [employer] [employer] [facility], [address] , [address] [place] [address], [address] [place] [address], Affiliate Manager: Gopal Hamilton MD [facility] Date/Time: [facility] Results Received Date/Time: [facility] Reported Date/Time: Performed By: #### 9 68T, 18075X, %8293, 75494X, 6399, 496X #### [facility] Default [address] [place] [address] Chloride [Moles/Vol] 103 mmol/L Normal 98-110 Gen rodriguez [facility] [employer] Administrator Comment on above: Order Comment: [facility] performed at: [employer] [employer] [facility], [address] , [address] [place] [address], [address] [place] [address], Affiliate Manager: Gopal Hamilton MD [facility] Date/Time: [facility] Results Received Date/Time: [facility] Reported Date/Time: Performed By: #### 9 68T, 52489U, %8293, 84524Y, 6399, 496X #### [facility] Default [address] [place] [address] CO2 [Moles/Vol] 27 mmol/L Normal 20-32 [facility] Comment on above: Order Comment: [facility] Testing performed at: [employer] [employer] [facility], [address] [place] [address], [address] [place] [address], [address] [place] [address], Affiliate Manager: Gopal Hamilton MD [facility] Collection Date/Time: [facility] Results Received Date/Time: [facility] Reported Date/Time: Performed By: #### 9 68T, 33280C, %8293, 25943S, 6399, 496X #### [facility] Default [address] [place] [address] Creatinine [Mass/Vol] 0.65 mg/dL Normal 0.50-1.10 [facility] Specialist Comment on above: Order Comment: [facility] Testing performed at: [employer] [employer] [facility], [address] [place] [address], [address] [place] [address], [address] [place] [address], Affiliate Manager: Gopal Hamilton MD [facility] Date/Time: [facility] Results Received Date/Time: [facility] Reported Date/Time: Performed By: #### 9 68T, 38294V, %8293, 31212S, 6399, 496X #### [facility] Default [address] [place] [address] eGFRAA (Quest) 121 mL/min/1.73m2 Normal > OR = 60 [facility] Church Administrator Comment on above: Order Comment: [facility] performed at: [employer] [employer] [facility], [address] [place] [address], [address] [place] [address], [address] [place] [address], Affiliate Manager: Gopal Hamilton MD [facility] Date/Time: [facility] Results Received Date/Time: [facility] Reported Date/Time: Performed By: #### 9 68T, 55236B, %8293, 62510R, 6399, 496X #### [facility] Default [address] [place] [address] eGFRNAA (Quest) 104 mL/min/1.73m2 Normal > OR = 60 No [facility]thern [facility] [employer] Administrator Comment on above: Order Comment: [facility] Testing performed at: [employer], [employer] [facility], [address] [place] [address], [address] [place] [address], [address] [place] [address], Affiliate Manager: Gopal Hamilton MD [facility] Date/Time: [facility] Results Received Date/Time: [facility] Reported Date/Time: Performed By: #### 9 68T, 51766X, %8293, 86824P, 6399, 496X #### [facility] Default [address] [place] [address] Globulin (S) [Mass/Vol] 2.5 g/dL Normal 1.9-3.7 [facility] Specialist Comment on above: Order Comment: [facility] performed at: [employer] [employer] [facility], [address] [place] [address], [address] [place] [address], [address] [place] [address], Affiliate Manager: Gopal Hamilton MD [facility] Date/Time: [facility] Results Received Date/Time: [facility] Reported Date/Time: Performed By: #### 9 68T, 92806W, %8293, 67971A, 6399, 496X #### [facility] Default [address] [place] [address] Glucose [Mass/Vol] 94 mg/dL Normal 65-99 [facility] Specialist Comment on above: Order Comment: [facility] performed at: [employer] [employer] [facility], [address] [place] [address], [address] [place] [address], [address] [place] [address], Affiliate Manager: Gopal Hamilton MD [facility] Date/Time: [facility] Results Received Date/Time: [facility] Reported Date/Time: Result Comment: Fasting reference interval Performed By: #### 9 68T, 91277D, %8293, 19688K, 6399, 496X #### [facility] Default [address] [place] [address] Potassium [Moles/Vol] 4.4 mmol/L Normal 3.5-5.3 Venita larson [employer] Administrator Comment on above: Order Comment: [facility] performed at: [employer] [facility], [address] [place] [address], [address] [place] [address], [address] [place] [address], Affiliate Manager: Gopal Hamilton MD [facility] Date/Time: [facility] Results Received Date/Time: [facility] Reported Date/Time: Performed By: #### 9 68T, 29871X, %8293, 09791C, 6399, 496X #### [facility] Default [address] [place] [address] Protein [Mass/Vol] 6.8 g/dL Normal 6.1-8.1 Jay gambino [employer] Administrator Comment on above: Order Comment: [facility] performed at: [employer] [facility], [address] [place] [address], [address] [place] [address], [address] [place] [address], Affiliate Manager: Gopal Hamilton MD [facility] Date/Time: [facility] Results Received Date/Time: [facility] Reported Date/Time: Performed By: #### 9 68T, 99365R, %8293, 00789A, 6399, 496X #### [facility] Default [address] [place] [address] Sodium [Moles/Vol] 138 mmol/L Normal 135-146 Jay gambino [employer] Administrator Comment on above: Order Comment: [facility] Testing performed at: [employer] [employer] [facility], [address] [facility], [address] [place] [address], [address] [place] [address], Affiliate Manager: Gopal Hamilton MD [facility] Collection Date/Time: [facility] Results Received Date/Time: [facility] Reported Date/Time: Performed By: #### 9 68T, 16449Z, %8293, 17707S, 6399, 496X #### [facility] Default [address] [place] [address] TBIL <0.3 Normal 0.2-1.2 [facility] Church Administrator Comment on above: Order Comment: [facility] Testing performed at: [employer] [facility], [address] [facility], [address] [place] [address], [address] [place] [address], Affiliate Manager: Gopal Hamilton MD [facility] Date/Time: [facility] Results Received Date/Time: [facility] Reported Date/Time: Performed By: #### 9 68T, 21125V, %8293, 48053S, 6399, 496X #### [facility] Default [address] [place] [address] Urea nitrogen [Mass/Vol] 11 mg/dL Normal 7-25 [facility] Church Administrator Comment on above: Order Comment: [facility] performed at: [employer] [facility], [address] [facility], [address] [place] [address], [address] [place] [address], Affiliate Manager: Gopal Hamilton MD [facility] Date/Time: [facility] Results Received Date/Time: [facility] Reported Date/Time: Performed By: #### 9 68T, 19331R, %8293, 24677A, 6399, 496X #### [facility] Default [address] [place] [address] Q - DLDL REFLEXon 03-10-2022 Cholesterol in LDL [Mass/Vol] 87 mg/dL Normal <100 [employer] Administrator Comment on above: Order Comment: [facility] performed at: [employer] [facility], [address] , [address] [place] [address], [address] [place] [address], Affiliate Manager: Gopal Hamilton MD [facility] Date/Time: [facility] Results Received Date/Time: [facility] Reported Date/Time: Result Comment: Desirable range <100 mg/dL for primary prevention; <70 mg/dL for patients with CHD or diabetic patients with > or = 2 CHD risk factors. Performed By: #### 9 68T, 95408R, %8293, 96869B, 6399, 496X #### [facility] Default [address] [place] [address] Q - HEMOGLOBIN A1Con HEMOGLOBIN A1c 5.0 % of total Hgb Normal <5.7 [facility] Comment on above: Order Comment: [facility] performed at: [employer] [facility], [address] , [address] [place] [address], [address] [place] [address], Affiliate Manager: Gopal Hamilton MD [facility] Date/Time: [...] in Diabetes(ADA). Performed By: #### 9 68T, 54404L, %8293, 43146M, 6399, 496X #### [facility] Default [address] [place] [address] Q - Lipid Panelon 03-10-2022 Cholesterol [Mass/Vol] 230 mg/dL High <200 [employer] Administrator Comment on above: Order Comment: [facility] performed at: [employer] [facility], [address] [facility], [address] [place] [address], [address] [place] [address], Affiliate Manager: Gopal Hamilton MD [facility] Collection Date/Time: [facility] Results Received Date/Time: [facility] Reported Date/Time: Performed By: #### 9 68T, 41159V, %8293, 94743Y, 6399, 496X #### [facility] Default [address] [place] [address] Cholesterol in HDL [Mass/Vol] 52 mg/dL Normal > OR = 50 [facility] Church Administrator Comment on above: Order Comment: [facility] performed at: [employer] [employer] [facility], [address] [facility], [address] [place] [address], [address] [place] [address], Affiliate Manager: Gopal Hamilton MD [facility] Date/Time: [facility] Results Received Date/Time: [facility] Reported Date/Time: Performed By: #### 9 68T, 95112X, %8293, 53029J, 6399, 496X #### [facility] Default [address] [place] [address] Cholesterol.total/Cho lesterol in HDL [Mass ratio] 4.4 {ratio} Normal <5.0 [facility] Church Administrator Comment on above: Order Comment: [facility] performed at: [employer] [facility], [address] , [address] [place] [address], [address] [place] [address], Affiliate Manager: Gopal Hamilton MD [facility] Date/Time: [facility] Results Received Date/Time: [facility] Reported Date/Time: Performed By: #### 9 68T, 61059D, %8293, 40952R, 6399, 496X #### [facility] Default [address] [place] [address] LDLD SEE NOTE Normal [facility] Church Administrator Comment on above: Order Comment: [facility] performed at: [employer] [facility], [address] , [address] [place] [address], [address], Affiliate Manager: Gopal Hamilton MD [facility] Date/Time: [...] LDL-C. Estevan SCHILLING et al. ZANA. 2013;310(19): 5621-3891 ([email or web address]) Performed By: #### 9 68T, 73821P, %8293, 02391U, 6399, 496X #### [facility] Default [address] [place] [address] NON HDL CHOLESTEROL 178 mg/dL (calc) High <130 [facility] Church Administrator Comment on above: Order Comment: [facility] performed at: [employer] [facility], [address] , [address] [place], [address], Affiliate Manager: Gopal Hamilton MD [facility] Date/Time: [facility] Results Received Date/Time: [facility] Reported Date/Time: Result Comment: For patients with diabetes plus 1 major ASCVD risk factor, treating to a non-HDL-C goal of <100 mg/dL (LDL-C of <70 mg/dL) is considered a therapeutic option. Performed By: #### 9 68T, 13854E, %8293, 73911A, 6399, 496X #### [facility] Default [address] [place] [address] Triglyceride [Mass/Vol] 410 mg/dL High <150 [facility] Church Administrator Comment on above: Order Comment: [facility] performed at: [employer] [facility], [address] , [address] [place] [address], [address] [place] [address], Affiliate Manager: Gopal Hamilton MD [facility] Collection Date/Time: [facility] Results Received Date/Time: [facility] Reported Date/Time: Result Comment: If a non-fasting specimen was collected, consider repeat triglyceride testing on a fasting specimen if clinically indicated. João et al. J. of Clin. Lipidol. 2015;9:129-169. Performed By: #### 9 68T, 33120B, %8293, 05706Q, 6399, 496X #### [facility] Default [address] [place] [address] Q - TROPONIN Ion 03-10-2022 TROPONIN I 3 ng/L Normal < OR = 47 [facility] Specialist Comment on above: Order Comment: [facility] performed at: [employer] [facility], [address] , [address] [place] [address], [address] [place] [address], Affiliate Manager: Gopal Hamilton MD [facility] Collection Date/Time: [facility] Results Received Date/Time: [facility] Reported Date/Time: Result Comment: In accord with published recommendations, serial testing of troponin I at intervals of 2 to 4 hours for up to 12 to 24 hours is suggested in order to corroborate a single troponin I result. An elevated troponin alone is not sufficient to make the diagnosis of NH. Performed By: #### 9 68T, 08272S, %8293, 11550F, 6399, 496X #### [facility] Default [address] [place] [address] UA DIP, URINE (POC)on 2021 BILIRUBIN UA (POCT) Negative Negative [facility] CLARITY UA (POCT) Clear [facility] COLOR UA (POCT) Yellow [facility] GLUCOSE UA (POCT) Negative Negative mg/dL [facility] HEMOGLOBIN/BLOOD UA (POCT) Negative Negative [facility] KETONE UA (POCT) Negative Negative mg/dL [facility] LEUKOCYTES UA (POCT) Negative Negative [facility] NITRITE UA (POCT) Negative Negative [facility] PH UA (POCT) 5.0 4.5 - 8.0 [facility] Protein Ql (U) Trace Abnormal Negative mg/dL [facility] SPECIFIC GRAVITY UA (POCT) >=1.030 1.005 - 1.030 [facility] UROBILINOGEN UA (POCT) 0.2 E.U./dL Normal E.U./dL [facility] CNTHERAPYon 01-31-2022 CNTHERAPY OT/PT/Speech Visit (PTLHO) MARY LEAL ([id number]) 1970 F Date Time Provider Department 01/31/22 10:30 AM NEWTON WOODWARD PTSAVANNAH Date Time Provider Department [place] 01/31/2022 10:30 AM [id number]: [facility] [503] [...] (FLONASE) 50 mcg/actuation nasal spray Use 1 Lynd in each nostril once daily. - carBAMazepine [...] Take 50 mg by mouth once daily. [facility] CNTHERAPYon 01-24-2022 CNTHERAPY OT/PT/Speech Visit (PTLHO) MARY LEAL ([id number]) 1970 F Date Time Provider Department 01/24/22 10:30 AM NEWTON WOODWARD Date Time Provider Department [place] 01/24/2022 10:30 AM [id number], JILL PTKALEIGH [facility] Reason for Visit: Physical Therapy [503] [...] (FLONASE) 50 mcg/actuation nasal spray Use 1 Lynd in each nostril once daily. - carBAMazepine [...] Take 50 mg by mouth once daily. [facility] CNTHERAPYon 01-18-2022 CNTHERAPY OT/PT/Speech Visit (PTLHO) MARY LEAL ([id number]) 1970 F Date Time Provider Department 01/18/22 12:15 PM [facility] Provider Department [place] 01/18/2022 12:15 PM [id number][facility] Reason for Visit: PT Eval [747] [...] (FLONASE) 50 mcg/actuation nasal spray Use 1 Lynd in each nostril once daily. - carBAMazepine [...] mg by mouth once daily. Letter Text [facility] 12-27-2021 [facility] ID: [id number] Author: Sonido Owen MD Service: Colorectal Author [...] mg Finesse (more content not included)... Normal [facility] CONSULTon 12-27-2021 CONSULT HNO ID: [id number] Author: Dai Hines, RN Service: Wound/Ostomy Author Type: Registered [...] downward Mucosal condition and color: Red and [place] and moist. Boni: No Mucocutaneous Junction: Intact [...] one piece cut to fit drainable pouch (#20571) and Coloplast Brava moldable ring (2mm) #[id number]. Brava barrier strips, product # [id number] applied around the border of the pouch. INCISION Degree of approximation: 100% Approximating devices: Surgical Glue Drainage: None Method of Management: INTERNSHIP COORDINATOR Time Increment: 45 minutes Comments: NA Supplies [...] FROM THE CHART OR MODIFY PRINTED COPY. [facility] NURSING PROGon 12-27-2021 NURSING PROG HNO ID: [id number] Author: Marizol Hankins RN Service: ? Author Type: Registered Nurse Type: Nursing Progress Note Filed: 12/27/2021 4:39 PM Note Text: Nursing Progress Note Patient Name: Mary Leal Patient Location: [place] [address] [address] __ Daily Note: Pt AANDO x 3. [...] This note was completed by: Marizol Hankins [facility] NUTRITIONon 12-27-2021 NUTRITION HNO ID: [id number] Author: Merced Morales DTR Service: Nutrition Therapy Author Type: Health Professional Type: Nutrition Filed: 12/27/2021 12:16 PM Note Text: NUTRITION THERAPY LEAD CONSULTANT NOTE SERVICE DATE: 12/27/2021 SERVICE TIME: 10:00 [...] DATE: December 27, 2021 TIME: 12:15 PM [facility] PT EDon 12-27-2021 PT ED HNO ID: [id number] Author: Merced Morales DTR Service: Nutrition Therapy Author Type: Health Professional Type: Patient Education Filed: 12/27/2021 12:16 PM [...] 27, 2021 TIME: 12:16 PM PAGER: Normal [facility] Basic Metabolic Panlon 12-26 Anion gap [Moles/Vol] 9 mmol/L Normal 9-18 [facility] Comment on above: Performed By: #### B MP #### [place] [phone] Calcium [Mass/Vol] 8.5 mg/dL Normal 8.5-10.5 [facility] Comment on above: Performed By: #### B MP #### [place] [phone] Chloride [Moles/Vol] 102 mmol/L Normal 98-110 [facility] Comment on above: Performed By: #### B MP #### [place] [phone] CO2 [Moles/Vol] 28 mmol/L Normal 23-32 [facility] Comment on above: Performed By: #### B MP #### [place] [phone] Creatinine [Mass/Vol] 0.62 mg/dL Low 0.70-1.40 [facility] Comment on above: Performed By: #### B MP #### [place] [phone] eGFR- Amer. >60 Normal >59 [facility] Comment on above: Performed By: #### B MP #### [place] [phone] eGFR-All Other Races >60 Normal >59 [facility] Comment on above: Result Comment: eGFR [...] By: #### B MP #### [place] [phone] Glucose [Mass/Vol] 71 mg/dL Normal 65-100 [facility] Comment on above: Performed By: #### B MP #### [place] [phone] Potassium [Moles/Vol] 4.0 mmol/L Normal 3.5-5.0 [facility] Comment on above: Performed By: #### B MP #### [place] [phone] Sodium [Moles/Vol] 139 mmol/L Normal 132-148 [facility] Comment on above: Performed By: #### B MP #### [address] Urea nitrogen [Mass/Vol] 10 mg/dL Normal 8-25 [facility] Comment on above: Performed By: #### B MP #### [place] [phone] NURSING PROGon 12-26-2021 NURSING PROG HNO ID: [id number] Author: Dipti Crowley RN Service: Nursing Author Type: Registered Nurse Type: Nursing Progress Note Filed: 12/26/2021 5:25 PM Note Text: Nursing Progress Note Patient Name: Mary Leal [id number] __ Daily Note: Call discontinued as directed in orders. 700cc output from call. 250cc NS instilled and then call catheter removed. Patient assisted to BSC and voided 200cc pink tinged urine. Patient assisted back to bed, not wanting to go to chair. Call light in reach. This note was completed by: Dipti Crowley [facility] NURSING PROG HNO ID: [id number] Author: Dipti Crowley, MAKI Service: Nursing Author Type: Registered Nurse Type: Nursing Progress Note Filed: 12/26/2021 3:51 PM Note Text: Nursing Progress Note Patient Name: Mary Leal Patient Location: -[id number] __ Daily Note: Patient AANDOx3. VSS. 2L NC POx. IVF infusing as ordered. Dilaudid URBAN SOCIOLOGIST, OXY IR on for pain. Patient drowsy yet easily arousable. Lap sites and transverse incision INTERNSHIP COORDINATOR with glue. Ileostomy draining liquid brown. Call draining clear yellow. PAS on. No edema. Fa,saman at bed side. Call light in reach. This note was completed by: Dipti Crowley [facility] Basic Metabolic Panlon 12-25 Anion gap [Moles/Vol] 9 mmol/L Normal -18 [facility] Comment on above: Performed By: #### B MP #### [facility] [address] [place] [address] Calcium [Mass/Vol] 8.5 mg/dL Normal 8.5-10.5 [facility] Comment on above: Performed By: #### B MP #### [place] [phone] Chloride [Moles/Vol] 104 mmol/L Normal 98-110 [facility] Comment on above: Performed By: #### B MP #### [place] [phone] CO2 [Moles/Vol] 28 mmol/L Normal 23-32 [facility] Comment on above: Performed By: #### B MP #### [place] [phone] Creatinine [Mass/Vol] 0.72 mg/dL Normal 0.70-1.40 [facility] Comment on above: Performed By: #### B MP #### [place] [phone] eGFR- Amer. >60 Normal >59 [facility] Comment on above: Performed By: #### B MP #### [place] [phone] eGFR-All Other Races >60 Normal >59 [facility] Comment on above: Result Comment: eGFR [...] [email or web address]. Performed By: #### B MP #### [place] [phone] Glucose [Mass/Vol] 91 mg/dL Normal 65-100 [facility] Comment on above: Performed By: #### B MP #### [place] [address] Potassium [Moles/Vol] 4.0 mmol/L Normal 3.5-5.0 [facility] Comment on above: Performed By: #### B MP #### [place] [address] Sodium [Moles/Vol] 141 mmol/L Normal 132-148 [facility] Comment on above: Performed By: #### B MP #### [place] [address] Urea nitrogen [Mass/Vol] 12 mg/dL Normal 8-25 [facility] Comment on above: Performed By: #### B MP #### [place] [address] CASE MGT INIT ASSESon 2021 CASE MGT INIT ASSES HNO ID: [id number] Author: TITO Whitt Service: ? 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 Last discharge within 30 days: No Advance Directive: Current Advance Directive: Health Care Power of Cable Installation Technician In Chart: No Health LiteracyHow often [...] Completely I feel financially burdened by my knw-nj-hslyup expenses for my prescription medication:: 0 - Disagree Completely Risk Score: 0 Patient is categorized as: Low risk < 2 Are you interested in bedside delivery of your medications? Yes Is Patient Psychosocially Complex?: No ASSESSMENT AND PLAN: Medical Needs: Medical Needs: None Psychosocial Needs: Psychosocial Needs: None FREEDOM OF CHOICE EXPLAINED: [place] of Choice Given: Yes Level of Care Discussed: Home Care Financial Disclosure Provided: Yes Financial Disclosure Comments: careport Provider List: Home Care Provider list within the patient's requested geographic area shared with the patient/family: Yes within: [address] [facility] code: [address] Quality and resource use metrics shared with [...] bedside with pt during assessment. Charo Obando [phone]. Home care referrals sent. Daughter to transport at time of discharge. SIGNATURE: TITO Whitt PATIENT NAME: Mary Leal DATE: December 25, 2021 TIME: 11:39 AM PAGER/CONTACT #: [phone] Normal [facility] CBC and Differentialon 12-25 Abs Baso 0.03 k/uL Normal <0.11 [facility] Comment on above: Performed By: #### 5 7021-8 #### [facility] CLIA [id number] [address] [place] [address] [place] Abs [place] 0.45 k/uL Normal <0.87 [facility] Comment on above: Performed By: #### 5 7021-8 #### [facility] CLIA [id number] [address] [place] [address] [place] Abs Neut 3.85 k/uL Normal 1.45-7.50 [facility] Comment on above: Performed By: #### 5 7021-8 #### [facility] CLIA [id number] [address] [place] [address] [place] Absolute nRBC <0.01 Normal <0.01 [facility] Comment on above: Performed By: #### 5 7021-8 #### [facility] CLIA [id number] [address] [place] [address] [place] Basophils/100 WBC (Bld) 0.5 % Normal [facility] Comment on above: Performed By: #### 5 7021-8 #### [facility] CLIA [id number] [address] [place] [address] [place] DTYPE Auto Diff Normal [facility] Comment on above: Performed By: #### 5 7021-8 #### [facility] CLIA [id number] [address] [place] [address] [place] Eosinophils (Bld) [#/Vol] 0.14 10*3/uL Normal <0.46 [facility] Comment on above: Performed By: #### 5 7021-8 #### [facility] CLIA [id number] [address] [place] [address] [place] Eosinophils/100 WBC (Bld) 2.3 % Normal [facility] Comment on above: Performed By: #### 5 7021-8 #### [facility] CLIA [id number] [address] [place] [address] [place] Erythrocyte distribution width (RBC) [Ratio] 11.6 % Normal 11.5-15.0 [facility] Comment on above: Performed By: #### 5 7021-8 #### [facility] CLIA [id number] [address] [place] [address] [place] Hematocrit (Bld) [Volume fraction] 35.2 % Low 36.0-46.0 [facility] Comment on above: Performed By: #### 5 7021-8 #### [facility] CLIA [id number] [address] [place] [address] [place] Hemoglobin (Bld) [Mass/Vol] 11.6 g/dL Normal 11.5-15.5 [facility] Comment on above: Performed By: #### 5 7021-8 #### [facility] CLIA [id number] [address] [place] [address] [place] Lymphocytes (Bld) [#/Vol] 1.47 10*3/uL Normal 1.00-4.00 [facility] Comment on above: Performed By: #### 5 7021-8 #### [facility] CLIA [id number] [address] [place] [address] [place] Lymphocytes/100 WBC (Bld) 24.7 % Normal [facility] Comment on above: Performed By: #### 5 7021-8 #### [facility] CLIA [id number] [address] [place] [address] [place] MCH 29.5 pG Normal 26.0-34.0 [facility] Comment on above: Performed By: #### 5 7021-8 #### [facility] CLIA [id number] [address] [place] [address] [place] MCHC (RBC) [Mass/Vol] 33.0 g/dL Normal 30.5-36.0 [facility] Comment on above: Performed By: #### 5 7021-8 #### [facility] CLIA [id number] [place] [address] [place] MCV (RBC) [Entitic vol] 89.6 fL Normal 80.0-100.0 [facility] Comment on above: Performed By: #### 5 7021-8 #### [facility] CLIA [id number] [address] [place] [address] [place] Monocytes/100 WBC (Bld) 7.6 % Normal [facility] Comment on above: Performed By: #### 5 7021-8 #### [facility] CLIA [id number] [address] [place] [address] [place] Neutrophils/100 WBC (Bld) 64.9 % Normal [facility] Comment on above: Performed By: #### 5 7021-8 #### [facility] CLIA [id number] [address] [place] [address] [place] NRBCs 0.0 /100 WBC Normal 0 [facility] Comment on above: Performed By: #### 5 7021-8 #### [facility] CLIA [id number] [address] [place] [address] [place] Platelet mean volume (Bld) [Entitic vol] 9.0 fL Normal 9.0-12.7 [facility] Comment on above: Performed By: #### 5 7021-8 #### [facility] CLIA [id number] [address] [place] [address] [place] Platelets (Bld) [#/Vol] 271 10*3/uL Normal 150-400 [facility] Comment on above: Performed By: #### 5 7021-8 #### [facility] CLIA [id number] [address] [place] [address] [place] RBC (Bld) [#/Vol] 3.93 10*6/uL Normal 3.90-5.20 [facility] Comment on above: Performed By: #### 5 7021-8 #### [facility] CLIA [id number] [address] [place] [address] [place] WBC (Bld) [#/Vol] 5.96 10*3/uL Normal 3.70-11.00 [facility] Comment on above: Performed By: #### 5 7021-8 #### [facility] CLIA [id number] [address] CONSULTon 12-25-2021 CONSULT HNO ID: [id number] Author: Tri Kowalski APRN.CHEERLEADING COACH Service: Wound/Ostomy Author Type: Nurse Practitioner Type: Consults Filed: 12/25/2021 11:37 AM Note Text: OSTOMY SERVICE CONSULT MARKET STALL VENDOR SERVICE DATE: 12/25/2021 SERVICE TIME: 1015 Consultation [...] mL 20 mEq INTRAVENOUS PRN - HYDROmorphone URBAN SOCIOLOGIST 0.5 mg/mL in NaCl 0.9% 100 mL [...] with h (more content not included)... Normal [facility] NURSING PROGon 12-25-2021 NURSING PROG HNO ID: [id number] Author: Marilyn Henning, MAKI Service: ? Author Type: Registered Nurse Type: Nursing Progress Note Filed: 12/25/2021 7:01 PM Note Text: Nursing Progress Note Patient Name: Mary Leal Patient Location: [address] __ Daily Note: 0930 Pt AANDOx3. Lap sites intact. ABD tender. URBAN SOCIOLOGIST pump running. Stoma beefy red, dark brown liquid output. Pt stated that the eye pressure felt overnite has resolved. Call remains in place until OBGYN sees pt 12/26. Pt requesting PO pain medication. 1100 Pt up to chair. [address] Ontiveros bedside. 5mg oxy ordered q4 PRN. This note was completed by: Marilyn Henning [facility] NURSING PROG HNO ID: [id number] Author: Beto Ford RN Service: ? Author Type: Registered Nurse Type: Nursing Progress Note Filed: 12/25/2021 6:12 AM Note Text: Nursing Progress Note Patient Name: Mary Leal Patient Location: [place] [address] [address] __ Daily Note: Pt has been complaining [...] This note was completed by: Beto Ford [facility] ANES POSTPROC EVALon 022 ANES POSTPROC EVAL HNO ID: [id number] Author: Charisse Aggarwal MD Service: Anesthesiology Author Type: Anesthesiologist Type: Anesthesia Postprocedure Evaluation Filed: 12/24/2021 4:17 PM Note Text: POST ANESTHESIA EVALUATION NOTE : 1970 Procedure Summary Date: 12/24/21 Room / Location: OR / OR Anesthesia Start: 810 Anesthesia Stop: 4 [...] December 24, 2021 TIME: 4:17 PM CSN: [id number] [facility] ANES PRE-OPon 12-24-2021 ANES PRE-OP HNO ID: [id number] Author: Chayito Ojeda MD Service: Anesthesiology Author [...] December 24, 2021 TIME: 7:27 AM CSN: [id number] [facility] BRIEF OP NOTon 12-24-2021 BRIEF OP NOT HNO ID: [id number] Author: Jenifer Ayala MD Service: Colorectal Author Type: Fellow Type: Brief Op Note Filed: 12/24/2021 12:16 PM Note Text: BRIEF OPERATIVE NOTE - COLORECTAL SURGERY Log ID: [id number] Surgery/Procedure Date: 12/24/2021 Incision/Procedure Start Time: 8:50 AM Incision Close/Procedure End Time: Surgeon(s) and Standards Analyst(s): Surgeon(s) and Role: Panel 1: * Mary [...] DATE: December 24, 2021 TIME: 12:10 PM [facility] NURSING PROGon 12-24-2021 NURSING PROG HNO ID: [id number] Author: Marilyn Henning RN Service: ? Author Type: Registered Nurse Type: Nursing Progress Note Filed: 12/24/2021 6:36 PM Note Text: Nursing Progress Note Patient Name: Mary Leal Patient Location: [place] [address] __ Daily Note: 1816 Pt arrived on floor with 100.2F temperature. Scheduled tylenol administered. Temperature 98.6 at 1816. Surgical incisions INTERNSHIP COORDINATOR with glue, intact. Ostomy beefy red, producing sweat. Call remains in place. Pt Educated on URBAN SOCIOLOGIST pump usage. Daughter bedside. Bed low and locked. This note was completed by: Marilyn Henning [facility] NURSING PROG HNO ID: [id number] Author: Marilyn Henning RN Service: ? Author Type: Registered Nurse Type: Nursing Progress Note Filed: 12/24/2021 4:19 PM Note Text: Nursing Progress Note Patient Name: Mary Leal Patient Location: [place] [address] __ Transfer Note: Patient transferred into room/unit PK3-33 in stable condition. Actions taken: No futher actions taken at this time. Will continue to monitor and check with patient. This note was completed by: Marilyn Henning [facility] NURSING PROG HNO ID: [id number] Author: Dianelys Lopez RN Service: Nursing Author [...] (RECOMMENDATION): None Electronically Signed By: Dianelys Lopez [facility] OPERATIVE NOon 12-24-2021 OPERATIVE NO HNO ID: [id number] Author: Mary Obrien MD Service: Colorectal Author Type: Physician Type: Operative Report Filed: 12/24/2021 12:34 PM Note Text: COLON AND RECTAL SURGERY OPERATIVE REPORT PATIENT NAME: Mary Leal ADMISSION DATE: 12/24/2021 LOG ID: [id number] SURGERY/PROCEDURE DATE: 12/24/2021 INCISION/PROCEDURE START TIME: 8:50 AM INCISION CLOSE/PROCEDURE END TIME: AGE: [age] year old SEX: female SURGEON(S)/PROCEDURALI ST(S) AND STOCK PITCHER(S): Surgeon(s) and Role: Panel 1: * Mary [...] port site. This was ligated with a fcouze-mj-aoslq Vicryl suture and was confirmed to be [...] well. The loop ileostomy was matured in Bryanna fashion to achieve 2 cm of eversion [...] Mary Obrien, (more content not included)... Normal [facility] OPERATIVE NO HNO ID: [id number] Author: Pam Wang MD Service: Urogynecology Author Type: Physician Type: Operative Report Filed: 12/28/2021 10:03 AM Note Text: OPERATIVE/PROCEDURE REPORT LOG ID: [id number] SURGERY/PROCEDURE DATE: 12/24/2021 INCISION/PROCEDURE START TIME: 8:50 AM INCISION CLOSE/PROCEDURE END TIME: 1:50 PM SURGEON(S)/PROCEDURALI ST(S) AND STOCK PITCHER(S): Surgeon(s) and Role: Panel 1: * Mary [...] of the (more content not included)... Normal [facility] Type and SCR (30D)on 022 ABO/RH(D) Positive [facility] Comment on above: Performed By: #### T SCR30 ####[facility] [place], [place] [phone] Confirm Blood Typeon 021 ABO/RH(D) Positive Normal [facility] Comment on above: Performed By: #### C ONABO ####[facility] [place], [place] [phone] Type and SCR (30D)on 021 ABO/RH(D) Positive [facility] Comment on above: Performed By: #### T SCR30 ####[facility] [place], [place] [phone] Nonvisit Note - PTon 021 Nonvisit Note - PT Chart reviewed with eval prepped for scheduled eval. KK [facility] Consenton 01-08-2021 Consent [id number]#1. 00CD:127 [facility] Coding Summary.on 01-06-2021 Coding Summary. CODING DATE: 01/06/[address] [facility] DSC STATUS: Home (Routine DC) PAYOR: [...] Eileen Scott Date Saved: 01/06/2021 09:01 am [facility] Consent for Procedure/Surger yon 01-04-2021 Consent for Procedure/Surgery [id number]#1. 00CD:127 [facility] Consent for Procedure/Surgery [id number]#1. 00CD:127 [facility] Consent for Treatmenton Consent for Treatment [id number] [id number]#1.0 0CD:127 Normal [facility] Discharge Instructionson Discharge Instructions [id number]#1. 00CD:127 Normal [facility] Inpatient Patient Summaryon 01-04-2021 Inpatient Patient Summary [address] [address] Clinical Summary Person Information Name: MARY LEAL Age: 50 Years : 1970 Sex: Female PCP: Pricila GÓMEZ DO Marital Status: Race: White Ethnicity: Non- or Language: Welsh Visit Id: Visit Reason: MIXED INCONTINENCE Speciality: Acuity: Enc Type: Outpatient Med Service: Surgery Arrival: 01/04/2021 12:31:00 Discharge: Dispo Type: Address: [address] [place] [phone] Provider Notes: Diagnosis: Problems Active Decreased bladder [...] This Visit Final Med List: acetaminophen-hydrocod one (Bode 5/325 Tab) By Mouth every 6 hours. [...] up: With: Address: When: Clifford OCONNOR [address], [address], Elias Borges [place] [address] [place], [place] [id number] Business (1) Within 2 weeks Comments: Call for followup appointment. Have a great day! Patient Education Information: EU - Cystoscopy with Botox Injection Discharge Instructions (Custom) [facility] IntraOperative Documentson 0 01-04-2021 IntraOperative Documents [id number]#1. 00CD:127 [facility] IntraOperative Documents [id number]#1. 00CD:127 [facility] Main OR Intraoperative Recor don 01-04-2021 Main OR Intraoperative Record IntraOp Document Type FTURO Summary Primary Physician: Clifford OCONNOR MD Finalized Date/Time: 01/04/21 13:27:05 Pt. Name: MARY LEAL/Sex: 1970 Female Med Rec #: [id number] Physician: Clifford OCONNOR MD Financial #: [id number] Pt. Type: O Room/Bed: / Admit/Disch: 01/04/21 12:31:00 - Institution: Case Times FTURO Entry 1 Patient Times In Room 01/04/21 13:07:00 Out Room 01/04/21 13:27:00 Procedure Times Start 01/04/21 13:19:00 Stop 01/04/21 13:23:00 Anesthesia Times Last Modified By: Niecy Tran RN 01/04/21 13:27:01 Case Attendance FTURO Entry 1 Entry 2 Entry 3 Case Attendee ANASTASIA BENSON, Clifford Dalton SWIMMING COACH, Akin Mejias SWIMMING COACH, Debi Chand Role Performed Surgeon - Primary [...] Case Attendee Niecy Tran RN Role Performed Brick Machine Operator - Primary Time In 01/04/21 13:07:00 Time Out 01/04/21 13:27:00 Procedure CYSTOSCOPY LOCAL BOTOX INJECTION(.) Comments Last Modified By: Niecy Tran RN 01/04/21 13:27:02 Surgical Procedures FTURO Entry 1 Procedure Description Procedure CYSTOSCOPY LOCAL BOTOX Modifiers . INJECTION Surgeon Description CYSTOSCOPY BOTOX 50 UNITS LOT NUMBER [id number] EXP DATE 08/2023 Primary Procedure Yes Primary [...] By: Niecy Tran RN 01/04/21 13:27 Normal [facility] Main OR Preoperative Recordo n 01-04-2021 Main OR Preoperative Record Holding Area Document Type FTURO Summary Primary Physician: Clifford OCONNOR MD Finalized Date/Time: 01/04/21 13:05:55 Pt. Name: MARY LEAL/Sex: 1970 Female Med Rec #: [id number] Physician: Clifford OCONNOR MD Financial #: [id number] Pt. Type: O Room/Bed: / Admit/Disch: 01/04/21 [...] 12:46 Niecy Tran RN 01/04/21 13:05 Normal [facility] Operative Reporton Operative Report Patient: MARY [...] arranged, F/U in two weeks. . Normal [facility] Comment on above: Result Comment: Elec tronically Signed By: ANASTASIA BENSON, Clifford Bailey\.valerie\Date and Time Signed: 01/04/21 13:30 EST Outpatient Surgery Discharge Instructionon 01-04-2021 Outpatient Surgery Discharge Instruction [place] [id number] Patient Discharge Instructions PERSON INFORMATION Name: MARY [...] Follow up: With: Address: When: Clifford OCONNOR [address] [place] [address], [address], [place] [id number] [facility] (1) Within 2 weeks Comments: Call [...] to serve you. Thank you for choosing [facility] Normal [facility] XR Shoulder - right 3 Viewso n 12-25-2020 IMPRESSION: NO SIGNIFICANT CHANGE [facility] Transcribe Date/Time: Dec 25 2020 [...] abnormality. - DIVISION OF RADIOLOGY Provider, Denise Martin pricila Davina - 12/25/2020 * * *Final Report* * [...] abnormality. - IMPRESSION IMPRESSION: NO SIGNIFICANT CHANGE Gi Asst: CAPRI Transcribe Date/Time: Dec 25 2020 12:18P Dictated by : AWA LOPEZ MD This examination was interpreted and the report reviewed and electronically signed by: AWA LOPEZ MD on Dec 25 2020 12:21PM [facility] Radiology Study observation (narrative) [facility] XR Shoulder - right 3 ViewsO rdered By: Cc Provider on 12-25-2020 [facility] PT - Assessmentson PT - Assessments [id number]#1. 00CD:127 Normal [facility] Ambulatory Clinical Summaryo n 11-11-2020 Ambulatory Clinical Summary {2m-91-65-5c-18-dn-4d- oh-14-61-4x-91-27-b3-c 9-f1}CD:[id number] Normal [facility] Patient Educationon 11-11-19 Patient Education Family Medicine [...] your urinary (more content not included)... Normal [facility] Urology Phone Visit- [facility] 11-03-2020 Urology Phone Visit- Telehealth HPI [...] communication with the patient located at [facility] [phone] , with no one else. If it [...] stricture. Follow-up With When Contact Information Francie BENSONDawna [address] [place] [address] [phone] Additional Instructions: Patient Education Urodynamic Testing Overactive Bladder, Adult I, Christy Gill , personally scribed for Dr. Marmolejo on 10/21/2020 12:00:50. . Documentation recorded by the kristaibChristy rios, accurately [...] urine stream His (more content not included)... [facility] Comment on above: Result Comment: Elec tronically Signed By: Dawna Marmolejo MD\.br\Date and Time Signed: 11/03/20 11:59 EST\.br\Electronically Co-Signed By: Christy Gill MA\.br\Date and Time Co-Signed: 10/21/20 12:01 EST Coding Summary.on 10-28-2020 Coding Summary. CODING DATE: 10/28/2020 [facility] STATUS: Home (Routine DC) PAYOR: Medicaid [...] Eileen Scott Date Saved: 10/28/2020 11:17 am [facility] Ambulatory Clinical Summaryo n 10-27-2020 Ambulatory Clinical Summary {73-68-0k-90-60-01-44- z2-vy-e9-n7-09-07-26-c 6-e5}CD:[id number] Normal [facility] Consent for Procedure/Surger yon 10-27-2020 Consent for Procedure/Surgery [id number]#1 .00CD:127 Normal [facility] Consent for Treatmenton 10-07 Consent for Treatment [id number]#1.0 0CD:127 Normal [facility] IntraOperative Documentson 1 12-28-2019 IntraOperative Documents [id number]#1 .00CD:127 Normal [facility] Patient Educationon 10-21-20 Patient Education Family [...] or depar (more content not included)... Normal [facility] XR Shoulder - right 3 Viewso n 09-29-2020 IMPRESSION: No acute osseous findings. Gi Asst: CAPRI Transcribe Date/Time: Sep 29 2020 8:37A [...] other significant abnormality. DIVISION OF RADIOLOGY Provider, Denise mcnulty Angela - 09/29/2020 * * *Final Report* * [...] abnormality. IMPRESSION IMPRESSION: No acute osseous findings. Gi Asst: PSC[facility] Transcribe Date/Time: Sep 29 2020 8:37A Dictated by : FLORENCE TORRES MD This examination was interpreted and the report reviewed and electronically signed by: FLORENCE TORRES MD on Sep 29 2020 8:38AM EST [facility] Radiology Study observation (narrative) [facility] XR Shoulder - right 3 ViewsO rdered By: Cc Provider on 09-29-2020 [facility] PT - Assessmentson 0 PT - Assessments [id number]#1. 00CD:127 Normal [facility] Nonvisit Note - PTon 020 Nonvisit Note - PT Per voicemail: she needs to cancel all of her PT due to personal reasons. KK Normal [facility] Provider Letteron 09-09-2020 Provider Letter September 09, 2020 MARY LEAL [address] [place] [address] MARY LEAL 1970 Dear Mary Leal, You [...] understanding. Sincerely, [facility] [address], [place] [address] [facility] PT - Assessmentson 0 PT - Assessments [id number]#1. 00CD:127 [facility] PT - Assessments [id number]#1. 00CD:127 [facility] PT - Assessmentson 0 PT - Assessments [id number]#1. 00CD:127 [facility] PT - Consentson 08-31-2020 PT - Consents [id number]#1. 00CD:127 [facility] Pre-Certification Formon Pre-Certification Form [id number]#1.0 0CD:127 [facility] Pre-Certification Form [id number]#1.0 0CD:127 [facility] Consent for Procedure/Surger yon 08-26-2020 Consent for Procedure/Surgery [id number]#1.0 0CD:127 [facility] Ambulatory Clinical Summaryo n 08-25-2020 Ambulatory Clinical Summary {sy-6i-4p-45-96-v2-40- 0a-41-tv-7c-66-91-e1-7 d}CD:[id number] [facility] Patient Educationon 08-25-20 Patient Education Family [...] an extended amount of time. Only take cihx-gfd-kxbhesb or prescription medicines for pain, discomfort, or [...] Reviewed: 09/07/2009 ExitCare? Patient Information ?2013 [employer]. [facility] Urology Office/Clinic Noteon 08-25-2020 Urology Office/Clinic [...] Alzheimer's disease: Mother. Hypertension: Mother and Father. [facility] Comment on above: Result Comment: Elec tronically Signed By: Francie BENSON, Dawna Feldman\.br\Date and Time Signed: 08/25/20 10:06 EDT\.br\Electronically Co-Signed By: Mary Hager\.br\Date and Time Co-Signed: 08/25/20 09:51 EDT Coding Summary.on 08-21-2020 Coding Summary. CODING DATE: 08/21/2020 FINAL [facility] STATUS: PAYOR: Medicaid EA DESCRIPTION [...] Raymond CphT Date Saved: 08/21/2020 10:42 am [facility] 08-21-2020 Consent [id number]#1.0 0CD:127 [facility] Ambulatory Clinical Summaryo n 08-19-2020 Ambulatory Clinical Summary {t4-cb-36-x6-9r-6n-47- 28-09-89-22-8g-h5-d1-c }CD:[id number] [facility] Ambulatory Clinical Summary {90-2m-04-7n-7a-6h-4f- 69-d1-30-69-83-85-b0-0 d-3c}CD:480501 Normal [facility] Nonvisit Note - PTon 020 Nonvisit Note - PT Chart reviewed for scheduled eval. KK Normal [facility] Patient Educationon 08-19-20 20 Patient Education [...] your urinary (more content not included)... Normal [facility] Urology Phone Visit- Telehealth [...] communication with the patient located at [facility] [phone], with no one else. If it is [...] questions/concerns were discussed. Pt. acknowledges understanding. Ordered: [facility] External Ambulatory Referral Urology Procedure Order 2. Dysuria (R30.0: Dysuria) Moderate. Ordered: [facility] External Ambulatory Referral Urology Procedure Order 3. Feeling of incomplete bladder emptying (R39.14: Feeling of incomplete bladder emptying) Pt. does not feel that she is emptying. Ordered: [facility] External Ambulatory Referral Urology Procedure Order 4. Weak urine stream (R39.12: Poor urinary stream) Weak stream w/ moderate hesitancy. Ordered: [facility] External Ambulatory Referral Urology Procedure Order 5. [...] Will order Local anesthesia. ABX sent to [facility] in [place]. Ordered: [facility] External Ambulatory Referral Urology Procedure Order 6. [...] changes. Patient who (more content not included)... [facility] Comment on above: Result Comment: Elec tronically Signed By: Francie BENSON, Dawna Feldman\.br\Date and Time Signed: 08/19/20 08:53 EDT\.br\Electronically Co-Signed By: Christy Gill MA\.br\Date and Time Co-Signed: 08/19/20 08:44 EDT Coding Summary.on 08-12-2020 Coding Summary. CODING DATE: 08/12/[address] [facility] DSC STATUS: Home (Routine DC) PAYOR: [...] Demi Fried Date Saved: 08/12/2020 09:42 am [facility] Formson 08-11-2020 Forms [id number] 00 [id number]#1.0 0CD:127 [facility] C Urineon 08-09-2020 Bacteria identified [...] Locations R1: This test was performed at: [facility], [address] [place] [address], [address] , [place], Normal [facility] Comment on above: Performed By: #### 2 [id number] ####[facility] [address] [place] [address] Ambulatory Clinical Summaryo n 08-07-2020 Ambulatory Clinical Summary {2f-e2-42-au-15-90-4a- 54-60-by-71-51-9y-ba-8 4-a2}CD:[id number] Normal [facility] Patient Educationon 08-07-20 Patient Education Kegel [...] Document Reviewed: 07/18/2013 ExitCare? Patient Information ?2013 [facility]. Family Medicine Overactive Bladder, Adult The [...] bladder, your (more content not included)... 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 Normal [facility] Comment on above: Result Comment: Elec tronically Signed By: Dawna Marmolejo MD\.br\Date and Time Signed: 08/07/20 15:54 EDT\.br\Electronically Co-Signed By: Radha Lopez MA\.br\Date and Time Co-Signed: 08/07/20 15:44 EDT Vital Signs Date Time Vital Sign Value Performing Clinician Facility 11-12-2024 08:27-0500 Body mass index (BMI) [Ratio] 26.61 kg/m2 Dipti Acevedo DO Work Phone: [facility] 11-12-2024 08:27-0500 Body weight 70.31 kg Dipti Acevedo DO Work Phone: [facility] 11-12-2024 08:27-0500 Diastolic blood pressure 84 mm[Hg] Dipti Acevedo [place] Work Phone: [facility] 11-12-2024 08:27-0500 Systolic blood pressure 122 mm[Hg] Dipti Acevedo DO Work Phone: [facility] 10-24-2024 09:20-0500 Diastolic blood pressure 70 mm[Hg] Shannon Szymanskileigha DO Work Phone: [facility] 10-24-2024 09:20-0500 Heart rate 68 /min Shannon Szymanskileigha DO Work Phone: [facility] 10-24-2024 09:20-0500 Respiratory rate 16 /min Shannon Szymanskileigha DO Work Phone: [facility] 10-24-2024 09:20-0500 SaO2% (BldA) [Mass fraction] 100 % Shannon Szymanskileigha DO Work Phone: [facility] 10-24-2024 09:20-0500 Systolic blood pressure 109 mm[Hg] Shannon Szymanskileigha DO Work Phone: [facility] 10-24-2024 08:30-0500 Body temperature 98 [degF] Shannon Szymanskileigha DO Work Phone: [facility] 10-24-2024 08:03-0500 Inhaled oxygen flow rate 8 L/min Shannon Szymanskileigha DO Work Phone: [facility] 10-24-2024 06:36-0500 Body height 162.56 cm Shannon Szymanskileigha DO Work Phone: [facility] 10-24-2024 06:36-0500 Body weight 69.39 kg GReno Gómez DO Work Phone: [facility] 10-23-2024 10:43-0500 Body height 162.6 cm Radha Cardenas MD Work Phone: [facility] 10-23-2024 10:43-0500 Body mass index (BMI) [Ratio] 26.26 kg/m2 Radha Cardenas MD Work Phone: [facility] 10-23-2024 10:43-0500 Body weight 69.4 kg Radha Cardenas MD Work Phone: [facility] 10-23-2024 10:43-0500 Diastolic blood pressure 80 mm[Hg] Radha Cardenas MD Work Phone: [facility] 10-23-2024 10:43-0500 Heart rate 68 /min Radha Cardenas MD Work Phone: [facility] 10-23-2024 10:43-0500 SaO2% (BldA) [Mass fraction] 98 % Radha Cardenas MD Work Phone: [facility] 10-23-2024 10:43-0500 Systolic blood pressure 112 mm[Hg] Radha Cardenas MD Work Phone: [facility] 10-15-2024 15:04-0500 Body mass index (BMI) [Ratio] 26.61 kg/m2 Dipti Acevedo DO Work Phone: [facility] 10-15-2024 15:04-0500 Body weight 70.31 kg Dipti Acevedo DO Work Phone: [facility] 10-15-2024 15:04-0500 Diastolic blood pressure 68 mm[Hg] Dipti Acevedo DO Work Phone: [facility] 10-15-2024 15:04-0500 Systolic blood pressure 108 mm[Hg] Dipti Acevedo DO Work Phone: [facility] 10-14-2024 08:26-0500 Body height 162.56 cm G. Parish Gómez DO Work Phone: [facility] 10-14-2024 08:26-0500 Body mass index (BMI) [Ratio] 26.2 kg/m2 G. Parish Gómez DO Work Phone: [facility] 10-14-2024 08:26-0500 Body weight 69.39 kg G. Parish Gómez DO Work Phone: [facility] 09-26-2024 16:19-0500 Body height 162.6 cm Ron King NEGATIVE TURNER Work Phone: [facility] 09-26-2024 16:19-0500 Body mass index (BMI) [Ratio] 26.64 kg/m2 Ron King NEGATIVE TURNER Work Phone: [facility] 09-26-2024 16:19-0500 Body temperature 97.5 [degF] Ron King NEGATIVE TURNER Work Phone: [facility] 09-26-2024 16:19-0500 Body weight 70.4 kg Ron King NEGATIVE TURNER Work Phone: [facility] 09-26-2024 16:19-0500 Diastolic blood pressure 90 mm[Hg] Ron King NEGATIVE TURNER Work Phone: [facility] 09-26-2024 16:19-0500 Heart rate 85 /min Ron King NEGATIVE TURNER Work Phone: [facility] 09-26-2024 16:19-0500 SaO2% (BldA) [Mass fraction] 99 % Ron King NEGATIVE TURNER Work Phone: [facility] 09-26-2024 16:19-0500 Systolic blood pressure 142 mm[Hg] Ron King NEGATIVE TURNER Work Phone: [facility] 09-16-2024 14:56-0500 Body height 162.56 cm [facility] 09-16-2024 14:56-0500 Body mass index (BMI) [Ratio] 25.5 kg/m2 [facility] 09-16-2024 14:56-0500 Body weight 67.58 kg [facility] 09-04-2024 14:30-0400 Body height 162.6 cm Ron King NEGATIVE TURNER Work Phone: [facility] 09-04-2024 14:30-0400 Body mass index (BMI) [Ratio] 25.58 kg/m2 Ron Benedicty NEGATIVE TURNER Work Phone: [facility] 09-04-2024 14:30-0400 Body temperature 97.5 [degF] Ron Benedicty NEGATIVE TURNER Work Phone: [facility] 09-04-2024 14:30-0400 Body weight 67.59 kg Ron King NEGATIVE TURNER Work Phone: [facility] 09-04-2024 14:30-0400 Diastolic blood pressure 76 mm[Hg] Ron Benedicty NEGATIVE TURNER Work Phone: [facility] 09-04-2024 14:30-0400 Heart rate 55 /min Ron Benedicty NEGATIVE TURNER Work Phone: [facility] 09-04-2024 14:30-0400 SaO2% (BldA) [Mass fraction] 99 % Ron King NEGATIVE TURNER Work Phone: [facility] 09-04-2024 14:30-0400 Systolic blood pressure 110 mm[Hg] Ron Benedicty NEGATIVE TURNER Work Phone: [facility] 08-07-2024 09:12-0400 Body height 162.6 cm Radha Cardenas MD Work Phone: [facility] 08-07-2024 09:12-0400 Body mass index (BMI) [Ratio] 26.43 kg/m2 Radha Cardenas MD Work Phone: [facility] 08-07-2024 09:12-0400 Body temperature 97.3 [degF] Radha Cardenas MD Work Phone: [facility] 08-07-2024 09:12-0400 Body weight 69.85 kg Radha Cardenas MD Work Phone: [facility] 08-07-2024 09:12-0400 Diastolic blood pressure 82 mm[Hg] Radha Cardenas MD Work Phone: [facility] 08-07-2024 09:12-0400 Heart rate 68 /min Radha Cardenas MD Work Phone: [facility] 08-07-2024 09:12-0400 SaO2% (BldA) [Mass fraction] 100 % Radha Cardenas MD Work Phone: [facility] 08-07-2024 09:12-0400 Systolic blood pressure 120 mm[Hg] Radha Cardenas MD Work Phone: [facility] 08-01-2024 15:22-0400 Body height 162.6 cm Eliceo Gómez DO Work Phone: [facility] 08-01-2024 15:22-0400 Body mass index (BMI) [Ratio] 25.73 kg/m2 Eliceo Gómez DO Work Phone: [facility] 08-01-2024 15:22-0400 Body temperature 96.8 [degF] Eliceo Gómez DO Work Phone: [facility] 08-01-2024 15:22-0400 Body weight 68 kg Eliceo Gómez DO Work Phone: [facility] 08-01-2024 15:22-0400 Diastolic blood pressure 60 mm[Hg] Eliceo Gómez DO Work Phone: [facility] 08-01-2024 15:22-0400 Heart rate 98 /min Eliceo Gómez DO Work Phone: [facility] 08-01-2024 15:22-0400 SaO2% (BldA) [Mass fraction] 99 % Eliceo Gómez DO Work Phone: [facility] 08-01-2024 15:22-0400 Systolic blood pressure 122 mm[Hg] Eliceo Gómez DO Work Phone: [facility] 07-11-2024 09:44-0400 Body height 162.6 cm Eliceo Gómez DO Work Phone: [facility] 07-11-2024 09:44-0400 Body mass index (BMI) [Ratio] 26.09 kg/m2 Eliceo Gómez DO Work Phone: [facility] 07-11-2024 09:44-0400 Body temperature 97.11 [degF] Eliceo Gómez DO Work Phone: [facility] 07-11-2024 09:44-0400 Body weight 68.95 kg Eliceo Gómez DO Work Phone: [facility] 07-11-2024 09:44-0400 Diastolic blood pressure 64 mm[Hg] Eliceo Gómez DO Work Phone: [facility] 07-11-2024 09:44-0400 Heart rate 86 /min Eliceo Gómez DO Work Phone: [facility] 07-11-2024 09:44-0400 SaO2% (BldA) [Mass fraction] 97 % Eliceo Gómez DO Work Phone: [facility] 07-11-2024 09:44-0400 Systolic blood pressure 108 mm[Hg] Eliceo Gómez DO Work Phone: [facility] 04-12-2024 13:10-0400 Diastolic blood pressure 75 mm[Hg] Milagros Franco MD, PhD Work Phone: [facility] 04-12-2024 13:10-0400 Heart rate 62 /min Milagros Franco MD, PhD Work Phone: [facility] 04-12-2024 13:10-0400 Respiratory rate 20 /min Milagros Franco MD, PhD Work Phone: [facility] 04-12-2024 13:10-0400 SaO2% (BldA) [Mass fraction] 100 % Milagros Franco MD, PhD Work Phone: [facility] 04-12-2024 13:10-0400 Systolic blood pressure 121 mm[Hg] Milagros Franco MD, PhD Work Phone: [facility] 04-12-2024 11:35-0400 Body height 162.6 cm Milagros Franco MD, PhD Work Phone: [facility] 04-12-2024 11:35-0400 Body mass index (BMI) [Ratio] 25.75 kg/m2 Milagros Franco MD, PhD Work Phone: [facility] 04-12-2024 11:35-0400 Body temperature 97.9 [degF] Milagros Franco MD, PhD Work Phone: [facility] 04-12-2024 11:35-0400 Body weight 68.04 kg Milagros Franco MD, PhD Work Phone: [facility] 02-27-2024 09:48-0400 Body height 162.6 cm Flower Lopez APRN.CHEERLEADING COACH Work Phone: [facility] 02-27-2024 09:48-0400 Body mass index (BMI) [Ratio] 26.45 kg/m2 Flower Lopez MARKET STALL VENDOR.CHEERLEADING COACH Work Phone: [facility] 02-27-2024 09:48-0400 Body weight 69.9 kg Flower Lopez MARKET STALL VENDOR.CHEERLEADING COACH Work Phone: [facility] 02-27-2024 09:48-0400 Diastolic blood pressure 93 mm[Hg] Flower Lopez MARKET STALL VENDOR.CHEERLEADING COACH Work Phone: [facility] 02-27-2024 09:48-0400 Heart rate 62 /min Flower Lopez APRN.CHEERLEADING COACH Work Phone: [facility] 02-27-2024 09:48-0400 Systolic blood pressure 146 mm[Hg] Flower Lopez CHEERLEADING COACH Work Phone: [facility] 01-25-2024 09:05-0400 Body height 162.6 cm [employer] Work Phone: [facility] 01-25-2024 09:05-0400 Body weight 68.04 kg [employer] Work Phone: [facility] 01-25-2024 09:05-0400 Heart rate 84 /min [employer] Work Phone: [facility] 01-25-2024 09:05-0400 Respiratory rate 16 /min [employer] Work Phone: [facility] 01-10-2024 12:40-0500 Body height 162.6 cm Cullen Dawkins MD Work Phone: [facility] 01-10-2024 12:40-0500 Body mass index (BMI) [Ratio] 27.89 kg/m2 Cullen Dawkins MD Work Phone: [facility] 01-10-2024 12:40-0500 Body weight 73.7 kg Cullen Dawkins MD Work Phone: [facility] 12-20-2023 12:21-0500 Body height 162.6 cm [facility] 12-20-2023 12:21-0500 Body mass index (BMI) [Ratio] 28.38 kg/m2 [facility] 12-20-2023 12:21-0500 Body temperature 98.2 [degF] [facility] 12-20-2023 12:21-0500 Body weight 75 kg [facility] 12-20-2023 12:21-0500 Diastolic blood pressure 90 mm[Hg] [facility] 12-20-2023 12:21-0500 Heart rate 72 /min [facility] 12-20-2023 12:21-0500 Respiratory rate 18 /min [facility] 12-20-2023 12:21-0500 SaO2% (BldA) [Mass fraction] 96 % [facility] 12-20-2023 12:21-0500 Systolic blood pressure 138 mm[Hg] [facility] 11-23-2023 08:14-0500 Body height 162.56 cm DO Shannon Gómez Work Phone: [facility] 11-23-2023 08:14-0500 Body weight 70.3 kg DO Shannon Gómez Work Phone: [facility] 08-12-2023 07:08-0400 Diastolic blood pressure 65 mm[Hg] Lex Salmon MD Work Phone: [facility] 08-12-2023 07:08-0400 Heart rate 77 /min Lex Salmon MD Work Phone: [facility] 08-12-2023 07:08-0400 SaO2% (BldA) [Mass fraction] 98 % Lex Salmon MD Work Phone: [facility] 08-12-2023 07:08-0400 Systolic blood pressure 132 mm[Hg] Lex Salmon MD Work Phone: [facility] 08-12-2023 06:48-0400 Respiratory rate 13 /min Lex Salmon MD Work Phone: [facility] 08-12-2023 00:25-0400 Body height 162.6 cm Lex Salmon MD Work Phone: [facility] 08-12-2023 00:25-0400 Body mass index (BMI) [Ratio] 28.01 kg/m2 Lex Salmon MD Work Phone: [facility] 08-12-2023 00:25-0400 Body temperature 97.59 [degF] Lex Salmon MD Work Phone: [facility] 08-12-2023 00:25-0400 Body weight 74.03 kg Lex Salmon MD Work Phone: [facility] 07-31-2023 14:27-0400 Body height 162.6 cm Nelsy Chávez MARKET STALL VENDOR.CHEERLEADING COACH Work Phone: [facility] 07-31-2023 14:27-0400 Body weight 69.85 kg Nelsy Chávez MARKET STALL VENDOR.CHEERLEADING COACH Work Phone: [facility] 07-31-2023 14:27-0400 Diastolic blood pressure 96 mm[Hg] Nelsy Chávez MARKET STALL VENDOR.CHEERLEADING COACH Work Phone: [facility] 07-31-2023 14:27-0400 Heart rate 76 /min Nelsy Chávez MARKET STALL VENDOR.CHEERLEADING COACH Work Phone: [facility] 07-31-2023 14:27-0400 Systolic blood pressure 136 mm[Hg] Nelsy Chávez MARKET STALL VENDOR.CHEERLEADING COACH Work Phone: [facility] 06-13-2023 10:37-0400 Body height 162.56 cm Eliceo Gómez Work Phone: [facility] [address] DO Work Phone: 06-13-2023 10:37-0400 Body mass index (BMI) [Ratio] 27.46 kg/m2 Eliceo Gómez Work Phone: [facility] [address] DO Work Phone: 06-13-2023 10:37-0400 Body surface area Derived from formula 1.78 m2 Eliceo Gómez Work Phone: [facility] [address] DO Work Phone: 06-13-2023 10:37-0400 Body weight 72.58 kg Eliceo Gómez Work Phone: [facility] [address] DO Work Phone: 06-13-2023 10:37-0400 Diastolic blood pressure 70 mm[Hg] Eliceo Gómez Work Phone: [facility] [address] DO Work Phone: 06-13-2023 10:37-0400 Heart rate 70 /min Eliceo Gómez Work Phone: [facility] [address] DO Work Phone: 06-13-2023 10:37-0400 Systolic blood pressure 100 mm[Hg] Eliceo Gómez Work Phone: [facility] [address] DO Work Phone: 06-13-2023 10:37-0400 11 1 Eliceo Gómez Work Phone: [facility] [address] DO Work Phone: Comment on above: [id number] TS 06-05-2023 13:23-0400 Diastolic blood pressure 68 mm[Hg] DO Shannon Szymanskijerometomasa Work Phone: [facility] 06-05-2023 13:23-0400 Heart rate 72 /min DO Shannon Gómez Work Phone: [facility] 06-05-2023 13:23-0400 Respiratory rate 18 /min DO Shannon Gómez Work Phone: [facility] 06-05-2023 13:23-0400 SaO2% (BldA) [Mass fraction] 97 % DO Shannon Szymanskijerometomasa Work Phone: [facility] 06-05-2023 13:23-0400 Systolic blood pressure 129 mm[Hg] DO Shannon Szymanskijerometomasa Work Phone: [facility] 06-05-2023 09:32-0400 Body height 162.56 cm DO Shannon Szymanskijerometomasa Work Phone: [facility] 06-05-2023 09:32-0400 Body weight 73.9 kg DO Shannon Szymanskijerometomasa Work Phone: [facility] 06-05-2023 09:31-0400 Body temperature 97.5 [degF] DO PricilaReno Szymanskileigha Work Phone: [facility] 01-16-2023 13:18-0400 Body height 162.6 cm [facility] 01-16-2023 13:18-0400 Body weight 68.[address] [facility] 11-21-2022 08:00-0500 Body height 162.[address] [facility] 2 Work Phone: [facility] 11-21-2022 08:00-0500 Body weight 64.[address] [facility] 2 Work Phone: [facility] 10-11-2022 10:08-0500 Body height 162.6 cm Isra Masters Work Phone: [facility] 10-11-2022 10:08-0500 Body weight 78.02 kg Isra Masters DO Work Phone: [facility] 10-11-2022 10:08-0500 Diastolic blood pressure 97 mm[Hg] Isra Masters DO Work Phone: [facility] 10-11-2022 10:08-0500 Heart rate 89 /min Isra Masters DO Work Phone: [facility] 10-11-2022 10:08-0500 Systolic blood pressure 141 mm[Hg] Isra Masters DO Work Phone: [facility] 10-10-2022 14:30-0500 Body height 162.56 cm Beto Olexa Other [facility] Other 10-10-2022 14:30-0500 Body mass index (BMI) [Ratio] 28.66 kg/m2 Beto Olexa Other [facility] Other 10-10-2022 14:30-0500 Body weight 75.75 kg Beto Olexa Other [facility] Other 07-26-2022 11:13-0400 Body height 162.6 cm Mary Obrien MD Work Phone: [facility] 07-26-2022 11:13-0400 Body temperature 97.5 [degF] Mary Obrien MD Work Phone: [facility] 07-26-2022 11:13-0400 Body weight 77.56 kg Mary Obrien MD Work Phone: [facility] 07-26-2022 11:13-0400 Diastolic blood pressure 83 mm[Hg] Mary Obrien MD Work Phone: [facility] 07-26-2022 11:13-0400 Heart rate 95 /min Mary Obrien MD Work Phone: [facility] 07-26-2022 11:13-0400 SaO2% (BldA) [Mass fraction] 97 % Mary Obrien MD Work Phone: [facility] 07-26-2022 11:13-0400 Systolic blood pressure 110 mm[Hg] Mary Obrien MD Work Phone: [facility] 05-26-2022 11:45-0400 Body height 162.56 cm Beto Snyder Other [employer] Other 05-26-2022 11:45-0400 Body mass index (BMI) [Ratio] 29.18 kg/m2 Beto Snyder Other [employer] Other 05-26-2022 11:45-0400 Body weight 77.11 kg Beto Snyder Other [employer] Other 05-12-2022 09:06-0400 Diastolic blood pressure 80 mm[Hg] Eliceo Gómez Work Phone: [facility] [place] [address] DO Work Phone: 05-12-2022 09:06-0400 Systolic blood pressure 126 mm[Hg] Eliceo Gómez Work Phone: [facility] [employer] [address] DO Work Phone: 05-12-2022 08:57-0400 Body height 162.56 cm Eliceo Gómez Work Phone: [facility] [address] DO Work Phone: 05-12-2022 08:57-0400 Body mass index (BMI) [Ratio] 29.87 kg/m2 Eliceo Gómez Work Phone: [facility] [address] DO Work Phone: 05-12-2022 08:57-0400 Body surface area Derived from formula 1.84 m2 Eliceo Gómez Work Phone: [facility] [address] DO Work Phone: 05-12-2022 08:57-0400 Body weight 78.93 kg Eliceo Gómez Work Phone: [facility] [address] DO Work Phone: 05-12-2022 08:57-0400 Diastolic blood pressure 80 mm[Hg] Eliceo Gómez Work Phone: [facility] [address] DO Work Phone: 05-12-2022 08:57-0400 Heart rate 68 /min Eliceo Gómez Work Phone: [facility] [address] DO Work Phone: 05-12-2022 08:57-0400 Systolic blood pressure 130 mm[Hg] Eliceo Gómez Work Phone: [facility] [address] DO Work Phone: 05-10-2022 12:30-0400 Body height 162.56 cm Allison Arita Other [employer] Other 05-10-2022 12:30-0400 Body mass index (BMI) [Ratio] 29.18 kg/m2 Allison Arita Other [facility] Other 05-10-2022 12:30-0400 Body temperature 97.3 [degF] Allison Arita Other [employer] Other 05-10-2022 12:30-0400 Body weight 77.11 kg Allison Arita Other [facility] Other 05-10-2022 12:30-0400 Respiratory rate 18 /min Allison Arita Other [facility] Other 05-10-2022 12:30-0400 SaO2% (BldA) [Mass fraction] 98 % Allison Arita Other [facility] Other 04-22-2022 12:04-0400 Body height 162.6 cm Jessi Sheets APRN.CHEERLEADING COACH Work Phone: [facility] 04-22-2022 12:04-0400 Body weight 77.56 kg Jessi Sheets MARKET STALL VENDOR.CHEERLEADING COACH Work Phone: [facility] 04-22-2022 12:04-0400 Diastolic blood pressure 68 mm[Hg] Jessi Sheets MARKET STALL VENDOR.CHEERLEADING COACH Work Phone: [facility] 04-22-2022 12:04-0400 Heart rate 76 /min Jessi Sheets MARKET STALL VENDOR.CHEERLEADING COACH Work Phone: [facility] 04-22-2022 12:04-0400 SaO2% (BldA) [Mass fraction] 98 % Jessi Sheets MARKET STALL VENDOR.CHEERLEADING COACH Work Phone: [facility] 04-22-2022 12:04-0400 Systolic blood pressure 104 mm[Hg] Jessi Sheets MARKET STALL VENDOR.CHEERLEADING COACH Work Phone: [facility] 03-15-2022 16:30-0400 Body height 162.56 cm Beto Snyder Other [facility] Other 03-15-2022 16:30-0400 Body mass index (BMI) [Ratio] 30.55 kg/m2 Beto Snyder Other [facility] Other 03-15-2022 16:30-0400 Body weight 80.74 kg Beto Snyder Other [facility] Other 03-15-2022 08:36-0400 Body height 162.6 cm Isra Galarzae DO Work Phone: [facility] 03-15-2022 08:36-0400 Body weight 83.01 kg Isra Galarzae DO Work Phone: [facility] 03-15-2022 08:36-0400 Diastolic blood pressure 87 mm[Hg] Isra Galarzae DO Work Phone: [facility] 03-15-2022 08:36-0400 Heart rate 85 /min Isra Galarzae DO Work Phone: [facility] 03-15-2022 08:36-0400 SaO2% (BldA) [Mass fraction] 100 % Isra Masters DO Work Phone: [facility] 03-15-2022 08:36-0400 Systolic blood pressure 133 mm[Hg] Isra Masters DO Work Phone: [facility] 03-14-2022 10:23-0400 Body height 162.6 cm [employer] 4 Work Phone: [facility] 03-14-2022 10:23-0400 Body temperature 97.2 [degF] [employer] 4 Work Phone: [facility] 03-14-2022 10:23-0400 Body weight 83.01 kg [employer]acc 4 Work Phone: [facility] 03-14-2022 10:23-0400 Diastolic blood pressure 76 mm[Hg] Pacc 4 Work Phone: [facility] 03-14-2022 10:23-0400 Heart rate 74 /min Pacc 4 Work Phone: [facility] 03-14-2022 10:23-0400 Respiratory rate 16 /min Pacc 4 Work Phone: [facility] 03-14-2022 10:23-0400 SaO2% (BldA) [Mass fraction] 98 % Pac 4 Work Phone: [facility] 03-14-2022 10:23-0400 Systolic blood pressure 114 mm[Hg] Pacc 4 Work Phone: [facility] 02-18-2022 09:43-0400 Body height 162.6 cm Nelsy Chávez MARKET STALL VENDOR.CHEERLEADING COACH Work Phone: [facility] 02-18-2022 09:43-0400 Body weight 80.29 kg Nelsy Chávez MARKET STALL VENDOR.CHEERLEADING COACH Work Phone: [facility] 02-18-2022 09:43-0400 Diastolic blood pressure 70 mm[Hg] Nelsy Chávez MARKET STALL VENDOR.CHEERLEADING COACH Work Phone: [facility] 02-18-2022 09:43-0400 Systolic blood pressure 110 mm[Hg] Nelsy Chávez MARKET STALL VENDOR.CHEERLEADING COACH Work Phone: [facility] 02-08-2022 14:52-0400 Body height 162.6 cm Mary Obrien MD Work Phone: [facility] 02-08-2022 14:52-0400 Body weight 83.01 kg Mary Obrien MD Work Phone: [facility] 02-08-2022 14:52-0400 Diastolic blood pressure 76 mm[Hg] Mary Obrien MD Work Phone: [facility] 02-08-2022 14:52-0400 Heart rate 79 /min Mary Obrien MD Work Phone: [facility] 02-08-2022 14:52-0400 SaO2% (BldA) [Mass fraction] 97 % Mary Obrien MD Work Phone: [facility] 02-08-2022 14:52-0400 Systolic blood pressure 113 mm[Hg] Mary Obrien MD Work Phone: [facility] 02-08-2022 11:19-0400 Body weight 83.01 kg Magali Mitchell MARKET STALL VENDOR.CHEERLEADING COACH Work Phone: [facility] 02-08-2022 11:19-0400 Diastolic blood pressure 76 mm[Hg] Magali Mitchell MARKET STALL VENDOR.CHEERLEADING COACH Work Phone: [facility] [facility] 02-08-2022 11:19-0400 Heart rate 74 /min Magali Mitchell MARKET STALL VENDOR.CHEERLEADING COACH Work Phone: [facility] 02-08-2022 11:19-0400 Systolic blood pressure 113 mm[Hg] Magali Mitchell MARKET STALL VENDOR.CHEERLEADING COACH Work Phone: [facility] 10-20-2021 09:45-0500 Body height 162.56 cm Beto Snyder Other [facility] Other 10-20-2021 09:45-0500 Body mass index (BMI) [Ratio] 31.41 kg/m2 Beto Snyder Other [facility] Other 10-20-2021 09:45-0500 Body weight 83.01 kg Beto Snyder Other [facility] Other 08-19-2021 17:10-0400 Body height 162.56 cm Erica Kingston Other [facility] Other 08-19-2021 17:10-0400 Body mass index (BMI) [Ratio] 31.24 kg/m2 Erica Kingston Other [facility] Other 08-19-2021 17:10-0400 Body temperature 97.3 [degF] Erica Kingston Other [facility] Other 08-19-2021 17:10-0400 Body weight 82.56 kg Erica Kingston Other [facility] Other 08-19-2021 17:10-0400 Diastolic blood pressure 82 mm[Hg] Erica Kumarmond Other [facility] Other 08-19-2021 17:10-0400 Respiratory rate 18 /min Erica Kingston Other [facility] Other 08-19-2021 17:10-0400 SaO2% (BldA) [Mass fraction] 98 % Erica Kingston Other [facility] Other 08-19-2021 17:10-0400 Systolic blood pressure 126 mm[Hg] Erica Kingston Other [facility] Other 08-13-2021 10:15-0400 Body height 162.56 cm Tita Ginty Other [facility] Other 08-13-2021 10:15-0400 Body mass index (BMI) [Ratio] 30.89 kg/m2 Tita Ginty Other [facility] Other 08-13-2021 10:15-0400 Body temperature 6 [degF] Tita Ginty Other [facility] Other 08-13-2021 10:15-0400 Body weight 81.65 kg Tita Ginty Other [facility] Other 08-13-2021 10:15-0400 SaO2% (BldA) [Mass fraction] 99 % Tita Ginty Other [facility] Other 07-28-2021 09:30-0400 Body height 162.56 cm Beto Pradeeptonia Other [facility] Other 07-28-2021 09:30-0400 Body mass index (BMI) [Ratio] 30.89 kg/m2 Beto Snyder Other [facility] Other 07-28-2021 09:30-0400 Body weight 81.65 kg Beto Pradeeptonia Other [facility] Other Encounters Encounter Date Encounter Type Care Provider Facility Start: 01-25-2025 End: 01-25-2025 Orders Only Pauline Christensen MD Work Phone: [facility] Start: 01-20-2025 End: 01-20-2025 Bamboo flowsheet Eliceo Gómez DO Work Phone: [facility] Start: 01-20-2025 End: 01-20-2025 Bamboo flowsheet Eliceo Gómez DO Work Phone: [facility] Start: 01-20-2025 End: 01-20-2025 ambulatory NANCY SWENSON Not Available Start: 01-03-2025 End: 01-03-2025 Clinisync Result Encounter Generic External Data Provider [facility] External Department Unsolicited Start: 01-03-2025 End: 01-03-2025 Clinisync Result Encounter Generic External Data Provider [facility] External Department Unsolicited Start: 12-16-2024 End: 12-16-2024 Patient encounter procedure Shannon Gómez DO Work Phone: [facility] [address] Work Phone: Start: 12-16-2024 End: 12-16-2024 ambulatory Shannon Gómez DO Work Phone: [facility] Work Phone: Start: 12-11-2024 End: 12-11-[address] [place] [address] [facility] Start: 12-10-2024 End: 12-11-2024 Refill Demi Machado [facility] Comment on above: Other migraine witho ut status migrainosus, not intractable Start: 11-26-2024 End: 11-26-2024 Refill Eliceo Gómez DO Work Phone: [facility] Comment on above: Restless legs syndro me Start: 11-20-2024 End: 11-20-2024 ambulatory Shannon Szymanskileigha DO Work Phone: [facility] Work Phone: Start: 11-20-2024 End: 11-20-2024 Patient encounter procedure Shannon Szymanskileigha DO Work Phone: [facility] Work Phone: Start: 11-19-2024 End: 11-19-2024 Bamboo flowsheet Nelsy A Felter MARKET STALL VENDOR-CHEERLEADING COACH Work Phone: [facility] Start: 11-19-2024 End: 11-19-2024 Bamboo flowsheet Nelsy A Felter MARKET STALL VENDOR-CHEERLEADING COACH Work Phone: [facility] Start: 11-19-2024 End: 11-19-2024 Office outpatient visit 15 minutes Nelsy A Felter MARKET STALL VENDOR-CHEERLEADING COACH Work Phone: [facility] Comment on above: Seborrheic keratosis ; Lentigines; Capillary angioma Start: 11-19-2024 End: 11-19-2024 ambulatory NELSY A FELTER Not Available Start: 11-14-2024 End: 11-14-2024 Patient encounter procedure Shannon Szymanskileigha DO Work Phone: [facility] Work Phone: Start: 11-14-2024 End: 11-14-2024 ambulatory Shannon Lugo Dalia DO Work Phone: [facility] Work Phone: Start: 11-12-2024 End: 11-12-2024 Postop follow up visit related to original px Dipti Acevedo DO Work Phone: [facility] Comment on above: Aftercare following surgery Start: 11-12-2024 End: 11-12-2024 ambulatory DIPTI Keys KRISTINA Not Available Start: 11-11-2024 End: 11-11-2024 ambulatory Ace Ahumada MD Facility: [facility] Start: 11-04-2024 End: 12-28-2024 ambulatory Shannon PARISH SZYMANSKILEIGHA Facility:[facility] Start: 10-28-2024 End: 10-28-2024 Postop follow up visit related to original px Dipti Acevedo DO Work Phone: [facility] Comment on above: Aftercare following surgery Start: 10-28-2024 End: 10-28-2024 ambulatory DIPTI ACEVEDO Not Available Start: 10-28-2024 ambulatory PricilaReno PARISH SZYMANSKIJEROMETOMASA Richard ty:[facility] Start: 10-24-2024 End: 10-24-2024 Admission to same day surgery center Shannon Gómez DO Work Phone: [facility] [place] Start: 10-24-2024 End: 10-24-2024 ambulatory Dipti Keys Kristina Facility:[facility] Start: 10-23-2024 End: 10-23-2024 Office outpatient visit 40 minutes Radha Cardenas MD Work Phone: Gastroenterology and Hepatology [facility] Comment on above: Chronic diarrhea (Pr imary Dx); Chronic abdominal pain; Bloating; Inadequate oral intake; [place] grade D esophagitis; Gastroparesis Start: 10-23-2024 ambulatory Shannon PARISH SZYMANSKIJEROMETOMASA Richard ty:[facility] Start: 10-15-2024 End: 10-15-2024 Office outpatient visit 25 minutes Dipti Acevedo DO Work Phone: [facility] Comment on above: PCB (post coital ble eding); Granulation tissue; Hymen abnormality Start: 10-15-2024 End: 10-15-2024 ambulatory DIPTI ACEVEDO Not Available Start: 10-14-2024 End: 10-14-2024 Patient encounter procedure Shannon Gómez DO Work Phone: [facility] Work Phone: Start: 10-10-2024 End: 10-10-2024 Patient encounter procedure Shannon Gómez DO Work Phone: [facility] [address] Closed Work Phone: Start: 10-10-2024 End: 10-10-2024 ambulatory Anibal N Bial[place]i Facility:[facility] Start: 10-09-2024 End: 10-09-2024 ambulatory Anibal N [place] Facility:[facility] Start: 10-09-2024 Non-patient / Non-visit Shannon Gómez DO Work Phone: [facility] Work Phone: Start: 09-27-2024 End: 09-27-2024 Office outpatient visit 15 minutes Dipti Acevedo DO Work Phone: [facility] Comment on above: PCB (post coital ble eding) (Primary Dx); Granulation tissue Start: 09-27-2024 End: 09-27-2024 ambulatory DIPTI ACEVEDO Not Available Start: 09-26-2024 End: 09-26-2024 Office outpatient visit 15 minutes Ron King NEGATIVE TURNER Work Phone: [facility] Comment on above: Degenerative disc di sease, cervical (Primary Dx) Start: 09-26-2024 End: 09-27-2024 ambulatory RON KING Not Available Start: 09-24-2024 End: 09-24-2024 Office outpatient visit 15 minutes Dipti Acevedo DO Work Phone: [facility] Comment on above: Granulation tissue; Hymen abnormality Start: 09-24-2024 End: 09-24-2024 ambulatory DIPTI ACEVEDO Not Available Start: 09-16-2024 End: 09-16-2024 ambulatory [facility] Work Phone: Start: 09-16-2024 End: 09-16-2024 Patient encounter procedure [facility] Work Phone: Start: 09-04-2024 End: 09-04-2024 Office outpatient visit 15 minutes Ron King NEGATIVE TURNER Work Phone: [facility] Comment on above: Anxiety (Primary Dx) Urinary frequency; Urinary urgency; Burning with urination; Erythema; Chronic vulvitis; Night sweats Start: 09-04-2024 End: 09-04-2024 ambulatory RON KING Not Available Start: 08-27-2024 End: 08-27-2024 ambulatory ELICEO GÓMEZ Not Available Start: 08-26-2024 ambulatory NA Facility:[facility] Start: 08-07-2024 End: 08-07-2024 Office outpatient visit 40 minutes Radha Cardenas MD Work Phone: Gastroenterology and Hepatology [facility] Comment on above: Chronic abdominal pa in (Primary Dx); Avoidant-restrictive food intake disorder (ARFID); Bloating; Gastroparesis Start: 08-07-2024 ambulatory NA LI Facility:[facility] Start: 08-05-2024 End: 08-05-2024 ambulatory Ace Ahumada MD Facility:[facility] Start: 08-01-2024 End: 08-01-2024 Office outpatient visit 15 minutes Eliceo Gómez DO Work Phone: [facility] Comment on above: Oral candidiasis (Pr imary Dx); Tongue pain Start: 08-01-2024 End: 08-01-2024 ambulatory ELICEO GÓMEZ Not Available Start: 07-26-2024 End: 07-26-2024 ambulatory [facility] Start: 07-22-2024 End: 07-22-2024 ambulatory Ace Ahumada MD Facility:[facility] Start: 07-15-2024 End: 07-15-2024 ambulatory ELICEO GÓMEZ Not Available Start: 07-11-2024 End: 07-11-2024 Bamboo flowsheet Eliceo Gómez DO Work Phone: [facility] Start: 07-11-2024 End: 07-11-2024 Bamboo flowsheet Eliceo Gómez DO Work Phone: [facility] Start: 07-11-2024 End: 07-11-2024 ambulatory ELICEO GÓMEZ Not Available Start: 07-11-2024 End: 07-11-2024 Office outpatient visit 15 minutes Eliceo Gómez DO Work Phone: [facility] Comment on above: Soft tissue mass (Pr imary Dx); Gastro-esophageal reflux disease without esophagitis; Gastroparesis; Mild intermittent asthma, unspecified whether complicated ([facility]) Start: 07-01-2024 End: 07-01-2024 ambulatory Ace Ahumada MD Facility: [facility] Start: 06-27-2024 End: 06-27-2024 Bamboo flowsheet Sidney Amezquita DPM Work Phone: [facility] Start: 06-27-2024 End: 06-27-2024 Bamboo flowsheet Sidney Amezquita DPM Work Phone: [facility] Start: 06-27-2024 End: 06-27-2024 Patient encounter procedure Sidney Amezquita DPM Work Phone: [facility] Comment on above: Peroneal tendinitis of right lower extremity (Primary Dx); Bilateral foot pain; Exostosis of bone of foot Start: 06-27-2024 End: 06-27-2024 ambulatory SIDNEY AMEZQUITA Not Available Start: 06-17-2024 End: 06-17-2024 ambulatory Ace Ahumada MD Facility:[facility] Start: 06-14-2024 End: 06-14-2024 ambulatory CARMEN CRUZ Not Available Start: 06-12-2024 Refill Isra S Clin adele DO Work Phone: Gastroenterology Comment on above: Refill Request Start: 06-12-2024 End: 06-12-2024 ambulatory DIPTI ACEVEDO Not Available Start: 06-12-2024 End: 06-12-2024 ambulatory RON KING Not Available Start: 06-03-2024 End: 06-03-2024 ambulatory CARMEN CRUZ Not Available Start: 05-27-2024 End: 05-27-2024 ambulatory DO Shannon Gómez Work Phone: [facility] Work Phone: Start: 05-27-2024 End: 05-27-2024 Departed Referred DO Shannon Gómez Work Phone: [facility] Start: 05-20-2024 End: 05-20-2024 ambulatory DIPTI Keys KRISTINA Not Available Start: 05-14-2024 End: 05-15-2024 Refill Ta-Ramya Thomas Chavira [facility] Comment on above: Other migraine witho ut status migrainosus, not intractable (Primary Dx) Start: 05-13-2024 End: 05-13-2024 ambulatory Ace Ahumada MD Facility:[facility] Start: 05-06-2024 End: 05-06-2024 ambulatory NELSY STALLINGSTONIA Not Available Start: 05-02-2024 End: 05-02-2024 ambulatory ELICEO GÓMEZ Not Available Start: 04-30-2024 End: 04-30-2024 Patient encounter procedure DO Shannon Gómez Work Phone: [facility] [address] Work Phone: Start: 04-30-2024 End: 04-30-2024 ambulatory DO Shannon Gómez Work Phone: [facility] Work Phone: Start: 04-28-2024 End: 04-29-2024 ambulatory Ace Ahumada MD Facility:[facility] Start: 04-28-2024 End: 04-28-2024 ambulatory [facility] Start: 04-22-2024 End: 04-22-2024 ambulatory Ace Ahumada MD Facility: [facility] Start: 04-15-2024 End: 04-15-2024 ambulatory SIDNEY AMEZQUITA Not Available Start: 04-12-2024 ambulatory PADMAJA LLAMAS Facility:[facility] Start: 04-12-2024 End: 04-12-2024 Subsequent hospital visit by physician Milagros Franco MD, PhD Work Phone: [facility] Comment on above: Arrived Start: 04-03-2024 End: 04-03-2024 ambulatory [facility] Start: 03-26-2024 End: 03-26-2024 ambulatory JES MARTINEZ Not Available Start: 03-25-2024 End: 03-25-2024 ambulatory [facility] Start: 03-14-2024 End: 03-14-2024 ambulatory RON KING Not Available Start: 03-12-2024 ambulatory Flower Daniele on MARKET STALL VENDOR.CHEERLEADING COACH Work Phone: URO/Gynecology Comment on above: Estradiol vaginal cr eam Start: 03-08-2024 ambulatory SELF SELF Facility:[facility] Start: 03-06-2024 ambulatory Shannon Ramos ty:[facility] Start: 03-06-2024 ambulatory RADHA Lemos y:[facility] Start: 03-06-2024 ambulatory Shannon Ramos ty:[facility] Start: 03-04-2024 End: 03-04-2024 ambulatory Ace Ahumada MD Facility: [facility] Start: 02-27-2024 End: 02-27-2024 ambulatory FLOWER JESSICA Facility:[facility] Start: 02-27-2024 End: 02-27-2024 Patient encounter procedure Flower Jessica MARKET STALL VENDOR.CHEERLEADING COACH Work Phone: URO/Gynecology Comment on above: Post-operative state (Primary Dx); Vaginal burning Start: 02-26-2024 End: 02-26-2024 ambulatory Ace Ahumada MD Facility: [facility] Start: 02-11-2024 End: 02-11-2024 ambulatory ELICEO GÓMEZ JR Facility:[facility] Start: 02-11-2024 End: 02-11-2024 ambulatory Lissa Vivek MARKET STALL VENDOR.CHEERLEADING COACH Work Phone: Telemedicine Comment on above: Procedure and treatm ent not carried out for other reasons (Primary Dx) Start: 02-11-2024 End: 02-11-2024 Telemedicine consultation with patient Lissa Doyle MARKET STALL VENDOR.CHEERLEADING COACH Work Phone: [facility] Start: 02-09-2024 End: 02-09-2024 ambulatory Pam Wang MD Work Phone: URO/Gynecology Comment on above: Yeast infection Start: 02-07-2024 End: 02-07-2024 ambulatory [facility] Start: 01-27-2024 Telephone encounter Radha florez MD Work Phone: Gynecology Start: 01-26-2024 End: 01-26-2024 ambulatory ELICEO GÓMEZ JR Facility:[facility] Start: 01-25-2024 End: 01-25-2024 Telemedicine consultation with patient Nurse Restaurant General Manager Work Phone: [facility] Start: 01-25-2024 Encounter for other preprocedural examination PAM WANG [facility] Start: 01-25-2024 End: 01-25-2024 [facility] Work Phone: [facility] Start: 01-25-2024 End: 01-25-2024 ambulatory Nurse Restaurant General Manager Work Phone: Pre Anesthesia Comment on above: Pre-op examination ( Primary Dx); Obesity (BMI 30.0-34.9); Mild persistent asthma without complication; CHUCKIE (obstructive sleep apnea); Primary hypertension; Gastroparesis; Gastroesophageal reflux disease, unspecified whether esophagitis present Educational circumst ances (Primary Dx) Start: 01-25-2024 End: 01-25-2024 Preprocedural examination done Pac Virtual Work Phone: [facility] Work Phone: Start: 01-23-2024 End: 01-23-2024 ambulatory ELICEO GÓMEZ Not Available Start: 01-15-2024 End: 01-15-2024 ambulatory Ace Ahumada MD Facility:[facility] Start: 01-10-2024 End: 01-10-2024 ambulatory [facility] Start: 01-10-2024 End: 01-10-2024 Postop follow up visit related to original px Cullen Dawkins MD Work Phone: [facility] Comment on above: CHUCKIE (obstructive sle ep apnea) (Primary Dx) Start: 01-03-2024 End: 01-03-2024 Evaluation and management of inpatient [facility] Start: 01-02-2024 End: 01-03-2024 Evaluation and management of inpatient [facility] Start: 01-02-2024 End: 01-02-2024 Evaluation and management of inpatient [facility] Start: 12-27-2023 Telephone encounter Cullen glover MD Work Phone: [facility] Start: 12-25-2023 ambulatory Pam rios MD Work Phone: URO/Gynecology Comment on above: Having another stimu lator besides bladder Start: 12-25-2023 Telephone encounter Pam simon MD Work Phone: Gynecology Comment on above: Question Start: 12-25-2023 End: 12-25-2023 ambulatory Ace Ahumada MD Facility:[facility] Start: 12-20-2023 End: 12-20-2023 ambulatory [facility] Start: 12-20-2023 Encounter for other preprocedural examination [facility] Start: 12-20-2023 End: 12-20-2023 Patient encounter procedure [facility] Pat Provider [facility] Comment on above: Pre-op testing (Prim tomer Dx) Start: 12-20-2023 End: 12-20-2023 Patient encounter status [facility] Start: 12-11-2023 End: 12-11-2023 ambulatory Ace Ahumada MD Facility:[facility] Start: 11-27-2023 End: 11-27-2023 ambulatory Beto Snyder Other [facility] Other Start: 11-27-2023 Telephone encounter [facility] Start: 11-23-2023 End: 11-23-2023 ambulatory DO Ortega Parish Szymanskileigha Work Phone: [facility] Work Phone: Start: 11-23-2023 End: 11-23-2023 Patient encounter procedure DO Shannon Lugo Stephonleigha Work Phone: [facility] Work Phone: Start: 11-21-2023 End: 11-21-2023 ambulatory ELICEO GÓMEZ JR Facility:[facility] Start: 11-16-2023 End: 11-16-2023 ambulatory Beto Snyder Other [facility] Other Start: 11-16-2023 Telephone encounter [facility] Start: 11-08-2023 Telephone encounter Emily Zamora [facility] Start: 11-03-2023 Orders Only Pauline Christensen MD Work Phone: [facility] Start: 10-26-2023 End: 10-26-2023 ambulatory Beto Snyder Other [facility] Other Start: 10-26-2023 Telephone encounter [facility] Start: 10-23-2023 End: 10-23-2023 ambulatory PAULINE CHRISTESNEN [facility] Start: 10-10-2023 End: 10-10-2023 ambulatory ELICEO GÓMEZ JR Facility:[facility] Start: 10-06-2023 End: 10-06-2023 ambulatory Beto [facility] [email or web address] Other Start: 10-06-2023 Telephone encounter [facility] Start: 09-27-2023 End: 09-27-2023 ambulatory Pam Wang MD Work Phone: Urogynecology Comment on above: Worsening Start: 09-27-2023 Refill Doris Arias MARKET STALL VENDOR.CHEERLEADING COACH Work Phone (unformatted): [phone] Urogynecology Comment on above: Med Change Request Start: 09-11-2023 End: 09-11-2023 ambulatory PAM WANG Facility:[facility] Start: 08-12-2023 End: 08-12-2023 Emergency department patient visit LEX SALMON [facility] Start: 08-12-2023 End: 08-12-2023 Emergency department patient visit Lex Salmon MD Work Phone: [facility] Comment on above: Upper abdominal pain (Primary Dx) Start: 08-09-2023 ambulatory Mary Obrien MD Work Phone: Colorectal Surgery Comment on above: Response Start: 08-07-2023 End: 08-07-2023 ambulatory Mary Obrien MD Work Phone: Colorectal Surgery Comment on above: Colon Start: 08-01-[address] Eliceo Gómez Jr Facility: Start: 07-31-2023 End: 07-31-2023 ambulatory ELICEO GÓMEZ JR Facility:[facility] Start: 07-31-2023 End: 07-31-2023 Patient encounter procedure Nelsy Chávez APRN.CHEERLEADING COACH Work Phone: URO/Gynecology Comment on above: Incomplete bladder e mptying (Primary Dx); Constipation, unspecified constipation type; Urinary urgency; Urinary frequency; Nocturia Start: 07-17-2023 (Procedure) Win Snyder [facility] Start: 07-17-2023 End: 07-17-2023 ambulatory Beto Snyder [facility] [email or web address] Other Start: 07-12-2023 End: 07-12-2023 ambulatory Beto Snyder Other [facility] [email or web address] Other Start: 07-12-2023 Telephone encounter [facility] Start: 06-13-2023 Office consultation new/estab patient 60 min Eliceo Gómez Work Phone: [facility] [address] DO Work Phone: Start: 06-13-[address] Dipti Anaya Facility: Start: 06-07-[address] Dipti Anaya Facility:[id number] Start: 06-05-2023 End: 06-05-2023 Emergency department patient visit DO Shannon Gómez Work Phone: [facility] Work Phone: Start: 05-28-2023 ambulatory Pam rios MD Work Phone: URO/Gynecology Comment on above: Problems with urinat ing Start: 04-26-2023 End: 04-26-2023 ambulatory Beto Pradeeptonia Other [facility] [email or web address] Other Start: 04-26-2023 Office outpatient vi sit 25 minutes Beto Snyder [facility] [place] Start: 04-11-2023 Refill Isra S Clin e DO Work Phone: Gastroenterology Comment on above: Refill Request Start: 04-04-2023 End: 04-05-[address] Pricila GÓMEZ Facility:[facility] Start: 03-19-2023 ambulatory Isra S Clin e DO Work Phone: Gastroenterology Comment on above: Stool sample results Start: 03-17-2023 End: 03-17-2023 ambulatory DO Shannon Gómez Work Phone: [facility] Work Phone: Start: 03-17-2023 End: 03-17-2023 Discharged Recurring DO Shannon Gómez Work Phone: [facility] [place] Work Phone: Start: 03-15-2023 Orders Only Isra Ila rios DO Work Phone: Gastroenterology Comment on above: Diarrhea due to power bsorption (Primary Dx) What lab? Start: 03-06-2023 End: 03-06-[address] Pricila GÓMEZ Facility:[facility] Start: 02-21-2023 End: 02-22-[address] Pricila GÓMEZ Facility:[facility] Start: 02-19-2023 End: 02-19-[address] Pricila GÓMEZ Facility:[facility] Start: 01-31-2023 End: 02-01-2023 ambulatory NIECY DURON Facility:[facility] Start: 01-27-2023 End: 01-27-[address] Pricila GÓMEZ Facility:[facility] Start: 01-20-2023 ambulatory Winston chand DO Work Phone: General Surgery Comment on above: Clarification Start: 01-19-2023 ambulatory Winston chand DO Work Phone: General Surgery Comment on above: General Start: 01-16-2023 Telephone encounter Mounika farrell PA-C Work Phone: Pre Anesthesia Comment on above: Appointment (Pt has not arrived for her 1 pm appointment) Start: 01-16-2023 End: 01-16-2023 Admission to establishment [facility] Start: 01-16-2023 End: 01-16-2023 ambulatory Pac Virtual [...] patient Winston Hannah DO Work Phone: [facility] Start: 12-28-2022 ambulatory Yoni Tuttle MD Work [...] with patient Winston Hannah DO Work Phone: [facility] Start: 12-21-2022 End: 12-22-2022 ambulatory SAED Keys [facility] Facility: Start: 12-15-2022 End: 12-15-2022 Manual pelvic examination Mary Obrien MD Work Phone: Colorectal Surgery Comment on above: Colonic inertia (Phoebe unique Dx); Pelvic floor dysfunction; Nausea; Gastroparesis Start: 12-15-2022 End: 12-15-2022 Telemedicine consultation with patient Mary Obrien MD Work Phone: [facility] Start: 12-14-2022 ambulatory Yoni Tuttle MD Work [...] ambulatory Winston Zoya chand DO Work Phone: [facility] Start: 12-02-2022 ambulatory Isra S Clin e DO Work Phone: [facility] Start: 12-02-2022 Telephone encounter Yoni Tuttle MD Work Phone: Neurology Comment on above: Returning Nurse Call Start: 12-01-2022 End: 12-02-2022 ambulatory NIECY DURON Facility: Start: 11-30-2022 End: 11-30-2022 ambulatory Isra S Masters DO Work Phone: Gastroenterology Comment on above: Chronic idiopathic c onstipation (Primary Dx); Nausea Start: 11-30-2022 End: 11-30-2022 Telemedicine consultation with patient Isra S Masters DO Work Phone: [facility] Start: 11-24-2022 ambulatory Isra S Clin [...] Start: 11-21-2022 End: 11-21-2022 Admission to [facility] 2 Work Phone: [facility] Start: 11-21-2022 End: 11-21-2022 Preprocedural examination done [facility] 2 Work Phone: Pre Anesthesia Start: 11-17-2022 ambulatory Annmarie Gillespie RN Gastroe nterology Start: 11-17-2022 Patient encounter procedure Annmarie Gillespie RN [facility] Start: 11-17-2022 End: 11-17-2022 Subsequent hospital visit by physician Capsule Work Phone: Gastroenterology Start: 11-16-2022 ambulatory Yoni Tuttle MD Work Phone: NEUROLOGY Comment on above: The delay Start: 11-15-2022 ambulatory Yoni Tuttle MD Work Phone: NEUROLOGY Comment on above: Labs Start: 11-14-2022 End: 11-15-2022 ambulatory NIECY DURON Facility:H1 Start: 11-10-2022 Telephone encounter Annmarie Gillespie RNdie cutter diamond Comment on above: Preparations For Pro cedures [...] 10-23-2022 Encounter for preprocedural laboratory examination SADE Keys [facility]ENTEROBERTA [facility] Start: 10-20-2022 End: 10-20-2022 ambulatory Isra Thorpe [...] ) Start: 10-17-2022 End: 10-18-[address] Pricila GÓMEZ Facility:H1 Start: 10-14-2022 End: 10-14-2022 ambulatory DO Shannon Gómez Work Phone: [facility] Work Phone: Start: 10-14-2022 End: 10-14-2022 Discharged Recurring DO Shannon Gómez Work Phone: [facility] [place] Work Phone: Start: 10-13-2022 End: 10-14-2022 ambulatory SADE FELIX Facility:H1 Start: 10-13-2022 End: 10-14-2022 Encounter for preprocedural laboratory examination SADE FELIX Facility:H1 Start: 10-11-2022 End: 10-11-2022 ambulatory Beto Cartagena Other [facility] Other Start: 10-11-2022 Telephone encounter Beto Cartagena [facility] Start: 10-11-2022 End: 10-11-2022 Patient encounter procedure Isra Masters DO Work Phone: Gastroenterology Comment on above: Gas bloat syndrome ( Primary Dx); Chronic idiopathic constipation; Gastroparesis Start: 10-10-2022 End: 10-10-2022 ambulatory Beto Cartagena Other [facility] Other Start: 10-10-2022 Office outpatient ne w 30 minutes Beto Cartagena [facility] [place] [facility] Start: 10-06-2022 End: 10-06-2022 ambulatory Beto Snyder Other [facility] Other Start: 10-06-2022 Patient encounter procedure Beto Snyder [facility] [place] Start: 09-28-2022 Encounter for other preprocedural examination [facility] Start: 09-28-2022 Encounter for preprocedural cardiovascular examination [facility] Start: 09-26-2022 End: 09-27-2022 ambulatory [facility] Facility: Start: 09-22-2022 Office outpatient vi sit 25 minutes Beto Snyder [facility] [place] Start: 09-22-2022 Telephone encounter Beto Mcnulty [facility] [place] Start: 09-22-2022 End: 09-22-2022 ambulatory DO Shannon Gómez Work Phone: [facility] Other Start: 09-22-2022 End: 09-22-2022 Patient encounter procedure DO Shannon Gómez Work Phone: [facility] [place] [facility] Start: 09-14-2022 End: 09-14-2022 ambulatory Eliceo Gómez Other [facility] Other Start: 09-14-2022 Encounter by sierra Gómez [facility] [place] Start: 09-14-2022 Office outpatient vi sit 15 minutes Beto Snyder [facility] [place] Start: 09-14-2022 Telephone encounter Beto BATES [facility] Start: 08-16-2022 ambulatory Mary Obrien MD Work Phone: Colorectal Surgery Comment on above: CT results Ct scan result quest ion Start: 08-16-2022 E-mail encounter kendra m caregiver Mary Obrien MD Work Phone: [facility] Start: 08-12-2022 End: 08-12-2022 Subsequent hospital visit by physician Ct Prep [facility] Start: 07-27-2022 End: 07-28-2022 ambulatory [facility] Facility: Start: 07-26-2022 Telephone encounter Isra Masters DO Work Phone: Gastroenterology Comment on above: Medication Problem; Medication 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 ([place] for Dexlansoprazole) Start: 07-26-2022 End: 07-26-2022 Patient encounter procedure Mary Obrien MD Work Phone: Colorectal Surgery Comment on above: Follow-up examinatio n after colorectal surgery (Primary Dx); Periumbilical abdominal pain; Outlet dysfunction constipation; Colonic inertia Start: 06-08-2022 (Procedure) Short Beto Snyder [facility] Start: 06-08-2022 End: 06-08-2022 ambulatory Beto Snyder Other [facility] Other Start: 05-30-2022 Refill Mary Obrien MD Work Phone: Colorectal Surgery Comment on above: Refill Request Start: 05-26-2022 End: 05-26-2022 ambulatory Beto Snyder Other [facility] Other Start: 05-26-2022 Office outpatient vi sit 25 minutes Beto Snyder [facility] [place] Start: 05-12-2022 Office consultation new/estab patient 60 min Eliceo Gómez Work Phone: [facility] 250 DO Work Phone: Start: 05-10-2022 End: 05-10-2022 ambulatory Allison Arita Other [facility] Other Start: 05-10-2022 Office outpatient vi sit 15 minutes Allison Arita [facility] Start: 05-03-2022 Telephone encounter Mary brewer MD Work Phone: Colorectal Surgery Comment on above: Reports Analyst - O ther Start: 04-26-2022 Telephone encounter Mary brewer MD Work Phone: Colorectal Surgery Comment on above: Patient Question Start: 04-22-2022 End: 04-22-2022 Patient encounter procedure Jessi Sheets MARKET STALL VENDOR.CHEERLEADING COACH Work Phone: Colorectal Surgery Comment on above: Follow-up examinatio n after colorectal surgery (Primary Dx); Pelvic floor dysfunction Start: 04-17-2022 End: 04-17-2022 ambulatory CHASITY FREIRE . Facility: Start: 04-07-2022 Telephone encounter Rachael Keys [facility] Department Comment on above: PostOp Follow-up Start: 03-22-2022 Telephone encounter Mary brewer MD Work Phone: Colorectal Surgery Comment on above: Patient Question Start: 03-15-2022 End: 03-15-2022 ambulatory Beto Snyder Other [facility] Other Start: 03-15-2022 Office outpatient vi sit 15 minutes Beto Snyder [facility] [place] Start: 03-15-2022 Telephone encounter Mary brewer MD Work Phone: Colorectal Surgery Comment on above: Reports Analyst - O ther Medication Preauthor ization (PA for Dexilant renewal) Outside Labs Results Start: 03-15-2022 End: 03-15-2022 Patient encounter procedure Isra Masters DO Work Phone: Gastroenterology Comment on above: Gastroesophageal ref lux disease, unspecified whether esophagitis present; Chronic idiopathic constipation Start: 03-14-2022 End: 03-14-2022 [place] [id number] Work Phone: Pre Anesthesia Comment on above: Preop examination (P rimary Dx); Attention to ileostomy (HCC); Primary hypertension; Gastroparesis; Gastroesophageal reflux disease, unspecified whether esophagitis present; Mild persistent asthma without complication; Bipolar 1 disorder (HCC); Obesity (BMI 30.0-34.9) Start: 03-14-2022 End: 03-14-2022 Preprocedural examination done [facility] 4 Work Phone: Pre Anesthesia Start: 02-28-2022 Telephone encounter Isra Masters DO Work Phone: Gastroenterology Comment on above: Appointment (for scr ipt refill) Start: 02-18-2022 End: 02-18-2022 Patient encounter procedure Nelsy Chávez DANN.CHEERLEADING COACH Work Phone: URO/Gynecology Comment on above: Postoperative state (Primary Dx) Start: 02-11-2022 End: 02-11-2022 ambulatory Flaca Bartholomew PT Work Phone: [facility] Start: 02-11-2022 End: 02-11-2022 Follow-up encounter Flaca Bartholomew PT Work Phone: [facility] Physical Therapy Comment on above: Pelvic floor dysfunc tion (Primary Dx); Lack of coordination; Follow-up examination after colorectal surgery Start: 02-09-2022 (Procedure) Win Snyder [facility] Start: 02-09-2022 End: 02-09-2022 ambulatory Beto Snyder [facility] [email or web address] Other Start: 02-08-2022 End: 02-08-2022 Patient encounter procedure Mary Obrien MD Work Phone: Colorectal Surgery Comment on above: Follow-up examinatio n after colorectal surgery (Primary Dx) Post-operative state (Primary Dx); Yeast infection of the skin Start: 02-01-2022 Refill Isra rios DO Work Phone: Gastroenterology Comment on above: Refill Request (dexl ansoprazole) Start: 01-31-2022 End: 01-31-2022 ambulatory Newton Woodward PT Work Phone: [facility] Start: 01-31-2022 End: 01-31-2022 Follow-up encounter Newton Woodward PT Work Phone: [facility] Physical Therapy Comment on above: Pelvic floor dysfunc tion (Primary Dx); Lack of coordination; Follow-up examination after colorectal surgery Start: 11-25-2021 End: 11-25-2021 ambulatory Beto Snyder Other [facility] Other Start: 11-25-2021 Office outpatient vi sit 25 minutes Beto Snyder [facility] [place] Start: 11-17-2021 End: 11-18-2021 [facility] Start: 10-20-2021 End: 10-20-2021 ambulatory Beto Snyder Other [facility] Other Start: 10-20-2021 Office outpatient vi sit 25 minutes Beto Snyder [facility] [place] Start: 10-13-2021 (Procedure) Short Beto Snyder [facility] Start: 10-13-2021 End: 10-13-2021 ambulatory Beto Snyder Other [facility] Other Start: 09-06-2021 Office outpatient vi sit 25 minutes Beto Snyder [facility] [place] Start: 08-19-2021 Office outpatient vi sit 15 minutes Erica Kingston [facility] Start: 08-13-2021 Office outpatient vi sit 15 minutes Tita Daugherty [facility] Start: 08-12-2021 Office outpatient vi sit 25 minutes Beto Snyder [facility] [place] Start: 07-28-2021 Office outpatient vi sit 25 minutes Beto Snyder [facility] [place] Start: 12-25-2020 End: 12-25-2020 Subsequent hospital visit by physician Brianna Connors 1 Work Phone: Radiology Comment on above: Post-operative state [Z98.890] Start: 09-29-2020 End: 09-29-2020 Subsequent hospital visit by physician Brianna Connors 1 Work Phone: Radiology Comment on above: Pain [R52] Procedures Date Procedure Procedure Detail Performing Clinician Start: 01-03-2025 XR FOOT RT MIN 3V Gener ic External Data Provider Start: 11-20-2024 Plain X-ray of bilat eral shoulders Shannon Gómez DO Work Phone: Start: 11-14-2024 Radionuclide gastric emptying study Shannon Gómez DO Work Phone: Start: 11-04-2024 Follow-up visit Follow-up MERISSA DELAROSA Start: 10-24-2024 Colposcopy of vulva Shannon Gómez DO Work Phone: Start: 10-10-2024 XR pre/post mri xray Shannon Gómez DO Work Phone: Start: 10-10-2024 MRI of cervical spin e without contrast Shannon Gómez DO Work Phone: Start: 10-10-2024 MR lumbar spine wo con Shannon Gómez DO Work Phone: Start: 09-04-2024 Urnls dip stick/tabl et rgnt non-auto w/o micrscp Dipti Keys Kristina DO Work Phone: Start: 07-26-2024 Follow-up visit Follow-up PAULINE HOUSTON Start: 04-30-2024 MRI of right ankle DO Pricila Gómez Work Phone: Start: 04-12-2024 DIAGNOSTIC UPPER ENDOSCOPY Padmaja Llamas MD, PhD Work Phone: Start: 02-27-2024 BACTERIAL VAGINOSIS NAAT Flower Lopez MARKET STALL VENDOR.CHEERLEADING COACH Work Phone: Start: 02-27-2024 Iadna trichomonas vaginalis amplified probe tech Flower Lopez MARKET STALL VENDOR.CHEERLEADING COACH Work Phone: Start: 02-27-2024 Urnls dip stick/tabl et rgnt auto w/o microscopy Flower Lopez MARKET STALL VENDOR.CHEERLEADING COACH Work Phone: Start: 12-20-2023 Basic metabolic pane l calcium total Caroline Brewer MD Work Phone: Start: 11-23-2023 Radionuclide imaging of liver and/or biliary tract using radioactive isotope Shannon Gómez Work Phone: Start: 11-01-2023 Lipid 1996 panel - S jay or Plasma Pam Wang MD Work Phone: Start: 10-31-2023 Mammography Sidney Amezquita DPM Work Phone: Start: 10-23-2023 Follow-up visit Follow-up PAULINE CHRISTENSEN Start: 10-23-2023 Adult depression scr eening assessment Pauline Christensen MD Work Phone: Start: 08-12-2023 Assay of troponin quantitative Lev Ritter APRN CHEERLEADING COACH Work Phone: Start: 08-12-2023 Ct abdomen & pelvis w/contrast material Lev Ritter APRN CHEERLEADING COACH Work Phone: Start: 08-12-2023 Urnls dip stick/tabl et reagent auto microscopy Lex Salmon MD Work Phone: Start: 08-12-2023 Basic metabolic pane l calcium total Lex Salmon MD Work Phone: Start: 08-12-2023 DARK GREEN TOP Lex buitrago MD Work Phone: Start: 08-12-2023 GOLD TOP Lex bacon MD Work Phone: Start: 08-12-2023 Hepatic function panel Lev Ritter APRN CHEERLEADING COACH Work Phone: Start: 08-12-2023 LIGHT BLUE TOP [...] rgnt auto w/o microscopy Nelsy Chávez MARKET STALL VENDOR.CHEERLEADING COACH Work Phone: Start: 06-05-2023 Plain chest X-ray DO Shannon Gómez Work Phone: Start: 05-23-2023 H/O: artificial joint Presence of right artificial ankle joint Sidney Amezquita DPM Work Phone: Start: 03-02-2023 Aerobic microbial culture DO Shannon Gómez Work Phone: Start: 12-26-2022 Radiologic exam esop hagus single contrast study Winston Keys Brielle DO Work Phone: Start: 09-22-2022 Plain X-ray of bilat eral shoulders DO Shannon Gómez Work Phone: Start: 09-22-2022 X-ray of both knees DO Shannon Gómez Work Phone: Start: 09-14-2022 Mammography Lex rincon MD Work Phone: Start: 03-02-2022 Lipid 1996 panel - S jay or Plasma Nelsy Chávez MARKET STALL VENDOR.CHEERLEADING COACH Work Phone: Start: 02-08-2022 Urnls dip stick/tabl et rgnt auto w/o microscopy Magali Mitchell MARKET STALL VENDOR.CHEERLEADING COACH Work Phone: Start: 12-16-2021 Antibody screen Comment on above: Performed By: #### T SCR30 ####[place] [phone] Start: 10-15-2021 Antibody screen Comment on above: Performed By: #### T SCR30 ####[place] [phone] Start: 06-28-2021 Mammography Mary brewer MD Work Phone: Start: 02-18-2021 H/O: surgery S/P nasal septoplasty Mannie patel Gurpreet DPM Work Phone: Start: 02-18-2021 History of tonsillectomy S/P tonsill ectomy Sidney Gurpreet DPM Work Phone: Start: 12-25-2020 Radex shoulder compl ete minimum [...] (2 - Td or Tdap) [facility] Start: 06-22-2030 Tetanus vaccination TETANUS [facility] Start: 06-22-2030 Urine microalbumin profile DTaP,Tdap,Td Vaccine (2 - Td or Tdap) [facility] Start: 11-01-2028 Lipid panel Lipid Screening [facility] Start: 12-05-2027 COLORECTAL CANCER SCREENING COLORECTAL CANCER SCREENING [facility] Start: 12-05-2027 Screening for malignant neoplasm of colon [facility] Start: 12-05-2027 SIGMOIDOSCOPY SIGMOIDOSCOPY [facility] Start: 03-02-2027 Lipid 1996 panel - Serum or Plasma Lipid Screening [facility] Start: 03-02-2027 LIPID SCREEN LIPID SCREEN [facility] Start: 12-20-2026 Diabetes Screening Diabetes Screening [facility] Start: 08-12-2026 Diabetes Screening Diabetes Screening [facility] Start: 11-20-2025 End: 11-20-2025 Patient encounter procedure 11/20/2025 8:30 AM EST Office Visit [facility] [address] [place] [phone] Nelsy Snyder APRN-KWESI [address] [place] [address] [facility] Start: 04-05-2025 DIABETES SCREEN DIABETES SCREEN [facility] Start: 04-05-2025 Diabetes Screening Diabetes Screening [facility] Start: 03-14-2025 DIABETES SCREEN DIABETES SCREEN [facility] Start: 03-14-2025 Medicare Annual Wellness (AWV) Medicare Annual Wellness (AWV) [facility] Start: 01-20-2025 End: 01-20-2025 Patient encounter procedure 01/20/2025 1:00 PM EDT Office Visit [facility] [address] [place] [phone] Eliceo Gómez DO [address] [place] [address] Bipolar disorder, current episode depressed, moderate (CMS/HCC) [facility] 230 Comment on above: Bipolar disorder, current episode depres sed, moderate (CMS/HCC) Start: 01-09-2025 Adult BMI Screening Adult BMI Screening [facility] Start: 01-09-2025 Tobacco Screening Tobacco Screening [facility] Start: 12-26-2024 DIABETES SCREEN DIABETES SCREEN [facility] Start: 12-20-2024 Adult BMI Screening Adult BMI Screening [facility] Start: 12-20-2024 Tobacco Screening Tobacco Screening [facility] Start: 12-16-2024 Aldolase measurement [facility] Start: 12-16-2024 Hemolytic complement CH50 level [facility] Start: 12-16-2024 [facility] Start: 11-20-2024 Patient referral [facility] Work Phone: Start: 11-19-2024 End: 11-19-2024 Patient encounter procedure [facility] Comment on above: Arrived Start: 11-12-2024 End: 11-12-2024 Patient encounter procedure 11/12/2024 8:30 AM EST Office Visit [facility] [address] [place] [phone] Dipti Acevedo DO [address] [place] [address] [facility] Start: 11-11-2024 End: 11-11-2024 Patient encounter procedure 11/11/2024 9:20 AM EST Office Visit [facility] [address] [place] [phone] Nelsy Snyder, DANN-KWESI [address] [place] [address] [facility] Start: 11-04-2024 End: 11-04-2024 Telemedicine consultation with patient 11/04/2024 2:00 PM EST Telemedicine [facility] [address] [place] [phone] Merissa Delarosa, RD [address] [place] [address] [address] [place] [address] [facility] [place] Start: 11-01-2024 End: 11-01-2024 Professional / ancillary services management 11/01/2024 11:00 AM EST Ancillary Procedure [facility] [place] [address] [place] [address] [facility] [place] Start: 11-01-2024 End: 11-01-2024 Patient encounter procedure [facility] Comment on above: Aftercare following surgery Start: 10-31-2024 Screening for malignant neoplasm of breast [facility] Start: 10-28-2024 End: 10-28-2024 Telemedicine consultation with patient 10/28/2024 9:00 AM EST Telemedicine [facility] [address] [place] [address] Lissa Lou, RD [address] [place] [phone] [facility] [place] Start: 10-24-2024 [facility] Start: 10-24-2024 [facility] Start: 10-23-2024 Adult BMI Screening Adult BMI Screening [facility] Start: 10-23-2024 Depression Screening [facility]ening [facility] Start: 10-23-2024 End: 10-23-2025 FECAL FAT,QUANTITATIVE FECAL FAT,QUANTITATIVE Fluids Routine Chronic diarrhea Expected: 10/23/2024, Expires: 10/23/2025 [facility] Comment on above: Expected: 10/23/2024, Expires: Start: 10-23-2024 End: 10-23-2025 NM Stomach Views for gastric emptying W [id number] SC PO NUC GASTRIC EMPTYING Imaging Routine Bloating Gastroparesis Expected: 10/23/2024, Expires: 10/23/2025 [facility] Comment on above: Expected: 10/23/2024, Expires: Start: 10-23-2024 End: 10-23-2025 PANCREATIC ELASTASE, STOOL PANCREATIC ELASTASE, STOOL Fluids Routine Chronic diarrhea Expected: 10/23/2024, Expires: 10/23/2025 [facility] Comment on above: Expected: 10/23/2024, Expires: Start: 10-23-2024 Tobacco Screening Tobacco Screening [facility] Start: 10-10-2024 BP Controlled (<130/80) BP Controlled (<130/80) [facility] Start: 07-12-2024 End: 07-12-2024 Professional / ancillary services management 07/12/2024 1:30 PM EDT Ancillary Procedure [facility] US [address] [place] [phone] [facility] Start: 07-11-2024 End: 07-11-2025 US Soft Tissue Palpable Mass US Soft Tissue Palpable Mass Imaging Routine Soft tissue mass Expected: 07/11/2024, Expires: 07/11/2025 [facility] Work Phone: Comment on above: Expected: 07/11/2024, Expires: Start: 07-07-2024 COVID-19 VACCINE ( season) COVID-19 VACCINE () [facility] Start: 07-07-2024 Covid-19 Vaccine ( season) Covid-19 Vaccine ( season) [facility] Start: 07-07-2024 Influenza vaccination [facility] Start: 06-27-2024 End: 06-27-2024 Patient encounter procedure 06/27/2024 9:45 AM EDT Office Visit [facility] [address] [place] [phone] Sidney Amezquita DPM [address] [place] [address] Arrived [facility] Comment on above: Arrived Start: 05-31-2024 Administration of varicella zoster vaccine Zoster (Shingles) Vaccine (2 of 2) [facility] Start: 05-31-2024 Zoster vaccine hzv live for subcutaneous use ZOSTER (SHINGLES) VACCINE (2 of 2) [facility] Start: 04-18-2024 End: 04-18-2024 Patient encounter procedure 04/18/2024 1:30 PM EDT [facility] [address] [place] [phone] Pauline Christensen MD [address] [place] [address], [address], [address], [address] [place] [phone] [facility] Start: 01-10-2024 End: 01-10-2024 Patient encounter procedure 01/10/2024 12:45 PM EST Office Visit [facility] [address] [place] [address], [address] [place] [address] Cullen Dawkins MD [address] [place] [address] [address] [place] [address] [facility] Start: 01-02-2024 End: 01-02-2024 Admission to same day surgery center 01/02/2024 11:00 AM EST - 01/02/2024 3:30 PM EST Surgery [facility] Surgery [address] [place] [address] Cullen Dawkins MD [address] [place] [address] [address] [place] [address] INSERTION STIMULATOR NERVE HYPOGLOSSAL [90608 (CPT )] [facility] Surgery Comment on above: INSERTION STIMULATOR NERVE HYPOGLOSSAL [ 61363 (CPT )] Start: 01-02-2024 End: 01-02-2024 INSERTION STIMULATOR NERVE HYPOGLOSSAL INSERTION STIMULATOR NERVE HYPOGLOSSAL CHUCKIE (obstructive sleep apnea) 01/02/2024 11:00 AM EST [facility] Start: 01-02-2024 Subsequent hospital visit by physician 01/02/2024 11:00 AM EST Hospital Encounter [facility] Surgery [address] [place] [address] Cullen Dawkins MD [address] [place] [address] [address] [place] [address] [facility] - Surgery Start: 11-06-2023 Behavioral Health Screening Behavioral Health Screening [facility] Start: 11-06-2023 Depression Assessment Depression Assessment [facility] Start: 09-27-2023 End: 12-27-2023 Bacteria identified in Urine by Culture URINE CULTURE Microbiology Routine Burning with urination Expected: 09/27/2023, Expires: 12/27/2023 [facility] Work Phone: Comment on above: Expected: 09/27/2023, Expires: Start: 09-14-2023 Screening for malignant neoplasm of breast [facility] Start: 08-01-2023 FUV, Provider: Dipti Anaya, Status: Pen, Time: 11:00 AM FUV, Provider: Dipti Anaya, Status: Pen, Time: 11:00 AM [facility] [facility] DO Work Phone: Start: 07-07-2023 Covid-19 Vaccine ( season) Covid-19 Vaccine ( season) [facility] Start: 07-07-2023 Influenza vaccination [facility] Start: 07-07-2023 Influenza vaccination given INFLUENZA VACCINE (#1) [facility] Start: 06-05-2023 [facility] Start: 04-22-2023 BP CONTROLLED (<130/80) BP CONTROLLED (<130/80) [facility] Start: 03-14-2023 BP CONTROLLED (<130/80) BP CONTROLLED (<130/80) [facility] Start: 02-18-2023 BP CONTROLLED (<130/80) BP CONTROLLED (<130/80) [facility] Start: 02-08-2023 BP CONTROLLED (<130/80) BP CONTROLLED (<130/80) [facility] Start: 01-18-2023 BP CONTROLLED (<130/80) BP CONTROLLED (<130/80) [facility] Start: 11-06-2022 DEPRESSION ASSESSMENT DEPRESSION ASSESSMENT [facility] Start: 09-22-2022 [facility] Start: 08-02-2022 End: 08-25-2023 Ct abdomen & pelvis w/contrast material CT ABD/PEL W IVCON Radiology Routine Periumbilical abdominal pain Expected: 08/02/2022, Expires: 08/25/2023 [facility] Work Phone: Comment on above: Expected: 08/02/2022, Expires: 3 Start: 07-07-2022 Influenza vaccination [facility] Start: 06-28-2022 Mammography [facility] Start: 2022 Administration of varicella zoster vaccine Zoster (Shingles) Vaccine (1 of 2) [facility] Start: 2022 COVID-19 VACCINE (4 - Booster for Pfizer series) COVID-19 VACCINE (4 - Booster for Pfizer series) [facility] Start: 2022 SHINGRIX VACCINE (1 of 2) SHINGRIX VACCINE (1 of 2) [facility] Start: 2022 Zoster vaccine hzv live for subcutaneous use ZOSTER (SHINGLES) VACCINE (1 of 2) [facility] Start: 04-01-2022 End: 06-01-2022 CBC W Auto Differential panel - Blood CBC + DIFF Lab Routine Follow-up examination after colorectal surgery Expected: 04/01/2022, Expires: 06/01/2022 [facility] Work Phone: Comment on above: Expected: 04/01/2022, Expires: 2 Start: 04-01-2022 End: 06-01-2022 Comprehensive metabolic 2000 panel - Serum or Plasma COMP METABOLIC PANEL Lab Routine Follow-up examination after colorectal surgery Expected: 04/01/2022, Expires: 06/01/2022 [facility] Work Phone: Comment on above: Expected: 04/01/2022, Expires: 2 Start: 04-01-2022 End: 06-01-2022 TYPE AND SCREEN,30 DAY TYPE AND SCREEN,30 DAY Blood Bank Routine Follow-up examination after colorectal surgery Expected: 04/01/2022, Expires: 06/01/2022 [facility] Work Phone: Comment on above: Expected: 04/01/2022, Expires: 2 Start: 01-19-2022 COVID-19 VACCINE (4 - Booster for Pfizer series) COVID-19 VACCINE (4 - Booster for Pfizer series) [facility] Start: 01-19-2022 COVID-19 VACCINE (4 - Pfizer series) COVID-19 VACCINE (4 - Pfizer series) [facility] Start: 11-06-2021 DEPRESSION ASSESSMENT DEPRESSION ASSESSMENT [facility] Start: 07-07-2021 Influenza vaccination INFLUENZA (#1) [facility] Start: 03-24-2021 Screening for malignant neoplasm of colon COLORECTAL CANCER SCREENING DISCUSSION [facility] Start: 04-05-2020 Screening for malignant neoplasm of breast MAMMOGRAM SCREENING DISCUSSION [facility] Start: 2017 COLOGUARD (FIT-DNA) COLOGUARD (FIT-DNA) [facility] Start: 2017 Colonoscopy COLONOSCOPY [facility] Start: 2017 COLORECTAL CANCER SCREENING COLORECTAL CANCER SCREENING [facility] Start: [address] COLONOGRAPHY [facility] Start: 2017 FECAL OCCULT BLOOD FECAL OCCULT BLOOD [facility] Start: 2017 LIPID SCREEN LIPID SCREEN [facility] Start: 2017 Screening for malignant neoplasm of colon [facility] Start: 2017 SIGMOIDOSCOPY SIGMOIDOSCOPY [facility] Start: 2012 Lipid panel LIPID SCREENING [facility] Start: 2012 Mammography MAMMOGRAM [facility] Start: 10-11-2008 Hepatitis B vaccination HEP B VACCINE (3 of 3 - 19+ 3-dose series) [facility] Start: 10-11-2008 Hepatitis B Vaccine (3 of 3 - 19+ 3-dose series) Hepatitis B Vaccine (3 of 3 - 19+ 3-dose series) [facility] Start: 2002 HPV TESTING HPV TESTING [facility] Start: 2002 Screening for malignant neoplasm of cervix HPV Testing [facility] Start: 1993 PAP TESTING PAP TESTING [facility] Start: 1993 Screening for malignant neoplasm of cervix [facility] Start: 1991 Urine microalbumin profile [facility] Start: 1990 Adult BMI Follow Up Plan Adult BMI Follow Up Plan [facility] Start: 1990 ANNUAL PCP TEAM CHRONIC DISEASE VISIT ANNUAL PCP TEAM CHRONIC DISEASE VISIT [facility] Start: 1990 ANNUAL WELLNESS VISIT ANNUAL WELLNESS VISIT [facility] Start: 1990 Anxiety Screening Anxiety Screening [facility] Start: 1990 BP CONTROLLED (<130/80) BP CONTROLLED (<130/80) [facility] Start: 1990 Depression Screening Depression Screening [facility] Start: 1990 HEPATITIS C SCREENING HEPATITIS C SCREENING [facility] Start: 1990 Hepatitis C screening Hepatitis C Screening [facility] Start: 1990 HIV SCREENING HIV SCREENING [facility] Start: 1990 HIV screening HIV Screening [facility] Start: 1987 HIV screening HIV SCREENING DISCUSSION [facility] Start: 1984 Adult depression screening assessment DEPRESSION SCREENING [facility] Start: 1984 Depression screening using PHQ-9 (Patient Health Questionnaire 9) score DEPRESSION SCREENING [facility] Start: 1978 PNEUMOCOCCAL (1 - PCV) PNEUMOCOCCAL (1 - PCV) [facility] Start: 1978 Pneumococcal vaccination Pneumococcal Vaccine (1 - PCV) [facility] Start: 1972 HEPATITIS B (1 of 3 - 3-dose series) HEPATITIS B (1 of 3 - 3-dose series) [facility] Start: 1972 Hepatitis B Vaccine (1 of 3 - 3-dose series) Hepatitis B Vaccine (1 of 3 - 3-dose series) [facility] Start: 1972 Hepatitis C screening HEPATITIS C VIRUS SCREENING [facility] Start: 1972 HPV/COTEST HPV/COTEST [facility] Start: 1972 Screening for malignant neoplasm of cervix [facility] 12 lead ECG EKG 12 lead ECG [facility] 08/12/2023 12:28 AM EDT [facility] Work Phone: 24 hour urine measurement [facility] Albumin [Mass/volume ] in Serum or Plasma [facility] Albumin/Globulin ratio [facility] Chromatin Ab [Units/volume] in Serum or Plasma [facility] Complement C3 [Mass/volume] in Serum or Plasma [facility] Complement C4 [Mass/volume] in Serum or Plasma [facility] CT Abdomen and Pelvi s W contrast IV CT Abdomen / Pelvis With IV Contrast ONLY Imaging STAT 08/12/2023 5:42 AM EDT [facility] End: 01-12-2024 EGD - THERAPEUTIC, EUS, OR TUBE INTERVENTIONS EGD - THERAPEUTIC, EUS, OR TUBE INTERVENTIONS Endoscopy Routine Gastroparesis 1 Occurrences starting 01/11/2023 until 01/12/2024 [facility] Work Phone: Comment on above: 1 Occurrences starting 01/11/2023 until 01/12/[address] [facility] Electrophoresis: [id number] [facility] Electrophoresis: [id number] [facility] Electrophoresis: beta-globulin [facility] Electrophoresis: jenifer ma globulin [facility] FAT, FECAL QUAL FAT, FECAL QUAL Lab Routine Diarrhea due to malabsorption Ordered: 03/15/2023 [facility] Work Phone: Comment on above: Ordered: 03/15/2023 End: 10-11-2023 Gi transit & pres ravinder wireless capsule w/interp CAPSULE ENDOSCOPY SMART Endoscopy Routine Gastroparesis 1 Occurrences starting 10/11/2022 until 10/11/2023 [facility] Work Phone: Comment on above: 1 Occurrences starting 10/11/2022 until 10/11/2023 Globulin [Mass/volum e] in Serum [facility] Homogenous nuclear A b pattern [Titer] in Serum [facility] Hydrogen breath test HYDROGEN (H 2) BREATH TEST GI/Bronch Routine Chronic abdominal pain Bloating Ordered: 08/09/2024 [facility] Comment on above: Ordered: 08/09/2024 IgA [Mass/volume] in Serum or Plasma [facility] IgG [Mass/volume] in Serum or Plasma [facility] IgM [Mass/volume] in Serum or Plasma [facility] Immunofixation for Urine [facility] Lupus anticoagulant [Interpretation] in Platelet poor plasma [facility] Measurement of monoclonal protein concentration [facility] MR Cervical spine WO contrast [facility] Nuclear Ab [Titer] i n Serum [facility] End: 12-17-2023 PAP TITRATION PSG (CPAP, BIPAP, ASV) PAP TITRATION PSG (CPAP, BIPAP, ASV) Procedures Routine CHUCKIE (obstructive sleep apnea) 1 Occurrences starting 11/17/2022 until 12/17/2023 [facility] Work Phone: Comment on above: 1 Occurrences starting 11/17/2022 until 12/17/2023 Patient Education [facility] Work Phone: Patient referral [facility] Work Phone: Protein [Mass/volume ] in Serum or Plasma [facility] Protein [Mass/volume ] in Urine [facility] Reagin Ab [Presence] in Serum by RPR [facility] SARS-CoV-2 (COVID-19 ) RNA [Presence] in Respiratory specimen by JOSÉ MIGUEL with probe detection SELF CHECK COVID Microbiology Routine Follow-up examination after colorectal surgery Ordered: 02/09/2022 [facility] Work Phone: Comment on above: Ordered: 02/09/2022 Serum immunofixation [facility] End: 11-30-2023 SIGMOIDOSCOPY SIGMOIDOSCOPY Endoscopy Routine Chronic idiopathic constipation 1 Occurrences starting 11/30/2022 until 11/30/2023 [facility] Work Phone: Comment on above: 1 Occurrences starting 11/30/2022 until 11/30/2023 SURG PATH REQUEST [facility] Comment on above: Release Upon Ordering for 1 Occurrences starting 04/12/2024, 1 completed Thrombin time [facility] Thyroglobulin Ab [Units/volume] in Serum or Plasma [facility] Thyroperoxidase Ab [Units/volume] in Serum or Plasma [facility] End: 08-12-2023 Troponin I.cardiac [Mass/volume] in Serum or Plasma Troponin I (One time) Lab Timed Once for 1 Occurrences starting 08/12/2023 until 08/12/2023 [facility] [employer] Work Phone: Comment on above: Once for 1 Occurrences starting 08/12/20 until 08/12/2023 URODYNAMICS WHI URODYNAMICS [facility]I Procedures Routine Incomplete bladder emptying Urinary urgency Urinary frequency Nocturia Ordered: 07/31/2023 [facility] Work Phone: Comment on above: Ordered: 07/31/2023 XR Shoulder - bilate ral Views [facility] Immunizations Immunization Date Immunization Notes Care Provider Shante [facility] 07-01-2024 influenza, injectabl e, madin cynthia canine kidney, preservative free Eliceo Dalia Work Phone: [facility] 05-21-2024 Hepatitis B vaccine (recombinant), CpG adjuvanted Sidney Amezquita DPM Work Phone: [facility] 05-21-2024 meningococcal oligosaccharide (groups A, C, Y and W-135) diphtheria toxoid conjugate vaccine (MCV4O) Sidney Amezquita DPM Work Phone: [facility] 04-05-2024 zoster vaccine recombinant Sidney Amezquita DPM Work Phone: [facility] 04-05-2024 zoster vaccine, unspecified formulation Milagros Franco MD, PhD Work Phone: [facility] 12-21-2023 Influenza, injectabl e, Madin Tracy Canine Kidney, preservative free, quadrivalent Sidney Amezquita DPM Work Phone: [facility] 12-21-2023 influenza virus vaccine, unspecified formulation Sandip Chavira [facility] 08-17-2022 influenza, injectabl e, quadrivalent, preservative free Sidney Amezquita DPM Work Phone: [facility] 08-17-2022 influenza virus vaccine, unspecified formulation Nelsy Chávez [employer] Work Phone: [facility] 11-24-2021 Pfizer-BioNTech COVID-19 Vacc 30 MCG/0.3ML Intramuscular Suspension Eliceo Gómez Work Phone: [facility] 250 DO Work Phone: 08-19-2021 KENALOG - 10 mg Erica keys Other [facility] [email or web address] Other 05-11-2021 Pfizer-BioNTech COVID-19 Vacc 30 MCG/0.3ML Intramuscular Suspension Eliceo Gómez Work Phone: [place] [id number] DO Work Phone: 05-10-2021 Pfizer Purple Cap SARS-CoV-2 Vaccination Sidney Amezquita DPM Work Phone: [facility] 04-20-2021 Pfizer-BioNTech COVID-19 Vacc 30 MCG/0.3ML Intramuscular Suspension Eliceo Gómez Work Phone: [facility] 250 DO Work Phone: 04-19-2021 Pfizer Purple Cap SARS-CoV-2 Vaccination Sidney Amezquita DPM Work Phone: [facility] 09-02-2020 influenza, injectabl e, quadrivalent, preservative free Eliceo Gómez Work Phone: [facility] 250 DO Work Phone: 08-06-2020 influenza, injectabl e, quadrivalent, preservative free Eliceo Gómez Work Phone: [facility] 06-22-2020 tetanus toxoid, redu nayeli diphtheria toxoid, and acellular pertussis vaccine, adsorbed Eliceo Gómez Work Phone: [facility] [employer] 250 DO Work Phone: 02-01-2020 Toradol per 15 mg Beto turpin Other [employer] Other 08-20-2019 influenza, injectabl e, quadrivalent, preservative free Sidney Smith DPM Work Phone: [facility] 07-15-2018 influenza, seasonal, injectable, preservative free Eliceo Gómez Work Phone: [email or web address] 250 DO Work Phone: 07-14-2016 Rocephin 500 mg Beto ellis Other [employer] Other 05-12-2008 hepatitis B vaccine, adult dosage Eliceo Góemz Work Phone: [email or web address] 250 DO Work Phone: 04-11-2008 hepatitis B vaccine, adult dosage Eliceo Gómez Work Phone: [email or web address] 250 DO Work Phone: Payers Date Payer Category Payer Private Health Insurance [id number] 2024 Medicare [id number] 2024 Medicare (Managed Care) 1.2. [id number] 2024 Medicare [id number] 2024 Private Health Insurance [id number] 2024 Private Health Insurance 2024 Self-pay [id number] 2022 Unknown 2022 Medicaid [place] [id number] 2021 Medicaid [employer] MED[employer] ID [employer]VANTAGE MEDICAID [id number] 2021-Present [phone] [address] [place] [address] Medicaid [id number]. [id number] 2019 Medicaid [id number]. [id number]. [id number] 1972 Unknown [id number] 2.16.840.1.794284.3.579.2. 176 1972 Unknown [id number] 2.16.840.1.137289.3.579.2. 593 1972 Unknown [id number] 2.16.840.1.676364.3.579.2. 593 1972 Unknown [id number] 2.16.840.1.471733.3.579.2. 593 1972 Unknown [id number] 2.16.840.1.442010.3.579.2. 593 1972 Unknown [id number] 2.16.840.1.370672.3.579.2. 593 1972 Unknown [id number] 2.16.840.1.622869.3.579.2. 593 1972 Unknown [id number] 2.16.840.1.157763.3.579.2. 593 1972 Unknown [id number] 2.16.840.1.527852.3.579.2. 593 1972 Unknown [id number] 2.16.840.1.460517.3.579.2. 593 1972 Unknown [id number] 2.16.840.1.835827.3.579.2. 593 1972 Unknown [id number] 2.16.840.1.936742.3.579.2. 593 1972 Unknown [id number] 2.16.840.1.356818.3.579.2. 593 1972 Unknown [id number] 2.16.840.1.914270.3.579.2. 593 1972 Unknown [id number] 2.16.840.1.069334.3.579.2. 593 1972 Unknown [id number] 2.16.840.1.681373.3.579.2. 593 1972 Unknown [id number] 2.16.840.1.894618.3.579.2. 593 1972 Unknown [id number] 2.16.840.1.816376.3.579.2. 593 1972 Unknown [id number] 2.16.840.1.596347.3.579.2. 297 1972 Unknown [id number] 2.16.840.1.237071.3.579.2. 297 1972 Unknown [id number] 2.16.840.1.082521.3.579.2. 356 1972 Unknown [id number] 2.16.840.1.192512.3.579.2. 356 1972 Unknown [id number] 2.16.840.1.370942.3.579.2. 356 1972 Unknown [id number] 2.16.840.1.239072.3.579.2. 1285 1972 Unknown [id number] 2.16.840.1.512744.3.579.2. 1285 1972 Unknown [id number] 2.16.840.1.897026.3.579.2. 1285 1972 Unknown [id number] 2.16.840.1.324538.3.579.2. 1285 1972 Unknown [id number] 2.16.840.1.113539.3.579.2. 1285 1972 Unknown [id number] 2.16.840.1.924733.3.579.2. 1285 1972 Unknown [id number] 2.16.840.1.409569.3.579.2. 1285 1972 Unknown [id number] 2.16.840.1.922143.3.579.2. 1285 1972 Unknown [id number] 2.16.840.1.410698.3.579.2. 1972 Unknown [id number] 2.16.840.1.275290.3.579.2. 1972 Unknown [id number] 2.16.840.1.577129.3.579.2. 1972 Unknown [id number] 2.16.840.1.552010.3.579.2. 1972 Unknown [id number] 2.16.840.1.376962.3.579.2. 1972 Unknown [id number] 2.16.840.1.572629.3.579.2. 1972 Unknown [id number] 2.16.840.1.122383.3.579.2. 1972 Unknown [id number] 2.16.840.1.712008.3.579.2. 1972 Unknown [id number] 2.16.840.1.468243.3.579.2. 196 1972 Unknown [id number] 2.840.1.888481.3.579.2. 196 1972 Unknown [id number] 2.16840.1.086357.3.579.2. 196 1972 Unknown [id number] 2.840.1.420844.3.579.2. 196 1972 Unknown [id number] 2.840.1.609023.3.579.2. 196 1972 Unknown [id number] 2.840.1.464672.3.579.2. 196 1972 Unknown [id number] 2.840.1.819928.3.579.2. 1286 1972 Unknown [id number] 2.840.1.291884.3.579.2. 594 1972 Unknown [id number] 2.840.1.077243.3.579.2. 594 1972 Unknown [id number] 2.840.1.039746.3.579.2. 594 1972 Unknown [id number] 2.840.1.544445.3.579.2. 594 1972 Unknown [id number] 840.1.657669.3.579.2. 594 1972 Unknown [id number] 2.840.1.646181.3.579.2. 594 1972 Unknown [id number] 2.840.1.158981.3.579.2. 594 1972 Unknown [id number] 2.840.1.160747.3.579.2. 594 1972 Unknown [id number] 2.840.1.758222.3.579.2. 594 1972 Unknown [id number] 2.16.840.1.077884.3.579.2. 594 1972 Unknown [id number] 2.16840.1.835798.3.579.2. 1258 1972 Unknown [id number] 2.16.840.1.983761.3.579.2. 1258 1972 Unknown [id number] 2.16840.1.255878.3.579.2. 1258 1972 Unknown [id number] 2.16840.1.311919.3.579.2. 1258 1972 Unknown [id number] 2.840.1.779753.3.579.2. 1258 1972 Unknown [id number] 2.840.1.737598.3.579.2. 1258 1972 Unknown [id number] 2.840.1.436617.3.579.2. 1258 1972 Unknown [id number] 2.840.1.396963.3.579.2. 1258 1972 Unknown [id number] 2.840.1.175191.3.579.2. 1258 1972 Unknown [id number] 2.16840.1.980409.3.579.2. 1258 1972 Unknown [id number] 2.840.1.344435.3.579.2. 1258 1972 Unknown [id number] 2.840.1.000712.3.579.2. 1258 1972 Unknown [id number] 2.16840.1.945167.3.579.2. 1258 1972 Unknown [id number] 2.16840.1.010235.3.579.2. 1258 1972 Unknown [id number] 2.16840.1.787232.3.579.2. 1258 1972 Unknown [id number] 2.16.840.1.586988.3.579.2. 1258 1972 Unknown [id number] 2.16.840.1.033996.3.579.2. 1258 1972 Unknown [id number] 2.16.840.1.215547.3.579.2. 1258 1972 Unknown [id number] 2.16.840.1.735373.3.579.2. 1258 1972 Unknown [id number] 2.16.840.1.613417.3.579.2. 1258 1972 Unknown [id number] 2.16.840.1.198905.3.579.2. 1258 1972 Unknown [id number] 2.16.840.1.675108.3.579.2. 1258 1972 Unknown [id number] 2.16.840.1.489400.3.579.2. 1258 1972 Unknown [id number] 2.16.840.1.068781.3.579.2. 1258 1972 Unknown [id number] 2.16.840.1.022806.3.579.2. 1258 1972 Unknown [id number] 2.16.840.1.774051.3.579.2. 1258 1972 Unknown [id number] 2.16.840.1.427697.3.579.2. 1258 1972 Unknown [id number] 2.16.840.1.822381.3.579.2. 1258 1972 Unknown [id number] 2.16.840.1.260674.3.579.2. 1258 1959 Medicaid [id number] 1959 Unknown [id number] Unknown [employer] [id number] Unknown [id number] 2.16.840.1.384258.3.579.2. 531 Unknown [id number] 2.16.840.1.589053.3.579.2. 531 Unknown [id number] 2.16.840.1.640968.3.579.2. 531 Unknown [id number] 2.16.840.1.365664.3.579.2. 531 Unknown [id number] 2.16.840.1.036885.3.579.2. 531 Unknown [id number] 2.16.840.1.846868.3.579.2. 531 Unknown [id number] 2.16.840.1.931887.3.579.2. 531 Unknown [id number] 2.16.840.1.822220.3.579.2. 531 Unknown [id number] 2.16.840.1.214573.3.579.2. 531 Social History Date Type Detail Facility Start: 10-08-2020 End: 09-01-2022 Tobacco smoking status NHIS Never smoked tobacco [facility] Start: 10-08-2020 End: 09-01-2022 Tobacco use and exposure Smokeless tobacco non-user [facility] Start: 01-04-2022 End: 11-19-2024 Alcohol intake Lifetime non-drinker (finding) [facility] Start: 10-08-2020 History SDOH Alcohol Frequency 1 [facility] Start: 1970 Sex Assigned At Female [facility] Start: 08-30-2020 End: 07-26-2022 Exposure to SARS-CoV-2 (event) Not sure [facility] Start: 10-08-2020 End: 11-23-2020 Sex Assigned At [facility] Start: 10-08-2020 End: 11-23-2020 No alcohol use No alcohol use [facility] Comment on above: 3 TEA WEEK; How often to you hav e a drink containing alcohol? Never [facility] Average Number of Drinks Not on file [facility] Start: 07-28-2020 Gender identity Identifies as female gender (finding) [facility] Start: 07-03-2021 Sexual orientation Heterosexual (keon quintin) [facility] Start: 06-05-2023 End: 06-05-2023 Tobacco smoking status NHIS Smoker (finding) [facility] Start: 1970 Sex Assigned At Not on file [facility] Tobacco smoking stat [facility] Tobacco smoking consumption unknown [facility] Within the last year , have you [...] [OSQ] Rather much [facility] (I/We) worried wheth er (my/our) food would run out before (I/we) got money to buy more. Sometimes true [facility] Start: 10-24-2023 Alcohol Comment caffeine: 1-2 cups per day [facility] Start: 06-11-2015 End: 09-16-2024 Sex Female (finding) [facility] Start: 01-10-2024 End: 01-18-2024 Alcoholic beverage intake Ex-drinker (finding) [facility] [facility] Procedure Code Equipment Code Equipment Original Text Equipment Identifier Dates Fibertak Fidelity Self-Punching Knotless 2.6mm W/No 5 Suture [id number] Start: 10-14-2020 Fibertak Fidelity Knotless 2.6mm [id number] Start: 10-14-2020 Fidelity Swivelock C 4.75mm Biocomposite Peek 19.1mm Suture Closed Eyelet - [id number] Start: 10-14-2020 Sling Gynecare T vt Exact Gynecological Stress Urinary Incontinence - [id number] Start: 12-24-2021 DISC CERVICAL 13 X15X5H MOBI-C FDA Start: 09-20-2017 DISC CERVICAL 13 X15X5H MOBI-C FDA Start: 09-20-2017 DISC CERVICAL 13 X15X5H MOBI-C FDA Start: 09-20-2017 DISC CERVICAL 13 X15X5H MOBI-C FDA Start: 09-20-2017 DISC CERVICAL 13 X15X5H MOBI-C FDA Start: 09-20-2017 Lead Intrstim Mr amena 28cm - [id number] Start: 01-26-2024 Interstim X Rech arge Free Neurostimulator - [id number] Start: 01-26-2024 DISC CERVICAL 13 X15X5H MOBI-C FDA Start: 09-20-2017 DISC CERVICAL 13 X15X5H MOBI-C FDA Start: 09-20-2017 DISC CERVICAL 13 X15X5H MOBI-C FDA Start: 09-20-2017 DISC CERVICAL 13 X15X5H MOBI-C FDA Start: 09-20-2017 DISC CERVICAL 13 X15X5H MOBI-C FDA Start: 09-20-2017 DISC CERVICAL 13 X15X5H MOBI-C FDA Start: 09-20-2017 Generator Nrstm - [id number] Start: 01-02-2024 Lead Ns Respirat ory - [id number] Start: 01-02-2024 Lead Nrstm Inspr 3 Elect Cuf Tnl Boni Strl Lf - [id number] - [id number] Start: 01-02-2024 DISC CERVICAL 13 X15X5H MOBI-C FDA Start: 09-20-2017 Goals Date Patient Goal Desired Activity /State Clinical Notes 10-27-2020 to 12-10-2024 Telephone Encounter - Demi Machado - 12/10/2024 4:16 PM ESTTelephone Encounter - Kim Acharya RN - 12/10/2024 4:16 PM ESTTelephone Encounter - Demi Machado - 12/10/2024 4:16 PM EST Note Date & Type Note Facility 12-10-2024 Miscellaneous Notes Received call today 12/10/24 4:20 Medication Refill request: Medication Name and Strength: Emgality pen injector 120 mg Current dose & Frequency: Patient stated that provider sends 2 scripts of 120 mg for a total of 240 mg actually taking - not what is listed on the prescription label 30 day or 90 day supply preferred: 30 day [facility] [place] If already on preferred pharmacy list - name only If new pharmacy - specify address & phone number Request was made by: Patient Last office visit 10/23/23. Last med refill start date 05/15/24. Next follow up appt with Dr. 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 Patient's callback# if needed: [phone]. Patient stated she no longer has [place] Medicaid and now has the following (informed patient we don't have this on our covered/non-covered list so I provided her with our tax ID# to check with insurance): Insurance Name: [facility] Medicare Dual Complete ID#: [id number] Grp#: [id number] RxGrp#: [id number] RxBIN#: [id number] RxPCN#: [id number] Provider Service Line phone#: [phone] Refill request for Emgality 120mg/ml verified in refill encounter 05/14/24. Pended to Dr. Christensen for review and signature Start date from last refill: 05/15/24 Next follow up: not yet scheduled [facility] Telephone encounter Note Received call today 12/10/24 4:20 Medication Refill request: Medication Name and Strength: Emgality pen injector 120 mg Current dose & Frequency: Patient stated that provider sends 2 scripts of 120 mg for a total of 240 mg actually taking - not what is listed on the prescription label 30 day or 90 day supply preferred: 30 day Pharmacy Name: [facility] in [place] If already on preferred pharmacy list - name only If new pharmacy - specify address & phone number Request was made by: Patient Last office visit 10/23/23. Last med refill start date 05/15/24. Next follow up appt with Dr. 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 Patient's callback# if needed: [phone]. Patient stated she no longer has [place] Medicaid and now has the following (informed patient we don't have this on our covered/non-covered list so I provided her with our tax ID# to check with insurance): Insurance Name: [employer] Medicare Dual Complete ID#: [id number] Grp#: [id number] RxGrp#: [id number] RxBIN#: [id number] RxPCN#: [id number] Provider Service Line phone#: [phone] [facility] 12-10-2024 Telephone encounter Note Refill request for Emgality 120mg/ml verified in refill encounter 05/14/24. Pended to Dr. Christensen for review and signature Start date from last refill: 05/15/24 Next follow up: not yet scheduled [facility] 11-19-2024 History of Presen t illness Narrative Skin Check Location: Patient requests a skin examination from the waist up Dermatologic history: history of Basal Cell Carcinoma Last visit: 05/06/2024 Established patient All pertinent medical history, medications, and allergies were reviewed. General Exam: alert, oriented to person, place, and time, normal affect, well appearing Unaccompanied A complete skin exam was offered, pt declined. Areas not examined despite medical recommendation: From the waist down Scalp, Examined , exam limited by hair, patients hair was braided Head, Face Examined Neck Examined Chest Examined Back Examined Abdomen Examined Right arm Examined Left arm Examined Hands Examined Digits,nails: Examined Lymphatics: Not examined 1. Seborrheic keratosis (2) Arms, Trunk Stuck on verrucous, variably pigmented papules and plaques. Patient was counseled regarding these benign growths. Removal is normally not necessary, but they may be removed if they are symptomatic or for cosmetic reasons. 2. Lentigines (2) Arms, Trunk Scattered jaimes macules in sun-exposed areas. The patient was informed that lentigines are benign pigmented lesions that occur on sun-exposed and sun-damaged skin. No treatment is necessary. Recommended regular use of broad spectrum sunscreen SPF 30 or higher 3. Capillary angioma Trunk Scattered jorge-red papule(s). The patient was informed that angiomas are benign growths on the the skin. No treatment is necessary. Next Visit: 1 year, skin check documented in this encounter [facility] 11-14-2024 Nuclear medicine Diagnostic study note [facility] [place] [address] Nuclear Medicine Report Signed Patient: Mary Leal MR#: [id number] : 1970 Acct:[id number] Age/Sex: 54 / F ADM Date: 5 Loc: [place] Room: Type: [facility] Attending Dr: Padmaja Llamas MD Copies to: Quinton Melendez Jr, DO Na Li, MD~ Ordering Provider: Padmaja Llamas MD Date of Service: 11/14/24 [place] gastric emptying study: R14.0 K31.84 GASTRIC EMPTYING STUDY: CLINICAL HISTORY: Nausea full filling for 5 years. TECHNIQUE: Following the oral ingestion of 1.1 mCi Tc 99m labeled sulfur colloid mixed withegg, planar imaging of the abdomen was obtained. FINDINGS: At 30 minutes, 88% of the radiotracer remained within the stomach. At 1 hour, 69% of the radiotracer remained within the stomach. At 2 hours, 43% of the radiotracer remained within the stomach. At 3 hours, 18% of the radiotracer remained within the stomach. At 4 hours, 3% of the radiotracer remained within the stomach. [place] gastric emptying study IMPRESSION: No scintigraphic evidence of gastroparesis. Impression dictated by: Quinton Melendez Jr., D.O.11/14/2024 1:54 PM Dictation Location: [place] [address] Transcribed By: PWS 11/14/24 1354 Dictated By: Quinton Melendez Jr, DO 11/14/24 1354 Signed By: 11/14/24 1354 [facility] 11-12-2024 History of Presen t illness Narrative Images from the original note were not included. Dipti Acevedo DO Obstetrics and Gynecology Patient: Mary Leal : 1970 (54 y.o.) Post Operative visit Date: 11/12/2024 Chief Complaint Patient presents with Post-op Visit 10/24/24 vaginal cuff and hymen repair 19 days Denies PO concerns. Bleeding stopped after 7 days. Visit Vitals BP 122/84 Wt 155 lb BMI 26.61 kg/m OB Status Hysterectomy Smoking Status Never BSA 1.78 m History of Present Illness, Associated Treatments and Results - Postoperative Follow-up Patient is a 54 y.o. 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 Eating a regular diet with difficulty. Bowel movements are normal. The patient is not having any pain. Patient denies swelling, redness, or discharge from her incision. OB History Para Term AB Living 4 4 4 SAB IAB Ectopic Multiple Live Births 4 # Outcome Date GA Lbr Jorge/2nd Weight Sex Type Anes PTL Lv 4 Para 7 lb 10 oz Vag-Spont ROHITH 3 Para 7 lb 4 oz Vag-Spont ROHITH 2 Para 6 lb 12 oz Vag-Spont ROHITH 1 Para 8 lb 14 oz Vag-Spont ROHITH Review of Systems-see HPI Medication Documentation Review Audit Reviewed by Nida Toro MA (Clinical Partner) on 11/12/24 at 0827 Medication Order Taking? Sig Documenting Provider Last Dose Status Lolis Maintena 300 MG injection syringe [id number] inject INTRAMUSCULARLY ONCE A MONTH (BRING TO OFFICE FOR PROVIDER TO ADMINISTER) Active albuterol HFA 90 mcg/act inhaler [id number] Inhale 2 puffs every 4 (four) hours if needed for wheezing Eliceo Gómez DO 10/19/24 5636 atenolol (Tenormin) 50 MG tablet [id number] Take 1 tablet (50 mg) by mouth Daily Eliceo Gómez DO Active cholecalciferol (Vitamin D-3) 125 MCG (5000 UT) capsule [id number] Take 125 mcg by mouth Daily Dipti Acevedo DO Active colestipol (Colestid) 1 g tablet [id number] Take 1 g by mouth in the morning and 1 g in the evening. Dipti Acevedo DO Active Daridorexant HCl (Quviviq) 50 MG tablet [id number] Take 50 mg by mouth at bedtime Eliceo Gómez DO Active estradiol (Estrace) 0.1 MG/GM vaginal cream [id number] APPLY 0.5G VAGINALLY TWICE WEEKLY. Dipti Acevedo DO Active estradiol (Estrace) 1 MG tablet [id number] Take 1 tablet (1 mg) by mouth Daily Dipti Acevedo DO Active ferrous sulfate 325 (65 Fe) MG tablet [id number] Take 325 mg by mouth every other day Ron King NP Active fluvoxaMINE (Luvox) 50 MG tablet [id number] Take 50 mg by mouth at bedtime Dipti Acevedo DO Active galcanezumab (Emgality) 120 MG/ML auto-injector [id number] Inject 120 mg under the skin every 30 (thirty) days Dipti Acevedo DO Active L-Theanine 200 MG capsule [id number] Take 1 capsule by mouth Daily Carmen Cruz MD Active losartan (Cozaar) 25 MG tablet [id number] Take 1 tablet (25 mg) by mouth Daily Eliceo Gómez DO Active methylphenidate ER (Concerta) 54 MG CR tablet [id number] Take 54 mg by mouth Daily Eliceo Gómez DO Active mirabegron ER (Myrbetriq) 50 MG 24 hr tablet [id number] Take 1 tablet (50 mg) by mouth at bedtime Do not crush, chew, or split. Dipti Acevedo DO Active Multiple Vitamin (Daily-Elisa Multivitamin) tablet [id number] Yes Take 1 tablet by mouth Daily Dipti Acevedo DO Active omeprazole (PriLOSEC) [address] capsule [id number] Take 40 mg by mouth in the morning. Active Quviviq 25 MG tablet [id number] TAKE 1 TABLET BY MOUTH BEDTIME ( NEEDED) FOR SLEEP Dipti Acevedo DO Active rOPINIRole (Requip) 1 MG tablet [id number] Take 1 tablet (1 mg) by mouth in the morning. Eliceo Gómez DO Active rOPINIRole (Requip) 2 MG tablet [id number] Take 1 tablet (2 mg) by mouth at bedtime Eliceo Gómez DO Active Trelegy Ellipta 100-62.5-25 MCG/ACT aerosol powder [id number] INHALE 1 PUFF BY MOUTH DAILY Eliceo Gómez DO Active triamcinolone (Kenalog) 0.1 % cream [id number] Apply topically 2 (two) times a day Dipti Acevedo DO Active Past Medical History: Diagnosis Date ADHD (attention deficit hyperactivity disorder) ([facility]) 1994 Asthma ([facility]) Basal cell carcinoma right chest Colon polyp Compressed cervical disc Cystocele 2021 Depression ([facility]) Difficulty walking 05/12/23 Eczema 2022 Endometriosis 2014 Fissure, anal Gastroparesis GERD (gastroesophageal reflux disease) 1994 Hormone disorder 2018 Hypertension ([facility]) 2000 Migraine ([facility]) OCD (obsessive compulsive disorder) ([facility]) Panic attack ([facility]) 04/28 Rectocele 2021 RLS (restless legs syndrome) Urinary incontinence 2022 Varicella 1984 Visual impairment 2009 Past Surgical History: Procedure Laterality Date ANTERIOR [...] reconstruction FOOT TENDON SURGERY 11/13/2023 HYSTERECTOMY 2015 [facility] BS INTRAUTERINE DEVICE INSERTION 2013 Mirena OTHER SURGICAL HISTORY scar tissue removed from tonsils ROTATOR CUFF REPAIR Right 10/2016 SPINE SURGERY 2017 TONSILLECTOMY 02/11/2021 TUBAL LIGATION Bilateral 2006 VAGINA SURGERY 10/24/2024 excision of vaginal cuff granulation, partial hymenectomy Family History Problem Relation Name Age of Onset Alzheimer's disease Mother Joanna Hypertension Mother Joanna Atrial fibrillation Father Dad Hypertension Father Dad Coronary artery disease Father Dad Heart failure Father Dad Physical Exam - General appearance, mentation, extraocular movements, facial strength and movement, hearing, upper and lower extremity strength and tone, sensation to gross testing, coordination, and gait are normal or at baseline unless noted below. 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 Assessment/Plan Doing well postoperatively. Operative findings again reviewed. Pathology report discussed. 1. Continue any current medications. 2. Wound care discussed. Educated about suture removal today, may have spot. 3. Activity restrictions: No vaginal IC for 2 weeks. Healing very well. 4. Anticipated return to work: not applicable. 5. Follow up: PRN. Wellness June 2025. ICD-10-CM 1. Aftercare following surgery Z48.89 Entered by Wendy Colon MA acting as scribe for Dr. Dipti Acevedo. Signature Wendy Colon MA Date 11/12/24 . Time 8:33 AM . The documentation recorded by the scribe accurately reflects the service(s) I personally performed and the decisions I made. Signature Gaston MishraOReno Date 11/12/24 Time 5:00PM. documented in this encounter [facility] 10-28-2024 History of Presen t illness Narrative Images from the original note were not included. Dipti Acevedo DO Obstetrics and Gynecology Patient: Mary Leal : 1970 (54 y.o.) Post Operative visit Date: 10/28/2024 Chief Complaint Patient presents with Post-op Visit 10/24/24 vaginal cuff and hymen repair 4 days C/o bright red vaginal bleeding when she wiped. Visit Vitals OB Status Hysterectomy Smoking Status Never History of Present Illness, Associated Treatments and Results - Postoperative Follow-up Patient is a 54 y.o. 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 Eating a regular diet without difficulty. Bowel movements are normal. The patient is not having any pain. Patient denies swelling, redness, or discharge from her incision. OB History Para Term AB Living 4 4 4 SAB IAB Ectopic Multiple Live Births 4 # Outcome Date GA Lbr Jorge/2nd Weight Sex Type Anes PTL Lv 4 Para 7 lb 10 oz Vag-Spont ROHITH 3 Para 7 lb 4 oz Vag-Spont ROHITH 2 Para 6 lb 12 oz Vag-Spont ROHITH 1 Para 8 lb 14 oz Vag-Spont ROHITH Review of Systems-see HPI Medication Documentation Review Audit Reviewed by Nida Toro MA (Clinical Partner) on 10/28/24 at 1502 Medication Order Taking? Sig Documenting Provider Last Dose Status Lolis Maintena 300 MG injection syringe [id number] inject INTRAMUSCULARLY ONCE A MONTH (BRING TO OFFICE FOR PROVIDER TO ADMINISTER) Active albuterol HFA 90 mcg/act inhaler [id number] Inhale 2 puffs every 4 (four) hours if needed for wheezing Eliceo Gómez DO 10/19/24 6329 atenolol (Tenormin) 50 MG tablet [id number] Take 1 tablet (50 mg) by mouth Daily Eliceo Gómez DO Active cholecalciferol (Vitamin D-3) 125 MCG (5000 UT) capsule [id number] Take 125 mcg by mouth Daily Dipti Acevedo DO Active colestipol (Colestid) 1 g tablet [id number] Yes Take 1 g by mouth in the morning and 1 g in the evening. Dipti Acevedo DO Active Daridorexant HCl (Quviviq) 50 MG tablet [id number] Take 50 mg by mouth at bedtime Eliceo Gómez DO Active Discontinued 10/22/24 0842 estradiol (Estrace) 0.1 MG/GM vaginal cream [id number] APPLY 0.5G VAGINALLY TWICE WEEKLY. Dipti Acevedo DO Active estradiol (Estrace) 1 MG tablet [id number] Take 1 tablet (1 mg) by mouth Daily Dipti Acevedo DO Active ferrous sulfate 325 (65 Fe) MG tablet [id number] Take 325 mg by mouth every other day Ron King, NEGATIVE TURNER Active fluvoxaMINE (Luvox) 50 MG tablet [id number] Take 50 mg by mouth at bedtime Dipti Acevedo DO Active galcanezumab (Emgality) 120 MG/ML auto-injector [id number] Inject 120 mg under the skin every 30 (thirty) days Dipti Acevedo DO Active L-Theanine 200 MG capsule [id number] Take 1 capsule by mouth Daily Carmen Cruz MD Active losartan (Cozaar) 25 MG tablet [id number] Take 1 tablet (25 mg) by mouth Daily Eliceo Gómez DO Active methylphenidate ER (Concerta) 54 MG CR tablet [id number] Take 54 mg by mouth Daily Eliceo Gómez DO Active mirabegron ER (Myrbetriq) 50 MG 24 hr tablet [id number] Take 1 tablet (50 mg) by mouth at bedtime Do not crush, chew, or split. Dipti Acevedo DO Active omeprazole (PriLOSEC) [address] capsule [id number] Take 40 mg by mouth in the morning. Active Quviviq 25 MG tablet [id number] Yes TAKE 1 TABLET BY MOUTH BEDTIME ( NEEDED) FOR SLEEP Dipti Acevedo DO Active rOPINIRole (Requip) 1 MG tablet [id number] Take 1 tablet (1 mg) by mouth in the morning. Eliceo Gómez DO Active rOPINIRole (Requip) 2 MG tablet [id number] Take 1 tablet (2 mg) by mouth at bedtime Eliceo Gómez DO Active Trelegy Ellipta 100-62.5-25 MCG/ACT aerosol powder [id number] INHALE 1 PUFF BY MOUTH DAILY Eliceo Gómez DO Active triamcinolone (Kenalog) 0.1 % cream [id number] Apply topically 2 (two) times a day Dipti Acevedo DO Active Past Medical History: Diagnosis Date ADHD (attention deficit hyperactivity disorder) ([facility]) 1994 Asthma ([facility]) Basal cell carcinoma right chest Colon polyp Compressed cervical disc Cystocele 2021 Depression (CMS/HCC) Difficulty walking 05/12/23 Eczema 2022 Endometriosis 2015 Fissure, anal Gastroparesis GERD (gastroesophageal reflux disease) 1995 Hormone disorder 2019 Hypertension (CMS/HCC) 1999 Migraine (CMS/HCC) OCD (obsessive compulsive disorder) (CMS/HCC) Panic attack (CMS/HCC) 04/28 Rectocele 2021 RLS (restless legs syndrome) Urinary incontinence 2022 Varicella 1984 Visual impairment 2009 Past Surgical History: Procedure Laterality Date ANTERIOR [...] reconstruction FOOT TENDON SURGERY 11/13/2023 HYSTERECTOMY 2014 [facility] BS INTRAUTERINE DEVICE INSERTION 2012 Mirena OTHER SURGICAL HISTORY scar tissue removed from tonsils ROTATOR CUFF REPAIR Right 10/2016 SPINE SURGERY 2017 TONSILLECTOMY 02/11/2021 TUBAL LIGATION Bilateral 2006 VAGINA SURGERY 10/24/2024 cuff and hymen repair Family History Problem Relation Name Age of Onset Alzheimer's disease Mother Joanna Hypertension Mother Joanna Atrial fibrillation Father Dad Hypertension Father Dad Coronary artery disease Father Dad Heart failure Father Dad Physical Exam - General appearance, mentation, extraocular movements, facial strength and movement, hearing, upper and lower extremity strength and tone, sensation to gross testing, coordination, and gait are normal or at baseline unless noted below. 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 Continue any current medications. 2. Wound care discussed. 3. Activity restrictions: no vaginal penetration. No heavy lifting. 4. Anticipated return to work: not applicable. 5. Follow up: 2 weeks ICD-10-CM 1. Aftercare following surgery Z48.89 Entered by Wendy Colon MA acting as scribe for Dr. Dipti Acevedo. Signature Wendy Colon MA Date 10/28/24 . Time 3:20 PM . The documentation recorded by the scribe accurately reflects the service(s) I personally performed and the decisions I made. Signature Mario Acevedo D.O. Date 10/28/24 Time 5:00PM. documented in this encounter [facility] 10-23-2024 History of Presen t illness Narrative Images from the original note were not included. GASTROENTEROLOGY CLINIC FOLLOW-UP VISIT Referring Provider for today's consult: No ref. provider found Primary Care Provider: Shannon Gómez MEREDITH: 08/07/24 CC: gastroparesis History of Present Illness Mary Leal is a 54 y.o. female who presents to the [facility] today for follow-up of diarrhea, gastroparesis. Prior visit HPI: Ms. Leal has followed with several other [...] in bowel movements. Ultimately she had a total abdominal colectomy initially with end ileostomy but now has continuity. She has 4 loose to soft bowel movements a day with some urgency and rare incontinence. Workup so far: 04/12/24 EGD with Hill Grade I, no esophagitis, chronic gastritis, dilated pylorus and esophagus to 20mm with balloon dilator. Biopsies with reflux reaction and erosive gastritis but negative HP. 11/23/23 - normal HIDA scan 68% EF [...] sig done for constipation, normal 11/24/22 VCE 03/28/22 TAC with ileal rectal anastomosis 07/07/21 anorectal manometry Impression poor pelvic floor coordination 12/17/19 - GES retention of the gastric activity is 94% at one hour, 94% at two hour, and 46% at four hours. TODAY: No change in dysphagia with dilation of esophagus, continues to have compensatory mechanisms. No food impactions Continues to have restrictive food patterns, she is very worried about weighing 155 instead of 150 today. She eats only in the evening for fear of symptoms but also of weight gain. She has an appointment with a plumbing and heating mechanic 10/28. She was started on buspar for uncontrolled anxiety by her PCP. Loose stools 4-8 times a day [place] 6. Occasional BRBPR. Reglan increased diarrhea, does not want to restart Continues to have occasional abdominal pain and bloating, but not severe. Otherwise, she denies any recent fevers, chills, night sweats, unexpected weight loss, chest pain, shortness of breath, nausea, vomiting, constipation, melena, hematochezia. Allergies She is allergic to risperidone. Current Outpatient Medications Medication Sig Abilify Maintena 300 MG Prefilled Syringe IM injection inject INTRAMUSCULARLY ONCE A MONTH (BRING TO OFFICE FOR PROVIDER TO ADMINISTER) Ajovy 225 MG/1.5ML Solution Auto-injector inject 1 AND 1/2 milliliters subcutaneously every 28 DAYS Atenolol 25 MG tablet Take 1 tablet by mouth Daily (with dinner). Cetirizine 10 MG tablet Take 1 tablet by mouth daily. (Patient not taking: Reported on 08/07/2024) ferrous sulfate 325 (65 Fe) MG tablet Take 1 tablet by mouth every other day. lamoTRIgine 25 MG tablet Take 1 tablet by mouth daily. Losartan 25 MG tablet Take 1 tablet by mouth daily. methylphenidate ER 54 MG tablet Take 1 tablet by mouth daily. Multiple Vitamin (Multivitamin Adult) tablet Take 1 tablet by mouth daily. omeprazole [address] capsule Take 1 capsule by mouth daily. pregabalin 25 MG capsule Take 2 capsules by mouth 3 times daily. Quviviq 50 MG tablet Take 50 mg by mouth Every night. rOPINIRole 1 MG tablet Take 1 tablet by mouth daily every morning. rOPINIRole 2 MG tablet Take 1 tablet by mouth at bedtime. Trelegy Ellipta 100-62.5-25 MCG/ACT Aerosol Powder, breath activated inhaler Inhalation for 30 Days Vitamin D3 125 MCG (5000 UT) per tablet Take 1 tablet by mouth daily. Family History family history includes Heart Failure in her father; Hypertension in her father and mother. Social History Social History Social History Narrative Not on file Review of Systems A full review of systems was performed and is negative unless otherwise stated in the HPI. Physicial Exam Smoking Status Never Wt Readings from Last 3 Encounters: 10/23/24 69.4 kg (153 lb) 08/22/24 68 kg (150 lb) 08/07/24 69.9 kg (154 lb) Vitals: 10/23/24 1043 BP: 112/80 Pulse: 68 SpO2: 98% General: NAD, resting comfortably in chair HEENT: AT/NC, no scleral icterus, oropharynx unremarkable Lungs: CTABL, no wheezing, rales, rhonchi Heart: RRR, no murmurs, rubs, gallops Abdomen: +BS, soft, NT/ND, no rebound/guarding Rectal: one column of hemorrhoidal tissue without active bleeding, visualized externally and palpated internally, brown stool in vault. No fissures. Appropriate rectal tone. Extremities: 2+ pedal/radial pulses, no cyanosis, no pedal edema, no obvious jaundice Neurologic: AAOx3, CN2-12 grossly intact, 5/5 strength in all 4 extremitis, no asterixis Labs/imaging: All relevant prior procedures, laboratory and radiology images were reviewed. Assessment/Plan Mary Leal is a 54 y.o. female who was seen in the [facility] for gastroparesis, colonic dysmotility s/p TAC with ileal rectal anastomosis c/b diarrhea, and concomitant anorexia. IMPRESSION: 1. Gastroparesis 2. Hemorrhoidal Bleeding 3. Severe constipation s/p TAC with ileal rectal anastomosis 3. Anorexia nervosa 4. Anxiety ASSESSMENT/PLAN: - repeat gastroparesis emptying study, last one >5 years ago - if gastroparesis still severe, will explore if she is a G-poem candidate for symptom improvement because reglan has caused severe diarrhea in the past and she is not currently interested in retrying - for hemorrhoids, will plan for lifestyle management, decrease diarrhea to improve rectal irritation - add colestipol for diarrhea - check fecal fat and elastase - she has fu with psych and nutrition for anorexia Follow up in 4-6 months The patient was seen with Dr. Llamas. Please see their addendum for further details and additional recommendations. Radha Cardenas M.D. Fellow Physician PGY5 Division of Gastroenterology, Hepatology & Nutrition Department of Internal Medicine [facility] Pager [phone] or Epic Chat with questions This writer editor verified the patient's name and . Attending: Padmaja Llamas MD, PhD Patient was [...] likely related to gastroparesis, GI dysmotility, SIBO. Had hydrogen breath test done but not a valid test. Weight has stabilized. EGD on 04/12/24 showed irregular Z line, empiric dilation 20mm of esophagus and pylorus without endoscopic evidence of improvement, erosive gastropathy, negative H pylori. She eats one meal a day and also reported concerns of weight gain with eating. Vit D deficiency, started on supplement. FIB4 0.7. Ferritin 9, iron sat 13% on iron supplement. Hb 12.6. normal TSH. Negative stool O&P. On Omeprazole daily for jail due to hx of grade D esophagitis, erosive gastropathy and gastroparesis. At interval, persistent loose stool [place] type 6 about 5-6 times daily with occasional nocturnal diarrhea and hematochezia. Will follow up with eating disorder on 10/28 for fear of eating and weight gain. Based on clinical course, may repeat gastric emptying test and refer to advanced endoscopy for evaluation of G-POEM if clinically indicated. Repeat hydrogen breath test. Trial of colestipol 1g BID for possible bile acid diarrhea. Will check stool fat, elastase r/o malabsorption. Hemorrhoids on PE. Mary Leal was offered and accepted a Medical Graphic Production Artist for this exam/procedure/test 10/23/2024. Name of Medical Graphic Production Artist: Tania Keely documented in this encounter [facility] 10-23-2024 Instructions Radha Cardenas MD - 10/23/2024 11:00 AM EST It was a pleasure to see you today. The following are your instructions: - lifestyle modification for hemorrhoidal bleeding - start colestipol daily at first, then increase to twice daily to decrease bowel movement volume - check stool studies - repeat gastroparesis study - follow up locally for psych and nutrition for anorexia If you had labs drawn, I or my team will either call you, send you a [employer] message, or mail you a letter with the results of your tests within 1-2 weeks after you have completed your tests. If you do not hear from our office, please call the clinic to receive your results at [phone]. As a reminder, [facility] [employer] should not be used as a form of communication that replaces an office visit. It can be used for reminders and clarifications If you need to fax old records in, please fax to [phone]. If you have any concerning symptoms, please seek immediate medical attention. documented in this encounter [facility] 10-15-2024 History of Presen t illness Narrative Images from the original note were not included. Dipti Acevedo, DO Obstetrics and Gynecology Mary Leal 1970 10/15/24 [id number] Pre Operative Exam Chief Complaint Patient presents with Pre-op Visit States bleeding after intercourse each time. Visit Vitals BP 108/68 Wt 155 lb BMI 26.61 kg/m OB Status Hysterectomy Smoking Status Never BSA 1.78 m OB History Para Term AB Living 4 [...] Current Outpatient Medications Medication Sig Dispense Refill fluvoxaMINE (Luvox) 50 MG tablet Take 50 mg by mouth at bedtime Abilify Maintena 300 MG injection syringe inject [...] reconstruction FOOT TENDON SURGERY 11/13/2023 HYSTERECTOMY 2014 [facility] BS INTRAUTERINE DEVICE INSERTION 2013 [facility] OTHER SURGICAL HISTORY scar tissue removed from tonsils ROTATOR CUFF REPAIR Right 10/2016 SPINE SURGERY 2017 TONSILLECTOMY 02/11/2021 TUBAL LIGATION Bilateral 2006 Past Medical History: Diagnosis Date ADHD (attention deficit hyperactivity disorder) ([facility]) 1994 Asthma ([facility]) Basal cell carcinoma right chest Colon polyp Compressed cervical disc Cystocele 2021 Depression ([facility]) Difficulty walking 05/12/23 Eczema 2022 Endometriosis 2015 Fissure, anal Gastroparesis GERD (gastroesophageal reflux disease) 1995 Hormone disorder 2019 Hypertension ([facility]) 2000 Migraine ([facility]) OCD (obsessive compulsive disorder) ([facility]) Panic attack ([facility]) 04/28 Rectocele 2021 RLS (restless legs syndrome) Urinary incontinence 2022 Varicella 1984 Visual impairment 2009 ROS See HPI Exam GENERAL EXAMINATION alert oriented well developed, well nourished. HEAD: normocephalic atraumatic. EYES: sclera anicteric. EARS: no obvious hearing deficit. NECK/THYROID: neck supple no cervical lymphadenopathy no thyromegaly. LYMPH NODES: no axillary, supraclavicular or inguinal adenopathy. SKIN: warm and dry. HEART: regular rate and rhythm. LUNGS: clear to auscultation bilaterally. BACK: no costovertebral angle tenderness, no obvious scoliosis/kyphosis. 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 NEUROLOGIC: alert and oriented. PSYCH: cooperative with exam. ICD-10-CM 1. PCB (post coital bleeding) N93.0 2. Granulation tissue L92.9 3. Hymen abnormality Q52.4 Painful IC Entered by Wendy Colon MA acting as scribe for Dr. Dipti Acevedo. Signature Wendy Colon MA Date 10/15/24 . Time 3:05 PM . The documentation recorded by the scribe accurately reflects the service(s) I personally performed and the decisions I made. Signature Mario Acevedo D.O. Date 10/15/24 Time 5:00PM. documented in this encounter [facility] 10-14-2024 Evaluation note Diagnosis Onset Date Resolution Cervical radiculopathy acute De cember 2023 8:25am Cervical radiculopathy acute vin 2024 1:13pm [facility] Work Phone: 1(178) 140-869811-22-2024 History of Present illness Narrative* Wendy Colon MA - 09/27/2024 11:45 AM EST Images from the original note were not included. Dipti Acevedo, Obstetrics and Gynecology Mary Leal 1970 09/27/24 [id number] Exam Chief Complaint Patient presents with Follow-up [...] reconstruction FOOT TENDON SURGERY 11/13/2023 HYSTERECTOMY 2014 [facility] BS INTRAUTERINE DEVICE INSERTION 2013 [facility] OTHER SURGICAL HISTORY scar tissue removed from tonsils ROTATOR CUFF REPAIR Right 10/2016 SPINE SURGERY 2017 TONSILLECTOMY 02/11/2021 TUBAL LIGATION Bilateral 2006 Past Medical History: Diagnosis Date ADHD (attention deficit hyperactivity disorder) (CMS/HCC) 1994 Asthma (CMS/HCC) Basal cell carcinoma right chest Colon polyp Compressed cervical disc Cystocele 2021 Depression (CMS/HCC) Difficulty walking 05/12/23 Eczema 2022 Endometriosis 2014 Fissure, anal Gastroparesis GERD (gastroesophageal reflux disease) 1994 Hormone disorder 2019 Hypertension ([facility]) 2000 Migraine ([facility]) OCD (obsessive compulsive disorder) ([facility]) Panic attack ([facility]) 04/28 Rectocele 2021 RLS (restless legs syndrome) Urinary incontinence 2022 Varicella 1984 Visual impairment 2010 ROS See HPI EXAM GENERAL EXAMINATION alert oriented well developed, well nourished. 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 Granulation [...] in vault today. Educated on granulation steve lonnie, her hysterectomy was 2014. If granulation continues to be bothersome may need to return for surgical excision under anesthesia for revision of R vaginal cuff and possible excision of hymenal remnant. Entered by Wendy Colon MA acting as scribe for Dr. Dipti Acevedo. Signature Wendy Colon MA Date 09/27/24 . Time 11:49 AM . The documentation recorded by the scribe accurately reflectsthe service(s) I personally performed and the decisions I made. Signature Mraio Acevedo D.O. Date 09/27/24 Time 5:00PM. documented in this [facility]11-21-2024 History of Present illness Narrative* Ron King NP - 09/26/2024 4:20 PM EST Images from the original note [...] Prior to Visit Medication Sig Dispense Refill Abilifsteven Maintena 300 MG injection syringe inject INTRAMUSCULARLY [...] after colorectal surgery JOLEEN (generalized anxiety disorder) ([facility]) Headache History of 2019 novel coronavirus disease (COVID-19) Impingement syndrome of right shoulder Increased frequency of urination Lingual tonsil hypertrophy Major depressive disorder, recurrent, moderate (CMS/[facility]) Nasal congestion Nausea Partial nontraumatic rupture of right rotator cuff Poor urinary stream Stress incontinence in female Unspecified inflammatory spondylopathy, cervical region ([facility]) Urinary urgency Wheezing Pain due to internal orthopedic prosthetic devices, implants and grafts, initial encounter ([facility]) Belching Past Medical History: Past Medical History: Diagnosis Date ADHD (attention deficit hyperactivity disorder) ([facility]) 1994 Asthma ([facility]) Basal cell carcinoma right chest Colon polyp Compressed cervical disc Cystocele 2021 Depression ([facility]) Difficulty walking 05/12/23 Eczema 2022 Endometriosis 2014 Fissure, anal Gastroparesis GERD (gastroesophageal reflux disease) 1994 Hormone disorder 2019 Hypertension ([facility]) 2000 Migraine ([facility] OCD (obsessive compulsive disorder) ([facility] Panic attack ([facility]) 04/28 Rectocele 2021 RLS (restless legs syndrome) [...] reconstruction FOOT TENDON SURGERY 11/13/2023 HYSTERECTOMY 2014 [facility] INTRAUTERINE DEVICE INSERTION 2013 [facility] OTHER SURGICAL HISTORY scar tissue removed from tonsils ROTATOR CUFF REPAIR Right 10/2016 SPINE SURGERY 2017 TONSILLECTOMY 02/11/2021 TUBAL LIGATION Bilateral 2005 Social History: Social Drivers of Health Tobacco [...] 10 min Stress: Stress Concern Present (05/01/2024) [employer] - Occupational Stress Questionnaire [...] Violence: Not At Risk (06/23/2023) Received from [employer] [employer] [facility] Safety Threatened: Not on file Insulted: Not [...] working or operating heavy machinery. Keep appts withneurosurgery for further care and treatment. Follow up if symptoms worsen or fail to improve. documented [facility] encounterE[facility] [id number] History of Present illness Narrative* Wendy Colon MA - 09/24/2024 8:15 AM EST Images from the original note were not included. Dipti Acevedo, DO Obstetrics and Gynecology Mary Leal 1970 09/24/24 [id number] Exam Chief Complaint Patient presents with Gynecologic [...] reconstruction FOOT TENDON SURGERY 11/13/2023 HYSTERECTOMY 2015 [facility] INTRAUTERINE DEVICE INSERTION 2013 Mirena OTHER [...] 2000 Migraine (CMS/HCC) OCD (obsessive compulsive disorder) (CMS/HCC) Panic attack (CMS/HCC) 04/28 Rectocele 2021 RLS (restless legs syndrome) Urinary incontinence 2022 Varicella 1984 Visual impairment 2010 ROS See HPI EXAM GENERAL EXAMINATION alert oriented well developed, well nourished. HEAD: normocephalic atraumatic. EYES: sclera anicteric. EARS: no obvious hearing deficit. 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 documented in this encounterE[facility] [id number] Evaluation note* Diagnosis Onset Date Resolution Status Admit Date Cervical radiculopathy acute No vember 2023 2:53pm Cervical radiculopathy acute De cember 2023 8:25am [facility] Work Phone: 1(705) 649-777411-11-2024 Evaluation note* Diagnosis Onset Date Resolution Status Admit Date Cervical radiculopathy acute No vember 2023 2:53pm Cervical radiculopathy acute De cember 2023 8:25am Cervical radiculopathy acute Ja [facility] 2024 1:13pm [facility] Work Phone: 1(614) 512-267510-30-2024 History of Present illness Narrative* Wendy Colon MA - 09/04/2024 3:15 PM EDT Images from the original note were not included. Dipti Acevedo, Obstetrics and Gynecology Mary Keys Elvis 1970 09/04/24 [id number] Exam Chief Complaint Patient presents with Follow-up [...] reconstruction FOOT TENDON SURGERY 11/13/2023 HYSTERECTOMY 2014 [facility] BS INTRAUTERINE DEVICE INSERTION 2012 Mirena OTHER [...] reflux disease) 1994 Hormone disorder 2019 Hypertension ([facility]) 1999 Migraine ([facility]) OCD (obsessive compulsive disorder) ([facility]) Panic attack ([facility]) 04/28 Rectocele 2021 RLS (restless legs syndrome) Urinary incontinence 2022 Varicella 1984 Visual impairment 2010 ROS See HPI EXAM GENERAL EXAMINATION alert oriented well developed, well nourished. HEAD: normocephalic atraumatic. EYES: sclera anicteric. EARS: no obvious hearing deficit. 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 documented in this encounterEastern [facility] State [id number] History of Present illness Narrative* Ron King, NEGATIVE TURNER - 09/04/2024 2:40 PM EDT Images from the original note were not included. SUBJECTIVE: Mary Leal is a 54 y.o. female presents with chief complaint of No chief complaint on file. Pt presents to discuss her anxiety. Pt notes that she is in between therapy at this time, is going to est with [facility] psych in the first few weeks of [...] by mouth 3 (three) times a day asneeded [DISCONTINUED] diazePAM (Valium) 10 MG tablet Take 10 mg by mouth [DISCONTINUED] pregabalin (Lyrica) 75 MG capsule Take 1 capsule (75 mg) by mouth in the morning and1 capsule (75 mg) before bedtime. 60 capsule [...] after colorectal surgery JOLEEN (generalized anxiety disorder) ([facility]) Headache History of 2019 novel coronavirus disease (COVID-19) Impingement syndrome of right shoulder Increased frequency of urination Lingual tonsil hypertrophy Major depressive disorder, recurrent, moderate (CMS/[facility]) Nasal congestion Nausea Partial nontraumatic rupture of right rotator cuff Poor urinary stream Stress incontinence in female Unspecified inflammatory spondylopathy, cervical region ([facility]) Urinary urgency Wheezing Pain due to internal orthopedic prosthetic devices, implants and grafts, initial encounter ([facility]) Belching Past Medical History: Past Medical History: Diagnosis Date ADHD (attention deficit hyperactivity disorder) ([facility]) 1994 Asthma ([facility]) Basal cell carcinoma right chest Colon polyp Compressed cervical disc Cystocele 2021 Depression ([facility]) Difficulty walking 05/12/23 Eczema 2022 Endometriosis 2015 Fissure, anal Gastroparesis GERD (gastroesophageal reflux disease) 1994 Hormone disorder 2019 Hypertension ([facility]) 2000 Migraine ([facility] OCD (obsessive compulsive disorder) ([facility] Panic attack ([facility]) 04/28 Rectocele 2021 RLS (restless legs syndrome) [...] SURGERY 2017 TONSILLECTOMY 02/11/2021 TUBAL LIGATION Bilateral 2005 Social History: Social Drivers of Health Tobacco [...] 10 min Stress: Stress Concern Present (05/01/2024) [employer] - Occupational Stress Questionnaire [...] Violence: Not At Risk (06/23/2023) [facility] [employer] Safety Threatened: Not on file Insulted: Not [...] past 4 weeks) Urine dip Collection Time: 09/04/24 3:19 PM Result Value Ref Range Color, [...] (around 10/02/2024) for PRN. documented in this encounterEastern Missouri State [id number] History of Present illness Narrative* Tania Riggs - 08/07/2024 9:00 AM EDT This MA verified patients name and . * Radha Cardenas MD - 08/07/2024 9:00 AM EDT Images from the original note [...] subtotal colectomy, who presents today to the [facility] for chronic abdominal pain, bloating, [...] reflux with burning symptoms 12/07/22 EGD with MAC LA grade D esophagitis, pyloric balloon dilator dilated to 20mm 12/05/22 Flex sig done for constipation, normal 11/24/22 VCE 07/07/21 anorectal manometry Impression poor pelvic floor coordination 12/17/19 - GES retention of the gastric activity is 94% at one hour, 94% at two hour, and 46% at four hours. Ms. Leal sees a local project administrator. She is worried about parasites with the loose stools, and SIBOdue to bloating. Ms. Leal has a history of severe reflux esophagitis but is not currently taking PPI she stopped due to concerns of side effects. She is taking an over the counter supplement root extract recommended by her local project administrator. She does not take a multivitamin. Last [...] with food. She feels better at this hosiery bagger weight and is afraid to eat for weight gain, not due to her symptoms. She is not currently following with project administrator or counselor and is open to both. [...] performed and is negative unless otherwise stated inthe HPI. Physicial Exam BP 120/82 (BP Location: [...] subtotal colectomy, who presents today to the [facility] G[facility] for chronic abdominal pain, bloating, [...] & Nutrition Department of Internal Medicine [facility] Pager [phone] or Epic Chat with questions * Padmaja Llamas MD, PhD - 08/07/2024 9:00 AM EDT Attending: Padmaja Llamas MD, PhD Patient was seen and examined with Dr. Cardenas. PMH, PSH, SH, FH were reviewed. I personally reviewed the pertinent labs, images, and procedures. Agree with the assessment and plans. Briefly, GERD, gastroparesis, pelvic floor dysfunction, chronic constipation s/p subtotal colectomyin 12/2022 now with soft regular 4-6 times daily BM, here for early satiety and unintentional weightloss. GES 2019 (The retention of the gastric [...] effect. HIDA scan 11/2023 normal. US 04/2023 hepaticsteatosis, no cholelithiasis. Last CT abdomen 08/2023 post [...] gain with eating. Vit D deficiency, started onsupplement. FIB4 0.7. Ferritin 9, iron sat 13% on iron supplement. Hb 12.6. normal TSH. Negative stool O&P. Continue Omeprazole daily for jail due to hx of grade D esophagitis, erosive gastropathy and gastroparesis. Refer to nutrition and psychology (fear of eating). Continue current medications. Based on clinical course, may repeat gastric emptying test and refer to advanced endoscopy for evaluation of G-POEM if clinically indicated. [facility] Instructions* Patient Instructions* Radha Cardenas MD - 08/07/2024 9:00 AM EDT It was a pleasure to see you today. The following are your instructions: - referral to GI specific siene maker, will request video/telephone visit for you - referral to psychology to help you heal your relationship with food - continue omeprazole, vitamin D, and iron repletion - repeat H2 breath testing as able If you had labs drawn, I or my team will either call you, send you a [employer] message, or mail you aletter with the results of your tests within 1-2 weeks after you have completed your tests. If you do not hear from our office, please call the clinic to receive your results at [phone]. As a reminder, [facility] [employer] should not be used as a form of communication that replaces an office visit. It can be used for reminders and clarifications If you need to fax old records in, please fax to [phone]. If you have any concerning symptoms, please seek immediate medical attention. documented [facility] this [facility] History of Present illness Narrative* Eliceo Gómez, DO - 08/01/2024 3:20 PM EDT Images from the original note were not included. SUBJECTIVE: Mary Leal is a 54 y.o. female presents with chief complaint of tongue sores Mouth problem: Pt presents to the office with burning sensation of the tongue. Onset: a couple months ago intermittently. Has complaints of white sores on tongue. Pt admits to waking up with a thick white film on tongue. Admits to lack of taste due to sores. Previously used nystatin solution and came back within 2 weeks. Review of Systems: Review of Systems Problem List: Patient Active Problem List Diagnosis [...] after colorectal surgery JOLEEN (generalized anxiety disorder) (CMS/HCC) Headache History of 2019 novel coronavirus disease (COVID-19) Impingement syndrome of right shoulder Increased frequency of urination Lingual tonsil hypertrophy Major depressive disorder, recurrent, moderate (HCC) (CMS/HCC) Nasal congestion Nausea Partial nontraumatic rupture of right rotator cuff Poor urinary stream Stress incontinence in female Unspecified inflammatory spondylopathy, cervical region (CMS/HCC) Urinary urgency Wheezing Pain due to internal orthopedic prosthetic devices, implants and grafts, initial encounter ([facility]) Belching Past Medical History: Past Medical History: Diagnosis Date ADHD (attention deficit hyperactivity disorder) ([facility]) 1994 Asthma ([facility]) Basal cell carcinoma right chest Colon polyp Compressed cervical disc Cystocele 2021 Depression ([facility]) Difficulty walking 05/12/23 Eczema 2022 Endometriosis 2015 Fissure, anal Gastroparesis GERD (gastroesophageal reflux disease) 1994 Hormone disorder 2019 Hypertension ([facility]) 1999 Migraine ([facility]) OCD (obsessive compulsive disorder) ([facility]) Panic attack ([facility]) 04/28 Rectocele 2021 RLS (restless legs syndrome) [...] reconstruction FOOT TENDON SURGERY 11/13/2023 HYSTERECTOMY 2014 [facility] INTRAUTERINE DEVICE INSERTION 2013 [facility] OTHER SURGICAL HISTORY scar tissue removed from tonsils ROTATOR CUFF REPAIR Right 10/2016 SPINE SURGERY 2017 TONSILLECTOMY 02/11/2021 TUBAL LIGATION Bilateral 2006 Social History: Social Determinants of Health Tobacco Use: Low Risk (08/01/2024) Patient History Smoking Tobacco Use: Never Smokeless [...] 10 min Stress: Stress Concern Present (05/01/2024) [employer] - Occupational Stress Questionnaire [...] Violence: Not At Risk (06/23/2023) Received from [facility] Safety Threatened: Not on file Insulted: Not [...] with medical instructions: Never OBJECTIVE: Visit Vitals OB Status Hysterectomy Smoking Status Never Physical Exam Constitutional: Appearance: Normal appearance. HENT: Head: Normocephalic and atraumatic. Eyes: Extraocular Movements: Extraocular movements intact. Conjunctiva/sclera: Conjunctivae normal. Pupils: Pupils are equal, round, and reactive to light. Cardiovascular: Rate and Rhythm: Normal rate and regular rhythm. Pulmonary: Effort: Pulmonary effort is normal. Breath sounds: Normal breath sounds. Abdominal: General: Bowel sounds are normal. Palpations: Abdomen is soft. Musculoskeletal: General: Normal range of motion. Skin: General: Skin is warm and dry. Neurological: General: No focal deficit present. Mental Status: She is alert and oriented to person, place, and time. Psychiatric: Mood and Affect: Mood normal. Thought Content: Thought content normal. Judgment: Judgment normal. No results found for this or any previous visit (from the past 672 hour(s)). ASSESSMENT AND PLAN: Assessment/Plan Diagnoses and all orders for this visit: Oral candidiasis Patient advised to return if symptoms worsen and/or persist despite treatment. - nystatin (Mycostatin) 197158 UNIT/ML suspension; Take 5 mL (500,000 Units) by mouth in the morning and 5 mL (500,000 Units) at noon and 5 mL (500,000 Units) in the evening and 5 mL (500,000 Units) before bedtime. Do all this for 8 days. Tongue pain - pregabalin (Lyrica) 75 MG capsule; Take 1 capsule (75 mg) by mouth in the morning and 1 capsule (75 mg) before bedtime. Updated Medications: I have reviewed and reconciled the history and medication list with the patient today. Current Outpatient Medications: baclofen (Lioresal) 10 MG tablet, Take 10 mg by mouth Daily, Disp: , Rfl: ibuprofen 800 MG tablet, Take 800 mg by mouth 3 (three) times a day as needed for moderate pain or mild pain, Disp: , Rfl: Abilify Maintena 300 MG injection syringe, inject INTRAMUSCULARLY ONCE A MONTH (BRING TO OFFICE FORPROVIDER TO ADMINISTER), Disp: , Rfl: albuterol HFA 90 mcg/act inhaler, Inhale 2 puffs every 4 (four) hours if needed for wheezing, Disp:, Rfl: atenolol (Tenormin) 50 MG tablet, Take 1 tablet (50 mg) by mouth Daily, Disp: 90 tablet, Rfl: 1 cetirizine (ZyrTEC) 10 MG tablet, TAKE 1 TABLET BY MOUTH EVERY DAY, Disp: 30 tablet, Rfl: 1 cholecalciferol (Vitamin D-3) 125 MCG (5000 UT) capsule, Take 125 mcg by mouth Daily, Disp: , Rfl: cyclobenzaprine (Flexeril) 10 MG tablet, Take 10 mg by mouth 3 (three) times a day as needed, Disp:, Rfl: Daridorexant HCl (Quviviq) 50 MG tablet, Take 50 mg by mouth at bedtime, Disp: , Rfl: diazePAM (Valium) 10 MG tablet, Take 10 mg by mouth, Disp: , Rfl: estradiol (Estrace) 0.1 MG/GM vaginal cream, Apply 0.5g vaginally twice weekly., Disp: 42.5 g, Rfl:1 ferrous sulfate 325 (65 Fe) MG tablet, Take 325 mg by mouth every other day, Disp: , Rfl: Qeyjpfkabkl-Xfhmqhgjc-Zhsdro 100-62.5-25 MCG/ACT aerosol powder , Inhale 1 puff Daily, Disp: , Rfl: galcanezumab (Emgality) 120 MG/ML auto-injector, Inject 120 mg under the skin every 30 (thirty) days, Disp: , Rfl: L-Theanine 200 MG capsule, Take 1 capsule by mouth Daily, Disp: , Rfl: losartan (Cozaar) 25 MG tablet, Take 1 tablet (25 mg) by mouth Daily, Disp: 30 tablet, Rfl: 11 methylphenidate ER (Concerta) 54 MG CR tablet, Take 54 mg by mouth Daily, Disp: , Rfl: omeprazole (PriLOSEC) [address] capsule, Take 40 mg by mouth in the morning., Disp: , Rfl: rOPINIRole (Requip) 1 MG tablet, Take 1 tablet (1 mg) by mouth in the morning., Disp: 90 tablet, Rfl: 1 rOPINIRole (Requip) 2 MG tablet, Take 1 tablet (2 mg) by mouth at bedtime, Disp: 90 tablet, Rfl: 1 documented in this encounterEastern Missouri State [id number] NoteSLEEP/NEUROLOGY CLINIC FOLLOW-UP EVALUATION Date of Evaluation: 07/26/24 Referring [...] regarding sleep. She eventually was evaluated at [facility] sleep gackle with Dr. Sherman and had sleep study [...] was also evaluated at sleep medicine at [facility], and saw Dr. Ynoi Tuttle on 10/14/2022. She was subsequently started on auto-CPAP 5-15 cm H2O with nasal mask in December 2022. She uses the CPAP for about a week, and had severe intolerance and felt suffocated. She had severe pressure and mask intolerance, and despite changes in masks and pressure settings she was not able to tolera (more content not included)...[facility] 07-11-2024 History of Present illness Narrative* Eliceo Gómez, - 07/11/2024 9:40 AM EDT Images from the original note were not included. SUBJECTIVE: Mary Leal is a 54 y.o. female presents with chief complaint of Mass Lump: Pt has complaints of lump of left side of abdomen. Onset: over the weekend. Pt does noticed some tenderness and pain. Occasionally notices a pain twigging feeling. Has not been seen regarding. Review of Systems: Review of Systems All other systems reviewed and are negative. Problem List: Patient Active Problem List Diagnosis [...] cystitis Genitourinary syndrome of menopause Incontinence Migraine ([facility]) CHUCKIE (obstructive sleep apnea) Other fatigue Overactive [...] after colorectal surgery JOLEEN (generalized anxiety disorder) ([facility]) Headache History of 2019 novel coronavirus disease (COVID-19) Impingement syndrome of right shoulder Increased frequency of urination Lingual tonsil hypertrophy Major depressive disorder, recurrent, moderate (HCC) (CMS/[facility]) Nasal congestion Nausea Partial nontraumatic rupture of right rotator cuff Poor urinary stream Stress incontinence in female Unspecified inflammatory spondylopathy, cervical region (CMS/[facility]) Urinary urgency Wheezing Pain due to internal orthopedic prosthetic devices, implants and grafts, initial encounter ([facility]) Belching Past Medical History: Past Medical History: Diagnosis Date ADHD (attention deficit hyperactivity disorder) ([facility]/HCC) 1994 Asthma ([facility]) Basal cell carcinoma right chest Colon polyp Compressed cervical disc Cystocele 2021 Depression (CMS/HCC) Difficulty walking 05/12/23 Eczema 2022 Endometriosis 2015 Fissure, anal Gastroparesis GERD (gastroesophageal reflux disease) 1995 Hormone disorder 2019 Hypertension ([facility]) 2000 Migraine ([facility] OCD (obsessive compulsive disorder) ([facility]) Panic attack ([facility]) 04/28 Rectocele 2021 RLS (restless legs syndrome) Urinary incontinence 2022 Varicella 1984 Visual impairment 2010 Family History: Family History Problem Relation Name [...] reconstruction FOOT TENDON SURGERY 11/13/2023 HYSTERECTOMY 2015 KARINA BS INTRAUTERINE DEVICE INSERTION 2013 Mirena OTHER SURGICAL HISTORY scar tissue removed from tonsils ROTATOR CUFF REPAIR Right 10/2016 SPINE SURGERY 2017 TONSILLECTOMY 02/11/2021 TUBAL LIGATION Bilateral 2006 Social History: Social Determinants of Health Tobacco Use: Low Risk (07/11/2024) Patient History Smoking Tobacco Use: Never Smokeless [...] 10 min Stress: Stress Concern Present (05/01/2024) [employer] - Occupational Stress Questionnaire [...] Violence: Not At Risk (06/23/2023) Received from [facility], [facility] Safety Threatened: Not on file Insulted: Not [...] with medical instructions: Never OBJECTIVE: Visit Vitals OB Status Hysterectomy Smoking Status Never Physical Exam Constitutional: Appearance: Normal appearance. HENT: Head: Normocephalic and atraumatic. Eyes: Extraocular Movements: Extraocular movements intact. Conjunctiva/sclera: Conjunctivae normal. Pupils: Pupils are equal, round, and reactive to light. Cardiovascular: Rate and Rhythm: Normal rate and regular rhythm. Pulmonary: Effort: Pulmonary effort is normal. Breath sounds: Normal breath sounds. Abdominal: General: Bowel sounds are normal. Palpations: Abdomen is soft. Musculoskeletal: General: Normal range of motion. Skin: General: Skin is warm and dry. Comments: Right le in walking boot Left infraumbilical tender mobile irregular bordered 2cm soft tissue mass c/w lipoma Neurological: General: No focal deficit present. Mental Status: She is alert and oriented to person, place, and time. Gait: Gait abnormal. Psychiatric: Mood and Affect: Mood normal. Thought Content: Thought content normal. Judgment: Judgment normal. Recent Results (from the past 672 hour(s)) Lupus like panel Collection Time: 06/14/24 11:54 AM Result Value Ref Range CHUYITA SCREEN, IFA NEGATIVE NEGATIVE DNA (DS) ANTIBODY <1 IU/mL SCL-70 ANTIBODY <1.0 NEG <1.0 NEGATIVE AI SM ANTIBODY <1.0 NEG <1.0 NEGATIVE AI SM/[employer] ANTIBODY <1.0 NEG <1.0 NEGATIVE AI SJOGREN'S ANTIBODY (SS-A) <1.0 NEG <1.0 NEGATIVE AI SJOGREN'S ANTIBODY (SS-B) <1.0 NEG <1.0 NEGATIVE AI Sedimentation rate, automated Collection Time: 06/14/24 11:54 AM Result Value Ref Range SED RATE BY MODIFIED WESTERGREN 9 < OR = 30 mm/h Rheumatoid factor Collection Time: 06/14/24 11:54 AM Result Value Ref Range RHEUMATOID FACTOR <10 <14 IU/mL ASSESSMENT AND PLAN: Assessment/Plan Diagnoses and all orders for this visit: Gastro-esophageal reflux disease without esophagitis Problem is stable, will continue with current treatment plan. Call or return to clinic if any changes occur Gastroparesis Mild intermittent asthma, unspecified whether complicated ([facility]) Patient advised to return if symptoms worsen and/or persist despite treatment.improved significantly, continue current treatment - albuterol HFA 90 mcg/act inhaler; Inhale 2 puffs every 4 (four) hours if needed for wheezing - Agqchmmatbw-Saudrqjlx-Puvozz 100-62.5-25 MCG/ACT aerosol powder ; Inhale 1 puff Daily Soft tissue mass Patient advised to return if symptoms worsen and/or persist despite treatment. - US Soft Tissue Palpable Mass; Future Updated Medications: I have reviewed and reconciled the history and medication list with the patient today. Current Outpatient Medications: Belsomra 10 MG tablet, Take 10 mg by mouth at bedtime, Disp: , Rfl: cyclobenzaprine (Flexeril) 10 MG tablet, Take 10 mg by mouth 3 (three) times a day as needed, Disp:, Rfl: diazePAM (Valium) 10 MG tablet, Take 10 mg by mouth, Disp: , Rfl: methylphenidate ER (Concerta) 54 MG CR tablet, Take 54 mg by mouth Daily, Disp: , Rfl: Lolis Maintena 300 MG injection syringe, inject INTRAMUSCULARLY ONCE A MONTH (BRING TO OFFICE FORPROVIDER TO ADMINISTER), Disp: , Rfl: albuterol HFA 90 mcg/act inhaler, Inhale 2 puffs every 4 (four) hours if needed for wheezing (Patient not taking: Reported on 06/14/2024), Disp: 8.5 g, Rfl: 2 atenolol (Tenormin) 50 MG tablet, Take 1 tablet (50 mg) by mouth Daily, Disp: 90 tablet, Rfl: 1 cetirizine (ZyrTEC) 10 MG tablet, TAKE 1 TABLET BY MOUTH EVERY DAY, Disp: 30 tablet, Rfl: 1 cholecalciferol (Vitamin D-3) 125 MCG (5000 UT) capsule, Take 125 mcg by mouth Daily, Disp: , Rfl: [facility] Senna 8.6 MG tablet, TAKE 1 TABLET BY MOUTH DAILY NEEDED FOR CONSTIPATION FOR 7 DAYS, Disp: , Rfl: Daridorexant HCl (Quviviq) 50 MG tablet, Take 50 mg by mouth at bedtime, Disp: , Rfl: Enoxaparin Sodium 40 MG/0.4ML solution prefilled syringe, INJECT 1 SYRINGE SUBCUTANEOUSLY ONCE EVERY 24 HOURS FOR 30 DAYS, Disp: , Rfl: estradiol (Estrace) 0.1 MG/GM vaginal cream, Use 1 gram vaginally nightly x 2 weeks then twice per rose, Disp: , Rfl: ferrous sulfate 325 (65 Fe) MG tablet, Take 325 mg by mouth every other day, Disp: , Rfl: Lnhmxytopoz-Qlzecqmbj-Ounmvu (Trelegy Ellipta) 100-62.5-25 MCG/ACT aerosol powder , Inhale, Disp: ,Rfl: Kinurfobhha-Zxdugcese-Ndpcyf 100-62.5-25 MCG/ACT aerosol powder , Inhale 1 puff Daily, Disp: 60 each, Rfl: 5 fremanezumab (Ajovy) 225 MG/1.5ML auto-injector, Inject 225 mg under the skin., Disp: , Rfl: galcanezumab (Emgality) 120 MG/ML auto-injector, Inject 120 mg under the skin every 30 (thirty) days, Disp: , Rfl: L-Theanine 200 MG capsule, Take 1 capsule by mouth Daily, Disp: , Rfl: lamoTRIgine (LaMICtal) 25 MG disintegrating tablet, Take 25 mg by mouth in the morning., Disp: , Rfl: losartan (Cozaar) 25 MG tablet, Take 1 tablet (25 mg) by mouth Daily, Disp: 30 tablet, Rfl: 11 nystatin (Mycostatin) 051225 UNIT/ML suspension, Take 5 mL by mouth in the morning and 5 mL at noonand 5 mL in the evening and 5 mL before bedtime. BY MOUTH for 1-2 MINUTES and then swallow., Disp: , Rfl: omeprazole (PriLOSEC) [address] capsule, Take 40 mg by mouth in the morning., Disp: , Rfl: ondansetron ODT (Zofran-ODT) 4 MG disintegrating tablet, DISSOLVE 1 TABLET ON THE TONGUE EVERY 8 HOURS NEEDED FOR NAUSEA/ VOMITING FOR 5 DAYS, Disp: , Rfl: oxyCODONE-acetaminophen (Percocet) 5-325 MG tablet, TAKE 1 TABLET BY MOUTH EVERY 6 HOURS NEEDED FOR 7 DAYS, Disp: , Rfl: rOPINIRole (Requip) 1 MG tablet, Take 1 tablet (1 mg) by mouth in the morning., Disp: 90 tablet, Rfl: 1 rOPINIRole (Requip) 2 MG tablet, Take 1 tablet (2 mg) by mouth at bedtime, Disp: 90 tablet, Rfl: 1 triamcinolone (Kenalog) 0.1 % cream, Apply to affected areas, up to twice a day when flared, do notuse one the face, groin, or underarms, 30 day supply, Disp: 30 g, Rfl: 11 Vyvanse 70 MG capsule, Take 70 mg by mouth Daily, Disp: , Rfl: documented in this encounterEastern Missouri State [id number] History of Present illness Narrative* Sidney Amezquita DPM - 06/27/2024 9:45 AM EDT Images from the original note were not included. HPI: Mary Leal presents today to obtain orthotics. She did have surgery at the end of May with Dr. Felix and is following his post-op instructions for the right foot. No other complaints. Exam: General Examination: GENERAL APPEARANCE: awake, aware of surroundings, in no acute distress Vascular: DORSALIS PEDIS PULSE: 2/4, bilaterally POSTERIOR TIBIAL PULSE: 2/4, bilaterally TEMPERATURE GRADIENT: warm to cool EDEMA: along the lateral right ankle CAPILLARY FILLING TIME(sec): capillary fill inact bilateral digits less than 3 secs Neurologic: NEUROLOGIC: light touch is intact to the plantar foot Dermatologic: SKIN FINDINGS: scar along the lateral and anterior right ankle/foot HYPERKERATOSIS: none NAIL PATHOLOGY: digits 1-5 bilateral are intact SKIN PATHOLOGY: texture, turgor, hair growth, within normal limits Orthopedic: FOOT MORPHOLOGY: neutral JOINT RANGE OF MOTION: limited to the midfoot right, arthrodesis to the subtalar joint and TN joint DEFORMITIES: none PAIN ELICITED WITH PALPATION OF: Pain with palpation along the lateral aspect of the right foot along the course of the peroneal tendons and to the styloid process of the fifth metatarsal PAIN ELICITED WITH ROM: Eversion of the right foot which is limited MUSCLE STRENGTH: 5/5 for all pedal groups tested Orthotics fit well with no evidence of rubbing and good support noted to the arch with adequate width and length. Assessments: Peroneal tendinitis right Right foot pain Status post arthrodesis right foot Plan: 1. Patient was dispensed one pair of custom molded foot orthotics (L3020) and was advised of the proper break-in process. Instructional handout was also dispensed. The orthotics are medically necessary and within the standard of care for the patients diagnosis. Their purpose is to mechanically control the heel and arch and to decrease the stress and strain associated with the patients biomechanical fault. The orthotic devices were dispensed and fitted into the shoes. 2. Instructed pt on the correct shoe gear to appropriately fit the orthotics along with the warranty coverage for manufacturing defects or fit issues. The orthotics fit well when sized to the patients feet, as well as shoes. The patient was instructed on the proper fit, use, care, and break-in period. The patient was dispensed home going instructions describing proper break-in period of adjustment of the orthotics. 3. Patient was instructed to continue with conservative care reguarding their condition. All questions were answered about treatment plan and use and function of the orthotic devices. The patient wasalso instructed to watch for areas of rubbing, irritation, blister formation, or any other signs ofabnormal pressure. If this occurs, the patient is to contact the office. 4. RTC: 3 weeks for Orthotic Check and follow-up if needed. documented in this encounterEastern Missouri State [id number] Telephone encounter Note* Telephone Encounter - Serenity Joseph MA - 06/12/2024 2:19 PM EDT LDH=11/30/22 MEREDITH=10/11/22 Patient will need a follow up appointment For future refills [facility]08-07-2024 Miscellaneous Notes* Telephone Encounter - Serenity Joseph MA - 06/12/2024 2:19 PM EDT LDH=11/30/22 MEREDITH=10/11/22 Patient will need a follow up appointment For future refills [facility] in [facility] encounterBar[facility] Miscellaneous Notes* Telephone Encounter - Sandip Chavira - 05/14/2024 8:15 AM EDT Patient stated as of 06/06/24, she will have a different insurance. The new insurance will not pay for medication fremanezumab-vfrm (AJOVY AUTOINJECTOR) 225 mg/1.5 mL , but will pay for EMGALITY. Asking if she could go back to EMGALITY and this medication works better for her. Patient also is [facility]ies[facility] [address] [place] [address] * Telephone Encounter - Carmen Barkley RN - 05/14/2024 8:15 AM EDT Added new pharmacy to patient's chart. Please advise on medication changes. * Telephone Encounter - Pauline Christensen MD - 05/14/2024 8:15 AM EDT Yes, ok to switch to Emgalty- she will need loading dose of 120 mg x 2 injections = 240 mg for the first month, and afterwards 120 mg Q4 weeks maintenance. Thanks * Telephone Encounter - Carmen Barkley RN - 05/14/2024 8:15 AM EDT Orders placed for review and signature by physician for Emgality loading and maintenance dose. Prior auth submitted to [facility] via [employer]. Tejada: [id number] documented [facility] Telephone encounter Note* Telephone Encounter - Sandip Chavira - 05/14/2024 8:15 AM EDT Patient stated as of 06/06/24, she will have a different insurance. The new insurance will not pay for medication fremanezumab-vfrm (AJOVY AUTOINJECTOR) 225 mg/1.5 mL , but will pay for EMGALITY. Asking if she could go back to EMGALITY and this medication works better for her. Patient also is [facility]ies[facility] [address] [place] [address] [facility]07-09-2024 Telephone encounter Note* Telephone Encounter - Carmen Barkley RN - 05/14/2024 8:15 AM EDT Added new pharmacy to patient's chart. Please advise on medication changes. [facility]07-09-2024 Telephone encounter Note* Telephone Encounter - Pauline Christensen MD - 05/14/2024 8:15 AM EDT Yes, ok to switch to Emgalty- she will need loading dose of 120 mg x 2 injections = 240 mg for the first month, and afterwards 120 mg Q4 weeks maintenance. Thanks [facility] [employer] [id number] Telephone encounter Note* Telephone Encounter - Carmen Barkley RN - 05/14/2024 8:15 AM EDT Orders placed for review and signature by physician for Emgality loading and maintenance dose. Prior auth submitted to [facility] via [employer]. [place]: [id number] [facility] [employer] [id number] NoteQuality of life Answer each question by shading in the eek completely. Choose only one answer for each [...] 70 75 80 85 90 95 100 [facility]06-23-2024 NoteEpworth Sleepiness Scale Please rate the following as to how [...] Problems: There are no active Hospital Problems. [facility]06-12-2024 Note Attestation signed by Grant Biswas, PhD at 04/18/2024 10:57 AM I have read and agree with the title specialist's documentation and treatment summary. Please note there [...] PhD (electronically signed on 04/17/2024 at 8:49 AM)[facility]06-07-2024 Nurse Note* Nursing Notes - Stacie Johns RN - 04/12/2024 12:45 PM EDT Dilated LES to 20mm with balloon, held for [address] Franco [facility]06-07-2024 Miscellaneous Notes* Nursing Notes - Stacie Johns RN - 04/12/2024 12:45 PM EDT Dilated LES to 20mm with balloon, held for [address] Franco * Nursing Notes - Stacie Johns RN - 04/12/2024 12:41 PM EDT Dilated pylorus to 20mm with balloon, held for [address] Franco. * Nursing Notes - Stacie Johns RN - 04/12/2024 12:12 PM EDT Sedation, vital signs, airway, and monitoring per anesthesia. [facility] Nurse [facility]* Nursing Notes - Stacie Johns RN - 04/12/2024 12:41 PM EDT Dilated pylorus to 20mm with balloon, held for [address] Franco. [facility]06-07-[facility] History and physical note* Milagros Franco MD, PhD - 04/12/2024 12:30 PM EDT ENDOSCOPIC PREPROCEDURE HISTORY AND PHYSICAL HISTORY OF PRESENT ILLNESS: Mary Leal is a 53 y.o. female seen in the pre-procedure area at [facility]. The indication for endoscopic evaluation includes: [place] grade D esophagitis Early satiety Unintentional weight [...] Intravenous, Continuous, Milagros Franco MD, PhD, Last Rate:20 mL/hr at 04/12/24 1150, New Bag at 04/12/24 1150 lidocaine 1% buffered in sodium bicarbonate 1-8.4 % injection SOSY 1 mL, 1 mL, Intradermal, PRN, Milagros Franco MD, PhD midazolam (VERSED) injection 10 mg, 10 mg, Intravenous, As directed PRN, Milagros Franco MD,PhD Naloxone (NARCAN) injection 0.4 mg, 0.4 mg, Intravenous, As directed PRN, Milagros Franco MD, PhD simethicone in sterile water 40 mg/1000 mL irrigation 1 Application, 1 Application, Irrigation, As directed PRN, Milagros Franco MD, PhD simethicone undiluted 40 mg/0.6 mL irrigation 1 Application, 1 Application, Irrigation, As directedPRN, Milagros Franco MD, PhD ALLERGIES: Allergies Allergen [...] Monitored Anesthesia Care. Milagros Franco MD, PhD [facility] Work Phone: [phone] 301-931206-07-2024 History and physical note* Milagros Franco MD, PhD - 04/12/2024 12:30 PM EDT ENDOSCOPIC PREPROCEDURE HISTORY AND PHYSICAL HISTORY OF PRESENT ILLNESS: Mary Leal is a 53 y.o. female seen in the pre-procedure area at [facility]. The indication for endoscopic evaluation includes: [place] grade D esophagitis Early satiety Unintentional weight [...] Intravenous, Continuous, Milagros Franco MD, PhD, Last Rate:20 mL/hr at 04/12/24 1150, New Bag at 04/12/24 1150 lidocaine 1% buffered in sodium bicarbonate 1-8.4 % injection SOSY 1 mL, 1 mL, Intradermal, PRN, Milagros Franco MD, PhD midazolam (VERSED) injection 10 mg, 10 mg, Intravenous, As directed PRN, Milagros Franco MD,PhD Naloxone (NARCAN) injection 0.4 mg, 0.4 mg, Intravenous, As directed PRN, Milagros Franco MD, PhD simethicone in sterile water 40 mg/1000 mL irrigation 1 Application, 1 Application, Irrigation, As directed PRN, Milagros Franco MD, PhD simethicone undiluted 40 mg/0.6 mL irrigation 1 Application, 1 Application, Irrigation, As directedPRN, Milagros Franco MD, PhD ALLERGIES: Allergies Allergen [...] Milagros Franco MD, PhD documented in this encounterOS[facility]06-[facility] Nurse Note* Sae Kaur RN - 04/12/2024 12:30 PM EDT 1316- Family/[employer] driver arrived to recovery bay. RN provided and reviewed discharge instructions to patient and daughter. Verbalized understanding. All questions answered. 1326- Patient ambulated off ASC unit independently with [employer] driver. documented in this [facility]* Sae Kaur RN - 04/12/2024 12:30 PM EDT 1316- Family/otr hazmat company driver arrived to recovery bay. RN provided and reviewed discharge instructions to patient and daughter. Verbalized understanding. All questions answered. 1326- Patient ambulated off ASC unit independently with otr hazmat company driver. [facility]06-07-2024 Nurse Note* Nursing Notes - Stacie Johns RN - 04/12/2024 12:12 PM EDT Sedation, vital signs, airway, and monitoring per anesthesia. [facility]05-29-2024 Note Attestation signed by Pauline Christensen MD at 04/03/2024 4:16 PM I personally saw and examined the patient on the same date of service as resident/fellow Dr. Dumont. I discussed the findings and therapeutic plan with the resident/fellow . I agree with the documentation, except for any edits/updates below. Teaching Physician's Revisions: None Pauline Christensen MD. Workforce Specialist of Neurology and Sleep Medicine [facility] SLEEP/NEUROLOGY CLINIC FOLLOW-UP EVALUATION Date of Evaluation: [...] regarding sleep. She eventually was evaluated at [facility] sleep gackle with Dr. Sherman and had sleep study [...] we referred her to (more content not included)...[facility] 03-14-2024 Telephone encounter Note* Telephone Encounter - Jacquelin Lowery RN - 03/14/2024 9:56 AM EDT 02/27/24 OV with Orquidea: ASSESSMENT: Mary Leal [...] Now they are coming back. Advised her Ican forward her message to see if vaginal [...] Rx has been sent. Jacquelin Lowery RN [facility]05-09-2024 Miscellaneous Notes* Telephone Encounter - Jacquelin Lowery RN - 03/14/2024 9:56 AM EDT 02/27/24 OV with Orquidea: ASSESSMENT: Mary Leal [...] Now they are coming back. Advised her Ican forward her message to see if vaginal [...] sent. Jacquelin Lowery RN documented in this encounterBarney Children'S Medical Center2024 NoteHNO ID: [id number] Author: FLOWER LOPEZ APRN.CHEERLEADING COACH Service: ? Author Type: Nurse Practitioner Type: [...] intermittently- somewhat improved. She has worked with [employer] rep re: interstim setting, now on program [...] you received about pain medications helpful? Yes Graphic Production Artist offered:Patient declines OBJECTIVE: BP 146/93 Pulse 62 [...] notes 65% improvement s/p (more content not included)...[facility]2024 History of Present illness Narrative* Flower Lopez APRN.CHEERLEADING COACH - 02/27/2024 10:00 AM EDT Female Pelvic Medicine & Reconstructive Surgery Post-Op Visit Mary Leal is a 53 year old female who presents for a 6 Week post-op check s/p Interstim Stage1 and 2 Intraoperative advanced programming, fluoroscopy. History since surgery: Urinary symptoms are better: She estimates that her symptoms are 65% improved with Interstim. Frequency improved. Now getting up only once at night to void. Daytime frequency much improved. Still has feeling of incomplete emptying/ rentention intermittently- somewhat improved. She has worked with [employer] rep re: interstim setting, now on program [...] you received about pain medications helpful? Yes Graphic Production Artist offered:Patient declines OBJECTIVE: BP 146/93 Pulse 62 [...] understanding. Flower Lopez APRN.CNP documented in this encounterBarney Children'S Medical Center04-16-2024 Miscellaneous Notes* Telephone Encounter - Denisse Truong RN - 02/20/2024 7:24 AM EDT Pt sent mc message 13 days ago requested diflucan for an on going yeast infection from antibiotics given for a procedure. Please advise. Pt of MEREDITH 11/21/23: The patient tolerated the procedure well. We will see how she does over the next week and plan for interstim stages 1/2 in the OR. Denisse Truong RN February 20, 2024 7:32 AM documented in this encounterBarney Children'S Medical Center04-07-2024 NoteHNO ID: [id number] Author: LISSA DOYLE APRN.CNP Service: ? Author Type: Nurse Practitioner Type: Progress Notes Filed: 02/11/2024 15:16 Note Text: Visit cancelled. Patient checked into express care online system for My ongoing yeast infection. I've tried 3 Diflucan. . Connected to visit, advised PCP or local Express/Urgent Care in person evaluation. Patient verbalized understanding and comfortable with plan. Nontoxic appearance. Lissa Doyle APRN.CNPAdams County Regional Medical Center04-07-2024 History of Present illness Narrative* Lissa Doyle APRN.CNP - 02/11/2024 3:14 PM EDT Visit cancelled. Patient checked into express care online system for My ongoing yeast infection. I've tried 3 Diflucan. . Connected to visit, advised PCP or local Express/Urgent Care in person evaluation. Patient verbalized understanding and comfortable with plan. Nontoxic appearance. Lissa Doyle APRN.CNP documented in this encounterBarney Children'S Medical Center04-03-2024 NoteSLEEP/NEUROLOGY CLINIC FOLLOW-UP EVALUATION Date of Evaluation: 02/07/24 Referring [...] a second opinion from [facility] at [facility], and saw Dr. Yoni Tuttle on 10/14/2022. [...] regarding sleep. She eventually was evaluated at [facility] sleep center with Dr. Sherman and [...] would like to av (more content not included)...[facility]03-23-2024 Miscellaneous Notes* Telephone Encounter - Radha Dunham MD - 01/27/2024 10:44 AM EDT Pattern Illustrator Resident Telephone Encounter 01/27/2024 10:44 AM Call duration: 5 min Called pt today regarding post op pain. Pt identity verified by name and . Patient reports intense sharp shooting pain in L buttocks and rectum when sitting since Interstim stage 1 and 2 procedure yesterday 01/[address] Wang. Reports pain only occurs when she sits, doesnot feel otherwise. She reports she turned down [...] Discussed with Dr. Mullins Urogyn fellow physician vocational rehabilitation counselor. Radha Dunham MD Obstetrics and Gynecology, PGY1 documented in this encounterBarney Children'S Medical Center03-21-2024 History and physical note * Max Marroquin PA-C - 01/25/2024 9:00 AM EDT PREANESTHESIA CONSULT CLINIC TELEHEALTH VISIT SERVICE DATE: 01/25/2024 SERVICE TIME: 9:02 AM Patient has been identified by name and date of : Yes Reason for contact: PACC visit Accompanied by: Self This is a virtual visit using [employer] Video Visit. It required patient- provider interaction for the medical decision making as documented below. I have communicated my name and active licensure. The patient's identity and physical location wereverified at the time of this visit. Either the patient or their legal account representative has been informed of the risks [...] OF NEEDLE/CATHETER TIP FOR DIAG OR THERAPUETIC SPINE/PARASPINOUSINJECTION PROCEDURES at the request of Dr. Pam [...] using inspire to get activated 02/07/2024 ) [id number] Score: Age: <65 Sex: female CHF history: No Hypertension history: Yes Stroke/TIA/thromboembolism history: No Vascular disease history: No Diabetes history: No [id number] Score: 2 ANESTHESIA FINDINGS: Intubation History: No [...] Cutler present: no Lip Bite Test: I Microretrognathia/Micronagthia/Recessed Chin: No DENTAL Dental findings: teeth intact. [...] inject 1 AND 1/2 milliliters subcutaneously every 28DAYS Yes Dexlansoprazole 60 mg CpDM take 1 capsule by mouth before breakfast Yes rOPINIRole (REQUIP) 2 mg tablet Take 1 mg by mouth twice daily. Takes 1 mg in the AM and 2 mg PM Yes khflcrhmklb-bcoaniaob-idmaifvm (TRELEGY ELLIPTA) 100-62.5-25 mcg Inhale 1 Puff as instructed once daily. Yes No medication comments found. ALLERGIES Allergen Reactions Risperidone Intolerance Breast discharge Poison Brenda Extract Rash Covid Immunization Dates Overdue - Covid-19 Vaccine (2022-) Overdue since 07/07/2023 11/24/2021 Imm Admin: COVID-19 original vaccine, age 12+ yr, monovalent (PFIZER- BIONTECH - PURPLE TOP) 05/11/2021 Imm Admin: COVID-19 original vaccine, age 12+ yr, monovalent (PFIZER- BIONTECH - PURPLE TOP) 04/20/2021 Imm Admin: COVID-19 original vaccine, age 12+ yr, monovalent (PFIZER- BIONTECH - PURPLE TOP) REVIEW OF SYSTEMS: positive findings are BOLD PAIN ASSESSMENT: Pain Description: Burning, Pressure Duration Amount of Time: 7 Duration Units: Weeks Frequency: Continuous Intervention/Comfort measure: Reposition General: Obesity Body mass index is 25.75 kg/m . No weight loss, malaise or fevers. Neuro: No history of TIA's, stroke, CYBER FORENSIC SPECIALIST tumor, impaired sensorium, hemiplegia, paraplegia or quadraplegia. No neurological symptoms or problems. Respiratory: CHUCKIE and asthma Negative for Bronchitis, COPD, Pneumonia within 6 weeks (date), URI < 2 weeks Negative for cough, wheezing or shortness of breath. Negative for hemoptysis. Cardiovascular: HTN Negative for Recent NH, CAD, CHF Negative for chest pain, orthopnea, [...] 01/25/2024 TIME: 9:02 AM documented in this encounterBarney Children'S Medical Center03-19-2024 Instructions* Patient Instructions* Max Marroquin PA-C - 01/23/2024 3:50 PM EDT PATIENT PREOPERATIVE INSTRUCTIONS Pam Wang MD has scheduled you for your procedure at this surgery center: [facility] Scheduling Office: [phone] [address] [place] [address]. Arrival Time for Surgery: - To obtain your arrival time for surgery, call your physician's office the day before your surgery. - If your surgery is scheduled for Monday, call the Monday before. Your surgeon s sugar drier will tell you what time to call the office. - If you have not reached the departmental sugar drier by 5 P.M., call [phone] after 5 P.M. the day before your [...] Procedures: - YOU MUST HAVE A RESPONSIBLE PRIVACY SPECIALIST TAKE YOU HOME. A HYDROGENATION OPERATOR OR MOTOR VEHICLE PARTS INTERPRETER CANNOT BE MADE A RESPONSIBLE PRIVACY SPECIALIST. - We recommend that a responsible person stays with you overnight to take care of you. - You cannot stay in a hotel alone after outpatient surgery. You will not be permitted to have yoursurgery, if you do not have someone to take care of you. If you already have an Advance Directive, please fax a copy to [phone] or email to for it to be [...] day. Max Marroquin PA-C documented in this encounterBarney Children'S Medical Center03-18-2024 NoteHNO ID: [id number] Author: LEV THOMPSON LPN Service: ? Author Type: LICENSED NURSE Type: Progress Notes Filed: 01/25/2024 09:48 Note Text: DATE OF SERVICE: 01/25/2024 PROBLEM: Mary Leal presents for pre-op teaching. PRE-OP DIAGNOSIS: urinary urgency SCHEDULED SURGERY AND DATE: 01-26-24 [facility] INSRT NSTIM GENERATOR BLADDER W/ POCKET [...] patient have an advanced directive: No Does [facility] have a copy of the patient's advanced [...] prescribed by anesthesia, internal medicine, surgeon, or NEGATIVE TURNER Stop NSAIDs, Aspirin (ASA), vitamins, herbal supplements, [...] jewelry, body piercing, makeup, contacts, lotions, nail wallisian on fingers, or anything in hair on arrival to surgery Wear low healed shoes and loose fitting clothing Leave all valuables at home or with a family member Directions to [facility] Parking/parking validation on the day prior to [...] if after hours patient instructed to call card tape converter operator and ask for vocational rehabilitation counselor master technician resident. DENISA program offered to patient: Yes [...] None Educator: Lev Thompson LPN [facility] InstituteAd[facility]03-18-2024 History of Present illness Narrative* Lev Thompson LPN - 01/22/2024 11:22 AM EDT DATE OF SERVICE: 01/25/2024 PROBLEM: Mary Leal presents for pre-op teaching. PRE-OP DIAGNOSIS: urinary urgency SCHEDULED SURGERY AND DATE: 01-26-24 [facility] INSRT NSTIM GENERATOR BLADDER W/ POCKET CREATE AND CONNECT BTWN ELCTRD ARRAY AND PULSE GENERATOR OR RECVR, IMPLANT STIMULATOR LEAD(S) BLADDER INCISIONAL APPROACH, and FLUOROSCOPIC GUIDANCE/LOCALIZATION OF NEEDLE/CATHETER TIP FOR DIAG OR THERAPUETIC SPI NE/PARASPINOUS INJECTION PROCEDURES PRIMARY SURGEON: Dr. Pam Wang NURSING PREOP ASSESSMENT: Fevers, chills, cough, or nasal congestion: No Vaginal itching, burning, discharge, or odor: No Pain with urination, frequency, urgency, cloudy or foul smelling urine: No If yes to any of the above then MD notified: Not Applicable ADVANCED CARE PLANNING: Does the patient have an advanced directive: No Does [facility] have a copy of the patient's advanced [...] material provided and reviewed with patient: Written pre-opand post-op instructions Antibacterial soap: patient will buy Pre-operative instructions provided and reviewed with patient/family: No eating, drinking, or smoking after midnight prior to surgery unless otherwise directed No alcohol the day before surgery Medications as prescribed by anesthesia, internal medicine, surgeon, or NEGATIVE TURNER Stop NSAIDs, Aspirin (ASA), vitamins, herbal supplements, [...] jewelry, body piercing, makeup, contacts, lotions, nail wallisian on fingers, or anything in hair on arrival to surgery Wear low healed shoes and loose fitting clothing Leave all valuables at home or with a family member Directions to [facility] Parking/parking validation on the day prior to [...] number given to patient, if after hours patientinstructed to call card tape converter operator and ask for vocational rehabilitation counselor master technician resident. DENISA program offered to patient: Yes [...] None Educator: Lev Thompson LPN [facility] Angela documented in this encounterBarney Children'S Medical Center03-18-2024 Instructions* Patient Instructions* Lev Thompson LPN - 01/22/2024 11:22 AM EDT UROGYNECOLOGY PHYSICIAN CONTACT INFORMATION During business hours, these numbers connect to your doctor s office. During the evening and weekends, these numbers will connect you to the answering service to speak with the doctor vocational rehabilitation counselor. Dr. Pam Wang After hours phone number: or toll free Ask the card tape converter operator to page the 'master technician vocational rehabilitation counselor.' Surgery Scheduling Office: Call the day before [...] THESE MEDICATIONS 7 DAYS PRIOR TO SURGERY: (Motrin/ibuprofen/Naproxen/Aleve/Advil), Aspirin, vitamin E, herbal medications, diet pills, and juhd-puo-cgjrajg medications. Tylenol (acetaminophen) is okay. I will not wear jewelry, body piercing(s), makeup, nail wallisian, hairpins, or contacts on the day ofsurgery. I am to leave valuables and money [...] my surgeon. Discuss medication changes with your food products tester or primary care physician as well. If I stopped taking my blood-thinning medication, I will ask the surgeon when to resume taking it. If I am an outpatient, a responsible person will drive me home and it was suggested that someone stay with me for 24 hours. I understand that a business planner or cabdriver is NOT a responsible caregiver. Patients with diabetes,I will not take my morning diabetes medication (pills) on the morning of surgery. If I am on insulin, someone has gone over those instructions with me for the morning of surgery. I understand if my surgery is delayed, I will notify the check in desk that I have diabetes. See the Diabetic GuidelinesBefore Surgery in the patient education section. If I have Obstructive Sleep Apnea and use a CPAP/BiPAP machine, I will bring my mask, tubing, and machine with me on the day of surgery. To find out my arrival time for surgery, I must call my surgical scrub technologist after 2pm the day before surgery. PREOP INSTRUCTIONS THE DAY OF SURGERY/CHECK IN Report to DESK J1-9 for surgery. A map is located in Your Surgical Guide Book. The online version of the surgical guide book can be found at: [email or web address] The address is [address] [place], [place] [id number] INFECTION PREVENTION Please notify your doctor if you have any signs of an infection (i.e. fever, severe cough, nasal congestion, pain with urination, abnormal vaginal discharge, diarrhea, etc). Your surgeon will let you know if a bowel prep is needed before your surgery. If so, please see theattached instructions. Shower the night before surgery AND [...] solution called Chlorhexidine Gluconate (CHG) which will beprovided to you on arrival to the preop [...] Your Surgical Guide Book for more information. [facility] TEAM At the [facility], we have a multidisciplinary team of caregivers that includes fellows, residents, nurse practitioners, physician assistants, clinical nurse specialists, nurses, medical assistants, patient care nursing assistants, social workers, case management rn and many others. We all have different [...] the prescribed acetaminophen (Tylenol) and ibuprofen (Motrin) asdirected. We recommend rotating the timing of these [...] MyChart for post-surgery concerns. documented in this encounterBarney Children'S Medical Center03-06-2024 History of Present illness Narrative* Cullen Dawkins MD - 01/10/2024 12:45 PM EST [facility] [address] [place] [address], [address] [facility] [id number] SUBJECTIVE: Patient ID (1970): Mary Leal is [...] carcinoma (BCC) of chest 04/04/2023 Bipolar disorder ([facility]) Chronic interstitial cystitis 04/06/2023 Chronic sinusitis 07/07/2022 [...] Performed by Noman Mayo MD at [facility] ENDOSCOPY EGD, DILATATION N/A 09/25/2020 Performed by Noman Mayo MD at [facility] ENDOSCOPY ENDOSCOPIC DIAGNOSTIC DRUG INDUCED SLEEP Bilateral 09/19/2023 Performed by Cullen Dawkins MD at [facility] SURGERY FOOT SURGERY 06/25/2020 left foot surgery FOOT SURGERY Right 10/2022 and 05/2023 HYSTERECTOMY 2015 LASER LINGUAL TONISILLECTOMY Circumferential 07/08/2021 Performed by Alexei Avila MD PhD at [facility] MRI FOOT LEFT NECK SURGERY 2017 PLANTAR FASCIECTOMY RELEASE PHARYNGEAL SCAR CPT 12311 Circumferential 07/08/2021 Performed by Alexei Avila MD PhD at [facility] RESECTION SUBMUCOSAL NASAL Bilateral 02/11/2021 Performed by Alexei Avila MD PhD at [facility] ROTATOR CUFF REPAIR Right SEPTOPLASTY Circumferential 02/11/2021 Performed by Alexei Avila MD PhD at [facility] TONSILLECTOMY Bilateral 02/11/2021 Performed by Alexei Avila MD PhD at [facility] TOTAL COLECTOMY 03/2022 uvuloplasty N/A 02/11/2021 Performed by Alexei Avila MD PhD at [facility] Family [...] in the morning. Indications: gastroesophageal reflux disease. slwipqdwwqr-bnhyjxsws-gtyxzszt (TRELEGY ELLIPTA) 100-62.5-25 mcg blister with device [...] mg 2.5 mg nebulization PRN Gwendolyn Stroud APRN-CHEERLEADING COACH REVIEW OF SYSTEMS: Review of Systems Data [...] Diagnoses and all orders for this visit: CHUKCIE (obstructive sleep apnea) Incision lines healing nicely No evidence of infection Follow up with Dr. Christensen of sleep medicine for device activation. Please note that parts of this chart were generated using voice recognition [employer] [employer] dictation software. Although every effort was made to ensure the accuracy of this automated crossband layer, some errors in crossband layer may have occurred. Iam Siddiqi 01/10/24 0753 documented in this encounterCleveland Clinic [facility]03-06-2024 Instructions* Patient Instructions* Cullen Dawkins MD - 01/10/2024 12:45 PM EST Images from the original note were not included. Based on today's evaluation, I recommend: No further tests or treatment at this time. I recommend that you follow up with me: as needed. I recommend that you sign up for MY CHART so that I can send you test results and communicate otherinformation pertaining to the management of your health care. The instructions to gain access to [employer] are at the bottom of this summary. If you are not signed up for access to MY CHART and have not received notification of ANY test result within 7 days, please call [phone] to leave a request for your results. During normal business hours, Dr. Dakwins and the other health care providers are treating patients in the office or performing surgery, so this will require a follow up telephone call from a health care provider. If youhave not been contacted about your test results, do not assume that your test results are normal. If you need to schedule a test such as a CT scan, Ultrasound, MRI or PET scan, please call [employer] Central Scheduling at [phone]. If you need to be scheduled for surgery, please call Aiden Augustin Surgery Coordinator at [phone], or Lazara at [phone] or our main number [phone] if you have not received a return [...] days before planned surgery: stop taking Non-Steroidal Anti- Inflammatory Drugs (NSAIDs) and certain herbal and weight loss products. (Note: the medications listed are selective and do not include all medications that affect bleeding.) You may need to stop taking aspirin one week (7 days) before planned surgery Please read below Aspirin (and medications that contain aspirin): Many non-prescription (mbnb-zxs-sgxugbm or OTC) medications contain aspirin. If you are unsure whether a medication you take has aspirin, please ask your pharmacist or your surgeon's office. You must ask your surgical team if they want you to continuetaking, or stop taking aspirin before your procedure. Medications containing aspirin that should be stopped 7 days before surgery: Juliet-Vining Anacin Aspirin Fiorinal Ascriptin Carlos Bufferin Lortab [...] L-carnosine Licorice Kava kava Milk thistle Multivitamin [place]-3 Resveratrol Skullcap Montrose's wort Vitamin E Adipex (phentermine) Glenn (orlistat) Hydroxycut Garcinia Cambogia Raspberry Ketones Bsxffads-F-51 should be stopped 14 days before surgery You will receive specific instructions regarding your insulin and anti-coagulant/anti-platelet medications (if applicable). documented in this encounterCleveland Clinic Union Hospital02-21-2024 Miscellaneous Notes* Telephone Encounter - Aiden Augustin - 12/27/2023 10:12 AM EST PATIENT NOTIFIED WITH SURGERY TIME OF 11:00. TOLD TO ARRIVE 2 HOURS PRIOR. documented in this [facility] [id number] Telephone encounter Note* Telephone Encounter - Aiden Augustin - 12/27/2023 10:12 AM EST PATIENT NOTIFIED WITH SURGERY TIME OF 11:00. TOLD TO ARRIVE 2 HOURS PRIOR. [facility] [employer] [id number] Miscellaneous Notes* Telephone Encounter - Stacie Gonzalez RN - 12/25/2023 3:02 PM EST See MC message A message has been routed to the provider Closing Stacie Gonzalez RN * Telephone Encounter - Denisse Mcintyre - 12/25/2023 2:14 PM EST Reason for call: other - Provider name: Dr Wang Additional comments: patient will have inspire inserted for sleep apena. She is also having surgeryfor bladder stem, she would like to know can she have both inserted into her body? Recommendation: routed to nurse triage pool Last visit in this department: Visit date not found Last distance health visit in this department: 10/25/2021 Restaurant General Manager, Nurse Next visit in this department: 01/25/2024 documented in this encounterBarney Children'S Medical Center02-14-2024 History and physical note * Vilma Sutton APRN-CHEERLEADING COACH - 12/20/2023 11:45 AM EST PRE-ADMISSION TESTING HISTORY AND PHYSICAL EXAM DATE: 12/20/23 PCP: ELICEO GÓMEZ JR, DO CHIEF COMPLAINT: CHUCKIE (obstructive sleep apnea) HISTORY OF PRESENT ILLNESS: Mary Leal, a 53 y.o. White or female, presents to [facility] for a pre- surgical H&P for a planned insertion of hypoglossal nerve stimulator. She complains of CHUCKIE. She states she was diagnosed about 5 years ago. She has been unable to tolerate the Cpap. PAST MEDICAL HISTORY: Past Medical History: Diagnosis Date ADD (attention deficit disorder) Allergic rhinitis 11/16/2015 Anxiety Asthma Atopic dermatitis 04/09/2020 Basal cell carcinoma (BCC) of chest 04/04/2023 Bipolar disorder ([facility]) Chronic interstitial cystitis 04/06/2023 Chronic sinusitis 07/07/2022 [...] Performed by Noman Mayo MD at [facility] ENDOSCOPY EGD, DILATATION N/A 09/25/2020 Performed by Noman Mayo MD at [facility] ENDOSCOPY ENDOSCOPIC DIAGNOSTIC DRUG INDUCED SLEEP Bilateral 09/19/2023 Performed by Cullen Dawkins MD at [facility] FOOT SURGERY 06/25/2020 left foot surgery FOOT SURGERY Right 10/2022 and 05/2023 HYSTERECTOMY 2015 LASER LINGUAL TONISILLECTOMY Circumferential 07/08/2021 Performed by Alexei Avila MD PhD at [facility] MRI FOOT LEFT NECK SURGERY 2017 PLANTAR FASCIECTOMY RELEASE PHARYNGEAL SCAR CPT 73650 Circumferential 07/08/2021 Performed by Alexei Avila MD PhD at [facility] RESECTION SUBMUCOSAL NASAL Bilateral 02/11/2021 Performed by Alexei Avila MD PhD at [facility] ROTATOR CUFF REPAIR Right SEPTOPLASTY Circumferential 02/11/2021 Performed by Alexei Avila MD PhD at [facility] TONSILLECTOMY Bilateral 02/11/2021 Performed by Alexei Avila MD PhD at [facility] TOTAL COLECTOMY 03/2022 uvuloplasty N/A 02/11/2021 Performed by Alexei Avila MD PhD at [facility] FAMILY [...] mg total) by mouth in the morning. Indications:high blood pressure., Disp: , Rfl: celecoxib (CeleBREX) [...] Indications: gastroesophageal reflux disease., Disp: , Rfl: uzovuresdpq-gqcxknlxa-ylzcyjyp (TRELEGY ELLIPTA) 100-62.5-25 mcg blister with device, Inhale 1 puffin the morning., Disp: 60 each, Rfl: 5 [...] 2.5 mg, nebulization, PRN, Gwendolyn Nicole Stroud, MARKET STALL VENDOR-CHEERLEADING COACH REVIEW OF SYSTEMS: Review of Systems Constitutional: [...] the most recent lab values available in [facility] at the time ofthe office visit and additional labs may have been drawn since that time. ASSESSMENT / DIAGNOSIS: CHUCKIE (obstructive sleep apnea) PLAN: Mary Leal is scheduled for Insertion Stimulator Nerve Hypoglossal - Right with Dr. Dawkins on01/02/2024. STELLA Duron 12/20/23 1240 [facility]02-14-2024 History and physical note* STELLA Duron - 12/20/2023 11:45 AM EST PRE-ADMISSION TESTING HISTORY AND PHYSICAL EXAM DATE: 12/20/23 PCP: ELICEO GÓMEZ JR, DO CHIEF COMPLAINT: CHUCKIE (obstructive sleep apnea) HISTORY OF PRESENT ILLNESS: Mary Leal, a 53 y.o. White or female, presents to [facility] for a pre- surgical H&P for a planned insertion of hypoglossal [...] Performed by Noman Mayo MD at [facility] ENDOSCOPY EGD, DILATATION N/A 09/25/2020 Performed by Noman Mayo MD at [facility] ENDOSCOPY ENDOSCOPIC DIAGNOSTIC DRUG INDUCED SLEEP Bilateral 09/19/2023 Performed by Cullen Dawkins MD at [facility] FOOT SURGERY 06/25/2020 left foot surgery FOOT SURGERY Right 10/2022 and 05/2023 HYSTERECTOMY 2015 LASER LINGUAL TONISILLECTOMY Circumferential 07/08/2021 Performed by Alexei Avila MD PhD at [facility] MRI FOOT LEFT NECK SURGERY 2017 PLANTAR FASCIECTOMY RELEASE PHARYNGEAL SCAR CPT 93649 Circumferential 07/08/2021 Performed by lAexei Avila MD PhD at [facility] RESECTION SUBMUCOSAL NASAL Bilateral 02/11/2021 Performed by Alexei Avila MD PhD at [facility] ROTATOR CUFF REPAIR Right SEPTOPLASTY Circumferential 02/11/2021 Performed by Alexei Avila MD PhD at [facility] TONSILLECTOMY Bilateral 02/11/2021 Performed by Alexei Avila MD PhD at [facility] TOTAL COLECTOMY 03/2022 uvuloplasty N/A 02/11/2021 Performed by Alexei Avila MD PhD at [facility] FAMILY [...] mg total) by mouth in the morning. Indications:high blood pressure., Disp: , Rfl: celecoxib (CeleBREX) [...] Indications: gastroesophageal reflux disease., Disp: , Rfl: ntlosnfqgrf-lbkvemoxz-pzjknqom (TRELEGY ELLIPTA) 100-62.5-25 mcg blister with device, Inhale 1 puffin the morning., Disp: 60 each, Rfl: 5 [...] 2.5 mg, nebulization, PRN, Gwendolyn Stroud, MARKET STALL VENDOR-CHEERLEADING COACH REVIEW OF SYSTEMS: Review of Systems Constitutional: [...] the most recent lab values available in [facility] at the time ofthe office visit and additional labs may have been drawn since that time. ASSESSMENT / DIAGNOSIS: CHUCKIE (obstructive sleep apnea) PLAN: Mary Leal is scheduled for Insertion Stimulator Nerve Hypoglossal - Right with Dr. Dawkins on01/02/2024. STELLA Duron 12/20/23 1240 [facility] Instructions* Patient Instructions* Earlene Whalen RN - 12/20/2023 11:45 AM EST Your surgery/procedure is scheduled at [facility] on 01/02/2024 Arrival Time Surgeon will call [facility] Address: [address] [place] [address], [address] [place] [address] in the Emergency Center Parking lot. Report to the front end alignment specialist in the Emergency/Surgery Registration lobby of the hospital. Please call Pre-Admission Clinic at [phone] if you have any questions prior to surgery. For questions the morning of surgery, please call the Pre-op Department at [phone]. Notify your SURGEON if you develop any [...] specifically instructed by your surgeon to stop. STOPtaking all herbal products/teas one week prior to [...] would like to schedule therapy at a [facility] facility, please call [phone] ([phone]). Do not use lotions, creams, powders, perfume, make up, cologne or after-shaves day of surgery. Remove ALL jewelry including wedding rings, body piercings, hair extensions that contain metal, nail wallisian, make-up, and contact lens. You may brush your teeth the morning of surgery, but do not swallow the water. Wear your dentures and partial plates to the hospital (no adhesive). Shower the night the before. If applicable, use the CHG (chlorhexidine gluconate) soap or wipes. Please be advised, [facility] has transitioned to a cashless payment system. What should I bring to the hospital? If you received a green plastic bracelet, bring it with you the day of surgery and your nurse will put it on you. Eyeglass or contact lens case If you will be spending the night, please bring personal care items and leave them in the car untilyou are taken to your room after surgery. [...] following some types of surgeries involving the eyes,ears, sinuses and throat. Always follow your doctor's [...] RIGHTS AND RESPONSIBILITIES As a patient at [facility], you have the right to: Receive medical care and be informed of who is taking care of you Be treated with dignity and respect Have a family member/account representative of choice and your physician notified of your admission Receive information and actively participate in decisions about your care and treatment Refuse care, treatment and services Decide who may provide your support and speak for you Access roman catholic and spiritual services Participate in ethical issues [...] of hospital charges and payment methods Patient/patient account representative responsibilities are to: Provide information about [...] Germs live on your skin. This special soapwill help lower the amount of germs so [...] skin to hard. Be sure to wash thearea of your surgery very well. If showering, [...] surgery in clean clothes. documented in this encounterC[facility]24 NoteHNO ID: [id number] Author: PAM WANG MD Service: ? Author [...] for interstim stages 1/2 in the OR. aPm Wang MD ATTESTATION By signing my name [...] my personal performance and is accurate and complete.[facility]01-03-2024 Miscellaneous Notes* Telephone Encounter - Emily Zamora - 11/08/2023 3:40 PM EST NURTEC PENDING WITH TEJADA [id number] documented in this encounterC[facility]24 Telephone encounter Note* Telephone Encounter - Emily Zamora - 11/08/2023 3:40 PM EST NURTEC PENDING WITH TEJADA [id number] [facility] [employer] [id number] NoteHNO ID: [id number] Author: Pam Wang MD Service: ? Author [...] Video-assisted cystourethroscopy was performed using a 19 Nigerien 70 and 30 degree rigid cystoscope with [...] and urethra PLAN: See progress note from todayAdams County Regional Medical Center12-05-2023 NoteHNO ID: [id number] Author: Pam Wang MD Service: ? Author [...] PFSH obtained by others. Pam Wang MD Graphic Production Artist offered: Patient declines. OBJECTIVE: BP 102/60 General: [...] would like to move forward with PNE. [employer] packet given to patient today to review. [...] which included preparing to see the patient, [id number] patient care, completing clinical documentation, obtaining and/or reviewing separately obtained history, performing a medically appropriate examination, counseling and educating the patient/family/caregiver, and communicating with other HCP (more content not included)...[facility]11-27-2023 Miscellaneous Notes * Telephone Encounter - Hardik Poe LPN - 10/02/2023 4:00 PM EST Patient was called to find out if there was another pharmacy to send her medication for Diflucan. Patient stated to disregard this medication. Patient stated that she does not need this medication now and that she will be visiting her PCP tomorrow (10/03/23) to address her sickness that she had before going to [place]. She states that she was going to ask her doctor for antibiotics at that time related to her illness. It was explained to patient to call the office if symptoms reoccur and that this encounter will be closed today. Patient states understanding and will call our office if any questions or concerns should arise at that time. Hardik Poe LPN * Telephone Encounter - Hardik Poe LPN - 09/29/2023 12:47 PM EST Medication requested: FLUCONAZOLE 150 MG TABLET MEREDITH: 09/27/2023 Doris Arias APRN.[facility] ([facility]) ASSESSMENT: Mary Leal is a 53 [...] patient to make office appointment for evaluation Pharmacy comment: Product Backordered/Unavailable:FLUCONAZOLE 150MG IS ON BACKORDER, FLUCONAZOLE 150MG AND 200MG ARE IN STOCK. Future OV: 10/10/2023 w/ Dr. Pam Wang documented in this encounterBarney [facility]11-22-2023 NoteHNO ID: [id number] Author: Doris Arias APRN.CHEERLEADING COACH Service: ? Author Type: Nurse Practitioner Type: [...] ache and some malodorous urine. Patient in [place], unable to come in for visit. 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 [...] to manage both OAB with leak and fecalincontinence as well as urinary retention. Discussed that [...] which included preparing to see the patient, gets-ze-tpnr patient care, completing clinical documentation, obtaining and/or reviewing separately obtained history,counseling and educating the patient/family/caregiver, ordering medications, tests, [...] and a strong desire at 20 cc, ableto fill to 220 cc, detrusor overactivity is present. No leakage noted. Initial attempt to void was at 81 cc with inability to void but there was rise in Pdet to about 20. Voiding phase: Pdet max of 53, Q max of 12, PVR 69 EMG: No abnormal activity noted Assessment: Small capacity bladder with evidence of DO. Elevated detrusor pressure with voiding andlow flow consistent with obstruction Will discuss case with referring provider, may benefit from sling incision +/- discussion of SNM 09/12/[address] Wang: OUTGOING TELEPHONE CALL Telephone call to discuss results UDS results Discussed that would recommend cystoscopy and then will review option of MUS sling incision versus PNE/Interstim. Office will call to schedule cystoscopy. Urogynecology [facility] Main provided: Pam Wang Staff Physician, Department of Urogynecology and Pelvic Floor Disorders Worsening frequency and urgency of urination. Is a urine culture indicated? Please review/advise Lex Vieyra RN documented in this encounterBarney Children'S [facility] Center11-06-2023 NoteHNO ID: [id number] Author: Jairon Lia MD Service: ? Author Type: Physician Type: Progress Notes Filed: 09/11/2023 1:18 PM Note Text: [facility] [...] Pdet to void lower flow Jairon Lai [facility]11-06-2023 NoteHNO ID: [id number] Author: Phil Beckford MD Service: ? Author [...] benefit from sling incision +/- discussion of [facility]10-07-2023 Emergency department Note* Avelino Scott RN - 08/12/2023 7:35 AM EDT Discharge, follow up, referral, and prescription information reviewed and explained; all questions and concerns addressed. Patient A/Ox3 in NAD, resp. easy unlabored upon discharge, escorted to exit by staff. [facility]10-07-2023 Emergency department Note* Avelino Scott RN - 08/12/2023 7:35 AM EDT Discharge, follow up, referral, and prescription information reviewed and explained; all questions and concerns addressed. Patient A/Ox3 in NAD, resp. easy unlabored upon discharge, escorted to exit by staff. * Monserrat Scales RN - 08/12/2023 7:05 AM EDT Report to Les GAMBINO * Lev Ritter APRN CNP - 08/12/2023 4:29 AM EDT Images from the original note were not included. ED Diagnosis and Summary 1. Upper abdominal pain ED Summary History Chief Complaint Patient presents with Abdominal Pain Past Medical, Family, Social, and or Surgical history in nursing notes, reviewed and included. Patient's medications and allergies were reviewed and updated as appropriate. Patient's medications, allergies, past medical, surgical, social and family histories were reviewedand updated as appropriate. Past Medical History: Diagnosis [...] sleep. She states that she had a g nawing/burning pain in the epigastric region. She states that she noted she was wheezing after the pain started. She has a history of asthma and states that she did take her Trintellix inhaler this morning with improvement of her wheezing. She endorses nausea, but denies any episodes of emesis. Shedenies any diarrhea or constipation. She denies any fevers or chills. She denies any falls, injuries , or accidents which may have contributed to [...] gastroparesis, gastroenteritis, acute cholecystitis, pancreatitis, less likely NH The patient's initial and delta troponin are negative. EKG does not demonstrate any ischemic changes. Low suspicion for NH. Her urinalysis is negative for UTI. Urine [...] fluids, morphine, Zofran, IV Tylenol, and a GIcocktail were given to the patient with improvement of her symptoms. I do suspect a GERD flare as the etiology of her symptoms today. The patient is already taking a proton pump inhibitor at home daily. Pepcid and Carafate were added to her medication regimen. She is safe for discharge home with outpatient follow-up. She was instructed to call her patient coordinator and PCP to schedule follow-up appointments. She was instructed to return to the emergency department if she has any new or worsening symptoms. Patient agreeable plan of care. Return precautions discussed at bedside. Spoke with Dr. Salmon regarding patient. Physician to complete their own physical exam and evaluation. Collaboration performed between this MAGAZINE DESIGNER and physician regarding patient's plan of care. [...] following orders were created for panel order [place] Draw. Procedure Abnormality Status --------- ------ Gold Top[[id number]] Final result LIGHT BLUE TOP[[id number]] Final result Dark Green Top[[id number]] Final result Please view results for these tests on the individual orders. GOLD TOP LIGHT BLUE TOP DARK GREEN TOP TROPONIN I Records reviewed: Urogynecology telemedicine visit 08/07/2023 ENT visit 07/11/2023 Family medicine visit 07/06/2023 Lev Ritter APRN CHEERLEADING COACH 08/12/23 0723 * Jaren Lopez RN - 08/12/2023 4:21 AM EDT Emily at bedside * Moisés Duke RN - 08/12/2023 12:24 AM EDT Ambulates to triage with C/O sudden epigastric gnawing, burning pain that woke her from sleep. Alsoreports wheezing. States nausea. Denies fever. Alert. Respirations easy and unlabored. Skin PWD. NAD noted. documented in this [facility]10-07-2023 Hospital Discharge instructions* Discharge Instructions* Lev Ritter APRN CNP - 08/12/2023 7:14 AM EDT Please call your primary care provider to schedule follow-up appointment. If you do not have one, please call the patient access center to establish care. If you develop any new or worsening symptoms including worsening pain or fevers, please return to the emergency department for reevaluation. * Attachments The following attachments cannot be sent through Care Everywhere. * Abdominal Pain (Solomon Islander Welsh) documented in this [facility]10-07-2023 Emergency department Note* Monserrat Scales RN - 08/12/2023 7:05 AM EDT Report to Les GAMBINO [facility]10-07-2023 Physician Emergency department Note* Lev Ritter APRN CNP - 08/12/2023 4:29 AM EDT Images from the original note were not included. ED Diagnosis and Summary 1. Upper abdominal pain ED Summary History Chief Complaint Patient presents with Abdominal Pain Past Medical, Family, Social, and or Surgical history in nursing notes, reviewed and included. Patient's medications and allergies were reviewed and updated as appropriate. Patient's medications, allergies, past medical, surgical, social and family histories were reviewedand updated as appropriate. Past Medical History: Diagnosis [...] sleep. She states that she had a g nawing/burning pain in the epigastric region. She states that she noted she was wheezing after the pain started. She has a history of asthma and states that she did take her Trintellix inhaler this morning with improvement of her wheezing. She endorses nausea, but denies any episodes of emesis. Shedenies any diarrhea or constipation. She denies any fevers or chills. She denies any falls, injuries , or accidents which may have contributed to [...] gastroparesis, gastroenteritis, acute cholecystitis, pancreatitis, less likely NH The patient's initial and delta troponin are negative. EKG does not demonstrate any ischemic changes. Low suspicion for NH. Her urinalysis is negative for UTI. Urine [...] fluids, morphine, Zofran, IV Tylenol, and a GIcocktail were given to the patient with improvement of her symptoms. I do suspect a GERD flare as the etiology of her symptoms today. The patient is already taking a proton pump inhibitor at home daily. Pepcid and Carafate were added to her medication regimen. She is safe for discharge home with outpatient follow-up. She was instructed to call her patient coordinator and PCP to schedule follow-up appointments. She was instructed to return to the emergency department if she has any new or worsening symptoms. Patient agreeable plan of care. Return precautions discussed at bedside. Spoke with Dr. Salmon regarding patient. Physician to complete their own physical exam and evaluation. Collaboration performed between this MAGAZINE DESIGNER and physician regarding patient's plan of care. [...] following orders were created for panel order [place] Draw. Procedure Abnormality Status --------- ------ Gold Top[[id number]] Final result LIGHT BLUE TOP[[id number]] Final result Dark Green Top[[id number]] Final result Please view results for these tests on the individual orders. GOLD TOP LIGHT BLUE TOP DARK GREEN TOP TROPONIN I Records reviewed: Urogynecology telemedicine visit 08/07/2023 ENT visit 07/11/2023 Family medicine visit 07/06/2023 Lev Ritter APRN CHEERLEADING COACH 08/12/23722 [facility]10-07-2023 Emergency department Note* Jaren Lopez RN - 08/12/2023 4:21 AM EDT Emily at bedside [facility]10-07-2023 Emergency department Triage note* Moisés Duke RN - 08/12/2023 12:24 AM EDT Ambulates to triage with C/O sudden epigastric gnawing, burning pain that woke her from sleep. Alsoreports wheezing. States nausea. Denies fever. Alert. Respirations easy and unlabored. Skin PWD. NAD noted. [facility]10-02-2023 NoteHNO ID: [id number] Author: Pam Wang MD Service: ? 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 She has no history of an abnormal mammogram with cysts on US LMP: No LMP recorded. Patient has had a hysterectomy.; Menopause 3 years ago; hysterectomy in 2015: Menstrual history: NA; Deliveries: I have confirmed and edited as necessary, the PFSH obtained by others. Pam Wang MD Graphic Production Artist offered: Patient declines. OBJECTIVE (Virtual) There were [...] which included preparing to see the patient, kxzz-yo-[id number] patient care, completing clinical documentation, obtaining and/or reviewing separately obtained history, counseling and educating the patient/family/caregiver, ordering medications, tests, or procedures, and communicating with other HCPs (not separately reported). Pam Wang, [facility]09-25-2023 NoteHNO ID: [id number] Author: Nelsy Chávez APRN.CHEERLEADING COACH Service: ? Author Type: Nurse Practitioner Type: [...] new Pain: no Abnormal 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 She has no history of an abnormal mammogram with cysts on US LMP: No LMP recorded. Patient has had a hysterectomy.; Menopause 3 years ago; hysterectomy in 2015: Menstrual history: NA; Deliveries: I have confirmed and edited as necessary, the PFSH obtained by others. Nelsy Chávez APRN.CHEERLEADING COACH Graphic Production Artist offered: Patient declines. OBJECTIVE: There were no [...] which included preparing to see the patient, piqh-qg-imqx patient care, completing clinical documentation, performing a medically appropriate examination, counseling and educating the patient/family/caregiver and ordering medications, tests, or procedures.[facility]09-[facility] History of Present illness Narrative* Nelsy Chávez APRN.CHEERLEADING COACH - 07/31/2023 2:16 PM EDT Female Pelvic Medicine & Reconstructive Surgery [...] new Pain: no Abnormal 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 She has no history of an abnormal mammogram with cysts on US LMP: No LMP recorded. Patient has had a hysterectomy.; Menopause 3 years ago; hysterectomy in 2015:Menstrual history: NA; Deliveries: I have confirmed and edited as necessary, the PFSH obtained by others. Nelsy Chávez APRN.CHEERLEADING COACH Graphic Production Artist offered: Patient declines. OBJECTIVE: There were no vitals taken for this visit. General: Well appearing, alert, in no acute distress, well-hydrated, well nourished. and tearful attimes Abdomen: Abdomen soft, non-tender Pelvic: Ext. Genitalia: [...] year ago and her mother has severe cognitivedecline d/t Alzheimers. She is seeing a counselor regularly. Will likely need repeat UDS to re-eval bladder function, and FU with Dr. Wang to discuss results+ next steps. Of note, has had intradetrusor Botox in the past (prior to surgery); she believes shereceived 100U and did not think this was helpful Plan: Will rout to Dr. Wang as FYI and coordinate follow up Pt opts to stop Myrbetriq for now d/t side effects Nelsy Chávez APRN.KWESI I spent a total of 45 minutes on the date of the service which included preparing to see the patient, gkzg-ip-fvcn patient care, completing clinical documentation, performing a medically appropriate examination, counseling and educating the patient/family/caregiver and ordering medications, tests, or procedures. documented in this encounterBarney [facility] Evaluation [facility]* Encounter Date Diagnosis Assessment Notes Treatment Notes Treatment Clinical Notes Apr, Cervical spondylosis without myelopathy (ICD-10 [...] (ICD-10 - G89.29) Apr, Other Above note writ ten by Wanda Yang LPN, Elementary Teacher. Edited and approved by Dr. Beto Snyder MD. [facility] Other 06-06-2023 Miscellaneous Notes* Telephone Encounter - Serenity Joseph MA - 04/11/2023 10:19 AM EDT MEREDITH=10/11/22 Spoke with patient she does need a refill Medication pended please file Rx request if appropriate Patient and pharmacy verified documented in this encounterBarney [facility]05-15-2023 Miscellaneous Notes* Telephone Encounter - Regina Philippe - 03/20/2023 2:50 PM EDT Should patient follow up via virtual visit to discuss further? * Telephone Encounter - Steffi Ross LPN - 03/20/2023 10:20 AM EDT Patient's stool tests came back normal. Steffi Ross LPN documented in this encounterBarney [facility]04-18-2023 NotePROCEDURE: XR ANKLE RT MIN [...] Electronically authenticated by: ZAIDA ACOSTA Date: 2023-02-21 10:15[facility]04-18-2023 NotePROCEDURE: XR ANKLE RT MIN 3 [...] Electronically authenticated by: ZAIDA ACOSTA Date: 2023-02-21 10:15[facility]03-28-2023 NotePROCEDURE: XR FOOT RT MIN 3 [...] Electronically authenticated by: ZAIDA ACOSTA Date: 2023-01-31 11:55[facility]03-16-2023 Miscellaneous Notes* Telephone Encounter - Jennie Moreno RN - 01/19/2023 2:17 PM EDT Please review and advise patient. documented in this encounterBarney [facility]03-13-2023 Miscellaneous Notes* Telephone Encounter - Mounika Roberto PA-C - 01/16/2023 1:08 PM EDT Patient was scheduled for virtual PACC appt at 1300 today. Patient did not check in for visit. Called patient at [phone] to see if they needed any assistance logging in and left voicemail. This message routed to PACC schedulers to contact patient to reschedule PACC appt. Mounika Roberto PA-C January 16, 2023 1:09 PM documented in this encounterBarney [facility]03-13-2023 History and physical note * Mounika Roberto PA-C - 01/16/2023 1:00 PM EDT This is a virtual visit using beatlabt video visit. It required patient-provider interaction for themedical decision making as documented below. I have communicated my name and active licensure. The patient's identity and physical location wereverified at the time of this visit. Either the patient or their legal account representative has been informed of the risks [...] in the AM and 4 mg PM szuhkvafuqy-wghtppezg-rhplrmrk (TRELEGY ELLIPTA) 100-62.5-25 mcg Inhale 1 Puff [...] 16, 2023 12:36 PM documented in this encounterBarney [facility]03-13-2023 Instructions* Patient Instructions* Mounika Roberto PA-C - 01/16/2023 12:38 PM EDT PATIENT PREOPERATIVE INSTRUCTIONS Winston Hannah DO has scheduled you for your procedure at this surgery center: [facility]: [phone] - [facility], [facility] [address]. Please read below carefully for your personalized [...] Procedures: - YOU MUST HAVE A RESPONSIBLE PRIVACY SPECIALIST TAKE YOU HOME. A HYDROGENATION OPERATOR OR MOTOR VEHICLE PARTS INTERPRETER CANNOT BE MADE A RESPONSIBLE PRIVACY SPECIALIST. - We recommend that a responsible [...] Advance Directive, please fax a copy to [phone] or email to for it to be [...] day. Mounika Roberto PA-C documented in this encounterBarney [facility]03-08-2023 Miscellaneous Notes* Telephone Encounter - Berta Ann RN - 01/11/2023 9:47 AM EST Procedure pended for 02/08/23. Pt aware of need for PACC. Pre-op instructions reviewed, will send to pt's MC, per pt request. Postop appt scheduled. No other questions at this time. Berta HENSON, RN Specialty Reports Analyst documented in this encounterBarney [facility]03-07-2023 History of Present illness Narrative* Winston Hannah DO - 01/10/2023 9:09 AM EST Images from the original note were not included. [facility] Angela Gastroparesis/Dysmotility Follow Up This encounter was provided [...] of care. NAME: Mary Leal CLINIC NO: [id number] CHIEF COMPLAINT Idiopathic Gastroparesis HISTORY OF PRESENT [...] Normal gastric transit Normal small bowel transit [id number] transit in the distal bowel consistent delay [...] (FLONASE) 50 mcg/actuation nasal spray Use 1 Lynd in each nostril once daily. carBAMazepine XR [...] THE LUNGS every 4 hours if needed ypcdzdkqlej-ujnkxtvjm-hhqdabdr (TRELEGY ELLIPTA) 100-62.5-25 mcg Inhale 1 Puff [...] dialysis. No history of symptoms or problems. KEYING MACHINE OPERATOR: Negative for abnormal vaginal bleeding, [...] and plan of care. documented in this encounterBarney [facility]02-23-2023 Miscellaneous Notes* Addendum Note - Yoni Tuttle MD - 12/29/2022 3:37 PM ESTAddended by: YONI TUTTLE MD on: 12/29/2022 03:37 PM Modules accepted: Orders documented in this encounterBarney [facility]02-20-2023 History of Present illness Narrative* Rosmery Booker, RT(R) - 12/26/2022 3:00 PM EST [...] 26, 2022 3:17 PM documented in this encounterBarney [facility]02-17-2023 Miscellaneous Notes* Telephone Encounter - Erica Serrano RN - 12/23/2022 4:36 PM EST Message being addressed in another encounter that was forwarded to provider documented in this encounterBarney [facility]02-16-2023 History of Present illness Narrative* Winston Hannah DO - 12/22/2022 8:52 AM EST Images from the original note were not included. [facility] Angela Gastroparesis/Dysmotility Follow Up This encounter was provided [...] completed esophagram NAME: Mary Leal CLINIC NO: [id number] CHIEF COMPLAINT Idiopathic Gastroparesis HISTORY OF PRESENT [...] chicken spaghetti etc. Duration of symptoms (months): 8413-0337 Weight changes in last 3 months: Stable [...] Normal gastric transit Normal small bowel transit 94gv27hjf transit in the distal bowel consistent delay [...] (FLONASE) 50 mcg/actuation nasal spray Use 1 Lynd in each nostril once daily. carBAMazepine XR [...] THE LUNGS every 4 hours if needed vdocjhlrqbl-bknrgkegs-zugskelg (TRELEGY ELLIPTA) 100-62.5-25 mcg Inhale 1 Puff [...] dialysis. No history of symptoms or problems. KEYING MACHINE OPERATOR: Negative for abnormal vaginal bleeding, [...] and plan of care. documented in this encounterBarney [facility]02-15-2023 NotePROCEDURE: XR FOOT RT MIN [...] Electronically authenticated by: ZAIDA ACOSTA Date: 2022-12-21 12:24[facility]02-09-2023 History of Present illness Narrative* Mary Obrien MD - 12/15/2022 8:40 AM EST COLORECTAL SURGERY December 15, 2022 Mary Leal Virtual Visit Chief Complaint: follow up/ pelvic floor dysfuntion History of Present Illness: Mary Zoya Leal [...] in the AM and 4 mg PM jyvivroumts-mynymfmxt-ekawcxwe (TRELEGY ELLIPTA) 100-62.5-25 mcg Inhale 1 Puff [...] which included preparing to see the patient, uxfl-xk-fzhw patient care, completing clinical documentation, obtaining and/or reviewing separately obtained history, counseling and educating the patient/family/caregiver, ordering medications, quincy ts, or procedures, communicating with other HCPs (not separately reported), independently interpreting results (not separately reported), communicating results to the patient/family/caregiver, and care coordination (not separately reported). Mary Obrien MD Colorectal Surgery documented in this encounterBarney [facility]02-08-2023 Miscellaneous Notes* Telephone Encounter - Emily Benton RN - 12/14/2022 5:19 PM EST Several attempts to reach pt unsuccessful - MC sent. * Telephone Encounter - Barber Marie - 12/02/2022 8:39 AM EST SLEEP PHONE Name of caller: Mary Leal Relationship to patient : Self In-state or gcq-xc-sxdkn patient: In-State Was permission obtained from patient? Yes Patient identified by Name and Date of . ( Mary Keys Elvis, 1970). Yes Reason for Call : Patient said her and Emily was chatting through my chart and Emily calledher about 5:15 yesterday. Number to return call [phone] Okay to leave a message ? Yes Last office visit 10/14/[address] Kusum vines Next office visit 01/13/[address] Tuttle virtual documented in this encounterBarney [facility]02-06-2023 Miscellaneous Notes* Telephone Encounter - Jet Wong RN - 12/12/2022 9:[address] Obrien sent my chart message to respond to this phone encounter and previous my chart message. * Telephone Encounter - Madyson Villanueva [facility] - 12/09/2022 3:22 PM EST Patient called and left message regarding post operative 03/2022 total laparoscopic colectomy and concerns regarding symptoms and follow up testing return call to [phone] documented in this encounterBarney [facility]02-03-2023 Miscellaneous Notes* Telephone Encounter - [...] patient Summary: As noted Concerns: Procedure results Reports Analyst plan for next outreach: Will follow up Signature Nelsy Gilmore RN December 08, 2022 documented in this encounterBarney [facility]01-30-2023 Nurse Note* Lisa Contreras RN - 12/05/2022 1:05 PM EST [facility] ENDOSCOPY PRE PROCEDURE CALL Akiko. I'm calling from [facility] endoscopy to provide you with the information for your surgery/procedure tomorrow. Spoke to: Patient CONFIRM Procedure Planned with patient:Esophagogastroduodenoscopy(EGD) with or without biopies based on clinical findings, removal of polyps or lesions Are you familiar with where [facility] is located?yes Address [address] [facility] Patient instructed to enter through the main hospital entrance off [address] through the revolving doors and check in at the main desk with your otr hazmat company driver's license and insurance card.yes When anesthesia or sedation is being given: Patient instructed you must have an adult otr hazmat company driver because you will not be able to work or drive for the rest of the day after your test.yes Can you please confirm the name and relationship of your otr hazmat company driver. tbd What is the best number for your otr hazmat company driver to be reached at tomorrow for updates? tbd Your otr hazmat company driver is allowed to wait here with [...] Do not wear makeup, lotion, or finger wallisian. yes Patient instructed: Please bring a list [...] given Any barriers to Patient learning (confusion? Snow Fence Erector needed?): Patient/Patient Supervisor Metal Hanging responded appropriately on phone. If patient needs to reschedule please call: [phone] [facility] phone number: [phone] Type of instruction given: Verbal by telephone contact. documented in this encounterBarney [facility]01-27-2023 Nurse Note* Isra Harman RN - 12/02/2022 10:48 AM EST [facility] ENDOSCOPY PRE PROCEDURE CALL Akiko. I'm calling from [facility] endoscopy to provide you with the information for your surgery/procedure tomorrow. Spoke to: Patient CONFIRM Procedure Planned with patient: Are you familiar with where [facility] is located?yes Address [facility] Patient instructed to enter through the main hospital entrance off [address] at [address] through the revolving doors and check in at the main desk with your otr hazmat company driver's license and insurance card.yes When anesthesia or sedation is being given: Patient instructed you must have an adult otr hazmat company driver because you will not be able to work or drive for the rest of the day after your test.yes Can you please confirm the name and relationship of your otr hazmat company driver. Rich What is the best number for your otr hazmat company driver to be reached at tomorrow for updates? [phone] Your otr hazmat company driver is allowed to wait here with [...] be done on Monday.) Did you pick up driver your bowel prep pt calling office [...] Do not wear makeup, lotion, or finger wallisian. yes Patient instructed: Please bring a list [...] given Any barriers to Patient learning (confusion? Snow Fence Erector needed?): Patient/Patient Supervisor Metal Hanging responded appropriately on phone. If patient needs to reschedule please call: [phone] [facility] phone number: [phone] Type of instruction given: Verbal by telephone contact. documented in this encounterBarney [facility]01-26-2023 NotePROCEDURE: XR FOOT RT MIN [...] Electronically authenticated by: ZAIDA ACOSTA Date: 2022-12-01 11:42[facility]01-26-2023 NotePROCEDURE: XR FOOT RT MIN 3 [...] Electronically authenticated by: ZAIDA ACOSTA Date: 2022-12-01 11:42[facility]01-25-2023 History of Present illness Narrative* Isra [...] in the AM and 4 mg PM aylmtsbuspy-rqohiqqnm-jyxynjnz (TRELEGY ELLIPTA) 100-62.5-25 mcg Inhale 1 Puff [...] no edema RESPIRATORY: No dyspnea : neg KEYING MACHINE OPERATOR: neg The remainder of the [...] Isra Masters DO 11/30/2022 documented in this encounterBarney [facility]01-19-2023 Miscellaneous Notes* Telephone Encounter - Erica Serrano RN - 11/24/2022 3:20 PM EST This concern was addressed in the phone encounter on 11/24/22. Patient was called back and informed [employer] will complete Prior Authorization for her sleep study. documented in this encounterBarney [facility]01-19-2023 Miscellaneous Notes* Telephone Encounter - Erica Serrano [...] Relationship to patient : Self In-state or skp-ya-flupt patient: In-State Was permission obtained from patient? Yes Patient identified by Name and Date of . ( Mary Keys Elvis, 1970). Yes Reason for Call : Patient stated she spoke to her insurance and they told her that the provider need to call Deuce to see if a PA is needed for the PAP Titration. Number to return call [phone] Okay to leave a message ? Yes Last office visit 10/14/[address] Tuttle virtual Next office visit None documented in this encounterBarney [facility]01-19-2023 History of Present illness Narrative* Isra Masters DO - 11/24/2022 8:29 AM EST Images from the original note were not included. SmartPill Test Report - [id number] Test start date: 11/17/2022 10:03 AM Manager Pediatric: josephine Interpretation date: 11/24/2022 Ordering physician: Isra Masters DO Referring physician: Patient Information Name: Denver Lealjose Feldman. ID: [id number] date: 1970 Height ft. in.: 5' 4 [...] Normal gastric transit Normal small bowel transit [id number] transit in the distal bowel consistent delay post anastomosis Signature _Dr. Masters Date _11/24/2022 documented in this encounterBarney [facility]01-17-2023 Miscellaneous Notes* Telephone Encounter - Regina Philippe - 11/22/2022 3:37 PM EST Patient calling to verify that Smart Pill monitor was received at [facility]. Monitor was sent via [employer] on 11/19/22. Patient is requesting a confirmation. documented in this encounterBarney [facility]01-16-2023 Miscellaneous Notes* Telephone Encounter - Erica Serrano RN - 11/21/2022 9:11 AM EST [employer] message sent to patient. Prior Sleep study forwarded to to review, Order pended for PAP-titration for provider to review and sign if necessary. documented in this [facility]01-16-2023 History and physical note * Yodit Back PA-C - 11/21/2022 8:00 AM EST PREANESTHESIA CONSULT CLINIC TELEHEALTH VISIT Patient has been identified by name and date of : Yes This is a virtual visit using [employer] video visit. It require patient-provider interaction for [...] in the AM and 4 mg PM edyncbyzupr-sslsdliui-eqjtirfz (TRELEGY ELLIPTA) 100-62.5-25 mcg Inhale 1 Puff as instructed once daily. No current facility-administered medications for this visit. COVID VACCINATION STATUS: Fully vaccinated REVIEW OF SYSTEMS: Pain Assessment: General: No weight loss, malaise or fevers. Neuro: No history of TIA's, stroke, CYBER FORENSIC SPECIALIST tumor, impaired sensorium, hemiplegia, paraplegia or quadraplegia. [...] requiring medication, no history of angina, CHF, NH, cardiac surgery or stents. Denies rest pain, gangrene or revascularization/amputation for PVD. No history of cardiovascular symptoms or problems. + HLD GI: See HPI : No history of dysuria, frequency or incontinence,, stones or chronic kidney disease KEYING MACHINE OPERATOR: Negative for abnormal vaginal bleeding, [...] 8:07 AM PAGER/CONTACT #: documented in this encounterBarney [facility]01-12-2023 Miscellaneous Notes* Addendum Note - Yoni Tuttle [...] - 11/02/2022 12:33 PM EST Received from [facility] Sleep Laboratory Report via fax. 8 pages indexed to chart. documented in this encounterBarney [facility]01-12-2023 History of Present illness Narrative* Annmarie Gillespie [...] complete. You will be wearing a Data Alliance Manager around your neck like a necklace during the test. You must keepthis near you at all times. The Data Alliance Manager has an EVENT button. You will [...] is inside your body. Return the Data Alliance Manager to the [facility] after your test is completed. Brittanie Gillespie RN documented in this encounterBarney [facility] Center01-09-2023 NotePROCEDURE: XR FOOT RT MIN 3 VIEWS [...] Electronically authenticated by: ZAIDA ACOSTA Date: 2022-11-14 10:39[facility]01-05-2023 NotePROCEDURE: XR FOOT RT MIN 3 [...] Electronically authenticated by: NICKI DACOSTA Date: 2022-11-10 11:44[facility]01-05-2023 Miscellaneous Notes* Telephone Encounter - Annmarie Gillespie RN - 11/10/2022 9:07 AM EST Telephoned patient with [employer] procedure appointment reminder/instructions. Brittanie Gillespie RN documented in this encounterBarney [facility] Center01-04-2023 Miscellaneous Notes* Telephone Encounter - Regina Philippe [...] to make it legit. documented in this encounterBarney [facility] Center01-04-2023 Miscellaneous Notes* Telephone Encounter - Wali Doll - 11/09/2022 9:47 AM EST SENT PATIENTS RX TO PREFERRED LOCATION [facility] [phone] Wali Doll CMA documented in this encounterBarney [facility] Center01-03-2023 Miscellaneous Notes* Telephone Encounter - Regina Philippe - 11/08/2022 11:15 AM EST Per Soumya in provider services at [facility]. No prior auth is needed,coverage is active, patient can proceed with Smart Pill. Placed a new referral. Call Ref # [id number] * Telephone Encounter - Regina Philippe - 11/02/2022 3:51 PM EST Spoke with patient. Smart Pill is a covered benefit. Sent email to Smart Pill sugar drier and [facility] to assist in scheduling Smart Pill [...] procedure, she can call Earlene Martin at [phone]. documented in this encounterBarney [facility] Center12-19-2022 Miscellaneous Notes* Telephone Encounter - Steffi Ross [...] calling: self Call patient at: at home [phone] (home) [phone] (cell) Closing statement: Symptom Call: Thank you for calling [facility], your call is very important. A nurse will call in approximately 2-4 hours during business hours. If this is an emergency, please contact 911. Nati Martinez documented in this encounterBarney [facility] Center12-13-2022 Miscellaneous Notes* Telephone Encounter - Brooklyn Valle LPN - 10/18/2022 2:43 PM EST Requested Prescriptions Pending Prescriptions Disp Refills Dexlansoprazole 60 mg CpDM [Pharmacy Med Name: DEXLANSOPRAZOLE DR 60 MG CAP] 30 capsule 5 Sig: take 1 capsule by mouth before breakfast Patient last seen 10/11/2022 documented in this encounterBarney [facility] Center12-12-2022 NotePROCEDURE: XR FOOT RT MIN [...] Electronically authenticated by: NICKI DACOSTA Date: 2022-10-17 18:06[facility]12-12-2022 NotePROCEDURE: XR FOOT RT MIN 3 [...] Electronically authenticated by: NICKI DACOSTA Date: 2022-10-17 18:06[facility]12-12-2022 Miscellaneous Notes* Telephone Encounter - Wali Lavon - 10/17/2022 9:17 AM EST Faxed order, office notes, demographics, and sleep study to: DME name: [facility] fax: [phone] [facility] ph: ALSO [facility] [place] documented in this encounterBarney [facility] Center12-06-2022 History of Present illness Narrative* Isra Masters, [...] (FLONASE) 50 mcg/actuation nasal spray Use 1 Lynd in each nostril once daily. carBAMazepine XR (TEGRETOL XR) 400 mg 12 hr tablet Take 400 mg by mouth q 12 HR. ARIPiprazole (ABILIFY) 30 mg tablet Take 30 mg by mouth once daily. albuterol HFA (PROVENTIL HFA, VENTOLIN HFA) 90 mcg/actuation inhaler inhale 2 puffs by mouth INTO THE LUNGS every 4 hours if needed cflybhdccxw-mzulruozr-iaimarmb (TRELEGY ELLIPTA) 100-62.5-25 mcg Inhale 1 Puff [...] no edema RESPIRATORY: No dyspnea : neg KEYING MACHINE OPERATOR: neg The remainder of the [...] Isra Masters DO 10/11/2022 documented in this encounterBarney [facility] Center12-05-2022 Evaluation note* Encounter Date Diagnosis [...] for rotator cuff healing or recurrent tear [facility] Other 12-01-2022 Evaluation note* Encounter Date Diagnosis [...] note writ ten by Wanda Yang LPN, Elementary Teacher. Edited and approved by Dr. Beto Snyder MD. [facility] Other 11-17-2022 Evaluation note* Encounter Date Diagnosis [...] educated regarding the risks and benefits of jail opioid use. She understands the associated risks [...] note writ ten by Lupillo Amezquita MA, Elementary Teacher. Edited and approved by Dr. Beto Snyder MD. [facility] Other 11-17-2022 Evaluation note* Encounter Date Diagnosis Assessment Notes Treatment Notes Treatment Clinical Notes Sep, Lumbosacral spondylosis without myelopathy (ICD-10 - M47.817) [facility] Other 11-09-2022 Evaluation note* Encounter Date Diagnosis [...] note writ ten by Wanda Yang LPN, Elementary Teacher. Edited and approved by Dr. Beto Snyder MD. [facility] Other 09-21-2022 NotePROCEDURE: XR ANKLE RT MIN 3 VIEWS, XR FOOT RT MIN 3 VIEWS COMPARISON: 01/06/2021 HISTORY: Pain of right ankle joint FINDINGS: BONES:Remote osteotomy head of the first metatarsal fixed with a single screw. No acute fracture or dislocation. SOFT TISSUES:Negative. No visible soft tissue swelling. EFFUSION:None visible. OTHER: Negative. IMPRESSION: No acute abnormality Electronically authenticated by: NICKI DACOSTA Date: 2022-07-27 19:[address] [place], [place] 2752709-21-2022 NotePROCEDURE: XR ANKLE RT MIN 3 VIEWS, XR FOOT RT MIN 3 VIEWS COMPARISON: 01/06/2021 HISTORY: Pain of right ankle joint FINDINGS: BONES:Remote osteotomy head of the first metatarsal fixed with a single screw. No acute fracture or dislocation. SOFT TISSUES:Negative. No visible soft tissue swelling. EFFUSION:None visible. OTHER: Negative. IMPRESSION: No acute abnormality Electronically authenticated by: NICKI DACOSTA Date: 2022-07-27 19:[address] [place], [place] 2752709-20-2022 Miscellaneous Notes* Telephone Encounter - Silvia Ybarra - 07/26/2022 2:56 PM EDT PA for Dexlansoprazole initiated electronically. Awaiting response [employer] ID# [id number] * Telephone Encounter - Tracy ANDRES - 07/26/2022 1:43 PM EDT Patient needs a prior authorization Medication Order name: Dexlansoprazole 60 mg CpDM Medication: DEXLANSOPRAZOLE 60 MG CAPSULE,BIPHASE DELAYED RELEASE [[id number]] Dispense as Written: No documented in this encounterBarney Children'S Medical Center09-20-2022 History of Present illness Narrative* [...] in the AM and 4 mg PM rgepkffmkem-pqmvytblz-neezsqsf (TRELEGY ELLIPTA) 100-62.5-25 mcg Inhale 1 Puff [...] (FLONASE) 50 mcg/actuation nasal spray Use 1 Lynd in each nostril once daily. carBAMazepine XR [...] which included preparing to see the patient, fsia-oe-qbwr patient care, completing clinical documentation, obtaining and/or reviewing separately obtained history, performing a medically appropriate examination, counseling and educating the pat ient/family/caregiver, ordering medications, tests, or procedures, and care coordination (not separately reported). Mary Obrien MD Colorectal Surgery documented in this encounterBarney [facility]'S [facility] Center09-20-2022 Nurse Note* Re Sierra MA [...] Temperature: No Drains: No documented in this encounterBarney Children'S Medical Center08-04-2022 NotePROCEDURE: In the coronal projection, [...] and signed by Quinton Carson on 06/09/2022 [facility]08-02-2022 Miscellaneous Notes* Telephone Encounter - Raquel Mullen - 06/07/2022 3:34 PM EDT Patient needs RX [facility] to [facility]. The previous was sent [...] process accordingly. Raquel Mullen documented in this encounterBarney Children'S Medical Center07-21-2022 Evaluation note* Encounter Date Diagnosis [...] note writ ten by Lupillo Amezquita MA, Elementary Teacher. Edited and approved by Dr. Beto Snyder MD. [facility] Other 07-05-2022 Evaluation note* Encounter Date Diagnosis [...] Patient care instructions given in writing by [facility] document. [facility] Other [id number] Miscellaneous Notes* Telephone Encounter - Jet Wong [...] concerns at this time. documented in this encounterBarney Children'S Medical Center06-21-2022 Miscellaneous Notes* Telephone Encounter - Jet Wong [...] procedure on 03/28. Thanks! documented in this encounterBarney Children'S Medical Center06-17-2022 History of Present illness Narrative* Jessi Sheets APRN.CHEERLEADING COACH - 04/22/2022 12:20 PM EDT COLORECTAL SURGERY [...] (FLONASE) 50 mcg/actuation nasal spray Use 1 Lynd in each nostril once daily. carBAMazepine XR [...] THE LUNGS every 4 hours if needed qbsidnhsbqb-zikjncpql-odpldqvu (TRELEGY ELLIPTA) 100-62.5-25 mcg Inhale 1 Puff [...] complications of treatment plan: low Jessi Sheets APRN.CHEERLEADING COACH Colorectal Surgery documented in this encounterBarney Children'S Medical Center06-17-2022 Nurse Note* Mary Mena MA - 04/22/2022 12:06 PM EDT .What is the reason for your visit today? Post op Who is your referring physician? Self Are you having poor oral intake? NO Have you had unintentional weight loss of 15 lbs/7 Kg in the last 3-6 months? NO Bowels: regular Wound: none Temperature: No Drains: No documented in this encounterBarney Children'S Medical Center06-02-2022 Miscellaneous Notes* Telephone Encounter - Rachael - 04/07/2022 12:35 AM EDT Record ID: [id number] Patient name: Mary Leal Date: April 06, [...] likely is it that you would recommend [facility] to a friend or family member? -> likely Please tell me what you liked best about your hospital experience: -> The nurses documented in this encounterBarney Children'S Medical Center05-31-2022 NoteHNO ID: [id number] Author: Pravin Ladd MD Service: Colorectal Author Type: Resident Type: Progress Notes Filed: 04/05/2022 7:52 AM Note Text: COLORECTAL SURGERY PROGRESS NOTE Mary Leal [id number] ASSESSMENT AND PLAN Mary Leal is a [...] - General Pravin Ladd MD General Surgery residentBarnstable County HospitalOzfyqjdw08-90-3732 NoteHNO ID: [id number] Author: Nita Lamas MD Service: Colorectal Author Type: Fellow Type: Progress Notes Filed: 04/04/2022 9:40 AM Note Text: COLORECTAL SURGERY PROGRESS NOTE Mary Leal [id number] ASSESSMENT AND PLAN Mary Leal is a [...] Lamas MD Colorectal Fellow 04/04/2022 9:40 [facility]05-29-2022 NoteHNO ID: [id number] Author: Pravin Ladd MD Service: Colorectal Author Type: Resident Type: Progress Notes Filed: 04/03/2022 8:03 AM Note Text: COLORECTAL SURGERY PROGRESS NOTE Mary Leal [id number] ASSESSMENT AND PLAN Mary Leal is a [...] - General Pravin Ladd MD General Surgery ResidentBarnstable County HospitalLjiijvfg91-56-9178 NoteHNO ID: [id number] Author: Nancy Cadena MD Service: Colorectal Author Type: Resident Type: Progress Notes Filed: 04/02/2022 8:34 AM Note Text: COLORECTAL SURGERY PROGRESS NOTE Mary Leal [id number] ASSESSMENT AND PLAN Mary Leal is a [...] Nancy Cadena MD General Surgery Resident, PGY-2 [id number] [id number] NoteHNO ID: [id number] Author: Nancy Cadena MD Service: Colorectal Author [...] 2022 COLORECTAL SURGERY PROGRESS NOTE Mary Leal [id number] ASSESSMENT AND PLAN Mary Leal is a [...] Nancy Cadena MD General Surgery Resident, PGY-2 [id number] [id number] NoteHNO ID: [id number] Author: Yolanda Lamb MD Service: Colorectal Author Type: Resident Type: Progress Notes Filed: 03/31/2022 9:08 AM Note Text: COLORECTAL SURGERY PROGRESS NOTE Mary Leal [id number] ASSESSMENT AND PLAN Mary Leal is a [...] RESECTION AND ANASTOMOSIS - General Yolanda Lamb MDBarnstable County HospitalKcpzxtjb29-92-7366 NoteHNO ID: [id number] Author: Pravin Ladd MD Service: Colorectal Author [...] 30, 2022 COLORECTAL SURGERY PROGRESS NOTE Mary D Elvis [id number] ASSESSMENT AND PLAN Mary Leal is a 51 year old female with PMHx Asthma, HTN, BPD, Dyslipidemia and colonic inertia who is now s/p Hand assisted TAC, EI takedown + OANH 03/28 - D/C URBAN SOCIOLOGIST - Advance to GI soft diet - [...] RESECTION AND ANASTOMOSIS - General Pravin Ladd MDBarnstable County HospitalRmtarobz31-77-9437 NoteHNO ID: [id number] Author: ELIZABETH Dias Service: Care Management Author Type: Highway Engineer Type: Care Mgt Initial Assessment Filed: 03/29/2022 [...] time ADVANCE DIRECTIVES Current Advance Directive: None Rn Imaging Attempted to Assist with AD Completion: Yes [...] Housing Stability: Not on file PATIENT SCREEN Patient/Supervisor Metal Hanging Stated Goals: To be cured/healed Under the [...] March 29, 2022 TIME: 3:45 PM PHONE: [phone] Hecqbftm52-93-2704 NoteHNO ID: [id number] Author: Pravin Ladd MD Service: Colorectal Author Type: Resident Type: Progress Notes Filed: 04/01/2022 5:50 AM Note Text: COLORECTAL SURGERY PROGRESS NOTE Mary Leal [id number] ASSESSMENT AND PLAN Mary Leal is a 51 year old female with PMHx Asthma, HTN, BPD, Dyslipidemia and colonic inertia who is now s/p Hand assisted TAC, EI takedown + OANH 03/28 - URBAN SOCIOLOGIST for pain control - Magnesium replacement for [...] RESECTION AND ANASTOMOSIS - General Pravin Ladd MDBarnstable County HospitalWvqdkove72-24-3549 NoteHNO ID: [id number] Author: Nathanael Craig DO Service: Anesthesiology Author Type: Anesthesiologist Type: Anesthesia Procedure Notes Filed: 03/28/2022 4:16 PM Note Text: ANESTHESIOLOGY PROCEDURE NOTE Peripheral Nerve Block General Information Procedure Start Time/Medication Administration: 03/28/2022 3:50 PM Procedure End time: 03/28/2022 3:55 PM Patient location during procedure: OR Timeout Performed Pre-procedure: timeout performed Consent Obtained: Yes 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: care food service team member and arm band Reason [...] 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 and care food service team member Reason for block: post-op [...] March 28, 2022 TIME: 4:14 PM CSN: [id number] [id number] NoteHNO ID: [id number] Author: Carmen Stanley APRN.BICYCLE COURIER Service: Anesthesiology Author Type: Nurse Ski Molder Type: Anesthesia Procedure Notes Filed: 03/28/2022 9:49 AM Note Text: ANESTHESIOLOGY PROCEDURE NOTE Airway General Information Procedure Start Time/Medication Administration: 03/28/2022 9:21 AM Patient location during procedure: OR 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, care food service team member and patient Staffing BICYCLE COURIER: Carmen Stanley APRN.BICYCLE COURIER Performed by: BICYCLE COURIER Indications and Patient Condition Preoxygenated: yes Difficult [...] March 28, 2022 TIME: 9:49 AM CSN: [id number] [id number] NoteHNO ID: [id number] Author: Carmen Stanley APRN.CRNA Service: Anesthesiology Author Type: Nurse Ski Molder Type: Anesthesia Procedure Notes Filed: 03/28/2022 9:49 [...] March 28, 2022 TIME: 9:48 AM CSN: [id number] [id number] Miscellaneous Notes* Telephone Encounter - Jet Wong [...] colon. Would like a call back at [phone] documented in this encounterBarney Children'S Medical Center05-10-2022 Miscellaneous Notes* Telephone Encounter - Jennie Moreno RN - 03/15/2022 2:39 PM EDT Outside medical record EGD H Pylori biopsy received by fax. Scanned into [facility] under scanned documents. Hard copy handed to Dr. Masters. Per Dr Masters- please call patient and let her know the H Pylori biopsy is negative. Called patient . Message relayed. No questions at this time. * Telephone Encounter - Karthikeyan Turk RN - 03/15/2022 2:21 PM EDT Called [facility] and I was transferred to medical records. Requesting a cover sheet with the request result be faxed to them at [phone]. H Pylori result request faxed with confirmation. * Telephone Encounter - Karthikeyan Turk RN - 03/15/2022 2:21 PM EDT Images from the original note were not included. DO Leo Mariano Sp Dd Clinical Pool Please contact [facility] [phone] to see if the H pylori biopsy is back yet from her EGD there documented in this encounterBarney Children'S Medical Center05-10-2022 Evaluation note* Encounter Date Diagnosis [...] note writ ten by Wanda Yang LPN, Elementary Teacher. Edited and approved by Dr. Beto Snyder MD. [facility] Other 05-10-2022 Miscellaneous Notes* Telephone Encounter - Silvia Ybarra - 03/15/2022 1:24 PM EDT PA for Dexilant renewal initiated through [facility]. Awaiting response ID# [id number] Rx BIN [id number] Rx PCN MCAIDOH Rx Grp [id number] documented in this encounterBarney Children'S Medical Center05-10-2022 Miscellaneous Notes* Telephone Encounter - Jet Wong RN - 03/15/2022 9:28 AM EDT She called the office with complaints of dark red blood in her ostomy bag for the last 2 weeks. [place]. She had an EGD in [place] that showed gastritis. She followed up with [...] concerns at this time. documented in this encounterBarney Children'S Medical Center05-10-2022 History of Present illness Narrative* Isra Masters, [...] seem be musculoskeletal in nature.EGD done in [facility] showed some gastritis and duodenitis. Current [...] (FLONASE) 50 mcg/actuation nasal spray Use 1 Lynd in each nostril once daily. carBAMazepine XR [...] THE LUNGS every 4 hours if needed feirkvtmstw-mawybnylg-zzunbyyx (TRELEGY ELLIPTA) 100-62.5-25 mcg Inhale 1 Puff [...] no edema RESPIRATORY: No dyspnea : neg KEYING MACHINE OPERATOR: neg The remainder of the [...] Isra Masters DO 03/15/2022 documented in this encounterBarney Children'S Medical Center05-09-2022 Instructions* Patient Instructions* Urmila Alexander APRN.CHEERLEADING COACH - 03/14/2022 10:43 AM EDT PATIENT PREOPERATIVE INSTRUCTIONS Mary Obrien MD has scheduled you for your procedure at this [facility]: [phone] --[address] [address]. Please check in on the1st floor at [...] Procedures: - YOU MUST HAVE A RESPONSIBLE PRIVACY SPECIALIST TAKE YOU HOME. A HYDROGENATION OPERATOR OR MOTOR VEHICLE PARTS INTERPRETER CANNOT BE MADE A RESPONSIBLE PRIVACY SPECIALIST. - We recommend that a responsible [...] Advance Directive, please fax a copy to [phone] or email to for it to be [...] your chart that day. documented in this encounterBarney Children'S Medical Center05-09-2022 History and physical note * [...] vaccine, age 12+ yr (PFIZER-BIONTECH - [facility]) CHIEF COMPLAINT: reverse ileostomy HPI: Pt. presenting [...] fevers. Neurological: No history of TIA's, stroke, CYBER FORENSIC SPECIALIST tumor, impaired sensorium, hemiplegia, paraplegia orquadraplegia. No [...] > 1 time per night or hematuria. KEYING MACHINE OPERATOR: Negative for abnormal vaginal bleeding, [...] every 4 hours if needed Taking Yes fcbqiarmpry-fsdniveof-bnbzvzsk (TRELEGY ELLIPTA) 100-62.5-25 mcg Inhale 1 Puff [...] (FLONASE) 50 mcg/actuation nasal spray Use 1 Lynd in each nostril once daily. No medication [...] or any previous visit (from the past 50313 hour(s)). EKG: Assessment HTN (hypertension) Assessment: Managed [...] of difficult airway No abnormal airway history NVL0IG3-DEHm Score: Age: <65 Sex: Female Hypertension history: [...] 10:30 AM PAGER/CONTACT #: documented in this encounterBarney Children'S Medical Center04-25-2022 Miscellaneous Notes* Telephone Encounter - [...] Monday, 03/02, at 0900 - routed to [place] to make it legit. Please advise. documented in this encounterBarney Children'S Medical Center04-15-2022 Instructions* Patient Instructions* Nelsy Chávez APRN.CNP - 02/18/2022 1:18 PM EDT Healing as expected from surgery. You have a pinpoint area of suture just under the vaginal epithelium surface that may need more time to fully heal. Please call the office if you would like to try vaginal estrogen cream or with any questions/concerns. documented in this encounterBarney Children'S Medical Center04-15-2022 History of Present illness Narrative* [...] no Pain: no Abnormal Vaginal Discharge: no KEYING MACHINE OPERATOR HISTORY: Last pap: cannot remember; Last mammogram: She has never had a mammogram LMP: No LMP recorded. Patient has had a hysterectomy.; Menopause n/a: Menstrual history: NA; Deliveries: I have confirmed and edited as necessary, the PFSH obtained by others. Nelsy Chávez APRN.CHEERLEADING COACH Graphic Production Artist offered: Patient declines. OBJECTIVE: There were no [...] if this helps. She is traveling to [place] to see her ailing father for two weeks and would like to wait for now to see if things resolve. She knows she can call the office if she changes her mind and would like to trial vaginal estrogen Nelsy Chávez APRN.KWESI documented in this encounterBarney Children'S Medical Center04-08-2022 History of Present illness Narrative* [...] 15 [facility] Bartholomew PT documented in this encounterBarney Children'S Medical Center04-05-2022 Nurse Note* Re Sierra MA [...] Temperature: No Drains: No documented in this encounterBarney Children'S Medical Center04-05-2022 History of Present illness Narrative* [...] (FLONASE) 50 mcg/actuation nasal spray Use 1 Lynd in each nostril once daily. carBAMazepine XR [...] THE LUNGS every 4 hours if needed ojdktiamqoc-jelypsbhj-haceromw (TRELEGY ELLIPTA) 100-62.5-25 mcg Inhale 1 Puff [...] medical complications of surgery including DVT/PE, PNA, NH, stroke, and . The patient understands these risks and is in agreement with proceeding. Medical Decision Making: Data Reviewed: Tests & Documents Reviewed/ordered: Review of prior notes from myself, OR, Dr. Wang Review of prior operative reports I have discussed Mary Leal's treatment plan and/or results with the patient. Mary Obrien MD Colorectal Surgery documented in this encounterBarney Children'S Medical Center04-05-2022 History of Present illness Narrative* Magali Mitchell, MARKET STALL VENDOR.CHEERLEADING COACH - 02/08/2022 11:04 AM EDT Female Pelvic [...] you received about pain medications helpful? Yes Graphic Production Artist offered:Patient declines OBJECTIVE: BP 113/76 Pulse 74 [...] 6 month Patient expressed understanding. Magali Mitchell APRN.CHEERLEADING COACH documented in this encounterBarney Children'S Medical Center03-29-2022 Miscellaneous Notes* Telephone Encounter - Steffi Ross LPN - 02/01/2022 11:08 AM EDT [facility] 06-10-21 Pharmacy and Rx request verified. Please file if appropriate. Thank you Steffi Ross LPN documented in this encounterBarney Children'S Medical Center03-28-2022 NoteHNO ID: [id number] Author: Newton Woodward, PT Service: ? Author Type: Physical Therapist Type: Progress Notes Filed: 01/31/2022 1:23 PM Note Text: Episode Visit Count: 3 Therapist That Will Oversee The Plan Of Care: Shital then transfer to [facility] Start of Care Date: 01/18/22 Onset Date: [...] to Home;Specialty Service Patient transferring care to: [facility] SUBJECTIVE: Patient Reason for Visit: lack of [...] untimed codes) : 40 Newton Woodward PT, [facility]03-28-2022 History of Present illness Narrative* Newton Woodward, [...] to Home;Specialty Service Patient transferring care to: [facility] SUBJECTIVE: Patient Reason for [...] Newton Woodward PT, DPT [place] [address]-21-2022 NoteHNO ID: [id number] Author: Newton Woodward, DILLAN Service: ? Author Type: Physical Therapist Type: Progress Notes Filed: 01/24/2022 1:23 PM Note Text: Episode Visit Count: 2 Therapist That Will Oversee The Plan Of Care: Shital then transfer to [facility] Start of Care Date: 01/18/22 Onset Date: [...] untimed codes) : 45 Newton Woodward PT, [facility]03-15-2022 NoteHNO ID: [id number] Author: Jessi Tovar PT Service: ? Author Type: Physical Therapist Type: Progress Notes Filed: 01/18/2022 1:56 PM Note Text: Episode Visit Count: 1 Therapist That Will Oversee The Plan Of Care: Shital then transfer to [facility] Start of Care Date: 01/18/22 Onset Date: [...] Planned: 8 Planned Treatment Interventions: Therapeutic exercise (35489);Neuromuscular re-education (80283);Manual therapy (92059);Therapeutic activities (09852);Self-long-term management (31264);Patient/Family/Caregiver Education PLAN FOR NEXT VISIT: PFM dynamics; biofeedback Patient demonstrates good understanding of plan of care and treatment. The above goals and plan of care were discussed and agreed upon by patient/family. Transfer of Care Due To: Closer to Home (patient to transfer in February 2022) Patient transferring care to: [facility] SUBJECTIVE: Mary Leal is [...] life. 52 (more content not included)...[facility] CenterLxapsntg98-50-8544 NoteHNO ID: [id number] Author: Moni Munguia RN Service: Care Management Author Type: Registered Nurse Type: Care Mgt Progress Note Filed: 12/27/2021 4:17 PM Note Text: CARE MANAGEMENT DISCHARGE NOTE SERVICE DATE: 12/27/2021 SERVICE TIME: 4:14 PM LOS: 3 days Admission Date: 12/24/2021 DISCHARGE ARRANGEMENT (list agency and phone number) Discharge Arrangement: Home with Home Health Provider Name: [facility] CAREGIVER ASSESSMENT: HANDOFF COMMUNICATION: Handoff to: Primary Care Physician Primary Care Physician Name/Phone: Eliceo Gómez Jr [phone] TRANSPORTATION ARRANGEMENTS: Transportation Arrangements: N/A The Pt is accepted by [facility] for new ostomy care. The SOC will be within 24 to 48 hrs. The pt will be contacted directly with the SOC. The Pt verbalized agreement with this dc plan. SIGNATURE: Moni Munguia RN PATIENT NAME: Mary Leal DATE: December 27, 2021 TIME: 4:14 PM PAGER/CONTACT #: [phone] Mfymggzf17-03-6775 NoteHNO ID: [id number] Author: Parish Celeste DO Service: Colorectal Author [...] - Pain and nausea control -> d/c URBAN SOCIOLOGIST - D/c entereg - Culturelle - Continue [...] 0659 12/27/21 07 - 12/28/21 0659 Shift 7694-1713 4605-2686 1532-9194 24 Hour Total 7240-3561 8226-4483 2051-2031 24 Hour Total INTAKE PO 60 60 PO 60 60 IV 2100 2100 Volume (mL) (lactated ringers iv infusion) 2099 2099 Shift Total 2160 2160 OUTPUT Urine 6340 335 2713 2300 200 200 Void (ml) 300 1000 1300 200 200 Output ( Indwelling Urinary Catheter 12/24/21 Call 16 Fr) 1000 1000 Emesis 0 0 Emesis (ml) 0 0 Ostomy 250 125 375 Ileostomy 1 250 125 375 # of BMs Number of BMs 0 x 0 x Shift Total 7600 478 3299 2675 200 200 Weight (kg) 82.1 82.1 82.1 82.1 82.1 82.1 82.1 82.1 Recent Labs 12/26/21 0755 12/25/21 0606 WBC -- 5.96 HB -- 11.6 HCT -- 35.2* PLT -- 271 NA 139 141 K 4.0 4.0 CHLOR 102 104 CO2 28 28 CREAT 0.62* 0.72 BUN 10 12 GLUC 71 91 CA 8.5 8.5 Parish Celeste DO General Surgery, PGY-4 [id number] After 6 pm and on the weekends please page [phone] 12-26-2021 NoteHNO ID: [id number] Author: Jenifer Ayala MD Service: Colorectal Author Type: Fellow Type: Progress Notes Filed: 12/26/2021 12:13 PM Note Text: GENERAL SURGERY PROGRESS NOTE Name: Mary Leal 12/26/2021 12:11 PM Interval Events: Patient doing well post-operatively. No acute events overnight. Tolerating CLD diet without nausea or vomiting. Stoma productive of bilious fluid + gas Pain well controlled with URBAN SOCIOLOGIST + oral pain medication (feels most relief from po oxycodone). Assessment and Plan: 51 year old female with pelvic organ prolapse and chronic constipation, likely slow transit but with possible component of pelvic outlet obstruction and with discordant testing. Patient underwent laparoscopic protopexy on 12/24/21 surgery was uneventful. Post-operative course has been uncompliacted. Pain control- Tylenol Gabapentin Toradol URBAN SOCIOLOGIST: Dilaudid, tegretol, klonopin, requip, trintellix, oxycodone Cardiac- [...] any questions or concerns page [facility] [id number] Objective Physical exam: BP 117/66 Pulse 77 [...] 0659 12/26/21 07 - 12/27/21 0659 Shift 8303-0498 8909-2422 0060-7502 24 Hour Total 6854-5657 0085-3352 6297-8524 24 Hour Total INTAKE PO 60 60 PO 60 60 IV 213 668 881 Volume (mL) (lactated ringers iv infusion) 213 668 881 Shift Total 273 668 941 OUTPUT Urine 015 766 6603 1000 Void (ml) 0 0 Output ( Indwelling Urinary Catheter 12/24/21 Call 16 Fr) 343 462 5520 1000 Emesis 0 0 Emesis (ml) 0 0 Ostomy 100 100 Ileostomy 1 100 100 # of BMs Number of BMs 0 x 0 x Shift Total 290 724 5363 1000 Weight (kg) 82.1 82.1 82.1 82.1 [...] Diagnosis Date Noted - Pelvic floor dysfunction 12/24/2021[facility] HospitalVmdgmvwr78-45-2526 NoteHNO ID: [id number] Author: Sonido Owen MD Service: Colorectal Author [...] been uncompliacted. Pain control- Tylenol Gabapentin Toradol URBAN SOCIOLOGIST: Dilaudid, tegretol, klonopin, requip, trintellix Cardiac- Vitals: [...] Owen MD General Surgery PGY 2 Pg [phone] For any questions or concerns page [facility] [id number] Objective Physical exam: BP 111/61 Pulse 86 [...] 0659 12/25/21 07 - 12/26/21 0659 Shift 3152-4754 0852-8962 4953-6325 24 Hour Total 2958-5984 5744-6048 4525-6279 24 Hour Total INTAKE PO 240 120 360 PO 240 120 360 IV 3100 3100 Volume (mL) (lactated ringers iv infusion) 1800 1800 Volume (mL) (lactated ringers iv infusion) 1300 1300 Shift Total 3100 813 639 9968 OUTPUT Urine 200 450 887 8133 OR Urine Output 200 200 Output ( Indwelling Urinary Catheter 12/24/21 Call 16 Fr) 300 500 800 Emesis 0 0 0 Emesis (ml) 0 0 0 Ostomy 0 0 0 Ileostomy 1 0 0 0 # of BMs Number of BMs 0 x 0 x 0 x Blood 50 50 Estimated Blood loss 50 50 Shift Total 250 455 572 8632 Weight (kg) 82.1 82.1 82.1 82.1 82.1 [...] Diagnosis Date Noted - Pelvic floor dysfunction 12/24/2021[facility] HospitalJvotzgqw85-31-0072 NoteHNO ID: [id number] Author: Carmen Stanley APRN.CRNA Service: Anesthesiology Author Type: Nurse Ski Molder Type: Anesthesia Procedure Notes Filed: 12/24/2021 8:44 [...] Imaging Guidance Used: No SIGNATURE: Carmen Stanley APRN.BICYCLE COURIER PATIENT NAME: Mary Leal DATE: December 24, 2021 TIME: 8:44 AM CSN: [id number] NoteHNO ID: [id number] Author: Carmen Stanley APRN.BICYCLE COURIER Service: Anesthesiology Author Type: Nurse Ski Molder Type: Anesthesia Procedure Notes Filed: 12/24/2021 8:44 AM Note Text: ANESTHESIOLOGY PROCEDURE NOTE Airway General Information Procedure Start Time/Medication Administration: 12/24/2021 8:22 AM Patient location during procedure: OR 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, care food service team member and patient Staffing Anesthesiologist: Chayito Ojeda MD BICYCLE COURIER: Carmen Stanley APRN.BICYCLE COURIER Performed by: BICYCLE COURIER and anesthesiologist Indications and Patient Condition Preoxygenated: [...] December 24, 2021 TIME: 8:43 AM CSN: [id number] [id number] Evaluation note* Encounter Date Diagnosis Assessment Notes [...] note writ ten by Lupillo Amezquita MA, Elementary Teacher. Edited and approved by Dr. Beto Snyder MD. [facility] [employer] [facility] Other 11-01-2021 Evaluation note* Encounter Date Diagnosis [...] note writ ten by Lupillo Amezquita MA, Elementary Teacher. Edited and approved by Dr. Beto Snyder MD. [facility] Other 10-14-2021 Evaluation note* Encounter Date Diagnosis [...] no improvement in 2 to 3 days. [facility] Other 10-08-2021 Evaluation note* Encounter Date Diagnosis [...] Patient care instructions given in writting by [facility] document [facility] Other 10-07-2021 Evaluation note* Encounter Date Diagnosis [...] Aug, Other chronic pain (ICD-10 - G89.29) [facility] Other 09-22-2021 Evaluation note* Encounter Date Diagnosis [...] Jul, Other chronic pain (ICD-10 - G89.29) [facility] Other 03-01-2021 Note [id number]:127[facility] 01-04-2021 NoteCystoscopy with Botox injection ? [...] if you have a fever over 100 degrees.[facility] 11-11-2020 NoteChief Complaint Pt is here [...] Francie BENSON, Dawna Feldman [address] [place] [address]- [phone] Additional Instructions: F/u in 1yr. Patient Education [...] deficit disorder Bipolar disorder (more content not included)...[facility] Comment on above:Result Comment: Electronically Signed By: Francie BENSON, Dawna Feldman\.br\Date and Time Signed: 11/11/2111:16 EST\.br\Electronically Co-Signed By: Christy Gill MA\.br\Date and Time Co-Signed: 11/11/20 12:07 [id number]:127[facility] Narrative - Reported* MARY LEAL is being seen for an initial evaluation of. * 52-year-old female seen in cardiology consultation at the request of her primary care physician forelevated troponin while in [facility] this past spring that was associated with a GI bleed/gastritis. * Patient recently underwent large bowel resection details of which are unknown and I suspect possibly consistent with ulcerative colitis but again unknown pathology. She had a diverting colostomy with3 anastomosis performed. While in [place] with her GI bleed and primarily gastric [...] * I believe minor troponin elevation in [place] was simply at small type II non- [place] troponin elevationrelated to inflammation and gastritis and [...] She can follow-up as needed otherwise. -[facility]-Ambrosio Lopez DO Work Phone: Evaluation note* Diagnosis Pelvic floor dysfunction- Primary Pelvic muscle wasting Lack of coordination Follow-up examination after colorectal surgery Follow-up examination, following other surgery documented in this encounter [facility] note* Diagnosis Gastroesophageal reflux disease, unspecified whether esophagitis present documented in this encounter [facility] note* Diagnosis Follow-up examination after colorectal surgery- Primary Follow-up examination, following other surgery documented in this encounter [facility] note* Diagnosis Post-operative state- Primary Other postprocedural status Yeast infection of the skin Candidiasis of skin and nails documented in this encounter [facility] note* Diagnosis Pelvic floor dysfunction- Primary Pelvic muscle wasting Lack of coordination Follow-up examination after colorectal surgery Follow-up examination, following other surgery documented in this encounter [facility] note* Diagnosis Postoperative state- Primary Other postprocedural status Attention to ileostomy ([facility]) Attention to ileostomy documented in this encounter [facility] note* Diagnosis Preop examination- Primary [...] Attention to ileostomy documented in this encounter [facility] note* Diagnosis Gastroesophageal reflux disease, unspecified whether esophagitis present Chronic idiopathic constipation Unspecified constipation Attention to ileostomy (HCC) Attention to ileostomy documented in this encounter [facility] note* Diagnosis Follow-up examination after colorectal surgery- Primary Follow-up examination, following other surgery Pelvic floor dysfunction Pelvic muscle wasting documented in this encounter [facility] noteNo InformationNothe rehabilitation institute [place] [facility] Other Evaluation noteNoQ-Layer Other Evaluation note* Diagnosis Follow-up examination after colorectal surgery- Primary Follow-up examination, following other surgery Periumbilical abdominal pain Abdominal pain, periumbilic Outlet dysfunction constipation Colonic inertia Other functional disorders of intestine [facility] assessment information availableOhiohealth Work Phone: Evaluation note* Diagnosis Gas bloat syndrome- Primary Chronic idiopathic constipation Unspecified constipation Gastroparesis [facility] Diagnosis Gastroesophageal reflux disease, unspecified whether esophagitis present [facility]* Diagnosis Gastroparesis- Primary [facility]* Diagnosis CHUCKIE (obstructive sleep apnea)- Primary Obstructive sleep apnea (adult) (pediatric) documented [facility]* Diagnosis Pre-op exam- Primary Preoperative examination, unspecified Primary hypertension Unspecified essential hypertension Mild persistent asthma without complication Unspecified asthma Gastroparesis CHUCKIE (obstructive sleep apnea) Obstructive sleep apnea (adult) (pediatric) documented [facility]* Diagnosis CHUCKIE (obstructive sleep apnea)- Primary Obstructive sleep apnea (adult) (pediatric) documented [facility]* Diagnosis Chronic idiopathic constipation- Primary Unspecified constipation Nausea Nausea alone [facility] Diagnosis Gastroesophageal reflux disease with esophagitis without hemorrhage- Primary [facility] Diagnosis Colonic inertia- Primary Other functional disorders of intestine Pelvic floor dysfunction Pelvic muscle wasting Nausea Nausea alone Gastroparesis [facility]* Diagnosis Pylorospasm- Primary Functional dyspepsia Dyspepsia and other specified disorders of function of stomach Gastroesophageal reflux disease with esophagitis without hemorrhage [facility]* Diagnosis Gastroesophageal reflux disease, unspecified whether esophagitis present [facility]* Diagnosis CHUCKIE (obstructive sleep apnea)- Primary Obstructive sleep apnea (adult) (pediatric) documented [facility]* Diagnosis Pylorospasm- Primary Functional dyspepsia Dyspepsia and other specified disorders of function of stomach Gastroesophageal reflux disease with esophagitis without hemorrhage [facility]* Diagnosis Gastroparesis- Primary [facility]* Diagnosis Preop examination- Primary Preoperative examination, unspecified Nausea Nausea alone CHUCKIE (obstructive sleep apnea) Obstructive sleep apnea (adult) (pediatric) Mild persistent asthma without complication Unspecified asthma Gastroesophageal reflux disease, unspecified whether esophagitis present Gastroparesis documented in this encounter [facility] note* Diagnosis 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 Personal history of other diseases of digestive system [facility]* Diagnosis Gastroesophageal reflux disease, unspecified whether esophagitis present [facility]* Diagnosis Incomplete bladder emptying- Primary Constipation, unspecified constipation type Urinary urgency Urgency of urination Urinary frequency Nocturia documented in this encounter [facility] note* Diagnosis Upper abdominal pain- Primary Abdominal pain, other specified site [facility] Diagnosis Burning with urination- Primary Dysuria documented in this encounter [facility] note* Diagnosis Bety vaginitis Candidiasis of vulva and vagina documented in this encounter [facility] note* Diagnosis Pre-op examination- Primary [...] urge Urge incontinence documented in this encounter [facility] note* Diagnosis Educational circumstances- Primary Educational circumstance Urinary urgency Urgency of urination Urinary frequency OAB (overactive bladder) Hypertonicity of bladder Urinary incontinence, urge Urge incontinence documented in this encounter [facility] note* Diagnosis Post-operative state- Primary Other postprocedural status [facility]* Diagnosis Procedure and treatment not carried out for other reasons- Primary documented in this encounter [facility] note* Diagnosis Post-operative state- Primary Other postprocedural status Vaginal burning Other specified symptom associated with female genital organs documented in this encounter [facility] note* Diagnosis Vaginal burning- Primary Other specified symptom associated with female genital organs [facility]* Diagnosis [place] grade D esophagitis Early satiety Unintentional weight loss Loss of weight Gastroparesis [facility] Diagnosis Gas bloat syndrome documented in this encounter [facility] note* Diagnosis Pain Generalized pain [...] apnea (adult) (pediatric) documented in this encounter [facility] note* Diagnosis Pre-op evaluation- Primary Preoperative examination, [...] apnea (adult) (pediatric) [facility] Diagnosis Chronic abdominal pain- Primary Abdominal pain, unspecified site Avoidant-restrictive food intake disorder (ARFID) Bloating Flatulence, eructation, and gas pain Gastroparesis [facility] Diagnosis Anxiety- Primary Anxiety state, unspecified documented in [facility] encounter [facility]* Diagnosis Urinary frequency Urinary urgency Urgency of urination Burning with urination Dysuria Erythema Unspecified erythematous condition Chronic vulvitis Unspecified vaginitis and vulvovaginitis Night sweats Generalized hyperhidrosis documented in this encounter [facility]* Diagnosis Granulation tissue Hymen abnormality documented in this encounter [facility]* Diagnosis Degenerative disc disease, cervical- Primary documented in this encounter [facility]* Diagnosis PCB (post coital bleeding)- Primary Postcoital bleeding Granulation tissue documented in this encounter [facility]* Diagnosis PCB (post coital bleeding) Postcoital bleeding Granulation tissue Hymen abnormality documented in this encounter [facility]* Diagnosis Peroneal tendinitis of right lower extremity- Primary Bilateral foot pain Exostosis of bone of foot documented in this encounter [facility]* Diagnosis Soft tissue mass- Primary Disorders of soft tissue, unspecified Gastro-esophageal reflux disease without esophagitis Gastroparesis Mild intermittent asthma, unspecified whether complicated (CMS/HCC) documented in this encounter [facility]* Diagnosis Oral candidiasis- Primary Candidiasis of mouth Tongue pain Glossodynia documented in this encounter [facility]* Diagnosis Chronic diarrhea- Primary Diarrhea Chronic abdominal pain Abdominal pain, unspecified site Bloating Flatulence, eructation, and gas pain Inadequate oral intake Other symptoms concerning nutrition, metabolism, and development [place] grade D esophagitis Gastroparesis [facility] Diagnosis Aftercare following surgery Encounter for other specified aftercare Aftercare following surgery Encounter for other specified aftercare documented in this encounter [facility]* Diagnosis Aftercare following surgery Encounter for other specified aftercare documented in this encounter [facility]* Diagnosis Seborrheic keratosis Lentigines Capillary angioma Nevus, non-neoplastic documented in this encounter [facility]* Diagnosis Restless legs syndrome Restless legs syndrome (RLS) documented in this encounter [facility]* Diagnosis Other migraine without status migrainosus, not intractable documented in this encounter [facility]* Diagnosis CHUCKIE (obstructive sleep apnea)- Primary Obstructive sleep apnea (adult) (pediatric) Pre-op testing- Primary Unspecified pre-operative examination CHUCKIE (obstructive sleep apnea) Obstructive sleep apnea (adult) (pediatric) documented in this encounter [facility]* Diagnosis Other migraine without status migrainosus, not intractable- Primary documented in this encounter [facility]* Diagnosis CHUCKIE (obstructive sleep apnea)- Primary Obstructive sleep apnea (adult) (pediatric) documented [facility] - Reported* Type Description Date [...] see above list Hospitalization History respiratory 02/2020 [facility] Other [facility] general Narrative - ReportedNoQ-Layer Other history general Narrative - Reported* Type [...] see above list Hospitalization History respiratory 02/2020 [facility] Other Hospital Discharge instructionsAmbulatory Orders* Referral to Rheumatology Location: None [facility] Work Phone: InstructionsNot on filedocumented in this encounter [facility] filedocumented in this encounter [facility]Not on filedocumented in this encounter [facility]Not on filedocumented in this encounter [facility]ructionsNot on filedocumented in this encounter [facility] SystemReason for referral (narrative)* Outpatient Procedure (Routine) - Pending Review Specialty Diagnoses / Procedures Referred By Contac t Referred To Contact [facility] Diagnoses Gastroparesis Procedures CAPSULE ENDOSCOPY SMART Isra Masters DO [facility] [address] [place] [id number] [place] [phone] Referral ID Status Reason Start Date Expiration Date Visits Requested Visits Authorized [id number] Pending Review Auto-Generat ed Referral 10/11/2022 10/11/2023 [facility] Outpatient Procedure (Routine) - Pending Review Specialty Diagnoses / Procedures Referred By Contac t Referred To Contact [facility] Diagnoses Chronic idiopathic constipation Procedures SIGMOIDOSCOPY SIGMOIDOSCOPY FLX DX W/COLLJ SPEC BR/WA IF PFRMD Isra Masters DO [facility] [address] [place] [address] [place] [phone] Referral ID Status Reason Start Date Expiration Date Visits Requested Visits Authorized [id number] Pending Review Auto-Generat ed Referral 11/30/2022 11/30/2023 1 1 [facility] Outpatient Procedure (Routine) - Pending Review Specialty Diagnoses / Procedures Referred By Contac t Referred To Contact [facility] Diagnoses Gastroparesis Procedures EGD - THERAPEUTIC, EUS, OR TUBE INTERVENTIONS ESOPHAGOGASTRODUODENOSC OPY TRANSORAL DIAGNOSTIC STOMACH SURGERY PROCEDURE [place] [address] [place] [phone] Referral ID Status Reason Start Date Expiration Date Visits Requested Visits Authorized [id number] Pending Review Auto-Generat ed Referral 01/11/2023 01/12/2024 1 1 [facility] for referral (narrative)* Outpatient Procedure (Routine) - Pending Review Specialty Diagnoses / Procedures Referred By Contac t Referred To Contact [facility] Diagnoses Incomplete bladder emptying Urinary urgency Urinary frequency Nocturia Procedures URODYNAMICS WHI COMPLX CYSTOMETRO W/VOID PRESS&URETHRAL PROFILE Nelsy Chávez APRN.[employer]LE[employer]ING [employer] [address] [place] [address] [facility] [address] [place] [address] Referral ID Status Reason Start Date Expiration Date Visits Requested Visits Authorized [id number] Pending Review Auto-Generat ed Referral 07/31/2023 07/30/2024 1 1 [facility] for referral (narrative)* Consultation (Routine) - Open Specialty Diagnoses / Procedures Referred By Contac t Referred To Contact Family Medicine Diagnoses Upper abdominal pain Lev Ritter APRN [employer] [address] [place] [address] [facility] [address] [place] [address] Referral ID Status Reason Start Date Expiration Date Visits Re quested Visits Authorized [id number] Open 08/12/2023 09/12/2024 1 1 [facility] for referral (narrative)* Consultation (Routine) - New Request Specialty Diagnoses / Procedures Referred By Contac t Referred To Contact Psychology Diagnoses Avoidant-restrictive food intake disorder (ARFID) Chronic abdominal pain Padmaja Llamas MD, PhD [address] [facility] [address] [place] [address] Referral ID Status Reason Start Date Expiration Date V isits Requested Visits Authorized [id number] New Request 08/09/2024 09/03/2025 1 1 * Adjunctive Therapy (Routine) - New Request Specialty Diagnoses / Procedures Referred By Gustavo salazar Referred To Contact Nutrition and Dietetics Diagnoses Chronic abdominal pain Bloating Gastroparesis Padmaja Llamas MD, PhD [address] [place] [address] Referral ID Status Reason Start Date Expiration Date V isits Requested Visits Authorized [id number] New Request 08/09/2024 09/03/2025 1 1 * Radiology (Routine) - New Request Specialty Diagnoses / Procedures Referred By Gustavo salazar Referred To Contact Diagnoses Chronic abdominal pain Bloating Procedures HYDROGEN (H2) BREATH TEST Padmaja Llamas MD, PhD [address] [place] [address] Referral ID Status Reason Start Date Expiration Date V isits Requested Visits Authorized [id number] New Request 08/09/2024 09/03/2025 1 1 [facility] NarrativeDISCUSS OTHER OPTIONS PRIOR TO PROC[facility]URENothe [facility] [place] [facility] Other Rebjvh for visit NarrativeRECHECK CERVICAL PAIN DISCUSS PROCEDURENothe [facility] [place] [facility] Other Rejrap for visit Narrative* Outpatient Procedure (Routine) - Closed Specialty Diagnoses / Procedures Referred By Gustavo salazar Referred To Contact [facility] Diagnoses Gastroparesis Procedures GI TRANSIT & PRES RAVINDER WIRELESS CAPSULE W/INTERP Isra Masters DO [facility] [address] [place] [address] [facility] [address] [place] [address] Referral ID Status Reason Start Date Expiration Date Visits Re quested Visits Authorized [id number] Closed 11/08/2022 11/05/2023 1 1 [facility] Summary Purpose Family History No [...] FoundDocuments on File Type Date Recorded Patient Supervisor Metal Hanging Expl anation Advance Directive(s) 10/13/2021 4:09 PM Advance Directive(s) 10/14/2020 8:14 AM Documents on File Type Date Recorded Patient Supervisor Metal Hanging Expl anation Advance Directive(s) 10/13/2021 4:09 PM Advance Directive(s) 10/14/2020 8:14 AM Documents on File Type Date Recorded Patient Supervisor Metal Hanging Expl anation Advance Directive(s) 03/21/2022 1:42 PM [...] unspecified whether esophagitis present Isra Masters DO [address] [place] [address] Referral ID Status Reason Start Date Expiration Date Visits Re quested Visits Authorized [id number] Closed 1 1 Referral ID Status Reason Start Date Expiration Date V isits Requested Visits Authorized [id number] Pending Review 1 1 Specialty Diagnoses / Procedures Referred By Gustavo salazar Referred To Contact CT IMAGING Diagnoses Periumbilical abdominal pain Procedures CT ABD/PEL W IVCON CT ABD & PELVIS W/[place] [address] [place] [address] Ct Imaging Referral ID Status Reason Start Date Expiration Date Visits Requested Visits Authorized [id number] Pending Review Auto-Generat ed Referral 08/02/2022 08/25/2023 1 1 Reason BILATERAL SHOULDER P AIN Diagnosis 1 Shoulder pain (M25.5 19) Referral Organization [facility] Referring Provider First Name Beto Referring Provider Last Name Steven Referring Provider Specialty Pain Medici ne Referred Organization [facility] Referred Provider Beto Cartagena Referred Address [address] [facility] [place], [place],[address] Referred Provider Specialty Orthopedic S urgery Referral Priority Routine Referral Appointment Date 2022-10-10 General Notes Kim Manley 10:01:46 AM >patient already scheduled with [facility] 10/10/22 at 1:30pm. Sending p2p at this time Referral ID Status Reason Start Date Expiration Date Visits Re quested Visits Authorized [id number] Closed 1 1 Specialty Diagnoses / Procedures Referred By Gustavo salazar Referred To Contact Diagnoses [place] grade D esophagitis Early satiety Unintentional weight loss Gastroparesis Procedures DIAGNOSTIC UPPER ENDOSCOPY [place] ESOPHAGOGASTRODUODENOSCOPY TRANSORAL DIAGNOSTIC Padmaja Llamas MD, PhD [address] [place] [address] [address] [place] [address] Referral ID Status Reason Start Date Expiration Date V isits Requested Visits Authorized [id number] New Request 03/06/2024 03/31/2025 1 1 Specialty Diagnoses / Procedures Referred By Gustavo t Referred To Contact Diagnoses Other migraine without status migrainosus, not intractable Pauline Christensen MD [address] [facility] [place] [address] Referral ID Status Reason Start Date Expiration Date V isits Requested Visits Authorized [id number] Pending Review 05/15/2024 05/15/2025 1 1 Referral ID Status Reason Start Date Expiration Date V isits Requested Visits Authorized [id number] Pending Review 05/15/2024 05/15/2025 1 1 Chief Complaint and Reason for Visit Chief Complaint M25.519 M25.569 R52 Chief Complaint M25.519 M25.569 R52 bilateral shoulder pain Chief Complaint M76.821/right foor p ain Chief Complaint M76.821/right foor p ain chest tightness dizzy sob Chief Complaint r11.0 r10.11 Chief Complaint M76.71 Chief Complaint M76.71 Unknown Chief Complaint Admit Date cervical spondylosis, radiculopathy [facility] 2023 2:53pm Chief Complaint Admit Date cervical spondylosis, radiculopathy [facility] 2023 2:53pm M54.12 October 09, 2024 8 :55am m47.816 October 10, 2024 8 :42am M54.16 October 10, 2024 8 :44am EMG/MRI results October 14, 2024 8 :25am Granulation Tissue, Post Coital Bleeding , Hymenal October 24, 2024 5:57am R14.0 K31.84 November 14, 2024 6: 37am Reason for Visit Admit Date Cervical radiculopathy September 16 2:53pm Cervical radiculopathy October 14 8:25am Chief Complaint Admit Date cervical spondylosis, radiculopathy [facility] 2023 2:53pm M54.12 October 09, 2024 8 :55am m47.816 October 10, 2024 8 :42am M54.16 October 10, 2024 8 :44am EMG/MRI results October 14, 2024 8 :25am Granulation Tissue, Post Coital Bleeding , Hymenal October 24, 2024 5:57am R14.0 K31.84 November 14, 2024 6: 37am f/u after PM November 20, 2024 1 :13pm Chief Complaint Admit Date cervical spondylosis, radiculopathy [facility] 2023 2:53pm M54.12 October 09, 2024 8 :55am m47.816 October 10, 2024 8 :42am M54.16 October 10, 2024 8 :44am EMG/MRI results October 14, 2024 8 :25am Granulation Tissue, Post Coital Bleeding , Hymenal October 24, 2024 5:57am R14.0 K31.84 November 14, 2024 6: 37am f/u after PM November 20, 2024 1 :13pm M25.511 M25.512 November 20, 2024 1 :54pm Reason for Visit Admit Date Cervical radiculopathy September 16 2:53pm Cervical radiculopathy October 14 8:25am Cervical radiculopathy November 20 1:13pm Chief Complaint Admit Date M54.12 October 09, 2024 8 :55am m47.816 October 10, 2024 8 :42am M54.16 October 10, 2024 8 :44am EMG/MRI results October 14, 2024 8 :25am Granulation Tissue, Post Coital Bleeding , Hymenal October 24, 2024 5:57am R14.0 K31.84 November 14, 2024 6: 37am f/u after PM November 20, 2024 1 :13pm M25.511 M25.512 November 20, 2024 1 :54pm outpatient labs December 16, 2024 1:25pm Reason for Visit Admit Date Cervical radiculopathy October 14 8:25am Cervical radiculopathy November 20 1:13pm Chief Complaint * Patient is a 53-year-old female who returns at the request of her primary care physician with episodic chest discomfort associated weakness, dizziness, diaphoresis with recent work-up that [facility] emergency room. Reportedly her troponins are [...] of which are currently being investigated at [facility] (now her fourth GI specialist). * Last year while in [place] she had similar issues with elevated troponins in the ED and underwent heart catheterization that did not reveal any specific significant disease, details of the discharge summary are reviewed * She underwent recent stress perfusion imaging at [facility], the report is reviewed, she hasno evidence [...] rise at [facility] however I believe this is likely a non- [place] troponin elevation, likely associated withunderlying inflammatory bowel disease. We will follow-up on a as needed basis unless further objective data come to light * Patient is a 53-year-old female who returns at the request of her primary care physician with episodic chest discomfort associated weakness, dizziness, diaphoresis with recent work-up that [facility] emergency room. Reportedly her troponins are [...] of which are currently being investigated at [facility] (now her fourth GI specialist). * Last year while in [place] she had similar issues with elevated troponins in the ED and underwent heart catheterization that did not reveal any specific significant disease, details of the discharge summary are reviewed * She underwent recent stress perfusion imaging at [facility], the report is reviewed, she hasno evidence [...] rise at [facility] however I believe this is likely a non- [place] troponin elevation, likely associated withunderlying inflammatory bowel disease. We will follow-up on a as needed basis unless further objective data come to light Additional Source Comments INFORMATION SOURCE (unrecogn ized section and content) DATE CREATED AUTHOR 07/08/2021 [place] [facility] DATE CREATED AUTHOR AUTHOR'S ORGANIZ ATION 11/18/2021 [facility] DATE CREATED AUTHOR AUTHOR'S ORGANIZ ATION 02/01/2022 [facility] DATE CREATED AUTHOR AUTHOR'S ORGANIZ ATION 04/05/2022 [facility] DATE CREATED AUTHOR AUTHOR'S ORGANIZ ATION 09/29/2022 [facility] DATE CREATED AUTHOR AUTHOR'S ORGANIZ ATION 12/09/2022 [facility] DATE CREATED AUTHOR AUTHOR'S ORGANIZ ATION 04/16/2023 [facility] DATE CREATED AUTHOR AUTHOR'S ORGANIZ ATION 06/14/2023 [facility] DATE CREATED AUTHOR AUTHOR'S ORGANIZ ATION 08/14/[address] [facility] DATE CREATED AUTHOR AUTHOR'S ORGANIZ ATION 09/02/2023 [facility] Center DATE CREATED AUTHOR AUTHOR'S ORGANIZ ATION 10/27/2023 [facility] DATE CREATED AUTHOR AUTHOR'S ORGANIZ ATION 01/11/2024 [facility] DATE CREATED AUTHOR AUTHOR'S ORGANIZ ATION 01/26/2024 [facility] DATE CREATED AUTHOR AUTHOR'S ORGANIZ ATION 03/16/2024 [facility] DATE CREATED AUTHOR AUTHOR'S ORGANIZ ATION 11/23/2024 [facility] DATE CREATED AUTHOR AUTHOR'S ORGANIZ ATION 12/14/2024 [facility] DATE CREATED AUTHOR AUTHOR'S ORGANIZ ATION 12/25/2024 [facility] DATE CREATED AUTHOR AUTHOR'S ORGANIZ ATION 12/28/2024 [facility] DATE CREATED AUTHOR AUTHOR'S ORGANIZ ATION 12/30/2024 [place] [facility] DATE CREATED AUTHOR AUTHOR'S ORGANIZ ATION 01/22/2025 [facility] DATE CREATED AUTHOR AUTHOR'S ORGANIZ ATION 01/26/2025 [facility] Source Comments (unrecognize d section and content) In the event this informatio n is protected by the Federal Confidentiality of Alcohol and Drug Abuse Patient Records regulations: The Federal rules restrict any use of the information to criminally investigate or prosecute any alcohol or drug abuse patient.[facility] Center[facility] the event this information is protected by the Federal Confidentiality of Alcohol and Drug Abuse Patient Records regulations: The Federal rules restrict any use of the information to criminally investigate or prosecute any alcohol or drug abuse patient.[facility] CenterIn the event this information is protected by the Federal Confidentiality of Alcohol and Drug Abuse Patient Records regulations: The Federal rules restrict any use of the information to criminally investigate or prosecute any alcohol or drug abuse patient.[facility] CenterIn the event this information is protected by the Federal Confidentiality of Alcohol and Drug Abuse Patient Records regulations: The Federal rules restrict any use of the information to criminally investigate or prosecute any alcohol or drug abuse patient.[facility] CenterIn the event this information is protected by the Federal Confidentiality of Alcohol and Drug Abuse Patient Records regulations: The Federal rules restrict any use of the information to criminally investigate or prosecute any alcohol or drug abuse patient.[facility] CenterIn the event this information is protected by the Federal Confidentiality of Alcohol and Drug Abuse Patient Records regulations: The Federal rules restrict any use of the information to criminally investigate or prosecute any alcohol or drug abuse patient.[facility] CenterIn the event this information is protected by the Federal Confidentiality of Alcohol and Drug Abuse Patient Records regulations: The Federal rules restrict any use of the information to criminally investigate or prosecute any alcohol or drug abuse patient.[facility] CenterIn the event this information is protected by the Federal Confidentiality of Alcohol and Drug Abuse Patient Records regulations: The Federal rules restrict any use of the information to criminally investigate or prosecute any alcohol or drug abuse patient.[facility] CenterIn the event this information is protected by the Federal Confidentiality of Alcohol and Drug Abuse Patient Records regulations: The Federal rules restrict any use of the information to criminally investigate or prosecute any alcohol or drug abuse patient.[facility] CenterIn the event this information is protected by the Federal Confidentiality of Alcohol and Drug Abuse Patient Records regulations: The Federal rules restrict any use of the information to criminally investigate or prosecute any alcohol or drug abuse patient.[facility] CenterIn the event this information is protected by the Federal Confidentiality of Alcohol and Drug Abuse Patient Records regulations: The Federal rules restrict any use of the information to criminally investigate or prosecute any alcohol or drug abuse patient.[facility] CenterIn the event this information is protected by the Federal Confidentiality of Alcohol and Drug Abuse Patient Records regulations: The Federal rules restrict any use of the information to criminally investigate or prosecute any alcohol or drug abuse patient.[facility] CenterIn the event this information is protected by the Federal Confidentiality of Alcohol and Drug Abuse Patient Records regulations: The Federal rules restrict any use of the information to criminally investigate or prosecute any alcohol or drug abuse patient.[facility] CenterIn the event this information is protected by the Federal Confidentiality of Alcohol and Drug Abuse Patient Records regulations: The Federal rules restrict any use of the information to criminally investigate or prosecute any alcohol or drug abuse patient.[facility] CenterIn the event this information is protected by the Federal Confidentiality of Alcohol and Drug Abuse Patient Records regulations: The Federal rules restrict any use of the information to criminally investigate or prosecute any alcohol or drug abuse patient.[facility] CenterIn the event this information is protected by the Federal Confidentiality of Alcohol and Drug Abuse Patient Records regulations: The Federal rules restrict any use of the information to criminally investigate or prosecute any alcohol or drug abuse patient.[facility] CenterIn the event this information is protected by the Federal Confidentiality of Alcohol and Drug Abuse Patient Records regulations: The Federal rules restrict any use of the information to criminally investigate or prosecute any alcohol or drug abuse patient.[facility] CenterIn the event this information is protected by the Federal Confidentiality of Alcohol and Drug Abuse Patient Records regulations: The Federal rules restrict any use of the information to criminally investigate or prosecute any alcohol or drug abuse patient.[facility] CenterIn the event this information is protected by the Federal Confidentiality of Alcohol and Drug Abuse Patient Records regulations: The Federal rules restrict any use of the information to criminally investigate or prosecute any alcohol or drug abuse patient.[facility] CenterIn the event this information is protected by the Federal Confidentiality of Alcohol and Drug Abuse Patient Records regulations: The Federal rules restrict any use of the information to criminally investigate or prosecute any alcohol or drug abuse patient.[facility] CenterIn the event this information is protected by the Federal Confidentiality of Alcohol and Drug Abuse Patient Records regulations: The Federal rules restrict any use of the information to criminally investigate or prosecute any alcohol or drug abuse patient.[facility] CenterIn the event this information is protected by the Federal Confidentiality of Alcohol and Drug Abuse Patient Records regulations: The Federal rules restrict any use of the information to criminally investigate or prosecute any alcohol or drug abuse patient.[facility] CenterIn the event this information is protected by the Federal Confidentiality of Alcohol and Drug Abuse Patient Records regulations: The Federal rules restrict any use of the information to criminally investigate or prosecute any alcohol or drug abuse patient.[facility] CenterIn the event this information is protected by the Federal Confidentiality of Alcohol and Drug Abuse Patient Records regulations: The Federal rules restrict any use of the information to criminally investigate or prosecute any alcohol or drug abuse patient.[facility] CenterIn the event this information is protected by the Federal Confidentiality of Alcohol and Drug Abuse Patient Records regulations: The Federal rules restrict any use of the information to criminally investigate or prosecute any alcohol or drug abuse patient.[facility] CenterIn the event this information is protected by the Federal Confidentiality of Alcohol and Drug Abuse Patient Records regulations: The Federal rules restrict any use of the information to criminally investigate or prosecute any alcohol or drug abuse patient.[facility] CenterIn the event this information is protected by the Federal Confidentiality of Alcohol and Drug Abuse Patient Records regulations: The Federal rules restrict any use of the information to criminally investigate or prosecute any alcohol or drug abuse patient.[facility] CenterIn the event this information is protected by the Federal Confidentiality of Alcohol and Drug Abuse Patient Records regulations: The Federal rules restrict any use of the information to criminally investigate or prosecute any alcohol or drug abuse patient.[facility] CenterIn the event this information is protected by the Federal Confidentiality of Alcohol and Drug Abuse Patient Records regulations: The Federal rules restrict any use of the information to criminally investigate or prosecute any alcohol or drug abuse patient.[facility] CenterIn the event this information is protected by the Federal Confidentiality of Alcohol and Drug Abuse Patient Records regulations: The Federal rules restrict any use of the information to criminally investigate or prosecute any alcohol or drug abuse patient.[facility] CenterIn the event this information is protected by the Federal Confidentiality of Alcohol and Drug Abuse Patient Records regulations: The Federal rules restrict any use of the information to criminally investigate or prosecute any alcohol or drug abuse patient.[facility] CenterIn the event this information is protected by the Federal Confidentiality of Alcohol and Drug Abuse Patient Records regulations: The Federal rules restrict any use of the information to criminally investigate or prosecute any alcohol or drug abuse patient.[facility] CenterIn the event this information is protected by the Federal Confidentiality of Alcohol and Drug Abuse Patient Records regulations: The Federal rules restrict any use of the information to criminally investigate or prosecute any alcohol or drug abuse patient.[facility] CenterIn the event this information is protected by the Federal Confidentiality of Alcohol and Drug Abuse Patient Records regulations: The Federal rules restrict any use of the information to criminally investigate or prosecute any alcohol or drug abuse patient.[facility] CenterIn the event this information is protected by the Federal Confidentiality of Alcohol and Drug Abuse Patient Records regulations: The Federal rules restrict any use of the information to criminally investigate or prosecute any alcohol or drug abuse patient.[facility] CenterIn the event this information is protected by the Federal Confidentiality of Alcohol and Drug Abuse Patient Records regulations: The Federal rules restrict any use of the information to criminally investigate or prosecute any alcohol or drug abuse patient.[facility] CenterIn the event this information is protected by the Federal Confidentiality of Alcohol and Drug Abuse Patient Records regulations: The Federal rules restrict any use of the information to criminally investigate or prosecute any alcohol or drug abuse patient.[facility] CenterIn the event this information is protected by the Federal Confidentiality of Alcohol and Drug Abuse Patient Records regulations: The Federal rules restrict any use of the information to criminally investigate or prosecute any alcohol or drug abuse patient.[facility] CenterIn the event this information is protected by the Federal Confidentiality of Alcohol and Drug Abuse Patient Records regulations: The Federal rules restrict any use of the information to criminally investigate or prosecute any alcohol or drug abuse patient.[facility] CenterIn the event this information is protected by the Federal Confidentiality of Alcohol and Drug Abuse Patient Records regulations: The Federal rules restrict any use of the information to criminally investigate or prosecute any alcohol or drug abuse patient.[facility] CenterIn the event this information is protected by the Federal Confidentiality of Alcohol and Drug Abuse Patient Records regulations: The Federal rules restrict any use of the information to criminally investigate or prosecute any alcohol or drug abuse patient.[facility] CenterIn the event this information is protected by the Federal Confidentiality of Alcohol and Drug Abuse Patient Records regulations: The Federal rules restrict any use of the information to criminally investigate or prosecute any alcohol or drug abuse patient.[facility] CenterIn the event this information is protected by the Federal Confidentiality of Alcohol and Drug Abuse Patient Records regulations: The Federal rules restrict any use of the information to criminally investigate or prosecute any alcohol or drug abuse patient.[facility] CenterIn the event this information is protected by the Federal Confidentiality of Alcohol and Drug Abuse Patient Records regulations: The Federal rules restrict any use of the information to criminally investigate or prosecute any alcohol or drug abuse patient.[facility] CenterIn the event this information is protected by the Federal Confidentiality of Alcohol and Drug Abuse Patient Records regulations: The Federal rules restrict any use of the information to criminally investigate or prosecute any alcohol or drug abuse patient.[facility] CenterIn the event this information is protected by the Federal Confidentiality of Alcohol and Drug Abuse Patient Records regulations: The Federal rules restrict any use of the information to criminally investigate or prosecute any alcohol or drug abuse patient.[facility] CenterIn the event this information is protected by the Federal Confidentiality of Alcohol and Drug Abuse Patient Records regulations: The Federal rules restrict any use of the information to criminally investigate or prosecute any alcohol or drug abuse patient.[facility] CenterIn the event this information is protected by the Federal Confidentiality of Alcohol and Drug Abuse Patient Records regulations: The Federal rules restrict any use of the information to criminally investigate or prosecute any alcohol or drug abuse patient.[facility] CenterIn the event this information is protected by the Federal Confidentiality of Alcohol and Drug Abuse Patient Records regulations: The Federal rules restrict any use of the information to criminally investigate or prosecute any alcohol or drug abuse patient.[facility] CenterIn the event this information is protected by the Federal Confidentiality of Alcohol and Drug Abuse Patient Records regulations: The Federal rules restrict any use of the information to criminally investigate or prosecute any alcohol or drug abuse patient.[facility] CenterIn the event this information is protected by the Federal Confidentiality of Alcohol and Drug Abuse Patient Records regulations: The Federal rules restrict any use of the information to criminally investigate or prosecute any alcohol or drug abuse patient.[facility] CenterIn the event this information is protected by the Federal Confidentiality of Alcohol and Drug Abuse Patient Records regulations: The Federal rules restrict any use of the information to criminally investigate or prosecute any alcohol or drug abuse patient.[facility] CenterIn the event this information is protected by the Federal Confidentiality of Alcohol and Drug Abuse Patient Records regulations: The Federal rules restrict any use of the information to criminally investigate or prosecute any alcohol or drug abuse patient.[facility] CenterIn the event this information is protected by the Federal Confidentiality of Alcohol and Drug Abuse Patient Records regulations: The Federal rules restrict any use of the information to criminally investigate or prosecute any alcohol or drug abuse patient.[facility] CenterIn the event this information is protected by the Federal Confidentiality of Alcohol and Drug Abuse Patient Records regulations: The Federal rules restrict any use of the information to criminally investigate or prosecute any alcohol or drug abuse patient.[facility] CenterIn the event this information is protected by the Federal Confidentiality of Alcohol and Drug Abuse Patient Records regulations: The Federal rules restrict any use of the information to criminally investigate or prosecute any alcohol or drug abuse patient.[facility] CenterIn the event this information is protected by the Federal Confidentiality of Alcohol and Drug Abuse Patient Records regulations: The Federal rules restrict any use of the information to criminally investigate or prosecute any alcohol or drug abuse patient.[facility] CenterIn the event this information is protected by the Federal Confidentiality of Alcohol and Drug Abuse Patient Records regulations: The Federal rules restrict any use of the information to criminally investigate or prosecute any alcohol or drug abuse patient.[facility] CenterIn the event this information is protected by the Federal Confidentiality of Alcohol and Drug Abuse Patient Records regulations: The Federal rules restrict any use of the information to criminally investigate or prosecute any alcohol or drug abuse patient.[facility] CenterIn the event this information is protected by the Federal Confidentiality of Alcohol and Drug Abuse Patient Records regulations: The Federal rules restrict any use of the information to criminally investigate or prosecute any alcohol or drug abuse patient.[facility] CenterIn the event this information is protected by the Federal Confidentiality of Alcohol and Drug Abuse Patient Records regulations: The Federal rules restrict any use of the information to criminally investigate or prosecute any alcohol or drug abuse patient.[facility] CenterIn the event this information is protected by the Federal Confidentiality of Alcohol and Drug Abuse Patient Records regulations: The Federal rules restrict any use of the information to criminally investigate or prosecute any alcohol or drug abuse patient.[facility] CenterIn the event this information is protected by the Federal Confidentiality of Alcohol and Drug Abuse Patient Records regulations: The Federal rules restrict any use of the information to criminally investigate or prosecute any alcohol or drug abuse patient.[facility] CenterIn the event this information is protected by the Federal Confidentiality of Alcohol and Drug Abuse Patient Records regulations: The Federal rules restrict any use of the information to criminally investigate or prosecute any alcohol or drug abuse patient.[facility] CenterIn the event this information is protected by the Federal Confidentiality of Alcohol and Drug Abuse Patient Records regulations: The Federal rules restrict any use of the information to criminally investigate or prosecute any alcohol or drug abuse patient.[facility] CenterIn the event this information is protected by the Federal Confidentiality of Alcohol and Drug Abuse Patient Records regulations: The Federal rules restrict any use of the information to criminally investigate or prosecute any alcohol or drug abuse patient.[facility] CenterIn the event this information is protected by the Federal Confidentiality of Alcohol and Drug Abuse Patient Records regulations: The Federal rules restrict any use of the information to criminally investigate or prosecute any alcohol or drug abuse patient.[facility] CenterIn the event this information is protected by the Federal Confidentiality of Alcohol and Drug Abuse Patient Records regulations: The Federal rules restrict any use of the information to criminally investigate or prosecute any alcohol or drug abuse patient.[facility] CenterIn the event this information is protected by the Federal Confidentiality of Alcohol and Drug Abuse Patient Records regulations: The Federal rules restrict any use of the information to criminally investigate or prosecute any alcohol or drug abuse patient.[facility] CenterIn the event this information is protected by the Federal Confidentiality of Alcohol and Drug Abuse Patient Records regulations: The Federal rules restrict any use of the information to criminally investigate or prosecute any alcohol or drug abuse patient.[facility] CenterIn the event this information is protected by the Federal Confidentiality of Alcohol and Drug Abuse Patient Records regulations: The Federal rules restrict any use of the information to criminally investigate or prosecute any alcohol or drug abuse patient.[facility] CenterIn the event this information is protected by the Federal Confidentiality of Alcohol and Drug Abuse Patient Records regulations: The Federal rules restrict any use of the information to criminally investigate or prosecute any alcohol or drug abuse patient.[facility] CenterIn the event this information is protected by the Federal Confidentiality of Alcohol and Drug Abuse Patient Records regulations: The Federal rules restrict any use of the information to criminally investigate or prosecute any alcohol or drug abuse patient.[facility] CenterIn the event this information is protected by the Federal Confidentiality of Alcohol and Drug Abuse Patient Records regulations: The Federal rules restrict any use of the information to criminally investigate or prosecute any alcohol or drug abuse patient.[facility] CenterIn the event this information is protected by the Federal Confidentiality of Alcohol and Drug Abuse Patient Records regulations: The Federal rules restrict any use of the information to criminally investigate or prosecute any alcohol or drug abuse patient.[facility] CenterIn the event this information is protected by the Federal Confidentiality of Alcohol and Drug Abuse Patient Records regulations: The Federal rules restrict any use of the information to criminally investigate or prosecute any alcohol or drug abuse patient.[facility] CenterIn the event this information is protected by the Federal Confidentiality of Alcohol and Drug Abuse Patient Records regulations: The Federal rules restrict any use of the information to criminally investigate or prosecute any alcohol or drug abuse patient.[facility] CenterIn the event this information is protected by the Federal Confidentiality of Alcohol and Drug Abuse Patient Records regulations: The Federal rules restrict any use of the information to criminally investigate or prosecute any alcohol or drug abuse patient.[facility] CenterIn the event this information is protected by the Federal Confidentiality of Alcohol and Drug Abuse Patient Records regulations: The Federal rules restrict any use of the information to criminally investigate or prosecute any alcohol or drug abuse patient.[facility] CenterIn the event this information is protected by the Federal Confidentiality of Alcohol and Drug Abuse Patient Records regulations: The Federal rules restrict any use of the information to criminally investigate or prosecute any alcohol or drug abuse patient.[facility] CenterIn the event this information is protected by the Federal Confidentiality of Alcohol and Drug Abuse Patient Records regulations: The Federal rules restrict any use of the information to criminally investigate or prosecute any alcohol or drug abuse patient.[facility] CenterIn the event this information is protected by the Federal Confidentiality of Alcohol and Drug Abuse Patient Records regulations: The Federal rules restrict any use of the information to criminally investigate or prosecute any alcohol or drug abuse patient.[facility] CenterIn the event this information is protected by the Federal Confidentiality of Alcohol and Drug Abuse Patient Records regulations: The Federal rules restrict any use of the information to criminally investigate or prosecute any alcohol or drug abuse patient.[facility] CenterIn the event this information is protected by the Federal Confidentiality of Alcohol and Drug Abuse Patient Records regulations: The Federal rules restrict any use of the information to criminally investigate or prosecute any alcohol or drug abuse patient.[facility] CenterIn the event this information is protected by the Federal Confidentiality of Alcohol and Drug Abuse Patient Records regulations: The Federal rules restrict any use of the information to criminally investigate or prosecute any alcohol or drug abuse patient.[facility] CenterIn the event this information is protected by the Federal Confidentiality of Alcohol and Drug Abuse Patient Records regulations: The Federal rules restrict any use of the information to criminally investigate or prosecute any alcohol or drug abuse patient.[facility] CenterIn the event this information is protected by the Federal Confidentiality of Alcohol and Drug Abuse Patient Records regulations: The Federal rules restrict any use of the information to criminally investigate or prosecute any alcohol or drug abuse patient.[facility] CenterIn the event this information is protected by the Federal Confidentiality of Alcohol and Drug Abuse Patient Records regulations: The Federal rules restrict any use of the information to criminally investigate or prosecute any alcohol or drug abuse patient.[facility] Reason for Visit (unrecogniz ed section and content) Reason Comments Physical Therapy Specialty Diagnoses / Procedures Referred By Gustavo t Referred To Contact [facility] Diagnoses Follow-up examination after colorectal surgery Procedures CONSULT TO PHYSICAL THERAPY PHYSICAL THERAPY EVALUATION HIGH COMPLEX [place] [address] [place] [address] [facility] [address] [place] [address] Referral ID Status Reason Start Date Expiration Date Visits Requested Visits Authorized [id number] Authorized Auto-Generat ed Referral 01/04/2022 11/05/2022 30 30 Reason Comments Refill Request [email or web address] Reason Comments Established Patient Follow-Up Reason Comments Post Op Reason Comments Established Patient Reason Comments Appointment for script refill Reason Comments Gastroparesis Reason Comments Reports Analyst - Other Reason Comments Medication 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 PA [...] ESOPHAGUS DOUBLE CONTRAST [place] [address] Xr Imaging Referral ID Status Reason Start Date Expiration Date V isits Requested Visits Authorized [id number] Closed Auto-Generate d Referral 11/17/2022 12/17/2023 1 [...] ABD & [place] [address] [place] [address] Ct Imaging Referral ID Status Reason Start Date Expiration Date V isits Requested Visits Authorized [id number] Closed Auto-Generate d Referral 07/28/2022 11/05/2022 2 2 Reason Comments Urinary Retention Reason Comments Abdominal Pain Reason Comments Med Change Request Reason Comments Question Reason Comments Anesthesia Consult Urinary urgency, Uri nary frequency, OAB (overactive bladder) and Urinary incontinence, urge Reason Onset Date Comments Pre-Op Teaching 01/22/2024 Reason Comments Patient Left Without Being Seen Reason Comments Post-Op Visit Specialty Diagnoses / Procedures Referred By Gustavo salazar Referred To Contact Diagnoses [place] grade D esophagitis Early satiety Unintentional weight loss Gastroparesis Procedures DIAGNOSTIC UPPER ENDOSCOPY [place] ESOPHAGOGASTRODUODENOSCOPY TRANSORAL DIAGNOSTIC Padmaja Llamas MD, PhD [address] [place] [address] Referral ID Status Reason Start Date Expiration Date V isits Requested Visits Authorized [id number] New Request 03/06/2024 03/31/2025 1 1 Specialty Diagnoses / Procedures Referred By Gustavo salazar Referred To Contact Orthopedics / ORTHOPAEDIC SURGERY Diagnoses shoulder pain right pt will hand carry MRI Procedures POLI ACUTE Self Ryan Lynne MD [address] [place] [address] Referral ID Status Reason Start Date Expiration Date V isits Requested Visits Authorized [id number] Closed Financial Clearance Not Required 09/06/2020 10/05/2020 [...] after intercourse. Not actively bleeding since then. Reason Comments Pre-op Visit States bleeding afte r intercourse each time. Reason Comments Mass Reason Comments tongue sores Reason Comments Follow-up Pt is being seen for follow-up. Pt would like to go over medication. She says she is still having heartburn and blood when wiping. Pt also menches she burps a lot and stomach gurgles after eating. Reason Comments Post-op Visit 10/24/24 vaginal cuf f and hymen repair4 daysC/o bright red vaginal bleeding when she wiped. Reason Comments Post-op Visit 10/24/24 vaginal cuf f and hymen daysDenies PO concerns. Bleeding stopped after 7 days. Reason Comments Skin Check Reason Comments Med Refill Reason Onset Date Comments Med Refill 12/10/2024 Reason Onset Date Comments Medication/Pharmacy Switch 05/14/2024 Reason Comments Post-op [facility] Teams (unrecognized sec tion and content) Team Status: Active Member Role Status Dates Shannon Gómez DO Primary Care Provider Active Team Status: Active Member Role Status Dates Shannon Gómez DO Primary Care Provider Active Start: October 09, 2024 Anibal Medrano DO Other Provider Active Start : October 09, 2024 Ifeanyi Cantu MD Attending Provider Active Start: October 09, 2024 Team Status: Inactive Member Role Status Dates Monica Burns NP-C Attending Provider Active St art: October 10, 2024 End: October 10, 2024 Shannon Gómez DO Primary Care Provider Active Start: October 10, 2024 End: October 10, 2024 Team Status: Inactive Member Role Status Dates Shannon Gómez DO Primary Care Provider Active Start: October 10, 2024 End: October 10, 2024 Anibal Medrano DO Attending Provider Active S tart: October 10, 2024 End: October 10, 2024 Team Status: Inactive Member Role Status Dates Shannon Gómez DO Primary Care Provider Active Start: October 14, 2024 End: October 14, 2024 Anibal Medrano DO Attending Provider Active S tart: October 14, 2024 End: October 14, 2024 Team Status: Inactive Member Role Status Dates Shannon Gómez DO Primary Care Provider Active Start: October 24, 2024 End: October 24, 2024 Dipti Acevedo DO Attending Provider Active Start: October 24, 2024 End: October 24, 2024 Team Status: Inactive Member Role Status Dates Shannon Gómez DO Primary Care Provider Active Start: November 14, 2024 End: November 14, 2024 Padmaja Llamas MD Attending Provider Active Start: Louis banuelos 2024 End: November 14, 2024 Team Status: Inactive Member Role Status Dates Shannon NgDO tomasa Primary Care Provider Active Start: November 20, 2024 End: November 20, 2024 Anibal Medrano , DO Attending Provider Active S tart: November 20, 2024 End: November 20, 2024 Team Status: Inactive Member Role Status Dates Shannon NgDO tomasa Primary Care Provider Active Start: December 16, 2024 End: December 16, 2024 Everett Valdez MD Attending Provider Active St art: December 16, 2024 End: December 16, 2024 Team Status: Inactive Member Role Status Dates Shannon NgDO tomasa Primary Care Provider Active Niecy Duron PA-C Attending Provider Active Special Education Bus Driver Relationship Specialty Start Date End Date Eliceo Gómez Jr. [address] [place] [address] PCP - General Family Practice 10/14/20 Special Education Bus Driver Relationship Specialty Start Date End Date Eliceo Gómez Jr. [address] [place] [address] PCP - General Family Practice 10/14/20 Special Education Bus Driver Relationship Specialty Start Date End Date Eliceo Gómez Jr. [address] [place] [address] PCP - General Family Practice 10/14/20 Special Education Bus Driver Relationship Specialty Start Date End Date Eliceo Gómez Jr. [address] [place] [address] PCP - General Family Practice 10/14/20 Special Education Bus Driver Relationship Specialty Start Date End Date Eliceo Gómez Jr. [address] [place] [address] PCP - General Family Practice 10/14/20 Special Education Bus Driver Relationship Specialty Start Date End Date Eliceo Gómez Jr. [address] [place] [address] PCP - General Family Practice 10/14/20 Gwendolyn Stroud [address] [place] [address] Family Practice 03/14/22 Special Education Bus Driver Relationship Specialty Start Date End Date Eliceo Gómez Jr. [address] [place] [address] PCP - General Family Practice 10/14/20 Gwendolyn Stroud [address] [place] [address] Family Practice 03/14/22 Special Education Bus Driver Relationship Specialty Start Date End Date Eliceo Gómez Jr. [address] [place] [address] PCP - General Family Practice 10/14/20 Gwendolyn Stroud [address] [place] [address] Family Practice 03/14/22 Special Education Bus Driver Relationship Specialty Start Date End Date Eliceo Gómez Jr. [address] [place] [address] PCP - General Family Practice 10/14/20 Gwendolyn Stroud [address] [place] [address] Family Practice 03/14/22 Special Education Bus Driver Relationship Specialty Start Date End Date Eliceo Gómez Jr. [address] [place] [address] PCP - General Family Practice 10/14/20 Gwendolyn Stroud [address] [place] [address] Family Practice 03/14/22 Special Education Bus Driver Relationship Specialty Start Date End Date Eliceo Gómez Jr. [address] [place] [address] PCP - General Family Practice 10/14/20 Gwendolyn Stroud [address] [place] [address] Family Practice 03/14/22 Special Education Bus Driver Relationship Specialty Start Date End Date Eliceo Gómez Jr. [address] [place] [address] PCP - General Family Practice 10/14/20 Gwendolyn Stroud, CHEERLEADING COACH Family Practice 03/14/22 Special Education Bus Driver Relationship Specialty Start Date End Date Eliceo Gómez Jr. [address] [place] [address] PCP - General Family Practice 10/14/20 Gwendolyn Stroud, CHEERLEADING [employer]ACH Family Practice 03/14/22 Special Education Bus Driver Relationship Specialty Start Date End Date Eliceo Gómez Jr. [address] [place] [address] PCP - General Family Practice 10/14/20 Gwendolyn Stroud, CHEERLEADING COACH Family Practice 03/14/22 Special Education Bus Driver Relationship Specialty Start Date End Date Eliceo Gómez Jr. [address] [place] [address] PCP - General Family Practice 10/14/20 Gwendolyn Stroud, CHEERLEADING COACH Family Practice 03/14/22 Special Education Bus Driver Relationship Specialty Start Date End Date Dalia Eliceo Lugo Jr. [address] [place] [address] PCP - General Family Medicine 10/14/20 Gwendolyn Stroud, CHEERLEADING COACH Family Medicine 03/14/22 Special Education Bus Driver Relationship Specialty Start Date End Date Eliceo Gómez Jr. [address] [place] [address] PCP - General Family Medicine 10/14/20 Gwendolyn Stroud, CHEERLEADING COACH Family Medicine 03/14/22 Special Education Bus Driver Relationship Specialty Start Date End Date Eliceo Gómez Jr. [address] [place] [address] PCP - General Family Medicine 10/14/20 Gwendolyn Stroud, CHEERLEADING COACH Family Medicine 03/14/22 Special Education Bus Driver Relationship Specialty Start Date End Date Eliceo Gómez Jr. [address] [place] [address] PCP - General Family Medicine 10/14/20 Gwendolyn Stroud, CHEERLEADING COACH Family Medicine 03/14/22 Team Status: Inactive Member Role Status Dates Shannon Gómez DO Primary Care Provider Active Beto Snyder MD Attending Provider Active Special Education Bus Driver Relationship Specialty Start Date End Date Eliceo Gómez Jr. [address] [place] [address] PCP - General Family Medicine 10/14/20 Gwendolyn Stroud, CHEERLEADING COACH [address] [place] [address] Family Medicine 03/14/22 Special Education Bus Driver Relationship Specialty Start Date End Date Eliceo Gómez Jr. [address] [place] [address] PCP - General Family Medicine 10/14/20 Gwendolyn Stroud, KWESI [address] [place] [address] Family Medicine 03/14/22 Special Education Bus Driver Relationship Specialty Start Date End Date Eliceo Gómez Jr. [address] [place] [address] PCP - General Family Medicine 10/14/20 Gwendolyn Stroud, KWESI [address] [place] [address] Family Medicine 03/14/22 Special Education Bus Driver Relationship Specialty Start Date End Date Eliceo Gómez Jr. [address] [place] [address] PCP - General Family Medicine 10/14/20 Gwendolyn Stroud, KWESI [address] [place] [address] Family Medicine 03/14/22 Special Education Bus Driver Relationship Specialty Start Date End Date Eliceo Gmóez Jr. [address] [place] [address] PCP - General Family Medicine 10/14/20 Gwendolyn Stroud, CHEERLEADING COACH [address] [place] [address] Family Medicine 03/14/22 Special Education Bus Driver Relationship Specialty Start Date End Date Eliceo Gómez Jr. [address] [place] [address] PCP - General Family Medicine 10/14/20 Gwendolyn Stroud CNP [address] [place] [address] Family Medicine 03/14/22 Special Education Bus Driver Relationship Specialty Start Date End Date Eliceo Gómez Jr. [address] [place] [address] PCP - General Family Medicine 10/14/20 Gwendolyn Stroud CNP [address] [place] [address] Family Medicine 03/14/22 Special Education Bus Driver Relationship Specialty Start Date End Date Eliceo Gómez Jr. [address] [place] [address] PCP - General Family Medicine 10/14/20 Gwendolyn Stroud CNP [address] [place] [address] Family Medicine 03/14/22 Special Education Bus Driver Relationship Specialty Start Date End Date Eliceo Gómez Jr. [address] [place] [address] PCP - General Family Medicine 10/14/20 Gwendolyn Stroud CNP [address] [place] [address] Family Medicine 03/14/22 Special Education Bus Driver Relationship Specialty Start Date End Date Eliceo Gómez Jr. [address] [place] [address] PCP - General Family Medicine 10/14/20 Gwendolyn Stroud CNP [address] [place] [address] Family Medicine 03/14/22 Special Education Bus Driver Relationship Specialty Start Date End Date Eliceo Gómez Jr. [address] [place] [address] PCP - General Family Medicine 10/14/20 Gwendolyn Stroud CNP [address] [place] [address] Family Medicine 03/14/22 Team Status: Inactive Member Role Status Dates Shannon Gómez DO Primary Care Provider Active Beto Cartagena MD Attending Provider Active Special Education Bus Driver Relationship Specialty Start Date End Date Eliceo Gómez Jr. [address] [place] [address] PCP - General Family Medicine 10/14/20 Gwendolyn Stroud CNP [address] [place] [address] Family Medicine 03/14/22 Special Education Bus Driver Relationship Specialty Start Date End Date Eliceo Gómez Jr. [address] [place] [address] PCP - General Family Medicine 10/14/20 Gwendolyn Stroud CNP [address] [place] [address] Family Medicine 03/14/22 Special Education Bus Driver Relationship Specialty Start Date End Date Eliceo Gómez Jr. [address] [place] [address] PCP - General Family Medicine 10/14/20 Gwendolyn tSroud CNP [address] [place] [address] Family Medicine 03/14/22 Special Education Bus Driver Relationship Specialty Start Date End Date Eliceo Gómez Jr. [address] [place] [address] PCP - General Family Medicine 10/14/20 Gwendolyn Stroud, KWESI [address] [place] [address] Family Medicine 03/14/22 Special Education Bus Driver Relationship Specialty Start Date End Date Eliceo Gómez Jr. [address] [place] [address] PCP - General Family Medicine 10/14/20 Gwendolyn Stroud, KWESI [address] [place] [address] Family Medicine 03/14/22 Special Education Bus Driver Relationship Specialty Start Date End Date Eliceo Gómez Jr. [address] [place] [address] PCP - General Family Medicine 10/14/20 Gwendolyn Stroud CNP [address] [place] [address] Family Medicine 03/14/22 Special Education Bus Driver Relationship Specialty Start Date End Date Eliceo Gómez Jr. [address] [place] [address] PCP - General Family Medicine 10/14/20 Gwendolyn Stroud, KWESI [address] [place] [address] Family Medicine 03/14/22 Special Education Bus Driver Relationship Specialty Start Date End Date Eliceo Gómez Jr. [address] [place] [address] PCP - General Family Medicine 10/14/20 Gwendolyn Stroud CNP [address] [place] [address] Family Medicine 03/14/22 Team Status: Inactive Member Role Status Henrietta Gómez , DO Primary Care Provider Active Anibal Valle , DO Emergency Provider Active Special Education Bus Driver Relationship Specialty Start Date End Date Eliceo Gómez Jr. [address] [place] [address] PCP - General Family Medicine 10/14/20 Gwendolyn Stroud CNP [address] [place] [address] Family Medicine 03/14/22 Special Education Bus Driver Relationship Specialty Start Date End Date Eliceo Gómez Jr. [address] [place] [address] PCP - General Family Medicine 10/14/20 Gwendolyn Stroud CNP [address] [place] [address] Family Medicine 03/14/22 Special Education Bus Driver Relationship Specialty Start Date End Date Eliceo Gómez Jr. [address] [place] [address] PCP - General Family Medicine 10/14/20 Gwendolyn Stroud CNP [address] [place] [address] Family Medicine 03/14/22 Special Education Bus Driver Relationship Specialty Start Date End Date Eliceo Gómez Jr., DO [address] [place] [address] PCP - General Family Medicine 10/14/20 Gwendolyn Stroud CNP [address] [place] [address] Family Medicine 03/14/22 Special Education Bus Driver Relationship Specialty Start Date End Date Eliceo Gómez Jr., DO [address] [place] [address] PCP - General Family Medicine 10/14/20 Gwendolyn Stroud CHEERLEADING COACH [address] [place] [address] Family Medicine 03/14/22 Team Status: Inactive Member Role Status Dates Shannon Gómez DO Primary Care Provider Active Start: November 23, 2023 End: November 23, 2023 Tez Vazquez DO Attending Provider Active Start : November 23, 2023 End: November 23, 2023 Special Education Bus Driver Relationship Specialty Start Date End Date Eliceo Gómez Jr., DO [address] [place] [address] PCP - General Family Medicine 10/14/20 Gwendolyn Stroud, CHEERLEADING COACH [address] [place] [address] Family Medicine 03/14/22 Special Education Bus Driver Relationship Specialty Start Date End Date Eliceo Gómez Jr., DO [address] [place] [address] PCP - General Family Medicine 10/14/20 Gwendolyn Stroud CNP [address] [place] [address] Family [facility] 03/14/22 Special Education Bus Driver Relationship Specialty Start Date End Date Eliceo Gómez Jr., DO [address] [place] [address] PCP - General Family Medicine 10/14/20 Gwendolyn Stroud CHEERLEADING COACH [address] [place] [address] Family [facility] 03/14/22 Special Education Bus Driver Relationship Specialty Start Date End Date Eliceo Gómez Jr., DO [address] [place] [id number] PCP - General Family Medicine 10/14/20 Gwendolyn Stroud, KWESI [address] [place] [address] Family [facility] 03/14/22 Special Education Bus Driver Relationship Specialty Start Date End Date Eliceo Gómez Jr., DO [address] [place] [address] PCP - General Family Medicine 10/14/20 Gwendolyn Stroud, CHEERLEADING COACH [address] [place] [address] Family [facility] 03/14/22 Special Education Bus Driver Relationship Specialty Start Date End Date Eliceo Gómez Jr., DO [address] [place] [address] PCP - General Family Medicine 10/14/20 Gwendolyn Stroud, KWESI [address] [place] [address] Family Medicine 03/14/22 Special Education Bus Driver Relationship Specialty Start Date End Date Eliceo Gómez Jr., [address] [place] [address] PCP - General Family Medicine 10/14/20 Gwendolyn Stroud CNP [address] [place] [address] Family Medicine 03/14/22 Special Education Bus Driver Relationship Specialty Start Date End Date Shannon Gómez, [address] [place] [address] PCP - General Family Medicine 11/14/23 Team [...] May 27, 2024 End: May 27, 2024 Special Education Bus Driver Relationship Specialty Start Date End Date Eliceo Gómez Jr., DO [address] [place] [address] PCP - General Family Medicine 10/14/20 Gwendolyn Stroud, KWESI [address] [place] [address] Family Medicine 03/14/22 Special Education Bus Driver Relationship Specialty Start Date End Date Eliceo Gómez Jr., DO [address] [place] [address] PCP - General [facility] 10/14/20 Special Education Bus Driver Relationship Specialty Start Date End Date Shannon Gómez, DO [address] [place] [address] PCP - General [facility] 11/14/23 Special Education Bus Driver Relationship Specialty Start Date End Date Eliceo Gómez, DO [address] [place] [address] PCP - General [facility] 04/04/23 Eliceo Gómez, DO [address] [place] [address] PCP - [facility] 05/06/23 Dipti Acevedo, DO [address] [place] [address] Referring Physician Obstetrics and Gynecology 05/20/24 Special Education Bus Driver Relationship Specialty Start Date End Date Eliceo Gómez, [address] [place] [address] PCP - General [facility] 04/04/23 Eliceo Gómez, DO [address] [place] [address] PCP - [facility] 05/06/23 Dipti Acevedo, DO [address] [place] [address] Referring Physician Obstetrics and Gynecology 05/20/24 Team Status: Inactive Member Role Status Henrietta Gómez DO Primary Care Provider Active Start: September 16, 2024 End: September 16, 2024 Anibal Medrano DO Attending Provider Active S tart: September 16, 2024 End: September 16, 2024 Special Education Bus Driver Relationship Specialty Start Date End Date Eliceo Gómez DO [address] [place] [address] PCP - General Family Medicine 04/04/23 Eliceo Gómez DO [address] [place] [address] PCP - [facility] 05/06/23 Dipti Acevedo, [address] [place] [address] Referring Physician Obstetrics and Gynecology 05/20/24 Special Education Bus Driver Relationship Specialty Start Date End Date Eliceo Gómez DO [address] [place] [address] PCP - General Family Medicine 04/04/23 Eliceo Gómez, [address] [place] [address] PCP - [facility] 05/06/23 Dipti Acevedo, DO [address] [place] [address] Referring Physician Obstetrics and Gynecology 05/20/24 Special Education Bus Driver Relationship Specialty Start Date End Date Eliceo Gómez DO [address] [place] [address] PCP - General Family Medicine 04/04/23 Eliceo Gómez DO [address] [place] [address] PCP - [facility] 05/06/23 Dipti Acevedo, DO [address] [place] [address] Referring Physician Obstetrics and Gynecology 05/20/24 Special Education Bus Driver Relationship Specialty Start Date End Date Eliceo Gómez DO [address] [place] [address] PCP - General [facility] 04/04/23 Eliceo Gómez DO [address] [place] [address] PCP - [facility] 05/06/23 Dipti Acevedo, DO [address] [place] [address] Referring Physician Obstetrics and Gynecology 05/20/24 Special Education Bus Driver Relationship Specialty Start Date End Date Eliceo Gómez DO [address] [place] [address] PCP - General Family [facility] 04/04/23 Eliceo Gómez DO [address] [place] [address] PCP - [facility] 05/06/23 Dipti Acevedo, DO [address] [place] [address] Referring Physician Obstetrics and Gynecology 05/20/24 Special Education Bus Driver Relationship Specialty Start Date End Date Eliceo Gómez DO [address] [place] [address] PCP - General Family Medicine 04/04/23 Eliceo Gómez, [address] [place] [address] PCP - [facility] 05/06/23 Dipti Acevedo, DO [address] [place] [address] Referring Physician Obstetrics and Gynecology 05/20/24 Special Education Bus Driver Relationship Specialty Start Date End Date Eliceo Gómez DO [address] [place] [address] PCP - General Family Medicine 04/04/23 Eliceo Gómez, [address] [place] [address] PCP - [facility] 05/06/23 Dipti Acevedo, DO [address] [place] [address] Referring Physician Obstetrics and Gynecology 05/20/24 Special Education Bus Driver Relationship Specialty Start Date End Date Shannon Gómez DO [address] [place] [address] PCP - General Family Medicine 11/14/23 Special Education Bus Driver Relationship Specialty Start Date End Date Eliceo Gómez DO [address] [place] [address] PCP - General Family Medicine 04/04/23 Eliceo Gómez, [address] [place] [address] PCP - [facility] 05/06/23 Dipti Acevedo, DO [address] [place] [address] Referring Physician Obstetrics and Gynecology 05/20/24 Special Education Bus Driver Relationship Specialty Start Date End Date Eliceo Gómez, DO [address] [place] [address] PCP - General Family Medicine 04/04/23 Eliceo Gómez, DO [address] [place] [address] PCP - [facility] 05/06/23 Dipti Acevedo, DO [address] [place] [address] Referring Physician Obstetrics and Gynecology 05/20/24 Special Education Bus Driver Relationship Specialty Start Date End Date Eliceo Gómez, [address] [place] [address] PCP - General Family Medicine 04/04/23 Eliceo Gómez, DO [address] [place] [address] PCP - [facility] 05/06/23 Dipti Acevedo, DO [address] [place] [address] Referring Physician Obstetrics and Gynecology 05/20/24 Special Education Bus Driver Relationship Specialty Start Date End Date Eliceo Gómez Jr., DO [address] [place] [address] PCP - General Family Medicine 12/11/19 [facility] [address] [facility] [address] [place] [phone] (Work) Consulting Physician Behavioral Health 12/20/23 Special Education Bus Driver Relationship Specialty Start Date End Date Eliceo Gómez Jr., DO [address] [place] [address] PCP - General Family Medicine 12/11/19 Special Education Bus Driver Relationship Specialty Start Date End Date Eliceo Gómez Jr., DO [address] [place] [address] PCP - General Family Medicine 12/11/19 Special Education Bus Driver Relationship Specialty Start Date End Date Eliceo Gómez Jr., DO [address] [place] [address] PCP - General Family Medicine 12/11/19 [facility] [address] [facility] [address] [place] [phone] (Work) Consulting Physician Behavioral Health 12/20/23 Special Education Bus Driver Relationship Specialty Start Date End Date Eliceo Gómez Jr., DO [address] [place] [address] PCP - General Family Medicine 12/11/19 [facility] [address] [facility] [address] [place] [phone] (Work) Consulting Physician Behavioral Health 12/20/23 Special Education Bus Driver Relationship Specialty Start Date End Date Eliceo Gómez Jr., DO [address] [place] [address] PCP - General Family Medicine 12/11/19 [facility] [address] [facility] [address] [place] Consulting Physician Behavioral Health 12/20/23 Special Education Bus Driver Relationship Specialty Start Date End Date Eliceo Gómez Jr., DO [address] [place] [address] PCP - General Family Medicine 12/11/19 [place] [address] [facility] [address] [place] Consulting Physician Behavioral Health 12/20/23 Special Education Bus Driver Relationship Specialty Start Date End Date Eliceo Gómez DO [address] [place] [address] PCP - General Family Medicine 04/04/23 Eliceo Gómez DO [address] [place] [address] PCP - [facility] 05/06/2310/05 Dipti Acevedo, DO [address] [place] [address] Referring Physician Obstetrics and Gynecology 05/20/24 Special Education Bus Driver Relationship Specialty Start Date End Date Eliceo Gómez DO [address] [place] [address] PCP - General Family Medicine 04/04/23 Eliceo Gómez, [address] [place] [address] PCP - [facility] 05/06/2310/05 Dipti Acevedo, DO [address] [place] [address] Referring Physician Obstetrics and Gynecology 05/20/24 Special Education Bus Driver Relationship Specialty Start Date End Date Eliceo Gómez Jr., DO [address] [place] [address] PCP - General Family Medicine 12/11/19 Jenna Butler [address] Consulting Physician Behavioral Health 12/20/23 Goals (unrecognized [...] BE BASED ON THE PRIMARY CLINICAL RECORDS. [employer] [facility]. provides no warranty or guarantee of the accuracy or completeness of information in this document.
--- NOTE | 2025-01-30 08:02 | PM.CN ---
Consult Note: HPI Data of Consult Patient: known to practice within the last 3 years Requesting Physician: Monica Burns NP Primary Care Provider: Isatu CASTRO Consult Narrative Reason for consult: f/u Narrative: aMry Lael a pleasant 54 year old female presents for evaluation of middle and low back pain. since last visit significant improvement in low back and SIJ pain, >80% improvement from bilateral SIJ injection on 01/20/25. Pain today 6/10 aching burning stabbing increased with twisting, pushing, pulling, standing, walking, lifting, bending in the thoracic spine. Pain improved with heat. failed tylenol, baclofen, flexeril and ibuprofen, following with rheumatology for new dx of fibromyalgia as well as OA, started on LDN for FM and chronic pain. continues to engage in provider guided HEP, has completed >6 weeks of therapy without improvement. prior imaging of thoracic and lumbar spine consistent with degenerative changes. no advanced imaging available of thoracic spine. pt reports past history of shingles in her 40s. cc:: CC: Monica Burns NP Review of Systems ROS Status of ROS 10 or more systems reviewed and unremarkable except as noted in history and below Musculoskeletal Reports: back pain PFSH PFSH Medical History (Updated 01/30/25 @ 08:05 by Monica Burns NP) Strain of muscle(s) and tendon(s) of peroneal muscle group at lower leg level, right leg, initial encounter ?S86.311A - Strain of muscle(s) and tendon(s) of peroneal muscle group at lower leg level, right leg, initial encounter (ICD-10) Pain in right ankle and joints of right foot ?M25.571 - Pain in right ankle and joints of right foot (ICD-10) Primary osteoarthritis, right ankle and foot ?M19.071 - Primary osteoarthritis, right ankle and foot (ICD-10) Overactive bladder ?N32.81 - Overactive bladder (ICD-10) Insomnia ?G47.00 - Insomnia, unspecified (ICD-10) Bipolar disorder ?F31.9 - Bipolar disorder, unspecified (ICD-10) Gastroparesis ?K31.84 - Gastroparesis (ICD-10) Panic attacks ?F41.0 - Panic disorder [episodic paroxysmal anxiety] (ICD-10) OCD (obsessive compulsive disorder) ?F42.9 - Obsessive-compulsive disorder, unspecified (ICD-10) COVID-19 ?U07.1 - COVID-19 (ICD-10) Migraine ?G43.909 - Migraine, unspecified, not intractable, without status migrainosus (ICD-10) Gastritis ?K29.70 - Gastritis, unspecified, without bleeding (ICD-10) GERD (gastroesophageal reflux disease) ?K21.9 - Gastro-esophageal reflux disease without esophagitis (ICD-10) Peroneal tendinitis ?M76.70 - Peroneal tendinitis, unspecified leg (ICD-10) Posterior tibial tendon dysfunction ?M76.829 - Posterior tibial tendinitis, unspecified leg (ICD-10) Painful orthopaedic hardware ?T84.84XA - Pain due to internal orthopedic prosthetic devices, implants and grafts, initial encounter (ICD-10) Post op infection ?T81.40XA - Infection following a procedure, unspecified, initial encounter (ICD-10) Restless leg syndrome ?G25.81 - Restless legs syndrome (ICD-10) Tibialis anterior tendon tear, traumatic ?S86.219A - Strain of muscle(s) and tendon(s) of anterior muscle group at lower leg level, unspecified leg, initial encounter (ICD-10) Osteoarthritis ?M19.90 - Unspecified osteoarthritis, unspecified site (ICD-10) Back pain ?M54.9 - Dorsalgia, unspecified (ICD-10) Sleep disorder ?G47.9 - Sleep disorder, unspecified (ICD-10) PTSD (post-traumatic stress disorder) ?F43.10 - Post-traumatic stress disorder, unspecified (ICD-10) Depression ?F32.A - Depression, unspecified (ICD-10) Anxiety ?F41.9 - Anxiety disorder, unspecified (ICD-10) Sleep apnea ?G47.30 - Sleep apnea, unspecified (ICD-10) Asthma ?J45.909 - Unspecified asthma, uncomplicated (ICD-10) Constipation ?K59.00 - Constipation, unspecified (ICD-10) High cholesterol ?E78.00 - Pure hypercholesterolemia, unspecified (ICD-10) Hypertension ?I10 - Essential (primary) hypertension (ICD-10) Female rectocele with enterocele ?N81.6 - Rectocele (ICD-10) ?K46.9 - Unspecified abdominal hernia without obstruction or gangrene (ICD-10) 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 - Other specified functional intestinal disorders (ICD-10) Surgical History S/P foot surgery ?Z98.890 - Other specified postprocedural states (ICD-10) H/O cervical spine surgery ?Z98.890 - Other specified postprocedural states (ICD-10) S/P placement of nerve stimulator (01/02/24) ?Z96.82 - Presence of neurostimulator (ICD-10) S/P placement of nerve stimulator ?Z96.82 - Presence of neurostimulator (ICD-10) History of ankle surgery (11/13/23) ?Z98.890 - Other specified postprocedural states (ICD-10) H/O tooth extraction ?K08.409 - Partial loss of teeth, unspecified cause, unspecified class (ICD-10) H/O foot surgery (05/12/23) ?Z98.890 - Other specified postprocedural states (ICD-10) History of appendectomy (1987) ?Z90.49 - Acquired absence of other specified parts of digestive tract (ICD-10) History of colonoscopy ?Z98.890 - Other specified postprocedural states (ICD-10) History of colectomy (03/2022) ?Z90.49 - Acquired absence of other specified parts of digestive tract (ICD-10) History of tonsillectomy and adenoidectomy ?Z90.89 - Acquired absence of other organs (ICD-10) History of hysterectomy (2014) ?Z90.710 - Acquired absence of both cervix and uterus (ICD-10) History of arthroplasty of right ankle ?Z98.890 - Other specified postprocedural states (ICD-10) History of repair of rotator cuff ?Z98.890 - Other specified postprocedural states (ICD-10) S/P ankle ligament repair (2020) ?Z98.890 - Other specified postprocedural states (ICD-10) Family History Other Family history of Alzheimer's disease Family history of coronary artery disease Family history of heart disease Family history of hypertension Social History Within the past year, how often did you have a drink containing alcohol: never Score interpretation: A score less than 3 is consistent with normal alcohol consumption. 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 Highest level of school completed/degree received: some college, no degree Little interest or pleasure in doing things: not at all Feeling down, depressed, or hopeless: not at all Feel stressed/tense/nervous/anxious/difficulty sleeping: only a little Due to disability, difficulty making decisions: No Do you think of yourself as: straight/heterosexual Gender Identity: female Meds Home Medications and Allergies Home Medications ?Medication ?Instructions ?Recorded ?Confirmed ?Type ropinirole 1 mg tablet 1 mg PO QAM 05/04/23 01/20/25 History ropinirole 2 mg tablet 2 mg PO QPM 05/04/23 01/20/25 History fluticasone fur. 100 mcg-umeclid 1 inh inhalation Q24H 11/03/23 01/20/25 History 62.5 mcg-vilant 25 mcg inhalat.powder (Trelegy Ellipta) aripiprazole 300 mg suspension, 300 mg IM Q28D 05/17/24 01/20/25 History extended rel. intramuscular syringe (Lolis Mainreba) atenolol 50 mg tablet 50 mg PO Q24H 05/17/24 01/20/25 History losartan 25 mg tablet 25 mg PO DAILY 05/17/24 01/20/25 History omeprazole 40 mg capsule,delayed 40 mg PO DAILY 05/17/24 01/20/25 History release daridorexant 50 mg tablet (Quviviq) mg PO .hs 08/01/24 History galcanezumab-gnlm 120 mg/mL mg subcut 12/26/24 History subcutaneous pen injector (Emgality Pen) lisdexamfetamine 60 mg capsule 60 mg PO DAILY 12/26/24 01/20/25 History (Vyvanse) mirtazapine 15 mg tablet 15 mg PO .HS 12/26/24 01/20/25 History naltrexone 1.5 mg capsule mg PO 12/26/24 History Allergies Allergy/AdvReac Type Severity Reaction Status Date / Time risperidone (From Risperdal) AdvReac Mild breast Verified 01/20/25 10:09 nipples leak Exam Constitutional Documenting provider has reviewed patient's vital signs: yes Common normals: no apparent distress, oriented x3, healthy appearing, alert and well nourished General appearance: cooperative HENMT Common normals: normocephalic, hearing grossly normal bilaterally and moist oral mucous membranes Head and scalp: normocephalic Eye Common normals: PERRL Pupil: PERRL Neck & C-Spine Common normals: full ROM General: normal visual inspection Chest Common normals: inspection of chest normal Respiratory Common normals: normal respiratory effort, no retractions and no use of accessory muscles Back & Pelvis Thoracic spine/upper back: ROM limited, pain with ROM and thoracic spinal tenderness Lumbar spine/lower back: lumbar ROM normal; no pain with ROM, no lumbar spinal tenderness and no paraspinal muscle tenderness Sacroiliac joints: SI joints normal Other: bilateral negative arcelia(patricks), gaenslens, thigh thrust, compression test sensation intact BLE strength 5/5 in BLE thoracic tenderness noted to bilateral T7-12 greater on the left than right. notable sensitivity and hyperalgesia following T7-10 dermatomal pattern to the left Neuro Common normals: oriented x3, CN's II-XII intact bilaterally, moves all extremities, no focal motor deficits, no sensory deficits noted and deep tendon reflexes 2+ bilaterally Sensorium/orientation: alert Motor exam: strength 5/5 throughout and no movement abnormalities noted Psych Common normals: mental status grossly normal, thought process normal, cooperative, affect normal, speech normal and activity/motor behavior normal Speech: normal speech Thought process: normal thought process Results Additional Findings Additional findings: If on a controlled substance or opioids, I have checked an [place] report on this patient and there are no aberrancies noted in the prescribing history.??If on a controlled substance or opioid a drug screen was completed and reviewed within the last year, and if there has not been a drug screen completed we ordered one today to monitor higher risk, state monitored pain medication use. As part of providing excellent, safe, comprehensive care, the following was completed at our patient's visit: 1. A medication reconciliation and review to ensure accurate knowledge of current/active medications, including asking our patients to inform us about any ruax-rjp-dnehfag medications or herbal remedies/nutritional supplements/alternative remedies. 2. A review to specifically ensure our patients have had annual screening for screening for depression, screening for tobacco use, and screening for unhealthy alcohol use. For concerning screenings had a discussion with the patient, provided patient education, and recommended follow-up with primary care provider when appropriate. If patient noted with a risk of falling, they received education on strength, gait, and balance training to prevent future risk of falling. Portions of this note may have been carried over from the previous visit and updated as appropriate. Please note this office utilizes paper charting in addition to the electronic medical record. A list of current medications, vitals, and PMH is available there as the clinical staff outside of myself do not have access to [facility] charting during the clinic day operations. As part of providing quality comprehensive care the current medications, vitals, and PMH were reviewed in the paper chart. Assessment and Plan Assessment and Plan (1) Intercostal neuralgia: (2) Thoracic radiculopathy: (3) Bilateral sacroiliitis: (4) Thoracic back pain: (5) Myofascial pain: (6) Lumbar spondylosis: Plan 54 year old female with longstanding hx of middle and low back pain unresponsive to >6 weeks of provider guided HEP, heat, ice, tylenol, and NSAIDs. prior xray imaging of thoracic and lumbar spine consistent with degenerative changes. update thoracic MRI without contrast to assess for thoracic disc bulge or stenosis causing her radicular symptoms in consideration of thoracic BIMAL, spinal cord stim, or potentially intercostal nerve blocks/RFA start lidocaine patch 5% 12 hours on 12 hours off to affected area declining alternative muscle relaxer, continue meloxicam as ordered continue HEP as tolerated f/u to review thoracic MRI
== END 2025-01-30 07:39 | disposition home or self-care (01) ==
LOC: PM 07:38
PROVIDERS: PCP Family Medicine; Visit Provider Nurse Practitioner
DX: G58.0 Intercostal neuropathy (principal); M46.1 Sacroiliitis, not elsewhere classified; M54.6 Pain in thoracic spine; M79.18 Myalgia, other site; M47.816 Spondylosis without myelopathy or radiculopathy, lumbar region
CPT/HCPCS: G0463

== ENCOUNTER 2025-03-06 07:45 | Outpatient (OUT) | payer MEDICARE, MEDICAID, SELFPAY ==
--- NOTE | 2025-03-06 07:46 | PM.CN ---
Consult Note: HPI Data of Consult Patient: known to practice within the last 3 years Requesting Physician: Monica Burns NP Primary Care Provider: Isatu CASTRO Consult Narrative Reason for consult: f/u Narrative: Mary Leal a pleasant 54 year old female presents for evaluation of middle and low back pain. Pain today 7/10 aching burning stabbing increased with twisting, pushing, pulling, standing, walking, lifting, bending in the thoracic spine. Pain improved with heat and lidocaine. failed tylenol, baclofen, flexeril and ibuprofen, following with rheumatology for new dx of fibromyalgia as well as OA, started on LDN for FM and chronic pain. continues to engage in provider guided HEP, has completed >6 weeks of therapy without improvement. prior imaging of thoracic and lumbar spine consistent with degenerative changes. recent thoracic MRI consistent with multilevel changes and stenosis at T8-10. pt reports past history of shingles in her 40s. cc:: CC: Monica Burns NP Review of Systems ROS Status of ROS 10 or more systems reviewed and unremarkable except as noted in history and below Musculoskeletal Reports: back pain PFSH PFSH Medical History (Updated 01/30/25 @ 08:05 by Monica Burns NP) Strain of muscle(s) and tendon(s) of peroneal muscle group at lower leg level, right leg, initial encounter ?S86.311A - Strain of muscle(s) and tendon(s) of peroneal muscle group at lower leg level, right leg, initial encounter (ICD-10) Pain in right ankle and joints of right foot ?M25.571 - Pain in right ankle and joints of right foot (ICD-10) Primary osteoarthritis, right ankle and foot ?M19.071 - Primary osteoarthritis, right ankle and foot (ICD-10) Overactive bladder ?N32.81 - Overactive bladder (ICD-10) Insomnia ?G47.00 - Insomnia, unspecified (ICD-10) Bipolar disorder ?F31.9 - Bipolar disorder, unspecified (ICD-10) Gastroparesis ?K31.84 - Gastroparesis (ICD-10) Panic attacks ?F41.0 - Panic disorder [episodic paroxysmal anxiety] (ICD-10) OCD (obsessive compulsive disorder) ?F42.9 - Obsessive-compulsive disorder, unspecified (ICD-10) COVID-19 ?U07.1 - COVID-19 (ICD-10) Migraine ?G43.909 - Migraine, unspecified, not intractable, without status migrainosus (ICD-10) Gastritis ?K29.70 - Gastritis, unspecified, without bleeding (ICD-10) GERD (gastroesophageal reflux disease) ?K21.9 - Gastro-esophageal reflux disease without esophagitis (ICD-10) Peroneal tendinitis ?M76.70 - Peroneal tendinitis, unspecified leg (ICD-10) Posterior tibial tendon dysfunction ?M76.829 - Posterior tibial tendinitis, unspecified leg (ICD-10) Painful orthopaedic hardware ?T84.84XA - Pain due to internal orthopedic prosthetic devices, implants and grafts, initial encounter (ICD-10) Post op infection ?T81.40XA - Infection following a procedure, unspecified, initial encounter (ICD-10) Restless leg syndrome ?G25.81 - Restless legs syndrome (ICD-10) Tibialis anterior tendon tear, traumatic ?S86.219A - Strain of muscle(s) and tendon(s) of anterior muscle group at lower leg level, unspecified leg, initial encounter (ICD-10) Osteoarthritis ?M19.90 - Unspecified osteoarthritis, unspecified site (ICD-10) Back pain ?M54.9 - Dorsalgia, unspecified (ICD-10) Sleep disorder ?G47.9 - Sleep disorder, unspecified (ICD-10) PTSD (post-traumatic stress disorder) ?F43.10 - Post-traumatic stress disorder, unspecified (ICD-10) Depression ?F32.A - Depression, unspecified (ICD-10) Anxiety ?F41.9 - Anxiety disorder, unspecified (ICD-10) Sleep apnea ?G47.30 - Sleep apnea, unspecified (ICD-10) Asthma ?J45.909 - Unspecified asthma, uncomplicated (ICD-10) Constipation ?K59.00 - Constipation, unspecified (ICD-10) High cholesterol ?E78.00 - Pure hypercholesterolemia, unspecified (ICD-10) Hypertension ?I10 - Essential (primary) hypertension (ICD-10) Female rectocele with enterocele ?N81.6 - Rectocele (ICD-10) ?K46.9 - Unspecified abdominal hernia without obstruction or gangrene (ICD-10) 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 - Other specified functional intestinal disorders (ICD-10) Surgical History S/P foot surgery ?Z98.890 - Other specified postprocedural states (ICD-10) H/O cervical spine surgery ?Z98.890 - Other specified postprocedural states (ICD-10) S/P placement of nerve stimulator (01/02/24) ?Z96.82 - Presence of neurostimulator (ICD-10) S/P placement of nerve stimulator ?Z96.82 - Presence of neurostimulator (ICD-10) History of ankle surgery (11/13/23) ?Z98.890 - Other specified postprocedural states (ICD-10) H/O tooth extraction ?K08.409 - Partial loss of teeth, unspecified cause, unspecified class (ICD-10) H/O foot surgery (05/12/23) ?Z98.890 - Other specified postprocedural states (ICD-10) History of appendectomy (1987) ?Z90.49 - Acquired absence of other specified parts of digestive tract (ICD-10) History of colonoscopy ?Z98.890 - Other specified postprocedural states (ICD-10) History of colectomy (03/2022) ?Z90.49 - Acquired absence of other specified parts of digestive tract (ICD-10) History of tonsillectomy and adenoidectomy ?Z90.89 - Acquired absence of other organs (ICD-10) History of hysterectomy (2014) ?Z90.710 - Acquired absence of both cervix and uterus (ICD-10) History of arthroplasty of right ankle ?Z98.890 - Other specified postprocedural states (ICD-10) History of repair of rotator cuff ?Z98.890 - Other specified postprocedural states (ICD-10) S/P ankle ligament repair (2020) ?Z98.890 - Other specified postprocedural states (ICD-10) Family History Other Family history of Alzheimer's disease Family history of coronary artery disease Family history of heart disease Family history of hypertension Social History Within the past year, how often did you have a drink containing alcohol: never Score interpretation: A score less than 3 is consistent with normal alcohol consumption. 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 Highest level of school completed/degree received: some college, no degree Little interest or pleasure in doing things: not at all Feeling down, depressed, or hopeless: not at all Feel stressed/tense/nervous/anxious/difficulty sleeping: only a little Due to disability, difficulty making decisions: No Do you think of yourself as: straight/heterosexual Gender Identity: female Meds Home Medications and Allergies Home Medications ?Medication ?Instructions ?Recorded ?Confirmed ?Type ropinirole 1 mg tablet 1 mg PO QAM 05/04/23 01/20/25 History ropinirole 2 mg tablet 2 mg PO QPM 05/04/23 01/20/25 History fluticasone fur. 100 mcg-umeclid 1 inh inhalation Q24H 11/03/23 01/20/25 History 62.5 mcg-vilant 25 mcg inhalat.powder (Trelegy Ellipta) aripiprazole 300 mg suspension, 300 mg IM Q28D 05/17/24 01/20/25 History extended rel. intramuscular syringe (Abilifsteven Maintena) atenolol 50 mg tablet 50 mg PO Q24H 05/17/24 01/20/25 History losartan 25 mg tablet 25 mg PO DAILY 05/17/24 01/20/25 History omeprazole 40 mg capsule,delayed 40 mg PO DAILY 05/17/24 01/20/25 History release daridorexant 50 mg tablet (Quviviq) mg PO .hs 08/01/24 History galcanezumab-gnlm 120 mg/mL mg subcut 12/26/24 History subcutaneous pen injector (Emgality Pen) lisdexamfetamine 60 mg capsule 60 mg PO DAILY 12/26/24 01/20/25 History (Vyvanse) mirtazapine 15 mg tablet 15 mg PO .HS 12/26/24 01/20/25 History naltrexone 1.5 mg capsule mg PO 12/26/24 History Allergies Allergy/AdvReac Type Severity Reaction Status Date / Time risperidone (From Risperdal) AdvReac Mild breast Verified 01/20/25 10:09 nipples leak Exam Constitutional Documenting provider has reviewed patient's vital signs: yes Common normals: no apparent distress, oriented x3, healthy appearing, alert and well nourished General appearance: cooperative HENMT Common normals: normocephalic, hearing grossly normal bilaterally and moist oral mucous membranes Head and scalp: normocephalic Eye Common normals: PERRL Pupil: PERRL Neck & C-Spine Common normals: full ROM General: normal visual inspection Chest Common normals: inspection of chest normal Respiratory Common normals: normal respiratory effort, no retractions and no use of accessory muscles Back & Pelvis Thoracic spine/upper back: ROM limited, pain with ROM and thoracic spinal tenderness Lumbar spine/lower back: lumbar ROM normal; no pain with ROM, no lumbar spinal tenderness and no paraspinal muscle tenderness Sacroiliac joints: SI joints normal Other: bilateral negative arcelia(patricks), gaenslens, thigh thrust, compression test sensation intact BLE strength 5/5 in BLE thoracic tenderness noted to bilateral T7-12 greater on the left than right. notable sensitivity and hyperalgesia following T7-10 dermatomal pattern to the left>right Neuro Common normals: oriented x3, CN's II-XII intact bilaterally, moves all extremities, no focal motor deficits and deep tendon reflexes 2+ bilaterally Sensorium/orientation: alert Motor exam: strength 5/5 throughout and no movement abnormalities noted Psych Common normals: mental status grossly normal, thought process normal, cooperative, affect normal, speech normal and activity/motor behavior normal Speech: normal speech Thought process: normal thought process Results Additional Findings Additional findings: If on a controlled substance or opioids, I have checked an [place] report on this patient and there are no aberrancies noted in the prescribing history.??If on a controlled substance or opioid a drug screen was completed and reviewed within the last year, and if there has not been a drug screen completed we ordered one today to monitor higher risk, state monitored pain medication use. As part of providing excellent, safe, comprehensive care, the following was completed at our patient's visit: 1. A medication reconciliation and review to ensure accurate knowledge of current/active medications, including asking our patients to inform us about any [id number] medications or herbal remedies/nutritional supplements/alternative remedies. 2. A review to specifically ensure our patients have had annual screening for screening for depression, screening for tobacco use, and screening for unhealthy alcohol use. For concerning screenings had a discussion with the patient, provided patient education, and recommended follow-up with primary care provider when appropriate. If patient noted with a risk of falling, they received education on strength, gait, and balance training to prevent future risk of falling. Portions of this note may have been carried over from the previous visit and updated as appropriate. Please note this office utilizes paper charting in addition to the electronic medical record. A list of current medications, vitals, and PMH is available there as the clinical staff outside of myself do not have access to [employer] charting during the clinic day operations. As part of providing quality comprehensive care the current medications, vitals, and PMH were reviewed in the paper chart. Assessment and Plan Assessment and Plan (1) Intercostal neuralgia: (2) Thoracic radiculopathy: (3) Thoracic back pain: (4) Bilateral sacroiliitis: (5) Myofascial pain: (6) Lumbar spondylosis: Plan 54 year old female with longstanding hx of middle and low back pain unresponsive to >6 weeks of provider guided HEP, heat, ice, tylenol, and NSAIDs. prior xray imaging of thoracic and lumbar spine consistent with degenerative changes. proceed with bilateral T8,9 T9,10 intercostal nerve block in consideration of RFA continue lidocaine patch 5% 12 hours on 12 hours off to affected area declining alternative muscle relaxer, continue meloxicam as ordered continue HEP as tolerated f/u after injection, can consider intercostal RFA vs SCS trial
== END 2025-03-06 07:46 | disposition home or self-care (01) ==
LOC: PM 07:45
PROVIDERS: PCP Family Medicine; Visit Provider Nurse Practitioner
DX: M54.14 Radiculopathy, thoracic region (principal); M54.6 Pain in thoracic spine; M46.1 Sacroiliitis, not elsewhere classified; M79.18 Myalgia, other site; M47.816 Spondylosis without myelopathy or radiculopathy, lumbar region
CPT/HCPCS: G0463

== ENCOUNTER 2025-03-17 09:28 | Day surgery (SDC) | payer MEDICARE, MEDICAID, SELFPAY ==
[2025-03-17 10:33] VITALS: BP 132/88; PULSE 70; TEMP 36.6; O2SAT 99
[2025-03-17 11:03] VITALS: BP 126/61; PULSE 67; O2SAT 100
[2025-03-17 11:04] VITALS: BP 131/61; PULSE 67; O2SAT 100
[2025-03-17] MEDS: BUPIVACAINE HCL 0.25% PF 25 MG/10 ML VIAL 9 ML INJ (11:08)
[2025-03-17] MEDS: METHYLPREDNISOLONE ACETATE 40 MG/ML VIAL IM (11:09)
--- NOTE | 2025-03-17 11:09 | W.PM.PROCNOT ---
Date of procedure: 03/17/25 Pre-op diagnosis: Pain due to thoracic spondylosis without myelopathy Post-op diagnosis: same as pre-op Procedure: Procedure: Bilateral T8-9, 9-10 medial branch block Medications: Bupivacaine 0.25% 6cc The patient was seen and examined in the preoperative holding area.? An informed consent was obtained and placed on the chart.? The patient was brought to the medical procedure unit and placed in the prone position.? A timeout was completed verifying correct patient, procedure site, positioning, plan, and special equipment.? Using aseptic technique, the needle was placed at left T8. Under direct fluoroscopic visualization a Quincke-tipped spinal needle was advanced to the junction of the superior articulating process with the transverse process at the designated medial branch segment.? Preceded by negative aspiration, the above-mentioned injectate was placed in 1 mL aliquots.? The procedure was repeated at left T9, 10.? The needle was removed and insertion site was covered. The same procedure, at the same levels, was completed on the right side. The patient was taken to the postprocedural recovery area and monitored for an appropriate length of time before found suitable for discharge in the company of a responsible adult. Anesthesia: Local Surgeon: Ace Ahumada Pathology: none sent Condition: stable Disposition: no change
== END 2025-03-17 11:11 | disposition home or self-care (01) ==
LOC: SURGOUT 09:29
PROVIDERS: PCP Family Medicine; Visit Provider Anesthesiology
DX: M47.814 Spondylosis without myelopathy or radiculopathy, thoracic region (principal)
CPT/HCPCS: 64420; 64421; J0665; J1010

== ENCOUNTER 2025-04-02 07:38 | Outpatient (OUT) | payer OTHER, MEDICARE, SELFPAY ==
--- OUTSIDE RECORDS SUMMARY | 2024-12-10 07:30 | XMS_ITS ---
Author Organization [facility] in [place] Address [address] [place] [address] Care Team Providers Care Cops Name Role Phone Rigo Grant DO Primary Care Provider Jacob Ahuja Unavailable [phone] REASON FOR VISIT rt foot Medications Medication [...] nonsmoker Section Notes: Never Smoked Vital Signs Height 64 in 12/10/2024 Temperature 97.2 degrees Fahrenheit 12/10/19 25 Heart Rate 75 /min 12/10/2024 Oximetry 98 % 12/10/2024 Encounters Encounter Location Date Provider Diagnosis [facility] (PODIATRY) [address] [place] [address] [place] [address] 12/10/2024 Jacob Felix Pain due to bone [...] Mary FUENTES DDOB:[birth year] (54 yo F)Acc No.[id number]:12/10/2024 Follow Up Patient: Mary ROSADO Provider: Leo Felix DPM, MS :1970 A ge:54 Y S ex:Female Date:12/10/2024 Address:[address] [place] [address] [address] [facility] [id number] Pcp:Rigo Grant, DO Check In:11:31 AM [...] M usculoskeletal: Bone/Joint Symptoms d enies. C intermediate Pain d enies.?Leg cramps d enies. N [...] bedtime Orally Once a day Requip Trelegy Ellipta(Pvazvhhqtxb-Acfpiefdh-Rhkipb) 100-62.5-25 MCG/ACT Aerosol Powder Breath Activated Inhalation [...] Once a day Taking Requip Taking Trelegy Ellipta(Xzgdzywapar-Ryjwsrzwf-Tsrlmt) 100-62.5-25 MCG/ACT Aerosol Powder Breath Activated Inhalation [...] 12/10/2024 Generated for Philippe ardon/Osmin/Nilay on: 0 04/02/2025 07:43 AM EDT History and Physical Notes [...]
--- OUTSIDE RECORDS SUMMARY | 2024-12-12 10:47 | XMS_ITS | Continuity of Care Document ---
Author Organization [facility] Address [address] [place] [address] Phone Care Team Providers Care Ground Support Equipment Mechanic Name Role Phone Litzy HILL, Anibal Unavailable [...] Prophylaxis Adult Nutrit Couns For Control Of [place] Dis Nov Oral Hygiene Instruction Oral Hygiene Instruction Qcsqoucne-weyjmopchw-hvop Additional Oct Bitewig-single Film Limited Oral Eval Bitewings Four Films Intraoral-periapical 1st Film Prophylaxis Adult Moderate Risk Nutrit Couns For Control Of [place] Dis Jan Oral Hygiene Instruction Nutrit Couns For Control Of [place] Dis Sep No Charge Limited Oral Eval Extract; Erupted Th/exposted Rt - 021 Djguxhkmy-xxwsuucvxe-ihot Additional Aug [employer] Couns For Control Of [place] Dis Aug Pfizer COVID Vaccine Admin Dose [...] Diagnoses Date Provider Providers Copied on Encounter [facility], [address] [place] [address], [id number], [place] tel:[phone] Dental Clinic risa (chief complaint) Encounter for screening for dental disorders Litzy HILL Anibal. [address] [place] [address], [id number] , [place]. tel:[phone] [facility], [address] [place] [address], [id number], [place] tel:[phone] Dental Clinic risa (chief complaint) Body mass index [BMI] 25.0-25.9, adultEncounter for screening for dental disorders Litzy HILL Anibal. [address] [place] [address], [id number] , [place]. tel:[phone] [facility], [address] [place] [address], [id number], [place] tel:[phone] Dental Clinic dental new (chief complaint) Encounter for screening for dental disorders Litzy HILL Anibal. [address] [place] [address], [id number] , [place]. tel:[phone] [facility], [address] [place] [address], [id number], [place] tel:[phone] Dental Clinic DL (chief complaint) Encounter for screening for dental disorders Dolores HILL Prosper. [address] [place] [address], [id number], [place]. tel:[phone] [facility], [address] [place] [address], [id number], [place] tel:[phone] Dental Clinic PRO (chief complaint) Encounter for screening for dental disorders Catrachita Rutledge. . tel:+ [phone] [facility], [address], [place], [id number], [place] tel:[phone] Dental Clinic filling (chief complaint) Encounter for screening for dental disorders Abdiel Mac. [address] [place], [address], [place]. tel:+ [phone] [facility], [address], [place], [id number], [place] tel:[phone] Dental Clinic filling (chief complaint) Encounter for screening for dental disorders Abdiel Mac. [address] [place], [address], [place]. tel:+ [phone] [facility], [address] [place] [address], [id number], [place] tel:[phone] COVID ECHD No Information Regina Camacho. [address], [place], [id number] , [place]. tel: [phone] [facility], [address] [place] [address], [id number], [place] tel:[phone] Dental Clinic Ext. (chief complaint) Encounter for screening for dental disorders Abdiel Mac. [address] [place], [address], [place]. tel:+ [phone] [facility], [address], [place], [id number], [place] tel:[phone] COVID ECHD Encounter for screening for dental disorders Regina Camacho. [address], [place], [id number] , [place]. tel:+ [phone] [facility], [address], [place], [id number], [place] tel:[phone] Dental Clinic Encounter for screening for dental disorders Abdiel Mac. [address] [place], [address], [place]. tel:[phone] [facility], [address], [place], [id number], [place] tel:[phone] Dental Clinic dental limited (chief complaint) Encounter for screening for dental disorders Yogesh Arreaga. [address], [place], [id number] , [place]. tel:[phone] [facility], [address] [place] [address], [id number], [place] tel:[phone] Dental Clinic Dental New (chief complaint) Encounter for screening for dental disorders Yogesh Arreaga. [address], [place], [id number] , [place]. tel:[phone] [facility], [address] [place] [address], [id number], [place] tel:[phone] Dental Clinic Encounter for screening for dental disorders Yogesh Arreaga. [address], [place], [id number] , [place]. tel:[phone] [facility], [address] [place] [address], [id number], [place] tel:[phone] [facility] No Information Visci DO Chuy. [address], [place], [id number] , [place]. [phone] Family History Family Member Type Diagnosis Age At Onset Father Problem (finding) hypertension Mother Problem (finding) dementia Father Problem (finding) atrial fibrillation Immunizations Vaccine Date Status Comments Pfizer COVID administered Source: New Imm unization Record Pfizer COVID administered Source: New Imm unization Record Payers Payer name Insurance type Covered constitution party ID Authorsofiaa lauro(s) D [facility] Dental Dual Elig [id number] D Medicaid Crossover [id number] [place] [facility] [employer]FC 190 [id number] Medicaid Wrap - [facility] [id number] [place] [facility] 190 [id number] Social History Type Description Quantity Date Captured [...] Due on due Goal Colonoscopy. Due on 023 due Goal Colonoscopy. Due on due Goal [...] Information Instructions Date Instruction Additional Infor mation Dietary management e ducation, guidance, and counseling Related to Body mass index [BMI] 25.0-25.9, adult Giving encouragement to exercise Related to Body mass index [BMI] 25.0-25.9, adult Assessments Type Assessment Date No Information Patient Care Teams Name Effective Dates (start - stop) Status Members No Information
--- OUTSIDE RECORDS SUMMARY | 2025-01-03 04:45 | XMS_ITS ---
Author Organization [facility] in [place] Address [address] [place] [address] Care Team Providers Care Otr Owner Operator Name Role Phone Rigo Grant DO Primary Care Provider Jacob Ahuja Unavailable [phone] Allergies No Known Allergies Reason For Referral Reason Compression stocking s Diagnosis 1 Right foot pain (M79 .671) Referral Organization [facility] (PODIATRY) Referring Provider First Name Jacob Referring [...] Encounters Encounter Location Date Provider Diagnosis [facility] (PODIATRY) [address] [place] [address] [place] [address] 01/03/2025 Jacob [facility] Posterior tibial tendon dysfunction (PTTD) of right [...] well as stretching exercises. Finally I prescribed Apex 5/325 1 by mouth every 6 hours [...] well as stretching exercises. Finally I prescribed Apex 5/325 1 by mouth every 6 hours [...] Mary FUENTES DDOB:[birth year] (54 yo F)Acc No.[id number]:01/03/2025 Follow Up Patient: Siria CUEVA Mary Kenny Provider: Leo Felix DPM MS :1970 A ge:54 Y S ex:Female Date:01/03/2025 Address:[address] [place] [address] [id number] Pcp:Rigo Grant, DO Check In:08:45 AM ESTCheck [...] bedtime Orally Once a day Requip Trelegy Ellipta(Raqpuqtfudp-Xgqhqgahy-Byqitz) 100-62.5-25 MCG/ACT Aerosol Powder Breath Activated Inhalation [...] Once a day Taking Requip Taking Trelegy Ellipta(Dgwdylyajel-Chnzimlto-Kehpfh) 100-62.5-25 MCG/ACT Aerosol Powder Breath Activated Inhalation [...] 01/03/2025 Generated for Philippe ardon/Osmin/Stephanieitting on: 0 04/02/2025 07:41 AM EDT History and Physical Notes [...]
--- OUTSIDE RECORDS SUMMARY | 2025-01-03 05:38 | XMS_ITS ---
Author Organization [facility] in [place] Address [address] [place] [address] Care Team Providers Care Furnace Cooler Name Role Phone Rudy LOAIZARigo Primary Care Provider Jacob Ahuja [phone] REASON FOR VISIT pain medication Medications Medication SIG (Take, Route, Frequency, Duration) Notes Start Date End Date Status HYDROcodone-Acetaminophen 5-325 MG 1 tablet as needed Orally every 6 hrs for 7 days 01/03/2025 Active Encounters Encounter Location Date Provider Diagnosis [facility] (PODIATRY) [address] [place] [address] [place] [address] 01/03/2025 Jacob Felix Plan Of Treatment Medication Medication Name Sig Start Date Stop Date Notes HYDROcodone-Acetaminophen 5- 325 MG 1 tablet as needed Orally every 6 hrs for 7 days 01/03/2025 Progress Notes * Mary FUENTES DDOB:[birth year] (54 yo F)Acc No.[id number]:01/03/2025 Patient: Siria Mary CUEVA :1970 A ge:54 Y S ex:Female Address:[place] [address] * Refills Start HYDROcodone-Acetaminophen Tablet, 5-325 MG, Orally, 28 Tablet, 1 tablet as needed, every 6 hrs, 7 days, Refills=0 * true * Date: Generated for Printi ng/Faxing/eTransmitting on: 0 04/02/2025 07:41 AM EDT
--- OUTSIDE RECORDS SUMMARY | 2025-04-02 07:41 | XMS_ITS | Clinical Summary ---
Author Organization [facility] Address [id number] [address] [place] [address] Care Team Providers Care Can Labeler Name Role Phone Dalia Morales DO Eliceo Braden Primary Care Provider + Allergies Active Allergy Reactions Criticality Noted Date Comments Risperidone Other (See Comments) Low 08/28/2020 My Boobs Leak Medications rOPINIRole (REQUIP) 2 mg tablet Take 1 tablet (2 mg total) by mouth nightly. 1 mg in the morning 11/29/19 20 Active dexlansoprazole (DEXILANT) 60 mg capsuleIndicati ons:gastroesoph ageal reflux disease Take 1 capsule (60 mg total) by mouth in the morning. Indications: gastroesophageal reflux disease. Active fluticasone-ume clidin-vilanter (TRELEGY ELLIPTA) 100-62.5-25 mcg blister with deviceIndicatio ns:Asthma, unspecified asthma severity, unspecified whether complicated, unspecified whether persistent Inhale 1 puff in the morning. 60 each 5 05/31/20 22 Active atenoloL (TENORMIN) 25 mg tabletIndicatio ns:hypertension Take 1 tablet (25 mg total) by mouth in the morning. Indications: high blood pressure. Active lamoTRIgine (LaMICtal) 25 mg tablet Take 1 tablet (25 mg total) by mouth in the morning. Active daridorexant 50 mg tablet Take 50 mg by mouth nightly. Active VYVANSE 30 mg capsule Take 1 capsule (30 mg total) by mouth. 10/20/20 23 Active ARIPiprazole (ABILIFY MAINTENA) 300 mg suspension,exte nded rel recon Inject 1.5 mL (300 mg total) into the appropriate muscle every 28 days. Active fremanezumab-vf rm (AJOVY AUTOINJECTOR) 225 mg/1.5 mLIndications:O ther migraine without status migrainosus, not intractable inject 1 AND 1/2 milliliters subcutaneously every 28 DAYS 1.5 mL 5 10/23/20 23 Active Additional Information Patient taking differently: subcutaneous, inject 1 AND 1/2 milliliters subcutaneously every 28 DAYS, Reported on 12/20/2023 rimegepant 75 mg tablet,disinteg ratingIndicatio ns:Other migraine without status migrainosus, not intractable Dissolve 1 tablet on tongue daily as needed (Migraine headache). 12 tablet 4 10/23/20 Active galcanezumab-gn lm 120 mg/mL pen injectorIndicat ions:Other migraine without status migrainosus, not intractable Inject 120 mg under the skin every 30 (thirty) days. 1 mL 3 12/11/19 Active Hospital, Clinic, or Other Facility Administered Medication Ordered Dose Route Frequency Start Date End Date Status albuterol (PROVENTIL,VENTOLIN) nebulizer solution 2.5 mgIndications:Asthma, unspecified asthma severity, unspecified whether complicated, unspecified whether persistent 2.5 mg nebu As needed 08/26/2022 Active Active Problems Problem Noted Date Diagnosed Date CHUCKIE (obstructive sleep apnea) 08/29/2023 Chronic interstitial cystitis 04/06/2023 Arthritis 04/06/2023 B12 deficiency 10/23/2022 Migraine 10/23/2022 Chronic sinusitis 07/07/2022 Chronic idiopathic constipation 03/15/2022 Gastroparesis 11/24/2021 Overview (09/07/2023): Last Assessment & Plan: Assessment: recommended for above surgery Last Assessment & Plan: Assessment: patient reports this was later ruled out with capsule endoscopy. 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 Reports she did takes Prednisone x 5 days on August 30, but denies requiring hospitalization. Denies residual SOB or cough Basal cell carcinoma (BCC) of chest 04/04/2023 09/07/2023 Hyperlipidemia 04/04/2023 09/07/2023 Lingual tonsil hypertrophy 05/18/2021 0 07/07/2022 Chronic tonsillitis 01/11/2021 07/07/20 22 Atopic dermatitis 04/09/2020 09/07/2023 Encounters Date Type Department Care Team Description 01/25/2025 Orders Only [facility] [address] [place] [address] Pauline Christensen MD from Last 3 Months Family History Medical History Relation Name Comments Atrial fibrillation Father Heart failure Father Dementia Mother Hypertension Mother Colon cancer Other Alcohol abuse Sister Drug abuse Sister Liver disease Sister Anesthesia problems Neg Hx Relation Name Status Comments Father Mother Other Sister Alive Social History Tobacco Use Types Packs/Day Years Used Date Smoking Tobacco: Never Smokeless Tobacco: Never Alcohol Use Standard Drinks/Week Comments Not Currently 0 (1 standard drink = 0.6 oz pur e alcohol) AUDIT-C Answer Date Recorded Frequency of Alcohol Consumption Never 12/11/2019 Average Number of Drinks Not on file 020 Frequency of Binge Drinking Not on file 03/2020 PHQ-2 Answer Date Recorded Total Score 0 10/23/2023 Childcare Answer Date Recorded Childcare Unknown 04/17/2019 Employment Answer Date Recorded Employment Unknown 04/17/2019 Hunger Screening Answer Date Recorded Within the past 12 months we worried whether our food would run out before we got money to buy more. Never True 12/20/2023 Within the past 12 months th e food we bought just didn't last and we didn't have money to get more. Never True 12/20/2023 Purpose - Life Answer Date Recorded Purpose and direction in life Unknown Comments No Sex and Gender Information Value Date Recorded Sex Assigned at Female 07/28/2020 6:39 PM EDT Legal Sex Female 12:08 PM EDT Gender Identity Female 07/28/2020 6:39 PM EDT Sexual Orientation Not on file Last Filed Vital Signs Vital Sign Reading Time Taken Comments Blood Pressure 116/76 01/02/2024 4:00 PM EST Pulse 94 01/02/2024 3:15 PM EST Temperature 36.1 C (97 F) 01/02/2024 3:35 PM EST Respiratory Rate 16 01/02/2024 4:00 PM EST Oxygen Saturation 93% 01/02/2024 4:00 PM EST Inhaled Oxygen Concentration - - Weight 73.7 kg (162 lb 7.7 oz) 01/10/2024 12:40 PM EST Height 162.6 cm (5' 4 ) 01/10/2024 12:40 PM EST Body Mass Index 27.89 01/10/2024 12:40 PM EST Plan of Treatment Health Maintenance Due Date Last Done Comments Zoster (Shingles) Vaccine (2 of 2) 05/31/2024 04/05/2024 COVID-19 Vaccine (2023-2 5 season) 2024 11/24/2021, 05/11/2021, 04/20/2021 Depression Screening 10/23/2024 10/23/2023 Adult BMI Screening 01/09/2025 01/10/2024 Tobacco Screening 01/09/2025 01/10/2024 Influenza Vaccine 07/07/2025 12/21/2023, , 09/02/2020, Additional history exists DTaP,Tdap and Td Vaccines (2 - Td or Tdap) 06/22/2030 06/22/2020 Medical Devices Implanted Type Area Metal Bonding Crib Attendant Device Identifier Shelf Expiration Date Model / Serial / Lot Generator Nrstm - [id number] Implanted:Qty: 1 on 01/02/2024 by Cullen Dawkins MD at [facility] Generator Right: Neck [employer] 09/20/2026 [id number] / [id number] / Lead Ns Respiratory - [id number] Implanted:Qty: 1 on 01/02/2024 by Cullen Dawkins MD at [facility] Implant Lead Right: Neck [employer] 10/20/2026 [id number] / [id number] / Lead Nrstm Inspr 3 Elect Cuf Tnl Boni Strl Lf - [id number] - [id number] Implanted:Qty: 1 on 01/02/2024 by Cullen Dawkins MD at [facility] Neuro Stimulator Right: Neck [employer] 07/19/2026 [id number] / [id number] / Insurance [place] [employer] Care Teams Can Labeler Relationship Specialty Start Date End Date Eliceo Gómez Jr., [address] [place] [address], [id number] [place] [address] PCP - General Family Medicine 12/11/19 Jenna Butler [address] Consulting Physician Behavioral Health 12/20/23
--- OUTSIDE RECORDS SUMMARY | 2025-04-02 07:41 | XMS_ITS | Encounter Summary ---
Author Organization [facility] Address [address] [place] [address] Care Team Providers Care Cleaner And Trimmer Name Role Phone Eliceo Gómez DO Primary Care Provider [phone] Eliceo Gómez DO Unavailable [phone] Beata Hernandez Unavailable Juan Damico DO Unavailable [phone] Encounter Details Date Type Department Care Team (Late st Contact Info) Description 12/14/2023 Clinisync Result Encounter [facility] External Department Unsolicited Provider, Generic External Data Social History Tobacco Use Types Packs/Day Years Used Date Smoking Tobacco: Never Smokeless Tobacco: Never Alcohol Use Standard Drinks/Week Comments Never 0 (1 standard drink = 0.6 oz pur e alcohol) caffeine: 1-2 cups per day Humiliation, Afraid, Rape, and Kick questionnair e Answer Date Recorded Within the last year, have y ou been afraid of your partner or ex-partner? No 04/14/2023 Within the last year, have y ou been humiliated or emotionally abused in other ways by your partner or ex-partner? No Within the last year, have y ou been kicked, hit, slapped, or otherwise physically hurt by your partner or ex-partner? No 04/14/2023 Within the last year, have y ou been raped or forced to have any kind of sexual activity by your partner or ex-partner? No 04/14/2023 Social Connection and Isolation Panel [NHANES] A nswer Date Recorded In a typical week, how many times do you talk on the phone with family, friends, or neighbors? Twice a week 04/14/20 How often do you get togethe r with friends or relatives? Never 04/14/2023 How often do you attend chur ch or adventist services? Never 04/14/2023 Do you belong to any clubs o r organizations such as sabianist groups, unions, fraternal or athletic groups, or school groups? No 04/14/2023 How often do you attend meet ings of the clubs or organizations you belong to? Never 04/14/2023 Are you , , di vorced, , never , or living with a partner? Living with partner 04/14/2023 AUDIT-C Answer Date Recorded Q1: How often do you have a drink containing alcohol? Never 04/14/2023 Q2: How many drinks containi ng alcohol do you have on a typical day when you are drinking? Patient does not drink Q3: How often do you have si x or more drinks on one occasion? Never 04/14/2023 Overall Financial Resource Strain (CARDIA) Answe r Date Recorded How hard is it for you to pa y for the very basics like food, housing, medical care, and heating? Not hard at all 04/14/2023 PHQ-2 Answer Date Recorded Patient Health Questionnaire-2 Score 0 10/03/2023 [facility] - Occupational Stress Questionnaire Answer Date Recorded Do you feel stress - tense, restless, nervous, or anxious, or unable to sleep at night because your mind is troubled all the time - these days? Very much 04/14/2023 Exercise Vital Sign Answer Date Recorde d On average, how many days pe r week do you engage in moderate to strenuous exercise (like a brisk walk)? 0 days 04/14/2023 On average, how many minutes do you engage in exercise at this level? 0 min 04/14/2023 Hunger Vital Sign Answer Date Recorded Within the past 12 months, y ou worried that your food would run out before you got the money to buy more. Never true 04/14/20 23 Within the past 12 months, t he food you bought just didn't last and you didn't have money to get more. Never true 04/14/2023 PRAPARE - Transportation Answer Date Re corded In the past 12 months, has l ack of transportation kept you from medical appointments or from getting medications? No 07/2023 In the past 12 months, has l ack of transportation kept you from meetings, work, or from getting things needed for daily living? No 04/14/2023 Housing Stability Vital Sign Answer Melecio e Recorded In the last 12 months, was t here a time when you were not able to pay the mortgage or rent on time? No 10/25/2023 In the last 12 months, how many places have you lived? 1 10/25/2023 In the last 12 months, was t here a time when you did not have a steady place to sleep or slept in a fpc (including now)? No 10/25/2023 Comments No Sex and Gender Information Value Date Recorded Sex Assigned at Female 03/13/2023 7:50 AM EDT Legal Sex Female 7:14 PM EDT Gender Identity Female 01/18/2023 7:14 PM EDT Sexual Orientation Not on file documented as of this encounter Plan of Treatment Upcoming Encounters Date Type Department Care Team (Late st Contact Info) Description 04/30/2025 4:00 PM EDT Procedure Visit [facility] [address] [place] [phone] Yo Galeas DO [address] [place] [address] 11/20/2025 8:30 AM EST Office Visit [facility] [address] [place] [phone] Nelsy Harris, REVENUE MANAGER-WEB PAGE DEVELOPER [address] [place] [address] documented as of this encounter Procedures Procedure Name Priority Date/Time Associated Diagnosis Comments XR SACRUM COCCYX 2+ VIEWS 12/14/2023 1:52 PM EST documented in this encounter Results * XR sacrum coccyx 2+ views (12/14/2023 1:52 PM EST) Anatomical Region Laterality Modality Sacrum, Coccyx Radiographic Ira ging 12/14/2023 1:52 PM EST Narrative 12/14/2023 1:54 PM EST [address] [address] XRay Report Signed Patient: MARY FUENTES MR#: [id number] : 1970 Acct:[id number] Age/Sex: 53 / F ADM Date: 12/14/23 Loc: RAD Attending Dr: Ace Ahumada M.D. Ordering Physician: Ace Ahumada M.D. Date of Service: 12/14/23 Procedure(s): XR sacrum coccyx min 2V Accession Number(s): [id number] cc: Ace Ahumada M.D.; Isatu GÓMEZ [place] [address] Patient Name: MARY FUENTES MRN: [id number] date: 1970 Sex: F Assigned Patient Location: [facility] Current Patient Location: [facility] Accession/Order Number: [id number] Exam Date: 12/14/2023 13:00 Report Date: 12/14/2023 13:52 At the request of: ACE AHUMADA Procedure: XR sacrum coccyx min 2V EXAMINATION: XR lumbar spine 6V w bending, XR sacrum coccyx min 2V HISTORY: Lumbar Stenosis With Neurogenic Claudication COMPARISON: No relevant comparison available. FINDINGS: BONES: Normal alignment with no acute fracture or spondylolisthesis. Mild degenerative spondylosis and facet osteoarthropathy DISC SPACES: Normal. No significant disc height narrowing, subluxation, or endplate abnormality. PARASPINOUS: Negative. No paraspinous abnormality is seen. OTHER: Negative. XR/XR sacrum coccyx min 2V IMPRESSION: Mild degenerative changes with no acute abnormality of the lumbar or sacral spine Electronically authenticated by: NICKI DACOSTA Date: 12/14/2023 13:52 Dictated By: Nicki Dacosta M.D. Signed By: 12/14/23 1354 DD/ 51 TD/TT: Dental Intern: Procedure Note Radiology, Radiologist, - 12/14/[address] [address] XRay Report Signed Patient: MARY FUENTES DMR#: [id number] : 1970Acct:[id number] Age/Sex: 53 / FADM Date: 12/14/23 Loc: RAD Attending Dr: Ace Ahumada M.D. Ordering Physician: Ace Ahumada M.D. Date of Service: 12/14/23 Procedure(s): XR sacrum coccyx min 2V Accession Number(s): [id number] cc: Ace Ahumada M.D.; Isatu GÓMEZ [address] [address] Patient Name: MARY FUENTES MRN: [facility]:[id number] date: 1970 Sex: F Assigned Patient Location: [facility] Current Patient Location: [facility] Accession/Order Number: [id number] Exam Date: 12/14/2023 13:00 Report Date: 12/14/2023 13:52 At the request of: ACE AHUMADA Procedure: XR sacrum coccyx min 2V EXAMINATION: XR lumbar spine 6V w bending, XR sacrum coccyx min 2V HISTORY: Lumbar Stenosis With Neurogenic Claudication COMPARISON: No relevant comparison available. FINDINGS: BONES: Normal alignment with no acute fracture or spondylolisthesis. Mild degenerative spondylosis and facet osteoarthropathy DISC SPACES: Normal. No significant disc height narrowing, subluxation, or endplate abnormality. PARASPINOUS: Negative. No paraspinous abnormality is seen. OTHER: Negative. XR/XR sacrum coccyx min 2V IMPRESSION: Mild degenerative changes with no acute abnormality of the lumbar orsacral spine Electronically authenticated by: NICKI DACOSTA Date: 12/14/2023 13:52 Dictated By: Nicki Dacosta M.D. Signed By:12/14/231353 DD/ 51 TD/TT: Dental Intern: us Generic External Data Provider IMG XR PROCEDURES Final Result documented in this encounter Visit Diagnoses Not on filedocumented in this encounter Care Teams Cleaner And Trimmer Relationship Specialty Start Date End Date Eliceo Gómez DO [address] [place] [address] PCP - General Family Medicine 04/04/23 Eliceo Gómez DO [address] [place] [address] PCP - [facility] 05/06/2310/05 Beata Hernandez PA [address] [place] [address] Dietitian Nutrition 08/08/23 05/16/24 Juan Damico DO [address] [place] [address] Referring Physician Obstetrics and Gynecology 05/20/24 documented as of this encounter
--- OUTSIDE RECORDS SUMMARY | 2025-04-02 07:41 | XMS_ITS | Encounter Summary ---
Author Organization [facility] Address [address] [facility] [place] [address] Care Team Providers Care Meteorological Aide Name Role Phone Eliceo Gómez DO Primary Care Provider [phone] Eliceo Gómez DO Unavailable [phone] Juan Damico DO Unavailable [phone] Encounter Details Date Type Department Care Team (Late st Contact Info) Description 08/28/2024 Abstract [facility] [address] [facility] [address] [place] [phone] Eliceo Gómez DO [address] [facility] [address] [place] [address] Social History Tobacco Use Types Packs/Day Years Used Date Smoking Tobacco: Never Smokeless Tobacco: Never Alcohol Use Standard Drinks/Week Comments Never 0 (1 standard drink = 0.6 oz pur e alcohol) caffeine: 1-2 cups per day B1300 Health Literacy Answer Date Recor ded How often do you need to hav e someone help you when you read instructions, pamphlets, or other written material from your doctor or pharmacy? Never 05/01/2024 Humiliation, Afraid, Rape, and Kick questionnair e [...] or ex-partner? No 04/14/2023 Social Connection and Isolat ion Panel [NHANES] Answer Date Recorded In a typical week, how many times do you talk on the phone with family, friends, or neighbors? More than three times a week 05/01/2024 How often do you get togethe r with friends or relatives? More than three times a week 05/01/2024 How often do you attend chur or scientology services? Never 05/01/2024 Do you belong to any clubs o r organizations such as spiritism groups, unions, fraternal or athletic groups, or school groups? No 05/01/2024 How often do you attend meet ings of the clubs or organizations you belong to? Never 05/01/2024 Are you , , di vorced, , never , or living with a partner? 05/01/2024 AUDIT-C Answer Date Recorded Q1: How often do you have a drink containing alcohol? Never 06/12/2024 Q2: How many drinks containi ng alcohol do you have on a typical day when you are drinking? Patient does not drink Q3: How often do you have si x or more drinks on one occasion? Never 06/12/2024 Overall Financial Resource Strain (CARDIA) Answe r Date Recorded How hard is it for you to pa y for the very basics like food, housing, medical care, and heating? Somewhat hard 05/01/2024 PHQ-2 Answer Date Recorded Patient Health Questionnaire-2 Score 0 07/11/2024 [facility] - Occupational Stress Questionnaire Answer Date Recorded Do you feel stress - tense, restless, nervous, or anxious, or unable to sleep at night because your mind is troubled all the time - these days? Rather much 05/01/2024 Exercise Vital Sign Answer Date Recorde d On average, how many days pe r week do you engage in moderate to strenuous exercise (like a brisk walk)? 2 days 05/01/2024 On average, how many minutes do you engage in exercise at this level? 10 min 05/01/2024 Hunger Vital Sign Answer Date Recorded Within the past 12 months, y ou worried that your food would run out before you got the money to buy more. Sometimes true Within the past 12 months, t he food you bought just didn't last and you didn't have money to get more. Sometimes true PRAPARE - Transportation Answer Date Re corded In the past 12 months, has l ack of transportation kept you from medical appointments or from getting medications? No 04/07 In the past 12 months, has l ack of transportation kept you from meetings, work, or from getting things needed for daily living? No 05/01/2024 Housing Stability Vital Sign Answer Melecio e [...] place to sleep or slept in a [place] (including now)? No 10/25/2023 Housing Stability Vital Sign Answer Melecio e Recorded In the last 12 months, was t here a time when you were not able to pay the mortgage or rent on time? No 05/01/2024 In the past 12 months, how m any times have you moved where you were living? 1 05/01/2024 At any time in the past 12 m [facility], were you homeless or living in a [place] facility (including now)? No 05/01/2024 Comments No Sex and Gender Information Value Date Recorded Sex Assigned at Female 03/13/2023 7:50 AM EDT Legal Sex Female 7:14 PM EDT Gender Identity Female 01/18/2023 7:14 PM EDT Sexual Orientation Not on file documented as of this encounter Plan of Treatment Upcoming Encounters Date Type Department Care Team (Late st Contact Info) Description 04/30/2025 4:00 PM EDT Procedure Visit [facility] [address] [place] [phone] Yo Galeas DO [address] [facility] 11/20/2025 8:30 AM EST Office Visit [facility] [address] [place] [phone] Nelsy Harris, PEOPLESOFT CRM DEVELOPER-SITE PHYSICIAN [address] [place] [address] documented as of this encounter Visit Diagnoses Not on filedocumented in this encounter Care Teams Meteorological Aide Relationship Specialty Start Date End Date Eliceo Gómez DO [address] [place] [address] PCP - General Family Medicine 04/04/23 Eliceo Gómez DO [address] [place] [address] PCP - [facility] 05/06/2310/05 Juan Damico DO [address] [place] [address] Referring Physician Obstetrics and Gynecology 05/20/24 documented as of this encounter
--- OUTSIDE RECORDS SUMMARY | 2025-04-02 07:41 | XMS_ITS | Encounter Summary ---
Author Organization [facility] Address [id number] [address] [place] [address] Care Team Providers Care Enrichment Teacher Name Role Phone Dalia Morales DO, George R Primary Care Provider + Reason for Visit * Reason Onset Date Comments Med Refill 10/29/2020 Encounter Details Date Type Department Care Team (Late st Contact Info) Description 10/29/2020 Telephone [facility] [address] [facility] [address] [place] [phone] Guera Benson CNA Med Refill Social History Tobacco Use Types Packs/Day Years Used Date Smoking Tobacco: Never Smokeless Tobacco: Never Alcohol Use Standard Drinks/Week Comments Not Currently 0 (1 standard drink = 0.6 oz pur e alcohol) AUDIT-C Answer Date Recorded Frequency of Alcohol Consumption Never 12/11/2019 Average Number of Drinks Not on file 020 Frequency of Binge Drinking Not on file 03/2020 Childcare Answer Date Recorded Childcare Unknown 04/17/2019 Employment Answer Date Recorded Employment Unknown 04/17/2019 Comments No Sex and Gender Information Value Date Recorded Sex Assigned at Female 07/28/2020 6:39 PM EDT Legal Sex Female 12:08 PM EDT Gender Identity Female 07/28/2020 6:39 PM EDT Sexual Orientation Not on file COVID-19 Exposure Response Date Recorded In the last month, have you been in contact with someone who was confirmed or suspected to have Coronavirus / COVID-19? Unable to assess 10/06/2020 8:14 AM EST documented as of this encounter Miscellaneous Notes * Telephone Encounter - Guera Kelley, LICENSED AND CERTIFIED MIDWIFE - 10/29/2020 9:58 AM EST Amitiza samples and Trulance samples given to patient per Sharon Benson CNA 10/29/20 0959 documented in this encounter Plan of Treatment Not on file documented as of this encounter Visit Diagnoses Not on filedocumented in this encounter Care Teams Enrichment Teacher Relationship Specialty Start Date End Date Eliceo Gómez Jr., [address] [place] [address], [address] [address] PCP - General Family Medicine 12/11/19 Jenna Butler [address] Consulting Physician Behavioral Health 12/20/23 documented as of this encounter
--- OUTSIDE RECORDS SUMMARY | 2025-04-02 07:41 | XMS_ITS | Encounter Summary ---
Author Organization [facility] Address [address] [place] [address] Care Team Providers Care Oyster Opener Name Role Phone Shannon Gómez DO Primary Care Provider [phone] Reason for Visit * Reason Onset Date Comments Medication Refill 11/27/2024 Results 11/27/2024 Pt thought outsi de facility sent results adv we havent received anything and gave fax number of [phone]. Encounter Details Date Type Department Care Team (Late st Contact Info) Description 11/27/2024 Telephone Central Scheduling [address] [place] [address] Kelly Sidhu Medication Refill; Results (Pt thought outside facility sent results adv we havent received anything and gave fax number of [phone].) Social History Tobacco Use Types Packs/Day Years Used Date Smoking Tobacco: Never Smokeless Tobacco: Never Alcohol Use Standard Drinks/Week Comments Never 0 (1 standard drink = 0.6 oz pur e alcohol) Comments No Sex and Gender Information Value Date Recorded Sex Assigned at Not on file Legal Sex Female 7:54 AM EDT Gender Identity Female 09/25/2024 12:31 PM EST Sexual Orientation Straight 09/25/2024 12 :31 PM EST documented as of this encounter Miscellaneous Notes * Telephone Encounter - Mary Rojas RN - 11/27/2024 12:35 PM EST Please review labs or procedure results with patient, or you can send recommendations to Triage team MAKI Dhaliwal * Telephone Encounter - Kelly Sidhu - 11/27/2024 9:48 AM EST GHN RESULT REQUEST Provider: Lizy Pt calling to obtain results regarding the following Name of test/procedure: Gastroperesis Date when performed: 11/14/24(outside order) Best time to reach patient: Any *Patient has been notified that they will be contacted within 24-48 hours. * * Telephone Encounter - Kelly Sidhu - 11/27/2024 9:41 AM EST GHN REFILL REQUEST Provider: Lizy Name of Medication: omeprazole [address] capsule Vitamin D3 125 MCG (5000 UT) per tablet Verify dose and usage direction: Take 1 capsule by mouth daily. Last office visit: 10/23/24 Next office visit: refused to schedule Date of Last Labs: 06/30/24 Best time to reach patient: Any Does patient prefer 30 day or 90 day supply ? 90 PREFERRED PHARMACY IS ATTACHED TO ENCOUNTER [id number] [place] [address] [address] [facility] documented in this encounter Plan of Treatment Not on file documented as of this encounter Visit Diagnoses Not on filedocumented in this encounter Care Teams Oyster Opener Relationship Specialty Start Date End Date Shannon Gómez DO [address] [facility] [address] [place] [address] PCP - General Family Medicine 11/14/23 documented as of this encounter
--- OUTSIDE RECORDS SUMMARY | 2025-04-02 07:41 | XMS_ITS | Encounter Summary ---
Author Organization [facility] Address [address] [facility] [facility] [place] [address] Care Team Providers Care Automation Qa Analyst Name Role Phone Eliceo Gómez DO Primary Care Provider [phone] Eliceo Gómez DO Unavailable [phone] Juan Damico DO Unavailable [phone] Encounter Details Date Type Department Care Team (Late st Contact Info) Description 08/05/2024 Abstract [facility] [address] [facility] [address] [place] [address] Eliceo Gómez DO [address] [facility] [address] [place] [address] Social History Tobacco Use Types Packs/Day Years [...] How often do you attend chur or jain services? Never 05/01/2024 Do you belong to any clubs o r organizations such as christian groups, unions, fraternal or athletic groups, or [...] Recorded Patient Health Questionnaire-2 Score 0 07/11/2024 [facility] - Occupational Stress Questionnaire Answer Date [...] place to sleep or slept in a mcc (including now)? No 10/25/2023 Housing Stability Vital Sign Answer Melecio e Recorded In the last 12 months, was t here a time when you were not able to pay the mortgage or rent on time? No 05/01/2024 In the past 12 months, how m any times have you moved where you were living? 1 05/01/2024 At any time in the past 12 m [facility], were you homeless or living in a mcc (including now)? No 05/01/2024 Comments No Sex [...] 4:00 PM EDT Procedure Visit [facility] [address] [place] [phone] Yo Galeas DO [address] [facility] 11/20/2025 8:30 AM EST Office Visit [facility] [address] [place] [phone] Nelsy Harris, PRACTICE DIRECTOR-STRAND FORMING MACHINE OPERATOR [address] [place] [address] documented as of this encounter Visit Diagnoses Not on filedocumented in this encounter Care Teams Automation Qa Analyst Relationship Specialty Start Date End Date Eliceo Gómez DO [address] [place] [address] PCP - General Family Medicine 04/04/23 Eliceo Gómez DO [address] [place] [address] PCP - [facility] 05/06/2310/05 Juan Damico DO [address] [place] [address] Referring Physician Obstetrics and Gynecology 05/20/24 documented as of this encounter
--- OUTSIDE RECORDS SUMMARY | 2025-04-02 07:41 | XMS_ITS | Encounter Summary ---
Author Organization [employer] Address [id number] [address] [place] [address] Care Team Providers Care Fur Nailer Name Role Phone Dalia Morales DO, George R Primary Care Provider + Reason for Visit * Reason Onset Date Comments Med Refill 11/04/2020 Encounter Details Date Type Department Care Team (Late st Contact Info) Description 11/04/2020 Refill [facility] [address] [place] [phone] Demi Machado Chronic mixed headache syndrome (Primary Dx) Social History Tobacco Use Types Packs/Day Years [...] encounter Miscellaneous Notes * Telephone Encounter - Demi Machado - 11/04/2020 11:41 AM EST Received call today 11/04/20 11:42 from patient who states that she tried to get refill for Indomethacin SR 75 mg CR Capsule, but pharmacy told her it was discontinued. She said that Dr. Christensen had upped dosage to regular Indomethacin 25 mg capsule and Indomethacin 75 mg CR capsule x 2 daily. Please send med refill script to [facility] in [place] on [address] [facility] per patient's chart/request. Please call back and advise, callback#: [phone]. * Telephone Encounter - Jessi Franklin RN - 11/04/2020 11:41 AM EST Looks like script was pended/routed on 10/21/2020 per refill encounter dated 10/19/2020- not sure what happened to it after that. Indomethacin 75 mg BID script pended and re-routed to provider for approval and signature. Jessi Franklin RN 11/04/20 8852 documented in this encounter Plan of Treatment Not on file documented as of this encounter Visit Diagnoses Diagnosis Chronic mixed headache syndrome- Primary Other headache syndromes documented in this encounter Care Teams Fur Nailer Relationship Specialty Start Date End Date Eliceo Gómez Jr., [address] [place] [address], [address], [place] [address] PCP - General Family Medicine 12/11/19 Jenna Butler [address] Consulting Physician Behavioral Health 12/20/23 documented as of this encounter
--- OUTSIDE RECORDS SUMMARY | 2025-04-02 07:41 | XMS_ITS | Encounter Summary ---
Author Organization [facility] Address [address] [place] [address] Care Team Providers Care Yeast Culture Developer Name Role Phone Eliceo Gómez DO Primary Care Provider [phone] Eliceo Gómez DO Unavailable [phone] Beata Hernandez Unavailable Juan Damico DO Unavailable [phone] Encounter Details Date Type Department Care Team (Late st Contact Info) Description 12/25/2023 Abstract [facility] [address] [facility] [address] [place] [phone] Eliceo Gómez, DO [address] [facility] [address] [place] [address] Social History Tobacco Use Types Packs/Day Years [...] 04/14/2023 How often do you attend chur or episcopalian services? Never 04/14/2023 Do you belong to any clubs o r organizations such as restorationism groups, unions, fraternal or athletic groups, or [...] Recorded Patient Health Questionnaire-2 Score 0 10/03/2023 [facility] - Occupational Stress Questionnaire Answer Date [...] place to sleep or slept in a group home (including now)? No 10/25/2023 Comments No Sex [...] 04/30/2025 4:00 PM EDT Procedure Visit [facility] [address] [place] [phone] Yo Galeas DO [address] [place] [address] 11/20/2025 8:30 AM EST Office Visit [facility] [address] [place] [address] Nelsy Harris APRN-SENIOR RESEARCH EXECUTIVE [address] [place] [address] documented as of this encounter Visit Diagnoses Not on filedocumented in this encounter Care Teams Yeast Culture Developer Relationship Specialty Start Date End Date Eliceo Gómez, DO [address] [place] [address] PCP - General Family Medicine 04/04/23 Eliceo Gómez DO [address] [place] [address] PCP - [facility] 05/06/2310/05 Beata Hernandez PA [address] [place] [address] Dietitian Nutrition 08/08/23 05/16/24 Juan Damico DO [address] [place] [address] Referring Physician Obstetrics and Gynecology 05/20/24 documented as of this encounter
--- OUTSIDE RECORDS SUMMARY | 2025-04-02 07:41 | XMS_ITS | Encounter Summary ---
Author Organization [employer] Address [id number] [address] [place] [address] Care Team Providers Care Padding Machine Operator Name Role Phone Dalia Morales Eliceo Braden Primary Care Provider + Reason for Visit * Reason Comments Med Refill Encounter Details Date Type Department Care Team (Late st Contact Info) Description 10/19/2020 Refill [facility] [address] [place] [phone] Pauline Christensen MD [address] [place] [address], [facility] [address] [place] [address] Chronic mixed headache syndrome Social History Tobacco Use Types Packs/Day Years [...] encounter Miscellaneous Notes * Telephone Encounter - Pauline Christensen MD - 10/19/2020 4:15 PM EST Please inquire if Indocin is still helping, before refilling. Thanks * Telephone Encounter - Jessi Franklin RN - 10/19/2020 4:15 PM EST RN sent a [employer] message to patient (a modality with which she frequently communicates with this office) to inquire if the indomethacin is still helping. RN will update the refill request when response received. Jessi Franklin RN 10/20/20 0896 * Telephone Encounter - Jessi Franklin RN - 10/19/2020 4:15 PM EST Patient responded to [employer] message as below: It helps some days. But not all the time. Is it time for a change maybe? Please advise, and thank you. Jessi Franklin RN 10/20/20 0946 * Telephone Encounter - Pauline Christensen MD - 10/19/2020 4:15 PM EST If she is up to 175mg/day, that's already a patrica dose. Not much scope to increase. Thanks * Telephone Encounter - Jessi Franklin RN - 10/19/2020 4:15 PM EST Ok. Anything else to advise for pt MONTIEL besides sleep, water, rest, etc? Jessi Franklin RN 10/20/20 1113 * Telephone Encounter - Pauline Christensen MD - 10/19/2020 4:15 PM EST Yes, those general measures. She was supposed to see Dr. Linda (sleep psychologist) for insomnia- please inquire if she did that, and if she is still taking Dayvgo for insomnia. Thanks * Telephone Encounter - Jessi Franklin RN - 10/19/2020 4:15 PM EST Per another encounter (dated 09/23/2020) she started seeing Dr. Linda in mid- September. RN asked in [employer] message if she is still taking Dayvigo. Will await response. Jessi Franklin RN 10/20/20 1607 * Telephone Encounter - Jessi Franklin RN - 10/19/2020 4:15 PM EST Pt responded as below: Yes I'm still taking dayvigo every night. And I Am doing all those things you mentioned. Dr. Linda is going well still trying to figure out things.I want to to continue with the indomethacin it's working. Jessi Franklin RN 10/21/20 0856 * Telephone Encounter - Demi Machado - 10/19/2020 4:15 PM EST Received call today 10/21/20 9:30 from [facility] who states that both the scriptsfor patient's Indomethacin do not equal to 175 mg as is stated in the parentheses for dose instructions. They said they would need a new script for this. Their callback# if needed: . * Telephone Encounter - Jessi Franklin RN - 10/19/2020 4:15 PM EST Script with indomethacin 75 mg BID called in 08/07/2020 (superseding script called in 08/03/2020) wasdiscontinued by CECILIA Reyes for reason of duplicate listing . Unfortunately, other script for indomethacin 75 mg is once daily, not BID as patient is taking it. RN called [facility] at number below. RN spoke with pharmacist Marija. Marija stated she still had the script from 08/03/2020 that stated indomethacin 75 mg once daily. RN informed Marija anotherscript was sent 08/07/2020 for 75 mg BID. RN also informed Marija there was a note to pharmacy on that script that the 75 mg once daily was supposed to be cancelled. Marija stated she sees that now but d id not see it before. Marija did state that patient does not have any refills on BID indomethacin, however, and needs one. Marija did verbally cancel indomethacin once daily script sent 08/03/20 with RNwhile she was on the phone. Indomethacin BID script pended and routed to provider. Last filled 08/07/2020, dispense #60 with 1 refill. Jessi Franklin RN 10/21/20 1112 * Telephone Encounter - Jessi Franklin RN - 10/19/2020 4:15 PM EST Duplicate refill request for indomethacin 75 mg BID from [facility] still present in encounter. Please cancel [facility] refill request as RN is unable. Thank you. Jessi Franklin RN 12/23/20 1659 documented in this encounter Plan of Treatment Not on file documented as of this encounter Visit Diagnoses Diagnosis Chronic mixed headache syndrome Other headache syndromes documented in this encounter Care Teams Padding Machine Operator Relationship Specialty Start Date End Date Eliceo Gómez Jr., DO [address] [place] [address], [address] [address] PCP - General Family Medicine 12/11/19 Jenna Butler [address] [facility] [address] Consulting Physician Behavioral Health 12/20/23 documented as of this encounter
--- OUTSIDE RECORDS SUMMARY | 2025-04-02 07:41 | XMS_ITS | Clinical Summary ---
Author Organization [facility] Address [address] [place] [address] [place] [address] Care Team Providers Care Chrome Tanning Drum Operator Name Role Phone Shannon Gómez DO Primary Care Provider Allergies Active Allergy Reactions Criticality Noted Date Comments Risperidone 04/22/2019 Other Reaction(s): breast discharge Medications Atenolol 25 MG tablet Take 1 tablet by mouth Daily (with dinner). 07/07/20 23 Active rOPINIRole 1 MG tablet Take 1 tablet by mouth daily every morning. Active rOPINIRole 2 MG tablet Take 1 tablet by mouth at bedtime. Active Quviviq 50 MG tablet Take 25 mg by mouth Every night. Active Abilify Maintena 300 MG Prefilled Syringe IM injection inject INTRAMUSCULARLY ONCE A MONTH (BRING TO OFFICE FOR PROVIDER TO ADMINISTER) 02/26/20 24 Active Trelegy Ellipta 100-62.5-25 MCG/ACT Aerosol Powder, breath activated inhaler Inhalation for 30 Days 07/20/20 23 Active ferrous sulfate 325 (65 Fe) MG tablet Take 1 tablet by mouth every other day. 50 tablet 3 03/11/20 24 Active Losartan 25 MG tablet Take 1 tablet by mouth daily. 05/14/20 24 025 Active methylphenidate ER 54 MG tablet Take 1 tablet by mouth daily. 06/26/20 24 Active Multiple Vitamin (Multivitamin Adult) tablet Take 1 tablet by mouth daily. 90 tablet 3 08/09/20 24 Active Additional Information Patient not taking.Reported on 10/31/2024 fluvoxaMINE 50 MG tablet Take 1 tablet by mouth Every night. 10/10/20 24 Active estradiol 0.1 MG/GM cream APPLY 0.5G VAGINALLY TWICE WEEKLY. 03/14/20 24 Active Estradiol 1 MG tablet Take 1 tablet by mouth daily. 09/04/20 24 025 Active omeprazole [address] capsuleIndicati ons:[place] grade D esophagitis TAKE 1 CAPSULE BY MOUTH EVERY DAY 90 capsule 1 12/02/19 25 Active Natural Vitamin D-3 125 MCG (5000 UT) tablet TAKE 1 TABLET BY MOUTH EVERY DAY 90 tablet 2 12/26/19 25 Active colestipol 1 g tabletIndicatio ns:Chronic diarrhea Take 1 tablet by mouth 2 times daily. 60 tablet 3 03/18/20 25 Active colestipol 1 g tabletIndicatio ns:Chronic diarrhea Take 1 tablet by mouth 2 times daily. 60 tablet 3 10/23/20 24 025 Discontin ued(Reord er) Active Problems Problem Noted Date Diagnosed Date Pelvic floor dysfunction 10/25/2024 Gastroparesis 10/25/2024 GERD (gastroesophageal reflux disease) Chronic constipation 10/25/2024 History of colectomy 10/25/2024 Encounters Date Type Department Care Team Description 02/16/2025 Refill Gastroenterology and Hepatology [facility] [address] [place] [phone] Padmaja Ledezma MD, PhD Chronic diarrhea from Last 3 Months Family History Medical History Relation Name Comments Heart Failure Father Nelson Passed in st 2021 Hypertension Father Nelson Vision Problems Father Nelson Hypertension Mother Joanna Passed in Augob er of 2022 Vision Problems Mother Joanna Relation Name Status Comments Father Nelson Mother Joanna Social History Tobacco Use Types Packs/Day Years Used Date Smoking Tobacco: Never Smokeless Tobacco: Never Tobacco Cessation:Counseling Given: Not Answered Alcohol Use Standard Drinks/Week Comments Never 0 (1 standard drink = 0.6 oz pur e alcohol) Comments No Sex and Gender Information Value Date Recorded Sex Assigned at Not on file Legal Sex Female 7:54 AM EDT Gender Identity Female 09/25/2024 12:31 PM EST Sexual Orientation Straight 09/25/2024 12 :31 PM EST Last Filed Vital Signs Vital Sign Reading Time Taken Comments Blood Pressure 112/80 10/23/2024 10:43 AM EST Pulse 68 10/23/2024 10:43 AM EST Temperature 36.3 C (97.3 F) 08/07/2024 9:12 AM EDT Respiratory Rate 20 04/12/2024 1:10 PM EDT Oxygen Saturation 98% 10/23/2024 10:43 AM EST Inhaled Oxygen Concentration - - Weight 68 kg (150 lb) 10/31/2024 12:30 PM EST pt stated Height 162.6 cm (5' 4 ) 10/31/2024 12:30 PM EST pt stated Body Mass Index 25.75 10/31/2024 12:30 PM EST Plan of Treatment Health Maintenance Due Date Last Done Comments HEPATITIS C VIRUS SCREENING 1972 HIV SCREENING DISCUSSION 1987 CERVICAL CANCER SCREENING DISCUSSION 1993 LIPID SCREENING 2012 COLORECTAL CANCER SCREENING DISCUSSION 03/24/2021 03/24/2020, 03/06/2020 PNEUMOCOCCAL VACCINE SERIES (1 of 1 - PCV) 2022 ZOSTER (SHINGLES) VACCINE (2 of 2) 05/31/20242023 COVID-19 VACCINE (4 - 2023-2 5 season) 2024 11/24/2021, 05/11/2021, 04/20/2021 MAMMOGRAM SCREENING DISCUSSION 10/31/2024 1 01/01/2023, 09/14/2022, 06/28/2021, Additional history exists TETANUS 06/22/2030 06/22/2020 TDAP (ADULT) Completed 06/22/2020 HEP B VACCINE Completed 05/21/2024, 07/05/2008, 04/11/2008 INFLUENZA VACCINE Completed 07/01/2024, , 08/17/2022, Additional history exists Insurance MEDICAID MEDICARE UHC HMO Care Teams Chrome Tanning Drum Operator Relationship Specialty Start Date End Date Shannon Gómez DO [address] [facility] [address] [place] [address] PCP - General Family Medicine 11/14/23
--- OUTSIDE RECORDS SUMMARY | 2025-04-02 07:41 | XMS_ITS | Encounter Summary ---
Author Organization [employer] Address [id number] [address] [place] [address] Care Team Providers Care Senior Professional Services Consultant Name Role Phone Stephonmame Morales Eliceo Braden Primary Care Provider + Reason for Visit * Reason Comments Med Refill Encounter Details Date Type Department Care Team (Late st Contact Info) Description 01/09/2021 Refill [facility] [address] [place] [phone] Pauline Christensen MD [address] [place] [address], [facility] [address] [place] [address] Chronic mixed headache syndrome Social [...] Employment Answer Date Recorded Employment Unknown 04/17/2019 Purpose - Life Answer Date Recorded Purpose [...] or suspected to have Coronavirus / COVID-19? No / Unsure 01/11/2021 2:01 PM EST documented as of this encounter Miscellaneous Notes * Telephone Encounter - Pauline Christensen MD - 01/09/2021 9:25 AM EST Already sent documented in this encounter Plan of Treatment Not on file documented as of this encounter Visit Diagnoses Diagnosis Chronic mixed headache syndrome Other headache syndromes documented in this encounter Care Teams Senior Professional Services Consultant Relationship Specialty Start Date End Date Eliceo Gómez Jr., [address] [place] [address], [address], [place] [address] PCP - General Family Medicine 12/11/19 Jenna Butler [address] Consulting Physician Behavioral Health 12/20/23 documented as of this encounter
--- OUTSIDE RECORDS SUMMARY | 2025-04-02 07:41 | XMS_ITS | Encounter Summary ---
Author Organization [facility] Address [address] [place] [address] Care Team Providers Care Abrasive Mixer Name Role Phone Eliceo Gómez DO Primary Care Provider [phone] Eliceo Gómez DO Unavailable [phone] Juan Damico DO Unavailable [phone] Encounter Details Date Type Department Care Team (Late st Contact Info) Description 08/01/2024 Clinisync Result Encounter [facility] External Department Unsolicited [...] How often do you attend chur or confucianism services? Never 05/01/2024 Do you belong to any clubs o r organizations such as uatsdin groups, unions, fraternal or athletic groups, or [...] Recorded Patient Health Questionnaire-2 Score 0 07/11/2024 [facility] Occupat ional Health - Occupational Stress [...] place to sleep or slept in a senior care (including now)? No 10/25/2023 Housing Stability Vital [...] time in the past [address] [facility], were you homeless or living in a senior care (including now)? No 05/01/2024 Comments No Sex [...] 4:00 PM EDT Procedure Visit [facility] [address] [place] [phone] Yo Galeas DO [address] [place] [address] 11/20/2025 8:30 AM EST Office Visit [facility] [address] [place] [address] Nelsy Harris, BACK TENDER CYLINDER-EMAIL MARKETING EXECUTIVE [address] [place] [address] documented as of this encounter Procedures Procedure Name Priority Date/Time Associated Diagnosis Comments XR FOOT RT MIN 3V 08/01/2024 5:0 1 AM EDT documented in this encounter Results * XR FOOT RT MIN 3V (08/01/2024 5:01 AM EDT) Anatomical Region Laterality Modality Other 08/01/2024 5:01 AM EDT Narrative 08/01/2024 5:04 AM EDT [address] [address] XRay Report Signed Patient: MARY FUENTES MR#: [id number] : 1970 Acct:[id number] Age/Sex: 54 / F ADM Date: 07/30/24 Loc: EC Attending Dr: Sade Felix D.P.M. Ordering Physician: Sade Felix D.P.M. Date of Service: 07/30/24 Procedure(s): XR foot RT min 3V Accession Number(s): [id number] cc: Sade Felix D.P.M.; Isatu GÓMEZ [address] [address] Patient Name: MARY FUENTES MRN: [id number] date: 1970 Sex: F Assigned Patient Location: Current Patient Location: Accession/Order Number: [id number] Exam Date: 07/30/2024 09:46 Report Date: 08/01/2024 05:01 At the request of: SADE FELIX Procedure: XR foot RT min 3V PROCEDURE: XR foot RT min 3V HISTORY: RIGHT FOOT PAIN COMPARISON: XR foot right 07/09/2024 FINDINGS: BONES:Mechanical fusion of the talonavicular and talocalcaneal joints via multiple lag screws; no appreciable hardware fracture loosening. Prior anterior posterior calcaneal osteotomy and repair. Osteotomy and wedge placement within the medial cuneiform. Single screw within head of first metatarsal. No bone fracture or dislocation. No significant midfoot or forefoot joint space narrowing. SOFT TISSUES:No visible soft tissue swelling. EFFUSION:None visible. OTHER: Negative. XR/XR foot RT min 3V IMPRESSION: 1. Stable surgical changes without evidence of hardware failure or change in alignment. Electronically authenticated by: ADAM OLIVEROS Date: 08/01/2024 05:01 Dictated By: Adam Oliveros M.D. Signed By: 08/01/24 050 DD/ 050 TD/TT: Stained Glass Installer: Procedure Note Radiology, Radiologist, MD - 08/01/2024 [place] [address] XRay Report Signed Patient: MARY FUENTES DMR#: [id number] : 1970Acct:[id number] Age/Sex: 54 / FADM Date: 07/30/24 Loc: EC Attending Dr: Sade Felix D.P.M. Ordering Physician: Sade Felix D.P.M. Date of Service: 07/30/24 Procedure(s): XR foot RT min 3V Accession Number(s): [id number] cc: Sade Felix D.P.M.; Isatu GÓMEZ [place] [address] Patient Name: MARY FUENTES MRN: [id number] date: 1970 Sex: F Assigned Patient Location: Current Patient Location: Accession/Order Number: [id number] Exam Date: 07/30/2024 09:46 Report Date: 08/01/2024 05:01 At the request of: SADE FELIX Procedure: XR foot RT min 3V PROCEDURE: XR foot RT min 3V HISTORY: RIGHT FOOT PAIN COMPARISON: XR foot right 07/09/2024 FINDINGS: BONES:Mechanical fusion of the talonavicular and talocalcaneal joints via multiple lag screws; no appreciable hardware fracture loosening. Prior anterior posterior calcaneal osteotomy and repair. Osteotomy and wedge placementwithin the medial cuneiform. Single screw within head of first metatarsal. [place]one fracture or dislocation. No significant midfoot or forefoot joint space narrowing. SOFT TISSUES:No visible soft tissue swelling. EFFUSION:None visible. OTHER: Negative. XR/XR foot RT min 3V IMPRESSION: 1. Stable surgical changes without evidence of hardware failure or changein alignment. Electronically authenticated by: ADAM OLIVEROS Date: 08/01/2024 05:01 Dictated By: Adam Oliveros M.D. Signed By:08/01/24 0504 DD/ 050 TD/TT: Stained Glass Installer: Generic External Data Provider [facility] Final Result documented in this encounter Visit Diagnoses Not on filedocumented in this encounter Care Teams Abrasive Mixer Relationship Specialty Start Date End Date Eliceo Gómez DO [address] [place] [address] PCP - General Family Medicine 04/04/23 Eliceo Gómez DO [address] [place] [address] PCP - [facility] 05/06/2310/05 Juan Damico DO [address] [place] [address] Referring Physician Obstetrics and Gynecology 05/20/24 documented as of this encounter
--- OUTSIDE RECORDS SUMMARY | 2025-04-02 07:41 | XMS_ITS | Encounter Summary ---
Author Organization [facility] Address [address] [place] [address] Care Team Providers Care Vba Programmer Name Role Phone Eliceo Gómez DO Primary Care Provider [phone] Eliceo Gómez DO Unavailable [phone] Beata Hernandez Unavailable Juan Damico DO Unavailable [phone] Encounter Details Date Type Department Care Team (Late st Contact Info) Description 11/24/2023 Abstract [facility] FM [address] [facility] [address] [place] [phone] Eliceo Gómez, DO [address] [facility] [address] [place] [address] Social History Tobacco Use Types Packs/Day Years [...] How often do you attend chur or synagogue services? Never 04/14/2023 Do you belong to any clubs o r organizations such as denominational groups, unions, fraternal or athletic groups, or [...] Recorded Patient Health Questionnaire-2 Score 0 10/03/2023 [facility] Occupat ional Health - Occupational [...] place to sleep or slept in a skilled nursing (including now)? No 10/25/2023 Comments No Sex [...] 04/30/2025 4:00 PM EDT Procedure Visit [facility] [place] [address] [place] [phone] Yo Galeas DO [address] [place] [address] 11/20/2025 8:30 AM EST Office Visit [facility] [address] [place] [address] Nelsy Harris APRN-RETAIL DIRECTOR [address] [place] [address] documented as of this encounter Visit Diagnoses Not on filedocumented in this encounter Care Teams Vba Programmer Relationship Specialty Start Date End Date Eliceo Gómez, DO [address] [place] [address] PCP - General Family Medicine 04/04/23 Eliceo Gómez DO [address] [place] [address] PCP - [facility] 05/06/2310/05 Beata Hernandez PA [address] [place] [address] Dietitian Nutrition 08/08/23 05/16/24 Juan Damico DO [address] [place] [address] Referring Physician Obstetrics and Gynecology 05/20/24 documented as of this encounter
--- OUTSIDE RECORDS SUMMARY | 2025-04-02 07:41 | XMS_ITS | Encounter Summary ---
Author Organization [facility] Address [address] [facility] [place] [address] Care Team Providers Care Radio Time Buyer Name Role Phone Eliceo Gómez DO Primary Care Provider [phone] Eliceo Gómez DO Unavailable [phone] Juan Damico DO Unavailable [phone] Encounter Details Date Type Department Care Team (Late st Contact Info) Description 07/22/2024 Abstract [facility] [address] [facility] 230 [place] [address] Eliceo Gómez DO [address] [facility] 230 [place] [address] Social History Tobacco Use Types Packs/Day Years [...] How often do you attend chur or mandaen services? Never 05/01/2024 Do you belong to any clubs o r organizations such as sikh groups, unions, fraternal or athletic groups, or [...] Recorded Patient Health Questionnaire-2 Score 0 07/11/2024 [facility] of Occupat ionmd Health - Occupational Stress Questionnaire Answer Date [...] place to sleep or slept in a nursing home (including now)? No 10/25/2023 Housing Stability Vital Sign Answer Melecio e Recorded In the last 12 months, was t here a time when you were not able to pay the mortgage or rent on time? No 05/01/2024 In the past 12 months, how m any times have you moved where you were living? 1 05/01/2024 At any time in the past 12 m [facility], were you homeless or living in a nursing home (including now)? No 05/01/2024 Comments No Sex [...] Procedure Visit [facility] [address] [place] [phone] Yo Galeas DO [address] Karina [facility] 11/20/2025 8:30 AM EST Office Visit [facility] [address] [place] [phone] Nelsy Harris, BEHAVIORAL INSTRUCTOR-DIET TECH [address] [place] [address] documented as of this encounter Visit Diagnoses Not on filedocumented in this encounter Care Teams Radio Time Buyer Relationship Specialty Start Date End Date Eliceo Gómez DO [address] [place] [address] PCP - General Family Medicine 04/04/23 Eliceo Gómez DO [address] [place] [address] PCP - [facility] 05/06/2310/05 Juan Damico DO [address] [place] [address] Referring Physician Obstetrics and Gynecology 05/20/24 documented as of this encounter
--- OUTSIDE RECORDS SUMMARY | 2025-04-02 07:41 | XMS_ITS | Encounter Summary ---
Author Organization [facility] Address [address] [place] [address] Care Team Providers Care Patient Care Nursing Assistant Name Role Phone Eliceo Gómez DO Primary Care Provider [phone] Eliceo Gómez DO Unavailable [phone] Beata Hernandez Unavailable Juan Damico DO Unavailable [phone] Encounter Details Date Type Department Care Team [...] often do you attend chur ch or sikh services? Never 04/14/2023 Do you belong to any clubs o r organizations such as catholic groups, unions, fraternal or athletic groups, or [...] 0 10/03/2023 [facility] - Occupational Stress Questionnaire Answer Date Recorded [...] health care facility (including now)? No 10/25/2023 Comments No Sex [...] Description 04/30/2025 4:00 PM EDT Procedure Visit [facility] [address] [place] [phone] Yo Galeas DO [address] [place] [address] 11/20/2025 8:30 AM EST Office Visit [facility] [address] [place] [phone] Nelsy Harris, COMMODITY DIRECTOR-CORRECTIONAL MEDICINE PHYSICIAN [address] [place] [address] documented as of this encounter Procedures Procedure Name Priority Date/Time Associated Diagnosis Comments XR LUMBAR SPINE 6V W BENDING 12/14/2023 1:52 PM EST documented in this encounter Results * XR LUMBAR SPINE 6V W BENDING (12/14/2023 1:52 PM EST) Anatomical Region Laterality Modality Other 12/14/2023 1:52 PM EST Narrative 12/14/2023 1:54 PM EST [address] [address] XRay Report Signed Patient: MARY FUENTES MR#: [id number] : 1970 Acct:[id number] Age/Sex: 53 / F ADM Date: 12/14/23 Loc: RAD Attending Dr: Ace Ahumada M.D. Ordering Physician: Ace Ahumada M.D. Date of Service: 12/14/23 Procedure(s): XR lumbar spine 6V w bending Accession Number(s): [id number] cc: Ace Ahumada M.D.; Isatu GÓMEZ [place] [id number] Patient Name: MARY FUENTES MRN: [id number] date: 1970 Sex: F Assigned Patient Location: [facility] Current Patient Location: [facility] Accession/Order Number: [id number] Exam Date: 12/14/2023 13:00 Report Date: 12/14/2023 13:52 At the request of: ACE AHUMADA Procedure: XR lumbar spine 6V w bending EXAMINATION: XR lumbar spine 6V w bending, XR sacrum coccyx min 2V HISTORY: Lumbar Stenosis With Neurogenic Claudication COMPARISON: No relevant comparison available. FINDINGS: BONES: Normal alignment with no acute fracture or spondylolisthesis. Mild degenerative spondylosis and facet osteoarthropathy DISC SPACES: Normal. No significant disc height narrowing, subluxation, or endplate abnormality. PARASPINOUS: Negative. No paraspinous abnormality is seen. OTHER: Negative. XR/XR lumbar spine 6V w bending IMPRESSION: Mild degenerative changes with no acute abnormality of the lumbar or sacral spine Electronically authenticated by: NICKI DACOSTA Date: 12/14/2023 13:52 Dictated By: Nicki Dacosta M.D. Signed By: 12/14/23 1351 DD/ 1352 TD/TT: Manager Net: Procedure Note Radiology, Radiologist, - 12/14/2023 [address] [place] [id number] XRay Report Signed Patient: MARY FUENTES DMR#: [id number] : 1970Acct:[id number] Age/Sex: 53 / FADM Date: 12/14/23 Loc: RAD Attending Dr: Ace Ahumada M.D. Ordering Physician: Ace Ahumada M.D. Date of Service: 12/14/23 Procedure(s): XR lumbar spine 6V w bending Accession Number(s): [id number] cc: Ace Ahumada M.D.; Isatu GÓMEZ [address] [place] [id number] Patient Name: MARY FUENTES MRN: [facility]:[id number] date: 1970 Sex: F Assigned Patient Location: [facility] Current Patient Location: [facility] Accession/Order Number: [id number] Exam Date: 12/14/2023 13:00 Report Date: 12/14/2023 13:52 At the request of: ACE AHUMADA Procedure: XR lumbar spine 6V w bending EXAMINATION: XR lumbar spine 6V w bending, XR sacrum coccyx min 2V HISTORY: Lumbar Stenosis With Neurogenic Claudication COMPARISON: No relevant comparison available. FINDINGS: BONES: Normal alignment with no acute fracture or spondylolisthesis. Mild degenerative spondylosis and facet osteoarthropathy DISC SPACES: Normal. No significant disc height narrowing, subluxation, or endplate abnormality. PARASPINOUS: Negative. No paraspinous abnormality is seen. OTHER: Negative. XR/XR lumbar spine 6V w bending IMPRESSION: Mild degenerative changes with no acute abnormality of the lumbar orsacral spine Electronically authenticated by: NICKI DACOSTA Date: 12/14/2023 13:52 Dictated By: Nicki Dacosta M.D. Signed By:12/14/23 1354 DD/ 1352 TD/TT: Manager Net: Generic External Data Provider [facility] Final Result documented in this encounter Visit Diagnoses Not on filedocumented in this encounter Care Teams Patient Care Nursing Assistant Relationship Specialty Start Date End Date Eliceo Gómez DO [address] [place] [address] PCP - General Family Medicine 04/04/23 Eliceo Gómez DO [address] [place] [address] PCP - [facility] 05/06/2310/05 Beata Hernandez PA [address] [place] [address] Dietitian Nutrition 08/08/23 05/16/24 Juan Damico DO [address] [place] [address] Referring Physician Obstetrics and Gynecology 05/20/24 documented as of this encounter
--- OUTSIDE RECORDS SUMMARY | 2025-04-02 07:41 | XMS_ITS | Encounter Summary ---
Author Organization [facility] Address [address] [place] [address] Care Team Providers Care Oil Treater Name Role Phone Eliceo Gómez DO Primary Care Provider [phone] Eliceo Gómez DO Unavailable [phone] Beata Hernandez Unavailable Juan Damico DO Unavailable [phone] Encounter Details Date Type Department Care Team (Late st Contact Info) Description 12/14/2023 Orders Only [facility] [address] [facility] [address] [place] [address] A, Unknown Practice [address] [place] [phone] Social History Tobacco Use Types Packs/Day Years [...] How often do you attend chur or spiritism services? Never 04/14/2023 Do you belong to any clubs o r organizations such as temple groups, unions, fraternal or athletic groups, or [...] Recorded Patient Health Questionnaire-2 Score 0 10/03/2023 [facility] of Occupat ional Health - Occupational Stress [...] place to sleep or slept in a chcf (including now)? No 10/25/2023 Comments No Sex [...] Description 04/30/2025 4:00 PM EDT Procedure Visit [facility] [address] [place] [phone] Yo Galeas DO [address] [place] [address] 11/20/2025 8:30 AM EST Office Visit [facility] [address] [place] [phone] Nelsy Harris APRN-WOOD TANK BUILDER [address] [place] [address] documented as of this encounter Procedures Procedure Name Priority Date/Time Associated Diagnosis Comments XR LUMBAR SPINE COMPLETE 4+ VIEWS Routine 12/14/2023 2:02 PM EST XR SACRUM AND COCCYX MIN 2 VIEWS Routine 12/14/2023 2:00 PM EST documented in this encounter Results * XR lumbar spine complete 4+ views (12/14/2023 2:02 PM EST) Anatomical Region Laterality Modality Spine, L-spine Radiographic Ira ging us Unknown Practice A IMG XR PROCEDURES Final Resul t * XR SACRUM AND COCCYX MIN 2 VIEWS (12/14/2023 2:00 PM EST) Anatomical Region Laterality Modality Radiographic Ira ging us Unknown Practice A IMG XR PROCEDURES Final Resul t documented in this encounter Visit Diagnoses Not on filedocumented in this encounter Care Teams Oil Treater Relationship Specialty Start Date End Date Eliceo Gómez DO [address] [place] [address] PCP - General Family Medicine 04/04/23 Eliceo Gómez DO [address] [place] [address] PCP - [facility] 05/06/2310/05 Beata Hernandez PA [address] [place] [address] Dietitian Nutrition 08/08/23 05/16/24 Juan Damico DO [address] [place] [address] Referring Physician Obstetrics and Gynecology 05/20/24 documented as of this encounter
--- OUTSIDE RECORDS SUMMARY | 2025-04-02 07:41 | XMS_ITS | Encounter Summary ---
Author Organization [facility] Address [address] [place] [address] Care Team Providers Care Instrumentation And Controls Technician Name Role Phone Eliceo Gómez DO Primary Care Provider [phone] Eliceo Gómez DO Unavailable [phone] Beata Hernandez Unavailable Juan Damico DO Unavailable Encounter Details Date Type Department Care Team (Late st Contact Info) Description 01/11/2024 Abstract [facility] [address] [facility] [address] [place] [phone] Eliceo Gómez, DO [address] [facility] 230 [place] [address] Social History Tobacco Use Types Packs/Day Years [...] How often do you attend chur or congregation services? Never 04/14/2023 Do you belong to any clubs o r organizations such as tenriism groups, unions, fraternal or athletic groups, or [...] Recorded Patient Health Questionnaire-2 Score 0 10/03/2023 [facility] of Occupat ional Health - [...] place to sleep or slept in a half-way (including now)? No 10/25/2023 Comments No Sex [...] 04/30/2025 4:00 PM EDT Procedure Visit [facility] [address] [place] [phone] Yo Galeas DO [address] [place] [address] 11/20/2025 8:30 AM EST Office Visit [facility] [address] [place] [address] Nelsy Harris APRN-CHAIR INSPECTOR [address] [place] [address] documented as of this encounter Visit Diagnoses Not on filedocumented in this encounter Care Teams Instrumentation And Controls Technician Relationship Specialty Start Date End Date Eliceo Gómez, DO [address] [place] [address] PCP - General Family Medicine 04/04/23 Eliceo Gómez DO [address] [place] [address] PCP - [facility] 05/06/2310/05 Beata Hernandez PA [address] [place] [address] Dietitian Nutrition 08/08/23 05/16/24 Juan Damico DO [address] [place] [address] Referring Physician Obstetrics and Gynecology 05/20/24 documented as of this encounter
--- OUTSIDE RECORDS SUMMARY | 2025-04-02 07:41 | XMS_ITS | Encounter Summary ---
Author Organization [facility] Address [address] [facility] [address] Care Team Providers Care Attendant Child Activity Name Role Phone Eliceo Gómez DO Primary Care Provider [phone] Eliceo Gómez DO Unavailable [phone] Juan Damico DO Unavailable [phone] Encounter Details Date Type Department Care Team (Late st Contact Info) Description 09/16/2024 Abstract [facility] [address] [facility] 230 [place] [address] Eliceo Gómez DO [address] [facility] 230 [place] [address] Social History Tobacco Use Types Packs/Day Years [...] How often do you attend chur or episcopal services? Never 05/01/2024 Do you belong to any clubs o r organizations such as druze groups, unions, fraternal or athletic groups, or [...] Recorded Patient Health Questionnaire-2 Score 0 07/11/2024 [facility] of Occupat ionms Health - Occupational Stress Questionnaire Answer Date [...] place to sleep or slept in a long-term (including now)? No 10/25/2023 Housing Stability Vital [...] time in the past 12 m [facility], were you homeless or living in a long-term (including now)? No 05/01/2024 Comments No Sex [...] 4:00 PM EDT Procedure Visit [facility] [address] [place] [phone] Yo Galeas DO [address] Karina [facility] 11/20/2025 8:30 AM EST Office Visit [facility] [address] [place] [phone] Nelsy Harris, SUPERVISOR ROLLING ROOM-AG EQUIPMENT FIELD SERVICE TECHNICIAN [address] [place] [address] documented as of this encounter Visit Diagnoses Not on filedocumented in this encounter Care Teams Attendant Child Activity Relationship Specialty Start Date End Date Eliceo Gómez DO [address] [place] [address] PCP - General Family Medicine 04/04/23 Eliceo Gómez DO [address] [place] [address] PCP - [facility] 05/06/2310/05 Juan Damico DO [address] [place] [address] Referring Physician Obstetrics and Gynecology 05/20/24 documented as of this encounter
--- OUTSIDE RECORDS SUMMARY | 2025-04-02 07:41 | XMS_ITS | Encounter Summary ---
Author Organization [facility] Address [address] [place] [address] Care Team Providers Care Help Desk Associate Name Role Phone Eliceo Gómez DO Primary Care Provider [phone] Eliceo Gómez DO Unavailable [phone] Juan Damico DO Unavailable [phone] Encounter Details Date Type Department Care Team (Late st Contact Info) Description 07/13/2024 Clinisync Result Encounter [facility] External Department Unsolicited [...] How often do you attend chur or confucianist services? Never 05/01/2024 Do you belong to any clubs o r organizations such as restoration groups, unions, fraternal or athletic groups, or [...] Recorded Patient Health Questionnaire-2 Score 0 07/11/2024 [facility] of Occupat ional Health - [...] place to sleep or slept in a fdc (including now)? No 10/25/2023 Housing Stability Vital Sign Answer Melecio e Recorded In the last 12 months, was t here a time when you were not able to pay the mortgage or rent on time? No 05/01/2024 In the past 12 months, how m any times have you moved where you were living? 1 05/01/2024 At any time in the past 12 m [facility], were you homeless or living in a fdc (including now)? No 05/01/2024 Comments No Sex [...] 4:00 PM EDT Procedure Visit [facility] [address] [place] [phone] Yo Galeas DO [address] [place] [address] 11/20/2025 8:30 AM EST Office Visit [facility] [address] [place] [address] Nelsy Harris, DEHAIRING MACHINE TENDER-COUNCILOR [address] [place] [address] documented as of this encounter Procedures Procedure Name Priority Date/Time Associated Diagnosis Comments XR THORACIC SPINE 2 VIEWS 07/13/2024 8:07 AM EDT documented in this encounter Results * XR thoracic spine 2 views (07/13/2024 8:07 AM EDT) Anatomical Region Laterality Modality Spine, T-spine Radiographic Ira ging 07/13/2024 8:07 AM EDT Narrative 07/13/2024 8:09 AM EDT [address] [address] XRay Report Signed Patient: MARY FUENTES MR#: [id number] : 1970 Acct:[id number] Age/Sex: 54 / F ADM Date: 07/12/24 Loc: RAD Attending Dr: Jess Black NP Ordering Physician: Jess Black NP Date of Service: 07/12/24 Procedure(s): XR thoracic spine 2V Accession Number(s): [id number] cc: Jess Black NP; Isatu GÓMEZ [address] [address] Patient Name: MARY FUENTES MRN: [id number] date: 1970 Sex: F Assigned Patient Location: [facility] Current Patient Location: Accession/Order Number: [id number] Exam Date: 07/12/2024 10:50 Report Date: 07/13/2024 08:07 At the request of: JESS BLACK Procedure: XR thoracic spine 2V EXAMINATION: XR thoracic spine 2V HISTORY: Thoracic Pain COMPARISON: No relevant comparison available. FINDINGS: BONES: No significant spondylosis, scoliosis, fracture, or visible bony lesion. DISC SPACES: Intervertebral disc spacer within lower cervical spine, C6-C7 level. Multilevel small anterior degenerative endplate osteophytes of the thoracic spine; no significant thoracic disc space narrowing. PARASPINOUS: Negative. No paraspinous abnormality is seen. OTHER: Negative. XR/XR thoracic spine 2V IMPRESSION: 1. Minimal degenerative changes of the thoracic spine. No specific findings to account for patient's symptoms. Electronically authenticated by: ADAM OLIVEROS Date: 07/13/2024 08:07 Dictated By: Adam Oliveros M.D. Signed By: 07/13/24808 DD/ 6 TD/TT: Sky Line Yarder: Procedure Note Radiology, Radiologist, MD - 07/13/2024 [place] [address] XRay Report Signed Patient: MARY FUENTES DMR#: [id number] : 1970Acct:[id number] Age/Sex: 54 / FADM Date: 07/12/24 Loc: [facility] Attending Dr: Jess Black NP Ordering Physician: Jess Black NP Date of Service: 07/12/24 Procedure(s): XR thoracic spine 2V Accession Number(s): [id number] cc: Jess Black NP; Isatu GÓMEZ [address] [place] [id number] Patient Name: MARY FUENTES MRN: [id number] date: 1970 Sex: F Assigned Patient Location: [facility] Current Patient Location: Accession/Order Number: [id number] Exam Date: 07/12/2024 10:50 Report Date: 07/13/2024 08:07 At the request of: JESS BLACK Procedure: XR thoracic spine 2V EXAMINATION: XR thoracic spine 2V HISTORY: Thoracic Pain COMPARISON: No relevant comparison available. FINDINGS: BONES: No significant spondylosis, scoliosis, fracture, or visible bony lesion. DISC SPACES: Intervertebral disc spacer within lower cervical spine, C6-C7 level. Multilevel small anterior degenerative endplate osteophytes of the thoracic spine; no significant thoracic disc space narrowing. PARASPINOUS: Negative. No paraspinous abnormality is seen. OTHER: Negative. XR/XR thoracic spine 2V IMPRESSION: 1. Minimal degenerative changes of the thoracic spine. No specificfindings to account for patient's symptoms. Electronically authenticated by: ADAM OLIVEROS Date: 07/13/2024 08:07 Dictated By: Adam Oliveros M.D. Signed By:07/13/24808 DD/ 6 TD/TT: Sky Line Yarder: us Generic External Data Provider IMG XR PROCEDURES Final Result documented in this encounter Visit Diagnoses Not on filedocumented in this encounter Care Teams Help Desk Associate Relationship Specialty Start Date End Date Eliceo Gómez DO [address] [place] [address] PCP - General Family Medicine 04/04/23 Eliceo Gómez DO [address] [place] [address] PCP - [facility] 05/06/2310/05 Juan Damico DO [address] [place] [address] Referring Physician Obstetrics and Gynecology 05/20/24 documented as of this encounter
--- OUTSIDE RECORDS SUMMARY | 2025-04-02 07:41 | XMS_ITS | Encounter Summary ---
Author Organization [employer] Address [id number] [address] [place] [address] Care Team Providers Care Sheeting Puller Name Role Phone Dalia Morales DO, George R Primary Care Provider + Encounter Details Date Type Department Care Team (Late st Contact Info) Description 01/04/2021 Orders Only [facility] Pulmonary/Sleep Medicine [address] [facility] [place] [address] Daisy Ley LPN Asthma, unspecified asthma severity, unspecified whether complicated, unspecified whether persistent Social History Tobacco Use Types Packs/Day Years [...] have Coronavirus / COVID-19? No / Unsure 12/23/2020 3:21 PM EST documented as of this encounter Plan of Treatment Not on file documented as of this encounter Procedures Procedure Name Priority Date/Time Associated Diagnosis Comments ALPHA 1 ANTITRYPSIN TARGETIN G GENOTYPING Routine 12/25/2020 Asthma, unspecified asthma severity, unspecified whether complicated, unspecified whether persistent IMMUNOGLOBULINS Routine 12/25/2020 Asthma, unspecified asthma severity, unspecified whether complicated, unspecified whether persistent RESPIRATORY ALLERGY PANEL Routine 12/25/2020 Asthma, unspecified asthma severity, unspecified whether complicated, unspecified whether persistent documented in this encounter Results * (ABNORMAL) Alpha 1 antitrypsin targeting genotyping (12/25/2020) 12/25/2020 Press Play ELECTRIC RANGE ASSEMBLER-[employer] LAB BLOOD ORDERABLES Fi nal Result Performing Organization Address City/[facility] Co de Phone Number QUE[facility] * Immunoglobulins (12/25/2020) 12/25/2020 Press Play ELECTRIC RANGE ASSEMBLER[employer] LAB BLOOD ORDERABLES Fi nal Result Performing Organization Address City/[facility] Co de Phone Number [facility] * Respiratory allergy panel (12/25/2020) Blood Venous blood / Unknown 12/25/2020 Press Play ELECTRIC RANGE ASSEMBLER-CARDING SUPERVISOR LAB BLOOD ORDERABLES Fi nal Result Performing Organization Address City/[facility] Co de Phone Number [facility] documented in this encounter Visit Diagnoses Diagnosis Asthma, unspecified asthma severity, unspecified whether complicated, unspecified whether persistent documented in this encounter Care Teams Sheeting Puller Relationship Specialty Start Date End Date Eliceo Gómez Jr., DO [address] [place] [address], [address] [place] [address] PCP - General Family Medicine 12/11/19 Jenna Butler [address] [phone] (Work) Consulting Physician Behavioral Health 12/20/23 documented as of this encounter
--- OUTSIDE RECORDS SUMMARY | 2025-04-02 07:41 | XMS_ITS | Encounter Summary ---
Author Organization [facility] Address [address] [place] [address] Care Team Providers Care Operations And Maintenance Technician Name Role Phone Eliceo Gmóez DO Primary Care Provider Eliceo Gómez DO Unavailable [phone] Beata Hernandez Unavailable Juan Damico DO Unavailable [phone] Encounter Details Date Type Department Care Team (Late st Contact Info) Description 12/19/2023 Clinisync Result Encounter [facility] External Department Unsolicited [...] often do you attend chur ch or episcopal services? Never 04/14/2023 Do you belong to [...] Recorded Patient Health Questionnaire-2 Score 0 10/03/2023 [facility] - Occupational Stress Questionnaire Answer Date [...] place to sleep or slept in a intermediate (including now)? No 10/25/2023 Comments No Sex [...] Description 04/30/2025 4:00 PM EDT Procedure Visit [facility] [address] [place] [phone] Yo Galeas DO [address] [place] [address] 11/20/2025 8:30 AM EST Office Visit [facility] [address] [place] [phone] Nelsy Harris, PRINCIPAL EXAMINER-ER NURSE [address] [place] [address] documented as of this encounter Procedures Procedure Name Priority Date/Time Associated Diagnosis Comments MR CERVICAL SPINE WO CONTRAST 12/19/2023 7:59 AM EST documented in this encounter Results * MR cervical spine wo contrast (12/19/2023 7:59 AM EST) Anatomical Region Laterality Modality Spine, C-spine Magnetic Resonan ce 12/19/2023 7:59 AM EST Narrative 12/19/2023 8:02 AM EST The [address] [address] Magnetic Resonance Report Signed Patient: MARY FUENTES MR#: [id number] : 1970 Acct:[id number] Age/Sex: 53 / F ADM Date: 12/19/23 Loc: MRI Attending Dr: Ace Ahumada M.D. Ordering Physician: Ace Ahumada M.D. Date of Service: 12/19/23 Procedure(s): MR cervical spine wo con Accession Number(s): [id number] cc: Ace Ahumada M.D.; Isatu GÓMEZ The [place] [id number] Patient Name: MARY FUENTES MRN: [facility]:[id number] date: 1970 Sex: F Assigned Patient Location: MRI Current Patient Location: MRI Accession/Order Number: [id number] Exam Date: 12/19/2023 07:03 Report Date: 12/19/2023 07:59 At the request of: ACE AHUMADA Procedure: MR cervical spine wo con MR cervical spine wo con, 12/19/2023 7:03 AM EST INDICATION: Cervical Stenosis COMPARISON: Prior MRI of the cervical spine dated 08/06/2018 TECHNIQUE: Multiplanar, multisequential MRI images of cervical spine were obtained with without contrast. FINDINGS: The sensitivity of the study has been decreased due to motion artifact as well as magnetic susceptibility artifact at the level of C6-C7. There is status post ACDF at the level of C6-C7. Please note that MRI is not sensitive for evaluation of hardware. There is loss of normal physiologic cervical lordosis. The vertebral heights are relatively preserved. The cervicomedullary junction is unremarkable. No definite signal abnormality within the spinal cord is noted. There are mild disc osteophyte complex associated with uncovertebral joint arthrosis from C3 to T1. No significant neuroforaminal narrowing or canal stenosis at the level of C2-C3 is noted. At the level of C3-C4, there is mild right and moderate left neuroforaminal narrowing and no canal stenosis. At the level of C4-C5, there is moderate bilateral neuroforaminal narrowing and no canal stenosis. At the level of C5-C6, there is moderate bilateral neuroforaminal narrowing and no canal stenosis. At the level of C6-C7, there is moderate right and mild left neuroforaminal narrowing and no canal stenosis. Level of C7-T1 is unremarkable. No definite muscular or ligamentous injury is noted. MR/MR cervical spine wo con IMPRESSION: No significant interval change in mild degenerative changes of the cervical spine. Electronically authenticated by: ANIL PERALTA Date: 12/19/2023 07:59 Dictated By: Anil Peralta M.D. Signed By: 12/19/23 0802 DD/ 0759 TD/TT: It Trainer: Procedure Note Radiology, Radiologist, MD - 12/19/2023 [place] [address] Magnetic Resonance Report Signed Patient: MARY FUENTES DMR#: [id number] : 1970Acct:[id number] Age/Sex: 53 / FADM Date: 12/19/23 Loc: MRI Attending Dr: Ace Ahumada M.D. Ordering Physician: Ace Ahumada M.D. Date of Service: 12/19/23 Procedure(s): MR cervical spine wo con Accession Number(s): [id number] cc: Ace Ahumada M.D.; Isatu GÓMEZ [address] [place] [id number] Patient Name: MARY FUENTES MRN: [id number] date: 1970 Sex: F Assigned Patient Location: MRI Current Patient Location: MRI Accession/Order Number: [id number] Exam Date: 12/19/2023 07:03 Report Date: 12/19/2023 07:59 At the request of: ACE AHUMADA Procedure: MR cervical spine wo con MR cervical spine wo con, 12/19/2023 7:03 AM EST INDICATION: Cervical Stenosis COMPARISON: Prior MRI of the cervical spine dated 08/06/2018 TECHNIQUE: Multiplanar, multisequential MRI images of cervical spine were obtained with without contrast. FINDINGS: The sensitivity of the study has been decreased due to motion artifact aswell as magnetic susceptibility artifact at the level of C6-C7. There is status post ACDF at the level of C6-C7. Please note that MRI is not sensitive for evaluation of hardware. There is loss of normal physiologic cervical lordosis. The vertebralheights are relatively preserved. The cervicomedullary junction is unremarkable. No definite signal abnormality within the spinal cord is noted. There are mild disc osteophyte complex associated with uncovertebral joint arthrosis from C3 to T1. No significant neuroforaminal narrowing or canal stenosis at the level of C2-C3 is noted. At the level of C3-C4, there is mild right and moderate leftneuroforaminal narrowing and no canal stenosis. At the level of C4-C5, there is moderate bilateral neuroforaminalnarrowing and no canal stenosis. At the level of C5-C6, there is moderate bilateral neuroforaminalnarrowing and no canal stenosis. At the level of C6-C7, there is moderate right and mild leftneuroforaminal narrowing and no canal stenosis. Level of C7-T1 is unremarkable. No definite muscular or ligamentous injury is noted. MR/MR cervical spine wo con IMPRESSION: No significant interval change in mild degenerative changes of thecervical spine. Electronically authenticated by: ANIL PERALTA Date: 12/19/2023 07:59 Dictated By: Anil Peralta M.D. Signed By:12/19/23 0802 DD/ 0759 TD/TT: It Trainer: us Generic External Data Provider IMG MRI PROCEDURE S Final Result documented in this encounter Visit Diagnoses Not on filedocumented in this encounter Care Teams Operations And Maintenance Technician Relationship Specialty Start Date End Date Eliceo Gómez DO [address] [place] [phone] PCP - General Family Medicine 5/30/23 Eliceo Gómez DO [address] [place] [address] PCP - [facility] 05/06/2310/05 Beata Hernandez PA [address] [place] [address] Dietitian Nutrition 08/08/23 05/16/24 Juan Damico DO [address] [place] [address] Referring Physician Obstetrics and Gynecology 05/20/24 documented as of this encounter
--- OUTSIDE RECORDS SUMMARY | 2025-04-02 07:41 | XMS_ITS | Encounter Summary ---
Author Organization [facility] Address [address] [place] [address] Care Team Providers Care Administrative Dietitian Name Role Phone Shannon Gómez DO Primary Care Provider [phone] Reason for Visit * Reason Comments Medication Refill Encounter Details Date Type Department Care Team (Late st Contact Info) Description 02/16/2025 Refill Gastroenterology and Hepatology [facility] [address] [place] [address] [place] [address] Padmaja Ledezma MD, PhD [address] [facility] [address] [place] [phone] Chronic diarrhea Social History Tobacco Use Types Packs/Day Years [...] encounter Miscellaneous Notes * Telephone Encounter - Adriana Peace MA - 02/17/2025 8:34 AM EDT MEREDITH on 11/04/[address] PLANS/RECOMMENDATIONS: GHN Recommendations: Diet: Gastroparesis Diet: -Small, frequent meals and snacks (ideally 5-6 per day). Avoid large meals. -Control amount of dietary fat at each meal & snack; avoid fried/greasy foods and high fat meats. -Control amount of dietary fiber at each meal & snack; avoid raw veggies and skins/peels, look for <3 grams of fiber per serving of food when reading food labels and keep serving of cooked veggies to 1/2 cup at one sitting. -Chew foods well and take your time to eat. -Focus on mostly liquids when most symptomatic (remember that fat and fiber in liquid form are often best tolerated). -Liquids are often best tolerated away from meals. -Do not lay down or go to bed right after eating - wait at least 2-3 hours after eating dinner before going to bed. 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 Encouraged her to continue walking daily; may benefit more if done around meal time. Nutrition Education: Educated pt on diet, lifestyle, and daily routine in the setting of gastroparesis and ED. Praised her for the progress she has made so far - encouraged her to continue to work onmeal consistency and adequacy. Pt aware that we'll keep our follow-up as needed as she continue to follow regularly with [facility] ED RDN. Continue Patient Goals d/w ED RDN 10/28/24: Add 1 shake per day - 1/2 in the morning, 1/2 around noon. Continue dinner as is Recommend listening to or reading Intuitive Eating book by Negrita Squires and Asha Conway. Also check out podcast 10 Percent Happier with Jez Cutler - The Anti-Diet with Negrita Squires Handouts Provided: Last labs: 12/20/2023 NOV- no appt REFILLS REQUESTED: Requested Prescriptions Pending Prescriptions Disp Refills colestipol 1 g tablet [Pharmacy Med Name: COLESTIPOL HCL 1 GM TABLET] 180 tablet 1 Sig: TAKE 1 TABLET BY MOUTH TWICE A DAY documented in this encounter Plan of Treatment Not on file documented as of this encounter Visit Diagnoses Diagnosis Chronic diarrhea Diarrhea documented in this encounter Care Teams Administrative Dietitian Relationship Specialty Start Date End Date Shannon Gómez DO [address] [place] [phone] PCP - General Family Medicine 11/14/23 documented as of this encounter
--- OUTSIDE RECORDS SUMMARY | 2025-04-02 07:42 | XMS_ITS | Encounter Summary ---
Author Organization [facility] Address [address] [place] [address] Care Team Providers Care Press Technician Name Role Phone Eliceo Gómez DO Primary Care Provider [phone] Eliceo Gómez DO Unavailable [phone] Beata Hernandez Unavailable Juan Damico DO Unavailable [phone] Encounter Details Date Type Department Care Team (Late st Contact Info) Description 11/13/2023 Orders Only [facility] [address] [place] [phone] A, Unknown Practice [address] [place] [address] Social History Tobacco Use Types Packs/Day Years [...] How often do you attend chur or shinto services? Never 04/14/2023 Do you belong to any clubs o r organizations such as zoroastrian groups, unions, fraternal or athletic groups, or [...] Recorded Patient Health Questionnaire-2 Score 0 10/03/2023 [facility] - Occupational [...] place to sleep or slept in a alf (including now)? No 10/25/2023 Comments No Sex [...] Description 04/30/2025 4:00 PM EDT Procedure Visit [facility] [address] [place] [phone] Yo Galeas DO [address] [place] [phone] 11/20/2025 8:30 AM EST Office Visit [facility] [address] [place] [phone] Nelsy Harris APRN-SHEATHER [address] [place] [address] documented as of this encounter Procedures Procedure Name Priority Date/Time Associated Diagnosis Comments XR FOOT 3+ VIEWS RIGHT Routine 11/13/2023 1:56 PM EST documented in this encounter Results * XR FOOT 3+ VIEWS RIGHT (11/13/2023 1:56 PM EST) Anatomical Region Laterality Modality Radiographic Ira ging us Unknown Practice A IMG XR PROCEDURES Final Resul t documented in this encounter Visit Diagnoses Not on filedocumented in this encounter Care Teams Press Technician Relationship Specialty Start Date End Date Eliceo Gómez DO [address] [place] [address] PCP - General Family Medicine 04/04/23 Eliceo Gómez DO [address] [place] [address] PCP - [facility] 05/06/2310/05 Beata Hernandez PA [address] [place] [address] Dietitian Nutrition 08/08/23 05/16/24 Juan Damico DO [address] [place] [address] Referring Physician Obstetrics and Gynecology 05/20/24 documented as of this encounter
--- OUTSIDE RECORDS SUMMARY | 2025-04-02 07:42 | XMS_ITS | Encounter Summary ---
Author Organization [facility] Address [address] [place] [address] Care Team Providers Care Lactation Consultant Name Role Phone Eliceo Gómez DO Primary Care Provider [phone] Eliceo Gómez DO Unavailable [phone] Beata Hernandez Unavailable Juan Damico DO Unavailable [phone] Encounter Details Date Type Department Care Team (Late st Contact Info) Description 07/11/2023 Abstract [facility] [address] [facility] [address] [place] [phone] Eliceo Gómez, DO [address] [facility] [address] [place] [address] Social History Tobacco Use Types Packs/Day Years Used Date Smoking Tobacco: Never Smokeless Tobacco: Never Alcohol Use Standard Drinks/Week Comments Never 0 (1 standard drink = 0.6 oz pur e alcohol) Humiliation, Afraid, Rape, and Kick questionnair e [...] How often do you attend chur or jehovah's witness services? Never 04/14/2023 Do you belong to any clubs o r organizations such as gnosticist groups, unions, fraternal or athletic groups, or [...] Date Recorded Patient Health Questionnaire-2 Score 0 07/06/2023 [facility] - Occupational Stress Questionnaire Answer [...] the mortgage or rent on time? No 04/14/2023 [address] of [address] Lived in the Last Year Not on f ile 04/14/2023 In the last 12 months, was t here a time when you did not have a steady place to sleep or slept in a long term (including now)? No 04/14/2023 Comments No Sex and Gender Information Value Date Recorded Sex Assigned at Female 03/13/2023 7:50 AM EDT Legal Sex Female 7:14 PM EDT Gender Identity Female 01/18/2023 7:14 PM EDT Sexual Orientation Not on file COVID-19 Exposure Response Date Recorded In the last 10 days, have yo u been in contact with someone who was confirmed or suspected to have Coronavirus/COVID-19? No / Unsure 07/04/2023 2:32 PM EDT documented as of this encounter Plan of Treatment Upcoming Encounters Date Type Department Care Team (Late st Contact Info) Description 04/30/2025 4:00 PM EDT Procedure Visit [facility] [place] [address] [place] [phone] Yo Galeas DO [address] [place] [address] 11/20/2025 8:30 AM EST Office Visit [facility] [address] [place] [phone] Nelsy Harris APRN-SLOT HOST [address] [place] [address] documented as of this encounter Visit Diagnoses Not on filedocumented in this encounter Care Teams Lactation Consultant Relationship Specialty Start Date End Date Eliceo Gómez DO [address] [place] [address] PCP - General Family Medicine 04/04/23 Eliceo Gómez DO [address] [place] [address] PCP - [facility] 05/06/2310/05 Beata Hernandez PA [address] [place] [address] Dietitian Nutrition 08/08/23 05/16/24 Juan Damico DO [address] [place] [address] Referring Physician Obstetrics and Gynecology 05/20/24 documented as of this encounter
--- OUTSIDE RECORDS SUMMARY | 2025-04-02 07:42 | XMS_ITS | Encounter Summary ---
Author Organization [facility] Address [address] [place] [address] Care Team Providers Care Study Abroad Coordinator Name Role Phone Eliceo Gómez DO Primary Care Provider [phone] Eliceo Gómez DO Unavailable [phone] Beata Hernandez Unavailable Juan Damico DO Unavailable [phone] Encounter Details Date Type Department Care Team (Late st Contact Info) Description 07/28/2023 Orders Only [facility] [address] [facility] [address] [place] [phone] A, Unknown Practice [address] [place] [address] Social History Tobacco Use Types Packs/Day Years [...] How often do you attend chur or hindu services? Never 04/14/2023 Do you belong to any clubs o r organizations such as yazidi groups, unions, fraternal or athletic groups, or [...] Recorded Patient Health Questionnaire-2 Score 0 07/06/2023 [facility] - Occupational Stress Questionnaire Answer Date [...] place to sleep or slept in a jail (including now)? No 04/14/2023 Comments No Sex [...] 4:00 PM EDT Procedure Visit [facility] [address] [place] [phone] Yo Galeas DO [address] [place] [address] 11/20/2025 8:30 AM EST Office Visit [facility] [address] [place] [address] Nelsy Harris APRN-REIMBURSEMENT LIAISON [address] [place] [address] documented as of this encounter Procedures Procedure Name Priority Date/Time Associated Diagnosis Comments XR FOOT 3+ VIEWS RIGHT Routine 07/28/2023 9:05 AM EDT documented in this encounter Results * XR FOOT 3+ VIEWS RIGHT (07/28/2023 9:05 AM EDT) Anatomical Region Laterality Modality Radiographic Ira ging us Unknown Practice A IMG XR PROCEDURES Final Resul t documented in this encounter Visit Diagnoses Not on filedocumented in this encounter Care Teams Study Abroad Coordinator Relationship Specialty Start Date End Date Eliceo Gómez DO [address] [place] [address] PCP - General Family Medicine 04/04/23 Eliceo Gómez DO [address] [place] [address] PCP - [facility] 05/06/2310/05 Beata Hernandez PA [address] [place] [address] Dietitian Nutrition 08/08/23 05/16/24 Juan Damico DO [address] [place] [address] Referring Physician Obstetrics and Gynecology 05/20/24 documented as of this encounter
--- OUTSIDE RECORDS SUMMARY | 2025-04-02 07:42 | XMS_ITS | Encounter Summary ---
Author Organization [facility] Address [address] [place] [address] Care Team Providers Care Behavioral Health Therapist Name Role Phone Eliceo Gómez DO Primary Care Provider [phone] Eliceo Gómez DO Unavailable [phone] Beata Hernandez Unavailable Juan Damico DO Unavailable Encounter Details Date Type Department Care Team (Late st Contact Info) Description 08/03/2023 Clinisync Result Encounter [facility] External Department Unsolicited [...] often do you attend chur ch or gnosticism services? Never 04/14/2023 Do you belong to any clubs o r organizations such as worship groups, unions, fraternal or athletic groups, or [...] Recorded Patient Health Questionnaire-2 Score 0 07/06/2023 [facility] - Occupational Stress Questionnaire Answer [...] Description 04/30/2025 4:00 PM EDT Procedure Visit [facility] [address] [place] [phone] Yo Galeas DO [address] [place] [id number] 11/20/2025 8:30 AM EST Office Visit [facility] [address] [place] [address] Nelsy Harris APRN-ENVIRONMENTAL CONSTRUCTION ENGINEER [address] [place] [address] documented as of this encounter Procedures Procedure Name Priority Date/Time Associated Diagnosis Comments XR FOOT RT MIN 3V 08/03/2023 2:3 8 PM EDT documented in this encounter Results * XR FOOT RT MIN 3V (08/03/2023 2:38 PM EDT) Anatomical Region Laterality Modality Other 08/03/2023 2:38 PM EDT Narrative 08/03/2023 2:38 [place] [address] XRay Report Signed Patient: MARY FUENTES MR#: [id number] : 1970 Acct:[id number] Age/Sex: 53 / F ADM Date: Loc: RAD Attending Dr: Sade Felix D.P.M. Ordering Physician: Sade Felix M.D. Date of Service: 08/03/23 Procedure(s): XR foot RT min 3V Accession Number(s): [id number] cc: Sade Felix M.D.; Isatu GÓMEZ [place] [address] Patient Name: MARY FUENTES MRN: [id number] date: 1970 Sex: F Assigned Patient Location: [facility] Current Patient Location: [facility] Accession/Order Number: [id number] Exam Date: 08/03/2023 13:35 Report Date: 08/03/2023 14:38 At the request of: SADE FELIX Procedure: XR foot RT min 3V STUDY: XR foot RT min 3V, [id number] HISTORY: RIGHT FOOT PAIN COMPARISON: Right foot x-rays 07/28/2023. FINDINGS: No acute fracture, dislocation, or suspicious osseous lesion. Right foot hardware is intact and similar alignment compared with 07/28/2023. No new or worsening osseous abnormality. Mild osteoarthritis at the first metatarsophalangeal joint as well as at the first and fourth tarsometatarsal joint. Small soft tissue calcification near the navicular which may represent a small accessory navicular. Small soft tissue calcification along the dorsal aspect of the navicular, similar. Small plantar calcaneal spur and mild Achilles insertional enthesopathy. XR/XR foot RT min 3V IMPRESSION: Compared with 07/28/2023, no new or worsening osseous abnormality demonstrated. Electronically authenticated by: MELL YANG Date: 08/03/2023 14:38 Dictated By: Mell Yang Signed By: 08/03/23 1441 DD/ 1438 TD/TT: Marine Structural Welder: Procedure Note Radiology, Radiologist, MD - 08/03/2023 [place] [address] XRay Report Signed Patient: MARY FUENTES DMR#: [id number] : 1970Acct:[id number] Age/Sex: 53 / FADM Date: Loc: RAD Attending Dr: Sade Felix D.P.M. Ordering Physician: Sade Felix M.D. Date of Service: 08/03/23 Procedure(s): XR foot RT min 3V Accession Number(s): [id number] cc: Sade Felix M.D.; Isatu GÓMEZ [place] [address] Patient Name: MARY FUENTES MRN: [id number] date: 1970 Sex: F Assigned Patient Location: [facility] Current Patient Location: [facility] Accession/Order Number: [id number] Exam Date: 08/03/2023 13:35 Report Date: 08/03/2023 14:38 At the request of: SADE FELIX Procedure: XR foot RT min 3V STUDY: XR foot RT min 3V, [id number] HISTORY: RIGHT FOOT PAIN COMPARISON: Right foot x-rays 07/28/2023. FINDINGS: No acute fracture, dislocation, or suspicious osseous lesion. Right foot hardware is intact and similar alignment compared with07/28/2023. No new or worsening osseous abnormality. Mild osteoarthritis at the first metatarsophalangeal joint as well as atthe first and fourth tarsometatarsal joint. Small soft tissue calcification near the navicular which may represent asmall accessory navicular. Small soft tissue calcification along the dorsal aspect of the navicular, similar. Small plantar calcaneal spur and mild Achilles insertional enthesopathy. XR/XR foot RT min 3V IMPRESSION: Compared with 07/28/2023, no new or worsening osseous abnormalitydemonstrated. Electronically authenticated by: MELL YANG Date: 08/03/2023 14:38 Dictated By: Mell Yang Signed By:08/03/23 1441 DD/ 1438 TD/TT: Marine Structural Welder: us Generic External Data Provider [facility] Final Result documented in this encounter Visit Diagnoses Not on filedocumented in this encounter Care Teams Behavioral Health Therapist Relationship Specialty Start Date End Date Eliceo Gómez DO [address] [place] [address] PCP - General Family Medicine 04/04/23 Eliceo Gómez DO [address] [place] [address] PCP - [facility] 05/06/2310/05 Beata Hernandez PA [address] [place] [address] Dietitian Nutrition 08/08/23 05/16/24 Juan Damico DO [address] [place] [address] Referring Physician Obstetrics and Gynecology 05/20/24 documented as of this encounter
--- OUTSIDE RECORDS SUMMARY | 2025-04-02 07:42 | XMS_ITS | Encounter Summary ---
Author Organization [facility] Address [address] [facility] [place] [address] Care Team Providers Care Rn Night Name Role Phone Eliceo Gómez DO Primary Care Provider [phone] Eliceo Gómez DO Unavailable [phone] Juan Damico DO Unavailable [phone] Encounter Details Date Type Department Care Team (Late st Contact Info) Description 10/14/2024 Abstract [facility] [address] [facility] [address] [place] [address] Eliceo Gómez DO [address] [facility] [address] [place] [address] Social History Tobacco Use Types Packs/Day Years [...] How often do you attend chur or roman catholic services? Never 05/01/2024 Do you belong to any clubs o r organizations such as synagogue groups, unions, fraternal or athletic groups, or [...] Recorded Patient Health Questionnaire-2 Score 0 07/11/2024 [facility] - Occupational Stress Questionnaire Answer Date [...] place to sleep or slept in a mcfp (including now)? No 10/25/2023 Housing Stability Vital Sign Answer Melecio e Recorded In the last 12 months, was t here a time when you were not able to pay the mortgage or rent on time? No 05/01/2024 In the past 12 months, how m any times have you moved where you were living? 1 05/01/2024 At any time in the past 12 m [facility], were you homeless or living in a mcfp (including now)? No 05/01/2024 Comments No Sex [...] 4:00 PM EDT Procedure Visit [facility] [address] [place] [address] Yo Galeas DO [address] [place] [facility] 11/20/2025 8:30 AM EST Office Visit [facility] [address] [place] [phone] Nelsy Harris, DEPUTY CHIEF COUNSEL-BOOT MAKER [address] [place] [address] documented as of this encounter Visit Diagnoses Not on filedocumented in this encounter Care Teams Rn Night Relationship Specialty Start Date End Date Eliceo Gómez DO [address] [place] [address] PCP - General Family Medicine 04/04/23 Eliceo Gómez DO [address] [place] [address] PCP - [facility] 05/06/2310/05 Juan Damico DO [address] [place] [address] Referring Physician Obstetrics and Gynecology 05/20/24 documented as of this encounter
--- OUTSIDE RECORDS SUMMARY | 2025-04-02 07:42 | XMS_ITS | Encounter Summary ---
Author Organization [facility] Address [address] [place] [address] Care Team Providers Care Pharmacy Scheduler Name Role Phone HernandezEliceo randolph Asiya DO Primary Care Provider [phone] Eliceo Gómez DO Unavailable [phone] Beata Hernandez Unavailable Juan Damico DO Unavailable [phone] Encounter Details Date Type Department Care Team (Late st Contact Info) Description 10/25/2023 Orders Only [facility] [address] [place] [address] Jacob Felix MD [address] [place] [address] [place] [address] Social History Tobacco Use Types Packs/Day Years [...] How often do you attend chur or latter-day services? Never 04/14/2023 Do you belong to any clubs o r organizations such as shinto groups, unions, fraternal or athletic groups, or [...] Patient Health Questionnaire-2 Score 0 10/03/2023 [facility]at ional Health - [...] a senior care (including now)? No 10/25/2023 Comments No Sex [...] suspected to have Coronavirus/COVID-19? No / Unsure 10/02/2023 1:05 PM EST documented as of this encounter Plan of Treatment Upcoming Encounters Date Type Department Care Team (Late st Contact Info) Description 04/30/2025 4:00 PM EDT Procedure Visit [facility] [address] [place] [address] Yo Galeas DO [address] [place] [address] 11/20/2025 8:30 AM EST Office Visit [facility] [address] [place] [address] Felter, Nelsy A, VINEGAR MAKER-DIRECTOR WORK [address] [place] [address] documented as of this encounter Procedures Procedure Name Priority Date/Time Associated Diagnosis Comments XR FOOT 3+ VIEWS RIGHT Routine 10/25/2023 1:41 PM EST documented in this encounter Results * XR foot 3+ views right (10/25/2023 1:41 PM EST) Anatomical Region Laterality Modality Lower Extremities, Foot Right Radiogra phic Imaging us Jacob Felix MD IMG XR PROCEDURES Final Re sult documented in this encounter Visit Diagnoses Not on filedocumented in this encounter Care Teams Pharmacy Scheduler Relationship Specialty Start Date End Date Eliceo Gómez DO [address] [place] [address] PCP - General Family Medicine 04/04/23 Eliceo Gómez DO [address] [place] [address] PCP - [facility] 05/06/2310/05 Beata Hernandez PA [address] [place] [address] Dietitian Nutrition 08/08/23 05/16/24 Juan Damico DO [address] [place] [address] Referring Physician Obstetrics and Gynecology 05/20/24 documented as of this encounter
--- OUTSIDE RECORDS SUMMARY | 2025-04-02 07:42 | XMS_ITS | Encounter Summary ---
Author Organization [employer] Address [id number] [address] [place] [address] Care Team Providers Care Tape Recorder Repairer Name Role Phone Dalia Morales DO, George R Primary Care Provider + Encounter Details Date Type Department Care Team (Late st Contact Info) Description 02/12/2021 Orders Only [facility] [address] [place] [phone] External, Scanning Provider Social History Tobacco Use Types Packs/Day Years [...] have Coronavirus / COVID-19? No / Unsure 02/12/2021 5:19 PM EDT documented as of this encounter Plan of Treatment Not on file documented as of this encounter Procedures Procedure Name Priority Date/Time Associated Diagnosis Comments MULTIPLE LABS Routine 01/21/2021 documented in this encounter Results * Multiple labs (01/21/2021) us Scanning Provider External [facility] Final Result MANUALLY TRANSCRIBED RESULTS documented in this encounter Visit Diagnoses Not on filedocumented in this encounter Care Teams Tape Recorder Repairer Relationship Specialty Start Date End Date Eliceo Gómez Jr., [address] [place] [address], [address], [place] [address] PCP - General Family Medicine 12/11/19 Jenna Butler [address] Consulting Physician Behavioral Health 12/20/23 documented as of this encounter
--- OUTSIDE RECORDS SUMMARY | 2025-04-02 07:42 | XMS_ITS | Encounter Summary ---
Author Organization [facility] Address [address] [place] [address] Care Team Providers Care Hat Block Maker Name Role Phone Eliceo Gómez DO Primary Care Provider [phone] Eliceo Gómez DO Unavailable [phone] Beata Hernandez Unavailable Juan Damico DO Unavailable [phone] Encounter Details Date Type Department Care Team (Late st Contact Info) Description 08/05/2023 Clinisync Result Encounter [facility] External Department Unsolicited [...] often do you attend chur ch or cheondoism services? Never 04/14/2023 Do you belong to any clubs o r organizations such as protestant groups, unions, fraternal or athletic groups, or [...] Recorded Patient Health Questionnaire-2 Score 0 07/06/2023 [facility] - Occupational Stress Questionnaire Answer Date [...] in a skilled nursing (including now)? No 04/14/2023 Comments No Sex [...] 04/30/2025 4:00 PM EDT Procedure Visit [facility] [place] [place] [address] [place] [address] Yo Galeas DO [address] [place] [id number] 11/20/2025 8:30 AM EST Office Visit [facility] [address] [place] [address] Nelsy Harris APRN-SALES AUDIT CLERK [address] [place] [address] documented as of this encounter Procedures Procedure Name Priority Date/Time Associated Diagnosis Comments CT ANKLE RT WO CON 08/05/2023 8: 01 PM EDT documented in this encounter Results * CT ANKLE RT WO CON (08/05/2023 8:01 PM EDT) Anatomical Region Laterality Modality Other 08/05/2023 8:01 PM EDT Narrative 08/05/2023 8:01 PM EDT [address] [address] [address] Scan Report Signed Patient: MARY FUENTES MR#: [id number] : 1970 Acct:[id number] Age/Sex: 53 / F ADM Date: 08/04/23 Loc: CT Attending Dr: Niecy Serna Ordering Physician: Niecy Serna Date of Service: 08/04/23 Procedure(s): CT ankle RT wo con Accession Number(s): [id number] cc: Isatu GÓMEZ [place] [id number] Patient Name: MARY FUENTES MRN: [id number] date: 1970 Sex: F Assigned Patient Location: CT Current Patient Location: Accession/Order Number: [id number] Exam Date: 08/04/2023 12:43 Report Date: 08/05/2023 20:01 At the request of: NIECY SERNA Procedure: CT ankle RT wo con EXAM: CT ankle RT wo con, [id number] 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 Multiplanar reformats were generated at the scanner. Dose reduction technique used: Automated exposure control and/or adjustment of the mA and/or kV according to patient size and/or use of iterative reconstruction technique. COMPARISON: Right ankle CT 04/14/2023 and right foot x-rays 08/03/2023. FINDINGS: Interval removal of the 2 calcaneal osteotomy fixation screws with subsequent calcaneotalar and talonavicular arthrodesis. The arthrodesis hardware is intact. The tip of the most cranial of the two talocalcaneal arthrodesis screws extends beyond the cortex of the talus by approximately 6 mm into the soft tissues of the sinus tarsi (for example series 7 image 66 and series 3 image 97). The head of the most lateral talonavicular arthrodesis screw sits proud of the cortex of the navicular by approximately 2.5 mm into the superomedial aspect of the articulation between the navicular and medial cuneiform. No significant bony bridging across the talocalcaneal articulation. There is partial bony bridging across the talonavicular joint. Complete bony bridging across the lateral aspect of the calcaneocuboid arthrodesis of the medial aspect of the joint remains patent. Curvilinear calcification within the soft tissues of the anteromedial ankle measuring approximately 10 mm in length (series 7 image 36 and series 3 image 91), new compared with 04/14/2023. 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 No subcortical cystic change in the talar dome. No other significant osteoarthritis of the unfused joints. Chronic inflammatory changes and mild edema surrounding the ankle. No large fluid collection. CT/CT ankle RT wo con IMPRESSION: 1. The most cranial of the 2 talocalcaneal arthrodesis screws extends beyond the cortex of the talus into the sinus tarsi by approximately 6 mm. 2. The head of the most lateral talonavicular arthrodesis screw sits proud of the cortex of the navicular by approximately 2.5 cm and is directly adjacent to the superomedial aspect of the articulation between the navicular and medial cuneiform. 3. Compared with 04/14/2023, there are 2 new small bony fragments within the soft tissues surrounding the ankle. Electronically authenticated by: MELL YANG Date: 08/05/2023 20:01 Dictated By: Mell Yang Signed By: 08/05/232003 DD/ 00 TD/TT: Heat Treat Supervisor: Procedure Note Radiology, Radiologist, MD - 08/05/2023 [place] [address] CT Scan Report Signed Patient: MARY FUENTES [facility]#: [id number] : 1970Acct:[id number] Age/Sex: 53 / FADM Date: 08/04/23 Loc: CT Attending Dr: Niecy Serna Ordering Physician: Niecy Serna Date of Service: 08/04/23 Procedure(s): CT ankle RT wo con Accession Number(s): [id number] cc: Isatu GÓMEZ [place] [id number] Patient Name: MARY FUENTES MRN: [id number] date: 1970 Sex: F Assigned Patient Location: CT Current Patient Location: Accession/Order Number: [id number] Exam Date: 08/04/2023 12:43 Report Date: 08/05/2023 20:01 At the request of: NIECY SERNA Procedure: CT ankle RT wo con EXAM: CT ankle RT wo con, [id number] 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 Multiplanar reformats were generated at the scanner. Dose reductiontechnique used: Automated exposure control and/or adjustment of the mA and/or kV according to patient size and/or use of iterative reconstructiontechnique. COMPARISON: Right ankle CT 04/14/2023 and right foot x-rays 08/03/2023. FINDINGS: Interval removal of the 2 calcaneal osteotomy fixation screws withsubsequent calcaneotalar and talonavicular arthrodesis. The arthrodesis hardware is intact. The tip of the most cranial of the two talocalcaneal arthrodesis screws extends beyond the cortex of the talus by approximately 6 mm into the soft tissues of the sinus tarsi (for example series 7 image 66 and series 3image 97). The head of the most lateral talonavicular arthrodesis screw sits proud ofthe cortex of the navicular by approximately 2.5 mm into the superomedialaspect of the articulation between the navicular and medial cuneiform. No significant bony bridging across the talocalcaneal articulation. Thereis partial bony bridging across the talonavicular joint. Complete bonybridging across the lateral aspect of the calcaneocuboid arthrodesis of the medial aspect of the joint remains patent. Curvilinear calcification within the soft tissues of the anteromedialankle measuring approximately 10 mm in length (series 7 image 36 and series 3image 91), new compared with 04/14/2023. Additional osseous fragment along the posterior lateral aspect of the ankle measuring 9 mm in length (series 9image 136 and series 7 image 73), also new Mild osteoarthritis at the ankle mortise, similar. No subcortical cystic change in the talar dome. No other significant osteoarthritis of the unfusedjoints. Chronic inflammatory changes and mild edema surrounding the ankle. Nolarge fluid collection. CT/CT ankle RT wo con IMPRESSION: 1. The most cranial of the 2 talocalcaneal arthrodesis screws extendsbeyond the cortex of the talus into the sinus tarsi by approximately 6 mm. 2. The head of the most lateral talonavicular arthrodesis screw sits proudof the cortex of the navicular by approximately 2.5 cm and is directlyadjacent to the superomedial aspect of the articulation between the navicular andmedial cuneiform. 3. Compared with 04/14/2023, there are 2 new small bony fragments within the soft tissues surrounding the ankle. Electronically authenticated by: MELL YANG Date: 08/05/2023 20:01 Dictated By: Mell Yang Signed By:08/05/232003 DD/ 00 TD/TT: Heat Treat Supervisor: us Generic External Data Provider [facility] Final Result documented in this encounter Visit Diagnoses Not on filedocumented in this encounter Care Teams Hat Block Maker Relationship Specialty Start Date End Date Eliceo Gómez DO [address] [place] [address] PCP - General Family Medicine 04/04/23 Eliceo Gómez DO [address] [place] [address] PCP - [facility] 05/06/2310/05 Beata Hernandez PA [address] [place] [address] Dietitian Nutrition 08/08/23 05/16/24 Juan Damico DO [address] [place] [address] Referring Physician Obstetrics and Gynecology 05/20/24 documented as of this encounter
--- OUTSIDE RECORDS SUMMARY | 2025-04-02 07:42 | XMS_ITS | Encounter Summary ---
Author Organization [facility] Address [address] [place] [address] Care Team Providers Care Setter Out Name Role Phone Eliceo Gómez DO Primary Care Provider [phone] Eliceo Gómez DO Unavailable [phone] Beata Hernandez Unavailable Juan Damico DO Unavailable [phone] Encounter Details Date Type Department Care Team (Late st Contact Info) Description 06/21/2023 Abstract [facility] [address] [facility] [address] [place] [phone] Eliceo Gómez, DO [address] [facility] [address] [place] [address] Social History Tobacco Use Types Packs/Day Years [...] How often do you attend chur or faith services? Never 04/14/2023 Do you belong to any clubs o r organizations such as buddhism groups, unions, fraternal or athletic groups, or [...] Date Recorded Patient Health Questionnaire-2 Score 0 06/08/2023 [facility] - Occupational Stress Questionnaire Answer [...] slept in a mcfp (including now)? No 04/14/2023 Comments No Sex [...] suspected to have Coronavirus/COVID-19? No / Unsure 06/19/2023 8:26 AM EDT documented as of this encounter Plan of Treatment Upcoming Encounters Date Type Department Care Team (Late st Contact Info) Description 04/30/2025 4:00 PM EDT Procedure Visit [facility] [place] [address] [place] [phone] Yo Galeas DO [address] [place] [address] 11/20/2025 8:30 AM EST Office Visit [facility] [address] [place] [address] Nelsy Harris APRN-SHEET FINISHER [address] [place] [address] documented as of this encounter Visit Diagnoses Not on filedocumented in this encounter Care Teams Setter Out Relationship Specialty Start Date End Date Eliceo Gómez DO [address] [place] [address] PCP - General Family Medicine 04/04/23 Eliceo Gómez DO [address] [place] [address] PCP - [facility] 05/06/2310/05 Beata Hernandez PA [address] [place] [address] Dietitian Nutrition 08/08/23 05/16/24 Juan Damico DO [address] [place] [address] Referring Physician Obstetrics and Gynecology 05/20/24 documented as of this encounter
--- OUTSIDE RECORDS SUMMARY | 2025-04-02 07:42 | XMS_ITS | Encounter Summary ---
Author Organization [facility] Address [address] [facility] [place] [address] Care Team Providers Care Storage And Backup Administrator Name Role Phone Eliceo Gómez DO Primary Care Provider [phone] Eliceo Gómez DO Unavailable [phone] Juan Damico DO Unavailable [phone] Encounter Details Date Type Department Care Team (Late st Contact Info) Description 03/17/2025 Abstract [facility] [address] [facility] 230 [place] [address] Eliceo Gómez DO [address] [facility] 230 [place] [address] Social History Tobacco Use Types Packs/Day Years [...] How often do you attend chur or mosque services? Never 05/01/2024 Do you belong to [...] Date Recorded Patient Health Questionnaire-2 Score 0 01/20/2025 [facility] - Occupational Stress Questionnaire Answer Date [...] slept in a jail (including now)? No 10/25/2023 Housing Stability Vital Sign Answer Melecio e Recorded In the last 12 months, was t here a time when you were not able to pay the mortgage or rent on time? No 05/01/2024 In the past 12 months, how m any times have you moved where you were living? 1 05/01/2024 At any time in the past 12 m [facility], were you homeless or living in a jail (including now)? No 05/01/2024 Comments No Sex [...] Procedure Visit [facility] [address] [place] [phone] Yo Galeas DO [address] [place] [address] 11/20/2025 8:30 AM EST Office Visit [facility] [address] [place] [address] Nelsy Harris, BUCKRAM SEWER-GEAR CUTTER [address] [place] [address] documented as of this encounter Visit Diagnoses Not on filedocumented in this encounter Additional Health Concerns Assessment Noted Time PHQ-9 Depression Total Score: 0 01/21/20 25 1:00 PM EDT documented as of this encounter Care Teams Storage And Backup Administrator Relationship Specialty Start Date End Date Eliceo Gómez DO [address] [place] [address] PCP - General Family Medicine 04/04/23 Eliceo Gómez DO [address] [place] [address] PCP - [facility] 05/06/2310/05 Juan Damico DO [address] [place] [address] Referring Physician Obstetrics and Gynecology 05/20/24 documented as of this encounter
--- OUTSIDE RECORDS SUMMARY | 2025-04-02 07:42 | XMS_ITS | Encounter Summary ---
Author Organization [facility] Address [address] [place] [address] Care Team Providers Care Supervisor Dry Cleaning Name Role Phone Eliceo Gómez DO Primary Care Provider [phone] Eliceo Gómez DO Unavailable [phone] Beata Hernandez Unavailable Juan Damico DO Unavailable [phone] Encounter Details Date Type Department Care Team (Late st Contact Info) Description 10/25/2023 Clinisync Result Encounter [facility] External Department Unsolicited [...] often do you attend chur ch or rastafari services? Never 04/14/2023 Do you belong to any clubs o r organizations such as roman catholic groups, unions, fraternal or athletic groups, [...] Recorded Patient Health Questionnaire-2 Score 0 10/03/2023 [facility] - [facility]ational [facility] Questionnaire Answer Date [...] in a long-term (including now)? No 10/25/2023 Comments No Sex [...] 04/30/2025 4:00 PM EDT Procedure Visit [facility] [address] [place] [phone] Yo Galeas DO [address] [place] [address] 11/20/2025 8:30 AM EST Office Visit [facility] [address] [place] [phone] Nelsy Harris APRN-AIRLINE TICKET AGENT [address] [place] [address] documented as of this encounter Procedures Procedure Name Priority Date/Time Associated Diagnosis Comments XR FOOT RT MIN 3V 10/25/2023 1:2 9 PM EST documented in this encounter Results * XR FOOT RT MIN 3V (10/25/2023 1:29 PM EST) Anatomical Region Laterality Modality Other 10/25/2023 1:29 PM EST Narrative 10/25/2023 1:31 [place] [address] XRay Report Signed Patient: MARY FUENTES MR#: [id number] : 1970 Acct:[id number] Age/Sex: 53 / F ADM Date: 10/25/23 Loc: RAD Attending Dr: Sade Felix D.P.M. Ordering Physician: Sade Felix D.P.M. Date of Service: 10/25/23 Procedure(s): XR foot RT min 3V Accession Number(s): [id number] cc: Sade Felix D.P.M.; Isatu GÓMEZ [place] [address] Patient Name: MARY FUENTES MRN: [id number] date: 1970 Sex: F Assigned Patient Location: [facility] Current Patient Location: [facility] Accession/Order Number: [id number] Exam Date: 10/25/2023 09:09 Report Date: 10/25/2023 13:29 At the request of: SADE FELIX Procedure: XR foot RT min 3V PROCEDURE: XR foot RT min 3V DATE: 10/25/2023 8:09 AM DENTAL DETAIL REPRESENTATIVE COMPARISONS: 09/13/2023 CLINICAL INDICATION: RIGHT FOOT F/U FINDINGS: There is no evidence of fractures or other acute osseous abnormalities. Extensive hindfoot and midfoot postop changes are again identified the surgical hardware is all in stable position and intact Pin is noted of the distal first metatarsal, stable. XR/XR foot RT min 3V IMPRESSION: Stable surgical changes of the right foot when compared to 09/13/2023. No evidence of hardware failure. No evidence of acute osseous abnormalities. Electronically authenticated by: DEISY GRAJEDA Date: 10/25/2023 13:29 Dictated By: Deisy Grajeda M.D. Signed By: 10/25/23 1338 DD/ 1329 TD/TT: Publicity Director: Procedure Note Radiology, Radiologist, - 01/10/2024 [place] [address] XRay Report Signed Patient: MARY FUENTES DMR#: [id number] : 1970Acct:[id number] Age/Sex: 53 / FADM Date: 10/25/23 Loc: RAD Attending Dr: Sade Felix D.P.M. Ordering Physician: Sade Felix D.P.M. Date of Service: 10/25/23 Procedure(s): XR foot RT min 3V Accession Number(s): [id number] cc: Sade Felix D.P.M.; Isatu GÓMEZ [place] [id number] Patient Name: MARY FUENTES MRN: [id number] date: 1970 Sex: F Assigned Patient Location: [facility] Current Patient Location: [facility] Accession/Order Number: [id number] Exam Date: 10/25/2023 09:09 Report Date: 10/25/2023 13:29 At the request of: SADE FELIX Procedure: XR foot RT min 3V PROCEDURE: XR foot RT min 3V DATE: 10/25/2023 8:09 AM DENTAL DETAIL REPRESENTATIVE COMPARISONS: 09/13/2023 CLINICAL INDICATION: RIGHT FOOT F/U FINDINGS: There is no evidence of fractures or other acute osseous abnormalities. Extensive hindfoot and midfoot postop changes are again identified the surgical hardware is all in stable position and intact Pin is noted of the distal first metatarsal, stable. XR/XR foot RT min 3V IMPRESSION: Stable surgical changes of the right foot when compared to 09/13/2023. No evidence of hardware failure. No evidence of acute osseous abnormalities. Electronically authenticated by: DEISY GRAJEDA Date: 10/25/2023 13:29 Dictated By: Deisy Grajeda M.D. Signed By:10/25/23 1331 DD/ 1329 TD/TT: Publicity Director: us Generic External Data Provider [facility] Final Result documented in this encounter Visit Diagnoses Not on filedocumented in this encounter Care Teams Supervisor Dry Cleaning Relationship Specialty Start Date End Date Eliceo Gómez DO [address] [place] [address] PCP - General Family Medicine 04/04/23 Eliceo Gómez DO [address] [place] [address] PCP - [facility] 05/06/2310/05 Beata Hernandez PA [address] [place] [address] Dietitian Nutrition 08/08/23 05/16/24 Juan Damico DO [address] [place] [address] Referring Physician Obstetrics and Gynecology 05/20/24 documented as of this encounter
--- OUTSIDE RECORDS SUMMARY | 2025-04-02 07:42 | XMS_ITS | Encounter Summary ---
Author Organization [facility] Address [address] [facility] [place] [address] Care Team Providers Care Instructional Technology Coordinator Name Role Phone Eliceo Gómez DO Primary Care Provider [phone] Eliceo Gómez DO Unavailable [phone] Juan Damico DO Unavailable [phone] Encounter Details Date Type Department Care Team (Late st Contact Info) Description 10/07/2024 Abstract [facility] 230 [address] [facility] 230 [place] [address] Eliceo Gómez DO [address] [facility] 230 [place] [address] Social History Tobacco Use Types Packs/Day Years [...] you attend chur or synagogue services? Never 05/01/2024 Do you belong to any clubs o r organizations such as adventist groups, unions, fraternal or athletic groups, or [...] 0 07/11/2024 [facility] Health - Occupational Stress Questionnaire Answer Date [...] place to sleep or slept in a snf (including now)? No 10/25/2023 Housing Stability Vital Sign Answer Melecio e Recorded In the last 12 months, was t here a time when you were not able to pay the mortgage or rent on time? No 05/01/2024 In the past 12 months, how m any times have you moved where you were living? 1 05/01/2024 At any time in the past 12 m [facility], were you homeless or living in a snf (including now)? No 05/01/2024 Comments No Sex [...] 4:00 PM EDT Procedure Visit [facility] [address] [place] [phone] Yo Galeas DO [address] [place] [facility] 11/20/2025 8:30 AM EST Office Visit [facility] [address] [place] [phone] Nelsy Harris, ENFORCEMENT SAFETY OFFICER-BUDGET ASSISTANT [address] [place] [address] documented as of this encounter Visit Diagnoses Not on filedocumented in this encounter Care Teams Instructional Technology Coordinator Relationship Specialty Start Date End Date Eliceo Gómez DO [address] [place] [address] PCP - General Family Medicine 04/04/23 Eliceo Gómez DO [address] [place] [address] PCP - [facility] 05/06/2310/05 Juan Damico DO [address] [place] [address] Referring Physician Obstetrics and Gynecology 05/20/24 documented as of this encounter
--- OUTSIDE RECORDS SUMMARY | 2025-04-02 07:42 | XMS_ITS | Encounter Summary ---
Author Organization [facility] Address [address] [facility] [place] [address] Care Team Providers Care Harvester Operator Name Role Phone Eliceo Gómez DO Primary Care Provider [phone] Eliceo Gómez DO Unavailable [phone] Beata Hernandez Unavailable Juan Damico DO Unavailable [phone] Encounter Details Date Type Department Care Team (Late st Contact Info) Description 06/12/2023 Orders Only [facility] [address] [facility] [address] [place] [address] A, Unknown Practice [address] [place] [address] Social History Tobacco Use Types Packs/Day Years [...] How often do you attend chur or catholic services? Never 04/14/2023 Do you belong to any clubs o r organizations such as judaism groups, unions, fraternal or athletic groups, or [...] Recorded Patient Health Questionnaire-2 Score 0 06/08/2023 [facility] - Occupational Stress Questionnaire Answer Date Recorded [...] suspected to have Coronavirus/COVID-19? No / Unsure 06/05/2023 2:52 PM EDT documented as of this encounter Plan of Treatment Upcoming Encounters Date Type Department Care Team (Late st Contact Info) Description 04/30/2025 4:00 PM EDT Procedure Visit [facility]ITA [facility] [address] [place] [phone] Yo Galeas DO [address] [place] [address] 11/20/2025 8:30 AM EST Office Visit [facility] [address] [place] [address] Nelsy Harris APRN-PLASTICS REPAIRER [address] [place] [address] documented as of this encounter Procedures Procedure Name Priority Date/Time Associated Diagnosis Comments XR FOOT 3+ VIEWS RIGHT Routine 06/09/2023 10:17 AM EDT documented in this encounter Results * XR FOOT 3+ VIEWS RIGHT (06/09/2023 10:17 AM EDT) Anatomical Region Laterality Modality Radiographic Ira ging us Unknown Practice A IMG XR PROCEDURES Final Resul t documented in this encounter Visit Diagnoses Not on filedocumented in this encounter Care Teams Harvester Operator Relationship Specialty Start Date End Date Eliceo Gómez DO [address] [place] [address] PCP - General Family Medicine 04/04/23 Eliceo Gómez DO [address] [place] [address] PCP - [facility] 05/06/2310/05 Beata Hernandez PA [address] [place] [address] Dietitian Nutrition 08/08/23 05/16/24 Juan Damico DO [address] [place] [address] Referring Physician Obstetrics and Gynecology 05/20/24 documented as of this encounter
--- OUTSIDE RECORDS SUMMARY | 2025-04-02 07:42 | XMS_ITS | Encounter Summary ---
Author Organization [facility] Address [address] [place] [address] Care Team Providers Care Lathe [place] Name Role Phone Eliceo Gómez DO Primary Care Provider [phone] Eliceo Gómez DO Unavailable [phone] Beata Hernandez Unavailable Juan Damico DO Unavailable [phone] Encounter Details Date Type Department Care Team (Late st Contact Info) Description 09/13/2023 Orders Only [facility] [address] [facility] [address] [place] [address] A, Unknown Practice [address] [place] [address] Social History Tobacco Use Types Packs/Day Years [...] How often do you attend chur or rastafari services? Never 04/14/2023 Do you belong to any clubs o r organizations such as mosque groups, unions, fraternal or athletic groups, or [...] Recorded Patient Health Questionnaire-2 Score 0 07/06/2023 [facility] - Occupational Stress Questionnaire Answer Date [...] in a nursing home (including now)? No 04/14/2023 Comments No Sex [...] suspected to have Coronavirus/COVID-19? No / Unsure 09/14/2023 10:18 AM EST documented as of this encounter Plan of Treatment Upcoming Encounters Date Type Department Care Team (Late st Contact Info) Description 04/30/2025 4:00 PM EDT Procedure Visit [facility] [address] [place] [phone] Yo Galeas DO [address] [place] [address] 11/20/2025 8:30 AM EST Office Visit [facility] [facility] [address] [place] [address] Nelsy Harris APRN-SPRAY DRIER [address] [place] [address] documented as of this encounter Procedures Procedure Name Priority Date/Time Associated Diagnosis Comments XR FOOT 3+ VIEWS RIGHT Routine 09/13/2023 3:29 PM EST SCANNED LABS Routine 09/13/2023 3:02 PM EST SCANNED LABS Routine 09/08/2023 9:24 AM EDT documented in this encounter Results * XR FOOT 3+ VIEWS RIGHT (09/13/2023 3:29 PM EST) Anatomical Region Laterality Modality Radiographic Ira ging us Unknown Practice A IMG XR PROCEDURES Final Resul t * [facility] (09/13/2023 3:02 PM EST) us Unknown Practice A LAB CHG PERFORMABLES Final Re sult * [facility] (09/08/2023 9:24 AM EDT) us Unknown Practice A LAB CHG PERFORMABLES Final Re sult documented in this encounter Visit Diagnoses Not on filedocumented in this encounter Care Teams Lathe [place] Relationship Specialty Start Date End Date Eliceo Gómez DO [address] [place] [address] PCP - General Family Medicine 04/04/23 Eliceo Gómez DO [address] [place] [address] PCP - [facility] 05/06/2310/05 Beata Hernandez PA [address] [place] [address] Dietitian Nutrition 08/08/23 05/16/24 Juan Damico DO [address] [place] [address] Referring Physician Obstetrics and Gynecology 05/20/24 documented as of this encounter
--- OUTSIDE RECORDS SUMMARY | 2025-04-02 07:42 | XMS_ITS | Encounter Summary ---
Author Organization [facility] Address [address] [place] [address] Care Team Providers Care Slubber Machine Operator Name Role Phone Eliceo Gómez DO Primary Care Provider [phone] Eliceo Gómez DO Unavailable [phone] Juan Damico DO Unavailable [phone] Encounter Details Date Type Department Care Team (Late st Contact Info) Description 10/03/2024 Clinisync Result Encounter [facility] External Department Unsolicited [...] you attend chur or catholic services? Never 05/01/2024 Do you belong to any clubs o r organizations such as confucianist groups, unions, fraternal or athletic groups, or [...] Recorded Patient Health Questionnaire-2 Score 0 07/11/2024 [facility] ional Health - Occupational [...] in a half-way (including now)? No 10/25/2023 Housing Stability Vital Sign Answer Melecio e Recorded In the last 12 months, was t here a time when you were not able to pay the mortgage or rent on time? No 05/01/2024 In the past 12 months, how m any times have you moved where you were living? 1 05/01/2024 At any time in the past 12 m [facility], were you homeless or living in a half-way (including now)? No 05/01/2024 Comments No Sex [...] 4:00 PM EDT Procedure Visit [facility]ITA [facility] [address] [place] [phone] Yo Galeas DO [address] [place] [address] 11/20/2025 8:30 AM EST Office Visit [facility] [address] [place] [address] Nelsy Harris, INSPECTOR WIRE PRODUCTS-CASEWORKER PROTECTIVE SERVICES [address] [place] [address] documented as of this encounter Procedures Procedure Name Priority Date/Time Associated Diagnosis Comments XR FOOT RT MIN 3V 10/03/2024 9:2 5 AM EST documented in this encounter Results * XR FOOT RT MIN 3V (10/03/2024 9:25 AM EST) Anatomical Region Laterality Modality Other 10/03/2024 9:25 AM EST Narrative 10/03/2024 9:28 AM EST [address] [address] XRay Report Signed Patient: MARY FUENTES MR#: [id number] : 1970 Acct:[id number] Age/Sex: 54 / F ADM Date: 10/01/24 Loc: RAD Attending Dr: Sade Felix D.P.M. Ordering Physician: Sade Felix D.P.M. Date of Service: 10/01/24 Procedure(s): XR foot RT min 3V Accession Number(s): [id number] cc: Sade Felix D.P.M.; Isatu GÓMEZ [address] [id number] Patient Name: MARY FUENTES MRN: [id number]:[id number] date: 1970 Sex: F Assigned Patient Location: RAD Current Patient Location: RAD Accession/Order Number: [id number] Exam Date: 10/01/2024 07:45 Report Date: 10/03/2024 09:25 At the request of: SADE FELIX Procedure: XR foot RT min 3V PROCEDURE: XR foot RT min 3V HISTORY: Right Foot Pain M79.671 COMPARISON: XR foot right 07/30/2024 FINDINGS: BONES:Prior calcaneal osteotomy and repair. Mechanical fusion of the talocalcaneal and talonavicular joints via lag screws. Osteotomy and wedge placement within the medial cuneiform. Osteotomy and single screw repair of head of first metatarsal. SOFT TISSUES:No visible soft tissue swelling. EFFUSION:None visible. OTHER: Negative. XR/XR foot RT min 3V IMPRESSION: 1. Stable surgical changes without evidence of hardware failure or change in alignment. 2. No acute bone abnormality. Electronically authenticated by: ADAM OLIVEROS Date: 10/03/2024 09:25 Dictated By: Adam Oliveros M.D. Signed By: 10/03/24927 DD/ 4 TD/TT: Scissors Grinder: Procedure Note Radiology, Radiologist, MD - 10/03/2024 [place] [address] XRay Report Signed Patient: MARY FUENTES DMR#: [id number] : 1970Acct:[id number] Age/Sex: 54 / FADM Date: 10/01/24 Loc: RAD Attending Dr: Sade Felix D.P.M. Ordering Physician: Sade Felix D.P.M. Date of Service: 10/01/24 Procedure(s): XR foot RT min 3V Accession Number(s): [id number] cc: Sade Felix D.P.M.; Isatu GÓMEZ [place] [id number] Patient Name: MARY FUENTES MRN: [facility]:[id number] date: 1970 Sex: F Assigned Patient Location: [facility] Current Patient Location: [facility] Accession/Order Number: [id number] Exam Date: 10/01/2024 07:45 Report Date: 10/03/2024 09:25 At the request of: SADE FELIX Procedure: XR foot RT min 3V PROCEDURE: XR foot RT min 3V HISTORY: Right Foot Pain M79.671 COMPARISON: XR foot right 07/30/2024 FINDINGS: BONES:Prior calcaneal osteotomy and repair. Mechanical fusion of the talocalcaneal and talonavicular joints via lag screws. Osteotomy and wedge placement within the medial cuneiform. Osteotomy and single screw repairof head of first metatarsal. SOFT TISSUES:No visible soft tissue swelling. EFFUSION:None visible. OTHER: Negative. XR/XR foot RT min 3V IMPRESSION: 1. Stable surgical changes without evidence of hardware failure or changein alignment. 2. No acute bone abnormality. Electronically authenticated by: ADAM OLIVEROS Date: 10/03/2024 09:25 Dictated By: Adam Oliveros M.D. Signed By:10/03/24927 DD/ 4 TD/TT: Scissors Grinder: us Generic External Data Provider [facility] Final Result documented in this encounter Visit Diagnoses Not on filedocumented in this encounter Care Teams Slubber Machine Operator Relationship Specialty Start Date End Date Eliceo Gómez DO [address] [place] [address] PCP - General Family Medicine 04/04/23 Eliceo Gómez DO [address] [place] [address] PCP - [facility] 05/06/2310/05 Juan Damico DO [address] [place] [address] Referring Physician Obstetrics and Gynecology 05/20/24 documented as of this encounter
--- OUTSIDE RECORDS SUMMARY | 2025-04-02 07:42 | XMS_ITS | Encounter Summary ---
Author Organization [facility] Address [address] [place] [address] Care Team Providers Care Eye Surgeon Name Role Phone Eliceo Gómez DO Primary Care Provider Eliceo Gómez DO Unavailable [phone] Beata Hernandez Unavailable Juan Damico DO Unavailable [phone] Encounter Details Date Type Department Care Team (Late st Contact Info) Description 06/20/2023 Abstract [facility] OB [address] [facility] [address] [place] [address] Juan Damico, DO [address] [facility] [address] [place] [address] Social History Tobacco Use Types Packs/Day Years [...] How often do you attend chur or quaker services? Never 04/14/2023 Do you belong to any clubs o r organizations such as episcopalian groups, unions, fraternal or athletic groups, or [...] Recorded Patient Health Questionnaire-2 Score 0 06/08/2023 [facility] - Occupational Stress Questionnaire Answer [...] place to sleep or slept in a retirement (including now)? No 04/14/2023 Comments No Sex [...] 4:00 PM EDT Procedure Visit [facility] [place] [address] [place] [phone] Yo Galeas DO [address] [place] [address] 11/20/2025 8:30 AM EST Office Visit [facility] [facility] [address] [place] [phone] Nelsy Harris APRN-DRAWING IN MACHINE TENDER HELPER [address] [place] [address] documented as of this encounter Visit Diagnoses Not on filedocumented in this encounter Care Teams Eye Surgeon Relationship Specialty Start Date End Date Eliceo Gómez DO [address] [place] [address] PCP - General Family Medicine 04/04/23 Eliceo Gómez DO [address] [place] [address] PCP - [facility] 05/06/2310/05 Beata Hernandez PA [address] [place] [address] Dietitian Nutrition 08/08/23 05/16/24 Juan Damico DO [address] [place] [address] Referring Physician Obstetrics and Gynecology 05/20/24 documented as of this encounter
--- OUTSIDE RECORDS SUMMARY | 2025-04-02 07:42 | XMS_ITS | Encounter Summary ---
Author Organization [facility] Address [address] [facility] [place] [address] Care Team Providers Care Guest Services Assistant Name Role Phone Eliceo Gómez DO Primary Care Provider [phone] Eliceo Gómez DO Unavailable [phone] Juan Damico DO Unavailable [phone] Encounter Details Date Type Department Care Team (Late st Contact Info) Description 03/06/2025 Abstract [facility] [address] [facility] 230 [place] [address] Eliceo Gómez DO [address] [facility] 230 [place] [address] Social History Tobacco Use Types Packs/Day Years [...] How often do you attend chur or restoration services? Never 05/01/2024 Do you belong to any clubs o r organizations such as mu-ism groups, unions, fraternal or athletic groups, or [...] Recorded Patient Health Questionnaire-2 Score 0 01/20/2025 [facility] - Occupational Stress Questionnaire Answer Date [...] place to sleep or slept in a assisted (including now)? No 10/25/2023 Housing Stability Vital Sign Answer Melecio e Recorded In the last 12 months, was t here a time when you were not able to pay the mortgage or rent on time? No 05/01/2024 In the past 12 months, how m any times have you moved where you were living? 1 05/01/2024 [facility] time [facility] you [facility] or living in a assisted (including now)? No 05/01/2024 Comments No Sex [...] 4:00 PM EDT Procedure Visit [facility] [address] [place] [phone] Yo Galeas DO [address] [place] [address] 11/20/2025 8:30 AM EST Office Visit [facility] [address] [place] [address] Nelsy Harris, WIND TECHNICIAN-MILLER [employer]IL[employer]RIED SALT [address] [place] [address] documented as of this encounter Visit Diagnoses Not on filedocumented in this encounter Additional Health Concerns Assessment Noted Time PHQ-9 Depression Total Score: 0 01/21/20 25 1:00 PM EDT documented as of this encounter Care Teams Guest Services Assistant Relationship Specialty Start Date End Date Eliceo Gómez DO [address] [place] [address] PCP - General Family Medicine 04/04/23 Eliceo Gómez DO [address] [place] [address] PCP - [facility] 05/06/2310/05 Juan Damico DO [address] [place] [address] Referring Physician Obstetrics and Gynecology 05/20/24 documented as of this encounter
--- OUTSIDE RECORDS SUMMARY | 2025-04-02 07:42 | XMS_ITS | Encounter Summary ---
Author Organization [facility] Address [address] [facility] [place] [address] Care Team Providers Care Life Skills Trainer Name Role Phone Eliceo Gómez DO Primary Care Provider [phone] Eliceo Gómez DO Unavailable [phone] Beata Hernandez Unavailable Juan Damico DO Unavailable [phone] Encounter Details Date Type Department Care Team (Late st Contact Info) Description 06/07/2023 Orders Only [facility] 230 [address] [facility] [address] [place] [address] A, Unknown Practice [address] [place] [address] Social History Tobacco Use Types Packs/Day Years [...] How often do you attend chur or yarsani services? Never 04/14/2023 Do you belong to any clubs o r organizations such as religious groups, unions, fraternal or athletic groups, or [...] Recorded Patient Health Questionnaire-2 Score 0 06/08/2023 [facility] - Occupational Stress Questionnaire Answer Date [...] PM EDT documented as of this encounter Functional Status * Over the past 2 weeks, how often have you been bothered by any of the following problems? Question Answer Date of Assessment Author Little interest or pleasure in doing things Not at all 06/08/2023 10:41 AM EDT Raad Hung LPN Feeling down, depressed, or hopeless Not at all 06/08/2023 10:41 AM EDT Lissette Fowler LPN Patient Health Questionnaire-2 Score 0 06/08/2023 10:41 AM EDT Raad Fowler LPN documented as of this encounter Plan of Treatment Upcoming Encounters Date Type Department Care Team (Late st Contact Info) Description 04/30/2025 4:00 PM EDT Procedure Visit [facility] [address] [place] [address] Yo Galeas DO [address] [place] [address] 11/20/2025 8:30 AM EST Office Visit [facility] [address] [place] [address] Nelsy Harris, ROTARY FILTER OPERATOR-ELECTRIC TRUCKER [address] [place] [address] documented as of this encounter Procedures Procedure Name Priority Date/Time Associated Diagnosis Comments XR FOOT 3+ VIEWS RIGHT Routine 06/06/2023 8:26 AM EDT documented in this encounter Results * XR foot 3+ views right (06/06/2023 8:26 AM EDT) Anatomical Region Laterality Modality Lower Extremities, Foot Right Radiogra phic Imaging us Unknown Practice A IMG XR PROCEDURES Final Resul t documented in this encounter Visit Diagnoses Not on filedocumented in this encounter Care Teams Life Skills Trainer Relationship Specialty Start Date End Date Eliceo Gómez DO [address] [place] [address] PCP - General Family Medicine 04/04/23 Eliceo Gómez DO [address] [place] [address] PCP - [facility] 05/06/2310/05 Beata Hernandez PA [address] [place] [address] Dietitian Nutrition 08/08/23 05/16/24 Juan Damico DO [address] [place] [address] Referring Physician Obstetrics and Gynecology 05/20/24 documented as of this encounter
--- OUTSIDE RECORDS SUMMARY | 2025-04-02 07:42 | XMS_ITS | Encounter Summary ---
Author Organization [facility] Address [address] [facility] [place] [address] Care Team Providers Care Physical Meteorologist Name Role Phone Eliceo Gómez DO Primary Care Provider [phone] Eliceo Gómez DO Unavailable [phone] Beata Hernandez Unavailable Juan Damico DO Unavailable [phone] Encounter Details Date Type Department Care Team (Late st Contact Info) Description 06/28/2023 Orders Only [facility] 230 [address] [facility] [address] [place] [address] A, Unknown Practice [address] [place] [address] Social History Tobacco Use Types Packs/Day Years [...] you attend chur or confucianism services? Never 04/14/2023 Do you belong to any clubs o r organizations such as moravian groups, unions, fraternal or athletic groups, or [...] Recorded Patient Health Questionnaire-2 Score 0 06/08/2023 [facility] - Occupational Stress Questionnaire Answer Date [...] 4:00 PM EDT Procedure Visit [facility] [address] [place] [address] Yo Galeas DO [address] [place] [address] 11/20/2025 8:30 AM EST Office Visit [facility] [address] [place] [address] Nelsy Harris APRN-ANGLE SHEARER [address] [place] [address] documented as of this encounter Procedures Procedure Name Priority Date/Time Associated Diagnosis Comments XR FOOT 3+ VIEWS RIGHT Routine 06/28/2023 4:13 PM EDT documented in this encounter Results * XR foot 3+ views right (06/28/2023 4:13 PM EDT) Anatomical Region Laterality Modality Lower Extremities, Foot Right Radiogra phic Imaging us Unknown Practice A IMG XR PROCEDURES Final Resul t documented in this encounter Visit Diagnoses Not on filedocumented in this encounter Care Teams Physical Meteorologist Relationship Specialty Start Date End Date Eliceo Gómez DO [address] [place] [address] PCP - General Family Medicine 04/04/23 lEiceo Gómez DO [address] [place] [address] PCP - [facility] 05/06/2310/05 Beata Hernandez PA [address] [place] [address] Dietitian Nutrition 08/08/23 05/16/24 Juan Damico DO [address] [place] [address] Referring Physician Obstetrics and Gynecology 05/20/24 documented as of this encounter
--- OUTSIDE RECORDS SUMMARY | 2025-04-02 07:42 | XMS_ITS | Encounter Summary ---
Author Organization [facility] Address [address] [facility] [place] [address] Care Team Providers Care Integration Specialist Name Role Phone Eliceo Gómez DO Primary Care Provider [phone] Eliceo Gómez DO Unavailable [phone] Juan Damico DO Unavailable [phone] Encounter Details Date Type Department Care Team (Late st Contact Info) Description 01/30/2025 Abstract [facility] [address] [facility] 230 [place] [address] Eliceo Gómez DO [address] [facility] 230 [place] [address] Social History Tobacco Use Types Packs/Day Years [...] How often do you attend chur or protestant services? Never 05/01/2024 Do you belong to any clubs o r organizations such as anglican groups, unions, fraternal or athletic groups, or [...] Recorded Patient Health Questionnaire-2 Score 0 01/20/2025 [facility] of Occupat ionsc Health - Occupational Stress [...] to sleep or slept in a senior living (including now)? No 10/25/2023 Housing Stability Vital [...] you homeless or living in a senior living (including now)? No 05/01/2024 Comments No Sex [...] Procedure Visit [facility] TOBIN [address] [place] [phone] Yo Galeas DO [address] [place] [address] 11/20/2025 8:30 AM EST Office Visit [facility] [address] [place] [address] Nelsy Harris, REGIONAL SALES CONSULTANT-HEALTH CARE COORDINATOR [address] [place] [address] documented as of this encounter Visit Diagnoses Not on filedocumented in this encounter Additional Health Concerns Assessment Noted Time PHQ-9 Depression Total Score: 0 01/21/20 25 1:00 PM EDT documented as of this encounter Care Teams Integration Specialist Relationship Specialty Start Date End Date Eliceo Gómez DO [address] [place] [address] PCP - General Family Medicine 04/04/23 Eliceo Gómez DO [address] [place] [address] PCP - [facility] 05/06/2310/05 Juan Damico DO [address] [place] [address] Referring Physician Obstetrics and Gynecology 05/20/24 documented as of this encounter
--- OUTSIDE RECORDS SUMMARY | 2025-04-02 07:42 | XMS_ITS | Encounter Summary ---
Author Organization [facility] Address [address] [place] [address] Care Team Providers Care Medicare Sales Executive Name Role Phone Eliceo Góemz DO Primary Care Provider [phone] Eliceo Gómez DO Unavailable [phone] Beata Hernandez Unavailable Juan Damico DO Unavailable [phone] Encounter Details Date Type Department Care Team (Late st Contact Info) Description 11/03/2023 Clinisync Result Encounter [facility] External Department Unsolicited [...] often do you attend chur ch or pentecostal services? Never 04/14/2023 Do you belong to any clubs o r organizations such as taoism groups, unions, fraternal or athletic groups, or [...] Recorded Patient Health Questionnaire-2 Score 0 10/03/2023 [facility] - Occupational Stress Questionnaire Answer Date [...] place to sleep or slept in a longterm (including now)? No 10/25/2023 Comments No Sex [...] Description 04/30/2025 4:00 PM EDT Procedure Visit [facility] [address] [place] [phone] Yo Galeas DO [address] [place] [address] 11/20/2025 8:30 AM EST Office Visit [facility] [address] [place] [phone] Nelsy Harris, BODY CORPORATE MANAGER-SOLID WASTE FACILITY OPERATOR [address] [place] [address] documented as of this encounter Procedures Procedure Name Priority Date/Time Associated Diagnosis Comments ECG 12-LEAD 11/03/2023 8:38 AM EST documented in this encounter Results * ECG 12-LEAD (11/03/2023 8:38 AM EST) Anatomical Region Laterality Modality Other 11/03/2023 8:38 AM EST Narrative 11/06/2023 5:22 PM EST [place] [id number] Electrocardiograph Report Signed Patient: MARY FUENTES MR#: [id number] : 1970 Acct:[id number] Age/Sex: 53 / F ADM Date: Loc: SURGOUT Attending Dr: Sade Felix D.P.M. Ordering Physician: Sade Felix D.P.M. Date of Service: 11/03/23 Procedure(s): ECG 12 lead Accession Number(s): [id number] cc: [facility] Test Date: 2023-11-03 Pat Name: MARY FUENTES Department: Room: - Gender: Female Marinator: : 1970 Requested By: SADE FELIX Order Number: [id number] Reading MD: RIGO EUCEDA Measurements Intervals [place] Rate: 52 P: -2 NV: 171 QRS: 9 QRSD: 92 T: 8 QT: 437 QTc: 410 Interpretive Statements SINUS BRADYCARDIA WITH SINUS ARRHYTHMIA No previous ECG available for comparison Electronically Signed On 11-06-2023 17:22:20 EST by RIGO EUCEDA Dictated By: Rigo Euceda D.O. Signed By: 11/06/23 172 DD/ 0838 TD/TT: Vehicle Service Agent: Procedure Note Radiology, Radiologist, MD - 11/06/2023 [facility] [place] [id number] Electrocardiograph Report Signed Patient: MARY FUENTES DMR#: [id number] : 1970Acct:[id number] Age/Sex: 53 / FADM Date: Loc: SURGOUT Attending Dr: Sade Felix D.P.M. Ordering Physician: Sade Felix D.P.M. Date of Service: 11/03/23 Procedure(s): ECG 12 lead Accession Number(s): [id number] cc: [facility] Test Date: 2023-11-03 Pat Name: MARY FUENTES Department: Room: - Gender: Female Marinator: : 1970 Requested By: SADE FELIX Order Number: [id number] Reading MD: RIGO EUCEDA Measurements Intervals [place] Rate: 52 P: -2 NV: 171 QRS: 9 QRSD: 92 T: 8 QT: 437 QTc: 410 Interpretive Statements SINUS BRADYCARDIA WITH SINUS ARRHYTHMIA No previous ECG available for comparison Electronically Signed On 11-06-2023 17:22:20 EST by RIGO EUCEDA Dictated By: Rigo Euceda D.O. Signed By:11/06/23 1722 DD/ 0838 TD/TT: Vehicle Service Agent: us Generic External Data Provider [facility] Final Result documented in this encounter Visit Diagnoses Not on filedocumented in this encounter Care Teams Medicare Sales Executive Relationship Specialty Start Date End Date Eliceo Gómez DO [address] [place] [address] PCP - General Family Medicine 04/04/23 Eliceo Gómez DO [address] [place] [address] PCP - [facility] 05/06/2310/05 Beata Hernandez PA [address] [place] [address] Dietitian Nutrition 08/08/23 05/16/24 Juan Damico DO [address] [place] [address] Referring Physician Obstetrics and Gynecology 05/20/24 documented as of this encounter
--- OUTSIDE RECORDS SUMMARY | 2025-04-02 07:42 | XMS_ITS | Encounter Summary ---
Author Organization [facility] Address [address] [place] [address] Care Team Providers Care Tape Recording Machine Operator Name Role Phone Eliceo Gómez DO Primary Care Provider [phone] Eliceo Gómez DO Unavailable [phone] Beata Hernandez Unavailable Juan Damico DO Unavailable [phone] Encounter Details Date Type Department Care Team (Late st Contact Info) Description 08/03/2023 Orders Only [facility] [address] [facility] [address] [place] [address] A, Unknown Practice [address] [place] [address] Social History Tobacco Use Types Packs/Day Years [...] How often do you attend chur or pentecostal services? Never 04/14/2023 Do you belong to any clubs o r organizations such as hoahaoism groups, unions, fraternal or athletic groups, or [...] Recorded Patient Health Questionnaire-2 Score 0 07/06/2023 [facility] - Occupational Stress Questionnaire Answer Date Recorded [...] 4:00 PM EDT Procedure Visit [facility] [address] [place] [phone] Yo Galeas DO [address] [place] [address] 11/20/2025 8:30 AM EST Office Visit [facility] [address] [place] [address] Nelsy Harris APRN-REPAIR MILLER [address] [place] [address] documented as of this encounter Procedures Procedure Name Priority Date/Time Associated Diagnosis Comments XR FOOT 3+ VIEWS RIGHT Routine 08/03/2023 4:41 PM EDT documented in this encounter Results * XR FOOT 3+ VIEWS RIGHT (08/03/2023 4:41 PM EDT) Anatomical Region Laterality Modality Radiographic Ira ging us Unknown Practice A IMG XR PROCEDURES Final Resul t documented in this encounter Visit Diagnoses Not on filedocumented in this encounter Care Teams Tape Recording Machine Operator Relationship Specialty Start Date End Date Eliceo Gómez DO [address] [place] [address] PCP - General Family Medicine 04/04/23 Eliceo Gómez DO [address] [place] [address] PCP - [facility] 05/06/2310/05 Beata Hernandez PA [address] [place] [address] Dietitian Nutrition 08/08/23 05/16/24 Juan Damico DO [address] [place] [address] Referring Physician Obstetrics and Gynecology 05/20/24 documented as of this encounter
--- OUTSIDE RECORDS SUMMARY | 2025-04-02 07:42 | XMS_ITS | Encounter Summary ---
Author Organization [facility] Address [address] [facility] [place] [address] Care Team Providers Care Ceramic Coater Name Role Phone Eliceo Gómez DO Primary Care Provider [phone] Eliceo Gómez DO Unavailable [phone] Juan Damico DO Unavailable [phone] Encounter Details Date Type Department Care Team (Late st Contact Info) Description 12/26/2024 Abstract [facility] [address] [facility] [address] [place] [address] Eliceo Gómez DO [address] [facility] [address] [place] [address] Social History Tobacco Use Types Packs/Day Years [...] How often do you attend chur or sikh services? Never 05/01/2024 Do you belong to [...] Recorded Patient Health Questionnaire-2 Score 0 07/11/2024 [facility] of Occupat ionks Health - Occupational [...] any time in the past 12 m [facility], were you homeless or [...] Procedure Visit [facility] [address] [place] [phone] Yo Galeas DO [address] [place] [facility] 11/20/2025 8:30 AM EST Office Visit [facility] [address] [place] [phone] Nelsy Harris, BEAD STRINGER-RECREATION TECHNICIAN [address] [place] [address] documented as of this encounter Visit Diagnoses Not on filedocumented in this encounter Care Teams Ceramic Coater Relationship Specialty Start Date End Date Eliceo Gómez DO [address] [place] [address] PCP - General Family Medicine 04/04/23 Eliceo Gómez DO [address] [place] [address] PCP - [facility] 05/06/2310/05 Juan Damico DO [address] [place] [address] Referring Physician Obstetrics and Gynecology 05/20/24 documented as of this encounter
--- OUTSIDE RECORDS SUMMARY | 2025-04-02 07:42 | XMS_ITS | Encounter Summary ---
Author Organization [facility] Address [address] [place] [address] Care Team Providers Care Foreign Clerk Name Role Phone Eliceo Gómez DO Primary Care Provider [phone] Eliceo Gómez DO Unavailable [phone] Beata Hernandez Unavailable Juan Damico DO Unavailable Encounter Details Date Type Department Care Team (Late st Contact Info) Description 11/13/2023 Clinisync Result Encounter [facility] External Department Unsolicited [...] often do you attend chur ch or orthodoxy services? Never 04/14/2023 Do you belong to [...] Patient Health Questionnaire-2 Score 0 10/03/2023 [facility] - [facility]ational Stress Questionnaire Answer [...] in a snf (including now)? No 10/25/2023 Comments No Sex [...] Description 04/30/2025 4:00 PM EDT Procedure Visit [facility] [address] [place] [phone] Yo Galeas DO [address] [place] [address] 11/20/2025 8:30 AM EST Office Visit [facility] [address] [place] [phone] Nelsy Harris, BAGMAN/WOMAN-PEOPLE MANAGER [address] [place] [address] documented as of this encounter Procedures Procedure Name Priority Date/Time Associated Diagnosis Comments XR FOOT RT MIN 3V 11/13/2023 12: 52 PM EST documented in this encounter Results * XR FOOT RT MIN 3V (11/13/2023 12:52 PM EST) Anatomical Region Laterality Modality Other 11/13/2023 12:5 2 PM EST Narrative 11/13/2023 12:54 PM EST [address] [address] XRay Report Signed Patient: MARY FUENTES MR#: [id number] : 1970 Acct:[id number] Age/Sex: 53 / F ADM Date: 11/13/23 Loc: SURGOUT Attending Dr: Jacob Felix D.P.M. Ordering Physician: Ritchie Gonzalez D.P.M. Date of Service: 11/13/23 Procedure(s): XR foot RT min 3V Accession Number(s): [id number] cc: Isatu GÓMEZ ; Ritchie Gonzalez D.P.M. [place] [id number] Patient Name: MARY FUENTES MRN: [id number] date: 1970 Sex: F Assigned Patient Location: [facility] Current Patient Location: Accession/Order Number: [id number] Exam Date: 11/13/2023 11:30 Report Date: 11/13/2023 12:52 At the request of: RITCHIE GONZALEZ Procedure: XR foot RT min 3V PROCEDURE: XR foot RT min 3V COMPARISON: 10/25/2023 HISTORY: Postop x-ray pacu FINDINGS: BONES:Interval revision. Removal of 2 surgical joshua across the lateral cuboid calcaneal joint. Change in appearance of a calcaneal wedged spacer. Stable wedge spacer medial cuneiform. Stable talonavicular and posterior talocalcaneal fusion. Remote osteotomy and fixation with a single screw head of the first metatarsal. SOFT TISSUES:Lateral foot soft tissue swelling and subcutaneous emphysema EFFUSION:None visible. OTHER: Negative. XR/XR foot RT min 3V IMPRESSION: Postsurgical changes Electronically authenticated by: NICKI DACOSTA Date: 11/13/2023 12:52 Dictated By: Nicki Dacosta M.D. Signed By: 11/13/23 1254 DD/ 1252 TD/TT: Manager Critical Care Unit: Procedure Note Radiology, Radiologist, MD - 01/10/2024 [facility] [place] [id number] XRay Report Signed Patient: MARY FUENTES DMR#: [id number] : 1970Acct:[id number] Age/Sex: 53 / FADM Date: 11/13/23 Loc: SURGOUT Attending Dr: Jacob Felix D.P.M. Ordering Physician: Ritchie Gonzalez D.P.M. Date of Service: 11/13/23 Procedure(s): XR foot RT min 3V Accession Number(s): [id number] cc: Isatu GÓMEZ ; Ritchie Gonzalez D.P.M. [facility] [place] [id number] Patient Name: MARY FUENTES MRN: [id number] date: 1970 Sex: F Assigned Patient Location: [facility] Current Patient Location: Accession/Order Number: [id number] Exam Date: 11/13/2023 11:30 Report Date: 11/13/2023 12:52 At the request of: RITCHIE GONZALEZ Procedure: XR foot RT min 3V PROCEDURE: XR foot RT min 3V COMPARISON: 10/25/2023 HISTORY: Postop x-ray pacu FINDINGS: BONES:Interval revision. Removal of 2 surgical joshua across the lateral cuboid calcaneal joint. Change in appearance of a calcaneal wedged spacer. Stable wedge spacer medial cuneiform. Stable talonavicular and posterior talocalcaneal fusion. Remote osteotomy and fixation with a single screwhead of the first metatarsal. SOFT TISSUES:Lateral foot soft tissue swelling and subcutaneous emphysema EFFUSION:None visible. OTHER: Negative. XR/XR foot RT min 3V IMPRESSION: Postsurgical changes Electronically authenticated by: NICKI DACOSTA Date: 11/13/2023 12:52 Dictated By: Nicki Dacosta M.D. Signed By:11/13/23 1254 DD/ 125 TD/TT: Manager Critical Care Unit: Generic External Data Provider [facility] Final Result documented in this encounter Visit Diagnoses Not on filedocumented in this encounter Care Teams Foreign Clerk Relationship Specialty Start Date End Date Eliceo Gómez DO [address] [place] [address] PCP - General Family Medicine 04/04/23 Eliceo Gómez DO [address] [place] [address] PCP - [facility] 05/06/2310/05 Beata Hernandez PA [address] [place] [address] Dietitian Nutrition 08/08/23 05/16/24 Juan Damico DO [address] [place] [address] Referring Physician Obstetrics and Gynecology 05/20/24 documented as of this encounter
--- OUTSIDE RECORDS SUMMARY | 2025-04-02 07:42 | XMS_ITS | Encounter Summary ---
Author Organization [facility] Address [address] [place] [place] [address] Care Team Providers Care Immigration Case Worker Name Role Phone Eliceo Gómez DO Primary Care Provider [phone] Eliceo Gómez DO Unavailable [phone] Juan Damico DO Unavailable Encounter Details Date Type Department Care Team (Late st Contact Info) Description 11/20/2024 Abstract [facility] [address] [facility] [address] [place] [address] Eliceo Gómez DO [address] [facility] [address] [place] [address] Social History Tobacco Use Types Packs/Day Years [...] How often do you attend chur or jainism services? Never 05/01/2024 Do you belong to any clubs o r organizations such as jainism groups, unions, fraternal or athletic groups, or [...] Recorded Patient Health Questionnaire-2 Score 0 07/11/2024 [facility] - Occupational Stress Questionnaire Answer Date [...] place to sleep or slept in a usp (including now)? No 10/25/2023 Housing Stability Vital Sign Answer Melecio e Recorded In the last 12 months, was t here a time when you were not able to pay the mortgage or rent on time? No 05/01/2024 In the past 12 months, how m any times have you moved where you were living? 1 05/01/2024 At any time in the past 12 m [facility], were you homeless or living in a usp (including now)? No 05/01/2024 Comments No Sex [...] 4:00 PM EDT Procedure Visit [facility] [address] [place] [phone] Yo Galeas DO [address] Karina [facility] 11/20/2025 8:30 AM EST Office Visit [facility] [address] [place] [phone] Nelsy Harris, REGIONAL MERCHANDISING MANAGER-EYELET ROW MARKER [address] [place] [address] documented as of this encounter Visit Diagnoses Not on filedocumented in this encounter Care Teams Immigration Case Worker Relationship Specialty Start Date End Date Eliceo Gómez DO [address] [place] [address] PCP - General Family Medicine 04/04/23 Eliceo Gómez DO [address] [place] [address] PCP - [facility] 05/06/2310/05 Juan Damico DO [address] [place] [address] Referring Physician Obstetrics and Gynecology 05/20/24 documented as of this encounter
--- OUTSIDE RECORDS SUMMARY | 2025-04-02 07:42 | XMS_ITS | Encounter Summary ---
Author Organization [facility] Address [address] [place] [address] Care Team Providers Care Child Support Case Officer Name Role Phone Eliceo Gómez DO Primary Care Provider [phone] Eliceo Gómez DO Unavailable [phone] Beata Hernandez Unavailable Juan Damico DO Unavailable [phone] Encounter Details Date Type Department Care Team (Late st Contact Info) Description 07/12/2023 Orders Only [facility] [address] [facility] [address] [place] [phone] A, Unknown Practice [address] [place] [address] Social History Tobacco Use Types Packs/Day Years [...] How often do you attend chur or yazdanism services? Never 04/14/2023 Do you belong to any clubs o r organizations such as baptist groups, unions, fraternal or athletic groups, or [...] Recorded Patient Health Questionnaire-2 Score 0 07/06/2023 [facility] - Occupational Stress Questionnaire Answer Date [...] place to sleep or slept in a custodial (including now)? No 04/14/2023 Comments No Sex [...] 4:00 PM EDT Procedure Visit [facility] [address] [place] [phone] Yo Galeas DO [address] [place] [address] 11/20/2025 8:30 AM EST Office Visit [facility] [address] [place] [address] Nelsy Harris APRN-WEIGH TANK OPERATOR [address] [place] [address] documented as of this encounter Procedures Procedure Name Priority Date/Time Associated Diagnosis Comments XR FOOT 3+ VIEWS RIGHT Routine 07/12/2023 2:20 PM EDT documented in this encounter Results * XR foot 3+ views right (07/12/2023 2:20 PM EDT) Anatomical Region Laterality Modality Lower Extremities, Foot Right Radiogra phic Imaging us Unknown Practice A IMG XR PROCEDURES Final Resul t documented in this encounter Visit Diagnoses Not on filedocumented in this encounter Care Teams Child Support Case Officer Relationship Specialty Start Date End Date Eliceo Gómez DO [address] [place] [address] PCP - General Family Medicine 04/04/23 Eliceo Gómez DO [address] [place] [address] PCP - [facility] 05/06/2310/05 Beata Hernandez PA [address] [place] [address] Dietitian Nutrition 08/08/23 05/16/24 Juan Damico DO [address] [place] [address] Referring Physician Obstetrics and Gynecology 05/20/24 documented as of this encounter
--- OUTSIDE RECORDS SUMMARY | 2025-04-02 07:42 | XMS_ITS | Encounter Summary ---
Author Organization [facility] Address [address] [place] [address] Care Team Providers Care Dial Lathe Operator Name Role Phone Eliceo Gómez DO Primary Care Provider Eliceo Gómez DO Unavailable [phone] Beata Hernandez Unavailable Juan Damico DO Unavailable [phone] Encounter Details Date Type Department Care Team (Late st Contact Info) Description 07/25/2023 Orders Only [facility] [address] [facility] [address] [place] [phone] A, Unknown Practice [address] [place] [address] Social History Tobacco Use Types Packs/Day Years [...] How often do you attend chur or sabianism services? Never 04/14/2023 Do you belong to [...] Recorded Patient Health Questionnaire-2 Score 0 07/06/2023 [facility] - Occupational Stress Questionnaire Answer Date [...] slept in a half-way (including now)? No 04/14/2023 Comments No Sex [...] 4:00 PM EDT Procedure Visit [facility] [address] [place] [phone] Yo Galeas DO [address] [place] [address] 11/20/2025 8:30 AM EST Office Visit [facility] [address] [place] [address] Nelsy Harris APRN-OFFICE SECRETARY [address] [place] [address] documented as of this encounter Procedures Procedure Name Priority Date/Time Associated Diagnosis Comments ESOPHAGOSCOPY Routine 07/25/2023 3:25 PM EDT documented in this encounter Results * Esophagoscopy (07/25/2023 3:25 PM EDT) Anatomical Region Laterality Modality Endoscopy us Unknown Practice A ENDOSCOPY PROCEDURE ORDERABLE S Final Result documented in this encounter Visit Diagnoses Not on filedocumented in this encounter Care Teams Dial Lathe Operator Relationship Specialty Start Date End Date Eliceo Gómez DO [address] [place] [address] PCP - General Family Medicine 04/04/23 Eliceo Gómez DO [address] [place] [address] PCP - [facility] 05/06/2310/05 Beata Hernandez PA [address] [place] [address] Dietitian Nutrition 08/08/23 05/16/24 Juan Damico DO [address] [place] [address] Referring Physician Obstetrics and Gynecology 05/20/24 documented as of this encounter
--- OUTSIDE RECORDS SUMMARY | 2025-04-02 07:42 | XMS_ITS | Encounter Summary ---
Author Organization [facility] Address [address] [place] [address] Care Team Providers Care Medical Communication Specialist Name Role Phone Eliceo Gómez DO Primary Care Provider [phone] Eliceo Gómez DO Unavailable [phone] Juan Damico DO Unavailable [phone] Encounter Details Date Type Department Care Team (Late st Contact Info) Description 10/24/2024 Abstract [facility] [address] [facility] 230 [place] [phone] Eliceo Gómez DO [address] [facility] [address] [place] [address] Social History Tobacco Use Types Packs/Day Years [...] any clubs o r organizations such as zoroastrianism groups, unions, fraternal or athletic groups, or [...] Recorded Patient Health Questionnaire-2 Score 0 07/11/2024 [facility] - Occupational Stress Questionnaire Answer Date [...] place to sleep or slept in a halfway (including now)? No 10/25/2023 Housing Stability Vital Sign Answer Melecio e Recorded In the last 12 months, was t here a time when you were not able to pay the mortgage or rent on time? No 05/01/2024 In the past 12 months, how m any times have you moved where you were living? 1 05/01/2024 At any time in the past 12 m [facility], were you homeless or living in a halfway (including now)? No 05/01/2024 Comments No Sex [...] 4:00 PM EDT Procedure Visit [facility] [address] [place] [phone] Yo Galeas DO [address] Kar[address] [id number] 11/20/2025 8:30 AM EST Office Visit [facility] [address] [place] [phone] Nelsy Harris, VOCAL MUSIC TEACHER-BETTING AGENCY MANAGER [address] [place] [address] documented as of this encounter Visit Diagnoses Not on filedocumented in this encounter Care Teams Medical Communication Specialist Relationship Specialty Start Date End Date Eliceo Gómez DO [address] [place] [address] PCP - General Family Medicine 04/04/23 Eliceo Gómez DO [address] [place] [address] PCP - [facility] 05/06/2310/05 Juan Damico DO [address] [place] [address] Referring Physician Obstetrics and Gynecology 05/20/24 documented as of this encounter
--- OUTSIDE RECORDS SUMMARY | 2025-04-02 07:43 | XMS_ITS | Encounter Summary ---
Author Organization [employer] Address [id number] [address] [place] [address] Care Team Providers Care Roll Tester Name Role Phone Dalia Morales DO, George R Primary Care Provider + Encounter Details Date Type Department Care Team (Late st Contact Info) Description 07/11/2023 Telephone [facility] [address] [address] Cullen Dawkins MD [address] [place] [address] [address] [place] [address] Social History Tobacco Use Types Packs/Day Years [...] PHQ-2 Answer Date Recorded Total Score 0 01/26/2023 Childcare Answer Date Recorded Childcare Unknown 04/17/2019 [...] on file documented as of this encounter Miscellaneous Notes * Telephone Encounter - Cullen Dawkins MD - 07/11/2023 11:06 AM EDT Surgery Scheduling Request 07/11/23 Patient: Mary Leal : 1970 Surgical Procedure(s): Drug induced sleep endoscopy Anesthesia: MAC Surgery Time: 30 minutes Facility Preference: [facility] Post Op Destination: Outpatient When should patient follow up after surgery? 1-2 weeks Additional Comments: Yosef Horowitz documented in this encounter Plan of Treatment Not on file documented as of this encounter Visit Diagnoses Not on filedocumented in this encounter Additional Health Concerns Assessment Noted Time PHQ-9 Depression Total Score: 0 01/27/20 1:28 PM EDT documented as of this encounter Care Teams Roll Tester Relationship Specialty Start Date End Date Eliceo Gómez Jr., DO [address] [place] [address], [address] [address] PCP - General Family Medicine 12/11/19 Jenna Butler [address] Consulting Physician Behavioral Health 12/20/23 documented as of this encounter
--- OUTSIDE RECORDS SUMMARY | 2025-04-02 07:43 | XMS_ITS | Encounter Summary ---
Author Organization [facility] tem Address [id number] [address] [place] [address] Care Team Providers Care Warp Worker Name Role Phone Dalia Morales DO, George R Primary Care Provider + Reason for Visit * Reason Onset Date Comments Pt wants to schedule surgery 11/24/2023 Encounter Details Date Type Department Care Team ([facility] st Contact Info) Description 11/24/2023 Telephone [facility] - ENT [address] [place] [address], [address] [place] [phone] Cullen Dawkins MD [address] [place] [address] [address] [place] [address] Pt wants to schedule surgery Social History Tobacco Use Types Packs/Day Years [...] got money to buy more. Never True 10/23/2023 Within the past 12 months th e food we bought just didn't last and we didn't have money to get more. Never True 10/23/2023 Purpose - Life Answer Date Recorded Purpose and direction in life Unknown Comments No Sex and Gender Information Value Date Recorded Sex Assigned at Female 07/28/2020 6:39 PM EDT Legal Sex Female 12:08 PM EDT Gender Identity Female 07/28/2020 6:39 PM EDT Sexual Orientation Not on file documented as of this encounter Miscellaneous Notes * Telephone Encounter - Lupe Mcghee - 11/24/2023 9:13 AM EST Patient called 11/24/23. Patient wants to schedule surgery with Dr. Dawkins. documented in this encounter Plan of Treatment Not on file documented as of this encounter Visit Diagnoses Not on filedocumented in this encounter Additional Health Concerns Assessment Noted Time PHQ-9 Depression Total Score: 0 10/23/20 23 1:26 PM EST documented as of this encounter Care Teams Warp Worker Relationship Specialty Start Date End Date Eliceo Gómez Jr., [address] [place] [address], [address] [address] PCP - General Family Medicine 12/11/19 Jenna Butler [address] Consulting Physician Behavioral Health 12/20/23 documented as of this encounter
--- OUTSIDE RECORDS SUMMARY | 2025-04-02 07:43 | XMS_ITS | Encounter Summary ---
Author Organization [employer] Address [id number] [address] [place] [address] Care Team Providers Care Government Clerk Name Role Phone Stephonmame Morales Eliceo Braden Primary Care Provider + Reason for Visit * Reason Onset Date Comments Bonita BROOKS 01/30/2023 Encounter Details Date Type Department Care Team (Late st Contact Info) Description 01/30/2023 Telephone [facility]icians Neurology [address] [place] [address] Kim Acharya RN [facility] [place] Social History Tobacco Use Types Packs/Day Years [...] have Coronavirus / COVID-19? No / Unsure 01/26/2023 1:15 PM EDT documented as of this encounter Miscellaneous Notes * Telephone Encounter - Kim Acharya RN - 01/30/2023 8:18 AM EDT PA for [employer] started on CMM Art: [id number] faxed to plan , waiting a response documented in this encounter Plan of Treatment Not on file documented as of this encounter Visit Diagnoses Not on filedocumented in this encounter Additional Health Concerns Assessment Noted Time PHQ-9 Depression Total Score: 0 01/27/20 1:28 PM EDT documented as of this encounter Care Teams Government Clerk Relationship Specialty Start Date End Date Eliceo Gómez Jr., [address] [place] [address], [address] [place] [address] PCP - General Family Medicine 12/11/19 Jenna Butler [address] Consulting Physician Behavioral Health 12/20/23 documented as of this encounter
--- OUTSIDE RECORDS SUMMARY | 2025-04-02 07:43 | XMS_ITS | Encounter Summary ---
Author Organization [facility] Address [address] [place] [address] Care Team Providers Care Freight Flow Sales Leader Name Role Phone Eliceo Gómez DO Primary Care Provider [phone] Eliceo Gómez DO Unavailable [phone] Juan Damico DO Unavailable [phone] Encounter Details Date Type Department Care Team (Late st Contact Info) Description 06/22/2024 Clinisync Result Encounter [facility] External Department Unsolicited [...] How often do you attend chur or zoroastrian services? Never 05/01/2024 Do you belong to [...] Date Recorded Patient Health Questionnaire-2 Score 0 06/12/2024 [facility] of Occupat ional Health - Occupational Stress [...] time in the past 12 m [facility], were you homeless or living [...] 4:00 PM EDT Procedure Visit CHUYITA TOBIN [address] [place] [phone] Yo Galeas DO [address] [place] [address] 11/20/2025 8:30 AM EST Office Visit [facility] [address] [place] [address] Nelsy Harris, VACUUM SPINDLE SANDER-REGISTERED NURSE MATERNITY [address] [place] [address] documented as of this encounter Procedures Procedure Name Priority Date/Time Associated Diagnosis Comments XR FOOT RT MIN 3V 06/22/2024 12: 28 PM EDT documented in this encounter Results * XR FOOT RT MIN 3V (06/22/2024 12:28 PM EDT) Anatomical Region Laterality Modality Other 06/22/2024 12:2 8 PM EDT Narrative 06/22/2024 12:30 PM EDT [address] [address] XRay Report Signed Patient: MARY FUENTES MR#: [id number] : 1970 Acct:[id number] Age/Sex: 54 / F ADM Date: 06/19/24 Loc: EC Attending Dr: Sade Felix D.P.M. Ordering Physician: Sade Felix D.P.M. Date of Service: 06/19/24 Procedure(s): XR foot RT min 3V Accession Number(s): [id number] cc: Sade Felix D.P.M.; Isatu GÓMEZ [address] [address] Patient Name: MARY FUENTES MRN: [id number] date: 1970 Sex: F Assigned Patient Location: Current Patient Location: [facility] Accession/Order Number: [id number] Exam Date: 06/19/2024 13:30 Report Date: 06/22/2024 12:28 At the request of: SADE FELIX Procedure: XR foot RT min 3V PROCEDURE: XR foot RT min 3V COMPARISON: 05/27/2024 HISTORY: RIGHT FOOT PAIN FINDINGS: BONES:Stable postsurgical changes with anterior and posterior calcaneal osteotomy. Talonavicular and subtalar fusion. Transverse osteotomy with wedged spacer medial cuneiform. Remote osteotomy and screw placement at of the first metatarsal. SOFT TISSUES:Negative. No visible soft tissue swelling. EFFUSION:None visible. OTHER: Negative. XR/XR foot RT min 3V IMPRESSION: Stable postsurgical changes Electronically authenticated by: NICKI DACOSTA Date: 06/22/2024 12:28 Dictated By: Nicki Dacosta M.D. Signed By: 06/22/24 1230 DD/ 1228 TD/TT: Duty Engineer: Procedure Note Radiology, Radiologist, MD - 06/22/2024 [place] [address] XRay Report Signed Patient: MARY FUENTES DMR#: [id number] : 1970Acct:[id number] Age/Sex: 54 / FADM Date: 06/19/24 Loc: EC Attending Dr: Sade Felix D.P.M. Ordering Physician: Sade Felix D.P.M. Date of Service: 06/19/24 Procedure(s): XR foot RT min 3V Accession Number(s): [id number] cc: Sade Felix D.P.M.; Isatu GÓMEZ [place] [id number] Patient Name: MARY FUENTES MRN: [id number] date: 1970 Sex: F Assigned Patient Location: Current Patient Location: [facility] Accession/Order Number: [id number] Exam Date: 06/19/2024 13:30 Report Date: 06/22/2024 12:28 At the request of: SADE FELIX Procedure: XR foot RT min 3V PROCEDURE: XR foot RT min 3V COMPARISON: 05/27/2024 HISTORY: RIGHT FOOT PAIN FINDINGS: BONES:Stable postsurgical changes with anterior and posterior calcaneal osteotomy. Talonavicular and subtalar fusion. Transverse osteotomy withwedged spacer medial cuneiform. Remote osteotomy and screw placement at of thefirst metatarsal. SOFT TISSUES:Negative. No visible soft tissue swelling. EFFUSION:None visible. OTHER: Negative. XR/XR foot RT min 3V IMPRESSION: Stable postsurgical changes Electronically authenticated by: NICKI DACOSTA Date: 06/22/2024 12:28 Dictated By: Nicki Dacosta M.D. Signed By:06/22/24 1230 DD/ 1228 TD/TT: Duty Engineer: us Generic External Data Provider [facility] Final Result documented in this encounter Visit Diagnoses Not on filedocumented in this encounter Care Teams Freight Flow Sales Leader Relationship Specialty Start Date End Date Eliceo Gómez DO [address] [place] [address] PCP - General Family Medicine 04/04/23 Eliceo Gómez DO [address] [place] [address] PCP - [facility] 05/06/2310/05 Juan Damico DO [address] [place] [address] Referring Physician Obstetrics and Gynecology 05/20/24 documented as of this encounter
--- OUTSIDE RECORDS SUMMARY | 2025-04-02 07:43 | XMS_ITS | Encounter Summary ---
Author Organization [facility] Address [address] [facility] [place] [address] Care Team Providers Care Paper Hanger Name Role Phone Eliceo Gómez DO Primary Care Provider [phone] Eliceo Gómez DO Unavailable [phone] Juan Damico DO Unavailable [phone] Encounter Details Date Type Department Care Team (Late st Contact Info) Description 07/10/2024 Abstract [facility] [address] [facility] [address] [place] [address] Eliceo Gómez DO [address] [facility] [address] [place] [address] Social History Tobacco Use Types Packs/Day Years [...] any clubs o r organizations such as mandaen groups, unions, fraternal or athletic groups, or [...] Recorded Patient Health Questionnaire-2 Score 0 07/11/2024 [facility] of Occupat ionin Health - Occupational Stress Questionnaire Answer Date [...] place to sleep or slept in a prison (including now)? No 10/25/2023 Housing Stability Vital [...] time in the past 12 m [facility], were you homeless or living in a prison (including now)? No 05/01/2024 Comments No Sex and Gender Information Value Date Recorded Sex Assigned at Female 03/13/2023 7:50 AM EDT Legal Sex Female 7:14 PM EDT Gender Identity Female 01/18/2023 7:14 PM EDT Sexual Orientation Not on file documented as of this encounter Functional Status * Over the past 2 weeks, how often have you been bothered by any of the following problems? Question Answer Date of Assessment Author Little interest or pleasure in doing things Not at all 07/11/2024 9:44 AM EDT Janeth, Log an, COUNTY DIRECTOR WELFARE Feeling down, depressed, or hopeless Not at all 07/11/2024 9:44 AM EDT Mikala Fowler, RIKI Patient Health Questionnaire-2 Score 0 07/11/2024 9:44 AM EDT Nicole Fowler LPN documented as of this encounter Plan of Treatment Upcoming Encounters Date Type Department Care Team (Late st Contact Info) Description 04/30/2025 4:00 PM EDT Procedure Visit CHUYITA CRISTA [address] [place] [address] Yo Galeas DO [address] [place] [address] 11/20/2025 8:30 AM EST Office Visit [facility] [address] [place] [phone] Nelsy Harris APRN-LINT CLEANER [address] [place] [address] documented as of this encounter Visit Diagnoses Not on filedocumented in this encounter Care Teams Paper Hanger Relationship Specialty Start Date End Date Eliceo Gómez DO [address] [place] [address] PCP - General Family Medicine 04/04/23 Eliceo Gómez DO [address] [place] [address] PCP - [facility] 05/06/2310/05 Juan Damico DO [address] [place] [address] Referring Physician Obstetrics and Gynecology 05/20/24 documented as of this encounter
--- OUTSIDE RECORDS SUMMARY | 2025-04-02 07:43 | XMS_ITS | Encounter Summary ---
Author Organization [facility] Address [address] [facility] [place] [address] Care Team Providers Care Automotive Parts Clerk Name Role Phone Eliceo Gómez DO Primary Care Provider [phone] Eliceo Gómez DO Unavailable [phone] Juan Damico DO Unavailable [phone] Encounter Details Date Type Department Care Team (Late st Contact Info) Description 07/10/2024 Abstract [facility] [address] [facility] 230 [place] [address] Eliceo Gómez DO [address] [facility] 230 [place] [address] Social History Tobacco Use Types Packs/Day Years [...] How often do you attend chur or sabianist services? Never 05/01/2024 Do you belong to any clubs o r organizations such as nondenominational groups, unions, fraternal or athletic groups, or [...] Recorded Patient Health Questionnaire-2 Score 0 07/11/2024 [facility] of Occupat ionsc Health - Occupational Stress [...] place to sleep or slept in a fci (including now)? No 10/25/2023 Housing Stability Vital Sign Answer Melecio e Recorded In the last 12 months, was t here a time when you were not able to pay the mortgage or rent on time? No 05/01/2024 In the past 12 months, how m any times have you moved where you were living? 1 05/01/2024 At any time in the past 12 m [facility], were you homeless or living in a fci (including now)? No 05/01/2024 Comments No Sex [...] 07/11/2024 9:44 AM EDT Janeth, Log an, QUALITY ASSURANCE MONITOR Feeling down, depressed, or hopeless Not at all 07/11/2024 9:44 AM EDT Mikala Fowler, RIKI Patient Health Questionnaire-2 Score 0 07/11/2024 9:44 AM EDT Nicole Fowler LPN documented as of this encounter Plan of Treatment Upcoming Encounters Date Type Department Care Team (Late st Contact Info) Description 04/30/2025 4:00 PM EDT Procedure Visit CHUYITA CRISTA [address] [place] [address] Yo Galeas DO [address] [place] [address] 11/20/2025 8:30 AM EST Office Visit [facility] [address] [place] [phone] Nelsy Harris APRN-DIFFUSION FURNACE OPERATOR [address] [place] [address] documented as of this encounter Visit Diagnoses Not on filedocumented in this encounter Care Teams Automotive Parts Clerk Relationship Specialty Start Date End Date Eliceo Gómez DO [address] [place] [address] PCP - General Family Medicine 04/04/23 Eliceo Gómez DO [address] [place] [address] PCP - [facility] 05/06/2310/05 Juan Damico DO [address] [place] [address] Referring Physician Obstetrics and Gynecology 05/20/24 documented as of this encounter
--- OUTSIDE RECORDS SUMMARY | 2025-04-02 07:43 | XMS_ITS | Encounter Summary ---
Author Organization [facility] Address [address] [facility] [place] [address] Care Team Providers Care Stablehand Name Role Phone Eliceo Gómez DO Primary Care Provider [phone] Eliceo Gómez DO Unavailable [phone] Beata Hernandez Unavailable Juan Damico DO Unavailable [phone] Encounter Details Date Type Department Care Team (Late st Contact Info) Description 05/18/2023 Orders Only [facility] [address] [facility] [address] [place] [phone] Provider, MD Pilo [address] [place] [address] Social History Tobacco Use Types Packs/Day Years [...] often do you attend chur ch or islam services? Never 04/14/2023 Do you belong to [...] Date Recorded Patient Health Questionnaire-2 Score 0 04/06/2023 [facility] of Occupat ional Health - Occupational Stress [...] slept in a assisted (including now)? No 04/14/2023 Comments No Sex [...] suspected to have Coronavirus/COVID-19? No / Unsure 05/17/2023 1:05 PM EDT documented as of this encounter Plan of Treatment Upcoming Encounters Date Type Department Care Team (Late st Contact Info) Description 04/30/2025 4:00 PM EDT Procedure Visit CHUYITA TOBIN [address] [place] [phone] Yo Galeas DO [address] [place] [address] 11/20/2025 8:30 AM EST Office Visit [facility] [address] [place] [phone] Nelsy Harris APRN-ASSISTANT ACCOUNT MANAGER [address] [place] [address] documented as of this encounter Procedures Procedure Name Priority Date/Time Associated Diagnosis Comments XR CHEST 1 VIEW Routine 05/18/2023 9:[address] FOOT RIGHT W CONTRAST [id number] Routine 05/18/2023 9:07 AM EDT XR FOOT 3+ VIEWS RIGHT Routine 05/18/2023 8:25 AM EDT documented in this encounter Results * XR chest 1 view (05/18/2023 9:19 AM EDT) Anatomical Region Laterality Modality Chest Radiographic Ira ging Historical Provider IMG XR PROCEDURES Final R esult * CT FOOT RIGHT W CONTRAST [id number] (05/18/2023 9:07 AM EDT) Anatomical Region Laterality Modality Radiographic Ira ging Historical Provider IMG XR PROCEDURES Final R esult * XR foot 3+ views right (05/18/2023 8:25 AM EDT) Anatomical Region Laterality Modality Lower Extremities, Foot Right Radiogra phic Imaging Historical Provider IMG XR PROCEDURES Final R esult documented in this encounter Visit Diagnoses Not on filedocumented in this encounter Care Teams Stablehand Relationship Specialty Start Date End Date Eliceo Gómez DO [address] [place] [address] PCP - General Family Medicine 04/04/23 Eliceo Gómez DO [address] [place] [address] PCP - [facility] 05/06/2310/05 Beata Hernandez PA [address] [place] [address] Dietitian Nutrition 08/08/23 05/16/24 Juan Damico DO [address] [place] [address] Referring Physician Obstetrics and Gynecology 05/20/24 documented as of this encounter
--- OUTSIDE RECORDS SUMMARY | 2025-04-02 07:43 | XMS_ITS | Encounter Summary ---
Author Organization [employer] Address [facility] [id number] [address] [place] [address] Care Team Providers Care Spa Associate Name Role Phone Dalia Morales DO, George R Primary Care Provider + Encounter Details Date Type Department Care Team (Late st Contact Info) Description 12/26/2023 [facility]phone [facility] [address] [place] [address] April Mccarty Social History Tobacco Use Types Packs/Day Years [...] encounter Miscellaneous Notes * Telephone Encounter - April Mccarty - 12/26/2023 12:28 PM EST Patient contacted our office wanting to know if she is getting the inspire implant on 01/02/2024 and also getting a bladder stimulator on 01/26/2024 is she allowed to have both procedures. Patient would like a call back from RN at this time. Please advise. * Telephone Encounter - Kim Acharya RN - 12/26/2023 12:28 PM EST Patient also sent [employer] message regarding the matter. RN sent on to provider to comment * Telephone Encounter - Demi Machado - 12/26/2023 12:28 PM EST Received call today 02/26/24 8:28 from patient who's requesting a call back. She said that she got her Inspire on 01/02/24 and didn't get it activated until around 02/09/24. She said she doesn't know if she hit the wrong button, but it's turned up too high and needs it turned down. Please call back and advise, callback#: [phone]. * Telephone Encounter - Pauline Christensen MD - 12/26/2023 12:28 PM EST I will have Yosef the Inspire Rep call her. Thank you documented in this encounter Plan of Treatment Not on file documented as of this encounter Visit Diagnoses Not on filedocumented in this encounter Additional Health Concerns Assessment Noted Time PHQ-9 Depression Total Score: 0 10/23/20 23 1:26 PM EST documented as of this encounter Care Teams Spa Associate Relationship Specialty Start Date End Date Eliceo Gómez Jr., [address] [facility], [address], [place] [address] PCP - General Family Medicine 12/11/19 Jenna Butler [address] Consulting Physician Behavioral Health 12/20/23 documented as of this encounter
--- OUTSIDE RECORDS SUMMARY | 2025-04-02 07:43 | XMS_ITS | Encounter Summary ---
Author Organization [facility] Address [address] [place] [address] Care Team Providers Care Company Accountant Name Role Phone Eliceo Gómez DO Primary Care Provider Eliceo Gómez DO Unavailable [phone] Beata Hernandez Unavailable Juan Damico DO Unavailable [phone] Encounter Details Date Type Department Care Team (Late st Contact Info) Description 05/22/2023 Orders Only [facility] [address] [facility] [address] [place] [address] Eliceo Gómez, DO [address] [place] [address] Social History Tobacco Use Types Packs/Day Years [...] you attend chur or episcopal services? Never 04/14/2023 Do you belong to any clubs o r organizations such as confucianism groups, unions, fraternal or athletic groups, or [...] Recorded Patient Health Questionnaire-2 Score 0 04/06/2023 [facility] of Occupat ional Health - [...] 4:00 PM EDT Procedure Visit CHUYITA CRISTA [address] [place] [address] Yo Galeas DO [address] [place] [address] 11/20/2025 8:30 AM EST Office Visit [facility] [address] [place] [phone] Nelsy Harris APRN-MORTGAGE LOAN PROCESSOR [address] [place] [address] documented as of this encounter Procedures Procedure Name Priority Date/Time Associated Diagnosis Comments VASC US LOWER EXTREMITY VENOUS DUPLEX LEFT Routine 05/18/2023 11:25 AM EDT XR FOOT 3+ VIEWS RIGHT Routine 05/18/2023 11:13 AM EDT documented in this encounter Results * Vascular US lower extremity venous duplex left (05/18/2023 11:25 AM EDT) Anatomical Region Laterality Modality Lower Extremities Ultrasound us Eliceo Gómez DO IMG US PROCEDURES Final Resul t * XR FOOT 3+ VIEWS RIGHT (05/18/2023 11:13 AM EDT) Anatomical Region Laterality Modality Radiographic Ira ging us Eliceo Gómez DO IMG XR PROCEDURES Final Resul t documented in this encounter Visit Diagnoses Not on filedocumented in this encounter Care Teams Company Accountant Relationship Specialty Start Date End Date Eliceo Gómez DO [address] [place] [address] PCP - General Family Medicine 04/04/23 Eliceo Gómez DO [address] [place] [address] PCP - [facility] 05/06/2310/05 Beata Hernandez PA [address] [place] [address] Dietitian Nutrition 08/08/23 05/16/24 Juan Damico DO [address] [place] [address] Referring Physician Obstetrics and Gynecology 05/20/24 documented as of this encounter
--- OUTSIDE RECORDS SUMMARY | 2025-04-02 07:43 | XMS_ITS | Encounter Summary ---
Author Organization [facility] Address [address] [facility] [place] [address] Care Team Providers Care Veneer Marker Name Role Phone Eliceo Gómez DO Primary Care Provider [phone] Eliceo Gómez DO Unavailable [phone] Juan Damico DO Unavailable [phone] Encounter Details Date Type Department Care Team (Late st Contact Info) Description 05/27/2024 Abstract [facility] [address] [facility] 230 [place] [address] Eliceo Gómez DO [address] [facility] [address] [place] [address] Social History Tobacco Use Types Packs/Day Years [...] attend chur or jehovah's witness services? Never 05/01/2024 Do you belong to any clubs o r organizations such as oriental orthodox groups, unions, fraternal or athletic groups, or school groups? No 05/01/2024 How often do you attend meet ings of the clubs or organizations you belong to? Never 05/01/2024 Are you , , di vorced, , never , or living with a partner? 05/01/2024 AUDIT-C Answer Date Recorded Q1: How often do you have a drink containing alcohol? Never 05/01/2024 Q2: How many drinks containi ng alcohol do you have on a typical day when you are drinking? Patient does not drink Q3: How often do you have si x or more drinks on one occasion? Never 05/01/2024 Overall Financial Resource Strain (CARDIA) Answe r Date Recorded How hard is it for you to pa y for the very basics like food, housing, medical care, and heating? Somewhat hard 05/01/2024 PHQ-2 Answer Date Recorded Patient Health Questionnaire-2 Score 0 05/14/2024 [facility] of Occupat ionsc Health - Occupational Stress [...] time in the past 12 m [facility], were you homeless or living in a [...] Procedure Visit CHUYITA TOBIN [address] [place] [address] Yo Galeas DO [address] [facility] 11/20/2025 8:30 AM EST Office Visit [facility] [address] [place] [phone] Nelsy Harris, TOBACCO CUTTER-ASSISTANT PROFESSOR SCULPTURE [address] [place] [address] documented as of this encounter Visit Diagnoses Not on filedocumented in this encounter Care Teams Veneer Marker Relationship Specialty Start Date End Date Eliceo Gómez DO [address] [place] [address] PCP - General Family Medicine 04/04/23 Eliceo Gómez DO [address] [place] [address] PCP - [facility] 05/06/2310/05 Juan Damico DO [address] [place] [address] Referring Physician Obstetrics and Gynecology 05/20/24 documented as of this encounter
--- OUTSIDE RECORDS SUMMARY | 2025-04-02 07:43 | XMS_ITS | Clinical Summary ---
Author Organization [facility] Address [address] [place] [address] Care Team Providers Care Fleece Tier Name Role Phone Eliceo Gómez DO Primary Care Provider [phone] Eliceo Gómez DO Unavailable [phone] Juan Damico DO Unavailable [phone] Allergies Active Allergy Reactions Criticality Noted Date Comments Poison Brenda Extract Rash Low 04/06/2023 Risperidone 04/22/2019 Other Reaction(s): breast discharge Medications Daridorexant HCl (Quviviq) 50 MG tabletIndications :Insomnia Take 50 mg by mouth at bedtime Active cholecalciferol (Vitamin D-3) 125 MCG (5000 UT) capsule Take 125 mcg by mouth Daily 4 Active L-Theanine 200 MG capsule Take 1 capsule by mouth Daily Active estradiol (Estrace) 1 MG tabletIndications :Night sweats Take 1 tablet (1 mg) by mouth Daily 90 tablet 3 4 09/04/20 25 Active colestipol (Colestid) 1 g tablet Take 1 g by mouth in the morning and 1 g in the evening. 4 Active Multiple Vitamin (Daily-Elisa Multivitamin) tablet Take 1 tablet by mouth Daily 4 Active albuterol HFA 90 mcg/act inhalerIndication s:Mild intermittent asthma, unspecified whether complicated (CMS/HCC) Inhale 2 puffs every 4 (four) hours if needed for wheezing 18 g 5 Active estradiol (Estrace) 0.1 MG/GM vaginal creamIndications: Hormone replacement therapy,Dyspareun ia in female Apply 0.5g vaginally twice weekly. 42.5 g 1 5 Active atenolol (Tenormin) 50 MG tabletIndications :Hypertension, unspecified type (CMS/HCC) Take 1 tablet (50 mg) by mouth Daily 90 tablet 1 5 05/26/20 25 Active triamcinolone (Kenalog) 0.1 % creamIndications: Erythema Apply topically 2 (two) times a day 45 g 1 5 Active ARIPiprazole ER (Abilify) 400 MG injection Inject 400 mg into the shoulder, thigh, or buttocks 1 (one) time Active cyproheptadine (Periactin) 4 MG tablet Take 4 mg by mouth as needed at bedtime 5 Active omeprazole (PriLOSEC) [address] capsuleIndication s:Gastro-esophage al reflux disease without esophagitis Take 1 capsule (40 mg) by mouth in the morning. 90 capsule 3 5 Active losartan (Cozaar) 50 MG tabletIndications :Hypertension, unspecified type (CMS/HCC) Take 1 tablet (50 mg) by mouth Daily 30 tablet 5 5 Active rOPINIRole (Requip) 2 MG tabletIndications :Restless legs syndrome Take 1 tablet (2 mg) by mouth at bedtime 5 Active fluticasone (Flonase) 50 MCG/ACT nasal sprayIndications: Disorder of right eustachian tube Administer 2 sprays into each nostril Daily Shake gently. Before first use, prime pump. After use, clean tip and replace cap. 16 g 11 5 01/21/20 26 Active mirtazapine (Remeron) 15 MG tablet 5 Active meloxicam (Mobic) 15 MG tablet TAKE 1 TABLET BY MOUTH EVERY DAY FOR 30 DAYS 5 Active lisdexamfetamine (Vyvanse) 60 MG capsule 5 Active Trelegy Ellipta 100-62.5-25 MCG/ACT aerosol powderIndications :Mild intermittent asthma, unspecified whether complicated (CMS/HCC) INHALE 1 PUFF BY MOUTH DAILY 60 each 1 5 Active rOPINIRole (Requip) 1 MG tabletIndications :Restless legs syndrome Take 1 tablet (1 mg) by mouth in the morning and 1 tablet (1 mg) before bedtime. 60 tablet 5 5 Active Active Problems Problem Noted Date Diagnosed Date Chronic migraine without aur a without status migrainosus, not intractable 09/26/2024 Belching 11/30/2023 Pain due to internal orthope dic prosthetic devices, implants and grafts, initial encounter 11/09/2023 Cough 10/02/2023 Overview (10/24/2023): Onset Date: 20231002 Wheezing 10/02/2023 Overview (10/24/2023): Onset Date: 20231002 Weight loss 09/08/2023 Heat intolerance 09/08/2023 Presence of functional implant, unspecified 08/06 History of stress fracture 07/06/2023 Osteoarthritis of right foot 05/23/2023 Presence of right artificial ankle joint 023 Primary localized osteoarthrosis of ankle and fo ot 05/23/2023 Arthritis 04/06/2023 Bipolar 1 disorder 04/06/2023 Overview (04/06/2023): Last Assessment & Plan: Assessment: Pt. reports mood is stable with medication. Reports borderline personality Follows with psychiatry and counseling Chronic interstitial cystitis 04/06/2023 Incontinence 04/06/2023 Overactive bladder 04/06/2023 RUQ pain 04/06/2023 Abnormal mammogram 04/04/2023 ADD (attention deficit disorder) without hyperac tivity 04/04/2023 Allergic rhinitis 04/04/2023 Anxiety 04/04/2023 Asthma 04/04/2023 Atopic dermatitis 04/04/2023 Basal cell carcinoma (BCC) of chest 04/04/2023 Bipolar affective disorder, most recent episode mixed 04/04/2023 Degenerative disc disease, cervical 04/04/2023 Facet arthritis of cervical region 04/04/2023 Gastro-esophageal reflux disease without esophag itis 04/04/2023 Gastroparesis 04/04/2023 Hot flashes due to menopause 04/04/2023 Hyperlipidemia 04/04/2023 Hypertension 04/04/2023 Insomnia 04/04/2023 Mood swing 04/04/2023 Restless legs syndrome 04/04/2023 Tarsal tunnel syndrome 04/04/2023 Tension headache 04/04/2023 Vitamin D deficiency 04/04/2023 Arthritis of left foot 01/06/2023 Nausea 11/30/2022 CHUCKIE (obstructive sleep apnea) 11/21/2022 Overview (04/06/2023): Last Assessment & Plan: Assessment: is not currently using CPAP - could not tolerate settings and needs a titration assessment B12 deficiency 10/23/2022 Migraine 10/23/2022 JOLEEN (generalized anxiety disorder) 09/13/2022 Major depressive disorder, recurrent, moderate 1 11/13/2021 Chronic pelvic pain in female 08/01/2022 Dysuria 08/01/2022 Headache 08/01/2022 History of 2019 novel coronavirus disease (COVID -19) 08/01/2022 Overview (10/24/2023): Last Assessment & Plan: Assessment: patient reports she had COVID-19 in mid-August 2021 and October 2021. Reports she did takes Prednisone x 5 days on August 30, but denies requiring hospitalization. Denies residual SOB or cough Increased frequency of urination 08/01/2022 Poor urinary stream 08/01/2022 Stress incontinence in female 08/01/2022 Urinary urgency 08/01/2022 Chronic idiopathic constipation 03/15/2022 Follow-up examination after colorectal surgery 0 01/18/2022 Genitourinary syndrome of menopause 08/04/2021 Sleep disturbance 08/04/2021 Lingual tonsil hypertrophy 05/18/2021 Other fatigue 04/01/2021 Chronic sinusitis 03/12/2021 S/P tonsillectomy 02/18/2021 S/P nasal septoplasty 02/18/2021 Chronic cluster headache, not intractable 2020 Chronic tonsillitis 01/11/2021 Nasal congestion 01/11/2021 Daytime hypersomnia 12/07/2020 Arthritis of right acromioclavicular joint 09/29 Impingement syndrome of right shoulder 0 Partial nontraumatic rupture of right rotator cu ff 09/29/2020 Unspecified inflammatory spondylopathy, cervical region 07/30/2018 Resolved Problems Problem Noted Date Diagnosed Date Resolved Date Hyperglycemia 04/06/2023 10/03/2023 Colostomy present 04/04/2023 09/07/2023 Dysphagia 04/04/2023 01/23/2024 Obesity (BMI 30-39.9) 04/04/20232022 Sciatica 04/04/2023 07/05/2023 Lack of coordination 01/18/2022 023 Pelvic floor dysfunction 12/24/2021 Encounters Date Type Department Care Team Description 03/17/2025 Abstract [facility] [address] [place] [address] Eliceo Gómez, DO 03/06/2025 Travel 03/06/2025 Abstract [facility] [address] [place] [address] Eliceo Gómez, DO 02/25/2025 Telephone [facility] [address] [place] [address] Eliceo Gómez, DO right ear 02/24/2025 Telephone [facility] [address] [place] [address] Juan Damico, DO 02/20/2025 Telephone [facility] [address] [place] [address] Eliceo Gómez, DO 02/06/2025 Telephone [facility] [address] [place] [address] Bernadine Hilton MA medication update 02/05/2025 Refill [facility] [address] [place] [address] Eliceo Gómez DO Mild intermittent asthma, unspecified whether complicated (CMS/HCC) 01/30/2025 Abstract [facility] [address] [place] [address] Eliceo Gómez DO 01/20/2025 2:40 PM EDT Office Visit [facility] [address] [place] [address] Benedicto Salas PA Routine general medical examination at health care facility (Primary Dx) 01/20/2025 1:00 PM EDT Office Visit [facility] [address] [place] [address] Eliceo Gómez DO Disorder of right eustachian tube (Primary Dx); Bipolar disorder, current episode depressed, moderate (CMS/HCC); Gastro-esophageal reflux disease without esophagitis; Hypertension, unspecified type (CMS/HCC); Mild intermittent asthma, unspecified whether complicated (CMS/HCC); Restless legs syndrome 01/20/2025 Bamboo flowsheet [facility] [address] [place] [address] Eliceo Gómez DO 01/20/2025 Travel 01/13/2025 Travel 01/03/2025 Clinisync Result Encounter [facility] External Department Unsolicited Provider, Generic External Data from Last 3 Months Immunizations Immunization Administration Dates Next Due Hep B, adult 05/12/2008,04/11/2008 HepB-CpG 05/21/2024 Influenza, Injectable, MDCK, preservative free 07/01/2024 Influenza, injectable, MDCK, preservative free, quadrivalent 12/21/2023 Influenza, injectable, quadr ivalent, preservative free 08/17/2022,09/02/2020,08/06/2020,08/20 Influenza, seasonal, injecta ble, preservative free 07/15/2018 Meningococcal MCV4O 05/21/2024 Pfizer Purple Cap SARS-CoV-2 Vaccination 05/10/2021,04/19/2021 Tdap 06/22/2020 Zoster, Recombinant 04/05/2024 Family History Medical History Relation Name Comments Atrial fibrillation Father Dad Coronary artery disease Father Dad Heart failure Father Dad Hypertension Father Dad Alzheimer's disease Mother Joanna Hypertension Mother Joanna Relation Name Status Comments Father Dad Mother Joanna Social History Tobacco Use Types Packs/Day Years Used Date Smoking Tobacco: Never Smokeless Tobacco: Never Tobacco Cessation:Counseling Given: Yes Alcohol Use Standard Drinks/Week Comments Never 0 [...] 05/01/2024 How often do you attend chur ch or episcopal services? Never 05/01/2024 Do you [...] Recorded Patient Health Questionnaire-2 Score 0 01/20/2025 [facility] - Occupational Stress [...] Sign Reading Time Taken Comments Blood Pressure 138/88 01/20/2025 1:17 PM EDT Pulse 82 01/20/2025 1:17 PM EDT Temperature 36.2 C (97.1 F) 01/20/2025 1:17 PM EDT Respiratory Rate - - Oxygen Saturation 98% 01/20/2025 1:17 PM EDT Inhaled Oxygen Concentration - - Weight 73.5 kg (162 lb) 01/20/2025 1:17 PM EDT Height 162.6 cm (5' 4 ) 01/20/2025 1:17 PM EDT Body Mass Index 27.81 01/20/2025 1:17 PM EDT Plan of Treatment Upcoming Encounters Date Type Department Care Team (Late st Contact Info) Description 04/30/2025 4:00 PM EDT Procedure Visit [facility] [address] [place] [address] Yo Galeas DO [address] [place] [address] 11/20/2025 8:30 AM EST Office Visit [facility] [address] [place] [address] Nelsy Harris APRN-COMMERCIAL INSULATOR [address] [place] [address] Health Maintenance Due Date Last Done Comments Mammogram 10/31/2024 10/31/2023, 1101/2022, 09/14/2022, Additional history exists Medicare Annual Wellness (AWV) 01/20/2026 0 01/20/2025, 01/20/2025, 03/14/2024, Additional history exists Pap Smear Discontinued 10/27/1998 FOBT Discontinued 03/13/2020 Sigmoidoscopy Discontinued 12/05/2022 Colonoscopy Discontinued 07/25/2023, 07/07, 07/25/2023, Additional history exists Colorectal Cancer Screening Discontinued Cervical Cancer Screening Discontinued HPV/Cotest Discontinued 06/12/2024 Influenza Vaccine Discontinued 07/01/2024, , 08/17/2022, Additional history exists CT Colonography Discontinued FIT-DNA Discontinued FIT Discontinued Procedures Procedure Name Priority Date/Time Associated Diagnosis Comments XR FOOT RT MIN 3V 01/03/2025 12: 21 PM EST THINPREP IMAGING PAP W/REFL HPV MRNA E6/E7 Routine 06/12/2024 12:00 AM EDT Encounter for Papanicolaou smear of vagina BI MAMMOGRAM SCREENING TOMOSYNTHESIS BILATERAL Routine 10/31/2023 1:06 PM EST Encounter for screening mammogram for malignant neoplasm of breast COLONOSCOPY Routine 03/24/2020 OCC BLD IMMUNOASSAY Routine 03/13/2020 from Last 3 Months or Most Recently Relevant to Health Maintenance Results * XR FOOT RT MIN 3V (01/03/2025 12:21 PM EST) Anatomical Region Laterality Modality Other 01/03/2025 12:2 1 PM EST Narrative 01/03/2025 12:23 PM EST [address] [address] XRay Report Signed Patient: MARY LEAL MR#: [id number] : 1970 Acct:[id number] Age/Sex: 54 / F ADM Date: 01/03/25 Loc: EC Attending Dr: Sade Felix D.P.M. Ordering Physician: Sade Felix D.P.M. Date of Service: 01/03/25 Procedure(s): XR foot RT min 3V Accession Number(s): [id number] cc: Sade Felix D.P.M.; Isatu GÓMEZ The [place] [id number] Patient Name: MARY LEAL MRN: [facility]:[id number] date: 1970 Sex: F Assigned Patient Location: Current Patient Location: Accession/Order Number: [id number] Exam Date: 01/03/2025 12:17 Report Date: 01/03/2025 [...] Makenna Pathak M.D.01/03/2025 12:21 PM Dictation Location: [place] [address] Electronically authenticated by: [id number] Y Date: 01/03/2025 12:21 Dictated By: Makenna Pathak M.D. Signed By: 01/03/25 1223 DD/ 1221 TD/TT: Talkback Host: Procedure Note Radiology, Radiologist, - 01/03/[address] [address] XRay Report Signed Patient: MARY LEAL DMR#: [id number] : 1970Acct:[id number] Age/Sex: 54 / FADM Date: 01/03/25 Loc: EC Attending Dr: Sade Felix D.P.M. Ordering Physician: Sade Felix D.P.M. Date of Service: 01/03/25 Procedure(s): XR foot RT min 3V Accession Number(s): [id number] cc: Sade Felix D.P.M.; Isatu GÓMEZ [place] [id number] Patient Name: MARY LEAL MRN: [id number] date: 1970 Sex: F Assigned Patient Location: Current Patient Location: EC Accession/Order Number: [id number] Exam Date: 01/03/2025 12:17 Report Date: 01/03/2025 12:21 At the request of: SADE FELIX DPDirk Procedure: XR foot RT min 3V RIGHT FOOT - 4 views CLINICAL DATA: Right foot pain. Previous surgery. COMPARISON: 10/01/2024 AP, lateral, oblique and tangential calcaneal views were obtained. Thereis redemonstration of multiple screws involving the talus, calcaneus and navicular. There is prior calcaneal osteotomy. Hardware is also againseen head of the first metatarsal and at the first cuneiform. There is nointerval change. There is no developing fracture or dislocation. There are no significant soft tissue abnormalities. XR/XR foot RT min 3V IMPRESSION: STABLE APPEARANCE OF THE FOOT Impression dictated by: Makenna Pathak M.D.01/03/2025 12:21 PM Dictation Location: [place] [address] Electronically authenticated by: [id number] Y Date: 2:21 Dictated By: Makenna Pathak M.D. Signed By:01/03/25 1223 DD/ 1221 TD/TT: Talkback Host: us Generic External Data Provider [facility] Final Result * THINPREP IMAGING PAP W/REFL HPV MRNA E6/E7 (06/12/2024 12:00 AM EDT) CLINICAL INFORMATION [facility] Comment:HRT LMP [facility] Comment:SHARON FRIEDMAN 2014 PREV. PAP [facility] Comment:NEG PREV. BX [facility] Comment:None given SOURCE [facility] Comment:None given STATEMENT OF ADEQUACY [facility] Comment:SATISFACTORY FOR COLEMAN LUATION INTERPRETATION/RESUL T [facility] Comment: Cytology Results: Negative for intraepithelial lesion or malignancy. COMMENT [facility] Comment: This Pap test has been evaluated with computer assisted technology. SDC TEACHER [facility] Comment: EMP, CT(ASCP) CT screening location: [facility], [address] [place] [address]. (ALWAYS MESSAGE) [facility] Comment: EXPLANATORY NOTE: The Pap is a screening test for cervical cancer. It is not a diagnostic test and is subject to false negative and false positive results. It is most reliable when a satisfactory sample, regularly obtained, is submitted with relevant clinical findings and history, and when the Pap result is evaluated along with historic and current clinical information. Swab Vaginal structure / Unknown 06/12/2024 06/13/2024 2:57 AM EDT Narrative Resulting Agency Comment Performing Organization Information Site ID: [id number] Name: [facility] Address: [address] [place] [phone] Director: Gopal Hamilton MD us Juan Damico DO LAB CYTOLOGY ORDERABLES Emilie cutler Result Performing Organization Address City/State/[facility] Co de Phone Number [facility] * Bilateral screening mammogram with tomosynthesis (10/31/2023 1:06 PM EST) Anatomical Region Laterality Modality Breast Bilateral Mammography 11/07/2023 10:2 9 AM EST Impressions 11/07/2023 1:04 PM EST BIRADS 1 - Negative Follow-up: Routine Screening Mamm . Board Certified Radiologists. Accredited by the ACR and FDA. MAMMOGRAPHY IS VERY IMPORTANT TO YOUR HEALTH. THE [employer] GUIDELINES RECOMMEND THAT WOMEN 40 [...] BY: ELECTRONICALLY SIGNED BY: Quinton Carson MD Narrative 11/07/2023 1:04 PM EST EXAMINATION: BI MAMMOGRAM SCREENING TOMOSYNTHESIS BILATERAL CLINICAL HISTORY: annual breast cancer screening COMPARISON: September 28, 2022, September 14, 2022. RESULT: Digital mammography and 3D tomosynthesis of bilateral breasts was performed. There are scattered areas of fibroglandular density. Overall appearance is stable. There is no suspicious mass, asymmetry, architectural distortion, or calcification. Procedure Note Quinton Carson MD - 11/07/2023 EXAMINATION: BI MAMMOGRAM SCREENING TOMOSYNTHESIS BILATERAL CLINICAL HISTORY: annual breast cancer screening COMPARISON: September 28, 2022, September 14, 2022. RESULT: Digital mammography and 3D tomosynthesis of bilateral breasts wasperformed. There are scattered areas of fibroglandular density. Overall appearance is stable. There is no suspicious mass, asymmetry,architectural distortion, or calcification. IMPRESSION: BIRADS 1 - Negative Follow-up: Routine Screening Mamm . Board Certified Radiologists. Accredited by the ACR and FDA. MAMMOGRAPHY IS VERY IMPORTANT TO YOUR HEALTH. THE [employer] SOCIETYGUIDELINES RECOMMEND THAT WOMEN 40 YEARS OF AGE AND OLDER SHOULD HAVE AMAMMOGRAM EVERY YEAR. A REMINDER LETTER WILL BE SENT AT THE APPROPRIATE TIME. THIS FACILITYUTILIZES A REMINDER SYSTEM TO ENSURE ALL PATIENTS RECEIVE REMINDERNOTIFICATIONS AT THE APPROPRIATE TIME BASED ON THE RECOMMENDATIONS OF THISEXAM. THIS INCLUDES REMINDERS FOR ROUTINE SCREENING MAMMOGRAMS, DIAGNOSTICMAMMOGRAMS IN WHICH THE PATIENT IS ASKED TO RETURN FOR ADDITIONAL VIEWS,OR OTHER BREAST IMAGING INTERVENTIONS WHEN APPROPRIATE. THE PATIENT WILLBE PLACED IN THE APPROPRIATE REMINDER SYSTEM INCLUDING A REMINDER AT THEAPPROPRIATE TIME FOR ANY PENDING ADDITIONAL VIEWS. TRANSCRIBED BY: ELECTRONICALLY SIGNED BY: Quinton Carson MD Hyacinth King NP IMG BI PROCEDURES Final Result * Colonoscopy (03/24/2020) Anatomical Region Laterality Modality Endoscopy 03/24/2020 Narrative 03/20/2020 12:00 AM EDT PERFORMED AT [facility] LOCATION:[place] [address] 230 Procedure Note CONVERSION, GENERIC - 03/22/2023 PERFORMED AT [facility] LOCATION:[address] Eliceo Gómez DO ENDOSCOPY PROCEDURE ORDERABLE S Final Result * OCC BLD IMMUNOASSAY (03/13/2020) OCCULT BLOOD NEGATIVE NEGATIVE [facility] PERFORMING LAB: see note [facility] Comment:[address] Laboratory - Health 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 Makenna Flores,[place] [address] ,Ext. [phone] 03/13/2020 Eliceo Gómez DO [facility] Final Result Performing Organization Address City/State/[facility] Co de Phone Number [facility] from Last 3 Months or Most Recently Relevant to Health Maintenance Insurance [place]IC[place]ICA[place] [facility] MEDICARE Care Teams Fleece Tier Relationship Specialty Start Date End Date Eliceo Gómez DO [address] [place] [address] PCP - General Family Medicine 04/04/23 Eliceo Gómez DO [address] [place] [address] PCP - [facility] 05/06/2310/05 Juan Damico DO [address] [place] [address] Referring Physician Obstetrics and Gynecology 05/20/24
--- OUTSIDE RECORDS SUMMARY | 2025-04-02 07:43 | XMS_ITS | Encounter Summary ---
Author Organization [facility] Address [address] [facility] [address] Care Team Providers Care Research Affiliate Name Role Phone Eliceo Gómez DO Primary Care Provider [phone] Eliceo Gómez DO Unavailable [phone] Juan Damico DO Unavailable [phone] Encounter Details Date Type Department Care Team (Late st Contact Info) Description 06/20/2024 Abstract [facility] [address] [facility] [address] [place] [address] Eliceo Gómez DO [address] [facility] [address] [place] [address] Social History Tobacco Use Types Packs/Day Years [...] How often do you attend chur or nondenominational services? Never 05/01/2024 Do you belong to [...] Recorded Patient Health Questionnaire-2 Score 0 06/12/2024 [facility] [place] of Occupat ionaz Health - Occupational Stress Questionnaire Answer Date [...] the past 12 m [facility], were you homeless or living in [...] Procedure Visit [facility] [address] [place] [address] Yo Galeas DO [address] [facility]11 11/20/2025 8:30 AM EST Office Visit [facility] [address] [place] [phone] Nelsy Harris, SALES DEVELOPMENT DIRECTOR-SPRAY MACHINE OPERATOR [address] [place] [address] documented as of this encounter Visit Diagnoses Not on filedocumented in this encounter Care Teams Research Affiliate Relationship Specialty Start Date End Date Eliceo Gómez DO [address] [place] [address] PCP - General Family Medicine 04/04/23 Eliceo Gómez DO [address] [place] [address] PCP - [facility] 05/06/2310/05 Juan Damico DO [address] [place] [address] Referring Physician Obstetrics and Gynecology 05/20/24 documented as of this encounter
--- OUTSIDE RECORDS SUMMARY | 2025-04-02 07:43 | XMS_ITS | Encounter Summary ---
Author Organization [facility] Address [address] [place] [address] Care Team Providers Care Retail Sales Consultant Name Role Phone Eliceo Gómez DO Primary Care Provider [phone] Eliceo Gómez DO Unavailable [phone] Beata Hernandez Unavailable Juan Damico DO Unavailable [phone] Encounter Details Date Type Department Care Team (Late st Contact Info) Description 01/24/2024 Abstract [facility] [address] [facility] [address] [place] [phone] Eliceo Gómez, DO [address] [facility] [address] [place] [address] Social History Tobacco Use Types Packs/Day Years [...] How often do you attend chur or restorationism services? Never 04/14/2023 Do you belong to any clubs o r organizations such as religion groups, unions, fraternal or athletic groups, or [...] Recorded Patient Health Questionnaire-2 Score 0 10/03/2023 [facility] of Occupat ional Health - [...] in a mcc (including now)? No 10/25/2023 Comments No Sex [...] 04/30/2025 4:00 PM EDT Procedure Visit [facility] [address] [place] [phone] Yo Galeas DO [address] [place] [address] 11/20/2025 8:30 AM EST Office Visit [facility] [address] [place] [address] Nelsy Harris APRN-WATERWORKS SUPERVISOR [address] [place] [address] documented as of this encounter Visit Diagnoses Not on filedocumented in this encounter Care Teams Retail Sales Consultant Relationship Specialty Start Date End Date Eliceo Gómez, DO [address] [place] [address] PCP - General Family Medicine 04/04/23 Eliceo Gómez DO [address] [place] [address] PCP - [facility] 05/06/2310/05 Beata Hernandez PA [address] [place] [address] Dietitian Nutrition 08/08/23 05/16/24 Juan Damico DO [address] [place] [address] Referring Physician Obstetrics and Gynecology 05/20/24 documented as of this encounter
--- OUTSIDE RECORDS SUMMARY | 2025-04-02 07:43 | XMS_ITS ---
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 Past Treatment and Therapy Plans No past plan information found. Lifetime Dose Tracking * Chemical Lifetime Dose Automatic Entry Manual Entr y Radiation 15 mSv 15 mSv 0 mSv Resolved Problems Problem Noted Date Diagnosed Date Resolved Date Hyperglycemia 04/06/2023 10/03/2023 Colostomy present 04/04/2023 09/07/2023 Dysphagia 04/04/2023 01/23/2024 Obesity (BMI 30-39.9) 04/04/20232022 Sciatica 04/04/2023 07/05/2023 Lack of coordination 01/18/2022 023 Pelvic floor dysfunction 12/24/2021
--- OUTSIDE RECORDS SUMMARY | 2025-04-02 07:43 | XMS_ITS | Encounter Summary ---
Author Organization [facility] Address [address] [place] [address] Care Team Providers Care Labor Arbitrator Name Role Phone Eliceo Gómez DO Primary Care Provider [phone] Eliceo Gómez DO Unavailable [phone] Beata Hernandez Unavailable Juan Damico DO Unavailable [phone] Encounter Details Date Type Department Care Team (Late st Contact Info) Description 03/04/2024 Abstract [facility] [address] [facility] [address] [place] [phone] Elicoe Gómez, DO [address] [facility] [address] [place] [address] Social History Tobacco Use Types Packs/Day Years [...] How often do you attend chur or presybeterian services? Never 04/14/2023 Do you belong to any clubs o r organizations such as orthodox groups, unions, fraternal or athletic groups, [...] Recorded Patient Health Questionnaire-2 Score 0 10/03/2023 [facility] of Occupat ional Health - Occupational [...] a nursing home (including now)? No 10/25/2023 Comments No [...] 04/30/2025 4:00 PM EDT Procedure Visit [facility] [place] [address] [place] [phone] Yo Galeas DO [address] [place] [address] 11/20/2025 8:30 AM EST Office Visit [facility] [address] [place] [address] Nelsy Harris APRN-MATERIAL HANDLER [address] [place] [address] documented as of this encounter Visit Diagnoses Not on filedocumented in this encounter Care Teams Labor Arbitrator Relationship Specialty Start Date End Date Eliceo Gómez, DO [address] [place] [address] PCP - General Family Medicine 04/04/23 Eliceo Gómez DO [address] [place] [address] PCP - [facility] 05/06/2310/05 Beata Hernandez PA [address] [place] [address] Dietitian Nutrition 08/08/23 05/16/24 Juan Damico DO [address] [place] [address] Referring Physician Obstetrics and Gynecology 05/20/24 documented as of this encounter
--- OUTSIDE RECORDS SUMMARY | 2025-04-02 07:43 | XMS_ITS | Encounter Summary ---
Author Organization [facility] Address [address] [place] [address] Care Team Providers Care Process Engineer Name Role Phone HernandezEliceo randolph Asiya DO Primary Care Provider [phone] Eliceo Gómez DO Unavailable [phone] Beata Hernandez Unavailable Juan Damico DO Unavailable [phone] Encounter Details Date Type Department Care Team (Late st Contact Info) Description 04/13/2023 Orders Only [facility] [address] [place] [address] Jacob Felix MD [address] [place] [address] [place] [address] Social History Tobacco Use Types Packs/Day Years [...] any clubs o r organizations such as taoist groups, unions, fraternal or athletic groups, or [...] Recorded Patient Health Questionnaire-2 Score 0 04/06/2023 [facility] of Occupat ional Health - Occupational [...] slept in a halfway (including now)? No 04/14/2023 Comments Unknown Sex and Gender Information Value Date Recorded Sex Assigned at Female 03/13/2023 7:50 AM EDT Legal Sex Female 7:14 PM EDT Gender Identity Female 01/18/2023 7:14 PM EDT Sexual Orientation Not on file COVID-19 Exposure Response Date Recorded In the last 10 days, have yo u been in contact with someone who was confirmed or suspected to have Coronavirus/COVID-19? No / Unsure 04/14/2023 3:47 PM EDT documented as of this encounter Functional Status * Audit-C Score Answer Date of Assessment Author 0 04/14/2023 3:46 PM EDT [employer], Generic * Q1: How often do you have a drink containing alcohol? Answer Date of Assessment Author Never 04/14/2023 3:46 PM EDT Jasen, Generic * Q2: How many drinks containing alcohol do you have on a typical day when you are drinking? Answer Date of Assessment Author Patient does not drink 04/14/2023 3:46 PM EDT My chart, Generic * Q3: How often do you have six or more drinks on one occasion? Answer Date of Assessment Author Never 04/14/2023 3:46 PM EDT Mychart, Generic documented as of this encounter Plan of Treatment Upcoming Encounters Date Type Department Care Team (Late st Contact Info) Description 04/30/2025 4:00 PM EDT Procedure Visit [facility] [address] [place] [phone] Adal YoDO [address] [place] [address] 11/20/2025 8:30 AM EST Office Visit [facility] [address] [place] [address] Steven Nelsy Thomas, HOT MIX OPERATOR-TINSMITH HELPER [address] [place] [address] documented as of this encounter Procedures Procedure Name Priority Date/Time Associated Diagnosis Comments XR FOOT 3+ VIEWS RIGHT Routine 04/12/2023 10:12 AM EDT documented in this encounter Results * XR FOOT 3+ VIEWS RIGHT (04/12/2023 10:12 AM EDT) Anatomical Region Laterality Modality Radiographic Ira ging Jacob Felix MD IMG XR PROCEDURES Final Re sult documented in this encounter Visit Diagnoses Not on filedocumented in this encounter Care Teams Process Engineer Relationship Specialty Start Date End Date lEiceo Gómez DO [address] [place] [address] PCP - General Family Medicine 04/04/23 Eliceo Gómez DO [address] [place] [address] PCP - [facility] 05/06/2310/05 Beata Hernandez PA [address] [place] [address] Dietitian Nutrition 08/08/23 05/16/24 Juan Damico DO [address] [place] [address] Referring Physician Obstetrics and Gynecology 05/20/24 documented as of this encounter
--- OUTSIDE RECORDS SUMMARY | 2025-04-02 07:43 | XMS_ITS | Encounter Summary ---
Author Organization [facility] Address [address] [place] [address] Care Team Providers Care Acid Tank Liner Name Role Phone Eliceo Gómez DO Primary Care Provider [phone] Eliceo Gómez DO Unavailable [phone] Juan Damico DO Unavailable [phone] Encounter Details Date Type Department Care Team (Late st Contact Info) Description 07/10/2024 Clinisync Result Encounter [facility] External Department Unsolicited [...] How often do you attend chur or temple services? Never 05/01/2024 Do you belong to [...] Recorded Patient Health Questionnaire-2 Score 0 07/11/2024 [facility] of Occupat ional Health - [...] any time in the past 12 m [facility], were you homeless or [...] things Not at all 07/11/2024 9:44 AM CAROLEET Mikala Fowler LPN Feeling down, depressed, or hopeless Not at all 07/11/2024 9:44 AM CAROLEET Mikala Fowler LPN Patient Health Questionnaire-2 Score 0 07/11/2024 9:44 AM EDT Nicole Fowler LPN documented as of this encounter Plan of Treatment Upcoming Encounters Date Type Department Care Team (Late st Contact Info) Description 04/30/2025 4:00 PM EDT Procedure Visit [facility] TOBIN [address] [place] [phone] Yo Galeas DO [address] [place] [address] 11/20/2025 8:30 AM EST Office Visit [facility] [address] [place] [address] Nelsy Harris APRN-SET OFF BLOCKER [address] [place] [address] documented as of this encounter Procedures Procedure Name Priority Date/Time Associated Diagnosis Comments XR FOOT RT MIN 3V 07/10/2024 6:5 9 AM EDT documented in this encounter Results * XR FOOT RT MIN 3V (07/10/2024 6:59 AM EDT) Anatomical Region Laterality Modality Other 07/10/2024 6:59 AM EDT Narrative 07/10/2024 7:02 AM EDT [address] [address] XRay Report Signed Patient: MARY FUENTES MR#: [id number] : 1970 Acct:[id number] Age/Sex: 54 / F ADM Date: 07/09/24 Loc: EC Attending Dr: Sade Felix D.P.M. Ordering Physician: Sade Felix D.P.M. Date of Service: 07/09/24 Procedure(s): XR foot RT min 3V Accession Number(s): [id number] cc: Sade Felix D.P.M.; Isatu GÓMEZ [address] [address] Patient Name: MARY FUENTES MRN: [id number] date: 1970 Sex: F Assigned Patient Location: Current Patient Location: Accession/Order Number: [id number] Exam Date: 07/09/2024 10:00 Report Date: 07/10/2024 06:59 At the request of: SADE FELIX Procedure: XR foot RT min 3V PROCEDURE: XR foot RT min 3V HISTORY: RIGHT FOOT PAIN COMPARISON: XR foot right 06/19/2024 FINDINGS: BONES:Prior talocalcaneal and talonavicular fusion via multiple lag screws. Prior posterior and anterior calcaneal osteotomy and fusion. Osteotomy and wedge placement within medial cuneiform. Osteotomy and single screw repair involving head of first metatarsal. Mild degenerative changes the first metatarsophalangeal joint. SOFT TISSUES:No visible soft tissue swelling. EFFUSION:None visible. OTHER: Negative. XR/XR foot RT min 3V IMPRESSION: 1. Stable surgical changes without evidence of hardware failure. Electronically authenticated by: ADAM OLIVEROS Date: 07/10/2024 06:59 Dictated By: Adam Oliveros M.D. Signed By: 07/10/2402 DD/ 0659 TD/TT: Data Conversion Developer: Procedure Note Radiology, Radiologist, MD - 07/10/2024 [place] [address] XRay Report Signed Patient: MARY FUENTES DMR#: [id number] : 1970Acct:[id number] Age/Sex: 54 / FADM Date: 07/09/24 Loc: EC Attending Dr: Sade Felix D.P.M. Ordering Physician: Sade Felix D.P.M. Date of Service: 07/09/24 Procedure(s): XR foot RT min 3V Accession Number(s): [id number] cc: Sade Felix D.P.M.; Isatu GÓMEZ [place] [address] Patient Name: MARY FUENTES MRN: [facility]:[id number] date: 1970 Sex: F Assigned Patient Location: Current Patient Location: Accession/Order Number: [id number] Exam Date: 07/09/2024 10:00 Report Date: 07/10/2024 06:59 At the request of: SADE FELIX Procedure: XR foot RT min 3V PROCEDURE: XR foot RT min 3V HISTORY: RIGHT FOOT PAIN COMPARISON: XR foot right 06/19/2024 FINDINGS: BONES:Prior talocalcaneal and talonavicular fusion via multiple lagscrews. Prior posterior and anterior calcaneal osteotomy and fusion. Osteotomy and wedge placement within medial cuneiform. Osteotomy and single screw repair involving head of first metatarsal. Mild degenerative changes the first metatarsophalangeal joint. SOFT TISSUES:No visible soft tissue swelling. EFFUSION:None visible. OTHER: Negative. XR/XR foot RT min 3V IMPRESSION: 1. Stable surgical changes without evidence of hardware failure. Electronically authenticated by: ADAM OLIVEROS Date: 07/10/2024 06:59 Dictated By: Adam Oliveros M.D. Signed By:07/10/24 0702 DD/ 0659 TD/TT: Data Conversion Developer: us Generic External Data Provider [facility] Final Result documented in this encounter Visit Diagnoses Not on filedocumented in this encounter Care Teams Acid Tank Liner Relationship Specialty Start Date End Date Eliceo Gómez DO [address] [place] [address] PCP - General Family Medicine 04/04/23 Eliceo Gómez DO [address] [place] [address] PCP - [facility] 05/06/2310/05 Juan Damico DO [address] [place] [address] Referring Physician Obstetrics and Gynecology 05/20/24 documented as of this encounter
--- OUTSIDE RECORDS SUMMARY | 2025-04-02 07:43 | XMS_ITS | Encounter Summary ---
Author Organization [facility] Address [address] [facility] [place] [address] Care Team Providers Care Hybrid Derivatives Trader Name Role Phone Eliceo Gómez DO Primary Care Provider [phone] Eliceo Gómez DO Unavailable [phone] Juan Damico DO Unavailable [phone] Encounter Details Date Type Department Care Team (Late st Contact Info) Description 05/29/2024 Abstract [facility] [address] [facility] 230 [place] [address] Eliceo Gómez DO [address] [facility] [address] [place] [address] Social History Tobacco Use Types Packs/Day Years [...] you attend chur or restorationism services? Never 05/01/2024 Do you belong to [...] Recorded Patient Health Questionnaire-2 Score 0 05/14/2024 [facility] of Occupat ionks Health - Occupational Stress [...] in a intermediate (including now)? No 10/25/2023 Housing Stability Vital Sign Answer Melecio e Recorded In the last 12 months, was t here a time when you were not able to pay the mortgage or rent on time? No 05/01/2024 In the past 12 months, how m any times have you moved where you were living? 1 05/01/2024 At any time in the past 12 m [facility], were you homeless or living in a intermediate (including now)? No 05/01/2024 Comments No Sex [...] Procedure Visit [facility] TOBIN [address] [place] [phone] Yo Galeas DO [address] [place] [facility] 11/20/2025 8:30 AM EST Office Visit [facility] [address] [place] [phone] Nelsy Harris, ELECTRODE CLEANING MACHINE OPERATOR-MULTI SITE LEASING CONSULTANT [address] [place] [address] documented as of this encounter Visit Diagnoses Not on filedocumented in this encounter Care Teams Hybrid Derivatives Trader Relationship Specialty Start Date End Date Eliceo Gómez DO [address] [place] [address] PCP - General Family Medicine 04/04/23 Eliceo Gómez DO [address] [place] [address] PCP - [facility] 05/06/2310/05 Juan Damico DO [address] [place] [address] Referring Physician Obstetrics and Gynecology 05/20/24 documented as of this encounter
--- OUTSIDE RECORDS SUMMARY | 2025-04-02 07:43 | XMS_ITS | Encounter Summary ---
Author Organization [facility] Address [id number] [address] [place] [address] Care Team Providers Care Miniature Set Builder Name Role Phone Dalia Morales DO Eliceo Braden Primary Care Provider + Encounter Details Date Type Department Care Team (Late st Contact Info) Description 10/18/2023 [facility] [address] [place] [address] Kim Acharya RN Social History Tobacco Use Types Packs/Day Years [...] got money to buy more. Never True 09/07/2023 Within the past 12 months th e food we bought just didn't last and we didn't have money to get more. Never True 09/07/2023 Purpose - Life Answer Date Recorded Purpose and direction in life Unknown Comments No Sex and Gender Information Value Date Recorded Sex Assigned at Female 07/28/2020 6:39 PM EDT Legal Sex Female 12:08 PM EDT Gender Identity Female 07/28/2020 6:39 PM EDT Sexual Orientation Not on file documented as of this encounter Miscellaneous Notes * Telephone Encounter - Kim Acharya RN - 10/18/2023 11:34 AM EST ----- Message from Pauline Christensen MD sent at 10/13/2023 9:00 AM EST ----- Regarding: Inspire denial I got a message from Yosef from [employer] about a denial for Inspire from [facility]. It was apparently denied because the med notes don't clarify why she stopped using the CPAP and they needed further clarification. We can do inge-gi-dihu once we have the information. There is a string of telephone encounters in [facility] from 03/02/23, where we had recommended CPAP, and explained how use of CPAP, and failure to continue using it is necessary for approval of Inspire therapy. She had mentioned that she had used CPAP but could not tolerate it. We need better details about CPAP- what type/pressure settings/ when it was prescribed/how long she used it/why she could no longer use it/what was done to address her challenges with CPAP. We have 60 days to appeal. Thank you * Telephone Encounter - Kim Acharya RN - 10/18/2023 11:34 AM EST Patient called office and RN advised on below. Patient was able to clarify that she was not able to tolerate her CPAP due to claustrophobia as well as not able to sleep with the mask on and being very restless. Patient was on medication to help sleep at the time and it was not helping while trying to wear her CPAP. Patient stated that she felt like she was suffocating and then that would cause her to panic and take the machine off. Patient also tried to look around for dentist that would make oral appliance but none took her insurance. Patient did trial different masks but she did not know the names of each brand she tried but the change in mask did not help. RN get additional information as was under the impression she had tried CPAP with us and RN could not find documentation after call was ended. Will send [employer] message with additional information needed. * Telephone Encounter - Kim Acharya RN - 10/18/2023 11:34 AM EST Patient responded to ethologyt message stating that Dr. Todd Noe had started patient on CPAP. Information in care everywhere. She was only on CPAP for about 2 months. Pressure was 5-15 cm H2O and started with nasal mask but then went to full face. Also was supposed to undergo titration study but did not complete. Denial letter scanned in under media. RN will draft appeal letter and fax to [employer] once completed. * Telephone Encounter - Kim Acharya RN - 10/18/2023 11:34 AM EST Appeal letter written and faxed to [employer] and appeals. Will wait response * Telephone Encounter - Kim Acharya RN - 10/18/2023 11:34 AM EST Received fax confirmation * Telephone Encounter - Kim Acharya RN - 10/18/2023 11:34 AM EST Copied from duplicate encounter: Patient called and asked to have Dr. Christensen's nurse give her a call back. She would like to speak with her about the Inspire Sleep Apnea Device. She can be reached at [phone] * Telephone Encounter - Kim Acharya RN - 10/18/2023 11:34 AM EST Called to check status of appeal but had to leave VM with department asking for call back regarding appeal. * Telephone Encounter - Kim Acharya RN - 10/18/2023 11:34 AM EST Received transferred call from Tracie at [employer]. She stated she does not see RN's appeal that was sent for Inspire on 10/19. RN verified fax # that was on letter that RN sent letter to. She stated she has a fax # to be sent that is [phone]. RN stated will try to refax letter to new fax #. She also provided secondary fax # of [phone]. RN faxed appeal to both #s listed above. Sent patient message via [employer] with update. Received fax confirmation on both #s * Telephone Encounter - Kim Acharya RN - 10/18/2023 11:34 AM EST RN received fax from [employer] stating that they received appeal for Inspire but it needs to be sent via mail. RN sent all appeal information to [employer] as listed on the fax and placed in outgoing mail. * Telephone Encounter - Kim Acharya RN - 10/18/2023 11:34 AM EST Received letter in mail from [employer] stating that it appears this is a post appeal dispute and needs to be sent to correct address . RN marked on letter that service has not been completed until approved so this is a pre service appeal and that was the address that appeal was sent to. Also marked that this needs to marked as urgent since [employer] has provided misinformation to our office on many occasions and we need to not delay patient care any further. * Telephone Encounter - Kim Acharya RN - 10/18/2023 11:34 AM EST RN had email from [employer] stating approval came through for device after faxing to # provided by rep for appeals. Letter scanned in under media. RN informed patient via ethologyt. documented in this encounter Plan of Treatment Not on file documented as of this encounter Visit Diagnoses Not on filedocumented in this encounter Additional Health Concerns Assessment Noted Time PHQ-9 Depression Total Score: 0 01/27/20 23 1:28 PM EDT documented as of this encounter Care Teams Miniature Set Builder Relationship Specialty Start Date End Date Eliceo Gómez Jr., [address] [place] [address], [address], [place] [address] PCP - General Family Medicine 12/11/19 Jenna Butler [address] Consulting Physician Behavioral Health 12/20/23 documented as of this encounter
--- OUTSIDE RECORDS SUMMARY | 2025-04-02 07:43 | XMS_ITS | Encounter Summary ---
Author Organization [facility] Address [address] [place] [address] Care Team Providers Care Cnc Maintenance Mechanic Name Role Phone HernandezEliceo randolph Asiya DO Primary Care Provider [phone] Eliceo Gómez DO Unavailable [phone] Beata Hernandez Unavailable Juan Damico DO Unavailable [phone] Encounter Details Date Type Department Care Team (Late st Contact Info) Description 04/14/2023 Orders Only [facility] [address] [place] [address] Jacob Felix MD [address] [place] [address] [place] [address] Social History Tobacco Use Types Packs/Day Years [...] How often do you attend chur or mormon services? Never 04/14/2023 Do you belong to any clubs o r organizations such as sikhism groups, unions, fraternal or athletic groups, or [...] Recorded Patient Health Questionnaire-2 Score 0 04/06/2023 [facility] - Occupational [...] a jail (including now)? No 04/14/2023 Comments Unknown Sex [...] TOBIN [address] [place] [address] Christ GaleasroselynDO [address] [place] [address] 11/20/2025 8:30 AM EST Office Visit [facility] [address] [place] [address] Steven Nelsy Thomas, BUSINESS OFFICE TECHNOLOGY INSTRUCTOR-RECORDS MANAGEMENT COORDINATOR [address] [place] [address] documented as of this encounter Procedures Procedure Name Priority Date/Time Associated Diagnosis Comments CT ANKLE RIGHT W AND WO IV CONTRAST Routine 04/14/2023 3:02 PM EDT documented in this encounter Results * CT ANKLE RIGHT W AND WO IV CONTRAST (04/14/2023 3:02 PM EDT) Anatomical Region Laterality Modality Lower Extremities, Ankle Compute d Tomography Jacob Felix MD IMG CT PROCEDURES Final Re sult documented in this encounter Visit Diagnoses Not on filedocumented in this encounter Care Teams Cnc Maintenance Mechanic Relationship Specialty Start Date End Date Eliceo Gómez DO [address] [place] [address] PCP - General Family Medicine 04/04/23 Eliceo Gómez DO [address] [place] [address] PCP - [facility] 05/06/2310/05 Beata Hernandez PA [address] [place] [address] Dietitian Nutrition 08/08/23 05/16/24 Juan Damico DO [address] [facility] [address] [place] [address] Referring Physician Obstetrics and Gynecology 05/20/24 documented as of this encounter
--- OUTSIDE RECORDS SUMMARY | 2025-04-02 07:43 | XMS_ITS | Encounter Summary ---
Author Organization [facility] Address [address] [facility] [place] [address] Care Team Providers Care Outboard Motors Experimental Mechanic Name Role Phone Eliceo Gómez DO Primary Care Provider [phone] Eliceo Gómez DO Unavailable [phone] Beata Hernandez Unavailable Juan Damico DO Unavailable [phone] Encounter Details Date Type Department Care Team (Late st Contact Info) Description 05/19/2023 Orders Only [facility] [address] [facility] [place] [phone] Provider, MD Pilo [address] [place] [address] Social History Tobacco Use Types Packs/Day [...] often do you attend chur ch or mosque services? Never 04/14/2023 Do you belong to [...] Recorded Patient Health Questionnaire-2 Score 0 04/06/2023 [facility] Occupat ional Health - Occupational [...] a halfway (including now)? No 04/14/2023 Comments No Sex [...] Procedure Visit [facility]ITA TOBIN [address] [place] [phone] Yo Galeas DO [address] [place] [address] 11/20/2025 8:30 AM EST Office Visit [facility] [address] [place] [address] Nelsy Harris APRN-TROUBLE LOCATOR TEST DESK [address] [place] [address] documented as of this encounter Procedures Procedure Name Priority Date/Time Associated Diagnosis Comments VASC US LOWER EXTREMITY VENOUS DUPLEX LEFT Routine 05/18/2023 8:26 AM EDT XR FOOT 3+ VIEWS RIGHT Routine 05/18/2023 8:24 AM EDT documented in this encounter Results * Vascular US lower extremity venous duplex left (05/18/2023 8:26 AM EDT) Anatomical Region Laterality Modality Lower Extremities Ultrasound us Historical Provider MD DOMINGUEZ US PROCEDURES Final R esult * XR FOOT 3+ VIEWS RIGHT (05/18/2023 8:24 AM EDT) Anatomical Region Laterality Modality Radiographic Ira ging us Historical Provider MD DOMINGUEZ XR PROCEDURES Final R esult documented in this encounter Visit Diagnoses Not on filedocumented in this encounter Care Teams Outboard Motors Experimental Mechanic Relationship Specialty Start Date End Date Eliceo Gómez DO [address] [place] [address] PCP - General Family Medicine 04/04/23 Eliceo Gómez DO [address] [place] [address] PCP - [facility] 05/06/2310/05 Beata Hernandez PA [address] [place] [address] Dietitian Nutrition 08/08/23 05/16/24 Juan Damico DO [address] [place] [address] Referring Physician Obstetrics and Gynecology 05/20/24 documented as of this encounter
--- OUTSIDE RECORDS SUMMARY | 2025-04-02 07:43 | XMS_ITS | Encounter Summary ---
Author Organization [facility] Address [address] [facility] [place] [address] Care Team Providers Care Travel Trailer Components Assembler Name Role Phone Eliceo Gómez DO Primary Care Provider [phone] Eliceo Gómez DO Unavailable [phone] Juan Damico DO Unavailable [phone] Encounter Details Date Type Department Care Team (Late st Contact Info) Description 06/24/2024 Abstract [facility] [address] [facility] [address] [place] [address] Eliceo Gómez DO [address] [facility] [address] [place] [address] Social History Tobacco Use Types Packs/Day Years [...] How often do you attend chur or congregational services? Never 05/01/2024 Do you belong to any clubs o r organizations such as quaker groups, unions, fraternal or athletic groups, or [...] Recorded Patient Health Questionnaire-2 Score 0 06/12/2024 [facility] [place] of Occupat ionut Health - Occupational Stress Questionnaire Answer Date [...] any time in the past 12 m [facility], were you homeless or living in [...] Procedure Visit CHUYITA TOBIN [address] [place] [address] Yo Galeas DO [address] [place] [facility] 11/20/2025 8:30 AM EST Office Visit [facility] [address] [place] [phone] Nelsy Harris, SR. OPERATIONS MANAGER-POST SECONDARY PROFESSIONAL [address] [place] [address] documented as of this encounter Visit Diagnoses Not on filedocumented in this encounter Care Teams Travel Trailer Components Assembler Relationship Specialty Start Date End Date Eliceo Gómez DO [address] [place] [address] PCP - General Family Medicine 04/04/23 Eliceo Gómez DO [address] [place] [address] PCP - [facility] 05/06/2310/05 Juan Damico DO [address] [place] [address] Referring Physician Obstetrics and Gynecology 05/20/24 documented as of this encounter
--- OUTSIDE RECORDS SUMMARY | 2025-04-02 07:43 | XMS_ITS | Encounter Summary ---
Author Organization [employer] Address [facility]-[id number] [address] [place] [address] Care Team Providers Care Director Career Services Name Role Phone Dalia Morales DO Eliceo Braden Primary Care Provider + Encounter Details Date Type Department Care Team (Late st Contact Info) Description 10/03/2023 [facility] [address] [place] [address] Kim Acharya RN Social History [...] Telephone Encounter - Kim Acharya RN - 10/03/2023 9:41 AM EST RN received message from Dr. Christensen asking RN to reach out to patient since he was contacted by [facility] stating patient was reaching out about eligibility. RN called patient and she stated that she needed something submitted to insurance for approval for her Inspire. RN advised on below and that at her appointment on 10/23/23, it could be discussed further as RN does not typically handle Inspire and that is Dr. Christensen's sleep clinic. She stated understanding but wanted to see if this could be started prior since it does take time. RN stated will reach out to see. Patient also mentioned that her problem is not falling asleep its staying asleep as she feels she wakes up due to gasping for air. Stated understanding. She appears eligible based on the fact that her CHUCKIE is moderate, her BMI is within range and she has tried and failed CPAP. Could you please call to enquire. I think part of confusion may be coming from the fact that she has significant insomnia, and Dr. Dawkins was concerned that inspire would not help that. We should explain to her in no unclear terms that the symptoms of insomnia may or may not respond to inspire therapy, since that is possibly multifactorial and not a symptom of CHUCKIE. However considering how significant her sleep apnea is, she willstill need a treatment in some form (CPAP or inspire for her degree of sleep apnea). Thanks * Telephone Encounter - Pauline Christensen MD - 10/03/2023 9:41 AM EST I don't know what exactly the insurance requires from us. Could we please coordinate with Dr. Dawkins's office if they need to send something over to insurance. Thanks documented in this encounter Plan of Treatment Not on file documented as of this encounter Visit Diagnoses Not on filedocumented in this encounter Additional Health Concerns Assessment Noted Time PHQ-9 Depression Total Score: 0 01/27/20 23 1:28 PM EDT documented as of this encounter Care Teams Director Career Services Relationship Specialty Start Date End Date Eliceo Gómez Jr., DO [address] [place] [address], [address], [place] [address] PCP - General Family Medicine 12/11/19 Jenna Butler [address] Consulting Physician Behavioral Health 12/20/23 documented as of this encounter
--- OUTSIDE RECORDS SUMMARY | 2025-04-02 07:43 | XMS_ITS | Encounter Summary ---
Author Organization [facility] [employer] Address [facility]-[id number] [address] [place] [address] Care Team Providers Care Fiscal Manager Name Role Phone Dalia Morales DO, George R Primary Care Provider + Encounter Details Date Type Department Care Team ([facility] st Contact Info) Description 09/19/2023 Telephone [facility] - ENT [address] [place] [address], [address] [place] [address] [place] [address] [place] [address] [address] [place] [address] Social History Tobacco Use Types [...] Telephone Encounter - Cullen Dawkins MD - 09/19/2023 12:37 PM EST Surgery Scheduling Request 09/19/23 Patient: Mary Leal : 1970 Surgical Procedure(s): Inspire hypoglossal nerve stimulator Anesthesia: General Surgery Time: 3 hours Facility Preference: No preference Post Op Destination: Outpatient Medical Clearance Required?: Yes Does medical clearance include perioperative management of anticoagulants? No Nerve Monitor? Yes Special Equipment? Inspire When should patient follow up after surgery? One week Additional Comments: Yosef Horowitz documented in this encounter Plan of Treatment Not on file documented as of this encounter Visit Diagnoses Not on filedocumented in this encounter Additional Health Concerns Assessment Noted Time PHQ-9 Depression Total Score: 0 01/27/20 23 1:28 PM EDT documented as of this encounter Care Teams Fiscal Manager Relationship Specialty Start Date End Date Eliceo Gómez Jr., [address] [place] [address], [address], [place] [address] PCP - General Family Medicine 12/11/19 Jenna Butler [address] Consulting Physician Behavioral Health 12/20/23 documented as of this encounter
--- OUTSIDE RECORDS SUMMARY | 2025-04-02 07:43 | XMS_ITS | Encounter Summary ---
Author Organization [facility] Address [address] [facility] [place] [address] Care Team Providers Care Silviculture Forester Name Role Phone Eliceo Gómez DO Primary Care Provider [phone] Eliceo Gómez DO Unavailable [phone] Juan Damico DO Unavailable [phone] Encounter Details Date Type Department Care Team (Late st Contact Info) Description 05/29/2024 Abstract [facility] [address] [facility] 230 [place] [address] Eliceo Gómez DO [address] [facility] [address] [place] [address] Social History Tobacco Use Types Packs/Day Years [...] How often do you attend chur or mu-ism services? Never 05/01/2024 Do you belong to [...] Recorded Patient Health Questionnaire-2 Score 0 05/14/2024 [facility] [place] of Occupat ionnh Health - Occupational Stress Questionnaire Answer Date [...] slept in a retirement (including now)? No 10/25/2023 Housing Stability Vital Sign Answer Melecio e Recorded In the last 12 months, was t here a time when you were not able to pay the mortgage or rent on time? No 05/01/2024 In the past 12 months, how m any times have you moved where you were living? 1 05/01/2024 At any time in the past 12 m [facility], were you homeless or living in a retirement (including now)? No 05/01/2024 Comments No Sex [...] Procedure Visit CHUYITA TOBIN [address] [place] [address] Yo Galeas DO [address] [place] [facility] 11/20/2025 8:30 AM EST Office Visit [facility] [address] [place] [address] eNlsy Harris, AMMUNITION COMPONENTS INSPECTOR-CERTIFIED PROSTHETIST/ORTHOTIST [address] [place] [address] documented as of this encounter Visit Diagnoses Not on filedocumented in this encounter Care Teams Silviculture Forester Relationship Specialty Start Date End Date Eliceo Gómez DO [address] [place] [address] PCP - General Family Medicine 04/04/23 Eliceo Gómez DO [address] [place] [address] PCP - [facility] 05/06/2310/05 Juan Damico DO [address] [place] [address] Referring Physician Obstetrics and Gynecology 05/20/24 documented as of this encounter
--- OUTSIDE RECORDS SUMMARY | 2025-04-02 07:43 | XMS_ITS | Encounter Summary ---
Author Organization [facility] Address [address] [place] [address] Care Team Providers Care Livestock Agent Name Role Phone Eliceo Gómez DO Primary Care Provider [phone] Eliceo Gómez DO Unavailable [phone] Beata Hernandez Unavailable Juan Damico DO Unavailable [phone] Encounter Details Date Type Department Care Team (Late st Contact Info) Description 02/29/2024 Clinisync Result Encounter [facility] External Department Unsolicited [...] often do you attend chur ch or latter-day services? Never 04/14/2023 Do you [...] Recorded Patient Health Questionnaire-2 Score 0 10/03/2023 [facility] - Occupational Stress Questionnaire Answer Date [...] in a assisted (including now)? No 10/25/2023 Comments No Sex [...] 04/30/2025 4:00 PM EDT Procedure Visit [facility] [address] [place] [phone] Yo Galeas DO [address] [place] [address] 11/20/2025 8:30 AM EST Office Visit [facility] [address] [place] [address] Nelsy Harris, SPINNING OPERATOR-REAL ESTATE ASSESSOR [address] [place] [address] documented as of this encounter Procedures Procedure Name Priority Date/Time Associated Diagnosis Comments XR FOOT RT MIN 3V 02/29/2024 6:3 7 AM EDT documented in this encounter Results * XR FOOT RT MIN 3V (02/29/2024 6:37 AM EDT) Anatomical Region Laterality Modality Other 02/29/2024 6:37 AM EDT Narrative 02/29/2024 6:40 AM EDT [place] [id number] XRay Report Signed Patient: MARY FUENTES MR#: [id number] : 1970 Acct:[id number] Age/Sex: 53 / F ADM Date: 02/28/24 Loc: EC Attending Dr: Sade Felix D.P.M. Ordering Physician: Sade Felix D.P.M. Date of Service: 02/28/24 Procedure(s): XR foot RT min 3V Accession Number(s): [id number] cc: Sade Felix D.P.M.; Isatu GÓMEZ [place] [address] Patient Name: MARY FUENTES MRN: [id number] date: 1970 Sex: F Assigned Patient Location: Current Patient Location: Accession/Order Number: [id number] Exam Date: 02/28/2024 09:13 Report Date: 02/29/2024 06:37 At the request of: SADE FELIX Procedure: XR foot RT min 3V PROCEDURE: XR foot RT min 3V HISTORY: RIGHT FOOT PAIN COMPARISON: XR foot right 11/13/2023 FINDINGS: BONES:Prior fusion of the talonavicular and talocalcaneal joints via lag screws. Prior calcaneal anterior posterior osteotomy with wedge placement anteriorly. Osteotomy and wedge placement within medial cuneiform. Osteotomy and single screw repair of head of first metatarsal. No appreciable hardware fracture or loosening. No bone fracture dislocation. Multifocal mild degenerative joint disease. SOFT TISSUES:No visible soft tissue swelling. EFFUSION:None visible. OTHER: Negative. XR/XR foot RT min 3V IMPRESSION: 1. Stable surgical changes without evidence of hardware failure or change in alignment. Electronically authenticated by: ADAM OLIVEROS Date: 02/29/2024 06:37 Dictated By: Adam Oliveros M.D. Signed By: 02/29/24 0640 DD/ 0637 TD/TT: Office Messenger Helper: Procedure Note Radiology, Radiologist, MD - 02/29/2024 [place] [address] XRay Report Signed Patient: MARY FUENTES DMR#: [id number] : 1970Acct:[id number] Age/Sex: 53 / FADM Date: 02/28/24 Loc: EC Attending Dr: Sade Felix D.P.M. Ordering Physician: Sade Felix D.P.M. Date of Service: 02/28/24 Procedure(s): XR foot RT min 3V Accession Number(s): [id number] cc: Sade Felix D.P.M.; Isatu GÓMEZ [place] [address] Patient Name: MARY FUENTES MRN: [id number] date: 1970 Sex: F Assigned Patient Location: Current Patient Location: Accession/Order Number: [id number] Exam Date: 02/28/2024 09:13 Report Date: 02/29/2024 06:37 At the request of: SADE FELIX Procedure: XR foot RT min 3V PROCEDURE: XR foot RT min 3V HISTORY: RIGHT FOOT PAIN COMPARISON: XR foot right 11/13/2023 FINDINGS: BONES:Prior fusion of the talonavicular and talocalcaneal joints via lag screws. Prior calcaneal anterior posterior osteotomy with wedge placement anteriorly. Osteotomy and wedge placement within medial cuneiform.Osteotomy and single screw repair of head of first metatarsal. No appreciablehardware fracture or loosening. No bone fracture dislocation. Multifocal mild degenerative joint disease. SOFT TISSUES:No visible soft tissue swelling. EFFUSION:None visible. OTHER: Negative. XR/XR foot RT min 3V IMPRESSION: 1. Stable surgical changes without evidence of hardware failure or changein alignment. Electronically authenticated by: ADAM OLIVEROS Date: 02/29/2024 06:37 Dictated By: Adam Oliveros M.D. Signed By:02/29/24 0640 DD/ 0637 TD/TT: Office Messenger Helper: us Generic External Data Provider [facility] Final Result documented in this encounter Visit Diagnoses Not on filedocumented in this encounter Care Teams Livestock Agent Relationship Specialty Start Date End Date Eliceo Gómez DO [address] [place] [address] PCP - General Family Medicine 04/04/23 Eliceo Gómez DO [address] [place] [address] PCP - [facility] 05/06/2310/05 Beata Hernandez PA [address] [place] [address] Dietitian Nutrition 08/08/23 05/16/24 Juan Damico, [address] [place] [address] Referring Physician Obstetrics and Gynecology 05/20/24 documented as of this encounter
--- OUTSIDE RECORDS SUMMARY | 2025-04-02 07:44 | XMS_ITS | Encounter Summary ---
Author Organization [facility] Address [address] [facility] [place] [address] Care Team Providers Care Household Coordinator Name Role Phone Eliceo Gómez DO Primary Care Provider [phone] Eliceo Gómez DO Unavailable [phone] Juan Damico DO Unavailable [phone] Encounter Details Date Type Department Care Team (Late st Contact Info) Description 05/17/2024 Abstract [facility] [address] [facility] 230 [place] [address] Eliceo Gómez DO [address] [facility] 230 [place] [address] Social History Tobacco Use Types Packs/Day Years [...] any clubs o r organizations such as advent groups, unions, fraternal or athletic groups, or [...] Recorded Patient Health Questionnaire-2 Score 0 05/14/2024 [facility] [place] of Occupat ionvt Health - Occupational Stress Questionnaire Answer Date [...] any time in the past 12 m [facility], were you homeless or [...] Procedure Visit CHUYITA TOBIN [address] [place] [phone] Yo Galeas DO [address] [place] [facility] 11/20/2025 8:30 AM EST Office Visit [facility] [address] [place] [address] Nelsy Harris, SKIN DRIER-MERCHANDISE STOCKER [address] [place] [address] documented as of this encounter Visit Diagnoses Not on filedocumented in this encounter Care Teams Household Coordinator Relationship Specialty Start Date End Date Eliceo Gómez DO [address] [place] [address] PCP - General Family Medicine 04/04/23 Eliceo Gómez DO [address] [place] [address] PCP - [facility] 05/06/2310/05 Juan Damico DO [address] [place] [address] Referring Physician Obstetrics and Gynecology 05/20/24 documented as of this encounter
--- OUTSIDE RECORDS SUMMARY | 2025-04-02 07:44 | XMS_ITS | Patient Health Record ---
Author Organization [facility] in [place] Address [address] [place] [address] Care Team Providers Care Canvas Shrinker Name Role Phone Rudy Rigo LOAIZA Primary Care Provider Sade Ahuja Unavailable [phone] Falguni Duron Unavailable [phone] Allergies No Known Allergies Results Component Value Reference Range Notes XR Foot RT (3 views) * Reviewed date:11/04/2024 01:26:00 PM Interpretation: Performing Lab: Notes/Report: XR Foot RT (3 views) * Reviewed date:11/04/2024 02:42:58 PM Interpretation: Performing Lab: Notes/Report: MRI Ankle RT w/o contrast (H ind Foot) Reviewed date:06/04/2024 09:28:56 AM Interpretation: Performing Lab: Notes/Report: XR Foot RT (3 views) * Reviewed date:04/18/2024 11:43:58 AM Interpretation: Performing Lab: Notes/Report: XR foot RT min 3V (Not yet r eviewed by provider) Interpretation: Performing Lab: Notes/Report: Source Facility: [place] [address] [address] XRay Report Signed Patient: MARY FUENTES MR#: [id number] : 1970 Acct:[id number] Age/Sex: 54 / F ADM Date: 01/03/25 Loc: EC Attending Dr: Sade Felix D.P.M. Ordering Physician: Sade Felix D.P.M. Date of Service: 01/03/25 Procedure(s): XR foot RT min 3V Accession Number(s): [id number] cc: Sade Felix D.P.M.; Isatu CASTRO [place] [id number] Patient Name: MARY FUENTES MRN: [id number] date: 1970 Sex: F Assigned Patient Location: EC Current Patient Location: EC Accession/Order Number: [id number] Exam Date: 01/03/2025 12:17 Report Date: 01/03/2025 12:21 At the request of: SADE FELIX DP Procedure: XR foot RT min 3V RIGHT [...] Makenna Pathak M.D.01/03/2025 12:21 PM Dictation Location: [place] [address] Electronically authenticated by: [id number] Y Date: 01/03/2025 12:21 Dictated By: Makenna Pathak M.D. Signed By: 01/03/25 1223 DD/ 1221 TD/TT: Quick Technician: [place] [address] XRay Report Signed Patient: CRISTY FUENTES MR#: [id number] : 1970 Acct:[id number] Age/Sex: 54 / F ADM Date: 01/03/25 Loc: EC Attending Dr: Sade Felix D.P.M. Ordering Physician: Sade Felix D.P.M. Date of Service: 01/03/25 Procedure(s): XR ryan t RT min 3V Accession Number(s): [id number] cc: Sade Felix D.P.M.; Isatu CASTRO [place] [address] Patient Name: MARY FUENTES MRN: [id number] date: 1970 Sex: F Assigned Patient Location: Current Patient Loca tion: EC Accession/Order Numb er: [id number] Exam Date: 01/03/2025 12:17 Report Date: 01/03/2025 12:21 At the request of: SADE FELIX DPM Procedure: XR foot R T min 3V RIGHT FOOT - 4 views [...] or dislocation. There are no significant soft tis jj abnormalities. X R/XR foot RT min 3V IMPRESSION: STABLE APPEARANCE OF THE FOOT Impression dictated by: Makenna Pathak M.D.01/03/2025 12:21 PM Dictation Location: [place] [address] Electronically authenticated by: [id number] Y Date: 01/03/2025 12:21 Dictated By: Makenna Pathak M.D. Signed By: 01/03/25 1223 DD/ 1221 TD/TT: Quick Technician: FL fluoroscopy <1hr NON-READ (Not yet reviewed by provider) Interpretation: Performing Lab: Notes/Report: Source Facility: [facility] [place] [address] Fluoroscopy Report Signed Patient: MARY FUENTES MR#: [id number] : 1970 Acct:[id number] Age/Sex: 54 / F ADM Date: 05/27/24 Loc: MS 221-[address]: Sade Felix D.P.M. Ordering Physician: Sade Felix D.P.M. Date of Service: 05/27/24 Procedure(s): FL fluoroscopy <1hr NON-READ Accession Number(s): [id number] cc: Sade Felix D.P.M.; Isatu CASTRO [address] [address] Patient Name: MARY FUENTES MRN: [id number] date: 1970 Sex: F Assigned Patient Location: SURGOUT Current Patient Location: MS Accession/Order Number: [id number] Exam Date: 05/27/2024 11:35 Report Date: 05/29/2024 08:32 At the request of: SADE FELIX Procedure: FL fluoroscopy <1hr NON-READ EXAM: FL fluoroscopy <1hr NON-READ HISTORY: TECHNIQUE: FINDINGS: Please see Operative Report. Electronically authenticated by: RADIOLOGIST LANA Date: 05/29/2024 08:32 Dictated By: LanaRadiologist Signed By: 05/29/24 0834 DD/ TD/TT: Quick Technician: [place] [address] Fluoroscopy Report Signed Patient: CRISTY FUENTES MR#: [id number] : 1970 Acct:[id number] Age/Sex: 54 / F ADM Date: 05/27/24 Loc: MS 221-[address]: Sade Felix D.P.M. Ordering Physician: Sade Felix D.P.M. Date of Service: 05/27/24 Procedure(s): FL fluoroscopy <1hr NON-READ Accession Number(s): [id number] cc: Sade Felix D.P.M.; Isatu CASTRO [address] [address] Patient Name: MARY FUENTES MRN: [id number] date: 1970 Sex: F Assigned Patient [facility]: [facility] Current Patient Loca tion: MS Accession/Order Numb er: [id number] Exam Date: 05/27/2024 11:35 Report Date: 05/29/2024 08:32 At the request of: SADE FELIX Procedure: FL fluoro scopy <1hr NON-READ EXAM: FL fluoroscopy <1hr NON-READ HISTORY: TECHNIQUE: FINDINGS: Please see Operative Report. Electronically authenticated by: ATA GONZALEZ Date: 05/29/2024 08:32 Dictated By: Lana,Radiologist Signed By: 05/29/24833 DD/ 1 TD/TT: Quick Technician: CBC AUTO DIFF (Not yet revie wed by provider) Interpretation: Performing Lab: Notes/Report: [facility] , White Blood Count 6.5 4.0-11.0 10 3/uL Red Blood Count 4.51 4.20-5.40 10 6/uL Hemoglobin 13.2 12.0-16.0 g/dL Hematocrit 39.9 36.0-48.0 % Mean Corpuscular Volume 88.5 81.0-99.0 fL Mean Corpuscular Hemoglobin 29.3 26.7-34.0 pg Mean Corpuscular HGB Conc 33.1 29.9-35.2 g/dL Red Cell Distribution Width 13.3 11.0-15.0 % Platelet Count 300 150-450 10 3/uL Mean Platelet Volume 8.6 9.5-13.5 fL Neutrophils Percent Auto 63.0 43.0-75.0 % Lymphocytes Percent Auto 30.0 20.5-60.0 % Monocytes Percent Auto 5.6 1.7-12.0 % Eosinophils Percent Auto 0.6 0.9-7.0 % Basophils Percent Auto 0.3 0.2-2.0 % Immature Granulocytes Pct Auto 0.5 0.0-0.5 % Neutrophils Absolute Auto 4.1 1.4-6.5 10 3/uL Lymphocytes Absolute Auto 1.9 1.2-3.8 10 3/uL Monocytes Absolute Auto 0.4 0.3-0.8 10 3/uL Eosinophils Absolute Auto 0.0 0.0-0.7 10 3/uL Basophils Absolute Auto 0.0 0.0-0.1 10 3/uL Immature Granulocytes Abs Auto 0.03 0.00-0.03 10 3/uL Performing Lab: see note ML - [facility] LB XR foot RT min 3V (Not yet r eviewed by provider) Interpretation: Performing Lab: Notes/Report: Source Facility: [place] [address] [place] [address] XRay Report Signed Patient: MARY FUENTES MR#: [id number] : 1970 Acct:[id number] Age/Sex: 54 / F ADM Date: 10/01/24 Loc: RAD Attending Dr: Sade Felix D.P.M. Ordering Physician: Sade Felix D.P.M. Date of Service: 10/01/24 Procedure(s): XR foot RT min 3V Accession Number(s): [id number] cc: Sade Felix D.P.M.; Isatu CASTRO [place] [address] Patient Name: MARY FUENTES MRN: [id number] date: 1970 Sex: F Assigned Patient Location: [facility] Current Patient Location: [facility] Accession/Order Number: [id number] Exam Date: 10/01/2024 07:45 Report Date: 10/03/2024 [...] M.D. Signed By: 10/03/24927 DD/ 4 TD/TT: Quick Technician: The [address] [address] XRay Report Signed Patient: CRISTY FUENTES MR#: [id number] : 1970 Acct:[id number] Age/Sex: 54 / F ADM Date: 10/01/24 Loc: RAD Attending Dr: Sade Felix D.P.M. Ordering Physician: Sade Felix D.P.M. Date of Service: 10/01/24 Procedure(s): XR ryan t RT min 3V Accession Number(s): [id number] cc: Sade Felix D.P.M.; Isatu CASTRO [address] [address] Patient Name: MARY FUENTES MRN: [id number] date: 1970 Sex: F Assigned Patient Location: RAD Current Patient Loca tion: RAD Accession/Order Numb er: [id number] Exam Date: 07:45 Report Date: 10/03/2024 09:25 At the request of: SADE FELIX Procedure: XR foot R T min 3V PROCEDURE: XR foot R T min 3V HISTORY: Right Foot Pain M79.671 COMPARISON: XR foot right 07/30/2024 FINDINGS: BONES:Prior calcanea l osteotomy and repair. Mechanical fusion of the talocalcaneal and talonavicular joints via lag screws. Osteotomy and wedge placement within the medial cuneiform. Osteotomy and single screw repair of head of first metatarsal. SOFT TISSUES:No visi ble soft tissue swelling. EFFUSION:None visible. OTHER: Negative. X R/XR foot RT min 3V IMPRESSION: 1. Stable surgical changes without evidence of hardware failure or change in alignment. 2. No acute bone abnormality. Electronically authenticated by: ADAM OLIVEROS Date: 10/03/2024 09:25 Dictated By: Adam Oliveros M.D. Signed By: 10/03/24927 DD/ 4 TD/TT: Quick Technician: Reason For Referral Reason Compression stocking s Diagnosis 1 Right foot pain (M79 .671) Referral Organization [facility] Referring Provider First Name Sade Referring Provider Last Name Isidro Referring Provider Speciality Podiatry Referred Provider Specialty Other suppli er Referral Priority Routine Medications Medication SIG (Take, Route, Frequency, Duration) Notes Start Date End Date Status Abilify 10 MG 1 tablet Orally Once a day Active Meloxicam 15 MG 1 tablet Orally Once a day for 30 days 01/03/2025 Active Requip Active Trelegy Ellipta 100-62.5-25 MCG/ACT Inhalation for 30 Days Active Vyvanse 70 MG 1 capsule in the mor belen Oral Once a day for 30 days Acti ve Atenolol 50 MG 1 tablet Orally Once a day for 30 day(s) Active Dexilant 60 MG 1 capsule Orally Once a day Active LaMICtal 25 MG 1 tablet Orally Active Quviviq 50 MG 1 tablet within 30 m inutes of bedtime Orally Once a day Active HYDROcodone-Acetaminophen 5-325 MG 1 tablet as needed Orally every 6 hrs for 7 days 01/03/2025 Active predniSONE 10 MG 3 tablets once a day for 3 days, 2 tablets once a day for 3 days, 1 tablet once a day for 3 days Orally for 9 days 01/03/2025 Active Ajovy 225 MG/1.5ML Subcutaneous for 28 Days Active Social History Tobacco Use: Social History Observation Description Date Details (start date - stop date) Never Smoker NA - NA Tobacco Use/Smoking Question Answer Notes Patient is a nonsmoker Section Notes: Never Smoked Never Smoked Never Smoked Never Smoked Never Smoked Never Smoked Never Smoked Never Smoked Never Smoked Never Smoked Never Smoked Never Smoked Never Smoked Never Smoked Never Smoked Never Smoked Never Smoked Never Smoked Never Smoked Never Smoked Never Smoked Never Smoked Never Smoked Never Smoked Never Smoked Never Smoked Never Smoked Never Smoked Never Smoked Never Smoked Problems Problem Type SNOMED Code ICD Code Onset Dates Problem Status W/U Status Risk Notes Problem 42236404 Essential (primary) hypertension (I10) Active confirmed Problem 224756908 Gastro-esophagea l reflux disease without esophagitis (K21.9) Active confirmed Problem 2930485615910323 Primary osteoarthritis, right ankle and foot (M19.071) Active confirmed Problem 394824099790167 Peroneal tendinitis, right leg (M76.71) Active confirmed Problem 8892218570374936 Posterior tibia l tendinitis, left leg (M76.822) Active confirmed Problem 275616502 Unspecified subluxation of right foot, sequela (S93.301S) Active confirmed Problem Presence of righ t artificial ankle joint (Z96.661) Active confirmed Problem 994571630 Presence of functional implant, unspecified (Z96.9) Active confirmed Problem Gastroesophageal reflux disease (664349846) GERD (gastroesophageal reflux disease) (K21.9) Active confirmed Problem Sleep apnea (05408726) Sleep apnea (G47.30) Active confirmed Problem Bipolar disorder (06358351) Bipolar disorder (F31.9) Active confirmed Problem Generalized anxiety disorder (38821112) JOLEEN (generalized anxiety disorder) (F41.1) Active confirmed Problem Panic disorder (040312564) Panic attacks (F41.0) Active confirmed Problem Iron deficiency anemia (55091810) Anemia, iron deficiency (D50.9) Active confirmed Problem Osteoarthritis of right foot (9919948290256857) Osteoarthritis of right foot (M19.071) Active confirmed Problem Primary osteoarthritis (198171945) Primary osteoarthritis (M19.91) Active confirmed Problem Localized, primary osteoarthritis of the ankle and/or foot (433178375) Osteoarthritis of ankle, right (M19.071) Active confirmed Problem Essential hypertension (22213784) BP (high blood pressure) (I10) Active confirmed Problem 5125867096190042 Arthritis of le ft foot (M19.072) Active confirmed Problem 3001376257788152 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 (M76.821) Active confirmed Vital Signs Heart Rate 66 /min 01/03/2025 Temperature 97 degrees Fahrenheit 01/03/2025 Respiratory Rate 16 /min 06/05/2024 Oximetry 98 % 01/03/2025 Height 64 in 01/03/2025 Weight 174 lbs 01/03/2025 BMI 29.86 kg/m2 01/03/2025 Encounters Encounter Location Date Provider Diagnosis [facility] [address] [place] [address] [place] [address] 04/17/2024 Sade Felix Osteoarthritis of right foot M19.071 ; Peroneal tendinitis, right leg M76.71 and Other instability, right ankle M25.371 [facility] [address] [place] [address] [place] [address] 05/07/2024 Sade Barriedewey Peroneal tendinitis, right leg M76.71 ; Pain due to internal orthopedic prosthetic devices, implants and grafts, initial encounter T84.84XA ; Primary osteoarthritis, right ankle and foot M19.071 ; Pain in right ankle and joints of right foot M25.571 and Strain of muscle(s) and tendon(s) of peroneal muscle group at lower leg level, right leg, initial encounter S86.311A [facility] [address] [place] [address] [place] [address] 12/10/2024 Sade Felix Pain due to bone fixation device, initial encounter T84.84XA ; Posterior tibial tendon dysfunction (PTTD) of right lower extremity M76.821 and Right foot pain M79.671 [facility] [address] [place] [address] [place] [address] 01/03/2025 Sade Felix Posterior tibial tendon dysfunction (PTTD) of right lower extremity M76.821 ; Primary osteoarthritis, right ankle and foot M19.071 and Right foot pain M79.671 [facility] [address] [place] [address] 05/27/2024 Sade Felix [facility] [address] [place] [address] [place] [address] 06/05/2024 Sade Felix Pain due to bone fixation device, initial encounter T84.84XA and Posterior tibial tendon dysfunction (PTTD) of right lower extremity M76.821 [facility] [address] [place] [address] [place] [address] 06/19/2024 Sade Felix Osteoarthritis of right foot M19.071 and Pain due to bone fixation device, initial encounter T84.84XA [facility] [address] [place], [place] [address] [address] 07/09/2024 Sade Felix Osteoarthritis of right foot M19.071 and Unspecified subluxation of right foot, sequela S93.301S [facility] [address] [place] [address] [place] [address] 07/30/2024 Sade Felix Right foot pain M79.671 and Pain due to bone fixation device, initial encounter T84.84XA [facility] [address] [place] [address] [place] [address] 10/01/2024 Sade Felix Pain due to bone fixation device, initial encounter T84.84XA ; Posterior tibial tendon dysfunction (PTTD) of right lower extremity M76.821 ; Osteoarthritis of right foot M19.071 and Right foot pain M79.671 [facility] [address] [place] [address] [place] [address] 04/29/2024 Sade Felix [facility] [address] [place] [address] 05/08/2024 Sade Felix [facility] [address] [place] [address] 05/16/2024 Falguni Duron [facility] [address] [place] [address] [place] [address] 05/30/2024 Sade Felix [facility] [address] [place] [address] [place] [address] 06/05/2024 [facility] [address] [place] [address] [place] [address] 06/18/2024 Falguni Duron [facility] [address] [place] [address] 01/03/2025 Sade Barriedewey Assessments Encounter Date Diagnosis (ICD Code) Assessment Notes Treatment Notes Treatment Clinical Notes Section Notes 04/17/2024 Osteoarthritis of right foot (ICD-10 - M19.071) 04/17/2024 Peroneal tendinitis, right leg (ICD-10 - M76.71) Patient has not responded to nonsurgical treatment over the last 4+ months with physical therapy, NSAIDs including meloxicam and ibuprofen, prednisone taper or ankle bracing. Her pain has been persistent and has not changed in months and appears to be along the peroneal tendons. Alternatively this may be pain associated with the Campbell wedge. I recommended MRI and she will follow-up after that point. I told the patient that visualization of the peroneal tendons may be limited due to titanium implants but should give us a better idea if the peroneal tendons are in fact involved. If not her pain may be secondary to the Campbell wedgeNo new x-rays are needed 06/05/2024 Pain due to bone fixation device, initial encounter (ICD-10 - T84.84XA) Patient is 1 weeks that is post removal of titanium Campbell wedge, bone debridement and grafting. She has been nonweightbearing. She is on Lovenox and has no calf pain or evidence of clot. No signs of infection today. She is taking 2-3 Rociada per day and is requesting refill which was provided today. Her incision is well coapted but sutures were left intact. After verbal consent the incision was dressed with a dry sterile dressing then multiple layers of cast padding were applied taking care to pad all bony prominences and multiple layers of fiberglass cast material were used to apply a short leg cast with the foot and ankle in a neutral position. She should remain nonweightbearing. Continue elevation and use of knee scooter. She will follow-up in 2 weeks for cast removal and simulated weightbearing right foot x-rays 06/05/2024 Posterior tibial tendon dysfunction (PTTD) of right lower extremity (ICD-10 - M76.821) 06/19/2024 Osteoarthritis of right foot (ICD-10 - M19.071) 06/19/2024 Pain due to bone fixation device, initial encounter (ICD-10 - T84.84XA) Presents for her second postoperative visit. Sutures were discontinued and incision is healed. She was transition to cam boot but should remain nonweightbearing. She will follow-up in 3 weeks with repeat weightbearing foot x-rays 07/09/2024 Osteoarthritis of right foot (ICD-10 - M19.071) Patient is doing well overall and she may begin partial protected weightbearing as pain allows. Continue ice elevation and rest. 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 She will follow-up in 3 to 4 weeks with weightbearing foot x-rays 07/09/2024 Unspecified subluxation of right foot, sequela (ICD-10 - S93.301S) 07/30/2024 Right foot pain (ICD-10 - M79.671) 07/30/2024 Pain due to bone fixation device, initial encounter (ICD-10 - T84.84XA) Patient is roughly 10 weeks status post removal of Campbell calcaneal wedge and is doing wonderfully. She is not having any pain and has begun walking around the house a little without the boot and still does not have pain. I recommended to slowly progress out of the cam boot into normal shoes. She will call if she has any issues otherwise we will follow-up in 4 weeks with weightbearing x-rays of the foot. 10/01/2024 Pain due to bone fixation device, initial encounter (ICD-10 - T84.84XA) Patient overall is doing quite well given all that she has been through. I do not believe that she is reached maximal medical benefit. I believe with additional time her gait and function will only improve. I did recommend OTC pain medicine such as ibuprofen and/or Tylenol for pain. She may wear ASO ankle brace at her discretion. She will call with any issues otherwise we will follow-up in 6 months with weightbearing right foot x-rays 10/01/2024 Posterior tibial tendon dysfunction (PTTD) of right lower extremity (ICD-10 - M76.821) 05/07/2024 Peroneal tendinitis, right leg (ICD-10 - M76.71) 05/07/2024 Pain due to internal orthopedic prosthetic devices, implants and grafts, initial encounter (ICD-10 - T84.84XA) 12/10/2024 Pain due to bone fixation device, [...] of right lower extremity (ICD-10 - M76.821) 01/03/2025 Posterior tibial tendon dysfunction (PTTD) of [...] well as stretching exercises. Finally I prescribed Rociada 5/325 1 by mouth every 6 hours [...] 01/03/2025 Right foot pain (ICD-10 - M79.671) 12/10/2024 Right foot pain (ICD-10 - M79.671) 05/07/2024 Primary osteoarthritis, right ankle and foot (ICD-10 - M19.071) 10/01/2024 Osteoarthritis of right foot (ICD-10 - M19.071) 04/17/2024 Other instability, right ankle (ICD-10 - M25.371) Patient had guarding with stress testing therefore recommended MRI to ensure lateral ankles are stable 10/01/2024 Right foot pain (ICD-10 - M79.671) 05/07/2024 Pain in right ankle and joints of right foot (ICD-10 - M25.571) 05/07/2024 Strain of muscle(s) and tendon(s) of peroneal muscle group at lower leg level, right leg, initial encounter (ICD-10 - S86.311A) 05/07/2024 Other The patient is a 54-year-old female, well-known to our practice, who presents for reevaluation of persistent right ankle pain.MRI was reviewed.The patient has failed to improve despite adequate nonsurgical measures including bracing, RICE therapy, NSAIDs, rest, and time.I recommend surgical intervention for definitive treatment. Patient was seen and evaluated. Patient's condition was provided and all questions were answered to her satisfaction. I reviewed x-rays and physical exam findings.Patient would like to undergo reconstructive surgery and I recommended: Right peroneal tendon repair versus transfer and possible removal of Campbell wedge I reviewed the possible complications which include but not limited to infection, wound healing issue, numbness and tingling, bleeding, blood clot, pain, need for additional surgery. Other possible complications include malunion, nonunion, delayed union and painful hardware. Postoperative course was reviewed and the patient will likely be: Patient will be: Possible admission for observation for pain control as patient had difficulty with pain after last surgery Proposed anesthesia: GeneralAnd regional Proposed implants: Artelon, cerament, allografts Plan Of Treatment Pending Test Test Name Order Date XR Foot RT (3 views) * 06/19/2024 XR Foot RT (3 views) * 07/09/2024 XR Foot RT (3 views) * 01/03/2025 CBC AUTO DIFF 05/17/2024 XR foot RT min 3V 10/03/2024 XR foot RT min 3V 01/03/2025 XR foot RT min 3V 08/03/2023 ECG 12 lead 11/03/2023 FL fluoroscopy <1hr NON-READ 05/29/2024 Insurance Providers Payer Name Payer Address Payer Phone Subscriber Number Group Number Insured Name Patient Relationship to Insured Coverage Start Date Coverage End Date [facility] [employer] [address] [place] [address] [id number] [id number] Mary Fuentes Self - patient is the insured [place]ICAID [place] 2[employer] INS [address] [facility] [address] [place], [place] [id number] Mary Fuentes Self - patient is the insured 4 [place] [address] [id number] Mary Fuentes Self - patient is the insured 4 Medical (General) History Medical History History ICD Code Posterior tibial tendon dysfunction (PTT D) of right lower extremity M76.821 Foot pain, right M79.671 Arthritis of left foot M19.072 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 3 Postoperative state Z98.890 Nontraumatic rupture of left posterior t ibial tendon M66.872 Foot pain, left M79.672 Contusion of left foot, initial encounte r S90.32XA Equinus contracture of right ankle M24.5 71 Acquired valgus deformity of right ankle M21.071 Nontraumatic rupture of right posterior tibial tendon M66.871 Ankle impingement syndrome, right M25.87 1 Plantar fascial fibromatosis M72.2 Posterior tibial tendon dysfunction (PTT D) of left lower extremity M76.822 Right ankle pain, unspecified chronicity M25.571 Instability of right ankle joint M25.371 Strain of muscle(s) and tend on(s) of peroneal muscle group at lower leg level, right leg, subsequent encounter S86.311D Gastro-esophageal reflux disease without esophagitis K21.9 Essential (primary) hypertension I10 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 M96.89 migraines Surgical History Surgery Date(Month/Year) Tonsillectomy 02/2021 Carpal Tunnel Release 02/02/2010 Rotator Cuff Repair, Bicep Repair, Bone Spur RT Shoulder 10/2020 ACL LT Knee Tubal Ligation Hysterectomy Bunionectomy Lt Plantar Fascitis Tarsal Tunnel Appendectomy Lt Campbell Calcaneal Osteotomy , Medical Displacement Calcaneal Osteotomy, Cotton Osteotomy, 10/17/2022 (cont) Posterior Tibial Tend on epair/Augmentation, Gastrocnemius Rt Cotton Midfoot, Rt modified brostrom-gourde Lateral Ankle Stabilization (cont) Rt Posterior Tibial T endon Debridement and repair, RT Gastroc, Rt Endoscopic Plantar Faciotomy, RT Peroneal Tenolysis, RT Campbell and Medical di right triple arthrodesis, re moval of deep implanted orthopedic hardware, harvest of distal tibial bone graft, ostectomy of calcaneus 05/12/2023 right peroneal tendon transf er, removal of deep orthopedic hardware calcaneal cuboid joint, intra op stress exam under fluoro 11/13/2023 right incision of calcaneal bone with removal of retained hardware and peroneal tenolysis. 05/27/24 Hospitalization History Reason Date(Month/Year) See above
--- OUTSIDE RECORDS SUMMARY | 2025-04-02 07:44 | XMS_ITS | Encounter Summary ---
Author Organization [facility] Address [address] [place] [address] Care Team Providers Care Anglesmith Helper Name Role Phone Eliceo Gómez DO Primary Care Provider [phone] Eliceo Gómez DO Unavailable [phone] Beata Hernandez Unavailable Juan Damico DO Unavailable [phone] Encounter Details Date Type Department Care Team (Late st Contact Info) Description 04/12/2024 Abstract [facility] [address] [facility] [address] [place] [phone] Eliceo Gómez, DO [address] [facility] [address] [place] [address] Social History Tobacco Use Types Packs/Day Years [...] How often do you attend chur or zoroastrianism services? Never 04/14/2023 Do you belong to any clubs o r organizations such as congregational groups, unions, fraternal or athletic groups, or [...] Date Recorded Patient Health Questionnaire-2 Score 0 03/14/2024 [facility] ional [facility] - Occupational [...] 04/30/2025 4:00 PM EDT Procedure Visit [facility] [address] [place] [phone] Yo Galeas DO [address] [place] [address] 11/20/2025 8:30 AM EST Office Visit [facility] [address] [place] [address] Nelsy Harris APRN-HEALTH UNIT CLERK [address] [place] [address] documented as of this encounter Visit Diagnoses Not on filedocumented in this encounter Care Teams Anglesmith Helper Relationship Specialty Start Date End Date Eliceo Gómez, DO [address] [place] [address] PCP - General Family Medicine 04/04/23 Eliceo Gómez DO [address] [place] [address] PCP - [facility] 05/06/2310/05 Beata Hernandez PA [address] [place] [address] Dietitian Nutrition 08/08/23 05/16/24 Juan Damico DO [address] [place] [address] Referring Physician Obstetrics and Gynecology 05/20/24 documented as of this encounter
--- OUTSIDE RECORDS SUMMARY | 2025-04-02 07:44 | XMS_ITS | Encounter Summary ---
Author Organization [facility] Address [address] [place] [address] Care Team Providers Care Enterprise Integration Developer Name Role Phone Eliceo Gómez DO Primary Care Provider [phone] Eliceo Gómez DO Unavailable [phone] Beata Hernandez Unavailable Juan Damico DO Unavailable [phone] Encounter Details Date Type Department Care Team (Late st Contact Info) Description 03/20/2024 Clinisync Result Encounter [facility] External Department Unsolicited [...] Recorded Patient Health Questionnaire-2 Score 0 03/14/2024 [facility] - Occupational Stress [...] place to sleep or slept in a penitentiary (including now)? No 10/25/2023 Comments No Sex [...] Description 04/30/2025 4:00 PM EDT Procedure Visit [facility] [address] [place] [phone] Yo Galeas DO [address] [place] [address] 11/20/2025 8:30 AM EST Office Visit [facility] [address] [place] [phone] Nelsy Harris, FILE CONVERSION OPERATOR-RAWHIDE BONE ROLLER [address] [place] [address] documented as of this encounter Procedures Procedure Name Priority Date/Time Associated Diagnosis Comments XR FOOT RT MIN 3V 03/20/2024 10: 17 AM EDT documented in this encounter Results * XR FOOT RT MIN 3V (03/20/2024 10:17 AM EDT) Anatomical Region Laterality Modality Other 03/20/2024 10:1 7 AM EDT Narrative 03/20/2024 10:19 AM EDT [address] [address] XRay Report Signed Patient: MARY FUENTES MR#: [id number] : 1970 Acct:[id number] Age/Sex: 53 / F ADM Date: 03/20/24 Loc: EC Attending Dr: Sade Felix D.P.M. Ordering Physician: Sade Felix D.P.M. Date of Service: 03/20/24 Procedure(s): XR foot RT min 3V Accession Number(s): [id number] cc: Sade Felix D.P.M.; Isatu GÓMEZ [place] [address] Patient Name: MARY FUETNES MRN: [id number] date: 1970 Sex: F Assigned Patient Location: Current Patient Location: Accession/Order Number: [id number] Exam Date: 03/20/2024 09:50 Report Date: 03/20/2024 10:17 At the request of: SADE FELIX Procedure: XR foot RT min 3V PROCEDURE: XR foot RT min 3V COMPARISON: 02/28/2024 HISTORY: RIGHT FOOT PAIN FINDINGS: BONES:Stable triple arthrodesis. Anterior and posterior calcaneal osteotomies with anterior wedge spacer. Subtalar fusion. Talonavicular fusion. Osteotomy and wedged spacer medial cuneiform. Remote osteotomy and screw placement first metatarsal head. No acute fracture, dislocation or mechanical failure.. SOFT TISSUES:Negative. No visible soft tissue swelling. EFFUSION:None visible. OTHER: Negative. XR/XR foot RT min 3V IMPRESSION: Stable postsurgical changes Electronically authenticated by: NICKI DACOSTA Date: 03/20/2024 10:17 Dictated By: Nicki Dacosta M.D. Signed By: 03/20/24 1019 DD/ 1017 TD/TT: Framing Carpenter: Procedure Note Radiology, Radiologist, MD - 03/20/[address] [address] XRay Report Signed Patient: MARY FUENTES DMR#: [id number] : 1970Acct:[id number] Age/Sex: 53 / FADM Date: 03/20/24 Loc: EC Attending Dr: Sade Felix D.P.M. Ordering Physician: Sade Felix D.P.M. Date of Service: 03/20/24 Procedure(s): XR foot RT min 3V Accession Number(s): [id number] cc: Sade Felix D.P.M.; Isatu GÓMEZ [place] [id number] Patient Name: MARY FUENTES MRN: [id number] date: 1970 Sex: F Assigned Patient Location: Current Patient Location: Accession/Order Number: [id number] Exam Date: 03/20/2024 09:50 Report Date: 03/20/2024 10:17 At the request of: SADE FELIX Procedure: XR foot RT min 3V PROCEDURE: XR foot RT min 3V COMPARISON: 02/28/2024 HISTORY: RIGHT FOOT PAIN FINDINGS: BONES:Stable triple arthrodesis. Anterior and posterior calcanealosteotomies with anterior wedge spacer. Subtalar fusion. Talonavicular fusion.Osteotomy and wedged spacer medial cuneiform. Remote osteotomy and screw placementfirst metatarsal head. No acute fracture, dislocation or mechanical failure.. SOFT TISSUES:Negative. No visible soft tissue swelling. EFFUSION:None visible. OTHER: Negative. XR/XR foot RT min 3V IMPRESSION: Stable postsurgical changes Electronically authenticated by: NICKI DACOSTA Date: 03/20/2024 10:17 Dictated By: Nicki Dacosta M.D. Signed By:03/20/24 1019 DD/ 1017 TD/TT: Framing Carpenter: us Generic External Data Provider [facility] Final Result documented in this encounter Visit Diagnoses Not on filedocumented in this encounter Care Teams Enterprise Integration Developer Relationship Specialty Start Date End Date Eliceo Gómez DO [address] [place] [address] PCP - General Family Medicine 04/04/23 Eliceo Gómez DO [address] [place] [address] PCP - [facility] 05/06/2310/05 Beata Hernandez PA [address] [place] [address] Dietitian Nutrition 08/08/23 05/16/24 Juan Damico DO [address] [place] [address] Referring Physician Obstetrics and Gynecology 05/20/24 documented as of this encounter
--- OUTSIDE RECORDS SUMMARY | 2025-04-02 07:44 | XMS_ITS | Encounter Summary ---
Author Organization [facility] Address [id number] [place] [address] Care Team Providers Care Underwriting Director Name Role Phone Dalia Morales DO, George R Primary Care Provider + Encounter Details Date Type Department Care Team (Late st Contact Info) Description 12/23/2019 [facility] [address] [facility] [address] [place] [phone] Jenifer Helm, MAKI Social History Tobacco Use Types Packs/Day Years [...] Answer Date Recorded Employment Unknown 04/17/2019 Comments Unknown Sex and Gender Information Value Date Recorded Sex Assigned at Female 07/28/2020 6:39 PM EDT Legal Sex Female 12:08 PM EDT Gender Identity Female 07/28/2020 6:39 PM EDT Sexual Orientation Not on file documented as of this encounter Plan of Treatment Not on file documented as of this encounter Visit Diagnoses Not on filedocumented in this encounter Additional Health Concerns Infection Onset Date Last Indicated Resolved Time COVID-19 Rule-Out 09/22/2020 09/22/2020 09/22/2020 3:17 PM EST documented as of this encounter Care Teams Underwriting Director Relationship Specialty Start Date End Date Eliceo Gómez Jr., [address] [facility] [address] [place] [address] PCP - General Family Medicine 12/11/19 Jenna Butler [address] Consulting Physician Behavioral Health 12/20/23 documented as of this encounter
--- OUTSIDE RECORDS SUMMARY | 2025-04-02 07:44 | XMS_ITS | Encounter Summary ---
Author Organization [facility] Address [address] [facility] [place] [address] Care Team Providers Care President + Publisher Name Role Phone Eliceo Gómez DO Primary Care Provider [phone] Eliceo Gómez DO Unavailable [phone] Juan Damico DO Unavailable [phone] Encounter Details Date Type Department Care Team (Late st Contact Info) Description 05/27/2024 Abstract [facility] [address] [facility] 230 [place] [address] Eliceo Gómez DO [address] [facility] [address] [place] [address] Social History Tobacco Use Types Packs/Day Years [...] you attend chur or mormon services? Never 05/01/2024 Do you belong to any clubs o r organizations such as yarsani groups, unions, fraternal or athletic groups, or [...] Recorded Patient Health Questionnaire-2 Score 0 05/14/2024 [facility]mn Health - Occupational Stress Questionnaire Answer Date [...] slept in a custodial (including now)? No 10/25/2023 Housing Stability Vital Sign Answer Melecio e Recorded In the last 12 months, was t here a time when you were not able to pay the mortgage or rent on time? No 05/01/2024 In the past 12 months, how m any times have you moved where you were living? 1 05/01/2024 At any time in the [facility] were you homeless or living in a custodial (including now)? No 05/01/2024 Comments No Sex [...] Procedure Visit [facility] [address] [place] [phone] Yo Galeas DO [address] [facility] 11/20/2025 8:30 AM EST Office Visit [facility] [address] [place] [phone] Nelsy Harris, BUILDING WRECKER-NUCLEAR CHEMISTRY TECHNICIAN [address] [place] [address] documented as of this encounter Visit Diagnoses Not on filedocumented in this encounter Care Teams President + Publisher Relationship Specialty Start Date End Date Eliceo Gómez DO [address] [place] [address] PCP - General Family Medicine 04/04/23 Eliceo Gómez DO [address] [place] [address] PCP - [facility] 05/06/2310/05 Juan Damico DO [address] [place] [address] Referring Physician Obstetrics and Gynecology 05/20/24 documented as of this encounter
--- OUTSIDE RECORDS SUMMARY | 2025-04-02 07:44 | XMS_ITS | Encounter Summary ---
Author Organization [facility] Address [address] [place] [address] Care Team Providers Care Die Maintenance Technician Name Role Phone Eliceo Gómez DO Primary Care Provider [phone] Eliceo Gómez DO Unavailable [phone] Beata Hernandez Unavailable Juan Damico DO Unavailable Encounter Details Date Type Department Care Team (Late st Contact Info) Description 04/17/2024 Clinisync Result Encounter [facility] External Department Unsolicited [...] often do you attend chur ch or christianity services? Never 04/14/2023 Do you belong to any clubs o r organizations such as mormon groups, unions, fraternal or athletic groups, or [...] Recorded Patient Health Questionnaire-2 Score 0 03/14/2024 [facility] - Occupational Stress Questionnaire Answer Date [...] place to sleep or slept in a correction (including now)? No 10/25/2023 Comments No Sex [...] Description 04/30/2025 4:00 PM EDT Procedure Visit [facility] [address] [place] [phone] Yo Galeas DO [address] [place] [address] 11/20/2025 8:30 AM EST Office Visit [facility] [address] [place] [phone] Nelsy Harris, ADJUSTER-LITIGATION COORDINATOR [address] [place] [address] documented as of this encounter Procedures Procedure Name Priority Date/Time Associated Diagnosis Comments XR FOOT RT MIN 3V 04/17/2024 1:1 7 PM EDT documented in this encounter Results * XR FOOT RT MIN 3V (04/17/2024 1:17 PM EDT) Anatomical Region Laterality Modality Other 04/17/2024 1:17 PM EDT Narrative 04/17/2024 1:20 PM EDT [address] [address] XRay Report Signed Patient: MARY FUENTES MR#: [id number] : 1970 Acct:[id number] Age/Sex: 53 / F ADM Date: 04/17/24 Loc: EC Attending Dr: Sade Felix D.P.M. Ordering Physician: Sade Felix D.P.M. Date of Service: 04/17/24 Procedure(s): XR foot RT min 3V Accession Number(s): [id number] cc: Sade Felix D.P.M.; Isatu GÓMEZ [place] [address] Patient Name: MARY FUENTES MRN: [id number] date: 1970 Sex: F Assigned Patient Location: Current Patient Location: Accession/Order Number: [id number] Exam Date: 04/17/2024 11:50 Report Date: 04/17/2024 13:17 At the request of: SADE FELIX Procedure: XR foot RT min 3V PROCEDURE: XR foot RT min 3V COMPARISON: 03/20/2024 HISTORY: RIGHT FOOT PAIN . FINDINGS: BONES:stable triple arthrodesis. Subtalar and talonavicular joint fusion with no mechanical failure. Anterior calcaneal and medial cuneiform osteotomy with wedged spacer placement. Remote osteotomy and screw placement at of the first metatarsal SOFT TISSUES:Negative. No visible soft tissue swelling. EFFUSION:None visible. OTHER: Negative. XR/XR foot RT min 3V IMPRESSION: Stable triple arthrodesis with no mechanical failure Electronically authenticated by: NICKI DACOSTA Date: 04/17/2024 13:17 Dictated By: Nicki Dacosta M.D. Signed By: 04/17/24 1325 DD/ 1317 TD/TT: Sample Preparation Supervisor: Procedure Note Radiology, Radiologist, MD - 04/17/[address] [address] XRay Report Signed Patient: MARY FUENTES DMR#: [id number] : 1970Acct:[id number] Age/Sex: 53 / FADM Date: 04/17/24 Loc: EC Attending Dr: Sade Felix D.P.M. Ordering Physician: Sade Felix D.P.M. Date of Service: 04/17/24 Procedure(s): XR foot RT min 3V Accession Number(s): [id number] cc: Sade Felix D.P.M.; Isatu GÓMEZ The [address] [address] Patient Name: MARY FUETNES MRN: [id number] date: 1970 Sex: F Assigned Patient Location: Current Patient Location: Accession/Order Number: [id number] Exam Date: 04/17/2024 11:50 Report Date: 04/17/2024 13:17 At the request of: SADE FELIX Procedure: XR foot RT min 3V PROCEDURE: XR foot RT min 3V COMPARISON: 03/20/2024 HISTORY: RIGHT FOOT PAIN . FINDINGS: BONES:stable triple arthrodesis. Subtalar and talonavicular joint fusionwith no mechanical failure. Anterior calcaneal and medial cuneiform osteotomywith wedged spacer placement. Remote osteotomy and screw placement at of thefirst metatarsal SOFT TISSUES:Negative. No visible soft tissue swelling. EFFUSION:None visible. OTHER: Negative. XR/XR foot RT min 3V IMPRESSION: Stable triple arthrodesis with no mechanical failure Electronically authenticated by: NICKI DACOSTA Date: 04/17/2024 13:17 Dictated By: Nicki Dacosta M.D. Signed By:04/17/24 1321 DD/ 1317 TD/TT: Sample Preparation Supervisor: us Generic External Data Provider [facility] Final Result documented in this encounter Visit Diagnoses Not on filedocumented in this encounter Care Teams Die Maintenance Technician Relationship Specialty Start Date End Date Eliceo Gómez, [address] [place] [address] PCP - General Family Medicine 04/04/23 Eliceo Gómez DO [address] [place] [address] PCP - [facility] 05/06/2310/05 Beata Hernandez PA [address] [place] [address] Dietitian Nutrition 08/08/23 05/16/24 Juan Damico, DO [address] [place] [address] Referring Physician Obstetrics and Gynecology 05/20/24 documented as of this encounter
--- OUTSIDE RECORDS SUMMARY | 2025-04-02 07:44 | XMS_ITS | Encounter Summary ---
Author Organization [facility] Address [address] [place] [address] Care Team Providers Care Central Office Repairer Name Role Phone Eliceo Gómez DO Primary Care Provider Eliceo Gómez DO Unavailable [phone] Beata Hernandez Unavailable Juan Damico DO Unavailable [phone] Encounter Details Date Type Department Care Team (Late st Contact Info) Description 04/18/2024 Abstract [facility] [address] [facility] [address] [place] [phone] Eliceo Gómez, DO [address] [facility] [address] [place] [address] Social History Tobacco Use Types Packs/Day Years [...] How often do you attend chur or orthodoxy services? Never 04/14/2023 Do you belong to any clubs o r organizations such as sabianism groups, unions, fraternal or athletic groups, or [...] Recorded Patient Health Questionnaire-2 Score 0 03/14/2024 [facility] Occupat ional Health - Occupational [...] 04/30/2025 4:00 PM EDT Procedure Visit [facility] [address] [place] [phone] Yo Galeas DO [address] [place] [address] 11/20/2025 8:30 AM EST Office Visit [facility] [address] [place] [address] Nelsy Harris APRN-INSIGHTS ANALYST [address] [place] [address] documented as of this encounter Visit Diagnoses Not on filedocumented in this encounter Care Teams Central Office Repairer Relationship Specialty Start Date End Date Eliceo Gómez, DO [address] [place] [address] PCP - General Family Medicine 04/04/23 Eliceo Gómez DO [address] [place] [address] PCP - [facility] 05/06/2310/05 Beata Hernandez PA [address] [place] [address] Dietitian Nutrition 08/08/23 05/16/24 Juan Damico DO [address] [place] [address] Referring Physician Obstetrics and Gynecology 05/20/24 documented as of this encounter
--- OUTSIDE RECORDS SUMMARY | 2025-04-02 07:44 | XMS_ITS | Encounter Summary ---
Author Organization [facility] Address [address] [place] [address] Care Team Providers Care Grinding Wheel Inspector Name Role Phone Eliceo Gómez DO Primary Care Provider [phone] Eliceo Gómez DO Unavailable [phone] Beata Hernandez Unavailable Juan Damico DO Unavailable [phone] Encounter Details Date Type Department Care Team (Late st Contact Info) Description 03/07/2024 Abstract [facility] [address] [facility] [address] [place] [address] Eliceo Gómez, DO [address] [facility] [address] [place] [address] Social History Tobacco Use Types Packs/Day Years [...] How often do you attend chur or scientologist services? Never 04/14/2023 Do you belong to any clubs o r organizations such as methodist groups, unions, fraternal or athletic groups, or [...] Recorded Patient Health Questionnaire-2 Score 0 10/03/2023 [facility] of Occupat ional Health - [...] 04/30/2025 4:00 PM EDT Procedure Visit [facility] [address] [place] [phone] Yo Galeas DO [address] [place] [address] 11/20/2025 8:30 AM EST Office Visit [facility] [address] [place] [address] Nelsy Harris APRN-SUPPORT SERVICES TECH [address] [place] [address] documented as of this encounter Visit Diagnoses Not on filedocumented in this encounter Care Teams Grinding Wheel Inspector Relationship Specialty Start Date End Date Eliceo Gómez, DO [address] [place] [address] PCP - General Family Medicine 04/04/23 Eliceo Gómez DO [address] [place] [address] PCP - [facility] 05/06/2310/05 Beata Hernandez PA [address] [place] [address] Dietitian Nutrition 08/08/23 05/16/24 Juan Damico DO [address] [place] [address] Referring Physician Obstetrics and Gynecology 05/20/24 documented as of this encounter
--- OUTSIDE RECORDS SUMMARY | 2025-04-02 07:44 | XMS_ITS | Encounter Summary ---
Author Organization [facility] Address [address] [place] [address] Care Team Providers Care Qa Consultant Name Role Phone Eliceo Gómez DO Primary Care Provider [phone] Eliceo Gómez DO Unavailable [phone] Beata Hernandez Unavailable Juan Damico DO Unavailable [phone] Encounter Details Date Type Department Care Team (Late st Contact Info) Description 04/15/2024 Abstract [facility] [address] [facility] [address] [place] [phone] Eliceo Gómez, DO [address] [facility] [address] [place] [address] Social History Tobacco Use Types Packs/Day Years [...] any clubs o r organizations such as mandaeism groups, unions, fraternal or athletic groups, or [...] Recorded Patient Health Questionnaire-2 Score 0 03/14/2024 [facility] of Occupat ional Health - Occupational [...] 04/30/2025 4:00 PM EDT Procedure Visit [facility] [address] [place] [phone] Yo Galeas DO [address] [place] [address] 11/20/2025 8:30 AM EST Office Visit [facility] [address] [place] [address] Nelsy Harris APRN-POLICY CANCELLATION CLERK [address] [place] [address] documented as of this encounter Visit Diagnoses Not on filedocumented in this encounter Care Teams Qa Consultant Relationship Specialty Start Date End Date Eliceo Gómez, DO [address] [place] [address] PCP - General Family Medicine 04/04/23 Eliceo Gómez DO [address] [place] [address] PCP - [facility] 05/06/2310/05 Beata Hernandez PA [address] [place] [address] Dietitian Nutrition 08/08/23 05/16/24 Juan Damico DO [address] [place] [address] Referring Physician Obstetrics and Gynecology 05/20/24 documented as of this encounter
--- NOTE | 2025-04-02 07:57 | PM.CN ---
Consult Note: HPI Data of Consult Patient: known to practice within the last 3 years Requesting Physician: Monica Burns NP Primary Care Provider: Isatu CASTRO Consult Narrative Reason for consult: f/u Narrative: Mary Leal a pleasant 54 year old female presents for evaluation of middle and low back pain. Pain today 5/10 aching burning stabbing increased with twisting, pushing, pulling, standing, walking, lifting, bending in the thoracic spine. Pain improved with heat and lidocaine. failed tylenol, baclofen, flexeril and ibuprofen, following with rheumatology for new dx of fibromyalgia as well as OA, started on LDN for FM and chronic pain. continues to engage in provider guided HEP, has completed >6 weeks of therapy without improvement. prior imaging of thoracic and lumbar spine consistent with degenerative changes. recent thoracic MRI consistent with multilevel changes and stenosis at T8-10. pt reports past history of shingles in her 40s. recently underwent bilateral T8,9 T9,10 intercostal nerve block with >90% improvement while anesthetized, preop pain up to 10/10 post op pain 0-1/10, pt noticed no pain with activity while working that day noted improvement in pain > 12 hours. cc:: CC: Monica Burns NP Review of Systems ROS Status of ROS 10 or more systems reviewed and unremarkable except as noted in history and below Musculoskeletal Reports: back pain PFSH [facility] Medical History (Updated 01/30/25 @ 08:05 by Monica Burns NP) Strain of muscle(s) and tendon(s) of peroneal muscle group at lower leg level, right leg, initial encounter ?S86.311A - Strain of muscle(s) and tendon(s) of peroneal muscle group at lower leg level, right leg, initial encounter (ICD-10) Pain in right ankle and joints of right foot ?M25.571 - Pain in right ankle and joints of right foot (ICD-10) Primary osteoarthritis, right ankle and foot ?M19.071 - Primary osteoarthritis, right ankle and foot (ICD-10) Overactive bladder ?N32.81 - Overactive bladder (ICD-10) Insomnia ?G47.00 - Insomnia, unspecified (ICD-10) Bipolar disorder ?F31.9 - Bipolar disorder, unspecified (ICD-10) Gastroparesis ?K31.84 - Gastroparesis (ICD-10) Panic attacks ?F41.0 - Panic disorder [episodic paroxysmal anxiety] (ICD-10) OCD (obsessive compulsive disorder) ?F42.9 - Obsessive-compulsive disorder, unspecified (ICD-10) COVID-19 ?U07.1 - COVID-19 (ICD-10) Migraine ?G43.909 - Migraine, unspecified, not intractable, without status migrainosus (ICD-10) Gastritis ?K29.70 - Gastritis, unspecified, without bleeding (ICD-10) GERD (gastroesophageal reflux disease) ?K21.9 - Gastro-esophageal reflux disease without esophagitis (ICD-10) Peroneal tendinitis ?M76.70 - Peroneal tendinitis, unspecified leg (ICD-10) Posterior tibial tendon dysfunction ?M76.829 - Posterior tibial tendinitis, unspecified leg (ICD-10) Painful orthopaedic hardware ?T84.84XA - Pain due to internal orthopedic prosthetic devices, implants and grafts, initial encounter (ICD-10) Post op infection ?T81.40XA - Infection following a procedure, unspecified, initial encounter (ICD-10) Restless leg syndrome ?G25.81 - Restless legs syndrome (ICD-10) Tibialis anterior tendon tear, traumatic ?S86.219A - Strain of muscle(s) and tendon(s) of anterior muscle group at lower leg level, unspecified leg, initial encounter (ICD-10) Osteoarthritis ?M19.90 - Unspecified osteoarthritis, unspecified site (ICD-10) Back pain ?M54.9 - Dorsalgia, unspecified (ICD-10) Sleep disorder ?G47.9 - Sleep disorder, unspecified (ICD-10) PTSD (post-traumatic stress disorder) ?F43.10 - Post-traumatic stress disorder, unspecified (ICD-10) Depression ?F32.A - Depression, unspecified (ICD-10) Anxiety ?F41.9 - Anxiety disorder, unspecified (ICD-10) Sleep apnea ?G47.30 - Sleep apnea, unspecified (ICD-10) Asthma ?J45.909 - Unspecified asthma, uncomplicated (ICD-10) Constipation ?K59.00 - Constipation, unspecified (ICD-10) High cholesterol ?E78.00 - Pure hypercholesterolemia, unspecified (ICD-10) Hypertension ?I10 - Essential (primary) hypertension (ICD-10) Female rectocele with enterocele ?N81.6 - Rectocele (ICD-10) ?K46.9 - Unspecified abdominal hernia without obstruction or gangrene (ICD-10) 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 - Other specified functional intestinal disorders (ICD-10) Surgical History S/P foot surgery ?Z98.890 - Other specified postprocedural states (ICD-10) H/O cervical spine surgery ?Z98.890 - Other specified postprocedural states (ICD-10) S/P placement of nerve stimulator (01/02/24) ?Z96.82 - Presence of neurostimulator (ICD-10) S/P placement of nerve stimulator ?Z96.82 - Presence of neurostimulator (ICD-10) History of ankle surgery (11/13/23) ?Z98.890 - Other specified postprocedural states (ICD-10) H/O tooth extraction ?K08.409 - Partial loss of teeth, unspecified cause, unspecified class (ICD-10) H/O foot surgery (05/12/23) ?Z98.890 - Other specified postprocedural states (ICD-10) History of appendectomy (1987) ?Z90.49 - Acquired absence of other specified parts of digestive tract (ICD-10) History of colonoscopy ?Z98.890 - Other specified postprocedural states (ICD-10) History of colectomy (03/2022) ?Z90.49 - Acquired absence of other specified parts of digestive tract (ICD-10) History of tonsillectomy and adenoidectomy ?Z90.89 - Acquired absence of other organs (ICD-10) History of hysterectomy (2014) ?Z90.710 - Acquired absence of both cervix and uterus (ICD-10) History of arthroplasty of right ankle ?Z98.890 - Other specified postprocedural states (ICD-10) History of repair of rotator cuff ?Z98.890 - Other specified postprocedural states (ICD-10) S/P ankle ligament repair (2020) ?Z98.890 - Other specified postprocedural states (ICD-10) Family History Other Family history of Alzheimer's disease Family history of coronary artery disease Family history of heart disease Family history of hypertension Social History Within the past year, how often did you have a drink containing alcohol: never Score interpretation: A score less than 3 is consistent with normal alcohol consumption. Smoking status: Never smoker Non-prescribed substance use: denies use Previous occupational history: [employer], [employer] [facility] [employer] Highest level of school completed/degree received: some college, no degree Little interest or pleasure in doing things: not at all Feeling down, depressed, or hopeless: not at all Feel stressed/tense/nervous/anxious/difficulty sleeping: only a little Due to disability, difficulty making decisions: No Do you think of yourself as: straight/heterosexual Gender Identity: female Meds Home Medications and Allergies Home Medications ?Medication ?Instructions ?Recorded ?Confirmed ?Type ropinirole 1 mg tablet 1 mg PO BID 05/04/23 03/17/25 History fluticasone fur. 100 mcg-umeclid 1 inh inhalation Q24H 11/03/23 03/17/25 History 62.5 mcg-vilant 25 mcg inhalat.powder (Trelegy Ellipta) aripiprazole 300 mg suspension, 300 mg IM Q28D 05/17/24 03/17/25 History extended rel. intramuscular syringe (Abilirupal Maintena) atenolol 50 mg tablet 50 mg PO Q24H 05/17/24 03/17/25 History losartan 25 mg tablet 25 mg PO DAILY 05/17/24 03/17/25 History omeprazole 40 mg capsule,delayed 40 mg PO DAILY 05/17/24 03/17/25 History release daridorexant 50 mg tablet (Quviviq) mg PO .hs 08/01/24 History galcanezumab-gnlm 120 mg/mL mg subcut 12/26/24 History subcutaneous pen injector (Emgality Pen) lisdexamfetamine 60 mg capsule 60 mg PO DAILY 12/26/24 03/17/25 History (Vyvanse) naltrexone 1.5 mg capsule mg PO 12/26/24 History Allergies Allergy/AdvReac Type Severity Reaction Status Date / Time risperidone (From Risperdal) AdvReac Mild breast Verified 03/17/25 10:33 nipples leak Exam Constitutional Documenting provider has reviewed patient's vital signs: yes Common normals: no apparent distress, oriented x3, healthy appearing, alert and well nourished General appearance: cooperative HENMT Common normals: normocephalic, hearing grossly normal bilaterally and moist oral mucous membranes Head and scalp: normocephalic Eye Common normals: PERRL Pupil: PERRL Neck & C-Spine Common normals: full ROM General: normal visual inspection Chest Common normals: inspection of chest normal Respiratory Common normals: normal respiratory effort, no retractions and no use of accessory muscles Back & Pelvis Thoracic spine/upper back: ROM limited, pain with ROM and thoracic spinal tenderness Lumbar spine/lower back: lumbar ROM normal; no pain with ROM, no lumbar spinal tenderness and no paraspinal muscle tenderness Sacroiliac joints: SI joints normal Other: bilateral negative arcelia(patricks), gaenslens, thigh thrust, compression test sensation intact BLE strength 5/5 in BLE thoracic tenderness noted to bilateral T7-12 greater on the left than right. notable sensitivity and hyperalgesia following T7-10 dermatomal pattern to the left>right Neuro Common normals: oriented x3, CN's II-XII intact bilaterally, moves all extremities, no focal motor deficits and deep tendon reflexes 2+ bilaterally Sensorium/orientation: alert Motor exam: strength 5/5 throughout and no movement abnormalities noted Psych Common normals: mental status grossly normal, thought process normal, cooperative, affect normal, speech normal and activity/motor behavior normal Speech: normal speech Thought process: normal thought process Results Additional Findings Additional findings: If on a controlled substance or opioids, I have checked an [place] report on this patient and there are no aberrancies noted in the prescribing history.??If on a controlled substance or opioid a drug screen was completed and reviewed within the last year, and if there has not been a drug screen completed we ordered one today to monitor higher risk, state monitored pain medication use. As part of providing excellent, safe, comprehensive care, the following was completed at our patient's visit: 1. A medication reconciliation and review to ensure accurate knowledge of current/active medications, including asking our patients to inform us about any hpnx-nnw-woimkwn medications or herbal remedies/nutritional supplements/alternative remedies. 2. A review to specifically ensure our patients have had annual screening for screening for depression, screening for tobacco use, and screening for unhealthy alcohol use. For concerning screenings had a discussion with the patient, provided patient education, and recommended follow-up with primary care provider when appropriate. If patient noted with a risk of falling, they received education on strength, gait, and balance training to prevent future risk of falling. Portions of this note may have been carried over from the previous visit and updated as appropriate. Please note this office utilizes paper charting in addition to the electronic medical record. A list of current medications, vitals, and PMH is available there as the clinical staff outside of myself do not have access to [employer] charting during the clinic day operations. As part of providing quality comprehensive care the current medications, vitals, and PMH were reviewed in the paper chart. Assessment and Plan Assessment and Plan (1) Intercostal neuralgia: (2) Thoracic radiculopathy: (3) Thoracic back pain: (4) Bilateral sacroiliitis: (5) Myofascial pain: (6) Lumbar spondylosis: Plan 54 year old female with longstanding hx of middle and low back pain unresponsive to >6 weeks of provider guided HEP, heat, ice, tylenol, and NSAIDs. prior xray imaging of thoracic and lumbar spine consistent with degenerative changes. proceed with left then rightl T8,9 T9,10 intercostal nerve RFA with 10mg po valium 30-60mins prior to procedure continue lidocaine patch 5% 12 hours on 12 hours off to affected area declining alternative muscle relaxer, continue meloxicam as ordered continue HEP as tolerated f/u 1 month after RFAs complete
== END 2025-04-02 07:39 | disposition home or self-care (01) ==
PROVIDERS: PCP Family Medicine; Visit Provider Nurse Practitioner
DX: G58.0 Intercostal neuropathy (principal); M54.6 Pain in thoracic spine; M46.1 Sacroiliitis, not elsewhere classified; M79.18 Myalgia, other site; M47.816 Spondylosis without myelopathy or radiculopathy, lumbar region
CPT/HCPCS: G0463

== ENCOUNTER 2025-04-14 07:22 | Day surgery (SDC) | payer OTHER, MEDICARE, MEDICAID, SELFPAY ==
--- OUTSIDE RECORDS SUMMARY | 2024-12-10 07:30 | XMS_ITS ---
Author Organization [facility] in [place] Address [address] [place] [address] Care Team Providers Care Flying Shear Operator Name Role Phone Rigo Grant DO Primary Care Provider Jacob Ahuja Unavailable [phone] REASON FOR VISIT rt foot Medications Medication [...] Encounters Encounter Location Date Provider Diagnosis [facility] (PODIATRY) [address] [place] [address] [place] [address] 12/10/2024 Jacob Felix Pain due to bone [...] Mary FUENTES DDOB:[birth year] (54 yo F)Acc No.[id number]:12/10/2024 Follow Up Patient: Mary ROSADO Provider: Leo Felix DPM, MS :1970 A ge:54 Y S ex:Female Date:12/10/2024 Address:[address] [place] [address] [address] [id number] Pcp:Rigo Grant, DO Check In:11:31 [...] M usculoskeletal: Bone/Joint Symptoms d enies. C penitentiary Pain d enies.?Leg cramps d enies. N [...] bedtime Orally Once a day Requip Trelegy Ellipta(Vrgfdqplylx-Yeoaxsikl-Nxtggz) 100-62.5-25 MCG/ACT Aerosol Powder Breath Activated Inhalation [...] Once a day Taking Requip Taking Trelegy Ellipta(Mlgbbztybmt-Yudzvlluf-Lwdmhu) 100-62.5-25 MCG/ACT Aerosol Powder Breath Activated Inhalation [...] 12/10/2024 Generated for Philippe ardon/Osmin/Nilay on: 0 04/14/2025 07:27 AM EDT History and Physical Notes * [...]
--- OUTSIDE RECORDS SUMMARY | 2024-12-12 10:47 | XMS_ITS | Continuity of Care Document ---
Author Organization [facility] Address [address] [place] [address] Phone Care Team Providers Care Automatic Glove Former Name Role Phone Litzy HILL, Anibal Unavailable [...] Prophylaxis Adult Nutrit Couns For Control Of [place] Dis Nov Oral Hygiene Instruction Oral Hygiene Instruction Zekpkvhdd-vtadzujelb-hhrg Additional Oct Bitewig-single Film Limited Oral Eval Bitewings Four Films Intraoral-periapical 1st Film Prophylaxis Adult Moderate Risk Nutrit Couns For Control Of [place] Dis Jan Oral Hygiene Instruction Nutrit Couns For Control Of [place] Dis Sep No Charge Limited Oral Eval Extract; Erupted Th/exposted Rt - 021 Azfehdldo-oxrfpvfqai-jpiz Additional Aug Nutrit Couns For Control Of [place] Dis Aug Pfizer COVID Vaccine Admin Dose [...] Diagnoses Date Provider Providers Copied on Encounter [facility], [address] [place] [address], [id number], [place] tel:[phone] Dental Clinic risa (chief complaint) Encounter for screening for dental disorders Litzy HILL Anibal. [address] [place] [address], [id number] , [place]. tel:[phone] [facility], [address] [place] [address], [id number], [place] tel:[phone] Dental Clinic risa (chief complaint) Body mass index [BMI] 25.0-25.9, adultEncounter for screening for dental disorders Litzy HILL Anibal. [address] [place] [address], [id number] , [place]. tel:[phone] [facility], [address] [place] [address], [id number], [place] tel:[phone] Dental Clinic dental new (chief complaint) Encounter for screening for dental disorders Litzy HILL Anibal. [address] [place] [address], [id number] , [place]. tel:[phone] [facility], [address] [place] [address], [id number], [place] tel:[phone] Dental Clinic DL (chief complaint) Encounter for screening for dental disorders Dolores HILL Prosper. [address] [place] [address], [address], [place]. tel:[phone] [facility], [address] [place] [address], [id number], [place] tel:[phone] Dental Clinic PRO (chief complaint) Encounter for screening for dental disorders Catrachita Rutledge. . tel:+ [phone] [facility], [address], [place], [id number], [place] tel:[phone] Dental Clinic filling (chief complaint) Encounter for screening for dental disorders Abdiel Mac. [address] [place], [address], [place]. tel:+ [phone] [facility], [address], [place], [id number], [place] tel:[phone] Dental Clinic filling (chief complaint) Encounter for screening for dental disorders Abdiel Mac. [address] [place], [address], [place]. tel:+ [phone] [facility], [address] [place] [address], [id number], [place] tel:[phone] COVID ECHD No Information Regina Camacho. [address], [place], [id number] , [place]. tel: [phone] [facility], [address] [place] [address], [id number], [place] tel:[phone] Dental Clinic Ext. (chief complaint) Encounter for screening for dental disorders Abdiel Mac. [address] [place], [address], [place]. tel:+ [phone] [facility], [address], [place], [id number], [place] tel:[phone] COVID ECHD Encounter for screening for dental disorders Regina Camacho. [address], [place], [id number] , [place]. tel:+ [phone] [facility], [address], [place], [id number], [place] tel:[phone] Dental Clinic Encounter for screening for dental disorders Abdiel Mac. [address] [place], [address], [place]. tel:[phone] [facility], [address], [place], [id number], [place] tel:[phone] Dental Clinic dental limited (chief complaint) Encounter for screening for dental disorders Yogesh Arreaga. [address], [place], [id number] , [place]. tel:[phone] [facility], [address] [place] [address], [id number], [place] tel:[phone] Dental Clinic Dental New (chief complaint) Encounter for screening for dental disorders Yogesh Arreaga. [address], [place], [id number] , [place]. tel:[phone] [facility], [address] [place] [address], [id number], [place] tel:[phone] Dental Clinic Encounter for screening for dental disorders Yogesh Arreaga. [address], [place], [id number] , [place]. tel:[phone] [facility], [address] [place] [address], [id number], [place] tel:[phone] [facility] No Information Visci DO Chuy. [address], [place], [id number] , [place]. [phone] Family History Family Member Type Diagnosis Age At Onset Father Problem (finding) hypertension Mother Problem (finding) dementia Father Problem (finding) atrial fibrillation Immunizations Vaccine Date Status Comments Pfizer COVID administered Source: New Imm unization Record Pfizer COVID administered Source: New Imm unization Record Payers Payer name Insurance type Covered republican ID Authorsofiaa lauro(s) D [facility] Dental Dual Elig [id number] D Medicaid Crossover [id number] [place] [facility] [employer]FC 190 [id number] Medicaid Wrap - [facility] [id number] [place] [facility] 190 [id number] Social History Type Description Quantity Date Captured [...]
--- OUTSIDE RECORDS SUMMARY | 2025-01-03 04:45 | XMS_ITS ---
Author Organization [facility] in [place] Address [address] [place] [address] Care Team Providers Care Drafter Heating And Ventilating Name Role Phone Rigo Grant DO Primary Care Provider Jacob Ahuja Unavailable [phone] Allergies No Known Allergies Reason For Referral Reason Compression stocking s Diagnosis 1 Right foot pain (M79 .671) Referral Organization [facility] (PODIATRY) Referring Provider First Name Jacob Referring [...] Encounters Encounter Location Date Provider Diagnosis [facility] (PODIATRY) [address] [place] [address] [place] [address] 01/03/2025 Jacob [facility] Posterior tibial tendon dysfunction (PTTD) of [...] well as stretching exercises. Finally I prescribed Rollingstone 5/325 1 by mouth every 6 hours [...] well as stretching exercises. Finally I prescribed Rollingstone 5/325 1 by mouth every 6 hours [...] Mary FUENTES DDOB:[birth year] (54 yo F)Acc No.[id number]:01/03/2025 Follow Up Patient: Siria CUEVA Mary Kenny Provider: Leo Felix DPM MS :1970 A ge:54 Y S ex:Female Date:01/03/2025 Address:[address] [place] [address] [facility] Pcp:Rigo Grant, DO Check In:08:45 AM ESTCheck [...] bedtime Orally Once a day Requip Trelegy Ellipta(Qurlnzxeevk-Lvonmcgei-Qwvyro) 100-62.5-25 MCG/ACT Aerosol Powder Breath Activated Inhalation [...] Once a day Taking Requip Taking Trelegy Ellipta(Fxeidmyzrqb-Magkexbmn-Lmrykh) 100-62.5-25 MCG/ACT Aerosol Powder Breath Activated Inhalation [...] 01/03/2025 Generated for Philippe ardon/Osmin/Stephanieitting on: 0 04/14/2025 07:26 AM EDT History and Physical Notes * [...]
--- OUTSIDE RECORDS SUMMARY | 2025-01-03 05:38 | XMS_ITS ---
Author Organization [facility] in [place] Address [address] [place] [address] Care Team Providers Care Service Tech/Welder Name Role Phone Rudy LOAIZARigo Primary Care Provider Jacob Ahuja [phone] REASON FOR VISIT pain medication Medications Medication SIG (Take, Route, Frequency, Duration) Notes Start Date End Date Status HYDROcodone-Acetaminophen 5-325 MG 1 tablet as needed Orally every 6 hrs for 7 days 01/03/2025 Active Encounters Encounter Location Date Provider Diagnosis [facility] (PODIATRY) [address] [place] [address] [place] [address] 01/03/2025 Jacob Felix Plan Of Treatment Medication Medication Name Sig Start Date Stop Date Notes HYDROcodone-Acetaminophen 5- 325 MG 1 tablet as needed Orally every 6 hrs for 7 days 01/03/2025 Progress Notes * Mary FUENTES DDOB:[birth year] (54 yo F)Acc No.[id number]:01/03/2025 Patient: Siria Mary CUEVA :1970 A ge:54 Y S ex:Female Address:[place] [address] * Refills Start HYDROcodone-Acetaminophen Tablet, 5-325 MG, Orally, 28 Tablet, 1 tablet as needed, every 6 hrs, 7 days, Refills=0 * true * Date: Generated for Printi ng/Faxing/eTransmitting on: 0 04/14/2025 07:26 AM EDT
--- OUTSIDE RECORDS SUMMARY | 2025-04-14 07:26 | XMS_ITS | Encounter Summary ---
Author Organization [facility] Address [address] [place] [address] Care Team Providers Care Manager Sign Name Role Phone Eliceo Gómez DO Primary Care Provider [phone] Eliceo Gómez DO Unavailable [phone] Juan Damico DO Unavailable [phone] Encounter Details Date Type Department Care Team (Late st Contact Info) Description 09/16/2024 Abstract [facility] [address] [facility] [address] [place] [address] Eliceo Gómez DO [address] [facility] [address] [place] [address] Social History Tobacco Use Types Packs/Day Years [...] you attend chur or yarsani services? Never 05/01/2024 Do you belong to [...] Recorded Patient Health Questionnaire-2 Score 0 07/11/2024 [facility] of Occupat ionne Health - Occupational Stress Questionnaire Answer Date [...] any time in the past 12 m [facility], were you homeless or living in a [...] Care Team (Late st Contact Info) Description 11/20/2025 8:30 AM EST Office Visit [facility] [address] [place] [address] Nelsy Harris, ADMINISTRATIVE REPRESENTATIVE-MEDICAL BILLING AND CODING SPECIALIST [address] [place] [address] documented as of this encounter Visit Diagnoses Not on filedocumented in this encounter Care Teams Manager Sign Relationship Specialty Start Date End Date Eliceo Gómez, DO [address] [place] [address] PCP - General Family Medicine 04/04/23 Eliceo Gómez, DO [address] [place] [address] PCP - [facility] 05/06/2310/05 Juan Damico, DO [address] [place] [address] Referring Physician Obstetrics and Gynecology 05/20/24 documented as of this encounter
--- OUTSIDE RECORDS SUMMARY | 2025-04-14 07:26 | XMS_ITS | Encounter Summary ---
Author Organization [facility] Address [address] [facility] [place] [address] Care Team Providers Care Fire Pot Operator Name Role Phone Eliceo Gómez DO Primary Care Provider [phone] Eliceo Gómez DO Unavailable [phone] Juan Damico DO Unavailable [phone] Encounter Details Date Type Department Care Team (Late st Contact Info) Description 08/28/2024 Abstract [facility] [address] [facility] 230 [place] [address] Eliceo Gómez DO [address] [facility] 230 [place] [address] Social History Tobacco Use Types Packs/Day Years [...] How often do you attend chur or cheondoism services? Never 05/01/2024 Do you belong to [...] Recorded Patient Health Questionnaire-2 Score 0 07/11/2024 [facility] of Occupat ionil Health - Occupational Stress Questionnaire Answer Date [...] any time in the past 12 m [facility], were you homeless or living in a [...] DERM [address] [place] [address] Nelsy Harris, FARMWORKER-DATA REDUCTION TECHNICIAN [address] [place] [address] documented as of this encounter Visit Diagnoses Not on filedocumented in this encounter Care Teams Fire Pot Operator Relationship Specialty Start Date End Date Eliceo Gómez, DO [address] [place] [address] PCP - General Family Medicine 04/04/23 Eliceo Gómez, DO [address] [place] [address] PCP - [facility] 05/06/2310/05 Juan Damico, DO [address] [place] [address] Referring Physician Obstetrics and Gynecology 05/20/24 documented as of this encounter
--- OUTSIDE RECORDS SUMMARY | 2025-04-14 07:26 | XMS_ITS | Encounter Summary ---
Author Organization [facility] Address [address] [place] [address] Care Team Providers Care Special Education Associate Name Role Phone Eliceo Gómez DO Primary Care Provider [phone] Eliceo Gómez DO Unavailable [phone] Beata Hernandez Unavailable Juan Damico DO Unavailable [phone] Encounter Details Date Type Department Care Team (Late st Contact Info) Description 11/24/2023 Abstract [facility] [address] [facility] [address] [place] [phone] Eliceo Gómez, DO [address] [facility] [address] [place] [address] Social History Tobacco Use Types Packs/Day Years [...] How often do you attend chur or caodaism services? Never 04/14/2023 Do you belong to [...] Recorded Patient Health Questionnaire-2 Score 0 10/03/2023 [facility] of Occupat ional Health - [...] money to buy more. Never true 04/14/20 Within the past 12 months, t he [...] DERM [address] [place] [address] Nelsy Harris, AUTOMATION QA LEAD-CAR BUILDER [address] [place], [place] [id number] documented as of this encounter Visit Diagnoses Not on filedocumented in this encounter Care Teams Special Education Associate Relationship Specialty Start Date End Date Eliceo Gómez DO [address] [place] [address] PCP - General Family Medicine 04/04/23 Eliceo Gómez DO [address] [place] [address] [facility] 05/06/2310/05 Beata Hernandez PA [address] [place] [address] Dietitian Nutrition 08/08/23 05/16/24 Juan Damico, [address] [place] [address] Referring Physician Obstetrics and Gynecology 05/20/24 documented as of this encounter
--- OUTSIDE RECORDS SUMMARY | 2025-04-14 07:26 | XMS_ITS | Encounter Summary ---
Author Organization [facility] Address [address] [place] [address] Care Team Providers Care Supervisor Train Operations Name Role Phone Eliceo Gómez DO Primary Care Provider [phone] Eliceo Gómez DO Unavailable [phone] Beata Hernandez Unavailable Juan Damico DO Unavailable [phone] Encounter Details Date Type Department Care Team [...] often do you attend chur ch or oriental orthodox services? Never 04/14/2023 Do you belong to [...] Health Questionnaire-2 Score 0 10/03/2023 [facility] - Occupational Stress Questionnaire Answer Date Recorded [...] in a retirement (including now)? No 10/25/2023 Comments No Sex [...] DERM [address] [place] [address] Nelsy Harris APRN-MANAGER [employer] [address] [place] [address] documented as of this encounter Procedures Procedure Name Priority Date/Time Associated Diagnosis Comments XR LUMBAR SPINE 6V W BENDING 12/14/2023 1:52 PM EST documented in this encounter Results * XR LUMBAR SPINE 6V W BENDING (12/14/2023 1:52 PM EST) Anatomical Region Laterality Modality Other 12/14/2023 1:52 PM EST Narrative 12/14/2023 1:54 PM EST The [address] [address] XRay Report Signed Patient: ELSIE FUENTES MR#: [id number] : 1970 Acct:[id number] Age/Sex: 53 / F ADM Date: 12/14/23 Loc: [facility] Attending Dr: Ace Ahumada M.D. Ordering Physician: Ace Ahumada M.D. Date of Service: 12/14/23 Procedure(s): XR lumbar spine 6V w bending Accession Number(s): [id number] cc: Ace Ahumada M.D.; Isatu GÓMEZ The [place] [address] Patient Name: ELSIE FUNETES MRN: [id number] date: 1970 Sex: F Assigned Patient Location: [facility] Current Patient Location: [facility] Accession/Order Number: [id number] Exam Date: 12/14/2023 13:00 Report Date: 12/14/2023 [...] Dacosta M.D. Signed By: 12/14/23 1354 DD/ 1352 TD/TT: Catch Basin Cleaner: Procedure Note Radiology, Radiologist, MD - 12/14/2023 [place] [address] XRay Report Signed Patient: ELSIE FUENTES DMR#: [id number] : 1970Acct:[id number] Age/Sex: 53 / FADM Date: 12/14/23 Loc: RAD Attending Dr: Ace Ahumada M.D. Ordering Physician: Ace Ahumada M.D. Date of Service: 12/14/23 Procedure(s): XR lumbar spine 6V w bending Accession Number(s): [id number] cc: Ace Ahumada M.D.; Isatu GÓMEZ [place] [id number] Patient Name: ELSIE FUENTES MRN: [id number] date: 1970 Sex: F Assigned Patient Location: [facility] Current Patient Location: [facility] Accession/Order Number: [id number] Exam Date: 12/14/2023 13:00 Report Date: 12/14/2023 [...] M.D. Signed By:12/14/23 1354 DD/ 1352 TD/TT: Catch Basin Cleaner: Generic External Data Provider [facility] Final Result documented in this encounter Visit Diagnoses Not on filedocumented in this encounter Care Teams Supervisor Train Operations Relationship Specialty Start Date End Date Eliceo Gómez DO [address] [facility] [address] [place] [id number] PCP - General Family Medicine 04/04/23 Eliceo Gómez DO [address] [place] [address] PCP - [facility] 05/06/2310/05 Beata Hernandez PA [address] [place] [address] Dietitian Nutrition 08/08/23 05/16/24 Juan Damico DO [address] [place] [address] Referring Physician Obstetrics and Gynecology 05/20/24 documented as of this encounter
--- OUTSIDE RECORDS SUMMARY | 2025-04-14 07:26 | XMS_ITS | Encounter Summary ---
Author Organization [facility] Address [address] [place] [address] Care Team Providers Care Senior Research Scientist Name Role Phone HernandezEliceo randolph Asiya DO Primary Care Provider [phone] Eliceo Gómez DO Unavailable [phone] Juan Damico DO Unavailable [phone] Reason for Visit * Reason Comments Med Refill Encounter Details Date Type Department Care Team (Late st Contact Info) Description 04/13/2025 Refill [facility] [address] [facility] [address] [place] [address] Hyacinth King NP [address] [facility] [address] [place] [address] Mild intermittent asthma, unspecified whether complicated (CMS/HCC) Social History Tobacco Use Types Packs/Day Years [...] How often do you attend chur or yarsanism services? Never 05/01/2024 Do you belong to any clubs o r organizations such as orthodoxy groups, unions, fraternal or athletic groups, or [...] Recorded Patient Health Questionnaire-2 Score 0 01/20/2025 [facility] of Occupat ional Health - Occupational Stress [...] DERM [address] [place] [address] Nelsy Harris APRN-INTAKE MANAGER [address] [place] [address] documented as of this encounter Visit Diagnoses Diagnosis Mild intermittent asthma, unspecified whether complicated (CMS/HCC) documented in this encounter Additional Health Concerns Assessment Noted Time PHQ-9 Depression Total Score: 0 01/21/20 25 1:00 PM EDT documented as of this encounter Care Teams Senior Research Scientist Relationship Specialty Start Date End Date Eliceo Gómez, DO [address] [place] [address] PCP - General Family Medicine 04/04/23 Eliceo Gómez DO [address] [place] [address] PCP - [facility] 05/06/2310/05 Juan Damico DO [address] [place] [address] Referring Physician Obstetrics and Gynecology 05/20/24 documented as of this encounter
--- OUTSIDE RECORDS SUMMARY | 2025-04-14 07:26 | XMS_ITS | Encounter Summary ---
Author Organization [employer] Address [facility]-[id number] [address] [place] [address] Care Team Providers Care Research Aide Name Role Phone Dalia Morales DO, George R Primary Care Provider + Reason for Visit * Reason Onset Date Comments Med Refill 11/04/2020 Encounter Details Date Type Department Care Team (Late st Contact Info) Description 11/04/2020 Refill [facility] [address] [place] [phone] Demi Machado Chronic mixed headache syndrome (Primary [...] daily. Please send med refill script to [facility] in [place] on [address] [facility] per patient's chart/request. Please call back and advise, callback#: [phone]. * Telephone Encounter - Jessi Franklin RN - 11/04/2020 11:41 AM EST Looks like script was pended/routed on 10/21/2020 per refill encounter dated 10/19/2020- not sure what happened to it after that. Indomethacin 75 mg BID script pended and re-routed to provider for approval and signature. Jessi Franklin RN 11/04/20 5501 documented in this encounter Plan of Treatment Upcoming Encounters Date Type Department Care Team (Late st Contact Info) Description 05/07/2025 7:30 AM EDT Office Visit [facility], A Department of [address] [phone] Soraida Gama PA 57[address] [facility] [address] [place] [address] documented as of this encounter Visit Diagnoses Diagnosis Chronic mixed headache syndrome- Primary Other headache syndromes documented in this encounter Care Teams Research Aide Relationship Specialty Start Date End Date Eliceo Gómez Jr., DO [address] [facility], [address] [place] [address] PCP - General Family Medicine 12/11/19 Jenna Butler [address] Consulting Physician Behavioral Health 12/20/23 documented as of this encounter
--- OUTSIDE RECORDS SUMMARY | 2025-04-14 07:26 | XMS_ITS | Encounter Summary ---
Author Organization [employer] Address [facility] [id number] [address] [place] [address] Care Team Providers Care Director Of Audiology Name Role Phone Dalia Morales DO, George R Primary Care Provider + Encounter Details Date Type Department Care Team (Latest Contact Info) Description 04/10/2025 Travel Social History Tobacco Use Types Packs/Day Years [...] Description 05/07/2025 7:30 AM EDT Office Visit [facility], A Department of [facility] [address] [facility] [address] [place] [address] Soraida Gama PA 5700 [facility] 103 [place] [address] documented as of this encounter Visit Diagnoses Not on filedocumented in this encounter Additional Health Concerns Assessment Noted Time PHQ-9 Depression Total Score: 0 10/23/20 23 1:26 PM EST documented as of this encounter Care Teams Director Of Audiology Relationship Specialty Start Date End Date Eliceo Gómez Jr., [address] [place] [address], [address] [address] PCP - General Family Medicine 12/11/19 Jenna Butler [address] Consulting Physician Behavioral Health 12/20/23 documented as of this encounter
--- OUTSIDE RECORDS SUMMARY | 2025-04-14 07:26 | XMS_ITS | Encounter Summary ---
Author Organization [facility] Address [address] [facility] [place] [address] Care Team Providers Care Component Inspector Name Role Phone Eliceo Gómez DO Primary Care Provider [phone] Eliceo Gómez DO Unavailable [phone] Juan Damico DO Unavailable [phone] Encounter Details Date Type Department Care Team (Late st Contact Info) Description 08/05/2024 Abstract [facility] 230 [address] [facility] 230 [place] [address] Eliceo Gómez DO [address] [facility] 230 [place] [address] Social History Tobacco Use Types Packs/Day Years [...] How often do you attend chur or advent services? Never 05/01/2024 Do you belong to [...] Recorded Patient Health Questionnaire-2 Score 0 07/11/2024 [facility] of Occupat ionny Health - Occupational Stress Questionnaire Answer Date [...] any time in the past 12 m [facility], were you homeless or living in [...] DERM [address] [place] [address] Nelsy Harris, MAGAZINE REPAIRER-TREE INSPECTOR [address] [place] [address] documented as of this encounter Visit Diagnoses Not on filedocumented in this encounter Care Teams Component Inspector Relationship Specialty Start Date End Date Eliceo Gómez, DO [address] [place] [address] PCP - General Family Medicine 04/04/23 Eliceo Gómez, DO [address] [place] [address] PCP - [facility] 05/06/2310/05 Juan Damico, DO [address] [place] [address] Referring Physician Obstetrics and Gynecology 05/20/24 documented as of this encounter
--- OUTSIDE RECORDS SUMMARY | 2025-04-14 07:26 | XMS_ITS | Clinical Summary ---
Author Organization [facility] Address [address] [place] [address] [place] [address] Care Team Providers Care Ferry Terminal Agent Name Role Phone Shannon Gómez DO Primary Care Provider [phone] Allergies Active Allergy Reactions Criticality Noted Date [...] Active omeprazole [address] capsuleIndicati ons:[place] grade D esophagitis TAKE 1 CAPSULE BY MOUTH EVERY DAY 90 capsule 1 12/02/19 25 Active Natural Vitamin D-3 125 MCG (5000 UT) tablet TAKE 1 TABLET BY MOUTH EVERY DAY 90 tablet 2 12/26/19 25 Active colestipol 1 g tabletIndicatio ns:Chronic diarrhea Take 1 tablet by mouth 2 times daily. 60 tablet 3 03/18/20 25 Active Active Problems Problem Noted Date Diagnosed Date Pelvic floor dysfunction 10/25/2024 Gastroparesis 10/25/2024 GERD (gastroesophageal reflux disease) Chronic constipation 10/25/2024 History of colectomy 10/25/2024 Encounters Date Type Department Care Team Description 02/16/2025 Refill Gastroenterology and Hepatology [facility] [address] [address] Padmaja Ledezma MD, PhD Chronic diarrhea from Last 3 Months Family History Medical History Relation Name Comments Heart Failure Father Nelson Passed in 2021 Hypertension Father Nelson Vision Problems Father Nelson Hypertension Mother Joanna Passed in 2022 Vision Problems Mother Joanna Relation Name [...] Completed 06/22/2020 HEP B VACCINE Completed 05/21/2024, 05/2008, 04/11/2008 INFLUENZA VACCINE Completed 07/01/2024, , 08/17/2022, Additional history exists Insurance [place] [address] Care Teams Ferry Terminal Agent Relationship Specialty Start Date End Date Shannon Gómez DO [address] [phone] PCP - General Family Medicine 11/14/23
--- OUTSIDE RECORDS SUMMARY | 2025-04-14 07:26 | XMS_ITS | Encounter Summary ---
Author Organization [facility] Address [address] [place] [address] Care Team Providers Care Vinyl Cutter Name Role Phone Eliceo Gómez DO Primary Care Provider [phone] Eliceo Gómez DO Unavailable [phone] Beata Hernandez Unavailable Juan Damico DO Unavailable [phone] Encounter Details Date Type Department Care Team [...] often do you attend chur ch or confucianism services? Never 04/14/2023 Do you [...] Recorded Patient Health Questionnaire-2 Score 0 10/03/2023 [facility] - Occupational Stress Questionnaire Answer Date [...] a senior living (including now)? No 10/25/2023 Comments No Sex [...] DERM [address] [place] [address] Nelsy Harris APRN-CLASSIFICATION INSPECTOR [address] [place] [address] documented as of this encounter Procedures Procedure Name Priority Date/Time Associated Diagnosis Comments XR SACRUM COCCYX 2+ VIEWS 12/14/2023 1:52 PM EST documented in this encounter Results * XR sacrum coccyx 2+ views (12/14/2023 1:52 PM EST) Anatomical Region Laterality Modality Sacrum, Coccyx Radiographic Ira ging 12/14/2023 1:52 PM EST Narrative 12/14/2023 1:54 PM EST The [address] [address] XRay Report Signed Patient: MARY FUENTES MR#: [id number] : 1970 Acct:[id number] Age/Sex: 53 / F ADM Date: 12/14/23 Loc: [facility] Attending Dr: Ace Ahumada M.D. Ordering Physician: Ace Ahumada M.D. Date of Service: 12/14/23 Procedure(s): XR sacrum coccyx min 2V Accession Number(s): [id number] cc: Ace Ahumada M.D.; Isatu GÓMEZ [place] [address] Patient Name: MARY FUENTES MRN: [id number] date: 1970 Sex: F Assigned Patient Location: [facility] Current Patient Location: [facility] Accession/Order Number: [id number] Exam Date: 12/14/2023 13:00 Report Date: 12/14/2023 [...] By: Nicki Dacosta M.D. Signed By: 12/14/23 1356 DD/ 1352 TD/TT: Rn Post Partum: Procedure Note Radiology, Radiologist, - 12/14/2023 [place] [address] XRay Report Signed Patient: MARY FUENTES DMR#: [id number] : 1970Acct:[id number] Age/Sex: 53 / FADM Date: 12/14/23 Loc: RAD Attending Dr: Ace Ahumada M.D. Ordering Physician: Ace Ahumada M.D. Date of Service: 12/14/23 Procedure(s): XR sacrum coccyx min 2V Accession Number(s): [id number] cc: Ace Ahumada M.D.; Isatu GÓMEZ [place] [address] Patient Name: MARY FUENTES MRN: [id number] date: 1970 Sex: F Assigned Patient Location: [facility] Current Patient Location: [facility] Accession/Order Number: [id number] Exam Date: 12/14/2023 13:00 Report Date: 12/14/2023 [...] Dictated By: Nicki Dacosta M.D. Signed By:12/14/23 1350 DD/ 1352 TD/TT: Rn Post Partum: us Generic External Data Provider IMG XR PROCEDURES Final Result documented in this encounter Visit Diagnoses Not on filedocumented in this encounter Care Teams Vinyl Cutter Relationship Specialty Start Date End Date Eliceo Gómez DO [address] [place] [address] PCP - General Family Medicine 04/04/23 Eliceo Gómez DO [address] [place] [address] PCP - [facility] 05/06/2310/05 Beata Hernandez PA [address] [place] [address] Dietitian Nutrition 08/08/23 05/16/24 Juan Damico DO [address] [place] [address] Referring Physician Obstetrics and Gynecology 05/20/24 documented as of this encounter
--- OUTSIDE RECORDS SUMMARY | 2025-04-14 07:26 | XMS_ITS | Encounter Summary ---
Author Organization [facility] Address [address] [place] [address] Care Team Providers Care Brick Burner Head Name Role Phone Eliceo Gómez DO Primary Care Provider [phone] Eliceo Gómez DO Unavailable [phone] Beata Hernandez Unavailable Juan Damico DO Unavailable [phone] Encounter Details Date Type Department Care Team [...] often do you attend chur ch or yarsanism services? Never 04/14/2023 Do you belong to [...] Recorded Patient Health Questionnaire-2 Score 0 10/03/2023 [facility] - Occupational Stress Questionnaire Answer [...] DERM [address] [place] [address] Nelsy Harris APRN-IRRADIATED FUEL HANDLER [address] [place] [address] documented as of this encounter Procedures Procedure Name Priority Date/Time Associated Diagnosis Comments MR CERVICAL SPINE WO CONTRAST 12/19/2023 7:59 AM EST documented in this encounter Results * MR cervical spine wo contrast (12/19/2023 7:59 AM EST) Anatomical Region Laterality Modality Spine, C-spine Magnetic Resonan ce 12/19/2023 7:59 AM EST Narrative 12/19/2023 8:02 AM EST The [address] [address] Magnetic Resonance Report Signed Patient: MARY FUENTES MR#: [id number] : 1970 Acct:[id number] Age/Sex: 53 / F ADM Date: 12/19/23 Loc: MRI Attending Dr: Ace Ahumada M.D. Ordering Physician: Ace Ahumada M.D. Date of Service: 12/19/23 Procedure(s): MR cervical spine wo con Accession Number(s): [id number] cc: Ace Ahumada M.D.; Isatu GÓMEZ [place] [id number] Patient Name: MARY FUENTES MRN: [id number] date: 1970 Sex: F Assigned Patient Location: MRI Current Patient Location: MRI Accession/Order Number: [id number] Exam Date: 12/19/2023 07:03 Report Date: 12/19/2023 [...] Signed By: 12/19/23 0802 DD/ 0759 TD/TT: Court Messenger: Procedure Note Radiology, Radiologist, MD - 12/19/2023 [place] [address] Magnetic Resonance Report Signed Patient: MARY FUENTES DMR#: [id number] : 1970Acct:[id number] Age/Sex: 53 / FADM Date: 12/19/23 Loc: MRI Attending Dr: Ace Ahumada M.D. Ordering Physician: Ace Ahumada M.D. Date of Service: 12/19/23 Procedure(s): MR cervical spine wo con Accession Number(s): [id number] cc: Ace Ahumada M.D.; Isatu GÓMEZ [place] [address] Patient Name: MARY FUENTES MRN: [facility]:[id number] date: 1970 Sex: F Assigned Patient Location: MRI Current Patient Location: MRI Accession/Order Number: [id number] Exam Date: 12/19/2023 07:03 Report Date: 12/19/2023 [...] M.D. Signed By:12/19/23 0802 DD/ 0759 TD/TT: Court Messenger: us Generic External Data Provider IMG MRI PROCEDURE S Final Result documented in this encounter Visit Diagnoses Not on filedocumented in this encounter Care Teams Brick Burner Head Relationship Specialty Start Date End Date Eliceo Gómez DO [address] [place] [address] PCP - General Family Medicine 04/04/23 Eliceo Gómez DO [address] [place] [address] PCP - [facility] 05/06/2310/05 Beata Hernandez PA [address] [place] [address] Dietitian Nutrition 08/08/23 05/16/24 Juan Damico DO [address] [place] [address] Referring Physician Obstetrics and Gynecology 05/20/24 documented as of this encounter
--- OUTSIDE RECORDS SUMMARY | 2025-04-14 07:26 | XMS_ITS | Encounter Summary ---
Author Organization [facility] Address [address] [place] [address] Care Team Providers Care Carrier Blower Name Role Phone Hernandeztomasa Eliceo Asiya DO Primary Care Provider [phone] Eliceo Gómez DO Unavailable [phone] Juan Damico DO Unavailable [phone] Reason for Visit * Reason Comments Med Refill Encounter Details Date Type Department Care Team (Late st Contact Info) Description 04/13/2025 Refill [facility] [address] [facility] [address] [place] [address] Juan Damico, [address] [facility] [address] [place] [address] Erythema Social History Tobacco Use Types Packs/Day Years [...] How often do you attend chur or restorationist services? Never 05/01/2024 Do you belong to [...] Recorded Patient Health Questionnaire-2 Score 0 01/20/2025 [facility] of Occupat ional Health - Occupational Stress [...] DERM [address] [place] [address] Nelsy Harris, FLOOR MECHANIC-HAND LOOM WEAVER [address] [place] [address] documented as of this encounter Visit Diagnoses Diagnosis Erythema Unspecified erythematous condition documented in this encounter Additional Health Concerns Assessment Noted Time PHQ-9 Depression Total Score: 0 01/21/20 25 1:00 PM EDT documented as of this encounter Care Teams Carrier Blower Relationship Specialty Start Date End Date Eliceo Gómez DO [address] [place] [address] PCP - General Family Medicine 04/04/23 Eliceo Gómez DO [address] [place] [address] PCP - [facility] 05/06/2310/05 Juan Damico DO [address] [place] [address] Referring Physician Obstetrics and Gynecology 05/20/24 documented as of this encounter
--- OUTSIDE RECORDS SUMMARY | 2025-04-14 07:26 | XMS_ITS | Encounter Summary ---
Author Organization [employer] Address [facility] [id number] [address] [place] [address] Care Team Providers Care Book Critic Name Role Phone Stephonmame Morales Eliceo Braden Primary Care Provider + Reason for Visit * Reason Comments Med Refill Encounter Details Date Type Department Care Team (Late st Contact Info) Description 01/09/2021 Refill [facility] [address] [place] [phone] Pauline Christensen MD [address] [place] [address], [facility] [address] [place] [address] Chronic mixed headache syndrome Social [...] Description 05/07/2025 7:30 AM EDT Office Visit [facility], A Department of [address] [place] [address] Soraida Gama PA [address] [facility] [address] [place] [address] documented as of this encounter Visit Diagnoses Diagnosis Chronic mixed headache syndrome Other headache syndromes documented in this encounter Care Teams Book Critic Relationship Specialty Start Date End Date Eliceo Gómez Jr., [address] [place] [address], [address] [address] PCP - General Family Medicine 12/11/19 Jenna Butler [address] [place] [address] Consulting Physician Behavioral Health 12/20/23 documented as of this encounter
--- OUTSIDE RECORDS SUMMARY | 2025-04-14 07:26 | XMS_ITS | Encounter Summary ---
Author Organization [facility] [employer] Address [id number] [address] [place] [address] Care Team Providers Care Hardwood Finisher Name Role Phone Dalia Morales DO, George R Primary Care Provider + Reason for Visit * Reason Onset Date Comments Med Refill 10/29/2020 Encounter Details Date Type Department Care Team (Late st Contact Info) Description 10/29/2020 Telephone [facility] Physicians [facility] [address] [facility] [address] [place] [address] Guera Benson CNA Med Refill Social History [...] Notes * Telephone Encounter - Guera Kelley, WORK FORCE ADVISOR - 10/29/2020 9:58 AM EST Amitiza samples and Trulance samples given to patient per Sharon Benson CNA 10/29/20 0959 documented in this encounter Plan of Treatment Upcoming Encounters Date Type Department Care Team (Late st Contact Info) Description 05/07/2025 7:30 AM EDT Office Visit [facility], A Department of [facility] [address] [phone] Soraida Gama PA 57[address] [facility] 103 [place] [address] documented as of this encounter Visit Diagnoses Not on filedocumented in this encounter Care Teams Hardwood Finisher Relationship Specialty Start Date End Date Eliceo Gómez Jr., [address] [place] [address], [address], [place] [address] PCP - General Family Medicine 12/11/19 Jenna Butler [address] Consulting Physician Behavioral Health 12/20/23 documented as of this encounter
--- OUTSIDE RECORDS SUMMARY | 2025-04-14 07:26 | XMS_ITS | Encounter Summary ---
Author Organization [facility] Address [address] [place] [address] Care Team Providers Care Precinct Police Captain Name Role Phone Eliceo Gómez DO Primary Care Provider [phone] Eliceo Gómez DO Unavailable [phone] Beata Hernandez Unavailable Juan Damico DO Unavailable [phone] Encounter Details Date Type Department Care Team (Late st Contact Info) Description 01/11/2024 Abstract [facility] FM 230 [address] [facility] [address] [place] [address] Eliceo Gómez, DO [address] [facility] 230 [place] [address] Social History Tobacco Use Types Packs/Day Years [...] How often do you attend chur or christian services? Never 04/14/2023 Do you belong to [...] Recorded Patient Health Questionnaire-2 Score 0 10/03/2023 [facility] of Occupat ional Health - [...] in a prison (including now)? No 10/25/2023 Comments No Sex [...] DERM [address] [place] [address] Nelsy Harris, BEAN DUMPER-SPECIAL PROCEDURES TECH [address] [place], [place] [address] documented as of this encounter Visit Diagnoses Not on filedocumented in this encounter Care Teams Precinct Police Captain Relationship Specialty Start Date End Date Eliceo Gómez DO [address] [place] [address] PCP - General Family Medicine 04/04/23 Eliceo Gómez DO [address] [place] [address] [facility] 05/06/2310/05 Beata Hernandez PA [address] [place] [address] Dietitian Nutrition 08/08/23 05/16/24 Juan Damico, [address] [place] [address] Referring Physician Obstetrics and Gynecology 05/20/24 documented as of this encounter
--- OUTSIDE RECORDS SUMMARY | 2025-04-14 07:26 | XMS_ITS | Encounter Summary ---
Author Organization [facility] Address [address] [facility] [place] [address] Care Team Providers Care Burn Out Scarfing Operator Name Role Phone Eliceo Gómez DO Primary Care Provider [phone] Eliceo Gómez DO Unavailable [phone] Beata Hernandez Unavailable Juan Damico DO Unavailable [phone] Encounter Details Date Type Department Care Team (Late st Contact Info) Description 12/14/2023 Orders Only [facility] [address] [facility] [facility] [facility] [place] [address] A, Unknown Practice [address] [place] [phone] Social History Tobacco Use Types Packs/Day Years [...] you attend chur or restoration services? Never 04/14/2023 Do you belong to any clubs o r organizations such as bahai groups, unions, fraternal or athletic groups, or [...] Recorded Patient Health Questionnaire-2 Score 0 10/03/2023 [facility] of Occupat ional Health - Occupational [...] DERM [address] [place] [address] Nelsy Harris APRN-HEALTH CARE LEGAL ASSISTANT [address] [place] [address] documented as of this encounter Procedures Procedure [...] on filedocumented in this encounter Care Teams Burn Out Scarfing Operator Relationship Specialty Start Date End Date Eliceo Gómez DO [address] [place] [address] PCP - General Family Medicine 04/04/23 Eliceo Gómez DO [address] [facility] 230 [place] [address] PCP - [facility] 05/06/2310/05 Beata Hernandez PA [address] [facility] [address] [place] [address] Dietitian Nutrition 08/08/23 05/16/24 Juan Damico DO [address] [facility] [address] [place] [address] Referring Physician Obstetrics and Gynecology 05/20/24 documented as of this encounter
--- OUTSIDE RECORDS SUMMARY | 2025-04-14 07:26 | XMS_ITS | Encounter Summary ---
Author Organization [facility] Address [address] [place] [address] Care Team Providers Care Radio Intelligence Operator Name Role Phone Eliceo Gómez DO Primary Care Provider [phone] Eliceo Gómez DO Unavailable [phone] Beata Hernandez Unavailable Juan Damico DO Unavailable [phone] Encounter Details Date Type Department Care Team (Late st Contact Info) Description 12/25/2023 Abstract [facility] FM 230 [address] [facility] [address] [place] [address] Eliceo Gómez, DO [address] [facility] [address] [place] [address] Social History Tobacco Use Types Packs/Day Years [...] Recorded Patient Health Questionnaire-2 Score 0 10/03/2023 [facility] of Occupat ional Health - Occupational [...] DERM [address] [place] [address] Nelsy Harris, MEDICAL ASSISTANT OB GYN-DRY GOODS INSPECTOR [address] [place], [place] [address] documented as of this encounter Visit Diagnoses Not on filedocumented in this encounter Care Teams Radio Intelligence Operator Relationship Specialty Start Date End Date Eliceo Gómez DO [address] [place] [address] PCP - General Family Medicine 04/04/23 Eliceo Gómez DO [address] [place] [address] [facility] 05/06/2310/05 Beata Hernandez PA [address] [place] [address] Dietitian Nutrition 08/08/23 05/16/24 Juan Damico, [address] [place] [address] Referring Physician Obstetrics and Gynecology 05/20/24 documented as of this encounter
--- OUTSIDE RECORDS SUMMARY | 2025-04-14 07:26 | XMS_ITS | Clinical Summary ---
Author Organization [email or web address] Address [id number] [address] [place] [address] Care Team Providers Care Cutter And Edge Trimmer Name Role Phone Dalia Morales DO Eliceo [...] 05/18/2021 0 07/07/2022 Chronic tonsillitis 01/11/2021 07/07/20 Atopic dermatitis 04/09/2020 09/07/2023 Encounters Date Type Department Care Team Description 04/10/2025 Travel 01/25/2025 Orders Only [facility] [address] [place] [address] Pauline Christenesn MD from Last 3 Months Family History [...] 01/10/2024 12:40 PM EST Plan of Treatment Upcoming Encounters Date Type Department Care Team (Late st Contact Info) Description 05/07/2025 7:30 AM EDT Office Visit [facility], A Department of [facility] [address] [place] [phone] Soraida Gama PA [address] [facility] [address] [place] [address] Health Maintenance Due Date Last Done Comments Zoster (Shingles) Vaccine (2 of 2) 05/31/2024 04/05/2024 COVID-19 Vaccine ( - 2023-2 5 season) 2024 11/24/2021, 05/11/2021, 04/20/2021 Depression Screening 10/23/2024 10/23/2023 Adult BMI Screening 01/09/2025 01/10/2024 Tobacco Screening 01/09/2025 01/10/2024 Influenza Vaccine 07/07/2025 12/21/2023, , 09/02/2020, Additional history exists DTaP,Tdap and Td Vaccines (2 - Td or Tdap) 06/22/2030 06/22/2020 Medical Devices Implanted Type Area Family Law Paralegal Device Identifier Shelf Expiration Date Model / Serial / Lot Generator Nrstm - [id number] Implanted:Qty: 1 on 01/02/2024 by Cullen Dawkins MD at [facility] Generator Right: Neck [employer] 09/20/2026 3028 / [id number] / Lead Ns Respiratory - [id number] Implanted:Qty: 1 on 01/02/2024 by Cullen Dawkins MD at [facility] Implant Lead Right: Neck [employer] 10/20/2026 4340 / [id number] / Lead Nrstm Inspr 3 Elect Cuf Tnl Boni Strl Lf - [id number] - [id number] Implanted:Qty: 1 on 01/02/2024 by Cullen Dawkins MD at [facility] Neuro Stimulator Right: Neck [employer] 07/19/2026 4063 / [id number] / Insurance [place] [employer] Care Teams Cutter And Edge Trimmer Relationship Specialty Start Date End Date Kaftan, Eliceo R Jr., DO [address] [place] [address], [address] [place] [address] PCP - General Family Medicine 12/11/19 Jenna Butler [address] Consulting Physician Behavioral Health 12/20/23
--- OUTSIDE RECORDS SUMMARY | 2025-04-14 07:26 | XMS_ITS | Encounter Summary ---
Author Organization [facility] Address [address] [place] [address] Care Team Providers Care Business Coordinator Name Role Phone Shannon Gómez DO Primary Care Provider + [phone] Reason for Visit * Reason Onset Date Comments Medication Refill 11/27/2024 Results 11/27/2024 Pt thought outsi de facility sent results adv we havent received anything and gave fax number of [phone]. Encounter Details Date Type Department Care Team (Late st Contact Info) Description 11/27/2024 Telephone Central Scheduling [address] [place] [address] Kelly Sidhu Medication Refill; Results (Pt thought outside facility sent results adv we havent received anything and gave fax number of [phone].) Social History Tobacco Use Types Packs/Day Years [...] IS ATTACHED TO ENCOUNTER [id number] [place] [address] [address] [facility] documented in this encounter Plan of Treatment Not on file documented as of this encounter Visit Diagnoses Not on filedocumented in this encounter Care Teams Business Coordinator Relationship Specialty Start Date End Date Shannon Gómez DO [address] [place] [address] PCP - General Family Medicine 11/14/23 documented as of this encounter
--- OUTSIDE RECORDS SUMMARY | 2025-04-14 07:26 | XMS_ITS | Encounter Summary ---
Author Organization [facility] Address [address] [facility] [place] [address] Care Team Providers Care Educational Technologist Name Role Phone Eliceo Gómez DO Primary Care Provider [phone] Eliceo Gómez DO Unavailable [phone] Juan Damico DO Unavailable [phone] Reason for Visit * Reason Onset Date Comments Med Refill 04/10/2025 Encounter Details Date Type Department Care Team (Late st Contact Info) Description 04/10/2025 Refill [facility] [address] [facility] [address] [place] [address] Nereyda Murphy LPN [address] [place] [address] Hormone replacement therapy; Dyspareunia in female Social History Tobacco Use Types Packs/Day Years [...] How often do you attend chur or methodist services? Never 05/01/2024 Do you belong to any clubs o r organizations such as hinduism groups, unions, fraternal or athletic groups, or [...] Questionnaire-2 Score 0 01/20/2025 [facility] of Occupat ional Health - Occupational Stress [...] encounter Miscellaneous Notes * Telephone Encounter - Nida Toro MA - 04/11/2025 8:43 AM EDT Last yearly 06/12/24, not scheduled for 2024. Approved with [facility]- Needs appt for future refills. * Telephone Encounter - Nereyda Murphy LPN - 04/10/2025 1:23 PM EDT PT LVM requesting refill of estradiol cream Reviewed pt chart,verified Rx MEREDITH 11/12, do not see recent yearly, will forward to provider for review. documented in this encounter Plan of Treatment Upcoming Encounters Date Type Department Care Team (Late st Contact Info) Description 11/20/2025 8:30 AM EST Office Visit [facility] [address] [place] [address] Nelsy Harris APRN-DIESEL STATIONARY ENGINEER [address] [place] [address] documented as of this encounter Visit Diagnoses Diagnosis Hormone replacement therapy Dyspareunia in female documented in this encounter Additional Health Concerns Assessment Noted Time PHQ-9 Depression Total Score: 0 01/21/20 1:00 PM EDT documented as of this encounter Care Teams Educational Technologist Relationship Specialty Start Date End Date Eliceo Gómez DO [address] [place] [address] PCP - General Family Medicine 04/04/23 Eliceo Gómez DO [address] [place] [address] PCP - [facility] 05/06/2310/05 Juan Damico DO [address] [place] [address] Referring Physician Obstetrics and Gynecology 05/20/24 documented as of this encounter
--- OUTSIDE RECORDS SUMMARY | 2025-04-14 07:26 | XMS_ITS | Encounter Summary ---
Author Organization [employer] Address [id number] [address] [place] [address] Care Team Providers Care Crowning Hammer Operator Name Role Phone Dalia Morales Eliceo Braden Primary Care Provider + Reason for Visit * Reason Comments Med Refill Encounter Details Date Type Department Care Team (Late st Contact Info) Description 10/19/2020 Refill [facility] [address] [place] [phone] Pauline Christensen MD [address] [place] [address], [facility] [address] [place] [address] Chronic mixed headache syndrome Social [...] 10/19/2020 4:15 PM EST RN sent a [employer] message to patient (a modality with which she frequently communicates with this office) to inquire if the indomethacin is still helping. RN will update the refill request when response received. Jessi Franklin RN 10/20/20 0890 * Telephone Encounter - Jessi Franklin RN - 10/19/2020 4:15 PM EST Patient responded to [employer] message as below: It helps some days. But not all the time. Is it time for a change maybe? Please advise, and thank you. Jessi Franklin RN 10/20/20 0976 * Telephone Encounter - Pauline Christensen MD [...] Linda in mid- September. RN asked in [facility] message if she is still taking Dayvigo. [...] EST Received call today 10/21/20 9:30 from [facility] who states that both the scriptsfor [...] is taking it. RN called [facility] at number below. RN spoke with pharmacist [...] unable. Thank you. Jessi Franklin RN 12/23/20 1654 documented in this encounter Plan of Treatment Upcoming Encounters Date Type Department Care Team (Late st Contact Info) Description 05/07/2025 7:30 AM EDT Office Visit [facility] [place], A Department of [address] [address] Soraida Gama PA [address] [place] [address] documented as of this encounter Visit Diagnoses Diagnosis Chronic mixed headache syndrome Other headache syndromes documented in this encounter Care Teams Crowning Hammer Operator Relationship Specialty Start Date End Date Eliceo Gómez Jr., DO [address] [place] [address], [address], [place] [address] PCP - General Family Medicine 12/11/19 Jenna Butler [address] Consulting Physician Behavioral Health 12/20/23 documented as of this encounter
--- OUTSIDE RECORDS SUMMARY | 2025-04-14 07:26 | XMS_ITS | Encounter Summary ---
Author Organization [facility] Address [address] [facility] [place] [address] Care Team Providers Care Assistant Cook Name Role Phone Eliceo Gómez DO Primary Care Provider [phone] Eliceo Gómez DO Unavailable [phone] Juan Damico DO Unavailable [phone] Encounter Details Date Type Department Care Team (Late st Contact Info) Description 04/02/2025 Abstract [facility] FM [address] [facility] [address] [place] [address] Eliceo Gómez DO [address] [facility] [address] [place] [address] Social History Tobacco Use Types Packs/Day Years [...] How often do you attend chur or baptism services? Never 05/01/2024 Do you belong to [...] Recorded Patient Health Questionnaire-2 Score 0 01/20/2025 [facility] of Occupat ionaz Health - Occupational Stress [...] DERM [address] [place] [address] Nelsy Harris, DIETARY SERVICES MANAGER-EDITOR [employer] [address] [place] [address] documented as of this encounter Visit Diagnoses Not on filedocumented in this encounter Additional Health Concerns Assessment Noted Time PHQ-9 Depression Total Score: 0 01/21/20 25 1:00 PM EDT documented as of this encounter Care Teams Assistant Cook Relationship Specialty Start Date End Date Eliceo Gómez DO [address] [place] [address] PCP - General Family Medicine 04/04/23 Eliceo Gómez DO [address] [place] [address] PCP - [facility] 05/06/2310/05 Juan Damico DO [address] [place] [address] Referring Physician Obstetrics and Gynecology 05/20/24 documented as of this encounter
--- OUTSIDE RECORDS SUMMARY | 2025-04-14 07:26 | XMS_ITS | Encounter Summary ---
Author Organization [employer]r Sys tem Address [id number] [address] [place] [address] Care Team Providers Care Er Registrar Name Role Phone Dalia Morales DO, George R Primary Care Provider + Encounter Details Date Type Department Care Team (Late st Contact Info) Description 01/04/2021 Orders Only [facility] Pulmonary/Sleep Medicine [address] [place] [address] Daisy Ley LPN Asthma, unspecified asthma [...] Description 05/07/2025 7:30 AM EDT Office Visit [facility], A Department of [facility] [address] [facility] [address] [place] [address] Soraida Gama PA [address] [facility] [address] [place] [address] documented as of this encounter Procedures Procedure [...] Alpha 1 antitrypsin targeting genotyping (12/25/2020) 12/25/2020 [employer] SALES REPRESENTATIVE-CARBON PAPER COATING MACHINE SETTER LAB BLOOD ORDERABLES Fi nal Result Performing Organization Address [facility] de Phone Number QUEST * Immunoglobulins (12/25/2020) 12/25/2020 [employer] SALES REPRESENTATIVE-CARBON PAPER COATING MACHINE SETTER LAB BLOOD ORDERABLES Fi nal Result Performing Organization Address City/[facility]/ZIP Co de Phone Number QUEST * Respiratory allergy panel (12/25/2020) Blood Venous blood / Unknown 12/25/2020 [employer] SALES REPRESENTATIVE-CARBON PAPER COATING MACHINE SETTER LAB BLOOD ORDERABLES Fi nal Result Performing Organization Address City/[facility] Co de Phone Number QUEST documented in this encounter Visit Diagnoses Diagnosis Asthma, unspecified asthma severity, unspecified whether complicated, unspecified whether persistent documented in this encounter Care Teams Er Registrar Relationship Specialty Start Date End Date Eliceo Gómez Jr., DO [address] [place] [address], [address] [place] [address] PCP - General Family Medicine 12/11/19 Jenna Butler [address] Consulting Physician Behavioral Health 12/20/23 documented as of this encounter
--- OUTSIDE RECORDS SUMMARY | 2025-04-14 07:27 | XMS_ITS | Encounter Summary ---
Author Organization [facility] Address [address] [facility] [place] [address] Care Team Providers Care Services Rep Name Role Phone Eliceo Gómez DO Primary Care Provider [phone] Eliceo Gómez DO Unavailable [phone] Beata Hernandez Unavailable Juan Damico DO Unavailable [phone] Encounter Details Date Type Department Care Team (Late st Contact Info) Description 06/28/2023 Orders Only [facility] FM [address] [facility] [address] [place] [address] A, Unknown Practice [address] [place] [address] Social History Tobacco Use Types Packs/Day Years [...] Recorded Patient Health Questionnaire-2 Score 0 06/08/2023 [facility] - Occupational Stress Questionnaire Answer Date [...] slept in a usp (including now)? No 04/14/2023 Comments No Sex [...] DERM [address] [place] [address] Nelsy Harris APRN-MASH PROCESSING OPERATOR [address] [place] [address] documented as of this encounter [...] on filedocumented in this encounter Care Teams Services Rep Relationship Specialty Start Date End Date Eliceo Gómez DO [address] [place] [address] PCP - General Family Medicine 04/04/23 Eliceo Gómez, DO [address] [place] [address] PCP - [facility] 05/06/2310/05 Beata Hernandez PA [address] [place] [address] Dietitian Nutrition 08/08/23 05/16/24 Juan Damico, [address] [place] [address] Referring Physician Obstetrics and Gynecology 05/20/24 documented as of this encounter
--- OUTSIDE RECORDS SUMMARY | 2025-04-14 07:27 | XMS_ITS | Encounter Summary ---
Author Organization [facility] Address [address] [place] [address] Care Team Providers Care Tester Printed Circuit Boards Name Role Phone Eliceo Gómez DO Primary Care Provider [phone] Eliceo Gómez DO Unavailable [phone] Beata Hernandez Unavailable Juan Damico DO Unavailable [phone] Encounter Details Date Type Department Care Team (Late st Contact Info) Description 08/03/2023 Orders Only [facility] FM [address] [facility] [address] [place] [phone] A, Unknown Practice [address] [place] [address] Social History Tobacco Use Types Packs/Day Years [...] How often do you attend chur or alevism services? Never 04/14/2023 Do you belong to any clubs o r organizations such as islam groups, unions, fraternal or athletic groups, or [...] Recorded Patient Health Questionnaire-2 Score 0 07/06/2023 [facility] - Occupational Stress Questionnaire Answer Date Recorded [...] place to sleep or slept in a care home (including now)? No 04/14/2023 Comments No [...] DERM [address] [place] [address] Nelsy Harris APRN-ASSISTANT [place] ATTORNEY [address] [place] [address] documented as of this encounter [...] on filedocumented in this encounter Care Teams Tester Printed Circuit Boards Relationship Specialty Start Date End Date Eliceo Gómez DO [address] [place] [address] PCP - General Family Medicine 04/04/23 Eliceo Gómez DO [address] [place] [address] PCP - [facility] 05/06/2310/05 Beata Hernandez PA [address] [place] [address] Dietitian Nutrition 08/08/23 05/16/24 Juan Damico, DO [address] [place] [address] Referring Physician Obstetrics and Gynecology 05/20/24 documented as of this encounter
--- OUTSIDE RECORDS SUMMARY | 2025-04-14 07:27 | XMS_ITS | Encounter Summary ---
Author Organization [facility] Address [address] [place] [address] Care Team Providers Care Forest Ecology Professor Name Role Phone Eliceo Gómez DO Primary Care Provider Eliceo Gómez DO Unavailable [phone] Juan Damico DO Unavailable [phone] Encounter Details Date Type Department Care Team [...] How often do you attend chur or buddhism services? Never 05/01/2024 Do you belong to [...] Recorded Patient Health Questionnaire-2 Score 0 07/11/2024 [facility] of Occupat ional Health - [...] in a fpc (including now)? No 10/25/2023 Housing Stability Vital Sign Answer Melecio e Recorded In the last 12 months, was t here a time when you were not able to pay the mortgage or rent on time? No 05/01/2024 In the past 12 months, how m any times have you moved where you were living? 1 05/01/2024 At any time in the past 12 m [facility], were you homeless or living in a fpc (including now)? No 05/01/2024 Comments No Sex [...] DERM [address] [place] [address] Nelsy Harris APRN-EMBLEM CUTTER [address] [place] [address] documented as of this encounter Procedures Procedure Name Priority Date/Time Associated Diagnosis Comments XR FOOT RT MIN 3V 10/03/2024 9:2 5 AM EST documented in this encounter Results * XR FOOT RT MIN 3V (10/03/2024 9:25 AM EST) Anatomical Region Laterality Modality Other 10/03/2024 9:25 AM EST Narrative 10/03/2024 9:28 [place] [address] XRay Report Signed Patient: ELSIE FUENTES MR#: [id number] : 1970 Acct:[id number] Age/Sex: 54 / F ADM Date: 10/01/24 Loc: RAD Attending Dr: Sade Felix D.P.M. Ordering Physician: Sade Felix D.P.M. Date of Service: 10/01/24 Procedure(s): XR foot RT min 3V Accession Number(s): [id number] cc: Sade Feilx D.P.M.; Isatu GÓMEZ [place] [address] Patient Name: ELSIE FUENTES MRN: [id number] date: 1970 Sex: F Assigned Patient Location: [facility] Current Patient Location: [facility] Accession/Order Number: [id number] Exam Date: 10/01/2024 07:45 Report Date: 10/03/2024 [...] M.D. Signed By: 10/03/24927 DD/ 4 TD/TT: Cruise Guide: Procedure Note Radiology, Radiologist, - 10/03/2024 [place] [address] XRay Report Signed Patient: ELSIE FUENTES DMR#: [id number] : 1970Acct:[id number] Age/Sex: 54 / FADM Date: 10/01/24 Loc: RAD Attending Dr: Sade Felix D.P.M. Ordering Physician: Sade Felix D.P.M. Date of Service: 10/01/24 Procedure(s): XR foot RT min 3V Accession Number(s): [id number] cc: Sade Felix D.P.M.; Isatu GÓMEZ [place] [address] Patient Name: ELSIE FUENTES MRN: [id number] date: 1970 Sex: F Assigned Patient Location: [facility] Current Patient Location: [facility] Accession/Order Number: [id number] Exam Date: 10/01/2024 07:45 Report Date: 10/03/2024 [...] Oliveros M.D. Signed By:10/03/24927 DD/ 4 TD/TT: Cruise Guide: us Generic External Data Provider [facility] Final Result documented in this encounter Visit Diagnoses Not on filedocumented in this encounter Care Teams Forest Ecology Professor Relationship Specialty Start Date End Date Eliceo Gómez DO [address] [place] [address] PCP - General Family Medicine 04/04/23 Eliceo Gómez DO [address] [place] [address] PCP - [facility] 05/06/2310/05 Juan Damico DO [address] [place] [address] Referring Physician Obstetrics and Gynecology 05/20/24 documented as of this encounter
--- OUTSIDE RECORDS SUMMARY | 2025-04-14 07:27 | XMS_ITS | Encounter Summary ---
Author Organization [facility] Address [address] [place] [address] Care Team Providers Care Database Manager Name Role Phone Eliceo Gómez DO Primary Care Provider Eliceo Gómez DO Unavailable [phone] Beata Hernandez Unavailable Juan Damico DO Unavailable [phone] Encounter Details Date Type Department Care Team (Late st Contact Info) Description 06/21/2023 Abstract [facility] FM [address] [facility] [address] [place] [address] Eliceo Gómez, DO [address] [facility] [address] [place] [address] Social History Tobacco Use Types Packs/Day Years [...] How often do you attend chur or tenriism services? Never 04/14/2023 Do you belong to any clubs o r organizations such as jehovah's witness groups, unions, fraternal or athletic groups, or [...] Recorded Patient Health Questionnaire-2 Score 0 06/08/2023 [facility] - Occupational Stress Questionnaire Answer [...] place to sleep or slept in a residential (including now)? No 04/14/2023 Comments No Sex [...] DERM [address] [place] [address] Nelsy Harris, BRICK OFFBEARER-BRUSHER OPERATOR [address] [place] [address] documented as of this encounter Visit Diagnoses Not on filedocumented in this encounter Care Teams Database Manager Relationship Specialty Start Date End Date Eliceo Gómez DO [address] [place] [address] PCP - General Family Medicine 04/04/23 Eliceo Gómez DO [address] [facility] [address] [place] [address] PCP - [facility] 05/06/2310/05 Beata Hernandez PA [address] [facility] [place] [address] Dietitian Nutrition 08/08/23 05/16/24 Juan Damico DO [address] [facility] [place] [address] Referring Physician Obstetrics and Gynecology 05/20/24 documented as of this encounter
--- OUTSIDE RECORDS SUMMARY | 2025-04-14 07:27 | XMS_ITS | Encounter Summary ---
Author Organization [facility] Address [address] [place] [place] [address] Care Team Providers Care Card Tender Name Role Phone Eliceo Gómez DO Primary Care Provider [phone] Eliceo Gómez DO Unavailable [phone] Beata Hernandez Unavailable Juan Damico DO Unavailable [phone] Encounter Details Date Type Department Care Team (Late st Contact Info) Description 07/12/2023 Orders Only [facility] FM [address] [facility] [address] [place] [address] A, Unknown Practice [address] [place] [address] Social History Tobacco Use Types Packs/Day Years [...] Recorded Patient Health Questionnaire-2 Score 0 07/06/2023 [facility] - Occupational Stress [...] slept in a correction (including now)? No 04/14/2023 Comments No Sex [...] DERM [address] [place] [address] Nelsy Harris APRN-IMPOSER [address] [place] [address] documented as of this encounter [...] on filedocumented in this encounter Care Teams Card Tender Relationship Specialty Start Date End Date Eliceo Gómez DO [address] [place] [address] PCP - General Family Medicine 04/04/23 Eliceo Gómez, DO [address] [place] [address] PCP - [facility] 05/06/2310/05 Beata Hernandez PA [address] [place] [address] Dietitian Nutrition 08/08/23 05/16/24 Juan Damico, [address] [place] [address] Referring Physician Obstetrics and Gynecology 05/20/24 documented as of this encounter
--- OUTSIDE RECORDS SUMMARY | 2025-04-14 07:27 | XMS_ITS | Encounter Summary ---
Author Organization [facility] Address [address] [place] [address] Care Team Providers Care Utility Bill Collector Name Role Phone Eliceo Gómez DO Primary Care Provider [phone] Eliceo Gómez DO Unavailable [phone] Beata Hernandez Unavailable Juan Damico DO Unavailable [phone] Encounter Details Date Type Department Care Team (Late st Contact Info) Description 06/20/2023 Abstract [facility] OB [address] [facility] [address] [place] [address] Juan Damico, DO [address] [facility] [address] [place] [address] Social History Tobacco Use Types Packs/Day Years [...] How often do you attend chur or gnosticism services? Never 04/14/2023 Do you [...] Recorded Patient Health Questionnaire-2 Score 0 06/08/2023 [facility] - Occupational Stress [...] slept in a long-term (including now)? No 04/14/2023 Comments No Sex [...] DERM [address] [place] [address] Nelsy Harris, SALES SUPPORT ASSOCIATE-AIR MARSHAL [address] [place] [address] documented as of this encounter Visit Diagnoses Not on filedocumented in this encounter Care Teams Utility Bill Collector Relationship Specialty Start Date End Date Eliceo Gómez DO [address] [place] [address] PCP - General Family Medicine 04/04/23 Eliceo Gómez DO [address] [facility] [address] [place] [address] PCP - [facility] 05/06/2310/05 Beata Hernandez PA [address] [facility] [place] [address] Dietitian Nutrition 08/08/23 05/16/24 Juan Damico DO [address] [facility] [place] [address] Referring Physician Obstetrics and Gynecology 05/20/24 documented as of this encounter
--- OUTSIDE RECORDS SUMMARY | 2025-04-14 07:27 | XMS_ITS | Encounter Summary ---
Author Organization [facility] Address [address] [facility] [place] [address] Care Team Providers Care Fish Worm Grower Name Role Phone Eliceo Gómez DO Primary Care Provider [phone] Eliceo Gómez DO Unavailable [phone] Beata Hernandez Unavailable Juan Damico DO Unavailable [phone] Encounter Details Date Type Department Care Team (Late st Contact Info) Description 09/13/2023 Orders Only [facility] FM [address] [facility] [address] [place] [address] A, Unknown Practice [address] [place] [address] Social History Tobacco Use Types Packs/Day Years [...] How often do you attend chur or uatsdin services? Never 04/14/2023 Do you belong to [...] Recorded Patient Health Questionnaire-2 Score 0 07/06/2023 [facility] - Occupational Stress Questionnaire Answer Date [...] DERM [address] [place] [address] Nelsy Harris APRN-MELT HELPER [address] [facility] [address] [place] [address] documented as of this encounter [...] on filedocumented in this encounter Care Teams Fish Worm Grower Relationship Specialty Start Date End Date Eliceo Gómez DO [address] [place] [address] PCP - General Family Medicine 04/04/23 Eliceo Gómez DO [address] [place] [address] PCP - [facility] 05/06/2310/05 Beata Hernandez PA [address] [place] [address] Dietitian Nutrition 08/08/23 05/16/24 Juan Damico DO [address] [place] [address] Referring Physician Obstetrics and Gynecology 05/20/24 documented as of this encounter
--- OUTSIDE RECORDS SUMMARY | 2025-04-14 07:27 | XMS_ITS | Encounter Summary ---
Author Organization [facility] Address [address] [facility] [place] [address] Care Team Providers Care Sales Rep Name Role Phone Eliceo Gómez DO Primary Care Provider [phone] Eliceo Gómez DO Unavailable [phone] Juan Damico DO Unavailable [phone] Encounter Details Date Type Department Care Team (Late st Contact Info) Description 07/22/2024 Abstract [facility] FM [address] [facility] 230 [place] [address] Eliceo Gómez DO [address] [facility] 230 [place] [address] Social History Tobacco Use Types Packs/Day Years [...] Recorded Patient Health Questionnaire-2 Score 0 07/11/2024 [facility] of Occupat ionid Health - Occupational Stress Questionnaire Answer Date [...] in a longterm (including now)? No 10/25/2023 Housing Stability Vital Sign Answer Melecio e Recorded In the last 12 months, was t here a time when you were not able to pay the mortgage or rent on time? No 05/01/2024 In the past 12 months, how m any times have you moved where you were living? 1 05/01/2024 At any time in the past 12 m [facility], were you homeless or living in a longterm (including now)? No 05/01/2024 Comments No Sex [...] DERM [address] [place] [address] Nelsy Harris, COCONUT COOKER-RUBBER MOLD MAKER [address] [place] [address] documented as of this encounter Visit Diagnoses Not on filedocumented in this encounter Care Teams Sales Rep Relationship Specialty Start Date End Date Eliceo Gómez, DO [address] [place] [address] PCP - General Family Medicine 04/04/23 Eliceo Gómez, DO [address] [place] [address] PCP - [facility] 05/06/2310/05 Juan Damico, DO [address] [place] [address] Referring Physician Obstetrics and Gynecology 05/20/24 documented as of this encounter
--- OUTSIDE RECORDS SUMMARY | 2025-04-14 07:27 | XMS_ITS | Encounter Summary ---
Author Organization [facility] Address [address] [place] [address] Care Team Providers Care Software Development Intern Name Role Phone Eliceo Gómez DO Primary Care Provider [phone] Eliceo Gómez DO Unavailable [phone] Beata Hernandez Unavailable Juan Damico DO Unavailable [phone] Encounter Details Date Type Department Care Team [...] often do you attend chur ch or mandaen services? Never 04/14/2023 Do you belong to any clubs o r organizations such as latter-day groups, unions, fraternal or athletic groups, or [...] Recorded Patient Health Questionnaire-2 Score 0 07/06/2023 [facility] - Occupational Stress Questionnaire Answer Date [...] in a senior care (including now)? No 04/14/2023 Comments No Sex [...] DERM [address] [place] [address] Nelsy Harris APRN-GENERAL II FARMWORKER [address] [place] [address] documented as of this encounter Procedures Procedure Name Priority Date/Time Associated Diagnosis Comments CT ANKLE RT WO CON 08/05/2023 8: 01 PM EDT documented in this encounter Results * CT ANKLE RT WO CON (08/05/2023 8:01 PM EDT) Anatomical Region Laterality Modality Other 08/05/2023 8:01 PM EDT Narrative 08/05/2023 8:01 PM EDT The [address] [address] [address] Scan Report Signed Patient: MARY FUENTES MR#: [id number] : 1970 Acct:[id number] Age/Sex: 53 / F ADM Date: 08/04/23 Loc: CT Attending Dr: Niecy Serna Ordering Physician: Niecy Serna Date of Service: 08/04/23 Procedure(s): CT ankle RT wo con Accession Number(s): [id number] cc: Isatu GÓMEZ [place] [id number] Patient Name: MARY FUENTES MRN: [facility]:[id number] date: 1970 Sex: F Assigned Patient Location: CT Current Patient Location: Accession/Order Number: [id number] Exam Date: 08/04/2023 12:43 Report Date: 08/05/2023 20:01 At the request of: NIECY SERNA Procedure: CT ankle RT wo con EXAM: CT ankle RT wo con, [id number] 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 TECHNIQUE: Helical [...] Yang Signed By: 08/05/232003 DD/ 00 TD/TT: Perinatal Coordinator: Procedure Note Radiology, Radiologist, MD - 08/05/2023 [place] [address] CT Scan Report Signed Patient: MARY FUENTES DMR#: [id number] : 1970Acct:[id number] Age/Sex: 53 / FADM Date: 08/04/23 Loc: CT Attending Dr: Niecy Serna Ordering Physician: Neicy Serna Date of Service: 08/04/23 Procedure(s): CT ankle RT wo con Accession Number(s): [id number] cc: Isatu GÓMEZ [place] [address] Patient Name: MARY FUENTES MRN: [facility]:[id number] date: 1970 Sex: F Assigned Patient Location: CT Current Patient Location: Accession/Order Number: [id number] Exam Date: 08/04/2023 12:43 Report Date: 08/05/2023 20:01 At the request of: NIECY SERNA Procedure: CT ankle RT wo con EXAM: CT ankle RT wo con, [id number] 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 TECHNIQUE: Helical [...] Mell Yang Signed By:08/05/232003 DD/ 00 TD/TT: Perinatal Coordinator: us Generic External Data Provider [facility] Final Result documented in this encounter Visit Diagnoses Not on filedocumented in this encounter Care Teams Software Development Intern Relationship Specialty Start Date End Date Eliceo Gómez DO [address] [place] [id number] PCP - General Family Medicine 04/04/23 Eliceo Gómez DO [address] [place] [address] PCP - [facility] 05/06/2310/05 Beata Hernandez PA [address] [place] [address] Dietitian Nutrition 08/08/23 05/16/24 Juan Damico DO [address] [place] [address] Referring Physician Obstetrics and Gynecology 05/20/24 documented as of this encounter
--- OUTSIDE RECORDS SUMMARY | 2025-04-14 07:27 | XMS_ITS | Encounter Summary ---
Author Organization [facility] Address [address] [place] [address] Care Team Providers Care Cook Soup Name Role Phone Eliceo Gómez DO Primary Care Provider [phone] Eliceo Gómez DO Unavailable [phone] Beata Hernandez Unavailable Juan Damico DO Unavailable [phone] Encounter Details Date Type Department Care Team (Late st Contact Info) Description 07/25/2023 Orders Only [facility] FM [address] [facility] [address] [place] [address] A, Unknown Practice [address] [place] [address] Social History Tobacco Use Types Packs/Day Years [...] How often do you attend chur or samaritan services? Never 04/14/2023 Do you belong to any clubs o r organizations such as amish groups, unions, fraternal or athletic groups, or [...] Recorded Patient Health Questionnaire-2 Score 0 07/06/2023 [facility] - Occupational Stress Questionnaire Answer [...] slept in a penitentiary (including now)? No 04/14/2023 Comments No Sex [...] DERM [address] [place] [address] Nelsy Harris APRN-STATISTICAL MODELER [address] [place] [address] documented as of this encounter Procedures Procedure Name Priority Date/Time Associated Diagnosis Comments ESOPHAGOSCOPY Routine 07/25/2023 3:25 PM EDT documented in this encounter Results * Esophagoscopy (07/25/2023 3:25 PM EDT) Anatomical Region Laterality Modality Endoscopy us Unknown Practice A ENDOSCOPY PROCEDURE ORDERABLE S Final Result documented in this encounter Visit Diagnoses Not on filedocumented in this encounter Care Teams Cook Soup Relationship Specialty Start Date End Date Eliceo Gómez DO [address] [place] [address] PCP - General Family Medicine 04/04/23 Eliceo Gómez DO [address] [facility] [address] [place] [address] PCP - [facility] 05/06/2310/05 Beata Hernandez PA [address] [place] [address] Dietitian Nutrition 08/08/23 05/16/24 Juan Damico DO [address] [place] [address] Referring Physician Obstetrics and Gynecology 05/20/24 documented as of this encounter
--- OUTSIDE RECORDS SUMMARY | 2025-04-14 07:27 | XMS_ITS | Encounter Summary ---
Author Organization [employer] Address [id number] [address] [place] [address] Care Team Providers Care Engine Turner Name Role Phone Dalia Morales DO, George R Primary Care Provider + Encounter Details Date Type Department Care Team (Late Contact Info) Description 02/12/2021 Orders Only [facility] [address] [place] [address] External, Scanning Provider Social History Tobacco Use [...] Encounters Date Type Department Care Team (Late Contact Info) Description 05/07/2025 7:30 AM EDT Office Visit [facility] [address] [facility] [address] [place] [address] Soraida Gama PA [address] [facility] [address] [place] [address] documented as of this encounter Procedures Procedure Name Priority Date/Time Associated Diagnosis Comments MULTIPLE LABS Routine 01/21/2021 documented in this encounter Results * Multiple labs (01/21/2021) us Scanning Provider External [facility] Final Result MANUALLY TRANSCRIBED RESULTS documented in this encounter Visit Diagnoses Not on filedocumented in this encounter Care Teams Engine Turner Relationship Specialty Start Date End Date Eliceo Gómez Jr., [address] [place] [address], [address], [place] [address] PCP - General Family Medicine 12/11/19 Jenna Butler [address] Consulting Physician Behavioral Health 12/20/23 documented as of this encounter
--- OUTSIDE RECORDS SUMMARY | 2025-04-14 07:27 | XMS_ITS | Encounter Summary ---
Author Organization [facility] Address [address] [facility] [place] [address] Care Team Providers Care Manager Maintenance Name Role Phone Eliceo Gómez DO Primary Care Provider [phone] Eliceo Gómez DO Unavailable [phone] Juan Damico DO Unavailable [phone] Encounter Details Date Type Department Care Team (Late st Contact Info) Description 03/06/2025 Abstract [facility] FM [address] [facility] 230 [place] [address] Eliceo Gómez DO [address] [facility] [address] [place] [address] Social History Tobacco Use Types Packs/Day Years [...] you attend chur or samaritan services? Never 05/01/2024 Do you belong to any clubs o r organizations such as scientologist groups, unions, fraternal or athletic groups, or [...] Recorded Patient Health Questionnaire-2 Score 0 01/20/2025 [facility] of Occupat ionky Health - Occupational Stress Questionnaire Answer Date [...] any time in the past 12 m [facility], were you homeless or living in [...] DERM [address] [place] [address] Nelsy Harris, MEDICAL ADMINISTRATIVE TECHNICIAN-SHOE CEMENTER [address] [place] [address] documented as of this encounter Visit Diagnoses Not on filedocumented in this encounter Additional Health Concerns Assessment Noted Time PHQ-9 Depression Total Score: 0 01/21/20 25 1:00 PM EDT documented as of this encounter Care Teams Manager Maintenance Relationship Specialty Start Date End Date Eliceo Gómez DO [address] [place] [address] PCP - General Family Medicine 04/04/23 Eliceo Gómez DO [address] [place] [address] PCP - [facility] 05/06/2310/05 Juan Damico DO [address] [place] [address] Referring Physician Obstetrics and Gynecology 05/20/24 documented as of this encounter
--- OUTSIDE RECORDS SUMMARY | 2025-04-14 07:27 | XMS_ITS | Encounter Summary ---
Author Organization [facility] Address [address] [place] [address] Care Team Providers Care Services Executive Name Role Phone Eliceo Gómez DO Primary Care Provider [phone] Eliceo Gómez DO Unavailable [phone] Beata Hernandez Unavailable Juan Damico DO Unavailable [phone] Encounter Details Date Type Department Care Team [...] often do you attend chur ch or yazidi services? Never 04/14/2023 Do you belong to any clubs o r organizations such as baptism groups, unions, fraternal or athletic groups, or [...] Recorded Patient Health Questionnaire-2 Score 0 10/03/2023 [facility] - Occupational Stress Questionnaire Answer Date [...] in a custodial (including now)? No 10/25/2023 Comments No Sex [...] DERM [address] [place] [address] Nelsy Harris APRN-PLATEMAKER [address] [place] [address] documented as of this encounter Procedures Procedure Name Priority Date/Time Associated Diagnosis Comments ECG 12-LEAD 11/03/2023 8:38 AM EST documented in this encounter Results * ECG 12-LEAD (11/03/2023 8:38 AM EST) Anatomical Region Laterality Modality Other 11/03/2023 8:38 AM EST Narrative 11/06/2023 5:22 PM EST The [address] [address] Electrocardiograph Report Signed Patient: ELSIE FUENTES MR#: [id number] : 1970 Acct:[id number] Age/Sex: 53 / F ADM Date: Loc: SURGOUT Attending Dr: Sade Felix D.P.M. Ordering Physician: Saed Felix D.P.M. Date of Service: 11/03/23 Procedure(s): ECG 12 lead Accession Number(s): [id number] cc: [facility] Test Date: 2023-11-03 Pat Name: ELSIE FUENTES Department: Room: - Gender: Female Quality Control Tech Raw Materials: : 1970 Requested By: SADE FELIX Order Number: [id number] Reading MD: RIGO EUCEDA Measurements Intervals [place] Rate: 52 P: -2 OR: 171 QRS: 9 QRSD: 92 T: 8 QT: 437 QTc: 410 Interpretive Statements SINUS BRADYCARDIA WITH SINUS ARRHYTHMIA No previous ECG available for comparison Electronically Signed On 11-06-2023 17:22:20 EST by RIGO EUCEDA Dictated By: Rigo Euceda D.O. Signed By: 11/06/23 1722 DD/ 0838 TD/TT: Bilingual Teacher Aide: Procedure Note Radiology, Radiologist, MD - 11/06/2023 [place] [address] Electrocardiograph Report Signed Patient: ELSIE FUENTES DMR#: [id number] : 1970Acct:[id number] Age/Sex: 53 / FADM Date: Loc: SURGOUT Attending Dr: Sade Felix D.P.M. Ordering Physician: Sade Felix D.P.M. Date of Service: 11/03/23 Procedure(s): ECG 12 lead Accession Number(s): [id number] cc: The [facility] Test Date: 2023-11-03 Pat Name: ELSIE FUENTES Department: Room: - Gender: Female Quality Control Tech Raw Materials: : 1970 Requested By: SADE FELIX Order Number: [id number] Reading MD: RIGO EUCEDA Measurements Intervals [place] Rate: 52 P: -2 OR: 171 QRS: 9 QRSD: 92 T: 8 QT: 437 QTc: 410 Interpretive Statements SINUS BRADYCARDIA WITH SINUS ARRHYTHMIA No previous ECG available for comparison Electronically Signed On 11-06-2023 17:22:20 EST by RIGO EUCEDA Dictated By: Rigo Euceda D.O. Signed By:11/06/23 1722 DD/ 0838 TD/TT: Bilingual Teacher Aide: us Generic External Data Provider [facility] Final Result documented in this encounter Visit Diagnoses Not on filedocumented in this encounter Care Teams Services Executive Relationship Specialty Start Date End Date Eliceo Gómez DO [address] [place] [address] PCP - General Family Medicine 04/04/23 Eliceo Gómez DO [address] [place] [address] PCP - [facility] 05/06/2310/05 Beata Hernandez PA [address] [place] [address] Dietitian Nutrition 08/08/23 05/16/24 Juan Damico DO [address] [place] [address] Referring Physician Obstetrics and Gynecology 05/20/24 documented as of this encounter
--- OUTSIDE RECORDS SUMMARY | 2025-04-14 07:27 | XMS_ITS | Encounter Summary ---
Author Organization [facility] Address [address] [facility] [place] [address] Care Team Providers Care Coal Conveyor Operator Name Role Phone Eliceo Gómez DO Primary Care Provider [phone] Eliceo Gómez DO Unavailable [phone] Juan Damico DO Unavailable [phone] Encounter Details Date Type Department Care Team (Late st Contact Info) Description 11/20/2024 Abstract [facility] [address] [facility] 230 [place] [address] Eliceo Gómez DO [address] [facility] [address] [place] [address] Social History Tobacco Use Types Packs/Day Years [...] any clubs o r organizations such as restorationist groups, unions, fraternal or athletic groups, or [...] Recorded Patient Health Questionnaire-2 Score 0 07/11/2024 [facility] of Occupat ionnc Health - [...] a skilled nursing (including now)? No 10/25/2023 Housing Stability Vital [...] were you homeless or living in a skilled nursing (including now)? No 05/01/2024 Comments No Sex [...] DERM [address] [place] [address] Nelsy Harris, RELIGION TEACHER-DIRT BIKE RACER [address] [place] [address] documented as of this encounter Visit Diagnoses Not on filedocumented in this encounter Care Teams Coal Conveyor Operator Relationship Specialty Start Date End Date Eliceo Gómez, DO [address] [place] [address] PCP - General Family Medicine 04/04/23 Eliceo Gómez, DO [address] [place] [address] PCP - [facility] 05/06/2310/05 Juan Damico, DO [address] [place] [address] Referring Physician Obstetrics and Gynecology 05/20/24 documented as of this encounter
--- OUTSIDE RECORDS SUMMARY | 2025-04-14 07:27 | XMS_ITS | Encounter Summary ---
Author Organization [facility] Address [address] [facility] [place] [address] Care Team Providers Care Bobbin Winder Tender Name Role Phone Eliceo Gómez DO Primary Care Provider [phone] Eliceo Gómez DO Unavailable [phone] Juan Damico DO Unavailable [phone] Encounter Details Date Type Department Care Team (Late st Contact Info) Description 01/30/2025 Abstract [facility] FM [address] [facility] [address] [place] [address] Eliceo Gómez DO [address] [facility] 230 [place] [address] Social History Tobacco Use Types Packs/Day Years [...] you attend chur or orthodoxy services? Never 05/01/2024 Do you belong to [...] Recorded Patient Health Questionnaire-2 Score 0 01/20/2025 [facility] of Occupat ionla Health - Occupational Stress Questionnaire Answer Date [...] a group home (including now)? No 10/25/2023 Housing Stability [...] any time in the past 12 m [facility], were you homeless or living in a group home (including now)? No 05/01/2024 Comments No [...] DERM [address] [place] [address] Nelsy Harris, RN ENT-PROPERTY MASTER [address] [place] [address] documented as of this encounter Visit Diagnoses Not on filedocumented in this encounter Additional Health Concerns Assessment Noted Time PHQ-9 Depression Total Score: 0 01/21/20 25 1:00 PM EDT documented as of this encounter Care Teams Bobbin Winder Tender Relationship Specialty Start Date End Date Eliceo Gómez DO [address] [place] [address] PCP - General Family Medicine 04/04/23 Eliceo Gómez DO [address] [place] [address] PCP - [facility] 05/06/2310/05 Juan Damico DO [address] [place] [address] Referring Physician Obstetrics and Gynecology 05/20/24 documented as of this encounter
--- OUTSIDE RECORDS SUMMARY | 2025-04-14 07:27 | XMS_ITS | Encounter Summary ---
Author Organization [facility] Address [address] [place] [address] Care Team Providers Care System Administration Manager Name Role Phone Eliceo Gómez DO Primary Care Provider [phone] Eliceo Gómez DO Unavailable [phone] Juan Damico DO Unavailable [phone] Encounter Details Date Type Department Care Team [...] How often do you attend chur or orthodox services? Never 05/01/2024 Do you belong to [...] Health Questionnaire-2 Score 0 07/11/2024 [facility] of Occupat ional Health - Occupational [...] time in the past 12 m [facility], were you homeless or living [...] DERM [address] [place] [address] Nelsy Harris APRN-LEARNING AND DEVELOPMENT ANALYST [address] [place] [address] documented as of this encounter Procedures Procedure Name Priority Date/Time Associated Diagnosis Comments XR FOOT RT MIN 3V 08/01/2024 5:0 1 AM EDT documented in this encounter Results * XR FOOT RT MIN 3V (08/01/2024 5:01 AM EDT) Anatomical Region Laterality Modality Other 08/01/2024 5:01 AM EDT Narrative 08/01/2024 5:04 [place] [address] XRay Report Signed Patient: ELSIE FUENTES MR#: [id number] : 1970 Acct:[id number] Age/Sex: 54 / F ADM Date: 07/30/24 Loc: EC Attending Dr: Sade Felix D.P.M. Ordering Physician: Sade Felix D.P.M. Date of Service: 07/30/24 Procedure(s): XR foot RT min 3V Accession Number(s): [id number] cc: Sade Felix D.P.M.; Isatu GÓMEZ [place] [address] Patient Name: ELSIE FUENTES MRN: [id number] date: 1970 Sex: F Assigned Patient Location: Current Patient Location: Accession/Order Number: [id number] Exam Date: 07/30/2024 09:46 Report Date: 08/01/2024 [...] Dictated By: Adam Oliveros M.D. Signed By: 08/01/24503 DD/ 0 TD/TT: Hand Tennis Ball Coverer: Procedure Note Radiology, Radiologist, MD - 08/01/2024 [place] [address] XRay Report Signed Patient: ELSIE FUENTES DMR#: [id number] : 1970Acct:[id number] Age/Sex: 54 / FADM Date: 07/30/24 Loc: EC Attending Dr: Sade Felix D.P.M. Ordering Physician: Sade Felix D.P.M. Date of Service: 07/30/24 Procedure(s): XR foot RT min 3V Accession Number(s): [id number] cc: Sade Felix D.P.M.; Isatu GÓMEZ [place] [address] Patient Name: ELSIE FUENTES MRN: [id number] date: 1970 Sex: F Assigned Patient Location: Current Patient Location: Accession/Order Number: [id number] Exam Date: 07/30/2024 09:46 Report Date: 08/01/2024 [...] M.D. Signed By:08/01/24 0504 DD/ 050 TD/TT: Hand Tennis Ball Coverer: us Generic External Data Provider [facility] Final Result documented in this encounter Visit Diagnoses Not on filedocumented in this encounter Care Teams System Administration Manager Relationship Specialty Start Date End Date Eliceo Gómez DO [address] [place] [address] PCP - General Family Medicine 04/04/23 Eliceo Gómez DO [address] [place] [address] PCP - [facility] 05/06/2310/05 Juan Damico DO [address] [place] [address] Referring Physician Obstetrics and Gynecology 05/20/24 documented as of this encounter
--- OUTSIDE RECORDS SUMMARY | 2025-04-14 07:27 | XMS_ITS | Encounter Summary ---
Author Organization [facility] Address [address] [place] [address] Care Team Providers Care Manager Restaurant Name Role Phone HernandezEliceo randolph Asiya DO Primary Care Provider Eliceo Gómez DO Unavailable [phone] Beata Hernandez Unavailable Juan Damico DO Unavailable [phone] Encounter Details Date Type Department Care Team (Late st Contact Info) Description 10/25/2023 Orders Only [facility] [address] [place] [address] Jacob Felix MD [address] [place] [address] [place] [address] Social History Tobacco Use Types Packs/Day Years [...] any clubs o r organizations such as pentecostalism groups, unions, fraternal or athletic groups, or [...] Recorded Patient Health Questionnaire-2 Score 0 10/03/2023 [facility] of Occupat ional Health - Occupational [...] slept in a residential (including now)? No 10/25/2023 Comments No Sex [...] DERM [address] [place] [address] Nelsy Harris APRN-KWESI [address] [place] [address] documented as of this encounter [...] filedocumented in this encounter Care Teams Manager Restaurant Relationship Specialty Start Date End Date Eliceo Gómez DO [address] [place] [address] PCP - General Family Medicine 04/04/23 Eliceo Gómez DO [address] [place] [address] PCP - [facility] 05/06/2310/05 Beata Hernandez PA [address] [place] [address] Dietitian Nutrition 08/08/23 05/16/24 Juan Damico DO [address] [place] [address] Referring Physician Obstetrics and Gynecology 05/20/24 documented as of this encounter
--- OUTSIDE RECORDS SUMMARY | 2025-04-14 07:27 | XMS_ITS | Encounter Summary ---
Author Organization [facility] Address [address] [place] [address] Care Team Providers Care Milk Vendor Name Role Phone Eliceo Gómez DO Primary Care Provider [phone] Eliceo Gómez DO Unavailable [phone] Beata Hernandez Unavailable Juan Damico DO Unavailable [phone] Encounter Details Date Type Department Care Team [...] often do you attend chur ch or advent services? Never 04/14/2023 Do you belong to any clubs o r organizations such as alevism groups, unions, fraternal or athletic groups, or [...] Recorded Patient Health Questionnaire-2 Score 0 10/03/2023 [facility] - Occupational Stress Questionnaire Answer [...] DERM [address] [place] [address] Nelsy Harris, BRAND PLANNER-MAGNETIC RESONANCE IMAGING DIRECTOR [address] [place] [address] documented as of this encounter Procedures Procedure Name Priority Date/Time Associated Diagnosis Comments XR FOOT RT MIN 3V 10/25/2023 1:2 9 PM EST documented in this encounter Results * XR FOOT RT MIN 3V (10/25/2023 1:29 PM EST) Anatomical Region Laterality Modality Other 10/25/2023 1:29 PM EST Narrative 10/25/2023 1:31 PM EST The [address] [address] XRay Report Signed Patient: MARY FUENTES MR#: [id number] : 1970 Acct:[id number] Age/Sex: 53 / F ADM Date: 10/25/23 Loc: RAD Attending Dr: Sade Felix D.P.M. Ordering Physician: Sade Felix D.P.M. Date of Service: 10/25/23 Procedure(s): XR foot RT min 3V Accession Number(s): [id number] cc: Sade Felix D.P.M.; Isatu GÓMEZ The [address] [address] Patient Name: MARY FUENTES MRN: [id number] date: 1970 Sex: F Assigned Patient Location: [facility] Current Patient Location: [facility] Accession/Order Number: [id number] Exam Date: 10/25/2023 09:09 Report Date: 10/25/2023 13:29 At the request of: SADE FELIX Procedure: XR foot RT min 3V PROCEDURE: XR foot RT min 3V DATE: 10/25/2023 8:09 AM SECONDARY SPANISH TEACHER COMPARISONS: 09/13/2023 CLINICAL INDICATION: RIGHT FOOT F/U [...] By: Deisy Grajeda M.D. Signed By: 10/25/23 3740 DD/ 1329 TD/TT: Submarine Advisory Team Watch Officer: Procedure Note Radiology, Radiologist, - 01/10/[address] [address] XRay Report Signed Patient: MARY FUENTES DMR#: [id number] : 1970Acct:[id number] Age/Sex: 53 / FADM Date: 10/25/23 Loc: RAD Attending Dr: Sade Felix D.P.M. Ordering Physician: Sade Felix D.P.M. Date of Service: 10/25/23 Procedure(s): XR foot RT min 3V Accession Number(s): [id number] cc: Sade Felix D.P.M.; Isatu GÓMEZ The [place] [id number] Patient Name: MARY FUENTES MRN: [id number] date: 1970 Sex: F Assigned Patient Location: [facility] Current Patient Location: [facility] Accession/Order Number: [id number] Exam Date: 10/25/2023 09:09 Report Date: 10/25/2023 13:29 At the request of: SADE FELIX Procedure: XR foot RT min 3V PROCEDURE: XR foot RT min 3V DATE: 10/25/2023 8:09 AM SECONDARY SPANISH TEACHER COMPARISONS: 09/13/2023 CLINICAL INDICATION: RIGHT FOOT F/U [...] Dictated By: Deisy Grajeda M.D. Signed By:10/25/23 1337 DD/ 1329 TD/TT: Submarine Advisory Team Watch Officer: us Generic External Data Provider [facility] Final Result documented in this encounter Visit Diagnoses Not on filedocumented in this encounter Care Teams Milk Vendor Relationship Specialty Start Date End Date Eliceo Gómez DO [address] [place] [address] PCP - General Family Medicine 04/04/23 Eliceo Gómez DO [address] [place] [address] PCP - [facility] 05/06/2310/05 Beata Hernandez PA [address] [place] [address] Dietitian Nutrition 08/08/23 05/16/24 Juan Damico DO [address] [place] [address] Referring Physician Obstetrics and Gynecology 05/20/24 documented as of this encounter
--- OUTSIDE RECORDS SUMMARY | 2025-04-14 07:27 | XMS_ITS | Encounter Summary ---
Author Organization [facility] Address [address] [facility] [place] [address] Care Team Providers Care Process Developer Name Role Phone Eliceo Gómez DO Primary Care Provider [phone] Eliceo Gómez DO Unavailable [phone] Juan Damico DO Unavailable Encounter Details Date Type Department Care Team (Late st Contact Info) Description 12/26/2024 Abstract [facility] [address] [facility] [address] [place] [address] Eliceo Gómez DO [address] [facility] [address] [place] [address] Social History Tobacco Use Types Packs/Day Years [...] you attend chur or spiritism services? Never 05/01/2024 Do you belong to [...] [facility] of Occupat ionsc Health - [...] any time in the past 12 m [facility], were you homeless or [...] [address] [place] [address] Nelsy Harris, CUSTOMER CARE ASSOCIATE-TRANSACTIONAL PARALEGAL [address] [place] [address] documented as of this encounter Visit Diagnoses Not on filedocumented in this encounter Care Teams Process Developer Relationship Specialty Start Date End Date Eliceo Gómez, DO [address] [place] [address] PCP - General Family Medicine 04/04/23 Eliceo Gómez, DO [address] [place] [address] PCP - [facility] 05/06/2310/05 Juan Damico, DO [address] [place] [address] Referring Physician Obstetrics and Gynecology 05/20/24 documented as of this encounter
--- OUTSIDE RECORDS SUMMARY | 2025-04-14 07:27 | XMS_ITS | Encounter Summary ---
Author Organization [facility] Address [address] [place] [address] Care Team Providers Care Automatic Casting Machine Operator Name Role Phone Eliceo Gómez DO Primary Care Provider [phone] Eliceo Gómez DO Unavailable [phone] Juan Damico DO Unavailable [phone] Encounter Details Date Type Department Care Team [...] you attend chur or alevism services? Never 05/01/2024 Do you belong to any clubs o r organizations such as mormonism groups, unions, fraternal or athletic groups, or [...] Patient Health Questionnaire-2 Score 0 07/11/2024 [facility] of Occupat ional Health - Occupational [...] any time in the past 12 m [facility], were you homeless or living in a [...] DERM [address] [place] [address] Nelsy Harris APRN-QUALITY ASSURANCE SUPERVISOR TRIM [address] [place] [address] documented as of this encounter Procedures Procedure Name Priority Date/Time Associated Diagnosis Comments XR THORACIC SPINE 2 VIEWS 07/13/2024 8:07 AM EDT documented in this encounter Results * XR thoracic spine 2 views (07/13/2024 8:07 AM EDT) Anatomical Region Laterality Modality Spine, T-spine Radiographic Ira ging 07/13/2024 8:07 AM EDT Narrative 07/13/2024 8:09 [place] [address] XRay Report Signed Patient: MARY FUENTES MR#: [id number] : 1970 Acct:[id number] Age/Sex: 54 / F ADM Date: 07/12/24 Loc: [facility] Attending Dr: Jess Black NP Ordering Physician: Jess Black NP Date of Service: 07/12/24 Procedure(s): XR thoracic spine 2V Accession Number(s): [id number] cc: Jess Black NP; Isatu GÓMEZ [place] [address] Patient Name: MARY FUENTES MRN: [id number] date: 1970 Sex: F Assigned Patient Location: [facility] Current Patient Location: Accession/Order Number: [id number] Exam Date: 07/12/2024 10:50 Report Date: 07/13/2024 [...] M.D. Signed By: 07/13/24808 DD/ 6 TD/TT: Cover Making Machine Operator: Procedure Note Radiology, Radiologist, - 07/13/2024 [place] [address] XRay Report Signed Patient: MARY FUENTES DMR#: [id number] : 1970Acct:[id number] Age/Sex: 54 / FADM Date: 07/12/24 Loc: RAD Attending Dr: Jess Black NP Ordering Physician: Jess Black NP Date of Service: 07/12/24 Procedure(s): XR thoracic spine 2V Accession Number(s): [id number] cc: Jess Black NP; Isatu GÓMEZ The [place] [address] Patient Name: MARY FUENTES MRN: [id number] date: 1970 Sex: F Assigned Patient Location: [facility] Current Patient Location: Accession/Order Number: [id number] Exam Date: 07/12/2024 10:50 Report Date: 07/13/2024 [...] By: Adam Oliveros M.D. Signed By:07/13/24808 DD/ 0807 TD/TT: Cover Making Machine Operator: us Generic External Data Provider IMG XR PROCEDURES Final Result documented in this encounter Visit Diagnoses Not on filedocumented in this encounter Care Teams Automatic Casting Machine Operator Relationship Specialty Start Date End Date Eliceo Gómez DO [address] [place] [address] PCP - General Family Medicine 04/04/23 Eliceo Gómez DO [address] [place] [address] PCP - [facility] 05/06/2310/05 Juan Damico DO [address] [place] [address] Referring Physician Obstetrics and Gynecology 05/20/24 documented as of this encounter
--- OUTSIDE RECORDS SUMMARY | 2025-04-14 07:27 | XMS_ITS | Encounter Summary ---
Author Organization [facility] Address [address] [place] [address] Care Team Providers Care Polysomnographic Technician Name Role Phone Eliceo Gómez DO Primary Care Provider [phone] Eliceo Gómez DO Unavailable [phone] Beata Hernandez Unavailable Juan Damico DO Unavailable [phone] Encounter Details Date Type Department Care Team (Late st Contact Info) Description 07/11/2023 Abstract [facility] [address] [facility] [address] [place] [address] Eliceo Gómez, DO [address] [facility] [address] [place] [address] Social History Tobacco Use Types Packs/Day Years [...] How often do you attend chur or buddhist services? Never 04/14/2023 Do you belong to [...] Score 0 07/06/2023 [facility] [...] [address] [place] [address] Nelsy Harris APRN-NOVELTY WORKER [address] [place] [address] documented as of this encounter Visit Diagnoses Not on filedocumented in this encounter Care Teams Polysomnographic Technician Relationship Specialty Start Date End Date Eliceo Gómez DO [address] [place] [address] PCP - General Family Medicine 04/04/23 Eliceo Gómez DO [address] [facility] [address] [place] [address] PCP - [facility] 05/06/2310/05 Beata Hernandez PA [address] [facility] [place] [address] Dietitian Nutrition 08/08/23 05/16/24 Juan Damico DO [address] [facility] [place] [address] Referring Physician Obstetrics and Gynecology 05/20/24 documented as of this encounter
--- OUTSIDE RECORDS SUMMARY | 2025-04-14 07:27 | XMS_ITS | Encounter Summary ---
Author Organization [facility] Address [address] [facility] [place] [address] Care Team Providers Care Cable Dispatcher Name Role Phone Eliceo Gómez DO Primary Care Provider [phone] Eliceo Gómez DO Unavailable [phone] Juan Damico DO Unavailable [phone] Encounter Details Date Type Department Care Team (Late st Contact Info) Description 10/07/2024 Abstract [facility] [address] [facility] [address] [place] [address] Eliceo Gómez DO [address] [facility] [address] [place] [address] Social History Tobacco Use Types Packs/Day Years [...] you attend chur or latter-day services? Never 05/01/2024 Do you belong to [...] Score 0 07/11/2024 [facility] of Occupat ionor Health - Occupational Stress Questionnaire Answer Date [...] DERM [address] [place] [address] Nelsy Harris, FARM REPORTER-CAREER BASED INTERVENTION COORDINATOR [address] [place] [address] documented as of this encounter Visit Diagnoses Not on filedocumented in this encounter Care Teams Cable Dispatcher Relationship Specialty Start Date End Date Eliceo Gómez, DO [address] [place] [address] PCP - General Family Medicine 04/04/23 Eliceo Gómez, DO [address] [place] [address] PCP - [facility] 05/06/2310/05 Juan Damico, DO [address] [place] [address] Referring Physician Obstetrics and Gynecology 05/20/24 documented as of this encounter
--- OUTSIDE RECORDS SUMMARY | 2025-04-14 07:27 | XMS_ITS | Encounter Summary ---
Author Organization [facility] Address [address] [facility] [place] [address] Care Team Providers Care Turbine Attendant Name Role Phone Eliceo Gómez DO Primary Care Provider [phone] Eliceo Gómez DO Unavailable [phone] Beata Hernandez Unavailable Juan Damico DO Unavailable [phone] Encounter Details Date Type Department Care Team (Late st Contact Info) Description 11/13/2023 Orders Only [facility] [address] [facility] [facility] [facility] [address] [place] [address] A, Unknown Practice [address] [place] [address] Social History Tobacco Use Types Packs/Day Years [...] How often do you attend chur or holiness services? Never 04/14/2023 Do you belong to [...] in a fdc (including now)? No 10/25/2023 Comments No Sex [...] DERM [address] [place] [address] Nelsy Harris APRN-WAITER/WAITRESS FORMAL [address] [place] [address] documented as of this encounter Procedures Procedure [...] on filedocumented in this encounter Care Teams Turbine Attendant Relationship Specialty Start Date End Date Eliceo Gómez DO [address] [place] [address] PCP - General Family Medicine 04/04/23 Eliceo Gómez DO [address] [place] [address] PCP - [facility] 05/06/2310/05 Beata Hernandez PA [address] [place] [address] Dietitian Nutrition 08/08/23 05/16/24 Juan Damico DO [address] [place] [address] Referring Physician Obstetrics and Gynecology 05/20/24 documented as of this encounter
--- OUTSIDE RECORDS SUMMARY | 2025-04-14 07:27 | XMS_ITS | Encounter Summary ---
Author Organization [facility] Address [address] [facility] [place] [address] Care Team Providers Care Outdoor Guide Name Role Phone Eliceo Gómez DO Primary Care Provider [phone] Eliceo Gómez DO Unavailable [phone] Juan Damico DO Unavailable [phone] Encounter Details Date Type Department Care Team (Late st Contact Info) Description 10/14/2024 Abstract [facility] [address] [facility] 230 [place] [address] Eliceo Gómez DO [address] [facility] [address] [place] [address] Social History Tobacco Use Types Packs/Day Years [...] you attend chur or buddhist services? Never 05/01/2024 Do you belong to [...] Recorded Patient Health Questionnaire-2 Score 0 07/11/2024 [facility] of Occupat ionmt Health - Occupational Stress Questionnaire Answer Date [...] any time in the past 12 m [facility], were you homeless or living [...] DERM [address] [place] [address] Nelsy Harris, CHAMBER WORKER-CAGE SHIFT MANAGER [address] [place] [address] documented as of this encounter Visit Diagnoses Not on filedocumented in this encounter Care Teams Outdoor Guide Relationship Specialty Start Date End Date Eliceo Gómez, DO [address] [place] [address] PCP - General Family Medicine 04/04/23 Eliceo Gómez, DO [address] [place] [address] PCP - [facility] 05/06/2310/05 Juan Damico, DO [address] [place] [address] Referring Physician Obstetrics and Gynecology 05/20/24 documented as of this encounter
--- OUTSIDE RECORDS SUMMARY | 2025-04-14 07:27 | XMS_ITS | Encounter Summary ---
Author Organization [facility] Address [address] [facility] [place] [address] Care Team Providers Care Tomb Maker Helper Name Role Phone Eliceo Gómez DO Primary Care Provider [phone] Eliceo Gómez DO Unavailable [phone] Juan Damico DO Unavailable [phone] Encounter Details Date Type Department Care Team (Late st Contact Info) Description 03/17/2025 Abstract [facility] [address] [facility] 230 [place] [address] Eliceo Gómez DO [address] [facility] 230 [place] [address] Social History Tobacco Use Types Packs/Day Years [...] Recorded Patient Health Questionnaire-2 Score 0 01/20/2025 [facility] of Occupat ionmn Health - Occupational Stress [...] any time in the past 12 m [facility], were you homeless or living [...] DERM [address] [place] [address] Nelsy Harris, RADIATION THERAPY TECHNICIAN-CHIEF QUALITY OFFICER [address] [place] [address] documented as of this encounter Visit Diagnoses Not on filedocumented in this encounter Additional Health Concerns Assessment Noted Time PHQ-9 Depression Total Score: 0 01/21/20 25 1:00 PM EDT documented as of this encounter Care Teams Tomb Maker Helper Relationship Specialty Start Date End Date Eliceo Gómez DO [address] [place] [address] PCP - General Family Medicine 04/04/23 Eliceo Gómez DO [address] [place] [address] PCP - [facility] 05/06/2310/05 Juan Damico DO [address] [place] [address] Referring Physician Obstetrics and Gynecology 05/20/24 documented as of this encounter
--- OUTSIDE RECORDS SUMMARY | 2025-04-14 07:27 | XMS_ITS | Encounter Summary ---
Author Organization [facility] Address [address] [place] [address] Care Team Providers Care Administration Vice President Name Role Phone Eliceo Gómez DO Primary Care Provider [phone] Eliceo Gómez DO Unavailable [phone] Beata Hernandez Unavailable Juan Damico DO Unavailable [phone] Encounter Details Date Type Department Care Team (Late st Contact Info) Description 07/28/2023 Orders Only [facility] [address] [facility] [address] [place] [address] A, Unknown Practice [address] [place] [address] Social History Tobacco Use Types Packs/Day Years [...] any clubs o r organizations such as hindu groups, unions, fraternal or athletic groups, or [...] Patient Health Questionnaire-2 Score 0 07/06/2023 [facility] - Occupational Stress Questionnaire Answer Date [...] DERM [address] [place] [address] Nelsy Harris APRN-INSTRUCTIONAL DESIGN TECHNOLOGIST [address] [place] [address] documented as of this encounter [...] on filedocumented in this encounter Care Teams Administration Vice President Relationship Specialty Start Date End Date Eliceo Gómez DO [address] [place] [address] PCP - General Family Medicine 04/04/23 Eliceo Gómez DO [address] [place] [address] PCP - [facility] 05/06/2310/05 Beata Hernandez PA [address] [place] [address] Dietitian Nutrition 08/08/23 05/16/24 Juan Damico, DO [address] [place] [address] Referring Physician Obstetrics and Gynecology 05/20/24 documented as of this encounter
--- OUTSIDE RECORDS SUMMARY | 2025-04-14 07:27 | XMS_ITS | Encounter Summary ---
Author Organization [facility] Address [address] [place] [address] Care Team Providers Care Inserting Operator Name Role Phone Eliceo Gómez DO Primary Care Provider [phone] Eliceo Gómez DO Unavailable [phone] Beata Hernandez Unavailable Juan Damico DO Unavailable [phone] Encounter Details Date Type Department Care Team [...] often do you attend chur ch or gnosticist services? Never 04/14/2023 Do you belong to [...] Patient Health Questionnaire-2 Score 0 10/03/2023 [facility] - Occupational Stress Questionnaire Answer Date [...] DERM [address] [place] [address] Nelsy Harris APRN-DIRECTOR FOOD AND BEVERAGE [address] [place] [address] documented as of this encounter Procedures Procedure Name Priority Date/Time Associated Diagnosis Comments XR FOOT RT MIN 3V 11/13/2023 12: 52 PM EST documented in this encounter Results * XR FOOT RT MIN 3V (11/13/2023 12:52 PM EST) Anatomical Region Laterality Modality Other 11/13/2023 12:5 2 PM EST Narrative 11/13/2023 12:54 PM EST The [address] [address] XRay Report Signed Patient: MARY FUENTES MR#: [id number] : 1970 Acct:[id number] Age/Sex: 53 / F ADM Date: 11/13/23 Loc: SURGOUT Attending Dr: Jacob Felix D.P.M. Ordering Physician: Ritchie Gonzalez D.P.M. Date of Service: 11/13/23 Procedure(s): XR foot RT min 3V Accession Number(s): [id number] cc: Isatu GÓMEZ ; Ritchie Gonzalez D.P.M. The [place] [address] Patient Name: MARY FUENTES MRN: [id number] date: 1970 Sex: F Assigned Patient Location: [facility] Current Patient Location: Accession/Order Number: [id number] Exam Date: 11/13/2023 11:30 Report Date: 11/13/2023 [...] Signed By: 11/13/23 1254 DD/ 1252 TD/TT: Director Of Business Applications: Procedure Note Radiology, Radiologist, MD - 01/10/2024 [place] [address] XRay Report Signed Patient: MARY FUENTES DMR#: [id number] : 1970Acct:[id number] Age/Sex: 53 / FADM Date: 11/13/23 Loc: SURGOUT Attending Dr: Jacob Felix D.P.M. Ordering Physician: Ritchie Gonzalez D.P.M. Date of Service: 11/13/23 Procedure(s): XR foot RT min 3V Accession Number(s): [id number] cc: Isatu GÓMEZ ; Ritchie Gonzalez D.P.M. [place] [address] Patient Name: MARY FUENTES MRN: [id number] date: 1970 Sex: F Assigned Patient Location: [facility] Current Patient Location: Accession/Order Number: [id number] Exam Date: 11/13/2023 11:30 Report Date: 11/13/2023 [...] Nicki Dacosta M.D. Signed By:11/13/23 1254 DD/ 1252 TD/TT: Director Of Business Applications: Generic External Data Provider [facility] Final Result documented in this encounter Visit Diagnoses Not on filedocumented in this encounter Care Teams Inserting Operator Relationship Specialty Start Date End Date Eliceo Gómez DO [address] [facility] [address] [place] [id number] PCP - General Family Medicine 04/04/23 Eliceo Gómez DO [address] [place] [address] PCP - [facility] 05/06/2310/05 Beata Hernandez PA [address] [place] [address] Dietitian Nutrition 08/08/23 05/16/24 Juan Damico DO [address] [place] [address] Referring Physician Obstetrics and Gynecology 05/20/24 documented as of this encounter
--- OUTSIDE RECORDS SUMMARY | 2025-04-14 07:27 | XMS_ITS | Encounter Summary ---
Author Organization [facility] Address [address] [place] [address] Care Team Providers Care Tax Evaluator Name Role Phone Eliceo Gómez DO Primary Care Provider [phone] Eliceo Gómez DO Unavailable [phone] Beata Hernandez Unavailable Juan Damico DO Unavailable [phone] Encounter Details Date Type Department Care Team [...] often do you attend chur ch or buddhism services? Never 04/14/2023 Do you belong to any clubs o r organizations such as faith groups, unions, fraternal or athletic groups, or [...] Recorded Patient Health Questionnaire-2 Score 0 07/06/2023 [facility] - Occupational Stress Questionnaire Answer [...] DERM [address] [place] [address] Nelsy Harris APRN-BASEBALL INSPECTOR [address] [place] [address] documented as of this encounter Procedures Procedure Name Priority Date/Time Associated Diagnosis Comments XR FOOT RT MIN 3V 08/03/2023 2:3 8 PM EDT documented in this encounter Results * XR FOOT RT MIN 3V (08/03/2023 2:38 PM EDT) Anatomical Region Laterality Modality Other 08/03/2023 2:38 PM EDT Narrative 08/03/2023 2:38 PM EDT [address] [address] XRay Report Signed Patient: MARY FUENTES MR#: [id number] : 1970 Acct:[id number] Age/Sex: 53 / F ADM Date: Loc: RAD Attending Dr: Sade Felix D.P.M. Ordering Physician: Sade Felix M.D. Date of Service: 08/03/23 Procedure(s): XR foot RT min 3V Accession Number(s): [id number] cc: Sade Felix M.D.; Isatu GÓMEZ [place] [address] Patient Name: MARY FUENTES MRN: [id number] date: 1970 Sex: F Assigned Patient Location: [facility] Current Patient Location: [facility] Accession/Order Number: [id number] Exam Date: 08/03/2023 13:35 Report Date: 08/03/2023 14:38 At the request of: SADE FELIX Procedure: XR foot RT min 3V STUDY: XR foot RT min 3V, [id number] HISTORY: RIGHT FOOT PAIN COMPARISON: Right foot [...] Signed By: 08/03/23 1441 DD/ 1438 TD/TT: Auto Haulaway Driver: Procedure Note Radiology, Radiologist, - 08/03/2023 [place] [address] XRay Report Signed Patient: MARY FUENTES DMR#: [id number] : 1970Acct:[id number] Age/Sex: 53 / FADM Date: Loc: RAD Attending Dr: Sade Felix D.P.M. Ordering Physician: Sade Felix M.D. Date of Service: 08/03/23 Procedure(s): XR foot RT min 3V Accession Number(s): [id number] cc: Sade Felix M.D.; Isatu GÓMEZ The [place] [address] Patient Name: MARY FUENTES MRN: [id number] date: 1970 Sex: F Assigned Patient Location: [facility] Current Patient Location: [facility] Accession/Order Number: [id number] Exam Date: 08/03/2023 13:35 Report Date: 08/03/2023 14:38 At the request of: SADE FELIX Procedure: XR foot RT min 3V STUDY: XR foot RT min 3V, [id number] HISTORY: RIGHT FOOT PAIN COMPARISON: Right foot [...] Yang Signed By:08/03/23 1441 DD/ 1438 TD/TT: Auto Haulaway Driver: us Generic External Data Provider [facility] Final Result documented in this encounter Visit Diagnoses Not on filedocumented in this encounter Care Teams Tax Evaluator Relationship Specialty Start Date End Date Eliceo Gómez DO [address] [place] [address] PCP - General Family Medicine 04/04/23 Eliceo Gómez DO [address] [place] [address] PCP - [facility] 05/06/2310/05 Beata Hernandez PA [address] [place] [address] Dietitian Nutrition 08/08/23 05/16/24 Juan Damico DO [address] [place] [address] Referring Physician Obstetrics and Gynecology 05/20/24 documented as of this encounter
--- OUTSIDE RECORDS SUMMARY | 2025-04-14 07:27 | XMS_ITS | Encounter Summary ---
Author Organization [facility] Address [address] [facility] [place] [address] Care Team Providers Care Vessel Engineer Name Role Phone Eliceo Gómez DO Primary Care Provider [phone] Eliceo Gómez DO Unavailable [phone] Juan Damico DO Unavailable [phone] Encounter Details Date Type Department Care Team (Late st Contact Info) Description 10/24/2024 Abstract [facility] [address] [facility] [address] [place] [address] Eliceo Gómez DO [address] [facility] [address] [place] [address] Social History Tobacco Use Types Packs/Day Years [...] you attend chur or sabianism services? Never 05/01/2024 Do you belong to [...] Recorded Patient Health Questionnaire-2 Score 0 07/11/2024 [facility] - Occupational Stress Questionnaire Answer Date [...] DERM [address] [place] [address] Nelsy Harris, DEATH CLEARANCE COORDINATOR-FINANCIAL SERVICES REPRESENTATIVE [address] [place] [address] documented as of this encounter Visit Diagnoses Not on filedocumented in this encounter Care Teams Vessel Engineer Relationship Specialty Start Date End Date Eliceo Gómez, DO [address] [place] [address] PCP - General Family Medicine 04/04/23 Eliceo Gómez, DO [address] [place] [address] PCP - [facility] 05/06/2310/05 Juan Damico, DO [address] [place] [address] Referring Physician Obstetrics and Gynecology 05/20/24 documented as of this encounter
--- OUTSIDE RECORDS SUMMARY | 2025-04-14 07:28 | XMS_ITS | Encounter Summary ---
Author Organization [employer] Address [facility] [id number] [address] [place] [address] Care Team Providers Care Director Of Student Financial Services Name Role Phone Dlaia Morales DO, George R Primary Care Provider + Encounter Details Date Type Department Care Team (Late st Contact Info) Description 12/26[facility]2023 [facility] [address] [place] [address] April Mccarty Social History Tobacco [...] 12/26/2023 12:28 PM EST Patient also sent travayl message regarding the matter. RN sent on [...] down. Please call back and advise, callback#: [phone]. * Telephone Encounter - Pauline Christensen MD - 12/26/2023 12:28 PM EST I will have Yosef the Inspire Rep call her. Thank you documented in this encounter Plan of Treatment Upcoming Encounters Date Type Department Care Team (Late st Contact Info) Description 05/07/2025 7:30 AM EDT Office Visit [facility] Department of [facility] [address] [facility] [address] [place] [address] Soraida Gama PA [address] [facility] [address] [place] [address] documented as of this encounter Visit Diagnoses Not on filedocumented in this encounter Additional Health Concerns Assessment Noted Time PHQ-9 Depression Total Score: 0 10/23/20 23 1:26 PM EST documented as of this encounter Care Teams Director Of Student Financial Services Relationship Specialty Start Date End Date Eliceo Gómez Jr., DO [address] [place] [address], [address], [place] [address] PCP - General Family Medicine 12/11/19 Jenna Butler [address] [place] [address] Consulting Physician Behavioral Health 12/20/23 documented as of this encounter
--- OUTSIDE RECORDS SUMMARY | 2025-04-14 07:28 | XMS_ITS | Encounter Summary ---
Author Organization [facility] Address [address] [place] [address] Care Team Providers Care Glost Kiln Operator Name Role Phone Eliceo Gómez DO Primary Care Provider Eliceo Gómez DO Unavailable [phone] Beata Hernandez Unavailable Juan Damico DO Unavailable [phone] Encounter Details Date Type Department Care Team (Late st Contact Info) Description 05/22/2023 Orders Only [facility] [address] [place] [address] Eliceo Gómez, DO [address] [place] [address] Social History Tobacco Use Types Packs/Day Years [...] you attend chur or temple services? Never 04/14/2023 Do you belong to any clubs o r organizations such as samaritan groups, unions, fraternal or athletic groups, or [...] Recorded Patient Health Questionnaire-2 Score 0 04/06/2023 [facility]at ional Health [...] DERM [address] [place] [address] Nelsy Harris APRN-[employer] NIBS INSPECTOR [address] [place] [address] documented as of this encounter [...] on filedocumented in this encounter Care Teams Glost Kiln Operator Relationship Specialty Start Date End Date Eliceo Gómez DO [address] [place] [address] PCP - General Family Medicine 04/04/23 Eliceo Gómez DO [address] [place] [address] PCP - [facility] 05/06/2310/05 Beata Hernandez PA [address] [place] [address] Dietitian Nutrition 08/08/23 05/16/24 Juan Damico DO [address] [place] [address] Referring Physician Obstetrics and Gynecology 05/20/24 documented as of this encounter
--- OUTSIDE RECORDS SUMMARY | 2025-04-14 07:28 | XMS_ITS | Encounter Summary ---
Author Organization [facility] Address [address] [place] [address] Care Team Providers Care Regulatory Attorney Name Role Phone Eliceo Gómez DO Primary Care Provider [phone] Eliceo Gómez DO Unavailable [phone] Beata Hernandez Unavailable Juan Damico DO Unavailable [phone] Encounter Details Date Type Department Care Team (Late st Contact Info) Description 03/04/2024 Abstract [facility] [address] [facility] [address] [place] [address] Eliceo Gómez, DO [address] [facility] [address] [place] [address] Social History Tobacco Use Types Packs/Day Years [...] you attend chur or yarsanism services? Never 04/14/2023 Do you [...] Recorded Patient Health Questionnaire-2 Score 0 10/03/2023 [facility] ional [facility] - [...] in a m[facility]p (including now)? No 10/25/2023 Comments No Sex [...] DERM [address] [place] [address] Nelsy Harris, HOSPITAL INTERN-MARRIAGE AND FAMILY TEACHER [address] [place], [place] [address] documented as of this encounter Visit Diagnoses Not on filedocumented in this encounter Care Teams Regulatory Attorney Relationship Specialty Start Date End Date Eliceo Gómez DO [address] [place] [address] PCP - General Family Medicine 04/04/23 Eliceo Gómez DO [address] [place] [address] [facility] 05/06/2310/05 Beata Hernandez PA [address] [place] [address] Dietitian Nutrition 08/08/23 05/16/24 Juan Damico, [address] [place] [address] Referring Physician Obstetrics and Gynecology 05/20/24 documented as of this encounter
--- OUTSIDE RECORDS SUMMARY | 2025-04-14 07:28 | XMS_ITS | Clinical Summary ---
Author Organization [facility] Address [address] [place] [address] Care Team Providers Care Aquatics Group Fitness Instructor Name Role Phone Eliceo Gómez DO Primary Care Provider [phone] Eliceo Gómez DO Unavailable [phone] Juan Damico DO Unavailable [phone] Allergies Active Allergy Reactions Criticality Noted Date Comments Poison Brenda Extract Rash Low 04/06/2023 Risperidone 04/22/2019 Other Reaction(s): breast discharge Medications Daridorexant HCl (Quviviq) 50 MG tabletIndication s:Insomnia Take 50 mg by mouth at bedtime Active cholecalciferol (Vitamin D-3) 125 MCG (5000 UT) capsule Take 125 mcg by mouth Daily 4 Active L-Theanine 200 MG capsule Take 1 capsule by mouth Daily Active estradiol (Estrace) 1 MG tabletIndication s:Night sweats Take 1 tablet (1 mg) by mouth Daily 90 tablet 3 4 025 Active colestipol (Colestid) 1 g tablet Take 1 g by mouth in the morning and 1 g in the evening. 4 Active Multiple Vitamin (Daily-Elisa Multivitamin) tablet Take 1 tablet by mouth Daily 4 Active albuterol HFA 90 mcg/act inhalerIndicatio ns:Mild intermittent asthma, unspecified whether complicated (CMS/HCC) Inhale 2 puffs every 4 (four) hours if needed for wheezing 18 g 5 Active atenolol (Tenormin) 50 MG tabletIndication s:Hypertension, unspecified type (CMS/HCC) Take 1 tablet (50 mg) by mouth Daily 90 tablet 1 5 025 Active triamcinolone (Kenalog) 0.1 % creamIndications :Erythema Apply topically 2 (two) times a day 45 g 1 5 Active ARIPiprazole ER (Abilify) 400 MG injection Inject 400 mg into the shoulder, thigh, or buttocks 1 (one) time Active cyproheptadine (Periactin) 4 MG tablet Take 4 mg by mouth as needed at bedtime 5 Active omeprazole (PriLOSEC) [address] capsuleIndicatio ns:Gastro-esopha geal reflux disease without esophagitis Take 1 capsule (40 mg) by mouth in the morning. 90 capsule 3 5 Active losartan (Cozaar) 50 MG tabletIndication s:Hypertension, unspecified type (CMS/HCC) Take 1 tablet (50 mg) by mouth Daily 30 tablet 5 5 Active rOPINIRole (Requip) 2 MG tabletIndication s:Restless legs syndrome Take 1 tablet (2 mg) by mouth at bedtime 5 Active fluticasone (Flonase) 50 MCG/ACT nasal sprayIndications :Disorder of right eustachian tube Administer 2 sprays into each nostril Daily Shake gently. Before first use, prime pump. After use, clean tip and replace cap. 16 g 11 5 026 Active mirtazapine (Remeron) 15 MG tablet 5 Active meloxicam (Mobic) 15 MG tablet TAKE 1 TABLET BY MOUTH EVERY DAY FOR 30 DAYS 5 Active lisdexamfetamine (Vyvanse) 60 MG capsule 5 Active Trelegy Ellipta 100-62.5-25 MCG/ACT aerosol powderIndication s:Mild intermittent asthma, unspecified whether complicated (CMS/HCC) INHALE 1 PUFF BY MOUTH DAILY 60 each 1 5 Active rOPINIRole (Requip) 1 MG tabletIndication s:Restless legs syndrome Take 1 tablet (1 mg) by mouth in the morning and 1 tablet (1 mg) before bedtime. 60 tablet 5 5 Active estradiol (Estrace) 0.1 MG/GM vaginal creamIndications :Hormone replacement therapy,Dyspareu estela in female Apply 0.5g vaginally twice weekly. 42.5 g 5 Active estradiol (Estrace) 0.1 MG/GM vaginal creamIndications :Hormone replacement therapy,Dyspareu estela in female Apply 0.5g vaginally twice weekly. 42.5 g 1 5 025 Discontin ued(Reord er) Active Problems Problem [...] Encounters Date Type Department Care Team Description 04/13/2025 Refill [facility] [address] [place] [address] Hyacinth King, TERRAZZO MECHANIC Mild intermittent asthma, unspecified whether complicated (CMS/[facility]) 04/13/2025 Refill [facility] OB [address] [place] [address] Juan Damico, Erythema 04/10/2025 Refill [facility] OB [address] [place] [address] Nereyda Murphy LPN Hormone replacement therapy; Dyspareunia in female 04/02/2025 Abstract [facility] [address] [place] [address] Eliceo Gómez, 03/17/2025 Abstract [facility] [address] [place] [address] Eliceo Gómez, DO 03/06/2025 Travel 03/06/2025 Abstract [facility] [address] [place] [address] Eliceo Gómez, DO 02/25/2025 Telephone [facility] [address] [place] [address] Eliceo Gómez, DO right ear 02/24/2025 Telephone [facility] [address] [place] [address] Juan Damico, DO 02/20/2025 Telephone [facility] [address] [place] [address] Eliceo Gómez, DO 02/06/2025 Telephone [facility] [address] [place] [address] Bernadine Hilton MA medication update 02/05/2025 Refill [facility] [address] [place] [address] Eliceo Gómez, DO Mild intermittent asthma, unspecified whether complicated (CMS/HCC) 01/30/2025 Abstract [facility] [address] [place] [address] Eliceo Gómez, DO 01/20/2025 2:40 PM EDT Office Visit [facility] [address] [place] [address] Benedicto Salas PA Routine general medical examination at health care facility (Primary Dx) 01/20/2025 1:00 PM EDT Office Visit [facility] [address] [place] [address] Eliceo Gómez, Disorder of right eustachian tube (Primary Dx); Bipolar disorder, current episode depressed, moderate (CMS/HCC); Gastro-esophageal reflux disease without esophagitis; Hypertension, unspecified type (CMS/HCC); Mild intermittent asthma, unspecified whether complicated (CMS/HCC); Restless legs syndrome 01/20/2025 Bamboo flowsheet [facility] [address] [place] [address] Eliceo Gómez DO 01/20/2025 Travel 01/13/2025 Travel from Last 3 Months Immunizations Immunization Administration [...] attend chur ch or rastafari services? Never 05/01/2024 Do you belong to [...] Recorded Patient Health Questionnaire-2 Score 0 01/20/2025 [facility] - Occupational [...] in a long term (including now)? No 10/25/2023 Housing Stability Vital [...] in the past 12 m [facility], were you homeless or living in a long term (including now)? No 05/01/2024 Comments No Sex [...] DERM [address] [place] [address] Nelsy Harris, RISK CONTROL FIELD REPRESENTATIVE-COGNOS BI ADMINISTRATOR [address] [place] [address] Health Maintenance Due Date Last Done Comments Mammogram 10/31/2024 10/31/2023, 09/07, 09/14/2022, Additional history exists Medicare Annual Wellness [...] Procedure Name Priority Date/Time Associated Diagnosis Comments THINPREP IMAGING PAP W/REFL HPV MRNA E6/E7 Routine 06/12/2024 12:00 AM EDT Encounter for Papanicolaou smear of vagina BI MAMMOGRAM SCREENING TOMOSYNTHESIS BILATERAL Routine 10/31/2023 1:06 PM EST Encounter for screening mammogram for malignant neoplasm of breast COLONOSCOPY Routine 03/24/2020 OCC BLD IMMUNOASSAY Routine 03/13/2020 from Last 3 Months or Most Recently Relevant to Health Maintenance Results * THINPREP IMAGING PAP W/REFL HPV MRNA E6/E7 (06/12/2024 12:00 AM EDT) CLINICAL INFORMATION [facility] Comment:HRT LMP [facility] Comment:LAVH BS 2014 PREV. PAP [facility] Comment:NEG PREV. BX [facility] Comment:None given SOURCE [facility] Comment:None given STATEMENT OF ADEQUACY [facility] Comment:SATISFACTORY FOR COLEMAN LUATION INTERPRETATION/RESUL T [facility] Comment: Cytology Results: Negative for intraepithelial lesion or malignancy. COMMENT [facility] Comment: This Pap test has been evaluated with computer assisted technology. INFORMATION ARCHITECT [facility] Comment: EMP, CT(ASCP) CT screening location: [facility], [address] [place] [id number]. (ALWAYS MESSAGE) [facility] Comment: EXPLANATORY NOTE: The [...] Performing Organization Information Site ID: [id number] Name: [facility] Address: [address] [place] [id number] Director: Gopal Hamilton MD Juan Damico DO LAB CYTOLOGY ORDERABLES Emilie cutler Result [facility] * Bilateral screening mammogram with tomosynthesis (10/31/2023 1:06 PM EST) Anatomical Region Laterality Modality Breast Bilateral Mammography 11/07/2023 10:2 9 AM EST Impressions 11/07/2023 1:04 PM EST BIRADS 1 - Negative Follow-up: Routine Screening Mamm . Board Certified Radiologists. Accredited by the ACR and FDA. MAMMOGRAPHY IS VERY IMPORTANT TO YOUR HEALTH. THE [employer] GUIDELINES RECOMMEND THAT WOMEN 40 [...] IS VERY IMPORTANT TO YOUR HEALTH. THE [employer] SOCIETYGUIDELINES RECOMMEND THAT WOMEN 40 YEARS [...] Narrative 03/20/2020 12:00 AM EDT PERFORMED AT [facility] LOCATION:[place] [address] Procedure Note CONVERSION, GENERIC - 03/22/2023 PERFORMED AT [facility] LOCATION:[place] [address] Eliceo Gómez DO ENDOSCOPY PROCEDURE ORDERABLE S Final Result * OCC BLD IMMUNOASSAY (03/13/2020) [facility] Signature OCCULT BLOOD NEGATIVE NEGATIVE [facility] PERFORMING LAB: see note [facility] Comment:[facility]ERLY [facility] - [facility] Laboratory - Mushroom Cultivator Makenna Flores,[place] [address] ,Ext. [phone] 03/13/2020 Eliceo Gómez DO [facility] Final Result Performing Organization Address City/State/[facility] Co de Phone Number [facility] from Last 3 Months or Most Recently Relevant to Health Maintenance Insurance MEDICARE MEDICAID [place] [employer] MEDICARE Care Teams Aquatics Group Fitness Instructor Relationship Specialty Start Date End Date Eliceo Gómez DO [address] [place] [address] PCP - General Family Medicine 04/04/23 Eliceo Gómez DO [address] [place] [address] PCP - [facility] 05/06/2310/05 Juan Damico DO [address] [place] [address] Referring Physician Obstetrics and Gynecology 05/20/24
--- OUTSIDE RECORDS SUMMARY | 2025-04-14 07:28 | XMS_ITS | Encounter Summary ---
Author Organization [facility] Address [address] [facility] [place] [address] Care Team Providers Care Retail Account Executive Name Role Phone Eliceo Gómez DO Primary Care Provider [phone] Eliceo Gómez DO Unavailable [phone] Juan Damico DO Unavailable [phone] Encounter Details Date Type Department Care Team (Late st Contact Info) Description 06/24/2024 Abstract [facility] [address] [facility] 230 [place] [address] Eliceo Gómez DO [address] [facility] [address] [place] [address] Social History Tobacco Use Types Packs/Day Years [...] Recorded Patient Health Questionnaire-2 Score 0 06/12/2024 [facility] [place] [facility] Occupat [facility] Health - Occupational Stress Questionnaire Answer Date [...] any time in the past 12 m [facility], were you homeless or living [...] DERM [address] [place] [address] Nelsy Harris, FAMILY LAW ATTORNEY-CONSTRUCTION QUALITY CONTROL MANAGER [address] [place] [address] documented as of this encounter Visit Diagnoses Not on filedocumented in this encounter Care Teams Retail Account Executive Relationship Specialty Start Date End Date Eliceo Gómez, DO [address] [place] [address] PCP - General Family Medicine 04/04/23 Eliceo Gómez, DO [address] [place] [address] PCP - [facility] 05/06/2310/05 Juan Damico, DO [address] [place] [address] Referring Physician Obstetrics and Gynecology 05/20/24 documented as of this encounter
--- OUTSIDE RECORDS SUMMARY | 2025-04-14 07:28 | XMS_ITS | Encounter Summary ---
Author Organization [facility] Address [address] [place] [address] Care Team Providers Care Embroidery Patternmaker Name Role Phone Eliceo Gómez DO Primary Care Provider [phone] Eliceo Gómez DO Unavailable [phone] Beata Hernandez Unavailable Juan Damico DO Unavailable [phone] Encounter Details Date Type Department Care Team (Late st Contact Info) Description 01/24/2024 Abstract [facility] [address] [facility] [address] [place] [address] Eliceo Gómez, DO [address] [facility] [address] [place] [address] Social History Tobacco Use Types Packs/Day Years [...] How often do you attend chur or latter day services? Never 04/14/2023 Do you belong to any clubs o r organizations such as holiness groups, unions, fraternal or athletic groups, or [...] Recorded Patient Health Questionnaire-2 Score 0 10/03/2023 [facility] Occupat ional Health - [...] DERM [address] [place] [address] Nelsy Harris, PLANNING COORDINATOR-DISTRIBUTION OPERATIONS SUPERVISOR [address] [place], [place] [address] documented as of this encounter Visit Diagnoses Not on filedocumented in this encounter Care Teams Embroidery Patternmaker Relationship Specialty Start Date End Date Eliceo Gómez DO [address] [place] [address] PCP - General Family Medicine 04/04/23 Eliceo Gómez DO [address] [place] [address] [facility] 05/06/2310/05 Beata Hernandez PA [address] [place] [address] Dietitian Nutrition 08/08/23 05/16/24 Juan Damico, [address] [place] [address] Referring Physician Obstetrics and Gynecology 05/20/24 documented as of this encounter
--- OUTSIDE RECORDS SUMMARY | 2025-04-14 07:28 | XMS_ITS | Encounter Summary ---
Author Organization [facility] Address [address] [facility] [place] [address] Care Team Providers Care Diffusion Furnace Operator Name Role Phone Eliceo Gómez DO Primary Care Provider [phone] Eliceo Gómez DO Unavailable [phone] Juan Damico DO Unavailable [phone] Encounter Details Date Type Department Care Team (Late st Contact Info) Description 07/10/2024 Abstract [facility] [address] [facility] 230 [place] [address] Eliceo Gómez DO [address] [facility] 230 [place] [address] Social History Tobacco Use Types Packs/Day Years [...] you attend chur or holiness services? Never 05/01/2024 Do you belong to [...] 0 07/11/2024 [facility] ionnm Health - Occupational Stress [...] any time in the past 12 m [facility], were you homeless or [...] 07/11/2024 9:44 AM EDT Janeth, Log an, CREDIT AND COLLECTIONS REPRESENTATIVE Feeling down, depressed, or hopeless Not at all 07/11/2024 9:44 AM EDT Mikala Fowler LPN Patient Health Questionnaire-2 Score 0 07/11/2024 9:44 AM EDT Nicole Fowler LPN documented as of this encounter Plan of Treatment Upcoming Encounters Date Type Department Care Team (Late st Contact Info) Description 11/20/2025 8:30 AM EST Office Visit [facility] [address] [place] [address] Nelsy Harris APRN-GENERAL FORECASTER [address] [place] [address] documented as of this encounter Visit Diagnoses Not on filedocumented in this encounter Care Teams Diffusion Furnace Operator Relationship Specialty Start Date End Date Eliceo Gómez DO [address] [place] [address] PCP - General Family Medicine 04/04/23 Eliceo Gómez DO [address] [place] [address] PCP - [facility] 05/06/2310/05 Juan Damico DO [address] [place] [address] Referring Physician Obstetrics and Gynecology 05/20/24 documented as of this encounter
--- OUTSIDE RECORDS SUMMARY | 2025-04-14 07:28 | XMS_ITS | Encounter Summary ---
Author Organization [facility] Address [address] [facility] [place] [address] Care Team Providers Care Dining Room Server Name Role Phone Eliceo Gómez DO Primary Care Provider [phone] Eliceo Gómez DO Unavailable [phone] Juan Damico DO Unavailable [phone] Encounter Details Date Type Department Care Team (Late st Contact Info) Description 07/10/2024 Abstract [facility] [address] [facility] 230 [place] [address] Eliceo Gómez DO [address] [facility] [address] [place] [address] Social History Tobacco Use Types Packs/Day Years [...] you attend chur or scientologist services? Never 05/01/2024 Do you belong to [...] Recorded Patient Health Questionnaire-2 Score 0 07/11/2024 [facility] Occup[facility] ionwv Health - Occupational Stress Questionnaire Answer Date [...] any time in the past 12 m [facility], were you homeless or living [...] 07/11/2024 9:44 AM EDT Janeth, Log an, MILITARY PAY TECHNICIAN Feeling down, depressed, or hopeless Not at all 07/11/2024 9:44 AM EDT Mikala Fowler LPN Patient Health Questionnaire-2 Score 0 07/11/2024 9:44 AM EDT Nicole Fowler LPN documented as of this encounter Plan of Treatment Upcoming Encounters Date Type Department Care Team (Late st Contact Info) Description 11/20/2025 8:30 AM EST Office Visit [facility] [address] [place] [phone] Nelsy Harris APRN-CATH LAB RADIOLOGICAL TECHNOLOGIST [address] [place] [address] documented as of this encounter Visit Diagnoses Not on filedocumented in this encounter Care Teams Dining Room Server Relationship Specialty Start Date End Date Eliceo Gómez DO [address] [place] [address] PCP - General Family Medicine 04/04/23 Eliceo Gómez DO [address] [place] [address] PCP - [facility] 05/06/2310/05 Juan Damico DO [address] [place] [address] Referring Physician Obstetrics and Gynecology 05/20/24 documented as of this encounter
--- OUTSIDE RECORDS SUMMARY | 2025-04-14 07:28 | XMS_ITS | Encounter Summary ---
Author Organization [facility] Address [address] [facility] [place] [address] Care Team Providers Care Osteopathic Neurologist Name Role Phone Eliceo Gómez DO Primary Care Provider Eliceo Gómez DO Unavailable [phone] Beata Hernandez Unavailable Juan Damico DO Unavailable [phone] Encounter Details Date Type Department Care Team (Late st Contact Info) Description 06/07/2023 Orders Only [facility] [address] [facility] [address] [place] [address] A, Unknown Practice [address] [place] [address] Social History Tobacco Use Types Packs/Day Years [...] you attend chur or protestant services? Never 04/14/2023 Do you belong to any clubs o r organizations such as latter day groups, unions, fraternal or athletic groups, or [...] Recorded Patient Health Questionnaire-2 Score 0 06/08/2023 [facility] - Occupational Stress Questionnaire Answer Date Recorded [...] [address] [place] [address] PradeepNelsy randall Thomas, TRANSFORMER ASSEMBLER-LABORER [address] [place] [address] documented as of this encounter Procedures Procedure [...] on filedocumented in this encounter Care Teams Osteopathic Neurologist Relationship Specialty Start Date End Date Eliceo Gómez DO [address] [place] [address] PCP - General Family Medicine 04/04/23 Eliceo Gómez DO [address] [place] [address] PCP - [facility] 05/06/2310/05 Beata Hernandez PA [address] [place] [address] Dietitian Nutrition 08/08/23 05/16/24 Juan Damico DO [address] [place] [address] Referring Physician Obstetrics and Gynecology 05/20/24 documented as of this encounter
--- OUTSIDE RECORDS SUMMARY | 2025-04-14 07:28 | XMS_ITS | Encounter Summary ---
Author Organization [facility] Address [address] [facility] [place] [address] Care Team Providers Care Foam Tank Laminator Name Role Phone Eliceo Gómez DO Primary Care Provider [phone] Eliceo Gómez DO Unavailable [phone] Beata Hernandez Unavailable Juan Damico DO Unavailable [phone] Encounter Details Date Type Department Care Team (Late st Contact Info) Description 06/12/2023 Orders Only [facility] [address] [facility] [address] [place] [address] A, Unknown Practice [address] [place] [address] Social History Tobacco Use Types Packs/Day Years [...] How often do you attend chur or hoahaoism services? Never 04/14/2023 Do you belong to [...] Recorded Patient Health Questionnaire-2 Score 0 06/08/2023 [facility] - Occupational Stress Questionnaire Answer Date [...] DERM [address] [place] [address] Nelsy Harris APRN-TRIMMER CLIMBER [address] [place] [address] documented as of this encounter [...] on filedocumented in this encounter Care Teams Foam Tank Laminator Relationship Specialty Start Date End Date Eliceo Gómez DO [address] [place] [address] PCP - General Family Medicine 04/04/23 Eliceo Gómez DO [address] [place] [address] PCP - [facility] 05/06/2310/05 Beata Hernandez PA [address] [place] [address] Dietitian Nutrition 08/08/23 05/16/24 Juan Damico, DO [address] [place] [address] Referring Physician Obstetrics and Gynecology 05/20/24 documented as of this encounter
--- OUTSIDE RECORDS SUMMARY | 2025-04-14 07:28 | XMS_ITS | Encounter Summary ---
Author Organization [facility] Address [address] [place] [address] Care Team Providers Care Melt Superintendant Name Role Phone Eliceo Gómez DO Primary Care Provider [phone] Eliceo Gómez DO Unavailable Juan Damico DO Unavailable [phone] Encounter Details Date Type Department Care Team [...] How often do you attend chur or amish services? Never 05/01/2024 Do you belong to [...] Recorded Patient Health Questionnaire-2 Score 0 06/12/2024 [facility] of Occupat ional Health - Occupational [...] in a care home (including now)? No 10/25/2023 Housing Stability [...] any time in the past 12 m [facility], were you homeless or living in a care home (including now)? No 05/01/2024 Comments No [...] DERM [address] [place] [address] Nelsy Harris APRN-MANAGER RN [address] [place] [address] documented as of this encounter Procedures Procedure Name Priority Date/Time Associated Diagnosis Comments XR FOOT RT MIN 3V 06/22/2024 12: 28 PM EDT documented in this encounter Results * XR FOOT RT MIN 3V (06/22/2024 12:28 PM EDT) Anatomical Region Laterality Modality Other 06/22/2024 12:2 8 PM EDT Narrative 06/22/2024 12:30 [place] [address] XRay Report Signed Patient: ELSIE FUENTES MR#: [id number] : 1970 Acct:[id number] Age/Sex: 54 / F ADM Date: 06/19/24 Loc: EC Attending Dr: Sade Felix D.P.M. Ordering Physician: Sade Felix D.P.M. Date of Service: 06/19/24 Procedure(s): XR foot RT min 3V Accession Number(s): [id number] cc: Sade Felix D.P.M.; Isatu GÓMEZ [place] [address] Patient Name: ELSIE FUETNES MRN: [id number] date: 1970 Sex: F Assigned Patient Location: Current Patient Location: [facility] Accession/Order Number: [id number] Exam Date: 06/19/2024 13:30 Report Date: 06/22/2024 [...] Dacosta M.D. Signed By: 06/22/24 1230 DD/ TD/TT: Care Taker: Procedure Note Radiology, Radiologist, - 06/22/2024 [place] [address] XRay Report Signed Patient: ELSIE FUENTES DMR#: [id number] : 1970Acct:[id number] Age/Sex: 54 / FADM Date: 06/19/24 Loc: EC Attending Dr: Sade Felix D.P.M. Ordering Physician: Sade Felix D.P.M. Date of Service: 06/19/24 Procedure(s): XR foot RT min 3V Accession Number(s): [id number] cc: Sade Felix D.P.M.; Isatu GÓMEZ [place] [address] Patient Name: ELSIE FUENTES MRN: [id number] date: 1970 Sex: F Assigned Patient Location: Current Patient Location: [facility] Accession/Order Number: [id number] Exam Date: 06/19/2024 13:30 Report Date: 06/22/2024 [...] Nicki Dacosta M.D. Signed By:06/22/24 1230 DD/ 27 TD/TT: Care Taker: Generic External Data Provider [facility] Final Result documented in this encounter Visit Diagnoses Not on filedocumented in this encounter Care Teams Melt Superintendant Relationship Specialty Start Date End Date Eliceo Gómez DO [address] [place] [address] PCP - General Family Medicine 04/04/23 Eilceo Gómez DO [address] [place] [address] PCP - [facility] 05/06/2310/05 Juan Damico DO [address] [place] [address] Referring Physician Obstetrics and Gynecology 05/20/24 documented as of this encounter
--- OUTSIDE RECORDS SUMMARY | 2025-04-14 07:28 | XMS_ITS | Encounter Summary ---
Author Organization [facility] Address [address] [place] [address] Care Team Providers Care Supervisor Winter Name Role Phone Eliceo Gómez DO Primary Care Provider [phone] Eliceo Gómez DO Unavailable [phone] Beata Hernandez Unavailable Juan Damico DO Unavailable [phone] Encounter Details Date Type Department Care Team (Late st Contact Info) Description 05/19/2023 Orders Only [facility] [address] [email or web address] [address] [place] [address] Provider, MD Pilo [address] [place] [address] Social History Tobacco Use Types Packs/Day [...] often do you attend chur ch or sabianist services? Never 04/14/2023 Do you belong to any clubs o r organizations such as anabaptist groups, unions, fraternal or athletic groups, or [...] Recorded Patient Health Questionnaire-2 Score 0 04/06/2023 [facility] of Occupat ional Health - Occupational Stress [...] DERM [address] [place] [address] Nelsy Harris, CEMETERY MANAGER-UNDERGROUND FOREMAN [address] [place] [address] documented as of this encounter [...] filedocumented in this encounter Care Teams Supervisor Winter Relationship Specialty Start Date End Date Eliceo Gómez, DO [address] [place] [address] PCP - [facility] Medicine 04/04/23 Eliceo Gómez DO [address] [place] [address] PCP - [facility] 05/06/2310/05 Beata Hernandez PA [address] [place] [address] Dietitian Nutrition 08/08/23 05/16/24 Juan Damico DO [address] [place] [address] Referring Physician Obstetrics and Gynecology 05/20/24 documented as of this encounter
--- OUTSIDE RECORDS SUMMARY | 2025-04-14 07:28 | XMS_ITS ---
Author Organization [facility] Address [address] [place] [address] Care Team Providers Care Public Health Clinical Nurse Specialist Name Role Phone HernandezEliceo randolph Asiya LOAIZA Primary Care Provider [phone] Eliceo Gómez DO Unavailable [phone] Juan Damico DO Unavailable [phone] Active Problems Problem Noted Date Diagnosed Date [...]
--- OUTSIDE RECORDS SUMMARY | 2025-04-14 07:28 | XMS_ITS | Encounter Summary ---
Author Organization [facility] Address [address] [place] [address] Care Team Providers Care Desk Clerk Name Role Phone HernandezEliceo randolph Asiya DO Primary Care Provider [phone] Eliceo Gómez DO Unavailable [phone] Beata Hernandez Unavailable Juan Damico DO Unavailable Encounter Details Date Type Department Care Team (Late st Contact Info) Description 04/13/2023 Orders Only [facility] [address] [facility] [address] [place] [address] Jacob Felix MD [address] [place] [address] [place] [address] Social History Tobacco Use Types Packs/Day Years [...] How often do you attend chur or voodoo services? Never 04/14/2023 Do you belong to [...] Recorded Patient Health Questionnaire-2 Score 0 04/06/2023 [facility] of Occupat ional Health - [...] in a group home (including now)? No 04/14/2023 Comments Unknown Sex [...] [address] [place] [address] Nelsy Harris, GEOSPATIAL PROGRAM MANAGEMENT OFFICER-TRAUMA PROGRAM MANAGER [address] [place] [address] documented as of this encounter Procedures Procedure [...] on filedocumented in this encounter Care Teams Desk Clerk Relationship Specialty Start Date End Date Eliceo Gómez DO [address] [place] [address] PCP - General Family Medicine 04/04/23 Eliceo Gómez DO [address] [place] [address] PCP - [facility] 05/06/2310/05 Beata Hernandez PA [address] [place] [address] Dietitian Nutrition 08/08/23 05/16/24 Juan Damico DO [address] [place] [address] Referring Physician Obstetrics and Gynecology 05/20/24 documented as of this encounter
--- OUTSIDE RECORDS SUMMARY | 2025-04-14 07:28 | XMS_ITS | Encounter Summary ---
Author Organization [employer] [facility] [employer] Address [id number] [address] [place] [address] Care Team Providers Care Guardian Family Member Name Role Phone Dalia Morales DO Eliceo Braden Primary Care Provider + Encounter Details Date Type Department Care Team (Late st Contact Info) Description 10/03/2023 Telephone [facility] Neurology [address] [place] [address] Kim Acharya RN Social History [...] to patient since he was contacted by [facility] stating patient was reaching out about eligibility. [...] Description 05/07/2025 7:30 AM EDT Office Visit [facility], A Department of [facility] [address] [facility] [address] [place] [address] Soraida Gama PA [address] [facility] 103 [place] [address] documented as of this encounter Visit Diagnoses Not on filedocumented in this encounter Additional Health Concerns Assessment Noted Time PHQ-9 Depression Total Score: 0 01/27/20 23 1:28 PM EDT documented as of this encounter Care Teams Guardian Family Member Relationship Specialty Start Date End Date Eliceo Gómez Jr., [address] [place] [address], [address], [place] [address] PCP - General Family Medicine 12/11/19 Jenna Butler [address] Consulting Physician Behavioral Health 12/20/23 documented as of this encounter
--- OUTSIDE RECORDS SUMMARY | 2025-04-14 07:28 | XMS_ITS | Encounter Summary ---
Author Organization [facility] Address [address] [facility] [place] [address] Care Team Providers Care Blow Mold Machine Operator Name Role Phone Eliceo Gómez DO Primary Care Provider [phone] Eliceo Gómez DO Unavailable [phone] Juan Damico DO Unavailable [phone] Encounter Details Date Type Department Care Team (Late st Contact Info) Description 06/20/2024 Abstract [facility] [address] [facility] 230 [place] [address] Eliceo Gómez DO [address] [facility] 230 [place] [address] Social History Tobacco Use Types Packs/Day Years [...] you attend chur or presybeterian services? Never 05/01/2024 Do you belong to any clubs o r organizations such as yarsanism groups, unions, fraternal or athletic groups, or [...] Recorded Patient Health Questionnaire-2 Score 0 06/12/2024 [facility] of Occupat ionwy Health - Occupational Stress Questionnaire Answer Date [...] in a chcf (including now)? No 10/25/2023 Housing Stability Vital [...] were you homeless or living in a chcf (including now)? No 05/01/2024 Comments No Sex [...] DERM [address] [place] [address] Nelsy Harris, EXTRACTOR AND WRINGER OPERATOR-SHRINKING MACHINE OPERATOR [address] [place] [address] documented as of this encounter Visit Diagnoses Not on filedocumented in this encounter Care Teams Blow Mold Machine Operator Relationship Specialty Start Date End Date Eliceo Gómez, DO [address] [place] [address] PCP - General Family Medicine 04/04/23 Eliceo Gómez, DO [address] [place] [address] PCP - [facility] 05/06/2310/05 Juan Damico, DO [address] [place] [address] Referring Physician Obstetrics and Gynecology 05/20/24 documented as of this encounter
--- OUTSIDE RECORDS SUMMARY | 2025-04-14 07:28 | XMS_ITS | Encounter Summary ---
Author Organization [facility] Address [facility] [place] [id number] [address] [place] [address] Care Team Providers Care Senior Examiner Name Role Phone Dalia Morales DO, George R Primary Care Provider + Reason for Visit * Reason Onset Date Comments Pt wants to schedule surgery 11/24/2023 Encounter Details Date Type Department Care Team ([facility] st Contact Info) Description 11/24/2023 Telephone [facility] - ENT [address] [place] [address], [address] [place] [address] Cullen Dawkins MD [address] [place] [address] [address] [place] [address] Pt wants to schedule surgery [...] 7:30 AM EDT Office Visit [facility], A Department of [facility] [address] [facility] [address] [place] [address] Soraida Gama PA [address] [facility] [address] [place] [address] documented as of this encounter Visit Diagnoses Not on filedocumented in this encounter Additional Health Concerns Assessment Noted Time PHQ-9 Depression Total Score: 0 10/23/20 23 1:26 PM EST documented as of this encounter Care Teams Senior Examiner Relationship Specialty Start Date End Date Eliceo Gómez Jr., [address] [place] [address], [address] [address] PCP - General Family Medicine 12/11/19 Jenna Butler [address] Consulting Physician Behavioral Health 12/20/23 documented as of this encounter
--- OUTSIDE RECORDS SUMMARY | 2025-04-14 07:28 | XMS_ITS | Encounter Summary ---
Author Organization [facility] Address [address] [facility] [place] [address] Care Team Providers Care Services Coordinator Name Role Phone Eliceo Gómez DO Primary Care Provider [phone] Eliceo Gómez DO Unavailable [phone] Beata Hernandez Unavailable Juan Damico DO Unavailable [phone] Encounter Details Date Type Department Care Team (Late st Contact Info) Description 05/18/2023 Orders Only [facility] [address] [facility] [address] [place] [address] Provider, MD Pilo [address] [place] [address] Social History Tobacco Use Types Packs/Day [...] often do you attend chur ch or spiritism services? Never 04/14/2023 Do you [...] Recorded Patient Health Questionnaire-2 Score 0 04/06/2023 [facility] of Occupat ional Health - [...] DERM [address] [place] [address] Nelsy Harris, SUPERVISOR DRILLING AND SHOOTING-PHLEBOTOMIST [address] [place] [address] documented as of this encounter Procedures Procedure Name Priority Date/Time Associated Diagnosis Comments XR CHEST 1 VIEW Routine 05/18/2023 9:[address] FOOT RIGHT W CONTRAST [id number] Routine 05/18/2023 9:07 AM EDT XR FOOT 3+ VIEWS RIGHT Routine 05/18/2023 8:25 AM EDT documented in this encounter Results * XR chest 1 view (05/18/2023 9:19 AM EDT) Anatomical Region Laterality Modality Chest Radiographic Ira ging Historical Provider IMG XR PROCEDURES Final R esult * CT FOOT RIGHT W CONTRAST [id number] (05/18/2023 9:07 AM EDT) Anatomical Region Laterality Modality Radiographic Ira ging Historical Provider IMG XR PROCEDURES Final R esult * XR foot 3+ views right (05/18/2023 8:25 AM EDT) Anatomical Region Laterality Modality Lower Extremities, Foot Right Radiogra phic Imaging Historical Provider IMG XR PROCEDURES Final R esult documented in this encounter Visit Diagnoses Not on filedocumented in this encounter Care Teams Services Coordinator Relationship Specialty Start Date End Date Eliceo Gómez DO [address] [place] [address] PCP - General Family Medicine 04/04/23 Eliceo Gómez DO [address] [place] [address] PCP - [facility] 05/06/2310/05 Beata Hernandez PA [address] [place] [address] Dietitian Nutrition 08/08/23 05/16/24 Juan Damico DO [address] [place] [address] Referring Physician Obstetrics and Gynecology 05/20/24 documented as of this encounter
--- OUTSIDE RECORDS SUMMARY | 2025-04-14 07:28 | XMS_ITS | Encounter Summary ---
Author Organization [facility] Address [address] [place] [address] Care Team Providers Care Economic Development Director Name Role Phone HernandezEliceo randolph Asiya DO Primary Care Provider [phone] Eliceo Gómez DO Unavailable [phone] Beata Hernandez Unavailable Juan Damico DO Unavailable [phone] Encounter Details Date Type Department Care Team (Late st Contact Info) Description 04/14/2023 Orders Only [facility] [address] [facility] [address] [place] [address] Jacob Felix MD [address] [place] [address] [place] [address] Social History Tobacco Use Types Packs/Day Years [...] How often do you attend chur or rastafarian services? Never 04/14/2023 Do you belong to [...] Recorded Patient Health Questionnaire-2 Score 0 04/06/2023 [facility] of Occupat ional Health [...] [address] [place] [address] Nelsy Harris, PLAY READER-DECKHAND CLAM DREDGE [address] [place] [address] documented as of this encounter Procedures Procedure [...] on filedocumented in this encounter Care Teams Economic Development Director Relationship Specialty Start Date End Date Eliceo Gómez DO [address] [place] [address] PCP - General Family Medicine 04/04/23 Eliceo Gómez DO [address] [place] [address] PCP - [facility] 05/06/2310/05 Beata Hernandez PA [address] [place] [address] Dietitian Nutrition 08/08/23 05/16/24 Juan Damico DO [address] [place] [address] Referring Physician Obstetrics and Gynecology 05/20/24 documented as of this encounter
--- OUTSIDE RECORDS SUMMARY | 2025-04-14 07:28 | XMS_ITS | Encounter Summary ---
Author Organization [employer] Address [id number] [address] [place] [address] Care Team Providers Care Dietary Aide Teacher Name Role Phone Dalia Morales DO, George R Primary Care Provider + Encounter Details Date Type Department Care Team (Late st Contact Info) Description 07/11/2023 Telephone [facility] [address] [address] Cullen Dawkins MD [address] [place] [address] [address] [place] [address] Social History Tobacco Use Types [...] MAC Surgery Time: 30 minutes Facility Preference: [facility] Post Op Destination: Outpatient When should patient follow up after surgery? 1-2 weeks Additional Comments: Yosef Horowitz documented in this encounter Plan of Treatment Upcoming Encounters Date Type Department Care Team (Late st Contact Info) Description 05/07/2025 7:30 AM EDT Office Visit [facility], A Department of [address] [address] [place] [address] [place] [address] documented as of this encounter Visit Diagnoses Not on filedocumented in this encounter Additional Health Concerns Assessment Noted Time PHQ-9 Depression Total Score: 0 01/27/20 23 1:28 PM EDT documented as of this encounter Care Teams Dietary Aide Teacher Relationship Specialty Start Date End Date Eliceo Gómez Jr., DO [address] [place] [address], [address], [place] [address] PCP - General Family Medicine 12/11/19 Jenna Butler [address] Consulting Physician Behavioral Health 12/20/23 documented as of this encounter
--- OUTSIDE RECORDS SUMMARY | 2025-04-14 07:28 | XMS_ITS | Encounter Summary ---
Author Organization [facility] Address [address] [place] [address] Care Team Providers Care Scientific Technical Writer Name Role Phone Eliceo Gómez DO Primary Care Provider [phone] Eliceo Gómez DO Unavailable [phone] Bea[place] Hernandez Unavailable Juan Damico DO Unavailable [phone] Encounter Details Date Type Department Care Team [...] often do you attend chur ch or zoroastrian services? Never 04/14/2023 Do you belong to [...] Recorded Patient Health Questionnaire-2 Score 0 10/03/2023 [facility] - Occupational Stress Questionnaire Answer Date [...] DERM [address] [place] [address] Nelsy Harris APRN-CRYPTOLOGIC TECHNICIAN [address] [place] [address] documented as of this encounter Procedures Procedure Name Priority Date/Time Associated Diagnosis Comments XR FOOT RT MIN 3V 02/29/2024 6:3 7 AM EDT documented in this encounter Results * XR FOOT RT MIN 3V (02/29/2024 6:37 AM EDT) Anatomical Region Laterality Modality Other 02/29/2024 6:37 AM EDT Narrative 02/29/2024 6:40 AM EDT The [address] [address] XRay Report Signed Patient: MARY FUENTES MR#: [id number] : 1970 Acct:[id number] Age/Sex: 53 / F ADM Date: 02/28/24 Loc: EC Attending Dr: Sade Felix D.P.M. Ordering Physician: Sade Felix D.P.M. Date of Service: 02/28/24 Procedure(s): XR foot RT min 3V Accession Number(s): [id number] cc: Sade Felix D.P.M.; Isatu GÓMEZ The [place] [id number] Patient Name: MARY FUENTES MRN: [id number] date: 1970 Sex: F Assigned Patient Location: Current Patient Location: Accession/Order Number: [id number] Exam Date: 02/28/2024 09:13 Report Date: 02/29/2024 [...] Dictated By: Adam Oliveros M.D. Signed By: 02/29/2440 DD/ TD/TT: Bacteriology Research Assistant: Procedure Note Radiology, Radiologist, MD - 02/29/2024 [place] [address] XRay Report Signed Patient: MARY FUENTES DMR#: [id number] : 1970Acct:[id number] Age/Sex: 53 / FADM Date: 02/28/24 Loc: EC Attending Dr: Sade Felix D.P.M. Ordering Physician: Sade Felix D.P.M. Date of Service: 02/28/24 Procedure(s): XR foot RT min 3V Accession Number(s): [id number] cc: Sade Felxi D.P.M.; Isatu GMÓEZ [place] [address] Patient Name: MARY FUENTES MRN: [id number] date: 1970 Sex: F Assigned Patient Location: EC Current Patient Location: Accession/Order Number: [id number] Exam Date: 02/28/2024 09:13 Report Date: 02/29/2024 [...] 06:37 Dictated By: Adam Oliveros M.D. Signed By:02/29/2440 DD/ TD/TT: Bacteriology Research Assistant: us Generic External Data Provider [facility] Final Result documented in this encounter Visit Diagnoses Not on filedocumented in this encounter Care Teams Scientific Technical Writer Relationship Specialty Start Date End Date Eliceo Gómez DO [address] [place] [address] PCP - General Family Medicine 04/04/23 Eliceo Gómez DO [address] [place] [address] PCP - [facility] 05/06/2310/05 Beata Hernandez PA [address] [place] [address] Dietitian Nutrition 08/08/23 05/16/24 Juan Damico, DO [address] [place] [address] Referring Physician Obstetrics and Gynecology 05/20/24 documented as of this encounter
--- OUTSIDE RECORDS SUMMARY | 2025-04-14 07:28 | XMS_ITS | Encounter Summary ---
Author Organization [employer] Address [facility] [id number] [address] [place] [address] Care Team Providers Care Shift Engineer Name Role Phone Stephonmame Morales Eliceo Braden Primary Care Provider + Reason for Visit * Reason Onset Date Comments Bonita BROOKS 01/30/2023 Encounter Details Date Type Department Care Team (Late st Contact Info) Description 01/30/2023 Telephone [facility] Physicians Neurology [address] [place] [address] Kim cAharya RN The [facility] CECIL[place] Social History Tobacco Use Types Packs/Day [...] - 01/30/2023 8:18 AM EDT PA for Laviniatec started on CMM Art: [email or web address] faxed to plan , waiting a response documented in this encounter Plan of Treatment Upcoming Encounters Date Type Department Care Team (Late st Contact Info) Description 05/07/2025 7:30 AM EDT Office Visit [facility], A Department of [address] [place] [address] Soraida Gama PA 5700 [facility] [address] [place] [address] documented as of this encounter Visit Diagnoses Not on filedocumented in this encounter Additional Health Concerns Assessment Noted Time PHQ-9 Depression Total Score: 0 01/27/20 23 1:28 PM EDT documented as of this encounter Care Teams Shift Engineer Relationship Specialty Start Date End Date Eliceo Gómez Jr., DO [address] [place] [address], [address] [address] PCP - General Family Medicine 12/11/19 Jenna Butler [address] Consulting Physician Behavioral Health 12/20/23 documented as of this encounter
--- OUTSIDE RECORDS SUMMARY | 2025-04-14 07:28 | XMS_ITS | Encounter Summary ---
Author Organization [employer] Address [id number] [address] [place] [address] Care Team Providers Care Saw Superintendent Name Role Phone Dalia Morales DO Eliceo Braden Primary Care Provider + Encounter Details Date Type Department Care Team (Late st Contact Info) Description 10/18/2023 [facility] [address] [place] [address] Kim Acharya RN Social History [...] I got a message from Yosef from [employer] about a denial for Inspire from [facility]. It was apparently denied because the med notes don't clarify why she stopped using the CPAP and they needed further clarification. We can do [id number] once we have the information. There is a string of telephone encounters in [facility] from 03/02/23, where we had recommended [...] documentation after call was ended. Will send [employer] message with additional information needed. * Telephone Encounter - Kim Acharya RN - 10/18/2023 11:34 AM EST Patient responded to [employer] message stating that Dr. Todd Noe had [...] will draft appeal letter and fax to [employer] once completed. * Telephone Encounter - Kim Acharya RN - 10/18/2023 11:34 AM EST Appeal letter written and faxed to [employer] and appeals. Will wait response [...] Apnea Device. She can be reached at [phone] * Telephone Encounter - Kim Acharya RN - 10/18/2023 11:34 AM EST Called to check status of appeal but had to leave VM with department asking for call back regarding appeal. * Telephone Encounter - Kim Acharya RN - 10/18/2023 11:34 AM EST Received transferred call from Tracie at [employer]. She stated she does not see RN's appeal that was sent for Inspire on 10/19. RN verified fax # that was on letter that RN sent letter to. She stated she has a fax # to be sent that is [phone]. RN stated will try to refax letter to new fax #. She also provided secondary fax # of [phone]. RN faxed appeal to both #s listed above. Sent patient message via [employer] with update. Received fax confirmation on both #s * Telephone Encounter - Kim Acharya RN - 10/18/2023 11:34 AM EST RN received fax from [employer] stating that they received appeal for Inspire but it needs to be sent via mail. RN sent all appeal information to [employer] as listed on the fax and placed in outgoing mail. * Telephone Encounter - Kim Acharya RN - 10/18/2023 11:34 AM EST Received letter in mail from [employer] stating that it appears this is a post appeal dispute and needs to be sent to correct address . RN marked on letter that service has not been completed until approved so this is a pre service appeal and that was the address that appeal was sent to. Also marked that this needs to marked as urgent since [employer] has provided misinformation to our office on many occasions and we need to not delay patient care any further. * Telephone Encounter - Kim Acharya RN - 10/18/2023 11:34 AM EST RN had email from [employer] stating approval came through for device after faxing to # provided by rep for appeals. Letter scanned in under media. RN informed patient via [employer]. documented in this encounter Plan of Treatment Upcoming Encounters Date Type Department Care Team (Late st Contact Info) Description 05/07/2025 7:30 AM EDT Office Visit [facility] of [facility] [address] [facility] [address] [place] [address] Soraida Gama PA [address] [facility] [address] [place] [address] documented as of this encounter Visit Diagnoses Not on filedocumented in this encounter Additional Health Concerns Assessment Noted Time PHQ-9 Depression Total Score: 0 01/27/20 23 1:28 PM EDT documented as of this encounter Care Teams Saw Superintendent Relationship Specialty Start Date End Date Eliceo Gómez Jr., [address] [place] [address], [address], [place] [address] PCP - General Family Medicine 12/11/[address] Consulting Physician Behavioral Health 12/20/23 documented as of this encounter
--- OUTSIDE RECORDS SUMMARY | 2025-04-14 07:28 | XMS_ITS | Encounter Summary ---
Author Organization [facility] Answer.To Sys tem Address [id number] [address] [place] [address] Care Team Providers Care Home Care Music Therapist Name Role Phone Dalia Morales DO, George R Primary Care Provider + Encounter Details Date Type Department Care Team ([facility] st Contact Info) Description 09/19/2023 Telephone [facility] - ENT [address] [place] [address], [address] [place] [address] [place] [address] [place] [address] [address] [place] [address] Social History Tobacco Use Types [...] [facility] Department of [facility] [address] [place] [address] Soraida Gama PA [address] [facility] [address] [place] [address] documented as of this encounter Visit Diagnoses Not on filedocumented in this encounter Additional Health Concerns Assessment Noted Time PHQ-9 Depression Total Score: 0 01/27/20 23 1:28 PM EDT documented as of this encounter Care Teams Home Care Music Therapist Relationship Specialty Start Date End Date Eliceo Gómez Jr., [address] [place] [address], [address] [address] PCP - General Family Medicine 12/11/19 Jenna Butler [address] Consulting Physician Behavioral Health 12/20/23 documented as of this encounter
--- OUTSIDE RECORDS SUMMARY | 2025-04-14 07:28 | XMS_ITS | Encounter Summary ---
Author Organization [facility] Address [address] [place] [address] Care Team Providers Care Second Grade Teacher Name Role Phone Eliceo Gómez DO Primary Care Provider Eliceo Gómez DO Unavailable [phone] Juan Damico DO Unavailable [phone] Encounter Details Date Type Department Care Team [...] you attend chur or tenriism services? Never 05/01/2024 Do you belong to [...] Recorded Patient Health Questionnaire-2 Score 0 07/11/2024 [facility] Occupat ional Health - [...] DERM [address] [place] [address] Nelsy Harris, DIRECTOR INTELLIGENCE ANALYSIS PROGRAMS-LASTING ROOM SUPERVISOR [address] [place] [address] documented as of this encounter Procedures Procedure Name Priority Date/Time Associated Diagnosis Comments XR FOOT RT MIN 3V 07/10/2024 6:5 9 AM EDT documented in this encounter Results * XR FOOT RT MIN 3V (07/10/2024 6:59 AM EDT) Anatomical Region Laterality Modality Other 07/10/2024 6:59 AM EDT Narrative 07/10/2024 7:02 AM EDT [address] [address] XRay Report Signed Patient: MARY FUENTES MR#: [id number] : 1970 Acct:[id number] Age/Sex: 54 / F ADM Date: 07/09/24 Loc: EC Attending Dr: Sade Felix D.P.M. Ordering Physician: Sade Felix D.P.M. Date of Service: 07/09/24 Procedure(s): XR foot RT min 3V Accession Number(s): [id number] cc: Sade Felix D.P.M.; Isatu GÓMEZ [address] [id number] Patient Name: MARY FUENTES MRN: [id number] date: 1970 Sex: F Assigned Patient Location: Current Patient Location: Accession/Order Number: [id number] Exam Date: 07/09/2024 10:00 Report Date: 07/10/2024 [...] Adam Oliveros M.D. Signed By: 07/10/2402 DD/ TD/TT: Financial Cost Analyst: Procedure Note Radiology, Radiologist, MD - 07/10/2024 [place] [address] XRay Report Signed Patient: MARY FUENTES DMR#: [id number] : 1970Acct:[id number] Age/Sex: 54 / FADM Date: 07/09/24 Loc: Attending Dr: Sade Felix D.P.M. Ordering Physician: Sade Felix D.P.M. Date of Service: 07/09/24 Procedure(s): XR foot RT min 3V Accession Number(s): [id number] cc: Sade Felix D.P.M.; Isatu GÓMEZ [place] [address] Patient Name: MARY FUENTES MRN: [id number] date: 1970 Sex: F Assigned Patient Location: Current Patient Location: Accession/Order Number: [id number] Exam Date: 07/09/2024 10:00 Report Date: 07/10/2024 [...] Adam Oliveros M.D. Signed By:07/10/24 0702 DD/ TD/TT: Financial Cost Analyst: Generic External Data Provider [facility] Final Result documented in this encounter Visit Diagnoses Not on filedocumented in this encounter Care Teams Second Grade Teacher Relationship Specialty Start Date End Date Eliceo Gómez DO [address] [place] [address] PCP - General Family Medicine 04/04/23 Eliceo Gómez DO [address] [place] [address] PCP - [facility] 05/06/2310/05 Juan Damico DO [address] [place] [address] Referring Physician Obstetrics and Gynecology 05/20/24 documented as of this encounter
--- OUTSIDE RECORDS SUMMARY | 2025-04-14 07:29 | XMS_ITS | Encounter Summary ---
Author Organization [facility] Address [address] [place] [address] Care Team Providers Care Credentialing Assistant Name Role Phone Eliceo Gómez DO Primary Care Provider [phone] Eliceo Gómez DO Unavailable [phone] Beata Hernandez Unavailable Juan Damico DO Unavailable [phone] Encounter Details Date Type Department Care Team (Late st Contact Info) Description 04/18/2024 Abstract [facility] [address] [facility] [address] [place] [address] Eliceo Gómez, DO [address] [facility] [address] [place] [address] Social History Tobacco Use Types Packs/Day Years [...] Patient Health Questionnaire-2 Score 0 03/14/2024 [facility] of Occupat ional Health - Occupational Stress [...] DERM [address] [place] [address] Nelsy Harris, SHOE SALESPERSON-BRUSH HAND [address] [place], [place] [address] documented as of this encounter Visit Diagnoses Not on filedocumented in this encounter Care Teams Credentialing Assistant Relationship Specialty Start Date End Date Eliceo Gómez DO [address] [place] [address] PCP - General Family Medicine 04/04/23 Eliceo Gómez DO [address] [place] [address] [facility] 05/06/2310/05 Beata Hernandez PA [address] [place] [address] Dietitian Nutrition 08/08/23 05/16/24 Juan Damcio, [address] [place] [address] Referring Physician Obstetrics and Gynecology 05/20/24 documented as of this encounter
--- OUTSIDE RECORDS SUMMARY | 2025-04-14 07:29 | XMS_ITS | Encounter Summary ---
Author Organization [facility] Address [address] [place] [address] Care Team Providers Care Certified Ophthalmic Technician Name Role Phone Eliceo Gómez DO Primary Care Provider [phone] Eliceo Gómez DO Unavailable [phone] Beata Hernandez Unavailable Juan Damico DO Unavailable [phone] Encounter Details Date Type Department Care Team (Late st Contact Info) Description 03/07/2024 Abstract [facility] [address] [facility] [address] [place] [address] Eliceo Gómez, DO [address] [facility] [address] [place] [address] Social History Tobacco Use Types Packs/Day Years [...] How often do you attend chur or oriental orthodox services? Never 04/14/2023 Do [...] Recorded Patient Health Questionnaire-2 Score 0 10/03/2023 [facility] of Occupat ional Health - Occupational Stress [...] DERM [address] [place] [address] Nelsy Harris, TEST LEAD APPLICATION TESTING-PSYCHIATRIC SOCIAL WORKER SUPERVISOR [address] [place], [place] [id number] documented as of this encounter Visit Diagnoses Not on filedocumented in this encounter Care Teams Certified Ophthalmic Technician Relationship Specialty Start Date End Date Eliceo Gómez DO [address] [place] [address] PCP - General Family Medicine 04/04/23 Eliceo Gómez DO [address] [place] [address] [facility] 05/06/2310/05 Beata Hernandez PA [address] [place] [address] Dietitian Nutrition 08/08/23 05/16/24 Juan Damico, [address] [place] [address] Referring Physician Obstetrics and Gynecology 05/20/24 documented as of this encounter
--- OUTSIDE RECORDS SUMMARY | 2025-04-14 07:29 | XMS_ITS | Patient Health Record ---
Author Organization [facility] in [place] Address [address] [place] [address] Care Team Providers Care Practice Management Consultant Name Role Phone Rigo Grant DO Primary Care Provider Sade Ahuja Unavailable [phone] Falguni Duron Unavailable [phone] Allergies No Known Allergies Results Component Value Reference Range Notes XR Foot RT (3 views) * Reviewed date:11/04/2024 02:42:58 PM Interpretation: Performing Lab: Notes/Report: XR foot RT min 3V (Not yet r eviewed by provider) Interpretation: Performing Lab: Notes/Report: Source Facility: [place] [address] XRay Report Signed Patient: MARY FUENTES MR#: [id number] : 1970 Acct:[id number] Age/Sex: 54 / F ADM Date: 10/01/24 Loc: RAD Attending Dr: Sade Felix D.P.M. Ordering Physician: Sade Felix D.P.M. Date of Service: 10/01/24 Procedure(s): XR foot RT min 3V Accession Number(s): [id number] cc: Sade Felix D.P.M.; Isatu CASTRO [place] [address] Patient Name: MARY FUENTES MRN: [id number] date: 1970 Sex: F Assigned Patient Location: RAD Current Patient Location: RAD Accession/Order Number: [id number] Exam Date: 10/01/2024 07:45 Report Date: 10/03/2024 [...] M.D. Signed By: 10/03/24927 DD/ 4 TD/TT: Manager Of Compensation: [place] [address] XRay Report Signed Patient: CRISTY FUENTES MR#: [id number] : 1970 Acct:[id number] Age/Sex: 54 / F ADM Date: 10/01/24 Loc: RAD Attending Dr: Sade Felix D.P.M. Ordering Physician: Sade Felix D.P.M. Date of Service: 10/01/24 Procedure(s): XR ryan t RT min 3V Accession Number(s): [id number] cc: Sade Felix D.P.M.; Isatu CASTRO [address] [address] Patient Name: MARY FUENTES MRN: [id number] date: 1970 Sex: F Assigned Patient Location: RAD Current Patient Loca tion: RAD Accession/Order Numb er: [id number] Exam Date: 07:45 Report Date: 10/03/2024 09:25 [...] M.D. Signed By: 10/03/24927 DD/ 4 TD/TT: Manager Of Compensation: XR foot RT min 3V (Not yet r eviewed by provider) Interpretation: Performing Lab: Notes/Report: Source Facility: [place] [address] XRay Report Signed Patient: MARY FUENTES MR#: [id number] : 1970 Acct:[id number] Age/Sex: 54 / F ADM Date: 01/03/25 Loc: EC Attending Dr: Sade Felix D.P.M. Ordering Physician: Sade Felix D.P.M. Date of Service: 01/03/25 Procedure(s): XR foot RT min 3V Accession Number(s): [id number] cc: Sade Felix D.P.M.; Isatu CASTRO [place] [address] Patient Name: MARY FUENTES MRN: [id number] date: 1970 Sex: F Assigned Patient Location: Current Patient Location: Accession/Order Number: [id number] Exam Date: 01/03/2025 12:17 Report Date: 01/03/2025 [...] Makenna Pathak M.D.01/03/2025 12:21 PM Dictation Location: [place] [address] Electronically authenticated by: [id number] Y Date: 01/03/2025 12:21 Dictated By: Makenna Pathak M.D. Signed By: 01/03/25 1223 DD/ 1221 TD/TT: Manager Of Compensation: [place] [address] XRay Report Signed Patient: CRISTY FUENTES MR#: [id number] : 1970 Acct:[id number] Age/Sex: 54 / F ADM Date: 01/03/25 Loc: EC Attending Dr: Sade Felix D.P.M. Ordering Physician: Sade Felix D.P.M. Date of Service: 01/03/25 Procedure(s): XR ryan t RT min 3V Accession Number(s): [id number] cc: Sade Felix D.P.M.; Isatu CASTRO [place] [address] Patient Name: MARY FUENTES MRN: [id number] date: 1970 Sex: F Assigned Patient Location: Current Patient Loca tion: EC Accession/Order Numb er: [id number] Exam Date: 01/03/2025 12:17 Report Date: 01/03/2025 [...] Makenna Pathak M.D.01/03/2025 12:21 PM Dictation Location: [place] [address] Electronically authenticated by: [id number] Y Date: 01/03/2025 12:21 Dictated By: Makenna Pathak M.D. Signed By: 01/03/25 1223 DD/ 1221 TD/TT: Manager Of Compensation: FL fluoroscopy <1hr NON-READ (Not yet reviewed by provider) Interpretation: Performing Lab: Notes/Report: Source Facility: [place] [address] Fluoroscopy Report Signed Patient: MARY FUENTES MR#: [id number] : 1970 Acct:[id number] Age/Sex: 54 / F ADM Date: 05/27/24 Loc: MS 221-[address]: Sade Felix D.P.M. Ordering Physician: Sade Felix D.P.M. Date of Service: 05/27/24 Procedure(s): FL fluoroscopy <1hr NON-READ Accession Number(s): [id number] cc: Sade Felix D.P.M.; Isatu CASTRO [place] [address] Patient Name: MARY FUENTES MRN: [facility]:[id number] date: 1970 Sex: F Assigned Patient Location: [facility] Current Patient Location: MS Accession/Order Number: [id number] Exam Date: 05/27/2024 11:35 Report Date: 05/29/2024 08:32 At the request of: SADE FELIX Procedure: FL fluoroscopy <1hr NON-READ EXAM: FL fluoroscopy <1hr NON-READ HISTORY: TECHNIQUE: FINDINGS: Please see Operative Report. Electronically authenticated by: RADIOLOGIST NO Date: 05/29/2024 08:32 Dictated By: Lana,Radiologist Signed By: 05/29/24833 DD/ 1 TD/TT: Manager Of Compensation: [place] [address] Fluoroscopy Report Signed Patient: CRISTY FUENTES MR#: [id number] : 1970 Acct:[id number] Age/Sex: 54 / F ADM Date: 05/27/24 Loc: [place] 221-[address]: Sade Felix D.P.M. Ordering Physician: Sade Felix D.P.M. Date of Service: 05/27/24 Procedure(s): FL fluoroscopy <1hr NON-READ Accession Number(s): [id number] cc: Sade Felix D.P.M.; Isatu CASTRO [place] [id number] Patient Name: MARY FUENTES MRN: [id number] date: 1970 Sex: F Assigned Patient Location: [facility] Current Patient Loca tion: MS Accession/Order Numb er: [id number] Exam Date: 05/27/2024 11:35 Report Date: 05/29/2024 08:32 At the request of: SADE FELIX Procedure: FL fluoro scopy <1hr NON-READ EXAM: FL fluoroscopy <1hr NON-READ HISTORY: TECHNIQUE: FINDINGS: Please see Operative Report. Electronically authenticated by: RADIOLOGIST NO Date: 05/29/2024 08:32 Dictated By: Lana,Radiologist Signed By: 05/29/24833 DD/ 1 TD/TT: Manager Of Compensation: CBC AUTO DIFF (Not yet revie wed by provider) Interpretation: Performing Lab: Notes/Report: [facility] , White Blood Count 6.5 4.0-11.0 10 [...] 3/uL Performing Lab: see note ML - [facility] LB MRI Ankle RT w/o contrast (H ind Foot) Reviewed date:06/04/2024 09:28:56 AM Interpretation: Performing Lab: Notes/Report: XR Foot RT (3 views) * Reviewed date:04/18/2024 11:43:58 AM Interpretation: Performing Lab: Notes/Report: XR Foot RT (3 views) * Reviewed date:11/04/2024 01:26:00 PM Interpretation: Performing Lab: Notes/Report: Reason For Referral Reason Compression stocking s Diagnosis 1 Right foot pain (M79 .671) Referral Organization [facility] ([facility]) Referring Provider First Name Sade Referring [...] Problem Status W/U Status Risk Notes Problem 45973006 Essential (primary) hypertension (I10) Active confirmed Problem 524243549 Gastro-esophagea l reflux disease without esophagitis (K21.9) Active confirmed Problem 5659191325867157 Primary osteoarthritis, right ankle and foot (M19.071) Active confirmed Problem 409815109139831 Peroneal tendinitis, right leg (M76.71) Active confirmed Problem 5030055829339446 Posterior tibia l tendinitis, left leg (M76.822) Active confirmed Problem 761951936 Unspecified subluxation of right foot, sequela (S93.301S) Active confirmed Problem Presence of righ t artificial ankle joint (Z96.661) Active confirmed Problem 259108232 Presence of functional implant, unspecified (Z96.9) Active confirmed Problem Gastroesophageal reflux disease (610316823) GERD (gastroesophageal reflux disease) (K21.9) Active confirmed Problem Sleep apnea (11582660) Sleep apnea (G47.30) Active confirmed Problem Bipolar disorder (00645418) Bipolar disorder (F31.9) Active confirmed Problem Generalized anxiety disorder (10946012) JOLEEN (generalized anxiety disorder) (F41.1) Active confirmed Problem Panic disorder (213641412) Panic attacks (F41.0) Active confirmed Problem Iron deficiency anemia (78824339) Anemia, iron deficiency (D50.9) Active confirmed Problem Osteoarthritis of right foot (2170255906257444) Osteoarthritis of right foot (M19.071) Active confirmed Problem Primary osteoarthritis (249571930) Primary osteoarthritis (M19.91) Active confirmed Problem Localized, primary osteoarthritis of the ankle and/or foot (030582639) Osteoarthritis of ankle, right (M19.071) Active confirmed Problem Essential hypertension (60656164) BP (high blood pressure) (I10) Active confirmed Problem 2044124851951830 Arthritis of le ft foot (M19.072) Active confirmed Problem 4691816645215429 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 [address] 05/30/2024 [facility] [address] [address] 06/05/2024 [facility] [address] [address] 06/18/2024 Falguni Duron [facility] ([facility]) [address] [place] [address] [place] [address] 01/03/2025 Sade Felix [facility] ([facility] [address] [place] [address] [place] [address] 04/29/2024 Sade Felix [facility]) [address] [place] [address] [place] [address] 05/08/2024 Sade Felix [facility]) [address] [place] [address] [place] [address] 05/16/2024 Falguni Duron [facility] ([facility]) [address] [place] [address] [place] [address] 12/10/2024 Sade Felix Pain due to bone fixation device, initial encounter T84.84XA ; Posterior tibial tendon dysfunction (PTTD) of right lower extremity M76.821 and Right foot pain M79.671 [facility]) [address] [place] [address] [place] [address] 01/03/2025 Sade Felix Posterior tibial tendon dysfunction (PTTD) of right lower extremity M76.821 ; Primary osteoarthritis, right ankle and foot M19.071 and Right foot pain M79.671 [facility] [address] [place] [address] [place] [address] 04/17/2024 Sade Felix Osteoarthritis of right foot M19.071 ; Peroneal tendinitis, right leg M76.71 and Other instability, right ankle M25.371 [facility] [address] [place] [address] [place] [address] 05/07/2024 Sade Felix Peroneal tendinitis, right leg M76.71 ; Pain due to internal orthopedic prosthetic devices, implants and grafts, initial encounter T84.84XA ; Primary osteoarthritis, right ankle and foot M19.071 ; Pain in right ankle and joints of right foot M25.571 and Strain of muscle(s) and tendon(s) of peroneal muscle group at lower leg level, right leg, initial encounter S86.311A [facility]) [address] [place] [address] [place] [address] 07/09/2024 Sade Felix Osteoarthritis of right foot M19.071 and Unspecified subluxation of right foot, sequela S93.301S [facility] ([facility]) [address] [place] [address] [place] [address] 07/30/2024 Sade Felix Right foot pain M79.671 and Pain due to bone fixation device, initial encounter T84.84XA [facility]) [address] [place] [address] [place] [address] 10/01/2024 Sade Felix Pain due to bone fixation device, initial encounter T84.84XA ; Posterior tibial tendon dysfunction (PTTD) of right lower extremity M76.821 ; Osteoarthritis of right foot M19.071 and Right foot pain M79.671 [facility] ([facility]) [address] [place] [address] [place] [address] 06/05/2024 Sade Felix Pain due to bone fixation device, initial encounter T84.84XA and Posterior tibial tendon dysfunction (PTTD) of right lower extremity M76.821 [facility] ([facility]) [address] [place] [address] [place] [address] 06/19/2024 Sade Felix Osteoarthritis of right foot M19.071 and Pain due to bone fixation device, initial encounter T84.84XA [facility] [address] [place] [address] 05/27/2024 Sade Felix Assessments Encounter Date Diagnosis (ICD Code) Assessment [...] of infection today. She is taking 2-3 Randolph per day and is requesting refill which [...] well as stretching exercises. Finally I prescribed Randolph 5/325 1 by mouth every 6 hours [...] Insured Coverage Start Date Coverage End Date [facility] [employer] PRIMARY MEDICARE [address] [place] [address] [id number] [facility] [id number] D Mary Fuentes Self - patient is the insured [place]ICAID [place] 2ND INS [address] [facility] [address] [place], [place] [id number] Mary Fuentes Self - patient is the insured 4 [place] [address] [place] [address] [id number] Mary Fuentes Self - patient is the [...]
--- OUTSIDE RECORDS SUMMARY | 2025-04-14 07:29 | XMS_ITS | Encounter Summary ---
Author Organization [facility] Address [address] [facility] [place] [address] Care Team Providers Care Brasswind Instrument Repairer Name Role Phone Eliceo Gómez DO Primary Care Provider [phone] Eliceo Gómez DO Unavailable [phone] Juan Damico DO Unavailable [phone] Encounter Details Date Type Department Care Team (Late st Contact Info) Description 05/29/2024 Abstract [facility] [address] [facility] [address] [place] [address] Eliceo Gómez DO [address] [facility] 230 [place] [address] Social History Tobacco Use Types Packs/Day Years [...] you attend chur or hoahaoism services? Never 05/01/2024 Do you belong to [...] Recorded Patient Health Questionnaire-2 Score 0 05/14/2024 [facility] [place] of Occupat ionga Health - Occupational Stress Questionnaire Answer Date [...] time in the past 12 m [facility], were you homeless or living [...] DERM [address] [place] [address] Nelsy Harris, COMPENSATION PROGRAMS MANAGER-ASBESTOS HANDLER [address] [place] [address] documented as of this encounter Visit Diagnoses Not on filedocumented in this encounter Care Teams Brasswind Instrument Repairer Relationship Specialty Start Date End Date Eliceo Gómez, DO [address] [place] [address] PCP - General Family Medicine 04/04/23 Eliceo Gómez, DO [address] [place] [address] PCP - [facility] 05/06/2310/05 Juan Damico, DO [address] [place] [address] Referring Physician Obstetrics and Gynecology 05/20/24 documented as of this encounter
--- OUTSIDE RECORDS SUMMARY | 2025-04-14 07:29 | XMS_ITS | Encounter Summary ---
Author Organization [facility] Address [address] [facility] [place] [address] Care Team Providers Care Rectifying Attendant Name Role Phone Eliceo Gómez DO Primary Care Provider [phone] Eliceo Gómez DO Unavailable [phone] Juan Damico DO Unavailable [phone] Encounter Details Date Type Department Care Team (Late st Contact Info) Description 05/27/2024 Abstract [facility] [address] [facility] 230 [place] [address] Eliceo Gómez DO [address] [facility] [address] [place] [address] Social History Tobacco Use Types Packs/Day Years [...] Recorded Patient Health Questionnaire-2 Score 0 05/14/2024 [facility] [place] of Occupat ionla Health - Occupational Stress [...] in a penitentiary (including now)? No 10/25/2023 Housing Stability Vital Sign Answer Melecio e Recorded In the last 12 months, was t here a time when you were not able to pay the mortgage or rent on time? No 05/01/2024 In the past 12 months, how m any times have you moved where you were living? 1 05/01/2024 At any time in the past 12 m [facility], were you homeless or living in a penitentiary (including now)? No 05/01/2024 Comments No Sex [...] [address] [place] [address] Nelsy Harris, COATING AND EMBOSSING UNIT OPERATOR-BACK PAD INSPECTOR [address] [place] [address] documented as of this encounter Visit Diagnoses Not on filedocumented in this encounter Care Teams Rectifying Attendant Relationship Specialty Start Date End Date Eliceo Gómez, DO [address] [place] [address] PCP - General Family Medicine 04/04/23 Eliceo Gómez, DO [address] [place] [address] PCP - [facility] 05/06/2310/05 Juan Damico, DO [address] [place] [address] Referring Physician Obstetrics and Gynecology 05/20/24 documented as of this encounter
--- OUTSIDE RECORDS SUMMARY | 2025-04-14 07:29 | XMS_ITS | Encounter Summary ---
Author Organization [facility] Address [address] [facility] [place] [address] Care Team Providers Care Mobile Paramedical Examiner Name Role Phone Eliceo Gómez DO Primary Care Provider [phone] Eliceo Gómez DO Unavailable [phone] Juan Damico DO Unavailable [phone] Encounter Details Date Type Department Care Team (Late st Contact Info) Description 05/27/2024 Abstract [facility] [address] [facility] 230 [place] [address] Eliceo Gómez DO [address] [facility] [address] [place] [address] Social History Tobacco Use Types Packs/Day Years [...] Recorded Patient Health Questionnaire-2 Score 0 05/14/2024 [facility] [place] of Occupat ionky Health - Occupational Stress [...] any time in the past 12 m [facility], were you homeless or living [...] [address] [place] [address] Nelsy Harris, PACKAGE DELIVERY DRIVER-SIZE TESTER [address] [place] [address] documented as of this encounter Visit Diagnoses Not on filedocumented in this encounter Care Teams Mobile Paramedical Examiner Relationship Specialty Start Date End Date Eliceo Gómez, DO [address] [place] [address] PCP - General Family Medicine 04/04/23 Eliceo Gómez, DO [address] [place] [address] PCP - [facility] 05/06/2310/05 Juan Damico, DO [address] [place] [address] Referring Physician Obstetrics and Gynecology 05/20/24 documented as of this encounter
--- OUTSIDE RECORDS SUMMARY | 2025-04-14 07:29 | XMS_ITS | Encounter Summary ---
Author Organization [facility] Address [address] [place] [address] Care Team Providers Care Deep Sea Diver Name Role Phone Eliceo Gómez DO Primary Care Provider [phone] Eliceo Gómez DO Unavailable [phone] Beata Hernandez Unavailable Juan Damico DO Unavailable [phone] Encounter Details Date Type Department Care Team [...] Patient Health Questionnaire-2 Score 0 03/14/2024 [facility] - Occupational Stress Questionnaire Answer Date [...] DERM [address] [place] [address] Nelsy Harris APRN-TICKET BROKER [address] [place] [address] documented as of this encounter Procedures Procedure Name Priority Date/Time Associated Diagnosis Comments XR FOOT RT MIN 3V 03/20/2024 10: 17 AM EDT documented in this encounter Results * XR FOOT RT MIN 3V (03/20/2024 10:17 AM EDT) Anatomical Region Laterality Modality Other 03/20/2024 10:1 7 AM EDT Narrative 03/20/2024 10:19 AM EDT The [address] [address] XRay Report Signed Patient: MARY FUENTES MR#: [id number] : 1970 Acct:[id number] Age/Sex: 53 / F ADM Date: 03/20/24 Loc: EC Attending Dr: Sade Felix D.P.M. Ordering Physician: Sade Felix D.P.M. Date of Service: 03/20/24 Procedure(s): XR foot RT min 3V Accession Number(s): [id number] cc: Sade Felix D.P.M.; Isatu GÓMEZ [place] [address] Patient Name: MARY FUENTES MRN: [id number] date: 1970 Sex: F Assigned Patient Location: Current Patient Location: Accession/Order Number: [id number] Exam Date: 03/20/2024 09:50 Report Date: 03/20/2024 [...] Signed By: 03/20/24 1019 DD/ 1017 TD/TT: Clerk Manager: Procedure Note Radiology, Radiologist, MD - 03/20/2024 [place] [address] XRay Report Signed Patient: MARY FUENTES DMR#: [id number] : 1970Acct:[id number] Age/Sex: 53 / FADM Date: 03/20/24 Loc: EC Attending Dr: Sade Felix D.P.M. Ordering Physician: Sade Felix D.P.M. Date of Service: 03/20/24 Procedure(s): XR foot RT min 3V Accession Number(s): [id number] cc: Sade Felix D.P.M.; Isatu GÓMEZ [place] [address] Patient Name: MARY FUENTES MRN: [id number] date: 1970 Sex: F Assigned Patient Location: Current Patient Location: EC Accession/Order Number: [id number] Exam Date: 03/20/2024 09:50 Report Date: 03/20/2024 [...] M.D. Signed By:03/20/24 1019 DD/ 1017 TD/TT: Clerk Manager: us Generic External Data Provider [facility] Final Result documented in this encounter Visit Diagnoses Not on filedocumented in this encounter Care Teams Deep Sea Diver Relationship Specialty Start Date End Date Eliceo Gómez DO [address] [facility] [address] [place] [address] PCP - General Family Medicine 04/04/23 Eliceo Gómez DO [address] [place] [address] [facility] 05/06/2310/05 Beata Hernandez PA [address] [place] [address] Dietitian Nutrition 08/08/23 05/16/24 Juan Damico DO [address] [place] [address] Referring Physician Obstetrics and Gynecology 05/20/24 documented as of this encounter
--- OUTSIDE RECORDS SUMMARY | 2025-04-14 07:29 | XMS_ITS | Encounter Summary ---
Author Organization [facility] Address [address] [facility] [place] [address] Care Team Providers Care Tanner Rotary Drum Continuous Process Name Role Phone Eliceo Gómez DO Primary Care Provider [phone] Eliceo Gómez DO Unavailable [phone] Juan Damico DO Unavailable [phone] Encounter Details Date Type Department Care Team (Late st Contact Info) Description 05/17/2024 Abstract [facility] [address] [facility] 230 [place] [address] Eliceo Gómez DO [address] [facility] [address] [place] [address] Social History Tobacco Use Types Packs/Day Years [...] you attend chur or caodaism services? Never 05/01/2024 Do you belong to [...] Recorded Patient Health Questionnaire-2 Score 0 05/14/2024 [facility] [place] of Occupat ionca Health - Occupational Stress [...] any time in the past 12 m [facility], were you homeless or living [...] DERM [address] [place] [address] Nelsy Harris, LICENSED MARINE ENGINEER-PLUNGER SCOOP OPERATOR [address] [place] [address] documented as of this encounter Visit Diagnoses Not on filedocumented in this encounter Care Teams Tanner Rotary Drum Continuous Process Relationship Specialty Start Date End Date Eliceo Gómez, DO [address] [place] [address] PCP - General Family Medicine 04/04/23 Eilceo Gómez, DO [address] [place] [address] PCP - [facility] 05/06/2310/05 Juan Damico, DO [address] [place] [address] Referring Physician Obstetrics and Gynecology 05/20/24 documented as of this encounter
--- OUTSIDE RECORDS SUMMARY | 2025-04-14 07:29 | XMS_ITS | Encounter Summary ---
Author Organization [facility] Address [address] [place] [address] Care Team Providers Care Peoplesoft Consultant Name Role Phone Eliceo Gómez DO Primary Care Provider [phone] Eliceo Gómez DO Unavailable [phone] Beata Hernandez Unavailable Juan Damico DO Unavailable [phone] Encounter Details Date Type Department Care Team (Late st Contact Info) Description 04/12/2024 Abstract [facility] [address] [facility] [address] [place] [phone] Eliceo Gómez, DO [address] [facility] 230 [place] [address] Social History Tobacco Use Types Packs/Day Years [...] any clubs o r organizations such as cheondoism groups, unions, fraternal or athletic groups, or [...] Recorded Patient Health Questionnaire-2 Score 0 03/14/2024 [facility]at ional [facility] - [...] DERM [address] [place] [address] Nelsy Harris, BIOMETRIC TECHNICIAN-BUSINESS SERVICES DIRECTOR [address] [place], [place] [id number] documented as of this encounter Visit Diagnoses Not on filedocumented in this encounter Care Teams Peoplesoft Consultant Relationship Specialty Start Date End Date Eliceo Gómez DO [address] [place] [address] PCP - General Family Medicine 04/04/23 Eliceo Gómez DO [address] [place] [address] [facility] 05/06/2310/05 Beata Hernandez PA [address] [place] [address] Dietitian Nutrition 08/08/23 05/16/24 Juan Damico, [address] [place] [address] Referring Physician Obstetrics and Gynecology 05/20/24 documented as of this encounter
--- OUTSIDE RECORDS SUMMARY | 2025-04-14 07:29 | XMS_ITS | Encounter Summary ---
Author Organization [facility] Address [address] [place] [address] Care Team Providers Care Cost Reduction Engineer Name Role Phone Eliceo Gómez DO Primary Care Provider [phone] Eliceo Gómez DO Unavailable [phone] Beata Hernandez Unavailable Juan Damico DO Unavailable [phone] Encounter Details Date Type Department Care Team (Late st Contact Info) Description 04/15/2024 Abstract [facility] [address] [facility] [address] [place] [address] Eliceo Gómez, DO [address] [facility] [address] [place] [address] Social History Tobacco Use Types Packs/Day Years [...] you attend chur or methodist services? Never 04/14/2023 Do you belong to [...] Recorded Patient Health Questionnaire-2 Score 0 03/14/2024 [facility] Occupat ional Health [...] DERM [address] [place] [address] Nelsy Harris, COMMUNITY MUSIC THERAPIST-SUPERVISING FILM OR VIDEOTAPE EDITOR [address] [place], [place] [id number] documented as of this encounter Visit Diagnoses Not on filedocumented in this encounter Care Teams Cost Reduction Engineer Relationship Specialty Start Date End Date Eliceo Gómez DO [address] [place] [address] PCP - General Family Medicine 04/04/23 Eliceo Gómez DO [address] [place] [address] [facility] 05/06/2310/05 Beata Hernandez PA [address] [place] [address] Dietitian Nutrition 08/08/23 05/16/24 Juan Damico, [address] [place] [address] Referring Physician Obstetrics and Gynecology 05/20/24 documented as of this encounter
--- OUTSIDE RECORDS SUMMARY | 2025-04-14 07:29 | XMS_ITS | Encounter Summary ---
Author Organization [facility] Address [address] [place] [address] Care Team Providers Care Retail Marketing Manager Name Role Phone Eliceo Gómez DO Primary Care Provider Eliceo Gómez DO Unavailable [phone] Beata Hernandez Unavailable Juan Damico DO Unavailable [phone] Encounter Details Date Type Department Care Team [...] often do you attend chur ch or restorationism services? Never 04/14/2023 Do you belong to any clubs o r organizations such as presybeterian groups, unions, fraternal or athletic groups, or [...] Recorded Patient Health Questionnaire-2 Score 0 03/14/2024 [facility] - Occupational Stress Questionnaire Answer Date [...] DERM [address] [place] [phone] Nelsy Harris APRN-SCAGLIOLA MECHANIC [address] [place] [address] documented as of this encounter Procedures Procedure Name Priority Date/Time Associated Diagnosis Comments XR FOOT RT MIN 3V 04/17/2024 1:1 7 PM EDT documented in this encounter Results * XR FOOT RT MIN 3V (04/17/2024 1:17 PM EDT) Anatomical Region Laterality Modality Other 04/17/2024 1:17 PM EDT Narrative 04/17/2024 1:20 PM EDT The [address] [address] XRay Report Signed Patient: ELSIE FUENTES MR#: [id number] : 1970 Acct:[id number] Age/Sex: 53 / F ADM Date: 04/17/24 Loc: EC Attending Dr: Sade Felix D.P.M. Ordering Physician: Sade Felix D.P.M. Date of Service: 04/17/24 Procedure(s): XR foot RT min 3V Accession Number(s): [id number] cc: Sade Felix D.P.M.; Isatu GÓMEZ The [place] [address] Patient Name: ELSIE FUENTES MRN: [id number] date: 1970 Sex: F Assigned Patient Location: Current Patient Location: Accession/Order Number: [id number] Exam Date: 04/17/2024 11:50 Report Date: 04/17/2024 [...] By: Nicki Dacosta M.D. Signed By: 04/17/24 1320 DD/ 1317 TD/TT: Gunner'S Mate M: Procedure Note Radiology, Radiologist, MD - 04/17/2024 [place] [address] XRay Report Signed Patient: ELSIE FUENTES DMR#: [id number] : 1970Acct:[id number] Age/Sex: 53 / FADM Date: 04/17/24 Loc: EC Attending Dr: Sade Felix D.P.M. Ordering Physician: Sade Felix D.P.M. Date of Service: 04/17/24 Procedure(s): XR foot RT min 3V Accession Number(s): [id number] cc: Sade Felix D.P.M.; Isatu GÓMEZ [place] [address] Patient Name: ELSIE FUENTES MRN: [id number] date: 1970 Sex: F Assigned Patient Location: Current Patient Location: Accession/Order Number: [id number] Exam Date: 04/17/2024 11:50 Report Date: 04/17/2024 [...] Dictated By: Nicki Dacosta M.D. Signed By:04/17/24 1320 DD/ 1317 TD/TT: Gunner'S Mate M: us Generic External Data Provider [facility] Final Result documented in this encounter Visit Diagnoses Not on filedocumented in this encounter Care Teams Retail Marketing Manager Relationship Specialty Start Date End Date Eliceo Gómez DO [address] [place] [address] PCP - General Family Medicine 04/04/23 Eliceo Gómez DO [address] [place] [address] [facility] 05/06/2310/05 Beata Hernandez PA [address] [facility] [address] [place] [address] Dietitian Nutrition 08/08/23 05/16/24 Juan Damico DO [address] [facility] [address] [place] [address] Referring Physician Obstetrics and Gynecology 05/20/24 documented as of this encounter
--- OUTSIDE RECORDS SUMMARY | 2025-04-14 07:29 | XMS_ITS | Encounter Summary ---
Author Organization [facility] Address [address] [facility] [place] [address] Care Team Providers Care Perfume Compounder Name Role Phone Eliceo Gómez DO Primary Care Provider [phone] Eliceo Gómez DO Unavailable [phone] Juan Damico DO Unavailable [phone] Encounter Details Date Type Department Care Team (Late st Contact Info) Description 05/29/2024 Abstract [facility] [address] [facility] 230 [place] [address] Eliceo Gómez DO [address] [facility] 230 [place] [address] Social History Tobacco Use Types Packs/Day Years [...] any clubs o r organizations such as caodaism groups, unions, fraternal or athletic groups, or [...] Health Questionnaire-2 Score 0 05/14/2024 [facility] Occupat ionar Health - Occupational Stress Questionnaire Answer Date [...] DERM [address] [place] [address] Nelsy Harris, ROOF TRUSS DETAILER-ELECTRONIC FUNDS TRANSFER COORDINATOR [address] [place] [address] documented as of this encounter Visit Diagnoses Not on filedocumented in this encounter Care Teams Perfume Compounder Relationship Specialty Start Date End Date Eliceo Gómez, DO [address] [place] [address] PCP - General Family Medicine 04/04/23 Eliceo Gómez, DO [address] [place] [address] PCP - [facility] 05/06/2310/05 Juan Damico, DO [address] [place] [address] Referring Physician Obstetrics and Gynecology 05/20/24 documented as of this encounter
--- OUTSIDE RECORDS SUMMARY | 2025-04-14 07:29 | XMS_ITS | Encounter Summary ---
Author Organization [facility] tem Address [id number] [address] [place] [address] Care Team Providers Care Practice Manager Name Role Phone Dalia Morales DO Eliceo Braden Primary Care Provider + Encounter Details Date Type Department Care Team (Late Contact Info) Description 12/23/2019 Telephone [facility] [address] [facility] [address] [place] [address] Jenifer Helm, MAKI Social History Tobacco Use [...] Description 05/07/2025 7:30 AM EDT Office Visit [facility], A Department of [facility] [address] [facility] [address] [place] [address] Soraida Gama PA [address] [facility] [address] [place] [address] documented as of this encounter Visit Diagnoses Not on filedocumented in this encounter Additional Health Concerns Infection Onset Date Last Indicated Resolved Time COVID-19 Rule-Out 09/22/2020 09/22/2020 09/22/2020 3:17 PM EST documented as of this encounter Care Teams Practice Manager Relationship Specialty Start Date End Date Eliceo Gómez Jr., [address] [place] [address], [address], [place] [address] PCP - General Family Medicine 12/11/19 Jenna Butler [address] Consulting Physician Behavioral Health 12/20/23 documented as of this encounter
--- OUTSIDE RECORDS SUMMARY | 2025-04-14 07:30 | XMS_ITS | CCD ---
Author Organization [facility] Inform ion Partnership [facility] Care Team Providers Care Life Enrichment Specialist Name Role Phone PARISH GÓMEZ Primary Care Unavailable Eliceo Gómez Jr. Primary Care Provider Gwendolyn Stroud Unavailable Maximus OROSCO, Gwendolyn Unavailable [phone] Beto Snyder Unavailable Tita Daugherty Unavailable Erica Kingston Unavailable Eliceo Gómez Unavailable Unavailable Unavailable Allison Arita Unavailable Eliceo Gómez Jr. Primary Care Provider Maximus OROSCO Gwendolyn Unavailable Eliceo Gómez Unavailable DO Shannon Gómez Primary Care Provider MD Beto Snyder Attending Provider [phone] Eliceo Gómez Jr. Primary Care Provider Maximus OROSCO Gwendolyn Unavailable Beto Cartagena Unavailable MD Beto Cartagena Attending Provider WINSTON HANNAH Attending Unavailable WINSTON HANNAH Referring Unavailable ELICEO GÓMEZ JR Primary Care Unavail able ISRA MASTERS Attending Unavailable ISRA MASTERS Referring Unavailable ELICEO GÓMEZ JR Primary Care Unavail able DO Shannon Gómez Primary Care Provider [phone] LORRAINE Duron Attending Provider DR FELISHA SKELTON [...] Consulting Unavailable TANI ., CHASITY Consulting Unavailable MAKENNA TRIPLETT Consulting Unavailable DALIA, DR Isatu LUGO Primary Care Unavailable ELIAS ., DR ELDER Rios Admitting Unavailable ELIAS ., DR ELDER Rios Attending Unavailable ELIAS ., DR ELDER Rios Consulting Unavailable HARRISON, DR NICKI Gale Consulting Unavailable SADE FELIX Consulting Unavailable EDUARDO ., NANCY LAMA Consulting Unavailable GEMBUSDAWNA Consulting Unavailable HIGHLSADE GRANADOS Consulting Unavailable CHANI, SADE Keys Attending Unavailable SADE FELIX Admitting Unavailable KALEIGHA, DR Isatu LUGO Primary Care Unavailable KAFTTOMASA, DR Isatu LUGO Primary Care Unavailable PAY ., DR MCDONALD Attending Unavailable PAY ., DR MCDONALD Admitting Unavailable PAY ., DR MCDONALD Consulting Unavailable NIECY DURON Attending Unavailable NIECY DURON Admitting Unavailable DALIA, DR Isatu LUGO Primary Care Unavailable ZIEBER, DR ZAIDA Ellis Consulting Unavailable NIECY DURON Consulting Unavailable DO Anibal Valle Emergency Provider [phone] Unavailable Unavailable Unavailable Primary Care Provider UnavailLEV [...] ilaraceli Gómez Jr., Eliceo LOAIZA [facility] eduardo PAULINE CHRISTENSEN Attending Unavailable ELICEO GÓMEZ JR Referring Unavailable ELICEO GÓMEZ JR Primary Care Unavailable DO Shannon Gómez Primary Care Provider DO Tez Vazquez Attending Provider RAJIV WILKINSON Attending Unavailable ELICEO GÓMEZ JR Primary Care Unavailable CULLEN DAWKINS Referring Unavailable ELICEO GÓMEZ JR Primary Care Unavailable CULLEN DAWKINS Attending Unavailable CULLEN DAWKINS Referring Unavailable ELICEO GÓMEZ JR Primary Care Unavailable CULLEN DAWKINS Attending Unavailable ELICEO GÓMEZ JR Asiya Referring Unavailable KAJEROMEAN , ELICEO Ellis Primary Care Unavailable CULLEN DAWKINS Admitting Unavailable EVERETTE, CULLEN Zhou Attending Unavailable CULLEN DAWKINS Referring Unavailable KAJEROMEAN , ELICEO Ellis Primary Care Unavailable WANG, PAM Referring Unavailable KALEIGHA JENKINS, ELICEO PARISH Primary Care Unavail able Dalia Morales, Eliceo LOAIZA Primary Care Provi jose eduardo DALIA JENKINS, ELICEO LUGO Primary Care Unavail able WANG, PAM Admitting Unavailable WANG, PAM Attending Unavailable WANG, PAM Referring Unavailable KAFTAN JR, ELICEO LUGO Primary Care Unavail able JAIORN LAI Attending Unavailable WANG, PAM Attending Unavailable KAFTAN JR, ELICEO LUGO Primary Care Unavail able KAJEROMEAN JR, ELICEO LUGO Primary Care Unavail able NELSY CHÁVEZ Attending Unavailable FLOWER LOPEZ Attending Unavailable DALIA JENKINS, ELICEO LUGO Primary Care Unavail able KAJEROMEAN JR, ELICEO LUGO Primary Care Unavail able KAJEROMEAN JR, ELICEO LUGO Primary Care Unavail able HERNANDEZAN , ELICEO LUGO Primary Care Unavail able WANG, PAM Attending Unavailable KAFTAN JR, ELICEO LUGO Primary Care Unavail able WANG, PAM Attending Unavailable WANG, PAM Referring Unavailable KAJEROMEAN JR, ELICEO LUGO Primary Care Unavail able DORIS ARIAS Attending Unavailable Shannon Gómez DO Primary Care Provider DO Shannon Gómez Primary Care Provider FADUMO Felix Attending Provider [phone] [phone] Primary Care Provider Unavailjan e Eliceo Gómez DO Primary Care Provider Eliceo Gómez DO Unavailable [phone] Dipti Acevedo DO Unavailable Monica Linares Attending Provider [phone] Shannon Gómez DO Primary Care Provider [phone] Anibal Medrano DO Attending Provider [phone] Dipti Acevedo DO Attending Provider Farhad BENSON, Na Attending Provider Dalia Morales DO, George R Primary Care Provider HEALTH, 360 Referring Unavailable ELICEO GÓMEZ JR Primary Care Unavailable Everett Valdez MD Attending Provider [phone] Shannon GÓMEZ Primary Care Unavailable MERISSA DELAROSA Referring Unavailable SELF, SELF Referring Unavailable KAFTAN, G. PARISH Primary Care Unavailable KALEIGHA, GReno LUGO Primary Care Unavailable RADHA CARDENAS Attending Unavailable DALIA, GReno LUGO Referring Unavailable KAFTAN, GReno LUGO Primary Care Unavailable MERISSA DELAROSA Attending Unavailable HERNANDEZAN, GReno LUGO Referring Unavailable KAFTAN, G. PARISH Primary Care Unavailable KAFTAN, GReno LUGO Referring Unavailable LI, NA Referring Unavailable DALIA, GReno LUGO Primary Care Unavailable MERISSA DELAROSA Attending Unavailable LI, NA Referring Unavailable KAJEROMEAN, GReno LUGO Primary Care Unavailable RADHA CARDENAS Attending Unavailable RADHA CARDENAS Attending Unavailable DALIA, Shannon LUGO Primary Care Unavailable DALIA, GReno LUGO Referring Unavailable HERNANDEZAN, GReno LUGO Referring Unavailable RADHA CARDENAS Attending Unavailable DALIA, GReno LUGO Primary Care Unavailable LI, NA Referring Unavailable DALIA, GReno LUGO Primary Care Unavailable MILAGROS FRANCO Attending Unavailab le Dalia LOAIZA, Eliceo R Unavailable ELICEO GÓMEZ Attending Unavailable NANCY SWENSON Attending Unavailable KAFTAN, ELICEO R Attending Unavailable KAFTANELICEO Referring Unavailable RON KING Attending Unavailable JES MARTINEZ Attending Unavailable SIDNEY AMEZQUITA Attending Unavailable KALEIGHA, ELICEO R Referring Unavailable KAFTAN, ELICEO R Attending Unavailable KAFTAN, ELICEO R Referring Unavailable NELSY SNYDER Attending Unavailable KAFTANELICEO Attending Unavailable DIPTI ACEVEDO Attending Unavailable CARMEN CRUZ Attending Unavailable RON KING Attending Unavailable DIPTI ACEVEDO Attending Unavailable CARMEN CRUZ Attending Unavailable SIDNEY AMEZQUITA Attending Unavailable ELICEO GÓMEZ Attending Unavailable KAFTELICEO RANDOLPH R Referring Unavailable KAFTANELICEO R Attending Unavailable DALIA, ELICEO R Referring Unavailable KAJEROMEAN, ELICEO R Referring Unavailable RON KING Attending Unavailable ELICEO GÓMEZ Referring Unavailable DIPTI ACEVEDO Attending Unavailable DIPTI ACEVEDO Attending Unavailable RON KING Attending Unavailable DIPTI ACEVEDO Attending Unavailable DIPTI AECVEDO Attending Unavailable KRISTINADIPTI SAMAYOA Attending Unavailable DIPTI ACEVEDO Attending Unavailable NELSY SNYDER Attending Unavailable CHRISTENSEN, AJAZ Referring Unavailable CHRISTENSEN, AJAZ Referring Unavailable CHRISTENSEN, AJAZ Attending Unavailable CHRISTENSEN, AJAZ Attending Unavailable CHRISTENSEN, AJAZ Attending Unavailable Kaftan Shannon LOAIZA Primary Care Provider [place] , Anibal Brewer Attending Provider [phone] Everett Valdez MD Attending Provider Shannon Gómez DO Primary Care Provider [phone] [facility], Monica Rios Attending Provider Everett Valdez Admitting Unavailable Everett Valdez Attending Unavailable Shannon Gómez Primary Care Unavailable Grant, Monica E Admitting Unavailable Monica Burns E Attending Unavailable Shannon Gómez Primary Care Unavailable Shannon Gómez Primary Care Unavailable Dipti Acevedo Admitting Unavailable Dipti Acevedo Attending Unavailable HighlSade granados Attending Unavailable Highlander, Sade D Admitting Unavailable Li, Na Attending Unavailable KaShannon vilchis Primary Care Unavailable Li, Na Admitting Unavailable KaShannon vilchis Primary Care Unavailable [place], Anibal N Admitting Unavailable [place], Anibal N Attending Unavailable Grant Monica E Admitting Unavailable Grant, Monica E Attending Unavailable Shannon Gómez Primary Care Unavailable KaShannon vilchis Primary Care Unavailable [place], Anibal N Admitting Unavailable [place], Anibal N Attending Unavailable Highlander, Peter D Attending Unavailable KaftShannon randolph Primary Care Unavailable Highlander, Peter D Admitting Unavailable KaShannon vilchis Primary Care Unavailable [place], Anibal N Admitting Unavailable [place], Anibal N Attending Unavailable Everett Valdez Admitting Unavailable Everett Valdez Attending Unavailable Shannon Gómez Primary Care Unavailable Brandyn BENSON, Ace Art Attending Unavailable Brandyn BENSON, Andrius Art Attending Unavailable Brandyn BENSON, Andrius Art Attending Unavailable Giedraitis , Andjaylan Art Attending Unavailable Giedraitis , Andrius Art Attending Unavailable Giedraitis , Andrius Art Attending Unavailable Giedraitis , Andrius Art Attending Unavailable Giedraitis , Andrius Art Attending Unavailable Giedraitis , Andjaylan Art Attending Unavailable Allergies Allergy Classification Reported Allergen(s) Allergy Type Date of Onset Reaction(s) Facility risperiDONE (1 source) risperiDONE Drug Allergy 9 [facility] (20 sources) risperiDONE; Translations: [RisperDAL TABS] Drug Allergy 0 Intolerance, Other (See Comments) [facility] (1 source) oxyCODONE Drug Allergy [facility] (1 source) risperiDONE Drug Allergy [facility] Repository (20 sources) POISON BRENDA EXTRACT; Translations: [POISON BRENDA EXTRACT] Drug Allergy 3 Rash [facility] (20 sources) risperiDONE Drug Allergy 9 [facility] (1 source) risperiDONE Drug Allergy [facility] Repository (1 source) POISON BRENDA; Translations: [POISON BRENDA] Propensity to adverse reactions to drug (disorder) 2 [facility] Repository (1 source) risperiDONE Drug Allergy 5 [facility] Repository Medications Current Medications Medication Drug Class(es) [...] oral tablet (8 sources) Opioid Agonist Start: take 1 tablet by mouth three times [...] Start: 09-06-2021 take 1 tablet by yancy twice daily as needed oxyCODONE-Acetaminophen 5-325 MG 1 table t as needed Orally up to twice daily as needed for 30 days Sep, Active Start: 09-20-2017 End: 10-01-2018 take 1 tablet by mouth every six hours as needed for pain Oxycodone-Acetaminophen 5-325 mg Tablet Discontinued 1 TAB PO Q6H as needed for Pain Scale 1 - 5 September 20, 2017 1:00am October 01, 2018 10:41am acyclovir 400 mg oral tablet (13 sources) Herpesvirus Nucleoside Analog DNA Polymerase Inhibitor, Herpes Simplex Virus Nucleoside Analog DNA Polymerase Inhibitor, Herpes Zoster Virus Nucleoside Analog DNA Polymerase Inhibitor Start: 11-29-2020 take 1 tablet by mouth every twelve hours [id number] 200 actuat albuterol 0.09 mg/actuat metered dose inhaler (20 sources) beta2-Adrenergic Agonist Start: 11-13-2024 End: 02-21-2025 take 2 puff(s) by inhalation every four hours for wheezing albuterol HFA 90 mcg/act inhaler Indications: Mild intermittent asthma, unspecified whether complicated (CMS/HCC) Inhale 2 puffs every 4 (four) hours if needed for wheezing 18 g 11/13/2024 Active Start: 05-14-2024 End: 10-19-2024 take 2 puff(s) by inhalation every four hours for wheezing albuterol HFA 90 mcg/act inhaler Indications: Mild intermittent asthma, unspecified whether complicated ([facility]/HCC) Inhale 2 puffs every 4 (four) hours if needed for wheezing 07/11/2024 Active Start: 06-05-2023 End: 09-16-2024 take 1 puff(s) by inhalation every four to six hours as needed for wheezing Albuterol Sulfate 90 mcg/actuation HFA aerosol inhaler Discontinued 2 PUFF INHALATION EVERY 4-6 HOURS as needed for Wheezing June 05, 2023 12:00am September 16, 2024 4:04pm Start: 08-26-2022 albuterol (PRO VENTIL,VENTOLIN) nebulizer solution [...] 300 MG IM Q28D September 16, 2024 1:00am Start: 02-26-2024 Abilify Mainte na 300 MG [...] 2017 1:00am October 01, 2018 10:40am ARIPiprazole ER (Abilify) 400 MG injection Inject 400 mg into the shoulder, thigh, or buttocks 1 (one) time Active ARIPiprazole (AB ILIFY MAINTENA) 300 mg suspension,extended rel recon Inject 1.5 mL (300 mg total) into the appropriate muscle every 28 days. Active ARIPiprazole mon ohydrate (ABILIFY MAINTENA) 300 [...] tablet Active 25 MG PO Daily February 18, 2020 12:00am Start: 02-18-2020 take 25 mg by mouth [...] capsule Discontinued 1 TAB PO Daily June 18, 2019 12:00am February 18, 2020 10:25am take 1 capsule by mo [facility] in the morning, then take 1 capsule by mouth at bedtime celecoxib (CeleBREX) 200 mg capsule Take 1 capsule (200 mg total) by mouth in the morning and 1 capsule (200 mg total) before bedtime. 0 Active Comment on above: take 1 capsule by mo [facility] twice a day if needed cetirizine hydrochloride [...] 15, 2018 1:00am December 19, 2018 1:13pm Start: 10-15-2018 End: 12-19-2018 Cetirizine Discontinued 1 TA B PO As Directed October 15, 2018 1:00am December 19, 2018 1:13pm cholecalciferol 0.125 mg oral capsule (20 sources) Vitamin D Start: 05-27-2024 take 1 capsule by mouth once daily cholecalciferol (Vitamin D-3) 125 MCG (5000 UT) capsule Take 125 mcg by mouth Daily 05/27/2024 Active Start: 03-11-2024 take 1 tablet by yancy once daily Vitamin D3 125 MCG (5000 [...] by mouth once daily. 168 hr cloNIDine 0.86791 mg/hr transdermal system (4 sources) Central alpha-2 Adrenergic Agonist Start: 09-27-20 23 cloNIDine (CATAPRES-TTS) 0.1 mg/[address] 1 patch on the skin once a week. New patch on Monday 0 09/27/2023 Active colestipol hydrochloride 1000 mg oral tablet (10 sources) Bile Acid Sequestrant Start: 10-23-20 24 take 1 tablet by mouth in the morning colestipol (Colestid) 1 g tablet Take 1 g by mouth in the morning and 1 g in the evening. 10/23/2024 Active cyproheptadine hydrochloride 4 mg oral tablet (1 source) Start: 01-10-20 cyproheptadine (Periactin) 4 MG tablet Take 4 mg by mouth as needed at bedtime 01/09/2025 Active Daridorexant (7 sources) Start: 09-16-20 take 1 tablet by mouth once daily Daridorexant (Quviviq) 50 mg tablet Active 25 MG PO Daily September 16, 2024 1:00am Start: 09-16-2024 take 1 tablet by yancy th once daily Daridorexant (Quviviq) 50 mg tablet [...] ml enoxaparin sodium 100 mg/ml prefilled syringe (17 sources) Low Molecular Weight Heparin Start: 05-29-2024 End: 07-11-2024 Enoxaparin Sodium 40 MG/0.4ML solution prefilled syringe INJECT 1 SYRINGE SUBCUTANEOUSLY ONCE EVERY 24 HOURS FOR 30 DAYS 05/29/2024 07/11/2024 Discontinued Start: 06-05-2023 End: 09-16-2024 inject 40 mg by subcutaneous injection once daily Enoxaparin 40 mg/0.4 mL syringe Discontinued 40 MG SUBCUT Daily June 05, 2023 12:00am September 16, 2024 4:04pm estradiol 0.1 mg/ml vaginal cream (20 sources) Estrogen Start: 10-22-2024 estradiol (Est race) 0.1 MG/GM vaginal cream Indications: Hormone replacement therapy , Dyspareunia in female Apply 0.5g vaginally twice weekly. 42.5 g 1 11/26/2024 Active Start: 09-16-2024 Estradiol 0.01 % (0.1 mg/gram) cream Active 1 APPLICATOR VAGINAL .twice a week September 16, 2024 1:00am Start: 09-16-2024 Estradiol 0.01 % (0.1 mg/gram) [...] tablet Discontinued 1 TAB PO Daily June 19, 2019 12:00am February 18, 2020 10:25am famotidine 40 mg oral tablet (9 sources) [...] .3 times a week September 16, 2024 1:00am Start: 09-16-2024 Ferrous Sulfat e 325 mg (65 mg iron) tablet Active MG PO September 16, 2024 12:00am Start: 03-11-2024 take 1 tablet by yancy every other day ferrous sulfate 325 (65 Fe) MG tablet Take 325 mg by mouth every other day 03/11/2024 Active fluticasone propionate 0.05 mg/actuat metered dose nasal spray (20 sources) Corticosteroid Start: 01-20-2025 End: 01-20-2026 take 2 spray(s) nasal route once daily fluticasone (Flonase) 50 MCG/ACT nasal spray Indications: Disorder of right eustachian tube Administer 2 sprays into each nostril Daily Shake gently. Before first use, prime pump. After use, clean tip and replace cap. 16 g 11 01/20/2025 01/20/2026 Active Start: 10-15-2018 End: 11-17-2022 Fluticasone Propionate (Flon ase Allergy Relief) 50 mcg/actuation [place],Suspension Discontinued 2 SPRAY INTRANASAL Daily October 15, 2018 1:00am June 18, 2019 3:04pm Comment on above: Use 1 [place] in each nostril once daily. 30 actuat fluticasone furoate 0.1 mg/actuat / umeclidinium 0.0625 mg/actuat / vilanterol 0.025 mg/actuat dry powder inhaler (20 sources) Anticholinergic, Corticosteroid, beta2-Adrenergic Agonist Start: 02-05-2025 take 1 puff(s) by mouth once daily Trelegy Ellipta 100-62.5-25 MCG/ACT aerosol powder Indications: Mild intermittent asthma, unspecified whether complicated (CMS/HCC) INHALE 1 PUFF BY MOUTH DAILY 60 each 1 02/05/2025 Active Start: 12-11-2024 take 1 puff(s) by mo [facility] once daily Trelegy Ellipta 100-62.5-25 MCG/ACT aerosol powder Indications: Mild intermittent asthma, unspecified whether complicated (CMS/HCC) INHALE 1 PUFF BY MOUTH DAILY 60 each 1 12/11/2024 Active Start: 10-14-2024 take 1 puff(s) by mo uth once daily Trelegy Ellipta 100-62.5-25 MCG/ACT aerosol powder Indications: Mild intermittent asthma, unspecified whether complicated (CMS/HCC) INHALE 1 PUFF BY MOUTH DAILY 60 each 1 10/14/2024 Active Start: 09-16-2024 Fluticasone-Um eclidin-Vilanter (Trelegy Ellipta) 100-62.5-25 mcg blister with device Active 1 INH INHALATION Daily September 16, 2024 1:00am Start: 09-16-2024 Fluticasone-Um eclidin-Vilanter (Trelegy Ellipta) 100-62.5-25 mcg blister with device Active 1 INH INHALATION Daily September 16, 2024 12:00am Start: 09-16-2024 Fluticasone-Um eclidin-Vilanter (Trelegy Ellipta) 100-62.5-25 mcg blister with device Active INHALATION September 16, 2024 12:00am Start: 08-15-2024 take 1 puff(s) by mo uth once daily Trelegy Ellipta 100-62.5-25 MCG/ACT aerosol powder Indications: Mild intermittent asthma, unspecified whether complicated (CMS/HCC) INHALE 1 PUFF BY MOUTH DAILY 60 each 1 08/15/2024 Active Start: 01-11-2024 End: 12-08-2024 take 1 puff(s) by inhalation once daily Ptpluhjfjfe-Wenqgzuvl-Nqjiun 100-62.5-25 MCG/ACT aerosol powder Indications: Asthma Inhale [...] puff(s) by in halation in the morning xwwxzbldxft-ozaxhphyo-kmgpcyti (TRELEGY ELLIPTA) 100-62.5-25 mcg blister with device Indications: Asthma, unspecified asthma severity, unspecified whether complicated, unspecified whether persistent Inhale 1 puff in the morning. 60 each 5 05/31/2022 Active End: 07-11-2024 Eglxpdkjblo-Gudhcwbmf-Jkhtcn (Trelegy Ellipta) 100-62.5-25 MCG/ACT aerosol powder Inhale 07/11/2024 Discontinued take 1 puff(s) by in halation once daily Trelegy Ellipta 100-62.5-25 MCG/INH 1 puff Inhalation Once a day Not-Taking Comment on above: Inhale 1 Puff as ins tructed once daily. fluvoxaMINE maleate 50 mg oral tablet (14 sources) Serotonin Reuptake Inhibitor Start: take 1 tablet by mouth once daily at bedtime Fluvoxamine 50 mg tablet Active 50 MG PO Daily at bedtime October 24, 2024 1:00am 1.5 ml fremanezumab-vfrm 150 mg/ml auto-injector (20 sources) Start: End: fremanezumab-vfrm (AJOVY AUTOINJECTOR) 225 mg/1.5 mL Indications: Other migraine without status migrainosus, not intractable inject 1 AND 1/2 milliliters subcutaneously every 28 DAYS 1.5 mL 5 10/23/2023 Active Start: 06-05-2023 End: 09-16-2024 Fremanezumab-Vfrm (Ajovy Aut oinjector) 225 mg/1.5 mL auto-injector Discontinued 225 MG SUBCUT every month June 05, 2023 12:00am September 16, 2024 4:04pm End: 07-11-2024 fremanezumab (Ajovy) 225 MG/ 1.5ML auto-injector Inject 225 mg under the skin. 07/11/2024 Discontinued Comment on above: inject 1 AND 1/2 milliliters subcutaneou sly every 28 DAYS 1 ml galcanezumab-gnl m 120 mg/ml auto-injector (20 sources) Start: 05-15-20 24 End: 12-11-19 inject 120 mg by subcutaneous [...] inulin 200 mg / lactobacillus rhamnosus gg [id number] unt oral capsule (1 source) Start: End: take 1 capsule by mouth once daily lactobacillus rhamnosus (CULTURELLE) 10 billion cell -200 mg capsule Take 1 capsule by mouth once daily. 30 capsule 0 06/07/2022 07/07/2022 Active Comment on above: Take 1 capsule by [facility] once daily. iv contrast (will be provided [...] 15, 2018 1:00am December 19, 2018 1:14pm End: 10-25-2024 take 1 tablet by mouth [...] mg by mouth once daily. lisdexamfetamine dimesylate 60 mg oral capsule (20 sources) Central Nervous System Stimulant Start: 01-08-2025 lisdexamfetamine (Vyvanse) 60 MG capsule 01/08/2025 Active Start: 03-09-2024 End: 07-11-2024 take 1 capsule by mouth once daily [...] above: Take 1 capsule by mo [facility] every afternoon. LORazepam 1 mg oral [...] Twice daily as needed for Anxiety June 05, 2023 12:00am September 16, 2024 4:04pm take 1 tablet by yancy every twenty-four hours LORazepam 0.5 MG 1 tablet at bedtime as needed Orally Once a day Active losartan potassium 50 mg oral tablet (20 sources) Angiotensin 2 Receptor Zack Start: 01-20-2025 take 1 tablet by mouth once daily losartan (Cozaar) 50 MG tablet Indications: Hypertension, unspecified type (CMS/HCC) Take 1 tablet (50 mg) by mouth Daily 30 tablet 5 01/20/2025 Active Start: 05-14-2024 End: 05-14-2025 take 1 tablet by mouth once daily Losartan 25 mg table t Active 25 MG PO Daily September 16, 2024 1:00am meloxicam 15 mg oral tablet (1 source) Nonsteroidal Anti-inflammatory Drug Start: 01-03-2025 take 1 tablet by mouth once daily meloxicam (Mobic) 15 MG tablet TAKE 1 TABLET BY MOUTH EVERY DAY FOR 30 DAYS 01/03/2025 Active 24 hr methylphenidate hydrochloride 54 mg extended release oral tablet (20 sources) Central Nervous System Stimulant Start: 09-16-2024 take 1 mg by mouth every twenty-fou r hours Methylphenidate Hcl 54 mg tablet extended release 24hr Active MG PO September 16, 2024 12:00am Start: 06-26-2024 take 1 tablet by yancy th once daily Methylphenidate Hcl 54 mg tablet extended release 24hr Active 54 MG PO Daily September 16, 2024 1:00am Start: 09-13-2017 End: 10-01-2018 take 1 tablet by mouth twice daily Methylphenidate Hcl 20 mg tablet Discontinued 1 TAB PO Twice daily September 13, 2017 1:00am October 01, 2018 10:43am 24 hr mirabegron 50 mg extended release oral tablet (20 sources) beta3-Adrenergic Agonist Start: 09-16-2024 take 1 tablet by mouth once daily Mirabegron (Myrbetriq) 50 mg tablet extended release 24 hr Active 50 MG PO Daily September 16, 2024 1:00am Start: 09-04-2024 End: 09-04-2025 take 1 tablet by mouth every twenty-four hours at bedtime mirabegron ER (Myrbetriq) 50 MG 24 hr tablet Indications: Urinary frequency , Urinary urgency Take 1 tablet (50 mg) by mouth at bedtime Do not crush, chew, or split. 30 tablet 11 09/04/2024 09/04/2025 Active mirtazapine 15 mg oral table t (15 sources) Start: 12-26-2024 mirtazapine (R emeron) 15 MG tablet 12/26/2024 Active Start: 12-19-2018 End: 02-18-2020 take 2 tablets by mouth once daily Mirtazapine (Remeron) 15 mg Tablet Discontinued 30 MG PO Daily December 19, 2018 1:00am February 18, 2020 10:26am Multiple Vitamin (Daily-Elisa Multivitamin) tablet (8 sources) Start: 11-04-2024 take 1 tablet by mouth once daily Multiple Vitamin (Daily-Elisa Multivitamin) tablet Take 1 tablet by mouth Daily 11/04/2024 Active nystatin [id number] unt/ml oral suspension (20 sources) Polyene Antifungal Start: 08-01-2024 End: 08-09-2024 nystatin (Mycostatin) 317167 UNIT/ML suspension Indications: Oral candidiasis Take 5 mL (500,000 Units) by mouth in the morning and 5 mL (500,000 Units) at noon and 5 mL (500,000 Units) in the evening and 5 mL (500,000 Units) before bedtime. Do all this for 8 days. 160 mL 08/01/2024 08/09/2024 Active Start: 05-03-2024 End: 07-11-2024 nystatin (Mycostatin) [id number] UNIT/ML suspension Take 5 mL by mouth [...] morning omeprazole (PriLOSEC) [address] capsule Indications: Gastro-esophageal reflux disease without esophagitis Take 1 capsule (40 mg) by mouth in the morning. 90 capsule 3 01/20/2025 Active Start: 09-13-2017 End: 06-05-2023 take 1 [...] Start: 5 take 1 tablet by mouth in the morning rOPINIRole (Requip) 1 MG tablet Indications: Restless legs syndrome Take 1 tablet (1 mg) by mouth in the morning and 1 tablet (1 mg) before bedtime. 60 tablet 5 02/06/2025 Active Start: 11-26-2024 take 1 tablet by yancy th at bedtime rOPINIRole (Requip) 2 MG tablet Indications: Restless legs syndrome Take 1 tablet (2 mg) by mouth at bedtime 01/20/2025 Active Start: 06-05-2023 End: 11-30-2024 take 1 tablet by mouth once daily in the morning Ropinirole 1 mg Tablet Active 1 MG PO Every morning June 05, 2023 12:00am Start: 09-19-2021 take 1 mg by mouth t wice daily, then take 1 mg by mouth in the morning, then take 1 tablet by mouth in the evening rOPINIRole (REQUIP) 2 mg tablet Take 1 mg by mouth twice daily. Takes 1 mg in the AM and 2 mg PM 0 09/19/2021 Active Start: 11-29-2019 End: 11-30-2024 take 1 tablet by mouth once daily at bedtime Ropinirole 2 mg tablet Active 2 MG PO Daily at bedtime September 16, 2024 1:00am Start: 06-19-2019 End: 09-16-2024 take 2 mg by mouth once daily at bedtime Ropinirole (Requip) 5 mg Tablet Discontinued 2 MG PO Daily at bedtime June 19, 2019 12:00am September 16, 2024 4:04pm Comment on above: Take 2 mg by mouth t wice daily. Takes 2 mg in the AM and 4 mg PM Take 1 mg by mouth t wice daily. Takes 1 mg in the AM and 2 mg PM sennosides, detention 8.6 mg oral tablet (6 sources) Start: [...] tablet (2 sources) Orexin Receptor Antagonist Start: End: take 1 tablet by mouth at [...] PO Twice daily as needed for Pain July 01, 2019 12:00am February 18, 2020 10:26am Start: 06-18-2019 End: 06-19-2019 take 1 tablet by mouth twice daily as needed for pain Tramadol 50 mg Tablet Discontinued 50 MG PO Twice daily as needed for Pain June 18, 2019 12:00am June 19, 2019 [...] Daily at bedtime June 05, 2023 12:00am September 16, 2024 4:04pm Start: 06-05-2023 take 200 mg by mouth [...] tablet Disc ontinued TABLET November 02, 2018 1:00am December 19, 2018 [...] mg / caffeine 65 mg oral tablet (14 sources) Platelet Aggregation Inhibitor, Nonsteroidal Anti-inflammatory Drug, Central Nervous System Stimulant, Methylxanthine Start: 09-13-2017 End: 10-01-2018 take 1 tablet by mouth every four to six hours as needed for headache Aspirin-Acetaminop hen-Caffeine (Excedrin Migraine) 250-250-65 mg Tablet Discontinued 1 - 2 TAB PO EVERY 4-6 HOURS as needed for headaches September 13, 2017 1:00am October 01, 2018 10:40am alendronic acid 70 mg oral tablet (11 sources) Bisphosphonate Start: 06-05-2023 End: 09-16-2024 take 1 tablet by mouth every week Alendronate (Fosamax) 70 mg Tablet Discontinued 70 MG PO every week June 05, 2023 12:00am September 16, 2024 4:04pm ALPRAZolam 1 mg oral tablet (14 sources) Benzodiazepine Start: 09-13-2017 End: 10-01-2018 take 1 tablet by mouth three times daily Alprazolam 1 mg tablet Discontinued 1 TAB PO Three times daily September 13, 2017 1:00am October 01, 2018 10:40am amitriptyline hydrochloride 25 mg oral tablet (14 sources) Tricyclic Antidepressant Start: 02-18-2020 End: 06-05-2023 take 5 tablets by mouth once daily Amitriptyline 25 mg Tablet Discontinued 125 MG PO Daily February 18, 2020 12:00am June 05, 2023 10:13am Start: 02-18-2020 End: 06-05-2023 take 125 mg by mouth once daily Amitriptyline Discontinued 125 MG PO Daily February 18, 2020 12:00am June 05, 2023 10:13am atorvastatin 20 mg oral tablet (20 sources) HMG-CoA Reductase Inhibitor Start: 03-10-2022 End: 09-16-2024 take 1 tablet by mouth once daily Atorvastatin (Lipitor) 20 mg Tablet Discontinued 20 MG PO Daily June 05, 2023 12:00am September 16, 2024 4:04pm Comment on above: Take 20 mg by [...] (Therapy completed) brexpiprazole 3 mg oral tablet (14 sources) Atypical Antipsychotic Start: 02-18-2020 End: 06-05-2023 take 1 tablet by mouth once daily Brexpiprazole (Rexulti) 3 mg Tablet Discontinued 3 MG PO Daily February 18, 2020 12:00am June 05, 2023 10:13am busPIRone hydrochloride 5 mg oral tablet (5 [...] 500 mg cephalexin 500 mg oral capsule (14 sources) Cephalosporin Antibacterial Start: 09-20-20 17 End: 10-01-20 18 take 1 capsule by mouth every eight hours Cephalexin (Keflex) 500 mg capsule Discontinued 500 MG PO Q8H 26 05September 20, 2017 1:00am October 01, 2018 10:40am clonazePAM 0.5 mg oral tablet (20 sources) [...] above: take 1 capsule by mo [facility] every morning BEFORE BREAKFAST take 1 capsule by mo [facility] before breakfast Dexlansoprazole (Dexilant) 60 mg Capsule,Biphase Delayed Releas (11 sources) Start: 023 End: take 1 capsule by mouth once daily Dexlansoprazole (Dexilant) 60 mg Capsule,Biphase Delayed Releas Discontinued 60 MG PO Daily June 05, 2023 12:00am September 16, 2024 4:04pm Start: 06-05-2023 End: 09-16-2024 take 1 capsule by mouth once daily Dexlansoprazole (Dexilant) 60 mg Capsule,Biphase Delayed Releas Discontinued 60 MG PO Daily June 04, 2023 11:00pm September 16, 2024 3:04pm Start: 06-05-2023 take 1 capsule by mo ut once daily Dexlansoprazole (Dexilant) 60 mg Capsule,Biphase [...] completed) docusate sodium 50 mg / sennosides, detention 8.6 mg oral tablet (14 sources) Start: 09-20-2017 End: 10-01-2018 take 2 tablets by mouth twice daily Sennosides-Docus ate Sodium (Dok Plus) 8.6-50 mg Tablet Discontinued 2 TAB PO Twice daily 40 September 20, 2017 1:00am October 01, 2018 10:42am eszopiclone 3 mg oral tablet (20 sources) Start: 06-05-2023 End: 09-16-2024 take 1 tablet by mouth once daily at bedtime Eszopiclone (Lunesta) 3 mg Tablet Discontinued 3 MG PO Daily at bedtime June 05, 2023 12:00am September 16, 2024 4:04pm 24 hr fexofenadine hydrochloride 180 mg / pseudoephedrine hydrochloride 240 mg extended release oral tablet (14 sources) alpha-Adrenergic Agonist, Histamine-1 Receptor Antagonist Start: 12-19-2018 End: 06-18-2019 take 1 tablet by mouth once daily in the morning, then take 1 tablet by mouth every twenty-four hours Fexofenadine-Pse udoephedrine (Ember-D 24 Hour) 180-240 mg Tablet Extended Release 24 Hr Discontinued 1 TAB PO Every morning December 19, 2018 1:00am June 18, 2019 3:04pm fluconazole 150 mg oral tablet (14 sources) Azole Antifungal Start: 02-18-2020 End: 06-05-2023 Fluconazole (Diflucan) 150 mg tablet Discontinued 150 MG PO Once 1 February 18, 2020 12:00am June 05, 2023 10:13am take one PO, if still symptomatic then take another pill in 72 hrs Fluticasone Propion-Salmeterol (20 sources) Corticosteroid, beta2-Adrenergic Agonist [...] 2023 10:13am Start: 12-19-2018 End: 06-18-2019 take 1 tablet by mouth twice daily Hydroxyzine Hcl 25 mg Tablet Discontinued 25 MG PO Twice daily December 19, 2018 1:00am June 18, 2019 3:04pm ibuprofen 800 mg oral tablet (13 sources) [...] up to 7 days. lactobacillus rhamnosus gg [id number] unt oral capsule (20 sources) Start: End: [...] 1 capsule by mo ut once daily. linaclotide (14 sources) Guanylate Cyclase-C Agonist Start: 10-01-2018 End: 06-19-2019 take 1 capsule by mouth once daily Linaclotide 145 mcg capsule Discontinued 145 MCG PO Daily October 01, 2018 1:00am June 19, 2019 1:23pm Start: 10-01-2018 End: 06-19-2019 take 1 capsule by mouth once daily Linaclotide 145 mcg capsule Discontinued 145 MCG PO Daily October 01, 2018 12:00am June 19, 2019 12:23pm Start: 10-01-2018 End: 06-19-2019 take 145 ug by mouth once daily Linaclotide Discontinu ed 145 MCG PO Daily October 01, 2018 1:00am June 19, 2019 1:23pm Start: 10-01-2018 End: 06-19-2019 take 145 ug by mouth once daily Linaclotide Discontinu ed 145 MCG PO Daily October 01, 2018 12:00am June 19, 2019 12:23pm LOCM iohexol (OMNIPAQUE 300 MG/ML) injection 100 mL (1 source) Start: 08-12-2023 End: 08-12-2023 LOCM iohexol (OMNIPAQUE 300 MG/ML) injection 100 mL lurasidone hydrochloride 40 mg oral tablet (14 sources) Atypical Antipsychotic Start: 06-18-2019 End: 02-18-2020 take 1 tablet by mouth once daily Lurasidone (Latuda) 40 mg tablet Discontinued 60 MG PO Daily June 18, 2019 12:00am February 18, 2020 10:26am methylPREDNISolone 4 mg oral tablet (20 sources) Corticosteroid Start: 09-16-2024 End: 10-14-2024 take 1 tablet by mouth once Methylprednisolone (Medrol (Salvador)) 4 mg tablets,dose pack Discontinued 0 PO per package directions September 16, 2024 1:00am October 14, 2024 9:29am PO PER PKG DIR for 6 days [...] and 11pm, the evening prior to surgery. montelukast 10 mg oral tablet (14 sources) Leukotriene Receptor Antagonist Start: 018 End: take 1 tablet by mouth once daily in the evening Montelukast 10 mg tablet Discontinued 10 MG PO Every evening October 01, 2018 1:00am December 19, 2018 1:14pm 1 ml morphine sulfate 4 mg/ml cartridge (1 source) Opioid Agonist Start: 023 End: Morphine Sulfate injection 4 mg neomycin sulfate 500 mg oral tablet (10 sources) Aminoglycoside Antibacterial Start: neomycin 500 mg tablet Indications: Follow-up examination after colorectal surgery Take 2 tablets by mouth as directed. Take 2 tablet at 6pm, 7pm, and 11pm the evening prior to surgery. 6 tablet 0 02/09/2022 Active Comment on above: Take 2 tablets by [facility] as directed. Take 2 tablet at 6pm, 7pm, and 11pm the evening prior to surgery. nitrofurantoin, macrocrystals 25 mg / nitrofurantoin, monohydrate 75 mg oral capsule (17 sources) Nitrofuran Antibacterial Start: End: take 1 capsule by mouth twice daily at mealtime Nitrofurantoin Monohyd/M-Cryst (Macrobid) 100 mg capsule Discontinued 100 MG PO Twice daily 10 February 18, 2020 12:00am June 05, 2023 10:13am must administer with a meal/food Comment on above: Take 1 capsule by [facility] twice daily. 24 hr oxybutynin chloride 10 mg extended release oral tablet (14 sources) Cholinergic Muscarinic Antagonist Start: End: take 1 tablet by mouth once daily Oxybutynin Chloride (Ditropan Xl) 10 mg Tablet Extended Release 24hr Discontinued 10 MG PO Daily October 01, 2018 1:00am June 19, 2019 1:23pm phenazopyridine hydrochloride 200 mg oral tablet (14 sources) Start: End: take 1 tablet by mouth every eight hours Phenazopyridine (Pyridium) 200 mg tablet Discontinued 200 MG PO Q8H 6 February 18, 2020 12:00am June 05, 2023 10:13am polyethylene glycol [id number] mg powder for oral solution (3 sources) [...] 75 mg oral capsule (20 sources) Start: 024 End: take 1 capsule by mouth in [...] 01, 2018 1:00am October 15, 2018 3:24pm End: 10-25-2024 take 2 capsules by mouth [...] above: Take 1 capsule by mo [facility] as directed. As needed for constipation QUEtiapine 200 mg oral tablet (14 sources) Atypical Antipsychotic Start: 10-01-2018 End: 12-19-2018 [...] above: Take 2 tablets by mo [facility] three times daily as needed. [...] Comment on above: Take 1 tablet by [facility] every 8 hours as needed. [...] Comment on above: Take 1,000 mcg by [facility] once daily. vortioxetine 10 mg oral tablet [...] unspecified] Onset: 4 01-22-2024 Episodic Allergic reactions (20 sources) Atopic dermatitis; Translations: [Atopic dermatitis, unspecified] Onset: 0 Resolved: 3 04-04-2023 Chronic Anxiety disorders (20 sources) Anxiety; Translations: [...] Episodic Conditions associated with dizziness or vertigo (17 sources) Postural dizziness; Translations: [Dizziness and giddiness] 02-18-2020 Episodic Diseases of mouth; excluding dental (2 sources) Glossodynia; Translations: [Glossodynia] 08-01-2024 Episodic Disorders of lipid metabolism (20 sources) Pure hypercholesterolemia, unspecified; Translations: [Hyperlipidemia] Onset: 3 Resolved: 3 04-04-2023 Chronic Disorders usually diagnosed in infancy, childhood, or adolescence (20 sources) Attention deficit hyperactivity disorder, predominantly inattentive type; Translations: [Other specified behavioral and emotional disorders with onset usually occurring in childhood and adolescence] Onset: 3 04-04-2023 Chronic Esophageal disorders (20 sources) Gastroesophageal reflux disease; Translations: [Gastro-esophageal reflux disease without esophagitis] Onset: 1 10-15-2021 Chronic Esophageal disorders (2 sources) Esophagitis; Translations: [River grade D esophagitis] 04-12-2024 Episodic Essential hypertension [...] 2 Chronic Other aftercare (1 source) Other computer terminal operator (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; Translations: [OTH TAVERN KEEPER CURRENT DRUG THERAPY] Onset: 3 Episodic Other [...] 3 04-04-2023 Chronic Other nervous system disorders (1 source) Myopathy, unspecified; Translations: [Myopathy, unspecified] Onset: 5 Chronic Other nervous system disorders (5 sources) [...] 1 10-24-2023 Chronic Other upper respiratory infections (14 sources) Upper respiratory infection; Translations: [Acute upper [...] specified] Onset: 2 02-18-2020 Episodic Viral infection (14 sources) Disease caused by 2019-nCoV; Translations: [COVID-19] [...] lability] Onset: 04-04-2023 04-04-2023 Episodic Mood disorders (9 sources) Mood disorders Onset: 10-23-2023 Resolved: 01-20-2025 10-23-2023 Nausea and vomiting (20 sources) Nausea [...] Translations: [Eructation] Onset: 11-30-2023 11-30-2023 Episodic Other gastrointestinal disorders (1 source) Abdominal distension (gaseous); Translations: [Abdominal distension (gaseous)] Onset: 11-14-2024 Episodic Other infections; including parasitic (20 sources) [...] RT ANKLE FOOT] Onset: 11-03-2022 Episodic Other non-traumatic joint disorders (1 source) Pain in right shoulder; Translations: [Pain in right shoulder] Onset: 11-20-2024 Episodic Other non-traumatic joint disorders (1 source) Pain in left shoulder; Translations: [Pain in left shoulder] Onset: 11-20-2024 Episodic Other nutritional; endocrine; and metabolic disorders [...] nutritional; endocrine; and metabolic disorders (1 source) Weight decreased; Translations: [Abnormal weight loss] Onset: 09-08-2023 09-08-2023 [...] Test Name Value Interpretation Reference Range Facility Magnetic resonance imaging r eportOrdered By: Eitan Weber on 02-25-2025 Study report [facility] [place] [address] MRI Report Signed Patient: Mary Leal MR#: [id number] : 1970 Acct:[id number] Age/Sex: 54 / F ADM Date: 5 Loc: [facility] Room: Type: [facility] Attending Dr: Monica IBARRA Copies to: FRED Schafer~ Ordering Provider: FRED Schafer Date of Service: 02/25/25 MR/MR thoracic spine wo con: THORACIC RADICULOPATHY ([id number]) XR/XR pre/post mri xray: THOARCIC RADICULOPATHY MRI thoracic spine performed without contrast/2 views of the thoracic spine INDICATION: Mid back pain, no known injury thoracic radiculopathy COMPARISON: None FINDINGS: 2 views of the thoracic spine demonstrate mild intervertebral space narrowing and anterior endplate spurring involving the lower thoracic spines. Right chest wall spiral West L5 the descending to the neck. Postsurgical changes of the cervical spine partially visualized. MRI of the thoracic spine demonstrates maintenance of the vertebral heights and disc space heights and alignment. No abnormal bone marrow edema. Minimal anterior marginal plate spurring involving the lower thoracic levels. No significant disc disease, disc protrusion, central canal, or neural foramen identified. There is evidence of facet arthropathy notably T8-T11 this causes mild neural foraminal narrowing T8-T10. The thoracic cord demonstrates normal signal and morphology. MR/MR thoracic spine wo con IMPRESSION: Overall mild degenerative changes of the mid to lower thoracic spinepredominantly caused by posterior element degenerative changes which causes mildneural foraminal narrowing lower thoracic spine.. Impression dictated by: Eitan Weber M.D.02/25/2025 10:14 AM Dictation Location: [place] [address] Transcribed By: [facility] 02/25/25 1014 Dictated By: Eitan Weber MD 02/25/25 1008 Signed By: 02/25/25 [facility] Work Phone: XR pre/post mri xrayon 02-25 XR pre/post mri xray [facility] [place] [address] MRI Report Signed Patient: Mary Leal MR#: [id number] : 1970 Acct:[id number] Age/Sex: 54 / F ADM Date: 02/25/25 Loc: [facility] Room: Type: [facility] Attending Dr: Monica IBARRA Copies to: FRED Schafer Ordering Provider: FRED Schafer Date of Service: 02/25/25 MR/MR thoracic spine wo con: THORACIC RADICULOPATHY ([id number]) XR/XR pre/post mri xray: THOARCIC RADICULOPATHY MRI thoracic spine performed without contrast/2 views of the thoracic spine INDICATION: Mid back pain, no known injury thoracic radiculopathy COMPARISON: None FINDINGS: 2 views of the thoracic spine demonstrate mild intervertebral space narrowing and anterior endplate spurring involving the lower thoracic spines. Right chest wall spiral West L5 the descending to the neck. Postsurgical changes of the cervical spine partially visualized. MRI of the thoracic spine demonstrates maintenance of the vertebral heights and disc space heights and alignment. No abnormal bone marrow edema. Minimal anterior marginal plate spurring involving the lower thoracic levels. No significant disc disease, disc protrusion, central canal, or neural foramen identified. There is evidence of facet arthropathy notably T8-T11 this causes mild neural foraminal narrowing T8-T10. The thoracic cord demonstrates normal signal and morphology. MR/MR thoracic spine wo con IMPRESSION: Overall mild degenerative changes of the mid to lower thoracic spine predominantly caused by posterior element degenerative changes which causes mild neural foraminal narrowing lower thoracic spine.. Impression dictated by: Eitan Weber M.D.02/25/2025 10:14 AM Dictation Location: [place] [address] Transcribed By: [facility] 02/25/25 1014 Dictated By: Eitan Weber MD 02/25/25 1008 Signed By: 02/25/25 1014 Normal [facility] Alanine aminotransferase [En zymatic activity/volume] in Serum or PlasmaOrdered By: Everett Valdez on 02-17-2025 ALT [Catalytic activity/Vol] Alanine aminotransferase [Enzymatic activity/volume] in Serum or Plasma [facility] Albumin [Mass/volume] in Ser um or Plasma by Bromocresol green (BCG) dye binding methoOrdered By: Everett Valdez on 02-17-2025 Albumin BCG dye [Mass/Vol] Albumin [Mass/volume] in Serum or Plasma by Bromocresol green (BCG) dye binding metho 3.5-5.7 [facility] Alkaline phosphatase [Enzyma tic activity/volume] in Serum or PlasmaOrdered By: Everett Valdez on 02-17-2025 ALP [Catalytic activity/Vol] Alkaline phosphatase [Enzymatic activity/volume] in Serum or Plasma 34-104 [facility] Aspartate aminotransferase [ Enzymatic activity/volume] in Serum or PlasmaOrdered By: Everett Valdez on 02-17-2025 AST [Catalytic activity/Vol] Aspartate aminotransferase [Enzymatic activity/volume] in Serum or Plasma 13-39 [facility] Basophils Auto (Bld) [#/Vol] Ordered By: Everett Valdez on 02-17-2025 Basophils (Bld) [#/Vol] Automated basophil count 0.0-0.2 [facility] Basophils/100 WBC Auto (Bld) Ordered By: Everett Valdez on 02-17-2025 Basophils/100 WBC (Bld) Automated basophil % . [facility] Bilirubin.total [Mass/volume ] in Serum or PlasmaOrdered By: Everett Valdez on 02-17-2025 Bilirubin [Mass/Vol] Bilirubin.total [Mass/volume] in Serum or Plasma 0.3-1.0 [facility] C reactive protein [Mass/vol ume] in Serum or PlasmaOrdered By: Everett Valdez on 02-17-2025 CRP [Mass/Vol] C reactive protein [Mass/volume] in Serum or Plasma 0.0-0.5 [facility] C-Reactive Proteinon 025 CRP [Mass/Vol] mg/L Normal 0.0-0.5 [facility] Comment on above: Result Comment: PERF ORMED BY: [place] [id number] PATHOLOGIST BEAM DYER RECESSED VAT PAZ RUTHERFORD M.D. Performed By: #### B #### [address] Calcium [Mass/volume] in Ser um or PlasmaOrdered By: Everett Valdez on 02-17-2025 Calcium [Mass/Vol] Calcium [Mass/volume ] in Serum or Plasma 8.6-10.3 [facility] Carbon dioxide, total [Moles /volume] in Serum or PlasmaOrdered By: Everett Valdez on 02-17-2025 CO2 [Moles/Vol] Carbon dioxide, tota l [Moles/volume] in Serum or Plasma 21.0-31.0 [facility] Chloride [Moles/volume] in S jay or PlasmaOrdered By: Everett Terryrow on 02-17-2025 Chloride [Moles/Vol] Chloride [Moles/volume] in Serum or Plasma 98-107 [facility] Complete Blood Count Auto Di ffon 02-17-2025 Basophils (Bld) [#/Vol] 0.0 10*3/uL Normal 0.0-0.2 [facility] Comment on above: Performed By: #### B MP #### [address] Basophils/100 WBC (Bld) 0.7 % Normal . [facility] Comment on above: Performed By: #### B MP #### [address] Eosinophils (Bld) [#/Vol] 0.1 10*3/uL Normal 0.0-0.45 [facility] Comment on above: Performed By: #### B MP #### [address] Eosinophils/100 WBC (Bld) 1.9 % Normal . [facility] Comment on above: Performed By: #### B MP #### [address] Erythrocyte distribution width (RBC) [Ratio] 13.6 % Normal 11.9-15.3 [facility] Comment on above: Performed By: #### B MP #### [address] Hematocrit (Bld) [Volume fraction] 41.0 % Normal 34.0-46.4 [facility] Comment on above: Performed By: #### B MP #### [address] Hemoglobin (Bld) [Mass/Vol] 14.0 g/dL Normal 11.8-15.4 [facility] Comment on above: Performed By: #### B MP #### [address] Lymphocytes (Bld) [#/Vol] 1.4 10*3/uL Normal 1.00-4.8 [facility] Comment on above: Performed By: #### B MP #### [address] Lymphocytes/100 WBC (Bld) 29.2 % Normal . [facility] Comment on above: Performed By: #### B MP #### [address] MCH (RBC) [Entitic mass] 28.3 pg Normal 24.7-34.3 [facility] Comment on above: Performed By: #### B MP #### [address] MCV (RBC) [Entitic vol] 83.3 fL Normal 80-100 [facility] Comment on above: Performed By: #### B MP #### [address] Mean Corpuscular HGB Conc 34.0 g/dL Normal 32.0-35.0 [facility] Comment on above: Performed By: #### B MP #### [address] Monocytes (Bld) [#/Vol] 0.2 10*3/uL Normal 0.0-0.8 [facility] Comment on above: Performed By: #### B MP #### [address] Monocytes/100 WBC (Bld) 5.0 % Normal . [facility] Comment on above: Performed By: #### B MP #### [address] Neutrophils (Bld) [#/Vol] 3.1 10*3/uL Normal 1.8-7.7 [facility] Comment on above: Performed By: #### B MP #### [address] Neutrophils/100 WBC (Bld) 63.2 % Normal . [facility] Comment on above: Performed By: #### B MP #### [address] NRBC% 0.1 /100{WBC} Normal 0-0.5 [facility] Comment on above: Performed By: #### B MP #### [address] Platelet mean volume (Bld) [Entitic vol] 7.6 fL Normal 6.3-10.7 [facility] Comment on above: Performed By: #### B MP #### [address] Platelets (Bld) [#/Vol] 312 10*3/uL Normal 150-450 [facility] [facility] Comment on above: Performed By: #### B MP #### [address] RBC (Bld) [#/Vol] 4.93 10*6/uL Normal 3.60-5.[address] [facility] Comment on above: Performed By: #### B MP #### [address] WBC (Bld) [#/Vol] 4.9 10*3/uL Normal 3.8-11.6 [facility] Comment on above: Performed By: #### B MP #### [address] Comprehensive Metabolic Pane boyd 02-17-2025 Albumin [Mass/Vol] 4.2 g/dL Normal 3.5-5.7 [facility] Comment on above: Performed By: #### B MP #### [address] Albumin/Globulin [Mass ratio] 2.0 {ratio} Normal [facility] Comment on above: Performed By: #### B MP #### [address] ALP [Catalytic activity/Vol] 96 U/L Normal 34-104 [facility] Comment on above: Performed By: #### B MP #### [address] ALT [Catalytic activity/Vol] 38 U/L Normal 7-52 [facility] Comment on above: Performed By: #### B MP #### [address] Anion gap [Moles/Vol] 9.4 mmol/L Normal 6.0-15.0 [facility] Comment on above: Performed By: #### B MP #### [address] AST [Catalytic activity/Vol] 34 U/L Normal 13-39 [facility] Comment on above: Performed By: #### B MP #### [address] Bilirubin [Mass/Vol] 0.3 mg/dL Normal 0.3-1.0 [facility] Comment on above: Performed By: #### B MP #### [address] Calcium [Mass/Vol] 8.9 mg/dL Normal 8.6-10.3 [facility] Comment on above: Performed By: #### B MP #### [address] Chloride [Moles/Vol] 104 mmol/L Normal 98-107 [facility] Comment on above: Performed By: #### B MP #### [place] [address] [place] CO2 [Moles/Vol] 30.2 mmol/L Normal 21.0-31.0 [facility] Comment on above: Performed By: #### B MP #### [address] Creatinine [Mass/Vol] 0.61 mg/dL Normal 0.60-1.20 [facility] Comment on above: Performed By: #### B MP #### [address] GFR/1.73 sq M.predicted MDRD (S/P/Bld) [Vol rate/Area] mL/min/{1.73_m2} Normal [facility] Comment on above: Performed By: #### B MP #### [address] Globulin (S) [Mass/Vol] 2.1 g/dL Normal [facility] Comment on above: Performed By: #### B MP #### [address] Glucose [Mass/Vol] 94 mg/dL Normal 70-100 [facility] Comment on above: Result Comment: [facility] Glucose Reference Range is dependent on time and content of last meal. Glucose of more than 200 mg/dL in a nonstressed, ambulatory subject supports the diagnosis of Diabetes Mellitus. ADA recommended reference range Performed By: #### B MP #### [address] Potassium [Moles/Vol] 4.6 mmol/L Normal 3.5-5.1 [facility] Comment on above: Performed By: #### B MP #### [address] Protein [Mass/Vol] 6.3 g/dL Low 6.4-8.9 [facility] Comment on above: Performed By: #### B MP #### [address] Sodium [Moles/Vol] 139 mmol/L Normal 136-145 [facility] Comment on above: Performed By: #### B MP #### [place] [address] [place] Urea nitrogen [Mass/Vol] 19 mg/dL Normal 7-25 [facility] Comment on above: Performed By: #### B MP #### [address] Creatine Kinaseon 02-17-2025 CK [Catalytic activity/Vol] 539 U/L High 30-223 [facility] Comment on above: Result Comment: PERF ORMED BY: [place] [address] PATHOLOGIST BEAM DYER RECESSED VAT PAZ RUTHERFORD M.D. Performed By: #### B MP #### [address] [address] [facility] Creatine kinase [Enzymatic a ctivity/volume] in Serum or PlasmaOrdered By: Everett Valdez on 02-17-2025 CK [Catalytic activity/Vol] Creatine kinase [Enzymatic activity/volume] in Serum or Plasma High 30 [facility] Creatinine [Mass/volume] in Serum or PlasmaOrdered By: Everett Valdez on 02-17-2025 Creatinine [Mass/Vol] Creatinine [Mass/volume] in Serum or Plasma 0.60-1.20 [facility] Eosinophils Auto (Bld) [#/Vo l]Ordered By: Everett Valdez on 02-17-2025 Eosinophils (Bld) [#/Vol] Automated eosinophil count 0.0-0.45 [facility] Eosinophils/100 WBC Auto (Bl d)Ordered By: Everett Valdez on 02-17-2025 Eosinophils/100 WBC (Bld) Automated eosinophil % . [facility] Erythrocyte Sedimentation Ra lian 02-17-2025 ESR (Bld) [Velocity] 4 mm/h Normal 0-29 [facility] Comment on above: Result Comment: PERF ORMED BY: [address] [address] PATHOLOGIST BEAM DYER RECESSED VAT PAZ RUTHERFORD M.D. Performed By: #### B MP #### [address] [address] [facility] Erythrocyte distribution wid th Auto (RBC) [Ratio]Ordered By: Everett Valdez on 02-17-2025 Erythrocyte distribution width (RBC) [Ratio] Erythrocyte distribution width [Ratio] by Automated count 11.9-15.3 [facility] Erythrocyte sedimentation ra te by Photometric methodOrdered By: Everett Valdez on 02-17-2025 ESR Photometric method (Bld) [Velocity] Erythrocyte sedimentation rate by Photometric method 0-29 [facility] Globulin Calc (S) [Mass/Vol] Ordered By: Everett Valdez on 02-17-2025 Globulin (S) [Mass/Vol] Serum globulin measurement by calculation (mass/volume) [facility] Glucose [Mass/volume] in Ser um or PlasmaOrdered By: Everett Valdez on 02-17-2025 Glucose [Mass/Vol] Glucose [Mass/volume ] in Serum or Plasma 70-100 [facility] Comment on above: ADA recommended refe rence rangeRandom Glucose Reference Range is dependent on time and content of last meal. Glucose of more than 200 mg/dL in a nonstressed, ambulatory subject supports the diagnosis of Diabetes Mellitus. Hematocrit Auto (Bld) [Volum e fraction]Ordered By: Everett Valdez on 02-17-2025 Hematocrit (Bld) [Volume fraction] Hematocrit [Volume Fraction] of Blood by Automated count 34.0-46.4 [facility] Hemoglobin [Mass/volume] in BloodOrdered By: Everett Valdez on 02-17-2025 Hemoglobin (Bld) [Mass/Vol] Hemoglobin [Mass/volume] in Blood 11.8-15.4 [facility] LDH Lactate Dehydrogenaseon 02-17-2025 LDH Lactate Dehydrogenase 219 U/L Normal 140-271 [facility] Comment on above: Performed By: #### B MP #### [address] Lactate dehydrogenase [Enzym atic activity/volume] in Serum or Plasma by Lactate to pyOrdered By: Everett Valdez on 02-17-2025 LDH Lactate to pyruvate reaction [Catalytic activity/Vol] Lactate dehydrogenase [Enzymatic activity/volume] in Serum or Plasma by Lactate to py 140-271 [facility] Leukocytes [#/volume] correc herbert for nucleated erythrocytes in Blood by Automated counOrdered By: Everett Valdez on 02-17-2025 WBC corrected for nucl RBC Auto (Bld) [#/Vol] Leukocytes [#/volume] corrected for nucleated erythrocytes in Blood by Automated coun 3.8-11.6 [facility] Lymphocytes Auto (Bld) [#/Vo l]Ordered By: Everett Valdez on 02-17-2025 Lymphocytes (Bld) [#/Vol] Lymphocytes [#/volume] in Blood by Automated count 1.00-4.8 [facility] Lymphocytes/100 WBC Auto (Bl d)Ordered By: Everett Valdez on 02-17-2025 Lymphocytes/100 WBC (Bld) Lymphocytes/100 leukocytes in Blood by Automated count . [facility] MCH Auto (RBC) [Entitic mass ]Ordered By: Everett Valdez on 02-17-2025 MCH (RBC) [Entitic mass] MCH [Entitic mass] by Automated count 24.7-34.3 [facility] MCHC Auto (RBC) [Mass/Vol]Or dered By: Everett Valdez on 02-17-2025 MCHC (RBC) [Mass/Vol] MCHC [Mass/volume] by Automated count 32.0-35.0 [facility] MCV Auto (RBC) [Entitic vol] Ordered By: Everett Valdez on 02-17-2025 MCV (RBC) [Entitic vol] MCV [Entitic volume] by Automated count 80-100 [facility] Monocytes Auto (Bld) [#/Vol] Ordered By: Everett Valdez on 02-17-2025 Monocytes (Bld) [#/Vol] Automated blood monocyte count 0.0-0.8 [facility] Monocytes/100 WBC Auto (Bld) Ordered By: Everett Valdez on 02-17-2025 Monocytes/100 WBC (Bld) Automated monocyte % . [facility] Myoglobinon 02-17-2025 Myoglobin [Mass/Vol] 187 ng/mL High 25-58 [facility] Comment on above: Result Comment: Perf ormed at: CB - [facility] [address] [id number] Retail Custodial Associate: Erick Neville PhD, Phone: [phone] PERFORMED BY: [place] [address] PATHOLOGIST BEAM DYER RECESSED VAT PAZ RUTHERFORD M.D. Performed By: #### E SR, TSH3, CK, ADDONUAPLUS, CBC, CRP, CMP, T4F #### [address] #### RPR W RFX, ALDOLASE, GUZMAN,URINE, UPE RAND #### [facility] , Neutrophils Auto (Bld) [#/Vo l]Ordered By: Everett Valdez on 02-17-2025 Neutrophils (Bld) [#/Vol] Neutrophils [#/volume] in Blood by Automated count 1.8-7.7 [facility] Neutrophils/100 WBC Auto (Bl d)Ordered By: Everett Valdez on 02-17-2025 Neutrophils/100 WBC (Bld) Automated neutrophil % . [facility] No Panel InformationOrdered By: Everett Valdez on 02-17-2025 Estimated GFR (CKD-EPI) > 60.0 mL/Min [facility] Pharmacy Creatinine Clearance (Chem N/A [facility] Nucleated erythrocytes [Pres ence] in Blood by Automated countOrdered By: Everett Valdez on 02-17-2025 Nucleated RBC Auto Ql (Bld) Nucleated erythrocytes [Presence] in Blood by Automated count 0-0.5 [facility] Platelet mean volume Auto (B ld) [Entitic vol]Ordered By: Everett Valdez on 02-17-2025 Platelet mean volume (Bld) [Entitic vol] Platelet mean volume [Entitic volume] in Blood by Automated count 6.3-10.7 [facility] Platelets Auto (Bld) [#/Vol] Ordered By: Everett Valdez on 02-17-2025 Platelets (Bld) [#/Vol] Platelets [#/volume] in Blood by Automated count 150-450 [facility] Potassium [Moles/volume] in Serum or PlasmaOrdered By: Everett Valdez on 02-17-2025 Potassium [Moles/Vol] Potassium [Moles/volume] in Serum or Plasma 3.5-5.1 [facility] Protein [Mass/volume] in Ser um or PlasmaOrdered By: Everett Valdez on 02-17-2025 Protein [Mass/Vol] Protein [Mass/volume ] in Serum or Plasma Low 6.4-8.9 [facility] RBC Auto (Bld) [#/Vol]Ordere d By: Everett Valdez on 04-14-2025 RBC (Bld) [#/Vol] Erythrocytes [#/volume] in Blood by Automated count 3.60-5.00 [facility] Serum aldolase measurementOr dered By: Everett Valdez on 02-17-2025 Aldolase 11.4 U/L High 3.3-10.3 [facility] Comment on above: Performed at: [facility] Office Center [address] [id number] Director: Erick Neville PhD, Phone: [phone] Result Comment: Perf ormed at: [facility] - [facility] [address] [id number] Retail Custodial Associate: Erick Neville PhD, Phone: [phone] PERFORMED BY: [place] [address] PATHOLOGIST BEAM DYER RECESSED VAT PAZ RUTHERFORD M.D. Performed By: #### E SR, TSH3, CK, ADDONUAPLUS, CBC, CRP, CMP, T4F #### [address] #### RPR W RFX, ALDOLASE, GUZMAN,URINE, UPE RAND #### [facility] , Serum or plasma albumin/glob ulin mass ratioOrdered By: Everett Valdez on 02-17-2025 Albumin/Globulin [Mass ratio] Serum or plasma albumin/globulin mass ratio [facility] Serum or plasma anion gap de terminationOrdered By: Everett Valdez on 02-17-2025 Anion gap [Moles/Vol] Serum or plasma an ion gap determination 6.0-15.0 [facility] Serum or plasma myoglobin me asurement (mass/volume)Ordered By: Everett Valdez on 02-17-2025 Myoglobin [Mass/Vol] Serum or plasma myoglobin measurement (mass/volume) High 25-58 [facility] Comment on above: Performed at: [email or web address] [address] [id number] Director: Erick Neville PhD, Phone: [phone] Sodium [Moles/volume] in Ser um or PlasmaOrdered By: Everett Courtney on 02-17-2025 Sodium [Moles/Vol] Sodium [Moles/volume ] in Serum or Plasma 136-145 [facility] Urea nitrogen [Mass/volume] in Serum or PlasmaOrdered By: Everett Valdez on 02-17-2025 Urea nitrogen [Mass/Vol] Urea nitrogen [Mass/volume] in Serum or Plasma 7-25 [facility] WBC Auto (Bld) [#/Vol]Ordere d By: Everett Courtney on 02-17-2025 WBC (Bld) [#/Vol] Leukocytes [#/volume ] in Blood by Automated count 3.8-11.6 [facility] 36on 01-24-2025 36 Attempted to call patient to reschedule canceled [facility] follow up appointment. [facility] XR FOOT RT MIN 3Von 01-03-[address] [place] [address] XRay Report Signed Patient: MARY LEAL MR#: [id number] : 1970 Acct:[id number] Age/Sex: 54 / F ADM Date: 01/03/25 Loc: EC Attending Dr: Sade Felix D.P.M. Ordering Physician: Sade Felix D.P.M. Date of Service: 01/03/25 Procedure(s): XR foot RT min 3V Accession Number(s): [id number] cc: Sade Felix D.P.M.; Isatu GÓMEZ [place] [address] Patient Name: MARY LEAL MRN: [id number] date: 1970 Sex: F Assigned Patient Location: EC Current Patient Location: EC Accession/Order Number: [id number] Exam Date: 01/03/2025 12:17 Report Date: 01/03/2025 [...] Makenna Pathak M.D.01/03/2025 12:21 PM Dictation Location: [place] [address] Electronically authenticated by: [id number] Y Date: 01/03/2025 12:21 Dictated By: Makenna Pathak M.D. Signed By: 01/03/25 1223 DD/ 1221 TD/TT: Biscuit Packer: [facility] Radiology, Radiologist, - 01/03/2025 [place] [address] XRay Report Signed Patient: MARY LEAL MR#: [id number] : 1970 Acct:[id number] Age/Sex: 54 / F ADM Date: 01/03/25 Loc: Attending Dr: Sade Felix D.P.M. Ordering Physician: Sade Felix D.P.M. Date of Service: 01/03/25 Procedure(s): XR foot RT min 3V Accession Number(s): [id number] cc: Sade Felix D.P.M.; Isatu GÓMEZ [place] [id number] Patient Name: MARY LEAL MRN: [facility]:[id number] date: 1970 Sex: F Assigned Patient Location: Current Patient Location: Accession/Order Number: [id number] Exam Date: 01/03/2025 12:17 Report Date: 01/03/2025 [...] Makenna Pathak M.D.01/03/2025 12:21 PM Dictation Location: [place] [address] Electronically authenticated by: [id number] Y Date: 01/03/2025 12:21 Dictated By: Makenna Pathak M.D. Signed By: 01/03/25 1223 DD/ 1221 TD/TT: Biscuit Packer: [facility] Radiology Study observation (narrative) [facility] XR FOOT RT MIN 3VOrdered By: Radiologist Radiology on 01-03-2025 [facility] [employer] Work Phone: 24 hour urine albumin/total protein ratio by electrophoresisOrdered By: Everett Valdez on 12-16-2024 Albumin Elph (24H U) [Mass fraction] Albumin/Protein.total in 24 hour Urine by Electrophoresis . [facility] 24 hour urine gamma globulin /total protein ratio by electrophoresisOrdered By: Everett Valdez on 12-16-2024 Gamma globulin Elph (24H U) [Mass fraction] Gamma globulin/Protein.total in 24 hour Urine by Electrophoresis . [facility] 24 hour urine protein monocl onal/total protein by electrophoresisOrdered By: Everett Valdez on 12-16-2024 Protein.monoclonal Elph (24H U) [Mass fraction] Protein.monoclonal/Pro tein.total in 24 hour Urine by Electrophoresis Not Observed [facility] CHUYITA Antinuclear Antibodieson 12-16-2024 Antinuclear Abs, IFA Negative Normal . [facility] Comment on above: Result Comment: Nega tive <1:80 Borderline 1:80 Positive >1:80 ICAP nomenclature: AC-0 For more information about Hep-2 cell patterns use ANApatterns.org, the official website for the International Consensus on Antinuclear Antibody (CHUYITA) Patterns (ICAP). Performed at: [address] [id number] Retail Custodial Associate: Erick Neville PhD, Phone: [phone] Performed By: #### P P #### [address] #### LUPANTCOAG #### [facility] , Alanine aminotransferase [En zymatic activity/volume] in Serum or PlasmaOrdered By: Everett Valdez on 12-16-2024 ALT [Catalytic activity/Vol] Alanine aminotransferase [Enzymatic activity/volume] in Serum or Plasma 752 [facility] Albumin [Mass/volume] in Ser um or Plasma by Bromocresol green (BCG) dye binding methoOrdered By: Everett Valdez on 12-16-2024 Albumin BCG dye [Mass/Vol] Albumin [Mass/volume] in Serum or Plasma by Bromocresol green (BCG) dye binding metho 3.5-5.7 [facility] Alkaline phosphatase [Enzyma tic activity/volume] in Serum or PlasmaOrdered By: Everett Valdez on 12-16-2024 ALP [Catalytic activity/Vol] Alkaline phosphatase [Enzymatic activity/volume] in Serum or Plasma 34-104 [facility] Antithyroglobulin Abon 12-16 Antithyroglobulin Ab <1.0 Normal 0.0-0.9 [facility] Comment on above: Result Comment: Thyr oglobulin Antibody measured by [employer] It should be noted that the presence of thyroglobulin antibodies may not be pathogenic nor diagnostic, especially at very low levels. The assay commercial electrician has found that four percent of individuals without evidence of thyroid disease or autoimmunity will have positive TgAb levels up to 4 IU/mL. Performed at: [facility] [address] [id number] Retail Custodial Associate: Erick Neville PhD, Phone: [phone] Performed By: #### C BC #### [address] Appearance of UrineOrdered B y: Everett Valdez on 02-10-2025 Appearance (U) Urine appearance Clear [facility] Aspartate aminotransferase [ Enzymatic activity/volume] in Serum or PlasmaOrdered By: Everett Valdez on 12-16-2024 AST [Catalytic activity/Vol] Aspartate aminotransferase [Enzymatic activity/volume] in Serum or Plasma 13-39 [facility] Bacteria [Presence] in Urine by AutomatedOrdered By: Everett Valdez on 12-16-2024 Bacteria Auto Ql (U) Bacteria [Presence] in Urine by Automated None Seen [facility] Basophils Auto (Bld) [#/Vol] Ordered By: Everett Valdez on 12-16-2024 Basophils (Bld) [#/Vol] Automated basophil count 0.0-0.2 [facility] Basophils/100 WBC Auto (Bld) Ordered By: Everett Valdez on 12-16-2024 Basophils/100 WBC (Bld) Automated basophil % . [facility] Bilirubin Test strip Ql (U)O rdered By: Everett Valdez on 12-16-2024 Bilirubin Ql (U) Bilirubin.total [Presence] in Urine by Test strip Negative [facility] Bilirubin.total [Mass/volume ] in Serum or PlasmaOrdered By: Everett Valdez on 12-16-2024 Bilirubin [Mass/Vol] Bilirubin.total [Mass/volume] in Serum or Plasma 0.3-1.0 [facility] C reactive protein [Mass/vol ume] in Serum or PlasmaOrdered By: Everett Valdez on 12-16-2024 CRP [Mass/Vol] C reactive protein [Mass/volume] in Serum or Plasma 0.0-0.5 [facility] C-Reactive Proteinon 025 CRP [Mass/Vol] mg/L Normal 0.0-0.5 [facility] Comment on above: Performed By: #### E SR, TSH3, CK, ADDONUAPLUS, CBC, CRP, CMP, T4F #### [facility] [address] [place] [address] #### RPR W RFX, ALDOLASE, GUZMAN,URINE, UPE RAND #### [facility] , Calcium [Mass/volume] in Ser um or PlasmaOrdered By: Everett Valdez on 12-16-2024 Calcium [Mass/Vol] Calcium [Mass/volume ] in Serum or Plasma 8.6-10.3 [facility] Carbon dioxide, total [Moles /volume] in Serum or PlasmaOrdered By: Everett Valdez on 12-16-2024 CO2 [Moles/Vol] Carbon dioxide, tota l [Moles/volume] in Serum or Plasma 21.0-31.0 [facility] Chloride [Moles/volume] in S jay or PlasmaOrdered By: Everett Valdez on 12-16-2024 Chloride [Moles/Vol] Chloride [Moles/volume] in Serum or Plasma 98-107 [facility] Chromatin Antibodyon 025 Chromatin Antibody <0.2 Normal 0.0-0.9 [facility] Comment on above: Result Comment: Perf ormed at: - [facility] [address] [id number] Retail Custodial Associate: Erick Neville PhD, Phone: [phone] PERFORMED BY: [place] [address] PATHOLOGIST BEAM DYER RECESSED VAT PAZ RUTHERFORD M.D. Performed By: #### C BC #### [address] Coagulation Profileon 2024 aPTT Coag (Bld) [Time] 28.7 s Normal 25.1-36.5 [facility] Comment on above: Result Comment: A he matocrit value greater than 55% may lead to inaccurate results in coagulation testing. Patients having hematocrit values >55% require a special collection tube for coagulation studies. Please contact the laboratory at [phone] for redraw instructions. PERFORMED BY: [place] [address] PATHOLOGIST BEAM DYER RECESSED VAT PAZ RUTHERFORD M.D. Performed By: #### P P #### [facility] [address] [place] [address] #### LUPANTCOAG #### [facility] , INR Coag (PPP) [Relative time] 0.9 {INR} Normal [facility] Comment on above: Result [...] valves: 3 - 4.5 Performed By: #### P P #### [place] [address] [place] #### LUPANTCOAG #### [facility] , PT Coag (PPP) [Time] 10.5 s Normal 9.0-12.9 [facility] Comment on above: Result Comment: A he matocrit value greater than 55% may lead to inaccurate results in coagulation testing. Patients having hematocrit values >55% require a special collection tube for coagulation studies. Please contact the laboratory at [phone] for redraw instructions. Performed By: #### P P #### [place] [address] [place] #### LUPANTCOAG #### [facility] , Color Auto (U)Ordered By: Dori Valdez on 12-16-2024 Color (U) Color of Urine by Auto Yellow [facility] Complement C3on 12-16-2024 Complement C3 133 mg/dL Normal 82-167 [facility] Comment on above: Result Comment: Perf ormed at: CB - [facility] [address] [id number] Retail Custodial Associate: Erick Neville PhD, Phone: [phone] Performed By: #### C BC #### [address] Complement C4on 12-16-2024 Complement C4 26 mg/dL Normal 12-38 [facility] Comment on above: Performed By: #### C BC #### [address] Complement Total (CH50)on Complement Total (CH50) >60 Normal >41 [facility] Comment on above: Result [...] determine out of range values. Performed at: - [facility] [address] [id number] Retail Custodial Associate: Erick Neville PhD, Phone: [phone] PERFORMED BY: [place] [address] PATHOLOGIST BEAM DYER RECESSED VAT PAZ RUTHERFORD M.D. Performed By: #### P P #### [address] #### LUPANTCOAG #### [facility] , Complete Blood Count Auto Di ffon 12-16-2024 Basophils (Bld) [#/Vol] 0.0 10*3/uL Normal 0.0-0.2 [facility] Comment on above: Performed By: #### P P #### [place] [address] [place] #### LUPANTCOAG #### [facility] , Basophils/100 WBC (Bld) 0.7 % Normal . [facility] Comment on above: Performed By: #### P P #### [place] [address] [place] #### LUPANTCOAG #### [facility] , Eosinophils (Bld) [#/Vol] 0.1 10*3/uL Normal 0.0-0.45 [facility] Comment on above: Performed By: #### P P #### [place] [address] [place] #### LUPANTCOAG #### [facility] , Eosinophils/100 WBC (Bld) 2.3 % Normal . [facility] Comment on above: Performed By: #### P P #### [place] [address] [place] #### LUPANTCOAG #### [facility] , Erythrocyte distribution width (RBC) [Ratio] 12.8 % Normal 11.9-15.3 [facility] Comment on above: Performed By: #### P P #### [place] [address] [place] #### LUPANTCOAG #### [facility] , Hematocrit (Bld) [Volume fraction] 39.6 % Normal 34.0-46.4 [facility] Comment on above: Performed By: #### P P #### [place] [address] [place] #### LUPANTCOAG #### [facility] , Hemoglobin (Bld) [Mass/Vol] 13.3 g/dL Normal 11.8-15.4 [facility] Comment on above: Performed By: #### P P #### [place] [address] [place] #### LUPANTCOAG #### [facility] , Lymphocytes (Bld) [#/Vol] 1.8 10*3/uL Normal 1.00-4.8 [facility] Comment on above: Performed By: #### P P #### [place] [address] [place] #### LUPANTCOAG #### [facility] , Lymphocytes/100 WBC (Bld) 32.0 % Normal . [facility] Comment on above: Performed By: #### P P #### [place] [address] [place] #### LUPANTCOAG #### [facility] , MCH (RBC) [Entitic mass] 28.4 pg Normal 24.7-34.3 [facility] Comment on above: Performed By: #### P P #### [place] [address] [place] #### LUPANTCOAG #### [facility] , MCV (RBC) [Entitic vol] 84.6 fL Normal 80-100 [facility] Comment on above: Performed By: #### P P #### [address] #### LUPANTCOAG #### [facility] , Mean Corpuscular HGB Conc 33.6 g/dL Normal 32.0-35.0 [facility] Comment on above: Performed By: #### P P #### [place] [address] [place] #### LUPANTCOAG #### [facility] , Monocytes (Bld) [#/Vol] 0.3 10*3/uL Normal 0.0-0.8 [facility] Comment on above: Performed By: #### P P #### [address] #### LUPANTCOAG #### [facility] , Monocytes/100 WBC (Bld) 5.1 % Normal . [facility] Comment on above: Performed By: #### P P #### [place] [address] [place] #### LUPANTCOAG #### [facility] , Neutrophils (Bld) [#/Vol] 3.3 10*3/uL Normal 1.8-7.7 [facility] Comment on above: Performed By: #### P P #### [place] [address] [place] #### LUPANTCOAG #### [facility] , Neutrophils/100 WBC (Bld) 59.9 % Normal . [facility] Comment on above: Performed By: #### P P #### [facility] [address] [place] [address] [place] #### LUPANTCOAG #### [facility] , NRBC% 0.1 /100{WBC} Normal 0-0.5 [facility] Comment on above: Performed By: #### P P #### [facility] [address] [place] [address] [place] #### LUPANTCOAG #### [facility] , Platelet mean volume (Bld) [Entitic vol] 7.5 fL Normal 6.3-10.7 [facility] Comment on above: Performed By: #### P P #### [address] #### LUPANTCOAG #### [facility] , Platelets (Bld) [#/Vol] 347 10*3/uL Normal 150-450 [facility] Comment on above: Performed By: #### P P #### [facility] [address] [place] [address] [place] #### LUPANTCOAG #### [facility] , RBC (Bld) [#/Vol] 4.68 10*6/uL Normal 3.60-5.00 [facility] Comment on above: Performed By: #### P P #### [place] [address] [place] #### LUPANTCOAG #### [facility] , WBC (Bld) [#/Vol] 5.6 10*3/uL Normal 3.8-11.6 [facility] Comment on above: Performed By: #### P P #### [facility] [address] [place] [address] [place] #### LUPANTCOAG #### [facility] , Comprehensive Metabolic Pane boyd 12-16-2024 Albumin [Mass/Vol] 4.1 g/dL Normal 3.5-5.7 [facility] Comment on above: Performed By: #### E SR, TSH3, CK, ADDONUAPLUS, CBC, CRP, CMP, T4F #### [address] #### RPR W RFX, ALDOLASE, GUZMAN,URINE, UPE RAND #### [facility] , Albumin/Globulin [Mass ratio] 1.9 {ratio} Normal [facility] Comment on above: Performed By: #### E SR, TSH3, CK, ADDONUAPLUS, CBC, CRP, CMP, T4F #### [address] #### RPR W RFX, ALDOLASE, GUZMAN,URINE, UPE RAND #### [facility] , ALP [Catalytic activity/Vol] 84 U/L Normal 34-104 [facility] Comment on above: Performed By: #### E SR, TSH3, CK, ADDONUAPLUS, CBC, CRP, CMP, T4F #### [address] #### RPR W RFX, ALDOLASE, GUZMAN,URINE, UPE RAND #### [facility] , ALT [Catalytic activity/Vol] 31 U/L Normal 7-52 [facility] Comment on above: Performed By: #### E SR, TSH3, CK, ADDONUAPLUS, CBC, CRP, CMP, T4F #### [address] #### RPR W RFX, ALDOLASE, GUZMAN,URINE, UPE RAND #### [facility] , Anion gap [Moles/Vol] 8.2 mmol/L Normal 6.0-15.0 [facility] Comment on above: Performed By: #### E SR, TSH3, CK, ADDONUAPLUS, CBC, CRP, CMP, T4F #### [address] #### RPR W RFX, ALDOLASE, GUZMAN,URINE, UPE RAND #### [facility] , AST [Catalytic activity/Vol] 31 U/L Normal 13-39 [facility] Comment on above: Performed By: #### E SR, TSH3, CK, ADDONUAPLUS, CBC, CRP, CMP, T4F #### [address] #### RPR W RFX, ALDOLASE, GUZMAN,URINE, UPE RAND #### [facility] , Bilirubin [Mass/Vol] 0.3 mg/dL Normal 0.3-1.0 [facility] Comment on above: Performed By: #### E SR, TSH3, CK, ADDONUAPLUS, CBC, CRP, CMP, T4F #### [address] #### RPR W RFX, ALDOLASE, GUZMAN,URINE, UPE RAND #### [facility] , Calcium [Mass/Vol] 9.3 mg/dL Normal 8.6-10.3 [facility] Comment on above: Performed By: #### E SR, TSH3, CK, ADDONUAPLUS, CBC, CRP, CMP, T4F #### [address] #### RPR W RFX, ALDOLASE, GUZMAN,URINE, UPE RAND #### [facility] , Chloride [Moles/Vol] 107 mmol/L Normal 98-107 [facility] Comment on above: Performed By: #### E SR, TSH3, CK, ADDONUAPLUS, CBC, CRP, CMP, T4F #### [address] #### RPR W RFX, ALDOLASE, GUZMAN,URINE, UPE RAND #### [facility] , CO2 [Moles/Vol] 30.0 mmol/L Normal 21.0-31.0 [facility] Comment on above: Performed By: #### E SR, TSH3, CK, ADDONUAPLUS, CBC, CRP, CMP, T4F #### [address] #### RPR W RFX, ALDOLASE, GUZMAN,URINE, UPE RAND #### [facility] , Creatinine [Mass/Vol] 0.70 mg/dL Normal 0.60-1.20 [facility] Comment on above: Performed By: #### E SR, TSH3, CK, ADDONUAPLUS, CBC, CRP, CMP, T4F #### [address] #### RPR W RFX, ALDOLASE, GUZMAN,URINE, UPE RAND #### [facility] , GFR/1.73 sq M.predicted MDRD (S/P/Bld) [Vol rate/Area] mL/min/{1.73_m2} Normal [facility] Comment on above: Performed By: #### E SR, TSH3, CK, ADDONUAPLUS, CBC, CRP, CMP, T4F #### [address] #### RPR W RFX, ALDOLASE, GUZMAN,URINE, UPE RAND #### [facility] , Globulin (S) [Mass/Vol] 2.2 g/dL Normal [facility] Comment on above: Performed By: #### E SR, TSH3, CK, ADDONUAPLUS, CBC, CRP, CMP, T4F #### [place] [address] [place] #### RPR W RFX, ALDOLASE, GUZMAN,URINE, UPE RAND #### [facility] , Glucose [Mass/Vol] 85 mg/dL Normal 70-100 [facility] Comment on above: Result Comment: [place] Glucose Reference Range is dependent on time and content of last meal. Glucose of more than 200 mg/dL in a nonstressed, ambulatory subject supports the diagnosis of Diabetes Mellitus. ADA recommended reference range Performed By: #### E SR, TSH3, CK, ADDONUAPLUS, CBC, CRP, CMP, T4F #### [address] #### RPR W RFX, ALDOLASE, GUZMAN,URINE, UPE RAND #### [facility] , Potassium [Moles/Vol] 4.2 mmol/L Normal 3.5-5.1 [facility] Comment on above: Performed By: #### E SR, TSH3, CK, ADDONUAPLUS, CBC, CRP, CMP, T4F #### [address] #### RPR W RFX, ALDOLASE, GUZMAN,URINE, UPE RAND #### [facility] , Protein [Mass/Vol] 6.3 g/dL Low 6.4-8.9 [facility] Comment on above: Performed By: #### E SR, TSH3, CK, ADDONUAPLUS, CBC, CRP, CMP, T4F #### [address] #### RPR W RFX, ALDOLASE, GUZMAN,URINE, UPE RAND #### [facility] , Sodium [Moles/Vol] 141 mmol/L Normal 136-145 [facility] Comment on above: Performed By: #### E SR, TSH3, CK, ADDONUAPLUS, CBC, CRP, CMP, T4F #### [place] [address] [place] #### RPR W RFX, ALDOLASE, GUZMAN,URINE, UPE RAND #### [facility] , Urea nitrogen [Mass/Vol] 11 mg/dL Normal 7-25 [facility] Comment on above: Performed By: #### E SR, TSH3, CK, ADDONUAPLUS, CBC, CRP, CMP, T4F #### [facility] [address] [place] [address] #### RPR W RFX, ALDOLASE, GUZMAN,URINE, UPE RAND #### [facility] , Creatine Kinaseon 12-16-2024 CK [Catalytic activity/Vol] 487 U/L High 30-223 [facility] Comment on above: Result Comment: PERF ORMED BY: [place] [address] PATHOLOGIST BEAM DYER RECESSED VAT PAZ RUTHERFORD M.D. Performed By: #### E SR, TSH3, CK, ADDONUAPLUS, CBC, CRP, CMP, T4F #### [address] #### RPR W RFX, ALDOLASE, GUZMAN,URINE, UPE RAND #### [facility] , Creatine kinase [Enzymatic a ctivity/volume] in Serum or PlasmaOrdered By: Everett Valdez on 12-16-2024 CK [Catalytic activity/Vol] Creatine kinase [Enzymatic activity/volume] in Serum or Plasma High 30-223 [facility] Creatinine [Mass/volume] in Serum or PlasmaOrdered By: Everett Valdez on 12-16-2024 Creatinine [Mass/Vol] Creatinine [Mass/volume] in Serum or Plasma 0.60-1.20 [facility] Dipstick and Microscopicon 0 12-16-2024 Appearance (U) Clear Normal Clear [facility] Comment on above: Order Comment: Name Collection Type:: Clean-Voided Midstream Performed By: #### E SR, TSH3, CK, ADDONUAPLUS, CBC, CRP, CMP, T4F #### [place] [address] [place] #### RPR W RFX, ALDOLASE, GUZMAN,URINE, UPE RAND #### [facility] , Bacteria,Urine Rare Normal None Seen [facility] Comment on above: Order Comment: Name Collection Type:: Clean-Voided Midstream Performed By: #### E SR, TSH3, CK, ADDONUAPLUS, CBC, CRP, CMP, T4F #### [address] #### RPR W RFX, ALDOLASE, GUZMAN,URINE, UPE RAND #### [facility] , Bilirubin,Urine Negative Normal Negative [facility] Comment on above: Order Comment: Name Collection Type:: Clean-Voided Midstream Performed By: #### E SR, TSH3, CK, ADDONUAPLUS, CBC, CRP, CMP, T4F #### [address] #### RPR W RFX, ALDOLASE, GUZMAN,URINE, UPE RAND #### [facility] , Color (U) Yellow Normal Yellow [facility] Comment on above: Order Comment: Name Collection Type:: Clean-Voided Midstream Performed By: #### E SR, TSH3, CK, ADDONUAPLUS, CBC, CRP, CMP, T4F #### [address] #### RPR W RFX, ALDOLASE, GUZMAN,URINE, UPE RAND #### [facility] , Glucose Ql (U) Normal Normal Normal [facility] Comment on above: Order Comment: Name Collection Type:: Clean-Voided Midstream Performed By: #### E SR, TSH3, CK, ADDONUAPLUS, CBC, CRP, CMP, T4F #### [address] #### RPR W RFX, ALDOLASE, GUZMAN,URINE, UPE RAND #### [facility] , Hyaline Casts,Urine 0-8 Normal 0-8 [facility] Comment on above: Order Comment: Name Collection Type:: Clean-Voided Midstream Performed By: #### E SR, TSH3, CK, ADDONUAPLUS, CBC, CRP, CMP, T4F #### [address] #### RPR W RFX, ALDOLASE, GUZMAN,URINE, UPE RAND #### [facility] , Ketones Ql (U) Negative Normal Negative [facility] Comment on above: Order Comment: Name Collection Type:: Clean-Voided Midstream Performed By: #### E SR, TSH3, CK, ADDONUAPLUS, CBC, CRP, CMP, T4F #### [address] #### RPR W RFX, ALDOLASE, GUZMAN,URINE, UPE RAND #### [facility] , Leukocyte esterase Test strip Ql (U) Negative Normal Negative [facility] Comment on above: Order Comment: Name Collection Type:: Clean-Voided Midstream Performed By: #### E SR, TSH3, CK, ADDONUAPLUS, CBC, CRP, CMP, T4F #### [address] #### RPR W RFX, ALDOLASE, GUZMAN,URINE, UPE RAND #### [facility] , Mucus,Urine 1+ Critically abnormal [facility] Comment on above: Order Comment: Name Collection Type:: Clean-Voided Midstream Result Comment: PERF ORMED BY: [place] [address] PATHOLOGIST BEAM DYER RECESSED VAT PAZ RUTHERFORD M.D. Performed By: #### E SR, TSH3, CK, ADDONUAPLUS, CBC, CRP, CMP, T4F #### [address] #### RPR W RFX, ALDOLASE, GUZMAN,URINE, UPE RAND #### [facility] , Nitrite,Urine Negative Normal Negative [facility] Comment on above: Order Comment: Name Collection Type:: Clean-Voided Midstream Performed By: #### E SR, TSH3, CK, ADDONUAPLUS, CBC, CRP, CMP, T4F #### [address] #### RPR W RFX, ALDOLASE, GUZMAN,URINE, UPE RAND #### [facility] , Occult Blood,Urine Negative Normal Negative [facility] Comment on above: Order Comment: Name Collection Type:: Clean-Voided Midstream Performed By: #### E SR, TSH3, CK, ADDONUAPLUS, CBC, CRP, CMP, T4F #### [address] #### RPR W RFX, ALDOLASE, GUZMAN,URINE, UPE RAND #### [facility] , pH (U) 5.0 [pH] Normal 5.0-9.0 [facility] Comment on above: Order Comment: Name Collection Type:: Clean-Voided Midstream Performed By: #### E SR, TSH3, CK, ADDONUAPLUS, CBC, CRP, CMP, T4F #### [address] #### RPR W RFX, ALDOLASE, GUZMAN,URINE, UPE RAND #### [facility] , Protein,Urine Negative Normal Negative [facility] Comment on above: Order Comment: Name Collection Type:: Clean-Voided Midstream Performed By: #### E SR, TSH3, CK, ADDONUAPLUS, CBC, CRP, CMP, T4F #### [address] #### RPR W RFX, ALDOLASE, GUZMAN,URINE, UPE RAND #### [facility] , RBC,Urine 1-2 Normal 0-4 [facility] Comment on above: Order Comment: Name Collection Type:: Clean-Voided Midstream Performed By: #### E SR, TSH3, CK, ADDONUAPLUS, CBC, CRP, CMP, T4F #### [place] [address] [place] #### RPR W RFX, ALDOLASE, GUZMAN,URINE, UPE RAND #### [facility] , Specificy [place],Urine 1.024 Normal 1.001-1.030 [facility] Comment on above: Order Comment: Name Collection Type:: Clean-Voided Midstream Performed By: #### E SR, TSH3, CK, ADDONUAPLUS, CBC, CRP, CMP, T4F #### [address] #### RPR W RFX, ALDOLASE, GUZMAN,URINE, UPE RAND #### [facility] , Squamous Epithelial Cell,Urine 5-9 High 0-2 [facility] Comment on above: Order Comment: Name Collection Type:: Clean-Voided Midstream Performed By: #### E SR, TSH3, CK, ADDONUAPLUS, CBC, CRP, CMP, T4F #### [address] #### RPR W RFX, ALDOLASE, GUZMAN,URINE, UPE RAND #### [facility] , Urobilinogen,Urine Normal Normal Normal [facility] Comment on above: Order Comment: Name Collection Type:: Clean-Voided Midstream Performed By: #### E SR, TSH3, CK, ADDONUAPLUS, CBC, CRP, CMP, T4F #### [address] #### RPR W RFX, ALDOLASE, GUZMAN,URINE, UPE RAND #### [facility] , WBC,Urine 1-2 Normal 0-4 [facility] Comment on above: Order Comment: Name Collection Type:: Clean-Voided Midstream Performed By: #### E SR, TSH3, CK, ADDONUAPLUS, CBC, CRP, CMP, T4F #### [address] #### RPR W RFX, ALDOLASE, GUZMAN,URINE, UPE RAND #### [facility] , Eosinophils Auto (Bld) [#/Vo l]Ordered By: Everett Valdez on 12-16-2024 Eosinophils (Bld) [#/Vol] Automated eosinophil count 0.0-0.45 [facility] Eosinophils/100 WBC Auto (Bl d)Ordered By: Everett Valdez on 12-16-2024 Eosinophils/100 WBC (Bld) Automated eosinophil % . [facility] Epithelial cells.squamous [# /area] in Urine sediment by Automated countOrdered By: Everett Valdez on 12-16-2024 Epithelial cells.squamous Auto (Urine sed) [#/Area] Epithelial cells.squamous [#/area] in Urine sediment by Automated count High 0-2 [facility] Erythrocyte Sedimentation Ra lian 12-16-2024 ESR (Bld) [Velocity] 6 mm/h Normal 0-29 [facility] Comment on above: Result Comment: PERF ORMED BY: [place] [address] PATHOLOGIST BEAM DYER RECESSED VAT PAZ RUTHERFORD M.D. Performed By: #### P P #### [address] #### LUPANTCOAG #### [facility] , Erythrocyte distribution wid th Auto (RBC) [Ratio]Ordered By: Everett Valdez on 12-16-2024 Erythrocyte distribution width (RBC) [Ratio] Erythrocyte distribution width [Ratio] by Automated count 11.9-15.3 [facility] Erythrocyte sedimentation ra te by Photometric methodOrdered By: Everett Valdez on 12-16-2024 ESR Photometric method (Bld) [Velocity] Erythrocyte sedimentation rate by Photometric method 0-29 [facility] Erythrocytes [#/area] in Uri ne sediment by Automated countOrdered By: Everett Valdez on 12-16-2024 RBC Auto (Urine sed) [#/Area] Erythrocytes [#/area] in Urine sediment by Automated count 0-4 [facility] Free T4 (Free Thyroxine)on 0 - Free T4 [Mass/Vol] 0.77 ng/dL Normal 0.61-1.12 [facility] Comment on above: Performed By: #### E SR, TSH3, CK, ADDONUAPLUS, CBC, CRP, CMP, T4F #### [facility] [address] #### RPR W RFX, ALDOLASE, GUZMAN,URINE, UPE RAND #### [facility] , Globulin Calc (S) [Mass/Vol] Ordered By: Everett Valdez on 12-16-2024 Globulin (S) [Mass/Vol] Serum globulin measurement by calculation (mass/volume) [facility] Glucose [Mass/volume] in Ser um or PlasmaOrdered By: Everett Valdez on 12-16-2024 Glucose [Mass/Vol] Glucose [Mass/volume ] in Serum or Plasma 70-100 [facility] Comment on above: ADA recommended refe rence rangeRandom Glucose Reference Range is dependent on time and content of last meal. Glucose of more than 200 mg/dL in a nonstressed, ambulatory subject supports the diagnosis of Diabetes Mellitus. Glucose [Mass/volume] in Uri ne by Test stripOrdered By: Everett Valdez on 12-16-2024 Glucose Test strip (U) [Mass/Vol] Glucose [Mass/volume] in Urine by Test strip Normal [facility] Hematocrit Auto (Bld) [Volum e fraction]Ordered By: Everett Valdez on 12-16-2024 Hematocrit (Bld) [Volume fraction] Hematocrit [Volume Fraction] of Blood by Automated count 34.0-46.4 [facility] Hemoglobin Test strip Ql (U) Ordered By: Everett Valdez on 12-16-2024 Hemoglobin Ql (U) Hemoglobin [Presence ] in Urine by Test strip Negative [facility] Hemoglobin [Mass/volume] in BloodOrdered By: Everett Valdez on 12-16-2024 Hemoglobin (Bld) [Mass/Vol] Hemoglobin [Mass/volume] in Blood 11.8-15.4 [facility] Hyaline casts [#/area] in Ur ine sediment by Automated countOrdered By: Everett Valdez 12-16-2024 Hyaline casts Auto (Urine sed) [#/Area] Hyaline casts [#/area] in Urine sediment by Automated count 0-8 [facility] INR in Platelet poor plasma by Coagulation assayOrdered By: Everett Valdez on 12-16-2024 INR Coag (PPP) [Relative time] INR in Platelet poor plasma by Coagulation assay [facility] Comment on above: INR Therapeutic Rang e A) Pre- and Peroperative OAT started two weeks before surgery. NOT HIP SURGERY: 1.5 - 2.5 HIP SURGERY: 2 - 3B) Primary and secondary prevention of venous THROMBOSIS: 2 - 3C) Active venous thrombosis, pulmonary embolismand prevention of recurrent venous thrombosis: 2 - 3D) Prevention of arterial thromboembolismincluding patients with mechanical heart valves: 3 - 4.5 Immunofixation for UrineOrde red By: Everett Valdez on 12-16-2024 Interpretation Immunofixation (U) [Interp] Immunofixation for Urine . [facility] Comment on above: No monoclonality det ected.Performed at: [facility] [place] [id number] Director: Erick Neville PhD, Phone: [phone] Immunofixation, (GUZMAN), Urine on 12-16-2024 Immunofixation, (GUZMAN), Urine Comment Normal . [facility] Comment on above: Result Comment: No m onoclonality detected. Performed at: [facility] [place] [id number] Retail Custodial Associate: Erick Neville PhD, Phone: [phone] Performed By: #### P P #### [place] [address] [place] #### LUPANTCOAG #### [facility] , Immunofixation,Serumon 12-16 Immunofixation, Serum Comment Normal . [facility] Comment on above: Result Comment: No m onoclonality detected. Performed By: #### P P #### [place] [address] [place] #### LUPANTCOAG #### [facility] , Immunoglobulin A, Serum 216 mg/dL Normal 87-352 [facility] Comment on above: Performed By: #### P P #### [facility] [address] [place] [address] [place] #### LUPANTCOAG #### [facility] , Immunoglobulin G 802 mg/dL Normal [phone] [facility] Comment on above: Performed By: #### P P #### [facility] [address] [place] [address] [place] #### LUPANTCOAG #### [facility] , Immunoglobulin M, Serum 78 mg/dL Normal 26-217 [facility] Comment on above: Result Comment: Perf ormed at: - [facility] [address] [id number] Retail Custodial Associate: Erick Neville PhD, Phone: [phone] Performed By: #### P P #### [facility] [address] [place] [address] [place] #### LUPANTCOAG #### [facility] , Ketones Test strip Ql (U)Ord ered By: Everett Valdez on 12-16-2024 Ketones Ql (U) Ketones [Presence] i n Urine by Test strip Negative [facility] Leukocyte esterase [Presence ] in Urine by Test stripOrdered By: Everett Valdez on 12-16-2024 Leukocyte esterase Test strip Ql (U) Leukocyte esterase [Presence] in Urine by Test strip Negative [facility] Leukocytes [#/area] in Urine sediment by Automated countOrdered By: Everett Valdez on 12-16-2024 WBC Auto (Urine sed) [#/Area] Leukocytes [#/area] in Urine sediment by Automated count 0-4 [facility] Leukocytes [#/volume] correc herbert for nucleated erythrocytes in Blood by Automated counOrdered By: Everett Valdez on 12-16-2024 WBC corrected for nucl RBC Auto (Bld) [#/Vol] Leukocytes [#/volume] corrected for nucleated erythrocytes in Blood by Automated coun 3.8-11.6 [facility] Lupus Anticoagulant Compon 0 12-16-2024 Dilute Prothrombin Time (dPt) 30.8 Normal 0.0-47.6 [facility] Comment on above: Performed By: #### P P #### [address] #### LUPANTCOAG #### [facility] , dPT Confirm Ratio 1.06 Normal 0.00-1.34 [facility] Comment on above: Performed By: #### P P #### [address] #### LUPANTCOAG #### [facility] , DRVVT Lupus 37.0 Normal 0.0-47.0 [facility] Comment on above: Performed By: #### P P #### [address] #### LUPANTCOAG #### [facility] , Interpretation Comment: Normal . [facility] Comment on above: Result Comment: No l upus anticoagulant was detected. Performed at: [facility] [address] [id number] Retail Custodial Associate: Jim Gong MD, Phone: [phone] PERFORMED BY: [place] [address] PATHOLOGIST BEAM DYER RECESSED VAT PAZ RUTHERFORD M.D. Performed By: #### P P #### [address] #### LUPANTCOAG #### [facility] , PTT-LA 26.8 Normal 0.0-43.5 [facility] Comment on above: Performed By: #### P P #### [address] #### LUPANTCOAG #### [facility] , Thrombin Time 19.0 Normal 0.0-23.0 [facility] Comment on above: Performed By: #### P P #### [facility] [address] #### LUPANTCOAG #### [facility] , Lupus anticoagulant [Interpr etation] in Platelet poor plasmaOrdered By: Everett Valdez on 12-16-2024 Lupus anticoagulant (PPP) [Interp] Lupus anticoagulant [Interpretation] in Platelet poor plasma . [facility] Comment on above: No lupus anticoagula nt was detected.Performed at: - [address] [id number] Director: Jim Gong MD, Phone: [phone] Lymphocytes Auto (Bld) [#/Vo l]Ordered By: Everett Valdez on 12-16-2024 Lymphocytes (Bld) [#/Vol] Lymphocytes [#/volume] in Blood by Automated count 1.00-4.8 [facility] Lymphocytes/100 WBC Auto (Bl d)Ordered By: Everett Valdez on 12-16-2024 Lymphocytes/100 WBC (Bld) Lymphocytes/100 leukocytes in Blood by Automated count . [facility] MCH Auto (RBC) [Entitic mass ]Ordered By: Everett Valdez on 12-16-2024 MCH (RBC) [Entitic mass] MCH [Entitic mass] by Automated count 24.7-34.3 [facility] MCHC Auto (RBC) [Mass/Vol]Or dered By: Everett Valdez on 12-16-2024 MCHC (RBC) [Mass/Vol] MCHC [Mass/volume] by Automated count 32.0-35.0 [facility] MCV Auto (RBC) [Entitic vol] Ordered By: Everett Valdez on 12-16-2024 MCV (RBC) [Entitic vol] MCV [Entitic volume] by Automated count 80-100 [facility] Monocytes Auto (Bld) [#/Vol] Ordered By: Everett Valdez on 12-16-2024 Monocytes (Bld) [#/Vol] Automated blood monocyte count 0.0-0.8 [facility] Monocytes/100 WBC Auto (Bld) Ordered By: Everett Valdez on 12-16-2024 Monocytes/100 WBC (Bld) Automated monocyte % . [facility] Mucus [Presence] in Urine by AutomatedOrdered By: Everett Valdez on 12-16-2024 Mucus Auto Ql (U) Mucus [Presence] in Urine by Automated Abnormal [facility] Neutrophils Auto (Bld) [#/Vo l]Ordered By: Everett Valdez on 12-16-2024 Neutrophils (Bld) [#/Vol] Neutrophils [#/volume] in Blood by Automated count 1.8-7.7 [facility] Neutrophils/100 WBC Auto (Bl d)Ordered By: Everett Valdez on 12-16-2024 Neutrophils/100 WBC (Bld) Automated neutrophil % . [facility] Nitrite Test strip Ql (U)Ord ered By: Everett Valdez on 12-16-2024 Nitrite Ql (U) Nitrite [Presence] i n Urine by Test strip Negative [facility] No Panel InformationOrdered By: Everett Valdez on 12-16-2024 Estimated GFR (CKD-EPI) > 60.0 mL/Min [facility] Pharmacy Creatinine Clearance (Chem N/A [facility] Protein Electrophoresis M-Juan Miguel Not observed g/dL Not Observed [facility] Protein Electrophoresis Note Comment . [facility] Comment on above: Protein electrophore sis scan will follow via computer,mail, or plastic worker delivery.Performed at: [place] [id number] Director: Erick Neville PhD, Phone: [phone] Urine Random Prot Electrophor Note Comment . [facility] Comment on above: Protein electrophore sis scan will follow via computer,mail, or plastic worker delivery. Nucleated erythrocytes [Pres ence] in Blood by Automated countOrdered By: Everett Valdez on 12-16-2024 Nucleated RBC Auto Ql (Bld) Nucleated erythrocytes [Presence] in Blood by Automated count 0-0.5 [facility] Plasma thrombin timeOrdered By: Everett Valdez on 12-16-2024 Thrombin time Coag (PPP) [Time] TT plas 0.0-23.0 [facility] Platelet mean volume Auto (B ld) [Entitic vol]Ordered By: Everett Valdez on 12-16-2024 Platelet mean volume (Bld) [Entitic vol] Platelet mean volume [Entitic volume] in Blood by Automated count 6.3-10.7 [facility] Platelet poor plasma ratio o f lupus anticoagulant-sensitive activated partial thromboOrdered By: Everett Valdez on 12-16-2024 aPTT.lupus sensitive.excess phospholipid actual/normal Coag (PPP) [Relative time] Platelet poor plasma ratio of lupus anticoagulant-sensitiv e activated partial thrombo 0.0-47.6 [facility] Platelets Auto (Bld) [#/Vol] Ordered By: Everett Valdez on 12-16-2024 Platelets (Bld) [#/Vol] Platelets [#/volume] in Blood by Automated count 150-450 [facility] Potassium [Moles/volume] in Serum or PlasmaOrdered By: Everett Valdez on 12-16-2024 Potassium [Moles/Vol] Potassium [Moles/volume] in Serum or Plasma 3.5-5.1 [facility] Protein Electro, Random Urin destinee 12-16-2024 Albumin, Urine 34.3 % Normal . [facility] Comment on above: Performed By: #### P P #### [place] [address] [place] #### LUPANTCOAG #### [facility] , Nqcol-3-Uctdbsyq, Urine 2.2 % Normal . [facility] Comment on above: Performed By: #### P P #### [place] [address] [place] #### LUPANTCOAG #### [facility] , Evmtl-3-Dbocnbzs, Urine 18.4 % Normal . [facility] Comment on above: Performed By: #### P P #### [place] [address] [place] #### LUPANTCOAG #### [facility] , Beta Globulin, Urine 30.5 % Normal . [facility] Comment on above: Performed By: #### P P #### [place] [address] [place] #### LUPANTCOAG #### [facility] , Gamma Globulin, Urine 14.7 % Normal . [facility] Comment on above: Performed By: #### P P #### [place] [address] [place] #### LUPANTCOAG #### [facility] , M-Juan Miguel % Not Observed Normal Not Observed [facility] Comment on above: Performed By: #### P P #### [address] #### LUPANTCOAG #### [facility] , Please Note: Comment Normal . [facility] Comment on above: Result Comment: Prot ein electrophoresis scan will follow via computer, mail, or plastic worker delivery. PERFORMED BY: [place] [address] PATHOLOGIST BEAM DYER RECESSED VAT PAZ RUTHERFORD M.D. Performed By: #### P P #### [address] #### LUPANTCOAG #### [facility] , Protein (U) [Mass/Vol] 9.0 mg/dL Normal Not Estab. [facility] Comment on above: Performed By: #### P P #### [place] [address] [place] #### LUPANTCOAG #### [facility] , Protein Electrophoresis, Ser umon 12-16-2024 Albumin [Mass/Vol] 3.8 g/dL Normal 2.9-4.4 [facility] Comment on above: Performed By: #### C BC #### [address] Albumin/Globulin [Mass ratio] 1.4 {ratio} Normal 0.7-1.7 [facility] Comment on above: Performed By: #### C BC #### [address] Iuxsl-0-Dxpzhvrf 0.2 g/dL Normal 0.0-0.4 [facility] Comment on above: Performed By: #### C BC #### [address] Jzjjp-2-Ehgvhndu 0.6 g/dL Normal 0.4-1.0 [facility] Comment on above: Performed By: #### C BC #### [address] Beta Globulin 1.1 g/dL Normal 0.7-1.3 [facility] Comment on above: Performed By: #### C BC #### [address] Gamma Globulin 0.8 g/dL Normal 0.4-1.8 [facility] Comment on above: Performed By: #### C BC #### [address] Globulin (S) [Mass/Vol] 2.7 g/dL Normal 2.2-3.9 [facility] Comment on above: Performed By: #### C BC #### [address] M-Juan Miguel Not Observed Normal Not Observed [facility] Comment on above: Performed By: #### C BC #### [address] Protein [Mass/Vol] 6.5 g/dL Normal 6.0-8.5 [facility] Comment on above: Performed By: #### C BC #### [address] SPE-Note Comment Normal . [facility] Comment on above: Result Comment: Prot ein electrophoresis scan will follow via computer, mail, or plastic worker delivery. Performed at: - [facility] [id number] Retail Custodial Associate: Erick Neville PhD, Phone: [phone] Performed By: #### C BC #### [address] [place] [address] [place] Protein Test strip (U) [Mass /Vol]Ordered By: Everett Valdez on 12-16-2024 Protein (U) [Mass/Vol] Protein [Mass/volume] in Urine by Test strip Negative [facility] Protein [Mass/volume] in Ser um or PlasmaOrdered By: Everett Valdez on 12-16-2024 Protein [Mass/Vol] Protein [Mass/volume ] in Serum or Plasma 6.0-8.5 [facility] Prothrombin time (PT)Ordered By: Everett Valdez on 12-16-2024 PT Coag (PPP) [Time] Prothrombin time (PT) 9.0- 12.9 [facility] Comment on above: A hematocrit value g reater than 55% may lead to inaccurate results in coagulation testing. Patients having hematocrit values >55% require a special collection tube for coagulation studies. Please contact the laboratory at [phone] for redraw instructions. RBC Auto (Bld) [#/Vol]Ordere d By: Everett Valdez on 12-16-2024 RBC (Bld) [#/Vol] Erythrocytes [#/volume] in Blood by Automated count 3.60-5.00 [facility] RPR w/rfx to Quant TP Abson 12-16-2024 RPR, Rfx Quant RPR Non-Reactive Normal Non Reactive Th e [facility] Comment on above: Result Comment: Perf ormed at: CB - [facility] [address] [id number] Retail Custodial Associate: Erick Neville PhD, Phone: [phone] PERFORMED BY: [place] [address] PATHOLOGIST BEAM DYER RECESSED VAT PAZ RUTHERFORD M.D. Performed By: #### P P #### [facility] [address] [place] [address] #### LUPANTCOAG #### [facility] , Screening dilute Jamie's v iper venom time (DRVVT) with reflex to confirmatory testOrdered By: Everett Valdez on 12-16-2024 dRVVT Coag (PPP) [Time] Screening dilute Jamie's viper venom time (DRVVT) with reflex to confirmatory test 0.0-47.0 [facility] Screening lupus anticoagulan t-sensitive activated partial thromboplastin time (aPTT)Ordered By: Everett Valdez on 12-16-2024 aPTT.lupus sensitive Coag (PPP) [Time] Screening lupus anticoagulant-sensitiv e activated partial thromboplastin time (aPTT) 0.0-43.5 [facility] Serum RPR testOrdered By: Dori Valdez on 12-16-2024 Reagin Ab RPR Ql (S) Reagin Ab [Presence ] in Serum by RPR Non Reactive [facility] Comment on above: Performed at: [email or web address] [address] Director: Erick Neville PhD, Phone: [phone] Serum aldolase measurementOr dered By: Everett Valdez on 12-16-2024 Aldolase 13.5 U/L High 3.3-10.3 [facility] Comment on above: Performed at: [email or web address] [address] [id number] Director: Erick Neville PhD, Phone: [phone] Result Comment: Perf ormed at: [facility] [place] [address] Retail Custodial Associate: Erick Neville PhD, Phone: [phone] PERFORMED BY: [place] [address] PATHOLOGIST BEAM DYER RECESSED VAT PAZ RUTHERFORD M.D. Performed By: #### P P #### [place] [address] [place] #### LUPANTCOAG #### [facility] , Serum globulin measurement ( mass/volume)Ordered By: Everett Valdez on 12-16-2024 Globulin (S) [Mass/Vol] Serum globulin measurement (mass/volume) 2.2-3.9 [facility] Serum homogeneous pattern an tinuclear antibody (CHUYITA) titerOrdered By: Everett Valdez on 12-16-2024 Homogenous nuclear Ab pattern (S) [Titer] Serum homogeneous pattern antinuclear antibody (CHUYITA) titer [facility] Serum immunofixation electro phoresisOrdered By: Everett Valdez on 12-16-2024 Serum Immunofixation Comment . [facility] Comment on above: No monoclonality det ected. Serum nuclear antibody titer Ordered By: Everett Valdez on 12-16-2024 Nuclear Ab (S) [Titer] Serum nuclear antibody titer . [facility] Comment on above: Negative <1:80 Borde rline 1:80 Positive >1:80ICAP nomenclature: [id number] more information about Hep-2 cell patterns useANApatterns.org, the official website for theInternational Consensus on Antinuclear Antibody (CHUYITA)Patterns (ICAP).Performed at: [facility] [address] [id number] Director: Erick Neville PhD, Phone: [phone] Serum or plasma IgA measurem ent (mass/volume)Ordered By: Everett Valdez on 12-16-2024 IgA [Mass/Vol] IgA [Mass/volume] in Serum or Plasma 87-352 [facility] Serum or plasma IgG measurem ent (mass/volume)Ordered By: Everett Valdez on 12-16-2024 IgG [Mass/Vol] IgG [Mass/volume] in Serum or Plasma [phone] [facility] Serum or plasma IgM measurem ent (mass/volume)Ordered By: Everett Valdez on 12-16-2024 IgM [Mass/Vol] IgM [Mass/volume] in Serum or Plasma 26-217 [facility] Comment on above: Performed at: [facility] [place] [id number] Director: Erick Neville PhD, Phone: [phone] Serum or plasma albumin ravinder urement (mass/volume)Ordered By: Everett Valdez on 12-16-2024 Albumin [Mass/Vol] Albumin [Mass/volume ] in Serum or Plasma 2.9-4.4 [facility] Serum or plasma albumin/glob ulin mass ratioOrdered By: Everett Valdez on 12-16-2024 Albumin/Globulin [Mass ratio] Serum or plasma albumin/globulin mass ratio 0.7-1.7 [facility] Serum or plasma alpha 1 glob ulin measurement by electrophoresis (mass/volume)Ordered By: Everett Valdez on 12-16-2024 Alpha 1 globulin Elph [Mass/Vol] Serum or plasma alpha 1 globulin measurement by electrophoresis (mass/volume) 0.0-0.4 [facility] Serum or plasma alpha 2 glob ulin measurement by electrophoresis (mass/volume)Ordered By: Everett Valdez on 12-16-2024 Alpha 2 globulin Elph [Mass/Vol] Serum or plasma alpha 2 globulin measurement by electrophoresis (mass/volume) 0.4-1.0 [facility] Serum or plasma anion gap de terminationOrdered By: Everett Valdez on 12-16-2024 Anion gap [Moles/Vol] Serum or plasma an ion gap determination 6.0-15.0 [facility] Serum or plasma beta globuli n measurement by electrophoresis (mass/volume)Ordered By: Everett Valdez on 12-16-2024 Beta globulin Elph [Mass/Vol] Serum or plasma beta globulin measurement by electrophoresis (mass/volume) 0.7-1.3 [facility] Serum or plasma chromatin an tibody assay (units/volume)Ordered By: Everett Valdez on 12-16-2024 Chromatin Ab Qn Serum or plasma chromatin antibody assay (units/volume) 0.0-0.9 [facility] Comment on above: Performed at: [facility] [place] [id number] Director: Erick Neville PhD, Phone: [phone] Serum or plasma complement C 3 measurement (mass/volume)Ordered By: Everett Valdez on 12-16-2024 Complement C3 [Mass/Vol] Serum or plasma complement C3 measurement (mass/volume) 82-167 [facility] Comment on above: Performed at: [facility] [place] [id number] Director: Erick Neville PhD, Phone: [phone] Serum or plasma complement C 4 measurement (mass/volume)Ordered By: Everett Valdez on 12-16-2024 Complement C4 [Mass/Vol] Serum or plasma complement C4 measurement (mass/volume) 12-38 [facility] Serum or plasma gamma globul in measurement by electrophoresis (mass/volume)Ordered By: Everett Valdez on 12-16-2024 Gamma globulin Elph [Mass/Vol] Serum or plasma gamma globulin measurement by electrophoresis (mass/volume) 0.4-1.8 [facility] Serum or plasma thyroglobuli n antibody assay (units/volume)Ordered By: Everett Valdez on 12-16-2024 Thyroglobulin Ab Qn Serum or plasma thyroglobulin antibody assay (units/volume) 0.0-0.9 [facility] Comment on above: Thyroglobulin Antibo dy measured by [employer] DealMethodologyIt should be noted that the presence of thyroglobulinantibodies may not be pathogenic nor diagnostic, especiallyat very low levels. The assay commercial electrician has found thatfour percent of individuals without evidence of thyroiddisease or autoimmunity will have positive TgAb levels upto 4 IU/mL.Performed at: [facility] [address] [id number] Director: Erick Neville PhD, Phone: [phone] Serum or plasma thyroperoxid ase antibody assay (units/volume)Ordered By: Everett Valdez on 12-16-2024 TPO Ab Qn Serum or plasma thyroperoxidase antibody assay (units/volume) 0-34 [facility] Comment on above: Performed at: [facility] [address] [id number] Director: Erick Neville PhD, Phone: [phone] Sodium [Moles/volume] in Ser um or PlasmaOrdered By: Everett Valdez on 12-16-2024 Sodium [Moles/Vol] Sodium [Moles/volume ] in Serum or Plasma 136-145 [facility] Specific gravity Test strip (U) [Rel density]Ordered By: Everett Valdez on 12-16-2024 Specific gravity (U) [Rel density] Specific gravity of Urine by Test strip 1.001-1.030 [facility] Thyroid Peroxidase Antibodie son 12-16-2024 Thyroid Peroxidase Antibodies 10 [IU]/mL Normal 0-34 [facility] Comment on above: Result Comment: Perf ormed at: [facility] - [facility] [address] [id number] Retail Custodial Associate: Erick Neville PhD, Phone: [phone] Performed By: #### P P #### [facility] [address] [place] [address] #### LUPANTCOAG #### [facility] , Thyroid Stimulating Hormoneo n 12-16-2024 TSH Qn 1.48 m[IU]/L Normal 0.45-5.33 [facility] Comment on above: Result Comment: PERF ORMED BY: [place] [address] PATHOLOGIST BEAM DYER RECESSED VAT PAZ RUTHERFORD M.D. Performed By: #### E SR, TSH3, CK, ADDONUAPLUS, CBC, CRP, CMP, T4F #### [facility] [address] [place] [address] #### RPR W RFX, ALDOLASE, GUZMAN,URINE, UPE RAND #### [facility] , Thyrotropin [Units/volume] i n Serum or PlasmaOrdered By: Everett Valdez on 12-16-2024 TSH Qn Thyrotropin [Units/volume] in Serum or Plasma 0.45-5.33 [facility] Thyroxine (T4) free [Mass/vo lume] in Serum or PlasmaOrdered By: Everett Valdez on 12-16-2024 Free T4 [Mass/Vol] Thyroxine (T4) free [Mass/volume] in Serum or Plasma 0.61-1.12 [facility] Total hemolytic complement C H50 assayOrdered By: Everett Valdez on 12-16-2024 Total Complement (CH50) >60 U/mL >41 [facility] Comment on above: Age Male Female 1 - 30 days [...] table above to determine out of range values.Performed at: - [facility] [id number] Director: Erick Neville PhD, Phone: [phone] Urea nitrogen [Mass/volume] in Serum or PlasmaOrdered By: Everett Valdez on 12-16-2024 Urea nitrogen [Mass/Vol] Urea nitrogen [Mass/volume] in Serum or Plasma 7 [facility] Urine alpha 1 globulin/total protein by electrophoresisOrdered By: Everett Valdez on 12-16-2024 Alpha 1 globulin Elph (U) [Mass fraction] Urine alpha 1 globulin/total protein by electrophoresis . [facility] Urine alpha 2 globulin/total protein ratio by electrophoresisOrdered By: Everett Valdez on 12-16-2024 Alpha 2 globulin Elph (U) [Mass fraction] Urine alpha 2 globulin/total protein ratio by electrophoresis . [facility] Urine beta globulin measurem ent by electrophoresis (mass/volume)Ordered By: Everett Valdez on 12-16-2024 Beta globulin Elph (U) [Mass/Vol] Urine beta globulin measurement by electrophoresis (mass/volume) . [facility] Urine protein measurement (m ass/volume)Ordered By: Everett Valdez on 12-16-2024 Protein (U) [Mass/Vol] Protein [Mass/volume] in Urine Not Estab. [facility] Urobilinogen Test strip (U) [Mass/Vol]Ordered By: Everett Valdez on 12-16-2024 Urobilinogen (U) [Mass/Vol] Urobilinogen [Mass/volume] in Urine by Test strip Normal [facility] WBC Auto (Bld) [#/Vol]Ordere d By: Everett Valdez on 12-16-2024 WBC (Bld) [#/Vol] Leukocytes [#/volume ] in Blood by Automated count 3.8-11.6 [facility] aPTT in Platelet poor plasma by Coagulation assayOrdered By: Everett Valdez on 12-16-2024 aPTT Coag (PPP) [Time] Activated partial thromboplastin time (aPTT) in platelet poor plasma by coagulation a 25.1-36.5 [facility] Comment on above: A hematocrit value g reater than 55% may lead to inaccurate results in coagulation testing. Patients having hematocrit values >55% require a special collection tube for coagulation studies. Please contact the laboratory at [phone] for redraw instructions. aPTT.lupus sensitive/aPTT.hattie pus sensitive W excess phospholipid (screen to confirm raOrdered By: Everett Valdez on 12-16-2024 aPTT.lupus sensitive/aPTT.lupus sensitive W excess phospholipid Coag (PPP) [Ratio] aPTT.lupus sensitive/aPTT.lupus sensitive W excess phospholipid (screen to confirm ra 0.00-1.34 [facility] pH Test strip (U)Ordered By: Everett Valdez on 12-16-2024 pH (U) pH of Urine by Test strip 5.0-9.0 [facility] [facility] HBV surface Ab IA Qnon 12-11 Anti HBs quant. >500.00 Normal [facility] Comment on above: Result Comment: NOTE Vaccinated: >=10.00 mIU/mL, Positive (Immune) Unvaccinated: <10.00 mIU/mL, Negative (Not Immune) Interpretive values have changed due to implementation of a new method. Values run higher than previous method. Performed By: #### 3 5275-7, 00122-4, 8014-3, 5193-8, 6476-6 #### [facility] ([id number]) [address], [address] [place] [address] MeV IgG IA Ql (S)on 12-11-19 25 RUBEOLA AB SCREEN 4.1 AI High <0.9 [facility] Comment on above: Result Comment: POSI TIVE: Antibody(IgG) detected. Indicates previous exposure to rubeola virus and immunity. Performed By: #### 3 5275-7, 85771-3, 8014-3, 5193-8, 6476-6 #### [facility] ([id number]) [address], [address] [place] [address] MuV IgG IA Ql (S)on 12-11-19 25 MUMPS VIRUS IgG 2.1 AI High <0.9 [facility] Comment on above: Result Comment: Interpretation-------- <0.9 Negative 0.9 - 1.0 Equivocal >1.0 Positive Performed By: #### 3 5275-7, 81684-0, 8014-3, 5193-8, 6476-6 #### [facility] ([id number]) [address], [address] [place] [address] Rubella virus IgG Qn (S)on 0 12-11-2024 RUBELLA IgG 19 IU/mL Normal [facility] Comment on above: Result Comment: Interpretation-------- <8 NEGATIVE-considered Not Immune 8-9 EQUIVOCAL-consider retesting with new specimen >9 POSITIVE-considered Immune Performed By: #### 3 5275-7, 48604-4, 8014-3, 5193-8, 6476-6 #### [facility] ([id number]) [address], [address] [place] [address] VZV IgG IA Ql (S)on 12-11-19 VARICELLA IgG >8.0 High <0.9 [facility] Comment on above: Result Comment: Interpretation-------- <0.9 Negative 0.9 - 1.0 Equivocal >1.0 Positive Performed By: #### 3 5275-7, 72285-2, 8014-3, 5193-8, 6476-6 #### [facility] ([id number]) [address], [address] [place] [address] X-ray reportOrdered By: Brett Bullard on 11-20-2024 Study report [facility] Main [address] [address] XRay Report Signed Patient: Mary Leal MR#: [id number] : 1970 Acct:[id number] Age/Sex: 54 / F ADM Date: 5 Loc: XD Room: Type: REG CLI Attending Dr: Anibal Medrano DO Copies [...] Andres Bullard M.D.11/20/2024 10:02 PM Dictation Location: [facility] Transcribed By: [facility] 11/20/242201 Dictated By: Andres Bullard DO 11/20/242158 Signed By: 11/20/242201 [facility] XR shoulder BI min 2Von 11-06 XR shoulder BI min 2V [facility] Main [address] [address] XRay Report Signed Patient: Mary Leal MR#: [id number] : 1970 Acct:[id number] Age/Sex: 54 / F ADM Date: 11/20/24 Loc: XD Room: Type: REG CLI Attending Dr: Anibal Medrano DO Copies [...] Andres Bullard M.D.11/20/2024 10:02 PM Dictation Location: [facility]20 Transcribed By: MARIO 11/20/242201 Dictated By: Andres Bullard DO 11/20/242158 Signed By: 11/20/242201 Normal [facility] NM gastric emptying studyon 11-14-2024 NM gastric emptying study [facility] Main [place] [address] [place] [address] Nuclear Medicine Report Signed Patient: Mary Leal MR#: [id number] : 1970 Acct:[id number] Age/Sex: 54 / F ADM Date: 11/14/24 Loc: [place] Room: Type: [facility] Attending Dr: Padmaja Ledezma MD Copies to: Quinton Melendez Jr, DO Na Li, MD Ordering Provider: Padmaja Ledezma MD Date of Service: 11/14/24 NM/NM gastric [...] Melendez Jr., D.O.11/14/2024 1:54 PM Dictation Location: [facility]19 Transcribed By: MARIO 11/14/24 135 Dictated By: Quinton Melendez Jr, DO 11/14/24 1354 Signed By: 11/14/24 1354 Normal [facility] Basic Metabolic Panelon 12 Anion gap [Moles/Vol] 9.4 mmol/L Normal 6.0-15.0 [facility] Comment on above: Performed By: #### B MP #### [address] Calcium [Mass/Vol] 9.0 mg/dL Normal 8.6-10.3 [facility] Comment on above: Performed By: #### B MP #### [address] Chloride [Moles/Vol] 107 mmol/L Normal 98-107 [facility] Comment on above: Performed By: #### B MP #### [address] CO2 [Moles/Vol] 27.3 mmol/L Normal 21.0-31.0 [facility] Comment on above: Performed By: #### B MP #### [address] Creatinine [Mass/Vol] 0.69 mg/dL Normal 0.60-1.20 [facility] Comment on above: Performed By: #### B MP #### [place] [address] [place] Creatinine Clr Calc Pharmacy 91.21 Normal [facility] Comment on above: Result Comment: PERF ORMED BY: [place] [address] PATHOLOGIST BEAM DYER RECESSED VAT PAZ RUTHERFORD M.D. Performed By: #### B MP #### [place] [address] [place] GFR/1.73 sq M.predicted MDRD (S/P/Bld) [Vol rate/Area] mL/min/{1.73_m2} Normal [facility] Comment on above: Performed By: #### B MP #### [place] [address] [place] Glucose [Mass/Vol] 93 mg/dL Normal 70-100 [facility] Comment on above: Result Comment: [place] Glucose Reference Range is dependent on time and content of last meal. Glucose of more than 200 mg/dL in a nonstressed, ambulatory subject supports the diagnosis of Diabetes Mellitus. ADA recommended reference range Performed By: #### B MP #### [facility] [address] Potassium [Moles/Vol] 3.7 mmol/L Normal 3.5-5.1 [facility] Comment on above: Performed By: #### B MP #### [facility] [address] Sodium [Moles/Vol] 140 mmol/L Normal 136-145 [facility] Comment on above: Performed By: #### B MP #### [address] Urea nitrogen [Mass/Vol] 14 mg/dL Normal 7-25 [facility] Comment on above: Performed By: #### B MP #### [facility] [address] [place] [address] [place] Basophils Auto (Bld) [#/Vol] Ordered By: Cullen Christianson on 10-24-2024 Basophils (Bld) [#/Vol] Automated basophil count 0.0-0.2 [facility] Basophils/100 WBC Auto (Bld) Ordered By: Cullen Christianson on 10-24-2024 Basophils/100 WBC (Bld) Automated basophil % . [facility] Calcium [Mass/volume] in Ser um or PlasmaOrdered By: Cullen Christianson on 10-24-2024 Calcium [Mass/Vol] Calcium [Mass/volume ] in Serum or Plasma 8.6-10.3 [facility] Carbon dioxide, total [Moles /volume] in Serum or PlasmaOrdered By: Cullen Christianson on 10-24-2024 CO2 [Moles/Vol] Carbon dioxide, tota l [Moles/volume] in Serum or Plasma 21.0-31.0 [facility] Chloride [Moles/volume] in S jay or PlasmaOrdered By: Cullen Christianson on 10-24-2024 Chloride [Moles/Vol] Chloride [Moles/volume] in Serum or Plasma 98-107 [facility] Complete Blood Count Auto Di ffon 10-24-2024 Basophils (Bld) [#/Vol] 0.1 10*3/uL Normal 0.0-0.2 [facility] Comment on above: Result Comment: PERF ORMED BY: [place] [address] PATHOLOGIST BEAM DYER RECESSED VAT PAZ RUTHERFORD M.D. Performed By: #### C BC #### [address] Basophils/100 WBC (Bld) 1.1 % Normal . [facility] Comment on above: Performed By: #### C BC #### [address] Eosinophils (Bld) [#/Vol] 0.2 10*3/uL Normal 0.0-0.45 [facility] Comment on above: Performed By: #### C BC #### [address] Eosinophils/100 WBC (Bld) 3.7 % Normal . [facility] Comment on above: Performed By: #### C BC #### [address] Erythrocyte distribution width (RBC) [Ratio] 13.1 % Normal 11.9-15.3 [facility] Comment on above: Performed By: #### C BC #### [address] Hematocrit (Bld) [Volume fraction] 37.9 % Normal 34.0-46.4 [facility] Comment on above: Performed By: #### C BC #### [address] Hemoglobin (Bld) [Mass/Vol] 12.8 g/dL Normal 11.8-15.4 [facility] Comment on above: Performed By: #### C BC #### [address] Lymphocytes (Bld) [#/Vol] 1.5 10*3/uL Normal 1.00-4.8 [facility] Comment on above: Performed By: #### C BC #### [address] Lymphocytes/100 WBC (Bld) 29.9 % Normal . [facility] Comment on above: Performed By: #### C BC #### [address] MCH (RBC) [Entitic mass] 28.7 pg Normal 24.7-34.3 [facility] Comment on above: Performed By: #### C BC #### [address] MCV (RBC) [Entitic vol] 85.1 fL Normal 80-100 [facility] Comment on above: Performed By: #### C BC #### [address] Mean Corpuscular HGB Conc 33.8 g/dL Normal 32.0-35.0 [facility] Comment on above: Performed By: #### C BC #### [address] Monocytes (Bld) [#/Vol] 0.4 10*3/uL Normal 0.0-0.8 [facility] Comment on above: Performed By: #### C BC #### [address] Monocytes/100 WBC (Bld) 7.8 % Normal . [facility] Comment on above: Performed By: #### C BC #### [address] Neutrophils (Bld) [#/Vol] 2.9 10*3/uL Normal 1.8-7.7 [facility] Comment on above: Performed By: #### C BC #### [address] Neutrophils/100 WBC (Bld) 57.5 % Normal . [facility] Comment on above: Performed By: #### C BC #### [facility] [address] [place] [address] [place] NRBC% 0.1 /100{WBC} Normal 0-0.5 [facility] Comment on above: Performed By: #### C BC #### [facility] [address] [place] [id number] [facility] Platelet mean volume (Bld) [Entitic vol] 7.1 fL Normal 6.3-10.7 [facility] Comment on above: Performed By: #### C BC #### [facility] [address] [place] [address] [place] Platelets (Bld) [#/Vol] 307 10*3/uL Normal 150-450 [facility] Comment on above: Performed By: #### C BC #### [facility] [address] [place] [id number] [place] RBC (Bld) [#/Vol] 4.45 10*6/uL Normal 3.60-5.[address] [facility] Comment on above: Performed By: #### C BC #### [facility] [address] [place] [id number] [place] WBC (Bld) [#/Vol] 5.0 10*3/uL Normal 3.8-11.6 [facility] Comment on above: Performed By: #### C BC #### [facility] [address] Creatinine [Mass/volume] in Serum or PlasmaOrdered By: Cullen Christianson on 10-24-2024 Creatinine [Mass/Vol] Creatinine [Mass/volume] in Serum or Plasma 0.60-1.20 [facility] Eosinophils Auto (Bld) [#/Vo l]Ordered By: Cullen Christianson on 10-24-2024 Eosinophils (Bld) [#/Vol] Automated eosinophil count 0.0-0.45 [facility] Eosinophils/100 WBC Auto (Bl d)Ordered By: Cullen Christianson on 10-24-2024 Eosinophils/100 WBC (Bld) Automated eosinophil % . [facility] Erythrocyte distribution wid th Auto (RBC) [Ratio]Ordered By: Cullen Christianson on 10-24-2024 Erythrocyte distribution width (RBC) [Ratio] Erythrocyte distribution width [Ratio] by Automated count 11.9-15.3 [facility] Glucose [Mass/volume] in Ser um or PlasmaOrdered By: Cullen Christianson on 10-24-2024 Glucose [Mass/Vol] Glucose [Mass/volume ] in Serum or Plasma 70-100 [facility] Comment on above: ADA recommended refe rence rangeRandom Glucose Reference Range is dependent on time and content of last meal. Glucose of more than 200 mg/dL in a nonstressed, ambulatory subject supports the diagnosis of Diabetes Mellitus. Hematocrit Auto (Bld) [Volum e fraction]Ordered By: Cullen Christianson on 10-24-2024 Hematocrit (Bld) [Volume fraction] Hematocrit [Volume Fraction] of Blood by Automated count 34.0-46.4 [facility] Hemoglobin [Mass/volume] in BloodOrdered By: Cullen Christianson 10-24-2024 Hemoglobin (Bld) [Mass/Vol] Hemoglobin [Mass/volume] in Blood 11.8-15.4 [facility] Leukocytes [#/volume] correc herbert for nucleated erythrocytes in Blood by Automated counOrdered By: Cullen Christianson on 10-24-2024 WBC corrected for nucl RBC Auto (Bld) [#/Vol] Leukocytes [#/volume] corrected for nucleated erythrocytes in Blood by Automated coun 3.8-11.6 [facility] Lymphocytes Auto (Bld) [#/Vo l]Ordered By: Cullen Christianson 10-24-2024 Lymphocytes (Bld) [#/Vol] Lymphocytes [#/volume] in Blood by Automated count 1.00-4.8 [facility] Lymphocytes/100 WBC Auto (Bl d)Ordered By: Cullen Christianson on 10-24-2024 Lymphocytes/100 WBC (Bld) Lymphocytes/100 leukocytes in Blood by Automated count . [facility] MCH Auto (RBC) [Entitic mass ]Ordered By: Cullen Christianson on 10-24-2024 MCH (RBC) [Entitic mass] MCH [Entitic mass] by Automated count 24.7-34.3 [facility] MCHC Auto (RBC) [Mass/Vol]Or dered By: Cullen Christianson on 10-24-2024 MCHC (RBC) [Mass/Vol] MCHC [Mass/volume] by Automated count 32.0-35.0 [facility] MCV Auto (RBC) [Entitic vol] Ordered By: Cullen Christianson on 10-24-2024 MCV (RBC) [Entitic vol] MCV [Entitic volume] by Automated count 80-100 [facility] Monocytes Auto (Bld) [#/Vol] Ordered By: Cullen Christianson on 10-24-2024 Monocytes (Bld) [#/Vol] Automated blood monocyte count 0.0-0.8 [facility] Monocytes/100 WBC Auto (Bld) Ordered By: Cullen Christianson on 10-24-2024 Monocytes/100 WBC (Bld) Automated monocyte % . [facility] Neutrophils Auto (Bld) [#/Vo l]Ordered By: Cullen Christianson on 10-24-2024 Neutrophils (Bld) [#/Vol] Neutrophils [#/volume] in Blood by Automated count 1.8-7.7 [facility] Neutrophils/100 WBC Auto (Bl d)Ordered By: Cullen Christianson on 10-24-2024 Neutrophils/100 WBC (Bld) Automated neutrophil % . [facility] No Panel InformationOrdered By: Cullen Christianson on 10-24-2024 Estimated GFR (CKD-EPI) > 60.0 mL/Min [facility] Pharmacy Creatinine Clearance (Chem 91.21 [facility] Nucleated erythrocytes [Pres ence] in Blood by Automated countOrdered By: Cullen Christianson on 10-24-2024 Nucleated RBC Auto Ql (Bld) Nucleated erythrocytes [Presence] in Blood by Automated count 0-0.5 [facility] Platelet mean volume Auto (B ld) [Entitic vol]Ordered By: Cullen Christianson on 10-24-2024 Platelet mean volume (Bld) [Entitic vol] Platelet mean volume [Entitic volume] in Blood by Automated count 6.3-10.7 [facility] Platelets Auto (Bld) [#/Vol] Ordered By: Cullen Christianson on 10-24-2024 Platelets (Bld) [#/Vol] Platelets [#/volume] in Blood by Automated count 150-450 [facility] Potassium [Moles/volume] in Serum or PlasmaOrdered By: Cullen Christianson on 10-24-2024 Potassium [Moles/Vol] Potassium [Moles/volume] in Serum or Plasma 3.5-5.1 [facility] RBC Auto (Bld) [#/Vol]Ordere d By: Cullen Christianson on 10-24-2024 RBC (Bld) [#/Vol] Erythrocytes [#/volume] in Blood by Automated count 3.60-5.00 [facility] Serum or plasma anion gap de terminationOrdered By: Cullen Christianson on 10-24-2024 Anion gap [Moles/Vol] Serum or plasma an ion gap determination 6.0-15.0 [facility] Sodium [Moles/volume] in Ser um or PlasmaOrdered By: uCllen Christianson on 10-24-2024 Sodium [Moles/Vol] Sodium [Moles/volume ] in Serum or Plasma 136-145 [facility] Urea nitrogen [Mass/volume] in Serum or PlasmaOrdered By: Cullen Christianson on 10-24-2024 Urea nitrogen [Mass/Vol] Urea nitrogen [Mass/volume] in Serum or Plasma 7-25 [facility] WBC Auto (Bld) [#/Vol]Ordere d By: Cullen Christianson on 10-24-2024 WBC (Bld) [#/Vol] Leukocytes [#/volume ] in Blood by Automated count 3.8-11.6 [facility] Boyd 10-23-2024 L -- ---- Specimen: [id number] Received: 10/24/24 Status: CASEY Pastrana Num: [id number] Spec Type: Surgical Subm Dr: Dipti Acevedo,DO Tissues: A Vaginal mucosa-other than incidental (GRANULATION TISSUE) Procedures: HE, Gross/Micro L4 ---- Age/ Patient Sex Location Account Attending Physician ---- Mary Leal 54/F [place] [id number] Dipti Acevedo DO ---- SPEC NUM: [id number] RECD: 10/24/24 STATUS: ARNOLDOCarey PASTRANA NUM: [id number] BOAZ: 10/23/24- [facility] DR: Dipti Acevedo DO ENTERED: 10/24/[address] [facility] DR: KAYLIN TYPE: Surgical DEPT: S ENTERED BY: [id number] RECV BY: [id number] ORDERED: HE, Gross/Micro L4 ORDERED: HE, Gross/Micro L4 Pathological Diagnosis Vaginal mucosa, vaginal [...] submitted in a single cassette. (1, ns, [id number]) LES ---- Specimen: [id number] Received: 10/24/24 Status: CASEY Pastrana Num: [id number] Spec Type: Surgical Subm Dr: Dipti Acevedo,DO Tissues: A Vaginal mucosa-other than incidental (GRANULATION TISSUE) Procedures: Praneeth SOTELO/Nadja Fisher ---- Patient: Mary Leal [id number] (Continued) ---- Specimen: [id number] Received: 10/24/24 (Continued) Signed (signature on file) Kiara Velasco MD 10/26/24 1126 ---- Specimen: [id number] Received: 10/24/24 Status: CASEY Pastrana Num: [id number] Spec Type: Surgical Subm Dr: Dipti Acevedo DO Tissues: A Vaginal mucosa-other than incidental (GRANULATION TISSUE) Procedures: ASHLEIGH, Gross/Micro L4 ---- Patient: Mary Leal [id number] (Continued) ---- Specimen: [id number] Received: 10/24/24 (Continued) Microscopic Description Microscopic examinations are performed supporting the above interpretation CPT Codes 17307 ---- ---- Specimen: [id number] Received: 10/24/24 Status: CASEY Pastrana Num: [id number] Spec Type: Surgical Subm Dr: Dipti Acevedo DO Tissues: A Vaginal mucosa-other than incidental (GRANULATION TISSUE) Procedures: ASHLEIGH, Gross/Nadaj L4 ---- Patient: Mary Leal [id number] (Continued) ---- Signed (signature on file) Kiara Velasco MD 10/26/24 1126 Normal [facility] MR cervical spine wo conon 1 12-11-2023 MR cervical spine wo con [facility] [place] [address] MRI Report Signed Patient: Mary Leal MR#: [id number] : 1970 Acct:[id number] Age/Sex: 54 / F ADM Date: 10/10/24 Loc: [facility] Room: Type: [facility] Attending Dr: Anibal Medrano DO Copies to: [...] Rajiv Garcia M.D.10/10/2024 3:47 PM Dictation Location: [facility] Transcribed By: [facility] 10/10/24 154 Dictated By: Rajiv Garcia II, MD 10/10/241542 Signed By: 10/10/241546 Normal [facility] MR lumbar spine wo conon MR lumbar spine wo con [facility] [place] [address] MRI Report Signed Patient: Mary Leal MR#: [id number] : 1970 Acct:[id number] Age/Sex: 54 / F ADM Date: 10/10/24 Loc: [facility] Room: Type: [facility] Attending Dr: Monica IBARRA Copies to: FRED [...] Rajiv Garcia M.D.10/10/2024 3:55 PM Dictation Location: [place] [address] Transcribed By: [facility] 10/10/24 1555 Dictated By: Rajiv Garcia II, MD 10/10/24 1547 Signed By: 10/10/24 1555 Normal [facility] XR pre/post mri xrayon 10-10 XR pre/post mri xray [facility] [place] [address] XRay Report Signed Patient: Mary Leal MR#: [id number] : 1970 Acct:[id number] Age/Sex: 54 / F ADM Date: 10/10/24 Loc: [facility] Room: Type: [facility] Attending Dr: Anibal Medrano DO Copies to: [...] Rajiv Garcia M.D.10/10/2024 3:58 PM Dictation Location: [place] [address] Transcribed By: [facility] 10/10/241557 Dictated By: Rajiv Garcia II, MD 10/10/241554 Signed By: 10/10/241557 Normal [facility] Urinalysis macro (dipstick) panel (U)on 09-04-2024 Bilirubin, UA Negative Negative - 4(70) +++ mg/dL [facility] Blood, UA Negative Negative - 50 Devin/mcL [facility] Clarity, UA Clear [facility] Color, UA Yellow [facility] Glucose, UA Negative Negative - 2000(110) ++++ mg/dL [facility] Ketones, UA Negative Negative - 160(16) ++++ mg/dL [facility] Leukocytes, UA Negative Negative - 500+++ Aicha/mcL [facility] Nitrite, UA Negative Negative - Positive [facility] pH, UA 5 5 - 9 [facility] Protein, UA Negative Negative - 2000(20) ++++ mg/dL [facility] Spec Grav, UA 1.01 1 - 1.03 [facility] Urobilinogen, UA 0.2 0.2 - 12 mg/dL [facility] US ABDOMEN LIMITEDon 024 US ABDOMEN LIMITED [...] report is generated using voice recognition reporting ([employer]). On occasion Live Gam[employer]ribe erroneously drops words from the report or replaces the spoken word with similar sounding words. Please call with any questions/concerns regarding this report.* Dictated and transcribed 08/28/2024/tm This report has been electronically signed and approved by the interpreting radiologist. Electronically Signed Dipti Lockhart II, M.D. 2024-08-28 16:38:48 Normal Not Available Follow-Upon 07-26-2024 Follow-Up [id number] Darrian Leal 1970 F Date Provider Department Center 07/26/2024 [facility]ara[facility]eganCHRISTENSENPAULINE [facility] SLEEP [facility] No family history on file Level of Service:03771 [place] OFFICE/OUTPATIENT ESTABLISHED MOD MDM 30 MIN Reason for Visit and Comments: Follow-up [577255] - Inspire initiation Normal [facility] US ABDOMEN LIMITEDon 024 US [...] report is generated using voice recognition reporting ([employer]). On occasion Power[employer]ribe erroneously drops words from the report or [...] appointment to 07/26 at 10:00 am. Normal [facility] Telephoneon 07-12-2024 Telephone [id number] Darrian Leal 1970 F Date Provider Department Center 07/12/2024 PAULINE SANTACRUZ [facility] SLEEP [facility] No family history on file Reason for Visit and Comments: Reschedule [709] Normal [facility] 36on 06-17-2024 36 Rescheduled cancelle d Inspire follow up appointment for 06/26 at 9:00 am. Normal [facility] Boyd 05-27-2024 L Specimen: [id number] Received: 05/28/24 Status: SOUCarey Releo Num: [id number] Spec Type: Surgical Subm Dr: Sade Felix DPM, MS Tissues: A Gross Only (CALCANEOUS GRAFT) Procedures: Level 1 Gross Age/ Patient Sex Location Account Attending Physician Mary Leal 54/F LABELL [id number] Sade Felix DPM, MS SPEC NUM: [id number] RECD: 05/28/24 STATUS: [facility] NUM: [id number] BOAZ: 05/27/[address]: Sade Felix DPM, MS ENTERED: 05/28/[address]: Yoan Collins SPEC TYPE: Surgical DEPT: AVA KELLEY ORDERED: Level 1 Gross ORDERED: Level [...] inscription is identified on the device [id number] . Gross photos are included. The specimen is for gross only examination. CPT Codes 18541 DEVICE DEVICE ---- ---- Specimen: [id number] Received: 05/28/24 Status: CASEY Pastrana Num: [id number] Spec Type: Surgical Subm Dr: Sade Felix,FADUMO, MS Tissues: A Gross Only (CALCANEOUS GRAFT) Procedures: Level 1 Gross ---- Patient: Mary Leal [id number] (Continued) ---- Signed (signature on file) Paz Rutherford MD 06/19/24 1554 Normal [facility] MR ankle RT wo conon 024 MR ankle RT wo con [facility] Main [place] [address] [place] [address] MRI Report Signed Patient: Mary Leal MR#: [id number] : 1970 Acct:[id number] Age/Sex: 54 / F ADM Date: 04/30/24 Loc: [facility] Room: Type: [facility] Attending Dr: Sade Felix DPM, MS Copies [...] Andres Bullard M.D.04/30/2024 3:14 PM Dictation Location: [place] [address] Transcribed By: [facility] 04/30/24 1514 Dictated By: Andres Bullard DO 04/30/24 1503 Signed By: 04/30/24 1514 Normal [facility] 29on 04-28-2024 29 Encounter addended b y: Dick Mann MD on: 05/07/2024 7:26 PM Actions taken: Charge Capture section accepted Normal [facility] Documentationon 04-17-2024 Documentation [id number] Darrian Leal en 1970 F Date Provider Department [place] 04/17/2024 RADHA YARBROUGH [facility] Gerardo Pool No family history on file [facility] Letter (Out)on 04-17-2024 Letter (Out) [id number] Darrian Leal en 1970 F Date Provider Department [place] 04/17/202488103-UTUSRADHA STARK [facility] Gerardo Pool No family history on file [facility] DIAGNOSTIC UPPER ENDOSCOPYon 04-12-2024 [place] [facility] Patient Name: Mary Leal Procedure Date: 04/12/2024 11:46 AM Date of : 1970 Admit Type: Outpatient Age: 53 Room: [facility] 3 Gender: Female Note Status: Finalized Attending MD: Milagros Franco MD, PHD, [id number] Procedure: Upper GI endoscopy Attending Participation: I personally performed the entire procedure. Indications: Dysphagia, Heartburn Providers: Milagros Franco MD, PHD (Doctor), Stacie Johns RN (Nurse), Nawaf Pinzon Urology Physician (Urology Physician), Everett Maria APRN-BECCA (Anesthesia Staff) Referring MD: [...] verified by the physician, the nurse, the fireworks assembler and the lead technician in the procedure room. Mental Status [...] oxygen saturations were monitored continuously. The Endoscope ([id number]) was introduced through the mouth, and advanced [...] examined (more content not included)... LAB, [facility] Radiology Study observation (narrative) [facility] SURG PATH REQUESTon 04-12-20 24 Case Report Normal [facility] Comment on above: Result Comment: Surg ical Pathology Report Case: [id number] Authorizing Provider: Milagros Franco MD, Collected: 04/12/2024 12:48 PM PhD Ordering Location: Endoscopy Outpatient Care Received: 04/12/2024 12:57 PM [place] Pathologist: Manish Tom MD Specimens: A) - TISSUE, gastric biopsy r/o HP evaluate for eosiniphils (large forceps) B) - TISSUE, GE Junction r/o Barrets (large forceps) Performed By: #### S URGP #### [facility] (DEFAULT) [address] [place] [address] Clinical History Preop Diagnosis: River Grade D esophagitis [K20.80]. Early satiety [R68.81]. Unintentional weight loss [R63.4]. Gastroparesis [K31.84]. Medical History: Gastroesophageal reflux disease. Asthma. Benign essential hypertension. History of colectomy. Gastroparesis. Arthritis. Depression. Migraine. Constipation. [facility] Comment on above: Performed By: #### S URGP #### [facility] (DEFAULT) [address] [place] [address] Gross Description [facility] Comment on above: Result Comment: [...] dimension. TE 1 Lab Use Only: JobID [id number] Praneether for this case was: Carmen Maradiaga Performed By: #### S URGP #### [facility] (DEFAULT) [address] [place] [id number] Microscopic Description A microscopic examination was performed. [facility] Comment on above: Performed By: #### S URGP #### [facility] (DEFAULT) [address] [address] Pathologic Diagnosis [facility] Comment on above: Result Comment: Fernando cottonach, biopsy: Active erosive esophagitis. No Helicobacter pylori organisms identified. B. GE junction, biopsy: Gastroesophageal squamocolumnar junctional mucosa with reflux pattern of injury. No Vega's specialized columnar epithelium (intestinal metaplasia) identified. Performed By: #### S URGP #### [facility] (DEFAULT) [address] [place] [address] Professional Interpretation Performed at: [facility] Comment on above: Result Comment: [facility] For Immediate Release to [facility] Yes [address] [address] Performed By: #### S URGP #### [facility] (DEFAULT) [address] [place] [address] 36on 04-10-2024 36 Left voicemail to [facility] to schedule Inspire follow up appointment following sleep study on 04/28. Offered 06/05 at 8:30 am or 4:00 pm OR 06/12 at 8:30 am. Normal [facility] Telephoneon 04-10-2024 Telephone [id number] Darrian Leal en 1970 F Date Provider Department [place] 04/10/2024 PAULINE SANTACRUZ [facility] SLEEP [facility] No family history on file Reason for Visit and Comments: Appointment [375] [facility] Follow-Upon 04-03-2024 Follow-Up [id number] Darrian Leal en 1970 F Date Provider Department [place] 04/03/2024 PAULINE SANTACRUZ [facility] No family history on file Level of Service:61937 UT OFFICE/OUTPATIENT ESTABLISHED MOD MDM 30 MIN Reason for Visit and Comments: Follow-up [060126] - Pt has the Inspire and is here for a follow up. She states it is unbelievable how well it is working for her. She is sleeping through the night, which she hasn't done for years. She is here for a few small adjustments, such as moving it from 6 hours of sleep a night to 8. Normal [facility] CBC AND ELECTRONIC DIFFon Basophils (Bld) [#/Vol] 0.04 10*3/uL Normal 0.00-0.15 [facility] Comment on above: Performed By: #### L AB980 #### [facility] (DEFAULT) [address] [address] Basophils/100 WBC (Bld) 0.6 % Normal [facility] Comment on above: Performed By: #### L AB980 #### [facility] (DEFAULT) [address] [address] DIFF STATUS Electronic Differential Normal [facility] Comment on above: Performed By: #### L AB980 #### [facility] (DEFAULT) [address] [address] Eosinophils (Bld) [#/Vol] 0.08 10*3/uL Normal 0.00-0.42 [facility] Comment on above: Performed By: #### L AB980 #### [facility] (DEFAULT) [address] [address] Eosinophils/100 WBC (Bld) 1.2 % Normal [facility] Comment on above: Performed By: #### L AB980 #### [facility] (DEFAULT) [address] [address] Hematocrit (Bld) [Volume fraction] 40.1 % Normal 34.9-44.3 [facility] Comment on above: Performed By: #### L AB980 #### [facility] (DEFAULT) [address] [address] Hemoglobin (Bld) [Mass/Vol] 12.6 g/dL Normal 11.4-15.2 [facility] Comment on above: Performed By: #### L AB980 #### [facility] (DEFAULT) [address] [address] Immature Grans % 0.5 % Normal [facility] Comment on above: Performed By: #### L AB980 #### [facility] (DEFAULT) [address] [place] [address] Immature Grans Absolute < Normal <=0.08 [facility] Comment on above: Performed By: #### L AB980 #### [facility] (DEFAULT) [address] [place] [address] Lymphocytes (Bld) [#/Vol] 2.05 10*3/uL Normal 1.16-3.51 [facility] Comment on above: Performed By: #### L AB980 #### [facility] (DEFAULT) [address] [place] [address] Lymphocytes/100 WBC (Bld) 31.6 % Normal [facility] Comment on above: Performed By: #### L AB980 #### [facility] (DEFAULT) [address] [place] [address] MCV (RBC) [Entitic vol] 86.6 fL Normal 79.6-97.7 [facility] Comment on above: Performed By: #### L AB980 #### [facility] (DEFAULT) [address] [address] Mean Cell Hgb 27.2 pg Normal 25.9-33.9 [facility] Comment on above: Performed By: #### L AB980 #### [facility] (DEFAULT) [address] [place] [address] Mean Cell Hgb Conc 31.4 g/dL Normal 31.4-35.9 [facility] Comment on above: Performed By: #### L AB980 #### [facility] (DEFAULT) [address] [place] [address] Monocytes (Bld) [#/Vol] 0.47 10*3/uL Normal 0.22-0.87 [facility] Comment on above: Performed By: #### L AB980 #### [facility] (DEFAULT) [address] [place] [address] Monocytes/100 WBC (Bld) 7.3 % Normal [facility] Comment on above: Performed By: #### L AB980 #### [facility] (DEFAULT) [address] [address] Nucleated RBC 0.0 /100 WBC Normal <=0.2 [facility] Comment on above: Performed By: #### L AB980 #### [facility] (DEFAULT) [address] [address] Platelet mean volume (Bld) [Entitic vol] 9.3 fL Normal 8.5-12.2 [facility] Comment on above: Performed By: #### L AB980 #### [facility] (DEFAULT) [address] [address] Platelets (Bld) [#/Vol] 370 10*3/uL Normal 150-393 [facility] Comment on above: Performed By: #### L AB980 #### [facility] (DEFAULT) [address] [address] RBC (Bld) [#/Vol] 4.63 10*6/uL Normal 3.91-5.04 [facility] Comment on above: Performed By: #### L AB980 #### [facility] (DEFAULT) [address] [address] RBC Distribution 14.0 % Normal 10.8-14.9 [facility] Comment on above: Performed By: #### L AB980 #### [facility] (DEFAULT) [address] [address] Segs + Bands Auto 58.8 % Normal [facility] Comment on above: Performed By: #### L AB980 #### [facility] (DEFAULT) [address] [address] Segs + Bands,Absolute Auto 3.81 K/uL Normal 1.64-7.28 [facility] Comment on above: Performed By: #### L AB980 #### [facility] (DEFAULT) [address] [place] [address] WBC (Bld) [#/Vol] 6.48 10*3/uL Normal 3.99-11.19 [facility] Comment on above: Performed By: #### L AB980 #### [facility] (DEFAULT) [address] [place] [address] FERRITINon 03-06-2024 Ferritin [Mass/Vol] 9.1 ng/mL Normal 7.3-270.7 [facility] Comment on above: Performed By: #### F ERIB, TSHQR #### [facility] (DEFAULT) [address] [place] [address] HEPATIC FUNCTION PANELon Albumin [Mass/Vol] 4.3 g/dL Normal 3.5-5.0 [facility] Comment on above: Performed By: #### H PAULO, IRBC #### [facility] (DEFAULT) [address] [place] [address] ALP [Catalytic activity/Vol] 87 U/L Normal 32-126 [facility] Comment on above: Performed By: #### H PAULO, IRBC #### [facility] (DEFAULT) [address] [place] [address] ALT [Catalytic activity/Vol] 28 U/L Normal 9-48 [facility] Comment on above: Performed By: #### H FP, IRBC #### [facility] (DEFAULT) [address] [place] [address] AST [Catalytic activity/Vol] 27 U/L Normal 10-39 [facility] Comment on above: Performed By: #### H FP, IRBC #### [facility] (DEFAULT) [address] [place] [address] Bilirubin [Mass/Vol] 0.4 mg/dL Normal <1.5 [facility] Comment on above: Performed By: #### H FP, IRBC #### [facility] (DEFAULT) [address] [place] [address] Bilirubin.indirect [Mass/Vol] 0.1 mg/dL Normal <0.3 [facility] Comment on above: Performed By: #### H PAULO, IRBC #### [facility] (DEFAULT) [address] [address] Protein [Mass/Vol] 6.9 g/dL Normal 6.4-8.3 [facility] Comment on above: Performed By: #### Sukumar BATES, IRBC #### [facility] (DEFAULT) [address] [address] IRON/IRON BINDING/TRANSFERRI Non 03-06-2024 Iron [Mass/Vol] 55 ug/dL Normal 40-174 [facility] Comment on above: Performed By: #### Sukumar BATES, IRBC #### [facility] (DEFAULT) [address] [address] Iron Saturation 13 % Low 20-55 [facility] Comment on above: Performed By: #### Sukumar BATES, IRBC #### [facility] (DEFAULT) [address] [address] Total Iron Binding Capacity 440 mcg/dL High 250-425 [facility] Comment on above: Performed By: #### Sukumar BATES, IRBC #### [facility] (DEFAULT) [address] [address] Transferrin [Mass/Vol] 352 mg/dL Normal 200-400 [facility] Comment on above: Performed By: #### Sukumar BATES, IRBC #### [facility] (DEFAULT) [address] [address] MOLECULAR STOOL PARASITE GUEVARA Cindy 03-06-2024 Cryptosporidium Parvum/Hominis By Pcr Negative Normal Negative [facility] Comment on above: Order Comment: Colle [...] Performed By: #### S CPBP #### [facility] (DEFAULT) [address] [address] Entamoeba Histolytica By Pcr Negative Normal Negative [facility] Comment on above: Order Comment: Colle [...] Performed By: #### S CPBP #### [facility] (DEFAULT) [address] [address] Giardia Lamblia By Pcr Negative Normal Negative [facility] Comment on above: Order Comment: Colle [...] Performed By: #### S CPBP #### [facility] (DEFAULT) [address] [address] TSH W/FT4 REFLEXon TSH 1.986 uIU/mL Normal 0.550-4.780 [facility] Comment on above: Performed By: #### F ERIB, TSHQR #### [facility] (DEFAULT) [address] [address] VITAMIN D (25-HYDROXY,TOTAL) on 03-06-2024 25-OH Vitamin D Total 22.2 ng/mL Low 30.0-100.0 [facility] Comment on above: Order Comment: Vitam in D values have been shown to be falsely decreased in lipemic samples and should be interpreted with caution. Result Comment: <10 Deficiency 10-29 Insufficiency 30-100 Optimal Level >100 Possible Toxicity Performed By: #### D 25OH #### [facility] ([facility] [address] [place] [address] BACTERIAL VAGINOSIS NAATon 0 02-27-2024 Interpretation and review of laboratory results Normal [facility] Lactobacillus crispatus+gasseri+riri senii + Gardnerella vaginalis + Atopobium vaginae rRNA JOSÉ MIGUEL+probe Ql (Vag fld) Negative Negative for bacterial vaginosis [facility] Lactobacillus crispatus+gasseri+riri senii + Gardnerella vaginalis + Atopobium vaginae rRNA JOSÉ MIUGEL+probe Ql (Vag fld) Negative Normal Negative for bacterial vaginosis [facility] Comment on above: Order Comment: Speci men Type: SWABOrdering Facility: [facility] Address: [address] [place] [address] Performed By: #### B VAMP, CVTV ####[facility] [id number] [place] [address] [place] BETY/TRICHOMONAS NAATon 0 02-27-2024 C. glabrata RNA JOSÉ MIGUEL+probe Ql (Vag fld) Negative Negative for Bety glabrata [facility] Bety sp DNA JOSÉ MIGUEL+probe Ql (Vag fld) Negative Negative for Bety species [facility] Interpretation and review of laboratory results Normal [facility] T. vaginalis DNA JOSÉ MIGUEL+probe Ql (Unsp spec) Negative Negative for Trichomonas vaginalis by amplification [facility] C. glabrata RNA JOSÉ MIGUEL+probe Ql (Vag fld) Negative Normal Negative for Bety glabrata [facility] Comment on above: Order Comment: Speci men Type: SWABOrdering Facility: [facility] Address: [address] [place] [address] Performed By: #### B VAMP, CVTV ####[facility] [id number] [place] [address] [place] Bety sp DNA JOSÉ MIGUEL+probe Ql (Vag fld) Negative Normal Negative for Bety species [facility] Comment on above: Order Comment: Speci men Type: SWABOrdering Facility: [facility] Address: [address] [place] [address] Performed By: #### B VAMP, CVTV ####[facility] [id number] [address] [place] T. vaginalis DNA JOSÉ MIGUEL+probe Ql (Unsp spec) Negative Normal Negative for Trichomonas vaginalis by amplification [facility] Comment on above: Order Comment: Speci men Type: SWABOrdering Facility: [facility] Address: [address] [place] [address] Performed By: #### B VAMP, CVTV ####[facility] [id number] [address] [place] CNOVon 02-27-2024 CNOV Office Visit (SHERON ) MARY LEAL ([id number]) 1970 F Date Time Provider Department 02/27/24 10:00 AM FLOWER LOPEZ During your visit today, we recorded the following information about you: Pulse Blood pressure Weight Height 62/minute 146/93 69.9 kg 1.626 Flower Zhao APRN.FBI SPECIAL AGENT 02/27/2024 10:40 AM Signed Female Pelvic Medicine [...] intermittently- somewhat improved. She has worked with [employer] rep re: interstim setting, now on program [...] strong sense of urgency and have to mahcuca to the bathroom to have a bowel [...] you received about pain medications helpful? Yes Buzzsaw Operator Helper offered:Patient declines OBJECTIVE: BP 146/93 Pulse 62 [...] (more content not included)... Normal [facility] UA DIP, URINE (POC)on 2023 BILIRUBIN UA (POCT) Negative Negative [facility] CLARITY UA (POCT) Clear [facility] COLOR UA (POCT) Yellow [facility] GLUCOSE UA (POCT) Negative Negative mg/dL [facility] Hemoglobin Ql (U) Negative Negative [facility] KETONE UA (POCT) Negative Negative mg/dL [facility] LEUKOCYTES UA (POCT) Negative Negative [facility] NITRITE UA (POCT) Negative Negative [facility] PH UA (POCT) 5.5 4.5 - 8.0 [facility] Protein Ql (U) Negative Negative mg/dL [facility] SPECIFIC GRAVITY UA (POCT) >=1.030 1.005 - 1.030 [facility] UROBILINOGEN UA (POCT) 0.2 Normal E.U./dL [facility] Location:[facility], [address] [place] [address], [address] [place] [address] POINT OF CARE [facility] 29on 02-07-2024 29 Addended by: NATHANAEL MENDOZA on: 02/07/2024 12:01 PM Modules accepted: Orders [facility] Follow-Upon 02-07-2024 Follow-Up [id number] Darrian Leal 1970 F Date Provider Department Center 02/07/2024 PAULINE SANTACRUZ [facility] SLEEP [facility] No family history on file Level of Service:16766 UT OFFICE/OUTPATIENT ESTABLISHED HIGH MDM 40 MIN Reason for Visit and Comments: Follow-up [237985] - Pt is here to activate her Inspire PAP. [facility] Hussain 01-27-2024 CNPN Telephone (GYNMN) MARY LEAL ([id number]) 1970 F Date Time Provider Department 01/27/24 RADHA DUNHAM During your visit today, we recorded the following information about you: Radha Dunham MD 01/27/2024 10:54 AM Signed Drawer In Jacquard Loom Resident Telephone Encounter 01/27/2024 10:44 AM Call [...] Discussed with Dr. Mullins, Urogyn fellow physician industrial conveyor belt repairer. Radha Dunham MD Obstetrics and Gynecology, PGY1 [...] PM Signed Received fax regarding letter from [employer] stating that on 01/29/24 the patient reported that they felt a zapping sensation in their rectal nerve . Asking that provider answer questions listed on document. Document scanned into mangofizz jobs. Kelli Seth Sandra K, RN 03/15/2024 11:27 AM Signed Called pt. Verified name/ Verified requested information and form faxed to [employer] @ [phone] Liil Matias RN March 15, 2024 11:27 AM [...] (more content not included)... Normal [facility] ANES POSTPROC EVALon 024 ANES POSTPROC EVAL HNO ID: [id number] Author: BONI MURILLO MD Service: ? Author Type: Anesthesiologist Type: Anesthesia Postprocedure Evaluation Filed: 01/26/2024 09:51 Note Text: POST ANESTHESIA EVALUATION NOTE : 1970 Procedure Summary Date: 01/26/24 Room / Location: [address] [facility] Anesthesia Start: 0728 Anesthesia Stop: 09 Procedures: INSRT NSTIM GENERATOR [...] January 26, 2024 TIME: 9:51 AM CSN: [id number] Normal [facility] ANES PRE-OPon 01-26-2024 ANES PRE-OP HNO ID: [id number] Author: BONI MURILLO MD Service: ? Author [...] January 26, 2024 TIME: 7:06 AM CSN: [id number] Normal [facility] BRIEF OP NOTon 01-26-2024 BRIEF OP NOT HNO ID: [id number] Author: SOFIYA MULLINS MD Service: Urogynecology Author Type: Fellow Type: Brief Op Note Filed: 01/26/2024 08:44 Note Text: BRIEF OPERATIVE / PROCEDURE NOTE LOG ID: [id number] Surgery/Procedure Date: 01/26/2024 Incision/Procedure Start Time: 7:54 AM Incision Close/Procedure End Time: 8:36 AM Surgeon(s)/Procedurali st(s) and Creative Writer(s): Surgeon(s) and Role: * Pam Wang MD [...] Implant Name Type Inv. Item Serial No. Mental Health Counselor Lot No. LRB No. Used Action LEAD INTRSTIM MRI 28CM - [id number] Lead LEAD INTRSTIM MRI 28CM [employer] [id number] Left 1 Implanted INTERSTIM X RECHARGE FREE NEUROSTIMULATOR - [id number] Stimulator INTERSTIM X RECHARGE FREE NEUROSTIMULATOR [id number] [employer] Left 1 Implanted Pre-Op/Pre-Procedure Diagnosis: urinary retention, urgency, frequency and nocturia Post-Op/Post-Procedure Diagnosis: same SIGNATURE: Sofiya Mullins MD DATE: January 26, 2024 PATIENT NAME: Mary Leal TIME: 8:42 AM PAGER/CONTACT #: Pager [phone] Normal [facility] HISTORY PHYSICALon HISTORY PHYSICAL HNO ID: [id number] Author: SOFIYA MULLINS MD Service: Urogynecology Author [...] (more content not included)... Normal [facility] NURSING PROGon 01-26-2024 NURSING PROG HNO ID: [id number] Author: DAI CAMPUZANO, RN Service: Nursing Author Type: Registered Nurse Type: Nursing Progress Note Filed: 01/26/2024 09:51 Note Text: 09 Paged PACU Resident 2-30 Elvis- Could you please place an order for a one time dose of her home[place] [phone] Paged PACU Resident 2-30 Elvis- Could you please place an order for a one time dose of her home[place]? [place] [id number] Normal [facility] [facility] NUR[facility] HNO ID: [id number] Author: CATRACHO PIERRE RN Service: ? Author Type: Registered Nurse Type: Nursing Progress Note Filed: 01/26/2024 06:41 Note Text: Nursing Progress Note Topic of Note: Daily Note PATIENT NAME: Mary Leal Patient Location: Main - Periop OR/Main - Periop OR Room: Main - Periop OR (23-37) PAGE SENT: Akiko Wang and Resident air conditioning equipment mechanic-Pt in M23-37 Mary Leal will need informed consent and H AND P for surgery this morning. Thanks, Catracho [phone] This note was completed by: Catracho Pierre [facility] OPERATIVE NOon 01-26-2024 OPERATIVE NO HNO ID: [id number] Author: PAM WANG MD Service: Urogynecology Author Type: Physician Type: Operative Report Filed: 01/29/2024 10:50 Note Text: OPERATIVE/PROCEDURE REPORT LOG ID: [id number] Surgery/Procedure Date: 01/26/2024 Incision/Procedure Start Time: 7:54 AM Incision Close/Procedure End Time: 8:36 AM Surgeon(s)/Procedurali st(s) and Creative Writer(s): Surgeon(s) and Role: * Pam Wang MD [...] Implant Name Type Inv. Item Serial No. Mental Health Counselor Lot No. LRB No. Used Action LEAD INTRSTIM MRI 28CM - [id number] Lead LEAD INTRSTIM MRI 28CM [employer] [id number] Left 1 Implanted INTERSTIM X RECHARGE FREE NEUROSTIMULATOR - [id number] Stimulator INTERSTIM X RECHARGE FREE NEUROSTIMULATOR [id number] [employer] Left 1 Implanted Pre-Op/Pre-Procedure Diagnosis: [...] the S3 foramen until the marker was group home through the bone. The sacral lead was [...] (more content not included)... Normal [facility] HISTORY PHYSICALon HISTORY PHYSICAL HNO ID: [id number] Author: MAX MARROQUIN PA-C Service: ? Author Type: Physician Creative Writer Type: H&P Filed: 01/25/2024 09:25 Note Text: PREANESTHESIA CONSULT CLINIC TELEHEALTH VISIT SERVICE DATE: 01/25/2024 SERVICE TIME: 9:02 AM Patient has been identified by name and date of : Yes Reason for contact: PACC visit Accompanied by: Self This is a virtual visit using [employer] Video Visit. It required patient-provider interaction for the medical decision making as documented below. I have communicated my name and active licensure. The patient's identity and physical location were verified at the time of this visit. Either the patient or their legal construction sales representative has been informed of the [...] using inspire to get activated 02/07/2024 ) [id number] Score: Age: <65 Sex: female CHF history: No Hypertension history: Yes Stroke/TIA/thromboembo lism history: No Vascular disease history: No Diabetes history: No [id number] Score: 2 ANESTHESIA FINDINGS: Intubation History: No [...] PAST SURGICAL HIST (more content not included)... [facility] Hussain 12-25-2023 [facility] Telephone (GYNMN) ELVISMARY ([id number]) 1970 F Date Time Provider Department 12/25/23 PAM WANGMN During your visit today, we recorded the following information about you: HenriTeganDenisse Bowman 12/25/2023 2:54 PM Signed Reason for call: [...] distance health visit in this department: 10/25/2021 Community Association Manager, Nurse Next visit in this department: [...] - Fully Assessed Reason for Visit: Question [3967] Prescriptions as of 12/25/2023 - ARIPiprazole monohydrate [...] STACIE GONZALEZ on 12/25/23 Normal [facility] BASIC METABOLIC PANLon 12-20 Anion gap [Moles/Vol] 6 mmol/L Normal 5-15 [facility] Comment on above: Performed By: #### B MP #### [facility] ([id number]) [address], [address] [place] [address] Calcium [Mass/Vol] 9.3 mg/dL Normal 8.5-10.5 [facility] Comment on above: Performed By: #### B MP #### [facility] ([id number]) [address], [address] [place] [address] Chloride [Moles/Vol] 105 mmol/L Normal 98-109 [facility] Comment on above: Performed By: #### B MP #### [facility] ([id number]) [address], [address] [place] [address] CO2 [Moles/Vol] 28 mmol/L Normal 22-32 [facility] Comment on above: Performed By: #### B MP #### [facility] ([id number]) [address], [address] [place] [address] Creatinine [Mass/Vol] 0.60 mg/dL Normal 0.40-1.00 [facility] Comment on above: Result Comment: METH OD TRACEABLE TO IDMS STANDARD Performed By: #### B MP #### [facility] ([id number]) [address], [address] [place] [address] eGFR (CKD-EPI) NON-RACE DEPENDENT >90 Normal >59 [facility] Comment on above: Result Comment: Reported eGFR is based on the CKD-EPI 2020 equation that does not use a race coefficient. Performed By: #### B MP #### [facility] ([id number]) [address], [address] [place] [address] Glucose [Mass/Vol] 85 mg/dL Normal 65-99 [facility] Comment on above: Performed By: #### B MP #### [facility] ([id number]) [address] [address] [place] [address] Potassium [Moles/Vol] 4.2 mmol/L Normal 3.5-5.0 [facility] Comment on above: Performed By: #### B MP #### [facility] ([id number]) [address], [address] [place] [address] Sodium [Moles/Vol] 139 mmol/L Normal 134-146 [facility] Comment on above: Performed By: #### B MP #### [facility] ([id number]) [address], [address] [place] [address] Urea nitrogen [Mass/Vol] 14 mg/dL Normal 5-23 [facility] Comment on above: Performed By: #### B MP #### [facility] ([id number]) [address] [place] [address] Basic Metabolic Panelon 12-07 Anion gap [Moles/Vol] 6 mmol/L 5 - 15 mmol/L [facility] Calcium [Mass/Vol] 9.3 mg/dL 8.5 - 10. 5 mg/dL [facility] Chloride [Moles/Vol] 105 mmol/L 98 - 10 9 mmol/L [facility] CO2 [Moles/Vol] 28 mmol/L 22 - 32 mmol/L [facility] Creatinine [Mass/Vol] 0.60 mg/dL 0.40 - 1.00 mg/dL [facility] Comment on above: METHOD TRACEABLE TO IDMS STANDARD eGFR (CKD-EPI)non-race dependent - PINF [facility] Comment on above: Reported eGFR is based on the CKD-EPI 2020 equation that does not use a race coefficient. Glucose [Mass/Vol] 85 mg/dL 65 - 99 mg/dL [facility] Potassium [Moles/Vol] 4.2 mmol/L 3.5 - 5.0 mmol/L [facility] Sodium [Moles/Vol] 139 mmol/L 134 - 146 mmol/L [facility] Urea nitrogen [Mass/Vol] 14 mg/dL 5 - 23 mg/dL [facility] CNPNon 11-27-2023 CNPN Telephone (WCTRMN) MARY LEAL ([id number]) 1970 F Date Time Provider Department 11/27/23 PAM WANG WCTRMN During your visit today, we recorded the following information about you: Amber Trimble 11/27/2023 9:32 AM Signed Patient: Mary Leal : 1970 Provider: Pam Wang MD Caller Phone #: [phone] (home) [phone] (cell) Reason for call: boyfriend pulled out [...] PNE stimulator stopped connecting so [facility] [place] said to remove it. She removed the [...] urge [N39.41] Order(s):SURGICAL REQUEST - ELECTIVE (06/2020) [[id number]] Order #: [id number]: 1 Prescriptions as of 11/27/2023 - ARIPiprazole [...] Encounter Status:Closed by PAM WANG on 11/27/23 [facility] 11-25-2023 CNPN Telephone (GYNMN) ELVISMARY Keys ([id number]) 1970 F Date Time Provider Department 11/25/23 RADHA DUNHAM G[place]FIE During your visit today, we recorded the following information about you: Radha Dunham MD 11/25/2023 2:43 PM Signed Drawer In Jacquard Loom Resident Telephone Encounter 11/25/2023 2:40 PM Call [...] adequately. Discussed with Dr. Mullins, Urogyn fellow industrial conveyor belt repairer. Radha Dunham MD Obstetrics and Gynecology, PGY1 Allergies As of Date: 11/25/2023 Noted Allergy Reaction RISPERIDONE 07/27/2021 5 - Intolerance Comments: Breast discharge POISON BRENDA EXTRACT 04/06/2023 2 - Rash Date Reviewed: 10/10/2023 Reviewed by: José Luis Thorpe RN - Fully Assessed Reason for Visit: Patient Question [1477] Prescriptions as of 11/25/2023 - ARIPiprazole monohydrate [...] Encounter Status:Closed by RADHA DUNHAM on 11/25/23 [facility] Teodoro 11-21-2023 ANANDA Office Visit (SHERON ) MARY LEAL ([id number]) 1970 F Date Time Provider Department 11/21/23 10:00 AM PAM WANG During your visit today, we recorded the following information about you: Pam Wang MD 11/21/2023 5:03 PM Signed Patient: Mary oZyaReno Elvis Date of Service: 11/21/2022 UNIVERSAL PROTOCOL [...] Voiding dysfunction [N39.8] Order(s):UA DIP, URINE (POC) [[id number]] Order #: [id number]. #:[id number] [] ondansetron orally disintegrating 4 mg tab(s) [...] (more content not included)... Normal [facility] CNOVon 10-10-2023 CNOV Office Visit (SHERON ) MARY LEAL ([id number]) 1970 F Date Time Provider Department 10/10/23 [...] PFSH obtained by others. Pam Wang MD Buzzsaw Operator Helper offered: Patient declines. OBJECTIVE: BP 102/60 General: [...] would like to move forward with PNE. [employer] packet given to patient today to review. [...] which included preparing to see the patient, [id number] patient care, completing clinical (more content not included)... Normal [facility] CNPNon 09-12-2023 CNPN Telephone (WHQ) DENVER LEALISTEN Zoya ([id number]) 1970 F Date Time Provider Department 09/12/23 [...] which included preparing to see the patient, [id number] patient care, completing clinical documentation, obtaining and/or [...] Office will call to schedule cystoscopy. Urogynecology [facility] provided: Pam Wang Staff Physician, Department [...] Diagnosis:History of suburethral sling procedure [Z98.890] Order(s):CYSTOSCOPY [facility] [[id number]] Order #: [id number] Prescriptions as of 09/12/2023 - atenolol (TENORMIN) [...] (more content not included)... Normal [facility] CNOVon 09-11-2023 CNOV Office Visit (UROSMN ) ELVISMARY Zoya ([id number]) 1970 F Date Time Provider Department 09/11/23 [...] Jenifer Barry RN 09/11/2023 11:37 AM Signed [facility] [...] allergy: No Females- Is patient : No Buzzsaw Operator Helper offered:Patient declines B/O UA: YES DIP: UROFLOWMETRY [...] Jairon Lai MD 09/11/2023 1:18 PM Signed [facility] FOR [...] Jairon Lai MD Referring Provider: PAM WANG [[id number]] Allergies As of Date: 09/11/2023 Noted Allergy [...] (more content not included)... Normal [facility] BASIC METABOLIC PANELon 10-0 Anion gap [Moles/Vol] 1 mmol/L Low 8-12 [facility] Comment on above: Performed By: #### 4 [id number], [id number], [id number], [id number] #### [address] [place] [address] [place] Calcium [Mass/Vol] 9.2 mg/dL Normal 8.4-10.4 [facility] Comment on above: Performed By: #### 4 [id number], [id number], [id number], [id number] #### [address] [place] [address] [place] Chloride [Moles/Vol] 105 mmol/L Normal 96-109 [facility] Comment on above: Performed By: #### 4 [id number], [id number], [id number], [id number] #### [address] [place] [address] [place] CO2 [Moles/Vol] 32 mmol/L High 22-30 [facility] Comment on above: Performed By: #### 4 [id number], [id number], [id number], [id number] #### [address] [place] [address] [place] Creatinine [Mass/Vol] 0.67 mg/dL Normal 0.52-1.04 [facility] Comment on above: Performed By: #### 4 [id number], [id number], [id number], [id number] #### [address] [address] [place] GLOMERULAR FILTRATION RATE ML/MIN/1.73 SQ M.PREDICTED >90.0 Normal >=60.0 [facility] Comment on above: Result Comment: [...] Kidney Int Suppl.2013;3:1-150 Performed By: #### 4 [id number], [id number], [id number], [id number] #### [address] [place] [address] Glucose [Mass/Vol] 104 mg/dL High 65-100 [facility] Comment on above: Performed By: #### 4 [id number], [id number], [id number], [id number] #### [address] [address] [facility] Potassium [Moles/Vol] 4.6 mmol/L Normal 3.6-5.1 [facility] Comment on above: Performed By: #### 4 [id number], [id number], [id number], [id number] #### [address] [place] [address] [facility] Sodium [Moles/Vol] 138 mmol/L Normal 135-147 [facility] Comment on above: Performed By: #### 4 [id number], [id number], [id number], [id number] #### [address] [place] [address] [facility] Urea nitrogen [Mass/Vol] 16 mg/dL Normal 8-26 [facility] Comment on above: Performed By: #### 4 [id number], [id number], [id number], [id number] #### [address] Basic metabolic panel aka Ch em 8on 08-12-2023 Anion gap [Moles/Vol] 1 mmol/L Low 8 - 12 mmol/L [facility] Calcium [Mass/Vol] 9.2 mg/dL 8.4 - 10. 4 mg/dL [facility] Calcium hydrogen phosphate dihydrate crystals LM Ql (Urine sed) 16 mg/dL 8 - 26 mg/dL [facility] Chloride [Moles/Vol] 105 mmol/L 96 - 10 9 mmol/L [facility] CO2 (BldMV) [Moles/Vol] 32 mmol/L High 22 - 30 mmol/L [facility] Creatinine [Mass/Vol] 0.67 mg/dL 0.52 - 1.04 mg/dL [facility] GFR/1.73 sq M.predicted MDRD (S/P/Bld) [Vol rate/Area] - PINF [facility] Comment on above: eGFR calculation [...] 104 mg/dL High 65 - 100 mg/dL [facility] Interpretation and review of laboratory results Abnormal [facility] Potassium [Moles/Vol] 4.6 mmol/L 3.6 - 5.1 mmol/L [facility] Sodium [Moles/Vol] 138 mmol/L 135 - 147 mmol/L [facility] CBC AND DIFFERENTIALon 08-12 ABSOLUTE BASOPHIL 0.0 x10*3/uL Normal 0.0-0.1 [facility] Comment on above: Performed By: #### 4 [id number] #### [address] ABSOLUTE EOSINOPHIL 0.1 x10*3/uL Normal 0.1-0.3 [facility] Comment on above: Performed By: #### 4 [id number] #### [address] ABSOLUTE IMMATURE GRANULOCYTES 0.0 x10*3/uL Normal 0.0-0.1 [facility] Comment on above: Performed By: #### 4 [id number] #### [address] ABSOLUTE LYMPH 1.6 x10*3/uL Normal 1.2-3.3 [facility] Comment on above: Performed By: #### 4 [id number] #### [address] ABSOLUTE MONO 0.3 x10*3/uL Normal 0.2-0.6 [facility] Comment on above: Performed By: #### 4 [id number] #### [address] ABSOLUTE NEUTROPHIL 3.1 x10*3/uL Normal 2.4-6.6 [facility] Comment on above: Performed By: #### 4 [id number] #### [address] Basophils/100 WBC (Bld) 0.8 % Normal [facility] Comment on above: Performed By: #### 4 [id number] #### [address] Eosinophils/100 WBC (Bld) 2.7 % Normal [facility] Comment on above: Performed By: #### 4 [id number] #### [address] Erythrocyte distribution width (RBC) [Ratio] 13.0 % Normal 11.5-14.5 [facility] Comment on above: Performed By: #### 4 [id number] #### [address] Hematocrit (Bld) [Volume fraction] 37.5 % Normal 33.6-46.8 [facility] Comment on above: Performed By: #### 4 [id number] #### [address] Hemoglobin (Bld) [Mass/Vol] 11.8 g/dL Normal 11.7-15.8 [facility] Comment on above: Performed By: #### 4 [id number] #### [address] Immature granulocytes/100 WBC (Bld) 0.4 % Normal [facility] Comment on above: Performed By: #### 4 [id number] #### [address] Lymphocytes/100 WBC (Bld) 31.5 % Normal [facility] Comment on above: Performed By: #### 4 [id number] #### [address] MCH (RBC) [Entitic mass] 26.5 pg Low 27.5-32.3 [facility] Comment on above: Performed By: #### 4 [id number] #### [address] MCHC (RBC) [Mass/Vol] 31.5 g/dL Normal 30.7-35.5 [facility] Comment on above: Performed By: #### 4 [id number] #### [address] MCV (RBC) [Entitic vol] 84.3 fL Normal 80.2-99 [facility] Comment on above: Performed By: #### 4 [id number] #### [address] Monocytes/100 WBC (Bld) 5.4 % Normal [facility] Comment on above: Performed By: #### 4 [id number] #### [address] Neutrophils/100 WBC (Bld) 59.2 % Normal [facility] Comment on above: Performed By: #### 4 [id number] #### [address] NUCLEATED RED BLOOD CELLS AUTO 0.0 % Normal 0.0-1.0 [facility] Comment on above: Performed By: #### 4 1105761 #### [address] PLATELET COUNT 299 x10*3/uL Normal 150-400 [facility] Comment on above: Performed By: #### 4 [id number] #### [address] RED BLOOD CELL COUNT 4.45 x10*6/uL Normal 3.60-5.20 [facility] Comment on above: Performed By: #### 4 [id number] #### [address] WHITE BLOOD CELLS 5.2 x10*3/uL Normal 4.3-10.3 [facility] Comment on above: Performed By: #### 4 [id number] #### [address] CBC with differentialOrdered By: Background Lab on 08-12-2023 Absolute Immature Granulocytes 0.0 [facility] Age [Time] 84.3 fL 80.2 - 99 fL [facility] Age [Time] 26.5 pg Low 27.5 - 32.3 pg [facility] Age [Time] 31.5 g/dL 30.7 - 35.5 g/dL [facility] B. burgdorferi IgM IB Ql (CSF) 31.5 % [facility] Basophils (Bld) [#/Vol] 0.0 10*3/uL [facility] Basophils/100 WBC (Body fld) 0.8 % [facility] Eosinophils (Bld) [#/Vol] 1.6 10*3/uL [facility] Eosinophils (Bld) [#/Vol] 0.3 10*3/uL [facility] Eosinophils (Bld) [#/Vol] 0.1 10*3/uL [facility] Eosinophils/100 WBC (Bld) 2.7 % [facility] Erythrocyte distribution width (RBC) [Ratio] 13.0 % 11.5 - 14.5 % [facility] Hematocrit (Bld) [Volume fraction] 37.5 % 33.6 - 46.8 % [facility] Hexanoylglycine (U) [Moles/Vol] 11.8 g/dL 11.7 - 15.8 g/dL [facility] Immature granulocytes/100 WBC (Bld) 0.4 % [facility] Interpretation and review of laboratory results Abnormal [facility] Monocytes/100 WBC (Bld) 5.4 % [facility] Neurotensin (P) [Mass/Vol] 59.2 % [facility] Neutrophils (Bld) [#/Vol] 3.1 10*3/uL [employer] Nucleated RBC/100 WBC (Bld) [Ratio] 0.0 % 0.0 - 1.0 % [employer] Platelets (Bld) [#/Vol] 299 10*3/uL [facility] RBC (Bld) [#/Vol] 4.45 10*6/uL [employer] WBC (Bld) [#/Vol] 5.2 10*3/uL [facility] CT ABDOMEN PELVIS WITH IV CO [...] 20 RAC Omni 300 100 ml Normal [employer] [facility] HEPATIC FUNCTION PANELon Albumin [Mass/Vol] 4.0 g/dL Normal 3.5-5.0 [facility] Comment on above: Performed By: #### 4 [id number], [id number], [id number], [id number] #### [address] [place] [address] ALK PHOS 104 U/L Normal 24-126 [facility] Comment on above: Performed By: #### 4 [id number], 99790373, [id number], [id number] #### [address] ALT [Catalytic activity/Vol] 50 U/L High 4-35 [facility] Comment on above: Performed By: #### 4 [id number], [id number], [id number], [id number] #### [address] [address] AST [Catalytic activity/Vol] 59 U/L High 3-47 [facility] Comment on above: Performed By: #### 4 8285056, [id number], 06830489, [id number] #### [address] [address] Bilirubin [Mass/Vol] 0.1 mg/dL Low 0.2-1.6 [facility] Comment on above: Performed By: #### 4 [id number], [id number], [id number], [id number] #### [address] Bilirubin.indirect [Mass/Vol] 0.1 mg/dL Normal <=0.5 [facility] Comment on above: Performed By: #### 4 9573549, [id number], 64969581, [id number] #### [address] Protein [Mass/Vol] 6.6 g/dL Normal 6.3-8.2 [facility] Comment on above: Performed By: #### 4 [id number], 25441085, 54046564, [id number] #### [address] Hepatic Function Panelon Albumin (Syn fld) [Mass/Vol] 4.0 g/dL 3.5 - 5.0 g/dL [facility] Aldosterone (U) [Mass/Vol] 104 U/L 24 - 126 U/L [facility] ALT [Catalytic activity/Vol] 50 U/L High 4 - 35 U/L [facility] AST [Catalytic activity/Vol] 59 U/L High 3 - 47 U/L [facility] Bilirubin [Mass/Vol] 0.1 mg/dL Low 0.2 - 1 .6 mg/dL [facility] Bilirubin.conjugated [Mass/Vol] 0.1 mg/dL NINF - 0.5 mg/dL [employer] Protein [Mass/Vol] 6.6 g/dL 6.3 - 8.2 g/dL [facility] LIPASEon 08-12-2023 Lipase [Catalytic activity/Vol] 11 U/L Low 23-300 [facility] Comment on above: Performed By: #### 4 [id number], [id number], [id number], [id number] #### [facility] [address] [place] [address] [facility] Lipaseon 08-12-2023 Lipase [Catalytic activity/Vol] 11 U/L Low 23 - 300 U/L [employer] [facility] No Panel Informationon 08-12 Extra Tube Hold for add-ons. [employer] [facility] [employer] Interpretation and review of laboratory results Abnormal [facility] POCT ED/FC/GSC Urine PregOrd ered By: Della Hays on 08-12-2023 Beta HCG ( test) Ql (U) Negative [employer] Interpretation and review of laboratory results Normal [employer] Head Doffer Acceptable yes [facility] TROPONIN Ion 08-12-2023 Troponin I.cardiac [Mass/Vol] ng/mL Normal <=0.033 [facility] Comment on above: Result Comment: Nega tive: No detectable troponin-I. Performed By: #### 4 [id number] #### [address] [address] [place] TROPONIN I SERIESon 08-12-20 Troponin I.cardiac [Mass/Vol] ng/mL Normal <=0.033 [facility] Comment on above: Result Comment: Nega tive: No detectable troponin-I. Performed By: #### 4 [id number], [id number], [id number], [id number] #### [facility] [address] [place] [address] [place] Troponin I (One time)on Interpretation and review of laboratory results Normal [employer] Troponin I.cardiac [Mass/Vol] ng/mL NINF - 0.033 ng/mL [facility] Comment on above: Negative: No detectable troponin-I. [facility] Criptext Troponin I - Series (X 3)on 08-12-2023 Interpretation and review of laboratory results Normal [facility] Troponin I.cardiac [Mass/Vol] ng/mL NINF - 0.033 ng/mL [facility] Comment on above: Negative: No detectable troponin-I. [facility] URINALYSIS WITH REFLEX CULTU REon 08-12-2023 Appearance (U) Clear Normal [facility] Comment on above: Performed By: #### 4 [id number] #### [address] [address] [place] [address] BILIRUBIN UA Negative Normal Negative [facility] Comment on above: Performed By: #### 4 [id number] #### [place] [address] [place] [address] [place] Color (U) Yellow Normal [facility] Comment on above: Performed By: #### 4 [id number] #### [address] Glucose Ql (U) Negative Normal Negative [facility] Comment on above: Performed By: #### 4 [id number] #### [address] Ketones Ql (U) Negative Normal Negative [facility] Comment on above: Performed By: #### 4 [id number] #### [address] LEUKOESTERASE Negative Normal Negative [facility] Comment on above: Performed By: #### 4 [id number] #### [address] MUCOUS-URINE Occasional Normal [facility] Comment on above: Performed By: #### 4 [id number] #### [address] Nitrite Ql (U) Negative Normal Negative [facility] Comment on above: Performed By: #### 4 [id number] #### [place] [address] [place] OCCULT BLD Negative Normal Negative [facility] Comment on above: Performed By: #### 4 [id number] #### [place] [address] [place] PH, URINE 5.0 Normal [facility] Comment on above: Performed By: #### 4 [id number] #### [place] [address] [place] Protein Ql (U) Negative Normal Negative [facility] Comment on above: Performed By: #### 4 [id number] #### [place] [address] [place] [address] RBC LM.HPF (Urine sed) [#/Area] /[HPF] Normal <=5 [facility] Comment on above: Performed By: #### 4 [id number] #### [address] SPECIFIC GRAVITY, URINE 1.025 Normal [facility] Comment on above: Performed By: #### 4 [id number] #### [address] SQUAMOUS EPI CELLS 51 /LPF Normal [facility] Comment on above: Performed By: #### 4 [id number] #### [address] UROBILINOGEN UA Negative Normal <2.0 [facility] Comment on above: Performed By: #### 4 [id number] #### [address] WBC LM.HPF (Urine sed) [#/Area] 2 /[HPF] Normal <=5 [facility] Comment on above: Performed By: #### 4 [id number] #### [address] Urinalysis complete W Reflex Culture panel (U)on 08-12-2023 Acetone [Mass/Vol] Negative Negative [facility] Appearance (Body fld) Clear [facility] Bilirubin Ql (U) Negative Negative [facility] Color (Stone) Yellow [facility] G6PD (RBC) [Catalytic activity/Vol] Negative Negative [facility] Hemoglobin Ql (U) NINF [facility] Leukocyte esterase Test strip Ql (U) Negative Negative [facility] Mucor racemosus IgE Qn (S) Occasional /LPF [facility] Nitrite Test strip (U) [Mass/Vol] Negative Negative [facility] pH (Migue fld) 5.0 [facility] Protein (U) [Mass/Vol] Negative Negative [facility] [place] IgE Qn (S) Negative Negative [facility] Specific gravity (U) [Rel density] 1.025 [facility] Spherocytes LM Ql (Bld) 51 /LPF [facility] Urobilinogen Qn (U) Negative [facility]0 [facility] WBC (U) [#/Vol] 2 /uL LYLEF [facility] CNOVon 07-31-2023 CNOV Office Visit (SHERON ) ELVISMARY RUTLEDGE Zoya ([id number]) 1970 F Date Time Provider Department 07/31/23 2:30 PM NELSY CHÁVEZ During your visit today, we recorded the following information about you: Pulse Blood pressure Weight Height 76/minute 136/96 69.9 kg 1.626 m Nelsy Chávez APRN.[employer] SPECIAL AGENT 07/31/2023 5:35 PM Signed Female Pelvic Medicine [...] new Pain: no Abnormal Vaginal Discharge: no 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 She has no history of an abnormal mammogram with cysts on US LMP: No LMP recorded. Patient has had a hysterectomy.; Menopause 3 years ago; hysterectomy in 2015: Menstrual history: NA; Deliveries: I have confirmed and edited as necessary, the PFSH obtained by others. Nelsy Chávez APRN.FBI SPECIAL AGENT Buzzsaw Operator Helper offered: Patient declines. OBJECTIVE: There were no [...] for now d/t side effects Nelsy Chávez APRN.FBI SPECIAL AGENT I spent a total of 45 minutes on the date of the service which included preparing to see the patient, azof-op-fwtm patient care, completing clinical documentation, performing a [...] [R35.0] Nocturia [R35.1] Order(s):UA DIP, URINE (POC) [[id number]] Order #: [id number] #:[id number] [facility] [[id number]] Order #: [id number] Prescriptions as of 07/31/2023 - atenolol (TENORMIN) [...] (more content not included)... Normal [facility] UA DIP, URINE (POC)on 2022 BILIRUBIN UA (POCT) Negative Negative [facility] CLARITY UA (POCT) Clear [facility] COLOR UA (POCT) Yellow [facility] GLUCOSE UA (POCT) Negative Negative mg/dL [facility] Hemoglobin Ql (U) Negative Negative [facility] KETONE UA (POCT) Negative Negative mg/dL [facility] LEUKOCYTES UA (POCT) Negative Negative [facility] NITRITE UA (POCT) Negative Negative [facility] PH UA (POCT) 5.0 4.5 - 8.0 [facility] Protein Ql (U) Negative Negative mg/dL [facility] SPECIFIC GRAVITY UA (POCT) 1.010 1.005 - 1.030 [facility] UROBILINOGEN UA (POCT) 0.2 E.U./dL Normal E.U./dL [facility] Office Visit (Cardiology)on 06-13-2023 Follow-up visit Diagnoses/Problems Assessed Chest pain (786.50) (R07.9) Elevated troponin (790.6) (R77.8) Fatigue (780.79) (R53.83) Never a smoker Overweight with body mass index (BMI) of 27 to 27.9 in adult (278.02,V85.23) (E66.3,Z68.27) Orders Elevated troponin IO EKG Electrocardiogram- 12 Lead; Status:Active - Perform Order,Retrospective Authorization; Requested for:[id number]; Overweight with body mass index (BMI) of 27 to 27.9 in adult Healthy Weight Tips; Status:Complete - Retrospective Authorization; Done: [id number] Some eating tips that can help you lose weight.; Status:Complete - Retrospective Authorization; Done: [id number] SocHx: Never a smoker Tobacco Use Screening; Status:Complete; Done: [id number] Patient Instructions Please bring all medicines, vitamins, [...] of which are currently being investigated at [facility] (now her fourth GI specialist). Last year while in [place] she had similar issues with elevated troponins in the ED and underwent heart catheterization that did not reveal any specific significant disease, details of the discharge summary are reviewed She underwent recent stress perfusion imaging at [facility], the report is reviewed, she [...] disease, will investigate the troponin rise at [facility] however I believe this is likely a non-[place] troponin elevation, likely associated with underlying inflammatory [...] negative for complaint. Vitals Vital Signs Recorded: [id number] 10:37AM Heart Rate70, Apical Kzfoyhds369, RUE, Sitting Bnbrsmqqt44, RUE, Sitting Height5 ft 4 in Xkzhhm525 lb BMI Wqxtisycav74.46 kg/m2 BSA Calculated1.78 Tobacco Useb) No PHQ-2 [...] Screening.on 023 Adult depression screening assessment No [facility] [address] DO Work Phone: Adult depression screening assessment Yes [facility] [address] DO Work Phone: Adult depression screening assessment Moderate (10-14) [facility] [facility] DO Work Phone: Fall risk assessment a) No falls within the last year [facility] [address] DO Work Phone: Tobacco use status CP b) No [facility] [address] DO Work Phone: Tobacco Screening. 1-Several days On license of [facility] [address] DO Work Phone: Tobacco Screening. 3-Nearly every day [facility] [address] DO Work Phone: Tobacco Screening. 0-Not at all [facility] [address] DO Work Phone: Tobacco Screening. Somewhat Difficult [facility] [address] DO Work Phone: Activated partial thrombopla stin time (aPTT) in platelet poor plasma by coagulation aOrdered By: Anibal Valle on 06-05-2023 aPTT Coag (PPP) [Time] 28.0 s 25.1-36.5 [facility] Basophils Auto (Bld) [#/Vol] Ordered By: Anibal Valle on 06-05-2023 Basophils (Bld) [#/Vol] 0.0 10*3/uL 0.0-0.2 [facility] Basophils/100 WBC Auto (Bld) Ordered By: Anibal Valle on 06-05-2023 Basophils/100 WBC (Bld) 0.4 % . [facility] Calcium [Mass/volume] in Ser um or PlasmaOrdered By: Anibal Valle on 06-05-2023 Calcium [Mass/Vol] 9.0 mg/dL 8.6-10.3 [facility] Carbon dioxide, total [Moles /volume] in Serum or PlasmaOrdered By: Anibal Valle on 06-05-2023 CO2 [Moles/Vol] 23.2 mmol/L 21.0-31.0 [facility] Chloride [Moles/volume] in S jay or PlasmaOrdered By: Anibal Valle on 06-05-2023 Chloride [Moles/Vol] 108 mmol/L 98-107 [facility] Creatinine [Mass/volume] in Serum or PlasmaOrdered By: Anibal Valle on 06-05-2023 Creatinine [Mass/Vol] 0.67 mg/dL 0.60-1.20 [facility] Eosinophils Auto (Bld) [#/Vo l]Ordered By: Anibal Valle on 06-05-2023 Eosinophils (Bld) [#/Vol] 0.1 10*3/uL 0.0-0.45 [facility] Eosinophils/100 WBC Auto (Bl d)Ordered By: Anibal Valle on 06-05-2023 Eosinophils/100 WBC (Bld) 1.9 % . [facility] Erythrocyte distribution wid th Auto (RBC) [Ratio]Ordered By: Anibal Valle on 06-05-2023 Erythrocyte distribution width (RBC) [Ratio] 13.9 % 11.9-15.3 [facility] Glucose [Mass/volume] in Ser um or PlasmaOrdered By: Anibal Valle on 06-05-2023 Glucose [Mass/Vol] 106 mg/dL 70-100 [facility] Comment on above: ADA recommended refe rence rangeRandom Glucose Reference Range is dependent on time and content of last meal. Glucose of more than 200 mg/dL in a nonstressed, ambulatory subject supports the diagnosis of Diabetes Mellitus. Hematocrit Auto (Bld) [Volum e fraction]Ordered By: Anibal Valle on 06-05-2023 Hematocrit (Bld) [Volume fraction] 34.4 % 34.0-46.4 [facility] Hemoglobin [Mass/volume] in BloodOrdered By: Anibal Valle on 06-05-2023 Hemoglobin (Bld) [Mass/Vol] 11.9 g/dL 11.8-15.4 [facility] Laboratory - CoagulationOrde red By: Anibal Valle on 06-05-2023 PT Coag (PPP) [Time] 12.0 s 9.0-12.9 [facility] Leukocytes [#/volume] correc herbert for nucleated erythrocytes in Blood by Automated counOrdered By: Anibal Valle on 06-05-2023 WBC corrected for nucl RBC Auto (Bld) [#/Vol] 4.4 10*3/uL 3.8-11.6 [facility] Lymphocytes Auto (Bld) [#/Vo l]Ordered By: Anibal Valle on 06-05-2023 Lymphocytes (Bld) [#/Vol] 1.8 10*3/uL 1.00-4.8 [facility] Lymphocytes/100 WBC Auto (Bl d)Ordered By: Anibal Valle on 06-05-2023 Lymphocytes/100 WBC (Bld) 41.0 % . [facility] MCH Auto (RBC) [Entitic mass ]Ordered By: Anibal Valle on 06-05-2023 MCH (RBC) [Entitic mass] 27.7 pg 24.7-34.3 [facility] MCHC Auto (RBC) [Mass/Vol]Or dered By: Anibal Valle on 06-05-2023 MCHC (RBC) [Mass/Vol] 34.5 g/dL 32.0-35.0 [facility] MCV Auto (RBC) [Entitic vol] Ordered By: Anibal Valle on 06-05-2023 MCV (RBC) [Entitic vol] 80.2 fL 80-100 [facility] Monocyte distribution width [Entitic volume] in Blood by AutomatedOrdered By: Anibal Valle on 06-05-2023 Monocyte distribution width Auto (Bld) [Entitic vol] 24.18 % 0.00-20.00 [facility] Comment on above: For adults in ED, MD W > 20.0 may be associated with a higher risk of sepsis during the first 12 hrs of hospital admission Monocytes Auto (Bld) [#/Vol] Ordered By: Anibal Valle on 06-05-2023 Monocytes (Bld) [#/Vol] 0.3 10*3/uL 0.0-0.8 [facility] Monocytes/100 WBC Auto (Bld) Ordered By: Anibal Valle on 06-05-2023 Monocytes/100 WBC (Bld) 7.5 % . [facility] Natriuretic peptide B [Mass/ Vol]Ordered By: Anibal Valle on 06-05-2023 Natriuretic peptide B (Bld) [Mass/Vol] 39.0 pg/mL 5-100 [facility] Neutrophils Auto (Bld) [#/Vo l]Ordered By: Anibal Valle on 06-05-2023 Neutrophils (Bld) [#/Vol] 2.2 10*3/uL 1.8-7.7 [facility] Neutrophils/100 WBC Auto (Bl d)Ordered By: Anibal Valle on 06-05-2023 Neutrophils/100 WBC (Bld) 49.2 % . [facility] No Panel InformationOrdered By: Anibal Valle on 06-05-2023 Estimated GFR (CKD-EPI) > 60.0 mL/Min [facility] Pharmacy Creatinine Clearance (Chem 97.82 [facility] Nucleated erythrocytes [Pres ence] in Blood by Automated countOrdered By: Anibal Valle on 06-05-2023 Nucleated RBC Auto Ql (Bld) 0.1 /100{WBC} 0-0.5 [facility] Platelet mean volume Auto (B ld) [Entitic vol]Ordered By: Anibal Valle on 06-05-2023 Platelet mean volume (Bld) [Entitic vol] 7.4 fL 6.3-10.7 [facility] Platelet poor plasma interna tional normalized ratio (INR) by coagulation assay (relatOrdered By: Anibal Valle on 06-05-2023 INR Coag (PPP) [Relative time] 1.0 {INR} [facility] Comment on above: INR Therapeutic Rang e [...] (Bld) [#/Vol] 336 10*3/uL 150-450 [facility] Potassium [Moles/volume] in Serum or PlasmaOrdered By: Anibal Valle on 06-05-2023 Potassium [Moles/Vol] 3.8 mmol/L 3.5-5.1 [facility] RBC Auto (Bld) [#/Vol]Ordere d By: Anibal Valle on 06-05-2023 RBC (Bld) [#/Vol] 4.29 10*6/uL 3.60-5.00 [facility] Serum or plasma anion gap de terminationOrdered By: Anibal Valle on 06-05-2023 Anion gap [Moles/Vol] 10.6 mmol/L 6.0-15.0 [facility] Sodium [Moles/volume] in Ser um or PlasmaOrdered By: Anibal Valle on 06-05-2023 Sodium [Moles/Vol] 138 mmol/L 136-145 [facility] Troponin I.cardiac [Mass/vol ume] in Serum or Plasma by Detection limit <= 0.01 ng/Ordered By: Anibal Valle on 06-05-2023 Troponin I.cardiac DL <= 0.01 ng/mL [Mass/Vol] 2.6 pg/mL 0.0-15.0 [facility] Urea nitrogen [Mass/volume] in Serum or PlasmaOrdered By: Anibal Valle on 06-05-2023 Urea nitrogen [Mass/Vol] 10 mg/dL 7-25 [facility] WBC Auto (Bld) [#/Vol]Ordere d By: Anibal Valle on 06-05-2023 WBC (Bld) [#/Vol] 4.4 10*3/uL 3.8-11.6 [facility] CBC AUTO DIFFon 04-05-2023 BASO # 0.0 103/ul Normal 0.0-0.1 [facility] Comment on above: Performed By: #### L ACT #### [facility] [address] [address] [address] Mirian Velasco Basophils/100 WBC (Bld) 0.8 % Normal 0.2-2.0 [facility] Comment on above: Performed By: #### L ACT #### [facility] [address] [address] [address] Mirian Velasco EO # 0.1 103/ul Normal 0.0-0.7 [facility] Comment on above: Performed By: #### L ACT #### [facility] [address] [address] [address] Mirian Velasco Eosinophils/100 WBC (Bld) 1.1 % Normal 0.9-7.0 [facility] Comment on above: Performed By: #### L ACT #### [facility] [address] [place] [address] Dr. Mirian Velasco Erythrocyte distribution width (RBC) [Ratio] 13.1 % Normal 11.0-15.0 [facility] Comment on above: Performed By: #### L ACT #### [facility] [address] [place] [address] Dr. Mirian Velasco Hematocrit (Bld) [Volume fraction] 37.6 % Normal 36.0-48.0 [facility] Comment on above: Performed By: #### L ACT #### [facility] [address] [place] [address] Dr. Mirian Velasco Hemoglobin (Bld) [Mass/Vol] 12.4 g/dL Normal 12.0-16.0 [facility] Comment on above: Performed By: #### L ACT #### [facility] [address] [address] [address] Mirian Velasco IG # 0.01 10e3/ul Normal 0.00-0.03 [facility] Comment on above: Performed By: #### L ACT #### [facility] [address] [address] [address] Mirian Velasco IG % 0.2 % Normal 0.0-0.5 [facility] Comment on above: Performed By: #### L ACT #### [facility] [address] [place] [address] Dr. Mirian Velasco LYMPH # 2.5 103/ul Normal 1.2-3.8 [facility] Comment on above: Performed By: #### L ACT #### [facility] [address] [place] [address] Dr. Mirian Velasco Lymphocytes/100 WBC (Bld) 46.2 % Normal 20.5-60.0 [facility] Comment on above: Performed By: #### L ACT #### [facility] [address] [place] [address] Dr. Mirian Velasco MANUAL DIFF REQ NO Normal [facility] Comment on above: Performed By: #### L ACT #### [facility] [address] [place] [address] Dr. Mirian Velasco MCH (RBC) [Entitic mass] 27.1 pg Normal 26.7-34.0 [facility] Comment on above: Performed By: #### L ACT #### [facility] [address] [place] [address] Dr. Mirian Velasco MCHC (RBC) [Mass/Vol] 33.0 g/dL Normal 29.9-35.2 [facility] Comment on above: Performed By: #### L ACT #### [facility] [address] [place] [address] Dr. Mirian Velasco MCV (RBC) [Entitic vol] 82.3 fL Normal 81.0-99.0 [facility] Comment on above: Performed By: #### L ACT #### [facility] [address] [place] [address] Dr. Mirian Velasco MONO # 0.4 103/ul Normal 0.3-0.8 [facility] Comment on above: Performed By: #### L ACT #### [facility] [address] [place] [address] Dr. Mirian Velasco Monocytes/100 WBC (Bld) 7.9 % Normal 1.7-12.0 [facility] Comment on above: Performed By: #### L ACT #### [facility] [address] [address] [address] Mirian Velasco NEUT # 2.3 103/ul Normal 1.4-6.5 [facility] Comment on above: Performed By: #### L ACT #### [facility] [address] [address] [address] Mirian Velasco Neutrophils/100 WBC (Bld) 43.8 % Normal 43.0-75.0 [facility] Comment on above: Performed By: #### L ACT #### [facility] [address] [address] [address] Mirian Velasco Platelet mean volume (Bld) [Entitic vol] 9.2 fL Critically low 9.5-13.5 [facility] Comment on above: Performed By: #### L ACT #### [facility] [address] [address] [address] Mirian Velasco PLT 318 103/ul Normal 150-450 [facility] Comment on above: Performed By: #### L ACT #### [facility] [address] [address] [address] Mirian Velasco RBC 4.57 106/ul Normal 4.20-5.40 [facility] Comment on above: Performed By: #### L ACT #### [facility] [address] [address] [address] Mirian Velasco WBC 5.3 103/ul Normal 4.0-11.0 [facility] Comment on above: Performed By: #### L ACT #### [facility] [address] [address] [address] Mirian Velasco PROF CHEM 8 (BAS METB)on Anion gap [Moles/Vol] 19.0 mmol/L Normal [facility] Comment on above: Performed By: #### H FAUSTO, BMP ####[facility] [address] [address]Dr. Mirian Velasco Calcium [Mass/Vol] 9.6 mg/dL Normal 8.5-10.1 [facility] Comment on above: Performed By: #### H FAUSTO, BMP ####[facility] [address] [address]Dr. Mirian Velasco Chloride [Moles/Vol] 103 mmol/L Normal 98-107 [facility] Comment on above: Performed By: #### H STROROSALIO, BMP ####[facility] [address] [address]Dr. Mirian Velasco CO2 [Moles/Vol] 23.1 mmol/L Normal 21.0-32.0 [facility] Comment on above: Performed By: #### H STROROSALIO, BMP ####[facility] [address] [address]Dr. Mirian Velasco Creatinine [Mass/Vol] 0.84 mg/dL Normal 0.55-1.02 [facility] Comment on above: Performed By: #### H FAUSTO, BMP ####[facility] [address] [place], [place] [address]Dr. Mirian Velasco EGFR-AF [place] >60 Normal >=60 [facility] Comment on above: Performed By: #### H FAUSTO, BMP ####[facility] [address] [address]Dr. Mirian Velasco EGFR-NON AF [place] >60 Normal >=60 [facility] Comment on above: Performed By: #### H FAUSTO, BMP ####[facility] [address] [address]Dr. Mirian Velasco Glucose [Mass/Vol] 129 mg/dL Critically high 74-106 [facility] Comment on above: Performed By: #### H STROROSALIO, BMP ####[facility] [address] [address]Dr. Mirian Velasco Potassium [Moles/Vol] 3.1 mmol/L Critically low 3.5-5.1 [facility] Comment on above: Performed By: #### H STROROSALIO, BMP ####[facility] [address] [address]Dr. Mirian Velasco Sodium [Moles/Vol] 142 mmol/L Normal 136-145 [facility] Comment on above: Performed By: #### H STROPN, BMP ####[facility] [address] [id number][address] Mirian Velasco Urea nitrogen [Mass/Vol] 12.0 mg/dL Normal 7.0-18.0 [facility] Comment on above: Performed By: #### H STROPN, BMP ####[facility] [address] [id number][address] Mirian Velasco Urea nitrogen/Creatinine [Mass ratio] 14.3 mg/mg Normal [facility] Comment on above: Performed By: #### H STROPN, BMP ####[facility] [address] [id number][address] Mirian Velasco TROPONIN, HIGH SENSITIVITYon 04-05-2023 HSTROP 5.6 pg/mL Normal 4.0-51.3 [facility] Comment on above: Result Comment: CUT- OFF POINTS HAVE BEEN ESTABLISHED BASED ON THE FOURTH UNIVERSAL DEFINITIONS OF MYOCARDIAL INFARCTION. THE UPPER REFERENCE LIMIT (URL) OF TROPONIN, DEFINED THE 99TH PERCENTILE OF cTnI DISTRIBUTION IN A REFERENCE POPULATION, HAS BEEN CONFIRMED THE DECISION THRESHOLD FOR [place] DIAGNOSIS. Performed By: #### H FAUSTO, BMP ####[facility] [address] [address]DrReno Velasco CBC AUTO DIFFon 03-06-2023 BASO # 0.1 103/ul Normal 0.0-0.1 [facility] Comment on above: Performed By: #### L ACT #### [facility] [address] [place] [address] Dr. Mirian Velasco Basophils/100 WBC (Bld) 0.8 % Normal 0.2-2.0 [facility] Comment on above: Performed By: #### L ACT #### [facility] [address] [place] [address] Dr. Mirian Velasco EO # 0.1 103/ul Normal 0.0-0.7 [facility] Comment on above: Performed By: #### L ACT #### [facility] [address] [address] [address] Mirian Velasco Eosinophils/100 WBC (Bld) 1.4 % Normal 0.9-7.0 [facility] Comment on above: Performed By: #### L ACT #### [facility] [address] [place] [address] Dr. Mirian Velasco Erythrocyte distribution width (RBC) [Ratio] 13.1 % Normal 11.0-15.0 [facility] Comment on above: Performed By: #### L ACT #### [facility] [address] [place] [address] Dr. Mirian Velasco Hematocrit (Bld) [Volume fraction] 37.9 % Normal 36.0-48.0 [facility] Comment on above: Performed By: #### L ACT #### [facility] [address] [place] [address] Dr. Mirian Velasco Hemoglobin (Bld) [Mass/Vol] 12.7 g/dL Normal 12.0-16.0 [facility] Comment on above: Performed By: #### L ACT #### [facility] [address] [place] [address] Dr. Mirian Velasco IG # 0.01 10e3/ul Normal 0.00-0.03 [facility] Comment on above: Performed By: #### L ACT #### [facility] [address] [place] [address] Dr. Mirian Velasco IG % 0.2 % Normal 0.0-0.5 [facility] Comment on above: Performed By: #### L ACT #### [facility] [address] [place] [address] Dr. Mirian Velasco LYMPH # 1.8 103/ul Normal 1.2-3.8 [facility] Comment on above: Performed By: #### L ACT #### [facility] [address] [place] [address] Dr. Mirian Velasco Lymphocytes/100 WBC (Bld) 27.2 % Normal 20.5-60.0 [facility] Comment on above: Performed By: #### L ACT #### [facility] [address] [place] [address] Dr. Mirian Velasco MANUAL DIFF REQ NO Normal [facility] Comment on above: Performed By: #### L ACT #### [facility] [address] [address] [address] Mirian Velasco MCH (RBC) [Entitic mass] 27.5 pg Normal 26.7-34.0 [facility] Comment on above: Performed By: #### L ACT #### [facility] [address] [address] [address] Mirian Velasco MCHC (RBC) [Mass/Vol] 33.5 g/dL Normal 29.9-35.2 [facility] Comment on above: Performed By: #### L ACT #### [facility] [address] [address] [address] Mirian Velasco MCV (RBC) [Entitic vol] 82.0 fL Normal 81.0-99.0 [facility] Comment on above: Performed By: #### L ACT #### [facility] [address] [place] [address] Dr. Mirian Velasco MONO # 0.4 103/ul Normal 0.3-0.8 [facility] Comment on above: Performed By: #### L ACT #### [facility] [address] [place] [address] Dr. Mirian Velasco Monocytes/100 WBC (Bld) 5.5 % Normal 1.7-12.0 [facility] Comment on above: Performed By: #### L ACT #### [facility] [address] [place] [address] Dr. Mirian Velasco NEUT # 4.3 103/ul Normal 1.4-6.5 [facility] Comment on above: Performed By: #### L ACT #### [facility] [address] [place] [address] Dr. Mirian Velasco Neutrophils/100 WBC (Bld) 64.9 % Normal 43.0-75.0 [facility] Comment on above: Performed By: #### L ACT #### [facility] [address] [address] [address] Mirian Velasco Platelet mean volume (Bld) [Entitic vol] 9.4 fL Critically low 9.5-13.5 [facility] Comment on above: Performed By: #### L ACT #### [facility] [address] [address] [address] Mirian Velasco PLT 317 103/ul Normal 150-450 [facility] Comment on above: Performed By: #### L ACT #### [facility] [address] [address] [address] Mirian Velasco RBC 4.62 106/ul Normal 4.20-5.40 [facility] Comment on above: Performed By: #### L ACT #### [facility] [address] [address] [address] Mirian Velasco WBC 6.6 103/ul Normal 4.0-11.0 [facility] Comment on above: Performed By: #### L ACT #### [facility] [address] [address] [address] Mirian Velasco CULTURE BLOODon 03-06-2023 Microscopic examination of blood, culture Culture Observations: NO GROWTH AT 5 DAYS. Normal [facility] Comment on above: Performed By: #### B LDCX2 ####[facility] [id number] [address]Dr. Mirian Velasco Microscopic examination of blood, culture Culture Observations: NO GROWTH AT 5 DAYS. Normal [facility] Comment on above: Performed By: #### B LDCX1 #### [facility] [address] [place] [address] Dr. Mirian Velasco LACTATE/LACTIC ACIDon 2022 Lactate [Moles/Vol] 2.2 mmol/L Critically high 0.4-2.0 [facility] Comment on above: Performed By: #### L ACT #### [facility] [address] [address] [address] Mirian Velasco LIPASEon 03-06-2023 Lipase [Catalytic activity/Vol] 53.0 U/L Critically low 73.0-393.0 [facility] Comment on above: Performed By: #### L ACT #### [facility] [address] [address] [address] Mirian Velasco PROF 14(COMP METB)on 023 Albumin [Mass/Vol] 3.4 g/dL Normal 3.4-5.0 [facility] Comment on above: Performed By: #### L ACT #### [facility] [address] [place] [address] Dr. Mirian Velasco Albumin/Globulin [Mass ratio] 1.0 {ratio} Normal [facility] Comment on above: Performed By: #### L ACT #### [facility] [address] [address] [address] Mirian Velasco ALP [Catalytic activity/Vol] 123 U/L Critically high 46-116 [facility] Comment on above: Performed By: #### L ACT #### [facility] [address] [place] [address] Dr. Mirian Velasco ALT [Catalytic activity/Vol] 33 U/L Normal 14-59 [facility] Comment on above: Performed By: #### L ACT #### [facility] [address] [place] [address] Dr. Mirian Velasco Anion gap [Moles/Vol] 13.1 mmol/L Normal [facility] Comment on above: Performed By: #### L ACT #### [facility] [address] [place] [address] Dr. Mirian Velasco AST [Catalytic activity/Vol] 31 U/L Normal 15-37 [facility] Comment on above: Performed By: #### L ACT #### [facility] [address] [place] [address] Dr. Mirian Velasco Bilirubin [Mass/Vol] 0.3 mg/dL Normal 0.2-1.0 [facility] Comment on above: Performed By: #### L ACT #### [facility] [address] [address] [address] Mirian Velasco Calcium [Mass/Vol] 8.9 mg/dL Normal 8.5-10.1 [facility] Comment on above: Performed By: #### L ACT #### [facility] [address] [place] [address] Dr. Mirian Velasco Chloride [Moles/Vol] 107 mmol/L Normal 98-107 [facility] Comment on above: Performed By: #### L ACT #### [facility] [address] [address] [address] Mirian Velasco CO2 [Moles/Vol] 25.6 mmol/L Normal 21.0-32.0 [facility] Comment on above: Performed By: #### L ACT #### [facility] [address] [address] [address] Mirian Velasco Creatinine [Mass/Vol] 0.70 mg/dL Normal 0.55-1.02 [facility] Comment on above: Performed By: #### L ACT #### [facility] [address] [address] [address] Mirian Velasco EGFR-AF [place] >60 Normal >=60 [facility] Comment on above: Performed By: #### L ACT #### [facility] [address] [address] [address] Mirian Velasco EGFR-NON AF [place] >60 Normal >=60 [facility] Comment on above: Performed By: #### L ACT #### [facility] [address] [address] [address] Mirian Velasco Globulin (S) [Mass/Vol] 3.4 g/dL Normal [facility] Comment on above: Performed By: #### L ACT #### [facility] [address] [address] [address] Mirian Velasco Glucose [Mass/Vol] 125 mg/dL Critically high 74-106 [facility] Comment on above: Performed By: #### L ACT #### [facility] [address] [address] [address] Mirian Velasco Potassium [Moles/Vol] 3.7 mmol/L Normal 3.5-5.1 [facility] Comment on above: Performed By: #### L ACT #### [facility] [address] [address] [address] Mirian Velasco Protein [Mass/Vol] 6.8 g/dL Normal 6.4-8.2 [facility] Comment on above: Performed By: #### L ACT #### [facility] [address] [address] [address] Mirian Velasco Sodium [Moles/Vol] 142 mmol/L Normal 136-145 [facility] Comment on above: Performed By: #### L ACT #### [facility] [address] [address] [address] Mirian Velasco Urea nitrogen [Mass/Vol] 16.0 mg/dL Normal 7.0-18.0 [facility] Comment on above: Performed By: #### L ACT #### [facility] [address] [address] [address] Mirian Velasco Urea nitrogen/Creatinine [Mass ratio] 22.9 mg/mg Normal [facility] Comment on above: Performed By: #### L ACT #### [facility] [address] [address] [address] Mirian Velasco PROTIMEon 03-06-2023 INR Coag (PPP) [Relative time] {INR} Normal [facility] Comment on above: Performed By: #### P T #### [facility] [address] [address] [address] Mirian Velasco INR GUIDELINES SEE BELOW Normal [facility] Comment on above: Result Comment: SAMEER RED INR: 2.0 - 3.0 CONDITIONS NOT LISTED BELOW 2.5 - 3.5 FOR PROSTHETIC HEART VALVE REPLACEMENT 2.5 - 3.5 RECURRENT THROMBOSIS Performed By: #### P T #### [facility] [address] [place] [address] Dr. Mirian Velasco PT Coag (PPP) [Time] 9.8 s Normal 9.0-11.6 [facility] Comment on above: Performed By: #### P T #### [facility] [address] [address] [address] Mirian Velasco TROPONIN, HIGH SENSITIVITYon 03-06-2023 HSTROP 4.4 pg/mL Normal 4.0-51.3 [facility] Comment on above: Result Comment: CUT- OFF POINTS HAVE BEEN ESTABLISHED BASED ON THE FOURTH UNIVERSAL DEFINITIONS OF MYOCARDIAL INFARCTION. THE UPPER REFERENCE LIMIT (URL) OF TROPONIN, DEFINED THE 99TH PERCENTILE OF cTnI DISTRIBUTION IN A REFERENCE POPULATION, HAS BEEN CONFIRMED THE DECISION THRESHOLD FOR [place] DIAGNOSIS. Performed By: #### L ACT #### [facility] [address] [address] [address] Mirian Velasco Bacteria identified Aer cx N om (Unsp spec)Ordered By: Niecy Duron on 03-02-2023 Superficial Wound Culture Methicillin Resis Staph Aureus [facility] LSPINE WO CONon CT LSPINE WO [...] by: NANCY BELLE Date: 2023-02-19 06:42 Normal [facility] XR ESOPHAGRAMon 12-26-2022 [facility] NURSING PROGon 12-08-2022 NURSING PROG HNO ID: [id number] Author: Lisa Contreras RN Service: Nursing Author Type: Registered Nurse Type: Nursing Progress Note Filed: 12/08/2022 11:28 AM Note Text: [facility] ENDOSCOPY POST PROCEDURE FOLLOW UP CALL [phone] (home) Date Phone Call Made: 12/08/2022 Attempt: [...] more pleasant? No Lisa Contreras RN Normal [facility] ANES POSTPROC EVALon 023 ANES POSTPROC EVAL HNO ID: [id number] Author: Andres Sheets DO Service: Anesthesiology Author Type: Anesthesiologist Type: Anesthesia Postprocedure Evaluation Filed: 12/07/2022 12:44 PM Note Text: POST ANESTHESIA EVALUATION NOTE : 1970 Procedure Summary Date: 12/07/22 Room / Location: [facility] Anesthesia Start: 1034 Anesthesia Stop: [...] December 07, 2022 TIME: 12:44 PM CSN: [id number] [facility] ANES PRE-OPon 12-07-2022 ANES PRE-OP HNO ID: [id number] Author: Andres Sheets DO Service: Anesthesiology Author Type: Anesthesiologist Type: Anesthesia Preprocedure Evaluation Filed: 12/07/2022 9:42 AM Note Text: ANESTHESIOLOGY DAY OF SURGERY NOTE : 1970 Procedure Information Date/Time: 12/07/22 1030 Scheduled providers: Winston Hannah DO Procedures: EGD - THERAPEUTIC, EUS, OR TUBE INTERVENTIONS PH MONTIEL INSERT OFF MEDS Location: [facility] Estimated body mass index is [...] December 07, 2022 TIME: 9:40 AM CSN: [id number] [facility] HISTORY PHYSICALon HISTORY PHYSICAL HNO ID: [id number] Author: Soraida Mathis PA-C Service: Gastroenterology Author Type: Physician Creative Writer Type: HANDP Filed: 12/07/2022 9:48 AM Note [...] PAIN, N/V/D Medication reconciliation list reviewed in [facility]. Past medical history, past surgical history, social history and family history reviewed and updated in [facility]. ALLERGIES Allergies: Risperidone Intolerance Comment:Breast [...] Leal DATE: 12/07/2022 TIME: 9:41 AM Normal [facility] Upper GI endoscopyon 023 Upper GI endoscopy [facility] Gastrointestinal Endoscopy Patient Name: Mary [...] by the physician, the nurse and the fireworks assembler in the pre-procedure area in the endoscopy [...] previously scheduled. Procedure Code(s): --- Professional --- 20014, Esophagogastroduodenos copy, flexible, transoral; with dilation of gastric/duodenal stricture(s) (eg, balloon, bougie) Diagnosis Code(s): --- Professional --- K21.00, Gastro-esophageal reflux disease with esophagitis, without bleeding K31.84, Gastroparesis CPT copyright 2020 [employer]. All rights reserved. The codes documented in this report are preliminary and upon reclamation engineer review may be revised to meet current compliance requirements. Attending Participation: I personally performed the entire procedure. Scope In: 10:39:12 AM Scope Out: 10:46:13 AM MD Winston Diaz MD 12/07/2022 10 (more content not included)... Normal [facility] ANES POSTPROC EVALon 023 ANES POSTPROC EVAL HNO ID: [id number] Author: Annabel Burton MD Service: Anesthesiology Author Type: Physician Type: Anesthesia Postprocedure Evaluation Filed: 12/05/2022 2:01 PM Note Text: POST ANESTHESIA EVALUATION NOTE : 1970 Procedure Summary Date: 12/05/22 Room / Location: [facility] Anesthesia Start: 900 Anesthesia Stop: [...] December 05, 2022 TIME: 2:00 PM CSN: [id number] [facility] ANES PRE-OPon 12-05-2022 ANES PRE-OP HNO ID: [id number] Author: Annabel Burton MD Service: Anesthesiology Author Type: Physician Type: Anesthesia Preprocedure Evaluation Filed: 12/05/2022 8:28 AM Note Text: ANESTHESIOLOGY DAY OF SURGERY NOTE : 1970 Procedure Information Date/Time: 12/05/22 0900 Scheduled providers: Isra Masters DO Procedure: SIGMOIDOSCOPY Location: [facility] Estimated body mass index is [...] December 05, 2022 TIME: 8:26 AM CSN: [id number] Normal [facility] Flexible Sigmoidoscopyon Flexible sigmoidoscopy [facility] Gastrointestinal Endoscopy Patient Name: Mary Leal Procedure Date: 12/05/2022 8:55 AM Date of : 1970 Admit Type: Outpatient Age: 52 Room: [place] [address] Gender: Female Note Status: Finalized Attending MD: [...] present medications. Procedure Code(s): --- Professional --- 71531, 52, Sigmoidoscopy, flexible; diagnostic, including collection of specimen(s) by brushing or washing, when performed (separate procedure) Diagnosis Code(s): --- Professional --- K59.00, Constipation, unspecified CPT copyright 2020 [employer]. All rights reserved. The codes documented in this report are preliminary and upon reclamation engineer review may be revised to meet current compliance requirements. Attending Participation: I personally performed the entire procedure. Scope In: 9:07:04 AM Scope Out: 9:09:45 AM DO Isra Chen DO 12/05/2022 9:13:05 AM This report has been signed electronically by Isra Masters DO Number of Addenda: 0 Note Initiated On: 12/05/2022 8:55 AM Estimated Blood Loss: Estimated blood loss: none. Normal [facility] HISTORY PHYSICALon HISTORY PHYSICAL HNO ID: [id number] Author: Lashanda Dorado PA-C Service: Gastroenterology Author Type: Physician Creative Writer Type: HANDP Filed: 12/05/2022 8:43 AM Note [...] PAIN, N/V/D Medication reconciliation list reviewed in [facility]. Past medical history, past surgical history, social history and family history reviewed and updated in [facility]. ALLERGIES Allergies: Risperidone Intolerance Comment:Breast [...] Leal DATE: 12/05/2022 TIME: 8:42 AM Normal [facility] NURSING PROGon 12-05-2022 NURSING PROG HNO ID: [id number] Author: Lisa Contreras, RN Service: ? Author Type: Registered Nurse Type: Nursing Progress Note Filed: 12/05/2022 1:07 PM Note Text: [facility] ENDOSCOPY PRE PROCEDURE CALL Akiko. I'm calling from [facility] endoscopy to provide you with the information for your surgery/procedure tomorrow. 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 tbd What is the best number for your solid waste truck driver to be reached at tomorrow for updates? tbd Your solid waste truck driver is allowed to wait here [...] given Any barriers to Patient learning (confusion? Relocation Associate needed?): Patient/Patient Senior Product Development Engineer responded appropriately on phone. If patient needs to reschedule please call: [phone] [facility] phone number: [phone] Type of instruction given: Verbal by telephone contact. Normal [facility] NURSING PROGon 12-02-2022 NURSING PROG HNO ID: [id number] Author: Isra Harman RN Service: ? Author Type: Registered Nurse Type: Nursing Progress Note Filed: 12/02/2022 10:54 AM Note Text: [facility] ENDOSCOPY PRE PROCEDURE CALL Akiko. I'm calling from [facility] endoscopy to provide you with the information for your surgery/procedure tomorrow. 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 Rich What is the best number for your solid waste truck driver to be reached at tomorrow for updates? [phone] Your solid waste truck driver is allowed to wait here [...] must be done on Monday.) Did you hand picker your bowel prep pt calling office [...] given Any barriers to Patient learning (confusion? Relocation Associate needed?): Patient/Patient Senior Product Development Engineer responded appropriately on phone. If patient needs to reschedule please call: [phone] [facility] phone number: [phone] Type of instruction given: Verbal by telephone contact. Normal [facility] AMYLASEon 10-20-2022 Amylase [Catalytic activity/Vol] 33 U/L Normal 25-115 [facility] Comment on above: Performed By: #### L ACT #### [facility] [address] [place] [address] Dr. Mirian Velasco CBC AUTO DIFFon 10-20-2022 BASO # 0.0 103/ul Normal 0.0-0.1 [facility] Comment on above: Performed By: #### P T #### [facility] [address] [address] [address] Mirian Velasco Basophils/100 WBC (Bld) 0.2 % Normal 0.2-2.0 [facility] Comment on above: Performed By: #### P T #### [facility] [address] [place] [address] Dr. Mirian Velasco EO # 0.1 103/ul Normal 0.0-0.7 [facility] Comment on above: Performed By: #### P T #### [facility] [address] [address] [address] Mirian Velasco Eosinophils/100 WBC (Bld) 0.6 % Critically low 0.9-7.0 [facility] Comment on above: Performed By: #### P T #### [facility] [address] [place] [address] Dr. Mirian Velasco Erythrocyte distribution width (RBC) [Ratio] 13.6 % Normal 11.0-15.0 [facility] Comment on above: Performed By: #### P T #### [facility] [address] [place] [address] Dr. Mirian Velasco Hematocrit (Bld) [Volume fraction] 41.0 % Normal 36.0-48.0 [facility] Comment on above: Performed By: #### P T #### [facility] [address] [place] [address] Dr. Mirian Velasco Hemoglobin (Bld) [Mass/Vol] 13.5 g/dL Normal 12.0-16.0 [facility] Comment on above: Performed By: #### P T #### [facility] [address] [place] [address] Dr. Mirian Velasco IG # 0.06 10e3/ul Critically high 0.00-0.03 [facility] Comment on above: Performed By: #### P T #### [facility] [address] [place] [address] Dr. Mirian Velasco IG % 0.4 % Normal 0.0-0.5 [facility] Comment on above: Performed By: #### P T #### [facility] [address] [place] [address] Dr. Mirian Velasco LYMPH # 2.5 103/ul Normal 1.2-3.8 [facility] Comment on above: Performed By: #### P T #### [facility] [address] [place] [address] Dr. Mirian Velasco Lymphocytes/100 WBC (Bld) 17.5 % Critically low 20.5-60.0 [facility] Comment on above: Performed By: #### P T #### [facility] [address] [place] [address] Dr. Mirian Velasco MANUAL DIFF REQ NO Normal [facility] Comment on above: Performed By: #### P T #### [facility] [address] [place] [address] Dr. Mirian Velasco MCH (RBC) [Entitic mass] 28.1 pg Normal 26.7-34.0 [facility] Comment on above: Performed By: #### P T #### [facility] [address] [place] [address] Dr. Mirian Velasco MCHC (RBC) [Mass/Vol] 32.9 g/dL Normal 29.9-35.2 [facility] Comment on above: Performed By: #### P T #### [facility] [address] [place] [address] Dr. Mirian Velasco MCV (RBC) [Entitic vol] 85.2 fL Normal 81.0-99.0 [facility] Comment on above: Performed By: #### P T #### [facility] [address] [place] [address] Dr. Mirian Velasco MONO # 0.7 103/ul Normal 0.3-0.8 [facility] Comment on above: Performed By: #### P T #### [facility] [address] [place] [address] Dr. Mirian Velasco Monocytes/100 WBC (Bld) 4.5 % Normal 1.7-12.0 [facility] Comment on above: Performed By: #### P T #### [facility] [address] [place] [address] Dr. Mirian Velasco NEUT # 11.0 103/ul Critically high 1.4-6.5 [facility] Comment on above: Performed By: #### P T #### [facility] [address] [place] [address] Dr. Mirian Velasco Neutrophils/100 WBC (Bld) 76.8 % Critically high 43.0-75.0 [facility] Comment on above: Performed By: #### P T #### [facility] [address] [address] [address] Mirian Velasco Platelet mean volume (Bld) [Entitic vol] 8.7 fL Critically low 9.5-13.5 [facility] Comment on above: Performed By: #### P T #### [facility] [address] [place] [address] Dr. Mirian Velasco PLT 390 103/ul Normal 150-450 [facility] Comment on above: Performed By: #### P T #### [facility] [address] [address] [address] Mirian Velasco RBC 4.81 106/ul Normal 4.20-5.40 [facility] Comment on above: Performed By: #### P T #### [facility] [address] [place] [address] Dr. Mirian Velasco WBC 14.3 103/ul Critically high 4.0-11.0 [facility] Comment on above: Performed By: #### P T #### [facility] [address] [place] [address] ABD/PELV W CONon [...] by: SALMA AMEZQUITA Date: 2022-10-20 12:35 Normal [facility] CULTURE BLOODon 10-20-2022 Microscopic examination of blood, culture Culture Observations: NO GROWTH AT 5 DAYS. Normal [facility] Comment on above: Performed By: #### B [id number] ####[facility] [id number] [address]Dr. Mirian Velasco Microscopic examination of blood, culture Culture Observations: NO GROWTH AT 5 DAYS. Normal [facility] Comment on above: Performed By: #### B LDCX1 #### [facility] [address] [place] [address] Dr. 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 NO POTENTIAL PATHOGENS SEEN. Normal [facility] Comment on above: Performed By: #### U RCX #### [facility] [address] [place] [address] Dr. Mirian Velasco ER URINE PROFILEon 2 Bilirubin Ql (U) Negative Normal NEGATIVE [facility] Comment on above: Performed By: #### P T #### [facility] [address] [place] [address] Dr. Mirian Velasco Clarity (U) CLEAR Normal CLEAR [facility] Comment on above: Performed By: #### P T #### [facility] [address] [place] [address] Dr. Mirian Velasco Color (U) LT. YELLOW Normal YELLOW [facility] Comment on above: Performed By: #### P T #### [facility] [address] [place] [address] Dr. Mirian KING A micrscopic examination will be performed if indicated. Normal [facility] Comment on above: Performed By: #### P T #### [facility] [address] [place] [address] Dr. Mirian Velasco Glucose Ql (U) Negative Normal NEGATIVE [facility] Comment on above: Performed By: #### P T #### [facility] [address] [place] [address] Dr. Mirian Velasco Hemoglobin Ql (U) Negative Normal NEGATIVE [facility] Comment on above: Performed By: #### P T #### [facility] [address] [place] [address] Dr. Mirian Velasco Ketones Ql (U) Negative Normal NEGATIVE [facility] Comment on above: Performed By: #### P T #### [facility] [address] [place] [address] Dr. Mirian Velasco LEUKOCYTES SMALL Abnormal NEGATIVE [facility] Comment on above: Performed By: #### P T #### [facility] [address] [place] [address] Dr. Mirian Velasco Nitrite Ql (U) Negative Normal NEGATIVE [facility] Comment on above: Performed By: #### P T #### [facility] [address] [place] [address] Dr. Mirian Velasco pH (U) 7.0 [pH] Normal 5-9 [facility] Comment on above: Performed By: #### P T #### [facility] [address] [place] [address] Dr. Mirian Velasco SPEC GRAVITY 1.015 Normal 1.005-<=1.025 [facility] Comment on above: Performed By: #### P T #### [facility] [address] [place] [address] Dr. Mirian Velasco UA PROTEIN Negative Normal NEGATIVE/ TRACE [facility] Comment on above: Performed By: #### P T #### [facility] [address] [place] [address] Dr. Mirian Velasco UR MICRO IND INDICATED Normal [facility] Comment on above: Performed By: #### P T #### [facility] [address] [place] [address] Dr. Mirian Velasco Urobilinogen Qn (U) 0.2 {Lyubov'U}/dL Normal 0.2 - 1. 0 [facility] Comment on above: Performed By: #### P T #### [facility] [address] [place] [address] Dr. Mirian Velasco LACTATE/LACTIC ACIDon 2021 Lactate [Moles/Vol] 1.3 mmol/L Normal 0.4-1.9 [facility] Comment on above: Performed By: #### L ACT #### [facility] [address] [place] [address] Dr. Mirain Velasco LIPASEon 10-20-2022 Lipase [Catalytic activity/Vol] 49.0 U/L Critically low 73.0-393.0 [facility] Comment on above: Performed By: #### P T #### [facility] [address] [place] [address] Dr. Mirian Velasco PROF 14(COMP METB)on 022 Albumin [Mass/Vol] 3.2 g/dL Critically low 3.4-5.0 [facility] Comment on above: Performed By: #### P T #### [facility] [address] [place] [address] Dr. Mirian Velasco Albumin/Globulin [Mass ratio] 0.9 {ratio} Normal [facility] Comment on above: Performed By: #### P T #### [facility] [address] [place] [address] Dr. Mirian Velasco ALP [Catalytic activity/Vol] 129 U/L Critically high 46-116 [facility] Comment on above: Performed By: #### P T #### [facility] [address] [place] [address] Dr. Mirian Velasco ALT [Catalytic activity/Vol] 25 U/L Normal 14-59 [facility] Comment on above: Performed By: #### P T #### [facility] [address] [place] [address] Dr. Mirian Velasco Anion gap [Moles/Vol] 10.7 mmol/L Normal [facility] Comment on above: Performed By: #### P T #### [facility] [address] [address] [address] Mirian Velasco AST [Catalytic activity/Vol] 20 U/L Normal 15-37 [facility] Comment on above: Performed By: #### P T #### [facility] [address] [address] [address] Mirian Velasco Bilirubin [Mass/Vol] 0.5 mg/dL Normal 0.2-1.0 [facility] Comment on above: Performed By: #### P T #### [facility] [address] [place] [address] Dr. Mirian Velasco Calcium [Mass/Vol] 9.2 mg/dL Normal 8.5-10.1 [facility] Comment on above: Performed By: #### P T #### [facility] [address] [place] [address] Dr. Mirian Velasco Chloride [Moles/Vol] 102 mmol/L Normal 98-107 [facility] Comment on above: Performed By: #### P T #### [facility] [address] [place] [address] Dr. Mirian Velasco CO2 [Moles/Vol] 30.0 mmol/L Normal 21.0-32.0 [facility] Comment on above: Performed By: #### P T #### [facility] [address] [address] [address] Mirian Velasco Creatinine [Mass/Vol] 0.68 mg/dL Normal 0.55-1.02 [facility] Comment on above: Performed By: #### P T #### [facility] [address] [place] [address] Dr. Mirian Velasco EGFR-AF [place] >60 Normal >=60 [facility] Comment on above: Performed By: #### P T #### [facility] [address] [address] [address] Mirian Velasco EGFR-NON AF [place] >60 Normal >=60 [facility] Comment on above: Performed By: #### P T #### [facility] [address] [address] [address] Mirian Velasco Globulin (S) [Mass/Vol] 3.7 g/dL Normal [facility] Comment on above: Performed By: #### P T #### [facility] [address] [address] [address] Mirian Velasco Glucose [Mass/Vol] 109 mg/dL Critically high 74-106 [facility] Comment on above: Performed By: #### P T #### [facility] [address] [address] [address] Mirian Velasco Potassium [Moles/Vol] 3.7 mmol/L Normal 3.5-5.1 [facility] Comment on above: Performed By: #### P T #### [facility] [address] [place] [address] Dr. Mirian Velasco Protein [Mass/Vol] 6.9 g/dL Normal 6.4-8.2 [facility] Comment on above: Performed By: #### P T #### [facility] [address] [address] [address] Mirian Velasco Sodium [Moles/Vol] 139 mmol/L Normal 136-145 [facility] Comment on above: Performed By: #### P T #### [facility] [address] [address] [address] Mirian Velasco Urea nitrogen [Mass/Vol] 13.0 mg/dL Normal 7.0-18.0 [facility] Comment on above: Performed By: #### P T #### [facility] [address] [address] [address] Mirian Velasco Urea nitrogen/Creatinine [Mass ratio] 19.1 mg/mg Normal [facility] Comment on above: Performed By: #### P T #### [facility] [address] [address] [address] Mirian Velasco URINE MICROSCOPIC ONLYon BACTERIA TRACE Abnormal NONE SEEN [facility] Comment on above: Performed By: #### P T #### [facility] [address] [place] [address] Dr. Mirian Velasco Bacteria identified Cx Nom (U) INDICATED Normal [facility] Comment on above: Performed By: #### P T #### [facility] [address] [place] [address] Dr. Mirian Velasco CAST NONE SEEN Normal NONE SEEN [facility] Comment on above: Performed By: #### P T #### [facility] [address] [place] [address] Dr. Mirian Velasco Crystals LM Nom (Urine sed) NONE SEEN Normal NONE SEEN [facility] Comment on above: Performed By: #### P T #### [facility] [address] [place] [address] Dr. Mirian Velasco Epithelial cells LM Ql (Urine sed) MODERATE Abnormal NONE SEEN /RARE [facility] Comment on above: Performed By: #### P T #### [facility] [address] [place] [address] Dr. Mirian Velasco MUCOUS NONE SEEN Normal NONE SEEN [facility] Comment on above: Performed By: #### P T #### [facility] [address] [place] [address] Dr. Mirian Velasco RBC NONE SEEN Abnormal 0-2 [facility] Comment on above: Performed By: #### P T #### [facility] [address] [place] [address] Dr. Mirian Velasco WBC 2-5 Abnormal NONE SEEN [facility] Comment on above: Performed By: #### P T #### [facility] [address] [place] [address] Dr. Mirian Velasco YEAST PRESENT Abnormal NONE SEEN [facility] Comment on above: Result Comment: RARE BUDDING YEAST Performed By: #### P T #### [facility] [address] [place] [address] Dr. Mirian Velasco POINT OF CARE GLUCOSEon 10-06 Glucose [Mass/Vol] 131 mg/dL Critically high 74-106 [facility] Comment on above: Performed By: #### P OCGLUC ####[facility] [id number] [place], [place] [address]AuReno Velasco Glucose [Mass/Vol] 113 mg/dL Critically high 74-106 T [facility] Comment on above: Performed By: #### P OCGLUC ####[facility] [id number] [place], [place] [address]AdDr. Mirian Velasco XR FOOT RT 2Von 10-17-2022 [...] NICKI DACOSTA Date: 2022-10-17 18:04 Normal [facility] Covid-19 PCR (CVDTB)on SARS-CoV-2 (COVID-19) RNA [...] for this test is supported by the [place] of [employer] and Human Service's (HHS's) declaration [...] SARS-CoV-2. Performed By: #### C VDTBH #### [facility] [address] [place], [place] [address] Dr. Mirian Velasco Diagnostic Mammogram, Unilat eral [...] VERY IMPORTANT TO YOUR HEALTH. THE CURRENT [place] COLLE[employer] OF RADIOLOGY AND NATIONAL COMPREHENSIVE CANCER NETWORK GUIDELINES RECOMMENDS ANNUAL MAMMOGRAPHY BEGINNING AT AGE 42 THIS FACILITY USES A REMINDER SYSTEM TO ENSURE ALL PATIENTS RECEIVE REMINDER NOTIFICATIONS AT THE APPROPRIATE TIME BASED ON THE RECOMMENDATIONS OF THIS EXAM. Board Certified Radiologist. Accredited by the ACR and FDA. Report reported and signed by Dawna Lizarraga on 09/28/2022 1307 Normal [facility] CBC AUTO DIFFon 09-26-2022 BASO # 0.1 103/ul Normal 0.0-0.1 [facility] Comment on above: Performed By: #### L ACT #### [facility] [address] [address] [address] Mirian Velasco Basophils/100 WBC (Bld) 0.8 % Normal 0.2-2.0 [facility] Comment on above: Performed By: #### L ACT #### [facility] [address] [address] [address] Mirian Velasco EO # 0.1 103/ul Normal 0.0-0.7 [facility] Comment on above: Performed By: #### L ACT #### [facility] [address] [address] [address] Mirian Velasco Eosinophils/100 WBC (Bld) 1.5 % Normal 0.9-7.0 [facility] Comment on above: Performed By: #### L ACT #### [facility] [address] [address] [address] Mirian Velasco Erythrocyte distribution width (RBC) [Ratio] 13.4 % Normal 11.0-15.0 [facility] Comment on above: Performed By: #### L ACT #### [facility] [address] [address] [address] Mirian Velasco Hematocrit (Bld) [Volume fraction] 41.3 % Normal 36.0-48.0 [facility] Comment on above: Performed By: #### L ACT #### [facility] [address] [address] [address] Mirian Velasco Hemoglobin (Bld) [Mass/Vol] 13.4 g/dL Normal 12.0-16.0 [facility] Comment on above: Performed By: #### L ACT #### [facility] [address] [address] [address] Mirian Velasco IG # 0.04 10e3/ul Critically high 0.00-0.03 [facility] Comment on above: Performed By: #### L ACT #### [facility] [address] [address] [address] Mirian Velasco IG % 0.5 % Normal 0.0-0.5 [facility] Comment on above: Performed By: #### L ACT #### [facility] [address] [address] [address] Mirian Velasco LYMPH # 2.5 103/ul Normal 1.2-3.8 [facility] Comment on above: Performed By: #### L ACT #### [facility] [address] [address] [address] Mirian Velasco Lymphocytes/100 WBC (Bld) 27.7 % Normal 20.5-60.0 [facility] Comment on above: Performed By: #### L ACT #### [facility] [address] [address] [address] Mirian Velasco MANUAL DIFF REQ NO Normal [facility] Comment on above: Performed By: #### L ACT #### [facility] [address] [address] [address] Mirian Velasco MCH (RBC) [Entitic mass] 27.6 pg Normal 26.7-34.0 [facility] Comment on above: Performed By: #### L ACT #### [facility] [address] [address] [address] Mirian Velasco MCHC (RBC) [Mass/Vol] 32.4 g/dL Normal 29.9-35.2 [facility] Comment on above: Performed By: #### L ACT #### [facility] [address] [address] [address] Mirian Velasco MCV (RBC) [Entitic vol] 85.0 fL Normal 81.0-99.0 [facility] Comment on above: Performed By: #### L ACT #### [facility] [address] [address] [address] Mirian Velasco MONO # 0.6 103/ul Normal 0.3-0.8 [facility] Comment on above: Performed By: #### L ACT #### [facility] [address] [address] [address] Mirian Velasco Monocytes/100 WBC (Bld) 6.9 % Normal 1.7-12.0 [facility] Comment on above: Performed By: #### L ACT #### [facility] [address] [address] [address] Mirian Velasco NEUT # 5.6 103/ul Normal 1.4-6.5 [facility] Comment on above: Performed By: #### L ACT #### [facility] [address] [address] [address] Mirian Velasco Neutrophils/100 WBC (Bld) 62.6 % Normal 43.0-75.0 [facility] Comment on above: Performed By: #### L ACT #### [facility] [address] [address] [address] Mirian Velasco Platelet mean volume (Bld) [Entitic vol] 8.6 fL Critically low 9.5-13.5 [facility] Comment on above: Performed By: #### L ACT #### [facility] [address] [address] [address] Mirian Velasco PLT 372 103/ul Normal 150-450 [facility] Comment on above: Performed By: #### L ACT #### [facility] [address] [place] [address] Dr. Mirian Velasco RBC 4.86 106/ul Normal 4.20-5.40 [facility] Comment on above: Performed By: #### L ACT #### [facility] [address] [place] [address] Dr. Mirian Velasco WBC 8.9 103/ul Normal 4.0-11.0 [facility] Comment on above: Performed By: #### L ACT #### [facility] [address] [place] [address] Dr. Mirian Velasco PROF CHEM 8 (BAS METB)on Anion gap [Moles/Vol] 8.0 mmol/L Normal [facility] Comment on above: Performed By: #### P T #### [facility] [address] [place] [address] Dr. Mirian Velasco Calcium [Mass/Vol] 9.0 mg/dL Normal 8.5-10.1 [facility] Comment on above: Performed By: #### P T #### [facility] [address] [place] [address] Dr. Mirian Velasco Chloride [Moles/Vol] 106 mmol/L Normal 98-107 [facility] Comment on above: Performed By: #### P T #### [facility] [address] [place] [address] Dr. Mirian Velasco CO2 [Moles/Vol] 30.3 mmol/L Normal 21.0-32.0 [facility] Comment on above: Performed By: #### P T #### [facility] [address] [place] [address] Dr. Mirian Velasco Creatinine [Mass/Vol] 0.71 mg/dL Normal 0.55-1.02 [facility] Comment on above: Performed By: #### P T #### [facility] [address] [place] [address] Dr. Mirian Velasco EGFR-AF [place] >60 Normal >=60 [facility] Comment on above: Performed By: #### P T #### [facility] [address] [place], [place] [id number] Dr. Mirian Velasco EGFR-NON AF [place] >60 Normal >=60 [facility] Comment on above: Performed By: #### P T #### [facility] [address] [address] [address] Mirian Velasco Glucose [Mass/Vol] 81 mg/dL Normal 74-106 [facility] Comment on above: Performed By: #### P T #### [facility] [address] [address] [address] Mirian Velasco Potassium [Moles/Vol] 4.3 mmol/L Normal 3.5-5.1 [facility] Comment on above: Performed By: #### P T #### [facility] [address] [address] [address] Mirian Velasco Sodium [Moles/Vol] 140 mmol/L Normal 136-145 [facility] Comment on above: Performed By: #### P T #### [facility] [address] [address] [address] Mirian Velasco Urea nitrogen [Mass/Vol] 16.0 mg/dL Normal 7.0-18.0 [facility] Comment on above: Performed By: #### P T #### [facility] [address] [address] [address] Mirian Velasco Urea nitrogen/Creatinine [Mass ratio] 22.5 mg/mg Normal [facility] Comment on above: Performed By: #### P T #### [facility] [address] [address] [address] Mirian Velasco C reactive protein [Mass/vol ume] in Serum or PlasmaOrdered By: Beto Snyder on 09-22-2022 CRP [Mass/Vol] 0.6 mg/dL 0.0-1.0 [facility] C-Reactive Proteinon 022 C-Reactive Protein 0.6 mg/dL Normal 0.0-1.0 mg/dL [facility] [employer] Other Erythrocyte Sedimentation Ra lian 09-22-2022 ESR (Bld) [Velocity] 4 mm/h Normal 0-29 [facility] [employer] Other Erythrocyte sedimentation ra te by Photometric methodOrdered By: Beto Snyder on 09-22-2022 ESR Photometric method (Bld) [Velocity] 4 mm/hr 0-29 [facility] Serum nuclear antibody titer Ordered By: Beto Snyder on 09-22-2022 Nuclear Ab (S) [Titer] Negative . [facility] Comment on above: Negative <1:80 Julio jasso 1:80 Positive >1:80ICAP nomenclature: AC-0For more information about Hep-2 cell patterns useANApatterns.org, the official website for theInternational Consensus on Antinuclear Antibody (CHUYITA)Patterns (ICAP).Performed at: [facility] [address] [id number] Director: Erick Neville PhD, Phone: [phone] Serum or plasma rheumatoid f actor measurement (units/volume)Ordered By: Beto Snyder on 09-22-2022 Rheumatoid factor Qn [IU]/mL <14.0 [facility] Comment on above: Performed at: [facility] [address] [id number] Director: Erick Neville PhD, Phone: [phone] Serum or plasma thyroxine (T 4) measurement (mass/volume)Ordered By: Beto Snyder on 09-22-2022 T4 [Mass/Vol] 9.82 ug/dL 5.39-11.82 [facility] Serum or plasma uric acid me asurement (mass/volume)Ordered By: Beto Snyder on 09-22-2022 Urate [Mass/Vol] 4.2 mg/dL 2.6-7.2 [facility] TSH DL <= 0.005 mIU/L QnOrde red By: Beto Snyder on 09-22-2022 TSH Qn 1.98 m[IU]/L 0.45-5.33 [facility] Thyroid Stimulating Hormoneo n 09-22-2022 TSH Qn [id number] m[IU]/L Normal 0.45-5 .33 u[iU]/mL [place] [employer] Other Thyroxine (T4) Totalon 09-22 Thyroxine (T4) Total 9.82 ug/dL Normal 5.39-11 .82 ug/dL [employer] Other Uric Acidon 09-22-2022 Urate [Mass/Vol] 4.4769751 mg/dL Normal 2.6-7.2 mg/dL [employer] Other XR knee BI 2Von 09-22-2022 XR knee BI 2V [facility] [employer] Other XR knee BI 2V [facility] [employer] Other XR knee BI 2V [address] [place] [address] [employer] Other XR [place] 2[place] [address] [facility] [employer] Other XR knee BI 2V [facility] [employer] Other XR knee BI 2V Signed [employer] Other XR knee BI 2V Patient: Darrian Leal jonathan Keys MR#: [id number] [place] [employer] Other XR knee BI 2V 863 [employer] Other XR knee BI 2V : 1970 Acct:[id number] [employer] Other XR knee BI 2V Age/Sex: 52 / F ADM Date: 09/22/22 [employer] Other XR knee BI 2V Loc: [facility] Room: Type : [facility] [employer] Other XR knee BI 2V Attending Dr: Beto Snyder MD [employer] Other XR knee BI 2V Copies to: Beto Snyder MD [employer] Other XR knee BI 2V Ordering Provider: Beto Snyder MD [employer] Other XR knee BI 2V Date of Service: 09/22/22 [employer] Other XR knee BI 2V XR/XR knee BI 2V: Knee pain [employer] Other XR knee BI 2V XR knee BI 2V 09/22/2022 9:23 AM [employer] Other XR knee BI 2V SIGNS AND SYMPTOMS: Bilateral knee pain right greater than left [employer] Other XR knee BI 2V PROTOCOL: Frontal an d lateral radiographs of the bilateral knees [employer] Other XR knee BI 2V COMPARISON: None [employer] Other XR knee BI 2V FINDINGS: [employer] Other XR knee BI 2V There is evidence of prior ACL repair in the left knee with mild narrowing of the weightbearing [employer] Other XR knee BI 2V joint spaces on the left. The joint spaces are otherwise preserved. There is no fracture or [employer] Other XR knee BI 2V dislocation. No join t effusion or soft tissue swelling. [employer] Other XR knee BI 2V XR/XR knee BI 2V [employer] Other XR knee BI 2V IMPRESSION: [place] [employer] Other XR knee BI 2V Status post ACL repa ir on the left. [facility] Other XR knee BI 2V Mild degenerative changes are noted in the weightbearing joint spaces of the left. [employer] Other XR knee BI 2V No acute bony injury. [employer] Other XR knee BI 2V Impression dictated by: Rajiv Garcia M.D.09/22/2022 2:17 PM [employer] Other XR knee BI 2V Dictation Location: [place] [address] [employer] Other XR knee BI 2V Transcribed By: PWS 09/22/22 1417 [employer] Other XR knee BI 2V Dictated By: Rajiv Garcia II, MD 09/22/22 [facility] [employer] Other XR knee BI 2V Signed By: [employer] Other XR knee BI 2V 09/22/22 1417 [employer] Other XR shoulder BI min 2Von 09-06 XR shoulder BI min 2V XR/XR shoulder BI min 2V: Shoulder pain [employer] Other XR shoulder BI min 2V XR shoulder BI min 2V 09/22/2022 9:23 AM [employer] Other XR shoulder BI min 2V SIGNS AND SYMPTOMS : Bilateral shoulder pain with limited range of motion [employer] Other XR shoulder BI min 2V PROTOCOL: Frontal, Grashey, scapular Y, and axillary views of the bilateral shoulders [employer] Other XR shoulder BI min 2V COMPARISON: 02/26/2018 [employer] Other XR shoulder BI min 2V There has been bon y resorption of the lateral margin of the clavicle on the right suggesting [employer] Other XR shoulder BI min 2V osteomyelitis is w hich may be degenerative or traumatic. Mild hypertrophy of the AC joint is noted. [employer] Other XR shoulder BI min 2V The glenohumeral j oint is preserved on the right. There is subcortical sclerosis greater tuberosity [employer] Other XR shoulder BI min 2V of the right suggesting underlying rotator cuff abnormalities. This is new when compared to the [employer] Other XR shoulder BI min 2V prior exam. The visualized right hemithorax is grossly intact. [employer] Other XR shoulder BI min 2V There is mild hypertrophy of the left acromioclavicular joint. There is mild subcortical sclerosis [employer] Other XR shoulder BI min 2V of the greater tuberosity in the left suggesting underlying rotator cuff abnormalities. The [employer] Other XR shoulder BI min 2V glenohumeral joint is preserved. There is no fracture or dislocation. Visualized left hemithorax is [employer] Other XR shoulder BI min 2V grossly intact. [employer] Other XR shoulder BI min 2V There is partial visualization of intervertebral disc arthroplasty is noted within the lower [employer] Other XR shoulder BI min 2V cervical spine. Rudimentary ribs are noted at C7, right greater than left [employer] Other XR shoulder BI min 2V XR/XR shoulder BI min 2V [employer] Other XR shoulder BI min 2V Degenerative velasco es are noted in the bilateral shoulders with findings suspicious for bilateral [employer] Other XR shoulder BI min 2V rotator cuff abnormalities as above. 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 [employer] Other XR shoulder BI min 2V Rudimentary ribs a re noted at C7, right greater than left [employer] Other XR shoulder BI min 2V Impression dictate d by: Rajiv Garcia M.D.09/22/2022 2:20 PM [employer] Other XR shoulder BI min 2V Transcribed By: KT Thorpe 09/22/22 1426 [employer] Other XR shoulder BI min 2V Dictated By: Rajiv Garcia II, MD 09/22/22 141 [employer] Other XR shoulder BI min 2V 09/22/22 1420 [employer] Other SCREENING MAMMOGRAM W/RUSSEL, BILATERAL*on 09-14-2022 SCREENING [...] IS VERY IMPORTANT TO YOUR HEALTH. CURRENT [place] [employer] GUIDELINES RECOMMENDS ANNUAL MAMMOGRAPHY BEGINNING AT AGE 42. THIS FACILITY USUALLY USES A REMINDER SYSTEM TO ENSURE ALL POSITIONS RECEIVED REMINDER NOTIFICATIONS AT THE TIME BASED ON THE RECOMMENDATIONS OF THIS EXAM. Report reported and signed by Zaida Diaz on 09/16/2022 1334 Normal [facility] Equal Opportunity Officer Tobacco Screening.on 022 Adult depression screening assessment No [facility] DO Work Phone: Tobacco use status [facility] b) No [facility] 250 DO Work Phone: COVID Quick Testingon 2021 Result Negative [facility] Other AMYLASEon 04-17-2022 Amylase [Catalytic activity/Vol] 38 U/L Normal 25-115 [facility] Comment on above: Performed By: #### P T #### [facility] [address] [place] [address] [address] Mirian Velasco CBC AUTO DIFFon 04-17-2022 BASO # 0.1 103/ul Normal 0.0-0.1 [facility] Comment on above: Performed By: #### L ACT #### [facility] [address] [address] [address] Mirian Velasco Basophils/100 WBC (Bld) 1.0 % Normal 0.2-2.0 [facility] Comment on above: Performed By: #### L ACT #### [facility] [address] [address] [address] Mirian Velasco EO # 0.2 103/ul Normal 0.0-0.7 [facility] Comment on above: Performed By: #### L ACT #### [facility] [address] [place] [address] Dr. Mirian Velasco Eosinophils/100 WBC (Bld) 3.3 % Normal 0.9-7.0 [facility] Comment on above: Performed By: #### L ACT #### [facility] [address] [place] [address] Dr. Mirian Velasco Erythrocyte distribution width (RBC) [Ratio] 12.0 % Normal 11.0-15.0 [facility] Comment on above: Performed By: #### L ACT #### [facility] [address] [place] [address] Dr. Mirian Velasco Hematocrit (Bld) [Volume fraction] 37.3 % Normal 36.0-48.0 [facility] Comment on above: Performed By: #### L ACT #### [facility] [address] [place] [address] Dr. Mirian Velasco Hemoglobin (Bld) [Mass/Vol] 12.1 g/dL Normal 12.0-16.0 [facility] Comment on above: Performed By: #### L ACT #### [facility] [address] [place] [address] Dr. Mirian Velasco IG # 0.03 10e3/ul Normal 0.00-0.03 [facility] Comment on above: Performed By: #### L ACT #### [facility] [address] [place] [address] Dr. Mirian Velasco IG % 0.4 % Normal 0.0-0.5 [facility] Comment on above: Performed By: #### L ACT #### [facility] [address] [place] [address] Dr. Mirian Velasco LYMPH # 1.8 103/ul Normal 1.2-3.8 [facility] Comment on above: Performed By: #### L ACT #### [facility] [address] [place] [address] Dr. Mirian Velasco Lymphocytes/100 WBC (Bld) 25.2 % Normal 20.5-60.0 [facility] Comment on above: Performed By: #### L ACT #### [facility] [address] [place] [address] Dr. Mirian Velasco MANUAL DIFF REQ NO Normal [facility] Comment on above: Performed By: #### L ACT #### [facility] [address] [place] [address] Dr. Mirian Velasco MCH (RBC) [Entitic mass] 29.0 pg Normal 26.7-34.0 [facility] Comment on above: Performed By: #### L ACT #### [facility] [address] [place] [address] Dr. Mirian Velasco MCHC (RBC) [Mass/Vol] 32.4 g/dL Normal 29.9-35.2 [facility] Comment on above: Performed By: #### L ACT #### [facility] [address] [place] [address] Dr. Mirian Velasco MCV (RBC) [Entitic vol] 89.4 fL Normal 81.0-99.0 [facility] Comment on above: Performed By: #### L ACT #### [facility] [address] [place] [address] Dr. Mirian Velasco MONO # 0.4 103/ul Normal 0.3-0.8 [facility] Comment on above: Performed By: #### L ACT #### [facility] [address] [place] [address] Dr. Mirian Velasco Monocytes/100 WBC (Bld) 5.8 % Normal 1.7-12.0 [facility] Comment on above: Performed By: #### L ACT #### [facility] [address] [place] [address] Dr. Mirian Velasco NEUT # 4.6 103/ul Normal 1.4-6.5 [facility] Comment on above: Performed By: #### L ACT #### [facility] [address] [address] [address] Mirian Velasco Neutrophils/100 WBC (Bld) 64.3 % Normal 43.0-75.0 [facility] Comment on above: Performed By: #### L ACT #### [facility] [address] [address] [address] Mirian Velasco Platelet mean volume (Bld) [Entitic vol] 8.6 fL Critically low 9.5-13.5 [facility] Comment on above: Performed By: #### L ACT #### [facility] [address] [place] [address] Dr. Mirian Velasco PLT 597 103/ul Critically high 150-450 [facility] Comment on above: Performed By: #### L ACT #### [facility] [address] [address] [address] Mirian Velasco RBC 4.17 106/ul Critically low 4.20-5.40 [facility] Comment on above: Performed By: #### L ACT #### [facility] [address] [address] [address] Mirian Velasco WBC 7.2 103/ul Normal 4.0-11.0 [facility] Comment on above: Performed By: #### L ACT #### [facility] [address] [place] [address] ABD/PELVIS WO CONon [...] MAKENNA TRIPLETT Date: 2022-04-17 11:19 Normal [facility] ER URINE PROFILEon 2 Bilirubin Ql (U) Negative Normal NEGATIVE [facility] Comment on above: Performed By: #### P T #### [facility] [address] [place] [address] Dr. Mirian Velasco Clarity (U) CLEAR Normal CLEAR [facility] Comment on above: Performed By: #### P T #### [facility] [address] [address] [address] Mirian Velasco Color (U) YELLOW Normal YELLOW [facility] Comment on above: Performed By: #### P T #### [facility] [address] [place] [address] Dr. Mirian KING A micrscopic examination will be performed if indicated. Normal [facility] Comment on above: Performed By: #### P T #### [facility] [address] [place] [address] Dr. Mirian Velasco Glucose Ql (U) Negative Normal NEGATIVE [facility] Comment on above: Performed By: #### P T #### [facility] [address] [place] [address] Dr. Mirian Velasco Hemoglobin Ql (U) Negative Normal NEGATIVE [facility] Comment on above: Performed By: #### P T #### [facility] [address] [place] [address] Dr. Mirian Velasco Ketones Ql (U) Negative Normal NEGATIVE [facility] Comment on above: Performed By: #### P T #### [facility] [address] [place] [address] Dr. Mirian Velasco LEUKOCYTES Negative Normal NEGATIVE [facility] Comment on above: Performed By: #### P T #### [facility] [address] [place] [address] Dr. Mirian Velasco Nitrite Ql (U) Negative Normal NEGATIVE [facility] Comment on above: Performed By: #### P T #### [facility] [address] [place] [address] Dr. Mirian Velasco pH (U) 5.5 [pH] Normal 5-9 [facility] Comment on above: Performed By: #### P T #### [facility] [address] [place] [address] Dr. Mirian Velasco SPEC GRAVITY >=1.030 Abnormal 1.005-<=1.025 [facility] Comment on above: Performed By: #### P T #### [facility] [address] [place] [address] Dr. Mirian Velasco UA PROTEIN Negative Normal NEGATIVE/ TRACE [facility] Comment on above: Performed By: #### P T #### [facility] [address] [place] [address] Dr. Mirian Velasco UR MICRO IND NOT INDICATED Normal [facility] Comment on above: Performed By: #### P T #### [facility] [address] [place] [address] Dr. Mirian Velasco Urobilinogen Qn (U) 0.2 {Lyubov'U}/dL Normal 0.2 - 1. 0 [facility] Comment on above: Performed By: #### P T #### [facility] [address] [place] [address] Dr. Mirian Velasco LIPASEon 04-17-2022 Lipase [Catalytic activity/Vol] 117.0 U/L Normal 73.0-393.0 [facility] Comment on above: Performed By: #### P T #### [facility] [address] [place] [address] Dr. Mirian Velasco PROF 14(COMP METB)on 022 Albumin [Mass/Vol] 3.5 g/dL Normal 3.4-5.0 [facility] Comment on above: Performed By: #### P T #### [facility] [address] [place] [address] Dr. Mirian Velasco Albumin/Globulin [Mass ratio] 0.9 {ratio} Normal [facility] Comment on above: Performed By: #### P T #### [facility] [address] [place] [address] Dr. Mirian Velasco ALP [Catalytic activity/Vol] 237 U/L Critically high 46-116 [facility] Comment on above: Performed By: #### P T #### [facility] [address] [place] [address] Dr. Mirian Velasco ALT [Catalytic activity/Vol] 53 U/L Normal 14-59 [facility] Comment on above: Performed By: #### P T #### [facility] [address] [place] [address] Dr. Mirian Velasco Anion gap [Moles/Vol] 11.0 mmol/L Normal [facility] [place] Comment on above: Performed By: #### P T #### [facility] [address] [place] [address] Dr. Mirian Velasco AST [Catalytic activity/Vol] 45 U/L Critically high 15-37 [facility] Comment on above: Performed By: #### P T #### [facility] [address] [place] [address] Dr. Mirian Velasco Bilirubin [Mass/Vol] 0.2 mg/dL Normal 0.2-1.0 [facility] Comment on above: Performed By: #### P T #### [facility] [address] [address] [address] Mirian Velasco Calcium [Mass/Vol] 9.3 mg/dL Normal 8.5-10.1 [facility] Comment on above: Performed By: #### P T #### [facility] [address] [address] [address] Mirian Velasco Chloride [Moles/Vol] 105 mmol/L Normal 98-107 [facility] Comment on above: Performed By: #### P T #### [facility] [address] [place] [address] Dr. Mirian Velasco CO2 [Moles/Vol] 29.5 mmol/L Normal 21.0-32.0 [facility] Comment on above: Performed By: #### P T #### [facility] [address] [place] [address] Dr. Mirian Velasco Creatinine [Mass/Vol] 0.69 mg/dL Normal 0.55-1.02 [facility] Comment on above: Performed By: #### P T #### [facility] [address] [place] [address] Dr. Mirian Velasco EGFR-AF [place] >110 Normal >=60 [facility] Comment on above: Performed By: #### P T #### [facility] [address] [place] [address] Dr. Mirian Velasco EGFR-NON AF [place] >90 Normal >=60 [facility] Comment on above: Performed By: #### P T #### [facility] [address] [place] [address] Dr. Mirian Velasco Globulin (S) [Mass/Vol] 4.0 g/dL Normal [facility] Comment on above: Performed By: #### P T #### [facility] [address] [place] [address] Dr. Mirian Velasco Glucose [Mass/Vol] 107 mg/dL Critically high 74-106 [facility] Comment on above: Performed By: #### P T #### [facility] [address] [place], [place] [address] Dr. Mirian Velasco Potassium [Moles/Vol] 4.5 mmol/L Normal 3.5-5.1 [facility] Comment on above: Performed By: #### P T #### [facility] [address] [place], [place] [address] Dr. Mirian Velasco Protein [Mass/Vol] 7.5 g/dL Normal 6.4-8.2 [facility] Comment on above: Performed By: #### P T #### [facility] [address] [place], [place] [address] Dr. Mirian Velasco Sodium [Moles/Vol] 141 mmol/L Normal 136-145 [facility] Comment on above: Performed By: #### P T #### [facility] [address] [address] [address] Mirian Velasco Urea nitrogen [Mass/Vol] 11.0 mg/dL Normal 7.0-18.0 [facility] Comment on above: Performed By: #### P T #### [facility] [address] [address] [address] Mirian Velasco Urea nitrogen/Creatinine [Mass ratio] 15.9 mg/mg Normal [facility] Comment on above: Performed By: #### P T #### [facility] [address] [place], [place] [address] Dr. Mirian Velasco XR CHEST 1 Von [...] Anion gap [Moles/Vol] 13 mmol/L Normal 9-18 [facility] Comment on above: Order Comment: Speci men Type: BLOOD SPECIMEN Ordering Facility: [facility] Address: [address] [place] [address] Performed By: #### 5 8410-2 #### [facility] CLIA [id number] [address] [place] [address] [place] Calcium [Mass/Vol] 9.0 mg/dL Normal 8.5-10.2 [facility] Comment on above: Order Comment: Speci men Type: BLOOD SPECIMEN Ordering Facility: [facility] Address: [address] [place] [address] Performed By: #### 5 8410-2 #### [facility] CLIA [id number] [address] [place] [address] [place] Chloride [Moles/Vol] 104 mmol/L Normal 97-105 [facility] Comment on above: Order Comment: Speci men Type: BLOOD SPECIMEN Ordering Facility: [facility] Address: [address] [place] [address] Performed By: #### 5 8410-2 #### [facility] CLIA [id number] [address] [place] [address] [place] CO2 [Moles/Vol] 25 mmol/L Normal 22-30 [facility] Comment on above: Order Comment: Speci men Type: BLOOD SPECIMEN Ordering Facility: [facility] Address: [address] [place] [address] Performed By: #### 5 8410-2 #### [facility] CLIA [id number] [address] [place] [address] [place] Creatinine [Mass/Vol] 0.65 mg/dL Normal 0.58-0.96 [facility] Comment on above: Order Comment: Speci men Type: BLOOD SPECIMEN Ordering Facility: [facility] Address: [address] [place] [address] Performed By: #### 5 8410-2 #### [facility] CLIA [id number] [address] [place] [address] [place] ESTIMATED GLOMERULAR FILTRATION RATE 108 mL/min/1.73m??? Normal >=60 [facility] Comment on above: Order Comment: Speci men Type: BLOOD SPECIMEN Ordering Facility: [facility] Address: [address] [id number] Result Comment: Mary mated Glomerular Filtration Rate [...] #### 5 8410-2 #### [facility] CLIA [id number] [address] [place] [address] [place] Glucose [Mass/Vol] 109 mg/dL High 74-99 [facility] Comment on above: Order Comment: Leanne terry Type: BLOOD SPECIMEN Ordering Facility: [facility] Address: [address] [place], [place] [id number] Result Comment: The [place] Diabetes Association (ADA) provides guidance for cutoff [...] Standards of Medical Care in Diabetes 2016, [place] [employer] Association. Diabetes Care. 2016.39(Suppl 1). Performed By: #### 5 8410-2 #### [facility] CLIA [id number] [address] [place] [address] [place] Potassium [Moles/Vol] 3.9 mmol/L Normal 3.7-5.1 [facility] Comment on above: Order Comment: Leanne terry Type: BLOOD SPECIMEN Ordering Facility: [facility] Address: [address] [id number] Performed By: #### 5 8410-2 #### [facility] CLIA [id number] [address] [place] [address] [place] Sodium [Moles/Vol] 142 mmol/L Normal 136-144 [facility] Comment on above: Order Comment: Speci men Type: BLOOD SPECIMEN Ordering Facility: [facility] Address: [address] [place] [address] Performed By: #### 5 8410-2 #### [facility] CLIA [id number] [address] [place] [address] [place] Urea nitrogen [Mass/Vol] 7 mg/dL Normal 7-21 [facility] Comment on above: Order Comment: Speci men Type: BLOOD SPECIMEN Ordering Facility: [facility] Address: [address] [place] [address] Performed By: #### 5 8410-2 #### [facility] CLIA [id number] [address] [place] [address] [place] CBC W Auto Differential pane l (Bld)on 04-05-2022 Basophils (Bld) [#/Vol] 0.05 10*3/uL Normal <0.11 [facility] Comment on above: Order Comment: Speci men Type: BLOOD SPECIMENOrdering Facility: [facility] Address: [address] [place] [address] Performed By: #### B MP #### [place] [phone] Basophils/100 WBC (Bld) 0.7 % Normal [facility] Comment on above: Order Comment: Speci men Type: BLOOD SPECIMENOrdering Facility: [facility] Address: [address] [place] [address] Performed By: #### B MP #### [place] [phone] Differential cell count method Nom (Bld) Auto Normal [facility] Comment on above: Order Comment: Speci men Type: BLOOD SPECIMENOrdering Facility: [facility] Address: [address] [place] [address] Performed By: #### B MP #### [place] [phone] Eosinophils (Bld) [#/Vol] 0.55 10*3/uL High <0.46 [facility] [facility] Comment on above: Order Comment: Speci men Type: BLOOD SPECIMENOrdering Facility: [facility] Address: [address] [place] [address] Performed By: #### B MP #### [place] [id number] Eosinophils/100 WBC (Bld) 8.2 % Normal [facility] Comment on above: Order Comment: Speci men Type: BLOOD SPECIMENOrdering Facility: [facility] Address: [address] [place] [address] Performed By: #### B MP #### [place] [phone] Erythrocyte distribution width (RBC) [Ratio] 12.8 % Normal 11.5-15.0 [facility] Comment on above: Order Comment: Speci men Type: BLOOD SPECIMENOrdering Facility: [facility] Address: [address] [place] [address] Performed By: #### B MP #### [address] Hematocrit (Bld) [Volume fraction] 31.1 % Low 36.0-46.0 [facility] Comment on above: Order Comment: Speci men Type: BLOOD SPECIMENOrdering Facility: [facility] Address: [address] [place] [address] Performed By: #### B MP #### [place] [phone] Hemoglobin (Bld) [Mass/Vol] 10.5 g/dL Low 11.5-15.5 [facility] Comment on above: Order Comment: Speci men Type: BLOOD SPECIMENOrdering Facility: [facility] Address: [address] [place] [address] Performed By: #### B MP #### [place] [phone] IMMATURE GRAN % 0.4 % Normal [facility] Comment on above: Order Comment: Speci men Type: BLOOD SPECIMENOrdering Facility: [facility] Address: [address] [place] [address] Performed By: #### B MP #### [place] [address] IMMATURE GRAN ABS 0.03 k/uL Normal <0.10 [facility] Comment on above: Order Comment: Speci men Type: BLOOD SPECIMENOrdering Facility: [facility] Address: [address] [place] [address] Performed By: #### B MP #### [address] Lymphocytes (Bld) [#/Vol] 1.47 10*3/uL Normal 1.00-4.00 [facility] Comment on above: Order Comment: Speci men Type: BLOOD SPECIMENOrdering Facility: [facility] Address: [address] [place] [address] Performed By: #### B MP #### [address]476[address] Lymphocytes/100 WBC (Bld) 22.0 % Normal [facility] Comment on above: Order Comment: Speci men Type: BLOOD SPECIMENOrdering Facility: [facility] Address: [address] [place] [address] Performed By: #### B MP #### [address]476[address] MCH (RBC) [Entitic mass] 29.9 pg Normal 26.0-34.0 [facility] Comment on above: Order Comment: Speci men Type: BLOOD SPECIMENOrdering Facility: [facility] Address: [address] [place] [address] Performed By: #### B MP #### [phone] MCHC (RBC) [Mass/Vol] 33.8 g/dL Normal 30.5-36.0 [facility] Comment on above: Order Comment: Speci men Type: BLOOD SPECIMENOrdering Facility: [facility] Address: [address] [place] [address] Performed By: #### B MP #### [place] [phone] MCV (RBC) [Entitic vol] 88.6 fL Normal 80.0-100.0 [facility] Comment on above: Order Comment: Speci men Type: BLOOD SPECIMENOrdering Facility: [facility] Address: [address] [place] [address] Performed By: #### B MP #### [address]476[address] Monocytes (Bld) [#/Vol] 0.50 10*3/uL Normal <0.87 [facility] Comment on above: Order Comment: Speci men Type: BLOOD SPECIMENOrdering Facility: [facility] Address: [address] [place] [address] Performed By: #### B MP #### [place] [phone] Monocytes/100 WBC (Bld) 7.5 % Normal [facility] Comment on above: Order Comment: Speci men Type: BLOOD SPECIMENOrdering Facility: [facility] Address: [address] [place] [address] Performed By: #### B MP #### [address]476[address] Neutrophils (Bld) [#/Vol] 4.08 10*3/uL Normal 1.45-7.50 [facility] Comment on above: Order Comment: Speci men Type: BLOOD SPECIMENOrdering Facility: [facility] Address: [address] [place] [address] Performed By: #### B MP #### [address]476[address] Neutrophils/100 WBC (Bld) 61.2 % Normal [facility] Comment on above: Order Comment: Speci men Type: BLOOD SPECIMENOrdering Facility: [facility] Address: [address] [place] [address] Performed By: #### B MP #### [place] [phone] Nucleated RBC (Bld) [#/Vol] 10*3/uL Normal <0.01 [facility] Comment on above: Order Comment: Speci men Type: BLOOD SPECIMENOrdering Facility: [facility] Address: [address] [place] [address] Performed By: #### B MP #### [address]476[address] Nucleated RBC/100 WBC (Bld) [Ratio] 0.0 /100 WBC Normal [facility] Comment on above: Order Comment: Speci men Type: BLOOD SPECIMENOrdering Facility: [facility] Address: [address] [place] [address] Performed By: #### B MP #### [address]476[address] Platelet mean volume (Bld) [Entitic vol] 8.9 fL Low 9.0-12.7 [facility] Comment on above: Order Comment: Speci men Type: BLOOD SPECIMENOrdering Facility: [facility] Address: [address] [place] [address] Performed By: #### B MP #### [address]476[address] Platelets (Bld) [#/Vol] 455 10*3/uL High 150-400 [facility] Comment on above: Order Comment: Speci men Type: BLOOD SPECIMENOrdering Facility: [facility] Address: [address] [place] [address] Performed By: #### B MP #### [place] [phone] RBC (Bld) [#/Vol] 3.51 10*6/uL Low 3.90-5.20 [facility] Comment on above: Order Comment: Speci men Type: BLOOD SPECIMENOrdering Facility: [facility] Address: [address] [place], [place] [address] Performed By: #### B MP #### [place] [id number] [place] [address] WBC (Bld) [#/Vol] 6.68 10*3/uL Normal 3.70-11.00 [facility] Comment on above: Order Comment: Speci men Type: BLOOD SPECIMENOrdering Facility: [facility] Address: [address] Performed By: #### B MP #### [place] [id number] [place] [address] CNDSon 04-05-2022 CNDS HNO ID: [id number] Author: Jessi Sheets APRN.[employer] SPECIAL AGENT Service: Colorectal Author Type: Nurse Practitioner Type: Discharge Summary Filed: 04/05/2022 11:10 AM Note Text: Attestation signed by Mary Obrien MD at 04/05/2022 12:54 PM [facility] STAFF PHYSICIAN NOTE OF PERSONAL [...] of the summary. CONSULTING TEAMS DURING HOSPITALIZATION: [facility] Treatment Team: Attending Provider: Mary Obrien [...] only. Pain controlled with TAPs and a PEER EDUCATOR. Remained nauseated. POD4 re-advanced to full liquids [...] mo (more content not included)... Normal [facility] Magnesium SerPl-mCncon 04-05 Magnesium [Mass/Vol] 2.0 mg/dL Normal 1.7-2.3 [facility] Comment on above: Order Comment: Speci men Type: BLOOD SPECIMEN [facility] Address: [facility] [place] [address] Performed By: #### 5 8410-2 #### [facility] CLIA [id number] [address] [place] [address] [place] NURSING PROGon 04-05-2022 NURSING PROG HNO ID: [id number] Author: Liliana Mayer RN Service: ? 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 This note was completed by: Liliana Mayer [facility] NURSING PROG HNO ID: [id number] Author: Liliana Mayer RN Service: ? Author [...] This note was completed by: Liliana Mayer [facility] NURSING PROG HNO ID: [id number] Author: Tez Gu RN Service: ? Author Type: Registered Nurse Type: Nursing Progress Note Filed: 04/04/2022 10:58 PM Note Text: Nursing Progress Note Patient Name: Mary BERKOWITZN: [id number] Patient Location: / __ Daily Note:04/04/22 2140 Pt is alert and oriented x3. Pt mabulating independently. Surgical sites intact. Pt refusing IVF, pt states she drinks enough water. This note was completed by: Tez Gu [facility] NUTRITIONon 04-05-2022 NUTRITION HNO ID: [id number] Author: Merced Morales DTR Service: Nutrition Therapy Author Type: Mathematician Research Type: Nutrition Filed: 04/05/2022 10:42 AM Note Text: NUTRITION THERAPY JOY OPERATOR HELPER NOTE SERVICE DATE: 04/05/2022 SERVICE TIME: 9:45 [...] DATE: April 05, 2022 TIME: 9:54 AM [facility] Phosphate SerPl-mCncon 04-05 Phosphate [Mass/Vol] 4.6 mg/dL Normal 2.7-4.8 [facility] Comment on above: Order Comment: Speci men Type: BLOOD SPECIMEN [facility] Address: [address] [place] [address] Performed By: #### 5 8410-2 #### [facility] CLIA [id number] [address] [place] [id number] [place] Basic metabolic 2000 panelon 04-04-2022 Anion gap [Moles/Vol] 10 mmol/L Normal 9-18 [facility] Comment on above: Order Comment: Speci men Type: BLOOD SPECIMENOrdering Facility: [facility] Address: [address] [place] [address] Performed By: #### 2 4321-2, , 2776-11 ####[facility] [id number] [place] [address] [place] Calcium [Mass/Vol] 8.9 mg/dL Normal 8.5-10.2 [facility] Comment on above: Order Comment: Speci men Type: BLOOD SPECIMENOrdering Facility: [facility] Address: [address] [place] [address] Performed By: #### 2 4321-2, , 2776- ####[facility]ORYCLIA [id number] [place] [address] [place] Chloride [Moles/Vol] 104 mmol/L Normal 97-105 [facility] Comment on above: Order Comment: Speci men Type: BLOOD SPECIMENOrdering Facility: [facility] Address: [address] [place] [address] Performed By: #### 2 4321-2, , 2776- ####[facility]ORYCLIA [id number] [place] [id number] [place] CO2 [Moles/Vol] 26 mmol/L Normal 22-30 [facility] Comment on above: Order Comment: Speci men Type: BLOOD SPECIMENOrdering Facility: [facility] Address: [address] [place] [address] Performed By: #### 2 4321-2, , 2776-11 ####[facility] [id number] [place] [id number] [place] Creatinine [Mass/Vol] 0.56 mg/dL Low 0.58-0.96 [facility] Comment on above: Order Comment: Speci men Type: BLOOD SPECIMENOrdering Facility: [facility] Address: [address] [place] [address] Performed By: #### 2 4321-2, , 2776-11 ####[facility]ORYCLIA [id number] [place] [address] [place] ESTIMATED GLOMERULAR FILTRATION RATE 112 mL/min/1.73m??? Normal >=60 [facility] Comment on above: Order Comment: Speci men Type: BLOOD SPECIMENOrdering Facility: [facility] Address: [address] [place] [address] Result Comment: Mary mated Glomerular Filtration Rate [...] #### 2 4321-2, , 2776-11 ####[facility] [id number] [place] [id number] [place] Glucose [Mass/Vol] 112 mg/dL High 74-99 [facility] Comment on above: Order Comment: Speci men Type: BLOOD SPECIMENOrdering Facility: [facility] Address: [address] [place] [address] Result Comment: The [place] Diabetes Association (ADA) provides guidance for cutoff [...] Standards of Medical Care in Diabetes 2016, [place] [employer]. Diabetes Care. 2016.39(Suppl 1). Performed By: #### 2 4321-2, , 2776-11 ####[facility] [id number] [place] [id number] [place] Potassium [Moles/Vol] 3.9 mmol/L Normal 3.7-5.1 [facility] Comment on above: Order Comment: Leanne terry Type: BLOOD SPECIMENOrdering Facility: [facility] Address: [address] [place] [address] Performed By: #### 2 4321-2, , 2776-11 ####[facility] [id number] [place] [id number] [place] Sodium [Moles/Vol] 140 mmol/L Normal 136-144 [facility] Comment on above: Order Comment: Leanne terry Type: BLOOD SPECIMENOrdering Facility: [facility] Address: [address] [place] [address] Performed By: #### 2 4321-2, , 2776-11 ####[facility] [id number] [place] [id number] [place] Urea nitrogen [Mass/Vol] 3 mg/dL Low 7-21 [facility] Comment on above: Order Comment: Leanne terry Type: BLOOD SPECIMENOrdering Facility: [facility] Address: [facility] [address] Performed By: #### 2 4321-2, , 2776-11 ####[facility] [id number] [place] [id number] [place] CBC W Auto Differential pane l (Bld)on 04-04-2022 Basophils (Bld) [#/Vol] 0.03 10*3/uL Normal <0.11 [facility] Comment on above: Order Comment: Speci men Type: BLOOD SPECIMEN [facility] Address: [address] [place] [address] Performed By: #### 5 7021-8 #### [facility] CLIA [id number] [address] [place] [address] [place] Basophils/100 WBC (Bld) 0.5 % Normal [facility] Comment on above: Order Comment: Speci men Type: BLOOD SPECIMEN [facility] Address: [address] [place] [address] Performed By: #### 5 7021-8 #### [facility] CLIA [id number] [address] [place] [address] [place] Differential cell count method Nom (Bld) Auto Normal [facility] Comment on above: Order Comment: Speci men Type: BLOOD SPECIMEN [facility] Address: [address] [place] [address] Performed By: #### 5 7021-8 #### [facility] CLIA [id number] [address] [place] [address] [place] Eosinophils (Bld) [#/Vol] 0.48 10*3/uL High <0.46 [facility] Comment on above: Order Comment: Speci men Type: BLOOD SPECIMEN [facility] Address: [address] [place] [address] Performed By: #### 5 7021-8 #### [facility] CLIA [id number] [address] [place] [address] [place] Eosinophils/100 WBC (Bld) 7.7 % Normal [facility] Comment on above: Order Comment: Speci men Type: BLOOD SPECIMEN [facility] Address: [address] [place] [address] Performed By: #### 5 7021-8 #### [facility] CLIA [id number] [address] [place] [address] [place] Erythrocyte distribution width (RBC) [Ratio] 12.7 % Normal 11.5-15.0 [facility] Comment on above: Order Comment: Speci men Type: BLOOD SPECIMEN [facility] Address: [address] [place] [address] Performed By: #### 5 7021-8 #### [facility] CLIA [id number] [address] [place] [address] [place] Hematocrit (Bld) [Volume fraction] 31.2 % Low 36.0-46.0 [facility] Comment on above: Order Comment: Speci men Type: BLOOD SPECIMEN [facility] Address: [address] [place] [address] Performed By: #### 5 7021-8 #### [facility] CLIA [id number] [address] [place] [address] [place] Hemoglobin (Bld) [Mass/Vol] 10.7 g/dL Low 11.5-15.5 [facility] Comment on above: Order Comment: Speci men Type: BLOOD SPECIMEN [facility] Address: [address] [place] [address] Performed By: #### 5 7021-8 #### [facility] CLIA [id number] [address] [place] [address] IMMATURE GRAN % 0.5 % Normal [facility] Comment on above: Order Comment: Speci men Type: BLOOD SPECIMEN [facility] Address: [address] [place] [address] Performed By: #### 5 7021-8 #### [facility] CLIA [id number] [address] [place] [address] [place] IMMATURE GRAN ABS 0.03 k/uL Normal <0.10 [facility] Comment on above: Order Comment: Speci men Type: BLOOD SPECIMEN [facility] Address: [address] [place] [address] Performed By: #### 5 7021-8 #### [facility] CLIA [id number] [address] [place] [address] [place] Lymphocytes (Bld) [#/Vol] 1.13 10*3/uL Normal 1.00-4.00 [facility] Comment on above: Order Comment: Speci men Type: BLOOD SPECIMEN [facility] Address: [address] [place] [address] Performed By: #### 5 7021-8 #### [facility] CLIA [id number] [address] [place] [address] [place] Lymphocytes/100 WBC (Bld) 18.2 % Normal [facility] Comment on above: Order Comment: Speci men Type: BLOOD SPECIMEN [facility] Address: [address] [place] [address] Performed By: #### 5 7021-8 #### [facility] CLIA [id number] [address] [place] [address] [place] MCH (RBC) [Entitic mass] 29.9 pg Normal 26.0-34.0 [facility] Comment on above: Order Comment: Speci men Type: BLOOD SPECIMEN [facility] Address: [address] [place] [address] Performed By: #### 5 7021-8 #### [facility] CLIA [id number] [address] [place] [address] [place] MCHC (RBC) [Mass/Vol] 34.3 g/dL Normal 30.5-36.0 [facility] Comment on above: Order Comment: Speci men Type: BLOOD SPECIMEN [facility] Address: [address] [place] [address] Performed By: #### 5 7021-8 #### [facility] CLIA [id number] [address] [place] [address] MCV (RBC) [Entitic vol] 87.2 fL Normal 80.0-100.0 [facility] Comment on above: Order Comment: Speci men Type: BLOOD SPECIMEN [facility] Address: [address] [place] [address] Performed By: #### 5 7021-8 #### [facility] CLIA [id number] [address] [place] [address] [place] Monocytes (Bld) [#/Vol] 0.36 10*3/uL Normal <0.87 [facility] Comment on above: Order Comment: Speci men Type: BLOOD SPECIMEN [facility] Address: [address] [place] [address] Performed By: #### 5 7021-8 #### [facility] CLIA [id number] [address] [place] [address] [place] Monocytes/100 WBC (Bld) 5.8 % Normal [facility] Comment on above: Order Comment: Speci men Type: BLOOD SPECIMEN [facility] Address: [address] [place] [address] Performed By: #### 5 7021-8 #### [facility] CLIA [id number] [address] [place] [address] [place] Neutrophils (Bld) [#/Vol] 4.18 10*3/uL Normal 1.45-7.50 [facility] Comment on above: Order Comment: Speci men Type: BLOOD SPECIMEN [facility] Address: [address] [place] [address] Performed By: #### 5 7021-8 #### [facility] CLIA [id number] [address] [place] [address] [place] Neutrophils/100 WBC (Bld) 67.3 % Normal [facility] Comment on above: Order Comment: Speci men Type: BLOOD SPECIMEN [facility] Address: [address] [place] [address] Performed By: #### 5 7021-8 #### [facility] CLIA [id number] [address] [place] [address] [place] Nucleated RBC (Bld) [#/Vol] 10*3/uL Normal <0.01 [facility] Comment on above: Order Comment: Speci men Type: BLOOD SPECIMEN [facility] Address: [address] [place] [address] Performed By: #### 5 7021-8 #### [facility] CLIA [id number] [address] [place] [address] [place] Nucleated RBC/100 WBC (Bld) [Ratio] 0.0 /100 WBC Normal [facility] Comment on above: Order Comment: Speci men Type: BLOOD SPECIMEN [facility] Address: [address] [place] [address] Performed By: #### 5 7021-8 #### [facility] CLIA [id number] [address] [place] [address] [place] Platelet mean volume (Bld) [Entitic vol] 8.7 fL Low 9.0-12.7 [facility] Comment on above: Order Comment: Speci men Type: BLOOD SPECIMEN [facility] Address: [address] [place] [address] Performed By: #### 5 7021-8 #### [facility] CLIA [id number] [address] [place] [address] [place] Platelets (Bld) [#/Vol] 436 10*3/uL High 150-400 [facility] Comment on above: Order Comment: Speci men Type: BLOOD SPECIMEN [facility] Address: [address] [place], [place] [address] Performed By: #### 5 7021-8 #### [facility] CLIA [id number] [address] [place] [address] [place] RBC (Bld) [#/Vol] 3.58 10*6/uL Low 3.90-5.20 [facility] Comment on above: Order Comment: Speci men Type: BLOOD SPECIMEN [facility] Address: [address] [place] [address] Performed By: #### 5 7021-8 #### [facility] CLIA [id number] [address] [place] [address] [place] WBC (Bld) [#/Vol] 6.21 10*3/uL Normal 3.70-11.00 [facility] Comment on above: Order Comment: Speci men Type: BLOOD SPECIMEN [facility] Address: [address] [place] [address] Performed By: #### 5 7021-8 #### [facility] CLIA [id number] [place] Magnesium SerPl-mCncon 04-04 Magnesium [Mass/Vol] 2.1 mg/dL Normal 1.7-2.3 [facility] Comment on above: Order Comment: Speci men Type: BLOOD SPECIMENOrdering Facility: [facility] Address: [address] [place] [address] Performed By: #### 2 4321-2, 68453-9, 2777-1 ####[facility] [id number] [address] OF [facility] NURSING PROGon 04-04-2022 NURSING PROG HNO ID: [id number] Author: Dipti Crowley RN Service: Nursing Author Type: Registered Nurse Type: Nursing Progress Note Filed: 04/04/2022 7:47 PM Note Text: Nursing Progress Note Patient Name: Mary Leal Patient Location: [id number] __ Daily Note:Patient refusing further IVF. This note was completed by: Dipti Crowley [facility] NURSING PROG HNO ID: [id number] Author: Dipti Crowley RN Service: Nursing Author Type: Registered Nurse Type: Nursing Progress Note Filed: 04/04/2022 11:11 AM Note Text: Nursing Progress Note Patient Name: Mary Leal Patient Location: [place] [address]/[id number] __ Daily Note: Patient up in chair [...] notified, but post call. 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 Will continue to monitor. Call light in reach. This note was completed by: Dipti Crowley [facility] Phosphate SerPl-mCvineeton 04-04 Phosphate [Mass/Vol] 3.2 mg/dL Normal 2.7-4.8 [facility] Comment on above: Order Comment: Speci men Type: BLOOD SPECIMENOrdering Facility: [facility] Address: [address] [place] [address] Performed By: #### 2 4321-2, 59295-4, 2777-1 ####[facility] LABORATORYCLIA [id number] [address] [facility] ALLIED HEALTH 04-03-2022 ALLIED HEALTH HNO ID: [id number] Author: Carmen Daley, MALAIKA Service: ? Author Type: Urology Physician Type: Allied Health Filed: 04/03/2022 5:35 PM [...] April 03, 2022 5:35 PM Normal [facility] Basic metabolic 2000 panelon 04-03-2022 Anion gap [Moles/Vol] 10 mmol/L Normal 9-18 [facility] Comment on above: Order Comment: Speci men Type: BLOOD SPECIMENOrdering Facility: [facility] Address: [address] [place] [address] Performed By: #### B MP #### [place] [phone] Calcium [Mass/Vol] 8.4 mg/dL Low 8.5-10.2 [facility] Comment on above: Order Comment: Speci men Type: BLOOD SPECIMENOrdering Facility: [facility] Address: [address] [place] [address] Performed By: #### B MP #### [place] [phone] Chloride [Moles/Vol] 103 mmol/L Normal 97-105 [facility] Comment on above: Order Comment: Speci men Type: BLOOD SPECIMENOrdering Facility: [facility] Address: [address] [place] [address] Performed By: #### B MP #### [place] [phone] CO2 [Moles/Vol] 25 mmol/L Normal 22-30 [facility] Comment on above: Order Comment: Speci men Type: BLOOD SPECIMENOrdering Facility: [facility] Address: [address] [place] [address] Performed By: #### B MP #### [place] [phone] Creatinine [Mass/Vol] 0.60 mg/dL Normal 0.58-0.96 [facility] Comment on above: Order Comment: Leanne harrison Type: BLOOD SPECIMENOrdering Facility: [facility] Address: [address] [phone] Performed By: #### B MP #### [place] [id number] [place] [address] ESTIMATED GLOMERULAR FILTRATION RATE 110 mL/min/1.73m??? Normal >=60 [facility] Comment on above: Order Comment: Leanne terry Type: BLOOD SPECIMENOrdering Facility: [facility] Address: [address] [place], [place] [id number] Result Comment: Mary mated Glomerular Filtration Rate [...] GFR. Performed By: #### B MP #### [place] [address] Glucose [Mass/Vol] 106 mg/dL High 74-99 [facility] Comment on above: Order Comment: Leanne terry Type: BLOOD SPECIMENOrdering Facility: [facility] Address: [address] [place], [place] [address] Result Comment: The [place] Diabetes Association (ADA) provides guidance for cutoff [...] Standards of Medical Care in Diabetes 2016, [place] [employer]. Diabetes Care. 2016.39(Suppl 1). Performed By: #### B MP #### [place] [address] Potassium [Moles/Vol] 3.3 mmol/L Low 3.7-5.1 [facility] Comment on above: Order Comment: Speci men Type: BLOOD SPECIMENOrdering Facility: [facility] Address: [address] [place] [address] Performed By: #### B MP #### [place] [phone] Sodium [Moles/Vol] 138 mmol/L Normal 136-144 [facility] Comment on above: Order Comment: Speci men Type: BLOOD SPECIMENOrdering Facility: [facility] Address: [address] [place] [address] Performed By: #### B MP #### [place] [phone] Urea nitrogen [Mass/Vol] 4 mg/dL Low 7-21 [facility] Comment on above: Order Comment: Speci men Type: BLOOD SPECIMENOrdering Facility: [facility] Address: [address] [place] [address] Performed By: #### B MP #### [place] [phone] CBC W Auto Differential pane l (Bld)on 04-03-2022 Basophils (Bld) [#/Vol] 0.03 10*3/uL Normal <0.11 [facility] Comment on above: Order Comment: Speci men Type: BLOOD SPECIMENOrdering Facility: [facility] Address: [address] [place] [address] Performed By: #### B MP #### [phone] Basophils/100 WBC (Bld) 0.4 % Normal [facility] Comment on above: Order Comment: Speci men Type: BLOOD SPECIMENOrdering Facility: [facility] Address: [address] [place] [address] Performed By: #### B MP #### [place] [phone] Differential cell count method Nom (Bld) Auto Normal [facility] Comment on above: Order Comment: Speci men Type: BLOOD SPECIMENOrdering Facility: [facility] Address: [address] [place] [address] Performed By: #### B MP #### [place] [phone] Eosinophils (Bld) [#/Vol] 0.48 10*3/uL High <0.46 [facility] Comment on above: Order Comment: Speci men Type: BLOOD SPECIMENOrdering Facility: [facility] Address: [address] [place] [address] Performed By: #### B MP #### [place] [address] Eosinophils/100 WBC (Bld) 6.5 % Normal [facility] Comment on above: Order Comment: Speci men Type: BLOOD SPECIMENOrdering Facility: [facility] Address: [address] [place] [address] Performed By: #### B MP #### [address] Erythrocyte distribution width (RBC) [Ratio] 12.5 % Normal 11.5-15.0 [facility] Comment on above: Order Comment: Speci men Type: BLOOD SPECIMENOrdering Facility: [facility] Address: [address] [place] [address] Performed By: #### B MP #### [address] Hematocrit (Bld) [Volume fraction] 29.5 % Low 36.0-46.0 [facility] Comment on above: Order Comment: Speci men Type: BLOOD SPECIMENOrdering Facility: [facility] Address: [address] [place] [address] Performed By: #### B MP #### [place] [phone] Hemoglobin (Bld) [Mass/Vol] 10.2 g/dL Low 11.5-15.5 [facility] Comment on above: Order Comment: Speci men Type: BLOOD SPECIMENOrdering Facility: [facility] Address: [address] [place] [address] Performed By: #### B MP #### [place] [phone] IMMATURE GRAN % 0.5 % Normal [facility] Comment on above: Order Comment: Speci men Type: BLOOD SPECIMENOrdering Facility: [facility] Address: [address] [place] [address] Performed By: #### B MP #### [phone] IMMATURE GRAN ABS 0.04 k/uL Normal <0.10 [facility] Comment on above: Order Comment: Speci men Type: BLOOD SPECIMENOrdering Facility: [facility] Address: [address] [place] [address] Performed By: #### B MP #### [place] [phone] Lymphocytes (Bld) [#/Vol] 1.11 10*3/uL Normal 1.00-4.00 [facility] Comment on above: Order Comment: Speci men Type: BLOOD SPECIMENOrdering Facility: [facility] Address: [address] [place] [address] Performed By: #### B MP #### [place] [phone] Lymphocytes/100 WBC (Bld) 15.0 % Normal [facility] Comment on above: Order Comment: Speci men Type: BLOOD SPECIMENOrdering Facility: [facility] Address: [address] [place] [address] Performed By: #### B MP #### [phone] MCH (RBC) [Entitic mass] 30.1 pg Normal 26.0-34.0 [facility] Comment on above: Order Comment: Speci men Type: BLOOD SPECIMENOrdering Facility: [facility] Address: [address] [place] [address] Performed By: #### B MP #### [phone] MCHC (RBC) [Mass/Vol] 34.6 g/dL Normal 30.5-36.0 [facility] Comment on above: Order Comment: Speci men Type: BLOOD SPECIMENOrdering Facility: [facility] Address: [address] [place] [address] Performed By: #### B MP #### [place] [phone] MCV (RBC) [Entitic vol] 87.0 fL Normal 80.0-100.0 [facility] Comment on above: Order Comment: Speci men Type: BLOOD SPECIMENOrdering Facility: [facility] Address: [address] [place] [address] Performed By: #### B MP #### [place] [phone] Monocytes (Bld) [#/Vol] 0.46 10*3/uL Normal <0.87 [facility] Comment on above: Order Comment: Speci men Type: BLOOD SPECIMENOrdering Facility: [facility] Address: [address] [place] [address] Performed By: #### B MP #### [place] [phone] Monocytes/100 WBC (Bld) 6.2 % Normal [facility] Comment on above: Order Comment: Speci men Type: BLOOD SPECIMENOrdering Facility: [facility] Address: [address] [place] [address] Performed By: #### B MP #### [phone] Neutrophils (Bld) [#/Vol] 5.27 10*3/uL Normal 1.45-7.50 [facility] Comment on above: Order Comment: Speci men Type: BLOOD SPECIMENOrdering Facility: [facility] Address: [address] [place], [place] [phone] Performed By: #### B MP #### [place] [phone] Neutrophils/100 WBC (Bld) 71.4 % Normal [facility] Comment on above: Order Comment: Speci men Type: BLOOD SPECIMENOrdering Facility: [facility] Address: [address] [place] [address] Performed By: #### B MP #### [place] [phone] Nucleated RBC (Bld) [#/Vol] 10*3/uL Normal <0.01 [facility] Comment on above: Order Comment: Speci men Type: BLOOD SPECIMENOrdering Facility: [facility] Address: [address] [place] [address] Performed By: #### B MP #### [place] [phone] Nucleated RBC/100 WBC (Bld) [Ratio] 0.0 /100 WBC Normal [facility] Comment on above: Order Comment: Speci men Type: BLOOD SPECIMENOrdering Facility: [facility] Address: [address] [place] [address] Performed By: #### B MP #### [phone] Platelet mean volume (Bld) [Entitic vol] 8.6 fL Low 9.0-12.7 [facility] Comment on above: Order Comment: Speci men Type: BLOOD SPECIMENOrdering Facility: [facility] Address: [address] [place] [address] Performed By: #### B MP #### [phone] Platelets (Bld) [#/Vol] 342 10*3/uL Normal 150-400 [facility] Comment on above: Order Comment: Speci men Type: BLOOD SPECIMENOrdering Facility: [facility] Address: [address] [place] [address] Performed By: #### B MP #### [place] [phone] RBC (Bld) [#/Vol] 3.39 10*6/uL Low 3.90-5.20 [facility] Comment on above: Order Comment: Speci men Type: BLOOD SPECIMENOrdering Facility: [facility] Address: [address] [place] [address] Performed By: #### B MP #### [place] [phone] WBC (Bld) [#/Vol] 7.39 10*3/uL Normal 3.70-11.00 [facility] Comment on above: Order Comment: Speci men Type: BLOOD SPECIMENOrdering Facility: [facility] Address: [address] [place] [address] Performed By: #### B MP #### [place] [phone] CONSULT PROGon 04-03-2022 CONSULT PROG HNO ID: [id number] Author: Sarwat Huddleston PA-C Service: Pain Management Author Type: Physician Creative Writer Type: Consult Progress Note Filed: 04/03/2022 8:39 [...] comf (more content not included)... Normal [facility] CT ABD/PEL W IVCONon 022 [...] Lower thorax: Visualized lung bases are clear. Meter Changes Records Clerk (topogram) images: No additional findings. IMPRESSION: Postsurgical [...] collection is present in the lower pelvis Biscuit Packer: PSCB Transcribe Date/Time: Apr 03 2022 9:00P Dictated by : SHELBY ESPINOSA MD This examination was interpreted and the report reviewed and electronically signed by: SHELBY ESPINOSA MD on Apr 03 2022 9:12PM EST [id number] [facility] Magnesium SerPl-mCncon 04-03 Magnesium [Mass/Vol] 1.6 mg/dL Low 1.7-2.3 [facility] Comment on above: Order Comment: Speci men Type: BLOOD SPECIMENOrdering Facility: [facility] Address: [address] [place] [address] Performed By: #### B MP #### [facility] [address] [id number] NURSING PROGon 04-03-2022 NURSING PROG HNO ID: [id number] Author: Beto Ford, MAKI Service: ? Author Type: Registered Nurse Type: Nursing Progress Note Filed: 04/03/2022 9:39 PM Note Text: Nursing Progress Note Patient Name: Mary Leal Patient Location: [address]/EG6U-65 __ Daily Note: 2129: Pt declined to have all oral medications. They just go right through me. I cannot take them. . Made RN aware. This note was completed by: Beto Ford [facility] NURSING PROG HNO ID: [id number] Author: Dipti Crowley RN Service: Nursing Author Type: Registered Nurse Type: Nursing Progress Note Filed: 04/03/2022 2:51 PM Note Text: Nursing Progress Note Patient Name: Mary Leal Patient Location: [facility]/[id number]-55 __ Daily Note:Patient unable to tolerate powder form of potassium due to nausea. Patient unable to tolerate IV form, it feels like It's paralyzing my arm . Attempted to dilute boluses and lower rates with no success. SR paged with events [phone]). Awaiting further orders. This note was completed by: Dipti Crowley [facility] NURSING PROG HNO ID: [id number] Author: Dipti Crowley RN Service: Nursing Author Type: Registered Nurse Type: Nursing Progress Note Filed: 04/03/2022 11:33 AM Note Text: Nursing Progress Note Patient Name: Mary Leal Patient Location: -3B/-BN3G-89 __ Daily Note: Patient Up independently in [...] This note was completed by: Dipti Crowley [facility] NURSING PROG HNO ID: [id number] Author: Chava Remy RN Service: PICC Team [...] 03, 2022 TIME: 8:37 AM PAGER/CONTACT #: [facility] NURSING PROG HNO ID: [id number] Author: Kev Leone RN Service: ? Author Type: Registered Nurse Type: Nursing Progress Note Filed: 04/03/2022 3:50 AM Note Text: Nursing Progress Note Patient Name: Mary Leal Patient Location: [place] [address]/FI6A-19 __ Daily Note: 2100: Pt refusing all PO meds at this time, states she's concerned that she's not digesting them properly. Paan currently being controlled with bilateral blocks and PRN IV pain medication. This note was completed by: Kev Leone [facility] Phosphate SerPl-mCncon 04-03 Phosphate [Mass/Vol] 3.3 mg/dL Normal 2.7-4.8 [facility] Comment on above: Order Comment: Speci men Type: BLOOD SPECIMENOrdering Facility: [facility] Address: [address] [place] [address] Performed By: #### B MP #### [place] [address] ALLIED HEALTH 04-02-2022 ALLIED HEALTH HNO ID: [id number] Author: RT Ban(R) Service: Radiology Author Type: [...] Ban(R) April 02, 2022 9:12 AM Normal [facility] CONSULT PROGon 04-02-2022 CONSULT PROG HNO ID: [id number] Author: Sarwat Huddleston PA-C Service: Pain Management Author Type: Physician Creative Writer Type: Consult Progress Note Filed: 04/02/2022 9:00 [...] 5 (more content not included)... Normal [facility] NURSING PROGon 04-02-2022 NURSING PROG HNO ID: [id number] Author: Dipti Crowley RN Service: Nursing Author Type: Registered Nurse Type: Nursing Progress Note Filed: 04/02/2022 1:23 PM Note Text: Nursing Progress Note Patient Name: Mary Leal Patient Location: / __ Daily Note: Patient AANDOx3. VSS. RA POx. D51/2NS at 75 ml/hr. B/L Tap Block dressings CDI. Old ostomy with ABD and tape, CDI. Transverse and lap sites CUPOLA PATCHER with glue. NPO status. Medicated with IV [...] This note was completed by: Dipti Crowley [facility] XR ABDOMEN 1V SUPINEon 04-02 XR [...] may be of help for further evaluation. Biscuit Packer: CAPRI Transcribe Date/Time: Apr 02 2022 9:16A Dictated by : JOAQUIN BRYANT MD This examination was interpreted and the report reviewed and electronically signed by: JOAQUIN BRYANT MD on Apr 02 2022 9:19AM EST [id number] [facility] Basic metabolic 2000 panelon 04-01-2022 Anion gap [Moles/Vol] 9 mmol/L Normal 9-18 [facility] Comment on above: Order Comment: Speci men Type: BLOOD SPECIMENOrdering Facility: [facility] Address: [address] [place] [address] Performed By: #### B MP #### [place] [phone] Calcium [Mass/Vol] 7.9 mg/dL Low 8.5-10.2 [facility] Comment on above: Order Comment: Speci men Type: BLOOD SPECIMENOrdering Facility: [facility] Address: [address] [place] [address] Performed By: #### B MP #### [place] [phone] Chloride [Moles/Vol] 106 mmol/L High 97-105 [facility] Comment on above: Order Comment: Speci men Type: BLOOD SPECIMENOrdering Facility: [facility] Address: [address] [place] [address] Performed By: #### B MP #### [phone] CO2 [Moles/Vol] 26 mmol/L Normal 22-30 [facility] Comment on above: Order Comment: Speci men Type: BLOOD SPECIMENOrdering Facility: [facility] Address: [address] [place] [address] Performed By: #### B MP #### [phone] Creatinine [Mass/Vol] 0.68 mg/dL Normal 0.58-0.96 [facility] Comment on above: Order Comment: Speci men Type: BLOOD SPECIMENOrdering Facility: [facility] Address: [address] [place] [address] Performed By: #### B MP #### [place] [phone] ESTIMATED GLOMERULAR FILTRATION RATE 107 mL/min/1.73m??? Normal >=60 [facility] Comment on above: Order Comment: Speci men Type: BLOOD SPECIMENOrdering Facility: [facility] Address: [address] [place] [address] Result Comment: Mary mated Glomerular Filtration Rate [...] GFR. Performed By: #### B MP #### [place] [address] Glucose [Mass/Vol] 99 mg/dL Normal 74-99 [facility] Comment on above: Order Comment: Speci men Type: BLOOD SPECIMENOrdering Facility: [facility] Address: [address] Result Comment: The [place] Diabetes Association (ADA) provides guidance for cutoff [...] Standards of Medical Care in Diabetes 2016, [place] [employer]. Diabetes Care. 2016.39(Suppl 1). Performed By: #### B MP #### [place] [address] Potassium [Moles/Vol] 3.7 mmol/L Normal 3.7-5.1 [facility] Comment on above: Order Comment: Speci men Type: BLOOD SPECIMENOrdering Facility: [facility] Address: [address] [facility] [facility] [facility] [address] [place] [phone] Performed By: #### B MP #### [place] [address] Sodium [Moles/Vol] 141 mmol/L Normal 136-144 [facility] Comment on above: Order Comment: Speci men Type: BLOOD SPECIMENOrdering Facility: [facility] Address: [address] [place] [address] Performed By: #### B MP #### [place] [phone] Urea nitrogen [Mass/Vol] 4 mg/dL Low 7-21 [facility] Comment on above: Order Comment: Speci men Type: BLOOD SPECIMENOrdering Facility: [facility] Address: [address] [place] [address] Performed By: #### B MP #### [place] [address] CBC panel Auto (Bld)on 04-01 Erythrocyte distribution width (RBC) [Ratio] 12.4 % Normal 11.5-15.0 [facility] Comment on above: Order Comment: Speci men Type: BLOOD SPECIMEN [facility] Address: [address] [place] [address] Performed By: #### 5 8410-2 #### [facility] CLIA [id number] [address] [place] [address] [place] Hematocrit (Bld) [Volume fraction] 29.3 % Low 36.0-46.0 [facility] Comment on above: Order Comment: Speci men Type: BLOOD SPECIMEN [facility] Address: [address] [place] [address] Performed By: #### 5 8410-2 #### [facility] CLIA [id number] [address] [place] [address] [place] Hemoglobin (Bld) [Mass/Vol] 9.6 g/dL Low 11.5-15.5 [facility] Comment on above: Order Comment: Speci men Type: BLOOD SPECIMEN [facility] Address: [address] [place] [address] Performed By: #### 5 8410-2 #### [facility] CLIA [id number] [address] [place] [address] [place] MCH (RBC) [Entitic mass] 29.4 pg Normal 26.0-34.0 [facility] Comment on above: Order Comment: Speci men Type: BLOOD SPECIMEN [facility] Address: [address] [place] [address] Performed By: #### 5 8410-2 #### [facility] CLIA [id number] [address] [place] [address] [place] MCHC (RBC) [Mass/Vol] 32.8 g/dL Normal 30.5-36.0 [facility] Comment on above: Order Comment: Speci men Type: BLOOD SPECIMEN [facility] Address: [address] [place] [address] Performed By: #### 5 8410-2 #### [facility] CLIA [id number] [address] [place] [address] [place] MCV (RBC) [Entitic vol] 89.9 fL Normal 80.0-100.0 [facility] Comment on above: Order Comment: Speci men Type: BLOOD SPECIMEN [facility] Address: [address] [place] [address] Performed By: #### 5 8410-2 #### [facility] CLIA [id number] [address] [place] [address] [place] Nucleated RBC (Bld) [#/Vol] 10*3/uL Normal <0.01 [facility] Comment on above: Order Comment: Speci men Type: BLOOD SPECIMEN [facility] Address: [address] [place] [address] Performed By: #### 5 8410-2 #### [facility] CLIA [id number] [address] [place] [address] [place] Platelet mean volume (Bld) [Entitic vol] 8.9 fL Low 9.0-12.7 [facility] Comment on above: Order Comment: Speci men Type: BLOOD SPECIMEN [facility] Address: [address] [place] [address] Performed By: #### 5 8410-2 #### [facility] CLIA [id number] [address] [place] [address] [place] Platelets (Bld) [#/Vol] 282 10*3/uL Normal 150-400 [facility] Comment on above: Order Comment: Speci men Type: BLOOD SPECIMEN [facility] Address: [address] [place] [address] Performed By: #### 5 8410-2 #### [facility] CLIA [id number] [address] [place] [address] [place] RBC (Bld) [#/Vol] 3.26 10*6/uL Low 3.90-5.20 [facility] Comment on above: Order Comment: Speci men Type: BLOOD SPECIMEN [facility] Address: [address] [place] [address] Performed By: #### 5 8410-2 #### [facility] CLIA [id number] [address] [place] [address] [place] WBC (Bld) [#/Vol] 7.39 10*3/uL Normal 3.70-11.00 [facility] Comment on above: Order Comment: Speci men Type: BLOOD SPECIMEN [facility] Address: [address] [place] [address] Performed By: #### 5 8410-2 #### [facility] CLIA [id number] [address] [place] [address] OF [facility] CONSULT PROGon 04-01-2022 CONSULT PROG HNO ID: [id number] Author: Joslyn Jain APRN.[employer] SPECIAL AGENT Service: Pain Management Author Type: Nurse Practitioner [...] Sod (more content not included)... Normal [facility] Magnesium SerPl-mCncon 04-01 Magnesium [Mass/Vol] 1.7 mg/dL Normal 1.7-2.3 [facility] Comment on above: Order Comment: Speci men Type: BLOOD SPECIMENOrdering Facility: [facility] Address: [address] [place] [address] Performed By: #### B MP #### [place] [address] NURSING PROGon 04-01-2022 NURSING PROG HNO ID: [id number] Author: Tez Gu RN Service: ? Author Type: Registered Nurse Type: Nursing Progress Note Filed: 04/01/2022 9:56 PM Note Text: Nursing Progress Note Patient Name: Mary Leal Patient Location: [facility]/MO1L-73 __ Daily Note:04/01/222038 Pt is alert and oriented x3. Surgical sites intact. Tap blocks x2 intact. Made SROC aware of Pt experiencing sharp/stabbing pain in abdomen, rating 9/10. SROC recommended use of PRN Dilaudid This note was completed by: Tez Gu [facility] NURSING PROG HNO ID: [id number] Author: Tez Gu, RN Service: ? Author Type: Registered Nurse Type: Nursing Progress Note Filed: 04/01/2022 1:52 AM Note Text: Nursing Progress Note Patient Name: Mary Leal Patient Location: / __ Daily Note:03/31/222030 Pt is alert and oriented x3. Surgical sites intact. Nerve blocks x2 intact. This note was completed by: [facility] Phosphate SerPl-mCncon 04-01 Phosphate [Mass/Vol] 2.8 mg/dL Normal 2.7-4.8 [facility] Comment on above: Order Comment: Leanne [facility] Type: BLOOD SPECIMENOrdering Facility: [facility] Address: [address] [place] [address] Performed By: #### B MP #### [place] [address] Basic metabolic 2000 panelon 03-31-2022 Anion gap [Moles/Vol] 10 mmol/L Normal 9-18 [facility] Comment on above: Order Comment: Kaylini men Type: BLOOD SPECIMEN Ordering Facility: [facility] Address: [address] [place] [address] Performed By: #### 5 8410-2 #### [facility] CLIA [id number] [address] [place] [address] [place] Calcium [Mass/Vol] 8.4 mg/dL Low 8.5-10.2 [facility] Comment on above: Order Comment: Kaylini men Type: BLOOD SPECIMEN Ordering Facility[facility] Address: [address] [place] [address] Performed By: #### 5 8410-2 #### [facility] CLIA [id number] [address] [place] [address] [place] Chloride [Moles/Vol] 107 mmol/L High 97-105 [facility] Comment on above: Order Comment: Speci men Type: BLOOD SPECIMEN Ordering Facility: [facility] Address: [address] [place] [address] Performed By: #### 5 8410-2 #### [facility] CLIA [id number] [address] [place] [address] [place] CO2 [Moles/Vol] 23 mmol/L Normal 22-30 [facility] Comment on above: Order Comment: Speci men Type: BLOOD SPECIMEN Ordering Facility[facility] Address: [address] [place] [address] Performed By: #### 5 8410-2 #### [facility] CLIA [id number] [address] [place] [address] [place] Creatinine [Mass/Vol] 0.67 mg/dL Normal 0.58-0.96 [facility] Comment on above: Order Comment: Speci men Type: BLOOD SPECIMEN Ordering Facility: [facility] Address: [address] [place] [address] Performed By: #### 5 8410-2 #### [facility] CLIA [id number] [address] [place] [address] ESTIMATED GLOMERULAR FILTRATION RATE 107 mL/min/1.73m??? Normal >=60 [facility] Comment on above: Order Comment: Speci men Type: BLOOD SPECIMEN Ordering Facility[facility] Address: [address] [place] [address] Result Comment: Mary mated Glomerular Filtration Rate [...] GFR. Performed By: #### 5 8410-2 #### [facility] CLIA [id number] [address] [place] [address] [place] Glucose [Mass/Vol] 84 mg/dL Normal 74-99 [facility] Comment on above: Order Comment: Leanne terry Type: BLOOD SPECIMEN [facility] Address: [address] [place] [address] Result Comment: The [place] Diabetes [employer] (ADA) provides guidance for cutoff [...] Standards of Medical Care in Diabetes 2016, [place] [employer]. Diabetes Care. 2016.39(Suppl 1). Performed By: #### 5 8410-2 #### [facility] CLIA [id number] [address] [place] [address] [place] Potassium [Moles/Vol] 3.8 mmol/L Normal 3.7-5.1 [facility] Comment on above: Order Comment: Leanne terry Type: BLOOD SPECIMEN [facility]ing Facility[facility] Address: [address] [place] [address] Performed By: #### 5 8410-2 #### [facility] CLIA [id number] [address] [place] [address] [place] Sodium [Moles/Vol] 140 mmol/L Normal 136-144 [facility] Comment on above: Order Comment: Leanne terry Type: BLOOD SPECIMEN [facility] Facility[facility] Address: [address] [place] [address] Performed By: #### 5 8410-2 #### [facility] CLIA [id number] [address] [place] [address] [place] Urea nitrogen [Mass/Vol] 11 mg/dL Normal 7-21 [facility] Comment on above: Order Comment: Speci men Type: BLOOD SPECIMEN [facility]ing [facility] Address: [address] [place] [address] Performed By: #### 5 8410-2 #### [facility] CLIA [id number] [address] [place] [address] [place] CBC W Auto Differential pane l (Bld)on 03-31-2022 Basophils (Bld) [#/Vol] 0.03 10*3/uL Normal <0.11 [facility] Comment on above: Order Comment: Speci men Type: BLOOD SPECIMEN Ordering Facility[facility] Address: [address] [place] [address] Performed By: #### 5 7021-8 #### [facility] CLIA [id number] [address] [place] [address] [place] Basophils/100 WBC (Bld) 0.4 % Normal [facility] Comment on above: Order Comment: Speci men Type: BLOOD SPECIMEN Ordering Facility[facility] Address: [address] [place] [address] Performed By: #### 5 7021-8 #### [facility] CLIA [id number] [address] [place] [address] [place] Differential cell count method Nom (Bld) Auto Normal [facility] Comment on above: Order Comment: Speci men Type: BLOOD SPECIMEN Ordering Facility[facility] Address: [address] [place] [address] Performed By: #### 5 7021-8 #### [facility] CLIA [id number] [address] [place] [address] [place] Eosinophils (Bld) [#/Vol] 0.38 10*3/uL Normal <0.46 [facility] Comment on above: Order Comment: Speci men Type: BLOOD SPECIMEN Ordering [facility] Address: [address] [place] [address] Performed By: #### 5 7021-8 #### [facility] CLIA [id number] [address] [place] [address] [place] Eosinophils/100 WBC (Bld) 4.4 % Normal [facility] Comment on above: Order Comment: Speci men Type: BLOOD SPECIMEN Ordering [facility] Address: [address] [place] [address] Performed By: #### 5 7021-8 #### [facility] CLIA [id number] [address] [place] [address] [place] Erythrocyte distribution width (RBC) [Ratio] 12.6 % Normal 11.5-15.0 [facility] Comment on above: Order Comment: Speci men Type: BLOOD SPECIMEN Ordering Facility: [facility] Address: [address] [place] [address] Performed By: #### 5 7021-8 #### [facility] CLIA [id number] [address] [place] [address] [place] Hematocrit (Bld) [Volume fraction] 30.0 % Low 36.0-46.0 [facility] Comment on above: Order Comment: Speci men Type: BLOOD SPECIMEN Ordering Facility[facility] Address: [address] [place] [address] Performed By: #### 5 7021-8 #### [facility] CLIA [id number] [address] [place] [address] [place] Hemoglobin (Bld) [Mass/Vol] 9.9 g/dL Low 11.5-15.5 [facility] Comment on above: Order Comment: Speci men Type: BLOOD SPECIMEN [facility] Address: [address] [place] [address] Performed By: #### 5 7021-8 #### [facility] CLIA [id number] [address] [place] [address] [place] IMMATURE GRAN % 0.4 % Normal [facility] Comment on above: Order Comment: Speci men Type: BLOOD SPECIMEN Ordering [facility] Address: [address] [place] [address] Performed By: #### 5 7021-8 #### [facility] CLIA [id number] [address] [place] IMMATURE GRAN ABS 0.03 k/uL Normal <0.10 [facility] Comment on above: Order Comment: Speci men Type: BLOOD SPECIMEN Ordering Facility: [facility] Address: [address] [place] [address] Performed By: #### 5 7021-8 #### [facility] CLIA [id number] [address] [place] [address] [place] Lymphocytes (Bld) [#/Vol] 1.24 10*3/uL Normal 1.00-4.00 [facility] Comment on above: Order Comment: Speci men Type: BLOOD SPECIMEN Ordering [facility]: [facility] Address: [address] [place] [address] Performed By: #### 5 7021-8 #### [facility] CLIA [id number] [address] [place] [address] Lymphocytes/100 WBC (Bld) 14.5 % Normal [facility] Comment on above: Order Comment: Speci men Type: BLOOD SPECIMEN Ordering [facility]: [facility] Address: [address] [place] [address] Performed By: #### 5 7021-8 #### [facility] CLIA [id number] [address] [place] [address] MCH (RBC) [Entitic mass] 29.6 pg Normal 26.0-34.0 [facility] Comment on above: Order Comment: Speci men Type: BLOOD SPECIMEN Ordering Facility: [facility] Address: [address] [place] [address] Performed By: #### 5 7021-8 #### [facility] CLIA [id number] [address] [place] [address] STATES [facility] MCHC (RBC) [Mass/Vol] 33.0 g/dL Normal 30.5-36.0 [facility] Comment on above: Order Comment: Speci men Type: BLOOD SPECIMEN Ordering Facility: [facility] Address: [address] [place] [address] Performed By: #### 5 7021-8 #### [facility] CLIA [id number] [address] [place] [address] [place] MCV (RBC) [Entitic vol] 89.8 fL Normal 80.0-100.0 [facility] Comment on above: Order Comment: Speci men Type: BLOOD SPECIMEN Ordering Facility: [facility] Address: [address] [place] [address] Performed By: #### 5 7021-8 #### [facility] CLIA [id number] [address] [place] [address] [place] Monocytes (Bld) [#/Vol] 0.48 10*3/uL Normal <0.87 [facility] Comment on above: Order Comment: Speci men Type: BLOOD SPECIMEN Ordering Facility: [facility] Address: [address] [place] [address] Performed By: #### 5 7021-8 #### [facility] CLIA [id number] [address] [place] [address] [place] Monocytes/100 WBC (Bld) 5.6 % Normal [facility] Comment on above: Order Comment: Speci men Type: BLOOD SPECIMEN Ordering [facility]: [facility] Address: [address] [place] [address] Performed By: #### 5 7021-8 #### [facility] CLIA [id number] [address] [place] [address] [place] Neutrophils (Bld) [#/Vol] 6.41 10*3/uL Normal 1.45-7.50 [facility] Comment on above: Order Comment: Speci men Type: BLOOD SPECIMEN [facility] Address: [address] [place] [address] Performed By: #### 5 7021-8 #### [facility] CLIA [id number] [address] [place] [address] [place] Neutrophils/100 WBC (Bld) 74.7 % Normal [facility] Comment on above: Order Comment: Speci men Type: BLOOD SPECIMEN Ordering Facility: [facility] Address: [address] [place] [address] Performed By: #### 5 7021-8 #### [facility] CLIA [id number] [address] [place] [address] [place] Nucleated RBC (Bld) [#/Vol] 10*3/uL Normal <0.01 [facility] Comment on above: Order Comment: Speci men Type: BLOOD SPECIMEN Order[facility] Address: [address] [place] [address] Performed By: #### 5 7021-8 #### [facility] CLIA [id number] [address] [place] [address] [place] Nucleated RBC/100 WBC (Bld) [Ratio] 0.0 /100 WBC Normal [facility] Comment on above: Order Comment: Speci men Type: BLOOD SPECIMEN Order[facility] Address: [address] [place] [address] Performed By: #### 5 7021-8 #### [facility] CLIA [id number] [address] [place] [address] [place] Platelet mean volume (Bld) [Entitic vol] 9.0 fL Normal 9.0-12.7 [facility] Comment on above: Order Comment: Speci men Type: BLOOD SPECIMEN Order[facility] Address: [address] [place] [address] Performed By: #### 5 7021-8 #### [facility] CLIA [id number] [address] [place] [address] [place] Platelets (Bld) [#/Vol] 246 10*3/uL Normal 150-400 [facility] Comment on above: Order Comment: Speci men Type: BLOOD SPECIMEN Ordering [facility]: [facility] Address: [address] [place] [address] Performed By: #### 5 7021-8 #### [facility] CLIA [id number] [address] [place] [address] [place] RBC (Bld) [#/Vol] 3.34 10*6/uL Low 3.90-5.20 [facility] Comment on above: Order Comment: Speci men Type: BLOOD SPECIMEN Order[facility] Address: [address] Performed By: #### 5 7021-8 #### [facility] CLIA [id number] [address] [place] [address] [place] [facility] WBC (Bld) [#/Vol] 8.57 10*3/uL Normal 3.70-11.00 [facility] Comment on above: Order Comment: Speci men Type: BLOOD SPECIMEN Ordering Facility: [facility] Address: [address] Performed By: #### 5 7021-8 #### [facility] CLIA [id number] CONSULT PROGon 03-31-2022 CONSULT PROG HNO ID: [id number] Author: Joslyn Jain APRN.[employer] Service: Pain Management Author Type: Nurse Practitioner [...] PLAN/Recs: 1. Continue TAPS X 2 to each, will likely remove it on Monday [...] U (more content not included)... Normal [facility] Magnesium SerPl-mCncon 03-31 Magnesium [Mass/Vol] 1.6 mg/dL Low 1.7-2.3 [facility] Comment on above: Order Comment: Speci men Type: BLOOD SPECIMEN [facility] Address: [address] [place] [address] Performed By: #### 5 8410-2 #### [facility] CLIA [id number] [facility] NURSING PROGon 03-31-2022 NURSING PROG HNO ID: [id number] Author: Daisy Amaya RN Service: Nursing Author Type: Registered Nurse Type: Nursing Progress Note Filed: 03/31/2022 4:56 PM Note Text: Nursing Progress Note Patient Name: Mary Leal Patient Location: [place] [address]/[id number] __ Daily Note: 0931- Pt A+Ox3. Up with standby assist. Ambulated pod multiple times. Laps intact. Old ostomy site WNL. Pt having liquid brown BMs. Voiding adq. No nausea, cp, or sob. Taps infusing per JAN. Pain controlled with PRN oxy. No further needs at this time. This note was completed by: Daisy Amaya [facility] NURSING PROG HNO ID: [id number] Author: Mariluz Carnes RN Service: Nursing Author Type: Registered Nurse Type: Nursing Progress Note Filed: 03/30/2022 11:47 PM Note Text: Nursing Progress Note Patient Name: Mary Leal Patient Location: [place] [address]/[id number] __ Daily Note: Pt's BP 90/52. Patient asymptomatic. Surgery made aware. Order in for [facility] LR 500CC's. This note was completed by: Mariluz Carnes Normal [facility] Phosphate SerPl-mCncon 03-31 Phosphate [Mass/Vol] 2.7 mg/dL Normal 2.7-4.8 [facility] Comment on above: Order Comment: Speci men Type: BLOOD SPECIMEN [facility] Address: [address] [place] [address] Performed By: #### 5 8410-2 #### [facility] CLIA [id number] [address] [place] [address] [place] Basic metabolic 2000 panelon 03-30-2022 Anion gap [Moles/Vol] 10 mmol/L Normal 9-18 [facility] Comment on above: Order Comment: Speci men Type: BLOOD SPECIMEN Order[facility] Facility: [facility] Address: [address] [place] [address] Performed By: #### 1 9123-9, 2777-1, 01859-9 #### [facility] CLIA [id number] [address] [place] [address] [place] Calcium [Mass/Vol] 8.5 mg/dL Normal 8.5-10.2 [facility] Comment on above: Order Comment: Speci men Type: BLOOD SPECIMEN Ordering Facility: [facility] Address: [address] [place] [address] Performed By: #### 1 9123-9, 2777-1, 14375-1 #### [facility] CLIA [id number] [address] [place] [address] [place] Chloride [Moles/Vol] 103 mmol/L Normal 97-105 [facility] Comment on above: Order Comment: Speci men Type: BLOOD SPECIMEN Ordering Facility[facility] Address: [address] [place] [address] Performed By: #### 1 9123-9, 2777-, 87735-0 #### [facility] CLIA [id number] [address] [place] [address] [place] CO2 [Moles/Vol] 24 mmol/L Normal 22-30 [facility] Comment on above: Order Comment: Speci men Type: BLOOD SPECIMEN Ordering [facility] Address: [address] [place] [address] Performed By: #### 1 9123-9, 2776-11, 60202-9 #### [facility] CLIA [id number] [place] [address] [place] Creatinine [Mass/Vol] 0.69 mg/dL Normal 0.58-0.96 [facility] Comment on above: Order Comment: Speci men Type: BLOOD SPECIMEN Order[facility] Address: [address] [place] [address] Performed By: #### 1 9123-9, 27705-06, 86357-8 #### [facility] CLIA [id number] [address] [place] [address] [place] ESTIMATED GLOMERULAR FILTRATION RATE 107 mL/min/1.73m??? Normal >=60 [facility] Comment on above: Order Comment: Speci men Type: BLOOD SPECIMEN Ordering [facility] Address: [address] [place] [address] Result Comment: Mary mated Glomerular Filtration Rate [...] GFR. Performed By: #### 1 9123-9, 27705-06, 60400-0 #### [facility] CLIA [id number] [place] [address] [place] Glucose [Mass/Vol] 117 mg/dL High 74-99 [facility] Comment on above: Order Comment: Speci men Type: BLOOD SPECIMEN Ordering [facility]: [facility] Address: [address] [place] [phone] Result Comment: The [place] Diabetes [employer] (ADA) provides guidance for cutoff [...] Standards of Medical Care in Diabetes 2016, [place] [employer]. Diabetes Care. 2016.39(Suppl 1). Performed By: #### 1 9123-9, 2777-, 45224-8 #### [facility] CLIA [id number] [address] [place] [address] [place] Potassium [Moles/Vol] 3.9 mmol/L Normal 3.7-5.1 [facility] Comment on above: Order Comment: Leanne terry Type: BLOOD SPECIMEN Ordering Facility: [facility] Address: [address] [place] [phone] Performed By: #### 1 9123-9, 2777-, 14246-7 #### [facility] CLIA [id number] [address] [place] [address] [place] Sodium [Moles/Vol] 137 mmol/L Normal 136-144 [facility] Comment on above: Order Comment: Leanne terry Type: BLOOD SPECIMEN Ordering Facility: [facility] Address: [address] [place] [phone] Performed By: #### 1 9123-9, 2777, 50617-5 #### [facility] CLIA [id number] [place] [address] [place] Urea nitrogen [Mass/Vol] 13 mg/dL Normal 7-21 [facility] Comment on above: Order Comment: Kaylini men Type: BLOOD SPECIMEN Ordering Facility: [facility] Address: [address] [place] [address] Performed By: #### 1 9123-9, 2777-1, 22349-9 #### [facility] CLIA [id number] [address] [place] [address] [place] CBC panel Auto (Bld)on 03-30 Erythrocyte distribution width (RBC) [Ratio] 12.8 % Normal 11.5-15.0 [facility] Comment on above: Order Comment: Speci men Type: BLOOD SPECIMEN Ordering Facility: [facility] Address: [address] [place] [address] Performed By: #### 5 8410-2 #### [facility] CLIA [id number] [address] [place] [address] [place] Hematocrit (Bld) [Volume fraction] 35.0 % Low 36.0-46.0 [facility] Comment on above: Order Comment: Speci men Type: BLOOD SPECIMEN Ordering Facility: [facility] Address: [address] [place] [address] Performed By: #### 5 8410-2 #### [facility] CLIA [id number] [address] [place] [address] [place] Hemoglobin (Bld) [Mass/Vol] 11.8 g/dL Normal 11.5-15.5 [facility] Comment on above: Order Comment: Speci men Type: BLOOD SPECIMEN Ordering Facility: [facility] Address: [address] [place] [address] Performed By: #### 5 8410-2 #### [facility] CLIA [id number] [address] [place] [address] [place] MCH (RBC) [Entitic mass] 30.6 pg Normal 26.0-34.0 [facility] Comment on above: Order Comment: Speci men Type: BLOOD SPECIMEN Ordering Facility: [facility] Address: [address] [place] [address] Performed By: #### 5 8410-2 #### [facility] CLIA [id number] [address] [place] [address] [place] MCHC (RBC) [Mass/Vol] 33.7 g/dL Normal 30.5-36.0 [facility] Comment on above: Order Comment: Speci men Type: BLOOD SPECIMEN Ordering Facility: [facility] Address: [address] [place] [address] Performed By: #### 5 8410-2 #### [facility] CLIA [id number] [address] [place] [address] [place] MCV (RBC) [Entitic vol] 90.7 fL Normal 80.0-100.0 [facility] Comment on above: Order Comment: Speci men Type: BLOOD SPECIMEN Ordering Facility: [facility] Address: [address] [place] [address] Performed By: #### 5 8410-2 #### [facility] CLIA [id number] [address] [place] [address] [place] Nucleated RBC (Bld) [#/Vol] 10*3/uL Normal <0.01 [facility] Comment on above: Order Comment: Speci men Type: BLOOD SPECIMEN Ordering Facility: [facility] Address: [address] [place] [address] Performed By: #### 5 8410-2 #### [facility] CLIA [id number] [address] [place] [address] [place] Platelet mean volume (Bld) [Entitic vol] 8.9 fL Low 9.0-12.7 [facility] Comment on above: Order Comment: Speci men Type: BLOOD SPECIMEN Ordering Facility: [facility] Address: [address] [place] [address] Performed By: #### 5 8410-2 #### [facility] CLIA [id number] [address] [place] [address] [place] Platelets (Bld) [#/Vol] 293 10*3/uL Normal 150-400 [facility] Comment on above: Order Comment: Speci men Type: BLOOD SPECIMEN Ordering Facility[facility] Address: [address] [place] [address] Performed By: #### 5 8410-2 #### [facility] CLIA [id number] [address] [place] [address] [place] RBC (Bld) [#/Vol] 3.86 10*6/uL Low 3.90-5.20 [facility] Comment on above: Order Comment: Speci men Type: BLOOD SPECIMEN Ordering Facility: [facility] Address: [address] [place] [address] Performed By: #### 5 8410-2 #### [facility] CLIA [id number] [place] [address] [place] WBC (Bld) [#/Vol] 11.25 10*3/uL High 3.70-11.00 [facility] Comment on above: Order Comment: Speci men Type: BLOOD SPECIMEN Ordering Facility: [facility] Address: [address] [place] [address] Performed By: #### 5 8410-2 #### [facility] CLIA [id number] [facility] CONSULT PROGon 03-30-2022 CONSULT PROG HNO ID: [id number] Author: Joslyn Jain APRN.[employer] Service: Pain Management Author Type: Nurse Practitioner [...] N/V PLAN/Recs: 1. ContinueTAPS X 2 to 0/8//2 each, likely will remove blocks tomorrow 2. [...] >= (more content not included)... Normal [facility]-ncon 03-30 Magnesium [Mass/Vol] 1.6 mg/dL Low 1.7-2.3 [facility] Comment on above: Order Comment: Speci men Type: BLOOD SPECIMEN Ordering Facility: [facility] Address: [address] [place] [address] Performed By: #### 1 9123-9, 2777-1, 01539-2 #### [facility] CLIA [id number] [place] [address] [place] Phosphate [facility]-ncon 03-30 Phosphate [Mass/Vol] 2.9 mg/dL Normal 2.7-4.8 [facility] Comment on above: Order Comment: Speci men Type: BLOOD SPECIMEN Ordering Facility: [facility] Address: [address] [place] [address] Performed By: #### 1 9123-9, 2777-1, 28373-7 #### [facility] CLIA [id number] [address] [place] [address] [place] ANES POSTPROC EVALon 022 ANES POSTPROC EVAL HNO ID: [id number] Author: Nathanael Craig DO Service: Anesthesiology Author [...] March 29, 2022 TIME: 8:29 AM CSN: [id number] Normal [facility] Basic metabolic 2000 panelon 03-29-2022 Anion gap [Moles/Vol] 9 mmol/L Normal 9-18 [facility] Comment on above: Order Comment: Speci men Type: BLOOD SPECIMEN Ordering Facility: [facility] Address: [address] [place] [address] Performed By: #### 5 8410-2 #### [facility] CLIA [id number] [address] [place] [address] [place] Calcium [Mass/Vol] 7.9 mg/dL Low 8.5-10.2 [facility] Comment on above: Order Comment: Speci men Type: BLOOD SPECIMEN Ordering Facility: [facility] Address: [address] [address] Performed By: #### 5 8410-2 #### [facility] CLIA [id number] [address] [place] [address] [place] Chloride [Moles/Vol] 105 mmol/L Normal 97-105 [facility] Comment on above: Order Comment: Speci men Type: BLOOD SPECIMEN Ordering Facility: [facility] Address: [address] [place] [address] Performed By: #### 5 8410-2 #### [facility] CLIA [id number] [address] [place] [address] [place] CO2 [Moles/Vol] 24 mmol/L Normal 22-30 [facility] Comment on above: Order Comment: Speci men Type: BLOOD SPECIMEN Ordering Facility: [facility] Address: [address] [place] [address] Performed By: #### 5 8410-2 #### [facility] CLIA [id number] [address] [place] [address] [place] Creatinine [Mass/Vol] 0.70 mg/dL Normal 0.58-0.96 [facility] Comment on above: Order Comment: Speci men Type: BLOOD SPECIMEN Ordering Facility: [facility] Address: [address] [place] [address] Performed By: #### 5 8410-2 #### [facility] CLIA [id number] [address] [place] [address] [place] ESTIMATED GLOMERULAR FILTRATION RATE 106 mL/min/1.73m??? Normal >=60 [facility] Comment on above: Order Comment: Speci men Type: BLOOD SPECIMEN Ordering Facility: [facility] Address: [address] [place] [address] Result Comment: Mary mated Glomerular Filtration Rate [...] GFR. Performed By: #### 5 8410-2 #### [facility] CLIA [id number] [place] [address] [place] Glucose [Mass/Vol] 92 mg/dL Normal 74-99 [facility] Comment on above: Order Comment: Leanne terry Type: BLOOD SPECIMEN Ordering Facility: [facility] Address: [address] [place] [address] Result Comment: The [place] Diabetes Association (ADA) provides guidance for cutoff [...] Standards of Medical Care in Diabetes 2016, [place] [employer] Association. Diabetes Care. 2016.39(Suppl 1). Performed By: #### 5 8410-2 #### [facility] CLIA [id number] [address] [place] [address] [place] Potassium [Moles/Vol] 4.1 mmol/L Normal 3.7-5.1 [facility] Comment on above: Order Comment: Leanne terry Type: BLOOD SPECIMEN Ordering Facility: [facility] Address: [address] [place] [address] Performed By: #### 5 8410-2 #### [facility] CLIA [id number] [address] [place] [address] [place] Sodium [Moles/Vol] 138 mmol/L Normal 136-144 [facility] Comment on above: Order Comment: Leanne men Type: BLOOD SPECIMEN Ordering Facility: [facility] Address: [address] [place] [address] Performed By: #### 5 8410-2 #### [facility] CLIA [id number] [address] [place] [address] [place] Urea nitrogen [Mass/Vol] 12 mg/dL Normal 7-21 [facility] Comment on above: Order Comment: Leanne terry Type: BLOOD SPECIMEN Ordering Facility: [facility] Address: [address] [place] [address] Performed By: #### 5 8410-2 #### [facility] CLIA [id number] [address] [place] [address] [place] CBC W Auto Differential pane l (Bld)on 03-29-2022 Basophils (Bld) [#/Vol] 0.04 10*3/uL Normal <0.11 [facility] Comment on above: Order Comment: Speci men Type: BLOOD SPECIMEN Ordering Facility: [facility] Address: [address] [place] [address] Performed By: #### 5 7021-8 #### [facility] CLIA [id number] [address] [place] [address] [place] Basophils/100 WBC (Bld) 0.6 % Normal [facility] Comment on above: Order Comment: Speci men Type: BLOOD SPECIMEN Ordering Facility: [facility] Address: [address] [place] [address] Performed By: #### 5 7021-8 #### [facility] CLIA [id number] [address] [place] [address] [place] Differential cell count method Nom (Bld) Auto Normal [facility] Comment on above: Order Comment: Speci men Type: BLOOD SPECIMEN Ordering Facility: [facility] Address: [address] [place] [address] Performed By: #### 5 7021-8 #### [facility] CLIA [id number] [address] [place] [address] [place] Eosinophils (Bld) [#/Vol] 0.16 10*3/uL Normal <0.46 [facility] Comment on above: Order Comment: Speci men Type: BLOOD SPECIMEN Ordering Facility: [facility] Address: [address] [place] [address] Performed By: #### 5 7021-8 #### [facility] CLIA [id number] [address] [place] [address] [place] Eosinophils/100 WBC (Bld) 2.3 % Normal [facility] Comment on above: Order Comment: Speci men Type: BLOOD SPECIMEN Ordering Facility: [facility] Address: [address] [place] [address] Performed By: #### 5 7021-8 #### [facility] CLIA [id number] [address] [place] [address] Erythrocyte distribution width (RBC) [Ratio] 12.8 % Normal 11.5-15.0 [facility] Comment on above: Order Comment: Speci men Type: BLOOD SPECIMEN Ordering Facility: [facility] Address: [address] [place] [address] Performed By: #### 5 7021-8 #### [facility] CLIA [id number] [address] [place] [address] [place] Hematocrit (Bld) [Volume fraction] 32.3 % Low 36.0-46.0 [facility] Comment on above: Order Comment: Speci men Type: BLOOD SPECIMEN Ordering Facility: [facility] Address: [address] [place] [address] Performed By: #### 5 7021-8 #### [facility] IA [id number] [address] [place] [address] [place] Hemoglobin (Bld) [Mass/Vol] 10.7 g/dL Low 11.5-15.5 [facility] Comment on above: Order Comment: Speci men Type: BLOOD SPECIMEN Ordering Facility: [facility] Address: [address] [place] [address] Performed By: #### 5 7021-8 #### [facility] CLIA [id number] [address] [place] [address] [place] IMMATURE GRAN % 0.3 % Normal [facility] Comment on above: Order Comment: Speci men Type: BLOOD SPECIMEN Ordering Facility: [facility] Address: [address] [place] [address] Performed By: #### 5 7021-8 #### [facility] CLIA [id number] [address] [place] [address] [place] IMMATURE GRAN ABS <0.03 Normal <0.10 [facility] Comment on above: Order Comment: Speci men Type: BLOOD SPECIMEN Ordering Facility: [facility] Address: [address] [place] [address] Performed By: #### 5 7021-8 #### [facility] CLIA [id number] [address] [place] [address] Lymphocytes (Bld) [#/Vol] 1.39 10*3/uL Normal 1.00-4.00 [facility] Comment on above: Order Comment: Speci men Type: BLOOD SPECIMEN Ordering Facility: [facility] Address: [address] [place] [address] Performed By: #### 5 7021-8 #### [facility] CLIA [id number] [address] [place] [address] Lymphocytes/100 WBC (Bld) 19.7 % Normal [facility] Comment on above: Order Comment: Speci men Type: BLOOD SPECIMEN Ordering Facility: [facility] Address: [address] [place] [address] Performed By: #### 5 7021-8 #### [facility] CLIA [id number] [address] [place] [address] STATES [facility] MCH (RBC) [Entitic mass] 29.8 pg Normal 26.0-34.0 [facility] Comment on above: Order Comment: Speci men Type: BLOOD SPECIMEN Ordering Facility: [facility] Address: [address] [place] [address] Performed By: #### 5 7021-8 #### [facility] CLIA [id number] [address] [place] [address] [place] MCHC (RBC) [Mass/Vol] 33.1 g/dL Normal 30.5-36.0 [facility] Comment on above: Order Comment: Speci men Type: BLOOD SPECIMEN Ordering Facility: [facility] Address: [address] [place] [address] Performed By: #### 5 7021-8 #### [facility] CLIA [id number] [address] [place] [address] [place] MCV (RBC) [Entitic vol] 90.0 fL Normal 80.0-100.0 [facility] Comment on above: Order Comment: Speci men Type: BLOOD SPECIMEN Ordering Facility: [facility] Address: [address] [place] [address] Performed By: #### 5 7021-8 #### [facility] CLIA [id number] [address] [place] [address] [place] Monocytes (Bld) [#/Vol] 0.55 10*3/uL Normal <0.87 [facility] Comment on above: Order Comment: Speci men Type: BLOOD SPECIMEN Ordering Facility: [facility] Address: [address] [place] [address] Performed By: #### 5 7021-8 #### [facility] CLIA [id number] [address] [place] [address] [place] Monocytes/100 WBC (Bld) 7.8 % Normal [facility] Comment on above: Order Comment: Speci men Type: BLOOD SPECIMEN Ordering Facility: [facility] Address: [address] [place], [place] [address] Performed By: #### 5 7021-8 #### [facility] CLIA [id number] [address] [place] [address] [place] Neutrophils (Bld) [#/Vol] 4.88 10*3/uL Normal 1.45-7.50 [facility] Comment on above: Order Comment: Speci men Type: BLOOD SPECIMEN Ordering Facility: [facility] Address: [address] [place], [place] [address] Performed By: #### 5 7021-8 #### [facility] CLIA [id number] [address] [place] [address] [place] Neutrophils/100 WBC (Bld) 69.3 % Normal [facility] Comment on above: Order Comment: Speci men Type: BLOOD SPECIMEN Ordering Facility: [facility] Address: [address] [place] [address] Performed By: #### 5 7021-8 #### [facility] CLIA [id number] [address] [place] [address] [place] Nucleated RBC (Bld) [#/Vol] 10*3/uL Normal <0.01 [facility] Comment on above: Order Comment: Speci men Type: BLOOD SPECIMEN Ordering Facility: [facility] Address: [address] [place] [address] Performed By: #### 5 7021-8 #### [facility] CLIA [id number] [address] [place] [address] [place] Nucleated RBC/100 WBC (Bld) [Ratio] 0.0 /100 WBC Normal [facility] Comment on above: Order Comment: Speci men Type: BLOOD SPECIMEN Ordering Facility: [facility] Address: [address] [place] [address] Performed By: #### 5 7021-8 #### [facility] CLIA [id number] [address] [place] [address] [place] Platelet mean volume (Bld) [Entitic vol] 9.0 fL Normal 9.0-12.7 [facility] Comment on above: Order Comment: Speci men Type: BLOOD SPECIMEN Ordering Facility: [facility] Address: [address] [place] [address] Performed By: #### 5 7021-8 #### [facility] CLIA [id number] [address] [place] [address] [place] Platelets (Bld) [#/Vol] 241 10*3/uL Normal 150-400 [facility] Comment on above: Order Comment: Speci men Type: BLOOD SPECIMEN Ordering Facility: [facility] Address: [address] [place], [place] [address] Performed By: #### 5 7021-8 #### [facility] CLIA [id number] [address] [place] [address] [place] RBC (Bld) [#/Vol] 3.59 10*6/uL Low 3.90-5.20 [facility] Comment on above: Order Comment: Speci men Type: BLOOD SPECIMEN Ordering Facility: [facility] Address: [address] [place] [address] Performed By: #### 5 7021-8 #### [facility] CLIA [id number] [address] [place] [address] [place] WBC (Bld) [#/Vol] 7.04 10*3/uL Normal 3.70-11.00 [facility] Comment on above: Order Comment: Speci men Type: BLOOD SPECIMEN Ordering Facility: [facility] Address: [facility] [address] Performed By: #### 5 7021-8 #### [facility] CLIA [id number] [address] [id number] [facility] CONSULT PROGon 03-29-2022 CONSULT PROG HNO ID: [id number] Author: Joslyn Jain APRN.[employer]BI SPECIAL AGENT Service: Pain Management Author Type: Nurse Practitioner [...] is on liq diet, currently on Dilaudid PEER EDUCATOR at 0/0.2/10/6 last 2 hours 06/27 bolus [...] No Relieved: Yes - NOW with increase PEER EDUCATOR and Repositioning and PEER EDUCATOR Is patient satisfied with pain control: Yes [...] mL PERIPHERAL NERVE CATHETER CONTINUOUS - HYDROmorphone PEER EDUCATOR 0.5 mg/mL in NaCl 0.9% 100 mL [...] 69.3 (more content not included)... Normal [facility] Magnesium SerPl-mCncon 03-29 Magnesium [Mass/Vol] 1.4 mg/dL Low 1.7-2.3 [facility] Comment on above: Order Comment: Speci men Type: BLOOD SPECIMEN Ordering Facility: [facility] Address: [address] [id number] Performed By: #### 5 8410-2 #### [facility] CLIA [id number] NURSING PROGon 03-29-2022 NURSING PROG HNO ID: [id number] Author: Dipti Crowley RN Service: Nursing Author Type: Registered Nurse Type: Nursing Progress Note Filed: 03/29/2022 2:00 PM Note Text: Nursing Progress Note Patient Name: Mary Leal Patient Location: [place] [address] __ Daily Note: Patient VSS. RA POx. Pain level better controlled now that PEER EDUCATOR initiated. B/L Ropivacaine Tap Blocks with dressings [...] This note was completed by: Dipti Crowley [facility] NURSING PROG HNO ID: [id number] Author: Kev Leone RN Service: ? Author Type: Registered Nurse Type: Nursing Progress Note Filed: 03/29/2022 3:53 AM Note Text: Nursing Progress Note Patient Name: Mary Leal Patient Location: -PK3B22/[id number]-72 __ Daily Note: 0350: Pt states she is in 10/10 pain, pt has no PO pain meds ordered, page sent to surgery resident This note was completed by: Kev Leone [facility] PT EDon 03-29-2022 PT ED HNO ID: [id number] Author: Merced Morales DTR Service: Nutrition Therapy Author Type: Mathematician Research Type: Patient Education Filed: 03/29/2022 11:05 AM [...] March 29, 2022 TIME: 11:04 AM PAGER: [facility] Phosphate SerPl-mCncon 03-29 Phosphate [Mass/Vol] 2.9 mg/dL Normal 2.7-4.8 [facility] Comment on above: Order Comment: Speci men Type: BLOOD SPECIMEN Ordering Facility: [facility] Address: [address] [place] [address] [place] [address] Performed By: #### 5 8410-2 #### [facility] CLIA [id number] [place] [address] [place] ANES PRE-OPon 03-28-2022 ANES PRE-OP HNO ID: [id number] Author: Anibal Bertrand MD Service: Anesthesiology Author [...] (FLONASE) 50 mcg/actuation nasal spray Use 1 [place] in each nostril on (more content not included)... [facility] BRIEF OP NOTon 03-28-2022 BRIEF OP NOT HNO ID: [id number] Author: Nita Lamas MD Service: Colorectal Author Type: Fellow Type: Brief Op Note Filed: 03/28/2022 3:43 PM Note Text: BRIEF OPERATIVE NOTE - COLORECTAL SURGERY Log ID: [id number] Surgery/Procedure Date: 03/28/2022 Incision/Procedure Start Time: 9:47 AM Incision Close/Procedure End Time: 3:40 PM Surgeon(s) and Creative Writer(s): Surgeon(s) and Role: * Mary Obrien MD [...] DATE: March 28, 2022 TIME: 3:42 PM [facility] NURSING PROGon 03-28-2022 NURSING PROG HNO ID: [id number] Author: Merced Lay RN Service: ? Author Type: Registered Nurse Type: Nursing Progress Note Filed: 03/28/2022 6:56 PM Note Text: Nursing Progress Note Patient Name: Mary Leal Patient Location: [place] [address] __ Transfer Note: Patient transferred into room/unit [facility] in stable condition. Actions taken: No futher actions taken at this time. Will continue to monitor and check with patient. Paged surgical team. Pt has TAP blocks, but orders were discontinued from PACU. New orders for blocks need to be placed in eMAR. Awaiting call back or orders. This note was completed by: Merced Lay [facility] NURSING PROG HNO ID: [id number] Author: Monica Nicole RN Service: Nursing Author Type: Registered Nurse Type: Nursing Progress Note Filed: 03/28/2022 6:35 PM Note Text: Nursing Progress Note Patient Name: Mary Leal Patient Location: [place] OCEANSIDE/[facility] OR POOL __ Daily Note: 1750: Dr. Novak notified of patients increase in heart rate from arrival to post op. Patient HR now maintaining in the 120s. 1830: supervisor residential rounding at patient bedside. Dressing and abdomen assessed- drainage to be expected on island dressing. Notified him of patients HR running high and notified that patient normally takes 50mg atenolol but held today for surgery. Patient's pain managed and other VS stable at this time. supervisor residential is OK with patient going to regular nursing floor at this time. Family updated. This note was completed by: Monica Nicole [facility] NURSING PROG HNO ID: [id number] Author: Vianney Chacon RN Service: Nursing Author [...] (RECOMMENDATION): None Electronically Signed By: Vianney Chacon [facility] OPERATIVE NOon 03-28-2022 OPERATIVE NO HNO ID: [id number] Author: Mary Obrien MD Service: Colorectal Author Type: Physician Type: Operative Report Filed: 03/28/2022 5:06 PM Note Text: COLON AND RECTAL SURGERY OPERATIVE REPORT PATIENT NAME: Mary Leal ADMISSION DATE: 03/28/2022 LOG ID: [id number] SURGERY/PROCEDURE DATE: 03/28/2022 INCISION/PROCEDURE START TIME: 9:47 AM INCISION CLOSE/PROCEDURE END TIME: 3:40 PM AGE: [age] year old SEX: female SURGEON(S)/PROCEDURALI ST(S) AND MANAGER INTERNET(S): Surgeon(s) and Role: * Mary Obrien MD [...] abdome (more content not included)... Normal [facility] SURGICAL PATHOLOGYon CASE REPORT Normal [facility] Comment on above: Order Comment: Speci harrison Type: BLOOD SPECIMEN Ordering Facility: [facility] Address: [address] [place] [address] Result Comment: [facility] Pathology Report Case: [id number] Authorizing Provider: Mary Obrien MD Collected: 03/28/2022 01:43 PM Ordering Location: [facility] Received: 03/28/2022 04:10 PM Operating Room Pathologist: Alexei Rodriguez MD Specimen: COLON RESECTION, terminal ileum with ileostomy Performed By: #### 5 7021-8 #### [facility] CLIA [id number] [place] [address] [place] CLINICAL HISTORY ILEORECTAL ANASTOMOSIS, TAKEDOWN OF ILEOSTOMY Normal [facility] Comment on above: Order Comment: Speci men Type: BLOOD SPECIMEN Ordering Facility: [facility] Address: [address] [address] Performed By: #### 5 7021-8 #### [facility] CLIA [id number] [address] DIAGNOSIS COMMENT The histologic findings are [...] evidence of associated inflammation or infectious organisms. [facility] Comment on above: Order Comment: Speci men Type: BLOOD SPECIMEN Ordering Facility: [facility] Address: [address] [place] [address] Performed By: #### 5 7021-8 #### [facility] CLIA [id number] FINAL DIAGNOSIS [facility] Comment on above: Order Comment: Speci men Type: BLOOD SPECIMEN Ordering Facility: [facility] Address: [address] [place] [address] Result Comment: [place] n and terminal ileum with ileostomy, resection: - Colon with patchy active colitis, submucosal fibrosis, acute serositis, and fibrovascular adhesions (see comment). - Small bowel with focal transmural defect, acute serositis, fibrovascular adhesions, and changes consistent with ileostomy site. - Benign lymph nodes. JEL 03/31/2022 Performed By: #### 5 7021-8 #### [facility] CLIA [id number] FINAL PERFORMING LAB [facility] Comment on above: Order Comment: Speci men Type: BLOOD SPECIMEN Ordering Facility: [facility] Address: [address] [place] [address] Result Comment: Diag nostic interpretation performed at [facility], [address] [place] [address] ANDREIIA# [id number] Pump House Technician: Rajiv Anderson M.D. Performed By: #### 5 7021-8 #### [facility] [place] [id number] [address] STATES OF [facility] GROSS DESCRIPTION Normal [facility] Comment on above: Order Comment: Speci men Type: BLOOD SPECIMEN Ordering Facility: [facility] Address: [address] [id number] Result Comment: A. C OLON RESECTION. Received [...] diverticula. The serosa is jaimes-pink and smooth. Senior Product Development Engineer sections are submitted from distal to proximal [...] 2022 9:53 AM Gross examination performed at [facility], [address] [place] [address] CLIA # [id number] Performed By: #### 5 7021-8 #### [facility] CLIA [id number] [address] [place] [address] [place] Q - CBC W/DIFF AND PLTon BASOABS 59 cells/uL Normal 0-200 [facility] Equal Opportunity Officer Comment on above: Order Comment: [facility] performed at: [employer], [address] [place] [address], [address] [place] [address], [phone], Pump House Technician: Gopal Hamilton MD [facility] Date/Time: [id number] [facility] Received Date/Time: [facility] Reported Date/Time: Performed By: #### 9 68T, 91716G, %8293, 09783G, 6399, 496X #### [facility] Default [address] [place] [address] Basophils/100 WBC (Bld) 1.0 % Normal [facility] Equal Opportunity Officer Comment on above: Order Comment: [facility] performed at: [employer], [facility], [facility], [address] [place] [address], [phone], Pump House Technician: Gopal Hamilton MD [facility] Date/Time: [facility] Received Date/Time: [facility] Reported Date/Time: Performed By: #### 9 68T, 79512T, %8293, 11386E, 6399, 496X #### [facility] Default [address] [place] [address] EOSABS 171 cells/uL Normal 15-500 [facility] Equal Opportunity Officer Comment on above: Order Comment: [facility] performed at: [employer] [employer] [facility], [address] , [address] [place] [address], [address] [place] [address], Pump House Technician: Gopal Hamilton MD [facility] Collection Date/Time: [facility] Results Received Date/Time: [facility] Reported Date/Time: Performed By: #### 9 68T, 82745R, %8293, 40611S, 6399, 496X #### [facility] Default [address] [place] [address] Eosinophils/100 WBC (Bld) 2.9 % Normal [facility] Comment on above: Order Comment: [facility] Testing performed at: [employer] [employer] [facility], [address] , [address] [place] [address], [address] [place] [address], Pump House Technician: Gopal Hamilton MD [facility] Date/Time: [facility] Results Received Date/Time: [facility] Reported Date/Time: Performed By: #### 9 68T, 72665G, %8293, 36987V, 6399, 496X #### [facility] Default [address] [place] [address] Erythrocyte distribution width (RBC) [Ratio] 12.9 % Normal 11.0-15.0 [facility] Specialist Comment on above: Order Comment: [facility] performed at: [employer] [employer] [facility], [address] , [address] [place] [address], [address] [place] [address], Pump House Technician: Gopal Hamilton MD [facility] Date/Time: [facility] Results Received Date/Time: [facility] Reported Date/Time: Performed By: #### 9 68T, 77352L, %8293, 22887I, 6399, 496X #### [facility] Default [address] [place] [address] Hematocrit (Bld) [Volume fraction] 38.1 % Normal 35.0-45.0 [facility] Equal Opportunity Officer Comment on above: Order Comment: [facility] Testing performed at: [employer] [employer] [facility], [address] [place] [address], [address] [place] [address], [address] [place] [address], Pump House Technician: Gopal Hamilton MD [facility] Date/Time: [facility] Results Received Date/Time: [facility] Reported Date/Time: Performed By: #### 9 68T, 17727A, %8293, 39058M, 6399, 496X #### [facility] Default [address] [place] [address] Hemoglobin (Bld) [Mass/Vol] 12.9 g/dL Normal 11.7-15.5 [facility] Equal Opportunity Officer Comment on above: Order Comment: [facility] performed at: [employer] [employer] [facility], [address] [place] [address], [address] [place] [address], [address] [place] [address], Pump House Technician: Gopal Hamilton MD [facility] Date/Time: [facility] Results Received Date/Time: [facility] Reported Date/Time: Performed By: #### 9 68T, 97268B, %8293, 94104H, 6399, 496X #### [facility] Default [address] [place] [address] Lymphocytes (Bld) [#/Vol] 1.375 10*3/uL Normal 850-3900 [facility] Equal Opportunity Officer Comment on above: Order Comment: [facility] performed at: [employer] [employer] [facility], [address] [place] [address], [address] [place] [address], [address] [place] [address], Pump House Technician: Gopal Hamilton MD [facility] Date/Time: [facility] Results Received Date/Time: [facility] Reported Date/Time: Performed By: #### 9 68T, 86975Y, %8293, 87196J, 6399, 496X #### [facility] Default [address] [place] [address] Lymphocytes/100 WBC (Bld) 23.3 % Normal [facility] Specialist Comment on above: Order Comment: [facility] performed at: [employer] [employer] [facility], [address] [place] [address], [address] [place] [address], [address], Pump House Technician: Gopal Hamilton MD [facility] Date/Time: [facility] Results Received Date/Time: [facility] Reported Date/Time: Performed By: #### 9 68T, 73964O, %8293, 20822Y, 6399, 496X #### [facility] Default [address] [place] [address] MCH (RBC) [Entitic mass] 30.0 pg Normal 27.0-33.0 [facility] Comment on above: Order Comment: [facility] Testing performed at: [employer] [employer] [facility], [address] [place] [address], [address] [place] [address], [address], Pump House Technician: Gopal Hamilton MD [facility] Date/Time: [facility] Results Received Date/Time: [facility] Reported Date/Time: Performed By: #### 9 68T, 30358T, %8293, 63126Y, 6399, 496X #### [facility] Default [address] [place] [address] MCHC (RBC) [Mass/Vol] 33.9 g/dL Normal 32.0-36.0 [facility] Comment on above: Order Comment: [facility] Testing performed at: [employer] [employer] [facility], [address] [place] [address], [address] [place] [address], [address] [place] [address], Pump House Technician: Gopal Hamilton MD [facility] Collection Date/Time: [facility] Results Received Date/Time: [facility] Reported Date/Time: Performed By: #### 9 68T, 84194R, %8293, 37972B, 6399, 496X #### [facility] Default [address] [place] [address] MCV (RBC) [Entitic vol] 88.6 fL Normal 80.0-100.0 [facility] Equal Opportunity Officer Comment on above: Order Comment: [facility] Testing performed at: [employer] [employer] [facility], [address] [place] [address], [address] [place] [address], [address] [place] [address], Pump House Technician: Gopal Hamilton MD [facility] Collection Date/Time: [facility] Results Received Date/Time: [facility] Reported Date/Time: Performed By: #### 9 68T, 95860V, %8293, 29932C, 6399, 496X #### [facility] Default [address] [place] [address] MONOABS 460 cells/uL Normal 200-950 [facility] Equal Opportunity Officer Comment on above: Order Comment: [facility] Testing performed at: [employer] [facility], [address] [facility], [address] [place] [address], [address] [place] [address], Pump House Technician: Gopal Hamilton MD [facility] Collection Date/Time: [facility] Results Received Date/Time: [facility] Reported Date/Time: Performed By: #### 9 68T, 72299R, %8293, 71543O, 6399, 496X #### [facility] Default [address] [place] [address] Monocytes/100 WBC (Bld) 7.8 % Normal [facility] Equal Opportunity Officer Comment on above: Order Comment: [facility] Testing performed at: [employer] [facility], [address] [facility], [address] [place] [address], [address] [place] [address], Pump House Technician: Gopal Hamilton MD [facility] Collection Date/Time: [facility] Results Received Date/Time: [facility] Reported Date/Time: Performed By: #### 9 68T, 90805B, %8293, 96770A, 6399, 496X #### [facility] Default [address] [place] [address] Neutrophils (Bld) [#/Vol] 3.835 10*3/uL Normal 4768-7420 [facility] Equal Opportunity Officer Comment on above: Order Comment: [facility] Testing performed at: [employer] [employer] [facility], [address], [address] [place] [address], [address], Pump House Technician: Gopal Hamilton MD [facility] Date/Time: [facility] Results Received Date/Time: [facility] Reported Date/Time: Performed By: #### 9 68T, 43532U, %8293, 65280E, 6399, 496X #### [facility] Default [address] [place] [address] Neutrophils/100 WBC (Bld) 65 % Normal [facility] Equal Opportunity Officer Comment on above: Order Comment: [facility] Testing performed at: [employer] [employer] [facility], [address] , [address] [place] [address], [address], Pump House Technician: Gopal Hamilton MD [facility] Collection Date/Time: [facility] Results Received Date/Time: [facility] Reported Date/Time: Performed By: #### 9 68T, 97136L, %8293, 35871O, 6399, 496X #### [facility] Default [address] [place] [address] Platelet mean volume (Bld) [Entitic vol] 9.3 fL Normal 7.5-12.5 [facility] Equal Opportunity Officer Comment on above: Order Comment: [facility] Testing performed at: [employer] [facility], [address] , [address] [place] [address], [address] [place] [address], Pump House Technician: Gopal Hamilton MD [facility] Collection Date/Time: [facility] Results Received Date/Time: [facility] Reported Date/Time: Performed By: #### 9 68T, 20175M, %8293, 86187O, 6399, 496X #### [facility] Default [address] [place] [address] Platelets (Bld) [#/Vol] 409 10*3/uL High 140-400 [facility] Comment on above: Order Comment: [facility] Testing performed at: [employer] [facility], [address], [address] [place] [address], [address] [place] [address], Pump House Technician: Gopal Hamilton MD [facility] Collection Date/Time: [facility] Results Received Date/Time: [facility] Reported Date/Time: Performed By: #### 9 68T, 05636Y, %8293, 47681G, 6399, 496X #### [facility] Default [address] [place] [address] RBC (Bld) [#/Vol] 4.30 10*6/uL Normal 3.80-5.10 [facility] Comment on above: Order Comment: [facility] Testing performed at: [employer] [facility], [address], [address] [place] [address], [address] [place] [address], Pump House Technician: Gopal Hamilton MD [facility] Collection Date/Time: [facility] Results Received Date/Time: [facility] Reported Date/Time: Performed By: #### 9 68T, 11574U, %8293, 69531B, 6399, 496X #### [facility] Default [address] [place] [address] WBC (Bld) [#/Vol] 5.9 10*3/uL Normal 3.8-10.8 [facility] Comment on above: Order Comment: [facility] Testing performed at: [employer] [facility], [address] [place] [address], [address] [place] [address], [address] [place] [address], Pump House Technician: Gopal Hamilton MD [facility] Collection Date/Time: [facility] Results Received Date/Time: [facility] Reported Date/Time: Performed By: #### 9 68T, 68356N, %8293, 43784V, 6399, 496X #### [facility] Default [address] [place] [address] Q - COMPREHENSIVE METABOLIC PANEL W/EGFRon 03-10-2022 Albumin [Mass/Vol] 4.3 g/dL Normal 3.6-5.1 [facility] Specialist Comment on above: Order Comment: [facility] Testing performed at: [employer] [facility], [address] [place] [address], [address] [place] [address], [address] [place] [address], Pump House Technician: Gopal Hamilton MD [facility] Collection Date/Time: [facility] Results Received Date/Time: [facility] Reported Date/Time: Performed By: #### 9 68T, 96223H, %8293, 28530T, 6399, 496X #### [facility] Default [address] [place] [address] Albumin/Globulin [Mass ratio] 1.7 {ratio} Normal 1.0-2.5 [facility] Equal Opportunity Officer Comment on above: Order Comment: [facility] Testing performed at: [employer] [facility], [address] [place] [address], [address] [place] [address], [address] [place] [address], Pump House Technician: Gopal Hamilton MD [facility] Collection Date/Time: [facility] Results Received Date/Time: [facility] Reported Date/Time: Performed By: #### 9 68T, 00509L, %8293, 14964T, 6399, 496X #### [facility] Default [address] [place] [address] ALP [Catalytic activity/Vol] 134 U/L High 31-125 [place] Equal Opportunity Officer Comment on above: Order Comment: [facility] Testing performed at: [employer] [facility], [address] [facility], [address] [place] [address], [address] [place] [address], Pump House Technician: Gopal Hamilton MD [facility] Collection Date/Time: [facility] Results Received Date/Time: [facility] Reported Date/Time: Performed By: #### 9 68T, 46057H, %8293, 93196H, 6399, 496X #### [facility] Default [address] [place] [address] ALT [Catalytic activity/Vol] 41 U/L High 6-29 [facility] Comment on above: Order Comment: [facility] Testing performed at: [employer] [facility], [address] , [address] [place] [address], [address] [place] [address], Pump House Technician: Gopal Hamilton MD [facility] Collection Date/Time: [facility] Results Received Date/Time: [facility] Reported Date/Time: Performed By: #### 9 68T, 05566U, %8293, 53967G, 6399, 496X #### [facility] Default [address] [place] [address] AST [Catalytic activity/Vol] 33 U/L Normal 10-35 [facility] Comment on above: Order Comment: [facility] Testing performed at: [employer] [facility], [address] , [address] [place] [address], [address] [place] [address], Pump House Technician: Gopal Hamilton MD [facility] Collection Date/Time: [facility] Results Received Date/Time: [facility] Reported Date/Time: Performed By: #### 9 68T, 69801T, %8293, 24513D, 6399, 496X #### [facility] Default [address] [place] [address] BUN/CREA 17 NOT APPLICABLE Normal 6-22 [facility] Comment on above: Order Comment: [facility] Testing performed at: [employer] [facility], [address] [facility], [address] [place] [address], [address] [place] [address], Pump House Technician: Gopal Hamilton MD [facility] Collection Date/Time: [facility] Results Received Date/Time: [facility] Reported Date/Time: Performed By: #### 9 68T, 02208F, %8293, 07901D, 6399, 496X #### [facility] Default [address] [place] [address] Calcium [Mass/Vol] 9.6 mg/dL Normal 8.6-10.2 [facility] Specialist Comment on above: Order Comment: [facility] Testing performed at: [employer] [facility], [address] [facility], [address] [place] [address], [address] [place] [address], Pump House Technician: Gopal Hamilton MD [facility] Collection Date/Time: [facility] Results Received Date/Time: [facility] Reported Date/Time: Performed By: #### 9 68T, 86993N, %8293, 08301D, 6399, 496X #### [facility] Default [address] [place] [address] Chloride [Moles/Vol] 103 mmol/L Normal 98-110 [facility] Comment on above: Order Comment: [facility] Testing performed at: [employer] [facility], [address] [facility], [address] [place] [address], [address] [place] [address], Pump House Technician: Gopal Hamilton MD [facility] Collection Date/Time: [facility] Results Received Date/Time: [facility] Reported Date/Time: Performed By: #### 9 68T, 60136U, %8293, 43047R, 6399, 496X #### [facility] Default [address] [place] [address] CO2 [Moles/Vol] 27 mmol/L Normal 20-32 [facility] Specialist Comment on above: Order Comment: [facility] Testing performed at: [employer] [facility], [address] [facility], [address] [place] [address], [address] [place] [address], Pump House Technician: Gopal Hamilton MD [facility] Collection Date/Time: [facility] Results Received Date/Time: [facility] Reported Date/Time: Performed By: #### 9 68T, 51300B, %8293, 03066G, 6399, 496X #### [facility] Default [address] [place] [address] Creatinine [Mass/Vol] 0.65 mg/dL Normal 0.50-1.10 [facility] Equal Opportunity Officer Comment on above: Order Comment: [facility] Testing performed at: [employer] [facility], [address] [facility], [address] [place] [address], [address] [place] [address], Pump House Technician: Gopal Hamilton MD [facility] Collection Date/Time: [facility] Results Received Date/Time: [facility] Reported Date/Time: Performed By: #### 9 68T, 43774W, %8293, 21823D, 6399, 496X #### [facility] Default [address] [place] [address] eGFRAA (Quest) 121 mL/min/1.73m2 Normal > OR = 60 [facility] Comment on above: Order Comment: [facility] Testing performed at: [employer] [facility], [address] [facility], [address] [place] [address], [address] [place] [address], Pump House Technician: Gopal Hamilton MD [facility] Collection Date/Time: [facility] Results Received Date/Time: [facility] Reported Date/Time: Performed By: #### 9 68T, 54111U, %8293, 40984F, 6399, 496X #### [facility] Default [address] [place] [address] eGFRNAA (Quest) 104 mL/min/1.73m2 Normal > OR = 60 No rthern [place] Equal Opportunity Officer Comment on above: Order Comment: [facility] Testing performed at: [employer] [facility], [address] [place] [address], [address] [place] [address], [address] [place] [address], Pump House Technician: Gopal Hamilton MD [facility] Collection Date/Time: [facility] Results Received Date/Time: [facility] Reported Date/Time: Performed By: #### 9 68T, 03192R, %8293, 67991X, 6399, 496X #### [facility] Default [address] [place] [address] Globulin (S) [Mass/Vol] 2.5 g/dL Normal 1.9-3.7 [facility] Specialist Comment on above: Order Comment: [facility] Testing performed at: [employer] [facility], [address] [place] [address], [address] [place] [address], [address] [place] [address], Pump House Technician: Gopal Hamilton MD [facility] Collection Date/Time: [facility] Results Received Date/Time: [facility] Reported Date/Time: Performed By: #### 9 68T, 74590Z, %8293, 32140O, 6399, 496X #### [facility] Default [address] [place] [address] Glucose [Mass/Vol] 94 mg/dL Normal 65-99 [facility] Specialist Comment on above: Order Comment: [facility] Testing performed at: [employer] [facility], [address] [facility], [address] [place] [address], [address] [place] [address], Pump House Technician: Gopal Hamilton MD [facility] Collection Date/Time: [facility] Results Received Date/Time: [facility] Reported Date/Time: Result Comment: Fasting reference interval Performed By: #### 9 68T, 60792Y, %8293, 73608P, 6399, 496X #### [facility] Default [address] [place] [address] Potassium [Moles/Vol] 4.4 mmol/L Normal 3.5-5.3 Venita larson [place] Equal Opportunity Officer Comment on above: Order Comment: [facility] Testing performed at: [employer] [facility], [address] [facility], [address] [place] [address], [address] [place] [address], Pump House Technician: Gopal Hamilton MD [facility] Collection Date/Time: [facility] Results Received Date/Time: [facility] Reported Date/Time: Performed By: #### 9 68T, 09266N, %8293, 17997K, 6399, 496X #### [facility] Default [address] [place] [address] Protein [Mass/Vol] 6.8 g/dL Normal 6.1-8.1 Jay gambino [place] Equal Opportunity Officer Comment on above: Order Comment: [facility] Testing performed at: [employer] [facility], [address] [facility], [address] [place] [address], [address] [place] [address], Pump House Technician: Gopal Hamilton MD [facility] Collection Date/Time: [facility] Results Received Date/Time: [facility] Reported Date/Time: Performed By: #### 9 68T, 80797D, %8293, 15355O, 6399, 496X #### [facility] Default [address] [place] [address] Sodium [Moles/Vol] 138 mmol/L Normal 135-146 Jay gambino [place] Equal Opportunity Officer Comment on above: Order Comment: [facility] Testing performed at: [employer] [facility], [address] [facility], [address] [place] [address], [address] [place] [address], Pump House Technician: Gopal Hamilton MD [facility] Collection Date/Time: [facility] Results Received Date/Time: [facility] Reported Date/Time: Performed By: #### 9 68T, 82197O, %8293, 52854F, 6399, 496X #### [facility] Default [address] [place] [address] TBIL <0.3 Normal 0.2-1.2 [facility] Equal Opportunity Officer Comment on above: Order Comment: [facility] Testing performed at: [employer] [facility], [address] [facility], [address] [place] [address], [address] [place] [address], Pump House Technician: Gopal Hamilton MD [facility] Collection Date/Time: [facility] Results Received Date/Time: [facility] Reported Date/Time: Performed By: #### 9 68T, 86354U, %8293, 73195C, 6399, 496X #### [facility] Default [address] [place] [address] Urea nitrogen [Mass/Vol] 11 mg/dL Normal 7-25 [facility] Equal Opportunity Officer Comment on above: Order Comment: [facility] performed at: [employer] [facility], [address] [facility], [address] [place] [address], [address] [place] [address], Pump House Technician: Gopal Hamilton MD [facility] Date/Time: [facility] Results Received Date/Time: [facility] Reported Date/Time: Performed By: #### 9 68T, 86187U, %8293, 73961P, 6399, 496X #### [facility] Default [address] [place] [address] Q - DLDL REFLEXon 03-10-2022 Cholesterol in LDL [Mass/Vol] 87 mg/dL Normal <100 [facility] Equal Opportunity Officer Comment on above: Order Comment: [facility] performed at: [employer] [facility], [address] , [address] [place] [address], [address] [place] [address], Pump House Technician: Gopal Hamilton MD [facility] Date/Time: [facility] Results Received Date/Time: [facility] Reported Date/Time: Result Comment: Desirable range <100 mg/dL for primary prevention; <70 mg/dL for patients with CHD or diabetic patients with > or = 2 CHD risk factors. Performed By: #### 9 68T, 69527F, %8293, 44393M, 6399, 496X #### [facility] Default [address] [place] [address] Q - HEMOGLOBIN A1Con 022 HEMOGLOBIN A1c 5.0 % of total Hgb Normal <5.7 No rthern [facility] Comment on above: Order Comment: [facility] performed at: [employer] [facility], [address], [address] [place] [address], [address], Pump House Technician: Gopal Hamilton MD [facility] Date/Time: [facility] [...] diagnosis of diabetes in children. According to [place] [employer] (ADA) guidelines, hemoglobin A1c <7.0% represents optimal control in non- diabetic patients. Different metrics may apply to specific patient populations. Standards of Medical Care in Diabetes(ADA). Performed By: #### 9 68T, 35953A, %8293, 62297F, 6399, 496X #### [facility] Default [address] [place] [address] Q - Lipid Panelon 03-10-2022 Cholesterol [Mass/Vol] 230 mg/dL High <200 [facility] Comment on above: Order Comment: [facility] performed at: [employer] [facility], [address], [address] [place] [address], [address], Pump House Technician: Gopal Hamilton MD [facility] Date/Time: [id number] [facility] Results Received Date/Time: [facility] Reported Date/Time: Performed By: #### 9 68T, 09514R, %8293, 13449O, 6399, 496X #### [facility] Default [address] [place] [address] Cholesterol in HDL [Mass/Vol] 52 mg/dL Normal > OR = 50 [place] Equal Opportunity Officer Comment on above: Order Comment: [facility] performed at: [employer] [facility], [address] , [address] [place] [address], [address] [place] [address], Pump House Technician: Gopal Hamilton MD [facility] Date/Time: [facility] Results Received Date/Time: [facility] Reported Date/Time: Performed By: #### 9 68T, 89801R, %8293, 15047G, 6399, 496X #### [facility] Default [address] [place] [address] Cholesterol.total/Cho lesterol in HDL [Mass ratio] 4.4 {ratio} Normal <5.0 [facility] Equal Opportunity Officer Comment on above: Order Comment: [facility] Testing performed at: [employer] [facility], [address] , [address] [place] [address], [address] [place] [address], Pump House Technician: Gopal Hamilton MD [facility] Collection Date/Time: [facility] Results Received Date/Time: [facility] Reported Date/Time: Performed By: #### 9 68T, 57347Q, %8293, 24271G, 6399, 496X #### [facility] Default [address] [place] [address] LDLD SEE NOTE Normal [place] Equal Opportunity Officer Comment on above: Order Comment: [facility] Testing performed at: [employer] [facility], [address] , [address] [place] [address], [address] [place] [address], Pump House Technician: Gopal Hamilton MD [facility] Collection Date/Time: [facility] [...] LDL-C. Estevan SCHILLING et al. ZANA. 2013;310(19): 4865-6545 ([email or web address]) Performed By: #### 9 68T, 74450W, %8293, 83233P, 6399, 496X #### [facility] Default [address] [place] [address] NON HDL CHOLESTEROL 178 mg/dL (calc) High <130 [facility] Specialist Comment on above: Order Comment: [facility] Testing performed at: [employer] [facility], [address] [facility], [address] [place] [address], [address], Pump House Technician: Gopal Hamilton MD [facility] Collection Date/Time: [facility] Results Received Date/Time: [facility] Reported Date/Time: Result Comment: For patients with diabetes plus 1 major ASCVD risk factor, treating to a non-HDL-C goal of <100 mg/dL (LDL-C of <70 mg/dL) is considered a therapeutic option. Performed By: #### 9 68T, 69271Z, %8293, 32065R, 6399, 496X #### [facility] Default [address] [place] [address] Triglyceride [Mass/Vol] 410 mg/dL High <150 [facility] Equal Opportunity Officer Comment on above: Order Comment: [facility] Testing performed at: [employer] [facility], [address] , [address] [place] [address], [address], Pump House Technician: Gopal Hamilton MD [facility] Collection Date/Time: [id number] [facility] Results Received Date/Time: [id number] [facility] Reported Date/Time: Result Comment: If a non-fasting specimen was collected, consider repeat triglyceride testing on a fasting specimen if clinically indicated. João et al. J. of Clin. Lipidol. 2015;9:129-169. Performed By: #### 9 68T, 02626N, %8293, 69893K, 6399, 496X #### [facility] Default [address] [place] [address] Q - TROPONIN Ion 03-10-2022 TROPONIN I 3 ng/L Normal < OR = 47 [facility] Comment on above: Order Comment: [facility] Testing performed at: [employer], [employer] [facility], [address] [facility], [address] [place], [address], Pump House Technician: Gopal Hamilton MD [facility] Collection Date/Time: [facility] Results Received Date/Time: [facility] Reported Date/Time: Result Comment: In accord with published recommendations, serial testing of troponin I at intervals of 2 to 4 hours for up to 12 to 24 hours is suggested in order to corroborate a single troponin I result. An elevated troponin alone is not sufficient to make the diagnosis of [place]. Performed By: #### 9 68T, 43364K, %8293, 98443O, 6399, 496X #### [facility] Default [address] [place] [address] UA DIP, URINE (POC)on 2021 BILIRUBIN UA (POCT) Negative Negative [facility] CLARITY UA (POCT) Clear [facility] COLOR UA (POCT) Yellow [facility] GLUCOSE UA (POCT) Negative Negative mg/dL [facility] HEMOGLOBIN/BLOOD UA (POCT) Negative Negative [facility] KETONE UA (POCT) Negative Negative mg/dL [facility] LEUKOCYTES UA (POCT) Negative Negative [facility] NITRITE UA (POCT) Negative Negative [facility] PH UA (POCT) 5.0 4.5 - 8.0 [facility] Protein Ql (U) Trace Abnormal Negative mg/dL [facility] SPECIFIC GRAVITY UA (POCT) >=1.030 1.005 - 1.030 [facility] UROBILINOGEN UA (POCT) 0.2 E.U./dL Normal E.U./dL [facility] CNTHERAPYon 01-31-2022 CNTHERAPY OT/PT/Speech Visit (PTLHO) MARY LEAL ([id number]) 1970 F Date Time Provider Department 01/31/22 10:30 AM NEWTON WOODWARD Date Time Provider Department [place] 01/31/2022 10:30 AM [id number], JILL PTKALEIGH [facility] Reason for Visit: Physical [...] (FLONASE) 50 mcg/actuation nasal spray Use 1 [place] in each nostril once daily. - carBAMazepine [...] mg by mouth once daily. [facility] CNTHERAPYon 01-24-2022 CNTHERAPY OT/PT/Speech Visit (PTLHO) MARY LEAL ([id number]) 1970 F Date Time Provider Department 01/24/22 10:30 AM NEWTON WOODWARD PTLHO Date Time Provider Department Center 01/24/2022 10:30 AM [id number] WOODWARD [facility] Reason for Visit: Physical [...] (FLONASE) 50 mcg/actuation nasal spray Use 1 [place] in each nostril once daily. - carBAMazepine [...] mg by mouth once daily. [facility] CNTHERAPYon 01-18-2022 CNTHERAPY OT/PT/Speech Visit (PTLHO) MARY LEAL ([id number]) 1970 F Date Time Provider Department 01/18/22 12:15 PM JESSI ISAACS PTSAVANNAH Date Time Provider Department Center 01/18/2022 12:15 PM [id number], KATHRYN PTSAVANNAH [facility] Reason for [...] (FLONASE) 50 mcg/actuation nasal spray Use 1 [place] in each nostril once daily. - carBAMazepine [...] by mouth once daily. Letter Text [facility] 12-27-2021 [facility] ID: [id number] Author: Sonido Owen MD Service: Colorectal Author Type: Resident Type: Discharge Summary Filed: 12/27/2021 3:55 PM Note Text: Attestation signed by Mary Obrien MD at 12/29/2021 4:11 PM [facility] STAFF PHYSICIAN NOTE OF PERSONAL [...] the PACU and was transferred to the [facility]. Postoperatively, the patient recovered well. Her [...] 50 mg Finesse (more content not included)... [facility] CONSULTon 12-27-2021 CONSULT HNO ID: [id number] Author: Dai Hines RN Service: Wound/Ostomy Author Type: Registered Nurse Type: Consults Filed: 12/27/2021 3:32 PM Note Text: STOMA CARE POST-OPERATIVE ASSESSMENT AND PATIENT EDUCATION Patient Name: Mary Leal Date: December 27, 2021 Time: 3:20 PM ET Care Outcome: Ms. Leal was seen today on the RNF for ostomy education and a pouch change lesson. ET's Next Scheduled Visit: Complete. STOMA ASSESSMENT Stoma type: Loop ileostomy Diameter: 35 mm with and extra 1 mm cut on the medial side of the pouch. Location: RLQ Protrusion: Budded, Os points downward Mucosal condition and color: Red and Goldonna and moist. Boni: No Mucocutaneous Junction: Intact [...] one piece cut to fit drainable pouch (#[id number]) and Coloplast Brava moldable ring (2mm) #[id number]. Brava barrier strips, product # [id number] applied around the border of the pouch. [...] THE CHART OR MODIFY PRINTED COPY. Normal [facility] NURSING PROGon 12-27-2021 NURSING PROG HNO ID: [id number] Author: Marizol Hankins RN Service: ? Author Type: Registered Nurse Type: Nursing Progress Note Filed: 12/27/2021 4:39 PM Note Text: Nursing Progress Note Patient Name: Mary Leal Patient Location: [address] __ Daily Note: Pt AANDO x 3. Lap site CUPOLA PATCHER with glue, no drainage. Pt on GI [...] This note was completed by: Marizol Hankins [facility] NUTRITIONon 12-27-2021 NUTRITION HNO ID: [id number] Author: Merced Morales DTR Service: Nutrition Therapy Author Type: Mathematician Research Type: Nutrition Filed: 12/27/2021 12:16 PM Note Text: NUTRITION THERAPY JOY OPERATOR HELPER NOTE SERVICE DATE: 12/27/2021 SERVICE TIME: 10:00 [...] DATE: December 27, 2021 TIME: 12:15 PM [facility] PT EDon 12-27-2021 PT ED HNO ID: [id number] Author: Merced Morales DTR Service: Nutrition Therapy Author Type: Mathematician Research Type: Patient Education Filed: 12/27/2021 12:16 PM [...] December 27, 2021 TIME: 12:16 PM PAGER: [facility] Basic Metabolic Panlon 12-26 Anion gap [Moles/Vol] 9 mmol/L Normal 9-18 [facility] Comment on above: Performed By: #### B MP #### [place] [phone] Calcium [Mass/Vol] 8.5 mg/dL Normal 8.5-10.5 [facility] Comment on above: Performed By: #### B MP #### [place] [phone] Chloride [Moles/Vol] 102 mmol/L Normal 98-110 [facility] Comment on above: Performed By: #### B MP #### [place] [phone] CO2 [Moles/Vol] 28 mmol/L Normal 23-32 [facility] Comment on above: Performed By: #### B MP #### [place] [phone] Creatinine [Mass/Vol] 0.62 mg/dL Low 0.70-1.40 [facility] Comment on above: Performed By: #### B MP #### [place] [phone] eGFR- Amer. >60 Normal >59 [facility] Comment on above: Performed By: #### B MP #### [place] [phone] eGFR-All Other Races >60 Normal >59 [facility] Comment on above: Result Comment: [...] For more information or to access a 2021 CKD-EPI calculator, visit the National Kidney Foundation website at kidney.org/professionals/kdoqi/gfr_calculator. Performed By: #### B MP #### [place] [phone] Glucose [Mass/Vol] 71 mg/dL Normal 65-100 [facility] Comment on above: Performed By: #### B MP #### [place] [phone] Potassium [Moles/Vol] 4.0 mmol/L Normal 3.5-5.0 [facility] Comment on above: Performed By: #### B MP #### [place] [phone] Sodium [Moles/Vol] 139 mmol/L Normal 132-148 [facility] Comment on above: Performed By: #### B MP #### [place] [phone] Urea nitrogen [Mass/Vol] 10 mg/dL Normal 8-25 [facility] Comment on above: Performed By: #### B MP #### [place] [phone] NURSING PROGon 12-26-2021 NURSING PROG HNO ID: [id number] Author: Dipti Crowley RN Service: Nursing Author Type: Registered Nurse Type: Nursing Progress Note Filed: 12/26/2021 5:25 PM Note Text: Nursing Progress Note Patient Name: Mary Leal Patient Location: [facility]3C33/-NB5P-99 __ Daily Note: Call discontinued as directed in orders. 700cc output from call. 250cc NS instilled and then call catheter removed. Patient assisted to BSC and voided 200cc pink tinged urine. Patient assisted back to bed, not wanting to go to chair. Call light in reach. This note was completed by: Dipti [facility] NURSING PROG HNO ID: [id number] Author: Dipti Crowley, RN Service: Nursing Author Type: Registered Nurse Type: Nursing Progress Note Filed: 12/26/2021 3:51 PM Note Text: Nursing Progress Note Patient Name: Mary Leal Patient Location: [place] [address]/[place] [address] __ Daily Note: Patient AANDOx3. VSS. 2L NC POx. IVF infusing as ordered. Dilaudid PEER EDUCATOR, OXY IR on for pain. Patient drowsy yet easily arousable. Lap sites and transverse incision ELENI with glue. Ileostomy draining liquid brown. Call draining clear yellow. PAS on. No edema. Fa,saman at bed side. Call light in reach. This note was completed by: [facility] Basic Metabolic Panlon 12-25 Anion gap [Moles/Vol] 9 mmol/L Normal 9-18 [facility] Comment on above: Performed By: #### B MP #### [facility] [place] [address] Calcium [Mass/Vol] 8.5 mg/dL Normal 8.5-10.5 [facility] Comment on above: Performed By: #### B MP #### [facility] [place] [address] Chloride [Moles/Vol] 104 mmol/L Normal 98-110 [facility] Comment on above: Performed By: #### B MP #### [facility] [place] [phone] CO2 [Moles/Vol] 28 mmol/L Normal 23-32 [facility] Comment on above: Performed By: #### B MP #### [place] [phone] Creatinine [Mass/Vol] 0.72 mg/dL Normal 0.70-1.40 [facility] Comment on above: Performed By: #### B MP #### [place] [address] eGFR- Amer. >60 Normal >59 [facility] Comment on above: Performed By: #### B MP #### [place] [phone] eGFR-All Other Races >60 Normal >59 [facility] Comment on above: Result Comment: [...] [email or web address]/gfr_[email or web address]. Performed By: #### B MP #### [place] [phone] Glucose [Mass/Vol] 91 mg/dL Normal 65-100 [facility] Comment on above: Performed By: #### B MP #### [place] [phone] Potassium [Moles/Vol] 4.0 mmol/L Normal 3.5-5.0 [facility] Comment on above: Performed By: #### B MP #### [place] [phone] Sodium [Moles/Vol] 141 mmol/L Normal 132-148 [facility] Comment on above: Performed By: #### B MP #### [facility] [address] [place] [address] Urea nitrogen [Mass/Vol] 12 mg/dL Normal 8-25 [facility] Comment on above: Performed By: #### B MP #### [facility] [address] [place] [address] CASE MGT INIT ASSESon 2021 CASE MGT INIT ASSES HNO ID: [id number] Author: TITO Whitt Service: ? 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 Last discharge within 30 days: No Advance Directive: Current Advance Directive: Health Care Power of Financial Management In Chart: No Health LiteracyHow often do [...] None Has the Patient Been in a Fci Facility in the Past 30 days?: No [...] Completely I feel financially burdened by my ctu-zi-relocg expenses for my prescription medication:: 0 - Disagree Completely Risk Score: 0 Patient is categorized as: Low risk < 2 Are you interested in bedside delivery of your medications? Yes Is Patient Psychosocially Complex?: No ASSESSMENT AND PLAN: Medical Needs: Medical Needs: None Psychosocial Needs: Psychosocial Needs: None FREEDOM OF CHOICE EXPLAINED: [place] of Choice Given: Yes Level of Care Discussed: Home Care Financial Disclosure Provided: Yes [facility] Provider List: Home Care Provider list within the patient's requested geographic area shared with the patient/family: Yes within: 15 miles of zip code: [address] Quality and resource use metrics shared with [...] bedside with pt during assessment. Charo Obando [phone]. Home care referrals sent. Daughter to transport at time of discharge. SIGNATURE: TITO Whitt PATIENT NAME: Mary Leal DATE: December 25, 2021 TIME: 11:39 AM PAGER/CONTACT #: [phone] Normal [facility] CBC and Differentialon 12-25 Abs Baso 0.03 k/uL Normal <0.11 [facility] Comment on above: Performed By: #### 5 7021-8 #### [facility] CLIA [id number] [address] [place] [address] [place] Abs Childress 0.45 k/uL Normal <0.87 [facility] Comment on above: Performed By: #### 5 7021-8 #### [facility] CLIA [id number] [address] [place] [address] [place] Abs Neut 3.85 k/uL Normal 1.45-7.50 [facility] Comment on above: Performed By: #### 5 7021-8 #### [facility] CLIA [id number] [address] [place] [address] [place] Absolute nRBC <0.01 Normal <0.01 [facility] Comment on above: Performed By: #### 5 7021-8 #### [facility] CLIA [id number] [address] [place] [address] [place] Basophils/100 WBC (Bld) 0.5 % Normal [facility] Comment on above: Performed By: #### 5 7021-8 #### [facility] CLIA [id number] [address] [place] [address] [place] DTYPE Auto Diff Normal [facility] Comment on above: Performed By: #### 5 7021-8 #### [facility] CLIA [id number] [address] [place] [address] [place] Eosinophils (Bld) [#/Vol] 0.14 10*3/uL Normal <0.46 [facility] Comment on above: Performed By: #### 5 7021-8 #### [facility] CLIA [id number] [address] [place] [address] [place] Eosinophils/100 WBC (Bld) 2.3 % Normal [facility] Comment on above: Performed By: #### 5 7021-8 #### [facility] CLIA [id number] [address] [place] [address] [place] Erythrocyte distribution width (RBC) [Ratio] 11.6 % Normal 11.5-15.0 [facility] Comment on above: Performed By: #### 5 7021-8 #### [facility] CLIA [id number] [address] [place] [address] Hematocrit (Bld) [Volume fraction] 35.2 % Low 36.0-46.0 [facility] Comment on above: Performed By: #### 5 7021-8 #### [facility] CLIA [id number] [address] [place] [address] [place] Hemoglobin (Bld) [Mass/Vol] 11.6 g/dL Normal 11.5-15.5 [facility] Comment on above: Performed By: #### 5 7021-8 #### [facility] CLIA [id number] [address] [place] [address] Lymphocytes (Bld) [#/Vol] 1.47 10*3/uL Normal 1.00-4.00 [facility] Comment on above: Performed By: #### 5 7021-8 #### [facility] CLIA [id number] [address] [place] [address] Lymphocytes/100 WBC (Bld) 24.7 % Normal [facility] Comment on above: Performed By: #### 7021-8 #### [facility] CLIA [id number] [address] [place] [address] [place] MCH 29.5 pG Normal 26.0-34.0 [facility] Comment on above: Performed By: #### 5 7021-8 #### [facility] CLIA [id number] [address] [place] [address] MCHC (RBC) [Mass/Vol] 33.0 g/dL Normal 30.5-36.0 [facility] Comment on above: Performed By: #### 5 7021-8 #### [facility] CLIA [id number] [address] [place] [address] [place] MCV (RBC) [Entitic vol] 89.6 fL Normal 80.0-100.0 [facility] Comment on above: Performed By: #### 5 7021-8 #### [facility] CLIA [id number] [address] [place] [address] [place] Monocytes/100 WBC (Bld) 7.6 % Normal [facility] Comment on above: Performed By: #### 5 7021-8 #### [facility] CLIA [id number] [place] [address] [place] Neutrophils/100 WBC (Bld) 64.9 % Normal [facility] Comment on above: Performed By: #### 5 7021-8 #### [facility] CLIA [id number] [address] [place] [address] [place] NRBCs 0.0 /100 WBC Normal 0 [facility] Comment on above: Performed By: #### 5 7021-8 #### [facility] CLIA [id number] [address] [place] [address] [place] Platelet mean volume (Bld) [Entitic vol] 9.0 fL Normal 9.0-12.7 [facility] Comment on above: Performed By: #### 5 7021-8 #### [facility] CLIA [id number] [address] [place] [address] [place] Platelets (Bld) [#/Vol] 271 10*3/uL Normal 150-400 [facility] Comment on above: Performed By: #### 5 7021-8 #### [facility] CLIA [id number] [address] [place] [address] [place] RBC (Bld) [#/Vol] 3.93 10*6/uL Normal 3.90-5.20 [facility] Comment on above: Performed By: #### 5 7021-8 #### [facility] CLIA [id number] [address] [place] [address] [place] WBC (Bld) [#/Vol] 5.96 10*3/uL Normal 3.70-11.00 [facility] Comment on above: Performed By: #### 5 7021-8 #### [facility] CLIA [id number] [address] [place] [address] [place] CONSULTon 12-25-2021 CONSULT HNO ID: [id number] Author: Tri Kowalski APRN.[employer] SPECIAL AGENT Service: Wound/Ostomy Author Type: Nurse Practitioner Type: Consults Filed: 12/25/2021 11:37 AM Note Text: OSTOMY SERVICE CONSULT OUTBOUND SUPERVISOR SERVICE DATE: 12/25/2021 SERVICE TIME: 1015 Consultation [...] mL 20 mEq INTRAVENOUS PRN - HYDROmorphone PEER EDUCATOR 0.5 mg/mL in NaCl 0.9% 100 mL [...] with h (more content not included)... Normal [facility] NURSING PROGon 12-25-2021 NURSING PROG HNO ID: [id number] Author: Marilyn Henning RN Service: ? Author Type: Registered Nurse Type: Nursing Progress Note Filed: 12/25/2021 7:01 PM Note Text: Nursing Progress Note Patient Name: Mary Leal Patient Location: [place] [address] [address] __ Daily Note: 0930 Pt AANDOx3. Lap sites intact. ABD tender. PEER EDUCATOR pump running. Stoma beefy red, dark brown liquid output. Pt stated that the eye pressure felt overnite has resolved. Call remains in place until OBGYN sees pt 12/26. Pt requesting PO pain medication. 1100 Pt up to chair. [address] Ontiveros bedside. 5mg oxy ordered q4 PRN. This note was completed by: Marilyn Henning [facility] NURSING PROG HNO ID: [id number] Author: Beto Ford RN Service: ? Author Type: Registered Nurse Type: Nursing Progress Note Filed: 12/25/2021 6:12 AM Note Text: Nursing Progress Note Patient Name: Mary Leal Patient Location: [place] [address] [address] __ Daily Note: Pt has been complaining [...] This note was completed by: Beto Ford [facility] ANES POSTPROC EVALon 022 ANES POSTPROC EVAL HNO ID: [id number] Author: Charisse Aggarwal MD Service: Anesthesiology Author Type: Anesthesiologist Type: Anesthesia Postprocedure Evaluation Filed: 12/24/2021 4:17 PM Note Text: POST ANESTHESIA EVALUATION NOTE : 1970 Procedure Summary Date: 12/24/21 Room / Location: OR / OR Anesthesia Start: 08 Anesthesia Stop: 1413 Procedures: PROCTOPEXY LAPAROSCOPIC (N/A [...] December 24, 2021 TIME: 4:17 PM CSN: [id number] [facility] ANES PRE-OPon 12-24-2021 ANES PRE-OP HNO ID: [id number] Author: Chayito Ojeda MD Service: Anesthesiology Author [...] TAPE (N/A ) CYSTOSCOPY (N/A ) Location: [facility] OR10 / [facility] OR Surgeons: Mary Obrien [...] December 24, 2021 TIME: 7:27 AM CSN: [id number] [facility] BRIEF OP NOTon 12-24-2021 BRIEF OP NOT HNO ID: [id number] Author: Jenifer Ayala MD Service: Colorectal Author Type: Fellow Type: Brief Op Note Filed: 12/24/2021 12:16 PM Note Text: BRIEF OPERATIVE NOTE - COLORECTAL SURGERY Log ID: [id number] Surgery/Procedure Date: 12/24/2021 Incision/Procedure Start Time: 8:50 AM Incision Close/Procedure End Time: Surgeon(s) and Creative Writer(s): Surgeon(s) and Role: Panel 1: * Mary [...] DATE: December 24, 2021 TIME: 12:10 PM [facility] NURSING PROGon 12-24-2021 NURSING PROG HNO ID: [id number] Author: Marilyn Henning RN Service: ? Author Type: Registered Nurse Type: Nursing Progress Note Filed: 12/24/2021 6:36 PM Note Text: Nursing Progress Note Patient Name: Mary Leal Patient Location: [address]-59 __ Daily Note: 1816 Pt arrived on floor with 100.2F temperature. Scheduled tylenol administered. Temperature 98.6 at 1816. Surgical incisions ELENI with glue, intact. Ostomy beefy red, producing sweat. Call remains in place. Pt Educated on PEER EDUCATOR pump usage. Daughter bedside. Bed low and locked. This note was completed [facility]: [facility]: [id number] Author: Marilyn Henning RN Service: ? Author Type: Registered Nurse Type: Nursing Progress Note Filed: 12/24/2021 4:19 PM Note Text: Nursing Progress Note Patient Name: Mary Leal Patient Location: [address]/SG8R-89 __ Transfer Note: Patient transferred into room/unit PK3-33 in stable condition. Actions taken: No futher actions taken at this time. Will continue to monitor and check with patient. This note was completed by: Marilyn [facility] NURSING PROG HNO ID: [id number] Author: Dianelys Lopez RN Service: Nursing Author Type: Registered Nurse Type: Nursing Progress Note Filed: 12/24/2021 6:30 AM Note Text: PATIENT EDUCATION TOPIC: PROCEDURE / SURGERY: Pre-op Teaching: Protocols PATIENT NAME: Mray Leal PATIENT LOCATION: [facility] OR POOL/FV OR [...] (RECOMMENDATION): None Electronically Signed By: Dianelys Lopez [facility] OPERATIVE NOon 12-24-2021 OPERATIVE NO HNO ID: [id number] Author: Mary Obrien MD Service: Colorectal Author Type: Physician Type: Operative Report Filed: 12/24/2021 12:34 PM Note Text: COLON AND RECTAL SURGERY OPERATIVE REPORT PATIENT NAME: Mary Leal ADMISSION DATE: 12/24/2021 LOG ID: [id number] SURGERY/PROCEDURE DATE: 12/24/2021 INCISION/PROCEDURE START TIME: 8:50 AM INCISION CLOSE/PROCEDURE END TIME: AGE: [age] year old SEX: female SURGEON(S)/PROCEDURALI ST(S) AND MANAGER INTERNET(S): Surgeon(s) and Role: Panel 1: * Mary [...] port site. This was ligated with a ifyvcd-ou-fcpws Vicryl suture and was confirmed to be [...] above. Mary Obrien, (more content not included)... [facility] OPERATIVE NO HNO ID: [id number] Author: Pam Wang MD Service: Urogynecology Author Type: Physician Type: Operative Report Filed: 12/28/2021 10:03 AM Note Text: OPERATIVE/PROCEDURE REPORT LOG ID: [id number] SURGERY/PROCEDURE DATE: 12/24/2021 INCISION/PROCEDURE START TIME: 8:50 AM INCISION CLOSE/PROCEDURE END TIME: 1:50 PM SURGEON(S)/PROCEDURALI ST(S) AND MANAGER INTERNET(S): Surgeon(s) and Role: Panel 1: * Mary [...] the (more content not included)... Normal [facility] Type and SCR (30D)on 022 ABO/RH(D) Positive [facility] Comment on above: Performed By: #### T SCR30 ####[id number] [place], [place] [phone] Confirm Blood Typeon 021 ABO/RH(D) Positive [facility] Comment on above: Performed By: #### C ONABO ####[facility] [place], [place] [phone] Type and SCR (30D)on 021 ABO/RH(D) Positive [facility] Comment on above: Performed By: #### T SCR30 ####[address] [phone] Nonvisit Note - PTon Nonvisit Note - PT Chart reviewed with eval prepped for scheduled eval. KK [facility] Consenton 01-08-2021 Consent [id number]#1. 00CD:127 [facility] Coding Summary.on 01-06-2021 Coding Summary. CODING DATE: 01/06/2021 FINAL [facility] STATUS: Home (Routine DC) PAYOR: Medicaid EA DESCRIPTION 0439 CLASS V PHARMACOTHERAPY ADMIT DX: REASON FOR VISIT DX: N32.81 Overactive bladder FINAL DX: PRINCIPAL: N32.81 Overactive bladder SECONDARY: N39.46 Mixed incontinence F31.9 Bipolar disorder, unspecified I10 Essential (primary) hypertension K21.9 Gastro-esophageal reflux disease without esophagitis M19.90 Unspecified osteoarthritis, unspecified site PYMT PROC EA STAT DESCRIPTION DOCTOR NAME DATE NOTE: The code number assigned matches the documented diagnosis and / or procedure in the patient's chart. However, the narrative phrase printed from the coding software may appear abbreviated, or result in slightly different terminology. Coded By: Eileen Scott Date Saved: 01/06/2021 09:01 am [facility] Consent for Procedure/Surger yon 01-04-2021 Consent for Procedure/Surgery [id number]#1. 00CD:127 [facility] Consent for Procedure/Surgery [id number]#1. 00CD:127 [facility] Consent for Treatmenton Consent for Treatment [id number]#1.0 0CD:127 [facility] Discharge Instructionson Discharge Instructions [id number]#1. 00CD:127 [facility] Inpatient Patient Summaryon 01-04-2021 Inpatient Patient Summary [id number] Clinical Summary Person Information Name: MARY LEAL Age: 50 Years : 1970 Sex: Female PCP: Isatu GÓMEZ DO Marital Status: Race: White Ethnicity: Non- or Language: Belizean Visit Id: Visit Reason: MIXED INCONTINENCE Speciality: Acuity: Enc Type: Outpatient Med Service: Surgery Arrival: 01/04/2021 12:31:00 Discharge: Dispo Type: Address: [address] [place] [phone] Provider Notes: Diagnosis: Problems Active Decreased bladder [...] This Visit Final Med List: acetaminophen-hydrocod one ([place] 5/325 Tab) By Mouth every 6 hours. [...] MD Follow up: With: Address: When: Clifford [address], [address], [facility] [address] [place] [phone] Business (1) Within 2 weeks Comments: Call for followup appointment. Have a great day! Patient Education Information: EU - Cystoscopy with Botox Injection Discharge Instructions (Custom) [facility] IntraOperative Documentson 0 01-04-2021 IntraOperative Documents [id number]#1. 00CD:127 Normal [facility] IntraOperative Documents [id number]#1. 00CD:127 [facility] Main OR Intraoperative Recor don 01-04-2021 Main OR Intraoperative Record IntraOp Document Type FTURO Summary Primary Physician: Clifford OCONNOR MD Finalized Date/Time: 01/04/21 13:27:05 Pt. Name: MARY LEALO.B./Sex: 1970 Female Med Rec #: [id number] Physician: Clifford OCONNOR MD Financial #: [id number] Pt. Type: O Room/Bed: / Admit/Disch: 01/04/21 12:31:00 - Institution: Case Times FTURO Entry 1 Patient Times In Room 01/04/21 13:07:00 Out Room 01/04/21 13:27:00 Procedure Times Start 01/04/21 13:19:00 Stop 01/04/21 13:23:00 Anesthesia Times Last Modified By: Niecy Tran RN 01/04/21 13:27:01 Case Attendance FTURO Entry 1 Entry 2 Entry 3 Case Attendee Clifford OCONNOR MD DIRECT CARE SPECIALIST, Akin Mejias CST, Debi Chand Role Performed [...] Case Attendee Niecy Tran RN Role Performed Clinical Quality Rn - Primary Time In 01/04/21 13:07:00 Time Out 01/04/21 13:27:00 Procedure CYSTOSCOPY LOCAL BOTOX INJECTION(.) Comments Last Modified By: Niecy Tran RN 01/04/21 13:27:02 Surgical Procedures FTURO Entry 1 Procedure Description Procedure CYSTOSCOPY LOCAL BOTOX Modifiers . INJECTION Surgeon Description CYSTOSCOPY BOTOX 50 UNITS LOT NUMBER [id number] EXP DATE 08/2023 Primary Procedure Yes Primary [...] By: Niecy Tran RN 01/04/21 13:27 Normal [facility] Main OR Preoperative Recordo n 01-04-2021 Main OR Preoperative Record Holding Area Document Type FTURO Summary Primary Physician: Clifford OCONNOR MD Finalized Date/Time: 01/04/21 13:05:55 Pt. Name: ELVISMARY D.O.B./Sex: 1970 Female Med Rec #: [id number] Physician: Clifford OCONNOR MD Financial #: [id number] Pt. Type: O Room/Bed: / Admit/Disch: 01/04/21 [...] 12:46 Niecy Tran RN 01/04/21 13:05 Normal [facility] Operative Reporton Operative Report Patient: MARY LEAL [...] arranged, F/U in two weeks. . Normal [facility] Comment on above: Result Comment: Elec tronically Signed By: Clifford OCONNOR MD\.br\Date and Time Signed: 01/04/21 13:30 EST Outpatient Surgery Discharge Instructionon 01-04-2021 Outpatient Surgery Discharge Instruction [address] [address] Patient Discharge Instructions PERSON INFORMATION Name: MARY LEAL Date of : 1970 Current Date: 01/04/2021 13:25:41 PHYSICIANS Admitting Physician: Clifford OCONNOR MD Comment: Discharge Diagnosis: DARRIAN LEALJONATHAN Keys has been given the following list of follow-up instructions, prescriptions, and patient education materials: IF UNABLE TO CONTACT YOUR PHYSICIAN AND YOU FEEL IT IS AN EMERGENCY, GO TO THE NEAREST EMERGENCY ROOM OR CALL 911 Follow up: With: Address: When: Clifford Naik [facility], [address], [place] [phone] [facility] (1) Within 2 weeks Comments: [...] Date You may receive a survey from [employer] asking you to rate your care experience. Your feedback is important and will help us understand what we do well and how we can improve the quality of care we provide to you, your loved ones and our community. It?s an honor to serve you. Thank you for choosing [facility] Normal [facility] XR Shoulder - right 3 Viewso n 12-25-2020 IMPRESSION: NO SIGNIFICANT CHANGE Biscuit Packer: [facility] Transcribe Date/Time: Dec 25 2020 12:18P Dictated by : AWA LOPEZ MD This examination was interpreted and the report reviewed and electronically signed by: AAW LOPEZ MD on Dec 25 2020 12:21PM [facility] DIVISION OF RADIOLOGY * * *Final [...] abnormality. - IMPRESSION IMPRESSION: NO SIGNIFICANT CHANGE Biscuit Packer: [facility] Transcribe Date/Time: Dec 25 2020 12:18P Dictated by : AWA LOPEZ MD This examination was interpreted and the report reviewed and electronically signed by: AWA LOPEZ MD on Dec 25 2020 12:21PM EST [facility] Radiology Study observation (narrative) [facility] XR Shoulder - right 3 ViewsO rdered By: Ccf Provider on 12-25-2020 [facility] PT - Assessmentson 1 PT - Assessments [id number]#1. 00CD:127 Normal [facility] Ambulatory Clinical Summaryo n 11-11-2020 Ambulatory Clinical Summary {[id number]-[id number]-03-05-b3-c 9-f1}CD:[id number] Normal [facility] Patient Educationon 11-11-19 21 Patient Education Family [...] your urinary (more content not included)... Normal [facility]rology [facility]- [facility] Urology Phone Visit- Telehealth HPI Staff [...] only communication with the patient located at [facility] [phone] , with no one else. If it [...] Francie BENSON, Dawna Feldman [address] [place] [address]- [phone] Additional Instructions: Patient Education Urodynamic Testing Overactive Bladder, Adult I, Christy Gill , personally scribed for Dr. Marmolejo on 10/21/2020 12:00:50. . Documentation recorded by the scribeChritsy, accurately reflects the services(s) I performed and [...] stream His (more content not included)... Normal [facility] Comment on above: Result Comment: Elec tronically Signed By: Francie BENSON, Dawna Feldman\.br\Date and Time Signed: 11/03/20 11:59 EST\.br\Electronically Co-Signed By: Christy Gill MA\.br\Date and Time Co-Signed: 10/21/20 12:01 EST Coding Summary.on 10-28-2020 Coding Summary. CODING DATE: 10/28/2020 FINAL [facility] STATUS: Home (Routine DC) PAYOR: Medicaid [...] Scott Date Saved: 10/28/2020 11:17 am [facility] Ambulatory Clinical Summaryo n 10-27-2020 Ambulatory Clinical Summary {[id number]-[id number]-c 6-e5}CD:[id number] [facility] Consent for Procedure/Surger yon 10-27-2020 Consent for Procedure/Surgery [id number]#1 .00CD:127 [facility] Consent for Treatmenton 10-07 Consent for Treatment [id number]#1.0 0CD:127 Normal [facility] IntraOperative Documentson 1 12-28-2019 IntraOperative Documents [id number]#1 .00CD:127 Normal [facility] Patient Educationon 10-21-20 20 Patient Education Family [...] or depar (more content not included)... Normal [facility] XR Shoulder - right 3 Viewso 09-29-2020 IMPRESSION: No acute osseous findings. Biscuit Packer: [facility] Transcribe Date/Time: Sep 29 2020 8:37A Dictated by : FLORENCE TORRES MD This examination was interpreted and the report reviewed and electronically signed by: FLORENCE TORRES MD on Sep 29 2020 8:38AM [facility] DIVISION OF RADIOLOGY * * *Final [...] other significant abnormality. DIVISION OF RADIOLOGY Provider, [facility] - 09/29/2020 * * *Final Report* * [...] abnormality. IMPRESSION IMPRESSION: No acute osseous findings. Biscuit Packer: [facility] Transcribe Date/Time: Sep 29 2020 8:37A Dictated by : FLORENCE TORRES MD This examination was interpreted and the report reviewed and electronically signed by: FLORENCE TORRES MD on Sep 29 2020 8:38AM EST [facility] Radiology Study observation (narrative) [facility] XR Shoulder - right 3 ViewsO rdered By: Ccf Provider on 09-29-2020 [facility] PT - Assessmentson 0 PT - Assessments [id number]#1. 00CD:127 Normal [facility] Nonvisit Note - PTon 020 Nonvisit Note - PT Per voicemail: she needs to cancel all of her PT due to personal reasons. KK Normal [facility] Provider Letteron 09-09-2020 Provider Letter September 09, 2020 MARY LEAL [address] [place] [address] MARY LEAL 1970 Dear Mary Leal, You [...] appreciate your understanding. Sincerely, [facility] [address], [place] [address] [facility] PT - Assessmentson 0 PT - Assessments [id number]#1. 00CD:127 [facility] PT - Assessments [id number]#1. 00CD:127 [facility] PT - Assessmentson 0 PT - Assessments [id number]#1. 00CD:127 [facility] PT - Consentson 08-31-2020 PT - Consents [id number]#1. 00CD:127 [facility] Pre-Certification Formon Pre-Certification Form [id number]#1.0 0CD:127 [facility] Pre-Certification Form [id number]#1.0 0CD:127 [facility] Consent for Procedure/Surger yon 08-26-2020 Consent for Procedure/Surgery [id number]#1.0 0CD:127 [facility] Ambulatory Clinical Summaryo n 08-25-2020 Ambulatory Clinical Summary {[id number]- 8x-09-ng-1c-61-10-e1-7 d-}CD:[id number] [facility] Patient Educationon 08-25-20 Patient Education [...] an extended amount of time. Only take rvej-pcg-ldvqqgr or prescription medicines for pain, discomfort, or [...] Document Reviewed: 09/07/2009 ExitCare? Patient Information ?2013 [employer]. [facility] Urology Office/Clinic Noteon 08-25-2020 Urology Office/Clinic [...] disease: Mother. Hypertension: Mother and Father. Normal [facility] Comment on above: Result Comment: Elec tronically Signed By: Francie BENSON, Dawna Feldman\.br\Date and Time Signed: 08/25/20 10:06 EDT\.br\Electronically Co-Signed By: Mary Hager\.br\Date and Time Co-Signed: 08/25/20 09:51 EDT Coding Summary.on 08-21-2020 Coding Summary. CODING DATE: 08/21/2020 FINAL [facility] STATUS: PAYOR: Medicaid EAPG DESCRIPTION 0271 [...] CphT Date Saved: 08/21/2020 10:42 am [facility] Consenton 08-21-2020 Consent [id number]#1.0 0CD:127 [facility] Ambulatory Clinical Summaryo n 08-19-2020 Ambulatory Clinical Summary {[id number]-[id number] [id number]-u8-d1-c }CD:[id number] [facility] Ambulatory Clinical Summary {[id number]-[id number]-4f- 72-d7-29-65-60-93-b0-0 d-3c}CD:162300 [facility] Nonvisit Note - PTon 020 Nonvisit Note - PT Chart reviewed for scheduled eval. KK [facility] Patient Educationon 08-19-20 20 Patient [...] urinary (more content not included)... Normal Filippo [facility] 08-[facility]-2020 Urology Phone Visit- Telehealth Chief Complaint [...] only communication with the patient located at [facility] [phone], with no one else. If it is [...] questions/concerns were discussed. Pt. acknowledges understanding. Ordered: [facility] External Ambulatory Referral Urology Procedure Order 2. Dysuria (R30.0: Dysuria) Moderate. Ordered: [facility] External Ambulatory Referral Urology Procedure Order 3. Feeling of incomplete bladder emptying (R39.14: Feeling of incomplete bladder emptying) Pt. does not feel that she is emptying. Ordered: [facility] External Ambulatory Referral Urology Procedure Order 4. Weak urine stream (R39.12: Poor urinary stream) Weak stream w/ moderate hesitancy. Ordered: [facility] External Ambulatory Referral Urology Procedure Order 5. [...] Will order Local anesthesia. ABX sent to [facility] in [place]. Ordered: [facility] External Ambulatory Referral Urology Procedure Order 6. [...] changes. Patient who (more content not included)... [facility] Comment on above: Result Comment: Elec tronically Signed By: Dawna Marmolejo MD\.br\Date and Time Signed: 08/19/20 08:53 EDT\.br\Electronically Co-Signed By: Christy Gill MA\.br\Date and Time Co-Signed: 08/19/20 08:44 EDT Coding Summary.on 08-12-2020 Coding Summary. CODING DATE: 08/12/2020 FINAL [facility] DSC STATUS: Home (Routine DC) PAYOR: [...] Fried Date Saved: 08/12/2020 09:42 am [facility] Formson 08-11-2020 Forms [id number]#1.0 0CD:127 [facility] C Urineon 08-09-2020 Bacteria identified [...] R1: This test was performed at: [facility], [address] [place] [address], [id number], [facility] Comment on above: Performed By: #### 2 [id number] ####Filippo [facility] [address] [place] [address] Ambulatory Clinical Summaryo n 08-07-2020 Ambulatory Clinical Summary {[id number] 29-18-ej-55-97-8e-ba-8 4-a2}CD:[id number] Normal Filippo [facility] Patient Educationon 08-07-20 Patient Education Kegel [...] Document Reviewed: 07/18/2013 ExitCare? Patient Information ?2013 [facility]. Family Medicine Overactive Bladder, Adult The bladder [...] bladder, your (more content not included)... Normal [facility] Urology Office/Clinic Noteon 08-07-2020 Urology Office/Clinic Note [...] information and history for this patient from OUTBOUND SUPERVISOR KWESI King There have been no associated [...] setting of nocturia q2hrs and daytime frequency b1urgux with painful post void bladder sensation of [...] [address] (more content not included)... Normal [facility] Comment on above: Result Comment: Elec tronically Signed By: Dawna Marmolejo MD\.br\Date and Time Signed: 08/07/20 15:54 EDT\.br\Electronically Co-Signed By: Radha Lopez MA.br\Date and Time Co-Signed: 08/07/20 15:44 EDT Vital Signs Date Time Vital Sign Value Performing Clinician Facility 11-12-2024 08:27-0500 Body mass index (BMI) [Ratio] 26.61 kg/m2 Dipti Acevedo DO Work Phone: [facility] 11-12-2024 08:27-0500 Body weight 70.31 kg Dipti Acevedo DO Work Phone: [facility] 11-12-2024 08:27-0500 Diastolic blood pressure 84 mm[Hg] Dipti Acevedo DO Work Phone: [facility] 11-12-2024 08:27-0500 Systolic blood pressure 122 mm[Hg] Dipti Aceveod DO Work Phone: [facility] 10-24-2024 09:20-0500 Diastolic blood pressure 70 mm[Hg] Shannon Gómez DO Work Phone: [facility] 10-24-2024 09:20-0500 Heart rate 68 /min Shannon Gómez DO Work Phone: [facility] 10-24-2024 09:20-0500 Respiratory rate 16 /min Shannon Gómez DO Work Phone: [facility] 10-24-2024 09:20-0500 SaO2% (BldA) [Mass fraction] 100 % Shannon Gómez DO Work Phone: [facility] 10-24-2024 09:20-0500 Systolic blood pressure 109 mm[Hg] Shannon Gómez DO Work Phone: [facility] 10-24-2024 08:30-0500 Body temperature 98 [degF] Shannon Gómez DO Work Phone: [facility] 10-24-2024 08:03-0500 Inhaled oxygen flow rate 8 L/min Shannon Gómez DO Work Phone: [facility] 10-24-2024 06:36-0500 Body height 162.56 cm Shannon Gómez DO Work Phone: [facility] 10-24-2024 06:36-0500 Body weight 69.39 kg Shannon Gómez DO Work Phone: [facility] 10-23-2024 10:43-0500 Body height 162.6 cm Radha Cardenas MD Work Phone: [facility] 10-23-2024 10:43-0500 Body mass index (BMI) [Ratio] 26.26 kg/m2 Radha Cardenas MD Work Phone: [facility] 10-23-2024 10:43-0500 Body weight 69.4 kg Radha Cardenas MD Work Phone: [facility] 10-23-2024 10:43-0500 Diastolic blood pressure 80 mm[Hg] Radha Cardenas MD Work Phone: [facility] 10-23-2024 10:43-0500 Heart rate 68 /min Radha Cardenas MD Work Phone: [facility] 10-23-2024 10:43-0500 SaO2% (BldA) [Mass fraction] 98 % Radha Cardenas MD Work Phone: [facility] 10-23-2024 10:43-0500 Systolic blood pressure 112 mm[Hg] Radha Cardenas MD Work Phone: [facility] 10-15-2024 15:04-0500 Body mass index (BMI) [Ratio] 26.61 kg/m2 Dipti Acevedo DO Work Phone: [facility] 10-15-2024 15:04-0500 Body weight 70.31 kg Dipti Acevedo DO Work Phone: [facility] 10-15-2024 15:04-0500 Diastolic blood pressure 68 mm[Hg] Dipti Acevedo DO Work Phone: [facility] 10-15-2024 15:04-0500 Systolic blood pressure 108 mm[Hg] Dipti Acevedo DO Work Phone: [facility] 10-14-2024 08:26-0500 Body height 162.56 cm GReno Gómez DO Work Phone: [facility] 10-14-2024 08:26-0500 Body mass index (BMI) [Ratio] 26.2 kg/m2 GReno Gómez DO Work Phone: [facility] 10-14-2024 08:26-0500 Body weight 69.39 kg Shannon Gómez DO Work Phone: [facility] 09-26-2024 16:19-0500 Body height 162.6 cm Ronpadmaja King [facility] Work Phone: [facility] 09-26-2024 16:19-0500 Body mass index (BMI) [Ratio] 26.64 kg/m2 Ron King [facility] Work Phone: [facility] 09-26-2024 16:19-0500 Body temperature 97.5 [degF] Ronpadmaja Benedicty [facility] Work Phone: [facility] 09-26-2024 16:19-0500 Body weight 70.4 kg Ronpadmaja King [facility] Work Phone: [facility] 09-26-2024 16:19-0500 Diastolic blood pressure 90 mm[Hg] Ron King [facility]NA Work Phone: [facility] 09-26-2024 16:19-0500 Heart rate 85 /min Ronpadmaja King [facility] Work Phone: [facility] 09-26-2024 16:19-0500 SaO2% (BldA) [Mass fraction] 99 % Ron Fernando [facility] Work Phone: [facility] 09-26-2024 16:19-0500 Systolic blood pressure 142 mm[Hg] Ronpadmaja King [facility] Work Phone: [facility] 09-16-2024 14:56-0500 Body height 162.56 cm [facility] 09-16-2024 14:56-0500 Body mass index (BMI) [Ratio] 25.5 kg/m2 [facility] 09-16-2024 14:56-0500 Body weight 67.58 kg [facility] 09-04-2024 14:30-0400 Body height 162.6 cm Ron Fernando [facility] CNA Work Phone: [facility] 09-04-2024 14:30-0400 Body mass index (BMI) [Ratio] 25.58 kg/m2 Ron [facility] Work Phone: [facility] 09-04-2024 14:30-0400 Body temperature 97.5 [degF] Ron [facility] Work Phone: [facility] 09-04-2024 14:30-0400 Body weight 67.59 kg Ron [facility] Work Phone: [facility] 09-04-2024 14:30-0400 Diastolic blood pressure 76 mm[Hg] Ron Benedicty [facility] Work Phone: [facility] 09-04-2024 14:30-0400 Heart rate 55 /min Ron King [facility] Work Phone: [facility] 09-04-2024 14:30-0400 SaO2% (BldA) [Mass fraction] 99 % Ron [facility] Work Phone: [facility] 09-04-2024 14:30-0400 Systolic blood pressure 110 mm[Hg] Ron Benedicty [facility] Work Phone: [facility] 08-07-2024 09:12-0400 Body height 162.6 cm Radha Cardenas MD Work Phone: [facility] 08-07-2024 09:12-0400 Body mass index (BMI) [Ratio] 26.43 kg/m2 Radha Cardenas MD Work Phone: [facility] 08-07-2024 09:12-0400 Body temperature 97.3 [degF] Radha Cardenas MD Work Phone: [facility] 08-07-2024 09:12-0400 Body weight 69.85 kg Radha Cardenas MD Work Phone: [facility] 08-07-2024 09:12-0400 Diastolic blood pressure 82 mm[Hg] Radha Cardenas MD Work Phone: [facility] 08-07-2024 09:12-0400 Heart rate 68 /min Radha Cardenas MD Work Phone: [facility] 08-07-2024 09:12-0400 SaO2% (BldA) [Mass fraction] 100 % Radha Cardenas MD Work Phone: [facility] 08-07-2024 09:12-0400 Systolic blood pressure 120 mm[Hg] Radha Cardenas MD Work Phone: [facility] 08-01-2024 15:22-0400 Body height 162.6 cm Eliceo Gómez DO Work Phone: [facility] 08-01-2024 15:22-0400 Body mass index (BMI) [Ratio] 25.73 kg/m2 Eliceo Gómez DO Work Phone: [facility] 08-01-2024 15:22-0400 Body temperature 96.8 [degF] Eliceo Gómez DO Work Phone: [facility] 08-01-2024 15:22-0400 Body weight 68 kg Eliceo Gómez DO Work Phone: [facility] 08-01-2024 15:22-0400 Diastolic blood pressure 60 mm[Hg] Eliceo Gómez DO Work Phone: [facility] 08-01-2024 15:22-0400 Heart rate 98 /min Eliceo Gómez DO Work Phone: [facility] 08-01-2024 15:22-0400 SaO2% (BldA) [Mass fraction] 99 % Eliceo Gómez DO Work Phone: [facility] 08-01-2024 15:22-0400 Systolic blood pressure 122 mm[Hg] Eliceo Gómez DO Work Phone: [facility] 07-11-2024 09:44-0400 Body height 162.6 cm Eliceo Gómez DO Work Phone: [facility] 07-11-2024 09:44-0400 Body mass index (BMI) [Ratio] 26.09 kg/m2 Eliceo Gómez DO Work Phone: [facility] 07-11-2024 09:44-0400 Body temperature 97.11 [degF] Eliceo Gómez DO Work Phone: [facility] 07-11-2024 09:44-0400 Body weight 68.95 kg Eliceo Gómez DO Work Phone: [facility] 07-11-2024 09:44-0400 Diastolic blood pressure 64 mm[Hg] Eliceo Gómez DO Work Phone: [facility] 07-11-2024 09:44-0400 Heart rate 86 /min Eliceo Gómez DO Work Phone: [facility] 07-11-2024 09:44-0400 SaO2% (BldA) [Mass fraction] 97 % Eliceo Gómez DO Work Phone: [facility] 07-11-2024 09:44-0400 Systolic blood pressure 108 mm[Hg] Eliceo Gómez DO Work Phone: [facility] 04-12-2024 13:10-0400 Diastolic blood pressure 75 mm[Hg] Milagros Franco MD, PhD Work Phone: [facility] 04-12-2024 13:10-0400 Heart rate 62 /min Milagros Franco MD, PhD Work Phone: [facility] 04-12-2024 13:10-0400 Respiratory rate 20 /min Milagros Franco MD, PhD Work Phone: [facility] 04-12-2024 13:10-0400 SaO2% (BldA) [Mass fraction] 100 % Milagros Franco MD, PhD Work Phone: [facility] 04-12-2024 13:10-0400 Systolic blood pressure 121 mm[Hg] Milagros Franco MD, PhD Work Phone: [facility] 04-12-2024 11:35-0400 Body height 162.6 cm Milagros Franco MD, PhD Work Phone: [facility] 04-12-2024 11:35-0400 Body mass index (BMI) [Ratio] 25.75 kg/m2 Milagros Franco MD, PhD Work Phone: [facility] 04-12-2024 11:35-0400 Body temperature 97.9 [degF] Milagros Franco MD, PhD Work Phone: [facility] 04-12-2024 11:35-0400 Body weight 68.04 kg Milagros Franco MD, PhD Work Phone: [facility] 02-27-2024 09:48-0400 Body height 162.6 cm Flower Payam OUTBOUND SUPERVISOR.[employer] SPECIAL [employer]ENT Work Phone: [facility] 02-27-2024 09:48-0400 Body mass index (BMI) [Ratio] 26.45 kg/m2 Flower Payam OUTBOUND SUPERVISOR.[employer] SPECIAL AGENT Work Phone: [facility] 02-27-2024 09:48-0400 Body weight 69.9 kg Flower Payam OUTBOUND SUPERVISOR.[employer] SPECIAL AGENT Work Phone: [facility] 02-27-2024 09:48-0400 Diastolic blood pressure 93 mm[Hg] Flower Payam OUTBOUND SUPERVISOR.[employer] SPECIAL AGENT Work Phone: [facility] 02-27-2024 09:48-0400 Heart rate 62 /min Flower Payam OUTBOUND SUPERVISOR.[employer] SPECIAL AGENT Work Phone: [facility] 02-27-2024 09:48-0400 Systolic blood pressure 146 mm[Hg] Flower Payam OUTBOUND SUPERVISOR.[employer] SPECIAL AGENT Work Phone: [facility] 01-25-2024 09:05-0400 Body height 162.6 cm [employer] Work Phone: [facility] 01-25-2024 09:05-0400 Body weight 68.04 kg [employer] Work Phone: [facility] 01-25-2024 09:05-0400 Heart rate 84 /min [employer] Work Phone: [facility] 01-25-2024 09:05-0400 Respiratory rate 16 /min [employer] Work Phone: [facility] 01-10-2024 12:40-0500 Body height 162.6 cm Cullen Dawkins MD Work Phone: [facility] 01-10-2024 12:40-0500 Body mass index (BMI) [Ratio] 27.89 kg/m2 Cullen Dawkins MD Work Phone: [facility] 01-10-2024 12:40-0500 Body weight 73.7 kg Cullen Dawkins MD Work Phone: [facility] 12-20-2023 12:21-0500 Body height 162.6 cm [employer] [facility] 12-20-2023 12:21-0500 Body mass index (BMI) [Ratio] 28.38 kg/m2 [facility] 13 [facility] 12-20-2023 12:21-0500 Body temperature 98.2 [degF] [facility] [address] [facility] [employer] [facility] 12-20-2023 12:21-0500 Body weight 75 kg [facility] 13 [facility] 12-20-2023 12:21-0500 Diastolic blood pressure 90 mm[Hg] [facility] 13 [facility] [employer] [facility] 12-20-2023 12:21-0500 Heart rate 72 /min [facility] 13 [facility] 12-20-2023 12:21-0500 Respiratory rate 18 /min [facility] 13 [facility] 12-20-2023 12:21-0500 SaO2% (BldA) [Mass fraction] 96 % [facility] 13 [facility] [employer] [facility] 12-20-2023 12:21-0500 Systolic blood pressure 138 mm[Hg] [facility] 13 [facility] [employer] [facility] 11-23-2023 08:14-0500 Body height 162.56 cm DO GReno Gómez Work Phone: [facility] 11-23-2023 08:14-0500 Body weight 70.3 kg DO G. Parish Kaftan Work Phone: [facility] 08-12-2023 07:08-0400 Diastolic blood pressure 65 mm[Hg] eLx Salmon MD Work Phone: [facility] 08-12-2023 07:08-0400 Heart rate 77 /min Lxe Salmon MD Work Phone: [facility] 08-12-2023 07:08-0400 SaO2% (BldA) [Mass fraction] 98 % Lex Salmon MD Work Phone: [facility] 08-12-2023 07:08-0400 Systolic blood pressure 132 mm[Hg] Lex Salmon MD Work Phone: [facility] 08-12-2023 06:48-0400 Respiratory rate 13 /min Lex Salmon MD Work Phone: [facility] 08-12-2023 00:25-0400 Body height 162.6 cm Lex Salmon MD Work Phone: [facility] 08-12-2023 00:25-0400 Body mass index (BMI) [Ratio] 28.01 kg/m2 Lex Salmon MD Work Phone: [facility] 08-12-2023 00:25-0400 Body temperature 97.59 [degF] Lex Salmon MD Work Phone: [facility] 08-12-2023 00:25-0400 Body weight 74.03 kg Lex Salmon MD Work Phone: [facility] 07-31-2023 14:27-0400 Body height 162.6 cm Nelsy Chávez APRN.[employer] SPECIAL AGENT Work Phone: [facility] 07-31-2023 14:27-0400 Body weight 69.85 kg Nelsy Chávez APRN.[employer] SPECIAL AGENT Work Phone: [facility] 07-31-2023 14:27-0400 Diastolic blood pressure 96 mm[Hg] Nelsy Katya OUTBOUND SUPERVISOR.[employer] SPECIAL AGENT Work Phone: [facility] 07-31-2023 14:27-0400 Heart rate 76 /min Nelsy Wynnegand OUTBOUND SUPERVISOR.[employer] SPECIAL AGENT Work Phone: [facility] 07-31-2023 14:27-0400 Systolic blood pressure 136 mm[Hg] Nelsy Chávez OUTBOUND SUPERVISOR.[employer] SPECIAL AGENT Work Phone: [facility] 06-13-2023 10:37-0400 Body height 162.56 cm Eliceo Asiya Szymanskijerometomasa Work Phone: [facility] [address] DO Work Phone: 06-13-2023 10:37-0400 Body mass index (BMI) [Ratio] 27.46 kg/m2 Eliceo Asiya Szymanskileigha Work Phone: [facility] [address] DO Work Phone: 06-13-2023 10:37-0400 Body surface area Derived from formula 1.78 m2 Eliceo Asiya Szymanskijerometomasa Work Phone: [facility] [address] DO Work Phone: 06-13-2023 10:37-0400 Body weight 72.58 kg Eliceo Gómez Work Phone: [facility] [address] DO Work Phone: 06-13-2023 10:37-0400 Diastolic blood pressure 70 mm[Hg] Eliceo Ellis Stephonjerometomasa Work Phone: [facility] [address] DO Work Phone: 06-13-2023 10:37-0400 Heart rate 70 /min Eliceo Gómez Work Phone: [facility] [address] DO Work Phone: 06-13-2023 10:37-0400 Systolic blood pressure 100 mm[Hg] Eliceo Gómez Work Phone: [facility] [facility] DO Work Phone: 06-13-2023 10:37-0400 11 1 Eliceo Szymanskijerometomasa Work Phone: [facility] [address] DO Work Phone: Comment on above: [id number] TS 06-05-2023 13:23-0400 Diastolic blood pressure 68 mm[Hg] DO Shannon Szymanskijerometomasa Work Phone: [facility] 06-05-2023 13:23-0400 Heart rate 72 /min DO Shannon Szymanskijerometomasa Work Phone: [facility] 06-05-2023 13:23-0400 Respiratory rate 18 /min DO Shannon Szymanskijerometomasa Work Phone: [facility] 06-05-2023 13:23-0400 SaO2% (BldA) [Mass fraction] 97 % DO Shannon Szymanskijerometomasa Work Phone: [facility] 06-05-2023 13:23-0400 Systolic blood pressure 129 mm[Hg] DO Shannon Gómez Work Phone: [facility] 06-05-2023 09:32-0400 Body height 162.56 cm DO Shannon Gómez Work Phone: [facility] 06-05-2023 09:32-0400 Body weight 73.9 kg DO Shannon Szymanskijerometomasa Work Phone: [facility] 06-05-2023 09:31-0400 Body temperature 97.5 [degF] DO Shannon Szymanskijerometomasa Work Phone: [facility] 01-16-2023 13:18-0400 Body height 162.6 cm [facility] 01-16-2023 13:18-0400 Body weight 68.04 kg [facility] 11-21-2022 08:00-0500 Body height 162.6 cm Pac 2 Work Phone: [facility] 11-21-2022 08:00-0500 Body weight 64.86 kg Pac 2 Work Phone: [facility] 10-11-2022 10:08-0500 Body height 162.6 cm Isra Masters DO Work Phone: [facility] 10-11-2022 10:08-0500 Body weight 78.02 kg Isra Masters DO Work Phone: [facility] 10-11-2022 10:08-0500 Diastolic blood pressure 97 mm[Hg] Isra Masters DO Work Phone: [facility] 10-11-2022 10:08-0500 Heart rate 89 /min Isra Masters DO Work Phone: [facility] 10-11-2022 10:08-0500 Systolic blood pressure 141 mm[Hg] Isra Galarzae DO Work Phone: [facility] 10-10-2022 14:30-0500 Body height 162.56 cm Beto Olexa Other [employer] [facility] [employer] Other 10-10-2022 14:30-0500 Body mass index (BMI) [Ratio] 28.66 kg/m2 Beto Olexa Other [employer] Other 10-10-2022 14:30-0500 Body weight 75.75 kg Beto Olexa Other [employer] Other 07-26-2022 11:13-0400 Body height 162.6 cm Mary Obrien MD Work Phone: [facility] 07-26-2022 11:13-0400 Body temperature 97.5 [degF] Mary Obrien MD Work Phone: [facility] 07-26-2022 11:13-0400 Body weight 77.56 kg Mary Obrien MD Work Phone: [facility] 07-26-2022 11:13-0400 Diastolic blood pressure 83 mm[Hg] Mary Obrien MD Work Phone: [facility] 07-26-2022 11:13-0400 Heart rate 95 /min Mary Obrien MD Work Phone: [facility] 07-26-2022 11:13-0400 SaO2% (BldA) [Mass fraction] 97 % Mary Obrien MD Work Phone: [facility] 07-26-2022 11:13-0400 Systolic blood pressure 110 mm[Hg] Mary Obrien MD Work Phone: [facility] 05-26-2022 11:45-0400 Body height 162.56 cm Beto Pradeeptonia Other [employer] Other 05-26-2022 11:45-0400 Body mass index (BMI) [Ratio] 29.18 kg/m2 Beto Snyder Other [employer] Other 05-26-2022 11:45-0400 Body weight 77.11 kg Beto Pradeeptonia Other [employer] Other 05-12-2022 09:06-0400 Diastolic blood pressure 80 mm[Hg] Eliceo Gómez Work Phone: [facility] DO Work Phone: 05-12-2022 09:06-0400 Systolic blood pressure 126 mm[Hg] Eliceo Gómez Work Phone: [facility] [facility] DO Work Phone: 05-12-2022 08:57-0400 Body height 162.56 cm Eliceo Gómez Work Phone: [facility] [facility] DO Work Phone: 05-12-2022 08:57-0400 Body mass index (BMI) [Ratio] 29.87 kg/m2 Eliceo Gómez Work Phone: [facility] [facility] DO Work Phone: 05-12-2022 08:57-0400 Body surface area Derived from formula 1.84 m2 Eliceo Gómez Work Phone: [facility] [facility] DO Work Phone: 05-12-2022 08:57-0400 Body weight 78.93 kg Eliceo Gómez Work Phone: [facility] [facility] DO Work Phone: 05-12-2022 08:57-0400 Diastolic blood pressure 80 mm[Hg] Eliceo Gómez Work Phone: [facility] DO Work Phone: 05-12-2022 08:57-0400 Heart rate 68 /min Eliceo Gómez Work Phone: [facility] [facility] DO Work Phone: 05-12-2022 08:57-0400 Systolic blood pressure 130 mm[Hg] Eliceo Gómez Work Phone: [facility] DO Work Phone: 05-10-2022 12:30-0400 Body height 162.56 cm Allison Lyla Other [employer] Other 05-10-2022 12:30-0400 Body mass index (BMI) [Ratio] 29.18 kg/m2 Allison Arita Other [employer] Other 05-10-2022 12:30-0400 Body temperature 97.3 [degF] Allison Arita Other [employer] Other 05-10-2022 12:30-0400 Body weight 77.11 kg Allison Arita Other [employer] Other 05-10-2022 12:30-0400 Respiratory rate 18 /min Allison Arita Other [employer] Other 05-10-2022 12:30-0400 SaO2% (BldA) [Mass fraction] 98 % Allison Arita Other [employer] Other 04-22-2022 12:04-0400 Body height 162.6 cm Jessi Sheets OUTBOUND SUPERVISOR.[employer] SPECIAL AGENT Work Phone: [facility] 04-22-2022 12:04-0400 Body weight 77.56 kg Jessi Sheets OUTBOUND SUPERVISOR.[employer] SPECIAL AGENT Work Phone: [facility] 04-22-2022 12:04-0400 Diastolic blood pressure 68 mm[Hg] Jessi Sheets OUTBOUND SUPERVISOR.[employer] SPECIAL AGENT Work Phone: [facility] 04-22-2022 12:04-0400 Heart rate 76 /min Jessi Sheets OUTBOUND SUPERVISOR.[employer] SPECIAL AGENT Work Phone: [facility] 04-22-2022 12:04-0400 SaO2% (BldA) [Mass fraction] 98 % Jessi Sheets OUTBOUND SUPERVISOR.[employer] SPECIAL AGENT Work Phone: [facility] 04-22-2022 12:04-0400 Systolic blood pressure 104 mm[Hg] Jessi Sheets OUTBOUND SUPERVISOR.[employer] SPECIAL AGENT Work Phone: [facility] 03-15-2022 16:30-0400 Body height 162.56 cm Beto Snyder Other [employer] Other 03-15-2022 16:30-0400 Body mass index (BMI) [Ratio] 30.55 kg/m2 Beto Snyder Other [employer] Other 03-15-2022 16:30-0400 Body weight 80.74 kg Beto Snyder Other [employer] Other 03-15-2022 08:36-0400 Body height 162.6 cm Isra Masters DO Work Phone: [facility] 03-15-2022 08:36-0400 Body weight 83.01 kg Isra Masters DO Work Phone: [facility] 03-15-2022 08:36-0400 Diastolic blood pressure 87 mm[Hg] Isra Masters DO Work Phone: [facility] 03-15-2022 08:36-0400 Heart rate 85 /min Isra Masters DO Work Phone: [facility] 03-15-2022 08:36-0400 SaO2% (BldA) [Mass fraction] 100 % Isra Masters DO Work Phone: [facility] 03-15-2022 08:36-0400 Systolic blood pressure 133 mm[Hg] Isra Masters DO Work Phone: [facility] 03-14-2022 10:23-0400 Body height 162.6 cm [employer] Work Phone: [facility] 03-14-2022 10:23-0400 Body temperature 97.2 [degF] [employer]acc 4 Work Phone: [facility] 03-14-2022 10:23-0400 Body weight 83.01 kg Pacc 4 Work Phone: [facility] 03-14-2022 10:23-0400 Diastolic blood pressure 76 mm[Hg] Pacc 4 Work Phone: [facility] 03-14-2022 10:23-0400 Heart rate 74 /min Pacc 4 Work Phone: [facility] 03-14-2022 10:23-0400 Respiratory rate 16 /min [employer]acc 4 Work Phone: [facility] 03-14-2022 10:23-0400 SaO2% (BldA) [Mass fraction] 98 % [employer] Work Phone: [facility] 03-14-2022 10:23-0400 Systolic blood pressure 114 mm[Hg] Pacc 4 Work Phone: [facility] 02-18-2022 09:43-0400 Body height 162.6 cm Nelsy Chávez OUTBOUND SUPERVISOR.[employer] SPECIAL AGENT Work Phone: [facility] 02-18-2022 09:43-0400 Body weight 80.29 kg Nelsy Chávez OUTBOUND SUPERVISOR.[employer] SPECIAL AGENT Work Phone: [facility] 02-18-2022 09:43-0400 Diastolic blood pressure 70 mm[Hg] Nelsy Chávez OUTBOUND SUPERVISOR.[employer] SPECIAL AGENT Work Phone: [facility] 02-18-2022 09:43-0400 Systolic blood pressure 110 mm[Hg] Nelsy Chávez OUTBOUND SUPERVISOR.[employer] SPECIAL AGENT Work Phone: [facility] 02-08-2022 14:52-0400 Body height 162.6 cm Mary Obrien MD Work Phone: [facility] 02-08-2022 14:52-0400 Body weight 83.01 kg Mary Obrien MD Work Phone: [facility] 02-08-2022 14:52-0400 Diastolic blood pressure 76 mm[Hg] Mary Obrien MD Work Phone: [facility] 02-08-2022 14:52-0400 Heart rate 79 /min Mary Obrien MD Work Phone: [facility] 02-08-2022 14:52-0400 SaO2% (BldA) [Mass fraction] 97 % Mary Obrien MD Work Phone: [facility] 02-08-2022 14:52-0400 Systolic blood pressure 113 mm[Hg] Mary Obrien MD Work Phone: [facility] 02-08-2022 11:19-0400 Body weight 83.01 kg Magali Mitchell OUTBOUND SUPERVISOR.[employer] SPECIAL AGENT Work Phone: [facility] 02-08-2022 11:19-0400 Diastolic blood pressure 76 mm[Hg] Magali Mitchell OUTBOUND SUPERVISOR.[employer] SPECIAL AGENT Work Phone: [facility] 02-08-2022 11:19-0400 Heart rate 74 /min Magali Mitchell OUTBOUND SUPERVISOR.[employer] SPECIAL AGENT Work Phone: [facility] 02-08-2022 11:19-0400 Systolic blood pressure 113 mm[Hg] Magali Mitchell OUTBOUND SUPERVISOR.[employer] SPECIAL AGENT Work Phone: [facility] 10-20-2021 09:45-0500 Body height 162.56 cm Beto Snyder Other [employer] Other 10-20-2021 09:45-0500 Body mass index (BMI) [Ratio] 31.41 kg/m2 Beto Pradeeper Other [employer] Other 10-20-2021 09:45-0500 Body weight 83.01 kg Beto Snyder Other [employer] Other 08-19-2021 17:10-0400 Body height 162.56 cm Erica Vashti Other [employer] Other 08-19-2021 17:10-0400 Body mass index (BMI) [Ratio] 31.24 kg/m2 Erica Vashti Other [employer] Other 08-19-2021 17:10-0400 Body temperature 97.3 [degF] Erica Vashti Other [employer] Other 08-19-2021 17:10-0400 Body weight 82.56 kg Erica Vashti Other [employer] Other 08-19-2021 17:10-0400 Diastolic blood pressure 82 mm[Hg] Erica Kingston Other [employer] Other 08-19-2021 17:10-0400 Respiratory rate 18 /min Erica Kingston Other [employer] Other 08-19-2021 17:10-0400 SaO2% (BldA) [Mass fraction] 98 % Erica Kingston Other [employer] Other 08-19-2021 17:10-0400 Systolic blood pressure 126 mm[Hg] Erica Kingston Other [employer] Other 08-13-2021 10:15-0400 Body height 162.56 cm Tita Ginty Other [employer] Other 08-13-2021 10:15-0400 Body mass index (BMI) [Ratio] 30.89 kg/m2 Tita Ginty Other [employer] Other 08-13-2021 10:15-0400 Body temperature 6 [degF] Tita Ginty Other [employer] Other 08-13-2021 10:15-0400 Body weight 81.65 kg Tita Ginty Other [employer] Other 08-13-2021 10:15-0400 SaO2% (BldA) [Mass fraction] 99 % Tita Ginty Other [employer] Other 07-28-2021 09:30-0400 Body height 162.56 cm Beto Snyder Other [employer] Other 07-28-2021 09:30-0400 Body mass index (BMI) [Ratio] 30.89 kg/m2 Beto Snyder Other [employer] Other 07-28-2021 09:30-0400 Body weight 81.65 kg Beto Snyder Other [employer] Other Encounters Encounter Date Encounter Type Care Provider Facility Start: 03-17-2025 End: 03-17-2025 ambulatory Ace Ahumada MD Facility:[facility] Start: 02-25-2025 End: 02-25-2025 Patient encounter procedure Shannon Gómez DO Work Phone: [facility] [address] Work Phone: Start: 02-25-2025 End: 02-25-2025 ambulatory Shannon Gómez DO Work Phone: [facility] Work Phone: Start: 02-24-2025 End: 03-10-2025 Telephone encounter Dipti Acevedo DO Work Phone: [facility] Start: 02-17-2025 End: 02-17-2025 Patient encounter procedure Shannon Gómez DO Work Phone: [facility] [address] Work Phone: Start: 02-17-2025 End: 02-17-2025 ambulatory Shannon Gómez DO Work Phone: [facility] Work Phone: Start: 01-25-2025 End: 01-25-2025 Orders Only Pauline [...] encounter procedure Shannon Gómez DO Work Phone: [facility] [address] Work Phone: Start: 12-16-2024 End: 12-16-2024 ambulatory Shannon Gómez DO Work Phone: [facility] Work Phone: Start: 12-11-2024 End: 12-11-[address] [place] [address] Start: 12-10-2024 End: 12-11-2024 Refill Demi Machado [facility] Comment on above: Other migraine witho ut status migrainosus, not intractable Start: 11-26-2024 End: 11-26-2024 Refill Eliceo Szymanskijerometomasa DO Work Phone: [facility] Comment on above: Restless legs syndro me Start: 11-20-2024 End: 11-20-2024 ambulatory Shannon Gómez DO Work Phone: [facility] Work Phone: Start: 11-20-2024 End: 11-20-2024 Patient encounter procedure Shannon Gómez DO Work Phone: [facility] Work Phone: Start: 11-19-2024 End: 11-19-2024 Bamboo flowsheet Nelsy A Pradeeper OUTBOUND SUPERVISOR-[employer] SPECIAL AGENT Work Phone: [facility] Start: 11-19-2024 End: 11-19-2024 Bamboo flowsheet Nelsy A Pradeeper OUTBOUND SUPERVISOR-[employer] SPECIAL AGENT Work Phone: [facility] Start: 11-19-2024 End: 11-19-2024 Office outpatient visit 15 minutes Nelsy Snyder OUTBOUND SUPERVISOR-[employer] SPECIAL AGENT Work Phone: [facility] Comment on above: Seborrheic keratosis ; Lentigines; Capillary angioma Start: 11-19-2024 End: 11-19-2024 ambulatory NELSY SNYDER Not Available Start: 11-14-2024 End: 11-14-2024 Patient encounter procedure Shannon Gómez DO Work Phone: [facility] [place] Work Phone: Start: 11-14-2024 End: 11-14-2024 ambulatory Shannon Gómez DO Work Phone: [facility] Work Phone: Start: 11-12-2024 End: 11-12-2024 Postop follow up visit related to original px Dipti Acevedo DO Work Phone: [facility] Comment on above: Aftercare following surgery Start: 11-12-2024 End: 11-12-2024 ambulatory DIPTI ACEVEDO Not Available Start: 11-11-2024 End: 11-11-2024 ambulatory Ace Ahumada MD Facility: [place] Start: 11-04-2024 End: 12-28-2024 ambulatory Shannon GÓMEZ Facility:[facility] Start: 10-28-2024 End: 10-28-2024 Postop follow up visit related to original px Dipti Acevedo DO Work Phone: [facility] Comment on above: Aftercare following surgery Start: 10-28-2024 End: 10-28-2024 ambulatory DIPTI ACEVEDO Not Available Start: 10-28-2024 ambulatory Shannon [facility]Z [facility] Start: 10-24-2024 End: 10-24-2024 Admission to same day surgery center Shannon Gómez DO Work Phone: [facility] Start: 10-24-2024 End: 10-24-2024 ambulatory Shannon Gómez Facility:[facility] Start: 10-23-2024 End: 10-23-2024 Office outpatient visit 40 minutes Radha Cardenas MD Work Phone: Gastroenterology and Hepatology [facility] Comment on above: Chronic diarrhea (Pr imary Dx); Chronic abdominal pain; Bloating; Inadequate oral intake; River grade D esophagitis; Gastroparesis Start: 10-23-2024 ambulatory Shannon GÓMEZ Facili ty:[facility] Start: 10-15-2024 End: 10-15-2024 Office outpatient visit 25 minutes Dipti Acevedo DO Work Phone: [facility] Comment on above: PCB (post coital ble eding); Granulation tissue; Hymen abnormality Start: 10-15-2024 End: 10-15-2024 ambulatory DIPTI ACEVEDO Not Available Start: 10-14-2024 End: 10-14-2024 Patient encounter procedure Shannon Gómez DO Work Phone: [facility] Physician [facility] Neurosurgery Work Phone: Start: 10-10-2024 End: 10-10-2024 Patient encounter procedure Shannon Gómez DO Work Phone: [facility]MRI [address] Closed Work Phone: Start: 10-10-2024 End: 10-10-2024 ambulatory Shannon Gómez Facility:[facility] Start: 10-09-2024 End: 10-09-2024 ambulatory Shannon Gómez Facility:[facility] Start: 10-09-2024 Non-patient / Non-visit Shannon Gómez DO Work Phone: [facility] Work Phone: Start: 09-27-2024 End: 09-27-2024 Office outpatient visit 15 minutes Dipti Acevedo DO Work Phone: [facility] Comment on above: PCB (post coital ble eding) (Primary Dx); Granulation tissue Start: 09-27-2024 End: 09-27-2024 ambulatory DIPTI ACEVEDO Not Available Start: 09-26-2024 End: 09-26-2024 Office outpatient visit 15 minutes Ron King [facility] Work Phone: [facility] Comment on above: Degenerative disc di sease, cervical (Primary Dx) Start: 09-26-2024 End: 09-27-2024 ambulatory RON KING Not Available Start: 09-24-2024 End: 09-24-2024 Office outpatient visit 15 minutes Dipti Acevedo DO Work Phone: [facility] Comment on above: Granulation tissue; Hymen abnormality Start: 09-24-2024 End: 09-24-2024 ambulatory DIPTI ACEVEDO Not Available Start: 09-16-2024 End: 09-16-2024 ambulatory [facility] Work Phone: Start: 09-16-2024 End: 09-16-2024 Patient encounter procedure [facility] Neurosurgery Work Phone: Start: 09-04-2024 End: 09-04-2024 Office outpatient visit 15 minutes Ron King [facility] Work Phone: [facility] Comment on above: Anxiety (Primary Dx) Urinary frequency; Urinary urgency; Burning with urination; Erythema; Chronic vulvitis; Night sweats Start: 09-04-2024 End: 09-04-2024 ambulatory RON KING Not Available Start: 08-27-2024 End: 08-27-2024 ambulatory ELICEO GÓMEZ Not Available Start: 08-26-2024 ambulatory NA LI Facility:[facility] Start: 08-07-2024 End: 08-07-2024 Office outpatient visit 40 minutes Radha Cardenas MD Work Phone: Gastroenterology and Hepatology [facility] Comment on above: Chronic abdominal pa in (Primary Dx); Avoidant-restrictive food intake disorder (ARFID); Bloating; Gastroparesis Start: 08-07-2024 ambulatory NA LI Facility:[facility] Start: 08-05-2024 End: 08-05-2024 ambulatory Ace Ahumada MD Facility:[facility] Start: 08-01-2024 End: 08-01-2024 Office outpatient visit 15 minutes Eliceo Gómez DO Work Phone: [facility] 230 Comment on above: Oral candidiasis (Pr imary Dx); Tongue pain Start: 08-01-2024 End: 08-01-2024 ambulatory ELICEO SZYMANSKIFTAN Not Available Start: 07-26-2024 End: 07-26-2024 ambulatory [facility] Start: 07-22-2024 End: 07-22-2024 ambulatory Ace Ahumada MD Facility:[facility] Start: 07-15-2024 End: 07-15-2024 ambulatory ELICEO NGAN Not Available Start: 07-11-2024 End: 07-11-2024 Bamboo flowsheet Eliceo Gómez DO Work Phone: [facility] Start: 07-11-2024 End: 07-11-2024 Bamboo flowsheet Eliceo Gómez DO Work Phone: [facility] Start: 07-11-2024 End: 07-11-2024 ambulatory ELICEO GÓMEZ Not Available Start: 07-11-2024 End: 07-11-2024 Office outpatient visit 15 minutes Eliceo Asiya Gómez DO Work Phone: [facility] Comment on above: Soft tissue mass (Pr imary Dx); Gastro-esophageal reflux disease without esophagitis; Gastroparesis; Mild intermittent asthma, unspecified whether complicated ([facility] Start: 07-01-2024 End: 07-01-2024 ambulatory Ace Ahumada MD Facility:[facility] Start: 06-27-2024 End: 06-27-2024 Bamboo flowsheet Sidney Amezquita DPM Work Phone: [facility] Start: 06-27-2024 End: 06-27-2024 Austinboo flowsheet Sidney Amezquita DPM Work Phone: [facility] Start: 06-27-2024 End: 06-27-2024 Patient encounter procedure Sidney Amezquita DPM Work Phone: [facility] Comment on above: Peroneal tendinitis of right lower extremity (Primary Dx); Bilateral foot pain; Exostosis of bone of foot Start: 06-27-2024 End: 06-27-2024 ambulatory SIDNEY AMEZQUITA Not Available Start: 06-17-2024 End: 06-17-2024 ambulatory Ace Ahumada MD Facility: [facility] Start: 06-14-2024 End: 06-14-2024 ambulatory CARMEN CUEVAI Not Available Start: 06-12-2024 Refill Isra riso DO Work Phone: Gastroenterology Comment on above: Refill Request Start: 06-12-2024 End: 06-12-2024 ambulatory DIPTI ACEVEDO Not Available Start: 06-12-2024 End: 06-12-2024 ambulatory RON KING Not Available Start: 06-03-2024 End: 06-03-2024 ambulatory CARMEN CUEVAI Not Available Start: 05-27-2024 End: 05-27-2024 ambulatory DO Shannon Gómez Work Phone: [facility] Work Phone: Start: 05-27-2024 End: 05-27-2024 Departed Referred DO Shannon Gómez Work Phone: [facility]LAB [facility] Start: 05-20-2024 End: 05-20-2024 ambulatory DIPTI ACEVEDO Not Available Start: 05-14-2024 End: 05-15-2024 Refill Jose-Ramya Thomas Chavira [facility] Comment on above: Other migraine witho ut status migrainosus, not intractable (Primary Dx) Start: 05-13-2024 End: 05-13-2024 ambulatory Ace Ahumada MD Facility:[facility] Start: 05-06-2024 End: 05-06-2024 ambulatory NELSY SNYDER Not Available Start: 05-02-2024 End: 05-02-2024 ambulatory ELICEO GÓMEZ Not Available Start: 04-30-2024 End: 04-30-2024 Patient encounter procedure DO Shannon Szymanskijerometomasa Work Phone: [facility] [address] Work Phone: Start: 04-30-2024 End: 04-30-2024 ambulatory DO Shannon Gómez Work Phone: [facility] Work Phone: Start: 04-28-2024 End: 04-29-2024 ambulatory [facility] Start: 04-28-2024 End: 04-28-2024 ambulatory [facility] Start: 04-22-2024 End: 04-22-2024 ambulatory Ace Ahumada MD Facility:[facility] Start: 04-15-2024 End: 04-15-2024 ambulatory SIDNEY AMEZQUITA Not Available Start: 04-12-2024 ambulatory NA LI Facility:[facility] Start: 04-12-2024 End: 04-12-2024 Subsequent hospital visit by physician Milagros Franco MD, PhD Work Phone: [facility] Comment on above: Arrived Start: 04-03-2024 End: 04-03-2024 ambulatory [facility] Start: 03-26-2024 End: 03-26-2024 ambulatory JES MARTINEZ Not Available Start: 03-14-2024 End: 03-14-2024 ambulatory RON KING Not Available Start: 03-12-2024 ambulatory Flower Daniele on OUTBOUND SUPERVISOR.FBI SPECIAL AGENT Work Phone: URO/Gynecology Comment on above: Estradiol vaginal cr eam Start: 03-08-2024 ambulatory SELF SELF Facility:[facility] Start: 03-06-2024 ambulatory Shannon Ramos ty:[facility] Start: 03-06-2024 ambulatory RADHA CARDENAS Facilit y:[facility] Start: 03-06-2024 ambulatory Shannon Ramos ty:[facility] Start: 02-27-2024 End: 02-27-2024 ambulatory FLOWER LOPEZ Facility:[facility] Start: 02-27-2024 End: 02-27-2024 Patient encounter procedure Flower Lopez OUTBOUND SUPERVISOR.FBI SPECIAL AGENT Work Phone: URO/Gynecology Comment on above: Post-operative state (Primary Dx); Vaginal burning Start: 02-11-2024 End: 02-11-2024 ambulatory ELICEO GÓMEZ JR Facility:[facility] Start: 02-11-2024 End: 02-11-2024 ambulatory Lissa Doyle OUTBOUND SUPERVISOR.FBI SPECIAL AGENT Work Phone: Telemedicine Comment on above: Procedure and treatm ent not carried out for other reasons (Primary Dx) Start: 02-11-2024 End: 02-11-2024 Telemedicine consultation with patient Lissa Doyle OUTBOUND SUPERVISOR.FBI SPECIAL AGENT Work Phone: [facility] Start: 02-09-2024 End: 02-09-2024 ambulatory Pam Wang MD Work Phone: URO/Gynecology Comment on above: Yeast infection Start: 02-07-2024 End: 02-07-2024 ambulatory [facility] Start: 01-27-2024 Telephone encounter Radha florez MD Work Phone: Gynecology Start: 01-26-2024 End: 01-26-2024 ambulatory ELICEO SZYMANSKILEIGHA JENKINS Facility:[facility] Start: 01-25-2024 End: 01-25-2024 Telemedicine consultation with patient Nurse Community Association Manager Work Phone: [facility] Start: 01-25-2024 Encounter for other preprocedural examination PAM WANG [facility] Start: 01-25-2024 End: 01-25-2024 Admission to [facility] Work Phone: [facility] Start: 01-25-2024 End: 01-25-2024 ambulatory Nurse Community Association Manager Work Phone: Pre Anesthesia Comment on above: Pre-op examination ( Primary Dx); Obesity (BMI 30.0-34.9); Mild persistent asthma without complication; CHUCKIE (obstructive sleep apnea); Primary hypertension; Gastroparesis; Gastroesophageal reflux disease, unspecified whether esophagitis present Educational circumst ances (Primary Dx) Start: 01-25-2024 End: 01-25-2024 Preprocedural examination done [facility] Work Phone: [facility] Work Phone: Start: 01-23-2024 End: 01-23-2024 ambulatory ELICEO GÓMEZ Not Available Start: 01-10-2024 End: 01-10-2024 ambulatory [facility] Start: 01-10-2024 End: 01-10-2024 Postop follow up visit related to original px Cullen Dawkins MD Work Phone: [facility] Comment on above: CHUCKIE (obstructive sle ep apnea) (Primary Dx) Start: 01-03-2024 End: 01-03-2024 Evaluation and management of inpatient [facility] As[facility] Start: 01-02-2024 End: 01-03-2024 Evaluation and management of inpatient [facility] Start: 01-02-2024 End: 01-02-2024 Evaluation and management of inpatient [facility] Start: 12-27-2023 Telephone encounter Cullen glover MD Work Phone: [facility] Start: 12-25-2023 ambulatory Pam rios MD Work Phone: URO/Gynecology Comment on above: Having another stimu lator besides bladder Start: 12-25-2023 Telephone encounter Pam simon MD Work Phone: Gynecology Comment on above: Question Start: 12-20-2023 End: 12-20-2023 ambulatory [facility] Start: 12-20-2023 Encounter for other preprocedural examination [facility] Start: 12-20-2023 End: 12-20-2023 Patient encounter procedure [facility] Pat Provider 13 [facility] Jorge L [facility] [address] Comment on above: Pre-op testing (Prim tomer Dx) Start: 12-20-2023 End: 12-20-2023 Patient encounter status [facility] Start: 11-27-2023 End: 11-27-2023 ambulatory Beto Pradeeptonia Other [facility] Other Start: 11-27-2023 Telephone encounter [facility] Start: 11-23-2023 End: 11-23-2023 ambulatory DO Shannon Gómez Work Phone: [facility] Work Phone: Start: 11-23-2023 End: 11-23-2023 Patient encounter procedure DO Shannon Gómez Work Phone: [facility] Work Phone: Start: 11-21-2023 End: 11-21-2023 ambulatory ELICEO GÓMEZ JR Facility:[facility] Start: 11-16-2023 End: 11-16-2023 ambulatory Beto Snyder Other [facility] Other Start: 11-16-2023 Telephone encounter [facility] Start: 11-08-2023 Telephone encounter Emily Zamora [facility] Start: 11-03-2023 Orders Only Pauline Christensen MD Work Phone: [facility] Start: 10-26-2023 End: 10-26-2023 ambulatory Beto Snyder Other [facility] Other Start: 10-26-2023 Telephone encounter [facility] Start: 10-23-2023 End: 10-23-2023 ambulatory PAULINE CHRISTENSEN [facility] Amb[facility] Start: 10-10-2023 End: 10-10-2023 ambulatory ELICEO GÓMEZ JR Facility:[facility] Start: 10-06-2023 End: 10-06-2023 ambulatory Beto Snyder Other [facility] Other Start: 10-06-2023 Telephone encounter [facility] Start: 09-27-2023 End: 09-27-2023 ambulatory Pam Wang MD Work Phone: Urogynecology Comment on above: Worsening Start: 09-27-2023 Refill Dorisfarheen Arias OUTBOUND SUPERVISOR.FBI SPECIAL AGENT Work Phone (unformatted): [phone] Urogynecology Comment on above: Med Change Request Start: 09-11-2023 End: 09-11-2023 ambulatory PAM WANG Facility:[facility] Start: 08-12-2023 End: 08-12-2023 Emergency department patient visit LEX SALMON [facility] Start: 08-12-2023 End: 08-12-2023 Emergency department patient visit Lex Salmon MD Work Phone: [facility] Comment on above: Upper abdominal pain (Primary Dx) Start: 08-09-2023 ambulatory Mary Obrien MD Work Phone: Colorectal Surgery Comment on above: Response Start: 08-07-2023 End: 08-07-2023 ambulatory Mary Obrien MD Work Phone: Colorectal Surgery Comment on above: Colon Start: 08-01-[address] Eliceo Gómez Jr Facility: Start: 07-31-2023 End: 07-31-2023 ambulatory ELICEO GÓMEZ JR Facility:[facility] Start: 07-31-2023 End: 07-31-2023 Patient encounter procedure Nelsy Wynnegand OUTBOUND SUPERVISOR.FBI SPECIAL AGENT Work Phone: URO/Gynecology Comment on above: Incomplete bladder e mptying (Primary Dx); Constipation, unspecified constipation type; Urinary urgency; Urinary frequency; Nocturia Start: 07-17-2023 (Procedure) Win Snyder [facility] Start: 07-17-2023 End: 07-17-2023 ambulatory Bteo Snyder Other [facility] Other Start: 07-12-2023 End: 07-12-2023 ambulatory Beto Snyder Other [employer] Other Start: 07-12-2023 Telephone encounter [facility] Start: 06-13-2023 Office consultation new/estab patient 60 min Eliceo Gómez Work Phone: [facility] [address] DO Work Phone: Start: 06-13-[address] Dipti Anaya Facility: Start: 06-07-[address] Dipti Anaya Facility:[id number] Start: 06-05-2023 End: 06-05-2023 Emergency department patient visit DO Shannon Gómez Work Phone: [facility]Emergency [facility] Work Phone: Start: 05-28-2023 ambulatory Pam rios MD Work Phone: URO/Gynecology Comment on above: Problems with urinat ing Start: 04-26-2023 End: 04-26-2023 ambulatory Beto Snyder Other [employer] Other Start: 04-26-2023 Office outpatient vi sit 25 minutes Beto Snyder [facility] [place] Start: 04-11-2023 Refill Isra S Clin e DO Work Phone: Gastroenterology Comment on above: Refill Request Start: 04-04-2023 End: 04-05-[address] Isatu GÓMEZ Facility:[facility] Start: 03-19-2023 ambulatory Isra S Clin e DO Work Phone: Gastroenterology Comment on above: Stool sample results Start: 03-17-2023 End: 03-17-2023 ambulatory DO Shannon Gómez Work Phone: [facility] Work Phone: Start: 03-17-2023 End: 03-17-2023 Discharged Recurring DO Shannon Gómez Work Phone: [facility]-Physical Therapy [place] Work Phone: Start: 03-15-2023 Orders Only Isra rios DO [...] appointment) Start: 01-16-2023 End: 01-16-2023 [facility]mission [facility] Start: 01-16-2023 End: 01-16-2023 ambulatory [facility] Pre Anesthesia Comment on above: [...] with patient Winston Hannah DO Work Phone: [facility] Start: 12-28-2022 ambulatory Yoni Tuttle MD [...] with patient Winston Hannah DO Work Phone: [facility] Start: 12-21-2022 End: 12-22-2022 ambulatory SADE Keys [facility] Facility: Start: 12-15-2022 End: 12-15-2022 Manual pelvic examination Mary Obrien MD Work Phone: Colorectal Surgery Comment on above: Colonic inertia (Phoebe unique Dx); Pelvic floor dysfunction; Nausea; Gastroparesis Start: 12-15-2022 End: 12-15-2022 Telemedicine consultation with patient Mary Obrien MD Work Phone: [facility] Start: 12-14-2022 ambulatory Yoni Tuttle MD Work Phone: NEUROLOGY Comment on above: Right number? Start: 12-09-2022 ambulatory Mary Obrien MD Work Phone: Colorectal Surgery Comment on above: Colon Start: 12-09-2022 Telephone encounter Mary brewer MD Work Phone: Colorectal Surgery Comment on above: Patient Question Start: 12-08-2022 Telephone encounter Isra Thorpe Masters DO Work Phone: Gastroenterology Comment on above: Results ([place] py results; patient questions) Start: 12-07-2022 ambulatory Winstonaureliano chand DO Work Phone: General Surgery Comment on above: Carafate Start: 12-06-2022 ambulatory Isra S Clin e DO Work Phone: Gastroenterology Comment on above: Results Start: 12-05-2022 ambulatory Winston Zoya chand DO Work Phone: [facility] Start: 12-02-2022 ambulatory Isra S Clin e DO Work Phone: [facility] Start: 12-02-2022 Telephone encounter Yoni Tuttle MD Work Phone: Neurology Comment on above: Returning Nurse Call Start: 12-01-2022 End: 12-02-2022 ambulatory NIECY DURON Facility:[facility] Start: 11-30-2022 End: 11-30-2022 ambulatory Isra S Masters DO Work Phone: Gastroenterology Comment on above: Chronic idiopathic c onstipation (Primary Dx); Nausea Start: 11-30-2022 End: 11-30-2022 Telemedicine consultation with patient Isra Thorpe Masters DO Work Phone: [facility] Start: 11-24-2022 ambulatory Isra S Clin e DO Work Phone: Gastroenterology Comment on above: SMART PILL RESULTS Approval for upcomin g pap titration test Start: 11-24-2022 Telephone encounter Yoni Tuttle MD Work Phone: Neurology Comment on above: Is PA Needed for PAP Titration Start: 11-22-2022 Telephone encounter Isra Ila Galarzae DO Work Phone: Gastroenterology Comment on above: Patient Update Start: 11-21-2022 End: 11-21-2022 ambulatory Yoni Tuttle MD Work Phone: Pre Anesthesia Comment on above: Pre-op exam (Primary Dx); Primary hypertension; Mild persistent asthma without complication; Gastroparesis; CHUCKIE (obstructive sleep apnea) Orders Start: 11-21-2022 End: 11-21-2022 Admission to establishment [facility] Start: 11-21-2022 End: 11-21-2022 Preprocedural examination done [facility] 2 Work Phone: Pre Anesthesia Start: 11-17-2022 ambulatory Annmarie Gillespie RN Gastroe nterology Start: 11-17-2022 Patient encounter procedure Annmarie Gillespie RN [facility] Start: 11-17-2022 End: 11-17-2022 Subsequent hospital visit by physician Capsule Work Phone: Gastroenterology Start: 11-16-2022 ambulatory Yoni Tuttle MD Work Phone: NEUROLOGY Comment on above: The delay Start: 11-15-2022 ambulatory Yoni Tuttle MD Work Phone: NEUROLOGY Comment on above: Labs Start: 11-14-2022 End: 11-15-2022 ambulatory NIECY DURON Facility:[facility] Start: 11-10-2022 Telephone encounter Annmarie Gillespie RNis/it project manager Comment on above: Preparations For Pro cedures [...] Encounter for preprocedural laboratory examination SADE FELIX [facility] Start: 10-20-2022 End: 10-20-2022 ambulatory Isra Masters DO Work Phone: Gastroenterology Comment on above: Smart pill Cpap Start: 10-19-2022 End: 10-19-2022 ambulatory JENNIFER GARCIA Facility:[facility] Start: 10-18-2022 Refill Isra Ila rios DO Work Phone: Gastroenterology [...] Phone: [facility]-Physical Therapy [place] Work Phone: Start: 10-13-2022 End: 10-14-2022 ambulatory SADE FELIX Facility:[facility] Start: 10-13-2022 End: 10-14-2022 Encounter for preprocedural laboratory examination SADE FELIX Facility:[facility] Start: 10-11-2022 End: 10-11-2022 ambulatory Beto Cartagena Other [employer] Other Start: 10-11-2022 Telephone encounter Beto Cartagena [employer] Start: 10-11-2022 End: 10-11-2022 Patient encounter procedure Isra Masters DO Work Phone: Gastroenterology Comment on above: Gas bloat syndrome ( Primary Dx); Chronic idiopathic constipation; Gastroparesis Start: 10-10-2022 End: 10-10-2022 ambulatory Beto Cartagena Other [employer] Other Start: 10-10-2022 Office outpatient ne w 30 minutes Beto Cartagena [facility] Start: 10-06-2022 End: 10-06-2022 ambulatory Beto Snyder Other [employer] Other Start: 10-06-2022 Patient encounter procedure Beto Snyder [facility] [place] Start: 09-28-2022 Encounter for other preprocedural examination [facility] Start: 09-28-2022 Encounter for preprocedural cardiovascular examination [facility] Start: 09-26-2022 End: 09-27-2022 ambulatory [facility] Facility:[facility] Start: 09-22-2022 Office outpatient vi sit 25 minutes Beto Snyder [facility] [place] Start: 09-22-2022 Telephone encounter Beto BATES G [facility] [place] Start: 09-22-2022 End: 09-22-2022 ambulatory DO Shannon Gómez Work Phone: [employer] Other Start: 09-22-2022 End: 09-22-2022 Patient encounter procedure DO Shannon Gómez Work Phone: [facility] [place] [facility] Start: 09-14-2022 End: 09-14-2022 ambulatory Eliceo Gómez Other [employer] Other Start: 09-14-2022 Encounter by sierra Gómez [facility] [place] Start: 09-14-2022 Office outpatient vi sit 15 minutes Beto Snyder [facility] [place] Start: 09-14-2022 Telephone encounter Beto BATES G [facility] Start: 08-16-2022 ambulatory Mary Obrien MD Work Phone: Colorectal Surgery Comment on above: CT results Ct scan result quest ion Start: 08-16-2022 E-mail encounter fro m caregiver Mary Obrien MD Work Phone: [facility] Start: 08-12-2022 End: 08-12-2022 Subsequent hospital visit by physician Ct Prep Count Includes [facility] Start: 07-27-2022 End: 07-28-2022 ambulatory [facility] Facility:[facility] Start: 07-26-2022 Telephone encounter Isra Ila Galarzae DO Work Phone: Gastroenterology Comment on above: Medication Problem; Medication 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 (PA for Dexlansoprazole) Start: 07-26-2022 End: 07-26-2022 Patient encounter procedure Mary Obrien MD Work Phone: Colorectal Surgery Comment on above: Follow-up examinatio n after colorectal surgery (Primary Dx); Periumbilical abdominal pain; Outlet dysfunction constipation; Colonic inertia Start: 06-08-2022 (Procedure) Short Beto Snyder [facility] Start: 06-08-2022 End: 06-08-2022 ambulatory Beto Snyder Other [employer] Other Start: 05-30-2022 Refill Mary Obrien MD Work Phone: Colorectal Surgery Comment on above: Refill Request Start: 05-26-2022 End: 05-26-2022 ambulatory Beto Snyder Other [facility] Other Start: 05-26-2022 Office outpatient vi sit 25 minutes Beto Snyder [facility] [place] Start: 05-12-2022 Office consultation new/estab patient 60 min Eliceo Gómez Work Phone: [facility] 250 DO Work Phone: Start: 05-10-2022 End: 05-10-2022 ambulatory Allison Arita Other [facility] Other Start: 05-10-2022 Office outpatient vi sit 15 minutes Allison Arita [facility] Start: 05-03-2022 Telephone encounter Mary brewer MD Work Phone: Colorectal Surgery Comment on above: Promotions Specialist - O ther Start: 04-26-2022 Telephone encounter Mary brewer MD Work Phone: Colorectal Surgery Comment on above: Patient Question Start: 04-22-2022 End: 04-22-2022 Patient encounter procedure Jessi Sheets [employer] SPECIAL AGENT Work Phone: Colorectal Surgery Comment on above: Follow-up examinatio n after colorectal surgery (Primary Dx); Pelvic floor dysfunction Start: 04-17-2022 End: 04-17-2022 ambulatory CHASITY FREIRE . Facility: Start: 04-07-2022 Telephone encounter Rachael Keys [facility] Department Comment on above: PostOp Follow-up Start: 03-22-2022 Telephone encounter Mary brewer MD Work Phone: Colorectal Surgery Comment on above: Patient Question Start: 03-15-2022 End: 03-15-2022 ambulatory Beto Snyder Other [facility] Other Start: 03-15-2022 Office outpatient vi sit 15 minutes Beto Snyder [facility] [place] Start: 03-15-2022 Telephone encounter Mary brewer MD Work Phone: Colorectal Surgery Comment on above: Promotions Specialist - O ther Medication Preauthor ization (PA for Dexilant renewal) Outside Labs Results Start: 03-15-2022 End: 03-15-2022 Patient encounter procedure Isra Masters DO Work Phone: Gastroenterology Comment on above: Gastroesophageal ref lux disease, unspecified whether esophagitis present; Chronic idiopathic constipation Start: 03-14-2022 End: 03-14-2022 [place] [address] Work Phone: Pre Anesthesia Comment on above: Preop examination (P rimary Dx); Attention to ileostomy (HCC); Primary hypertension; Gastroparesis; Gastroesophageal reflux disease, unspecified whether esophagitis present; Mild persistent asthma without complication; Bipolar 1 disorder (HCC); Obesity (BMI 30.0-34.9) Start: 03-14-2022 End: 05-09-2022 Preprocedural examination done [facility] 4 Work Phone: Pre Anesthesia Start: 02-28-2022 Telephone encounter Isra Masters DO Work Phone: Gastroenterology Comment on above: Appointment (for scr ipt refill) Start: 02-18-2022 End: 02-18-2022 Patient encounter procedure Nelsy Chávez OUTBOUND SUPERVISOR.[employer]BI SPECIAL AGENT Work Phone: URO/Gynecology Comment on above: Postoperative state (Primary Dx) Start: 02-11-2022 End: 02-11-2022 ambulatory Flaca Bartholomew PT Work Phone: [facility] Start: 02-11-2022 End: 02-11-2022 Follow-up encounter Flaca Bartholomew PT Work Phone: [place] [facility] Physical Therapy Comment on above: Pelvic floor dysfunc tion (Primary Dx); Lack of coordination; Follow-up examination after colorectal surgery Start: 02-09-2022 (Procedure) Win Snyder [facility] Start: 02-09-2022 End: 02-09-2022 ambulatory Beto Snyder Other [facility] Other Start: 02-08-2022 End: 02-08-2022 Patient encounter procedure Mary Obrien MD Work Phone: Colorectal Surgery Comment on above: Follow-up examinatio n after colorectal surgery (Primary Dx) Post-operative state (Primary Dx); Yeast infection of the skin Start: 02-01-2022 Refill Isra rios DO Work Phone: Gastroenterology Comment on above: Refill Request (dexl ansoprazole) Start: 01-31-2022 End: 01-31-2022 ambulatory Newton Woodward PT Work Phone: [facility] Start: 01-31-2022 End: 01-31-2022 Follow-up encounter Newton Woodward PT Work Phone: [facility] Physical Therapy Comment on above: Pelvic floor dysfunc tion (Primary Dx); Lack of coordination; Follow-up examination after colorectal surgery Start: 11-25-2021 End: 11-25-2021 ambulatory Beto Fernándeztonia Other [facility] Other Start: 11-25-2021 Office outpatient vi sit 25 minutes Beto Snyder [facility] [place] Start: 11-17-2021 End: 11-18-2021 ambulatory [facility] Start: 10-20-2021 End: 10-20-2021 ambulatory Beto Snyder Other [facility] Other Start: 10-20-2021 Office outpatient vi sit 25 minutes Beto Snyder [facility] [place] Start: 10-13-2021 (Procedure) Short Beto Snyder [facility] Start: 10-13-2021 End: 10-13-2021 ambulatory Beto Snyder Other [facility] Other Start: 09-06-2021 Office outpatient vi sit 25 minutes Beto Snyder [facility] [place] Start: 08-19-2021 Office outpatient vi sit 15 minutes Erica Vashti [facility] Start: 08-13-2021 Office outpatient vi sit 15 minutes Tita Hardyy [facility] Start: 08-12-2021 Office outpatient vi sit 25 minutes Beto Snyder [facility] [place] Start: 07-28-2021 Office outpatient vi sit 25 minutes Beto Snyder [facility] [place] Start: 12-25-2020 End: 12-25-2020 Subsequent hospital visit by physician Brianna Connors 1 Work Phone: Radiology Comment on above: Post-operative state [Z98.890] Start: 09-29-2020 End: 09-29-2020 Subsequent hospital visit by physician Brianna Connors 1 Work Phone: Radiology Comment on above: Pain [R52] Procedures Date Procedure Procedure Detail Performing Clinician Start: 02-25-2025 XR pre/post mri tommie Gómez DO Work Phone: Start: 02-25-2025 MR thoracic spine wo raymond Gómez DO Work Phone: Start: 01-03-2025 XR FOOT RT MIN 3V [...] stick/tabl et rgnt non-auto w/o micrscp Dipti Zoya Clementer DO Work Phone: Start: 07-26-2024 Follow-up visit Follow-up PAULINE HOUSTON Start: 04-30-2024 MRI of right ankle DO Isatu Gómez Work Phone: Start: 04-12-2024 DIAGNOSTIC UPPER ENDOSCOPY Padmaja Ledezma MD, PhD Work Phone: Start: 02-27-2024 BACTERIAL VAGINOSIS NAAT Flower Lopez OUTBOUND SUPERVISOR.[employer] SPECIAL AGENT Work Phone: Start: 02-27-2024 Iadna trichomonas vaginalis amplified probe tech Flower Lopez OUTBOUND SUPERVISOR.[employer] SPECIAL AGENT Work Phone: Start: 02-27-2024 Urnls dip stick/tabl et rgnt auto w/o microscopy Flower Lopez OUTBOUND SUPERVISOR.[employer] SPECIAL AGENT Work Phone: Start: 12-20-2023 Basic metabolic pane [...] Assay of troponin quantitative Lev Ritter APRN [employer] Work Phone: Start: 08-12-2023 Ct abdomen & pelvis w/contrast material Lev Ritter APRN [employer]ENT Work Phone: Start: 08-12-2023 Urnls dip stick/tabl et reagent auto microscopy Lex Salmon MD Work Phone: Start: 08-12-2023 Basic metabolic pane l calcium total Lex Salmon MD Work Phone: Start: 08-12-2023 DARK GREEN TOP Lex buitrago MD Work Phone: Start: 08-12-2023 GOLD TOP Lex urbina MD Work Phone: Start: 08-12-2023 Hepatic function panel Lev Ritter APRN [employer] Work Phone: Start: 08-12-2023 LIGHT BLUE TOP [...] et rgnt auto w/o microscopy Nelsy Chávez OUTBOUND SUPERVISOR.[employer]BI SPECIAL AGENT Work Phone: Start: 06-05-2023 Plain chest X-ray DO Shannon Gómez Work Phone: Start: 05-23-2023 H/O: artificial joint Presence of right artificial ankle joint Sidney Amezquita DPM Work Phone: Start: 03-02-2023 Aerobic microbial culture DO Shannon Gómez Work Phone: Start: 12-26-2022 Radiologic exam esop hagus single contrast study Winston Karimitrinitymarco DO Work Phone: Start: 09-22-2022 Plain X-ray of bilat eral shoulders DO Shannon Gómez Work Phone: Start: 09-22-2022 X-ray of both knees DO Shannon Gómez Work Phone: Start: 09-14-2022 Mammography Lex rincon MD Work Phone: Start: 03-02-2022 Lipid 1996 panel - S jay or Plasma Nelsy Chávez OUTBOUND SUPERVISOR.[employer] SPECIAL AGENT Work Phone: Start: 02-08-2022 Urnls dip stick/tabl et rgnt auto w/o microscopy Magali Mitchell OUTBOUND SUPERVISOR.[employer] SPECIAL AGENT Work Phone: Start: 12-16-2021 Antibody screen Comment on above: Performed By: #### T SCR30 ####[address] [phone] Start: 10-15-2021 Antibody screen Comment on above: Performed By: #### T SCR30 ####[address] [phone] Start: 06-28-2021 Mammography Mary brewer MD Work Phone: Start: 02-18-2021 H/O: surgery S/P nasal septoplasty C lakeisha Amezquita DPM Work Phone: Start: 02-18-2021 History of tonsillectomy S/P tonsill ectomy Sidney Amezquita DPM Work Phone: Start: 12-25-2020 Radex shoulder compl ete minimum 2 views Chan Quinones PA-C Work Phone: Start: 09-29-2020 Radex shoulder compl ete minimum 2 views Ryan Lynne MD Work Phone: Colonoscopy Eliceo R Dalia Work Phone: Hysterectomy Eliceo Gómez Work Phone: Ligation of fallopian tube G eorbahman Gómez Work Phone: Operation on colon Eliceo Gómez Work Phone: Operation on rectum Eliceo Gómez Work Phone: Operative procedure on foot Eliceo Gómez Work Phone: Operative procedure on hand Eliceo Gómez Work Phone: Operative procedure on knee Eliceo Gómez Work Phone: Procedure on neck Eliceo Elliott alexfiona Work Phone: Repair of musculoten dinous cuff of shoulder Eliceo Gómez Work Phone: Tonsillectomy and adenoidectomy Eliceo Gómez Work Phone: Plan of Treatment Date Care Activity Detail Author Start: 06-22-2030 Administration of diphtheria + tetanus + acellular pertussis vaccine DTAP/TDAP/TD VACCINE (2 - Td or Tdap) [facility] Start: 06-22-2030 DTaP,Tdap and Td Vaccines (2 - Td or Tdap) DTaP,Tdap and Td Vaccines (2 - Td or Tdap) [facility] Start: 06-22-2030 Tetanus vaccination [facility] Start: 06-22-2030 Urine microalbumin profile DTaP,Tdap,Td Vaccine (2 - Td or Tdap) [facility] Start: 11-01-2028 Lipid panel Lipid Screening [facility] Start: 12-05-2027 COLORECTAL CANCER SCREENING COLORECTAL CANCER SCREENING [facility] Start: 12-05-2027 Screening for malignant neoplasm of colon [facility] Start: 12-05-2027 SIGMOIDOSCOPY SIGMOIDOSCOPY [facility] Start: 03-02-2027 Lipid 1996 panel - Serum or Plasma Lipid Screening [facility] Start: 03-02-2027 LIPID SCREEN LIPID SCREEN [facility] Start: 12-20-2026 Diabetes Screening Diabetes Screening [facility] Start: 08-12-2026 Diabetes Screening Diabetes Screening [facility] Start: 01-20-2026 Medicare Annual Wellness (AWV) Medicare Annual Wellness (AWV) [facility] Start: 11-20-2025 End: 11-20-2025 Patient encounter procedure 11/20/2025 8:30 AM EST Office Visit [facility] [address] [place] [phone] Nelsy Snyder APRN-FBI SPECIAL AGENT [address] [place] [address] [facility] Start: 04-30-2025 End: 04-30-2025 Patient encounter procedure 04/30/2025 4:00 PM EDT Procedure Visit [facility]UY[facility] KARINA [address] [place] [phone] Salma Galeas DO [address] [place] [address] [facility] Start: 04-05-2025 DIABETES SCREEN DIABETES SCREEN [facility] Start: 04-05-2025 Diabetes Screening Diabetes Screening [facility] Start: 03-14-2025 DIABETES SCREEN DIABETES SCREEN [facility] Start: 03-14-2025 Medicare Annual Wellness (AWV) Medicare Annual Wellness (AWV) [facility] Start: 02-17-[address] [facility] Start: 01-20-2025 End: 01-20-2025 Patient encounter procedure 01/20/2025 1:00 PM EDT Office Visit [facility] [address] [place] [address] Eliceo Gómez, DO [address] [place] [address] Bipolar disorder, current episode depressed, moderate (CMS/HCC) [facility] Comment on above: Bipolar disorder, current episode depres sed, moderate (CMS/HCC) Start: 01-09-2025 Adult BMI Screening Adult BMI Screening [facility] Start: 01-09-2025 Tobacco Screening Tobacco Screening [facility] Start: 12-26-2024 DIABETES SCREEN DIABETES SCREEN [facility] Start: 12-20-2024 Adult BMI Screening Adult BMI Screening [facility] Start: 12-20-2024 Tobacco Screening Tobacco Screening [facility] Start: 12-16-2024 Aldolase measurement [facility] Start: 12-16-2024 Hemolytic complement CH50 level [facility] Start: 12-16-2024 [facility] Start: 11-20-2024 Patient referral [facility] Work Phone: Start: 11-19-2024 End: 11-19-2024 Patient encounter procedure [facility] Comment on above: Arrived Start: 11-12-2024 End: 11-12-2024 Patient encounter procedure 11/12/2024 8:30 AM EST Office Visit [facility] [address] [place] [address] Dipti Acevedo, DO [address] [place] [address] [facility] Start: 11-11-2024 End: 11-11-2024 Patient encounter procedure 11/11/2024 9:20 AM EST Office Visit [facility] [address] [place] [address] Nelsy Snyder, OUTBOUND SUPERVISOR-FBI SPECIAL AGENT [address] [place] [address] [facility] Start: 11-04-2024 End: 11-04-2024 Telemedicine consultation with patient 11/04/2024 2:00 PM EST Telemedicine [facility] [address] [place] [phone] Merissa Delarosa, RD [address] [place] [address] [address] [place] [address] [facility] Start: 11-01-2024 End: 11-01-2024 Professional / ancillary services management 11/01/2024 11:00 AM EST Ancillary Procedure [facility] [place] [address] [place] [phone] [facility] [place] Start: 11-01-2024 End: 11-01-2024 Patient encounter procedure [facility] Comment on above: Aftercare following surgery Start: 10-31-2024 Screening for malignant neoplasm of breast [facility] Start: 10-28-2024 End: 10-28-2024 Telemedicine consultation with patient 10/28/2024 9:00 AM EST Telemedicine [facility] at Outpatient Care [address] [place] [address] Lissa Lou, RD [address] [place] [address] [facility] [place] Start: 10-24-2024 [facility] Start: 10-24-2024 [facility] Start: 10-23-2024 Adult BMI Screening Adult BMI Screening [facility] Start: 10-23-2024 Depression Screening [facility] Screening [facility] Start: 10-23-2024 End: 10-23-2025 FECAL FAT,QUANTITATIVE FECAL FAT,QUANTITATIVE Fluids Routine Chronic diarrhea Expected: 10/23/2024, Expires: 10/23/2025 [facility] Comment on above: Expected: 10/23/2024, Expires: Start: 10-23-2024 End: 10-23-2025 NM Stomach Views for gastric emptying W Tc-99m SC PO NUC GASTRIC EMPTYING Imaging Routine Bloating Gastroparesis Expected: 10/23/2024, Expires: 10/23/2025 [facility] Comment on above: Expected: 10/23/2024, Expires: 5 Start: 10-23-2024 End: 10-23-2025 PANCREATIC ELASTASE, STOOL PANCREATIC ELASTASE, STOOL Fluids Routine Chronic diarrhea Expected: 10/23/2024, Expires: 10/23/2025 [facility] Comment on above: Expected: 10/23/2024, Expires: Start: 10-23-2024 Tobacco Screening Tobacco Screening [facility] Start: 10-10-2024 BP Controlled (<130/80) BP Controlled (<130/80) [facility] Start: 07-12-2024 End: 07-12-2024 Professional / ancillary services management 07/12/2024 1:30 PM EDT Ancillary Procedure [facility] [address] [place] [phone] [facility] Start: 07-11-2024 End: 07-11-2025 US Soft Tissue Palpable Mass US Soft Tissue Palpable Mass Imaging Routine Soft tissue mass Expected: 07/11/2024, Expires: 07/11/2025 [facility] Work Phone: Comment on above: Expected: 07/11/2024, Expires: 5 Start: 07-07-2024 COVID-19 VACCINE ( season) COVID-19 VACCINE ( season) [facility] Start: 07-07-2024 Covid-19 Vaccine () Covid-19 Vaccine () [facility] Start: 07-07-2024 Influenza vaccination [facility] Start: 06-27-2024 End: 06-27-2024 Patient encounter procedure 06/27/2024 9:45 AM EDT Office Visit [facility] [address] [place] [address] Sidney Amezquita DPM [address] [place] [address] Arrived [facility] Comment on above: Arrived Start: 05-31-2024 Administration of varicella zoster vaccine Zoster (Shingles) Vaccine (2 of 2) [facility] Start: 05-31-2024 Zoster vaccine hzv live for subcutaneous use ZOSTER (SHINGLES) VACCINE (2 of 2) [facility] Start: 04-18-2024 End: 04-18-2024 Patient encounter procedure 04/18/2024 1:30 PM EDT Office Visit [facility] Neu[facility] [address] [place] [phone] Pauline Christensen MD [address] [place] [address], [address] [place] [address] [facility] Start: 01-10-2024 End: 01-10-2024 Patient encounter procedure 01/10/2024 12:45 PM EST Office Visit [facility] [address] [place] [address], [address] [place] [phone] Cullen Dawkins MD [address] [place] [address] [address] [place] [address] [facility] Start: 01-02-2024 End: 01-02-2024 Admission to same day surgery center 01/02/2024 11:00 AM EST - 01/02/2024 3:30 PM EST Surgery [facility] - Surgery [address] [facility] [place] [address] Cullen Dawkins MD [address] [place] [address] [address] [place] [address] INSERTION STIMULATOR NERVE HYPOGLOSSAL [52066 (CPT )] [facility] Comment on above: INSERTION STIMULATOR NERVE HYPOGLOSSAL [ 88711 (CPT )] Start: 01-02-2024 End: 01-02-2024 INSERTION STIMULATOR NERVE HYPOGLOSSAL INSERTION STIMULATOR NERVE HYPOGLOSSAL CHUCKIE (obstructive sleep apnea) 01/02/2024 11:00 AM EST [facility] Start: 01-02-2024 Subsequent hospital visit by physician 01/02/2024 11:00 AM EST Hospital Encounter [facility] [address] [place] [address] Cullen Dawkins MD [address] [facility] [address] [place] [address] [facility] Surgery Start: 11-06-2023 Behavioral Health Screening Behavioral Health Screening [facility] Start: 11-06-2023 Depression Assessment Depression Assessment [facility] Start: 09-27-2023 End: 12-27-2023 Bacteria identified in Urine by Culture URINE CULTURE Microbiology Routine Burning with urination Expected: 09/27/2023, Expires: 12/27/2023 [facility] Work Phone: Comment on above: Expected: 09/27/2023, Expires: Start: 09-14-2023 Screening for malignant neoplasm of breast MAMMOGRAM [facility] Start: 08-01-2023 FUV, Provider: Dipti Anaya, Status: Pen, Time: 11:00 AM FUV, Provider: Dipti Anaya, Status: Pen, Time: 11:00 AM [facility] 320 DO Work Phone: Start: 07-07-2023 Covid-19 Vaccine ( season) Covid-19 Vaccine ( season) [facility] Start: 07-07-2023 Influenza vaccination [facility] Start: 07-07-2023 Influenza vaccination given INFLUENZA VACCINE (#1) [facility] Start: 06-05-2023 [facility] Start: 04-22-2023 BP CONTROLLED (<130/80) BP CONTROLLED (<130/80) [facility] Start: 03-14-2023 BP CONTROLLED (<130/80) BP CONTROLLED (<130/80) [facility] Start: 02-18-2023 BP CONTROLLED (<130/80) BP CONTROLLED (<130/80) [facility] Start: 02-08-2023 BP CONTROLLED (<130/80) BP CONTROLLED (<130/80) [facility] Start: 01-18-2023 BP CONTROLLED (<130/80) BP CONTROLLED (<130/80) [facility] Start: 11-06-2022 DEPRESSION ASSESSMENT DEPRESSION ASSESSMENT [facility] Start: 09-22-2022 [facility] Start: 08-02-2022 End: 08-25-2023 Ct abdomen & pelvis w/contrast material CT ABD/PEL W IVCON Radiology Routine Periumbilical abdominal pain Expected: 08/02/2022, Expires: 08/25/2023 [facility] Work Phone: Comment on above: Expected: 08/02/2022, Expires: 3 Start: 07-07-2022 Influenza vaccination [facility] Start: 06-28-2022 Mammography [facility] Start: 2022 Administration of varicella zoster vaccine Zoster (Shingles) Vaccine (1 of 2) [facility] Start: 2022 COVID-19 VACCINE (4 - Booster for Pfizer series) COVID-19 VACCINE (4 - Booster for Pfizer series) [facility] Start: 2022 SHINGRIX VACCINE (1 of 2) SHINGRIX VACCINE (1 of 2) [facility] Start: 2022 Zoster vaccine hzv live for subcutaneous use ZOSTER (SHINGLES) VACCINE (1 of 2) [facility] Start: 04-01-2022 End: 06-01-2022 CBC W Auto Differential panel - Blood CBC + DIFF Lab Routine Follow-up examination after colorectal surgery Expected: 04/01/2022, Expires: 06/01/2022 [facility] Work Phone: Comment on above: Expected: 04/01/2022, Expires: Start: 04-01-2022 End: 06-01-2022 Comprehensive metabolic 2000 panel - Serum or Plasma COMP METABOLIC PANEL Lab Routine Follow-up examination after colorectal surgery Expected: 04/01/2022, Expires: 06/01/2022 [facility] Work Phone: Comment on above: Expected: 04/01/2022, Expires: 2 Start: 04-01-2022 End: 06-01-2022 TYPE AND SCREEN,30 DAY TYPE AND SCREEN,30 DAY Blood Bank Routine Follow-up examination after colorectal surgery Expected: 04/01/2022, Expires: 06/01/2022 [facility] Work Phone: Comment on above: Expected: 04/01/2022, Expires: 2 Start: 01-19-2022 COVID-19 VACCINE (4 - Booster for Pfizer series) COVID-19 VACCINE (4 - Booster for Pfizer series) [facility] Start: 01-19-2022 COVID-19 VACCINE (4 - Pfizer series) COVID-19 VACCINE (4 - Pfizer series) [facility] Start: 11-06-2021 DEPRESSION ASSESSMENT DEPRESSION ASSESSMENT [facility] Start: 07-07-2021 Influenza vaccination INFLUENZA (#1) [facility] Start: 03-24-2021 Screening for malignant neoplasm of colon COLORECTAL CANCER SCREENING DISCUSSION [facility] Start: 04-05-2020 Screening for malignant neoplasm of breast MAMMOGRAM SCREENING DISCUSSION [facility] Start: 2017 COLOGUARD (FIT-DNA) COLOGUARD (FIT-DNA) [facility] Start: 2017 Colonoscopy COLONOSCOPY [facility] Start: 2017 COLORECTAL CANCER SCREENING COLORECTAL CANCER SCREENING [facility] Start: [address] COLONOGRAPHY [facility] Start: 2017 FECAL OCCULT BLOOD FECAL OCCULT BLOOD [facility] Start: 2017 LIPID SCREEN LIPID SCREEN [facility] Start: 2017 Screening for malignant neoplasm of colon [facility] Start: 2017 SIGMOIDOSCOPY SIGMOIDOSCOPY [facility] Start: 2012 Lipid panel LIPID SCREENING [facility] Start: 2012 Mammography MAMMOGRAM [facility] Start: 10-11-2008 Hepatitis B vaccination HEP B VACCINE (3 of 3 - 19+ 3-dose series) [facility] Start: 10-11-2008 Hepatitis B Vaccine (3 of 3 - 19+ 3-dose series) Hepatitis B Vaccine (3 of 3 - 19+ 3-dose series) [facility] Start: 2002 HPV TESTING HPV TESTING [facility] Start: 2002 Screening for malignant neoplasm of cervix HPV Testing [facility] Start: 1993 PAP TESTING PAP TESTING [facility] Start: 1993 Screening for malignant neoplasm of cervix [facility] Start: 1991 Urine microalbumin profile [facility] Start: 1990 Adult BMI Follow Up Plan Adult BMI Follow Up Plan [facility] [facility] Start: 1990 ANNUAL PCP TEAM CHRONIC DISEASE VISIT ANNUAL PCP TEAM CHRONIC DISEASE VISIT [facility] Start: 1990 ANNUAL WELLNESS VISIT ANNUAL WELLNESS VISIT [facility] Start: 1990 Anxiety Screening Anxiety Screening [facility] Start: 1990 BP CONTROLLED (<130/80) BP CONTROLLED (<130/80) [facility] in Start: 1990 Depression Screening Depression Screening [facility] Start: 1990 HEPATITIS C SCREENING HEPATITIS C SCREENING [facility] Start: 1990 Hepatitis C screening Hepatitis C Screening [facility] Start: 1990 HIV SCREENING HIV SCREENING [facility] Start: 1990 HIV screening HIV Screening [facility] Start: 1987 HIV screening HIV SCREENING DISCUSSION [facility] Start: 1984 Adult depression screening assessment DEPRESSION SCREENING [facility] Start: 1984 Depression screening using PHQ-9 (Patient Health Questionnaire 9) score DEPRESSION SCREENING [facility] Start: 1978 PNEUMOCOCCAL (1 - PCV) PNEUMOCOCCAL (1 - PCV) [facility] Start: 1978 Pneumococcal vaccination Pneumococcal Vaccine (1 - PCV) [facility] Start: 1972 HEPATITIS B (1 of 3 - 3-dose series) HEPATITIS B (1 of 3 - 3-dose series) [facility] Start: 1972 Hepatitis B Vaccine (1 of 3 - 3-dose series) Hepatitis B Vaccine (1 of 3 - 3-dose series) [facility] Start: 1972 Hepatitis C screening HEPATITIS C VIRUS SCREENING [facility] Start: 1972 HPV/COTEST HPV/COTEST [facility] Start: 1972 Screening for malignant neoplasm of cervix [facility] 12 lead ECG EKG 12 lead ECG REYNA 08[facility]12[facility]23 12:28 [facility] 24 hour urine measurement [facility] Albumin [Mass/volume ] in Serum or Plasma [facility] Albumin/Globulin ratio [facility] Chromatin Ab [Units/volume] in Serum or Plasma [facility] Complement C3 [Mass/volume] in Serum or Plasma [facility] Complement C4 [Mass/volume] in Serum or Plasma [facility] CT Abdomen and Pelvi s W contrast IV CT Abdomen / Pelvis With IV Contrast ONLY Imaging STAT 08/12/2023 5:42 AM [facility] End: 01-12-2024 EGD - THERAPEUTIC, EUS, OR TUBE INTERVENTIONS EGD - THERAPEUTIC, EUS, OR TUBE INTERVENTIONS Endoscopy Routine Gastroparesis 1 Occurrences starting 01/11/2023 until 01/12/2024 [facility] Work Phone: Comment on above: 1 Occurrences starting 01/11/2023 until 01/12/2024 Electromyography [facility] Electrophoresis: [id number] [facility] Electrophoresis: [id number] [facility] Electrophoresis: beta-globulin [facility] Electrophoresis: jenifer ma globulin [facility] FAT, FECAL QUAL FAT, FECAL QUAL Lab Routine Diarrhea due to malabsorption Ordered: 03/15/2023 [facility] Work Phone: Comment on above: Ordered: 03/15/2023 End: 10-11-2023 Gi transit & pres ravinder wireless capsule w/interp CAPSULE ENDOSCOPY SMART Endoscopy Routine Gastroparesis 1 Occurrences starting 10/11/2022 until 10/11/2023 [facility] Work Phone: Comment on above: 1 Occurrences starting 10/11/2022 until 10/11/2023 Globulin [Mass/volum e] in Serum [facility] Homogenous nuclear A b pattern [Titer] in Serum [facility] Hydrogen breath test HYDROGEN (H 2) BREATH TEST GI/Bronch Routine Chronic abdominal pain Bloating Ordered: 08/09/2024 [facility] Comment on above: Ordered: 08/09/2024 IgA [Mass/volume] in Serum or Plasma [facility] IgG [Mass/volume] in Serum or Plasma [facility] IgM [Mass/volume] in Serum or Plasma [facility] Immunofixation for Urine Fir [facility] Lupus anticoagulant [Interpretation] in Platelet poor plasma [facility] Measurement of monoclonal protein concentration [facility] MR Cervical spine WO contrast [facility] Myoglobin [Mass/volu me] in Serum or Plasma [facility] Nuclear Ab [Titer] i n Serum [facility] End: 12-17-2023 PAP TITRATION PSG (CPAP, BIPAP, ASV) PAP TITRATION PSG (CPAP, BIPAP, ASV) Procedures Routine CHUCKIE (obstructive sleep apnea) 1 Occurrences starting 11/17/2022 until 12/17/2023 [facility] Work Phone: Comment on above: 1 Occurrences starting 11/17/2022 until 12/17/2023 Patient Education [facility] Work Phone: Patient referral [facility] Work Phone: Protein [Mass/volume ] in Serum or Plasma [facility] Protein [Mass/volume ] in Urine [facility] Reagin Ab [Presence] in Serum by RPR [facility] SARS-CoV-2 (COVID-19 ) RNA [Presence] in Respiratory specimen by JOSÉ MIGUEL with probe detection SELF CHECK COVID Microbiology Routine Follow-up examination after colorectal surgery Ordered: 02/09/2022 [facility] Work Phone: Comment on above: Ordered: 02/09/2022 Serum immunofixation [facility] End: 11-30-2023 SIGMOIDOSCOPY SIGMOIDOSCOPY Endoscopy Routine Chronic idiopathic constipation 1 Occurrences starting 11/30/2022 until 11/30/2023 [facility] Work Phone: Comment on above: 1 Occurrences starting 11/30/2022 until 11/30/2023 SURG PATH REQUEST [facility] Comment on above: Release Upon Ordering for 1 Occurrences starting 04/12/2024, 1 completed Thrombin time [facility] Thyroglobulin Ab [Units/volume] in Serum or Plasma [facility] Thyroperoxidase Ab [Units/volume] in Serum or Plasma [facility] End: 08-12-2023 Troponin I.cardiac [Mass/volume] in Serum or Plasma Troponin I (One time) Lab Timed Once for 1 Occurrences starting 08/12/2023 until 08/12/2023 [facility] Work Phone: Comment on above: Once for 1 Occurrences starting 08/12/20 until 08/12/2023 URODYNAMICS [facility] URODYNAMICS [facility] Procedures Routine Incomplete bladder emptying Urinary urgency Urinary frequency Nocturia Ordered: 07/31/2023 [facility] Work Phone: Comment on above: Ordered: 07/31/2023 XR Shoulder - bilate ral Views [facility] Immunizations Immunization Date Immunization Notes Care Provider Fa fredi 07-01-2024 influenza, injectabl e, madin cynthia canine kidney, preservative free Eliceo Gómez DO Work Phone: [facility] 05-21-2024 Hepatitis B vaccine (recombinant), CpG adjuvanted Sidney Amezquita DPM Work Phone: [facility] 05-21-2024 meningococcal oligosaccharide (groups A, C, Y and W-135) diphtheria toxoid conjugate vaccine (MCV4O) Sidney Amezquita DPM Work Phone: [facility] 04-05-2024 zoster vaccine recombinant Sidney Amezquita DPM Work Phone: [facility] 04-05-2024 zoster vaccine, unspecified formulation Milagros Franco MD, PhD Work Phone: [facility] 12-21-2023 Influenza, injectabl e, Madin Jackson Canine Kidney, preservative free, quadrivalent Sidney Amezquita DPM Work Phone: [facility] 12-21-2023 influenza virus vaccine, unspecified formulation [facility] 08-17-2022 influenza, injectabl e, quadrivalent, preservative free Sidney Amezquita DPM Work Phone: [facility] 08-17-2022 influenza virus vaccine, unspecified formulation Nelsy Chávez APRN.FBI SPECIAL AGENT Work Phone: [facility] 11-24-2021 Pfizer-BioNTech COVID-19 Vacc 30 MCG/0.3ML Intramuscular Suspension Eliceo Gómez Work Phone: -[facility] [employer] DO Work Phone: 08-19-2021 KENALOG - 10 mg Erica keys Other [employer] Other 05-11-2021 Pfizer-BioNTech COVID-19 Vacc 30 MCG/0.3ML Intramuscular Suspension Eliceo Gómez Work Phone: [facility] [employer] DO Work Phone: 05-10-2021 Pfizer Purple Cap SARS-CoV-2 Vaccination Sidney Amezquita DPM Work Phone: [facility] 04-20-2021 Pfizer-BioNTech COVID-19 Vacc 30 MCG/0.3ML Intramuscular Suspension Eliceo Gómez Work Phone: [facility] [employer] DO Work Phone: 04-19-2021 Pfizer Purple Cap SARS-CoV-2 Vaccination Sidney Amezquita DPM Work Phone: [facility] 09-02-2020 influenza, injectabl e, quadrivalent, preservative free Eliceo Gómez Work Phone: [facility] [employer] DO Work Phone: 08-06-2020 influenza, injectabl e, quadrivalent, preservative free Eliceo R Hernandezan Work Phone: [facility] 06-22-2020 tetanus toxoid, redu nayeli diphtheria toxoid, and acellular pertussis vaccine, adsorbed Eliceo Gómez Work Phone: [facility] [employer] DO Work Phone: 02-01-2020 Toradol per 15 mg Beto turpin Other [employer] Other 08-20-2019 influenza, injectabl e, quadrivalent, preservative free Sidney Amezquita DPM Work Phone: [facility] 07-15-2018 influenza, seasonal, injectable, preservative free Eliceo Ngan Work Phone: [facility] [employer] DO Work Phone: 07-14-2016 Rocephin 500 mg Beto ellis Other [employer] Other 05-12-2008 hepatitis B vaccine, adult dosage Eliceo Asiya Gómez Work Phone: [facility] [employer] DO Work Phone: 04-11-2008 hepatitis B vaccine, adult dosage Eliceo R Hernandezan Work Phone: [facility] [employer] DO Work Phone: Payers Date Payer Category Payer Medicare [id number] 2024 Medicare [id number]. [id number] 2024 Medicare (Managed Care) 1.2. [id number] 2024 Medicare [id number] 2024 Private Health Insurance [id number] 2024 Private Health Insurance 2024 Self-pay [id number] 2022 Unknown 2022 Medicaid [place] MED[place] [id number] 2021 Medicaid [employer] MED[employer] MEDICAID [id number] 2021-Present [phone] [place] [address] Medicaid [id number]. [id number] 2019 Medicaid [id number]. 1.13.159.2. [id number] 1972 Unknown [id number] 2.16.840.1.121135.3.579.2. 176 1972 Unknown [id number] 2.16.840.1.734696.3.579.2. 593 1972 Unknown [id number] 2.16.840.1.389470.3.579.2. 593 1972 Unknown [id number] 2.16.840.1.135429.3.579.2. 593 1972 Unknown [id number] 2.16.840.1.316206.3.579.2. 593 1972 Unknown [id number] 2.16.840.1.845920.3.579.2. 593 1972 Unknown [id number] 2.16.840.1.692665.3.579.2. 593 1972 Unknown [id number] 2.16.840.1.994175.3.579.2. 593 1972 Unknown [id number] 2.16.840.1.469887.3.579.2. 593 1972 Unknown [id number] 2.16.840.1.686815.3.579.2. 593 1972 Unknown [id number] 2.16.840.1.489304.3.579.2. 593 1972 Unknown [id number] 2.16.840.1.542430.3.579.2. 593 1972 Unknown [id number] 2.16.840.1.715346.3.579.2. 593 1972 Unknown [id number] 2.16.840.1.687202.3.579.2. 593 1972 Unknown [id number] 2.16.840.1.017018.3.579.2. 593 1972 Unknown [id number] 2.16.840.1.586530.3.579.2. 593 1972 Unknown [id number] 2.16.840.1.403904.3.579.2. 593 1972 Unknown [id number] 2.16.840.1.585160.3.579.2. 593 1972 Unknown [id number] 2.16.840.1.540477.3.579.2. 297 1972 Unknown [id number] 2.16.840.1.720791.3.579.2. 297 1972 Unknown [id number] 2.16.840.1.053413.3.579.2. 356 1972 Unknown [id number] 2.16.840.1.583773.3.579.2. 356 1972 Unknown [id number] 2.16.840.1.249149.3.579.2. 356 1972 Unknown [id number] 2.16.840.1.698447.3.579.2. 1286 1972 Unknown [id number] 2.16.840.1.279668.3.579.2. 1286 1972 Unknown [id number] 2.16.840.1.527551.3.579.2. 1286 1972 Unknown [id number] 2.16.840.1.657359.3.579.2. 1286 1972 Unknown [id number] 2.16.840.1.947784.3.579.2. 1286 1972 Unknown [id number] 2.16.840.1.889348.3.579.2. 1286 1972 Unknown [id number] 2.16.840.1.121316.3.579.2. 1286 1972 Unknown [id number] 2.16.840.1.687863.3.579.2. 1286 1972 Unknown [id number] 2.16.840.1.582095.3.579.2. 1286 1972 Unknown [id number] 2.16.840.1.103259.3.579.2. 594 1972 Unknown [id number] 2.16.840.1.674311.3.579.2. 594 1972 Unknown [id number] 2.16.840.1.114235.3.579.2. 594 1972 Unknown [id number] 2.16.840.1.305928.3.579.2. 594 1972 Unknown [id number] 2.16840.1.912873.3.579.2. 594 1972 Unknown [id number] 2.16.840.1.806679.3.579.2. 594 1972 Unknown [id number] 2.840.1.517607.3.579.2. 594 1972 Unknown [id number] 2.840.1.625078.3.579.2. 594 1972 Unknown [id number] 2.840.1.755684.3.579.2. 594 1972 Unknown [id number] 2.840.1.842073.3.579.2. 594 1972 Unknown [id number] 2.840.1.807812.3.579.2. 1258 1972 Unknown [id number] 2.840.1.136784.3.579.2. 9 1972 Unknown [id number] 2.840.1.680455.3.579.2. 1258 1972 Unknown [id number] 2.840.1.323113.3.579.2. 1258 1972 Unknown [id number] 2.840.1.604835.3.579.2. 1258 1972 Unknown [id number] 2.16.840.1.157309.3.579.2. 1258 1972 Unknown [id number] 2.16840.1.601294.3.579.2. 1258 1972 Unknown [id number] 2.16.840.1.648865.3.579.2. 1258 1972 Unknown [id number] 2.840.1.116977.3.579.2. 1258 1972 Unknown [id number] 2.840.1.499756.3.579.2. 1258 1972 Unknown [id number] 2.0.1.668019.3.579.2. 1258 1972 Unknown [id number] 2.840.1.829542.3.579.2. 1258 1972 Unknown [id number] 2.0.1.644749.3.579.2. 1258 1972 Unknown [id number] 2.0.1.790786.3.579.2. 1258 1972 Unknown [id number] 2..1.094573.3.579.2. 1258 1972 Unknown [id number] 2.0.1.849463.3.579.2. 1258 1972 Unknown [id number] 2.0.1.065242.3.579.2. 1258 1972 Unknown [id number] 2..1.219164.3.579.2. 1258 1972 Unknown [id number] 2.1.335085.3.579.2. 1258 1972 Unknown [id number] 2.840.1.734185.3.579.2. 1258 1972 Unknown [id number] 2.0.1.076264.3.579.2. 1258 1972 Unknown [id number] 2.840.1.924437.3.579.2. 1258 1972 Unknown [id number] 2.0.1.505407.3.579.2. 1258 1972 Unknown [id number] 2.16.840.1.880710.3.579.2. 1258 1972 Unknown [id number] 2.16.840.1.141953.3.579.2. 1258 1972 Unknown [id number] 2.16.840.1.403603.3.579.2. 1258 1972 Unknown [id number] 2.16.840.1.500753.3.579.2. 1258 1972 Unknown [id number] 2.16.840.1.652375.3.579.2. 1258 1972 Unknown [id number] 2.16.840.1.982971.3.579.2. 1258 1972 Unknown [id number] 2.16.840.1.314788.3.579.2. 1972 Unknown [id number] 2.16.840.1.815447.3.579.2. 1972 Unknown [id number] 2.16.840.1.163198.3.579.2. 1972 Unknown [id number] 2.16.840.1.166577.3.579.2. 1972 Unknown [id number] 2.16.840.1.276936.3.579.2. 1972 Unknown [id number] 2.16.840.1.845045.3.579.2. 1972 Unknown [id number] 2.16.840.1.321374.3.579.2. 1972 Unknown [id number] 2.16.840.1.095988.3.579.2. 1972 Unknown [id number] 2.16.840.1.443794.3.579.2. 1959 Medicaid [id number] 1959 Unknown [id number] Unknown [facility] [id number] Unknown [id number] 2.16.840.1.192927.3.579.2. 531 Unknown [id number] 2.16.840.1.775216.3.579.2. 531 Unknown [id number] 2.16.840.1.329544.3.579.2. 531 Unknown [id number] 2.16.840.1.734374.3.579.2. 531 Unknown [id number] 2.16.840.1.031733.3.579.2. 531 Unknown [id number] 2.16.840.1.171993.3.579.2. 531 Unknown [id number] 2.16.840.1.286429.3.579.2. 531 Unknown [id number] 2.16.840.1.478916.3.579.2. 531 Unknown [id number] 2.16.840.1.666922.3.579.2. 531 Unknown [id number] 2.16.840.1.715778.3.579.2. 531 Unknown [id number] 2.16.840.1.564305.3.579.2. 531 Social History Date Type Detail Facility Start: 10-08-2020 End: 04-04-2023 Tobacco smoking status VTIS Never smoked tobacco [facility] Start: 10-08-2020 End: 04-04-2023 Tobacco use and exposure Smokeless tobacco non-user [facility] Start: 01-04-2022 End: 01-20-2025 Alcohol intake Lifetime non-drinker (finding) [facility] Start: 10-08-2020 History SDOH Alcohol Frequency 1 [facility] Start: 1970 Sex Assigned At Female [facility] Start: 08-30-2020 End: 07-26-2022 Exposure to SARS-CoV-2 (event) Not sure [facility] Start: 10-08-2020 End: 05-01-2024 Sex Assigned At [facility] Start: 10-08-2020 End: 05-01-2024 No alcohol use No alcohol use [facility] Comment on above: 3 TEA WEEK; How often to you hav e a drink containing alcohol? Never [facility] Average Number of Drinks Not on file [facility] Start: 07-28-2020 Gender identity Identifies as female gender (finding) [facility] Start: 07-03-2021 Sexual orientation Heterosexual (keon ribeiro) [facility] Start: 06-05-2023 End: 06-05-2023 Tobacco smoking status NHIS Smoker (finding) [facility] Start: 1970 Sex Assigned At Not on file [facility] Tobacco smoking stat us [facility] Tobacco smoking consumption unknown [facility] Within the last year , have you [...] cups per day [facility] Start: 09-16-2024 End: 02-26-2025 Sex Female (finding) [facility] Start: 01-10-2024 End: 01-18-2024 Alcoholic beverage intake Ex-drinker (finding) [facility] Medical Equipment Procedure Code Equipment Code Equipment Original Text Equipment Identifier Dates Fibertak Bingen Self-Punching Knotless 2.6mm W/No 5 Suture [id number] Start: 10-14-2020 Fibertak Bingen Knotless 2.6mm [id number] Start: 10-14-2020 Bingen Swivelock C 4.75mm Biocomposite Peek 19.1mm Suture Closed Eyelet - [id number] Start: 10-14-2020 Sling Gynecare T vt Exact Gynecological Stress Urinary Incontinence - [id number] Start: 12-24-2021 DISC CERVICAL 13 X15X5H MOBI-C FDA Start: 09-20-2017 DISC CERVICAL 13 X15X5H MOBI-C FDA Start: 09-20-2017 DISC CERVICAL 13 X15X5H MOBI-C FDA Start: 09-20-2017 DISC CERVICAL 13 X15X5H MOBI-C FDA Start: 09-20-2017 DISC CERVICAL 13 X15X5H MOBI-C FDA Start: 09-20-2017 Lead Intrstim Mr i 28cm - [id number] Start: 01-26-2024 Interstim X Rech arge Free Neurostimulator - [id number] Start: 01-26-2024 DISC CERVICAL 13 X15X5H MOBI-C FDA Start: 09-20-2017 DISC CERVICAL 13 X15X5H MOBI-C FDA Start: 09-20-2017 DISC CERVICAL 13 X15X5H MOBI-C FDA Start: 09-20-2017 DISC CERVICAL 13 X15X5H MOBI-C FDA Start: 09-20-2017 DISC CERVICAL 13 X15X5H MOBI-C FDA Start: 09-20-2017 DISC CERVICAL 13 X15X5H MOBI-C FDA Start: 09-20-2017 Generator Nrstm - [id number] Start: 01-02-2024 Lead Ns Respirat ory - [id number] Start: 01-02-2024 Lead Nrstm Inspr 3 Elect Cuf Tnl Boni Strl Lf - [id number] - [id number] Start: 01-02-2024 DISC CERVICAL 13 X15X5H MOBI-C FDA Start: 09-20-2017 DISC CERVICAL 13 X15X5H MOBI-C FDA Start: 09-20-2017 DISC CERVICAL 13 X15X5H MOBI-C FDA Start: 09-20-2017 Goals Date Patient Goal Desired Activity /State Clinical Notes 10-27-2020 to 02-24-2025 Telephone Encounter - Rosmery Horan - 02/24/2025 2:49 PM EDTTelephone Encounter - Rosmery Horan - 02/24/2025 2:49 PM EDTTelephone Encounter - Demi Machado - 12/10/2024 4:16 PM EST Note Date & Type Note Facility 02-24-2025 Telephone encount er Note Pt would like to know if [facility] can increase her Estradiol dose because she is having more hot flashes during the daytime. She takes the medication in the mornings. Please contact [facility] 02-24-2025 Miscellaneous Notes Formattin g of this note might be different from the original. Pt would like to know if [facility] can increase her Estradiol dose because she is having more hot flashes during the daytime. She takes the medication in the mornings. Please contact documented in this encounter [facility] 12-10-2024 Miscellaneous Notes Formattin g of this note might be different from the original. Received call today 12/10/24 4:20 Medication Refill request: Medication Name and Strength: Emgality pen injector 120 mg Current dose & Frequency: Patient stated that provider sends 2 scripts of 120 mg for a total of 240 mg actually taking - not what is listed on the prescription label 30 day or 90 day supply preferred: 30 day [facility] [place] If already on preferred pharmacy list - [...] office about this. Patient's callback# if needed: [phone]. Patient stated she no longer has [place] Medicaid and now has the following (informed patient we don't have this on our covered/non-covered list so I provided her with our tax ID# to check with insurance): Insurance Name: [employer] Medicare Dual Complete ID#: [id number] Grp#: [id number] RxGrp#: [id number] RxBIN#: [id number] RxPCN#: [id number] Provider Service Line phone#: [phone] Refill request for Emgality 120mg/ml verified in refill encounter 05/14/24. Pended to Dr. Christensen for review and signature Start date from last refill: 05/15/24 Next follow up: not yet scheduled documented in this encounter [facility] 12-10-2024 Telephone encount er Note Received call today 12/10/24 4:20 Medication Refill request: Medication Name and Strength: Emgality pen injector 120 mg Current dose & Frequency: Patient stated that provider sends 2 scripts of 120 mg for a total of 240 mg actually taking - not what is listed on the prescription label 30 day or 90 day supply preferred: 30 day [facility] [place] If already on preferred pharmacy list - [...] office about this. Patient's callback# if needed: [phone]. Patient stated she no longer has [place] Medicaid and now has the following (informed patient we don't have this on our covered/non-covered list so I provided her with our tax ID# to check with insurance): Insurance Name: [employer] Medicare Dual Complete ID#: [id number] Grp#: [id number] RxGrp#: [id number] RxBIN#: [id number] RxPCN#: [id number] Provider Service Line phone#: [phone] [facility] 12-10-2024 Telephone encount er Note Refill request for Emgality 120mg/ml verified in refill encounter 05/14/24. Pended to Dr. Christensen for review and signature Start date from last refill: 05/15/24 Next follow [facility]: [facility] Evaluation note Diagnosis Onset Date Resolution Cervical radiculopathy acute Ja vin 2024 1:13pm [facility] Work Phone: 1(410) 648-356801-14-2025 History of Present illness Narrative* STELLA Espinal - 11/19/2024 8:30 AM EST Skin Check Location: Patient requests a skin [...] benign pigmented lesions that occur on sun-exposed andsun-damaged skin. No treatment is necessary. Recommended regular use of broad spectrum sunscreen SPF 30 or higher 3. Capillary angioma Trunk Scattered jorge-red papule(s). The patient was informed that angiomas are benign growths on the the skin. No treatment is necessary. Next Visit: 1 year, skin check [id number] Nuclear medicine Diagnostic study [facility] [place] [address] Nuclear Medicine Report Signed Patient: Mary Leal MR#: [id number] : 1970 Acct:[id number] Age/Sex: 54 / F ADM Date: 5 Loc: [place] Room: Type: [facility] Attending Dr: Padmaja Ledezma MD Copies to: Quinton Melendez Jr, DO Na Li, MD~ Ordering Provider: Padmaja Ledezma MD Date of Service: 11/14/24 [place] gastric emptying study: R14.0 K31.84 GASTRIC EMPTYING STUDY: CLINICAL HISTORY: Nausea full filling for 5 years. TECHNIQUE: Following the oral ingestion of 1.1 mCi Tc 99m labeled sulfur colloid mixed withegg, planar imagingof the abdomen was obtained. FINDINGS: At 30 minutes, 88% of the radiotracer remained within the stomach. At 1 hour, 69% of the radiotracer remained within the stomach. At 2 hours, 43% of the radiotracer remained within the stomach. At 3 hours, 18% of the radiotracer remained within the stomach. At 4 hours, 3% of the radiotracer remained within the stomach. FL/FL gastric emptying study IMPRESSION: No scintigraphic evidence of gastroparesis. Impression dictated by: Quinton Melendez Jr., D.O.11/14/2024 1:54 PM Dictation Location: [place] [address] Transcribed By: [facility] 11/14/24 1354 Dictated By: Quinton Melendez Jr, DO 11/14/24 1354 Signed By: 11/14/24 [facility]4 [facility] Inc01-07-2025 History of Present illness Narrative * Wendy Colon MA - 11/12/2024 8:30 AM EST Images from the original note [...] to the clinic 19 days status post mold filling operator surgery. Eating a regular diet with difficulty. [...] Review Audit Reviewed by Nida Toro MA (Custom Shoemaker) on 11/12/24 at 0827 Medication Order Taking? Sig Documenting Provider Last Dose Status Lolis Maintena 300 MG injection syringe [id number] inject INTRAMUSCULARLY ONCE A MONTH (BRING TO OFFICE FOR PROVIDER TO ADMINISTER) Active albuterol HFA 90 mcg/act inhaler [id number] Inhale 2 puffs every 4 (four) hours if needed for wheezing Eliceo Gómez DO 10/19/24 8998 atenolol (Tenormin) 50 MG tablet [id number] Take 1 tablet (50 mg) by mouth Daily Eliceo Gómez DO Active cholecalciferol (Vitamin D-3) 125 MCG (5000 UT) capsule [id number] Take 125 mcg by mouth Daily Dipti Acevedo DO Active colestipol (Colestid) 1 g tablet [id number] Take 1 g by mouth in the morning and 1 g in the evening. Dipti Acevedo DO Active Daridorexant HCl (Quviviq) 50 MG tablet [id number] Take 50 mg by mouth at bedtime Eliceo Gómez DOActive estradiol (Estrace) 0.1 MG/GM vaginal cream [id number] APPLY 0.5G VAGINALLY TWICE WEEKLY. Dipti Acevedo DO Active estradiol (Estrace) 1 MG tablet [id number] Take 1 tablet (1 mg) by mouth Daily Dipti Acevedo DO Active ferrous sulfate 325 (65 Fe) MG tablet [id number] Take 325 mg by mouth every other day Ron King NP Active fluvoxaMINE (Luvox) 50 MG tablet [id number] Take 50 mg by mouth at bedtime Dipti Acevedo DO Active galcanezumab (Emgality) 120 MG/ML auto-injector [id number] Inject 120 mg under the skin every 30 (thirty) days Dipti Acevedo DO Active L-Theanine 200 MG capsule [id number] Take 1 capsule by mouth Daily Carmen Cruz MD Active losartan (Cozaar) 25 MG tablet [id number] Take 1 tablet (25 mg) by mouth Daily Eliceo Gómez DO Active methylphenidate ER (Concerta) 54 MG CR tablet [id number] Take 54 mg by mouth Daily Eliceo Gómez DO Active mirabegron ER (Myrbetriq) 50 MG 24 hr tablet [id number] Take 1 tablet (50 mg) by mouth at bedtime Do not crush, chew, or split. Dipti Acevedo DO Active Multiple Vitamin (Daily-Elisa Multivitamin) tablet [id number] Yes Take 1 tablet by mouth Daily Melina Acevedo DO Active omeprazole (PriLOSEC) [address] capsule [id number] Take 40 mg by mouth in the morning. Active Quviviq 25 MG tablet [id number] TAKE 1 TABLET BY MOUTH BEDTIME ( NEEDED) FOR SLEEP Dipti Acevedo DO Active rOPINIRole (Requip) 1 MG tablet [id number] Take 1 tablet (1 mg) by mouth in the morning. Eliceo Gómez DO Active rOPINIRole (Requip) 2 MG tablet [id number] Take 1 tablet (2 mg) by mouth at bedtime Eliceo Gómez DO Active Trelegy Ellipta 100-62.5-25 MCG/ACT aerosol powder [id number] INHALE 1 PUFF BY MOUTH DAILY Eliceo Gómez DO Active triamcinolone (Kenalog) 0.1 % cream [id number] Apply topically 2 (two) times a day Dipti Acevedo DO Active Past Medical History: Diagnosis Date ADHD (attention deficit hyperactivity disorder) ([facility]) 1994 Asthma ([facility]) Basal cell carcinoma right chest Colon polyp Compressed cervical disc Cystocele 2021 Depression ([facility]) Difficulty walking 05/12/23 Eczema 2022 Endometriosis 2015 Fissure, anal Gastroparesis GERD (gastroesophageal reflux disease) 1995 Hormone disorder 2019 Hypertension ([facility]) 2000 Migraine ([facility]) OCD (obsessive compulsive disorder) ([facility] Panic attack ([facility]) 04/28 Rectocele [...] reconstruction FOOT TENDON SURGERY 11/13/2023 HYSTERECTOMY 2015 [facility] INTRAUTERINE DEVICE INSERTION 2013 Mirena OTHER SURGICAL [...] to gross testing, coordination, and gait are normalor at baseline unless noted below. 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 Signature Mario Acevedo D.O. Date 11/12/24 Time 5:00PM. documented in this encounterSt. Louis VA Medical [id number] History of Present illness Narrative* Wendy Colon MA - 10/28/2024 2:30 PM EST Images from the original note [...] to the clinic 4 days status post mold filling operator surgery. Eating a regular diet without difficulty. Bowel movements are normal. The patient is not having anypain. Patient denies swelling, redness, or discharge from [...] Review Audit Reviewed by Nida Toro MA (Custom Shoemaker) on 10/28/24 at 1502 Medication Order Taking? Sig Documenting Provider Last Dose Status Abilifsteven Maintena 300 MG injection syringe [id number] inject INTRAMUSCULARLY ONCE A MONTH (BRING TO OFFICE FOR PROVIDER TO ADMINISTER) Active albuterol HFA 90 mcg/act inhaler [id number] Inhale 2 puffs every 4 (four) hours if needed for wheezing Eliceo Gómez DO 10/19/24 2359 atenolol (Tenormin) 50 MG tablet [id number] Take 1 tablet (50 mg) by mouth Daily Eliceo Gómez DO Active cholecalciferol (Vitamin D-3) 125 MCG (5000 UT) capsule [id number] Take 125 mcg by mouth Daily Dipti Acevedo DO Active colestipol (Colestid) 1 g tablet [id number] Yes Take 1 g by mouth in the morning and 1 g in the evening. Dipti Acevedo DO Active Daridorexant HCl (Quviviq) 50 MG tablet [id number] Take 50 mg by mouth at bedtime Eliceo Gómez DOActive Discontinued 10/22/24 0842 estradiol (Estrace) 0.1 MG/GM vaginal cream [id number] APPLY 0.5G VAGINALLY TWICE WEEKLY. Dipti Acevedo DO Active estradiol (Estrace) 1 MG tablet [id number] Take 1 tablet (1 mg) by mouth Daily Dipti Acevedo DO Active ferrous sulfate 325 (65 Fe) MG tablet [id number] Take 325 mg by mouth every other day Ron King NP Active fluvoxaMINE (Luvox) 50 MG tablet [id number] Take 50 mg by mouth at bedtime Dipti Acevedo DO Active galcanezumab (Emgality) 120 MG/ML auto-injector [id number] Inject 120 mg under the skin every 30 (thirty) days Dipti Acevedo DO Active L-Theanine 200 MG capsule [id number] Take 1 capsule by mouth Daily Carmen Cruz MD Active losartan (Cozaar) 25 MG tablet [id number] Take 1 tablet (25 mg) by mouth Daily Eliceo Gómez DO Active methylphenidate ER (Concerta) 54 MG CR tablet [id number] Take 54 mg by mouth Daily Eliceo Gómez DO Active mirabegron ER (Myrbetriq) 50 MG 24 hr tablet [id number] Take 1 tablet (50 mg) by mouth at bedtime Do not crush, chew, or split. Dipti Acevedo, DO Active omeprazole (PriLOSEC) [address] capsule [id number] Take 40 mg by mouth in the morning. Active Quviviq 25 MG tablet [id number] Yes TAKE 1 TABLET BY MOUTH BEDTIME ( NEEDED) FOR SLEEP Dipti Acevedo, DO Active rOPINIRole (Requip) 1 MG tablet [id number] Take 1 tablet (1 mg) by mouth in the morning. Eliceo Gómez DO Active rOPINIRole (Requip) 2 MG tablet [id number] Take 1 tablet (2 mg) by mouth at bedtime Eliceo Gómez DO Active Trelegy Ellipta 100-62.5-25 MCG/ACT aerosol powder [id number] INHALE 1 PUFF BY MOUTH DAILY Eliceo Gómez DO Active triamcinolone (Kenalog) 0.1 % cream [id number] Apply topically 2 (two) times a day Dipti Acevedo, DO Active Past Medical History: Diagnosis Date ADHD (attention deficit hyperactivity disorder) ([facility]) 1994 Asthma ([facility]) Basal cell carcinoma right chest Colon polyp Compressed cervical disc Cystocele 2021 Depression ([facility]) Difficulty walking 05/12/23 Eczema 2022 Endometriosis 2014 Fissure, anal Gastroparesis GERD (gastroesophageal reflux disease) 1994 Hormone disorder 2018 Hypertension ([facility]) 1999 Migraine ([facility]) OCD (obsessive compulsive disorder) ([facility]) Panic attack ([facility]) 04/28 Rectocele [...] to gross testing, coordination, and gait are normalor at baseline unless noted below. 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 documented in this encounterSt. Louis VA Medical [id number] History of Present illness Narrative* Radha Cardenas MD - 10/23/2024 11:00 AM EST Images from the original note [...] PCP. Loose stools 4-8 times a day Wentworth 6. Occasional BRBPR. Reglan increased diarrhea, does [...] unless otherwise stated inthe HPI. Physicial Exam Smoking Status Never Wt [...] months The patient was seen with Dr. Ledezma. Please see their addendum for further details and additional recommendations. Radha Cardenas M.D. Fellow Physician PGY5 Division of Gastroenterology, Hepatology & Nutrition Department of Internal Medicine [facility] Pager [phone] or Epic Chat with questions * Carmen Peace MA - 10/23/2024 11:00 AM EST This marketing writer verified the patient's name and . * Padmaja Ledezma MD, PhD - 10/23/2024 11:00 AM EST Attending: Padmaja Ledezma MD, PhD Patient was seen and examined [...] supplement. FIB4 0.7. Ferritin 9, iron sat 13%on iron supplement. Hb 12.6. normal TSH. Negative stool O&P. On Omeprazole daily for fdc due to hx of grade D esophagitis, erosive gastropathy and gastroparesis. At interval, persistent loose stool Wentworth type 6 about 5-6 times daily with occasional nocturnal diarrhea and hematochezia. Will follow up with eating disorder on 10/28 for fear of eating and weight gain. Based on clinical course, may repeat gastric emptying test and refer to advanced endoscopy for evaluation of G-POEM if clinically indicated. Repeat hydrogen breath test. Trial of colestipol 1gBID for possible bile acid diarrhea. Will check stool fat, elastase r/o malabsorption. Hemorrhoids on PE. * Tania Donatotina - 10/23/2024 11:00 AM EST Mary Leal was offered and accepted a Medical Buzzsaw Operator Helper for this exam/procedure/test 10/23/2024.Name of Medical Buzzsaw Operator Helper: Tania Riggs documented in this [facility]12-18-2024 Instructions* Patient Instructions* Radha Cardenas MD - 10/23/2024 11:00 AM [...] will either call you, send you a [employer] message, or mail you aletter with the results of your tests within 1-2 weeks after you have completed your tests. If you do not hear from our office, please call the clinic to receive your results at [phone]. As a reminder, [facility] [employer] [address] should not be used as a form of communication that replaces an office visit. It can be used for reminders and clarifications If you need to fax old records in, please fax to [phone]. If you have any concerning symptoms, please seek immediate medical attention. documented [facility]Par[facility] History of Present illness Narrative* Wendy Cooln MA - 10/15/2024 3:30 PM EST Images from the original note were not included. Dipti Acevedo, DO Obstetrics and Gynecology Mary Leal 1970 10/15/24 [id number] Pre Operative Exam Chief Complaint Patient presents [...] Procedure Laterality Date ANTERIOR CRUCIATE LIGAMENT REPAIR 2010 APPENDECTOMY 1988 BACK SURGERY 09/20/2017 C5-6 removed [...] reconstruction FOOT TENDON SURGERY 11/13/2023 HYSTERECTOMY 2014 [facility] BS INTRAUTERINE DEVICE INSERTION 2013 Mirena OTHER SURGICAL HISTORY scar tissue removed from tonsils ROTATOR CUFF REPAIR Right 10/2016 SPINE SURGERY 2017 TONSILLECTOMY 02/11/2021 TUBAL LIGATION Bilateral 2006 Past Medical History: Diagnosis Date ADHD (attention deficit hyperactivity disorder) ([facility]) 1994 Asthma ([facility]) Basal cell carcinoma right chest Colon polyp Compressed cervical disc Cystocele 2021 Depression ([facility]) Difficulty walking 05/12/23 Eczema 2022 Endometriosis 2015 Fissure, anal Gastroparesis GERD (gastroesophageal reflux disease) 1995 Hormone disorder 2019 Hypertension ([facility]) 2000 Migraine ([facility]) OCD (obsessive compulsive disorder) ([facility]) Panic attack ([facility]) 04/28 Rectocele [...] costovertebral angle tenderness, no obvious scoliosis/kyphosis. 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 documented in this encounterSt. Louis VA Medical [id number] Evaluation note* Diagnosis Onset Date Resolution Status Admit Date Cervical radiculopathy acute De cember 2023 8:25am Cervical radiculopathy acute Louis banuelos 2024 1:13pm [facility] Work Phone: 1(322) 895-732111-22-2024 History of Present illness Narrative* Wendy Colon MA - 09/27/2024 11:45 AM EST Images from the original note were not included. Dipti Acevedo, Obstetrics and Gynecology Mary Leal 1970 09/27/24 [id number] Exam Chief Complaint Patient presents with Follow-up [...] reconstruction FOOT TENDON SURGERY 11/13/2023 HYSTERECTOMY 2014 [facility] BS INTRAUTERINE DEVICE INSERTION 2013 Mirena OTHER [...] reflux disease) 1994 Hormone disorder 2019 Hypertension ([facility]) 2000 Migraine ([facility]) OCD (obsessive compulsive disorder) ([facility]) Panic attack ([facility]) 04/28 Rectocele 2021 RLS (restless legs syndrome) Urinary incontinence 2022 Varicella 1984 Visual impairment 2010 ROS See HPI EXAM GENERAL EXAMINATION alert oriented well developed, well nourished. 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 Granulation [...] I made. Signature Mario Acevedo D.O. Date 09/27/24 Time 5:00PM. documented in this encounterSt. Louis VA Medical [id number] History of Present illness Narrative* Ron King [...] after colorectal surgery JOLEEN (generalized anxiety disorder) ([facility]) Headache History of 2019 novel coronavirus disease (COVID-19) Impingement syndrome of right shoulder Increased frequency of urination Lingual tonsil hypertrophy Major depressive disorder, recurrent, moderate ([facility]) Nasal congestion Nausea Partial nontraumatic rupture of right rotator cuff Poor urinary stream Stress incontinence in female Unspecified inflammatory spondylopathy, cervical region ([facility]) Urinary urgency Wheezing Pain due to internal orthopedic prosthetic devices, implants and grafts, initial encounter ([facility]) Belching Past Medical History: Past Medical History: Diagnosis Date ADHD (attention deficit hyperactivity disorder) ([facility]) 1994 Asthma ([facility]) Basal cell carcinoma right chest Colon polyp Compressed cervical disc Cystocele 2021 Depression ([facility]) Difficulty walking 05/12/23 Eczema 2022 Endometriosis 2015 Fissure, anal Gastroparesis GERD (gastroesophageal reflux disease) 1994 Hormone disorder 2019 Hypertension ([facility]) 2000 Migraine ([facility]) OCD (obsessive compulsive disorder) ([facility]) Panic attack ([facility]) 04/28 Rectocele [...] 10 min Stress: Stress Concern Present (05/01/2024) [employer] - Occupational Stress Questionnaire Feeling of Stress : Rather much Social Connections: Socially Isolated (05/01/2024) Social Connection and Isolation Panel [NHANES] Frequency of Communication with Friends and Family: More than three times a week Frequency of Social Gatherings with Friends and Family: More than three times a week Attends Scientologist Services: Never Active Member of Clubs or Organizations: No Attends Club or Organization Meetings: Never Marital Status: Intimate Partner Violence: Not At Risk (06/23/2023) [facility] [place] Safety Threatened: Not on file Insulted: Not [...] or fail to improve. documented in this encounterSt. Louis VA Medical [id number] History of Present illness Narrative* Wendy Colon MA - 09/24/2024 8:15 AM EST Images from the original note were not included. Dipti Acevedo, DO Obstetrics and Gynecology Mary Leal 1970 09/24/24 [id number] Exam Chief Complaint Patient presents with Gynecologic [...] reconstruction FOOT TENDON SURGERY 11/13/2023 HYSTERECTOMY 2015 [facility] BS INTRAUTERINE DEVICE INSERTION 2013 Mirena OTHER SURGICAL HISTORY scar tissue removed from tonsils ROTATOR CUFF REPAIR Right 10/2016 SPINE SURGERY 2017 TONSILLECTOMY 02/11/2021 TUBAL LIGATION Bilateral 2006 Past Medical History: Diagnosis Date ADHD (attention deficit hyperactivity disorder) (CMS/HCC) 1994 Asthma ([facility] [...] anicteric. EARS: no obvious hearing deficit. FEMALE GENITOURINARY:javascript web developer in room -hymnal defect, estradiol cream in [...] Date 09/24/24 Time 5:00PM. documented in this [facility]11-11-2024 Evaluation note* Diagnosis Onset Date Resolution Status Admit Date Cervical radiculopathy acute No vember 2023 2:53pm Cervical radiculopathy acute De cember 2023 8:25am [facility] Work Phone: 1(455) 836-707211-11-2024 Evaluation note* Diagnosis Onset Date Resolution Status Admit Date Cervical radiculopathy acute No vember 2023 2:53pm Cervical radiculopathy acute De cember 2023 8:25am Cervical radiculopathy acute [facility] 2024 1:13pm [facility] Work Phone: 1(323) 438-953210-30-2024 History of Present illness Narrative* Wendy Colon MA - 09/04/2024 3:15 PM EDT Images from the original note were not included. Dipti Acevedo, DO Obstetrics and Gynecology Mary Zoya Elvis 1970 09/04/24 [id number] Exam Chief Complaint Patient presents with Follow-up [...] reconstruction FOOT TENDON SURGERY 11/13/2023 HYSTERECTOMY 2014 [facility] BS INTRAUTERINE DEVICE INSERTION 2012 Mirena OTHER [...] reflux disease) 1995 Hormone disorder 2019 Hypertension ([facility]) 1999 Migraine ([facility]) OCD (obsessive compulsive disorder) [place] Panic attack ([facility]) 04/28 Rectocele 2021 RLS (restless legs syndrome) Urinary incontinence 2022 Varicella 1984 Visual impairment 2009 ROS See HPI EXAM GENERAL EXAMINATION alert oriented well developed, well nourished. HEAD: normocephalic atraumatic. EYES: sclera anicteric. EARS: no obvious hearing deficit. FEMALE GENITOURINARY:javascript web developer in room -Erythema, and edema- chronic inflammatory [...] Date 09/04/24 Time 5:00PM. documented in this encounterSt. Louis VA Medical [id number] History of Present illness Narrative* Ron King, HOSPITAL CNA - 09/04/2024 2:40 PM EDT Images from [...] after colorectal surgery JOLEEN (generalized anxiety disorder) ([facility]) Headache History of 2018 novel coronavirus disease (COVID-19) Impingement syndrome of right shoulder Increased frequency of urination Lingual tonsil hypertrophy Major depressive disorder, recurrent, moderate ([facility]) Nasal congestion Nausea Partial nontraumatic rupture of right rotator cuff Poor urinary stream Stress incontinence in female Unspecified inflammatory spondylopathy, cervical region ([facility]) Urinary urgency Wheezing Pain due to internal orthopedic prosthetic devices, implants and grafts, initial encounter ([facility]) Belching Past Medical History: Past Medical History: Diagnosis Date ADHD (attention deficit hyperactivity disorder) ([facility]) 1994 Asthma ([facility]) Basal cell carcinoma right chest Colon polyp Compressed cervical disc Cystocele 2021 Depression ([facility]) Difficulty walking 05/12/23 Eczema 2022 Endometriosis 2015 Fissure, anal Gastroparesis GERD (gastroesophageal reflux disease) 1994 Hormone disorder 2019 Hypertension ([facility]) 2000 Migraine ([facility] OCD (obsessive compulsive disorder) ([facility]) Panic attack ([facility]) 04/28 Rectocele [...] reconstruction FOOT TENDON SURGERY 11/13/2023 HYSTERECTOMY 2015 [facility] INTRAUTERINE DEVICE INSERTION 2013 Mirena OTHER SURGICAL [...] 10 min Stress: Stress Concern Present (05/01/2024) [employer] - Occupational Stress Questionnaire Feeling of Stress : Rather much Social Connections: Socially Isolated (05/01/2024) Social Connection and Isolation Panel [NHANES] Frequency of Communication with Friends and Family: More than three times a week Frequency of Social Gatherings with Friends and Family: More than three times a week Attends Scientologist Services: Never Active Member of Clubs or Organizations: No Attends Club or Organization Meetings: Never Marital Status: Intimate Partner Violence: Not At Risk (06/23/2023) [facility] [place] Safety Threatened: Not on file Insulted: Not [...] (around 10/02/2024) for PRN. documented in this encounterSt. Louis VA Medical [id number] History of Present illness Narrative* Tania Riggs - 08/07/2024 9:00 AM EDT This MA verified patients name and . * Radha Cardenas MD - 08/07/2024 9:00 AM EDT Images from the original note were not included. GASTROENTEROLOGY CLINIC FOLLOW-UP VISIT Referring Provider for today's consult: Padmaja Ledezma MD, PhD Primary Care Provider: Shannon Gómez Chief Complaint Patient presents with Follow-up 6 months follow-up History of Present Illness Mary Leal is a 54 y.o. female w/ hx of gastroparesis, pelvic dyssynergia, ADHD, chronic constipation s/p subtotal colectomy, who presents today to the [facility] for chronic abdominal pain, bloating, [...] four hours. Ms. Leal sees a local glazier structural glass. She is worried about parasites with the loose stools, and SIBOdue to bloating. Ms. Leal has a history of severe reflux esophagitis but is not currently taking PPI she stopped due to concerns of side effects. She is taking an over the counter supplement root extract recommended by her local glazier structural glass. She does not take a multivitamin. Last [...] with food. She feels better at this drafter geophysical weight and is afraid to eat for weight gain, not due to her symptoms. She is not currently following with glazier structural glass or counselor and is open to both. [...] subtotal colectomy, who presents today to the [facility] for chronic abdominal pain, bloating, [...] time The patient was seen with Dr. Ledezma. Please see their addendum for further details and additional recommendations. Radha Cardenas M.D. Fellow Physician PGY5 Division of Gastroenterology, Hepatology & Nutrition Department of Internal Medicine [facility] Pager [phone] or Epic Chat with questions * Padmaja Ledezma MD, PhD - 08/07/2024 9:00 AM EDT Attending: Padmaja Ledezma MD, PhD Patient was seen and examined [...] Negative stool O&P. Continue Omeprazole daily for fdc due to hx of grade D esophagitis, erosive gastropathy and gastroparesis. Refer to nutrition and psychology (fear of eating). Continue current medications. Based on clinical course, may repeat gastric emptying test and refer to advanced endoscopy for evaluation of G-POEM if clinically indicated. documented in this encounterParma [facility]10[facility] Instructions* Patient Instructions* Radha Cardenas MD - 08/07/2024 9:00 AM EDT It was a pleasure to see you today. The following are your instructions: - referral to GI specific title officer, will request video/telephone visit for you - referral to psychology to help you heal your relationship with food - continue omeprazole, vitamin D, and iron repletion - repeat H2 breath testing as able If you had labs drawn, I or my team will either call you, send you a [employer] [address] message, or mail you aletter with the results of your tests within 1-2 weeks after you have completed your tests. If you do not hear from our office, please call the clinic to receive your results at [phone]. As a reminder, [facility] [employer] [address] should not be used as a form of communication that replaces an office visit. It can be used for reminders and clarifications If you need to fax old records in, please fax to [phone]. If you have any concerning symptoms, please seek immediate medical attention. documented in this encounterMERLYNU [facility] History of Present illness Narrative* Eliceo Gómez, [...] prosthetic devices, implants and grafts, initial encounter ([facility]) Belching Past Medical History: Past Medical History: Diagnosis Date ADHD (attention deficit hyperactivity disorder) [place] Basal cell carcinoma right chest Colon polyp Compressed cervical disc Cystocele 2021 Depression ([facility]) Difficulty walking 05/12/23 Eczema 2022 Endometriosis 2015 Fissure, anal Gastroparesis GERD (gastroesophageal reflux disease) 1994 Hormone disorder 2018 Hypertension [place] 1999 Migraine [place]) OCD (obsessive compulsive disorder) [place] Panic attack ([facility]) 04/28 Rectocele 2021 RLS (restless [...] reconstruction FOOT TENDON SURGERY 11/13/2023 HYSTERECTOMY 2014 [facility] BS INTRAUTERINE DEVICE INSERTION 2013 Mirena OTHER [...] 10 min Stress: Stress Concern Present (05/01/2024) [place] [employer] of Occupational Health - Occupational Stress Questionnaire Feeling of Stress : Rather much Social Connections: Socially Isolated (05/01/2024) Social Connection and Isolation Panel [NHANES] Frequency of Communication with Friends and Family: More than three times a week Frequency of Social Gatherings with Friends and Family: More than three times a week Attends Scientologist Services: Never Active Member of Clubs or Organizations: No Attends Club or Organization Meetings: Never Marital Status: Intimate Partner Violence: Not At Risk (06/23/2023) Received from [place] [facility] Safety Threatened: Not on file Insulted: [...] and/or persist despite treatment. - nystatin (Mycostatin) [id number] UNIT/ML suspension; Take 5 mL (500,000 Units) [...] mouth every other day, Disp: , Rfl: Fwuelhqmods-Gygapsstp-Vrjdhx 100-62.5-25 MCG/ACT aerosol powder , Inhale 1 [...] 90 tablet, Rfl: 1 documented in this encounterSt. Louis VA Medical [id number] NoteSLEEP/NEUROLOGY CLINIC FOLLOW-UP EVALUATION Date of Evaluation: [...] regarding sleep. She eventually was evaluated at [facility] sleep [facility] with Dr. Sherman and had sleep study [...] was also evaluated at sleep medicine at [facility], and saw Dr. Yoni Tuttle on 10/14/2022. She was subsequently started on auto-CPAP 5-15 cm H2O with nasal mask in December 2022. She uses the CPAP for about a week, and had severe intolerance and felt suffocated. She had severe pressure and mask intolerance, and despite changes in masks and pressure settings she was not able to tolera (more content not included)...[facility] 07-11-2024 History of Present illness Narrative* Eliceo [...] cystitis Genitourinary syndrome of menopause Incontinence Migraine ([facility]/H[facility]) CHUCKIE (obstructive sleep apnea) Other fatigue Overactive [...] after colorectal surgery JOLEEN (generalized anxiety disorder) ([facility]) Headache History of 2019 novel coronavirus disease (COVID-19) Impingement syndrome of right shoulder Increased frequency of urination Lingual tonsil hypertrophy Major depressive disorder, recurrent, moderate (HCC) ([facility]) Nasal congestion Nausea Partial nontraumatic rupture of right rotator cuff Poor urinary stream Stress incontinence in female Unspecified inflammatory spondylopathy, cervical region (CMS/HCC) Urinary urgency Wheezing Pain due to internal orthopedic prosthetic devices, implants and grafts, initial encounter ([facility]) Belching Past Medical History: Past Medical History: Diagnosis Date ADHD (attention deficit hyperactivity disorder) (CMS/HCC) 1994 Asthma ([facility]) Basal cell [...] 10 min Stress: Stress Concern Present (05/01/2024) [place] [employer] of Occupational Health - Occupational Stress Questionnaire Feeling of Stress : Rather much Social Connections: Socially Isolated (05/01/2024) Social Connection and Isolation Panel [NHANES] Frequency of Communication with Friends and Family: More than three times a week Frequency of Social Gatherings with Friends and Family: More than three times a week Attends Scientologist Services: Never Active Member of Clubs or Organizations: No Attends Club or Organization Meetings: Never Marital Status: Intimate Partner Violence: Not At Risk (06/23/2023) [place] [facility] Safety Threatened: Not on file Insulted: [...] SM ANTIBODY <1.0 NEG <1.0 NEGATIVE AI SM/BENCH HAND ANTIBODY <1.0 NEG <1.0 NEGATIVE AI SJOGREN'S [...] Gastroparesis Mild intermittent asthma, unspecified whether complicated ([facility]) Patient advised to return if symptoms worsen and/or persist despite treatment.improved significantly, continue current treatment - albuterol HFA 90 mcg/act inhaler; Inhale 2 puffs every 4 (four) hours if needed for wheezing - Xxfeqcldjss-Mugrxugkq-Wmdfra 100-62.5-25 MCG/ACT aerosol powder ; Inhale 1 [...] nightly x 2 weeks then twice per weel, Disp: , Rfl: ferrous sulfate 325 (65 Fe) MG tablet, Take 325 mg by mouth every other day, Disp: , Rfl: Ingjsybiwgv-Xsrovhrzd-Kyzhfi (Trelegy Ellipta) 100-62.5-25 MCG/ACT aerosol powder , Inhale, Disp: ,Rfl: Jmvamxndvdd-Ivdjviqnw-Rgensk 100-62.5-25 MCG/ACT aerosol powder , Inhale 1 [...] Disp: 30 tablet, Rfl: 11 nystatin (Mycostatin) [id number] UNIT/ML suspension, Take 5 mL by mouth [...] Daily, Disp: , Rfl: documented in this encounterSt. Louis VA Medical [id number] History of Present illness Narrative* Sidney Amezquita [...] and follow-up if needed. documented in this encounterSt. Louis VA Medical [id number] Telephone encounter Note* Telephone Encounter - Serenity Joseph MA - 06/12/2024 2:19 PM EDT LDH=11/30/22 MEREDITH=10/11/22 Patient will need a follow up appointment For future refills [facility]08-07-2024 Miscellaneous Notes* Telephone Encounter - Serenity Joseph MA - 06/12/2024 2:19 PM EDT LDH=11/30/22 MEREDITH=10/11/22 Patient will need a follow up appointment For future refills documented in this encounterUk [facility]07-[facility]2024 Miscellaneous Notes* Telephone Encounter - Sandip Chavira [...] Patient also is switching pharmacies[facility] [address] [place] [address] * Telephone Encounter - Carmen Barkley RN [...] and maintenance dose. Prior auth submitted to [facility] via [facility]. [place]: [id number] documented in [facility] encounter[facility] Telephone encounter Note* Telephone Encounter - Sandip [...] Patient also is switching pharmacies: [facility] [address] [place] [address] [facility]-09-2024 Telephone encounter Note* Telephone Encounter - Carmen Barkley RN - 05/14/2024 8:15 AM EDT Added new pharmacy to patient's chart. Please advise on medication changes. [facility]07-09-2024 Telephone encounter Note* Telephone Encounter - Pauline Christensen MD - 05/14/2024 8:15 AM EDT Yes, ok to switch to Emgalty- she will need loading dose of 120 mg x 2 injections = 240 mg for the first month, and afterwards 120 mg Q4 weeks maintenance. Thanks [facility] tweetTV [id number] Telephone encounter Note* Telephone Encounter - Carmen Barkley RN - 05/14/2024 8:15 AM EDT Orders placed for review and signature by physician for Emgality loading and maintenance dose. Prior auth submitted to [facility] via [facility]. [place]: [id number] [facility]06-23-2024 NoteQuality of life Answer each question by shading in the [place] completely. Choose only one answer for each [...] 70 75 80 85 90 95 100 [facility]Mer[facility]06-[facility]-2024 NoteEpworth Sleepiness Scale Please rate [...] Problems: There are no active Hospital Problems. [facility]06-12-2024 Note Attestation signed by Grant Biswas, PhD at 04/18/2024 10:57 AM I have read and agree with the associate media planner's documentation and treatment summary. Please note there [...] PhD (electronically signed on 04/17/2024 at 8:49 AM)[facility]06-07-2024 Nurse Note* Nursing Notes - Stacie Johns RN - 04/12/2024 12:45 PM EDT Dilated LES to 20mm with balloon, held for [address] Franco [facility]06-07-2024 Miscellaneous Notes* Nursing Notes - Stacie Johns [...] monitoring per anesthesia. documented in this encounterOSU [facility]06-07-[facility] Nurse Note* Nursing Notes - Stacie Johns RN - 04/12/2024 12:41 PM EDT Dilated pylorus to 20mm with balloon, held for [address] Franco[address] [facility]06-[facility] History and physical note* Milagros Franco MD, PhD - 04/12/2024 12:30 PM EDT ENDOSCOPIC PREPROCEDURE HISTORY AND PHYSICAL HISTORY OF PRESENT ILLNESS: Mary Leal is a 53 y.o. female seen in the pre-procedure area at [facility]. The indication for endoscopic evaluation includes: River grade D esophagitis Early satiety Unintentional weight [...] Anesthesia Care. Milagros Franco MD, PhD [facility] Work Phone: 1(716) 364-595406-07-2024 History and physical note* Milagros Franco MD, PhD - 04/12/2024 12:30 PM EDT ENDOSCOPIC PREPROCEDURE HISTORY AND PHYSICAL HISTORY OF PRESENT ILLNESS: Mary Leal is a 53 y.o. female seen in the pre-procedure area at [facility]. The indication for endoscopic evaluation includes: River grade D esophagitis Early satiety Unintentional weight [...] Franco MD, PhD documented in this encounterOSU [facility]06-07-2024 Nurse Note* Sae Kaur RN - 04/12/2024 12:30 PM EDT 1316- Family/solid waste truck driver arrived to recovery bay. RN provided and reviewed discharge instructions to patient and daughter. Verbalized understanding. All questions answered. 1326- Patient ambulated off ASC unit independently with solid waste truck driver. documented in this encounterOSU [facility]06-07-2024 Nurse Surgical operation note* Sae Kaur RN - 04/12/2024 12:30 PM EDT 1316- Family/solid waste truck driver arrived to recovery bay. RN provided and reviewed discharge instructions to patient and daughter. Verbalized understanding. All questions answered. 1326- Patient ambulated off ASC unit independently with solid waste truck driver. [facility]06-07-[facility] Nurse Note* Nursing Notes - Stacie Johns RN - 04/12/2024 12:12 PM EDT Sedation, vital signs, airway, and monitoring per anesthesia. [facility]05-29-2024 Note Attestation signed by Pauline Christensen MD at 04/03/2024 4:16 PM I personally saw and examined the patient on the same date of service as resident/fellow Dr. Dumont. I discussed the findings and therapeutic plan with the resident/fellow . I agree with the documentation, except for any edits/updates below. Teaching Physician's Revisions: None Pauline Christensen MD. Audit Manager of Neurology and Sleep Medicine [facility] SLEEP/NEUROLOGY CLINIC FOLLOW-UP EVALUATION Date of Evaluation: [...] regarding sleep. She eventually was evaluated at [facility] sleep [place] with Dr. Sherman and had sleep study [...] we referred her to (more content not included)...[facility] 03-14-2024 Telephone encounter Note* Telephone Encounter - [...] Rx has been sent. Jacquelin Lowery RN [facility]05-09-2024 Miscellaneous Notes* Telephone Encounter - Jacquelin Lowery [...] sent. Jacquelin Lowery RN documented in this encounterUk Healthcare2024 NoteHNO ID: [id number] Author: FLOWER LOPEZ APRN.FBI SPECIAL AGENT Service: ? Author Type: Nurse Practitioner Type: [...] intermittently- somewhat improved. She has worked with [employer] rep re: interstim setting, now on program [...] you received about pain medications helpful? Yes Buzzsaw Operator Helper offered:Patient declines OBJECTIVE: BP 146/93 Pulse 62 [...] notes 65% improvement s/p (more content not included)...[facility]2024 History of Present illness Narrative* Flower Lopez APRN.FBI SPECIAL AGENT - 02/27/2024 10:00 AM EDT Female Pelvic Medicine & Reconstructive Surgery Post-Op Visit Mary Lael is a 53 year old female who [...] intermittently- somewhat improved. She has worked with [employer] rep re: interstim setting, now on program [...] you received about pain medications helpful? Yes Buzzsaw Operator Helper offered:Patient declines OBJECTIVE: BP 146/93 Pulse 62 [...] understanding. Flower Lopez APRN.CNP documented in this encounterUk Healthcare04-16-2024 Miscellaneous Notes* Telephone Encounter - Denisse Truong [...] 20, 2024 7:32 AM documented in this encounterUk Healthcare04-07-2024 NoteHNO ID: [id number] Author: LISSA DOYLE APRN.KWESI Service: ? Author Type: Nurse Practitioner Type: Progress Notes Filed: 02/11/2024 15:16 Note Text: Visit cancelled. Patient checked into express care online system for My ongoing yeast infection. I've tried 3 Diflucan. . Connected to visit, advised PCP or local Express/Urgent Care in person evaluation. Patient verbalized understanding and comfortable with plan. Nontoxic appearance. Lissa Doyle APRN.KWESIMercy Health [facility] Hospital04-07-2024 History of Present illness Narrative* Lissa Doyle APRN.CNP - 02/11/2024 3:14 PM EDT Visit cancelled. Patient checked into express care online system for My ongoing yeast infection. I've tried 3 Diflucan. . Connected to visit, advised PCP or local Express/Urgent Care in person evaluation. Patient verbalized understanding and comfortable with plan. Nontoxic appearance. Lissa Doyle APRN.CNP documented in this encounterUk Healthcare04-03-2024 NoteSLEEP/NEUROLOGY CLINIC FOLLOW-UP EVALUATION Date of Evaluation: [...] a second opinion from sleep medicine at [facility], and saw Dr. Yoni Tuttle on 10/14/2022. [...] regarding sleep. She eventually was evaluated at [facility] sleep center with Dr. Sherman and [...] would like to av (more content not included)...[facility]03-23-2024 Miscellaneous Notes* Telephone Encounter - Radha Dunham MD - 01/27/2024 10:44 AM EDT Drawer In Jacquard Loom Resident Telephone Encounter 01/27/2024 10:44 AM Call [...] pain. Informed patient she can call her [employer] rep Monday. Will send telephone encounter to [...] Discussed with Dr. Mullins Urogyn fellow physician industrial conveyor belt repairer. Radha Dunham MD Obstetrics and Gynecology, PGY1 documented in this encounterUk Healthcare03-21-2024 History and physical note * Max Marroquin PA-C - 01/25/2024 9:00 AM EDT PREANESTHESIA CONSULT CLINIC TELEHEALTH VISIT SERVICE DATE: 01/25/2024 SERVICE TIME: 9:02 AM Patient has been identified by name and date of : Yes Reason for contact: PACC visit Accompanied by: Self This is a virtual visit using [employer] Zoom Video Visit. It required patient- provider interaction for the medical decision making as documented below. I have communicated my name and active licensure. The patient's identity and physical location wereverified at the time of this visit. Either the patient or their legal construction sales representative has been informed of the [...] using inspire to get activated 02/07/2024 ) [id number] Score: Age: <65 Sex: female CHF history: No Hypertension history: Yes Stroke/TIA/thromboembolism history: No Vascular disease history: No Diabetes history: No [id number] Score: 2 ANESTHESIA FINDINGS: Intubation History: No [...] the AM and 2 mg PM Yes rjpftdubwsj-acdpswhfe-vamqzqrt (TRELEGY ELLIPTA) 100-62.5-25 mcg Inhale 1 Puff [...] fevers. Neuro: No history of TIA's, stroke, ETHYLBENZENE OXIDIZER tumor, impaired sensorium, hemiplegia, paraplegia or quadraplegia. No neurological symptoms or problems. Respiratory: CHUCKIE and asthma Negative for Bronchitis, COPD, Pneumonia within 6 weeks (date), URI < 2 weeks Negative for cough, wheezing or shortness of breath. Negative for hemoptysis. Cardiovascular: HTN Negative for Recent TN, CAD, CHF Negative for chest pain, orthopnea, [...] 01/25/2024 TIME: 9:02 AM documented in this encounterUk Healthcare03-19-2024 Instructions* Patient Instructions* Max Marroquin PA-C - 01/23/2024 3:50 PM EDT PATIENT PREOPERATIVE INSTRUCTIONS Pam Wang MD has scheduled you for your procedure at this surgery center: [facility] [place] Scheduling Office: [phone] --[address] [place] [address]. Arrival Time for Surgery: - To obtain your arrival time for surgery, call your physician's office the day before your surgery. - If your surgery is scheduled for Monday, call the Monday before. Your surgeon s pipe welder will tell you what time to call the office. - If you have not reached the departmental pipe welder by 5 P.M., call [phone] after 5 P.M. the day before your [...] Procedures: - YOU MUST HAVE A RESPONSIBLE BOATING SAFETY OFFICER TAKE YOU HOME. A EMPLOYEE DEVELOPMENT DIRECTOR OR ROLLER PICKER CANNOT BE MADE A RESPONSIBLE BOATING SAFETY OFFICER. - We recommend that a responsible person stays with you overnight to take care of you. - You cannot stay in a hotel alone after outpatient surgery. You will not be permitted to have yoursurgery, if you do not have someone to take care of you. If you already have an Advance Directive, please fax a copy to [phone] or email to for it to be [...] day. Max Marroquin PA-C documented in this encounterUk Healthcare03-18-2024 NoteHNO ID: [id number] Author: LEV THOMPSON LPN Service: ? Author Type: LICENSED NURSE Type: Progress Notes Filed: 01/25/2024 09:48 Note Text: DATE OF SERVICE: 01/25/2024 PROBLEM: Mary Leal presents for pre-op teaching. PRE-OP DIAGNOSIS: urinary urgency SCHEDULED SURGERY AND DATE: 01-26-24 [facility] INSRT NSTIM GENERATOR BLADDER W/ POCKET [...] patient have an advanced directive: No Does [facility] have a copy of the patient's advanced [...] prescribed by anesthesia, internal medicine, surgeon, or HOSPITAL CNA Stop NSAIDs, Aspirin (ASA), vitamins, herbal supplements, [...] jewelry, body piercing, makeup, contacts, lotions, nail albanian on fingers, or anything in hair on arrival to surgery Wear low healed shoes and loose fitting clothing Leave all valuables at home or with a family member Directions to [facility] Parking/parking validation on the day prior to [...] if after hours patient instructed to call gauge machine operator and ask for industrial conveyor belt repairer mold filling operator resident. DENISA program offered to patient: Yes [...] None Educator: Lev Thompson LPN [facility] History of Present illness Narrative* Lev Thompson LPN - 01/22/2024 11:22 AM EDT DATE OF SERVICE: 01/25/2024 PROBLEM: Mary Leal presents for pre-op teaching. PRE-OP DIAGNOSIS: urinary urgency SCHEDULED SURGERY AND DATE: 01-26-24 [facility] INSRT NSTIM GENERATOR BLADDER W/ POCKET [...] patient have an advanced directive: No Does [facility] have a copy of the patient's advanced [...] prescribed by anesthesia, internal medicine, surgeon, or HOSPITAL CNA Stop NSAIDs, Aspirin (ASA), vitamins, herbal supplements, [...] jewelry, body piercing, makeup, contacts, lotions, nail albanian on fingers, or anything in hair on arrival to surgery Wear low healed shoes and loose fitting clothing Leave all valuables at home or with a family member Directions to [facility] Parking/parking validation on the day prior to [...] patient, if after hours patientinstructed to call gauge machine operator and ask for industrial conveyor belt repairer mold filling operator resident. DENISA program offered to patient: Yes [...] None Educator: Lev Thompson LPN [facility] [place] documented in this encounterUk Healthcare03-18-2024 Instructions* Patient Instructions* Lev Thompson LPN - 01/22/2024 11:22 AM EDT UROGYNECOLOGY PHYSICIAN CONTACT INFORMATION During business hours, these numbers connect to your doctor s office. During the evening and weekends, these numbers will connect you to the answering service to speak with the doctor industrial conveyor belt repairer. Dr. Pam Wang After hours phone number: or toll free Ask the gauge machine operator to page the 'mold filling operator industrial conveyor belt repairer.' Surgery Scheduling Office: Call the day before [...] vitamin E, herbal medications, diet pills, and npns-kxh-ksxbica medications. Tylenol (acetaminophen) is okay. I will not wear jewelry, body piercing(s), makeup, nail albanian, hairpins, or contacts on the day ofsurgery. [...] my surgeon. Discuss medication changes with your hospital cna or primary care physician as well. If I stopped taking my blood-thinning medication, I will ask the surgeon when to resume taking it. If I am an outpatient, a responsible person will drive me home and it was suggested that someone stay with me for 24 hours. I understand that a business analysis professional or cabdriver is NOT a responsible caregiver. [...] time for surgery, I must call my policy writer sales after 2pm the day before surgery. PREOP INSTRUCTIONS THE DAY OF SURGERY/CHECK IN Report to DESK J1-9 for surgery. A map is located in Your Surgical Guide Book. The online version of the surgical guide book can be found at: [email or web address] The address is [address] [place] [address] INFECTION PREVENTION Please notify your doctor if [...] Your Surgical Guide Book for more information. [facility] TEAM At the [facility], we have a multidisciplinary team of caregivers that includes fellows, residents, nurse practitioners, physician assistants, clinical nurse specialists, nurses, medical assistants, patient care nursing assistants, social workers, case management associate and many others. We all have different [...] MyChart for post-surgery concerns. documented in this encounterUk [facility]03-06-2024 History of Present illness Narrative* Cullen Dawkins MD - 01/10/2024 12:45 PM EST [facility] - ENT [address] [place] [address], [address] [facility] [id number] SUBJECTIVE: Patient ID (1970): Mary Leal is [...] carcinoma (BCC) of chest 04/04/2023 Bipolar disorder ([facility]) Chronic interstitial cystitis 04/06/2023 Chronic sinusitis [...] 03/20/2020 Performed by Noman Mayo MD at [facility] EGD, DILATATION N/A 09/25/2020 Performed by Noman Mayo MD at [facility] ENDOSCOPIC DIAGNOSTIC DRUG INDUCED SLEEP Bilateral 09/19/2023 Performed by Cullen Dawkins MD at [facility] SURGERY FOOT SURGERY 06/25/2020 left foot surgery FOOT SURGERY Right 10/2022 and 05/2023 HYSTERECTOMY 2015 LASER LINGUAL TONISILLECTOMY Circumferential 07/08/2021 Performed by Alexei Avila MD PhD at [facility] MRI FOOT LEFT NECK SURGERY 2017 PLANTAR FASCIECTOMY RELEASE PHARYNGEAL SCAR CPT 93353 Circumferential 07/08/2021 Performed by Alexei Avila MD PhD at [facility] RESECTION SUBMUCOSAL NASAL Bilateral 02/11/2021 Performed by Alexei Avila MD PhD at [facility] ROTATOR CUFF REPAIR Right SEPTOPLASTY Circumferential 02/11/2021 Performed by Alexei Avila MD PhD at [facility] TONSILLECTOMY Bilateral 02/11/2021 Performed by Alexei Avila MD PhD at [facility] TOTAL COLECTOMY 03/2022 uvuloplasty N/A 02/11/2021 Performed by Alexei Avila MD PhD at [facility] Family History Problem Relation Age of [...] in the morning. Indications: gastroesophageal reflux disease. zlfmephblpp-dzedenetx-hvofutvu (TRELEGY ELLIPTA) 100-62.5-25 mcg blister with device [...] 2.5 mg 2.5 mg nebulization PRN Gwendolyn Stroud, DANN-FBI SPECIAL AGENT REVIEW OF SYSTEMS: Review of Systems Data [...] this chart were generated using voice recognition [employer] dictation software. Although every effort was made to ensure the accuracy of this automated hardware engineering manager, some errors in hardware engineering manager may have occurred. Iam Siddiqi 01/10/24 0753 documented in this encounterSelect [facility] Instructions* Patient Instructions* Cullen Dawkins MD - [...] care. The instructions to gain access to [employer] are at the bottom of this summary. If you are not signed up for access to MY CHART and have not received notification of ANY test result within 7 days, please call [phone] to leave a request for your results. [...] Ultrasound, MRI or PET scan, please call [facility] Scheduling at [phone]. If you need to be scheduled for surgery, please call Aiden Augustin Surgery Coordinator at [phone], or Lazara at [phone] or our main number [phone] if you have not received a return [...] (and medications that contain aspirin): Many non-prescription (etgn-gfj-wlbmtdq or OTC) medications contain aspirin. If you are unsure whether a medication you take has aspirin, please ask your pharmacist or your surgeon's office. You must ask your surgical team if they want you to continuetaking, or stop taking aspirin before your procedure. Medications containing aspirin that should be stopped 7 days before surgery: Juliet-[place] Anacin Aspirin Fiorinal Ascriptin Carlos Bufferin Lortab [...] L-carnosine Licorice Kava kava Milk thistle Multivitamin [place]-3 Resveratrol Skullcap [facility] wort Vitamin E Adipex (phentermine) Glenn (orlistat) Hydroxycut Garcinia Cambogia Raspberry Ketones Qgfldbtu-I-90 should be stopped 14 days before surgery You will receive specific instructions regarding your insulin and anti-coagulant/anti-platelet medications (if applicable). documented in this encounterSelect [facility]-21-2024 Miscellaneous Notes* Telephone Encounter - Aiden Augustin - 12/27/2023 10:12 AM EST PATIENT NOTIFIED WITH SURGERY TIME OF 11:00. TOLD TO ARRIVE 2 HOURS PRIOR. documented in this [facility]02-21-2024 Telephone encounter Note* Telephone Encounter - Aiden Augsutin - 12/27/2023 10:12 AM EST PATIENT NOTIFIED WITH SURGERY TIME OF 11:00. TOLD TO ARRIVE 2 HOURS PRIOR. [facility] tweetTV [id number] Miscellaneous Notes* Telephone Encounter - Stacie Gonzalez RN - 12/25/2023 3:02 PM EST See MC message A message has been routed to the provider Closing Stacie Stuckert, RN * Telephone Encounter - Denisse Mcintyre [...] distance health visit in this department: 10/25/2021 Community Association Manager, Nurse Next visit in this department: 01/25/2024 documented in this encounterUk Healthcare02-14-2024 History and physical note * Vilma Sutton APRN-FBI SPECIAL AGENT - 12/20/2023 11:45 AM EST PRE-ADMISSION TESTING HISTORY AND PHYSICAL EXAM DATE: 12/20/23 PCP: ELICEO GÓMEZ JR, DO CHIEF COMPLAINT: CHUCKIE (obstructive sleep apnea) HISTORY OF PRESENT ILLNESS: Mary Leal, a 53 y.o. White or female, presents to [facility] for a pre- surgical H&P for a planned insertion of hypoglossal nerve stimulator. She complains of CHUCKIE. She states she was diagnosed about 5 years ago. She has been unable to tolerate the Cpap. PAST MEDICAL HISTORY: Past Medical History: Diagnosis Date ADD (attention deficit disorder) Allergic rhinitis 11/16/2015 Anxiety Asthma Atopic dermatitis 04/09/2020 Basal cell carcinoma (BCC) of chest 04/04/2023 Bipolar disorder ([facility]) Chronic interstitial cystitis 04/06/2023 Chronic sinusitis [...] 03/20/2020 Performed by Noman Mayo MD at [facility] EGD, DILATATION N/A 09/25/2020 Performed by Noman Mayo MD at [facility] ENDOSCOPIC DIAGNOSTIC DRUG INDUCED SLEEP Bilateral 09/19/2023 Performed by Cullen Dawkins MD at [facility] FOOT SURGERY 06/25/2020 left foot surgery FOOT SURGERY Right 10/2022 and 05/2023 HYSTERECTOMY 2015 LASER LINGUAL TONISILLECTOMY Circumferential 07/08/2021 Performed by Alexei Avila MD PhD at [facility] MRI FOOT LEFT NECK SURGERY 2017 PLANTAR FASCIECTOMY RELEASE PHARYNGEAL SCAR CPT 88658 Circumferential 07/08/2021 Performed by Alexei Avila MD PhD at [facility] RESECTION SUBMUCOSAL NASAL Bilateral 02/11/2021 Performed by Alexei Avila MD PhD at [facility] ROTATOR CUFF REPAIR Right SEPTOPLASTY Circumferential 02/11/2021 Performed by Alexei Avial MD PhD at [facility] TONSILLECTOMY Bilateral 02/11/2021 Performed by Alexei Avila MD PhD at [facility] TOTAL COLECTOMY 03/2022 uvuloplasty N/A 02/11/2021 Performed by Alexei Avila MD PhD at [facility] FAMILY HISTORY: Family History Problem Relation [...] Indications: gastroesophageal reflux disease., Disp: , Rfl: dxtcfwaapnq-vqssmbgpg-qywlieae (TRELEGY ELLIPTA) 100-62.5-25 mcg blister with device, [...] 2.5 mg, nebulization, PRN, Gwendolyn Nicole Stroud, OUTBOUND SUPERVISOR-FBI SPECIAL AGENT REVIEW OF SYSTEMS: Review of Systems Constitutional: [...] the most recent lab values available in [facility] at the time ofthe office visit and additional labs may have been drawn since that time. ASSESSMENT / DIAGNOSIS: CHUCKIE (obstructive sleep apnea) PLAN: Mary Leal is scheduled for Insertion Stimulator Nerve Hypoglossal - Right with Dr. Dawkins on01/02/2024. STELLA Duron 12/20/23 1240 [facility] History and physical note* STELLA Duron - 12/20/2023 11:45 AM EST PRE-ADMISSION TESTING HISTORY AND PHYSICAL EXAM DATE: 12/20/23 PCP: ELICEO GÓMEZ JR, DO CHIEF COMPLAINT: CHUCKIE (obstructive sleep apnea) HISTORY OF PRESENT ILLNESS: Mary Leal, a 53 y.o. White or female, presents to [facility] for a pre- surgical H&P for a [...] 03/20/2020 Performed by Noman Mayo MD at [facility] EGD, DILATATION N/A 09/25/2020 Performed by Noman Mayo MD at [facility] ENDOSCOPIC DIAGNOSTIC DRUG INDUCED SLEEP Bilateral 09/19/2023 Performed by Cullen Dawkins MD at [facility] FOOT SURGERY 06/25/2020 left foot surgery FOOT SURGERY Right 10/2022 and 05/2023 HYSTERECTOMY 2015 LASER LINGUAL TONISILLECTOMY Circumferential 07/08/2021 Performed by Alexei Avila MD PhD at [facility] MRI FOOT LEFT NECK SURGERY 2017 PLANTAR FASCIECTOMY RELEASE PHARYNGEAL SCAR CPT 35772 Circumferential 07/08/2021 Performed by Alexei Avila MD PhD at [facility] RESECTION SUBMUCOSAL NASAL Bilateral 02/11/2021 Performed by Alexei Avila MD PhD at [facility] ROTATOR CUFF REPAIR Right SEPTOPLASTY Circumferential 02/11/2021 Performed by Alexei Avila MD PhD at [facility] TONSILLECTOMY Bilateral 02/11/2021 Performed by Alexei Avila MD PhD at [facility] TOTAL COLECTOMY 03/2022 uvuloplasty N/A 02/11/2021 Performed by Alexei Avila MD PhD at [facility] FAMILY HISTORY: Family History Problem Relation [...] Indications: gastroesophageal reflux disease., Disp: , Rfl: exqmnedhzic-ulpopmhsa-yiwjsiko (TRELEGY ELLIPTA) 100-62.5-25 mcg blister with device, Inhale 1 puffin the morning., Disp: 60 each, Rfl: 5 fremanezumab-vfrm (MISSION TherapeuticsOVY AUTOINJECTOR) 225 mg/1.5 mL, inject 1 AND [...] mg, 2.5 mg, nebulization, PRN, Gwendolyn Stroud, OUTBOUND SUPERVISOR-FBI SPECIAL AGENT REVIEW OF SYSTEMS: Review of Systems Constitutional: [...] the most recent lab values available in [facility] at the time ofthe office visit and additional labs may have been drawn since that time. ASSESSMENT / DIAGNOSIS: CHUCKIE (obstructive sleep apnea) PLAN: Mary Leal is scheduled for Insertion Stimulator Nerve Hypoglossal - Right with Dr. Dawkins on01/02/2024. STELLA Duron 12/20/23 1240 documented in this encounterSelect [facility]02-14-2024 Instructions* Patient Instructions* Earlene Whalen RN - 12/20/2023 11:45 AM EST Your surgery/procedure is scheduled at [facility] on 01/02/2024 Arrival Time Surgeon will call [facility] Address: [address] [place] [address], [address] [place] [address] in the Emergency Center Parking lot. Report to the front line leader in the Emergency/Surgery Registration lobby of the hospital. Please call Pre-Admission Clinic at [phone] if you have any questions prior to surgery. For questions the morning of surgery, please call the Pre-op Department at [phone]. Notify your SURGEON if you develop any [...] would like to schedule therapy at a [facility] Re[facility] facility, please call [phone] ([phone]). Do not use lotions, creams, powders, perfume, make up, cologne or after-shaves day of surgery. Remove ALL jewelry including wedding rings, body piercings, hair extensions that contain metal, nail albanian, make-up, and contact lens. You may brush your teeth the morning of surgery, but do not swallow the water. Wear your dentures and partial plates to the hospital (no adhesive). Shower the night the before. If applicable, use the CHG (chlorhexidine gluconate) soap or wipes. Please be advised, [facility] has transitioned to a cashless payment [...] RESPONSIBILITIES As a patient at [facility], you have the right to: Receive medical care and be informed of who is taking care of you Be treated with dignity and respect Have a family member/construction sales representative of choice and your physician notified of your admission Receive information and actively participate in decisions about your care and treatment Refuse care, treatment and services Decide who may provide your support and speak for you Access zoroastrian and spiritual services Participate in ethical issues [...] of hospital charges and payment methods Patient/patient construction sales representative responsibilities are to: Provide information [...] surgery in clean clothes. documented in this encounterSelect [facility]01-16-2024 NoteHNO ID: [id number] Author: PAM WANG MD Service: ? Author [...] my personal performance and is accurate and complete.[facility]01-03-2024 Miscellaneous Notes* Telephone Encounter - Emily Zamora - 11/08/2023 3:40 PM EST NURTEC PENDING WITH TEJADA [id number] documented in this encounterSelect [facility]-2024 Telephone encounter Note* Telephone Encounter - Emily Zamora - 11/08/2023 3:40 PM EST NURTEC PENDING WITH TEJADA [id number] [facility] [id number] NoteHNO ID: [id number] Author: Pam Wang MD Service: ? Author [...] Video-assisted cystourethroscopy was performed using a 19 Iranian 70 and 30 degree rigid cystoscope with [...] and urethra PLAN: See progress note from todayMer[facility]12-05-2023 NoteHNO ID: [id number] Author: Pam Wang MD Service: ? Author [...] PFSH obtained by others. Pam Wang MD Buzzsaw Operator Helper offered: Patient declines. OBJECTIVE: BP 102/60 General: [...] would like to move forward with PNE. Posto7 packet given to patient today to review. [...] which included preparing to see the patient, eesr-mz-tqyn patient care, completing clinical documentation, obtaining and/or reviewing separately obtained history, performing a medically appropriate examination, counseling and educating the patient/family/caregiver, and communicating with other HCP (more content not included)...[facility]11-27-2023 Miscellaneous Notes * Telephone Encounter - Hardik [...] 150 MG TABLET MEREDITH: 09/27/2023 Doris Arias APRN.[facility] ([facility]) ASSESSMENT: Mary Leal is a 53 year old female with: (R35.0) Urinary frequency (primary encounter diagnosis) (B37.31) Beyt vaginitis PLAN: - Discussed r/b/a of empirical [...] w/ Dr. Pam Wang documented in this encounterUk Healthcare11-22-2023 NoteHNO ID: [id number] Author: Doris Arias APRN.FBI SPECIAL AGENT Service: ? Author Type: Nurse Practitioner Type: [...] urination is normal and pressure with urinating PRESIDENT CEO & FOUNDER: denies abnormal vaginal bleeding, no vaginal discharge [...] Making Level: 3 - Low Doris Arias APRN.[facility]11-22-2023 Miscellaneous Notes * Telephone Encounter - Lex [...] which included preparing to see the patient, xjbm-qg-pbfn patient care, completing clinical documentation, obtaining and/or [...] Office will call to schedule cystoscopy. Urogynecology [facility] Main provided: Pam Wang Staff Physician, Department of Urogynecology and Pelvic Floor Disorders Worsening frequency and urgency of urination. Is a urine culture indicated? Please review/advise Lex Vieyra RN documented in this encounterUk Healthcare11-06-2023 NoteHNO ID: [id number] Author: Jairon Lai MD Service: ? Author Type: Physician Type: Progress Notes Filed: 09/11/2023 1:18 PM Note Text: [facility] [...] Pdet to void lower flow Jairon Lai [facility]11-06-2023 NoteHNO ID: [id number] Author: Phil Beckford MD Service: ? Author [...] benefit from sling incision +/- discussion of [facility]10-07-2023 Emergency department Note* Avelino Scott RN - 08/12/2023 7:35 AM EDT Discharge, follow up, referral, and prescription information reviewed and explained; all questions and concerns addressed. Patient A/Ox3 in NAD, resp. easy unlabored upon discharge, escorted to exit by staff. [facility]10-07-2023 Emergency department Note* Avelino Scott RN - [...] gastroparesis, gastroenteritis, acute cholecystitis, pancreatitis, less likely TN The patient's initial and delta troponin are negative. EKG does not demonstrate any ischemic changes. Low suspicion for TN. Her urinalysis is negative for UTI. Urine [...] follow-up. She was instructed to call her flight software test engineer and PCP to schedule follow-up appointments. She was instructed to return to the emergency department if she has any new or worsening symptoms. Patient agreeable plan of care. Return precautions discussed at bedside. Spoke with Dr. Salmon regarding patient. Physician to complete their own physical exam and evaluation. Collaboration performed between this FIRE SPRINKLER APPARATUS INSPECTOR and physician regarding patient's plan of care. [...] following orders were created for panel order [place] Draw. Procedure Abnormality Status --------- ------ Gold Top[[id number]] Final result LIGHT BLUE TOP[[id number]] Final result Dark Green Top[[id number]] Final result Please view results for these tests on the individual orders. GOLD TOP LIGHT BLUE TOP DARK GREEN TOP TROPONIN I Records reviewed: Urogynecology telemedicine visit 08/07/2023 ENT visit 07/11/2023 Family medicine visit 07/06/2023 Lev Ritter APRN FBI SPECIAL AGENT 08/12/23 0723 * Jaren Lopez RN - 08/12/2023 4:21 AM EDT Emily at bedside * Moisés Duke RN - 08/12/2023 12:24 AM EDT Ambulates to triage with C/O sudden epigastric gnawing, burning pain that woke her from sleep. Alsoreports wheezing. States nausea. Denies fever. Alert. Respirations easy and unlabored. Skin PWD. NAD noted. documented in this [facility]10-07-2023 Hospital Discharge instructions* Discharge Instructions* Lev Ritter [...] sent through Care Everywhere. * Abdominal Pain (Niuean Belizean) documented in this [facility]10-07-2023 Emergency department Note* Monserrat Scales RN - 08/12/2023 7:05 AM EDT Report to Les GAMBINO [facility]10-07-2023 Physician Emergency department Note* Lev Ritter APRN [...] gastroparesis, gastroenteritis, acute cholecystitis, pancreatitis, less likely TN The patient's initial and delta troponin are negative. EKG does not demonstrate any ischemic changes. Low suspicion for TN. Her urinalysis is negative for UTI. Urine [...] follow-up. She was instructed to call her flight software test engineer and PCP to schedule follow-up appointments. She was instructed to return to the emergency department if she has any new or worsening symptoms. Patient agreeable plan of care. Return precautions discussed at bedside. Spoke with Dr. Salmon regarding patient. Physician to complete their own physical exam and evaluation. Collaboration performed between this FIRE SPRINKLER APPARATUS INSPECTOR and physician regarding patient's plan of care. [...] following orders were created for panel order [place] Draw. Procedure Abnormality Status --------- ------ Gold Top[[id number]] Final result LIGHT BLUE TOP[[id number]] Final result Dark Green Top[[id number]] Final result Please view results for these tests on the individual orders. GOLD TOP LIGHT BLUE TOP DARK GREEN TOP TROPONIN I Records reviewed: Urogynecology telemedicine visit 08/07/2023 ENT visit 07/11/2023 Family medicine visit 07/06/2023 Lev Ritter APRN FBI SPECIAL AGENT 08/12/23722 [facility]10-07-2023 Emergency department Note* Jaren Lopez RN - 08/12/2023 4:21 AM EDT Emily at bedside [facility]10-07-2023 Emergency department Triage note* Moisés Duke RN - 08/12/2023 12:24 AM EDT Ambulates to triage with C/O sudden epigastric gnawing, burning pain that woke her from sleep. Alsoreports wheezing. States nausea. Denies fever. Alert. Respirations easy and unlabored. Skin PWD. NAD noted. [facility]10-02-2023 NoteHNO ID: [id number] Author: Pam Wang MD Service: ? Author [...] in symptoms. After her visit with Nelsy Katya, she stopped Mirabegron and has not noticed any difference. 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 She has no history of an abnormal mammogram with cysts on US LMP: No LMP recorded. Patient has had a hysterectomy.; Menopause 3 years ago; hysterectomy in 2015: Menstrual history: NA; Deliveries: I have confirmed and edited as necessary, the PFSH obtained by others. Pam Wang MD Buzzsaw Operator Helper offered: Patient declines. OBJECTIVE (Virtual) There were [...] which included preparing to see the patient, ybwm-am-kygp patient care, completing clinical documentation, obtaining and/or reviewing separately obtained history, counseling and educating the patient/family/caregiver, ordering medications, tests, or procedures, and communicating with other HCPs (not separately reported). Pam Wang, [facility]09-25-2023 NoteHNO ID: [id number] Author: Nelsy Chávez APRN.FBI SPECIAL AGENT Service: ? 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 She has no history of an abnormal mammogram with cysts on US LMP: No LMP recorded. Patient has had a hysterectomy.; Menopause 3 years ago; hysterectomy in 2015: Menstrual history: NA; Deliveries: I have confirmed and edited as necessary, the PFSH obtained by others. Nelsy Chávez APRN.FBI SPECIAL AGENT Buzzsaw Operator Helper offered: Patient declines. 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 She has no history of an abnormal mammogram with cysts on US LMP: No LMP recorded. Patient has had a hysterectomy.; Menopause 3 years ago; hysterectomy in 2015:Menstrual history: NA; Deliveries: I have confirmed and edited as necessary, the PFSH obtained by others. Nelsy Chávez APRN.FBI SPECIAL AGENT Buzzsaw Operator Helper offered: Patient declines. OBJECTIVE: There were no [...] which included preparing to see the patient, hkkx-yn-ysvc patient care, completing clinical documentation, performing a medically appropriate examination, counseling and educating the patient/family/caregiver and ordering medications, tests, or procedures. documented in this encounterUk [facility]06-21-2023 Evaluation note* Encounter Date Diagnosis Assessment Notes [...] note writ ten by Wanda Yang LPN, Charging Board Operator. Edited and approved by Dr. Beto Snyder MD. [place] [employer] Other 06-06-2023 Miscellaneous Notes* Telephone Encounter - Serenity Joseph MA - 04/11/2023 10:19 AM EDT MEREDITH=10/11/22 Spoke with patient she does need a refill Medication pended please file Rx request if appropriate Patient and pharmacy verified documented in this encounterUk Healthcare05-15-2023 Miscellaneous Notes* Telephone Encounter - Regina Philippe - 03/20/2023 2:50 PM EDT Should patient follow up via virtual visit to discuss further? * Telephone Encounter - Steffi Ross LPN - 03/20/2023 10:20 AM EDT Patient's stool tests came back normal. Steffi Ross LPN documented in this encounterUk Healthcare04-18-2023 NotePROCEDURE: XR ANKLE RT MIN 3 VIEWS, [...] Electronically authenticated by: ZAIDA ACOSTA Date: 2023-02-21 10:15[facility]04-18-2023 NotePROCEDURE: XR ANKLE RT MIN [...] Electronically authenticated by: ZAIDA ACOSTA Date: 2023-02-21 10:15[facility]03-28-2023 NotePROCEDURE: XR FOOT RT MIN 3 [...] Electronically authenticated by: ZAIDA ACOSTA Date: 2023-01-31 11:55[facility]03-16-2023 Miscellaneous Notes* Telephone Encounter - Jennie Moreno RN - 01/19/2023 2:17 PM EDT Please review and advise patient. documented in this encounterUk Healthcare03-13-2023 Miscellaneous Notes* Telephone Encounter - Mounika Roberto PA-C - 01/16/2023 1:08 PM EDT Patient was scheduled for virtual PACC appt at 1300 today. Patient did not check in for visit. Called patient at [phone] to see if they needed any assistance logging in and left voicemail. This message routed to PACC schedulers to contact patient to reschedule PACC appt. Mounika Roberto PA-C January 16, 2023 1:09 PM documented in this encounterUk Healthcare03-13-2023 History and physical note * Mounika Roberto PA-C - 01/16/2023 1:00 PM EDT This is a virtual visit using [employer] video visit. It required patient-provider interaction for themedical decision making as documented below. I have communicated my name and active licensure. The patient's identity and physical location wereverified at the time of this visit. Either the patient or their legal construction sales representative has been informed of the risks and benefits of and alternatives to treatment through a remote evaluation and consents to proceed with the evaluation remotely. Surgeon: Winston Hannah DO Type of surgery: GEN SURG: POP Patient scheduled for surgery on 02/08/23 . Surgery Location: [facility] Diagnosis: Preop examination (primary encounter [...] in the AM and 4 mg PM wzscyuwnlmf-kkgodjgtf-lojvqtjp (TRELEGY ELLIPTA) 100-62.5-25 mcg Inhale 1 Puff [...] 16, 2023 12:36 PM documented in this encounterUk Healthcare03-13-2023 Instructions* Patient Instructions* Mounika Roberto PA-C - 01/16/2023 12:38 PM EDT PATIENT PREOPERATIVE INSTRUCTIONS Winston Hannah DO has scheduled you for your procedure at this surgery center: [facility]: [phone] -- [facility], [facility] [address]. Please read below carefully for your personalized [...] Procedures: - YOU MUST HAVE A RESPONSIBLE BOATING SAFETY OFFICER TAKE YOU HOME. A EMPLOYEE DEVELOPMENT DIRECTOR OR ROLLER PICKER CANNOT BE MADE A RESPONSIBLE BOATING SAFETY OFFICER. - We recommend that a responsible person [...] Advance Directive, please fax a copy to [phone] or email to for it to be [...] day. Mounika Roberto PA-C documented in this encounterUk Healthcare03-08-2023 Miscellaneous Notes* Telephone Encounter - Berta Ann RN - 01/11/2023 9:47 AM EST Procedure pended for 02/08/23. Pt aware of need for PACC. Pre-op instructions reviewed, will send to pt's MC, per pt request. Postop appt scheduled. No other questions at this time. Berta HENSON, RN Specialty Promotions Specialist documented in this encounterUk Healthcare03-07-2023 History of Present illness Narrative* Winston Hannah, - 01/10/2023 9:09 AM EST Images from the original note were not included. Digestive Disease & Surgery [place] Gastroparesis/Dysmotility Follow Up This encounter was provided via two-way, live video teleconferencing within the guidelines of stateolean general hospitalensure rules for new and established patients. The [...] of care. NAME: Mary Leal CLINIC NO: [id number] CHIEF COMPLAINT Idiopathic Gastroparesis HISTORY OF PRESENT [...] Normal gastric transit Normal small bowel transit [id number] transit in the distal bowel consistent delay [...] (FLONASE) 50 mcg/actuation nasal spray Use 1 [place] in each nostril once daily. carBAMazepine XR [...] THE LUNGS every 4 hours if needed dxhmuqwtbrx-fterqkohl-nlvzlvle (TRELEGY ELLIPTA) 100-62.5-25 mcg Inhale 1 Puff [...] dialysis. No history of symptoms or problems. PRESIDENT CEO & FOUNDER: Negative for abnormal vaginal bleeding, abnormal vaginal [...] and plan of care. documented in this encounterUk Healthcare02-23-2023 Miscellaneous Notes* Addendum Note - Yoni Tuttle MD - 12/29/2022 3:37 PM ESTAddended by: YONI TUTTLE MD on: 12/29/2022 03:37 PM Modules accepted: Orders documented in this encounterUk Healthcare02-20-2023 History of Present illness Narrative* Rosmery Booker, [...] 26, 2022 3:17 PM documented in this encounterUk Healthcare02-17-2023 Miscellaneous Notes* Telephone Encounter - Erica Serrano RN - 12/23/2022 4:36 PM EST Message being addressed in another encounter that was forwarded to provider documented in this encounterUk Healthcare02-16-2023 History of Present illness Narrative* Winston Hannah, - 12/22/2022 8:52 AM EST Images from the original note were not included. Dig[facility]ive Disease [facility] Surgery [place] Gastroparesis/Dysmotility Follow Up This encounter was provided [...] completed esophagram NAME: Mary Leal CLINIC NO: [id number] CHIEF COMPLAINT Idiopathic Gastroparesis HISTORY OF PRESENT [...] chicken spaghetti etc. Duration of symptoms (months): 9968-0851 Weight changes in last 3 months: Stable [...] Normal gastric transit Normal small bowel transit [id number] transit in the distal bowel consistent delay [...] (FLONASE) 50 mcg/actuation nasal spray Use 1 [place] in each nostril once daily. carBAMazepine XR [...] THE LUNGS every 4 hours if needed prudxffzqhf-cxxrclqdx-qwhxioft (TRELEGY ELLIPTA) 100-62.5-25 mcg Inhale 1 Puff [...] dialysis. No history of symptoms or problems. PRESIDENT CEO & FOUNDER: Negative for abnormal vaginal bleeding, abnormal vaginal [...] and plan of care. documented in this encounterUk Healthcare02-15-2023 NotePROCEDURE: XR FOOT RT MIN 3 VIEWS [...] Electronically authenticated by: ZAIDA ACOSTA Date: 2022-12-21 12:24[facility]02-09-2023 History of Present illness Narrative* Mary [...] in the AM and 4 mg PM ecgkzzpoxiu-koxetzoww-nsilztrt (TRELEGY ELLIPTA) 100-62.5-25 mcg Inhale 1 Puff [...] which included preparing to see the patient, euft-ud-cszx patient care, completing clinical documentation, obtaining and/or reviewing separately obtained history, counseling and educating the patient/family/caregiver, ordering medications, quincy ts, or procedures, communicating with other HCPs (not separately reported), independently interpreting results (not separately reported), communicating results to the patient/family/caregiver, and care coordination (not separately reported). Mary Obrien MD Colorectal Surgery documented in this encounterUk Healthcare02-08-2023 Miscellaneous Notes* Telephone Encounter - Emily Benton RN - 12/14/2022 5:19 PM EST Several attempts to reach pt unsuccessful - MC sent. * Telephone Encounter - Barber Marie - 12/02/2022 8:39 AM EST SLEEP PHONE Name of caller: Mary Leal Relationship to patient : Self In-state or ryl-yb-ikxtk patient: In-State Was permission obtained from patient? Yes Patient identified by Name and Date of . ( Mary D Elvis, 1970). Yes Reason for Call : Patient said her and Emily was chatting through my chart and Emily calledher about 5:15 yesterday. Number to return call [phone] Okay to leave a message ? Yes Last office visit 10/14/[address] Kusum vines Next office visit 01/13/[address] Tuttle virtual documented in this encounterUk Healthcare02-06-2023 Miscellaneous Notes* Telephone Encounter - Jet Wong [...] and follow up testing return call to [phone] documented in this encounterUk Healthcare02-03-2023 Miscellaneous Notes* Telephone Encounter - MALAIKA Rosales [...] patient Summary: As noted Concerns: Procedure results Promotions Specialist plan for next outreach: Will follow up Signature Nelsy Gilmore RN December 08, 2022 documented in this encounterUk Healthcare01-30-2023 Nurse Note* Lisa Contreras RN - 12/05/2022 1:05 PM EST [facility] ENDOSCOPY PRE PROCEDURE CALL Akiko. I'm calling from [facility] endoscopy to provide you with the information for your surgery/procedure tomorrow. 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 tbd What is the best number for your solid waste truck driver to be reached at tomorrow for updates? tbd Your solid waste truck driver is allowed to wait here [...] given Any barriers to Patient learning (confusion? Relocation Associate needed?): Patient/Patient Senior Product Development Engineer responded appropriately on phone. If patient needs to reschedule please call: [phone] [facility] phone number: [phone] Type of instruction given: Verbal by telephone contact. documented in this encounterUk Healthcare01-27-2023 Nurse Note* Isra Harman RN - 12/02/2022 10:48 AM EST [facility] ENDOSCOPY PRE PROCEDURE CALL Akiko. I'm calling from [facility] endoscopy to provide you with the information for your surgery/procedure tomorrow. Spoke to: Patient CONFIRM Procedure Planned with patient: Are you familiar with where [facility] is located?yes Address [facility] Patient instructed to enter through the main 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 Rich What is the best number for your solid waste truck driver to be reached at tomorrow for updates? [phone] Your solid waste truck driver is allowed to wait here [...] must be done on Monday.) Did you hand picker your bowel prep pt calling office [...] given Any barriers to Patient learning (confusion? Relocation Associate needed?): Patient/Patient Senior Product Development Engineer responded appropriately on phone. If patient needs to reschedule please call: [phone] [facility] phone number: [phone] Type of instruction given: Verbal by telephone contact. documented in this encounterUk Healthcare01-26-2023 NotePROCEDURE: XR FOOT RT MIN 3 VIEWS, [...] Electronically authenticated by: ZAIDA ACOSTA Date: 2022-12-01 11:42[facility]01-26-2023 NotePROCEDURE: XR FOOT RT MIN 3 [...] Electronically authenticated by: ZAIDA ACOSTA Date: 2022-12-01 11:42[facility]01-25-2023 History of Present illness Narrative* Isra [...] in the AM and 4 mg PM habhirqfvbp-fczlfgwko-olpgnknb (TRELEGY ELLIPTA) 100-62.5-25 mcg Inhale 1 Puff [...] no edema RESPIRATORY: No dyspnea : neg PRESIDENT CEO & FOUNDER: neg The remainder of the review of [...] Isra Masters DO 11/30/2022 documented in this encounterUk Healthcare01-19-2023 Miscellaneous Notes* Telephone Encounter - Erica Serrano RN - 11/24/2022 3:20 PM EST This concern was addressed in the phone encounter on 11/24/22. Patient was called back and informed [employer] will complete Prior Authorization for her sleep study. documented in this encounterUk Healthcare01-19-2023 Miscellaneous Notes* Telephone Encounter - Erica Serrano [...] Relationship to patient : Self In-state or dtb-ef-zdwrv patient: In-State Was permission obtained from patient? Yes Patient identified by Name and Date of . ( Mary Keys Elvis, 1970). Yes Reason for Call : Patient stated she spoke to her insurance and they told her that the provider need to call Deuce to see if a PA is needed for the PAP Titration. Number to return call [phone] Okay to leave a message ? Yes Last office visit 10/14/[address] Tuttle virtual Next office visit None documented in this encounterUk Healthcare01-19-2023 History of Present illness Narrative* Isra Masters DO - 11/24/2022 8:29 AM EST Images from the original note were not included. SmartPill Test Report - [id number] Test start date: 11/17/2022 10:03 AM Urology Physician: josephine Interpretation date: 11/24/2022 Ordering physician: Isra Masters DO Referring physician: Patient Information Name: Denver Lealjose Feldman. ID: [id number] date: 1970 Height ft. in.: 5' 4 [...] Normal gastric transit Normal small bowel transit 77th10wpy transit in the distal bowel consistent delay post anastomosis Signature _Dr. Masters Date _11/24/2022 documented in this encounterUk Healthcare01-17-2023 Miscellaneous Notes* Telephone Encounter - Regina Philippe - 11/22/2022 3:37 PM EST Patient calling to verify that Smart Pill monitor was received at [facility]. Monitor was sent via Fed [employer] on 11/19/22. Patient is requesting a confirmation. documented in this encounterUk Healthcare01-16-2023 Miscellaneous Notes* Telephone Encounter - Erica Serrano RN - 11/21/2022 9:11 AM EST [employer] message sent to patient. Prior Sleep study forwarded to to review, Order pended for PAP-titration for provider to review and sign if necessary. documented in this encounterUk Healthcare01-16-2023 History and physical note * Yodit Back PA-C - 11/21/2022 8:00 AM EST PREANESTHESIA CONSULT CLINIC TELEHEALTH VISIT Patient has been identified by name and date of : Yes This is a virtual visit using [employer] [address] video visit. It require patient-provider interaction for [...] in the AM and 4 mg PM zgvtohmxxdt-qengowsnj-neqrusgp (TRELEGY ELLIPTA) 100-62.5-25 mcg Inhale 1 Puff as instructed once daily. No current facility-administered medications for this visit. COVID VACCINATION STATUS: Fully vaccinated REVIEW OF SYSTEMS: Pain Assessment: General: No weight loss, malaise or fevers. Neuro: No history of TIA's, stroke, ETHYLBENZENE OXIDIZER tumor, impaired sensorium, hemiplegia, paraplegia or quadraplegia. [...] requiring medication, no history of angina, CHF, TN, cardiac surgery or stents. Denies rest pain, gangrene or revascularization/amputation for PVD. No history of cardiovascular symptoms or problems. + HLD GI: See HPI : No history of dysuria, frequency or incontinence,, stones or chronic kidney disease PRESIDENT CEO & FOUNDER: Negative for abnormal vaginal bleeding, abnormal vaginal [...] 8:07 AM PAGER/CONTACT #: documented in this encounterUk Healthcare01-12-2023 Miscellaneous Notes* Addendum Note - Yoni Tuttle [...] - 11/02/2022 12:33 PM EST Received from [facility] Report via fax. 8 pages indexed to chart. documented in this encounterUk Healthcare01-12-2023 History of Present illness Narrative* Annmarie Gillespie [...] complete. You will be wearing a Data Insurance Producer around your neck like a necklace during the test. You must keepthis near you at all times. The Data Insurance Producer has an EVENT button. You will be [...] is inside your body. Return the Data Insurance Producer to the [facility] after your test is completed. Brittanie Gillespie RN documented in this encounterUk Healthcare01-09-2023 NotePROCEDURE: XR FOOT RT MIN 3 VIEWS [...] Electronically authenticated by: ZAIDA ACOSTA Date: 2022-11-14 10:39[facility]01-05-2023 NotePROCEDURE: XR FOOT RT MIN 3 [...] Electronically authenticated by: NICKI DACOSTA Date: 2022-11-10 11:44[facility]01-05-2023 Miscellaneous Notes* Telephone Encounter - Annmarie Gillespie RN - 11/10/2022 9:07 AM EST Telephoned patient with SmartPill procedure appointment reminder/instructions. Brittanie Gillespie RN documented in this encounterUk Healthcare01-04-2023 Miscellaneous Notes* Telephone Encounter - Regina Philippe [...] to make it legit. documented in this encounterUk Healthcare01-04-2023 Miscellaneous Notes* Telephone Encounter - Wali Doll - 11/09/2022 9:47 AM EST SENT PATIENTS RX TO PREFERRED LOCATION [facility] [phone] Wali Doll CMA documented in this encounterUk Healthcare01-03-2023 Miscellaneous Notes* Telephone Encounter - Regina Philippe - 11/08/2022 11:15 AM EST Per Soumya in provider services at [facility]. No prior auth is needed,coverage is active, patient can proceed with Smart Pill. Placed a new referral. Call Ref # [id number] * Telephone Encounter - Regina Philippe - 11/02/2022 3:51 PM EST Spoke with patient. Smart Pill is a covered benefit. Sent email to Smart Pill pipe welder and [facility] to assist in scheduling Smart Pill [...] procedure, she can call Earlene Martin at [phone]. documented in this encounterUk Healthcare12-19-2022 Miscellaneous Notes* Telephone Encounter - Steffi Ross [...] calling: self Call patient at: at home [phone] (home) [phone] (cell) Closing statement: Symptom Call: Thank you for calling [facility], your call is very important. A nurse will call in approximately 2-4 hours during business hours. If this is an emergency, please contact 911. Nati Martinez documented in this encounterUk Healthcare12-13-2022 Miscellaneous Notes* Telephone Encounter - Brooklyn Valle LPN - 10/18/2022 2:43 PM EST Requested Prescriptions Pending Prescriptions Disp Refills Dexlansoprazole 60 mg CpDM [Pharmacy Med Name: DEXLANSOPRAZOLE DR 60 MG CAP] 30 capsule 5 Sig: take 1 capsule by mouth before breakfast Patient last seen 10/11/2022 documented in this encounterUk Healthcare12-12-2022 NotePROCEDURE: XR FOOT RT MIN 3 VIEWS, [...] Electronically authenticated by: NICKI DACOSTA Date: 2022-10-17 18:06[facility]12-12-2022 NotePROCEDURE: XR FOOT RT MIN 3 [...] Electronically authenticated by: NICKI DACOSTA Date: 2022-10-17 18:06[facility]12-12-2022 Miscellaneous Notes* Telephone Encounter - Wali Doll - 10/17/2022 9:17 AM EST Faxed order, office notes, demographics, and sleep study to: DME name: [facility] fax: [phone] [facility] ph: ALSO SENT A REQUEST FOR PTS PSG FROM [facility] [place] documented in this encounterUk Healthcare12-06-2022 History of Present illness Narrative* Isra Masters, [...] (FLONASE) 50 mcg/actuation nasal spray Use 1 [place] in each nostril once daily. carBAMazepine XR (TEGRETOL XR) 400 mg 12 hr tablet Take 400 mg by mouth q 12 HR. ARIPiprazole (ABILIFY) 30 mg tablet Take 30 mg by mouth once daily. albuterol HFA (PROVENTIL HFA, VENTOLIN HFA) 90 mcg/actuation inhaler inhale 2 puffs by mouth INTO THE LUNGS every 4 hours if needed ofwmykgozku-wwpjhslmv-etvaknvy (TRELEGY ELLIPTA) 100-62.5-25 mcg Inhale 1 Puff [...] no edema RESPIRATORY: No dyspnea : neg PRESIDENT CEO & FOUNDER: neg The remainder of the review of [...] Isra Masters DO 10/11/2022 documented in this encounterUk Healthcare12-05-2022 Evaluation note* Encounter Date Diagnosis Assessment Notes [...] for rotator cuff healing or recurrent tear [facility] Other 12-01-2022 Evaluation note* Encounter Date Diagnosis [...] note writ ten by Wanda Yang LPN, Charging Board Operator. Edited and approved by Dr. Beto Snyder MD. [employer] Other 11-17-2022 Evaluation note* Encounter Date Diagnosis [...] educated regarding the risks and benefits of fdc opioid use. She understands the associated risks [...] note writ ten by Lupillo Amezquita MA, Charging Board Operator. Edited and approved by Dr. Beto Snyder MD. [facility] Other 11-17-2022 Evaluation note* Encounter Date Diagnosis Assessment Notes Treatment Notes Treatment Clinical Notes Sep, Lumbosacral spondylosis without myelopathy (ICD-10 - M47.817) [facility] Other 11-09-2022 Evaluation note* Encounter Date Diagnosis [...] note writ ten by Wanda Yang LPN, Charging Board Operator. Edited and approved by Dr. Beto Snyder MD. [employer] Other 09-21-2022 NotePROCEDURE: XR ANKLE RT MIN 3 VIEWS, XR FOOT RT MIN 3 VIEWS COMPARISON: 01/06/2021 HISTORY: Pain of right ankle joint FINDINGS: BONES:Remote osteotomy head of the first metatarsal fixed with a single screw. No acute fracture or dislocation. SOFT TISSUES:Negative. No visible soft tissue swelling. EFFUSION:None visible. OTHER: Negative. IMPRESSION: No acute abnormality Electronically authenticated by: NICKI DACOSTA Date: 2022-07-27 19:[address] [place], [place] [id number] NotePROCEDURE: XR ANKLE RT MIN 3 VIEWS, XR FOOT RT MIN 3 VIEWS COMPARISON: 01/06/2021 HISTORY: Pain of right ankle joint FINDINGS: BONES:Remote osteotomy head of the first metatarsal fixed with a single screw. No acute fracture or dislocation. SOFT TISSUES:Negative. No visible soft tissue swelling. EFFUSION:None visible. OTHER: Negative. IMPRESSION: No acute abnormality Electronically authenticated by: NICKI DACOSTA Date: 2022-07-27 19:[address] [place], [place] [id number] Miscellaneous Notes* Telephone Encounter - Silvia Ybarra - 07/26/2022 2:56 PM EDT PA for Dexlansoprazole initiated electronically. Awaiting response [employer] ID# [id number] * Telephone Encounter - Tracy ANDRES - 07/26/2022 1:43 PM EDT Patient needs a prior authorization Medication Order name: Dexlansoprazole 60 mg CpDM Medication: DEXLANSOPRAZOLE 60 MG CAPSULE,BIPHASE DELAYED RELEASE [[id number]] Dispense as Written: No documented in this encounterUk Healthcare09-20-2022 History of Present illness Narrative* Mary Obrien [...] in the AM and 4 mg PM jkkjsgqbwut-jhjpgcjaj-koynrqqc (TRELEGY ELLIPTA) 100-62.5-25 mcg Inhale 1 Puff [...] (FLONASE) 50 mcg/actuation nasal spray Use 1 [place] in each nostril once daily. carBAMazepine XR [...] which included preparing to see the patient, monv-fv-znbl patient care, completing clinical documentation, obtaining and/or reviewing separately obtained history, performing a medically appropriate examination, counseling and educating the pat ient/family/caregiver, ordering medications, tests, or procedures, and care coordination (not separately reported). Mary Obrien MD Colorectal Surgery documented in this encounterUk Healthcare09-20-2022 Nurse Note* Re Sierra MA - 07/26/2022 11:12 AM EDT What is the reason for your visit today? Established patient presents for post op. Who is your referring physician? Are you having poor oral intake? NO Have you had unintentional weight loss of 15 lbs/7 Kg in the last 3-6 months? NO Bowels: Wound: none Temperature: No Drains: No documented in this encounterUk Healthcare08-04-2022 NotePROCEDURE: In the coronal projection, without intravenous [...] and signed by Quinton Carson on 06/09/2022 [facility]08-02-2022 Miscellaneous Notes* Telephone Encounter - Raquel Mullen - 06/07/2022 3:34 PM EDT Patient needs RX sent to [facility] in [facility]. The previous was sent to pharmacy which [...] process accordingly. Raquel Mullen documented in this encounterUk Healthcare07-21-2022 Evaluation note* Encounter Date Diagnosis Assessment Notes [...] note writ ten by Lupillo Amezquita MA, Charging Board Operator. Edited and approved by Dr. Beto Snyder MD. [facility] Other 07-05-2022 Evaluation note* Encounter Date Diagnosis [...] Patient care instructions given in writing by [facility] document. [employer] Other [id number] Miscellaneous Notes* Telephone Encounter - Jet Wong [...] concerns at this time. documented in this encounterUk [facility]06-21-2022 Miscellaneous Notes* Telephone Encounter - Jet Wong [...] procedure on 03/28. Thanks! documented in this encounterUk Healthcare06-17-2022 History of Present illness Narrative* Jessi Sheets APRN.FBI SPECIAL AGENT - 04/22/2022 12:20 PM EDT COLORECTAL SURGERY [...] (FLONASE) 50 mcg/actuation nasal spray Use 1 [place] in each nostril once daily. carBAMazepine XR [...] THE LUNGS every 4 hours if needed pwelzkafzjk-zofuxtrah-lzavbenq (TRELEGY ELLIPTA) 100-62.5-25 mcg Inhale 1 Puff [...] Sheets APRN.KWESI Colorectal Surgery documented in this encounterUk Healthcare06-17-2022 Nurse Note* Mary Mena MA - 04/22/2022 12:06 PM EDT .What is the reason for your visit today? Post op Who is your referring physician? Self Are you having poor oral intake? NO Have you had unintentional weight loss of 15 lbs/7 Kg in the last 3-6 months? NO Bowels: regular Wound: none Temperature: No Drains: No documented in this encounterUk Healthcare06-02-2022 Miscellaneous Notes* Telephone Encounter - Rachael - 04/07/2022 12:35 AM EDT Record ID: [id number] Patient name: Mary Leal Date: April 06, [...] likely is it that you would recommend [facility] to a friend or family member? -> likely Please tell me what you liked best about your hospital experience: -> The nurses documented in this encounterUk Healthcare05-31-2022 NoteHNO ID: [id number] Author: Pravin Ladd MD Service: Colorectal Author Type: Resident Type: Progress Notes Filed: 04/05/2022 7:52 AM Note Text: COLORECTAL SURGERY PROGRESS NOTE Mary Leal [id number] ASSESSMENT AND PLAN Mary Leal is a [...] General Pravin Ladd MD General Surgery residentBaystate Franklin Medical CenterFvagehgr04-47-2072 NoteHNO ID: [id number] Author: Nita Lamas MD Service: Colorectal Author Type: Fellow Type: Progress Notes Filed: 04/04/2022 9:40 AM Note Text: COLORECTAL SURGERY PROGRESS NOTE Mary Leal [id number] ASSESSMENT AND PLAN Mary Leal is a [...] Nita Lamas MD Colorectal Fellow 04/04/2022 9:40 [facility]05-29-2022 NoteHNO ID: [id number] Author: Pravin Ladd MD Service: Colorectal Author Type: Resident Type: Progress Notes Filed: 04/03/2022 8:03 AM Note Text: COLORECTAL SURGERY PROGRESS NOTE Mary Leal [id number] ASSESSMENT AND PLAN Mary Leal is a [...] General Pravin Ladd MD General Surgery ResidentBaystate Franklin Medical CenterWdznzplg18-44-3326 NoteHNO ID: [id number] Author: Nancy Cadena MD Service: Colorectal Author Type: Resident Type: Progress Notes Filed: 04/02/2022 8:34 AM Note Text: COLORECTAL SURGERY PROGRESS NOTE Mary Leal [id number] ASSESSMENT AND PLAN Mary Leal is a [...] Nancy Cadena MD General Surgery Resident, PGY-2 [id number] [id number] NoteHNO ID: [id number] Author: Nancy Cadena MD Service: Colorectal Author [...] 2022 COLORECTAL SURGERY PROGRESS NOTE Mary Leal [id number] ASSESSMENT AND PLAN Mary Leal is a [...] Nancy Cadena MD General Surgery Resident, PGY-2 [id number] [id number] NoteHNO ID: [id number] Author: Yolanda Lamb MD Service: Colorectal Author Type: Resident Type: Progress Notes Filed: 03/31/2022 9:08 AM Note Text: COLORECTAL SURGERY PROGRESS NOTE Mary Leal [id number] ASSESSMENT AND PLAN Mary Leal is a [...] AND ANASTOMOSIS - General Yolanda Lamb MDBaystate Franklin Medical CenterFjhpcbgj68-06-1612 NoteHNO ID: [id number] Author: Pravin Ladd MD Service: Colorectal Author [...] 2022 COLORECTAL SURGERY PROGRESS NOTE Mary Leal [id number] ASSESSMENT AND PLAN Mary D Elvis is a 51 year old female with PMHx Asthma, HTN, BPD, Dyslipidemia and colonic inertia who is now s/p Hand assisted TAC, EI takedown + OANH 03/28 - D/C PEER EDUCATOR - Advance to GI soft diet - [...] AND ANASTOMOSIS - General Pravin Ladd MDBaystate Franklin Medical CenterYrjrxplz35-75-4713 NoteHNO ID: [id number] Author: ELIZABETH Dias Service: Care Management Author Type: Air Support Operations Operator Type: Care Mgt Initial Assessment Filed: [...] time ADVANCE DIRECTIVES Current Advance Directive: None Employee Development Director Attempted to Assist with AD Completion: Yes [...] Housing Stability: Not on file PATIENT SCREEN 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/Senior Product Development 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 Stated Goals: To be cured/healed Under the [...] March 29, 2022 TIME: 3:45 PM PHONE: [phone] Bjouupze49-45-2374 NoteHNO ID: [id number] Author: Pravin Ladd MD Service: Colorectal Author Type: Resident Type: Progress Notes Filed: 04/01/2022 5:50 AM Note Text: COLORECTAL SURGERY PROGRESS NOTE Mary Leal [id number] ASSESSMENT AND PLAN Mary Leal is a 51 year old female with PMHx Asthma, HTN, BPD, Dyslipidemia and colonic inertia who is now s/p Hand assisted TAC, EI takedown + OANH 03/28 - PEER EDUCATOR for pain control - Magnesium replacement for [...] AND ANASTOMOSIS - General Pravin Ladd MDBaystate Franklin Medical CenterNkotmamz71-67-6107 NoteHNO ID: [id number] Author: Nathanael Craig DO Service: Anesthesiology Author Type: Anesthesiologist Type: Anesthesia Procedure Notes Filed: 03/28/2022 4:16 PM Note Text: ANESTHESIOLOGY PROCEDURE NOTE Peripheral Nerve Block General Information Procedure Start Time/Medication Administration: 03/28/2022 3:50 PM Procedure End time: 03/28/2022 3:55 PM Patient location during procedure: OR Timeout Performed Pre-procedure: timeout performed Consent Obtained: Yes 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: care felt hat steamer and arm band Reason for block: [...] 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 and care felt hat steamer Reason for block: post-op pain management/at [...] March 28, 2022 TIME: 4:14 PM CSN: [id number] NoteHNO ID: [id number] Author: Carmen Stanley APRN.QUALITY SYSTEMS MANAGER Service: Anesthesiology Author Type: Nurse Nylon Winder Type: Anesthesia Procedure Notes Filed: 03/28/2022 9:49 AM Note Text: ANESTHESIOLOGY PROCEDURE NOTE Airway General Information Procedure Start Time/Medication Administration: 03/28/2022 9:21 AM Patient location during procedure: OR 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, care felt hat steamer and patient Staffing QUALITY SYSTEMS MANAGER: Carmen Stanley APRN.QUALITY SYSTEMS MANAGER Performed by: QUALITY SYSTEMS MANAGER Indications and Patient Condition Preoxygenated: yes Difficult [...] March 28, 2022 TIME: 9:49 AM CSN: [id number] NoteHNO ID: [id number] Author: Carmen Stanley APRN.CRNA Service: Anesthesiology Author Type: Nurse Nylon Winder Type: Anesthesia Procedure Notes Filed: 03/28/2022 9:49 [...] March 28, 2022 TIME: 9:48 AM CSN: [id number] Miscellaneous Notes* Telephone Encounter - Jet Wong [...] colon. Would like a call back at [phone] documented in this encounterUk Healthcare05-10-2022 Miscellaneous Notes* Telephone Encounter - Jennie Moreno RN - 03/15/2022 2:39 PM EDT Outside medical record EGD H Pylori biopsy received by fax. Scanned into [employer] under scanned documents. Hard copy handed to Dr. Masters. Per Dr Masters- please call patient and let her know the H Pylori biopsy is negative. Called patient . Message relayed. No questions at this time. * Telephone Encounter - Karthikeyan Turk RN - 03/15/2022 2:21 PM EDT [facility] records. Requesting a cover sheet with the request result be faxed to them at [phone]. H Pylori result request faxed with confirmation. * Telephone Encounter - Karthikeyan Turk RN - 03/15/2022 2:21 PM EDT Images from the original note were not included. DO Leo Mariano Sp Dd Clinical Pool Please contact [facility] [phone] to see if the H pylori biopsy is back yet from her EGD there documented in this encounterUk Healthcare05-10-2022 Evaluation note* Encounter Date Diagnosis Assessment Notes [...] is in agreement with our treatment plan. 10 May, 2022 Other chronic pain (ICD-10 - G89.29) March, [...] note writ ten by Wanda Yang LPN, Charging Board Operator. Edited and approved by Dr. Beto Snyder MD. [employer] Other 05-10-2022 Miscellaneous Notes* Telephone Encounter - Silvia Ybarra - 03/15/2022 1:24 PM EDT PA for Dexilant renewal initiated through [employer]. Awaiting response ID# [id number] Rx BIN [id number] Rx PCN [id number] Rx Grp [id number] documented in this encounterUk Healthcare05-10-2022 Miscellaneous Notes* Telephone Encounter - Jet Wong [...] concerns at this time. documented in this encounterUk Healthcare05-10-2022 History of Present illness Narrative* Isra Masters, [...] seem be musculoskeletal in nature.EGD done in [facility] showed some gastritis and duodenitis. Current Outpatient [...] (FLONASE) 50 mcg/actuation nasal spray Use 1 [place] in each nostril once daily. carBAMazepine XR [...] THE LUNGS every 4 hours if needed wepyjjinaeq-tdiftqfhz-mcjlzcsh (TRELEGY ELLIPTA) 100-62.5-25 mcg Inhale 1 Puff [...] no edema RESPIRATORY: No dyspnea : neg PRESIDENT CEO & FOUNDER: neg The remainder of the review of [...] Isra Masters DO 03/15/2022 documented in this encounterUk Healthcare05-09-2022 Instructions* Patient Instructions* Urmila Alexander APRN.FBI SPECIAL AGENT - 03/14/2022 10:43 AM EDT PATIENT PREOPERATIVE INSTRUCTIONS Mary Obrien MD has scheduled you for your procedure at this [facility]: [phone] --[phone] [address]. Please check in on the1st floor at [...] Procedures: - YOU MUST HAVE A RESPONSIBLE BOATING SAFETY OFFICER TAKE YOU HOME. A EMPLOYEE DEVELOPMENT DIRECTOR OR ROLLER PICKER CANNOT BE MADE A RESPONSIBLE BOATING SAFETY OFFICER. - We recommend that a responsible person [...] Advance Directive, please fax a copy to [phone] or email to for it to be [...] your chart that day. documented in this encounterUk Healthcare05-09-2022 History and physical note * Urmila Alexander [...] vaccine, age 12+ yr (PFIZER-BIONTECH - [facility]) CHIEF COMPLAINT: reverse ileostomy HPI: Pt. presenting [...] fevers. Neurological: No history of TIA's, stroke, ETHYLBENZENE OXIDIZER tumor, impaired sensorium, hemiplegia, paraplegia orquadraplegia. No [...] > 1 time per night or hematuria. PRESIDENT CEO & FOUNDER: Negative for abnormal vaginal bleeding, abnormal vaginal [...] every 4 hours if needed Taking Yes joydvhbayfv-aoflntyfs-lvzkscpk (TRELEGY ELLIPTA) 100-62.5-25 mcg Inhale 1 Puff [...] (FLONASE) 50 mcg/actuation nasal spray Use 1 [place] in each nostril once daily. No medication [...] or any previous visit (from the past 12680 hour(s)). EKG: Assessment HTN (hypertension) Assessment: Managed [...] of difficult airway No abnormal airway history PCE7UV1-FNHt Score: Age: <65 Sex: Female Hypertension history: [...] 10:30 AM PAGER/CONTACT #: documented in this encounterUk Healthcare04-25-2022 Miscellaneous Notes* Telephone Encounter - Isra Masters [...] Monday, 03/02, at 0900 - routed to [employer] to make it legit. Please advise. documented in this encounterUk Healthcare04-15-2022 Instructions* Patient Instructions* Nelsy Chávez APRN.CNP - 02/18/2022 1:18 PM EDT Healing as expected from surgery. You have a pinpoint area of suture just under the vaginal epithelium surface that may need more time to fully heal. Please call the office if you would like to try vaginal estrogen cream or with any questions/concerns. documented in this encounterUk Healthcare04-15-2022 History of Present illness Narrative* Nelsy Chávez [...] no Pain: no Abnormal Vaginal Discharge: no PRESIDENT CEO & FOUNDER HISTORY: Last pap: cannot remember; Last mammogram: She has never had a mammogram LMP: No LMP recorded. Patient has had a hysterectomy.; Menopause n/a: Menstrual history: NA; Deliveries: I have confirmed and edited as necessary, the PFSH obtained by others. Nelsy Chávez APRN.FBI SPECIAL AGENT Buzzsaw Operator Helper offered: Patient declines. OBJECTIVE: There were no [...] estrogen Nelsy Chávez APRN.KWESI documented in this encounterUk Healthcare04-08-2022 History of Present illness Narrative* Flaca Bartholomew, [...] 15 Flaca Bartholomew PT documented in this encounterUk Healthcare04-05-2022 Nurse Note* Re Sierra MA - 02/08/2022 [...] Temperature: No Drains: No documented in this encounterUk Healthcare04-05-2022 History of Present illness Narrative* Mary Obrien [...] TONSILLECTOMY HX 07/2021 revision VAGINAL HYSTERECTOMY 2014 [facility] 10/2015 for endometriosis, has remaining both [...] (FLONASE) 50 mcg/actuation nasal spray Use 1 [place] in each nostril once daily. carBAMazepine XR [...] THE LUNGS every 4 hours if needed mxxfghjmdda-lsjuakgvt-qgijqhva (TRELEGY ELLIPTA) 100-62.5-25 mcg Inhale 1 Puff [...] medical complications of surgery including DVT/PE, PNA, TN, stroke, and . The patient understands these risks and is in agreement with proceeding. Medical Decision Making: Data Reviewed: Tests & Documents Reviewed/ordered: Review of prior notes from myself, OR, Dr. Wang Review of prior operative reports I have discussed Mary Leal's treatment plan and/or results with the patient. Mary Obrien MD Colorectal Surgery documented in this encounterUk Healthcare04-05-2022 History of Present illness Narrative* Magali Mitchell APRN.FBI SPECIAL AGENT - 02/08/2022 11:04 AM EDT Female Pelvic [...] you received about pain medications helpful? Yes Buzzsaw Operator Helper offered:Patient declines OBJECTIVE: BP 113/76 Pulse 74 [...] 6 month Patient expressed understanding. Magali Mitchell APRN.FBI SPECIAL AGENT documented in this encounterUk Healthcare03-29-2022 Miscellaneous Notes* Telephone Encounter - Steffi Ross LPN - 02/01/2022 11:08 AM EDT [facility] 06-10-21 Pharmacy and Rx request verified. Please file if appropriate. Thank you Steffi Ross LPN documented in this encounterUk Healthcare03-28-2022 NoteHNO ID: [id number] Author: Newton Woodward, DILLAN Service: ? Author Type: Physical Therapist Type: Progress Notes Filed: 01/31/2022 1:23 PM Note Text: Episode Visit Count: 3 Therapist That Will Oversee The Plan Of Care: [place] then [place] Start of Care Date: 01/18/22 Onset Date: [...] to Home;Specialty Service Patient transferring care to: [facility] [place] SUBJECTIVE: Patient Reason for Visit: lack of [...] untimed codes) : 40 Newton Woodward PT, [facility]03-28-2022 History of Present illness Narrative* Newton Woodward, [...] to Home;Specialty Service Patient transferring care to: [facility]- Flaca Bartholomew SUBJECTIVE: Patient Reason for [...] Newton Woodward PT, DPT documented in this encounterUk Healthcare03-21-2022 NoteHNO ID: [id number] Author: Newton Woodward, PT Service: ? Author [...] untimed codes) : 45 Newton Woodward PT, [facility]03-15-2022 NoteHNO ID: [id number] Author: Jessi Isaacs PT Service: ? Author [...] Planned: 8 Planned Treatment Interventions: Therapeutic exercise (52015);Neuromuscular re-education (70178);Manual therapy (75589);Therapeutic activities (86597);Self-mcfp management (99445);Patient/Family/Caregiver Education PLAN FOR NEXT VISIT: PFM dynamics; biofeedback Patient demonstrates good understanding of plan of care and treatment. The above goals and plan of care were discussed and agreed upon by patient/family. Transfer of Care Due To: Closer to Home (patient to transfer in February 2022) Patient transferring care to: [facility]- [facility] Bartholomew SUBJECTIVE: Mary Leal is [...] function/quality of life. 52 (more content not included)...[facility] HospitalYpylkynt20-39-9649 NoteHNO ID: [id number] Author: Moni Munguia RN Service: Care Management [...] Primary Care Physician Name/Phone: Eliceo Gómez Jr [phone] TRANSPORTATION ARRANGEMENTS: Transportation Arrangements: N/A The Pt is accepted by [facility] for new ostomy care. The SOC will be within 24 to 48 hrs. The pt will be contacted directly with the SOC. The Pt verbalized agreement with this dc plan. SIGNATURE: Moni Munguia RN PATIENT NAME: Mary Leal DATE: December 27, 2021 TIME: 4:14 PM PAGER/CONTACT #: [phone] Nwhutrzf77-91-1576 NoteHNO ID: [id number] Author: Parish Celeste DO Service: Colorectal Author [...] - Pain and nausea control -> d/c PEER EDUCATOR - D/c entereg - Culturelle - Continue [...] 0659 12/27/21 07 - 12/28/21 0659 Shift 1314-9655 6315-7162 7727-0867 24 Hour Total 6859-7301 9208-5338 2719-5269 24 Hour Total INTAKE PO 60 60 PO 60 60 IV 2100 2100 Volume (mL) (lactated ringers iv infusion) 2099 2099 Shift Total 2160 2160 OUTPUT Urine 0367 578 7914 2300 200 200 Void (ml) 300 1000 1300 200 200 Output ( Indwelling Urinary Catheter 12/24/21 Call 16 Fr) 1000 1000 Emesis 0 0 Emesis (ml) 0 0 Ostomy 250 125 375 Ileostomy 1 250 125 375 # of BMs Number of BMs 0 x 0 x Shift Total 4942 973 6354 2675 200 200 Weight (kg) 82.1 82.1 82.1 82.1 82.1 82.1 82.1 82.1 Recent Labs 12/26/21 0755 12/25/21 0606 WBC -- 5.96 HB -- 11.6 HCT -- 35.2* PLT -- 271 NA 139 141 K 4.0 4.0 CHLOR 102 104 CO2 28 28 CREAT 0.62* 0.72 BUN 10 12 GLUC 71 91 CA 8.5 8.5 Parish Celeste DO General Surgery, PGY-4 [phone] After 6 pm and on the weekends please page [phone] 12-26-2021 NoteHNO ID: [id number] Author: Jenifer Ayala MD Service: Colorectal Author Type: Fellow Type: Progress Notes Filed: 12/26/2021 12:13 PM Note Text: GENERAL SURGERY PROGRESS NOTE Name: Mary Leal 12/26/2021 12:11 PM Interval Events: Patient doing well post-operatively. No acute events overnight. Tolerating CLD diet without nausea or vomiting. Stoma productive of bilious fluid + gas Pain well controlled with PEER EDUCATOR + oral pain medication (feels most relief from po oxycodone). Assessment and Plan: 51 year old female with pelvic organ prolapse and chronic constipation, likely slow transit but with possible component of pelvic outlet obstruction and with discordant testing. Patient underwent laparoscopic protopexy on 12/24/21 surgery was uneventful. Post-operative course has been uncompliacted. Pain control- Tylenol Gabapentin Toradol PEER EDUCATOR: Dilaudid, tegretol, klonopin, requip, trintellix, oxycodone Cardiac- [...] any questions or concerns page [facility] [id number] Objective Physical exam: BP 117/66 Pulse 77 [...] 0659 12/26/21 07 - 12/27/21 0659 Shift 5336-0587 9119-0825 4066-1875 24 Hour Total 2726-7778 0647-2622 6733-5283 24 Hour Total INTAKE PO 60 60 PO 60 60 IV 213 668 881 Volume (mL) (lactated ringers iv infusion) 213 668 881 Shift Total 273 668 941 OUTPUT Urine 312 524 9852 1000 Void (ml) 0 0 Output ( Indwelling Urinary Catheter 12/24/21 Call 16 Fr) 669 287 4984 1000 Emesis 0 0 Emesis (ml) 0 0 Ostomy 100 100 Ileostomy 1 100 100 # of BMs Number of BMs 0 x 0 x Shift Total 396 872 7008 1000 Weight (kg) 82.1 82.1 82.1 82.1 [...] Date Noted - Pelvic floor dysfunction 12/24/2021[facility] CenterLndpqmeo06-55-6864 NoteHNO ID: [id number] Author: Sonido Owen MD Service: Colorectal Author [...] been uncompliacted. Pain control- Tylenol Gabapentin Toradol PEER EDUCATOR: Dilaudid, tegretol, klonopin, requip, trintellix Cardiac- Vitals: [...] Owen MD General Surgery PGY 2 Pg [phone] For any questions or concerns page [facility] [id number] Objective Physical exam: BP 111/61 Pulse 86 [...] 0659 12/25/21 07 - 12/26/21 0659 Shift 5218-6582 4561-7203 8419-7555 24 Hour Total 0745-8227 4851-7342 3331-2661 24 Hour Total INTAKE PO 240 120 360 PO 240 120 360 IV 3100 3100 Volume (mL) (lactated ringers iv infusion) 1800 1800 Volume (mL) (lactated ringers iv infusion) 1300 1300 Shift Total 3100 714 410 4828 OUTPUT Urine 200 690 612 2129 OR Urine Output 200 200 Output ( Indwelling Urinary Catheter 12/24/21 Call 16 Fr) 300 500 800 Emesis 0 0 0 Emesis (ml) 0 0 0 Ostomy 0 0 0 Ileostomy 1 0 0 0 # of BMs Number of BMs 0 x 0 x 0 x Blood 50 50 Estimated Blood loss 50 50 Shift Total 250 637 244 7291 Weight (kg) 82.1 82.1 82.1 82.1 82.1 [...] Date Noted - Pelvic floor dysfunction 12/24/2021[facility] CenterGhqulphj81-71-3649 NoteHNO ID: [id number] Author: Carmen Stanley APRN.QUALITY SYSTEMS MANAGER Service: Anesthesiology Author Type: Nurse Nylon Winder Type: Anesthesia Procedure Notes Filed: 12/24/2021 8:44 [...] Imaging Guidance Used: No SIGNATURE: Carmen Stanley APRN.QUALITY SYSTEMS MANAGER PATIENT NAME: Mary Leal DATE: December 24, 2021 TIME: 8:44 AM CSN: [id number] NoteHNO ID: [id number] Author: Carmen Stanley APRN.QUALITY SYSTEMS MANAGER Service: Anesthesiology Author Type: Nurse Nylon Winder Type: Anesthesia Procedure Notes Filed: 12/24/2021 8:44 AM Note Text: ANESTHESIOLOGY PROCEDURE NOTE Airway General Information Procedure Start Time/Medication Administration: 12/24/2021 8:22 AM Patient location during procedure: OR 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, care felt hat steamer and patient Staffing Anesthesiologist: Chayito Ojeda MD QUALITY SYSTEMS MANAGER: Carmen Stanley APRN.QUALITY SYSTEMS MANAGER Performed by: QUALITY SYSTEMS MANAGER and anesthesiologist Indications and Patient Condition Preoxygenated: [...] December 24, 2021 TIME: 8:43 AM CSN: [id number] Evaluation note* Encounter Date Diagnosis Assessment Notes [...] note writ ten by Lupillo Amezquita MA, Charging Board Operator. Edited and approved by Dr. Beto Snyder MD. [employer] Other 11-01-2021 Evaluation note* Encounter Date Diagnosis [...] note writ ten by Lupillo Amezquita MA, Charging Board Operator. Edited and approved by Dr. Beto Snyder MD. [employer] Other 10-14-2021 Evaluation note* Encounter Date Diagnosis [...] no improvement in 2 to 3 days. [employer] Other 10-08-2021 Evaluation note* Encounter Date Diagnosis [...] Patient care instructions given in writting by [facility] At Home document [employer] Other 10-07-2021 Evaluation note* Encounter Date Diagnosis [...] Aug, Other chronic pain (ICD-10 - G89.29) [employer] Other 09-22-2021 Evaluation note* Encounter Date Diagnosis [...] Jul, Other chronic pain (ICD-10 - G89.29) [employer] Other 03-01-2021 Note [id number]#1.00CD:127[facility] 01-04-2021 NoteCystoscopy with Botox injection ? Voiding [...] if you have a fever over 100 degrees.[facility] 11-11-2020 NoteChief Complaint Pt is here for [...] BENSON, Dawna Feldman [address] [place] [address]- [phone] Additional Instructions: F/u in 1yr. Patient Education Urinary Frequency I, Christy Gill , personally scribed for Dr. Marmolejo on 11/11/2020 12:07:15. Electronically signedby scribadele iGll on 11/11/2020 12:07:15. Documentation recorded by the [...] deficit disorder Bipolar disorder (more content not included)...[facility] Comment on above:Result Comment: Electronically Signed By: Francie BENSON, Dawna Feldman\.br\Date and Time Signed: 11/11/2111:16 EST\.br\Electronically Co-Signed By: Christy Gill MA\.br\Date and Time Co-Signed: 11/11/20 12:07 [id number] [id number]:127[facility] Narrative - Reported* MARY LEAL is being seen for an initial evaluation of. * 52-year-old female seen in cardiology consultation at the request of her primary care physician forelevated troponin while in [facility] this past spring that was associated with [...] was simply at small type II non- TN troponin elevationrelated to inflammation and gastritis and [...] colectomy. She can follow-up as needed otherwise. -[facility]-Ambrosio Lopez DO Work Phone: Evaluation note* Diagnosis Pelvic floor dysfunction- Primary Pelvic muscle wasting Lack of coordination Follow-up examination after colorectal surgery Follow-up examination, following other surgery documented in this encounter [facility] note* Diagnosis Gastroesophageal reflux disease, unspecified whether esophagitis present documented in this encounter [facility] note* Diagnosis Follow-up examination after colorectal surgery- Primary Follow-up examination, following other surgery documented in this encounter [facility] note* Diagnosis Post-operative state- Primary Other postprocedural status Yeast infection of the skin Candidiasis of skin and nails documented in this encounter [facility] note* Diagnosis Pelvic floor dysfunction- Primary Pelvic muscle wasting Lack of coordination Follow-up examination after colorectal surgery Follow-up examination, following other surgery documented in this encounter [facility] note* Diagnosis Postoperative state- Primary Other postprocedural status Attention to ileostomy (HCC) Attention to ileostomy documented in this encounter [facility] note* Diagnosis Preop examination- Primary [...] Attention to ileostomy documented in this encounter [facility] note* Diagnosis Gastroesophageal reflux disease, unspecified whether esophagitis present Chronic idiopathic constipation Unspecified constipation Attention to ileostomy (HCC) Attention to ileostomy documented in this encounter [facility] note* Diagnosis Follow-up examination after colorectal surgery- Primary Follow-up examination, following other surgery Pelvic floor dysfunction Pelvic muscle wasting documented in this encounter [facility] noteNo InformationNoBizeeBee Other Evaluation noteNoArkeia Software Other Evaluation note* Diagnosis Follow-up examination after colorectal surgery- Primary Follow-up examination, following other surgery Periumbilical abdominal pain Abdominal pain, periumbilic Outlet dysfunction constipation Colonic inertia Other functional disorders of intestine [facility] noteNo assessment information available[facility] Work Phone: Evaluation note* Diagnosis Gas bloat syndrome- Primary Chronic idiopathic constipation Unspecified constipation Gastroparesis [facility] Diagnosis Gastroesophageal reflux disease, unspecified whether esophagitis present [facility]* Diagnosis Gastroparesis- Primary [facility]* Diagnosis CHUCKIE (obstructive sleep apnea)- Primary Obstructive sleep apnea (adult) (pediatric) [facility] Diagnosis Pre-op exam- Primary Preoperative examination, unspecified Primary hypertension Unspecified essential hypertension Mild persistent asthma without complication Unspecified asthma Gastroparesis CHUCKIE (obstructive sleep apnea) Obstructive sleep apnea (adult) (pediatric) [facility] Diagnosis CHUCKIE (obstructive sleep apnea)- Primary Obstructive sleep apnea (adult) (pediatric) [facility]* Diagnosis Chronic idiopathic constipation- Primary Unspecified constipation Nausea Nausea alone [facility] Diagnosis Gastroesophageal reflux disease with esophagitis without hemorrhage- Primary [facility] Diagnosis Colonic inertia- Primary Other functional disorders of intestine Pelvic floor dysfunction Pelvic muscle wasting Nausea Nausea alone Gastroparesis [facility]* Diagnosis Pylorospasm- Primary Functional dyspepsia Dyspepsia and other specified disorders of function of stomach Gastroesophageal reflux disease with esophagitis without hemorrhage [facility]* Diagnosis Gastroesophageal reflux disease, unspecified whether esophagitis present [facility] Diagnosis CHUCKIE (obstructive sleep apnea)- Primary Obstructive sleep apnea (adult) (pediatric) [facility]* Diagnosis Pylorospasm- Primary Functional dyspepsia Dyspepsia and other specified disorders of function of stomach Gastroesophageal reflux disease with esophagitis without hemorrhage [facility]* Diagnosis Gastroparesis- Primary [facility]* Diagnosis Preop examination- Primary Preoperative examination, unspecified Nausea Nausea alone CHUCKIE (obstructive sleep apnea) Obstructive sleep apnea (adult) (pediatric) Mild persistent asthma without complication Unspecified asthma Gastroesophageal reflux disease, unspecified whether esophagitis present Gastroparesis documented in this encounter [facility] note* Diagnosis 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 Personal history of other diseases of digestive system documented in this encounter [facility] note* Diagnosis Gastroesophageal reflux disease, unspecified whether esophagitis present documented in this encounter [facility] note* Diagnosis Incomplete bladder emptying- Primary Constipation, unspecified constipation type Urinary urgency Urgency of urination Urinary frequency Nocturia documented in this encounter [facility] note* Diagnosis Upper abdominal pain- Primary Abdominal pain, other specified site [facility] Diagnosis Burning with urination- Primary Dysuria documented in this encounter [facility] note* Diagnosis Bety vaginitis Candidiasis of vulva and vagina documented in this encounter [facility] note* Diagnosis Pre-op examination- Primary Preoperative [...] urge Urge incontinence documented in this encounter [facility] note* Diagnosis Educational circumstances- Primary Educational circumstance Urinary urgency Urgency of urination Urinary frequency OAB (overactive bladder) Hypertonicity of bladder Urinary incontinence, urge Urge incontinence documented in this encounter [facility] note* Diagnosis Post-operative state- Primary Other postprocedural status documented in this encounter [facility] note* Diagnosis Procedure and treatment not carried out for other reasons- Primary documented in this encounter [facility] note* Diagnosis Post-operative state- Primary Other postprocedural status Vaginal burning Other specified symptom associated with female genital organs documented in this encounter [facility] note* Diagnosis Vaginal burning- Primary Other specified symptom associated with female genital organs documented in this encounter [facility] note* Diagnosis River grade D esophagitis Early satiety Unintentional weight loss Loss of weight Gastroparesis [facility] Diagnosis Gas bloat syndrome [facility]* Diagnosis Pain Generalized pain Pre-op evaluation- [...] apnea (adult) (pediatric) [facility]* Diagnosis Pre-op evaluation- Primary Preoperative examination, [...] apnea (adult) (pediatric) [facility]* Diagnosis Chronic abdominal pain- Primary Abdominal pain, unspecified site Avoidant-restrictive food intake disorder (ARFID) Bloating Flatulence, eructation, and gas pain Gastroparesis [facility] Diagnosis Anxiety- Primary Anxiety state, unspecified documented in this encounter [facility]* Diagnosis Urinary frequency Urinary urgency Urgency of urination Burning with urination Dysuria Erythema Unspecified erythematous condition Chronic vulvitis Unspecified vaginitis and vulvovaginitis Night sweats Generalized hyperhidrosis documented in this encounter [facility]* Diagnosis Granulation tissue Hymen abnormality documented in this encounter [facility]* Diagnosis Degenerative disc disease, cervical- Primary documented in this encounter [facility]* Diagnosis PCB (post coital bleeding)- Primary Postcoital bleeding Granulation tissue documented in this encounter [facility]* Diagnosis PCB (post coital bleeding) Postcoital bleeding Granulation tissue Hymen abnormality documented in this encounter [facility]* Diagnosis Peroneal tendinitis of right lower extremity- Primary Bilateral foot pain Exostosis of bone of foot documented in this encounter [facility]* Diagnosis Soft tissue mass- Primary Disorders of soft tissue, unspecified Gastro-esophageal reflux disease without esophagitis Gastroparesis Mild intermittent asthma, unspecified whether complicated (CMS/HCC) documented in this encounter [facility]* Diagnosis Oral candidiasis- Primary Candidiasis of mouth Tongue pain Glossodynia documented in this encounter [facility]* Diagnosis Chronic diarrhea- Primary Diarrhea Chronic abdominal pain Abdominal pain, unspecified site Bloating Flatulence, eructation, and gas pain Inadequate oral intake Other symptoms concerning nutrition, metabolism, and development River grade D esophagitis Gastroparesis [facility] Diagnosis Aftercare following surgery Encounter for other specified aftercare Aftercare following surgery Encounter for other specified aftercare documented in this encounter [facility]* Diagnosis Aftercare following surgery Encounter for other specified aftercare documented in this encounter [facility]* Diagnosis Seborrheic keratosis Lentigines Capillary angioma Nevus, non-neoplastic documented in this encounter [facility]* Diagnosis Restless legs syndrome Restless legs syndrome (RLS) documented in this encounter [facility]* Diagnosis Other migraine without status migrainosus, not intractable [facility] Diagnosis CHUCKIE (obstructive sleep apnea)- Primary Obstructive sleep apnea (adult) (pediatric) Pre-op testing- Primary Unspecified pre-operative examination CHUCKIE (obstructive sleep apnea) Obstructive sleep apnea (adult) (pediatric) [facility] Diagnosis Other migraine without status migrainosus, not intractable- Primary [facility] Diagnosis CHUCKIE (obstructive sleep apnea)- Primary Obstructive sleep apnea (adult) (pediatric) [facility] N[facility] - Reported* Type [...] see above list Hospitalization History respiratory 02/2020 [facility] Other [facility]znfe general Narrative - ReportedNoArkeia Software Other history general Narrative - Reported* Type [...] see above list Hospitalization History respiratory 02/2020 [facility] Other Hospital Discharge instructionsAmbulatory Orders* Referral to Rheumatology Location: None [facility] Work Phone: InstructionsNot on filedocumented in this encounter [facility] filedocumented in [facility]Not on filedocumented in this encounter [facility]ructionsNot on filedocumented in this encounter [facility]ructionsNot on filedocumented in this encounter [facility] System[facility] for referral (narrative)* Outpatient Procedure (Routine) - Pending Review Specialty Diagnoses / Procedures Referred By Laurentac t Referred To Contact [facility] Diagnoses Gastroparesis Procedures CAPSULE ENDOSCOPY SMART Isra Masters DO [facility] [address] [place] [id number] [place] [phone] Referral ID Status Reason Start Date Expiration Date Visits Requested Visits Authorized [id number] Pending Review Auto-Generat ed Referral 10/11/2022 10/11/[address] [facility] Outpatient Procedure (Routine) - Pending Review Specialty Diagnoses / Procedures Referred By Laurentac t Referred To Contact [facility] Diagnoses Chronic idiopathic constipation Procedures SIGMOIDOSCOPY SIGMOIDOSCOPY FLX DX W/COLLJ SPEC BR/WA IF PFRMD Isra Masters DO [facility] [address] [place] [id number] [place] [phone] Referral ID Status Reason Start Date Expiration Date Visits Requested Visits Authorized [id number] Pending Review Auto-Generat ed Referral 11/30/2022 11/30/2023 1 1 [facility] Outpatient Procedure (Routine) - Pending Review Specialty Diagnoses / Procedures Referred By Contac t Referred To Contact [facility] Diagnoses Gastroparesis Procedures EGD - THERAPEUTIC, EUS, OR TUBE INTERVENTIONS ESOPHAGOGASTRODUODENOSC OPY TRANSORAL DIAGNOSTIC STOMACH SURGERY PROCEDURE UNLIST[place] [address] [place] [phone] Referral ID Status Reason Start Date Expiration Date Visits Requested Visits Authorized [id number] Pending Review Auto-Generat ed Referral 01/11/2023 01/12/2024 1 1 [facility] for referral (narrative)* Outpatient Procedure (Routine) - Pending Review Specialty Diagnoses / Procedures Referred By Contac t Referred To Contact [facility] Diagnoses Incomplete bladder emptying Urinary urgency Urinary frequency Nocturia Procedures URODYNAMICS WHI COMPLX CYSTOMETRO W/VOID PRESS&URETHRAL PROFILE Nelsy Chávez APRN.[employer] [address] [place] [address] [facility] [address] [place] [address] Referral ID Status Reason Start Date Expiration Date Visits Requested Visits Authorized [id number] Pending Review Auto-Generat ed Referral 07/31/2023 07/30/2024 1 1 [facility] for referral (narrative)* Consultation (Routine) - Open Specialty Diagnoses / Procedures Referred By Contac t Referred To Contact Family Medicine Diagnoses Upper abdominal pain Lev Ritter APRN [employer] [address] [place] [address] [facility] [address] [facility] [place] [address] Referral ID Status Reason Start Date Expiration Date Visits Re quested Visits Authorized [id number] Open 08/12/2023 09/12/2024 1 1 [facility] for referral (narrative)* Consultation (Routine) - New Request Specialty Diagnoses / Procedures Referred By Contac t Referred To Contact Psychology Diagnoses Avoidant-restrictive food intake disorder (ARFID) Chronic abdominal pain Padmaja Ledezma MD, PhD [address] [facility] [address] [place] [address] Referral ID Status Reason Start Date Expiration Date V isits Requested Visits Authorized [id number] New Request 08/09/2024 09/03/2025 1 1 * Adjunctive Therapy (Routine) - New Request Specialty Diagnoses / Procedures Referred By Gustavo salazar Referred To Contact Nutrition and Dietetics Diagnoses Chronic abdominal pain Bloating Gastroparesis Padmaja Ledezma MD, PhD [address] [place] [address] Referral ID Status Reason Start Date Expiration Date V isits Requested Visits Authorized [id number] New Request 08/09/2024 09/03/2025 1 1 * Radiology (Routine) - New Request Specialty Diagnoses / Procedures Referred By Gustavo salazar Referred To Contact Diagnoses Chronic abdominal pain Bloating Procedures HYDROGEN (H2) BREATH TEST Padmaja Ledezma MD, PhD [address] [place] [address] Referral ID Status Reason Start Date Expiration Date V isits Requested Visits Authorized [id number] New Request 08/09/2024 09/03/2025 1 1 [facility] NarrativeDISCUSS OTHER OPTIONS PRIOR [facility] [employer] Other reason for visit NarrativeRECHECK CERVICAL PAIN DISCUSS PROC[facility]ost. [facility] [employer] Other Reofje for visit Narrative* Outpatient Procedure (Routine) - Closed Specialty Diagnoses / Procedures Referred By Gustavo salazar Referred To Contact [facility] Diagnoses Gastroparesis Procedures GI TRANSIT & PRES RAVINDER WIRELESS CAPSULE W/INTERP Isra Masters DO [facility] [address] [place] [address] [facility] [address] [place] [address] Referral ID Status Reason Start Date Expiration Date Visits Re quested Visits Authorized [id number] Closed 11/08/2022 11/05/2023 1 1 [facility] Summary Purpose Family History No Family History [...] FoundDocuments on File Type Date Recorded 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 Advance Directive(s) 10/13/2021 4:09 PM Advance Directive(s) 10/14/2020 8:14 AM Documents on File Type Date Recorded 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 Advance Directive(s) 10/13/2021 4:09 PM Advance Directive(s) 10/14/2020 8:14 AM Documents on File Type Date Recorded 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 Advance Directive(s) 03/21/2022 1:42 PM [...] unspecified whether esophagitis present Isra Masters DO [address] [place] [address] Referral ID Status Reason Start Date Expiration Date Visits Re quested Visits Authorized [id number] Closed 1 1 Referral ID Status Reason Start Date Expiration Date V isits Requested Visits Authorized [id number] Pending Review 1 1 Specialty Diagnoses / Procedures Referred By Gustavo salazar Referred To Contact CT IMAGING Diagnoses Periumbilical abdominal pain Procedures CT ABD/PEL W IVCON CT ABD & P[place] [address] [place] [address] Ct Imaging Referral ID Status Reason Start Date Expiration Date Visits Requested Visits Authorized [id number] Pending Review Auto-Generat ed Referral 08/02/2022 08/25/2023 1 1 Reason BILATERAL SHOULDER P AIN Diagnosis 1 Shoulder pain (M25.5 19) Referral Organization [facility] Referring Provider First Name Beto Referring Provider Last Name Steven Referring Provider Specialty Pain Medici ne Referred Organization [facility] Referred Provider Beto Cartagena Referred Address [address] [facility] [place], [place],[address] Referred Provider Specialty Orthopedic S urgery Referral Priority Routine Referral Appointment Date 2022-10-10 General Notes Kim Manley 10:01:46 AM >patient already scheduled with [facility] 10/10/22 at 1:30pm. Sending p2p at this time Referral ID Status Reason Start Date Expiration Date Visits Re quested Visits Authorized [id number] Closed 1 1 Specialty Diagnoses / Procedures Referred By Gustavo salazar Referred To Contact Diagnoses River grade D esophagitis Early satiety Unintentional weight loss Gastroparesis Procedures DIAGNOSTIC UPPER ENDOSCOPY UT ESOPHAGOGASTRODUODENOSCOPY TRANSORAL DIAGNOSTIC Padmaja Ledezma MD, PhD [address] [place] [address] [address] [place] [address] Referral ID Status Reason Start Date Expiration Date V isits Requested Visits Authorized [id number] New Request 03/06/2024 03/31/2025 1 1 Specialty Diagnoses / Procedures Referred By Contdestiny t Referred To Contact Diagnoses Other migraine without status migrainosus, not intractable Pauline Christensen MD [address] [facility], [address] [place] [address] Referral ID Status Reason Start Date Expiration Date V isits Requested Visits Authorized [id number] Pending Review 05/15/2024 05/15/2025 1 1 Referral ID Status Reason Start Date Expiration Date V isits Requested Visits Authorized [id number] Pending Review 05/15/2024 05/15/2025 1 1 Chief Complaint and Reason for Visit Chief Complaint M25.519 M25.569 R52 Chief Complaint M25.519 M25.569 R52 bilateral shoulder pain Chief Complaint M76.821/right foor p ain Chief Complaint M76.821/right foor p ain chest tightness dizzy sob Chief Complaint r11.0 r10.11 Chief Complaint M76.71 Chief Complaint M76.71 Unknown Chief Complaint Admit Date cervical spondylosis, radiculopathy [facility] 2023 2:53pm Chief Complaint Admit Date cervical spondylosis, radiculopathy [facility] 2023 2:53pm M54.12 October 09, 2024 8 [...] Chief Complaint Admit Date cervical spondylosis, radiculopathy [facility] 2023 2:53pm M54.12 October 09, 2024 8 :55am m47.816 October 10, 2024 8 :42am M54.16 October 10, 2024 8 :44am EMG/MRI results October 14, 2024 8 :25am Granulation Tissue, Post Coital Bleeding , Hymenal October 24, 2024 5:57am R14.0 K31.84 November 14, 2024 6: 37am f/u after PM November 20, 2024 1 :13pm Chief Complaint Admit Date cervical spondylosis, radiculopathy [facility] 2023 2:53pm M54.12 October 09, 2024 8 [...] November 20 1:13pm Chief Complaint Admit Date f/u after PM November 20, 2024 1 :13pm M25.511 M25.512 November 20, 2024 1 :54pm outpatient labs December 16, 2024 1:25pm Reason for Visit Admit Date Cervical radiculopathy November 20 1:13pm Chief Complaint Admit Date outpatient labs December 16, 2024 1:25pm soof February 17, 2025 7:4 4am thoracic radiculopathy February 25, 2025 7:01am Chief Complaint * Patient is a 53-year-old female who returns at the request of her primary care physician with episodic chest discomfort associated weakness, dizziness, diaphoresis with recent work-up that [facility] emergency room. Reportedly her troponins are elevated [...] of which are currently being investigated at [facility] (now her fourth GI specialist). * Last year while in [place] she had similar issues with elevated troponins in the ED and underwent heart catheterization that did not reveal any specific significant disease, details of the discharge summary are reviewed * She underwent recent stress perfusion imaging at [facility], the report is reviewed, she [...] disease, will investigate the troponin rise at [facility] however I believe this is likely a non- [place] troponin elevation, likely associated withunderlying inflammatory bowel disease. We will follow-up on a as needed basis unless further objective data come to light * Patient is a 53-year-old female who returns at the request of her primary care physician with episodic chest discomfort associated weakness, dizziness, diaphoresis with recent work-up that [facility] emergency room. Reportedly her troponins are elevated [...] of which are currently being investigated at [facility] (now her fourth GI specialist). * Last year while in [place] she had similar issues with elevated troponins in the ED and underwent heart catheterization that did not reveal any specific significant disease, details of the discharge summary are reviewed * She underwent recent stress perfusion imaging at [facility], the report is reviewed, she [...] disease, will investigate the troponin rise at [facility] however I believe this is likely a non- [place] troponin elevation, likely associated withunderlying inflammatory bowel disease. We will follow-up on a as needed basis unless further objective data come to light Additional Source Comments INFORMATION SOURCE (unrecogn ized section and content) DATE CREATED AUTHOR 07/08/2021 [facility] DATE CREATED AUTHOR AUTHOR'S ORGANIZ ATION 11/18/2021 [facility] DATE CREATED AUTHOR AUTHOR'S ORGANIZ ATION 02/01/2022 [facility] DATE CREATED AUTHOR AUTHOR'S ORGANIZ ATION 04/05/2022 [facility] DATE CREATED AUTHOR AUTHOR'S ORGANIZ ATION 09/29/2022 [facility] dical Specialist DATE CREATED AUTHOR AUTHOR'S ORGANIZ ATION 12/09/2022 [facility] DATE CREATED AUTHOR AUTHOR'S ORGANIZ ATION 04/16/2023 [facility] DATE CREATED AUTHOR AUTHOR'S ORGANIZ ATION 06/14/2023 [facility] DATE CREATED AUTHOR AUTHOR'S ORGANIZ ATION 08/14/2023 [facility] DATE CREATED AUTHOR AUTHOR'S ORGANIZ ATION 09/02/2023 [facility] DATE CREATED AUTHOR AUTHOR'S ORGANIZ ATION 10/27/2023 [facility] DATE CREATED AUTHOR AUTHOR'S ORGANIZ ATION 01/11/2024 [facility] DATE CREATED AUTHOR AUTHOR'S ORGANIZ ATION 01/26/2024 [facility] DATE CREATED AUTHOR AUTHOR'S ORGANIZ ATION 03/16/2024 [facility] DATE CREATED AUTHOR AUTHOR'S ORGANIZ ATION 12/14/2024 [facility] DATE CREATED AUTHOR AUTHOR'S ORGANIZ ATION 12/28/2024 [facility] DATE CREATED AUTHOR AUTHOR'S ORGANIZ ATION 12/30/2024 [place] DATE CREATED AUTHOR AUTHOR'S ORGANIZ ATION 01/22/2025 [facility] DATE CREATED AUTHOR AUTHOR'S ORGANIZ ATION 01/26/2025 [facility] DATE CREATED AUTHOR AUTHOR'S ORGANIZ ATION [facility] DATE CREATED AUTHOR AUTHOR'S ORGANIZ ATION 04/02/2025 [facility] Source Comments (unrecognize d section and content) In the event this informatio n is protected by the Federal Confidentiality of Alcohol and Drug Abuse Patient Records regulations: The Federal rules restrict any use of the information to criminally investigate or prosecute any alcohol or drug abuse patient.[facility] HealthcareIn the event this information is protected by the Federal Confidentiality of Alcohol and Drug Abuse Patient Records regulations: The Federal rules restrict any use of the information to criminally investigate or prosecute any alcohol or drug abuse patient.[facility] HealthcareIn the event this information is protected by the Federal Confidentiality of Alcohol and Drug Abuse Patient Records regulations: The Federal rules restrict any use of the information to criminally investigate or prosecute any alcohol or drug abuse patient.[facility] HealthcareIn the event this information is protected by the Federal Confidentiality of Alcohol and Drug Abuse Patient Records regulations: The Federal rules restrict any use of the information to criminally investigate or prosecute any alcohol or drug abuse patient.[facility] HealthcareIn the event this information is protected by the Federal Confidentiality of Alcohol and Drug Abuse Patient Records regulations: The Federal rules restrict any use of the information to criminally investigate or prosecute any alcohol or drug abuse patient.[facility] HealthcareIn the event this information is protected by the Federal Confidentiality of Alcohol and Drug Abuse Patient Records regulations: The Federal rules restrict any use of the information to criminally investigate or prosecute any alcohol or drug abuse patient.[facility] HealthcareIn the event this information is protected by the Federal Confidentiality of Alcohol and Drug Abuse Patient Records regulations: The Federal rules restrict any use of the information to criminally investigate or prosecute any alcohol or drug abuse patient.[facility] HealthcareIn the event this information is protected by the Federal Confidentiality of Alcohol and Drug Abuse Patient Records regulations: The Federal rules restrict any use of the information to criminally investigate or prosecute any alcohol or drug abuse patient.[facility] the event this information is protected by the Federal Confidentiality of Alcohol and Drug Abuse Patient Records regulations: The Federal rules restrict any use of the information to criminally investigate or prosecute any alcohol or drug abuse patient.[facility] HealthcareIn the event this information is protected by the Federal Confidentiality of Alcohol and Drug Abuse Patient Records regulations: The Federal rules restrict any use of the information to criminally investigate or prosecute any alcohol or drug abuse patient.[facility] HealthcareIn the event this information is protected by [...] or prosecute any alcohol or drug abuse patient.[facility] HealthcareIn the event this information is protected by the Federal Confidentiality of Alcohol and Drug Abuse Patient Records regulations: The Federal rules restrict any use of the information to criminally investigate or prosecute any alcohol or drug abuse patient.[facility] HealthcareIn the event this information is protected by the Federal Confidentiality of Alcohol and Drug Abuse Patient Records regulations: The Federal rules restrict any use of the information to criminally investigate or prosecute any alcohol or drug abuse patient.[facility] HealthcareIn the event this information is protected by the Federal Confidentiality of Alcohol and Drug Abuse Patient Records regulations: The Federal rules restrict any use of the information to criminally investigate or prosecute any alcohol or drug abuse patient.[facility] HealthcareIn the event this information is protected by the Federal Confidentiality of Alcohol and Drug Abuse Patient Records regulations: The Federal rules restrict any use of the information to criminally investigate or prosecute any alcohol or drug abuse patient.[facility] HealthcareIn the event this information is protected by the Federal Confidentiality of Alcohol and Drug Abuse Patient Records regulations: The Federal rules restrict any use of the information to criminally investigate or prosecute any alcohol or drug abuse patient.[facility] HealthcareIn the event this information is protected by the Federal Confidentiality of Alcohol and Drug Abuse Patient Records regulations: The Federal rules restrict any use of the information to criminally investigate or prosecute any alcohol or drug abuse patient.[facility] HealthcareIn the event this information is protected by the Federal Confidentiality of Alcohol and Drug Abuse Patient Records regulations: The Federal rules restrict any use of the information to criminally investigate or prosecute any alcohol or drug abuse patient.[facility] HealthcareIn the event this information is protected by the Federal Confidentiality of Alcohol and Drug Abuse Patient Records regulations: The Federal rules restrict any use of the information to criminally investigate or prosecute any alcohol or drug abuse patient.[facility] HealthcareIn the event this information is protected by the Federal Confidentiality of Alcohol and Drug Abuse Patient Records regulations: The Federal rules restrict any use of the information to criminally investigate or prosecute any alcohol or drug abuse patient.[facility] HealthcareIn the event this information is protected by the Federal Confidentiality of Alcohol and Drug Abuse Patient Records regulations: The Federal rules restrict any use of the information to criminally investigate or prosecute any alcohol or drug abuse patient.[facility] HealthcareIn the event this information is protected by the Federal Confidentiality of Alcohol and Drug Abuse Patient Records regulations: The Federal rules restrict any use of the information to criminally investigate or prosecute any alcohol or drug abuse patient.[facility] HealthcareIn the event this information is protected by the Federal Confidentiality of Alcohol and Drug Abuse Patient Records regulations: The Federal rules restrict any use of the information to criminally investigate or prosecute any alcohol or drug abuse patient.[facility] HealthcareIn the event this information is protected by the Federal Confidentiality of Alcohol and Drug Abuse Patient Records regulations: The Federal rules restrict any use of the information to criminally investigate or prosecute any alcohol or drug abuse patient.[facility] HealthcareIn the event this information is protected by the Federal Confidentiality of Alcohol and Drug Abuse Patient Records regulations: The Federal rules restrict any use of the information to criminally investigate or prosecute any alcohol or drug abuse patient.[facility] HealthcareIn the event this information is protected by the Federal Confidentiality of Alcohol and Drug Abuse Patient Records regulations: The Federal rules restrict any use of the information to criminally investigate or prosecute any alcohol or drug abuse patient.[facility] HealthcareIn the event this information is protected by the Federal Confidentiality of Alcohol and Drug Abuse Patient Records regulations: The Federal rules restrict any use of the information to criminally investigate or prosecute any alcohol or drug abuse patient.[facility] HealthcareIn the event this information is protected by the Federal Confidentiality of Alcohol and Drug Abuse Patient Records regulations: The Federal rules restrict any use of the information to criminally investigate or prosecute any alcohol or drug abuse patient.[facility] HealthcareIn the event this information is protected by the Federal Confidentiality of Alcohol and Drug Abuse Patient Records regulations: The Federal rules restrict any use of the information to criminally investigate or prosecute any alcohol or drug abuse patient.[facility] HealthcareIn the event this information is protected by the Federal Confidentiality of Alcohol and Drug Abuse Patient Records regulations: The Federal rules restrict any use of the information to criminally investigate or prosecute any alcohol or drug abuse patient.[facility] HealthcareIn the event this information is protected by the Federal Confidentiality of Alcohol and Drug Abuse Patient Records regulations: The Federal rules restrict any use of the information to criminally investigate or prosecute any alcohol or drug abuse patient.[facility]In the event this information is protected by the Federal Confidentiality of Alcohol and Drug Abuse Patient Records regulations: The Federal rules restrict any use of the information to criminally investigate or prosecute any alcohol or drug abuse patient.[facility] HealthcareIn the event this information is protected by the Federal Confidentiality of Alcohol and Drug Abuse Patient Records regulations: The Federal rules restrict any use of the information to criminally investigate or prosecute any alcohol or drug abuse patient.[facility]In the event this information is protected by the Federal Confidentiality of Alcohol and Drug Abuse Patient Records regulations: The Federal rules restrict any use of the information to criminally investigate or prosecute any alcohol or drug abuse patient.[facility]In the event this information is protected by the Federal Confidentiality of Alcohol and Drug Abuse Patient Records regulations: The Federal rules restrict any use of the information to criminally investigate or prosecute any alcohol or drug abuse patient.[facility]In the event this information is protected by the Federal Confidentiality of Alcohol and Drug Abuse Patient Records regulations: The Federal rules restrict any use of the information to criminally investigate or prosecute any alcohol or drug abuse patient.[facility]In the event this information is protected by the Federal Confidentiality of Alcohol and Drug Abuse Patient Records regulations: The Federal rules restrict any use of the information to criminally investigate or prosecute any alcohol or drug abuse patient.[facility]In the event this information is protected by the Federal Confidentiality of Alcohol and Drug Abuse Patient Records regulations: The Federal rules restrict any use of the information to criminally investigate or prosecute any alcohol or drug abuse patient.[facility]In the event this information is protected by the Federal Confidentiality of Alcohol and Drug Abuse Patient Records regulations: The Federal rules restrict any use of the information to criminally investigate or prosecute any alcohol or drug abuse patient.[facility]In the event this information is protected by the Federal Confidentiality of Alcohol and Drug Abuse Patient Records regulations: The Federal rules restrict any use of the information to criminally investigate or prosecute any alcohol or drug abuse patient.[facility]In the event this information is protected by the Federal Confidentiality of Alcohol and Drug Abuse Patient Records regulations: The Federal rules restrict any use of the information to criminally investigate or prosecute any alcohol or drug abuse patient.[facility] HealthcareIn the event this information is protected by the Federal Confidentiality of Alcohol and Drug Abuse Patient Records regulations: The Federal rules restrict any use of the information to criminally investigate or prosecute any alcohol or drug abuse patient.[facility]In the event this information is protected by the Federal Confidentiality of Alcohol and Drug Abuse Patient Records regulations: The Federal rules restrict any use of the information to criminally investigate or prosecute any alcohol or drug abuse patient.[facility] HealthcareIn the event this information is protected by the Federal Confidentiality of Alcohol and Drug Abuse Patient Records regulations: The Federal rules restrict any use of the information to criminally investigate or prosecute any alcohol or drug abuse patient.[facility]In the event this information is protected by the Federal Confidentiality of Alcohol and Drug Abuse Patient Records regulations: The Federal rules restrict any use of the information to criminally investigate or prosecute any alcohol or drug abuse patient.[facility]In the event this information is protected by the Federal Confidentiality of Alcohol and Drug Abuse Patient Records regulations: The Federal rules restrict any use of the information to criminally investigate or prosecute any alcohol or drug abuse patient.[facility]In the event this information is protected by the Federal Confidentiality of Alcohol and Drug Abuse Patient Records regulations: The Federal rules restrict any use of the information to criminally investigate or prosecute any alcohol or drug abuse patient.[facility]In the event this information is protected by the Federal Confidentiality of Alcohol and Drug Abuse Patient Records regulations: The Federal rules restrict any use of the information to criminally investigate or prosecute any alcohol or drug abuse patient.[facility]In the event this information is protected by the Federal Confidentiality of Alcohol and Drug Abuse Patient Records regulations: The Federal rules restrict any use of the information to criminally investigate or prosecute any alcohol or drug abuse patient.[facility]In the event this information is protected by the Federal Confidentiality of Alcohol and Drug Abuse Patient Records regulations: The Federal rules restrict any use of the information to criminally investigate or prosecute any alcohol or drug abuse patient.[facility]In the event this information is protected by the Federal Confidentiality of Alcohol and Drug Abuse Patient Records regulations: The Federal rules restrict any use of the information to criminally investigate or prosecute any alcohol or drug abuse patient.[facility]In the event this information is protected by the Federal Confidentiality of Alcohol and Drug Abuse Patient Records regulations: The Federal rules restrict any use of the information to criminally investigate or prosecute any alcohol or drug abuse patient.[facility]In the event this information is protected by the Federal Confidentiality of Alcohol and Drug Abuse Patient Records regulations: The Federal rules restrict any use of the information to criminally investigate or prosecute any alcohol or drug abuse patient.[facility]In the event this information is protected by the Federal Confidentiality of Alcohol and Drug Abuse Patient Records regulations: The Federal rules restrict any use of the information to criminally investigate or prosecute any alcohol or drug abuse patient.[facility]In the event this information is protected by the Federal Confidentiality of Alcohol and Drug Abuse Patient Records regulations: The Federal rules restrict any use of the information to criminally investigate or prosecute any alcohol or drug abuse patient.[facility]In the event this information is protected by the Federal Confidentiality of Alcohol and Drug Abuse Patient Records regulations: The Federal rules restrict any use of the information to criminally investigate or prosecute any alcohol or drug abuse patient.[facility] HealthcareIn the event this information is protected by the Federal Confidentiality of Alcohol and Drug Abuse Patient Records regulations: The Federal rules restrict any use of the information to criminally investigate or prosecute any alcohol or drug abuse patient.[facility] the event this information is protected by the Federal Confidentiality of Alcohol and Drug Abuse Patient Records regulations: The Federal rules restrict any use of the information to criminally investigate or prosecute any alcohol or drug abuse patient.[facility]In the event this information is protected by the Federal Confidentiality of Alcohol and Drug Abuse Patient Records regulations: The Federal rules restrict any use of the information to criminally investigate or prosecute any alcohol or drug abuse patient.[facility] HealthcareIn the event this information is protected by [...] or prosecute any alcohol or drug abuse patient.[facility]In the event this information is protected by the Federal Confidentiality of Alcohol and Drug Abuse Patient Records regulations: The Federal rules restrict any use of the information to criminally investigate or prosecute any alcohol or drug abuse patient.[facility]In the event this information is protected by the Federal Confidentiality of Alcohol and Drug Abuse Patient Records regulations: The Federal rules restrict any use of the information to criminally investigate or prosecute any alcohol or drug abuse patient.[facility]In the event this information is protected by the Federal Confidentiality of Alcohol and Drug Abuse Patient Records regulations: The Federal rules restrict any use of the information to criminally investigate or prosecute any alcohol or drug abuse patient.[facility]In the event this information is protected by the Federal Confidentiality of Alcohol and Drug Abuse Patient Records regulations: The Federal rules restrict any use of the information to criminally investigate or prosecute any alcohol or drug abuse patient.[facility]In the event this information is protected by the Federal Confidentiality of Alcohol and Drug Abuse Patient Records regulations: The Federal rules restrict any use of the information to criminally investigate or prosecute any alcohol or drug abuse patient.[facility]In the event this information is protected by the Federal Confidentiality of Alcohol and Drug Abuse Patient Records regulations: The Federal rules restrict any use of the information to criminally investigate or prosecute any alcohol or drug abuse patient.[facility]In the event this information is protected by the Federal Confidentiality of Alcohol and Drug Abuse Patient Records regulations: The Federal rules restrict any use of the information to criminally investigate or prosecute any alcohol or drug abuse patient.[facility]In the event this information is protected by the Federal Confidentiality of Alcohol and Drug Abuse Patient Records regulations: The Federal rules restrict any use of the information to criminally investigate or prosecute any alcohol or drug abuse patient.[facility]In the event this information is protected by the Federal Confidentiality of Alcohol and Drug Abuse Patient Records regulations: The Federal rules restrict any use of the information to criminally investigate or prosecute any alcohol or drug abuse patient.[facility]In the event this information is protected by the Federal Confidentiality of Alcohol and Drug Abuse Patient Records regulations: The Federal rules restrict any use of the information to criminally investigate or prosecute any alcohol or drug abuse patient.[facility]In the event this information is protected by the Federal Confidentiality of Alcohol and Drug Abuse Patient Records regulations: The Federal rules restrict any use of the information to criminally investigate or prosecute any alcohol or drug abuse patient.[facility]In the event this information is protected by the Federal Confidentiality of Alcohol and Drug Abuse Patient Records regulations: The Federal rules restrict any use of the information to criminally investigate or prosecute any alcohol or drug abuse patient.[facility]In the event this information is protected by the Federal Confidentiality of Alcohol and Drug Abuse Patient Records regulations: The Federal rules restrict any use of the information to criminally investigate or prosecute any alcohol or drug abuse patient.[facility]In the event this information is protected by the Federal Confidentiality of Alcohol and Drug Abuse Patient Records regulations: The Federal rules restrict any use of the information to criminally investigate or prosecute any alcohol or drug abuse patient.[facility]In the event this information is protected by the Federal Confidentiality of Alcohol and Drug Abuse Patient Records regulations: The Federal rules restrict any use of the information to criminally investigate or prosecute any alcohol or drug abuse patient.[facility]In the event this information is protected by the Federal Confidentiality of Alcohol and Drug Abuse Patient Records regulations: The Federal rules restrict any use of the information to criminally investigate or prosecute any alcohol or drug abuse patient.[facility]In the event this information is protected by the Federal Confidentiality of Alcohol and Drug Abuse Patient Records regulations: The Federal rules restrict any use of the information to criminally investigate or prosecute any alcohol or drug abuse patient.[facility]In the event this information is protected by the Federal Confidentiality of Alcohol and Drug Abuse Patient Records regulations: The Federal rules restrict any use of the information to criminally investigate or prosecute any alcohol or drug abuse patient.[facility]In the event this information is protected by the Federal Confidentiality of Alcohol and Drug Abuse Patient Records regulations: The Federal rules restrict any use of the information to criminally investigate or prosecute any alcohol or drug abuse patient.[facility]In the event this information is protected by the Federal Confidentiality of Alcohol and Drug Abuse Patient Records regulations: The Federal rules restrict any use of the information to criminally investigate or prosecute any alcohol or drug abuse patient.[facility]In the event this information is protected by the Federal Confidentiality of Alcohol and Drug Abuse Patient Records regulations: The Federal rules restrict any use of the information to criminally investigate or prosecute any alcohol or drug abuse patient.[facility]In the event this information is protected by the Federal Confidentiality of Alcohol and Drug Abuse Patient Records regulations: The Federal rules restrict any use of the information to criminally investigate or prosecute any alcohol or drug abuse patient.[facility]In the event this information is protected by the Federal Confidentiality of Alcohol and Drug Abuse Patient Records regulations: The Federal rules restrict any use of the information to criminally investigate or prosecute any alcohol or drug abuse patient.[facility]In the event this information is protected by the Federal Confidentiality of Alcohol and Drug Abuse Patient Records regulations: The Federal rules restrict any use of the information to criminally investigate or prosecute any alcohol or drug abuse patient.[facility]In the event this information is protected by the Federal Confidentiality of Alcohol and Drug Abuse Patient Records regulations: The Federal rules restrict any use of the information to criminally investigate or prosecute any alcohol or drug abuse patient.[facility] HealthcareIn the event this information is protected by the Federal Confidentiality of Alcohol and Drug Abuse Patient Records regulations: The Federal rules restrict any use of the information to criminally investigate or prosecute any alcohol or drug abuse patient.[facility] Reason for Visit (unrecogniz ed section and content) Reason Comments Physical Therapy Specialty Diagnoses / Procedures Referred By Gustavo salazar Referred To Contact [facility] Diagnoses Follow-up examination after colorectal surgery Procedures CONSULT TO PHYSICAL THERAPY PHYSICAL THERAPY EVALUATION HIGH COMPLEX 45 [place] [address] [place] [address] [facility] [address] [place] [address] Referral ID Status Reason Start Date Expiration Date Visits Requested Visits Authorized [id number] Authorized Auto-Generat ed Referral 01/04/2022 11/05/2022 30 30 Reason Comments Refill Request dexlansoprazole Reason Comments Established Patient Follow-Up Reason Comments Post Op Reason Comments Established Patient Reason Comments Appointment for script refill Reason Comments Gastroparesis 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 Reason Comments Medication 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 [...] ESOPHAGUS DOUBLE CONTRAST STUDY Winston Hannah, [place] [address] Xr Imaging Referral ID Status Reason Start Date Expiration Date V isits Requested Visits Authorized [id number] Closed Auto-Generate d Referral 11/17/2022 12/17/2023 1 [...] ABD & [place] [address] [place] [address] Ct Imaging Referral ID Status Reason Start Date Expiration Date V isits Requested Visits Authorized [id number] Closed Auto-Generate d Referral 07/28/2022 11/05/2022 2 [...] By Contac t Referred To Contact Diagnoses River grade D esophagitis Early satiety Unintentional weight loss Gastroparesis Procedures DIAGNOSTIC UPPER ENDOSCOPY UT ESOPHAGOGASTRODUODENOSCOPY TRANSORAL DIAGNOSTIC Padmaja Ledezma MD, PhD [address] [place] [address] Referral ID Status Reason Start Date Expiration Date V isits Requested Visits Authorized [id number] New Request 03/06/2024 03/31/2025 1 1 Specialty Diagnoses / Procedures Referred By Contac t Referred To Contact Orthopedics / ORTHOPAEDIC SURGERY Diagnoses shoulder pain right pt will hand carry MRI Procedures POLI ACUTE Self Ryan Lynne MD [address] [place] [address] Referral ID Status Reason Start Date Expiration Date V isits Requested Visits Authorized [id number] Closed Financial Clearance Not Required 09/06/2020 10/05/2020 [...] Exam C/o bleeding after i ntercourse. LMP: SHARON FRIEDMAN 2014. Reason Comments Follow-up [place] silver nitrate [...] Visit 10/24/24 vaginal cuf f and hymen [id number] daysDenies PO concerns. Bleeding stopped after 7 [...] DO Primary Care Provider Active Start: November 20, 2024 End: November 20, 2024 Anibal Medrano DO Attending Provider Active S tart: November 20, 2024 End: November 20, 2024 Team Status: Inactive Member Role Status Dates Shannon Gómez DO Primary Care Provider Active Start: December 16, 2024 End: December 16, 2024 Everett Valdez MD Attending Provider Active St art: December 16, 2024 End: December 16, 2024 Team Status: Inactive Member Role Status Dates Shannon Gómez DO Primary Care Provider Active Start: February 17, 2025 End: February 17, 2025 Everett Valdez MD Attending Provider Active St art: February 17, 2025 End: February 17, 2025 Team Status: Active Member Role Status Dates Shannon Gómez DO Primary Care Provider Active Start: October 09, 2024 Anibal Medrano DO Other Provider Active Start : October 09, 2024 Ifeanyi Cantu MD Attending Provider Active Start: October 09, 2024 Team Status: Inactive Member Role Status Dates GERSON SchaferC Attending Provider Active St art: October 10, 2024 End: October 10, 2024 IsatuReno Parish SzymanskiDO leigha Primary Care Provider Active Start: October 10, 2024 End: October 10, 2024 Team Status: Inactive Member Role Status Dates Shannon Parish DO Dalia Primary Care Provider Active Start: October 10, 2024 End: October 10, 2024 Anibal Medrano , DO Attending Provider Active S tart: October 10, 2024 End: October 10, 2024 Team Status: Inactive Member Role Status Dates IsatuReno Parish DO Dalia Primary Care Provider Active Start: October 14, 2024 End: October 14, 2024 Anibalmarco Medrano , DO Attending Provider Active S tart: October 14, 2024 End: October 14, 2024 Team Status: Inactive Member Role Status Dates Shannon Parish DO Dalia Primary Care Provider Active Start: October 24, 2024 End: October 24, 2024 Dipti Acevedo DO Attending Provider Active Start: October 24, 2024 End: October 24, 2024 Team Status: Inactive Member Role Status Dates Shannon Parish DO Dalia Primary Care Provider Active Start: November 14, 2024 End: November 14, 2024 Padmaja Ledezma MD Attending Provider Active Start: [facility] 2024 End: November 14, 2024 Team Status: Inactive Member Role Status Dates Shannon Parish DO Dalia Primary Care Provider Active STEPHANIE WilsonC Attending Provider Active Life Enrichment Specialist Relationship Specialty Start Date End Date Hernandeztomasa Eliceo Lugo JrReno [address] [place] [address] PCP - General Family Practice 10/14/20 Life Enrichment Specialist Relationship Specialty Start Date End Date Hernandeztomasa Eliceo Lugo JrReno [address] [place] [address] PCP - General Family Practice 10/14/20 Life Enrichment Specialist Relationship Specialty Start Date End Date Hernandeztomasa Eliceo Lugo JrReno [address] [place] [address] PCP - General Family Practice 10/14/20 Life Enrichment Specialist Relationship Specialty Start Date End Date Eliceo Gómez Jr. [address] [place] [address] PCP - General Family Practice 10/14/20 Life Enrichment Specialist Relationship Specialty Start Date End Date Eliceo Gómez Jr. [address] [place] [address] PCP - General Family Practice 10/14/20 Life Enrichment Specialist Relationship Specialty Start Date End Date Eliceo Gómez Jr. [address] [place] [address] PCP - General Family Practice 10/14/20 Gwendolyn Stroud [address] [place] [address] Family Practice 03/14/22 Life Enrichment Specialist Relationship Specialty Start Date End Date Eliceo Gómez Jr. [address] [place] [address] PCP - General Family Practice 10/14/20 Gwendolyn Stroud [address] [place] [address] Family Practice 03/14/22 Life Enrichment Specialist Relationship Specialty Start Date End Date Eliceo Gómez [address] [place] [address] PCP - General Family Practice 10/14/20 Gwendolyn Stroud [address] [place] [address] Family Practice 03/14/22 Life Enrichment Specialist Relationship Specialty Start Date End Date Eliceo Gómez [address] [place] [address] PCP - General Family Practice 10/14/20 Gwendolyn Stroud [address] [place] [address] Family Practice 03/14/22 Life Enrichment Specialist Relationship Specialty Start Date End Date Eliceo Gómez Jr. [address] [place] [address] PCP - General Family Practice 10/14/20 Gwendolyn Stroud [address] [place] [address] Family Practice 03/14/22 Life Enrichment Specialist Relationship Specialty Start Date End Date Eliceo Gómez Jr. [address] [place] [address] PCP - General Family Practice 10/14/20 Gwendolyn Stroud [address] [place] [address] Family Practice 03/14/22 Life Enrichment Specialist Relationship Specialty Start Date End Date Eliceo Gmóez Jr. [address] [place] [address] PCP - General Family Practice 10/14/20 Gwendolyn Stroud CNP Family Practice 03/14/22 Life Enrichment Specialist Relationship Specialty Start Date End Date Eliceo Gómez Jr. [address] [place] [address] PCP - General Family Practice 10/14/20 Gwendolyn Stroud [employer]ENT Family Practice 03/14/22 Life Enrichment Specialist Relationship Specialty Start Date End Date Eliceo Gómez Jr. [address] [place] [address] PCP - General Family Practice 10/14/20 Gwendolyn Stroud, [employer] SPECIAL AGENT Family Practice 03/14/22 Life Enrichment Specialist Relationship Specialty Start Date End Date Eliceo Gómez Jr. [address] [place] [address] PCP - General Family Practice 10/14/20 Gwendolyn Stroud, [employer] SPECIAL AGENT Family Practice 03/14/22 Life Enrichment Specialist Relationship Specialty Start Date End Date Eliceo Gómez Jr. [address] [place] [address] PCP - General Family Medicine 10/14/20 Gwendolyn Stroud, [employer] SPECIAL AGENT Family Medicine 03/14/22 Life Enrichment Specialist Relationship Specialty Start Date End Date Eliceo Gómez Jr. [address] [place] [address] PCP - General Family Medicine 10/14/20 Gwendolyn Stroud, [employer] SPECIAL AGENT Family Medicine 03/14/22 Life Enrichment Specialist Relationship Specialty Start Date End Date Eliceo Gómez Jr. [address] [place] [address] PCP - General Family Medicine 10/14/20 Gwendolyn Stroud, [employer] SPECIAL AGENT Family Medicine 03/14/22 Life Enrichment Specialist Relationship Specialty Start Date End Date Eliceo Gómez Jr. [address] [place] [address] PCP - General Family Medicine 10/14/20 Gwendolyn Stroud CNP Family Medicine 03/14/22 Team Status: Inactive Member Role Status Dates Shannon Gómez DO Primary Care Provider Active Beto Snyder MD Attending Provider Active Life Enrichment Specialist Relationship Specialty Start Date End Date Eliceo Gómez Jr. [address] [place] [address] PCP - General Family Medicine 10/14/20 Gwendolyn Stroud CNP [address] [place] [address] Family Medicine 03/14/22 Life Enrichment Specialist Relationship Specialty Start Date End Date Eliceo Gómez Jr. [address] [place] [address] PCP - General Family Medicine 10/14/20 Gwendolyn Stroud CNP [address] [place] [address] Family Medicine 03/14/22 Life Enrichment Specialist Relationship Specialty Start Date End Date Eliceo Gómez Jr. [address] [place] [address] PCP - General Family Medicine 10/14/20 Gwendolyn Stroud CNP [address] [place] [address] Family Medicine 03/14/22 Life Enrichment Specialist Relationship Specialty Start Date End Date Eliceo Gómez Jr. [address] [place] [address] PCP - General Family Medicine 10/14/20 Gwendolyn Stroud CNP [address] [place] [address] Family Medicine 03/14/22 Life Enrichment Specialist Relationship Specialty Start Date End Date Eliceo Gómez Jr. [address] [place] [address] PCP - General Family Medicine 10/14/20 Gwendolyn Stroud CNP [address] [place] [address] Family Medicine 03/14/22 Life Enrichment Specialist Relationship Specialty Start Date End Date Eliceo Gómez Jr. [address] [place] [address] PCP - General Family Medicine 10/14/20 Gwendolyn Stroud, FBI SPECIAL AGENT [address] [place] [address] Family Medicine 03/14/22 Life Enrichment Specialist Relationship Specialty Start Date End Date Eliceo Gómez Jr. [address] [place] [address] PCP - General Family Medicine 10/14/20 Gwendolyn Stroud CNP [address] [place] [address] Family Medicine 03/14/22 Life Enrichment Specialist Relationship Specialty Start Date End Date Eliceo Gómez Jr. [address] [place] [address] PCP - General Family Medicine 10/14/20 Gwendolyn Stroud, KWESI [address] [place] [address] Family Medicine 03/14/22 Life Enrichment Specialist Relationship Specialty Start Date End Date Eliceo Gómez Jr. [address] [place] [address] PCP - General Family Medicine 10/14/20 Gwendolyn Stroud CNP [address] [place] [address] Family Medicine 03/14/22 Life Enrichment Specialist Relationship Specialty Start Date End Date Eliceo Gómez Jr. [address] [place] [address] PCP - General Family Medicine 10/14/20 Gwendolyn Stroud CNP [address] [place] [address] Family Medicine 03/14/22 Life Enrichment Specialist Relationship Specialty Start Date End Date Dalia Eliceo Lugo Jr. [address] [place] [address] PCP - General Family Medicine 10/14/20 Gwendolyn Stroud CNP [address] [place] [address] Family Medicine 03/14/22 Team Status: Inactive Member Role Status Dates Shannon Gómez , DO Primary Care Provider Active Beto Cartagena MD Attending Provider Active Life Enrichment Specialist Relationship Specialty Start Date End Date Eliceo Gómez Jr. [address] [place] [address] PCP - General Family Medicine 10/14/20 Gwendolyn Stroud CNP [address] [place] [address] Family Medicine 03/14/22 Life Enrichment Specialist Relationship Specialty Start Date End Date Eliceo Gómez Jr. [address] [place] [address] PCP - General Family Medicine 10/14/20 Gwendolyn Stroud CNP [address] [place] [address] Family Medicine 03/14/22 Life Enrichment Specialist Relationship Specialty Start Date End Date Eliceo Gómez Jr. [address] [place] [address] PCP - General Family Medicine 10/14/20 Gwendolyn Stroud CNP [address] [place] [address] Family Medicine 03/14/22 Life Enrichment Specialist Relationship Specialty Start Date End Date Eliceo Gómez Jr. [address] [place] [address] PCP - General Family Medicine 10/14/20 Gwendolyn Stroud CNP [address] [place] [address] Family Medicine 03/14/22 Life Enrichment Specialist Relationship Specialty Start Date End Date Eliceo Gómez Jr. [address] [place] [address] PCP - General Family Medicine 10/14/20 Gwendolyn Stroud CNP [address] [place] [address] Family Medicine 03/14/22 Life Enrichment Specialist Relationship Specialty Start Date End Date Eliceo Gómez Jr. [address] [place] [address] PCP - General Family Medicine 10/14/20 Gwendolyn Stroud CNP [address] [place] [address] Family Medicine 03/14/22 Life Enrichment Specialist Relationship Specialty Start Date End Date Eliceo Gómez Jr. [address] [place] [address] PCP - General Family Medicine 10/14/20 Gwendolyn Stroud CNP [address] [place] [address] Family Medicine 03/14/22 Life Enrichment Specialist Relationship Specialty Start Date End Date Eliceo Gómez Jr. [address] [place] [address] PCP - General Family Medicine 10/14/20 Gwendolyn Stroud CNP [address] [place] [address] Family Medicine 03/14/22 Team Status: Inactive Member Role Status Henrietta Gómez , DO Primary Care Provider Active Anibal Valle , DO Emergency Provider Active Life Enrichment Specialist Relationship Specialty Start Date End Date Eliceo Gómez Jr. [address] [place] [address] PCP - General Family Medicine 10/14/20 Gwendolyn Stroud CNP [address] [place] [address] Family Medicine 03/14/22 Life Enrichment Specialist Relationship Specialty Start Date End Date Eliceo Gmóez Jr. [address] [place] [address] PCP - General Family Medicine 10/14/20 Gwendolyn Stroud CNP [address] [place] [address] [facility] 03/14/22 Life Enrichment Specialist Relationship Specialty Start Date End Date Eliceo Gómez Jr. [address] [place] [address] PCP - General Family Medicine 10/14/20 Gwendolyn Stroud CNP [address] [place] [address] [facility] 03/14/22 Life Enrichment Specialist Relationship Specialty Start Date End Date lEiceo Gómez Jr., [address] [place] [address] PCP - General Family Medicine 10/14/20 Gwendolyn Stroud CNP [address] [place] [address] [facility] 03/14/22 Life Enrichment Specialist Relationship Specialty Start Date End Date Eliceo Gómez Jr., DO [address] [place] [address] PCP - General Family Medicine 10/14/20 Gwendolyn Stroud, KWESI [address] [place] [address] [facility] 03/14/22 Team Status: Inactive Member Role Status Dates Shannon Gómez DO Primary Care Provider Active Start: November 23, 2023 End: November 23, 2023 Tez Vazquez DO Attending Provider Active Start : November 23, 2023 End: November 23, 2023 Life Enrichment Specialist Relationship Specialty Start Date End Date Eliceo Gómez Jr., DO [address] [place] [address] PCP - General Family Medicine 10/14/20 Gwendolyn Stroud CNP [address] [place] [address] Family Medicine 03/14/22 Life Enrichment Specialist Relationship Specialty Start Date End Date Eliceo Gómez JrReno, DO [address] [place] [address] PCP - General Family Medicine 10/14/20 Gwendolyn Stroud CNP [address] [place] [address] Family Medicine 03/14/22 Life Enrichment Specialist Relationship Specialty Start Date End Date Eliceo Gómez Jr., DO [address] [place] [address] PCP - General Family Medicine 10/14/20 Gwendolyn Stroud, FBI SPECIAL AGENT [address] [place] [address] Family Medicine 03/14/22 Life Enrichment Specialist Relationship Specialty Start Date End Date Eliceo Gómez ., DO [address] [place] [address] PCP - General Family Medicine 10/14/20 Gwendolyn Stroud, KWESI [address] [place] [address] Family Medicine 03/14/22 Life Enrichment Specialist Relationship Specialty Start Date End Date Eliceo Gómez Jr., DO [address] [place] [address] PCP - General Family Medicine 10/14/20 Gwendolyn Stroud CNP [address] [place] [address] Family Medicine 03/14/22 Life Enrichment Specialist Relationship Specialty Start Date End Date Eliceo Gómez Jr., DO [address] [place] [address] PCP - General Family Medicine 10/14/20 Gwendolyn Stroud CNP [address] [place] [address] Family Medicine 03/14/22 Life Enrichment Specialist Relationship Specialty Start Date End Date Eliceo Gómez Jr., DO [address] [place] [address] PCP - General Family Medicine 10/14/20 Gwendolyn Stroud, KWESI [address] [place] [address] Family Medicine 03/14/22 Life Enrichment Specialist Relationship Specialty Start Date End Date Shannon Gómez DO [address] [place], [place] [address] PCP - General Family Medicine 11/14/23 Team [...] May 27, 2024 End: May 27, 2024 Life Enrichment Specialist Relationship Specialty Start Date End Date Eliceo Gómez Jr., DO [address] [place] [address] PCP - General Family Medicine 10/14/20 Gwendolyn Stroud, KWESI [address] [place] [address] Family Medicine 03/14/22 Life Enrichment Specialist Relationship Specialty Start Date End Date Eliceo Gómez Jr., DO [address] [place] [address] PCP - [facility] 10/14/20 Life Enrichment Specialist Relationship Specialty Start Date End Date Shannon Gómez, DO [address] [place] [address] PCP - General Family Medicine 11/14/23 Life Enrichment Specialist Relationship Specialty Start Date End Date Eliceo Gómez, DO [address] [place] [address] PCP - General Family [facility] 04/04/23 Eliceo Gómez, DO [address] [place] [address] PCP - [facility] 05/06/23 Dipti Acevedo, DO [address] [place] [address] Referring Physician Obstetrics and Gynecology 05/20/24 Life Enrichment Specialist Relationship Specialty Start Date End Date Eliceo Gómez, DO [address] [place] [address] PCP - General Family Medicine 04/04/23 Eliceo Gómez, DO [address] [place] [address] PCP - [facility] 05/06/23 Dipti Acevedo, DO [address] [place] [address] Referring Physician Obstetrics and Gynecology 05/20/24 Team Status: Inactive Member Role Status Henrietta Gómez DO Primary Care Provider Active Start: September 16, 2024 End: September 16, 2024 Anibal Medrano DO Attending Provider Active S tart: September 16, 2024 End: September 16, 2024 Life Enrichment Specialist Relationship Specialty Start Date End Date Eliceo Gómez, DO [address] [place] [address] PCP - General Family Medicine 04/04/23 Eliceo Gómez, DO [address] [place] [address] PCP - [facility] 05/06/23 Dipti Acevedo, DO [address] [place] [address] Referring Physician Obstetrics and Gynecology 05/20/24 Life Enrichment Specialist Relationship Specialty Start Date End Date Eliceo Gómez, DO [address] [place] [address] PCP - General Family Medicine 04/04/23 Eliceo Gómez DO [address] [place] [address] PCP - [facility] 05/06/23 Dipti Acevedo, DO [address] [place] [address] Referring Physician Obstetrics and Gynecology 05/20/24 Life Enrichment Specialist Relationship Specialty Start Date End Date Eliceo Gómez DO [address] [place] [address] PCP - General [facility] 04/04/23 Eliceo Gómez DO [address] [place] [address] PCP - [facility] 05/06/23 Dipti Acevedo, DO [address] [place] [address] Referring Physician Obstetrics and Gynecology 05/20/24 Life Enrichment Specialist Relationship Specialty Start Date End Date Eliceo Gómez DO [address] [place] [address] PCP - General Family [facility] 04/04/23 Eliceo Gómez DO [address] [place] [address] PCP - [facility] 05/06/23 Dipti Acevedo, DO [address] [place] [address] Referring Physician Obstetrics and Gynecology 05/20/24 Life Enrichment Specialist Relationship Specialty Start Date End Date Eliceo Gómez DO [address] [place] [address] PCP - General Family Medicine 04/04/23 Eliceo Gómez, [address] [place] [address] PCP - [facility] 05/06/23 Dipti Acevedo, [address] [place] [address] Referring Physician Obstetrics and Gynecology 05/20/24 Life Enrichment Specialist Relationship Specialty Start Date End Date Eliceo Gómez DO [address] [place] [address] PCP - General [facility] 04/04/23 Eliceo Gómez, [address] [place] [address] PCP - [facility] 05/06/23 Dipti Acevedo, [address] [place] [address] Referring Physician Obstetrics and Gynecology 05/20/24 Life Enrichment Specialist Relationship Specialty Start Date End Date Elicoe Gómez DO [address] [place] [address] PCP - General Family Medicine 04/04/23 Eliceo Gómez, [address] [place] [address] PCP - [facility] 05/06/23 Dipti Acevedo, DO [address] [place] [address] Referring Physician Obstetrics and Gynecology 05/20/24 Life Enrichment Specialist Relationship Specialty Start Date End Date Shannon Gómez, [address] [place] [address] PCP - General Family Medicine 11/14/23 Life Enrichment Specialist Relationship Specialty Start Date End Date Eliceo Gómez, [address] [place] [address] PCP - General Family Medicine 04/04/23 Eliceo Gómez, [address] [place] [address] PCP - [facility] 05/06/23 Dipti Acevedo, DO [address] [place] [address] Referring Physician Obstetrics and Gynecology 05/20/24 Life Enrichment Specialist Relationship Specialty Start Date End Date Eliceo Gómez DO [address] [place] [address] PCP - General Family Medicine 04/04/23 Eliceo Gómez, DO [address] [place] [address] PCP - [facility] 05/06/23 Dipti Acevedo, DO [address] [place] [address] Referring Physician Obstetrics and Gynecology 05/20/24 Life Enrichment Specialist Relationship Specialty Start Date End Date Eliceo Gómez DO [address] [address] [place] [address] PCP - General Family Medicine 04/04/23 Eliceo Gómez, DO [address] [place] [address] PCP - [facility] 05/06/23 Dipti Acevedo, DO [address] [place] [address] Referring Physician Obstetrics and Gynecology 05/20/24 Life Enrichment Specialist Relationship Specialty Start Date End Date Eliceo Gómez Jr., DO [address], [address] [place] [address] PCP - General Family Medicine 12/11/19 [place] [phone] (Work) Consulting Physician Behavioral Health 12/20/23 Life Enrichment Specialist Relationship Specialty Start Date End Date Eliceo Gómez Jr., DO [address], [address] [place] [address] PCP - General Family Medicine 12/11/19 Life Enrichment Specialist Relationship Specialty Start Date End Date Eliceo Gómez Jr., DO [address], [address] [place] [address] PCP - General Family Medicine 12/11/19 Life Enrichment Specialist Relationship Specialty Start Date End Date Eliceo Gómez Jr., DO [address], [address] [place] [address] PCP - General Family Medicine 12/11/19 [facility] [address] [facility] [address] [place] [phone] (Work) Consulting Physician Behavioral Health 12/20/23 Life Enrichment Specialist Relationship Specialty Start Date End Date Eliceo Gómez Jr., DO [address], [address] [place] [address] PCP - General Family Medicine 12/11/19 [facility] [address] [facility] [address] [place] [phone] (Work) Consulting Physician Behavioral Health 12/20/23 Life Enrichment Specialist Relationship Specialty Start Date End Date Eliceo Gómez Jr., DO [address] [facility] [address], [address] [place] [address] PCP - General Family Medicine 12/11/19 [facility] [address] [facility] [address] [place] [phone] (Work) Consulting Physician Behavioral Health 12/20/23 Life Enrichment Specialist Relationship Specialty Start Date End Date Eliceo Gómez Jr., DO [address] [facility], [address] [place] [address] PCP - General Family Medicine 12/11/19 [facility] [address] [facility] [address] [place] [phone] (Work) Consulting Physician Behavioral Health 12/20/23 Life Enrichment Specialist Relationship Specialty Start Date End Date Eliceo Gómez, [address] [place] [address] PCP - General Family Medicine 04/04/23 Eliceo Gómez, DO [address] [place] [address] PCP - [facility] 05/06/2310/05 Dipti Acevedo, DO [address] [place] [address] Referring Physician Obstetrics and Gynecology 05/20/24 Life Enrichment Specialist Relationship Specialty Start Date End Date Eliceo Gómez DO [address] [place] [address] PCP - General Family Medicine 04/04/23 Eliceo Gómez DO [address] [place] [address] PCP - [facility] 05/06/2310/05 Dipti Acevedo, DO [address] [place] [address] Referring Physician Obstetrics and Gynecology 05/20/24 Life Enrichment Specialist Relationship Specialty Start Date End Date Eliceo Gómez Jr., DO [address] [facility], [address] [place] [address] PCP - General Family Medicine 12/11/19 [place] [phone] (Work) Consulting Physician Behavioral Health 12/20/23 Team Status: Inactive Member Role Status Dates Shannon Gómez DO Primary Care Provider Active Start: February 25, 2025 End: February 25, 2025 GERSON SchaferC Attending Provider Active St art: February 25, 2025 End: February 25, 2025 Life Enrichment Specialist Relationship Specialty Start Date End Date Eliceo Gómez DO [address] [place] [address] PCP - General Family Medicine 04/04/23 Eliceo Gómez DO [address] [place] [address] PCP - [facility] 05/06/2310/05 Dipti Acevedo, DO [address] [place] [address] Referring Physician Obstetrics and Gynecology 05/20/24 Goals [...] BE BASED ON THE PRIMARY CLINICAL RECORDS. [email or web address]. provides no warranty or guarantee of the accuracy or completeness of information in this document.
[2025-04-14 07:49] VITALS: BP 114/78; PULSE 78; TEMP 36.7; O2SAT 98
[2025-04-14 08:27] VITALS: BP 124/59; PULSE 72; O2SAT 100
[2025-04-14 08:30] VITALS: BP 123/82; PULSE 70; O2SAT 100
[2025-04-14] MEDS: DEXAMETHASONE SOD PHOS 10 MG/ML VIAL INJ (08:30)
[2025-04-14] MEDS: BUPIVACAINE HCL 0.25% PF 25 MG/10 ML VIAL 2 ML INJ (08:30)
[2025-04-14] MEDS: LIDOCAINE HCL 2% 400 MG/20 ML MDV 10 ML INJ (08:31)
--- NOTE | 2025-04-14 08:35 | P.ON_ITS ---
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 The site was marked.? Written informed consent was obtained and placed on the chart.? The patient was brought to the medical procedure unit and placed in the prone position.? A timeout was completed verifying correct patient, procedure, positioning, and special requirements.? The skin overlying the target points, the designated intercostal nerve, was prepped and draped in the usual sterile fashion.? The target point was achieved with a 20-gauge 5 cm with a 10 mm curved active tip radiofrequency cannula under direct fluoroscopic visualization.? The needle was inserted at left T8.? Motor stimulation was carried out at 2 Hz up to 5 volts with the absence of motor activity.? This was repeated at level left T9, 10.?? Sensory stimulation was carried out.? Concordant pain was realized at the above- mentioned sites.? Then radiofrequency lesioning was carried out times 90 seconds at 80 degrees times 2 lesions at each level.? The radiofrequency probe was removed prior to cannula removal.? The above-mentioned injectate was placed in 1 mL increments.? The needle was removed.? Insertion sites were covered.? The patient was taken to the postoperative recovery area and monitored for an appropriate length of time before being found suitable for discharge in the company of a responsible adult. Anesthesia: Local Surgeon: Ace Ahumada Pathology: none sent Condition: stable Disposition: no change
== END 2025-04-14 08:38 | disposition home or self-care (01) ==
LOC: SURGOUT 07:24
PROVIDERS: PCP Family Medicine; Visit Provider Anesthesiology
DX: G58.0 Intercostal neuropathy (principal)
CPT/HCPCS: 64620; J0665; J1100

== ENCOUNTER 2025-04-30 07:37 | Outpatient (OUT) | payer OTHER, MEDICARE, SELFPAY ==
--- OUTSIDE RECORDS SUMMARY | 2024-12-10 07:30 | XMS_ITS ---
Author Organization [facility] in [place] Address [address] [place] [address] Care Team Providers Care Chain Testing Machine Operator Name Role Phone Rigo Grant DO Primary Care Provider Jacob Ahuja Unavailable [phone] REASON FOR VISIT rt foot Medications Medication [...] Encounters Encounter Location Date Provider Diagnosis [facility] (PODIATRY) [address] [place] [address] [place] [address] 12/10/2024 Jacob Felix Pain due to bone [...] Mary FUENTES DDOB:[birth year] (54 yo F)Acc No.[id number]:12/10/2024 Follow Up Patient: Mary ROSADO Provider: Leo Felix DPM, MS :1970 A ge:54 Y S ex:Female Date:12/10/2024 Address:[address] [place] [address] [id number] Pcp:Rigo Grant, DO Check In:11:31 AM [...] bedtime Orally Once a day Requip Trelegy Ellipta(Fqptzrfpndp-Jymxpqset-Hjjwvv) 100-62.5-25 MCG/ACT Aerosol Powder Breath Activated Inhalation [...] Once a day Taking Requip Taking Trelegy Ellipta(Lvgehmwaztr-Ezoqtxqqk-Cgzxsw) 100-62.5-25 MCG/ACT Aerosol Powder Breath Activated Inhalation [...] * Provider: Leo Felix DPM, MS Date: 0 12/10/2024 Generated for Philippe ardon/Osmin/Nilay on: 0 04/30/2025 07:43 AM EDT History and Physical Notes * [...]
--- OUTSIDE RECORDS SUMMARY | 2024-12-12 10:47 | XMS_ITS | Continuity of Care Document ---
Author Organization [facility] Address [address] [place] [address] Phone Care Team Providers Care Plating Stripper Name Role Phone Litzy HILL, Anibal Unavailable Unavailable Allergies, Adverse Reactions, Alerts Substance Reaction Status Criticality risperidone Active No Information Medications Medication Instructions Dosage Effective Dates (start - stop) Status Comments losartan 25 mg tablet take 1 tablet by o ral route every day 25 MG - Active Concerta 54 mg tablet,extended release take 1 tablet by oral route every day in the morning 54 MG - Active vitamin D2 20 mcg-vitamin K1 120 mcg/4 drops oral - Active iron 325 mg (65 mg iron) tablet take 1 tablet by oral route every day 325 MG - Active colestipol 1 gram tablet take 2 tablet by oral route 2 times every day swallowing whole with any liquid. Do not crush, chew and/or divide. 2 G - Active estradiol 1 mg tablet take 1 tablet by o ral route every day 1 MG - Active Remeron 15 mg tablet take 1 tablet by or al route every day before bedtime 15 MG - Active Abilify 30 mg tablet take 1 tablet by or al route every day 30 MG - Active Quviviq 25 mg tablet take 1 tablet by or al route once per night within 30 minutes of bedtime. (Only if at least 7 hrs remain before time of waking) 25 MG - Active atenolol 25 mg tablet take 1 tablet by o ral route every day 25 MG - Active ropinirole 2 mg tablet take 1 tablet by oral route 3 times every day 2 MG - Active Problems Condition Type Effective Dates (start - stop) Clini viraj Status Comments No Known Problems Procedures Procedure Date Resin Composite 2s; Posterior 5 Resin Composite 2s; Posterior Oral Hygiene Instruction Resin Composite 3s; Posterior Oral Hygiene Instruction Intraoral-complete Series (bw) Oral Hygiene Instruction Comp Oral Eval New/estab Patient 2024 High Risk Prophylaxis Adult Nutrit Couns For Control Of [place] Dis Nov Oral Hygiene Instruction Oral Hygiene Instruction [id number]-[id number] Additional Oct Bitewig-single Film Limited Oral Eval Bitewings Four Films Intraoral-periapical 1st Film Prophylaxis Adult Moderate Risk Nutrit Couns For Control Of [place] Dis Jan Oral Hygiene Instruction Nutrit Couns For Control Of [place] Dis Sep No Charge Limited Oral Eval Extract; Erupted Th/exposted Rt - 021 [id number]-qlbjhibcmb-[id number] Additional Aug Nutrit Couns For Control Of [place] Dis Aug Pfizer COVID Vaccine Admin Dose 2 COVID-19 Pfizer Extract; Erupted Th/exposted Rt - 021 Intraoral-periapical 1st Film 1 Pfizer COVID Vaccine Admin Dose 1 COVID-19 Pfizer Bitewings-two Films Oral Hygiene Instruction Limited Oral Eval Bitewig-single Film Intraoral-periapical 1st Film 9 Oral Hygiene Instruction Limited Oral Eval Intraoral-periapical 1st Film 9 Bitewig-single Film Limited Oral Eval Oral Hygiene Instruction Intraoral-complete Series (bw) Comp Oral Eval New/estab Patient 2018 Intraoral-complete Series (bw) Oral Hygiene Instruction TB INTRADERMAL TEST Advance Directives Directive Yes / No Effective Date File Name No Information Encounters Encounter Description Practice Location Reason(s) For Visit Diagnoses Date Provider Providers Copied on Encounter [facility], [address] [place] [address], [id number], [place] tel:[phone] Dental Clinic risa (chief complaint) Encounter for screening for dental disorders Litzy HILL Anibal. [address] [place] [address], [id number] , [place]. tel:[phone] [facility], [address] [place] [address], [id number], [place] tel:[phone] Dental Clinic risa (chief complaint) Body mass index [BMI] 25.0-25.9, adultEncounter for screening for dental disorders Litzy HILL Anibal. [address] [place] [address], [id number] , [place]. tel:[phone] [facility], [address] [place] [address], [id number], [place] tel:[phone] Dental Clinic dental new (chief complaint) Encounter for screening for dental disorders Litzy HILL Anibal. [address] [place] [address], [id number] , [place]. tel:[phone] [facility], [address] [place] [address], [id number], [place] tel:[phone] Dental Clinic DL (chief complaint) Encounter for screening for dental disorders Dolores HILL Prosper. [address] [place] [address], [id number], [place]. tel:[phone] [facility], [address] [place] [address], [id number], [place] tel:[phone] Dental Clinic PRO (chief complaint) Encounter for screening for dental disorders Catrachita Rutledge. . tel:[phone] [facility], [address] [place], [place], [id number], [place] tel:[phone] Dental Clinic filling (chief complaint) Encounter for screening for dental disorders Abdiel Mac. [address] [place], [address], [place]. tel:[phone] [facility], [address] [place] [place], [place], [id number], [place] tel:[phone] Dental Clinic filling (chief complaint) Encounter for screening for dental disorders Abdiel Mac. [address] [place], [address], [place]. tel:[phone] [facility], [address] [place] [address], [id number], [place] tel:[phone] [facility] No Information Regina Camacho. [address] [place], [place], [id number] , [place]. tel: [phone] [facility], [address] [place] [address], [id number], [place] tel:[phone] Dental Clinic Ext. (chief complaint) Encounter for screening for dental disorders Abdiel Mac. [address] [place], [address], [place]. tel:[phone] [facility], [address] [place], [place], [id number], [place] tel:[phone] [facility] Encounter for screening for dental disorders Regina Camacho. [address] [place], [place], [id number] , [place]. tel:[phone] [facility], [address] [place] [place], [place], [id number], [place] tel:[phone] Dental Clinic Encounter for screening for dental disorders Abdiel Mac. [address] [place], [address], [place]. tel:[phone] [facility], [address] [place] [place], [place], [id number], [place] tel:[phone] Dental Clinic dental limited (chief complaint) Encounter for screening for dental disorders Yogesh Arreaga. [address] [place] [place], [place], [id number] , [place]. tel:[phone] [facility], [address] [place] [address], [id number], [place] tel:[phone] Dental Clinic Dental New (chief complaint) Encounter for screening for dental disorders Yogesh Arreaga. [address] [place], [place], [id number] , [place]. tel:[phone] [facility], [address] [place] [address], [id number], [place] tel:[phone] Dental Clinic Encounter for screening for dental disorders Yogesh Arreaga. [address] [place], [place], [id number] , [place]. tel:[phone] [facility], [address] [place] [address], [id number], [place] tel:[phone] [facility] No Information Visci DO Chuy. [address] [place], [place], [id number] , [place]. [phone] Family History Family Member Type Diagnosis Age At Onset Father Problem (finding) hypertension Mother Problem (finding) dementia Father Problem (finding) atrial fibrillation Immunizations Vaccine Date Status Comments Pfizer COVID administered Source: New Imm unization Record Pfizer COVID administered Source: New Imm unization Record Payers Payer name Insurance type Covered constitution party ID Authorsofiaa lauro(s) D [facility] Dental Dual Elig [id number] D Medicaid Crossover [id number] [place] [employer] 190 [id number] Medicaid Wrap - [facility] [id number] [place] [employer] 190 [id number] Social History Type Description Quantity Date Captured Comments Alcohol Use Details Unknown Caffeine Use Details Unknown Tobacco Use Status Current non-smoker Smoking Status Never smoker Sex Female Sexual Orientation Straight or heterosexual Dec Gender Identity Female Chief Complaint And Reason For Visit From encounter dated '12/12/2024 14:47'. risa (chief complaint). Description: filling Reason For Referral Reason For Referral No Information Plan Of Treatment Date Type Action Status Goal Depression screening. Due on due Goal Hepatitis C screening. Due o n due Goal PRAPARE ASSESSMENT. Due on due Goal Zoster vaccine (). Due on due Goal HPV. Due on due Goal Colonoscopy. Due on 025 due Goal Mammogram. Due on due Goal FIT-DNA. Due on due Goal Lipid panel. Due on 025 due Goal Unhealthy drug use screening . Due on due Goal Tdap Vaccine. Due on [address]-Colonography. Due on due Goal Influenza vaccine. Due on due Goal FOBT. Due on due Goal FIT. Due on due Goal Tdap. Due on due Goal FIT-DNA. Due on due Goal Depression screening. Due on due Goal Lipid panel. Due on 025 due Goal Influenza vaccine. Due on due Goal FIT. Due on due Goal Mammogram. Due on due Goal Tdap. Due on due Goal Hepatitis C screening. Due o n due Goal Colonoscopy. Due on due Goal HPV. Due on due Goal Zoster vaccine (). Due on due Goal Tdap Vaccine. Due on 2024 due Goal Unhealthy drug use screening . Due on due Goal FOBT. Due on due Goal CT-Colonography. Due on due Goal PRAPARE ASSESSMENT. Due on due Goal Hep A. Due on du e Goal Dietary manageme nt education, guidance, and counseling completed Goal Hepatitis C screening. Due o n due Goal Depression screening. Due on due Goal Tdap Vaccine. Due on 2024 due Goal FIT-DNA. Due on due Goal Unhealthy drug use screening . Due on due Goal CT-Colonography. Due on due Goal Influenza vaccine. Due on due Goal FOBT. Due on due Goal Mammogram. Due on due Goal FIT. Due on due Goal Colonoscopy. Due on due Goal Tdap. Due on due Goal PRAPARE ASSESSMENT. Due on due Goal HPV. Due on due Goal Lipid panel. Due on due Goal Zoster vaccine (). Due on due Goal Hep A. Due on du e Goal FIT-DNA. Due on due Goal Zoster vaccine (). Due on due Goal PRAPARE ASSESSMENT. Due on due Goal HPV. Due on due Goal Mammogram. Due on due Goal FOBT. Due on due Goal Tdap Vaccine. Due on [address]-Colon[address]. Due on due Goal Unhealthy drug use screening . Due on due Goal FIT. Due on due Goal Depression screening. Due on due Goal Lipid panel. Due on 023 due Goal Hepatitis C screening. Due o n due Goal Tdap. Due on due Goal Influenza vaccine. Due on due Goal Colonoscopy. Due on due Goal Colonoscopy. Due on due Goal Lipid panel. Due on due Goal Mammogram. Due on due Goal PRAPARE ASSESSMENT. Due on M due Goal Tdap Vaccine. Due on 2022 due Goal Influenza vaccine. Due on Ma due Goal FOBT. Due on due Goal Zoster vaccine (). Due on due Goal Depression screening. Due on due Goal Tdap. Due on due Referral Ordered: Dentistry (related to Encounter for screening for dental disorders) ordered Referral Ordered: Referrals: Dentistry. Consult ordered Appointment Mary Leal BOOKED History Of Present Illness Encounter Date Complaint History Of Prese nt Illness risa filling risa filling dental new dental new , re- estab dental care DL DL PRO filling filliing filling filling Ext. dental limited dental limited, tooth pain, sensitivity Dental New Functional Status Date Functional Assessmen t No Information Instructions Date Instruction Additional Infor mation Giving encouragement to exercise Related to Body mass index [BMI] 25.0-25.9, adult Dietary management e ducation, guidance, and counseling Related to Body mass index [BMI] 25.0-25.9, adult Assessments Type Assessment Date No Information Patient Care Teams Name Effective Dates (start - stop) Status Members No Information
--- OUTSIDE RECORDS SUMMARY | 2025-01-03 04:45 | XMS_ITS ---
Author Organization [facility] in [place] Address [address] [place] [address] Care Team Providers Care Tread Booker Name Role Phone Rigo Grant DO Primary Care Provider Jacob Ahuja Unavailable [phone] Allergies No Known Allergies Reason For Referral Reason Compression stocking s Diagnosis 1 Right foot pain (M79 .671) Referral Organization [facility] [place] (PODIATRY) Referring Provider First Name Jacob Referring [...] Encounters Encounter Location Date Provider Diagnosis [facility] (PODIATRY) [address] [place] [address] [place] [address] 01/03/2025 Jacob [facility] Posterior tibial tendon dysfunction (PTTD) of right [...] well as stretching exercises. Finally I prescribed Wild [place] 5/325 1 by mouth every 6 hours [...] well as stretching exercises. Finally I prescribed [place] 5/325 1 by mouth every 6 hours [...] Mary FUENTES DDOB:[birth year] (54 yo F)Acc No.[id number]:01/03/2025 Follow Up Patient: Siria CUEVA Mary Kenny Provider: Leo Felix DPM MS :1970 A ge:54 Y S ex:Female Date:01/03/2025 Address:[address] [place] [address] [facility] Pcp:Rigo Grant, DO Check In:08:45 AM [...] bedtime Orally Once a day Requip Trelegy Ellipta(Shqthgwctml-Zzudwqbnl-Zztvfo) 100-62.5-25 MCG/ACT Aerosol Powder Breath Activated Inhalation [...] Once a day Taking Requip Taking Trelegy Ellipta(Plpfmvbdyls-Tcavzqqsq-Nahcdy) 100-62.5-25 MCG/ACT Aerosol Powder Breath Activated Inhalation [...] 01/03/2025 Generated for Philippe ardon/Osmin/Stephanieitting on: 0 04/30/2025 07:41 AM EDT History and Physical Notes * [...]
--- OUTSIDE RECORDS SUMMARY | 2025-01-03 05:38 | XMS_ITS ---
Author Organization The [facility] in [place] Address [address] [place] [address] Care Team Providers Care Air Pollution Analyst Name Role Phone Rudy LOAIZARigo Primary Care Provider Jacob Ahuja [phone] REASON FOR VISIT pain medication Medications Medication SIG (Take, Route, Frequency, Duration) Notes Start Date End Date Status HYDROcodone-Acetaminophen 5-325 MG 1 tablet as needed Orally every 6 hrs for 7 days 01/03/2025 Active Encounters Encounter Location Date Provider Diagnosis [facility] (PODIATRY) [address] [place] [address] [place] [address] 01/03/2025 Jacob Felix Plan Of Treatment Medication Medication Name Sig Start Date Stop Date Notes HYDROcodone-Acetaminophen 5- 325 MG 1 tablet as needed Orally every 6 hrs for 7 days 01/03/2025 Progress Notes * Mary FUENTES DDOB:[birth year] (54 yo F)Acc No.[id number]:01/03/2025 Patient: Siria Mary CUEVA :1970 A ge:54 Y S ex:Female Address:[place] [address] * Refills Start HYDROcodone-Acetaminophen Tablet, 5-325 MG, Orally, 28 Tablet, 1 tablet as needed, every 6 hrs, 7 days, Refills=0 * true * Date: Generated for Printi ng/Faxing/eTransmitting on: 0 04/30/2025 07:41 AM EDT
--- OUTSIDE RECORDS SUMMARY | 2025-04-30 07:41 | XMS_ITS | Encounter Summary ---
Author Organization [facility] Address [address] [place] [address] Care Team Providers Care Business Systems Lead Name Role Phone Eliceo Gómez DO Primary Care Provider [phone] Eliceo Gómez DO Unavailable [phone] Beata Hernandez Unavailable Juan Damico DO Unavailable [phone] Encounter Details Date Type Department Care Team (Late st Contact Info) Description 11/24/2023 Abstract [facility] [address] [facility] [address] [place] [phone] Eliceo Gómez, DO [address] [facility] [address] [place] [address] Social History Tobacco Use Types Packs/Day Years [...] How often do you attend chur or gnosticist services? Never 04/14/2023 Do you [...] DERM [address] [place] [address] Nelsy Harris, SOCCER BALL ASSEMBLER-FRENCH PROFESSOR [address] [place], [place] [phone] documented as of this encounter Visit Diagnoses Not on filedocumented in this encounter Care Teams Business Systems Lead Relationship Specialty Start Date End Date Eliceo Gómez DO [address] [place] [address] PCP - General Family Medicine 04/04/23 Eliceo Gómez DO [address] [place] [address] [facility] [employer] 05/06/2310/05 Beata Hernandez PA [address] [place] [address] Dietitian Nutrition 08/08/23 05/16/24 Juan Damico, [address] [place] [address] Referring Physician Obstetrics and Gynecology 05/20/24 documented as of this encounter
--- OUTSIDE RECORDS SUMMARY | 2025-04-30 07:41 | XMS_ITS | Encounter Summary ---
Author Organization [facility] enter Address [address] [place] [address] Care Team Providers Care It Help Desk Manager Name Role Phone Shannon Gómez DO Primary Care Provider + [phone] Reason for Visit * Reason Onset Date Comments Medication Refill 11/27/2024 Results 11/27/2024 Pt thought outsi de facility sent results adv we havent received anything and gave fax number of [phone]. Encounter Details Date Type Department Care Team (Late st Contact Info) Description 11/27/2024 Telephone Central Scheduling [address] [place] [address] Kelly Sidhu Medication Refill; Results (Pt thought outside facility sent results adv we havent received anything and gave fax number of [phone].) Social History Tobacco Use Types Packs/Day Years [...] IS ATTACHED TO ENCOUNTER [id number] [place] [address] - [address] [facility] documented in this encounter Plan of Treatment Not on file documented as of this encounter Visit Diagnoses Not on filedocumented in this encounter Care Teams It Help Desk Manager Relationship Specialty Start Date End Date Shannon Gómez DO [address] [facility] [address] [place] [address] PCP - General Family Medicine 11/14/23 documented as of this encounter
--- OUTSIDE RECORDS SUMMARY | 2025-04-30 07:41 | XMS_ITS | Encounter Summary ---
Author Organization [facility] Address [address] [facility] [place] [address] Care Team Providers Care Marine Air Ground Task Force Planners Name Role Phone Eliceo Gómez DO Primary Care Provider [phone] Eliceo Gómez DO Unavailable [phone] Juna Damico DO Unavailable [phone] Encounter Details Date Type Department Care Team (Late st Contact Info) Description 09/16/2024 Abstract [facility] [address] [facility] [address] [place] [address] Eliceo Gómez DO [address] [facility] 230 [place] [address] Social History Tobacco Use Types Packs/Day Years [...] attend chur or latter day services? Never 05/01/2024 Do you belong to [...] 0 07/11/2024 [facility] - Occupational Stress [...] time in the past 12 [address] [facility], were you homeless or living [...] DERM [address] [place] [address] Nelsy Harris, SIDE BOSS-SHAREPOINT SOLUTIONS DEVELOPER [address] [place] [address] documented as of this encounter Visit Diagnoses Not on filedocumented in this encounter Care Teams [employer] Task Force Planners Relationship Specialty Start Date End Date Eliceo Gómez, DO [address] [place] [address] PCP - General Family Medicine 04/04/23 Eliceo Gómez, DO [address] [place] [address] PCP - [facility] 05/06/2310/05 Juan Damico, DO [address] [place] [address] Referring Physician Obstetrics and Gynecology 05/20/24 documented as of this encounter
--- OUTSIDE RECORDS SUMMARY | 2025-04-30 07:41 | XMS_ITS | Encounter Summary ---
Author Organization [facility] Address [address] [facility] [place] [address] Care Team Providers Care Hat Finishing Materials Preparer Name Role Phone Eliceo Gómez DO Primary Care Provider [phone] Eliceo Gómez DO Unavailable [phone] Beata Hernandez Unavailable Juan Damico DO Unavailable [phone] Encounter Details Date Type Department Care Team (Late st Contact Info) Description 12/14/2023 Orders Only [facility] [address] [place] [id number] A, Unknown Practice [address] [place] [phone] Social History Tobacco Use Types Packs/Day Years [...] How often do you attend chur or jewish services? Never 04/14/2023 Do you belong to [...] Recorded Patient Health Questionnaire-2 Score 0 10/03/2023 [facility] Occupat ional Health - [...] DERM [address] [place] [address] Nelsy Harris APRN-MEDICAL TECHNICIANS [address] [place] [address] documented as of this encounter Procedures Procedure [...] filedocumented in this encounter Care Teams Hat Finishing Materials Preparer Relationship Specialty Start Date End Date Eliceo Gómez DO [address] [place] [address] PCP - General Family Medicine 04/04/23 Eliceo Gómez DO [address] [facility] 230 [place] [address] PCP - [facility] 05/06/2310/05 Beata Hernandez PA [address] [facility] [address] [place] [address] Dietitian Nutrition 08/08/23 05/16/24 Juan Damico DO [address] [facility] [place] [address] Referring Physician Obstetrics and Gynecology 05/20/24 documented as of this encounter
--- OUTSIDE RECORDS SUMMARY | 2025-04-30 07:41 | XMS_ITS | Encounter Summary ---
Author Organization [employer] Address [id number] [address] [place] [address] Care Team Providers Care Assembler Finger Buffs Name Role Phone Stephonmame Morales Eliceo Braden Primary Care Provider + Reason for Visit * Reason Comments Med Refill Encounter Details Date Type Department Care Team (Late st Contact Info) Description 01/09/2021 Refill [facility] Neurology [address] [place] [phone] Pauline Christensen MD [address] [place] [address], [facility] [address] [place] [address] Chronic mixed headache syndrome Social [...] Care Team (Late st Contact Info) Description 06/17/2025 8:15 AM EDT Office Visit [facility], [facility] Department of [address] [place] [address] Soraida Gama PA [address] [facility] [address] [place] [address] documented as of this encounter Visit Diagnoses Diagnosis Chronic mixed headache syndrome Other headache syndromes documented in this encounter Care Teams Assembler Finger Buffs Relationship Specialty Start Date End Date Eliceo Gómez Jr., [address] [place] [address], [address], [place] [address] PCP - General Family Medicine 12/11/19 Jenna Butler [address] [place] [address] Consulting Physician Behavioral Health 12/20/23 documented as of this encounter
--- OUTSIDE RECORDS SUMMARY | 2025-04-30 07:41 | XMS_ITS | Encounter Summary ---
Author Organization [employer] Address [id number] [address] [place] [address] Care Team Providers Care Technical Professional Name Role Phone Dalia Morales DO, George R Primary Care Provider + Encounter Details Date Type Department Care Team (Late st Contact Info) Description 01/04/2021 Orders Only [facility] Pulmonary/Sleep Medicine [address] [facility] [place] [place] [address] Daisy Ley LPN Asthma, unspecified asthma [...] Description 06/17/2025 8:15 AM EDT Office Visit [facility], A Department of [facility] [address] [facility] [address] [place] [address] Soraida Gama PA [address] [facility] [address] [place] [address] documented as of this encounter Procedures Procedure [...] Alpha 1 antitrypsin targeting genotyping (12/25/2020) 12/25/2020 [facility] BUSINESS MANAGEMENT MANAGER-VICE PRESIDENT TAX LAB BLOOD ORDERABLES Fi nal Result Performing Organization Address [facility] de Phone Number [facility] * Immunoglobulins (12/25/2020) 12/25/2020 [facility] BUSINESS MANAGEMENT MANAGER-VICE PRESIDENT TAX LAB BLOOD ORDERABLES Fi nal Result Performing Organization Address City/[facility]/ZIP Co de Phone Number QUEST * Respiratory allergy panel (12/25/2020) Blood Venous blood / Unknown 12/25/2020 [facility] BUSINESS MANAGEMENT MANAGER-VICE PRESIDENT TAX LAB BLOOD ORDERABLES Fi nal Result Performing Organization Address City/[facility] Co de Phone Number [facility]ST documented in this encounter Visit Diagnoses Diagnosis Asthma, unspecified asthma severity, unspecified whether complicated, unspecified whether persistent documented in this encounter Care Teams Technical Professional Relationship Specialty Start Date End Date Eliceo Gómez Jr., DO [address] [place] [address], [address] [place] [address] PCP - General Family Medicine 12/11/19 Jenna Butler [address] Consulting Physician Behavioral Health 12/20/23 documented as of this encounter
--- OUTSIDE RECORDS SUMMARY | 2025-04-30 07:41 | XMS_ITS | Encounter Summary ---
Author Organization [facility] Address [address] [place] [address] Care Team Providers Care Pastry Mixer Name Role Phone Eliceo Gómez DO Primary Care Provider [phone] Eliceo Gómez DO Unavailable [phone] Beata Hernandez Unavailable Juan Damico DO Unavailable [phone] Encounter Details Date Type Department Care Team (Late st Contact Info) Description 01/11/2024 Abstract [facility] [address] [facility] [address] [place] [phone] Eliceo Gómez, DO [address] [facility] [address] [place] [address] Social History Tobacco Use Types Packs/Day Years [...] Score 0 10/03/2023 [facility] of Occupat ional Health - Occupational [...] DERM [address] [place] [address] Nelsy Harris, [employer] LABORER-BOOKS SALESPERSON [address] [place], [place] [address] documented as of this encounter Visit Diagnoses Not on filedocumented in this encounter Care Teams Pastry Mixer Relationship Specialty Start Date End Date Eliceo Gómez DO [address] [place] [address] PCP - General Family Medicine 04/04/23 Eliceo Gómez DO [address] [place] [address] [facility] 05/06/2310/05 Beata Hernandez PA [address] [place] [address] Dietitian Nutrition 08/08/23 05/16/24 Juan Damico, [address] [place] [address] Referring Physician Obstetrics and Gynecology 05/20/24 documented as of this encounter
--- OUTSIDE RECORDS SUMMARY | 2025-04-30 07:41 | XMS_ITS | Encounter Summary ---
Author Organization [facility] Address [address] [place] [address] Care Team Providers Care Tractor Sweeper Driver Name Role Phone Eliceo Gómez DO Primary Care Provider [phone] Eliceo Gómez DO Unavailable [phone] Beata Hernandez Unavailable Juan Damico DO Unavailable [phone] Encounter Details Date Type Department Care Team [...] often do you attend chur ch or hoahaoism services? Never 04/14/2023 Do you [...] Recorded Patient Health Questionnaire-2 Score 0 10/03/2023 [facility] - Occupational Stress Questionnaire Answer Date [...] DERM [address] [place] [phone] Nelsy Harris APRN-OTOLARYNGOLOGY REP [address] [place] [address] documented as of this encounter Procedures Procedure Name Priority Date/Time Associated Diagnosis Comments MR CERVICAL SPINE WO CONTRAST 12/19/2023 7:59 AM EST documented in this encounter Results * MR cervical spine wo contrast (12/19/2023 7:59 AM EST) Anatomical Region Laterality Modality Spine, C-spine Magnetic Resonan ce 12/19/2023 7:59 AM EST Narrative 12/19/2023 8:02 AM EST The [address] [address] Magnetic Resonance Report Signed Patient: MARY FUENTES MR#: [id number] : 1970 Acct:[id number] Age/Sex: 53 / F ADM Date: 12/19/23 Loc: MRI Attending Dr: Ace Ahumada M.D. Ordering Physician: Ace Ahumada M.D. Date of Service: 12/19/23 Procedure(s): MR cervical spine wo con Accession Number(s): [id number] cc: Ace Ahumada M.D.; Isatu GÓMEZ [place] [id number] Patient Name: MARY FUENTES MRN: [id number] date: 1970 Sex: F Assigned Patient Location: MRI Current Patient Location: MRI Accession/Order Number: [id number] Exam Date: 12/19/2023 07:03 Report Date: 12/19/2023 07:59 At the request of: CAE AHUMADA Procedure: MR cervical spine wo con [...] Signed By: 12/19/23 0802 DD/ 0759 TD/TT: Nylon Winder: Procedure Note Radiology, Radiologist, MD - 12/19/2023 [place] [address] Magnetic Resonance Report Signed Patient: MARY FUENTES DMR#: [id number] : 1970Acct:[id number] Age/Sex: 53 / FADM Date: 12/19/23 Loc: MRI Attending Dr: Ace Ahumada M.D. Ordering Physician: Ace Ahumada M.D. Date of Service: 12/19/23 Procedure(s): MR cervical spine wo con Accession Number(s): [id number] cc: Ace Ahumada M.D.; Isatu GÓMEZ [place] [address] Patient Name: MARY FUENTES MRN: [facility]:[id number] date: 1970 Sex: F Assigned Patient Location: MRI Current Patient Location: MRI Accession/Order Number: [id number] Exam Date: 12/19/2023 07:03 Report Date: 12/19/2023 [...] M.D. Signed By:12/19/23 0802 DD/ 0759 TD/TT: Nylon Winder: us Generic External Data Provider IMG MRI PROCEDURE S Final Result documented in this encounter Visit Diagnoses Not on filedocumented in this encounter Care Teams Tractor Sweeper Driver Relationship Specialty Start Date End Date Eliceo Gómez DO [address] [place] [address] PCP - General Family Medicine 04/04/23 Eliceo Gómez DO [address] [place] [address] PCP - [facility] 05/06/2310/05 Beata Hernandez PA [address] [place] [address] Dietitian Nutrition 08/08/23 05/16/24 Juan Damico DO [address] [place] [address] Referring Physician Obstetrics and Gynecology 05/20/24 documented as of this encounter
--- OUTSIDE RECORDS SUMMARY | 2025-04-30 07:41 | XMS_ITS | Encounter Summary ---
Author Organization [facility] Address [address] [place] [address] Care Team Providers Care Geospatial Program Management Officer Name Role Phone Eliceo Gómez DO Primary Care Provider [phone] Eliceo Gómez DO Unavailable [phone] Beata Hernandez Unavailable Juan Damico DO Unavailable [phone] Encounter Details Date Type Department Care Team [...] often do you attend chur ch or nondenominational services? Never 04/14/2023 Do you belong to [...] Recorded Patient Health Questionnaire-2 Score 0 10/03/2023 [facility] - Occupational Stress Questionnaire Answer [...] in a jail (including now)? No 10/25/2023 Comments No Sex [...] DERM [address] [place] [phone] Nelsy Harris APRN-ENVIRONMENTAL SERVICES AIDE [address] [place] [address] documented as of this encounter Procedures Procedure Name Priority Date/Time Associated Diagnosis Comments XR SACRUM COCCYX 2+ VIEWS 12/14/2023 1:52 PM EST documented in this encounter Results * XR sacrum coccyx 2+ views (12/14/2023 1:52 PM EST) Anatomical Region Laterality Modality Sacrum, Coccyx Radiographic Ira ging 12/14/2023 1:52 PM EST Narrative 12/14/2023 1:54 PM EST The [address] [address] XRay Report Signed Patient: MARY FUENTES MR#: [id number] : 1970 Acct:[id number] Age/Sex: 53 / F ADM Date: 12/14/23 Loc: [facility] Attending Dr: Ace Ahumada M.D. Ordering Physician: Ace Ahumada M.D. Date of Service: 12/14/23 Procedure(s): XR sacrum coccyx min 2V Accession Number(s): [id number] cc: Ace Ahumada M.D.; Isatu GÓMEZ [place] [address] Patient Name: MARY FUENTES MRN: [id number] date: 1970 Sex: F Assigned Patient Location: [facility] Current Patient Location: [facility] Accession/Order Number: [id number] Exam Date: 12/14/2023 13:00 Report Date: 12/14/2023 [...] Signed By: 12/14/23 1356 DD/ 1352 TD/TT: Assistant Professor Of German: Procedure Note Radiology, Radiologist, - 12/14/2023 [place] [address] XRay Report Signed Patient: MARY FUENTES DMR#: [id number] : 1970Acct:[id number] Age/Sex: 53 / FADM Date: 12/14/23 Loc: RAD Attending Dr: Ace Ahumada M.D. Ordering Physician: Ace Ahumada M.D. Date of Service: 12/14/23 Procedure(s): XR sacrum coccyx min 2V Accession Number(s): [id number] cc: Ace Ahumada M.D.; Isatu GÓMEZ [place] [address] Patient Name: MARY FUENTES MRN: [id number] date: 1970 Sex: F Assigned Patient Location: [facility] Current Patient Location: [facility] Accession/Order Number: [id number] Exam Date: 12/14/2023 13:00 Report Date: 12/14/2023 [...] Dictated By: Nicki Dacosta M.D. Signed By:12/14/23 135 DD/ 1352 TD/TT: Assistant Professor Of German: us Generic External Data Provider IMG XR PROCEDURES Final Result documented in this encounter Visit Diagnoses Not on filedocumented in this encounter Care Teams Geospatial Program Management Officer Relationship Specialty Start Date End Date Eliceo Gómez DO [address] [place] [address] PCP - General Family Medicine 04/04/23 Eliceo Gómez DO [address] [place] [address] PCP - [facility] 05/06/2310/05 Beata Hernandez PA [address] [place] [address] Dietitian Nutrition 08/08/23 05/16/24 Juan Damico DO [address] [place] [address] Referring Physician Obstetrics and Gynecology 05/20/24 documented as of this encounter
--- OUTSIDE RECORDS SUMMARY | 2025-04-30 07:41 | XMS_ITS | Clinical Summary ---
Author Organization [facility] Address [address] [place] [address] [place] [address] Care Team Providers Care Signal Tower Director Name Role Phone Shannon Gómez DO Primary [...] Active omeprazole [address] capsuleIndicati ons:Derby grade D esophagitis TAKE 1 CAPSULE BY [...] Team Description 02/16/2025 Refill Gastroenterology and Hepatology [facility] [place] [facility] [address] [address] Padmaja Ledezma MD, PhD Chronic [...] Insurance MEDICAID MEDICARE UHC HMO Care Teams Signal Tower Director Relationship Specialty Start Date End Date Shannon Gómez DO [address] [id number] PCP - General Family Medicine 11/14/23
--- OUTSIDE RECORDS SUMMARY | 2025-04-30 07:41 | XMS_ITS | Encounter Summary ---
Author Organization [facility] Address [address] [place] [address] Care Team Providers Care Conveyor Loader Name Role Phone Eliceo Gómez DO Primary Care Provider [phone] Elcieo Gómez DO Unavailable [phone] Beata Hernandez Unavailable Juan Damico DO Unavailable [phone] Encounter Details Date Type Department Care Team [...] often do you attend chur ch or church services? Never 04/14/2023 Do you belong to [...] Patient Health Questionnaire-2 Score 0 10/03/2023 [facility] - Occupational Stress Questionnaire Answer [...] [address] [place] [address] Nelsy Harris APRN-MANDOLIN REPAIRER [address] [place] [address] documented as of this encounter Procedures Procedure Name Priority Date/Time Associated Diagnosis Comments XR LUMBAR SPINE 6V W BENDING 12/14/2023 1:52 PM EST documented in this encounter Results * XR LUMBAR SPINE 6V W BENDING (12/14/2023 1:52 PM EST) Anatomical Region Laterality Modality Other 12/14/2023 1:52 PM EST Narrative 12/14/2023 1:54 PM EST The [address] [address] XRay Report Signed Patient: ELSIE FUENTES MR#: [id number] : 1970 Acct:[id number] Age/Sex: 53 / F ADM Date: 12/14/23 Loc: [facility] Attending Dr: Ace Ahumada M.D. Ordering Physician: Ace Ahumada M.D. Date of Service: 12/14/23 Procedure(s): XR lumbar spine 6V w bending Accession Number(s): [id number] cc: Ace Ahumada M.D.; Isatu GÓMEZ [place] [address] Patient Name: ELSIE FUENTES MRN: [id number] date: 1970 Sex: F Assigned Patient Location: [facility] Current Patient Location: [facility] Accession/Order Number: [id number] Exam Date: 12/14/2023 13:00 Report Date: 12/14/2023 [...] Signed By: 12/14/23 1354 DD/ 1352 TD/TT: Premix Operator Concentrate: Procedure Note Radiology, Radiologist, MD - 12/14/2023 [place] [address] XRay Report Signed Patient: ELSIE FUENTES DMR#: [id number] : 1970Acct:[id number] Age/Sex: 53 / FADM Date: 12/14/23 Loc: RAD Attending Dr: Ace Ahumada M.D. Ordering Physician: Ace Ahumada M.D. Date of Service: 12/14/23 Procedure(s): XR lumbar spine 6V w bending Accession Number(s): [id number] cc: Ace Ahumada M.D.; Isatu GÓMEZ [place] [id number] Patient Name: ELSIE FUENTES MRN: [id number] date: 1970 Sex: F Assigned Patient Location: [facility] Current Patient Location: [facility] Accession/Order Number: [id number] Exam Date: 12/14/2023 13:00 Report Date: 12/14/2023 [...] M.D. Signed By:12/14/23 1354 DD/ 1352 TD/TT: Premix Operator Concentrate: Generic External Data Provider [facility] Final Result documented in this encounter Visit Diagnoses Not on filedocumented in this encounter Care Teams Conveyor Loader Relationship Specialty Start Date End Date Eliceo Gómez DO [address] [facility] [address] [place] [phone] PCP - General Family Medicine 04/04/23 Eliceo Gómez DO [address] [place] [address] PCP - [facility] 05/06/2310/05 Beata Hernandez PA [address] [place] [address] Dietitian Nutrition 08/08/23 05/16/24 Juan Damico DO [address] [place] [address] Referring Physician Obstetrics and Gynecology 05/20/24 documented as of this encounter
--- OUTSIDE RECORDS SUMMARY | 2025-04-30 07:41 | XMS_ITS | Encounter Summary ---
Author Organization [facility] Address [address] [place] [address] Care Team Providers Care Ed Special Education Teacher Name Role Phone Eliceo Gómez DO Primary Care Provider [phone] Eliceo Gómez DO Unavailable [phone] Beata Hernandez Unavailable Juan Damico DO Unavailable [phone] Encounter Details Date Type Department Care Team (Late st Contact Info) Description 12/25/2023 Abstract [facility] [address] [facility] [address] [place] [address] Eliceo Gómez, DO [address] [facility] [address] [place] [address] Social History Tobacco Use Types Packs/Day Years [...] DERM [address] [place] [address] Nelsy Harris, PORTFOLIO DIRECTOR-WIND FIELD SERVICE MANAGER [address] [place], [place] [address] documented as of this encounter Visit Diagnoses Not on filedocumented in this encounter Care Teams Ed Special Education Teacher Relationship Specialty Start Date End Date Eliceo Gómez DO [address] [place] [address] PCP - General Family Medicine 04/04/23 Eliceo Gómez DO [address] [place] [address] [facility] 05/06/2310/05 Beata Hernandez PA [address] [place] [address] Dietitian Nutrition 08/08/23 05/16/24 Juan Damico, [address] [place] [address] Referring Physician Obstetrics and Gynecology 05/20/24 documented as of this encounter
--- OUTSIDE RECORDS SUMMARY | 2025-04-30 07:41 | XMS_ITS | Clinical Summary ---
Author Organization [employer] Address [id number] [address] [place] [address] Care Team Providers Care Staff Occupational Therapist Name Role Phone Dalia Morales DO Eliceo Braden Primary Care Provider + Allergies Active Allergy Reactions Criticality Noted Date Comments Risperidone Other (See Comments) Low 08/28/2020 My Boobs Leak Medications rOPINIRole (REQUIP) 2 mg tablet Take 1 tablet (2 mg total) by mouth nightly. 1 mg in the morning 020 Active dexlansoprazol e (DEXILANT) 60 mg capsuleIndicat ions:gastroeso phageal reflux disease Take 1 capsule (60 mg total) by mouth in the morning. Indications: gastroesophageal reflux disease. Active fluticasone-um eclidin-vilant er (TRELEGY ELLIPTA) 100-62.5-25 mcg blister with deviceIndicati ons:Asthma, unspecified asthma severity, unspecified whether complicated, unspecified whether persistent Inhale 1 puff in the morning. 60 each 5 022 Active atenoloL (TENORMIN) 25 mg tabletIndicati ons:hypertensi on Take 1 tablet (25 mg total) by mouth in the morning. Indications: high blood pressure. Active lamoTRIgine (LaMICtal) 25 mg tablet Take 1 tablet (25 mg total) by mouth in the morning. Active daridorexant 50 mg tablet Take 50 mg by mouth nightly. Active VYVANSE 30 mg capsule Take 1 capsule (30 mg total) by mouth. 023 Active ARIPiprazole (ABILIFY MAINTENA) 300 mg suspension,ext ended rel recon Inject 1.5 mL (300 mg total) into the appropriate muscle every 28 days. Active fremanezumab-v frm (AJOVY AUTOINJECTOR) 225 mg/1.5 mLIndications: Other migraine without status migrainosus, not intractable inject 1 AND 1/2 milliliters subcutaneously every 28 DAYS 1.5 mL 5 023 Active Additional Information Patient taking differently: subcutaneous, inject 1 AND 1/2 milliliters subcutaneously every 28 DAYS, Reported on 12/20/2023 rimegepant 75 mg tablet,disinte gratingIndicat ions:Other migraine without status migrainosus, not intractable Dissolve 1 tablet on tongue daily as needed (Migraine headache). 12 tablet 4 023 Active galcanezumab-g nlm (EMGALITY PEN) 120 mg/mL pen injectorIndica tions:Other migraine without status migrainosus, not intractable INJECT 120MG SUBCUTANEOUSLY ONCE EVERY 30 DAYS 1 mL 5 025 Active galcanezumab-g nlm 120 mg/mL pen injectorIndica tions:Other migraine without status migrainosus, not intractable Inject 120 mg under the skin every 30 (thirty) days. 1 mL 3 025 2024 Discontinued Hospital, Clinic, or Other Facility Administered Medication [...] Encounters Date Type Department Care Team Description 04/21/2025 Refill [facility] [address] [place] [address] Pauline Christensen MD Other migraine without status migrainosus, not intractable 04/10/2025 Travel from Last 3 Months Family History Medical [...] Description 06/17/2025 8:15 AM EDT Office Visit [facility] A Department of [facility] [address] [phone] Soraida Gama PA [address] [facility] [address] [place] [address] Health Maintenance Due Date Last Done Comments Zoster (Shingles) Vaccine (2 of 2) 05/31/2024 04/05/2024 COVID-19 Vaccine (4 2023-2 5 season) 2024 11/24/2021, 05/11/2021, 04/20/2021 Depression Screening 10/23/2024 10/23/2023 Adult BMI Screening 01/09/2025 01/10/2024 Tobacco Screening 01/09/2025 01/10/2024 Influenza Vaccine 07/07/2025 12/21/2023, , 09/02/2020, Additional history exists DTaP,Tdap and Td Vaccines (2 - Td or Tdap) 06/22/2030 06/22/2020 Medical Devices Implanted Type Area Overlock Sewing Machine Operator Device Identifier Shelf Expiration Date Model / Serial / Lot Generator Nrstm - [id number] Implanted:Qty: 1 on 01/02/2024 by Cullen Dawkins MD at [facility] Generator Right: Neck [employer] 09/20/2026 3028 / [id number] / Lead Ns [facility] - [id number] Implanted:Qty: 1 on 01/02/2024 by Cullen Dawkins MD at [facility] Implant Lead Right: Neck [employer] 10/20/2026 4340 / [id number] / Lead Nrstm Inspr 3 Elect Cuf Tnl Boni Strl Lf - [id number] - [id number] Implanted:Qty: 1 on 01/02/2024 by Cullen Dawkins MD at [facility] Neuro Stimulator Right: Neck [employer] 07/19/2026 4063 / [id number] / Insurance [place] Care Teams Staff Occupational Therapist Relationship Specialty Start Date End Date Eliceo Gómez Jr., DO [address] [place] [address], [address], [place] [address] PCP - General Family Medicine 12/11/19 Jenna Butler [address] Consulting Physician Behavioral Health 12/20/23
--- OUTSIDE RECORDS SUMMARY | 2025-04-30 07:41 | XMS_ITS | Encounter Summary ---
Author Organization [facility] Address [address] [place] [address] Care Team Providers Care Heeler Name Role Phone Shannon Gómez DO Primary Care Provider [phone] Reason for Visit * Reason Comments Medication Refill Encounter Details Date Type Department Care Team (Late st Contact Info) Description 02/16/2025 Refill Gastroenterology and Hepatology [facility] [address] [place] [address] [place] [address] Padmaja Ledezma MD, PhD [address] [facility] [address] [place] [address] Chronic diarrhea Social History Tobacco Use Types [...] (Premier protein); pt's secondary medicaid will not peanut picker the coverage of ONS since her primary [...] Diarrhea documented in this encounter Care Teams Heeler Relationship Specialty Start Date End Date Shannon Gómez DO [address] [facility] [address] [place] [phone] PCP - General Family Medicine 11/14/23 documented as of this encounter
--- OUTSIDE RECORDS SUMMARY | 2025-04-30 07:41 | XMS_ITS | Encounter Summary ---
Author Organization [facility] Address [address] [facility] [place] [address] Care Team Providers Care Bill Poster Installer Name Role Phone Eliceo Gómez DO Primary Care Provider [phone] Eliceo Gómez DO Unavailable [phone] Juan Damico DO Unavailable [phone] Encounter Details Date Type Department Care Team (Late st Contact Info) Description 04/02/2025 Abstract [facility] [address] [facility] 230 [place] [address] Eliceo Gómez DO [address] [facility] [address] [place] [address] Social History Tobacco Use Types Packs/Day Years [...] Patient Health Questionnaire-2 Score 0 01/20/2025 [facility]at iontn Health - Occupational Stress [...] any time in the past 12 m [facility], were you homeless or living in [...] DERM [address] [place] [address] Nelsy Harris, CONTROLLER OPERATIONS AND HR MANAGER-HOG SAWYER [address] [place] [address] documented as of this encounter Visit Diagnoses Not on filedocumented in this encounter Additional Health Concerns Assessment Noted Time PHQ-9 Depression Total Score: 0 01/21/20 25 1:00 PM EDT documented as of this encounter Care Teams Bill Poster Installer Relationship Specialty Start Date End Date Eliceo Gómez DO [address] [place] [address] PCP - General Family Medicine 04/04/23 Eliceo Gómez DO [address] [place] [address] PCP - [facility] 05/06/2310/05 Juan Damico DO [address] [place] [address] Referring Physician Obstetrics and Gynecology 05/20/24 documented as of this encounter
--- OUTSIDE RECORDS SUMMARY | 2025-04-30 07:42 | XMS_ITS | Encounter Summary ---
Author Organization [facility] Address [address] [facility] [place] [address] Care Team Providers Care Ore Charger Name Role Phone Eliceo Gómez DO Primary Care Provider [phone] Eliceo Gómez DO Unavailable [phone] Juan Damico DO Unavailable [phone] Encounter Details Date Type Department Care Team (Late st Contact Info) Description 11/20/2024 Abstract [facility] [address] [facility] 230 [place] [address] Eliceo Gómez DO [address] [facility] [address] [place] [address] Social History Tobacco Use Types Packs/Day Years [...] any clubs o r organizations such as christianity groups, unions, fraternal or athletic groups, or [...] Recorded Patient Health Questionnaire-2 Score 0 07/11/2024 [facility] of Occupat ionca Health - Occupational Stress [...] in a alf (including now)? No 10/25/2023 Housing Stability Vital [...] in the past 12 m [facility], were you homeless or living in a alf (including now)? No 05/01/2024 Comments No Sex [...] DERM [address] [place] [address] Nelsy Harris, PATCH FINISHER-CLINICAL APPEALS REVIEWER [address] [place] [address] documented as of this encounter Visit Diagnoses Not on filedocumented in this encounter Care Teams Ore Charger Relationship Specialty Start Date End Date Eliceo Gómez, DO [address] [place] [address] PCP - General Family Medicine 04/04/23 Eliceo Gómez, DO [address] [place] [address] PCP - [facility] 05/06/2310/05 Juan Damico, DO [address] [place] [address] Referring Physician Obstetrics and Gynecology 05/20/24 documented as of this encounter
--- OUTSIDE RECORDS SUMMARY | 2025-04-30 07:42 | XMS_ITS | Encounter Summary ---
Author Organization [facility] Address [address] [facility] [place] [address] Care Team Providers Care Hydraulic Spinner Name Role Phone Eliceo Gómez DO Primary Care Provider [phone] Eliceo Gómez DO Unavailable [phone] Juan Damico DO Unavailable [phone] Encounter Details Date Type Department Care Team (Late st Contact Info) Description 01/30/2025 Abstract [facility] [address] [facility] 230 [place] [address] Eliceo óGmez DO [address] [facility] [address] [place] [address] Social History Tobacco Use Types Packs/Day Years [...] Recorded Patient Health Questionnaire-2 Score 0 01/20/2025 [facility] of Occupat ionma Health - Occupational Stress Questionnaire Answer Date [...] any time in the past 12 m [facility], were you homeless or living in [...] DERM [address] [place] [address] Nelsy Harris, CUSTOMER PROGRAM SPECIALIST-VENEER MATCHER [address] [place] [address] documented as of this encounter Visit Diagnoses Not on filedocumented in this encounter Additional Health Concerns Assessment Noted Time PHQ-9 Depression Total Score: 0 01/21/20 25 1:00 PM EDT documented as of this encounter Care Teams Hydraulic Spinner Relationship Specialty Start Date End Date Eliceo Gómez DO [address] [place] [address] PCP - General Family Medicine 04/04/23 Eliceo Gómez DO [address] [place] [address] PCP - [facility] 05/06/2310/05 Juan Damico DO [address] [place] [address] Referring Physician Obstetrics and Gynecology 05/20/24 documented as of this encounter
--- OUTSIDE RECORDS SUMMARY | 2025-04-30 07:42 | XMS_ITS | Encounter Summary ---
Author Organization [facility] Address [address] [facility] [place] [address] Care Team Providers Care Assistant Sales Manager Name Role Phone Eliceo Gómez DO Primary Care Provider [phone] Eliceo Gómez DO Unavailable [phone] Juan Damico DO Unavailable [phone] Encounter Details Date Type Department Care Team (Late st Contact Info) Description 08/05/2024 Abstract [facility] [address] [facility] 230 [place] [address] Eliceo Gómez DO [address] [facility] 230 [place] [address] Social History Tobacco Use Types Packs/Day Years [...] you attend chur or episcopalian services? Never 05/01/2024 Do you belong to [...] Recorded Patient Health Questionnaire-2 Score 0 07/11/2024 [facility] of Occupat ionmn Health - Occupational Stress [...] any time in the past 12 m [facility], were you homeless or living [...] DERM [address] [place] [address] Nelsy Harris, BACK HAND-HUMAN RESOURCES SPECIALIST [address] [place] [address] documented as of this encounter Visit Diagnoses Not on filedocumented in this encounter Care Teams Assistant Sales Manager Relationship Specialty Start Date End Date Eliceo Gómez, DO [address] [place] [address] PCP - General Family Medicine 04/04/23 Eliceo Gómez, DO [address] [place] [address] PCP - [facility] 05/06/2310/05 Juan Damico, DO [address] [place] [address] Referring Physician Obstetrics and Gynecology 05/20/24 documented as of this encounter
--- OUTSIDE RECORDS SUMMARY | 2025-04-30 07:42 | XMS_ITS | Encounter Summary ---
Author Organization [facility] Address [address] [facility] [place] [address] Care Team Providers Care New Car Sales Manager Name Role Phone Eliceo Gómez DO Primary Care Provider [phone] Eliceo Gómez DO Unavailable [phone] Juan Damico DO Unavailable [phone] Encounter Details Date Type Department Care Team (Late st Contact Info) Description 03/17/2025 Abstract [facility] [address] [facility] 230 [place] [address] Eliceo Gómez DO [address] [facility] 230 [place] [address] Social History Tobacco Use Types Packs/Day Years [...] How often do you attend chur or jew services? Never 05/01/2024 Do you belong to [...] Recorded Patient Health Questionnaire-2 Score 0 01/20/2025 [facility] of Occupat ionin Health - Occupational Stress [...] time in the past 12 m [facility], were you homeless or living in a [...] DERM [address] [place] [address] Nelsy Harris, TOP LIFTER-SPINNING BATH PERSON [address] [place] [address] documented as of this encounter Visit Diagnoses Not on filedocumented in this encounter Additional Health Concerns Assessment Noted Time PHQ-9 Depression Total Score: 0 01/21/20 25 1:00 PM EDT documented as of this encounter Care Teams New Car Sales Manager Relationship Specialty Start Date End Date Eliceo Gómez DO [address] [place] [address] PCP - General Family Medicine 04/04/23 Eliceo Gómez DO [address] [place] [address] PCP - [facility] 05/06/2310/05 Juan Damico DO [address] [place] [address] Referring Physician Obstetrics and Gynecology 05/20/24 documented as of this encounter
--- OUTSIDE RECORDS SUMMARY | 2025-04-30 07:42 | XMS_ITS | Encounter Summary ---
Author Organization [facility] Address [address] [facility] [place] [address] Care Team Providers Care Brass Burnisher Name Role Phone Eliceo Gómez DO Primary Care Provider [phone] Eliceo Gómez DO Unavailable [phone] Juan Damico DO Unavailable [phone] Encounter Details Date Type Department Care Team (Late st Contact Info) Description 07/22/2024 Abstract [facility] [address] [facility] 230 [place] [address] Eliceo Gómez DO [address] [facility] 230 [place] [address] Social History Tobacco Use Types Packs/Day Years [...] How often do you attend chur or moravian services? Never 05/01/2024 Do you belong to [...] Patient Health Questionnaire-2 Score 0 07/11/2024 [facility]at ionmo Health - Occupational Stress Questionnaire Answer Date [...] any time in the past 12 m [facility], were you homeless or living in [...] DERM [address] [place] [address] Nelsy Harris, VP BIOLOGY-NET SOLUTIONS ARCHITECT [address] [place] [address] documented as of this encounter Visit Diagnoses Not on filedocumented in this encounter Care Teams Brass Burnisher Relationship Specialty Start Date End Date Eliceo Gómez, DO [address] [place] [address] PCP - General Family Medicine 04/04/23 Eliceo Gómez, DO [address] [place] [address] PCP - [facility] 05/06/2310/05 Juan Damico, DO [address] [place] [address] Referring Physician Obstetrics and Gynecology 05/20/24 documented as of this encounter
--- OUTSIDE RECORDS SUMMARY | 2025-04-30 07:42 | XMS_ITS | Encounter Summary ---
Author Organization [facility] Address [address] [place] [address] Care Team Providers Care Crop And Soil Scientist Name Role Phone HernandezEliceo randolph Asiya DO Primary Care Provider [phone] Eliceo Gómez DO Unavailable [phone] Beata Hernandez Unavailable Juan Damico DO Unavailable [phone] Encounter Details Date Type Department Care Team (Late st Contact Info) Description 10/25/2023 Orders Only [facility] [address] [place] [address] Jacob Felix MD [address] [place] [address] [place] [address] Social History Tobacco Use Types Packs/Day Years [...] you attend chur or scientology services? Never 04/14/2023 Do you belong to any clubs o r organizations such as episcopal groups, unions, fraternal or athletic groups, or [...] Health Questionnaire-2 Score 0 10/03/2023 [facility] of Occupat ional Health - Occupational [...] a long term (including now)? No 10/25/2023 Comments No Sex [...] DERM [address] [place] [address] Nelsy Harris APRN-KWESI [address] [place] [address] documented as of this encounter [...] on filedocumented in this encounter Care Teams Crop And Soil Scientist Relationship Specialty Start Date End Date Eliceo Gómez DO [address] [place] [address] PCP - General Family Medicine 04/04/23 Eliceo Gómez DO [address] [place] [address] PCP - [facility] 05/06/2310/05 Beata Hernandez PA [address] [place] [address] Dietitian Nutrition 08/08/23 05/16/24 Juan Damico DO [address] [place] [address] Referring Physician Obstetrics and Gynecology 05/20/24 documented as of this encounter
--- OUTSIDE RECORDS SUMMARY | 2025-04-30 07:42 | XMS_ITS | Encounter Summary ---
Author Organization [facility] Address [address] [facility] [place] [address] Care Team Providers Care Baccarat Dealer Name Role Phone Eliceo Gómez DO Primary Care Provider [phone] Eliceo Gómez DO Unavailable [phone] Juan Damico DO Unavailable [phone] Encounter Details Date Type Department Care Team (Late st Contact Info) Description 08/28/2024 Abstract [facility] [address] [facility] 230 [place] [address] Eliceo Gómez DO [address] [facility] 230 [place] [address] Social History Tobacco Use Types Packs/Day Years [...] How often do you attend chur or lutheran services? Never 05/01/2024 Do you belong to [...] Recorded Patient Health Questionnaire-2 Score 0 07/11/2024 [facility] of Occupat ionky Health - Occupational [...] DERM [address] [place] [address] Nelsy Harris, CONE EXAMINER-HARDBOARD PRESS OPERATOR [address] [place] [address] documented as of this encounter Visit Diagnoses Not on filedocumented in this encounter Care Teams Baccarat Dealer Relationship Specialty Start Date End Date Eliceo Gómez, DO [address] [place] [address] PCP - General Family Medicine 04/04/23 Eliceo Gómez, DO [address] [place] [address] PCP - [facility] 05/06/2310/05 Juan Damico, DO [address] [place] [address] Referring Physician Obstetrics and Gynecology 05/20/24 documented as of this encounter
--- OUTSIDE RECORDS SUMMARY | 2025-04-30 07:42 | XMS_ITS | Encounter Summary ---
Author Organization [facility] Address [address] [facility] [place] [address] Care Team Providers Care Socket Puller Name Role Phone Eliceo Gómez DO Primary Care Provider [phone] Eliceo Gómez DO Unavailable [phone] Juan Damico DO Unavailable [phone] Encounter Details Date Type Department Care Team (Late st Contact Info) Description 10/07/2024 Abstract [facility] [address] [facility] 230 [place] [address] Eliceo Gómez DO [address] [facility] 230 [place] [address] Social History Tobacco Use Types Packs/Day Years [...] How often do you attend chur or sikhism services? Never 05/01/2024 Do you belong to [...] 0 07/11/2024 [facility] of Occupat ionmn Health - Occupational [...] any time in the past 12 m [facility], were you homeless or living in [...] DERM [address] [place] [address] Nelsy Harris, SOA ENGINEER-CREDIT ADMINISTRATOR [address] [place] [address] documented as of this encounter Visit Diagnoses Not on filedocumented in this encounter Care Teams Socket Puller Relationship Specialty Start Date End Date Eliceo Gómez, DO [address] [place] [address] PCP - General Family Medicine 04/04/23 Eliceo Gómez, DO [address] [place] [address] PCP - [facility] 05/06/2310/05 Juan Damico, DO [address] [place] [address] Referring Physician Obstetrics and Gynecology 05/20/24 documented as of this encounter
--- OUTSIDE RECORDS SUMMARY | 2025-04-30 07:42 | XMS_ITS | Encounter Summary ---
Author Organization [facility] Address [address] [place] [address] Care Team Providers Care Balance Staff Staker Name Role Phone Eliceo Gómez DO Primary Care Provider [phone] Eliceo Gómez DO Unavailable [phone] Beata Hernandez Unavailable Juan Damico DO Unavailable [phone] Encounter Details Date Type Department Care Team [...] Recorded Patient Health Questionnaire-2 Score 0 07/06/2023 [facility] - Occupational Stress Questionnaire Answer [...] [address] [place] [address] Nelsy Harris APRN-INDUSTRIAL GAS SERVICER [address] [place] [address] documented as of this encounter Procedures Procedure Name Priority Date/Time Associated Diagnosis Comments XR FOOT RT MIN 3V 08/03/2023 2:3 8 PM EDT documented in this encounter Results * XR FOOT RT MIN 3V (08/03/2023 2:38 PM EDT) Anatomical Region Laterality Modality Other 08/03/2023 2:38 PM EDT Narrative 08/03/2023 2:38 PM EDT [address] [address] XRay Report Signed Patient: MARY FUENTES MR#: [id number] : 1970 Acct:[id number] Age/Sex: 53 / F ADM Date: Loc: RAD Attending Dr: Sade Felix D.P.M. Ordering Physician: Sade Felix M.D. Date of Service: 08/03/23 Procedure(s): XR foot RT min 3V Accession Number(s): [id number] cc: Sade Felix M.D.; Isatu GÓMEZ [place] [address] Patient Name: MARY FUENTES MRN: [id number] date: 1970 Sex: F Assigned Patient Location: [facility] Current Patient Location: [facility] Accession/Order Number: [id number] Exam Date: 08/03/2023 13:35 Report Date: 08/03/2023 14:38 At the request of: SADE FELIX Procedure: XR foot RT min 3V STUDY: XR foot RT min 3V, [id number] HISTORY: RIGHT FOOT PAIN COMPARISON: Right foot [...] Signed By: 08/03/23 1441 DD/ 1438 TD/TT: Engineering Mgr: Procedure Note Radiology, Radiologist, - 08/03/2023 [place] [address] XRay Report Signed Patient: MARY FUENTES DMR#: [id number] : 1970Acct:[id number] Age/Sex: 53 / FADM Date: Loc: RAD Attending Dr: Sade Felix D.P.M. Ordering Physician: Sade Felix M.D. Date of Service: 08/03/23 Procedure(s): XR foot RT min 3V Accession Number(s): [id number] cc: Sade Felix M.D.; Isatu GÓMEZ [place] [address] Patient Name: MARY FUENTES MRN: [id number] date: 1970 Sex: F Assigned Patient Location: [facility] Current Patient Location: [facility] Accession/Order Number: [id number] Exam Date: 08/03/2023 13:35 Report Date: 08/03/2023 14:38 At the request of: SADE FELIX Procedure: XR foot RT min 3V STUDY: XR foot RT min 3V, [id number] HISTORY: RIGHT FOOT PAIN COMPARISON: Right foot [...] Yang Signed By:08/03/23 1441 DD/ 1438 TD/TT: Engineering Mgr: us Generic External Data Provider [facility] Final Result documented in this encounter Visit Diagnoses Not on filedocumented in this encounter Care Teams Balance Staff Staker Relationship Specialty Start Date End Date Eliceo Gómez DO [address] [place] [address] PCP - General Family Medicine 04/04/23 Eliceo Gómez DO [address] [place] [address] PCP - [facility] 05/06/2310/05 Beata Hernandez PA [address] [place] [address] Dietitian Nutrition 08/08/23 05/16/24 Juan Damico DO [address] [place] [address] Referring Physician Obstetrics and Gynecology 05/20/24 documented as of this encounter
--- OUTSIDE RECORDS SUMMARY | 2025-04-30 07:42 | XMS_ITS | Encounter Summary ---
Author Organization [employer] Address [id number] [address] [place] [address] Care Team Providers Care Cafeteria Associate Name Role Phone Dalia Morales Eliceo Braden Primary Care Provider + Reason for Visit * Reason Comments Med Refill Encounter Details Date Type Department Care Team (Late st Contact Info) Description 04/21/2025 Refill [facility] [address] [place] [address] Pauline Christensen MD [address] [place] [address], [facility] [address] [place] [address] Other migraine without status migrainosus, not intractable Social History Tobacco Use Types Packs/Day Years [...] Description 06/17/2025 8:15 AM EDT Office Visit [facility] Department of [facility] [address] [facility] [address] [place] [address] Soraida Gama PA [address] [facility] [address] [place] [address] documented as of this encounter Visit Diagnoses Diagnosis Other migraine without status migrainosus, not intractable documented in this encounter Additional Health Concerns Assessment Noted Time PHQ-9 Depression Total Score: 0 10/23/20 23 1:26 PM EST documented as of this encounter Care Teams Cafeteria Associate Relationship Specialty Start Date End Date Eliceo Gómez Jr., [address] [place] [address], [address] [address] PCP - General Family Medicine 12/11/19 Jenna Butler [address] [place] [address] Consulting Physician Behavioral Health 12/20/23 documented as of this encounter
--- OUTSIDE RECORDS SUMMARY | 2025-04-30 07:42 | XMS_ITS | Encounter Summary ---
Author Organization [employer] Address [id number] [address] [place] [address] Care Team Providers Care Translation Director Name Role Phone Dalia Morales DO, George R Primary Care Provider + Reason for Visit * Reason Onset Date Comments Med Refill 11/04/2020 Encounter Details Date Type Department Care Team (Late st Contact Info) Description 11/04/2020 Refill [facility] [address] [place] [address] Demi Machado Chronic mixed headache syndrome (Primary [...] it was discontinued. She said that Dr. Chirstensen had upped dosage to regular Indomethacin 25 mg capsule and Indomethacin 75 mg CR capsule x 2 daily. Please send med refill script to [facility] in [place] on [address] [facility] per patient's chart/request. Please call back and advise, callback#: [phone]. * Telephone Encounter - Jessi Franklin RN - 11/04/2020 11:41 AM EST Looks like script was pended/routed on 10/21/2020 per refill encounter dated 10/19/2020- not sure what happened to it after that. Indomethacin 75 mg BID script pended and re-routed to provider for approval and signature. Jessi Franklin RN 11/04/20 3820 documented in this encounter Plan of Treatment Upcoming Encounters Date Type Department Care Team (Late st Contact Info) Description 06/17/2025 8:15 AM EDT Office Visit [facility] Department of [address] [phone] Soraida Gama PA [address] [facility] 103 [place] [address] documented as of this encounter Visit Diagnoses Diagnosis Chronic mixed headache syndrome- Primary Other headache syndromes documented in this encounter Care Teams Translation Director Relationship Specialty Start Date End Date Eliceo Gómez Jr., DO [address] [facility], [address] [place] [address] PCP - General Family Medicine 12/11/19 Jenna Butler [address] Consulting Physician Behavioral Health 12/20/23 documented as of this encounter
--- OUTSIDE RECORDS SUMMARY | 2025-04-30 07:42 | XMS_ITS | Encounter Summary ---
Author Organization [facility] Address [address] [place] [address] Care Team Providers Care Ux Architect Name Role Phone Eliceo Gómez DO Primary Care Provider [phone] Eliceo Gómez DO Unavailable [phone] Juan Damico DO Unavailable [phone] Encounter Details Date Type Department Care Team [...] Recorded Patient Health Questionnaire-2 Score 0 07/11/2024 [facility] of Occupat ional Health - [...] DERM [address] [place] [address] Nelsy Harris APRN-GUSSET MAKER [address] [place] [address] documented as of this encounter Procedures Procedure Name Priority Date/Time Associated Diagnosis Comments XR FOOT RT MIN 3V 08/01/2024 5:0 1 AM EDT documented in this encounter Results * XR FOOT RT MIN 3V (08/01/2024 5:01 AM EDT) Anatomical Region Laterality Modality Other 08/01/2024 5:01 AM EDT Narrative 08/01/2024 5:04 [place] [address] XRay Report Signed Patient: ELSIE FUENTES MR#: [id number] : 1970 Acct:[id number] Age/Sex: 54 / F ADM Date: 07/30/24 Loc: EC Attending Dr: Sade Felix D.P.M. Ordering Physician: Sade Felix D.P.M. Date of Service: 07/30/24 Procedure(s): XR foot RT min 3V Accession Number(s): [id number] cc: Sade Felix D.P.M.; Isatu GÓMEZ [place] [address] Patient Name: ELSIE FUENTES MRN: [id number] date: 1970 Sex: F Assigned Patient Location: Current Patient Location: Accession/Order Number: [id number] Exam Date: 07/30/2024 09:46 Report Date: 08/01/2024 [...] M.D. Signed By: 08/01/24503 DD/ 0 TD/TT: 4Th Grade Math Teacher: Procedure Note Radiology, Radiologist, MD - 08/01/2024 [place] [address] XRay Report Signed Patient: ELSIE FUENTES DMR#: [id number] : 1970Acct:[id number] Age/Sex: 54 / FADM Date: 07/30/24 Loc: EC Attending Dr: Sade Felix D.P.M. Ordering Physician: Sade Felix D.P.M. Date of Service: 07/30/24 Procedure(s): XR foot RT min 3V Accession Number(s): [id number] cc: Sade Felix D.P.M.; Isatu GÓMEZ [place] [address] Patient Name: ELSIE FUENTES MRN: [id number] date: 1970 Sex: F Assigned Patient Location: Current Patient Location: Accession/Order Number: [id number] Exam Date: 07/30/2024 09:46 Report Date: 08/01/2024 [...] M.D. Signed By:08/01/24 0504 DD/ 050 TD/TT: 4Th Grade Math Teacher: us Generic External Data Provider [facility] Final Result documented in this encounter Visit Diagnoses Not on filedocumented in this encounter Care Teams Ux Architect Relationship Specialty Start Date End Date Eliceo Gómez DO [address] [place] [address] PCP - General Family Medicine 04/04/23 Eliceo Gómez DO [address] [place] [address] PCP - [facility] 05/06/2310/05 Juan Damico DO [address] [place] [address] Referring Physician Obstetrics and Gynecology 05/20/24 documented as of this encounter
--- OUTSIDE RECORDS SUMMARY | 2025-04-30 07:42 | XMS_ITS | Encounter Summary ---
Author Organization [facility] Address [address] [place] [address] Care Team Providers Care Steam Plant Control Room Operator Name Role Phone Eliceo Gómez DO Primary Care Provider [phone] Eliceo Gómez DO Unavailable [phone] Beata Hernandez Unavailable Juan Damico DO Unavailable [phone] Encounter Details Date Type Department Care Team [...] any clubs o r organizations such as rastafarian groups, unions, fraternal or athletic groups, or [...] Recorded Patient Health Questionnaire-2 Score 0 10/03/2023 [facility] - Occupational Stress Questionnaire Answer [...] DERM [address] [place] [address] Nelsy Harris APRN-HOOP EXPANDER [address] [place] [address] documented as of this encounter Procedures Procedure Name Priority Date/Time Associated Diagnosis Comments XR FOOT RT MIN 3V 11/13/2023 12: 52 PM EST documented in this encounter Results * XR FOOT RT MIN 3V (11/13/2023 12:52 PM EST) Anatomical Region Laterality Modality Other 11/13/2023 12:5 2 PM EST Narrative 11/13/2023 12:54 PM EST The [address] [address] XRay Report Signed Patient: MARY FUENTES MR#: [id number] : 1970 Acct:[id number] Age/Sex: 53 / F ADM Date: 11/13/23 Loc: SURGOUT Attending Dr: Jacob Felix D.P.M. Ordering Physician: Ritchie Gonzalez D.P.M. Date of Service: 11/13/23 Procedure(s): XR foot RT min 3V Accession Number(s): [id number] cc: Isatu GÓMEZ ; Ritchie Gonzalez D.P.M. The [place] [address] Patient Name: MARY FUENTES MRN: [id number] date: 1970 Sex: F Assigned Patient Location: [facility] Current Patient Location: Accession/Order Number: [id number] Exam Date: 11/13/2023 11:30 Report Date: 11/13/2023 [...] Signed By: 11/13/23 1254 DD/ 1252 TD/TT: Software Development Leader: Procedure Note Radiology, Radiologist, MD - 01/10/2024 [place] [address] XRay Report Signed Patient: MARY FUENTES DMR#: [id number] : 1970Acct:[id number] Age/Sex: 53 / FADM Date: 11/13/23 Loc: SURGOUT Attending Dr: Jacob Felix D.P.M. Ordering Physician: Ritchie Gonzalez D.P.M. Date of Service: 11/13/23 Procedure(s): XR foot RT min 3V Accession Number(s): [id number] cc: Isatu GÓMEZ ; Ritchie Gonzalez D.P.M. [place] [address] Patient Name: MARY FUENTES MRN: [id number] date: 1970 Sex: F Assigned Patient Location: [facility] Current Patient Location: Accession/Order Number: [id number] Exam Date: 11/13/2023 11:30 Report Date: 11/13/2023 [...] M.D. Signed By:11/13/23 1254 DD/ 1252 TD/TT: Software Development Leader: Generic External Data Provider [facility] Final Result documented in this encounter Visit Diagnoses Not on filedocumented in this encounter Care Teams Steam Plant Control Room Operator Relationship Specialty Start Date End Date Eliceo Gómez DO [address] [facility] [address] [place] [id number] PCP - General Family Medicine 04/04/23 Eliceo Gómez DO [address] [place] [address] PCP - [facility] 05/06/2310/05 Beata Hernandez PA [address] [place] [address] Dietitian Nutrition 08/08/23 05/16/24 Juan Damico DO [address] [place] [address] Referring Physician Obstetrics and Gynecology 05/20/24 documented as of this encounter
--- OUTSIDE RECORDS SUMMARY | 2025-04-30 07:42 | XMS_ITS | Encounter Summary ---
Author Organization [facility] Address [address] [place] [address] Care Team Providers Care Polysomnographic Technologist Name Role Phone Eliceo Gómez DO Primary Care Provider [phone] Eliceo Gómez DO Unavailable [phone] Beata Hernandez Unavailable Juan Damico DO Unavailable [phone] Encounter Details Date Type Department Care Team [...] often do you attend chur ch or confucianist services? Never 04/14/2023 Do you belong to [...] Recorded Patient Health Questionnaire-2 Score 0 10/03/2023 [facility] - Occupational Stress Questionnaire Answer Date [...] DERM [address] [place] [address] Nelsy Harris, INTEGRATION TECHNICIAN-DAY CARE ASSISTANT [address] [place] [address] documented as of this encounter Procedures Procedure Name Priority Date/Time Associated Diagnosis Comments XR FOOT RT MIN 3V 10/25/2023 1:2 9 PM EST documented in this encounter Results * XR FOOT RT MIN 3V (10/25/2023 1:29 PM EST) Anatomical Region Laterality Modality Other 10/25/2023 1:29 PM EST Narrative 10/25/2023 1:31 PM EST The [address] [address] XRay Report Signed Patient: MARY FUENTES MR#: [id number] : 1970 Acct:[id number] Age/Sex: 53 / F ADM Date: 10/25/23 Loc: RAD Attending Dr: Sade Felix D.P.M. Ordering Physician: Sade Felix D.P.M. Date of Service: 10/25/23 Procedure(s): XR foot RT min 3V Accession Number(s): [id number] cc: Sade Felix D.P.M.; Isatu GÓMEZ The [address] [address] Patient Name: MARY FUENTES MRN: [id number] date: 1970 Sex: F Assigned Patient Location: [facility] Current Patient Location: [facility] Accession/Order Number: [id number] Exam Date: 10/25/2023 09:09 Report Date: 10/25/2023 13:29 At the request of: SADE FELIX Procedure: XR foot RT min 3V PROCEDURE: XR foot RT min 3V DATE: 10/25/2023 8:09 AM CANDLE WRAPPER COMPARISONS: 09/13/2023 CLINICAL INDICATION: RIGHT FOOT F/U [...] By: Deisy Grajeda M.D. Signed By: 10/25/23 2408 DD/ 1329 TD/TT: Blanket Binder: Procedure Note Radiology, Radiologist, - 01/10/[address] [address] XRay Report Signed Patient: MARY FUENTES DMR#: [id number] : 1970Acct:[id number] Age/Sex: 53 / FADM Date: 10/25/23 Loc: RAD Attending Dr: Sade Felix D.P.M. Ordering Physician: Sade Felix D.P.M. Date of Service: 10/25/23 Procedure(s): XR foot RT min 3V Accession Number(s): [id number] cc: Sade Felix D.P.M.; Isatu GÓMEZ The [place] [id number] Patient Name: MARY FUENTES MRN: [id number] date: 1970 Sex: F Assigned Patient Location: [facility] Current Patient Location: [facility] Accession/Order Number: [id number] Exam Date: 10/25/2023 09:09 Report Date: 10/25/2023 13:29 At the request of: SADE FELIX Procedure: XR foot RT min 3V PROCEDURE: XR foot RT min 3V DATE: 10/25/2023 8:09 AM CANDLE WRAPPER COMPARISONS: 09/13/2023 CLINICAL INDICATION: RIGHT FOOT F/U [...] Dictated By: Deisy Grajeda M.D. Signed By:10/25/23 1335 DD/ 1329 TD/TT: Blanket Binder: us Generic External Data Provider [facility] Final Result documented in this encounter Visit Diagnoses Not on filedocumented in this encounter Care Teams Polysomnographic Technologist Relationship Specialty Start Date End Date Eliceo Gómez DO [address] [place] [address] PCP - General Family Medicine 04/04/23 Eliceo Gómez DO [address] [place] [address] PCP - [facility] 05/06/2310/05 Beata Hernandez PA [address] [place] [address] Dietitian Nutrition 08/08/23 05/16/24 Juan Damico DO [address] [place] [address] Referring Physician Obstetrics and Gynecology 05/20/24 documented as of this encounter
--- OUTSIDE RECORDS SUMMARY | 2025-04-30 07:42 | XMS_ITS | Encounter Summary ---
Author Organization [facility] Address [address] [place] [address] Care Team Providers Care Addictions Recovery Specialist Name Role Phone Eliceo Gómez DO Primary Care Provider [phone] Eliceo Gómez DO Unavailable [phone] Juan Damico DO Unavailable [phone] Encounter Details Date Type Department Care Team [...] 0 07/11/2024 [facility] Occupat ional Health [...] any time in the past [address] [facility], were you homeless or living [...] DERM [address] [place] [address] Nelsy Harris APRN-PARENT AIDE [address] [place] [address] documented as of this encounter Procedures Procedure Name Priority Date/Time Associated Diagnosis Comments XR THORACIC SPINE 2 VIEWS 07/13/2024 8:07 AM EDT documented in this encounter Results * XR thoracic spine 2 views (07/13/2024 8:07 AM EDT) Anatomical Region Laterality Modality Spine, T-spine Radiographic Ira ging 07/13/2024 8:07 AM EDT Narrative 07/13/2024 8:09 [place] [address] XRay Report Signed Patient: MARY FUENTES MR#: [id number] : 1970 Acct:[id number] Age/Sex: 54 / F ADM Date: 07/12/24 Loc: [facility] Attending Dr: Jess Black NP Ordering Physician: Jess Black NP Date of Service: 07/12/24 Procedure(s): XR thoracic spine 2V Accession Number(s): [id number] cc: Jess Black NP; Isatu GÓMEZ [place] [address] Patient Name: MARY FUENTES MRN: [id number] date: 1970 Sex: F Assigned Patient Location: [facility] Current Patient Location: Accession/Order Number: [id number] Exam Date: 07/12/2024 10:50 Report Date: 07/13/2024 08:07 At the request of: JSES BLACK Procedure: XR thoracic spine 2V EXAMINATION: [...] M.D. Signed By: 07/13/24808 DD/ 6 TD/TT: Residence Life Coordinator: Procedure Note Radiology, Radiologist, - 07/13/2024 [place] [address] XRay Report Signed Patient: MARY FUENTES DMR#: [id number] : 1970Acct:[id number] Age/Sex: 54 / FADM Date: 07/12/24 Loc: RAD Attending Dr: Jess Black NP Ordering Physician: Jess Black NP Date of Service: 07/12/24 Procedure(s): XR thoracic spine 2V Accession Number(s): [id number] cc: Jess Black NP; Isatu GÓMEZ The [place] [address] Patient Name: MARY FUENTES MRN: [id number] date: 1970 Sex: F Assigned Patient Location: [facility] Current Patient Location: Accession/Order Number: [id number] Exam Date: 07/12/2024 10:50 Report Date: 07/13/2024 [...] Oliveros M.D. Signed By:07/13/24808 DD/ 0807 TD/TT: Residence Life Coordinator: us Generic External Data Provider IMG XR PROCEDURES Final Result documented in this encounter Visit Diagnoses Not on filedocumented in this encounter Care Teams Addictions Recovery Specialist Relationship Specialty Start Date End Date Eliceo Gómez DO [address] [place] [address] PCP - General Family Medicine 04/04/23 Eliceo Gómez DO [address] [place] [address] PCP - [facility] 05/06/2310/05 Juan Damico DO [address] [place] [address] Referring Physician Obstetrics and Gynecology 05/20/24 documented as of this encounter
--- OUTSIDE RECORDS SUMMARY | 2025-04-30 07:42 | XMS_ITS | Encounter Summary ---
Author Organization [employer] Address [id number] [address] [place] [address] Care Team Providers Care Computerized Machine Fabric Cutter Name Role Phone Dalia Morales DO, George R Primary Care Provider + Encounter Details Date Type Department Care Team (Late Contact Info) Description 02/12/2021 Orders Only [facility] [address] [place] [phone] External, Scanning Provider Social History Tobacco Use [...] Department Care Team (Late Contact Info) Description 06/17/2025 8:15 AM EDT Office Visit [facility], A Department of [facility] [address] [facility] [address] [place] [address] Soraida Gama PA [address] [facility] [address] [place] [address] documented as of this encounter Procedures Procedure Name Priority Date/Time Associated Diagnosis Comments MULTIPLE LABS Routine 01/21/2021 documented in this encounter Results * Multiple labs (01/21/2021) us Scanning Provider External [facility] Final Result MANUALLY TRANSCRIBED RESULTS documented in this encounter Visit Diagnoses Not on filedocumented in this encounter Care Teams Computerized Machine Fabric Cutter Relationship Specialty Start Date End Date Eliceo Gómez Jr., [address] [place] [address], [address], [place] [address] PCP - General Family Medicine 12/11/19 Jenna Butler [address] Consulting Physician Behavioral Health 12/20/23 documented as of this encounter
--- OUTSIDE RECORDS SUMMARY | 2025-04-30 07:42 | XMS_ITS | Encounter Summary ---
Author Organization [facility] Address [address] [facility] [place] [address] Care Team Providers Care Scholarship Counselor Name Role Phone Eliceo Gómez DO Primary Care Provider [phone] Eliceo Gómez DO Unavailable [phone] Beata Hernandez Unavailable Juan Damico DO Unavailable [phone] Encounter Details Date Type Department Care Team (Late st Contact Info) Description 09/13/2023 Orders Only [facility] [address] [facility] [address] [place] [address] A, Unknown Practice [address] [place] [address] Social History Tobacco Use Types Packs/Day Years [...] Questionnaire-2 Score 0 07/06/2023 [facility] - Occupational Stress Questionnaire Answer [...] slept in a prison (including now)? No 04/14/2023 Comments No Sex [...] DERM [address] [place] [address] Nelsy Harris APRN-PROFESSIONAL ATHLETES COACH [address] [facility] [address] [place] [address] documented as of this encounter [...] on filedocumented in this encounter Care Teams Scholarship Counselor Relationship Specialty Start Date End Date Eliceo Gómez DO [address] [place] [address] PCP - General Family Medicine 04/04/23 Eliceo Gómez DO [address] [place] [address] PCP - [facility] 05/06/2310/05 Beata Hernandez PA [address] [place] [address] Dietitian Nutrition 08/08/23 05/16/24 Juan Damico DO [address] [place] [address] Referring Physician Obstetrics and Gynecology 05/20/24 documented as of this encounter
--- OUTSIDE RECORDS SUMMARY | 2025-04-30 07:42 | XMS_ITS | Encounter Summary ---
Author Organization [facility] Address [address] [facility] [place] [address] Care Team Providers Care Subgrade Roller Operator Name Role Phone Eliceo Gómez DO Primary Care Provider [phone] Eliceo Gómez DO Unavailable [phone] Beata Hernandez Unavailable Juan Damico DO Unavailable [phone] Encounter Details Date Type Department Care Team (Late st Contact Info) Description 07/12/2023 Orders Only [facility] [address] [facility] [address] [place] [address] A, Unknown Practice [address] [place] [address] Social History Tobacco Use Types Packs/Day Years [...] any clubs o r organizations such as yazidism groups, unions, fraternal or athletic groups, or [...] Patient Health Questionnaire-2 Score 0 07/06/2023 [facility] - Occupational Stress Questionnaire Answer [...] DERM [address] [place] [address] Nelsy Harris APRN-PRACTICE ADVISOR [address] [place] [address] documented as of this encounter [...] on filedocumented in this encounter Care Teams Subgrade Roller Operator Relationship Specialty Start Date End Date Eliceo Gómez DO [address] [place] [address] PCP - General Family Medicine 04/04/23 Eliceo Gómez, DO [address] [place] [address] PCP - [facility] 05/06/2310/05 Beata Hernandez PA [address] [place] [address] Dietitian Nutrition 08/08/23 05/16/24 Juan Damico, [address] [place] [address] Referring Physician Obstetrics and Gynecology 05/20/24 documented as of this encounter
--- OUTSIDE RECORDS SUMMARY | 2025-04-30 07:42 | XMS_ITS | Encounter Summary ---
Author Organization [facility] [employer] Address [id number] [address] [place] [address] Care Team Providers Care Keymodule Assembly Machine Tender Name Role Phone Dalia Morales DO, George R Primary Care Provider + Reason for Visit * Reason Onset Date Comments Med Refill 10/29/2020 Encounter Details Date Type Department Care Team (Late st Contact Info) Description 10/29/2020 Telephone [facility] Physicians [facility] [address] [facility] [address] [place] [address] Guera Benson CNA Med Refill Social History [...] Notes * Telephone Encounter - Guera Kelley, PICK UP WORKER - 10/29/2020 9:58 AM EST Amitiza samples and Trulance samples given to patient per Sharon Benson CNA 10/29/20 0959 documented in this encounter Plan of Treatment Upcoming Encounters Date Type Department Care Team (Late st Contact Info) Description 06/17/2025 8:15 AM EDT Office Visit [facility], [facility] Department of [facility] [address] [phone] Soraida Gama PA [address] [facility] [address] [place] [address] documented as of this encounter Visit Diagnoses Not on filedocumented in this encounter Care Teams Keymodule Assembly Machine Tender Relationship Specialty Start Date End Date Eliceo Gómez Jr., [address] [place] [address], [address], [place] [address] PCP - General Family Medicine 12/11/19 Jenna Butler [address] Consulting Physician Behavioral Health 12/20/23 documented as of this encounter
--- OUTSIDE RECORDS SUMMARY | 2025-04-30 07:42 | XMS_ITS | Encounter Summary ---
Author Organization [facility] Address [address] [facility] [place] [address] Care Team Providers Care Piano Player Name Role Phone Eliceo Gómez DO Primary Care Provider [phone] Eliceo Gómez DO Unavailable [phone] Juan Damico DO Unavailable [phone] Encounter Details Date Type Department Care Team (Late st Contact Info) Description 10/14/2024 Abstract [facility] [address] [facility] [address] [place] [address] Eliceo Gómez DO [address] [facility] [address] [place] [address] Social History Tobacco Use Types Packs/Day Years [...] any clubs o r organizations such as pentecostal groups, unions, fraternal or athletic groups, or [...] Patient Health Questionnaire-2 Score 0 07/11/2024 [facility] of Occupat ionme Health - Occupational Stress Questionnaire Answer Date [...] any time in the past 12 m [facility], were you homeless or [...] DERM [address] [place] [address] Nelsy Harris, INDEPENDENT TRADER-STEAMER OPERATOR [address] [place] [address] documented as of this encounter Visit Diagnoses Not on filedocumented in this encounter Care Teams Piano Player Relationship Specialty Start Date End Date Eliceo Gómez, DO [address] [place] [address] PCP - General Family Medicine 04/04/23 Eliceo Gómez, DO [address] [place] [address] PCP - [facility] 05/06/2310/05 Juan Damico, DO [address] [place] [address] Referring Physician Obstetrics and Gynecology 05/20/24 documented as of this encounter
--- OUTSIDE RECORDS SUMMARY | 2025-04-30 07:42 | XMS_ITS | Encounter Summary ---
Author Organization [facility] Address [address] [place] [address] Care Team Providers Care Laborer Car Barn Name Role Phone Eliceo Gómez DO Primary Care Provider [phone] Eliceo Gómez DO Unavailable [phone] Beata Hernandez Unavailable Juan Damico DO Unavailable [phone] Encounter Details Date Type Department Care Team (Late st Contact Info) Description 07/25/2023 Orders Only [facility] [address] [email or web address] [address] [place] [address] A, Unknown Practice [address] [place] [address] Social History Tobacco Use Types Packs/Day Years [...] you attend chur or baptism services? Never 04/14/2023 Do you belong to [...] Recorded Patient Health Questionnaire-2 Score 0 07/06/2023 [facility] - Occupational Stress Questionnaire [...] slept in a mcc (including now)? No 04/14/2023 Comments No Sex [...] DERM [address] [place] [address] Nelsy Harris APRN-STILL OPERATOR [address] [place] [address] documented as of this encounter Procedures Procedure Name Priority Date/Time Associated Diagnosis Comments ESOPHAGOSCOPY Routine 07/25/2023 3:25 PM EDT documented in this encounter Results * Esophagoscopy (07/25/2023 3:25 PM EDT) Anatomical Region Laterality Modality Endoscopy us Unknown Practice A ENDOSCOPY PROCEDURE ORDERABLE S Final Result documented in this encounter Visit Diagnoses Not on filedocumented in this encounter Care Teams Laborer Car Barn Relationship Specialty Start Date End Date Eliceo Gómez DO [address] [place] [address] PCP - General Family Medicine 04/04/23 Eliceo Gómez DO [address] [facility] [address] [place] [address] PCP - [facility] 05/06/2310/05 Beata Hernandez PA [address] [place] [address] Dietitian Nutrition 08/08/23 05/16/24 Juan Damico DO [address] [place] [address] Referring Physician Obstetrics and Gynecology 05/20/24 documented as of this encounter
--- OUTSIDE RECORDS SUMMARY | 2025-04-30 07:42 | XMS_ITS | Encounter Summary ---
Author Organization [facility] Address [address] [facility] [place] [address] Care Team Providers Care Bakery Machine Mechanic Supervisor Name Role Phone Eliceo Gómez DO Primary Care Provider [phone] Eliceo Gómez DO Unavailable [phone] Juan Damico DO Unavailable [phone] Encounter Details Date Type Department Care Team (Late st Contact Info) Description 03/06/2025 Abstract [facility] [address] [facility] [address] [place] [address] Eliceo Gómez DO [address] [facility] [address] [place] [address] Social History Tobacco Use Types Packs/Day Years [...] Recorded Patient Health Questionnaire-2 Score 0 01/20/2025 [facility] of Occupat ionor Health - Occupational Stress [...] DERM [address] [place] [address] Nelsy Harris, MARKETING COPYWRITER-CERTIFIED EMERGENCY VEHICLE TECHNICIAN [address] [place] [address] documented as of this encounter Visit Diagnoses Not on filedocumented in this encounter Additional Health Concerns Assessment Noted Time PHQ-9 Depression Total Score: 0 01/21/20 25 1:00 PM EDT documented as of this encounter Care Teams Bakery Machine Mechanic Supervisor Relationship Specialty Start Date End Date Eliceo Gómez DO [address] [place] [address] PCP - General Family Medicine 04/04/23 Eliceo Gómez DO [address] [place] [address] PCP - [facility] 05/06/2310/05 Juan Damico DO [address] [place] [address] Referring Physician Obstetrics and Gynecology 05/20/24 documented as of this encounter
--- OUTSIDE RECORDS SUMMARY | 2025-04-30 07:42 | XMS_ITS | Encounter Summary ---
Author Organization [facility] Address [address] [place] [address] Care Team Providers Care Dye Machine Tender Name Role Phone Eliceo Gómez DO Primary Care Provider [phone] Eliceo Gómez DO Unavailable [phone] Beata Hernandez Unavailable Juan Damico DO Unavailable Encounter Details Date Type Department Care Team (Late st Contact Info) Description 07/11/2023 Abstract [facility] [address] [facility] [address] [place] [address] Eliceo Gómez, DO [address] [place] [address] Social History Tobacco Use Types Packs/Day Years [...] you attend chur or restorationist services? Never 04/14/2023 Do you belong to [...] Recorded Patient Health Questionnaire-2 Score 0 07/06/2023 [facility] - Occupational Stress Questionnaire [...] in a senior living (including now)? No 04/14/2023 Comments No Sex [...] DERM [address] [place] [address] Nelsy Harris APRN-MATERIAL DISPATCHER [address] [place] [address] documented as of this encounter Visit Diagnoses Not on filedocumented in this encounter Care Teams Dye Machine Tender Relationship Specialty Start Date End Date Eliceo Gómez DO [address] [place] [address] PCP - General Family Medicine 04/04/23 Eliceo Gómez DO [address] [facility] [address] [place] [address] PCP - [facility] 05/06/2310/05 Beata Hernandez PA [address] [facility] [place] [address] Dietitian Nutrition 08/08/23 05/16/24 Juan Damico DO [address] [facility] [place] [address] Referring Physician Obstetrics and Gynecology 05/20/24 documented as of this encounter
--- OUTSIDE RECORDS SUMMARY | 2025-04-30 07:42 | XMS_ITS | Encounter Summary ---
Author Organization [facility] Address [address] [facility] [place] [address] Care Team Providers Care Rfid Systems Architect Name Role Phone Eliceo Gómez DO Primary Care Provider [phone] Eliceo Gómez DO Unavailable [phone] Juan Damico DO Unavailable [phone] Encounter Details Date Type Department Care Team (Late st Contact Info) Description 12/26/2024 Abstract [facility] [address] [facility] 230 [place] [address] Eliceo Gómez DO [address] [facility] [address] [place] [address] Social History Tobacco Use Types Packs/Day Years [...] How often do you attend chur or muslim services? Never 05/01/2024 Do you belong to [...] Patient Health Questionnaire-2 Score 0 07/11/2024 [facility] of Occupat ionnc Health - Occupational Stress [...] Office Visit [facility] DERM [address] [place] [address] Nelsy Harris, MACHINE STONECUTTER-YARN SIZER [address] [place] [address] documented as of this encounter Visit Diagnoses Not on filedocumented in this encounter Care Teams Rfid Systems Architect Relationship Specialty Start Date End Date Eliceo Gómez, DO [address] [place] [address] PCP - General Family Medicine 04/04/23 Eliceo Gómez, DO [address] [place] [address] PCP - [facility] 05/06/2310/05 Juan Damico, DO [address] [place] [address] Referring Physician Obstetrics and Gynecology 05/20/24 documented as of this encounter
--- OUTSIDE RECORDS SUMMARY | 2025-04-30 07:42 | XMS_ITS | Encounter Summary ---
Author Organization [facility] Address [address] [facility] [place] [address] Care Team Providers Care Road Roller Engineer Name Role Phone Eliceo Gómez DO Primary Care Provider [phone] Eliceo Gómez DO Unavailable [phone] Juan Damico DO Unavailable [phone] Encounter Details Date Type Department Care Team (Late st Contact Info) Description 10/24/2024 Abstract [facility] [address] [facility] 230 [place] [address] Eliceo Gómez DO [address] [facility] 230 [place] [address] Social History Tobacco Use Types Packs/Day Years [...] Recorded Patient Health Questionnaire-2 Score 0 07/11/2024 [facility] - Occupational Stress Questionnaire Answer Date [...] any time in the past 12 m [facility], were you homeless or living [...] DERM [address] [place] [address] Nelsy Harris, ENGINEERING GEOLOGIST-MERCHANDISE COORDINATOR [address] [place] [address] documented as of this encounter Visit Diagnoses Not on filedocumented in this encounter Care Teams Road Roller Engineer Relationship Specialty Start Date End Date Eliceo Gómez, DO [address] [place] [address] PCP - General Family Medicine 04/04/23 Eliceo Gómez, DO [address] [place] [address] PCP - [facility] 05/06/2310/05 Juan Damico, DO [address] [place] [address] Referring Physician Obstetrics and Gynecology 05/20/24 documented as of this encounter
--- OUTSIDE RECORDS SUMMARY | 2025-04-30 07:42 | XMS_ITS | Encounter Summary ---
Author Organization [employer] Address [id number] [address] [place] [address] Care Team Providers Care Rotary Envelope Machine Operator Name Role Phone Dalia Morales Eliceo Braden Primary Care Provider + Reason for Visit * Reason Comments Med Refill Encounter Details Date Type Department Care Team (Late st Contact Info) Description 10/19/2020 Refill [facility] [address] [place] [phone] Pauline Christensen MD [address] [place] [address], [facility] 101, [address], [address] [place] [address] Chronic mixed headache syndrome Social [...] 10/19/2020 4:15 PM EST RN sent a olookt message to patient (a modality with which she frequently communicates with this office) to inquire if the indomethacin is still helping. RN will update the refill request when response received. Jessi Franklin RN 10/20/20 0849 * Telephone Encounter - Jessi Franklin RN - 10/19/2020 4:15 PM EST Patient responded to olookt message as below: It helps some days. But not all the time. Is it time for a change maybe? Please advise, and thank you. Jessi Franklin RN 10/20/20 0988 * Telephone Encounter - Pauline Christensen MD [...] Linda in mid- September. RN asked in [employer] message if she is still taking Dayvigo. [...] EST Received call today 10/21/20 9:30 from [facility] who states that both the scriptsfor [...] is taking it. RN called [facility] at number below. RN spoke with pharmacist [...] unable. Thank you. Jessi Franklin RN 12/23/20 1650 documented in this encounter Plan of Treatment Upcoming Encounters Date Type Department Care Team (Late st Contact Info) Description 06/17/2025 8:15 AM EDT Office Visit [facility], A Department of [address] [address] Soraida Gama PA [address] [address] documented as of this encounter Visit Diagnoses Diagnosis Chronic mixed headache syndrome Other headache syndromes documented in this encounter Care Teams Rotary Envelope Machine Operator Relationship Specialty Start Date End Date Eliceo Gómez Jr., DO [address] [place] [address], [address], [place] [address] PCP - General Family Medicine 12/11/19 Jenna Butler [address] Consulting Physician Behavioral Health 12/20/23 documented as of this encounter
--- OUTSIDE RECORDS SUMMARY | 2025-04-30 07:42 | XMS_ITS | Encounter Summary ---
Author Organization [facility] Address [address] [place] [address] Care Team Providers Care Office Services Representative Name Role Phone Eliceo Gómez DO Primary Care Provider [phone] Eliceo Gómez DO Unavailable [phone] Juan Damico DO Unavailable [phone] Encounter Details Date Type Department Care Team [...] you attend chur or shinto services? Never 05/01/2024 Do you belong to [...] 0 07/11/2024 [facility] - Occupational [...] DERM [address] [place] [phone] Nelsy Harris APRN-STORE RECEIVER [address] [place] [address] documented as of this encounter Procedures Procedure Name Priority Date/Time Associated Diagnosis Comments XR FOOT RT MIN 3V 10/03/2024 9:2 5 AM EST documented in this encounter Results * XR FOOT RT MIN 3V (10/03/2024 9:25 AM EST) Anatomical Region Laterality Modality Other 10/03/2024 9:25 AM EST Narrative 10/03/2024 9:28 [place] [address] XRay Report Signed Patient: ELSIE FUENTES MR#: [id number] : 1970 Acct:[id number] Age/Sex: 54 / F ADM Date: 10/01/24 Loc: RAD Attending Dr: Sade Felix D.P.M. Ordering Physician: Sade Felix D.P.M. Date of Service: 10/01/24 Procedure(s): XR foot RT min 3V Accession Number(s): [id number] cc: Sade Felix D.P.M.; Isatu GÓMEZ [place] [address] Patient Name: ELSIE FUENTES MRN: [id number] date: 1970 Sex: F Assigned Patient Location: [facility] Current Patient Location: [facility] Accession/Order Number: [id number] Exam Date: 10/01/2024 07:45 Report Date: 10/03/2024 [...] M.D. Signed By: 10/03/24927 DD/ 4 TD/TT: Dedicated Truck Driver: Procedure Note Radiology, Radiologist, - 10/03/2024 [place] [address] XRay Report Signed Patient: ELSIE FUENTES DMR#: [id number] : 1970Acct:[id number] Age/Sex: 54 / FADM Date: 10/01/24 Loc: RAD Attending Dr: Sade Felix D.P.M. Ordering Physician: Sade Felix D.P.M. Date of Service: 10/01/24 Procedure(s): XR foot RT min 3V Accession Number(s): [id number] cc: Sade Felix D.P.M.; Isatu GÓMEZ [place] [address] Patient Name: ELSIE FUENTES MRN: [id number] date: 1970 Sex: F Assigned Patient Location: [facility] Current Patient Location: [facility] Accession/Order Number: [id number] Exam Date: 10/01/2024 07:45 Report Date: 10/03/2024 [...] Oliveros M.D. Signed By:10/03/24927 DD/ 4 TD/TT: Dedicated Truck Driver: us Generic External Data Provider [facility] Final Result documented in this encounter Visit Diagnoses Not on filedocumented in this encounter Care Teams Office Services Representative Relationship Specialty Start Date End Date Eliceo Gómez DO [address] [place] [address] PCP - General Family Medicine 04/04/23 Eliceo Gómez DO [address] [place] [address] PCP - [facility] 05/06/2310/05 Juan Damico DO [address] [place] [address] Referring Physician Obstetrics and Gynecology 05/20/24 documented as of this encounter
--- OUTSIDE RECORDS SUMMARY | 2025-04-30 07:42 | XMS_ITS | Encounter Summary ---
Author Organization [facility] Address [address] [place] [address] Care Team Providers Care Lens Examiner Name Role Phone Eliceo Gómez DO Primary Care Provider [phone] Eliceo Gómez DO Unavailable [phone] Beata Hernandez Unavailable Juan Damico DO Unavailable [phone] Encounter Details Date Type Department Care Team (Late st Contact Info) Description 08/03/2023 Orders Only [facility] [address] [facility] [address] [place] [address] A, Unknown Practice [address] [place] [address] Social History Tobacco Use Types Packs/Day Years [...] How often do you attend chur or hinduism services? Never 04/14/2023 Do you belong to [...] Recorded Patient Health Questionnaire-2 Score 0 07/06/2023 [facility] - Occupational Stress Questionnaire [...] DERM [address] [place] [address] Nelsy Harris APRN-EMAIL CAMPAIGN SPECIALIST [address] [place], [...] on filedocumented in this encounter Care Teams Lens Examiner Relationship Specialty Start Date End Date Eliceo Gómez DO [address] [place] [address] PCP - General Family Medicine 04/04/23 Eliceo Gómez DO [address] [place] [address] PCP - [facility] 05/06/2310/05 Beata Hernandez PA [address] [place] [address] Dietitian Nutrition 08/08/23 05/16/24 Juan Damico, DO [address] [place] [address] Referring Physician Obstetrics and Gynecology 05/20/24 documented as of this encounter
--- OUTSIDE RECORDS SUMMARY | 2025-04-30 07:42 | XMS_ITS | Encounter Summary ---
Author Organization [facility] Address [address] [place] [address] Care Team Providers Care Broadcaster Name Role Phone Eliceo Gómez DO Primary Care Provider [phone] Eliceo Gómez DO Unavailable [phone] Beata Hernandez Unavailable Juan Damico DO Unavailable [phone] Encounter Details Date Type Department Care Team [...] often do you attend chur ch or hinduism services? Never 04/14/2023 Do you [...] Recorded Patient Health Questionnaire-2 Score 0 07/06/2023 [facility] - Occupational Stress Questionnaire Answer Date Recorded [...] group home (including now)? No 04/14/2023 Comments No [...] [address] [place] [address] Nelsy Harris APRN-POWER SWITCHBOARD OPERATOR [address] [place] [address] documented as of this encounter Procedures Procedure Name Priority Date/Time Associated Diagnosis Comments CT ANKLE RT WO CON 08/05/2023 8: 01 PM EDT documented in this encounter Results * CT ANKLE RT WO CON (08/05/2023 8:01 PM EDT) Anatomical Region Laterality Modality Other 08/05/2023 8:01 PM EDT Narrative 08/05/2023 8:01 PM EDT The [address] [address] [address] Scan Report Signed Patient: MARY FUENTES MR#: [id number] : 1970 Acct:[id number] Age/Sex: 53 / F ADM Date: 08/04/23 Loc: CT Attending Dr: Niecy Serna Ordering Physician: Niecy Serna Date of Service: 08/04/23 Procedure(s): CT ankle RT wo con Accession Number(s): [id number] cc: Isatu GÓMEZ [place] [id number] Patient Name: MARY FUENTES MRN: [facility]:[id number] date: 1970 Sex: F Assigned Patient Location: CT Current Patient Location: Accession/Order Number: [id number] Exam Date: 08/04/2023 12:43 Report Date: 08/05/2023 20:01 At the request of: NIECY SERNA Procedure: CT ankle RT wo con EXAM: CT ankle RT wo con, [id number] 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 TECHNIQUE: Helical [...] Yang Signed By: 08/05/232003 DD/ 00 TD/TT: Laboratory Coordinator: Procedure Note Radiology, Radiologist, MD - 08/05/2023 [place] [address] CT Scan Report Signed Patient: MARY FUENTES DMR#: [id number] : 1970Acct:[id number] Age/Sex: 53 / FADM Date: 08/04/23 Loc: CT Attending Dr: Niecy Serna Ordering Physician: Niecy Serna Date of Service: 08/04/23 Procedure(s): CT ankle RT wo con Accession Number(s): [id number] cc: Isatu GÓMEZ [place] [address] Patient Name: MARY FUENTES MRN: [facility]:[id number] date: 1970 Sex: F Assigned Patient Location: CT Current Patient Location: Accession/Order Number: [id number] Exam Date: 08/04/2023 12:43 Report Date: 08/05/2023 20:01 At the request of: NIECY SERNA Procedure: CT ankle RT wo con EXAM: CT ankle RT wo con, [id number] 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 TECHNIQUE: Helical [...] Mell Yang Signed By:08/05/232003 DD/ 00 TD/TT: Laboratory Coordinator: us Generic External Data Provider [facility] Final Result documented in this encounter Visit Diagnoses Not on filedocumented in this encounter Care Teams Broadcaster Relationship Specialty Start Date End Date Eliceo Gómez DO [address] [place] [phone] PCP - General Family Medicine 04/04/23 Eliceo Gómez DO [address] [place] [address] PCP - [facility] 05/06/2310/05 Beata Hernandez PA [address] [place] [address] Dietitian Nutrition 08/08/23 05/16/24 Juan Damico DO [address] [place] [address] Referring Physician Obstetrics and Gynecology 05/20/24 documented as of this encounter
--- OUTSIDE RECORDS SUMMARY | 2025-04-30 07:42 | XMS_ITS | Encounter Summary ---
Author Organization [facility] Address [address] [facility] [place] [address] Care Team Providers Care Casework Supervisor Name Role Phone Eliceo Gómez DO Primary Care Provider Eliceo Gómez DO Unavailable [phone] Beata Hernandez Unavailable Juan Damico DO Unavailable [phone] Encounter Details Date Type Department Care Team (Late st Contact Info) Description 07/28/2023 Orders Only [facility] 230 [address] [facility] [address] [place] [address] A, Unknown Practice [address] [place] [address] Social History Tobacco Use Types Packs/Day Years [...] any clubs o r organizations such as anabaptism groups, unions, fraternal or athletic groups, or [...] Recorded Patient Health Questionnaire-2 Score 0 07/06/2023 [facility] - Occupational Stress Questionnaire Answer Date [...] slept in a fci (including now)? No 04/14/2023 Comments No Sex [...] DERM [address] [place] [address] Nelsy Harris APRN-TECHNICAL INTERNSHIP [address] [place] [address] documented as of this encounter [...] on filedocumented in this encounter Care Teams Casework Supervisor Relationship Specialty Start Date End Date Eliceo Gómez DO [address] [place] [address] PCP - General Family Medicine 04/04/23 Eliceo Gómez DO [address] [place] [address] PCP - [facility] 05/06/2310/05 Beata Hernandez PA [address] [place] [address] Dietitian Nutrition 08/08/23 05/16/24 Juan Damico, DO [address] [place] [address] Referring Physician Obstetrics and Gynecology 05/20/24 documented as of this encounter
--- OUTSIDE RECORDS SUMMARY | 2025-04-30 07:42 | XMS_ITS | Encounter Summary ---
Author Organization [facility] Address [address] [facility] [place] [address] Care Team Providers Care Car Dumper Operator Helper Name Role Phone Eliceo Gómez DO Primary Care Provider [phone] Eliceo Gómez DO Unavailable [phone] Beata Hernandez Unavailable Juan Damico DO Unavailable [phone] Encounter Details Date Type Department Care Team (Late st Contact Info) Description 11/13/2023 Orders Only [facility] [address] [place] [address] A, Unknown Practice [address] [place] [address] Social History Tobacco Use Types Packs/Day Years [...] How often do you attend chur or taoism services? Never 04/14/2023 Do you belong to [...] Recorded Patient Health Questionnaire-2 Score 0 10/03/2023 [facility] ional [facility] - [...] DERM [address] [place] [address] Nelsy Harris APRN-RESPITE COORDINATOR [address] [place] [address] documented as of this encounter Procedures Procedure [...] on filedocumented in this encounter Care Teams Car Dumper Operator Helper Relationship Specialty Start Date End Date Eliceo Gómez DO [address] [place] [address] PCP - General Family Medicine 04/04/23 Eliceo Gómez DO [address] [place] [address] PCP - [facility] 05/06/2310/05 Beata Hernandez PA [address] [place] [address] Dietitian Nutrition 08/08/23 05/16/24 Juan Damico DO [address] [place] [address] Referring Physician Obstetrics and Gynecology 05/20/24 documented as of this encounter
--- OUTSIDE RECORDS SUMMARY | 2025-04-30 07:42 | XMS_ITS | Encounter Summary ---
Author Organization [facility] Address [address] [place] [address] Care Team Providers Care Health Insurance Sales Agent Name Role Phone Eliceo Gómez DO Primary Care Provider [phone] Eliceo Gómez DO Unavailable [phone] Beata Hernandez Unavailable Juan Damico DO Unavailable [phone] Encounter Details Date Type Department Care Team [...] often do you attend chur ch or holiness services? Never 04/14/2023 Do you [...] Recorded Patient Health Questionnaire-2 Score 0 10/03/2023 [facility] - Occupational Stress Questionnaire Answer [...] DERM [address] [place] [address] Nelsy Harris APRN-BRUSH STAINER [address] [place] [address] documented as of this encounter Procedures Procedure Name Priority Date/Time Associated Diagnosis Comments ECG 12-LEAD 11/03/2023 8:38 AM EST documented in this encounter Results * ECG 12-LEAD (11/03/2023 8:38 AM EST) Anatomical Region Laterality Modality Other 11/03/2023 8:38 AM EST Narrative 11/06/2023 5:22 PM EST The [address] [address] Electrocardiograph Report Signed Patient: ELSIE FUENTES MR#: [id number] : 1970 Acct:[id number] Age/Sex: 53 / F ADM Date: Loc: SURGOUT Attending Dr: Sade Felix D.P.M. Ordering Physician: Sade Felix D.P.M. Date of Service: 11/03/23 Procedure(s): ECG 12 lead Accession Number(s): [id number] cc: [facility] Test Date: 2023-11-03 Pat Name: ELSIE FUENTES Department: Room: - Gender: Female Customer Insight Analyst: : 1970 Requested By: SADE FELIX Order Number: [id number] Reading MD: RIGO EUCEDA Measurements Intervals [place] Rate: 52 P: -2 MT: 171 QRS: 9 QRSD: 92 T: 8 QT: 437 QTc: 410 Interpretive Statements SINUS BRADYCARDIA WITH SINUS ARRHYTHMIA No previous ECG available for comparison Electronically Signed On 11-06-2023 17:22:20 EST by RIGO EUCEDA Dictated By: Rigo Euceda D.O. Signed By: 11/06/23 1722 DD/ 0838 TD/TT: Manager Sales: Procedure Note Radiology, Radiologist, MD - 11/06/2023 [place] [address] Electrocardiograph Report Signed Patient: ELSIE FUENTES DMR#: [id number] : 1970Acct:[id number] Age/Sex: 53 / FADM Date: Loc: SURGOUT Attending Dr: Sade Felix D.P.M. Ordering Physician: Sade Felix D.P.M. Date of Service: 11/03/23 Procedure(s): ECG 12 lead Accession Number(s): [id number] cc: The [facility] Test Date: 2023-11-03 Pat Name: ELSIE FUENTES Department: Room: - Gender: Female Customer Insight Analyst: : 1970 Requested By: SADE FELIX Order Number: [id number] Reading MD: RIGO EUCEDA Measurements Intervals [place] Rate: 52 P: -2 MT: 171 QRS: 9 QRSD: 92 T: 8 QT: 437 QTc: 410 Interpretive Statements SINUS BRADYCARDIA WITH SINUS ARRHYTHMIA No previous ECG available for comparison Electronically Signed On 11-06-2023 17:22:20 EST by RIGO EUCEDA Dictated By: Rigo Euceda D.O. Signed By:11/06/23 1722 DD/ 0838 TD/TT: Manager Sales: us Generic External Data Provider [facility] Final Result documented in this encounter Visit Diagnoses Not on filedocumented in this encounter Care Teams Health Insurance Sales Agent Relationship Specialty Start Date End Date Eliceo Gómez DO [address] [place] [address] PCP - General Family Medicine 04/04/23 Eliceo Gómez DO [address] [place] [address] PCP - [facility] 05/06/2310/05 Beata Hernandez PA [address] [place] [address] Dietitian Nutrition 08/08/23 05/16/24 Juan Damico DO [address] [place] [address] Referring Physician Obstetrics and Gynecology 05/20/24 documented as of this encounter
--- OUTSIDE RECORDS SUMMARY | 2025-04-30 07:43 | XMS_ITS | Encounter Summary ---
Author Organization [facility] Address [address] [facility] [place] [address] Care Team Providers Care Associate Professor Of Law Name Role Phone Eliceo Gómez DO Primary Care Provider [phone] Eliceo Gómez DO Unavailable [phone] Juan Damico DO Unavailable [phone] Encounter Details Date Type Department Care Team (Late st Contact Info) Description 07/10/2024 Abstract [facility] [address] [facility] [address] [place] [address] Eliceo Gómez DO [address] [facility] [address] [place] [address] Social History Tobacco Use Types Packs/Day Years [...] Recorded Patient Health Questionnaire-2 Score 0 07/11/2024 [facility] - Occupational Stress Questionnaire Answer Date [...] any time in the past 12 m [facility], were you homeless or living in [...] 07/11/2024 9:44 AM EDT Janeth, Log an, [employer] Feeling down, depressed, or hopeless Not at all 07/11/2024 9:44 AM EDT Mikala Fowler LPN Patient Health Questionnaire-2 Score 0 07/11/2024 9:44 AM EDT Nicole Fowler LPN documented as of this encounter Plan of Treatment Upcoming Encounters Date Type Department Care Team (Late st Contact Info) Description 11/20/2025 8:30 AM EST Office Visit [facility] [address] [place] [phone] Nelsy Harris APRN-FILM RECORDIST [address] [place] [address] documented as of this encounter Visit Diagnoses Not on filedocumented in this encounter Care Teams Associate Professor Of Law Relationship Specialty Start Date End Date Eliceo Gómez DO [address] [place] [address] PCP - General Family Medicine 04/04/23 Eliceo Gómez DO [address] [place] [address] PCP - [facility] 05/06/2310/05 Juan Damico DO [address] [place] [address] Referring Physician Obstetrics and Gynecology 05/20/24 documented as of this encounter
--- OUTSIDE RECORDS SUMMARY | 2025-04-30 07:43 | XMS_ITS | Encounter Summary ---
Author Organization [employer] Address [id number] [address] [place] [address] Care Team Providers Care Project Development Leader Name Role Phone Stephonmame Morales Eliceo Braden Primary Care Provider + Reason for Visit * Reason Onset Date Comments Bonita BROOKS 01/30/2023 Encounter Details Date Type Department Care Team (Late st Contact Info) Description 01/30/2023 Telephone [facility] Neurology [address] [place] [address] Kim Acharya RN [facility] [place] Social History Tobacco Use Types [...] PA for [employer] started on CMM Art: [email or web address] faxed to plan , waiting a response documented in this encounter Plan of Treatment Upcoming Encounters Date Type Department Care Team (Late st Contact Info) Description 06/17/2025 8:15 AM EDT Office Visit [facility] Department of [address] [place] [address] Soraida Gama PA [address] [facility] [address] [place] [address] documented as of this encounter Visit Diagnoses Not on filedocumented in this encounter Additional Health Concerns Assessment Noted Time PHQ-9 Depression Total Score: 0 01/27/20 23 1:28 PM EDT documented as of this encounter Care Teams Project Development Leader Relationship Specialty Start Date End Date Eliceo Gómez Jr., DO [address] [place] [address], [address], [place] [address] PCP - General Family Medicine 12/11/19 Jenna Butler [address] Consulting Physician Behavioral Health 12/20/23 documented as of this encounter
--- OUTSIDE RECORDS SUMMARY | 2025-04-30 07:43 | XMS_ITS | Encounter Summary ---
Author Organization [facility] Address [address] [place] [address] Care Team Providers Care Digital Pre Press Operator Name Role Phone Eliceo Gómez DO Primary Care Provider Eliceo Gómez DO Unavailable [phone] Beata Hernandez Unavailable Juan Damico DO Unavailable [phone] Encounter Details Date Type Department Care Team (Late st Contact Info) Description 06/20/2023 Abstract [facility] [address] [facility] [address] [place] [address] Juan Damico, DO [address] [facility] [address] [place] [address] Social History Tobacco Use Types Packs/Day Years [...] Recorded Patient Health Questionnaire-2 Score 0 06/08/2023 [facility] [...] DERM [address] [place] [address] Nelsy Harris, GENERAL ADMINISTRATOR-BUSINESS COMPUTERS TEACHER [address] [place] [address] documented as of this encounter Visit Diagnoses Not on filedocumented in this encounter Care Teams Digital Pre Press Operator Relationship Specialty Start Date End Date Eliceo Gómez DO [address] [place] [address] PCP - General Family Medicine 04/04/23 Eliceo Gómez DO [address] [facility] [address] [place] [address] PCP - [facility] 05/06/2310/05 Beata Hernandez PA [address] [facility] [place] [address] Dietitian Nutrition 08/08/23 05/16/24 Juan Damico DO [address] [facility] [place] [address] Referring Physician Obstetrics and Gynecology 05/20/24 documented as of this encounter
--- OUTSIDE RECORDS SUMMARY | 2025-04-30 07:43 | XMS_ITS | Encounter Summary ---
Author Organization [facility] Address [address] [place] [address] Care Team Providers Care Business Objects Analyst Name Role Phone Eliceo Gómez DO Primary Care Provider [phone] Eliceo Gómez DO Unavailable [phone] Juan Damico DO Unavailable [phone] Encounter Details Date Type Department Care Team [...] any clubs o r organizations such as evangelical groups, unions, fraternal or athletic groups, or [...] Recorded Patient Health Questionnaire-2 Score 0 07/11/2024 [facility] of Occupat ional Health - Occupational Stress [...] any time in the past 12 m [facility], were you homeless or living in a [...] DERM [address] [place] [address] Nelsy Harris, SENIOR HEALTH EDUCATOR-CABLE MECHANIC [address] [place] [address] documented as of this encounter Procedures Procedure Name Priority Date/Time Associated Diagnosis Comments XR FOOT RT MIN 3V 07/10/2024 6:5 9 AM EDT documented in this encounter Results * XR FOOT RT MIN 3V (07/10/2024 6:59 AM EDT) Anatomical Region Laterality Modality Other 07/10/2024 6:59 AM EDT Narrative 07/10/2024 7:02 AM EDT [address] [address] XRay Report Signed Patient: MARY FUENTES MR#: [id number] : 1970 Acct:[id number] Age/Sex: 54 / F ADM Date: 07/09/24 Loc: EC Attending Dr: Sade Felix D.P.M. Ordering Physician: Sade Felix D.P.M. Date of Service: 07/09/24 Procedure(s): XR foot RT min 3V Accession Number(s): [id number] cc: Sade Felix D.P.M.; Isatu GÓMEZ [address] [id number] Patient Name: MARY FUENTES MRN: [id number] date: 1970 Sex: F Assigned Patient Location: Current Patient Location: Accession/Order Number: [id number] Exam Date: 07/09/2024 10:00 Report Date: 07/10/2024 [...] Oliveros M.D. Signed By: 07/10/2402 DD/ TD/TT: Liner Checker: Procedure Note Radiology, Radiologist, MD - 07/10/2024 [place] [address] XRay Report Signed Patient: MARY FUENTES DMR#: [id number] : 1970Acct:[id number] Age/Sex: 54 / FADM Date: 07/09/24 Loc: Attending Dr: Sade Felix D.P.M. Ordering Physician: Sade Felix D.P.M. Date of Service: 07/09/24 Procedure(s): XR foot RT min 3V Accession Number(s): [id number] cc: Sade Felix D.P.M.; Isatu GÓMEZ [place] [address] Patient Name: MARY FUENTES MRN: [id number] date: 1970 Sex: F Assigned Patient Location: Current Patient Location: Accession/Order Number: [id number] Exam Date: 07/09/2024 10:00 Report Date: 07/10/2024 [...] Oliveros M.D. Signed By:07/10/24 0702 DD/ TD/TT: Liner Checker: Generic External Data Provider [facility] Final Result documented in this encounter Visit Diagnoses Not on filedocumented in this encounter Care Teams Business Objects Analyst Relationship Specialty Start Date End Date Eliceo Gómez DO [address] [place] [address] PCP - General Family Medicine 04/04/23 Eliceo Gómez DO [address] [place] [address] PCP - [facility] 05/06/2310/05 Juan Damico DO [address] [place] [address] Referring Physician Obstetrics and Gynecology 05/20/24 documented as of this encounter
--- OUTSIDE RECORDS SUMMARY | 2025-04-30 07:43 | XMS_ITS | Clinical Summary ---
Author Organization [facility] Address [address] [place] [address] Care Team Providers Care Marine Cargo Specialist Name Role Phone Eliceo Gómez DO Primary Care Provider [phone] Eliceo Gómez DO Unavailable [phone] Juan Damico DO Unavailable [phone] Allergies Active Allergy Reactions Criticality Noted Date Comments Poison Brenda Extract Rash Low 04/06/2023 Risperidone 04/22/2019 Other Reaction(s): breast discharge Medications Daridorexant HCl (Quviviq) 50 MG tabletIndicatio ns:Insomnia Take 50 mg by mouth at bedtime Active cholecalciferol (Vitamin D-3) 125 MCG (5000 UT) capsule Take 125 mcg by mouth Daily 05/27/20 24 Active L-Theanine 200 MG capsule Take 1 capsule by mouth Daily Active estradiol (Estrace) 1 MG tabletIndicatio ns:Night sweats Take 1 tablet (1 mg) by mouth Daily 90 tablet 3 09/04/20 24 025 Active colestipol (Colestid) 1 g tablet Take 1 g by mouth in the morning and 1 g in the evening. 10/23/20 24 Active Multiple Vitamin (Daily-Elisa Multivitamin) tablet Take 1 tablet by mouth Daily 11/04/20 24 Active atenolol (Tenormin) 50 MG tabletIndicatio ns:Hypertension , unspecified type Take 1 tablet (50 mg) by mouth Daily 90 tablet 1 11/27/19 25 025 Active ARIPiprazole ER (Abilify) 400 MG injection Inject 400 mg into the shoulder, thigh, or buttocks 1 (one) time Active cyproheptadine (Periactin) 4 MG tablet Take 4 mg by mouth as needed at bedtime 01/10/20 25 Active omeprazole (PriLOSEC) [address] capsuleIndicati ons:Gastro-esop hageal reflux disease without esophagitis Take 1 capsule (40 mg) by mouth in the morning. 90 capsule 3 01/21/20 25 Active losartan (Cozaar) 50 MG tabletIndicatio ns:Hypertension , unspecified type Take 1 tablet (50 mg) by mouth Daily 30 tablet 5 01/21/20 25 Active rOPINIRole (Requip) 2 MG tabletIndicatio ns:Restless legs syndrome Take 1 tablet (2 mg) by mouth at bedtime 01/21/20 25 Active fluticasone (Flonase) 50 MCG/ACT nasal sprayIndication s:Disorder of right eustachian tube Administer 2 sprays into each nostril Daily Shake gently. Before first use, prime pump. After use, clean tip and replace cap. 16 g 11 01/21/20 25 026 Active mirtazapine (Remeron) 15 MG tablet 12/26/19 25 Active meloxicam (Mobic) 15 MG tablet TAKE 1 TABLET BY MOUTH EVERY DAY FOR 30 DAYS 01/03/20 25 Active lisdexamfetamin e (Vyvanse) 60 MG capsule 01/09/20 25 Active Trelegy Ellipta 100-62.5-25 MCG/ACT aerosol powderIndicatio ns:Mild intermittent asthma, unspecified whether complicated (HCC) INHALE 1 PUFF BY MOUTH DAILY 60 each 1 02/06/20 25 Active rOPINIRole (Requip) 1 MG tabletIndicatio ns:Restless legs syndrome Take 1 tablet (1 mg) by mouth in the morning and 1 tablet (1 mg) before bedtime. 60 tablet 5 02/07/20 25 Active estradiol (Estrace) 0.1 MG/GM vaginal creamIndication s:Hormone replacement therapy,Dyspare unia in female Apply 0.5g vaginally twice weekly. 42.5 g 04/11/20 25 Active triamcinolone (Kenalog) 0.1 % creamIndication s:Erythema APPLY TO AFFECTED AREA TWICE A DAY 45 g 1 04/14/20 25 Active albuterol HFA 90 mcg/act inhalerIndicati ons:Mild intermittent asthma, unspecified whether complicated (HCC) INHALE 2 PUFFS EVERY 4 HOURS IF NEEDED FOR WHEEZING. 18 g 1 04/14/20 25 Active albuterol HFA 90 mcg/act inhalerIndicati ons:Mild intermittent asthma, unspecified whether complicated (HCC) Inhale 2 puffs every 4 (four) hours if needed for wheezing 18 g 11/13/19 25 025 Discontinued estradiol (Estrace) 0.1 MG/GM vaginal creamIndication s:Hormone replacement therapy,Dyspare unia in female Apply 0.5g vaginally twice weekly. 42.5 g 1 11/26/19 25 025 Discontinued(R eorder) triamcinolone (Kenalog) 0.1 % creamIndication s:Erythema Apply topically 2 (two) times a day 45 g 1 11/27/19 25 025 Discontinued Active Problems Problem Noted Date Diagnosed Date [...] Department Care Team Description 04/13/2025 Refill [facility] [address] [place] [address] Hyacinth King, ENERGY SCHEDULER Mild intermittent asthma, unspecified whether complicated (HCC) 04/13/2025 Refill [facility] [address] [place] [address] Juan Damico, DO Erythema 04/10/2025 Refill [facility] [address] [place] [address] Nereyda Murphy LPN Hormone replacement therapy; Dyspareunia in female 04/02/2025 Abstract [facility] [address] [place] [address] Eliceo Gómez, DO 03/17/2025 Abstract [facility] [address] [place] [address] Eliceo Gómez, DO 03/06/2025 Travel 03/06/2025 Abstract [facility] [address] [place] [address] Eliceo Gómez, DO 02/25/2025 Telephone [facility] [address] [place] [address] Eliceo Gómez, DO right ear 02/24/2025 Telephone [facility] OB [address] [place] [address] Juan Damico, DO 02/20/2025 Telephone [facility] [address] [place] [address] Eliceo Gómez, 02/06/2025 Telephone [facility] [address] [place] [address] Bernadine Hilton MA medication update 02/05/2025 Refill [facility] [address] [place] [address] Eliceo Gómez, Mild intermittent asthma, unspecified whether complicated (HCC) 01/30/2025 Abstract [facility] [address] [place] [address] Eliceo Gómez, from Last 3 Months Immunizations Immunization Administration [...] week 05/01/2024 How often do you attend [facility] or hinduism services? Never 05/01/2024 Do you belong to [...] Recorded Patient Health Questionnaire-2 Score 0 01/20/2025 [facility] of Occupat ional [facility] - Occupational Stress Questionnaire Answer [...] time in the past 12 m [facility], were you homeless or living in a [...] DERM [address] [place] [address] Nelsy Harris APRN-COFFEE BAR ATTENDANT [address] [place] [address] Health Maintenance Due Date Last Done Comments [...] has been evaluated with computer assisted technology. MAINTENANCE TEAM MEMBER QUEST Comment: EMP, CT(ASCP) CT screening location: [address] [place], [address] [place] [address]. (ALWAYS MESSAGE) AREN Comment: EXPLANATORY NOTE: The Pap is a [...] Performing Organization Information Site ID: [id number] Name: [address] [facility] Address: [address] [place] [address], [address] [place] [address] Director: Gopal Hamilton MD Juan Damico DO [...] IS VERY IMPORTANT TO YOUR HEALTH. THE [employer] GUIDELINES RECOMMEND THAT WOMEN 40 [...] IS VERY IMPORTANT TO YOUR HEALTH. THE [employer]UID[employer]INES RECOMMEND THAT WOMEN 40 YEARS [...] SIGNED BY: Quinton Carson MD Hyacinth King ENERGY SCHEDULER IMG BI PROCEDURES Final Result * Colonoscopy (03/24/2020) Anatomical Region Laterality Modality Endoscopy 03/24/2020 Narrative 03/20/2020 12:00 AM EDT PERFORMED AT [facility] LOCATION:[place] [address] Procedure Note CONVERSION, GENERIC - 03/22/2023 PERFORMED AT [facility] LOCATION:[place] [address] Eliceo Gómez DO ENDOSCOPY PROCEDURE ORDERABLE S Final Result * OCC BLD IMMUNOASSAY (03/13/2020) OCCULT BLOOD NEGATIVE NEGATIVE [facility] PERFORMING LAB: see note [facility] Comment:[facility] - Outside Installation Machinist Makenna Flores,[facility] [address] [address] ,Ext. [phone] 03/13/2020 Eliceo Gómez DO [facility] Final Result [facility] from Last 3 Months or Most Recently Relevant to Health Maintenance [place] [address] [place] [facility] MEDICARE Care Teams Marine Cargo Specialist Relationship Specialty Start Date End Date Eliceo Gómez DO [address] [place] [address] PCP - General Family Medicine 04/04/23 Eliceo Gómez DO [address] [place] [address] PCP - [facility] 05/06/2310/05 Juan Damico DO [address] [place] [address] Referring Physician Obstetrics and Gynecology 05/20/24
--- OUTSIDE RECORDS SUMMARY | 2025-04-30 07:43 | XMS_ITS | Encounter Summary ---
Author Organization [employer] Address [id number] [address] [place] [address] Care Team Providers Care Cork Molder Name Role Phone Dalia Morales DO, George R Primary Care Provider + Encounter Details Date Type Department Care Team (Late st Contact Info) Description 07/11/2023 Telephone [facility] [address] [address] Cullen Dawkins MD [address] [place] [address] [address] [place] [address] Social History Tobacco Use Types [...] MAC Surgery Time: 30 minutes Facility Preference: [facility] Post Op Destination: Outpatient When should patient follow up after surgery? 1-2 weeks Additional Comments: Yosef Horowitz documented in this encounter Plan of Treatment Upcoming Encounters Date Type Department Care Team (Late st Contact Info) Description 06/17/2025 8:15 AM EDT Office Visit Formerly [facility] Department of [address] [address] [place] [address] [place] [address] documented as of this encounter Visit Diagnoses Not on filedocumented in this encounter Additional Health Concerns Assessment Noted Time PHQ-9 Depression Total Score: 0 01/27/20 23 1:28 PM EDT documented as of this encounter Care Teams Cork Molder Relationship Specialty Start Date End Date Eliceo Gómez Jr., DO [address] [place] [address], [address], [place] [address] PCP - General Family Medicine 12/11/19 Jenna Butler [address] Consulting Physician Behavioral Health 12/20/23 documented as of this encounter
--- OUTSIDE RECORDS SUMMARY | 2025-04-30 07:43 | XMS_ITS | Encounter Summary ---
Author Organization [facility] Address [address] [email or web address] [address] Care Team Providers Care Telegraph Service Rater Name Role Phone Eliceo óGmez DO Primary Care Provider Eliceo Gómez DO Unavailable [phone] Beata Hernandez Unavailable Juan Damico DO Unavailable [phone] Encounter Details Date Type Department Care Team (Late st Contact Info) Description 05/18/2023 Orders Only [facility] [address] [facility] [address] [place] [address] Provider, MD Pilo [address] [place] [address] Social History Tobacco Use Types Packs/Day [...] Recorded Patient Health Questionnaire-2 Score 0 04/06/2023 [facility] of Occupat [...] DERM [address] [place] [address] Nelsy Harris, HARNESS TIER-EARLY CHILDHOOD SPECIAL EDUCATOR [address] [place] [address] documented as of this encounter Procedures Procedure Name Priority Date/Time Associated Diagnosis Comments XR CHEST 1 VIEW Routine 05/18/2023 9:[address] FOOT RIGHT W CONTRAST [id number] Routine 05/18/2023 9:07 AM EDT XR FOOT 3+ VIEWS RIGHT Routine 05/18/2023 8:25 AM EDT documented in this encounter Results * XR chest 1 view (05/18/2023 9:19 AM EDT) Anatomical Region Laterality Modality Chest Radiographic Ira ging Historical Provider IMG XR PROCEDURES Final R esult * CT FOOT RIGHT W CONTRAST [id number] (05/18/2023 9:07 AM EDT) Anatomical Region Laterality Modality Radiographic Ira ging Historical Provider IMG XR PROCEDURES Final R esult * XR foot 3+ views right (05/18/2023 8:25 AM EDT) Anatomical Region Laterality Modality Lower Extremities, Foot Right Radiogra phic Imaging Historical Provider IMG XR PROCEDURES Final R esult documented in this encounter Visit Diagnoses Not on filedocumented in this encounter Care Teams Telegraph Service Rater Relationship Specialty Start Date End Date Eliceo Gómez DO [address] [place] [address] PCP - General Family Medicine 04/04/23 Eliceo Gómez DO [address] [place] [address] PCP - [facility] 05/06/2310/05 Beata Hernandez PA [address] [place] [address] Dietitian Nutrition 08/08/23 05/16/24 Juan Damico DO [address] [place] [address] Referring Physician Obstetrics and Gynecology 05/20/24 documented as of this encounter
--- OUTSIDE RECORDS SUMMARY | 2025-04-30 07:43 | XMS_ITS | Encounter Summary ---
Author Organization [facility] Address [address] [facility] [place] [address] Care Team Providers Care Kiln Burner Helper Name Role Phone Eliceo Gómez DO Primary Care Provider [phone] Eliceo Gómez DO Unavailable [phone] Juan Damico DO Unavailable [phone] Encounter Details Date Type Department Care Team (Late st Contact Info) Description 06/24/2024 Abstract [facility] [address] [facility] 230 [place] [address] Eliceo Gómez DO [address] [facility] [address] [place] [address] Social History Tobacco Use Types Packs/Day Years [...] Recorded Patient Health Questionnaire-2 Score 0 06/12/2024 [facility] [place] of Occupat ionms Health - Occupational Stress [...] DERM [address] [place] [address] Nelsy Harris, CLINICAL LABORATORY ASSISTANT-[place] RAMP AGENT [address] [place] [address] documented as of this encounter Visit Diagnoses Not on filedocumented in this encounter Care Teams Kiln Burner Helper Relationship Specialty Start Date End Date Eliceo Gómez, DO [address] [place] [address] PCP - General Family Medicine 04/04/23 Eliceo Gómez, DO [address] [place] [address] PCP - [facility] 05/06/2310/05 Juan Damico, DO [address] [place] [address] Referring Physician Obstetrics and Gynecology 05/20/24 documented as of this encounter
--- OUTSIDE RECORDS SUMMARY | 2025-04-30 07:43 | XMS_ITS | Encounter Summary ---
Author Organization [facility] Address [address] [facility] [place] [address] Care Team Providers Care Shook Splicer Name Role Phone Eliceo Gómez DO Primary Care Provider [phone] Eliceo Gómez DO Unavailable [phone] Beata Hernandez Unavailable Juan Damico DO Unavailable [phone] Encounter Details Date Type Department Care Team (Late st Contact Info) Description 06/28/2023 Orders Only [facility] [address] [facility] [address] [place] [address] A, Unknown Practice [address] [place] [address] Social History Tobacco Use Types Packs/Day Years [...] Recorded Patient Health Questionnaire-2 Score 0 06/08/2023 [facility] - Occupational Stress Questionnaire Answer Date [...] DERM [address] [place] [address] Nelsy Harris APRN-AUTOMATION ENGINEER [address] [place] [address] documented as of this encounter [...] on filedocumented in this encounter Care Teams Shook Splicer Relationship Specialty Start Date End Date Eliceo Gómez DO [address] [place] [address] PCP - General Family Medicine 04/04/23 Eliceo Gómez, DO [address] [place] [address] PCP - [facility] 05/06/2310/05 Beata Hernandez PA [address] [place] [address] Dietitian Nutrition 08/08/23 05/16/24 Juan Damico, [address] [place] [address] Referring Physician Obstetrics and Gynecology 05/20/24 documented as of this encounter
--- OUTSIDE RECORDS SUMMARY | 2025-04-30 07:43 | XMS_ITS | Encounter Summary ---
Author Organization [facility] Address [address] [place] [address] Care Team Providers Care Sales Representative Leather Goods Name Role Phone Eliceo Gómez DO Primary Care Provider [phone] Eliceo Gómez DO Unavailable [phone] Beata Hernandez Unavailable Juan Damico DO Unavailable [phone] Encounter Details Date Type Department Care Team (Late st Contact Info) Description 01/24/2024 Abstract [facility] FM [address] [facility] [address] [place] [address] Eliceo Gómez, DO [address] [facility] [address] [place] [address] Social History Tobacco Use Types Packs/Day Years [...] Recorded Patient Health Questionnaire-2 Score 0 10/03/2023 [facility] of Occupat ional Health - [...] DERM [address] [place] [address] Nelsy Harris, IDENTIFIER HORSE-PAVER OPERATOR [address] [place], [place] [address] documented as of this encounter Visit Diagnoses Not on filedocumented in this encounter Care Teams Sales Representative Leather Goods Relationship Specialty Start Date End Date Eliceo Gómez DO [address] [place] [address] PCP - General Family Medicine 04/04/23 Eliceo Gómez DO [address] [place] [address] [facility] 05/06/2310/05 Beata Hernandez PA [address] [place] [address] Dietitian Nutrition 08/08/23 05/16/24 Juan Damico, [address] [place] [address] Referring Physician Obstetrics and Gynecology 05/20/24 documented as of this encounter
--- OUTSIDE RECORDS SUMMARY | 2025-04-30 07:43 | XMS_ITS | Encounter Summary ---
Author Organization [facility] Address [address] [place] [address] Care Team Providers Care Circular Knitter Helper Name Role Phone HernandezEliceo randolph Asiya DO Primary Care Provider [phone] Eliceo Gómez DO Unavailable [phone] Beata Hernandez Unavailable Juan Damico DO Unavailable [phone] Encounter Details Date Type Department Care Team (Late st Contact Info) Description 04/13/2023 Orders Only [facility] [address] [facility] [address] [place] [address] Jacob Felix MD [address] [place] [address] [place] [address] Social History Tobacco Use Types Packs/Day Years [...] you attend chur or muslim services? Never 04/14/2023 Do you belong to [...] slept in a longterm (including now)? No 04/14/2023 Comments Unknown Sex [...] [address] [place] [address] Nelsy Harris, GAS TORCH BRAZIER-PEDIATRIC NURSE [address] [place] [address] documented as of this encounter Procedures Procedure [...] on filedocumented in this encounter Care Teams Circular Knitter Helper Relationship Specialty Start Date End Date Eliceo Gómez DO [address] [place] [address] PCP - General Family Medicine 04/04/23 Eliceo Gómez DO [address] [place] [address] PCP - [facility] 05/06/2310/05 Beata Hernandez PA [address] [place] [address] Dietitian Nutrition 08/08/23 05/16/24 Juan Damico DO [address] [place] [address] Referring Physician Obstetrics and Gynecology 05/20/24 documented as of this encounter
--- OUTSIDE RECORDS SUMMARY | 2025-04-30 07:43 | XMS_ITS | Encounter Summary ---
Author Organization [facility] tem Address [facility]-[id number] [address] [place] [address] Care Team Providers Care Excelsior Machine Operator Name Role Phone Dalia Morales DO, George R Primary Care Provider + Reason for Visit * Reason Onset Date Comments Pt wants to schedule surgery 11/24/2023 Encounter Details Date Type Department Care Team ([facility] st Contact Info) Description 11/24/2023 Telephone [facility] Center - ENT [address] [place] [address], [address] [place] [address] Cullen Dawkins MD [address] [place] [address] [address] [place] [address] Pt wants to schedule surgery [...] 06/17/2025 8:15 AM EDT Office Visit [facility], A Department of [facility] [address] [facility] [address] [place] [address] Soraida Gama PA [address] [facility] [address] [place] [address] documented as of this encounter Visit Diagnoses Not on filedocumented in this encounter Additional Health Concerns Assessment Noted Time PHQ-9 Depression Total Score: 0 10/23/20 23 1:26 PM EST documented as of this encounter Care Teams Excelsior Machine Operator Relationship Specialty Start Date End Date Eliceo Gómez Jr., [address] [place] [address], [address] [address] PCP - General Family Medicine 12/11/19 Jenna Butler [address] Consulting Physician Behavioral Health 12/20/23 documented as of this encounter
--- OUTSIDE RECORDS SUMMARY | 2025-04-30 07:43 | XMS_ITS | Encounter Summary ---
Author Organization [employer] Address [facility]-[id number] [address] [place] [address] Care Team Providers Care Medical Records Clerk Name Role Phone Dalia Morales DO Eliceo Braden Primary Care Provider + Encounter Details Date Type Department Care Team (Late st Contact Info) Description 10/18/2023 [facility]phone [facility] [address] [place] [address] Kim Acharya RN Social History [...] I got a message from Yosef from [employer] about a denial for Inspire from [facility]. It was apparently denied because the med notes don't clarify why she stopped using the CPAP and they needed further clarification. We can do [id number] once we have the information. There is a string of telephone encounters in [facility] from 03/02/23, where we had recommended CPAP, [...] documentation after call was ended. Will send [employer] message with additional information needed. * Telephone Encounter - Kim Acharya RN - 10/18/2023 11:34 AM EST Patient responded to [employer] message stating that Dr. Todd Noe had [...] will draft appeal letter and fax to [place] once completed. * Telephone Encounter - Kim Acharya RN - 10/18/2023 11:34 AM EST Appeal letter written and faxed to [place] [facility] and appeals. Will wait response [...] Apnea Device. She can be reached at [phone] * Telephone Encounter - Kim Acharya RN - 10/18/2023 11:34 AM EST Called to check status of appeal but had to leave VM with department asking for call back regarding appeal. * Telephone Encounter - Kim Acharya RN - 10/18/2023 11:34 AM EST Received transferred call from Tracie at [employer]. She stated she does not see RN's appeal that was sent for Inspire on 10/19. RN verified fax # that was on letter that RN sent letter to. She stated she has a fax # to be sent that is [phone]. RN stated will try to refax letter to new fax #. She also provided secondary fax # of [phone]. RN faxed appeal to both #s listed above. Sent patient message via [employer] with update. Received fax confirmation on both #s * Telephone Encounter - Kim Acharya RN - 10/18/2023 11:34 AM EST RN received fax from [employer] stating that they received appeal for Inspire but it needs to be sent via mail. RN sent all appeal information to [employer] as listed on the fax and placed in outgoing mail. * Telephone Encounter - Kim Acharya RN - 10/18/2023 11:34 AM EST Received letter in mail from [employer] stating that it appears this is a post appeal dispute and needs to be sent to correct address . RN marked on letter that service has not been completed until approved so this is a pre service appeal and that was the address that appeal was sent to. Also marked that this needs to marked as urgent since [employer] has provided misinformation to our office on many occasions and we need to not delay patient care any further. * Telephone Encounter - Kim Acharya RN - 10/18/2023 11:34 AM EST RN had email from [employer] stating approval came through for device after faxing to # provided by rep for appeals. Letter scanned in under media. RN informed patient via [employer]. documented in this encounter Plan of Treatment Upcoming Encounters Date Type Department Care Team (Late st Contact Info) Description 06/17/2025 8:15 AM EDT Office Visit [facility], A Department of [facility] [address] [facility] [address] [place] [address] Soraida Gama PA [address] [facility] 103 [place] [address] documented as of this encounter Visit Diagnoses Not on filedocumented in this encounter Additional Health Concerns Assessment Noted Time PHQ-9 Depression Total Score: 0 01/27/20 23 1:28 PM EDT documented as of this encounter Care Teams Medical Records Clerk Relationship Specialty Start Date End Date Eliceo Gómez Jr., [address] [place] [address], [address] [address] PCP - General Family Medicine 12/11/[address] Consulting Physician Behavioral Health 12/20/23 documented as of this encounter
--- OUTSIDE RECORDS SUMMARY | 2025-04-30 07:43 | XMS_ITS | Encounter Summary ---
Author Organization [facility] Address [address] [facility] [address] Care Team Providers Care Observation Assistant Name Role Phone Eliceo Gómez DO Primary Care Provider [phone] Eliceo Gómez DO Unavailable [phone] Juan Damico DO Unavailable [phone] Encounter Details Date Type Department Care Team (Late st Contact Info) Description 07/10/2024 Abstract [facility] [address] [facility] 230 [place] [address] Eliceo Gómez DO [address] [facility] 230 [place] [address] Social History Tobacco Use Types Packs/Day Years [...] you attend chur or gnosticism services? Never 05/01/2024 Do you belong to any clubs o r organizations such as jew groups, unions, fraternal or athletic groups, or [...] Recorded Patient Health Questionnaire-2 Score 0 07/11/2024 [facility] Occupat ionor Health - Occupational [...] time in the past 12 m [place], were you homeless or living in a [...] 07/11/2024 9:44 AM EDT Janeth, Log an, MARRIAGE AND FAMILY THERAPIST Feeling down, depressed, or hopeless Not at all 07/11/2024 9:44 AM EDT Mikala Fowler LPN Patient Health Questionnaire-2 Score 0 07/11/2024 9:44 AM EDT Nicole Fowler LPN documented as of this encounter Plan of Treatment Upcoming Encounters Date Type Department Care Team (Late st Contact Info) Description 11/20/2025 8:30 AM EST Office Visit [facility] [address] [place] [address] Nelsy Harris APRN-REPAIRER RESISTANCE WELDING MACHINES [address] [place] [address] documented as of this encounter Visit Diagnoses Not on filedocumented in this encounter Care Teams Observation Assistant Relationship Specialty Start Date End Date Eliceo Gómez DO [address] [place] [address] PCP - General Family Medicine 04/04/23 Eliceo Gómez DO [address] [place] [address] PCP - [facility] 05/06/2310/05 Juan Damico DO [address] [place] [address] Referring Physician Obstetrics and Gynecology 05/20/24 documented as of this encounter
--- OUTSIDE RECORDS SUMMARY | 2025-04-30 07:43 | XMS_ITS | Encounter Summary ---
Author Organization [facility] Address [address] [place] [address] Care Team Providers Care Senior Trainer Name Role Phone Eliceo Gómez DO Primary Care Provider [phone] Eliceo Gómez DO Unavailable [phone] Beata Hernandez Unavailable Juan Damico DO Unavailable [phone] Encounter Details Date Type Department Care Team (Late st Contact Info) Description 06/21/2023 Abstract [facility] FM [address] [facility] [address] [place] [phone] Eliceo Gómez, DO [address] [facility] 230 [place] [address] Social History Tobacco Use Types Packs/Day Years [...] How often do you attend chur or taoist services? Never 04/14/2023 Do you belong to [...] Recorded Patient Health Questionnaire-2 Score 0 06/08/2023 [facility] - Occupational Stress Questionnaire [...] [address] [place] [address] Nelsy Harris, TELEPHONE STATION INSTALLER-MARKETING PROGRAMS SPECIALIST [address] [place] [address] documented as of this encounter Visit Diagnoses Not on filedocumented in this encounter Care Teams Senior Trainer Relationship Specialty Start Date End Date Eliceo Gómez DO [address] [place] [address] PCP - General Family Medicine 04/04/23 Eliceo Gómez DO [address] [facility] [address] [place] [address] PCP - [facility] 05/06/2310/05 Beata Hernandez PA [address] [facility] [place] [address] Dietitian Nutrition 08/08/23 05/16/24 Juan Damico DO [address] [facility] [place] [address] Referring Physician Obstetrics and Gynecology 05/20/24 documented as of this encounter
--- OUTSIDE RECORDS SUMMARY | 2025-04-30 07:43 | XMS_ITS | Encounter Summary ---
Author Organization [facility] Address [address] [place] [address] Care Team Providers Care Acid Dumper Name Role Phone HernandezEliceo randolph Asiya DO Primary Care Provider [phone] Eliceo Gómez DO Unavailable [phone] Beata Hernandez Unavailable Juan Damico DO Unavailable [phone] Encounter Details Date Type Department Care Team (Late st Contact Info) Description 04/14/2023 Orders Only [facility] [address] [facility] [address] [place] [address] Jacob Felix MD [address] [place] [address] [place] [address] Social History Tobacco Use Types Packs/Day Years [...] Recorded Patient Health Questionnaire-2 Score 0 04/06/2023 [facility] of Occupat ional Health [...] [address] [place] [address] Nelsy Harris, METEOROLOGICAL AIDE-AGENT TELEGRAPHER [address] [place] [address] documented as of this encounter Procedures Procedure [...] filedocumented in this encounter Care Teams Acid Dumper Relationship Specialty Start Date End Date Eliceo Gómez DO [address] [place] [address] PCP - General Family Medicine 04/04/23 Eliceo Gómez DO [address] [place] [address] PCP - [facility] 05/06/2310/05 Beata Hernandez PA [address] [place] [address] Dietitian Nutrition 08/08/23 05/16/24 Juan Damico DO [address] [place] [address] Referring Physician Obstetrics and Gynecology 05/20/24 documented as of this encounter
--- OUTSIDE RECORDS SUMMARY | 2025-04-30 07:43 | XMS_ITS ---
Author Organization [facility] Address [address] [place] [address] Care Team Providers Care Metal Coater Name Role Phone HernandezEliceo randolph Asiya LOAIZA Primary Care Provider [phone] Eliceo Gómez DO Unavailable [phone] Juan Damico DO Unavailable [phone] Active Problems Problem Noted Date Diagnosed Date [...]
--- OUTSIDE RECORDS SUMMARY | 2025-04-30 07:43 | XMS_ITS | Encounter Summary ---
Author Organization [facility] Address [address] [place] [address] Care Team Providers Care Dry Cleaning Supervisor Name Role Phone Eliceo Gómez DO Primary Care Provider [phone] Eliceo Gómez DO Unavailable [phone] Beata Hernandez Unavailable Juan Damico DO Unavailable Encounter Details Date Type Department Care Team (Late st Contact Info) Description 03/04/2024 Abstract [facility] [address] [facility] [address] [place] [address] Eliceo Gómez, DO [address] [facility] 230 [place] [address] Social History Tobacco Use Types Packs/Day Years [...] attend chur or roman catholic services? Never 04/14/2023 Do you belong [...] Recorded Patient Health Questionnaire-2 Score 0 10/03/2023 [facility] of Occupat ional Health [...] DERM [address] [place] [address] Nelsy Harris, ELECTRONIC INSTRUMENT TRADES WORKER-CLASSROOM TECHNOLOGY COACH [address] [place], [place] [address] documented as of this encounter Visit Diagnoses Not on filedocumented in this encounter Care Teams Dry Cleaning Supervisor Relationship Specialty Start Date End Date Eliceo Gómez DO [address] [place] [address] PCP - General Family Medicine 04/04/23 Eliceo Gómez DO [address] [place] [address] [facility] 05/06/2310/05 Beata Hernandez PA [address] [place] [address] Dietitian Nutrition 08/08/23 05/16/24 Juan Damico, [address] [place] [address] Referring Physician Obstetrics and Gynecology 05/20/24 documented as of this encounter
--- OUTSIDE RECORDS SUMMARY | 2025-04-30 07:43 | XMS_ITS | Encounter Summary ---
Author Organization [facility] Address [address] [facility] [place] [address] Care Team Providers Care Knitter Hand Name Role Phone Eliceo Gómez DO Primary Care Provider [phone] Eliceo Gómez DO Unavailable [phone] Beata Hernandez Unavailable Juan Damico DO Unavailable [phone] Encounter Details Date Type Department Care Team (Late st Contact Info) Description 06/07/2023 Orders Only [facility] [address] [facility] [address] [place] [address] A, Unknown Practice [address] [place] [address] Social History Tobacco Use Types Packs/Day Years [...] How often do you attend chur or anglican services? Never 04/14/2023 Do you belong to [...] Recorded Patient Health Questionnaire-2 Score 0 06/08/2023 [facility] - Occupational Stress Questionnaire Answer [...] [address] [place] [address] PradeepNelsy randall Thomas, HARNESSMAKER-RESEARCH SUBJECT [address] [place] [address] documented as of this encounter Procedures Procedure [...] on filedocumented in this encounter Care Teams Knitter Hand Relationship Specialty Start Date End Date Eliceo Gómez DO [address] [place] [address] PCP - General Family Medicine 04/04/23 lEiceo Gómez DO [address] [place] [address] PCP - [facility] 05/06/2310/05 Beata Hernandez PA [address] [place] [address] Dietitian Nutrition 08/08/23 05/16/24 Juan Damico DO [address] [place] [address] Referring Physician Obstetrics and Gynecology 05/20/24 documented as of this encounter
--- OUTSIDE RECORDS SUMMARY | 2025-04-30 07:43 | XMS_ITS | Encounter Summary ---
Author Organization [facility] tem Address [facility]-[id number] [address] [place] [address] Care Team Providers Care Behaviorist Name Role Phone Dalia Morales DO, George R Primary Care Provider + Encounter Details Date Type Department Care Team ([facility] st Contact Info) Description 09/19/2023 Telephone [facility] - ENT [address] [place] [address], [address] [place] [address] [place] [address] [place] [address] [address] [place] [address] Social History Tobacco Use Types [...] Description 06/17/2025 8:15 AM EDT Office Visit [facility], A Department of [facility] [address] [place] [address] Soraida Gama PA [address] [facility] 103 [place] [address] documented as of this encounter Visit Diagnoses Not on filedocumented in this encounter Additional Health Concerns Assessment Noted Time PHQ-9 Depression Total Score: 0 01/27/20 23 1:28 PM EDT documented as of this encounter Care Teams Behaviorist Relationship Specialty Start Date End Date Eliceo óGmez Jr., [address] [place] [address], [address], [place] [address] PCP - General Family Medicine 12/11/19 Jenna Butler [address] Consulting Physician Behavioral Health 12/20/23 documented as of this encounter
--- OUTSIDE RECORDS SUMMARY | 2025-04-30 07:43 | XMS_ITS | Encounter Summary ---
Author Organization [facility] Address [address] [facility] [place] [address] Care Team Providers Care Intervention Specialist Name Role Phone Eliceo Gómez DO Primary Care Provider [phone] Eliceo Gómez DO Unavailable [phone] Juan Damico DO Unavailable [phone] Encounter Details Date Type Department Care Team (Late st Contact Info) Description 06/20/2024 Abstract [facility] [address] [facility] 230 [place] [address] Eliceo Gómez DO [address] [facility] 230 [place] [address] Social History Tobacco Use Types Packs/Day Years [...] Recorded Patient Health Questionnaire-2 Score 0 06/12/2024 [facility] of Occupat ionnm Health - Occupational Stress [...] DERM [address] [place] [address] Nelsy Harris, CYCLE REPAIRER-SPECIAL LOAN OFFICER [address] [place] [address] documented as of this encounter Visit Diagnoses Not on filedocumented in this encounter Care Teams Intervention Specialist Relationship Specialty Start Date End Date Eliceo Gómez, DO [address] [place] [address] PCP - General Family Medicine 04/04/23 Eliceo Gómez, DO [address] [place] [address] PCP - [facility] 05/06/2310/05 Juan Damico, DO [address] [place] [address] Referring Physician Obstetrics and Gynecology 05/20/24 documented as of this encounter
--- OUTSIDE RECORDS SUMMARY | 2025-04-30 07:43 | XMS_ITS | Encounter Summary ---
Author Organization [facility] Address [address] [facility] [place] [place] [address] Care Team Providers Care Game Designer Name Role Phone Eliceo Gómze DO Primary Care Provider [phone] Eliceo Gómez DO Unavailable [phone] Beata Hernandez Unavailable Juan Damico DO Unavailable [phone] Encounter Details Date Type Department Care Team (Late st Contact Info) Description 06/12/2023 Orders Only [facility] 230 [address] [facility] [address] [place] [address] A, Unknown Practice [address] [place] [address] Social History Tobacco Use Types Packs/Day Years [...] Recorded Patient Health Questionnaire-2 Score 0 06/08/2023 [facility] - Occupational Stress Questionnaire Answer Date [...] DERM [address] [place] [address] Nelsy Harris APRN-FINANCIAL DEVELOPER [address] [place] [address] documented as of this encounter [...] on filedocumented in this encounter Care Teams Game Designer Relationship Specialty Start Date End Date Eliceo Gómez DO [address] [place] [address] PCP - General Family Medicine 04/04/23 Eliceo Gómze DO [address] [place] [address] PCP - [facility] 05/06/2310/05 Beata Hernandez PA [address] [place] [address] Dietitian Nutrition 08/08/23 05/16/24 uJan Damico, DO [address] [place] [address] Referring Physician Obstetrics and Gynecology 05/20/24 documented as of this encounter
--- OUTSIDE RECORDS SUMMARY | 2025-04-30 07:43 | XMS_ITS | Encounter Summary ---
Author Organization [employer] Address [facility]-[id number] [address] [place] [address] Care Team Providers Care Pipe And Boiler Covers Supervisor Name Role Phone Dalia Morales DO, George R Primary Care Provider + Encounter Details Date Type Department Care Team (Late st Contact Info) Description 12/26/2023 Telephone [facility] [address] [place] [address] April Mccarty Social History Tobacco [...] 12/26/2023 12:28 PM EST Patient also sent [employer] message regarding the matter. RN sent on [...] down. Please call back and advise, callback#: [phone]. * Telephone Encounter - Pauline Christensen MD - 12/26/2023 12:28 PM EST I will have Yosef the Inspire Rep call her. Thank you documented in this encounter Plan of Treatment Upcoming Encounters Date Type Department Care Team (Late st Contact Info) Description 06/17/2025 8:15 AM EDT Office Visit [facility], A Department of [facility] [address] [facility] 103 [place] [address] Soraida Gama PA [address] [facility] [address] [place] [address] documented as of this encounter Visit Diagnoses Not on filedocumented in this encounter Additional Health Concerns Assessment Noted Time PHQ-9 Depression Total Score: 0 10/23/20 23 1:26 PM EST documented as of this encounter Care Teams Pipe And Boiler Covers Supervisor Relationship Specialty Start Date End Date Elicoe Gómez Jr., DO [address] [place] [address], [address], [place] [address] PCP - General Family Medicine 12/11/19 Jenna Butler [address] [place] [address] Consulting Physician Behavioral Health 12/20/23 documented as of this encounter
--- OUTSIDE RECORDS SUMMARY | 2025-04-30 07:43 | XMS_ITS | Encounter Summary ---
Author Organization [facility] Address [address] [facility] [place] [address] Care Team Providers Care Charge Out Clerk Name Role Phone Eliceo Gómez DO Primary Care Provider [phone] Eliceo Gómez DO Unavailable [phone] Beata Hernandez Unavailable Juan Damico DO Unavailable [phone] Encounter Details Date Type Department Care Team (Late st Contact Info) Description 05/19/2023 Orders Only [facility] 230 [address] [facility] [address] [place] [address] Provider, MD Pilo [address] [place] [address] Social History Tobacco Use Types Packs/Day [...] often do you attend chur ch or catholic services? Never 04/14/2023 Do you [...] Recorded Patient Health Questionnaire-2 Score 0 04/06/2023 [facility] Occupat ional Health - [...] DERM [address] [place] [address] Nelsy Harris, PIPE FITTER WELDING-TUBE CUTTER OPERATOR [address] [place] [address] documented as of this encounter [...] on filedocumented in this encounter Care Teams Charge Out Clerk Relationship Specialty Start Date End Date Eliceo Gómez, DO [address] [place] [address] PCP - [facility] Medicine 04/04/23 Eliceo Gómez DO [address] [place] [address] PCP - [facility] 05/06/2310/05 Beata Hernandez PA [address] [place] [address] Dietitian Nutrition 08/08/23 05/16/24 Juan Damico DO [address] [place] [address] Referring Physician Obstetrics and Gynecology 05/20/24 documented as of this encounter
--- OUTSIDE RECORDS SUMMARY | 2025-04-30 07:43 | XMS_ITS | Encounter Summary ---
Author Organization [facility] Address [address] [place] [address] Care Team Providers Care Sales Department Clerk Name Role Phone Eliceo Gómez DO Primary Care Provider [phone] Eliceo Gómez DO Unavailable [phone] Juan Damico DO Unavailable [phone] Encounter Details Date Type Department Care Team [...] any clubs o r organizations such as voodoo groups, unions, fraternal or athletic groups, or [...] Recorded Patient Health Questionnaire-2 Score 0 06/12/2024 [facility] of Occupat ional Health [...] any time in the past 12 m [facility], were you homeless or living [...] DERM [address] [place] [address] Nelsy Harris APRN-COVERSTITCH BINDER [address] [place] [address] documented as of this encounter Procedures Procedure Name Priority Date/Time Associated Diagnosis Comments XR FOOT RT MIN 3V 06/22/2024 12: 28 PM EDT documented in this encounter Results * XR FOOT RT MIN 3V (06/22/2024 12:28 PM EDT) Anatomical Region Laterality Modality Other 06/22/2024 12:2 8 PM EDT Narrative 06/22/2024 12:30 [place] [address] XRay Report Signed Patient: ELSIE FUENTES MR#: [id number] : 1970 Acct:[id number] Age/Sex: 54 / F ADM Date: 06/19/24 Loc: EC Attending Dr: Sade Felix D.P.M. Ordering Physician: Sade Felix D.P.M. Date of Service: 06/19/24 Procedure(s): XR foot RT min 3V Accession Number(s): [id number] cc: Sade Felix D.P.M.; Isatu GÓMEZ [place] [address] Patient Name: ELSIE FUENTES MRN: [id number] date: 1970 Sex: F Assigned Patient Location: Current Patient Location: [facility] Accession/Order Number: [id number] Exam Date: 06/19/2024 13:30 Report Date: 06/22/2024 [...] M.D. Signed By: 06/22/24 1230 DD/ TD/TT: Prep Manager: Procedure Note Radiology, Radiologist, - 06/22/2024 [place] [address] XRay Report Signed Patient: ELSIE FUENTES DMR#: [id number] : 1970Acct:[id number] Age/Sex: 54 / FADM Date: 06/19/24 Loc: EC Attending Dr: Sade Felix D.P.M. Ordering Physician: Sade Felix D.P.M. Date of Service: 06/19/24 Procedure(s): XR foot RT min 3V Accession Number(s): [id number] cc: Sade Felix D.P.M.; Isatu GÓMEZ [place] [address] Patient Name: ELSIE FUENTES MRN: [id number] date: 1970 Sex: F Assigned Patient Location: Current Patient Location: [facility] Accession/Order Number: [id number] Exam Date: 06/19/2024 13:30 Report Date: 06/22/2024 [...] M.D. Signed By:06/22/24 1230 DD/ 27 TD/TT: Prep Manager: Generic External Data Provider [facility] Final Result documented in this encounter Visit Diagnoses Not on filedocumented in this encounter Care Teams Sales Department Clerk Relationship Specialty Start Date End Date Eliceo Gómez DO [address] [place] [address] PCP - General Family Medicine 04/04/23 Eliceo Gómez DO [address] [place] [address] PCP - [facility] 05/06/2310/05 Juan Damico DO [address] [place] [address] Referring Physician Obstetrics and Gynecology 05/20/24 documented as of this encounter
--- OUTSIDE RECORDS SUMMARY | 2025-04-30 07:43 | XMS_ITS | Encounter Summary ---
Author Organization [facility] Address [address] [place] [address] Care Team Providers Care Capacity Planning Manager Name Role Phone Eliceo Gómez DO Primary Care Provider [phone] Eliceo Gómez DO Unavailable [phone] Beata Hernandez Unavailable Juan Damico DO Unavailable [phone] Encounter Details Date Type Department Care Team [...] Recorded Patient Health Questionnaire-2 Score 0 10/03/2023 [facility] - Occupational Stress Questionnaire Answer Date [...] DERM [address] [place] [phone] Nelsy Harris APRN-AUDIOVISUAL PRODUCTION SPECIALIST [address] [place] [address] documented as of this encounter Procedures Procedure Name Priority Date/Time Associated Diagnosis Comments XR FOOT RT MIN 3V 02/29/2024 6:3 7 AM EDT documented in this encounter Results * XR FOOT RT MIN 3V (02/29/2024 6:37 AM EDT) Anatomical Region Laterality Modality Other 02/29/2024 6:37 AM EDT Narrative 02/29/2024 6:40 AM EDT The [address] [address] XRay Report Signed Patient: MARY FUENTES MR#: [id number] : 1970 Acct:[id number] Age/Sex: 53 / F ADM Date: 02/28/24 Loc: EC Attending Dr: Sade Felix D.P.M. Ordering Physician: Sade Felix D.P.M. Date of Service: 02/28/24 Procedure(s): XR foot RT min 3V Accession Number(s): [id number] cc: Sade Felix D.P.M.; Isatu GÓMEZ The [place] [id number] Patient Name: MARY FUENTES MRN: [id number] date: 1970 Sex: F Assigned Patient Location: Current Patient Location: Accession/Order Number: [id number] Exam Date: 02/28/2024 09:13 Report Date: 02/29/2024 [...] Oliveros M.D. Signed By: 02/29/2440 DD/ TD/TT: Care Transition Manager: Procedure Note Radiology, Radiologist, MD - 02/29/2024 [place] [address] XRay Report Signed Patient: MARY FUENTES DMR#: [id number] : 1970Acct:[id number] Age/Sex: 53 / FADM Date: 02/28/24 Loc: EC Attending Dr: Sade Felix D.P.M. Ordering Physician: Sade Felix D.P.M. Date of Service: 02/28/24 Procedure(s): XR foot RT min 3V Accession Number(s): [id number] cc: Sade Felix D.P.M.; Isatu GÓMEZ [place] [address] Patient Name: MARY FUENTES MRN: [id number] date: 1970 Sex: F Assigned Patient Location: EC Current Patient Location: Accession/Order Number: [id number] Exam Date: 02/28/2024 09:13 Report Date: 02/29/2024 [...] Adam Oliveros M.D. Signed By:02/29/2440 DD/ TD/TT: Care Transition Manager: us Generic External Data Provider [facility] Final Result documented in this encounter Visit Diagnoses Not on filedocumented in this encounter Care Teams Capacity Planning Manager Relationship Specialty Start Date End Date Eliceo Gómez DO [address] [place] [address] PCP - General Family Medicine 04/04/23 Eliceo Gómez DO [address] [place] [address] PCP - [facility] 05/06/2310/05 Beata Hernandez PA [address] [place] [address] Dietitian Nutrition 08/08/23 05/16/24 Juan Damico, DO [address] [place] [address] Referring Physician Obstetrics and Gynecology 05/20/24 documented as of this encounter
--- OUTSIDE RECORDS SUMMARY | 2025-04-30 07:43 | XMS_ITS | Encounter Summary ---
Author Organization [facility] Address [id number] [address] [place] [address] Care Team Providers Care Telehealth Case Manager Name Role Phone Dalia Morales DO Eliceo Braden Primary Care Provider + Encounter Details Date Type Department Care Team (Late st Contact Info) Description 10/03/2023 Telephone [facility] Neurology [address] [place] [address] Kim Acharya RN Social History [...] to patient since he was contacted by [facility] stating patient was reaching out [...] 06/17/2025 8:15 AM EDT Office Visit [facility] [address] [facility] [address] [place] [address] Soraida Gama PA [address] [facility] [address] [place] [address] documented as of this encounter Visit Diagnoses Not on filedocumented in this encounter Additional Health Concerns Assessment Noted Time PHQ-9 Depression Total Score: 0 01/27/20 23 1:28 PM EDT documented as of this encounter Care Teams Telehealth Case Manager Relationship Specialty Start Date End Date Eliceo Gómez Jr., [address] [place] [address], [address] [address] PCP - General Family Medicine 12/11/19 Jenna Butler [address] Consulting Physician Behavioral Health 12/20/23 documented as of this encounter
--- OUTSIDE RECORDS SUMMARY | 2025-04-30 07:43 | XMS_ITS | Encounter Summary ---
Author Organization [facility] Address [address] [place] [address] Care Team Providers Care Miter Saw Operator Name Role Phone Eliceo Gómez DO Primary Care Provider [phone] Eliceo Gómez DO Unavailable [phone] Beata Hernandez Unavailable Juan Damico DO Unavailable [phone] Encounter Details Date Type Department Care Team (Late st Contact Info) Description 05/22/2023 Orders Only [facility] [address] [place] [address] Eliceo Gómez, DO [address] [place] [address] Social History Tobacco Use Types Packs/Day Years [...] Patient Health Questionnaire-2 Score 0 04/06/2023 [facility] of Occupat ional Health [...] slept in a fpc (including now)? No 04/14/2023 Comments No Sex [...] DERM [address] [place] [address] Nelsy Harris APRN-PATIENT CARE REPRESENTATIVE [address] [place] [address] documented as of this encounter [...] on filedocumented in this encounter Care Teams Miter Saw Operator Relationship Specialty Start Date End Date Eliceo Gómez DO [address] [place] [address] PCP - General Family Medicine 04/04/23 Eliceo Gómez DO [address] [place] [address] PCP - [facility] 05/06/2310/05 Beata Hernandez PA [address] [place] [address] Dietitian Nutrition 08/08/23 05/16/24 Juan Damico DO [address] [place] [address] Referring Physician Obstetrics and Gynecology 05/20/24 documented as of this encounter
--- OUTSIDE RECORDS SUMMARY | 2025-04-30 07:44 | XMS_ITS | Encounter Summary ---
Author Organization [facility] Address [address] [facility] [place] [address] Care Team Providers Care Pipe Threader Name Role Phone Eliceo Gómez DO Primary Care Provider [phone] Eliceo Gómez DO Unavailable [phone] Juan Damico DO Unavailable [phone] Encounter Details Date Type Department Care Team (Late st Contact Info) Description 05/29/2024 Abstract [facility] [address] [facility] [address] [place] [address] Eliceo Gómez DO [address] [facility] [address] [place] [address] Social History Tobacco Use Types Packs/Day Years [...] you attend chur or uatsdin services? Never 05/01/2024 Do you belong to [...] Recorded Patient Health Questionnaire-2 Score 0 05/14/2024 [facility] [place] of Occupat ionsd Health - Occupational Stress [...] in the past 12 m [facility], were you homeless or living in a [...] DERM [address] [place] [address] Nelsy Harris, AIRSET CASTER-RELIABILITY TECHNOLOGIST [address] [place] [address] documented as of this encounter Visit Diagnoses Not on filedocumented in this encounter Care Teams Pipe Threader Relationship Specialty Start Date End Date Eliceo Gómez, DO [address] [place] [address] PCP - General Family Medicine 04/04/23 Eliceo Gómez, DO [address] [place] [address] PCP - [facility] 05/06/2310/05 Juan Damico, DO [address] [place] [address] Referring Physician Obstetrics and Gynecology 05/20/24 documented as of this encounter
--- OUTSIDE RECORDS SUMMARY | 2025-04-30 07:44 | XMS_ITS | Encounter Summary ---
Author Organization [facility] Address [address] [place] [address] Care Team Providers Care Atmospheric Physicist Name Role Phone Eliceo Gómez DO Primary Care Provider Eliceo Gómez DO Unavailable [phone] Beata Hernandez Unavailable Juan Damico DO Unavailable [phone] Encounter Details Date Type Department Care Team (Late st Contact Info) Description 04/18/2024 Abstract [facility] [address] [facility] [address] [place] [address] Eliceo Gómez, DO [address] [facility] [address] [place] [address] Social History Tobacco Use Types Packs/Day Years [...] Recorded Patient Health Questionnaire-2 Score 0 03/14/2024 [facility] of Occupat ional Health - Occupational [...] DERM [address] [place] [address] Nelsy Harris, HOME BASED ASSISTANT-SUPERVISOR KENNEL [address] [place], [place] [address] documented as of this encounter Visit Diagnoses Not on filedocumented in this encounter Care Teams Atmospheric Physicist Relationship Specialty Start Date End Date Eliceo Gómez DO [address] [place] [address] PCP - General Family Medicine 04/04/23 Eliceo Gómez DO [address] [place] [address] [facility] 05/06/2310/05 Beata Hernandez PA [address] [place] [address] Dietitian Nutrition 08/08/23 05/16/24 Juan Damico, [address] [place] [address] Referring Physician Obstetrics and Gynecology 05/20/24 documented as of this encounter
--- OUTSIDE RECORDS SUMMARY | 2025-04-30 07:44 | XMS_ITS | Encounter Summary ---
Author Organization [facility] Address [address] [facility] [place] [address] Care Team Providers Care Marine Firefighter Name Role Phone Eliceo Gómez DO Primary Care Provider [phone] Eliceo Gómez DO Unavailable [phone] Juan Damico DO Unavailable [phone] Encounter Details Date Type Department Care Team (Late st Contact Info) Description 05/27/2024 Abstract [facility] [address] [facility] [address] [place] [address] Eliceo Gómez DO [address] [facility] [address] [place] [address] Social History Tobacco Use Types Packs/Day Years [...] Recorded Patient Health Questionnaire-2 Score 0 05/14/2024 [facility] [place] of Occupat ionwv Health - Occupational Stress [...] DERM [address] [place] [address] Nelsy Harris, HAIR DESIGNER-ENTRY ENGINEER [address] [place] [address] documented as of this encounter Visit Diagnoses Not on filedocumented in this encounter Care Teams Marine Firefighter Relationship Specialty Start Date End Date Eliceo Gómez, DO [address] [place] [address] PCP - General Family Medicine 04/04/23 Eliceo Gómez, DO [address] [place] [address] PCP - [facility] 05/06/2310/05 Juan Damico, DO [address] [place] [address] Referring Physician Obstetrics and Gynecology 05/20/24 documented as of this encounter
--- OUTSIDE RECORDS SUMMARY | 2025-04-30 07:44 | XMS_ITS | Patient Health Record ---
Author Organization [facility] in [place] Address [address] [place] [address] Care Team Providers Care Restaurant Bartender Name Role Phone Rudy Rigo LOAIZA Primary Care Provider UnavailSade Frances Unavailable [phone] Falguni Duron Unavailable [phone] Allergies No Known Allergies Results Component Value Reference Range Notes XR foot RT min 3V (Not yet r eviewed by provider) Interpretation: Performing Lab: Notes/Report: Source Facility: [place] [address] XRay Report Signed Patient: MARY FUENTES MR#: [id number] : 1970 Acct:[id number] Age/Sex: 54 / F ADM Date: 10/01/24 Loc: RAD Attending Dr: Sade Felix D.P.M. Ordering Physician: Sade Felix D.P.M. Date of Service: 10/01/24 Procedure(s): XR foot RT min 3V Accession Number(s): [id number] cc: Sade Felix D.P.M.; Isatu CASTRO [place] [address] Patient Name: MARY FUENTES MRN: [id number] date: 1970 Sex: F Assigned Patient Location: RAD Current Patient Location: RAD Accession/Order Number: [id number] Exam Date: 10/01/2024 07:45 Report Date: 10/03/2024 [...] M.D. Signed By: 10/03/24927 DD/ 4 TD/TT: Internal Medicine Nurse: [place] [address] XRay Report Signed Patient: CRISTY FUENTES MR#: [id number] : 1970 Acct:[id number] Age/Sex: 54 / F ADM Date: 10/01/24 Loc: TINY Attending Dr: Sade Felix D.P.M. Ordering Physician: Sade Felix D.P.M. Date of Service: 10/01/24 Procedure(s): XR ryan t RT min 3V Accession Number(s): [id number] cc: Sade Felix D.P.M.; Isatu CASTRO [place] [address] Patient Name: MARY FUENTES MRN: [id number] date: 1970 Sex: F Assigned Patient Location: RAD Current Patient Loca tion: RAD Accession/Order Numb er: [id number] Exam Date: 07:45 Report Date: 10/03/2024 09:25 [...] M.D. Signed By: 10/03/24927 DD/ 4 TD/TT: Internal Medicine Nurse: XR foot RT min 3V (Not yet r eviewed by provider) Interpretation: Performing Lab: Notes/Report: Source Facility: [place] [address] XRay Report Signed Patient: MARY FUENTES MR#: [id number] : 1970 Acct:[id number] Age/Sex: 54 / F ADM Date: 01/03/25 Loc: EC Attending Dr: Sade Felix D.P.M. Ordering Physician: Sade Felix D.P.M. Date of Service: 01/03/25 Procedure(s): XR foot RT min 3V Accession Number(s): [id number] cc: Sade Felix D.P.M.; Isatu CASTRO [place] [address] Patient Name: MARY FUENTES MRN: [id number] date: 1970 Sex: F Assigned Patient Location: Current Patient Location: Accession/Order Number: [id number] Exam Date: 01/03/2025 12:17 Report Date: 01/03/2025 [...] Makenna Pathak M.D.01/03/2025 12:21 PM Dictation Location: [place] [address] Electronically authenticated by: [id number] Y Date: 01/03/2025 12:21 Dictated By: Makenna Pathak M.D. Signed By: 01/03/25 1223 DD/ 1221 TD/TT: Internal Medicine Nurse: [place] [address] XRay Report Signed Patient: CRISTY FUENTES MR#: [id number] : 1970 Acct:[id number] Age/Sex: 54 / F ADM Date: 01/03/25 Loc: EC Attending Dr: Sade Felix D.P.M. Ordering Physician: Sade Felix D.P.M. Date of Service: 01/03/25 Procedure(s): XR ryan t RT min 3V Accession Number(s): [id number] cc: Sade Felix D.P.M.; Isatu CASTRO [place] [id number] Patient Name: MARY FUENTES MRN: [id number] date: 1970 Sex: F Assigned Patient Location: Current Patient Loca tion: EC Accession/Order Numb er: [id number] Exam Date: 01/03/2025 12:17 Report Date: 01/03/2025 12:21 At the request of: SADE FELIX DPDirk Procedure: XR foot R T min 3V [...] Makenna Pathak M.D.01/03/2025 12:21 PM Dictation Location: [place] [address] Electronically authenticated by: [id number] Y Date: 01/03/2025 12:21 Dictated By: Makenna Pathak M.D. Signed By: 01/03/25 1223 DD/ 1221 TD/TT: Internal Medicine Nurse: XR Foot RT (3 views) * Reviewed date:11/04/2024 02:42:58 PM Interpretation: Performing Lab: Notes/Report: FL fluoroscopy <1hr NON-READ (Not yet reviewed by provider) Interpretation: Performing Lab: Notes/Report: Source Facility: [place] [address] Fluoroscopy Report Signed Patient: MARY FUENTES MR#: [id number] : 1970 Acct:[id number] Age/Sex: 54 / F ADM Date: 05/27/24 Loc: MS 221-[address]: Sade Felix D.P.M. Ordering Physician: Sade Felix D.P.M. Date of Service: 05/27/24 Procedure(s): FL fluoroscopy <1hr NON-READ Accession Number(s): [id number] cc: Sade Felix D.P.M.; Isatu CASTRO [place] [address] Patient Name: MARY FUENTES MRN: [facility]:[id number] date: 1970 Sex: F Assigned Patient Location: [facility] Current Patient Location: MS Accession/Order Number: [id number] Exam Date: 05/27/2024 11:35 Report Date: 05/29/2024 08:32 At the request of: SADE FELIX Procedure: FL fluoroscopy <1hr NON-READ EXAM: FL fluoroscopy <1hr NON-READ HISTORY: TECHNIQUE: FINDINGS: Please see Operative Report. Electronically authenticated by: RADIOLOGIST NO Date: 05/29/2024 08:32 Dictated By: Lana,Radiologist Signed By: 05/29/24833 DD/ 1 TD/TT: Internal Medicine Nurse: [place] [address] Fluoroscopy Report Signed Patient: CRISTY FUENTES MR#: [id number] : 1970 Acct:[id number] Age/Sex: 54 / F ADM Date: 05/27/24 Loc: [place] 221-[address]: Sade Felix D.P.M. Ordering Physician: Sade Felix D.P.M. Date of Service: 05/27/24 Procedure(s): FL fluoroscopy <1hr NON-READ Accession Number(s): [id number] cc: Sade Felix D.P.M.; Isatu CASTRO [place] [id number] Patient Name: MARY FUENTES MRN: [id number] date: 1970 Sex: F Assigned Patient Location: [facility] Current Patient Loca tion: MS Accession/Order Numb er: [id number] Exam Date: 05/27/2024 11:35 Report Date: 05/29/2024 08:32 At the request of: SADE FELIX Procedure: FL fluoro scopy <1hr NON-READ EXAM: FL fluoroscopy <1hr NON-READ HISTORY: TECHNIQUE: FINDINGS: Please see Operative Report. Electronically authenticated by: RADIOLOGIST NO Date: 05/29/2024 08:32 Dictated By: Lana,Radiologist Signed By: 05/29/24833 DD/ 1 TD/TT: Internal Medicine Nurse: CBC AUTO DIFF (Not yet revie wed by provider) Interpretation: Performing Lab: Notes/Report: [facility] , White Blood Count 6.5 4.0-11.0 10 [...] Performing Lab: see note ML - [facility] LB XR Foot RT (3 views) * Reviewed date:11/04/2024 01:26:00 PM Interpretation: Performing Lab: Notes/Report: Reason For Referral Reason Compression stocking s Diagnosis 1 Right foot pain (M79 .671) Referral Organization [facility] (PODIATRY) Referring Provider First Name Sade Referring [...] Problem Status W/U Status Risk Notes Problem 77938164 Essential (primary) hypertension (I10) Active confirmed Problem 002950659 Gastro-esophagea l reflux disease without esophagitis (K21.9) Active confirmed Problem 0742246930519334 Primary osteoarthritis, right ankle and foot (M19.071) Active confirmed Problem 406321050164691 Peroneal tendinitis, right leg (M76.71) Active confirmed Problem 1084860589664086 Posterior tibia l tendinitis, left leg (M76.822) Active confirmed Problem 440642875 Unspecified subluxation of right foot, sequela (S93.301S) Active confirmed Problem Presence of righ t artificial ankle joint (Z96.661) Active confirmed Problem 329751704 Presence of functional implant, unspecified (Z96.9) Active confirmed Problem Gastroesophageal reflux disease (224024577) GERD (gastroesophageal reflux disease) (K21.9) Active confirmed Problem Sleep apnea (32742912) Sleep apnea (G47.30) Active confirmed Problem Bipolar disorder (81009623) Bipolar disorder (F31.9) Active confirmed Problem Generalized anxiety disorder (87331940) JOLEEN (generalized anxiety disorder) (F41.1) Active confirmed Problem Panic disorder (435816418) Panic attacks (F41.0) Active confirmed Problem Iron deficiency anemia (46261054) Anemia, iron deficiency (D50.9) Active confirmed Problem Osteoarthritis of right foot (4347877917132467) Osteoarthritis of right foot (M19.071) Active confirmed Problem Primary osteoarthritis (447542123) Primary osteoarthritis (M19.91) Active confirmed Problem Localized, primary osteoarthritis of the ankle and/or foot (065432157) Osteoarthritis of ankle, right (M19.071) Active confirmed Problem Essential hypertension (83705107) BP (high blood pressure) (I10) Active confirmed Problem 3631129978259348 Arthritis of le ft foot (M19.072) Active confirmed Problem 6096009068046260 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671 [facility] (PODIATRY) [address] [place] [address] [place] [address] 01/03/2025 Sade Felix Posterior tibial tendon dysfunction (PTTD) of right lower extremity M76.821 ; Primary osteoarthritis, right ankle and foot M19.071 and Right foot pain M79.671 [facility] (PODIATRY) [address] [place] [address] [place] [address] 05/07/2024 Sade Felix Peroneal tendinitis, right leg M76.71 ; Pain due to internal orthopedic prosthetic devices, implants and grafts, initial encounter T84.84XA ; Primary osteoarthritis, right ankle and foot M19.071 ; Pain in right ankle and joints of right foot M25.571 and Strain of muscle(s) and tendon(s) of peroneal muscle group at lower leg level, right leg, initial encounter S86.311A [facility] (PODIATRY) [address] [place] [address] [place] [address] 07/09/2024 Sade Felix Osteoarthritis of right foot M19.071 and Unspecified subluxation of right foot, sequela S93.301S [facility] (PODIATRY) [address] [place] [address] [place] [address] 07/30/2024 Sade Felix Right foot pain M79.671 and Pain due to bone fixation device, initial encounter T84.84XA [facility] (PODIATRY) [address] [place] [address] [place] [address] 10/01/2024 Sade Felix Pain due to bone fixation device, initial encounter T84.84XA ; Posterior tibial tendon dysfunction (PTTD) of right lower extremity M76.821 ; Osteoarthritis of right foot M19.071 and Right foot pain M79.671 [facility] (PODIATRY) [address] [place] [address] [place] [address] 06/05/2024 Sade Felix Pain due to bone fixation device, initial encounter T84.84XA and Posterior tibial tendon dysfunction (PTTD) of right lower extremity M76.821 [facility] (PODIATRY) [address] [place] [address] [place] [address] 06/19/2024 Sade Felix Osteoarthritis of right foot M19.071 and Pain due to bone fixation device, initial encounter T84.84XA [facility] [address] [place] [place] [address] 05/27/2024 Sade Felix [facility] (PODIATRY) [address] [place] [address] [place] [address] 05/30/2024 Sade Felix [facility] (PODIATRY) [address] [facility] [place] [address] 06/05/2024 Sade Felix [facility] (PODIATRY) [address] [facility] [place] [address] 06/18/2024 Falguni Hayen [facility] (PODIATRY) [address] [facility] [place] [address] 01/03/2025 Sade [facility] (PODIATRY) [address] [facility] [place] [address] 05/08/2024 [facility] (PODIATRY) [address] [place] [address] [place] [address] 05/16/2024 Falguni Oliverio Assessments Encounter Date Diagnosis (ICD Code) Assessment Notes Treatment Notes Treatment Clinical Notes Section Notes 06/05/2024 Pain due to bone fixation device, initial encounter (ICD-10 - T84.84XA) Patient is 1 weeks that is post removal of titanium Campbell wedge, bone debridement and grafting. She has been nonweightbearing. She is on Lovenox and has no calf pain or evidence of clot. No signs of infection today. She is taking 2-3 [place] per day and is requesting refill which [...] well as stretching exercises. Finally I prescribed [place] 5/325 1 by mouth every 6 hours [...] Osteoarthritis of right foot (ICD-10 - M19.071) 10/01/2024 Right foot pain (ICD-10 - M79.671) [...] Date XR Foot RT (3 views) * 07/09/2024 XR Foot RT (3 views) * 01/03/2025 XR Foot RT (3 views) * 06/19/2024 CBC AUTO DIFF 05/17/2024 XR foot RT min 3V 10/03/2024 XR foot RT min 3V 01/03/2025 XR foot RT min 3V 08/03/2023 ECG 12 lead 11/03/2023 FL fluoroscopy <1hr NON-READ 05/29/2024 Insurance Providers Payer Name Payer Address Payer Phone Subscriber Number Group Number Insured Name Patient Relationship to Insured Coverage Start Date Coverage End Date [facility] PRIMARY MEDICARE [address] [place] [address] [id number] Mary Fuentes Self - patient is the insured [place] 2ND INS [address] OFFICE OF [facility] [address] [place], [place] [id number] Mary Fuentes Self - patient is the insured 4 [place] [address] [id number] Mary Fuentes Self - patient is the [...]
--- OUTSIDE RECORDS SUMMARY | 2025-04-30 07:44 | XMS_ITS | Encounter Summary ---
Author Organization [facility] Address [address] [place] [address] Care Team Providers Care Locomotive Pipe Fitter Name Role Phone Eliceo Gómez DO Primary Care Provider [phone] Eliceo Gómez DO Unavailable [phone] Beata Hernandez Unavailable Juan Damico DO Unavailable [phone] Encounter Details Date Type Department Care Team (Late st Contact Info) Description 04/12/2024 Abstract [facility] FM [address] [facility] [address] [place] [address] Eliceo Gómez, DO [address] [facility] [address] [place] [address] Social History Tobacco Use Types Packs/Day Years [...] Recorded Patient Health Questionnaire-2 Score 0 03/14/2024 [facility] of Occupat ional Health - [...] in a usp (including now)? No 10/25/2023 Comments No Sex [...] DERM [address] [place] [address] Nelsy Harris, BUMBOATER-TWITCHELL OPERATOR [address] [place], [place] [address] documented as of this encounter Visit Diagnoses Not on filedocumented in this encounter Care Teams Locomotive Pipe Fitter Relationship Specialty Start Date End Date Eliceo Gómez DO [address] [place] [address] PCP - General Family Medicine 04/04/23 Eliceo Gómez DO [address] [place] [address] [facility] 05/06/2310/05 Beata Hernandez PA [address] [place] [address] Dietitian Nutrition 08/08/23 05/16/24 Juan Damico, [address] [place] [address] Referring Physician Obstetrics and Gynecology 05/20/24 documented as of this encounter
--- OUTSIDE RECORDS SUMMARY | 2025-04-30 07:44 | XMS_ITS | Encounter Summary ---
Author Organization [facility] Address [address] [facility] [place] [address] Care Team Providers Care Auto Locator Name Role Phone Eliceo Gómez DO Primary Care Provider [phone] Eliceo Gómez DO Unavailable [phone] Juan Damico DO Unavailable [phone] Encounter Details Date Type Department Care Team (Late st Contact Info) Description 05/29/2024 Abstract [facility] FM [address] [facility] [address] [place] [address] Eliceo Gómez DO [address] [facility] [address] [place] [address] Social History Tobacco Use Types Packs/Day Years [...] How often do you attend chur or evangelical services? Never 05/01/2024 Do you belong to [...] Recorded Patient Health Questionnaire-2 Score 0 05/14/2024 [facility] of Occupat ionil Health - Occupational Stress [...] time in the past 12 m [facility], were you homeless or living in a [...] DERM [address] [place] [address] Nelsy Harris, DATABASE ENGINEER-EYEGLASS FRAME TRUER [address] [place] [address] documented as of this encounter Visit Diagnoses Not on filedocumented in this encounter Care Teams Auto Locator Relationship Specialty Start Date End Date Eliceo Gómez, DO [address] [place] [address] PCP - General Family Medicine 04/04/23 Eliceo Gómez, DO [address] [place] [address] PCP - [facility] 05/06/2310/05 Juan Damico, DO [address] [place] [address] Referring Physician Obstetrics and Gynecology 05/20/24 documented as of this encounter
--- OUTSIDE RECORDS SUMMARY | 2025-04-30 07:44 | XMS_ITS | Encounter Summary ---
Author Organization [facility] tem Address [id number] [address] [place] [address] Care Team Providers Care Shank Burnisher Name Role Phone Dalia Morales DO Eliceo Braden Primary Care Provider + Encounter Details Date Type Department Care Team (Late Contact Info) Description 12/23/2019 Telephone [facility] [address] [facility] [address] [place] [address] Jenifer Helm, MAKI Social History [...] Description 06/17/2025 8:15 AM EDT Office Visit [facility], A Department of [facility] [address] [facility] [address] [place] [address] Soraida Gama PA [address] [facility] [address] [place] [address] documented as of this encounter Visit Diagnoses Not on filedocumented in this encounter Additional Health Concerns Infection Onset Date Last Indicated Resolved Time COVID-19 Rule-Out 09/22/2020 09/22/2020 09/22/2020 3:17 PM EST documented as of this encounter Care Teams Shank Burnisher Relationship Specialty Start Date End Date Eliceo Gómez Jr., [address] [place] [address], [address] [address] PCP - General Family Medicine 12/11/19 Jenna Butler [address] Consulting Physician Behavioral Health 12/20/23 documented as of this encounter
--- OUTSIDE RECORDS SUMMARY | 2025-04-30 07:44 | XMS_ITS | Encounter Summary ---
Author Organization [facility] Address [address] [place] [address] Care Team Providers Care Aircraft Layout Worker Name Role Phone Eliceo Gómez DO Primary Care Provider [phone] Eliceo Gómez DO Unavailable [phone] Beata Hernandez Unavailable Juan Damico DO Unavailable [phone] Encounter Details Date Type Department Care Team (Late st Contact Info) Description 04/15/2024 Abstract [facility] FM [address] [facility] [address] [place] [address] Eliceo Gómez, DO [address] [facility] [address] [place] [address] Social History Tobacco Use Types Packs/Day Years [...] you attend chur or jain services? Never 04/14/2023 Do you belong to [...] Recorded Patient Health Questionnaire-2 Score 0 03/14/2024 [facility] of Occupat ional Health - Occupational Stress [...] [address] [place] [address] Nelsy Harris, AMPOULE WASHING MACHINE OPERATOR-BARBACK [address] [place], [place] [address] documented as of this encounter Visit Diagnoses Not on filedocumented in this encounter Care Teams Aircraft Layout Worker Relationship Specialty Start Date End Date Eliceo Gómez DO [address] [place] [address] PCP - General Family Medicine 04/04/23 Eliceo Gómez DO [address] [place] [address] [facility] 05/06/2310/05 Beata Hernandez PA [address] [place] [address] Dietitian Nutrition 08/08/23 05/16/24 Juan Damico, [address] [place] [address] Referring Physician Obstetrics and Gynecology 05/20/24 documented as of this encounter
--- OUTSIDE RECORDS SUMMARY | 2025-04-30 07:44 | XMS_ITS | Encounter Summary ---
Author Organization [facility] Address [address] [facility] [place] [address] Care Team Providers Care Coil Former Name Role Phone Eliceo Gómez DO Primary Care Provider [phone] Eliceo Gómez DO Unavailable [phone] Juan Damico DO Unavailable Encounter Details Date Type Department Care Team (Late st Contact Info) Description 05/27/2024 Abstract [facility] FM [address] [facility] [address] [place] [address] Eliceo Gómez DO [address] [facility] [address] [place] [address] Social History Tobacco Use Types Packs/Day Years [...] How often do you attend chur or judaism services? Never 05/01/2024 Do you belong to [...] Recorded Patient Health Questionnaire-2 Score 0 05/14/2024 [facility] of Occupat ionor Health - Occupational Stress [...] DERM [address] [place] [address] Nelsy Harris, RETAIL SPECIALIST-LABORER [employer] [address] [place] [address] documented as of this encounter Visit Diagnoses Not on filedocumented in this encounter Care Teams Coil Former Relationship Specialty Start Date End Date Eliceo Gómez, DO [address] [place] [address] PCP - General Family Medicine 04/04/23 Eliceo Gómez, DO [address] [place] [address] PCP - [facility] 05/06/2310/05 Juan Damico, DO [address] [place] [address] Referring Physician Obstetrics and Gynecology 05/20/24 documented as of this encounter
--- OUTSIDE RECORDS SUMMARY | 2025-04-30 07:44 | XMS_ITS | Encounter Summary ---
Author Organization [facility] Address [address] [place] [address] Care Team Providers Care Chief Design Branch Name Role Phone Eliceo Gómez DO Primary Care Provider [phone] Eliceo Gómez DO Unavailable [phone] Beata Hernandez Unavailable Juan Damico DO Unavailable [phone] Encounter Details Date Type Department Care Team (Late st Contact Info) Description 03/07/2024 Abstract [facility] FM [address] [facility] [address] [place] [address] Eliceo Gómez, DO [address] [facility] [address] [place] [address] Social History Tobacco Use Types Packs/Day Years [...] DERM [address] [place] [address] Nelsy Harris, STITCHER STANDARD MACHINE-BIAZZI NITRATOR OPERATOR [address] [place], [place] [address] documented as of this encounter Visit Diagnoses Not on filedocumented in this encounter Care Teams Chief Design Branch Relationship Specialty Start Date End Date Eliceo Gómez DO [address] [place] [address] PCP - General Family Medicine 04/04/23 Eliceo Gómez DO [address] [place] [address] [facility] 05/06/2310/05 Beata Hernandez PA [address] [place] [address] Dietitian Nutrition 08/08/23 05/16/24 Juan aDmico, [address] [place] [address] Referring Physician Obstetrics and Gynecology 05/20/24 documented as of this encounter
--- OUTSIDE RECORDS SUMMARY | 2025-04-30 07:44 | XMS_ITS | Encounter Summary ---
Author Organization [facility] Address [address] [facility] [place] [address] Care Team Providers Care Grant Officer Name Role Phone Eliceo Gómez DO Primary Care Provider [phone] Eliceo Gómez DO Unavailable [phone] Juan Damico DO Unavailable [phone] Encounter Details Date Type Department Care Team (Late st Contact Info) Description 05/17/2024 Abstract [facility] [address] [facility] [address] [place] [address] Eliceo Gómez DO [address] [facility] [address] [place] [address] Social History Tobacco Use Types Packs/Day Years [...] Recorded Patient Health Questionnaire-2 Score 0 05/14/2024 [facility] [place] [facility] Occup[facility] - Occupational Stress Questionnaire Answer Date [...] in a correction (including now)? No 10/25/2023 Housing Stability Vital [...] were you homeless or living in a correction (including now)? No 05/01/2024 Comments No Sex [...] DERM [address] [place] [address] Nelsy Harris, PYTHON JAVA DEVELOPER-HOIST WORKER [address] [place] [address] documented as of this encounter Visit Diagnoses Not on filedocumented in this encounter Care Teams Grant Officer Relationship Specialty Start Date End Date Eliceo Gómez, DO [address] [place] [address] PCP - General Family Medicine 04/04/23 Eliceo Gómez, DO [address] [place] [address] PCP - [facility] 05/06/2310/05 Juan Damico, DO [address] [place] [address] Referring Physician Obstetrics and Gynecology 05/20/24 documented as of this encounter
--- OUTSIDE RECORDS SUMMARY | 2025-04-30 07:44 | XMS_ITS | Encounter Summary ---
Author Organization [facility] Address [address] [place] [address] Care Team Providers Care Dot Etcher Apprentice Name Role Phone Eliceo Gómez DO Primary Care Provider [phone] Eliceo Gómez DO Unavailable [phone] Beata Hernandez Unavailable Juan Damico DO Unavailable [phone] Encounter Details Date Type Department Care Team [...] Recorded Patient Health Questionnaire-2 Score 0 03/14/2024 [facility] - Occupational Stress Questionnaire Answer [...] DERM [address] [place] [id number] Nelsy Harris APRN-MAGISTERIAL DISTRICT JUDGE [address] [place] [address] documented as of this encounter Procedures Procedure Name Priority Date/Time Associated Diagnosis Comments XR FOOT RT MIN 3V 04/17/2024 1:1 7 PM EDT documented in this encounter Results * XR FOOT RT MIN 3V (04/17/2024 1:17 PM EDT) Anatomical Region Laterality Modality Other 04/17/2024 1:17 PM EDT Narrative 04/17/2024 1:20 PM EDT The [address] [address] XRay Report Signed Patient: ELSIE FUENTES MR#: [id number] : 1970 Acct:[id number] Age/Sex: 53 / F ADM Date: 04/17/24 Loc: EC Attending Dr: Sade Felix D.P.M. Ordering Physician: Sade Felix D.P.M. Date of Service: 04/17/24 Procedure(s): XR foot RT min 3V Accession Number(s): [id number] cc: Sade Felix D.P.M.; Isatu GÓMEZ The [place] [address] Patient Name: ELSIE FUENTES MRN: [id number] date: 1970 Sex: F Assigned Patient Location: Current Patient Location: Accession/Order Number: [id number] Exam Date: 04/17/2024 11:50 Report Date: 04/17/2024 [...] Signed By: 04/17/24 1320 DD/ 1317 TD/TT: Jewelry Coater: Procedure Note Radiology, Radiologist, MD - 04/17/2024 [place] [address] XRay Report Signed Patient: ELSIE FUENTES DMR#: [id number] : 1970Acct:[id number] Age/Sex: 53 / FADM Date: 04/17/24 Loc: EC Attending Dr: Sade Felix D.P.M. Ordering Physician: Sade Felix D.P.M. Date of Service: 04/17/24 Procedure(s): XR foot RT min 3V Accession Number(s): [id number] cc: Sade Felix D.P.M.; Isatu GÓMEZ [place] [address] Patient Name: ELSIE FUENTES MRN: [id number] date: 1970 Sex: F Assigned Patient Location: Current Patient Location: Accession/Order Number: [id number] Exam Date: 04/17/2024 11:50 Report Date: 04/17/2024 [...] M.D. Signed By:04/17/24 1320 DD/ 1317 TD/TT: Jewelry Coater: us Generic External Data Provider [facility] Final Result documented in this encounter Visit Diagnoses Not on filedocumented in this encounter Care Teams Dot Etcher Apprentice Relationship Specialty Start Date End Date Eliceo Gómez DO [address] [place] [address] PCP - General Family Medicine 04/04/23 Eliceo Gómez DO [address] [place] [address] [facility] 05/06/2310/05 Beata Hernandez PA [address] [facility] [address] [place] [address] Dietitian Nutrition 08/08/23 05/16/24 Juan Damico DO [address] [facility] [address] [place] [address] Referring Physician Obstetrics and Gynecology 05/20/24 documented as of this encounter
--- OUTSIDE RECORDS SUMMARY | 2025-04-30 07:44 | XMS_ITS | Encounter Summary ---
Author Organization [facility] Address [address] [place] [address] Care Team Providers Care State'S Attorney Name Role Phone Eliceo Gómez DO Primary Care Provider [phone] Eliceo Gómez DO Unavailable [phone] Beata Hernandez Unavailable Juan Damico DO Unavailable [phone] Encounter Details Date Type Department Care Team [...] Patient Health Questionnaire-2 Score 0 03/14/2024 [facility] - Occupational Stress Questionnaire Answer [...] DERM [address] [place] [phone] Nelsy Harris APRN-HELP DESK SUPPORT [address] [place] [address] documented as of this encounter Procedures Procedure Name Priority Date/Time Associated Diagnosis Comments XR FOOT RT MIN 3V 03/20/2024 10: 17 AM EDT documented in this encounter Results * XR FOOT RT MIN 3V (03/20/2024 10:17 AM EDT) Anatomical Region Laterality Modality Other 03/20/2024 10:1 7 AM EDT Narrative 03/20/2024 10:19 AM EDT The [address] [address] XRay Report Signed Patient: MARY FUENTES MR#: [id number] : 1970 Acct:[id number] Age/Sex: 53 / F ADM Date: 03/20/24 Loc: EC Attending Dr: Sade Felix D.P.M. Ordering Physician: Sade Felix D.P.M. Date of Service: 03/20/24 Procedure(s): XR foot RT min 3V Accession Number(s): [id number] cc: Sade Felix D.P.M.; Isatu GÓMEZ [place] [address] Patient Name: MARY FUENTES MRN: [id number] date: 1970 Sex: F Assigned Patient Location: Current Patient Location: Accession/Order Number: [id number] Exam Date: 03/20/2024 09:50 Report Date: 03/20/2024 [...] Signed By: 03/20/24 1019 DD/ 1017 TD/TT: Vaccinator: Procedure Note Radiology, Radiologist, MD - 03/20/2024 [place] [address] XRay Report Signed Patient: MARY FUENTES DMR#: [id number] : 1970Acct:[id number] Age/Sex: 53 / FADM Date: 03/20/24 Loc: EC Attending Dr: Sade Felix D.P.M. Ordering Physician: Sade Felix D.P.M. Date of Service: 03/20/24 Procedure(s): XR foot RT min 3V Accession Number(s): [id number] cc: Sade Felix D.P.M.; Isatu GÓMEZ [place] [address] Patient Name: MARY FUENTES MRN: [id number] date: 1970 Sex: F Assigned Patient Location: Current Patient Location: EC Accession/Order Number: [id number] Exam Date: 03/20/2024 09:50 Report Date: 03/20/2024 [...] M.D. Signed By:03/20/24 1019 DD/ 1017 TD/TT: Vaccinator: us Generic External Data Provider [facility] Final Result documented in this encounter Visit Diagnoses Not on filedocumented in this encounter Care Teams State'S Attorney Relationship Specialty Start Date End Date Eliceo Gómez DO [address] [facility] [address] [place] [address] PCP - General Family Medicine 04/04/23 Eliceo Gómez DO [address] [place] [address] [facility] 05/06/2310/05 Beata Hernandez PA [address] [place] [address] Dietitian Nutrition 08/08/23 05/16/24 Juan Damico DO [address] [place] [address] Referring Physician Obstetrics and Gynecology 05/20/24 documented as of this encounter
--- NOTE | 2025-04-30 07:55 | PM.CN ---
Consult Note: HPI Data of Consult Patient: known to practice within the last 3 years Requesting Physician: Monica Burns NP Primary Care Provider: Isatu CASTRO Consult Narrative Reason for consult: low back pain Narrative: Mary Sage a pleasant 55 year old female presents for evaluation of chronic low back pain. hx of lumbar spondylosis unresponsive to > 6 weeks of PT/HEP, heat, ice, tylenol, nsaids. currently utilizing mobic 15mg daily and lidocaine patches prn. pain today 7/10 increasing to 10/10 with standing, bending, walking, twisting, pushing, pulling, lifting. eleno numbness, tingling, weakness. of note recently underwent left T8/9 T9/10 intercostal RFA with >80% improvement ongoing. cc:: CC: Monica Burns NP Review of Systems ROS Status of ROS 10 or more systems reviewed and unremarkable except as noted in history and below Musculoskeletal Reports: back pain PFSH PFSH Medical History (Updated 04/30/25 @ 07:58 by Monica Burns NP) Strain of muscle(s) and tendon(s) of peroneal muscle group at lower leg level, right leg, initial encounter ?S86.311A - Strain of muscle(s) and tendon(s) of peroneal muscle group at lower leg level, right leg, initial encounter (ICD-10) Pain in right ankle and joints of right foot ?M25.571 - Pain in right ankle and joints of right foot (ICD-10) Primary osteoarthritis, right ankle and foot ?M19.071 - Primary osteoarthritis, right ankle and foot (ICD-10) Overactive bladder ?N32.81 - Overactive bladder (ICD-10) Insomnia ?G47.00 - Insomnia, unspecified (ICD-10) Bipolar disorder ?F31.9 - Bipolar disorder, unspecified (ICD-10) Gastroparesis ?K31.84 - Gastroparesis (ICD-10) Panic attacks ?F41.0 - Panic disorder [episodic paroxysmal anxiety] (ICD-10) OCD (obsessive compulsive disorder) ?F42.9 - Obsessive-compulsive disorder, unspecified (ICD-10) COVID-19 ?U07.1 - COVID-19 (ICD-10) Migraine ?G43.909 - Migraine, unspecified, not intractable, without status migrainosus (ICD-10) Gastritis ?K29.70 - Gastritis, unspecified, without bleeding (ICD-10) GERD (gastroesophageal reflux disease) ?K21.9 - Gastro-esophageal reflux disease without esophagitis (ICD-10) Peroneal tendinitis ?M76.70 - Peroneal tendinitis, unspecified leg (ICD-10) Posterior tibial tendon dysfunction ?M76.829 - Posterior tibial tendinitis, unspecified leg (ICD-10) Painful orthopaedic hardware ?T84.84XA - Pain due to internal orthopedic prosthetic devices, implants and grafts, initial encounter (ICD-10) Post op infection ?T81.40XA - Infection following a procedure, unspecified, initial encounter (ICD-10) Restless leg syndrome ?G25.81 - Restless legs syndrome (ICD-10) Tibialis anterior tendon tear, traumatic ?S86.219A - Strain of muscle(s) and tendon(s) of anterior muscle group at lower leg level, unspecified leg, initial encounter (ICD-10) Osteoarthritis ?M19.90 - Unspecified osteoarthritis, unspecified site (ICD-10) Back pain ?M54.9 - Dorsalgia, unspecified (ICD-10) Sleep disorder ?G47.9 - Sleep disorder, unspecified (ICD-10) PTSD (post-traumatic stress disorder) ?F43.10 - Post-traumatic stress disorder, unspecified (ICD-10) Depression ?F32.A - Depression, unspecified (ICD-10) Anxiety ?F41.9 - Anxiety disorder, unspecified (ICD-10) Sleep apnea ?G47.30 - Sleep apnea, unspecified (ICD-10) Asthma ?J45.909 - Unspecified asthma, uncomplicated (ICD-10) Constipation ?K59.00 - Constipation, unspecified (ICD-10) High cholesterol ?E78.00 - Pure hypercholesterolemia, unspecified (ICD-10) Hypertension ?I10 - Essential (primary) hypertension (ICD-10) Female rectocele with enterocele ?N81.6 - Rectocele (ICD-10) ?K46.9 - Unspecified abdominal hernia without obstruction or gangrene (ICD-10) 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 - Other specified functional intestinal disorders (ICD-10) Surgical History S/P foot surgery ?Z98.890 - Other specified postprocedural states (ICD-10) H/O cervical spine surgery ?Z98.890 - Other specified postprocedural states (ICD-10) S/P placement of nerve stimulator (01/02/24) ?Z96.82 - Presence of neurostimulator (ICD-10) S/P placement of nerve stimulator ?Z96.82 - Presence of neurostimulator (ICD-10) History of ankle surgery (11/13/23) ?Z98.890 - Other specified postprocedural states (ICD-10) H/O tooth extraction ?K08.409 - Partial loss of teeth, unspecified cause, unspecified class (ICD-10) H/O foot surgery (05/12/23) ?Z98.890 - Other specified postprocedural states (ICD-10) History of appendectomy (1987) ?Z90.49 - Acquired absence of other specified parts of digestive tract (ICD-10) History of colonoscopy ?Z98.890 - Other specified postprocedural states (ICD-10) History of colectomy (03/2022) ?Z90.49 - Acquired absence of other specified parts of digestive tract (ICD-10) History of tonsillectomy and adenoidectomy ?Z90.89 - Acquired absence of other organs (ICD-10) History of hysterectomy (2014) ?Z90.710 - Acquired absence of both cervix and uterus (ICD-10) History of arthroplasty of right ankle ?Z98.890 - Other specified postprocedural states (ICD-10) History of repair of rotator cuff ?Z98.890 - Other specified postprocedural states (ICD-10) S/P ankle ligament repair (2020) ?Z98.890 - Other specified postprocedural states (ICD-10) Family History Other Family history of Alzheimer's disease Family history of coronary artery disease Family history of heart disease Family history of hypertension Social History Within the past year, how often did you have a drink containing alcohol: never Score interpretation: A score less than 3 is consistent with normal alcohol consumption. 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 100 mcg-umeclid 1 inh inhalation Q24H 11/03/23 04/14/25 History 62.5 mcg-vilant 25 mcg inhalat.powder (Trelegy Ellipta) aripiprazole 300 mg suspension, 300 mg IM Q28D 05/17/24 04/14/25 History extended rel. intramuscular syringe (Lolis Rush) atenolol 50 mg tablet 50 mg PO Q24H 05/17/24 04/14/25 History losartan 25 mg tablet 25 mg PO DAILY 05/17/24 04/14/25 History omeprazole 40 mg capsule,delayed 40 mg PO DAILY 05/17/24 04/14/25 History release daridorexant 50 mg tablet (Quviviq) mg PO .hs 08/01/24 History galcanezumab-gnlm 120 mg/mL mg subcut 12/26/24 History subcutaneous pen injector (Emgality Pen) lisdexamfetamine 60 mg capsule 60 mg PO DAILY 12/26/24 04/14/25 History (Vyvanse) naltrexone 1.5 mg capsule mg PO 12/26/24 History Allergies Allergy/AdvReac Type Severity Reaction Status Date / Time risperidone (From Risperdal) AdvReac Mild breast Verified 04/14/25 07:52 nipples leak Exam Constitutional Documenting provider has reviewed patient's vital signs: yes Common normals: no apparent distress, oriented x3, healthy appearing, alert and well nourished General appearance: cooperative HENMT Common normals: normocephalic, hearing grossly normal bilaterally and moist oral mucous membranes Head and scalp: normocephalic Eye Common normals: PERRL Pupil: PERRL Neck & C-Spine Common normals: full ROM General: normal visual inspection Chest Common normals: inspection of chest normal Respiratory Common normals: normal respiratory effort, no retractions and no use of accessory muscles Back & Pelvis Thoracic spine/upper back: ROM limited, pain with ROM and thoracic spinal tenderness Lumbar spine/lower back: lumbar ROM normal, pain with ROM and lumbar spinal tenderness; no paraspinal muscle tenderness Sacroiliac joints: SI joint(s) abnormal Other: right > left positive arcelia(patricks), gaenslens, thigh thrust, compression test positive facet loading and tenderness L4-S1 sensation intact BLE strength 5/5 in BLE thoracic tenderness noted to right T7-12 greater on the left than right. notable sensitivity and hyperalgesia following T7-10 dermatomal pattern to the left>right Neuro Common normals: oriented x3 Sensorium/orientation: alert Motor exam: strength 5/5 throughout and no movement abnormalities noted Psych Common normals: mental status grossly normal, thought process normal, cooperative, affect normal, speech normal and activity/motor behavior normal Speech: normal speech Thought process: normal thought process Results Additional Findings Additional findings: If on a controlled substance or opioids, I have checked an [place] report on this patient and there are no aberrancies noted in the prescribing history.??If on a controlled substance or opioid a drug screen was completed and reviewed within the last year, and if there has not been a drug screen completed we ordered one today to monitor higher risk, state monitored pain medication use. As part of providing excellent, safe, comprehensive care, the following was completed at our patient's visit: 1. A medication reconciliation and review to ensure accurate knowledge of current/active medications, including asking our patients to inform us about any khvx-cot-cynftuo medications or herbal remedies/nutritional supplements/alternative remedies. 2. A review to specifically ensure our patients have had annual screening for screening for depression, screening for tobacco use, and screening for unhealthy alcohol use. For concerning screenings had a discussion with the patient, provided patient education, and recommended follow-up with primary care provider when appropriate. If patient noted with a risk of falling, they received education on strength, gait, and balance training to prevent future risk of falling. Portions of this note may have been carried over from the previous visit and updated as appropriate. Please note this office utilizes paper charting in addition to the electronic medical record. A list of current medications, vitals, and PMH is available there as the clinical staff outside of myself do not have access to [employer] charting during the clinic day operations. As part of providing quality comprehensive care the current medications, vitals, and PMH were reviewed in the paper chart. Assessment and Plan Assessment and Plan (1) Lumbar spondylosis: Assessment and Plan: 07/22/24 bilateral L4-5 L5-S1 facet RFA >50% improvement for at least 6 months The patient has had over 3 months of moderate to severe low back pain with functional impairment and inadequate response to conservative care including NSAIDS (unless there are contraindication such as concurrent blood thinners), multiple oral or topical pain medications, and home exercise program/physical therapy.? Patient has completed >6 weeks of guided home exercise program and/or formal physical therapy program without relief of their symptoms.? The Oswestry Disability Index was completed, and the patient scored a 30%.? The patient noted the following:?? moderate to severe low back pain with adls, standing, walking, sitting, sleeping, social life, travel We discussed the risks and benefits of the procedure with the patient, and we are NOT planning on using sedation as outlined in the guidelines from Medicare unless there is a documented reason that sedation would be strongly recommended.?? ?The procedure will be completed with fluoroscopic guidance.? (2) Intercostal neuralgia: Assessment and Plan: 04/14/25 left T8/9 T9/10 intercostal RFA >80% improvement ongoing (3) Myofascial pain: (4) Sacroiliitis: Plan pending right T8/9 T9/10 intercostal RFA under fluoroscopy with 10mg po valium 30-60mins prior to procedure for anxiolysis repeat bilateral L4-5 L5-S1 facet RFA under fluoroscopy with 10mg po valium 30-60 mins prior to procedure for anxioylsis, prior bilateral L4-5 L5-S1 facet RFA provided at least 50% improvement in pain and functional ability greater than 6 months but pt notes worsening axial low back pain restart baclofen 5-10mg tid prn pain/spasms continue meloxicam 15mg daily PRN pain, take with food. denies bleeding/GERD. risks vs benefits reviewed continue HEP as tolerated f/u 1 month after RFAs
== END 2025-04-30 07:38 | disposition home or self-care (01) ==
LOC: PM 07:38
PROVIDERS: PCP Family Medicine; Visit Provider Nurse Practitioner
DX: M47.816 Spondylosis without myelopathy or radiculopathy, lumbar region (principal); G58.0 Intercostal neuropathy; M79.18 Myalgia, other site; M46.1 Sacroiliitis, not elsewhere classified
CPT/HCPCS: G0463

== ENCOUNTER 2025-05-05 06:53 | Day surgery (SDC) | payer OTHER, MEDICARE, SELFPAY ==
--- OUTSIDE RECORDS SUMMARY | 2025-05-05 07:01 | XMS_ITS | CCD ---
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 Primary Care Provider Gwendolyn Stroud Unavailable Maximus OROSCO, Gwendolyn Unavailable Beto Snyder Unavailable Tita Daugherty Unavailable Erica Kingston Unavailable Eliceo Gómez Unavailable Unavailable Unavailable Allison Arita Unavailable Eliceo Gómez Jr. Primary Care Provider Maximus OROSCO Gwendolyn Unavailable [phone] Eliceo Gómez Unavailable DO Shannon Gómez Primary Care Provider MD Beto Snyder Attending Provider [phone] Eliceo Gómez Jr. Primary Care Provider Maximus OROSCO Gwendolyn Unavailable Beto Cartagena Unavailable MD Beto Cartagena Attending Provider [phone] WINSTON HANNAH Attending Unavailable WINSTON HANNAH Referring Unavailable ELICEO GÓMEZ JR Primary Care Unavail able ISRA MASTERS Attending Unavailable ISRA MASTERS Referring Unavailable ELICEO GÓMEZ JR Primary Care Unavail able DO Shannon Gómez Primary Care Provider [phone] LORRAINE Duron Attending Provider DR FELISHA SKELTON Consulting Unavailable KAFTAN, DR Isatu LUGO Primary Care Unavailable HAY ., DR BAEZA Admitting Unavailable HAY ., DR BAEZA Attending Unavailable SALMA AMEZQUITA Consulting Unavailable HIGHLANDER, SADE Keys Consulting Unavailable HIGHLANDER, SADE Keys Attending Unavailable HIGHLANDER, SADE D Admitting Unavailable KAFTAN, DR Isatu LUGO [...] Consulting Unavailable MAKENNA TRIPLETT Unavailable DALIA, DR Isatu LUGO Primary Care Unavailable ELIAS ., DR ELDER Rios Admitting Unavailable ELIAS ., DR ELDER Rios Attending Unavailable ELIAS ., DR ELDER Rios Consulting Unavailable [place], DR NICKI Gale Consulting Unavailable SADE FELIX [...] Unavailable DO Shannon Gómez Primary Care Provider [phone] DO Tez Vazquez Attending Provider [phone] RAJIV WILKINSON Attending Unavailable ELICEO GÓMEZ JR Primary Care Unavailable CULLEN DAWKINS Referring Unavailable ELICEO GÓMEZ JR Primary Care Unavailable CULLEN DAWKINS Attending Unavailable CULLEN DAWKINS Referring Unavailable ELICEO GÓMEZ JR Primary Care Unavailable CULLEN DAWKINS Attending Unavailable ELICEO GÓMEZ JR Referring Unavailable KAJEROMEAN ELICEO JENKINS Asiya Primary Care Unavailable CULLEN DAWKINS Admitting Unavailable CULLEN DAWKINS Attending Unavailable CULLEN DAWKINS Referring Unavailable ELICEO GÓMEZ JR Primary Care Unavailable WANG, PAM Referring Unavailable KAJEROMEAN , ELICEO PARISH Primary Care Unavail able Dalia Morales, Eliceo LOAIZA [facility] DALIA JENKINSELICEO Primary Care Unavail able WANG, PAM Admitting Unavailable WANG, PAM Attending Unavailable WANG, PAM Referring Unavailable KAFTAN JR, ELICEO LUGO Primary Care Unavail able JAIRON LAI Attending Unavailable WANG, PAM Attending Unavailable KAFTAN JR, ELICEO LUGO Primary Care Unavail able KAFTAN JR, ELICEO LUGO Primary Care Unavail able NELSY CHÁVEZ Attending Unavailable FLOWER LOPEZ Attending Unavailable WENDYAN JR, ELICEO PARISH Primary Care Unavail able KAJEROMEAN JR, ELICEO LUGO Primary Care Unavail able KAJEROMEAN , ELICEO LUGO Primary Care Unavail able KAJEROMEAN , ELICEO LUGO Primary Care Unavail able WANG, PAM Attending Unavailable KAJEROMEAN , ELICEO LUGO Primary Care Unavail able WANG, PAM Attending Unavailable WANG, PAM Referring Unavailable KAJEROMEAN , ELICEO LUGO Primary Care Unavail able DORIS ARIAS Attending Unavailable Shannon Gómez DO Primary Care Provider DO Shannon Gómez Primary Care Provider FADUMO Felix Attending Provider [phone] Unavailable Primary Care Provider UnavailEliceo Santos DO Primary Care Provider Eliceo Gómez DO Unavailable [phone] Dipti Acevedo DO Unavailable Monica Linares Attending Provider [phone] Shannon Gómez DO Primary Care Provider Anibal Medrano DO Attending Provider [phone] Dipti Acevedo DO Attending Provider Brisa BENSON, Na Attending Provider Dalia Morales DO, George R Primary Care Provider HEALTH, 360 Referring Unavailable ELICEO GÓMEZ JR Primary Care Unavailable Everett Valdez MD Attending Provider [phone] Shannon GÓMEZ Primary Care Unavailable MERISSA DELAROSA Referring Unavailable SELF, SELF Referring Unavailable KAFTAN, GReno LUGO Primary Care Unavailable KAFTAN, GReno LUGO Primary Care Unavailable RADHA CARDENAS Attending Unavailable DALIA, GReno LUGO Referring Unavailable KAFTAN, GReno LUGO Primary Care Unavailable MERISSA DELAROSA Attending Unavailable WENDYAN, GReno LUGO Referring Unavailable KAFTAN, GReno LUGO Primary Care Unavailable KAFTAN, GReno LUGO Referring Unavailable LI, NA Referring Unavailable KAFTAN, GReno LUGO Primary Care Unavailable MERISSA DELAROSA Attending Unavailable LI, NA Referring Unavailable KAFTAN, GReno LUGO Primary Care Unavailable RADHA CARDENAS Attending Unavailable RADHA CARDENAS Attending Unavailable DALIA, Shannon LUGO Primary Care Unavailable WENDYAN, GReno LUGO Referring Unavailable KAFTAN, GReno LUGO Referring Unavailable RADHA CARDENAS Attending Unavailable DALIA, GReno LUGO Primary Care Unavailable LI, NA Referring Unavailable KAFTAN, GReno LUGO Primary Care Unavailable MILAGROS FRANCO Attending Unavailab le Eliceo Gómez DO R Unavailable [phone] ELICEO GÓMEZ Attending Unavailable NANCY SWENSON Attending Unavailable KAFTAN, ELICEO Ellis Attending Unavailable KAFTAN, ELICEO R Referring Unavailable RON KING Attending Unavailable JES MARTINEZ Attending Unavailable SIDNEY AMEZQUITA Attending Unavailable KAFTAN, ELICEO R Referring Unavailable KAFTAN, ELICEO R Attending Unavailable KAFTAN, ELICEO R Referring Unavailable NELSY SNYDER Attending Unavailable KAFTAN, ELICEO R Attending Unavailable DIPTI ACEVEDO Attending Unavailable CARMEN CRUZ Attending Unavailable RON KING Attending Unavailable DIPTI ACEVEDO Attending Unavailable CARMEN CRUZ Attending Unavailable SIDNEY AMEZQUITA Attending Unavailable KAELICEO AHUJA Attending Unavailable KAFTAN, ELICEO R Referring Unavailable KAFTANELICEO Attending Unavailable KAELICEO AHUJA R Referring Unavailable KAFTAN, ELICEO R Referring Unavailable RON KING Attending [...] LOAIZA Primary Care Provider [place] , Anibal N Attending Provider Everett Valdez MD Attending Provider Shannon Gómez DO Primary Care Provider Grant CASINO SLOT SUPERVISOR-C, Monica Rios Attending Provider [phone] Everett Valdez Admitting Unavailable Everett Valdez Attending Unavailable Shannon Gómez Primary Care Unavailable GrantMonica espino Admitting Unavailable GrantMonica espino Attending Unavailable Shannon Gómez Primary Care Unavailable Shannon Gómez Primary Care Unavailable Dipti Acevedo Admitting Unavailable Dipti Acevedo Attending Unavailable HighlSade palomo Attending Unavailable HighlanderSade Admitting Unavailable Li, Na Attending Unavailable Shannon Gómez Primary Care Unavailable Li, Na Admitting Unavailable Shannon Gómez Primary Care Unavailable [place], Anibal N Admitting Unavailable [place], Anibal N Attending Unavailable Monica Burns Admitting Unavailable GrantMonica espino Attending Unavailable Shannon Gómez Primary Care Unavailable Shannon Gómez Primary Care Unavailable [place], Anibal N Admitting Unavailable [place], Anibal N Attending Unavailable Highlander, Sade D Attending Unavailable KaShannon ahuja Primary Care Unavailable Highlander, Peter D Admitting Unavailable Shannon Gómez Primary Care Unavailable [place], Anibal N Admitting Unavailable [place], Anibal N Attending Unavailable Everett Valdez Admitting Unavailable Everett Valdez Attending Unavailable Shannon Gómez Primary Care Unavailable Brandyn BENSON, Ace Art Attending Unavailable Brandyn BENSON, Andrius Art Attending Unavailable Brandyn BENSON, Andrius Kaelyn Attending Unavailable Brandyn BENSON, Andrius Art Attending Unavailable Gipelon BENSON, Andrius Shahlaytnellie Attending Unavailable Gieditis , Andrius Kaelyn Attending Unavailable Brandyn BENSON, Andrius Shahlaytnellie Attending Unavailable Brandyn BENSON, Andrius Shahlaytautalvin Attending Unavailable Brandyn BENSON, Andrius Vytautalvin Attending Unavailable Shannon Gómez DO Primary Care Provider Everett Valdez MD Attending Provider [phone] Salma Galeas DO Attending Provider [phone] Allergies Allergy Classification Reported Allergen(s) Allergy Type Date of Onset Reaction(s) Facility risperiDONE (1 source) risperiDONE Drug Allergy 9 [facility] (20 sources) risperiDONE; Translations: [RisperDAL TABS] Drug Allergy 0 Intolerance, Other (See Comments) [facility] (1 source) oxyCODONE Drug Allergy [facility] (1 source) risperiDONE Drug Allergy [facility] (20 sources) POISON BRENDA EXTRACT; Translations: [POISON BRENDA EXTRACT] Drug Allergy 3 Rash [facility] (20 sources) risperiDONE Drug Allergy 9 [facility] (1 source) risperiDONE Drug Allergy [facility] Repository (1 source) POISON BRENDA; Translations: [POISON BRENDA] Propensity to adverse reactions to drug (disorder) 2 [facility] Repository (1 source) risperiDONE Drug Allergy [address] [facility] Repository Medications Current Medications Medication Drug [...] on above: Take 1 tablet by yancy three times a day. acetaminophen 325 mg [...] 1 tablet by mouth every twelve hours [id number] 200 actuat albuterol 0.09 mg/actuat metered dose [...] on above: inhale 2 puffs by mo [facility] INTO THE LUNGS every 4 hours if needed ARIPiprazole 300 mg extended release prefilled syringe (20 sources) Atypical Antipsychotic Start: 09-16-2024 Start: 02-26-2024 Abilify Mainte na 300 MG [...] Daily (with dinner). 07/07/2023 Active Start: 02-18-2020 Start: 02-18-2020 take 25 mg by mouth [...] 2020 10:25am take 1 capsule by mo [facility] in the morning, then take 1 capsule by mouth at bedtime celecoxib (CeleBREX) 200 mg capsule Take 1 capsule (200 mg total) by mouth in the morning and 1 capsule (200 mg total) before bedtime. 0 Active Comment on above: take 1 capsule by mo [facility] twice a day if needed cetirizine hydrochloride [...] Start: 05-12-2023 take 1 capsule by mo ut once daily End: 01-25-2024 take 1 capsule by mouth once daily Cholecalciferol, Vitamin D3, 25 mcg (1,000 unit) cap Take 1,000 Units by mouth once daily. 0 01/25/2024 Discontinued (Course of therapy completed) Cholecalciferol, Vitamin D3, (VITAMIN D) 25 mcg (1,000 unit) cap Take 1,000 Units by mouth once daily. 0 Active Comment on above: Take 1,000 Units by mouth once daily. 168 hr cloNIDine 0.77101 mg/hr transdermal system (4 sources) Central alpha-2 [...] mg oral tablet (1 source) Start: 01-10-20 25 cyproheptadine (Periactin) 4 MG tablet Take 4 mg by mouth as needed at bedtime 01/09/2025 Active Daridorexant (8 sources) Start: 09-16-20 24 take 1 tablet by mouth once daily Start: 09-16-2024 take 1 tablet by yancy [...] as dir ected. daridorexant 50 mg tablet (9 sources) take 1 tablet by mouth once [...] ml enoxaparin sodium 100 mg/ml prefilled syringe (18 sources) Low Molecular Weight Heparin Start: 05-29-2024 [...] 42.5 g 1 11/26/2024 Active Start: 09-16-2024 Start: 09-16-2024 Estradiol 0.01 % (0.1 mg/gram) cream Active VAGINAL September 16, 2024 12:00am Start: 09-04-2024 End: 09-04-2025 take 1 tablet by mouth once daily Start: 07-29-2024 estradiol (Est race) 0.1 MG/GM [...] mg oral tablet (20 sources) Start: 09-16-2024 Start: 09-16-2024 Ferrous Sulfat e 325 mg [...] Propionate (Flon ase Allergy Relief) 50 mcg/actuation [place],Suspension Discontinued 2 SPRAY INTRANASAL Daily October 15, 2018 1:00am June 18, 2019 3:04pm Comment on above: Use 1 [place] in each nostril once daily. 30 actuat [...] Start: 12-11-2024 take 1 puff(s) by mo ut once [...] 60 each 1 10/14/2024 Active Start: 09-16-2024 Start: 09-16-2024 Fluticasone-Um eclidin-Vilanter (Trelegy Ellipta) 100-62.5-25 [...] take 1 puff(s) by inhalation once daily Wqdxkzdwiut-Fixwdoblb-Gozrtf 100-62.5-25 MCG/ACT aerosol powder Indications: Asthma Inhale 1 puff Daily 07/11/2024 12/08/2024 Active Start: 07-20-2023 Trelegy Ellipt a 100-62.5-25 MCG/ACT Aerosol Powder, breath activated inhaler Inhalation for 30 Days 07/20/2023 Active Start: 07-20-2023 take 1 puff(s) by mo ut once daily TRELEGY ELLIPTA 100-62.5-25 MCG/ACT AEPB Take 1 puff by mouth. Inhale once daily 0 07/20/2023 Active Start: 05-31-2022 take 1 puff(s) by in halation in the morning yvqwothspvt-pjyhktigp-dtwqmrlz (TRELEGY ELLIPTA) 100-62.5-25 mcg blister with device Indications: Asthma, unspecified asthma severity, unspecified whether complicated, unspecified whether persistent Inhale 1 puff in the morning. 60 each 5 05/31/2022 Active End: 07-11-2024 Mrgjhnrqbaf-Ngxhcjhef-Wduuat (Trelegy Ellipta) 100-62.5-25 MCG/ACT aerosol powder Inhale 07/11/2024 Discontinued take 1 puff(s) by in halation once daily Trelegy Ellipta 100-62.5-25 MCG/INH 1 puff Inhalation Once a day Not-Taking Comment on above: Inhale 1 Puff as ins tructed once daily. fluvoxaMINE maleate 50 mg oral tablet (15 sources) Serotonin Reuptake Inhibitor Start: 4 take 1 tablet by mouth once daily at bedtime 1.5 ml fremanezumab-vfrm 150 mg/ml auto-injector (20 [...] mg/ml auto-injector (20 sources) Start: 05-15-20 End: 04-21-20 inject 120 mg by subcutaneous injection every 30 days galcanezumab-gnlm (EMGALITY PEN) 120 mg/mL pen injector Indications: Other migraine without status migrainosus, not intractable INJECT 120MG SUBCUTANEOUSLY ONCE EVERY 30 DAYS 1 mL 5 04/21/2025 Active Start: 05-15-2024 End: 05-15-2024 inject 240 [...] inulin 200 mg / lactobacillus rhamnosus gg [id number] unt oral capsule (1 source) Start: End: take 1 capsule by mouth once daily lactobacillus rhamnosus (CULTURELLE) 10 billion cell -200 mg capsule Take 1 capsule by mouth once daily. 30 capsule 0 06/07/2022 07/07/2022 Active Comment on above: Take 1 capsule by [facility] once daily. iv contrast (will [...] Active Start: 02-01-2020 Toradol per 15 mg 28 Mar, 2020 60 mg L-Theanine 200 MG capsule (20 sources) take 1 capsule by mouth once daily L-Theanine 200 MG capsule Take 1 capsule by mouth Daily Active lamoTRIgine 25 mg disintegrating oral tablet (20 sources) Mood Stabilizer, Anti-epileptic Agent Start: 3 End: take 1 tablet by mouth in the [...] above: Take 1 capsule by mo [facility] every afternoon. LORazepam 1 mg oral [...] 1 tablet by mouth once daily meloxicam 15 mg oral tablet (1 source) [...] 1 tablet by yancy th once daily Start: 09-13-2017 End: 10-01-2018 take 1 tablet by mouth twice daily Methylphenidate Hcl 20 mg tablet Discontinued 1 TAB PO Twice daily September 13, 2017 1:00am October 01, 2018 10:43am 24 hr mirabegron 50 mg extended release oral tablet (20 sources) beta3-Adrenergic Agonist Start: 09-16-2024 take 1 tablet b y mouth once daily Start: 09-04-2024 End: 09-04-2025 take 1 tablet by mouth every twenty-four hours at bedtime mirabegron ER (Myrbetriq) 50 MG 24 hr tablet Indications: Urinary frequency , Urinary urgency Take 1 tablet (50 mg) by mouth at bedtime Do not crush, chew, or split. 30 tablet 11 09/04/2024 09/04/2025 Active mirtazapine 15 mg oral table t (16 sources) Start: 12-26-2024 mirtazapine (R emeron) 15 [...] tablet by mouth Daily 11/04/2024 Active nystatin [id number] unt/ml oral suspension (20 sources) Polyene Antifungal Start: 08-01-2024 End: 08-09-2024 nystatin (Mycostatin) [id number] UNIT/ML suspension Indications: Oral candidiasis Take 5 mL (500,000 Units) by mouth in the morning and 5 mL (500,000 Units) at noon and 5 mL (500,000 Units) in the evening and 5 mL (500,000 Units) before bedtime. Do all this for 8 days. 160 mL 08/01/2024 08/09/2024 Active Start: 05-03-2024 End: 07-11-2024 nystatin (Mycostatin) 208887 UNIT/ML suspension Take 5 mL by mouth [...] take 1 capsule by mouth once daily Start: 09-13-2017 End: 06-05-2023 take 1 capsule [...] Start: 08-12-2023 take 1 tablet by yancy every eight hours as needed Ondansetron (ZOFRAN-ODT) [...] bedtime. rimegepant 75 mg disintegrating oral tablet (9 sources) Start: 3 rimegepant 75 mg tablet,disintegratin [...] bedtime. 60 tablet 5 02/06/2025 Active Start: 09-19-2021 take 1 mg by [...] tablet by mouth once daily at bedtime Start: 06-19-2019 End: 09-16-2024 take 2 mg [...] the AM and 2 mg PM sennosides, half-way 8.6 mg oral tablet (6 sources) Start: 4 End: 4 take 1 tablet by mouth once daily as needed for constipation [facility] Senna 8.6 MG tablet TAKE 1 TABLET BY MOUTH DAILY NEEDED FOR CONSTIPATION FOR 7 DAYS 05/27/2024 07/11/2024 Discontinued sucralfate 1000 mg oral tablet (20 sources) Aluminum Complex Start: 3 End: take 1 tablet by mouth four times [...] sources) Orexin Receptor Antagonist Start: 4 End: 4 take 1 tablet by mouth at bedtime Belsomra 10 MG tablet Take 10 mg by mouth at bedtime 06/26/2024 07/11/2024 Discontinued traMADol hydrochloride 50 mg oral tablet (20 sources) Opioid Agonist Start: End: 4 take 1 tablet by [...] 12-19-2018 Trazodone 100 mg tablet Disc ontinued November 02, 2018 1:00am December 19, 2018 1:17pm Start: 11-02-2018 End: 12-19-2018 Trazodone 100 mg tablet Disc ontinued TABLET November 02, 2018 1:00am December 19, 2018 1:17pm Start: 11-02-2018 End: 12-19-2018 Trazodone Discontinued TABLE T November 02, 2018 1:00am December 19, 2018 1:17pm take 1 tablet by yancy at bedtime [...] mg / caffeine 65 mg oral tablet (15 sources) Platelet Aggregation Inhibitor, Nonsteroidal Anti-inflammatory Drug, [...] 10:40am alendronic acid 70 mg oral tablet (12 sources) Bisphosphonate Start: 06-05-2023 End: 09-16-2024 take 1 tablet by mouth every week Alendronate (Fosamax) 70 mg Tablet Discontinued 70 MG PO every week June 05, 2023 12:00am September 16, 2024 4:04pm ALPRAZolam 1 mg oral tablet (15 sources) Benzodiazepine Start: 09-13-2017 End: 10-01-2018 take 1 tablet by mouth three times daily Alprazolam 1 mg tablet Discontinued 1 TAB PO Three times daily September 13, 2017 1:00am October 01, 2018 10:40am amitriptyline hydrochloride 25 mg oral tablet (15 sources) Tricyclic Antidepressant Start: 02-18-2020 End: 06-05-2023 [...] (Therapy completed) brexpiprazole 3 mg oral tablet (15 sources) Atypical Antipsychotic Start: 02-18-2020 End: 06-05-2023 [...] 500 mg cephalexin 500 mg oral capsule (15 sources) Cephalosporin Antibacterial Start: 09-20-20 17 End: [...] capsule (20 sources) Proton Pump Inhibitor Start: 10-05-20 End: 09-16-20 take 1 capsule by mouth once daily Dexlansoprazole (Dexilant) 60 mg Capsule,Biphase Delayed Releas Discontinued 60 MG PO Daily June 05, 2023 12:00am September 16, 2024 4:04pm Comment on above: take 1 capsule by mo ut every morning BEFORE BREAKFAST take 1 capsule by mo uth before breakfast Dexlansoprazole (Dexilant) 60 mg Capsule,Biphase Delayed Releas (11 sources) Start: 06-05-20 End: 09-16-20 24 take 1 capsule by mouth once daily [...] completed) docusate sodium 50 mg / sennosides, half-way 8.6 mg oral tablet (15 sources) Start: 09-20-2017 End: 10-01-2018 take 2 [...] hydrochloride 240 mg extended release oral tablet (15 sources) alpha-Adrenergic Agonist, Histamine-1 Receptor Antagonist Start: 12-19-2018 End: 06-18-2019 take 1 tablet by mouth once daily in the morning, then take 1 tablet by mouth every twenty-four hours Fexofenadine-Pse udoephedrine (Embre-D 24 Hour) 180-240 mg Tablet Extended Release 24 Hr Discontinued 1 TAB PO Every morning December 19, 2018 1:00am June 18, 2019 3:04pm fluconazole 150 mg oral tablet (15 sources) Azole Antifungal Start: 02-18-2020 End: 06-05-2023 [...] needed for pain. Take 1 tablet by [facility] every 6 hours as needed for pain for up to 7 days. lactobacillus rhamnosus gg [id number] unt oral capsule (20 sources) Start: End: [...] Start: 12-27-2021 take 1 capsule by [facility] once daily lactobacillus rhamnosus (CULTURELLE) 10 billion cell capsule Take 1 capsule by mouth once daily. 30 capsule 0 12/27/2021 Active Comment on above: Take 1 capsule by [facility] once daily. linaclotide 0.145 mg oral capsule (15 sources) Guanylate Cyclase-C Agonist Start: 8 End: 9 take 1 capsule by mouth once daily [...] mL lurasidone hydrochloride 40 mg oral tablet (15 sources) Atypical Antipsychotic Start: 06-18-2019 End: 02-18-2020 [...] Comment on above: Take 1 tablet by [facility] twice daily. for vaginosis. Do not drink alcohol while taking this medication Take 1 tablet by yancy three times daily. Take 1 tablet at 6pm, 7pm, and 11pm, the evening prior to surgery. montelukast 10 mg oral tablet (15 sources) Leukotriene Receptor Antagonist Start: End: take [...] Comment on above: Take 2 tablets by [facility] as directed. Take 2 tablet at 6pm, 7pm, and 11pm the evening prior to surgery. nitrofurantoin, macrocrystals 25 mg / nitrofurantoin, monohydrate 75 mg oral capsule (18 sources) Nitrofuran Antibacterial Start: End: take 1 capsule by mouth twice daily at mealtime Nitrofurantoin Monohyd/M-Cryst (Macrobid) 100 mg capsule Discontinued 100 MG PO Twice daily 10 February 18, 2020 12:00am June 05, 2023 10:13am must administer with a meal/food Comment on above: Take 1 capsule by [facility] twice daily. 24 hr oxybutynin chloride 10 mg extended release oral tablet (15 sources) Cholinergic Muscarinic Antagonist Start: End: take 1 tablet by mouth once daily Oxybutynin Chloride (Ditropan Xl) 10 mg Tablet Extended Release 24hr Discontinued 10 MG PO Daily October 01, 2018 1:00am June 19, 2019 1:23pm phenazopyridine hydrochloride 200 mg oral tablet (15 sources) Start: 020 End: take 1 tablet by mouth every eight hours Phenazopyridine (Pyridium) 200 mg tablet Discontinued 200 MG PO Q8H 6 2 February 18, 2020 12:00am June 05, 2023 10:13am polyethylene glycol 3350 74977 mg powder for oral solution (3 sources) Osmotic Laxative Start: 022 End: polyethylene glycol 3350 (MIRALAX) 17 gram/dose [...] oral capsule (20 sources) Start: 024 End: 025 take 1 capsule by mouth in the [...] Comment on above: [facility] psyllium 520 mg oral capsule (3 sources) Start: 12-27-2021 End: 02-08-2022 psyllium Husk (METAMUCIL) 0.52 gram capsule Take 1 capsule by mouth as directed. As needed for constipation 0 12/27/2021 02/08/2022 Discontinued (Course of therapy completed) Comment on above: Take 1 capsule by mo [facility] as directed. As needed for constipation QUEtiapine 200 mg oral tablet (15 sources) Atypical Antipsychotic Start: 10-01-2018 End: 12-19-2018 [...] above: Take 2 tablets by mo [facility] three times daily as needed. simethicone in [...] Episodic Conditions associated with dizziness or vertigo (18 sources) Postural dizziness; Translations: [Dizziness and giddiness] [...] Chronic Esophageal disorders (2 sources) Esophagitis; Translations: [[place] grade D esophagitis] 04-12-2024 Episodic Essential hypertension [...] 1 08-04-2021 Chronic Miscellaneous mental health disorders (12 sources) Avoidant restrictive food intake disorder; Translations: [...] 2 Chronic Other aftercare (1 source) Other care home (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; Translations: [OTH SHELTER CURRENT DRUG THERAPY] Onset: 3 Episodic Other circulatory disease (2 sources) Spider nevus; Translations: [Nevus, non-neoplastic] 01-14-2025 Episodic Other connective tissue disease (5 sources) [...] Onset: 5 Chronic Other nervous system disorders (2 sources) Polyneuropathy; Translations: [Polyneuropathy, unspecified] 04-30-2025 Chronic Other nervous system disorders (5 sources) [...] 1 10-24-2023 Chronic Other upper respiratory infections (15 sources) Upper respiratory infection; Translations: [Acute upper [...] back pain; Translations: [Cervicalgia] Onset: 1 Resolved: 3 Episodic Unclassified (1 source) PERSONAL HISTORY OF [...] specified] Onset: 2 02-18-2020 Episodic Viral infection (15 sources) Disease caused by 2019-nCoV; Translations: [COVID-19] [...] lability] Onset: 04-04-2023 04-04-2023 Episodic Mood disorders (10 sources) Mood disorders Onset: 10-23-2023 Resolved: 01-20-2025 [...] WALL] Onset: 04-19-2022 Episodic Sprains and strains (2 sources) Strain [...] By: Eitan Weber on 02-25-[address] [facility] [place] [address] [place] [address] MRI Report Signed Patient: Mary Leal MR#: [id number] : 1970 Acct:[id number] Age/Sex: 54 / F ADM Date: 5 Loc: [facility] Room: Type: [facility] Attending Dr: Monica IBARRA Copies to: FRED Schafer~ Ordering Provider: FRED Schafer Date of Service: 02/25/25 MR/MR thoracic spine wo con: THORACIC RADICULOPATHY ([id number]) XR/XR pre/post mri xray: THOARCIC RADICULOPATHY MRI [...] Eitan Weber M.D.02/25/2025 10:14 AM Dictation Location: [place] [address] Transcribed By: [facility] 02/25/25 1014 Dictated By: Eitan Weber MD 02/25/25 1008 Signed By: 02/25/[address] [facility] Work Phone: XR pre/post mri xrayon 02-25 XR pre/post mri xray [facility] [place] [address] [place] [address] MRI Report Signed Patient: Mary Leal MR#: [id number] : 1970 Acct:[id number] Age/Sex: 54 / F ADM Date: 02/25/25 Loc: [facility] Room: Type: [facility] Attending Dr: Monica IBARRA Copies to: FRED Schafer Ordering Provider: FRED Schafer Date of Service: 02/25/25 MR/MR thoracic spine wo con: THORACIC RADICULOPATHY ([id number]) XR/XR pre/post mri xray: THOARCIC RADICULOPATHY MRI [...] Eitan Weber M.D.02/25/2025 10:14 AM Dictation Location: [place] [address] Transcribed By: [facility] 02/25/25 1014 Dictated By: Eitan Weber MD 02/25/25 1008 Signed By: 02/25/25 1014 Normal [facility] Alanine aminotransferase [En zymatic activity/volume] in Serum or PlasmaOrdered By: Everett Valdez on 02-17-2025 ALT [Catalytic activity/Vol] Alanine aminotransferase [Enzymatic activity/volume] in Serum or Plasma 7-[address] [facility] Albumin [Mass/volume] in Ser um or Plasma by Bromocresol green (BCG) dye binding methoOrdered By: Everett Valdez on 02-17-2025 Albumin BCG dye [Mass/Vol] Albumin [Mass/volume] in Serum or Plasma by Bromocresol green (BCG) dye binding metho 3.5-5.[address] [facility] Albumin BCG dye [Mass/Vol] 4.2 g/dL 3.5-5.[address] [facility] Alkaline phosphatase [Enzyma tic activity/volume] in Serum or PlasmaOrdered By: Everett Valdez on 02-17-2025 ALP [Catalytic activity/Vol] Alkaline phosphatase [Enzymatic activity/volume] in Serum or Plasma 34-[address] [facility] Aspartate aminotransferase [ Enzymatic activity/volume] in Serum or PlasmaOrdered By: Everett Valdez on 02-17-2025 AST [Catalytic activity/Vol] Aspartate aminotransferase [Enzymatic activity/volume] in Serum or Plasma 13-[address] [facility] Basophils Auto (Bld) [#/Vol] Ordered By: Everett Valdez on 02-17-2025 Basophils (Bld) [#/Vol] Automated basophil count 0.0-0.[address] [facility] Basophils/100 WBC Auto (Bld) Ordered By: Everett Valdez on 02-17-2025 Basophils/100 WBC (Bld) Automated basophil % . [facility] Bilirubin.total [Mass/volume ] in Serum or PlasmaOrdered By: Everett Valdez on 02-17-2025 Bilirubin [Mass/Vol] Bilirubin.total [Mass/volume] in Serum or Plasma 0.3-1.[address] [facility] C reactive protein [Mass/vol ume] in Serum or PlasmaOrdered By: Everett Valdez on 02-17-2025 CRP [Mass/Vol] C reactive protein [Mass/volume] in Serum or Plasma 0.0-0.[address] [facility] CRP [Mass/Vol] < 0.5 mg/dL 0.0-0.[address] [facility] C-Reactive Proteinon 025 CRP [Mass/Vol] mg/L Normal 0.0-0.5 [facility] Comment on above: Result Comment: PERF ORMED BY: [place] [address] PATHOLOGIST TECHNICAL TRAINER PAZ RUTHERFORD M.D. Performed By: #### B MP #### [address] Calcium [Mass/volume] in Ser um or PlasmaOrdered By: Everett Valdez on 02-17-2025 Calcium [Mass/Vol] Calcium [Mass/volume ] in Serum or Plasma 8.6-10.[address] [facility] Carbon dioxide, total [Moles /volume] in Serum or PlasmaOrdered By: Everett Valdez on 02-17-2025 CO2 [Moles/Vol] Carbon dioxide, tota l [Moles/volume] in Serum or Plasma 21.0-31.[address] [facility] Chloride [Moles/volume] in S jay or PlasmaOrdered By: Everett Valdez on 02-17-2025 Chloride [Moles/Vol] Chloride [Moles/volume] in Serum or Plasma 98-[address] [facility] Complete Blood Count Auto Di ffOrdered By: Everett Valdez on 02-17-2025 Basophils (Bld) [#/Vol] 0.0 10*3/uL 0.0-0.[address] [facility] Comment on above: Performed By: #### B MP #### [address] Basophils/100 WBC (Bld) 0.7 % . [facility] Comment on above: Performed By: #### B MP #### [address] Eosinophils (Bld) [#/Vol] 0.1 10*3/uL 0.0-0.[address] [facility] Comment on above: Performed By: #### B MP #### [address] Eosinophils/100 WBC (Bld) 1.9 % . [facility] Comment on above: Performed By: #### B MP #### [address] Erythrocyte distribution width (RBC) [Ratio] 13.6 % 11.9-15.[address] [facility] Comment on above: Performed By: #### B MP #### [address] Hematocrit (Bld) [Volume fraction] 41.0 % 34.0-46.[address] [facility] Comment on above: Performed By: #### B MP #### [address] Hemoglobin (Bld) [Mass/Vol] 14.0 g/dL 11.8-15.[address] [facility] Comment on above: Performed By: #### B MP #### [address] Lymphocytes (Bld) [#/Vol] 1.4 10*3/uL 1.00-4.[address] [facility] Comment on above: Performed By: #### B MP #### [address] Lymphocytes/100 WBC (Bld) 29.2 % . [facility] Comment on above: Performed By: #### B MP #### [address] MCH (RBC) [Entitic mass] 28.3 pg 24.7-34.[address] [facility] Comment on above: Performed By: #### B MP #### [facility] [address] MCV (RBC) [Entitic vol] 83.3 fL 80-[address] [facility] Comment on above: Performed By: #### B MP #### [facility] [address] [place] [address] [place] Monocytes (Bld) [#/Vol] 0.2 10*3/uL 0.0-0.[address] [facility] Comment on above: Performed By: #### B MP #### [facility] [address] [place] [address] [place] Monocytes/100 WBC (Bld) 5.0 % . [facility] Comment on above: Performed By: #### B MP #### [facility] [address] Neutrophils (Bld) [#/Vol] 3.1 10*3/uL 1.8-7.[address] [facility] Comment on above: Performed By: #### B MP #### [address] Neutrophils/100 WBC (Bld) 63.2 % . [facility] Comment on above: Performed By: #### B MP #### [address] Platelet mean volume (Bld) [Entitic vol] 7.6 fL 6.3-10.[address] [facility] Comment on above: Performed By: #### B MP #### [address] Platelets (Bld) [#/Vol] 312 10*3/uL 150-[address] [facility] Comment on above: Performed By: #### B MP #### [address] RBC (Bld) [#/Vol] 4.93 10*6/uL 3.60-5.00 [facility] Comment on above: Performed By: #### B MP #### [address] WBC (Bld) [#/Vol] 4.9 10*3/uL 3.8-11.6 [facility] Comment on above: Performed By: #### B MP #### [address] Complete Blood Count Auto Di ffon 02-17-2025 Mean Corpuscular HGB Conc 34.0 g/dL Normal 32.0-35.0 [facility] Comment on above: Performed By: #### B MP #### [address] NRBC% 0.1 /100{WBC} Normal 0-0.5 [facility] Comment on above: Performed By: #### B MP #### [address] Comprehensive Metabolic Pane boyd 02-17-2025 Albumin [Mass/Vol] 4.2 g/dL Normal 3.5-5.7 [facility] Comment on above: Performed By: #### B MP #### [address] GFR/1.73 sq M.predicted MDRD (S/P/Bld) [Vol rate/Area] mL/min/{1.73_m2} Normal [facility] Comment on above: Performed By: #### B MP #### [address] Comprehensive Metabolic Pane lOrdered By: Everett Valdez on 02-17-2025 Albumin/Globulin [Mass ratio] 2.0 {ratio} [facility] Comment on above: Performed By: #### B MP #### [address] ALP [Catalytic activity/Vol] 96 U/L 34-[address] [facility] Comment on above: Performed By: #### B MP #### [address] ALT [Catalytic activity/Vol] 38 U/L 7-[address] [facility] Comment on above: Performed By: #### B MP #### [facility] [address] [place] [address] Anion gap [Moles/Vol] 9.4 mmol/L 6.0-15.0 [facility] Comment on above: Performed By: #### B MP #### [facility] [address] [place] [address] AST [Catalytic activity/Vol] 34 U/L 13-[address] [facility] Comment on above: Performed By: #### B MP #### [facility] [address] [place] [address] Bilirubin [Mass/Vol] 0.3 mg/dL 0.3-1.0 [facility] Comment on above: Performed By: #### B MP #### [facility] [address] [place] [address] Calcium [Mass/Vol] 8.9 mg/dL 8.6-10.3 [facility] Comment on above: Performed By: #### B MP #### [facility] [address] [place] [address] Chloride [Moles/Vol] 104 mmol/L 98-107 [facility] Comment on above: Performed By: #### B MP #### [address] CO2 [Moles/Vol] 30.2 mmol/L 21.0-31.0 [facility] Comment on above: Performed By: #### B MP #### [address] Creatinine [Mass/Vol] 0.61 mg/dL 0.60-1.20 [facility] Comment on above: Performed By: #### B MP #### [address] Globulin (S) [Mass/Vol] 2.1 g/dL [facility] Comment on above: Performed By: #### B MP #### [address] Glucose [Mass/Vol] 94 mg/dL 70-100 [facility] Comment on above: Result Comment: Vivian om Glucose Reference Range is dependent on time and content of last meal. Glucose of more than 200 mg/dL in a nonstressed, ambulatory subject supports the diagnosis of Diabetes Mellitus. ADA recommended reference range Performed By: #### B MP #### [address] ADA recommended refe rence rangeRandom Glucose Reference Range is dependent on time and content of last meal. Glucose of more than 200 mg/dL in a nonstressed, ambulatory subject supports the diagnosis of Diabetes Mellitus. Potassium [Moles/Vol] 4.6 mmol/L 3.5-5.1 [facility] Comment on above: Performed By: #### B MP #### [address] Protein [Mass/Vol] 6.3 g/dL Low 6.4-8.9 [facility] Comment on above: Performed By: #### B MP #### [address] Sodium [Moles/Vol] 139 mmol/L 136-145 [facility] Comment on above: Performed By: #### B MP #### [address] Urea nitrogen [Mass/Vol] 19 mg/dL 7-[address] [facility] Comment on above: Performed By: #### B MP #### [address] Creatine KinaseOrdered By: Dirk Valdez on 02-17-2025 CK [Catalytic activity/Vol] 539 U/L High 30-[address] [facility] Comment on above: Result Comment: PERF ORMED BY: [place] [address] PATHOLOGIST TECHNICAL TRAINER PAZ RUTHERFORD M.D. Performed By: #### B MP #### [place] [address] [place] Creatine kinase [Enzymatic a ctivity/volume] in Serum or PlasmaOrdered By: Everett Valdez on 02-17-2025 CK [Catalytic activity/Vol] Creatine kinase [Enzymatic activity/volume] in Serum or Plasma High 30-[address] [facility] Creatinine [Mass/volume] in Serum or PlasmaOrdered By: Everett Valdez on 02-17-2025 Creatinine [Mass/Vol] Creatinine [Mass/volume] in Serum or Plasma 0.60-1.[address] [facility] Eosinophils Auto (Bld) [#/Vo l]Ordered By: Everett Valdez on 02-17-2025 Eosinophils (Bld) [#/Vol] Automated eosinophil count 0.0-0.[address] [facility] Eosinophils/100 WBC Auto (Bl d)Ordered By: Everett Valdez on 02-17-2025 Eosinophils/100 WBC (Bld) Automated eosinophil % . [facility] Erythrocyte Sedimentation Ra lian 02-17-2025 ESR (Bld) [Velocity] 4 mm/h Normal 0-29 [facility] Comment on above: Result Comment: PERF ORMED BY: [place] [address] PATHOLOGIST TECHNICAL TRAINER PAZ RUTHERFORD M.D. Performed By: #### B #### [address] Erythrocyte distribution wid th Auto (RBC) [Ratio]Ordered By: Everett Valdez on 02-17-2025 Erythrocyte distribution width (RBC) [Ratio] Erythrocyte distribution width [Ratio] by Automated count 11.9-15.[address] [facility] Erythrocyte sedimentation ra te by Photometric methodOrdered By: Everett Valdez on 02-17-2025 ESR Photometric method (Bld) [Velocity] Erythrocyte sedimentation rate by Photometric method 0-[address] [facility] ESR Photometric method (Bld) [Velocity] 4 mm/hr 0-[address] [facility] Globulin Calc (S) [Mass/Vol] Ordered By: Everett Valdez on 02-17-2025 Globulin (S) [Mass/Vol] Serum globulin measurement by calculation (mass/volume) [facility] Glucose [Mass/volume] in Ser um or PlasmaOrdered By: Everett Valdez on 02-17-2025 Glucose [Mass/Vol] Glucose [Mass/volume ] in Serum or Plasma 70-[address] [facility] Comment on above: ADA recommended refe rence rangeRandom Glucose Reference Range is dependent on time and content of last meal. Glucose of more than 200 mg/dL in a nonstressed, ambulatory subject supports the diagnosis of Diabetes Mellitus. Hematocrit Auto (Bld) [Volum e fraction]Ordered By: Everett Valdez on 02-17-2025 Hematocrit (Bld) [Volume fraction] Hematocrit [Volume Fraction] of Blood by Automated count 34.0-46.[address] [facility] Hemoglobin [Mass/volume] in BloodOrdered By: Everett Valdez on 02-17-2025 Hemoglobin (Bld) [Mass/Vol] Hemoglobin [Mass/volume] in Blood 11.8-15.[address] [facility] LDH Lactate Dehydrogenaseon 02-17-2025 LDH Lactate Dehydrogenase 219 U/L Normal 140-271 [facility] Comment on above: Performed By: #### B MP #### [facility] [address] Lactate dehydrogenase [Enzym atic activity/volume] in Serum or Plasma by Lactate to pyOrdered By: Everett Valdez on 02-17-2025 LDH Lactate to pyruvate reaction [Catalytic activity/Vol] Lactate dehydrogenase [Enzymatic activity/volume] in Serum or Plasma by Lactate to py 140-[address] [facility] LDH Lactate to pyruvate reaction [Catalytic activity/Vol] 219 U/L 140-[address] [facility] Leukocytes [#/volume] correc herbert for nucleated erythrocytes in Blood by Automated counOrdered By: Everett Valdez on 02-17-2025 WBC corrected for nucl RBC Auto (Bld) [#/Vol] Leukocytes [#/volume] corrected for nucleated erythrocytes in Blood by Automated coun 3.8-11.[address] [facility] WBC corrected for nucl RBC Auto (Bld) [#/Vol] 4.9 10*3/uL 3.8-11.[address] [facility] Lymphocytes Auto (Bld) [#/Vo l]Ordered By: Everett Valdez on 02-17-2025 Lymphocytes (Bld) [#/Vol] Lymphocytes [#/volume] in Blood by Automated count 1.00-4.[address] [facility] Lymphocytes/100 WBC Auto (Bl d)Ordered By: Everett Valdez on 02-17-2025 Lymphocytes/100 WBC (Bld) Lymphocytes/100 leukocytes in Blood by Automated count . [facility] MCH Auto (RBC) [Entitic mass ]Ordered By: Everett Valdez on 02-17-2025 MCH (RBC) [Entitic mass] MCH [Entitic mass] by Automated count 24.7-34.[address] [facility] MCHC Auto (RBC) [Mass/Vol]Or dered By: Everett Valdez on 02-17-2025 MCHC (RBC) [Mass/Vol] MCHC [Mass/volume] by Automated count 32.0-35.[address] [facility] MCHC (RBC) [Mass/Vol] 34.0 g/dL 32.0-35.0 [facility] MCV Auto (RBC) [Entitic vol] Ordered By: Everett Valdez on 02-17-2025 MCV (RBC) [Entitic vol] MCV [Entitic volume] by Automated count 80-[address] [facility] Monocytes Auto (Bld) [#/Vol] Ordered By: Everett Valdez on 02-17-2025 Monocytes (Bld) [#/Vol] Automated blood monocyte count 0.0-0.[address] [facility] Monocytes/100 WBC Auto (Bld) Ordered By: Everett Valdez on 02-17-2025 Monocytes/100 WBC (Bld) Automated monocyte % . [facility] MyoglobinOrdered By: Everett Valdez on 02-17-2025 Myoglobin [Mass/Vol] 187 ng/mL High 25-58 [facility] Comment on above: Result Comment: Perf ormed at: - [facility] [address] [id number] Casing Material Weigher: Erick Neville PhD, Phone: [phone] PERFORMED BY: [facility] [address] [place] [address] PATHOLOGIST TECHNICAL TRAINER PAZ RUTHERFORD M.D. Performed By: #### E SR, TSH3, CK, ADDONUAPLUS, CBC, CRP, CMP, T4F #### [facility] [address] #### RPR W RFX, ALDOLASE, GUZMAN,URINE, UPE RAND #### [facility] , Performed at: [address] [id number] Director: Erick Neville PhD, Phone: [phone] Neutrophils Auto (Bld) [#/Vo l]Ordered By: Everett Valdez on 02-17-2025 Neutrophils (Bld) [#/Vol] Neutrophils [#/volume] in Blood by Automated count 1.8-7.[address] [facility] Neutrophils/100 WBC Auto (Bl d)Ordered By: Everett Valdez on 02-17-2025 Neutrophils/100 WBC (Bld) Automated neutrophil % . [facility] No Panel InformationOrdered By: Everett Valdez on 02-17-2025 Estimated GFR (CKD-EPI) > 60.0 mL/Min [facility] Creatinine Clearance (Chem N/A [facility] Nucleated erythrocytes [Pres ence] in Blood by Automated countOrdered By: Everett Valdez on 02-17-2025 Nucleated RBC Auto Ql (Bld) Nucleated erythrocytes [Presence] in Blood by Automated count 0-0.[address] [facility] Nucleated RBC Auto Ql (Bld) 0.1 /100{WBC} 0-0.[address] [facility] Platelet mean volume Auto (B ld) [Entitic vol]Ordered By: Everett Valdez on 02-17-2025 Platelet mean volume (Bld) [Entitic vol] Platelet mean volume [Entitic volume] in Blood by Automated count 6.3-10.[address] [facility] Platelets Auto (Bld) [#/Vol] Ordered By: Everett Valdez on 02-17-2025 Platelets (Bld) [#/Vol] Platelets [#/volume] in Blood by Automated count 150-[address] [facility] Potassium [Moles/volume] in Serum or PlasmaOrdered By: Everett Valdez on 02-17-2025 Potassium [Moles/Vol] Potassium [Moles/volume] in Serum or Plasma 3.5-5.[address] [facility] Protein [Mass/volume] in Ser um or PlasmaOrdered By: Everett Valdez on 02-17-2025 Protein [Mass/Vol] Protein [Mass/volume ] in Serum or Plasma Low 6.4-8.[address] [facility] RBC Auto (Bld) [#/Vol]Ordere d By: Everett Valdez on 02-17-2025 RBC (Bld) [#/Vol] Erythrocytes [#/volume] in Blood by Automated count 3.60-5.[address] [facility] Serum aldolase measurementOr dered By: Everett Valdez on 02-17-2025 Aldolase 11.4 U/L High 3.3-10.[address] [facility] Comment on above: Performed at: - [facility] [place] [address]Lab Director: Erick Neville PhD, Phone: [phone] Result Comment: Perf ormed at: Whatever - [facility] [place] [address] Casing Material Weigher: Erick Neville PhD, Phone: [phone] PERFORMED BY: [place] [address] PATHOLOGIST TECHNICAL TRAINER PAZ RUTHERFORD M.D. Performed By: #### E SR, TSH3, CK, ADDONUAPLUS, CBC, CRP, CMP, T4F #### [place] [address] [place] #### RPR W RFX, ALDOLASE, GUZMAN,URINE, UPE RAND #### [facility] , Serum or plasma albumin/glob ulin mass ratioOrdered By: Everett Valdez on 02-17-2025 Albumin/Globulin [Mass ratio] Serum or plasma albumin/globulin mass ratio [facility] Serum or plasma anion gap de terminationOrdered By: Everett Valdez on 02-17-2025 Anion gap [Moles/Vol] Serum or plasma an ion gap determination 6.0-15.[address] [facility] Serum or plasma myoglobin me asurement (mass/volume)Ordered By: Everett Valdez on 02-17-2025 Myoglobin [Mass/Vol] Serum or plasma myoglobin measurement (mass/volume) High 25-[address] [facility] Comment on above: Performed at: [address] [id number] Director: Erick Neville PhD, Phone: [phone] Sodium [Moles/volume] in Ser um or PlasmaOrdered By: Everett Valdez on 02-17-2025 Sodium [Moles/Vol] Sodium [Moles/volume ] in Serum or Plasma 136-[address] [facility] Urea nitrogen [Mass/volume] in Serum or PlasmaOrdered By: Everett Valdez on 02-17-2025 Urea nitrogen [Mass/Vol] Urea nitrogen [Mass/volume] in Serum or Plasma 7-[address] [facility] WBC Auto (Bld) [#/Vol]Ordere d By: Everett Valdez on 02-17-2025 WBC (Bld) [#/Vol] Leukocytes [#/volume ] in Blood by Automated count 3.8-11.[address] [facility] 36on 01-24-2025 36 Attempted to call patient to reschedule canceled [facility] follow up appointment. [facility] XR FOOT RT MIN 3Von 01-03-[address] [place] [address] XRay Report Signed Patient: MARY LEAL MR#: [id number] : 1970 Acct:[id number] Age/Sex: 54 / F ADM Date: 01/03/25 Loc: [facility] Attending Dr: Sade Felix D.P.M. Ordering Physician: Sade Felix D.P.M. Date of Service: 01/03/25 Procedure(s): XR foot RT min 3V Accession Number(s): [id number] cc: Sade Felix D.P.M.; Isatu GÓMEZ [place] [id number] Patient Name: MARY LEAL MRN: [id number] date: 1970 Sex: F Assigned Patient Location: [facility] Current Patient Location: Accession/Order Number: [id number] Exam Date: 01/03/2025 12:17 Report Date: 01/03/2025 [...] Makenna Pathak M.D.01/03/2025 12:21 PM Dictation Location: [place] [address] Electronically authenticated by: [id number] Y Date: 01/03/2025 12:21 Dictated By: Makenna Pathak M.D. Signed By: 01/03/25 1223 DD/ 1221 TD/TT: Flamer After Lasting: [facility] Radiology, Radiologist, - 01/03/2025 [place] [address] XRay Report Signed Patient: MARY LEAL MR#: [id number] : 1970 Acct:[id number] Age/Sex: 54 / F ADM Date: 01/03/25 Loc: [facility] Attending Dr: Sade Felix D.P.M. Ordering Physician: Sade Felix D.P.M. Date of Service: 01/03/25 Procedure(s): XR foot RT min 3V Accession Number(s): [id number] cc: Sade Felix D.P.M.; Isatu GÓMEZ [place] [address] Patient Name: MARY LEAL MRN: [facility]:[id number] date: 1970 Sex: F Assigned Patient Location: Current Patient Location: Accession/Order Number: [id number] Exam Date: 01/03/2025 12:17 Report Date: 01/03/2025 [...] Makenna Pathak M.D.01/03/2025 12:21 PM Dictation Location: [place] [address] Electronically authenticated by: [id number] Y Date: 01/03/2025 12:21 Dictated By: Makenna Pathak M.D. Signed By: 01/03/25 1223 DD/ 1221 TD/TT: Flamer After Lasting: [facility] Radiology Study observation (narrative) [facility] XR FOOT RT MIN 3VOrdered By: Radiologist Radiology on 01-03-2025 [facility] [employer] Work Phone: 24 hour urine albumin/total protein ratio by electrophoresisOrdered By: Everett Valdez on 12-16-2024 Albumin Elph (24H U) [Mass fraction] Albumin/Protein.total in 24 hour Urine by Electrophoresis . [facility] 24 hour urine gamma globulin /total protein ratio by electrophoresisOrdered By: Everett Valdez on 12-16-2024 Gamma globulin Elph (24H U) [Mass fraction] Gamma globulin/Protein.total in 24 hour Urine by Electrophoresis . [facility] 24 hour urine protein monocl onal/total protein by electrophoresisOrdered By: Everett Valdez on 12-16-2024 Protein.monoclonal Elph (24H U) [Mass fraction] Protein.monoclonal/Pro tein.total in 24 hour Urine by Electrophoresis Not Observed [facility] [place] Antinuclear Antibodieson 12-16-2024 Antinuclear Abs, IFA Negative Normal . [facility] Comment on above: Result Comment: Nega tive <1:80 Borderline 1:80 Positive >1:80 ICAP nomenclature: [id number] For more information about Hep-2 cell patterns use ANApatterns.org, the official website for the International Consensus on Antinuclear Antibody (CHUYITA) Patterns (ICAP). Performed at: [facility] [address] [id number] Casing Material Weigher: Erick Neville PhD, Phone: [phone] Performed By: #### P P #### [address] #### LUPANTCOAG #### [facility] , Alanine aminotransferase [En zymatic activity/volume] in Serum or PlasmaOrdered By: Everett Valdez on 12-16-2024 ALT [Catalytic activity/Vol] Alanine aminotransferase [Enzymatic activity/volume] in Serum or Plasma [address] [facility] Albumin [Mass/volume] in Ser um or Plasma by Bromocresol green (BCG) dye binding methoOrdered By: Everett Valdez on 12-16-2024 Albumin BCG dye [Mass/Vol] Albumin [Mass/volume] in Serum or Plasma by Bromocresol green (BCG) dye binding metho 3.5-5.[address] [facility] Alkaline phosphatase [Enzyma tic activity/volume] in Serum or PlasmaOrdered By: Everett Valdez on 12-16-2024 ALP [Catalytic activity/Vol] Alkaline phosphatase [Enzymatic activity/volume] in Serum or Plasma 34-[address] [facility] Antithyroglobulin Abon 12-16 Antithyroglobulin Ab <1.0 Normal 0.0-0.9 [facility] Comment on above: Result Comment: Thyr oglobulin Antibody measured by Zeptor Methodology It should be noted that the presence of thyroglobulin antibodies may not be pathogenic nor diagnostic, especially at very low levels. The assay oven heater has found that four percent of individuals without evidence of thyroid disease or autoimmunity will have positive TgAb levels up to 4 IU/mL. Performed at: - [facility] [address] [id number] Casing Material Weigher: Erick Neville PhD, Phone: [phone] Performed By: #### C BC #### [facility] [address] [place] [address] [facility] Appearance of UrineOrdered B y: Everett Valdez on 12-16-2024 Appearance (U) Urine appearance Clear [facility] Aspartate aminotransferase [ Enzymatic activity/volume] in Serum or PlasmaOrdered By: Everett Valdez on 12-16-2024 AST [Catalytic activity/Vol] Aspartate aminotransferase [Enzymatic activity/volume] in Serum or Plasma 13-[address] [facility] Bacteria [Presence] in Urine by AutomatedOrdered By: Everett Valdez on 12-16-2024 Bacteria Auto Ql (U) Bacteria [Presence] in Urine by Automated None Seen [facility] Basophils Auto (Bld) [#/Vol] Ordered By: Everett Valdez on 12-16-2024 Basophils (Bld) [#/Vol] Automated basophil count 0.0-0.[address] [facility] Basophils/100 WBC Auto (Bld) Ordered By: Everett Valdez on 12-16-2024 Basophils/100 WBC (Bld) Automated basophil % . [facility] Bilirubin Test strip Ql (U)O rdered By: Everett Valdez on 12-16-2024 Bilirubin Ql (U) Bilirubin.total [Presence] in Urine by Test strip Negative [facility] Bilirubin.total [Mass/volume ] in Serum or PlasmaOrdered By: Everett Valdez on 12-16-2024 Bilirubin [Mass/Vol] Bilirubin.total [Mass/volume] in Serum or Plasma 0.3-1.[address] [facility] C reactive protein [Mass/vol ume] in Serum or PlasmaOrdered By: Everett Valdez on 12-16-2024 CRP [Mass/Vol] C reactive protein [Mass/volume] in Serum or Plasma 0.0-0.[address] [facility] C-Reactive Proteinon 025 CRP [Mass/Vol] mg/L Normal 0.0-0.5 [facility] Comment on above: Performed By: #### E SR, TSH3, CK, ADDONUAPLUS, CBC, CRP, CMP, T4F #### [facility] [address] [place] [address] #### RPR W RFX, ALDOLASE, GUZMAN,URINE, UPE RAND #### [facility] , Calcium [Mass/volume] in Ser um or PlasmaOrdered By: Everett Valdez on 12-16-2024 Calcium [Mass/Vol] Calcium [Mass/volume ] in Serum or Plasma 8.6-10.[address] [facility] Carbon dioxide, total [Moles /volume] in Serum or PlasmaOrdered By: Everett Valdez on 12-16-2024 CO2 [Moles/Vol] Carbon dioxide, tota l [Moles/volume] in Serum or Plasma 21.0-31.[address] [facility] Chloride [Moles/volume] in S jay or PlasmaOrdered By: Everett Valdez on 12-16-2024 Chloride [Moles/Vol] Chloride [Moles/volume] in Serum or Plasma 98-[address] [facility] Chromatin Antibodyon 025 Chromatin Antibody <0.2 Normal 0.0-0.9 [facility] Comment on above: Result Comment: Perf ormed at: - [facility] [address] [id number] Casing Material Weigher: Erick Neville PhD, Phone: [phone] PERFORMED BY: [place] [address] PATHOLOGIST TECHNICAL TRAINER PAZ RUTHERFORD M.D. Performed By: #### C BC #### [address] Coagulation Profileon 2024 aPTT Coag (Bld) [Time] 28.7 s Normal 25.1-36.5 [facility] Comment on above: Result Comment: A he matocrit value greater than 55% may lead to inaccurate results in coagulation testing. Patients having hematocrit values >55% require a special collection tube for coagulation studies. Please contact the laboratory at [phone] for redraw instructions. PERFORMED BY: [place] [address] PATHOLOGIST TECHNICAL TRAINER PAZ RUTHERFORD M.D. Performed By: #### P P #### [place] [address] [place] #### LUPANTCOAG #### [facility] , INR Coag (PPP) [Relative time] 0.9 {INR} Normal [facility] Comment on above: Result [...] 4.5 Performed By: #### P P #### [place] [address] [place] #### LUPANTCOAG #### [facility] , PT Coag (PPP) [Time] 10.5 s Normal 9.0-12.9 [facility] Comment on above: Result Comment: A he matocrit value greater than 55% may lead to inaccurate results in coagulation testing. Patients having hematocrit values >55% require a special collection tube for coagulation studies. Please contact the laboratory at [phone] for redraw instructions. Performed By: #### P P #### [place] [address] [place] #### LUPANTCOAG #### [facility] , Color Auto (U)Ordered By: Dori Valdez on 12-16-2024 Color (U) Color of Urine by Auto Yellow [facility] Complement C3on 12-16-2024 Complement C3 133 mg/dL Normal 82-167 [facility] Comment on above: Result Comment: Perf ormed at: CB - [facility] [address] [id number] Casing Material Weigher: Erick Neville PhD, Phone: [phone] Performed By: #### C BC #### [place] [address] [place] Complement C4on 12-16-2024 Complement C4 26 mg/dL Normal 12-38 [facility] Comment on above: Performed By: #### C BC #### [address] Complement Total (CH50)on Complement Total (CH50) >60 Normal >41 [facility] Comment on above: Result [...] out of range values. Performed at: - [facility] [id number] Casing Material Weigher: Erick Neville PhD, Phone: [phone] PERFORMED BY: [place] [address] PATHOLOGIST TECHNICAL TRAINER PAZ RUTHERFORD M.D. Performed By: #### P P #### [address] #### LUPANTCOAG #### [facility] , Complete Blood Count Auto Di ffon 12-16-2024 Basophils (Bld) [#/Vol] 0.0 10*3/uL Normal 0.0-0.2 [facility] Comment on above: Performed By: #### P P #### [place] [address] [place] #### LUPANTCOAG #### [facility] , Basophils/100 WBC (Bld) 0.7 % Normal . [facility] Comment on above: Performed By: #### P P #### [place] [id number] [place] #### LUPANTCOAG #### [facility] , Eosinophils (Bld) [#/Vol] 0.1 10*3/uL Normal 0.0-0.45 [facility] Comment on above: Performed By: #### P P #### [address] #### LUPANTCOAG #### [facility] , Eosinophils/100 WBC (Bld) 2.3 % Normal . [facility] Comment on above: Performed By: #### P P #### [address] #### LUPANTCOAG #### [facility] , Erythrocyte distribution width (RBC) [Ratio] 12.8 % Normal 11.9-15.3 [facility] Comment on above: Performed By: #### P P #### [address] #### LUPANTCOAG #### [facility] , Hematocrit (Bld) [Volume fraction] 39.6 % Normal 34.0-46.4 [facility] Comment on above: Performed By: #### P P #### [address] #### LUPANTCOAG #### [facility] , Hemoglobin (Bld) [Mass/Vol] 13.3 g/dL Normal 11.8-15.4 [facility] Comment on above: Performed By: #### P P #### [place] [address] [place] #### LUPANTCOAG #### [facility] , Lymphocytes (Bld) [#/Vol] 1.8 10*3/uL Normal 1.00-4.8 [facility] Comment on above: Performed By: #### P P #### [address] #### LUPANTCOAG #### [facility] , Lymphocytes/100 WBC (Bld) 32.0 % Normal . [facility] Comment on above: Performed By: #### P P #### [place] [address] [place] #### LUPANTCOAG #### [facility] , MCH (RBC) [Entitic mass] 28.4 pg Normal 24.7-34.3 [facility] Comment on above: Performed By: #### P P #### [address] #### LUPANTCOAG #### [facility] , MCV (RBC) [Entitic vol] 84.6 fL Normal 80-100 [facility] Comment on above: Performed By: #### P P #### [address] #### LUPANTCOAG #### [facility] , Mean Corpuscular HGB Conc 33.6 g/dL Normal 32.0-35.0 [facility] Comment on above: Performed By: #### P P #### [address] #### LUPANTCOAG #### [facility] , Monocytes (Bld) [#/Vol] 0.3 10*3/uL Normal 0.0-0.8 [facility] Comment on above: Performed By: #### P P #### [place] [address] [place] #### LUPANTCOAG #### [facility] , Monocytes/100 WBC (Bld) 5.1 % Normal . [facility] Comment on above: Performed By: #### P P #### [place] [address] [place] #### LUPANTCOAG #### [facility] , Neutrophils (Bld) [#/Vol] 3.3 10*3/uL Normal 1.8-7.7 [facility] Comment on above: Performed By: #### P P #### [facility] [address] [place] [address] [place] #### LUPANTCOAG #### [facility] , Neutrophils/100 WBC (Bld) 59.9 % Normal . [facility] Comment on above: Performed By: #### P P #### [facility] [address] [place] [address] [place] #### LUPANTCOAG #### [facility] , NRBC% 0.1 /100{WBC} Normal 0-0.5 [facility] Comment on above: Performed By: #### P P #### [place] [address] [place] #### LUPANTCOAG #### [facility] , Platelet mean volume (Bld) [Entitic vol] 7.5 fL Normal 6.3-10.7 [facility] Comment on above: Performed By: #### P P #### [facility] [address] [place] [address] [place] #### LUPANTCOAG #### [facility] , Platelets (Bld) [#/Vol] 347 10*3/uL Normal 150-450 [facility] Comment on above: Performed By: #### P P #### [place] [address] [place] #### LUPANTCOAG #### [facility] , RBC (Bld) [#/Vol] 4.68 10*6/uL Normal 3.60-5.00 [facility] Comment on above: Performed By: #### P P #### [facility] [address] [place] [address] [place] #### LUPANTCOAG #### [facility] , WBC (Bld) [#/Vol] 5.6 10*3/uL Normal 3.8-11.6 [facility] Comment on above: Performed By: #### P P #### [address] #### LUPANTCOAG #### [facility] , Comprehensive Metabolic Pane boyd 12-16-2024 Albumin [Mass/Vol] 4.1 g/dL Normal 3.5-5.7 [facility] Comment on above: Performed By: #### E SR, TSH3, CK, ADDONUAPLUS, CBC, CRP, CMP, T4F #### [address] #### RPR W RFX, ALDOLASE, GUZMAN,URINE, UPE RAND #### [facility] , Albumin/Globulin [Mass ratio] 1.9 {ratio} Normal [facility] Comment on above: Performed By: #### E SR, TSH3, CK, ADDONUAPLUS, CBC, CRP, CMP, T4F #### [address] #### RPR W RFX, ALDOLASE, GUZMAN,URINE, UPE RAND #### [facility] , ALP [Catalytic activity/Vol] 84 U/L Normal 34-104 [facility] Comment on above: Performed By: #### E SR, TSH3, CK, ADDONUAPLUS, CBC, CRP, CMP, T4F #### [place] [address] [place] #### RPR W RFX, ALDOLASE, GUZMAN,URINE, UPE RAND #### [facility] , ALT [Catalytic activity/Vol] 31 U/L Normal 7-52 [facility] Comment on above: Performed By: #### E SR, TSH3, CK, ADDONUAPLUS, CBC, CRP, CMP, T4F #### [place] [address] [place] #### RPR W RFX, ALDOLASE, GUZMAN,URINE, UPE RAND #### [facility] , Anion gap [Moles/Vol] 8.2 mmol/L Normal 6.0-15.0 [facility] Comment on above: Performed By: #### E SR, TSH3, CK, ADDONUAPLUS, CBC, CRP, CMP, T4F #### [address] #### RPR W RFX, ALDOLASE, GUZMAN,URINE, UPE RAND #### [facility] , AST [Catalytic activity/Vol] 31 U/L Normal 13-39 [facility] Comment on above: Performed By: #### E SR, TSH3, CK, ADDONUAPLUS, CBC, CRP, CMP, T4F #### [address] #### RPR W RFX, ALDOLASE, GUZMAN,URINE, UPE RAND #### [facility] , Bilirubin [Mass/Vol] 0.3 mg/dL Normal 0.3-1.0 [facility] Comment on above: Performed By: #### E SR, TSH3, CK, ADDONUAPLUS, CBC, CRP, CMP, T4F #### [address] #### RPR W RFX, ALDOLASE, GUZMAN,URINE, UPE RAND #### [facility] , Calcium [Mass/Vol] 9.3 mg/dL Normal 8.6-10.3 [facility] Comment on above: Performed By: #### E SR, TSH3, CK, ADDONUAPLUS, CBC, CRP, CMP, T4F #### [place] [address] [place] #### RPR W RFX, ALDOLASE, GUZMAN,URINE, UPE RAND #### [facility] , Chloride [Moles/Vol] 107 mmol/L Normal 98-107 [facility] Comment on above: Performed By: #### E SR, TSH3, CK, ADDONUAPLUS, CBC, CRP, CMP, T4F #### [address] #### RPR W RFX, ALDOLASE, GUZMAN,URINE, UPE RAND #### [facility] , CO2 [Moles/Vol] 30.0 mmol/L Normal 21.0-31.0 [facility] Comment on above: Performed By: #### E SR, TSH3, CK, ADDONUAPLUS, CBC, CRP, CMP, T4F #### [address] #### RPR W RFX, ALDOLASE, GUZMAN,URINE, UPE RAND #### [facility] , Creatinine [Mass/Vol] 0.70 mg/dL Normal 0.60-1.20 [facility] Comment on above: Performed By: #### E SR, TSH3, CK, ADDONUAPLUS, CBC, CRP, CMP, T4F #### [address] #### RPR W RFX, ALDOLASE, GUZMAN,URINE, UPE RAND #### [facility] , GFR/1.73 sq M.predicted MDRD (S/P/Bld) [Vol rate/Area] mL/min/{1.73_m2} Normal [facility] Comment on above: Performed By: #### E SR, TSH3, CK, ADDONUAPLUS, CBC, CRP, CMP, T4F #### [place] [address] [place] #### RPR W RFX, ALDOLASE, GUZMAN,URINE, UPE RAND #### [facility] , Globulin (S) [Mass/Vol] 2.2 g/dL Normal [facility] Comment on above: Performed By: #### E SR, TSH3, CK, ADDONUAPLUS, CBC, CRP, CMP, T4F #### [address] #### RPR W RFX, ALDOLASE, GUZMAN,URINE, UPE RAND #### [facility] , Glucose [Mass/Vol] 85 mg/dL Normal 70-100 [facility] Comment on above: Result Comment: Vivian Glucose Reference Range is dependent on time and content of last meal. Glucose of more than 200 mg/dL in a nonstressed, ambulatory subject supports the diagnosis of Diabetes Mellitus. ADA recommended reference range Performed By: #### E SR, TSH3, CK, ADDONUAPLUS, CBC, CRP, CMP, T4F #### [address] #### RPR W RFX, ALDOLASE, GUZMAN,URINE, UPE RAND #### [facility] , Potassium [Moles/Vol] 4.2 mmol/L Normal 3.5-5.1 [facility] Comment on above: Performed By: #### E SR, TSH3, CK, ADDONUAPLUS, CBC, CRP, CMP, T4F #### [address] #### RPR W RFX, ALDOLASE, GUZMAN,URINE, UPE RAND #### [facility] , Protein [Mass/Vol] 6.3 g/dL Low 6.4-8.9 [facility] Comment on above: Performed By: #### E SR, TSH3, CK, ADDONUAPLUS, CBC, CRP, CMP, T4F #### [address] #### RPR W RFX, ALDOLASE, GUZMAN,URINE, UPE RAND #### [facility] , Sodium [Moles/Vol] 141 mmol/L Normal 136-145 [facility] Comment on above: Performed By: #### E SR, TSH3, CK, ADDONUAPLUS, CBC, CRP, CMP, T4F #### [address] #### RPR W RFX, ALDOLASE, GUZMAN,URINE, UPE RAND #### [facility] , Urea nitrogen [Mass/Vol] 11 mg/dL Normal 7-25 [facility] Comment on above: Performed By: #### E SR, TSH3, CK, ADDONUAPLUS, CBC, CRP, CMP, T4F #### [address] #### RPR W RFX, ALDOLASE, GUZMAN,URINE, UPE RAND #### [facility] , Creatine Kinaseon 12-16-2024 CK [Catalytic activity/Vol] 487 U/L High 30 [facility] Comment on above: Result Comment: PERF ORMED BY: [place] [address] PATHOLOGIST TECHNICAL TRAINER PAZ RUTHERFORD M.D. Performed By: #### E SR, TSH3, CK, ADDONUAPLUS, CBC, CRP, CMP, T4F #### [address] #### RPR W RFX, ALDOLASE, GUZMAN,URINE, UPE RAND #### [facility] , Creatine kinase [Enzymatic a ctivity/volume] in Serum or PlasmaOrdered By: Everett Valdez on 12-16-2024 CK [Catalytic activity/Vol] Creatine kinase [Enzymatic activity/volume] in Serum or Plasma High 30-[address] [facility] Creatinine [Mass/volume] in Serum or PlasmaOrdered By: Everett Valdez on 12-16-2024 Creatinine [Mass/Vol] Creatinine [Mass/volume] in Serum or Plasma 0.60-1.[address] [facility] Dipstick and Microscopicon 0 12-16-2024 Appearance (U) Clear Normal Clear [facility] Comment on above: Order Comment: Name Collection Type:: Clean-Voided Midstream Performed By: #### E SR, TSH3, CK, ADDONUAPLUS, CBC, CRP, CMP, T4F #### [address] #### RPR W RFX, ALDOLASE, GUZMAN,URINE, UPE RAND #### [facility] , Bacteria,Urine Rare Normal None Seen [facility] Comment on above: Order Comment: Name Collection Type:: Clean-Voided Midstream Performed By: #### E SR, TSH3, CK, ADDONUAPLUS, CBC, CRP, CMP, T4F #### [address] #### RPR W RFX, ALDOLASE, GUZMAN,URINE, UPE RAND #### [facility] , Bilirubin,Urine Negative Normal Negative [facility] Comment on above: Order Comment: Name Collection Type:: Clean-Voided Midstream Performed By: #### E SR, TSH3, CK, ADDONUAPLUS, CBC, CRP, CMP, T4F #### [address] #### RPR W RFX, ALDOLASE, GUZMAN,URINE, UPE RAND #### [facility] , Color (U) Yellow Normal Yellow [facility] Comment on above: Order Comment: Name Collection Type:: Clean-Voided Midstream Performed By: #### E SR, TSH3, CK, ADDONUAPLUS, CBC, CRP, CMP, T4F #### [address] #### RPR W RFX, ALDOLASE, GUZMAN,URINE, UPE RAND #### [facility] , Glucose Ql (U) Normal Normal Normal [facility] Comment on above: Order Comment: Name Collection Type:: Clean-Voided Midstream Performed By: #### E SR, TSH3, CK, ADDONUAPLUS, CBC, CRP, CMP, T4F #### [address] #### RPR W RFX, ALDOLASE, GUZMAN,URINE, UPE RAND #### [facility] , Hyaline Casts,Urine 0-8 Normal 0-8 [facility] Comment on above: Order Comment: Name Collection Type:: Clean-Voided Midstream Performed By: #### E SR, TSH3, CK, ADDONUAPLUS, CBC, CRP, CMP, T4F #### [address] #### RPR W RFX, ALDOLASE, GUZMAN,URINE, UPE RAND #### [facility] , Ketones Ql (U) Negative Normal Negative [facility] Comment on above: Order Comment: Name Collection Type:: Clean-Voided Midstream Performed By: #### E SR, TSH3, CK, ADDONUAPLUS, CBC, CRP, CMP, T4F #### [address] #### RPR W RFX, ALDOLASE, GUZMAN,URINE, UPE RAND #### [facility] , Leukocyte esterase Test strip Ql (U) Negative Normal Negative [facility] Comment on above: Order Comment: Name Collection Type:: Clean-Voided Midstream Performed By: #### E SR, TSH3, CK, ADDONUAPLUS, CBC, CRP, CMP, T4F #### [address] #### RPR W RFX, ALDOLASE, GUZMAN,URINE, UPE RAND #### [facility] , Mucus,Urine 1+ Critically abnormal [facility] Comment on above: Order Comment: Name Collection Type:: Clean-Voided Midstream Result Comment: PERF ORMED BY: [place] [address] PATHOLOGIST TECHNICAL TRAINER PAZ RUTHERFORD M.D. Performed By: #### E SR, TSH3, CK, ADDONUAPLUS, CBC, CRP, CMP, T4F #### [address] #### RPR W RFX, ALDOLASE, GUZMAN,URINE, UPE RAND #### [facility] , Nitrite,Urine Negative Normal Negative [facility] Comment on above: Order Comment: Name Collection Type:: Clean-Voided Midstream Performed By: #### E SR, TSH3, CK, ADDONUAPLUS, CBC, CRP, CMP, T4F #### [address] #### RPR W RFX, ALDOLASE, GUZMAN,URINE, UPE RAND #### [facility] , Occult Blood,Urine Negative Normal Negative [facility] Comment on above: Order Comment: Name Collection Type:: Clean-Voided Midstream Performed By: #### E SR, TSH3, CK, ADDONUAPLUS, CBC, CRP, CMP, T4F #### [address] #### RPR W RFX, ALDOLASE, GUZMAN,URINE, UPE RAND #### [facility] , pH (U) 5.0 [pH] Normal 5.0-9.0 [facility] Comment on above: Order Comment: Name Collection Type:: Clean-Voided Midstream Performed By: #### E SR, TSH3, CK, ADDONUAPLUS, CBC, CRP, CMP, T4F #### [place] [address] [place] #### RPR W RFX, ALDOLASE, GUZMAN,URINE, UPE RAND #### [facility] , Protein,Urine Negative Normal Negative [facility] Comment on above: Order Comment: Name Collection Type:: Clean-Voided Midstream Performed By: #### E SR, TSH3, CK, ADDONUAPLUS, CBC, CRP, CMP, T4F #### [address] #### RPR W RFX, ALDOLASE, GUZMAN,URINE, UPE RAND #### [facility] , RBC,Urine 1-2 Normal 0-4 [facility] Comment on above: Order Comment: Name Collection Type:: Clean-Voided Midstream Performed By: #### E SR, TSH3, CK, ADDONUAPLUS, CBC, CRP, CMP, T4F #### [address] #### RPR W RFX, ALDOLASE, GUZMAN,URINE, UPE RAND #### [facility] , Specificy [place],Urine 1.024 Normal 1.001-1.030 [facility] Comment on above: Order Comment: Name Collection Type:: Clean-Voided Midstream Performed By: #### E SR, TSH3, CK, ADDONUAPLUS, CBC, CRP, CMP, T4F #### [address] #### RPR W RFX, ALDOLASE, GUZMAN,URINE, UPE RAND #### [facility] , Squamous Epithelial Cell,Urine 5-9 High 0-2 [facility] Comment on above: Order Comment: Name Collection Type:: Clean-Voided Midstream Performed By: #### E SR, TSH3, CK, ADDONUAPLUS, CBC, CRP, CMP, T4F #### [address] #### RPR W RFX, ALDOLASE, GUZMAN,URINE, UPE RAND #### [facility] , Urobilinogen,Urine Normal Normal Normal [facility] Comment on above: Order Comment: Name Collection Type:: Clean-Voided Midstream Performed By: #### E SR, TSH3, CK, ADDONUAPLUS, CBC, CRP, CMP, T4F #### [address] #### RPR W RFX, ALDOLASE, GUZMAN,URINE, UPE RAND #### [facility] , WBC,Urine 1-2 Normal 0-4 [facility] Comment on above: Order Comment: Name Collection Type:: Clean-Voided Midstream Performed By: #### E SR, TSH3, CK, ADDONUAPLUS, CBC, CRP, CMP, T4F #### [facility] [address] [place] [address] [place] #### RPR W RFX, ALDOLASE, GUZMAN,URINE, UPE RAND #### [facility] , Eosinophils Auto (Bld) [#/Vo l]Ordered By: Everett Valdez on 12-16-2024 Eosinophils (Bld) [#/Vol] Automated eosinophil count 0.0-0.[address] [facility] Eosinophils/100 WBC Auto (Bl d)Ordered By: Everett Valdez on 12-16-2024 Eosinophils/100 WBC (Bld) Automated eosinophil % . [facility] Epithelial cells.squamous [# /area] in Urine sediment by Automated countOrdered By: Everett Valdez on 12-16-2024 Epithelial cells.squamous Auto (Urine sed) [#/Area] Epithelial cells.squamous [#/area] in Urine sediment by Automated count High 0-[address] [facility] Erythrocyte Sedimentation Ra lian 12-16-2024 ESR (Bld) [Velocity] 6 mm/h Normal 0-29 [facility] Comment on above: Result Comment: PERF ORMED BY: [place] [address] PATHOLOGIST TECHNICAL TRAINER PAZ RUTHERFORD M.D. Performed By: #### P P #### [facility] [address] [place] [address] [place] #### LUPANTCOAG #### [facility] , Erythrocyte distribution wid th Auto (RBC) [Ratio]Ordered By: Everett Valdez on 12-16-2024 Erythrocyte distribution width (RBC) [Ratio] Erythrocyte distribution width [Ratio] by Automated count 11.9-15.[address] [facility] Erythrocyte sedimentation ra te by Photometric methodOrdered By: Everett Valdez on 12-16-2024 ESR Photometric method (Bld) [Velocity] Erythrocyte sedimentation rate by Photometric method 0-[address] [facility] Erythrocytes [#/area] in Uri ne sediment by Automated countOrdered By: Everett Valdez on 12-16-2024 RBC Auto (Urine sed) [#/Area] Erythrocytes [#/area] in Urine sediment by Automated count 0-[address] [facility] Free T4 (Free Thyroxine)on 0 12-16-2024 Free T4 [Mass/Vol] 0.77 ng/dL Normal 0.61-1.12 [facility] Comment on above: Performed By: #### E SR, TSH3, CK, ADDONUAPLUS, CBC, CRP, CMP, T4F #### [facility] [address] #### RPR W RFX, ALDOLASE, GUZMAN,URINE, UPE RAND #### [facility] , Globulin Calc (S) [Mass/Vol] Ordered By: Everett Valdez on 12-16-2024 Globulin (S) [Mass/Vol] Serum globulin measurement by calculation (mass/volume) [facility] Glucose [Mass/volume] in Ser um or PlasmaOrdered By: Everett Valdez on 12-16-2024 Glucose [Mass/Vol] Glucose [Mass/volume ] in Serum or Plasma 70-[address] [facility] Comment on above: ADA recommended refe [...] [Mass/volume] in Urine by Test strip Normal [facility] Hematocrit Auto (Bld) [Volum e fraction]Ordered By: Everett Valdez on 12-16-2024 Hematocrit (Bld) [Volume fraction] Hematocrit [Volume Fraction] of Blood by Automated count 34.0-46.[address] [facility] Hemoglobin Test strip Ql (U) Ordered By: Everett Valdez on 12-16-2024 Hemoglobin Ql (U) Hemoglobin [Presence ] in Urine by Test strip Negative [facility] Hemoglobin [Mass/volume] in BloodOrdered By: Everett Valdez on 12-16-2024 Hemoglobin (Bld) [Mass/Vol] Hemoglobin [Mass/volume] in Blood 11.8-15.[address] [facility] Hyaline casts [#/area] in Ur ine sediment by Automated countOrdered By: Everett Valdez on 12-16-2024 Hyaline casts Auto (Urine sed) [#/Area] Hyaline casts [#/area] in Urine sediment by Automated count 0-[address] [facility] INR in Platelet poor plasma by Coagulation assayOrdered By: Everett Valdez on 12-16-2024 INR Coag (PPP) [Relative time] INR in Platelet poor plasma by Coagulation assay [facility] Comment on above: INR Therapeutic Rang [...] Immunofixation (U) [Interp] Immunofixation for Urine . [facility] Comment on above: No monoclonality det ected.Performed at: [facility] [employer] [facility] [address] [id number] Director: Erick Neville PhD, Phone: [phone] Immunofixation, (GUZMAN), Urine on 12-16-2024 Immunofixation, (GUZMAN), Urine Comment Normal . [facility] Comment on above: Result Comment: No m onoclonality detected. Performed at: [facility] [employer] [address] [id number] Casing Material Weigher: Erick Neville PhD, Phone: [phone] Performed By: #### P P #### [place] [address] [place] #### LUPANTCOAG #### [facility] , Immunofixation,Serumon 12-16 Immunofixation, Serum Comment Normal . [facility] Comment on above: Result Comment: No m onoclonality detected. Performed By: #### P P #### [facility] [address] [place] [address] [place] #### LUPANTCOAG #### [facility] , Immunoglobulin A, Serum 216 mg/dL Normal 87-352 [facility] Comment on above: Performed By: #### P P #### [place] [address] [place] #### LUPANTCOAG #### [facility] , Immunoglobulin G 802 mg/dL Normal 586-1602 [facility] Comment on above: Performed By: #### P P #### [place] [address] [place] #### LUPANTCOAG #### [facility] , Immunoglobulin M, Serum 78 mg/dL Normal 26-217 [facility] Comment on above: Result Comment: Perf ormed at: - [facility] [place] [id number] Casing Material Weigher: Erick Neville PhD, Phone: [phone] Performed By: #### P P #### [place] [address] [place] #### LUPANTCOAG #### [facility] , Ketones Test strip Ql (U)Ord ered By: Everett Valdez on 12-16-2024 Ketones Ql (U) Ketones [Presence] i n Urine by Test strip Negative [facility] Leukocyte esterase [Presence ] in Urine by Test stripOrdered By: Everett Valdez on 12-16-2024 Leukocyte esterase Test strip Ql (U) Leukocyte esterase [Presence] in Urine by Test strip Negative [facility] Leukocytes [#/area] in Urine sediment by Automated countOrdered By: Everett Valdez on 12-16-2024 WBC Auto (Urine sed) [#/Area] Leukocytes [#/area] in Urine sediment by Automated count 0-[address] [facility] Leukocytes [#/volume] correc herbert for nucleated erythrocytes in Blood by Automated counOrdered By: Everett Valdez on 12-16-2024 WBC corrected for nucl RBC Auto (Bld) [#/Vol] Leukocytes [#/volume] corrected for nucleated erythrocytes in Blood by Automated coun 3.8-11.[address] [facility] Lupus Anticoagulant Compon 0 12-16-2024 Dilute Prothrombin Time (dPt) 30.8 Normal 0.0-47.6 [facility] Comment on above: Performed By: #### P P #### [facility] [address] [place] [address] #### LUPANTCOAG #### [facility] , dPT Confirm Ratio 1.06 Normal 0.00-1.34 [facility] Comment on above: Performed By: #### P P #### [facility] [address] [place] [address] [place] #### LUPANTCOAG #### [facility] , DRVVT Lupus 37.0 Normal 0.0-47.0 [facility] Comment on above: Performed By: #### P P #### [facility] [address] [place] [address] [place] #### LUPANTCOAG #### [facility] , Interpretation Comment: Normal . [facility] Comment on above: Result Comment: No l upus anticoagulant was detected. Performed at: - [facility] [id number] Casing Material Weigher: Jim Gong MD, Phone: [phone] PERFORMED BY: [place] [address] PATHOLOGIST TECHNICAL TRAINER PAZ RUTHERFORD M.D. Performed By: #### P P #### [place] [address] [place] #### LUPANTCOAG #### [facility] , PTT-LA 26.8 Normal 0.0-43.5 [facility] Comment on above: Performed By: #### P P #### [facility] [address] [place] [address] [place] #### LUPANTCOAG #### [facility] , Thrombin Time 19.0 Normal 0.0-23.0 [facility] Comment on above: Performed By: #### P P #### [facility] [address] [place] [address] [place] #### LUPANTCOAG #### [facility] , Lupus anticoagulant [Interpr etation] in Platelet poor plasmaOrdered By: Everett Valdez on 12-16-2024 Lupus anticoagulant (PPP) [Interp] Lupus anticoagulant [Interpretation] in Platelet poor plasma . [facility] Comment on above: No lupus anticoagula nt was detected.Performed at: - [address] [id number] Director: Jim Gong MD, Phone: [phone] Lymphocytes Auto (Bld) [#/Vo l]Ordered By: Everett Valdez on 12-16-2024 Lymphocytes (Bld) [#/Vol] Lymphocytes [#/volume] in Blood by Automated count 1.00-4.[address] [facility] Lymphocytes/100 WBC Auto (Bl d)Ordered By: Everett Valdez on 12-16-2024 Lymphocytes/100 WBC (Bld) Lymphocytes/100 leukocytes in Blood by Automated count . [facility] MCH Auto (RBC) [Entitic mass ]Ordered By: Everett Valdez on 12-16-2024 MCH (RBC) [Entitic mass] MCH [Entitic mass] by Automated count 24.7-34.[address] [facility] MCHC Auto (RBC) [Mass/Vol]Or dered By: Everett Valdez on 12-16-2024 MCHC (RBC) [Mass/Vol] MCHC [Mass/volume] by Automated count 32.0-35.[address] [facility] MCV Auto (RBC) [Entitic vol] Ordered By: Everett Valdez on 12-16-2024 MCV (RBC) [Entitic vol] MCV [Entitic volume] by Automated count 80-[address] [facility] Monocytes Auto (Bld) [#/Vol] Ordered By: Everett Valdez on 12-16-2024 Monocytes (Bld) [#/Vol] Automated blood monocyte count 0.0-0.[address] [facility] Monocytes/100 WBC Auto (Bld) Ordered By: Everett Valdez on 12-16-2024 Monocytes/100 WBC (Bld) Automated monocyte % . [facility] Mucus [Presence] in Urine by AutomatedOrdered By: Everett Valdez on 12-16-2024 Mucus Auto Ql (U) Mucus [Presence] in Urine by Automated Abnormal [facility] Neutrophils Auto (Bld) [#/Vo l]Ordered By: Everett Valdez on 12-16-2024 Neutrophils (Bld) [#/Vol] Neutrophils [#/volume] in Blood by Automated count 1.8-7.[address] [facility] Neutrophils/100 WBC Auto (Bl d)Ordered By: Everett Valdez on 12-16-2024 Neutrophils/100 WBC (Bld) Automated neutrophil % . [facility] Nitrite Test strip Ql (U)Ord ered By: Everett Valdez on 12-16-2024 Nitrite Ql (U) Nitrite [Presence] i n Urine by Test strip Negative [facility] No Panel InformationOrdered By: Everett Valdez on 12-16-2024 Estimated GFR (CKD-EPI) > 60.0 mL/Min [facility] Creatinine Clearance (Chem N/A [facility] Protein Electrophoresis M-Juan Miguel Not observed g/dL Not Observed [facility] Protein Electrophoresis Note Comment . [facility] Comment on above: Protein electrophore sis scan will follow via computer,mail, or upholstery department supervisor delivery.Performed at: [address] [id number] Director: Erick Neville PhD, Phone: [phone] Urine Random Prot Electrophor Note Comment . [facility] Comment on above: Protein electrophore sis scan will follow via computer,mail, or upholstery department supervisor delivery. Nucleated erythrocytes [Pres ence] in Blood by Automated countOrdered By: Everett Valdez on 12-16-2024 Nucleated RBC Auto Ql (Bld) Nucleated erythrocytes [Presence] in Blood by Automated count 0-0.[address] [facility] Plasma thrombin timeOrdered By: Everett Valdez on 12-16-2024 Thrombin time Coag (PPP) [Time] TT plas 0.0-23.[address] [facility] Platelet mean volume Auto (B ld) [Entitic vol]Ordered By: Everett Valdez on 12-16-2024 Platelet mean volume (Bld) [Entitic vol] Platelet mean volume [Entitic volume] in Blood by Automated count 6.3-10.[address] [facility] Platelet poor plasma ratio o f lupus anticoagulant-sensitive activated partial thromboOrdered By: Everett Valdez on 12-16-2024 aPTT.lupus sensitive.excess phospholipid actual/normal Coag (PPP) [Relative time] Platelet poor plasma ratio of lupus anticoagulant-sensitiv e activated partial thrombo 0.0-47.[address] [facility] Platelets Auto (Bld) [#/Vol] Ordered By: Everett Valdez on 12-16-2024 Platelets (Bld) [#/Vol] Platelets [#/volume] in Blood by Automated count 150-[address] [facility] Potassium [Moles/volume] in Serum or PlasmaOrdered By: Everett Valdez on 12-16-2024 Potassium [Moles/Vol] Potassium [Moles/volume] in Serum or Plasma 3.5-5.[address] [facility] Protein Electro, Random Urin destinee 12-16-2024 Albumin, Urine 34.3 % Normal . [facility] Comment on above: Performed By: #### P P #### [facility] [address] [place] [address] [place] #### LUPANTCOAG #### [facility] , Liado-3-Vuakgrqp, Urine 2.2 % Normal . [facility] Comment on above: Performed By: #### P P #### [facility] [address] [place] [address] [place] #### LUPANTCOAG #### [facility] , Cbyrr-1-Badnmsyf, Urine 18.4 % Normal . [facility] Comment on above: Performed By: #### P P #### [place] [address] [place] #### LUPANTCOAG #### [facility] , Beta Globulin, Urine 30.5 % Normal . [facility] Comment on above: Performed By: #### P P #### [address] #### LUPANTCOAG #### [facility] , Gamma Globulin, Urine 14.7 % Normal . [facility] Comment on above: Performed By: #### P P #### [place] [address] [place] #### LUPANTCOAG #### [facility] , M-Juan Miguel % Not Observed Normal Not Observed [facility] Comment on above: Performed By: #### P P #### [address] #### LUPANTCOAG #### [facility] , Please Note: Comment Normal . [facility] Comment on above: Result Comment: Prot ein electrophoresis scan will follow via computer, mail, or upholstery department supervisor delivery. PERFORMED BY: [place] [address] PATHOLOGIST TECHNICAL TRAINER PAZ RUTHERFORD M.D. Performed By: #### P P #### [place] [address] [place] #### LUPANTCOAG #### [facility] , Protein (U) [Mass/Vol] 9.0 mg/dL Normal Not Estab. [facility] Comment on above: Performed By: #### P P #### [place] [address] [place] #### LUPANTCOAG #### [facility] , Protein Electrophoresis, Ser umon 12-16-2024 Albumin [Mass/Vol] 3.8 g/dL Normal 2.9-4.4 [facility] Comment on above: Performed By: #### C BC #### [address] Albumin/Globulin [Mass ratio] 1.4 {ratio} Normal 0.7-1.7 [facility] Comment on above: Performed By: #### C BC #### [address] Eqfdo-7-Uoypiggd 0.2 g/dL Normal 0.0-0.4 [facility] Comment on above: Performed By: #### C BC #### [address] Trvlu-9-Injtrfbi 0.6 g/dL Normal 0.4-1.0 [facility] Comment on above: Performed By: #### C BC #### [address] Beta Globulin 1.1 g/dL Normal 0.7-1.3 [facility] Comment on above: Performed By: #### C BC #### [address] Gamma Globulin 0.8 g/dL Normal 0.4-1.8 [facility] Comment on above: Performed By: #### C BC #### [address] Globulin (S) [Mass/Vol] 2.7 g/dL Normal 2.2-3.9 [facility] Comment on above: Performed By: #### C BC #### [place] [address] [place] M-Juan Miguel Not Observed Normal Not Observed [facility] Comment on above: Performed By: #### C BC #### [address] Protein [Mass/Vol] 6.5 g/dL Normal 6.0-8.5 [facility] Comment on above: Performed By: #### C BC #### [place] [address] [place] SPE-Note Comment Normal . [facility] Comment on above: Result Comment: Prot ein electrophoresis scan will follow via computer, mail, or upholstery department supervisor delivery. Performed at: [facility] [address] [id number] Casing Material Weigher: Erick Neville PhD, Phone: [phone] Performed By: #### C BC #### [address] Protein Test strip (U) [Mass /Vol]Ordered By: Everett Valdez on 12-16-2024 Protein (U) [Mass/Vol] Protein [Mass/volume] in Urine by Test strip Negative [facility] Protein [Mass/volume] in Ser um or PlasmaOrdered By: Everett Valdez on 12-16-2024 Protein [Mass/Vol] Protein [Mass/volume ] in Serum or Plasma 6.0-8.[address] [facility] Prothrombin time (PT)Ordered By: Everett Valdez on 12-16-2024 PT Coag (PPP) [Time] Prothrombin time (PT) 9.0- 12.[address] [facility] Comment on above: A hematocrit value g reater than 55% may lead to inaccurate results in coagulation testing. Patients having hematocrit values >55% require a special collection tube for coagulation studies. Please contact the laboratory at [phone] for redraw instructions. RBC Auto (Bld) [#/Vol]Ordere d By: Everett Valdez on 12-16-2024 RBC (Bld) [#/Vol] Erythrocytes [#/volume] in Blood by Automated count 3.60-5.[address] [facility] RPR w/rfx to Quant TP Abson 12-16-2024 RPR, Rfx Quant RPR Non-Reactive Normal Non Reactive Th e [facility] Comment on above: Result Comment: Perf ormed at: [facility] [address] [id number] Casing Material Weigher: Erick Neville PhD, Phone: [phone] PERFORMED BY: [address] [place] [id number] PATHOLOGIST TECHNICAL TRAINER PAZ RUTHERFORD M.D. Performed By: #### P P #### [facility] [address] [place] [address] [place] #### LUPANTCOAG #### [facility] , Screening dilute Jamie's v iper venom time (DRVVT) with reflex to confirmatory testOrdered By: Everett Valdez on 12-16-2024 dRVVT Coag (PPP) [Time] Screening dilute Jamie's viper venom time (DRVVT) with reflex to confirmatory test 0.0-47.[address] [facility] Screening lupus anticoagulan t-sensitive activated partial thromboplastin time (aPTT)Ordered By: Everett Valdez on 12-16-2024 aPTT.lupus sensitive Coag (PPP) [Time] Screening lupus anticoagulant-sensitiv e activated partial thromboplastin time (aPTT) 0.0-43.[address] [facility] Serum RPR testOrdered By: Dori Valdez on 12-16-2024 Reagin Ab RPR Ql (S) Reagin Ab [Presence ] in Serum by RPR Non Reactive [facility] Comment on above: Performed at: [facility] [address] [id number] Director: Erick Neville PhD, Phone: [phone] Serum aldolase measurementOr dered By: Everett Valdez on 12-16-2024 Aldolase 13.5 U/L High 3.3-10.[address] [facility] Comment on above: Performed at: [facility] [id number] [place], [place] [id number] Director: Erick Neville PhD, Phone: [phone] Result Comment: Perf ormed at: Whatever - [facility] [place] [id number] [place], [place] [id number] Casing Material Weigher: Erick Neville PhD, Phone: [phone] PERFORMED BY: [place] [address] PATHOLOGIST TECHNICAL TRAINER PAZ RUTHERFORD M.D. Performed By: #### P P #### [address] #### LUPANTCOAG #### [facility] , Serum globulin measurement ( mass/volume)Ordered By: Everett Valdez on 12-16-2024 Globulin (S) [Mass/Vol] Serum globulin measurement (mass/volume) 2.2-3.[address] [facility] Serum homogeneous pattern an tinuclear antibody (CHUYITA) titerOrdered By: Everett Valdez on 12-16-2024 Homogenous nuclear Ab pattern (S) [Titer] Serum homogeneous pattern antinuclear antibody (CHUYITA) titer [facility] Serum immunofixation electro phoresisOrdered By: Everett Valdez on 12-16-2024 Serum Immunofixation Comment . [facility] Comment on above: No monoclonality det ected. Serum nuclear antibody titer Ordered By: Everett Valdez on 12-16-2024 Nuclear Ab (S) [Titer] Serum nuclear antibody titer . [facility] Comment on above: Negative <1:80 Borde rline 1:80 Positive >1:80ICAP nomenclature: [id number] more information about Hep-2 cell patterns useANApatterns.org, the official website for theInternational Consensus on Antinuclear Antibody (CHUYITA)Patterns (ICAP).Performed at: [email or web address] [address] [id number] Director: Erick Neville PhD, Phone: [phone] Serum or plasma IgA measurem ent (mass/volume)Ordered By: Everett Valdez on 12-16-2024 IgA [Mass/Vol] IgA [Mass/volume] in Serum or Plasma 87-[address] [facility] Serum or plasma IgG measurem ent (mass/volume)Ordered By: Everett Valdez on 12-16-2024 IgG [Mass/Vol] IgG [Mass/volume] in Serum or Plasma [id number] [facility] Serum or plasma IgM measurem ent (mass/volume)Ordered By: Everett Valdez on 12-16-2024 IgM [Mass/Vol] IgM [Mass/volume] in Serum or Plasma 26-[address] [facility] Comment on above: Performed at: [employer] [facility] [address] [id number] Director: Erick Neville PhD, Phone: [phone] Serum or plasma albumin ravinder urement (mass/volume)Ordered By: Everett Valdez on 12-16-2024 Albumin [Mass/Vol] Albumin [Mass/volume ] in Serum or Plasma 2.9-4.[address] [facility] Serum or plasma albumin/glob ulin mass ratioOrdered By: Everett Valdez on 12-16-2024 Albumin/Globulin [Mass ratio] Serum or plasma albumin/globulin mass ratio 0.7-1.[address] [facility] Serum or plasma alpha 1 glob ulin measurement by electrophoresis (mass/volume)Ordered By: Everett Valdez on 12-16-2024 Alpha 1 globulin Elph [Mass/Vol] Serum or plasma alpha 1 globulin measurement by electrophoresis (mass/volume) 0.0-0.[address] [facility] Serum or plasma alpha 2 glob ulin measurement by electrophoresis (mass/volume)Ordered By: Everett Valdez on 12-16-2024 Alpha 2 globulin Elph [Mass/Vol] Serum or plasma alpha 2 globulin measurement by electrophoresis (mass/volume) 0.4-1.[address] [facility] Serum or plasma anion gap de terminationOrdered By: Everett Valdez on 12-16-2024 Anion gap [Moles/Vol] Serum or plasma an ion gap determination 6.0-15.[address] [facility] Serum or plasma beta globuli n measurement by electrophoresis (mass/volume)Ordered By: Everett Valdez on 12-16-2024 Beta globulin Elph [Mass/Vol] Serum or plasma beta globulin measurement by electrophoresis (mass/volume) 0.7-1.[address] [facility] Serum or plasma chromatin an tibody assay (units/volume)Ordered By: Everett Valdez on 12-16-2024 Chromatin Ab Qn Serum or plasma chromatin antibody assay (units/volume) 0.0-0.[address] [facility] Comment on above: Performed at: [address] [id number] Director: Erick Neville PhD, Phone: [phone] Serum or plasma complement C 3 measurement (mass/volume)Ordered By: Everett Valdez on 12-16-2024 Complement C3 [Mass/Vol] Serum or plasma complement C3 measurement (mass/volume) 82-[address] [facility] Comment on above: Performed at: [facility] [address] [id number] Director: Erick Neville PhD, Phone: [phone] Serum or plasma complement C 4 measurement (mass/volume)Ordered By: Everett Valdez on 12-16-2024 Complement C4 [Mass/Vol] Serum or plasma complement C4 measurement (mass/volume) 12-[address] [facility] Serum or plasma gamma globul in measurement by electrophoresis (mass/volume)Ordered By: Everett Valdez on 12-16-2024 Gamma globulin Elph [Mass/Vol] Serum or plasma gamma globulin measurement by electrophoresis (mass/volume) 0.4-1.[address] [facility] Serum or plasma thyroglobuli n antibody assay (units/volume)Ordered By: Everett Valdez on 12-16-2024 Thyroglobulin Ab Qn Serum or plasma thyroglobulin antibody assay (units/volume) 0.0-0.[address] [facility] Comment on above: Thyroglobulin Antibo dy measured by ZeptorMethodologyIt should be noted that the presence of thyroglobulinantibodies may not be pathogenic nor diagnostic, especiallyat very low levels. The assay oven heater has found thatfour percent of individuals without evidence of thyroiddisease or autoimmunity will have positive TgAb levels upto 4 IU/mL.Performed at: [facility] [address] [id number] Director: Erick Neville PhD, Phone: [phone] Serum or plasma thyroperoxid ase antibody assay (units/volume)Ordered By: Everett Valdez on 12-16-2024 TPO Ab Qn Serum or plasma thyroperoxidase antibody assay (units/volume) 0-[address] [facility] Comment on above: Performed at: [facility] [address] [id number] Director: Erick Neville PhD, Phone: [phone] Sodium [Moles/volume] in Ser um or PlasmaOrdered By: Everett Valdez on 12-16-2024 Sodium [Moles/Vol] Sodium [Moles/volume ] in Serum or Plasma 136-[address] [facility] Specific gravity Test strip (U) [Rel density]Ordered By: Everett Valdez on 12-16-2024 Specific gravity (U) [Rel density] Specific gravity of Urine by Test strip 1.001-1.[address] [facility] Thyroid Peroxidase Antibodie son 12-16-2024 Thyroid Peroxidase Antibodies 10 [IU]/mL Normal 0-34 [facility] Comment on above: Result Comment: Perf ormed at: - [facility] [address] [id number] Casing Material Weigher: Erick Neville PhD, Phone: [phone] Performed By: #### P P #### [facility] [address] [place] [address] #### LUPANTCOAG #### [facility] , Thyroid Stimulating Hormoneo n 12-16-2024 TSH Qn 1.48 m[IU]/L Normal 0.45-5.33 The [facility] Comment on above: Result Comment: PERF ORMED BY: [place] [address] PATHOLOGIST TECHNICAL TRAINER PAZ RUTHERFORD M.D. Performed By: #### E SR, TSH3, CK, ADDONUAPLUS, CBC, CRP, CMP, T4F #### [facility] [address] [place] [address] [place] #### RPR W RFX, ALDOLASE, GUZMAN,URINE, UPE RAND #### [facility] , Thyrotropin [Units/volume] i n Serum or PlasmaOrdered By: Everett Valdez on 12-16-2024 TSH Qn Thyrotropin [Units/volume] in Serum or Plasma 0.45-5.[address] [facility] Thyroxine (T4) free [Mass/vo lume] in Serum or PlasmaOrdered By: Everett Valdez on 12-16-2024 Free T4 [Mass/Vol] Thyroxine (T4) free [Mass/volume] in Serum or Plasma 0.61-1.[address] [facility] Total hemolytic complement C H50 assayOrdered By: Everett Valdez on 12-16-2024 Total Complement (CH50) >60 U/mL >[address] [facility] Comment on above: Age Male Female 3 [...] to determine out of range values.Performed at: [facility] [id number] Director: Erick Neville PhD, Phone: [phone] Urea nitrogen [Mass/volume] in Serum or PlasmaOrdered By: Everett Valdez on 12-16-2024 Urea nitrogen [Mass/Vol] Urea nitrogen [Mass/volume] in Serum or Plasma 05-[address] [facility] Urine alpha 1 globulin/total protein by electrophoresisOrdered By: Everett Valdez on 12-16-2024 Alpha 1 globulin Elph (U) [Mass fraction] Urine alpha 1 globulin/total protein by electrophoresis . [facility] Urine alpha 2 globulin/total protein ratio by electrophoresisOrdered By: Everett Valdez on 12-16-2024 Alpha 2 globulin Elph (U) [Mass fraction] Urine alpha 2 globulin/total protein ratio by electrophoresis . [facility] Urine beta globulin measurem ent by electrophoresis (mass/volume)Ordered By: Everett Valdez on 12-16-2024 Beta globulin Elph (U) [Mass/Vol] Urine beta globulin measurement by electrophoresis (mass/volume) . [facility] Urine protein measurement (m ass/volume)Ordered By: Everett Valdez on 12-16-2024 Protein (U) [Mass/Vol] Protein [Mass/volume] in Urine Not Estab. [facility] Urobilinogen Test strip (U) [Mass/Vol]Ordered By: Everett Valdez on 12-16-2024 Urobilinogen (U) [Mass/Vol] Urobilinogen [Mass/volume] in Urine by Test strip Normal [facility] WBC Auto (Bld) [#/Vol]Ordere d By: Everett Valdez on 12-16-2024 WBC (Bld) [#/Vol] Leukocytes [#/volume ] in Blood by Automated count 3.8-11.[address] [facility] aPTT in Platelet poor plasma by Coagulation assayOrdered By: Everett Valdez on 12-16-2024 aPTT Coag (PPP) [Time] Activated partial thromboplastin time (aPTT) in platelet poor plasma by coagulation a 25.1-36.[address] [facility] Comment on above: A hematocrit value g reater than 55% may lead to inaccurate results in coagulation testing. Patients having hematocrit values >55% require a special collection tube for coagulation studies. Please contact the laboratory at [phone] for redraw instructions. aPTT.lupus sensitive/aPTT.hattie pus sensitive W excess phospholipid (screen to confirm raOrdered By: Everett Valdez on 12-16-2024 aPTT.lupus sensitive/aPTT.lupus sensitive W excess phospholipid Coag (PPP) [Ratio] aPTT.lupus sensitive/aPTT.lupus sensitive W excess phospholipid (screen to confirm ra 0.00-1.[address] [facility] pH Test strip (U)Ordered By: Everett Valdez on 12-16-2024 pH (U) pH of Urine by Test strip 5.0-9.[address] [facility] HBV surface Ab IA Qnon 12-11 Anti HBs quant. >500.00 Normal [facility] Comment on above: Result Comment: NOTE Vaccinated: >=10.00 mIU/mL, Positive (Immune) Unvaccinated: <10.00 mIU/mL, Negative (Not Immune) Interpretive values have changed due to implementation of a new method. Values run higher than previous method. Performed By: #### 3 5275-7, 26390-1, 8014-3, 5193-8, 6476-6 #### [facility] ([id number]) [address], [address] [place] [address] MeV IgG IA Ql (S)on 12-11-19 RUBEOLA AB SCREEN 4.1 AI High <0.9 [facility] Comment on above: Result Comment: POSI TIVE: Antibody(IgG) detected. Indicates previous exposure to rubeola virus and immunity. Performed By: #### 3 5275-7, 90712-2, 8014-3, 5193-8, 6476-6 #### [facility] ([id number]) [address] [place] [address], [address] [place] [address] MuV IgG IA Ql (S)on 12-11-19 25 MUMPS VIRUS IgG 2.1 AI High <0.9 [facility] Comment on above: Result Comment: Interpretation-------- <0.9 Negative 0.9 - 1.0 Equivocal >1.0 Positive Performed By: #### 3 5275-7, 40137-5, 8014-3, 5193-8, 6476-6 #### [facility] ([id number]) [address] [place] [address], [address] [place] [address] Rubella virus IgG Qn (S)on 0 12-11-2024 RUBELLA IgG 19 IU/mL Normal [facility] Comment on above: Result Comment: Interpretation-------- <8 NEGATIVE-considered Not Immune 8-9 EQUIVOCAL-consider retesting with new specimen >9 POSITIVE-considered Immune Performed By: #### 3 5275-7, 17869-9, 8014-3, 5193-8, 6476-6 #### [facility] ([id number]) [address] [place] [address], [address] [place] [address] VZV IgG IA Ql (S)on 12-11-19 25 VARICELLA IgG >8.0 High <0.9 [facility] Comment on above: Result Comment: Interpretation-------- <0.9 Negative 0.9 - 1.0 Equivocal >1.0 Positive Performed By: #### 3 5275-7, 41920-9, 8014-3, 5193-8, 6476-6 #### [facility] ([id number]) [address] [place] [address], [address] [place] [address] X-ray reportOrdered By: Brett Bullard on 11-20-2024 Study report [address] [address] XRay Report Signed Patient: Mary Leal MR#: [id number] : 1970 Acct:[id number] Age/Sex: 54 / F ADM Date: Loc: XD Room: Type: [facility] Attending Dr: Anibal Medrano DO Copies to: [...] Andres Bullard M.D.11/20/2024 10:02 PM Dictation Location: [place] [address] Transcribed By: [facility] 11/20/242201 Dictated By: Andres Bullard DO 11/20/242158 Signed By: 11/20/242201 [facility] XR shoulder BI min 2Von 11-06 XR shoulder BI min 2V [address] [address] XRay Report Signed Patient: Mary Leal MR#: [id number] : 1970 Acct:[id number] Age/Sex: 54 / F ADM Date: 11/20/24 Loc: XD Room: [facility] Att[facility] Dr: Anibal Medrano DO Copies to: [...] Andres Bullard M.D.11/20/2024 10:02 PM Dictation Location: [place] [address] Transcribed By: [facility] 11/20/242201 Dictated By: Andres Bullard DO 11/20/242158 Signed By: 11/20/242201 Normal [facility] NM gastric emptying studyon 11-14-2024 NM gastric emptying study [facility] [address] Nuclear Medicine Report Signed Patient: Mary Leal MR#: [id number] : 1970 Acct:[id number] Age/Sex: 54 / F ADM Date: 11/14/24 Loc: NM Room: [facility]: Padmaja Llamas MD Copies to: [...] gastroparesis. Impression dictated by: Quinton Melendez Jr., D.OReno11/14/2024 1:54 PM Dictation Location: [facility]19 Transcribed By: [facility] 11/14/24 1354 Dictated By: Quinton Melendez Jr, DO 11/14/24 135 Signed By: 11/14/24 135 Normal [facility] Basic Metabolic Panelon 10-06 Anion gap [Moles/Vol] 9.4 mmol/L Normal 6.0-15.0 [facility] Comment on above: Performed By: #### B MP #### [address] Calcium [Mass/Vol] 9.0 mg/dL Normal 8.6-10.3 [facility] Comment on above: Performed By: #### B MP #### [address] Chloride [Moles/Vol] 107 mmol/L Normal 98-107 [facility] Comment on above: Performed By: #### B MP #### [address] CO2 [Moles/Vol] 27.3 mmol/L Normal 21.0-31.0 [facility] Comment on above: Performed By: #### B MP #### [address] Creatinine [Mass/Vol] 0.69 mg/dL Normal 0.60-1.20 [facility] Comment on above: Performed By: #### B MP #### [address] Creatinine Clr Calc Pharmacy 91.21 Normal [facility] Comment on above: Result Comment: PERF ORMED BY: [place] [address] PATHOLOGIST TECHNICAL TRAINER PAZ RUTHERFORD M.D. Performed By: #### B MP #### [address] GFR/1.73 sq M.predicted MDRD (S/P/Bld) [Vol rate/Area] mL/min/{1.73_m2} Normal [facility] Comment on above: Performed By: #### B MP #### [address] Glucose [Mass/Vol] 93 mg/dL Normal 70-100 [facility] Comment on above: Result Comment: Vivian Glucose Reference Range is dependent on time and content of last meal. Glucose of more than 200 mg/dL in a nonstressed, ambulatory subject supports the diagnosis of Diabetes Mellitus. ADA recommended reference range Performed By: #### B MP #### [address] Potassium [Moles/Vol] 3.7 mmol/L Normal 3.5-5.1 [facility] Comment on above: Performed By: #### B MP #### [address] Sodium [Moles/Vol] 140 mmol/L Normal 136-145 [facility] Comment on above: Performed By: #### B MP #### [address] Urea nitrogen [Mass/Vol] 14 mg/dL Normal 7-25 [facility] Comment on above: Performed By: #### B MP #### [place] [address] [place] Basophils Auto (Bld) [#/Vol] Ordered By: Cullen Christianson on 10-24-2024 Basophils (Bld) [#/Vol] Automated basophil count 0.0-0.[address] [facility] Basophils/100 WBC Auto (Bld) Ordered By: Cullen Christianson on 10-24-2024 Basophils/100 WBC (Bld) Automated basophil % . [facility] Calcium [Mass/volume] in Ser um or PlasmaOrdered By: Cullen Christianson on 10-24-2024 Calcium [Mass/Vol] Calcium [Mass/volume ] in Serum or Plasma 8.6-10.[address] [facility] Carbon dioxide, total [Moles /volume] in Serum or PlasmaOrdered By: Cullen Christianson on 10-24-2024 CO2 [Moles/Vol] Carbon dioxide, tota l [Moles/volume] in Serum or Plasma 21.0-31.[address] [facility] Chloride [Moles/volume] in S jay or PlasmaOrdered By: Cullen Christianson on 10-24-2024 Chloride [Moles/Vol] Chloride [Moles/volume] in Serum or Plasma 98-[address] [facility] Complete Blood Count Auto Di ffon 10-24-2024 Basophils (Bld) [#/Vol] 0.1 10*3/uL Normal 0.0-0.2 [facility] Comment on above: Result Comment: PERF ORMED BY: [place] [address] PATHOLOGIST TECHNICAL TRAINER PAZ RUTHERFORD M.D. Performed By: #### C BC #### [address] Basophils/100 WBC (Bld) 1.1 % Normal . [facility] Comment on above: Performed By: #### C BC #### [address] Eosinophils (Bld) [#/Vol] 0.2 10*3/uL Normal 0.0-0.45 [facility] Comment on above: Performed By: #### C BC #### [address] Eosinophils/100 WBC (Bld) 3.7 % Normal . [facility] Comment on above: Performed By: #### C BC #### [address] Erythrocyte distribution width (RBC) [Ratio] 13.1 % Normal 11.9-15.3 [facility] Comment on above: Performed By: #### C BC #### [address] Hematocrit (Bld) [Volume fraction] 37.9 % Normal 34.0-46.4 [facility] Comment on above: Performed By: #### C BC #### [facility] [address] Hemoglobin (Bld) [Mass/Vol] 12.8 g/dL Normal 11.8-15.4 [facility] Comment on above: Performed By: #### C BC #### [address] Lymphocytes (Bld) [#/Vol] 1.5 10*3/uL Normal 1.00-4.8 [facility] Comment on above: Performed By: #### C BC #### [address] Lymphocytes/100 WBC (Bld) 29.9 % Normal . [facility] Comment on above: Performed By: #### C BC #### [address] MCH (RBC) [Entitic mass] 28.7 pg Normal 24.7-34.3 [facility] Comment on above: Performed By: #### C BC #### [address] MCV (RBC) [Entitic vol] 85.1 fL Normal 80-100 [facility] Comment on above: Performed By: #### C BC #### [address] Mean Corpuscular HGB Conc 33.8 g/dL Normal 32.0-35.0 [facility] Comment on above: Performed By: #### C BC #### [address] Monocytes (Bld) [#/Vol] 0.4 10*3/uL Normal 0.0-0.8 [facility] Comment on above: Performed By: #### C BC #### [address] Monocytes/100 WBC (Bld) 7.8 % Normal . [facility] Comment on above: Performed By: #### C BC #### [facility] [address] [place] [address] [place] Neutrophils (Bld) [#/Vol] 2.9 10*3/uL Normal 1.8-7.7 [facility] Comment on above: Performed By: #### C BC #### [address] Neutrophils/100 WBC (Bld) 57.5 % Normal . [facility] Comment on above: Performed By: #### C BC #### [facility] [address] NRBC% 0.1 /100{WBC} Normal 0-0.5 [facility] Comment on above: Performed By: #### C BC #### [address] Platelet mean volume (Bld) [Entitic vol] 7.1 fL Normal 6.3-10.7 The [facility] Comment on above: Performed By: #### C BC #### [place] [address] [place] Platelets (Bld) [#/Vol] 307 10*3/uL Normal 150-450 [facility] Comment on above: Performed By: #### C BC #### [address] RBC (Bld) [#/Vol] 4.45 10*6/uL Normal 3.60-5.00 [facility] Comment on above: Performed By: #### C BC #### [address] WBC (Bld) [#/Vol] 5.0 10*3/uL Normal 3.8-11.6 [facility] Comment on above: Performed By: #### C BC #### [address] Creatinine [Mass/volume] in Serum or PlasmaOrdered By: Cullen Christianson on 10-24-2024 Creatinine [Mass/Vol] Creatinine [Mass/volume] in Serum or Plasma 0.60-1.[address] [facility] Eosinophils Auto (Bld) [#/Vo l]Ordered By: Cullen Christianson on 10-24-2024 Eosinophils (Bld) [#/Vol] Automated eosinophil count 0.0-0.[address] [facility] Eosinophils/100 WBC Auto (Bl d)Ordered By: Cullen Christianson on 10-24-2024 Eosinophils/100 WBC (Bld) Automated eosinophil % . [facility] Erythrocyte distribution wid th Auto (RBC) [Ratio]Ordered By: Cullen Christianson on 10-24-2024 Erythrocyte distribution width (RBC) [Ratio] Erythrocyte distribution width [Ratio] by Automated count 11.9-15.[address] [facility] Glucose [Mass/volume] in Ser um or PlasmaOrdered By: Cullen Christianson on 10-24-2024 Glucose [Mass/Vol] Glucose [Mass/volume ] in Serum or Plasma 70-[address] [facility] Comment on above: ADA recommended refe rence rangeRandom Glucose Reference Range is dependent on time and content of last meal. Glucose of more than 200 mg/dL in a nonstressed, ambulatory subject supports the diagnosis of Diabetes Mellitus. Hematocrit Auto (Bld) [Volum e fraction]Ordered By: Cullen Christianson on 10-24-2024 Hematocrit (Bld) [Volume fraction] Hematocrit [Volume Fraction] of Blood by Automated count 34.0-46.[address] [facility] Hemoglobin [Mass/volume] in BloodOrdered By: Cullen Christianson on 10-24-2024 Hemoglobin (Bld) [Mass/Vol] Hemoglobin [Mass/volume] in Blood 11.8-15.[address] [facility] Leukocytes [#/volume] correc herbert for nucleated erythrocytes in Blood by Automated counOrdered By: Cullen Christianson on 10-24-2024 WBC corrected for nucl RBC Auto (Bld) [#/Vol] Leukocytes [#/volume] corrected for nucleated erythrocytes in Blood by Automated coun 3.8-11.[address] [facility] Lymphocytes Auto (Bld) [#/Vo l]Ordered By: Cullen Christianson on 10-24-2024 Lymphocytes (Bld) [#/Vol] Lymphocytes [#/volume] in Blood by Automated count 1.00-4.[address] [facility] Lymphocytes/100 WBC Auto (Bl d)Ordered By: Cullen Christianson on 10-24-2024 Lymphocytes/100 WBC (Bld) Lymphocytes/100 leukocytes in Blood by Automated count . [facility] MCH Auto (RBC) [Entitic mass ]Ordered By: Cullen Christianson on 10-24-2024 MCH (RBC) [Entitic mass] MCH [Entitic mass] by Automated count 24.7-34.[address] [facility] MCHC Auto (RBC) [Mass/Vol]Or dered By: Cullen Christianson on 10-24-2024 MCHC (RBC) [Mass/Vol] MCHC [Mass/volume] by Automated count 32.0-35.[address] [facility] MCV Auto (RBC) [Entitic vol] Ordered By: Cullen Christianson on 10-24-2024 MCV (RBC) [Entitic vol] MCV [Entitic volume] by Automated count 80-[address] [facility] Monocytes Auto (Bld) [#/Vol] Ordered By: Cullen Christianson on 10-24-2024 Monocytes (Bld) [#/Vol] Automated blood monocyte count 0.0-0.[address] [facility] Monocytes/100 WBC Auto (Bld) Ordered By: Cullen Christianson on 10-24-2024 Monocytes/100 WBC (Bld) Automated monocyte % . [facility] Neutrophils Auto (Bld) [#/Vo l]Ordered By: Cullen Christianson on 10-24-2024 Neutrophils (Bld) [#/Vol] Neutrophils [#/volume] in Blood by Automated count 1.8-7.[address] [facility] Neutrophils/100 WBC Auto (Bl d)Ordered By: Cullen Christianson on 10-24-2024 Neutrophils/100 WBC (Bld) Automated neutrophil % . [facility] No Panel InformationOrdered By: Cullen Christianson on 10-24-2024 Estimated GFR (CKD-EPI) > 60.0 mL/Min [facility] Creatinine Clearance (Chem 91.[address] [facility] Nucleated erythrocytes [Pres ence] in Blood by Automated countOrdered By: Cullen Christianson on 10-24-2024 Nucleated RBC Auto Ql (Bld) Nucleated erythrocytes [Presence] in Blood by Automated count 0-0.[address] [facility] Platelet mean volume Auto (B ld) [Entitic vol]Ordered By: Cullen Christianson on 10-24-2024 Platelet mean volume (Bld) [Entitic vol] Platelet mean volume [Entitic volume] in Blood by Automated count 6.3-10.[address] [facility] Platelets Auto (Bld) [#/Vol] Ordered By: Cullen Christianson on 10-24-2024 Platelets (Bld) [#/Vol] Platelets [#/volume] in Blood by Automated count 150-[address] [facility] Potassium [Moles/volume] in Serum or PlasmaOrdered By: Cullen Christianson on 10-24-2024 Potassium [Moles/Vol] Potassium [Moles/volume] in Serum or Plasma 3.5-5.[address] [facility] RBC Auto (Bld) [#/Vol]Ordere d By: Cullen Christianson on 10-24-2024 RBC (Bld) [#/Vol] Erythrocytes [#/volume] in Blood by Automated count 3.60-5.[address] [facility] Serum or plasma anion gap de terminationOrdered By: Cullen Christianson on 10-24-2024 Anion gap [Moles/Vol] Serum or plasma an ion gap determination 6.0-15.[address] [facility] Sodium [Moles/volume] in Ser um or PlasmaOrdered By: Cullen Christianson on 10-24-2024 Sodium [Moles/Vol] Sodium [Moles/volume ] in Serum or Plasma 136-[address] [facility] Urea nitrogen [Mass/volume] in Serum or PlasmaOrdered By: Cullen Christianson on 10-24-2024 Urea nitrogen [Mass/Vol] Urea nitrogen [Mass/volume] in Serum or Plasma 7-[address] [facility] WBC Auto (Bld) [#/Vol]Ordere d By: Cullen Christianson on 10-24-2024 WBC (Bld) [#/Vol] Leukocytes [#/volume ] in Blood by Automated count 3.8-11.[address] [facility] Boyd 10-23-2024 L -- ---- Specimen: [id number] Received: 10/24/24 Status: CASEY Teemateo Num: [id number] Spec Type: Surgical Subm Dr: Dipti Acevedo DO Tissues: A Vaginal mucosa-other than incidental (GRANULATION TISSUE) Procedures: ASHLEIGH Gross/Micro L4 ---- Age/ Patient Sex Location Account Attending Physician ---- Mary Leal 54/F ID [id number] Dipti Acevedo DO ---- SPEC NUM: [id number] RECD: 10/24/24 STATUS: CASEY ZEINA NUM: [id number] BOAZ: 10/23/24- SUBM DR: Dipti Acevedo DO ENTERED: 10/24/24 KG EWING TYPE: Surgical DEPT: S ENTERED BY: [id number] RECV BY: [id number] ORDERED: ASHLEIGH, Gross/Micro L4 ORDERED: ASHLEIGH Gross/Micro L4 Pathological [...] submitted in a single cassette. (1, ns, [id number]) LES ---- Specimen: [id number] Received: 10/24/24 Status: CASEY Zeina Num: [id number] Spec Type: Surgical Subm Dr: Dipti Acevedo DO Tissues: A Vaginal mucosa-other than incidental (GRANULATION TISSUE) Procedures: Praneeth SOTELO/Nadja L4 ---- Patient: Mary Leal [id number] (Continued) ---- Specimen: [id number] Received: 10/24/24 (Continued) Signed (signature on file) Kiara Velsaco MD 10/26/24 1126 ---- Specimen: [id number] Received: 10/24/24 Status: CASEY Zeina Num: [id number] Spec Type: Surgical Subm Dr: Dipti Acevedo, Tissues: A Vaginal mucosa-other than incidental (GRANULATION TISSUE) Procedures: Praneeth SOTELO/Nadja L4 ---- Patient: Mary Leal [id number] (Continued) ---- Specimen: [id number] Received: 10/24/24 (Continued) Microscopic Description Microscopic examinations are performed supporting the above interpretation CPT Codes 11092 ---- ---- Specimen: [id number] Received: 10/24/24 Status: ARNOLDOCarey Pastrana Num: [id number] Spec Type: Surgical Subm Dr: Dipti Acevedo DO Tissues: A Vaginal mucosa-other than incidental (GRANULATION TISSUE) Procedures: Praneeth SOTELO/Nadja L4 ---- Patient: Mary Leal [id number] (Continued) ---- Signed (signature on file) Kiara Velasco MD 10/26/24 1126 Normal [facility] MR cervical spine wo raymondon 1 12-11-2023 MR cervical spine wo con [address] [address] MRI Report Signed Patient: Mary Leal MR#: [id number] : 1970 Acct:[id number] Age/Sex: 54 / F ADM Date: 10/10/24 Loc: [facility] Room: Type: [facility] CLI Attending Dr: Anibal Medrano DO [...] Rajiv Garcia M.D.10/10/2024 3:47 PM Dictation Location: [place] [address] Transcribed By: [facility] 10/10/24 154 Dictated By: Rajiv Garcia II, MD 10/10/24 154 Signed By: 10/10/24 154 Normal [facility] MR lumbar spine wo conon MR lumbar spine wo con [facility] [address] MRI Report Signed Patient: Mary Leal MR#: [id number] 863 : 1970 Acct:[id number] Age/Sex: 54 / F ADM Date: 10/10/24 Loc: [facility] Room: Type: [facility] Attending Dr: Monica IBARRA Copies to: FRED [...] No significant interval change. Impression dictated by: Raijv Garcia M.D.10/10/2024 3:55 PM Dictation Location: [place] [address] Transcribed By: [facility] 10/10/24 1555 Dictated By: Rajiv Garcia II, MD 10/10/24 1547 Signed By: 10/10/24 1555 Normal [facility] XR pre/post mri xrayon 10-10 XR pre/post mri xray [facility] [place] [address] XRay Report Signed Patient: Mary Leal MR#: [id number] 863 : 1970 Acct:[id number] Age/Sex: 54 / F ADM Date: 10/10/24 Loc: [facility] Room: Type: [facility] Attending Dr: Anibal Medrano DO Copies to: [...] Rajiv Garcia M.D.10/10/2024 3:58 PM Dictation Location: [facility]--17 Transcribed By: [facility] 10/10/241557 Dictated By: Rajiv Garcia II, MD 10/10/241554 Signed By: 10/10/241557 Normal [facility] Urinalysis macro (dipstick) panel (U)on 09-04-2024 Bilirubin, UA Negative Negative - 4(70) +++ mg/dL [facility] Blood, UA Negative Negative - 50 Devin/mcL [facility] Clarity, UA Clear [facility] Color, UA Yellow [facility] Glucose, UA Negative Negative - 2000(110) ++++ mg/dL [facility] Ketones, UA Negative Negative - 160(16) ++++ mg/dL [facility] Leukocytes, UA Negative Negative - 500+++ Aicha/mcL [facility] Nitrite, UA Negative Negative - Positive [facility] pH, UA 5 5 - 9 [facility] Protein, UA Negative Negative - 2000(20) ++++ mg/dL [facility] Spec Grav, UA 1.01 1 - 1.03 [facility] Urobilinogen, UA 0.2 0.2 - 12 mg/dL Count includes the [facility] US ABDOMEN LIMITEDon 024 US [...] report is generated using voice recognition reporting (TRIA Beauty). On occasion Notable Limitedcribe erroneously drops words from the report or replaces the spoken word with similar sounding words. Please call with any questions/concerns regarding this report.* Dictated and transcribed 08/28/2024/tm This report has been electronically signed and approved by the interpreting radiologist. Electronically Signed Dipti Lockhart II, M.D. 2024-08-28 16:38:48 Normal Not Available Follow-Upon 07-26-2024 Follow-Up [id number] Darrian Leal 1970 F Date Provider Department Center 07/26/2024 PAULINE SANTACRUZ [facility] SLEEP [facility] No family history on file Level of Service:31072 [place] OFFICE/OUTPATIENT ESTABLISHED MOD MDM 30 MIN Reason for Visit and Comments: Follow-up [869074] - Inspire initiation Normal [facility] US ABDOMEN LIMITEDon 024 US ABDOMEN [...] report is generated using voice recognition reporting (TRIA Beauty). On occasion PowerScribe erroneously drops words from [...] appointment to 07/26 at 10:00 am. Normal [facility] Telephoneon 07-12-2024 Telephone [id number] Darrian Leal 1970 F Date Provider Department Center 07/12/2024 ChiaraABBE PAULINE [facility] SLEEP [facility] No family history on file Reason for Visit and Comments: Reschedule [709] Normal [facility] 36on 06-17-2024 36 Rescheduled cancelle d Inspire follow up appointment for 06/26 at 9:00 am. Normal [facility] Boyd 05-27-2024 L Specimen: [id number] Received: 05/28/24 Status: CASEY Pastrana Num: [id number] Spec Type: Surgical Subm Dr: Sade Felix DPM, MS Tissues: A Gross Only (CALCANEOUS GRAFT) Procedures: Level 1 Gross Age/ Patient Sex Location Account Attending Physician Mary Leal 54/F LABELL [id number] Sade Felix DPM, MS SPEC NUM: [id number] RECD: 05/28/24 STATUS: CASEY PASTRANA NUM: [id number] BOAZ: 05/27/24-[address]: Sade Felix DPM, MS ENTERED: 05/28/24-[address]: Yoan Collins SPEC TYPE: Surgical DEPT: JENNA KELLEY ORDERED: [...] inscription is identified on the device 2019 [id number] . Gross photos are included. The specimen is for gross only examination. CPT Codes 61936 DEVICE DEVICE ---- ---- Specimen: [id number] Received: 05/28/24 Status: CASEY Pastrana Num: [id number] Spec Type: Surgical Subm Dr: Sade Felix,DPM, MS Tissues: A Gross Only (CALCANEOUS GRAFT) Procedures: Level 1 Gross ---- Patient: ElvisMary [id number] (Continued) ---- Signed (signature on file) Paz Rutherford MD 06/19/24 1554 Normal [facility] MR ankle RT wo [facility] 04-30-2 024 [place] [address] MRI Report Signed Patient: Mary Leal MR#: [id number] 863 : 1970 Acct:[id number] Age/Sex: 54 / F ADM Date: 04/30/24 Loc: [facility] Room: Type: [facility] Attending Dr: Sade Felix DPM, MS [...] Andres Bullard M.D.04/30/2024 3:14 PM Dictation Location: [place] [address] Transcribed By: [facility] 04/30/24 1514 Dictated By: Andres Bullard DO 04/30/24 1503 Signed By: 04/30/24 1514 Normal [facility] 29on 04-28-2024 29 Encounter addended b y: Dick Mann MD on: 05/07/2024 7:26 PM Actions taken: Charge Capture section accepted [facility] Documentationon 04-17-2024 Documentation [id number] Darrian Leal en 1970 F Date Provider Department [place] 04/17/2024 [id number] CASTREJON [facility] No family history on file [facility] Letter (Out)on 04-17-2024 Letter (Out) [id number] Darrian Leal en 1970 F Date Provider Department [place] 04/17/2024 [id number]-VZMWRADHA COVARRUBIAS [facility] No family history on file [facility] DIAGNOSTIC UPPER ENDOSCOPYon 04-12-2024 [facility] Patient Name: Mary Leal Procedure Date: 04/12/2024 11:46 AM Date of : 1970 Admit Type: Outpatient Age: 53 Room: [facility] 3 Gender: Female Note Status: Finalized Attending MD: Milagros Franco MD, PHD, [id number] Procedure: Upper GI endoscopy Attending Participation: I personally performed the entire procedure. Indications: Dysphagia, Heartburn Providers: Milagros Franco MD, PHD (Doctor), Stacie Johns RN (Nurse), Nawaf Pinzon, Copy Manager (Copy Manager), Everett Maria APRN-BECCA (Anesthesia Staff) Referring MD: [...] verified by the physician, the nurse, the chucking lathe operator and the automotive service technician in the procedure room. Mental Status [...] oxygen saturations were monitored continuously. The Endoscope ([id number]) was introduced through the mouth, and advanced [...] examined (more content not included)... LAB, [facility] Radiology Study observation (narrative) [facility] SURG PATH REQUESTon 04-12-20 24 Case Report [facility] Comment on above: Result Comment: Surg ical Pathology Report Case: [id number] Authorizing Provider: Milagros Franco MD, Collected: 04/12/2024 12:48 PM PhD Ordering Location: Endoscopy Outpatient Care Received: 04/12/2024 12:57 PM [place] Pathologist: Manish Tom MD Specimens: A) - TISSUE, gastric biopsy r/o HP evaluate for eosiniphils (large forceps) B) - TISSUE, GE Junction r/o Barrets (large forceps) Performed By: #### S URGP #### [facility] (DEFAULT) [address] [place] [address] Clinical History Preop Diagnosis: Blackford Grade D esophagitis [K20.80]. Early satiety [R68.81]. Unintentional weight loss [R63.4]. Gastroparesis [K31.84]. Medical History: Gastroesophageal reflux disease. Asthma. Benign essential hypertension. History of colectomy. Gastroparesis. Arthritis. Depression. Migraine. Constipation. Normal [facility] Comment on above: Performed By: #### S URGP #### [facility] (DEFAULT) [address] [place] [address] Gross Description Normal [facility] Comment on above: [...] dimension. TE 1 Lab Use Only: JobID [id number] Grosser for this case was: Carmen Maradiaga Performed By: #### S URGP #### [facility] (DEFAULT) [address] [place] [address] Microscopic Description A microscopic examination was performed. [facility] Comment on above: Performed By: #### S URGP #### [facility] (DEFAULT) [address] [place] [address] Pathologic Diagnosis Normal [facility] Comment on above: Result Comment: A. S tomach, biopsy: Active erosive esophagitis. No Helicobacter pylori organisms identified. B. GE junction, biopsy: Gastroesophageal squamocolumnar junctional mucosa with reflux pattern of injury. No Vega's specialized columnar epithelium (intestinal metaplasia) identified. Performed By: #### S URGP #### [facility] (DEFAULT) [address] [address] Professional Interpretation Performed at: [facility] Comment on above: Result Comment: [facility] For Immediate Release [facility] Yes [address] [place] [address] Performed By: #### S URGP #### [facility] (DEFAULT) [address] [place] [address] 36on 04-10-2024 36 Left voicemail to [facility] to schedule Inspire follow up appointment following sleep study on 04/28. Offered 06/05 at 8:30 am or 4:00 pm OR 06/12 at 8:30 am. [facility] Telephoneon 04-10-2024 Telephone [id number] Darrian Leal en 1970 F Date Provider Department Center 04/10/2024 PAULINE SANTACRUZ [facility] SLEEP [facility] No family history on file Reason for Visit and Comments: Appointment [375] [facility] Follow-Upon 04-03-2024 Follow-Up [id number] Darrian Leal en 1970 F Date Provider Department Center 04/03/2024 PAULINE SANTACRUZ [facility] SLEEP [facility] No family history on file Level of Service:05524 [place] OFFICE/OUTPATIENT ESTABLISHED MOD MDM 30 MIN Reason for Visit and Comments: Follow-up [262694] - Pt has the Inspire and is here for a follow up. She states it is unbelievable how well it is working for her. She is sleeping through the night, which she hasn't done for years. She is here for a few small adjustments, such as moving it from 6 hours of sleep a night to 8. Normal [facility] CBC AND ELECTRONIC DIFFon Basophils (Bld) [#/Vol] 0.04 10*3/uL Normal 0.00-0.15 [facility] Comment on above: Performed By: #### L AB980 #### [facility] (DEFAULT) [address] [address] Basophils/100 WBC (Bld) 0.6 % Normal [facility] Comment on above: Performed By: #### L AB980 #### [facility] (DEFAULT) [address] [address] DIFF STATUS Electronic Differential Normal [facility] Comment on above: Performed By: #### L AB980 #### [facility] (DEFAULT) [address] [address] Eosinophils (Bld) [#/Vol] 0.08 10*3/uL Normal 0.00-0.42 [facility] Comment on above: Performed By: #### L AB980 #### [facility] (DEFAULT) [address] [address] Eosinophils/100 WBC (Bld) 1.2 % Normal [facility] Comment on above: Performed By: #### L AB980 #### [facility] (DEFAULT) [address] [address] Hematocrit (Bld) [Volume fraction] 40.1 % Normal 34.9-44.3 [facility] Comment on above: Performed By: #### L AB980 #### [facility] (DEFAULT) [address] [place] [address] Hemoglobin (Bld) [Mass/Vol] 12.6 g/dL Normal 11.4-15.2 [facility] Comment on above: Performed By: #### L AB980 #### [facility] (DEFAULT) [address] [address] Immature Grans % 0.5 % Normal [facility] Comment on above: Performed By: #### L AB980 #### [facility] (DEFAULT) [address] [address] Immature Grans Absolute < Normal <=0.08 [facility] Comment on above: Performed By: #### L AB980 #### [facility] (DEFAULT) [address] [address] Lymphocytes (Bld) [#/Vol] 2.05 10*3/uL Normal 1.16-3.51 [facility] Comment on above: Performed By: #### L AB980 #### [facility] (DEFAULT) [address] [address] Lymphocytes/100 WBC (Bld) 31.6 % Normal [facility] Comment on above: Performed By: #### L AB980 #### [facility] (DEFAULT) [address] [address] MCV (RBC) [Entitic vol] 86.6 fL Normal 79.6-97.7 [facility] Comment on above: Performed By: #### L AB980 #### [facility] (DEFAULT) [address] [address] Mean Cell Hgb 27.2 pg Normal 25.9-33.9 [facility] Comment on above: Performed By: #### L AB980 #### [facility] (DEFAULT) [address] [address] Mean Cell Hgb Conc 31.4 g/dL Normal 31.4-35.9 [facility] Comment on above: Performed By: #### L AB980 #### [facility] (DEFAULT) [address] [place] [address] Monocytes (Bld) [#/Vol] 0.47 10*3/uL Normal 0.22-0.87 [facility] Comment on above: Performed By: #### L AB980 #### [facility] (DEFAULT) [address] [place] [address] Monocytes/100 WBC (Bld) 7.3 % Normal [facility] Comment on above: Performed By: #### L AB980 #### [facility] (DEFAULT) [address] [place] [address] Nucleated RBC 0.0 /100 WBC Normal <=0.[address] [facility] Comment on above: Performed By: #### L AB980 #### [facility] (DEFAULT) [address] [place] [address] Platelet mean volume (Bld) [Entitic vol] 9.3 fL Normal 8.5-12.2 [facility] Comment on above: Performed By: #### L AB980 #### [facility] (DEFAULT) [address] [place] [address] Platelets (Bld) [#/Vol] 370 10*3/uL Normal 150-393 [facility] Comment on above: Performed By: #### L AB980 #### [facility] (DEFAULT) [address] [place] [address] RBC (Bld) [#/Vol] 4.63 10*6/uL Normal 3.91-5.04 [facility] Comment on above: Performed By: #### L AB980 #### [facility] (DEFAULT) [address] [place] [address] RBC Distribution 14.0 % Normal 10.8-14.9 [facility] Comment on above: Performed By: #### L AB980 #### [facility] (DEFAULT) [address] [place] [address] Segs + Bands Auto 58.8 % Normal [facility] Comment on above: Performed By: #### L AB980 #### [facility] (DEFAULT) [address] [place] [address] Segs + Bands,Absolute Auto 3.81 K/uL Normal 1.64-7.28 [facility] Comment on above: Performed By: #### L AB980 #### [facility] (DEFAULT) [address] [place] [address] WBC (Bld) [#/Vol] 6.48 10*3/uL Normal 3.99-11.19 [facility] Comment on above: Performed By: #### L AB980 #### [facility] (DEFAULT) [address] [address] FERRITINon 03-06-2024 Ferritin [Mass/Vol] 9.1 ng/mL Normal 7.3-270.7 [facility] Comment on above: Performed By: #### F ERIB, TSHQR #### [facility] (DEFAULT) [address] [address] HEPATIC FUNCTION PANELon Albumin [Mass/Vol] 4.3 g/dL Normal 3.5-5.0 [facility] Comment on above: Performed By: #### H , IRBC #### [facility] (DEFAULT) [address] [place] [address] ALP [Catalytic activity/Vol] 87 U/L Normal 32-126 [facility] Comment on above: Performed By: #### H FP, IRBC #### [facility] (DEFAULT) [address] [place] [address] ALT [Catalytic activity/Vol] 28 U/L Normal 9-48 [facility] Comment on above: Performed By: #### H PAULO, IRBC #### [facility] (DEFAULT) [address] [place] [address] AST [Catalytic activity/Vol] 27 U/L Normal 10-39 [facility] Comment on above: Performed By: #### H PAULO, IRBC #### [facility] (DEFAULT) [address] [place] [address] Bilirubin [Mass/Vol] 0.4 mg/dL Normal <1.5 [facility] Comment on above: Performed By: #### H PAULO, IRBC #### [facility] (DEFAULT) [address] [place] [address] Bilirubin.indirect [Mass/Vol] 0.1 mg/dL Normal <0.3 [facility] Comment on above: Performed By: #### H PAULO, IRBC #### [facility] (DEFAULT) [address] [place] [address] Protein [Mass/Vol] 6.9 g/dL Normal 6.4-8.3 [facility] Comment on above: Performed By: #### H PAULO, IRBC #### [facility] (DEFAULT) [address] [place] [address] IRON/IRON BINDING/TRANSFERRI Non 03-06-2024 Iron [Mass/Vol] 55 ug/dL Normal 40-[address] [facility] Comment on above: Performed By: #### H PAULO, IRBC #### [facility] (DEFAULT) [address] [place] [address] Iron Saturation 13 % Low 20-[address] [facility] Comment on above: Performed By: #### H PAULO, IRBC #### [facility] (DEFAULT) [address] [place] [address] Total Iron Binding Capacity 440 mcg/dL High 250-425 [facility] Comment on above: Performed By: #### H FP, IRBC #### [facility] (DEFAULT) [address] [address] Transferrin [Mass/Vol] 352 mg/dL Normal 200-400 [facility] Comment on above: Performed By: #### H PAULO, IRBC #### [facility] (DEFAULT) [address] [place] [address] MOLECULAR STOOL PARASITE GUEVARA Cindy 03-06-2024 Cryptosporidium Parvum/Hominis By Pcr Negative Normal Negative [facility] Comment on above: Order Comment: Colle ct [...] Performed By: #### S CPBP #### [facility] (DEFAULT) [address] [address] Entamoeba Histolytica By Pcr Negative Normal Negative [facility] Comment on above: Order Comment: Colle ct [...] Performed By: #### S CPBP #### [facility] (DEFAULT) [address] [place] [address] Giardia Lamblia By Pcr Negative Normal Negative [facility] Comment on above: Order Comment: Colle ct [...] Performed By: #### S CPBP #### [facility] (DEFAULT) [address] [address] TSH W/FT4 REFLEXon 4 TSH 1.986 uIU/mL Normal 0.550-4.780 [facility] Comment on above: Performed By: #### F ERIB, TSHQR #### [facility] (DEFAULT) [address] [address] VITAMIN D (25-HYDROXY,TOTAL) on 03-06-2024 25-OH Vitamin D Total 22.2 ng/mL Low 30.0-100.0 [facility] Comment on above: Order Comment: Vitam in D values have been shown to be falsely decreased in lipemic samples and should be interpreted with caution. Result Comment: <10 Deficiency 10-29 Insufficiency 30-100 Optimal Level >100 Possible Toxicity Performed By: #### D 25OH #### [facility] (DEFAULT) [address] [place] [address] BACTERIAL VAGINOSIS NAATon 0 02-27-2024 Interpretation and review of laboratory results Normal [facility] Lactobacillus crispatus+gasseri+riri senii + Gardnerella vaginalis + Atopobium vaginae rRNA JOSÉ MIGUEL+probe Ql (Vag fld) Negative Negative for bacterial vaginosis [facility] Lactobacillus crispatus+gasseri+riri senii + Gardnerella vaginalis + Atopobium vaginae rRNA JOSÉ MIGUEL+probe Ql (Vag fld) Negative Normal Negative for bacterial vaginosis [facility] Comment on above: Order Comment: Speci men Type: SWABOrdering Facility: [facility] Address: [address] [place] [address] Performed By: #### B VAMP, CVTV ####[facility] LABCLIA [id number] [place] [address] [place] BETY/TRICHOMONAS NAATon 0 02-27-2024 C. glabrata RNA JOSÉ MIGUEL+probe Ql (Vag fld) Negative Negative for Bety glabrata [facility] Bety sp DNA JOSÉ MIGUEL+probe Ql (Vag fld) Negative Negative for Bety species [facility] Interpretation and review of laboratory results Normal [facility] T. vaginalis DNA JOSÉ MIGUEL+probe Ql (Unsp spec) Negative Negative for Trichomonas vaginalis by amplification [facility] C. glabrata RNA JOSÉ MIGUEL+probe Ql (Vag fld) Negative Normal Negative for Bety glabrata [facility] Comment on above: Order Comment: Speci men Type: SWABOrdering Facility: [facility] Address: [address] [place] [address] Performed By: #### B VAMP, CVTV ####[facility] LABCLIA [id number] [place] [address] [place] Bety sp DNA JOSÉ MIGUEL+probe Ql (Vag fld) Negative Normal Negative for Bety species [facility] Comment on above: Order Comment: Speci men Type: SWABOrdering Facility: [facility] Address: [address] [place] [address] Performed By: #### B VAMP, CVTV ####[facility] LABCLIA [id number] [place] [address] [place] T. vaginalis DNA JOSÉ MIGUEL+probe Ql (Unsp spec) Negative Normal Negative for Trichomonas vaginalis by amplification [facility] Comment on above: Order Comment: Speci men Type: SWABOrdering Facility: [facility] Address: [address] [place] [address] Performed By: #### B VAMP, CVTV ####[facility] LABCLIA [id number] [address] [place] CNOVon 02-27-2024 CNOV Office Visit (SHERON ) MARY LEAL ([id number]) 1970 F Date Time Provider Department 02/27/24 10:00 AM FLOWER LOPEZ During your visit today, we recorded the following information about you: Pulse Blood pressure Weight Height 62/minute 146/93 69.9 kg 1.626 Flower Zhao APRN.CNP 02/27/2024 10:40 AM Signed Female Pelvic Medicine [...] intermittently- somewhat improved. She has worked with [employer] rep re: interstim setting, now on program [...] you received about pain medications helpful? Yes Brisket Puller offered:Patient declines OBJECTIVE: BP 146/93 Pulse 62 [...] Clear 4 (more content not included)... Normal [facility] UA DIP, URINE (POC)on 2023 BILIRUBIN UA (POCT) Negative Negative [facility] CLARITY UA (POCT) Clear [facility] COLOR UA (POCT) Yellow [facility] GLUCOSE UA (POCT) Negative Negative mg/dL [facility] Hemoglobin Ql (U) Negative Negative [facility] KETONE UA (POCT) Negative Negative mg/dL [facility] LEUKOCYTES UA (POCT) Negative Negative [facility] NITRITE UA (POCT) Negative Negative [facility] PH UA (POCT) 5.5 4.5 - 8.0 [facility] Protein Ql (U) Negative Negative mg/dL [facility] SPECIFIC GRAVITY UA (POCT) >=1.030 1.005 - 1.030 [facility] UROBILINOGEN UA (POCT) 0.2 Normal E.U./dL [facility] Location:[facility] [facility] [address] [place] [address], [address] [place] [address] POINT OF CARE [facility] 29on 02-07-2024 29 Addended by: NATHANAEL MENDOZA on: 02/07/2024 12:01 PM Modules accepted: Orders [facility] Follow-Upon 02-07-2024 Follow-Up [id number] Darrian Leal 1970 F Date Provider Department Center 02/07/2024 PAULINE SANTACRUZ [facility] SLEEP [facility] No family history on file Level of Service:09171 [place] OFFICE/OUTPATIENT ESTABLISHED HIGH MDM 40 MIN Reason for Visit and Comments: Follow-up [074068] - Pt is here to activate her Inspire PAP. [facility] Hussain 01-27-2024 CNPN Telephone (GYNMN) MARY LEAL ([id number]) 1970 F Date Time Provider Department 01/27/24 RADHA DUNHAM GYNMN During your visit today, we recorded the following information about you: Radha Dunham MD 01/27/2024 10:54 AM Signed Safety Lead Resident Telephone Encounter 01/27/2024 10:44 AM Call [...] Discussed with Dr. Mullins, Urogyn fellow physician soil conservationist. Radha Dunham MD Obstetrics and Gynecology, PGY1 [...] questions listed on document. Document scanned into [employer]. ThanksKelli Sandra K, RN 03/15/2024 11:27 AM Signed Called pt. Verified name/ Verified requested information and form faxed to [employer] @ [phone] Lili Matias RN March 15, 2024 11:27 [...] idiopathic cons (more content not included)... [facility] ANES POSTPROC EVALon 024 ANES POSTPROC EVAL HNO ID: [id number] Author: BONI MURILLO MD Service: ? Author Type: Anesthesiologist Type: Anesthesia Postprocedure Evaluation Filed: 01/26/2024 09:51 Note Text: POST ANESTHESIA EVALUATION NOTE : 1970 Procedure Summary Date: 01/26/24 Room / Location: [address] [facility] Anesthesia Start: 727 Anesthesia [...] 01/26/24 0930 Temp 36 ?C (96.8 ?F) 01/26/24929 Pulse 64 01/26/24 0930 Resp 16 01/26/24 09 SpO2 100 % 01/26/24929 Post Anesthesia Patient [...] January 26, 2024 TIME: 9:51 AM CSN: [id number] [facility] ANES PRE-OPon 01-26-2024 ANES PRE-OP HNO ID: [id number] Author: BONI MURILLO MD Service: ? Author [...] January 26, 2024 TIME: 7:06 AM CSN: [id number] [facility] BRIEF OP NOTon 01-26-2024 BRIEF OP NOT HNO ID: [id number] Author: SOFIYA MULLINS MD Service: Urogynecology Author Type: Fellow Type: Brief Op Note Filed: 01/26/2024 08:44 Note Text: BRIEF OPERATIVE / PROCEDURE NOTE LOG ID: [id number] Surgery/Procedure Date: 01/26/2024 Incision/Procedure Start Time: 7:54 AM Incision Close/Procedure End Time: 8:36 AM Surgeon(s)/Procedurali st(s) and It Training Specialist(s): Surgeon(s) and Role: * Pam Wang [...] Implant Name Type Inv. Item Serial No. Marble Installer Lot No. LRB No. Used Action LEAD INTRSTIM MRI 28CM - [id number] Lead LEAD INTRSTIM MRI 28CM [employer] [id number] Left 1 Implanted INTERSTIM X RECHARGE FREE NEUROSTIMULATOR - [id number] Stimulator INTERSTIM X RECHARGE FREE NEUROSTIMULATOR [id number] [employer] Left 1 Implanted Pre-Op/Pre-Procedure Diagnosis: urinary retention, urgency, frequency and nocturia Post-Op/Post-Procedure Diagnosis: same SIGNATURE: Sofiya Mullins MD DATE: January 26, 2024 PATIENT NAME: Mary Leal TIME: 8:42 AM PAGER/CONTACT #: Pager [phone] [facility] HISTORY PHYSICALon HISTORY PHYSICAL HNO ID: [id number] Author: SOFIYA MULLINS MD Service: Urogynecology Author [...] VTE Prophylaxis/An (more content not included)... [facility] NURSING PROGon 01-26-2024 NURSING PROG HNO ID: [id number] Author: DAI CAMPUZANO, MAKI Service: Nursing Author Type: Registered Nurse Type: Nursing Progress Note Filed: 01/26/2024 09:51 Note Text: 0923 Paged PACU Resident M22-30 Elvis- Could you please place an order for a one time dose of her homegoing oxycodone prescription? Dai GAMBINO [id number] Paged PACU Resident M22-30 Elvis- Could you please place an order for a one time dose of her homegoing oxycodone prescription? Dai GAMBINO [id number] Normal [facility] NURSING PROG HNO ID: [id number] Author: CATRACHO PIERRE, MAKI Service: ? Author Type: Registered Nurse Type: Nursing Progress Note Filed: 01/26/2024 06:41 Note Text: Nursing Progress Note Topic of Note: Daily Note PATIENT NAME: Mary Leal Patient Location: Main - Periop OR/Main - Periop OR Room: Main - Periop OR ([id number]) PAGE SENT: Akiko Wang and Resident pest controller-Pt in M23-37 Mary Leal will need informed consent and H AND P for surgery this morning. Thanks, Catracho [id number] This note was completed by: Catracho Pierre [facility] OPERATIVE NOon 01-26-2024 OPERATIVE NO HNO ID: [id number] Author: PAM WANG MD Service: Urogynecology Author Type: Physician Type: Operative Report Filed: 01/29/2024 10:50 Note Text: OPERATIVE/PROCEDURE REPORT LOG ID: [id number] Surgery/Procedure Date: 01/26/2024 Incision/Procedure Start Time: 7:54 AM Incision Close/Procedure End Time: 8:36 AM Surgeon(s)/Procedurali st(s) and It Training Specialist(s): Surgeon(s) and Role: * Pam Wang [...] Implant Name Type Inv. Item Serial No. Marble Installer Lot No. LRB No. Used Action LEAD INTRSTIM MRI 28CM - [id number] Lead LEAD INTRSTIM MRI 28CM [employer] [id number] Left 1 Implanted INTERSTIM X RECHARGE FREE NEUROSTIMULATOR - [id number] Stimulator INTERSTIM X RECHARGE FREE NEUROSTIMULATOR [id number] [employer] Left 1 Implanted Pre-Op/Pre-Procedure Diagnosis: [...] the S3 foramen until the marker was intermediate through the bone. The sacral lead was [...] and impedances (more content not included)... Normal [facility] HISTORY PHYSICALon 4 HISTORY PHYSICAL HNO ID: [id number] Author: MAX MARROQUIN PA-C Service: ? Author Type: Physician It Training Specialist Type: H&P Filed: 01/25/2024 09:25 Note Text: PREANESTHESIA CONSULT CLINIC TELEHEALTH VISIT SERVICE DATE: 01/25/2024 SERVICE TIME: 9:02 AM Patient has been identified by name and date of : Yes Reason for contact: PACC visit Accompanied by: Self This is a virtual visit using [employer] Video Visit. It required patient-provider interaction for the medical decision making as documented below. I have communicated my name and active licensure. The patient's identity and physical location were verified at the time of this visit. Either the patient or their legal customer service representative teacher has been informed of the risks and [...] using inspire to get activated 02/07/2024 ) [id number] Score: Age: <65 Sex: female CHF history: No Hypertension history: Yes Stroke/TIA/thromboembo lism history: No Vascular disease history: No Diabetes history: No [id number] Score: 2 ANESTHESIA FINDINGS: Intubation History: No [...] PAST SURGICAL HIST (more content not included)... [facility] CNPDianne 12-25-2023 CNPN Telephone (GYNMN) MARY LEAL ([id number]) 1970 F Date Time Provider Department 12/25/23 [...] distance health visit in this department: 10/25/2021 Photographic Aide, Nurse Next visit in this department: 01/25/2024 [...] - Fully Assessed Reason for Visit: Question [7267] Prescriptions as of 12/25/2023 - ARIPiprazole monohydrate [...] Status:Closed by STACIE GONZALEZ on 12/25/23 Normal [facility] BASIC METABOLIC PANLon 12-20 Anion gap [Moles/Vol] 6 mmol/L Normal 5-15 [facility] Comment on above: Performed By: #### B MP #### [facility] ([id number]) [address] [place] [address] Calcium [Mass/Vol] 9.3 mg/dL Normal 8.5-10.5 [facility] Comment on above: Performed By: #### B MP #### [facility] ([id number]) [address] [place] [address] Chloride [Moles/Vol] 105 mmol/L Normal 98-109 [facility] Comment on above: Performed By: #### B MP #### [facility] ([id number]) [address] [place] [address] CO2 [Moles/Vol] 28 mmol/L Normal 22-32 [facility] Comment on above: Performed By: #### B MP #### [facility] ([id number]) [address] [place] [address] Creatinine [Mass/Vol] 0.60 mg/dL Normal 0.40-1.00 [facility] Comment on above: Result Comment: METH OD TRACEABLE TO IDMS STANDARD Performed By: #### B MP #### [facility] ([id number]) [address] [place] [address] eGFR (CKD-EPI) NON-RACE DEPENDENT >90 Normal >59 [facility] Comment on above: Result Comment: Reported eGFR is based on the CKD-EPI 2020 equation that does not use a race coefficient. Performed By: #### B MP #### [facility] ([id number]) [address] [place] [address] Glucose [Mass/Vol] 85 mg/dL Normal 65-99 [facility] Comment on above: Performed By: #### B MP #### [facility] ([id number]) [address] [place] [address] Potassium [Moles/Vol] 4.2 mmol/L Normal 3.5-5.0 [facility] Comment on above: Performed By: #### B MP #### [facility] ([id number]) [address] [place] [address] Sodium [Moles/Vol] 139 mmol/L Normal 134-146 [facility] Comment on above: Performed By: #### B MP #### [facility] ([id number]) [address] [place] [address] Urea nitrogen [Mass/Vol] 14 mg/dL Normal 5-23 [facility] Comment on above: Performed By: #### B MP #### [facility] ([id number]) [address] [place] [address] Basic Metabolic Panelon 12-07 Anion gap [Moles/Vol] 6 mmol/L 5 - 15 mmol/L [facility] Calcium [Mass/Vol] 9.3 mg/dL 8.5 - 10. 5 mg/dL [facility] Chloride [Moles/Vol] 105 mmol/L 98 - 10 9 mmol/L [facility] CO2 [Moles/Vol] 28 mmol/L 22 - 32 mmol/L [facility] Creatinine [Mass/Vol] 0.60 mg/dL 0.40 - 1.00 mg/dL [facility] Comment on above: METHOD TRACEABLE TO [facility] STANDARD eGFR (CKD-EPI)non-race dependent - PINF [facility] Comment on above: Reported eGFR is based on the CKD-EPI 2020 equation that does not use a race coefficient. Glucose [Mass/Vol] 85 mg/dL 65 - 99 mg/dL [facility] Potassium [Moles/Vol] 4.2 mmol/L 3.5 - 5.0 mmol/L [facility] Sodium [Moles/Vol] 139 mmol/L 134 - 146 mmol/L [facility] Urea nitrogen [Mass/Vol] 14 mg/dL 5 - 23 mg[facility]dL [facility] CNPN Telephone (WCTRMN) MARY LEAL ([id number]) 1970 F Date Time Provider Department 11/27/23 PAM WANG [facility] During your visit today, we recorded the following information about you: Amber Trimble 11/27/2023 9:32 AM Signed Patient: Mary Leal : 1970 Provider: Pam Wang MD Caller Phone #: [phone] (home) [phone] (cell) Reason for call: boyfriend pulled out bladder stimulator. Has log of 6 days of usage. Would like a call. Message routed to nurse triage Date of next visit: MEREDITH: 08/04/2021 Lex Vieyra, MAKI 11/27/2023 10:18 AM Signed MEREDITH 11/21/2023: Procedure to be performed: Peripheral Nerve Evaluation (PNE) Indication: Urinary frequency, urinary urgency, overactive bladder The patient tolerated the procedure well. We will see how she does over the next week and plan for interstim stages 1/2 in the OR. MD Mary Delcid reports the PNE stimulator stopped connecting so Kim of [employer] said to remove it. She removed the [...] urge [N39.41] Order(s):SURGICAL REQUEST - ELECTIVE (06/2020) [[id number]] Order #: [id number]: 1 Prescriptions as of 11/27/2023 - ARIPiprazole [...] Encounter Status:Closed by PAM WANG on 11/27/23 [facility] CNPDianne 11-25-2023 CNPN Telephone (GYNMN) MARY LEAL ([id number]) 1970 F Date Time Provider Department 11/25/23 RADHA DUNHAM GYNMN During your visit today, we recorded the following information about you: Radha Dunham MD 11/25/2023 2:43 PM Signed Safety Lead Resident Telephone Encounter 11/25/2023 2:40 PM Call [...] adequately. Discussed with Dr. Mullins, Urogyn fellow soil conservationist. Radha Dunham MD Obstetrics and Gynecology, PGY1 Allergies As of Date: 11/25/2023 Noted Allergy Reaction RISPERIDONE 07/27/2021 5 - Intolerance Comments: Breast discharge POISON BRENDA EXTRACT 04/06/2023 2 - Rash Date Reviewed: 10/10/2023 Reviewed by: José Luis Thorpe RN - Fully Assessed Reason for Visit: Patient Question [8601] Prescriptions as of 11/25/2023 - ARIPiprazole monohydrate [...] Status:Closed by RADHA DUNHAM on 11/25/23 Normal [facility] CNOVon 11-21-2023 CNOV Office Visit (SHERON ) MARY LEAL ([id number]) 1970 F Date Time Provider Department 11/21/23 [...] Voiding dysfunction [N39.8] Order(s):UA DIP, URINE (POC) [[id number]] Order #: [id number]. #:[id number] [] ondansetron orally disintegrating 4 mg tab(s) [...] (GAS RE (more content not included)... Normal [facility] CNOVon 10-10-2023 CNOV Office Visit (SHERON ) MARY LEAL ([id number]) 1970 F Date Time Provider Department 10/10/23 [...] PFSH obtained by others. Pam Wang MD Brisket Puller offered: Patient declines. OBJECTIVE: BP 102/60 General: [...] would like to move forward with PNE. [employer] packet given to patient today to review. [...] which included preparing to see the patient, [id number] patient care, completing clinical (more content not included)... [facility] Hussain 09-12-2023 MARIAN Telephone (CELEQ) MARY LEAL ([id number]) 1970 F Date Time Provider Department 09/12/23 [...] which included preparing to see the patient, [id number] patient care, completing clinical documentation, obtaining and/or [...] call to schedule cystoscopy. Urogynecology [facility] Main provided: Pam Wang Staff [...] Diagnosis:History of suburethral sling procedure [Z98.890] Order(s):CYSTOSCOPY [facility] [[id number]] Order #: [id number] Prescriptions as of 09/12/2023 - atenolol (TENORMIN) [...] Take 1,000 (more content not included)... Normal [facility] CNOVon 09-11-2023 CNOV Office Visit (UROSMN ) MARY LEAL ([id number]) 1970 F Date Time Provider Department 09/11/23 [...] RN 09/11/2023 11:37 AM Signed [facility] URODYNAMIC [...] allergy: No Females- Is patient : No Brisket Puller offered:Patient declines B/O UA: YES DIP: UROFLOWMETRY [...] MD 09/11/2023 1:18 PM Signed [facility] FOR FEM[facility] [...] Jairon Lai MD Referring Provider: PAM WANG [[id number]] Allergies As of Date: 09/11/2023 Noted Allergy [...] milliliters subcut (more content not included)... Normal [facility] BASIC METABOLIC PANELon 10-0 Anion gap [Moles/Vol] 1 mmol/L Low 8-12 [facility] Comment on above: Performed By: #### 4 [id number], [id number], [id number], [id number] #### [facility] [address] Calcium [Mass/Vol] 9.2 mg/dL Normal 8.4-10.4 [facility] Comment on above: Performed By: #### 4 [id number], [id number], [id number], [id number] #### [address] [place] [address] [facility] Chloride [Moles/Vol] 105 mmol/L Normal 96-109 [facility] Comment on above: Performed By: #### 4 [id number], [id number], [id number], [id number] #### [place] [address] CO2 [Moles/Vol] 32 mmol/L High 22-30 [facility] Comment on above: Performed By: #### 4 [id number], [id number], [id number], [id number] #### [address] Creatinine [Mass/Vol] 0.67 mg/dL Normal 0.52-1.04 [facility] Comment on above: Performed By: #### 4 [id number], [id number], [id number], [id number] #### [address] GLOMERULAR FILTRATION RATE ML/MIN/1.73 SQ M.PREDICTED >90.0 Normal >=60.0 [facility] Comment on above: Result Comment: eGFR [...] Kidney Int Suppl.2013;3:1-150 Performed By: #### 4 [id number], 06107585, 08281430, [id number] #### [facility] [address] [place] [address] Glucose [Mass/Vol] 104 mg/dL High 65-100 [facility] Comment on above: Performed By: #### 4 4668344, 64196080, [id number], [id number] #### [facility] [address] [place] [address] Potassium [Moles/Vol] 4.6 mmol/L Normal 3.6-5.1 [facility] Comment on above: Performed By: #### 4 [id number], [id number], [id number], [id number] #### [address] [place], [place] [address] Sodium [Moles/Vol] 138 mmol/L Normal 135-147 [facility] Comment on above: Performed By: #### 4 [id number], 15005853, [id number], [id number] #### [place] [address] Urea nitrogen [Mass/Vol] 16 mg/dL Normal 8-26 [place] Comment on above: Performed By: #### 4 [id number], [id number], 62865267, [id number] #### [place] [address] Basic metabolic panel aka Ch em 8on 08-12-2023 Anion gap [Moles/Vol] 1 mmol/L Low 8 - 12 mmol/L [facility] Calcium [Mass/Vol] 9.2 mg/dL 8.4 - 10. 4 mg/dL [facility] Calcium hydrogen phosphate dihydrate crystals LM Ql (Urine sed) 16 mg/dL 8 - 26 mg/dL [facility] [employer] Chloride [Moles/Vol] 105 mmol/L 96 - 10 9 mmol/L [facility] CO2 (BldMV) [Moles/Vol] 32 mmol/L High 22 - 30 mmol/L [facility] Creatinine [Mass/Vol] 0.67 mg/dL 0.52 - 1.04 mg/dL [facility] GFR/1.73 sq M.predicted MDRD (S/P/Bld) [Vol rate/Area] - PINF [facility] Comment on above: eGFR calculation bas [...] 104 mg/dL High 65 - 100 mg/dL [employer] Interpretation and review of laboratory results Abnormal [employer] Potassium [Moles/Vol] 4.6 mmol/L 3.6 - 5.1 mmol/L [facility] Sodium [Moles/Vol] 138 mmol/L 135 - 147 mmol/L [facility] CBC AND DIFFERENTIALon 08-12 ABSOLUTE BASOPHIL 0.0 x10*3/uL Normal 0.0-0.1 [facility] Comment on above: Performed By: #### 4 [id number] #### [address] ABSOLUTE EOSINOPHIL 0.1 x10*3/uL Normal 0.1-0.3 [facility] Comment on above: Performed By: #### 4 [id number] #### [address] ABSOLUTE IMMATURE GRANULOCYTES 0.0 x10*3/uL Normal 0.0-0.1 [facility] Comment on above: Performed By: #### 4 [id number] #### [address] ABSOLUTE LYMPH 1.6 x10*3/uL Normal 1.2-3.3 [facility] Comment on above: Performed By: #### 4 [id number] #### [address] ABSOLUTE MONO 0.3 x10*3/uL Normal 0.2-0.6 [facility] Comment on above: Performed By: #### 4 [id number] #### [address] ABSOLUTE NEUTROPHIL 3.1 x10*3/uL Normal 2.4-6.6 [facility] Comment on above: Performed By: #### 4 [id number] #### [address] Basophils/100 WBC (Bld) 0.8 % Normal [facility] Comment on above: Performed By: #### 4 [id number] #### [address] Eosinophils/100 WBC (Bld) 2.7 % Normal [facility] Comment on above: Performed By: #### 4 [id number] #### [address] Erythrocyte distribution width (RBC) [Ratio] 13.0 % Normal 11.5-14.5 [facility] Comment on above: Performed By: #### 4 [id number] #### [address] Hematocrit (Bld) [Volume fraction] 37.5 % Normal 33.6-46.8 [facility] Comment on above: Performed By: #### 4 [id number] #### [address] Hemoglobin (Bld) [Mass/Vol] 11.8 g/dL Normal 11.7-15.8 [facility] Comment on above: Performed By: #### 4 [id number] #### [address] Immature granulocytes/100 WBC (Bld) 0.4 % Normal [facility] Comment on above: Performed By: #### 4 [id number] #### [address] Lymphocytes/100 WBC (Bld) 31.5 % Normal [facility] Comment on above: Performed By: #### 4 [id number] #### [address] MCH (RBC) [Entitic mass] 26.5 pg Low 27.5-32.3 [facility] Comment on above: Performed By: #### 4 [id number] #### [address] MCHC (RBC) [Mass/Vol] 31.5 g/dL Normal 30.7-35.5 [facility] Comment on above: Performed By: #### 4 [id number] #### [address] MCV (RBC) [Entitic vol] 84.3 fL Normal 80.2-99 [facility] Comment on above: Performed By: #### 4 [id number] #### [address] Monocytes/100 WBC (Bld) 5.4 % Normal [facility] Comment on above: Performed By: #### 4 [id number] #### [address] Neutrophils/100 WBC (Bld) 59.2 % Normal [facility] Comment on above: Performed By: #### 4 [id number] #### [address] NUCLEATED RED BLOOD CELLS AUTO 0.0 % Normal 0.0-1.0 [facility] Comment on above: Performed By: #### 4 [id number] #### [facility] [address] [place] [address] PLATELET COUNT 299 x10*3/uL Normal 150-400 [facility] Comment on above: Performed By: #### 4 [id number] #### [place] [id number] RED BLOOD CELL COUNT 4.45 x10*6/uL Normal 3.60-5.20 [facility] Comment on above: Performed By: #### 4 [id number] #### [address] WHITE BLOOD CELLS 5.2 x10*3/uL Normal 4.3-10.3 [facility] Comment on above: Performed By: #### 4 [id number] #### [address] CBC with differentialOrdered By: Background Lab on 08-12-2023 Absolute Immature Granulocytes 0.0 [facility] Age [Time] 84.3 fL 80.2 - 99 fL [facility] Age [Time] 26.5 pg Low 27.5 - 32.3 pg [facility] Age [Time] 31.5 g/dL 30.7 - 35.5 g/dL [facility] B. burgdorferi IgM IB Ql (CSF) 31.5 % [facility] Basophils (Bld) [#/Vol] 0.0 10*3/uL [facility] Basophils/100 WBC (Body fld) 0.8 % [place] Eosinophils (Bld) [#/Vol] 1.6 10*3/uL [place] Eosinophils (Bld) [#/Vol] 0.3 10*3/uL [place] Eosinophils (Bld) [#/Vol] 0.1 10*3/uL [facility] Eosinophils/100 WBC (Bld) 2.7 % [place] [facility] Erythrocyte distribution width (RBC) [Ratio] 13.0 % 11.5 - 14.5 % [place] [facility] Hematocrit (Bld) [Volume fraction] 37.5 % 33.6 - 46.8 % [facility] Hexanoylglycine (U) [Moles/Vol] 11.8 g/dL 11.7 - 15.8 g/dL [facility] Immature granulocytes/100 WBC (Bld) 0.4 % [facility] Interpretation and review of laboratory results Abnormal [facility] Monocytes/100 WBC (Bld) 5.4 % [facility] Neurotensin (P) [Mass/Vol] 59.2 % [facility] Neutrophils (Bld) [#/Vol] 3.1 10*3/uL [facility] Nucleated RBC/100 WBC (Bld) [Ratio] 0.0 % 0.0 - 1.0 % [facility] Platelets (Bld) [#/Vol] 299 10*3/uL [facility] RBC (Bld) [#/Vol] 4.45 10*6/uL [facility] WBC (Bld) [#/Vol] 5.2 10*3/uL [employer] [facility] CT ABDOMEN PELVIS WITH IV CO [...] 20 RAC Omni 300 100 ml Normal [facility] HEPATIC FUNCTION PANELon Albumin [Mass/Vol] 4.0 g/dL Normal 3.5-5.0 [facility] Comment on above: Performed By: #### 4 [id number], [id number], [id number], [id number] #### [address] [facility] PHOS 104 U/L Normal 24-126 [facility] Comment on above: Performed By: #### 4 [id number], [id number], [id number], [id number] #### [address] ALT [Catalytic activity/Vol] 50 U/L High 4-35 [facility] Comment on above: Performed By: #### 4 [id number], [id number], [id number], [id number] #### [address] AST [Catalytic activity/Vol] 59 U/L High 3-47 [facility] Comment on above: Performed By: #### 4 [id number], [id number], [id number], [id number] #### [address] Bilirubin [Mass/Vol] 0.1 mg/dL Low 0.2-1.6 [facility] Comment on above: Performed By: #### 4 [id number], [id number], [id number], [id number] #### [address] Bilirubin.indirect [Mass/Vol] 0.1 mg/dL Normal <=0.5 [facility] Comment on above: Performed By: #### 4 [id number], [id number], [id number], [id number] #### [address] Protein [Mass/Vol] 6.6 g/dL Normal 6.3-8.2 [facility] Comment on above: Performed By: #### 4 [id number], [id number], [id number], [id number] #### [address] Hepatic Function Panelon Albumin (Syn fld) [Mass/Vol] 4.0 g/dL 3.5 - 5.0 g/dL [facility] Aldosterone (U) [Mass/Vol] 104 U/L 24 - 126 U/L [facility] ALT [Catalytic activity/Vol] 50 U/L High 4 - 35 U/L [facility] AST [Catalytic activity/Vol] 59 U/L High 3 - 47 U/L [facility] Bilirubin [Mass/Vol] 0.1 mg/dL Low 0.2 - 1 .6 mg/dL [facility] Bilirubin.conjugated [Mass/Vol] 0.1 mg/dL NINF - 0.5 mg/dL [facility] Protein [Mass/Vol] 6.6 g/dL 6.3 - 8.2 g/dL [facility] LIPASEon 08-12-2023 Lipase [Catalytic activity/Vol] 11 U/L Low 23-300 [facility] Comment on above: Performed By: #### 4 [id number], [id number], [id number] #### [address] Lipaseon 08-12-2023 Lipase [Catalytic activity/Vol] 11 U/L Low 23 - 300 U/L [facility] No Panel Informationon 08-12 Extra Tube Hold for add-ons. [facility] Interpretation and review of laboratory results Abnormal [facility] POCT ED/FC/GSC Urine PregOrd ered By: Della Hays on 08-12-2023 Beta HCG ( test) Ql (U) Negative [facility] Interpretation and review of laboratory results Normal [facility] Landscaping Manager Acceptable yes [facility] TROPONIN Ion 08-12-2023 Troponin I.cardiac [Mass/Vol] ng/mL Normal <=0.033 [facility] Comment on above: Result Comment: Nega tive: No detectable troponin-I. Performed By: #### 4 [id number] #### [address] TROPONIN I SERIESon 08-12-20 Troponin I.cardiac [Mass/Vol] ng/mL Normal <=0.033 [facility] Comment on above: Result Comment: Nega tive: No detectable troponin-I. Performed By: #### 4 [id number], [id number], [id number], [id number] #### [place] [id number] [place] Troponin I (One time)on Interpretation and review of laboratory results Normal [facility] Troponin I.cardiac [Mass/Vol] ng/mL [facility] - 0.033 ng/mL [facility] Comment on above: Negative: No detectable troponin-I. [facility] Troponin I - Series (X 3)on 08-12-2023 Interpretation and review of laboratory results Normal [facility] Troponin I.cardiac [Mass/Vol] ng/mL NINF - 0.033 ng/mL [facility] Comment on above: Negative: No detectable troponin-I. [facility] URINALYSIS WITH REFLEX CULTU REon 08-12-2023 Appearance (U) Clear Normal [facility] Comment on above: Performed By: #### 4 [id number] #### [address] BILIRUBIN UA Negative Normal Negative [facility] Comment on above: Performed By: #### 4 [id number] #### [place] [address] [place] Color (U) Yellow Normal [facility] Comment on above: Performed By: #### 4 [id number] #### [address] Glucose Ql (U) Negative Normal Negative [facility] Comment on above: Performed By: #### 4 [id number] #### [address] Ketones Ql (U) Negative Normal Negative [facility] Comment on above: Performed By: #### 4 [id number] #### [address] LEUKOESTERASE Negative Normal Negative [facility] Comment on above: Performed By: #### 4 [id number] #### [place] [address] [place] MUCOUS-URINE Occasional Normal [facility] Comment on above: Performed By: #### 4 [id number] #### [place] [address] [place] Nitrite Ql (U) Negative Normal Negative [facility] Comment on above: Performed By: #### 4 [id number] #### [place] [address] [place] OCCULT BLD Negative Normal Negative [facility] Comment on above: Performed By: #### 4 [id number] #### [address] PH, URINE 5.0 Normal [facility] Comment on above: Performed By: #### 4 [id number] #### [address] Protein Ql (U) Negative Normal Negative [facility] Comment on above: Performed By: #### 4 [id number] #### [address] RBC LM.HPF (Urine sed) [#/Area] /[HPF] Normal <=5 [facility] Comment on above: Performed By: #### 4 [id number] #### [address] SPECIFIC GRAVITY, URINE 1.025 Normal [facility] Comment on above: Performed By: #### 4 [id number] #### [address] SQUAMOUS EPI CELLS 51 /LPF Normal [facility] Comment on above: Performed By: #### 4 [id number] #### [address] UROBILINOGEN UA Negative Normal <2.0 [facility] Comment on above: Performed By: #### 4 [id number] #### [address] WBC LM.HPF (Urine sed) [#/Area] 2 /[HPF] Normal <=5 [facility] Comment on above: Performed By: #### 4 [id number] #### [address] Urinalysis complete W Reflex Culture panel (U)on 08-12-2023 Acetone [Mass/Vol] Negative Negative [facility] Appearance (Body fld) Clear [facility] Bilirubin Ql (U) Negative Negative [facility] Color (Stone) Yellow [facility] G6PD (RBC) [Catalytic activity/Vol] Negative Negative [facility] Hemoglobin Ql (U) NINF [facility] Leukocyte esterase Test strip Ql (U) Negative Negative [facility] Mucor racemosus IgE Qn (S) Occasional /LPF [facility] Nitrite Test strip (U) [Mass/Vol] Negative Negative [facility] pH (Migue fld) 5.0 [facility] Protein (U) [Mass/Vol] Negative Negative [facility] [place] IgE Qn (S) Negative Negative [facility] Specific gravity (U) [Rel density] 1.025 [facility] Spherocytes LM Ql (Bld) 51 /LPF [facility] Urobilinogen Qn (U) Negative NINF - 2.0 [facility] WBC (U) [#/Vol] 2 /uL NINF [facility] CNOVon 07-31-2023 CNOV Office Visit ([facility] ) MARY LEAL ([id number]) 1970 F Date Time Provider Department 07/31/23 2:30 PM NELSY CHÁVEZ During your visit today, we recorded the following information about you: Pulse Blood pressure Weight Height 76/minute 136/96 69.9 kg 1.626 m Nelsy Chváez APRN.CNP 07/31/2023 5:35 PM Signed Female Pelvic [...] new Pain: no Abnormal Vaginal 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 She has no history of an abnormal mammogram with cysts on US LMP: No LMP recorded. Patient has had a hysterectomy.; Menopause 3 years ago; hysterectomy in 2015: Menstrual history: NA; Deliveries: I have confirmed and edited as necessary, the PFSH obtained by others. Nelsy Chávez APRN.DOOR INSTALLER Brisket Puller offered: Patient declines. OBJECTIVE: There were no [...] for now d/t side effects Nelsy Chávez APRN.DOOR INSTALLER I spent a total of 45 minutes on the date of the service which included preparing to see the patient, [id number] patient care, completing clinical documentation, performing a [...] [R35.0] Nocturia [R35.1] Order(s):UA DIP, URINE (POC) [[id number]] Order #: [id number]. #:[id number] URODYNAMICS WHI [[id number]] Order #: [id number] Prescriptions as of 07/31/2023 - atenolol (TENORMIN) [...] 10 m (more content not included)... Normal [facility] UA DIP, URINE (POC)on 2022 BILIRUBIN UA (POCT) Negative Negative [facility] CLARITY UA (POCT) Clear [facility] COLOR UA (POCT) Yellow [facility] GLUCOSE UA (POCT) Negative Negative mg/dL [facility] Hemoglobin Ql (U) Negative Negative [facility] KETONE UA (POCT) Negative Negative mg/dL [facility] LEUKOCYTES UA (POCT) Negative Negative [facility] NITRITE UA (POCT) Negative Negative [facility] PH UA (POCT) 5.0 4.5 - 8.0 [facility] Protein Ql (U) Negative Negative mg/dL [facility] SPECIFIC GRAVITY UA (POCT) 1.010 1.005 - 1.030 [facility] UROBILINOGEN UA (POCT) 0.2 E.U./dL Normal E.U./dL [facility] Office Visit (Cardiology)on 06-13-2023 Follow-up visit Diagnoses/Problems Assessed Chest pain (786.50) (R07.9) Elevated troponin (790.6) (R77.8) Fatigue (780.79) (R53.83) Never a smoker Overweight with body mass index (BMI) of 27 to 27.9 in adult (278.02,V85.23) (E66.3,Z68.27) Orders Elevated troponin IO EKG Electrocardiogram- 12 Lead; Status:Active - Perform Order,Retrospective Authorization; Requested for:[id number]; Overweight with body mass index (BMI) of 27 to 27.9 in adult Healthy Weight Tips; Status:Complete - Retrospective Authorization; Done: [id number] Some eating tips that can help you lose weight.; Status:Complete - Retrospective Authorization; Done: [id number] SocHx: Never a smoker Tobacco Use Screening; Status:Complete; Done: [id number] Patient Instructions Please bring all medicines, vitamins, [...] diaphoresis with recent work-up that [facility] emergency room. Reportedly her troponins are elevated [...] of which are currently being investigated at [facility] (now her fourth GI specialist). Last year while in [place] she had similar issues with elevated troponins in the ED and underwent heart catheterization that did not reveal any specific significant disease, details of the discharge summary are reviewed She underwent recent stress perfusion imaging at [facility], the report is reviewed, she has no [...] investigate the troponin rise at [facility] however I believe this is likely a non-DE troponin elevation, likely associated with underlying inflammatory [...] negative for complaint. Vitals Vital Signs Recorded: [id number] 10:37AM Heart Rate70, Apical Irtstyqh103, RUE, Sitting Fsdvrxkdt30, RUE, Sitting Height5 ft 4 in Qnpged798 lb BMI Cqjhzzswxp34.46 kg/m2 BSA Calculated1.78 Tobacco Useb) No PHQ-2 [...] depression screening assessment No [facility] [address] DO Work Phone: Adult depression screening assessment Yes [facility] [address] DO Work Phone: Adult depression screening assessment Moderate (10-14) [facility] Work Phone: Fall risk assessment a) No falls within the last year [facility] [address] DO Work Phone: Tobacco use status [facility] b) No [facility] [address] DO Work Phone: Tobacco Screening. 1-Several days [facility] [address] DO Work Phone: Tobacco Screening. 3-Nearly every day [facility] [address] DO Work Phone: Tobacco Screening. 0-Not at all [facility] [address] DO Work Phone: Tobacco Screening. Somewhat Difficult [facility] [address] DO Work Phone: Activated partial thrombopla stin time (aPTT) in platelet poor plasma by coagulation aOrdered By: Anibal Valle on 06-05-2023 aPTT Coag (PPP) [Time] 28.0 s 25.1-36.[address] [facility] Basophils Auto (Bld) [#/Vol] Ordered By: Anibal Valle on 06-05-2023 Basophils (Bld) [#/Vol] 0.0 10*3/uL 0.0-0.[address] [facility] Basophils/100 WBC Auto (Bld) Ordered By: Anibal Vlale on 06-05-2023 Basophils/100 WBC (Bld) 0.4 % . [facility] Calcium [Mass/volume] in Ser um or PlasmaOrdered By: Anibal Valle on 06-05-2023 Calcium [Mass/Vol] 9.0 mg/dL 8.6-10.3 [facility] Carbon dioxide, total [Moles /volume] in Serum or PlasmaOrdered By: Anibal Valle on 06-05-2023 CO2 [Moles/Vol] 23.2 mmol/L 21.0-31.0 [facility] Chloride [Moles/volume] in S jay or PlasmaOrdered By: Anibal Valle on 06-05-2023 Chloride [Moles/Vol] 108 mmol/L 98-107 [facility] Creatinine [Mass/volume] in Serum or PlasmaOrdered By: Anibal Valle on 06-05-2023 Creatinine [Mass/Vol] 0.67 mg/dL 0.60-1.20 [facility] Eosinophils Auto (Bld) [#/Vo l]Ordered By: Anibal Valle on 06-05-2023 Eosinophils (Bld) [#/Vol] 0.1 10*3/uL 0.0-0.[address] [facility] Eosinophils/100 WBC Auto (Bl d)Ordered By: Anibal Valle on 06-05-2023 Eosinophils/100 WBC (Bld) 1.9 % . [facility] Erythrocyte distribution wid th Auto (RBC) [Ratio]Ordered By: Anibal Valle on 06-05-2023 Erythrocyte distribution width (RBC) [Ratio] 13.9 % 11.9-15.[address] [facility] Glucose [Mass/volume] in Ser um or PlasmaOrdered By: Anibal Valle on 06-05-2023 Glucose [Mass/Vol] 106 mg/dL 70-100 [facility] Comment on above: ADA recommended refe rence rangeRandom Glucose Reference Range is dependent on time and content of last meal. Glucose of more than 200 mg/dL in a nonstressed, ambulatory subject supports the diagnosis of Diabetes Mellitus. Hematocrit Auto (Bld) [Volum e fraction]Ordered By: Anibal Valle on 06-05-2023 Hematocrit (Bld) [Volume fraction] 34.4 % 34.0-46.[address] [facility] Hemoglobin [Mass/volume] in BloodOrdered By: Anibal Valle on 06-05-2023 Hemoglobin (Bld) [Mass/Vol] 11.9 g/dL 11.8-15.[address] [facility] Laboratory - CoagulationOrde red By: Anibal Valle on 06-05-2023 PT Coag (PPP) [Time] 12.0 s 9.0-12.9 [facility] Leukocytes [#/volume] correc herbert for nucleated erythrocytes in Blood by Automated counOrdered By: Anibal Valle on 06-05-2023 WBC corrected for nucl RBC Auto (Bld) [#/Vol] 4.4 10*3/uL 3.8-11.[address] [facility] Lymphocytes Auto (Bld) [#/Vo l]Ordered By: Anibal Valle on 06-05-2023 Lymphocytes (Bld) [#/Vol] 1.8 10*3/uL 1.00-4.[address] [facility] Lymphocytes/100 WBC Auto (Bl d)Ordered By: Anibal Valle on 06-05-2023 Lymphocytes/100 WBC (Bld) 41.0 % . [facility] MCH Auto (RBC) [Entitic mass ]Ordered By: Anibal Valle on 06-05-2023 MCH (RBC) [Entitic mass] 27.7 pg 24.7-34.[address] [facility] MCHC Auto (RBC) [Mass/Vol]Or dered By: Anibal Valle on 06-05-2023 MCHC (RBC) [Mass/Vol] 34.5 g/dL 32.0-35.0 [facility] MCV Auto (RBC) [Entitic vol] Ordered By: Anibal Valle on 06-05-2023 MCV (RBC) [Entitic vol] 80.2 fL 80-[address] [facility] Monocyte distribution width [Entitic volume] in Blood by AutomatedOrdered By: Anibal Valle on 06-05-2023 Monocyte distribution width Auto (Bld) [Entitic vol] 24.18 % 0.00-20.[address] [facility] Comment on above: For adults in ED, MD W > 20.0 may be associated with a higher risk of sepsis during the first 12 hrs of hospital admission Monocytes Auto (Bld) [#/Vol] Ordered By: Anibal Valle on 06-05-2023 Monocytes (Bld) [#/Vol] 0.3 10*3/uL 0.0-0.[address] [facility] Monocytes/100 WBC Auto (Bld) Ordered By: Anibal Valle on 06-05-2023 Monocytes/100 WBC (Bld) 7.5 % . [facility] Natriuretic peptide B [Mass/ Vol]Ordered By: Anibal Valle on 06-05-2023 Natriuretic peptide B (Bld) [Mass/Vol] 39.0 pg/mL 5-[address] [facility] Neutrophils Auto (Bld) [#/Vo l]Ordered By: Anibal Valle on 06-05-2023 Neutrophils (Bld) [#/Vol] 2.2 10*3/uL 1.8-7.[address] [facility] Neutrophils/100 WBC Auto (Bl d)Ordered By: Anibal Valle on 06-05-2023 Neutrophils/100 WBC (Bld) 49.2 % . [facility] No Panel InformationOrdered By: Anibal Valle on 06-05-2023 Estimated GFR (CKD-EPI) > 60.0 mL/Min [facility] Creatinine Clearance (Chem 97.[address] [facility] Nucleated erythrocytes [Pres ence] in Blood by Automated countOrdered By: Anibal Valle on 06-05-2023 Nucleated RBC Auto Ql (Bld) 0.1 /100{WBC} 0-0.[address] [facility] Platelet mean volume Auto (B ld) [Entitic vol]Ordered By: Anibal Valle on 06-05-2023 Platelet mean volume (Bld) [Entitic vol] 7.4 fL 6.3-10.[address] [facility] Platelet poor plasma interna tional normalized ratio (INR) by coagulation assay (relatOrdered By: Anibal Valle on 06-05-2023 INR Coag (PPP) [Relative time] 1.0 {INR} [facility] Comment on above: INR Therapeutic Rang [...] 06-05-2023 Platelets (Bld) [#/Vol] 336 10*3/uL 150-[address] [facility] Potassium [Moles/volume] in Serum or PlasmaOrdered By: Anibal Valle on 06-05-2023 Potassium [Moles/Vol] 3.8 mmol/L 3.5-5.1 [facility] RBC Auto (Bld) [#/Vol]Ordere d By: Anibal Valle on 06-05-2023 RBC (Bld) [#/Vol] 4.29 10*6/uL 3.60-5.00 [facility] Serum or plasma anion gap de terminationOrdered By: Anibal Valle on 06-05-2023 Anion gap [Moles/Vol] 10.6 mmol/L 6.0-15.0 [facility] Sodium [Moles/volume] in Ser um or PlasmaOrdered By: Anibal Valle on 06-05-2023 Sodium [Moles/Vol] 138 mmol/L 136-145 [facility] Troponin I.cardiac [Mass/vol ume] in Serum or Plasma by Detection limit <= 0.01 ng/Ordered By: Anibal Valle on 06-05-2023 Troponin I.cardiac DL <= 0.01 ng/mL [Mass/Vol] 2.6 pg/mL 0.0-15.[address] [facility] Urea nitrogen [Mass/volume] in Serum or PlasmaOrdered By: Anibal Valle on 06-05-2023 Urea nitrogen [Mass/Vol] 10 mg/dL 7-[address] [facility] WBC Auto (Bld) [#/Vol]Ordere d By: Anibal Valle on 06-05-2023 WBC (Bld) [#/Vol] 4.4 10*3/uL 3.8-11.6 [facility] CBC AUTO DIFFon 04-05-2023 BASO # 0.0 103/ul Normal 0.0-0.1 [facility] Comment on above: Performed By: #### L ACT #### [facility] [address] [address] [address] Mirian Velasco Basophils/100 WBC (Bld) 0.8 % Normal 0.2-2.0 [facility] Comment on above: Performed By: #### L ACT #### [facility] [address] [place] [address] Dr. Mirian Velasco EO # 0.1 103/ul Normal 0.0-0.7 [facility] Comment on above: Performed By: #### L ACT #### [facility] [address] [address] [address] Mirian Velasco Eosinophils/100 WBC (Bld) 1.1 % Normal 0.9-7.0 [facility] Comment on above: Performed By: #### L ACT #### [facility] [address] [place] [address] Dr. Mirian Velasco Erythrocyte distribution width (RBC) [Ratio] 13.1 % Normal 11.0-15.0 [facility] Comment on above: Performed By: #### L ACT #### [facility] [address] [address] [address] Mirian Velasco Hematocrit (Bld) [Volume fraction] 37.6 % Normal 36.0-48.0 [facility] Comment on above: Performed By: #### L ACT #### [facility] [address] [address] [address] Mirian Velasco Hemoglobin (Bld) [Mass/Vol] 12.4 g/dL Normal 12.0-16.0 [facility] Comment on above: Performed By: #### L ACT #### [facility] [address] [place] [address] Dr. Mirian Velasco IG # 0.01 10e3/ul Normal 0.00-0.03 [facility] Comment on above: Performed By: #### L ACT #### [facility] [address] [place] [address] Dr. Mirian Velasco IG % 0.2 % Normal 0.0-0.5 [facility] Comment on above: Performed By: #### L ACT #### [facility] [address] [place] [address] Dr. Mirian Velasco LYMPH # 2.5 103/ul Normal 1.2-3.8 [facility] Comment on above: Performed By: #### L ACT #### [facility] [address] [place] [address] Dr. Mirian Velasco Lymphocytes/100 WBC (Bld) 46.2 % Normal 20.5-60.0 [facility] Comment on above: Performed By: #### L ACT #### [facility] [address] [place] [address] Dr. Mirian Velasco MANUAL DIFF REQ NO Normal [facility] Comment on above: Performed By: #### L ACT #### [facility] [address] [place] [address] Dr. Mirian Velasco MCH (RBC) [Entitic mass] 27.1 pg Normal 26.7-34.0 [facility] Comment on above: Performed By: #### L ACT #### [facility] [address] [place] [address] Dr. Mirian Velasco MCHC (RBC) [Mass/Vol] 33.0 g/dL Normal 29.9-35.2 [facility] Comment on above: Performed By: #### L ACT #### [facility] [address] [place] [address] Dr. Mirian Velasco MCV (RBC) [Entitic vol] 82.3 fL Normal 81.0-99.0 [facility] Comment on above: Performed By: #### L ACT #### [facility] [address] [place] [address] Dr. Mirian Velasco MONO # 0.4 103/ul Normal 0.3-0.8 [facility] Comment on above: Performed By: #### L ACT #### [facility] [address] [place] [address] Dr. Mirian Velasco Monocytes/100 WBC (Bld) 7.9 % Normal 1.7-12.0 [facility] Comment on above: Performed By: #### L ACT #### [facility] [address] [place] [address] Dr. Mirian Velasco NEUT # 2.3 103/ul Normal 1.4-6.5 [facility] Comment on above: Performed By: #### L ACT #### [facility] [address] [place] [address] Dr. Mirian Velasco Neutrophils/100 WBC (Bld) 43.8 % Normal 43.0-75.0 [facility] Comment on above: Performed By: #### L ACT #### [facility] [address] [place] [address] Dr. Mirian Velasco Platelet mean volume (Bld) [Entitic vol] 9.2 fL Critically low 9.5-13.5 [facility] Comment on above: Performed By: #### L ACT #### [facility] [address] [place] [address] Dr. Mirian Velasco PLT 318 103/ul Normal 150-450 [facility] Comment on above: Performed By: #### L ACT #### [facility] [address] [place] [address] Dr. Mirian Velasco RBC 4.57 106/ul Normal 4.20-5.40 [facility] [facility] Comment on above: Performed By: #### L ACT #### [facility] [address] [place] [address] Dr. Mirian Velasco WBC 5.3 103/ul Normal 4.0-11.0 [facility] Comment on above: Performed By: #### L ACT #### [facility] [address] [place] [address] Dr. Mirian Velasco PROF CHEM 8 (BAS METB)on Anion gap [Moles/Vol] 19.0 mmol/L Normal [facility] Comment on above: Performed By: #### H STROROSALIO, BMP ####[facility] [address] [address]Dr. Mirian Velasco Calcium [Mass/Vol] 9.6 mg/dL Normal 8.5-10.1 [facility] Comment on above: Performed By: #### H STROPN, BMP ####[facility] [address] [address]Dr. Mercedesnatalie Velasco Chloride [Moles/Vol] 103 mmol/L Normal 98-107 [facility] Comment on above: Performed By: #### H FAUSTO, BMP ####[facility] [address] [place], [place] [address]Dr. Mercedesnatalie Velasco CO2 [Moles/Vol] 23.1 mmol/L Normal 21.0-32.0 [facility] Comment on above: Performed By: #### H FAUSTO, BMP ####[facility] [address] [place], [place] [address]Dr. Mercedesnatalie Velasco Creatinine [Mass/Vol] 0.84 mg/dL Normal 0.55-1.02 [facility] Comment on above: Performed By: #### H FAUSTO, BMP ####[facility] [address] [place], [place] [address]Dr. Mercedesnatalie Sanjiv EGFR-AF SAMOAN >60 Normal >=60 [facility] Comment on above: Performed By: #### H FAUSTO, BMP ####[facility] [address] [address]Dr. Mercedesnatalie Sanjiv EGFR-NON AF SAMOAN >60 Normal >=60 [facility] Comment on above: Performed By: #### H STROPN, BMP ####[facility] [address] [place], [place] [address]Dr. Mercedesnatalie Velasco Glucose [Mass/Vol] 129 mg/dL Critically high 74-106 [facility] Comment on above: Performed By: #### H STROPN, BMP ####[facility] [address] [place], [place] [address]Dr. Mirian Velasco Potassium [Moles/Vol] 3.1 mmol/L Critically low 3.5-5.1 [facility] Comment on above: Performed By: #### H FAUSTO, BMP ####[facility] [address] [id number] Velasco Sodium [Moles/Vol] 142 mmol/L Normal 136-145 [facility] Comment on above: Performed By: #### H FAUSTO, BMP ####[facility] [address] [address]Dr. Mirian Velasco Urea nitrogen [Mass/Vol] 12.0 mg/dL Normal 7.0-18.0 [facility] Comment on above: Performed By: #### H FAUSTO, BMP ####[facility] [address] [address]DrReno Velasco Urea nitrogen/Creatinine [Mass ratio] 14.3 mg/mg Normal [facility] Comment on above: Performed By: #### H FAUSTO, BMP ####[facility] [address] [address]Dr. Mirian Velasco TROPONIN, HIGH SENSITIVITYon 04-05-2023 HSTROP 5.6 pg/mL Normal 4.0-51.3 [facility] Comment on above: Result Comment: CUT- OFF POINTS HAVE BEEN ESTABLISHED BASED ON THE FOURTH UNIVERSAL DEFINITIONS OF MYOCARDIAL INFARCTION. THE UPPER REFERENCE LIMIT (URL) OF TROPONIN, DEFINED THE 99TH PERCENTILE OF cTnI DISTRIBUTION IN A REFERENCE POPULATION, HAS BEEN CONFIRMED THE DECISION THRESHOLD FOR DE DIAGNOSIS. Performed By: #### H FAUSTO, BMP ####[facility] [address] [address]DrReno Velasco CBC AUTO DIFFon 03-06-2023 BASO # 0.1 103/ul Normal 0.0-0.1 [facility] Comment on above: Performed By: #### L ACT #### [facility] [id number] Mirian Velasco Basophils/100 WBC (Bld) 0.8 % Normal 0.2-2.0 [facility] Comment on above: Performed By: #### L ACT #### [facility] [address] [place] [address] Dr. Mirian Velasco EO # 0.1 103/ul Normal 0.0-0.7 [facility] Comment on above: Performed By: #### L ACT #### [facility] [address] [place] [address] Dr. Mirian Velasco Eosinophils/100 WBC (Bld) 1.4 % Normal 0.9-7.0 [facility] Comment on above: Performed By: #### L ACT #### [facility] [address] [place] [address] Dr. Mirian Velasco Erythrocyte distribution width (RBC) [Ratio] 13.1 % Normal 11.0-15.0 [facility] Comment on above: Performed By: #### L ACT #### [facility] [address] [place] [address] Dr. Mirian Velasco Hematocrit (Bld) [Volume fraction] 37.9 % Normal 36.0-48.0 [facility] Comment on above: Performed By: #### L ACT #### [facility] [address] [place] [address] Dr. Mirian Velasco Hemoglobin (Bld) [Mass/Vol] 12.7 g/dL Normal 12.0-16.0 [facility] Comment on above: Performed By: #### L ACT #### [facility] [address] [place] [address] Dr. Mirian Velasco IG # 0.01 10e3/ul Normal 0.00-0.03 [facility] Comment on above: Performed By: #### L ACT #### [facility] [address] [place] [address] Dr. Mirian Velsaco IG % 0.2 % Normal 0.0-0.5 [facility] Comment on above: Performed By: #### L ACT #### [facility] [address] [place] [address] Dr. Mirian Velasco LYMPH # 1.8 103/ul Normal 1.2-3.8 [facility] Comment on above: Performed By: #### L ACT #### [facility] [address] [address] [address] Mirian Velasco Lymphocytes/100 WBC (Bld) 27.2 % Normal 20.5-60.0 [facility] Comment on above: Performed By: #### L ACT #### [facility] [address] [address] [address] Mirian Velasco MANUAL DIFF REQ NO Normal [facility] Comment on above: Performed By: #### L ACT #### [facility] [address] [address] [address] Mirian Velasco MCH (RBC) [Entitic mass] 27.5 pg Normal 26.7-34.0 [facility] Comment on above: Performed By: #### L ACT #### [facility] [address] [place] [address] Dr. Mirian Velasco MCHC (RBC) [Mass/Vol] 33.5 g/dL Normal 29.9-35.2 [facility] Comment on above: Performed By: #### L ACT #### [facility] [address] [place] [address] Dr. Mirian Velasco MCV (RBC) [Entitic vol] 82.0 fL Normal 81.0-99.0 [facility] Comment on above: Performed By: #### L ACT #### [facility] [address] [place] [address] Dr. Mirian Velasco MONO # 0.4 103/ul Normal 0.3-0.8 [facility] Comment on above: Performed By: #### L ACT #### [facility] [address] [place] [address] Dr. Mirian Velasco Monocytes/100 WBC (Bld) 5.5 % Normal 1.7-12.0 [facility] Comment on above: Performed By: #### L ACT #### [facility] [address] [place] [address] Dr. Mirian Velasco NEUT # 4.3 103/ul Normal 1.4-6.5 [facility] Comment on above: Performed By: #### L ACT #### [facility] [address] [place] [address] Dr. Mirian Velasco Neutrophils/100 WBC (Bld) 64.9 % Normal 43.0-75.0 [facility] Comment on above: Performed By: #### L ACT #### [facility] [address] [place] [address] Dr. Mirian Velasco Platelet mean volume (Bld) [Entitic vol] 9.4 fL Critically low 9.5-13.5 [facility] Comment on above: Performed By: #### L ACT #### [facility] [address] [place] [address] Dr. Mirian Velasco PLT 317 103/ul Normal 150-450 [facility] Comment on above: Performed By: #### L ACT #### [facility] [address] [place] [address] Dr. Mirian Velasco RBC 4.62 106/ul Normal 4.20-5.40 [facility] Comment on above: Performed By: #### L ACT #### [facility] [address] [place] [address] Dr. Mirian Velasco WBC 6.6 103/ul Normal 4.0-11.0 [facility] Comment on above: Performed By: #### L ACT #### [facility] [address] [place] [address] Dr. Mirian Velasco CULTURE BLOODon 03-06-2023 Microscopic examination of blood, culture Culture Observations: NO GROWTH AT 5 DAYS. Normal [facility] Comment on above: Performed By: #### B LDCX2 ####[facility] [address] [address]Dr. Mirian Velasco Microscopic examination of blood, culture Culture Observations: NO GROWTH AT 5 DAYS. Normal [facility] Comment on above: Performed By: #### B LDCX1 #### [facility] [address] [place] [address] Dr. Mirian Velasco LACTATE/LACTIC ACIDon 2022 Lactate [Moles/Vol] 2.2 mmol/L Critically high 0.4-2.0 [facility] Comment on above: Performed By: #### L ACT #### [facility] [address] [address] [address] Mirian Velasco LIPASEon 03-06-2023 Lipase [Catalytic activity/Vol] 53.0 U/L Critically low 73.0-393.0 [facility] Comment on above: Performed By: #### L ACT #### [facility] [address] [place] [address] Dr. Mirian Velasco PROF 14(COMP METB)on 023 Albumin [Mass/Vol] 3.4 g/dL Normal 3.4-5.0 [facility] Comment on above: Performed By: #### L ACT #### [facility] [address] [place] [address] Dr. Mirian Velasco Albumin/Globulin [Mass ratio] 1.0 {ratio} Normal [facility] Comment on above: Performed By: #### L ACT #### [facility] [address] [place] [address] Dr. Mirian Velasco ALP [Catalytic activity/Vol] 123 U/L Critically high 46-116 [facility] Comment on above: Performed By: #### L ACT #### [facility] [address] [place] [address] Dr. Mirian Velasco ALT [Catalytic activity/Vol] 33 U/L Normal 14-59 [facility] Comment on above: Performed By: #### L ACT #### [facility] [address] [place] [address] Dr. Mirian Velasco Anion gap [Moles/Vol] 13.1 mmol/L Normal [facility] Comment on above: Performed By: #### L ACT #### [facility] [address] [place] [address] Dr. Mirian Velasco AST [Catalytic activity/Vol] 31 U/L Normal 15-37 [facility] Comment on above: Performed By: #### L ACT #### [facility] [address] [place] [address] Dr. Mirian Velasco Bilirubin [Mass/Vol] 0.3 mg/dL Normal 0.2-1.0 [facility] Comment on above: Performed By: #### L ACT #### [facility] [address] [address] [address] Mirian Velasco Calcium [Mass/Vol] 8.9 mg/dL Normal 8.5-10.1 [facility] Comment on above: Performed By: #### L ACT #### [facility] [address] [address] [address] Mirian Velasco Chloride [Moles/Vol] 107 mmol/L Normal 98-107 [facility] Comment on above: Performed By: #### L ACT #### [facility] [address] [address] [address] Mirian Velasco CO2 [Moles/Vol] 25.6 mmol/L Normal 21.0-32.0 [facility] Comment on above: Performed By: #### L ACT #### [facility] [address] [place] [address] Dr. Mirian Velasco Creatinine [Mass/Vol] 0.70 mg/dL Normal 0.55-1.02 [facility] Comment on above: Performed By: #### L ACT #### [facility] [address] [place] [address] Dr. Mirian Velasco EGFR-AF SAMOAN >60 Normal >=60 [facility] Comment on above: Performed By: #### L ACT #### [facility] [address] [place] [address] Dr. Mirian Velasco EGFR-NON AF SAMOAN >60 Normal >=60 [facility] Comment on above: Performed By: #### L ACT #### [facility] [address] [address] [address] Mirian Velasco Globulin (S) [Mass/Vol] 3.4 g/dL Normal [facility] Comment on above: Performed By: #### L ACT #### [facility] [address] [place] [address] Dr. Mirian Velasco Glucose [Mass/Vol] 125 mg/dL Critically high 74-[address] [facility] Comment on above: Performed By: #### L ACT #### [facility] [address] [address] [address] Mirian Velasco Potassium [Moles/Vol] 3.7 mmol/L Normal 3.5-5.1 [facility] Comment on above: Performed By: #### L ACT #### [facility] [address] [address] [address] Mirian Velasco Protein [Mass/Vol] 6.8 g/dL Normal 6.4-8.2 [facility] Comment on above: Performed By: #### L ACT #### [facility] [address] [address] [address] Mirian Velasco Sodium [Moles/Vol] 142 mmol/L Normal 136-145 [facility] Comment on above: Performed By: #### L ACT #### [facility] [address] [place] [address] Dr. Mirian Velasco Urea nitrogen [Mass/Vol] 16.0 mg/dL Normal 7.0-18.0 [facility] Comment on above: Performed By: #### L ACT #### [facility] [address] [address] [address] Mirian Velasco Urea nitrogen/Creatinine [Mass ratio] 22.9 mg/mg Normal [facility] Comment on above: Performed By: #### L ACT #### [facility] [address] [place] [address] Dr. Mirian Velasco PROTIMEon 03-06-2023 INR Coag (PPP) [Relative time] {INR} Normal [facility] Comment on above: Performed By: #### P T #### [facility] [address] [place] [address] Dr. Mirian Velasco INR GUIDELINES SEE BELOW Normal [facility] Comment on above: Result Comment: SAMEER RED INR: 2.0 - 3.0 CONDITIONS NOT LISTED BELOW 2.5 - 3.5 FOR PROSTHETIC HEART VALVE REPLACEMENT 2.5 - 3.5 RECURRENT THROMBOSIS Performed By: #### P T #### [facility] [address] [place] [address] Dr. Mirian Velasco PT Coag (PPP) [Time] 9.8 s Normal 9.0-11.6 [facility] Comment on above: Performed By: #### P T #### [facility] [address] [address] [address] Mirian Velasco TROPONIN, HIGH SENSITIVITYon 03-06-2023 HSTROP 4.4 pg/mL Normal 4.0-51.3 [facility] Comment on above: Result Comment: CUT- OFF POINTS HAVE BEEN ESTABLISHED BASED ON THE FOURTH UNIVERSAL DEFINITIONS OF MYOCARDIAL INFARCTION. THE UPPER REFERENCE LIMIT (URL) OF TROPONIN, DEFINED THE 99TH PERCENTILE OF cTnI DISTRIBUTION IN A REFERENCE POPULATION, HAS BEEN CONFIRMED THE DECISION THRESHOLD FOR DE DIAGNOSIS. Performed By: #### L ACT #### [facility] [address] [place], [place] [address] Dr. Mirian Velasco Bacteria identified Aer cx N om (Unsp spec)Ordered By: Niecy Duron on 03-02-2023 Superficial Wound Culture Methicillin Resis Staph Aureus [facility] CT LSPINE WO CONon CT LSPINE [...] by: NANCY BELLE Date: 2023-02-19 06:42 Normal [facility] XR ESOPHAGRAMon 12-26-2022 [facility] NURSING PROGon 12-08-2022 NURSING PROG HNO ID: [id number] Author: Lisa Contreras, RN Service: Nursing Author Type: Registered Nurse Type: Nursing Progress Note Filed: 12/08/2022 11:28 AM Note Text: [facility] POST PROCEDURE FOLLOW UP CALL [phone] (home) Date Phone Call Made: 12/08/2022 Attempt: [...] experience more pleasant? No Lisa Contreras, RN [facility] ANES POSTPROC EVALon 023 ANES POSTPROC EVAL HNO ID: [id number] Author: Andres Sheets DO Service: Anesthesiology Author Type: Anesthesiologist Type: Anesthesia Postprocedure Evaluation Filed: 12/07/2022 12:44 PM Note Text: POST ANESTHESIA EVALUATION NOTE : 1970 Procedure Summary Date: 12/07/22 Room / Location: [facility] Anesthesia Start: 1034 Anesthesia Stop: 1055 [...] December 07, 2022 TIME: 12:44 PM CSN: [id number] [facility] ANES PRE-OPon 12-07-2022 ANES PRE-OP HNO ID: [id number] Author: Andres Sheets DO Service: Anesthesiology Author Type: Anesthesiologist Type: Anesthesia Preprocedure Evaluation Filed: 12/07/2022 9:42 AM Note Text: ANESTHESIOLOGY DAY OF SURGERY NOTE : 1970 Procedure Information Date/Time: 12/07/22 1030 Scheduled providers: Winston Hannah DO Procedures: EGD - THERAPEUTIC, EUS, OR TUBE INTERVENTIONS PH MONTIEL INSERT OFF MEDS Location: [facility] Estimated body mass index is 24.55 [...] December 07, 2022 TIME: 9:40 AM CSN: [id number] [facility] HISTORY PHYSICALon HISTORY PHYSICAL HNO ID: [id number] Author: Soraida Mathis PA-C Service: Gastroenterology Author Type: Physician It Training Specialist Type: HANDP Filed: 12/07/2022 9:48 AM [...] ALLERGIES Allergies: Risperidone Intolerance Comment:Breast discharge SEE [facility] BP 109/74 Pulse 91 [...] 12/07/2022 TIME: 9:41 AM Normal [facility] Upper GI endoscopyon 023 Upper GI endoscopy [facility] Gastrointestinal Endoscopy Patient Name: Mary [...] by the physician, the nurse and the chucking lathe operator in the pre-procedure area in the [...] previously scheduled. Procedure Code(s): --- Professional --- 10322, Esophagogastroduodenos copy, flexible, transoral; with dilation of gastric/duodenal stricture(s) (eg, balloon, bougie) Diagnosis Code(s): --- Professional --- K21.00, Gastro-esophageal reflux disease with esophagitis, without bleeding K31.84, Gastroparesis CPT copyright 2020 [employer]. All rights reserved. The codes documented in this report are preliminary and upon public health director review may be revised to meet current compliance requirements. Attending Participation: I personally performed the entire procedure. Scope In: 10:39:12 AM Scope Out: 10:46:13 AM MD Winston Diaz MD 12/07/2022 10 (more content not included)... Normal [facility] ANES POSTPROC EVALon 023 ANES POSTPROC EVAL HNO ID: [id number] Author: Annabel Burton MD Service: Anesthesiology Author Type: Physician Type: Anesthesia Postprocedure Evaluation Filed: 12/05/2022 2:01 PM Note Text: POST ANESTHESIA EVALUATION NOTE : 1970 Procedure Summary Date: 12/05/22 Room / Location: [facility] Anesthesia Start: 900 Anesthesia Stop: 0918 Procedure: SIGMOIDOSCOPY Diagnosis: Chronic idiopathic constipation (Constipation) [...] December 05, 2022 TIME: 2:00 PM CSN: [id number] [facility] ANES PRE-OPon 12-05-2022 ANES PRE-OP HNO ID: [id number] Author: Annabel Burton MD Service: Anesthesiology Author Type: Physician Type: Anesthesia Preprocedure Evaluation Filed: 12/05/2022 8:28 AM Note Text: ANESTHESIOLOGY DAY OF SURGERY NOTE : 1970 Procedure Information Date/Time: 12/05/22 0900 Scheduled providers: Isra Masters DO Procedure: SIGMOIDOSCOPY Location: [facility] Estimated body mass index is 24.55 [...] December 05, 2022 TIME: 8:26 AM CSN: [id number] Normal [facility] Flexible Sigmoidoscopyon Flexible sigmoidoscopy [facility] Gastrointestinal Endoscopy Patient Name: Mary Leal Procedure Date: 12/05/2022 8:55 AM Date of : 1970 Admit Type: Outpatient Age: 52 Room: [place] [address] Gender: Female Note Status: Finalized Attending MD: [...] present medications. Procedure Code(s): --- Professional --- 32628, 52, Sigmoidoscopy, flexible; diagnostic, including collection of specimen(s) by brushing or washing, when performed (separate procedure) Diagnosis Code(s): --- Professional --- K59.00, Constipation, unspecified CPT copyright 2020 [employer]. All rights reserved. The codes documented in this report are preliminary and upon public health director review may be revised to meet current compliance requirements. Attending Participation: I personally performed the entire procedure. Scope In: 9:07:04 AM Scope Out: 9:09:45 AM DO Isra Chen DO 12/05/2022 9:13:05 AM This report has been signed electronically by Isra Masters DO Number of Addenda: 0 Note Initiated On: 12/05/2022 8:55 AM Estimated Blood Loss: Estimated blood loss: none. Normal [facility] HISTORY PHYSICALon HISTORY PHYSICAL HNO ID: [id number] Author: Lashanda Dorado PA-C Service: Gastroenterology Author Type: Physician It Training Specialist Type: HANDP Filed: 12/05/2022 8:43 AM [...] ALLERGIES Allergies: Risperidone Intolerance Comment:Breast discharge SEE [facility] There were no vitals [...] 12/05/2022 TIME: 8:42 AM Normal [facility] NURSING PROGon 12-05-2022 NURSING PROG HNO ID: [id number] Author: Lisa Contreras RN Service: ? Author Type: Registered Nurse Type: Nursing Progress Note Filed: 12/05/2022 1:07 PM Note Text: [facility] ENDOSCOPY PRE PROCEDURE CALL Akiko. I'm calling from [facility] endoscopy to provide you with the information for your surgery/procedure tomorrow. 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 tbd What is the best number for your xm1 tank driver to be reached at tomorrow for updates? tbd Your xm1 tank driver is allowed to wait here with [...] Do not wear makeup, lotion, or finger cameroonian. yes Patient instructed: Please bring a list [...] given Any barriers to Patient learning (confusion? Catapult And Arresting Gear Officer needed?): Patient/Patient Apparel Embroidery Digitizer responded appropriately on phone. If patient needs to reschedule please call: [phone] [facility] phone number: [phone] Type of instruction given: Verbal by telephone contact. Normal [facility] NURSING PROGon 12-02-2022 NURSING PROG HNO ID: [id number] Author: Isra Harman RN Service: ? Author Type: Registered Nurse Type: Nursing Progress Note Filed: 12/02/2022 10:54 AM Note Text: [facility] ENDOSCOPY PRE PROCEDURE CALL Akiko. I'm calling from [facility] endoscopy to provide you with the information for your surgery/procedure tomorrow. 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 Rich What is the best number for your xm1 tank driver to be reached at tomorrow for updates? [phone] Your xm1 tank driver is allowed to wait here with [...] Do not wear makeup, lotion, or finger cameroonian. yes Patient instructed: Please bring a list [...] given Any barriers to Patient learning (confusion? Catapult And Arresting Gear Officer needed?): Patient/Patient Apparel Embroidery Digitizer responded appropriately on phone. If patient needs to reschedule please call: [phone] [facility] phone number: [phone] Type of instruction given: Verbal by telephone contact. Normal [facility] AMYLASEon 10-20-2022 Amylase [Catalytic activity/Vol] 33 U/L Normal 25-115 [facility] Comment on above: Performed By: #### L ACT #### [facility] [address] [place], [place] [address] Dr. Mirian Velasco CBC AUTO DIFFon 10-20-2022 BASO # 0.0 103/ul Normal 0.0-0.1 [facility] Comment on above: Performed By: #### P T #### [facility] [address] [place] [address] [address] Mirian Velasco Basophils/100 WBC (Bld) 0.2 % Normal 0.2-2.0 [facility] Comment on above: Performed By: #### P T #### [facility] [address] [place] [address] Dr. Mirian Velasco EO # 0.1 103/ul Normal 0.0-0.7 [facility] Comment on above: Performed By: #### P T #### [facility] [address] [address] [address] Mirian Velasco Eosinophils/100 WBC (Bld) 0.6 % Critically low 0.9-7.0 [facility] Comment on above: Performed By: #### P T #### [facility] [address] [place] [address] Dr. Mirian Velasco Erythrocyte distribution width (RBC) [Ratio] 13.6 % Normal 11.0-15.0 [facility] Comment on above: Performed By: #### P T #### [facility] [address] [place] [address] Dr. Mirian Velasco Hematocrit (Bld) [Volume fraction] 41.0 % Normal 36.0-48.0 [facility] Comment on above: Performed By: #### P T #### [facility] [address] [place] [address] Dr. Mirian Velasco Hemoglobin (Bld) [Mass/Vol] 13.5 g/dL Normal 12.0-16.0 [facility] Comment on above: Performed By: #### P T #### [facility] [address] [place] [address] Dr. Mirian Velasco IG # 0.06 10e3/ul Critically high 0.00-0.03 [facility] Comment on above: Performed By: #### P T #### [facility] [address] [place] [address] Dr. Mirian Velasco IG % 0.4 % Normal 0.0-0.5 [facility] Comment on above: Performed By: #### P T #### [facility] [address] [place] [address] Dr. Mirian Velasco LYMPH # 2.5 103/ul Normal 1.2-3.8 [facility] Comment on above: Performed By: #### P T #### [facility] [address] [place] [address] Dr. Mirian Velasco Lymphocytes/100 WBC (Bld) 17.5 % Critically low 20.5-60.0 [facility] Comment on above: Performed By: #### P T #### [facility] [address] [place] [address] Dr. Mirian Velasco MANUAL DIFF REQ NO Normal [facility] Comment on above: Performed By: #### P T #### [facility] [address] [place] [address] Dr. Mirian Velasco MCH (RBC) [Entitic mass] 28.1 pg Normal 26.7-34.0 [facility] Comment on above: Performed By: #### P T #### [facility] [address] [place] [address] Dr. Mirian Velasco MCHC (RBC) [Mass/Vol] 32.9 g/dL Normal 29.9-35.2 [facility] Comment on above: Performed By: #### P T #### [facility] [address] [place] [address] Dr. Mirian Velasco MCV (RBC) [Entitic vol] 85.2 fL Normal 81.0-99.0 [facility] Comment on above: Performed By: #### P T #### [facility] [address] [place] [address] Dr. Mirian Velasco MONO # 0.7 103/ul Normal 0.3-0.8 [facility] Comment on above: Performed By: #### P T #### [facility] [address] [place] [address] Dr. Mirian Velasco Monocytes/100 WBC (Bld) 4.5 % Normal 1.7-12.0 [facility] Comment on above: Performed By: #### P T #### [facility] [address] [place] [address] Dr. Mirian Velasco NEUT # 11.0 103/ul Critically high 1.4-6.5 [facility] Comment on above: Performed By: #### P T #### [facility] [address] [place] [address] Dr. Mirian Velasco Neutrophils/100 WBC (Bld) 76.8 % Critically high 43.0-75.0 [facility] Comment on above: Performed By: #### P T #### [facility] [address] [place] [address] Dr. Mirian Velasco Platelet mean volume (Bld) [Entitic vol] 8.7 fL Critically low 9.5-13.5 [facility] Comment on above: Performed By: #### P T #### [facility] [address] [place] [address] Dr. Mirian Velasco PLT 390 103/ul Normal 150-450 [facility] Comment on above: Performed By: #### P T #### [facility] [address] [place] [address] Dr. Mirian Velasco RBC 4.81 106/ul Normal 4.20-5.40 [facility] Comment on above: Performed By: #### P T #### [facility] [address] [place] [address] Dr. Mirian Velasco WBC 14.3 103/ul Critically high 4.0-11.0 [facility] Comment on above: Performed By: #### P T #### [facility] [address] [place] [address] ABD/PELV W CONon [...] Date: 2022-10-20 12:35 Normal [facility] CULTURE BLOODon 10-20-2022 Microscopic examination of blood, culture Culture Observations: NO GROWTH AT 5 DAYS. Normal [facility] Comment on above: Performed By: #### B [id number] ####[facility] [id number] [address]Dr. Mirian Velasco Microscopic examination of blood, culture Culture Observations: NO GROWTH AT 5 DAYS. Normal [facility] Comment on above: Performed By: #### B [id number] #### [facility] [address] [address] [address] 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 NO POTENTIAL PATHOGENS SEEN. Normal [facility] Comment on above: Performed By: #### U RCX #### [facility] [address] [address] [address] Mirina Velasco ER URINE PROFILEon 2 Bilirubin Ql (U) Negative Normal NEGATIVE [facility] Comment on above: Performed By: #### P T #### [facility] [address] [address] [address] Mirian Velasco Clarity (U) CLEAR Normal CLEAR [facility] Comment on above: Performed By: #### P T #### [facility] [address] [place] [address] Dr. Mirian Velasco Color (U) LT. YELLOW Normal YELLOW [facility] Comment on above: Performed By: #### P T #### [facility] [address] [place] [address] Dr. Mirian Velasco ERUAHD A micrscopic examination will be performed if indicated. Normal [facility] Comment on above: Performed By: #### P T #### [facility] [address] [place] [address] Dr. Mirian Velasco Glucose Ql (U) Negative Normal NEGATIVE [facility] [place] Comment on above: Performed By: #### P T #### [facility] [address] [place] [address] Dr. Mirian Velasco Hemoglobin Ql (U) Negative Normal NEGATIVE [facility] Comment on above: Performed By: #### P T #### [facility] [address] [place] [address] Dr. Mirian Velasco Ketones Ql (U) Negative Normal NEGATIVE [facility] [place] Comment on above: Performed By: #### P T #### [facility] [address] [place] [address] Dr. Mirian Velasco LEUKOCYTES SMALL Abnormal NEGATIVE [facility] Comment on above: Performed By: #### P T #### [facility] [address] [place] [address] Dr. Mirian Velasco Nitrite Ql (U) Negative Normal NEGATIVE [facility] [place] Comment on above: Performed By: #### P T #### [facility] [address] [place] [address] Dr. Mirian Velasco pH (U) 7.0 [pH] Normal 5-9 [facility] Comment on above: Performed By: #### P T #### [facility] [address] [place] [address] Dr. Mirian Velasco SPEC GRAVITY 1.015 Normal 1.005-<=1.025 [facility] Comment on above: Performed By: #### P T #### [facility] [address] [place] [address] Dr. Mirian Velasco UA PROTEIN Negative Normal NEGATIVE/ TRACE [facility] Comment on above: Performed By: #### P T #### [facility] [address] [place] [address] Dr. Mirian Velasco UR MICRO IND INDICATED Normal [facility] Comment on above: Performed By: #### P T #### [facility] [address] [place] [address] Dr. Mirian Velasco Urobilinogen Qn (U) 0.2 {Lyubov'U}/dL Normal 0.2 - 1. 0 [facility] Comment on above: Performed By: #### P T #### [facility] [address] [place] [address] Dr. Mirian Velasco LACTATE/LACTIC ACIDon 2021 Lactate [Moles/Vol] 1.3 mmol/L Normal 0.4-1.9 [facility] Comment on above: Performed By: #### L ACT #### [facility] [address] [place] [address] Dr. Mirian Velasco LIPASEon 10-20-2022 Lipase [Catalytic activity/Vol] 49.0 U/L Critically low 73.0-393.0 [facility] Comment on above: Performed By: #### P T #### [facility] [address] [place] [address] Dr. Mirian Velasco PROF 14(COMP METB)on 022 Albumin [Mass/Vol] 3.2 g/dL Critically low 3.4-5.0 [facility] Comment on above: Performed By: #### P T #### [facility] [address] [place] [address] Dr. Mirian Velasco Albumin/Globulin [Mass ratio] 0.9 {ratio} Normal [facility] Comment on above: Performed By: #### P T #### [facility] [address] [place] [address] Dr. Mirian Velasco ALP [Catalytic activity/Vol] 129 U/L Critically high 46-116 [facility] Comment on above: Performed By: #### P T #### [facility] [address] [address] [address] Mirian Velasco ALT [Catalytic activity/Vol] 25 U/L Normal 14-59 [facility] Comment on above: Performed By: #### P T #### [facility] [address] [address] [address] Mirian Velasco Anion gap [Moles/Vol] 10.7 mmol/L Normal [facility] Comment on above: Performed By: #### P T #### [facility] [address] [address] [address] Mirian Velasco AST [Catalytic activity/Vol] 20 U/L Normal 15-37 [facility] Comment on above: Performed By: #### P T #### [facility] [address] [address] [address] Mirian Velasco Bilirubin [Mass/Vol] 0.5 mg/dL Normal 0.2-1.0 [facility] Comment on above: Performed By: #### P T #### [facility] [address] [address] [address] Mirian Velasco Calcium [Mass/Vol] 9.2 mg/dL Normal 8.5-10.1 [facility] Comment on above: Performed By: #### P T #### [facility] [address] [address] [address] Mirian Velasco Chloride [Moles/Vol] 102 mmol/L Normal 98-107 [facility] Comment on above: Performed By: #### P T #### [facility] [address] [address] [address] Mirian Velasco CO2 [Moles/Vol] 30.0 mmol/L Normal 21.0-32.0 [facility] Comment on above: Performed By: #### P T #### [facility] [address] [address] [address] Mirian Velasco Creatinine [Mass/Vol] 0.68 mg/dL Normal 0.55-1.02 [facility] Comment on above: Performed By: #### P T #### [facility] [address] [address] [address] Mirian Velasco EGFR-AF SAMOAN >60 Normal >=60 [facility] Comment on above: Performed By: #### P T #### [facility] [address] [address] [address] Mirian Velasco EGFR-NON AF SAMOAN >60 Normal >=60 [facility] Comment on above: Performed By: #### P T #### [facility] [address] [address] [address] Mirian Velasco Globulin (S) [Mass/Vol] 3.7 g/dL Normal [facility] Comment on above: Performed By: #### P T #### [facility] [address] [address] [address] Mirian Velasco Glucose [Mass/Vol] 109 mg/dL Critically high 74-106 [facility] Comment on above: Performed By: #### P T #### [facility] [address] [address] [address] Mirian Velasco Potassium [Moles/Vol] 3.7 mmol/L Normal 3.5-5.1 [facility] Comment on above: Performed By: #### P T #### [facility] [address] [place] [address] Dr. Mirian Velasco Protein [Mass/Vol] 6.9 g/dL Normal 6.4-8.2 [facility] Comment on above: Performed By: #### P T #### [facility] [address] [address] [address] Mirian Velasco Sodium [Moles/Vol] 139 mmol/L Normal 136-145 [facility] Comment on above: Performed By: #### P T #### [facility] [address] [place] [address] [address] Mirian Velasco Urea nitrogen [Mass/Vol] 13.0 mg/dL Normal 7.0-18.0 [facility] Comment on above: Performed By: #### P T #### [facility] [address] [address] [address] Mirian Velasco Urea nitrogen/Creatinine [Mass ratio] 19.1 mg/mg Normal [facility] Comment on above: Performed By: #### P T #### [facility] [address] [place] [address] Dr. Mirian Velasco URINE MICROSCOPIC ONLYon BACTERIA TRACE Abnormal NONE SEEN [facility] Comment on above: Performed By: #### P T #### [facility] [address] [place] [address] Dr. Mirian Velasco Bacteria identified Cx Nom (U) INDICATED Normal [facility] Comment on above: Performed By: #### P T #### [facility] [address] [place] [address] Dr. Mirian Velasco CAST NONE SEEN Normal NONE SEEN [facility] Comment on above: Performed By: #### P T #### [facility] [address] [place] [address] Dr. Mirian Velasco Crystals LM Nom (Urine sed) NONE SEEN Normal NONE SEEN [facility] Comment on above: Performed By: #### P T #### [facility] [address] [place] [address] Dr. Mirian Velasco Epithelial cells LM Ql (Urine sed) MODERATE Abnormal NONE SEEN /RARE [facility] Comment on above: Performed By: #### P T #### [facility] [address] [place] [address] Dr. Mirian Velasco MUCOUS NONE SEEN Normal NONE SEEN [facility] Comment on above: Performed By: #### P T #### [facility] [address] [place] [address] Dr. Miiran Velasco RBC NONE SEEN Abnormal 0-2 [facility] Comment on above: Performed By: #### P T #### [facility] [address] [place] [address] Dr. Mirian Velasco WBC 2-5 Abnormal NONE SEEN [facility] Comment on above: Performed By: #### P T #### [facility] [address] [place] [address] Dr. Mirian Velasco YEAST PRESENT Abnormal NONE SEEN [facility] Comment on above: Result Comment: RARE BUDDING YEAST Performed By: #### P T #### [facility] [address] [place], [place] [address] Dr. Mirian Velasco POINT OF CARE GLUCOSEon 10-06 Glucose [Mass/Vol] 131 mg/dL Critically high 74-106 [facility] Comment on above: Performed By: #### P OCGLUC ####[facility] [id number] [place], [place] [address]FgDr. Mirian Velasco Glucose [Mass/Vol] 113 mg/dL Critically high 74-106 [facility] Comment on above: Performed By: #### P OCGLUC ####[facility] [id number] [place], [place] [address]MaDr. Mirian Velasco XR FOOT RT 2Von 10-17-2022 [...] Date: 2022-10-17 18:04 Normal [facility]on SARS-CoV-2 (COVID-19) RNA JOSÉ MIGUEL+probe Ql (Unsp spec) Not detected Normal NOT DETECTED [facility] Comment on above: Result Comment: This test is not yet approved or cleared by the [place] FDA. When there are no FDA-approved or cleared tests available, and other criteria are met, FDA can make tests available under an emergency access mechanism called an Emergency Use Authorization (EUA). The EUA for this test is supported by the [place] of Health and Human Service's (HHS's) declaration [...] SARS-CoV-2. Performed By: #### C VDTB #### [facility] [address] [address] [address] Mirian Velasco Diagnostic Mammogram, Unilat eral [...] VERY IMPORTANT TO YOUR HEALTH. THE CURRENT [place] [employer] GUIDELINES RECOMMENDS ANNUAL MAMMOGRAPHY BEGINNING AT AGE 40 THIS FACILITY USES A REMINDER SYSTEM TO ENSURE ALL PATIENTS RECEIVE REMINDER NOTIFICATIONS AT THE APPROPRIATE TIME BASED ON THE RECOMMENDATIONS OF THIS EXAM. Board Certified Radiologist. Accredited by the ACR and FDA. Report reported and signed by Dawna Lizarraga on 09/28/2022 1307 Normal [facility] CBC AUTO DIFFon 09-26-2022 BASO # 0.1 103/ul Normal 0.0-0.1 [facility] Comment on above: Performed By: #### L ACT #### [facility] [address] [address] [address] Mirian Velasco Basophils/100 WBC (Bld) 0.8 % Normal 0.2-2.0 [facility] Comment on above: Performed By: #### L ACT #### [facility] [address] [address] [address] Mirian Velasco EO # 0.1 103/ul Normal 0.0-0.7 [facility] Comment on above: Performed By: #### L ACT #### [facility] [address] [address] [address] Mirian Velasco Eosinophils/100 WBC (Bld) 1.5 % Normal 0.9-7.0 [facility] Comment on above: Performed By: #### L ACT #### [facility] [address] [place] [address] Dr. Mirian Velasco Erythrocyte distribution width (RBC) [Ratio] 13.4 % Normal 11.0-15.0 [facility] Comment on above: Performed By: #### L ACT #### [facility] [address] [place] [address] Dr. Mirian Velasco Hematocrit (Bld) [Volume fraction] 41.3 % Normal 36.0-48.0 [facility] Comment on above: Performed By: #### L ACT #### [facility] [address] [place] [address] Dr. Mirian Velasco Hemoglobin (Bld) [Mass/Vol] 13.4 g/dL Normal 12.0-16.0 [facility] Comment on above: Performed By: #### L ACT #### [facility] [address] [place] [address] Dr. Mirian Velasco IG # 0.04 10e3/ul Critically high 0.00-0.03 [facility] Comment on above: Performed By: #### L ACT #### [facility] [address] [place] [address] Dr. Mirian Velasco IG % 0.5 % Normal 0.0-0.5 [facility] Comment on above: Performed By: #### L ACT #### [facility] [address] [place] [address] Dr. Mirian Velasco LYMPH # 2.5 103/ul Normal 1.2-3.8 [facility] Comment on above: Performed By: #### L ACT #### [facility] [address] [place] [address] Dr. Mirian Velasco Lymphocytes/100 WBC (Bld) 27.7 % Normal 20.5-60.0 [facility] Comment on above: Performed By: #### L ACT #### [facility] [address] [place] [address] Dr. Mirian Velasco MANUAL DIFF REQ NO Normal [facility] Comment on above: Performed By: #### L ACT #### [facility] [address] [place] [address] Dr. Mirian Velasco MCH (RBC) [Entitic mass] 27.6 pg Normal 26.7-34.0 [facility] Comment on above: Performed By: #### L ACT #### [facility] [address] [place] [address] Dr. Mirian Velasco MCHC (RBC) [Mass/Vol] 32.4 g/dL Normal 29.9-35.2 [facility] Comment on above: Performed By: #### L ACT #### [facility] [address] [place] [address] Dr. Mirian Velasco MCV (RBC) [Entitic vol] 85.0 fL Normal 81.0-99.0 [facility] Comment on above: Performed By: #### L ACT #### [facility] [address] [place] [address] Dr. Mirian Velasco MONO # 0.6 103/ul Normal 0.3-0.8 [facility] Comment on above: Performed By: #### L ACT #### [facility] [address] [place] [address] Dr. Mirian Velasco Monocytes/100 WBC (Bld) 6.9 % Normal 1.7-12.0 [facility] Comment on above: Performed By: #### L ACT #### [facility] [address] [place] [address] Dr. Mirian Velasco NEUT # 5.6 103/ul Normal 1.4-6.5 [facility] Comment on above: Performed By: #### L ACT #### [facility] [address] [place] [address] Dr. Mirian Velasco Neutrophils/100 WBC (Bld) 62.6 % Normal 43.0-75.0 [facility] Comment on above: Performed By: #### L ACT #### [facility] [address] [place] [address] Dr. Mirian Velasco Platelet mean volume (Bld) [Entitic vol] 8.6 fL Critically low 9.5-13.5 [facility] Comment on above: Performed By: #### L ACT #### [facility] [address] [place] [address] Dr. Mirian Velasco PLT 372 103/ul Normal 150-450 [facility] Comment on above: Performed By: #### L ACT #### [facility] [address] [place] [address] Dr. Mirian Velasco RBC 4.86 106/ul Normal 4.20-5.40 [facility] Comment on above: Performed By: #### L ACT #### [facility] [address] [place] [address] Dr. Mirian Velasco WBC 8.9 103/ul Normal 4.0-11.0 [facility] Comment on above: Performed By: #### L ACT #### [facility] [address] [place] [address] Dr. Mirian Velasco PROF CHEM 8 (BAS METB)on Anion gap [Moles/Vol] 8.0 mmol/L Normal [facility] Comment on above: Performed By: #### P T #### [facility] [address] [place] [address] Dr. Mirian Velasco Calcium [Mass/Vol] 9.0 mg/dL Normal 8.5-10.1 [facility] Comment on above: Performed By: #### P T #### [facility] [address] [place] [address] Dr. Mirian Velasco Chloride [Moles/Vol] 106 mmol/L Normal 98-107 [facility] Comment on above: Performed By: #### P T #### [facility] [address] [place] [address] Dr. Mirian Velasco CO2 [Moles/Vol] 30.3 mmol/L Normal 21.0-32.0 [facility] Comment on above: Performed By: #### P T #### [facility] [address] [place] [address] Dr. Mirian Velasco Creatinine [Mass/Vol] 0.71 mg/dL Normal 0.55-1.02 [facility] Comment on above: Performed By: #### P T #### [facility] [address] [address] [address] Mirian Velasco EGFR-AF SAMOAN >60 Normal >=60 [facility] Comment on above: Performed By: #### P T #### [facility] [address] [address] [address] Mirian Velasco EGFR-NON AF SAMOAN >60 Normal >=60 [facility] Comment on above: Performed By: #### P T #### [facility] [address] [address] [address] Mirian Velasco Glucose [Mass/Vol] 81 mg/dL Normal 74-106 [facility] Comment on above: Performed By: #### P T #### [facility] [address] [address] [address] Mirian Velasco Potassium [Moles/Vol] 4.3 mmol/L Normal 3.5-5.1 [facility] Comment on above: Performed By: #### P T #### [facility] [address] [address] [address] Mirian Velasco Sodium [Moles/Vol] 140 mmol/L Normal 136-145 [facility] Comment on above: Performed By: #### P T #### [facility] [address] [address] [address] Mirian Velasco Urea nitrogen [Mass/Vol] 16.0 mg/dL Normal 7.0-18.0 [facility] Comment on above: Performed By: #### P T #### [facility] [address] [address] [address] Mirian Velasco Urea nitrogen/Creatinine [Mass ratio] 22.5 mg/mg Normal [facility] Comment on above: Performed By: #### P T #### [facility] [address] [address] [address] Mirian Velasco C reactive protein [Mass/vol ume] in Serum or PlasmaOrdered By: Beto Snyder on 09-22-2022 CRP [Mass/Vol] 0.6 mg/dL 0.0-1.[address] [facility] C-Reactive Proteinon 022 C-Reactive Protein 0.6 mg/dL Normal 0.0-1.0 mg/dL [facility] Other Erythrocyte Sedimentation Ra lian 09-22-2022 ESR (Bld) [Velocity] 4 mm/h Normal 0-29 [facility] Other Erythrocyte sedimentation ra te by Photometric methodOrdered By: Beto Snyder on 09-22-2022 ESR Photometric method (Bld) [Velocity] 4 mm/hr 0-[address] [facility] Serum nuclear antibody titer Ordered By: Beto Snyder on 09-22-2022 Nuclear Ab (S) [Titer] Negative . [facility] Comment on above: Negative <1:80 Borde rline 1:80 Positive >1:80ICAP nomenclature: AC-0For more information about Hep-2 cell patterns useHONORHEALTH SONORAN CROSSING MEDICAL CENTERpatterns.org, the official website for theInternational Consensus on Antinuclear Antibody (CHUYITA)Patterns (ICAP).Performed at: Whatever - [facility] [address] [id number] Director: Erick Neville PhD, Phone: [phone] Serum or plasma rheumatoid f actor measurement (units/volume)Ordered By: Beto Snyder on 09-22-2022 Rheumatoid factor Qn [IU]/mL <14.0 [facility] Comment on above: Performed at: [facility] - [facility] [address] [id number] Director: Erick Neville PhD, Phone: [phone] Serum or plasma thyroxine (T 4) measurement (mass/volume)Ordered By: Beto Snyder on 09-22-2022 T4 [Mass/Vol] 9.82 ug/dL 5.39-11.[address] [facility] Serum or plasma uric acid me asurement (mass/volume)Ordered By: Beto Snyder on 09-22-2022 Urate [Mass/Vol] 4.2 mg/dL 2.6-7.2 [facility] TSH DL <= 0.005 mIU/L QnOrde red By: Beto Snyder on 09-22-2022 TSH Qn 1.98 m[IU]/L 0.45-5.[address] [facility] Thyroid Stimulating Hormoneo n 09-22-2022 TSH Qn 1.99761939504 m[IU]/L Normal 0.45-5 .33 u[iU]/mL [facility] Other Thyroxine (T4) Totalon 09-22 Thyroxine (T4) Total 9.82 ug/dL Normal 5.39-11 .82 ug/dL [facility] Other Uric Acidon 09-22-2022 Urate [Mass/Vol] 4.3203631 mg/dL Normal 2.6-7.2 mg/dL [facility] Other XR knee BI 2Von 09-22-2022 XR knee BI 2V [facility] [employer] Other XR knee BI 2V [facility] [employer] Other XR knee BI 2V [address] [facility] [employer] Other XR knee BI 2V [address] [employer] Other XR knee BI 2V XRay Report [facility] [facility] Other XR knee BI 2V Signed [facility] Other XR knee BI 2V Patient: ElvisDarrian MR#: [id number] [place] [employer] Other XR knee BI 2V 863 [facility] Other XR knee BI 2V : 1970 Acct:[id number] [facility] Other XR knee BI 2V Age/Sex: 52 / F ADM Date: 09/22/22 [facility] Other XR knee BI 2V Loc: [facility] Room: Type : REG CLI [facility] Other XR knee BI 2V Attending Dr: Beto Snyder MD [facility] Other XR knee BI 2V Copies to: Beto Snyder MD [facility] Other XR knee BI 2V Ordering Provider: Beto Snyder MD [facility] Other XR knee BI 2V Date of Service: 09/22/22 [facility] Other XR knee BI 2V XR/XR knee BI 2V: Knee pain [facility] Other XR knee BI 2V XR knee BI 2V 09/22/2022 9:23 AM [facility] Other XR knee BI 2V SIGNS AND SYMPTOMS: Bilateral knee pain right greater than left [facility] Other XR knee BI 2V PROTOCOL: Frontal an d lateral radiographs of the bilateral knees [facility] Other XR knee BI 2V COMPARISON: None [facility] Other XR knee BI 2V FINDINGS: [facility] Other XR knee BI 2V There is evidence of prior ACL repair in the left knee with mild narrowing of the weightbearing [facility] Other XR knee BI 2V joint spaces on the left. The joint spaces are otherwise preserved. There is no fracture or [facility] Other XR knee BI 2V dislocation. No join t effusion or soft tissue swelling. [facility] Other XR knee BI 2V XR/XR knee BI 2V [facility] Other XR knee BI 2V IMPRESSION: [facility] Other XR knee BI 2V Status post ACL repa ir on the left. [facility] Other XR knee BI 2V Mild degenerative changes are noted in the weightbearing joint spaces of the left. [facility] Other XR knee BI 2V No acute bony injury. [facility] Other XR knee BI 2V Impression dictated by: Rajiv Garcia M.D.09/22/2022 2:17 PM [facility] Other XR knee BI 2V Dictation Location: [place] [address] [facility] Other XR knee BI 2V Transcribed By: MARIO 09/22/22 [facility]7 [facility] Other XR knee BI 2V Dictated By: Rajiv Garcia II, MD 09/22/22 [facility] Other XR knee BI 2V Signed By: [facility] Other XR knee BI 2V 09/22/22 [facility]7 [employer] Other XR shoulder BI min 2Von 09-06 XR shoulder BI min 2V XR/XR shoulder BI min 2V: Shoulder pain [facility] Other XR shoulder BI min 2V XR shoulder BI min 2V 09/22/2022 9:23 AM [facility] Other XR shoulder BI min 2V SIGNS AND SYMPTOMS : Bilateral shoulder pain with limited range of motion [facility] Other XR shoulder BI min 2V PROTOCOL: Frontal, Grashey, scapular Y, and axillary views of the bilateral shoulders [facility] Other XR shoulder BI min 2V COMPARISON: 02/26/2018 [facility] Other XR shoulder BI min 2V There has been bon y resorption of the lateral margin of the clavicle on the right suggesting [facility] Other XR shoulder BI min 2V osteomyelitis is w hich may be degenerative or traumatic. Mild hypertrophy of the AC joint is noted. [facility] Other XR shoulder BI min 2V The glenohumeral j oint is preserved on the right. There is subcortical sclerosis greater tuberosity [facility] Other XR shoulder BI min 2V of the right suggesting underlying rotator cuff abnormalities. This is new when compared to the [facility] Other XR shoulder BI min 2V prior exam. The visualized right hemithorax is grossly intact. [facility] Other XR shoulder BI min 2V There is mild hypertrophy of the left acromioclavicular joint. There is mild subcortical sclerosis [facility] Other XR shoulder BI min 2V of the greater tuberosity in the left suggesting underlying rotator cuff abnormalities. The [facility] Other XR shoulder BI min 2V glenohumeral joint is preserved. There is no fracture or dislocation. Visualized left hemithorax is [facility] Other XR shoulder BI min 2V grossly intact. [facility] Other XR shoulder BI min 2V There is partial visualization of intervertebral disc arthroplasty is noted within the lower [facility] Other XR shoulder BI min 2V cervical spine. 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 CURRENT [employer] [employer] GUIDELINES RECOMMENDS ANNUAL MAMMOGRAPHY BEGINNING AT AGE 42. THIS FACILITY USUALLY USES A REMINDER SYSTEM TO ENSURE ALL POSITIONS RECEIVED REMINDER NOTIFICATIONS AT THE TIME BASED ON THE RECOMMENDATIONS OF THIS EXAM. Report reported and signed by Zaida Diaz on 09/16/2022 1334 Normal [facility] Instructional Facilitator Tobacco Screening.on 022 Adult depression screening assessment No [facility] 250 DO Work Phone: Tobacco use status [facility] b) No [facility] 250 DO Work Phone: COVID Quick Testingon 2021 Result Negative [facility] Other AMYLASEon 04-17-2022 Amylase [Catalytic activity/Vol] 38 U/L Normal 25-115 [facility] Comment on above: Performed By: #### P T #### [facility] [address] [place] [address] Dr. Mirian Velasco CBC AUTO DIFFon 04-17-2022 BASO # 0.1 103/ul Normal 0.0-0.1 [facility] Comment on above: Performed By: #### L ACT #### [facility] [address] [place] [address] Dr. Mirian Velasco Basophils/100 WBC (Bld) 1.0 % Normal 0.2-2.0 [facility] Comment on above: Performed By: #### L ACT #### [facility] [address] [place] [address] Dr. Mirian Velasco EO # 0.2 103/ul Normal 0.0-0.7 [facility] Comment on above: Performed By: #### L ACT #### [facility] [address] [place] [address] Dr. Mirian Velasco Eosinophils/100 WBC (Bld) 3.3 % Normal 0.9-7.0 [facility] Comment on above: Performed By: #### L ACT #### [facility] [address] [place] [address] Dr. Mirian Velasco Erythrocyte distribution width (RBC) [Ratio] 12.0 % Normal 11.0-15.0 [facility] Comment on above: Performed By: #### L ACT #### [facility] [address] [place] [address] Dr. Mirian Velasco Hematocrit (Bld) [Volume fraction] 37.3 % Normal 36.0-48.0 [facility] Comment on above: Performed By: #### L ACT #### [facility] [address] [place] [address] Dr. Mirian Velasco Hemoglobin (Bld) [Mass/Vol] 12.1 g/dL Normal 12.0-16.0 [facility] Comment on above: Performed By: #### L ACT #### [facility] [address] [place] [address] Dr. Mirian Velasco IG # 0.03 10e3/ul Normal 0.00-0.03 [facility] Comment on above: Performed By: #### L ACT #### [facility] [address] [place] [address] Dr. Mirian Velasco IG % 0.4 % Normal 0.0-0.5 [facility] Comment on above: Performed By: #### L ACT #### [facility] [address] [place] [address] Dr. Mirian Velasco LYMPH # 1.8 103/ul Normal 1.2-3.8 [facility] Comment on above: Performed By: #### L ACT #### [facility] [address] [place] [address] Dr. Mirian Velasco Lymphocytes/100 WBC (Bld) 25.2 % Normal 20.5-60.0 [facility] Comment on above: Performed By: #### L ACT #### [facility] [address] [place] [address] Dr. Mirian Velasco MANUAL DIFF REQ NO Normal [facility] Comment on above: Performed By: #### L ACT #### [facility] [address] [place] [address] Dr. Mirian Velasco MCH (RBC) [Entitic mass] 29.0 pg Normal 26.7-34.0 [facility] Comment on above: Performed By: #### L ACT #### [facility] [address] [place] [address] Dr. Mirian Velasco MCHC (RBC) [Mass/Vol] 32.4 g/dL Normal 29.9-35.2 [facility] Comment on above: Performed By: #### L ACT #### [facility] [address] [place] [address] Dr. Mirian Velasco MCV (RBC) [Entitic vol] 89.4 fL Normal 81.0-99.0 [facility] Comment on above: Performed By: #### L ACT #### [facility] [address] [place] [address] Dr. Mirian Velasco MONO # 0.4 103/ul Normal 0.3-0.8 [facility] Comment on above: Performed By: #### L ACT #### [facility] [address] [address] [address] Mirian Velasco Monocytes/100 WBC (Bld) 5.8 % Normal 1.7-12.0 [facility] Comment on above: Performed By: #### L ACT #### [facility] [address] [address] [address] Mirian Velasco NEUT # 4.6 103/ul Normal 1.4-6.5 [facility] Comment on above: Performed By: #### L ACT #### [facility] [address] [address] [address] Mirian Velasco Neutrophils/100 WBC (Bld) 64.3 % Normal 43.0-75.0 [facility] Comment on above: Performed By: #### L ACT #### [facility] [address] [address] [address] Mirian Velasco Platelet mean volume (Bld) [Entitic vol] 8.6 fL Critically low 9.5-13.5 [facility] Comment on above: Performed By: #### L ACT #### [facility] [address] [address] [address] Mirian Velasco PLT 597 103/ul Critically high 150-450 [facility] Comment on above: Performed By: #### L ACT #### [facility] [address] [address] [address] Mirian Velasco RBC 4.17 106/ul Critically low 4.20-5.40 [facility] Comment on above: Performed By: #### L ACT #### [facility] [address] [address] [address] Mirian Velasco WBC 7.2 103/ul Normal 4.0-11.0 [facility] Comment on above: Performed By: #### L ACT #### [facility] [address] ABD/PELVIS WO CONon [...] MAKENNA TRIPLETT Date: 2022-04-17 11:19 Normal [facility] ER URINE PROFILEon 2 Bilirubin Ql (U) Negative Normal NEGATIVE [facility] Comment on above: Performed By: #### P T #### [facility] [address] [place], [place] [address] Dr. Mirian Velasco Clarity (U) CLEAR Normal CLEAR [facility] Comment on above: Performed By: #### P T #### [facility] [address] [place], [place] [address] Dr. Mirian Velasco Color (U) YELLOW Normal YELLOW [facility] Comment on above: Performed By: #### P T #### [facility] [address] [address] [address] Mirian KING A micrscopic examination will be performed if indicated. Normal [facility] Comment on above: Performed By: #### P T #### [facility] [address] [address] [address] Mirian Velasco Glucose Ql (U) Negative Normal NEGATIVE [facility] Comment on above: Performed By: #### P T #### [facility] [address] [address] [address] Mirian Velasco Hemoglobin Ql (U) Negative Normal NEGATIVE [facility] Comment on above: Performed By: #### P T #### [facility] [address] [address] [address] Mirian Velasco Ketones Ql (U) Negative Normal NEGATIVE [facility] Comment on above: Performed By: #### P T #### [facility] [address] [address] [address] Mirian Velasco LEUKOCYTES Negative Normal NEGATIVE [facility] Comment on above: Performed By: #### P T #### [facility] [address] [address] [address] Mirian Velasco Nitrite Ql (U) Negative Normal NEGATIVE [facility] Comment on above: Performed By: #### P T #### [facility] [address] [address] [address] Mirian Velasco pH (U) 5.5 [pH] Normal 5-9 [facility] Comment on above: Performed By: #### P T #### [facility] [address] [address] [address] Mirian Velasco SPEC GRAVITY >=1.030 Abnormal 1.005-<=1.025 [facility] Comment on above: Performed By: #### P T #### [facility] [address] [address] [address] Mirian Velasco UA PROTEIN Negative Normal NEGATIVE/ TRACE [facility] Comment on above: Performed By: #### P T #### [facility] [address] [place] [address] Dr. Mirian Velasco UR MICRO IND NOT INDICATED Normal [facility] Comment on above: Performed By: #### P T #### [facility] [address] [place] [address] Dr. Mirian Velasco Urobilinogen Qn (U) 0.2 {Lyubov'U}/dL Normal 0.2 - 1. 0 [facility] Comment on above: Performed By: #### P T #### [facility] [address] [place] [address] Dr. Mirian Velasco LIPASEon 04-17-2022 Lipase [Catalytic activity/Vol] 117.0 U/L Normal 73.0-393.0 [facility] Comment on above: Performed By: #### P T #### [facility] [address] [place] [address] Dr. Mirian Velasco PROF 14(COMP METB)on 022 Albumin [Mass/Vol] 3.5 g/dL Normal 3.4-5.0 [facility] Comment on above: Performed By: #### P T #### [facility] [address] [place] [address] Dr. Mirian Velasco Albumin/Globulin [Mass ratio] 0.9 {ratio} Normal [facility] Comment on above: Performed By: #### P T #### [facility] [address] [place] [address] Dr. Mirian Velasco ALP [Catalytic activity/Vol] 237 U/L Critically high 46-116 [facility] Comment on above: Performed By: #### P T #### [facility] [address] [place] [address] Dr. Mirian Velasco ALT [Catalytic activity/Vol] 53 U/L Normal 14-59 [facility] Comment on above: Performed By: #### P T #### [facility] [address] [place] [address] Dr. Mirian Velasco Anion gap [Moles/Vol] 11.0 mmol/L Normal [facility] Comment on above: Performed By: #### P T #### [facility] [address] [address] [address] Mirian Velasco AST [Catalytic activity/Vol] 45 U/L Critically high 15-37 [facility] Comment on above: Performed By: #### P T #### [facility] [address] [address] [address] Mirian Velasco Bilirubin [Mass/Vol] 0.2 mg/dL Normal 0.2-1.0 [facility] Comment on above: Performed By: #### P T #### [facility] [address] [address] [address] Mirian Velasco Calcium [Mass/Vol] 9.3 mg/dL Normal 8.5-10.1 [facility] Comment on above: Performed By: #### P T #### [facility] [address] [place] [address] Dr. Mirian Velasco Chloride [Moles/Vol] 105 mmol/L Normal 98-107 [facility] Comment on above: Performed By: #### P T #### [facility] [address] [address] [address] Mirian Velasco CO2 [Moles/Vol] 29.5 mmol/L Normal 21.0-32.0 [facility] Comment on above: Performed By: #### P T #### [facility] [address] [place] [address] Dr. Mirian Velasco Creatinine [Mass/Vol] 0.69 mg/dL Normal 0.55-1.02 [facility] Comment on above: Performed By: #### P T #### [facility] [address] [address] [address] Mirian Velasco EGFR-AF SAMOAN >110 Normal >=60 [facility] Comment on above: Performed By: #### P T #### [facility] [address] [address] [address] Mirian Velasco EGFR-NON AF SAMOAN >90 Normal >=60 [facility] Comment on above: Performed By: #### P T #### [facility] [address] [address] [address] Mirian Velasco Globulin (S) [Mass/Vol] 4.0 g/dL Normal [facility] Comment on above: Performed By: #### P T #### [facility] [address] [address] [address] Mirian [place] Glucose [Mass/Vol] 107 mg/dL Critically high 74-106 [facility] Comment on above: Performed By: #### P T #### [facility] [address] [place] [address] Dr. Mirian Velasco Potassium [Moles/Vol] 4.5 mmol/L Normal 3.5-5.1 [facility] Comment on above: Performed By: #### P T #### [facility] [address] [place] [address] Dr. Mirian Velasco Protein [Mass/Vol] 7.5 g/dL Normal 6.4-8.2 [facility] Comment on above: Performed By: #### P T #### [facility] [address] [place] [address] Dr. Mirian Velasco Sodium [Moles/Vol] 141 mmol/L Normal 136-145 [facility] Comment on above: Performed By: #### P T #### [facility] [address] [place] [address] Dr. Mirian Velasco Urea nitrogen [Mass/Vol] 11.0 mg/dL Normal 7.0-18.0 [facility] Comment on above: Performed By: #### P T #### [facility] [address] [place] [address] Dr. Mirian Velasco Urea nitrogen/Creatinine [Mass ratio] 15.9 mg/mg Normal [facility] Comment on above: Performed By: #### P T #### [facility] [address] [place] [address] Dr. Mirian Velasco XR CHEST 1 Von 04-17-2022 XR CHEST 1 V EXAM: Chest x-ray HISTORY: Pain. COMPARISON: 02/20/2022 TECHNIQUE: AP portable upright view of the chest. FINDINGS: Heart and Vascularity are unremarkable. Lungs are free of focal infiltrates. No effusions are noted. Impression: No acute heart or lung disease identified. Electronically authenticated by: NICKI BUTT Date: 2022-04-17 11:03 Normal [facility] Basic metabolic 2000 panelon 04-05-2022 Anion gap [Moles/Vol] 13 mmol/L Normal 9-18 [facility] Comment on above: Order Comment: Speci men Type: BLOOD SPECIMEN Ordering Facility: [facility] Address: [address] [place] [address] Performed By: #### 5 8410-2 #### [facility] CLIA [id number] [address] [place] [address] [place] Calcium [Mass/Vol] 9.0 mg/dL Normal 8.5-10.2 [facility] Comment on above: Order Comment: Speci men Type: BLOOD SPECIMEN Ordering Facility: [facility] Address: [address] [place] [address] Performed By: #### 5 8410-2 #### [facility] CLIA [id number] [address] [place] [address] [place] Chloride [Moles/Vol] 104 mmol/L Normal 97-105 [facility] Comment on above: Order Comment: Speci men Type: BLOOD SPECIMEN Ordering Facility: [facility] Address: [address] [place] [address] Performed By: #### 5 8410-2 #### [facility] CLIA [id number] [address] [place] [address] [place] CO2 [Moles/Vol] 25 mmol/L Normal 22-30 [facility] Comment on above: Order Comment: Speci men Type: BLOOD SPECIMEN Ordering Facility: [facility] Address: [address] [place] [address] Performed By: #### 5 8410-2 #### [facility] CLIA [id number] [address] [place] [address] [place] Creatinine [Mass/Vol] 0.65 mg/dL Normal 0.58-0.96 [facility] Comment on above: Order Comment: Speci men Type: BLOOD SPECIMEN Ordering Facility: [facility] Address: [address] [place] [address] Performed By: #### 5 8410-2 #### [facility] CLIA [id number] [address] [place] [address] [place] ESTIMATED GLOMERULAR FILTRATION RATE 108 mL/min/1.73m??? Normal >=60 [facility] Comment on above: Order Comment: Leanne terry Type: BLOOD SPECIMEN Ordering Facility: [facility] Address: [address] [place] [address] Result Comment: Mary mated Glomerular Filtration Rate [...] GFR. Performed By: #### 5 8410-2 #### [facility] CLIA [id number] [place] [address] [place] Glucose [Mass/Vol] 109 mg/dL High 74-99 [facility] Comment on above: Order Comment: Leanne terry Type: BLOOD SPECIMEN Ordering Facility: [facility] Address: [address] [place] [address] Result Comment: The [place] Diabetes Association (ADA) provides guidance for cutoff [...] Standards of Medical Care in Diabetes 2016, [place] [employer]. Diabetes Care. 2016.39(Suppl 1). Performed By: #### 5 8410-2 #### [facility] CLIA [id number] [address] [place] [address] [place] Potassium [Moles/Vol] 3.9 mmol/L Normal 3.7-5.1 [facility] Comment on above: Order Comment: Speci men Type: BLOOD SPECIMEN Ordering Facility: [facility] Address: [address] [place] [address] Performed By: #### 5 8410-2 #### [facility] CLIA [id number] [address] [place] [address] [place] Sodium [Moles/Vol] 142 mmol/L Normal 136-144 [facility] Comment on above: Order Comment: Speci men Type: BLOOD SPECIMEN Ordering Facility: [facility] Address: [address] [place] [address] Performed By: #### 5 8410-2 #### [facility] CLIA [id number] [address] [place] [address] [place] Urea nitrogen [Mass/Vol] 7 mg/dL Normal 7-21 [facility] Comment on above: Order Comment: Speci men Type: BLOOD SPECIMEN Ordering Facility: [facility] Address: [address] [place] [address] Performed By: #### 5 8410-2 #### [facility] CLIA [id number] [address] [place] [address] [place] CBC W Auto Differential pane l (Bld)on 04-05-2022 Basophils (Bld) [#/Vol] 0.05 10*3/uL Normal <0.11 [facility] Comment on above: Order Comment: Speci men Type: BLOOD SPECIMENOrdering Facility: [facility] Address: [address] [place] [address] Performed By: #### B MP #### [place] [address] Basophils/100 WBC (Bld) 0.7 % Normal [facility] Comment on above: Order Comment: Speci men Type: BLOOD SPECIMENOrdering Facility: [facility] Address: [address] [place] [address] Performed By: #### B MP #### [place] [address] Differential cell count method Nom (Bld) Auto Normal [facility] Comment on above: Order Comment: Speci men Type: BLOOD SPECIMENOrdering Facility: [facility] Address: [address] [place] [address] Performed By: #### B MP #### [phone] Eosinophils (Bld) [#/Vol] 0.55 10*3/uL High <0.46 [facility] Comment on above: Order Comment: Speci men Type: BLOOD SPECIMENOrdering Facility: [facility] Address: [address] [place] [address] Performed By: #### B MP #### [place] [id number] Eosinophils/100 WBC (Bld) 8.2 % Normal [facility] Comment on above: Order Comment: Speci men Type: BLOOD SPECIMENOrdering Facility: [facility] Address: [address] [place] [address] Performed By: #### B MP #### [place] [address] Erythrocyte distribution width (RBC) [Ratio] 12.8 % Normal 11.5-15.0 [facility] Comment on above: Order Comment: Speci men Type: BLOOD SPECIMENOrdering Facility: [facility] Address: [address] [place] [address] Performed By: #### B MP #### [place] [phone] Hematocrit (Bld) [Volume fraction] 31.1 % Low 36.0-46.0 [facility] Comment on above: Order Comment: Speci men Type: BLOOD SPECIMENOrdering Facility: [facility] Address: [address] [place] [address] Performed By: #### B MP #### [phone] Hemoglobin (Bld) [Mass/Vol] 10.5 g/dL Low 11.5-15.5 [facility] Comment on above: Order Comment: Speci men Type: BLOOD SPECIMENOrdering Facility: [facility] Address: [address] [place] [address] Performed By: #### B MP #### [place] [phone] IMMATURE GRAN % 0.4 % Normal [facility] Comment on above: Order Comment: Speci men Type: BLOOD SPECIMENOrdering Facility: [facility] Address: [address] [place] [address] Performed By: #### B MP #### [phone] IMMATURE GRAN ABS 0.03 k/uL Normal <0.10 [facility] Comment on above: Order Comment: Speci men Type: BLOOD SPECIMENOrdering Facility: [facility] Address: [address] [place] [address] Performed By: #### B MP #### [place] [phone] Lymphocytes (Bld) [#/Vol] 1.47 10*3/uL Normal 1.00-4.00 [facility] Comment on above: Order Comment: Speci men Type: BLOOD SPECIMENOrdering Facility: [facility] Address: [address] [place] [address] Performed By: #### B MP #### [phone] Lymphocytes/100 WBC (Bld) 22.0 % Normal [facility] Comment on above: Order Comment: Speci men Type: BLOOD SPECIMENOrdering Facility: [facility] Address: [address] [place] [address] Performed By: #### B MP #### [place] [phone] MCH (RBC) [Entitic mass] 29.9 pg Normal 26.0-34.0 [facility] Comment on above: Order Comment: Speci men Type: BLOOD SPECIMENOrdering Facility: [facility] Address: [address] [place] [address] Performed By: #### B MP #### [place] [phone] MCHC (RBC) [Mass/Vol] 33.8 g/dL Normal 30.5-36.0 [facility] Comment on above: Order Comment: Speci men Type: BLOOD SPECIMENOrdering Facility: [facility] Address: [address] [place] [address] Performed By: #### B MP #### [phone] MCV (RBC) [Entitic vol] 88.6 fL Normal 80.0-100.0 [facility] Comment on above: Order Comment: Speci men Type: BLOOD SPECIMENOrdering Facility: [facility] Address: [address] [place] [address] Performed By: #### B MP #### [phone] Monocytes (Bld) [#/Vol] 0.50 10*3/uL Normal <0.87 [facility] Comment on above: Order Comment: Speci men Type: BLOOD SPECIMENOrdering Facility: [facility] Address: [address] [place] [address] Performed By: #### B MP #### [place] [phone] Monocytes/100 WBC (Bld) 7.5 % Normal [facility] Comment on above: Order Comment: Speci men Type: BLOOD SPECIMENOrdering Facility: [facility] Address: [address] [place] [address] Performed By: #### B MP #### [phone] Neutrophils (Bld) [#/Vol] 4.08 10*3/uL Normal 1.45-7.50 [facility] Comment on above: Order Comment: Speci men Type: BLOOD SPECIMENOrdering Facility: [facility] Address: [address] [place] [address] Performed By: #### B MP #### [place] [phone] Neutrophils/100 WBC (Bld) 61.2 % Normal [facility] Comment on above: Order Comment: Speci men Type: BLOOD SPECIMENOrdering Facility: [facility] Address: [address] [place] [address] Performed By: #### B MP #### [place] [phone] Nucleated RBC (Bld) [#/Vol] 10*3/uL Normal <0.01 [facility] Comment on above: Order Comment: Speci men Type: BLOOD SPECIMENOrdering Facility: [facility] Address: [address] [place] [address] Performed By: #### B MP #### [phone] Nucleated RBC/100 WBC (Bld) [Ratio] 0.0 /100 WBC Normal [facility] Comment on above: Order Comment: Speci men Type: BLOOD SPECIMENOrdering Facility: [facility] Address: [address] [place] [address] Performed By: #### B MP #### [place] [phone] Platelet mean volume (Bld) [Entitic vol] 8.9 fL Low 9.0-12.7 [facility] Comment on above: Order Comment: Speci men Type: BLOOD SPECIMENOrdering Facility: [facility] Address: [address] [place] [address] Performed By: #### B MP #### [place] [phone] Platelets (Bld) [#/Vol] 455 10*3/uL High 150-400 [facility] Comment on above: Order Comment: Speci men Type: BLOOD SPECIMENOrdering Facility: [facility] Address: [address] [place] [address] Performed By: #### B MP #### [place] [id number] [place] [address] RBC (Bld) [#/Vol] 3.51 10*6/uL Low 3.90-5.20 [facility] Comment on above: Order Comment: Speci men Type: BLOOD SPECIMENOrdering Facility: [facility] Address: [address] [place] [address] Performed By: #### B MP #### [place] [phone] WBC (Bld) [#/Vol] 6.68 10*3/uL Normal 3.70-11.00 [facility] Comment on above: Order Comment: Speci men Type: BLOOD SPECIMENOrdering Facility: [facility] Address: [address] [place] [address] Performed By: #### B MP #### [place] [phone] CNDSon 04-05-2022 CNDS HNO ID: [id number] Author: Jessi Sheets APRN.DOOR INSTALLER Service: Colorectal Author Type: Nurse Practitioner Type: [...] of the summary. CONSULTING TEAMS DURING HOSPITALIZATION: [facility] Treatment Team: Attending Provider: Mary Obrien [...] only. Pain controlled with TAPs and a MEDICAL LAB SCIENTIST. Remained nauseated. POD4 re-advanced to full liquids [...] by mo (more content not included)... Normal [facility] Magnesium SerPl-mCncon 04-05 Magnesium [Mass/Vol] 2.0 mg/dL Normal 1.7-2.3 [facility] Comment on above: Order Comment: Speci men Type: BLOOD SPECIMEN Ordering Facility: [facility] Address: [address] [place], [place] [address] [phone] Performed By: #### 5 8410-2 #### [facility] [id number] NURSING PROGon 04-05-2022 NURSING PROG HNO ID: [id number] Author: Liliana Mayer RN Service: ? 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 This note was completed by: Liliana Mayer [facility] NURSING PROG HNO ID: [id number] Author: Liliana Mayer RN Service: ? Author [...] This note was completed by: Liliana Mayer [facility] NURSING PROG HNO ID: [id number] Author: Tez Gu, RN Service: ? Author Type: Registered Nurse Type: Nursing Progress Note Filed: 04/04/2022 10:58 PM Note Text: Nursing Progress Note Patient Name: Mary Leal Patient Location: [address]/CY2Y-19 __ Daily Note:04/04/22 2140 Pt is alert and oriented x3. Pt mabulating independently. Surgical sites intact. Pt refusing IVF, pt states she drinks enough water. This note was completed by: Tez Gu [facility] NUTRITIONon 04-05-2022 NUTRITION HNO ID: [id number] Author: Merced Morales DTR Service: Nutrition Therapy Author Type: Cane Flume Watchman Type: Nutrition Filed: 04/05/2022 10:42 AM Note Text: NUTRITION THERAPY BENEFITS MANAGER NOTE SERVICE DATE: 04/05/2022 SERVICE TIME: 9:45 [...] April 05, 2022 TIME: 9:54 AM Normal [facility] Phosphate SerPl-mCncon 04-05 Phosphate [Mass/Vol] 4.6 mg/dL Normal 2.7-4.8 [facility] Comment on above: Order Comment: Speci men Type: BLOOD SPECIMEN Ordering Facility: [facility] Address: [address] [place] [address] Performed By: #### 5 8410-2 #### [facility] CLIA [id number] [address] [place] [address] [place] Basic metabolic 2000 panelon 04-04-2022 Anion gap [Moles/Vol] 10 mmol/L Normal 9-18 [facility] Comment on above: Order Comment: Speci men Type: BLOOD SPECIMENOrdering Facility: [facility] Address: [address] [place] [address] Performed By: #### 2 4321-2, , 2776-11 ####[facility]ATORYCLIA [id number] [place] [address] [place] Calcium [Mass/Vol] 8.9 mg/dL Normal 8.5-10.2 [facility] Comment on above: Order Comment: Speci men Type: BLOOD SPECIMENOrdering Facility: [facility] Address: [address] [place] [address] Performed By: #### 2 4321-2, , 2776-11 ####[facility]ATORYCLIA [id number] [place] [address] [place] Chloride [Moles/Vol] 104 mmol/L Normal 97-105 [facility] Comment on above: Order Comment: Speci men Type: BLOOD SPECIMENOrdering Facility: [facility] Address: [address] [place], [place] [address] Performed By: #### 2 4321-2, , 2776-11 ####[facility] [id number] [place] [address] [place] CO2 [Moles/Vol] 26 mmol/L Normal 22-30 [facility] Comment on above: Order Comment: Speci men Type: BLOOD SPECIMENOrdering Facility: [facility] Address: [address] [place] [address] Performed By: #### 2 4321-2, , 2776-11 ####[facility] [id number] [place] [address] [place] Creatinine [Mass/Vol] 0.56 mg/dL Low 0.58-0.96 [facility] Comment on above: Order Comment: Speci men Type: BLOOD SPECIMENOrdering Facility: [facility] Address: [address] [place] [address] Performed By: #### 2 4321-2, , 2776-11 ####[facility]ORYCLIA [id number] [place] [address] [place] ESTIMATED GLOMERULAR FILTRATION RATE 112 mL/min/1.73m??? Normal >=60 [facility] Comment on above: Order Comment: Speci men Type: BLOOD SPECIMENOrdering Facility: [facility] Address: [address] [place] [address] Result Comment: Mary mated Glomerular Filtration Rate [...] #### 2 4321-2, , 2776-11 ####[facility] [id number] [place] [address] [place] Glucose [Mass/Vol] 112 mg/dL High 74-99 [facility] Comment on above: Order Comment: Speci men Type: BLOOD SPECIMENOrdering Facility: [facility] Address: [address] [place], [place] [phone] Result Comment: The [place] Diabetes Association (ADA) provides guidance for cutoff [...] Standards of Medical Care in Diabetes 2016, [place] [employer]. Diabetes Care. 2016.39(Suppl 1). Performed By: #### 2 4321-2, , 2776-11 ####[facility]ORYCLIA [id number] [place] [address] [place] Potassium [Moles/Vol] 3.9 mmol/L Normal 3.7-5.1 [facility] Comment on above: Order Comment: Leanne terry Type: BLOOD SPECIMENOrdering Facility: [facility] Address: [address] [place], [place] [phone] Performed By: #### 2 4321-2, , 2776-11 ####[facility]ORYCLIA [id number] [place] [address] [place] Sodium [Moles/Vol] 140 mmol/L Normal 136-144 [facility] Comment on above: Order Comment: Everettei harrison Type: BLOOD SPECIMENOrdering Facility: [facility] Address: [address] [place], [place] [phone] Performed By: #### 2 4321-2, , 2776-11 ####[facility]ORYCLIA [id number] [place] [address] [place] Urea nitrogen [Mass/Vol] 3 mg/dL Low 7- [facility] Comment on above: Order Comment: Speci men Type: BLOOD SPECIMENOrdering Facility: [facility] Address: [address] [place] [address] Performed By: #### 2 4321-2, 88755-5, 2777-1 ####[facility]ORYCLIA [id number] [place] [address] [place] CBC W Auto Differential pane l (Bld)on 04-04-2022 Basophils (Bld) [#/Vol] 0.03 10*3/uL Normal <0.11 [facility] Comment on above: Order Comment: Speci men Type: BLOOD SPECIMEN Ordering Facility: [facility] Address: [address] [place] [address] Performed By: #### 5 7021-8 #### [facility] CLIA [id number] [address] [place] [address] [place] Basophils/100 WBC (Bld) 0.5 % Normal [facility] Comment on above: Order Comment: Speci men Type: BLOOD SPECIMEN Ordering Facility: [facility] Address: [address] [place] [address] Performed By: #### 5 7021-8 #### [facility] CLIA [id number] [address] [place] [address] [place] Differential cell count method Nom (Bld) Auto Normal [facility] Comment on above: Order Comment: Speci men Type: BLOOD SPECIMEN Ordering Facility: [facility] Address: [address] [place] [address] Performed By: #### 5 7021-8 #### [facility] CLIA [id number] [address] [place] [address] [place] Eosinophils (Bld) [#/Vol] 0.48 10*3/uL High <0.46 [facility] Comment on above: Order Comment: Speci men Type: BLOOD SPECIMEN Ordering Facility: [facility] Address: [address] [place] [address] Performed By: #### 5 7021-8 #### [facility] CLIA [id number] [address] [place] [address] [place] Eosinophils/100 WBC (Bld) 7.7 % Normal [facility] Comment on above: Order Comment: Speci men Type: BLOOD SPECIMEN Ordering Facility: [facility] Address: [address] [place] [address] Performed By: #### 5 7021-8 #### [facility] CLIA [id number] [address] [place] [address] [place] Erythrocyte distribution width (RBC) [Ratio] 12.7 % Normal 11.5-15.0 [facility] Comment on above: Order Comment: Speci men Type: BLOOD SPECIMEN Ordering Facility: [facility] Address: [address] [place] [address] Performed By: #### 5 7021-8 #### [facility] CLIA [id number] [address] [place] [address] [place] Hematocrit (Bld) [Volume fraction] 31.2 % Low 36.0-46.0 [facility] Comment on above: Order Comment: Speci men Type: BLOOD SPECIMEN Ordering Facility: [facility] Address: [address] [place] [address] Performed By: #### 5 7021-8 #### [facility] CLIA [id number] [address] [place] [address] [place] Hemoglobin (Bld) [Mass/Vol] 10.7 g/dL Low 11.5-15.5 [facility] Comment on above: Order Comment: Speci men Type: BLOOD SPECIMEN Ordering Facility: [facility] Address: [address] [place] [address] Performed By: #### 5 7021-8 #### [facility] CLIA [id number] [address] [place] [address] [place] IMMATURE GRAN % 0.5 % Normal [facility] Comment on above: Order Comment: Speci men Type: BLOOD SPECIMEN Ordering Facility: [facility] Address: [address] [place] [address] Performed By: #### 5 7021-8 #### [facility] CLIA [id number] [address] [place] [address] [place] IMMATURE GRAN ABS 0.03 k/uL Normal <0.10 [facility] Comment on above: Order Comment: Speci men Type: BLOOD SPECIMEN Ordering Facility: [facility] Address: [address] [place] [address] Performed By: #### 5 7021-8 #### [facility] CLIA [id number] [address] [place] [address] Lymphocytes (Bld) [#/Vol] 1.13 10*3/uL Normal 1.00-4.00 [facility] Comment on above: Order Comment: Speci men Type: BLOOD SPECIMEN Ordering Facility: [facility] Address: [address] [place] [address] Performed By: #### 5 7021-8 #### [facility] CLIA [id number] [address] [place] [address] Lymphocytes/100 WBC (Bld) 18.2 % Normal [facility] Comment on above: Order Comment: Speci men Type: BLOOD SPECIMEN Ordering Facility: [facility] Address: [address] [place] [address] Performed By: #### 5 7021-8 #### [facility] CLIA [id number] [address] [place] [address] [place] MCH (RBC) [Entitic mass] 29.9 pg Normal 26.0-34.0 [facility] Comment on above: Order Comment: Speci men Type: BLOOD SPECIMEN Ordering Facility: [facility] Address: [address] [place] [address] Performed By: #### 5 7021-8 #### [facility] CLIA [id number] [address] [place] [address] MCHC (RBC) [Mass/Vol] 34.3 g/dL Normal 30.5-36.0 [facility] Comment on above: Order Comment: Speci men Type: BLOOD SPECIMEN Ordering Facility: [facility] Address: [address] [place] [address] Performed By: #### 5 7021-8 #### [facility] CLIA [id number] [address] [place] [address] [place] MCV (RBC) [Entitic vol] 87.2 fL Normal 80.0-100.0 [facility] Comment on above: Order Comment: Speci men Type: BLOOD SPECIMEN Ordering Facility: [facility] Address: [address] [place] [address] Performed By: #### 5 7021-8 #### [facility] CLIA [id number] [address] [place] [address] [place] Monocytes (Bld) [#/Vol] 0.36 10*3/uL Normal <0.87 [facility] Comment on above: Order Comment: Speci men Type: BLOOD SPECIMEN Ordering Facility: [facility] Address: [address] [place] [address] Performed By: #### 5 7021-8 #### [facility] CLIA [id number] [address] [place] [address] [place] Monocytes/100 WBC (Bld) 5.8 % Normal [facility] Comment on above: Order Comment: Speci men Type: BLOOD SPECIMEN Ordering Facility: [facility] Address: [address] [place] [address] Performed By: #### 5 7021-8 #### [facility] CLIA [id number] [address] [place] [address] [place] Neutrophils (Bld) [#/Vol] 4.18 10*3/uL Normal 1.45-7.50 [facility] Comment on above: Order Comment: Speci men Type: BLOOD SPECIMEN Ordering Facility: [facility] Address: [address] [place] [address] Performed By: #### 5 7021-8 #### [facility] CLIA [id number] [address] [place] [address] [place] Neutrophils/100 WBC (Bld) 67.3 % Normal [facility] Comment on above: Order Comment: Speci men Type: BLOOD SPECIMEN Ordering Facility: [facility] Address: [address] [place] [address] Performed By: #### 5 7021-8 #### [facility] CLIA [id number] [address] [place] [address] [place] Nucleated RBC (Bld) [#/Vol] 10*3/uL Normal <0.01 [facility] Comment on above: Order Comment: Speci men Type: BLOOD SPECIMEN Ordering Facility: [facility] Address: [address] [place] [address] Performed By: #### 5 7021-8 #### [facility] CLIA [id number] [address] [place] [address] [place] Nucleated RBC/100 WBC (Bld) [Ratio] 0.0 /100 WBC Normal [facility] Comment on above: Order Comment: Speci men Type: BLOOD SPECIMEN Ordering Facility: [facility] Address: [address] [place] [address] Performed By: #### 5 7021-8 #### [facility] CLIA [id number] [address] [place] [address] [place] Platelet mean volume (Bld) [Entitic vol] 8.7 fL Low 9.0-12.7 [facility] Comment on above: Order Comment: Speci men Type: BLOOD SPECIMEN Ordering Facility: [facility] Address: [address] [place] [address] Performed By: #### 5 7021-8 #### [facility] CLIA [id number] [address] [place] [address] [place] Platelets (Bld) [#/Vol] 436 10*3/uL High 150-400 [facility] Comment on above: Order Comment: Speci men Type: BLOOD SPECIMEN Ordering Facility: [facility] Address: [address] [place] [address] Performed By: #### 5 7021-8 #### [facility] CLIA [id number] [address] [place] [address] [place] RBC (Bld) [#/Vol] 3.58 10*6/uL Low 3.90-5.20 [facility] Comment on above: Order Comment: Speci men Type: BLOOD SPECIMEN Ordering Facility: [facility] Address: [address] [place] [address] Performed By: #### 5 7021-8 #### [facility] CLIA [id number] [address] [place] [id number] [place] WBC (Bld) [#/Vol] 6.21 10*3/uL Normal 3.70-11.00 [facility] Comment on above: Order Comment: Speci men Type: BLOOD SPECIMEN Ordering Facility: [facility] Address: [address] [place] [address] Performed By: #### 5 7021-8 #### [facility] [place] [id number] [address] [place] [address] [place] Magnesium SerPl-mCncon 04-04 Magnesium [Mass/Vol] 2.1 mg/dL Normal 1.7-2.3 [facility] Comment on above: Order Comment: Speci men Type: BLOOD SPECIMENOrdering Facility: [facility] Address: [address] [place] [address] Performed By: #### 2 4321-2, 55407-9, 2777-1 ####[facility] [id number] [place] [address] [place] NURSING PROGon 04-04-2022 NURSING PROG HNO ID: [id number] Author: Dipti Crowley RN Service: Nursing Author Type: Registered Nurse Type: Nursing Progress Note Filed: 04/04/2022 7:47 PM Note Text: Nursing Progress Note Patient Name: Mary Leal Patient Location: __ Daily Note:Patient refusing further IVF. This note was completed by: [facility] NURSING PROG HNO ID: [id number] Author: Dipti Crolwey, MAKI Service: Nursing Author Type: Registered Nurse Type: Nursing Progress Note Filed: 04/04/2022 11:11 AM Note Text: Nursing Progress Note Patient Name: Mary Leal Patient Location: [address]/[id number] __ Daily Note: Patient up in chair and up ambulating in hallway with steady gait. VSS. RA POx. IVF as ordered. 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 Dressing to old ostomy site CDI. Abdomen soft and tender. Patient states, feeling much better . Diet advanced, yet patient did not take in 25% of tray. Patient informed RN that I am leaving today. Do what you gotta do. I can do all of this at home . Dr Lamas paged and notified, but post call. 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 Will continue to monitor. Call light in reach. This note was completed by: [facility] Phosphate SerPl-mCncon 04-04 Phosphate [Mass/Vol] 3.2 mg/dL Normal 2.7-4.8 [facility] Comment on above: Order Comment: Speci men Type: BLOOD SPECIMENOrdering Facility: [facility] Address: [address] [place], [place] [id number] Performed By: #### 2 4321-2, 14205-1, 2777-1 ####[facility] [id number] [address] OF [facility] ALLIED HEALTHon 04-03-2022 ALLIED HEALTH HNO ID: [id number] Author: Carmen Daley, [place] Service: ? Author Type: Copy Manager Type: Allied Health Filed: 04/03/2022 5:35 PM [...] MALAIKA April 03, 2022 5:35 PM Normal [facility] Basic metabolic 2000 panelon 04-03-2022 Anion gap [Moles/Vol] 10 mmol/L Normal 9-18 [facility] Comment on above: Order Comment: Speci men Type: BLOOD SPECIMENOrdering Facility: [facility] Address: [address] [place] [address] Performed By: #### B MP #### [place] [phone] Calcium [Mass/Vol] 8.4 mg/dL Low 8.5-10.2 [facility] Comment on above: Order Comment: Speci men Type: BLOOD SPECIMENOrdering Facility: [facility] Address: [address] [place] [address] Performed By: #### B MP #### [place] [phone] Chloride [Moles/Vol] 103 mmol/L Normal 97-105 [facility] Comment on above: Order Comment: Speci men Type: BLOOD SPECIMENOrdering Facility: [facility] Address: [address] [place] [address] Performed By: #### B MP #### [place] [phone] CO2 [Moles/Vol] 25 mmol/L Normal 22-30 [facility] Comment on above: Order Comment: Speci men Type: BLOOD SPECIMENOrdering Facility: [facility] Address: [address] [place] [address] Performed By: #### B MP #### [place] [phone] Creatinine [Mass/Vol] 0.60 mg/dL Normal 0.58-0.96 [facility] Comment on above: Order Comment: Speci men Type: BLOOD SPECIMENOrdering Facility: [facility] Address: [address] [place], [place] [address] Performed By: #### B MP #### [place] [phone] ESTIMATED GLOMERULAR FILTRATION RATE 110 mL/min/1.73m??? Normal >=60 [facility] Comment on above: Order Comment: Speci men Type: BLOOD SPECIMENOrdering Facility: [facility] Address: [address] [place] [address] Result Comment: Mary mated Glomerular Filtration Rate [...] GFR. Performed By: #### B MP #### [place] [phone] Glucose [Mass/Vol] 106 mg/dL High 74-99 [facility] Comment on above: Order Comment: Speci men Type: BLOOD SPECIMENOrdering Facility: [facility] Address: [address] [place] [address] Result Comment: The [place] Diabetes [employer] (ADA) provides guidance for cutoff [...] Standards of Medical Care in Diabetes 2016, [place] [employer]. Diabetes Care. 2016.39(Suppl 1). Performed By: #### B MP #### [place] [phone] Potassium [Moles/Vol] 3.3 mmol/L Low 3.7-5.1 [facility] Comment on above: Order Comment: Speci men Type: BLOOD SPECIMENOrdering Facility: [facility] Address: [address] [place] [address] Performed By: #### B MP #### [place] [phone] Sodium [Moles/Vol] 138 mmol/L Normal 136-144 [facility] Comment on above: Order Comment: Speci men Type: BLOOD SPECIMENOrdering Facility: [facility] Address: [address] [place] [address] Performed By: #### B MP #### [place] [phone] Urea nitrogen [Mass/Vol] 4 mg/dL Low 7-21 [facility] Comment on above: Order Comment: Everettei men Type: BLOOD SPECIMENOrdering Facility: [facility] Address: [address] [place] [address] Performed By: #### B MP #### [phone] CBC W Auto Differential pane l (Bld)on 04-03-2022 Basophils (Bld) [#/Vol] 0.03 10*3/uL Normal <0.11 [facility] Comment on above: Order Comment: Speci men Type: BLOOD SPECIMENOrdering Facility: [facility] Address: [address] [place] [address] Performed By: #### B MP #### [place] [address] Basophils/100 WBC (Bld) 0.4 % Normal [facility] Comment on above: Order Comment: Speci men Type: BLOOD SPECIMENOrdering Facility: [facility] Address: [address] [place] [address] Performed By: #### B MP #### [place] [phone] Differential cell count method Nom (Bld) Auto Normal [facility] Comment on above: Order Comment: Speci men Type: BLOOD SPECIMENOrdering Facility: [facility] Address: [address] [place] [address] Performed By: #### B MP #### [place] [id number] Eosinophils (Bld) [#/Vol] 0.48 10*3/uL High <0.46 [facility] Comment on above: Order Comment: Speci men Type: BLOOD SPECIMENOrdering Facility: [facility] Address: [address] [place] [address] Performed By: #### B MP #### [address] Eosinophils/100 WBC (Bld) 6.5 % Normal [facility] Comment on above: Order Comment: Speci men Type: BLOOD SPECIMENOrdering Facility: [facility] Address: [address] [place] [address] Performed By: #### B MP #### [address] Erythrocyte distribution width (RBC) [Ratio] 12.5 % Normal 11.5-15.0 [facility] Comment on above: Order Comment: Speci men Type: BLOOD SPECIMENOrdering Facility: [facility] Address: [address] [place] [address] Performed By: #### B MP #### [place] [phone] Hematocrit (Bld) [Volume fraction] 29.5 % Low 36.0-46.0 [facility] Comment on above: Order Comment: Speci men Type: BLOOD SPECIMENOrdering Facility: [facility] Address: [address] [place] [address] Performed By: #### B MP #### [place] [phone] Hemoglobin (Bld) [Mass/Vol] 10.2 g/dL Low 11.5-15.5 [facility] Comment on above: Order Comment: Speci men Type: BLOOD SPECIMENOrdering Facility: [facility] Address: [address] [place] [address] Performed By: #### B MP #### [place] [phone] IMMATURE GRAN % 0.5 % Normal [facility] Comment on above: Order Comment: Speci men Type: BLOOD SPECIMENOrdering Facility: [facility] Address: [address] [place] [address] Performed By: #### B MP #### [phone] IMMATURE GRAN ABS 0.04 k/uL Normal <0.10 [facility] Comment on above: Order Comment: Speci men Type: BLOOD SPECIMENOrdering Facility: [facility] Address: [address] [place] [address] Performed By: #### B MP #### [place] [phone] Lymphocytes (Bld) [#/Vol] 1.11 10*3/uL Normal 1.00-4.00 [facility] Comment on above: Order Comment: Speci men Type: BLOOD SPECIMENOrdering Facility: [facility] Address: [address] [place] [address] Performed By: #### B MP #### [phone] Lymphocytes/100 WBC (Bld) 15.0 % Normal [facility] Comment on above: Order Comment: Speci men Type: BLOOD SPECIMENOrdering Facility: [facility] Address: [address] [place] [address] Performed By: #### B MP #### [phone] MCH (RBC) [Entitic mass] 30.1 pg Normal 26.0-34.0 [facility] Comment on above: Order Comment: Speci men Type: BLOOD SPECIMENOrdering Facility: [facility] Address: [address] [place] [address] Performed By: #### B MP #### [place] [phone] MCHC (RBC) [Mass/Vol] 34.6 g/dL Normal 30.5-36.0 [facility] Comment on above: Order Comment: Speci men Type: BLOOD SPECIMENOrdering Facility: [facility] Address: [address] [place] [address] Performed By: #### B MP #### [place] [phone] MCV (RBC) [Entitic vol] 87.0 fL Normal 80.0-100.0 [facility] Comment on above: Order Comment: Speci men Type: BLOOD SPECIMENOrdering Facility: [facility] Address: [address] [place] [address] Performed By: #### B MP #### [place] [phone] Monocytes (Bld) [#/Vol] 0.46 10*3/uL Normal <0.87 [facility] Comment on above: Order Comment: Speci men Type: BLOOD SPECIMENOrdering Facility: [facility] Address: [address] [place] [address] Performed By: #### B MP #### [place] [phone] Monocytes/100 WBC (Bld) 6.2 % Normal [facility] Comment on above: Order Comment: Speci men Type: BLOOD SPECIMENOrdering Facility: [facility] Address: [address] [place] [address] Performed By: #### B MP #### [place] [phone] Neutrophils (Bld) [#/Vol] 5.27 10*3/uL Normal 1.45-7.50 [facility] Comment on above: Order Comment: Speci men Type: BLOOD SPECIMENOrdering Facility: [facility] Address: [address] [place] [address] Performed By: #### B MP #### [place] [phone] Neutrophils/100 WBC (Bld) 71.4 % Normal [facility] Comment on above: Order Comment: Speci men Type: BLOOD SPECIMENOrdering Facility: [facility] Address: [address] [place] [address] Performed By: #### B MP #### [place] [phone] Nucleated RBC (Bld) [#/Vol] 10*3/uL Normal <0.01 [facility] Comment on above: Order Comment: Speci men Type: BLOOD SPECIMENOrdering Facility: [facility] Address: [address] [place] [address] Performed By: #### B MP #### [place] [phone] Nucleated RBC/100 WBC (Bld) [Ratio] 0.0 /100 WBC Normal [facility] Comment on above: Order Comment: Speci men Type: BLOOD SPECIMENOrdering Facility: [facility] Address: [address] [place] [address] Performed By: #### B MP #### [phone] Platelet mean volume (Bld) [Entitic vol] 8.6 fL Low 9.0-12.7 [facility] Comment on above: Order Comment: Speci men Type: BLOOD SPECIMENOrdering Facility: [facility] Address: [address] [place] [address] Performed By: #### B MP #### [place] [address] Platelets (Bld) [#/Vol] 342 10*3/uL Normal 150-400 [facility] Comment on above: Order Comment: Speci men Type: BLOOD SPECIMENOrdering Facility: [facility] Address: [address] [place] [address] Performed By: #### B MP #### [place] [address] RBC (Bld) [#/Vol] 3.39 10*6/uL Low 3.90-5.20 [facility] Comment on above: Order Comment: Speci men Type: BLOOD SPECIMENOrdering Facility: [facility] Address: [address] [place] [address] Performed By: #### B MP #### [place] [phone] WBC (Bld) [#/Vol] 7.39 10*3/uL Normal 3.70-11.00 [facility] Comment on above: Order Comment: Speci men Type: BLOOD SPECIMENOrdering Facility: [facility] Address: [address] [place] [address] Performed By: #### B MP #### [place] [address] CONSULT PROGon 04-03-2022 CONSULT PROG HNO ID: [id number] Author: Sarwat Huddleston PA-C Service: Pain Management Author Type: Physician It Training Specialist Type: Consult Progress Note Filed: 04/03/2022 [...] level is 7/10. TAPS Ropi 0.1% at 02?each 04/01/22 At this time she report most [...] appears comf (more content not included)... Normal [facility] CT ABD/PEL W IVCONon 022 CT [...] Lower thorax: Visualized lung bases are clear. [employer] (topogram) images: No additional findings. IMPRESSION: Postsurgical [...] collection is present in the lower pelvis Flamer After Lasting: CAPRI Transcribe Date/Time: Apr 03 2022 9:00P Dictated by : SHELBY ESPINOSA MD This examination was interpreted and the report reviewed and electronically signed by: SHELBY ESPINOSA MD on Apr 03 2022 9:12PM EST [id number] [facility] Magnesium SerPl-mCncon 04-03 Magnesium [Mass/Vol] 1.6 mg/dL Low 1.7-2.3 [facility] Comment on above: Order Comment: Speci men Type: BLOOD SPECIMENOrdering Facility: [facility] Address: [address] [place] [address] Performed By: #### B MP #### [place] [address] NURSING PROGon 04-03-2022 NURSING PROG HNO ID: [id number] Author: Beto Ford RN Service: ? Author Type: Registered Nurse Type: Nursing Progress Note Filed: 04/03/2022 9:39 PM Note Text: Nursing Progress Note Patient Name: Mary Leal Patient Location: [facility]/LT8E-58 __ Daily Note: 2129: Pt declined to have all oral medications. They just go right through me. I cannot take them. . Made RN aware. This note was completed by: Beto Ford [facility] NURSING PROG HNO ID: [id number] Author: Dipti Crowley RN Service: Nursing Author Type: Registered Nurse Type: Nursing Progress Note Filed: 04/03/2022 2:51 PM Note Text: Nursing Progress Note Patient Name: Mary Leal Patient Location: [facility]/CU0T-40 __ Daily Note:Patient unable to tolerate powder form of potassium due to nausea. Patient unable to tolerate IV form, it feels like It's paralyzing my arm . Attempted to dilute boluses and lower rates with no success. SR paged with events ([phone]). Awaiting further orders. This note was completed by: Dipti Crowley [facility] NURSING PROG HNO ID: [id number] Author: Dipti Crowley RN Service: Nursing Author Type: Registered Nurse Type: Nursing Progress Note Filed: 04/03/2022 11:33 AM Note Text: Nursing Progress Note Patient Name: Mary Leal Patient Location: [place] [address]/[address] __ Daily Note: Patient Up independently in room and in hallway. IVF infusing as ordered. B/L Tap Blocks discontinued and removed by PA. Old ostomy dressing changed. Scant amount of drainage on dressing. Fresh ABD with tape applied. 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 BS Hypoactive. No flatus per [...] monitor. This note was completed by: Dipti [facility] NURSING PROG HNO ID: [id number] Author: Chava Remy RN Service: PICC Team [...] 03, 2022 TIME: 8:37 AM PAGER/CONTACT #: [facility] NURSING PROG HNO ID: [id number] Author: Kev Leone RN Service: ? Author Type: Registered Nurse Type: Nursing Progress Note Filed: 04/03/2022 3:50 AM Note Text: Nursing Progress Note Patient Name: Mary Leal Patient Location: [place] [address]/[address]-22 __ Daily Note: 2100: Pt refusing all PO meds at this time, states she's concerned that she's not digesting them properly. Paan currently being controlled with bilateral blocks and PRN IV pain medication. This note was completed by: Kev Leone [facility] Phosphate SerPl-mCncon 04-03 Phosphate [Mass/Vol] 3.3 mg/dL Normal 2.7-4.8 [facility] Comment on above: Order Comment: Speci men Type: BLOOD SPECIMENOrdering Facility: [facility] Address: [address] [place] [id number] Performed By: #### B #### [place] [address] [facility] 04-02-2022 ALLIED HEALTH HNO ID: [id number] Author: RT Ban(R) Service: Radiology Author Type: [...] Ban(R) April 02, 2022 9:12 AM Normal [facility] CONSULT PROGon 04-02-2022 CONSULT PROG HNO ID: [id number] Author: Sarwat Huddleston PA-C Service: Pain Management Author Type: Physician It Training Specialist Type: Consult Progress Note Filed: 04/02/2022 [...] 29.3 5 (more content not included)... Normal [facility] NURSING PROGon 04-02-2022 NURSING PROG HNO ID: [id number] Author: Dipti Crowley, RN Service: Nursing Author Type: Registered Nurse Type: Nursing Progress Note Filed: 04/02/2022 1:23 PM Note Text: Nursing Progress Note Patient Name: Mary Leal Patient Location: [facility]/ __ Daily Note: Patient AANDOx3. VSS. RA [...] This note was completed by: Dipti Crowley [facility] XR ABDOMEN 1V SUPINEon 04-02 XR [...] may be of help for further evaluation. Flamer After Lasting: CAPRI Transcribe Date/Time: Apr 02 2022 9:16A Dictated by : JOAQUIN BRYANT MD This examination was interpreted and the report reviewed and electronically signed by: JOAQUIN BRYANT MD on Apr 02 2022 9:19AM EST [id number] Normal [facility] Basic metabolic 2000 panelon 04-01-2022 Anion gap [Moles/Vol] 9 mmol/L Normal 9-18 [facility] Comment on above: Order Comment: Speci men Type: BLOOD SPECIMENOrdering Facility: [facility] Address: [address] [place] [address] Performed By: #### B MP #### [place] [phone] Calcium [Mass/Vol] 7.9 mg/dL Low 8.5-10.2 [facility] Comment on above: Order Comment: Speci men Type: BLOOD SPECIMENOrdering Facility: [facility] Address: [address] [place] [address] Performed By: #### B MP #### [phone] Chloride [Moles/Vol] 106 mmol/L High 97-105 [facility] Comment on above: Order Comment: Speci men Type: BLOOD SPECIMENOrdering Facility: [facility] Address: [address] [place] [address] Performed By: #### B MP #### [id number] CO2 [Moles/Vol] 26 mmol/L Normal 22-30 [facility] Comment on above: Order Comment: Speci men Type: BLOOD SPECIMENOrdering Facility: [facility] Address: [address] [place] [address] Performed By: #### B MP #### [place] [phone] Creatinine [Mass/Vol] 0.68 mg/dL Normal 0.58-0.96 [facility] Comment on above: Order Comment: Speci men Type: BLOOD SPECIMENOrdering Facility: [facility] Address: [address] [place], [place] [address] Performed By: #### B MP #### [address] [id number] [place] [address] ESTIMATED GLOMERULAR FILTRATION RATE 107 mL/min/1.73m??? Normal >=60 [facility] Comment on above: Order Comment: Leanne terry Type: BLOOD SPECIMENOrdering Facility: [facility] Address: [address] Result Comment: Mary mated Glomerular Filtration [...] GFR. Performed By: #### B MP #### [address] [id number] [place] [address] Glucose [Mass/Vol] 99 mg/dL Normal 74-99 [facility] Comment on above: Order Comment: Leanne terry Type: BLOOD SPECIMENOrdering Facility: [facility] Address: [address] [place] [address] Result Comment: The [place] [employer] (ADA) provides guidance for cutoff [...] Standards of Medical Care in Diabetes 2016, [place] [employer]. Diabetes Care. 2016.39(Suppl 1). Performed By: #### B MP #### [facility] [address] [place] [address] Potassium [Moles/Vol] 3.7 mmol/L Normal 3.7-5.1 [facility] Comment on above: Order Comment: Speci men Type: BLOOD SPECIMENOrdering Facility: [facility] Address: [address] [place] [address] Performed By: #### B MP #### [place] [phone] Sodium [Moles/Vol] 141 mmol/L Normal 136-144 [facility] Comment on above: Order Comment: Speci men Type: BLOOD SPECIMENOrdering Facility: [facility] Address: [address] [place] [address] Performed By: #### B MP #### [place] [phone] Urea nitrogen [Mass/Vol] 4 mg/dL Low 7-21 [facility] Comment on above: Order Comment: Speci men Type: BLOOD SPECIMENOrdering Facility: [facility] Address: [address] [place] [address] Performed By: #### B MP #### [place] [phone] CBC panel Auto (Bld)on 04-01 Erythrocyte distribution width (RBC) [Ratio] 12.4 % Normal 11.5-15.0 [facility] Comment on above: Order Comment: Speci men Type: BLOOD SPECIMEN [facility]: [facility] Address: [address] [place] [address] Performed By: #### 5 8410-2 #### [facility] CLIA [id number] [address] [place] [address] [place] Hematocrit (Bld) [Volume fraction] 29.3 % Low 36.0-46.0 [facility] Comment on above: Order Comment: Speci men Type: BLOOD SPECIMEN [facility]: [facility] Address: [address] [place] [address] Performed By: #### 5 8410-2 #### [facility] CLIA [id number] [address] [place] [address] [place] Hemoglobin (Bld) [Mass/Vol] 9.6 g/dL Low 11.5-15.5 [facility] Comment on above: Order Comment: Speci men Type: BLOOD SPECIMEN [facility]: [facility] Address: [address] [place] [address] Performed By: #### 5 8410-2 #### [facility] CLIA [id number] [address] [place] [address] MCH (RBC) [Entitic mass] 29.4 pg Normal 26.0-34.0 [facility] Comment on above: Order Comment: Speci men Type: BLOOD SPECIMEN [facility]: [facility] Address: [address] [place] [address] Performed By: #### 5 8410-2 #### [facility] CLIA [id number] [address] [place] [address] [place] MCHC (RBC) [Mass/Vol] 32.8 g/dL Normal 30.5-36.0 [facility] Comment on above: Order Comment: Speci men Type: BLOOD SPECIMEN [facility]: [facility] Address: [address] [place] [address] Performed By: #### 5 8410-2 #### [facility] CLIA [id number] [address] [place] [address] [place] MCV (RBC) [Entitic vol] 89.9 fL Normal 80.0-100.0 [facility] Comment on above: Order Comment: Speci men Type: BLOOD SPECIMEN [facility]: [facility] Address: [address] [place] [address] Performed By: #### 5 8410-2 #### [facility] CLIA [id number] [address] [place] [address] [place] Nucleated RBC (Bld) [#/Vol] 10*3/uL Normal <0.01 [facility] Comment on above: Order Comment: Speci men Type: BLOOD SPECIMEN [facility]: [facility] Address: [address] [place] [address] Performed By: #### 5 8410-2 #### [facility] CLIA [id number] [address] [place] [address] [place] Platelet mean volume (Bld) [Entitic vol] 8.9 fL Low 9.0-12.7 [facility] Comment on above: Order Comment: Speci men Type: BLOOD SPECIMEN [facility]: [facility] Address: [address] [place] [address] Performed By: #### 5 8410-2 #### [facility] CLIA [id number] [address] [place] [address] [place] Platelets (Bld) [#/Vol] 282 10*3/uL Normal 150-400 [facility] Comment on above: Order Comment: Speci men Type: BLOOD SPECIMEN [facility]: [facility] Address: [address] [place] [address] Performed By: #### 5 8410-2 #### [facility] CLIA [id number] [address] [place] [address] [place] RBC (Bld) [#/Vol] 3.26 10*6/uL Low 3.90-5.20 [facility] Comment on above: Order Comment: Speci men Type: BLOOD SPECIMEN [facility]: [facility] Address: [address] [place] [address] Performed By: #### 5 8410-2 #### [facility] CLIA [id number] [address] [place] [address] [place] WBC (Bld) [#/Vol] 7.39 10*3/uL Normal 3.70-11.00 [facility] Comment on above: Order Comment: Speci men Type: BLOOD SPECIMEN [facility]: [facility] Address: [address] [place] [address] Performed By: #### 5 8410-2 #### [facility] CLIA [id number] [address] [place] [address] [place] CONSULT PROGon 04-01-2022 CONSULT PROG HNO ID: [id number] Author: Joslyn Jain APRN.DOOR INSTALLER Service: Pain Management Author Type: Nurse Practitioner [...] 0.67 Sod (more content not included)... Normal [facility] Magnesium SerPl-mCncon 04-01 Magnesium [Mass/Vol] 1.7 mg/dL Normal 1.7-2.3 [facility] Comment on above: Order Comment: Speci men Type: BLOOD SPECIMENOrdering Facility: [facility] Address: [address] [place], [place] [address] Performed By: #### B #### [place] [address] NURSING PROGon 04-01-2022 NURSING PROG HNO ID: [id number] Author: Tez Gu RN Service: ? Author [...] Dilaudid This note was completed by: [facility] NURSING PROG HNO ID: [id number] Author: Tez Gu, RN Service: ? Author Type: Registered Nurse Type: Nursing Progress Note Filed: 04/01/2022 1:52 AM Note Text: Nursing Progress Note Patient Name: Mary Leal Patient Location: [address] __ Daily Note:03/31/222030 Pt is alert and oriented x3. Surgical sites intact. Nerve blocks x2 intact. This note was completed by: [facility] Phosphate SerPl-mCncon 04-01 Phosphate [Mass/Vol] 2.8 mg/dL Normal 2.7-4.8 [facility] Comment on above: Order Comment: Speci men Type: BLOOD SPECIMENOrdering Facility: [facility] Address: [address] [place] [address] Performed By: #### B MP #### [place] [address] Basic metabolic 2000 panelon 03-31-2022 Anion gap [Moles/Vol] 10 mmol/L Normal 9-18 [facility] Comment on above: Order Comment: Speci men Type: BLOOD SPECIMEN [facility]: [facility] Address: [address] [place] [address] Performed By: #### 5 8410-2 #### [facility] CLIA [id number] [address] [place] [address] [place] Calcium [Mass/Vol] 8.4 mg/dL Low 8.5-10.2 [facility] Comment on above: Order Comment: Speci men Type: BLOOD SPECIMEN [facility]: [facility] Address: [address] [place] [address] Performed By: #### 5 8410-2 #### [facility] CLIA [id number] [address] [place] [address] [place] Chloride [Moles/Vol] 107 mmol/L High 97-105 [facility] Comment on above: Order Comment: Speci men Type: BLOOD SPECIMEN [facility]: [facility] Address: [address] [place] [address] Performed By: #### 5 8410-2 #### [facility] CLIA [id number] [address] [place] [address] [place] CO2 [Moles/Vol] 23 mmol/L Normal 22-30 [facility] Comment on above: Order Comment: Speci men Type: BLOOD SPECIMEN [facility]: [facility] Address: [address] [place] [address] Performed By: #### 5 8410-2 #### [facility] CLIA [id number] [address] [place] [address] [place] Creatinine [Mass/Vol] 0.67 mg/dL Normal 0.58-0.96 [facility] Comment on above: Order Comment: Speci men Type: BLOOD SPECIMEN [facility]: [facility] Address: [address] [place] [address] Performed By: #### 5 8410-2 #### [facility] CLIA [id number] [address] [place] [address] [place] ESTIMATED GLOMERULAR FILTRATION RATE 107 mL/min/1.73m??? Normal >=60 [facility] Comment on above: Order Comment: Speci men Type: BLOOD SPECIMEN [facility]: [facility] Address: [address] [place] [address] Result Comment: Mary mated Glomerular Filtration Rate [...] GFR. Performed By: #### 5 8410-2 #### [facility] CLIA [id number] [address] [place] [address] [place] Glucose [Mass/Vol] 84 mg/dL Normal 74-99 [facility] Comment on above: Order Comment: Leanne terry Type: BLOOD SPECIMEN [facility] Facility: [facility] Address: [address] [address] Result Comment: The [place] [employer] (ADA) provides guidance for cutoff [...] Standards of Medical Care in Diabetes 2016, [place] [employer]. Diabetes Care. 2016.39(Suppl 1). Performed By: #### 5 8410-2 #### [facility] CLIA [id number] [address] [place] [address] [place] Potassium [Moles/Vol] 3.8 mmol/L Normal 3.7-5.1 [facility] Comment on above: Order Comment: Leanne terry Type: BLOOD SPECIMEN [facility] Facility: [facility] Address: [address] [address] Performed By: #### 5 8410-2 #### [facility] CLIA [id number] [address] [place] [address] [place] Sodium [Moles/Vol] 140 mmol/L Normal 136-144 [facility] Comment on above: Order Comment: Speci men Type: BLOOD SPECIMEN [facility]: [facility] Address: [address] [place] [address] Performed By: #### 5 8410-2 #### [facility] CLIA [id number] [address] [place] [address] [place] Urea nitrogen [Mass/Vol] 11 mg/dL Normal 7-21 [facility] Comment on above: Order Comment: Speci men Type: BLOOD SPECIMEN [facility] Facility: [facility] Address: [address] [place] [address] Performed By: #### 5 8410-2 #### [facility] CLIA [id number] [address] [place] [address] [place] CBC W Auto Differential pane l (Bld)on 03-31-2022 Basophils (Bld) [#/Vol] 0.03 10*3/uL Normal <0.11 [facility] Comment on above: Order Comment: Speci men Type: BLOOD SPECIMEN [facility]: [facility] Address: [address] [place] [address] Performed By: #### 5 7021-8 #### [facility] CLIA [id number] [address] [place] [address] [place] Basophils/100 WBC (Bld) 0.4 % Normal [facility] Comment on above: Order Comment: Speci men Type: BLOOD SPECIMEN [facility]: [facility] Address: [address] [place] [address] Performed By: #### 5 7021-8 #### [facility] CLIA [id number] [address] [place] [address] [place] Differential cell count method Nom (Bld) Auto Normal [facility] Comment on above: Order Comment: Speci men Type: BLOOD SPECIMEN [facility]: [facility] Address: [address] [place] [address] Performed By: #### 5 7021-8 #### [facility] CLIA [id number] [address] [place] [address] [place] Eosinophils (Bld) [#/Vol] 0.38 10*3/uL Normal <0.46 [facility] Comment on above: Order Comment: Speci men Type: BLOOD SPECIMEN [facility] Facility: [facility] Address: [address] [place] [address] Performed By: #### 5 7021-8 #### [facility] CLIA [id number] [address] [place] [address] [place] Eosinophils/100 WBC (Bld) 4.4 % Normal [facility] Comment on above: Order Comment: Speci men Type: BLOOD SPECIMEN [facility] Facility: [facility] Address: [address] [place] [address] Performed By: #### 5 7021-8 #### [facility] CLIA [id number] [address] [place] [address] [place] Erythrocyte distribution width (RBC) [Ratio] 12.6 % Normal 11.5-15.0 [facility] Comment on above: Order Comment: Speci men Type: BLOOD SPECIMEN [facility]: [facility] Address: [address] [place] [address] Performed By: #### 5 7021-8 #### [facility] CLIA [id number] [address] [place] [address] [place] Hematocrit (Bld) [Volume fraction] 30.0 % Low 36.0-46.0 [facility] Comment on above: Order Comment: Speci men Type: BLOOD SPECIMEN [facility]: [facility] Address: [address] [place] [address] Performed By: #### 5 7021-8 #### [facility] CLIA [id number] [address] [place] [address] [place] Hemoglobin (Bld) [Mass/Vol] 9.9 g/dL Low 11.5-15.5 [facility] Comment on above: Order Comment: Speci men Type: BLOOD SPECIMEN [facility]: [facility] Address: [address] [place] [address] Performed By: #### 5 7021-8 #### [facility] CLIA [id number] [address] [place] [address] IMMATURE GRAN % 0.4 % Normal [facility] Comment on above: Order Comment: Speci men Type: BLOOD SPECIMEN [facility]: [facility] Address: [address] [place] [address] Performed By: #### 5 7021-8 #### [facility] CLIA [id number] [address] [place] [address] IMMATURE GRAN ABS 0.03 k/uL Normal <0.10 [facility] Comment on above: Order Comment: Speci men Type: BLOOD SPECIMEN [facility]: [facility] Address: [address] [place] [address] Performed By: #### 5 7021-8 #### [facility] CLIA [id number] [address] [place] [address] Lymphocytes (Bld) [#/Vol] 1.24 10*3/uL Normal 1.00-4.00 [facility] Comment on above: Order Comment: Speci men Type: BLOOD SPECIMEN [facility]: [facility] Address: [address] [place] [address] Performed By: #### 5 7021-8 #### [facility] CLIA [id number] [address] [place] [address] Lymphocytes/100 WBC (Bld) 14.5 % Normal [facility] Comment on above: Order Comment: Speci men Type: BLOOD SPECIMEN [facility]: [facility] Address: [address] [place] [address] Performed By: #### 5 7021-8 #### [facility] CLIA [id number] [address] [place] [address] [place] MCH (RBC) [Entitic mass] 29.6 pg Normal 26.0-34.0 [facility] Comment on above: Order Comment: Speci men Type: BLOOD SPECIMEN [facility] Facility: [facility] Address: [address] [place] [address] Performed By: #### 5 7021-8 #### [facility] CLIA [id number] [address] [place] [address] [place] MCHC (RBC) [Mass/Vol] 33.0 g/dL Normal 30.5-36.0 [facility] Comment on above: Order Comment: Speci men Type: BLOOD SPECIMEN [facility]: [facility] Address: [address] [place] [address] Performed By: #### 5 7021-8 #### [facility] CLIA [id number] [address] [place] [address] [place] MCV (RBC) [Entitic vol] 89.8 fL Normal 80.0-100.0 [facility] Comment on above: Order Comment: Speci men Type: BLOOD SPECIMEN [facility]: [facility] Address: [address] [place] [address] Performed By: #### 5 7021-8 #### [facility] CLIA [id number] [address] [place] [address] [place] Monocytes (Bld) [#/Vol] 0.48 10*3/uL Normal <0.87 [facility] Comment on above: Order Comment: Speci men Type: BLOOD SPECIMEN [facility]: [facility] Address: [address] [place] [address] Performed By: #### 5 7021-8 #### [facility] CLIA [id number] [address] [place] [address] [place] Monocytes/100 WBC (Bld) 5.6 % Normal [facility] Comment on above: Order Comment: Speci men Type: BLOOD SPECIMEN [facility] Facility: [facility] Address: [address] [place] [address] Performed By: #### 5 7021-8 #### [facility] CLIA [id number] [address] [place] [address] [place] Neutrophils (Bld) [#/Vol] 6.41 10*3/uL Normal 1.45-7.50 [facility] Comment on above: Order Comment: Speci men Type: BLOOD SPECIMEN [facility]: [facility] Address: [address] [place], [place] [address] Performed By: #### 5 7021-8 #### [facility] CLIA [id number] [address] [place] [address] [place] Neutrophils/100 WBC (Bld) 74.7 % Normal [facility] Comment on above: Order Comment: Speci men Type: BLOOD SPECIMEN [facility]: [facility] Address: [address] [place] [address] Performed By: #### 5 7021-8 #### [facility] CLIA [id number] [address] [place] [address] [place] Nucleated RBC (Bld) [#/Vol] 10*3/uL Normal <0.01 [facility] Comment on above: Order Comment: Speci men Type: BLOOD SPECIMEN [facility]: [facility] Address: [address] [place] [address] Performed By: #### 5 7021-8 #### [facility] CLIA [id number] [address] [place] [address] [place] Nucleated RBC/100 WBC (Bld) [Ratio] 0.0 /100 WBC Normal [facility] Comment on above: Order Comment: Speci men Type: BLOOD SPECIMEN [facility] Facility: [facility] Address: [address] [place] [address] Performed By: #### 5 7021-8 #### [facility] CLIA [id number] [address] [place] [address] [place] Platelet mean volume (Bld) [Entitic vol] 9.0 fL Normal 9.0-12.7 [facility] Comment on above: Order Comment: Speci men Type: BLOOD SPECIMEN [facility] Facility: [facility] Address: [address] [place] [address] Performed By: #### 5 7021-8 #### [facility] CLIA [id number] [address] [place] [address] [place] Platelets (Bld) [#/Vol] 246 10*3/uL Normal 150-400 [facility] Comment on above: Order Comment: Speci men Type: BLOOD SPECIMEN [facility] Facility: [facility] Address: [address] [place] [address] Performed By: #### 5 7021-8 #### [facility] CLIA [id number] [address] [place] [address] OF [facility] RBC (Bld) [#/Vol] 3.34 10*6/uL Low 3.90-5.20 [facility] Comment on above: Order Comment: Speci men Type: BLOOD SPECIMEN [facility] Facility: [facility] Address: [address] [place] [address] Performed By: #### 5 7021-8 #### [facility] CLIA [id number] [address] [place] [address] WBC (Bld) [#/Vol] 8.57 10*3/uL Normal 3.70-11.00 [facility] Comment on above: Order Comment: Speci men Type: BLOOD SPECIMEN [facility] Facility: [facility] Address: [address] [place] [address] Performed By: #### 5 7021-8 #### [facility] [place] [id number] [address] [place] [address] CONSULT PROGon 03-31-2022 CONSULT PROG HNO ID: [id number] Author: Joslyn Jain APRN.CNP Service: Pain Management [...] AND U (more content not included)... Normal [facility] Magnesium SerPl-mCncon 03-31 Magnesium [Mass/Vol] 1.6 mg/dL Low 1.7-2.3 [facility] Comment on above: Order Comment: Speci men Type: BLOOD SPECIMEN [facility] Facility: [facility] Address: [address] [place] [address] Performed By: #### 5 8410-2 #### [facility] CLIA [id number] [place] [address] NURSING PROGon 03-31-2022 NURSING PROG HNO ID: [id number] Author: Daisy Amaya RN Service: Nursing Author Type: Registered Nurse Type: Nursing Progress Note Filed: 03/31/2022 4:56 PM Note Text: Nursing Progress Note Patient Name: Mary Leal Patient Location: [place] [address] __ Daily Note: 0931- Pt A+Ox3. Up with standby assist. Ambulated pod multiple times. Laps intact. Old ostomy site WNL. Pt having liquid brown BMs. Voiding adq. No nausea, cp, or sob. Taps infusing per JAN. Pain controlled with PRN oxy. No further needs at this time. This note was completed by: Daisy Amaya [facility] NURSING PROG HNO ID: [id number] Author: Mariluz Carnes, RN Service: Nursing Author Type: Registered Nurse Type: Nursing Progress Note Filed: 03/30/2022 11:47 PM Note Text: Nursing Progress Note Patient Name: Mary Leal Patient Location: / __ Daily Note: Pt's BP 90/52. Patient asymptomatic. Surgery made aware. Order in for [employer] LR 500CC's. This note was completed by: Mariluz Carnes [facility] Phosphate SerPl-mCncon 03-31 Phosphate [Mass/Vol] 2.7 mg/dL Normal 2.7-4.8 [facility] Comment on above: Order Comment: Speci men Type: BLOOD SPECIMEN [facility]: [facility] Address: [address] [place] [address] Performed By: #### 5 8410-2 #### [facility] CLIA [id number] [address] [place] [address] [place] Basic metabolic 2000 panelon 03-30-2022 Anion gap [Moles/Vol] 10 mmol/L Normal 9-18 [facility] Comment on above: Order Comment: Speci men Type: BLOOD SPECIMEN [facility] Facility: [facility] Address: [address] [place] [address] Performed By: #### 1 9123-9, 2777-1, 41538-4 #### [facility] CLIA [id number] [place] [address] [place] Calcium [Mass/Vol] 8.5 mg/dL Normal 8.5-10.2 [facility] Comment on above: Order Comment: Speci men Type: BLOOD SPECIMEN Ordering Facility: [facility] Address: [address] [place] [address] Performed By: #### 1 9123-9, 2777-1, 08908-6 #### [facility] [facility] CLIA [id number] [address] [place] [address] [place] Chloride [Moles/Vol] 103 mmol/L Normal 97-105 [facility] Comment on above: Order Comment: Speci men Type: BLOOD SPECIMEN Ordering Facility: [facility] Address: [address] [place] [address] Performed By: #### 1 9123-9, 2777-, 75217-4 #### [facility] CLIA [id number] [address] [place] [address] [place] CO2 [Moles/Vol] 24 mmol/L Normal 22-30 [facility] Comment on above: Order Comment: Speci men Type: BLOOD SPECIMEN Ordering Facility: [facility] Address: [address] [place] [address] Performed By: #### 1 9123-9, 2777-, 30866-8 #### [facility] CLIA [id number] [address] [place] [address] [place] Creatinine [Mass/Vol] 0.69 mg/dL Normal 0.58-0.96 [facility] Comment on above: Order Comment: Speci men Type: BLOOD SPECIMEN Ordering Facility: [facility] Address: [address] [place] [address] Performed By: #### 1 9123-9, 2777-, 30519-5 #### [facility] CLIA [id number] [address] [place] [address] [place] ESTIMATED GLOMERULAR FILTRATION RATE 107 mL/min/1.73m??? Normal >=60 [facility] Comment on above: Order Comment: Speci men Type: BLOOD SPECIMEN Ordering Facility: [facility] Address: [address] [place] [address] Result Comment: Mary mated Glomerular Filtration Rate [...] GFR. Performed By: #### 1 9123-9, 2777-1, 67710-5 #### [facility] CLIA [id number] [place] [address] [place] Glucose [Mass/Vol] 117 mg/dL High 74-99 [facility] Comment on above: Order Comment: Leanne terry Type: BLOOD SPECIMEN Ordering Facility: [facility] Address: [address] [place] [address] Result Comment: The [place] Diabetes [employer] (ADA) provides guidance for cutoff [...] Standards of Medical Care in Diabetes 2016, [place] [employer]. Diabetes Care. 2016.39(Suppl 1). Performed By: #### 1 9123-9, 2777-, 49869-2 #### [facility] CLIA [id number] [place] [address] [place] Potassium [Moles/Vol] 3.9 mmol/L Normal 3.7-5.1 [facility] Comment on above: Order Comment: Leanne terry Type: BLOOD SPECIMEN Ordering Facility: [facility] Address: [address] [id number] Performed By: #### 1 9123-9, 2777-, 52668-8 #### [facility] CLIA [id number] [address] [place] [address] [place] Sodium [Moles/Vol] 137 mmol/L Normal 136-144 [facility] Comment on above: Order Comment: Leanne terry Type: BLOOD SPECIMEN Ordering Facility: [facility] Address: [address] [place], [place] [address] Performed By: #### 1 9123-9, 2777-1, 83453-7 #### [facility] CLIA [id number] [address] [place] [address] [place] [facility] Urea nitrogen [Mass/Vol] 13 mg/dL Normal 7-21 [facility] Comment on above: Order Comment: Speci men Type: BLOOD SPECIMEN Ordering Facility: [facility] Address: [address] [place] [address] Performed By: #### 1 9123-9, 2777-1, 38376-9 #### [facility] CLIA [id number] [address] [place] [address] CBC panel Auto (Bld)on 03-30 Erythrocyte distribution width (RBC) [Ratio] 12.8 % Normal 11.5-15.0 [facility] Comment on above: Order Comment: Speci men Type: BLOOD SPECIMEN Ordering Facility: [facility] Address: [address] [place] [address] Performed By: #### 5 8410-2 #### [facility] CLIA [id number] [address] [place] [address] Hematocrit (Bld) [Volume fraction] 35.0 % Low 36.0-46.0 [facility] Comment on above: Order Comment: Speci men Type: BLOOD SPECIMEN Ordering Facility: [facility] Address: [address] [place] [address] Performed By: #### 5 8410-2 #### [facility] CLIA [id number] [address] [place] [address] [place] Hemoglobin (Bld) [Mass/Vol] 11.8 g/dL Normal 11.5-15.5 [facility] Comment on above: Order Comment: Speci men Type: BLOOD SPECIMEN Ordering Facility: [facility] Address: [address] [place] [address] Performed By: #### 5 8410-2 #### [facility] CLIA [id number] [address] [place] [address] [place] MCH (RBC) [Entitic mass] 30.6 pg Normal 26.0-34.0 [facility] Comment on above: Order Comment: Speci men Type: BLOOD SPECIMEN Ordering Facility: [facility] Address: [address] [place] [address] Performed By: #### 5 8410-2 #### [facility] CLIA [id number] [address] [place] [address] [place] MCHC (RBC) [Mass/Vol] 33.7 g/dL Normal 30.5-36.0 [facility] Comment on above: Order Comment: Speci men Type: BLOOD SPECIMEN Ordering Facility: [facility] Address: [address] [place] [address] Performed By: #### 5 8410-2 #### [facility] CLIA [id number] [address] [place] [address] [place] MCV (RBC) [Entitic vol] 90.7 fL Normal 80.0-100.0 [facility] Comment on above: Order Comment: Speci men Type: BLOOD SPECIMEN Ordering Facility: [facility] Address: [address] [place] [address] Performed By: #### 5 8410-2 #### [facility] CLIA [id number] [address] [place] [address] [place] Nucleated RBC (Bld) [#/Vol] 10*3/uL Normal <0.01 [facility] Comment on above: Order Comment: Speci men Type: BLOOD SPECIMEN Ordering Facility: [facility] Address: [address] [place] [address] Performed By: #### 5 8410-2 #### [facility] CLIA [id number] [address] [place] [address] [place] Platelet mean volume (Bld) [Entitic vol] 8.9 fL Low 9.0-12.7 [facility] Comment on above: Order Comment: Speci men Type: BLOOD SPECIMEN Ordering Facility: [facility] Address: [address] [place] [address] Performed By: #### 5 8410-2 #### [facility] CLIA [id number] [address] [place] [address] [place] Platelets (Bld) [#/Vol] 293 10*3/uL Normal 150-400 [facility] Comment on above: Order Comment: Speci men Type: BLOOD SPECIMEN Ordering Facility: [facility] Address: [address] [place] [address] Performed By: #### 5 8410-2 #### [facility] CLIA [id number] [address] [place] [address] [place] RBC (Bld) [#/Vol] 3.86 10*6/uL Low 3.90-5.20 [facility] Comment on above: Order Comment: Speci men Type: BLOOD SPECIMEN Ordering Facility: [facility] Address: [address] [place] [address] Performed By: #### 5 8410-2 #### [facility] CLIA [id number] [address] [place] [address] [place] WBC (Bld) [#/Vol] 11.25 10*3/uL High 3.70-11.00 [facility] Comment on above: Order Comment: Speci men Type: BLOOD SPECIMEN Ordering Facility: [facility] Address: [address] [place] [address] Performed By: #### 5 8410-2 #### [facility] CLIA [id number] [address] [place] [address] [place] CONSULT PROGon 03-30-2022 CONSULT PROG HNO ID: [id number] Author: Joslyn Jain APRN.DOOR INSTALLER Service: Pain Management Author Type: Nurse Practitioner [...] eGFR >= (more content not included)... Normal [facility] Magnesium SerPl-mCncon 03-30 Magnesium [Mass/Vol] 1.6 mg/dL Low 1.7-2.3 [facility] Comment on above: Order Comment: Speci men Type: BLOOD SPECIMEN Ordering Facility: [facility] Address: [address] [place] [address] Performed By: #### 1 9123-9, 2777-1, 70757-6 #### [facility] CLIA [id number] [address] [place] [address] [place] Phosphate SerPl-mCncon 03-30 Phosphate [Mass/Vol] 2.9 mg/dL Normal 2.7-4.8 [facility] Comment on above: Order Comment: Speci men Type: BLOOD SPECIMEN Ordering Facility: [facility] Address: [address] [place] [address] Performed By: #### 1 9123-9, 2777-1, 15777-4 #### [facility] CLIA [id number] [address] [place] [address] [place] ANES POSTPROC EVALon 022 ANES POSTPROC EVAL HNO ID: [id number] Author: Nathanael Craig DO Service: Anesthesiology Author Type: Anesthesiologist Type: Anesthesia Postprocedure Evaluation Filed: 03/29/2022 8:29 AM Note Text: POST ANESTHESIA EVALUATION NOTE : 1970 Procedure Summary Date: 03/28/22 Room / Location: OR12 / OR Anesthesia Start: 907 Anesthesia Stop: [...] March 29, 2022 TIME: 8:29 AM CSN: [id number] Normal [facility] Basic metabolic 2000 panelon 03-29-2022 Anion gap [Moles/Vol] 9 mmol/L Normal 9-18 [facility] Comment on above: Order Comment: Speci men Type: BLOOD SPECIMEN Ordering Facility: [facility] Address: [address] [place] [id number] Performed By: #### 5 8410-2 #### [facility] CLIA [id number] [address] [place] [address] [place] Calcium [Mass/Vol] 7.9 mg/dL Low 8.5-10.2 [facility] Comment on above: Order Comment: Speci men Type: BLOOD SPECIMEN Ordering Facility: [facility] Address: [address] [place] [address] Performed By: #### 5 8410-2 #### [facility] CLIA [id number] [address] [place] [address] [place] Chloride [Moles/Vol] 105 mmol/L Normal 97-105 [facility] Comment on above: Order Comment: Speci men Type: BLOOD SPECIMEN Ordering Facility: [facility] Address: [address] [place] [address] Performed By: #### 5 8410-2 #### [facility] CLIA [id number] [address] [place] [address] [place] CO2 [Moles/Vol] 24 mmol/L Normal 22-30 [facility] Comment on above: Order Comment: Speci men Type: BLOOD SPECIMEN Ordering Facility: [facility] Address: [address] [place] [address] Performed By: #### 5 8410-2 #### [facility] CLIA [id number] [address] [place] [address] [place] Creatinine [Mass/Vol] 0.70 mg/dL Normal 0.58-0.96 [facility] Comment on above: Order Comment: Speci men Type: BLOOD SPECIMEN Ordering Facility: [facility] Address: [address] [place] [address] Performed By: #### 5 8410-2 #### [facility] CLIA [id number] [address] [place] [address] [place] ESTIMATED GLOMERULAR FILTRATION RATE 106 mL/min/1.73m??? Normal >=60 [facility] Comment on above: Order Comment: Speci men Type: BLOOD SPECIMEN Ordering Facility: [facility] Address: [address] [place] [address] Result Comment: Mary mated Glomerular Filtration Rate [...] #### 5 8410-2 #### [facility] CLIA [id number] [address] [place] [address] [place] Glucose [Mass/Vol] 92 mg/dL Normal 74-99 [facility] Comment on above: Order Comment: Leanne terry Type: BLOOD SPECIMEN Ordering Facility: [facility] Address: [address] [place] [address] Result Comment: The [place] Diabetes [employer] (ADA) provides guidance for cutoff [...] Standards of Medical Care in Diabetes 2016, [place] [employer]. Diabetes Care. 2016.39(Suppl 1). Performed By: #### 5 8410-2 #### [facility] CLIA [id number] [address] [place] [address] [place] Potassium [Moles/Vol] 4.1 mmol/L Normal 3.7-5.1 [facility] Comment on above: Order Comment: Leanne terry Type: BLOOD SPECIMEN Ordering Facility: [facility] Address: [address] [address] Performed By: #### 5 8410-2 #### [facility] CLIA [id number] [address] [place] [address] [place] Sodium [Moles/Vol] 138 mmol/L Normal 136-144 [facility] Comment on above: Order Comment: Leanne terry Type: BLOOD SPECIMEN Ordering Facility: [facility] Address: [address] [place] [address] Performed By: #### 5 8410-2 #### [facility] CLIA [id number] [address] [place] [address] [place] Urea nitrogen [Mass/Vol] 12 mg/dL Normal 7- [facility] Comment on above: Order Comment: Speci men Type: BLOOD SPECIMEN Ordering Facility: [facility] Address: [address] [place] [address] Performed By: #### 5 8410-2 #### [facility] CLIA [id number] [address] [place] [address] [place] CBC W Auto Differential pane l (Bld)on 03-29-2022 Basophils (Bld) [#/Vol] 0.04 10*3/uL Normal <0.11 [facility] Comment on above: Order Comment: Speci men Type: BLOOD SPECIMEN Ordering Facility: [facility] Address: [address] [place] [address] Performed By: #### 5 7021-8 #### [facility] CLIA [id number] [address] [place] [address] [place] Basophils/100 WBC (Bld) 0.6 % Normal [facility] Comment on above: Order Comment: Speci men Type: BLOOD SPECIMEN Ordering Facility: [facility] Address: [address] [place] [address] Performed By: #### 5 7021-8 #### [facility] CLIA [id number] [address] [place] [address] [place] Differential cell count method Nom (Bld) Auto Normal [facility] Comment on above: Order Comment: Speci men Type: BLOOD SPECIMEN Ordering Facility: [facility] Address: [address] [place] [address] Performed By: #### 5 7021-8 #### [facility] CLIA [id number] [address] [place] [address] [place] Eosinophils (Bld) [#/Vol] 0.16 10*3/uL Normal <0.46 [facility] Comment on above: Order Comment: Speci men Type: BLOOD SPECIMEN Ordering Facility: [facility] Address: [address] [place] [address] Performed By: #### 5 7021-8 #### [facility] CLIA [id number] [address] [place] [address] [place] Eosinophils/100 WBC (Bld) 2.3 % Normal [facility] Comment on above: Order Comment: Speci men Type: BLOOD SPECIMEN Ordering Facility: [facility] Address: [address] [place] [address] Performed By: #### 5 7021-8 #### [facility] CLIA [id number] [address] [place] [address] [place] Erythrocyte distribution width (RBC) [Ratio] 12.8 % Normal 11.5-15.0 [facility] Comment on above: Order Comment: Speci men Type: BLOOD SPECIMEN Ordering Facility: [facility] Address: [address] [place] [address] Performed By: #### 5 7021-8 #### [facility] CLIA [id number] [address] [place] [address] [place] Hematocrit (Bld) [Volume fraction] 32.3 % Low 36.0-46.0 [facility] Comment on above: Order Comment: Speci men Type: BLOOD SPECIMEN Ordering Facility: [facility] Address: [address] [place] [address] Performed By: #### 5 7021-8 #### [facility] CLIA [id number] [address] [place] [address] [place] Hemoglobin (Bld) [Mass/Vol] 10.7 g/dL Low 11.5-15.5 [facility] Comment on above: Order Comment: Speci men Type: BLOOD SPECIMEN Ordering Facility: [facility] Address: [address] [place] [address] Performed By: #### 5 7021-8 #### [facility] CLIA [id number] [address] [place] [address] [place] IMMATURE GRAN % 0.3 % Normal [facility] Comment on above: Order Comment: Speci men Type: BLOOD SPECIMEN Ordering Facility: [facility] Address: [address] [place] [address] Performed By: #### 5 7021-8 #### [facility] CLIA [id number] [address] [place] [address] [place] IMMATURE GRAN ABS <0.03 Normal <0.10 [facility] Comment on above: Order Comment: Speci men Type: BLOOD SPECIMEN Ordering Facility: [facility] Address: [address] [place] [address] Performed By: #### 5 7021-8 #### [facility] CLIA [id number] [address] [place] [address] Lymphocytes (Bld) [#/Vol] 1.39 10*3/uL Normal 1.00-4.00 [facility] Comment on above: Order Comment: Speci men Type: BLOOD SPECIMEN Ordering Facility: [facility] Address: [address] [place] [address] Performed By: #### 5 7021-8 #### [facility] CLIA [id number] [address] [place] [address] Lymphocytes/100 WBC (Bld) 19.7 % Normal [facility] Comment on above: Order Comment: Speci men Type: BLOOD SPECIMEN Ordering Facility: [facility] Address: [address] [place] [address] Performed By: #### 5 7021-8 #### [facility] CLIA [id number] [address] [place] [address] [place] MCH (RBC) [Entitic mass] 29.8 pg Normal 26.0-34.0 [facility] Comment on above: Order Comment: Speci men Type: BLOOD SPECIMEN Ordering Facility: [facility] Address: [address] [place] [address] Performed By: #### 5 7021-8 #### [facility] CLIA [id number] [address] [place] [address] [place] MCHC (RBC) [Mass/Vol] 33.1 g/dL Normal 30.5-36.0 [facility] Comment on above: Order Comment: Speci men Type: BLOOD SPECIMEN Ordering Facility: [facility] Address: [address] [place] [address] Performed By: #### 5 7021-8 #### [facility] CLIA [id number] [address] [place] [address] [place] MCV (RBC) [Entitic vol] 90.0 fL Normal 80.0-100.0 [facility] Comment on above: Order Comment: Speci men Type: BLOOD SPECIMEN Ordering Facility: [facility] Address: [address] [place] [address] Performed By: #### 5 7021-8 #### [facility] CLIA [id number] [address] [place] [address] [place] Monocytes (Bld) [#/Vol] 0.55 10*3/uL Normal <0.87 [facility] Comment on above: Order Comment: Speci men Type: BLOOD SPECIMEN Ordering Facility: [facility] Address: [address] [place] [address] Performed By: #### 5 7021-8 #### [facility] CLIA [id number] [address] [place] [address] [place] Monocytes/100 WBC (Bld) 7.8 % Normal [facility] Comment on above: Order Comment: Speci men Type: BLOOD SPECIMEN Ordering Facility: [facility] Address: [address] [place] [address] Performed By: #### 5 7021-8 #### [facility] CLIA [id number] [address] [place] [address] [place] Neutrophils (Bld) [#/Vol] 4.88 10*3/uL Normal 1.45-7.50 [facility] Comment on above: Order Comment: Speci men Type: BLOOD SPECIMEN Ordering Facility: [facility] Address: [address] [place] [address] Performed By: #### 5 7021-8 #### [facility] CLIA [id number] [address] [place] [address] [place] Neutrophils/100 WBC (Bld) 69.3 % Normal [facility] Comment on above: Order Comment: Speci men Type: BLOOD SPECIMEN Ordering Facility: [facility] Address: [address] [place] [address] Performed By: #### 5 7021-8 #### [facility] CLIA [id number] [address] [place] [address] [place] Nucleated RBC (Bld) [#/Vol] 10*3/uL Normal <0.01 [facility] Comment on above: Order Comment: Speci men Type: BLOOD SPECIMEN Ordering Facility: [facility] Address: [address] [place] [address] Performed By: #### 5 7021-8 #### [facility] CLIA [id number] [address] [place] [address] [place] Nucleated RBC/100 WBC (Bld) [Ratio] 0.0 /100 WBC Normal [facility] Comment on above: Order Comment: Speci men Type: BLOOD SPECIMEN Ordering Facility: [facility] Address: [address] [place] [address] Performed By: #### 5 7021-8 #### [facility] CLIA [id number] [address] [place] [address] [place] Platelet mean volume (Bld) [Entitic vol] 9.0 fL Normal 9.0-12.7 [facility] Comment on above: Order Comment: Speci men Type: BLOOD SPECIMEN Ordering Facility: [facility] Address: [address] [place] [address] Performed By: #### 5 7021-8 #### [facility] CLIA [id number] [address] [place] [address] [place] Platelets (Bld) [#/Vol] 241 10*3/uL Normal 150-400 [facility] Comment on above: Order Comment: Speci men Type: BLOOD SPECIMEN Ordering Facility: [facility] Address: [address] [place] [address] Performed By: #### 5 7021-8 #### [facility] CLIA [id number] [address] [place] [address] [place] RBC (Bld) [#/Vol] 3.59 10*6/uL Low 3.90-5.20 [facility] Comment on above: Order Comment: Speci men Type: BLOOD SPECIMEN Ordering Facility: [facility] Address: [address] [place] [address] Performed By: #### 5 7021-8 #### [facility] CLIA [id number] [address] [place] [address] [place] [facility] [place] WBC (Bld) [#/Vol] 7.04 10*3/uL Normal 3.70-11.00 [facility] Comment on above: Order Comment: Speci men Type: BLOOD SPECIMEN Ordering Facility: [facility] Address: [address] [place] [address] Performed By: #### 5 7021-8 #### [facility] CLIA [id number] [address] [place] [address] CONSULT PROGon 03-29-2022 CONSULT PROG HNO ID: [id number] Author: Joslyn Jain APRN.DOOR INSTALLER Service: Pain Management Author Type: Nurse Practitioner [...] is on liq diet, currently on Dilaudid MEDICAL LAB SCIENTIST at 0/0.2/10/6 last 2 hours 06/27 bolus [...] No Relieved: Yes - NOW with increase MEDICAL LAB SCIENTIST and Repositioning and MEDICAL LAB SCIENTIST Is patient satisfied with pain control: Yes [...] mL PERIPHERAL NERVE CATHETER CONTINUOUS - HYDROmorphone MEDICAL LAB SCIENTIST 0.5 mg/mL in NaCl 0.9% 100 mL [...] % 69.3 (more content not included)... Normal [facility] Magnesium SerPl-mCncon 03-29 Magnesium [Mass/Vol] 1.4 mg/dL Low 1.7-2.3 [facility] Comment on above: Order Comment: Speci men Type: BLOOD SPECIMEN Ordering Facility: [facility] Address: [address] [place] [address] Performed By: #### 5 8410-2 #### [facility] CLIA [id number] NURSING PROGon 03-29-2022 NURSING PROG HNO ID: [id number] Author: Dipti Crowley RN Service: Nursing Author Type: Registered Nurse Type: Nursing Progress Note Filed: 03/29/2022 2:00 PM Note Text: Nursing Progress Note Patient Name: Mary Leal Patient Location: [place] [address]/[address] __ Daily Note: Patient VSS. RA POx. Pain level better controlled now that MEDICAL LAB SCIENTIST initiated. B/L Ropivacaine Tap Blocks with dressings CDI. Magnesium replenished as ordered. 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 Dressing to old ostomy saturated [...] This note was completed by: Dipti Crowley [facility] NURSING PROG HNO ID: [id number] Author: Kev Leone RN Service: ? Author Type: Registered Nurse Type: Nursing Progress Note Filed: 03/29/2022 3:53 AM Note Text: Nursing Progress Note Patient Name: Mary Leal Patient Location: [place] [address] __ Daily Note: 0350: Pt states she is in 10/10 pain, pt has no PO pain meds ordered, page sent to surgery resident This note was completed by: Kev Leone [facility] PT EDon 03-29-2022 PT ED HNO ID: [id number] Author: Merced Morales DTR Service: Nutrition Therapy Author Type: Cane Flume Watchman Type: Patient Education Filed: 03/29/2022 11:05 AM [...] March 29, 2022 TIME: 11:04 AM PAGER: [facility] Phosphate SerPl-mCncon 03-29 Phosphate [Mass/Vol] 2.9 mg/dL Normal 2.7-4.8 [facility] Comment on above: Order Comment: Speci men Type: BLOOD SPECIMEN Ordering Facility: [facility] Address: [address] [place] [address] Performed By: #### 5 8410-2 #### [facility] CLIA [id number] [address] [place] [address] [place] ANES PRE-OPon 03-28-2022 ANES PRE-OP HNO ID: [id number] Author: Anibal Bertrand MD Service: Anesthesiology Author [...] (FLONASE) 50 mcg/actuation nasal spray Use 1 [place] in each nostril on (more content not included)... [facility] BRIEF OP NOTon 03-28-2022 BRIEF OP NOT HNO ID: [id number] Author: Nita Lamas MD Service: Colorectal Author Type: Fellow Type: Brief Op Note Filed: 03/28/2022 3:43 PM Note Text: BRIEF OPERATIVE NOTE - COLORECTAL SURGERY Log ID: [id number] Surgery/Procedure Date: 03/28/2022 Incision/Procedure Start Time: 9:47 AM Incision Close/Procedure End Time: 3:40 PM Surgeon(s) and It Training Specialist(s): Surgeon(s) and Role: * Mary Obrien MD [...] DATE: March 28, 2022 TIME: 3:42 PM [facility] NURSING PROGon 03-28-2022 NURSING PROG HNO ID: [id number] Author: Merced Lay RN Service: ? Author Type: Registered Nurse Type: Nursing Progress Note Filed: 03/28/2022 6:56 PM Note Text: Nursing Progress Note Patient Name: Mary Leal Patient Location: [place] [address] [address] __ Transfer Note: Patient transferred into room/unit PK3B22 in stable condition. Actions taken: No futher actions taken at this time. Will continue to monitor and check with patient. Paged surgical team. Pt has TAP blocks, but orders were discontinued from PACU. New orders for blocks need to be placed in eMAR. Awaiting call back or orders. This note was completed by: Merced Lay [facility] NURSING PROG HNO ID: [id number] Author: Monica Nicole RN Service: Nursing Author Type: Registered Nurse Type: Nursing Progress Note Filed: 03/28/2022 6:35 PM Note Text: Nursing Progress Note Patient Name: Mary Leal Patient Location: [place] OR POOL __ Daily Note: 0: Dr. Novak notified of patients increase in heart rate from arrival to post op. Patient HR now maintaining in the 120s. 1830: resident surgeon rounding at patient bedside. Dressing and abdomen assessed- drainage to be expected on island dressing. Notified him of patients HR running high and notified that patient normally takes 50mg atenolol but held today for surgery. Patient's pain managed and other VS stable at this time. resident surgeon is OK with patient going to regular nursing floor at this time. Family updated. This note was completed by: Monica Nicole [facility] NURSING PROG HNO ID: [id number] Author: Vianney Chacon RN Service: Nursing Author [...] (RECOMMENDATION): None Electronically Signed By: Vianney Chacon [facility] OPERATIVE NOon 03-28-2022 OPERATIVE NO HNO ID: [id number] Author: Mary Obrien MD Service: Colorectal Author Type: Physician Type: Operative Report Filed: 03/28/2022 5:06 PM Note Text: COLON AND RECTAL SURGERY OPERATIVE REPORT PATIENT NAME: Mary Leal ADMISSION DATE: 03/28/2022 LOG ID: [id number] SURGERY/PROCEDURE DATE: 03/28/2022 INCISION/PROCEDURE START TIME: 9:47 AM INCISION CLOSE/PROCEDURE END TIME: 3:40 PM AGE: [age] year old SEX: female SURGEON(S)/PROCEDURALI ST(S) AND SHOP GIRL(S): Surgeon(s) and Role: * Mary Obrien MD [...] The abdome (more content not included)... Normal [facility] SURGICAL PATHOLOGYon 022 CASE REPORT Normal [facility] Comment on above: Order Comment: Speci men Type: BLOOD SPECIMEN Ordering Facility: [facility] Address: [address] [place] [address] [place] [address] Result Comment: Surg [facility] Pathology Report Case: [id number] Authorizing Provider: Mary Obrien MD Collected: 03/28/2022 01:43 PM Ordering Location: [facility] Received: 03/28/2022 04:10 PM Operating Room Pathologist: Alexei Rodriguez MD Specimen: COLON RESECTION, terminal ileum with ileostomy Performed By: #### 5 7021-8 #### [facility] CLIA [id number] CLINICAL HISTORY ILEORECTAL ANASTOMOSIS, TAKEDOWN OF ILEOSTOMY [facility] Comment on above: Order Comment: Speci men Type: BLOOD SPECIMEN Ordering Facility: [facility] Address: [address] [place] [address] Performed By: #### 5 7021-8 #### [facility] CLIA [id number] [address] [place] [address] DIAGNOSIS COMMENT The histologic findings are nonspecific [...] of associated inflammation or infectious organisms. Normal [facility] Comment on above: Order Comment: Speci men Type: BLOOD SPECIMEN Ordering Facility: [facility] Address: [address] [place] [address] Performed By: #### 5 7021-8 #### [facility] CLIA [id number] [address] [place] [address] FINAL DIAGNOSIS [facility] Comment on above: Order Comment: Speci men Type: BLOOD SPECIMEN Ordering Facility: [facility] Address: [address] [place] [address] Result Comment: Arlee n and terminal ileum with ileostomy, resection: - Colon with patchy active colitis, submucosal fibrosis, acute serositis, and fibrovascular adhesions (see comment). - Small bowel with focal transmural defect, acute serositis, fibrovascular adhesions, and changes consistent with ileostomy site. - Benign lymph nodes. JEL 03/31/2022 Performed By: #### 5 7021-8 #### [facility] CLIA [id number] [address] [place] [address] [place] FINAL PERFORMING LAB Normal [facility] Comment on above: Order Comment: Speci men Type: BLOOD SPECIMEN Ordering Facility: [facility] Address: [address] [place] [address] Result Comment: Diag nostic interpretation performed at [facility], [address] [place] [address] CLIA# [id number] Lugger: Rajiv Anderson M.D. Performed By: #### 5 7021-8 #### [facility] CLIA [id number] [address] [place] [address] STATES [facility] GROSS DESCRIPTION Normal [facility] Comment on above: Order Comment: Speci men Type: BLOOD SPECIMEN Ordering Facility: [facility] Address: [address] [place] [address] Result Comment: A. C OLON RESECTION. Received [...] diverticula. The serosa is jaimes-pink and smooth. [employer] sections are submitted from distal to proximal [...] 2022 9:53 AM Gross examination performed at [facility], [address] [place] [address] CLIA # [id number] Performed By: #### 5 7021-8 #### [facility] CLIA [id number] [address] [place] [address] [place] Q - CBC W/DIFF AND PLTon BASOABS 59 cells/uL Normal 0-200 [facility] Instructional Facilitator Comment on above: Order Comment: [facility] performed at: QPT, [facility], [address] [place] [address], [address] [place] [address], [place], [address], Lugger: Gopal Hamilton MD [facility] Date/Time: [id number] [facility] Results Received Date/Time: [facility] Reported Date/Time: Performed By: #### 9 68T, 53130T, %8293, 92704V, 6399, 496X #### [facility] Default [address] [place] [address] Basophils/100 WBC (Bld) 1.0 % Normal [facility] Specialist Comment on above: Order Comment: [facility] performed at: [email or web address], [facility], [address] , [address] [place] [address], [address] [place] [address], Lugger: Gopal Hamilton MD [facility] Date/Time: [facility] Results Received Date/Time: [facility] Reported Date/Time: Performed By: #### 9 68T, 43349O, %8293, 36677T, 6399, 496X #### [facility] [address] [place] [address] EOSABS 171 cells/uL Normal 15-500 [facility] Comment on above: Order Comment: [facility] performed at: [email or web address], [facility], [address] , [address] [place] [address], [address] [place] [address], Lugger: Gopal Hamilton MD [facility] Date/Time: [facility] Results Received Date/Time: [facility] Reported Date/Time: Performed By: #### 9 68T, 68869B, %8293, 46255P, 6399, 496X #### [facility] [address] [place] [address] Eosinophils/100 WBC (Bld) 2.9 % Normal [facility] Specialist Comment on above: Order Comment: [facility] performed at: [email or web address], [facility], [address] , [address] [place] [address], [address] [place] [address], Lugger: Gopal Hamilton MD [facility] Date/Time: [facility] Results Received Date/Time: [facility] Reported Date/Time: Performed By: #### 9 68T, 78439X, %8293, 71798D, 6399, 496X #### [facility] [address] [place] [address] Erythrocyte distribution width (RBC) [Ratio] 12.9 % Normal 11.0-15.0 [facility] Instructional Facilitator Comment on above: Order Comment: [facility] performed at: [email or web address], [facility], [address] [place] [address], [address] [place] [address], [address] [place] [address], Lugger: Gopal Hamilton MD [facility] Date/Time: [facility] Results Received Date/Time: [facility] Reported Date/Time: Performed By: #### 9 68T, 74942O, %8293, 97692K, 6399, 496X #### [facility] [address] [place] [address] Hematocrit (Bld) [Volume fraction] 38.1 % Normal 35.0-45.0 [facility] Instructional Facilitator Comment on above: Order Comment: [facility] performed at: [email or web address], [facility], [address] [place] [address], [address] [place] [address], [address] [place] [address], Lugger: Gopal Hamilton MD [facility] Date/Time: [facility] Results Received Date/Time: [facility] Reported Date/Time: Performed By: #### 9 68T, 76743Y, %8293, 43925Y, 6399, 496X #### [facility] [address] [place] [address] Hemoglobin (Bld) [Mass/Vol] 12.9 g/dL Normal 11.7-15.5 [facility] Instructional Facilitator Comment on above: Order Comment: [facility] performed at: [email or web address], [facility], [address] [place] [address], [address] [place] [address], [address] [place] [address], Lugger: Gopal Hamilton MD [facility] Date/Time: [facility] Results Received Date/Time: [facility] Reported Date/Time: Performed By: #### 9 68T, 63684J, %8293, 24114O, 6399, 496X #### [facility] [address] [place] [address] Lymphocytes (Bld) [#/Vol] 1.375 10*3/uL Normal 850-3900 [facility] Instructional Facilitator Comment on above: Order Comment: [facility] performed at: [email or web address], [facility], [address], [address] [place] [address], [address] [place] [address], Lugger: Gopal Hamilton MD [facility] Date/Time: [facility] Results Received Date/Time: [facility] Reported Date/Time: Performed By: #### 9 68T, 46500N, %8293, 18305T, 6399, 496X #### [facility] [address] [place] [address] Lymphocytes/100 WBC (Bld) 23.3 % Normal [facility] Instructional Facilitator Comment on above: Order Comment: [facility] performed at: [email or web address], [facility], [address], [address] [place] [address], [address] [place] [address], Lugger: Gopal Hamilton MD [facility] Date/Time: [facility] Results Received Date/Time: [facility] Reported Date/Time: Performed By: #### 9 68T, 89276Y, %8293, 06141W, 6399, 496X #### [facility] [address] [place] [address] MCH (RBC) [Entitic mass] 30.0 pg Normal 27.0-33.0 [facility] Instructional Facilitator Comment on above: Order Comment: [facility] performed at: [email or web address], [facility], [address], [address] [place] [address], [address] [place] [address], Lugger: Gopal Hamilton MD [facility] Date/Time: [facility] Results Received Date/Time: [facility] Reported Date/Time: Performed By: #### 9 68T, 76885X, %8293, 77217P, 6399, 496X #### [facility] [address] [place] [address] MCHC (RBC) [Mass/Vol] 33.9 g/dL Normal 32.0-36.0 [facility] Comment on above: Order Comment: [facility] performed at: [email or web address], [facility], [address] , [address] [place] [address], [address] [place] [address], Lugger: Gopal Hamilton MD [facility] Date/Time: [facility] Results Received Date/Time: [facility] Reported Date/Time: Performed By: #### 9 68T, 57812H, %8293, 03065T, 6399, 496X #### [facility] [address] [place] [address] MCV (RBC) [Entitic vol] 88.6 fL Normal 80.0-100.0 [facility] Specialist Comment on above: Order Comment: [facility] performed at: [email or web address], [facility], [address] , [address] [place] [address], [address] [place] [address], Lugger: Gopal Hamilton MD [facility] Date/Time: [facility] Results Received Date/Time: [facility] Reported Date/Time: Performed By: #### 9 68T, 30692W, %8293, 93428I, 6399, 496X #### [facility] [address] [place] [address] MONOABS 460 cells/uL Normal 200-950 [facility] Instructional Facilitator Comment on above: Order Comment: [facility] performed at: [email or web address], [facility], [address], [address] [place] [address], [address] [place] [address], Lugger: Gopal Hamilton MD [facility] Date/Time: [facility] Results Received Date/Time: [facility] Reported Date/Time: Performed By: #### 9 68T, 82280O, %8293, 35799M, 6399, 496X #### [facility] [address] [place] [address] Monocytes/100 WBC (Bld) 7.8 % Normal [facility] Instructional Facilitator Comment on above: Order Comment: [facility] performed at: [email or web address], [facility], [address], [address] [place] [address], [address] [place] [address], Lugger: Gopal Hamilton MD [facility] Date/Time: [facility] Results Received Date/Time: [facility] Reported Date/Time: Performed By: #### 9 68T, 11516N, %8293, 93830F, 6399, 496X #### [facility] [address] [place] [address] Neutrophils (Bld) [#/Vol] 3.835 10*3/uL Normal 6097-7613 [facility] Instructional Facilitator Comment on above: Order Comment: [facility] performed at: [email or web address], [facility], [address], [address] [place] [address], [address] [place] [address], Lugger: Gopal Hamilton MD [facility] Date/Time: [facility] Results Received Date/Time: [facility] Reported Date/Time: Performed By: #### 9 68T, 70050L, %8293, 13263K, 6399, 496X #### [facility] [address] [place] [address] Neutrophils/100 WBC (Bld) 65 % Normal [facility] Instructional Facilitator Comment on above: Order Comment: [facility] performed at: [email or web address], [facility], [address], [address] [place] [address], [address] [place] [address], Lugger: Gopal Hamilton MD [facility] Date/Time: [facility] Results Received Date/Time: [facility] Reported Date/Time: Performed By: #### 9 68T, 79931I, %8293, 79267U, 6399, 496X #### [facility] [address] [place] [address] Platelet mean volume (Bld) [Entitic vol] 9.3 fL Normal 7.5-12.5 [facility] Comment on above: Order Comment: [facility] performed at: [email or web address], [facility], [address] , [address] [place] [address], [address] [place] [address], Lugger: Gopal Hamilton MD [facility] Date/Time: [facility] Results Received Date/Time: [facility] Reported Date/Time: Performed By: #### 9 68T, 40706M, %8293, 93690X, 6399, 496X #### [facility] [address] [place] [address] Platelets (Bld) [#/Vol] 409 10*3/uL High 140-400 [facility] Comment on above: Order Comment: [facility] performed at: [email or web address], [facility], [address] , [address] [place] [address], [address] [place] [address], Lugger: Gopal Hamilton MD [facility] Date/Time: [facility] Results Received Date/Time: [facility] Reported Date/Time: Performed By: #### 9 68T, 43052N, %8293, 15728E, 6399, 496X #### [facility] [address] [place] [address] RBC (Bld) [#/Vol] 4.30 10*6/uL Normal 3.80-5.10 [facility] Comment on above: Order Comment: [facility] performed at: [email or web address], [facility], [address] , [address] [place] [address], [address] [place] [address], Lugger: Gopal Hamilton MD [facility] Date/Time: [facility] Results Received Date/Time: [facility] Reported Date/Time: Performed By: #### 9 68T, 04005O, %8293, 51618W, 6399, 496X #### [facility] [address] [place] [address] WBC (Bld) [#/Vol] 5.9 10*3/uL Normal 3.8-10.8 [facility] Instructional Facilitator Comment on above: Order Comment: [facility] performed at: [email or web address], [facility], [address], [address] [place] [address], [address] [place] [address], Lugger: Gopal Hamilton MD [facility] Date/Time: [facility] Results Received Date/Time: [facility] Reported Date/Time: Performed By: #### 9 68T, 42830J, %8293, 32541U, 6399, 496X #### [facility] [address] [place] [address] Q - COMPREHENSIVE METABOLIC PANEL W/EGFRon 03-10-2022 Albumin [Mass/Vol] 4.3 g/dL Normal 3.6-5.1 Jay [facility]ino [facility]ilit[facility] Comment on above: Order Comment: [facility] performed at: [email or web address], [facility], [address] [place] [address], [address] [place] [address], [address] [place] [address], Lugger: Gopal Hamilton MD [facility] Date/Time: [facility] Results Received Date/Time: [facility] Reported Date/Time: Performed By: #### 9 68T, 53079Y, %8293, 78604J, 6399, 496X #### [facility] [address] [place] [address] Albumin/Globulin [Mass ratio] 1.7 {ratio} Normal 1.0-2.5 [facility] Facilitator Comment on above: Order Comment: [facility] performed at: [email or web address], [facility], [address], [address] [place] [address], [address] [place] [address], Lugger: Gopal Hamilton MD [facility] Date/Time: [facility] Results Received Date/Time: [facility] Reported Date/Time: Performed By: #### 9 68T, 98362A, %8293, 63470J, 6399, 496X #### [facility] [address] [place] [address] ALP [Catalytic activity/Vol] 134 U/L High 31-125 [facility] Instructional Facilitator Comment on above: Order Comment: [facility] performed at: [email or web address], [facility], [address] [place] [address], [address] [place] [address], [address] [place] [address], Lugger: Gopal Hamilton MD [facility] Date/Time: [facility] Results Received Date/Time: [facility] Reported Date/Time: Performed By: #### 9 68T, 78371N, %8293, 13531J, 6399, 496X #### [facility] [address] [place] [address] ALT [Catalytic activity/Vol] 41 U/L High 6-29 [facility] Instructional Facilitator Comment on above: Order Comment: [facility] performed at: [email or web address], [facility], [address] [place] [address], [address] [place] [address], [address] [place] [address], Lugger: Gopal Hamilton MD [facility] Date/Time: [facility] Results Received Date/Time: [facility] Reported Date/Time: Performed By: #### 9 68T, 27397Y, %8293, 86334G, 6399, 496X #### [facility] [address] [place] [address] AST [Catalytic activity/Vol] 33 U/L Normal 10-35 [facility] Instructional Facilitator Comment on above: Order Comment: [facility] performed at: [email or web address], [facility], [address] [place] [address], [address] [place] [address], [address] [place] [address], Lugger: Gopal Hamilton MD [facility] Date/Time: [facility] Results Received Date/Time: [facility] Reported Date/Time: Performed By: #### 9 68T, 43859Y, %8293, 60546S, 6399, 496X #### [facility] [address] [place] [address] BUN/CREA 17 NOT APPLICABLE Normal 6-22 [facility] Instructional Facilitator Comment on above: Order Comment: [facility] performed at: [email or web address], [facility], [address], [address] [place] [address], [address] [place] [address], Lugger: Gopal Hamilton MD [facility] Date/Time: [facility] Results Received Date/Time: [facility] Reported Date/Time: Performed By: #### 9 68T, 35274B, %8293, 30408E, 6399, 496X #### [facility] [address] [place] [address] Calcium [Mass/Vol] 9.6 mg/dL Normal 8.6-10.2 [facility] Instructional Facilitator Comment on above: Order Comment: [facility] performed at: [email or web address], [facility], [address], [address] [place] [address], [address] [place] [address], Lugger: Gopal Hamilton MD [facility] Date/Time: [facility] Results Received Date/Time: [facility] Reported Date/Time: Performed By: #### 9 68T, 71865N, %8293, 78128V, 6399, 496X #### [facility] [address] [place] [address] Chloride [Moles/Vol] 103 mmol/L Normal 98-110 [facility] Instructional Facilitator Comment on above: Order Comment: [facility] performed at: [email or web address], [facility], [address], [address] [place] [address], [address] [place] [address], Lugger: Gopal Hamilton MD [facility] Date/Time: [facility] Results Received Date/Time: [facility] Reported Date/Time: Performed By: #### 9 68T, 93775J, %8293, 37797Q, 6399, 496X #### [facility] [address] [place] [address] CO2 [Moles/Vol] 27 mmol/L Normal 20-32 [facility] Specialist Comment on above: Order Comment: [facility] performed at: [email or web address], [facility], [address] [place] [address], [address] [place] [address], [address] [place] [address], Lugger: Gopal Hamilton MD [facility] Date/Time: [facility] Results Received Date/Time: [facility] Reported Date/Time: Performed By: #### 9 68T, 72404F, %8293, 27894U, 6399, 496X #### [facility] [address] [place] [address] Creatinine [Mass/Vol] 0.65 mg/dL Normal 0.50-1.10 [facility] Instructional Facilitator Comment on above: Order Comment: [facility] performed at: [email or web address], [facility], [address] [place] [address], [address] [place] [address], [address] [place] [address], Lugger: Gopal Hamilton MD [facility] Date/Time: [facility] Results Received Date/Time: [facility] Reported Date/Time: Performed By: #### 9 68T, 72267W, %8293, 55614W, 6399, 496X #### [facility] Default [address] [place] [address] eGFRAA (Quest) 121 mL/min/1.73m2 Normal > OR = 60 [facility] Instructional Facilitator Comment on above: Order Comment: Quest Testing performed at: [email or web address], [facility], [address] [place] [address], [address] [place] [address], [address] [place] [address], Lugger: Gopal Hamilton MD [facility] Collection Date/Time: [facility] Results Received Date/Time: [facility] Reported Date/Time: Performed By: #### 9 68T, 69035T, %8293, 68230T, 6399, 496X #### [facility] [address] [place] [address] eGFRNAA ([facility]) 104 mL/min/1.73m2 Normal > OR = 60 No rthern [facility] Instructional Facilitator Comment on above: Order Comment: [facility] Testing performed at: [email or web address], [facility], [address], [address] [place] [address], [address] [place] [address], Lugger: Gopal Hamilton MD [facility] Collection Date/Time: [facility] Results Received Date/Time: [facility] Reported Date/Time: Performed By: #### 9 68T, 23125K, %8293, 48332C, 6399, 496X #### [facility] [address] [place] [address] Globulin (S) [Mass/Vol] 2.5 g/dL Normal 1.9-3.7 [facility] Instructional Facilitator Comment on above: Order Comment: [facility] Testing performed at: [facility], [address], [address] [place] [address], [address] [place] [address], Lugger: Gopal Hamilton MD [facility] Collection Date/Time: [facility] Results Received Date/Time: [facility] Reported Date/Time: Performed By: #### 9 68T, 97655H, %8293, 13549Q, 6399, 496X #### [facility] [address] [place] [address] Glucose [Mass/Vol] 94 mg/dL Normal 65-99 [facility] Instructional Facilitator Comment on above: Order Comment: Quest Testing performed at: [email or web address], [facility], [address], [address] [place] [address], [address] [place] [address], Lugger: Gopal Hamilton MD [facility] Collection Date/Time: [facility] Results Received Date/Time: [facility] Reported Date/Time: Result Comment: Fasting reference interval Performed By: #### 9 68T, 49668S, %8293, 82530O, 6399, 496X #### [facility] [address] [place] [address] Potassium [Moles/Vol] 4.4 mmol/L Normal 3.5-5.3 Venita larson [facility] Instructional Facilitator Comment on above: Order Comment: [facility] Testing performed at: [email or web address], [facility], [address] [place] [address], [address] [place] [address], [address] [place] [address], Lugger: Gopal Hamilton MD [facility] Collection Date/Time: [facility] Results Received Date/Time: [facility] Reported Date/Time: Performed By: #### 9 68T, 98370S, %8293, 91892Z, 6399, 496X #### [facility] [address] [place] [address] Protein [Mass/Vol] 6.8 g/dL Normal 6.1-8.1 Jay gambino [facility] Instructional Facilitator Comment on above: Order Comment: [facility] Testing performed at: [email or web address], [facility], [address] [place] [address], [address] [place] [address], [address] [place] [address], Lugger: Gopal Hamilton MD [facility] Collection Date/Time: [facility] Results Received Date/Time: [facility] Reported Date/Time: Performed By: #### 9 68T, 61875S, %8293, 14139D, 6399, 496X #### [facility] [address] [place] [address] Sodium [Moles/Vol] 138 mmol/L Normal 135-146 Jay gambino [facility] Instructional Facilitator Comment on above: Order Comment: [facility] Testing performed at: [email or web address], [facility], [address], [address] [place] [address], [address] [place] [address], Lugger: Gopal Hamilton MD [facility] Collection Date/Time: [facility] Results Received Date/Time: [facility] Reported Date/Time: Performed By: #### 9 68T, 85128U, %8293, 90738G, 6399, 496X #### [facility] [address] [place] [address] TBIL <0.3 Normal 0.2-1.2 [facility] Instructional Facilitator Comment on above: Order Comment: [facility] Testing performed at: [email or web address], [facility], [address] [place] [address], [address] [place] [address], [address] [place] [address], Lugger: Gopal Hamilton MD [facility] Collection Date/Time: [facility] Results Received Date/Time: [facility] Reported Date/Time: Performed By: #### 9 68T, 50959F, %8293, 01051T, 6399, 496X #### [facility] [address] [place] [address] Urea nitrogen [Mass/Vol] 11 mg/dL Normal 7-25 [place] [facility] Instructional Facilitator Comment on above: Order Comment: [facility] Testing performed at: [email or web address], [facility], [address] [place] [address], [address] [place] [address], [address] [place] [address], Lugger: Gopal Hamilton MD [facility] Collection Date/Time: [facility] Results Received Date/Time: [facility] Reported Date/Time: Performed By: #### 9 68T, 49830C, %8293, 78514D, 6399, 496X #### [facility] [address] [place] [address] Q - DLDL REFLEXon 03-10-2022 Cholesterol in LDL [Mass/Vol] 87 mg/dL Normal <100 [facility] Instructional Facilitator Comment on above: Order Comment: [facility] Testing performed at: [email or web address], [facility], [address] [place] [address], [address] [place] [address], [address], Lugger: Gopal Hamilton MD [facility] Collection Date/Time: [facility] Results Received Date/Time: [facility] Reported Date/Time: Result Comment: Desirable range <100 mg/dL for primary prevention; <70 mg/dL for patients with CHD or diabetic patients with > or = 2 CHD risk factors. Performed By: #### 9 68T, 51170M, %8293, 41908Z, 6399, 496X #### [facility] [address] [place] [address] Q - HEMOGLOBIN A1Con 022 HEMOGLOBIN A1c 5.0 % of total Hgb Normal <5.7 No [facility] Comment on above: Order Comment: [facility] Testing performed at: [facility], [address] [place] [address], [address] [place], [address], Lugger: Gopal Hamilton MD [facility] Collection Date/Time: [facility] [...] diagnosis of diabetes in children. According to [place] Diabetes Association (ADA) guidelines, hemoglobin A1c <7.0% represents optimal control in non- diabetic patients. Different metrics may apply to specific patient populations. Standards of Medical Care in Diabetes(ADA). Performed By: #### 9 68T, 86644V, %8293, 92225S, 6399, 496X #### [facility] [address] [place] [address] Q - Lipid Panelon 03-10-2022 Cholesterol [Mass/Vol] 230 mg/dL High <200 [facility] Instructional Facilitator Comment on above: Order Comment: [facility] Testing performed at: [facility], [address] [place] [address], [address] [place] [address], [address] [place] [address], Lugger: Gopal Hamilton MD [facility] Collection Date/Time: [facility] Results Received Date/Time: [facility] Reported Date/Time: Performed By: #### 9 68T, 22201Y, %8293, 12206Y, 6399, 496X #### [facility] [address] [place] [address] Cholesterol in HDL [Mass/Vol] 52 mg/dL Normal > OR = 50 [place] [facility] Instructional Facilitator Comment on above: Order Comment: [facility] Testing performed at: [email or web address], [facility], [address] [place] [address], [address] [place] [address], [address] [place] [address], Lugger: Gopal Hamilton MD [facility] Collection Date/Time: [facility] Results Received Date/Time: [facility] Reported Date/Time: Performed By: #### 9 68T, 86873X, %8293, 74126E, 6399, 496X #### [facility] [address] [place] [address] Cholesterol.total/Cho lesterol in HDL [Mass ratio] 4.4 {ratio} Normal <5.0 [place] [facility] Instructional Facilitator Comment on above: Order Comment: [facility] Testing performed at: [email or web address], [facility], [address] [place] [address], [address] [place] [address], [address] [place] [address], Lugger: Gopal Hamilton MD [facility] Collection Date/Time: [facility] Results Received Date/Time: [facility] Reported Date/Time: Performed By: #### 9 68T, 20169Z, %8293, 72276M, 6399, 496X #### [facility] [address] [place] [address] LDLD SEE NOTE Normal [place] [facility] Instructional Facilitator Comment on above: Order Comment: [facility] Testing performed at: [email or web address], [facility], [address] [place] [address], [address] [place] [address], [address], Lugger: Gopal Hamilton MD [facility] Collection Date/Time: [facility] [...] LDL-C. Estevan SS et al. ZANA. 2013;310(19): 7181-0348 ([email or web address]://[email or web address]/[email or web address]) Performed By: #### 9 68T, 60995V, %8293, 21061T, 6399, 496X #### [facility] Default [address] [place] [address] NON HDL CHOLESTEROL 178 mg/dL (calc) High <130 [facility] Instructional Facilitator Comment on above: Order Comment: [facility] Testing performed at: [facility], [address] [place] [address], [address], Lugger: Gopal Hamilton MD [facility] Collection Date/Time: [facility] Results Received Date/Time: [facility] Reported Date/Time: Result Comment: For patients with diabetes plus 1 major ASCVD risk factor, treating to a non-HDL-C goal of <100 mg/dL (LDL-C of <70 mg/dL) is considered a therapeutic option. Performed By: #### 9 68T, 14849V, %8293, 35167X, 6399, 496X #### [facility] Default [address] [place] [address] Triglyceride [Mass/Vol] 410 mg/dL High <150 [facility] Instructional Facilitator Comment on above: Order Comment: [facility] Testing performed at: [facility], [address] [place], [place] [address]e Rd, [address] [place], [address], Lugger: Gopal Hamilton MD [facility] Collection Date/Time: [facility] Results Received Date/Time: [facility] Reported Date/Time: Result Comment: If a non-fasting specimen was collected, consider repeat triglyceride testing on a fasting specimen if clinically indicated. João et al. J. of Clin. Lipidol. 2015;9:129-169. Performed By: #### 9 68T, 23937F, %8293, 05084E, 6399, 496X #### [facility] Default [address] [place] [address] Q - TROPONIN Ion 03-10-2022 TROPONIN I 3 ng/L Normal < OR = 47 [facility] Instructional Facilitator Comment on above: Order Comment: [facility] Testing performed at: Q, [facility], [address], [address] [place] [address], [address] [place] [address], Lugger: Gopal Hamilton MD [facility] Collection Date/Time: [facility] Results Received Date/Time: [facility] Reported Date/Time: Result Comment: In accord with published recommendations, serial testing of troponin I at intervals of 2 to 4 hours for up to 12 to 24 hours is suggested in order to corroborate a single troponin I result. An elevated troponin alone is not sufficient to make the diagnosis of DE. Performed By: #### 9 68T, 70152P, %8293, 50826J, 6399, 496X #### [facility] Default [address] [place] [address] UA DIP, URINE (POC)on 2021 BILIRUBIN UA (POCT) Negative Negative [facility] CLARITY UA (POCT) Clear [facility] COLOR UA (POCT) Yellow [facility] GLUCOSE UA (POCT) Negative Negative mg/dL [facility] HEMOGLOBIN/BLOOD UA (POCT) Negative Negative [facility] KETONE UA (POCT) Negative Negative mg/dL [facility] LEUKOCYTES UA (POCT) Negative Negative [facility] NITRITE UA (POCT) Negative Negative [facility] PH UA (POCT) 5.0 4.5 - 8.0 [facility] Protein Ql (U) Trace Abnormal Negative mg/dL [facility] SPECIFIC GRAVITY UA (POCT) >=1.030 1.005 - 1.030 [facility] UROBILINOGEN UA (POCT) 0.2 E.U./dL Normal E.U./dL [facility] CNTHERAPYon 01-31-2022 CNTHERAPY OT/PT/Speech Visit (PTLHO) MARY LEAL ([id number]) 1970 F Date Time Provider Department 01/31/22 10:30 AM NEWTON WOODWARD Date Time Provider Department [place] 01/31/2022 10:30 AM [id number], JILL PTKALEIGH [facility] Reason for Visit: Physical Therapy [503] Primary [...] (FLONASE) 50 mcg/actuation nasal spray Use 1 [place] in each nostril once daily. - carBAMazepine [...] Take 50 mg by mouth once daily. [facility] CNTHERAPYon 01-24-2022 CNTHERAPY OT/PT/Speech Visit (PTLHO) MARY LEAL ([id number]) 1970 F Date Time Provider Department 01/24/22 10:30 AM NEWTON WOODWARD Date Time Provider Department [place] 01/24/2022 10:30 AM [id number] WOODWARD [facility] Reason for Visit: Physical Therapy [503] Primary [...] (FLONASE) 50 mcg/actuation nasal spray Use 1 [place] in each nostril once daily. - carBAMazepine [...] Take 50 mg by mouth once daily. [facility] CNTHERAPYon 01-18-2022 CNTHERAPY OT/PT/Speech Visit (PTLHO) MARY LEAL ([id number]) 1970 F Date Time Provider Department 01/18/22 12:15 PM JESSI ISAACS PTLHO Date Time Provider Department Center 01/18/2022 12:15 PM [id number], KATHRYN [facility] Reason for Visit: PT Angus [747] Primary Visit Diagnosis:Lack of coordination [R27.9] [...] (FLONASE) 50 mcg/actuation nasal spray Use 1 [place] in each nostril once daily. - carBAMazepine [...] by mouth once daily. Letter Text [facility] 12-27-2021 [facility] HNO ID: [id number] Author: Sonido Owen MD Service: Colorectal Author Type: Resident Type: Discharge Summary Filed: 12/27/2021 3:55 PM Note Text: Attestation signed by Mary Obrien MD at 12/29/2021 4:11 PM [facility] STAFF PHYSICIAN NOTE OF PERSONAL [...] the PACU and was transferred to the [facility]. Postoperatively, the patient recovered well. Her [...] 50 mg Finesse (more content not included)... [facility] CONSULTon 12-27-2021 CONSULT HNO ID: [id number] Author: Dai Hines RN Service: Wound/Ostomy Author Type: Registered Nurse Type: Consults Filed: 12/27/2021 3:32 PM Note Text: STOMA CARE POST-OPERATIVE ASSESSMENT AND PATIENT EDUCATION Patient Name: Mary Leal Date: December 27, 2021 Time: 3:20 PM ET Care Outcome: Ms. Leal was seen today on the [facility] for ostomy education and a pouch change lesson. ET's Next Scheduled Visit: Complete. STOMA ASSESSMENT Stoma type: Loop ileostomy Diameter: 35 mm with and extra 1 mm cut on the medial side of the pouch. Location: RLQ Protrusion: Budded, Os points downward Mucosal condition and color: Red and [place] and moist. Boni: No Mucocutaneous Junction: [...] one piece cut to fit drainable pouch (#67135) and Coloplast Brava moldable ring (2mm) #[id number]. Brava barrier strips, product # [id number] applied around the border of the pouch. INCISION Degree of approximation: 100% Approximating devices: Surgical Glue Drainage: None Method of Management: SENIOR MECHANICAL ENGINEER Time Increment: 45 minutes Comments: NA Supplies [...] FROM THE CHART OR MODIFY PRINTED COPY. [facility] NURSING PROGon 12-27-2021 NURSING PROG HNO ID: [id number] Author: Marizol Hankins RN Service: ? Author Type: Registered Nurse Type: Nursing Progress Note Filed: 12/27/2021 4:39 PM Note Text: Nursing Progress Note Patient Name: Mary Leal Patient Location: [place] [address] [address] __ Daily Note: Pt AANDO x 3. Lap site SENIOR MECHANICAL ENGINEER with glue, no drainage. Pt on GI [...] This note was completed by: Marizol Hankins [facility] NUTRITIONon 12-27-2021 NUTRITION HNO ID: [id number] Author: Merced Morales DTR Service: Nutrition Therapy Author Type: Cane Flume Watchman Type: Nutrition Filed: 12/27/2021 12:16 PM Note Text: NUTRITION THERAPY BENEFITS MANAGER NOTE SERVICE DATE: 12/27/2021 SERVICE TIME: 10:00 [...] DATE: December 27, 2021 TIME: 12:15 PM [facility] PT EDon 12-27-2021 PT ED HNO ID: [id number] Author: Merced Morales DTR Service: Nutrition Therapy Author Type: Cane Flume Watchman Type: Patient Education Filed: 12/27/2021 12:16 PM [...] SIGNATURE: Merced Morales DTR PATIENT NAME: Mary Lela DATE: December 27, 2021 TIME: 12:16 PM PAGER: Normal [facility] Basic Metabolic Panlon 12-26 Anion gap [Moles/Vol] 9 mmol/L Normal 9-18 [facility] Comment on above: Performed By: #### B MP #### [place] [id number] Calcium [Mass/Vol] 8.5 mg/dL Normal 8.5-10.5 [facility] Comment on above: Performed By: #### B MP #### [place] [id number] Chloride [Moles/Vol] 102 mmol/L Normal 98-110 [facility] Comment on above: Performed By: #### B MP #### [place] [id number] CO2 [Moles/Vol] 28 mmol/L Normal 23-32 [facility] Comment on above: Performed By: #### B MP #### [place] [id number] Creatinine [Mass/Vol] 0.62 mg/dL Low 0.70-1.40 [facility] Comment on above: Performed By: #### B MP #### [place] [id number] eGFR- Amer. >60 Normal >59 [facility] Comment on above: Performed By: #### B MP #### [place] [id number] eGFR-All Other Races >60 Normal >59 [facility] Comment on above: Result Comment: [...] [email or web address]. Performed By: #### B MP #### [place] [phone] Glucose [Mass/Vol] 71 mg/dL Normal 65-100 [facility] Comment on above: Performed By: #### B MP #### [place] [phone] Potassium [Moles/Vol] 4.0 mmol/L Normal 3.5-5.0 [facility] Comment on above: Performed By: #### B MP #### [phone] Sodium [Moles/Vol] 139 mmol/L Normal 132-148 [facility] Comment on above: Performed By: #### B MP #### [phone] Urea nitrogen [Mass/Vol] 10 mg/dL Normal 8-25 [facility] Comment on above: Performed By: #### B MP #### [place] [phone] NURSING PROGon 12-26-2021 NURSING PROG HNO ID: [id number] Author: Dipti Crowley RN Service: Nursing Author Type: Registered Nurse Type: Nursing Progress Note Filed: 12/26/2021 5:25 PM Note Text: Nursing Progress Note Patient Name: Mary Leal Patient Location: [place] [address] __ Daily Note: Call discontinued as directed in orders. 700cc output from call. 250cc NS instilled and then call catheter removed. Patient assisted to C and voided 200cc pink tinged urine. Patient assisted back to bed, not wanting to go to chair. Call light in reach. This note was completed by: [facility] NURSING PROG HNO ID: [id number] Author: Dipti Crowley, RN Service: Nursing Author Type: Registered Nurse Type: Nursing Progress Note Filed: 12/26/2021 3:51 PM Note Text: Nursing Progress Note Patient Name: Mary Leal Patient Location: [place] [address] [address] __ Daily Note: Patient AANDOx3. VSS. 2L NC POx. IVF infusing as ordered. Dilaudid MEDICAL LAB SCIENTIST, OXY IR on for pain. Patient drowsy yet easily arousable. Lap sites and transverse incision SENIOR MECHANICAL ENGINEER with glue. Ileostomy draining liquid brown. Call draining clear yellow. PAS on. No edema. Fa,saman at bed side. Call light in reach. This note was completed by: Dipti [facility] Basic Metabolic Panlon 12-25 Anion gap [Moles/Vol] 9 mmol/L Normal 9-18 [facility] Comment on above: Performed By: #### B MP #### [facility] [address] [place] [address] Calcium [Mass/Vol] 8.5 mg/dL Normal 8.5-10.5 [facility] Comment on above: Performed By: #### B MP #### [address] [address] Chloride [Moles/Vol] 104 mmol/L Normal 98-110 [facility] Comment on above: Performed By: #### B MP #### [place] [phone] CO2 [Moles/Vol] 28 mmol/L Normal 23-32 [facility] Comment on above: Performed By: #### B MP #### [phone] Creatinine [Mass/Vol] 0.72 mg/dL Normal 0.70-1.40 [facility] Comment on above: Performed By: #### B MP #### [place] [phone] eGFR- Amer. >60 Normal >59 [facility] Comment on above: Performed By: #### B MP #### [place] [phone] eGFR-All Other Races >60 Normal >59 [facility] Comment on above: Result Comment: [...] [email or web address]. Performed By: #### B MP #### [place] [phone] Glucose [Mass/Vol] 91 mg/dL Normal 65-100 [facility] Comment on above: Performed By: #### B MP #### [facility] [address] [place] [address] Potassium [Moles/Vol] 4.0 mmol/L Normal 3.5-5.0 [facility] Comment on above: Performed By: #### B MP #### [place] [address] Sodium [Moles/Vol] 141 mmol/L Normal 132-148 [facility] Comment on above: Performed By: #### B MP #### [place] [phone] Urea nitrogen [Mass/Vol] 12 mg/dL Normal 8-25 [facility] Comment on above: Performed By: #### B MP #### [place] [address] CASE MGT INIT ASSESon 2021 CASE MGT INIT ASS HNO ID: [id number] Author: TITO Whitt Service: ? Author Type: Tea Bag Packer Type: Care Mgt Initial Assessment Filed: 12/25/2021 11:43 AM Note Text: CARE MANAGEMENT: ASSESSMENT AND DISCHARGE PLAN SERVICE DATE: December 25, 2021 SERVICE TIME: 11:39 AM PRIMARY CARE PHYSICIAN: Eliceo Gómez DO ADMISSION STATUS: Inpatient Needs Prior to Discharge: Facility or Agency Choices;Home Care Order MEDICAL: [employer] MEDICAID Patient/Apparel Embroidery Digitizer Stated Goals: To have reduction in symptoms Health Insurance: [facility] Issues Impacting Discharge Plan: None Last Discharge Date: 10/14/20 Is this Within the Past 30 days? Last discharge within 30 days: No Advance Directive: Current Advance Directive: Health Care Power of Photo Mask Cleaner In Chart: No Health LiteracyHow often do [...] None Has the Patient Been in a Retirement Facility in the Past 30 days?: No [...] Completely I feel financially burdened by my qty-rr-lbuhxi expenses for my prescription medication:: 0 - Disagree Completely Risk Score: 0 Patient is categorized as: Low risk < 2 Are you interested in bedside delivery of your medications? Yes Is Patient Psychosocially Complex?: No ASSESSMENT AND PLAN: Medical Needs: Medical Needs: None Psychosocial Needs: Psychosocial Needs: None FREEDOM OF CHOICE EXPLAINED: [place] of Choice Given: Yes Level of Care Discussed: Home Care Financial Disclosure Provided: Yes Financial Disclosure Comments: [facility] Provider List: Home Care Provider list within the patient's requested geographic area shared with the patient/family: Yes within: 15 miles of zip code: [address] Quality and resource use metrics shared with [...] bedside with pt during assessment. Charo Obando [phone]. Home care referrals sent. Daughter to transport at time of discharge. SIGNATURE: TITO Whitt PATIENT NAME: Mary Leal DATE: December 25, 2021 TIME: 11:39 AM PAGER/CONTACT #: [phone] Normal [facility] CBC and Differentialon 12-25 Abs Baso 0.03 k/uL Normal <0.11 [facility] Comment on above: Performed By: #### 5 7021-8 #### [facility] CLIA [id number] [address] [place] [address] [facility] Abs Cedar 0.45 k/uL Normal <0.87 [facility] Comment on above: Performed By: #### 5 7021-8 #### [facility] CLIA [id number] [address] [place] [address] Abs Neut 3.85 k/uL Normal 1.45-7.50 [facility] Comment on above: Performed By: #### 5 7021-8 #### [facility] CLIA [id number] [address] [place] [address] Absolute nRBC <0.01 Normal <0.01 [facility] Comment on above: Performed By: #### 5 7021-8 #### [facility] CLIA [id number] [address] [place] [address] Basophils/100 WBC (Bld) 0.5 % Normal [facility] Comment on above: Performed By: #### 5 7021-8 #### [facility] CLIA [id number] [address] [place] [address] [employer]TYPE Auto Diff Normal [facility] Comment on above: Performed By: #### 5 7021-8 #### [facility] CLIA [id number] [address] [place] [address] OF [employer] Eosinophils (Bld) [#/Vol] 0.14 10*3/uL Normal <0.46 [facility] Comment on above: Performed By: #### 5 7021-8 #### [facility] CLIA [id number] [address] [place] [address] [employer] Eosinophils/100 WBC (Bld) 2.3 % Normal [facility] Comment on above: Performed By: #### 5 7021-8 #### [facility] CLIA [id number] [address] [place] [address] OF [employer] Erythrocyte distribution width (RBC) [Ratio] 11.6 % Normal 11.5-15.0 [facility] Comment on above: Performed By: #### 5 7021-8 #### [facility] CLIA [id number] [address] [place] [address] OF [employer] Hematocrit (Bld) [Volume fraction] 35.2 % Low 36.0-46.0 [facility] Comment on above: Performed By: #### 5 7021-8 #### [facility] CLIA [id number] [address] [place] [address] [place] Hemoglobin (Bld) [Mass/Vol] 11.6 g/dL Normal 11.5-15.5 [facility] Comment on above: Performed By: #### 5 7021-8 #### [facility] CLIA [id number] [address] [place] [address] [place] Lymphocytes (Bld) [#/Vol] 1.47 10*3/uL Normal 1.00-4.00 [facility] Comment on above: Performed By: #### 5 7021-8 #### [facility] CLIA [id number] [address] [place] [address] [place] Lymphocytes/100 WBC (Bld) 24.7 % Normal [facility] Comment on above: Performed By: #### 5 7021-8 #### [facility] CLIA [id number] [address] [place] [address] [place] MCH 29.5 pG Normal 26.0-34.0 [facility] Comment on above: Performed By: #### 5 7021-8 #### [facility] CLIA [id number] [address] [place] [address] [place] MCHC (RBC) [Mass/Vol] 33.0 g/dL Normal 30.5-36.0 [facility] Comment on above: Performed By: #### 5 7021-8 #### [facility] CLIA [id number] [address] [place] [address] [place] MCV (RBC) [Entitic vol] 89.6 fL Normal 80.0-100.0 [facility] Comment on above: Performed By: #### 5 7021-8 #### [facility] CLIA [id number] [address] [place] [address] [place] Monocytes/100 WBC (Bld) 7.6 % Normal [facility] Comment on above: Performed By: #### 5 7021-8 #### [facility] CLIA [id number] [address] [place] [address] [place] Neutrophils/100 WBC (Bld) 64.9 % Normal [facility] Comment on above: Performed By: #### 5 7021-8 #### [facility] CLIA [id number] [address] [place] [address] [place] [employer] NRBCs 0.0 /100 WBC Normal 0 [facility] Comment on above: Performed By: #### 5 7021-8 #### [facility] CLIA [id number] [address] [place] [address] [place] Platelet mean volume (Bld) [Entitic vol] 9.0 fL Normal 9.0-12.7 [facility] Comment on above: Performed By: #### 5 7021-8 #### [facility] CLIA [id number] [address] [place] [address] [place] Platelets (Bld) [#/Vol] 271 10*3/uL Normal 150-400 [facility] Comment on above: Performed By: #### 5 7021-8 #### [facility] CLIA [id number] [address] [place] [address] [place] RBC (Bld) [#/Vol] 3.93 10*6/uL Normal 3.90-5.20 [facility] Comment on above: Performed By: #### 5 7021-8 #### [facility] CLIA [id number] [address] [place] [id number] [place] WBC (Bld) [#/Vol] 5.96 10*3/uL Normal 3.70-11.00 [facility] Comment on above: Performed By: #### 5 7021-8 #### [facility] CLIA [id number] [address] [place] [id number] [place] OF [employer] CONSULTon 12-25-2021 CONSULT HNO ID: [id number] Author: Tri Kowalski APRN.DOOR INSTALLER Service: Wound/Ostomy Author Type: Nurse Practitioner Type: Consults Filed: 12/25/2021 11:37 AM Note Text: OSTOMY SERVICE CONSULT ACCOUNTS PAYABLE MANAGER SERVICE DATE: 12/25/2021 SERVICE TIME: 1015 [...] mL 20 mEq INTRAVENOUS PRN - HYDROmorphone MEDICAL LAB SCIENTIST 0.5 mg/mL in NaCl 0.9% 100 mL [...] with h (more content not included)... Normal [facility] NURSING PROGon 12-25-2021 NURSING PROG HNO ID: [id number] Author: Marilyn Henning, MAKI Service: ? Author Type: Registered Nurse Type: Nursing Progress Note Filed: 12/25/2021 7:01 PM Note Text: Nursing Progress Note Patient Name: Mary Leal [facility] __ Daily Note: 0930 Pt AANDOx3. Lap sites intact. ABD tender. MEDICAL LAB SCIENTIST pump running. Stoma beefy red, dark brown liquid output. Pt stated that the eye pressure felt overnite has resolved. Call remains in place until OBGYN sees pt 12/26. Pt requesting PO pain medication. 1100 Pt up to chair. [address] Ontiveros bedside. 5mg oxy ordered q4 PRN. This note was completed by: Marilyn Henning [facility] NURSING PROG HNO ID: [id number] Author: Beto Ford RN Service: ? Author Type: Registered Nurse Type: Nursing Progress Note Filed: 12/25/2021 6:12 AM Note Text: Nursing Progress Note Patient Name: Mary Leal Patient Location: [place] [address] [address] __ Daily Note: Pt has been complaining [...] This note was completed by: Beto Ford [facility] ANES POSTPROC EVALon 022 ANES POSTPROC EVAL HNO ID: [id number] Author: Charisse Aggarwal MD Service: Anesthesiology Author [...] December 24, 2021 TIME: 4:17 PM CSN: [id number] [facility] ANES PRE-OPon 12-24-2021 ANES PRE-OP HNO ID: [id number] Author: Chayito Ojeda MD Service: Anesthesiology Author [...] December 24, 2021 TIME: 7:27 AM CSN: [id number] [facility] BRIEF OP NOTon 12-24-2021 BRIEF OP NOT HNO ID: [id number] Author: Jenifer Ayala MD Service: Colorectal Author Type: Fellow Type: Brief Op Note Filed: 12/24/2021 12:16 PM Note Text: BRIEF OPERATIVE NOTE - COLORECTAL SURGERY Log ID: [id number] Surgery/Procedure Date: 12/24/2021 Incision/Procedure Start Time: 8:50 AM Incision Close/Procedure End Time: Surgeon(s) and It Training Specialist(s): Surgeon(s) and Role: Panel 1: * [...] DATE: December 24, 2021 TIME: 12:10 PM [facility] NURSING PROGon 12-24-2021 NURSING PROG HNO ID: [id number] Author: Marilyn Henning RN Service: ? Author Type: Registered Nurse Type: Nursing Progress Note Filed: 12/24/2021 6:36 PM Note Text: Nursing Progress Note Patient Name: Mary Leal Patient Location: [place] [address]/WT1T-29 __ Daily Note: 1816 Pt arrived on floor with 100.2F temperature. Scheduled tylenol administered. Temperature 98.6 at 1816. Surgical incisions ELENI with glue, intact. Ostomy beefy red, producing sweat. Call remains in place. Pt Educated on MEDICAL LAB SCIENTIST pump usage. Daughter bedside. Bed low and locked. This note was completed by: Marilyn Henning [facility] NURSING PROG HNO ID: [id number] Author: Marilyn Henning RN Service: ? Author Type: Registered Nurse Type: Nursing Progress Note Filed: 12/24/2021 4:19 PM Note Text: Nursing Progress Note Patient Name: Mary Leal Patient Location: [place] [address]/FY8R-41 __ Transfer Note: Patient transferred into room/unit PK3-33 in stable condition. Actions taken: No futher actions taken at this time. Will continue to monitor and check with patient. This note was completed by: Marilyn Henning [facility] NURSING PROG HNO ID: [id number] Author: Dianelys Lopez RN Service: Nursing Author [...] (RECOMMENDATION): None Electronically Signed By: Dianelys Lopez [facility] OPERATIVE NOon 12-24-2021 OPERATIVE NO HNO ID: [id number] Author: Mary Obrien MD Service: Colorectal Author Type: Physician Type: Operative Report Filed: 12/24/2021 12:34 PM Note Text: COLON AND RECTAL SURGERY OPERATIVE REPORT PATIENT NAME: Mary Leal ADMISSION DATE: 12/24/2021 LOG ID: [id number] SURGERY/PROCEDURE DATE: 12/24/2021 INCISION/PROCEDURE START TIME: 8:50 AM INCISION CLOSE/PROCEDURE END TIME: AGE: [age] year old SEX: female SURGEON(S)/PROCEDURALI ST(S) AND SHOP GIRL(S): Surgeon(s) and Role: Panel 1: * Mary [...] port site. This was ligated with a sargvn-fv-iisba Vicryl suture and was confirmed to be [...] above. Mary Obrien, (more content not included)... [facility] OPERATIVE NO HNO ID: [id number] Author: Pam Wang MD Service: Urogynecology Author Type: Physician Type: Operative Report Filed: 12/28/2021 10:03 AM Note Text: OPERATIVE/PROCEDURE REPORT LOG ID: [id number] SURGERY/PROCEDURE DATE: 12/24/2021 INCISION/PROCEDURE START TIME: 8:50 AM INCISION CLOSE/PROCEDURE END TIME: 1:50 PM SURGEON(S)/PROCEDURALI ST(S) AND SHOP GIRL(S): Surgeon(s) and Role: Panel 1: * Mary [...] of the (more content not included)... Normal [facility] Type and SCR (30D)on 022 ABO/RH(D) Positive Normal [facility] Comment on above: Performed By: #### T SCR30 ####[facility] [place], [place] [phone] Confirm Blood Typeon 021 ABO/RH(D) Positive Normal [facility] Comment on above: Performed By: #### C ONABO ####[facility] [place], [place] [phone] Type and SCR (30D)on 021 ABO/RH(D) Positive Normal [facility] Comment on above: Performed By: #### T SCR30 ####[place] [address] [place], [place] [phone] Nonvisit Note - PTon 021 Nonvisit Note - PT Chart reviewed with eval prepped for scheduled eval. KK [facility] Consenton 01-08-2021 Consent [id number]#1. 00CD:127 [facility] Coding Summary.on 01-06-2021 Coding Summary. CODING DATE: 01/06/2021 FINAL [facility] STATUS: Home [...] Date Saved: 01/06/2021 09:01 am [facility] Consent for Procedure/Surger yon 01-04-2021 Consent for Procedure/Surgery [id number]#1. 00CD:127 [facility] Consent for Procedure/Surgery [id number]#1. 00CD:127 [facility] Consent for Treatmenton Consent for Treatment [id number]#1.0 0CD:127 [facility] Discharge Instructionson Discharge Instructions [id number]#1. 00CD:127 Normal [facility] Inpatient Patient Summaryon 01-04-2021 Inpatient Patient Summary [address] [address] Clinical Summary Person Information Name: MARY LEAL Age: 50 Years : 1970 Sex: Female PCP: Isatu GÓMEZ DO Marital Status: Race: White Ethnicity: Non- or Language: Tunisian Visit Id: Visit Reason: MIXED INCONTINENCE Speciality: Acuity: Enc Type: Outpatient Med Service: Surgery Arrival: 01/04/2021 12:31:00 Discharge: Dispo Type: Address: [address] [place] [phone] Provider Notes: Diagnosis: Problems Active Decreased bladder [...] This Visit Final Med List: acetaminophen-hydrocod one (Clark 5/325 Tab) By Mouth every 6 hours. [...] up: With: Address: When: Clifford OCONNOR [address] [facility], [address], [place] [phone] Business (1) Within 2 weeks Comments: Call for followup appointment. Have a great day! Patient Education Information: EU - Cystoscopy with Botox Injection Discharge Instructions (Custom) [facility] IntraOperative Documentson 0 01-04-2021 IntraOperative Documents [id number]#1. 00CD:127 [facility] IntraOperative Documents [id number]#1. 00CD:127 [facility] Main OR Intraoperative Recor don 01-04-2021 Main OR Intraoperative Record IntraOp Document Type FTURO Summary Primary Physician: Clifford OCONNOR MD Finalized Date/Time: 01/04/21 13:27:05 Pt. Name: ELVISMARY/Sex: 1970 Female Med Rec #: [id number] Physician: Clifford OCONNOR MD Financial #: [id number] Pt. Type: O Room/Bed: / Admit/Disch: 01/04/21 12:31:00 - Institution: Case Times FTURO Entry 1 Patient Times In Room 01/04/21 13:07:00 Out Room 01/04/21 13:27:00 Procedure Times Start 01/04/21 13:19:00 Stop 01/04/21 13:23:00 Anesthesia Times Last Modified By: Niecy Tran RN 01/04/21 13:27:01 Case Attendance FTURO Entry 1 Entry 2 Entry 3 Case Attendee Clifford OCONNOR MD HARDWARE ENGINEER, Akin Mejias CST, Debi C Role Performed Surgeon - Primary Scrub - [...] Case Attendee Niecy Tran RN Role Performed Dramatic Arts Historian - Primary Time In 01/04/21 13:07:00 Time Out 01/04/21 13:27:00 Procedure CYSTOSCOPY LOCAL BOTOX INJECTION(.) Comments Last Modified By: Niecy Tran RN 01/04/21 13:27:02 Surgical Procedures FTURO Entry 1 Procedure Description Procedure CYSTOSCOPY LOCAL BOTOX Modifiers . INJECTION Surgeon Description CYSTOSCOPY BOTOX 50 UNITS LOT NUMBER [id number] EXP DATE 08/2023 Primary Procedure Yes Primary [...] By: Niecy Tran RN 01/04/21 13:27 Normal [facility] Main OR Preoperative Recordo n 01-04-2021 Main OR Preoperative Record Holding Area Document Type FTURO Summary Primary Physician: Clifford OCONNOR MD Finalized Date/Time: 01/04/21 13:05:55 Pt. Name: MARY LEAL/Sex: 1970 Female Med Rec #: [id number] Physician: Clifford OCONNOR MD Financial #: [id number] Pt. Type: O Room/Bed: / Admit/Disch: 01/04/21 [...] 12:46 Niecy Tran RN 01/04/21 13:05 Normal [facility] Operative Reporton Operative Report Patient: MARY [...] arranged, F/U in two weeks. . Normal [facility] Comment on above: Result Comment: Elec tronically Signed By: Clifford OCONNOR MD\.br\Date and Time Signed: 01/04/21 13:30 EST Outpatient Surgery Discharge Instructionon 01-04-2021 Outpatient Surgery Discharge Instruction [address] [address] Patient Discharge Instructions PERSON INFORMATION Name: MARY LEAL Date of : 1970 Current Date: 01/04/2021 13:25:41 PHYSICIANS Admitting Physician: COOK MD, Clifford P Comment: Discharge Diagnosis: MARY LEAL has been given the following list of follow-up instructions, prescriptions, and patient education materials: IF UNABLE TO CONTACT YOUR PHYSICIAN AND YOU FEEL IT IS AN EMERGENCY, GO TO THE NEAREST EMERGENCY ROOM OR CALL 911 Follow up: With: Address: When: Clifford [address], [address], [place] [phone] [facility] (1) Within 2 weeks Comments: Call [...] to serve you. Thank you for choosing [facility] Normal [facility] XR Shoulder - right 3 Viewso n 12-25-2020 IMPRESSION: NO SIGNIFICANT CHANGE Flamer After Lasting: CAPRI Transcribe Date/Time: Dec 25 2020 12:18P Dictated by : AWA LOPEZ MD This examination was interpreted and the report reviewed and electronically signed by: AWA LOPEZ MD on Dec 25 2020 12:21PM [facility] DIVISION OF RADIOLOGY * * *Final [...] abnormality. - IMPRESSION IMPRESSION: NO SIGNIFICANT CHANGE Flamer After Lasting: CAPRI Transcribe Date/Time: Dec 25 2020 12:18P Dictated by : AWA LOPEZ MD This examination was interpreted and the report reviewed and electronically signed by: AWA LOPEZ MD on Dec 25 2020 12:21PM EST [facility] Radiology Study observation (narrative) [facility] XR Shoulder - right 3 ViewsO rdered By: Ccf Provider on 12-25-2020 [facility] PT - Assessmentson 1 PT - Assessments [id number]#1. 00CD:127 Normal [facility] Ambulatory Clinical Summaryo n 11-11-2020 Ambulatory Clinical Summary {2f-92-90-5o-46-aj-4d- fy-22-07-4z-69-40-b3-c 9-f1}CD:[id number] Normal [facility] Patient Educationon 11-11-19 21 Patient Education [...] your urinary (more content not included)... Normal [facility] Urology Phone Visit- Telehea [facility] 11-03-2020 Urology Phone Visit- Telehealth HPI Staff [...] with the patient located at [facility] [phone] , with no one else. If it [...] BENSON, Dawna Feldman [address] [place] [phone] Additional Instructions: Patient Education Urodynamic Testing Overactive [...] stream His (more content not included)... Normal [facility] Comment on above: Result Comment: Elec tronically Signed By: Francie BENSON, Dawna Feldman\.br\Date and Time Signed: 11/03/20 11:59 EST\.br\Electronically Co-Signed By: Christy Gill MA\.br\Date and Time Co-Signed: 10/21/20 12:01 EST Coding Summary.on 10-28-2020 Coding Summary. CODING DATE: 10/28/2020 FINAL [facility] STATUS: Home [...] Scott Date Saved: 10/28/2020 11:17 am Normal [facility] Ambulatory Clinical Summaryo n 10-27-2020 Ambulatory Clinical Summary {62-45-4c-60-18-83-44- y8-iq-t1-d5-69-75-26-c 6-e5}CD:[id number] Normal [facility] Consent for Procedure/Surger yon 10-27-2020 Consent for Procedure/Surgery [id number] .00CD:127 Normal [facility] Consent for Treatmenton 10-07 Consent for Treatment [id number]#1.0 0CD:127 [facility] IntraOperative Documentson 1 12-28-2019 IntraOperative Documents [id number] .00CD:127 [facility] Patient Educationon 10-21-20 Patient Education Family [...] or depar (more content not included)... Normal [facility] XR Shoulder - right 3 Viewso n 09-29-2020 IMPRESSION: No acute osseous findings. Flamer After Lasting: CAPRI Transcribe Date/Time: Sep 29 2020 8:37A Dictated by : FLORENCE TORRES MD This examination was interpreted and the report reviewed and electronically signed by: FLORENCE TORRES MD on Sep 29 2020 8:38AM [facility] DIVISION OF RADIOLOG[facility] * * *Final [...] other significant abnormality. DIVISION OF RADIOLOGY [facility] * * *Final Report* [...] abnormality. IMPRESSION IMPRESSION: No acute osseous findings. Flamer After Lasting: PSCB Transcribe Date/Time: Sep 29 2020 8:37A Dictated by : FLORENCE TORRES MD This examination was interpreted and the report reviewed and electronically signed by: FLORENCE TORRES MD on Sep 29 2020 8:38AM EST [facility] Radiology Study observation (narrative) [facility] XR Shoulder - right 3 ViewsO rdered By: Ccf Provider on 09-29-2020 [facility] PT - Assessmentson 0 PT - Assessments [id number]#1. 00CD:127 Normal [facility] Nonvisit Note - PTon 020 Nonvisit Note - PT Per voicemail: she needs to cancel all of her PT due to personal reasons. KK Normal [facility] Provider Letteron 09-09-2020 Provider Letter September 09, 2020 MARY LEAL [address] [place] [address] MARY LEAL 1970 Dear Mary Leal, You [...] appreciate your understanding. Sincerely, [facility] [address], [place] [address] [facility] PT - Assessmentson 0 PT - Assessments [id number]#1. 00CD:127 [facility] PT - Assessments [id number]#1. 00CD:127 [facility] PT - Assessmentson 0 PT - Assessments [id number]#1. 00CD:127 [facility] PT - Consentson 08-31-2020 PT - Consents [id number]#1. 00CD:127 [facility] Pre-Certification Formon Pre-Certification Form [id number]#1.0 0CD:127 [facility] Pre-Certification Form [id number]#1.0 0CD:127 [facility] Consent for Procedure/Surger yon 08-26-2020 Consent for Procedure/Surgery [id number] 0CD:127 [facility] Ambulatory Clinical Summaryo n 08-25-2020 Ambulatory Clinical Summary {hh-6d-5d-34-75-d1-40- 4u-33-xn-5k-14-29-e1-7 d-25}CD:[id number] [facility] Patient Education 08-25-20 Patient Education Family Medicine Interstitial Cystitis [...] an extended amount of time. Only take xjjq-nux-lihqpcz or prescription medicines for pain, discomfort, or [...] Document Reviewed: 09/07/2009 ExitCare? Patient Information ?2013 [employer]. [facility] Urology Office/Clinic Noteon 08-25-2020 Urology Office/Clinic [...] Alzheimer's disease: Mother. Hypertension: Mother and Father. [facility] Comment on above: Result Comment: Elec tronically Signed By: Dawna Marmolejo MD\.br\Date and Time Signed: 08/25/20 10:06 EDT\.br\Electronically Co-Signed By: Mary Hager\.br\Date and Time Co-Signed: 08/25/20 09:51 EDT Coding Summary.on 08-21-2020 Coding Summary. CODING DATE: 08/21/2020 FINAL [facility] STATUS: PAYOR: [...] Date Saved: 08/21/2020 10:42 am [facility] Consenton 08-21-2020 Consent [id number]#1.0 0CD:127 [facility] Ambulatory Clinical Summaryo n 08-19-2020 Ambulatory Clinical Summary {c7-hi-77-y1-4v-5x-47- 89-01-55-88-4f-p7-d1-c }CD:[id number] [facility] Ambulatory Clinical Summary {11-5s-40-9a-9d-9p-4f- 31-d9-18-39-37-82-b0-0 d-3c}CD:[id number] [facility] Nonvisit Note - PTon 020 Nonvisit Note - PT Chart reviewed for scheduled eval. KK Normal [facility] Patient Educationon 08-19-20 20 Patient Education [...] not included)... Normal [facility] Urology Phone Visit- Telehea [facility] 08-19-2020 Urology Phone Visit- Telehealth Chief Complaint [...] with the patient located at [facility] [phone], with no one else. If it is [...] Will order Local anesthesia. ABX sent to [facility]. Ordered: [facility] External [...] Patient who (more content not included)... Normal [facility] Comment on above: Result Comment: Elec tronically Signed By: Dawna Marmolejo MD\.br\Date and Time Signed: 08/19/20 08:53 EDT\.br\Electronically Co-Signed By: Christy Gill MA\.br\Date and Time Co-Signed: 08/19/20 08:44 EDT Coding Summary.on 08-12-2020 Coding Summary. CODING DATE: 08/12/2020 FINAL [facility] STATUS: Home [...] Date Saved: 08/12/2020 09:42 am [facility] Formson 08-11-2020 Forms [id number]#1.0 0CD:127 [facility] C Urineon 08-09-2020 Bacteria identified Cx Nom (U) Microbiology PROCEDURE: Urine Culture [R1] SOURCE: U Random BODY SITE: COLLECTED DATE/TIME: 08/07/2020 15:46 EDT RECEIVED DATE/TIME: 08/07/2020 17:10 EDT START DATE/TIME: 08/07/2020 17:10 EDT FREE TEXT SOURCE: Dawna Marmolejo MD D. Francie BENSON, Dawna Keys. FINAL REPORTS Final Report [] Verified Date/Time: 08/09/2020 11:56 EDT 500 cfu/ml Mixed skin contaminants Performing Locations R1: This test was performed at: [facility], [address] [place] [address], [phone] , [place], Normal [facility] Comment on above: Performed By: #### 2 [id number] ####[facility] [id number] [place] [id number] Ambulatory Clinical Summaryo n 08-07-2020 Ambulatory Clinical Summary {3s-h8-07-zq-56-11-4a- 47-27-jk-77-23-5u-ba-8 4-a2}CD:[id number] Normal [facility] Patient Educationon 08-07-20 20 Patient Education [...] Document Reviewed: 07/18/2013 ExitCare? Patient Information ?2013 [employer] [facility]. [facility] Medicine Overactive Bladder, Adult The bladder [...] bladder, your (more content not included)... Normal [facility] Urology Office/Clinic Noteon 08-07-2020 Urology Office/Clinic [...] setting of nocturia q2hrs and daytime frequency j2zuvmb with painful post void bladder sensation of [...] [address] (more content not included)... Normal [facility] Comment on above: Result Comment: Elec tronically Signed By: Dawna Marmolejo MD\.br\Date and Time Signed: 08/07/20 15:54 EDT\.br\Electronically Co-Signed By: Radha Lopez MA.br\Date and Time Co-Signed: 08/07/20 15:44 EDT Vital Signs Date Time Vital Sign Value Performing Clinician Facility 11-12-2024 08:27-0500 Body mass index (BMI) [Ratio] 26.61 kg/m2 Dipti Acevedo DO Work Phone: [facility] 11-12-2024 08:27-0500 Body weight 70.31 kg Dipti Acevedo DO Work Phone: [facility] 11-12-2024 08:27-0500 Diastolic blood pressure 84 mm[Hg] Dipti Acevedo DO Work Phone: [facility] 11-12-2024 08:27-0500 Systolic blood pressure 122 mm[Hg] Dipti Acevedo DO Work Phone: [facility] 10-24-2024 09:20-0500 Diastolic blood pressure 70 mm[Hg] Shannon Gómez DO Work Phone: [facility] 10-24-2024 09:20-0500 Heart rate 68 /min Shannon Szymanskileigha DO Work Phone: [facility] 10-24-2024 09:20-0500 Respiratory rate 16 /min Shannon Ngtomasa DO Work Phone: [facility] 10-24-2024 09:20-0500 SaO2% (BldA) [Mass fraction] 100 % Shannon Gómez DO Work Phone: [facility] 10-24-2024 09:20-0500 Systolic blood pressure 109 mm[Hg] Shannon Szymanskileigha DO Work Phone: [facility] 10-24-2024 08:30-0500 Body temperature 98 [degF] Shannon Szymanskileigha DO Work Phone: [facility] 10-24-2024 08:03-0500 Inhaled oxygen flow rate 8 L/min Shannon Szymanskileigha DO Work Phone: [facility] 10-24-2024 06:36-0500 Body height 162.56 cm Shannon Szymanskileigha DO Work Phone: [facility] 10-24-2024 06:36-0500 Body weight 69.39 kg GReno Gómez DO Work Phone: [facility] 10-23-2024 10:43-0500 Body height 162.6 cm Radha Cardenas MD Work Phone: [facility] 10-23-2024 10:43-0500 Body mass index (BMI) [Ratio] 26.26 kg/m2 Radha Cardenas MD Work Phone: [facility] 10-23-2024 10:43-0500 Body weight 69.4 kg Radha Cardenas MD Work Phone: [facility] 10-23-2024 10:43-0500 Diastolic blood pressure 80 mm[Hg] Radha Cardenas MD Work Phone: [facility] 10-23-2024 10:43-0500 Heart rate 68 /min Radha Cardenas MD Work Phone: [facility] 10-23-2024 10:43-0500 SaO2% (BldA) [Mass fraction] 98 % Radha Cardenas MD Work Phone: [facility] 10-23-2024 10:43-0500 Systolic blood pressure 112 mm[Hg] Radha Cardenas MD Work Phone: [facility] 10-15-2024 15:04-0500 Body mass index (BMI) [Ratio] 26.61 kg/m2 Dipti Acevedo DO Work Phone: [facility] 10-15-2024 15:04-0500 Body weight 70.31 kg Dipti Acevedo DO Work Phone: [facility] 10-15-2024 15:04-0500 Diastolic blood pressure 68 mm[Hg] Dipti Acevedo DO Work Phone: [facility] 10-15-2024 15:04-0500 Systolic blood pressure 108 mm[Hg] Dipti Acevedo DO Work Phone: [facility] 10-14-2024 08:26-0500 Body height 162.56 cm G. Parish Gómez DO Work Phone: [facility] 10-14-2024 08:26-0500 Body mass index (BMI) [Ratio] 26.2 kg/m2 GReno Gómez DO Work Phone: [facility] 10-14-2024 08:26-0500 Body weight 69.39 kg G. Parish Gómez DO Work Phone: [facility] 09-26-2024 16:19-0500 Body height 162.6 cm Ron King [employer] Work Phone: [facility] 09-26-2024 16:19-0500 Body mass index (BMI) [Ratio] 26.64 kg/m2 Ron King [employer]PER[employer] Work Phone: [facility] 09-26-2024 16:19-0500 Body temperature 97.5 [degF] Ron King [employer]PER[employer] Work Phone: [facility] 09-26-2024 16:19-0500 Body weight 70.4 kg Ron Benedicty [employer] SUPER[employer]OR Work Phone: [facility] 09-26-2024 16:19-0500 Diastolic blood pressure 90 mm[Hg] Ron Benedicty [employer] SUPER[employer]OR Work Phone: [facility] 09-26-2024 16:19-0500 Heart rate 85 /min Ron King [employer] SUPER[employer]OR Work Phone: [facility] 09-26-2024 16:19-0500 SaO2% (BldA) [Mass fraction] 99 % Ron Benedicty [employer] SUPER[employer]OR Work Phone: [facility] 09-26-2024 16:19-0500 Systolic blood pressure 142 mm[Hg] Ron Benedicty [employer] SUPER[employer] Work Phone: [facility] 09-16-2024 14:56-0500 Body height 162.56 cm [facility] 09-16-2024 14:56-0500 Body mass index (BMI) [Ratio] 25.5 kg/m2 [facility] 09-16-2024 14:56-0500 Body weight 67.58 kg [facility] 09-04-2024 14:30-0400 Body height 162.6 cm Ron King [employer] SUPER[employer]OR Work Phone: [facility] 09-04-2024 14:30-0400 Body mass index (BMI) [Ratio] 25.58 kg/m2 Ron Benedicty [employer] SUPER[employer]OR Work Phone: [facility] 09-04-2024 14:30-0400 Body temperature 97.5 [degF] Ron Benedicty [employer] SUPER[employer]OR Work Phone: [facility] 09-04-2024 14:30-0400 Body weight 67.59 kg Ron Benedicty [employer] SUPERVISOR Work Phone: [facility] 09-04-2024 14:30-0400 Diastolic blood pressure 76 mm[Hg] Ron Benedicty [employer] SUPER[employer]OR Work Phone: [facility] 09-04-2024 14:30-0400 Heart rate 55 /min Ron Benedicty [employer] SUPER[employer]OR Work Phone: [facility] 09-04-2024 14:30-0400 SaO2% (BldA) [Mass fraction] 99 % Ron Benedicty [employer] SUPER[employer]OR Work Phone: [facility] 09-04-2024 14:30-0400 Systolic blood pressure 110 mm[Hg] Ron Benedicty [employer] SUPER[employer]OR Work Phone: [facility] 08-07-2024 09:12-0400 Body height 162.6 cm Radha Cardenas MD Work Phone: [facility] 08-07-2024 09:12-0400 Body mass index (BMI) [Ratio] 26.43 kg/m2 Radha Cardenas MD Work Phone: [facility] 08-07-2024 09:12-0400 Body temperature 97.3 [degF] Radha Cardenas MD Work Phone: [facility] 08-07-2024 09:12-0400 Body weight 69.85 kg Radha Cardenas MD Work Phone: [facility] 08-07-2024 09:12-0400 Diastolic blood pressure 82 mm[Hg] Radha Cardenas MD Work Phone: [facility] 08-07-2024 09:12-0400 Heart rate 68 /min Radha Cardenas MD Work Phone: [facility] 08-07-2024 09:12-0400 SaO2% (BldA) [Mass fraction] 100 % Radha Cardenas MD Work Phone: [facility] 08-07-2024 09:12-0400 Systolic blood pressure 120 mm[Hg] Radha Cardenas MD Work Phone: [facility] 08-01-2024 15:22-0400 Body height 162.6 cm Eliceo Gómez DO Work Phone: [facility] 08-01-2024 15:22-0400 Body mass index (BMI) [Ratio] 25.73 kg/m2 Eliceo Gómez DO Work Phone: [facility] 08-01-2024 15:22-0400 Body temperature 96.8 [degF] Eliceo Gómez DO Work Phone: [facility] 08-01-2024 15:22-0400 Body weight 68 kg Eliceo Gómez DO Work Phone: [facility] 08-01-2024 15:22-0400 Diastolic blood pressure 60 mm[Hg] Eliceo Gómez DO Work Phone: [facility] 08-01-2024 15:22-0400 Heart rate 98 /min Eliceo Gómez DO Work Phone: [facility] 08-01-2024 15:22-0400 SaO2% (BldA) [Mass fraction] 99 % Eliceo Gómez DO Work Phone: [facility] 08-01-2024 15:22-0400 Systolic blood pressure 122 mm[Hg] Eliceo Gómez DO Work Phone: [facility] 07-11-2024 09:44-0400 Body height 162.6 cm Eliceo Gómez DO Work Phone: [facility] 07-11-2024 09:44-0400 Body mass index (BMI) [Ratio] 26.09 kg/m2 Eliceo Gómez DO Work Phone: [facility] 07-11-2024 09:44-0400 Body temperature 97.11 [degF] Eliceo Gómez DO Work Phone: [facility] 07-11-2024 09:44-0400 Body weight 68.95 kg Eliceo Gómez DO Work Phone: [facility] 07-11-2024 09:44-0400 Diastolic blood pressure 64 mm[Hg] Eliceo Gómez DO Work Phone: [facility] 07-11-2024 09:44-0400 Heart rate 86 /min Eliceo Gómez DO Work Phone: [facility] 07-11-2024 09:44-0400 SaO2% (BldA) [Mass fraction] 97 % Eliceo Gómez DO Work Phone: [facility] 07-11-2024 09:44-0400 Systolic blood pressure 108 mm[Hg] Eliceo Gómez DO Work Phone: [facility] 04-12-2024 13:10-0400 Diastolic blood pressure 75 mm[Hg] Milagros Franco MD, PhD Work Phone: [facility] 04-12-2024 13:10-0400 Heart rate 62 /min Milagros Franco MD, PhD Work Phone: [facility] 04-12-2024 13:10-0400 Respiratory rate 20 /min Milagros Franco MD, PhD Work Phone: [facility] 04-12-2024 13:10-0400 SaO2% (BldA) [Mass fraction] 100 % Milagros Franco MD, PhD Work Phone: [facility] 04-12-2024 13:10-0400 Systolic blood pressure 121 mm[Hg] Milagros Franco MD, PhD Work Phone: [facility] 04-12-2024 11:35-0400 Body height 162.6 cm Milagros Franco MD, PhD Work Phone: [facility] 04-12-2024 11:35-0400 Body mass index (BMI) [Ratio] 25.75 kg/m2 Milagros Franco MD, PhD Work Phone: [facility] 04-12-2024 11:35-0400 Body temperature 97.9 [degF] Milagros Franco MD, PhD Work Phone: [facility] 04-12-2024 11:35-0400 Body weight 68.04 kg Milagros Franco MD, PhD Work Phone: [facility] 02-27-2024 09:48-0400 Body height 162.6 cm Flower Jessica ACCOUNTS PAYABLE MANAGER.DOOR INSTALLER Work Phone: [facility] 02-27-2024 09:48-0400 Body mass index (BMI) [Ratio] 26.45 kg/m2 Flower Jessica ACCOUNTS PAYABLE MANAGER.DOOR INSTALLER Work Phone: [facility] 02-27-2024 09:48-0400 Body weight 69.9 kg Flower Jessica ACCOUNTS PAYABLE MANAGER.DOOR INSTALLER Work Phone: [facility] 02-27-2024 09:48-0400 Diastolic blood pressure 93 mm[Hg] Flower Jessica ACCOUNTS PAYABLE MANAGER.DOOR INSTALLER Work Phone: [facility] 02-27-2024 09:48-0400 Heart rate 62 /min Flower Jessica ACCOUNTS PAYABLE MANAGER.DOOR INSTALLER Work Phone: [facility] 02-27-2024 09:48-0400 Systolic blood pressure 146 mm[Hg] Flower Jessica ACCOUNTS PAYABLE MANAGER.DOOR INSTALLER Work Phone: [facility] 01-25-2024 09:05-0400 Body height 162.6 cm [employer] Work Phone: [facility] 01-25-2024 09:05-0400 Body weight 68.04 kg [employer] Work Phone: [facility] 01-25-2024 09:05-0400 Heart rate 84 /min [employer] Work Phone: [facility] 01-25-2024 09:05-0400 Respiratory rate 16 /min [employer] Work Phone: [facility] 01-10-2024 12:40-0500 Body height 162.6 cm Cullen Dawkins MD Work Phone: [facility] 01-10-2024 12:40-0500 Body mass index (BMI) [Ratio] 27.89 kg/m2 Cullen Dawkins MD Work Phone: [facility] 01-10-2024 12:40-0500 Body weight 73.7 kg Cullen Dawkins MD Work Phone: [facility] 12-20-2023 12:21-0500 Body height 162.6 cm [facility] 12-20-2023 12:21-0500 Body mass index (BMI) [Ratio] 28.38 kg/m2 [facility] 12-20-2023 12:21-0500 Body temperature 98.2 [degF] [facility] 12-20-2023 12:21-0500 Body weight 75 kg [facility] 12-20-2023 12:21-0500 Diastolic blood pressure 90 mm[Hg] [facility] 12-20-2023 12:21-0500 Heart rate 72 /min [facility] 12-20-2023 12:21-0500 Respiratory rate 18 /min [facility] 12-20-2023 12:21-0500 SaO2% (BldA) [Mass fraction] 96 % [facility] 12-20-2023 12:21-0500 Systolic blood pressure 138 mm[Hg] [facility] 11-23-2023 08:14-0500 Body height 162.56 cm DO Shannon Gómez Work Phone: [facility] 11-23-2023 08:14-0500 Body weight 70.3 kg DO Shannon Gómez Work Phone: [facility] 08-12-2023 07:08-0400 Diastolic blood pressure 65 mm[Hg] Lex Salmon MD Work Phone: [facility] 08-12-2023 07:08-0400 Heart rate 77 /min Lex Salmon MD Work Phone: [facility] 08-12-2023 07:08-0400 SaO2% (BldA) [Mass fraction] 98 % Lex Salmon MD Work Phone: [facility] 08-12-2023 07:08-0400 Systolic blood pressure 132 mm[Hg] Lex Salmon MD Work Phone: [facility] 08-12-2023 06:48-0400 Respiratory rate 13 /min Lex Salmon MD Work Phone: [facility] 08-12-2023 00:25-0400 Body height 162.6 cm Lex Salmon MD Work Phone: [facility] 08-12-2023 00:25-0400 Body mass index (BMI) [Ratio] 28.01 kg/m2 Lex Salmon MD Work Phone: [facility] 08-12-2023 00:25-0400 Body temperature 97.59 [degF] Lex Salmon MD Work Phone: [facility] 08-12-2023 00:25-0400 Body weight 74.03 kg Lex Salmon MD Work Phone: [facility] 07-31-2023 14:27-0400 Body height 162.6 cm Nelsy Chávez ACCOUNTS PAYABLE MANAGER.DOOR INSTALLER Work Phone: [facility] 07-31-2023 14:27-0400 Body weight 69.85 kg Nelsy Chávez ACCOUNTS PAYABLE MANAGER.DOOR INSTALLER Work Phone: [facility] 07-31-2023 14:27-0400 Diastolic blood pressure 96 mm[Hg] Nelsy Chávez ACCOUNTS PAYABLE MANAGER.DOOR INSTALLER Work Phone: [facility] 07-31-2023 14:27-0400 Heart rate 76 /min Nelsy Chávez ACCOUNTS PAYABLE MANAGER.DOOR INSTALLER Work Phone: [facility] 07-31-2023 14:27-0400 Systolic blood pressure 136 mm[Hg] Nelsy Chávez ACCOUNTS PAYABLE MANAGER.DOOR INSTALLER Work Phone: [facility] 06-13-2023 10:37-0400 Body height 162.56 cm Eliceo Gómez Work Phone: [facility] DO Work Phone: 06-13-2023 10:37-0400 Body mass index (BMI) [Ratio] 27.46 kg/m2 Eliceo Gómez Work Phone: [facility] DO Work Phone: 06-13-2023 10:37-0400 Body surface area Derived from formula 1.78 m2 Eliceo Gómez Work Phone: [facility] DO Work Phone: 06-13-2023 10:37-0400 Body weight 72.58 kg Eliceo Gómez Work Phone: [facility] DO Work Phone: 06-13-2023 10:37-0400 Diastolic blood pressure 70 mm[Hg] Eliceo Gómez Work Phone: [facility] DO Work Phone: 06-13-2023 10:37-0400 Heart rate 70 /min Eliceo Gómez Work Phone: [facility] DO Work Phone: 06-13-2023 10:37-0400 Systolic blood pressure 100 mm[Hg] Eliceo Gómez Work Phone: [facility] DO Work Phone: 06-13-2023 10:37-0400 11 1 Eliceo Gómez Work Phone: [facility] DO Work Phone: Comment on above: PHQ-9 TS 06-05-2023 13:23-0400 Diastolic blood pressure 68 mm[Hg] DO Shannon Gómez Work Phone: [facility] 06-05-2023 13:23-0400 Heart rate 72 /min DO Shannon Gómez Work Phone: [facility] 06-05-2023 13:23-0400 Respiratory rate 18 /min DO Shannon Gómez Work Phone: [facility] 06-05-2023 13:23-0400 SaO2% (BldA) [Mass fraction] 97 % DO Shannon Gómez Work Phone: [facility] 06-05-2023 13:23-0400 Systolic blood pressure 129 mm[Hg] DO Shannon Gómez Work Phone: [facility] 06-05-2023 09:32-0400 Body height 162.56 cm DO Shannon Gómez Work Phone: [facility] 06-05-2023 09:32-0400 Body weight 73.9 kg DO Shannon Gómez Work Phone: [facility] 06-05-2023 09:31-0400 Body temperature 97.5 [degF] DO Shannon Gómez Work Phone: [facility] 01-16-2023 13:18-0400 Body height 162.6 cm [facility] 01-16-2023 13:18-0400 Body weight 68.04 kg [facility] 11-21-2022 08:00-0500 Body height 162.6 cm [facility] Work Phone: [facility] 11-21-2022 08:00-0500 Body weight 64.86 kg [facility] 2 Work Phone: [facility] 10-11-2022 10:08-0500 Body height 162.6 cm Isra Masters DO Work Phone: [facility] 10-11-2022 10:08-0500 Body weight 78.02 kg Isra Galarzae DO Work Phone: [facility] 10-11-2022 10:08-0500 Diastolic blood pressure 97 mm[Hg] Isra Masters DO Work Phone: [facility] 10-11-2022 10:08-0500 Heart rate 89 /min Isra Galarzae DO Work Phone: [facility] 10-11-2022 10:08-0500 Systolic blood pressure 141 mm[Hg] Isra Masters DO Work Phone: [facility] 10-10-2022 14:30-0500 Body height 162.56 cm Beto Olexa Other [employer] [facility] [employer] Other 10-10-2022 14:30-0500 Body mass index (BMI) [Ratio] 28.66 kg/m2 Beto Olexa Other [employer] [facility] Other 10-10-2022 14:30-0500 Body weight 75.75 kg Beto Olexa Other [employer] [facility] Other 07-26-2022 11:13-0400 Body height 162.6 cm Mary Obrien MD Work Phone: [facility] 07-26-2022 11:13-0400 Body temperature 97.5 [degF] Mary Obrien MD Work Phone: [facility] 07-26-2022 11:13-0400 Body weight 77.56 kg Mary Obrien MD Work Phone: [facility] 07-26-2022 11:13-0400 Diastolic blood pressure 83 mm[Hg] Mary Obrien MD Work Phone: [facility] 07-26-2022 11:13-0400 Heart rate 95 /min Mary Obrien MD Work Phone: [facility] 07-26-2022 11:13-0400 SaO2% (BldA) [Mass fraction] 97 % Mary Obrien MD Work Phone: [facility] 07-26-2022 11:13-0400 Systolic blood pressure 110 mm[Hg] Mary Obrien MD Work Phone: [facility] 05-26-2022 11:45-0400 Body height 162.56 cm Beto Snyder Other [employer] Other 05-26-2022 11:45-0400 Body mass index (BMI) [Ratio] 29.18 kg/m2 Beto Snyder Other [employer] Other 05-26-2022 11:45-0400 Body weight 77.11 kg Beto Snyder Other [employer] Other 05-12-2022 09:06-0400 Diastolic blood pressure 80 mm[Hg] Eliceo Gómez Work Phone: [employer] [employer] [facility] DO Work Phone: 05-12-2022 09:06-0400 Systolic blood pressure 126 mm[Hg] Eliceo Gómez Work Phone: [employer] DO Work Phone: 05-12-2022 08:57-0400 Body height 162.56 cm Eliceo Gómez Work Phone: [facility] DO Work Phone: 05-12-2022 08:57-0400 Body mass index (BMI) [Ratio] 29.87 kg/m2 Eliceo Gómez Work Phone: [facility] DO Work Phone: 05-12-2022 08:57-0400 Body surface area Derived from formula 1.84 m2 Eliceo Gómez Work Phone: [facility] DO Work Phone: 05-12-2022 08:57-0400 Body weight 78.93 kg Eliceo Gómez Work Phone: [facility] DO Work Phone: 05-12-2022 08:57-0400 Diastolic blood pressure 80 mm[Hg] Eliceo Gómez Work Phone: [facility] DO Work Phone: 05-12-2022 08:57-0400 Heart rate 68 /min Eliceo Gómez Work Phone: [facility] DO Work Phone: 05-12-2022 08:57-0400 Systolic blood pressure 130 mm[Hg] Eliceo Gómez Work Phone: [facility] DO Work Phone: 05-10-2022 12:30-0400 Body height 162.56 cm Allison Arita Other [employer] Other 05-10-2022 12:30-0400 Body mass index (BMI) [Ratio] 29.18 kg/m2 Allison Arita Other [employer] Other 05-10-2022 12:30-0400 Body temperature 97.3 [degF] Allison Arita Other [employer] Other 05-10-2022 12:30-0400 Body weight 77.11 kg Allison Arita Other [employer] Other 05-10-2022 12:30-0400 Respiratory rate 18 /min Allison Arita Other [employer] Other 05-10-2022 12:30-0400 SaO2% (BldA) [Mass fraction] 98 % Allison Arita Other [employer] Other 04-22-2022 12:04-0400 Body height 162.6 cm Jessi Sheets ACCOUNTS PAYABLE MANAGER.DOOR INSTALLER Work Phone: [facility] 04-22-2022 12:04-0400 Body weight 77.56 kg Jessi Sheets ACCOUNTS PAYABLE MANAGER.DOOR INSTALLER Work Phone: [facility] 04-22-2022 12:04-0400 Diastolic blood pressure 68 mm[Hg] Jessi Sheets ACCOUNTS PAYABLE MANAGER.DOOR INSTALLER Work Phone: [facility] 04-22-2022 12:04-0400 Heart rate 76 /min Jessi Sheets ACCOUNTS PAYABLE MANAGER.DOOR INSTALLER Work Phone: [facility] 04-22-2022 12:04-0400 SaO2% (BldA) [Mass fraction] 98 % Jessi Sheets ACCOUNTS PAYABLE MANAGER.DOOR INSTALLER Work Phone: [facility] 04-22-2022 12:04-0400 Systolic blood pressure 104 mm[Hg] Jessi Sheets ACCOUNTS PAYABLE MANAGER.DOOR INSTALLER Work Phone: [facility] 03-15-2022 16:30-0400 Body height 162.56 cm Beto Snyder Other [employer] Other 03-15-2022 16:30-0400 Body mass index (BMI) [Ratio] 30.55 kg/m2 Beto Snyder Other [employer] Other 03-15-2022 16:30-0400 Body weight 80.74 kg Beto Snyder Other [employer] Other 03-15-2022 08:36-0400 Body height 162.6 cm Isra Masters DO Work Phone: [facility] 03-15-2022 08:36-0400 Body weight 83.01 kg Isra Galarzae DO Work Phone: [facility] 03-15-2022 08:36-0400 Diastolic blood pressure 87 mm[Hg] Isra Galarzae DO Work Phone: [facility] 03-15-2022 08:36-0400 Heart rate 85 /min Isra Masters DO Work Phone: [facility] 03-15-2022 08:36-0400 SaO2% (BldA) [Mass fraction] 100 % Isra Galarzae DO Work Phone: [facility] 03-15-2022 08:36-0400 Systolic blood pressure 133 mm[Hg] Isra Galarzae DO Work Phone: [facility] 03-14-2022 10:23-0400 Body height 162.6 cm [employer] Work Phone: [facility] 03-14-2022 10:23-0400 Body temperature 97.2 [degF] [employer] Work Phone: [facility] 03-14-2022 10:23-0400 Body weight 83.01 kg [employer] 4 Work Phone: [facility] 03-14-2022 10:23-0400 Diastolic blood pressure 76 mm[Hg] [employer] 4 Work Phone: [facility] 03-14-2022 10:23-0400 Heart rate 74 /min [employer] 4 Work Phone: [facility] 03-14-2022 10:23-0400 Respiratory rate 16 /min [employer] 4 Work Phone: [facility] 03-14-2022 10:23-0400 SaO2% (BldA) [Mass fraction] 98 % [employer] 4 Work Phone: [facility] 03-14-2022 10:23-0400 Systolic blood pressure 114 mm[Hg] Pacc 4 Work Phone: [facility] 02-18-2022 09:43-0400 Body height 162.6 cm Nelsy Katya ACCOUNTS PAYABLE MANAGER.DOOR INSTALLER Work Phone: [facility] 02-18-2022 09:43-0400 Body weight 80.29 kg Nelsy Katya ACCOUNTS PAYABLE MANAGER.DOOR INSTALLER Work Phone: [facility] 02-18-2022 09:43-0400 Diastolic blood pressure 70 mm[Hg] Nelsy Wynnegand ACCOUNTS PAYABLE MANAGER.DOOR INSTALLER Work Phone: [facility] 02-18-2022 09:43-0400 Systolic blood pressure 110 mm[Hg] Nelsy Katya ACCOUNTS PAYABLE MANAGER.DOOR INSTALLER Work Phone: [facility] 02-08-2022 14:52-0400 Body height 162.6 cm Mary Obrien MD Work Phone: [facility] 02-08-2022 14:52-0400 Body weight 83.01 kg Mary Obrien MD Work Phone: [facility] 02-08-2022 14:52-0400 Diastolic blood pressure 76 mm[Hg] Mary Obrien MD Work Phone: [facility] 02-08-2022 14:52-0400 Heart rate 79 /min Mary Obrien MD Work Phone: [facility] 02-08-2022 14:52-0400 SaO2% (BldA) [Mass fraction] 97 % Mary Obrien MD Work Phone: [facility] 02-08-2022 14:52-0400 Systolic blood pressure 113 mm[Hg] Mary Obrien MD Work Phone: [facility] 02-08-2022 11:19-0400 Body weight 83.01 kg Magali Mitchell ACCOUNTS PAYABLE MANAGER.DOOR INSTALLER Work Phone: [facility] 02-08-2022 11:19-0400 Diastolic blood pressure 76 mm[Hg] Magali Mitchell ACCOUNTS PAYABLE MANAGER.DOOR INSTALLER Work Phone: [facility] 02-08-2022 11:19-0400 Heart rate 74 /min Magali Mitchell ACCOUNTS PAYABLE MANAGER.DOOR INSTALLER Work Phone: [facility] 02-08-2022 11:19-0400 Systolic blood pressure 113 mm[Hg] Magali Mitchell ACCOUNTS PAYABLE MANAGER.DOOR INSTALLER Work Phone: [facility] 10-20-2021 09:45-0500 Body height 162.56 cm Beto Snyder Other [facility] Other 10-20-2021 09:45-0500 Body mass index (BMI) [Ratio] 31.41 kg/m2 Beto Snyder Other [facility] Other 10-20-2021 09:45-0500 Body weight 83.01 kg Beto Snyder Other [facility] Other 08-19-2021 17:10-0400 Body height 162.56 cm Erica Kingston Other [facility] Other 08-19-2021 17:10-0400 Body mass index (BMI) [Ratio] 31.24 kg/m2 Erica Kingston Other [facility] Other 08-19-2021 17:10-0400 Body temperature 97.3 [degF] Erica Kingston Other [facility] Other 08-19-2021 17:10-0400 Body weight 82.56 kg Erica Kingston Other [facility] Other 08-19-2021 17:10-0400 Diastolic blood pressure 82 mm[Hg] Erica Kingston Other [facility] Other 08-19-2021 17:10-0400 Respiratory rate 18 /min Erica Kingston Other [facility] Other 08-19-2021 17:10-0400 SaO2% (BldA) [Mass fraction] 98 % Erica Kingston Other [facility] Other 08-19-2021 17:10-0400 Systolic blood pressure 126 mm[Hg] Erica Kingston Other [facility] Other 08-13-2021 10:15-0400 Body height 162.56 cm Tita Ginty Other [facility] Other 08-13-2021 10:15-0400 Body mass index (BMI) [Ratio] 30.89 kg/m2 Tita Ginty Other [facility] Other 08-13-2021 10:15-0400 Body temperature 6 [degF] Tita Ginty Other [facility] Other 08-13-2021 10:15-0400 Body weight 81.65 kg Tita Ginty Other [facility] Other 08-13-2021 10:15-0400 SaO2% (BldA) [Mass fraction] 99 % Tita Ginty Other [facility] Other 07-28-2021 09:30-0400 Body height 162.56 cm Beto Snyder Other [facility] Other 07-28-2021 09:30-0400 Body mass index (BMI) [Ratio] 30.89 kg/m2 Beto Snyder Other [facility] Other 07-28-2021 09:30-0400 Body weight 81.65 kg Beto Sndyer Other [employer] Other Encounters Encounter Date Encounter Type Care Provider Facility Start: 04-30-2025 End: 04-30-2025 ambulatory Shannon Gómez DO Work Phone: [facility] Work Phone: Start: 04-30-2025 End: 04-30-2025 Patient encounter procedure Salma Cavazos DO -[facility] Work Phone: Start: 04-21-2025 End: 04-21-2025 Refill Pauline Christensen MD Work Phone: [facility] Comment on above: Other migraine witho ut status migrainosus, not intractable Start: 03-17-2025 End: 03-17-2025 ambulatory Ace Ahumada MD Facility:[facility] Start: 02-25-2025 End: 02-25-2025 Patient encounter procedure Shannon Gómez DO Work Phone: [facility] [address] Cl[facility] Work Phone: Start: 02-25-2025 End: 02-25-2025 ambulatory Shannon Gómez DO Work Phone: [facility] Work Phone: Start: 02-24-2025 End: 03-10-2025 Telephone encounter Dipti Acevedo DO Work Phone: [facility] Start: 02-17-2025 End: 02-17-2025 Patient encounter procedure Shannon Gómez DO Work Phone: [facility] [address] Work Phone: Start: 02-17-2025 End: 02-17-2025 ambulatory Shannon Gómez DO Work Phone: [facility] Work Phone: Start: 01-25-2025 End: 01-25-2025 Orders Only Pauline Christensen MD Work Phone: [facility] Start: 01-20-2025 End: 01-20-2025 Bamboo flowsheet Eliceo Ellis Stephonleigha DO Work Phone: [facility] Start: 01-20-2025 End: 01-20-2025 Bamboo flowsheet Eliceo Szymanskijerometomasa DO Work Phone: [facility] Start: 01-20-2025 End: 01-20-2025 ambulatory NANCY SWENSON Not Available Start: 01-03-2025 End: 01-03-2025 Clinisync Result Encounter Generic External Data Provider [facility] External Department Unsolicited Start: 01-03-2025 End: 01-03-2025 Clinisync Result Encounter Generic External Data Provider [facility] External Department Unsolicited Start: 12-16-2024 End: 12-16-2024 Patient encounter procedure Shannon Gómez DO Work Phone: [facility] [address] Work Phone: Start: 12-16-2024 End: 12-16-2024 ambulatory Shannon Gómez DO Work Phone: [facility] Work Phone: Start: 12-11-2024 End: 12-11-[address] [place] [address] Start: 12-10-2024 End: 12-11-2024 Refill Demi Machado [facility] Comment on above: Other migraine witho ut status migrainosus, not intractable Start: 11-26-2024 End: 11-26-2024 Reflynette Gómez DO Work Phone: [facility] Comment on above: Restless legs syndro me Start: 11-20-2024 End: 11-20-2024 ambulatory Shannon Gómez DO Work Phone: [facility] Work Phone: Start: 11-20-2024 End: 11-20-2024 Patient encounter procedure Shannon Gómez DO Work Phone: [facility] Work Phone: Start: 11-19-2024 End: 11-19-2024 Bamboo flowsheet Nelsy A Felter ACCOUNTS PAYABLE MANAGER-DOOR INSTALLER Work Phone: [facility] Start: 11-19-2024 End: 11-19-2024 Bamboo flowsheet Nelsy A Felter ACCOUNTS PAYABLE MANAGER-DOOR INSTALLER Work Phone: [facility] Start: 11-19-2024 End: 11-19-2024 Office outpatient visit 15 minutes Nelsy A Felter ACCOUNTS PAYABLE MANAGER-DOOR INSTALLER Work Phone: [facility] Comment on above: Seborrheic keratosis ; Lentigines; Capillary angioma Start: 11-19-2024 End: 11-19-2024 ambulatory NELSY STALLINGSER Not Available Start: 11-14-2024 End: 11-14-2024 Patient encounter procedure Shannon Gómez DO Work Phone: [facility] Work Phone: Start: 11-14-2024 End: 11-14-2024 ambulatory Shannon Gómez DO Work Phone: [facility] Work Phone: Start: 11-12-2024 End: 11-12-2024 Postop follow up visit related to original px Dipti Acevedo DO Work Phone: [facility] Comment on above: Aftercare following surgery Start: 11-12-2024 End: 01-07-2025 ambulatory DIPTI ACEVEDO Not Available Start: 11-11-2024 End: 11-11-2024 ambulatory Ace Ahumada MD Facility: [facility] Start: 11-04-2024 End: 12-28-2024 ambulatory Shannon GÓMEZ Facility:[facility] Start: 10-28-2024 End: 10-28-2024 Postop follow up visit related to original px Dipti Acevedo DO Work Phone: [facility] Comment on above: Aftercare following surgery Start: 10-28-2024 End: 10-28-2024 ambulatory DIPTI ACEVEDO Not Available Start: 10-28-2024 ambulatory Shannon GÓMEZ Facili ty:[facility] Start: 10-24-2024 End: 10-24-2024 Admission to same day surgery center Shannon Gómez DO Work Phone: [facility] [place] Start: 10-24-2024 End: 10-24-2024 ambulatory Shannon Gómez Facility:[facility] Start: 10-23-2024 End: 10-23-2024 Office outpatient visit 40 minutes Radha Cardenas MD Work Phone: [facility]at[facility] Comment on above: Chronic diarrhea (Pr imary Dx); Chronic abdominal pain; Bloating; Inadequate oral intake; Blackford grade D esophagitis; Gastroparesis Start: 10-23-2024 ambulatory Shannon GÓMEZ Facili ty:[facility] Start: 10-15-2024 End: 10-15-2024 Office outpatient visit 25 minutes Dipti Acevedo DO Work Phone: [facility] Comment on above: PCB (post coital ble eding); Granulation tissue; Hymen abnormality Start: 10-15-2024 End: 10-15-2024 ambulatory DIPTI ACEVEDO Not Available Start: 10-14-2024 End: 10-14-2024 Patient encounter procedure Shannon Gómez DO Work Phone: [facility] Work Phone: Start: 10-10-2024 End: 10-10-2024 Patient encounter procedure Shannon Gómez DO Work Phone: [facility] [address] [facility] Work Phone: Start: 10-10-2024 End: 10-10-2024 ambulatory Shannon Gómez Facility:[facility] Start: 10-09-2024 End: 10-09-2024 ambulatory Shannon Gómez Facility:[facility] Start: 10-09-2024 Non-patient / Non-visit Shannon Gómez DO Work Phone: [facility] Work Phone: Start: 09-27-2024 End: 09-27-2024 Office outpatient visit 15 minutes Dipti Acevedo DO Work Phone: [facility] Comment on above: PCB (post coital ble eding) (Primary Dx); Granulation tissue Start: 09-27-2024 End: 09-27-2024 ambulatory DIPTI ACEVEDO Not Available Start: 09-26-2024 End: 09-26-2024 Office outpatient visit 15 minutes Ron King CASINO SLOT SUPERVISOR Work Phone: [facility] Comment on above: Degenerative disc di sease, cervical (Primary Dx) Start: 09-26-2024 End: 09-27-2024 ambulatory RON KING Not Available Start: 09-24-2024 End: 09-24-2024 Office outpatient visit 15 minutes Dipti Acevedo DO Work Phone: [facility] Comment on above: Granulation tissue; Hymen abnormality Start: 09-24-2024 End: 09-24-2024 ambulatory DIPTI ACEVEDO Not Available Start: 09-16-2024 End: 09-16-2024 ambulatory [facility] Work Phone: Start: 09-16-2024 End: 09-16-2024 Patient encounter procedure [facility] Work Phone: Start: 09-04-2024 End: 09-04-2024 Office outpatient visit 15 minutes Ron King CASINO SLOT SUPERVISOR Work Phone: [facility] Comment on above: Anxiety (Primary Dx) Urinary frequency; Urinary urgency; Burning with urination; Erythema; Chronic vulvitis; Night sweats Start: 09-04-2024 End: 09-04-2024 ambulatory RON Rivera TIGRE Not Available Start: 08-27-2024 End: 08-27-2024 ambulatory ELICEO R KALEIGHA Not Available Start: 08-26-2024 ambulatory [facility] Facility[facility] Start: 08-07-2024 End: 08-07-2024 Office outpatient visit 40 minutes Radha Cardenas MD Work Phone: [facility]at[facility] Comment on above: Chronic abdominal pa in (Primary Dx); Avoidant-restrictive food intake disorder (ARFID); Bloating; Gastroparesis Start: 08-07-2024 ambulatory [facility] Facility:[facility] Start: 08-05-2024 End: 08-05-2024 ambulatory Ace Ahumada MD [facility] Start: 08-01-2024 End: 08-01-2024 Office outpatient visit 15 minutes Eliceo Gómez DO Work Phone: [facility] Comment on above: Oral candidiasis (Pr imary Dx); Tongue pain Start: 08-01-2024 End: 08-01-2024 ambulatory ELICEO GÓMEZ Not Available Start: 07-26-2024 End: 07-26-2024 ambulatory [facility] Start: 07-22-2024 End: 07-22-2024 ambulatory Ace Ahumada MD Facility: [facility] Start: 07-15-2024 End: 07-15-2024 ambulatory ELICEO R DALIA Not Available Start: 07-11-2024 End: 07-11-2024 Bamboo flowsheet Eliceo Gómez DO Work Phone: [facility] Start: 07-11-2024 End: 07-11-2024 Bamboo flowsheet Eliceo R Dalia DO Work Phone: [facility] Start: 07-11-2024 End: 07-11-2024 ambulatory ELICEO GÓMEZ Not Available Start: 07-11-2024 End: 07-11-2024 Office outpatient visit 15 minutes Eliceo Gómez DO Work Phone: [facility] Comment on above: Soft tissue mass (Pr imary Dx); Gastro-esophageal reflux disease without esophagitis; Gastroparesis; Mild intermittent asthma, unspecified whether complicated ([facility]) Start: 07-01-2024 End: 07-01-2024 ambulatory Ace Ahumada MD Facility: [facility] Start: 06-27-2024 End: 06-27-2024 Bamboo flowsheet Sidney Amezquita DPM Work Phone: [facility] Start: 06-27-2024 End: 06-27-2024 Bamboo flowsheet Sidney Amezquita DPM Work Phone: [facility] Start: 06-27-2024 End: 06-27-2024 Patient encounter procedure Sidney Amezquita DPM Work Phone: [facility] Comment on above: Peroneal tendinitis of right lower extremity (Primary Dx); Bilateral foot pain; Exostosis of bone of foot Start: 06-27-2024 End: 06-27-2024 ambulatory SIDNEY AMEZQUITA Not Available Start: 06-17-2024 End: 06-17-2024 ambulatory Ace Ahumada MD Facility: [facility] Start: 06-14-2024 End: 06-14-2024 ambulatory CARMEN CRUZ Not Available Start: 06-12-2024 Refill Isra rios DO Work Phone: Gastroenterology Comment on above: Refill Request Start: 06-12-2024 End: 06-12-2024 ambulatory DIPTI ACEVEDO Not Available Start: 06-12-2024 End: 06-12-2024 ambulatory RON KING Not Available Start: 06-03-2024 End: 06-03-2024 ambulatory CARMEN A PETITTI Not Available Start: 05-27-2024 End: 05-27-2024 ambulatory DO Shannon Lugo Dalia Work Phone: [facility] Work Phone: Start: 05-27-2024 End: 05-27-2024 Departed Referred DO Shannon Szymanskileigha Work Phone: [facility] Start: 05-20-2024 End: 05-20-2024 ambulatory DIPTI ACEVEDO Not Available Start: 05-14-2024 End: 05-15-2024 Refill [facility] Comment on above: Other migraine witho ut status migrainosus, not intractable (Primary Dx) Start: 05-13-2024 End: 05-13-2024 ambulatory Ace Ahumada MD Facility:[facility] Start: 05-06-2024 End: 05-06-2024 ambulatory NELSY SNYDER Not Available Start: 05-02-2024 End: 05-02-2024 ambulatory ELICEO GÓMEZ Not Available Start: 04-30-2024 End: 04-30-2024 Patient encounter procedure DO Shannon Szymanskileigha Work Phone: [facility] [address] Work Phone: Start: 04-30-2024 End: 04-30-2024 ambulatory DO Shannon Szymanskileigha Work Phone: [facility] Work Phone: Start: 04-28-2024 End: 04-29-2024 ambulatory [facility] Start: 04-28-2024 End: 04-28-2024 ambulatory [facility] Start: 04-22-2024 End: 04-22-2024 ambulatory Ace Ahumada MD Facility:[facility] Start: 04-15-2024 End: 04-15-2024 ambulatory SIDNEY AMEZQUITA Not Available Start: 04-12-2024 ambulatory PADMAJA LLAMAS Facility:[facility] Start: 04-12-2024 End: 04-12-2024 Subsequent hospital visit by physician Milagros Franco MD, PhD Work Phone: [facility] Comment on above: Arrived Start: 04-03-2024 End: 04-03-2024 ambulatory PAULINE CHRISTENSEN [facility] Start: 03-26-2024 End: 03-26-2024 ambulatory JES MARTINEZ Not Available Start: 03-14-2024 End: 03-14-2024 ambulatory RON KING Not Available Start: 03-12-2024 ambulatory Flower Daniele on ACCOUNTS PAYABLE MANAGER.DOOR INSTALLER Work Phone: URO/Gynecology Comment on above: Estradiol vaginal cr eam Start: 03-08-2024 ambulatory SELF SELF Facility:[facility] Start: 03-06-2024 ambulatory Shannon PARISH DALIA Ramos ty:[facility] Start: 03-06-2024 ambulatory RADHA Lemos y:[facility] Start: 03-06-2024 ambulatory IsatuReno PARISH SZYMANSKILEIGHA Ramos ty:[facility] Start: 02-27-2024 End: 02-27-2024 ambulatory FLOWER JESSICA Facility:[facility] Start: 02-27-2024 End: 02-27-2024 Patient encounter procedure Flower Jessica ACCOUNTS PAYABLE MANAGER.DOOR INSTALLER Work Phone: URO/Gynecology Comment on above: Post-operative state (Primary Dx); Vaginal burning Start: 02-11-2024 End: 02-11-2024 ambulatory ELICEO GÓMEZ JR Facility:[facility] Start: 02-11-2024 End: 02-11-2024 ambulatory Lissa Doyle ACCOUNTS PAYABLE MANAGER.DOOR INSTALLER Work Phone: Telemedicine Comment on above: Procedure and treatm ent not carried out for other reasons (Primary Dx) Start: 02-11-2024 End: 02-11-2024 Telemedicine consultation with patient Lissa Doyle ACCOUNTS PAYABLE MANAGER.DOOR INSTALLER Work Phone: [facility] Start: 02-09-2024 End: 02-09-2024 ambulatory Pam Wang MD Work Phone: URO/Gynecology Comment on above: Yeast infection Start: 02-07-2024 End: 02-07-2024 ambulatory [facility] Start: 01-27-2024 Telephone encounter Radha florez MD Work Phone: Gynecology Start: 01-26-2024 End: 01-26-2024 ambulatory ELICEO PARISH SZYMANSKILEIGHA JENKINS Facility:[facility] Start: 01-25-2024 End: 01-25-2024 Telemedicine consultation with patient Nurse Photographic Aide Work Phone: [facility] Start: 01-25-2024 Encounter for other preprocedural examination PAM [facility] Start: 01-25-2024 End: 01-25-2024 [facility]: [facility] Start: 01-25-2024 End: 01-25-2024 ambulatory Nurse Photographic Aide Work Phone: Pre Anesthesia Comment on above: Pre-op examination ( Primary Dx); Obesity (BMI 30.0-34.9); Mild persistent asthma without complication; CHUCKIE (obstructive sleep apnea); Primary hypertension; Gastroparesis; Gastroesophageal reflux disease, unspecified whether esophagitis present Educational circumst ances (Primary Dx) Start: 01-25-2024 End: 01-25-2024 Preprocedural examination done [facility] Work Phone: [facility] Work Phone: Start: 01-23-2024 End: 01-23-2024 ambulatory ELICEO Asiya GÓMEZ Not Available Start: 01-10-2024 End: 01-10-2024 ambulatory CULLEN DAWKINS [facility] Start: 01-10-2024 End: 01-10-2024 Postop follow up visit related to original px Cullen Dawkins MD Work Phone: [facility] Comment on above: CHUCKIE (obstructive sle ep apnea) (Primary Dx) Start: 01-03-2024 End: 01-03-2024 Evaluation and management of inpatient RAJIV Asiya [facility] Start: 01-02-2024 End: 01-03-2024 Evaluation and management of inpatient [facility] Start: 01-02-2024 End: 01-02-2024 Evaluation and management of inpatient [facility] Start: 12-27-2023 Telephone encounter Cullen glover MD Work Phone: [facility] Start: 12-25-2023 ambulatory Pam rios MD Work Phone: URO/Gynecology Comment on above: Having another stimu lator besides bladder Start: 12-25-2023 Telephone encounter Pam simon MD Work Phone: Gynecology Comment on above: Question Start: 12-20-2023 End: 12-20-2023 ambulatory [facility] Start: 12-20-2023 Encounter for other preprocedural examination RAJIV [facility] Start: 12-20-2023 End: 12-20-2023 Patient encounter procedure [facility] Comment on above: Pre-op testing (Prim tomer Dx) Start: 12-20-2023 End: 12-20-2023 Patient encounter status [facility] Start: 11-27-2023 End: 11-27-2023 ambulatory Beto Snyder Other [facility] Other Start: 11-27-2023 Telephone encounter Beto [facility] Start: 11-23-2023 End: 11-23-2023 ambulatory DO Shannon Gómez Work Phone: [facility] Work Phone: Start: 11-23-2023 End: 11-23-2023 Patient encounter procedure DO Shannon Gómez Work Phone: [facility] [place] Work Phone: Start: 11-21-2023 End: 11-21-2023 ambulatory ELICEO GÓMEZ JR Facility:[facility] Start: 11-16-2023 End: 11-16-2023 ambulatory Beto Snyder Other [facility] Other Start: 11-16-2023 Telephone encounter Beto Snyder [facility] Start: 11-08-2023 Telephone encounter Emily amelia [facility] Start: 11-03-2023 Orders Only Pauline Christensen MD Work Phone: [facility] Start: 10-26-2023 End: 10-26-2023 ambulatory Beto Snyder Other [facility] Other Start: 10-26-2023 Telephone encounter Beto Snyder [facility] Start: 10-23-2023 End: 10-23-2023 ambulatory [facility] Thomas WHITECHRISTENSEN [facility] Start: 10-10-2023 End: 10-10-2023 ambulatory ELICEO GÓMEZ JR Facility:[facility] Start: 10-06-2023 End: 10-06-2023 ambulatory Beto Snyder Other [employer] Other Start: 10-06-2023 Telephone encounter Beto Snyder [facility] Start: 09-27-2023 End: 09-27-2023 ambulatory Pam Wang MD Work Phone: Urogynecology Comment on above: Worsening Start: 09-27-2023 Refill Doris Arias APRN.CNP Work Phone (unformatted): [phone] Urogynecology Comment on above: Med Change Request Start: 09-11-2023 End: 09-11-2023 ambulatory PAM WANG Facility:[facility] Start: 08-12-2023 End: 08-12-2023 Emergency department patient visit LEX SALMON [facility] Start: 08-12-2023 End: 08-12-2023 Emergency department patient visit Lex Salmon MD Work Phone: [facility] Emergency Dept Comment on above: Upper abdominal pain (Primary Dx) Start: 08-09-2023 ambulatory Mary Obrien MD Work Phone: Colorectal Surgery Comment on above: Response Start: 08-07-2023 End: 08-07-2023 ambulatory Mary Obrien MD Work Phone: Colorectal Surgery Comment on above: Colon Start: 08-01-[address] Eliceo Gómez Jr Facility: Start: 07-31-2023 End: 07-31-2023 ambulatory ELICEO GÓMEZ JR Facility:[facility] Start: 07-31-2023 End: 07-31-2023 Patient encounter procedure Nelsy Chávez ACCOUNTS PAYABLE MANAGER.DOOR INSTALLER Work Phone: URO/Gynecology Comment on above: Incomplete bladder e mptying (Primary Dx); Constipation, unspecified constipation type; Urinary urgency; Urinary frequency; Nocturia Start: 07-17-2023 (Procedure) Win Snyder [facility] Start: 07-17-2023 End: 07-17-2023 ambulatory Beto Snyder Other [facility] Other Start: 07-12-2023 End: 07-12-2023 ambulatory Beto Snyder Other [facility] Other Start: 07-12-2023 Telephone encounter Beto BATES [facility] Start: 06-13-2023 Office consultation new/estab patient 60 min Eliceo Gómez Work Phone: [facility] [address] DO Work Phone: Start: 06-13-[address] Dipti Anaya Facility: Start: 06-07-[address] Dipti Anaya Facility:[id number] Start: 06-05-2023 End: 06-05-2023 Emergency department patient visit DO Shannon Gómez Work Phone: [facility]gency [facility] Work Phone: Start: 05-28-2023 ambulatory Pam rios MD Work Phone: URO/Gynecology Comment on above: Problems with urinat ing Start: 04-26-2023 End: 04-26-2023 ambulatory Beto Snyder Other [employer] Other Start: 04-26-2023 Office outpatient vi sit 25 minutes Beto Snyder [facility] Start: 04-11-2023 Refill Isra S Clin e DO Work Phone: Gastroenterology Comment on above: Refill Request Start: 04-04-2023 End: 04-05-[address] Isatu GÓMEZ Facility:H1 Start: 03-19-2023 ambulatory Isra S Clin e DO Work Phone: Gastroenterology Comment on above: Stool sample results Start: 03-17-2023 End: 03-17-2023 ambulatory DO Shannon Gómez Work Phone: [facility] Work Phone: Start: 03-17-2023 End: 03-17-2023 Discharged Recurring DO Shannon Gómez Work Phone: [facility]Physical [facility] [place] Work Phone: Start: 03-15-2023 Orders Only Isra [...] Isatu GÓMEZ Facility:H1 Start: 01-20-2023 ambulatory Winston whatley DO Work Phone: General Surgery Comment on above: Clarification Start: 01-19-2023 ambulatory Winston whatley DO Work Phone: General Surgery Comment on above: General Start: 01-16-2023 Telephone encounter Mouinka Be bud PETERS Work Phone: Pre Anesthesia Comment on above: Appointment (Pt has not arrived for her 1 pm appointment) Start: 01-16-2023 End: 01-16-2023 Admission to [facility] Virtual [facility] Start: 01-16-2023 End: 01-16-2023 ambulatory [facility] Virtual Pre Anesthesia Comment on above: Preop examination (P rimary Dx); Nausea; CHUCKIE (obstructive sleep apnea); Mild persistent asthma without complication; Gastroesophageal reflux disease, unspecified whether esophagitis present; Gastroparesis Start: 01-16-2023 End: 01-16-2023 Preprocedural examination done Pac Virtual Pre Anesthesia Start: 01-11-2023 Telephone encounter Winston aceves DO Work Phone: General Surgery Comment on above: Schedule Procedure Start: 01-10-2023 End: 01-10-2023 ambulatory Winston Zoya Hannah DO Work Phone: General Surgery Comment on above: Pylorospasm (Primary Dx); Functional dyspepsia; Gastroesophageal reflux disease with esophagitis without hemorrhage Start: 01-10-2023 End: 01-10-2023 Telemedicine consultation with patient Winston Keys Brielle DO Work Phone: [facility] Start: 12-28-2022 ambulatory Yoni Tuttle MD [...] patient Winston Keys Brielle DO Work Phone: [facility] Start: 12-21-2022 End: 12-22-2022 ambulatory SADE FELIX Facility:H1 Start: 12-15-2022 End: 12-15-2022 Manual pelvic examination Mary Obrien MD Work Phone: Colorectal Surgery Comment on above: Colonic inertia (Phoebe unique Dx); Pelvic floor dysfunction; Nausea; Gastroparesis Start: 12-15-2022 End: 12-15-2022 Telemedicine consultation with patient Mary Obrien MD Work Phone: [facility] Start: 12-14-2022 ambulatory Yoni Tuttle [...] results; patient questions) Start: 12-07-2022 ambulatory Winstonaureliano whatley DO Work Phone: General Surgery Comment on above: Carafate Start: 12-06-2022 ambulatory Isra S Clin e DO Work Phone: Gastroenterology Comment on above: Results Start: 12-05-2022 ambulatory Winston whatley DO Work Phone: [facility] Start: 12-02-2022 ambulatory Isra S Clin e DO Work Phone: [facility] Start: 12-02-2022 Telephone encounter Yoni Tuttle MD Work Phone: Neurology Comment on above: Returning Nurse Call Start: 12-01-2022 End: 12-02-2022 ambulatory NEICY DURON Facility:H1 Start: 11-30-2022 End: 11-30-2022 ambulatory Isra Masters DO Work Phone: Gastroenterology Comment on above: Chronic idiopathic c onstipation (Primary Dx); Nausea Start: 11-30-2022 End: 11-30-2022 Telemedicine consultation with patient Isra Masters DO Work Phone: [facility] Start: 11-24-2022 ambulatory Isra rios DO Work [...] Start: 11-21-2022 End: 11-21-2022 [facility]: [facility] Start: 11-21-2022 End: 11-21-2022 Preprocedural examination done Pac 2 Work Phone: Pre Anesthesia Start: 11-17-2022 ambulatory Annmarie Gillespie RN Gastroe nterology Start: 11-17-2022 Patient encounter procedure [facility]ie Gillespie [facility] Start: 11-17-2022 End: 11-17-2022 Subsequent hospital visit by physician Capsule Work Phone: Gastroenterology Start: 11-16-2022 ambulatory Yoni Tuttle MD Work Phone: NEUROLOGY Comment on above: The delay Start: 11-15-2022 ambulatory Yoni Tuttle MD Work Phone: NEUROLOGY Comment on above: Labs Start: 11-14-2022 End: 11-15-2022 ambulatory NIECY DURON Facility:H1 Start: 11-10-2022 Telephone encounter Annmarie Gillespie RNsign builder Comment on above: Preparations For Pro cedures [...] Encounter for preprocedural laboratory examination SADE FELIX [facility] Start: 10-20-2022 End: 10-20-2022 ambulatory [...] DO Shannon Gómez Work Phone: [facility] Work Phone: Start: 10-14-2022 End: 10-14-2022 Discharged Recurring DO Shannon Gómez Work Phone: [facility]-Physical Therapy [place] Work Phone: Start: 10-13-2022 End: 10-14-2022 ambulatory [facility] Facility:H1 Start: 10-13-2022 End: 10-14-2022 Encounter for preprocedural laboratory examination [facility] Facility:H1 Start: 10-11-2022 End: 10-11-2022 ambulatory Beto Cartagena Other [employer] Other Start: 10-11-2022 Telephone encounter Beto Cartagena [facility] Start: 10-11-2022 End: 10-11-2022 Patient encounter procedure Isra Masters Work Phone: Gastroenterology Comment on above: Gas bloat syndrome ( Primary Dx); Chronic idiopathic constipation; Gastroparesis Start: 10-10-2022 End: 10-10-2022 ambulatory Beto Cartagena Other [employer] Other Start: 10-10-2022 Office outpatient ne w 30 minutes Beto Cartagena [facility] Start: 10-06-2022 End: 10-06-2022 ambulatory Beto Snyder Other [employer] Other Start: 10-06-2022 Patient encounter procedure Beto Snyder [facility] Start: 09-28-2022 Encounter for other preprocedural examination SADE Keys [facility] Start: 09-28-2022 Encounter for preprocedural cardiovascular examination [facility] Start: 09-26-2022 End: 09-27-2022 ambulatory SADE Keys [facility] Facility:H1 Start: 09-22-2022 Office outpatient vi sit 25 minutes Beto Snyder [facility] Start: 09-22-2022 Telephone encounter eBto [facility] Start: 09-22-2022 End: 09-22-2022 ambulatory DO Shannon Gómez Work Phone: [employer] Other Start: 09-22-2022 End: 09-22-2022 Patient encounter procedure DO Shannon Szymanskileigha Work Phone: [facility] [place] [facility] Start: 09-14-2022 End: 09-14-2022 ambulatory Eliceo Gómez Other [employer] Other Start: 09-14-2022 Encounter by sierra Gómez [facility] Start: 09-14-2022 Office outpatient vi sit 15 minutes Beto Snyder [facility] Start: 09-14-2022 Telephone encounter [facility]o [facility] Start: 08-16-2022 ambulatory Mary Obrien MD Work Phone: Colorectal Surgery Comment on above: CT results Ct scan result quest ion Start: 08-16-2022 E-mail encounter fro m caregiver Mary Obrien MD Work Phone: [facility] Start: 08-12-2022 End: 08-12-2022 Subsequent hospital visit by physician Ct Prep [facility] Radiology Start: 07-27-2022 End: 07-28-2022 ambulatory [facility] Facility: Start: 07-26-2022 Telephone encounter Isra Masters DO Work Phone: Gastroenterology Comment on above: Medication Problem; Medication 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 ([place] for Dexlansoprazole) Start: 07-26-2022 End: 07-26-2022 Patient encounter procedure Mary Obrien MD Work Phone: Colorectal Surgery Comment on above: Follow-up examinatio n after colorectal surgery (Primary Dx); Periumbilical abdominal pain; Outlet dysfunction constipation; Colonic inertia Start: 06-08-2022 (Procedure) Win Snyder [facility] Start: 06-08-2022 End: 06-08-2022 ambulatory Beto Snydre Other [employer] Other Start: 05-30-2022 Refill Mary Obrien MD Work Phone: Colorectal Surgery Comment on above: Refill Request Start: 05-26-2022 End: 05-26-2022 ambulatory Beto Snyder Other [employer] Other Start: 05-26-2022 Office outpatient vi sit 25 minutes Beto Snyder [facility] Start: 05-12-2022 Office consultation new/estab patient 60 min Eliceo Gómez Work Phone: [facility] [facility] DO Work Phone: Start: 05-10-2022 End: 05-10-2022 ambulatory Allison Arita Other [facility] Other Start: 05-10-2022 Office outpatient vi sit 15 minutes Allison Arita [facility] Start: 05-03-2022 Telephone encounter Mary brewer MD Work Phone: Colorectal Surgery Comment on above: Manager Leadership Development - O ther Start: 04-26-2022 Telephone encounter Mary brewer MD Work Phone: Colorectal Surgery Comment on above: Patient Question Start: 04-22-2022 End: 04-22-2022 Patient encounter procedure Jessi Dantemakenzie ACCOUNTS PAYABLE MANAGER.DOOR INSTALLER Work Phone: Colorectal Surgery Comment on above: Follow-up examinatio n after colorectal surgery (Primary Dx); Pelvic floor dysfunction Start: 04-17-2022 End: 04-17-2022 ambulatory CHASITY FREIRE . Facility: Start: 04-07-2022 Telephone encounter Rachael Keys [facility] Department Comment on above: PostOp Follow-up Start: 03-22-2022 Telephone encounter Mary brewer MD Work Phone: Colorectal Surgery Comment on above: Patient Question Start: 03-15-2022 End: 03-15-2022 ambulatory Beto Snyder Other [employer] Other Start: 03-15-2022 Office outpatient vi sit 15 minutes Beto [facility] Start: 03-15-2022 Telephone encounter Mary brewer MD Work Phone: Colorectal Surgery Comment on above: Manager Leadership Development - O ther Medication Preauthor ization (PA for Dexilant renewal) Outside Labs Results Start: 03-15-2022 End: 03-15-2022 Patient encounter procedure Isra Masters DO Work Phone: Gastroenterology Comment on above: Gastroesophageal ref lux disease, unspecified whether esophagitis present; Chronic idiopathic constipation Start: 03-14-2022 End: 03-14-2022 [facility] 4 Work Phone: Pre Anesthesia Comment on above: Preop examination (P rimary Dx); Attention to ileostomy (HCC); Primary hypertension; Gastroparesis; Gastroesophageal reflux disease, unspecified whether esophagitis present; Mild persistent asthma without complication; Bipolar 1 disorder (HCC); Obesity (BMI 30.0-34.9) Start: 03-14-2022 End: 03-14-2022 Preprocedural examination done [facility] 4 Work Phone: Pre Anesthesia Start: 02-28-2022 Telephone encounter Isra Masters DO Work Phone: Gastroenterology Comment on above: Appointment (for scr ipt refill) Start: 02-18-2022 End: 02-18-2022 Patient encounter procedure Nelsy Chávez DANN.DOOR INSTALLER Work Phone: URO/Gynecology Comment on above: Postoperative state (Primary Dx) Start: 02-11-2022 End: 02-11-2022 ambulatory Flaca Bartholomew PT Work Phone: [facility] Start: 02-11-2022 End: 02-11-2022 Follow-up encounter Flaca Bartholomew PT Work Phone: [place] [facility] Physical Therapy Comment on above: Pelvic floor dysfunc tion (Primary Dx); Lack of coordination; Follow-up examination after colorectal surgery Start: 02-09-2022 (Procedure) Win Snyder [facility] Start: 02-09-2022 End: 02-09-2022 ambulatory Beto Snyder Other [facility] Other Start: 02-08-2022 End: 02-08-2022 Patient encounter [...] Newton Woodward PT Work Phone: [facility] Start: 01-31-2022 End: 01-31-2022 Follow-up encounter Newton Woodward PT Work Phone: [facility] Physical Therapy Comment on above: Pelvic floor dysfunc tion (Primary Dx); Lack of coordination; Follow-up examination after colorectal surgery Start: 11-25-2021 End: 11-25-2021 ambulatory Beto Pradeeptonia Other [employer] Other Start: 11-25-2021 Office outpatient vi sit 25 minutes Beto Snyder [facility] Start: 11-17-2021 End: 11-18-2021 ambulatory [facility] Start: 10-20-2021 End: 10-20-2021 ambulatory Beto Pradeeptonia Other [employer] Other Start: 10-20-2021 Office outpatient vi sit 25 minutes Beto Snyder [facility] Start: 10-13-2021 (Procedure) Win Snyder [facility] Start: 10-13-2021 End: 10-13-2021 ambulatory Beto Snyder Other [employer] Other Start: 09-06-2021 Office outpatient vi sit 25 minutes Beto Snyder [facility] Start: 08-19-2021 Office outpatient vi sit 15 minutes Erica Kingston [facility] Start: 08-13-2021 Office outpatient vi sit 15 minutes Tita Daugherty [facility] Start: 08-12-2021 Office outpatient vi sit 25 minutes Beto Snyder [facility] Start: 07-28-2021 Office outpatient vi sit 25 minutes Beto Snyder [facility] Start: 12-25-2020 End: 12-25-2020 Subsequent hospital visit by physician Brianna Connors 1 Work Phone: Radiology Comment on above: Post-operative state [Z98.890] Start: 09-29-2020 End: 09-29-2020 Subsequent hospital visit by physician Brianna Connors 1 Work Phone: Radiology Comment on above: Pain [R52] Procedures Date Procedure Procedure Detail Performing Clinician Start: 02-25-2025 XR pre/post mri xray Shannon Szymanskileigha DO Work Phone: Start: 02-25-2025 MR thoracic spine wo con Shannon Szymanskileigha DO Work Phone: Start: 02-17-2025 Aldolase measurement Shannon Szymanskileigha DO Work Phone: Comment on above: Performed at: [place] [id number] Director: Erick Neville PhD, Phone: [phone] Start: 01-03-2025 XR FOOT RT MIN 3V Gener ic External Data Provider Start: 11-20-2024 Plain X-ray of bilat eral shoulders Shannon Szymanskileigha DO Work Phone: Start: 11-14-2024 Radionuclide gastric emptying study Shannon Szymanskileigha DO Work Phone: Start: 11-04-2024 Follow-up visit Follow-up MERISSA DELAROSA Start: 10-24-2024 Colposcopy of vulva Shannon Lugo Dalia DO Work Phone: Start: 10-10-2024 XR pre/post mri xray Shannon Szymanskileigha DO Work Phone: Start: 10-10-2024 MRI of cervical spin e without contrast Shannon Gómez DO Work Phone: Start: 10-10-2024 MR lumbar spine wo con Shannon Gómez DO Work Phone: Start: 09-04-2024 Urnls dip stick/tabl et rgnt non-auto w/o micrscp Dipti Acevedo DO Work Phone: Start: 07-26-2024 Follow-up visit Follow-up PAULINE HOUSTON Start: 04-30-2024 MRI of right ankle DO Isatu Góemz Work Phone: Start: 04-12-2024 DIAGNOSTIC UPPER ENDOSCOPY Padmaja Llamas MD, PhD Work Phone: Start: 02-27-2024 BACTERIAL VAGINOSIS NAAT Flower Lopez ACCOUNTS PAYABLE MANAGER.DOOR INSTALLER Work Phone: Start: 02-27-2024 Iadna trichomonas vaginalis amplified probe tech Flower Lopez ACCOUNTS PAYABLE MANAGER.DOOR INSTALLER Work Phone: Start: 02-27-2024 Urnls dip stick/tabl et rgnt auto w/o microscopy Flower Lopez ACCOUNTS PAYABLE MANAGER.DOOR INSTALLER Work Phone: Start: 12-20-2023 Basic metabolic pane [...] Assay of troponin quantitative Lev Ritter APRN DOOR INSTALLER Work Phone: Start: 08-12-2023 Ct abdomen & pelvis w/contrast material Lev Ritter APRN DOOR INSTALLER Work Phone: Start: 08-12-2023 Urnls dip stick/tabl et reagent auto microscopy Lex Salmon MD Work Phone: Start: 08-12-2023 Basic metabolic pane l calcium total Lex Salmon MD Work Phone: Start: 08-12-2023 DARK GREEN TOP Lex buitrago MD Work Phone: Start: 08-12-2023 GOLD TOP Lex bacon MD Work Phone: Start: 08-12-2023 Hepatic function panel Lev Ritter APRN DOOR INSTALLER Work Phone: Start: 08-12-2023 LIGHT BLUE TOP Lex buitrago MD Work Phone: Start: 08-12-2023 RAINBOW DRAW Lex bacon MD Work Phone: Start: 08-12-2023 Urine test visual color cmprsn meths Lex Salmon MD Work Phone: Start: 08-12-2023 Ecg routine ecg w/le ast 12 lds trcg only w/o i&r Lex Salmon MD Work Phone: Start: 07-31-2023 Urnls dip stick/tabl et rgnt auto w/o microscopy Nelsy Wynnegand ACCOUNTS PAYABLE MANAGER.[facility] Work Phone: Start: 06-05-2023 Plain chest X-ray DO Shannon Gómez Work Phone: Start: 05-23-2023 H/O: artificial joint Presence of right artificial ankle joint Sidney Amezquita DPM Work Phone: Start: 03-02-2023 Aerobic microbial culture DO Shannon Gómez Work Phone: Start: 02-20-2023 Radiologic exam esop hagus single contrast study Winston Hannah DO Work Phone: Start: 09-22-2022 Plain X-ray of bilat eral shoulders DO Shannon Parish Gómez Work Phone: Start: 09-22-2022 X-ray of both knees DO Shannon Lugo Dalia Work Phone: Start: 09-14-2022 Mammography Lex rincon MD Work Phone: Start: 03-02-2022 Lipid 1996 panel - S jay or Plasma Nelsy Chávez ACCOUNTS PAYABLE MANAGER.DOOR INSTALLER Work Phone: Start: 02-08-2022 Urnls dip stick/tabl et rgnt auto w/o microscopy Magali Mitchell ACCOUNTS PAYABLE MANAGER.DOOR INSTALLER Work Phone: Start: 12-16-2021 Antibody screen Comment on above: Performed By: #### T SCR30 ####[address] [phone] Start: 10-15-2021 Antibody screen Comment on above: Performed By: #### T SCR30 ####[place] [id number] Start: 06-28-2021 Mammography Mary brewer MD Work [...] DTAP/TDAP/TD VACCINE (2 - Td or Tdap) [facility] Start: 06-22-2030 DTaP,Tdap and Td Vaccines (2 - Td or Tdap) DTaP,Tdap and Td Vaccines (2 - Td or Tdap) [facility] Start: 06-22-2030 Tetanus vaccination TETANUS [facility] Start: 06-22-2030 Urine microalbumin profile DTaP,Tdap,Td Vaccine (2 - Td or Tdap) [facility] Start: 11-01-2028 Lipid panel Lipid Screening [facility] Start: 12-05-2027 COLORECTAL CANCER SCREENING COLORECTAL CANCER SCREENING [facility] Start: 12-05-2027 Screening for malignant neoplasm of colon [facility] Start: 12-05-2027 SIGMOIDOSCOPY SIGMOIDOSCOPY [facility] Start: 03-02-2027 Lipid 1996 panel - Serum or Plasma Lipid Screening [facility] Start: 03-02-2027 LIPID SCREEN LIPID SCREEN [facility] Start: 12-20-2026 Diabetes Screening Diabetes Screening [facility] Start: 08-12-2026 Diabetes Screening Diabetes Screening [facility] Start: 01-20-2026 Medicare Annual Wellness (AWV) Medicare Annual Wellness (AWV) [facility] Start: 11-20-2025 End: 11-20-2025 Patient encounter procedure 11/20/2025 8:30 AM EST Office Visit [facility] [address] [place] [id number] Nelsy Snyder APRN-KWESI [address] [place] [address] [facility] Start: 07-07-2025 Influenza vaccination Influenza Vaccine [facility] Start: 06-17-2025 End: 06-17-2025 Patient encounter procedure 06/17/2025 8:15 AM EDT Office Visit [facility] [address] [place] [phone] Soraida Gama PA [address] [place] [address] [facility] A [facility] Start: 04-30-2025 End: 04-30-2025 Patient encounter procedure 04/30/2025 4:00 PM EDT Procedure Visit [facility] KARINA [address] [place] [address] Salma Galeas DO [address] [place], [place] [id number] [facility] Start: 04-05-2025 DIABETES SCREEN DIABETES SCREEN [facility] Start: 04-05-2025 Diabetes Screening Diabetes Screening [facility] Start: 03-14-2025 DIABETES SCREEN DIABETES SCREEN [facility] Start: 03-14-2025 Medicare Annual Wellness (AWV) Medicare Annual Wellness (AWV) [facility] Start: 02-17-2025 [facility] Start: 01-20-2025 End: 01-20-2025 Patient encounter procedure 01/20/2025 1:00 PM EDT Office Visit [facility] [address] [place] [id number] Eliceo Gómez DO [address] [place] [address] Bipolar disorder, current episode depressed, moderate (CMS/HCC) [facility] Comment on above: Bipolar disorder, current episode depres sed, moderate (CMS/HCC) Start: 01-09-2025 Adult BMI Screening Adult BMI Screening [facility] Start: 01-09-2025 Tobacco Screening Tobacco Screening [facility] Start: 12-26-2024 DIABETES SCREEN DIABETES SCREEN [facility] Start: 12-20-2024 Adult BMI Screening Adult BMI Screening [facility] Start: 12-20-2024 Tobacco Screening [facility] Start: 12-16-2024 Aldolase measurement [facility] Start: 12-16-2024 Hemolytic complement CH50 level [facility] Start: 12-16-[address] [facility] Start: 11-20-2024 Patient referral [facility] Work Phone: Start: 11-19-2024 End: 11-19-2024 Patient encounter procedure [facility] Comment on above: Arrived Start: 11-12-2024 End: 11-12-2024 Patient encounter procedure 11/12/2024 8:30 AM EST Office Visit [facility] [address] [place] [phone] Dipti Acevedo DO [address] [place] [address] [facility] Start: 11-11-2024 End: 11-11-2024 Patient encounter procedure 11/11/2024 9:20 AM EST Office Visit [facility] [address] [place] [address] Nelsy Snyder APRN-KWESI [address] [place] [address] [facility] Start: 11-04-2024 End: 11-04-2024 Telemedicine consultation with patient 11/04/2024 2:00 PM EST Telemedicine [facility] [place] [address] [place] [phone] Merissa Delarosa, RD [address] [place] [address] 2[address] [place] [address] [facility] [place] Start: 11-01-2024 End: 11-01-2024 Professional / ancillary services management 11/01/2024 11:00 AM EST Ancillary Procedure [facility] [place] [address] [place] [phone] [facility] [place] Start: 11-01-2024 End: 11-01-2024 Patient encounter procedure [facility] Comment on above: Aftercare following surgery Start: 10-31-2024 Screening for malignant neoplasm of breast [facility] Start: 10-28-2024 End: 10-28-2024 Telemedicine consultation with patient 10/28/2024 9:00 AM EST Telemedicine [facility] Outpatient [facility] [address] [place] [address] Lissa Lou, RD [address] [place] [phone] [facility] [place] Start: 10-24-[address] [facility] Start: 10-24-[address] [facility] Start: 10-23-2024 Adult BMI Screening Adult BMI Screening [facility] Start: 10-23-2024 Depression Screening Depression Screening [facility] Start: 10-23-2024 End: 10-23-2025 FECAL FAT,QUANTITATIVE FECAL FAT,QUANTITATIVE Fluids Routine Chronic diarrhea Expected: 10/23/2024, Expires: 10/23/2025 [facility] Comment on above: Expected: 10/23/2024, Expires: Start: 10-23-2024 End: 10-23-2025 NM Stomach Views for gastric emptying W [id number] SC PO NUC GASTRIC EMPTYING Imaging Routine Bloating Gastroparesis Expected: 10/23/2024, Expires: 10/23/2025 [facility] Comment on above: Expected: 10/23/2024, Expires: 5 Start: 10-23-2024 End: 10-23-2025 PANCREATIC ELASTASE, STOOL PANCREATIC ELASTASE, STOOL Fluids Routine Chronic diarrhea Expected: 10/23/2024, Expires: 10/23/2025 [facility] Comment on above: Expected: 10/23/2024, Expires: 5 Start: 10-23-2024 Tobacco Screening Tobacco Screening [facility] Start: 10-10-2024 BP Controlled (<130/80) BP Controlled (<130/80) [facility] [facility] Start: 07-12-2024 End: 07-12-2024 Professional / ancillary services management 07/12/2024 1:30 PM EDT Ancillary Procedure [facility] [address] [place] [phone] [facility] Start: 07-11-2024 End: 07-11-2025 US Soft Tissue Palpable Mass US Soft Tissue Palpable Mass Imaging Routine Soft tissue mass Expected: 07/11/2024, Expires: 07/11/2025 [facility] Work Phone: Comment on above: Expected: 07/11/2024, Expires: Start: 07-07-2024 COVID-19 VACCINE ( season) COVID-19 VACCINE ( season) [facility] Start: 07-07-2024 Covid-19 Vaccine ( season) Covid-19 Vaccine ( season) [facility] Start: 07-07-2024 Influenza vaccination [facility] Start: 06-27-2024 End: 06-27-2024 Patient encounter procedure 06/27/2024 9:45 AM EDT Office Visit [facility] [address] [place] [phone] Amezquita, Sidney H, DPM [address] [place] [address] Arrived [facility] Comment on above: Arrived Start: 05-31-2024 Administration of varicella zoster vaccine Zoster (Shingles) Vaccine (2 of 2) [facility] Start: 05-31-2024 Zoster vaccine hzv live for subcutaneous use ZOSTER (SHINGLES) VACCINE (2 of 2) [facility] Start: 04-18-2024 End: 04-18-2024 Patient encounter procedure 04/18/2024 1:30 PM EDT Office Visit [facility] [address] [place] [phone] Pauline Christensen MD [address] [place] [address], [address] [place] [phone] [facility] Start: 01-10-2024 End: 01-10-2024 Patient encounter procedure 01/10/2024 12:45 PM EST Office Visit [facility] - ENT [address] [place] [address], [address] [place] [phone] Cullen Dawkins MD [address] [place] [address] [address] [place] [id number] [facility] Start: 01-02-2024 End: 01-02-2024 Admission to same day surgery center 01/02/2024 11:00 AM EST - 01/02/2024 3:30 PM EST Surgery [facility] - Surgery [address] [place] [address] Cullen Dawkins MD [address] [place] [address] [address] [place] [id number] INSERTION STIMULATOR NERVE HYPOGLOSSAL [64326 (CPT )] [facility] - Surgery Comment on above: INSERTION STIMULATOR NERVE HYPOGLOSSAL [ 02435 (CPT )] Start: 01-02-2024 End: 01-02-2024 INSERTION STIMULATOR NERVE HYPOGLOSSAL INSERTION STIMULATOR NERVE HYPOGLOSSAL CHUCKIE (obstructive sleep apnea) 01/02/2024 11:00 AM EST [facility] Start: 01-02-2024 Subsequent hospital visit by physician 01/02/2024 11:00 AM EST Hospital Encounter [facility] - Surgery [address] [place] [place] [address] Cullen Dawkins MD [address] [facility] [address] [place] [address] [facility] - Surgery Start: 11-06-2023 Behavioral Health Screening Behavioral Health Screening [facility] Start: 11-06-2023 Depression Assessment Depression Assessment [facility] Start: 09-27-2023 End: 12-27-2023 Bacteria identified in Urine by Culture URINE CULTURE Microbiology Routine Burning with urination Expected: 09/27/2023, Expires: 12/27/2023 [facility] Work Phone: Comment on above: Expected: 09/27/2023, Expires: Start: 09-14-2023 Screening for malignant neoplasm of breast MAMMOGRAM [facility] Start: 08-01-2023 FUV, Provider: Dipti Anaya, Status: Pen, Time: 11:00 AM FUV, Provider: Dipti Anaya, Status: Pen, Time: 11:00 AM [facility] Work Phone: Start: 07-07-2023 Covid-19 Vaccine ( season) Covid-19 Vaccine () [facility] Start: 07-07-2023 Influenza vaccination [facility] Start: 07-07-2023 Influenza vaccination given INFLUENZA VACCINE (#1) [facility] Start: 06-05-[address] [facility] Start: 04-22-2023 BP CONTROLLED (<130/80) BP CONTROLLED (<130/80) [facility] [place] [facility] Start: 03-14-2023 BP CONTROLLED (<130/80) BP CONTROLLED (<130/80) [facility] Start: 02-18-2023 BP CONTROLLED (<130/80) BP CONTROLLED (<130/80) [facility] Start: 02-08-2023 BP CONTROLLED (<130/80) BP CONTROLLED (<130/80) [facility] Start: 01-18-2023 BP CONTROLLED (<130/80) BP CONTROLLED (<130/80) [facility] Start: 11-06-2022 DEPRESSION ASSESSMENT DEPRESSION ASSESSMENT [facility] Start: 09-22-[address] [facility] Start: 08-02-2022 End: 08-25-2023 Ct abdomen & pelvis w/contrast material CT ABD/PEL W IVCON Radiology Routine Periumbilical abdominal pain Expected: 08/02/2022, Expires: 08/25/2023 [facility] Work Phone: Comment on above: Expected: 08/02/2022, Expires: 3 Start: 07-07-2022 Influenza vaccination [facility] Start: 06-28-2022 Mammography [facility] Start: 2022 Administration of varicella zoster vaccine Zoster (Shingles) Vaccine (1 of 2) [facility] Start: 2022 COVID-19 VACCINE (4 - Booster for Pfizer series) COVID-19 VACCINE (4 - Booster for Pfizer series) [facility] Start: 2022 SHINGRIX VACCINE (1 of 2) SHINGRIX VACCINE (1 of 2) [facility] Start: 2022 Zoster vaccine hzv live for subcutaneous use ZOSTER (SHINGLES) VACCINE (1 of 2) [facility] Start: 04-01-2022 End: 06-01-2022 CBC W Auto Differential panel - Blood CBC + DIFF Lab Routine Follow-up examination after colorectal surgery Expected: 04/01/2022, Expires: 06/01/2022 [facility] Work Phone: Comment on above: Expected: 04/01/2022, Expires: 2 Start: 04-01-2022 End: 06-01-2022 Comprehensive metabolic 2000 panel - Serum or Plasma COMP METABOLIC PANEL Lab Routine Follow-up examination after colorectal surgery Expected: 04/01/2022, Expires: 06/01/2022 [facility] Work Phone: Comment on above: Expected: 04/01/2022, Expires: 2 Start: 04-01-2022 End: 06-01-2022 TYPE AND SCREEN,30 DAY TYPE AND SCREEN,30 DAY Blood Bank Routine Follow-up examination after colorectal surgery Expected: 04/01/2022, Expires: 06/01/2022 [facility] Work Phone: Comment on above: Expected: 04/01/2022, Expires: 2 Start: 01-19-2022 COVID-19 VACCINE (4 - Booster for Pfizer series) COVID-19 VACCINE (4 - Booster for Pfizer series) [facility] Start: 01-19-2022 COVID-19 VACCINE (4 - Pfizer series) COVID-19 VACCINE (4 - Pfizer series) [facility] Start: 11-06-2021 DEPRESSION ASSESSMENT DEPRESSION ASSESSMENT [facility] Start: 07-07-2021 Influenza vaccination INFLUENZA (#1) [facility] Start: 03-24-2021 Screening for malignant neoplasm of colon COLORECTAL CANCER SCREENING DISCUSSION [facility] Start: 04-05-2020 Screening for malignant neoplasm of breast MAMMOGRAM SCREENING DISCUSSION [facility] Start: 2017 COLOGUARD (FIT-DNA) COLOGUARD (FIT-DNA) [facility] Start: 2017 Colonoscopy COLONOSCOPY [facility] Start: 2017 COLORECTAL CANCER SCREENING COLORECTAL CANCER SCREENING [facility] Start: [address] COLONOGRAPHY [facility] Start: 2017 FECAL OCCULT BLOOD FECAL OCCULT BLOOD [facility] Start: 2017 LIPID SCREEN LIPID SCREEN [facility] Start: 2017 Screening for malignant neoplasm of colon [facility] Start: 2017 SIGMOIDOSCOPY SIGMOIDOSCOPY [facility] Start: 2012 Lipid panel LIPID SCREENING [facility] Start: 2012 Mammography MAMMOGRAM [facility] Start: 10-11-2008 Hepatitis B vaccination HEP B VACCINE (3 of 3 - 19+ 3-dose series) [facility] Start: 10-11-2008 Hepatitis B Vaccine (3 of 3 - 19+ 3-dose series) Hepatitis B Vaccine (3 of 3 - 19+ 3-dose series) [facility] Start: 2002 HPV TESTING HPV TESTING [facility] Start: 2002 Screening for malignant neoplasm of cervix HPV Testing [facility] Start: 1993 PAP TESTING PAP TESTING [facility] Start: 1993 Screening for malignant neoplasm of cervix [facility] Start: 1991 Urine microalbumin profile [facility] Start: 1990 Adult BMI Follow Up Plan Adult BMI Follow Up Plan [facility] Start: 1990 ANNUAL PCP TEAM CHRONIC DISEASE VISIT ANNUAL PCP TEAM CHRONIC DISEASE VISIT [facility] Start: 1990 ANNUAL WELLNESS VISIT ANNUAL WELLNESS VISIT [facility] Start: 1990 Anxiety Screening Anxiety Screening [facility] Start: 1990 BP CONTROLLED (<130/80) BP CONTROLLED (<130/80) [facility] Start: 1990 Depression Screening Depression Screening [facility] Start: 1990 HEPATITIS C SCREENING HEPATITIS C SCREENING [facility] Start: 1990 Hepatitis C screening Hepatitis C Screening [facility] Start: 1990 HIV SCREENING HIV SCREENING [facility] Start: 1990 HIV screening HIV Screening [facility] Start: 1987 HIV screening HIV SCREENING DISCUSSION [facility] Start: 1984 Adult depression screening assessment DEPRESSION SCREENING [facility] Start: 1984 Depression screening using PHQ-9 (Patient Health Questionnaire 9) score DEPRESSION SCREENING [facility] Start: 1978 PNEUMOCOCCAL (1 - PCV) PNEUMOCOCCAL (1 - PCV) [facility] Start: 1978 Pneumococcal vaccination Pneumococcal Vaccine (1 - PCV) [facility] Start: 1972 HEPATITIS B (1 of 3 - 3-dose series) HEPATITIS B (1 of 3 - 3-dose series) [facility] Start: 1972 Hepatitis B Vaccine (1 of 3 - 3-dose series) Hepatitis B Vaccine (1 of 3 - 3-dose series) [facility] Start: 1972 Hepatitis C screening HEPATITIS C VIRUS SCREENING [facility] Start: 1972 HPV/COTEST HPV/COTEST [facility] Start: 1972 Screening for malignant neoplasm of cervix [facility] 12 lead ECG EKG 12 lead ECG REYNA 08/12/2023 12:28 AM [facility] Work Phone: 24 hour urine measurement [facility] Albumin [Mass/volume ] in Serum or Plasma [facility] Albumin/Globulin ratio [facility] Chromatin Ab [Units/volume] in Serum or Plasma [facility] Complement C3 [Mass/volume] in Serum or Plasma [facility] Complement C4 [Mass/volume] in Serum or Plasma [facility] CT Abdomen and Pelvi s W contrast IV CT Abdomen / Pelvis With IV Contrast ONLY Imaging STAT 08/12/2023 5:42 AM [facility] End: 01-12-2024 EGD - THERAPEUTIC, EUS, OR TUBE INTERVENTIONS EGD - THERAPEUTIC, EUS, OR TUBE INTERVENTIONS Endoscopy Routine Gastroparesis 1 Occurrences starting 01/11/2023 until 01/12/2024 [facility] Work Phone: Comment on above: 1 Occurrences starting 01/11/2023 until 01/12/2024 Electromyography [facility] Electrophoresis: [id number] [facility] Electrophoresis: [id number] [facility] Electrophoresis: beta-globulin [facility] Electrophoresis: jenifer ma globulin [facility] FAT, FECAL QUAL FAT, FECAL QUAL Lab Routine Diarrhea due to malabsorption Ordered: 03/15/2023 [facility] Work Phone: Comment on above: Ordered: 03/15/2023 End: 10-11-2023 Gi transit & pres ravinder wireless capsule w/interp CAPSULE ENDOSCOPY SMART Endoscopy Routine Gastroparesis 1 Occurrences starting 10/11/2022 until 10/11/2023 [facility] Work Phone: Comment on above: 1 Occurrences starting 10/11/2022 until 10/11/2023 Globulin [Mass/volum e] in Serum [facility] Homogenous nuclear A b pattern [Titer] in Serum [facility] Hydrogen breath test HYDROGEN (H 2) BREATH TEST GI/Bronch Routine Chronic abdominal pain Bloating Ordered: 08/09/2024 [facility] Comment on above: Ordered: 08/09/2024 IgA [Mass/volume] in Serum or Plasma [facility] IgG [Mass/volume] in Serum or Plasma [facility] IgM [Mass/volume] in Serum or Plasma [facility] Immunofixation for Urine [facility] Lupus anticoagulant [Interpretation] in Platelet poor plasma [facility] Measurement of monoclonal protein concentration [facility] MR Cervical spine WO contrast [facility] Myoglobin [Mass/volu me] in Serum or Plasma [facility] Nuclear Ab [Titer] i n Serum [facility] End: 12-17-2023 PAP TITRATION PSG (CPAP, BIPAP, ASV) PAP TITRATION PSG (CPAP, BIPAP, ASV) Procedures Routine CHUCKIE (obstructive sleep apnea) 1 Occurrences starting 11/17/2022 until 12/17/2023 [facility] Work Phone: Comment on above: 1 Occurrences starting 11/17/2022 until 12/17/2023 Patient Education [facility] Work Phone: Patient referral [facility] Work Phone: Protein [Mass/volume ] in Serum or Plasma [facility] Protein [Mass/volume ] in Urine [facility] Reagin Ab [Presence] in Serum by RPR [facility] SARS-CoV-2 (COVID-19 ) RNA [Presence] in Respiratory specimen by JOSÉ MIGUEL with probe detection SELF CHECK COVID Microbiology Routine Follow-up examination after colorectal surgery Ordered: 02/09/2022 [facility] Work Phone: Comment on above: Ordered: 02/09/2022 Serum immunofixation [facility] End: 11-30-2023 SIGMOIDOSCOPY SIGMOIDOSCOPY Endoscopy Routine Chronic idiopathic constipation 1 Occurrences starting 11/30/2022 until 11/30/2023 [facility] Work Phone: Comment on above: 1 Occurrences starting 11/30/2022 until 11/30/2023 SURG PATH REQUEST [facility] Comment on above: Release Upon Ordering for 1 Occurrences starting 04/12/2024, 1 completed Thrombin time [facility] Thyroglobulin Ab [Units/volume] in Serum or Plasma [facility] Thyroperoxidase Ab [Units/volume] in Serum or Plasma [facility] End: 08-12-2023 Troponin I.cardiac [Mass/volume] in Serum or Plasma Troponin I (One time) Lab Timed Once for 1 Occurrences starting 08/12/2023 until 08/12/2023 [facility] Work Phone: Comment on above: Once for 1 Occurrences starting 08/12/20 until 08/12/2023 URODYNAMICS [facility] URODYNAMICS I Procedures Routine Incomplete bladder emptying Urinary urgency Urinary frequency Nocturia Ordered: 07/31/2023 [facility] Work Phone: Comment on above: Ordered: 07/31/2023 XR Shoulder - bilate ral Views [facility] Immunizations Immunization Date Immunization Notes Care Provider [facility] 07-01-2024 influenza, injectabl e, madin shaneka canine kidney, preservative free Eliceo Gómez DO Work Phone: [facility] 05-21-2024 Hepatitis B vaccine (recombinant), CpG adjuvanted Sidney Amezquita DPM Work Phone: [facility] 05-21-2024 meningococcal oligosaccharide (groups A, C, Y and W-135) diphtheria toxoid conjugate vaccine (MCV4O) Sidney MERCADOM Work Phone: [facility] 04-05-2024 zoster vaccine recombinant Sidney Amezquita DPM Work Phone: [facility] 04-05-2024 zoster vaccine, unspecified formulation Milagros Franco MD, PhD Work Phone: [facility] 12-21-2023 Influenza, injectabl e, Madin Shaneka Canine Kidney, preservative free, quadrivalent Sidney Amezquita DPM Work Phone: [facility] 12-21-2023 influenza virus vaccine, unspecified formulation [facility] 08-17-2022 influenza, injectabl e, quadrivalent, preservative free Sidney Amezquita DPM Work Phone: [facility] 08-17-2022 influenza virus vaccine, unspecified formulation Nelsy Chávez APRN.DOOR INSTALLER Work Phone: [facility] 11-24-2021 Pfizer-BioNTech COVID-19 Vacc 30 MCG/0.3ML Intramuscular Suspension Eliceo Gómez Work Phone: [facility] [employer] [address] DO Work Phone: 08-19-2021 KENALOG - 10 mg Ericahero keys Other [employer] Other 05-11-2021 Pfizer-BioNTech COVID-19 Vacc 30 MCG/0.3ML Intramuscular Suspension Eliceo Gómez Work Phone: [facility] [employer] [address] DO Work Phone: 05-10-2021 Pfizer Purple Cap SARS-CoV-2 Vaccination Sidney Amezquita DPM Work Phone: [facility] 04-20-2021 Pfizer-BioNTech COVID-19 Vacc 30 MCG/0.3ML Intramuscular Suspension Elicoe Gómez Work Phone: [facility] [employer] [address] DO Work Phone: 04-19-2021 Pfizer Purple Cap SARS-CoV-2 Vaccination Sidney Amezquita DPM Work Phone: [facility] 09-02-2020 influenza, injectabl e, quadrivalent, preservative free Eliceo Gómez Work Phone: [facility] [employer] [address] DO Work Phone: 08-06-2020 influenza, injectabl e, quadrivalent, preservative free Eliceo Gómez Work Phone: [facility] 06-22-2020 tetanus toxoid, redu nayeli diphtheria toxoid, and acellular pertussis vaccine, adsorbed Eliceo Gómez Work Phone: [facility] Zova DO Work Phone: 02-01-2020 Toradol per 15 mg Beto turpin Other [employer] Other 08-20-2019 influenza, injectabl e, quadrivalent, preservative free Sidney Amezquita DPM Work Phone: [facility] 07-15-2018 influenza, seasonal, injectable, preservative free Eliceo Gómez Work Phone: [facility] Zova DO Work Phone: 07-14-2016 Rocephin 500 mg Beto ellis Other [employer] Other 05-12-2008 hepatitis B vaccine, adult dosage Eliceo Gómez Work Phone: [facility] [employer] [address] DO Work Phone: 04-11-2008 hepatitis B vaccine, adult dosage Eliceo Gómez Work Phone: [facility] [employer] DO Work Phone: Payers Date Payer Category Payer Medicare [id number] 2024 Medicare [id number] 2024 Medicare (Managed Care) 1.2. [id number] 2024 Medicare [id number] 2024 Private Health Insurance [id number] 2024 Private Health Insurance 2024 Self-pay [id number] 2022 Unknown 2022 Medicaid [place] MEDICA[place] [id number] 2021 Medicaid [employer] MED[employer] ID [employer] MEDICAID [id number] 2021-Present [phone] [address] [place] [address] Medicaid [id number] 2019 Medicaid [id number] [id number]. [id number] 1972 Unknown [id number] 2.16.840.1.800736.3.579.2. 176 1972 Unknown [id number] 2.16.840.1.907394.3.579.2. 593 1972 Unknown [id number] 2.16.840.1.248912.3.579.2. 593 1972 Unknown [id number] 2.16.840.1.324044.3.579.2. 593 1972 Unknown [id number] 2.16.840.1.342433.3.579.2. 593 1972 Unknown [id number] 2.16.840.1.224001.3.579.2. 593 1972 Unknown [id number] 2.16.840.1.233562.3.579.2. 593 1972 Unknown [id number] 2.16.840.1.899882.3.579.2. 593 1972 Unknown [id number] 2.16.840.1.336167.3.579.2. 593 1972 Unknown [id number] 2.16.840.1.089435.3.579.2. 593 1972 Unknown [id number] 2.16.840.1.748531.3.579.2. 593 1972 Unknown [id number] 2.16.840.1.041856.3.579.2. 593 1972 Unknown [id number] 2.16.840.1.034530.3.579.2. 593 1972 Unknown [id number] 2.16.840.1.006117.3.579.2. 593 1972 Unknown [id number] 2.16.840.1.915437.3.579.2. 593 1972 Unknown [id number] 2.16.840.1.676107.3.579.2. 593 1972 Unknown [id number] 2.16.840.1.607913.3.579.2. 593 1972 Unknown [id number] 2.16.840.1.716605.3.579.2. 593 1972 Unknown [id number] 2.16.840.1.756100.3.579.2. 297 1972 Unknown [id number] 2.16.840.1.916018.3.579.2. 297 1972 Unknown [id number] 2.16.840.1.753615.3.579.2. 356 1972 Unknown [id number] 2.16.840.1.143896.3.579.2. 356 1972 Unknown [id number] 2.16.840.1.695888.3.579.2. 356 1972 Unknown [id number] 2.16.840.1.927194.3.579.2. 1285 1972 Unknown [id number] 2.16840.1.430840.3.579.2. 1285 1972 Unknown [id number] 2.840.1.867242.3.579.2. 1285 1972 Unknown [id number] 2.16.840.1.420334.3.579.2. 128 1972 Unknown [id number] 2.16.840.1.338191.3.579.2. 1285 1972 Unknown [id number] 2.16.840.1.960839.3.579.2. 1285 1972 Unknown [id number] 2.16840.1.087369.3.579.2. 128 1972 Unknown [id number] 2.16.840.1.092558.3.579.2. 128 1972 Unknown [id number] 2.16.840.1.717039.3.579.2. 128 1972 Unknown [id number] 2.16.840.1.428390.3.579.2. 594 1972 Unknown [id number] 2.16840.1.624559.3.579.2. 594 1972 Unknown [id number] 2.16.840.1.598430.3.579.2. 594 1972 Unknown [id number] 2.840.1.553186.3.579.2. 594 1972 Unknown [id number] 2.840.1.271305.3.579.2. 594 1972 Unknown [id number] 2.840.1.729191.3.579.2. 594 1972 Unknown [id number] 2.840.1.185377.3.579.2. 594 1972 Unknown [id number] 2.840.1.798894.3.579.2. 594 1972 Unknown [id number] 2.840.1.543625.3.579.2. 594 1972 Unknown [id number] 2.840.1.814249.3.579.2. 594 1972 Unknown [id number] 2.840.1.692561.3.579.2. 1258 1972 Unknown [id number] .840.1.197033.3.579.2. 1258 1972 Unknown [id number] 2.840.1.663972.3.579.2. 1258 1972 Unknown [id number] 2840.1.515355.3.579.2. 1258 1972 Unknown [id number] 2.840.1.595629.3.579.2. 1258 1972 Unknown [id number] 2.840.1.438616.3.579.2. 1258 1972 Unknown [id number] 2.840.1.993455.3.579.2. 1258 1972 Unknown [id number] 2.840.1.192950.3.579.2. 1258 1972 Unknown [id number] 2.840.1.592138.3.579.2. 1258 1972 Unknown [id number] 2.840.1.096228.3.579.2. 1258 1972 Unknown [id number] 2.16.840.1.000090.3.579.2. 1258 1972 Unknown [id number] 2.840.1.198402.3.579.2. 1258 1972 Unknown [id number] 2.840.1.730847.3.579.2. 1258 1972 Unknown [id number] 2.840.1.460574.3.579.2. 1258 1972 Unknown [id number] 2.840.1.213413.3.579.2. 1258 1972 Unknown [id number] 2.840.1.653257.3.579.2. 1258 1972 Unknown [id number] 2.840.1.574318.3.579.2. 1258 1972 Unknown [id number] 2.840.1.377254.3.579.2. 1258 1972 Unknown [id number] 2.840.1.389416.3.579.2. 1258 1972 Unknown [id number] 2.840.1.059969.3.579.2. 1258 1972 Unknown [id number] 2.840.1.115075.3.579.2. 1258 1972 Unknown [id number] 2.840.1.273882.3.579.2. 1258 1972 Unknown [id number] 2.840.1.189604.3.579.2. 1258 1972 Unknown [id number] 2.840.1.401674.3.579.2. 1258 1972 Unknown [id number] 2.16.840.1.407550.3.579.2. 1258 1972 Unknown [id number] 2.16.840.1.887005.3.579.2. 1258 1972 Unknown [id number] 2.16.840.1.898327.3.579.2. 1258 1970 Unknown [id number] 2.16.840.1.220145.3.579.2. 1258 1970 Unknown [id number] 2.16.840.1.962292.3.579.2. 1258 1972 Unknown [id number] 2.16.840.1.608539.3.579.2. 1972 Unknown [id number] 2.16.840.1.338977.3.579.2. 1972 Unknown [id number] 2.16.840.1.910737.3.579.2. 1972 Unknown [id number] 2.16.840.1.255272.3.579.2. 1972 Unknown [id number] 2.16.840.1.226809.3.579.2. 1972 Unknown [id number] 2.16.840.1.251449.3.579.2. 1972 Unknown [id number] 2.16.840.1.184423.3.579.2. 1972 Unknown [id number] 2.16.840.1.482819.3.579.2. 1972 Unknown [id number] 2.16.840.1.739593.3.579.2. 1957 Medicaid [id number] 1957 Unknown [id number] Unknown [employer] [id number] Unknown [id number] 2.16.840.1.112922.3.579.2. 531 Unknown [id number] 2.16.840.1.750171.3.579.2. 531 Unknown [id number] 2.16.840.1.864725.3.579.2. 531 Unknown [id number] 2.16.840.1.020290.3.579.2. 531 Unknown [id number] 2.16.840.1.497532.3.579.2. 531 Unknown [id number] 2.16.840.1.293899.3.579.2. 531 Unknown [id number] 2.16.840.1.990828.3.579.2. 531 Unknown [id number] 2.16.840.1.727177.3.579.2. 531 Unknown [id number] 2.16.840.1.345605.3.579.2. 531 Unknown [id number] 2.16.840.1.938249.3.579.2. 531 Unknown [id number] 2.16.840.1.619716.3.579.2. 531 Social History Date Type Detail Facility Start: 10-08-2020 End: 10-24-2024 Tobacco smoking status KYIS Never smoked tobacco [facility] Start: 10-08-2020 End: 09-01-2022 Tobacco use and exposure Smokeless tobacco non-user [facility] Start: 01-04-2022 End: 01-20-2025 Alcohol intake Lifetime non-drinker (finding) [facility] Start: 10-08-2020 History SDOH Alcohol Frequency 1 [facility] Start: 1970 Sex Assigned At Female C [facility] Start: 08-30-2020 End: 07-26-2022 Exposure to SARS-CoV-2 (event) Not sure [facility] Start: 10-08-2020 End: 11-23-2020 Sex Assigned At [facility] Start: 10-08-2020 End: 11-23-2020 No alcohol use No alcohol use [facility] Comment on above: 3 TEA WEEK; How often to you hav e a drink containing alcohol? Never [facility] Average Number of Drinks Not on file [facility] Start: 07-28-2020 Gender identity Identifies as female gender (finding) [facility] Start: 07-03-2021 Sexual orientation Heterosexual (keon ribeiro) [facility] Start: 06-05-2023 End: 06-05-2023 Tobacco smoking status NHIS Smoker (finding) [facility] Start: 1970 Sex Assigned At Not on file [facility] Tobacco smoking stat us [facility] Tobacco smoking consumption unknown [facility] Within the last year , [...] Alcohol Comment caffeine: 1-2 cups per day [facility] Start: 06-11-2015 End: 09-16-2024 Sex Female (finding) [facility] Start: 01-10-2024 End: 01-18-2024 Alcoholic beverage intake Ex-drinker (finding) [facility] Medical Equipment Procedure Code Equipment Code Equipment Original Text Equipment Identifier Dates Fibertak [place] Self-Punching Knotless 2.6mm W/No 5 Suture [id number] Start: 10-14-2020 Fibertak [place] Knotless 2.6mm [id number] Start: 10-14-2020 [place] Swivelock C 4.75mm Biocomposite Peek 19.1mm Suture Closed Eyelet - [id number] Start: 10-14-2020 Sling Gynecare T vt Exact Gynecological Stress Urinary Incontinence - [id number] Start: 12-24-2021 DISC CERVICAL 13 X15X5H MOBI-C FDA Start: 09-20-2017 DISC CERVICAL 13 X15X5H MOBI-C FDA Start: 09-20-2017 DISC CERVICAL 13 X15X5H MOBI-C FDA Start: 09-20-2017 DISC CERVICAL 13 X15X5H MOBI-C FDA Start: 09-20-2017 DISC CERVICAL 13 X15X5H MOBI-C FDA Start: 09-20-2017 Lead Intrstim Mr i 28cm - [id number] Start: 01-26-2024 Interstim X Rech arge Free Neurostimulator - [id number] Start: 01-26-2024 DISC CERVICAL 13 X15X5H MOBI-C FDA Start: 09-20-2017 DISC CERVICAL 13 X15X5H MOBI-C FDA Start: 09-20-2017 DISC CERVICAL 13 X15X5H MOBI-C FDA Start: 09-20-2017 DISC CERVICAL 13 X15X5H MOBI-C FDA Start: 09-20-2017 DISC CERVICAL 13 X15X5H MOBI-C FDA Start: 09-20-2017 DISC CERVICAL 13 X15X5H MOBI-C FDA Start: 09-20-2017 Generator Nrstm - [id number] Start: 01-02-2024 Lead Ns Respirat ory - [id number] Start: 01-02-2024 Lead Nrstm Inspr 3 Elect Cuf Tnl Boni Strl Lf - [id number] - [id number] Start: 01-02-2024 DISC CERVICAL 13 X15X5H [...] the medication in the mornings. Please contact [facility] 02-24-2025 Miscellaneous Notes Formattin g of this note might be different from the original. Pt would like to know if WDB can increase her Estradiol dose because she is having more hot flashes during the daytime. She takes the medication in the mornings. Please contact documented in this encounter [facility] 12-10-2024 Miscellaneous Notes Formattin g of this [...] preferred: 30 day [facility] [place] If already on preferred pharmacy list - [...] office about this. Patient's callback# if needed: [phone]. Patient stated she no longer has [place] and now has the following (informed patient we don't have this on our covered/non-covered list so I provided her with our tax ID# to check with insurance): Insurance Name: [employer] Medicare Dual Complete ID#: [id number] Grp#: [id number] RxGrp#: [id number] RxBIN#: [id number] RxPCN#: [id number] Provider Service Line phone#: [phone] Refill request for Emgality 120mg/ml verified in refill encounter 05/14/24. Pended to Dr. Christensen for review and signature Start date from last refill: 05/15/24 Next follow up: not yet scheduled documented in this encounter [employer] 12-10-2024 Telephone encount er Note Received call [...] preferred: 30 day [facility] [place] If already on preferred pharmacy list - [...] office about this. Patient's callback# if needed: [phone]. Patient stated she no longer has [place] Medicaid and now has the following (informed patient we don't have this on our covered/non-covered list so I provided her with our tax ID# to check with insurance): Insurance Name: [employer] Medicare Dual Complete ID#: [id number] Grp#: [id number] RxGrp#: [id number] RxBIN#: [id number] RxPCN#: [id number] Provider Service Line phone#: [phone] [employer] 12-10-2024 Telephone encount er Note Refill request for Emgality 120mg/ml verified in refill encounter 05/14/24. Pended to Dr. Christensen for review and signature Start date from last refill: 05/15/24 Next follow up: not yet scheduled [facility]-20[facility]2024 Evaluation note Diagnosis Onset Date Resolution Cervical radiculopathy acute Ja chrisnew limerick 2024 1:13pm [facility] Work Phone: 1(953) 579-295201-14-2025 History of Present illness Narrative* STELLA Espinal [...] 1 year, skin check [place] [id number] Nuclear medicine [facility] [address] Nuclear Medicine Report Signed Patient: Mary Leal MR#: [id number] : 1970 Acct:[id number] Age/Sex: 54 / F ADM Date: 5 Loc: PR Room: Type: [facility] Attending Dr: Padmaja Llamas MD Copies to: Quinton Melendez Jr, DO Na Li, MD~ Ordering Provider: Padmaja Llamas MD Date of Service: 11/14/24 NM/PR gastric emptying study: R14.0 K31.84 GASTRIC EMPTYING [...] of the radiotracer remained within the stomach. PR/PR gastric emptying study IMPRESSION: No scintigraphic evidence of gastroparesis. Impression dictated by: Quinton Melendez Jr., D.O.11/14/2024 1:54 PM Dictation Location: [place] [address] Transcribed By: [facility] 11/14/24 1354 Dictated By: Quinton Melendez Jr, DO 11/14/24 1354 Signed By: 11/14/24 [facility]01-07-2025 History of Present illness Narrative * Wendy [...] to the clinic 19 days status post relief pharmacist surgery. Eating a regular diet with difficulty. [...] Review Audit Reviewed by Nida Toro MA (Domestic Maid) on 11/12/24 at 0827 Medication Order Taking? Sig Documenting Provider Last Dose Status Lolis Maintena 300 MG injection syringe [id number] inject INTRAMUSCULARLY ONCE A MONTH (BRING TO OFFICE FOR PROVIDER TO ADMINISTER) Active albuterol HFA 90 mcg/act inhaler [id number] Inhale 2 puffs every 4 (four) hours if needed for wheezing Eliceo Gómze DO 10/19/24 7239 atenolol (Tenormin) 50 MG tablet [id number] Take 1 tablet (50 mg) by mouth Daily Eliceo Gómez DO Active cholecalciferol (Vitamin D-3) 125 MCG (5000 UT) capsule [id number] Take 125 mcg by mouth Daily Dipti Acevedo, DO Active colestipol (Colestid) 1 g tablet [id number] Take 1 g by mouth in the morning and 1 g in the evening. Dipti Acevedo DO Active Daridorexant HCl (Quviviq) 50 MG tablet [id number] Take 50 mg by mouth at bedtime Eliceo Gómez DOActive estradiol (Estrace) 0.1 MG/GM vaginal cream [id number] APPLY 0.5G VAGINALLY TWICE WEEKLY. Dipti Acevedo DO Active estradiol (Estrace) 1 MG tablet [id number] Take 1 tablet (1 mg) by mouth Daily Dipti Acevedo DO Active ferrous sulfate 325 (65 Fe) MG tablet [id number] Take 325 mg by mouth every other day Ron King NP Active fluvoxaMINE (Luvox) 50 MG tablet [id number] Take 50 mg by mouth at bedtime Dipti Acevedo DO Active galcanezumab (Emgality) 120 MG/ML auto-injector [id number] Inject 120 mg under the skin every 30 (thirty) days Dipti Acevedo DO Active L-Theanine 200 MG capsule [id number] Take 1 capsule by mouth Daily Carmen Cruz MD Active losartan (Cozaar) 25 MG tablet [id number] Take 1 tablet (25 mg) by mouth Daily Eliceo Gómez DO Active methylphenidate ER (Concerta) 54 MG CR tablet [id number] Take 54 mg by mouth Daily Eliceo Gómez DO Active mirabegron ER (Myrbetriq) 50 MG 24 hr tablet [id number] Take 1 tablet (50 mg) by mouth at bedtime Do not crush, chew, or split. Dipti Acevedo DO Active Multiple Vitamin (Daily-Elisa Multivitamin) tablet [id number] Yes Take 1 tablet by mouth Daily Melina Acevedo DO Active omeprazole (PriLOSEC) [address] capsule [id number] Take 40 mg by mouth in the morning. Active Quviviq 25 MG tablet [id number] TAKE 1 TABLET BY MOUTH BEDTIME ( NEEDED) FOR SLEEP Dipti Acevedo DO Active rOPINIRole (Requip) 1 MG tablet [id number] Take 1 tablet (1 mg) by mouth in the morning. Eliceo Gómez DO Active rOPINIRole (Requip) 2 MG tablet [id number] Take 1 tablet (2 mg) by mouth at bedtime Eliceo Gómez DO Active Trelegy Ellipta 100-62.5-25 MCG/ACT aerosol powder [id number] INHALE 1 PUFF BY MOUTH DAILY Eliceo Gómez DO Active triamcinolone (Kenalog) 0.1 % cream [id number] Apply topically 2 (two) times a day Dipti Acevedo DO Active Past Medical History: Diagnosis Date ADHD (attention deficit hyperactivity disorder) ([facility]/HCC) 1994 Asthma ([facility]/HCC) Basal cell carcinoma right chest Colon polyp Compressed cervical disc Cystocele 2021 Depression (CMS/HCC) Difficulty walking 05/12/23 Eczema 2022 Endometriosis 2015 Fissure, anal Gastroparesis GERD (gastroesophageal reflux disease) 1995 Hormone disorder 2019 Hypertension ([facility]/HCC) 2000 Migraine ([facility]/HCC) OCD (obsessive compulsive disorder) ([facility]) Panic attack ([facility]) 04/28 Rectocele 2021 RLS (restless [...] reconstruction FOOT TENDON SURGERY 11/13/2023 HYSTERECTOMY 2015 [facility] ER INTRAUTERINE DEVICE INSERTION 2013 Mirena OTHER SURGICAL [...] and rhythm Lungs: b/l clear Female genitalia: Brisket Puller in 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 documented in this encounterSullivan [facility] HospitalOmrfqsivwu08-18-9678 History of Present illness Narrative* Wendy Colon [...] to the clinic 4 days status post relief pharmacist surgery. Eating a regular diet without difficulty. [...] Review Audit Reviewed by Nida Toro MA (Domestic Maid) on 10/28/24 at 1502 Medication Order Taking? Sig Documenting Provider Last Dose Status Nimolirupal Maintena 300 MG injection syringe [id number] inject INTRAMUSCULARLY ONCE A MONTH (BRING TO OFFICE FOR PROVIDER TO ADMINISTER) Active albuterol HFA 90 mcg/act inhaler [id number] Inhale 2 puffs every 4 (four) hours if needed for wheezing Eliceo Gómez DO 10/19/24 2359 atenolol (Tenormin) 50 MG tablet [id number] Take 1 tablet (50 mg) by mouth Daily Eliceo Gómez DO Active cholecalciferol (Vitamin D-3) 125 MCG (5000 UT) capsule [id number] Take 125 mcg by mouth Daily Dipti Acevedo DO Active colestipol (Colestid) 1 g tablet [id number] Yes Take 1 g by mouth in the morning and 1 g in the evening. Dipti Acevedo DO Active Daridorexant HCl (Quviviq) 50 MG tablet [id number] Take 50 mg by mouth at bedtime Eliceo Gómez DOActive Discontinued 10/22/24 0842 estradiol (Estrace) 0.1 MG/GM vaginal cream [id number] APPLY 0.5G VAGINALLY TWICE WEEKLY. Dipti Acevedo DO Active estradiol (Estrace) 1 MG tablet [id number] Take 1 tablet (1 mg) by mouth Daily Dipti Acevedo DO Active ferrous sulfate 325 (65 Fe) MG tablet [id number] Take 325 mg by mouth every other day Ron King NP Active fluvoxaMINE (Luvox) 50 MG tablet [id number] Take 50 mg by mouth at bedtime Dipti Acevedo DO Active galcanezumab (Emgality) 120 MG/ML auto-injector [id number] Inject 120 mg under the skin every 30 (thirty) days Dipti Acevedo DO Active L-Theanine 200 MG capsule [id number] Take 1 capsule by mouth Daily Carmen Cruz MD Active losartan (Cozaar) 25 MG tablet [id number] Take 1 tablet (25 mg) by mouth Daily Eliceo Gómez DO Active methylphenidate ER (Concerta) 54 MG CR tablet [id number] Take 54 mg by mouth Daily Eliceo Gómez DO Active mirabegron ER (Myrbetriq) 50 MG 24 hr tablet [id number] Take 1 tablet (50 mg) by mouth at bedtime Do not crush, chew, or split. Dipti Acevedo, DO Active omeprazole (PriLOSEC) [address] capsule [id number] Take 40 mg by mouth in the morning. Active Quviviq 25 MG tablet [id number] Yes TAKE 1 TABLET BY MOUTH BEDTIME ( NEEDED) FOR SLEEP Dipti Acevedo DO Active rOPINIRole (Requip) 1 MG tablet [id number] Take 1 tablet (1 mg) by mouth in the morning. Eliceo Gómez DO Active rOPINIRole (Requip) 2 MG tablet [id number] Take 1 tablet (2 mg) by mouth at bedtime Eliceo Gómez DO Active Trelegy Ellipta 100-62.5-25 MCG/ACT aerosol powder [id number] INHALE 1 PUFF BY MOUTH DAILY Eliceo Gómez DO Active triamcinolone (Kenalog) 0.1 % cream [id number] Apply topically 2 (two) times a day Dipti Acevedo, DO Active Past Medical History: Diagnosis Date ADHD (attention deficit hyperactivity disorder) ([facility]) 1994 Asthma ([facility]) Basal cell carcinoma right chest Colon polyp Compressed cervical disc Cystocele 2021 Depression ([facility]) Difficulty walking 05/12/23 Eczema 2022 Endometriosis 2014 Fissure, anal Gastroparesis GERD (gastroesophageal reflux disease) 1994 Hormone disorder 2018 Hypertension ([facility]) 1999 Migraine ([facility]) OCD (obsessive compulsive disorder) ([facility]) Panic attack ([facility]) 04/28 Rectocele 2021 RLS (restless [...] at baseline unless noted below. 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 documented in this encounterSullivan County Memorial [id number] History of Present illness Narrative* Radha Cardenas [...] gain. She has an appointment with a movement education specialist 10/28. She was started on buspar for uncontrolled anxiety by her PCP. Loose stools 4-8 times a day [place] 6. Occasional BRBPR. Reglan increased diarrhea, does [...] & Nutrition Department of Internal Medicine [facility] Pager [phone] or Epic Chat with questions * Carmen Peace MA - 10/23/2024 11:00 AM EST This script writer verified the patient's name and . * Padmaja Llamas MD, PhD - 10/23/2024 11:00 AM EST Attending: Padmaja Llamas MD, PhD Patient was seen and examined with Dr. Cardneas. PMH, PSH, SH, FH were reviewed. I [...] Negative stool O&P. 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 At interval, persistent loose stool [place] type 6 about 5-6 times daily with [...] r/o malabsorption. Hemorrhoids on PE. * Tania Ahtina - 10/23/2024 11:00 AM EST Mary Leal was offered and accepted a Medical Brisket Puller for this exam/procedure/test 10/23/2024.Name of Medical Brisket Puller: Tania Riggs documented in this [facility]12-18-2024 Instructions* Patient Instructions* Radha Cardenas MD - [...] will either call you, send you a [employer] message, or mail you aletter with the results of your tests within 1-2 weeks after you have completed your tests. If you do not hear from our office, please call the clinic to receive your results at [phone]. As a reminder, [facility] [employer] should not be used as a form of communication that replaces an office visit. It can be used for reminders and clarifications If you need to fax old records in, please fax to [phone]. If you have any concerning symptoms, please seek immediate medical attention. documented in [facility]12[facility] History of Present illness Narrative* Wendy Colon MA - 10/15/2024 3:30 PM EST Images from the original note were not included. Dipti Acevedo, DO Obstetrics and Gynecology Mary Leal 1970 10/15/24 [id number] Pre Operative Exam Chief Complaint Patient presents [...] reconstruction FOOT TENDON SURGERY 11/13/2023 HYSTERECTOMY 2014 [facility] BS INTRAUTERINE DEVICE INSERTION 2013 Mirena OTHER SURGICAL HISTORY scar tissue removed from tonsils ROTATOR CUFF REPAIR Right 10/2016 SPINE SURGERY 2017 TONSILLECTOMY 02/11/2021 TUBAL LIGATION Bilateral 2006 Past Medical History: Diagnosis Date ADHD (attention deficit hyperactivity disorder) ([facility]) 1994 Asthma ([facility]) Basal cell carcinoma right chest Colon polyp Compressed cervical disc Cystocele 2021 Depression ([facility]) Difficulty walking 05/12/23 Eczema 2022 Endometriosis 2015 Fissure, anal Gastroparesis GERD (gastroesophageal reflux disease) 1995 Hormone disorder 2019 Hypertension ([facility]) 2000 Migraine ([facility]) OCD (obsessive compulsive disorder) ([facility]) Panic attack ([facility]) 04/28 Rectocele 2021 RLS (restless legs syndrome) Urinary incontinence 2022 Varicella 1984 Visual impairment 2010 ROS See HPI Exam GENERAL EXAMINATION alert oriented well developed, well nourished. HEAD: normocephalic atraumatic. EYES: sclera anicteric. EARS: no obvious hearing deficit. NECK/THYROID: neck supple no cervical lymphadenopathy no thyromegaly. LYMPH NODES: no axillary, supraclavicular or inguinal adenopathy. SKIN: warm and dry. HEART: regular rate and rhythm. LUNGS: clear to auscultation bilaterally. BACK: no costovertebral angle tenderness, no obvious scoliosis/kyphosis. FEMALE GENITOURINARY:sign builder in room - good hormone - cuff [...] Date 10/15/24 Time 5:00PM. documented in this encounterSullivan County Memorial [id number] Evaluation note* Diagnosis Onset Date Resolution Status Admit Date Cervical radiculopathy acute De cember 2023 8:25am Cervical radiculopathy acute [facility] 2024 1:13pm [facility] Work Phone: 1(522) 497-205611-22-2024 History of Present illness Narrative* Wendy Colon MA - 09/27/2024 11:45 AM EST Images from the original note were not included. Dipti Acevedo, Obstetrics and Gynecology Mary Leal 1970 09/27/24 [id number] Exam Chief Complaint Patient presents with Follow-up [...] reconstruction FOOT TENDON SURGERY 11/13/2023 HYSTERECTOMY 2014 [facility] BS INTRAUTERINE DEVICE INSERTION 2013 Mirena [...] reflux disease) 1994 Hormone disorder 2019 Hypertension ([facility]) 2000 Migraine ([facility]) OCD (obsessive compulsive disorder) ([facility]) Panic attack ([facility]) 04/28 Rectocele 2021 RLS (restless legs syndrome) Urinary incontinence 2022 Varicella 1984 Visual impairment 2010 ROS See HPI EXAM GENERAL EXAMINATION alert oriented well developed, well nourished. FEMALE GENITOURINARY:sign builder in room, estradiol cream in vault. Granulation [...] Date 09/27/24 Time 5:00PM. documented in this [facility]11-21-2024 History of Present illness Narrative* Ron King NP - 09/26/2024 4:20 PM EST Images from the original note were not included. SUBJECTIVE: Mary Lael is a 54 y.o. female presents with [...] after colorectal surgery JOLEEN (generalized anxiety disorder) ([facility]) Headache History of 2019 novel coronavirus disease (COVID-19) Impingement syndrome of right shoulder Increased frequency of urination Lingual tonsil hypertrophy Major depressive disorder, recurrent, moderate ([facility]) Nasal congestion Nausea Partial nontraumatic rupture of right rotator cuff Poor urinary stream Stress incontinence in female Unspecified inflammatory spondylopathy, cervical region ([facility]) Urinary urgency Wheezing Pain due to internal orthopedic prosthetic devices, implants and grafts, initial encounter ([facility]) Belching Past Medical History: Past Medical History: Diagnosis Date ADHD (attention deficit hyperactivity disorder) ([facility]) 1994 Asthma ([facility]) Basal cell carcinoma right chest Colon polyp Compressed cervical disc Cystocele 2021 Depression ([facility]) Difficulty walking 05/12/23 Eczema 2022 Endometriosis 2014 Fissure, anal Gastroparesis GERD (gastroesophageal reflux disease) 1994 Hormone disorder 2019 Hypertension ([facility]) 2000 Migraine ([facility]) OCD (obsessive compulsive disorder) ([facility] Panic attack ([facility]) 04/28 Rectocele 2021 RLS (restless [...] 10 min Stress: Stress Concern Present (05/01/2024) [employer] [place] [employer] - Occupational Stress Questionnaire Feeling of Stress : Rather much Social Connections: Socially Isolated (05/01/2024) Social Connection and Isolation Panel [NHANES] Frequency of Communication with Friends and Family: More than three times a week Frequency of Social Gatherings with Friends and Family: More than three times a week Attends Jainism Services: Never Active Member of Clubs or Organizations: No Attends Club or Organization Meetings: Never Marital Status: Intimate Partner Violence: Not At Risk (06/23/2023) Received from [facility], [facility] Safety Threatened: Not on file Insulted: [...] or fail to improve. documented in this encounterSullivan County Memorial HospitalSjrchvoykx95-75-1976 History of Present illness Narrative* Wendy Colon MA - 09/24/2024 8:15 AM EST Images from the original note were not included. Dipti Acevedo, DO Obstetrics and Gynecology Mary Leal 1970 09/24/24 [id number] Exam Chief Complaint Patient presents with Gynecologic [...] reconstruction FOOT TENDON SURGERY 11/13/2023 HYSTERECTOMY 2015 [facility] INTRAUTERINE DEVICE INSERTION 2013 Mirena OTHER SURGICAL [...] anicteric. EARS: no obvious hearing deficit. FEMALE GENITOURINARY:sign builder in room -hymnal defect, estradiol cream in [...] Date 09/24/24 Time 5:00PM. documented in this encounterSullivan County Memorial HospitalTkbfhtueho76-27-1131 Evaluation note* Diagnosis Onset Date Resolution Status Admit Date Cervical radiculopathy acute No vember 2023 2:53pm Cervical radiculopathy acute De cember 2023 8:25am [facility] Work Phone: 1(549) 936-423711-11-2024 Evaluation note* Diagnosis Onset Date Resolution Status Admit Date Cervical radiculopathy acute No vember 2023 2:53pm Cervical radiculopathy acute De cember 2023 8:25am Cervical radiculopathy acute Ja [facility] 2024 1:13pm [facility] Work Phone: 1(446) 349-965310-30-2024 History of Present illness Narrative* Wendy Colon MA - 09/04/2024 3:15 PM EDT Images from the original note were not included. Dipti Acevedo, Obstetrics and Gynecology Mary Keys Elvis 1970 09/04/24 [id number] Exam Chief Complaint Patient presents with Follow-up [...] reconstruction FOOT TENDON SURGERY 11/13/2023 HYSTERECTOMY 2014 [facility] BS INTRAUTERINE DEVICE INSERTION 2012 Mirena [...] reflux disease) 1994 Hormone disorder 2019 [place] OCD (obsessive compulsive disorder) [place] Panic attack [place] 04/28 Rectocele 2021 RLS (restless legs syndrome) Urinary incontinence 2022 Varicella 1984 Visual impairment 2010 ROS See HPI EXAM GENERAL EXAMINATION alert oriented well developed, well nourished. HEAD: normocephalic atraumatic. EYES: sclera anicteric. EARS: no obvious hearing deficit. FEMALE GENITOURINARY:sign builder in room -Erythema, and edema- chronic inflammatory [...] Date 09/04/24 Time 5:00PM. documented in this encounterSullivan County Memorial [id number] History of Present illness Narrative* Ron King, CASINO SLOT SUPERVISOR - 09/04/2024 2:40 PM EDT Images from the original note were not included. SUBJECTIVE: Mary Leal is a 54 y.o. female presents with chief complaint of No chief complaint on file. Pt presents to discuss her anxiety. Pt notes that she is in between therapy at this time, is going to est with [facility] psych in the first few weeks of [...] after colorectal surgery JOLEEN (generalized anxiety disorder) ([facility]) Headache History of 2019 novel coronavirus disease (COVID-19) Impingement syndrome of right shoulder Increased frequency of urination Lingual tonsil hypertrophy Major depressive disorder, recurrent, moderate ([facility]) Nasal congestion Nausea Partial nontraumatic rupture of right rotator cuff Poor urinary stream Stress incontinence in female Unspecified inflammatory spondylopathy, cervical region ([facility]) Urinary urgency Wheezing Pain due to internal orthopedic prosthetic devices, implants and grafts, initial encounter ([facility]) Belching Past Medical History: Past Medical History: Diagnosis Date ADHD (attention deficit hyperactivity disorder) ([facility]) 1994 Asthma ([facility]) Basal cell carcinoma right chest Colon polyp Compressed cervical disc Cystocele 2021 Depression ([facility]) Difficulty walking 05/12/23 Eczema 2022 Endometriosis 2015 Fissure, anal Gastroparesis GERD (gastroesophageal reflux disease) 1994 Hormone disorder 2019 Hypertension ([facility]) 2000 Migraine ([facility]) OCD (obsessive compulsive disorder) ([facility]) Panic attack ([facility]) 04/28 Rectocele 2021 RLS (restless [...] 10 min Stress: Stress Concern Present (05/01/2024) [employer] [place] [employer] - Occupational Stress Questionnaire Feeling of Stress : Rather much Social Connections: Socially Isolated (05/01/2024) Social Connection and Isolation Panel [NHANES] Frequency of Communication with Friends and Family: More than three times a week Frequency of Social Gatherings with Friends and Family: More than three times a week Attends Jainism Services: Never Active Member of Clubs or Organizations: No Attends Club or Organization Meetings: Never Marital Status: Intimate Partner Violence: Not At Risk (06/23/2023) [facility] Safety Threatened: Not on file Insulted: Not [...] (around 10/02/2024) for PRN. documented in this encounterSullivan County Memorial [id number] History of Present illness Narrative* Tania Riggs [...] subtotal colectomy, who presents today to the [facility] for chronic abdominal pain, [...] four hours. Ms. Leal sees a local family development extension specialist. She is worried about parasites with the loose stools, and SIBOdue to bloating. Ms. Leal has a history of severe reflux esophagitis but is not currently taking PPI she stopped due to concerns of side effects. She is taking an over the counter supplement root extract recommended by her local family development extension specialist. She does not take a multivitamin. Last [...] with food. She feels better at this imaging scheduler weight and is afraid to eat for weight gain, not due to her symptoms. She is not currently following with family development extension specialist or counselor and is open to both. [...] subtotal colectomy, who presents today to the [facility] for chronic abdominal pain, [...] & Nutrition Department of Internal Medicine [facility] Pager [phone] or Epic Chat with questions * Padmaja [...] Negative stool O&P. 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 Refer to nutrition and psychology (fear of eating). Continue current medications. Based on clinical course, may repeat gastric emptying test and refer to advanced endoscopy for evaluation of G-POEM if clinically indicated. documented in this encounterFayette County Memorial Hospital10-02-2024 Instructions* Patient Instructions* Radha Cardenas MD - 08/07/2024 9:00 AM EDT It was a pleasure to see you today. The following are your instructions: - referral to GI specific bushing and broach operator, will request video/telephone visit for you - referral to psychology to help you heal your relationship with food - continue omeprazole, vitamin D, and iron repletion - repeat H2 breath testing as able If you had labs drawn, I or my team will either call you, send you a [employer] message, or mail you aletter with the results of your tests within 1-2 weeks after you have completed your tests. If you do not hear from our office, please call the clinic to receive your results at [phone]. As a reminder, [facility] [employer] should not be used as a form of communication that replaces an office visit. It can be used for reminders and clarifications If you need to fax old records in, please fax to [phone]. If you have any concerning symptoms, please seek immediate medical attention. documented in this encounterFayette County Memorial Hospital09-26-2024 History of Present illness Narrative* Eliceo [...] prosthetic devices, implants and grafts, initial encounter ([facility]) Belching Past Medical History: Past Medical History: Diagnosis Date ADHD (attention deficit [place]activity disorder) [place] 1994 Asthma [place] Basal cell carcinoma right chest Colon polyp Compressed cervical disc Cystocele 2021 Depression ([facility]) Difficulty walking 05/12/23 Eczema 2022 Endometriosis 2015 Fissure, anal Gastroparesis GERD (gastroesophageal reflux disease) 1994 Hormone disorder 2019 Hypertension [place] 1999 Migraine [place]) OCD (obsessive compulsive disorder) [place] Panic attack [place] 04/28 Rectocele 2021 RLS (restless legs syndrome) [...] 10 min Stress: Stress Concern Present (05/01/2024) [place] [employer] - Occupational Stress Questionnaire Feeling of Stress : Rather much Social Connections: Socially Isolated (05/01/2024) Social Connection and Isolation Panel [NHANES] Frequency of Communication with Friends and Family: More than three times a week Frequency of Social Gatherings with Friends and Family: More than three times a week Attends Jainism Services: Never Active Member of Clubs or Organizations: No Attends Club or Organization Meetings: Never Marital Status: Intimate Partner Violence: Not At Risk (06/23/2023) Received from [facility], [facility] Safety Threatened: Not on file Insulted: [...] and/or persist despite treatment. - nystatin (Mycostatin) [id number] UNIT/ML suspension; Take 5 mL (500,000 Units) [...] mouth every other day, Disp: , Rfl: Zpvjspbyipq-Mirwuspyc-Vsfhio 100-62.5-25 MCG/ACT aerosol powder , Inhale 1 [...] 90 tablet, Rfl: 1 documented in this encounterSullivan County Memorial [id number] NoteSLEEP/NEUROLOGY CLINIC FOLLOW-UP EVALUATION Date of Evaluation: [...] regarding sleep. She eventually was evaluated at [facility] sleep kenna with Dr. Sherman and had sleep study [...] was also evaluated at sleep medicine at [facility], and saw Dr. Yoni Tuttle on 10/14/2022. She was subsequently started on auto-CPAP 5-15 cm H2O with nasal mask in December 2022. She uses the CPAP for about a week, and had severe intolerance and felt suffocated. She had severe pressure and mask intolerance, and despite changes in masks and pressure settings she was not able to tolera (more content not included)...[facility] 07-11-2024 History of Present illness Narrative* [...] cystitis Genitourinary syndrome of menopause Incontinence Migraine ([facility]) CHUCKIE (obstructive sleep apnea) Other [...] after colorectal surgery JOLEEN (generalized anxiety disorder) ([facility]) Headache History of 2019 novel coronavirus disease (COVID-19) Impingement syndrome of right shoulder Increased frequency of urination Lingual tonsil hypertrophy Major depressive disorder, recurrent, moderate (HCC) ([facility]) Nasal congestion Nausea Partial nontraumatic rupture of right rotator cuff Poor urinary stream Stress incontinence in female Unspecified inflammatory spondylopathy, cervical region ([facility]) Urinary urgency Wheezing Pain due to internal orthopedic prosthetic devices, implants and grafts, initial encounter ([facility]) Belching Past Medical History: Past Medical History: Diagnosis Date ADHD (attention deficit hyperactivity disorder) ([facility]) 1994 Asthma ([facility]) Basal cell carcinoma right chest Colon polyp Compressed cervical disc Cystocele 2021 Depression (CMS/HCC) Difficulty walking 05/12/23 Eczema 2022 Endometriosis 2015 Fissure, anal Gastroparesis GERD (gastroesophageal reflux disease) 1995 Hormone disorder 2019 Hypertension ([facility]) 2000 Migraine ([facility]) OCD (obsessive compulsive disorder) ([facility]) Panic attack ([facility]) 04/28 Rectocele 2021 RLS (restless [...] 10 min Stress: Stress Concern Present (05/01/2024) [place] [place] [employer] - Occupational Stress Questionnaire Feeling of Stress : Rather much Social Connections: Socially Isolated (05/01/2024) Social Connection and Isolation Panel [NHANES] Frequency of Communication with Friends and Family: More than three times a week Frequency of Social Gatherings with Friends and Family: More than three times a week Attends Jainism Services: Never Active Member of Clubs or Organizations: No Attends Club or Organization Meetings: Never Marital Status: Intimate Partner Violence: Not At Risk (06/23/2023) Received from [facility], [facility] Safety Threatened: Not on file Insulted: [...] SM ANTIBODY <1.0 NEG <1.0 NEGATIVE AI SM/TRADE SALES ASSISTANT ANTIBODY <1.0 NEG <1.0 NEGATIVE AI SJOGREN'S [...] Gastroparesis Mild intermittent asthma, unspecified whether complicated ([facility]) Patient advised to return if symptoms worsen and/or persist despite treatment.improved significantly, continue current treatment - albuterol HFA 90 mcg/act inhaler; Inhale 2 puffs every 4 (four) hours if needed for wheezing - Iagolbgvlkh-Zlaxotxun-Dwnkvp 100-62.5-25 MCG/ACT aerosol powder ; Inhale 1 [...] mouth every other day, Disp: , Rfl: Amqpwjczqat-Eqpnnsjhf-Cukomc (Trelegy Ellipta) 100-62.5-25 MCG/ACT aerosol powder , Inhale, Disp: ,Rfl: Npvuykmmomv-Jotjtqhzq-Xemlfc 100-62.5-25 MCG/ACT aerosol powder , Inhale 1 [...] Disp: 30 tablet, Rfl: 11 nystatin (Mycostatin) [id number] UNIT/ML suspension, Take 5 mL by mouth [...] Daily, Disp: , Rfl: documented in this encounterSullivan County Memorial HospitalEmrpojtobc09-95-7307 History of Present illness Narrative* Sidney Amezquita [...] and follow-up if needed. documented in this encounterSullivan County Memorial HospitalWwjukhowku32-75-3065 Telephone encounter Note* Telephone Encounter - Serneity Joseph MA - 06/12/2024 2:19 PM EDT LDH=11/30/22 MEREDITH=10/11/22 Patient will need a follow up appointment For future refills [facility]08-07-2024 Miscellaneous Notes* Telephone Encounter - Serenity Joseph MA - 06/12/2024 2:19 PM EDT LDH=11/30/22 MEREDITH=10/11/22 Patient will need a follow up appointment For future refills documented in this encounterMer[facility] Miscellaneous Notes* Telephone Encounter - [...] Patient also is switching pharmacies: [facility] [address] [place] [address] * Telephone Encounter - Carmen Barkley RN [...] and maintenance dose. Prior auth submitted to [facility] via [employer]. [place]: [id number] documented in [facility] encounterChildren[facility] Telephone encounter Note* Telephone Encounter - Sandip [...] Patient also is switching pharmacies: [facility] in [address] [place] [address] [facility]07[facility] Telephone encounter Note* Telephone Encounter - Carmen Barkley RN - 05/14/2024 8:15 AM EDT Added new pharmacy to patient's chart. Please advise on medication changes. [facility]07-09-2024 Telephone encounter Note* Telephone Encounter - Pauline Christensen MD - 05/14/2024 8:15 AM EDT Yes, ok to switch to Emgalty- she will need loading dose of 120 mg x 2 injections = 240 mg for the first month, and afterwards 120 mg Q4 weeks maintenance. Thanks [facility] [id number] Telephone encounter Note* Telephone Encounter - Carmen Barkley RN - 05/14/2024 8:15 AM EDT Orders placed for review and signature by physician for Emgality loading and maintenance dose. Prior auth submitted to [facility] via [employer]. [place]: [id number] [facility] [id number] NoteQuality of life Answer each question by shading in the [place] completely. Choose only one answer for each [...] 70 75 80 85 90 95 100 [facility]06-23-2024 NoteEpworth Sleepiness Scale Please rate the following [...] Problems: There are no active Hospital Problems. [facility]06-12-2024 Note Attestation signed by Grant Biswas, PhD at 04/18/2024 10:57 AM I have read and agree with the cook fruit's documentation and treatment summary. Please note there [...] PhD (electronically signed on 04/17/2024 at 8:49 AM)[facility]06-07-2024 Nurse Note* Nursing Notes - Stacie Johns RN - 04/12/2024 12:45 PM EDT Dilated LES to 20mm with balloon, held for [address] Franco [facility]06-07-2024 Miscellaneous Notes* Nursing Notes - Stacie [...] monitoring per anesthesia. documented [facility] encounterOS[facility]* Nursing Notes - Stacie Johns RN - 04/12/2024 12:41 PM EDT Dilated pylorus to 20mm with balloon, held for [address] Franco[address] [facility]06-07-2024 History and physical note* Milagros Franco MD, PhD - 04/12/2024 12:30 PM EDT ENDOSCOPIC PREPROCEDURE HISTORY AND PHYSICAL HISTORY OF PRESENT ILLNESS: Mary Leal is a 53 y.o. female seen in the pre-procedure area at [facility]. The indication for endoscopic evaluation includes: Blackford grade D esophagitis Early satiety Unintentional weight [...] Monitored Anesthesia Care. Milagros Franco MD, PhD [facility] Work Phone: 1(107) 448-314106-07-2024 History and physical note* Milagros Franco MD, PhD - 04/12/2024 12:30 PM EDT ENDOSCOPIC PREPROCEDURE HISTORY AND PHYSICAL HISTORY OF PRESENT ILLNESS: Mary Leal is a 53 y.o. female seen in the pre-procedure area at [facility]. The indication for endoscopic evaluation includes: Blackford grade D esophagitis Early satiety Unintentional weight [...] Franco MD, PhD documented in this encounterOSU [facility]06-07-20[facility] Nurse Note* Sae Kaur RN - 04/12/2024 12:30 PM EDT 1316- Family/xm1 tank driver arrived to recovery bay. RN provided and reviewed discharge instructions to patient and daughter. Verbalized understanding. All questions answered. 1326- Patient ambulated off ASC unit independently with xm1 tank driver. documented in this encounterOSU [facility]06-07-20[facility] Nurse Surgical operation note* Sae Kaur RN - 04/12/2024 12:30 PM EDT 1316- Family/xm1 tank driver arrived to recovery bay. RN provided and reviewed discharge instructions to patient and daughter. Verbalized understanding. All questions answered. 1326- Patient ambulated off ASC unit independently with xm1 tank driver. [facility]06-07-2024 Nurse Note* Nursing Notes - Stacie Johns RN - 04/12/2024 12:12 PM EDT Sedation, vital signs, airway, and monitoring per anesthesia. [facility]05-29-2024 Note Attestation signed by Pauline Christensen MD at 04/03/2024 4:16 PM I personally saw and examined the patient on the same date of service as resident/fellow Dr. Dumont. I discussed the findings and therapeutic plan with the resident/fellow . I agree with the documentation, except for any edits/updates below. Teaching Physician's Revisions: None Pauline Christensen MD. Shaker Plate Operator of Neurology and Sleep Medicine [facility] SLEEP/NEUROLOGY CLINIC FOLLOW-UP EVALUATION Date of Evaluation: [...] regarding sleep. She eventually was evaluated at [facility] sleep kenna with Dr. Sherman and had sleep study [...] we referred her to (more content not included)...[facility] 03-14-2024 Telephone encounter Note* Telephone Encounter [...] been sent. Jacquelin Lowery RN [facility]05-09-2024 Miscellaneous Notes* Telephone Encounter - [...] sent. Jacquelin Lowery RN documented in this encounterMer[facility]2024 NoteHNO ID: [id number] Author: FLOWER LOPEZ APRN.DOOR INSTALLER Service: ? Author Type: Nurse Practitioner Type: [...] intermittently- somewhat improved. She has worked with [employer] rep re: interstim setting, now on program [...] you received about pain medications helpful? Yes Brisket Puller offered:Patient declines OBJECTIVE: BP 146/93 Pulse 62 [...] notes 65% improvement s/p (more content not included)...[facility]2024 History of Present illness Narrative* Flower Lopez APRN.DOOR INSTALLER - 02/27/2024 10:00 AM EDT Female Pelvic [...] intermittently- somewhat improved. She has worked with [employer] rep re: interstim setting, now on program [...] you received about pain medications helpful? Yes Brisket Puller offered:Patient declines OBJECTIVE: BP 146/93 Pulse 62 [...] sooner if needed. Patient expressed understanding. Flower Lpoez APRN.CNP documented in this encounterMer[facility]04-16-2024 Miscellaneous Notes* Telephone Encounter - [...] 20, 2024 7:32 AM documented in this encounterMercy Health [facility]04-07-2024 NoteHNO ID: [id number] Author: LISSA DOYLE APRN.CNP Service: ? Author Type: Nurse Practitioner Type: Progress Notes Filed: 02/11/2024 15:16 Note Text: Visit cancelled. Patient checked into express care online system for My ongoing yeast infection. I've tried 3 Diflucan. . Connected to visit, advised PCP or local Express/Urgent Care in person evaluation. Patient verbalized understanding and comfortable with plan. Nontoxic appearance. Lissa Doyle APRN.CNPMiami Valley Hospital04-07-2024 History of Present illness Narrative* Lissa Doyle APRN.CNP - 02/11/2024 3:14 PM EDT Visit cancelled. Patient checked into express care online system for My ongoing yeast infection. I've tried 3 Diflucan. . Connected to visit, advised PCP or local Express/Urgent Care in person evaluation. Patient verbalized understanding and comfortable with plan. Nontoxic appearance. Lissa Doyle APRN.CNP documented in this encounterMercy [facility]04-03-2024 NoteSLEEP/NEUROLOGY CLINIC FOLLOW-UP EVALUATION Date [...] opinion from sleep medicine at [facility], and saw Dr. Yoni Tuttle [...] regarding sleep. She eventually was evaluated at [facility] sleep center with Dr. Sherman and [...] would like to av (more content not included)...[facility]03-23-2024 Miscellaneous Notes* Telephone Encounter - Radha Dunham MD - 01/27/2024 10:44 AM EDT Safety Lead Resident Telephone Encounter 01/27/2024 10:44 AM Call [...] Discussed with Dr. Mullins Urogyn fellow physician soil conservationist. Radha Dunham MD Obstetrics and Gynecology, PGY1 documented in this encounterMercy [facility]03-21-2024 History and physical note * Max Marroquin PA-C - 01/25/2024 9:00 AM EDT PREANESTHESIA CONSULT CLINIC TELEHEALTH VISIT SERVICE DATE: 01/25/2024 SERVICE TIME: 9:02 AM Patient has been identified by name and date of : Yes Reason for contact: PACC visit Accompanied by: Self This is a virtual visit using [employer] Video Visit. It required patient- provider interaction for the medical decision making as documented below. I have communicated my name and active licensure. The patient's identity and physical location wereverified at the time of this visit. Either the patient or their legal customer service representative teacher has been informed of the risks and [...] years ago Denies SOB or wheezing 4. HCUCKIE (obstructive sleep apnea) she is scheduled to [...] using inspire to get activated 02/07/2024 ) [id number] Score: Age: <65 Sex: female CHF history: No Hypertension history: Yes Stroke/TIA/thromboembolism history: No Vascular disease history: No Diabetes history: No [id number] Score: 2 ANESTHESIA FINDINGS: Intubation History: No [...] the AM and 2 mg PM Yes jzzpspkoznc-cgfhrjifb-fghichxp (TRELEGY ELLIPTA) 100-62.5-25 mcg Inhale 1 Puff [...] fevers. Neuro: No history of TIA's, stroke, CLINICAL PHARMACIST tumor, impaired sensorium, hemiplegia, paraplegia or quadraplegia. No neurological symptoms or problems. Respiratory: CHUCKIE and asthma Negative for Bronchitis, COPD, Pneumonia within 6 weeks (date), URI < 2 weeks Negative for cough, wheezing or shortness of breath. Negative for hemoptysis. Cardiovascular: HTN Negative for Recent DE, CAD, CHF Negative for chest pain, orthopnea, [...] 01/25/2024 TIME: 9:02 AM documented in this encounterMercy Health [facility]03-19-2024 Instructions* Patient Instructions* Max Marroquin PA-C - 01/23/2024 3:50 PM EDT PATIENT PREOPERATIVE INSTRUCTIONS Pam Wang MD has scheduled you for your procedure at this surgery center: [facility] [place] [facility] Scheduling Office: [phone] --[address] [place] [address]. Arrival Time for Surgery: - To obtain your arrival time for surgery, call your physician's office the day before your surgery. - If your surgery is scheduled for Monday, call the Monday before. Your surgeon s football coach will tell you what time to call the office. - If you have not reached the departmental football coach by 5 P.M., call [phone] after 5 P.M. the day before your [...] Procedures: - YOU MUST HAVE A RESPONSIBLE WIND FARM SUPPORT SPECIALIST TAKE YOU HOME. A FENCE POST DRIVER OR BLACK OXIDE OPERATOR CANNOT BE MADE A RESPONSIBLE WIND FARM SUPPORT SPECIALIST. - We recommend that a responsible person stays with you overnight to take care of you. - You cannot stay in a hotel alone after outpatient surgery. You will not be permitted to have yoursurgery, if you do not have someone to take care of you. If you already have an Advance Directive, please fax a copy to [phone] or email to for it to be [...] day. Max Marroquin PA-C documented in this encounterMercy Health [facility]03-18-2024 NoteHNO ID: [id number] Author: LEV THOMPSON LPN Service: ? Author Type: LICENSED NURSE Type: Progress Notes Filed: 01/25/2024 09:48 Note Text: DATE OF SERVICE: 01/25/2024 PROBLEM: Mary Leal presents for pre-op teaching. PRE-OP DIAGNOSIS: urinary urgency SCHEDULED SURGERY AND DATE: 01-26-24 [facility] INSRT NSTIM GENERATOR BLADDER W/ POCKET CREATE [...] an advanced directive: No Does [facility] have a copy of the [...] prescribed by anesthesia, internal medicine, surgeon, or CASINO SLOT SUPERVISOR Stop NSAIDs, Aspirin (ASA), vitamins, herbal supplements, [...] jewelry, body piercing, makeup, contacts, lotions, nail cameroonian on fingers, or anything in hair on arrival to surgery Wear low healed shoes and loose fitting clothing Leave all valuables at home or with a family member Directions to [facility] Parking/parking validation on the day [...] if after hours patient instructed to call ribbon sweatband operator and ask for soil conservationist relief pharmacist resident. DENISA program offered to patient: Yes [...] None Educator: Lev Thompson LPN [facility] History of Present illness Narrative* Lev Thompson LPN - 01/22/2024 11:22 AM EDT DATE OF SERVICE: 01/25/2024 PROBLEM: Mary Leal presents for pre-op teaching. PRE-OP DIAGNOSIS: urinary urgency SCHEDULED SURGERY AND DATE: 01-26-24 [facility] INSRT NSTIM GENERATOR BLADDER W/ POCKET CREATE [...] an advanced directive: No Does [facility] have a copy of the [...] prescribed by anesthesia, internal medicine, surgeon, or CASINO SLOT SUPERVISOR Stop NSAIDs, Aspirin (ASA), vitamins, herbal supplements, [...] jewelry, body piercing, makeup, contacts, lotions, nail cameroonian on fingers, or anything in hair on arrival to surgery Wear low healed shoes and loose fitting clothing Leave all valuables at home or with a family member Directions to [facility] Parking/parking validation on the day [...] patient, if after hours patientinstructed to call ribbon sweatband operator and ask for soil conservationist relief pharmacist resident. DENISA program offered to patient: Yes [...] None Educator: Lev Thompson LPN [facility] documented in this encounterMercy Health [facility]03-18-2024 Instructions* Patient Instructions* Lev Thompson LPN - 01/22/2024 11:22 AM EDT UROGYNECOLOGY PHYSICIAN CONTACT INFORMATION During business hours, these numbers connect to your doctor s office. During the evening and weekends, these numbers will connect you to the answering service to speak with the doctor soil conservationist. Dr. Pam Wang After hours phone number: or toll free Ask the ribbon sweatband operator to page the 'relief pharmacist soil conservationist.' Surgery Scheduling Office: Call the day before [...] vitamin E, herbal medications, diet pills, and nvzr-crm-mycxjyz medications. Tylenol (acetaminophen) is okay. I will not wear jewelry, body piercing(s), makeup, nail cameroonian, hairpins, or contacts on the day ofsurgery. [...] my surgeon. Discuss medication changes with your service car driver or primary care physician as well. If I stopped taking my blood-thinning medication, I will ask the surgeon when to resume taking it. If I am an outpatient, a responsible person will drive me home and it was suggested that someone stay with me for 24 hours. I understand that a insurance business analyst or cabdriver is NOT a responsible caregiver. [...] for surgery, I must call my surgical services tech after 2pm the day before surgery. PREOP INSTRUCTIONS THE DAY OF SURGERY/CHECK IN Report to DESK J1-9 for surgery. A map is located in Your Surgical Guide Book. The online version of the surgical guide book can be found at: [email or web address] The address is [address] [place], [place] [id number] INFECTION PREVENTION Please notify your doctor if [...] Your Surgical Guide Book for more information. [facility] TEAM At the [facility], we have a multidisciplinary team of caregivers that includes fellows, residents, nurse practitioners, physician assistants, clinical nurse specialists, nurses, medical assistants, patient care nursing assistants, social workers, wrapper caser and many others. We all have [...] MyChart for post-surgery concerns. documented in this encounterMercy Health [facility]03-06-2024 History of Present illness Narrative* Cullen Dawkins MD - 01/10/2024 12:45 PM EST [facility] - ENT [address] [place] [address], [address] [facility] [id number] SUBJECTIVE: Patient ID (1970): Mary Leal is [...] carcinoma (BCC) of chest 04/04/2023 Bipolar disorder ([facility]) Chronic interstitial cystitis 04/06/2023 Chronic sinusitis 07/07/2022 [...] 03/20/2020 Performed by Noman Mayo MD at [facility] ENDOSCOPY EGD, DILATATION N/A 09/25/2020 Performed by Noman Mayo MD at [facility] ENDOSCOPY ENDOSCOPIC DIAGNOSTIC DRUG INDUCED SLEEP Bilateral 09/19/2023 Performed by Cullen Dawkins MD at [facility] SURGERY FOOT SURGERY 06/25/2020 left foot surgery FOOT SURGERY Right 10/2022 and 05/2023 HYSTERECTOMY 2015 LASER LINGUAL TONISILLECTOMY Circumferential 07/08/2021 Performed by Alexei Avila MD PhD at [facility] MRI FOOT LEFT NECK SURGERY 2017 PLANTAR FASCIECTOMY RELEASE PHARYNGEAL SCAR CPT 24698 Circumferential 07/08/2021 Performed by Alexei Avila MD PhD at [facility] RESECTION SUBMUCOSAL NASAL Bilateral 02/11/2021 Performed by Alexei Avila MD PhD at [facility] ROTATOR CUFF REPAIR Right SEPTOPLASTY Circumferential 02/11/2021 Performed by Alexei Avila MD PhD at [facility] TONSILLECTOMY Bilateral 02/11/2021 Performed by Alexei Avila MD PhD at [facility] TOTAL COLECTOMY 03/2022 uvuloplasty N/A 02/11/2021 Performed by Alex[facility] MD PhD at [facility] [...] in the morning. Indications: gastroesophageal reflux disease. fnzgjmvwzfg-pshsddszt-flieymjd (TRELEGY ELLIPTA) 100-62.5-25 mcg blister with device [...] mg 2.5 mg nebulization PRN Gwendolyn Stroud APRN-DOOR INSTALLER REVIEW OF SYSTEMS: Review of Systems Data [...] this chart were generated using voice recognition [employer]*iPointer dictation software. Although every effort was made to ensure the accuracy of this automated car bracer, some errors in car bracer may have occurred. Iam Siddiqi 01/10/24 0753 documented in this encounterChildren's Hospital for Rehabilitation03-06-2024 Instructions* Patient Instructions* Cullen Dawkins MD - [...] care. The instructions to gain access to Pongr are at the bottom of this summary. If you are not signed up for access to MY CHART and have not received notification of ANY test result within 7 days, please call [phone] to leave a request for your results. [...] Ultrasound, MRI or PET scan, please call [facility] Scheduling at [phone]. If you need to be scheduled for surgery, please call Aiden Augustin Surgery Coordinator at [phone], or Lazara at [phone] or our main number [phone] if you have not received a return [...] (and medications that contain aspirin): Many non-prescription (ihzy-myp-pqqsmcc or OTC) medications contain aspirin. If you are unsure whether a medication you take has aspirin, please ask your pharmacist or your surgeon's office. You must ask your surgical team if they want you to continuetaking, or stop taking aspirin before your procedure. Medications containing aspirin that should be stopped 7 days before surgery: Juliet-Stearns Anacin Aspirin Fiorinal Ascriptin Carlos Bufferin Lortab [...] L-carnosine Licorice Kava kava Milk thistle Multivitamin [place]-3 Resveratrol Skullcap Michael's wort Vitamin E Adipex (phentermine) Glenn (orlistat) Hydroxycut Garcinia Cambogia Raspberry Ketones Wvkahkpq-A-42 should be stopped 14 days before surgery You will receive specific instructions regarding your insulin and anti-coagulant/anti-platelet medications (if applicable). documented in this encounterChildren's Hospital for Rehabilitation02-21-2024 Miscellaneous Notes* Telephone Encounter - Aiden Augustin - 12/27/2023 10:12 AM EST PATIENT NOTIFIED WITH SURGERY TIME OF 11:00. TOLD TO ARRIVE 2 HOURS PRIOR. documented in this [facility] HospitalPrime [facility] [id number] Telephone encounter Note* Telephone Encounter - Aiden Augustin - 12/27/2023 10:12 AM EST PATIENT NOTIFIED WITH SURGERY TIME OF 11:00. TOLD TO ARRIVE 2 HOURS PRIOR. [facility] Laborató[facility] Noli [id number] Miscellaneous Notes* Telephone Encounter - Stacie Gonzalez [...] distance health visit in this department: 10/25/2021 Photographic Aide, Nurse Next visit in this department: 01/25/2024 documented in this encounterMercy Health Springfield [facility] Center02-14-2024 History and physical note * Vilma Sutton APRN-DOOR INSTALLER - 12/20/2023 11:45 AM EST PRE-ADMISSION TESTING HISTORY AND PHYSICAL EXAM DATE: 12/20/23 PCP: ELICEO GÓMEZ JR, DO CHIEF COMPLAINT: CHUCKIE (obstructive sleep apnea) HISTORY OF PRESENT ILLNESS: Mary Leal, a 53 y.o. White or female, presents to [facility] for a pre- surgical H&P for a planned insertion of hypoglossal nerve stimulator. She complains of CHUCKIE. She states she was diagnosed about 5 years ago. She has been unable to tolerate the Cpap. PAST MEDICAL HISTORY: Past Medical History: Diagnosis Date ADD (attention deficit disorder) Allergic rhinitis 11/16/2015 Anxiety Asthma Atopic dermatitis 04/09/2020 Basal cell carcinoma (BCC) of chest 04/04/2023 Bipolar disorder ([facility]) Chronic interstitial cystitis 04/06/2023 Chronic sinusitis 07/07/2022 [...] 03/20/2020 Performed by Noman Mayo MD at [facility] ENDOSCOPY EGD, DILATATION N/A 09/25/2020 Performed by Noman Mayo MD at [facility] ENDOSCOPY ENDOSCOPIC DIAGNOSTIC DRUG INDUCED SLEEP Bilateral 09/19/2023 Performed by Cullen Dawkins MD at [facility] FOOT SURGERY 06/25/2020 left foot surgery FOOT SURGERY Right 10/2022 and 05/2023 HYSTERECTOMY 2015 LASER LINGUAL TONISILLECTOMY Circumferential 07/08/2021 Performed by Alexei Avila MD PhD at [facility] MRI FOOT LEFT NECK SURGERY 2017 PLANTAR FASCIECTOMY RELEASE PHARYNGEAL SCAR CPT 76472 Circumferential 07/08/2021 Performed by Alexei Avila MD PhD at [facility] RESECTION SUBMUCOSAL NASAL Bilateral 02/11/2021 Performed by Alexei Avila MD PhD at [facility] ROTATOR CUFF REPAIR Right SEPTOPLASTY Circumferential 02/11/2021 Performed by Alexei Avila MD PhD at [facility] TONSILLECTOMY Bilateral 02/11/2021 Performed by Alexei Avila MD PhD at [facility] TOTAL COLECTOMY 03/2022 uvuloplasty N/A 02/11/2021 Performed by Alexei Avila MD PhD at [facility] FAMILY HISTORY: Family History Problem Relation [...] Indications: gastroesophageal reflux disease., Disp: , Rfl: dzjsfknseim-jyixuvsxr-sncuurss (TRELEGY ELLIPTA) 100-62.5-25 mcg blister with device, [...] 2.5 mg, nebulization, PRN, Gwendolyn Nicole Stroud, ACCOUNTS PAYABLE MANAGER-DOOR INSTALLER REVIEW OF SYSTEMS: Review of Systems Constitutional: [...] the most recent lab values available in [facility] at the time ofthe office visit and additional labs may have been drawn since that time. ASSESSMENT / DIAGNOSIS: CHUCKIE (obstructive sleep apnea) PLAN: Mary Leal is scheduled for Insertion Stimulator Nerve Hypoglossal - Right with Dr. Dawkins on01/02/2024. STELLA Duron 12/20/23 1240 [facility]02-14[facility] History and physical note* STELLA Duron - 12/20/2023 11:45 AM EST PRE-ADMISSION TESTING HISTORY AND PHYSICAL EXAM DATE: 12/20/23 PCP: ELICEO GÓMEZ JR, DO CHIEF COMPLAINT: CHUCKIE (obstructive sleep apnea) HISTORY OF PRESENT ILLNESS: Mary Leal, a 53 y.o. White or female, presents to [facility] for a pre- surgical H&P for a [...] 03/20/2020 Performed by Noman Mayo MD at [facility] ENDOSCOPY EGD, DILATATION N/A 09/25/2020 Performed by Noman Mayo MD at [facility] ENDOSCOPY ENDOSCOPIC DIAGNOSTIC DRUG INDUCED SLEEP Bilateral 09/19/2023 Performed by Cullen Dawkins MD at [facility] FOOT SURGERY 06/25/2020 left foot surgery FOOT SURGERY Right 10/2022 and 05/2023 HYSTERECTOMY 2015 LASER LINGUAL TONISILLECTOMY Circumferential 07/08/2021 Performed by Alexei Avila MD PhD at [facility] MRI FOOT LEFT NECK SURGERY 2017 PLANTAR FASCIECTOMY RELEASE PHARYNGEAL SCAR CPT 45149 Circumferential 07/08/2021 Performed by Alexei Avila MD PhD at [facility] RESECTION SUBMUCOSAL NASAL Bilateral 02/11/2021 Performed by Alexei Avila MD PhD at [facility] ROTATOR CUFF REPAIR Right SEPTOPLASTY Circumferential 02/11/2021 Performed by Alexei Avila MD PhD at [facility] TONSILLECTOMY Bilateral 02/11/2021 Performed by Alexei Avila MD PhD at [facility] TOTAL COLECTOMY 03/2022 uvuloplasty N/A 02/11/2021 Performed by Alexei Avila MD PhD at [facility] FAMILY HISTORY: Family History Problem Relation [...] Indications: gastroesophageal reflux disease., Disp: , Rfl: ehxfecnqyrh-fqnzsofjs-iphqgfqw (TRELEGY ELLIPTA) 100-62.5-25 mcg blister with device, [...] mg, 2.5 mg, nebulization, PRN, Gwendolyn Stroud, ACCOUNTS PAYABLE MANAGER-DOOR INSTALLER REVIEW OF SYSTEMS: Review of Systems Constitutional: [...] the most recent lab values available in [facility] at the time ofthe office visit and additional labs may have been drawn since that time. ASSESSMENT / DIAGNOSIS: CHUCKIE (obstructive sleep apnea) PLAN: Mary Leal is scheduled for Insertion Stimulator Nerve Hypoglossal - Right with Dr. Dawkins on01/02/2024. STELLA Duron 12/20/23 1240 documented in this encounterChildren's Hospital for Rehabilitation02-14-2024 Instructions* Patient Instructions* Earlene Whalen RN - 12/20/2023 11:45 AM EST Your surgery/procedure is scheduled at [facility] on 01/02/2024 Arrival Time Surgeon will call [facility] Address: [address] [place] [address], [address] [place] [address] in the Emergency Center Parking lot. Report to the front desk person in the Emergency/Surgery Registration lobby of the hospital. Please call Pre-Admission Clinic at [phone] if you have any questions prior to surgery. For questions the morning of surgery, please call the Pre-op Department at [phone]. Notify your SURGEON if you develop any [...] would like to schedule therapy at a [facility] facility, please call [phone] ([phone]). Do not use lotions, creams, powders, perfume, make up, cologne or after-shaves day of surgery. Remove ALL jewelry including wedding rings, body piercings, hair extensions that contain metal, nail cameroonian, make-up, and contact lens. You may brush your teeth the morning of surgery, but do not swallow the water. Wear your dentures and partial plates to the hospital (no adhesive). Shower the night the before. If applicable, use the CHG (chlorhexidine gluconate) soap or wipes. Please be advised, [facility] has transitioned to a cashless payment system. [...] RIGHTS AND RESPONSIBILITIES As a patient at [facility], you have the right to: Receive medical care and be informed of who is taking care of you Be treated with dignity and respect Have a family member/customer service representative teacher of choice and your physician notified of your admission Receive information and actively participate in decisions about your care and treatment Refuse care, treatment and services Decide who may provide your support and speak for you Access bahai and spiritual services Participate in ethical issues [...] of hospital charges and payment methods Patient/patient customer service representative teacher responsibilities are to: Provide information about health [...] surgery in clean clothes. documented in this encounterChildren's Hospital for Rehabilitation01-16-2024 NoteHNO ID: [id number] Author: PAM WANG MD Service: ? Author [...] my personal performance and is accurate and complete.[facility]01-03-2024 Miscellaneous Notes* Telephone Encounter - Emily Zamora - 11/08/2023 3:40 PM EST NURTEC PENDING WITH TEJADA [id number] documented in this encounterChildren's Hospital for Rehabilitation01-03-2024 Telephone encounter Note* Telephone Encounter - Emily Zamora - 11/08/2023 3:40 PM EST NURTEC PENDING WITH TEJADA [id number] [facility]oli [id number] NoteHNO ID: [id number] Author: Pam Wang MD Service: ? Author [...] Video-assisted cystourethroscopy was performed using a 19 Sudanese 70 and 30 degree rigid cystoscope with [...] and urethra PLAN: See progress note from todayMiami Valley Hospital12-05-2023 NoteHNO ID: [id number] Author: Pam Wang MD Service: ? Author [...] PFSH obtained by others. Pam Wang MD Brisket Puller offered: Patient declines. OBJECTIVE: BP 102/60 General: [...] would like to move forward with PNE. SnapMD packet given to patient today to review. [...] which included preparing to see the patient, aflz-gb-xkog patient care, completing clinical documentation, obtaining and/or reviewing separately obtained history, performing a medically appropriate examination, counseling and educating the patient/family/caregiver, and communicating with other HCP (more content not included)...[facility]11-27-2023 Miscellaneous Notes * Telephone Encounter - [...] TABLET MEREDITH: 09/27/2023 Doris Arias APRN.[facility] ([facility] ASSESSMENT: Mary Leal is a 53 [...] w/ Dr. Pam Wang documented in this encounterMercy Health Springfield Regional Medical Center11-22-2023 NoteHNO ID: [id number] Author: Doris Arias APRN.DOOR INSTALLER Service: ? Author Type: Nurse Practitioner Type: [...] urination is normal and pressure with urinating MAJOR ASSEMBLY LINEMAN: denies abnormal vaginal bleeding, no vaginal discharge [...] which included preparing to see the patient, jjzq-cz-egjf patient care, completing clinical documentation, obtaining and/or [...] call to schedule cystoscopy. Urogynecology [facility] Main provided: Pam Wang Staff Physician, Department of Urogynecology and Pelvic Floor Disorders Worsening frequency and urgency of urination. Is a urine culture indicated? Please review/advise Lex Vieyra RN documented in this encounterMercy Health Springfield Regional Medical Center11-06-2023 NoteHNO ID: [id number] Author: Jairon Lai MD Service: ? Author Type: Physician Type: Progress Notes Filed: 09/11/2023 1:18 PM Note Text: [facility] [...] Pdet to void lower flow Jairon Lai [facility]11-06-2023 NoteHNO ID: [id number] Author: Phil Beckford MD Service: ? Author [...] benefit from sling incision +/- discussion of [facility]10-07-2023 Emergency department Note* Avelino Scott RN - 08/12/2023 7:35 AM EDT Discharge, follow up, referral, and prescription information reviewed and explained; all questions and concerns addressed. Patient A/Ox3 in NAD, resp. easy unlabored upon discharge, escorted to exit by staff. [facility]10-07-2023 Emergency department Note* Avelino Scott RN [...] gastroparesis, gastroenteritis, acute cholecystitis, pancreatitis, less likely DE The patient's initial and delta troponin are negative. EKG does not demonstrate any ischemic changes. Low suspicion for DE. Her urinalysis is negative for UTI. Urine [...] follow-up. She was instructed to call her latent fingerprint examiner and PCP to schedule follow-up appointments. She was instructed to return to the emergency department if she has any new or worsening symptoms. Patient agreeable plan of care. Return precautions discussed at bedside. Spoke with Dr. Salmon regarding patient. Physician to complete their own physical exam and evaluation. Collaboration performed between this TECHNICAL CLERK and physician regarding patient's plan of [...] following orders were created for panel order [place]kens Draw. Procedure Abnormality Status --------- ------ Gold Top[[id number]] Final result LIGHT BLUE TOP[[id number]] Final result Dark Green Top[[id number]] Final result Please view results for these tests on the individual orders. GOLD TOP LIGHT BLUE TOP DARK GREEN TOP TROPONIN I Records reviewed: Urogynecology telemedicine visit 08/07/2023 ENT visit 07/11/2023 Family medicine visit 07/06/2023 Lev Ritter APRN DOOR INSTALLER 08/12/23 0723 * Jaren Lopez RN - 08/12/2023 4:21 AM EDT Emily at bedside * Moisés Duke RN - 08/12/2023 12:24 AM EDT Ambulates to triage with C/O sudden epigastric gnawing, burning pain that woke her from sleep. Alsoreports wheezing. States nausea. Denies fever. Alert. Respirations easy and unlabored. Skin PWD. NAD noted. documented in this [facility]10-07-2023 Hospital Discharge instructions* Discharge Instructions* [...] sent through Care Everywhere. * Abdominal Pain (Guamanian Tunisian) documented in this [facility]10-07-2023 Emergency department Note* Monserrat Scales RN - 08/12/2023 7:05 AM EDT Report to Les GAMBINO [facility]10-07-2023 Physician Emergency department Note* Lev Ritter [...] gastroparesis, gastroenteritis, acute cholecystitis, pancreatitis, less likely DE The patient's initial and delta troponin are negative. EKG does not demonstrate any ischemic changes. Low suspicion for DE. Her urinalysis is negative for UTI. Urine [...] follow-up. She was instructed to call her latent fingerprint examiner and PCP to schedule follow-up appointments. She was instructed to return to the emergency department if she has any new or worsening symptoms. Patient agreeable plan of care. Return precautions discussed at bedside. Spoke with Dr. Salmon regarding patient. Physician to complete their own physical exam and evaluation. Collaboration performed between this TECHNICAL CLERK and physician regarding patient's plan of [...] following orders were created for panel order Lykens Draw. Procedure Abnormality Status --------- ------ Gold Top[[id number]] Final result LIGHT BLUE TOP[[id number]] Final result Dark Green Top[[id number]] Final result Please view results for these tests on the individual orders. GOLD TOP LIGHT BLUE TOP DARK GREEN TOP TROPONIN I Records reviewed: Urogynecology telemedicine visit 08/07/2023 ENT visit 07/11/2023 Family medicine visit 07/06/2023 Lev Ritter APRN DOOR INSTALLER 08/12/23722 [facility]10-07-2023 Emergency department Note* Jaren Lopez RN - 08/12/2023 4:21 AM EDT Emily at bedside [facility]10-07-2023 Emergency department Triage note* Moisés Duek RN - 08/12/2023 12:24 AM EDT Ambulates to triage with C/O sudden epigastric gnawing, burning pain that woke her from sleep. Alsoreports wheezing. States nausea. Denies fever. Alert. Respirations easy and unlabored. Skin PWD. NAD noted. [facility]10-02-2023 NoteHNO ID: [id number] Author: Pam Wang MD Service: ? Author [...] no Pain: no Abnormal Vaginal 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 She has no history of an abnormal mammogram with cysts on US LMP: No LMP recorded. Patient has had a hysterectomy.; Menopause 3 years ago; hysterectomy in 2015: Menstrual history: NA; Deliveries: I have confirmed and edited as necessary, the PFSH obtained by others. Pam Wang MD Brisket Puller offered: Patient declines. OBJECTIVE (Virtual) There were [...] which included preparing to see the patient, rqwt-wr-bfct patient care, completing clinical documentation, obtaining and/or reviewing separately obtained history, counseling and educating the patient/family/caregiver, ordering medications, tests, or procedures, and communicating with other HCPs (not separately reported). Pam Wang, [facility]09-25-2023 NoteHNO ID: [id number] Author: Nelsy Chávez APRN.DOOR INSTALLER Service: ? Author Type: Nurse Practitioner Type: [...] new Pain: no Abnormal Vaginal 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 She has no history of an abnormal mammogram with cysts on US LMP: No LMP recorded. Patient has had a hysterectomy.; Menopause 3 years ago; hysterectomy in 2015: Menstrual history: NA; Deliveries: I have confirmed and edited as necessary, the PFSH obtained by others. Nelsy Chávez APRN.DOOR INSTALLER Brisket Puller offered: Patient declines. OBJECTIVE: There were no [...] which included preparing to see the patient, terr-bm-dmyi patient care, completing clinical documentation, performing a medically appropriate examination, counseling and educating the patient/family/caregiver and ordering medications, tests, or procedures.[facility]09-25-2023 History of Present illness Narrative* Nelsy Chávez APRN.DOOR INSTALLER - 07/31/2023 2:16 PM EDT Female Pelvic [...] new Pain: no Abnormal Vaginal 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 She has no history of an abnormal mammogram with cysts on US LMP: No LMP recorded. Patient has had a hysterectomy.; Menopause 3 years ago; hysterectomy in 2015:Menstrual history: NA; Deliveries: I have confirmed and edited as necessary, the PFSH obtained by others. Nelsy Chávez APRN.DOOR INSTALLER Brisket Puller offered: Patient declines. OBJECTIVE: There were no [...] which included preparing to see the patient, iudn-yc-jhlg patient care, completing clinical documentation, performing a medically appropriate examination, counseling and educating the patient/family/caregiver and ordering medications, tests, or procedures. documented in this encounterMer[facility]06-21-2023 Evaluation note* Encounter Date Diagnosis [...] note writ ten by Wanda Yang LPN, Director Public Service. Edited and approved by Dr. Beto Snyder MD. [facility] Other 06-06-2023 Miscellaneous Notes* Telephone Encounter - Serenity Joseph MA - 04/11/2023 10:19 AM EDT MEREDITH=10/11/22 Spoke with patient she does need a refill Medication pended please file Rx request if appropriate Patient and pharmacy verified documented in this encounterMercy [facility]05-15-2023 Miscellaneous Notes* Telephone Encounter - Regina Philippe - 03/20/2023 2:50 PM EDT Should patient follow up via virtual visit to discuss further? * Telephone Encounter - Steffi Ross LPN - 03/20/2023 10:20 AM EDT Patient's stool tests came back normal. Steffi Ross LPN documented in this encounterMercy Health [facility]04-18-2023 NotePROCEDURE: XR ANKLE RT [...] Electronically authenticated by: ZAIDA ACOSTA Date: 2023-02-21 10:15[facility]04-18-2023 NotePROCEDURE: XR ANKLE RT MIN [...] Electronically authenticated by: ZAIDA ACOSTA Date: 2023-02-21 10:15[facility]03-28-2023 NotePROCEDURE: XR FOOT RT MIN 3 [...] Electronically authenticated by: ZAIDA ACOSTA Date: 2023-01-31 11:55[facility]03-16-2023 Miscellaneous Notes* Telephone Encounter - Jennie Moreno RN - 01/19/2023 2:17 PM EDT Please review and advise patient. documented in this encounterMercy Health [facility]03-13-2023 Miscellaneous Notes* Telephone Encounter - Mounika Roberto PA-C - 01/16/2023 1:08 PM EDT Patient was scheduled for virtual PACC appt at 1300 today. Patient did not check in for visit. Called patient at [phone] to see if they needed any assistance logging in and left voicemail. This message routed to PACC schedulers to contact patient to reschedule PACC appt. Mounika Roberto PA-C January 16, 2023 1:09 PM documented in this encounterMercy Health [facility]03-13-2023 History and physical note * Mounika Roberto PA-C - 01/16/2023 1:00 PM EDT This is a virtual visit using [employer] video visit. It required patient-provider interaction for themedical decision making as documented below. I have communicated my name and active licensure. The patient's identity and physical location wereverified at the time of this visit. Either the patient or their legal customer service representative teacher has been informed of the risks and benefits of and alternatives to treatment through a remote evaluation and consents to proceed with the evaluation remotely. Surgeon: Winston Hannah DO Type of surgery: GEN SURG: POP Patient scheduled for surgery on 02/08/23 . Surgery Location: [facility] Diagnosis: Preop examination (primary encounter [...] in the AM and 4 mg PM uiscvwatill-mpdifofrs-wqkazxch (TRELEGY ELLIPTA) 100-62.5-25 mcg Inhale 1 Puff [...] 12:36 PM documented in this encounterMercy Health [facility] Center03-13-2023 Instructions* Patient Instructions* Mounika Roberto PA-C - 01/16/2023 12:38 PM EDT PATIENT PREOPERATIVE INSTRUCTIONS Winston Hannah DO has scheduled you for your procedure at this surgery center: [facility]: [phone] - [facility] [address]. Please read below carefully for your personalized [...] Procedures: - YOU MUST HAVE A RESPONSIBLE WIND FARM SUPPORT SPECIALIST TAKE YOU HOME. A FENCE POST DRIVER OR BLACK OXIDE OPERATOR CANNOT BE MADE A RESPONSIBLE WIND FARM SUPPORT SPECIALIST. - We recommend that a responsible [...] Advance Directive, please fax a copy to [phone] or email to for it to be [...] Roberto PA-C documented in this encounterMercy Health [facility]03-08-2023 Miscellaneous Notes* Telephone Encounter - Berta Ann RN - 01/11/2023 9:47 AM EST Procedure pended for 02/08/23. Pt aware of need for PACC. Pre-op instructions reviewed, will send to pt's MC, per pt request. Postop appt scheduled. No other questions at this time. Berta HENSON, RN Specialty Manager Leadership Development documented in this encounterMercy Health [facility]03-07-2023 History of Present illness Narrative* Winston Hannah DO - 01/10/2023 9:09 AM EST Images from the original note were not included. [facility] [place] Gastroparesis/Dysmotility Follow Up This encounter was provided [...] of care. NAME: Mary Leal CLINIC NO: [id number] CHIEF COMPLAINT Idiopathic Gastroparesis HISTORY OF PRESENT [...] Normal gastric transit Normal small bowel transit [id number] transit in the distal bowel consistent delay [...] (FLONASE) 50 mcg/actuation nasal spray Use 1 [place] in each nostril once daily. carBAMazepine XR [...] THE LUNGS every 4 hours if needed zyueetwsdxr-swprkuifh-nsljlydd (TRELEGY ELLIPTA) 100-62.5-25 mcg Inhale 1 Puff [...] dialysis. No history of symptoms or problems. MAJOR ASSEMBLY LINEMAN: Negative for abnormal vaginal bleeding, abnormal vaginal [...] of care. documented in this encounterMercy [facility]02-23-2023 Miscellaneous Notes* Addendum Note - Yoni Tuttle MD - 12/29/2022 3:37 PM ESTAddended by: YONI TUTTLE MD on: 12/29/2022 03:37 PM Modules accepted: Orders documented in this encounterMercy Health [facility]02-20-2023 History of Present illness Narrative* [...] 3:17 PM documented in this encounterMercy Health [facility]02-17-2023 Miscellaneous Notes* Telephone Encounter - Erica Serrano RN - 12/23/2022 4:36 PM EST Message being addressed in another encounter that was forwarded to provider documented in this encounterMercy Health [facility]02-16-2023 History of Present illness Narrative* Winston Hannah DO - 12/22/2022 8:52 AM EST Images from the original note were not included. [facility] [place] Gastroparesis/Dysmotility Follow Up This encounter was provided [...] completed esophagram NAME: Mary Leal CLINIC NO: [id number] CHIEF COMPLAINT Idiopathic Gastroparesis HISTORY OF PRESENT [...] chicken spaghetti etc. Duration of symptoms (months): 2178-5691 Weight changes in last 3 months: Stable [...] Normal gastric transit Normal small bowel transit [id number] transit in the distal bowel consistent delay [...] (FLONASE) 50 mcg/actuation nasal spray Use 1 [place] in each nostril once daily. carBAMazepine XR [...] THE LUNGS every 4 hours if needed sicvwsxpciv-aowljepat-qvljikmg (TRELEGY ELLIPTA) 100-62.5-25 mcg Inhale 1 Puff [...] dialysis. No history of symptoms or problems. MAJOR ASSEMBLY LINEMAN: Negative for abnormal vaginal bleeding, abnormal vaginal [...] of care. documented in this encounterMer[facility]02-15-2023 NotePROCEDURE: XR FOOT RT MIN [...] Electronically authenticated by: ZAIDA ACOSTA Date: 2022-12-21 12:24[facility]02-09-2023 History of Present illness Narrative* [...] in the AM and 4 mg PM wmveagtpllq-haklnqkxh-lofvchdk (TRELEGY ELLIPTA) 100-62.5-25 mcg Inhale 1 Puff [...] Abdomen, CT Pelvis I have discussed Mary Lael's treatment plan and/or results with the patient, Dr. Masters. I spent a total of 40 minutes on the date of the service which included preparing to see the patient, mmkq-qd-zsco patient care, completing clinical documentation, obtaining and/or reviewing separately obtained history, counseling and educating the patient/family/caregiver, ordering medications, quincy ts, or procedures, communicating with other HCPs (not separately reported), independently interpreting results (not separately reported), communicating results to the patient/family/caregiver, and care coordination (not separately reported). Mary Obrien MD Colorectal Surgery documented in this encounterMercy Health [facility]02-08-2023 Miscellaneous Notes* Telephone Encounter - Emily Benton RN - 12/14/2022 5:19 PM EST Several attempts to reach pt unsuccessful - MC sent. * Telephone Encounter - Barber Marie - 12/02/2022 8:39 AM EST SLEEP PHONE Name of caller: Mary Leal Relationship to patient : Self In-state or ydf-vf-rpdeh patient: In-State Was permission obtained from patient? Yes Patient identified by Name and Date of . ( Mary Keys Elvis, 1970). Yes Reason for Call : Patient said her and Emily was chatting through my chart and Emily calledher about 5:15 yesterday. Number to return call [phone] Okay to leave a message ? Yes Last office visit 10/14/[address] Kusum vines Next office visit 01/13/[address] Tuttle virtual documented in this encounterMercy Health [facility]02-06-2023 Miscellaneous Notes* Telephone Encounter - Jet Wong RN - 12/12/2022 9:[address] Obrien sent my chart message to respond to this phone encounter and previous my chart message. * Telephone Encounter - Madyson Villanueva [facility] - 12/09/2022 3:22 PM EST Patient called and left message regarding post operative 03/2022 total laparoscopic colectomy and concerns regarding symptoms and follow up testing return call to [phone] documented in this encounterMercy Health [facility] Center02-03-2023 Miscellaneous Notes* Telephone Encounter - [...] Summary: As noted Concerns: Procedure results Manager Leadership Development plan for next outreach: Will follow up Signature Nelsy Gilmore RN December 08, 2022 documented in this encounterMercy Health [facility]01-30-2023 Nurse Note* Lisa Contreras RN - 12/05/2022 1:05 PM EST [facility] ENDOSCOPY PRE PROCEDURE CALL Akiko. I'm calling from [facility] endoscopy to provide you with the information for your surgery/procedure tomorrow. 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 tbd What is the best number for your xm1 tank driver to be reached at tomorrow for updates? tbd Your xm1 tank driver is allowed to wait here with [...] Do not wear makeup, lotion, or finger cameroonian. yes Patient instructed: Please bring a list [...] given Any barriers to Patient learning (confusion? Catapult And Arresting Gear Officer needed?): Patient/Patient Apparel Embroidery Digitizer responded appropriately on phone. If patient needs to reschedule please call: [phone] [facility] phone number: [phone] Type of instruction given: Verbal by telephone contact. documented in this encounterMercy Health [facility] Center01-27-2023 Nurse Note* Isra Harman RN - 12/02/2022 10:48 AM EST [facility] ENDOSCOPY PRE PROCEDURE CALL Akiko. I'm calling from [facility] endoscopy to provide you with the information for your surgery/procedure tomorrow. 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 Rich What is the best number for your xm1 tank driver to be reached at tomorrow for updates? [phone] Your xm1 tank driver is allowed to wait here with [...] Do not wear makeup, lotion, or finger cameroonian. yes Patient instructed: Please bring a list [...] given Any barriers to Patient learning (confusion? Catapult And Arresting Gear Officer needed?): Patient/Patient Apparel Embroidery Digitizer responded appropriately on phone. If patient needs to reschedule please call: [phone] [facility] phone number: [phone] Type of instruction given: Verbal by telephone contact. documented in this encounterMercy Health [facility]01-26-2023 NotePROCEDURE: XR FOOT RT [...] Electronically authenticated by: ZAIDA ACOSTA Date: 2022-12-01 11:42[facility]01-26-2023 NotePROCEDURE: XR FOOT RT MIN [...] Electronically authenticated by: ZAIDA ACOSTA Date: 2022-12-01 11:42[facility]01-25-2023 History of Present illness Narrative* [...] in the AM and 4 mg PM mzkfwqdpbvn-ojexiyjxy-ypalvvxq (TRELEGY ELLIPTA) 100-62.5-25 mcg Inhale 1 Puff [...] no edema RESPIRATORY: No dyspnea : neg MAJOR ASSEMBLY LINEMAN: neg The remainder of the review of [...] DO 11/30/2022 documented in this encounterMercy Health [facility] Center01-19-2023 Miscellaneous Notes* Telephone Encounter - Erica Serrano RN - 11/24/2022 3:20 PM EST This concern was addressed in the phone encounter on 11/24/22. Patient was called back and informed PreAccess will complete Prior Authorization for her sleep study. documented in this encounterMercy Health [facility]01-19-2023 Miscellaneous Notes* Telephone Encounter - [...] Relationship to patient : Self In-state or qnl-dk-frjvr patient: In-State Was permission obtained from patient? Yes Patient identified by Name and Date of . ( Mary Keys Elvis, 1970). Yes Reason for Call : Patient stated she spoke to her insurance and they told her that the provider need to call Deuce to see if a PA is needed for the PAP Titration. Number to return call [phone] Okay to leave a message ? Yes Last office visit 10/14/[address] Tuttle virtual Next office visit None documented in this encounterMercy Health [facility] Center01-19-2023 History of Present illness Narrative* Isra Masters DO - 11/24/2022 8:29 AM EST Images from the original note were not included. SmartPill Test Report - [id number] Test start date: 11/17/2022 10:03 AM Copy Manager: [email or web address] Interpretation date: 11/24/2022 Ordering physician: Isra Masters DO Referring physician: Patient Information Name: Denver Lealjose Feldman. ID: [id number] date: 1970 Height ft. in.: 5' 4 [...] Normal gastric transit Normal small bowel transit [id number] transit in the distal bowel consistent delay post anastomosis Signature _Dr. Masters Date _11/24/2022 documented in this encounterMercy Health Springfield [facility] Center01-17-2023 Miscellaneous Notes* Telephone Encounter - Regina Philippe - 11/22/2022 3:37 PM EST Patient calling to verify that Smart Pill monitor was received at A30. Monitor was sent via Fed [employer] on 11/19/22. Patient is requesting a confirmation. documented in this encounterMercy Health [facility] Center01-16-2023 Miscellaneous Notes* Telephone Encounter - Erica Serrano RN - 11/21/2022 9:11 AM EST Intelen message sent to patient. Prior Sleep study forwarded to to review, Order pended for PAP-titration for provider to review and sign if necessary. documented in this [facility]01-16-2023 History and physical note * Yodit Back PA-C - 11/21/2022 8:00 AM EST PREANESTHESIA CONSULT CLINIC TELEHEALTH VISIT Patient has been identified by name and date of : Yes This is a virtual visit using Intelen video visit. It require patient-provider interaction for [...] in the AM and 4 mg PM voyvejwvubg-nqxiykiuv-piqubdav (TRELEGY ELLIPTA) 100-62.5-25 mcg Inhale 1 Puff as instructed once daily. No current facility-administered medications for this visit. COVID VACCINATION STATUS: Fully vaccinated REVIEW OF SYSTEMS: Pain Assessment: General: No weight loss, malaise or fevers. Neuro: No history of TIA's, stroke, CLINICAL PHARMACIST tumor, impaired sensorium, hemiplegia, paraplegia or quadraplegia. [...] requiring medication, no history of angina, CHF, DE, cardiac surgery or stents. Denies rest pain, gangrene or revascularization/amputation for PVD. No history of cardiovascular symptoms or problems. + HLD GI: See HPI : No history of dysuria, frequency or incontinence,, stones or chronic kidney disease MAJOR ASSEMBLY LINEMAN: Negative for abnormal vaginal bleeding, abnormal vaginal [...] PAGER/CONTACT #: documented in this encounterMercy Health [facility] Center01-12-2023 Miscellaneous Notes* Addendum Note - [...] 11/02/2022 12:33 PM EST Received from [facility] Sleep Laboratory Report via fax. 8 pages indexed to chart. documented in this encounterMercy Health Springfield [facility] Center01-12-2023 History of Present illness Narrative* [...] complete. You will be wearing a Data Solar Thermal Installer around your neck like a necklace during the test. You must keepthis near you at all times. The Data Solar Thermal Installer has an EVENT button. You will [...] is inside your body. Return the Data Solar Thermal Installer to the [facility] after your test is completed. Brittanie Gillespie RN documented in this encounterMercy Health Springfield [facility] Center01-09-2023 NotePROCEDURE: XR FOOT RT MIN [...] Electronically authenticated by: ZAIDA ACOSTA Date: 2022-11-14 10:39[facility]01-05-2023 NotePROCEDURE: XR FOOT RT MIN [...] Electronically authenticated by: NICKI DACOSTA Date: 2022-11-10 11:44[place] [facility]01-05-2023 Miscellaneous Notes* Telephone Encounter - Annmarie Gillespie RN - 11/10/2022 9:07 AM EST Telephoned patient with [employer] procedure appointment reminder/instructions. Brittanie Gillespie RN documented in this encounterMercy Health [facility]01-04-2023 Miscellaneous Notes* Telephone Encounter - [...] it legit. documented in this encounterMercy Health Springfield [facility] Center01-04-2023 Miscellaneous Notes* Telephone Encounter - Wali Doll - 11/09/2022 9:47 AM EST SENT PATIENTS RX TO PREFERRED LOCATION [facility] [phone] Wali Doll CMA documented in this encounterMercy Health Springfield [facility] Center01-03-2023 Miscellaneous Notes* Telephone Encounter - Regina Philippe - 11/08/2022 11:15 AM EST Per Soumya in provider services at [facility]. No prior auth is needed,coverage is active, patient can proceed with Smart [employer]. Placed a new referral. Call Ref # [id number] * Telephone Encounter - Regina Philippe - 11/02/2022 3:51 PM EST Spoke with patient. Smart Pill is a covered benefit. Sent email to Smart Pill football coach and [facility] to assist in scheduling Smart [...] procedure, she can call Earlene Martin at [phone]. documented in this encounterMercy Health Springfield Regional Medical Center12-19-2022 Miscellaneous Notes* Telephone Encounter - [...] calling: self Call patient at: at home [phone] (home) [phone] (cell) Closing statement: Symptom Call: Thank you for calling [facility], your call is very important. A nurse will call in approximately 2-4 hours during business hours. If this is an emergency, please contact 911. Nati Martinez documented in this encounterMercy Health Springfield Regional Medical Center12-13-2022 Miscellaneous Notes* Telephone Encounter - Brooklyn Valle LPN - 10/18/2022 2:43 PM EST Requested Prescriptions Pending Prescriptions Disp Refills Dexlansoprazole 60 mg CpDM [Pharmacy Med Name: DEXLANSOPRAZOLE DR 60 MG CAP] 30 capsule 5 Sig: take 1 capsule by mouth before breakfast Patient last seen 10/11/2022 documented in this encounterMercy Health Springfield Regional Medical Center12-12-2022 NotePROCEDURE: XR FOOT RT [...] Electronically authenticated by: NICKI DACOSTA Date: 2022-10-17 18:06[facility]12-12-2022 NotePROCEDURE: XR FOOT RT MIN [...] Electronically authenticated by: NICKI DACOSTA Date: 2022-10-17 18:06[facility]12-12-2022 Miscellaneous Notes* Telephone Encounter - Wali Lavon - 10/17/2022 9:17 AM EST Faxed order, office notes, demographics, and sleep study to: DME name: [facility] fax: [phone] [facility] ph: AL[facility] [place] documented in this encounterMercy Health Springfield [facility] Medical Center12-06-2022 History of Present illness Narrative* [...] (FLONASE) 50 mcg/actuation nasal spray Use 1 [place] in each nostril once daily. carBAMazepine XR (TEGRETOL XR) 400 mg 12 hr tablet Take 400 mg by mouth q 12 HR. ARIPiprazole (ABILIFY) 30 mg tablet Take 30 mg by mouth once daily. albuterol HFA (PROVENTIL HFA, VENTOLIN HFA) 90 mcg/actuation inhaler inhale 2 puffs by mouth INTO THE LUNGS every 4 hours if needed rtfcnjzockv-rqjzcbazc-fkakgwbd (TRELEGY ELLIPTA) 100-62.5-25 mcg Inhale 1 Puff [...] no edema RESPIRATORY: No dyspnea : neg MAJOR ASSEMBLY LINEMAN: neg The remainder of the review of [...] DO 10/11/2022 documented in this encounterMercy Health Springfield [facility] Center12-05-2022 Evaluation note* Encounter Date Diagnosis [...] for rotator cuff healing or recurrent tear [employer] Other 12-01-2022 Evaluation note* Encounter Date Diagnosis [...] note writ ten by Wanda Yang LPN, Director Public Service. Edited and approved by Dr. Beto Snyder MD. 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 She understands the associated risks [...] note writ ten by Lupillo Amezquita MA, Director Public Service. Edited and approved by Dr. Beto Snyder MD. [employer] Other 11-17-2022 Evaluation note* Encounter Date Diagnosis Assessment Notes Treatment Notes Treatment Clinical Notes Sep, Lumbosacral spondylosis without myelopathy (ICD-10 - M47.817) [employer] Other 11-09-2022 Evaluation note* Encounter Date Diagnosis [...] note writ ten by Wanda Yang LPN, Director Public Service. Edited and approved by Dr. Beto Snyder MD. [employer] Other 09-21-2022 NotePROCEDURE: XR ANKLE RT MIN 3 VIEWS, XR FOOT RT MIN 3 VIEWS COMPARISON: 01/06/2021 HISTORY: Pain of right ankle joint FINDINGS: BONES:Remote osteotomy head of the first metatarsal fixed with a single screw. No acute fracture or dislocation. SOFT TISSUES:Negative. No visible soft tissue swelling. EFFUSION:None visible. OTHER: Negative. IMPRESSION: No acute abnormality Electronically authenticated by: NICKI DACOSTA Date: 2022-07-27 19:[address] [place], [place] [address]09-21-2022 NotePROCEDURE: XR ANKLE RT MIN 3 VIEWS, XR FOOT RT MIN 3 VIEWS COMPARISON: 01/06/2021 HISTORY: Pain of right ankle joint FINDINGS: BONES:Remote osteotomy head of the first metatarsal fixed with a single screw. No acute fracture or dislocation. SOFT TISSUES:Negative. No visible soft tissue swelling. EFFUSION:None visible. OTHER: Negative. IMPRESSION: No acute abnormality Electronically authenticated by: NICKI DACOSTA Date: 2022-07-27 19:[address] [place], [place] [address]09-20-2022 Miscellaneous Notes* Telephone Encounter - Silvia Ybarra - 07/26/2022 2:56 PM EDT PA for Dexlansoprazole initiated electronically. Awaiting response [employer] ID# [id number] * Telephone Encounter - Tracy ANDRES - 07/26/2022 1:43 PM EDT Patient needs a prior authorization Medication Order name: Dexlansoprazole 60 mg CpDM Medication: DEXLANSOPRAZOLE 60 MG CAPSULE,BIPHASE DELAYED RELEASE [[id number]] Dispense as Written: No documented in this encounterMercy Health Springfield [facility] Medical Center09-20-2022 History of Present illness Narrative* [...] in the AM and 4 mg PM kkekfmnqjez-rnbwnttul-wihqdzla (TRELEGY ELLIPTA) 100-62.5-25 mcg Inhale 1 Puff [...] (FLONASE) 50 mcg/actuation nasal spray Use 1 [place] in each nostril once daily. carBAMazepine XR [...] which included preparing to see the patient, ryrl-es-jbdr patient care, completing clinical documentation, obtaining and/or reviewing separately obtained history, performing a medically appropriate examination, counseling and educating the pat ient/family/caregiver, ordering medications, tests, or procedures, and care coordination (not separately reported). Mary Obrien MD Colorectal Surgery documented in this encounterMercy Health [facility] Center09-20-2022 Nurse Note* Re Sierra MA [...] Drains: No documented in this encounterMercy Health Springfield [facility] Center08-04-2022 NotePROCEDURE: In the coronal projection, [...] and signed by Quinton Carson on 06/09/2022 [facility]08-02-2022 Miscellaneous Notes* Telephone Encounter - Raquel Mullen - 06/07/2022 3:34 PM EDT Patient needs RX sent to [facility]. The previous was sent to pharmacy which [...] Raquel Mullen documented in this encounterMercy Health [facility] Medical Center07-21-2022 Evaluation note* Encounter Date Diagnosis [...] note writ ten by Lupillo Amezquita MA, Director Public Service. Edited and approved by Dr. Beto Snyder MD. [employer] Other 07-05-2022 Evaluation note* Encounter Date Diagnosis [...] Patient care instructions given in writing by [facility] At Home document. [employer] Other [id number] Miscellaneous Notes* Telephone Encounter - Jet Wong [...] this time. documented in this encounterMercy Health Springfield [facility] Medical Center06-21-2022 Miscellaneous Notes* Telephone Encounter - [...] 03/28. Thanks! documented in this encounterMercy Health Springfield [facility] Medical Center06-17-2022 History of Present illness Narrative* Jessi Sheets APRN.DOOR INSTALLER - 04/22/2022 12:20 PM EDT COLORECTAL SURGERY [...] TONSILLECTOMY HX 07/2021 revision VAGINAL HYSTERECTOMY 2014 [facility] 10/2015 for endometriosis, has remaining both [...] (FLONASE) 50 mcg/actuation nasal spray Use 1 [place] in each nostril once daily. carBAMazepine XR [...] THE LUNGS every 4 hours if needed xlacbxflksx-caxopyqpj-ntfyoqqk (TRELEGY ELLIPTA) 100-62.5-25 mcg Inhale 1 Puff [...] complications of treatment plan: low Jessi Sheets APRN.DOOR INSTALLER Colorectal Surgery documented in this encounterMercy Health Springfield [facility] Medical Center06-17-2022 Nurse Note* Mary Mena MA [...] Drains: No documented in this encounterMercy Health Springfield [facility] Medical Center06-02-2022 Miscellaneous Notes* Telephone Encounter - Rachael - 04/07/2022 12:35 AM EDT Record ID: [id number] Patient name: Mary Leal Date: April 06, [...] it that you would recommend [facility] to a friend or family member? -> likely Please tell me what you liked best about your hospital experience: -> The nurses documented in this encounterMercy Health [facility] Center05-31-2022 NoteHNO ID: [id number] Author: Pravin Ladd MD Service: Colorectal Author Type: Resident Type: Progress Notes Filed: 04/05/2022 7:52 AM Note Text: COLORECTAL SURGERY PROGRESS NOTE Mary Leal [id number] ASSESSMENT AND PLAN Mary Leal is a [...] - General Pravin Ladd MD General Surgery residentAddison Gilbert HospitalBcgltjfd74-10-4406 NoteHNO ID: [id number] Author: Nita Lamas MD Service: Colorectal Author Type: Fellow Type: Progress Notes Filed: 04/04/2022 9:40 AM Note Text: COLORECTAL SURGERY PROGRESS NOTE Mary Leal [id number] ASSESSMENT AND PLAN Mary Leal is a [...] Nita Lamas MD Colorectal Fellow 04/04/2022 9:40 [facility]05-29-2022 NoteHNO ID: [id number] Author: Pravin Ladd MD Service: Colorectal Author Type: Resident Type: Progress Notes Filed: 04/03/2022 8:03 AM Note Text: COLORECTAL SURGERY PROGRESS NOTE Mary Leal [id number] ASSESSMENT AND PLAN Mary Leal is a [...] - General Pravin Ladd MD General Surgery ResidentAddison Gilbert HospitalImvlnkcp92-88-5705 NoteHNO ID: [id number] Author: Nancy Cadena MD Service: Colorectal Author Type: Resident Type: Progress Notes Filed: 04/02/2022 8:34 AM Note Text: COLORECTAL SURGERY PROGRESS NOTE Mary Leal [id number] ASSESSMENT AND PLAN Mary Leal is a [...] Nancy Cadena MD General Surgery Resident, PGY-2 [id number] [id number] NoteHNO ID: [id number] Author: Nancy Cadena MD Service: Colorectal Author [...] 2022 COLORECTAL SURGERY PROGRESS NOTE Mary Leal [id number] ASSESSMENT AND PLAN Mary Leal is a [...] Nancy Cadena MD General Surgery Resident, PGY-2 [id number] NoteHNO ID: [id number] Author: Yolanda Lamb MD Service: Colorectal Author Type: Resident Type: Progress Notes Filed: 03/31/2022 9:08 AM Note Text: COLORECTAL SURGERY PROGRESS NOTE Mary Leal [id number] ASSESSMENT AND PLAN Mary Leal is a [...] RESECTION AND ANASTOMOSIS - General Yolanda Lamb MDAddison Gilbert HospitalIndzslgd07-48-2782 NoteHNO ID: [id number] Author: Pravin Ladd MD Service: Colorectal Author [...] COLORECTAL SURGERY PROGRESS NOTE Mary D Elvis [id number] ASSESSMENT AND PLAN Mary Leal is a 51 year old female with PMHx Asthma, HTN, BPD, Dyslipidemia and colonic inertia who is now s/p Hand assisted TAC, EI takedown + OANH 03/28 - D/C MEDICAL LAB SCIENTIST - Advance to GI soft diet - [...] RESECTION AND ANASTOMOSIS - General Pravin Ladd MDAddison Gilbert HospitalTqljywfy33-32-1473 NoteHNO ID: [id number] Author: ELIZABETH Dias Service: Care Management Author Type: Tea Bag Packer Type: Care Mgt Initial Assessment Filed: 03/29/2022 [...] time ADVANCE DIRECTIVES Current Advance Directive: None Recreation Therapy Teacher Attempted to Assist with AD Completion: Yes [...] Housing Stability: Not on file PATIENT SCREEN Patient/Apparel Embroidery Digitizer Stated Goals: To be cured/healed Under the [...] March 29, 2022 TIME: 3:45 PM PHONE: [phone] [id number] NoteHNO ID: [id number] Author: Pravin Ladd MD Service: Colorectal Author Type: Resident Type: Progress Notes Filed: 04/01/2022 5:50 AM Note Text: COLORECTAL SURGERY PROGRESS NOTE Mary Leal [id number] ASSESSMENT AND PLAN Mary Leal is a 51 year old female with PMHx Asthma, HTN, BPD, Dyslipidemia and colonic inertia who is now s/p Hand assisted TAC, EI takedown + OANH 03/28 - MEDICAL LAB SCIENTIST for pain control - Magnesium replacement for [...] RESECTION AND ANASTOMOSIS - General Pravin Ladd MDAddison Gilbert HospitalZzjumzbj65-10-3904 NoteHNO ID: [id number] Author: Nathanael Craig DO Service: Anesthesiology Author Type: Anesthesiologist Type: Anesthesia Procedure Notes Filed: 03/28/2022 4:16 PM Note Text: ANESTHESIOLOGY PROCEDURE NOTE Peripheral Nerve Block General Information Procedure Start Time/Medication Administration: 03/28/2022 3:50 PM Procedure End time: 03/28/2022 3:55 PM Patient location during procedure: OR Timeout Performed Pre-procedure: timeout performed Consent Obtained: Yes 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: care grocery team member and arm band Reason for [...] 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 and care grocery team member Reason for block: post-op pain [...] March 28, 2022 TIME: 4:14 PM CSN: [id number] NoteHNO ID: [id number] Author: Carmen Stanley APRN.MUSIC ENGINEER Service: Anesthesiology Author Type: Nurse Potato Chip Maker Type: Anesthesia Procedure Notes Filed: 03/28/2022 9:49 AM Note Text: ANESTHESIOLOGY PROCEDURE NOTE Airway General Information Procedure Start Time/Medication Administration: 03/28/2022 9:21 AM Patient location during procedure: OR 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, care grocery team member and patient Staffing MUSIC ENGINEER: Carmen Stanley APRN.MUSIC ENGINEER Performed by: MUSIC ENGINEER Indications and Patient Condition Preoxygenated: yes Difficult [...] March 28, 2022 TIME: 9:49 AM CSN: [id number] NoteHNO ID: [id number] Author: Carmen Stanley APRN.CRNA Service: Anesthesiology Author Type: Nurse Potato Chip Maker Type: Anesthesia Procedure Notes Filed: 03/28/2022 9:49 [...] March 28, 2022 TIME: 9:48 AM CSN: [id number] Miscellaneous Notes* Telephone Encounter - Jet Wong [...] colon. Would like a call back at [phone] documented in this encounterMercy Health Springfield [facility] Medical Center05-10-2022 Miscellaneous Notes* Telephone Encounter - Jennie Moreno RN - 03/15/2022 2:39 PM EDT Outside medical record EGD H Pylori biopsy received by fax. Scanned into [employer] under scanned documents. Hard copy handed to Dr. Masters. Per Dr Masters- please call patient and let her know the H Pylori biopsy is negative. Called patient . Message relayed. No questions at this time. * Telephone Encounter - Karthikeyan Turk RN - 03/15/2022 2:21 PM EDT Called [facility] and I was transferred to medical records. Requesting a cover sheet with the request result be faxed to them at [phone]. H Pylori result request faxed with confirmation. * Telephone Encounter - Karthikeyan Turk RN - 03/15/2022 2:21 PM EDT Images from the original note were not included. DO Leo Mariano Sp Dd Clinical Pool Please contact [facility] [phone] to see if the H pylori biopsy is back yet from her EGD there documented in this encounterMercy Health Springfield [facility] Medical Center05-10-2022 Evaluation note* Encounter Date Diagnosis [...] note writ ten by Wanda Yang LPN, Director Public Service. Edited and approved by Dr. Beto Snyder MD. [employer] Other 05-10-2022 Miscellaneous Notes* Telephone Encounter - Silvia Ybarra - 03/15/2022 1:24 PM EDT PA for Dexilant renewal initiated through [employer]. Awaiting response ID# [id number] Rx BIN [id number] Rx PCN MCAIDOH Rx Grp [id number] documented in this encounterMercy Health Springfield [facility] Medical Center05-10-2022 Miscellaneous Notes* Telephone Encounter - [...] this time. documented in this encounterMercy Health Springfield Regional Medical Center05-10-2022 History of Present illness Narrative* [...] seem be musculoskeletal in nature.EGD done in [facility] showed some gastritis and duodenitis. [...] (FLONASE) 50 mcg/actuation nasal spray Use 1 [place] in each nostril once daily. carBAMazepine XR [...] THE LUNGS every 4 hours if needed lasapzmzgkn-tmzflpxwp-nyrendit (TRELEGY ELLIPTA) 100-62.5-25 mcg Inhale 1 Puff [...] no edema RESPIRATORY: No dyspnea : neg MAJOR ASSEMBLY LINEMAN: neg The remainder of the review of [...] DO 03/15/2022 documented in this encounterMercy Health Springfield [facility] Medical Center05-09-2022 Instructions* Patient Instructions* Urmila Alexander APRN.DOOR INSTALLER - 03/14/2022 10:43 AM EDT PATIENT PREOPERATIVE INSTRUCTIONS Mary Obrien MD has scheduled you for your procedure at this [facility] center: [facility]: [phone] --[id number] [address]. Please check in on the1st floor at [...] Procedures: - YOU MUST HAVE A RESPONSIBLE WIND FARM SUPPORT SPECIALIST TAKE YOU HOME. A FENCE POST DRIVER OR BLACK OXIDE OPERATOR CANNOT BE MADE A RESPONSIBLE WIND FARM SUPPORT SPECIALIST. - We recommend that a responsible [...] Advance Directive, please fax a copy to [phone] or email to for it to be [...] that day. documented in this encounterMercy Health Springfield Regional Medical Center05-09-2022 History and physical note * [...] vaccine, age 12+ yr (PFIZER-BIONTECH - [facility]) CHIEF COMPLAINT: reverse [...] fevers. Neurological: No history of TIA's, stroke, CLINICAL PHARMACIST tumor, impaired sensorium, hemiplegia, paraplegia orquadraplegia. No [...] > 1 time per night or hematuria. MAJOR ASSEMBLY LINEMAN: Negative for abnormal vaginal bleeding, abnormal vaginal [...] every 4 hours if needed Taking Yes gfxfibeimcn-vcbakbfri-twbeachi (TRELEGY ELLIPTA) 100-62.5-25 mcg Inhale 1 Puff [...] (FLONASE) 50 mcg/actuation nasal spray Use 1 [place] in each nostril once daily. No medication [...] or any previous visit (from the past 21339 hour(s)). EKG: Assessment HTN (hypertension) Assessment: Managed [...] of difficult airway No abnormal airway history PJO3FH3-OZWw Score: Age: <65 Sex: Female Hypertension history: [...] PAGER/CONTACT #: documented in this encounterMercy Health Springfield [facility] Medical Center04-25-2022 Miscellaneous Notes* Telephone Encounter - [...] Monday, 03/02, at 0900 - routed to [employer] to make it legit. Please advise. documented in this encounterMercy Health Springfield Regional Medical Center04-15-2022 Instructions* Patient Instructions* Nelsy Chávez APRN.CNP - 02/18/2022 1:18 PM EDT Healing as expected from surgery. You have a pinpoint area of suture just under the vaginal epithelium surface that may need more time to fully heal. Please call the office if you would like to try vaginal estrogen cream or with any questions/concerns. documented in this encounterMercy Health Springfield Regional Medical Center04-15-2022 History of Present illness Narrative* [...] no Pain: no Abnormal Vaginal Discharge: no MAJOR ASSEMBLY LINEMAN HISTORY: Last pap: cannot remember; Last mammogram: She has never had a mammogram LMP: No LMP recorded. Patient has had a hysterectomy.; Menopause n/a: Menstrual history: NA; Deliveries: I have confirmed and edited as necessary, the PFSH obtained by others. Nelsy Chávez APRN.DOOR INSTALLER Brisket Puller offered: Patient declines. OBJECTIVE: There were no [...] if this helps. She is traveling to [place] to see her ailing father for two weeks and would like to wait for now to see if things resolve. She knows she can call the office if she changes her mind and would like to trial vaginal estrogen Nelsy Chávez APRN.KWESI documented in this encounterMercy Health Springfield [facility] Medical Center04-08-2022 History of Present illness Narrative* [...] (timed and untimed codes) : 15 Flaca Bartholmoew PT documented in this encounterMercy Health Springfield [facility] Medical Center04-05-2022 Nurse Note* Re Sierra MA [...] Drains: No documented in this encounterMercy Health Springfield Regional Medical Center04-05-2022 History of Present illness Narrative* [...] (FLONASE) 50 mcg/actuation nasal spray Use 1 [place] in each nostril once daily. carBAMazepine XR [...] THE LUNGS every 4 hours if needed hbwckdljacv-uftsuuqei-aimgdboa (TRELEGY ELLIPTA) 100-62.5-25 mcg Inhale 1 Puff [...] medical complications of surgery including DVT/PE, PNA, DE, stroke, and . The patient understands these risks and is in agreement with proceeding. Medical Decision Making: Data Reviewed: Tests & Documents Reviewed/ordered: Review of prior notes from myself, OR, Dr. Wang Review of prior operative reports I have discussed Mary Leal's treatment plan and/or results with the patient. Mary Obrien MD Colorectal Surgery documented in this encounterMercy Health Springfield [facility] Medical Center04-05-2022 History of Present illness Narrative* Magali Mitchell, ACCOUNTS PAYABLE MANAGER.DOOR INSTALLER - 02/08/2022 11:04 AM EDT Female Pelvic [...] you received about pain medications helpful? Yes Brisket Puller offered:Patient declines OBJECTIVE: BP 113/76 Pulse 74 [...] 6 month Patient expressed understanding. Magali Mitchell APRN.DOOR INSTALLER documented in this encounterMercy Health Springfield Regional Medical Center03-29-2022 Miscellaneous Notes* Telephone Encounter - Steffi Ross LPN - 02/01/2022 11:08 AM EDT [facility] 06[facility]10[facility] Pharmacy and Rx request verified. Please file if appropriate. Thank you Steffi Ross LPN documented in this encounterMercy Health Springfield Regional Medical Center03-28-2022 NoteHNO ID: [id number] Author: Newton Woodward, PT Service: ? Author Type: Physical Therapist Type: Progress Notes Filed: 01/31/2022 1:23 PM Note Text: Episode Visit Count: 3 Therapist That Will Oversee The Plan Of Care: La then transfer to [place] garden[place] Start of Care Date: 01/18/22 Onset Date: [...] Service Patient transferring care to: [facility] SUBJECTIVE: Patient Reason for Visit: lack of [...] untimed codes) : 40 Newton Woodward PT, [facility]03-28-2022 History of Present illness Narrative* [...] Service Patient transferring care to: [facility] Flaca Bartholomew SUBJECTIVE: Patient Reason for Visit: [...] Newton Woodward PT, DPT [place]Way[place] [address]-21-2022 NoteHNO ID: [id number] Author: Newton Woodward, DILLAN Service: ? Author Type: Physical Therapist Type: Progress Notes Filed: 01/24/2022 1:23 PM Note Text: Episode Visit Count: 2 Therapist That Will Oversee The Plan Of Care: La then transfer to [place] [facility] Start of Care Date: 01/18/22 Onset Date: [...] untimed codes) : 45 Newton Woodward PT, [facility]03-15-2022 NoteHNO ID: [id number] Author: Jessi Isaacs PT Service: ? Author Type: Physical Therapist Type: Progress Notes Filed: 01/18/2022 1:56 PM Note Text: Episode Visit Count: 1 Therapist That Will Oversee The Plan Of Care: La then transfer to [facility] Start of Care Date: 01/18/22 Onset Date: [...] Planned: 8 Planned Treatment Interventions: Therapeutic exercise (16321);Neuromuscular re-education (59332);Manual therapy (50909);Therapeutic activities (11081);Self-chcf management (57148);Patient/Family/Caregiver Education PLAN FOR NEXT VISIT: PFM dynamics; biofeedback Patient demonstrates good understanding of plan of care and treatment. The above goals and plan of care were discussed and agreed upon by patient/family. Transfer of Care Due To: Closer to Home (patient to transfer in February 2022) Patient transferring care to: [facility] Bartholomew SUBJECTIVE: Mary Leal is a [...] life. 52 (more content not included)...[facility] [id number] NoteHNO ID: [id number] Author: Moni Munguia RN Service: Care Management [...] Primary Care Physician Name/Phone: Eliceo Gómez Jr [phone] TRANSPORTATION ARRANGEMENTS: Transportation Arrangements: N/A The Pt is accepted by [facility] for new ostomy care. The SOC will be within 24 to 48 hrs. The pt will be contacted directly with the SOC. The Pt verbalized agreement with this dc plan. SIGNATURE: Moni Munguia RN PATIENT NAME: Mary Leal DATE: December 27, 2021 TIME: 4:14 PM PAGER/CONTACT #: [phone] [id number] NoteHNO ID: [id number] Author: Parish Celeste DO Service: Colorectal Author [...] - Pain and nausea control -> d/c MEDICAL LAB SCIENTIST - D/c entereg - Culturelle - Continue [...] 0659 12/27/21 07 - 12/28/21 0659 Shift 7691-8639 0707-0271 6438-6776 24 Hour Total 8655-7446 4913-4903 3649-5091 24 Hour Total INTAKE PO 60 60 PO 60 60 IV 2100 2100 Volume (mL) (lactated ringers iv infusion) 2099 2099 Shift Total 2160 2160 OUTPUT Urine 1352 712 1481 2300 200 200 Void (ml) 300 1000 1300 200 200 Output ( Indwelling Urinary Catheter 12/24/21 Call 16 Fr) 1000 1000 Emesis 0 0 Emesis (ml) 0 0 Ostomy 250 125 375 Ileostomy 1 250 125 375 # of BMs Number of BMs 0 x 0 x Shift Total 7498 447 6703 2675 200 200 Weight (kg) 82.1 82.1 82.1 82.1 82.1 82.1 82.1 82.1 Recent Labs 12/26/21 0755 12/25/21 0606 WBC -- 5.96 HB -- 11.6 HCT -- 35.2* PLT -- 271 NA 139 141 K 4.0 4.0 CHLOR 102 104 CO2 28 28 CREAT 0.62* 0.72 BUN 10 12 GLUC 71 91 CA 8.5 8.5 Parish Celeste DO General Surgery, PGY-4 [id number] After 6 pm and on the weekends please page [phone] 12-26-2021 NoteHNO ID: [id number] Author: Jenifer Ayala MD Service: Colorectal Author Type: Fellow Type: Progress Notes Filed: 12/26/2021 12:13 PM Note Text: GENERAL SURGERY PROGRESS NOTE Name: Mary Leal 12/26/2021 12:11 PM Interval Events: Patient doing well post-operatively. No acute events overnight. Tolerating CLD diet without nausea or vomiting. Stoma productive of bilious fluid + gas Pain well controlled with MEDICAL LAB SCIENTIST + oral pain medication (feels most relief from po oxycodone). Assessment and Plan: 51 year old female with pelvic organ prolapse and chronic constipation, likely slow transit but with possible component of pelvic outlet obstruction and with discordant testing. Patient underwent laparoscopic protopexy on 12/24/21 surgery was uneventful. Post-operative course has been uncompliacted. Pain control- Tylenol Gabapentin Toradol MEDICAL LAB SCIENTIST: Dilaudid, tegretol, klonopin, requip, trintellix, oxycodone Cardiac- [...] any questions or concerns page [facility] Blue [id number] Objective Physical exam: BP 117/66 Pulse 77 [...] 0659 12/26/21 07 - 12/27/21 0659 Shift 8724-6733 1163-2476 6568-1218 24 Hour Total 8085-6946 0490-0322 3976-3657 24 Hour Total INTAKE PO 60 60 PO 60 60 IV 213 668 881 Volume (mL) (lactated ringers iv infusion) 213 668 881 Shift Total 273 668 941 OUTPUT Urine 379 653 5343 1000 Void (ml) 0 0 Output ( Indwelling Urinary Catheter 12/24/21 Call 16 Fr) 495 678 5079 1000 Emesis 0 0 Emesis (ml) 0 0 Ostomy 100 100 Ileostomy 1 100 100 # of BMs Number of BMs 0 x 0 x Shift Total 845 053 9095 1000 Weight (kg) 82.1 82.1 82.1 82.1 [...] Diagnosis Date Noted - Pelvic floor dysfunction 12/24/2021[facility] [id number] NoteHNO ID: [id number] Author: Sonido Owen MD Service: Colorectal Author [...] been uncompliacted. Pain control- Tylenol Gabapentin Toradol MEDICAL LAB SCIENTIST: Dilaudid, tegretol, klonopin, requip, trintellix Cardiac- Vitals: [...] Owen MD General Surgery PGY 2 Pg [phone] For any questions or concerns page [facility] Blue [id number] Objective Physical exam: BP 111/61 Pulse 86 [...] 0659 12/25/21 07 - 12/26/21 0659 Shift 4648-3208 2514-7994 1252-3320 24 Hour Total 6031-1216 8911-2983 1652-9832 24 Hour Total INTAKE PO 240 120 360 PO 240 120 360 IV 3100 3100 Volume (mL) (lactated ringers iv infusion) 1800 1800 Volume (mL) (lactated ringers iv infusion) 1300 1300 Shift Total 3100 154 454 8749 OUTPUT Urine 200 068 766 7688 OR Urine Output 200 200 Output ( Indwelling Urinary Catheter 12/24/21 Call 16 Fr) 300 500 800 Emesis 0 0 0 Emesis (ml) 0 0 0 Ostomy 0 0 0 Ileostomy 1 0 0 0 # of BMs Number of BMs 0 x 0 x 0 x Blood 50 50 Estimated Blood loss 50 50 Shift Total 250 681 972 4293 Weight (kg) 82.1 82.1 82.1 82.1 82.1 [...] Diagnosis Date Noted - Pelvic floor dysfunction 12/24/2021[facility] [id number] NoteHNO ID: [id number] Author: Carmen Stanley APRN.CRNA Service: Anesthesiology Author Type: Nurse Potato Chip Maker Type: Anesthesia Procedure Notes Filed: 12/24/2021 8:44 [...] Imaging Guidance Used: No SIGNATURE: Carmen Stanley APRN.MUSIC ENGINEER PATIENT NAME: Mary Leal DATE: December 24, 2021 TIME: 8:44 AM CSN: [id number] NoteHNO ID: [id number] Author: Carmen Stanley APRN.MUSIC ENGINEER Service: Anesthesiology Author Type: Nurse Potato Chip Maker Type: Anesthesia Procedure Notes Filed: 12/24/2021 8:44 AM Note Text: ANESTHESIOLOGY PROCEDURE NOTE Airway General Information Procedure Start Time/Medication Administration: 12/24/2021 8:22 AM Patient location during procedure: OR 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, care grocery team member and patient Staffing Anesthesiologist: Chayito Ojeda MD MUSIC ENGINEER: Carmen Stanley APRN.MUSIC ENGINEER Performed by: MUSIC ENGINEER and anesthesiologist Indications and Patient Condition Preoxygenated: [...] December 24, 2021 TIME: 8:43 AM CSN: [id number] Evaluation note* Encounter Date Diagnosis Assessment Notes [...] note writ ten by Lupillo Amezquita MA, Director Public Service. Edited and approved by Dr. Beto Snyder MD. [facility] [employer] Other 11-01-2021 Evaluation note* Encounter Date Diagnosis [...] note writ ten by Lupillo Amezquita MA, Director Public Service. Edited and approved by Dr. Beto Snyder MD. [facility] Other 10-14-2021 Evaluation note* Encounter Date Diagnosis [...] no improvement in 2 to 3 days. [facility] Other 10-08-2021 Evaluation note* Encounter Date Diagnosis [...] Patient care instructions given in writting by [facility] document [facility] Other 10-07-2021 Evaluation note* Encounter Date Diagnosis [...] Aug, Other chronic pain (ICD-10 - G89.29) [facility] Other 09-22-2021 Evaluation note* Encounter Date Diagnosis [...] Jul, Other chronic pain (ICD-10 - G89.29) [facility] Other 03-01-2021 Note [id number]:127[facility] 01-04-2021 NoteCystoscopy with Botox injection ? [...] if you have a fever over 100 degrees.[facility] 11-11-2020 NoteChief Complaint Pt is here [...] Francie BENSON, Dawna Feldman [address] [place] [address]- [phone] Additional Instructions: F/u in 1yr. Patient Education [...] deficit disorder Bipolar disorder (more content not included)...[facility] Comment on above:Result Comment: Electronically Signed By: Francie BENSON, Dawna Feldman\.br\Date and Time Signed: 11/11/2111:16 EST\.br\Electronically Co-Signed By: Christy Gill MA\.br\Date and Time Co-Signed: 11/11/20 12:07 [id number]:127[facility] Narrative - Reported* MARY LEAL is being seen for an initial evaluation of. * 52-year-old female seen in cardiology consultation at the request of her primary care physician forelevated troponin while in [facility] this past spring that was [...] was simply at small type II non- DE troponin elevationrelated to inflammation and gastritis and [...] colectomy. She can follow-up as needed otherwise. -[facility]-Ambrosio Lopez DO Work Phone: Evaluation note* Diagnosis Pelvic floor dysfunction- Primary Pelvic muscle wasting Lack of coordination Follow-up examination after colorectal surgery Follow-up examination, following other surgery documented in this encounter [facility] note* Diagnosis Gastroesophageal reflux disease, unspecified whether esophagitis present documented in this encounter [facility] note* Diagnosis Follow-up examination after colorectal surgery- Primary Follow-up examination, following other surgery documented in this encounter [facility] note* Diagnosis Post-operative state- Primary Other postprocedural status Yeast infection of the skin Candidiasis of skin and nails documented in this encounter [facility] note* Diagnosis Pelvic floor dysfunction- Primary Pelvic muscle wasting Lack of coordination Follow-up examination after colorectal surgery Follow-up examination, following other surgery documented in this encounter [facility] note* Diagnosis Postoperative state- Primary Other postprocedural status Attention to ileostomy ([facility]) Attention to ileostomy documented in this encounter [facility] note* Diagnosis Preop examination- Primary Preoperative [...] Attention to ileostomy documented in this encounter [facility] note* Diagnosis Gastroesophageal reflux disease, unspecified whether esophagitis present Chronic idiopathic constipation Unspecified constipation Attention to ileostomy (HCC) Attention to ileostomy documented in this encounter [facility] note* Diagnosis Follow-up examination after colorectal surgery- Primary Follow-up examination, following other surgery Pelvic floor dysfunction Pelvic muscle wasting documented in this encounter [facility] noteNo InformationN[facility] [employer] Other Evaluation noteNoBirdDog Other Evaluation note* Diagnosis Follow-up examination after colorectal surgery- Primary Follow-up examination, following other surgery Periumbilical abdominal pain Abdominal pain, periumbilic Outlet dysfunction constipation Colonic inertia Other functional disorders of intestine [facility]No [facility] information [facility] Work Phone: Evaluation note* Diagnosis Gas bloat syndrome- Primary Chronic idiopathic constipation Unspecified constipation Gastroparesis [facility] Diagnosis Gastroesophageal reflux disease, unspecified whether esophagitis present [facility]* Diagnosis Gastroparesis- Primary [facility]* Diagnosis CHUCKIE (obstructive sleep apnea)- Primary Obstructive sleep apnea (adult) (pediatric) [facility]* Diagnosis Pre-op exam- Primary Preoperative examination, unspecified Primary hypertension Unspecified essential hypertension Mild persistent asthma without complication Unspecified asthma Gastroparesis CHUCKIE (obstructive sleep apnea) Obstructive sleep apnea (adult) (pediatric) [facility]* Diagnosis CHUCKIE (obstructive sleep apnea)- Primary Obstructive sleep apnea (adult) (pediatric) [facility]* Diagnosis Chronic idiopathic constipation- Primary Unspecified constipation Nausea Nausea alone [facility]* Diagnosis Gastroesophageal reflux disease with esophagitis without hemorrhage- Primary [facility]* Diagnosis Colonic inertia- Primary Other functional disorders of intestine Pelvic floor dysfunction Pelvic muscle wasting Nausea Nausea alone Gastroparesis [facility]* Diagnosis Pylorospasm- Primary Functional dyspepsia Dyspepsia and other specified disorders of function of stomach Gastroesophageal reflux disease with esophagitis without hemorrhage [facility]* Diagnosis Gastroesophageal reflux disease, unspecified whether esophagitis present [facility]* Diagnosis CHUCKIE (obstructive sleep apnea)- Primary Obstructive sleep apnea (adult) (pediatric) [facility]* Diagnosis Pylorospasm- Primary Functional dyspepsia Dyspepsia and other specified disorders of function of stomach Gastroesophageal reflux disease with esophagitis without hemorrhage [facility]* Diagnosis Gastroparesis- Primary [facility]* Diagnosis Preop examination- Primary Preoperative examination, unspecified Nausea Nausea alone CHUCKIE (obstructive sleep apnea) Obstructive sleep apnea (adult) (pediatric) Mild persistent asthma without complication Unspecified asthma Gastroesophageal reflux disease, unspecified whether esophagitis present Gastroparesis documented in this encounter [facility] note* Diagnosis 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 Personal history of other diseases of digestive system [facility] Diagnosis Gastroesophageal reflux disease, unspecified whether esophagitis present [facility]* Diagnosis Incomplete bladder emptying- Primary Constipation, unspecified constipation type Urinary urgency Urgency of urination Urinary frequency Nocturia documented in this encounter [facility] note* Diagnosis Upper abdominal pain- Primary Abdominal pain, other specified site [facility]* Diagnosis Burning with urination- Primary Dysuria documented in this encounter [facility] note* Diagnosis Bety vaginitis Candidiasis of vulva and vagina documented in this encounter [facility] note* Diagnosis Pre-op examination- Primary Preoperative [...] urge Urge incontinence documented in this encounter [facility] note* Diagnosis Educational circumstances- Primary Educational circumstance Urinary urgency Urgency of urination Urinary frequency OAB (overactive bladder) Hypertonicity of bladder Urinary incontinence, urge Urge incontinence documented in this encounter [facility] note* Diagnosis Post-operative state- Primary Other postprocedural status [facility]* Diagnosis Procedure and treatment not carried out for other reasons- Primary documented in this encounter [facility] note* Diagnosis Post-operative state- Primary Other postprocedural status Vaginal burning Other specified symptom associated with female genital organs documented in this encounter [facility] note* Diagnosis Vaginal burning- Primary Other specified symptom associated with female genital organs [facility]* Diagnosis Blackford grade D esophagitis Early satiety Unintentional weight loss Loss of weight Gastroparesis [facility]* Diagnosis Gas bloat syndrome documented in this encounter [facility] note* Diagnosis Pain Generalized pain Pre-op evaluation- [...] apnea (adult) (pediatric) documented in this encounter [facility] note* Diagnosis Pre-op evaluation- Primary Preoperative examination, [...] (pediatric) [facility] Diagnosis Chronic abdominal pain- Primary Abdominal pain, unspecified site Avoidant-restrictive food intake disorder (ARFID) Bloating Flatulence, eructation, and gas pain Gastroparesis [facility] Diagnosis Anxiety- Primary Anxiety state, unspecified documented [facility]* Diagnosis Urinary frequency Urinary urgency Urgency of urination Burning with urination Dysuria Erythema Unspecified erythematous condition Chronic vulvitis Unspecified vaginitis and vulvovaginitis Night sweats Generalized hyperhidrosis documented in this encounter [facility]* Diagnosis Granulation tissue Hymen abnormality documented in this encounter [facility]* Diagnosis Degenerative disc disease, cervical- Primary documented in this encounter [facility]* Diagnosis PCB (post coital bleeding)- Primary Postcoital bleeding Granulation tissue documented in [facility] encounter [facility]* Diagnosis PCB (post coital bleeding) Postcoital bleeding Granulation tissue Hymen abnormality documented in this encounter [facility]* Diagnosis Peroneal tendinitis of right lower extremity- Primary Bilateral foot pain Exostosis of bone of foot documented in this encounter [facility]* Diagnosis Soft tissue mass- Primary Disorders of soft tissue, unspecified Gastro-esophageal reflux disease without esophagitis Gastroparesis Mild intermittent asthma, unspecified whether complicated (CMS/HCC) documented in this encounter [facility]* Diagnosis Oral candidiasis- Primary Candidiasis of mouth Tongue pain Glossodynia documented in this encounter [facility]* Diagnosis Chronic diarrhea- Primary Diarrhea Chronic abdominal pain Abdominal pain, unspecified site Bloating Flatulence, eructation, and gas pain Inadequate oral intake Other symptoms concerning nutrition, metabolism, and development Blackford grade D esophagitis Gastroparesis [facility] Diagnosis Aftercare following surgery Encounter for other specified aftercare Aftercare following surgery Encounter for other specified aftercare documented in this encounter [facility]* Diagnosis Aftercare following surgery Encounter for other specified aftercare documented in this encounter [facility]* Diagnosis Seborrheic keratosis Lentigines Capillary angioma Nevus, non-neoplastic documented in this encounter [facility]* Diagnosis Restless legs syndrome Restless legs syndrome (RLS) documented in this encounter [facility]* Diagnosis Other migraine without status migrainosus, not intractable documented [facility]* Diagnosis CHUCKIE (obstructive sleep apnea)- Primary Obstructive sleep apnea (adult) (pediatric) Pre-op testing- Primary Unspecified pre-operative examination CHUCKIE (obstructive sleep apnea) Obstructive sleep apnea (adult) (pediatric) documented [facility]* Diagnosis Other migraine without status migrainosus, not intractable- Primary [facility] Diagnosis CHUCKIE (obstructive sleep apnea)- Primary Obstructive sleep apnea (adult) (pediatric) [facility]* Diagnosis Other migraine without status migrainosus, not intractable [facility]* Diagnosis Onset Date Resolution Status Admit Date Lumbar radiculopathy acute April 30, 2025 3:53pm Polyneuropathy acute April 30, 2025 3:53pm [facility] Work Phone: History general Narrative - Reported* Type Description [...] see above list Hospitalization History respiratory 02/2020 [facility] Other [employer] general Narrative - ReportedNoHaoxiangni [employer] Other history general Narrative - Reported* Type [...] see above list Hospitalization History respiratory 02/2020 [facility] Other Hospital Discharge instructionsAmbulatory Orders* Referral to Rheumatology Location: None Selected [facility] Work Phone: InstructionsNot on filedocumented in this [...] Procedures CAPSULE ENDOSCOPY SMART Isra Masters DO [address] [place] [id number] [facility] Disease [place] [id number] Referral ID Status Reason Start Date Expiration Date Visits Requested Visits Authorized [id number] Pending Review Auto-Generat ed Referral 10/11/2022 10/11/2023 1 1 [facility] for referral (narrative)* Outpatient Procedure (Routine) - Pending Review Specialty Diagnoses / Procedures Referred By Gustavo salazar Referred To Contact [facility] Diagnoses Chronic idiopathic constipation Procedures SIGMOIDOSCOPY SIGMOIDOSCOPY FLX DX W/COLLJ SPEC BR/WA IF PFRMD Isra Masters DO [address] [place] [address] [facility] Disease [place] [id number] Referral ID Status Reason Start Date Expiration Date Visits Requested Visits Authorized [id number] Pending Review Auto-Generat ed Referral 11/30/2022 11/30/2023 1 1 [facility] for referral (narrative)* Outpatient Procedure (Routine) - Pending Review Specialty Diagnoses / Procedures Referred By Gustavo salazar Referred To Contact [facility] Diagnoses Gastroparesis Procedures EGD - THERAPEUTIC, EUS, OR TUBE INTERVENTIONS ESOPHAGOGASTRODUODENOSC OPY TRANSORAL DIAGNOSTIC STOMACH SURGERY PROCEDURE UNLISTED Grubic, Winston D, [place] [address] [facility] [address] [place], [place] [id number] Referral ID Status Reason Start Date Expiration Date Visits Requested Visits Authorized [id number] Pending Review Auto-Generat ed Referral 01/11/2023 01/12/2024 1 1 [facility] for referral (narrative)* Outpatient Procedure (Routine) - Pending Review Specialty Diagnoses / Procedures Referred By Contac t Referred To Contact [facility] Diagnoses Incomplete bladder emptying Urinary urgency Urinary frequency Nocturia Procedures URODYNAMICS WHI COMPLX CYSTOMETRO W/VOID PRESS&URETHRAL PROFILE Nelsy Chávez APRN.DOOR INSTALLER [address] [phone] [place] [id number] Referral ID Status Reason Start Date Expiration Date Visits Requested Visits Authorized [id number] Pending Review Auto-Generat ed Referral 07/31/2023 07/30/2024 1 1 [facility] for referral (narrative)* Consultation (Routine) - Open Specialty Diagnoses / Procedures Referred By Contac t Referred To Contact Family Medicine Diagnoses Upper abdominal pain Lev Ritter APRN DOOR INSTALLER [address] [place] [phone] [facility] [address] [facility] [place] [address] Referral ID Status Reason Start Date Expiration Date Visits Re quested Visits Authorized [id number] Open 08/12/2023 09/12/2024 1 1 [facility] for referral (narrative)* Consultation (Routine) - New Request Specialty Diagnoses / Procedures Referred By Contac t Referred To Contact Psychology Diagnoses Avoidant-restrictive food intake disorder (ARFID) Chronic abdominal pain Padmaja Llamas MD, PhD [address] [address] [place] [address] Referral ID Status Reason Start Date Expiration Date V isits Requested Visits Authorized [id number] New Request 08/09/2024 09/03/2025 1 1 * Adjunctive Therapy (Routine) - New Request Specialty Diagnoses / Procedures Referred By Contac t Referred To Contact Nutrition and Dietetics Diagnoses Chronic abdominal pain Bloating Gastroparesis Padmaja Llamas MD, PhD [address] [place] [address] Referral ID Status Reason Start Date Expiration Date V isits Requested Visits Authorized [id number] New Request 08/09/2024 09/03/2025 1 1 * Radiology (Routine) - New Request Specialty Diagnoses / Procedures Referred By Contac t Referred To Contact Diagnoses Chronic abdominal pain Bloating Procedures HYDROGEN (H2) BREATH TEST Padmaja Llamas MD, PhD [address] [place] [address] [place] [address] Referral ID Status Reason Start Date Expiration Date V isits Requested Visits Authorized [id number] New Request 08/09/2024 09/03/2025 1 1 [facility] (n[facility]ative)No reason for referral information availableUniversity [facility]als [facility] Work Phone: Reason for visit NarrativeDISCUSS OTHER OPTIONS PR[facility] Other Reason for visit NarrativeRECHECK CERVICAL PAIN DISCUSS PROC[facility]ole[facility] hospital [employer] Other Reason for visit Narrative* Outpatient Procedure (Routine) - Closed Specialty Diagnoses / Procedures Referred By Contac t Referred To Contact [facility] Diagnoses Gastroparesis Procedures GI TRANSIT & PRES RAVINDER WIRELESS CAPSULE W/INTERP Isra Masters DO [address] [place] [address] [facility] [place] [address] [place] [address] Referral ID Status Reason Start Date Expiration Date Visits Re quested Visits Authorized [id number] Closed 11/08/2022 11/05/2023 1 1 [facility] Summary Purpose Family History Unknown Family Member [...] history of mental disorder Unknown Advance Directives Documents on File Type Date Recorded Patient [employer] Expl anation Advance Directive(s) 10/13/2021 4:09 PM Advance Directive(s) 10/14/2020 8:14 AM Documents on File Type Date Recorded Patient Apparel [employer] Digitizer Expl anation Advance Directive(s) 10/13/2021 4:09 PM Advance Directive(s) 10/14/2020 8:14 AM Documents on File Type Date Recorded Patient Apparel [employer]ro[employer] Digitizer Expl anation Advance Directive(s) 03/21/2022 1:42 PM [...] Isra Masters DO [address] [place] [address] Referral ID Status Reason Start Date Expiration Date Visits Re quested Visits Authorized [id number] Closed 1 1 Referral ID Status Reason Start Date Expiration Date V isits Requested Visits Authorized [id number] Pending Review 1 1 Specialty Diagnoses / Procedures Referred By Contac t Referred To Contact CT IMAGING Diagnoses Periumbilical abdominal pain Procedures CT ABD/PEL W IVCON CT ABD & PELVIS W/[place] [address] [place] [address] Ct Imaging Referral ID Status Reason Start Date Expiration Date Visits Requested Visits Authorized [id number] Pending Review Auto-Generat ed Referral 08/02/2022 08/25/2023 1 1 Reason BILATERAL SHOULDER P AIN Diagnosis 1 Shoulder pain (M25.5 19) Referral Organization [facility] Referring Provider First Name Beto Referring Provider Last Name Steven Referring Provider Specialty Pain Medici ne Referred Organization [facility] Referred Provider Beto Cartagena Referred Address [address] [place], [place],[address] Referred Provider Specialty Orthopedic S urgery Referral Priority Routine Referral Appointment Date 2022-10-10 General Notes Kim Manley 10:01:46 AM >patient already scheduled with [facility] 10/10/22 at 1:30pm. Sending p2p at this time Referral ID Status Reason Start Date Expiration Date Visits Re quested Visits Authorized [id number] Closed 1 1 Specialty Diagnoses / Procedures Referred By Contac t Referred To Contact Diagnoses Blackford grade D esophagitis Early satiety Unintentional weight loss Gastroparesis Procedures DIAGNOSTIC UPPER ENDOSCOPY WV ESOPHAGOGASTRODUODENOSCOPY TRANSORAL DIAGNOSTIC Padmaja Llamas MD, PhD [address] [place] [address] Referral ID Status Reason Start Date Expiration Date V isits Requested Visits Authorized [id number] New Request 03/06/2024 03/31/2025 1 1 Specialty Diagnoses / Procedures Referred By Contac t Referred To Contact Diagnoses Other migraine without status migrainosus, not intractable Pauline Christensen MD [address] [place] [address] Referral ID Status Reason Start Date Expiration Date V isits Requested Visits Authorized [id number] Pending Review 05/15/2024 05/15/2025 1 1 Referral ID Status Reason Start Date Expiration Date V isits Requested Visits Authorized [id number] Pending Review 05/15/2024 05/15/2025 1 1 Chief Complaint and Reason for Visit Chief Complaint M25.519 M25.569 R52 Chief Complaint M25.519 M25.569 R52 bilateral shoulder pain Chief Complaint M76.821/right foor p ain Chief Complaint M76.821/right foor p ain chest tightness dizzy sob Chief Complaint r11.0 r10.11 Chief Complaint M76.71 Chief Complaint M76.71 Unknown Chief Complaint Admit Date cervical spondylosis, radiculopathy [facility] 2023 2:53pm Chief Complaint Admit Date cervical spondylosis, radiculopathy [facility] 2023 2:53pm M54.12 October 09, 2024 8 [...] Chief Complaint Admit Date cervical spondylosis, radiculopathy [facility] 2023 2:53pm M54.12 October 09, 2024 8 [...] cervical spondylosis, radiculopathy [facility] 2023 2:53pm M54.12 October 09, 2024 8 [...] radiculopathy February 25, 2025 7:01am Chief Complaint Admit Date soof February 17, 2025 7:4 4am thoracic radiculopathy February 25, 2025 7:01am EMG BLE per Dr. Everett Valdez April 3:53pm Reason for Visit Admit Date Lumbar radiculopathy April 30, 2025 3:5 3pm Polyneuropathy April 30, 2025 3:53 pm Chief Complaint * Patient is a 53-year-old female who returns at the request of her primary care physician with episodic chest discomfort associated weakness, dizziness, diaphoresis with recent work-up that [facility] emergency room. Reportedly her troponins are elevated [...] of which are currently being investigated at [facility] (now her fourth GI specialist). * Last year while in [place] she had similar issues with elevated troponins in the ED and underwent heart catheterization that did not reveal any specific significant disease, details of the discharge summary are reviewed * She underwent recent stress perfusion imaging at [facility], the report is reviewed, she hasno evidence [...] investigate the troponin rise at [facility] however I believe this is likely a non- DE troponin elevation, likely associated withunderlying inflammatory bowel disease. We will follow-up on a as needed basis unless further objective data come to light * Patient is a 53-year-old female who returns at the request of her primary care physician with episodic chest discomfort associated weakness, dizziness, diaphoresis with recent work-up that [facility] emergency room. Reportedly her troponins are elevated [...] of which are currently being investigated at [facility] (now her fourth GI specialist). * Last year while in [place] she had similar issues with elevated troponins in the ED and underwent heart catheterization that did not reveal any specific significant disease, details of the discharge summary are reviewed * She underwent recent stress perfusion imaging at [facility], the report is reviewed, she hasno evidence [...] investigate the troponin rise at [facility] however I believe this is likely a non- DE troponin elevation, likely associated withunderlying inflammatory bowel disease. We will follow-up on a as needed basis unless further objective data come to light Additional Source Comments INFORMATION SOURCE (unrecogn ized section and content) DATE CREATED AUTHOR 07/08/2021 [facility] DATE CREATED AUTHOR AUTHOR'S ORGANIZ ATION 11/18/2021 [facility] DATE CREATED AUTHOR AUTHOR'S ORGANIZ ATION 02/01/2022 [facility] DATE CREATED AUTHOR AUTHOR'S ORGANIZ ATION 04/05/2022 [facility] DATE CREATED AUTHOR AUTHOR'S ORGANIZ ATION 09/29/2022 [facility] Special[facility] DATE CREATED AUTHOR AUTHOR'S ORGANIZ ATION 12/09/2022 [facility] DATE CREATED AUTHOR AUTHOR'S ORGANIZ ATION 04/16/2023 [facility] DATE CREATED AUTHOR AUTHOR'S ORGANIZ ATION 06/14/2023 [facility] DATE CREATED AUTHOR AUTHOR'S ORGANIZ ATION 08/14/2023 [facility] DATE CREATED AUTHOR AUTHOR'S ORGANIZ ATION 09/02/2023 [facility] DATE CREATED AUTHOR AUTHOR'S ORGANIZ ATION 10/27/2023 [facility] DATE CREATED AUTHOR AUTHOR'S ORGANIZ ATION 01/11/2024 [facility] DATE CREATED AUTHOR AUTHOR'S ORGANIZ ATION 01/26/2024 [facility] DATE CREATED AUTHOR AUTHOR'S ORGANIZ ATION 03/16/2024 [facility] DATE CREATED AUTHOR AUTHOR'S ORGANIZ ATION 12/14/2024 [facility] DATE CREATED AUTHOR AUTHOR'S ORGANIZ ATION 12/28/2024 [facility] DATE CREATED AUTHOR AUTHOR'S ORGANIZ ATION 12/30/2024 [facility] DATE CREATED AUTHOR AUTHOR'S ORGANIZ ATION 01/22/2025 [facility] DATE CREATED AUTHOR AUTHOR'S ORGANIZ ATION 01/26/2025 [facility] DATE CREATED AUTHOR AUTHOR'S ORGANIZ ATION 03/01/2025 [facility] DATE CREATED AUTHOR AUTHOR'S ORGANIZ ATION 04/02/2025 [facility] Source Comments (unrecognize d section and content) In the event this informatio n is protected by the Federal Confidentiality of Alcohol and Drug Abuse Patient Records regulations: The Federal rules restrict any use of the information to criminally investigate or prosecute any alcohol or drug abuse patient.[facility] CenterIn the event this information is protected by the Federal Confidentiality of Alcohol and Drug Abuse Patient Records regulations: The Federal rules restrict any use of the information to criminally investigate or prosecute any alcohol or drug abuse patient.[facility] CenterIn the event this information is protected by the Federal Confidentiality of Alcohol and Drug Abuse Patient Records regulations: The Federal rules restrict any use of the information to criminally investigate or prosecute any alcohol or drug abuse patient.[facility] CenterIn the event this information is protected by the Federal Confidentiality of Alcohol and Drug Abuse Patient Records regulations: The Federal rules restrict any use of the information to criminally investigate or prosecute any alcohol or drug abuse patient.[facility] CenterIn the event this information is protected by the Federal Confidentiality of Alcohol and Drug Abuse Patient Records regulations: The Federal rules restrict any use of the information to criminally investigate or prosecute any alcohol or drug abuse patient.[facility] CenterIn the event this information is protected by the Federal Confidentiality of Alcohol and Drug Abuse Patient Records regulations: The Federal rules restrict any use of the information to criminally investigate or prosecute any alcohol or drug abuse patient.[facility] CenterIn the event this information is protected by the Federal Confidentiality of Alcohol and Drug Abuse Patient Records regulations: The Federal rules restrict any use of the information to criminally investigate or prosecute any alcohol or drug abuse patient.[facility] CenterIn the event this information is protected by the Federal Confidentiality of Alcohol and Drug Abuse Patient Records regulations: The Federal rules restrict any use of the information to criminally investigate or prosecute any alcohol or drug abuse patient.[facility] CenterIn the event this information is protected by the Federal Confidentiality of Alcohol and Drug Abuse Patient Records regulations: The Federal rules restrict any use of the information to criminally investigate or prosecute any alcohol or drug abuse patient.[facility] CenterIn the event this information is protected by the Federal Confidentiality of Alcohol and Drug Abuse Patient Records regulations: The Federal rules restrict any use of the information to criminally investigate or prosecute any alcohol or drug abuse patient.[facility] CenterIn the event this information is protected by the Federal Confidentiality of Alcohol and Drug Abuse Patient Records regulations: The Federal rules restrict any use of the information to criminally investigate or prosecute any alcohol or drug abuse patient.[facility] CenterIn the event this information is protected by the Federal Confidentiality of Alcohol and Drug Abuse Patient Records regulations: The Federal rules restrict any use of the information to criminally investigate or prosecute any alcohol or drug abuse patient.[facility] CenterIn the event this information is protected by the Federal Confidentiality of Alcohol and Drug Abuse Patient Records regulations: The Federal rules restrict any use of the information to criminally investigate or prosecute any alcohol or drug abuse patient.[facility] CenterIn the event this information is protected by the Federal Confidentiality of Alcohol and Drug Abuse Patient Records regulations: The Federal rules restrict any use of the information to criminally investigate or prosecute any alcohol or drug abuse patient.[facility] CenterIn the event this information is protected by the Federal Confidentiality of Alcohol and Drug Abuse Patient Records regulations: The Federal rules restrict any use of the information to criminally investigate or prosecute any alcohol or drug abuse patient.[facility] CenterIn the event this information is protected by the Federal Confidentiality of Alcohol and Drug Abuse Patient Records regulations: The Federal rules restrict any use of the information to criminally investigate or prosecute any alcohol or drug abuse patient.[facility] CenterIn the event this information is protected by the Federal Confidentiality of Alcohol and Drug Abuse Patient Records regulations: The Federal rules restrict any use of the information to criminally investigate or prosecute any alcohol or drug abuse patient.[facility] CenterIn the event this information is protected by the Federal Confidentiality of Alcohol and Drug Abuse Patient Records regulations: The Federal rules restrict any use of the information to criminally investigate or prosecute any alcohol or drug abuse patient.[facility] the event this information is protected by the Federal Confidentiality of Alcohol and Drug Abuse Patient Records regulations: The Federal rules restrict any use of the information to criminally investigate or prosecute any alcohol or drug abuse patient.[facility] CenterIn the event this information is protected by the Federal Confidentiality of Alcohol and Drug Abuse Patient Records regulations: The Federal rules restrict any use of the information to criminally investigate or prosecute any alcohol or drug abuse patient.[facility] CenterIn the event this information is protected by the Federal Confidentiality of Alcohol and Drug Abuse Patient Records regulations: The Federal rules restrict any use of the information to criminally investigate or prosecute any alcohol or drug abuse patient.[facility]In the event this information is protected by the Federal Confidentiality of Alcohol and Drug Abuse Patient Records regulations: The Federal rules restrict any use of the information to criminally investigate or prosecute any alcohol or drug abuse patient.[facility] CenterIn the event this information is protected by the Federal Confidentiality of Alcohol and Drug Abuse Patient Records regulations: The Federal rules restrict any use of the information to criminally investigate or prosecute any alcohol or drug abuse patient.[facility] CenterIn the event this information is protected by the Federal Confidentiality of Alcohol and Drug Abuse Patient Records regulations: The Federal rules restrict any use of the information to criminally investigate or prosecute any alcohol or drug abuse patient.[facility] CenterIn the event this information is protected by the Federal Confidentiality of Alcohol and Drug Abuse Patient Records regulations: The Federal rules restrict any use of the information to criminally investigate or prosecute any alcohol or drug abuse patient.[facility] CenterIn the event this information is protected by the Federal Confidentiality of Alcohol and Drug Abuse Patient Records regulations: The Federal rules restrict any use of the information to criminally investigate or prosecute any alcohol or drug abuse patient.[facility] CenterIn the event this information is protected by the Federal Confidentiality of Alcohol and Drug Abuse Patient Records regulations: The Federal rules restrict any use of the information to criminally investigate or prosecute any alcohol or drug abuse patient.[facility] CenterIn the event this information is protected by the Federal Confidentiality of Alcohol and Drug Abuse Patient Records regulations: The Federal rules restrict any use of the information to criminally investigate or prosecute any alcohol or drug abuse patient.[facility] CenterIn the event this information is protected by the Federal Confidentiality of Alcohol and Drug Abuse Patient Records regulations: The Federal rules restrict any use of the information to criminally investigate or prosecute any alcohol or drug abuse patient.[facility] CenterIn the event this information is protected by the Federal Confidentiality of Alcohol and Drug Abuse Patient Records regulations: The Federal rules restrict any use of the information to criminally investigate or prosecute any alcohol or drug abuse patient.[facility] CenterIn the event this information is protected by the Federal Confidentiality of Alcohol and Drug Abuse Patient Records regulations: The Federal rules restrict any use of the information to criminally investigate or prosecute any alcohol or drug abuse patient.[facility] CenterIn the event this information is protected by the Federal Confidentiality of Alcohol and Drug Abuse Patient Records regulations: The Federal rules restrict any use of the information to criminally investigate or prosecute any alcohol or drug abuse patient.[facility] CenterIn the event this information is protected by the Federal Confidentiality of Alcohol and Drug Abuse Patient Records regulations: The Federal rules restrict any use of the information to criminally investigate or prosecute any alcohol or drug abuse patient.[facility] CenterIn the event this information is protected by the Federal Confidentiality of Alcohol and Drug Abuse Patient Records regulations: The Federal rules restrict any use of the information to criminally investigate or prosecute any alcohol or drug abuse patient.[facility] CenterIn the event this information is protected by the Federal Confidentiality of Alcohol and Drug Abuse Patient Records regulations: The Federal rules restrict any use of the information to criminally investigate or prosecute any alcohol or drug abuse patient.[facility] CenterIn the event this information is protected by the Federal Confidentiality of Alcohol and Drug Abuse Patient Records regulations: The Federal rules restrict any use of the information to criminally investigate or prosecute any alcohol or drug abuse patient.[facility] CenterIn the event this information is protected by the Federal Confidentiality of Alcohol and Drug Abuse Patient Records regulations: The Federal rules restrict any use of the information to criminally investigate or prosecute any alcohol or drug abuse patient.[facility] CenterIn the event this information is protected by the Federal Confidentiality of Alcohol and Drug Abuse Patient Records regulations: The Federal rules restrict any use of the information to criminally investigate or prosecute any alcohol or drug abuse patient.[facility] CenterIn the event this information is protected by the Federal Confidentiality of Alcohol and Drug Abuse Patient Records regulations: The Federal rules restrict any use of the information to criminally investigate or prosecute any alcohol or drug abuse patient.[facility] CenterIn the event this information is protected by the Federal Confidentiality of Alcohol and Drug Abuse Patient Records regulations: The Federal rules restrict any use of the information to criminally investigate or prosecute any alcohol or drug abuse patient.[facility] CenterIn the event this information is protected by the Federal Confidentiality of Alcohol and Drug Abuse Patient Records regulations: The Federal rules restrict any use of the information to criminally investigate or prosecute any alcohol or drug abuse patient.[facility] CenterIn the event this information is protected by the Federal Confidentiality of Alcohol and Drug Abuse Patient Records regulations: The Federal rules restrict any use of the information to criminally investigate or prosecute any alcohol or drug abuse patient.[facility] CenterIn the event this information is protected by the Federal Confidentiality of Alcohol and Drug Abuse Patient Records regulations: The Federal rules restrict any use of the information to criminally investigate or prosecute any alcohol or drug abuse patient.[facility] CenterIn the event this information is protected by the Federal Confidentiality of Alcohol and Drug Abuse Patient Records regulations: The Federal rules restrict any use of the information to criminally investigate or prosecute any alcohol or drug abuse patient.[facility] CenterIn the event this information is protected by the Federal Confidentiality of Alcohol and Drug Abuse Patient Records regulations: The Federal rules restrict any use of the information to criminally investigate or prosecute any alcohol or drug abuse patient.[facility] CenterIn the event this information is protected by the Federal Confidentiality of Alcohol and Drug Abuse Patient Records regulations: The Federal rules restrict any use of the information to criminally investigate or prosecute any alcohol or drug abuse patient.[facility] CenterIn the event this information is protected by the Federal Confidentiality of Alcohol and Drug Abuse Patient Records regulations: The Federal rules restrict any use of the information to criminally investigate or prosecute any alcohol or drug abuse patient.[facility] CenterIn the event this information is protected by the Federal Confidentiality of Alcohol and Drug Abuse Patient Records regulations: The Federal rules restrict any use of the information to criminally investigate or prosecute any alcohol or drug abuse patient.[facility] CenterIn the event this information is protected by the Federal Confidentiality of Alcohol and Drug Abuse Patient Records regulations: The Federal rules restrict any use of the information to criminally investigate or prosecute any alcohol or drug abuse patient.[facility] CenterIn the event this information is protected by the Federal Confidentiality of Alcohol and Drug Abuse Patient Records regulations: The Federal rules restrict any use of the information to criminally investigate or prosecute any alcohol or drug abuse patient.[facility] CenterIn the event this information is protected by the Federal Confidentiality of Alcohol and Drug Abuse Patient Records regulations: The Federal rules restrict any use of the information to criminally investigate or prosecute any alcohol or drug abuse patient.[facility] CenterIn the event this information is protected by the Federal Confidentiality of Alcohol and Drug Abuse Patient Records regulations: The Federal rules restrict any use of the information to criminally investigate or prosecute any alcohol or drug abuse patient.[facility] CenterIn the event this information is protected by the Federal Confidentiality of Alcohol and Drug Abuse Patient Records regulations: The Federal rules restrict any use of the information to criminally investigate or prosecute any alcohol or drug abuse patient.[facility] CenterIn the event this information is protected by the Federal Confidentiality of Alcohol and Drug Abuse Patient Records regulations: The Federal rules restrict any use of the information to criminally investigate or prosecute any alcohol or drug abuse patient.[facility] CenterIn the event this information is protected by the Federal Confidentiality of Alcohol and Drug Abuse Patient Records regulations: The Federal rules restrict any use of the information to criminally investigate or prosecute any alcohol or drug abuse patient.[facility] CenterIn the event this information is protected by the Federal Confidentiality of Alcohol and Drug Abuse Patient Records regulations: The Federal rules restrict any use of the information to criminally investigate or prosecute any alcohol or drug abuse patient.[facility] CenterIn the event this information is protected by the Federal Confidentiality of Alcohol and Drug Abuse Patient Records regulations: The Federal rules restrict any use of the information to criminally investigate or prosecute any alcohol or drug abuse patient.[facility] CenterIn the event this information is protected by the Federal Confidentiality of Alcohol and Drug Abuse Patient Records regulations: The Federal rules restrict any use of the information to criminally investigate or prosecute any alcohol or drug abuse patient.[facility] CenterIn the event this information is protected by the Federal Confidentiality of Alcohol and Drug Abuse Patient Records regulations: The Federal rules restrict any use of the information to criminally investigate or prosecute any alcohol or drug abuse patient.[facility] CenterIn the event this information is protected by the Federal Confidentiality of Alcohol and Drug Abuse Patient Records regulations: The Federal rules restrict any use of the information to criminally investigate or prosecute any alcohol or drug abuse patient.[facility] CenterIn the event this information is protected by the Federal Confidentiality of Alcohol and Drug Abuse Patient Records regulations: The Federal rules restrict any use of the information to criminally investigate or prosecute any alcohol or drug abuse patient.[facility] CenterIn the event this information is protected by the Federal Confidentiality of Alcohol and Drug Abuse Patient Records regulations: The Federal rules restrict any use of the information to criminally investigate or prosecute any alcohol or drug abuse patient.[facility] CenterIn the event this information is protected by the Federal Confidentiality of Alcohol and Drug Abuse Patient Records regulations: The Federal rules restrict any use of the information to criminally investigate or prosecute any alcohol or drug abuse patient.[facility] CenterIn the event this information is protected by the Federal Confidentiality of Alcohol and Drug Abuse Patient Records regulations: The Federal rules restrict any use of the information to criminally investigate or prosecute any alcohol or drug abuse patient.[facility] CenterIn the event this information is protected by the Federal Confidentiality of Alcohol and Drug Abuse Patient Records regulations: The Federal rules restrict any use of the information to criminally investigate or prosecute any alcohol or drug abuse patient.[facility] CenterIn the event this information is protected by the Federal Confidentiality of Alcohol and Drug Abuse Patient Records regulations: The Federal rules restrict any use of the information to criminally investigate or prosecute any alcohol or drug abuse patient.[facility] CenterIn the event this information is protected by the Federal Confidentiality of Alcohol and Drug Abuse Patient Records regulations: The Federal rules restrict any use of the information to criminally investigate or prosecute any alcohol or drug abuse patient.[facility] CenterIn the event this information is protected by the Federal Confidentiality of Alcohol and Drug Abuse Patient Records regulations: The Federal rules restrict any use of the information to criminally investigate or prosecute any alcohol or drug abuse patient.[facility] the event this information is protected by the Federal Confidentiality of Alcohol and Drug Abuse Patient Records regulations: The Federal rules restrict any use of the information to criminally investigate or prosecute any alcohol or drug abuse patient.[facility] CenterIn the event this information is protected by the Federal Confidentiality of Alcohol and Drug Abuse Patient Records regulations: The Federal rules restrict any use of the information to criminally investigate or prosecute any alcohol or drug abuse patient.[facility] CenterIn the event this information is protected by the Federal Confidentiality of Alcohol and Drug Abuse Patient Records regulations: The Federal rules restrict any use of the information to criminally investigate or prosecute any alcohol or drug abuse patient.[facility]In the event this information is protected by the Federal Confidentiality of Alcohol and Drug Abuse Patient Records regulations: The Federal rules restrict any use of the information to criminally investigate or prosecute any alcohol or drug abuse patient.[facility] CenterIn the event this information is protected by the Federal Confidentiality of Alcohol and Drug Abuse Patient Records regulations: The Federal rules restrict any use of the information to criminally investigate or prosecute any alcohol or drug abuse patient.[facility] CenterIn the event this information is protected by the Federal Confidentiality of Alcohol and Drug Abuse Patient Records regulations: The Federal rules restrict any use of the information to criminally investigate or prosecute any alcohol or drug abuse patient.[facility] CenterIn the event this information is protected by the Federal Confidentiality of Alcohol and Drug Abuse Patient Records regulations: The Federal rules restrict any use of the information to criminally investigate or prosecute any alcohol or drug abuse patient.[facility] CenterIn the event this information is protected by the Federal Confidentiality of Alcohol and Drug Abuse Patient Records regulations: The Federal rules restrict any use of the information to criminally investigate or prosecute any alcohol or drug abuse patient.[facility] CenterIn the event this information is protected by the Federal Confidentiality of Alcohol and Drug Abuse Patient Records regulations: The Federal rules restrict any use of the information to criminally investigate or prosecute any alcohol or drug abuse patient.[facility] CenterIn the event this information is protected by the Federal Confidentiality of Alcohol and Drug Abuse Patient Records regulations: The Federal rules restrict any use of the information to criminally investigate or prosecute any alcohol or drug abuse patient.[facility] CenterIn the event this information is protected by the Federal Confidentiality of Alcohol and Drug Abuse Patient Records regulations: The Federal rules restrict any use of the information to criminally investigate or prosecute any alcohol or drug abuse patient.[facility] CenterIn the event this information is protected by the Federal Confidentiality of Alcohol and Drug Abuse Patient Records regulations: The Federal rules restrict any use of the information to criminally investigate or prosecute any alcohol or drug abuse patient.[facility] CenterIn the event this information is protected by the Federal Confidentiality of Alcohol and Drug Abuse Patient Records regulations: The Federal rules restrict any use of the information to criminally investigate or prosecute any alcohol or drug abuse patient.[facility] CenterIn the event this information is protected by the Federal Confidentiality of Alcohol and Drug Abuse Patient Records regulations: The Federal rules restrict any use of the information to criminally investigate or prosecute any alcohol or drug abuse patient.[facility] CenterIn the event this information is protected by the Federal Confidentiality of Alcohol and Drug Abuse Patient Records regulations: The Federal rules restrict any use of the information to criminally investigate or prosecute any alcohol or drug abuse patient.[facility] CenterIn the event this information is protected by the Federal Confidentiality of Alcohol and Drug Abuse Patient Records regulations: The Federal rules restrict any use of the information to criminally investigate or prosecute any alcohol or drug abuse patient.[facility] CenterIn the event this information is protected by the Federal Confidentiality of Alcohol and Drug Abuse Patient Records regulations: The Federal rules restrict any use of the information to criminally investigate or prosecute any alcohol or drug abuse patient.[facility] CenterIn the event this information is protected by the Federal Confidentiality of Alcohol and Drug Abuse Patient Records regulations: The Federal rules restrict any use of the information to criminally investigate or prosecute any alcohol or drug abuse patient.[facility] CenterIn the event this information is protected by the Federal Confidentiality of Alcohol and Drug Abuse Patient Records regulations: The Federal rules restrict any use of the information to criminally investigate or prosecute any alcohol or drug abuse patient.[facility] CenterIn the event this information is protected by the Federal Confidentiality of Alcohol and Drug Abuse Patient Records regulations: The Federal rules restrict any use of the information to criminally investigate or prosecute any alcohol or drug abuse patient.[facility] Reason for Visit (unrecogniz ed section and content) Reason Comments Physical Therapy Specialty Diagnoses / Procedures Referred By Gustavo salazar Referred To Contact [facility] Diagnoses Follow-up examination after colorectal surgery Procedures CONSULT TO PHYSICAL THERAPY PHYSICAL THERAPY EVALUATION HIGH COMPLEX [address] [place] [address] [place] [address] [facility] [place] [address] [place] [address] Referral ID Status Reason Start Date Expiration Date Visits Requested Visits Authorized [id number] Authorized Auto-Generat ed Referral 01/04/2022 11/05/2022 30 30 Reason Comments Refill Request dexlansoprazole Reason Comments Established Patient Follow-Up Reason Comments Post Op Reason Comments Established Patient Reason Comments Appointment for script refill Reason Comments Gastroparesis Reason Comments Manager Leadership Development - Other Reason Comments Medication 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 PA [...] ESOPHAGUS DOUBLE CONTRAST [place] [address] Xr Imaging Referral ID Status Reason Start Date Expiration Date V isits Requested Visits Authorized [id number] Closed Auto-Generate d Referral 11/17/2022 12/17/2023 1 [...] ABD & [place] W/[place] [address] [place] [address] [address] Imaging Referral ID Status Reason Start Date Expiration Date V isits Requested Visits Authorized [id number] Closed Auto-Generate d Referral 07/28/2022 11/05/2022 2 [...] By Contac t Referred To Contact Diagnoses Blackford grade D esophagitis Early satiety Unintentional weight loss Gastroparesis Procedures DIAGNOSTIC UPPER ENDOSCOPY [place] ESOPHAGOGASTRODUODENOSCOPY TRANSORAL DIAGNOSTIC Padmaja Llamas MD, PhD [address] [place] [address] Referral ID Status Reason Start Date Expiration Date V isits Requested Visits Authorized [id number] New Request 03/06/2024 03/31/2025 1 1 Specialty Diagnoses / Procedures Referred By Gustavo t Referred To Contact Orthopedics / ORTHOPAEDIC SURGERY Diagnoses shoulder pain right pt will hand carry MRI Procedures POLI ACUTE Self Ryan Lynne MD [address] [place] [address] Referral ID Status Reason Start Date Expiration Date V isits Requested Visits Authorized [id number] Closed Financial Clearance Not Required 09/06/2020 10/05/2020 [...] Exam C/o bleeding after i ntercourse. LMP: [facility] BS 2014. Reason Comments Follow-up [place] silver [...] Visit 10/24/24 vaginal cuf f and hymen [id number] daysDenies PO concerns. Bleeding stopped after 7 [...] 2024 End: October 14, 2024 Anibal Medrano , DO Attending Provider [...] Padmaja Llamas MD Attending Provider Active Start: [facility] 2024 End: November 14, 2024 Team Status: Inactive Member Role Status Dates Shannon Parish Stephonleigha , Primary Care Provider Active Niecy Duron PA-C Attending Provider Active 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 Start Date End Date Eliceo Gómez Jr. [address] [place] [address] PCP - General Family Practice 10/14/20 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 Start Date End Date Eliceo Gómez Jr. [address] [place] [address] PCP - General Family Practice 10/14/20 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 Start Date End Date Eliceo Gómez Jr. [address] [place] [address] PCP - General Family Practice 10/14/20 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 Start Date End Date Eliceo Gómez Jr. [address] [place] [address] PCP - General Family Practice 10/14/20 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 Start Date End Date Eliceo Gómez Jr. [address] [place] [address] PCP - General Family Practice 10/14/20 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 Start Date End Date Eliceo Gómez Jr. [address] [place] [address] PCP - General Family Practice 10/14/20 Gwendolyn Stroud [facility] [place] [address] Family Practice 03/14/22 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 Start Date End Date Eliceo Gómez Jr. [address] [place] [address] PCP - General Family Practice 10/14/20 Gwendolyn Stroud [address] [place] [address] Family Practice 03/14/22 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 Start Date End Date Eliceo Gómez Jr. [address] [place] [address] PCP - General Family Practice 10/14/20 Gwendolyn Stroud [address] [place] [address] Family Practice 03/14/22 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 Start Date End Date Eliceo Gómez Jr. [address] [place] [address] PCP - General Family Practice 10/14/20 Gwendolyn Stroud [address] [place] [address] Family Practice 03/14/22 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 Start Date End Date Eliceo Gómez Jr. [address] [place] [address] PCP - General Family Practice 10/14/20 Gwendolyn Stroud [address] [place] [address] Family Practice 03/14/22 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 Start Date End Date Eliceo Gómez Jr. [address] [place] [address] PCP - General Family Practice 10/14/20 Gwendolyn Stroud [address] [place] [address] Family Practice 03/14/22 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 Start Date End Date Eliceo Gómez Jr. [address] [place] [address] PCP - General Family Practice 10/14/20 Gwendolyn Storud, DOOR INSTALLER Family Practice 03/14/22 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 Start Date End Date Eliceo Gómez Jr. [address] [place] [address] PCP - General Family Practice 10/14/20 Gwendolyn Stroud, DOOR INSTALLER Family Practice 03/14/22 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 Start Date End Date Eliceo Gómez Jr. [address] [place] [address] PCP - General Family Practice 10/14/20 Gwendolyn Stroud, DOOR INSTALLER Family Practice 03/14/22 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 Start Date End Date Dalia Eliceo Lugo Jr. [address] [place] [address] PCP - General Family Practice 10/14/20 Gwendolyn Stroud, DOOR INSTALLER Family Practice 03/14/22 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 Start Date End Date Dalia Eliceo Lugo Jr. [address] [place] [address] PCP - General Family Medicine 10/14/20 Gwendolyn Stroud, DOOR INSTALLER Family Medicine 03/14/22 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 Start Date End Date Dalia Eliceo Lugo Jr. [address] [place] [address] PCP - General Family Medicine 10/14/20 Gwendolyn Stroud CNP Family Medicine 03/14/22 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 Start Date End Date Eliceo Gómez Jr. [address] [place] [address] PCP - General Family Medicine 10/14/20 Gwendolyn Stroud CNP Family Medicine 03/14/22 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 Start Date End Date Eliceo Gómez Jr. [address] [place] [address] PCP - General Family Medicine 10/14/20 Gwendolyn Stroud CNP Family Medicine 03/14/22 Team Status: Inactive Member Role Status Dates Shannon Gómez , Primary Care Provider Active Beto Snyder MD Attending Provider Active 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 Start Date End Date Eliceo Gómez Jr. [address] [place] [address] PCP - General Family Medicine 10/14/20 Gwendolyn Stroud, DOOR INSTALLER [address] [place] [address] Family Medicine 03/14/22 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 Start Date End Date Eliceo Gómez Jr. [address] [place] [address] PCP - General Family Medicine 10/14/20 Gwendolyn Stroud, DOOR INSTALLER [address] [place] [address] Family Medicine 03/14/22 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 Start Date End Date Eliceo Gómez Jr. [address] [place] [address] PCP - General Family Medicine 10/14/20 Gwendolyn Stroud CNP [address] [place] [address] Family Medicine 03/14/22 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 Start Date End Date Eliceo Gómez Jr. [address] [place] [address] PCP - General Family Medicine 10/14/20 Gwendolyn Stroud CNP [address] [place] [address] Family Medicine 03/14/22 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 Start Date End Date Eliceo Gómez Jr. [address] [place] [address] PCP - General Family Medicine 10/14/20 Gwendolyn Stroud CNP [address] [place] [address] Family Medicine 03/14/22 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 Start Date End Date Eliceo Gómez Jr. [address] [place] [address] PCP - General Family Medicine 10/14/20 Gwendolyn Stroud CNP [address] [place] [address] Family Medicine 03/14/22 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 Start Date End Date Eliceo Gómez Jr. [address] [place] [address] PCP - General Family Medicine 10/14/20 Gwendolyn Stroud CNP [address] [place] [address] Family Medicine 03/14/22 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 Start Date End Date Eliceo Gómez Jr. [address] [place] [address] PCP - General Family Medicine 10/14/20 Gwendolyn Stroud CNP [address] [place] [address] Family Medicine 03/14/22 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 Start Date End Date Eliceo Gómez Jr. [address] [place] [address] PCP - General Family Medicine 10/14/20 Gwendolyn Stroud CNP [address] [place] [address] Family Medicine 03/14/22 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 Start Date End Date Eliceo Gómez Jr. [address] [place] [address] PCP - General Family Medicine 10/14/20 Gwendolyn Stroud CNP [address] [place] [address] Family Medicine 03/14/22 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 Start Date End Date Eliceo Gómez Jr. [address] [place] [address] PCP - General Family Medicine 10/14/20 Gwendolyn Stroud CNP [address] [place] [address] Family Medicine 03/14/22 Team Status: Inactive Member Role Status Dates Shannon Gómez DO Primary Care Provider Active Beto Cartagena MD Attending Provider Active 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 Start Date End Date Eliceo Gómez Jr. [address] [place] [address] PCP - General Family Medicine 10/14/20 Gwendolyn Stroud CNP [address] [place] [address] Family Medicine 03/14/22 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 Start Date End Date Eliceo Gómez Jr. [address] [place] [address] PCP - General Family Medicine 10/14/20 Gwendolyn Stroud CNP [address] [place] [address] Family Medicine 03/14/22 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 Start Date End Date Eliceo Gómez Jr. [address] [place] [address] PCP - General Family Medicine 10/14/20 Gwendolyn Stroud CNP [address] [place] [address] Family Medicine 03/14/22 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 Start Date End Date Eliceo Gómez Jr. [address] [place] [address] PCP - General Family Medicine 10/14/20 Gwendolyn Stroud, KWESI [address] [place] [address] Family Medicine 03/14/22 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 Start Date End Date Eliceo Gómez Jr. [address] [place] [address] PCP - General Family Medicine 10/14/20 Gwendolyn Stroud CNP [address] [place] [address] Family Medicine 03/14/22 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 Start Date End Date Eliceo Gómez Jr. [address] [address] [place] [address] PCP - General Family Medicine 10/14/20 Gwendolyn Stroud CNP [address] [place] [address] Family Medicine 03/14/22 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 Start Date End Date Eliceo Gómez Jr. [address] [place] [address] PCP - General Family Medicine 10/14/20 Gwendolyn Stroud CNP [address] [place] [address] Family Medicine 03/14/22 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 Start Date End Date Eliceo Gómez Jr. [address] [place] [address] PCP - General Family Medicine 10/14/20 Gwendolyn Stroud CNP [address] [place] [address] Family Medicine 03/14/22 Team Status: Inactive Member Role Status Henrietta Gómez , DO Primary Care Provider Active Anibal Valle , DO Emergency Provider Active 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 Start Date End Date KaftanEliceo Jr. [address] [place] [address] PCP - General Family Medicine 10/14/20 Gwendolyn Stroud CNP [address] [place] [address] Family Medicine 03/14/22 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 Start Date End Date DaliaEliceo Jr. [address] [place] [address] PCP - General Family Medicine 10/14/20 Gwendolyn Stroud CNP [address] [place] [address] Family Medicine 03/14/22 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 Start Date End Date Dalia Eliceo Parish Jenkins. [address] [place] [address] PCP - General Family Medicine 10/14/20 Gwendolyn Stroud CNP [address] [place] [address] Family Medicine 03/14/22 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 Start Date End Date Eliceo Gómez Jr., DO [address] [place] [address] PCP - General Family Medicine 10/14/20 Gwendolyn Stroud CNP [address] [place] [address] Family Medicine 03/14/22 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 Start Date End Date Eliceo Gómez Jr., DO [address] [place] [address] PCP - General Family Medicine 10/14/20 Gwendolyn Stroud, KWESI [address] [place] [address] [facility] 03/14/22 Team Status: Inactive Member Role Status Henrietta Gómez DO Primary Care Provider Active Start: November 23, 2023 End: November 23, 2023 Tez Vazquez DO Attending Provider Active Start : November 23, 2023 End: November 23, 2023 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 Start Date End Date Eliceo Gómez Jr., DO [address] [place] [address] PCP - General Family Medicine 10/14/20 Gwendolyn Stroud, DOOR INSTALLER [address] [place] [address] Family [facility] 03/14/22 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 Start Date End Date Eliceo Gómez Jr., DO [address] [place] [address] PCP - General Family Medicine 10/14/20 Gwendolyn Stroud, DOOR INSTALLER [address] [place] [address] [facility] 03/14/22 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 Start Date End Date Eliceo Gómez Jr., DO [address] [place] [address] PCP - General Family Medicine 10/14/20 Gwendolyn Srtoud CNP [address] [place] [address] Family Medicine 03/14/22 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 Start Date End Date Eliceo Gómez Jr., DO [address] [place] [address] PCP - General Family Medicine 10/14/20 Gwendolyn Stroud CNP [address] [place] [address] Family Medicine 03/14/22 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 Start Date End Date Eliceo Gómez Jr., DO [address] [place] [address] PCP - General Family Medicine 10/14/20 Gwendolyn Stroud CNP [address] [place] [address] Family Medicine 03/14/22 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 Start Date End Date Eliceo Gómez Jr., DO [address] [place] [address] PCP - General Family Medicine 10/14/20 Gwendolyn Stroud CNP [address] [place] [address] Family Medicine 03/14/22 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 Start Date End Date Eliceo Gómez Jr., DO [address] [place] [address] PCP - General Family Medicine 10/14/20 Gwendolyn Stroud, KWESI [address] [place] [address] Family Medicine 03/14/22 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 Start Date End Date Shannon Gómez, [address] [place] [address] PCP - General Family Medicine 11/14/23 Team [...] May 27, 2024 End: May 27, 2024 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 Start Date End Date Eliceo Gómez Jr., [address] [place] [address] PCP - General Family Medicine 10/14/20 Gwendolyn Stroud, KWESI [address] [place] [address] Family Medicine 03/14/22 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 Start Date End Date Eliceo Gómez Jr., [address] [place] [address] PCP - General Family Medicine 10/14/20 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 Start Date End Date Shannon Gómez, [address] [place], [place] [address] PCP - General Family Medicine 11/14/23 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 Start Date End Date Eliceo Gómez DO [address] [place] [address] PCP - General Family Medicine 04/04/23 Eliceo Gómez DO [address] [place] [address] PCP - [facility] 05/06/23 Dipti Acevedo, [address] [place] [address] Referring Physician Obstetrics and Gynecology 05/20/24 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 Start Date End Date Eliceo Gómez DO [address] [place] [address] PCP - General Family Medicine 04/04/23 Eliceo Gómez DO [address] [place] [address] PCP - [facility] 05/06/23 Dipti Acevedo, DO [address] [place] [address] Referring Physician Obstetrics and Gynecology 05/20/24 Team Status: Inactive Member Role Status Dates Shannon Gómez DO Primary Care Provider Active Start: September 16, 2024 End: September 16, 2024 Anibal Medrano DO Attending Provider Active S tart: September 16, 2024 End: September 16, 2024 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 Start Date End Date Eliceo Gómez DO [address] [place] [address] PCP - General Family [facility] 04/04/23 Eliceo Gómez, DO [address] [place] [address] PCP - [facility] 05/06/23 Dipti Acevedo, DO [address] [place] [address] Referring Physician Obstetrics and Gynecology 05/20/24 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 Start Date End Date Eliceo Gómez, DO [address] [place] [address] PCP - General [facility] Medicine 04/04/23 Eliceo Gómez, DO [address] [place] [address] PCP - [facility] 05/06/23 Dipti Acevedo, DO [address] [place] [address] Referring Physician Obstetrics and Gynecology 05/20/24 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 Start Date End Date Eliceo Gómez, [address] [place] [address] PCP - General Family Medicine 04/04/23 Eliceo Gómez, DO [address] [place] [address] PCP - [facility] 05/06/23 Dipti Acevedo, DO [address] [place] [address] Referring Physician Obstetrics and Gynecology 05/20/24 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 Start Date End Date Eliceo Gómez DO [address] [place] [address] PCP - General Family Medicine 04/04/23 Eliceo Gómez, DO [address] [place] [address] PCP - [facility] 05/06/23 Dipti Acevedo, DO [address] [place] [address] Referring Physician Obstetrics and Gynecology 05/20/24 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 Start Date End Date Eliceo Gómez DO [address] [place] [address] PCP - General Family Medicine 04/04/23 Eliceo Gómez, DO [address] [place] [address] PCP - [facility] 05/06/23 Dipti Acevedo, DO [address] [place] [address] Referring Physician Obstetrics and Gynecology 05/20/24 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 Start Date End Date Eliceo Gómez, DO [address] [place] [address] PCP - General Family Medicine 04/04/23 Eliceo Gómez, DO [address] [place] [address] PCP - [facility] 05/06/23 Dipti Acevedo, DO [address] [place] [address] Referring Physician Obstetrics and Gynecology 05/20/24 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 Start Date End Date Eliceo Gómez DO [address] [place] [address] PCP - General Family Medicine 04/04/23 Eliceo Gómez DO [address] [place] [address] PCP - [facility] 05/06/23 Dipti Acevedo, DO [address] [place] [address] Referring Physician Obstetrics and Gynecology 05/20/24 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 Start Date End Date Shannon Gómez, [address] [place] [address] PCP - General Family [facility] 11/14/23 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 Start Date End Date Eliceo Gómez DO [address] [place] [address] PCP - General Family Medicine 04/04/23 Eliceo Gómez, [address] [place] [address] PCP - [facility] 05/06/23 Dipti Acevedo, DO [address] [place] [address] Referring Physician Obstetrics and Gynecology 05/20/24 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 Start Date End Date Eliceo Gómez DO [address] [place] [address] PCP - General Family Medicine 04/04/23 Eliceo Gómez, DO [address] [place] [address] PCP - [facility] 05/06/23 Dipti Acevedo, DO [address] [place] [address] Referring Physician Obstetrics and Gynecology 05/20/24 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 Start Date End Date Eliceo Gómez, DO [address] [place] [address] PCP - General Family Medicine 04/04/23 Eliceo Gómez, DO [address] [place] [address] PCP - [facility] 05/06/23 Dipti Acevedo, DO [address] [place] [address] Referring Physician Obstetrics and Gynecology 05/20/24 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 Start Date End Date Eliceo Gómez Jr., DO [address], [address] [place] [address] PCP - General Family Medicine 12/11/19 Jenna Chapay [address] Consulting Physician Behavioral Health 12/20/23 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 Start Date End Date Eliceo Gómez Jr., DO [address], [address] [place] [address] PCP - General Family Medicine 12/11/19 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 Start Date End Date Eliceo Gómez Jr., DO [address], [address] [place] [address] PCP - General Family Medicine 12/11/19 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 Start Date End Date Eliceo Gómez Jr., DO [address], [address] [place] [address] PCP - General Family Medicine 12/11/19 [facility] [address] [facility] [address] [place] [phone] (Work) Consulting Physician Behavioral Health 12/20/23 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 Start Date End Date Eliceo Gómez Jr., DO [address] [place] [address] PCP - General Family Medicine 12/11/19 [facility] [address] [facility] [address] [place] [phone] (Work) Consulting Physician Behavioral Health 12/20/23 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 Start Date End Date Eliceo Gómez Jr., DO [address], [address] [place] [address] PCP - General Family Medicine 12/11/19 [facility] [address] [facility] [address] [place] [phone] (Work) Consulting Physician Behavioral Health 12/20/23 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 Start Date End Date Eliceo Gómez Jr., DO [address] [place] [address] PCP - General Family Medicine 12/11/19 [facility] [address] [facility] [address] [place] [phone] (Work) Consulting Physician Behavioral Health 12/20/23 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 Start Date End Date Eliceo Gómez DO [address] [place] [address] PCP - General Family Medicine 04/04/23 Eliceo Gómez DO [address] [facility] [address] [place] [address] PCP - [facility] 05/06/2310/05 Dipti Acevedo, [address] [facility] [address] [place] [address] Referring Physician Obstetrics and Gynecology 05/20/24 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 Start Date End Date Eliceo Gómez DO [address] [facility] [address] [place] [address] PCP - General Family Medicine 04/04/23 Eliceo Gómez DO [address] [facility] [address] [place] [address] [facility] 05/06/2310/05 Dipti Acevedo, [address] [facility] [address] [place] [address] Referring Physician Obstetrics and Gynecology 05/20/24 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 Start Date End Date Eliceo Góemz Jr., DO [address] [facility] [place] [address] PCP - General Family Medicine 12/11/[address] Consulting Physician Behavioral Health 12/20/23 Team Status: Inactive Member Role Status Dates Shannon Gómez DO Primary Care Provider Active Start: February 25, 2025 End: February 25, 2025 GERSON SchaferC Attending Provider Active St art: February 25, 2025 End: February 25, 2025 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, [address] [place] [address] PCP - General Family Medicine 12/11/[address] Consulting Physician Behavioral Health 12/20/23 Team Status: Inactive Member Role Status Dates Shannon Gómez DO Primary Care Provider Active Start: April 30, 2025 End: April 30, 2025 Salma Galeas DO Attending Provider Active Start: April 30, 2025 End: April 30, 2025 Goals (unrecognized section and content) Goals may [...] BE BASED ON THE PRIMARY CLINICAL RECORDS. [employer] [facility]. provides no warranty or guarantee of the accuracy or completeness of information in this document.
[2025-05-05 07:28] VITALS: BP 100/72; PULSE 80; TEMP 37.1; O2SAT 98
[2025-05-05 07:43] VITALS: BP 106/70; PULSE 74; O2SAT 96
[2025-05-05 07:49] VITALS: BP 104/67; PULSE 73; O2SAT 96
[2025-05-05] MEDS: LIDOCAINE HCL 2% 400 MG/20 ML MDV 8 ML INJ (07:49)
[2025-05-05] MEDS: BUPIVACAINE HCL 0.25% PF 25 MG/10 ML VIAL 2 ML INJ (07:50)
[2025-05-05] MEDS: DEXAMETHASONE SOD PHOS 10 MG/ML VIAL INJ (07:50)
--- NOTE | 2025-05-05 07:55 | P.ON_ITS ---
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 The site was marked.? Written informed consent was obtained and placed on the chart.? The patient was brought to the medical procedure unit and placed in the prone position.? A timeout was completed verifying correct patient, procedure, positioning, and special requirements.? The skin overlying the target points, the designated intercostal nerve, was prepped and draped in the usual sterile fashion.? The target point was achieved with a 20-gauge 5 cm with a 10 mm curved active tip radiofrequency cannula under direct fluoroscopic visualization.? The needle was inserted at right T8.? Motor stimulation was carried out at 2 Hz up to 5 volts with the absence of motor activity.? This was repeated at level right T9, 10.?? Sensory stimulation was carried out.? Concordant pain was realized at the above- mentioned sites.? Then radiofrequency lesioning was carried out times 90 seconds at 80 degrees times 2 lesions at each level.? The radiofrequency probe was removed prior to cannula removal.? The above-mentioned injectate was placed in 1 mL increments.? The needle was removed.? Insertion sites were covered.? The patient was taken to the postoperative recovery area and monitored for an appropriate length of time before being found suitable for discharge in the company of a responsible adult. Anesthesia: Local Surgeon: Ace Ahumada Pathology: none sent Condition: stable Disposition: no change
== END 2025-05-05 07:59 | disposition home or self-care (01) ==
LOC: SURGOUT 06:55
PROVIDERS: PCP Family Medicine; Visit Provider Anesthesiology
DX: G58.0 Intercostal neuropathy (principal)
CPT/HCPCS: 64640; J0665; J1100

== ENCOUNTER 2025-05-19 07:58 | Day surgery (SDC) | payer OTHER, MEDICARE, SELFPAY ==
--- OUTSIDE RECORDS SUMMARY | 2024-12-10 07:30 | XMS_ITS ---
Author Organization [facility] in [place] Address [address] [place] [address] Care Team Providers Care Lean Process Deployment Consultant Name Role Phone Rigo Grant DO Primary Care Provider Jacob Ahuja Unavailable [phone] REASON FOR VISIT rt foot Medications Medication SIG (Take, Route, Frequency, Duration) Notes Start Date End Date Status LaMICtal 25 MG 1 tablet Orally Active Quviviq 50 MG 1 tablet within 30 m inutes of bedtime Orally Once a day Active Requip Active Atenolol 50 MG 1 tablet Orally Once a day for 30 day(s) Active Dexilant 60 MG 1 capsule Orally Once a day Active Vyvanse 70 MG 1 capsule in the mor belen Oral Once a day for 30 days Acti ve Trelegy Ellipta 100-62.5-25 MCG/ACT Inhalation for 30 Days Active Abilify 10 MG 1 tablet Orally Once a day Active Ajovy 225 MG/1.5ML Subcutaneous for 28 Days Active Social History Tobacco Use: Social History Observation Description Date Details (start date - stop date) Never Smoker NA - NA Tobacco Use/Smoking Question Answer Notes Patient is a nonsmoker Section Notes: Never Smoked Vital Signs Temperature 97.2 degrees Fahrenheit 12/10/19 25 Heart Rate 75 /min 12/10/2024 Height 64 in 12/10/2024 Oximetry 98 % 12/10/2024 Encounters Encounter Location Date Provider Diagnosis [facility] (PODIATRY) [address] [place] [address] [place] [address] 12/10/2024 Jacob Felix Pain due to bone fixation device, initial encounter T84.84XA ; Posterior tibial tendon dysfunction (PTTD) of right lower extremity M76.821 and Right foot pain M79.671 Assessments Encounter Date Diagnosis (ICD Code) Assessment Notes Treatment Notes Treatment Clinical Notes Section Notes 12/10/2024 Pain due to bone fixation device, initial encounter (ICD-10 - T84.84XA) Patient is roughly 6 months status post excision of evidence calcaneal implant and continues to improve. Much education and encouragement was given today and that the awkwardness that she feels when bearing weight on uneven surfaces is likely normal secondary to her not having hindfoot range of motion any longer. I do not believe that this will inhibit her from performing activities of daily living or recreation but she has not gotten used to it yet which I am hopeful that she will over the next 6 months. She will follow-up in 6 months with weightbearing foot x-rays 12/10/2024 Posterior tibial tendon dysfunction (PTTD) of right lower extremity (ICD-10 - M76.821) 12/10/2024 Right foot pain (ICD-10 - M79.671) Plan Of Treatment Treatment Notes Assessment Notes Pain due to bone fixation de vice, initial encounter Patient is roughly 6 months status post excision of evidence calcaneal implant and continues to improve. Much education and encouragement was given today and that the awkwardness that she feels when bearing weight on uneven surfaces is likely normal secondary to her not having hindfoot range of motion any longer. I do not believe that this will inhibit her from performing activities of daily living or recreation but she has not gotten used to it yet which I am hopeful that she will over the next 6 months. She will follow-up in 6 months with weightbearing foot x-rays Progress Notes * Mary FUENTES DDOB:[birth year] (54 yo F)Acc No.[id number]:12/10/2024 Follow Up Patient: Mary ROSADO Provider: Leo Felix DPM, MS :1970 A ge:54 Y S ex:Female Date:12/10/2024 Address:[address] [place] [address] [address] [id number] Pcp:Rigo Grant, DO Check In:11:31 AM ESTCheck O ut:11:54 AM EST Subjective: * Chief Complaints: * R t foot * HPI: G eneral: Patient returns to office today with questions about her right foot. She does complain of stiffness in her lateral ankle, but no pain today. She is wanting an update on her progress and woukd like to know a timeline for her recovery from here. She does c/o stiffness in her calf in the morning that she has to stretch out. She relates that walking on uneven surfaces awkward but does not have any pain. She is happy with her progress but hoping that the stiffness in improves. * ROS: G eneral/Constitutional: Chills d enies. F ever d enies. W eight gain?denies. W eight loss d enies. S kin: Skin Ulcers d enies. S kin lesion(s) d enies. ? C ardiovascular: Difficulty breathing on exertion d enies. L eg cramps?denies. E andrae d enies. C hest pain d enies. R espiratory: Difficulty breathing d enies. D yspnea d enies.?Cough d enies. G astrointestinal: Diarrhea d enies. N ausea d enies. V omiting?denies. M usculoskeletal: Bone/Joint Symptoms d enies. C bethany Pain d enies.?Leg cramps d enies. N eurologic: Numbness d enies. T ingling d enies . G ait abnormality d enies. ? H ematology: Anemia D enies. E asy bruising d enies. ? A ll Other Systems: Review of Systems (ROS) S ee HPI for details,All others negative except those mentioned in HPI. 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 Modified On:05/19/2023 Status:confirmed M19.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 Modified On:11/23/2023 Status:confirmed M76.822 Posterior tibial ten dinitis, left leg Modified On:05/23/2023 Status:confirmed I10 BP (high blood press ure) Modified On:06/16/2023 Status:confirmed G47.30 Sleep apnea Modified On:05/26/2023 Status:confirmed F41.1 JOLEEN (generalized anx iety disorder) Modified On:05/26/2023 Status:confirmed D50.9 Anemia, iron deficie ncy Modified On:06/16/2023 Status:confirmed Z96.9 Presence of function al implant, unspecified Modified On:08/09/2023 Status:confirmed M76.71 Peroneal tendinitis, right leg Modified On:11/23/2023 Status:confirmed M19.071 Primary osteoarthrit is, right ankle and foot Modified On:10/25/2023 Status:confirmed M19.91 Primary osteoarthrit is Modified On:06/19/2024 Status:confirmed F31.9 Bipolar disorder Modified On:06/19/2024U Status:confirmed F41.0 Panic attacks Modified On:06/19/2024U Status:confirmed K21.9 GERD (gastroesophage al reflux disease) Modified On:06/19/2024 Status:confirmed * Medical History: * Surgical History: T onsillectomy arpal Tunnel Release 02/02/2010Rotator Cuff Repair, Bicep Repair, Bone Spur RT Shoulder 10/2020ACL LT Knee Tubal Ligation Hysterectomy Bunionectomy Lt Plantar Fascitis Tarsal Tunnel Appendectomy Lt Campbell Calcaneal Osteotomy, Medical Displacement Calcaneal Osteotomy, Cotton Osteotomy, 10/17/2022(cont) Posterior Tibial Tendon epair/Augmentation, Gastrocnemius Rt Cotton Midfoot, Rt modified brostrom-gourde Lateral Ankle Stabilization (cont) Rt Posterior Tibial Tendon Debridement and repair, RT Gastroc, Rt Endoscopic Plantar Faciotomy, RT Peroneal Tenolysis, RT Campbell and Medical di right triple arthrodesis, removal of deep implanted orthopedic hardware, harvest of distal tibial bone graft, ostectomy of calcaneus 05/12/2023right peroneal tendon transfer, removal of deep orthopedic hardware calcaneal cuboid joint, intra op stress exam under fluoro 11/13/2023ight incision of calcaneal bone with removal of retained hardware and peroneal tenolysis. 05/27/24 * Hospitalization/Major Diagno stic Procedure: S ee above * Family History: M other: Hypercholesterolemia, dementia, varicose veins, diagnosed with Unspecified essential hypertension. F ather: diagnosed with Unspecified essential hypertension, Atrial fibrillation, unspecified type. * Social History: T obacco Use: T obacco Use/Smoking P atient is a n onsmoker N ever Smoked. * Medications: T akingAbilify(ARIPiprazole) 10 MG Tablet 1 tablet Orally Once a day Ajovy(Fremanezumab-vfrm) 225 MG/1.5ML Solution Auto-injector Subcutaneous Atenolol 50 MG Tablet 1 tablet Orally Once a day Dexilant(Dexlansoprazole) 60 MG Capsule Delayed Release 1 capsule Orally Once a day LaMICtal(lamoTRIgine) 25 MG Tablet 1 tablet Orally Quviviq(Daridorexant HCl) 50 MG Tablet 1 tablet within 30 minutes of bedtime Orally Once a day Requip Trelegy Ellipta(Jukheiogbuz-Beronnqya-Bnndrf) 100-62.5-25 MCG/ACT Aerosol Powder Breath Activated Inhalation Vyvanse(Lisdexamfetamine Dimesylate) 70 MG Capsule 1 capsule in the morning Oral Once a day Medication List reviewed and reconciled with the patientTaking Abilify(ARIPiprazole) 10 MG Tablet 1 tablet Orally Once a day Taking Ajovy(Fremanezumab-vfrm) 225 MG/1.5ML Solution Auto-injector Subcutaneous Taking Atenolol 50 MG Tablet 1 tablet Orally Once a day Taking Dexilant(Dexlansoprazole) 60 MG Capsule Delayed Release 1 capsule Orally Once a day Taking LaMICtal(lamoTRIgine) 25 MG Tablet 1 tablet Orally Taking Quviviq(Daridorexant HCl) 50 MG Tablet 1 tablet within 30 minutes of bedtime Orally Once a day Taking Requip Taking Trelegy Ellipta(Fogodzxccpq-Sdfhjrdas-Hypljm) 100-62.5-25 MCG/ACT Aerosol Powder Breath Activated Inhalation Taking Vyvanse(Lisdexamfetamine Dimesylate) 70 MG Capsule 1 capsule in the morning Oral Once a day Medication List reviewed and reconciled with the patient * Allergies: n o[Allergies Verified] Objective: * Vitals: H t: 64 in, Temp:97.2F, HR:75/min, Oxygen sat %:98%, Ht-cm: 162.56 cm. * Examination: P odiatry Examination: SKIN: s kin intact, n o sign of infection. MUSCULOSKELETAL: N o pain to palpation, N o gross deformity, n o range of motion or pain with attempted range of motion in the frontal plane from the hindfoot. Ankle joint dorsiflexion is 5 degrees past neutral. NEUROLOGICAL: l ight touch sensation intact, n egative tinel's sign. VASCULAR: P edal pulses palpable, C apillary refill is brisk to toe, D igital hair intact. Assessment: * Assessment: 1. P ain due to bone fixation device, initial encounter - T84.84XA (Primary) 2 . P osterior tibial tendon dysfunction (PTTD) of right lower extremity - M76.821 ?3. R ight foot pain - M79.671 Plan: * Treatment: 2. R ight foot pain I maging: XR Foot RT (3 views) * (Order Cancelled) * Procedure Codes: * * Sign off status: Completed Visit Status: Mannie HK (Check Out) true * Provider: Leo Felix DPM, MS Date: 12/10/2024 Generated for Philippe ardon/Osmin/Nilay on: 0 05/19/2025 08:02 AM EDT History and Physical Notes * HPI (History of Present Illness) Category Sub-Category Detail Notes Category Not es General Patient returns to office today with questions about her right foot. She does complain of stiffness in her lateral ankle, but no pain today. She is wanting an update on her progress and woukd like to know a timeline for her recovery from here. She does c/o stiffness in her calf in the morning that she has to stretch out. She relates that walking on uneven surfaces awkward but does not have any pain. She is happy with her progress but hoping that the stiffness in improves Examination Category Sub-Category Detail Notes Category Not es Podiatry Examination SKIN: skin intact, no sign of infection MUSCULOSKELETAL: No pain to palpation , No gross deformity, no range of motion or pain with attempted range of motion in the frontal plane from the hindfoot. Ankle joint dorsiflexion is 5 degrees past neutral NEUROLOGICAL: light touch sensatio n intact, negative tinel's sign VASCULAR: Pedal pulses palpabl e, Capillary refill is brisk to toe, Digital hair intact
--- OUTSIDE RECORDS SUMMARY | 2024-12-12 10:47 | XMS_ITS | Continuity of Care Document ---
Author Organization [facility] ([place] [place]) Address [address] [place] [address] Phone Care Team Providers Care Inspecting Engineer Name Role Phone Litzy HILL, Anibal Unavailable [...] Prophylaxis Adult Nutrit Couns For Control Of [place] Dis Nov Oral Hygiene Instruction Oral Hygiene Instruction Phdbuawto-cyyrihlooi-wqka Additional Oct Bitewig-single Film Limited Oral Eval Bitewings Four Films Intraoral-periapical 1st Film Prophylaxis Adult Moderate Risk Nutrit Couns For Control Of [place] Dis Jan Oral Hygiene Instruction Nutrit Couns For Control Of [place] Dis Sep No Charge Limited Oral Eval Extract; Erupted Th/exposted Rt - 021 Qrnjsoygg-pckmbbibxb-egvq Additional Aug [employer] Couns For Control Of [place] Dis Aug Pfizer COVID Vaccine Admin Dose [...] Diagnoses Date Provider Providers Copied on Encounter [facility] ([place], [place]), [address] [place] [address], [id number], [place] tel:[phone] Dental Clinic risa (chief complaint) Encounter for screening for dental disorders Litzy HILL Anibal. [address] [place] [address], [id number] , [place]. tel:[phone] [facility] [place]), [address] [place] [address], [id number], [place] tel:[phone] Dental Clinic risa (chief complaint) Body mass index [BMI] 25.0-25.9, adultEncounter for screening for dental disorders Litzy HILL Anibal. [address] [place] [address], [id number] , [place]. tel:[phone] [facility] [place]), [address] [place] [address], [id number], [place] tel:[phone] Dental Clinic dental new (chief complaint) Encounter for screening for dental disorders Litzy HILL Anibal. [address] [place] [address], [id number] , [place]. tel:[phone] [facility] [place] [address] [place] [address], [id number], [place] tel:[phone] Dental Clinic DL (chief complaint) Encounter for screening for dental disorders Dolores HILL Prosper. [address] [place] [address], [id number], [place]. tel:[phone] [facility] [place] [address] [place] [address], [id number], [place] tel:[phone] Dental Clinic PRO (chief complaint) Encounter for screening for dental disorders Catrachita Rutledge. . tel:+ [phone] [facility] [place]), [address] [place], [place], [id number], [place] tel:[phone] Dental Clinic filling (chief complaint) Encounter for screening for dental disorders Abdiel Mac. [address] [place], [address], [place]. tel:+ [phone] [facility] [place] [address] [place], [place], [id number], [place] tel:[phone] Dental Clinic filling (chief complaint) Encounter for screening for dental disorders Abdiel Mac. [address] [place], [address], [place]. tel:+ [phone] [facility] [place] [address] [place] [address], [id number], [place] tel:[phone] COVID ECHD No Information Regina Camacho. [address] [place], [place], [id number] , [place]. tel: [phone] [facility] [place]), [address] [place] [address], [id number], [place] tel:[phone] Dental Clinic Ext. (chief complaint) Encounter for screening for dental disorders Abdiel Mac. [address] [place], [address], [place]. tel:+ [phone] [facility] [place] [address], [place], [id number], [place] tel:[phone] COVID ECHD Encounter for screening for dental disorders Regina Camacho. [address], [place], [id number] , [place]. tel:+ [phone] [facility] [place] [address], [place], [id number], [place] tel:[phone] Dental Clinic Encounter for screening for dental disorders Abdiel Mac. [address] [place], [address], [place]. tel:[phone] [facility] [place] [address], [place], [id number], [place] tel:[phone] Dental Clinic dental limited (chief complaint) Encounter for screening for dental disorders Yogesh Arreaga. [address] [place], [place], [id number] , [place]. tel:[phone] [facility] [place] [address] [place] [address], [id number], [place] tel:[phone] Dental Clinic Dental New (chief complaint) Encounter for screening for dental disorders Yogesh Arreaga. [address] [place], [place], [id number] , [place]. tel:[phone] [facility] [place] [address] [place] [address], [id number], [place] tel:[phone] Dental Clinic Encounter for screening for dental disorders Yogesh Arreaga. [address] [place], [place], [id number] , [place]. tel:[phone] [facility] ([place] [place] [address] [place] [address], [id number], [place] tel:[phone] [facility] [place] No Information Visci DO Chuy. [address] [place], [place], [id number] , [place]. [phone] Family History Family Member Type Diagnosis Age At Onset Father Problem (finding) hypertension Mother Problem (finding) dementia Father Problem (finding) atrial fibrillation Immunizations Vaccine Date Status Comments Pfizer COVID administered Source: New Imm unization Record Pfizer COVID administered Source: New Imm unization Record Payers Payer name Insurance type Covered democrat ID Authorsofiaa lauor(s) D [facility] Dental Dual Elig [id number] D Medicaid Crossover [id number] [place] [employer]FC 190 [id number] Medicaid Wrap - [facility]HC [id number] [place] [employer] 190 [id number] Social History Type Description Quantity Date Captured [...] Of Treatment Date Type Action Status Goal Zoster vaccine (). Due on due Goal PRAPARE ASSESSMENT. Due on due Goal Hepatitis C screening. Due o n due Goal Depression screening. Due on due Goal HPV. Due on [...] due Goal Tdap. Due on due Goal FIT. Due on [...] Goal Lipid panel. Due on due Goal Influenza vaccine. Due on due Goal FOBT. Due on due Goal CT-Colonography. Due on due Goal PRAPARE ASSESSMENT. Due on due Goal Hep A. Due on du e Goal Dietary manageme nt education, guidance, and counseling completed Goal Tdap. Due [...] due Goal Colonoscopy. Due on due Goal Hep A. Due on du e Goal FOBT. Due on due Goal Mammogram. [...] due Goal Colonoscopy. Due on due Goal PRAPARE ASSESSMENT. Due on due Goal Zoster vaccine (1st). Due on due Goal FIT-DNA. Due on due Goal Tdap Vaccine. Due [...]
--- OUTSIDE RECORDS SUMMARY | 2025-01-03 04:45 | XMS_ITS ---
Author Organization [facility] in [place] Address [address] [place] [address] Care Team Providers Care Deep Fryer Assembler Name Role Phone Rigo Grant DO Primary Care Provider Jacob Ahuja Unavailable [phone] Allergies No Known Allergies Reason For Referral Reason Compression stocking s Diagnosis 1 Right foot pain (M79 .671) Referral Organization [facility] (PODIATRY) Referring Provider First Name Jacob Referring Provider Last Name Isidro Referring Provider Speciality Podiatry Referred Provider Specialty Other suppli er Referral Priority Routine REASON FOR VISIT increased pain returning to work Medications Medication SIG (Take, Route, Frequency, Duration) Notes Start Date End Date Status Atenolol 50 MG 1 tablet Orally Once a day for 30 day(s) Active Dexilant 60 MG 1 capsule Orally Once a day Active LaMICtal 25 MG 1 tablet Orally Active Quviviq 50 MG 1 tablet within 30 m inutes of bedtime Orally Once a day Active Ajovy 225 MG/1.5ML Subcutaneous for 28 Days Active Abilify 10 MG 1 tablet Orally Once a day Active Meloxicam 15 MG 1 tablet Orally Once a day for 30 days 01/03/2025 Active Trelegy Ellipta 100-62.5-25 MCG/ACT Inhalation for 30 Days Active Vyvanse 70 MG 1 capsule in the mor belen Oral Once a day for 30 days Acti ve predniSONE 10 MG 3 tablets once a day for 3 days, 2 tablets once a day for 3 days, 1 tablet once a day for 3 days Orally for 9 days 01/03/2025 Active Requip Active Social History Tobacco Use: Social History Observation Description Date Details (start date - stop date) Never Smoker NA - NA Tobacco Use/Smoking Question Answer Notes Patient is a nonsmoker Section Notes: Never Smoked Vital Signs Temperature 97 degrees Fahrenheit 01/03/2025 Heart Rate 66 /min 01/03/2025 Height 64 in 01/03/2025 Weight 174 lbs 01/03/2025 BMI 29.86 kg/m2 01/03/2025 Oximetry 98 % 01/03/2025 Encounters Encounter Location Date Provider Diagnosis [facility] (PODIATRY) [address] [place] [address] [place] [address] 01/03/2025 Jacob [facility] Posterior tibial tendon dysfunction (PTTD) of right lower extremity M76.821 ; Primary osteoarthritis, right ankle and foot M19.071 and Right foot pain M79.671 Assessments Encounter Date Diagnosis (ICD Code) Assessment Notes Treatment Notes Treatment Clinical Notes Section Notes 01/03/2025 Posterior tibial tendon dysfunction (PTTD) of right lower extremity (ICD-10 - M76.821) Patient presents relating to ongoing pain since returning back to work. Given the amount of time that she has been off of work and relatively sedentary it is likely that her pain is secondary to the rapid increase in activity and weightbearing. I did provide restrictions for work which will limit her weightbearing activity and allow more frequent breaks. I prescribed meloxicam as well as a prednisone taper. I recommended RICE therapy as well as stretching exercises. Finally I prescribed [place] 5/325 1 by mouth every 6 hours as needed for pain #28. She is to take these only when absolutely necessary.She does have some pain over the third metatarsal but x-rays are negative for fracture her pain may represent a stress fracture and if her pain in this area worsens at all or does not get better over the next couple of weeks she is to call for sooner appointment otherwise we will follow-up in 2 months 01/03/2025 Primary osteoarthritis, right ankle and foot (ICD-10 - M19.071) 01/03/2025 Right foot pain (ICD-10 - M79.671) Plan Of Treatment Medication Medication Name Sig Start Date Stop Date Notes Meloxicam 15 MG 1 tablet Orally Once a day for 30 days predniSONE 10 MG 3 tablets once a day for 3 days, 2 tablets once a day for 3 days, 1 tablet once a day for 3 days Orally for 9 days 01/03/2025 Treatment Notes Assessment Notes Posterior tibial tendon dysf unction (PTTD) of right lower extremity Patient presents relating to ongoing eben n since returning back to work. Given the amount of time that she has been off of work and relatively sedentary it is likely that her pain is secondary to the rapid increase in activity and weightbearing. I did provide restrictions for work which will limit her weightbearing activity and allow more frequent breaks. I prescribed meloxicam as well as a prednisone taper. I recommended RICE therapy as well as stretching exercises. Finally I prescribed [place] 5/325 1 by mouth every 6 hours as needed for pain #28. She is to take these only when absolutely necessary.She does have some pain over the third metatarsal but x-rays are negative for fracture her pain may represent a stress fracture and if her pain in this area worsens at all or does not get better over the next couple of weeks she is to call for sooner appointment otherwise we will follow-up in 2 months Pending Test Test Name Order Date XR Foot RT (3 views) * 01/03/2025 Referrals Referral Date Details 01/03/2025 01/03/2025, Compress ion stockings Progress Notes * Mary FUENTES DDOB:[birth year] (54 yo F)Acc No.[id number]:01/03/2025 Follow Up Patient: Siria CUEVA Mary Kenny Provider: Leo Felix DPM MS :1970 A ge:54 Y S ex:Female Date:01/03/2025 Address:[address] [place] [address] [id number] Pcp:Rigo Grant, DO Check In:08:45 AM ESTCheck O ut:09:31 AM EST Subjective: * Chief Complaints: * I ncreased pain returning to work * HPI: G eneral: Pt ispost op right foot last surgery right incision of calcaneal bone with removal retained hardware and peroneal tenolysis DOS 05/27/24. States back to work 2 weeks ago on feet all day 9 hours. pain increasing worse to right anterior foot radiates up leg to calf rates /. Takes nothing for pain states nothing helps it . * ROS: G eneral/Constitutional: Chills d enies. [...] subluxat ion of right foot, sequela Modified On:08/03/2023U Status:confirmed M19.071 Osteoarthritis of an kle, right Modified On:05/20/2023U Status:confirmed Z96.661 Presence of right ar tificial ankle joint Modified On:05/19/2023U Status:confirmed M19.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 Modified On:11/23/2023U Status:confirmed M76.822 Posterior tibial ten dinitis, left leg Modified On:05/23/2023U Status:confirmed I10 BP (high blood press ure) [...] Modified On:06/19/2024 Status:confirmed F31.9 Bipolar disorder Modified On:06/19/2024 Status:confirmed F41.0 Panic attacks Modified On:06/19/2024 Status:confirmed K21.9 GERD (gastroesophage al reflux disease) [...] Endoscopic Plantar Faciotomy, RT Peroneal Tenolysis, RT [place] and Medical di right triple arthrodesis, removal [...] bedtime Orally Once a day Requip Trelegy Ellipta(Sypahudwzgl-Soyithwzq-Agegmj) 100-62.5-25 MCG/ACT Aerosol Powder Breath Activated Inhalation [...] Once a day Taking Requip Taking Trelegy Ellipta(Sjtkwumfwzc-Tsacbizus-Lfmapx) 100-62.5-25 MCG/ACT Aerosol Powder Breath Activated Inhalation Taking Vyvanse(Lisdexamfetamine Dimesylate) 70 MG Capsule 1 capsule in the morning Oral Once a day Medication List reviewed and reconciled with the patient * Allergies: N .K.D.A.no[Allergies Verified] Objective: * Vitals: W t:174lbs, Ht: 64 in, Temp:97F, HR:66/min, BMI:29.86Index, Pain scale:81-10, Oxygen sat %:98%, Ht-cm: 162.56 cm, Wt-k.93 kg. * Examination: P odiatry Examination: SKIN: s kin intact, n o sign of infection. MUSCULOSKELETAL: M ild pain on palpation over the third metatarsal., N o gross deformity. Hindfoot has no range of motion in the frontal plane. Ankle joint dorsiflexion is to neutral but not past. I am unable to reproduce the patient's pain. NEUROLOGICAL: l ight touch sensation intact, n egative tinel's sign. VASCULAR: P edal pulses palpable, C apillary refill is brisk to toe, D igital hair intact. X -rays: x-rays were obtained & reviewed in my office. There is no evidence of fracture or stress fracture. Hindfoot fusion is noted with stable hardware and postsurgical changes to the anterior calcaneus which are unchanged from x-rays obtained previously. Assessment: * Assessment: 1. P osterior tibial tendon dysfunction (PTTD) of right lower extremity - M76.821 (Primary)? 2. P rimary osteoarthritis, right ankle and foot - M19.071 3 .?Right foot pain - M79.671 Plan: * Treatment: 2. R ight foot pain Start Meloxicam Tablet, 15 MG, 1 tablet, Orally, Once a day, 30 days, 30, Refills 3; S tart predniSONE Tablet, 10 MG, 3 tablets once a day for 3 days, 2 tablets once a day for 3 days, 1 tablet once a day for 3 days, Orally, 9 days, 18 tablet. I maging: XR Foot RT (3 views) * Referral To:Other supplier Reason:Compression stockings * Procedure Codes: * * Sign off status: Completed Visit Status: C HK (Check Out) true * Provider: Leo Felix DPM, MS Date: 0 01/03/2025 Generated for Philippe ardon/Osmin/Stephanieitting on: 0 05/19/2025 08:01 AM EDT History and Physical Notes * HPI (History of Present Illness) Category Sub-Category Detail Notes Category Not es General Pt ispost op ri ght foot last surgery right incision of calcaneal bone with removal retained hardware and peroneal tenolysis DOS 05/27/24. States back to work 2 weeks ago on feet all day 9 hours. pain increasing worse to right anterior foot radiates up leg to calf rates 8/10. Takes nothing for pain states nothing helps it Examination Category Sub-Category Detail Notes Category Not es Podiatry Examination SKIN: skin intact, no sign of infection X-rays: x-rays were obtained & reviewed in my office. There is no evidence of fracture or stress fracture. Hindfoot fusion is noted with stable hardware and postsurgical changes to the anterior calcaneus which are unchanged from x-rays obtained previously. MUSCULOSKELETAL: Mild pain on palpati on over the third metatarsal., No gross deformity. Hindfoot has no range of motion in the frontal plane. Ankle joint dorsiflexion is to neutral but not past. I am unable to reproduce the patient's pain NEUROLOGICAL: light touch sensatio n intact, negative tinel's sign VASCULAR: Pedal pulses palpabl e, Capillary refill is brisk to toe, Digital hair intact Consultation Request Notes Referral Date Referring Provider Referred Provider Not es 01/03/2025 Jacob Felix Compressio n stockings
--- OUTSIDE RECORDS SUMMARY | 2025-01-03 05:38 | XMS_ITS ---
Author Organization [facility] in [place] Address [address] [place] [address] Care Team Providers Care Exercise Science Internship Name Role Phone Rudy LOAIZARigo Primary Care Provider Jacob Ahuja [phone] REASON FOR VISIT pain medication Medications Medication SIG (Take, Route, Frequency, Duration) Notes Start Date End Date Status HYDROcodone-Acetaminophen 5-325 MG 1 tablet as needed Orally every 6 hrs for 7 days 01/03/2025 Active Encounters Encounter Location Date Provider Diagnosis [facility] (PODIATRY) [address] [place] [address] [place] [address] 01/03/2025 Jacob Felix Plan Of Treatment Medication Medication Name Sig Start Date Stop Date Notes HYDROcodone-Acetaminophen 5- 325 MG 1 tablet as needed Orally every 6 hrs for 7 days 01/03/2025 Progress Notes * Mary FUENTES DDOB:[birth year] (54 yo F)Acc No.[id number]:01/03/2025 Patient: Siria Mary CUEVA :1970 A ge:54 Y S ex:Female Address:[place] [address] * Refills Start HYDROcodone-Acetaminophen Tablet, 5-325 MG, Orally, 28 Tablet, 1 tablet as needed, every 6 hrs, 7 days, Refills=0 * true * Date: Generated for Printi ng/Faxing/eTransmitting on: 0 05/19/2025 08:00 AM EDT
--- OUTSIDE RECORDS SUMMARY | 2025-05-19 08:00 | XMS_ITS | Encounter Summary ---
Author Organization [facility] Address [address] [place] [address] Care Team Providers Care Packaging Tech Name Role Phone Shannon Gómez DO Primary Care Provider + [phone] Reason for Visit * Reason Onset Date Comments Medication Refill 11/27/2024 Results 11/27/2024 Pt thought outsi de facility sent results adv we havent received anything and gave fax number of [phone]. Encounter Details Date Type Department Care Team (Late st Contact Info) Description 11/27/2024 Telephone Central Scheduling [address] [place] [address] Kelly Sidhu Medication Refill; Results (Pt thought outside facility sent results adv we havent received anything and gave fax number of [phone].) Social History Tobacco Use Types Packs/Day Years [...] IS ATTACHED TO ENCOUNTER [id number] [place] [address] [address] [facility] documented in this encounter Plan of Treatment Not on file documented as of this encounter Visit Diagnoses Not on filedocumented in this encounter Care Teams Packaging Tech Relationship Specialty Start Date End Date Shannon Gómez DO [address] [facility] [address] [place] [address] PCP - General Family Medicine 11/14/23 documented as of this encounter
--- OUTSIDE RECORDS SUMMARY | 2025-05-19 08:00 | XMS_ITS | Encounter Summary ---
Author Organization [employer] [facility] tem Address [id number] [address] [place] [address] Care Team Providers Care Senior Java Programmer Analyst Name Role Phone Dalia Morales DO, George R Primary Care Provider + Encounter Details Date Type Department Care Team (Latest Contact Info) Description 05/12/2025 Travel Social History Tobacco Use Types Packs/Day [...] Care Team (Late st Contact Info) Description 06/06/2025 9:00 AM EDT Office Visit [facility], A Department of [address] [place] [address] Vicki Roche DO [address] [facility] [place] [address] Noman Mayo MD [address] [facility] [place] [address] 08/19/2025 3:30 PM EDT Office Visit [facility], A Department of [address] [place] [address] Pauline Christensen MD [address] [place] [address] [address] [place] [address] documented as of this encounter Visit Diagnoses Not on filedocumented in this encounter Additional Health Concerns Assessment Noted Time PHQ-9 Depression Total Score: 0 10/23/20 23 1:26 PM EST documented as of this encounter Care Teams Senior Java Programmer Analyst Relationship Specialty Start Date End Date Eliceo Gómez Jr., DO [address] [place] [address], [address] [place] [address] PCP - General Family Medicine 12/11/19 Jenna Butler [address] Consulting Physician Behavioral Health 12/20/23 documented as of this encounter
--- OUTSIDE RECORDS SUMMARY | 2025-05-19 08:00 | XMS_ITS | Encounter Summary ---
Author Organization [facility] enter Address [address] [place] [address] Care Team Providers Care Eap Consultant Name Role Phone Shannon Gómez DO Primary Care Provider + [phone] Reason for Visit * Reason Comments Medication Refill Encounter Details Date Type Department Care Team (Late st Contact Info) Description 02/16/2025 Refill Gastroenterology and Hepatology [facility] [address] [place] [address] Padmaja Ledezma MD, PhD [address] [facility] [address] [place] [address] Chronic diarrhea Social History Tobacco Use Types [...] (Premier protein); pt's secondary medicaid will not flower picker the coverage of ONS since her [...] Diarrhea documented in this encounter Care Teams Eap Consultant Relationship Specialty Start Date End Date Shannon Gómez DO [address] [facility] [address] [place] [phone] PCP - General Family Medicine 11/14/23 documented as of this encounter
--- OUTSIDE RECORDS SUMMARY | 2025-05-19 08:00 | XMS_ITS | Clinical Summary ---
Author Organization [facility] Address [address] [place] [address] [place] [address] Care Team Providers Care Administrative Tech Name Role Phone Shannon Gómez DO Primary Care Provider [phone] Allergies Active Allergy Reactions Criticality Noted Date [...] 1 tablet by mouth daily. 05/14/20 24 Active methylphenidate ER 54 MG tablet Take [...] 24 025 Active omeprazole 40 MG Cap capsuleIndicati ons:[place] grade D esophagitis TAKE 1 CAPSULE BY [...] Chronic constipation 10/25/2024 History of colectomy 10/25/2024 Family History Medical History Relation Name Comments [...] 1 01/01/2023, 09/14/2022, 06/28/2021, Additional history exists INFLUENZA VACCINE (#1) 2025 , 12/21/2023, 08/17/2022, Additional history exists TETANUS 06/22/2030 06/22/2020 TDAP (ADULT) Completed 06/22/2020 HEP B VACCINE Completed 05/21/2024, 07/0 05/2008, 04/11/2008 Insurance MEDICAID MEDICARE UHC HMO Care Teams Administrative Tech Relationship Specialty Start Date End Date Shannon Gómez DO [address] [facility] [address] [place] [address] PCP - General Family Medicine 11/14/23
--- OUTSIDE RECORDS SUMMARY | 2025-05-19 08:01 | XMS_ITS | Encounter Summary ---
Author Organization [facility] Address [address] [place] [address] Care Team Providers Care Shoe Planner Name Role Phone Eliceo Gómez DO Primary Care Provider [phone] Eliceo Gómez DO Unavailable [phone] Beata Hernandez Unavailable Juan Damico DO Unavailable Encounter Details Date Type Department Care Team (Late st Contact Info) Description 12/14/2023 Orders Only [facility] [address] [place] [phone] A, Unknown Practice [address] [place] [phone] Social History Tobacco Use Types Packs/Day Years [...] you attend chur or cheondoism services? Never 04/14/2023 Do you [...] Recorded Patient Health Questionnaire-2 Score 0 10/03/2023 [facility] [...] DERM [address] [place] [address] Nelsy Harris APRN-SAFETY DEPOSIT CLERK [address] [place] [address] documented as of this encounter Procedures Procedure [...] on filedocumented in this encounter Care Teams Shoe Planner Relationship Specialty Start Date End Date Eliceo Gómez DO [address] [place] [address] PCP - General Family Medicine 04/04/23 Eliceo Gómez DO [address] [facility] [address] [place] [address] PCP - [facility] 05/06/2310/05 Beata Hernandez PA [address] [facility] [address] [place] [address] Dietitian Nutrition 08/08/23 05/16/24 Juan Damico DO [address] [place] [address] Referring Physician Obstetrics and Gynecology 05/20/24 documented as of this encounter
--- OUTSIDE RECORDS SUMMARY | 2025-05-19 08:01 | XMS_ITS | Encounter Summary ---
Author Organization [facility] Address [address] [place] [address] Care Team Providers Care Associate Theatre Professor Name Role Phone Eliceo Gómez DO Primary Care Provider [phone] Eliceo Gómez DO Unavailable [phone] Beata Hernandez Unavailable Juan Damico DO Unavailable [phone] Encounter Details Date Type Department Care Team (Late st Contact Info) Description 11/13/2023 Orders Only [facility] [address] [place] [id number] A, Unknown Practice [address] [place] [address] Social History Tobacco Use Types Packs/Day Years [...] you attend chur or sikhism services? Never 04/14/2023 Do you belong to [...] Recorded Patient Health Questionnaire-2 Score 0 10/03/2023 [facility] [...] DERM [address] [place] [address] Nelsy Harris APRN-CAGE CLERK [address] [place] [address] documented as of this encounter Procedures Procedure [...] filedocumented in this encounter Care Teams Associate Theatre Professor Relationship Specialty Start Date End Date Eliceo Gómez DO [address] [place] [address] PCP - General Family Medicine 04/04/23 Eliceo Gómez DO [address] [place] [address] PCP - [facility] 05/06/2310/05 Beata Hernandez PA [address] [place] [address] Dietitian Nutrition 08/08/23 05/16/24 Juan Damico DO [address] [place] [address] Referring Physician Obstetrics and Gynecology 05/20/24 documented as of this encounter
--- OUTSIDE RECORDS SUMMARY | 2025-05-19 08:01 | XMS_ITS | Encounter Summary ---
Author Organization [facility] Address [address] [facility] [place] [address] Care Team Providers Care Library Serials Assistant Name Role Phone Eliceo Gómez DO Primary Care Provider [phone] Eliceo Gómez DO Unavailable [phone] Juan Damico DO Unavailable [phone] Encounter Details Date Type Department Care Team (Late st Contact Info) Description 07/22/2024 Abstract [facility] [address] [facility] [address] [place] [address] Eliceo Gómez DO [address] [facility] [address] [place] [address] Social History Tobacco Use Types Packs/Day Years [...] Recorded Patient Health Questionnaire-2 Score 0 07/11/2024 [facility] - Occupational Stress Questionnaire Answer Date [...] in a residential (including now)? No 10/25/2023 Housing Stability Vital [...] were you homeless or living in a residential (including now)? No 05/01/2024 Comments No Sex [...] DERM [address] [place] [address] Nelsy Harris, BUSINESS SYSTEMS CONSULTANT-PIN FEATHER MACHINE OPERATOR [address] [place] [address] documented as of this encounter Visit Diagnoses Not on filedocumented in this encounter Care Teams Library Serials Assistant Relationship Specialty Start Date End Date Eliceo Gómez, DO [address] [place] [address] PCP - General Family Medicine 04/04/23 Eliceo Gómez, DO [address] [place] [address] PCP - [facility] 05/06/2310/05 Juan Damico, DO [address] [place] [address] Referring Physician Obstetrics and Gynecology 05/20/24 documented as of this encounter
--- OUTSIDE RECORDS SUMMARY | 2025-05-19 08:01 | XMS_ITS | Encounter Summary ---
Author Organization [facility] Address [address] [place] [address] Care Team Providers Care Cone Examiner Name Role Phone Eliceo Gómez DO Primary Care Provider [phone] Eliceo Gómez DO Unavailable [phone] Beata Hernandez Unavailable Juan Damico DO Unavailable [phone] Encounter Details Date Type Department Care Team [...] often do you attend chur ch or rastafarian services? Never 04/14/2023 Do you [...] Recorded Patient Health Questionnaire-2 Score 0 10/03/2023 [facility] - Occupational Stress Questionnaire Answer [...] DERM [address] [place] [phone] Nelsy Harris APRN-CHOCOLATIER [address] [place] [address] documented as of this encounter Procedures Procedure Name Priority Date/Time Associated Diagnosis Comments XR FOOT RT MIN 3V 11/13/2023 12: 52 PM EST documented in this encounter Results * XR FOOT RT MIN 3V (11/13/2023 12:52 PM EST) Anatomical Region Laterality Modality Other 11/13/2023 12:5 2 PM EST Narrative 11/13/2023 12:54 PM EST The [address] [address] XRay Report Signed Patient: MARY FUENTES MR#: [id number] : 1970 Acct:[id number] Age/Sex: 53 / F ADM Date: 11/13/23 Loc: SURGOUT Attending Dr: Jacob Felix D.P.M. Ordering Physician: Ritchie Gonzalez D.P.M. Date of Service: 11/13/23 Procedure(s): XR foot RT min 3V Accession Number(s): [id number] cc: Isatu GÓMEZ ; Ritchie Gonzalez D.P.M. The [place] [address] Patient Name: MARY FUENTES MRN: [id number] date: 1970 Sex: F Assigned Patient Location: [facility] Current Patient Location: Accession/Order Number: [id number] Exam Date: 11/13/2023 11:30 Report Date: 11/13/2023 [...] Signed By: 11/13/23 1254 DD/ 1252 TD/TT: Gas Well Drilling Manager: Procedure Note Radiology, Radiologist, MD - 01/10/2024 [place] [address] XRay Report Signed Patient: MARY FUENTES DMR#: [id number] : 1970Acct:[id number] Age/Sex: 53 / FADM Date: 11/13/23 Loc: SURGOUT Attending Dr: Jacob Felix D.P.M. Ordering Physician: Ritchie Gonzalez D.P.M. Date of Service: 11/13/23 Procedure(s): XR foot RT min 3V Accession Number(s): [id number] cc: Isatu GÓMEZ ; Ritchie Gonzalez D.P.M. [place] [address] Patient Name: MARY FUENTES MRN: [id number] date: 1970 Sex: F Assigned Patient Location: [facility] Current Patient Location: Accession/Order Number: [id number] Exam Date: 11/13/2023 11:30 Report Date: 11/13/2023 [...] M.D. Signed By:11/13/23 1254 DD/ 1252 TD/TT: Gas Well Drilling Manager: Generic External Data Provider [facility] Final Result documented in this encounter Visit Diagnoses Not on filedocumented in this encounter Care Teams Cone Examiner Relationship Specialty Start Date End Date Eliceo Gómez DO [address] [facility] [address] [place] [id number] PCP - General Family Medicine 04/04/23 Eliceo Gómez DO [address] [place] [address] PCP - [facility] 05/06/2310/05 Beata Hernandez PA [address] [place] [address] Dietitian Nutrition 08/08/23 05/16/24 Juan Damico DO [address] [place] [address] Referring Physician Obstetrics and Gynecology 05/20/24 documented as of this encounter
--- OUTSIDE RECORDS SUMMARY | 2025-05-19 08:01 | XMS_ITS | Encounter Summary ---
Author Organization [facility] Address [address] [place] [address] Care Team Providers Care Crts Name Role Phone Eliceo Gómez DO Primary Care Provider [phone] Eliceo Gómez DO Unavailable [phone] Beata Hernandez Unavailable Juan Damico DO [...] often do you attend chur ch or pentecostalism services? Never 04/14/2023 Do you belong to [...] Recorded Patient Health Questionnaire-2 Score 0 10/03/2023 [facility] - Occupational Stress Questionnaire Answer Date Recorded [...] DERM [address] [place] [address] Nelsy Harris APRN-MILLING MACHINE OPERATOR GEAR [address] [place] [address] documented as of this encounter Procedures Procedure Name Priority Date/Time Associated Diagnosis Comments XR LUMBAR SPINE 6V W BENDING 12/14/2023 1:52 PM EST documented in this encounter Results * XR LUMBAR SPINE 6V W BENDING (12/14/2023 1:52 PM EST) Anatomical Region Laterality Modality Other 12/14/2023 1:52 PM EST Narrative 12/14/2023 1:54 PM EST The [address] [address] XRay Report Signed Patient: ELSIE FUENTES MR#: [id number] : 1970 Acct:[id number] Age/Sex: 53 / F ADM Date: 12/14/23 Loc: [facility] Attending Dr: Ace Ahumada M.D. Ordering Physician: Ace Ahumada M.D. Date of Service: 12/14/23 Procedure(s): XR lumbar spine 6V w bending Accession Number(s): [id number] cc: Ace Ahumada M.D.; Isatu GÓMEZ The [place] [address] Patient Name: ELSIE FUENTES MRN: [id number] date: 1970 Sex: F Assigned Patient Location: [facility] Current Patient Location: [facility] Accession/Order Number: [id number] Exam Date: 12/14/2023 13:00 Report Date: 12/14/2023 [...] Signed By: 12/14/23 1354 DD/ 1352 TD/TT: Cutting Torch Operator: Procedure Note Radiology, Radiologist, MD - 12/14/2023 [place] [address] XRay Report Signed Patient: ELSIE FUENTES DMR#: [id number] : 1970Acct:[id number] Age/Sex: 53 / FADM Date: 12/14/23 Loc: RAD Attending Dr: Ace Ahumada M.D. Ordering Physician: Ace Ahumada M.D. Date of Service: 12/14/23 Procedure(s): XR lumbar spine 6V w bending Accession Number(s): [id number] cc: Ace Ahumada M.D.; Isatu GÓMEZ [place] [id number] Patient Name: ELSIE FUENTES MRN: [id number] date: 1970 Sex: F Assigned Patient Location: [facility] Current Patient Location: [facility] Accession/Order Number: [id number] Exam Date: 12/14/2023 13:00 Report Date: 12/14/2023 [...] M.D. Signed By:12/14/23 1354 DD/ 1352 TD/TT: Cutting Torch Operator: Generic External Data Provider [facility] Final Result documented in this encounter Visit Diagnoses Not on filedocumented in this encounter Care Teams Crts Relationship Specialty Start Date End Date Eliceo Gómez DO [address] [place] [id number] PCP - General Family Medicine 04/04/23 Eliceo Gómez DO [address] [place] [address] PCP - [facility] 05/06/2310/05 Beata Hernandez PA [address] [place] [address] Dietitian Nutrition 08/08/23 05/16/24 Juan Damico DO [address] [place] [address] Referring Physician Obstetrics and Gynecology 05/20/24 documented as of this encounter
--- OUTSIDE RECORDS SUMMARY | 2025-05-19 08:01 | XMS_ITS | Encounter Summary ---
Author Organization [facility] tem Address [id number] [address] [place] [address] Care Team Providers Care Metal Moulder'S Assistant Name Role Phone Dalia Morales DO, George R Primary Care Provider + Reason for Visit * Reason Onset Date Comments Worsening Symptoms 05/07/2025 Encounter Details Date Type Department Care Team (Late st Contact Info) Description 05/07/2025 Telephone [facility], A Department of [facility] [address] [facility] [address] [place] [address] Savanah Beyer Worsening Symptoms Social History Tobacco Use Types Packs/Day Years [...] encounter Miscellaneous Notes * Telephone Encounter - Savanah Pepito - 05/07/2025 8:51 AM EDT Patient is experiencing worsening symptoms, please see below in regards to the worsening symptoms. Symptom description: neuropathy both feet and legs Onset when symptom started to worsen: last 6 months ongoing Any medication changes around the onset of worsening symptoms: Patient stated no Intermittent or constant symptom:Constant Does the symptom change based on medication dose times (ie. when medication kicks in or wears off)?- Patient stated no When was your last urinalysis? Patient stated unsure ESTABLISHED PATIENT at 3:30 PM (30 min)Arrive by 3:15 PM Tuesday August 19, 2025 Appointment Provider:Pauline Christensen MD in [facility] * Telephone Encounter - Kim Acharya RN - 05/07/2025 8:51 AM EDT Called and left VM for patient advising that we have not seen patient since 10/2023 and these seem to be new symptoms that we have not been treating the patient for before. Advised to possible reach out to PCP to see if willing to see sooner or prescribe since we have not seen patient in a year carl half and we do not have any sooner openings than current scheduled appointment in 08/2025. Advised could sent to Dr. Christensen to see if willing to prescribe or start something prior to being seen. * Telephone Encounter - Pauline Christensen MD - 05/07/2025 8:51 AM EDT We have [facility] after she received Inspire device- last visit was last year. I know she has restless leg syndrome and is on Requip for it. I would inquire if Requip is still working to help the symptoms, or if by any chance it seems to be making the symptoms worse. Does she describe a worsening in restless leg symptoms or is this a a new leg pain/sensory change? If it's restless leg symptoms, we can make adjustments in her requip dosage.If this is a totally different pain/sensation, we can order neuropathy workup before following up in clinic. Also, please ask if she has been taking/can take Iron supplement. Her last Ferritin level from 2023was low, and with h/o restless legs, she should ideally take ferrous sulfate supplement. Thanks * Telephone Encounter - Kim Acharya RN - 05/07/2025 8:51 AM EDT RN called and left VM for patient to return call to clinic * Telephone Encounter - Joanna Piper - 05/07/2025 8:51 AM EDT Ship'S Surveyor received a call from patient regarding below encounter. Patient expressed she was returning call to discuss. Please advise . Patient would like a call back . Mary [phone]. * Telephone Encounter - Kim Acharya RN - 05/07/2025 8:51 AM EDT RN called patient again and had to leave another . If patient calls back, please see if RN is able to take call as our office has reached out 3 times * Telephone Encounter - Kim Acharya RN - 05/07/2025 8:51 AM EDT RN received transferred call from front desk receptionist. Patient state she is still taking Requip for her RLS and it is helping with that. He is also takingher iron supplement. She did state that she is having a change in sensation, pain and heaviness in legs. She had an EMG done at [facility] [facility] and her snow plow operator wanted her to speak with our office regarding results. RN advised on lab orders what will be placed to be completed and we will get EMG results from [place] for review and advise further once this is completed. She stated understanding. * Telephone Encounter - Kim Acharya RN - 05/07/2025 8:51 AM EDT RN attempted to call [facility] in [place] to get reports faxed but no answer x2 and no option to leave VM. Did get fax # from recording. RN faxed request for EMG reports to be sent to our office. * Telephone Encounter - Kiara Álvarez - 05/07/2025 8:51 AM EDT Ship'S Surveyor received call from patient in regards to encounter below. Stated she has been speaking with nurse. She is requesting to be sooner by Dr Christensen due to her new symptoms. Please advise she can be reached at [phone] Thank you so much documented in this encounter Plan of Treatment Upcoming Encounters Date Type Department Care Team (Late st Contact Info) Description 06/06/2025 9:00 AM EDT Office Visit [facility], A Department of [address] [address] [place] [address] [place] [address], [address] [place], [place] [id number] Noman Mayo MD [address] [facility] [place] [address] 08/19/2025 3:30 PM EDT Office Visit [facility], [facility] Department of [facility] [address] [place] [address] Pauline Christensen MD [address] [facility] [address], [address] [place] [address] documented as of this encounter Results * Protein electrophoresis, urine (05/14/2025 5:00 AM EDT) Urine Protein Electrophoresis Interp Unremarkable protein distribution, no monoclonal bands 05/16/2025 5:14 PM EDT [facility] Urine Collection / Unknown 05/14/2025 5:00 AM EDT 05/14/2025 7:04 AM EDT Pauline Christensen MD URINE ORDERABLES Final Result [facility] [place] [address], * Thiamin (Vitamin B1), WB (05/13/2025 6:48 AM EDT) THIAMIN (VITAMIN B1), WB 114 70 - 180 nmol/L 05/15/2025 12:50 PM EDT [facility] Comment: ADDITIONAL INFORMATION This test was developed and its performance characteristics determined by [facility] in a manner consistent with CLIA requirements. This test has not been cleared or approved by the U.S. Food and Drug Administration. Test Performed by: [facility] - [address] [address] Cement Kiln Operator: Sindi Archibald Ph.D.; CLIA# [id number] Blood Venous blood / Unknown Venipuncture / Unknown 05/13/2025 6:48 AM EDT 05/13/2025 6:48 AM EDT us Pauline Christensen MD LAB BLOOD ORDERABLES Final Resu lt [facility] [address] [place] [address], [place] * Protein electrophoresis, serum (05/13/2025 6:48 AM EDT) TOTAL PROTEIN 6.2 6.0 - 8.0 g/dL 05/14/2025 9:57 AM EDT [facility] ALPHA 1 GLOBULIN 0.3 0.1 - 0.4 g/dL 05/14/2025 9:57 AM EDT [facility] ALPHA 2 GLOBULIN 0.6 0.4 - 1.1 g/dL 05/14/2025 9:57 AM EDT [facility] BETA GLOBULIN 0.8 0.5 - 1.2 g/dL 05/14/2025 9:57 AM EDT [facility] GAMMA GLOBULIN 0.7 0.5 - 1.6 g/dL 05/14/2025 9:57 AM EDT [facility] Protein Electrophoresis Interp Unremarkable protein distribution, no monoclonal bands 05/14/2025 9:57 AM EDT [facility] Albumin 3.9 3.4 - 5.3 g/dL 05/14/2025 9:57 AM EDT [facility] Blood Venous blood / Unknown Venipuncture / Unknown 05/13/2025 6:48 AM EDT 05/13/2025 6:48 AM EDT us Pauline Christensen MD LAB BLOOD ORDERABLES Final Resu lt [facility] [address] [place] [address], [place] [phone] * Heavy Metals Scrn with Demographics (05/13/2025 6:48 AM EDT) HEAVY METAL VENOUS/CAPILLARY Venous 05/14/2025 2:29 PM EDT [facility] ARSENIC, B <1 <13 ng/mL 05/14/2025 2:29 PM EDT [facility] Comment: ADDITIONAL INFORMATION This test was developed and its performance characteristics determined by [facility] in a manner consistent with CLIA requirements. This test has not been cleared or approved by the U.S. Food and Drug Administration. CADMIUM, B <0.2 <5.0 ng/mL 05/14/2025 2:29 PM EDT [facility] Comment: ADDITIONAL INFORMATION This test was developed and its performance characteristics determined by [facility] in a manner consistent with CLIA requirements. This test has not been cleared or approved by the U.S. Food and Drug Administration. MERCURY, B <1 <10 ng/mL 05/14/2025 2:29 PM EDT [facility] Comment: ADDITIONAL INFORMATION This test was developed and its performance characteristics determined by [facility] in a manner consistent with CLIA requirements. This test has not been cleared or approved by the U.S. Food and Drug Administration. LEAD, B <1.0 <3.5 mcg/dL 05/14/2025 2:29 PM EDT [facility] Comment: ADDITIONAL INFORMATION Testing performed by Triple Quadrupole Inductively Coupled Plasma-Mass Spectrometry (ICP-MS/MS). This test was developed and its performance characteristics determined by [facility] in a manner consistent with CLIA requirements. This test has not been cleared or approved by the U.S. Food and Drug Administration. Blood Venous blood / Unknown Venipuncture / Unknown 05/13/2025 6:48 AM EDT 05/13/2025 6:48 AM EDT Pauline Christensen MD LAB BLOOD ORDERABLES Final Resu lt Performing Organization Address City/[facility]/ZIP Co de Phone Number [facility] [address] [place] [address], [place] * Copper, S (05/13/2025 6:48 AM EDT) COPPER 110 77 - 206 mcg/dL 05/14/2025 2:13 PM EDT [facility] Comment: ADDITIONAL INFORMATION This test was developed and its performance characteristics determined by [facility] in a manner consistent with CLIA requirements. This test has not been cleared or approved by the U.S. Food and Drug Administration. Test Performed by: [facility] [place] [address] [place] [address] Cement Kiln Operator: Sindi Archibald Ph.D.; CLIA# [id number] Blood Venous blood / Unknown Venipuncture / Unknown 05/13/2025 6:48 AM EDT 05/13/2025 6:48 AM EDT Pauline Christensen MD LAB BLOOD ORDERABLES Final Resu lt Performing Organization Address [facility] Co de Phone Number [facility] [address] [place] [address], [place] * Folate Serum (05/13/2025 6:48 AM EDT) FOLIC ACID >25.0 >5.8 ng/mL 05/13/2025 2:14 PM EDT [facility] Blood Venous blood / Unknown Venipuncture / Unknown 05/13/2025 6:48 AM EDT 05/13/2025 6:48 AM EDT Pauline Christensen MD LAB BLOOD ORDERABLES Final Resu lt [facility] [address] [place] [address], [place] [phone] * Vitamin B6 Profile (PLP and PA), P (05/13/2025 6:48 AM EDT) PYRIDOXIC ACID (PA), P 6 3 - 30 mcg/L 05/16/2025 4:16 PM EDT [facility] Comment: ADDITIONAL INFORMATION This test was developed and its performance characteristics determined by [facility] in a manner consistent with CLIA requirements. This test has not been cleared or approved by the U.S. Food and Drug Administration. Test Performed by: [facility] - [address] [address] Cement Kiln Operator: Sindi Archibald Ph.D.; CLIA# [id number] PYRIDOXAL 5-PHOSPHATE (PLP), P 10 5 - 50 mcg/L 05/16/2025 4:16 PM EDT [facility] Comment: ADDITIONAL INFORMATION This test was developed and its performance characteristics determined by [facility] in a manner consistent with CLIA requirements. This test has not been cleared or approved by the U.S. Food and Drug Administration. Blood Venous blood / Unknown Venipuncture / Unknown 05/13/2025 6:48 AM EDT 05/13/2025 6:48 AM EDT us Pauline Christensen MD LAB BLOOD ORDERABLES Final Resu lt [facility] [address] [place] [address], * Vitamin B12 (05/13/2025 6:48 AM EDT) VITAMIN B12 214 180 - 914 pg/mL 05/13/2025 2:15 PM EDT [facility] Blood Venous blood / Unknown Venipuncture / Unknown 05/13/2025 6:48 AM EDT 05/13/2025 6:48 AM EDT us Pauline Christensen MD LAB BLOOD ORDERABLES Final Resu lt [facility] [address] [place] [address], [place] [phone] * Thyroid Stimulating Hormone (TSH) (05/13/2025 6:48 AM EDT) TSH 3.16 0.49 - 4.67 uIU/mL 05/13/2025 2:03 PM EDT [facility] Blood Venous blood / Unknown Venipuncture / Unknown 05/13/2025 6:48 AM EDT 05/13/2025 6:48 AM EDT Pauline Christensen MD LAB BLOOD ORDERABLES Final Resu lt Performing Organization Address City/[facility]/ZIP Co de Phone Number [facility] [address] [facility] [address] [place] [address], [place] [phone] * Hemoglobin A1c (05/13/2025 6:48 AM EDT) Pathologist [facility] HEMOGLOBIN A1C 5.2 4.4 - 5.6 % 05/13/2025 10:21 AM EDT [facility] Comment: ADA Guidelines Result HgbA1c Normal : less than 5.7 % Prediabetes : 5.7 % to 6.4 % Diabetes : > 6.4 % Use with caution in patients with abnormal hemoglobin variants as the half-life of red blood cells and in vivo glycation rates are affected. EST. AVERAGE GLUCOSE 103 mg/dL 05/13/2025 10:21 AM EDT [facility] Blood Venous blood / Unknown Venipuncture / Unknown 05/13/2025 6:48 AM EDT 05/13/2025 6:48 AM EDT us Pauline Christensen MD LAB BLOOD ORDERABLES Final Resu lt [facility] [address] [place] [address], documented in this encounter Visit Diagnoses Diagnosis Neuropathy- Primary Mononeuritis of unspecified site documented in this encounter Additional Health Concerns Assessment Noted Time PHQ-9 Depression Total Score: 0 10/23/20 23 1:26 PM EST documented as of this encounter Care Teams Metal Moulder'S Assistant Relationship Specialty Start Date End Date Eliceo Gómez Jr., DO [address] [facility], [address] [place] [address] PCP - General Family Medicine 12/11/19 Jenna Butler [address] Consulting Physician Behavioral Health 12/20/23 documented as of this encounter
--- OUTSIDE RECORDS SUMMARY | 2025-05-19 08:01 | XMS_ITS | Encounter Summary ---
Author Organization [facility] Address [address] [place] [address] Care Team Providers Care Splicing Technician Name Role Phone Eliceo Gómez DO Primary Care Provider [phone] Eliceo Gómez DO Unavailable [phone] Juan Damico DO Unavailable [phone] Reason for Visit * Reason Comments Med Refill Encounter Details Date Type Department Care Team (Late st Contact Info) Description 05/10/2025 Refill [facility] [address] [facility] [address] [place] [address] Eliceo Gómez DO [address] [facility] [address] [place] [address] Hypertension, unspecified type Social History Tobacco Use Types Packs/Day Years [...] Recorded Patient Health Questionnaire-2 Score 0 01/20/2025 [facility] of Occupat ional Health - Occupational Stress [...] Office Visit [facility] [address] [place] [address] Nelsy Harirs, LASTING ROOM SUPERVISOR-SUPERVISOR FISH HATCHERY [address] [place] [address] documented as of this encounter Visit Diagnoses Diagnosis Hypertension, unspecified type documented in this encounter Additional Health Concerns Assessment Noted Time PHQ-9 Depression Total Score: 0 01/21/20 25 1:00 PM EDT documented as of this encounter Care Teams Splicing Technician Relationship Specialty Start Date End Date Eliceo Gómez DO [address] [place] [address] PCP - General Family Medicine 04/04/23 Eliceo Gómez DO [address] [place] [address] PCP - [facility] 05/06/2310/05 Juan Damico DO [address] [place] [address] Referring Physician Obstetrics and Gynecology 05/20/24 documented as of this encounter
--- OUTSIDE RECORDS SUMMARY | 2025-05-19 08:01 | XMS_ITS | Encounter Summary ---
Author Organization [facility] Address [address] [place] [address] Care Team Providers Care Cutter Woodwind Reeds Name Role Phone Eliceo Gómez DO Primary Care Provider [phone] Eliceo Gómez DO Unavailable [phone] Juan Damico DO Unavailable [phone] Encounter Details Date Type Department Care Team [...] Recorded Patient Health Questionnaire-2 Score 0 07/11/2024 [facility] of Occupat ional Health - Occupational [...] any time in the past 12 m [facility], were you homeless or living [...] DERM [address] [place] [address] Nelsy Harris APRN-PRIMING MACHINE OPERATOR [address] [place] [address] documented as of this encounter Procedures Procedure Name Priority Date/Time Associated Diagnosis Comments XR THORACIC SPINE 2 VIEWS 07/13/2024 8:07 AM EDT documented in this encounter Results * XR thoracic spine 2 views (07/13/2024 8:07 AM EDT) Anatomical Region Laterality Modality Spine, T-spine Radiographic Ira ging 07/13/2024 8:07 AM EDT Narrative 07/13/2024 8:[place] [address] XRay Report Signed Patient: MARY FUENTES MR#: [id number] : 1970 Acct:[id number] Age/Sex: 54 / F ADM Date: 07/12/24 Loc: [facility] Attending Dr: Jess Black NP Ordering Physician: Jess Black NP Date of Service: 07/12/24 Procedure(s): XR thoracic spine 2V Accession Number(s): [id number] cc: Jess Black NP; Isatu GÓMEZ [place] [address] Patient Name: MARY FUENTES MRN: [id number] date: 1970 Sex: F Assigned Patient Location: [facility] Current Patient Location: Accession/Order Number: [id number] Exam Date: 07/12/2024 10:50 Report Date: 07/13/2024 [...] M.D. Signed By: 07/13/24808 DD/ 6 TD/TT: Sign Painter Helper: Procedure Note Radiology, Radiologist, - 07/13/2024 [place] [address] XRay Report Signed Patient: MARY FUENTES DMR#: [id number] : 1970Acct:[id number] Age/Sex: 54 / FADM Date: 07/12/24 Loc: RAD Attending Dr: Jess Black NP Ordering Physician: Jess Black NP Date of Service: 07/12/24 Procedure(s): XR thoracic spine 2V Accession Number(s): [id number] cc: Jess Black NP; Isatu GÓMEZ [address] [place] [address] Patient Name: MARY FUENTES MRN: [id number] date: 1970 Sex: F Assigned Patient Location: [facility] Current Patient Location: Accession/Order Number: [id number] Exam Date: 07/12/2024 10:50 Report Date: 07/13/2024 [...] Oliveros M.D. Signed By:07/13/24808 DD/ 0807 TD/TT: Sign Painter Helper: us Generic External Data Provider IMG XR PROCEDURES Final Result documented in this encounter Visit Diagnoses Not on filedocumented in this encounter Care Teams Cutter Woodwind Reeds Relationship Specialty Start Date End Date Eliceo Gómez DO [address] [place] [address] PCP - General Family Medicine 04/04/23 Eliceo Gómez DO [address] [place] [address] PCP - [facility] 05/06/2310/05 Juan Damico DO [address] [place] [address] Referring Physician Obstetrics and Gynecology 05/20/24 documented as of this encounter
--- OUTSIDE RECORDS SUMMARY | 2025-05-19 08:01 | XMS_ITS | Encounter Summary ---
Author Organization [facility] Address [id number] [address] [place] [address] Care Team Providers Care Installer Apprentice Name Role Phone Dalia Morales DO, George R Primary Care Provider + Reason for Visit * Reason Comments Med Refill Encounter Details Date Type Department Care Team (Late st Contact Info) Description 01/09/2021 Refill [facility] [address] [place] [address] Pauline Christensen MD [address] [place] [address], [facility] [address] [place] [address] Chronic mixed headache syndrome Social [...] Description 06/06/2025 9:00 AM EDT Office Visit [facility], A Department of [address] [phone] Vicki Roche DO [address] [place] [address], [address] [place] [address] Noman Mayo MD [address] [place] [address] [address] [place] [address] 08/19/2025 3:30 PM EDT Office Visit [facility], Department of [address] [place] [address] Pauline Christensen MD [address] [place] [address] [address], [address] [place] [address] documented as of this encounter Visit Diagnoses Diagnosis Chronic mixed headache syndrome Other headache syndromes documented in this encounter Care Teams Installer Apprentice Relationship Specialty Start Date End Date Eliceo Gómez Jr., [address] [facility], [address], [place] [address] PCP - General Family Medicine 12/11/19 Jenna Butler [address] [place] [address] Consulting Physician Behavioral Health 12/20/23 documented as of this encounter
--- OUTSIDE RECORDS SUMMARY | 2025-05-19 08:01 | XMS_ITS | Encounter Summary ---
Author Organization [facility] Address [address] [facility] [place] [address] Care Team Providers Care Inventory Coordinator Name Role Phone Eliceo Gómez DO Primary Care Provider [phone] Eliceo Gómez DO Unavailable [phone] Juan Damico DO Unavailable [phone] Encounter Details Date Type Department Care Team (Late st Contact Info) Description 08/28/2024 Abstract [facility] [address] [facility] [address] [place] [address] Eliceo Gómez DO [address] [facility] [address] [place] [address] Social History Tobacco Use Types Packs/Day Years [...] [facility] Health - Occupational [...] in the past 12 m [facility], were you homeless or [...] DERM [address] [place] [address] Nelsy Harris, COOKER MECHANIC-ANGLE FURNACEMAN [address] [place] [address] documented as of this encounter Visit Diagnoses Not on filedocumented in this encounter Care Teams Inventory Coordinator Relationship Specialty Start Date End Date Eliceo Gómez, DO [address] [place] [address] PCP - General Family Medicine 04/04/23 Eliceo Gómez, DO [address] [place] [address] PCP - [facility] 05/06/2310/05 Juan Damico, DO [address] [place] [address] Referring Physician Obstetrics and Gynecology 05/20/24 documented as of this encounter
--- OUTSIDE RECORDS SUMMARY | 2025-05-19 08:01 | XMS_ITS | Clinical Summary ---
Author Organization [employer] tem Address [id number] [address] [place] [address] Care Team Providers Care Toys And Games Hand Finisher Name Role Phone Dalia Morales DO, George R Primary Care Provider + Allergies Active Allergy [...] Encounters Date Type Department Care Team Description 05/12/2025 Travel 05/07/2025 Telephone [facility], A Department of [facility] [address] [facility] [address] [place] [address] Savanah Beyer Worsening Symptoms 04/21/2025 Refill [facility] [address] [place] [address] Pauline Christensen MD Other migraine [...] Description 06/06/2025 9:00 AM EDT Office Visit [facility], A Department of [address] [address] Vicki Roche, DO [address] [facility], [address] [place] [address] Noman Mayo MD [address] [facility] [place] [address] 08/19/2025 3:30 PM EDT Office Visit [facility], A Department of [address], [address] [place] [address] Pauline Christensen MD [address] [place] [address] [address], [address] [place] [address] Health Maintenance Due Date Last Done Comments Zoster (Shingles) Vaccine (2 of 2) 05/31/2024 04/05/2024 COVID-19 Vaccine (2023-2 5 season) 2024 11/24/2021, 05/11/2021, 04/20/2021 Depression Screening 10/23/2024 10/23/2023 Adult BMI Screening 01/09/2025 01/10/2024 Tobacco Screening 01/09/2025 01/10/2024 Influenza Vaccine 07/07/2025 12/11/2024, , 12/21/2023, Additional history exists DTaP,Tdap and Td Vaccines (2 - Td or Tdap) 06/22/2030 06/22/2020 Medical Devices Implanted Type Area Yacht Builder Device Identifier Shelf Expiration Date Model / Serial / Lot Generator Nrs - [id number] Implanted:Qty: 1 on 01/02/2024 by Cullen Dawkins MD at [facility] Generator Right: Neck [employer] 09/20/2026 [id number] / [id number] / Lead Ns [facility] - [id number] Implanted:Qty: 1 on 01/02/2024 by Cullen Dawkins MD at [facility] Implant Lead Right: Neck [employer] 10/20/2026 4340 / [id number] / Lead Nrstm Inspr 3 Elect Cuf Tnl Boni Strl Lf - [id number] - [id number] Implanted:Qty: 1 on 01/02/2024 by Cullen Dawkins MD at [facility] Neuro Stimulator Right: Neck [employer] 07/19/2026 [id number] / [id number] / Procedures Procedure Name Priority Date/Time Associated Diagnosis Comments PROTEIN ELECTROPHORESIS, URINE Routine 05/14/2025 5:00 AM EDT Neuropathy THIAMIN (VITAMIN B1), WB Routine 05/13/2025 6:48 AM EDT Neuropathy PROTEIN ELECTROPHORESIS, SERUM Routine 05/13/2025 6:48 AM EDT Neuropathy HEAVY METALS SCRN WITH DEMOGRAPHICS Routine 05/13/2025 6:48 AM EDT Neuropathy COPPER, S Routine 05/13/2025 6:48 AM EDT Neuropathy FOLATE Routine 05/13/2025 6:48 AM EDT Neuropathy VITAMIN B6 PROFILE (PLP AND PA), P Routine 05/13/2025 6:48 AM EDT Neuropathy VITAMIN B12 Routine 05/13/2025 6:48 AM EDT Neuropathy TSH Routine 05/13/2025 6:48 AM EDT Neuropathy HEMOGLOBIN A1C Routine 05/13/2025 6:48 AM EDT Neuropathy from Last 3 Months Results * Protein electrophoresis, urine (05/14/2025 5:00 AM EDT) Urine Protein Electrophoresis Interp Unremarkable protein distribution, no monoclonal bands 05/16/2025 5:14 PM EDT [facility] Urine Collection / Unknown 05/14/2025 5:00 AM EDT 05/14/2025 7:04 AM EDT us Pauline Christensen MD URINE ORDERABLES Final Result [facility] [address] [place] [address], [place] [phone] * Heavy Metals Scrn with Demographics (05/13/2025 6:48 AM EDT) HEAVY METAL VENOUS/CAPILLARY Venous 05/14/2025 2:29 PM EDT [facility] ARSENIC, B <1 <13 ng/mL 05/14/2025 2:29 PM EDT [facility] Comment: ADDITIONAL INFORMATION This test was developed and its performance characteristics determined by [facility] in a manner consistent with CLIA requirements. This test has not been cleared or approved by the U.S. Food and Drug Administration. CADMIUM, B <0.2 <5.0 ng/mL 05/14/2025 2:29 PM EDT [facility] Comment: ADDITIONAL INFORMATION This test was developed and its performance characteristics determined by [facility] in a manner consistent with CLIA requirements. This test has not been cleared or approved by the U.S. Food and Drug Administration. MERCURY, B <1 <10 ng/mL 05/14/2025 2:29 PM EDT [facility] Comment: ADDITIONAL INFORMATION This test was developed and its performance characteristics determined by [facility] in a manner consistent with CLIA requirements. This test has not been cleared or approved by the U.S. Food and Drug Administration. LEAD, B <1.0 <3.5 mcg/dL 05/14/2025 2:29 PM EDT [facility] Comment: ADDITIONAL INFORMATION Testing performed by [facility] [...] MD LAB BLOOD ORDERABLES Final Resu lt [facility] [address] [place] [address], * Vitamin B6 Profile (PLP and PA), P (05/13/2025 6:48 AM EDT) PYRIDOXIC ACID (PA), P 6 3 - 30 mcg/L 05/16/2025 4:16 PM EDT [facility] Comment: ADDITIONAL INFORMATION This test was developed and its performance characteristics determined by [facility] in a manner consistent with CLIA requirements. This test has not been cleared or approved by the U.S. Food and Drug Administration. Test Performed by: [facility] [employer] [facility] [address] [place] [address] Rn Anesthesiology: Sindi Archibald Ph.D.; CLIA# [id number] PYRIDOXAL 5-PHOSPHATE (PLP), P 10 5 - 50 mcg/L 05/16/2025 4:16 PM EDT [facility] Comment: ADDITIONAL INFORMATION This test was developed and its performance characteristics determined by [facility] in a manner consistent with CLIA requirements. This test has not been cleared or approved by the U.S. Food and Drug Administration. Blood Venous blood / Unknown Venipuncture / Unknown 05/13/2025 6:48 AM EDT 05/13/2025 6:48 AM EDT us Pauline Christensen MD LAB BLOOD ORDERABLES [facility] Performing Organization Address [facility] de Phone Number [facility] [address] [place] [address], [place] * Thiamin (Vitamin B1), WB (05/13/2025 6:48 AM EDT) THIAMIN (VITAMIN B1), WB 114 70 - 180 nmol/L 05/15/2025 12:50 PM EDT [facility] Comment: ADDITIONAL INFORMATION This test was developed and its performance characteristics determined by [facility] in a manner consistent with CLIA requirements. This test has not been cleared or approved by the U.S. Food and Drug Administration. Test Performed by: [facility] [address] [place] [address] Rn Anesthesiology: Sindi Archibald Ph.D.; CLIA# [id number] Blood Venous blood / Unknown Venipuncture / Unknown 05/13/2025 6:48 AM EDT 05/13/2025 6:48 AM EDT us Pauline Christensen MD LAB BLOOD ORDERABLES Final [facility] Performing Organization Address [facility] de Phone Number [facility] [address] [place] [address], [place] * Copper, S (05/13/2025 6:48 AM EDT) COPPER 110 77 - 206 mcg/dL 05/14/2025 2:13 PM EDT [facility] Comment: ADDITIONAL INFORMATION This test was developed and its performance characteristics determined by [facility] in a manner consistent with CLIA requirements. This test has not been cleared or approved by the U.S. Food and Drug Administration. Test Performed by: [facility] [address] [place] [address] Rn Anesthesiology: Sindi Archibald Ph.D.; CLIA# [id number] Blood Venous blood / Unknown Venipuncture / Unknown 05/13/2025 6:48 AM EDT 05/13/2025 6:48 AM EDT Pauline Christensen MD LAB BLOOD ORDERABLES Final Resu lt [facility] [address] [place] [address], * Thyroid Stimulating Hormone (TSH) (05/13/2025 6:48 AM EDT) Pathologist [facility] TSH 3.16 0.49 - 4.67 uIU/mL 05/13/2025 2:03 PM EDT [facility] Blood Venous blood / Unknown Venipuncture / Unknown 05/13/2025 6:48 AM EDT 05/13/2025 6:48 AM EDT Pauline Christensen MD LAB BLOOD ORDERABLES Final Resu lt [facility] [address] [place] [address], [place] [phone] * Protein electrophoresis, serum (05/13/2025 6:48 AM EDT) TOTAL PROTEIN 6.2 6.0 - 8.0 g/dL 05/14/2025 9:57 AM EDT [facility] ALPHA 1 GLOBULIN 0.3 0.1 - 0.4 g/dL 05/14/2025 9:57 AM EDT [facility] ALPHA 2 GLOBULIN 0.6 0.4 - 1.1 g/dL 05/14/2025 9:57 AM EDT [facility] BETA GLOBULIN 0.8 0.5 - 1.2 g/dL 05/14/2025 9:57 AM EDT [facility] GAMMA GLOBULIN 0.7 0.5 - 1.6 g/dL 05/14/2025 9:57 AM EDT [facility] Protein Electrophoresis Interp Unremarkable protein distribution, no monoclonal bands 05/14/2025 9:57 AM EDT [facility] Albumin 3.9 3.4 - 5.3 g/dL 05/14/2025 9:57 AM EDT [facility] Blood Venous blood / Unknown Venipuncture / Unknown 05/13/2025 6:48 AM EDT 05/13/2025 6:48 AM EDT Pauline Christensen MD LAB BLOOD ORDERABLES Final Resu lt [facility] [address] [place] [id number], [place] [phone] * Hemoglobin A1c (05/13/2025 6:48 AM EDT) HEMOGLOBIN A1C 5.2 4.4 - 5.6 % 05/13/2025 10:21 AM EDT [facility] Comment: ADA Guidelines Result HgbA1c Normal : less than 5.7 % Prediabetes : 5.7 % to 6.4 % Diabetes : > 6.4 % Use with caution in patients with abnormal hemoglobin variants as the half-life of red blood cells and in vivo glycation rates are affected. EST. AVERAGE GLUCOSE 103 mg/dL 05/13/2025 10:21 AM EDT [facility] Blood Venous blood / Unknown Venipuncture / Unknown 05/13/2025 6:48 AM EDT 05/13/2025 6:48 AM EDT us Pauline Christensen MD LAB BLOOD ORDERABLES Final Resu lt [facility] [address] [place] [address], [place] [phone] * Folate Serum (05/13/2025 6:48 AM EDT) FOLIC ACID >25.0 >5.8 ng/mL 05/13/2025 2:14 PM EDT [facility] Blood Venous blood / Unknown Venipuncture / Unknown 05/13/2025 6:48 AM EDT 05/13/2025 6:48 AM EDT Pauline Christensen MD LAB BLOOD ORDERABLES Final Resu lt [facility] [address] [address] [place] [address], * Vitamin B12 (05/13/2025 6:48 AM EDT) VITAMIN B12 214 180 - 914 pg/mL 05/13/2025 2:15 PM EDT [facility] Blood Venous blood / Unknown Venipuncture / Unknown 05/13/2025 6:48 AM EDT 05/13/2025 6:48 AM EDT Pauline Christensen MD LAB BLOOD ORDERABLES Final Resu lt [facility] [address] [facility] [address] [place] [address], from Last 3 Months Insurance MEDICAID [place] [employer] MEDICARE Care Teams Toys And Games Hand Finisher Relationship Specialty Start Date End Date Eliceo Gómez Jr., DO [address] [facility], [id number] [place] [address] PCP - General Family Medicine 12/11/19 Jenna Butler [address] Consulting Physician Behavioral Health 12/20/23
--- OUTSIDE RECORDS SUMMARY | 2025-05-19 08:01 | XMS_ITS | Encounter Summary ---
Author Organization [facility] Address [address] [facility] [place] [address] Care Team Providers Care Dock Pumper Name Role Phone Eliceo Gómez DO Primary Care Provider [phone] Eliceo Gómez DO Unavailable [phone] Juan Damico DO Unavailable [phone] Encounter Details Date Type Department Care Team (Late st Contact Info) Description 08/05/2024 Abstract [facility] [address] [facility] [address] [place] [address] Eliceo Gómez DO [address] [facility] [address] [place] [address] Social History Tobacco Use Types Packs/Day Years [...] you attend chur or christian services? Never 05/01/2024 Do you belong to [...] Score 0 07/11/2024 [facility] - Occupational Stress [...] any time in the past 12 m [facility], were you homeless or living in [...] DERM [address] [place] [address] Nelsy Harris, LABORER AQUATIC LIFE-INSURANCE ADVISER [address] [place] [address] documented as of this encounter Visit Diagnoses Not on filedocumented in this encounter Care Teams Dock Pumper Relationship Specialty Start Date End Date Eliceo Gómez, DO [address] [place] [address] PCP - General Family Medicine 04/04/23 Eliceo Gómez, DO [address] [place] [address] PCP - [facility] 05/06/2310/05 Juan Damico, DO [address] [place] [address] Referring Physician Obstetrics and Gynecology 05/20/24 documented as of this encounter
--- OUTSIDE RECORDS SUMMARY | 2025-05-19 08:01 | XMS_ITS | Encounter Summary ---
Author Organization [facility] Address [address] [place] [address] Care Team Providers Care Printing Shop Supervisor Name Role Phone Eliceo Gómez DO Primary Care Provider [phone] Eliceo Gómez DO Unavailable [phone] Juan Damico DO Unavailable [phone] Encounter Details Date Type Department Care Team [...] Recorded Patient Health Questionnaire-2 Score 0 07/11/2024 [facility] ional [facility] - [...] DERM [address] [place] [address] Nelsy Harris APRN-SOAPING DEPARTMENT SUPERVISOR [address] [place] [address] documented as of this encounter Procedures Procedure Name Priority Date/Time Associated Diagnosis Comments XR FOOT RT MIN 3V 08/01/2024 5:0 1 AM EDT documented in this encounter Results * XR FOOT RT MIN 3V (08/01/2024 5:01 AM EDT) Anatomical Region Laterality Modality Other 08/01/2024 5:01 AM EDT Narrative 08/01/2024 5:04 [place] [address] XRay Report Signed Patient: ELSIE FUENTES MR#: [id number] : 1970 Acct:[id number] Age/Sex: 54 / F ADM Date: 07/30/24 Loc: EC Attending Dr: Sade Felix D.P.M. Ordering Physician: Sade Felix D.P.M. Date of Service: 07/30/24 Procedure(s): XR foot RT min 3V Accession Number(s): [id number] cc: Sade Felix D.P.M.; Isatu GÓMEZ [place] [address] Patient Name: ELSIE FUENTES MRN: [id number] date: 1970 Sex: F Assigned Patient Location: Current Patient Location: Accession/Order Number: [id number] Exam Date: 07/30/2024 09:46 Report Date: 08/01/2024 [...] M.D. Signed By: 08/01/24503 DD/ 0 TD/TT: Library Science Professor: Procedure Note Radiology, Radiologist, MD - 08/01/2024 [place] [address] XRay Report Signed Patient: ELSIE FUENTES DMR#: [id number] : 1970Acct:[id number] Age/Sex: 54 / FADM Date: 07/30/24 Loc: EC Attending Dr: Sade Felix D.P.M. Ordering Physician: Sade Felix D.P.M. Date of Service: 07/30/24 Procedure(s): XR foot RT min 3V Accession Number(s): [id number] cc: Sade Felix D.P.M.; Isatu GÓMEZ [place] [address] Patient Name: ELSIE FUENTES MRN: [id number] date: 1970 Sex: F Assigned Patient Location: Current Patient Location: Accession/Order Number: [id number] Exam Date: 07/30/2024 09:46 Report Date: 08/01/2024 [...] M.D. Signed By:08/01/24 0504 DD/ 050 TD/TT: Library Science Professor: us Generic External Data Provider [facility] Final Result documented in this encounter Visit Diagnoses Not on filedocumented in this encounter Care Teams Printing Shop Supervisor Relationship Specialty Start Date End Date Eliceo Gómez DO [address] [place] [address] PCP - General Family Medicine 04/04/23 Eliceo Gómez DO [address] [place] [address] PCP - [facility] 05/06/2310/05 Juan Damico DO [address] [place] [address] Referring Physician Obstetrics and Gynecology 05/20/24 documented as of this encounter
--- OUTSIDE RECORDS SUMMARY | 2025-05-19 08:01 | XMS_ITS | Encounter Summary ---
Author Organization [employer] Address [id number] [address] [place] [address] Care Team Providers Care Trim Mounter Name Role Phone Dalia Morales DO, George R Primary Care Provider + Reason for Visit * Reason Comments Med Refill Encounter Details Date Type Department Care Team (Late st Contact Info) Description 10/19/2020 Refill [facility] [address] [place] [address] Pauline Christensen MD [address] [place] [address], [facility] [address], [address], [address] [place] [address] Chronic mixed headache syndrome Social [...] 10/19/2020 4:15 PM EST RN sent a [employer] message to patient (a modality with which she frequently communicates with this office) to inquire if the indomethacin is still helping. RN will update the refill request when response received. Jessi Franklin RN 10/20/20 3376 * Telephone Encounter - Jessi Franklin RN - 10/19/2020 4:15 PM EST Patient responded to [employer] message as below: It helps some days. But not all the time. Is it time for a change maybe? Please advise, and thank you. Jessi Franklin RN 10/20/20 0974 * Telephone Encounter - Pauline Christensen MD [...] Linda in mid- September. RN asked in [employer] message if she is still taking Dayvigo. [...] EST Re[facility] states that both the scriptsfor [...] is taking it. RN called [facility] at number below. RN spoke with pharmacist [...] unable. Thank you. Jessi Franklin RN 12/23/20 1653 documented in this encounter Plan of Treatment Upcoming Encounters Date Type Department Care Team (Late st Contact Info) Description 06/06/2025 9:00 AM EDT [facility] Visit [facility], [facility] Department of [address] [place] [address] Vicki Roche, DO [address] [facility], [address] [place] [address] Noman Mayo MD [address] [facility] [address] [place] [address] 08/19/2025 3:30 PM EDT Office Visit [facility], A Department of [facility] [address], [address] [place] [address] Pauline Christensen MD [address] [place] [address] 101, [address] [place] [address] documented as of this encounter Visit Diagnoses Diagnosis Chronic mixed headache syndrome Other headache syndromes documented in this encounter Care Teams Trim Mounter Relationship Specialty Start Date End Date Eliceo Gómez Jr., DO [address] [place] [address], [address], [place] [address] PCP - General Family Medicine 12/11/19 Jenna Butler [address] Consulting Physician Behavioral Health 12/20/23 documented as of this encounter
--- OUTSIDE RECORDS SUMMARY | 2025-05-19 08:01 | XMS_ITS | Encounter Summary ---
Author Organization [facility] Address [address] [place] [address] Care Team Providers Care Truck Technician Name Role Phone Eliceo Gómez DO Primary Care Provider [phone] Eliceo Gómez DO Unavailable [phone] Beata Hernandez Unavailable Juan Damico DO Unavailable [phone] Encounter Details Date Type Department Care Team (Late st Contact Info) Description 01/11/2024 Abstract [facility] FM [address] [facility] [address] [place] [address] Eliceo Gómez, DO [address] [facility] [address] [place] [address] Social History Tobacco Use Types Packs/Day Years [...] How often do you attend chur or yazidism services? Never 04/14/2023 Do you belong to [...] Recorded Patient Health Questionnaire-2 Score 0 10/03/2023 [facility] of Occupat ional Health - Occupational [...] DERM [address] [place] [address] Nelsy Harris, SUPERVISOR FUNCTIONAL TESTING-NEON LIGHT INSTALLER [address] [place], [place] [address] documented as of this encounter Visit Diagnoses Not on filedocumented in this encounter Care Teams Truck Technician Relationship Specialty Start Date End Date Eliceo Gómez DO [address] [place] [address] PCP - General Family Medicine 04/04/23 Eliceo Gómez DO [address] [place] [address] [facility] 05/06/2310/05 Beata Hernandez PA [address] [place] [address] Dietitian Nutrition 08/08/23 05/16/24 Juan Damico, [address] [place] [address] Referring Physician Obstetrics and Gynecology 05/20/24 documented as of this encounter
--- OUTSIDE RECORDS SUMMARY | 2025-05-19 08:01 | XMS_ITS | Encounter Summary ---
Author Organization [employer] Address [id number] [address] [place] [address] Care Team Providers Care Professor Of German Name Role Phone Dalia Morales DO, George R Primary Care Provider + Reason for Visit * Reason Onset Date Comments Med Refill 11/04/2020 Encounter Details Date Type Department Care Team (Late st Contact Info) Description 11/04/2020 Refill [facility] [address] [place] [address] Demi Machado Chronic mixed headache syndrome (Primary [...] daily. Please send med refill script to [facility] [place] in [place] on [address] [facility] per patient's chart/request. Please call back and advise, callback#: [phone]. * Telephone Encounter - Jessi Franklin RN - 11/04/2020 11:41 AM EST Looks like script was pended/routed on 10/21/2020 per refill encounter dated 10/19/2020- not sure what happened to it after that. Indomethacin 75 mg BID script pended and re-routed to provider for approval and signature. Jessi Franklin RN 11/04/20 7016 documented in this encounter Plan of Treatment Upcoming Encounters Date Type Department Care Team (Late st Contact Info) Description 06/06/2025 9:00 AM EDT Office Visit [facility], A Department of [address] [place] [address] Vicki Roche DO [address] [facility], [address] [place] [address] Noman Mayo MD [address] [facility] [place] [address] 08/19/2025 3:30 PM EDT Office Visit [facility], A Department of [facility] [address] [place] [address] Pauline Christensen MD [address] [facility] [address] [place] [address] documented as of this encounter Visit Diagnoses Diagnosis Chronic mixed headache syndrome- Primary Other headache syndromes documented in this encounter Care Teams Professor Of German Relationship Specialty Start Date End Date Eliceo Gómez Jr., [address] [place] [address], [address], [place] [address] PCP - General Family Medicine 12/11/19 Jenna Butler [address] [place] [address] Consulting Physician Behavioral Health 12/20/23 documented as of this encounter
--- OUTSIDE RECORDS SUMMARY | 2025-05-19 08:01 | XMS_ITS | Encounter Summary ---
Author Organization [facility] Address [address] [place] [address] Care Team Providers Care Gun Striper Name Role Phone Eliceo Gómez DO Primary Care Provider [phone] Eliceo Gómez DO Unavailable [phone] Beata Hernandez Unavailable Juan Damico DO Unavailable [phone] Encounter Details Date Type Department Care Team (Late st Contact Info) Description 11/24/2023 Abstract [facility] FM [address] [facility] [address] [place] [address] Eliceo Gómez, DO [address] [facility] 230 [place] [address] Social History Tobacco Use Types Packs/Day Years [...] How often do you attend chur or anabaptism services? Never 04/14/2023 Do you belong to [...] Patient Health Questionnaire-2 Score 0 10/03/2023 [facility] of Occupat ional Health [...] DERM [address] [place] [address] Nelsy Harris, LOADER DEMOLDER-METROLOGY MANAGER [address] [place], [place] [address] documented as of this encounter Visit Diagnoses Not on filedocumented in this encounter Care Teams Gun Striper Relationship Specialty Start Date End Date Eliceo Gómez DO [address] [place] [address] PCP - General Family Medicine 04/04/23 Eliceo Gómez DO [address] [place] [address] [facility] 05/06/2310/05 Beata Hernandez PA [address] [place] [address] Dietitian Nutrition 08/08/23 05/16/24 Juan Damico, [address] [place] [address] Referring Physician Obstetrics and Gynecology 05/20/24 documented as of this encounter
--- OUTSIDE RECORDS SUMMARY | 2025-05-19 08:01 | XMS_ITS | Encounter Summary ---
Author Organization [facility] Address [address] [facility] [place] [address] Care Team Providers Care Marketing Area Manager Name Role Phone Eliceo Gómez DO Primary Care Provider [phone] Eliceo Gómez DO Unavailable [phone] Juan Damico DO Unavailable [phone] Encounter Details Date Type Department Care Team (Late st Contact Info) Description 04/02/2025 Abstract [facility] FM [address] [facility] 230 [place] [address] Eliceo Gómez DO [address] [facility] 230 [place] [address] Social History Tobacco Use Types Packs/Day Years [...] Recorded Patient Health Questionnaire-2 Score 0 01/20/2025 [facility] of Occupat ionnh Health - Occupational Stress [...] [address] [place] [address] Nelsy Harris, MOBILE PATROL OFFICER-TRANSPORTATION MAINTENANCE SUPERVISOR [address] [place] [address] documented as of this encounter Visit Diagnoses Not on filedocumented in this encounter Additional Health Concerns Assessment Noted Time PHQ-9 Depression Total Score: 0 01/21/20 25 1:00 PM EDT documented as of this encounter Care Teams Marketing Area Manager Relationship Specialty Start Date End Date Eliceo Gómez DO [address] [place] [address] PCP - General Family Medicine 04/04/23 Eliceo Gómez DO [address] [place] [address] PCP - [facility] 05/06/2310/05 Juan Damico DO [address] [place] [address] Referring Physician Obstetrics and Gynecology 05/20/24 documented as of this encounter
--- OUTSIDE RECORDS SUMMARY | 2025-05-19 08:01 | XMS_ITS | Encounter Summary ---
Author Organization [facility] Address [address] [place] [address] Care Team Providers Care Biofuels Research Scientist Name Role Phone Eliceo Gómez DO Primary Care Provider [phone] Eliceo Gómez DO Unavailable [phone] Beata Hernandez Unavailable Juan Damico DO Unavailable [phone] Encounter Details Date Type Department Care Team (Late st Contact Info) Description 12/25/2023 Abstract [facility] FM [address] [facility] [address] [place] [address] Eliceo Gómez, DO [address] [facility] [address] [place] [address] Social History Tobacco Use Types Packs/Day Years [...] 0 10/03/2023 [facility] of Occupat ional Health - [...] DERM [address] [place] [address] Nelsy Harris, FINANCIAL SERVICES SALES REPRESENTATIVE-BOOM WORKER [address] [place], [place] [address] documented as of this encounter Visit Diagnoses Not on filedocumented in this encounter Care Teams Biofuels Research Scientist Relationship Specialty Start Date End Date Eliceo Gómez DO [address] [place] [address] PCP - General Family Medicine 04/04/23 Eliceo Gómez DO [address] [place] [address] [facility] 05/06/2310/05 Beata Hernandez PA [address] [place] [address] Dietitian Nutrition 08/08/23 05/16/24 Juan Damico, [address] [place] [address] Referring Physician Obstetrics and Gynecology 05/20/24 documented as of this encounter
--- OUTSIDE RECORDS SUMMARY | 2025-05-19 08:01 | XMS_ITS | Encounter Summary ---
Author Organization [facility] Address [address] [facility] [place] [address] Care Team Providers Care Spray Technician Name Role Phone Eliceo Gómez DO Primary Care Provider [phone] Eliceo Gómez DO Unavailable [phone] Juan Damico DO Unavailable Encounter Details Date Type Department Care Team (Late st Contact Info) Description 09/16/2024 Abstract [facility] FM [address] [facility] 230 [place] [address] Eliceo Gómez DO [address] [facility] 230 [place] [address] Social History Tobacco Use Types Packs/Day Years [...] 0 07/11/2024 [facility] of Occupat ionhi Health - Occupational Stress Questionnaire Answer Date [...] No 05/01/2024 Housing Stability Vital Sign Answer Meelcio e Recorded In the last 12 months, [...] any time in the past 12 m [facility], were you homeless or living [...] DERM [address] [place] [address] Nelsy Harris, BLOCK OPERATOR-FLOWER CHENILLER [address] [place] [address] documented as of this encounter Visit Diagnoses Not on filedocumented in this encounter Care Teams Spray Technician Relationship Specialty Start Date End Date Eliceo Gómez, DO [address] [place] [address] PCP - General Family Medicine 04/04/23 Eliceo Gómez, DO [address] [place] [address] PCP - [facility] 05/06/2310/05 Juan Damico, DO [address] [place] [address] Referring Physician Obstetrics and Gynecology 05/20/24 documented as of this encounter
--- OUTSIDE RECORDS SUMMARY | 2025-05-19 08:01 | XMS_ITS | Encounter Summary ---
Author Organization [facility] Address [address] [place] [address] Care Team Providers Care Multimedia Educational Specialist Name Role Phone Eliceo Gómez DO Primary Care Provider [phone] Eliceo Gómez DO Unavailable [phone] Beata Hernandez Unavailable Juan Damico DO Unavailable [phone] Encounter Details Date Type Department Care Team [...] often do you attend chur ch or druze services? Never 04/14/2023 Do you belong to [...] Recorded Patient Health Questionnaire-2 Score 0 10/03/2023 [employer] - Occupational Stress Questionnaire Answer Date [...] DERM [address] [place] [address] Nelsy Harris APRN-PLUMBER ASSISTANT [address] [place] [address] documented as of this encounter Procedures Procedure Name Priority Date/Time Associated Diagnosis Comments XR SACRUM COCCYX 2+ VIEWS 12/14/2023 1:52 PM EST documented in this encounter Results * XR sacrum coccyx 2+ views (12/14/2023 1:52 PM EST) Anatomical Region Laterality Modality Sacrum, Coccyx Radiographic Ira ging 12/14/2023 1:52 PM EST Narrative 12/14/2023 1:54 PM EST The [address] [address] XRay Report Signed Patient: MARY FUENTES MR#: [id number] : 1970 Acct:[id number] Age/Sex: 53 / F ADM Date: 12/14/23 Loc: [facility] Attending Dr: Ace Ahumada M.D. Ordering Physician: Ace Ahumada M.D. Date of Service: 12/14/23 Procedure(s): XR sacrum coccyx min 2V Accession Number(s): [id number] cc: Ace Ahumada M.D.; Isatu GÓMEZ [place] [address] Patient Name: MARY FUENTES MRN: [id number] date: 1970 Sex: F Assigned Patient Location: [facility] Current Patient Location: [facility] Accession/Order Number: [id number] Exam Date: 12/14/2023 13:00 Report Date: 12/14/2023 [...] Signed By: 12/14/23 1351 DD/ 1352 TD/TT: Medical Leader: Procedure Note Radiology, Radiologist, - 12/14/2023 [place] [address] XRay Report Signed Patient: MARY FUENTES DMR#: [id number] : 1970Acct:[id number] Age/Sex: 53 / FADM Date: 12/14/23 Loc: RAD Attending Dr: Ace Ahumada M.D. Ordering Physician: Ace Ahumada M.D. Date of Service: 12/14/23 Procedure(s): XR sacrum coccyx min 2V Accession Number(s): [id number] cc: Ace Ahumada M.D.; Isatu GÓMEZ [place] [address] Patient Name: MARY FUENTES MRN: [id number] date: 1970 Sex: F Assigned Patient Location: [facility] Current Patient Location: [facility] Accession/Order Number: [id number] Exam Date: 12/14/2023 13:00 Report Date: 12/14/2023 [...] Dictated By: Nicki Dacosta M.D. Signed By:12/14/23 1353 DD/ 1352 TD/TT: Medical Leader: us Generic External Data Provider IMG XR PROCEDURES Final Result documented in this encounter Visit Diagnoses Not on filedocumented in this encounter Care Teams Multimedia Educational Specialist Relationship Specialty Start Date End Date Eliceo Gómez DO [address] [place] [address] PCP - General Family Medicine 04/04/23 Eliceo Gómez DO [address] [place] [address] PCP - [facility] 05/06/2310/05 Beata Hernandez PA [address] [place] [address] Dietitian Nutrition 08/08/23 05/16/24 Juan Damico DO [address] [place] [address] Referring Physician Obstetrics and Gynecology 05/20/24 documented as of this encounter
--- OUTSIDE RECORDS SUMMARY | 2025-05-19 08:01 | XMS_ITS | Encounter Summary ---
Author Organization [id number] [address] [place] [address] Care Team Providers Care Astronomy Instructor Name Role Phone Dalia Morales DO, George R Primary Care Provider + Reason for Visit * Reason Onset Date Comments Med Refill 10/29/2020 Encounter Details Date Type Department Care Team (Late st Contact Info) Description 10/29/2020 Telephone [facility] Physicians [facility] [address] [place] [phone] Guera Benson CNA Med Refill Social History [...] Miscellaneous Notes * Telephone Encounter - Guera Benson CNA - 10/29/2020 9:58 AM EST Amitiza samples and Trulance samples given to patient per Sharon Benson CNA 10/29/20 0959 documented in this encounter Plan of Treatment Upcoming Encounters Date Type Department Care Team (Late st Contact Info) Description 06/06/2025 9:00 AM EDT Office Visit [facility], A Department of [address] [place] [address] Vicki Roche, [address] [place] [address], [address] [place] [address] [place] [address] [place] [address], [address] [place], [place] [address] 08/19/2025 3:30 PM EDT Office Visit [facility] Neurology, Department of [address], [address] [place] [phone] Pauline Christensen MD [address] [place] [address] 101, 102, [address] [place] [phone] documented as of this encounter Visit Diagnoses Not on filedocumented in this encounter Care Teams Astronomy Instructor Relationship Specialty Start Date End Date Eliceo Gómez Jr., [address] [place] [address], [address] [place] [address] PCP - General Family Medicine 12/11/19 Jenna Butler [address] Consulting Physician Behavioral Health 12/20/23 documented as of this encounter
--- OUTSIDE RECORDS SUMMARY | 2025-05-19 08:01 | XMS_ITS | Encounter Summary ---
Author Organization [facility] Address [address] [place] [address] Care Team Providers Care Oracle Adf Consultant Name Role Phone Eliceo Gómez DO Primary Care Provider [phone] Eliceo Gómez DO Unavailable [phone] Beata Hernandez Unavailable Juan Damico DO Unavailable [phone] Encounter Details Date Type Department Care Team [...] Recorded Patient Health Questionnaire-2 Score 0 10/03/2023 [facility] - Occupational Stress Questionnaire [...] DERM [address] [place] [address] Nelsy Harris APRN-TIMBER TREATMENT PLANT OPERATOR [address] [place] [address] documented as of this encounter Procedures Procedure Name Priority Date/Time Associated Diagnosis Comments MR CERVICAL SPINE WO CONTRAST 12/19/2023 7:59 AM EST documented in this encounter Results * MR cervical spine wo contrast (12/19/2023 7:59 AM EST) Anatomical Region Laterality Modality Spine, C-spine Magnetic Resonan ce 12/19/2023 7:59 AM EST Narrative 12/19/2023 8:02 AM EST The [address] [address] Magnetic Resonance Report Signed Patient: MARY FUENTES MR#: [id number] : 1970 Acct:[id number] Age/Sex: 53 / F ADM Date: 12/19/23 Loc: MRI Attending Dr: Ace Ahumada M.D. Ordering Physician: Ace Ahumada M.D. Date of Service: 12/19/23 Procedure(s): MR cervical spine wo con Accession Number(s): [id number] cc: Ace Ahumada M.D.; Isatu GÓMEZ [place] [id number] Patient Name: MARY FUENTES MRN: [id number] date: 1970 Sex: F Assigned Patient Location: MRI Current Patient Location: MRI Accession/Order Number: [id number] Exam Date: 12/19/2023 07:03 Report Date: 12/19/2023 [...] Signed By: 12/19/23 0802 DD/ 0759 TD/TT: Slot Operations Director: Procedure Note Radiology, Radiologist, MD - 12/19/2023 [place] [address] Magnetic Resonance Report Signed Patient: MARY FUENTES DMR#: [id number] : 1970Acct:[id number] Age/Sex: 53 / FADM Date: 12/19/23 Loc: MRI Attending Dr: Ace Ahumada M.D. Ordering Physician: Ace Ahumada M.D. Date of Service: 12/19/23 Procedure(s): MR cervical spine wo con Accession Number(s): [id number] cc: Ace Ahumada M.D.; Isatu GÓMEZ [place] [address] Patient Name: MARY FUENTES MRN: [facility]:[id number] date: 1970 Sex: F Assigned Patient Location: MRI Current Patient Location: MRI Accession/Order Number: [id number] Exam Date: 12/19/2023 07:03 Report Date: 12/19/2023 [...] M.D. Signed By:12/19/23 0802 DD/ 0759 TD/TT: Slot Operations Director: us Generic External Data Provider IMG MRI PROCEDURE S Final Result documented in this encounter Visit Diagnoses Not on filedocumented in this encounter Care Teams Oracle Adf Consultant Relationship Specialty Start Date End Date Eliceo Gómez DO [address] [place] [address] PCP - General Family Medicine 04/04/23 Eliceo Gómez DO [address] [place] [address] PCP - [facility] 05/06/2310/05 Beata Hernandez PA [address] [place] [address] Dietitian Nutrition 08/08/23 05/16/24 Juan Damico DO [address] [place] [address] Referring Physician Obstetrics and Gynecology 05/20/24 documented as of this encounter
--- OUTSIDE RECORDS SUMMARY | 2025-05-19 08:01 | XMS_ITS | Encounter Summary ---
Author Organization [employer] Address [id number] [address] [place] [address] Care Team Providers Care Stock Preparer Name Role Phone Dalia Morales DO, George R Primary Care Provider + Encounter Details Date Type Department Care Team (Late st Contact Info) Description 01/04/2021 Orders Only [facility] Pulmonary/Sleep Medicine [address] [place] [address] Daisy Ley LPN Asthma, unspecified asthma [...] Description 06/06/2025 9:00 AM EDT Office Visit [facility] Digestive Health Care, A Department of [address] [place] [address] Vicki Roche DO [address] [facility], [address] [place] [address] Noman Mayo MD [address] [facility], [address] [place] [address] 08/19/2025 3:30 PM EDT Office Visit [facility] Neurology, A Department of [address], [address], [address] [place] [phone] Pauline Christensen MD [address] [place] [address] 101, [address], [address] [place] [address] documented as of this encounter Procedures Procedure [...] Alpha 1 antitrypsin targeting genotyping (12/25/2020) 12/25/2020 Gwendolyn Stroud SUPERVISOR KNITTING-TRANSPORT AIDE LAB BLOOD ORDERABLES Fi nal Result [facility] * Immunoglobulins (12/25/2020) 12/25/2020 Gwendolynkamilla Stroud SUPERVISOR KNITTING-TRANSPORT AIDE LAB BLOOD ORDERABLES Fi nal Result Performing Organization Address City/[facility] Co de Phone Number [facility] * Respiratory allergy panel (12/25/2020) Blood Venous blood / Unknown 12/25/2020 Gwendolynkamilla Stroud SUPERVISOR KNITTING-TRANSPORT AIDE LAB BLOOD ORDERABLES Fi nal Result Performing Organization Address [facility] [address]/[facility] de Phone Number [facility] documented in this encounter Visit Diagnoses Diagnosis Asthma, unspecified asthma severity, unspecified whether complicated, unspecified whether persistent documented in this encounter Care Teams Stock Preparer Relationship Specialty Start Date End Date Eliceo Gómez Jr., DO [address] [place] [address], [address], [place] [address] PCP - General Family Medicine 12/11/19 Jenna Butler [address] Consulting Physician Behavioral Health 12/20/23 documented as of this encounter
--- OUTSIDE RECORDS SUMMARY | 2025-05-19 08:01 | XMS_ITS | Encounter Summary ---
Author Organization [facility] Address [address] [place] [address] Care Team Providers Care Reconditioning Associate Name Role Phone Eliceo Gómez DO Primary Care Provider [phone] Eliceo Gómez DO Unavailable [phone] Juan Damico DO Unavailable [phone] Encounter Details Date Type Department Care Team (Late st Contact Info) Description 04/30/2025 Abstract [facility] FM [address] [facility] 230 [place] [address] Eliceo Gómez DO [address] [facility] 230 [place] [address] Social History Tobacco Use Types Packs/Day Years [...] any clubs o r organizations such as jain groups, unions, fraternal or athletic groups, or [...] Recorded Patient Health Questionnaire-2 Score 0 01/20/2025 [facility] of Occupat iontx Health - Occupational Stress Questionnaire Answer Date [...] in the past 12 m [facility], were you homeless or living [...] DERM [address] [place] [address] Nelsy Harris, EXECUTIVE PERSONAL ASSISTANT-FNPS [address] [place] [address] documented as of this encounter Visit Diagnoses Not on filedocumented in this encounter Additional Health Concerns Assessment Noted Time PHQ-9 Depression Total Score: 0 01/21/20 25 1:00 PM EDT documented as of this encounter Care Teams Reconditioning Associate Relationship Specialty Start Date End Date Eliceo Gómez DO [address] [place] [address] PCP - General Family Medicine 04/04/23 Eliceo Gómez DO [address] [place] [address] PCP - [facility] 05/06/2310/05 Juan Damico DO [address] [place] [address] Referring Physician Obstetrics and Gynecology 05/20/24 documented as of this encounter
--- OUTSIDE RECORDS SUMMARY | 2025-05-19 08:02 | XMS_ITS | Encounter Summary ---
Author Organization [facility] Address [address] [place] [address] Care Team Providers Care Animal Caretaker Supervisor Name Role Phone Eliceo Gómez DO Primary Care Provider [phone] Eliceo Gómez DO Unavailable [phone] Beata Hernandez Unavailable Juan Damioc DO Unavailable [phone] Encounter Details Date Type Department Care Team [...] any clubs o r organizations such as rastafari groups, unions, fraternal or athletic groups, or [...] Recorded Patient Health Questionnaire-2 Score 0 10/03/2023 [facility] - Occupational Stress Questionnaire Answer [...] DERM [address] [place] [address] Nelsy Harris, INDUSTRIAL TECHNOLOGIST-CORNCOB PIPES ASSEMBLER [address] [place] [address] documented as of this encounter Procedures Procedure Name Priority Date/Time Associated Diagnosis Comments XR FOOT RT MIN 3V 10/25/2023 1:2 9 PM EST documented in this encounter Results * XR FOOT RT MIN 3V (10/25/2023 1:29 PM EST) Anatomical Region Laterality Modality Other 10/25/2023 1:29 PM EST Narrative 10/25/2023 1:31 PM EST The [address] [address] XRay Report Signed Patient: MARY FUENTES MR#: [id number] : 1970 Acct:[id number] Age/Sex: 53 / F ADM Date: 10/25/23 Loc: RAD Attending Dr: Sade Felix D.P.M. Ordering Physician: Sade Felix D.P.M. Date of Service: 10/25/23 Procedure(s): XR foot RT min 3V Accession Number(s): [id number] cc: Sade Felix D.P.M.; Isatu GÓMEZ The [address] [address] Patient Name: MARY FUENTES MRN: [id number] date: 1970 Sex: F Assigned Patient Location: [facility] Current Patient Location: [facility] Accession/Order Number: [id number] Exam Date: 10/25/2023 09:09 Report Date: 10/25/2023 13:29 At the request of: SADE FELIX Procedure: XR foot RT min 3V PROCEDURE: XR foot RT min 3V DATE: 10/25/2023 8:09 AM IT INFRASTRUCTURE MANAGER COMPARISONS: 09/13/2023 CLINICAL INDICATION: RIGHT FOOT F/U [...] By: Deisy Grajeda M.D. Signed By: 10/25/23 8167 DD/ 1329 TD/TT: Environmental Projects Advisor: Procedure Note Radiology, Radiologist, - 01/10/[address] [address] XRay Report Signed Patient: MARY FUENTES DMR#: [id number] : 1970Acct:[id number] Age/Sex: 53 / FADM Date: 10/25/23 Loc: RAD Attending Dr: Sade Felix D.P.M. Ordering Physician: Sade Felix D.P.M. Date of Service: 10/25/23 Procedure(s): XR foot RT min 3V Accession Number(s): [id number] cc: Sade Felix D.P.M.; Isatu GÓMEZ The [place] [id number] Patient Name: MARY FUENTES MRN: [id number] date: 1970 Sex: F Assigned Patient Location: [facility] Current Patient Location: [facility] Accession/Order Number: [id number] Exam Date: 10/25/2023 09:09 Report Date: 10/25/2023 13:29 At the request of: SADE FELIX Procedure: XR foot RT min 3V PROCEDURE: XR foot RT min 3V DATE: 10/25/2023 8:09 AM IT INFRASTRUCTURE MANAGER COMPARISONS: 09/13/2023 CLINICAL INDICATION: RIGHT FOOT F/U [...] Dictated By: Deisy Grajeda M.D. Signed By:10/25/23 1330 DD/ 1329 TD/TT: Environmental Projects Advisor: us Generic External Data Provider [facility] Final Result documented in this encounter Visit Diagnoses Not on filedocumented in this encounter Care Teams Animal Caretaker Supervisor Relationship Specialty Start Date End Date Eliceo Gómez DO [address] [place] [address] PCP - General Family Medicine 04/04/23 Eliceo Gómez DO [address] [place] [address] PCP - [facility] 05/06/2310/05 Beata Hernandez PA [address] [place] [address] Dietitian Nutrition 08/08/23 05/16/24 Juan Damico DO [address] [place] [address] Referring Physician Obstetrics and Gynecology 05/20/24 documented as of this encounter
--- OUTSIDE RECORDS SUMMARY | 2025-05-19 08:02 | XMS_ITS | Encounter Summary ---
Author Organization [facility] Address [address] [facility] [place] [address] Care Team Providers Care Surveying Crew Stake Runner Name Role Phone Eliceo Gómez DO Primary Care Provider [phone] Eliceo Gómez DO Unavailable [phone] Beata Hernandez Unavailable Juan Damico DO Unavailable [phone] Encounter Details Date Type Department Care Team (Late st Contact Info) Description 06/12/2023 Orders Only [facility] [address] [facility] [address] [place] [address] A, Unknown Practice [address] [place] [address] Social History Tobacco Use Types Packs/Day Years [...] you attend chur or moravian services? Never 04/14/2023 Do you belong to [...] Recorded Patient Health Questionnaire-2 Score 0 06/08/2023 [facility] - Occupational Stress Questionnaire Answer Date Recorded [...] DERM [address] [place] [address] Nelsy Harris APRN-BOWLING ALLEY ATTENDANT [address] [place] [address] documented as of this encounter [...] on filedocumented in this encounter Care Teams Surveying Crew Stake Runner Relationship Specialty Start Date End Date Eliceo Gómez DO [address] [place] [address] PCP - General Family Medicine 04/04/23 Eliceo Gómez DO [address] [place] [address] PCP - [facility] 05/06/2310/05 Beata Hernandez PA [address] [place] [address] Dietitian Nutrition 08/08/23 05/16/24 Juan Damico, DO [address] [place] [address] Referring Physician Obstetrics and Gynecology 05/20/24 documented as of this encounter
--- OUTSIDE RECORDS SUMMARY | 2025-05-19 08:02 | XMS_ITS | Encounter Summary ---
Author Organization [facility] Address [address] [facility] [place] [address] Care Team Providers Care Senior Benefits Manager Name Role Phone Eliceo Gómez DO Primary Care Provider [phone] Eliceo Gómez DO Unavailable [phone] Juan Damico DO Unavailable [phone] Encounter Details Date Type Department Care Team (Late st Contact Info) Description 03/06/2025 Abstract [facility] [address] [facility] [address] [place] [address] Eliceo Gómez DO [address] [facility] 230 [place] [address] Social History Tobacco Use Types Packs/Day Years [...] Recorded Patient Health Questionnaire-2 Score 0 01/20/2025 [facility]at ionar Health - Occupational Stress [...] DERM [address] [place] [address] Nelsy Harris, MANUAL ARTS TEACHER-FIELD REPRESENTATIVE [address] [place] [address] documented as of this encounter Visit Diagnoses Not on filedocumented in this encounter Additional Health Concerns Assessment Noted Time PHQ-9 Depression Total Score: 0 01/21/20 25 1:00 PM EDT documented as of this encounter Care Teams Senior Benefits Manager Relationship Specialty Start Date End Date Eliceo Gómez DO [address] [place] [address] PCP - General Family Medicine 04/04/23 Eliceo Gómez DO [address] [place] [address] PCP - [facility] 05/06/2310/05 Juan Damico DO [address] [place] [address] Referring Physician Obstetrics and Gynecology 05/20/24 documented as of this encounter
--- OUTSIDE RECORDS SUMMARY | 2025-05-19 08:02 | XMS_ITS | Encounter Summary ---
Author Organization [facility] Address [address] [place] [address] Care Team Providers Care Unit Secy Name Role Phone Eliceo Gómez DO Primary Care Provider Eliceo Gómez DO Unavailable [phone] Beata Hernandez Unavailable Juan Damico DO Unavailable [phone] Encounter Details Date Type Department Care Team (Late st Contact Info) Description 06/21/2023 Abstract [facility] [address] [facility] [address] [place] [address] Eliceo Gómez, DO [address] [facility] 230 [place] [address] Social History Tobacco Use Types Packs/Day Years [...] Patient Health Questionnaire-2 Score 0 06/08/2023 [facility] - Occupational Stress Questionnaire [...] slept in a chcf (including now)? No 04/14/2023 Comments No Sex [...] DERM [address] [place] [address] Nelsy Harris, MERCHANDISE CLERK-FREQUENCY CHECKER [address] [place] [address] documented as of this encounter Visit Diagnoses Not on filedocumented in this encounter Care Teams Unit Secy Relationship Specialty Start Date End Date Eliceo Gómez DO [address] [place] [address] PCP - General Family Medicine 04/04/23 Eliceo Gómez DO [address] [facility] [address] [place] [address] PCP - [facility] 05/06/2310/05 Beata Hernandez PA [address] [facility] [place] [address] Dietitian Nutrition 08/08/23 05/16/24 Juan Damico DO [address] [facility] [place] [address] Referring Physician Obstetrics and Gynecology 05/20/24 documented as of this encounter
--- OUTSIDE RECORDS SUMMARY | 2025-05-19 08:02 | XMS_ITS | Encounter Summary ---
Author Organization [facility] Address [address] [facility] [place] [address] Care Team Providers Care Life Educator Name Role Phone Eliceo Gómez DO Primary Care Provider [phone] Eliceo Gómez DO Unavailable [phone] Juan Damico DO Unavailable [phone] Encounter Details Date Type Department Care Team (Late st Contact Info) Description 03/17/2025 Abstract [facility] [address] [facility] 230 [place] [address] Eliceo Gómez DO [address] [facility] 230 [place] [address] Social History Tobacco Use Types Packs/Day Years [...] you attend chur or hinduism services? Never 05/01/2024 Do you [...] 01/20/2025 [facility] of Occupat ionnh Health - Occupational Stress [...] any time in the past 12 m [facility], were you homeless or [...] DERM [address] [place] [address] Nelsy Harris, TRANSPORTATION DRIVER-AUTOMATION CONTROL INTEGRATOR [address] [place] [address] documented as of this encounter Visit Diagnoses Not on filedocumented in this encounter Additional Health Concerns Assessment Noted Time PHQ-9 Depression Total Score: 0 01/21/20 25 1:00 PM EDT documented as of this encounter Care Teams Life Educator Relationship Specialty Start Date End Date Eliceo Gómez DO [address] [place] [address] PCP - General Family Medicine 04/04/23 Eliceo Gómez DO [address] [place] [address] PCP - [facility] 05/06/2310/05 Juan Damico DO [address] [place] [address] Referring Physician Obstetrics and Gynecology 05/20/24 documented as of this encounter
--- OUTSIDE RECORDS SUMMARY | 2025-05-19 08:02 | XMS_ITS | Encounter Summary ---
Author Organization [facility] Address [address] [facility] [place] [address] Care Team Providers Care Satin Finisher Name Role Phone Eliceo Gómez DO Primary Care Provider [phone] Eliceo Gómez DO Unavailable [phone] Beata Hernandez Unavailable Juan Damico DO Unavailable [phone] Encounter Details Date Type Department Care Team (Late st Contact Info) Description 06/28/2023 Orders Only [facility] [address] [facility] [address] [place] [address] A, Unknown Practice [address] [place] [address] Social History Tobacco Use Types Packs/Day Years [...] How often do you attend chur or worship services? Never 04/14/2023 Do you belong to [...] Questionnaire-2 Score 0 06/08/2023 [facility] - Occupational Stress Questionnaire Answer Date Recorded [...] DERM [address] [place] [address] Nelsy Harris APRN-CUFF MAKER [address] [place] [address] documented as of this encounter [...] on filedocumented in this encounter Care Teams Satin Finisher Relationship Specialty Start Date End Date Eliceo Gómez DO [address] [place] [address] PCP - General Family Medicine 04/04/23 Eliceo Gómez, DO [address] [place] [address] PCP - [facility] 05/06/2310/05 Beata Hernandez PA [address] [place] [address] Dietitian Nutrition 08/08/23 05/16/24 Juan Damico, [address] [place] [address] Referring Physician Obstetrics and Gynecology 05/20/24 documented as of this encounter
--- OUTSIDE RECORDS SUMMARY | 2025-05-19 08:02 | XMS_ITS | Encounter Summary ---
Author Organization [facility] Address [address] [place] [address] Care Team Providers Care Human Anatomy Teacher Name Role Phone Eliceo Gómez DO Primary Care Provider [phone] Eliceo Gómez DO Unavailable [phone] Beata Hernandez Unavailable Juan Damico DO Unavailable [phone] Encounter Details Date Type Department Care Team (Late st Contact Info) Description 08/03/2023 Orders Only [facility] [address] [facility] [address] [place] [address] A, Unknown Practice [address] [place] [address] Social History Tobacco Use Types Packs/Day Years [...] How often do you attend chur or adventist services? Never 04/14/2023 Do you belong to any clubs o r organizations such as adventism groups, unions, fraternal or athletic groups, or [...] Recorded Patient Health Questionnaire-2 Score 0 07/06/2023 [facility] - Occupational Stress Questionnaire Answer Date [...] slept in a snf (including now)? No 04/14/2023 Comments No Sex [...] DERM [address] [place] [address] Nelsy Harris APRN-QUALITY CONTROL ENGINEERING TECHNICIAN [address] [place] [address] documented as of this encounter [...] on filedocumented in this encounter Care Teams Human Anatomy Teacher Relationship Specialty Start Date End Date Eliceo Gómez DO [address] [place] [address] PCP - General Family Medicine 04/04/23 Eliceo Gómez DO [address] [place] [address] PCP - [facility] 05/06/2310/05 Beata Hernandez PA [address] [place] [address] Dietitian Nutrition 08/08/23 05/16/24 Juan Damico, DO [address] [place] [address] Referring Physician Obstetrics and Gynecology 05/20/24 documented as of this encounter
--- OUTSIDE RECORDS SUMMARY | 2025-05-19 08:02 | XMS_ITS | Encounter Summary ---
Author Organization [facility] Address [address] [facility] [place] [address] Care Team Providers Care Applications Processor Name Role Phone Eliceo Gómez DO Primary Care Provider [phone] Eliceo Gómez DO Unavailable [phone] Juan Damico DO Unavailable [phone] Encounter Details Date Type Department Care Team (Late st Contact Info) Description 10/07/2024 Abstract [facility] [address] [facility] 230 [place] [address] Eliceo Gómez DO [address] [facility] 230 [place] [address] Social History Tobacco Use Types Packs/Day Years [...] you attend chur or taoist services? Never 05/01/2024 Do you belong to [...] Recorded Patient Health Questionnaire-2 Score 0 07/11/2024 [facility] of Occupat ionri Health - Occupational Stress Questionnaire Answer Date [...] any time in the past 12 m [facility], were you homeless or living in [...] DERM [address] [place] [address] Nelsy Harris, FRONT DESK CLERK-TACTICAL DEBRIEFER OFFICER [address] [place] [address] documented as of this encounter Visit Diagnoses Not on filedocumented in this encounter Care Teams Applications Processor Relationship Specialty Start Date End Date Eliceo Gómez, DO [address] [place] [address] PCP - General Family Medicine 04/04/23 Eliceo Gómez, DO [address] [place] [address] PCP - [facility] 05/06/2310/05 Juan Damico, DO [address] [place] [address] Referring Physician Obstetrics and Gynecology 05/20/24 documented as of this encounter
--- OUTSIDE RECORDS SUMMARY | 2025-05-19 08:02 | XMS_ITS | Encounter Summary ---
Author Organization [facility] Address [address] [place] [address] Care Team Providers Care Oyster Harvester Name Role Phone HernandezEliceo randolph Asiya DO Primary Care Provider Eliceo Gómez DO Unavailable [phone] Beata Hernandez Unavailable Juan Damico DO Unavailable [phone] Encounter Details Date Type Department Care Team (Late st Contact Info) Description 10/25/2023 Orders Only [facility] [address] [place] [address] Jacob Felix MD [address] [place] [address] [place] [address] Social History Tobacco Use Types Packs/Day Years [...] you attend chur or advent services? Never 04/14/2023 Do you [...] DERM [address] [place] [address] Nelsy Harris APRN-KWESI [address] [place] [address] documented as of this encounter [...] filedocumented in this encounter Care Teams Oyster Harvester Relationship Specialty Start Date End Date Eliceo Gómez DO [address] [place] [address] PCP - General Family Medicine 04/04/23 Eliceo Gómez DO [address] [place] [address] PCP - [facility] 05/06/2310/05 Beata Hernandez PA [address] [place] [address] Dietitian Nutrition 08/08/23 05/16/24 Juan Damico DO [address] [place] [address] Referring Physician Obstetrics and Gynecology 05/20/24 documented as of this encounter
--- OUTSIDE RECORDS SUMMARY | 2025-05-19 08:02 | XMS_ITS | Encounter Summary ---
Author Organization [facility] Address [address] [facility] [place] [address] Care Team Providers Care Chief Investigator Name Role Phone Eliceo Gómez DO Primary Care Provider [phone] Eliceo Gómez DO Unavailable [phone] Juan Damico DO Unavailable [phone] Encounter Details Date Type Department Care Team (Late st Contact Info) Description 10/14/2024 Abstract [facility] [address] [facility] 230 [place] [address] Eliceo Gómez DO [address] [facility] 230 [place] [address] Social History Tobacco Use Types Packs/Day Years [...] Score 0 07/11/2024 [facility] Occupat ionsc Health - Occupational [...] time in the past 12 m [facility], were you homeless or living [...] DERM [address] [place] [address] Nelsy Harris, MOLASSES PREPARER-OVERLOCK COLLAR SETTER [address] [place] [address] documented as of this encounter Visit Diagnoses Not on filedocumented in this encounter Care Teams Chief Investigator Relationship Specialty Start Date End Date Eliceo Gómez, DO [address] [place] [address] PCP - General Family Medicine 04/04/23 Eliceo Gómez, DO [address] [place] [address] PCP - [facility] 05/06/2310/05 Juan Damico, DO [address] [place] [address] Referring Physician Obstetrics and Gynecology 05/20/24 documented as of this encounter
--- OUTSIDE RECORDS SUMMARY | 2025-05-19 08:02 | XMS_ITS | Encounter Summary ---
Author Organization [facility] Address [address] [facility] [place] [address] Care Team Providers Care Rod Greaser Name Role Phone Eliceo Gómez DO Primary Care Provider [phone] Eliceo Gómez DO Unavailable [phone] Beata Hernandez Unavailable Juan Damico DO Unavailable Encounter Details Date Type Department Care Team (Late st Contact Info) Description 06/07/2023 Orders Only [facility] [address] [facility] [address] [place] [address] A, Unknown Practice [address] [place] [address] Social History Tobacco Use Types Packs/Day Years [...] Score 0 06/08/2023 [facility] - Occupational Stress Questionnaire Answer [...] [address] [place] [address] PradeepNelsy randall Thomas, SWITCH COUPLER-HORSE RACER [address] [place] [address] documented as of this encounter Procedures Procedure [...] on filedocumented in this encounter Care Teams Rod Greaser Relationship Specialty Start Date End Date Eliceo Gómez DO [address] [place] [address] PCP - General Family Medicine 04/04/23 Eliceo Gómez DO [address] [place] [address] PCP - [facility] 05/06/2310/05 Beata Hernandez PA [address] [place] [address] Dietitian Nutrition 08/08/23 05/16/24 Juan Damico DO [address] [place] [address] Referring Physician Obstetrics and Gynecology 05/20/24 documented as of this encounter
--- OUTSIDE RECORDS SUMMARY | 2025-05-19 08:02 | XMS_ITS | Encounter Summary ---
Author Organization [facility] Address [address] [place] [address] Care Team Providers Care Hospital Housekeeper Name Role Phone Eliceo Gómez DO Primary Care Provider [phone] Eliceo Gómez DO Unavailable [phone] Beata Hernandez Unavailable Juan Damico DO Unavailable [phone] Encounter Details Date Type Department Care Team [...] often do you attend chur ch or denominational services? Never 04/14/2023 Do you belong to any clubs o r organizations such as yazdanism groups, unions, fraternal or athletic groups, or [...] Recorded Patient Health Questionnaire-2 Score 0 07/06/2023 [facility] - Occupational Stress Questionnaire [...] [address] [place] [address] Nelsy Harris APRN-CORRECTIONAL COUNSELOR [address] [place] [address] documented as of this encounter Procedures Procedure Name Priority Date/Time Associated Diagnosis Comments CT ANKLE RT WO CON 08/05/2023 8: 01 PM EDT documented in this encounter Results * CT ANKLE RT WO CON (08/05/2023 8:01 PM EDT) Anatomical Region Laterality Modality Other 08/05/2023 8:01 PM EDT Narrative 08/05/2023 8:01 PM EDT The [address] [address] [address] Scan Report Signed Patient: MARY FUENTES MR#: [id number] : 1970 Acct:[id number] Age/Sex: 53 / F ADM Date: 08/04/23 Loc: CT Attending Dr: Niecy Serna Ordering Physician: Niecy Serna Date of Service: 08/04/23 Procedure(s): CT ankle RT wo con Accession Number(s): [id number] cc: Isatu GÓMEZ [place] [id number] Patient Name: MARY FUENTES MRN: [facility]:[id number] date: 1970 Sex: F Assigned Patient Location: CT Current Patient Location: Accession/Order Number: [id number] Exam Date: 08/04/2023 12:43 Report Date: 08/05/2023 20:01 At the request of: NIECY SERNA Procedure: CT ankle RT wo con EXAM: CT ankle RT wo con, [id number] 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 TECHNIQUE: Helical [...] Yang Signed By: 08/05/232003 DD/ 00 TD/TT: Cigar Tobacco Rehandler: Procedure Note Radiology, Radiologist, MD - 08/05/2023 [place] [address] [place] Scan Report Signed Patient: MARY FUENTES DMR#: [id number] : 1970Acct:[id number] Age/Sex: 53 / FADM Date: 08/04/23 Loc: CT Attending Dr: Niecy Serna Ordering Physician: Niecy Serna Date of Service: 08/04/23 Procedure(s): CT ankle RT wo con Accession Number(s): [id number] cc: Isatu GÓMEZ [place] [id number] Patient Name: MARY FUENTES MRN: [facility]:[id number] date: 1970 Sex: F Assigned Patient Location: CT Current Patient Location: Accession/Order Number: [id number] Exam Date: 08/04/2023 12:43 Report Date: 08/05/2023 20:01 At the request of: NIECY SERNA Procedure: CT ankle RT wo con EXAM: CT ankle RT wo con, [id number] 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 TECHNIQUE: Helical [...] Mell Yang Signed By:08/05/232003 DD/ 00 TD/TT: Cigar Tobacco Rehandler: us Generic External Data Provider [facility] Final Result documented in this encounter Visit Diagnoses Not on filedocumented in this encounter Care Teams Hospital Housekeeper Relationship Specialty Start Date End Date Eliceo Gómez DO [address] [place] [id number] PCP - General Family Medicine 04/04/23 Eliceo Gómez DO [address] [place] [address] PCP - [facility] 05/06/2310/05 Beata Hernandez PA [address] [place] [address] Dietitian Nutrition 08/08/23 05/16/24 Juan Damico DO [address] [place] [address] Referring Physician Obstetrics and Gynecology 05/20/24 documented as of this encounter
--- OUTSIDE RECORDS SUMMARY | 2025-05-19 08:02 | XMS_ITS | Encounter Summary ---
Author Organization [facility] Address [address] [facility] [place] [address] Care Team Providers Care Right Of Way Buyer Name Role Phone Eliceo Gómez DO Primary Care Provider [phone] Eliceo Gómez DO Unavailable [phone] Beata Hernandez Unavailable Juan Damico DO Unavailable Encounter Details Date Type Department Care Team (Late st Contact Info) Description 09/13/2023 Orders Only [facility] [address] [facility] [address] [place] [address] A, Unknown Practice [address] [place] [address] Social History Tobacco Use Types Packs/Day Years [...] Patient Health Questionnaire-2 Score 0 07/06/2023 [facility] - Occupational Stress Questionnaire Answer Date [...] a longterm (including now)? No 04/14/2023 Comments No Sex [...] DERM [address] [place] [address] Nelsy Harris APRN-INTERNAL CARVER [address] [facility] [address] [place] [address] documented as of this encounter [...] on filedocumented in this encounter Care Teams Right Of Way Buyer Relationship Specialty Start Date End Date Eliceo Gómez DO [address] [place] [address] PCP - General Family Medicine 04/04/23 Eliceo Gómez DO [address] [place] [address] PCP - [facility] 05/06/2310/05 Beata Hernandez PA [address] [place] [address] Dietitian Nutrition 08/08/23 05/16/24 Juan Damico DO [address] [place] [address] Referring Physician Obstetrics and Gynecology 05/20/24 documented as of this encounter
--- OUTSIDE RECORDS SUMMARY | 2025-05-19 08:02 | XMS_ITS | Encounter Summary ---
Author Organization [facility] Address [address] [facility] [place] [address] Care Team Providers Care Timber Harvester Operator Name Role Phone Eliceo Gómez DO Primary Care Provider [phone] Eliceo Gómez DO Unavailable [phone] Juan Damico DO Unavailable [phone] Encounter Details Date Type Department Care Team (Late st Contact Info) Description 10/24/2024 Abstract [facility] [address] [facility] 230 [place] [address] Eliceo Gómez DO [address] [facility] 230 [place] [address] Social History Tobacco Use Types Packs/Day Years [...] you attend chur or yazidism services? Never 05/01/2024 Do you belong to [...] Patient Health Questionnaire-2 Score 0 07/11/2024 [facility] of Occupat ionar Health - Occupational Stress [...] DERM [address] [place] [address] Nelsy Harris, HIRED HELP-COIL WINDER [address] [place] [address] documented as of this encounter Visit Diagnoses Not on filedocumented in this encounter Care Teams Timber Harvester Operator Relationship Specialty Start Date End Date Eliceo Gómez, DO [address] [place] [address] PCP - General Family Medicine 04/04/23 Eliceo Gómez, DO [address] [place] [address] PCP - [facility] 05/06/2310/05 Juan Damico, DO [address] [place] [address] Referring Physician Obstetrics and Gynecology 05/20/24 documented as of this encounter
--- OUTSIDE RECORDS SUMMARY | 2025-05-19 08:02 | XMS_ITS | Encounter Summary ---
Author Organization [facility] Address [address] [facility] [place] [address] Care Team Providers Care Compliance Mgr Name Role Phone Eliceo Gómez DO Primary Care Provider [phone] Eliceo Gómez DO Unavailable [phone] Juan Damico DO Unavailable [phone] Encounter Details Date Type Department Care Team (Late st Contact Info) Description 11/20/2024 Abstract [facility] [address] [facility] 230 [place] [address] Eliceo Gómez DO [address] [facility] 230 [place] [address] Social History Tobacco Use Types Packs/Day Years [...] Recorded Patient Health Questionnaire-2 Score 0 07/11/2024 [facility] of Occupat ionia Health - Occupational Stress [...] DERM [address] [place] [address] Nelsy Harris, ARMOR RECONNAISSANCE VEHICLE DRIVER-TECHNICAL SERVICE SPECIALIST [address] [place] [address] documented as of this encounter Visit Diagnoses Not on filedocumented in this encounter Care Teams Compliance Mgr Relationship Specialty Start Date End Date Eliceo Gómez, DO [address] [place] [address] PCP - General Family Medicine 04/04/23 Eliceo Gómez, DO [address] [place] [address] PCP - [facility] 05/06/2310/05 Juan Damico, DO [address] [place] [address] Referring Physician Obstetrics and Gynecology 05/20/24 documented as of this encounter
--- OUTSIDE RECORDS SUMMARY | 2025-05-19 08:02 | XMS_ITS | Encounter Summary ---
Author Organization [facility] Address [address] [place] [address] Care Team Providers Care Pilates Instructor Name Role Phone Eliceo Gómez DO Primary Care Provider [phone] Eliceo Gómez DO Unavailable [phone] Juan Damico DO Unavailable [phone] Encounter Details Date Type Department Care Team (Late st Contact Info) Description 12/26/2024 Abstract [facility] [address] [facility] 230 [place] [address] Eliceo Gómez DO [address] [facility] 230 [place] [address] Social History Tobacco Use Types Packs/Day Years [...] 0 07/11/2024 [facility] of Occupat ionmo Health - Occupational Stress [...] any time in the past 12 m [facility], were you homeless or living in [...] DERM [address] [place] [address] Nelsy Harris, SIEBEL DEVELOPER-MODERN LANGUAGES PROFESSOR [address] [place] [address] documented as of this encounter Visit Diagnoses Not on filedocumented in this encounter Care Teams Pilates Instructor Relationship Specialty Start Date End Date Eliceo Gómez, DO [address] [place] [address] PCP - General Family Medicine 04/04/23 Eliceo Gómez, DO [address] [place] [address] PCP - [facility] 05/06/2310/05 Juan Damico, DO [address] [place] [address] Referring Physician Obstetrics and Gynecology 05/20/24 documented as of this encounter
--- OUTSIDE RECORDS SUMMARY | 2025-05-19 08:02 | XMS_ITS | Encounter Summary ---
Author Organization [facility] Address [address] [place] [address] Care Team Providers Care Mountain Bike Guide Name Role Phone Eliceo Gómez DO Primary Care Provider [phone] Eliceo Gómez DO Unavailable [phone] Beata Hernandez Unavailable Juan Damico DO Unavailable [phone] Encounter Details Date Type Department Care Team (Late st Contact Info) Description 07/11/2023 Abstract [facility] [address] [facility] [address] [place] [address] Eliceo Gómez, DO [address] [facility] 230 [place] [address] Social History Tobacco Use Types Packs/Day Years [...] 07/06/2023 [facility] - Occupational [...] slept in a intermediate (including now)? No 04/14/2023 Comments No Sex [...] DERM [address] [place] [address] Nelsy Harris APRN-COURT ASSISTANT [address] [place] [address] documented as of this encounter Visit Diagnoses Not on filedocumented in this encounter Care Teams Mountain Bike Guide Relationship Specialty Start Date End Date Eliceo Gómez DO [address] [place] [address] PCP - General Family Medicine 04/04/23 Eliceo Gómez DO [address] [place] [address] PCP - [facility] 05/06/2310/05 Beata Hernandez PA [address] [place] [address] Dietitian Nutrition 08/08/23 05/16/24 Juan Damico DO [address] [place] [address] Referring Physician Obstetrics and Gynecology 05/20/24 documented as of this encounter
--- OUTSIDE RECORDS SUMMARY | 2025-05-19 08:02 | XMS_ITS | Encounter Summary ---
Author Organization [facility] Address [address] [place] [address] Care Team Providers Care Mgmt Consultant Name Role Phone Eliceo Gómez DO Primary Care Provider Eliceo Gómez DO Unavailable [phone] Beata Hernandez Unavailable Juan Damico DO Unavailable [phone] Encounter Details Date Type Department Care Team (Late st Contact Info) Description 06/20/2023 Abstract [facility] [address] [facility] [address] [place] [address] Juan Damico, DO [address] [facility] [address] [place] [address] Social History Tobacco Use Types Packs/Day Years [...] Recorded Patient Health Questionnaire-2 Score 0 06/08/2023 [facility] - Occupational Stress Questionnaire [...] DERM [address] [place] [address] Nelsy Harris, UNIFORM DESIGNER-VISITOR SERVICES INFORMATION ASSISTANT [address] [place] [address] documented as of this encounter Visit Diagnoses Not on filedocumented in this encounter Care Teams Mgmt Consultant Relationship Specialty Start Date End Date Eliceo Gómez DO [address] [place] [address] PCP - General Family Medicine 04/04/23 Eliceo Gómez DO [address] [facility] [address] [place] [address] PCP - [facility] 05/06/2310/05 Beata Hernandez PA [address] [facility] [place] [address] Dietitian Nutrition 08/08/23 05/16/24 Juan Damico DO [address] [facility] [place] [address] Referring Physician Obstetrics and Gynecology 05/20/24 documented as of this encounter
--- OUTSIDE RECORDS SUMMARY | 2025-05-19 08:02 | XMS_ITS | Encounter Summary ---
Author Organization [facility] Address [address] [place] [address] Care Team Providers Care Template Inspector Name Role Phone Eliceo Gómez DO Primary Care Provider [phone] Eliceo Gómez DO Unavailable [phone] Beata Hernandez Unavailable Juan Damico DO Unavailable [phone] Encounter Details Date Type Department Care Team (Late st Contact Info) Description 07/12/2023 Orders Only [facility] [address] [facility] [address] [place] [address] A, Unknown Practice [address] [place] [address] Social History Tobacco Use Types Packs/Day Years [...] Recorded Patient Health Questionnaire-2 Score 0 07/06/2023 [facility] - Occupational Stress Questionnaire [...] place to sleep or slept in a detention (including now)? No 04/14/2023 Comments No Sex [...] DERM [address] [place] [address] Nelsy Harris APRN-MARKETING TRAFFIC MANAGER [address] [place] [address] documented as of this encounter [...] on filedocumented in this encounter Care Teams Template Inspector Relationship Specialty Start Date End Date Eliceo Gómez DO [address] [place] [address] PCP - General Family Medicine 04/04/23 Eliceo Gómez, DO [address] [place] [address] PCP - [facility] 05/06/2310/05 Beata Hernandez PA [address] [place] [address] Dietitian Nutrition 08/08/23 05/16/24 Juan Damico, [address] [place] [address] Referring Physician Obstetrics and Gynecology 05/20/24 documented as of this encounter
--- OUTSIDE RECORDS SUMMARY | 2025-05-19 08:02 | XMS_ITS | Encounter Summary ---
Author Organization [facility] Address [address] [place] [address] Care Team Providers Care Sales Exec Name Role Phone Eliceo Gómez DO Primary Care Provider [phone] Eliceo Gómez DO Unavailable [phone] Beata Hernandez Unavailable Juan Damico DO Unavailable [phone] Encounter Details Date Type Department Care Team (Late st Contact Info) Description 07/25/2023 Orders Only [facility] [address] [facility] [address] [place] [address] A, Unknown Practice [address] [place] [address] Social History Tobacco Use Types Packs/Day Years [...] Recorded Patient Health Questionnaire-2 Score 0 07/06/2023 [facility] [...] DERM [address] [place] [address] Nelsy Harris APRN-CABLE SPLICER HELPER [address] [place] [address] documented as of this encounter Procedures Procedure Name Priority Date/Time Associated Diagnosis Comments ESOPHAGOSCOPY Routine 07/25/2023 3:25 PM EDT documented in this encounter Results * Esophagoscopy (07/25/2023 3:25 PM EDT) Anatomical Region Laterality Modality Endoscopy us Unknown Practice A ENDOSCOPY PROCEDURE ORDERABLE S Final Result documented in this encounter Visit Diagnoses Not on filedocumented in this encounter Care Teams Sales Exec Relationship Specialty Start Date End Date Eliceo Gómez DO [address] [place] [address] PCP - General Family Medicine 04/04/23 Eliceo Gómez DO [address] [facility] [address] [place] [address] PCP - [facility] 05/06/2310/05 Beata Hernandez PA [address] [place] [address] Dietitian Nutrition 08/08/23 05/16/24 Juan Damico DO [address] [place] [address] Referring Physician Obstetrics and Gynecology 05/20/24 documented as of this encounter
--- OUTSIDE RECORDS SUMMARY | 2025-05-19 08:02 | XMS_ITS | Encounter Summary ---
Author Organization [facility] Address [address] [facility] [place] [address] Care Team Providers Care Service Order Dispatcher Name Role Phone Eliceo Gómez DO Primary Care Provider [phone] Eliceo Gómez DO Unavailable [phone] Juan Damico DO Unavailable [phone] Encounter Details Date Type Department Care Team (Late st Contact Info) Description 01/30/2025 Abstract [facility] [address] [facility] 230 [place] [address] Eliceo Gómez DO [address] [facility] 230 [place] [address] Social History Tobacco Use Types Packs/Day Years [...] Recorded Patient Health Questionnaire-2 Score 0 01/20/2025 [facility] of Occupat ionmd Health - Occupational Stress [...] any time in the past 12 m [facility], were you homeless or [...] DERM [address] [place] [address] Nelsy Harris, FISHER LINE-ACCOUNT TECHNICIAN [address] [place] [address] documented as of this encounter Visit Diagnoses Not on filedocumented in this encounter Additional Health Concerns Assessment Noted Time PHQ-9 Depression Total Score: 0 01/21/20 25 1:00 PM EDT documented as of this encounter Care Teams Service Order Dispatcher Relationship Specialty Start Date End Date Elieco Gómez DO [address] [place] [address] PCP - General Family Medicine 04/04/23 Eliceo Gómez DO [address] [place] [address] PCP - [facility] 05/06/2310/05 Juan Damico DO [address] [place] [address] Referring Physician Obstetrics and Gynecology 05/20/24 documented as of this encounter
--- OUTSIDE RECORDS SUMMARY | 2025-05-19 08:02 | XMS_ITS | Encounter Summary ---
Author Organization [facility] Address [address] [place] [address] Care Team Providers Care Modeler Name Role Phone Eliceo Gómez DO Primary Care Provider Eliceo Gómez DO Unavailable [phone] Beata Hernandez Unavailable Juan Damico DO Unavailable [phone] Encounter Details Date Type Department Care Team [...] often do you attend chur ch or faith services? Never 04/14/2023 Do you [...] Patient Health Questionnaire-2 Score 0 10/03/2023 [facility] - [...] [address] [place] [address] Nelsy Harris APRN-DRIVER MATERIAL HANDLER [address] [place] [address] documented as of this encounter Procedures Procedure Name Priority Date/Time Associated Diagnosis Comments ECG 12-LEAD 11/03/2023 8:38 AM EST documented in this encounter Results * ECG 12-LEAD (11/03/2023 8:38 AM EST) Anatomical Region Laterality Modality Other 11/03/2023 8:38 AM EST Narrative 11/06/2023 5:22 PM EST The [address] [address] Electrocardiograph Report Signed Patient: ELSIE FUENTES MR#: [id number] : 1970 Acct:[id number] Age/Sex: 53 / F ADM Date: Loc: SURGOUT Attending Dr: Sade Felix D.P.M. Ordering Physician: Sade Felix D.P.M. Date of Service: 11/03/23 Procedure(s): ECG 12 lead Accession Number(s): [id number] cc: [facility] Test Date: 2023-11-03 Pat Name: ELSIE FUENTES Department: Room: - Gender: Female Nanotechnologist: : 1970 Requested By: SADE FELIX Order Number: [id number] Reading MD: RIGO EUCEDA Measurements Intervals Barbeau Rate: 52 P: -2 GA: 171 QRS: 9 QRSD: 92 T: 8 QT: 437 QTc: 410 Interpretive Statements SINUS BRADYCARDIA WITH SINUS ARRHYTHMIA No previous ECG available for comparison Electronically Signed On 11-06-2023 17:22:20 EST by RIGO EUCEDA Dictated By: Rigo Euceda D.O. Signed By: 11/06/23 1722 DD/ 0838 TD/TT: Wind Field Manager: Procedure Note Radiology, Radiologist, MD - 11/06/2023 [place] [address] Electrocardiograph Report Signed Patient: ELSIE FUENTES DMR#: [id number] : 1970Acct:[id number] Age/Sex: 53 / FADM Date: Loc: SURGOUT Attending Dr: Sade Felix D.P.M. Ordering Physician: Sade Felix D.P.M. Date of Service: 11/03/23 Procedure(s): ECG 12 lead Accession Number(s): [id number] cc: The [facility] Test Date: 2023-11-03 Pat Name: ELSIE FUENTES Department: Room: - Gender: Female Nanotechnologist: : 1970 Requested By: SADE FELIX Order Number: [id number] Reading MD: RIGO EUCEDA Measurements Intervals [place]be[place] Rate: 52 P: -2 GA: 171 QRS: 9 QRSD: 92 T: 8 QT: 437 QTc: 410 Interpretive Statements SINUS BRADYCARDIA WITH SINUS ARRHYTHMIA No previous ECG available for comparison Electronically Signed On 11-06-2023 17:22:20 EST by RIGO EUCEDA Dictated By: Rigo Euceda D.O. Signed By:11/06/23 1722 DD/ 0838 TD/TT: Wind Field Manager: us Generic External Data Provider [facility] Final Result documented in this encounter Visit Diagnoses Not on filedocumented in this encounter Care Teams Modeler Relationship Specialty Start Date End Date Eliceo Gómez DO [address] [place] [address] PCP - General Family Medicine 04/04/23 Eliceo Gómez DO [address] [place] [address] PCP - [facility] 05/06/2310/05 Beata Hernandez PA [address] [place] [address] Dietitian Nutrition 08/08/23 05/16/24 Juan Damico DO [address] [place] [address] Referring Physician Obstetrics and Gynecology 05/20/24 documented as of this encounter
--- OUTSIDE RECORDS SUMMARY | 2025-05-19 08:02 | XMS_ITS | Encounter Summary ---
Author Organization [facility] Address [address] [place] [address] Care Team Providers Care Project Systems Engineer Name Role Phone Eliceo Gómez DO Primary Care Provider [phone] Eliceo Gómez DO Unavailable [phone] Juan Damico DO Unavailable [phone] Encounter Details Date Type Department Care Team [...] slept in a detention (including now)? No 10/25/2023 Housing Stability Vital [...] were you homeless or living in a detention (including now)? No 05/01/2024 Comments No Sex [...] DERM [address] [place] [address] Nelsy Harris APRN-CHIEF OPERATOR LOCK TENDER [address] [place] [address] documented as of this encounter Procedures Procedure Name Priority Date/Time Associated Diagnosis Comments XR FOOT RT MIN 3V 10/03/2024 9:2 5 AM EST documented in this encounter Results * XR FOOT RT MIN 3V (10/03/2024 9:25 AM EST) Anatomical Region Laterality Modality Other 10/03/2024 9:25 AM EST Narrative 10/03/2024 9:28 [place] [address] XRay Report Signed Patient: ELSIE FUENTES MR#: [id number] : 1970 Acct:[id number] Age/Sex: 54 / F ADM Date: 10/01/24 Loc: RAD Attending Dr: Sade Felix D.P.M. Ordering Physician: Sade Felix D.P.M. Date of Service: 10/01/24 Procedure(s): XR foot RT min 3V Accession Number(s): [id number] cc: Sade Felix D.P.M.; Isatu GÓMEZ [place] [address] Patient Name: ELSIE FUENTES MRN: [id number] date: 1970 Sex: F Assigned Patient Location: [facility] Current Patient Location: [facility] Accession/Order Number: [id number] Exam Date: 10/01/2024 07:45 Report Date: 10/03/2024 [...] M.D. Signed By: 10/03/24927 DD/ 4 TD/TT: Paradi Operator: Procedure Note Radiology, Radiologist, - 10/03/2024 [place] [address] XRay Report Signed Patient: ELSIE FUENTES DMR#: [id number] : 1970Acct:[id number] Age/Sex: 54 / FADM Date: 10/01/24 Loc: RAD Attending Dr: Sade Felix D.P.M. Ordering Physician: Sade Felix D.P.M. Date of Service: 10/01/24 Procedure(s): XR foot RT min 3V Accession Number(s): [id number] cc: Sade Felix D.P.M.; Isatu GÓMEZ The [place] [address] Patient Name: ELSIE FUENTES MRN: [id number] date: 1970 Sex: F Assigned Patient Location: [facility] Current Patient Location: [facility] Accession/Order Number: [id number] Exam Date: 10/01/2024 07:45 Report Date: 10/03/2024 [...] Oliveros M.D. Signed By:10/03/24927 DD/ 4 TD/TT: Paradi Operator: us Generic External Data Provider [facility] Final Result documented in this encounter Visit Diagnoses Not on filedocumented in this encounter Care Teams Project Systems Engineer Relationship Specialty Start Date End Date Eliceo Gómez DO [address] [place] [address] PCP - General Family Medicine 04/04/23 Eliceo Gómez DO [address] [place] [address] PCP - [facility] 05/06/2310/05 Juan Damico DO [address] [place] [address] Referring Physician Obstetrics and Gynecology 05/20/24 documented as of this encounter
--- OUTSIDE RECORDS SUMMARY | 2025-05-19 08:02 | XMS_ITS | Encounter Summary ---
Author Organization [facility] Address [address] [place] [address] Care Team Providers Care Lab Pack Chemist Name Role Phone Eliceo Gómez DO Primary Care Provider [phone] Eliceo Gómez DO Unavailable [phone] Beata Hernandez Unavailable Juan Damico DO Unavailable [phone] Encounter Details Date Type Department Care Team (Late st Contact Info) Description 07/28/2023 Orders Only [facility] [address] [facility] [address] [place] [address] A, Unknown Practice [address] [place] [address] Social History Tobacco Use Types Packs/Day Years [...] How often do you attend chur or mandaeism services? Never 04/14/2023 Do you belong to any clubs o r organizations such as congregation groups, unions, fraternal or athletic groups, or [...] Score 0 07/06/2023 [facility] - Occupational Stress Questionnaire Answer Date [...] DERM [address] [place] [address] Nelsy Harris APRN-NUMERICAL CONTROL MACHINE TOOL OPERATOR [address] [place] [address] documented as of this encounter [...] on filedocumented in this encounter Care Teams Lab Pack Chemist Relationship Specialty Start Date End Date Eliceo Gómez DO [address] [place] [address] PCP - General Family Medicine 04/04/23 Eliceo Gómez DO [address] [place] [address] PCP - [facility] 05/06/2310/05 Beata Hernandez PA [address] [place] [address] Dietitian Nutrition 08/08/23 05/16/24 Juan Damico, DO [address] [place] [address] Referring Physician Obstetrics and Gynecology 05/20/24 documented as of this encounter
--- OUTSIDE RECORDS SUMMARY | 2025-05-19 08:02 | XMS_ITS | Encounter Summary ---
Author Organization [employer] Address [id number] [address] [place] [address] Care Team Providers Care Data Entry Machine Operator Name Role Phone Dalia Morales DO, George R Primary Care Provider + Encounter Details Date Type Department Care Team (Late Contact Info) Description 02/12/2021 Orders Only [facility] [address] [place] [address] External, Scanning Provider Social History Tobacco Use [...] Department Care Team (Late Contact Info) Description 06/06/2025 9:00 AM EDT Office Visit [facility], A Department of [address] [place] [address] Vicki Roche DO [address] [facility] [place] [address] Noman Mayo MD [address] [facility] [place] [address] 08/19/2025 3:30 PM EDT Office Visit [facility] Neurology, A Department of [address] [place] [address] [place] [address] [place] [address] [address] [place] [address] documented as of this encounter Procedures Procedure Name Priority Date/Time Associated Diagnosis Comments MULTIPLE LABS Routine 01/21/2021 documented in this encounter Results * Multiple labs (01/21/2021) us Scanning Provider External ID IMAGING Final Result MANUALLY TRANSCRIBED RESULTS documented in this encounter Visit Diagnoses Not on filedocumented in this encounter Care Teams Data Entry Machine Operator Relationship Specialty Start Date End Date Eliceo Gómez Jr., [address] [place] [address], [address] [place] [address] PCP - General Family Medicine 12/11/19 Jenna Butler [address] Consulting Physician Behavioral Health 12/20/23 documented as of this encounter
--- OUTSIDE RECORDS SUMMARY | 2025-05-19 08:02 | XMS_ITS | Encounter Summary ---
Author Organization [facility] Address [address] [facility] [place] [address] Care Team Providers Care Dry Chain Worker Name Role Phone Eliceo Gómez DO Primary Care Provider [phone] Eliceo Gómez DO Unavailable [phone] Beata Hernandez Unavailable Juan Damico DO Unavailable [phone] Encounter Details Date Type Department Care Team (Late st Contact Info) Description 05/18/2023 Orders Only [facility] [address] [facility] [address] [place] [address] Provider, MD Pilo [address] [place] [address] Social History Tobacco Use Types Packs/Day [...] Recorded Patient Health Questionnaire-2 Score 0 04/06/2023 [facility] of Occupat ional Health - [...] DERM [address] [place] [address] Nelsy Harris, ADAPTIVE PHYSICAL EDUCATION TEACHER-TOP POLISHER [address] [place] [address] documented as of this encounter Procedures Procedure Name Priority Date/Time Associated Diagnosis Comments XR CHEST 1 VIEW Routine 05/18/2023 9:[address] FOOT RIGHT W CONTRAST [id number] Routine 05/18/2023 9:07 AM EDT XR FOOT 3+ VIEWS RIGHT Routine 05/18/2023 8:25 AM EDT documented in this encounter Results * XR chest 1 view (05/18/2023 9:19 AM EDT) Anatomical Region Laterality Modality Chest Radiographic Ira ging Historical Provider IMG XR PROCEDURES Final R esult * CT FOOT RIGHT W CONTRAST [id number] (05/18/2023 9:07 AM EDT) Anatomical Region Laterality Modality Radiographic Ira ging Historical Provider IMG XR PROCEDURES Final R esult * XR foot 3+ views right (05/18/2023 8:25 AM EDT) Anatomical Region Laterality Modality Lower Extremities, Foot Right Radiogra phic Imaging Historical Provider IMG XR PROCEDURES Final R esult documented in this encounter Visit Diagnoses Not on filedocumented in this encounter Care Teams Dry Chain Worker Relationship Specialty Start Date End Date Eliceo Gómez DO [address] [place] [address] PCP - General Family Medicine 04/04/23 Eliceo Gómez DO [address] [place] [address] PCP - [facility] 05/06/2310/05 Beata Hernandez PA [address] [place] [address] Dietitian Nutrition 08/08/23 05/16/24 Juan Damico DO [address] [place] [address] Referring Physician Obstetrics and Gynecology 05/20/24 documented as of this encounter
--- OUTSIDE RECORDS SUMMARY | 2025-05-19 08:02 | XMS_ITS | Encounter Summary ---
Author Organization [facility] Address [address] [place] [address] Care Team Providers Care Spar Machine Operator Helper Name Role Phone Eliceo Gómez DO Primary Care Provider [phone] Eliceo Gómez DO Unavailable [phone] Beata Hernandez Unavailable Juan Damico DO Unavailable [phone] Encounter Details Date Type Department Care Team [...] Recorded Patient Health Questionnaire-2 Score 0 07/06/2023 [facility] - Occupational Stress Questionnaire Answer [...] DERM [address] [place] [address] Nelsy Harris APRN-METALLURGY TEACHER [address] [place] [address] documented as of this encounter Procedures Procedure Name Priority Date/Time Associated Diagnosis Comments XR FOOT RT MIN 3V 08/03/2023 2:3 8 PM EDT documented in this encounter Results * XR FOOT RT MIN 3V (08/03/2023 2:38 PM EDT) Anatomical Region Laterality Modality Other 08/03/2023 2:38 PM EDT Narrative 08/03/2023 2:38 PM EDT [address] [address] XRay Report Signed Patient: MARY FUENTES MR#: [id number] : 1970 Acct:[id number] Age/Sex: 53 / F ADM Date: Loc: RAD Attending Dr: Sade Felix D.P.M. Ordering Physician: Sade Felix M.D. Date of Service: 08/03/23 Procedure(s): XR foot RT min 3V Accession Number(s): [id number] cc: Sade Felix M.D.; Isatu GÓMEZ [place] [address] Patient Name: MARY FUENTES MRN: [id number] date: 1970 Sex: F Assigned Patient Location: [facility] Current Patient Location: [facility] Accession/Order Number: [id number] Exam Date: 08/03/2023 13:35 Report Date: 08/03/2023 14:38 At the request of: SADE FELIX Procedure: XR foot RT min 3V STUDY: XR foot RT min 3V, [id number] HISTORY: RIGHT FOOT PAIN COMPARISON: Right foot [...] Signed By: 08/03/23 1441 DD/ 1438 TD/TT: Setter Cold Rolling Machine: Procedure Note Radiology, Radiologist, - 08/03/2023 [place] [address] XRay Report Signed Patient: MARY FUENTES DMR#: [id number] : 1970Acct:[id number] Age/Sex: 53 / FADM Date: Loc: RAD Attending Dr: Sade Felix D.P.M. Ordering Physician: Sade Felix M.D. Date of Service: 08/03/23 Procedure(s): XR foot RT min 3V Accession Number(s): [id number] cc: Sade Felix M.D.; Isatu GÓMEZ [place] [address] Patient Name: MARY FUENTES MRN: [id number] date: 1970 Sex: F Assigned Patient Location: [facility] Current Patient Location: [facility] Accession/Order Number: [id number] Exam Date: 08/03/2023 13:35 Report Date: 08/03/2023 14:38 At the request of: SADE FELIX Procedure: XR foot RT min 3V STUDY: XR foot RT min 3V, [id number] HISTORY: RIGHT FOOT PAIN COMPARISON: Right foot [...] Yang Signed By:08/03/23 1441 DD/ 1438 TD/TT: Setter Cold Rolling Machine: us Generic External Data Provider [facility] Final Result documented in this encounter Visit Diagnoses Not on filedocumented in this encounter Care Teams Spar Machine Operator Helper Relationship Specialty Start Date End Date Eliceo Gómez DO [address] [place] [address] PCP - General Family Medicine 04/04/23 Eliceo Gómez DO [address] [place] [address] PCP - [facility] 05/06/2310/05 Beata Hernandez PA [address] [place] [address] Dietitian Nutrition 08/08/23 05/16/24 Juan Damico DO [address] [place] [address] Referring Physician Obstetrics and Gynecology 05/20/24 documented as of this encounter
--- OUTSIDE RECORDS SUMMARY | 2025-05-19 08:03 | XMS_ITS | Encounter Summary ---
Author Organization [facility] Address [address] [place] [address] Care Team Providers Care Spout Tender Name Role Phone Eliceo Gómez DO Primary Care Provider [phone] Eliceo Gómez DO Unavailable [phone] Juan Damico DO Unavailable [phone] Encounter Details Date Type Department Care Team [...] DERM [address] [place] [address] Nelsy Harris, WEATHERIZATION DIRECTOR-CASINO FLOOR PERSON [address] [place] [address] documented as of this encounter Procedures Procedure Name Priority Date/Time Associated Diagnosis Comments XR FOOT RT MIN 3V 07/10/2024 6:5 9 AM EDT documented in this encounter Results * XR FOOT RT MIN 3V (07/10/2024 6:59 AM EDT) Anatomical Region Laterality Modality Other 07/10/2024 6:59 AM EDT Narrative 07/10/2024 7:02 AM EDT [address] [address] XRay Report Signed Patient: MARY FUENTES MR#: [id number] : 1970 Acct:[id number] Age/Sex: 54 / F ADM Date: 07/09/24 Loc: EC Attending Dr: Sade Felix D.P.M. Ordering Physician: Sade Felix D.P.M. Date of Service: 07/09/24 Procedure(s): XR foot RT min 3V Accession Number(s): [id number] cc: Sade Felix D.P.M.; Isatu GÓMEZ [address] [id number] Patient Name: MARY FUENTES MRN: [id number] date: 1970 Sex: F Assigned Patient Location: Current Patient Location: Accession/Order Number: [id number] Exam Date: 07/09/2024 10:00 Report Date: 07/10/2024 [...] Oliveros M.D. Signed By: 07/10/2402 DD/ TD/TT: Breast Worker: Procedure Note Radiology, Radiologist, MD - 07/10/2024 [place] [address] XRay Report Signed Patient: MARY FUENTES DMR#: [id number] : 1970Acct:[id number] Age/Sex: 54 / FADM Date: 07/09/24 Loc: Attending Dr: Sade Felix D.P.M. Ordering Physician: Sade Felix D.P.M. Date of Service: 07/09/24 Procedure(s): XR foot RT min 3V Accession Number(s): [id number] cc: Sade Felix D.P.M.; Isatu GÓMEZ [place] [address] Patient Name: MARY FUENTES MRN: [id number] date: 1970 Sex: F Assigned Patient Location: Current Patient Location: Accession/Order Number: [id number] Exam Date: 07/09/2024 10:00 Report Date: 07/10/2024 [...] Oliveros M.D. Signed By:07/10/24 0702 DD/ TD/TT: Breast Worker: Generic External Data Provider [facility] Final Result documented in this encounter Visit Diagnoses Not on filedocumented in this encounter Care Teams Spout Tender Relationship Specialty Start Date End Date Eliceo Gómez DO [address] [place] [address] PCP - General Family Medicine 04/04/23 Eliceo Gómez DO [address] [place] [address] PCP - [facility] 05/06/2310/05 Juan Damico DO [address] [place] [address] Referring Physician Obstetrics and Gynecology 05/20/24 documented as of this encounter
--- OUTSIDE RECORDS SUMMARY | 2025-05-19 08:03 | XMS_ITS | Encounter Summary ---
Author Organization [facility] Address [address] [facility] [place] [address] Care Team Providers Care Gaming Department Head Name Role Phone Eliceo Gómez DO Primary Care Provider [phone] Eliceo Gómez DO Unavailable [phone] Juan Damico DO Unavailable [phone] Encounter Details Date Type Department Care Team (Late st Contact Info) Description 05/27/2024 Abstract [facility] [address] [facility] 230 [place] [address] Eliceo Gómez DO [address] [facility] 230 [place] [address] Social History Tobacco Use Types Packs/Day Years [...] Recorded Patient Health Questionnaire-2 Score 0 05/14/2024 [facility] [place] of Occupat iondc Health - Occupational Stress Questionnaire Answer Date [...] any time in the past 12 m [facility], were you homeless or living [...] DERM [address] [place] [address] Nelsy Harris, SATELLITE COMMUNICATIONS ENGINEER-BUSINESS INTELLIGENCE REPORTING ANALYST [address] [place] [address] documented as of this encounter Visit Diagnoses Not on filedocumented in this encounter Care Teams Gaming Department Head Relationship Specialty Start Date End Date Eliceo Gómez, DO [address] [place] [address] PCP - General Family Medicine 04/04/23 Eliceo Gómez, DO [address] [place] [address] PCP - [facility] 05/06/2310/05 Juan Damico, DO [address] [place] [address] Referring Physician Obstetrics and Gynecology 05/20/24 documented as of this encounter
--- OUTSIDE RECORDS SUMMARY | 2025-05-19 08:03 | XMS_ITS | Encounter Summary ---
Author Organization [facility] Address [address] [facility] [place] [address] Care Team Providers Care Catshovel Driver Name Role Phone Eliceo Gómez DO Primary Care Provider [phone] Eliceo Gómez DO Unavailable [phone] Juan Damico DO Unavailable [phone] Encounter Details Date Type Department Care Team (Late st Contact Info) Description 07/10/2024 Abstract [facility] [address] [facility] 230 [place] [address] Eliceo Gómez DO [address] [facility] 230 [place] [address] Social History Tobacco Use Types Packs/Day Years [...] attend chur or oriental orthodox services? Never 05/01/2024 Do you belong [...] Recorded Patient Health Questionnaire-2 Score 0 07/11/2024 [facility] of Occupat ionfl Health - Occupational Stress [...] any time in the past 12 m [facility], were you homeless or living [...] 07/11/2024 9:44 AM EDT Janeth, Log an, METAL DRAWER Feeling down, depressed, or hopeless Not at all 07/11/2024 9:44 AM EDT Mikala Fowler LPN Patient Health Questionnaire-2 Score 0 07/11/2024 9:44 AM EDT Nicole Fowler LPN documented as of this encounter Plan of Treatment Upcoming Encounters Date Type Department Care Team (Late st Contact Info) Description 11/20/2025 8:30 AM EST Office Visit [facility]M [address] [place] [address] Nelsy Harris APRN-SINGLE END SEWER [address] [place] [address] documented as of this encounter Visit Diagnoses Not on filedocumented in this encounter Care Teams Catshovel Driver Relationship Specialty Start Date End Date Eliceo Gómez DO [address] [place] [address] PCP - General Family Medicine 04/04/23 Eliceo Gómez DO [address] [place] [address] PCP - [facility] 05/06/2310/05 Juan Damico DO [address] [place] [address] Referring Physician Obstetrics and Gynecology 05/20/24 documented as of this encounter
--- OUTSIDE RECORDS SUMMARY | 2025-05-19 08:03 | XMS_ITS | Encounter Summary ---
Author Organization [facility] Address [address] [place] [address] Care Team Providers Care Gas Controller Name Role Phone HernandezEliceo randolph Asiya DO Primary Care Provider [phone] Eliceo Gómez DO Unavailable [phone] Beata Hernandez Unavailable Juan Damico DO Unavailable [phone] Encounter Details Date Type Department Care Team (Late st Contact Info) Description 04/14/2023 Orders Only [facility] [address] [place] [address] Jacob Felix MD [address] [place] [address] [place] [address] Social History Tobacco Use Types Packs/Day Years [...] Patient Health Questionnaire-2 Score 0 04/06/2023 [facility] of Occupat ional Health - Occupational [...] a mcc (including now)? No 04/14/2023 Comments Unknown Sex [...] [address] [place] [address] Nelsy Harris, FACILITIES TECHNICIAN-DIALYSIS PATIENT CARE TECHNICIAN [address] [place] [address] documented as of this encounter Procedures Procedure [...] on filedocumented in this encounter Care Teams Gas Controller Relationship Specialty Start Date End Date Eliceo Gómez DO [address] [place] [address] PCP - General Family Medicine 04/04/23 Eliceo Gómez DO [address] [place] [address] PCP - [facility] 05/06/2310/05 Beata Hernandez PA [address] [place] [address] Dietitian Nutrition 08/08/23 05/16/24 Juan Damico DO [address] [place] [address] Referring Physician Obstetrics and Gynecology 05/20/24 documented as of this encounter
--- OUTSIDE RECORDS SUMMARY | 2025-05-19 08:03 | XMS_ITS | Encounter Summary ---
Author Organization [facility] Address [address] [facility] [place] [address] Care Team Providers Care Television Production Technician Name Role Phone Eliceo Gómez DO Primary Care Provider [phone] Eliceo Gómez DO Unavailable [phone] Juan Damico DO Unavailable [phone] Encounter Details Date Type Department Care Team (Late st Contact Info) Description 06/24/2024 Abstract [facility] [address] [facility] 230 [place] [address] Eliceo Gómez DO [address] [facility] 230 [place] [address] Social History Tobacco Use Types Packs/Day Years [...] Recorded Patient Health Questionnaire-2 Score 0 06/12/2024 [facility] of Occupat ionnv Health - Occupational Stress Questionnaire Answer Date [...] any time in the past 12 m [facility], were you homeless or living in a [...] DERM [address] [place] [address] Nelsy Harris, CT SCAN SPECIAL PROCEDURES TECHNOLOGIST-SHIP JOINER [address] [place] [address] documented as of this encounter Visit Diagnoses Not on filedocumented in this encounter Care Teams Television Production Technician Relationship Specialty Start Date End Date Eliceo Gómez, DO [address] [place] [address] PCP - General Family Medicine 04/04/23 Eliceo Gómez, DO [address] [place] [address] PCP - [facility] 05/06/2310/05 Juan Damico, DO [address] [place] [address] Referring Physician Obstetrics and Gynecology 05/20/24 documented as of this encounter
--- OUTSIDE RECORDS SUMMARY | 2025-05-19 08:03 | XMS_ITS | Encounter Summary ---
Author Organization [facility] Address [address] [facility] [place] [address] Care Team Providers Care Edger Feeder Name Role Phone Eliceo Gómez DO Primary Care Provider [phone] Eliceo Gómez DO Unavailable [phone] Juan Damico DO Unavailable [phone] Encounter Details Date Type Department Care Team (Late st Contact Info) Description 05/17/2024 Abstract [facility] [address] [facility] 230 [place] [address] Eliceo Gómez DO [address] [facility] 230 [place] [address] Social History Tobacco Use Types Packs/Day Years [...] you attend chur or adventist services? Never 05/01/2024 Do you belong to [...] Recorded Patient Health Questionnaire-2 Score 0 05/14/2024 [facility] [place] of Occupat ionin Health - Occupational Stress [...] in the past 12 m [facility], were you homeless or living in [...] [address] [place] [address] Nelsy Harris, BLOG WRITER-BALANCE WHEEL SCREW HOLE TAPPER [address] [place] [address] documented as of this encounter Visit Diagnoses Not on filedocumented in this encounter Care Teams Edger Feeder Relationship Specialty Start Date End Date Eliceo Gómez, DO [address] [place] [address] PCP - General Family Medicine 04/04/23 Eliceo Gómez, DO [address] [place] [address] PCP - [facility] 05/06/2310/05 Juan Damico, DO [address] [place] [address] Referring Physician Obstetrics and Gynecology 05/20/24 documented as of this encounter
--- OUTSIDE RECORDS SUMMARY | 2025-05-19 08:03 | XMS_ITS | Encounter Summary ---
Author Organization [employer] Address [id number] [address] [place] [address] Care Team Providers Care Security Threat Analyst Name Role Phone Dalia Morales DO, George R Primary Care Provider + Encounter Details Date Type Department Care Team (Late st Contact Info) Description 10/18/2023 [facility]phone [facility] [address] [place] [address] Kim Acharya RN Social History [...] I got a message from Yosef from [employer] [facility] about a denial for Inspire from [facility]. It was apparently denied because the med notes don't clarify why she stopped using the CPAP and they needed further clarification. We can do [id number] once we have the information. There is a string of telephone encounters in [facility] from 03/02/23, where we had recommended [...] documentation after call was ended. Will send mychart message with additional information needed. * Telephone Encounter - Kim Acharya RN - 10/18/2023 11:34 AM EST Patient responded to [employer] message stating that Dr. Todd Noe had [...] will draft appeal letter and fax to [employer] once completed. * Telephone Encounter - Kim Acharya RN - 10/18/2023 11:34 AM EST Appeal letter written and faxed to [employer] [facility] and appeals. Will wait response [...] Apnea Device. She can be reached at [phone] * Telephone Encounter - Kim Acharya RN - 10/18/2023 11:34 AM EST Called to check status of appeal but had to leave VM with department asking for call back regarding appeal. * Telephone Encounter - Kim Acharya RN - 10/18/2023 11:34 AM EST Received transferred call from Tracie at [employer]. She stated she does not see RN's appeal that was sent for Inspire on 10/19. RN verified fax # that was on letter that RN sent letter to. She stated she has a fax # to be sent that is [phone]. RN stated will try to refax letter to new fax #. She also provided secondary fax # of [phone]. RN faxed appeal to both #s listed above. Sent patient message via [employer] with update. Received fax confirmation on both #s * Telephone Encounter - Kim Acharya RN - 10/18/2023 11:34 AM EST RN received fax from [employer] stating that they received appeal for Inspire but it needs to be sent via mail. RN sent all appeal information to [employer] as listed on the fax and placed in outgoing mail. * Telephone Encounter - Kim Acharya RN - 10/18/2023 11:34 AM EST Received letter in mail from [employer] stating that it appears this is a post appeal dispute and needs to be sent to correct address . RN marked on letter that service has not been completed until approved so this is a pre service appeal and that was the address that appeal was sent to. Also marked that this needs to marked as urgent since [employer] has provided misinformation to our office on many occasions and we need to not delay patient care any further. * Telephone Encounter - Kim Acharya RN - 10/18/2023 11:34 AM EST RN had email from [employer] stating approval came through for device after faxing to # provided by rep for appeals. Letter scanned in under media. RN informed patient via [employer]. documented in this encounter Plan of Treatment Upcoming Encounters Date Type Department Care Team (Late st Contact Info) Description 06/06/2025 9:00 AM EDT Office Visit [facility] Care, A Department of [address] [place] [address] Vicki Roche DO [address] [place] [address], [address] [place] [address] Noman Mayo MD [address] [place] [address] [address] [place] [address] 08/19/2025 3:30 PM EDT Office Visit [facility] Neurology, A Department of [address], [address] [place] [address] Pauline Christensen MD [address] [place] [address] 101, 102, [address] [place] [address] documented as of this encounter Visit Diagnoses Not on filedocumented in this encounter Additional Health Concerns Assessment Noted Time PHQ-9 Depression Total Score: 0 01/27/20 23 1:28 PM EDT documented as of this encounter Care Teams Security Threat Analyst Relationship Specialty Start Date End Date Eliceo Gómez Jr., [address] [facility], [id number] [place] [address] PCP - General Family Medicine 12/11/19 Jenna Butler [address] Consulting Physician Behavioral Health 12/20/23 documented as of this encounter
--- OUTSIDE RECORDS SUMMARY | 2025-05-19 08:03 | XMS_ITS | Encounter Summary ---
Author Organization [employer] Address [id number] [address] [place] [address] Care Team Providers Care Auto Glass Technician Name Role Phone Dalia Morales DO, George R Primary Care Provider + Encounter Details Date Type Department Care Team (Late st Contact Info) Description 10/03/2023 [facility] [address] [place] [address] Kim Acharya RN Social History [...] to patient since he was contacted by [facility] stating patient was reaching out [...] Description 06/06/2025 9:00 AM EDT Office Visit [facility] Care, A Department of [address] [place] [address] Vicki Roche, [address] [facility], [address] [place] [address] Noman Mayo MD [address] [facility] [address] [place] [address] 08/19/2025 3:30 PM EDT Office Visit [facility] Neurology, A Department of [address], [address], [address] [place] [address] Pauline Christensen MD [address] [place] [address] 101, 102, [address] [place] [address] documented as of this encounter Visit Diagnoses Not on filedocumented in this encounter Additional Health Concerns Assessment Noted Time PHQ-9 Depression Total Score: 0 01/27/20 23 1:28 PM EDT documented as of this encounter Care Teams Auto Glass Technician Relationship Specialty Start Date End Date Eliceo Gómez Jr., DO [address] [place] [address], [address] [place] [address] PCP - General Family Medicine 12/11/19 Jenna Butler [address] Consulting Physician Behavioral Health 12/20/23 documented as of this encounter
--- OUTSIDE RECORDS SUMMARY | 2025-05-19 08:03 | XMS_ITS | Encounter Summary ---
Author Organization [facility] Address [address] [place] [address] Care Team Providers Care Hair Boiler Operator Name Role Phone Eliceo Gómez DO Primary Care Provider [phone] Eliceo Gómez DO Unavailable [phone] Beata Hernandez Unavailable Juan Damico DO Unavailable [phone] Encounter Details Date Type Department Care Team (Late st Contact Info) Description 01/24/2024 Abstract [facility] FM [address] [facility] [address] [place] [phone] Eliceo Gómez, DO [address] [facility] 230 [place] [address] Social History Tobacco Use Types Packs/Day Years [...] 0 10/03/2023 [facility] of Occupat ional Health - Occupational Stress [...] DERM [address] [place] [address] Nelsy Harris, SERVICE DESK SPECIALIST-BEET WORKER [address] [place], [place] [address] documented as of this encounter Visit Diagnoses Not on filedocumented in this encounter Care Teams Hair Boiler Operator Relationship Specialty Start Date End Date Eliceo Gómez DO [address] [place] [address] PCP - General Family Medicine 04/04/23 Eliceo Gómez DO [address] [place] [address] [facility] 05/06/2310/05 Beata Hernandez PA [address] [place] [address] Dietitian Nutrition 08/08/23 05/16/24 Juan Damico, [address] [place] [address] Referring Physician Obstetrics and Gynecology 05/20/24 documented as of this encounter
--- OUTSIDE RECORDS SUMMARY | 2025-05-19 08:03 | XMS_ITS | Encounter Summary ---
Author Organization [facility] [employer] [facility] tem Address [id number] [address] [place] [address] Care Team Providers Care Offset Assistant Press Operator Name Role Phone Dalia Morales DO, George R Primary Care Provider + Reason for Visit * Reason Onset Date Comments Pt wants to schedule surgery 11/24/2023 Encounter Details Date Type Department Care Team (Late st Contact Info) Description 11/24/2023 Telephone [facility] - ENT [address] [place] [address], [address] [place] [phone] Cullen Dawkins MD [address] [place] [address] [address] [place] [address] Pt wants to schedule surgery [...] Description 06/06/2025 9:00 AM EDT Office Visit [facility], Department of [address] [address] Vicki Roche DO [address] [place] [address], [address] [place] [address] Noman Mayo MD [address] [place] [address] 08/19/2025 3:30 PM EDT Office Visit [facility] Neurology, Department of [address] [place] [address] Pauline Christensen MD [address] [place] [address] 101, [address], [address] [place] [address] documented as of this encounter Visit Diagnoses Not on filedocumented in this encounter Additional Health Concerns Assessment Noted Time PHQ-9 Depression Total Score: 0 10/23/20 23 1:26 PM EST documented as of this encounter Care Teams Offset Assistant Press Operator Relationship Specialty Start Date End Date Eliceo Gómez Jr., DO [address] [place] [address], [address] [place] [address] PCP - General Family Medicine 12/11/19 Jenna Butelr [address] Consulting Physician Behavioral Health 12/20/23 documented as of this encounter
--- OUTSIDE RECORDS SUMMARY | 2025-05-19 08:03 | XMS_ITS | Encounter Summary ---
Author Organization [facility] Address [address] [facility] [place] [address] Care Team Providers Care Public Health Nutritionist Name Role Phone Eliceo Gómez DO Primary Care Provider [phone] Eliceo Gómez DO Unavailable [phone] Juan Damico DO Unavailable [phone] Encounter Details Date Type Department Care Team (Late st Contact Info) Description 05/29/2024 Abstract [facility] [address] [facility] 230 [place] [address] Eliceo Gómez DO [address] [facility] [address] [place] [address] Social History Tobacco Use Types Packs/Day Years [...] Recorded Patient Health Questionnaire-2 Score 0 05/14/2024 [facility] of Occupat ionnh Health - Occupational Stress [...] DERM [address] [place] [address] Nelsy Harris, ROLL MECHANIC-INCOMING FREIGHT CLERK [address] [place] [address] documented as of this encounter Visit Diagnoses Not on filedocumented in this encounter Care Teams Public Health Nutritionist Relationship Specialty Start Date End Date Eliceo Gómez, DO [address] [place] [address] PCP - General Family Medicine 04/04/23 Eliceo Gómez, DO [address] [place] [address] PCP - [facility] 05/06/2310/05 Juan Damico, DO [address] [place] [address] Referring Physician Obstetrics and Gynecology 05/20/24 documented as of this encounter
--- OUTSIDE RECORDS SUMMARY | 2025-05-19 08:03 | XMS_ITS | Encounter Summary ---
Author Organization [facility] Address [address] [place] [address] Care Team Providers Care Differential Specialist Name Role Phone Eliceo Gómez DO Primary Care Provider [phone] Eliceo Gómez DO Unavailable [phone] Juan Damico DO Unavailable [phone] Encounter Details Date Type Department Care Team [...] Recorded Patient Health Questionnaire-2 Score 0 06/12/2024 [facility] of [...] DERM [address] [place] [address] Nelsy Harris APRN-TUMBLER OPERATOR [address] [place] [address] documented as of this encounter Procedures Procedure Name Priority Date/Time Associated Diagnosis Comments XR FOOT RT MIN 3V 06/22/2024 12: 28 PM EDT documented in this encounter Results * XR FOOT RT MIN 3V (06/22/2024 12:28 PM EDT) Anatomical Region Laterality Modality Other 06/22/2024 12:2 8 PM EDT Narrative 06/22/2024 12:30 [place] [address] XRay Report Signed Patient: ELSIE FUENTES MR#: [id number] : 1970 Acct:[id number] Age/Sex: 54 / F ADM Date: 06/19/24 Loc: EC Attending Dr: Sade Felix D.P.M. Ordering Physician: Sade Felix D.P.M. Date of Service: 06/19/24 Procedure(s): XR foot RT min 3V Accession Number(s): [id number] cc: Sade Felix D.P.M.; Isatu GÓMEZ [place] [address] Patient Name: ELSIE FUENTES MRN: [id number] date: 1970 Sex: F Assigned Patient Location: Current Patient Location: [facility] Accession/Order Number: [id number] Exam Date: 06/19/2024 13:30 Report Date: 06/22/2024 [...] M.D. Signed By: 06/22/24 1230 DD/ TD/TT: Bull Fiddle Player: Procedure Note Radiology, Radiologist, - 06/22/2024 [place] [address] XRay Report Signed Patient: ELSIE FUENTES DMR#: [id number] : 1970Acct:[id number] Age/Sex: 54 / FADM Date: 06/19/24 Loc: EC Attending Dr: Sade Felix D.P.M. Ordering Physician: Sade Felix D.P.M. Date of Service: 06/19/24 Procedure(s): XR foot RT min 3V Accession Number(s): [id number] cc: Sade Felix D.P.M.; Isatu GÓMEZ [place] [address] Patient Name: ELSIE FUENTES MRN: [id number] date: 1970 Sex: F Assigned Patient Location: Current Patient Location: [facility] Accession/Order Number: [id number] Exam Date: 06/19/2024 13:30 Report Date: 06/22/2024 [...] M.D. Signed By:06/22/24 1230 DD/ 27 TD/TT: Bull Fiddle Player: Generic External Data Provider [facility] Final Result documented in this encounter Visit Diagnoses Not on filedocumented in this encounter Care Teams Differential Specialist Relationship Specialty Start Date End Date Eliceo Gómez DO [address] [place] [address] PCP - General Family Medicine 04/04/23 Eliceo Gómez DO [address] [place] [address] PCP - [facility] 05/06/2310/05 Juan Damico DO [address] [place] [address] Referring Physician Obstetrics and Gynecology 05/20/24 documented as of this encounter
--- OUTSIDE RECORDS SUMMARY | 2025-05-19 08:03 | XMS_ITS | Clinical Summary ---
Author Organization [facility] Address [address] [place] [address] Care Team Providers Care Chucking Machine Operator Name Role Phone Eliceo Gómez DO Primary Care Provider [phone] Eliceo Gómez DO Unavailable [phone] Juan Damico DO Unavailable [phone] Allergies Active Allergy Reactions Criticality Noted Date [...] 11/04/20 24 Active atenolol (Tenormin) 50 MG tabletIndication s:Hypertension, unspecified type Take 1 tablet (50 mg) by mouth Daily 90 tablet 1 11/27/19 25 07/21/2 025 Active ARIPiprazole ER (Abilify) 400 MG injection Inject 400 mg into the shoulder, thigh, or buttocks 1 (one) time Active cyproheptadine (Periactin) 4 MG tablet Take 4 mg by mouth as needed at bedtime 01/10/20 25 Active omeprazole (PriLOSEC) [address] capsuleIndicatio ns:Gastro-esopha geal reflux disease without esophagitis Take 1 capsule (40 mg) by mouth in the morning. 90 capsule 3 01/21/20 25 Active rOPINIRole (Requip) 2 MG tabletIndication s:Restless legs syndrome Take 1 tablet (2 mg) by mouth at bedtime 01/21/20 25 Active fluticasone (Flonase) 50 MCG/ACT nasal sprayIndications [...] DAY FOR 30 DAYS 01/03/20 25 Active lisdexamfetamine (Vyvanse) 60 MG capsule 01/09/20 25 Active Trelegy Ellipta 100-62.5-25 MCG/ACT aerosol powderIndication s:Mild intermittent asthma, unspecified whether complicated (HCC) INHALE 1 PUFF BY MOUTH DAILY 60 each 1 02/06/20 25 Active rOPINIRole (Requip) 1 MG tabletIndication s:Restless legs syndrome Take 1 tablet (1 mg) by mouth in the morning and 1 tablet (1 mg) before bedtime. 60 tablet 5 02/07/20 25 Active estradiol (Estrace) 0.1 MG/GM vaginal creamIndications :Hormone replacement therapy,Dyspareu estela in female Apply 0.5g vaginally twice weekly. 42.5 g 04/11/20 25 Active triamcinolone (Kenalog) 0.1 % creamIndications :Erythema APPLY TO AFFECTED AREA TWICE A DAY 45 g 1 04/14/20 25 Active albuterol HFA 90 mcg/act inhalerIndicatio ns:Mild intermittent asthma, unspecified whether complicated (HCC) INHALE 2 PUFFS EVERY 4 HOURS IF NEEDED FOR WHEEZING. 18 g 1 04/14/20 25 Active losartan (Cozaar) 50 MG tabletIndication s:Hypertension, unspecified type TAKE 1 TABLET BY MOUTH EVERY DAY 90 tablet 1 05/12/20 25 Active losartan (Cozaar) 50 MG tabletIndication s:Hypertension, unspecified type Take 1 tablet (50 mg) by mouth Daily 30 tablet 5 01/21/20 25 025 Discontinued Active Problems Problem Noted [...] Encounters Date Type Department Care Team Description 05/10/2025 Refill [facility] [address] [place] [address] Eliceo Gómez, DO Hypertension, unspecified type 04/30/2025 Abstract [facility] [address] [place] [address] Eliceo Gómez, 04/13/2025 Refill [facility] FM [address] [place] [address] Hyacinth King, DEMARCUS Mild intermittent asthma, unspecified whether complicated (HCC) 04/13/2025 Refill [facility] [address] [place] [address] Juan Damico, Erythema 04/10/2025 Refill [facility] [address] [place] [address] Nereyda Murphy LPN Hormone replacement therapy; Dyspareunia in female 04/02/2025 Abstract [facility] [address] [place] [address] Eliceo Gómez, DO 03/17/2025 Abstract [facility] [address] [place] [address] Eliceo Gómez, DO 03/06/2025 Travel 03/06/2025 Abstract [facility] [address] [place] [address] Eliceo Gómez, DO 02/25/2025 Telephone [facility] [address] [place] [address] Eliceo Gómez, DO right ear 02/24/2025 Telephone [facility] OB [address] [place] [address] Juan Damico, DO 02/20/2025 Telephone [facility] [address] [place] [address] Eliceo Gómez, DO from Last 3 Months Immunizations Immunization Administration [...] often do you attend chur ch or quaker services? Never 05/01/2024 Do you belong to [...] Recorded Patient Health Questionnaire-2 Score 0 01/20/2025 [facility] of Occupat ional [facility] - [...] any time in the past 12 m onths, were you homeless or living in a [...] DERM [address] [place] [address] Nelsy Harris APRN-ENVIRONMENTAL SERVICES AIDE [address] [place] [address] Health Maintenance Due Date Last Done Comments [...] has been evaluated with computer assisted technology. CAR CLEANING SUPERVISOR QUEST Comment: EMP, CT(ASCP) CT screening location: [facility], [address] [place] [address]. (ALWAYS MESSAGE) [facility] Comment: EXPLANATORY NOTE: The [...] Performing Organization Information Site ID: [id number] Name: [facility] Address: [address] [place] [id number] Director: Gopal Hamilton MD us Juan Damico DO LAB CYTOLOGY ORDERABLES Emilie omayra Result [facility] * Bilateral screening mammogram with [...] IMPORTANT TO YOUR HEALTH. THE TAIWANESE CANCER SOCIETYGUIDELINES RECOMMEND THAT WOMEN 40 YEARS [...] Narrative 03/20/2020 12:00 AM EDT PERFORMED AT [facility] LOCATION:[place] [address] Procedure Note CONVERSION, GENERIC - 03/22/2023 PERFORMED AT [facility] LOCATION:[place] [address] Eliceo Gómez DO ENDOSCOPY PROCEDURE ORDERABLE S Final Result * OCC BLD IMMUNOASSAY (03/13/2020) [facility] Signature OCCULT BLOOD NEGATIVE NEGATIVE [facility] PERFORMING LAB: see note [facility] Comment:[address] Laboratory - Brand Ambassador Makenna Flores,[place] [address] ,Ext. [phone] 03/13/2020 Eliceo Gómez DO [facility] LABS Final Result [facility] from Last 3 Months or Most Recently Relevant to Health Maintenance Insurance MEDICARE MEDICAID [place] [employer] MEDICARE Care Teams Chucking Machine Operator Relationship Specialty Start Date End Date Eliceo Gómez DO [address] [place] [address] PCP - General Family Medicine 04/04/23 Eliceo Gómez DO [address] [place] [address] PCP - [facility] 05/06/2310/05 Juan Damico DO [address] [place] [address] Referring Physician Obstetrics and Gynecology 05/20/24
--- OUTSIDE RECORDS SUMMARY | 2025-05-19 08:03 | XMS_ITS | Encounter Summary ---
Author Organization [facility] Address [address] [place] [address] Care Team Providers Care Kitchenwhere Maker Name Role Phone Eliceo Gómez DO Primary Care Provider [phone] Eliceo Gómez DO Unavailable [phone] Beata Hernandez Unavailable Juan Damico DO Unavailable [phone] Encounter Details Date Type Department Care Team [...] any clubs o r organizations such as buddhist groups, unions, fraternal or athletic groups, or [...] Questionnaire-2 Score 0 03/14/2024 [facility] - Occupational Stress Questionnaire Answer Date Recorded [...] DERM [address] [place] [address] Nelsy Harris APRN-BOTTLE CLEANER [address] [place] [address] documented as of this encounter Procedures Procedure Name Priority Date/Time Associated Diagnosis Comments XR FOOT RT MIN 3V 04/17/2024 1:1 7 PM EDT documented in this encounter Results * XR FOOT RT MIN 3V (04/17/2024 1:17 PM EDT) Anatomical Region Laterality Modality Other 04/17/2024 1:17 PM EDT Narrative 04/17/2024 1:20 PM EDT The [address] [address] XRay Report Signed Patient: ELSIE FUENTES MR#: [id number] : 1970 Acct:[id number] Age/Sex: 53 / F ADM Date: 04/17/24 Loc: EC Attending Dr: Sade Felix D.P.M. Ordering Physician: Sade Felix D.P.M. Date of Service: 04/17/24 Procedure(s): XR foot RT min 3V Accession Number(s): [id number] cc: Sade Felix D.P.M.; Isatu GÓMEZ The [place] [address] Patient Name: ELSIE FUENTES MRN: [id number] date: 1970 Sex: F Assigned Patient Location: Current Patient Location: Accession/Order Number: [id number] Exam Date: 04/17/2024 11:50 Report Date: 04/17/2024 [...] Signed By: 04/17/24 1320 DD/ 1317 TD/TT: Bookmaker Map: Procedure Note Radiology, Radiologist, MD - 04/17/2024 [place] [address] XRay Report Signed Patient: ELSIE FUENTES DMR#: [id number] : 1970Acct:[id number] Age/Sex: 53 / FADM Date: 04/17/24 Loc: EC Attending Dr: Sade Felix D.P.M. Ordering Physician: Sade Felix D.P.M. Date of Service: 04/17/24 Procedure(s): XR foot RT min 3V Accession Number(s): [id number] cc: Sade Felix D.P.M.; Isatu GÓMEZ [place] [address] Patient Name: ELSIE FUENTES MRN: [id number] date: 1970 Sex: F Assigned Patient Location: Current Patient Location: Accession/Order Number: [id number] Exam Date: 04/17/2024 11:50 Report Date: 04/17/2024 [...] M.D. Signed By:04/17/24 1320 DD/ 1317 TD/TT: Bookmaker Map: us Generic External Data Provider [facility] Final Result documented in this encounter Visit Diagnoses Not on filedocumented in this encounter Care Teams Kitchenwhere Maker Relationship Specialty Start Date End Date Eliceo Gómez DO [address] [place] [address] PCP - General Family Medicine 04/04/23 Eliceo Gómez DO [address] [place] [address] [facility] 05/06/2310/05 Beata Hernandez PA [address] [place] [address] Dietitian Nutrition 08/08/23 05/16/24 Juan Damico DO [address] [place] [address] Referring Physician Obstetrics and Gynecology 05/20/24 documented as of this encounter
--- OUTSIDE RECORDS SUMMARY | 2025-05-19 08:03 | XMS_ITS | Encounter Summary ---
Author Organization [facility] Address [address] [facility] [place] [address] Care Team Providers Care Test Engineer Name Role Phone Eliceo Gómez DO Primary Care Provider [phone] Eliceo Gómez DO Unavailable [phone] Juan Damico DO Unavailable Encounter Details Date Type Department Care Team (Late st Contact Info) Description 06/20/2024 Abstract [facility] [address] [facility] [address] [place] [address] Eliceo Gómez DO [address] [facility] [address] [place] [address] Social History Tobacco Use Types Packs/Day Years [...] Recorded Patient Health Questionnaire-2 Score 0 06/12/2024 [facility] of Occupat ionmt Health - Occupational Stress [...] DERM [address] [place] [address] Nelsy Harris, TYPE PROOF REPRODUCER-ONCOLOGY SOCIAL WORKER [address] [place] [address] documented as of this encounter Visit Diagnoses Not on filedocumented in this encounter Care Teams Test Engineer Relationship Specialty Start Date End Date Eliceo Gómez, DO [address] [place] [address] PCP - General Family Medicine 04/04/23 Eliceo Gómez, DO [address] [place] [address] PCP - [facility] 05/06/2310/05 Juan Damico, DO [address] [place] [address] Referring Physician Obstetrics and Gynecology 05/20/24 documented as of this encounter
--- OUTSIDE RECORDS SUMMARY | 2025-05-19 08:03 | XMS_ITS | Encounter Summary ---
Author Organization [email or web address] Address [id number] [address] [place] [address] Care Team Providers Care Lead Manufacturing Technician Name Role Phone Dalia Morales DO, George R Primary Care Provider + Reason for Visit * Reason Onset Date Comments [place]ita [place] 01/30/2023 Encounter Details Date Type Department Care Team (Late st Contact Info) Description 01/30/2023 Telephone [facility] Physicians Neurology [address] [place] [address] Kim Acharya, MAKI Potts [place] Social History Tobacco Use Types Packs/Day [...] - 01/30/2023 8:18 AM EDT PA for Laviniate started on CMM Art: [id number] faxed to plan , waiting a response documented in this encounter Plan of Treatment Upcoming Encounters Date Type Department Care Team (Late st Contact Info) Description 06/06/2025 9:00 AM EDT Office Visit [facility] A Department of [address] [phone] Vicki Roche, [address] [place] [address], [address] [place], [place] [phone] Noman Mayo MD [address] [place] [address] [address] [place] [address] 08/19/2025 3:30 PM EDT Office Visit [facility] Neurology, Department of [address] [place] [address] Pauline Christensen MD [address] [place] [address] 101, 102, [address] [place] [address] documented as of this encounter Visit Diagnoses Not on filedocumented in this encounter Additional Health Concerns Assessment Noted Time PHQ-9 Depression Total Score: 0 01/27/20 1:28 PM EDT documented as of this encounter Care Teams Lead Manufacturing Technician Relationship Specialty Start Date End Date Eliceo Gómez Jr., DO [address] [facility], [address], [place] [address] PCP - General Family Medicine 12/11/19 Jenna Butler 60[address] [facility] [address] [place] Consulting Physician Behavioral Health 12/20/23 documented as of this encounter
--- OUTSIDE RECORDS SUMMARY | 2025-05-19 08:03 | XMS_ITS | Encounter Summary ---
Author Organization [facility] Address [address] [place] [address] Care Team Providers Care Trouble Operator Name Role Phone Eliceo Gómez DO Primary Care Provider [phone] Eliceo Gómez DO Unavailable [phone] Beata Hernandez Unavailable Juan Damico DO Unavailable [phone] Encounter Details Date Type Department Care Team [...] any clubs o r organizations such as gnosticism groups, unions, fraternal or athletic groups, or [...] 0 10/03/2023 [facility] - Occupational Stress Questionnaire Answer Date Recorded [...] DERM [address] [place] [address] Nelsy Harris APRN-PROGRAMMING DIRECTOR [address] [place] [address] documented as of this encounter Procedures Procedure Name Priority Date/Time Associated Diagnosis Comments XR FOOT RT MIN 3V 02/29/2024 6:3 7 AM EDT documented in this encounter Results * XR FOOT RT MIN 3V (02/29/2024 6:37 AM EDT) Anatomical Region Laterality Modality Other 02/29/2024 6:37 AM EDT Narrative 02/29/2024 6:40 AM EDT The [address] [address] XRay Report Signed Patient: MARY FUENTES MR#: [id number] : 1970 Acct:[id number] Age/Sex: 53 / F ADM Date: 02/28/24 Loc: EC Attending Dr: Sade Felix D.P.M. Ordering Physician: Sade Felix D.P.M. Date of Service: 02/28/24 Procedure(s): XR foot RT min 3V Accession Number(s): [id number] cc: Sade Felix D.P.M.; Isaut GÓMEZ The [place] [id number] Patient Name: MARY FUENTES MRN: [id number] date: 1970 Sex: F Assigned Patient Location: Current Patient Location: Accession/Order Number: [id number] Exam Date: 02/28/2024 09:13 Report Date: 02/29/2024 [...] Oliveros M.D. Signed By: 02/29/2440 DD/ TD/TT: Paper Folder: Procedure Note Radiology, Radiologist, MD - 02/29/2024 [place] [address] XRay Report Signed Patient: MARY FUENTES DMR#: [id number] : 1970Acct:[id number] Age/Sex: 53 / FADM Date: 02/28/24 Loc: EC Attending Dr: Sade Felix D.P.M. Ordering Physician: Sade Felix D.P.M. Date of Service: 02/28/24 Procedure(s): XR foot RT min 3V Accession Number(s): [id number] cc: Sade Felix D.P.M.; Isatu GÓMEZ [place] [address] Patient Name: MARY FUENTES MRN: [id number] date: 1970 Sex: F Assigned Patient Location: EC Current Patient Location: Accession/Order Number: [id number] Exam Date: 02/28/2024 09:13 Report Date: 02/29/2024 [...] Adam Oliveros M.D. Signed By:02/29/2440 DD/ TD/TT: Paper Folder: us Generic External Data Provider [facility] Final Result documented in this encounter Visit Diagnoses Not on filedocumented in this encounter Care Teams Trouble Operator Relationship Specialty Start Date End Date Eliceo Gómez DO [address] [place] [address] PCP - General Family Medicine 04/04/23 Eliceo Gómez DO [address] [place] [address] PCP - [facility] 05/06/2310/05 Beata Hernandez PA [address] [place] [address] Dietitian Nutrition 08/08/23 05/16/24 Juan Damico, DO [address] [place] [address] Referring Physician Obstetrics and Gynecology 05/20/24 documented as of this encounter
--- OUTSIDE RECORDS SUMMARY | 2025-05-19 08:03 | XMS_ITS | Encounter Summary ---
Author Organization [facility] Address [address] [place] [address] Care Team Providers Care Traffic Circuit Engineer Name Role Phone Eliceo Gómez DO Primary Care Provider Eliceo Gómez DO Unavailable [phone] Beata Hernandez Unavailable Juan Damico DO Unavailable [phone] Encounter Details Date Type Department Care Team (Late st Contact Info) Description 03/04/2024 Abstract [facility] [address] [facility] [address] [place] [address] lEiceo Gómez, DO [address] [facility] [address] [place] [address] Social History Tobacco Use Types Packs/Day Years [...] you attend chur or evangelical services? Never 04/14/2023 Do you belong to [...] Recorded Patient Health Questionnaire-2 Score 0 10/03/2023 [facility] of [...] DERM [address] [place] [address] Nelsy Harris, HEADER BOSS-MEDICAL ASSEMBLY [address] [place], [place] [address] documented as of this encounter Visit Diagnoses Not on filedocumented in this encounter Care Teams Traffic Circuit Engineer Relationship Specialty Start Date End Date Eliceo Gómez DO [address] [place] [address] PCP - General Family Medicine 04/04/23 Eliceo Gómez DO [address] [place] [address] [facility] 05/06/2310/05 Beata Hernandez PA [address] [place] [address] Dietitian Nutrition 08/08/23 05/16/24 Juan Damico, [address] [place] [address] Referring Physician Obstetrics and Gynecology 05/20/24 documented as of this encounter
--- OUTSIDE RECORDS SUMMARY | 2025-05-19 08:03 | XMS_ITS | Encounter Summary ---
Author Organization [facility] Address [address] [place] [address] Care Team Providers Care Qualitative Field Project Manager Name Role Phone HernandezEliceo randolph Asiya DO Primary Care Provider [phone] Eliceo Gómez DO Unavailable [phone] Beata Hernandez Unavailable Juan Damico DO Unavailable [phone] Encounter Details Date Type Department Care Team (Late st Contact Info) Description 04/13/2023 Orders Only [facility] [address] [place] [address] Jacob Felix MD [address] [place] [address] [place] [address] Social History Tobacco Use Types Packs/Day Years [...] a long-term (including now)? No 04/14/2023 Comments Unknown Sex [...] [address] [place] [address] Nelsy Harris, BRIDGE CREW MEMBER-ROUTE SALES DRIVER [address] [place] [address] documented as of this encounter Procedures Procedure [...] on filedocumented in this encounter Care Teams Qualitative Field Project Manager Relationship Specialty Start Date End Date Eliceo Gómez DO [address] [place] [address] PCP - General Family Medicine 04/04/23 Eliceo Gómez DO [address] [place] [address] PCP - [facility] 05/06/2310/05 Beata Hernandez PA [address] [place] [address] Dietitian Nutrition 08/08/23 05/16/24 Juan Damico DO [address] [place] [address] Referring Physician Obstetrics and Gynecology 05/20/24 documented as of this encounter
--- OUTSIDE RECORDS SUMMARY | 2025-05-19 08:03 | XMS_ITS | Encounter Summary ---
Author Organization [facility] Address [address] [facility] [place] [address] Care Team Providers Care Cascade Operator Name Role Phone Eliceo Gómez DO Primary Care Provider [phone] Eliceo Gómez DO Unavailable [phone] Juan Damico DO Unavailable [phone] Encounter Details Date Type Department Care Team (Late st Contact Info) Description 05/27/2024 Abstract [facility] FM [address] [facility] [address] [place] [address] Eliceo Gómez DO [address] [facility] [address] [place] [address] Social History Tobacco Use Types Packs/Day Years [...] Recorded Patient Health Questionnaire-2 Score 0 05/14/2024 [facility] of Occupat ionct Health - Occupational Stress Questionnaire Answer Date [...] any time in the past 12 m [facility], were you homeless or [...] DERM [address] [place] [address] Nelsy Harris, SERVICE LINE BUS CLEANER-SENIOR JAVA ARCHITECT [address] [place] [address] documented as of this encounter Visit Diagnoses Not on filedocumented in this encounter Care Teams Cascade Operator Relationship Specialty Start Date End Date Eliceo Gómez, DO [address] [place] [address] PCP - General Family Medicine 04/04/23 Eliceo Gómez, DO [address] [place] [address] PCP - [facility] 05/06/2310/05 Juan Damico, DO [address] [place] [address] Referring Physician Obstetrics and Gynecology 05/20/24 documented as of this encounter
--- OUTSIDE RECORDS SUMMARY | 2025-05-19 08:03 | XMS_ITS | Encounter Summary ---
Author Organization [employer] Address [facility] [place] [id number] [address] [place] [address] Care Team Providers Care Property Consultant Name Role Phone Dalia Morales DO, George R Primary Care Provider + Encounter Details Date Type Department Care Team (Late st Contact Info) Description 07/11/2023 Telephone [facility] [address] [address] Cullen Dawknis MD [address] [place] [address] [address] [place] [id number] Social History Tobacco Use Types Packs/Day Years [...] MAC Surgery Time: 30 minutes Facility Preference: [facility] Destination: Outpatient When should patient follow up after surgery? 1-2 weeks Additional Comments: Yosef Horowitz documented in this encounter Plan of Treatment Upcoming Encounters Date Type Department Care Team (Late st Contact Info) Description 06/06/2025 9:00 AM EDT Office Visit [facility], A Department of [address] [place] [address] Vicki Roche DO [address] [place] [address], [address] [place] [address] Noman Mayo MD [address] [place] [address] [address] [place] [address] 08/19/2025 3:30 PM EDT Office Visit [facility] Neurology, Department of [address], [address] [place] [address] Pauline Christensen MD [address] [place] [address] 101, 102, [address] [place] [address] documented as of this encounter Visit Diagnoses Not on filedocumented in this encounter Additional Health Concerns Assessment Noted Time PHQ-9 Depression Total Score: 0 01/27/20 23 1:28 PM EDT documented as of this encounter Care Teams Property Consultant Relationship Specialty Start Date End Date Eliceo Gómez Jr., DO [address] [place] [address], [address], [place] [address] PCP - General Family Medicine 12/11/19 Jenna Butler [address] Consulting Physician Behavioral Health 12/20/23 documented as of this encounter
--- OUTSIDE RECORDS SUMMARY | 2025-05-19 08:03 | XMS_ITS | Encounter Summary ---
Author Organization [facility] Address [address] [place] [address] Care Team Providers Care Learning Support Specialist Name Role Phone Eliceo Gómez DO Primary Care Provider [phone] Eliceo Gómez DO Unavailable [phone] Beata Hernandez Unavailable Juan Damico DO Unavailable [phone] Encounter Details Date Type Department Care Team (Late st Contact Info) Description 05/22/2023 Orders Only [facility] [address] [place] [address] Eliceo Gómez, DO [address] [place] [address] Social History Tobacco Use Types Packs/Day Years [...] Patient Health Questionnaire-2 Score 0 04/06/2023 [facility] of Occupat ional [...] [address] [place] [address] Nelsy Harris APRN-VULCANIZER RUBBER PLATE [address] [place] [address] documented as of this encounter [...] on filedocumented in this encounter Care Teams Learning Support Specialist Relationship Specialty Start Date End Date Eliceo Gómez DO [address] [place] [address] PCP - General Family Medicine 04/04/23 Eliceo Gómez DO [address] [place] [address] PCP - [facility] 05/06/2310/05 Beata Hernandez PA [address] [place] [address] Dietitian Nutrition 08/08/23 05/16/24 Juan Damico DO [address] [place] [address] Referring Physician Obstetrics and Gynecology 05/20/24 documented as of this encounter
--- OUTSIDE RECORDS SUMMARY | 2025-05-19 08:03 | XMS_ITS | Encounter Summary ---
Author Organization [facility] Address [address] [facility] [place] [address] Care Team Providers Care Housekeeper Manager Name Role Phone Eliceo Gómez DO Primary Care Provider [phone] Eliceo Gómez DO Unavailable [phone] Beata Hernandez Unavailable Juan Damico DO Unavailable [phone] Encounter Details Date Type Department Care Team (Late st Contact Info) Description 05/19/2023 Orders Only [facility] [address] [place] [address] Provider, MD Pilo [address] [place] [address] Social History Tobacco Use Types Packs/Day [...] often do you attend chur ch or protestant services? Never 04/14/2023 Do you [...] Patient Health Questionnaire-2 Score 0 04/06/2023 [facility] of Occupat ional Health [...] DERM [address] [place] [address] Nelsy Harris, HAZARDOUS MATERIALS TANKER DRIVER-PLATE CLEANER [address] [place] [address] documented as of this encounter [...] on filedocumented in this encounter Care Teams Housekeeper Manager Relationship Specialty Start Date End Date Eliceo Gómez, DO [address] [place] [address] PCP - [facility] Medicine 04/04/23 Eliceo Gómez DO [address] [place] [address] PCP - [facility] 05/06/2310/05 Beata Hernandez PA [address] [place] [address] Dietitian Nutrition 08/08/23 05/16/24 Juan Damico DO [address] [place] [address] Referring Physician Obstetrics and Gynecology 05/20/24 documented as of this encounter
--- OUTSIDE RECORDS SUMMARY | 2025-05-19 08:03 | XMS_ITS | Encounter Summary ---
Author Organization [employer] Address [id number] [address] [place] [address] Care Team Providers Care Shoe Fitter Name Role Phone Dalia Morales DO, George R Primary Care Provider + Encounter Details Date Type Department Care Team (Late st Contact Info) Description 12/26/2023 Telephone [facility] [address] [place] [address] April Mccarty Social History Tobacco [...] 12/26/2023 12:28 PM EST Patient also sent [employer] message regarding the matter. RN sent on [...] down. Please call back and advise, callback#: [phone]. * Telephone Encounter - Pauline Christensen MD - 12/26/2023 12:28 PM EST I will have Yosef the Inspire Rep call her. Thank you documented in this encounter Plan of Treatment Upcoming Encounters Date Type Department Care Team (Late st Contact Info) Description 06/06/2025 9:00 AM EDT Office Visit [facility], A Department of [address] [place] [address] Vicki Roche DO [address] [facility], [address] [place] [address] Noman Mayo MD [address] [facility], [facility] [address] [place] [address] 08/19/2025 3:30 PM EDT Office Visit [facility] [address] [place] [address] Pauline Christensen MD [address] [place] [address] 101, 102, [address] [place] [address] documented as of this encounter Visit Diagnoses Not on filedocumented in this encounter Additional Health Concerns Assessment Noted Time PHQ-9 Depression Total Score: 0 10/23/20 23 1:26 PM EST documented as of this encounter Care Teams Shoe Fitter Relationship Specialty Start Date End Date Eliceo Gómez Jr., [address] [place] [address], [address] [address] PCP - General Family Medicine 12/11/19 Jenna Butler [address] [place] [address] Consulting Physician Behavioral Health 12/20/23 documented as of this encounter
--- OUTSIDE RECORDS SUMMARY | 2025-05-19 08:03 | XMS_ITS | Encounter Summary ---
Author Organization [facility] Address [address] [facility] [place] [address] Care Team Providers Care Collar Stay Fuser Tender Name Role Phone Eliceo Gómez DO Primary Care Provider [phone] Eliceo Gómez DO Unavailable [phone] Juan Damico DO Unavailable [phone] Encounter Details Date Type Department Care Team (Late st Contact Info) Description 05/29/2024 Abstract [facility] [address] [facility] [address] [place] [address] Eliceo Gómez DO [address] [facility] [address] [place] [address] Social History Tobacco Use Types Packs/Day Years [...] Recorded Patient Health Questionnaire-2 Score 0 05/14/2024 [facility] of Occupat ionmi Health - Occupational Stress Questionnaire Answer Date [...] DERM [address] [place] [address] Nelsy Harris, SECURITY REP-AVIATION MECHANIC [address] [place] [address] documented as of this encounter Visit Diagnoses Not on filedocumented in this encounter Care Teams Collar Stay Fuser Tender Relationship Specialty Start Date End Date Eliceo Gómez, DO [address] [place] [address] PCP - General Family Medicine 04/04/23 Eliceo Gómez, DO [address] [place] [address] PCP - [facility] 05/06/2310/05 Juan Damico, DO [address] [place] [address] Referring Physician Obstetrics and Gynecology 05/20/24 documented as of this encounter
--- OUTSIDE RECORDS SUMMARY | 2025-05-19 08:03 | XMS_ITS | Encounter Summary ---
Author Organization [facility] Address [address] [facility] [place] [address] Care Team Providers Care Police Clerk Name Role Phone Eliceo Góemz DO Primary Care Provider [phone] Eliceo Gómez DO Unavailable [phone] Juan Damico DO Unavailable [phone] Encounter Details Date Type Department Care Team (Late st Contact Info) Description 07/10/2024 Abstract [facility] [address] [facility] 230 [place] [address] Eliceo Gómez DO [address] [facility] [address] [place] [address] Social History Tobacco Use Types Packs/Day Years [...] you attend chur or congregation services? Never 05/01/2024 Do you belong to [...] Recorded Patient Health Questionnaire-2 Score 0 07/11/2024 [facility] of Occupat ionwy Health - Occupational Stress [...] 07/11/2024 9:44 AM EDT Janeth, Log an, SENIOR MARKETING ANALYST Feeling down, depressed, or hopeless Not at [...] [address] [place] [address] Nelsy Harris APRN-GUN NUMBER [address] [place] [address] documented as of this encounter Visit Diagnoses Not on filedocumented in this encounter Care Teams Police Clerk Relationship Specialty Start Date End Date Eliceo Gómez DO [address] [place] [address] PCP - General Family Medicine 04/04/23 Eliceo Gómez DO [address] [place] [address] PCP - [facility] 05/06/2310/05 Juan Damico DO [address] [place] [address] Referring Physician Obstetrics and Gynecology 05/20/24 documented as of this encounter
--- OUTSIDE RECORDS SUMMARY | 2025-05-19 08:03 | XMS_ITS | Encounter Summary ---
Author Organization [employer] [facility] Address [id number] [address] [place] [address] Care Team Providers Care Wood Heel Flap Inserter Name Role Phone Dalia Morales DO, George R Primary Care Provider + Encounter Details Date Type Department Care Team (Late st Contact Info) Description 09/19/2023 Telephone [facility] - [address] [place] [address] Cullen Dawkins MD [address] [place] [address] [address] [place] [address] Social History Tobacco Use Types Packs/Day Years [...] Description 06/06/2025 9:00 AM EDT Office Visit [facility], A Department of [address] [phone] [place] [address] [place] [address], [address] [place] [address] Noman Mayo MD [address] [place] [address] [address] [place] [address] 08/19/2025 3:30 PM EDT Office Visit [facility] Neurology, A Department of [address], [address], [address] [place] [address] Pauline Christensen MD [address] [place] [address] 101, 102, [address] [place] [address] documented as of this encounter Visit Diagnoses Not on filedocumented in this encounter Additional Health Concerns Assessment Noted Time PHQ-9 Depression Total Score: 0 01/27/20 23 1:28 PM EDT documented as of this encounter Care Teams Wood Heel Flap Inserter Relationship Specialty Start Date End Date Eliceo Gómez Jr., DO [address] [place] [address], [address], [place] [address] PCP - General Family Medicine 12/11/19 Jenna Butler [address] Consulting Physician Behavioral Health 12/20/23 documented as of this encounter
--- OUTSIDE RECORDS SUMMARY | 2025-05-19 08:03 | XMS_ITS ---
Author Organization [facility] Address [address] [place] [address] Care Team Providers Care Carpenter Cradle And Dolly Name Role Phone HernandezEliceo randolph Asiya LOAIZA Primary Care Provider [phone] Eliceo Gómez DO Unavailable [phone] Juan Damico DO Unavailable [phone] Active Problems Problem Noted Date Diagnosed Date [...]
--- OUTSIDE RECORDS SUMMARY | 2025-05-19 08:04 | XMS_ITS | Encounter Summary ---
Author Organization [facility] Address [address] [place] [address] Care Team Providers Care Insole Stiffener Name Role Phone Eliceo Gómez DO Primary Care Provider [phone] Eliceo Gómez DO Unavailable [phone] Beata Hernandez Unavailable Juan Damico DO Unavailable [phone] Encounter Details Date Type Department Care Team (Late st Contact Info) Description 04/12/2024 Abstract [facility] [address] [place] [address] Eliceo Gómez, DO [address] [facility] [address] [place] [address] Social History Tobacco Use Types Packs/Day Years [...] Recorded Patient Health Questionnaire-2 Score 0 03/14/2024 [facility] of Occupat ional Health [...] DERM [address] [place] [address] Nelsy Harris, LOADING SUPERVISOR-SEED SORTER [address] [place], [place] [address] documented as of this encounter Visit Diagnoses Not on filedocumented in this encounter Care Teams Insole Stiffener Relationship Specialty Start Date End Date Eliceo Gómez DO [address] [place] [address] PCP - General Family Medicine 04/04/23 Eliceo Gómez DO [address] [place] [address] [facility] 05/06/2310/05 Beata Hernandez PA [address] [place] [address] Dietitian Nutrition 08/08/23 05/16/24 Juan Damico, [address] [place] [address] Referring Physician Obstetrics and Gynecology 05/20/24 documented as of this encounter
--- OUTSIDE RECORDS SUMMARY | 2025-05-19 08:04 | XMS_ITS | Encounter Summary ---
Author Organization [facility] Address [address] [place] [address] Care Team Providers Care Dampener Operator Name Role Phone Eliceo Gómez DO Primary Care Provider [phone] Eliceo Gómez DO Unavailable [phone] Beata Hernandez Unavailable Juan Damico DO Unavailable [phone] Encounter Details Date Type Department Care [...] 0 03/14/2024 [facility] [...] DERM [address] [place] [address] Nelsy Harris APRN-PERSONNEL GENERALIST MANAGER [address] [place] [address] documented as of this encounter Procedures Procedure Name Priority Date/Time Associated Diagnosis Comments XR FOOT RT MIN 3V 03/20/2024 10: 17 AM EDT documented in this encounter Results * XR FOOT RT MIN 3V (03/20/2024 10:17 AM EDT) Anatomical Region Laterality Modality Other 03/20/2024 10:1 7 AM EDT Narrative 03/20/2024 10:19 AM EDT The [address] [address] XRay Report Signed Patient: MARY FUENTES MR#: [id number] : 1970 Acct:[id number] Age/Sex: 53 / F ADM Date: 03/20/24 Loc: EC Attending Dr: Sade Felix D.P.M. Ordering Physician: Sade Felix D.P.M. Date of Service: 03/20/24 Procedure(s): XR foot RT min 3V Accession Number(s): [id number] cc: Sade Felix D.P.M.; Isatu GÓMEZ [place] [address] Patient Name: MARY FUENTES MRN: [id number] date: 1970 Sex: F Assigned Patient Location: Current Patient Location: Accession/Order Number: [id number] Exam Date: 03/20/2024 09:50 Report Date: 03/20/2024 [...] Signed By: 03/20/24 1019 DD/ 1017 TD/TT: Installment Agent: Procedure Note Radiology, Radiologist, MD - 03/20/2024 [place] [address] XRay Report Signed Patient: MARY FUENTES DMR#: [id number] : 1970Acct:[id number] Age/Sex: 53 / FADM Date: 03/20/24 Loc: EC Attending Dr: Sade Felix D.P.M. Ordering Physician: Sade Felix D.P.M. Date of Service: 03/20/24 Procedure(s): XR foot RT min 3V Accession Number(s): [id number] cc: Sade Felix D.P.M.; Isatu GÓMEZ [place] [address] Patient Name: MARY FUENTES MRN: [id number] date: 1970 Sex: F Assigned Patient Location: Current Patient Location: EC Accession/Order Number: [id number] Exam Date: 03/20/2024 09:50 Report Date: 03/20/2024 [...] M.D. Signed By:03/20/24 1019 DD/ 1017 TD/TT: Installment Agent: us Generic External Data Provider [facility] Final Result documented in this encounter Visit Diagnoses Not on filedocumented in this encounter Care Teams Dampener Operator Relationship Specialty Start Date End Date Eliceo Gómez DO [address] [facility] [address] [place] [address] PCP - General Family Medicine 04/04/23 Eliceo Gómez DO [address] [place] [address] [facility] 05/06/2310/05 Beata Hernandez PA [address] [place] [address] Dietitian Nutrition 08/08/23 05/16/24 Juan Damico DO [address] [place] [address] Referring Physician Obstetrics and Gynecology 05/20/24 documented as of this encounter
--- OUTSIDE RECORDS SUMMARY | 2025-05-19 08:04 | XMS_ITS | Encounter Summary ---
Author Organization [facility] Address [address] [place] [address] Care Team Providers Care Parcel Post Officer Name Role Phone Eliceo Gómez DO Primary Care Provider [phone] Elicoe Gómez DO Unavailable [phone] Beata Hernandez Unavailable Juan Damico DO Unavailable [phone] Encounter Details Date Type Department Care Team (Late st Contact Info) Description 03/07/2024 Abstract [facility] FM [address] [facility] [address] [place] [address] Eliceo Gómez, DO [address] [facility] [address] [place] [address] Social History Tobacco Use Types Packs/Day Years [...] you attend chur or congregational services? Never 04/14/2023 Do you belong to [...] Questionnaire-2 Score 0 10/03/2023 [employer] [facility] - Occupational Stress [...] DERM [address] [place] [address] Nelsy Harris, FRUIT DUMPER-ANTIQUE FURNITURE REPAIRER [address] [place], [place] [address] documented as of this encounter Visit Diagnoses Not on filedocumented in this encounter Care Teams Parcel Post Officer Relationship Specialty Start Date End Date Eliceo Gómez DO [address] [place] [address] PCP - General Family Medicine 04/04/23 Eliceo Gómez DO [address] [place] [address] [facility] - [facility] 05/06/2310/05 Beata Hernandez PA [address] [place] [address] Dietitian Nutrition 08/08/23 05/16/24 Juan Damico, [address] [place] [address] Referring Physician Obstetrics and Gynecology 05/20/24 documented as of this encounter
--- OUTSIDE RECORDS SUMMARY | 2025-05-19 08:04 | XMS_ITS | Encounter Summary ---
Author Organization [facility] Address [address] [place] [address] Care Team Providers Care Forestry Conservation Worker Name Role Phone Eliceo Gómez DO Primary Care Provider [phone] Eliceo Gómez DO Unavailable [phone] Beata Hernandez Unavailable Juan Damico DO Unavailable [phone] Encounter Details Date Type Department Care Team (Late st Contact Info) Description 04/15/2024 Abstract [facility] FM [address] [facility] [address] [place] [address] Eliceo Gómez, DO [address] [facility] [address] [place] [address] Social History Tobacco Use Types Packs/Day Years [...] Recorded Patient Health Questionnaire-2 Score 0 03/14/2024 [facility]at ional [facility] [...] [address] [place] [address] Nelsy Harris, ELECTRIC METER INSTALLER HELPER-OCCUPATIONAL MEDICINE OFFICER [address] [place], [place] [address] documented as of this encounter Visit Diagnoses Not on filedocumented in this encounter Care Teams Forestry Conservation Worker Relationship Specialty Start Date End Date Eliceo Gómez DO [address] [place] [address] PCP - General Family Medicine 04/04/23 Eliceo Gómez DO [address] [place] [address] [facility] - [facility] 05/06/2310/05 Beata Hernandez PA [address] [place] [address] Dietitian Nutrition 08/08/23 05/16/24 Juan Damico, [address] [place] [address] Referring Physician Obstetrics and Gynecology 05/20/24 documented as of this encounter
--- OUTSIDE RECORDS SUMMARY | 2025-05-19 08:04 | XMS_ITS | Encounter Summary ---
Author Organization [facility] tem Address [id number] [address] [place] [address] Care Team Providers Care Auxiliary Operator Name Role Phone Dalia Morales DO, George R Primary Care Provider + Encounter Details Date Type Department Care Team (Late st Contact Info) Description 12/23/2019 Telephone [facility] [address] [address] Jenifer Helm RN Social History Tobacco Use Types Packs/Day [...] 9:00 AM EDT Office Visit [facility] Department of [facility] [address] [facility] [address] [place] [address] Vicki Roche DO [address] [facility], [address] [place], [place] [address] Noman Mayo MD [address] [facility], [address] [place] [address] 08/19/2025 3:30 PM EDT Office Visit [facility] Department of [address] [place] [address] Pauline Christensen MD [address] [place] [address] 101, [address] [place] [address] documented as of this encounter Visit Diagnoses Not on filedocumented in this encounter Additional Health Concerns Infection Onset Date Last Indicated Resolved Time COVID-19 Rule-Out 09/22/2020 09/22/2020 09/22/2020 3:17 PM EST documented as of this encounter Care Teams Auxiliary Operator Relationship Specialty Start Date End Date Eliceo Gómez Jr., DO [address] [facility], [address] [place] [address] PCP - General Family Medicine 12/11/19 Jenna Butler [address] [place] [address] Consulting Physician Behavioral Health 12/20/23 documented as of this encounter
--- OUTSIDE RECORDS SUMMARY | 2025-05-19 08:04 | XMS_ITS | Encounter Summary ---
Author Organization [facility] Address [address] [place] [address] Care Team Providers Care Basket Person Name Role Phone Eliceo Gómez DO Primary Care Provider [phone] Eliceo Gómez DO Unavailable [phone] Beata Hernandez Unavailable Juan Damico DO Unavailable [phone] Encounter Details Date Type Department Care Team (Late st Contact Info) Description 04/18/2024 Abstract [facility] [address] [facility] [address] [place] [address] Eliceo Gómez, DO [address] [facility] 230 [place] [address] Social History Tobacco Use Types Packs/Day Years [...] Recorded Patient Health Questionnaire-2 Score 0 03/14/2024 [facility] Occupat ional [facility] [...] DERM [address] [place] [address] Nelsy Harris, QUALITY CONTROL-SAP ARCHITECT [address] [place], [place] [address] documented as of this encounter Visit Diagnoses Not on filedocumented in this encounter Care Teams Basket Person Relationship Specialty Start Date End Date Eliceo Gómez DO [address] [place] [address] PCP - General Family Medicine 04/04/23 Eliceo Gómez DO [address] [place] [address] [facility] 05/06/2310/05 Beata Hernandez PA [address] [place] [address] Dietitian Nutrition 08/08/23 05/16/24 Juan Damico, [address] [place] [address] Referring Physician Obstetrics and Gynecology 05/20/24 documented as of this encounter
--- OUTSIDE RECORDS SUMMARY | 2025-05-19 08:04 | XMS_ITS | Patient Health Record ---
Author Organization [facility] [place] Address [address] [place] [address] Care Team Providers Care Player Piano Technician Name Role Phone Rudy Rigo LOAIZA Primary Care Provider UnavailSade Frances Unavailable [phone] Falguni Duron Unavailable [phone] Allergies No Known Allergies Results Component Value Reference Range Notes XR foot RT min 3V (Not yet r eviewed by provider) Interpretation: Performing Lab: Notes/Report: Source Facility: [place] [address] XRay Report Signed Patient: MARY FUENTES MR#: [id number] : 1970 Acct:[id number] Age/Sex: 54 / F ADM Date: 10/01/24 Loc: RAD Attending Dr: Sade Felix D.P.M. Ordering Physician: Sade Felix D.P.M. Date of Service: 10/01/24 Procedure(s): XR foot RT min 3V Accession Number(s): [id number] cc: Sade Felix D.P.M.; Isatu CASTRO [place] [id number] Patient Name: MARY FUENTES MRN: [id number] date: 1970 Sex: F Assigned Patient Location: RAD Current Patient Location: RAD Accession/Order Number: [id number] Exam Date: 10/01/2024 07:45 Report Date: 10/03/2024 [...] M.D. Signed By: 10/03/24927 DD/ 4 TD/TT: Transport Aircrewman: [place] [address] XRay Report Signed Patient: CRISTY FUENTES MR#: [id number] : 1970 Acct:[id number] Age/Sex: 54 / F ADM Date: 10/01/24 Loc: TINY Attending Dr: Sade Felix D.P.M. Ordering Physician: Sade Felix D.P.M. Date of Service: 10/01/24 Procedure(s): XR foot RT min 3V Accession Number(s): [id number] cc: Sade Felix D.P.M.; Isatu CASTRO [place] [address] Patient Name: MARY FUENTES MRN: [id number] date: 1970 Sex: F Assigned Patient Location: RAD Current Patient Location: RAD Accession/Order Numb er: [id number] Exam Date: 07:45 Report Date: 10/03/2024 09:25 At the request of: SADE FELIX Procedure: XR foot RT min 3V PROCEDURE: XR foot RT min 3V HISTORY: Right Foot Pain M79.671 COMPARISON: XR foot right 07/30/2024 FINDINGS: BONES:Prior calcanea l osteotomy and repair. Mechanical fusion of the talocalcaneal and ta lonavicular joints via lag screws. Osteotomy and wedge placement within the medial cuneiform. Osteotomy and single screw repair of head of first metatarsal. SOFT TISSUES:No visi ble soft tissue swelling. EFFUSION:None visible. OTHER: Negative. X R/XR foot RT min 3V IMPRESSION: 1. Stable surgical c hanges without evidence of hardware failure or change in alignment. 2. No acute bone abnormality. Electronically authe nticated by: ADAM OLIVEROS Date: 10/03/2024 09:25 Dictated By: Adam Oliveros M.D. Signed By: 10/03/24927 DD/ 4 TD/TT: Transport Aircrewman: XR foot RT min 3V (Not yet r eviewed by provider) Interpretation: Performing Lab: Notes/Report: Source Facility: [place] [address] XRay Report Signed Patient: MARY FUENTES MR#: [id number] : 1970 Acct:[id number] Age/Sex: 54 / F ADM Date: 01/03/25 Loc: EC Attending Dr: Sade Felix D.P.M. Ordering Physician: Sade Felix D.P.M. Date of Service: 01/03/25 Procedure(s): XR foot RT min 3V Accession Number(s): [id number] cc: Sade Felix D.P.M.; Isatu CASTRO [place] [address] Patient Name: MARY FUENTES MRN: [id number] date: 1970 Sex: F Assigned Patient Location: Current Patient Location: Accession/Order Number: [id number] Exam Date: 01/03/2025 12:17 Report Date: 01/03/2025 [...] Makenna Pathak M.D.01/03/2025 12:21 PM Dictation Location: [place] [address] Electronically authenticated by: [id number] Y Date: 01/03/2025 12:21 Dictated By: Makenna Pathak M.D. Signed By: 01/03/25 1223 DD/ 1221 TD/TT: Transport Aircrewman: [place] [address] XRay Report Signed Patient: CRISTY FUENTES MR#: [id number] : 1970 Acct:[id number] Age/Sex: 54 / F ADM Date: 01/03/25 Loc: Attending Dr: Sade Felix D.P.M. Ordering Physician: Sade Felix D.P.M. Date of Service: 01/03/25 Procedure(s): XR foot RT min 3V Accession Number(s): [id number] cc: Sade Felix D.P.M.; Isatu CASTRO [place] [address] Patient Name: MARY FUENTES MRN: [id number] date: 1970 Sex: F Assigned Patient Location: Current Patient Location: Accession/Order Numb er: [id number] Exam Date: 01/03/2025 12:17 Report Date: 01/03/2025 12:21 At the request of: SADE FELIX DPDirk Procedure: XR foot RT min 3V RIGHT FOOT - 4 views CLINICAL DATA: Right foot pain. Previous surgery. COMPARISON: 10/01/2024 AP, lateral, oblique and tangential calcaneal views were obtained. There is redemonstration of m ultiple screws involving the talus, calcaneus and navicular. There is prior calcaneal osteotomy. Hardware is also again seen head of the first me tatarsal and at the first cuneiform. There is no interval change. There is no developing fracture or dislocation. There are no significant soft tis jj abnormalities. X R/XR foot RT min 3V IMPRESSION: STABLE APPEARANCE OF THE FOOT Impression dictated by: Makenna Pathak M.D.01/03/2025 12:21 PM Dictation Location: [place] [address] Electronically authe nticated by: [id number] Y Date: 01/03/2025 12:21 Dictated By: Makenna Pathak M.D. Signed By: 01/03/25 1223 DD/ 1221 TD/TT: Transport Aircrewman: XR Foot RT (3 views) * Reviewed date:11/04/2024 02:42:58 PM Interpretation: Performing Lab: Notes/Report: FL fluoroscopy <1hr NON-READ (Not yet reviewed by provider) Interpretation: Performing Lab: Notes/Report: Source Facility: [place] [address] Fluoroscopy Report Signed Patient: MARY FUENTES MR#: [id number] : 1970 Acct:[id number] Age/Sex: 54 / F ADM Date: 05/27/24 Loc: MS 221-[address]: Sade Felix D.P.M. Ordering Physician: Sade Felix D.P.M. Date of Service: 05/27/24 Procedure(s): FL fluoroscopy <1hr NON-READ Accession Number(s): [id number] cc: Sade Felix D.P.M.; Isatu CASTRO [place] [address] Patient Name: MARY FUENTES MRN: [facility]:[id number] date: 1970 Sex: F Assigned Patient Location: [facility] Current Patient Location: MS Accession/Order Number: [id number] Exam Date: 05/27/2024 11:35 Report Date: 05/29/2024 08:32 At the request of: SADE FELIX Procedure: FL fluoroscopy <1hr NON-READ EXAM: FL fluoroscopy <1hr NON-READ HISTORY: TECHNIQUE: FINDINGS: Please see Operative Report. Electronically authenticated by: RADIOLOGIST NO Date: 05/29/2024 08:32 Dictated By: Lana,Radiologist Signed By: 05/29/24833 DD/ 1 TD/TT: Transport Aircrewman: [place] [address] Fluoroscopy Report Signed Patient: CRISTY FUENTES MR#: [id number] : 1970 Acct:[id number] Age/Sex: 54 / F ADM Date: 05/27/24 Loc: MS 221-[address]: Sade Felix D.P.M. Ordering Physician: Sade Felix D.P.M. Date of Service: 05/27/24 Procedure(s): FL flu oroscopy <1hr NON-READ Accession Number(s): [id number] cc: Sade Felxi D.P.M.; Isatu CASTRO [place] [id number] Patient Name: MARY FUENTES MRN: [id number] date: 1970 Sex: F Assigned Patient Loc ation: [facility] Current Patient Location: MS Accession/Order Numb er: [id number] Exam Date: 05/27/2024 11:35 Report Date: 05/29/2024 08:32 At the request of: SADE FELIX Procedure: FL fluoro scopy <1hr NON-READ EXAM: FL fluoroscopy <1hr NON-READ HISTORY: TECHNIQUE: FINDINGS: Please see Operative Report. Electronically authe nticated by: RADIOLOGIST NO Date: 05/29/2024 08:32 Dictated By: Lana,Radiologist Signed By: 05/29/24833 DD/ 1 TD/TT: Transport Aircrewman: XR Foot RT (3 views) * Reviewed date:11/04/2024 01:26:00 PM Interpretation: Performing Lab: Notes/Report: Reason For Referral Reason Compression stocking s Diagnosis 1 Right foot pain (M79 .671) Referral Organization [facility]) Referring Provider First Name Sade Referring [...] Problem Status W/U Status Risk Notes Problem 48027301 Essential (primary) hypertension (I10) Active confirmed Problem 693763434 Gastro-esophagea l reflux disease without esophagitis (K21.9) Active confirmed Problem 0721868716816483 Primary osteoarthritis, right ankle and foot (M19.071) Active confirmed Problem 373158967406814 Peroneal tendinitis, right leg (M76.71) Active confirmed Problem 5745216492997913 Posterior tibia l tendinitis, left leg (M76.822) Active confirmed Problem 407128693 Unspecified subluxation of right foot, sequela (S93.301S) Active confirmed Problem Presence of righ t artificial ankle joint (Z96.661) Active confirmed Problem 661720811 Presence of functional implant, unspecified (Z96.9) Active confirmed Problem Gastroesophageal reflux disease (437272289) GERD (gastroesophageal reflux disease) (K21.9) Active confirmed Problem Sleep apnea (68857710) Sleep apnea (G47.30) Active confirmed Problem Bipolar disorder (06438749) Bipolar disorder (F31.9) Active confirmed Problem Generalized anxiety disorder (73393329) JOLEEN (generalized anxiety disorder) (F41.1) Active confirmed Problem Panic disorder (560523313) Panic attacks (F41.0) Active confirmed Problem Iron deficiency anemia (78143709) Anemia, iron deficiency (D50.9) Active confirmed Problem Osteoarthritis of right foot (1923908361955810) Osteoarthritis of right foot (M19.071) Active confirmed Problem Primary osteoarthritis (598050636) Primary osteoarthritis (M19.91) Active confirmed Problem Localized, primary osteoarthritis of the ankle and/or foot (007781879) Osteoarthritis of ankle, right (M19.071) Active confirmed Problem Essential hypertension (29876080) BP (high blood pressure) (I10) Active confirmed Problem 6095202264675281 Arthritis of le ft foot (M19.072) Active confirmed Problem 7892705998116727 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 (M76.821) Active confirmed Vital Signs Heart Rate 66 /min 01/03/2025 Temperature 97 degrees Fahrenheit 01/03/2025 Respiratory Rate 16 /min 06/05/2024 Oximetry 98 % 01/03/2025 Height 64 in 01/03/2025 Weight 174 lbs 01/03/2025 BMI 29.86 kg/m2 01/03/2025 Encounters Encounter Location Date Provider Diagnosis [facility] [address] [place] [address] [place] [address] 05/30/2024 Sade Felix [facility] [address] [place] [address] [place] [address] 06/05/2024 Sade Felix [facility] ([facility]) [address] [place] [address] [place] [address] 06/18/2024 Falguni Duron [facility]) [address] [facility] [place] [address] 01/03/2025 Sade Felix [facility] [address] [facility] [place] [address] 12/10/2024 Sade Barriedewey Pain due to bone fixation device, initial encounter T84.84XA ; Posterior tibial tendon dysfunction (PTTD) of right lower extremity M76.821 and Right foot pain M79.671 [facility] [address] [place] [address] [place] [address] 01/03/2025 Sade Felix Posterior tibial tendon dysfunction (PTTD) of right lower extremity M76.821 ; Primary osteoarthritis, right ankle and foot M19.071 and Right foot pain M79.671 [facility] [address] [place] [address] [place] [address] 07/09/2024 Sade Barriedewey Osteoarthritis of right foot M19.071 and Unspecified subluxation of right foot, sequela S93.301S [facility]) [address] [place] [address] [place] [address] 07/30/2024 Sade Isidro Right foot pain M79.671 and Pain due to bone fixation device, initial encounter T84.84XA [facility] [address] [place] [address] [place] [address] 10/01/2024 Sade Isidro Pain due to bone fixation device, initial encounter T84.84XA ; Posterior tibial tendon dysfunction (PTTD) of right lower extremity M76.821 ; Osteoarthritis of right foot M19.071 and Right foot pain M79.671 [facility] [address] [place] [address] [place] [address] 06/05/2024 Sade Isidro Pain due to bone fixation device, initial encounter T84.84XA and Posterior tibial tendon dysfunction (PTTD) of right lower extremity M76.821 [facility] ([facility]) [address] [place] [address] [place] [address] 06/19/2024 Sade Felix Osteoarthritis of right foot M19.071 and Pain due to bone fixation device, initial encounter T84.84XA [facility] [address] [place] [address] 05/27/2024 Sade Felix Assessments Encounter Date Diagnosis [...] of infection today. She is taking 2-3 Wayne per day and is requesting refill which [...] right lower extremity (ICD-10 - M76.821) 12/10/2024 Pain due to bone fixation device, [...] well as stretching exercises. Finally I prescribed Wayne 5/325 1 by mouth every 6 hours [...] 12/10/2024 Right foot pain (ICD-10 - M79.671) 10/01/2024 Osteoarthritis of right foot (ICD-10 - M19.071) 10/01/2024 Right foot pain (ICD-10 - M79.671) Plan Of Treatment Pending Test Test Name [...] Insured Coverage Start Date Coverage End Date [facility] [employer]IC[facility] [address] [place] [address] [id number] Mary Fuentes Self - patient is the insured [place] 2ND INS [address] [facility] [place] [id number] [phone] [id number] Mary Fuentes Self - patient is the insured 4 [place]IC[place] [address] [id number] Mary Fuentes Self - patient is the [...]
[2025-05-19 08:12] VITALS: BP 111/79; PULSE 74; TEMP 36.4; O2SAT 98
[2025-05-19] MEDS: METHYLPREDNISOLONE ACETATE 40 MG/ML VIAL 80 MG INJ (09:41)
[2025-05-19] MEDS: BUPIVACAINE HCL 0.25% PF 25 MG/10 ML VIAL 4 ML INJ (09:41)
[2025-05-19] MEDS: LIDOCAINE HCL 2% 400 MG/20 ML MDV INJ (09:41)
--- NOTE | 2025-05-19 09:45 | P.ON_ITS ---
Date of procedure: 05/19/25 Pre-op diagnosis: Pain due to lumbar spondylosis without myelopathy Post-op diagnosis: same as pre-op Procedure: Procedure: Bilateral L4-5, L5-S1 radiofrequency ablation Medications: Bupivacaine 0.25% 4cc, depomedrol 80mg, lidocaine 2% 6cc The patient was seen and examined in the preoperative holding area.? The site was marked.? Written informed consent was obtained and placed on the chart.? The patient was brought to the medical procedure unit and placed in the prone position.? A timeout was completed verifying correct patient, procedure, positioning, and special requirements.? The skin overlying the target points, the designated medial branch, were prepped and draped in the usual sterile fashion.? The target point was achieved with a 20-gauge 15 cm with a 10 mm curved active tip radiofrequency cannula under direct fluoroscopic visualizati on.? The needle was inserted at level L4 on the right side. Needle tip position was confirmed with lateral fluoroscopic position.? Motor stimulation was carried out at 2 Hz up to 5 volts with the absence of extremity activity.? This was repeated at level L5, S1 on right side.?? Sensory stimulation was carried out.? Concordant pain was realized at the above- mentioned sites.? Then radiofrequency lesioning was carried out times 90 seconds at 80 degrees times 2 lesions at each level.? The radiofrequency probe was removed prior to cannula removal.? The above-mentioned injectate was placed in 1 mL increments.? The needle was removed. The same procedure, with the same steps, was then completed on the left side at the same levels. Insertion sites were covered.? The patient was taken to the postoperative recovery area and monitored for an appropriate length of time before being found suitable for discharge in the company of a responsible adult. Anesthesia: Local Surgeon: Ace Ahumada Pathology: none sent Condition: stable Disposition: no change
[2025-05-19 09:49] VITALS: BP 130/83; PULSE 66; O2SAT 100
[2025-05-19 13:00] VITALS: BP 129/85; PULSE 70; O2SAT 99
== END 2025-05-19 09:46 | disposition home or self-care (01) ==
LOC: SURGOUT 07:59
PROVIDERS: PCP Family Medicine; Visit Provider Anesthesiology
DX: M47.816 Spondylosis without myelopathy or radiculopathy, lumbar region (principal); M54.50 Low back pain, unspecified
CPT/HCPCS: 64635; 64636; J0665; J1010

== ENCOUNTER 2025-06-12 07:39 | Outpatient (OUT) | payer OTHER, MEDICARE, SELFPAY ==
--- NOTE | 2025-06-12 07:57 | PM.CN ---
Consult Note: HPI Data of Consult Patient: known to practice within the last 3 years Requesting Physician: Monica Burns NP Primary Care Provider: Isatu CASTRO Consult Narrative Reason for consult: low back pain Narrative: Mary Leal a pleasant 55 year old female presents for evaluation of chronic low back pain. hx of lumbar spondylosis unresponsive to > 6 weeks of PT/HEP, heat, ice, tylenol, nsaids. currently utilizing mobic 15mg daily and lidocaine patches prn, as well as baclofen 5-10mg TID PRN pain/spasms. pain today 8/10 increasing to 10/10 with standing, bending, walking, twisting, pushing, pulling, lifting. pain sharp, aching, burning. Notes increased pain 1 week after her recent repeat bilateral L4-5 L5-S1 facet RFA. recently underwent EMG of BLE which reveals a chronic l5 radiculopathy in BLE. pt reports since last visit she has had increased numbness tingling to left leg. cc:: CC: Monica Burns NP Review of Systems ROS Status of ROS 10 or more systems reviewed and unremarkable except as noted in history and below Musculoskeletal Reports: back pain PFSH [facility] Medical History (Updated 06/12/25 @ 08:00 by Monica Burns NP) Strain of muscle(s) and tendon(s) of peroneal muscle group at lower leg level, right leg, initial encounter ?S86.311A - Strain of muscle(s) and tendon(s) of peroneal muscle group at lower leg level, right leg, initial encounter (ICD-10) Pain in right ankle and joints of right foot ?M25.571 - Pain in right ankle and joints of right foot (ICD-10) Primary osteoarthritis, right ankle and foot ?M19.071 - Primary osteoarthritis, right ankle and foot (ICD-10) Overactive bladder ?N32.81 - Overactive bladder (ICD-10) Insomnia ?G47.00 - Insomnia, unspecified (ICD-10) Bipolar disorder ?F31.9 - Bipolar disorder, unspecified (ICD-10) Gastroparesis ?K31.84 - Gastroparesis (ICD-10) Panic attacks ?F41.0 - Panic disorder [episodic paroxysmal anxiety] (ICD-10) OCD (obsessive compulsive disorder) ?F42.9 - Obsessive-compulsive disorder, unspecified (ICD-10) COVID-19 ?U07.1 - COVID-19 (ICD-10) Migraine ?G43.909 - Migraine, unspecified, not intractable, without status migrainosus (ICD-10) Gastritis ?K29.70 - Gastritis, unspecified, without bleeding (ICD-10) GERD (gastroesophageal reflux disease) ?K21.9 - Gastro-esophageal reflux disease without esophagitis (ICD-10) Peroneal tendinitis ?M76.70 - Peroneal tendinitis, unspecified leg (ICD-10) Posterior tibial tendon dysfunction ?M76.829 - Posterior tibial tendinitis, unspecified leg (ICD-10) Painful orthopaedic hardware ?T84.84XA - Pain due to internal orthopedic prosthetic devices, implants and grafts, initial encounter (ICD-10) Post op infection ?T81.40XA - Infection following a procedure, unspecified, initial encounter (ICD-10) Restless leg syndrome ?G25.81 - Restless legs syndrome (ICD-10) Tibialis anterior tendon tear, traumatic ?S86.219A - Strain of muscle(s) and tendon(s) of anterior muscle group at lower leg level, unspecified leg, initial encounter (ICD-10) Osteoarthritis ?M19.90 - Unspecified osteoarthritis, unspecified site (ICD-10) Back pain ?M54.9 - Dorsalgia, unspecified (ICD-10) Sleep disorder ?G47.9 - Sleep disorder, unspecified (ICD-10) PTSD (post-traumatic stress disorder) ?F43.10 - Post-traumatic stress disorder, unspecified (ICD-10) Depression ?F32.A - Depression, unspecified (ICD-10) Anxiety ?F41.9 - Anxiety disorder, unspecified (ICD-10) Sleep apnea ?G47.30 - Sleep apnea, unspecified (ICD-10) Asthma ?J45.909 - Unspecified asthma, uncomplicated (ICD-10) Constipation ?K59.00 - Constipation, unspecified (ICD-10) High cholesterol ?E78.00 - Pure hypercholesterolemia, unspecified (ICD-10) Hypertension ?I10 - Essential (primary) hypertension (ICD-10) Female rectocele with enterocele ?N81.6 - Rectocele (ICD-10) ?K46.9 - Unspecified abdominal hernia without obstruction or gangrene (ICD-10) 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 - Other specified functional intestinal disorders (ICD-10) Surgical History S/P foot surgery ?Z98.890 - Other specified postprocedural states (ICD-10) H/O cervical spine surgery ?Z98.890 - Other specified postprocedural states (ICD-10) S/P placement of nerve stimulator (01/02/24) ?Z96.82 - Presence of neurostimulator (ICD-10) S/P placement of nerve stimulator ?Z96.82 - Presence of neurostimulator (ICD-10) History of ankle surgery (11/13/23) ?Z98.890 - Other specified postprocedural states (ICD-10) H/O tooth extraction ?K08.409 - Partial loss of teeth, unspecified cause, unspecified class (ICD-10) H/O foot surgery (05/12/23) ?Z98.890 - Other specified postprocedural states (ICD-10) History of appendectomy (1987) ?Z90.49 - Acquired absence of other specified parts of digestive tract (ICD-10) History of colonoscopy ?Z98.890 - Other specified postprocedural states (ICD-10) History of colectomy (03/2022) ?Z90.49 - Acquired absence of other specified parts of digestive tract (ICD-10) History of tonsillectomy and adenoidectomy ?Z90.89 - Acquired absence of other organs (ICD-10) History of hysterectomy (2014) ?Z90.710 - Acquired absence of both cervix and uterus (ICD-10) History of arthroplasty of right ankle ?Z98.890 - Other specified postprocedural states (ICD-10) History of repair of rotator cuff ?Z98.890 - Other specified postprocedural states (ICD-10) S/P ankle ligament repair (2020) ?Z98.890 - Other specified postprocedural states (ICD-10) Family History Other Family history of Alzheimer's disease Family history of coronary artery disease Family history of heart disease Family history of hypertension Social History Within the past year, how often did you have a drink containing alcohol: never Score interpretation: A score less than 3 is consistent with normal alcohol consumption. Smoking status: Never smoker Non-prescribed substance use: denies use Previous occupational history: [employer] Highest level of school completed/degree received: some college, no degree Little interest or pleasure in doing things: not at all Feeling down, depressed, or hopeless: not at all Feel stressed/tense/nervous/anxious/difficulty sleeping: only a little Due to disability, difficulty making decisions: No Do you think of yourself as: straight/heterosexual Gender Identity: female Meds Home Medications and Allergies Home Medications ?Medication ?Instructions ?Recorded ?Confirmed ?Type ropinirole 1 mg tablet 1 mg PO BID 05/04/23 05/19/25 History fluticasone fur. 100 mcg-umeclid 1 inh inhalation Q24H 11/03/23 05/19/25 History 62.5 mcg-vilant 25 mcg inhalat.powder (Trelegy Ellipta) aripiprazole 300 mg suspension, 300 mg IM Q28D 05/17/24 05/19/25 History extended rel. intramuscular syringe (Abilirupal Maintena) atenolol 50 mg tablet 50 mg PO Q24H 05/17/24 05/19/25 History losartan 25 mg tablet 25 mg PO DAILY 05/17/24 05/19/25 History omeprazole 40 mg capsule,delayed 40 mg PO DAILY 05/17/24 05/19/25 History release daridorexant 50 mg tablet (Quviviq) mg PO .hs 08/01/24 History galcanezumab-gnlm 120 mg/mL mg subcut 12/26/24 History subcutaneous pen injector (Emgality Pen) naltrexone 1.5 mg capsule mg PO 12/26/24 History dextroamphetamine-amphetamine 20 20 mg PO DAILY 05/05/25 05/19/25 History mg tablet (Adderall) Allergies Allergy/AdvReac Type Severity Reaction Status Date / Time risperidone (From Risperdal) AdvReac Mild breast Verified 05/19/25 08:13 nipples leak Exam Constitutional Documenting provider has reviewed patient's vital signs: yes Common normals: no apparent distress, oriented x3, healthy appearing, alert and well nourished General appearance: cooperative HENMT Common normals: normocephalic, hearing grossly normal bilaterally and moist oral mucous membranes Head and scalp: normocephalic Eye Common normals: PERRL Pupil: PERRL Neck & C-Spine Common normals: full ROM General: normal visual inspection Chest Common normals: inspection of chest normal Respiratory Common normals: normal respiratory effort, no retractions and no use of accessory muscles Back & Pelvis Thoracic spine/upper back: ROM limited, pain with ROM and thoracic spinal tenderness Lumbar spine/lower back: ROM limited, pain with ROM, lumbar spinal tenderness and straight leg raise positive left; no paraspinal muscle tenderness and straight leg raise negative right Sacroiliac joints: SI joint(s) abnormal Other: left SIJ positive arcelia(patricks), gaenslens, thigh thrust, compression test positive facet loading and tenderness L4-S1 sensation intact BLE strength 5/5 in BLE thoracic tenderness noted to right T7-12 greater on the left than right. notable sensitivity and hyperalgesia following T7-10 dermatomal pattern to the left>right Neuro Common normals: oriented x3 Sensorium/orientation: alert Motor exam: strength 5/5 throughout and no movement abnormalities noted Psych Common normals: mental status grossly normal, thought process normal, cooperative, affect normal, speech normal and activity/motor behavior normal Speech: normal speech Thought process: normal thought process Results Additional Findings Additional findings: If on a controlled substance or opioids, I have checked an [place] report on this patient and there are no aberrancies noted in the prescribing history.??If on a controlled substance or opioid a drug screen was completed and reviewed within the last year, and if there has not been a drug screen completed we ordered one today to monitor higher risk, state monitored pain medication use. As part of providing excellent, safe, comprehensive care, the following was completed at our patient's visit: 1. A medication reconciliation and review to ensure accurate knowledge of current/active medications, including asking our patients to inform us about any [id number] medications or herbal remedies/nutritional supplements/alternative remedies. 2. A review to specifically ensure our patients have had annual screening for screening for depression, screening for tobacco use, and screening for unhealthy alcohol use. For concerning screenings had a discussion with the patient, provided patient education, and recommended follow-up with primary care provider when appropriate. If patient noted with a risk of falling, they received education on strength, gait, and balance training to prevent future risk of falling. Portions of this note may have been carried over from the previous visit and updated as appropriate. Please note this office utilizes paper charting in addition to the electronic medical record. A list of current medications, vitals, and PMH is available there as the clinical staff outside of myself do not have access to [employer] ([employer]) charting during the clinic day operations. As part of providing quality comprehensive care the current medications, vitals, and PMH were reviewed in the paper chart. Assessment and Plan Assessment and Plan (1) Lumbar radiculopathy: (2) Lumbar stenosis with neurogenic claudication: (3) Sacroiliitis: (4) Lumbar spondylosis: Assessment and Plan: 07/22/24 bilateral L4-5 L5-S1 facet RFA >50% improvement for at least 6 months The patient has had over 3 months of moderate to severe low back pain with functional impairment and inadequate response to conservative care including NSAIDS (unless there are contraindication such as concurrent blood thinners), multiple oral or topical pain medications, and home exercise program/physical therapy.? Patient has completed >6 weeks of guided home exercise program and/or formal physical therapy program without relief of their symptoms.? The Oswestry Disability Index was completed, and the patient scored a 58%.? The patient noted the following:?? moderate to severe low back pain with adls, standing, walking, sitting, sleeping, social life, travel (5) Intercostal neuralgia: Assessment and Plan: 04/14/25 left T8/9 T9/10 intercostal RFA >80% improvement ongoing pending right T8/9 T9/10 intercostal RFA under fluoroscopy with 10mg po valium 30-60mins prior to procedure for anxiolysis (6) Myofascial pain: Plan update lumbar mri without contrast to assess chronic low back pain, lumbar radiculopathy, and lumbar stenosis with NC in consideration of interventional therapy vs NS consultation start zonegran 50mg HS, previously had side effects with gabapentin and pregabalin. risks vs benefits reviewed continue other medications continue HEP/stretching as tolerated f/u to review MRI
== END 2025-06-12 07:40 | disposition home or self-care (01) ==
LOC: PM 07:39
PROVIDERS: PCP Family Medicine; Visit Provider Nurse Practitioner
DX: M54.16 Radiculopathy, lumbar region (principal); M48.062 Spinal stenosis, lumbar region with neurogenic claudication; M47.816 Spondylosis without myelopathy or radiculopathy, lumbar region; M79.18 Myalgia, other site
CPT/HCPCS: G0463

== ENCOUNTER 2025-06-25 06:57 | Outpatient (OUT) | payer OTHER, MEDICARE, SELFPAY ==
--- OUTSIDE RECORDS SUMMARY | 2024-12-10 07:30 | XMS_ITS ---
Author Organization The [facility] in [place] Address [address] [place] [address] Care Team Providers Care Cartography/Mapping Technician Name Role Phone Rigo Grant DO Primary Care Provider Jacob Ahuja Unavailable [phone] REASON FOR VISIT rt foot Medications Medication [...] Encounters Encounter Location Date Provider Diagnosis [facility] (PODIATRY) [address] [place] [address] [place] [address] 12/10/2024 Jacob Felix Pain due to bone [...] Mary FUENTES DDOB:[birth year] (54 yo F)Acc No.[id number]:12/10/2024 Follow Up Patient: Mary ROSADO Provider: Leo Felix DPM, MS :1970 A ge:54 Y S ex:Female Date:12/10/2024 Address:[address] [place] [address] [address] [id number] Pcp:Rigo Grant, DO Check In:11:31 AM ESTCheck [...] M usculoskeletal: Bone/Joint Symptoms d enies. C assisted Pain d enies.?Leg cramps d enies. N [...] bedtime Orally Once a day Requip Trelegy Ellipta(Mxdvnchceur-Xsygqtyyw-Nftqua) 100-62.5-25 MCG/ACT Aerosol Powder Breath Activated Inhalation [...] Once a day Taking Requip Taking Trelegy Ellipta(Klnhgmzpjwm-Oyntqxycy-Jtoxet) 100-62.5-25 MCG/ACT Aerosol Powder Breath Activated Inhalation [...] 12/10/2024 Generated for Philippe ardon/Osmin/Nilay on: 0 06/25/2025 07:03 AM EDT History and Physical Notes * [...]
--- OUTSIDE RECORDS SUMMARY | 2024-12-12 10:47 | XMS_ITS | Continuity of Care Document ---
Author Organization [facility] Address [address] [place] [address] Phone Care Team Providers Care Protection Consultant Name Role Phone Litzy HILL, Anibal Unavailable [...] Prophylaxis Adult Nutrit Couns For Control Of [place] Dis Nov Oral Hygiene Instruction Oral Hygiene Instruction [id number] Additional Oct Bitewig-single Film Limited Oral Eval Bitewings Four Films Intraoral-periapical 1st Film Prophylaxis Adult Moderate Risk Nutrit Couns For Control Of [place] Dis Jan Oral Hygiene Instruction Nutrit Couns For Control Of [place] Dis Sep No Charge Limited Oral Eval Extract; Erupted Th/exposted Rt - 021 Luxsyoujo-zobbqrupnp-oxss Additional Aug Nutrit Couns For Control Of [place] Dis Aug Pfizer COVID Vaccine Admin Dose [...] Diagnoses Date Provider Providers Copied on Encounter [facility], [address] [place] [address], [id number], [place] tel:[phone] Dental Clinic risa (chief complaint) Encounter for screening for dental disorders Litzy HILL Anibal. [address] [place] [address], [id number] , [place]. tel:[phone] [facility], [address] [place] [address], [id number], [place] tel:[phone] Dental Clinic risa (chief complaint) Body mass index [BMI] 25.0-25.9, adultEncounter for screening for dental disorders Litzy HILL Anibal. [address] [place] [address], [id number] , [place]. tel:[phone] [facility], [address] [place] [address], [id number], [place] tel:[phone] Dental Clinic dental new (chief complaint) Encounter for screening for dental disorders Litzy HILL Anibal. [address] [place] [address], [id number] , [place]. tel:[phone] [facility], [address] [place] [address], [id number], [place] tel:[phone] Dental Clinic DL (chief complaint) Encounter for screening for dental disorders Dolores HILL Prosper. [address] [place] [address], [id number], [place]. tel:[phone] [facility], [address] [place] [address], [id number], [place] tel:[phone] Dental Clinic PRO (chief complaint) Encounter for screening for dental disorders Catrachita Rutledge. . tel:[phone] [facility], [address], [place], [id number], [place] tel:[phone] Dental Clinic filling (chief complaint) Encounter for screening for dental disorders Abdiel Mac. [address] [place], [address], [place]. tel:[phone] [facility], [address], [place], [id number], [place] tel:[phone] Dental Clinic filling (chief complaint) Encounter for screening for dental disorders Abdiel Mac. [address] [place], [address], [place]. tel:[phone] [facility], [address] [place] [address], [id number], [place] tel:[phone] [facility] No Information Regina Camacho. [address], [place], [id number] , [place]. tel: [phone] [facility], [address] [place] [address], [id number], [place] tel:[phone] Dental Clinic Ext. (chief complaint) Encounter for screening for dental disorders Abdiel Mac. [address] [place], [address], [place]. tel:[phone] [facility], [address], [place], [id number], [place] tel:[phone] COVID [facility] Encounter for screening for dental disorders Regina Camacho. [address], [place], [id number] , [place]. tel:[phone] [facility], [address], [place], [id number], [place] tel:[phone] Dental Clinic Encounter for screening for dental disorders Abdiel Mac. [address] [place], [address], [place]. tel:[phone] [facility], [address], [place], [id number], [place] tel:[phone] Dental Clinic dental limited (chief complaint) Encounter for screening for dental disorders Yogesh Arreaga. [address], [place], [id number] , [place]. tel:[phone] [facility], [address], [place], [id number], [place] tel:[phone] Dental Clinic Dental New (chief complaint) Encounter for screening for dental disorders Yogesh Arreaga. [address], [place], [id number] , [place]. tel:[phone] [facility], [address] [place] [address], [id number], [place] tel:[phone] Dental Clinic Encounter for screening for dental disorders Yogesh Arreaga. [address], [place], [id number] , [place]. tel:[phone] [facility], [address] [place] [address], [id number], [place] tel:[phone] [facility] No Information Visci DO Chuy. [address], [place], [id number] , [place]. [phone] Family History Family Member Type Diagnosis Age At Onset Father Problem (finding) hypertension Mother Problem (finding) dementia Father Problem (finding) atrial fibrillation Immunizations Vaccine Date Status Comments Pfizer COVID administered Source: New Imm unization Record Pfizer COVID administered Source: New Imm unization Record Payers Payer name Insurance type Covered alliance party ID Authorafua restrepo(s) Z[facility] Dental Dual Elig [id number] [place] [employer]FC 190 [id number] [facility] [id number] [place] [employer]FC 190 [id number] Social History Type Description Quantity Date Captured [...] Of Treatment Date Type Action Status Goal Tdap Vaccine. Due on 2024 due Goal Unhealthy drug use screening . Due on due Goal Lipid panel. Due on due Goal FIT-DNA. Due on due Goal Mammogram. Due on due Goal Colonoscopy. Due on due Goal HPV. Due on due Goal Depression screening. Due on due Goal Hepatitis C screening. Due o n due Goal PRAPARE ASSESSMENT. Due on due Goal Zoster vaccine (1st). Due on due Goal CT-Colonography. Due on due Goal Influenza vaccine. Due on due Goal FOBT. Due on due Goal FIT. Due on due Goal Tdap. Due on due Goal Tdap Vaccine. Due on 2024 due Goal Unhealthy drug use screening . Due on due Goal FIT-DNA. Due on due Goal Depression screening. Due on due Goal Lipid panel. Due on 025 due Goal Influenza vaccine. Due on due Goal FIT. Due on due Goal Mammogram. Due on due Goal Tdap. Due on due Goal Hepatitis C screening. Due o n due Goal Colonoscopy. Due on 025 due Goal HPV. Due on due Goal Zoster vaccine (). Due on due Goal FOBT. Due on due Goal CT-Colonography. Due on due Goal PRAPARE ASSESSMENT. Due on due Goal Hep A. Due on du e Goal Dietary management education , guidance, and counseling completed Goal Tdap. Due on due Goal PRAPARE ASSESSMENT. Due on due Goal HPV. Due on due Goal FIT-DNA. Due on due Goal Unhealthy drug use screening . Due on due Goal CT-Colonography. Due on due Goal Influenza vaccine. Due on due Goal FOBT. Due on due Goal Mammogram. Due on due Goal FIT. Due on due Goal Colonoscopy. Due on due Goal Zoster vaccine (). Due on due Goal Hepatitis C screening. Due o n due Goal Depression screening. Due on due Goal Tdap Vaccine. Due on 2024 due Goal Lipid panel. Due on due Goal Hep A. Due on du e Goal PRAPARE ASSESSMENT. Due on due Goal Zoster vaccine (). Due on due Goal FIT-DNA. Due on due Goal Colonoscopy. Due on due Goal Influenza vaccine. Due on due Goal Tdap. Due on due Goal Hepatitis C screening. Due o n due Goal Lipid panel. Due on due Goal Depression screening. Due on due Goal FIT. Due on due Goal Unhealthy drug use screening . Due on due Goal CT-Colonography. Due on due Goal Tdap Vaccine. Due on 2022 due Goal FOBT. Due on due Goal Mammogram. Due on due Goal HPV. Due on due Goal Tdap Vaccine. Due on 2022 due Goal PRAPARE ASSESSMENT. Due on M due Goal Mammogram. Due on due Goal Lipid panel. Due on due Goal Colonoscopy. Due on due Goal Tdap. Due on due Goal Depression screening. Due on due Goal Zoster vaccine (). Due on due Goal FOBT. Due on due Goal Influenza vaccine. Due on Ma due Referral Ordered: Dentistry (related to Encounter for screening for dental disorders) ordered Referral Ordered: Referrals: Dentistry. Consult ordered History Of Present Illness Encounter Date Complaint [...]
--- OUTSIDE RECORDS SUMMARY | 2025-01-03 04:45 | XMS_ITS ---
Author Organization [facility] in [place] Address [address] [place] [address] Care Team Providers Care Tool Planer Set Up Operator Name Role Phone Rigo Grant DO Primary Care Provider Jacob Ahuja Unavailable [phone] Allergies No Known Allergies Reason For Referral Reason Compression stocking s Diagnosis 1 Right foot pain (M79 .671) Referral Organization [facility] (PODIATRY) Referring Provider First Name Jacob Referring [...] nonsmoker Section Notes: Never Smoked Vital Signs Weight 174 lbs 01/03/2025 Height 64 in 01/03/2025 Temperature 97 degrees Fahrenheit 01/03/2025 Heart Rate 66 /min 01/03/2025 BMI 29.86 kg/m2 01/03/2025 Oximetry 98 % 01/03/2025 Encounters Encounter Location Date Provider Diagnosis [facility] (PODIATRY) [address] [place] [address] [place] [address] 01/03/2025 Jacob [facility] Posterior tibial tendon dysfunction (PTTD) of right [...] well as stretching exercises. Finally I prescribed Pecatonica 5/325 1 by mouth every 6 hours [...] well as stretching exercises. Finally I prescribed Pecatonica 5/325 1 by mouth every 6 hours [...] Mary FUENTES DDOB:[birth year] (54 yo F)Acc No.[id number]:01/03/2025 Follow Up Patient: Siria CUEVA Mary Kenny Provider: Leo Felix DPM MS :1970 A ge:54 Y S ex:Female Date:01/03/2025 Address:[address] [place] [address] [facility] Pcp:Rigo Grant, DO Check In:08:45 AM [...] M usculoskeletal: Bone/Joint Symptoms d enies. C senior care Pain d enies.?Leg cramps d enies. N [...] bedtime Orally Once a day Requip Trelegy Ellipta(Xbfiyoeeabv-Vezchrsci-Kgxoxk) 100-62.5-25 MCG/ACT Aerosol Powder Breath Activated Inhalation [...] Once a day Taking Requip Taking Trelegy Ellipta(Gpjhvcpnris-Arvolspeh-Mugmph) 100-62.5-25 MCG/ACT Aerosol Powder Breath Activated Inhalation [...] 01/03/2025 Generated for Philippe ardon/Osmin/Stephanieitting on: 0 06/25/2025 07:01 AM EDT History and Physical Notes * [...]
--- OUTSIDE RECORDS SUMMARY | 2025-01-03 05:38 | XMS_ITS ---
Author Organization The [facility] in [place] Address [address] [place] [address] Care Team Providers Care Jewelry Dipper Name Role Phone Rudy LOAIZARigo Primary Care Provider Jacob Ahuja [phone] REASON FOR VISIT pain medication Medications Medication SIG (Take, Route, Frequency, Duration) Notes Start Date End Date Status HYDROcodone-Acetaminophen 5-325 MG 1 tablet as needed Orally every 6 hrs for 7 days 01/03/2025 Active Encounters Encounter Location Date Provider Diagnosis [facility] (PODIATRY) [address] [place] [address] [place] [address] 01/03/2025 Jacob Felix Plan Of Treatment Medication Medication Name Sig Start Date Stop Date Notes HYDROcodone-Acetaminophen 5- 325 MG 1 tablet as needed Orally every 6 hrs for 7 days 01/03/2025 Progress Notes * Mary FUENTES DDOB:[birth year] (54 yo F)Acc No.[id number]:01/03/2025 Patient: Siria Mary CUEVA :1970 A ge:54 Y S ex:Female Address:[place] [address] * Refills Start HYDROcodone-Acetaminophen Tablet, 5-325 MG, Orally, 28 Tablet, 1 tablet as needed, every 6 hrs, 7 days, Refills=0 * true * Date: Generated for Printi ng/Faxing/eTransmitting on: 0 06/25/2025 07:01 AM EDT
--- OUTSIDE RECORDS SUMMARY | 2025-06-24 09:00 | XMS_ITS | Encounter Summary ---
Author Organization [facility] Address [address] [place] [address] Care Team Providers Care Wound Specialist Name Role Phone Eliceo Gómez DO Primary Care Provider [phone] Juan Damico DO Unavailable [phone] Reason for Visit * Reason Comments Gynecologic Exam LMP: SHARON FRIEDMAN 2014HRT : Estrace cream, Estradiol 1MG Last pap 06-12-24 neg.Last mammogram 10-31-23 [facility].Denies breast, urinary, or bowel concerns. Encounter Details Date Type Department Care Team (Latest Contact Info) Description 06/24/2025 9:00 AM EDT Office Visit [facility] [address] [facility] [address] [place] [id number] Juan Damico, [address] [facility] [address] [place] [address] Encounter for gynecological examination without abnormal finding; Encounter for Papanicolaou smear of vagina; Breast cancer screening by mammogram; Hormone replacement therapy; Chronic vulvitis; Night sweats; Dyspareunia in female; Erythema Social History Tobacco Use Types Packs/Day [...] material from your doctor or pharmacy? Never 06/04/2025 Humiliation, Afraid, Rape, and Kick questionnair e Answer Date Recorded Within the last year, have y ou been afraid of your partner or ex-partner? No 06/04/2025 Within the last year, have y ou been humiliated or emotionally abused in other ways by your partner or ex-partner? No Within the last year, have y ou been kicked, hit, slapped, or otherwise physically hurt by your partner or ex-partner? No 06/04/2025 Within the last year, have y ou been raped or forced to have any kind of sexual activity by your partner or ex-partner? No 06/04/2025 Social Connection and Isolat ion Panel [NHANES] Answer Date Recorded In a typical week, how many times do you talk on the phone with family, friends, or neighbors? More than three times a week 06/04/2025 How often do you get togethe r with friends or relatives? More than three times a week 06/04/2025 How often do you attend chur or mormon services? Never 06/04/2025 Do you belong to any clubs o r organizations such as sikh groups, unions, fraternal or athletic groups, or school groups? No 06/04/2025 How often do you attend meet ings of the clubs or organizations you belong to? Never 06/04/2025 Are you , , di vorced, , never , or living with a partner? 06/04/2025 AUDIT-C Answer Date Recorded Q1: How often do you have a drink containing alcohol? Never 06/24/2025 Q2: How many drinks containi ng alcohol do you have on a typical day when you are drinking? Patient does not drink Q3: How often do you have si x or more drinks on one occasion? Never 06/24/2025 Overall Financial Resource Strain (CARDIA) Answe r Date Recorded How hard is it for you to pa y for the very basics like food, housing, medical care, and heating? Not very hard 06/04/2025 PHQ-2 Answer Date Recorded Patient Health Questionnaire-2 Score 0 06/24/2025 [facility] - Occupational Stress Questionnaire Answer Date Recorded Do you feel stress - tense, restless, nervous, or anxious, or unable to sleep at night because your mind is troubled all the time - these days? Not at all 06/04/2025 Exercise Vital Sign Answer Date Recorde d On average, how many days pe r week do you engage in moderate to strenuous exercise (like a brisk walk)? 5 days 06/04/2025 On average, how many minutes do you engage in exercise at this level? 30 min 06/04/2025 Hunger Vital Sign Answer Date Recorded Within the past 12 months, y ou worried that your food would run out before you got the money to buy more. Never true 06/04/20 Within the past 12 months, t he food you bought just didn't last and you didn't have money to get more. Never true 06/04/2025 PRAPARE - Transportation Answer Date Re corded In the past 12 months, has l ack of transportation kept you from medical appointments or from getting medications? No 05/08 In the past 12 months, has l ack of transportation kept you from meetings, work, or from getting things needed for daily living? No 06/04/2025 Housing Stability Vital Sign Answer Melecio e [...] pay the mortgage or rent on time? Yes 06/04/2025 In the past 12 months, how m any times have you moved where you were living? 0 06/04/2025 At any time in the past 12 m [facility], were you homeless or living in a care home (including now)? No 06/04/2025 Comments No Sex and Gender Information Value Date Recorded Sex Assigned at Female 03/13/2023 7:50 AM EDT Legal Sex Female 7:14 PM EDT Gender Identity Female 01/18/2023 7:14 PM EDT Sexual Orientation Not on file documented as of this encounter Last Filed Vital Signs Vital Sign Reading Time Taken Comments Blood Pressure 126/78 06/24/2025 8:57 AM EDT Pulse - - Temperature - - Respiratory Rate - - Oxygen Saturation - - Inhaled Oxygen Concentration - - Weight 74.8 kg (165 lb) 06/24/2025 8:57 AM EDT Height 162.6 cm (5' 4 ) 06/24/2025 8:57 AM EDT Body Mass Index 28.32 06/24/2025 8:57 AM EDT documented in this encounter Functional Status * Audit-C Score Answer Date of Assessment Author 0 06/24/2025 8:59 AM EDT Amando Toro MA * Question Answer Date of Assessment Author Q1: How often do you have a drink containing alcohol? Never 06/24/2025 8:59 AM EDT Nida Toro MA Q2: How many drinks containing alcohol do you have on a typical day when you are drinking? Patient does not drink 06/24/2025 8:59 AM EDT Nida Toro MA Q3: How often do you have six or more drinks on one occasion? Never 06/24/2025 8:59 AM CAROLEET Nida Toro MA * Over the past 2 weeks, how often have you been bothered by any of the following problems? Question Answer Date of Assessment Author Little interest or pleasure in doing things Not at all 06/24/2025 8:59 AM CAROLEET Nida Toro MA Feeling down, depressed, or hopeless Not at all 06/24/2025 8:59 AM EDT Nida Toro MA Patient Health Questionnaire -2 Score 0 06/24/2025 8:59 AM EDT Nida Toro MA documented as of this encounter Progress Notes * Wendy Colon MA - 06/24/2025 9:00 AM EDT Images from the original note were not included. Juan Damico, DO Obstetrics and Gynecology [facility] 1970 06/24/25 [id number] Yearly Wellness Exam Chief Complaint Patient presents with Gynecologic Exam LMP: LAVH BS 2014 HRT: Estrace cream, Estradiol 1MG Last pap 06-12-24 neg. Last mammogram 10-31-23 [facility]. Denies breast, urinary, or bowel concerns. Visit Vitals BP 126/78 Ht 5' 4 Wt 165 lb BMI 28.32 kg/m?? OB Status Hysterectomy Smoking Status Never BSA 1.84 m?? OB History Para Term AB Living 4 [...] Medications Medication Sig Dispense Refill Abilify Maintena 400 MG injection syringe INJECT INTRAMUSCULARLY ONCE A MONTH (BRING TO OFFICE FOR PROVIDER TO ADMINISTER) amphetamine-dextroamphetamine XR (Adderall XR) 25 MG 24 hr capsule Take 25 mg by mouth in the morning and 25 mg before bedtime. mirtazapine (Remeron) 30 MG tablet Natural Vitamin D-3 125 MCG (5000 UT) tablet Take 5,000 Units by mouth Daily zonisamide (Zonegran) 50 MG capsule Take 50 mg by mouth Daily albuterol HFA 90 mcg/act inhaler INHALE 2 PUFFS EVERY 4 HOURS IF NEEDED FOR WHEEZING. 18 g 1 Albuterol-Budesonide (Airsupra) 90-80 MCG/ACT aerosol Inhale 2 Inhalations every 4 (four) hours if needed (for wheezing) 10.7 g 11 atenolol (Tenormin) 50 MG tablet TAKE 1 TABLET BY MOUTH EVERY DAY 90 tablet 1 colestipol (Colestid) 1 g tablet Take 1 g by mouth in the morning and 1 g in the evening. cyproheptadine (Periactin) 4 MG tablet Take 4 mg by mouth as needed at bedtime Daridorexant HCl (Quviviq) 50 MG tablet Take 50 mg by mouth at bedtime estradiol (Estrace) 0.1 MG/GM vaginal cream Apply 0.5g vaginally twice weekly. 42.5 g 1 estradiol (Estrace) 1 MG tablet Take 1 tablet (1 mg) by mouth Daily 90 tablet 3 fluticasone (Flonase) 50 MCG/ACT nasal spray Administer 2 sprays into each nostril Daily Shake gently. Before first use, prime pump. After use, clean tip and replace cap. 16 g 11 L-Theanine 200 MG capsule Take 1 capsule by mouth Daily lisdexamfetamine (Vyvanse) 70 MG capsule Take 70 mg by mouth Daily losartan (Cozaar) 50 MG tablet TAKE 1 TABLET BY MOUTH EVERY DAY 90 tablet 1 meloxicam (Mobic) 15 MG tablet TAKE 1 TABLET BY MOUTH EVERY DAY FOR 30 DAYS Multiple Vitamin (Daily-Elisa Multivitamin) tablet Take 1 tablet by mouth Daily omeprazole (PriLOSEC) [address] capsule Take 1 capsule (40 mg) by mouth in the morning. 90 capsule 3 rOPINIRole (Requip) 1 MG tablet TAKE 1 TABLET BY MOUTH IN THE MORNING 90 tablet 1 rOPINIRole (Requip) 2 MG tablet Take 1 tablet (2 mg) by mouth at bedtime Trelegy Ellipta 100-62.5-25 MCG/ACT aerosol powder INHALE 1 PUFF BY MOUTH DAILY 60 each 1 triamcinolone (Kenalog) 0.1 % cream Apply topically in the morning and before bedtime. to affected area. 45 g 1 No current facility-administered medications for this visit. [...] reconstruction FOOT TENDON SURGERY 11/13/2023 HYSTERECTOMY 2014 [facility] BS INTRAUTERINE DEVICE INSERTION 2013 Mirena OTHER SURGICAL HISTORY scar tissue removed from tonsils ROTATOR CUFF REPAIR Right 10/2016 TONSILLECTOMY 02/11/2021 TUBAL LIGATION Bilateral 2006 VAGINA SURGERY 10/24/2024 excision of vaginal cuff granulation, partial hymenectomy Past Medical History: Diagnosis Date ADHD (attention deficit hyperactivity disorder) Asthma (HCC) Basal cell carcinoma right chest Colon polyp Compressed cervical disc Cystocele Depression Difficulty walking Eczema Endometriosis Fissure, anal Gastroparesis GERD (gastroesophageal reflux disease) Hormone disorder Hypertension Migraine OCD (obsessive compulsive disorder) Panic attack Rectocele RLS (restless legs syndrome) Urinary incontinence Varicella Visual impairment ROS Const: Denies appetite change, fever, chills. Allergy: Denies medication reaction. Ocular: Denies visual acuity change. ENT: Denies hearing change. Endoc: Denies weight loss. Resp: Denies dyspnoea, wheezing. Cardiac: Denies angina, palpitations. GI: Denies nausea, vomiting. Haem: Denies bleeding. : Denies incontinence. MSK: Denies arthralgias, joint oedema. Derm: Denies rash, hair loss. Neuro: Denies ataxia, tremor. Also see HPI for elements of ROS documented therein and for details of positive findings, which shall supersede the foregoing. EXAM GENERAL EXAMINATION alert oriented well developed, well nourished. HEAD: normocephalic atraumatic. EYES: sclera anicteric. EARS: no obvious hearing deficit. NECK/THYROID: neck supple no cervical lymphadenopathy no thyromegaly. LYMPH NODES: no axillary, supraclavicular or inguinal adenopathy. SKIN: warm and dry. HEART: regular rate and rhythm. LUNGS: clear to auscultation bilaterally. CHEST:axillary nodes grossly normal. BREASTS:no masses palpable bilaterally, normal nipples bilaterally - everted - fatty replaced - dense - well supported- axilla negative. ABDOMEN: soft, nontender, nondistended, no masses palpable. BACK: no costovertebral angle tenderness, no obvious scoliosis/kyphosis. FEMALE GENITOURINARY:gynaecological oncologist in room - good hormone - cuff well supported - no studding or induration - side lee negative - adnex negative RECTAL:normal tone , no masses palpable , only small external hemorrhoids. EXTREMITIES no edema. NEUROLOGIC: alert and oriented. PSYCH: cooperative with exam. ICD-10-CM 1. Encounter for gynecological examination without abnormal finding Z01.419 Pelvic and breast exam completed. Findings of today's exam discussed with the patient. Continue MSBE. Ca/Vit D recommendations reviewed with the patient. The patient is to contact the office with anychanges to her gynecological condition or any changes with breast or bleeding. The patient is to return in 1 year or as needed 2. Encounter for Papanicolaou smear of vagina Z12.72 IGP,rfxAptima HPV all,16/18,45 Thinprep collected. Will notify patient if results are abnormal. 3. Breast cancer screening by mammogram Z12.31 Bilateral screening mammogram with tomosynthesis Screening mammogram ordered. Patient to call and schedule. 4. Hormone replacement therapy Z79.890 estradiol (Estrace) 0.1 MG/GM vaginal cream Tolerating well 5. Chronic vulvitis N76.3 6. Night sweats R61 estradiol (Estrace) 1 MG tablet 7. Dyspareunia in female N94.10 estradiol (Estrace) 0.1 MG/GM vaginal cream 8. Erythema L53.9 triamcinolone (Kenalog) 0.1 % cream Uses PRN Has bladder stimulator on phone david. Entered by Wendy Colon MA acting as scribe for Dr. Juan Damico. Signature Wendy Colon MA Date 06/24/25 . Time 9:01 AM . The documentation recorded by the scribe accurately reflects the service(s) I personally performed and the decisions I made. Signature Mario Damico D.O. Date 06/24/25 Time 5:00PM. documented in this encounter Plan of Treatment Upcoming Encounters Date Type Department Care Team (Late st Contact Info) Description 07/09/2025 3:00 PM EDT Office Visit [facility] [address] [phone] Chantale Sweet PA [address] [place] [id number] 11/20/2025 8:30 AM EST Office Visit [facility] [address] [facility] [address] [place] [address] Nelsy Harris, ROAD DESIGN ENGINEER[employer]ED TRAINER [address] [place] [address] Scheduled Orders Name Type Priority Associated Diagnoses Orde r Schedule IGP,rfxAptima HPV all,16/18,45 Pathology and Cytology Routine Encounter for Papanicolaou smear of vagina Ordered: 06/24/2025 Bilateral screening mammogram with tomosynthesis Imaging Routine Breast cancer screening by mammogram Expected: 06/24/2025, Expires: 08/24/2026 documented as of this encounter Visit Diagnoses Diagnosis Encounter for gynecological examination without abnormal finding Encounter for Papanicolaou smear of vagina Breast cancer screening by mammogram Hormone replacement therapy Chronic vulvitis Unspecified vaginitis and vulvovaginitis Night sweats Generalized hyperhidrosis Dyspareunia in female Erythema Unspecified erythematous condition documented in this encounter Additional Health Concerns Assessment Noted Time PHQ-9 Depression Total Score: 0 01/21/20 25 1:00 PM EDT documented as of this encounter Care Teams Wound Specialist Relationship Specialty Start Date End Date Eliceo Gómez DO [address] [facility] [address] [place] [address] PCP - General Family Medicine 04/04/23 Juan Damico DO [address] [place] [address] Referring Physician Obstetrics and Gynecology 05/20/24 documented as of this encounter
--- OUTSIDE RECORDS SUMMARY | 2025-06-25 07:01 | XMS_ITS | Encounter Summary ---
Author Organization [facility] tem Address [id number] [address] [place] [address] Care Team Providers Care Automotive Consultant Name Role Phone Dalia Morales DO, George R Primary Care Provider + Reason for Visit * Reason Onset Date Comments Worsening Symptoms 05/07/2025 Encounter Details Date Type Department Care Team (Late st Contact Info) Description 05/07/2025 Telephone [facility] Neurology, A Department of [facility] [address] [place] [address] Savanah Beyer Worsening Symptoms Social [...] 19, 2025 Appointment Provider:Pauline Christensen MD in [facility] * Telephone Encounter - Kim Acharya [...] We have [facility] after she received Inspire device- [...] 8:51 AM EDT RN called and left for patient to return call to clinic * Telephone Encounter - Joanna Piper - 05/07/2025 8:51 AM EDT Communications Professor received a call from patient regarding below encounter. Patient expressed she was returning call to discuss. Please advise . Patient would like a call back . Mary [phone]. * Telephone Encounter - Kim Acharya RN - 05/07/2025 8:51 AM EDT RN called patient again and had to leave another . If patient calls back, please see if RN is able to take call as our office has reached out 3 times * Telephone Encounter - Kim Acharya RN - 05/07/2025 8:51 AM EDT RN received transferred call from administrative assistant front desk. Patient state she is still taking Requip for her RLS and it is helping with that. He is also takingher iron supplement. She did state that she is having a change in sensation, pain and heaviness in legs. She had an EMG done at [place] [facility] and her licensed insurance agent wanted her to speak with our office regarding results. RN advised on lab orders what will be placed to be completed and we will get EMG results from [place] for review and advise further once this is completed. She stated understanding. * Telephone Encounter - Kim Acharya RN - 05/07/2025 8:51 AM EDT RN attempted to call [facility] in [place] to get reports faxed but no answer x2 and no option to leave VM. Did get fax # from recording. RN faxed request for EMG reports to be sent to our office. * Telephone Encounter - Kiara Álvarez - 05/07/2025 8:51 AM EDT Communications Professor received call from patient in regards to encounter below. Stated she has been speaking with nurse. She is requesting to be sooner by Dr Christensen due to her new symptoms. Please advise she can be reached at [phone] Thank you so much * Telephone Encounter - Pauline Christensen MD - 05/07/2025 8:51 AM EDT We need to find the results of EMG nerve conduction study 1st-if it does show evidence of neuropathy, we need to arrange a follow-up in neuromuscular Clinic rather than with me. I have no issues withseeing her earlier, but I think this might need a neuromuscular specialist. Thank you * Telephone Encounter - Kim Acharya RN - 05/07/2025 8:51 AM EDT Request sent again for EMG results * Telephone Encounter - Kim Acharya RN - 05/07/2025 8:51 AM EDT Called and left VM for patient offering sooner appointment on 05/27 at 11:30 and also asked if she could call office she had her EMG completed at since we have sent to 2 request for records and have been unsuccessful in obtaining records. * Telephone Encounter - Demi Machado - 05/07/2025 8:51 AM EDT Received call today 05/26/25 1:52 from patient in regard to previous message and she said she's unable to accept sooner appt being offered and was letting us know to offer this to another patient. Phone call was disconnected before I could also inform patient that nurse's other part of message stating that we have been unsuccessful in obtaining records regarding EMG so I called patient back with no answer and left this detailed message on her positively identified VM regarding this. * Telephone Encounter - Kiara Álvarez - 05/07/2025 8:51 AM EDT Communications Professor received call from patient regarding encounter below . Patient called to advise that she hasalso called to get results sent over for her EMG. documented in this encounter Plan of Treatment Upcoming Encounters Date Type Department Care Team (Latest Contact Info) Description 06/27/2025 3:30 PM EDT Hospital Encounter [facility] - Endoscopy [address] [address] [place] [id number] Noman Mayo MD [address] [facility] [address] [place] [address] 06/27/2025 3:30 PM EDT - 06/27/2025 4:00 PM EDT Surgery [facility] - Endoscopy [address] [facility] [facility] [place] [address] Noman Mayo MD [address] [facility] [place] [address] ESOPHAGOGASTRODUODENOSCOPY DILATATION 07/15/2025 9:00 AM EDT [facility] Department of [address] [place] [address] Justin Bhat MD [address] [place] [address] [address] [place] [address] 08/19/2025 3:30 PM EDT Office Visit [facility] Neurology, A Department of [address] [place] [phone] Pauline Christensen MD [address] [place] [address] [address] [place] [phone] Scheduled Procedures Name Priority Associated Diagnoses Date/Ti me ESOPHAGOGASTRODUODENOSCOPY DILATATION esophageal dysphagia 06/27/2025 3:30 PM EDT documented as of this encounter Results * Protein electrophoresis, urine (05/14/2025 5:00 AM EDT) Urine Protein Electrophoresis Interp Unremarkable protein distribution, no monoclonal bands 05/16/2025 5:14 PM EDT [facility] Urine Collection / Unknown 05/14/2025 5:00 AM EDT 05/14/2025 7:04 AM EDT us Pauline Christensen MD URINE ORDERABLES Final Result [facility] [address] [place] [address] [address] [place] [address], * Thiamin (Vitamin B1), WB (05/13/2025 6:48 AM EDT) Pathologist [facility] THIAMIN (VITAMIN B1), WB 114 70 - 180 nmol/L 05/15/2025 12:50 PM EDT [facility] Comment: ADDITIONAL INFORMATION This test was developed and its performance characteristics determined by [facility] in a manner consistent with CLIA requirements. This test has not been cleared or approved by the U.S. Food and Drug Administration. Test Performed by: [facility] [address] [place] [id number] Copy Center Operator: Sindi Archibald Ph.D.; CLIA# [id number] Blood Venous blood / Unknown Venipuncture / Unknown 05/13/2025 6:48 AM EDT 05/13/2025 6:48 AM EDT us Pauline Christensen MD LAB BLOOD ORDERABLES Final Resu lt [facility] [address] [place] [address], * Protein electrophoresis, serum (05/13/2025 6:48 AM EDT) Pathologist [facility] TOTAL PROTEIN 6.2 6.0 - 8.0 g/dL 05/14/2025 9:57 AM EDT [facility] ALPHA 1 GLOBULIN 0.3 0.1 - 0.4 g/dL 05/14/2025 9:57 AM EDT [facility] ALPHA 2 GLOBULIN 0.6 0.4 - 1.1 g/dL 05/14/2025 9:57 AM EDT [facility] BETA GLOBULIN 0.8 0.5 - 1.2 g/dL 05/14/2025 9:57 AM EDT [facility] GAMMA GLOBULIN 0.7 0.5 - 1.6 g/dL 05/14/2025 9:57 AM EDT [facility] Protein Electrophoresis Interp Unremarkable protein distribution, no monoclonal bands 05/14/2025 9:57 AM EDT [facility] Albumin 3.9 3.4 - 5.3 g/dL 05/14/2025 9:57 AM EDT [facility] Blood Venous blood / Unknown Venipuncture / Unknown 05/13/2025 6:48 AM EDT 05/13/2025 6:48 AM EDT us Pauline Christensen MD LAB BLOOD ORDERABLES Final Resu lt [facility] [address] [place] [address], [place] [phone] * Heavy Metals Scrn with Demographics (05/13/2025 6:48 AM EDT) HEAVY METAL VENOUS/CAPILLARY Venous 05/14/2025 2:29 PM EDT [facility] [employer] ARSENIC, B <1 <13 ng/mL 05/14/2025 2:29 PM EDT [facility] [employer] Comment: ADDITIONAL INFORMATION This test was developed and its performance characteristics determined by [facility] in a manner consistent with CLIA requirements. This test has not been cleared or approved by the U.S. Food and Drug Administration. CADMIUM, B <0.2 <5.0 ng/mL 05/14/2025 2:29 PM EDT [facility] [employer] Comment: ADDITIONAL INFORMATION This test was developed and its performance characteristics determined by [facility] in a manner consistent with CLIA requirements. This test has not been cleared or approved by the U.S. Food and Drug Administration. MERCURY, B <1 <10 ng/mL 05/14/2025 2:29 PM EDT [facility] [employer] Comment: ADDITIONAL INFORMATION This test was developed and its performance characteristics determined by [facility] in a manner consistent with CLIA requirements. This test has not been cleared or approved by the U.S. Food and Drug Administration. LEAD, B <1.0 <3.5 mcg/dL 05/14/2025 2:29 PM EDT [facility] [employer] Comment: ADDITIONAL INFORMATION Testing performed by Triple Quadrupole Inductively Coupled Plasma-Mass Spectrometry (ICP-MS/MS). This test was developed and its performance characteristics determined by [facility] in a manner consistent with CLIA requirements. This test has not been cleared or approved by the U.S. Food and Drug Administration. Blood Venous blood / Unknown Venipuncture / Unknown 05/13/2025 6:48 AM EDT 05/13/2025 6:48 AM EDT us Pauline Christensen MD LAB BLOOD ORDERABLES Final Resu lt [facility] [address] [place] [address], * Copper, S (05/13/2025 6:48 AM EDT) [facility] COPPER 110 77 - 206 mcg/dL 05/14/2025 2:13 PM EDT [facility] [employer] Comment: ADDITIONAL INFORMATION This test was developed and its performance characteristics determined by [facility] in a manner consistent with CLIA requirements. This test has not been cleared or approved by the U.S. Food and Drug Administration. Test Performed by: [facility] [address] [place] [address] Copy Center Operator: Sindi Archibald Ph.D.; CLIA# [id number] Blood Venous blood / Unknown Venipuncture / Unknown 05/13/2025 6:48 AM EDT 05/13/2025 6:48 AM EDT us Pauline Christensen MD LAB BLOOD ORDERABLES Final Resu lt [facility] [address] [place] [address], * Folate Serum (05/13/2025 6:48 AM EDT) FOLIC ACID >25.0 >5.8 ng/mL 05/13/2025 2:14 PM EDT [facility] Blood Venous blood / Unknown Venipuncture / Unknown 05/13/2025 6:48 AM EDT 05/13/2025 6:48 AM EDT us Pauline Christensen MD LAB BLOOD ORDERABLES Final Resu lt Performing Organization Address City/[facility]/ZIP Co de Phone Number [facility] [address] [place] [id number], * Vitamin B6 Profile (PLP and PA), P (05/13/2025 6:48 AM EDT) PYRIDOXIC ACID (PA), P 6 3 - 30 mcg/L 05/16/2025 4:16 PM EDT [facility] [employer] Comment: ADDITIONAL INFORMATION This test was developed and its performance characteristics determined by [facility] in a manner consistent with CLIA requirements. This test has not been cleared or approved by the U.S. Food and Drug Administration. Test Performed by: [facility] [address] [place] [address] Copy Center Operator: Sindi Archibald Ph.D.; CLIA# [id number] PYRIDOXAL 5-PHOSPHATE (PLP), P 10 5 - 50 mcg/L 05/16/2025 4:16 PM EDT [facility] [employer] Comment: ADDITIONAL INFORMATION This test was developed and its performance characteristics determined by [facility] in a manner consistent with CLIA requirements. This test has not been cleared or approved by the U.S. Food and Drug Administration. Blood Venous blood / Unknown Venipuncture / Unknown 05/13/2025 6:48 AM EDT 05/13/2025 6:48 AM EDT Pauline Christensen MD LAB BLOOD ORDERABLES Final Resu lt [facility] [address] [place] [address], [place] * Vitamin B12 (05/13/2025 6:48 AM EDT) VITAMIN B12 214 180 - 914 pg/mL 05/13/2025 2:15 PM EDT [facility] Blood Venous blood / Unknown Venipuncture / Unknown 05/13/2025 6:48 AM EDT 05/13/2025 6:48 AM EDT Pauline Christensen MD LAB BLOOD ORDERABLES Final Resu lt Performing Organization Address City/[facility]/ZIP Co de Phone Number [facility] [address] [place] [address], [place] [phone] * Thyroid Stimulating Hormone (TSH) (05/13/2025 6:48 AM EDT) TSH 3.16 0.49 - 4.67 uIU/mL 05/13/2025 2:03 PM EDT [facility] Blood Venous blood / Unknown Venipuncture / Unknown 05/13/2025 6:48 AM EDT 05/13/2025 6:48 AM EDT us Pauline Christensen MD LAB BLOOD ORDERABLES Final Resu lt Performing Organization Address City/[facility]/ZIP Co de Phone Number [facility] [address] [place] [address], [place] [phone] * Hemoglobin A1c (05/13/2025 6:48 AM EDT) HEMOGLOBIN A1C 5.2 4.4 - 5.6 % 05/13/2025 10:21 AM EDT [facility] Comment: ADA Guidelines Result HgbA1c Normal : less than 5.7 % Prediabetes : 5.7 % to 6.4 % Diabetes : > 6.4 % Use with caution in patients with abnormal hemoglobin variants as the half-life of red blood cells and in vivo glycation rates are affected. EST. AVERAGE GLUCOSE 103 mg/dL 05/13/2025 10:21 AM EDT [facility] Blood Venous blood / Unknown Venipuncture / Unknown 05/13/2025 6:48 AM EDT 05/13/2025 6:48 AM EDT Pauline Christensen MD LAB BLOOD ORDERABLES Final Resu lt [facility] [address] [place] [address], documented in this encounter Visit Diagnoses Diagnosis Neuropathy- Primary Mononeuritis of unspecified site documented in this encounter Additional Health Concerns Assessment Noted Time PHQ-9 Depression Total Score: 0 10/23/20 23 1:26 PM EST documented as of this encounter Care Teams Automotive Consultant Relationship Specialty Start Date End Date Eliceo Gómez Jr., DO [address] [place] [address], [address] [place] [address] PCP - General Family Medicine 12/11/19 Jenna Butler [address] Consulting Physician Behavioral Health 12/20/23 documented as of this encounter
--- OUTSIDE RECORDS SUMMARY | 2025-06-25 07:01 | XMS_ITS | Encounter Summary ---
Author Organization [facility] Address [address] [place] [address] Care Team Providers Care Candy Starch Mold Printer Name Role Phone Eliceo Gómez DO Primary Care Provider [phone] Eliceo Gómez DO Unavailable [phone] Beata Hernandez Unavailable Juan Damico DO Unavailable [phone] Encounter Details Date Type Department Care Team [...] Recorded Patient Health Questionnaire-2 Score 0 10/03/2023 [facility] - Occupational Stress Questionnaire Answer Date [...] [facility] [address] [place] [phone] Chantale Sweet PA [address] [place] [address] 11/20/2025 8:30 AM EST Office Visit [facility] [address] [place] [address] Nelsy Harris APRN-MANAGER ELECTRICAL [address] [place] [address] documented as of this encounter Procedures Procedure Name Priority Date/Time Associated Diagnosis Comments XR SACRUM COCCYX 2+ VIEWS 12/14/2023 1:52 PM EST documented in this encounter Results * XR sacrum coccyx 2+ views (12/14/2023 1:52 PM EST) Anatomical Region Laterality Modality Sacrum, Coccyx Radiographic Ira ging 12/14/2023 1:52 PM EST Narrative 12/14/2023 1:54 [place] [address] XRay Report Signed Patient: MARY FUENTES MR#: [id number] : 1970 Acct:[id number] Age/Sex: 53 / F ADM Date: 12/14/23 Loc: RAD Attending Dr: Ace Ahumada M.D. Ordering Physician: Ace Ahumada M.D. Date of Service: 12/14/23 Procedure(s): XR sacrum coccyx min 2V Accession Number(s): [id number] cc: Ace Ahumada M.D.; Isatu GÓMEZ [place] [address] Patient Name: MARY FUENTES MRN: [id number] date: 1970 Sex: F Assigned Patient Location: [facility] Current Patient Location: [facility] Accession/Order Number: [id number] Exam Date: 12/14/2023 13:00 Report Date: 12/14/2023 [...] Dacosta M.D. Signed By: 12/14/23 1354 DD/ 135 TD/TT: Risk Advisor: Procedure Note Radiology, Radiologist, MD - 12/14/2023 [facility] [place] [id number] XRay Report Signed Patient: MARY FUENTES DMR#: [id number] : 1970Acct:[id number] Age/Sex: 53 / FADM Date: 12/14/23 Loc: RAD Attending Dr: Ace Ahumada M.D. Ordering Physician: Ace Ahumada M.D. Date of Service: 12/14/23 Procedure(s): XR sacrum coccyx min 2V Accession Number(s): [id number] cc: Ace Ahumada M.D.; Isatu GÓMEZ [facility] [place] [id number] Patient Name: MARY FUENTES MRN: [facility]:[id number] date: 1970 Sex: F Assigned Patient Location: [facility] Current Patient Location: [facility] Accession/Order Number: [id number] Exam Date: 12/14/2023 13:00 Report Date: 12/14/2023 [...] M.D. Signed By:12/14/23 135 DD/ 1352 TD/TT: Risk Advisor: us Generic External Data Provider IMG XR PROCEDURES Final Result documented in this encounter Visit Diagnoses Not on filedocumented in this encounter Care Teams Candy Starch Mold Printer Relationship Specialty Start Date End Date Eliceo Gómez DO [address] [place] [address] PCP - General Family Medicine 04/04/23 Eliceo Gómez DO [address] [place] [address] PCP - [facility] 05/06/23 Beata Hernandez PA [address] [place] [address] Dietitian Nutrition 08/08/23 05/16/24 Juan Damico DO [address] [place] [address] Referring Physician Obstetrics and Gynecology 05/20/24 documented as of this encounter
--- OUTSIDE RECORDS SUMMARY | 2025-06-25 07:01 | XMS_ITS | Encounter Summary ---
Author Organization [facility] Address [address] [place] [address] Care Team Providers Care Manager Data Warehousing Name Role Phone Eliceo Gómez DO Primary Care Provider [phone] Eliceo Gómez DO Unavailable [phone] Beata Hernandez Unavailable Juan Damico DO Unavailable [phone] Encounter Details Date Type Department Care Team [...] 0 10/03/2023 [facility] - Occupational Stress Questionnaire Answer Date Recorded [...] Dermatology [address] [place] [address] Chantale Sweet PA [address] [place] [address] 11/20/2025 8:30 AM EST Office Visit [facility] [address] [place] [address] Nelsy Harris APRN-CATERING COOK [address] [place] [address] documented as of this encounter Procedures Procedure Name Priority Date/Time Associated Diagnosis Comments MR CERVICAL SPINE WO CONTRAST 12/19/2023 7:59 AM EST documented in this encounter Results * MR cervical spine wo contrast (12/19/2023 7:59 AM EST) Anatomical Region Laterality Modality Spine, C-spine Magnetic Resonan ce 12/19/2023 7:59 AM EST Narrative 12/19/2023 8:02 [place] [address] Magnetic Resonance Report Signed Patient: MARY FUENTES MR#: [id number] : 1970 Acct:[id number] Age/Sex: 53 / F ADM Date: 12/19/23 Loc: MRI Attending Dr: Ace Ahumada M.D. Ordering Physician: Ace Ahumada M.D. Date of Service: 12/19/23 Procedure(s): MR cervical spine wo con Accession Number(s): [id number] cc: Ace Ahumada M.D.; Isatu GÓMEZ [facility] [place] [address] Patient Name: MARY FUENTES MRN: [id number] date: 1970 Sex: F Assigned Patient Location: MRI Current Patient Location: MRI Accession/Order Number: [id number] Exam Date: 12/19/2023 07:03 Report Date: 12/19/2023 [...] of the cervical spine. Electronically authenticated by: AINL PERALTA Date: 12/19/2023 07:59 Dictated By: Anil Peralta M.D. Signed By: 12/19/23 0802 DD/ 0759 TD/TT: Broke Beater Machine Operator: Procedure Note Radiology, Radiologist, MD - 12/19/2023 [place] [address] Magnetic Resonance Report Signed Patient: MARY FUENTES DMR#: [id number] : 1970Acct:[id number] Age/Sex: 53 / FADM Date: 12/19/23 Loc: MRI Attending Dr: Ace Ahumada M.D. Ordering Physician: Ace Ahumada M.D. Date of Service: 12/19/23 Procedure(s): MR cervical spine wo con Accession Number(s): [id number] cc: Ace Ahumada M.D.; Isatu GÓMEZ [facility] [place] [id number] Patient Name: MARY FUENTES MRN: [id number] date: 1970 Sex: F Assigned Patient Location: MRI Current Patient Location: MRI Accession/Order Number: [id number] Exam Date: 12/19/2023 07:03 Report Date: 12/19/2023 [...] M.D. Signed By:12/19/23 0802 DD/ 0759 TD/TT: Broke Beater Machine Operator: us Generic External Data Provider IMG MRI PROCEDURE S Final Result documented in this encounter Visit Diagnoses Not on filedocumented in this encounter Care Teams Manager Data Warehousing Relationship Specialty Start Date End Date Eliceo Gómez DO [address] [facility] [address] [place] [phone] PCP - General Family Medicine 04/04/23 Eliceo Gómez DO [address] [place] [address] PCP - [facility] 05/06/23 Beata Hernandez PA [address] [place] [address] Dietitian Nutrition 08/08/23 05/16/24 Juan Damico DO [address] [place] [address] Referring Physician Obstetrics and Gynecology 05/20/24 documented as of this encounter
--- OUTSIDE RECORDS SUMMARY | 2025-06-25 07:01 | XMS_ITS | Encounter Summary ---
Author Organization [facility] Address [address] [place] [address] Care Team Providers Care Commercial Loan Analyst Name Role Phone Eliceo Gómez DO Primary Care Provider [phone] Eliceo Gómez DO Unavailable [phone] Beata Hernandez Unavailable Juan Damico DO Unavailable [phone] Encounter Details Date Type Department Care Team [...] often do you attend chur ch or jainism services? Never 04/14/2023 Do you belong to [...] Recorded Patient Health Questionnaire-2 Score 0 10/03/2023 [facility] - Occupational Stress Questionnaire Answer [...] a care home (including now)? No 10/25/2023 Comments No [...] Dermatology [address] [place] [address] Chantale Sweet PA [address] [place] [address] 11/20/2025 8:30 AM EST Office Visit [facility] [address] [place] [address] Nelsy Harris APRN-E MERCHANT [address] [place] [address] documented as of this encounter Procedures Procedure Name Priority Date/Time Associated Diagnosis Comments XR LUMBAR SPINE 6V W BENDING 12/14/2023 1:52 PM EST documented in this encounter Results * XR LUMBAR SPINE 6V W BENDING (12/14/2023 1:52 PM EST) Anatomical Region Laterality Modality Other 12/14/2023 1:52 PM EST Narrative 12/14/2023 1:54 PM EST [place] [id number] XRay Report Signed Patient: MARY FUENTES MR#: [id number] : 1970 Acct:[id number] Age/Sex: 53 / F ADM Date: 12/14/23 Loc: RAD Attending Dr: Ace Ahumada M.D. Ordering Physician: Ace Ahumada M.D. Date of Service: 12/14/23 Procedure(s): XR lumbar spine 6V w bending Accession Number(s): [id number] cc: Ace Ahumada M.D.; Isatu GÓMEZ [place] [address] Patient Name: MARY FUENTES MRN: [id number] date: 1970 Sex: F Assigned Patient Location: [facility] Current Patient Location: [facility] Accession/Order Number: [id number] Exam Date: 12/14/2023 13:00 Report Date: 12/14/2023 [...] Signed By: 12/14/23 1354 DD/ 135 TD/TT: Sales Promotion Representative: Procedure Note Radiology, Radiologist, - 12/14/[address] [address] XRay Report Signed Patient: MARY FUENTES DMR#: [id number] : 1970Acct:[id number] Age/Sex: 53 / FADM Date: 12/14/23 Loc: RAD Attending Dr: Ace Ahumada M.D. Ordering Physician: Ace Ahumada M.D. Date of Service: 12/14/23 Procedure(s): XR lumbar spine 6V w bending Accession Number(s): [id number] cc: Ace Ahumada M.D.; Isatu GÓMEZ The [address] [address] Patient Name: MARY FUENTES MRN: [facility]:[id number] date: 1970 Sex: F Assigned Patient Location: [facility] Current Patient Location: [facility] Accession/Order Number: [id number] Exam Date: 12/14/2023 13:00 Report Date: 12/14/2023 [...] Nicki Dacosta M.D. Signed By:12/14/23 1354 DD/ 135 TD/TT: Sales Promotion Representative: us Generic External Data Provider [facility] Final Result documented in this encounter Visit Diagnoses Not on filedocumented in this encounter Care Teams Commercial Loan Analyst Relationship Specialty Start Date End Date Eliceo Gómez DO [address] [place] [address] PCP - General Family Medicine 04/04/23 Eliceo Gómez DO [address] [place] [address] PCP - [facility] 05/06/23 Beata Hernandez PA [address] [place] [address] Dietitian Nutrition 08/08/23 05/16/24 Juan Damico DO [address] [place] [address] Referring Physician Obstetrics and Gynecology 05/20/24 documented as of this encounter
--- OUTSIDE RECORDS SUMMARY | 2025-06-25 07:01 | XMS_ITS | Encounter Summary ---
Author Organization [facility] Address [address] [place] [facility] [place] [address] Care Team Providers Care Pin Game Machine Inspector Name Role Phone Eliceo Gómez DO Primary Care Provider Eliceo Gómez DO Unavailable [phone] Beata Hernandez Unavailable Juan Damico DO Unavailable [phone] Encounter Details Date Type Department Care Team (Late st Contact Info) Description 01/11/2024 [facility] [place] [facility] [address] [facility] [address] [place] [address] Eliceo Gómez DO [address] [facility] [facility] [address] [place] [address] Social History Tobacco Use Types Packs/Day Years [...] How often do you attend chur or yazidi services? Never 04/14/2023 Do you [...] Score 0 10/03/2023 [facility] [...] [address] [place] [address] Chantale Sweet PA [address] [place] [address] 11/20/2025 8:30 AM EST Office Visit [facility] [address] [place] [address] Nelsy Harris APRN-GAS INSPECTOR [address] [place] [address] documented as of this encounter Visit Diagnoses Not on filedocumented in this encounter Care Teams Pin Game Machine Inspector Relationship Specialty Start Date End Date Eliceo Gómez DO [address] [place] [address] PCP - General Family Medicine 04/04/23 Eliceo Gómez DO [address] [place] [address] PCP - [facility] 05/06/23 Beata Hernandez PA [address] [place] [address] Dietitian Nutrition 08/08/23 05/16/24 Juan Damico DO [address] [place] [address] Referring Physician Obstetrics and Gynecology 05/20/24 documented as of this encounter
--- OUTSIDE RECORDS SUMMARY | 2025-06-25 07:01 | XMS_ITS | Encounter Summary ---
Author Organization [facility] Address [address] [facility] [place] [address] Care Team Providers Care Fly Fishing Guide Name Role Phone Eliceo Gómez DO Primary Care Provider Eliceo Gómez DO Unavailable [phone] Beata Hernandez Unavailable Juan Damico DO Unavailable [phone] Encounter Details Date Type Department Care Team (Late st Contact Info) Description 12/25/2023 [facility] [place] [facility] [address] [facility] [address] [place] [address] Eliceo Gómez DO [address] [facility] [address] [place] [address] Social History Tobacco Use Types Packs/Day Years [...] [address] [place] [address] Chantale Sweet PA [address] [place] [address] 11/20/2025 8:30 AM EST Office Visit [facility] [address] [place] [address] Nelsy Harris APRN-HAIRSPRING SETTER [address] [place] [address] documented as of this encounter Visit Diagnoses Not on filedocumented in this encounter Care Teams Fly Fishing Guide Relationship Specialty Start Date End Date Eliceo Gómez DO [address] [place] [address] PCP - General Family Medicine 04/04/23 Eliceo Gómez DO [address] [place] [address] PCP - [facility] 05/06/23 Beata Hernandez PA [address] [place] [address] Dietitian Nutrition 08/08/23 05/16/24 Juan Damico DO [address] [place] [address] Referring Physician Obstetrics and Gynecology 05/20/24 documented as of this encounter
--- OUTSIDE RECORDS SUMMARY | 2025-06-25 07:02 | XMS_ITS | Encounter Summary ---
Author Organization [facility] Address [address] [facility] [place] [address] Care Team Providers Care Case Therapist Name Role Phone Eliceo Gómez DO Primary Care Provider [phone] Eliceo Gómez DO Unavailable [phone] Juan Damico DO Unavailable [phone] Encounter Details Date Type Department Care Team (Late st Contact Info) Description 03/17/2025 [facility] [place] [facility] [address] [facility] [address] [place] [address] Eliceo Gómez DO [address] [facility] [address] [place], [place] [address] Social History Tobacco Use Types Packs/Day Years [...] attend chur ch or jainism services? Never 05/01/2024 Do you belong to any clubs o r organizations such as jewish groups, unions, fraternal or athletic groups, or [...] Recorded Patient Health Questionnaire-2 Score 0 01/20/2025 [facility] [place] of Occupat ional Health - Occupational Stress [...] in the past 12 m [facility], were you homeless or living in [...] Dermatology [address] [place] [address] Chantale Sweet PA [address] [place] [address] 11/20/2025 8:30 AM EST Office Visit [facility] [address] [place] [address] Nelsy Harris, MARKET DEVELOPMENT ANALYST-SALES REPRESENTATIVE [employer] [address] [place] [address] documented as of this encounter Visit Diagnoses Not on filedocumented in this encounter Additional Health Concerns Assessment Noted Time PHQ-9 Depression Total Score: 0 01/21/20 25 1:00 PM EDT documented as of this encounter Care Teams Case Therapist Relationship Specialty Start Date End Date Eliceo Gómez DO [address] [place] [address] PCP - General Family Medicine 04/04/23 Eliceo Gómez DO [address] [place] [address] PCP - [facility] 05/06/23 Juan Damico DO [address] [place] [address] Referring Physician Obstetrics and Gynecology 05/20/24 documented as of this encounter
--- OUTSIDE RECORDS SUMMARY | 2025-06-25 07:02 | XMS_ITS | Encounter Summary ---
Author Organization [employer] Address [id number] [address] [place] [address] Care Team Providers Care Asphalt Coater Name Role Phone Dalia Morales DO, George R Primary Care Provider + Reason for Visit * Reason Onset Date Comments Med Refill 11/04/2020 Encounter Details Date Type Department Care Team (Late st Contact Info) Description 11/04/2020 Refill [facility] [address] [place] [address] Demi Machado Chronic mixed headache [...] daily. [facility] [place] on [address] per patient's chart/request. Please call back and advise, callback#: [phone]. * Telephone Encounter - Jessi Franklin RN - 11/04/2020 11:41 AM EST Looks like script was pended/routed on 10/21/2020 per refill encounter dated 10/19/2020- not sure what happened to it after that. Indomethacin 75 mg BID script pended and re-routed to provider for approval and signature. Jessi Franklin RN 11/04/20 6811 documented in this encounter Plan of Treatment Upcoming Encounters Date Type Department Care Team (Latest Contact Info) Description 06/27/2025 3:30 PM EDT Hospital Encounter [facility] - Endoscopy [address] [place] [address], [address] [place] [address] [place] [address] [place] [address], [facility] [address] [place] [address] 06/27/2025 3:30 PM EDT - 06/27/2025 4:00 PM EDT Surgery [facility] - Endoscopy [address] [place] [address], [address] [place] [address] [place] [address] [place] [address] [address] [place] [address] ESOPHAGOGASTRODUODENOSCOPY DILATATION 07/15/2025 9:00 AM EDT [facility], A Department of [address] [place] [address] Justin Bhat MD [address] [place] [address] 101, [address] [place] [address] 08/19/2025 3:30 PM EDT Office [facility], A Department of [address] [place] [address] Pauline Christensen MD [address] [place] [address] 101, [address] [place] [address] Scheduled Procedures Name Priority Associated Diagnoses Date/Ti ne ESOPHAGOGASTRODUODENOSCOPY DILATATION esophageal dysphagia 06/27/2025 3:30 PM EDT documented as of this encounter Visit Diagnoses Diagnosis Chronic mixed headache syndrome- Primary Other headache syndromes documented in this encounter Care Teams Asphalt Coater Relationship Specialty Start Date End Date Eliceo Gómez Jr., [address] [place] [address], [id number] [place] [address] PCP - General Family Medicine 12/11/19 Jenna Butler [address] Consulting Physician Behavioral Health 12/20/23 documented as of this encounter
--- OUTSIDE RECORDS SUMMARY | 2025-06-25 07:02 | XMS_ITS | Encounter Summary ---
Author Organization [facility] Address [address] [facility] [place] [address] Care Team Providers Care Manufacturing Millwright Name Role Phone Eliceo Gómez DO Primary Care Provider [phone] Eliceo Gómez DO Unavailable [phone] Juan Damico DO Unavailable [phone] Encounter Details Date Type Department Care Team (Late st Contact Info) Description 08/28/2024 Abstract [facility] [place] [facility] [address] [facility] [address] [place] [address] Eliceo Gómez DO [address] [facility] [address] [place], [place] [address] Social History Tobacco Use Types Packs/Day Years [...] often do you attend chur ch or bahai services? Never 05/01/2024 Do you belong to [...] Recorded Patient Health Questionnaire-2 Score 0 07/11/2024 [facility] [place] of Occupat ional Health - Occupational Stress [...] Dermatology [address] [place] [address] Chantale Sweet PA [address] [place] [address] 11/20/2025 8:30 AM EST Office Visit [facility] [address] [place] [address] Nelsy Harris, DIRECTOR MEDICAL WRITING-GUM MACHINE FILLER [address] [place] [address] documented as of this encounter Visit Diagnoses Not on filedocumented in this encounter Care Teams Manufacturing Millwright Relationship Specialty Start Date End Date Eliceo Gómez DO [address] [place] [address] PCP - General Family Medicine 04/04/23 Eliceo Gómez DO [address] [place] [address] PCP - [facility] 05/06/23 Juan Damico DO [address] [place] [address] Referring Physician Obstetrics and Gynecology 05/20/24 documented as of this encounter
--- OUTSIDE RECORDS SUMMARY | 2025-06-25 07:02 | XMS_ITS | Encounter Summary ---
Author Organization [facility] Address [address] [facility] [place] [address] Care Team Providers Care Public Health Educator Name Role Phone Eliceo Gómez DO Primary Care Provider [phone] Eliceo Gómez DO Unavailable [phone] Juan Damico DO Unavailable [phone] Encounter Details Date Type Department Care Team (Late st Contact Info) Description 04/30/2025 Abstract [facility] [place] [facility] [address] [facility] [address] [place] [address] Eliceo Gómez DO [address] [facility] [address] [place] [address] Social History Tobacco Use Types Packs/Day Years [...] often do you attend chur ch or yarsani services? Never 05/01/2024 Do you belong to any clubs o r organizations such as scientology groups, unions, fraternal or athletic groups, or [...] Recorded Patient Health Questionnaire-2 Score 0 01/20/2025 [facility] [place] of Occupat ional Health - Occupational Stress [...] Dermatology [address] [place] [address] Chantale Sweet PA [address] [place] [address] 11/20/2025 8:30 AM EST Office Visit [facility] [address] [place] [address] Nelsy Harris, PRODUCTION TECHNICIAN-SENIOR ENERGY MARKET COORDINATOR [address] [place] [address] documented as of this encounter Visit Diagnoses Not on filedocumented in this encounter Additional Health Concerns Assessment Noted Time PHQ-9 Depression Total Score: 0 01/21/20 25 1:00 PM EDT documented as of this encounter Care Teams Public Health Educator Relationship Specialty Start Date End Date Eliceo Gómez DO [address] [place] [address] PCP - General Family Medicine 04/04/23 Eliceo Gómez DO [address] [place] [address] PCP - [facility] 05/06/23 Juan Damico DO [address] [place] [address] Referring Physician Obstetrics and Gynecology 05/20/24 documented as of this encounter
--- OUTSIDE RECORDS SUMMARY | 2025-06-25 07:02 | XMS_ITS | Encounter Summary ---
Author Organization [facility] Address [address] [place] [address] Care Team Providers Care Truck Packer Name Role Phone Eliceo Gómez DO Primary Care Provider [phone] Eliceo Gómez DO Unavailable [phone] Beata Hernandez Unavailable Juan Damico DO Unavailable [phone] Encounter Details Date Type Department Care [...] often do you attend chur ch or worship services? Never 04/14/2023 Do you [...] Recorded Patient Health Questionnaire-2 Score 0 10/03/2023 [facility] - Occupational Stress Questionnaire Answer [...] [address] [place] [address] Chnatale Sweet PA [address] [place] [address] 11/20/2025 8:30 AM EST Office Visit [facility] [address] [place] [address] Nelsy Harris APRN-COMMUNICATION SPEC [address] [place] [address] documented as of this encounter Procedures Procedure Name Priority Date/Time Associated Diagnosis Comments ECG 12-LEAD 11/03/2023 8:38 AM EST documented in this encounter Results * ECG 12-LEAD (11/03/2023 8:38 AM EST) Anatomical Region Laterality Modality Other 11/03/2023 8:38 AM EST Narrative 11/06/2023 5:22 PM EST The [place] [id number] Electrocardiograph Report Signed Patient: MARY FUENTES MR#: [id number] : 1970 Acct:[id number] Age/Sex: 53 / F ADM Date: Loc: SURGOUT Attending Dr: Sade Felix D.P.M. Ordering Physician: Sade Felix D.P.M. Date of Service: 11/03/23 Procedure(s): ECG 12 lead Accession Number(s): [id number] cc: [facility] Test Date: 2023-11-03 Pat Name: MARY FUENTES Department: Room: - Gender: Female Faculty Research Physician: : 1970 Requested By: SADE FELIX Order Number: [id number] Reading MD: RIGO EUCEDA Measurements Intervals Nunda Rate: 52 P: -2 SC: 171 QRS: 9 QRSD: 92 T: 8 QT: 437 QTc: 410 Interpretive Statements SINUS BRADYCARDIA WITH SINUS ARRHYTHMIA No previous ECG available for comparison Electronically Signed On 11-06-2023 17:22:20 EST by RIGO EUCEDA Dictated By: Rigo Euceda D.O. Signed By: 11/06/23 1722 DD/ 0838 TD/TT: Inserting Press Operator: Procedure Note Radiology, Radiologist, MD - 11/06/2023 The [place] [id number] Electrocardiograph Report Signed Patient: MARY FUENTES DMR#: [id number] : 1970Acct:[id number] Age/Sex: 53 / FADM Date: Loc: SURGOUT Attending Dr: Sade Felix D.P.M. Ordering Physician: Sade Felix D.P.M. Date of Service: 11/03/23 Procedure(s): ECG 12 lead Accession Number(s): [id number] cc: [facility] Test Date: 2023-11-03 Pat Name: MARY FUENTES Department: Room: - Gender: Female Faculty Research Physician: : 1970 Requested By: SADE FELIX Order Number: [id number] Reading MD: RIGO EUCEDA Measurements Intervals Nunda Rate: 52 P: -2 SC: 171 QRS: 9 QRSD: 92 T: 8 QT: 437 QTc: 410 Interpretive Statements SINUS BRADYCARDIA WITH SINUS ARRHYTHMIA No previous ECG available for comparison Electronically Signed On 11-06-2023 17:22:20 EST by RIGO EUCEDA Dictated By: Rigo Euceda D.O. Signed By:11/06/23 1722 DD/ 0838 TD/TT: Inserting Press Operator: us Generic External Data Provider [facility] Final Result documented in this encounter Visit Diagnoses Not on filedocumented in this encounter Care Teams Truck Packer Relationship Specialty Start Date End Date Eliceo Gómez DO [address] [place] [address] PCP - General Family Medicine 04/04/23 Eliceo Gómez DO [address] [place] [address] PCP - [facility] 05/06/23 Beata Hernandez PA [address] [place] [address] Dietitian Nutrition 08/08/23 05/16/24 Juan Damico DO [address] [place] [address] Referring Physician Obstetrics and Gynecology 05/20/24 documented as of this encounter
--- OUTSIDE RECORDS SUMMARY | 2025-06-25 07:02 | XMS_ITS | Encounter Summary ---
Author Organization [facility] Address [address] [facility] [place] [address] Care Team Providers Care Director Service Name Role Phone Eliceo Gómez DO Primary Care Provider [phone] Eliceo Gómez DO Unavailable [phone] Juan Damico DO Unavailable [phone] Encounter Details Date Type Department Care Team (Late st Contact Info) Description 08/05/2024 Abstract [facility] [place] [facility] [address] [facility] [address] [place] [address] Eliceo Gómez DO [address] [facility] [address] [place], [place] [phone] Social History Tobacco Use Types Packs/Day Years [...] often do you attend chur ch or methodist services? Never 05/01/2024 Do you [...] Recorded Patient Health Questionnaire-2 Score 0 07/11/2024 [facility] [place] of Occupat ional Health - Occupational Stress [...] the past 12 m [facility], were you homeless or living in [...] Dermatology [address] [place] [address] Chantale Sweet PA [address] [place] [address] 11/20/2025 8:30 AM EST Office Visit [facility] [address] [place] [address] Nelsy Harris, ALPINE GUIDE-CSR RETAIL [address] [place] [address] documented as of this encounter Visit Diagnoses Not on filedocumented in this encounter Care Teams Director Service Relationship Specialty Start Date End Date Eliceo Gómez DO [address] [place] [address] PCP - General Family Medicine 04/04/23 Eliceo Gómez DO [address] [place] [address] PCP - [facility] 05/06/23 Juan Damico DO [address] [place] [address] Referring Physician Obstetrics and Gynecology 05/20/24 documented as of this encounter
--- OUTSIDE RECORDS SUMMARY | 2025-06-25 07:02 | XMS_ITS | Encounter Summary ---
Author Organization [employer] Address [id number] [address] [place] [address] Care Team Providers Care Child Care Attendant Name Role Phone Dalia Morales DO, George R Primary Care Provider + Encounter Details Date Type Department Care Team (Late st Contact Info) Description 01/04/2021 Orders Only [facility] Pul[facility] Medicine [address] [place] [address] Daisy Ley LPN Asthma, unspecified asthma [...] Description 06/27/2025 3:30 PM EDT Hospital Encounter [facility] - Endoscopy [address] [place] [address], [address] [place] [address] Noman Mayo MD [address] [facility], [facility] 103 [place] [address] 06/27/2025 3:30 PM EDT - 06/27/2025 4:00 PM EDT Surgery [facility] - Endoscopy [address] [place] [address], [address] [place] [address] Noman Mayo MD [address] [facility], [facility] 103 [place] [address] ESOPHAGOGASTRODUODENOSCOPY DILATATION 07/15/2025 9:00 AM EDT Office Visit [facility] Neurology, A Department of [address] [place] [address] Justin Bhat MD [address] [place] [address] 101, [address], [address] [place] [address] 08/19/2025 3:30 PM EDT Office Visit [facility] Neurology, A Department of [address] [place] [address] Pauline Christensen MD [address] [place] [address] 101, [address], [address] [place] [address] Scheduled Procedures Name Priority Associated Diagnoses Date/Ti me ESOPHAGOGASTRODUODENOSCOPY DILATATION esophageal dysphagia 06/27/2025 3:30 PM EDT documented as of this encounter Procedures Procedure [...] Alpha 1 antitrypsin targeting genotyping (12/25/2020) 12/25/2020 [facility] BOOKBINDER CHIEF-blogfoster LAB BLOOD ORDERABLES Fi nal Result QUEST * Immunoglobulins (12/25/2020) 12/25/2020 C[facility]ana BOOKBINDER CHIEF-CLAIMS COORDINATOR LAB BLOOD ORDERABLES Fi nal Result QUEST * Respiratory allergy panel (12/25/2020) Blood Venous blood / Unknown 12/25/2020 Cuyana BOOKBINDER CHIEF-CLAIMS COORDINATOR LAB BLOOD ORDERABLES Fi nal Result Performing Organization Address City/[facility] Co de Phone Number QUEST documented in this encounter Visit Diagnoses Diagnosis Asthma, unspecified asthma severity, unspecified whether complicated, unspecified whether persistent documented in this encounter Care Teams Child Care Attendant Relationship Specialty Start Date End Date Eliceo Gómez Jr., DO [address] [place] [address], [address] [place] [address] PCP - General Family Medicine 12/11/19 Jenna Butler [address] Consulting Physician Behavioral Health 12/20/23 documented as of this encounter
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
--- OUTSIDE RECORDS SUMMARY | 2025-06-25 07:02 | XMS_ITS | Encounter Summary ---
Author Organization [facility] tem Address [id number] [address] [place] [address] Care Team Providers Care Assistant Professor Name Role Phone Dalia Morales DO, George R Primary Care Provider + Reason for Visit * Reason Onset Date Comments Results 06/04/2025 Encounter Details Date Type Department Care Team (Late st Contact Info) Description 06/04/2025 Telephone [facility] Neurology, A Department of [facility] [address] [facility] [address], [address] [place] [address] Joanna Piper Results Social History Tobacco Use Types Packs/Day Years [...] got money to buy more. Never True 06/06/2025 Within the past 12 months th e food we bought just didn't last and we didn't have money to get more. Never True 06/06/2025 Purpose - Life Answer Date Recorded Purpose and direction in life Unknown Comments No Sex and Gender Information Value Date Recorded Sex Assigned at Female 07/28/2020 6:39 PM EDT Legal Sex Female 12:08 PM EDT Gender Identity Female 07/28/2020 6:39 PM EDT Sexual Orientation Not on file documented as of this encounter Miscellaneous Notes * Telephone Encounter - Joanna Piper - 06/04/2025 3:45 PM EDT Forging Press Operator received a call from the patient regarding test results. Patient would like a call bck to discuss lab results please. Please advise. Contact info Mary [phone]. Thank you so much. * Telephone Encounter - Pauline Christensen MD - 06/04/2025 3:45 PM EDT Lab results were normal, except for low vitamin B12 levels. This has been low in the past as well. Does she take/has she taken B12 supplement? If she has been taking oral B12 supplement, then we may need to switch to injectable. However, if she is not taking it currently, I would start with B12 1000 mcg daily p.o. daily. She should also be taking regular gptq-vds-fhdizou vitamin-D supplement every day. Did she have her EMG results sent to us? Thank you * Telephone Encounter - Kim Acharya RN - 06/04/2025 3:45 PM EDT RN called and left for patient advising on results and recommendations. Also advised that we have been unsuccessful in getting EMG results if she could reach out to that office to get them faxed to our office. * Telephone Encounter - Savanah Beyer - 06/04/2025 3:45 PM EDT Patient [phone] called and instructional writer attempted to reach RN. Forging Press Operator placed patient on hold in an effort to reach RN. Call was disconnected. Patient stated that it is difficult to contact office due to working during office hours. * Telephone Encounter - Meet Huang - 06/04/2025 3:45 PM EDT Forging Press Operator received a call from patient in regards to the previous encounter. Forging Press Operator relayed lab results and recommendations in previous encounter to patient. Patient voiced understanding. Patient is currently taking oral B12 supplement and has been taking them for several years. Patientstates that she is also taking vitamin-D supplement every day. Patient had her EMG done at [facility] ([phone]). Forging Press Operator provider our fax number and informed patient that we have not received results. Patient states that she will call [facility] and request results be sent to our office. * Telephone Encounter - Pauline Christensen MD - 06/04/2025 3:45 PM EDT The EMG/nerve conduction does show evidence of radiculopathy and neuropathy. I would suggest establishing follow-up in the neuromuscular clinic here. Thank you * Telephone Encounter - Kim Acharya RN - 06/04/2025 3:45 PM EDT RN called and left VM for patient to call back and schedule per Dr. Christensen's recommendations. * Telephone Encounter - Joanna Piper - 06/04/2025 3:45 PM EDT Forging Press Operator received a call from patient to schedule with neuromuscular doctor based on below encounter.Forging Press Operator scheduled with Dr. Bhat 07/08/25 at 2 pm. documented in this encounter Plan of Treatment Upcoming Encounters Date Type Department Care Team (Latest Contact Info) Description 06/27/2025 3:30 PM EDT Hospital Encounter [facility] - Endoscopy [address] [facility], [address] [place] [address] Noman Mayo MD 5700 [facility] 103 [place] [address] 06/27/2025 3:30 PM EDT - 06/27/2025 4:00 PM EDT Surgery [facility] - Endoscopy [address] [place] [address], [address] [place] [address] Noman Mayo MD 57[address] [facility] [address] [place] [address] ESOPHAGOGASTRODUODENOSCOPY DILATATION 07/15/2025 9:00 AM EDT Office Visit [facility] Neurology, A Department of [address] [place] [address] Justin Bhat MD [address] [place] [address] 101, [address], 103 [place] [address] 08/19/2025 3:30 PM EDT Office Visit [facility] Neurology, A Department of [address], [address] [place] [address] Pauline Christensen MD [address] [place] [address] 101, [address], [address] [place] [address] Scheduled Procedures Name Priority Associated Diagnoses Date/Ti me ESOPHAGOGASTRODUODENOSCOPY DILATATION esophageal dysphagia 06/27/2025 3:30 PM EDT documented as of this encounter Visit Diagnoses Not on filedocumented in this encounter Additional Health Concerns Assessment Noted Time PHQ-9 Depression Total Score: 0 10/23/20 23 1:26 PM EST documented as of this encounter Care Teams Assistant Professor Relationship Specialty Start Date End Date Eliceo Gómez Jr., DO [address] [place] [address], [address] [place] [address] PCP - General Family Medicine 12/11/19 Jenna Butler [address] Consulting Physician Behavioral Health 12/20/23 documented as of this encounter
--- OUTSIDE RECORDS SUMMARY | 2025-06-25 07:02 | XMS_ITS | Encounter Summary ---
Author Organization [employer] Address [id number] [address] [place] [address] Care Team Providers Care Anesthesia Resident Name Role Phone Dalai Morales DO, George R Primary Care Provider + Reason for Visit * Reason Comments Med Refill Encounter Details Date Type Department Care Team (Late st Contact Info) Description 01/09/2021 Refill [facility] [address] [place] [address] Pauline Christensen MD [address] [place] [address] 101, [address], [address] [place] [address] Chronic mixed headache syndrome Social [...] Description 06/27/2025 3:30 PM EDT Hospital Encounter [facility] - Endoscopy [address] [facility], [address] [place] [address] Noman Mayo MD [address] [facility], [address] [place] [address] 06/27/2025 3:30 PM EDT - 06/27/2025 4:00 PM EDT Surgery [facility] - Endoscopy [address] [facility], [address] [place] [address] Noman Mayo MD [address] [facility], [address] [place] [address] ESOPHAGOGASTRODUODENOSCOPY DILATATION 07/15/2025 9:00 AM EDT Office Visit [facility], A Department of [address], [address] [place] [address] Justin Bhat MD [address] [place] [address] 101, [address], 103 [place] [address] 08/19/2025 3:30 PM EDT [facility], [facility] Department of [address], [address] [place] [address] Pauline Christensen MD [address] [place] [address] 101, [address], [address] [place] [address] Scheduled Procedures Name Priority Associated Diagnoses Date/Ti me ESOPHAGOGASTRODUODENOSCOPY DILATATION esophageal dysphagia 06/27/2025 3:30 PM EDT documented as of this encounter Visit Diagnoses Diagnosis Chronic mixed headache syndrome Other headache syndromes documented in this encounter Care Teams Anesthesia Resident Relationship Specialty Start Date End Date Eliceo Gómez Jr., [address] [place] [address], [address], [place] [address] PCP - General Family Medicine 12/11/19 Jenna Butler [address] Consulting Physician Behavioral Health 12/20/23 documented as of this encounter
--- OUTSIDE RECORDS SUMMARY | 2025-06-25 07:02 | XMS_ITS | Encounter Summary ---
Author Organization [facility] Address [address] [place] [address] Care Team Providers Care Farm Adviser Name Role Phone Eliceo Gómez DO Primary Care Provider [phone] Eliceo Gómez DO Unavailable [phone] Juan Damico DO Unavailable [phone] Encounter Details Date Type Department Care Team [...] you attend chur or anabaptism services? Never 05/01/2024 Do you [...] Recorded Patient Health Questionnaire-2 Score 0 07/11/2024 [facility] of Occupat ional Health [...] any time in the past [address] [facility], were you homeless or living in a [...] Dermatology [address] [place] [address] Chantale Sweet PA [address] [place] [address] 11/20/2025 8:30 AM EST Office Visit [facility] [place] [facility] [address] [place] [address] Nelsy Harris, CASE MAKING MACHINE OPERATOR-CARPENTER'S HELPER [address] [place] [address] documented as of this encounter Procedures Procedure Name Priority Date/Time Associated Diagnosis Comments XR FOOT RT MIN 3V 08/01/2024 5:0 1 AM EDT documented in this encounter Results * XR FOOT RT MIN 3V (08/01/2024 5:01 AM EDT) Anatomical Region Laterality Modality Other 08/01/2024 5:01 AM EDT Narrative 08/01/2024 5:04 [place] [address] XRay Report Signed Patient: MARY FUENTES MR#: [id number] : 1970 Acct:[id number] Age/Sex: 54 / F ADM Date: 07/30/24 Loc: EC Attending Dr: Sade Felix D.P.M. Ordering Physician: Sade Felix D.P.M. Date of Service: 07/30/24 Procedure(s): XR foot RT min 3V Accession Number(s): [id number] cc: Sade Felix D.P.M.; Isatu GÓMEZ [address] [address] Patient Name: MARY FUENTES MRN: [id number] date: 1970 Sex: F Assigned Patient Location: EC Current Patient Location: Accession/Order Number: [id number] Exam Date: 07/30/2024 09:46 Report Date: 08/01/2024 [...] M.D. Signed By: 08/01/24503 DD/ 0 TD/TT: Knowledge Management Consultant: Procedure Note Radiology, Radiologist, MD - 08/01/2024 [place] [address] XRay Report Signed Patient: MARY FUENTES DMR#: [id number] : 1970Acct:[id number] Age/Sex: 54 / FADM Date: 07/30/24 Loc: Attending Dr: Sade Felix D.P.M. Ordering Physician: Sade Felix D.P.M. Date of Service: 07/30/24 Procedure(s): XR foot RT min 3V Accession Number(s): [id number] cc: Sade Felix D.P.M.; Isatu GÓMEZ [place] [address] Patient Name: MARY FUENTES MRN: [id number] date: 1970 Sex: F Assigned Patient Location: Current Patient Location: Accession/Order Number: [id number] Exam Date: 07/30/2024 09:46 Report Date: 08/01/2024 [...] Dictated By: Adam Oliveros M.D. Signed By:08/01/24 050 DD/ 050 TD/TT: Knowledge Management Consultant: Generic External Data Provider [facility] Final Result documented in this encounter Visit Diagnoses Not on filedocumented in this encounter Care Teams Farm Adviser Relationship Specialty Start Date End Date Eliceo Gómez DO [address] [place] [address] PCP - General Family Medicine 04/04/23 Eliceo Gómez DO [address] [place] [address] PCP - [facility] 05/06/23 Juan Damico DO [address] [place] [address] Referring Physician Obstetrics and Gynecology 05/20/24 documented as of this encounter
--- OUTSIDE RECORDS SUMMARY | 2025-06-25 07:02 | XMS_ITS | Encounter Summary ---
Author Organization [facility] Address [address] [place] [address] Care Team Providers Care Triple Drum Operator Name Role Phone Eliceo Gómez DO Primary Care Provider Eliceo Gómez DO Unavailable [phone] Beata Hernandez Unavailable Juan Damico DO Unavailable [phone] Encounter Details Date Type Department Care Team (Late st Contact Info) Description 11/13/2023 Orders Only [facility] [place] [facility] [address] [place] [address] A, Unknown Practice [address] [place] [address] Social History Tobacco Use Types Packs/Day Years [...] Recorded Patient Health Questionnaire-2 Score 0 10/03/2023 [facility] of Occupat ional [...] in a halfway (including now)? No 10/25/2023 Comments No Sex [...] [address] [place] [address] Chantale Sweet PA [address] [place] [address] 11/20/2025 8:30 AM EST Office Visit [facility] [address] [place] [address] Nelsy Harris APRN-KWESI [address] [place] [address] documented as of this encounter Procedures Procedure [...] on filedocumented in this encounter Care Teams Triple Drum Operator Relationship Specialty Start Date End Date Eliceo Gómez DO [address] [place] [address] PCP - General Family Medicine 04/04/23 Eliceo Gómez DO [address] [place] [address] PCP - [facility] 05/06/23 Beata Hernandez PA [address] [place] [address] Dietitian Nutrition 08/08/23 05/16/24 Juan Damico DO [address] [place] [address] Referring Physician Obstetrics and Gynecology 05/20/24 documented as of this encounter
--- OUTSIDE RECORDS SUMMARY | 2025-06-25 07:02 | XMS_ITS | Encounter Summary ---
Author Organization [facility] Address [address] [facility] [place] [address] Care Team Providers Care Quality Control Lab Technician Name Role Phone Eliceo Gómez DO Primary Care Provider Eliceo Gómez DO Unavailable [phone] Beata Hernandez Unavailable Juan Damico DO Unavailable [phone] Encounter Details Date Type Department Care Team (Late st Contact Info) Description 11/24/2023 Abstract [facility] [place] [facility] 230 [address] [facility] [address] [place] [address] Eliceo Gómez DO [address] [facility] [address] [place] [address] Social History Tobacco Use Types Packs/Day Years [...] [address] [place] [address] Chantale Sweet PA [address] [place] [address] 11/20/2025 8:30 AM EST Office Visit [facility] [address] [place] [address] Nelsy Harris APRN-DIPPER MACHINE OPERATOR [address] [place] [address] documented as of this encounter Visit Diagnoses Not on filedocumented in this encounter Care Teams Quality Control Lab Technician Relationship Specialty Start Date End Date Eliceo Gómez DO [address] [place] [address] PCP - General Family Medicine 04/04/23 Eliceo Gómez DO [address] [place] [address] PCP - [facility] 05/06/23 Beata Hernandez PA [address] [place] [address] Dietitian Nutrition 08/08/23 05/16/24 Juan Damico DO [address] [place] [address] Referring Physician Obstetrics and Gynecology 05/20/24 documented as of this encounter
--- OUTSIDE RECORDS SUMMARY | 2025-06-25 07:02 | XMS_ITS | Encounter Summary ---
Author Organization [facility] Address [address] [facility] [place] [address] Care Team Providers Care Copper Etcher Name Role Phone Eliceo Gómez DO Primary Care Provider [phone] Eliceo Gómez DO Unavailable [phone] Juna Damico DO Unavailable [phone] Encounter Details Date Type Department Care Team (Late st Contact Info) Description 03/06/2025 Abstract [facility] [place] [facility] 230 [address] [facility] [address] [place] [address] Eliceo Gómez DO [address] [facility] [address] [place], [place] [phone] Social History Tobacco Use Types Packs/Day Years [...] attend chur ch or restorationism services? Never 05/01/2024 Do you [...] Recorded Patient Health Questionnaire-2 Score 0 01/20/2025 [facility] [place] of Occupat ional Health - Occupational Stress [...] Dermatology [address] [place] [address] Chantale Sweet PA [address] [place] [address] 11/20/2025 8:30 AM EST Office Visit [facility] [address] [place] [address] Nelsy Harris, DIRECTOR PEDIATRIC-CREDIT CORRESPONDENCE CLERK [address] [place] [address] documented as of this encounter Visit Diagnoses Not on filedocumented in this encounter Additional Health Concerns Assessment Noted Time PHQ-9 Depression Total Score: 0 01/21/20 25 1:00 PM EDT documented as of this encounter Care Teams Copper Etcher Relationship Specialty Start Date End Date Eliceo Gómez DO [address] [place] [address] PCP - General Family Medicine 04/04/23 Eliceo Gómez DO [address] [place] [address] PCP - [facility] 05/06/23 Juan Damico DO [address] [place] [address] Referring Physician Obstetrics and Gynecology 05/20/24 documented as of this encounter
--- OUTSIDE RECORDS SUMMARY | 2025-06-25 07:02 | XMS_ITS | Encounter Summary ---
Author Organization [facility] Address [address] [place] [address] Care Team Providers Care Installation Helper Name Role Phone Eliceo Gómez DO Primary Care Provider Eliceo Gómez DO Unavailable [phone] Beata Hernandez Unavailable Juan Damico DO Unavailable [phone] Encounter Details Date Type Department Care Team (Late st Contact Info) Description 12/14/2023 Orders Only [facility] [place] [facility] [address] [place] [address] A, Unknown Practice [address] [place] [address] Social History Tobacco Use Types [...] Recorded Patient Health Questionnaire-2 Score 0 10/03/2023 [facility] of Occupat ional Health [...] [address] [place] [address] Chantale Sweet PA [address] [place] [address] 11/20/2025 8:30 AM EST Office Visit [facility] [address] [place] [address] Nelsy Harris APRN-KWESI [address] [place] [address] documented as of this encounter Procedures Procedure [...] on filedocumented in this encounter Care Teams Installation Helper Relationship Specialty Start Date End Date Eliceo Gómez DO [address] [place] [id number] PCP - General Family Medicine 04/04/23 Eliceo Gómez DO [address] [place] [address] PCP - [facility] 05/06/23 Beata Hernandez PA [address] [place] [address] Dietitian Nutrition 08/08/23 05/16/24 Juan Damico DO [address] [place] [address] Referring Physician Obstetrics and Gynecology 05/20/24 documented as of this encounter
--- OUTSIDE RECORDS SUMMARY | 2025-06-25 07:02 | XMS_ITS | Clinical Summary ---
Author Organization [email or web address] Address [id number] [address] [place] [address] Care Team Providers Care Smocker Name Role Phone Dalia Morales DO, George R Primary Care Provider + Allergies Active Allergy Reactions Criticality Noted Date Comments Risperidone Other (See Comments) Low 08/28/2020 My Boobs Leak Medications rOPINIRole (REQUIP) 2 mg tablet Take 1 tablet (2 mg total) by mouth nightly. 1 mg in the morning 11/29/19 20 Active fluticasone-um eclidin-vilant er (TRELEGY ELLIPTA) 100-62.5-25 mcg blister with deviceIndicati ons:Asthma, unspecified asthma severity, unspecified whether complicated, unspecified whether persistent Inhale 1 puff in the morning. 60 each 5 05/31/20 22 Active atenoloL (TENORMIN) 25 mg tabletIndicati ons:hypertensi [...] 23 Active ARIPiprazole (ABILIFY MAINTENA) 300 mg suspension,ext ended rel recon Inject 1.5 mL (300 mg total) into the appropriate muscle every 28 days. Active fremanezumab-v frm (AJOVY AUTOINJECTOR) 225 mg/1.5 mLIndications: Other migraine without status migrainosus, not intractable inject 1 AND 1/2 milliliters subcutaneously every 28 DAYS 1.5 mL 5 10/23/20 Active Additional Information Patient not taking.Reported on 06/06/2025 rimegepant 75 mg tablet,disinte gratingIndicat ions:Other migraine without status migrainosus, not intractable Dissolve 1 tablet on tongue daily as needed (Migraine headache). 12 tablet 4 10/23/20 Active Additional Information Patient not taking.Reported on 06/06/2025 galcanezumab-g nlm (EMGALITY PEN) 120 mg/mL pen injectorIndica tions:Other migraine without status migrainosus, not intractable INJECT 120MG SUBCUTANEOUSLY ONCE EVERY 30 DAYS 1 mL 5 04/21/20 25 Active losartan (COZAAR) 25 mg tablet Take by mouth daily. Active baclofen (LIORESAL) 10 mg tablet TAKE 1/2 TO 1 TABLET BY MOUTH 3 TIMES A DAY 05/06/20 25 Active cholecalcifero l, vitamin D3, 5,000 units tablet Take 1 tablet (5,000 Units total) by mouth. Active cyproheptadine (PERIACTIN) 4 mg tablet Take 1 tablet (4 mg total) by mouth daily as needed. 01/10/20 25 Active amphetamine-de xtroamphetamin e XR (ADDERALL XR) 25 mg 24 hr capsule Take by mouth. 05/16/20 25 Active estradioL (ESTRACE) 0.01 % (0.1 mg/gram) vaginal cream APPLY 0.5G VAGINALLY TWICE A WEEK Active ferrous sulfate 325 (65 FE) mg EC tablet Take 65 mg by mouth every other day. Active lidocaine (LIDODERM) 5 % APPLY 1 PATCH TO AFFECTED AREA FOR 12 HOURS, THEN REMOVE FOR 12 HOURS 04/02/20 25 Active vitamin D2-vitamin K1 20-120 mcg/4 drops drops Active colestipoL (COLESTID) 1 g tabletIndicati ons:Diarrhea, unspecified type Take 1 tablet (1 g total) by mouth in the morning and 1 tablet (1 g total) before bedtime. 60 tablet 3 06/06/20 25 Active dexlansoprazol e (DEXILANT) 60 mg capsuleIndicat ions:gastroeso phageal reflux disease Take 1 capsule (60 mg total) by mouth in the morning. Indications: gastroesophageal reflux disease. 025 Discontin ued(Error ) colestipoL (COLESTID) 1 g tablet Take by mouth every 12 (twelve) hours. 025 Discontin ued(Reord er) Hospital, Clinic, or Other Facility Administered Medication [...] disc disease, cervical 05/17/2018 Allergic rhinitis 11/16/2015 Dysphagia GERD (gastroesophageal reflux disease) Resolved Problems Problem Noted Date Diagnosed Date [...] Encounters Date Type Department Care Team Description 06/11/2025 Orders Only [facility]rology, A Department of [address] [place] [phone] Ref Prov, Not In System 06/06/2025 9:00 AM EDT Office Visit [facility], Department of [address] [place] [address] Vicki Roche DO Filipiak, Charles L, MD Gastroparesis (Primary Dx); Esophageal dysphagia; Gastroesophageal reflux disease with esophagitis without hemorrhage; Diarrhea, unspecified type; Flatulence 06/04/2025 Telephone [facility], A Department of [address] [place] [phone] Joanna Piper Results 06/04/2025 Travel 05/20/2025 Telephone [facility], A Department of [address] [place] [phone] Joanna Piper sooner appointment 05/12/2025 Travel 05/07/2025 Telephone [facility], A Department [address] [place] [phone] Savanah Beyer Worsening Symptoms 04/21/2025 Refill [facility] [address] [place] [phone] Pauline Christensen MD Other migraine without status [...] Sign Reading Time Taken Comments Blood Pressure 117/70 06/06/2025 9:04 AM EDT Pulse 94 01/02/2024 3:15 PM EST Temperature 36.1 C (97 F) 01/02/2024 3:35 PM EST Respiratory Rate 16 01/02/2024 4:00 PM EST Oxygen Saturation 93% 01/02/2024 4:00 PM EST Inhaled Oxygen Concentration - - Weight 75.8 kg (167 lb) 06/06/2025 9:04 AM EDT Height 162.6 cm (5' 4 ) 06/06/2025 9:04 AM EDT Body Mass Index 28.67 06/06/2025 9:04 AM EDT Plan of Treatment Upcoming Encounters Date Type Department Care Team (Latest Contact Info) Description 06/27/2025 3:30 PM EDT Hospital Encounter [facility] - Endoscopy [address] [facility] [place] [phone] Noman Mayo MD [address] [facility], [facility] [address] [place] [address] 06/27/2025 3:30 PM EDT - 06/27/2025 4:00 PM EDT Surgery [facility] - Endoscopy [address] [place] [address], [address] [place] [phone] Noman Mayo MD [address] [facility], [facility] [address] [place] [address] ESOPHAGOGASTRODUODENOSCOPY DILATATION 07/15/2025 9:00 AM EDT Office Visit [facility], A Department of [address] [place] [phone] Justin Bhat MD [address] [place] [address] [address] [place] [address] 08/19/2025 3:30 PM EDT Office Visit [facility], A Department of [address] [place] [phone] Pauline Christensen MD [address] [place] [address] [address] [place] [phone] Scheduled Procedures Name Priority Associated Diagnoses Date/Ti me ESOPHAGOGASTRODUODENOSCOPY DILATATION esophageal dysphagia 06/27/2025 3:30 PM EDT Health Maintenance Due Date Last Done Comments Adult BMI Follow Up Plan 1990 Zoster (Shingles) Vaccine (2 of 2) 05/31/2024 04/05/2024 COVID-19 Vaccine (2023-2 5 season) 2024 11/24/2021, 05/11/2021, 04/20/2021 Depression Screening 10/23/2024 10/23/2023 Influenza Vaccine 07/07/2025 12/11/2024, , 12/21/2023, Additional history exists Adult BMI Screening 06/06/2026 06/06/2025 Tobacco Screening 06/06/2026 06/06/2025 DTaP,Tdap and Td Vaccines (2 - Td or Tdap) 06/22/2030 06/22/2020 Medical Devices Implanted Type Area [employer] Revenue [employer] Device Identifier Shelf Expiration Date Model / Serial / Lot Generator Nrstm - [id number] Implanted:Qty: 1 on 01/02/2024 by Cullen Dawkins MD at [facility] Generator Right: Neck [employer] 09/20/2026 [id number] / [id number] / Lead Ns Respiratory - [id number] Implanted:Qty: 1 on 01/02/2024 by Cullen Dawkins MD at [facility] Implant Lead Right: Neck [employer] 10/20/2026 4340 / [id number] / Lead Nrstm Inspr 3 Elect Cuf Tnl Boni Strl Lf - [id number] - [id number] Implanted:Qty: 1 on 01/02/2024 by Cullen Dawkins MD at [facility] Neuro Stimulator Right: Neck [employer] 07/19/2026 4063 / [id number] / Procedures Procedure Name Priority Date/Time Associated [...] A1C Routine 05/13/2025 6:48 AM EDT Neuropathy EMG WITH NCV Routine 04/30/2025 4:07 PM EDT from Last 3 Months Results * Protein electrophoresis, urine (05/14/2025 5:00 AM EDT) Urine Protein Electrophoresis Interp Unremarkable protein distribution, no monoclonal bands 05/16/2025 5:14 PM EDT [facility] Urine Collection / Unknown 05/14/2025 5:00 AM EDT 05/14/2025 7:04 AM EDT Pauline Christensen MD URINE ORDERABLES Final Result [facility] [address] [place] [address], [place] [phone] * Heavy Metals Scrn with Demographics (05/13/2025 6:48 AM EDT) HEAVY METAL VENOUS/CAPILLARY Venous 05/14/2025 2:29 PM EDT [facility] ARSENIC, B <1 <13 ng/mL 05/14/2025 2:29 PM EDT [facility] Comment: ADDITIONAL INFORMATION This test was developed and its performance characteristics determined by [facility] in a manner consistent with CLIA requirements. This test has not been cleared or approved by the U.S. Food and Drug Administration. CADMIUM, B <0.2 <5.0 ng/mL 05/14/2025 2:29 PM EDT [facility] Comment: ADDITIONAL INFORMATION This test was developed and its performance characteristics determined by [facility] in a manner consistent with CLIA requirements. This test has not been cleared or approved by the U.S. Food and Drug Administration. MERCURY, B <1 <10 ng/mL 05/14/2025 2:29 PM EDT [facility] Comment: ADDITIONAL INFORMATION This test was developed and its performance characteristics determined by [facility] in a manner consistent with CLIA requirements. This test has not been cleared or approved by the U.S. Food and Drug Administration. LEAD, B <1.0 <3.5 mcg/dL 05/14/2025 2:29 PM EDT [facility] Comment: ADDITIONAL INFORMATION Testing performed by Triple Quadrupole Inductively Coupled Plasma-Mass Spectrometry (ICP-MS/MS). This test was developed and its performance characteristics determined by [facility] in a manner consistent with CLIA requirements. This test has not been cleared or approved by the U.S. Food and Drug Administration. Blood Venous blood / Unknown Venipuncture / Unknown 05/13/2025 6:48 AM EDT 05/13/2025 6:48 AM EDT us Pauline Christensen MD LAB BLOOD ORDERABLES Final Resu lt [facility] [address] [place] [address], [place] * Vitamin B6 Profile (PLP and PA), P (05/13/2025 6:48 AM EDT) PYRIDOXIC ACID (PA), P 6 3 - 30 mcg/L 05/16/2025 4:16 PM EDT [facility] Comment: ADDITIONAL INFORMATION This test was developed and its performance characteristics determined by [facility] in a manner consistent with CLIA requirements. This test has not been cleared or approved by the U.S. Food and Drug Administration. Test Performed by: [facility] [address] [place] [address] Unit Aide Tech: Sindi Archibald Ph.D.; CLIA# [id number] PYRIDOXAL 5-PHOSPHATE (PLP), P 10 5 - 50 mcg/L 05/16/2025 4:16 PM EDT [facility] Comment: ADDITIONAL INFORMATION This test was developed and its performance characteristics determined by [facility] in a manner consistent with CLIA requirements. This test has not been cleared or approved by the U.S. Food and Drug Administration. Blood Venous blood / Unknown Venipuncture / Unknown 05/13/2025 6:48 AM EDT 05/13/2025 6:48 AM EDT us Pauline Christensen MD LAB BLOOD ORDERABLES Final Resu lt [facility] [address] [place] [address], * Thiamin (Vitamin B1), WB (05/13/2025 6:48 AM EDT) THIAMIN (VITAMIN B1), WB 114 70 - 180 nmol/L 05/15/2025 12:50 PM EDT [facility] Comment: ADDITIONAL INFORMATION This test was developed and its performance characteristics determined by [facility] in a manner consistent with CLIA requirements. This test has not been cleared or approved by the U.S. Food and Drug Administration. Test Performed by: [facility] [place] [address] Unit Aide Tech: Sindi Archibald Ph.D.; CLIA# [id number] Blood Venous blood / Unknown Venipuncture / Unknown 05/13/2025 6:48 AM EDT 05/13/2025 6:48 AM EDT Pauline Christensen MD LAB BLOOD ORDERABLES Final Resu lt Performing Organization Address City/[facility] Co de Phone Number [facility] [address] [place] [address], [place] * Copper, S (05/13/2025 6:48 AM EDT) COPPER 110 77 - 206 mcg/dL 05/14/2025 2:13 PM EDT [facility] Comment: ADDITIONAL INFORMATION This test was developed and its performance characteristics determined by [facility] in a manner consistent with CLIA requirements. This test has not been cleared or approved by the U.S. Food and Drug Administration. Test Performed by: [facility] [place] [address] Unit Aide Tech: Sinid Archibald Ph.D.; CLIA# [id number] Blood Venous blood / Unknown Venipuncture / Unknown 05/13/2025 6:48 AM EDT 05/13/2025 6:48 AM EDT us Pauline Christensen MD LAB BLOOD ORDERABLES Final Resu lt Performing Organization Address City/[facility]/ZIP Co de Phone Number [facility] [address] [place] [address], [place] * Thyroid Stimulating Hormone (TSH) (05/13/2025 6:48 AM EDT) TSH 3.16 0.49 - 4.67 uIU/mL 05/13/2025 2:03 PM EDT [facility] Blood Venous blood / Unknown Venipuncture / Unknown 05/13/2025 6:48 AM EDT 05/13/2025 6:48 AM EDT Pauline Christensen MD LAB BLOOD ORDERABLES Final Resu lt [facility] [address] [place] [address], [place] [phone] * Protein electrophoresis, serum (05/13/2025 6:48 AM EDT) TOTAL PROTEIN 6.2 6.0 - 8.0 g/dL 05/14/2025 9:57 AM EDT [facility] ALPHA 1 GLOBULIN 0.3 0.1 - 0.4 g/dL 05/14/2025 9:57 AM EDT [facility] ALPHA 2 GLOBULIN 0.6 0.4 - 1.1 g/dL 05/14/2025 9:57 AM EDT [facility] BETA GLOBULIN 0.8 0.5 - 1.2 g/dL 05/14/2025 9:57 AM EDT [facility] GAMMA GLOBULIN 0.7 0.5 - 1.6 g/dL 05/14/2025 9:57 AM EDT [facility] Protein Electrophoresis Interp Unremarkable protein distribution, no monoclonal bands 05/14/2025 9:57 AM EDT [facility] Albumin 3.9 3.4 - 5.3 g/dL 05/14/2025 9:57 AM EDT [facility] Blood Venous blood / Unknown Venipuncture / Unknown 05/13/2025 6:48 AM EDT 05/13/2025 6:48 AM EDT Pauline Christensen MD LAB BLOOD ORDERABLES Final Resu lt [facility] [address] [place] [address], [place] [phone] * Hemoglobin A1c (05/13/2025 6:48 AM EDT) [facility] HEMOGLOBIN A1C 5.2 4.4 - 5.6 % 05/13/2025 10:21 AM EDT [facility] Comment: ADA Guidelines Result HgbA1c Normal : less than 5.7 % Prediabetes : 5.7 % to 6.4 % Diabetes : > 6.4 % Use with caution in patients with abnormal hemoglobin variants as the half-life of red blood cells and in vivo glycation rates are affected. EST. AVERAGE GLUCOSE 103 mg/dL 05/13/2025 10:21 AM EDT [facility] Blood Venous blood / Unknown Venipuncture / Unknown 05/13/2025 6:48 AM EDT 05/13/2025 6:48 AM EDT us Pauline Christensen MD LAB BLOOD ORDERABLES Final Resu lt [facility] [address] [place] [address], * Folate Serum (05/13/2025 6:48 AM EDT) [facility] FOLIC ACID >25.0 >5.8 ng/mL 05/13/2025 2:14 PM EDT [facility] Blood Venous blood / Unknown Venipuncture / Unknown 05/13/2025 6:48 AM EDT 05/13/2025 6:48 AM EDT us Pauline Christensen MD LAB BLOOD ORDERABLES Final Resu lt [facility] [address] [place] [address], * Vitamin B12 (05/13/2025 6:48 AM EDT) VITAMIN B12 214 180 - 914 pg/mL 05/13/2025 2:15 PM EDT [facility] Blood Venous blood / Unknown Venipuncture / Unknown 05/13/2025 6:48 AM EDT 05/13/2025 6:48 AM EDT us Pauline Christensen MD LAB BLOOD ORDERABLES Final Resu lt [facility] [address] [place] [address], [place] [phone] * EMG With NCV (04/30/2025 4:07 PM EDT) us Not In System Ref Prov NEUROLOGY ORDERABLES Emilie l Result MANUALLY TRANSCRIBED RESULTS from Last 3 Months Insurance [place]ICAID [place] [employer] MEDICARE Care Teams Smocker Relationship Specialty Start Date End Date Eliceo Gómez Jr., [address] [place] [address], [id number] [place] [address] PCP - General Family Medicine 12/11/19 Jenna Butler [address] Consulting Physician Behavioral Health 12/20/23
--- OUTSIDE RECORDS SUMMARY | 2025-06-25 07:02 | XMS_ITS | Encounter Summary ---
Author Organization [facility] Address [address] [place] [address] Care Team Providers Care Button Buttonhole Marker Name Role Phone Eliceo Gómez DO Primary Care Provider [phone] Eliceo Gómez DO Unavailable [phone] Beata Hernandez Unavailable Juan Damico DO Unavailable [phone] Encounter Details Date Type Department Care Team [...] often do you attend chur ch or yazidism services? Never 04/14/2023 Do you [...] Patient Health Questionnaire-2 Score 0 10/03/2023 [facility] - Occupational Stress Questionnaire Answer Date [...] [address] [place] [address] Chantale Sweet PA [address] [place] [address] 11/20/2025 8:30 AM EST Office Visit [facility] [address] [place] [address] Nelsy Harris, STATISTICAL ANALYST-OSTEOPATHY DOCTOR [address] [place] [address] documented as of this encounter Procedures Procedure Name Priority Date/Time Associated Diagnosis Comments XR FOOT RT MIN 3V 10/25/2023 1:2 9 PM EST documented in this encounter Results * XR FOOT RT MIN 3V (10/25/2023 1:29 PM EST) Anatomical Region Laterality Modality Other 10/25/2023 1:29 PM EST Narrative 10/25/2023 1:31 [place] [address] XRay Report Signed Patient: MARY FUENTES MR#: [id number] : 1970 Acct:[id number] Age/Sex: 53 / F ADM Date: 10/25/23 Loc: [facility] Attending Dr: Sade Felix D.P.M. Ordering Physician: Sade Felix D.P.M. Date of Service: 10/25/23 Procedure(s): XR foot RT min 3V Accession Number(s): [id number] cc: Sade Felix D.P.M.; Isatu GÓMEZ [place] [address] Patient Name: MARY FUENTES MRN: [id number] date: 1970 Sex: F Assigned Patient Location: [facility] Current Patient Location: [facility] Accession/Order Number: [id number] Exam Date: 10/25/2023 09:09 Report Date: 10/25/2023 13:29 At the request of: SADE FELIX Procedure: XR foot RT min 3V PROCEDURE: XR foot RT min 3V DATE: 10/25/2023 8:09 AM ORDER PICKER/ASSEMBLER COMPARISONS: 09/13/2023 CLINICAL INDICATION: RIGHT FOOT F/U [...] By: Deisy Grajeda M.D. Signed By: 10/25/23 1331 DD/ 1329 TD/TT: Stock Checkerer: Procedure Note Radiology, Radiologist, - 01/10/2024 [place] [address] XRay Report Signed Patient: MARY FUENTES DMR#: [id number] : 1970Acct:[id number] Age/Sex: 53 / FADM Date: 10/25/23 Loc: RAD Attending Dr: Sade Felix D.P.M. Ordering Physician: Sade Felix D.P.M. Date of Service: 10/25/23 Procedure(s): XR foot RT min 3V Accession Number(s): [id number] cc: Sade Fleix D.P.M.; Isatu GÓMEZ [place] [id number] Patient Name: MARY FUENTES MRN: [id number] date: 1970 Sex: F Assigned Patient Location: [facility] Current Patient Location: [facility] Accession/Order Number: [id number] Exam Date: 10/25/2023 09:09 Report Date: 10/25/2023 13:29 At the request of: SADE FELIX Procedure: XR foot RT min 3V PROCEDURE: XR foot RT min 3V DATE: 10/25/2023 8:09 AM ORDER PICKER/ASSEMBLER COMPARISONS: 09/13/2023 CLINICAL INDICATION: RIGHT FOOT F/U [...] M.D. Signed By:10/25/23 1331 DD/ 1329 TD/TT: Stock Checkerer: us Generic External Data Provider [facility] Final Result documented in this encounter Visit Diagnoses Not on filedocumented in this encounter Care Teams Button Buttonhole Marker Relationship Specialty Start Date End Date Eliceo Gómez DO [address] [place] [address] PCP - General Family Medicine 04/04/23 Eliceo Gómez DO [address] [place] [address] PCP - [facility] 05/06/23 Beata Hernandez PA [address] [place] [address] Dietitian Nutrition 08/08/23 05/16/24 Juan Damico DO [address] [place] [address] Referring Physician Obstetrics and Gynecology 05/20/24 documented as of this encounter
--- OUTSIDE RECORDS SUMMARY | 2025-06-25 07:02 | XMS_ITS | Encounter Summary ---
Author Organization [employer] Address [facility]-[id number] [address] [place] [address] Care Team Providers Care Lymphedema Therapist Name Role Phone Dalia Morales DO, George R Primary Care Provider + Reason for Visit * Reason Comments Med Refill Encounter Details Date Type Department Care Team (Late st Contact Info) Description 10/19/2020 Refill [facility] [address] [place] [phone] Pauline Christensen MD [address] [place] [address], [facility] [address] [place] [address] Chronic mixed headache syndrome Social [...] 10/19/2020 4:15 PM EST RN sent a Only [employer] message to patient (a modality with which she frequently communicates with this office) to inquire if the indomethacin is still helping. RN will update the refill request when response received. Jessi Franklin RN 10/20/20 3078 * Telephone Encounter - Jessi Franklin RN - 10/19/2020 4:15 PM EST Patient responded to [employer] message as below: It helps some days. But not all the time. Is it time for a change maybe? Please advise, and thank you. Jessi Franklin RN 10/20/20 0956 * Telephone Encounter - Pauline Christensen MD - 10/19/2020 4:15 PM EST If she is up to 175mg/day, that's already a patrica dose. Not much scope to increase. Thanks * Telephone Encounter - Jessi Franklin RN - 10/19/2020 4:15 PM EST Ok. Anything else to advise for pt MOTNIEL besides sleep, water, rest, etc? Jessi Franklin [...] Linda in mid- September. RN asked in [employer] message if she is still taking Dayvigo. [...] EST Received call today 10/21/20 9:30 from [facility] who states that both the scriptsfor patient's Indomethacin do not equal to 175 mg as is stated in the parentheses for dose instructions. They said they would need a new script for this. Their callback# if needed: [phone]. * Telephone Encounter - Jessi Franklin RN - 10/19/2020 4:15 PM EST Script with indomethacin 75 mg BID called in 08/07/2020 (superseding script called in 08/03/2020) wasdiscontinued by CECILIA Reyes for reason of duplicate listing . Unfortunately, other script for indomethacin 75 mg is once daily, not BID as patient is taking it. RN called [facility] at number below. RN spoke with pharmacist [...] Description 06/27/2025 3:30 PM EDT [facility] [address] [facility] [place] [address] Noman Mayo MD [address] [facility] [place] [address] 06/27/2025 3:30 PM EDT - 06/27/2025 4:00 PM EDT Surgery [facility] - Endoscopy [address] [facility] [place] [address] Noman Mayo MD [address] [facility], [address] [place] [address] ESOPHAGOGASTRODUODENOSCOPY DILATATION 07/15/2025 9:00 AM EDT Office Visit [facility] Neurology, A Department of [address], [address] [place] [address] Justin Bhat MD [address] [place] [address] [address], [address] [place] [address] 08/19/2025 3:30 PM EDT Office Visit [facility] Neurology, A Department of [address], [address] [place] [address] Pauline Christensen MD [address] [place] [address] 101, [address], [address] [place] [address] Scheduled Procedures Name Priority Associated Diagnoses Date/Ti me ESOPHAGOGASTRODUODENOSCOPY DILATATION esophageal dysphagia 06/27/2025 3:30 PM EDT documented as of this encounter Visit Diagnoses Diagnosis Chronic mixed headache syndrome Other headache syndromes documented in this encounter Care Teams Lymphedema Therapist Relationship Specialty Start Date End Date Eliceo Gómez Jr., [address] [facility], [address] [place] [address] PCP - General Family Medicine 12/11/19 Jenna Butler [address] Consulting Physician Behavioral Health 12/20/23 documented as of this encounter
--- OUTSIDE RECORDS SUMMARY | 2025-06-25 07:02 | XMS_ITS | Encounter Summary ---
Author Organization [facility] Address [address] [facility] [place] [address] Care Team Providers Care Checker Dump Grounds Name Role Phone Eliceo Gómez DO Primary Care Provider [phone] Eliceo Gómez DO Unavailable [phone] Juan Damico DO Unavailable [phone] Encounter Details Date Type Department Care Team (Late st Contact Info) Description 01/30/2025 Abstract [facility] [place] [facility] [address] [facility] [address] [place] [address] Eliceo Gómez DO [address] [facility] [address] [place] [address] Social History Tobacco Use Types [...] often do you attend chur ch or restoration services? Never 05/01/2024 Do you [...] Recorded Patient Health Questionnaire-2 Score 0 01/20/2025 [facility] of Occupat ional Health - Occupational Stress [...] Dermatology [address] [place] [address] Chantale Sweet PA [address] [place] [address] 11/20/2025 8:30 AM EST Office Visit [facility] [address] [place] [address] Nelsy Harris, CABIN CLEANING SUPERVISOR-CAPTAIN AIRLINE PILOT [address] [place] [address] documented as of this encounter Visit Diagnoses Not on filedocumented in this encounter Additional Health Concerns Assessment Noted Time PHQ-9 Depression Total Score: 0 01/21/20 25 1:00 PM EDT documented as of this encounter Care Teams Checker Dump Grounds Relationship Specialty Start Date End Date Eliceo Gómez DO [address] [place] [address] PCP - General Family Medicine 04/04/23 Eliceo Gómez DO [address] [place] [address] PCP - [facility] 05/06/23 Juan Damico DO [address] [place] [address] Referring Physician Obstetrics and Gynecology 05/20/24 documented as of this encounter
--- OUTSIDE RECORDS SUMMARY | 2025-06-25 07:02 | XMS_ITS | Encounter Summary ---
Author Organization [facility] Address [address] [place] [address] Care Team Providers Care Sausage Stuffer Name Role Phone Eliceo Gómez DO Primary Care Provider Eliceo Gómez DO Unavailable [phone] Beata Hernandez Unavailable Juan Damico DO Unavailable [phone] Encounter Details Date Type Department Care Team (Late st Contact Info) Description 10/25/2023 Orders Only [facility] [place] [facility] [address] [email or web address] [place] [address] Jacob Felix MD [address] [place] [address] [place] [address] Social History Tobacco Use Types Packs/Day Years [...] How often do you attend chur or mormonism services? Never 04/14/2023 Do you belong to [...] Recorded Patient Health Questionnaire-2 Score 0 10/03/2023 [facility] of Occupat ional Health - Occupational [...] Dermatology [address] [place] [address] Chantale Sweet PA [address] [place] [address] 11/20/2025 8:30 AM EST Office Visit [facility] [address] [place] [address] PradeepNelsy randall Thomas, POT RELINER-SKIDDER [address] [place] [address] documented as of this encounter Procedures Procedure [...] on filedocumented in this encounter Care Teams Sausage Stuffer Relationship Specialty Start Date End Date Eliceo Gómez DO [address] [place] [address] PCP - General Family Medicine 04/04/23 Eliceo Gómez DO [address] [place] [address] PCP - [facility] 05/06/23 Beata Hernandez PA [address] [place] [address] Dietitian Nutrition 08/08/23 05/16/24 Juan Damico DO [address] [place] [address] Referring Physician Obstetrics and Gynecology 05/20/24 documented as of this encounter
--- OUTSIDE RECORDS SUMMARY | 2025-06-25 07:02 | XMS_ITS | Encounter Summary ---
Author Organization [facility] Address [address] [place] [address] Care Team Providers Care Well Logger Name Role Phone Eliceo Gómez DO Primary Care Provider [phone] Eliceo Gómez DO Unavailable [phone] Juan Damico DO Unavailable [phone] Encounter Details Date Type Department Care Team [...] Recorded Patient Health Questionnaire-2 Score 0 07/11/2024 [facility] of Occupat ional Health - Occupational [...] any time in the past 12 m [facility], were you homeless or living in [...] Dermatology [address] [place] [address] Chantale Sweet PA [address] [place] [address] 11/20/2025 8:30 AM EST Office Visit [facility] [address] [place] [address] PradeepNelsy randall, SURFACE MOUNT TECHNOLOGY OPERATOR-ROCK DRILL OPERATOR [address] [place] [address] documented as of this encounter Procedures Procedure Name Priority Date/Time Associated Diagnosis Comments XR THORACIC SPINE 2 VIEWS 07/13/2024 8:07 AM EDT documented in this encounter Results * XR thoracic spine 2 views (07/13/2024 8:07 AM EDT) Anatomical Region Laterality Modality Spine, T-spine Radiographic Ira ging 07/13/2024 8:07 AM EDT Narrative 07/13/2024 8:09 AM EDT [address] [address] XRay Report Signed Patient: MARY FUENTES MR#: [id number] : 1970 Acct:[id number] Age/Sex: 54 / F ADM Date: 07/12/24 Loc: RAD Attending Dr: Jess Black NP Ordering Physician: Jess Black NP Date of Service: 07/12/24 Procedure(s): XR thoracic spine 2V Accession Number(s): [id number] cc: Jess Black NP; Isatu GÓMEZ [address] [address] Patient Name: MARY FUENTES MRN: [id number] date: 1970 Sex: F Assigned Patient Location: [facility] Current Patient Location: Accession/Order Number: [id number] Exam Date: 07/12/2024 10:50 Report Date: 07/13/2024 [...] M.D. Signed By: 07/13/24808 DD/ 6 TD/TT: Water Treatment Plant Operator: Procedure Note Radiology, Radiologist, MD - 07/13/2024 [place] [address] XRay Report Signed Patient: MARY UFENTES DMR#: [id number] : 1970Acct:[id number] Age/Sex: 54 / FADM Date: 07/12/24 Loc: [facility] Attending Dr: Jess Black NP Ordering Physician: Jess Black NP Date of Service: 07/12/24 Procedure(s): XR thoracic spine 2V Accession Number(s): [id number] cc: Jess Black NP; Isatu GÓMEZ [place] [address] Patient Name: MARY FUENTES MRN: [facility]:[id number] date: 1970 Sex: F Assigned Patient Location: [facility] Current Patient Location: Accession/Order Number: [id number] Exam Date: 07/12/2024 10:50 Report Date: 07/13/2024 [...] Oliveros M.D. Signed By:07/13/24808 DD/ 6 TD/TT: Water Treatment Plant Operator: Generic External Data Provider IMG XR PROCEDURES Final Result documented in this encounter Visit Diagnoses Not on filedocumented in this encounter Care Teams Well Logger Relationship Specialty Start Date End Date Eliceo Gómez DO [address] [place] [address] PCP - General Family Medicine 04/04/23 Eliceo Gómez DO [address] [place] [address] PCP - [facility] 05/06/23 Juan Damico DO [address] [place] [address] Referring Physician Obstetrics and Gynecology 05/20/24 documented as of this encounter
--- OUTSIDE RECORDS SUMMARY | 2025-06-25 07:02 | XMS_ITS | Encounter Summary ---
Author Organization [facility] [facility] [employer] Address [facility]-[id number] [address] [place] [address] Care Team Providers Care Sports Writer Name Role Phone Dalia Morales DO, George R Primary Care Provider + Reason for Visit * Reason Onset Date Comments Med Refill 10/29/2020 Encounter Details Date Type Department Care Team (Late st Contact Info) Description 10/29/2020 Telephone [facility] [address] [place] [phone] Guera Benson CNA Med Refill Social History [...] Description 06/27/2025 3:30 PM EDT Hospital Encounter [facility] - Endoscopy [address] [facility] [place] [address] Noman Mayo MD [address] [facility] [address] [place] [address] 06/27/2025 3:30 PM EDT - 06/27/2025 4:00 PM EDT Surgery [facility] - Endoscopy [address] [facility] [place] [address] Noman Mayo MD [address] [facility], [facility] [address] [place] [address] ESOPHAGOGASTRODUODENOSCOPY DILATATION 07/15/2025 9:00 AM EDT Office Visit [facility] Neurology, A Department of [address], [address], [address] [place] [address] Justin Bhat MD [address] [place] [address] 101, [address], [address] [place] [address] 08/19/2025 3:30 PM EDT Office Visit [facility] Neurology, A Department of [address], [address] [place] [address] Pauline Christensen MD [address] [place] [address] 101, [address], [address] [place] [address] Scheduled Procedures Name Priority Associated Diagnoses Date/Ti me ESOPHAGOGASTRODUODENOSCOPY DILATATION esophageal dysphagia 06/27/2025 3:30 PM EDT documented as of this encounter Visit Diagnoses Not on filedocumented in this encounter Care Teams Sports Writer Relationship Specialty Start Date End Date Eliceo Gómez Jr., [address] [place] [address], [address] [address] PCP - General Family Medicine 12/11/19 Jenna Butler [address] Consulting Physician Behavioral Health 12/20/23 documented as of this encounter
--- OUTSIDE RECORDS SUMMARY | 2025-06-25 07:02 | XMS_ITS | Encounter Summary ---
Author Organization [facility] Address [address] [facility] [place] [address] Care Team Providers Care Handicapper Harness Racing Name Role Phone Eliceo Gómez DO Primary Care Provider [phone] Eliceo Gómez DO Unavailable [phone] Juan Damico DO Unavailable [phone] Encounter Details Date Type Department Care Team (Late st Contact Info) Description 07/22/2024 Abstract [facility] [place] [facility] [address] [facility] [address] [place] [address] Eliceo Gómez DO [address] [facility] [address] [place], [place] [phone] Social History Tobacco Use Types Packs/Day Years [...] often do you attend chur ch or caodaism services? Never 05/01/2024 Do you [...] Recorded Patient Health Questionnaire-2 Score 0 07/11/2024 [facility] of Occupat ional Health - Occupational Stress [...] Dermatology [address] [place] [address] Chantale Sweet PA [address] [place] [address] 11/20/2025 8:30 AM EST Office Visit [facility] [address] [place] [address] Nelsy Harris, SLOT MACHINE MECHANIC-SHOP WELDER [address] [place] [address] documented as of this encounter Visit Diagnoses Not on filedocumented in this encounter Care Teams Handicapper Harness Racing Relationship Specialty Start Date End Date Eliceo Gómez DO [address] [place] [address] PCP - General Family Medicine 04/04/23 Eliceo Gómez DO [address] [place] [address] PCP - [facility] 05/06/23 Juan Damico DO [address] [place] [address] Referring Physician Obstetrics and Gynecology 05/20/24 documented as of this encounter
--- OUTSIDE RECORDS SUMMARY | 2025-06-25 07:02 | XMS_ITS | Encounter Summary ---
Author Organization [facility] [employer] Address [facility] [place]-[id number] [address] [place] [address] Care Team Providers Care Toilet Attendant Name Role Phone Dalia Morales DO, George R Primary Care Provider + Encounter Details Date Type Department Care Team (Late st Contact Info) Description 06/11/2025 Orders Only [facility], A Department of [facility] [address] [facility] [address] [place] [address] Ref Prov, [place] [address] Social History Tobacco Use Types Packs/Day Years [...] Description 06/27/2025 3:30 PM EDT Hospital Encounter [facility] - Endoscopy [address] [place] [address], [address] [place] [address] Noman Mayo MD [address] [facility], [facility] 103 [place] [address] 06/27/2025 3:30 PM EDT - 06/27/2025 4:00 PM EDT Surgery [facility] - Endoscopy [address] [place] [address], [address] [place] [address] Noman Mayo MD [address] [facility] [address] [place] [address] ESOPHAGOGASTRODUODENOSCOPY DILATATION 07/15/2025 9:00 AM EDT Office Visit [facility] Neurology, A Department of [address], [address] [place] [address] Justin Bhat MD [address] [place] [address] [address], [address] [place] [address] 08/19/2025 3:30 PM EDT [facility], [facility] Department of [address], [address] [place] [address] Pauline Christensen MD [address] [place] [address] 101, [address] [place] [address] Scheduled Procedures Name Priority Associated Diagnoses Date/Ti me ESOPHAGOGASTRODUODENOSCOPY DILATATION esophageal dysphagia 06/27/2025 3:30 PM EDT documented as of this encounter Procedures Procedure Name Priority Date/Time Associated Diagnosis Comments EMG WITH NCV Routine 04/30/2025 4:07 PM EDT documented in this encounter Results * EMG With NCV (04/30/2025 4:07 PM EDT) us Not In System Ref Prov NEUROLOGY ORDERABLES Emilie l Result MANUALLY TRANSCRIBED RESULTS documented in this encounter Visit Diagnoses Not on filedocumented in this encounter Additional Health Concerns Assessment Noted Time PHQ-9 Depression Total Score: 0 10/23/20 23 1:26 PM EST documented as of this encounter Care Teams Toilet Attendant Relationship Specialty Start Date End Date Eliceo Gómez Jr., DO [address] [place] [address], [address] [place] [address] PCP - General Family Medicine 12/11/19 Jenna Butler [address] Consulting Physician Behavioral Health 12/20/23 documented as of this encounter
--- OUTSIDE RECORDS SUMMARY | 2025-06-25 07:02 | XMS_ITS | Encounter Summary ---
Author Organization [facility] Address [address] [place] [address] Care Team Providers Care Child Care Teacher Name Role Phone Eliceo Gómez DO Primary Care Provider [phone] Eliceo Gómez DO Unavailable [phone] Beata Hernandez Unavailable Juan Damico DO Unavailable [phone] Encounter Details Date Type Department Care Team [...] often do you attend chur ch or episcopalian services? Never 04/14/2023 Do you [...] Recorded Patient Health Questionnaire-2 Score 0 10/03/2023 [facility] - Occupational Stress Questionnaire Answer Date [...] Dermatology [address] [place] [address] Chantale Sweet PA [address] [place] [address] 11/20/2025 8:30 AM EST Office Visit [facility] [address] [place] [address] Nelsy Harris APRN-CORPORATE LEGAL MANAGER [address] [place] [address] documented as of this encounter Procedures Procedure Name Priority Date/Time Associated Diagnosis Comments XR FOOT RT MIN 3V 11/13/2023 12: 52 PM EST documented in this encounter Results * XR FOOT RT MIN 3V (11/13/2023 12:52 PM EST) Anatomical Region Laterality Modality Other 11/13/2023 12:5 2 PM EST Narrative 11/13/2023 12:54 PM EST [address] [address] XRay Report Signed Patient: MARY FUENTES MR#: [id number] : 1970 Acct:[id number] Age/Sex: 53 / F ADM Date: 11/13/23 Loc: SURGOUT Attending Dr: Jacob Felix D.P.M. Ordering Physician: Ritchie Gonzalez D.P.M. Date of Service: 11/13/23 Procedure(s): XR foot RT min 3V Accession Number(s): [id number] cc: Isatu GÓMEZ ; Ritchie Gonzalez D.P.M. [address] [address] Patient Name: MARY FUENTES MRN: [id number] date: 1970 Sex: F Assigned Patient [facility]: [facility] Current Patient Location: Accession/Order Number: [id number] Exam Date: 11/13/2023 11:30 Report Date: 11/13/2023 [...] Dacosta M.D. Signed By: 11/13/23 1254 DD/ 125 TD/TT: Foiling Machine Operator: Procedure Note Radiology, Radiologist, - 01/10/[address] [address] XRay Report Signed Patient: MARY FUENTES DMR#: [id number] : 1970Acct:[id number] Age/Sex: 53 / FADM Date: 11/13/23 Loc: SURGOUT Attending Dr: Jacob Felix D.P.M. Ordering Physician: Ricthie Gonazlez D.P.M. Date of Service: 11/13/23 Procedure(s): XR foot RT min 3V Accession Number(s): [id number] cc: Isatu GÓMEZ ; Ritchie Gonzalez D.P.M. [address] [address] Patient Name: MARY FUENTES MRN: [facility]:[id number] date: 1970 Sex: F Assigned Patient Location: [facility] Current Patient Location: Accession/Order Number: [id number] Exam Date: 11/13/2023 11:30 Report Date: 11/13/2023 [...] Nicki Dacosta M.D. Signed By:11/13/23 1254 DD/ 51 TD/TT: Foiling Machine Operator: us Generic External Data Provider [facility] Final Result documented in this encounter Visit Diagnoses Not on filedocumented in this encounter Care Teams Child Care Teacher Relationship Specialty Start Date End Date Eliceo Gómez DO [address] [place] [address] PCP - General Family Medicine 04/04/23 Eliceo Gómez DO [address] [place] [address] PCP - [facility] 05/06/23 Beata Hernandez PA [address] [place] [address] Dietitian Nutrition 08/08/23 05/16/24 Juan Damico DO [address] [place] [address] Referring Physician Obstetrics and Gynecology 05/20/24 documented as of this encounter
--- OUTSIDE RECORDS SUMMARY | 2025-06-25 07:02 | XMS_ITS | Encounter Summary ---
Author Organization [facility] Address [address] [facility] [place] [address] Care Team Providers Care Knee Bolter Name Role Phone Eliceo Gómez DO Primary Care Provider [phone] Eliceo Gómez DO Unavailable [phone] Juan Damico DO Unavailable Encounter Details Date Type Department Care Team (Late st Contact Info) Description 09/16/2024 Abstract [facility] [place] [facility] 230 [address] [facility] [address] [place] [address] Eliceo Gómez DO [address] [facility] [address] [place], [place] [phone] Social History Tobacco Use Types Packs/Day Years [...] Recorded Patient Health Questionnaire-2 Score 0 07/11/2024 [facility] of Occupat ional Health - Occupational Stress [...] any time in the past 12 m [facility], were you homeless or living in a [...] Dermatology [address] [place] [address] Chantale Sweet PA [address] [place] [address] 11/20/2025 8:30 AM EST Office Visit [facility] [address] [place] [address] Nelsy Harris, MANAGER QUANTITATIVE-CAFE ASSOCIATE [address] [place] [address] documented as of this encounter Visit Diagnoses Not on filedocumented in this encounter Care Teams Knee Bolter Relationship Specialty Start Date End Date Eliceo Gómez DO [address] [place] [address] PCP - General Family Medicine 04/04/23 Eliceo Gómez DO [address] [place] [address] PCP - [facility] 05/06/23 Juan Damico DO [address] [place] [address] Referring Physician Obstetrics and Gynecology 05/20/24 documented as of this encounter
--- OUTSIDE RECORDS SUMMARY | 2025-06-25 07:03 | XMS_ITS | Encounter Summary ---
Author Organization [facility] Address [address] [place] [address] Care Team Providers Care Collar Band Creaser Name Role Phone Eliceo Gómez DO Primary Care Provider [phone] Eliceo Gómez DO Unavailable [phone] Beata Hernandez Unavailable Juan Damico DO Unavailable [phone] Encounter Details Date Type Department Care Team (Late st Contact Info) Description 05/18/2023 Orders Only [facility] [place] [facility] [address] [place] [address] Provider, MD Pilo [address] [place] [address] Social History Tobacco Use Types Packs/Day [...] often do you attend chur ch or shinto services? Never 04/14/2023 Do you [...] 0 04/06/2023 [facility] of Occupat ional [facility] - Occupational Stress Questionnaire Answer Date [...] [address] [place] [address] Chantale Sweet PA [address] [place] [address] 11/20/2025 8:30 AM EST Office Visit [facility] [address] [place] [address] Nelsy Harris, DANN-PLATE CORRECTOR [address] [place] [address] documented as of this encounter Procedures Procedure Name Priority Date/Time Associated Diagnosis Comments XR CHEST 1 VIEW Routine 05/18/2023 9:[address] FOOT RIGHT W CONTRAST [id number] Routine 05/18/2023 9:07 AM EDT XR FOOT 3+ VIEWS RIGHT Routine 05/18/2023 8:25 AM EDT documented in this encounter Results * XR chest 1 view (05/18/2023 9:19 AM EDT) Anatomical Region Laterality Modality Chest Radiographic Ira ging us Historical Provider IMG XR PROCEDURES Final R esult * CT FOOT RIGHT W CONTRAST [id number] (05/18/2023 9:07 AM EDT) Anatomical Region Laterality Modality Radiographic Ira ging Historical Provider IMG XR PROCEDURES Final R esult * XR foot 3+ views right (05/18/2023 8:25 AM EDT) Anatomical Region Laterality Modality Lower Extremities, Foot Right Radiogra phic Imaging Historical Provider IMG XR PROCEDURES Final R esult documented in this encounter Visit Diagnoses Not on filedocumented in this encounter Care Teams Collar Band Creaser Relationship Specialty Start Date End Date Eliceo Gómez DO [address] [place] [address] PCP - General Family Medicine 04/04/23 Eliceo Gómez DO [address] [place] [address] PCP - [facility] 05/06/23 Beata Hernandez PA [address] [place] [address] Dietitian Nutrition 08/08/23 05/16/24 Juan Damico DO [address] [place] [address] Referring Physician Obstetrics and Gynecology 05/20/24 documented as of this encounter
--- OUTSIDE RECORDS SUMMARY | 2025-06-25 07:03 | XMS_ITS | Encounter Summary ---
Author Organization [facility] Address [address] [place] [address] Care Team Providers Care Data Analytics Chief Scientist Name Role Phone Eliceo Gómez DO Primary Care Provider [phone] Eliceo Gómez DO Unavailable [phone] Beata Hernandez Unavailable Juan Damico DO Unavailable [phone] Encounter Details Date Type Department Care Team (Late st Contact Info) Description 09/13/2023 Orders Only [facility] [place] [facility] [address] [place] [address] A, Unknown Practice [address] [place] [address] Social History Tobacco Use Types Packs/Day Years [...] Recorded Patient Health Questionnaire-2 Score 0 07/06/2023 [facility] of Occupat ional Health - [...] [address] [place] [address] Chantale Sweet PA [address] [place] [address] 11/20/2025 8:30 AM EST Office Visit [facility] [address] [place] [address] Nelsy Harris, CLINICAL RADIOLOGIST-PUBLIC SERVICE DIRECTOR [address] [place] [address] documented as of this encounter Procedures Procedure [...] filedocumented in this encounter Care Teams Data Analytics Chief Scientist Relationship Specialty Start Date End Date Eliceo Gómez DO [address] [place] [address] PCP - General Family Medicine 04/04/23 Eliceo Gómez DO [address] [place] [address] PCP - [facility] 05/06/23 Beata Hernandez PA [address] [place] [address] Dietitian Nutrition 08/08/23 05/16/24 Juan Damico DO [address] [place] [address] Referring Physician Obstetrics and Gynecology 05/20/24 documented as of this encounter
--- OUTSIDE RECORDS SUMMARY | 2025-06-25 07:03 | XMS_ITS | Encounter Summary ---
Author Organization [facility] Address [address] [place] [address] Care Team Providers Care Coat Room Attendant Name Role Phone Eliceo Gómez DO Primary Care Provider [phone] Eliceo Gómez DO Unavailable [phone] Beata Hernandez Unavailable Juan Damico DO Unavailable [phone] Encounter Details Date Type Department Care Team (Late st Contact Info) Description 05/19/2023 Orders Only [facility] [place] [facility] [address] [place] [address] Provider, MD Pilo [address] [place] [address] Social History Tobacco Use Types Packs/Day [...] attend chur ch or bahai services? Never 04/14/2023 Do you belong to [...] 04/06/2023 [facility] of Occupat ional [facility] - Occupational Stress Questionnaire Answer [...] [address] [place] [address] Chantale Sweet PA [address] [place] [address] 11/20/2025 8:30 AM EST Office Visit [facility] [address] [place] [address] Nelsy Harris, DANN-UPSET OPERATOR [address] [place] [address] documented as of this encounter Procedures Procedure Name Priority Date/Time Associated Diagnosis Comments VASC US LOWER EXTREMITY VENOUS DUPLEX LEFT Routine 05/18/2023 8:26 AM EDT XR FOOT 3+ VIEWS RIGHT Routine 05/18/2023 8:24 AM EDT documented in this encounter Results * Vascular US lower extremity venous duplex left (05/18/2023 8:26 AM EDT) Anatomical Region Laterality Modality Lower Extremities Ultrasound us Historical Provider IMG US PROCEDURES Final R esult * XR FOOT 3+ VIEWS RIGHT (05/18/2023 8:24 AM EDT) Anatomical Region Laterality Modality Radiographic Ira ging us Historical Provider MD DOMINGUEZ XR PROCEDURES Final R esult documented in this encounter Visit Diagnoses Not on filedocumented in this encounter Care Teams Coat Room Attendant Relationship Specialty Start Date End Date Eliceo Gómez DO [address] [facility] 230 [place] [address] PCP - General Family Medicine 04/04/23 Eliceo Gómez DO [address] [facility] 230 [place] [address] PCP - [facility] 05/06/23 Beata Hernandez PA [address] [facility] 230 [place] [address] Dietitian Nutrition 08/08/23 05/16/24 Juan Damico DO [address] [place] [address] Referring Physician Obstetrics and Gynecology 05/20/24 documented as of this encounter
--- OUTSIDE RECORDS SUMMARY | 2025-06-25 07:03 | XMS_ITS | Encounter Summary ---
Author Organization [facility] Address [address] [facility] [place] [address] Care Team Providers Care Manager Power Name Role Phone Eliceo Gómez DO Primary Care Provider [phone] Eliceo Gómez DO Unavailable [phone] Juan Damico DO Unavailable [phone] Encounter Details Date Type Department Care Team (Late st Contact Info) Description 12/26/2024 Abstract [facility] [place] [facility] [address] [facility] [address] [place] [address] Eliceo Gómez DO [address] [facility] [address] [place] [address] Social History Tobacco Use Types [...] often do you attend chur ch or adventism services? Never 05/01/2024 Do you belong to [...] Recorded Patient Health Questionnaire-2 Score 0 07/11/2024 [facility] of Occupat ional Health - Occupational Stress [...] time in the past 12 m [facility], were you homeless or living [...] Dermatology [address] [place] [address] Chantale Sweet PA [address] [place] [address] 11/20/2025 8:30 AM EST Office Visit [facility] [address] [place] [address] Nelsy Harris, PRESTIDIGITATOR-EMPLOYMENT SPECIALIST/PROGRAM MANAGER [address] [place] [address] documented as of this encounter Visit Diagnoses Not on filedocumented in this encounter Care Teams Manager Power Relationship Specialty Start Date End Date Eliceo Gómez DO [address] [place] [address] PCP - General Family Medicine 04/04/23 Eliceo Gómez DO [address] [place] [address] PCP - [facility] 05/06/23 Juan Damico DO [address] [place] [address] Referring Physician Obstetrics and Gynecology 05/20/24 documented as of this encounter
--- OUTSIDE RECORDS SUMMARY | 2025-06-25 07:03 | XMS_ITS | Encounter Summary ---
Author Organization [facility] Address [address] [facility] [place] [address] Care Team Providers Care School Counsellor Name Role Phone Eliceo Gómez DO Primary Care Provider [phone] Eliceo Gómez DO Unavailable [phone] Beata Hernandez Unavailable Juan Damico DO Unavailable [phone] Encounter Details Date Type Department Care Team (Late st Contact Info) Description 07/11/2023 Abstract [facility] [place] [facility] [address] [facility] [address] [place] [address] Eliceo Gómez DO [address] [facility] [address] [place] [address] Social History Tobacco Use Types Packs/Day Years [...] Recorded Patient Health Questionnaire-2 Score 0 07/06/2023 [facility] of Occupat ional [...] [place] [facility] [place] ([place] No 04/14/2023 Comments No Sex [...] Dermatology [address] [place] [address] Chantale Sweet PA [address] [place] [address] 11/20/2025 8:30 AM EST Office Visit [facility] [address] [place] [address] Nelsy Harris, MID TEACHER-FOOD SAFETY DIRECTOR [address] [place] [address] documented as of this encounter Visit Diagnoses Not on filedocumented in this encounter Care Teams School Counsellor Relationship Specialty Start Date End Date Eliceo Gómez, DO [address] [place] [address] PCP - General Family Medicine 04/04/23 Eliceo Gómez, DO [address] [place] [address] PCP - [facility] 05/06/23 Beata Hernandez PA [address] [place] [address] Dietitian Nutrition 08/08/23 05/16/24 Juan Damico, [address] [place] [address] Referring Physician Obstetrics and Gynecology 05/20/24 documented as of this encounter
--- OUTSIDE RECORDS SUMMARY | 2025-06-25 07:03 | XMS_ITS | Encounter Summary ---
Author Organization [facility] Address [address] [place] [address] Care Team Providers Care Records And Tape Recordings Engineer Name Role Phone Eliceo Gómez DO Primary Care Provider Eliceo Gómez DO Unavailable [phone] Beata Hernandez Unavailable Juan Damico DO Unavailable [phone] Encounter Details Date Type Department Care Team (Late st Contact Info) Description 06/07/2023 Orders Only [facility] [place] [facility] [address] [place] [address] A, Unknown Practice [address] [place] [address] Social History Tobacco Use Types [...] you attend chur or jew services? Never 04/14/2023 Do you belong to [...] Recorded Patient Health Questionnaire-2 Score 0 06/08/2023 [facility] of Occupat ional Health - Occupational [...] [address] [place] [address] Chantale Sweet PA [address] [place] [address] 11/20/2025 8:30 AM EST Office Visit [facility] [place] [facility] [address] [place] [address] Nelsy Harris, CIGARETTE CARTON SEALER-AUCTIONEER TOBACCO [address] [place], [place] [address] documented as of this encounter Procedures Procedure [...] on filedocumented in this encounter Care Teams Records And Tape Recordings Engineer Relationship Specialty Start Date End Date Eliceo Gómez DO [address] [place] [address] PCP - General Family Medicine 04/04/23 Eliceo Gómez DO [address] [place] [address] PCP - [facility] 05/06/23 Beata Hernandez PA [address] [place] [address] Dietitian Nutrition 08/08/23 05/16/24 Juan Damico DO [address] [place] [address] Referring Physician Obstetrics and Gynecology 05/20/24 documented as of this encounter
--- OUTSIDE RECORDS SUMMARY | 2025-06-25 07:03 | XMS_ITS | Encounter Summary ---
Author Organization [facility] Address [address] [place] [address] Care Team Providers Care Body And Frame Man Name Role Phone Eliceo Gómez DO Primary Care Provider [phone] Eliceo Gómez DO Unavailable [phone] Beata Hernandez Unavailable Juan Damico DO Unavailable [phone] Encounter Details Date Type Department Care Team [...] often do you attend chur ch or judaism services? Never 04/14/2023 Do you belong to [...] Score 0 10/03/[address] [facility] - Occupational Stress Questionnaire Answer Date [...] Dermatology [address] [place] [address] Chantale Sweet PA [address] [place] [address] 11/20/2025 8:30 AM EST Office Visit [facility] [address] [place] [address] Nelsy Harris APRN-SNUFF BLENDER [address] [place] [address] documented as of this encounter Procedures Procedure Name Priority Date/Time Associated Diagnosis Comments XR FOOT RT MIN 3V 02/29/2024 6:3 7 AM EDT documented in this encounter Results * XR FOOT RT MIN 3V (02/29/2024 6:37 AM EDT) Anatomical Region Laterality Modality Other 02/29/2024 6:37 AM EDT Narrative 02/29/2024 6:40 [place] [address] XRay Report Signed Patient: MARY FUENTES MR#: [id number] : 1970 Acct:[id number] Age/Sex: 53 / F ADM Date: 02/28/24 Loc: EC Attending Dr: Sade Felix D.P.M. Ordering Physician: Sade Felix D.P.M. Date of Service: 02/28/24 Procedure(s): XR foot RT min 3V Accession Number(s): [id number] cc: Sade Felix D.P.M.; Isatu GÓMEZ [place] [address] Patient Name: MARY FUENTES MRN: [id number] date: 1970 Sex: F Assigned Patient Location: Current Patient Location: Accession/Order Number: [id number] Exam Date: 02/28/2024 09:13 Report Date: 02/29/2024 [...] Oliveros M.D. Signed By: 02/29/2440 DD/ TD/TT: City Councilman: Procedure Note Radiology, Radiologist, MD - 02/29/2024 [place] [address] XRay Report Signed Patient: MARY FUENTES DMR#: [id number] : 1970Acct:[id number] Age/Sex: 53 / FADM Date: 02/28/24 Loc: EC Attending Dr: Sade Felix D.P.M. Ordering Physician: Sade Felix D.P.M. Date of Service: 02/28/24 Procedure(s): XR foot RT min 3V Accession Number(s): [id number] cc: Sade Felix D.P.M.; Isatu GÓMEZ [place] [address] Patient Name: MARY FUENTES MRN: [id number] date: 1970 Sex: F Assigned Patient Location: Current Patient Location: Accession/Order Number: [id number] Exam Date: 02/28/2024 09:13 Report Date: 02/29/2024 [...] By: Adam Oliveros M.D. Signed By:02/29/2440 DD/ 0637 TD/TT: City Councilman: us Generic External Data Provider [facility] Final Result documented in this encounter Visit Diagnoses Not on filedocumented in this encounter Care Teams Body And Frame Man Relationship Specialty Start Date End Date Eliceo Gómez DO [address] [place] [address] PCP - General Family Medicine 04/04/23 Eliceo Gómez DO [address] [place] [address] PCP - [facility] 05/06/23 Beata Hernandez PA [address] [place] [address] Dietitian Nutrition 08/08/23 05/16/24 Juan Damico DO [address] [place] [address] Referring Physician Obstetrics and Gynecology 05/20/24 documented as of this encounter
--- OUTSIDE RECORDS SUMMARY | 2025-06-25 07:03 | XMS_ITS | Encounter Summary ---
Author Organization [facility] Address [address] [facility] [place] [address] Care Team Providers Care Burial Needs Salesperson Name Role Phone Eliceo Gómez DO Primary Care Provider [phone] Eliceo Gómez DO Unavailable [phone] Juan Damico DO Unavailable [phone] Encounter Details Date Type Department Care Team (Late st Contact Info) Description 10/24/2024 Abstract [facility] [place] [facility] [address] [facility] [address] [place] [address] Eliceo Gómez DO [address] [facility] [address] [place], [place] [address] Social History Tobacco Use Types Packs/Day Years [...] attend chur ch or mandaen services? Never 05/01/2024 Do you [...] Recorded Patient Health Questionnaire-2 Score 0 07/11/2024 [facility] of Occupat ional Health - Occupational Stress [...] Dermatology [address] [place] [address] Chantale Sweet PA [address] [place] [address] 11/20/2025 8:30 AM EST Office Visit [facility] [address] [place] [address] Nelsy Harris, INTERVENTIONAL NURSE-CISCO CERTIFIED NETWORK PROFESSIONAL [address] [place] [address] documented as of this encounter Visit Diagnoses Not on filedocumented in this encounter Care Teams Burial Needs Salesperson Relationship Specialty Start Date End Date Eliceo Gómez DO [address] [place] [address] PCP - General Family Medicine 04/04/23 Eliceo Gómez DO [address] [place] [address] PCP - [facility] 05/06/23 Juan Damico DO [address] [place] [address] Referring Physician Obstetrics and Gynecology 05/20/24 documented as of this encounter
--- OUTSIDE RECORDS SUMMARY | 2025-06-25 07:03 | XMS_ITS | Encounter Summary ---
Author Organization [facility] Address [address] [place] [address] Care Team Providers Care Bottom Stainer Name Role Phone Eliceo Gómez DO Primary Care Provider [phone] Eliceo Gómez DO Unavailable [phone] Beata Hernandez Unavailable Juan Damico DO Unavailable [phone] Encounter Details Date Type Department Care Team [...] Recorded Patient Health Questionnaire-2 Score 0 07/06/2023 [facility] - Occupational Stress Questionnaire Answer Date [...] Dermatology [address] [place] [address] Chantale Sweet PA [address] [place] [address] 11/20/2025 8:30 AM EST Office Visit [facility] [address] [place] [address] Nelsy Harris, TRIMMER SAWYER-SERVICE CLEANER [address] [place] [address] documented as of this encounter Procedures Procedure Name Priority Date/Time Associated Diagnosis Comments CT ANKLE RT WO CON 08/05/2023 8: 01 PM EDT documented in this encounter Results * CT ANKLE RT WO CON (08/05/2023 8:01 PM EDT) Anatomical Region Laterality Modality Other 08/05/2023 8:01 PM EDT Narrative 08/05/2023 8:01 [place] [address] CT Scan Report Signed Patient: MARY FUENTES MR#: [id number] : 1970 Acct:[id number] Age/Sex: 53 / F ADM Date: 08/04/23 Loc: CT Attending Dr: Niecy Serna Ordering Physician: Niecy Serna Date of Service: 08/04/23 Procedure(s): CT ankle RT wo con Accession Number(s): [id number] cc: Isatu GÓMEZ [place] [address] Patient Name: MARY FUENTES MRN: [id number] date: 1970 Sex: F Assigned Patient Location: CT Current Patient Location: Accession/Order Number: [id number] Exam Date: 08/04/2023 12:43 Report Date: 08/05/2023 20:01 At the request of: NIECY SERNA Procedure: CT ankle RT wo con EXAM: CT ankle RT wo con, [id number] 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 TECHNIQUE: Helical [...] Yang Signed By: 08/05/232003 DD/ 00 TD/TT: Sex Therapist: Procedure Note Radiology, Radiologist, MD - 08/05/2023 [place] [address] CT Scan Report Signed Patient: MARY FUENTES [facility]#: [id number] : 1970Acct:[id number] Age/Sex: 53 / FADM Date: 08/04/23 Loc: CT Attending Dr: Niecy Serna Ordering Physician: Niecy Serna Date of Service: 08/04/23 Procedure(s): CT ankle RT wo con Accession Number(s): [id number] cc: Isatu GÓMEZ [address] [address] Patient Name: MARY FUENTES MRN: [id number] date: 1970 Sex: F Assigned Patient Location: CT Current Patient Location: Accession/Order Number: [id number] Exam Date: 08/04/2023 12:43 Report Date: 08/05/2023 20:01 At the request of: NIECY SERNA Procedure: CT ankle RT wo con EXAM: CT ankle RT wo con, [id number] 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 TECHNIQUE: Helical [...] Mell Yang Signed By:08/05/232003 DD/ 00 TD/TT: Sex Therapist: us Generic External Data Provider [facility] Final Result documented in this encounter Visit Diagnoses Not on filedocumented in this encounter Care Teams Bottom Stainer Relationship Specialty Start Date End Date Eliceo Gómez DO [address] [place] [address] PCP - General Family Medicine 04/04/23 Eliceo Gómez DO [address] [place] [address] PCP - [facility] 05/06/23 Betaa Hernandez PA [address] [place] [address] Dietitian Nutrition 08/08/23 05/16/24 Juan Damico DO [address] [place] [address] Referring Physician Obstetrics and Gynecology 05/20/24 documented as of this encounter
--- OUTSIDE RECORDS SUMMARY | 2025-06-25 07:03 | XMS_ITS | Encounter Summary ---
Author Organization [facility] Address [address] [place] [address] Care Team Providers Care Cementing Bulk Material Operator Name Role Phone Eliceo Gómez DO Primary Care Provider Eliceo Gómez DO Unavailable [phone] Beata Hernandez Unavailable Juan Damico DO Unavailable [phone] Encounter Details Date Type Department Care Team (Late st Contact Info) Description 07/25/2023 Orders Only [facility] [place] [facility] [address] [place] [address] A, Unknown Practice [address] [place] [address] Social History Tobacco Use Types Packs/Day Years [...] Recorded Patient Health Questionnaire-2 Score 0 07/06/2023 [facility] of Occupat [...] [address] [place] [address] Chantale Sweet PA [address] [place] [address] 11/20/2025 8:30 AM EST Office Visit [facility] [address] [place] [address] Nelsy Harris, HOSPICE EDUCATOR-CHANCELLOR [address] [place] [address] documented as of this encounter Procedures Procedure Name Priority Date/Time Associated Diagnosis Comments ESOPHAGOSCOPY Routine 07/25/2023 3:25 PM EDT documented in this encounter Results * Esophagoscopy (07/25/2023 3:25 PM EDT) Anatomical Region Laterality Modality Endoscopy us Unknown Practice A ENDOSCOPY PROCEDURE ORDERABLE S Final Result documented in this encounter Visit Diagnoses Not on filedocumented in this encounter Care Teams Cementing Bulk Material Operator Relationship Specialty Start Date End Date Eliceo Gómez DO [address] [place] [address] PCP - General Family Medicine 04/04/23 Eliceo Gómez DO [address] [place] [address] PCP - [facility] 05/06/23 Beata Hernandez PA [address] [place] [address] Dietitian Nutrition 08/08/23 05/16/24 Juan Damico DO [address] [place] [address] Referring Physician Obstetrics and Gynecology 05/20/24 documented as of this encounter
--- OUTSIDE RECORDS SUMMARY | 2025-06-25 07:03 | XMS_ITS | Encounter Summary ---
Author Organization [facility] Address [address] [facility] [place] [address] Care Team Providers Care Substation Design Draftsperson Name Role Phone Eliceo Gómez DO Primary Care Provider Eliceo Gómez DO Unavailable [phone] Beata Hernandez Unavailable Juan Damico DO Unavailable [phone] Encounter Details Date Type Department Care Team (Late st Contact Info) Description 05/22/2023 Orders Only [facility] [place] [facility] [address] [facility] [address] [place] [address] Eliceo Gómez DO [address] [place] [address] Social History Tobacco Use Types Packs/Day Years [...] Recorded Patient Health Questionnaire-2 Score 0 04/06/2023 [facility] of Occupat ional Health - [...] [address] [place] [address] Chantale Sweet PA [address] [place] [address] 11/20/2025 8:30 AM EST Office Visit [facility] [address] [place] [address] Nelsy Harris, PILL MAKER-ANIMAL REHABILITATOR [address] [place] [address] documented as of this encounter Procedures Procedure [...] on filedocumented in this encounter Care Teams Substation Design Draftsperson Relationship Specialty Start Date End Date Eliceo Gómez DO [address] [place] [address] PCP - General Family Medicine 04/04/23 Eliceo Gómez DO [address] [place] [address] PCP - [facility] 05/06/23 Beata Hernandez PA [address] [place] [address] Dietitian Nutrition 08/08/23 05/16/24 Juan Damico DO [address] [place] [address] Referring Physician Obstetrics and Gynecology 05/20/24 documented as of this encounter
--- OUTSIDE RECORDS SUMMARY | 2025-06-25 07:03 | XMS_ITS | Encounter Summary ---
Author Organization [facility] Address [address] [place] [address] Care Team Providers Care Emd Special Education Teacher Name Role Phone Eliceo Gómez DO Primary Care Provider [phone] Eliceo Gómez DO Unavailable [phone] Beata Hernandez Unavailable Juan Damico DO Unavailable [phone] Encounter Details Date Type Department Care Team (Late st Contact Info) Description 08/03/2023 Orders Only [facility] [place] [facility] [address] [place] [address] A, Unknown Practice [address] [place] [address] Social History Tobacco Use Types [...] Recorded Patient Health Questionnaire-2 Score 0 07/06/2023 [facility] of Occupat ional Health - [...] No 04/14/2023 Housing Stability Vital Sign Answer Melecoi e Recorded In the last 12 months, [...] [address] [place] [address] Chantale Sweet PA [address] [place] [address] 11/20/2025 8:30 AM EST Office Visit [facility] [address] [place] [address] Nelsy Harris, TEACHING ASSISTANT-ZANJERO [address] [place] [address] documented as of this encounter Procedures Procedure [...] on filedocumented in this encounter Care Teams Emd Special Education Teacher Relationship Specialty Start Date End Date Eliceo Gómez DO [address] [place] [address] PCP - General Family Medicine 04/04/23 Eliceo Gómez DO [address] [place] [address] PCP - [facility] 05/06/23 Beata Hernandez PA [address] [place] [address] Dietitian Nutrition 08/08/23 05/16/24 Juan Damico DO [address] [place] [address] Referring Physician Obstetrics and Gynecology 05/20/24 documented as of this encounter
--- OUTSIDE RECORDS SUMMARY | 2025-06-25 07:03 | XMS_ITS | Encounter Summary ---
Author Organization [facility] Address [address] [place] [address] Care Team Providers Care Voip Network Technician Name Role Phone Eliceo Gómez DO Primary Care Provider Eliceo Gómez DO Unavailable [phone] Juan Damico DO Unavailable [phone] Encounter Details Date Type Department Care Team [...] you attend chur or rastafari services? Never 05/01/2024 Do you [...] Health Questionnaire-2 Score 0 07/11/2024 [facility] of Occupat ional Health [...] Dermatology [address] [place] [address] Chantale Sweet PA [address] [place] [address] 11/20/2025 8:30 AM EST Office Visit [facility] [place] [facility] [address] [place] [address] Nelsy Harris, FIRE FIGHTER AIRPORT-DERRICK BARGE OPERATOR [address] [place] [address] documented as of this encounter Procedures Procedure Name Priority Date/Time Associated Diagnosis Comments XR FOOT RT MIN 3V 10/03/2024 9:2 5 AM EST documented in this encounter Results * XR FOOT RT MIN 3V (10/03/2024 9:25 AM EST) Anatomical Region Laterality Modality Other 10/03/2024 9:25 AM EST Narrative 10/03/2024 9:28 AM EST [address] [address] XRay Report Signed Patient: MARY FUENTES MR#: [id number] : 1970 Acct:[id number] Age/Sex: 54 / F ADM Date: 10/01/24 Loc: RAD Attending Dr: Sade Felix D.P.M. Ordering Physician: Sade Felix D.P.M. Date of Service: 10/01/24 Procedure(s): XR foot RT min 3V Accession Number(s): [id number] cc: Sade Felix D.P.M.; Isatu GÓMEZ [address] [address] Patient Name: MARY FUENTES MRN: [id number] date: 1970 Sex: F Assigned Patient Location: RAD Current Patient Location: RAD Accession/Order Number: [id number] Exam Date: 10/01/2024 07:45 Report Date: 10/03/2024 [...] Signed By: 10/03/24927 DD/ 4 TD/TT: Manager Channel: Procedure Note Radiology, Radiologist, MD - 10/03/2024 [place] [address] XRay Report Signed Patient: MARY FUENTES DMR#: [id number] : 1970Acct:[id number] Age/Sex: 54 / FADM Date: 10/01/24 Loc: RAD Attending Dr: Sade Felix D.P.M. Ordering Physician: Sade Felix D.P.M. Date of Service: 10/01/24 Procedure(s): XR foot RT min 3V Accession Number(s): [id number] cc: Sade Felix D.P.M.; Isatu GÓMEZ [place] [id number] Patient Name: MARY FUENTES MRN: [id number] date: 1970 Sex: F Assigned Patient Location: [facility] Current Patient Location: [facility] Accession/Order Number: [id number] Exam Date: 10/01/2024 07:45 Report Date: 10/03/2024 [...] Oliveros M.D. Signed By:10/03/24927 DD/ 4 TD/TT: Manager Channel: us Generic External Data Provider [facility] Final Result documented in this encounter Visit Diagnoses Not on filedocumented in this encounter Care Teams Voip Network Technician Relationship Specialty Start Date End Date Eliceo Gómez DO [address] [place] [address] PCP - General Family Medicine 04/04/23 Eliceo Gómez DO [address] [place] [address] PCP - [facility] 05/06/23 Juan Damico DO [address] [place] [address] Referring Physician Obstetrics and Gynecology 05/20/24 documented as of this encounter
--- OUTSIDE RECORDS SUMMARY | 2025-06-25 07:03 | XMS_ITS | Encounter Summary ---
Author Organization [facility] Address [address] [facility] [place] [place] [address] Care Team Providers Care Quiller Runner Name Role Phone Eliceo Gómez DO Primary Care Provider [phone] Eliceo Gómez DO Unavailable [phone] Juan Damico DO Unavailable [phone] Encounter Details Date Type Department Care Team (Late st Contact Info) Description 10/14/2024 Abstract [facility] [place] [facility] [address] [facility] [address] [place] [address] Eliceo Gómez DO [address] [facility] [address] [place], [place] [id number] Social History Tobacco Use Types Packs/Day Years [...] attend chur ch or orthodoxy services? Never 05/01/2024 Do you [...] Recorded Patient Health Questionnaire-2 Score 0 07/11/2024 [facility] of Occupat ional Health - Occupational Stress [...] No 10/25/2023 Housing Stability Vital Sign Answer Meelcio e [...] Dermatology [address] [place] [address] Chantale Sweet PA [address] [place] [address] 11/20/2025 8:30 AM EST Office Visit [facility] [address] [place] [address] Nelsy Harris, PHARMACY CARE COORDINATOR-WEB DESIGN INTERN [address] [place] [address] documented as of this encounter Visit Diagnoses Not on filedocumented in this encounter Care Teams Quiller Runner Relationship Specialty Start Date End Date Eliceo Gómez DO [address] [place] [address] PCP - General Family Medicine 04/04/23 Eliceo Gómez DO [address] [place] [address] PCP - [facility] 05/06/23 Juan Damico DO [address] [place] [address] Referring Physician Obstetrics and Gynecology 05/20/24 documented as of this encounter
--- OUTSIDE RECORDS SUMMARY | 2025-06-25 07:03 | XMS_ITS | Encounter Summary ---
Author Organization [facility] Address [address] [place] [address] Care Team Providers Care Integration Technician Name Role Phone Eliceo Gómez DO Primary Care Provider Eliceo Gómez DO Unavailable [phone] Beata Hernandez Unavailable Juan Damico DO Unavailable [phone] Encounter Details Date Type Department Care Team (Late st Contact Info) Description 06/12/2023 Orders Only [facility] [place] [facility] [address] [place] [address] A, Unknown Practice [address] [place] [address] Social History Tobacco Use Types Packs/Day Years [...] [facility] ional [facility] - Occupational [...] [address] [place] [address] Chantale Sweet PA [address] [place] [address] 11/20/2025 8:30 AM EST Office Visit [facility] [address] [place] [address] Nelsy Harris, CLASSIFIED ADVERTISING SUPERVISOR-NATURAL REMEDY CONSULTANT [address] [place] [address] documented as of this encounter Procedures Procedure [...] on filedocumented in this encounter Care Teams Integration Technician Relationship Specialty Start Date End Date Eliceo Gómez DO [address] [place] [address] PCP - General Family Medicine 04/04/23 Eliceo Gómez DO [address] [place] [address] PCP - [facility] 05/06/23 Beata Hernandez PA [address] [place] [address] Dietitian Nutrition 08/08/23 05/16/24 Juan Damico DO [address] [place] [address] Referring Physician Obstetrics and Gynecology 05/20/24 documented as of this encounter
--- OUTSIDE RECORDS SUMMARY | 2025-06-25 07:03 | XMS_ITS | Encounter Summary ---
Author Organization [employer] Address [id number] [address] [place] [address] Care Team Providers Care Insurance Examining Clerk Name Role Phone Dalia Morales DO, George R Primary Care Provider + Encounter Details Date Type Department Care Team (Late st Contact Info) Description 12/26/2023 Telephone [facility] [address] [place] [address] April Mccarty Social History Tobacco [...] 12/26/2023 12:28 PM EST Patient also sent Sesamea message regarding the matter. RN sent on [...] down. Please call back and advise, callback#: [phone]. * Telephone Encounter - Pauline Christensen MD - 12/26/2023 12:28 PM EST I will have Yosef the Inspire Rep call her. Thank you documented in this encounter Plan of Treatment Upcoming Encounters Date Type Department Care Team (Latest Contact Info) Description 06/27/2025 3:30 PM EDT Hospital Encounter [facility] - Endoscopy [address] [facility], [address] [place] [address] Noman Mayo MD [address] [facility], [facility] [address] [place] [address] 06/27/2025 3:30 PM EDT - 06/27/2025 4:00 PM EDT Surgery [facility] - Endoscopy [address] [place] [address], [address] [place] [address] Noman Mayo MD [address] [facility], [address] [place] [address] ESOPHAGOGASTRODUODENOSCOPY DILATATION 07/15/2025 9:00 AM EDT Office Visit [facility] Neurology, A Department of [address] [place] [address] Justin Bhat MD [address] [place] [address] 101, [address] [place] [address] 08/19/2025 3:30 PM EDT Office Visit [facility], A Department of [address] [place] [address] Pauline Christensen MD [address] [place] [address] 101, [address], [address] [place] [address] Scheduled Procedures Name Priority Associated Diagnoses Date/Ti de ESOPHAGOGASTRODUODENOSCOPY DILATATION esophageal dysphagia 06/27/2025 3:30 PM EDT documented as of this encounter Visit Diagnoses Not on filedocumented in this encounter Additional Health Concerns Assessment Noted Time PHQ-9 Depression Total Score: 0 10/23/20 23 1:26 PM EST documented as of this encounter Care Teams Insurance Examining Clerk Relationship Specialty Start Date End Date Eliceo Gómez Jr., [address] [place] [address], [address] [address] PCP - General Family Medicine 12/11/19 Jenna Butler [address] Consulting Physician Behavioral Health 12/20/23 documented as of this encounter
--- OUTSIDE RECORDS SUMMARY | 2025-06-25 07:03 | XMS_ITS | Encounter Summary ---
Author Organization [facility] Address [address] [place] [address] Care Team Providers Care Inside Wirer Name Role Phone Eliceo Gómez DO Primary Care Provider Eliceo Gómez DO Unavailable [phone] Beata Hernandez Unavailable Juan Damico DO Unavailable [phone] Encounter Details Date Type Department Care Team (Late st Contact Info) Description 07/28/2023 Orders Only [facility] [place] [facility] [address] [place] [address] A, Unknown Practice [address] [place] [address] Social History Tobacco Use Types [...] you attend chur or lutheran services? Never 04/14/2023 Do you belong to [...] Recorded Patient Health Questionnaire-2 Score 0 07/06/2023 [facility] of Occupat ional [...] [address] [place] [address] Chantale Sweet PA [address] [place] [address] 11/20/2025 8:30 AM EST Office Visit [facility] [address] [place] [address] Nelsy Harris, SHEET METAL ROOFER-MINK SLICER [address] [place] [address] documented as of this encounter Procedures Procedure [...] on filedocumented in this encounter Care Teams Inside Wirer Relationship Specialty Start Date End Date Eliceo Gómez DO [address] [place] [address] PCP - General Family Medicine 04/04/23 Eliceo Gómez DO [address] [place] [address] PCP - [facility] 05/06/23 Beata Hernandez PA [address] [place] [address] Dietitian Nutrition 08/08/23 05/16/24 Juan Damico DO [address] [place] [address] Referring Physician Obstetrics and Gynecology 05/20/24 documented as of this encounter
--- OUTSIDE RECORDS SUMMARY | 2025-06-25 07:03 | XMS_ITS | Encounter Summary ---
Author Organization [facility] Address [address] [facility] [place] [address] Care Team Providers Care Train Master Name Role Phone Eliceo Gómez DO Primary Care Provider [phone] Eliceo Gómez DO Unavailable [phone] Juan Dmaico DO Unavailable [phone] Encounter Details Date Type Department Care Team (Late st Contact Info) Description 10/07/2024 Abstract [facility] [place] [facility] [address] [facility] [address] [place] [address] Eliceo Gómez DO [address] [facility] [address] [place], [place] [phone] Social History Tobacco Use Types Packs/Day Years [...] often do you attend chur ch or taoism services? Never 05/01/2024 Do you belong to any clubs o r organizations such as muslim groups, unions, fraternal or athletic groups, or [...] Recorded Patient Health Questionnaire-2 Score 0 07/11/2024 [facility] of Occupat ional Health - Occupational Stress [...] any time in the past 12 m [facility], were you homeless or [...] Dermatology [address] [place] [address] Chantale Sweet PA [address] [place] [address] 11/20/2025 8:30 AM EST Office Visit [facility] [address] [place] [address] Nelsy Harris, MEDICAL MANAGEMENT TRAINER-CUT PRESSMAN [address] [place] [address] documented as of this encounter Visit Diagnoses Not on filedocumented in this encounter Care Teams Train Master Relationship Specialty Start Date End Date Eliceo Gómez DO [address] [place] [address] PCP - General Family Medicine 04/04/23 Eliceo Gómez DO [address] [place] [address] PCP - [facility] 05/06/23 Juan Damico DO [address] [place] [address] Referring Physician Obstetrics and Gynecology 05/20/24 documented as of this encounter
--- OUTSIDE RECORDS SUMMARY | 2025-06-25 07:03 | XMS_ITS | Encounter Summary ---
Author Organization [facility] Address [address] [place] [address] Care Team Providers Care Cryptologist Name Role Phone Eliceo Gómez DO Primary Care Provider Eliceo Gómez DO Unavailable [phone] Beata Hernandez Unavailable Juan Damico DO Unavailable [phone] Encounter Details Date Type Department Care Team (Late st Contact Info) Description 06/28/2023 Orders Only [facility] [place] [facility] [address] [place] [address] A, Unknown Practice [address] [place] [address] Social History Tobacco Use Types [...] Recorded Patient Health Questionnaire-2 Score 0 06/08/2023 [facility] of Occupat ional Health - [...] [address] [place] [address] 11/20/2025 8:30 AM EST Office Visit [facility] [address] [place] [address] Nelsy Harris, SLIDE FORMING MACHINE OPERATOR-PLANTING MATERIAL CARRIER [address] [place] [address] documented as of this encounter Procedures Procedure [...] on filedocumented in this encounter Care Teams Cryptologist Relationship Specialty Start Date End Date Eliceo Gómez DO [address] [facility] [address] [address] [place] [address] PCP - General Family Medicine 04/04/23 Eliceo Gómez DO [address] [place] [address] PCP - [facility] 05/06/23 Beata Hernandez PA [address] [place] [address] Dietitian Nutrition 08/08/23 05/16/24 Juan Damico DO [address] [place] [address] Referring Physician Obstetrics and Gynecology 05/20/24 documented as of this encounter
--- OUTSIDE RECORDS SUMMARY | 2025-06-25 07:03 | XMS_ITS | Encounter Summary ---
Author Organization [facility] Address [address] [facility] [place] [address] Care Team Providers Care Forest Fire Fighter Name Role Phone StephonEliceo vilchis Asiya DO Primary Care Provider Eliceo Gómez DO Unavailable [phone] Beata Hernandez Unavailable Juan Damico DO Unavailable [phone] Encounter Details Date Type Department Care Team (Late st Contact Info) Description 06/20/2023 Abstract [facility] [place] [facility] [address] [facility] [address] [place] [address] Juan Damico, [address] [facility] [address] [place] [address] Social History Tobacco Use Types Packs/Day Years [...] How often do you attend chur or anabaptist services? Never 04/14/2023 Do you belong to [...] [address] [place] [address] Chantale Sweet PA [address] [place] [address] 11/20/2025 8:30 AM EST Office Visit [facility] [address] [place] [address] Nelsy Harris, CORRECTIONAL SECURITY OFFICER-BARIATRIC PHYSICIAN [address] [place] [address] documented as of this encounter Visit Diagnoses Not on filedocumented in this encounter Care Teams Forest Fire Fighter Relationship Specialty Start Date End Date Eliceo Gómez, DO [address] [place] [address] PCP - General Family Medicine 04/04/23 Eliceo Gómez, DO [address] [place] [address] PCP - [facility] 05/06/23 Beata Hernandez PA [address] [place] [address] Dietitian Nutrition 08/08/23 05/16/24 Juan Damico, DO [address] [place] [address] Referring Physician Obstetrics and Gynecology 05/20/24 documented as of this encounter
--- OUTSIDE RECORDS SUMMARY | 2025-06-25 07:03 | XMS_ITS | Encounter Summary ---
Author Organization [facility] Address [address] [facility] [place] [address] Care Team Providers Care Print Graphic Designer Name Role Phone Eliceo Gómez DO Primary Care Provider [phone] Eliceo Gómez DO Unavailable [phone] Juan Damico DO Unavailable [phone] Encounter Details Date Type Department Care Team (Late st Contact Info) Description 11/20/2024 Abstract [facility] [place] [facility] [address] [facility] [address] [place] [address] Eliceo Gómez DO [address] [facility] [address] [place], [place] [phone] Social History Tobacco Use Types Packs/Day Years [...] often do you attend chur ch or sabianism services? Never 05/01/2024 Do you [...] Recorded Patient Health Questionnaire-2 Score 0 07/11/2024 [facility] [place] of Occupat ional Health - Occupational Stress [...] Dermatology [address] [place] [address] Chantale Sweet PA [address] [place] [address] 11/20/2025 8:30 AM EST Office Visit [facility] [address] [place] [address] Nelsy Harris, BAKERY PRODUCTS CHECKER-AERIAL GUNNER [address] [place] [address] documented as of this encounter Visit Diagnoses Not on filedocumented in this encounter Care Teams Print Graphic Designer Relationship Specialty Start Date End Date Eliceo Gómez DO [address] [place] [address] PCP - General Family Medicine 04/04/23 Eliceo Gómez DO [address] [place] [address] PCP - [facility] 05/06/23 Juan Damico DO [address] [place] [address] Referring Physician Obstetrics and Gynecology 05/20/24 documented as of this encounter
--- OUTSIDE RECORDS SUMMARY | 2025-06-25 07:03 | XMS_ITS | Encounter Summary ---
Author Organization [employer] Sys tem Address [id number] [address] [place] [address] Care Team Providers Care Campus Ambassador Name Role Phone Dalia Morales DO, George R Primary Care Provider + Encounter Details Date Type Department Care Team ( Contact Info) Description 02/12/2021 Orders Only [facility] [address] [place] [address] External, Scanning Provider Social History [...] Description 06/27/2025 3:30 PM EDT Hospital Encounter [facility]oscopy [address] [facility], [address] [place] [address] Noman Mayo MD [address] [facility], [address] [place] [address] 06/27/2025 3:30 PM EDT - 06/27/2025 4:00 PM EDT Surgery [facility] Endoscopy [address] [facility], [address] [place] [address] Noman Mayo MD [address] [facility], [facility] [address] [place] [address] ESOPHAGOGASTRODUODENOSCOPY DILATATION 07/15/2025 9:00 AM EDT Office Visit [facility] Neurology, A Department of [address], [address] [place] [address] Justin Bhat MD [address] [place] [address] 101, [address], [address] [place] [address] 08/19/2025 3:30 PM EDT Office Visit [facility] Neurology, A Department of [address], [address] [place] [address] Pauline Christensen MD [address] [place] [address] 101, [address], [address] [place] [address] Scheduled Procedures Name Priority Associated Diagnoses Date/Ti me ESOPHAGOGASTRODUODENOSCOPY DILATATION esophageal dysphagia 06/27/2025 3:30 PM EDT documented as of this encounter Procedures Procedure Name Priority Date/Time Associated Diagnosis Comments MULTIPLE LABS Routine 01/21/2021 documented in this encounter Results * Multiple labs (01/21/2021) us Scanning Provider External CO IMAGING Final Result MANUALLY TRANSCRIBED RESULTS documented in this encounter Visit Diagnoses Not on filedocumented in this encounter Care Teams Campus Ambassador Relationship Specialty Start Date End Date Eliceo Gómez Jr., DO [address] [place] [address], [address] [place] [address] PCP - General Family Medicine 12/11/19 Jenna Butler [address] Consulting Physician Behavioral Health 12/20/23 documented as of this encounter
--- OUTSIDE RECORDS SUMMARY | 2025-06-25 07:03 | XMS_ITS | Encounter Summary ---
Author Organization [facility] Address [address] [facility] [place] [address] Care Team Providers Care Touring Production Manager Name Role Phone Eliceo Gómez DO Primary Care Provider [phone] Eliceo Gómez DO Unavailable [phone] Hernandez Unavailable Juan Damico DO Unavailable [phone] Encounter Details Date Type Department Care Team (Late st Contact Info) Description 06/21/2023 Abstract [facility] [place] [facility] [address] [facility] [address] [place] [address] Eliceo Gómez DO [address] [place] [address] Social History Tobacco Use Types Packs/Day Years [...] Recorded Patient Health Questionnaire-2 Score 0 06/08/2023 [facility] of Occupat ional Health [...] Dermatology [address] [place] [address] Chantale Sweet PA [address] [place] [address] 11/20/2025 8:30 AM EST Office Visit [facility] [address] [place] [address] Nelsy Harris, SENIOR COBOL DEVELOPER-MANAGER ANIMATION [address] [place] [address] documented as of this encounter Visit Diagnoses Not on filedocumented in this encounter Care Teams Touring Production Manager Relationship Specialty Start Date End Date Eliceo Gómez, DO [address] [place] [address] PCP - General Family Medicine 04/04/23 Eliceo Gómez, DO [address] [place] [address] PCP - [facility] 05/06/23 Beata Hernandez PA [address] [place] [address] Dietitian Nutrition 08/08/23 05/16/24 Juan Damico, [address] [place] [address] Referring Physician Obstetrics and Gynecology 05/20/24 documented as of this encounter
--- OUTSIDE RECORDS SUMMARY | 2025-06-25 07:03 | XMS_ITS | Encounter Summary ---
Author Organization [facility] Address [address] [place] [address] Care Team Providers Care Consumer Experience Consultant Name Role Phone Eliceo Gómez DO Primary Care Provider [phone] Eliceo Gómez DO Unavailable [phone] Beata Hernandez Unavailable Juan Damico DO Unavailable [phone] Encounter Details Date Type Department Care Team [...] often do you attend chur ch or baptism services? Never 04/14/2023 Do you [...] 0 07/06/2023 [facility] - Occupational Stress Questionnaire Answer Date [...] [address] [place] [address] Chantale Sweet PA [address] [place] [address] 11/20/2025 8:30 AM EST Office Visit [facility] [address] [place] [address] Nelsy Harris APRN-TEACHER OF THE DEAF/HARD OF HEARING [address] [place] [address] documented as of this encounter Procedures Procedure Name Priority Date/Time Associated Diagnosis Comments XR FOOT RT MIN 3V 08/03/2023 2:3 8 PM EDT documented in this encounter Results * XR FOOT RT MIN 3V (08/03/2023 2:38 PM EDT) Anatomical Region Laterality Modality Other 08/03/2023 2:38 PM EDT Narrative 08/03/2023 2:38 [place] [address] XRay Report Signed Patient: MARY FUENTES MR#: [id number] : 1970 Acct:[id number] Age/Sex: 53 / F ADM Date: Loc: RAD Attending Dr: Sade Felix D.P.M. Ordering Physician: Sade Felix M.D. Date of Service: 08/03/23 Procedure(s): XR foot RT min 3V Accession Number(s): [id number] cc: Sade Felix M.D.; Isatu GÓMEZ [place] [address] Patient Name: MARY FUENTES MRN: [id number] date: 1970 Sex: F Assigned Patient Location: [facility] Current Patient Location: [facility] Accession/Order Number: [id number] Exam Date: 08/03/2023 13:35 Report Date: 08/03/2023 14:38 At the request of: SADE FELIX Procedure: XR foot RT min 3V STUDY: XR foot RT min 3V, [id number] HISTORY: RIGHT FOOT PAIN COMPARISON: Right foot [...] Signed By: 08/03/23 1441 DD/ 1438 TD/TT: Hvac Project Manager: Procedure Note Radiology, Radiologist, MD - 08/03/2023 [place] [address] XRay Report Signed Patient: MARY FUENTES DMR#: [id number] : 1970Acct:[id number] Age/Sex: 53 / FADM Date: Loc: [facility] Attending Dr: Sade Felix D.P.M. Ordering Physician: Sade Felix M.D. Date of Service: 08/03/23 Procedure(s): XR foot RT min 3V Accession Number(s): [id number] cc: Sade Felix M.D.; Isatu GÓMEZ [place] [address] Patient Name: MARY FUENTES MRN: [id number] date: 1970 Sex: F Assigned Patient Location: [facility] Current Patient Location: [facility] Accession/Order Number: [id number] Exam Date: 08/03/2023 13:35 Report Date: 08/03/2023 14:38 At the request of: SADE FELIX Procedure: XR foot RT min 3V STUDY: XR foot RT min 3V, [id number] HISTORY: RIGHT FOOT PAIN COMPARISON: Right foot [...] Yang Signed By:08/03/23 1441 DD/ 1438 TD/TT: Hvac Project Manager: us Generic External Data Provider [facility] Final Result documented in this encounter Visit Diagnoses Not on filedocumented in this encounter Care Teams Consumer Experience Consultant Relationship Specialty Start Date End Date Eilceo Gómez DO [address] [place] [address] PCP - General Family Medicine 04/04/23 Eliceo Gómez DO [address] [place] [address] PCP - [facility] 05/06/23 Beata Hernandez PA [address] [place] [address] Dietitian Nutrition 08/08/23 05/16/24 Juan Damico DO [address] [place] [address] Referring Physician Obstetrics and Gynecology 05/20/24 documented as of this encounter
--- OUTSIDE RECORDS SUMMARY | 2025-06-25 07:03 | XMS_ITS | Encounter Summary ---
Author Organization [facility] Address [address] [place] [address] Care Team Providers Care Learning Coordinator Name Role Phone Eliceo Gómez DO Primary Care Provider [phone] Eliceo Gómez DO Unavailable [phone] Beata Hernandez Unavailable Juan Damico DO Unavailable [phone] Encounter Details Date Type Department Care Team (Late st Contact Info) Description 07/12/2023 Orders Only [facility] [place] [facility] [address] [place] [address] A, Unknown Practice [address] [place] [address] Social History Tobacco Use Types Packs/Day Years [...] you attend chur or mosque services? Never 04/14/2023 Do you [...] Questionnaire-2 Score 0 07/06/2023 [facility]at ional [facility] - [...] [address] [place] [address] Chantale Sweet PA [address] [place] [address] 11/20/2025 8:30 AM EST Office Visit [facility] [address] [place] [address] Nelsy Harris, RETAIL AND RESTAURANT ASSOCIATE-US ADMINISTRATIVE LAW JUDGE [address] [place] [address] documented as of this encounter Procedures Procedure [...] filedocumented in this encounter Care Teams Learning Coordinator Relationship Specialty Start Date End Date Eliceo Gómez DO [address] [place] [address] PCP - General Family Medicine 04/04/23 Eliceo Gómez DO [address] [place] [address] PCP - [facility] 05/06/23 Beata Hernandez PA [address] [place] [address] Dietitian Nutrition 08/08/23 05/16/24 Juan Damico DO [address] [place] [address] Referring Physician Obstetrics and Gynecology 05/20/24 documented as of this encounter
--- OUTSIDE RECORDS SUMMARY | 2025-06-25 07:04 | XMS_ITS | Encounter Summary ---
Author Organization [facility] Address [address] [facility] [place] [address] Care Team Providers Care Medical Insurance Claims Processor Name Role Phone Eliceo Gómez DO Primary Care Provider [phone] Eliceo Gómez DO Unavailable [phone] Juan Damico DO Unavailable [phone] Encounter Details Date Type Department Care Team (Late st Contact Info) Description 06/20/2024 Abstract [facility] [place] [facility] [address] [facility] [address] [place] [address] Eliceo Gómez DO [address] [facility] [address] [place], [place] [address] Social History Tobacco Use Types Packs/Day Years [...] attend chur ch or yarsanism services? Never 05/01/2024 Do you [...] Recorded Patient Health Questionnaire-2 Score 0 06/12/2024 [facility] of Occupat ional Health - Occupational Stress [...] any time in the [facility], were you homeless or living [...] Dermatology [address] [place] [address] Chantale Sweet PA [address] [place] [address] 11/20/2025 8:30 AM EST Office Visit [facility] [address] [place] [address] Nelsy Harris, BURNT LIME DRAWER-MERGERS AND ACQUISITIONS MANAGER [address] [place] [address] documented as of this encounter Visit Diagnoses Not on filedocumented in this encounter Care Teams Medical Insurance Claims Processor Relationship Specialty Start Date End Date Eliceo Gómez DO [address] [place] [address] PCP - General Family Medicine 04/04/23 Eliceo Gómez DO [address] [place] [address] PCP - [facility] 05/06/23 Juan Damico DO [address] [place] [address] Referring Physician Obstetrics and Gynecology 05/20/24 documented as of this encounter
--- OUTSIDE RECORDS SUMMARY | 2025-06-25 07:04 | XMS_ITS | Encounter Summary ---
Author Organization [employer] Address [id number] [address] [place] [address] Care Team Providers Care Gambreler Name Role Phone Dalia Morales DO, George R Primary Care Provider + Encounter Details Date Type Department Care Team (Late st Contact Info) Description 10/03/2023 [facility] [address] [place] [address] Kim Acharya RN Social History [...] to patient since he was contacted by [facility] stating patient was reaching out about eligibility. [...] Description 06/27/2025 3:30 PM EDT Hospital Encounter [facility] - Endoscopy [address] [place] [address], [address] [place] [address] Noman Mayo MD [address] [facility] [address] [place] [address] 06/27/2025 3:30 PM EDT - 06/27/2025 4:00 PM EDT Surgery [facility] - Endoscopy [address] [place] [address], [address] [place] [address] Noman Mayo MD [address] [facility] [address] [place] [address] ESOPHAGOGASTRODUODENOSCOPY DILATATION 07/15/2025 9:00 AM EDT Office Visit [facility] Neurology, A Department of [address], [address] [place] [address] Justin Bhat MD [address] [place] [address] 101, [address], [address] [place] [address] 08/19/2025 3:30 PM EDT Office Visit [facility]rology, A Department of [address], [address] [place] [address] Pauline Christensen MD [address] [place] [address] 101, [address], [address] [place] [address] Scheduled Procedures Name Priority Associated Diagnoses Date/Ti ct ESOPHAGOGASTRODUODENOSCOPY DILATATION esophageal dysphagia 06/27/2025 3:30 PM EDT documented as of this encounter Visit Diagnoses Not on filedocumented in this encounter Additional Health Concerns Assessment Noted Time PHQ-9 Depression Total Score: 0 01/27/20 23 1:28 PM EDT documented as of this encounter Care Teams Gambreler Relationship Specialty Start Date End Date Eliceo Gómez Jr., DO [address] [place] [address], [address] [place] [address] PCP - General Family Medicine 12/11/19 Jenna Butler [address] Consulting Physician Behavioral Health 12/20/23 documented as of this encounter
--- OUTSIDE RECORDS SUMMARY | 2025-06-25 07:04 | XMS_ITS | Encounter Summary ---
Author Organization [facility] Address [address] [facility] [place] [address] Care Team Providers Care Customer Success Specialist Name Role Phone Eliceo Gómez DO Primary Care Provider [phone] Juan Damico DO Unavailable [phone] Encounter Details Date Type Department Care Team (Late st Contact Info) Description 05/20/2025 Abstract [facility] [place] [facility] [address] [facility] [address] [place] [address] Eliceo Gómez DO [address] [facility] [address] [place] [address] Social History Tobacco Use Types [...] attend chur ch or judaism services? Never 05/01/2024 Do you [...] Recorded Patient Health Questionnaire-2 Score 0 01/20/2025 [facility] of Occupat ional Health - Occupational [...] Dermatology [address] [place] [address] Chantale Sweet PA [address] [place] [address] 11/20/2025 8:30 AM EST Office Visit [facility] [address] [place] [address] Nelsy Harris, CLASSIFIED COPY CONTROL CLERK-WOOD MILL SUPERVISOR [address] [place], [place] [address] documented as of this encounter Visit Diagnoses Not on filedocumented in this encounter Additional Health Concerns Assessment Noted Time PHQ-9 Depression Total Score: 0 01/21/20 25 1:00 PM EDT documented as of this encounter Care Teams Customer Success Specialist Relationship Specialty Start Date End Date Eliceo Gómez DO [address] [place] [address] PCP - General Family Medicine 04/04/23 Juan Damico DO [address] [place] [address] Referring Physician Obstetrics and Gynecology 05/20/24 documented as of this encounter
--- OUTSIDE RECORDS SUMMARY | 2025-06-25 07:04 | XMS_ITS | Encounter Summary ---
Author Organization [facility] Address [facility] [id number] [address] [place] [address] Care Team Providers Care Uncrater Name Role Phone Dalia Morales DO, George R Primary Care Provider + Encounter Details Date Type Department Care Team (Late st Contact Info) Description 09/19/2023 Telephone [facility] - [address], [address] [place] [address] Cullen Dawkins MD [address] [place] [address] [address] [place] [address] Social History Tobacco Use Types Packs/Day Years [...] Description 06/27/2025 3:30 PM EDT Hospital Encounter [facility] - Endoscopy [address] [facility], [address] [place] [address] Noman Mayo MD [address] [facility] [address] [place] [address] 06/27/2025 3:30 PM EDT - 06/27/2025 4:00 PM EDT Surgery [facility] - Endoscopy [address] [facility], [address] [place] [address] Noman Mayo MD [address] [facility] [address] [place] [address] ESOPHAGOGASTRODUODENOSCOPY DILATATION 07/15/2025 9:00 AM EDT Office Visit [facility] Neurology, A Department of [facility] [address] [facility] [address] [place] [address] Justin Bhat MD [address] [place] [address] 101, [address] [place] [address] 08/19/2025 3:30 PM EDT Office Visit [facility] [address] [place] [address] Pauline Christensen MD [address] [place] [address] 101, [address] [place] [address] Scheduled Procedures Name Priority Associated Diagnoses Date/Ti me ESOPHAGOGASTRODUODENOSCOPY DILATATION esophageal dysphagia 06/27/2025 3:30 PM EDT documented as of this encounter Visit Diagnoses Not on filedocumented in this encounter Additional Health Concerns Assessment Noted Time PHQ-9 Depression Total Score: 0 01/27/20 23 1:28 PM EDT documented as of this encounter Care Teams Uncrater Relationship Specialty Start Date End Date Eliceo Gómez Jr., [address] [place] [address], [address] [place] [address] PCP - General Family Medicine 12/11/19 Jenna Butler [address] Consulting Physician Behavioral Health 12/20/23 documented as of this encounter
--- OUTSIDE RECORDS SUMMARY | 2025-06-25 07:04 | XMS_ITS | Encounter Summary ---
Author Organization [facility] Address [address] [facility] [place] [address] Care Team Providers Care Obstetrics Specialist Name Role Phone Eliceo Gómez DO Primary Care Provider [phone] Eliceo Gómez DO Unavailable [phone] Juan Damico DO Unavailable [phone] Encounter Details Date Type Department Care Team (Late st Contact Info) Description 05/29/2024 Abstract [facility] [place] [facility] [address] [facility] [address] [place] [address] Eliceo Gómez DO [address] [facility] [address] [place], [place] [address] Social History Tobacco Use Types Packs/Day Years [...] attend chur ch or zoroastrian services? Never 05/01/2024 Do you [...] Recorded Patient Health Questionnaire-2 Score 0 05/14/2024 [facility] of Occupat ional Health - Occupational Stress [...] Dermatology [address] [place] [address] Chantale Sweet PA [address] [place] [address] 11/20/2025 8:30 AM EST Office Visit [facility] [address] [place] [address] Nelsy Harris, SENIOR PUBLICATIONS SPECIALIST-SCHOOL AGE LEAD TEACHER [address] [place] [address] documented as of this encounter Visit Diagnoses Not on filedocumented in this encounter Care Teams Obstetrics Specialist Relationship Specialty Start Date End Date Eliceo Gómez DO [address] [place] [address] PCP - General Family Medicine 04/04/23 Eliceo Gómez DO [address] [place] [address] PCP - [facility] 05/06/23 Juan Damico DO [address] [place] [address] Referring Physician Obstetrics and Gynecology 05/20/24 documented as of this encounter
--- OUTSIDE RECORDS SUMMARY | 2025-06-25 07:04 | XMS_ITS | Clinical Summary ---
Author Organization [facility] Address [address] [place] [address] Care Team Providers Care Apricot Washer Name Role Phone Eliceo Gómez DO Primary Care Provider [phone] Juan Damico DO Unavailable [phone] Allergies Active Allergy Reactions Criticality Noted Date Comments Poison Brenda Extract Rash Low 04/06/2023 Risperidone 04/22/2019 Other Reaction(s): breast discharge Medications Daridorexant HCl (Quviviq) 50 MG tabletIndicatio ns:Insomnia Take 50 mg by mouth at bedtime Active L-Theanine 200 MG capsule Take 1 capsule by mouth Daily Active colestipol (Colestid) 1 g tablet Take 1 g by mouth in the morning and 1 g in the evening. 024 Active Multiple Vitamin (Daily-Elisa Multivitamin) tablet Take 1 tablet by mouth Daily 024 Active cyproheptadine (Periactin) 4 MG tablet Take 4 mg by mouth as needed at bedtime 025 Active omeprazole (PriLOSEC) [address] capsuleIndicati ons:Gastro-esop hageal reflux disease without esophagitis Take 1 capsule (40 mg) by mouth in the morning. 90 capsule 3 025 Active rOPINIRole (Requip) 2 MG tabletIndicatio ns:Restless legs syndrome Take 1 tablet (2 mg) by mouth at bedtime 025 Active fluticasone (Flonase) 50 MCG/ACT nasal sprayIndication s:Disorder of right eustachian tube Administer 2 sprays into each nostril Daily Shake gently. Before first use, prime pump. After use, clean tip and replace cap. 16 g 11 025 2025 Active meloxicam (Mobic) 15 MG tablet TAKE 1 TABLET BY MOUTH EVERY DAY FOR 30 DAYS 025 Active Trelegy Ellipta 100-62.5-25 MCG/ACT aerosol powderIndicatio ns:Mild intermittent asthma, unspecified whether complicated (HCC) INHALE 1 PUFF BY MOUTH DAILY 60 each 1 025 Active albuterol HFA 90 mcg/act inhalerIndicati ons:Mild intermittent asthma, unspecified whether complicated (HCC) INHALE 2 PUFFS EVERY 4 HOURS IF NEEDED FOR WHEEZING. 18 g 1 025 Active losartan (Cozaar) 50 MG tabletIndicatio ns:Hypertension , unspecified type TAKE 1 TABLET BY MOUTH EVERY DAY 90 tablet 1 025 Active rOPINIRole (Requip) 1 MG tabletIndicatio ns:Restless legs syndrome TAKE 1 TABLET BY MOUTH IN THE MORNING 90 tablet 1 025 Active atenolol (Tenormin) 50 MG tabletIndicatio ns:Hypertension , unspecified type TAKE 1 TABLET BY MOUTH EVERY DAY 90 tablet 1 025 Active lisdexamfetamin e (Vyvanse) 70 MG capsule Take 70 mg by mouth Daily 025 Active Albuterol-Budes onide (Airsupra) 90-80 MCG/ACT aerosolIndicati ons:Mild persistent asthma with acute exacerbation (HCC) Inhale 2 Inhalations every 4 (four) hours if needed (for wheezing) 10.7 g 11 025 Active Abilify Maintena 400 MG injection syringe INJECT INTRAMUSCULARLY ONCE A MONTH (BRING TO OFFICE FOR PROVIDER TO ADMINISTER) 025 Active Natural Vitamin D-3 125 MCG (5000 UT) tablet Take 5,000 Units by mouth Daily 025 Active mirtazapine (Remeron) 30 MG tablet Active amphetamine-dex troamphetamine XR (Adderall XR) 25 MG 24 hr capsule Take 25 mg by mouth in the morning and 25 mg before bedtime. 08/13/2 025 Active zonisamide (Zonegran) 50 MG capsule Take 50 mg by mouth Daily 025 Active estradiol (Estrace) 1 MG tabletIndicatio ns:Night sweats Take 1 tablet (1 mg) by mouth Daily 90 tablet 3 025 2025 Active estradiol (Estrace) 0.1 MG/GM vaginal creamIndication s:Hormone replacement therapy,Dyspare unia in female Apply 0.5g vaginally twice weekly. 42.5 g 1 025 Active triamcinolone (Kenalog) 0.1 % creamIndication s:Erythema Apply topically in the morning and before bedtime. to affected area. 45 g 1 025 Active cholecalciferol (Vitamin D-3) 125 MCG (5000 UT) capsule Take 125 mcg by mouth Daily 024 2024 Discontinued(D uplicate order) estradiol (Estrace) 1 MG tabletIndicatio ns:Night sweats Take 1 tablet (1 mg) by mouth Daily 90 tablet 3 024 2024 Discontinued(R eorder) atenolol (Tenormin) 50 MG tabletIndicatio ns:Hypertension , unspecified type Take 1 tablet (50 mg) by mouth Daily 90 tablet 1 025 2024 Discontinued ARIPiprazole ER (Abilify) 400 MG injection Inject 400 mg into the shoulder, thigh, or buttocks 1 (one) time 2024 Discontinued(D uplicate order) mirtazapine (Remeron) 15 MG tablet 025 2024 Discontinued(D uplicate order) lisdexamfetamin e (Vyvanse) 60 MG capsule 025 2024 Discontinued rOPINIRole (Requip) 1 MG tabletIndicatio ns:Restless legs syndrome Take 1 tablet (1 mg) by mouth in the morning and 1 tablet (1 mg) before bedtime. 60 tablet 5 025 2024 Discontinued estradiol (Estrace) 0.1 MG/GM vaginal creamIndication s:Hormone replacement therapy,Dyspare unia in female Apply 0.5g vaginally twice weekly. 42.5 g 025 2024 Discontinued(R eorder) triamcinolone (Kenalog) 0.1 % creamIndication s:Erythema APPLY TO AFFECTED AREA TWICE A DAY 45 g 1 025 2024 Discontinued(R eorder) Active Problems Problem Noted Date Diagnosed Date Chronic migraine without aur a without status migrainosus, not intractable 09/26/2024 Heat intolerance 09/08/2023 Presence of functional implant, unspecified 08/06 Osteoarthritis of right foot 05/23/2023 Presence of right artificial ankle joint 023 Primary localized osteoarthrosis of ankle and fo ot 05/23/2023 Bipolar 1 disorder 04/06/2023 Overview (04/06/2023): Last Assessment & Plan: Assessment: Pt. reports mood is stable with medication. Reports borderline personality Follows with psychiatry and counseling Chronic interstitial cystitis 04/06/2023 Abnormal mammogram 04/04/2023 ADD (attention deficit disorder) without hyperac tivity 04/04/2023 Allergic rhinitis 04/04/2023 Anxiety 04/04/2023 Asthma 04/04/2023 Atopic dermatitis 04/04/2023 Basal cell carcinoma (BCC) of chest 04/04/2023 Degenerative disc disease, cervical 04/04/2023 Facet arthritis of cervical region 04/04/2023 Gastro-esophageal reflux disease without esophag itis 04/04/2023 Gastroparesis 04/04/2023 Hot flashes due to menopause 04/04/2023 Hyperlipidemia 04/04/2023 Hypertension 04/04/2023 Insomnia 04/04/2023 Mood swing 04/04/2023 Restless legs syndrome 04/04/2023 Tarsal tunnel syndrome 04/04/2023 Tension headache 04/04/2023 Vitamin D deficiency 04/04/2023 Arthritis of left foot 01/06/2023 CHUCKEI (obstructive sleep apnea) 11/21/2022 Overview (04/06/2023): Last Assessment & Plan: Assessment: is not currently using CPAP - could not tolerate settings and needs a titration assessment B12 deficiency 10/23/2022 Migraine 10/23/2022 JOLEEN (generalized anxiety disorder) 09/13/2022 Major depressive disorder, recurrent, moderate 1 11/13/2021 Urinary urgency 08/01/2022 Chronic idiopathic constipation 03/15/2022 Genitourinary syndrome of menopause 08/04/2021 Sleep disturbance 08/04/2021 Lingual tonsil hypertrophy 05/18/2021 Chronic sinusitis 03/12/2021 S/P tonsillectomy 02/18/2021 Chronic cluster headache, not intractable 2020 Chronic tonsillitis 01/11/2021 Nasal congestion 01/11/2021 Arthritis of right acromioclavicular joint 09/29 Impingement syndrome of right shoulder 0 Partial nontraumatic rupture of right rotator cu ff 09/29/2020 Unspecified inflammatory spondylopathy, cervical region 07/30/2018 Resolved Problems Problem Noted Date Diagnosed Date Resolved Date Belching 11/30/2023 06/23/2025 Pain due to internal orthope dic prosthetic devices, implants and grafts, initial encounter 11/09/2023 06/23/2025 Cough 10/02/2023 06/23/2025 Overview (10/24/2023): Onset Date: 20231002 Wheezing 10/02/2023 06/23/2025 Overview (10/24/2023): Onset Date: 20231002 Weight loss 09/08/2023 06/23/2025 History of stress fracture 07/06/2023 0 06/23/2025 Arthritis 04/06/2023 06/23/2025 Incontinence 04/06/2023 06/23/2025 Overactive bladder 04/06/2023 Hyperglycemia 04/06/2023 10/03/2023 RUQ pain 04/06/2023 06/23/2025 Bipolar affective disorder, most recent episode mixed 04/04/2023 06/23/2025 Colostomy present 04/04/2023 09/07/2023 Dysphagia 04/04/2023 01/23/2024 Obesity (BMI 30-39.9) 04/04/20232022 Sciatica 04/04/2023 07/05/2023 Nausea 11/30/2022 06/23/2025 Chronic pelvic pain in female 08/01/2022 06/23/2025 Dysuria 08/01/2022 06/23/2025 Headache 08/01/2022 06/23/2025 History of 2019 novel schmidt virus disease (COVID-19) 08/01/2022 06/23/2025 Overview (10/24/2023): Last Assessment & Plan: Assessment: patient reports she had COVID-19 in mid-August 2021 and October 2021. Reports she did takes Prednisone x 5 days on August 30, but denies requiring hospitalization. Denies residual SOB or cough Increased frequency of urination 08/01/2022 06/23/2025 Poor urinary stream 08/01/2022 06/23/20 25 Stress incontinence in female 08/01/2022 06/23/2025 Lack of coordination 01/18/2022 023 Follow-up examination after colorectal surgery 01/18/2022 06/23/2025 Pelvic floor dysfunction 12/24/2021 Other fatigue 04/01/2021 06/23/2025 S/P nasal septoplasty 02/18/20212024 Daytime hypersomnia 12/07/2020 06/23/20 25 Encounters Date Type Department Care Team Description 06/24/2025 9:00 AM EDT Office Visit [facility] [address] [place] [phone] Juan Damico, Encounter for gynecological examination without abnormal finding; Encounter for Papanicolaou smear of vagina; Breast cancer screening by mammogram; Hormone replacement therapy; Chronic vulvitis; Night sweats; Dyspareunia in female; Erythema 06/24/2025 Travel 06/06/2025 2:20 PM EDT Office Visit [facility] [address] [place] [address] Benedicto Salas PA Mild persistent asthma with acute exacerbation (HCC) (Primary Dx) 06/06/2025 Travel 06/05/2025 Refill [facility] [place] [address] Eliceo Gómez, DO Restless legs syndrome; Hypertension, unspecified type 06/04/2025 Travel 05/20/2025 Abstract [facility] [address] [place] [address] Eliceo Gómez, 05/10/2025 Refill [facility] [address] [place] [address] Eliceo Gómez, Hypertension, unspecified type 04/30/2025 Abstract [facility] [address] [place] [address] Eilceo Gómez DO 04/13/2025 Refill [facility] [address] [place] [address] Hyacinth King, DEMARCUS Mild intermittent asthma, unspecified whether complicated (HCC) 04/13/2025 Refill [facility] [place] [facility] [address] [place] [address] Juan Damico, DO Erythema 04/10/2025 Refill [facility] [place] [facility] [address] [place] [address] Nereyda Murphy LPN Hormone replacement therapy; Dyspareunia in female 04/02/2025 Abstract [facility] [address] [place] [address] Eliceo Gómez, DO from Last 3 Months [...] week 06/04/2025 How often do you attend [facility] or latter day services? Never 06/04/2025 Do you belong to [...] 06/24/2025 [facility] - Occupational Stress Questionnaire Answer Date Recorded [...] money to buy more. Never true 06/04/20 25 Within the past 12 months, t he [...] any time in the past 12 m [facility], were you homeless or living in a snf (including now)? No 06/04/2025 Comments No Sex and Gender Information Value Date Recorded Sex Assigned at Female 03/13/2023 7:50 AM EDT Legal Sex Female 7:14 PM EDT Gender Identity Female 01/18/2023 7:14 PM EDT Sexual Orientation Not on file Last Filed Vital Signs Vital Sign Reading Time Taken Comments Blood Pressure 126/78 06/24/2025 8:57 AM EDT Pulse 79 06/06/2025 2:19 PM EDT Temperature 36.8 C (98.2 F) 06/06/2025 2:19 PM EDT Respiratory Rate - - Oxygen Saturation 96% 06/06/2025 2:19 PM EDT Inhaled Oxygen Concentration - - Weight 74.8 kg (165 lb) 06/24/2025 8:57 AM EDT Height 162.6 cm (5' 4 ) 06/24/2025 8:57 AM EDT Body Mass Index 28.32 06/24/2025 8:57 AM EDT Plan of Treatment Upcoming Encounters Date Type Department Care Team (Late st Contact Info) Description 07/09/2025 3:00 PM EDT Office Visit [facility] [address] [place] [address] Chantale Sweet PA [address] [place] [address] 11/20/2025 8:30 AM EST Office Visit [facility] [address] [place] [address] PradeepNelsy randall, C ENGINEER-ONE PIECE EXPANSION MAKER HAND [address] [place] [address] Health Maintenance Due Date Last Done Comments Mammogram 10/31/2024 10/31/2023, 09/07, 09/14/2022, Additional history exists Pap Smear Discontinued 10/27/1998 [...] has been evaluated with computer assisted technology. STOVE TENDER QUEST Comment: EMP, CT(ASCP) CT screening location: [facility] [place], [address] [place] [id number]. (ALWAYS MESSAGE) QUEST Comment: EXPLANATORY NOTE: The [...] Performing Organization Information Site ID: [id number] Name: [facility] Address: [address] [place] [address], [address] [place] [phone] Director: Gopal Hamilton MD Juan Damico DO LAB CYTOLOGY ORDERABLES Emilie l Result QUEST * Bilateral screening mammogram with tomosynthesis (10/31/2023 1:06 PM EST) Anatomical Region Laterality Modality Breast Bilateral Mammography 11/07/2023 10:2 9 AM EST Impressions 11/07/2023 1:04 PM EST BIRADS 1 - Negative Follow-up: Routine Screening Mamm . Board Certified Radiologists. Accredited by the ACR and FDA. MAMMOGRAPHY IS VERY IMPORTANT TO YOUR HEALTH. THE [employer] GUIDELINES RECOMMEND THAT WOMEN 40 [...] IS VERY IMPORTANT TO YOUR HEALTH. THE [employer] SOCIETYGUIDELINES RECOMMEND THAT WOMEN 40 YEARS [...] Narrative 03/20/2020 12:00 AM EDT PERFORMED AT [facility] LOCATION:[place] [address] Procedure Note CONVERSION, GENERIC - 03/22/2023 PERFORMED AT [facility] LOCATION:[place] [address] Eliceo Gómez DO ENDOSCOPY PROCEDURE ORDERABLE S Final Result * OCC BLD IMMUNOASSAY (03/13/2020) OCCULT BLOOD NEGATIVE NEGATIVE [facility] PERFORMING LAB: see note [facility] Comment:[facility] - Financial Planning Advisor Makenna Flores,[facility] [address] [address] ,Ext. [phone] 03/13/2020 Eliceo Gómez DO [facility] Final Result Performing Organization Address City/State/[place] Co de Phone Number [facility] from Last 3 Months or Most Recently Relevant to Health Maintenance [place] [address] [place] [id number] [facility] Care Teams Apricot Washer Relationship Specialty Start Date End Date Eliceo Gómez DO [address] [place], [place] [phone] PCP - General Family Medicine 04/04/23 Juan Damico DO [address] [address] Referring Physician Obstetrics and Gynecology 05/20/24
--- OUTSIDE RECORDS SUMMARY | 2025-06-25 07:04 | XMS_ITS | Encounter Summary ---
Author Organization [facility] Address [address] [facility] [place] [address] Care Team Providers Care Senior Partner Name Role Phone Eliceo Gómez DO Primary Care Provider [phone] Eliceo Gómez DO Unavailable [phone] Juan Damico DO Unavailable [phone] Encounter Details Date Type Department Care Team (Late st Contact Info) Description 07/10/2024 Abstract [facility] [place] [facility] [address] [facility] [address] [place] [address] Eliceo Gómez DO [address] [facility] [address] [place], [place] [phone] Social History Tobacco Use Types Packs/Day Years [...] attend chur ch or worship services? Never 05/01/2024 Do you belong to [...] Recorded Patient Health Questionnaire-2 Score 0 07/11/2024 [facility] [place] - Occupational Stress [...] 07/11/2024 9:44 AM EDT Mikala Fowler LPN Feeling down, depressed, or hopeless Not at all 07/11/2024 9:44 AM EDT Mikala Fowler LPN Patient Health Questionnaire-2 Score 0 07/11/2024 9:44 AM EDT Nicole Fowler LPN documented as of this encounter Plan of Treatment Upcoming Encounters Date Type Department Care Team (Late st Contact Info) Description 07/09/2025 3:00 PM EDT Office Visit [facility] [address] [place] [address] Chantale Sweet PA [address] [place] [address] 11/20/2025 8:30 AM EST Office Visit [facility] [address] [place] [address] Nelsy Harris APRN-BSS SOLUTION ARCHITECT [address] [place] [address] documented as of this encounter Visit Diagnoses Not on filedocumented in this encounter Care Teams Senior Partner Relationship Specialty Start Date End Date Eliceo Gómez DO [address] [place] [address] PCP - General Family Medicine 04/04/23 Eliceo Gómez DO [address] [place] [address] PCP - [facility] 05/06/23 Juan Damico DO [address] [place] [address] Referring Physician Obstetrics and Gynecology 05/20/24 documented as of this encounter
--- OUTSIDE RECORDS SUMMARY | 2025-06-25 07:04 | XMS_ITS | Encounter Summary ---
Author Organization [facility] Address [address] [place] [address] Care Team Providers Care Iphone Developer Name Role Phone Eliceo Gómez DO Primary Care Provider [phone] Juan Damico DO Unavailable [phone] Encounter Details Date Type Department Care Team (Latest Contact Info) Description 06/24/2025 Travel Social History Tobacco Use Types Packs/Day [...] 06/04/2025 How often do you attend chur ch or holiness services? Never 06/04/2025 Do you belong to [...] Recorded Patient Health Questionnaire-2 Score 0 06/24/2025 [facility] of Occupat ional [...] in the past 12 m [facility], were you homeless or living in a penitentiary (including now)? No 06/04/2025 Comments No Sex and Gender Information Value Date Recorded Sex Assigned at Female 03/13/2023 7:50 AM EDT Legal Sex Female 7:14 PM EDT Gender Identity Female 01/18/2023 7:14 PM EDT Sexual Orientation Not on file documented as of this encounter Functional Status * Audit-C Score Answer Date of Assessment Author 0 06/24/2025 8:59 AM Amando Terry MA * Question Answer Date of Assessment Author Q1: How often do you have a drink containing alcohol? Never 06/24/2025 8:59 AM Nida Terry MA Q2: How many drinks containing alcohol do you have on a typical day when you are drinking? Patient does not drink 06/24/2025 8:59 AM Nida Terry MA Q3: How often do you have six or more drinks on one occasion? Never 06/24/2025 8:59 AM Nida Terry MA * Over the past 2 weeks, how often have you been bothered by any of the following problems? Question Answer Date of Assessment Author Little interest or pleasure in doing things Not at all 06/24/2025 8:59 AM EDT Nida Toro MA Feeling down, depressed, or hopeless Not at all 06/24/2025 8:59 AM EDT Nida Toro MA Patient Health Questionnaire -2 Score 0 06/24/2025 8:59 AM EDT Nida Toro MA documented as of this encounter Plan of [...] [address] [place] [address] Nelsy Harris, AUTO DESIGN CHECKER-BARREL COATER [address] [place], [place] [phone] documented as of this encounter Visit Diagnoses Not on filedocumented in this encounter Additional Health Concerns Assessment Noted Time PHQ-9 Depression Total Score: 0 01/21/20 25 1:00 PM EDT documented as of this encounter Care Teams Iphone Developer Relationship Specialty Start Date End Date Eliceo Gómez DO [address] [place] [address] PCP - General Family Medicine 04/04/23 Juan Damico DO [address] [place] [address] Referring Physician Obstetrics and Gynecology 05/20/24 documented as of this encounter
--- OUTSIDE RECORDS SUMMARY | 2025-06-25 07:04 | XMS_ITS | Encounter Summary ---
Author Organization [facility] Address [address] [facility] [place] [address] Care Team Providers Care Real Estate Agency Licensee Name Role Phone Eliceo Gómez DO Primary Care Provider [phone] Eliceo Gómez DO Unavailable [phone] Juan Damico DO Unavailable Encounter Details Date Type Department Care Team (Late st Contact Info) Description 05/27/2024 Abstract [facility] [place] [facility] [address] [facility] [address] [place] [phone] Eliceo Gómez DO [address] [facility] [address] [place], [place] [phone] Social History Tobacco Use Types Packs/Day Years [...] attend chur ch or denominational services? Never 05/01/2024 Do you belong to [...] Recorded Patient Health Questionnaire-2 Score 0 05/14/2024 [facility] of Occupat ional Health - Occupational Stress [...] any time in the past 12 m [facility], were you homeless or living in [...] Dermatology [address] [place] [address] Chantale Sweet PA [address] [place] [address] 11/20/2025 8:30 AM EST Office Visit [facility] [address] [place] [address] Nelsy Harris, METALLURGICAL SPECIALIST-REGISTERED NURSE FLOAT POOL [address] [place] [address] documented as of this encounter Visit Diagnoses Not on filedocumented in this encounter Care Teams Real Estate Agency Licensee Relationship Specialty Start Date End Date Eliceo Gómez DO [address] [place] [address] PCP - General Family Medicine 04/04/23 Eliceo Gómez DO [address] [place] [address] PCP - [facility] 05/06/23 Juan Damico DO [address] [place] [address] Referring Physician Obstetrics and Gynecology 05/20/24 documented as of this encounter
--- OUTSIDE RECORDS SUMMARY | 2025-06-25 07:04 | XMS_ITS | Encounter Summary ---
Author Organization [facility] Address [address] [place] [address] Care Team Providers Care Acura Sales Consultant Name Role Phone Eliceo Gómez DO Primary Care Provider Eliceo Gómez DO Unavailable [phone] Beata Hernandez Unavailable Juan Damico DO Unavailable [phone] Encounter Details Date Type Department Care Team (Late st Contact Info) Description 04/14/2023 Orders Only [facility] [place] [facility] [address] [place] [address] Jacob Felix MD [address] [place] [address] [place] [address] Social History Tobacco Use Types Packs/Day Years [...] Recorded Patient Health Questionnaire-2 Score 0 04/06/2023 [facility] of Occupat ional [...] Assessment Author 0 04/14/2023 3:46 PM EDT Mychart, Generic * Q1: How often do you have a drink containing alcohol? Answer Date of Assessment Author Never 04/14/2023 3:46 PM EDT Chiquist, Generic * Q2: How many drinks containing [...] [address] [place] [address] Chantale Sweet PA [address] [place] [address] 11/20/2025 8:30 AM EST Office Visit [facility] [address] [place] [address] Nelsy Harris APRN-EDGE DRUMMER [address] [place], [place] [phone] documented as of this encounter Procedures Procedure [...] on filedocumented in this encounter Care Teams Acura Sales Consultant Relationship Specialty Start Date End Date Eliceo Gómez DO [address] [place] [address] PCP - General Family Medicine 04/04/23 Eliceo Gómez DO [address] [place] [address] PCP - [facility] 05/06/23 Beata Hernandez PA [address] [place] [address] Dietitian Nutrition 08/08/23 05/16/24 Juan Damico DO [address] [facility] [address] [place] [phone] Referring Physician Obstetrics and Gynecology 05/20/24 documented as of this encounter
--- OUTSIDE RECORDS SUMMARY | 2025-06-25 07:04 | XMS_ITS | Encounter Summary ---
Author Organization [facility] Address [address] [facility] [place] [address] Care Team Providers Care Events Specialist Name Role Phone Eliceo Gómez DO Primary Care Provider [phone] Eliceo Gómez DO Unavailable [phone] Juan Damico DO Unavailable [phone] Encounter Details Date Type Department Care Team (Late st Contact Info) Description 05/29/2024 Abstract [facility] [place] [facility] [address] [facility] [address] [place] [address] Eliceo Gómez DO [address] [facility] [address] [place], [place] [id number] Social History Tobacco Use Types Packs/Day Years [...] often do you attend chur ch or orthodox services? Never 05/01/2024 Do you [...] Patient Health Questionnaire-2 Score 0 05/14/2024 [facility] [place] of Occupat ional Health - Occupational Stress [...] in the past 12 m [facility], were you homeless or living in [...] Dermatology [address] [place] [address] Chantale Sweet PA [address] [place] [address] 11/20/2025 8:30 AM EST Office Visit [facility] [address] [place] [address] Nlesy Harris, HEAD OF TRAINING AND DEVELOPMENT-WET PROCESS [employer] [address] [place] [address] documented as of this encounter Visit Diagnoses Not on filedocumented in this encounter Care Teams Events Specialist Relationship Specialty Start Date End Date Eliceo Gómez DO [address] [place] [address] PCP - General Family Medicine 04/04/23 Eliceo Gómez DO [address] [place] [address] PCP - [facility] 05/06/23 Juan Damico DO [address] [place] [address] Referring Physician Obstetrics and Gynecology 05/20/24 documented as of this encounter
--- OUTSIDE RECORDS SUMMARY | 2025-06-25 07:04 | XMS_ITS | Encounter Summary ---
Author Organization [facility] Address [address] [place] [address] Care Team Providers Care Senior Sas Developer Name Role Phone Eliceo Gómez DO Primary Care Provider Eliceo Gómez DO Unavailable [phone] Beata Heranndez Unavailable Juan Damico DO Unavailable [phone] Encounter Details Date Type Department Care Team (Late st Contact Info) Description 04/13/2023 Orders Only [facility] [place] [facility] [address] [place] [address] Jacob Felix MD [address] [place] [address] [place] [address] Social History Tobacco Use Types Packs/Day Years [...] Recorded Patient Health Questionnaire-2 Score 0 04/06/2023 [facility] of Occupat [...] a prison (including now)? No 04/14/2023 Comments Unknown Sex [...] [address] [place] [address] Chantale Sweet PA [address] [place] [address] 11/20/2025 8:30 AM EST Office Visit [facility] [address] [place] [address] Nelsy Harris APRN-CHILD CARE SPECIALIST [address] [place], [...] filedocumented in this encounter Care Teams Senior Sas Developer Relationship Specialty Start Date End Date Eliceo Gómez DO [address] [place] [address] PCP - General Family Medicine 04/04/23 Eliceo Gómez DO [address] [place] [address] PCP - [facility] 05/06/23 Beata Hernandez PA [address] [place] [address] Dietitian Nutrition 08/08/23 05/16/24 Juan Damico DO [address] [facility] [address] [place] [address] Referring Physician Obstetrics and Gynecology 05/20/24 documented as of this encounter
--- OUTSIDE RECORDS SUMMARY | 2025-06-25 07:04 | XMS_ITS | Encounter Summary ---
Author Organization [employer] Sys tem Address [id number] [address] [place] [address] Care Team Providers Care Textile Engraver Name Role Phone Dalia Morales DO, George R Primary Care Provider + Encounter Details Date Type Department Care Team (Late st Contact Info) Description 07/11/2023 Telephone [facility] [address] [facility] [address] [address] Cullen Dawkins MD [address] [place] [address] [place], [place] [id number] Social History Tobacco Use Types Packs/Day Years [...] Description 06/27/2025 3:30 PM EDT Hospital Encounter [facility] - Endoscopy [address] [place] [address], [address] [place] [address] [place] [address] [place] [address], [facility] [address] [place] [address] 06/27/2025 3:30 PM EDT - 06/27/2025 4:00 PM EDT Surgery [facility] - Endoscopy [address] [place] [address], [address] [place] [address] Noman Mayo MD 5700 [facility], [facility] [address] [place] [address] ESOPHAGOGASTRODUODENOSCOPY DILATATION 07/15/2025 9:00 AM EDT Office Visit [facility], A Department of [address] [place] [address] Justin Bhat MD [address] [place] [address] 101, [address], 103 [place] [address] 08/19/2025 3:30 PM EDT [facility], A Department of [address], [address] [place] [address] Pauline Christensen MD [address] [facility], [facility] 101, [address], [address] [place] [address] Scheduled Procedures Name Priority Associated Diagnoses Date/Ti me ESOPHAGOGASTRODUODENOSCOPY DILATATION esophageal dysphagia 06/27/2025 3:30 PM EDT documented as of this encounter Visit Diagnoses Not on filedocumented in this encounter Additional Health Concerns Assessment Noted Time PHQ-9 Depression Total Score: 0 01/27/20 23 1:28 PM EDT documented as of this encounter Care Teams Textile Engraver Relationship Specialty Start Date End Date Eliceo Gómez Jr., [address] [place] [address], [address], [place] [address] PCP - General Family Medicine 12/11/19 Jenna Butler [address] [place] [address] Consulting Physician Behavioral Health 12/20/23 documented as of this encounter
--- OUTSIDE RECORDS SUMMARY | 2025-06-25 07:04 | XMS_ITS | Encounter Summary ---
Author Organization [facility] Address [address] [place] [facility] [place] [address] Care Team Providers Care Regional Company Truck Driver Name Role Phone Eliceo Gómez DO Primary Care Provider Eliceo Gómez DO Unavailable [phone] Beata Hernandez Unavailable Juan Damico DO Unavailable [phone] Encounter Details Date Type Department Care Team (Late st Contact Info) Description 03/04/2024 Abstract [facility] [place] [facility] [address] [facility] [address] [place] [address] Eliceo Gómez DO [address] [facility] [address] [place] [address] Social History Tobacco Use Types Packs/Day Years [...] Questionnaire-2 Score 0 10/03/2023 [facility] of Occupat ional Health - [...] [address] [place] [address] Chantale Sweet PA [address] [place] [address] 11/20/2025 8:30 AM EST Office Visit [facility] [address] [place] [address] Nelsy Harris APRN-PROTECTIVE SIGNAL OPERATIONS SUPERVISOR [address] [place] [address] documented as of this encounter Visit Diagnoses Not on filedocumented in this encounter Care Teams Regional Company Truck Driver Relationship Specialty Start Date End Date Eliceo Gómez DO [address] [place] [address] PCP - General Family Medicine 04/04/23 Eliceo Gómez DO [address] [place] [address] PCP - [facility] 05/06/23 Beata Hernandez PA [address] [place] [address] Dietitian Nutrition 08/08/23 05/16/24 Juan Damico DO [address] [place] [address] Referring Physician Obstetrics and Gynecology 05/20/24 documented as of this encounter
--- OUTSIDE RECORDS SUMMARY | 2025-06-25 07:04 | XMS_ITS | Encounter Summary ---
Author Organization [facility] [employer] [facility] tem Address [id number] [address] [place] [address] Care Team Providers Care Revenue Stamp Clerk Name Role Phone Dalia Morales DO, George R Primary Care Provider + Reason for Visit * Reason Onset Date Comments Pt wants to schedule surgery 11/24/2023 Encounter Details Date Type Department Care Team (Late st Contact Info) Description 11/24/2023 Telephone [facility] - ENT [address] [place] [address], [address] [place] [address] Cullen Dawkins MD [address] [place] [address] [address] [place] [address] Pt wants to schedule surgery [...] Miscellaneous Notes * Telephone Encounter - Lupe Litzy - 11/24/2023 9:13 AM EST Patient called 11/24/23. Patient wants to schedule surgery with Dr. Dawkins. documented in this encounter Plan of Treatment Upcoming Encounters Date Type Department Care Team (Latest Contact Info) Description 06/27/2025 3:30 PM EDT Hospital Encounter [facility] - Endoscopy [address] [place] [address], [address] [place] [address] Noman Mayo MD [address] [place] [address] [address] [place] [address] 06/27/2025 3:30 PM EDT - 06/27/2025 4:00 PM EDT Surgery [facility] - Endoscopy [address] [place] [address], [address] [place] [address] Noman Mayo MD [address] [place] [address] [address] [place] [address] ESOPHAGOGASTRODUODENOSCOPY DILATATION 07/15/2025 9:00 AM EDT Office Visit [facility], A Department of [address] [place] [address] Justin Bhat MD [address] [place] [address] 101, [address], [address] [place] [address] 08/19/2025 3:30 PM EDT Office Visit [facility], A Department of [address], [address] [place] [address] Pauline Christensen MD [address] [place] [address] 101, [address], [address] [place] [address] Scheduled Procedures Name Priority Associated Diagnoses Date/Ti me ESOPHAGOGASTRODUODENOSCOPY DILATATION esophageal dysphagia 06/27/2025 3:30 PM EDT documented as of this encounter Visit Diagnoses Not on filedocumented in this encounter Additional Health Concerns Assessment Noted Time PHQ-9 Depression Total Score: 0 10/23/20 23 1:26 PM EST documented as of this encounter Care Teams Revenue Stamp Clerk Relationship Specialty Start Date End Date Eliceo Gómez Jr., DO [address] [place] [address], [address] [address] PCP - General Family Medicine 12/11/19 Jenna Butler [address] Consulting Physician Behavioral Health 12/20/23 documented as of this encounter
--- OUTSIDE RECORDS SUMMARY | 2025-06-25 07:04 | XMS_ITS | Encounter Summary ---
Author Organization [facility] Address [address] [facility] [place] [address] Care Team Providers Care Anesthesia Attending Name Role Phone Eliceo Gómez DO Primary Care Provider [phone] Eliceo Gómez DO Unavailable [phone] Juan Damico DO Unavailable [phone] Encounter Details Date Type Department Care Team (Late st Contact Info) Description 07/10/2024 Abstract [facility] [place] [facility] [address] [facility] [address] [place] [address] Eliceo Gómez DO [address] [facility] [address] [place], [place] [phone] Social History Tobacco Use Types Packs/Day Years [...] Recorded Patient Health Questionnaire-2 Score 0 07/11/2024 [facility] [place] of Occupat ional Health - Occupational Stress [...] in the past 12 m [facility], were you homeless or living [...] [address] [place] [address] Chantale Sweet PA [address] [place] [address] 11/20/2025 8:30 AM EST Office Visit [facility] [address] [place] [address] Nelsy Harris APRN-ENDS DOWN CHECKER [address] [place] [address] documented as of this encounter Visit Diagnoses Not on filedocumented in this encounter Care Teams Anesthesia Attending Relationship Specialty Start Date End Date Eliceo Gómez DO [address] [place] [address] PCP - General Family Medicine 04/04/23 Eliceo Gómez DO [address] [place] [address] PCP - [facility] 05/06/23 Juan Damico DO [address] [place] [address] Referring Physician Obstetrics and Gynecology 05/20/24 documented as of this encounter
--- OUTSIDE RECORDS SUMMARY | 2025-06-25 07:04 | XMS_ITS | Encounter Summary ---
Author Organization [facility] tem Address [id number] [address] [place] [address] Care Team Providers Care Juvenile Justice Specialist Name Role Phone Dalia Morales DO, George R Primary Care Provider + Reason for Visit * Reason Onset Date Comments sooner appointment 05/20/2025 Encounter Details Date Type Department Care Team (Late st Contact Info) Description 05/20/2025 Telephone [facility], A Department of [facility] [address] [facility] [address] [place] [address] Joanna Piper sooner appointment Social History Tobacco Use Types Packs/Day Years [...] * Telephone Encounter - Joanna Piper - 05/20/2025 10:38 AM EDT Printmaker received a call from patient regarding appointment. Patient stated would like a sooner appointment if possible. Patient did not provide any further explanation other than she would just like to be seen sooner. Please advise. Contact info Mary [phone]. Thank you so much. * Telephone Encounter - Kim Acharya RN - 05/20/2025 10:38 AM EDT Patient is already on wait list and RN has been watching schedules for sooner openings. Per telephone encounter dated 05/07, patient has already advised on why she would like sooner appointment, which we have also been attempting to get records for. documented in this encounter Plan of Treatment Upcoming Encounters Date Type Department Care Team (Latest Contact Info) Description 06/27/2025 3:30 PM EDT Hospital Encounter [facility] - Endoscopy [address] [place] [address], [address] [place] [address] Noman Mayo MD 5700 [facility] 103 [place] [address] 06/27/2025 3:30 PM EDT - 06/27/2025 4:00 PM EDT Surgery [facility] - Endoscopy 57[address] [facility], [address] [place] [address] Noman Mayo MD 5700 [facility] 103 [place] [address] ESOPHAGOGASTRODUODENOSCOPY DILATATION 07/15/2025 9:00 AM EDT Office Visit [facility], A Department of [address] [place] [address] Justin Bhat MD [address] [place] [address], [facility] [address] [place] [address] 08/19/2025 3:30 PM EDT Office Visit [facility], A Department of [address], [address] [place] [address] Pauline Christensen MD [address] [place] [address] 101, [address], [address] [place] [address] Scheduled Procedures Name Priority Associated Diagnoses Date/Ti ri ESOPHAGOGASTRODUODENOSCOPY DILATATION esophageal dysphagia 06/27/2025 3:30 PM EDT documented as of this encounter Visit Diagnoses Not on filedocumented in this encounter Additional Health Concerns Assessment Noted Time PHQ-9 Depression Total Score: 0 10/23/20 23 1:26 PM EST documented as of this encounter Care Teams Juvenile Justice Specialist Relationship Specialty Start Date End Date Eliceo Gómez Jr., [address] [place] [address], [address] [address] PCP - General Family Medicine 12/11/19 Jenna Butler [address] Consulting Physician Behavioral Health 12/20/23 documented as of this encounter
--- OUTSIDE RECORDS SUMMARY | 2025-06-25 07:04 | XMS_ITS | Encounter Summary ---
Author Organization [employer] Address [id number] [address] [place] [address] Care Team Providers Care Warranty Clerk Name Role Phone Dalia Morales DO, George R Primary Care Provider + Encounter Details Date Type Department Care Team (Late st Contact Info) Description 10/18/2023 [facility]phone [facility] [address] [place] [address] Kim Acharya RN Social History [...] I got a message from Yosef from [facility] about a denial for Inspire from [facility]. It was apparently denied because the med notes don't clarify why she stopped using the CPAP and they needed further clarification. We can do [id number] once we have the information. There is a string of telephone encounters in [facility] from 03/02/23, where we had recommended CPAP, [...] documentation after call was ended. Will send [employer] message with additional information needed. * Telephone Encounter - Kim Acharya RN - 10/18/2023 11:34 AM EST Patient responded to [employer] message stating that Dr. Todd Noe had [...] will draft appeal letter and fax to [employer] once completed. * Telephone Encounter - Kim Acharya RN - 10/18/2023 11:34 AM EST Appeal letter written and faxed to [employer] and appeals. Will wait response [...] Apnea Device. She can be reached at [phone] * Telephone Encounter - Kim Acharya RN - 10/18/2023 11:34 AM EST Called to check status of appeal but had to leave VM with department asking for call back regarding appeal. * Telephone Encounter - Kim Acharya RN - 10/18/2023 11:34 AM EST Received transferred call from Tracie at [employer]. She stated she does not see RN's appeal that was sent for Inspire on 10/19. RN verified fax # that was on letter that RN sent letter to. She stated she has a fax # to be sent that is [phone]. RN stated will try to refax letter to new fax #. She also provided secondary fax # of [phone]. RN faxed appeal to both #s listed above. Sent patient message via [employer] with update. Received fax confirmation on both #s * Telephone Encounter - Kim Acharya RN - 10/18/2023 11:34 AM EST RN received fax from [employer] stating that they received appeal for Inspire but it needs to be sent via mail. RN sent all appeal information to [employer] as listed on the fax and placed in outgoing mail. * Telephone Encounter - Kim Acharya RN - 10/18/2023 11:34 AM EST Received letter in mail from [employer] stating that it appears this is a post appeal dispute and needs to be sent to correct address . RN marked on letter that service has not been completed until approved so this is a pre service appeal and that was the address that appeal was sent to. Also marked that this needs to marked as urgent since [employer] has provided misinformation to our office on many occasions and we need to not delay patient care any further. * Telephone Encounter - Kim Acharya RN - 10/18/2023 11:34 AM EST RN had email from [employer] stating approval came through for device after faxing to # provided by rep for appeals. Letter scanned in under media. RN informed patient via [employer]. documented in this encounter Plan of Treatment Upcoming Encounters Date Type Department Care Team (Latest Contact Info) Description 06/27/2025 3:30 PM EDT Hospital Encounter [facility] - Endoscopy [address] [facility], [address] [place] [address] Noman Mayo MD 5700 [facility], [facility] 103 [place] [address] 06/27/2025 3:30 PM EDT - 06/27/2025 4:00 PM EDT Surgery [facility] - Endoscopy [address] [facility], [address] [place] [address] Noman Mayo MD 5700 [facility], [facility] 103 [place] [address] ESOPHAGOGASTRODUODENOSCOPY DILATATION 07/15/2025 9:00 AM EDT Office Visit [facility] Neurology, A Department of [address], [address] [place] [address] Justin Bhat MD [address] [place] [address] 101, [address], [address] [place] [address] 08/19/2025 3:30 PM EDT Office Visit [facility]rology, A Department of [address], [address] [place] [address] Pauline Christensen MD [address] [place] [address] 101, [address], [address] [place] [address] Scheduled Procedures Name Priority Associated Diagnoses Date/Ti me ESOPHAGOGASTRODUODENOSCOPY DILATATION esophageal dysphagia 06/27/2025 3:30 PM EDT documented as of this encounter Visit Diagnoses Not on filedocumented in this encounter Additional Health Concerns Assessment Noted Time PHQ-9 Depression Total Score: 0 01/27/20 23 1:28 PM EDT documented as of this encounter Care Teams Warranty Clerk Relationship Specialty Start Date End Date Eliceo Gómez Jr., [address] [place] [address], [address] [id number] PCP - General Family Medicine 12/11/19 Jenan Butler [address] Consulting Physician Behavioral Health 12/20/23 documented as of this encounter
--- OUTSIDE RECORDS SUMMARY | 2025-06-25 07:04 | XMS_ITS | Encounter Summary ---
Author Organization [facility] Address [address] [facility] [place] [address] Care Team Providers Care Payroll Administrative Assistant Name Role Phone Eliceo Gómez DO Primary Care Provider Eliceo Gómez DO Unavailable [phone] Beata Hernandez Unavailable Juan Damico DO Unavailable [phone] Encounter Details Date Type Department Care Team (Late st Contact Info) Description 01/24/2024 Abstract [facility] [place] [facility] [address] [facility] [address] [place] [address] Eliceo Gómez DO [address] [facility] [address] [place] [address] Social History Tobacco Use Types Packs/Day Years [...] Recorded Patient Health Questionnaire-2 Score 0 10/03/2023 [facility] of Occupat ional Health - [...] [address] [place] [address] Chantale Sweet PA [address] [place] [address] 11/20/2025 8:30 AM EST Office Visit [facility] [address] [place] [address] Nelsy Harris APRN-BELT AND L[employer] ASSEMBLY SUPERVISOR [address] [place] [address] documented as of this encounter Visit Diagnoses Not on filedocumented in this encounter Care Teams Payroll Administrative Assistant Relationship Specialty Start Date End Date Eliceo Gómez DO [address] [place] [address] PCP - General Family Medicine 04/04/23 Eliceo Gómez DO [address] [place] [address] PCP - [facility] 05/06/23 Beata Hernandez PA [address] [place] [address] Dietitian Nutrition 08/08/23 05/16/24 Juan Damico DO [address] [place] [address] Referring Physician Obstetrics and Gynecology 05/20/24 documented as of this encounter
--- OUTSIDE RECORDS SUMMARY | 2025-06-25 07:04 | XMS_ITS | Encounter Summary ---
Author Organization [facility] Address [address] [facility] [place] [address] Care Team Providers Care Vessel Master Name Role Phone Eliceo Gómez DO Primary Care Provider [phone] Eliceo Gómez DO Unavailable [phone] Juan Damico DO Unavailable [phone] Encounter Details Date Type Department Care Team (Late st Contact Info) Description 05/27/2024 Abstract [facility] [place] [facility] [address] [facility] [address] [place] [address] Eliceo Gómez DO [address] [facility] [address] [place], [place] [address] Social History Tobacco Use Types Packs/Day Years [...] attend chur ch or latter-day services? Never 05/01/2024 Do you [...] Recorded Patient Health Questionnaire-2 Score 0 05/14/2024 [facility] [place] of Occupat ional Health - Occupational Stress [...] Dermatology [address] [place] [address] Chantale Sweet PA [address] [place] [address] 11/20/2025 8:30 AM EST Office Visit [facility] [address] [place] [address] Nelsy Harris, FOIL STAMP OPERATOR-REAL PROPERTY EVALUATOR [address] [place] [address] documented as of this encounter Visit Diagnoses Not on filedocumented in this encounter Care Teams Vessel Master Relationship Specialty Start Date End Date Eliceo Gómez DO [address] [place] [address] PCP - General Family Medicine 04/04/23 Eliceo Gómez DO [address] [place] [address] PCP - [facility] 05/06/23 Juan Damico DO [address] [place] [address] Referring Physician Obstetrics and Gynecology 05/20/24 documented as of this encounter
--- OUTSIDE RECORDS SUMMARY | 2025-06-25 07:04 | XMS_ITS | Encounter Summary ---
Author Organization [facility] Address [address] [place] [address] Care Team Providers Care Studio Assistant Name Role Phone Eliceo Gómez DO Primary Care Provider [phone] Eliceo Gómez DO Unavailable [phone] Juan Damico DO Unavailable [phone] Encounter Details Date Type Department Care Team [...] Recorded Patient Health Questionnaire-2 Score 0 06/12/2024 [facility] of Occupat ional Health - [...] the past [address] [facility], were you homeless or living [...] Dermatology [address] [place] [address] Chantale Sweet PA [address] [place] [address] 11/20/2025 8:30 AM EST Office Visit [facility] [place] [facility] [address] [place] [address] Nelsy Harris, BARBACK-STUMP SHOOTER [address] [place] [address] documented as of this encounter Procedures Procedure Name Priority Date/Time Associated Diagnosis Comments XR FOOT RT MIN 3V 06/22/2024 12: 28 PM EDT documented in this encounter Results * XR FOOT RT MIN 3V (06/22/2024 12:28 PM EDT) Anatomical Region Laterality Modality Other 06/22/2024 12:2 8 PM EDT Narrative 06/22/2024 12:30 PM EDT [address] [address] XRay Report Signed Patient: MARY FUENTES MR#: [id number] : 1970 Acct:[id number] Age/Sex: 54 / F ADM Date: 06/19/24 Loc: EC Attending Dr: Sade Felix D.P.M. Ordering Physician: Sade Felix D.P.M. Date of Service: 06/19/24 Procedure(s): XR foot RT min 3V Accession Number(s): [id number] cc: Sade Felix D.P.M.; Isatu GÓMEZ [address] [address] Patient Name: MARY FUENTES MRN: [facility]:[id number] date: 1970 Sex: F Assigned Patient [facility]: [facility] Accession/Order Number: [id number] Exam Date: 06/19/2024 13:30 Report Date: 06/22/2024 [...] Signed By: 06/22/24 1230 DD/ 1228 TD/TT: Supervisor Quilting: Procedure Note Radiology, Radiologist, MD - 06/22/2024 [place] [address] XRay Report Signed Patient: MARY FUENTES DMR#: [id number] : 1970Acct:[id number] Age/Sex: 54 / FADM Date: 06/19/24 Loc: EC Attending Dr: Sade Felix D.P.M. Ordering Physician: Sade Felix D.P.M. Date of Service: 06/19/24 Procedure(s): XR foot RT min 3V Accession Number(s): [id number] cc: Sade Felix D.P.M.; Isatu GÓMEZ [facility] [place] [id number] Patient Name: MARY FUENTES MRN: [facility]:[id number] date: 1970 Sex: F Assigned Patient Location: Current Patient Location: [facility] Accession/Order Number: [id number] Exam Date: 06/19/2024 13:30 Report Date: 06/22/2024 [...] M.D. Signed By:06/22/24 1230 DD/ 1228 TD/TT: Supervisor Quilting: us Generic External Data Provider [facility] Final Result documented in this encounter Visit Diagnoses Not on filedocumented in this encounter Care Teams Studio Assistant Relationship Specialty Start Date End Date Eliceo Gómez DO [address] [place] [address] PCP - General Family Medicine 04/04/23 Eliceo Gómez DO [address] [place] [address] PCP - [facility] 05/06/23 Juan Damico DO [address] [place] [address] Referring Physician Obstetrics and Gynecology 05/20/24 documented as of this encounter
--- OUTSIDE RECORDS SUMMARY | 2025-06-25 07:04 | XMS_ITS | Encounter Summary ---
Author Organization [facility] Address [address] [facility] [place] [address] Care Team Providers Care Adjustment Examiner Name Role Phone Eliceo Gómez DO Primary Care Provider [phone] Eliceo Gómez DO Unavailable [phone] Juan Damico DO Unavailable [phone] Encounter Details Date Type Department Care Team (Late st Contact Info) Description 06/24/2024 Abstract [facility] [place] [facility] [address] [facility] [address] [place] [address] Eliceo Gómez DO [address] [facility] [address] [place], [place] [address] Social History Tobacco Use Types Packs/Day Years [...] often do you attend chur ch or congregation services? Never 05/01/2024 Do you [...] Recorded Patient Health Questionnaire-2 Score 0 06/12/2024 [facility] [place] of Occupat ional Health - Occupational Stress [...] [address] [place] [address] Chantale Sweet PA [address] [place] [address] 11/20/2025 8:30 AM EST Office Visit [facility] [address] [place] [address] Nelsy Harris, SCHEDULING ASSISTANT-UPSETTER SETTER UP [address] [place] [address] documented as of this encounter Visit Diagnoses Not on filedocumented in this encounter Care Teams Adjustment Examiner Relationship Specialty Start Date End Date Eliceo Gómez DO [address] [place] [address] PCP - General Family Medicine 04/04/23 Eliceo Gómez DO [address] [place] [address] PCP - [facility] 05/06/23 Juan Damico DO [address] [place] [address] Referring Physician Obstetrics and Gynecology 05/20/24 documented as of this encounter
--- OUTSIDE RECORDS SUMMARY | 2025-06-25 07:04 | XMS_ITS | Encounter Summary ---
Author Organization [facility] Address [id number] [address] [place] [address] Care Team Providers Care Accounting Systems Manager Name Role Phone Dalia Morales DO, George R Primary Care Provider + Reason for Visit * Reason Onset Date Comments Bonita BROOKS 01/30/2023 Encounter Details Date Type Department Care Team (Late st Contact Info) Description 01/30/2023 Telephone [facility] [address] [place] [address] Kim Acharya, RN [facility] [place] Social History Tobacco Use Types Packs/Day [...] - 01/30/2023 8:18 AM EDT [facility] [email or web address] faxed to plan , waiting a response documented in this encounter Plan of Treatment Upcoming Encounters Date Type Department Care Team (Latest Contact Info) Description 06/27/2025 3:30 PM EDT Hospital Encounter [facility] - Endoscopy [address] [facility] [place] [address] Noman Mayo MD [address] [facility] [place] [address] 06/27/2025 3:30 PM EDT - 06/27/2025 4:00 PM EDT Surgery [facility] - Endoscopy [address] [facility] [place] [address] Noman Mayo MD [address] [facility] [place] [address] ESOPHAGOGASTRODUODENOSCOPY DILATATION 07/15/2025 9:00 AM EDT Office Visit [facility] A Department of [address] [place] [address] Justin Bhat MD [address] [place] [address] [address] [place] [address] 08/19/2025 3:30 PM EDT Office Visit [facility] Department of [address] [place] [address] Pauline Christensen MD [address] [place] [address], [facility] [address] [place] [address] Scheduled Procedures Name Priority Associated Diagnoses Date/Ti me ESOPHAGOGASTRODUODENOSCOPY DILATATION esophageal dysphagia 06/27/2025 3:30 PM EDT documented as of this encounter Visit Diagnoses Not on filedocumented in this encounter Additional Health Concerns Assessment Noted Time PHQ-9 Depression Total Score: 0 01/27/20 23 1:28 PM EDT documented as of this encounter Care Teams Accounting Systems Manager Relationship Specialty Start Date End Date Eliceo Gómez Jr., [address] [facility] [address] PCP - General Family Medicine 12/11/19 Jenna Butler [address] [place] [address] Consulting Physician Behavioral Health 12/20/23 documented as of this encounter
--- OUTSIDE RECORDS SUMMARY | 2025-06-25 07:04 | XMS_ITS | Encounter Summary ---
Author Organization [facility] Address [address] [place] [address] Care Team Providers Care Paraeducator Name Role Phone Eliceo Gómez DO Primary Care Provider [phone] Eliceo Gómez DO Unavailable [phone] Juan Damico DO Unavailable [phone] Encounter Details Date Type Department Care Team [...] [address] [place] [address] Chantale Sweet PA [address] [place] [address] 11/20/2025 8:30 AM EST Office Visit [facility] [address] [place] [address] Nelsy Harris APRN-PRINCIPAL PLANNER [address] [place] [address] documented as of this encounter Procedures Procedure Name Priority Date/Time Associated Diagnosis Comments XR FOOT RT MIN 3V 07/10/2024 6:5 9 AM EDT documented in this encounter Results * XR FOOT RT MIN 3V (07/10/2024 6:59 AM EDT) Anatomical Region Laterality Modality Other 07/10/2024 6:59 AM EDT Narrative 07/10/2024 7:02 AM EDT [address] [address] XRay Report Signed Patient: MARY FUENTES MR#: [id number] : 1970 Acct:[id number] Age/Sex: 54 / F ADM Date: 07/09/24 Loc: EC Attending Dr: Sade Felix D.P.M. Ordering Physician: Sade Felix D.P.M. Date of Service: 07/09/24 Procedure(s): XR foot RT min 3V Accession Number(s): [id number] cc: Sade Felix D.P.M.; Isatu GÓMEZ [address] [address] Patient Name: MARY FUENTES MRN: [facility]:[id number] date: 1970 Sex: F Assigned Patient Location: Current Patient Location: Accession/Order Number: [id number] Exam Date: 07/09/2024 10:00 Report Date: 07/10/2024 [...] Dictated By: Adam Oliveros M.D. Signed By: 07/10/24 0702 DD/ 0659 TD/TT: Home Agent: Procedure Note Radiology, Radiologist, MD - 07/10/2024 [place] [address] XRay Report Signed Patient: MARY FUENTES DMR#: [id number] : 1970Acct:[id number] Age/Sex: 54 / FADM Date: 07/09/24 Loc: EC Attending Dr: Sade Felix D.P.M. Ordering Physician: Sade Felix D.P.M. Date of Service: 07/09/24 Procedure(s): XR foot RT min 3V Accession Number(s): [id number] cc: Sade Felix D.P.M.; Isatu GÓMEZ The [place] [address] Patient Name: MARY FUENTES MRN: [id number] date: 1970 Sex: F Assigned Patient Location: Current Patient Location: Accession/Order Number: [id number] Exam Date: 07/09/2024 10:00 Report Date: 07/10/2024 [...] M.D. Signed By:07/10/24 0702 DD/ 0659 TD/TT: Home Agent: Generic External Data Provider [facility] Final Result documented in this encounter Visit Diagnoses Not on filedocumented in this encounter Care Teams Paraeducator Relationship Specialty Start Date End Date Eliceo Gómez DO [address] [place] [address] PCP - General Family Medicine 04/04/23 Eliceo Gómez DO [address] [place] [address] PCP - [facility] 05/06/23 Juan Damico DO [address] [place] [address] Referring Physician Obstetrics and Gynecology 05/20/24 documented as of this encounter
--- OUTSIDE RECORDS SUMMARY | 2025-06-25 07:04 | XMS_ITS ---
Author Organization [facility] Address [address] [place] [address] Care Team Providers Care Bunch Trimmer Mold Name Role Phone Eliceo Gómez DO Primary Care Provider [phone] Juan Damico DO Unavailable [phone] Active Problems Problem Noted Date Diagnosed Date [...] deficiency 04/04/2023 Arthritis of left foot 01/06/2023 CHUCKIE (obstructive sleep apnea) 11/21/2022 Overview (04/06/2023): [...]
--- OUTSIDE RECORDS SUMMARY | 2025-06-25 07:05 | XMS_ITS | Encounter Summary ---
Author Organization [facility] Address [address] [facility] [place] [address] Care Team Providers Care Automotive Paint Technician Name Role Phone Eliceo Gómez DO Primary Care Provider Eliceo Gómez DO Unavailable [phone] Beata Hernandez Unavailable Juan Damico DO Unavailable [phone] Encounter Details Date Type Department Care Team (Late st Contact Info) Description 03/07/2024 Abstract [facility] [place] [facility] [address] [facility] [address] [place] [address] Eliceo Gómez DO [address] [facility] [address] [place] [address] Social History Tobacco Use Types Packs/Day Years [...] you attend chur or orthodox services? Never 04/14/2023 Do you belong [...] 10/03/2023 [facility] of Occupat ional Health - [...] [address] [place] [address] 11/20/2025 8:30 AM EST Office Visit [facility] [address] [place] [address] Nelsy Harris APRN-DOCUMENTATION SPECIALIST [address] [place] [address] documented as of this encounter Visit Diagnoses Not on filedocumented in this encounter Care Teams Automotive Paint Technician Relationship Specialty Start Date End Date Eliceo Gómez DO [address] [place] [address] PCP - General Family Medicine 04/04/23 Eliceo Gómez DO [address] [place] [address] PCP - [facility] 05/06/23 Beata Hernandez PA [address] [place] [address] Dietitian Nutrition 08/08/23 05/16/24 Juan Damico DO [address] [place] [address] Referring Physician Obstetrics and Gynecology 05/20/24 documented as of this encounter
--- OUTSIDE RECORDS SUMMARY | 2025-06-25 07:05 | XMS_ITS | Patient Health Record ---
Author Organization [facility] [place] Address [address] [place] [address] Care Team Providers Care Winch Derrick Operator Name Role Phone Rigo Grant DO Primary Care Provider Sade Ahuja Unavailable [phone] Allergies No Known Allergies Results Component Value Reference Range Notes XR Foot RT (3 views) * Reviewed date:11/04/2024 01:26:00 PM Interpretation: Performing Lab: Notes/Report: XR Foot RT (3 views) * Reviewed date:11/04/2024 02:42:58 PM Interpretation: Performing Lab: Notes/Report: XR foot RT min 3V (Not yet r eviewed by provider) Interpretation: Performing Lab: Notes/Report: Source Facility: [place] [address] XRay Report Signed Patient: MARY FUENTES MR#: [id number] : 1970 Acct:[id number] Age/Sex: 54 / F ADM Date: 01/03/25 Loc: EC Attending Dr: Sade Felix D.P.M. Ordering Physician: Sade Felix D.P.M. Date of Service: 01/03/25 Procedure(s): XR foot RT min 3V Accession Number(s): [id number] cc: Sade Felix D.P.M.; Isatu CASTRO [place] [address] Patient Name: MARY FUENTES MRN: [id number] date: 1970 Sex: F Assigned Patient Location: Current Patient Location: Accession/Order Number: [id number] Exam Date: 01/03/2025 12:17 Report Date: 01/03/2025 [...] Makenna Pathak M.D.01/03/2025 12:21 PM Dictation Location: [place] [address] Electronically authenticated by: [id number] Y Date: 01/03/2025 12:21 Dictated By: Makenna Pathak M.D. Signed By: 01/03/25 1223 DD/ 1221 TD/TT: Basketball Referee: [place] [address] XRay Report Signed Patient: CRISTY FUENTES MR#: [id number] : 1970 Acct:[id number] Age/Sex: 54 / F ADM Date: 01/03/25 Loc: EC Attending Dr: Sade Felix D.P.M. Ordering Physician: Sade Felix D.P.M. Date of Service: 01/03/25 Procedure(s): XR foot RT min 3V Accession Number(s): [id number] cc: Sade Felix D.P.M.; Isatu CASTRO [place] [address] Patient Name: MARY FUENTES MRN: [facility]:[id number] date: 1970 Sex: F Assigned Patient Location: Current Patient Location: Accession/Order Numb er: [id number] Exam Date: 01/03/2025 12:17 Report Date: 01/03/2025 [...] Makenna Pathak M.D.01/03/2025 12:21 PM Dictation Location: [place] [address] Electronically authe nticated by: [id number] Y Date: 01/03/2025 12:21 Dictated By: Makenna Pathak M.D. Signed By: 01/03/25 1223 DD/ 1221 TD/TT: Basketball Referee: XR foot RT min 3V (Not yet r eviewed by provider) Interpretation: Performing Lab: Notes/Report: Source Facility: [place] [address] XRay Report Signed Patient: MARY FUENTES MR#: [id number] : 1970 Acct:[id number] Age/Sex: 54 / F ADM Date: 10/01/24 Loc: RAD Attending Dr: Sade Felix D.P.M. Ordering Physician: Sade Felix D.P.M. Date of Service: 10/01/24 Procedure(s): XR foot RT min 3V Accession Number(s): [id number] cc: Sade Felix D.P.M.; Isatu CASTRO [address] [id number] Patient Name: MARY FUENTES MRN: [id number] date: 1970 Sex: F Assigned Patient Location: [facility] Current Patient Location: [facility] Accession/Order Number: [id number] Exam Date: 10/01/2024 07:45 Report Date: 10/03/2024 [...] M.D. Signed By: 10/03/24927 DD/ 4 TD/TT: Basketball Referee: [place] [address] XRay Report Signed Patient: CRISTY FUENTES MR#: [id number] : 1970 Acct:[id number] Age/Sex: 54 / F ADM Date: 10/01/24 Loc: [facility] Attending Dr: Sade Felix D.P.M. Ordering Physician: Sade Felix D.P.M. Date of Service: 10/01/24 Procedure(s): XR foot RT min 3V Accession Number(s): [id number] cc: Sade Felix D.P.M.; Isatu CASTRO [place] [id number] Patient Name: MARY FUENTES MRN: [id number] date: 1970 Sex: F Assigned Patient Location: RAD Current Patient Location: RAD Accession/Order Numb er: [id number] Exam Date: 07:45 Report Date: 10/03/2024 09:25 [...] M.D. Signed By: 10/03/24927 DD/ 4 TD/TT: Basketball Referee: Reason For Referral Reason Compression stocking s Diagnosis 1 Right foot pain (M79 .671) Referral Organization [facility] (PODIATRY) Referring Provider First Name Sade Referring [...] Problem Status W/U Status Risk Notes Problem 30236331 Essential (primary) hypertension (I10) Active confirmed Problem 379869407 Gastro-esophagea l reflux disease without esophagitis (K21.9) Active confirmed Problem 0897653479419241 Primary osteoarthritis, right ankle and foot (M19.071) Active confirmed Problem 202481091387246 Peroneal tendinitis, right leg (M76.71) Active confirmed Problem 6726350755859105 Posterior tibia l tendinitis, left leg (M76.822) Active confirmed Problem 746120622 Unspecified subluxation of right foot, sequela (S93.301S) Active confirmed Problem Presence of righ t artificial ankle joint (Z96.661) Active confirmed Problem 075360001 Presence of functional implant, unspecified (Z96.9) Active confirmed Problem Gastroesophageal reflux disease (074468277) GERD (gastroesophageal reflux disease) (K21.9) Active confirmed Problem Sleep apnea (46389152) Sleep apnea (G47.30) Active confirmed Problem Bipolar disorder (43084502) Bipolar disorder (F31.9) Active confirmed Problem Generalized anxiety disorder (97182542) JOLEEN (generalized anxiety disorder) (F41.1) Active confirmed Problem Panic disorder (645131041) Panic attacks (F41.0) Active confirmed Problem Iron deficiency anemia (58414563) Anemia, iron deficiency (D50.9) Active confirmed Problem Osteoarthritis of right foot (4133169782457075) Osteoarthritis of right foot (M19.071) Active confirmed Problem Primary osteoarthritis (252120292) Primary osteoarthritis (M19.91) Active confirmed Problem Localized, primary osteoarthritis of the ankle and/or foot (313442972) Osteoarthritis of ankle, right (M19.071) Active confirmed Problem Essential hypertension (51851277) BP (high blood pressure) (I10) Active confirmed Problem 2368460714362397 Arthritis of le ft foot (M19.072) Active confirmed Problem 1649366599562838 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 (M76.821) Active confirmed Vital Signs Heart Rate 66 /min 01/03/2025 Temperature 97 degrees Fahrenheit 01/03/2025 Oximetry 98 % 01/03/2025 Height 64 in 01/03/2025 Weight 174 lbs 01/03/2025 BMI 29.86 kg/m2 01/03/2025 Encounters Encounter Location Date Provider Diagnosis [facility] ([facility]) [address] [place] [address] [place] [address] 12/10/2024 Sade Felix Pain due to bone fixation device, initial encounter T84.84XA ; Posterior tibial tendon dysfunction (PTTD) of right lower extremity M76.821 and Right foot pain M79.671 [facility] ([facility]) [address] [place] [address] [place] [address] 01/03/2025 Sade Felix Posterior tibial tendon dysfunction (PTTD) of right lower extremity M76.821 ; Primary osteoarthritis, right ankle and foot M19.071 and Right foot pain M79.671 [facility] ([facility]OD[facility]) [address] [place], [place] [address] [address] 07/09/2024 Sade Felix Osteoarthritis of right foot M19.071 and Unspecified subluxation of right foot, sequela S93.301S [facility] (PODIATRY) [address] [place] [address] [place] [address] 07/30/2024 Sade Felix Right foot pain M79.671 and Pain due to bone fixation device, initial encounter T84.84XA [facility] ([facility]) [address] [place] [address] [place] [address] 10/01/2024 Sade Felix Pain due to bone fixation device, initial encounter T84.84XA ; Posterior tibial tendon dysfunction (PTTD) of right lower extremity M76.821 ; Osteoarthritis of right foot M19.071 and Right foot pain M79.671 [facility] ([facility]) [address] [place] [address] [place] [address] 01/03/2025 Sade Felix Assessments Encounter Date Diagnosis (ICD Code) Assessment Notes Treatment Notes Treatment Clinical Notes Section Notes 07/09/2024 Osteoarthritis of right foot (ICD-10 - [...] well as stretching exercises. Finally I prescribed [place] 5/325 1 by mouth every 6 hours [...] Insured Coverage Start Date Coverage End Date [facility] PRIMARY MEDICARE [address] [place] [address] [id number] [id number] Mary Fuentes Self - patient is the insured [place] 2ND INS [address] [place] [id number] Mary Fuentes Self - patient is the insured 4 MEDIC[place] [address] [address] [place] [address] [id number] Mary Fuentes Self - patient is the [...] Osteotomy, Cotton Osteotomy, 10/17/2022 (cont) Posterior Tibial Ten don epair/Augmentation, Gastrocnemius Rt Cotton Midfoot, Rt modified [...]
--- OUTSIDE RECORDS SUMMARY | 2025-06-25 07:05 | XMS_ITS | Encounter Summary ---
Author Organization [facility] Address [address] [facility] [place] [address] Care Team Providers Care Boom Conveyor Operator Name Role Phone Eliceo Gómez DO Primary Care Provider [phone] Eliceo Gómez DO Unavailable [phone] Juan Damico DO Unavailable [phone] Encounter Details Date Type Department Care Team (Late st Contact Info) Description 05/17/2024 Abstract [facility] [place] [facility] [address] [facility] [address] [place] [phone] Eliceo Gómez DO [address] [facility] [address] [place], [place] [id number] Social History Tobacco Use Types Packs/Day Years [...] often do you attend chur ch or mandaeism services? Never 05/01/2024 Do you belong to [...] 0 05/14/2024 [facility] [place] [facility] Occup[facility] - Occupational Stress [...] any time in the past 12 m [facility], were you homeless or living [...] Dermatology [address] [place] [address] Chantale Sweet PA [address] [place] [phone] 11/20/2025 8:30 AM EST Office Visit [facility] [address] [place] [phone] Nelsy Harris, [employer] [address] [place] [address] documented as of this encounter Visit Diagnoses Not on filedocumented in this encounter Care Teams Boom Conveyor Operator Relationship Specialty Start Date End Date Eliceo Gómez DO [address] [place] [address] PCP - General Family Medicine 04/04/23 Eliceo Gómez DO [address] [place] [address] PCP - [facility] 05/06/23 Juan Damico DO [address] [place] [address] Referring Physician Obstetrics and Gynecology 05/20/24 documented as of this encounter
--- OUTSIDE RECORDS SUMMARY | 2025-06-25 07:05 | XMS_ITS | CCD ---
Author Organization [facility] Care Team Providers Care Bead Wire Taper Name Role Phone PARISH GÓMEZ Primary Care Unavailable Eliceo Gómez Jr. Primary Care Provider Gwendolyn Stroud Unavailable Maximus OROSCO, Gwendolyn Unavailable Beto Snyder Unavailable Tita Daugherty Unavailable Erica Kingston Unavailable Eliceo Gómez Unavailable Unavailable Unavailable Allison Arita Unavailable Eliceo Gómez Jr. Primary Care Provider Maximus OROSCO Gwendolyn Unavailable Eliceo Gómez Unavailable DO Shannon Gómez Primary Care Provider MD Beto Snyder Attending Provider [phone] Eliceo Gómez Jr. Primary Care Provider Maximus [...] Unavailable KAREEM, NIECY Admitting Unavailable KAFTAN, DR Iastu LUGO Primary Care Unavailable ZIEBER, DR ZAIDA [...] ELIAS ., DR ELDER Rios Consulting Unavailable LILES[place]IL[place], DR NICKI Gale Consulting Unavailable SADE FELIX Consulting Unavailable EDUARDO ., NANCY LAMA Consulting Unavailable GEMBUS, DAWNA Consulting Unavailable HIGHLANDER, SADE Kenny Consulting Unavailable HIGHLANDER, SADE Kenny Attending Unavailable HIGHLROBERTA, SADE Kenny Admitting Unavailable KAFTAN, DR Isatu [...] Consulting Unavailable DO Anibal Valle Emergency Provider [phone] Unavailable Unavailable Unavailable Primary Care Provider UnavailLEV Aaron Referring Unavailable LEV RITTER Attending Unavailable LEX SALMON Attending Unavailable Héctor, Dr. Dipti Fam Attending Unava arben Gómez Jr, Dr. Eliceo Lugo Primary Care Jessica vailarosario Anaya, Dr. Dipti Fam Attending Unava ilaraceli Gómez Jr, Dr. Eliceo Lugo Primary Care Jessica vailarosario Anaya, Dr. Dipti Fam Referring Unava ilaraceli Gómez Jr, Dr. Eliceo Luog Primary Care Jessica vailable Héctor, Dr. Dipti Fam Attending Unava ilaraceli Gómez Jr., Eliceo LOAIZA Primary Care Provi pa PAULINE CHRISTENSEN Attending Unavailable ELICEO GÓMEZ JR Referring Unavailable ELICEO GÓMEZ JR Primary Care Unavailable DO Shannon Gómez Primary Care Provider [phone] DO Tez Vazquez Attending Provider [phone] PAM WANG Referring Unavailable ELICEO GÓMEZ JR Primary Care Unavail able Dalia Morales, Eliceo LOAIZA Primary Care Provi pa ELICEO GÓMEZ JR Primary Care Unavail able PAM WANG Admitting Unavailable WANG, PAM Attending Unavailable WANG, PAM Referring Unavailable DALIA JENKINSELICEO Primary Care Unavail able JAIRON LAI Attending Unavailable WANG, PAM Attending Unavailable STEPHONJEROMEAN , ELICEO LUGO Primary Care Unavail able KAJEROMEAN , ELICEO LUGO Primary Care Unavail able NELSY CHÁVEZ Attending Unavailable FLOWER LOPEZ Attending Unavailable DALIA JENKINS, ELICEO LUGO Primary Care Unavail able STEPHONJEROMEAN , ELICEO LUGO Primary Care Unavail able KAJEROMEAN , ELICEO LUGO Primary Care Unavail able KAJEROMEAN , ELICEO LUGO Primary Care Unavail able WANG, PAM Attending Unavailable KAJEROMEAN JR, ELICEO LUGO Primary Care Unavail able WANG, PAM Attending Unavailable WANG, PAM Referring Unavailable STEPHONLEIGHA JENKINS, ELICEO LUGO Primary Care Unavail able DORIS ARIAS Attending Unavailable Shannon Gómez DO Primary Care Provider DO Shannon Gómez Primary Care Provider [phone] FADUMO Felix Attending Provider Unavailable Primary Care Provider Unavailjan e Eliceo Gómez DO Primary Care Provider Eliceo Gómez DO Unavailable [phone] Dipti Acevedo DO Unavailable Grant TRACY-CMonica Attending Provider [phone] Shannon Gómez DO Primary Care Provider [phone] Anibal Medrano DO Attending Provider [phone] Dipti Acevedo DO Attending Provider Brisa BENSON, Padmaja Attending Provider Dalia Morales DO, George R Primary Care Provider Everett Valdez MD Attending Provider Shannon GÓMEZ Primary Care Unavailable MERISSA DELAROSA Referring Unavailable SELF, SELF Referring Unavailable Shannon GÓMEZ Primary Care Unavailable Shannon GÓMEZ Primary Care Unavailable RADHA CARDENAS Attending Unavailable Shannon GÓMEZ Referring Unavailable Shannon GÓMEZ Primary Care Unavailable MERISSA DELAROSA Attending Unavailable Shannon GÓMEZ Referring Unavailable Shannon GÓMEZ Primary Care Unavailable KAFTAN, GReno LUGO Referring Unavailable LI, NA Referring Unavailable KAFTAN, GReno LUGO Primary Care Unavailable MERISSA DELAROSA Attending Unavailable LI, NA Referring Unavailable KAFTAN, GReno LUGO Primary Care Unavailable RADHA CARDENAS Attending Unavailable RADHA CARDENAS Attending Unavailable KAFTAN, GReno LUGO Primary Care Unavailable KAFTAN, GReno LUGO Referring Unavailable KAFTAN, GReno LUGO Referring Unavailable RADHA CARDENAS Attending Unavailable KAFTAN, GReno LUGO Primary Care Unavailable LI, NA Referring Unavailable KAFTAN, GReno LUGO Primary Care Unavailable MILAGROS FRANCO Attending Unavailab le Kaftan DO Eliceo R Unavailable CHRISTENSEN, AJAZ Referring Unavailable CHRISTENSEN, AJAZ Referring Unavailable CHRISTENSEN, AJAZ Attending Unavailable CHRISTENSEN, AJAZ Attending Unavailable CHRISTENSEN, SANGITAAZ Attending Unavailable KaShannon vilchis DO Primary Care Provider Anibal Medrano DO Attending Provider Everett Valdez MD Attending Provider Shannon Gómez DO Primary Care Provider Grant TRACY-CMonica Attending Provider Everett Valdez Admitting Unavailable Everett Valdez Attending Unavailable Shannon Gómez Primary Care Unavailable Monica Burns Admitting Unavailable Monica Burns Attending Unavailable Shannon Gómez Primary Care Unavailable Shannon Gómez Primary Care Unavailable Dipti Acevedo Admitting Unavailable Dipti Acevedo Attending Unavailable Sade Felix Attending Unavailable Sade Felix Admitting Unavailable Li, Na Attending Unavailable Shannon Gómez Primary Care Unavailable Li, Na Admitting Unavailable Shannon Gómez Primary Care Unavailable Bialaski, Anibal N Admitting Unavailable Mitchell, Anibal N Attending Unavailable Monica Burns Admitting Unavailable Monica Burns Attending Unavailable Shannon Gómez Primary Care Unavailable Dalia, GReno Lugo Primary Care Unavailable Bialdailyi, Anibal N Admitting Unavailable Mitchell, Anibal N Attending Unavailable Sade Felix Attending Unavailable Shannon Gómez Primary Care Unavailable Sade Felix Admitting Unavailable Shannon Gómez Primary Care Unavailable Anibal Medrano Admitting Unavailable Anibal Medrano Attending Unavailable Everett Valdez Admitting Unavailable Everett Valdez Attending Unavailable Shannon Gómez Primary Care Unavailable Shannon Gómez DO Primary Care Provider Everett Valdez MD Attending Provider Salma Galeas DO Attending Provider [facility], [facility] Referring Unavailable KAFTAN JR, ELICEO R Primary Care Unavailable CHRISTENSEN, AJAZ A Referring Unavailable KAFTAN JR, ELICEO R Primary Care Unavailable CHRISTENSEN, AJAZ A Referring Unavailable KAFTAN JR, ELICEO R Primary Care Unavailable Gijojoitis , Andrius Kaelyn Attending Unavailable Giedraitis , Andrius Vytautalvin Attending Unavailable Giedraitis , Andrius Vytautas Attending Unavailable Giedraitis , Andrius Vytautas Attending Unavailable Giedraitis , Andrius Vytautas Attending Unavailable Giedraitis , Andrius Vytautas Attending Unavailable Giedraitis , Andrius Vytautas Attending Unavailable Giedraitis , Andrius Vytautas Attending Unavailable Giedraitis , Andrius Shahlaytautalvin Attending Unavailable ALBERTO SOLIS Attending Unavailable KAFTAN JR, ELICEO R Referring Unavailable KAFTAN JR, ELICEO R Primary Care Unavailable KAJEROMEAN, ELICEO R Attending Unavailable NANCY SWENSON Attending Unavailable RON KING Attending Unavailable DIPTI ACEVEDO Attending Unavailable CARMEN CRUZ Attending Unavailable NANCY SWENSON Attending Unavailable SIDNEY AMEZQUITA Attending Unavailable KAFTAN, ELICEO R Attending Unavailable KAFTAN, ELICEO R Referring Unavailable KAFTAN, ELICEO R Attending Unavailable KAFTAN, ELICEO R Referring Unavailable KAFTAN, ELICEO R Referring Unavailable RON KING Attending Unavailable WENDYAN, ELICEO R Referring Unavailable DIPTI ACEVEDO Attending Unavailable DIPTI ACEVEDO Attending Unavailable RON KING Attending Unavailable DIPTI ACEVEDO Attending Unavailable DIPTI ACEVEDO Attending Unavailable DIPTI ACEVEDO Attending Unavailable DIPTI ACEVEDO Attending Unavailable NELSY SNYDER Attending Unavailable Allergies Allergy Classification Reported Allergen(s) Allergy Type Date of Onset Reaction(s) Facility risperiDONE (1 source) risperiDONE Drug Allergy 9 [facility] (20 sources) risperiDONE; Translations: [RisperDAL TABS] Drug Allergy 0 Intolerance, Other (See Comments) [facility] (1 source) oxyCODONE Drug Allergy [facility] (1 source) risperiDONE Drug Allergy [facility] (20 sources) POISON BRENDA EXTRACT; Translations: [POISON BRENDA EXTRACT] Drug Allergy 3 Rash [facility] (20 sources) risperiDONE Drug Allergy 9 [facility] (1 source) risperiDONE Drug Allergy [facility] Rep[facility] (1 source) POISON BRENDA; Translations: [POISON BRENDA] Propensity to adverse reactions to drug (disorder) 2 [facility] Repository (1 source) risperiDONE Drug Allergy 5 [facility] Repository Medications Current Medications Medication Drug Class(es) [...] needed for Pain Scale 1 - 5 30 September 20, 2017 1:00am October 01, 2018 10:41am acyclovir 400 mg oral tablet (13 sources) Herpesvirus Nucleoside Analog DNA Polymerase Inhibitor, Herpes Simplex Virus Nucleoside Analog DNA Polymerase Inhibitor, Herpes Zoster Virus Nucleoside Analog DNA Polymerase Inhibitor Start: 11-29-2020 take 1 tablet by mouth every twelve hours [id number] 200 actuat albuterol 0.09 mg/actuat metered dose inhaler (20 sources) beta2-Adrenergic Agonist Start: 04-14-2025 take 2 puff(s) by inhalation every four hours for wheezing albuterol HFA 90 mcg/act inhaler Indications: Mild intermittent asthma, unspecified whether complicated (HCC) INHALE 2 PUFFS EVERY 4 HOURS IF NEEDED FOR WHEEZING. 18 g 1 04/14/2025 Active Start: 11-13-2024 End: 02-21-2025 take 2 puff(s) [...] on above: inhale 2 puffs by mo [facility] INTO THE LUNGS every 4 hours if needed Albuterol-Budesonide (Airsupra) 90-80 MCG/ACT aerosol (3 sources) Start: 06-06-20 Albuterol-Budesonide (Airsupra) 90-80 MCG/ACT aerosol Indications: Mild persistent asthma with acute exacerbation (HCC) Inhale 2 Inhalations every 4 (four) hours if needed (for wheezing) 10.7 g 11 06/06/2025 Active 24 hr amphetamine aspartate 6.25 mg / amphetamine sulfate 6.25 mg / dextroamphetamine saccharate 6.25 mg / dextroamphetamine sulfate 6.25 mg extended release oral capsule (2 sources) Central Nervous System Stimulant Start: 06-18-20 take 1 capsule by mouth in the morning, then take 1 capsule by mouth every twenty-four hours at bedtime amphetamine-dextroam phetamine XR (Adderall XR) 25 MG 24 hr capsule Take 25 mg by mouth in the morning and 25 mg before bedtime. 06/18/2025 Active Start: 05-16-2025 take 1 capsule by mo uth every twenty-four hours amphetamine-dextroamphetamine XR (ADDERA LL XR) 25 mg 24 hr capsule Take by mouth. 05/16/2025 Active ARIPiprazole 400 mg extended release prefilled syringe (20 sources) Atypical Antipsychotic Start: 06-12-2025 Abilify Maintena 400 MG injection syringe INJECT INTRAMUSCULARLY ONCE A MONTH (BRING TO OFFICE FOR PROVIDER TO ADMINISTER) 06/12/2025 Active Start: 09-16-2024 Start: 02-26-2024 Abilify Mainte na [...] 13, 2017 1:00am October 01, 2018 10:40am End: 06-24-2025 ARIPiprazole ER (Abilify) 40 0 MG injection Inject 400 mg into the shoulder, thigh, or buttocks 1 (one) time 06/24/2025 Discontinued (Duplicate order) ARIPiprazole (AB ILIFY MAINTENA) 300 mg suspension,extended [...] oral tablet (20 sources) beta-Adrenergic Zack Start: 06-05-2025 take 1 tablet by mouth once daily atenolol (Tenormin) 50 MG tablet Indications: Hypertension, unspecified type TAKE 1 TABLET BY MOUTH EVERY DAY 90 tablet 1 06/05/2025 Active Start: 06-24-2024 End: 05-26-2025 take 1 tablet [...] 1 tablet by yancy th every afternoon. baclofen 10 mg oral tablet (10 sources) gamma-Aminobutyric Acid-ergic Agonist Start: 05-06-2025 take 0.5-1 tablets by mouth three times daily baclofen (LIORESAL) 10 mg tablet TAKE 1/2 TO 1 TABLET BY MOUTH 3 TIMES A DAY 05/06/2025 Active Start: 08-01-2024 End: 09-26-2024 take 1 tablet by mouth once daily baclofen (Lioresal) 10 MG tablet Take 10 mg by mouth Daily 08/01/2024 09/26/2024 Discontinued (Therapy completed) celecoxib 200 mg oral capsule (20 sources) [...] tablet (20 sources) Histamine-1 Receptor Antagonist Start: End: take 1 tablet [...] 19, 2018 1:13pm cholecalciferol 0.125 mg oral tablet (20 sources) Vitamin D Start: 06-09-2025 take 1 tablet by mouth once daily Natural Vitamin D-3 125 MCG (5000 UT) tablet Take 5,000 Units by mouth Daily 06/09/2025 Active Start: 05-27-2024 End: 06-24-2025 take 1 capsule by mouth once daily cholecalciferol (Vitamin D-3) 125 MCG (5000 UT) capsule Take 125 mcg by mouth Daily 05/27/2024 06/24/2025 Discontinued (Duplicate order) Start: 03-11-2024 [facility] Vitamin D3 125 MCG (5000 UT) per tablet Take 1 tablet by mouth daily. 90 tablet 3 03/11/2024 Active Start: 05-12-2023 take 1 capsule by mo [facility] once daily cholecalciferol, vitamin D3, 5,000 units tablet Take 1 tablet (5,000 Units total) by mouth. Active End: 01-25-2024 take 1 capsule by mouth once daily Cholecalciferol, Vitamin D3, 25 mcg (1,000 unit) cap Take 1,000 Units by mouth once daily. 0 01/25/2024 Discontinued (Course of therapy completed) Cholecalciferol, Vitamin D3, (VITAMIN D) 25 mcg (1,000 unit) cap Take 1,000 Units by mouth once daily. 0 Active Comment on above: Take 1,000 Units by mouth once daily. 168 hr cloNIDine 0.72444 mg/hr transdermal system (4 sources) Central alpha-2 Adrenergic Agonist Start: 3 cloNIDine (CATAPRES-TTS) 0.1 mg/[address] 1 patch on the skin once a week. New patch on Monday 0 09/27/2023 Active colestipol hydrochloride 1000 mg oral tablet (15 sources) Bile Acid Sequestrant Start: 5 take 1 tablet by mouth at bedtime colestipoL (COLESTID) 1 g tablet Indications: Diarrhea, unspecified type Take 1 tablet (1 g total) by mouth in the morning and 1 tablet (1 g total) before bedtime. 60 tablet 3 06/06/2025 Active Start: 10-23-2024 take 1 tablet by yancy th in the morning colestipol (Colestid) 1 g tablet Take 1 g by mouth in the morning and 1 g in the evening. 10/23/2024 Active End: 06-06-2025 colestipoL (COLESTID) 1 g ta blet Take by mouth every 12 (twelve) hours. 06/06/2025 Discontinued (Reorder) cyproheptadine hydrochloride 4 mg oral tablet (5 sources) Start: 01-09-2025 cyproheptadine (Periactin) 4 MG tablet Take 4 mg by mouth as needed at bedtime 01/09/2025 Active Daridorexant (8 sources) Start: 09-16-2024 take 1 tablet by mouth [...] as dir ected. daridorexant 50 mg tablet (11 sources) take 1 tablet by mouth once [...] mg/ml vaginal cream (20 sources) Estrogen Start: 06-24-2025 estradiol (Est race) 0.1 MG/GM vaginal cream Indications: Hormone replacement therapy , Dyspareunia in female Apply 0.5g vaginally twice weekly. 42.5 g 1 06/24/2025 Active Start: 04-11-2025 End: 06-24-2025 estradiol (Estrace) 0.1 MG/G M vaginal cream Indications: Hormone replacement therapy , Dyspareunia in female Apply 0.5g vaginally twice weekly. 42.5 g 04/11/2025 06/24/2025 Discontinued (Reorder) Start: 10-22-2024 estradiol (Est race) 0.1 MG/GM vaginal cream Indications: Hormone replacement therapy , Dyspareunia in female Apply 0.5g vaginally twice weekly. 42.5 g 1 11/26/2024 Active Start: 09-16-2024 Start: 09-16-2024 Estradiol 0.01 % (0.1 mg/gram) cream Active VAGINAL September 16, 2024 12:00am Start: 09-04-2024 End: 06-24-2026 take 1 tablet by mouth once daily estradiol (Estrace) 1 MG tablet Indications: Night sweats Take 1 tablet (1 mg) by mouth Daily 90 tablet 3 06/24/2025 06/24/2026 Active Start: 07-29-2024 estradiol (Est race) 0.1 [...] 19, 2019 12:00am February 18, 2020 10:25am estradioL (ESTRA CE) 0.01 % (0.1 mg/gram) vaginal cream APPLY 0.5G VAGINALLY TWICE A WEEK Active famotidine 40 mg oral tablet (9 sources) [...] by mouth every other day 03/11/2024 Active take 1 tablet by yancy th every other day ferrous sulfate 325 (65 FE) mg EC tablet Take 65 mg by mouth every other day. Active fluticasone propionate 0.05 mg/actuat metered dose [...] Propionate (Flon ase Allergy Relief) 50 mcg/actuation Amberg,Suspension Discontinued 2 SPRAY INTRANASAL Daily October 15, 2018 1:00am June 18, 2019 3:04pm Comment on above: Use 1 Amberg in each nostril once daily. 30 actuat fluticasone furoate 0.1 mg/actuat / umeclidinium 0.0625 mg/actuat / vilanterol 0.025 mg/actuat dry powder inhaler (20 sources) Anticholinergic, Corticosteroid, beta2-Adrenergic Agonist Start: 02-05-2025 take 1 puff(s) by mouth once daily Trelegy Ellipta 100-62.5-25 MCG/ACT aerosol powder Indications: Mild intermittent asthma, unspecified whether complicated (HCC) INHALE 1 PUFF BY MOUTH DAILY 60 each 1 02/05/2025 Active Start: 12-11-2024 take 1 puff(s) by mo uth once [...] Indications: Mild intermittent asthma, unspecified whether complicated ([facility]) INHALE 1 PUFF BY MOUTH DAILY 60 each 1 08/15/2024 Active Start: 01-11-2024 End: 12-08-2024 take 1 puff(s) by inhalation once daily Lsnaktenbfi-Ayrwbntbz-Yvulaj 100-62.5-25 MCG/ACT aerosol powder Indications: Asthma Inhale [...] puff(s) by in halation in the morning qojbbvwvjod-eiipjbpgw-aeorjqcd (TRELEGY ELLIPTA) 100-62.5-25 mcg blister with device Indications: Asthma, unspecified asthma severity, unspecified whether complicated, unspecified whether persistent Inhale 1 puff in the morning. 60 each 5 05/31/2022 Active End: 07-11-2024 Rlbfbciejfu-Izegocxvq-Qzrudb (Trelegy Ellipta) 100-62.5-25 MCG/ACT aerosol powder Inhale [...] mg/ml auto-injector (20 sources) Start: 3 End: fremanezumab-vfrm (AJOVY AUTOINJECTOR) 225 mg/1.5 mL [...] auto-injector (20 sources) Start: 05-15-20 24 End: 04-21-20 inject 120 mg by subcutaneous [...] inulin 200 mg / lactobacillus rhamnosus gg [id number] unt oral capsule (1 source) Start: 022 End: take 1 capsule by mouth once [...] morning. Active take 1 tablet by yancy once daily lamoTRIgine dispersible/chewable (LAMICTAL) 25 mg tablet Take 25 mg by mouth once daily. 0 Active take 2 tablets by mo [facility] in the morning lamoTRIgine (LaMICtal) 25 mg tablet Take 2 tablets (50 mg total) by mouth in the morning. 0 Active Comment on above: Take 25 mg by mouth once daily. lidocaine 0.05 mg/mg medicated patch (1 source) Antiarrhythmic, Amide Local Anesthetic Start: 025 lidocaine (LIDODERM) 5 % APPLY 1 PATCH TO AFFECTED AREA FOR 12 HOURS, THEN REMOVE FOR 12 HOURS 04/02/2025 Active lisdexamfetamine dimesylate 70 mg oral capsule (20 sources) Central Nervous System Stimulant Start: 025 take 1 capsule by mouth once daily lisdexamfetamine (Vyvanse) 70 MG capsule Take 70 mg by mouth Daily 05/08/2025 Active Start: 01-08-2025 End: 06-06-2025 lisdexamfetamine (Vyvanse) 6 0 MG capsule 01/08/2025 06/06/2025 Discontinued Start: 03-09-2024 End: 07-11-2024 take 1 capsule [...] on above: Take 1 capsule by mo [facility] every afternoon. LORazepam 1 mg oral [...] 2024 4:04pm take 1 tablet by yancy th every twenty-four hours LORazepam 0.5 MG 1 tablet at bedtime as needed Orally Once a day Active losartan potassium 50 mg oral tablet (20 sources) Angiotensin 2 Receptor Zakc Start: 05-12-2025 take 1 tablet by mouth once daily losartan (Cozaar) 50 MG tablet Indications: Hypertension, unspecified type TAKE 1 TABLET BY MOUTH EVERY DAY 90 tablet 1 05/12/2025 Active Start: 01-20-2025 take 1 tablet by yancy th once daily losartan (Cozaar) 50 MG tablet Indications: Hypertension, unspecified type (CMS/HCC) Take 1 tablet (50 mg) by mouth Daily 30 tablet 5 01/20/2025 Active Start: 05-14-2024 End: 05-14-2025 take 1 tablet by mouth once daily meloxicam 15 mg oral tablet (4 sources) Nonsteroidal Anti-inflammatory Drug Start: 01-03-2025 take 1 [...] 30 tablet 11 09/04/2024 09/04/2025 Active mirtazapine 30 mg oral table t (20 sources) Start: 06-20-2025 mirtazapine (R emeron) 30 MG tablet 06/20/2025 Active Start: 12-26-2024 End: 06-24-2025 mirtazapine (Remeron) 15 MG tablet 12/26/2024 06/24/2025 Discontinued (Duplicate order) Start: 12-19-2018 End: 02-18-2020 take 2 tablets by mouth once daily Mirtazapine (Remeron) 15 mg Tablet Discontinued 30 MG PO Daily December 19, 2018 1:00am February 18, 2020 10:26am Multiple Vitamin (Daily-Elisa Multivitamin) tablet (11 sources) Start: 11-04-2024 take 1 tablet by mouth once daily Multiple Vitamin (Daily-Elisa Multivitamin) tablet Take 1 tablet by mouth Daily 11/04/2024 Active nystatin 804325 unt/ml oral suspension (20 sources) Polyene Antifungal Start: 08-01-2024 End: 08-09-2024 nystatin (Mycostatin) [id number] UNIT/ML suspension Indications: Oral candidiasis Take 5 mL (500,000 Units) by mouth in the morning and 5 mL (500,000 Units) at noon and 5 mL (500,000 Units) in the evening and 5 mL (500,000 Units) before bedtime. Do all this for 8 days. 160 mL 08/01/2024 08/09/2024 Active Start: 05-03-2024 End: 07-11-2024 nystatin (Mycostatin) 900944 UNIT/ML suspension Take 5 mL by mouth [...] bedtime. rimegepant 75 mg disintegrating oral tablet (11 sources) Start: 3 rimegepant 75 mg tablet,disintegratin [...] MOUTH IN THE MORNING 90 tablet 1 06/05/2025 Active Start: 11-26-2024 take 1 tablet by [...] the AM and 2 mg PM sennosides, mcc 8.6 mg oral tablet (6 sources) Start: [...] mg/ml topical cream (20 sources) Corticosteroid Start: 06-24-2025 triamcinolone (Kenalog) 0.1 % cream Indications: Erythema Apply topically in the morning and before bedtime. to affected area. 45 g 1 06/24/2025 Active Start: 04-14-2025 End: 06-24-2025 triamcinolone (Kenalog) 0.1 % cream Indications: Erythema APPLY TO AFFECTED AREA TWICE A DAY 45 g 1 04/14/2025 06/24/2025 Discontinued (Reorder) Start: 11-27-2024 triamcinolone (Kenalog) 0.1 % cream [...] B12 100 MCG as directed Orally Active vitamin D2-vitamin K1 20-120 mcg/4 drops drops (1 source) vitamin D2-vitam in K1 20-120 mcg/4 drops drops Active zonisamide 50 mg oral capsule (1 source) Anti-epileptic Agent Start: 06-12-2025 take 1 capsule by mouth once daily zonisamide (Zonegran) 50 MG capsule Take 50 mg by mouth Daily 06/12/2025 Active Completed/Discontinued Medications Medication Drug Class(es) Dates [...] once daily. betamethasone 0.5 mg/ml topical cream (3 sources) [...] of therapy completed) take 1 tablet by [facility] twice daily as needed Cyclobenzaprine HCl 10 MG 1 tablet as needed Orally up to twice daily as needed for 30 day(s) Active Comment on above: Take by mouth three times daily. dexlansoprazole 60 mg delayed release oral capsule (20 sources) Proton Pump Inhibitor Start: 10-05-20 End: 06-06-20 take 1 capsule by mouth once daily Dexlansoprazole (Dexilant) 60 mg Capsule,Biphase Delayed Releas Discontinued 60 MG PO Daily June 05, 2023 12:00am September 16, 2024 4:04pm Comment on above: take 1 capsule by [facility] every morning BEFORE BREAKFAST take 1 capsule by [facility] before breakfast Dexlansoprazole (Dexilant) 60 mg [...] 3:04pm Start: 06-05-2023 take 1 capsule by [facility] once daily Dexlansoprazole (Dexilant) 60 mg Capsule,Biphase Delayed Releas Active 60 MG PO Daily June 04, 2023 11:00pm Start: 06-05-2023 take 1 capsule by [facility] once daily Dexlansoprazole (Dexilant) 60 mg Capsule,Biphase Delayed Releas Active 60 MG PO Daily June 05, 2023 12:00am diazePAM 10 mg oral tablet (6 sources) Benzodiazepine Start: 07-05-2024 End: 09-04-2024 diazePAM (Valium) 10 MG tablet Take 10 mg by mouth 07/05/2024 09/04/2024 Discontinued (Therapy completed) docusate sodium 50 mg / sennosides, mcc 8.6 mg oral tablet (15 sources) Start: [...] up to 7 days. lactobacillus rhamnosus gg [id number] unt oral capsule (20 sources) Start: 2 [...] capsule by mo ut once daily. linaclotide 0.145 mg oral capsule [...] tablet (15 sources) Leukotriene Receptor Antagonist Start: 018 End: 019 take 1 tablet by mouth once daily [...] on above: Take 2 tablets [facility] hospital as directed. Take 2 tablet at [...] capsule by [facility] twice daily. 24 hr oxybutynin chloride 10 mg extended release oral tablet (15 sources) Cholinergic Muscarinic Antagonist Start: End: take 1 tablet by mouth once daily Oxybutynin Chloride (Ditropan Xl) 10 mg Tablet Extended Release 24hr Discontinued 10 MG PO Daily October 01, 2018 1:00am June 19, 2019 1:23pm phenazopyridine hydrochloride 200 mg oral tablet (15 sources) Start: End: take 1 tablet by mouth every eight hours Phenazopyridine (Pyridium) 200 mg tablet Discontinued 200 MG PO Q8H 6 February 18, 2020 12:00am June 05, 2023 10:13am polyethylene glycol 3350 99080 mg powder for oral solution (3 sources) [...] on above: take 1 tablet by yancy th once daily psyllium 520 mg oral capsule (3 sources) Start: 12-27-2021 End: 02-08-2022 psyllium Husk (METAMUCIL) 0.52 gram capsule Take 1 capsule by mouth as directed. As needed for constipation 0 12/27/2021 02/08/2022 Discontinued (Course of therapy completed) Comment on above: Take 1 capsule by [facility] as directed. As needed for constipation [...] Take 2 tablets by [facility] three times daily as needed. simethicone [...] Comment on above: Take 1 tablet by [facility] every 8 hours as needed. [...] on above: Take 1,000 mcg by mo [facility] once daily. vortioxetine 10 mg oral [...] tonsillitis] Onset: 1 Resolved: 2 10-24-2023 Chronic Allergic reactions (20 sources) Atopic dermatitis; Translations: [...] Chronic Esophageal disorders (2 sources) Esophagitis; Translations: [Taylor grade D esophagitis] 04-12-2024 Episodic Esophageal disorders (1 source) Esophageal disorders; Translations: [Gastro-esophageal reflux disease with esophagitis, without bleeding] Onset: 5 Essential hypertension (20 sources) Hypertensive disorder; Translations: [Essential (primary) hypertension] Onset: 0 10-08-2020 Chronic Fluid and electrolyte disorders (1 source) Dehydration; Translations: [DEHYDRATION] Onset: 3 Episodic Gastrointestinal hemorrhage (3 sources) Gastrointestinal hemorrhage; Translations: [Hemorrhage of gastrointestinal tract, unspecified] Episodic Genitourinary congenital anomalies (2 sources) Disorder of hymen; 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] 09-24-2024 Chronic Headache; including migraine (20 sources) Migraine, unspecified, not intractable, without status migrainosus; Translations: [Other migraine, not intractable, without status migrainosus] Onset: 1 04-04-2023 Chronic Headache; including migraine (4 sources) Headache; including migraine; Translations: [HEADACHE UNSPECIFIED] Onset: 3 Inflammatory diseases of female pelvic organs (3 sources) Chronic vulvitis; Translations: [Subacute and chronic vulvitis] 09-04-2024 Episodic Menopausal disorders (20 sources) Genitourinary syndrome of menopause; Translations: [Other specified menopausal and perimenopausal disorders] Onset: 1 08-04-2021 Chronic Menopausal disorders (1 source) Drug therapy finding; Translations: [Hormone replacement therapy] 06-23-2025 Episodic Miscellaneous mental health disorders (14 sources) Avoidant restrictive food intake disorder; Translations: [Avoidant/restrictive food intake disorder] Onset: 0 08-07-2024 Chronic Mood disorders (20 sources) Bipolar I disorder; Translations: [Bipolar disorder, unspecified] Onset: 2 Resolved: 5 10-08-2020 Chronic Mycoses (4 sources) Candidiasis of [...] Translations: [Primary osteoarthritis, right shoulder] Onset: 0 Resolved: 5 09-29-2020 Chronic Other acquired deformities (5 sources) Contracture, right ankle; Translations: [CONTRACTURE RIGHT ANKLE] Onset: 2 Chronic Other aftercare (1 source) Other usp (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; Translations: [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] Onset: 3 Episodic Other circulatory disease (2 sources) Spider nevus; Translations: [Nevus, non-neoplastic] 11-19-2024 Episodic Other connective tissue disease (5 sources) Pain in right foot; Translations: [PAIN IN RIGHT FOOT] Onset: 3 Episodic Other diseases of bladder and urethra (20 sources) Overactive bladder; Translations: [Overactive bladder] Onset: 3 Resolved: 5 04-06-2023 Chronic Other disorders of stomach and [...] Onset: 4 Chronic Other female genital disorders (1 source) Pain in female genitalia on intercourse; Translations: [Unspecified dyspareunia] 06-24-2025 Chronic Other female genital disorders (2 sources) [...] gastrointestinal disorders (20 sources) Flatulence; Translations: [Gas] Onset: 5 Episodic Other gastrointestinal disorders (2 sources) Motility disorder of large intestine; Translations: [Functional intestinal disorder, unspecified] Episodic Other gastrointestinal disorders (2 sources) Disorder of gastrointestinal tract; Translations: [Other specified diseases of the digestive system] Episodic Other gastrointestinal disorders (1 source) Diarrhea; Translations: [Diarrhea, unspecified] 06-06-2025 Episodic Other gastrointestinal disorders (1 source) Passing flatus; Translations: [Flatulence] 06-06-2025 Episodic Other gastrointestinal disorders (1 source) Other dysphagia; Translations: [Other dysphagia] Onset: 5 Episodic Other gastrointestinal disorders (1 source) Diarrhea, unspecified; Translations: [Diarrhea, unspecified] Onset: 5 Episodic Other hematologic conditions (3 sources) Raised cardiac enzyme or marker; Translations: [Other abnormal blood chemistry] Episodic Other hereditary and degenerative nervous system conditions (20 sources) Restless legs; Translations: [Restless legs syndrome] Onset: 0 04-04-2023 Chronic Other inflammatory condition of skin (3 sources) Erythema; Translations: [Erythematous condition, unspecified] 09-04-2024 [...] unspecified] 04-30-2025 Chronic Other nervous system disorders (1 source) Polyneuropathy, unspecified; Translations: [Polyneuropathy, unspecified] Onset: 5 Chronic Other nervous system [...] food and fluid intake] 10-23-2024 Episodic Other screening for suspected conditions (not mental disorders or infectious disease) (20 sources) Mammography abnormal; Translations: [Other abnormal and inconclusive findings on diagnostic imaging of breast] Onset: 3 04-04-2023 Episodic Other skin disorders (3 sources) Night sweats; Translations: [Generalized hyperhidrosis] 09-04-2024 [...] 3 Chronic Residual codes; unclassified (3 sources) Obstructive sleep apnea (adult) (pediatric); Translations: [CHUCKIE (obstructive sleep apnea)] Onset: 3 Chronic Residual codes; unclassified (20 sources) Device in situ; Translations: [Presence of functional implant, unspecified] Onset: 3 08-21-2023 Chronic Residual codes; unclassified (5 sources) Postoperative [...] EXPOS COVID-19] Onset: 2 Unclassified (2 sources) New Patient; Translations: [New Patient] Onset: 4 Unclassified (1 source) Other esophagitis without bleeding; Translations: [Other esophagitis without bleeding] Onset: 4 Unclassified (1 source) <9>Gastroparesis Onset: 5 Urinary tract infections (20 sources) Chronic interstitial [...] pain; Translations: [Generalized abdominal pain] Onset: 08-01-2022 Resolved: 06-23-2025 Episodic Acquired foot deformities (6 sources) Valgus deformity, not elsewhere classified, right ankle; Translations: [Varus deformity, not elsewhere classified, right ankle] Onset: 09-28-2022 Episodic Administrative/social admission (3 sources) Education and/or schooling finding; Translations: [Problems related to education and literacy, unspecified] Onset: 01-25-2024 01-22-2024 Episodic Allergic reactions (1 source) Unspecified contact dermatitis, unspecified cause; Translations: [Contact dermatitis, unspecified contact dermatitis type, unspecified trigger L25.9] Onset: 08-19-2021 Resolved: 08-19-2021 Episodic Complication of device; implant or graft (20 sources) Pain due to internal prosthetic device; Translations: [Pain due to internal orthopedic prosthetic devices, implants and grafts, initial encounter] Onset: 11-09-2023 Resolved: 06-23-2025 11-09-2023 Episodic Complications of surgical procedures or medical care (4 sources) Infection following a procedure, other surgical site, initial encounter; Translations: [INFECT FOL PROC OTH SURG SITE INIT] Onset: 04-17-2022 Episodic Diabetes mellitus without complication (20 sources) Hyperglycemia; Translations: [Hyperglycemia, unspecified] Onset: 04-06-2023 Resolved: 10-03-2023 10-03-2023 Episodic Genitourinary symptoms and ill-defined conditions (20 sources) Incontinence; Translations: [Unspecified urinary incontinence] Onset: 08-01-2022 Resolved: 06-23-2025 04-06-2023 Chronic Genitourinary symptoms and ill-defined conditions (20 sources) Incomplete emptying of bladder; Translations: [Retention of urine, unspecified] Onset: 08-01-2022 Resolved: 06-23-2025 07-31-2023 Episodic Headache; including migraine (20 sources) Headache; Translations: [Headache] Onset: 08-01-2022 Resolved: 06-23-2025 10-24-2023 Episodic Immunizations and screening for infectious disease (1 source) Contact with and (suspected) exposure to other viral communicable diseases; Translations: [Contact with and (suspected) exposure to other viral communicable diseases Z20.828] Onset: 08-13-2021 Resolved: 08-13-2021 Episodic Malaise and fatigue (20 sources) Fatigue; Translations: [Other malaise and fatigue] Onset: 04-01-2021 Resolved: 06-23-2025 Episodic Mood disorders (20 sources) Mood swings; Translations: [Emotional lability] Onset: 04-04-2023 04-04-2023 Episodic Mood disorders (15 sources) Mood disorders Onset: 10-23-2023 Resolved: 01-20-2025 10-23-2023 Nausea and vomiting (20 sources) Nausea and vomiting; Translations: [Nausea with vomiting, unspecified] Onset: 05-10-2022 Resolved: 06-23-2025 Episodic Nutritional deficiencies (20 sources) Cobalamin deficiency; Translations: [Deficiency of other specified B group vitamins] Onset: 10-23-2022 04-06-2023 Episodic Other aftercare (20 sources) Surgical follow-up; Translations: [Encounter for follow-up examination after completed treatment for conditions other than malignant neoplasm] Onset: 01-18-2022 Resolved: 06-23-2025 Episodic Other bone disease and musculoskeletal deformities [...] history of (healed) stress fracture] Onset: 07-06-2023 Resolved: 06-23-2025 07-06-2023 Episodic Other gastrointestinal disorders (20 sources) Colostomy present; Translations: [Colostomy status] Onset: 05-30-2023 Resolved: 09-07-2023 09-07-2023 Chronic Other gastrointestinal disorders (20 sources) Dysphagia; Translations: [Dysphagia, unspecified] Onset: 04-04-2023 Resolved: 01-23-2024 01-23-2024 Episodic Other gastrointestinal disorders (20 sources) Burping; Translations: [Eructation] Onset: 11-30-2023 Resolved: 06-23-2025 11-30-2023 Episodic Other gastrointestinal disorders (1 source) Abdominal distension (gaseous); Translations: [Abdominal distension (gaseous)] Onset: 11-14-2024 Episodic Other infections; including parasitic (20 sources) Personal history of other infectious and parasitic diseases; Translations: [History of 2019 novel coronavirus disease (COVID-19)] Onset: 08-01-2022 Resolved: 06-23-2025 10-15-2021 Episodic Other lower respiratory disease (20 sources) Cough; Translations: [Cough] Onset: 10-02-2023 Resolved: 06-23-2025 10-24-2023 Episodic Other lower respiratory disease (20 sources) Wheezing; Translations: [Wheezing] Onset: 10-02-2023 Resolved: 06-23-2025 10-24-2023 Episodic Other nervous system disorders (20 [...] Episodic Other nutritional; endocrine; and metabolic disorders (4 sources) Weight decreased; Translations: [Abnormal weight loss] Onset: 09-08-2023 Resolved: 06-23-2025 09-08-2023 Episodic Other upper respiratory disease (20 sources) Nasal congestion; Translations: [Nasal congestion] Onset: 01-11-2021 10-24-2023 Episodic Residual codes; unclassified (20 sources) Daytime hypersomnia; Translations: [Hypersomnia, unspecified] Onset: 12-07-2020 Resolved: 06-23-2025 10-24-2023 Chronic Residual codes; unclassified (20 sources) History of [...] Test Name Value Interpretation Reference Range Facility PROTEIN ELECTROPHORESIS, URI NEon 05-14-2025 URINE PROTEIN ELECTROPHORESIS INTERP Unremarkable protein distribution, no monoclonal bands Normal [facility] Comment on above: Performed By: #### 3 5275-7, 6476-6, 8014-3, 46921-2, 5193-8 #### [facility] ([id number]) [address] [place] [address], [address] [place] [address] COPPER, Son 05-13-2025 COPPER 110 mcg/dL Normal 77-206 [facility] Comment on above: Result Comment: ADDITIONAL INFORMATION This test was developed and its performance characteristics determined by [facility] in a manner consistent with CLIA requirements. This test has not been cleared or approved by the U.S. Food and Drug Administration. Test Performed by: [facility] [address] [place] [address] Suspender Cutter: Sindi Archibald Ph.D.; CLIA# [id number] Performed By: #### 3 5275-7, 6476-6, 8014-3, 66822-2, 5193-8 #### [facility] ([id number]) [address], [address] [place] [address] FOLATEon 05-13-2025 FOLIC ACID >^25.0 Normal >5.8 [facility] Comment on above: Performed By: #### F MOISES #### [facility] ([facility]) [address] [place] [address] VIR HEAVY METALS SCRN WITH DEMOG RAPHICSon 05-13-2025 ARSENIC, B <1 Normal <13 [facility] Comment on above: Result Comment: ADDITIONAL INFORMATION This test was developed and its performance characteristics determined by [facility] in a manner consistent with CLIA requirements. This test has not been cleared or approved by the U.S. Food and Drug Administration. Performed By: #### 3 5275-7, 6476-6, 8014-3, 80873-0, 5193-8 #### [facility] ([id number]) [address], [address] [place] [address] CADMIUM, B <0.2 Normal <5.0 [facility] Comment on above: Result Comment: ADDITIONAL INFORMATION This test was developed and its performance characteristics determined by [facility] in a manner consistent with CLIA requirements. This test has not been cleared or approved by the U.S. Food and Drug Administration. Performed By: #### 3 5275-7, 6476-6, 8014-3, 79274-6, 5193-8 #### [facility] ([id number]) [address], [address] [place] [address] HEAVY METAL VENOUS/CAPILLARY Venous Normal [facility] Comment on above: Performed By: #### 3 5275-7, 6476-6, 8014-3, 10138-2, 5193-8 #### [facility] ([id number]) [address], [address] [place] [address] LEAD, B <1.0 Normal <3.5 [facility] Comment on above: Result Comment: ADDITIONAL INFORMATION Testing performed by Triple Quadrupole Inductively Coupled Plasma-Mass Spectrometry (ICP-MS/MS). This test was developed and its performance characteristics determined by [facility] in a manner consistent with CLIA requirements. This test has not been cleared or approved by the U.S. Food and Drug Administration. Performed By: #### 3 5275-7, 6476-6, 8014-3, 69358-6, 5193-8 #### [facility] ([id number]) [address], [address] [place] [address] MERCURY, B <1 Normal <10 [facility] Comment on above: Result Comment: ADDITIONAL INFORMATION This test was developed and its performance characteristics determined by [facility] in a manner consistent with CLIA requirements. This test has not been cleared or approved by the U.S. Food and Drug Administration. Performed By: #### 3 5275-7, 6476-6, 8014-3, 75426-6, 5193-8 #### [facility] ([id number]) [address], [address] [place] [address] HEMOGLOBIN A1Con 05-13-2025 Glucose [Mass/Vol] 103 mg/dL Normal [facility] Comment on above: Performed By: #### H A1C #### [facility] ([facility]) [address] [place] [address] VIR HbA1c (Bld) [Mass fraction] 5.2 % Normal 4.4-5.6 [facility] Comment on above: Result Comment: ADA Guidelines Result HgbA1c Normal : less than 5.7 % Prediabetes : 5.7 % to 6.4 % Diabetes : > 6.4 % Use with caution in patients with abnormal hemoglobin variants as the half-life of red blood cells and in vivo glycation rates are affected. Performed By: #### H A1C #### [facility] ([facility]) [address] [place] [address] VIR PROTEIN ELECTROPHORESIS, SER UMon 05-13-2025 Albumin [Mass/Vol] 3.9 g/dL Normal 3.4-5.3 [facility] Comment on above: Performed By: #### S PE #### [facility] ([facility]) [address] [place] [address] VIR ALPHA 1 GLOBULIN 0.3 g/dL Normal 0.1-0.4 [facility] Comment on above: Performed By: #### S PE #### [facility] ([facility]) [address] [place] [address] VIR ALPHA 2 GLOBULIN 0.6 g/dL Normal 0.4-1.1 [facility] Comment on above: Performed By: #### S PE #### [facility] ([facility]) [address] [place] [address] VIR BETA GLOBULIN 0.8 g/dL Normal 0.5-1.2 [facility] Comment on above: Performed By: #### S PE #### [facility] ([facility]) [address] [place] [address] VIR GAMMA GLOBULIN 0.7 g/dL Normal 0.5-1.6 [facility] Comment on above: Performed By: #### S PE #### [facility] ([facility]) [address] [place] [address] VIR Protein [Mass/Vol] 6.2 g/dL Normal 6.0-8.0 [facility] Comment on above: Performed By: #### S PE #### [facility] ([facility]) [address] [place] [address] VIR PROTEIN ELECTROPHORESIS INTERP Unremarkable protein distribution, no monoclonal bands Normal [facility] Comment on above: Performed By: #### S PE #### [facility] ([facility]) [address] [place] [address] VIR THIAMIN (VITAMIN B1), WBon 0 05-13-2025 THIAMIN (VITAMIN B1), WB 114 nmol/L Normal 70-180 [facility] Comment on above: Result Comment: ADDITIONAL INFORMATION This test was developed and its performance characteristics determined by [facility] in a manner consistent with CLIA requirements. This test has not been cleared or approved by the U.S. Food and Drug Administration. Test Performed by: [facility] [address] [place] [address] Suspender Cutter: Sindi Archibald Ph.D.; CLIA# [id number] Performed By: #### 3 5275-7, 6476-6, 8014-3, 58181-9, 5193-8 #### [facility] ([id number]) [address], [address] [place] [address] TSHon 05-13-2025 TSH 3.16 uIU/mL Normal 0.49-4.67 [facility] Comment on above: Performed By: #### T SH #### [facility] ([facility]) [address] [place] [address] VIR VITAMIN B12on 05-13-2025 Cobalamin (Vitamin B12) [Mass/Vol] 214 pg/mL Normal 180-914 [facility] Comment on above: Performed By: #### B 12 #### [facility] ([facility]) [address] [place] [address] VIR VITAMIN B6 PROFILE (PLP AND PA), Armando 05-13-2025 PYRIDOXAL 5-PHOSPHATE (PLP), P 10 mcg/L Normal 5-50 [facility] Comment on above: Result Comment: ADDITIONAL INFORMATION This test was developed and its performance characteristics determined by [facility] in a manner consistent with CLIA requirements. This test has not been cleared or approved by the U.S. Food and Drug Administration. Performed By: #### 3 5275-7, 6476-6, 8014-3, 13837-4, 5193-8 #### [facility] ([id number]) [address], [address] [place] [address] PYRIDOXIC ACID (PA), P 6 mcg/L Normal 3-30 [facility] Comment on above: Result Comment: ADDITIONAL INFORMATION This test was developed and its performance characteristics determined by [facility] in a manner consistent with CLIA requirements. This test has not been cleared or approved by the U.S. Food and Drug Administration. Test Performed by: [facility] [address] [place] [address] Suspender Cutter: Sindi Archibald Ph.D.; CLIA# [id number] Performed By: #### 3 5275-7, 6476-6, 8014-3, 65713-9, 5193-8 #### [facility] ([id number]) [address] [facility], [address] [place] [address] Magnetic resonance imaging r eportOrdered By: Eitan Weber on 02-25-2025 Study report [facility] [place] [address] [place] [id number] MRI Report Signed Patient: Mary Leal MR#: [id number] : 1970 Acct:[id number] Age/Sex: 54 / F ADM Date: 5 [facility] Room: Type: [facility] CLI Attending Dr: Monica IBARRA Copies to: FRED Schafer~ Ordering Provider: FRED Schafer Date of Service: 02/25/25 MR/MR thoracic spine wo con: THORACIC RADICULOPATHY ([id number]) XR/XR pre/post mri xray: THOARCIC RADICULOPATHY MRI [...] Eitan Weber M.D.02/25/2025 10:14 AM Dictation Location: [place] [address] Transcribed By: MARIO 02/25/25 1014 Dictated By: Eitan Weber MD 02/25/25 1008 Signed By: 02/25/25 1014 [facility] Work Phone: XR pre/post mri xrayon 02-25 XR pre/post mri xray [facility] [place] [address] [place] [address] MRI Report Signed Patient: Mary Leal MR#: [id number] : 1970 Acct:[id number] Age/Sex: 54 / F ADM Date: 02/25/25 Loc: [facility] Room: Type: [facility] Attending Dr: Monica IBARRA Copies to: FRED Schafer Ordering Provider: FRED Schafer Date of Service: 02/25/25 MR/MR thoracic spine wo con: THORACIC RADICULOPATHY ([id number]) XR/XR pre/post mri xray: THOARCIC RADICULOPATHY MRI [...] Eitan Weber M.D.02/25/2025 10:14 AM Dictation Location: [place] [address] Transcribed By: MARIO 02/25/25 1014 Dictated By: Eitan Weber MD 02/25/25 1008 Signed By: 02/25/25 1014 Normal [facility] Alanine aminotransferase [En zymatic activity/volume] in Serum or PlasmaOrdered By: Everett Valdez on 02-17-2025 ALT [Catalytic activity/Vol] Alanine aminotransferase [Enzymatic activity/volume] in Serum or Plasma 7-52 [facility] Albumin [Mass/volume] in Ser um or Plasma by Bromocresol green (BCG) dye binding methoOrdered By: Everett Valdez on 02-17-2025 Albumin BCG dye [Mass/Vol] Albumin [Mass/volume] in Serum or Plasma by Bromocresol green (BCG) dye binding metho 3.5-5.7 [facility] Albumin BCG dye [Mass/Vol] 4.2 g/dL 3.5-5.7 [facility] Alkaline phosphatase [Enzyma tic activity/volume] in Serum or PlasmaOrdered By: Everett Valdez on 02-17-2025 ALP [Catalytic activity/Vol] Alkaline phosphatase [Enzymatic activity/volume] in Serum or Plasma 34-104 [facility] Aspartate aminotransferase [ Enzymatic activity/volume] in Serum or PlasmaOrdered By: Everett Valdez on 02-17-2025 AST [Catalytic activity/Vol] Aspartate aminotransferase [Enzymatic activity/volume] in Serum or Plasma 13-39 [facility] Basophils Auto (Bld) [#/Vol] Ordered By: Everett Valdez on 02-17-2025 Basophils (Bld) [#/Vol] Automated basophil count 0.0-0.2 [facility] Basophils/100 WBC Auto (Bld) Ordered By: Everett Valdez on 02-17-2025 Basophils/100 WBC (Bld) Automated basophil % . [facility] Bilirubin.total [Mass/volume ] in Serum or PlasmaOrdered By: Everett Valdez on 02-17-2025 Bilirubin [Mass/Vol] Bilirubin.total [Mass/volume] in Serum or Plasma 0.3-1.0 [facility] C reactive protein [Mass/vol ume] in Serum or PlasmaOrdered By: Everett Valdez on 02-17-2025 CRP [Mass/Vol] C reactive protein [Mass/volume] in Serum or Plasma 0.0-0.5 [facility] [facility] CRP [Mass/Vol] < 0.5 mg/dL 0.0-0.5 [facility] C-Reactive Proteinon 025 CRP [Mass/Vol] mg/L Normal 0.0-0.5 [facility] Comment on above: Result Comment: PERF ORMED BY: [facility] [address] [facility] [address] PATHOLOGIST SECRETARY OF STATE PAZ RUTHERFORD M.D. Performed By: #### B MP #### [facility] [address] Calcium [Mass/volume] in Ser um or PlasmaOrdered By: Everett Valdez on 02-17-2025 Calcium [Mass/Vol] Calcium [Mass/volume ] in Serum or Plasma 8.6-10.3 [facility] Carbon dioxide, total [Moles /volume] in Serum or PlasmaOrdered By: Everett Valdez on 02-17-2025 CO2 [Moles/Vol] Carbon dioxide, tota l [Moles/volume] in Serum or Plasma 21.0-31.0 [facility] Chloride [Moles/volume] in S jay or PlasmaOrdered By: Everett Valdez on 02-17-2025 Chloride [Moles/Vol] Chloride [Moles/volume] in Serum or Plasma 98-107 [facility] Complete Blood Count Auto Di ffOrdered By: Everett Valdez on 02-17-2025 Basophils (Bld) [#/Vol] 0.0 10*3/uL 0.0-0.2 [facility] Comment on above: Performed By: #### B MP #### [facility] [address] [place] [address] [place] Basophils/100 WBC (Bld) 0.7 % . [facility] Comment on above: Performed By: #### B MP #### [facility] [address] [place] [address] [place] Eosinophils (Bld) [#/Vol] 0.1 10*3/uL 0.0-0.45 [facility] Comment on above: Performed By: #### B MP #### [address] Eosinophils/100 WBC (Bld) 1.9 % . [facility] Comment on above: Performed By: #### B MP #### [address] Erythrocyte distribution width (RBC) [Ratio] 13.6 % 11.9-15.3 [facility] Comment on above: Performed By: #### B MP #### [address] Hematocrit (Bld) [Volume fraction] 41.0 % 34.0-46.4 [facility] Comment on above: Performed By: #### B MP #### [address] Hemoglobin (Bld) [Mass/Vol] 14.0 g/dL 11.8-15.4 [facility] Comment on above: Performed By: #### B MP #### [address] Lymphocytes (Bld) [#/Vol] 1.4 10*3/uL 1.00-4.8 [facility] Comment on above: Performed By: #### B MP #### [address] Lymphocytes/100 WBC (Bld) 29.2 % . [facility] Comment on above: Performed By: #### B MP #### [address] MCH (RBC) [Entitic mass] 28.3 pg 24.7-34.3 [facility] Comment on above: Performed By: #### B MP #### [address] MCV (RBC) [Entitic vol] 83.3 fL 80-100 [facility] Comment on above: Performed By: #### B MP #### [address] Monocytes (Bld) [#/Vol] 0.2 10*3/uL 0.0-0.8 [facility] Comment on above: Performed By: #### B MP #### [facility] [address] Monocytes/100 WBC (Bld) 5.0 % . [facility] Comment on above: Performed By: #### B MP #### [address] Neutrophils (Bld) [#/Vol] 3.1 10*3/uL 1.8-7.7 [facility] Comment on above: Performed By: #### B MP #### [address] Neutrophils/100 WBC (Bld) 63.2 % . [facility] Comment on above: Performed By: #### B MP #### [address] Platelet mean volume (Bld) [Entitic vol] 7.6 fL 6.3-10.7 [facility] Comment on above: Performed By: #### B MP #### [address] Platelets (Bld) [#/Vol] 312 10*3/uL 150-450 [facility] Comment on above: Performed By: #### B MP #### [address] RBC (Bld) [#/Vol] 4.93 10*6/uL 3.60-5.00 [facility] Comment on above: Performed By: #### B MP #### [place] [address] [place] WBC (Bld) [#/Vol] 4.9 10*3/uL 3.8-11.6 [facility] Comment on above: Performed By: #### B MP #### [address] Complete Blood Count Auto Di ffon 02-17-2025 Mean Corpuscular HGB Conc 34.0 g/dL Normal 32.0-35.0 [facility] Comment on above: Performed By: #### B MP #### [address] NRBC% 0.1 /100{WBC} Normal 0-0.5 [facility] Comment on above: Performed By: #### B MP #### [address] Comprehensive Metabolic Pane boyd 02-17-2025 Albumin [Mass/Vol] 4.2 g/dL Normal 3.5-5.7 The [facility] Comment on above: Performed By: #### B MP #### [address] GFR/1.73 sq M.predicted MDRD (S/P/Bld) [Vol rate/Area] mL/min/{1.73_m2} Normal [facility] Comment on above: Performed By: #### B MP #### [address] Comprehensive Metabolic Pane lOrdered By: Everett Valdez on 02-17-2025 Albumin/Globulin [Mass ratio] 2.0 {ratio} [facility] Comment on above: Performed By: #### B MP #### [address] ALP [Catalytic activity/Vol] 96 U/L 34-104 [facility] Comment on above: Performed By: #### B MP #### [address] ALT [Catalytic activity/Vol] 38 U/L 7-52 [facility] Comment on above: Performed By: #### B MP #### [address] Anion gap [Moles/Vol] 9.4 mmol/L 6.0-15.0 [facility] Comment on above: Performed By: #### B MP #### [address] AST [Catalytic activity/Vol] 34 U/L 13-39 [facility] Comment on above: Performed By: #### B MP #### [facility] [address] Bilirubin [Mass/Vol] 0.3 mg/dL 0.3-1.0 [facility] Comment on above: Performed By: #### B MP #### [facility] [address] Calcium [Mass/Vol] 8.9 mg/dL 8.6-10.3 [facility] Comment on above: Performed By: #### B MP #### [facility] [address] Chloride [Moles/Vol] 104 mmol/L 98-107 [facility] Comment on above: Performed By: #### B MP #### [facility] [address] [place] [address] CO2 [Moles/Vol] 30.2 mmol/L 21.0-31.0 [facility] Comment on above: Performed By: #### B MP #### [address] Creatinine [Mass/Vol] 0.61 mg/dL 0.60-1.20 [facility] Comment on above: Performed By: #### B MP #### [address] Globulin (S) [Mass/Vol] 2.1 g/dL [facility] Comment on above: Performed By: #### B MP #### [address] Glucose [Mass/Vol] 94 mg/dL 70-100 [facility] Comment on above: Result Comment: [place] Glucose Reference Range is dependent on time and content of last meal. Glucose of more than 200 mg/dL in a nonstressed, ambulatory subject supports the diagnosis of Diabetes Mellitus. ADA recommended reference range Performed By: #### B MP #### [address] ADA recommended refe rence rangeRandom Glucose Reference Range is dependent on time and content of last meal. Glucose of more than 200 mg/dL in a nonstressed, ambulatory subject supports the diagnosis of Diabetes Mellitus. Potassium [Moles/Vol] 4.6 mmol/L 3.5-5.1 [facility] Comment on above: Performed By: #### B MP #### [address] Protein [Mass/Vol] 6.3 g/dL Low 6.4-8.9 [facility] Comment on above: Performed By: #### B MP #### [address] Sodium [Moles/Vol] 139 mmol/L 136-145 [facility] Comment on above: Performed By: #### B MP #### [address] Urea nitrogen [Mass/Vol] 19 mg/dL 7-25 [facility] Comment on above: Performed By: #### B MP #### [address] Creatine KinaseOrdered By: Dirk Valdez on 02-17-2025 CK [Catalytic activity/Vol] 539 U/L [facility] Comment on above: Result Comment: PERF ORMED BY: [place] [address] PATHOLOGIST SECRETARY OF STATE PAZ RUTHERFORD M.D. Performed By: #### B MP #### [address] Creatine kinase [Enzymatic a ctivity/volume] in Serum or PlasmaOrdered By: Everett Valdez on 02-17-2025 CK [Catalytic activity/Vol] Creatine kinase [Enzymatic activity/volume] in Serum or Plasma [facility] Creatinine [Mass/volume] in Serum or PlasmaOrdered By: Everett Valdez on 02-17-2025 Creatinine [Mass/Vol] Creatinine [Mass/volume] in Serum or Plasma 0.60-1.20 [facility] Eosinophils Auto (Bld) [#/Vo l]Ordered By: Everett Valdez on 02-17-2025 Eosinophils (Bld) [#/Vol] Automated eosinophil count 0.0-0.45 [facility] Eosinophils/100 WBC Auto (Bl d)Ordered By: Everett Valdez on 02-17-2025 Eosinophils/100 WBC (Bld) Automated eosinophil % . [facility] Erythrocyte Sedimentation Ra lian 02-17-2025 ESR (Bld) [Velocity] 4 mm/h Normal 0-29 [facility] Comment on above: Result Comment: PERF ORMED BY: [place] [address] PATHOLOGIST SECRETARY OF STATE PAZ RUTHERFORD M.D. Performed By: #### B #### [address] Erythrocyte distribution wid th Auto (RBC) [Ratio]Ordered By: Everett Valdez on 02-17-2025 Erythrocyte distribution width (RBC) [Ratio] Erythrocyte distribution width [Ratio] by Automated count 11.9-15.3 [facility] Erythrocyte sedimentation ra te by Photometric methodOrdered By: Everett Valdez on 02-17-2025 ESR Photometric method (Bld) [Velocity] Erythrocyte sedimentation rate by Photometric method 0-29 [facility] ESR Photometric method (Bld) [Velocity] 4 mm/hr 0-29 [facility] Globulin Calc (S) [Mass/Vol] Ordered By: Everett Valdez on 02-17-2025 Globulin (S) [Mass/Vol] Serum globulin measurement by calculation (mass/volume) [facility] Glucose [Mass/volume] in Ser um or PlasmaOrdered By: Everett Valdez on 02-17-2025 Glucose [Mass/Vol] Glucose [Mass/volume ] in Serum or Plasma 70-100 [facility] Comment on above: ADA recommended refe rence rangeRandom Glucose Reference Range is dependent on time and content of last meal. Glucose of more than 200 mg/dL in a nonstressed, ambulatory subject supports the diagnosis of Diabetes Mellitus. Hematocrit Auto (Bld) [Volum e fraction]Ordered By: Everett Valdez on 02-17-2025 Hematocrit (Bld) [Volume fraction] Hematocrit [Volume Fraction] of Blood by Automated count 34.0-46.4 [facility] Hemoglobin [Mass/volume] in BloodOrdered By: Everett Valdez on 02-17-2025 Hemoglobin (Bld) [Mass/Vol] Hemoglobin [Mass/volume] in Blood 11.8-15.4 [facility] LDH Lactate Dehydrogenaseon 02-17-2025 LDH Lactate Dehydrogenase 219 U/L Normal 140-271 [facility] Comment on above: Performed By: #### B MP #### [address] Lactate dehydrogenase [Enzym atic activity/volume] in Serum or Plasma by Lactate to pyOrdered By: Everett Valdez on 02-17-2025 LDH Lactate to pyruvate reaction [Catalytic activity/Vol] Lactate dehydrogenase [Enzymatic activity/volume] in Serum or Plasma by Lactate to py 140-271 [facility] LDH Lactate to pyruvate reaction [Catalytic activity/Vol] 219 U/L 140-271 [facility] Leukocytes [#/volume] correc herbert for nucleated erythrocytes in Blood by Automated counOrdered By: Everett Valdez on 02-17-2025 WBC corrected for nucl RBC Auto (Bld) [#/Vol] Leukocytes [#/volume] corrected for nucleated erythrocytes in Blood by Automated coun 3.8-11.6 [facility] WBC corrected for nucl RBC Auto (Bld) [#/Vol] 4.9 10*3/uL 3.8-11.6 [facility] Lymphocytes Auto (Bld) [#/Vo l]Ordered By: Everett Valdez on 02-17-2025 Lymphocytes (Bld) [#/Vol] Lymphocytes [#/volume] in Blood by Automated count 1.00-4.8 [facility] Lymphocytes/100 WBC Auto (Bl d)Ordered By: Everett Valdez on 02-17-2025 Lymphocytes/100 WBC (Bld) Lymphocytes/100 leukocytes in Blood by Automated count . [facility] MCH Auto (RBC) [Entitic mass ]Ordered By: Everett Valdez on 02-17-2025 MCH (RBC) [Entitic mass] MCH [Entitic mass] by Automated count 24.7-34.3 [facility] MCHC Auto (RBC) [Mass/Vol]Or dered By: Everett Valdez on 02-17-2025 MCHC (RBC) [Mass/Vol] MCHC [Mass/volume] by Automated count 32.0-35.0 [facility] MCHC (RBC) [Mass/Vol] 34.0 g/dL 32.0-35.0 [facility] MCV Auto (RBC) [Entitic vol] Ordered By: Everett Valdez on 02-17-2025 MCV (RBC) [Entitic vol] MCV [Entitic volume] by Automated count 80-100 [facility] Monocytes Auto (Bld) [#/Vol] Ordered By: Everett Valdez on 02-17-2025 Monocytes (Bld) [#/Vol] Automated blood monocyte count 0.0-0.8 [facility] Monocytes/100 WBC Auto (Bld) Ordered By: Everett Valdez on 02-17-2025 Monocytes/100 WBC (Bld) Automated monocyte % . [facility] MyoglobinOrdered By: Everett Valdez on 02-17-2025 Myoglobin [Mass/Vol] 187 ng/mL High 25-58 [facility] Comment on above: Result Comment: Perf ormed at: - [facility] [address] [id number] Suspender Cutter: Erick Neville PhD, Phone: [phone] PERFORMED BY: [place] [address] PATHOLOGIST SECRETARY OF STATE PAZ RUTHERFORD M.D. Performed By: #### E SR, TSH3, CK, ADDONUAPLUS, CBC, CRP, CMP, T4F #### [address] #### RPR W RFX, ALDOLASE, GUZMAN,URINE, UPE RAND #### [facility] , Performed at: [facility] [id number] [place], [place] [id number] Director: Erick Neville PhD, Phone: [phone] Neutrophils Auto (Bld) [#/Vo l]Ordered By: Everett Valdez on 02-17-2025 Neutrophils (Bld) [#/Vol] Neutrophils [#/volume] in Blood by Automated count 1.8-7.7 [facility] Neutrophils/100 WBC Auto (Bl d)Ordered By: Everett Valdez on 02-17-2025 Neutrophils/100 WBC (Bld) Automated neutrophil % . [facility] No Panel InformationOrdered By: Everett Valdez on 02-17-2025 Estimated GFR (CKD-EPI) > 60.0 mL/Min [facility] Creatinine Clearance (Chem N/A [facility] Nucleated erythrocytes [Pres ence] in Blood by Automated countOrdered By: Everett Valdez on 02-17-2025 Nucleated RBC Auto Ql (Bld) Nucleated erythrocytes [Presence] in Blood by Automated count 0-0.5 [facility] Nucleated RBC Auto Ql (Bld) 0.1 /100{WBC} 0-0.5 [facility] Platelet mean volume Auto (B ld) [Entitic vol]Ordered By: Everett Valdez on 02-17-2025 Platelet mean volume (Bld) [Entitic vol] Platelet mean volume [Entitic volume] in Blood by Automated count 6.3-10.7 [facility] Platelets Auto (Bld) [#/Vol] Ordered By: Everett Valdez on 02-17-2025 Platelets (Bld) [#/Vol] Platelets [#/volume] in Blood by Automated count 150-450 [facility] Potassium [Moles/volume] in Serum or PlasmaOrdered By: Everett Valdez on 02-17-2025 Potassium [Moles/Vol] Potassium [Moles/volume] in Serum or Plasma 3.5-5.1 [facility] Protein [Mass/volume] in Ser um or PlasmaOrdered By: Everett Valdez on 02-17-2025 Protein [Mass/Vol] Protein [Mass/volume ] in Serum or Plasma Low 6.4-8.9 [facility] RBC Auto (Bld) [#/Vol]Ordere d By: Everett Valdez on 02-17-2025 RBC (Bld) [#/Vol] Erythrocytes [#/volume] in Blood by Automated count 3.60-5.00 [facility] Serum aldolase measurementOr dered By: Everett Valdez on 02-17-2025 Aldolase 11.4 U/L High 3.3-10.3 [facility] Comment on above: Performed at: [facility] [address] [id number] Director: Erick Neville PhD, Phone: [phone] Result Comment: Perf ormed at: - [facility] [address] [id number] Suspender Cutter: Erick Neville PhD, Phone: [phone] PERFORMED BY: [place] [address] PATHOLOGIST SECRETARY OF STATE PAZ RUTHERFORD M.D. Performed By: #### E SR, TSH3, CK, ADDONUAPLUS, CBC, CRP, CMP, T4F #### [address] #### RPR W RFX, ALDOLASE, GUZMAN,URINE, UPE RAND #### [facility] , Serum or plasma albumin/glob ulin mass ratioOrdered By: Everett Valdez on 02-17-2025 Albumin/Globulin [Mass ratio] Serum or plasma albumin/globulin mass ratio [facility] Serum or plasma anion gap de terminationOrdered By: Everett Valdez on 02-17-2025 Anion gap [Moles/Vol] Serum or plasma an ion gap determination 6.0-15.0 [facility] Serum or plasma myoglobin me asurement (mass/volume)Ordered By: Everett Valdez on 02-17-2025 Myoglobin [Mass/Vol] Serum or plasma myoglobin measurement (mass/volume) High 25-58 [facility] Comment on above: Performed at: [facility] [address] [id number] Director: Erick Neville PhD, Phone: [phone] Sodium [Moles/volume] in Ser um or PlasmaOrdered By: Everett Valdez on 02-17-2025 Sodium [Moles/Vol] Sodium [Moles/volume ] in Serum or Plasma 136-145 [facility] Urea nitrogen [Mass/volume] in Serum or PlasmaOrdered By: Everett Valdez on 02-17-2025 Urea nitrogen [Mass/Vol] Urea nitrogen [Mass/volume] in Serum or Plasma 7-25 [facility] WBC Auto (Bld) [#/Vol]Ordere d By: Everett Valdez on 02-17-2025 WBC (Bld) [#/Vol] Leukocytes [#/volume ] in Blood by Automated count 3.8-11.6 [facility] 36on 01-24-2025 36 Attempted to call patient to reschedule canceled [facility] follow up appointment. [facility] XR FOOT RT MIN 3Von 01-03-20 [place] [address] XRay Report Signed Patient: MARY LEAL MR#: [id number] : 1970 Acct:[id number] Age/Sex: 54 / F ADM Date: 01/03/25 Loc: EC Attending Dr: Sade Felix D.P.M. Ordering Physician: Sade Felix D.P.M. Date of Service: 01/03/25 Procedure(s): XR foot RT min 3V Accession Number(s): [id number] cc: Sade Felix D.P.M.; Isatu GÓMEZ [place] [id number] Patient Name: MARY LEAL MRN: [id number] date: 1970 Sex: F Assigned Patient Location: Current Patient Location: EC Accession/Order Number: [id number] Exam Date: 01/03/2025 12:17 Report Date: 01/03/2025 [...] Makenna Pathak M.D.01/03/2025 12:21 PM Dictation Location: [place] [address] Electronically authenticated by: [id number] Y Date: 01/03/2025 12:21 Dictated By: Makenna Pathak M.D. Signed By: 01/03/25 1223 DD/ 1221 TD/TT: Trial Court Justice: [facility] Radiology, Radiologist, MD - 01/03/2025 [place] [address] XRay Report Signed Patient: MARY LEAL MR#: [id number] : 1970 Acct:[id number] Age/Sex: 54 / F ADM Date: 01/03/25 Loc: Attending Dr: Sade Felix D.P.M. Ordering Physician: Sade Felix D.P.M. Date of Service: 01/03/25 Procedure(s): XR foot RT min 3V Accession Number(s): [id number] cc: Sade Felix D.P.M.; Isatu GÓMEZ [address] [place] [id number] Patient Name: MARY LEAL MRN: [facility]:[id number] date: 1970 Sex: F Assigned Patient Location: Current Patient Location: Accession/Order Number: [id number] Exam Date: 01/03/2025 12:17 Report Date: 01/03/2025 [...] Makenna Pathak M.D.01/03/2025 12:21 PM Dictation Location: [place] [address] Electronically authenticated by: [id number] Y Date: 01/03/2025 12:21 Dictated By: Makenna Pathak M.D. Signed By: 01/03/25 1223 DD/ 1221 TD/TT: Trial Court Justice: [facility] Radiology Study observation (narrative) [facility] XR FOOT RT MIN 3VOrdered By: Radiologist Radiology on 01-03-2025 [facility] Work Phone: 24 hour urine albumin/total protein ratio by electrophoresisOrdered By: Everett Valdez on 12-16-2024 Albumin Elph (24H U) [Mass fraction] Albumin/Protein.total in 24 hour Urine by Electrophoresis . [facility] 24 hour urine gamma globulin /total protein ratio by electrophoresisOrdered By: Everett Valdez on 12-16-2024 Gamma globulin Elph (24H U) [Mass fraction] Gamma globulin/Protein.total in 24 hour Urine by Electrophoresis . [facility] 24 hour urine protein monocl onal/total protein by electrophoresisOrdered By: Everett Valdez on 12-16-2024 Protein.monoclonal Elph (24H U) [Mass fraction] Protein.monoclonal/Pro tein.total in 24 hour Urine by Electrophoresis Not Observed [facility] CHUYITA Antinuclear Antibodieson 12-16-2024 Antinuclear Abs, IFA Negative Normal . [facility] Comment on above: Result Comment: Nega tive <1:80 Borderline 1:80 Positive >1:80 ICAP nomenclature: AC-0 For more information about Hep-2 cell patterns use ANApatterns.org, the official website for the International Consensus on Antinuclear Antibody (CHUYITA) Patterns (ICAP). Performed at: [facility] [id number] Suspender Cutter: Erick Neville PhD, Phone: [phone] Performed By: #### P P #### [address] #### LUPANTCOAG #### [facility] , Alanine aminotransferase [En zymatic activity/volume] in Serum or PlasmaOrdered By: Everett Valdez on 12-16-2024 ALT [Catalytic activity/Vol] Alanine aminotransferase [Enzymatic activity/volume] in Serum or Plasma 752 [facility] Albumin [Mass/volume] in Ser um or Plasma by Bromocresol green (BCG) dye binding methoOrdered By: Everett Valdez on 12-16-2024 Albumin BCG dye [Mass/Vol] Albumin [Mass/volume] in Serum or Plasma by Bromocresol green (BCG) dye binding metho 3.5-5.7 [facility] Alkaline phosphatase [Enzyma tic activity/volume] in Serum or PlasmaOrdered By: Everett Valdez on 12-16-2024 ALP [Catalytic activity/Vol] Alkaline phosphatase [Enzymatic activity/volume] in Serum or Plasma 34-104 [facility] Antithyroglobulin Abon 12-16 Antithyroglobulin Ab <1.0 Normal 0.0-0.9 [facility] Comment on above: Result Comment: Thyr oglobulin Antibody measured by [employer] Method[employer] It should be noted that the presence of thyroglobulin antibodies may not be pathogenic nor diagnostic, especially at very low levels. The assay public policy associate has found that four percent of individuals without evidence of thyroid disease or autoimmunity will have positive TgAb levels up to 4 IU/mL. Performed at: [facility] [address] [id number] Suspender Cutter: Erick Neville PhD, Phone: [phone] Performed By: #### C BC #### [address] Appearance of UrineOrdered B y: Everett Valdez on 12-16-2024 Appearance (U) Urine appearance Clear [facility] Aspartate aminotransferase [ Enzymatic activity/volume] in Serum or PlasmaOrdered By: Everett Valdez on 12-16-2024 AST [Catalytic activity/Vol] Aspartate aminotransferase [Enzymatic activity/volume] in Serum or Plasma 13-39 [facility] Bacteria [Presence] in Urine by AutomatedOrdered By: Everett Valdez on 12-16-2024 Bacteria Auto Ql (U) Bacteria [Presence] in Urine by Automated None Seen [facility] Basophils Auto (Bld) [#/Vol] Ordered By: Everett Valdez on 12-16-2024 Basophils (Bld) [#/Vol] Automated basophil count 0.0-0.2 [facility] Basophils/100 WBC Auto (Bld) Ordered By: Everett Valdez on 12-16-2024 Basophils/100 WBC (Bld) Automated basophil % . [facility] Bilirubin Test strip Ql (U)O rdered By: Everett Valdez on 12-16-2024 Bilirubin Ql (U) Bilirubin.total [Presence] in Urine by Test strip Negative [facility] Bilirubin.total [Mass/volume ] in Serum or PlasmaOrdered By: Everett Valdez on 12-16-2024 Bilirubin [Mass/Vol] Bilirubin.total [Mass/volume] in Serum or Plasma 0.3-1.0 [facility] C reactive protein [Mass/vol ume] in Serum or PlasmaOrdered By: Everett Valdez on 12-16-2024 CRP [Mass/Vol] C reactive protein [Mass/volume] in Serum or Plasma 0.0-0.5 [facility] C-Reactive Proteinon 025 CRP [Mass/Vol] mg/L Normal 0.0-0.5 [facility] Comment on above: Performed By: #### E SR, TSH3, CK, ADDONUAPLUS, CBC, CRP, CMP, T4F #### [facility] [address] [place] [address] #### RPR W RFX, ALDOLASE, GUZMAN,URINE, UPE RAND #### [facility] , Calcium [Mass/volume] in Ser um or PlasmaOrdered By: Everett Valdez on 12-16-2024 Calcium [Mass/Vol] Calcium [Mass/volume ] in Serum or Plasma 8.6-10.3 [facility] Carbon dioxide, total [Moles /volume] in Serum or PlasmaOrdered By: Everett Valdez on 12-16-2024 CO2 [Moles/Vol] Carbon dioxide, tota l [Moles/volume] in Serum or Plasma 21.0-31.0 [facility] Chloride [Moles/volume] in S jay or PlasmaOrdered By: Everett Valdez on 12-16-2024 Chloride [Moles/Vol] Chloride [Moles/volume] in Serum or Plasma 98-107 [facility] Chromatin Antibodyon 025 Chromatin Antibody <0.2 Normal 0.0-0.9 [facility] Comment on above: Result Comment: Perf ormed at: - [facility] [address] [id number] Suspender Cutter: Erick Neville PhD, Phone: [phone] PERFORMED BY: [place] [address] PATHOLOGIST SECRETARY OF STATE PAZ RUTHERFORD M.D. Performed By: #### C BC #### [facility] [address] [place] [address] Coagulation Profileon 2024 aPTT Coag (Bld) [Time] 28.7 s Normal 25.1-36.5 [facility] Comment on above: Result Comment: A he matocrit value greater than 55% may lead to inaccurate results in coagulation testing. Patients having hematocrit values >55% require a special collection tube for coagulation studies. Please contact the laboratory at [phone] for redraw instructions. PERFORMED BY: [place] [address] PATHOLOGIST SECRETARY OF STATE PAZ RUTHERFORD M.D. Performed By: #### P P #### [facility] [address] [place] [address] #### LUPANTCOAG #### [facility] , INR Coag (PPP) [Relative time] 0.9 {INR} Normal [facility] Comment on above: [...] 4.5 Performed By: #### P P #### [place] [address] [place] #### LUPANTCOAG #### [facility] , PT Coag (PPP) [Time] 10.5 s Normal 9.0-12.9 [facility] Comment on above: Result Comment: A he matocrit value greater than 55% may lead to inaccurate results in coagulation testing. Patients having hematocrit values >55% require a special collection tube for coagulation studies. Please contact the laboratory at [phone] for redraw instructions. Performed By: #### P P #### [place] [address] [place] #### LUPANTCOAG #### [facility] , Color Auto (U)Ordered By: Dori Valdez on 12-16-2024 Color (U) Color of Urine by Auto Yellow [facility] Complement C3on 12-16-2024 Complement C3 133 mg/dL Normal 82-167 [facility] Comment on above: Result Comment: Perf ormed at: CB - [facility] [address] [id number] Suspender Cutter: Erick Neville PhD, Phone: [phone] Performed By: #### C BC #### [address] Complement C4on 12-16-2024 Complement C4 26 mg/dL Normal 12-38 [facility] Comment on above: Performed By: #### C BC #### [place] [address] [place] Complement Total (CH50)on Complement Total (CH50) >60 Normal >41 [facility] Comment on above: [...] out of range values. Performed at: - [facility] [id number] Suspender Cutter: Erick Neville PhD, Phone: [phone] PERFORMED BY: [place] [address] PATHOLOGIST SECRETARY OF STATE PAZ RUTHERFORD M.D. Performed By: #### P P #### [address] #### LUPANTCOAG #### [facility] , Complete Blood Count Auto Di ffon 12-16-2024 Basophils (Bld) [#/Vol] 0.0 10*3/uL Normal 0.0-0.2 [facility] Comment on above: Performed By: #### P P #### [address] #### LUPANTCOAG #### [facility] , Basophils/100 WBC (Bld) 0.7 % Normal . [facility] Comment on above: Performed By: #### P P #### [place] [address] [place] #### LUPANTCOAG #### [facility] , Eosinophils (Bld) [#/Vol] 0.1 10*3/uL Normal 0.0-0.45 [facility] Comment on above: Performed By: #### P P #### [place] [address] [place] #### LUPANTCOAG #### [facility] , Eosinophils/100 WBC (Bld) 2.3 % Normal . [facility] Comment on above: Performed By: #### P P #### [place] [address] [place] #### LUPANTCOAG #### [facility] , Erythrocyte distribution width (RBC) [Ratio] 12.8 % Normal 11.9-15.3 [facility] Comment on above: Performed By: #### P P #### [place] [address] [place] #### LUPANTCOAG #### [facility] , Hematocrit (Bld) [Volume fraction] 39.6 % Normal 34.0-46.4 [facility] Comment on above: Performed By: #### P P #### [place] [address] [place] #### LUPANTCOAG #### [facility] , Hemoglobin (Bld) [Mass/Vol] 13.3 g/dL Normal 11.8-15.4 [facility] Comment on above: Performed By: #### P P #### [place] [address] [place] #### LUPANTCOAG #### [facility] , Lymphocytes (Bld) [#/Vol] 1.8 10*3/uL Normal 1.00-4.8 [facility] Comment on above: Performed By: #### P P #### [place] [address] [place] #### LUPANTCOAG #### [facility] , Lymphocytes/100 WBC (Bld) 32.0 % Normal . [facility] Comment on above: Performed By: #### P P #### [place] [address] [place] #### LUPANTCOAG #### [facility] , MCH (RBC) [Entitic mass] 28.4 pg Normal 24.7-34.3 [facility] Comment on above: Performed By: #### P P #### [address] #### LUPANTCOAG #### [facility] , MCV (RBC) [Entitic vol] 84.6 fL Normal 80-100 [facility] Comment on above: Performed By: #### P P #### [address] #### LUPANTCOAG #### [facility] , Mean Corpuscular HGB Conc 33.6 g/dL Normal 32.0-35.0 [facility] Comment on above: Performed By: #### P P #### [address] #### LUPANTCOAG #### [facility] , Monocytes (Bld) [#/Vol] 0.3 10*3/uL Normal 0.0-0.8 [facility] Comment on above: Performed By: #### P P #### [place] [address] [place] #### LUPANTCOAG #### [facility] , Monocytes/100 WBC (Bld) 5.1 % Normal . [facility] Comment on above: Performed By: #### P P #### [place] [address] [place] #### LUPANTCOAG #### [facility] , Neutrophils (Bld) [#/Vol] 3.3 10*3/uL Normal 1.8-7.7 [facility] Comment on above: Performed By: #### P P #### [place] [address] [place] #### LUPANTCOAG #### [facility] , Neutrophils/100 WBC (Bld) 59.9 % Normal . [facility] Comment on above: Performed By: #### P P #### [facility] [address] [place] [address] [place] #### LUPANTCOAG #### [facility] , NRBC% 0.1 /100{WBC} Normal 0-0.5 [facility] Comment on above: Performed By: #### P P #### [facility] [address] [place] [address] [place] #### LUPANTCOAG #### [facility] , Platelet mean volume (Bld) [Entitic vol] 7.5 fL Normal 6.3-10.7 [facility] Comment on above: Performed By: #### P P #### [facility] [address] [place] [address] #### LUPANTCOAG #### [facility] , Platelets (Bld) [#/Vol] 347 10*3/uL Normal 150-450 [facility] Comment on above: Performed By: #### P P #### [facility] [address] [place] [address] #### LUPANTCOAG #### [facility] , RBC (Bld) [#/Vol] 4.68 10*6/uL Normal 3.60-5.00 [facility] Comment on above: Performed By: #### P P #### [facility] [address] [place] [address] [place] #### LUPANTCOAG #### [facility] , WBC (Bld) [#/Vol] 5.6 10*3/uL Normal 3.8-11.6 The [facility] Comment on above: Performed By: #### P P #### [facility] [address] [place] [address] [place] #### LUPANTCOAG #### [facility] , Comprehensive Metabolic Pane boyd 12-16-2024 Albumin [Mass/Vol] 4.1 g/dL Normal 3.5-5.7 [facility] Comment on above: Performed By: #### E SR, TSH3, CK, ADDONUAPLUS, CBC, CRP, CMP, T4F #### [address] #### RPR W RFX, ALDOLASE, GUZMAN,URINE, UPE RAND #### [facility] , Albumin/Globulin [Mass ratio] 1.9 {ratio} Normal [facility] Comment on above: Performed By: #### E SR, TSH3, CK, ADDONUAPLUS, CBC, CRP, CMP, T4F #### [address] #### RPR W RFX, ALDOLASE, GUZMAN,URINE, UPE RAND #### [facility] , ALP [Catalytic activity/Vol] 84 U/L Normal 34-104 [facility] Comment on above: Performed By: #### E SR, TSH3, CK, ADDONUAPLUS, CBC, CRP, CMP, T4F #### [address] #### RPR W RFX, ALDOLASE, GUZMAN,URINE, UPE RAND #### [facility] , ALT [Catalytic activity/Vol] 31 U/L Normal 7-52 [facility] Comment on above: Performed By: #### E SR, TSH3, CK, ADDONUAPLUS, CBC, CRP, CMP, T4F #### [address] #### RPR W RFX, ALDOLASE, GUZMAN,URINE, UPE RAND #### [facility] , Anion gap [Moles/Vol] 8.2 mmol/L Normal 6.0-15.0 [facility] Comment on above: Performed By: #### E SR, TSH3, CK, ADDONUAPLUS, CBC, CRP, CMP, T4F #### [address] #### RPR W RFX, ALDOLASE, GUZMAN,URINE, UPE RAND #### [facility] , AST [Catalytic activity/Vol] 31 U/L Normal 13-39 [facility] Comment on above: Performed By: #### E SR, TSH3, CK, ADDONUAPLUS, CBC, CRP, CMP, T4F #### [address] #### RPR W RFX, ALDOLASE, GUZMAN,URINE, UPE RAND #### [facility] , Bilirubin [Mass/Vol] 0.3 mg/dL Normal 0.3-1.0 [facility] Comment on above: Performed By: #### E SR, TSH3, CK, ADDONUAPLUS, CBC, CRP, CMP, T4F #### [address] #### RPR W RFX, ALDOLASE, GUZMAN,URINE, UPE RAND #### [facility] , Calcium [Mass/Vol] 9.3 mg/dL Normal 8.6-10.3 [facility] Comment on above: Performed By: #### E SR, TSH3, CK, ADDONUAPLUS, CBC, CRP, CMP, T4F #### [address] #### RPR W RFX, ALDOLASE, GUZMAN,URINE, UPE RAND #### [facility] , Chloride [Moles/Vol] 107 mmol/L Normal 98-107 [facility] Comment on above: Performed By: #### E SR, TSH3, CK, ADDONUAPLUS, CBC, CRP, CMP, T4F #### [address] #### RPR W RFX, ALDOLASE, GUZMAN,URINE, UPE RAND #### [facility] , CO2 [Moles/Vol] 30.0 mmol/L Normal 21.0-31.0 [facility] Comment on above: Performed By: #### E SR, TSH3, CK, ADDONUAPLUS, CBC, CRP, CMP, T4F #### [address] #### RPR W RFX, ALDOLASE, GUZMAN,URINE, UPE RAND #### [facility] , Creatinine [Mass/Vol] 0.70 mg/dL Normal 0.60-1.20 [facility] Comment on above: Performed By: #### E SR, TSH3, CK, ADDONUAPLUS, CBC, CRP, CMP, T4F #### [address] #### RPR W RFX, ALDOLASE, GUZMAN,URINE, UPE RAND #### [facility] , GFR/1.73 sq M.predicted MDRD (S/P/Bld) [Vol rate/Area] mL/min/{1.73_m2} Normal [facility] Comment on above: Performed By: #### E SR, TSH3, CK, ADDONUAPLUS, CBC, CRP, CMP, T4F #### [address] #### RPR W RFX, ALDOLASE, GUZMAN,URINE, UPE RAND #### [facility] , Globulin (S) [Mass/Vol] 2.2 g/dL Normal [facility] Comment on above: Performed By: #### E SR, TSH3, CK, ADDONUAPLUS, CBC, CRP, CMP, T4F #### [place] [address] [place] #### RPR W RFX, ALDOLASE, GUZMAN,URINE, UPE RAND #### [facility] , Glucose [Mass/Vol] 85 mg/dL Normal 70-100 [facility] Comment on above: Result Comment: [facility] Glucose Reference Range is dependent on time and content of last meal. Glucose of more than 200 mg/dL in a nonstressed, ambulatory subject supports the diagnosis of Diabetes Mellitus. ADA recommended reference range Performed By: #### E SR, TSH3, CK, ADDONUAPLUS, CBC, CRP, CMP, T4F #### [address] #### RPR W RFX, ALDOLASE, GUZMAN,URINE, UPE RAND #### [facility] , Potassium [Moles/Vol] 4.2 mmol/L Normal 3.5-5.1 [facility] Comment on above: Performed By: #### E SR, TSH3, CK, ADDONUAPLUS, CBC, CRP, CMP, T4F #### [address] #### RPR W RFX, ALDOLASE, GUZMAN,URINE, UPE RAND #### [facility] , Protein [Mass/Vol] 6.3 g/dL Low 6.4-8.9 [facility] Comment on above: Performed By: #### E SR, TSH3, CK, ADDONUAPLUS, CBC, CRP, CMP, T4F #### [address] #### RPR W RFX, ALDOLASE, GUZMAN,URINE, UPE RAND #### [facility] , Sodium [Moles/Vol] 141 mmol/L Normal 136-145 [facility] Comment on above: Performed By: #### E SR, TSH3, CK, ADDONUAPLUS, CBC, CRP, CMP, T4F #### [place] [address] [place] #### RPR W RFX, ALDOLASE, GUZMAN,URINE, UPE RAND #### [facility] , Urea nitrogen [Mass/Vol] 11 mg/dL Normal 7-25 [facility] Comment on above: Performed By: #### E SR, TSH3, CK, ADDONUAPLUS, CBC, CRP, CMP, T4F #### [address] #### RPR W RFX, ALDOLASE, GUZMAN,URINE, UPE RAND #### [facility] , Creatine Kinaseon 12-16-2024 CK [Catalytic activity/Vol] 487 U/L High 30-223 [facility] Comment on above: Result Comment: PERF ORMED BY: [place] [address] PATHOLOGIST SECRETARY OF STATE PAZ RUTHERFORD M.D. Performed By: #### E SR, TSH3, CK, ADDONUAPLUS, CBC, CRP, CMP, T4F #### [address] #### RPR W RFX, ALDOLASE, GUZMAN,URINE, UPE RAND #### [facility] , Creatine kinase [Enzymatic a ctivity/volume] in Serum or PlasmaOrdered By: Everett Valdez on 12-16-2024 CK [Catalytic activity/Vol] Creatine kinase [Enzymatic activity/volume] in Serum or Plasma High 30-223 [facility] Creatinine [Mass/volume] in Serum or PlasmaOrdered By: Everett Valdez on 12-16-2024 Creatinine [Mass/Vol] Creatinine [Mass/volume] in Serum or Plasma 0.60-1.20 [facility] Dipstick and Microscopicon 0 12-16-2024 Appearance (U) Clear Normal Clear [facility] Comment on above: Order Comment: Name Collection Type:: Clean-Voided Midstream Performed By: #### E SR, TSH3, CK, ADDONUAPLUS, CBC, CRP, CMP, T4F #### [address] #### RPR W RFX, ALDOLASE, GUZMAN,URINE, UPE RAND #### [facility] , Bacteria,Urine Rare Normal None Seen [facility] Comment on above: Order Comment: Name Collection Type:: Clean-Voided Midstream Performed By: #### E SR, TSH3, CK, ADDONUAPLUS, CBC, CRP, CMP, T4F #### [address] #### RPR W RFX, ALDOLASE, GUZMAN,URINE, UPE RAND #### [facility] , Bilirubin,Urine Negative Normal Negative [facility] Comment on above: Order Comment: Name Collection Type:: Clean-Voided Midstream Performed By: #### E SR, TSH3, CK, ADDONUAPLUS, CBC, CRP, CMP, T4F #### [address] #### RPR W RFX, ALDOLASE, GUZMAN,URINE, UPE RAND #### [facility] , Color (U) Yellow Normal Yellow [facility] Comment on above: Order Comment: Name Collection Type:: Clean-Voided Midstream Performed By: #### E SR, TSH3, CK, ADDONUAPLUS, CBC, CRP, CMP, T4F #### [address] #### RPR W RFX, ALDOLASE, GUZMAN,URINE, UPE RAND #### [facility] , Glucose Ql (U) Normal Normal Normal [facility] Comment on above: Order Comment: Name Collection Type:: Clean-Voided Midstream Performed By: #### E SR, TSH3, CK, ADDONUAPLUS, CBC, CRP, CMP, T4F #### [address] #### RPR W RFX, ALDOLASE, GUZMAN,URINE, UPE RAND #### [facility] , Hyaline Casts,Urine 0-8 Normal 0-8 [facility] Comment on above: Order Comment: Name Collection Type:: Clean-Voided Midstream Performed By: #### E SR, TSH3, CK, ADDONUAPLUS, CBC, CRP, CMP, T4F #### [facility] [address] #### RPR W RFX, ALDOLASE, GUZMAN,URINE, UPE RAND #### [facility] , Ketones Ql (U) Negative Normal Negative [facility] Comment on above: Order Comment: Name Collection Type:: Clean-Voided Midstream Performed By: #### E SR, TSH3, CK, ADDONUAPLUS, CBC, CRP, CMP, T4F #### [address] #### RPR W RFX, ALDOLASE, GUZMAN,URINE, UPE RAND #### [facility] , Leukocyte esterase Test strip Ql (U) Negative Normal Negative [facility] Comment on above: Order Comment: Name Collection Type:: Clean-Voided Midstream Performed By: #### E SR, TSH3, CK, ADDONUAPLUS, CBC, CRP, CMP, T4F #### [address] #### RPR W RFX, ALDOLASE, GUZMAN,URINE, UPE RAND #### [facility] , Mucus,Urine 1+ Critically abnormal [facility] Comment on above: Order Comment: Name Collection Type:: Clean-Voided Midstream Result Comment: PERF ORMED BY: [place] [address] PATHOLOGIST SECRETARY OF STATE PAZ RUTHERFORD M.D. Performed By: #### E SR, TSH3, CK, ADDONUAPLUS, CBC, CRP, CMP, T4F #### [address] #### RPR W RFX, ALDOLASE, GUZMAN,URINE, UPE RAND #### [facility] , Nitrite,Urine Negative Normal Negative [facility] Comment on above: Order Comment: Name Collection Type:: Clean-Voided Midstream Performed By: #### E SR, TSH3, CK, ADDONUAPLUS, CBC, CRP, CMP, T4F #### [address] #### RPR W RFX, ALDOLASE, GUZMAN,URINE, UPE RAND #### [facility] , Occult Blood,Urine Negative Normal Negative [facility] Comment on above: Order Comment: Name Collection Type:: Clean-Voided Midstream Performed By: #### E SR, TSH3, CK, ADDONUAPLUS, CBC, CRP, CMP, T4F #### [address] #### RPR W RFX, ALDOLASE, GUZMAN,URINE, UPE RAND #### [facility] , pH (U) 5.0 [pH] Normal 5.0-9.0 [facility] Comment on above: Order Comment: Name Collection Type:: Clean-Voided Midstream Performed By: #### E SR, TSH3, CK, ADDONUAPLUS, CBC, CRP, CMP, T4F #### [address] #### RPR W RFX, ALDOLASE, GUZMAN,URINE, UPE RAND #### [facility] , Protein,Urine Negative Normal Negative [facility] Comment on above: Order Comment: Name Collection Type:: Clean-Voided Midstream Performed By: #### E SR, TSH3, CK, ADDONUAPLUS, CBC, CRP, CMP, T4F #### [address] #### RPR W RFX, ALDOLASE, GUZMAN,URINE, UPE RAND #### [facility] , RBC,Urine 1-2 Normal 0-4 [facility] Comment on above: Order Comment: Name Collection Type:: Clean-Voided Midstream Performed By: #### E SR, TSH3, CK, ADDONUAPLUS, CBC, CRP, CMP, T4F #### [place] [address] [place] #### RPR W RFX, ALDOLASE, GUZMAN,URINE, UPE RAND #### [facility] , Specificy Grant,Urine 1.024 Normal 1.001-1.030 [facility] Comment on above: Order Comment: Name Collection Type:: Clean-Voided Midstream Performed By: #### E SR, TSH3, CK, ADDONUAPLUS, CBC, CRP, CMP, T4F #### [address] #### RPR W RFX, ALDOLASE, GUZMAN,URINE, UPE RAND #### [facility] , Squamous Epithelial Cell,Urine 5-9 High 0-2 [facility] Comment on above: Order Comment: Name Collection Type:: Clean-Voided Midstream Performed By: #### E SR, TSH3, CK, ADDONUAPLUS, CBC, CRP, CMP, T4F #### [address] #### RPR W RFX, ALDOLASE, GUZMAN,URINE, UPE RAND #### [facility] , Urobilinogen,Urine Normal Normal Normal [facility] Comment on above: Order Comment: Name Collection Type:: Clean-Voided Midstream Performed By: #### E SR, TSH3, CK, ADDONUAPLUS, CBC, CRP, CMP, T4F #### [address] #### RPR W RFX, ALDOLASE, GUZMAN,URINE, UPE RAND #### [facility] , WBC,Urine 1-2 Normal 0-4 [facility] Comment on above: Order Comment: Name Collection Type:: Clean-Voided Midstream Performed By: #### E SR, TSH3, CK, ADDONUAPLUS, CBC, CRP, CMP, T4F #### [address] #### RPR W RFX, ALDOLASE, GUZMAN,URINE, UPE RAND #### [facility] , Eosinophils Auto (Bld) [#/Vo l]Ordered By: Everett Valdez on 12-16-2024 Eosinophils (Bld) [#/Vol] Automated eosinophil count 0.0-0.45 [facility] Eosinophils/100 WBC Auto (Bl d)Ordered By: Everett Valdez on 12-16-2024 Eosinophils/100 WBC (Bld) Automated eosinophil % . [facility] Epithelial cells.squamous [# /area] in Urine sediment by Automated countOrdered By: Everett Valdez on 12-16-2024 Epithelial cells.squamous Auto (Urine sed) [#/Area] Epithelial cells.squamous [#/area] in Urine sediment by Automated count High 0-2 [facility] Erythrocyte Sedimentation Ra lian 12-16-2024 ESR (Bld) [Velocity] 6 mm/h Normal 0-29 [facility] Comment on above: Result Comment: PERF ORMED BY: [place] [address] PATHOLOGIST SECRETARY OF STATE PAZ RUTHERFORD M.D. Performed By: #### P P #### [place] [address] [place] #### LUPANTCOAG #### [facility] , Erythrocyte distribution wid th Auto (RBC) [Ratio]Ordered By: Everett Valdez on 12-16-2024 Erythrocyte distribution width (RBC) [Ratio] Erythrocyte distribution width [Ratio] by Automated count 11.9-15.3 [facility] Erythrocyte sedimentation ra te by Photometric methodOrdered By: Everett Valdez on 12-16-2024 ESR Photometric method (Bld) [Velocity] Erythrocyte sedimentation rate by Photometric method 0-29 [facility] Erythrocytes [#/area] in Uri ne sediment by Automated countOrdered By: Everett Valdez on 12-16-2024 RBC Auto (Urine sed) [#/Area] Erythrocytes [#/area] in Urine sediment by Automated count 0-4 [facility] Free T4 (Free Thyroxine)on 0 - Free T4 [Mass/Vol] 0.77 ng/dL Normal 0.61-1.12 [facility] Comment on above: Performed By: #### E SR, TSH3, CK, ADDONUAPLUS, CBC, CRP, CMP, T4F #### [facility] [address] #### RPR W RFX, ALDOLASE, GUZMAN,URINE, UPE RAND #### [facility] , Globulin Calc (S) [Mass/Vol] Ordered By: Everett Valdez on 12-16-2024 Globulin (S) [Mass/Vol] Serum globulin measurement by calculation (mass/volume) [facility] Glucose [Mass/volume] in Ser um or PlasmaOrdered By: Everett Valdez on 12-16-2024 Glucose [Mass/Vol] Glucose [Mass/volume ] in Serum or Plasma 70-100 [facility] Comment on above: ADA recommended refe rence rangeRandom Glucose Reference Range is dependent on time and content of last meal. Glucose of more than 200 mg/dL in a nonstressed, ambulatory subject supports the diagnosis of Diabetes Mellitus. Glucose [Mass/volume] in Uri ne by Test stripOrdered By: Everett Valdez on 12-16-2024 Glucose Test strip (U) [Mass/Vol] Glucose [Mass/volume] in Urine by Test strip Normal [facility] Hematocrit Auto (Bld) [Volum e fraction]Ordered By: Everett Valdez on 12-16-2024 Hematocrit (Bld) [Volume fraction] Hematocrit [Volume Fraction] of Blood by Automated count 34.0-46.4 [facility] Hemoglobin Test strip Ql (U) Ordered By: Everett Valdez on 12-16-2024 Hemoglobin Ql (U) Hemoglobin [Presence ] in Urine by Test strip Negative [facility] Hemoglobin [Mass/volume] in BloodOrdered By: Everett Valdez on 12-16-2024 Hemoglobin (Bld) [Mass/Vol] Hemoglobin [Mass/volume] in Blood 11.8-15.4 [facility] Hyaline casts [#/area] in Ur ine sediment by Automated countOrdered By: Everett Valdez on 12-16-2024 Hyaline casts Auto (Urine sed) [#/Area] Hyaline casts [#/area] in Urine sediment by Automated count 0-8 [facility] INR in Platelet poor plasma by Coagulation assayOrdered By: Everett Valdez on 12-16-2024 INR Coag (PPP) [Relative time] INR in Platelet poor plasma by Coagulation assay [facility] Comment on above: INR Therapeutic Rang e [...] Immunofixation (U) [Interp] Immunofixation for Urine . [facility] Comment on above: No monoclonality det ected.Performed at: [facility] [place] [id number] Director: Erick Neville PhD, Phone: [phone] Immunofixation, (GUZMAN), Urine on 12-16-2024 Immunofixation, (GUZMAN), Urine Comment Normal . [facility] Comment on above: Result Comment: No m onoclonality detected. Performed at: [facility] [place] [address] Suspender Cutter: Erick Neville PhD, Phone: [phone] Performed By: #### P P #### [facility] [address] [place] [address] [place] #### LUPANTCOAG #### [facility] , Immunofixation,Serumon 12-16 Immunofixation, Serum Comment Normal . [facility] Comment on above: Result Comment: No m onoclonality detected. Performed By: #### P P #### [facility] [address] [place] [address] [place] #### LUPANTCOAG #### [facility] , Immunoglobulin A, Serum 216 mg/dL Normal 87-352 [facility] Comment on above: Performed By: #### P P #### [facility] [facility] [address] [place] [address] [place] #### LUPANTCOAG #### [facility] , Immunoglobulin G 802 mg/dL Normal [id number] [facility] Comment on above: Performed By: #### P P #### [facility] [address] [place] [address] [place] #### LUPANTCOAG #### [facility] , Immunoglobulin M, Serum 78 mg/dL Normal 26-217 [facility] Comment on above: Result Comment: Perf ormed at: - [facility] [address] [id number] Suspender Cutter: Erick Neville PhD, Phone: [phone] Performed By: #### P P #### [facility] [address] [place] [address] [place] #### LUPANTCOAG #### [facility] , Ketones Test strip Ql (U)Ord ered By: Everett Valdez on 12-16-2024 Ketones Ql (U) Ketones [Presence] i n Urine by Test strip Negative [facility] Leukocyte esterase [Presence ] in Urine by Test stripOrdered By: Everett Valdez on 12-16-2024 Leukocyte esterase Test strip Ql (U) Leukocyte esterase [Presence] in Urine by Test strip Negative [facility] Leukocytes [#/area] in Urine sediment by Automated countOrdered By: Everett Valdez on 12-16-2024 WBC Auto (Urine sed) [#/Area] Leukocytes [#/area] in Urine sediment by Automated count 0-4 [facility] Leukocytes [#/volume] correc herbert for nucleated erythrocytes in Blood by Automated counOrdered By: Everett Valdez on 12-16-2024 WBC corrected for nucl RBC Auto (Bld) [#/Vol] Leukocytes [#/volume] corrected for nucleated erythrocytes in Blood by Automated coun 3.8-11.6 [facility] Lupus Anticoagulant Compon 0 12-16-2024 Dilute Prothrombin Time (dPt) 30.8 Normal 0.0-47.6 [facility] Comment on above: Performed By: #### P P #### [address] #### LUPANTCOAG #### [facility] , dPT Confirm Ratio 1.06 Normal 0.00-1.34 [facility] Comment on above: Performed By: #### P P #### [address] #### LUPANTCOAG #### [facility] , DRVVT Lupus 37.0 Normal 0.0-47.0 [facility] Comment on above: Performed By: #### P P #### [address] #### LUPANTCOAG #### [facility] , Interpretation Comment: Normal . [facility] Comment on above: Result Comment: No l upus anticoagulant was detected. Performed at: - [facility] [id number] Suspender Cutter: Jim Gong MD, Phone: [phone] PERFORMED BY: [place] [address] PATHOLOGIST SECRETARY OF STATE PAZ RUTHERFORD M.D. Performed By: #### P P #### [address] #### LUPANTCOAG #### [facility] , PTT-LA 26.8 Normal 0.0-43.5 [facility] Comment on above: Performed By: #### P P #### [place] [address] [place] #### LUPANTCOAG #### [facility] , Thrombin Time 19.0 Normal 0.0-23.0 [facility] Comment on above: Performed By: #### P P #### [address] [place] [address] [place] #### LUPANTCOAG #### [facility] , Lupus anticoagulant [Interpr etation] in Platelet poor plasmaOrdered By: Everett Valdez on 12-16-2024 Lupus anticoagulant (PPP) [Interp] Lupus anticoagulant [Interpretation] in Platelet poor plasma . [facility] Comment on above: No lupus anticoagula nt was detected.Performed at: [facility] [address] [id number] Director: Jim Gong MD, Phone: [phone] Lymphocytes Auto (Bld) [#/Vo l]Ordered By: Everett Valdez on 12-16-2024 Lymphocytes (Bld) [#/Vol] Lymphocytes [#/volume] in Blood by Automated count 1.00-4.8 [facility] Lymphocytes/100 WBC Auto (Bl d)Ordered By: Everett Valdez on 12-16-2024 Lymphocytes/100 WBC (Bld) Lymphocytes/100 leukocytes in Blood by Automated count . [facility] MCH Auto (RBC) [Entitic mass ]Ordered By: Everett Valdez on 12-16-2024 MCH (RBC) [Entitic mass] MCH [Entitic mass] by Automated count 24.7-34.3 [facility] MCHC Auto (RBC) [Mass/Vol]Or dered By: Everett Valdez on 12-16-2024 MCHC (RBC) [Mass/Vol] MCHC [Mass/volume] by Automated count 32.0-35.0 [facility] MCV Auto (RBC) [Entitic vol] Ordered By: Everett Valdez on 12-16-2024 MCV (RBC) [Entitic vol] MCV [Entitic volume] by Automated count 80-100 [facility] Monocytes Auto (Bld) [#/Vol] Ordered By: Everett Valdez on 12-16-2024 Monocytes (Bld) [#/Vol] Automated blood monocyte count 0.0-0.8 [facility] Monocytes/100 WBC Auto (Bld) Ordered By: Everett Valdez on 12-16-2024 Monocytes/100 WBC (Bld) Automated monocyte % . [facility] Mucus [Presence] in Urine by AutomatedOrdered By: Everett Valdez on 12-16-2024 Mucus Auto Ql (U) Mucus [Presence] in Urine by Automated Abnormal [facility] Neutrophils Auto (Bld) [#/Vo l]Ordered By: Everett Valdez on 12-16-2024 Neutrophils (Bld) [#/Vol] Neutrophils [#/volume] in Blood by Automated count 1.8-7.7 [facility] Neutrophils/100 WBC Auto (Bl d)Ordered By: Everett Valdez on 12-16-2024 Neutrophils/100 WBC (Bld) Automated neutrophil % . [facility] Nitrite Test strip Ql (U)Ord ered By: Everett Valdez on 12-16-2024 Nitrite Ql (U) Nitrite [Presence] i n Urine by Test strip Negative [facility] No Panel InformationOrdered By: Everett Valdez on 12-16-2024 Estimated GFR (CKD-EPI) > 60.0 mL/Min [facility] Creatinine Clearance (Chem N/A [facility] Protein Electrophoresis M-Juan Miguel Not observed g/dL Not Observed [facility] Protein Electrophoresis Note Comment . [facility] Comment on above: Protein electrophore sis scan will follow via computer,mail, or mortarman delivery.Performed at: [address] Director: Erick Neville PhD, Phone: [phone] Urine Random Prot Electrophor Note Comment . [facility] Comment on above: Protein electrophore sis scan will follow via computer,mail, or mortarman delivery. Nucleated erythrocytes [Pres ence] in Blood by Automated countOrdered By: Everett Valdez on 12-16-2024 Nucleated RBC Auto Ql (Bld) Nucleated erythrocytes [Presence] in Blood by Automated count 0-0.5 [facility] Plasma thrombin timeOrdered By: Everett Valdez on 12-16-2024 Thrombin time Coag (PPP) [Time] TT plas 0.0-23.0 [facility] Platelet mean volume Auto (B ld) [Entitic vol]Ordered By: Everett Valdez on 12-16-2024 Platelet mean volume (Bld) [Entitic vol] Platelet mean volume [Entitic volume] in Blood by Automated count 6.3-10.7 [facility] Platelet poor plasma ratio o f lupus anticoagulant-sensitive activated partial thromboOrdered By: Everett Valdez on 12-16-2024 aPTT.lupus sensitive.excess phospholipid actual/normal Coag (PPP) [Relative time] Platelet poor plasma ratio of lupus anticoagulant-sensitiv e activated partial thrombo 0.0-47.6 [facility] Platelets Auto (Bld) [#/Vol] Ordered By: Everett Valdez on 12-16-2024 Platelets (Bld) [#/Vol] Platelets [#/volume] in Blood by Automated count 150-450 [facility] Potassium [Moles/volume] in Serum or PlasmaOrdered By: Everett Valdez on 12-16-2024 Potassium [Moles/Vol] Potassium [Moles/volume] in Serum or Plasma 3.5-5.1 [facility] Protein Electro, Random Urin destinee 12-16-2024 Albumin, Urine 34.3 % Normal . [facility] Comment on above: Performed By: #### P P #### [place] [address] [place] #### LUPANTCOAG #### [facility] , Fcbsr-4-Gdesutry, Urine 2.2 % Normal . [facility] Comment on above: Performed By: #### P P #### [place] [address] [place] #### LUPANTCOAG #### [facility] , Ptjpx-5-Lpjtlsvw, Urine 18.4 % Normal . [facility] Comment on above: Performed By: #### P P #### [place] [address] [place] #### LUPANTCOAG #### [facility] , Beta Globulin, Urine 30.5 % Normal . [facility] Comment on above: Performed By: #### P P #### [place] [address] [place] #### LUPANTCOAG #### [facility] , Gamma Globulin, Urine 14.7 % Normal . [facility] Comment on above: Performed By: #### P P #### [place] [address] [place] #### LUPANTCOAG #### [facility] , M-Juan Miguel % Not Observed Normal Not Observed [facility] Comment on above: Performed By: #### P P #### [place] [address] [place] #### LUPANTCOAG #### [facility] , Please Note: Comment Normal . The [facility] Comment on above: Result Comment: Prot ein electrophoresis scan will follow via computer, mail, or mortarman delivery. PERFORMED BY: [place] [address] PATHOLOGIST SECRETARY OF STATE PAZ RUTHERFORD M.D. Performed By: #### P P #### [address] #### LUPANTCOAG #### [facility] , Protein (U) [Mass/Vol] 9.0 mg/dL Normal Not Estab. [facility] Comment on above: Performed By: #### P P #### [address] #### LUPANTCOAG #### [facility] , Protein Electrophoresis, Ser umon 12-16-2024 Albumin [Mass/Vol] 3.8 g/dL Normal 2.9-4.4 The [facility] Comment on above: Performed By: #### C BC #### [address] Albumin/Globulin [Mass ratio] 1.4 {ratio} Normal 0.7-1.7 [facility] Comment on above: Performed By: #### C BC #### [address] Osbse-8-Refxyfwf 0.2 g/dL Normal 0.0-0.4 [facility] Comment on above: Performed By: #### C BC #### [address] Ryyfi-1-Omyotwte 0.6 g/dL Normal 0.4-1.0 [facility] Comment on above: Performed By: #### C BC #### [address] Beta Globulin 1.1 g/dL Normal 0.7-1.3 [facility] Comment on above: Performed By: #### C BC #### [address] Gamma Globulin 0.8 g/dL Normal 0.4-1.8 [facility] Comment on above: Performed By: #### C BC #### [address] Globulin (S) [Mass/Vol] 2.7 g/dL Normal 2.2-3.9 [facility] Comment on above: Performed By: #### C BC #### [address] M-Juan Miguel Not Observed Normal Not Observed [facility] Comment on above: Performed By: #### C BC #### [address] Protein [Mass/Vol] 6.5 g/dL Normal 6.0-8.5 [facility] Comment on above: Performed By: #### C BC #### [address] SPE-Note Comment Normal . [facility] Comment on above: Result Comment: Prot ein electrophoresis scan will follow via computer, mail, or mortarman delivery. Performed at: [facility] [address] [id number] Suspender Cutter: Erick Neville PhD, Phone: [phone] Performed By: #### C BC #### [address] Protein Test strip (U) [Mass /Vol]Ordered By: Everett Valdez on 12-16-2024 Protein (U) [Mass/Vol] Protein [Mass/volume] in Urine by Test strip Negative [facility] Protein [Mass/volume] in Ser um or PlasmaOrdered By: Everett Valdez on 12-16-2024 Protein [Mass/Vol] Protein [Mass/volume ] in Serum or Plasma 6.0-8.5 [facility] Prothrombin time (PT)Ordered By: Everett Valdez on 12-16-2024 PT Coag (PPP) [Time] Prothrombin time (PT) 9.0- 12.9 [facility] Comment on above: A hematocrit value g reater than 55% may lead to inaccurate results in coagulation testing. Patients having hematocrit values >55% require a special collection tube for coagulation studies. Please contact the laboratory at [phone] for redraw instructions. RBC Auto (Bld) [#/Vol]Ordere d By: Everett Valdez on 12-16-2024 RBC (Bld) [#/Vol] Erythrocytes [#/volume] in Blood by Automated count 3.60-5.00 [facility] RPR w/rfx to Quant TP Abson 12-16-2024 RPR, Rfx Quant RPR Non-Reactive Normal Non Reactive [facility] Comment on above: Result Comment: Perf ormed at: - [facility] [address] [id number] Suspender Cutter: Erick Neville PhD, Phone: [phone] PERFORMED BY: [place] [address] PATHOLOGIST SECRETARY OF STATE PAZ RUTHERFORD M.D. Performed By: #### P P #### [address] #### LUPANTCOAG #### [facility] , Screening dilute Jamie's v iper venom time (DRVVT) with reflex to confirmatory testOrdered By: Everett Valdez on 12-16-2024 dRVVT Coag (PPP) [Time] Screening dilute Jamie's viper venom time (DRVVT) with reflex to confirmatory test 0.0-47.0 [facility] Screening lupus anticoagulan t-sensitive activated partial thromboplastin time (aPTT)Ordered By: Everett Valdez on 12-16-2024 aPTT.lupus sensitive Coag (PPP) [Time] Screening lupus anticoagulant-sensitiv e activated partial thromboplastin time (aPTT) 0.0-43.5 [facility] Serum RPR testOrdered By: Dori Valdez on 12-16-2024 Reagin Ab RPR Ql (S) Reagin Ab [Presence ] in Serum by RPR Non Reactive [facility] Comment on above: Performed at: [facility] [address] Director: Erick Neville PhD, Phone: [phone] Serum aldolase measurementOr dered By: Everett Valdez on 12-16-2024 Aldolase 13.5 U/L High 3.3-10.3 [facility] Comment on above: Performed at: [facility] [id number] [place], [place] [address]Lab Director: Erick Neville PhD, Phone: [phone] Result Comment: Perf ormed at: [facility] [place] [address] Suspender Cutter: Erick Neville PhD, Phone: [phone] PERFORMED BY: [place] [address] PATHOLOGIST SECRETARY OF STATE PAZ RUTHERFORD M.D. Performed By: #### P P #### [place] [address] [place] #### LUPANTCOAG #### [facility] , Serum globulin measurement ( mass/volume)Ordered By: Everett Valdez on 12-16-2024 Globulin (S) [Mass/Vol] Serum globulin measurement (mass/volume) 2.2-3.9 [facility] Serum homogeneous pattern an tinuclear antibody (CHUYITA) titerOrdered By: Everett Valdez on 12-16-2024 Homogenous nuclear Ab pattern (S) [Titer] Serum homogeneous pattern antinuclear antibody (CHUYITA) titer [facility] Serum immunofixation electro phoresisOrdered By: Everett Valdez on 12-16-2024 Serum Immunofixation Comment . [facility] Comment on above: No monoclonality det ected. Serum nuclear antibody titer Ordered By: Everett Valdez on 12-16-2024 Nuclear Ab (S) [Titer] Serum nuclear antibody titer . [facility] Comment on above: Negative <1:80 Borde rline 1:80 Positive >1:80ICAP nomenclature: [id number] more information about Hep-2 cell patterns useANApatterns.org, the official website for theInternational Consensus on Antinuclear Antibody (CHUYITA)Patterns (ICAP).Performed at: [employer] - [facility] [address] [id number] Director: Erick Neville PhD, Phone: [phone] Serum or plasma IgA measurem ent (mass/volume)Ordered By: Everett Valdez on 12-16-2024 IgA [Mass/Vol] IgA [Mass/volume] in Serum or Plasma 87-352 [facility] Serum or plasma IgG measurem ent (mass/volume)Ordered By: Everett Valdez on 12-16-2024 IgG [Mass/Vol] IgG [Mass/volume] in Serum or Plasma [phone] [facility] Serum or plasma IgM measurem ent (mass/volume)Ordered By: Everett Valdez on 12-16-2024 IgM [Mass/Vol] IgM [Mass/volume] in Serum or Plasma 26-217 [facility] Comment on above: Performed at: [employer] [facility] [address] [id number] Director: Erick Neville PhD, Phone: [phone] Serum or plasma albumin ravinder urement (mass/volume)Ordered By: Everett Valdez on 12-16-2024 Albumin [Mass/Vol] Albumin [Mass/volume ] in Serum or Plasma 2.9-4.4 [facility] Serum or plasma albumin/glob ulin mass ratioOrdered By: Everett Valdez on 12-16-2024 Albumin/Globulin [Mass ratio] Serum or plasma albumin/globulin mass ratio 0.7-1.7 [facility] Serum or plasma alpha 1 glob ulin measurement by electrophoresis (mass/volume)Ordered By: Everett Valdez on 12-16-2024 Alpha 1 globulin Elph [Mass/Vol] Serum or plasma alpha 1 globulin measurement by electrophoresis (mass/volume) 0.0-0.4 [facility] Serum or plasma alpha 2 glob ulin measurement by electrophoresis (mass/volume)Ordered By: Everett Valdez on 12-16-2024 Alpha 2 globulin Elph [Mass/Vol] Serum or plasma alpha 2 globulin measurement by electrophoresis (mass/volume) 0.4-1.0 [facility] Serum or plasma anion gap de terminationOrdered By: Everett Valdez on 12-16-2024 Anion gap [Moles/Vol] Serum or plasma an ion gap determination 6.0-15.0 [facility] Serum or plasma beta globuli n measurement by electrophoresis (mass/volume)Ordered By: Everett Valdez on 12-16-2024 Beta globulin Elph [Mass/Vol] Serum or plasma beta globulin measurement by electrophoresis (mass/volume) 0.7-1.3 [facility] Serum or plasma chromatin an tibody assay (units/volume)Ordered By: Everett Valdez on 12-16-2024 Chromatin Ab Qn Serum or plasma chromatin antibody assay (units/volume) 0.0-0.9 [facility] Comment on above: Performed at: [facility] [id number] Director: Erick Neville PhD, Phone: [phone] Serum or plasma complement C 3 measurement (mass/volume)Ordered By: Everett Valdez on 12-16-2024 Complement C3 [Mass/Vol] Serum or plasma complement C3 measurement (mass/volume) 82-167 [facility] Comment on above: Performed at: [facility] [place], [place] [id number] Director: Erick Neville PhD, Phone: [phone] Serum or plasma complement C 4 measurement (mass/volume)Ordered By: Everett Valdez on 12-16-2024 Complement C4 [Mass/Vol] Serum or plasma complement C4 measurement (mass/volume) 12-38 [facility] Serum or plasma gamma globul in measurement by electrophoresis (mass/volume)Ordered By: Everett Valdez on 12-16-2024 Gamma globulin Elph [Mass/Vol] Serum or plasma gamma globulin measurement by electrophoresis (mass/volume) 0.4-1.8 [facility] Serum or plasma thyroglobuli n antibody assay (units/volume)Ordered By: Everett Valdez on 12-16-2024 Thyroglobulin Ab Qn Serum or plasma thyroglobulin antibody assay (units/volume) 0.0-0.9 [facility] Comment on above: Thyroglobulin Antibo dy measured by AppsindepMethodologyIt should be noted that the presence of thyroglobulinantibodies may not be pathogenic nor diagnostic, especiallyat very low levels. The assay public policy associate has found thatfour percent of individuals without evidence of thyroiddisease or autoimmunity will have positive TgAb levels upto 4 IU/mL.Performed at: [email or web address]) [place], [place] [id number] Director: Erick Neville PhD, Phone: [phone] Serum or plasma thyroperoxid ase antibody assay (units/volume)Ordered By: Everett Valdez on 12-16-2024 TPO Ab Qn Serum or plasma thyroperoxidase antibody assay (units/volume) 0-34 [facility] Comment on above: Performed at: [facility] [address] [id number] Director: Erick Neville PhD, Phone: [phone] Sodium [Moles/volume] in Ser um or PlasmaOrdered By: Everett Valdez on 12-16-2024 Sodium [Moles/Vol] Sodium [Moles/volume ] in Serum or Plasma 136-145 [facility] Specific gravity Test strip (U) [Rel density]Ordered By: Everett Valdez on 12-16-2024 Specific gravity (U) [Rel density] Specific gravity of Urine by Test strip 1.001-1.030 [facility] Thyroid Peroxidase Antibodie son 12-16-2024 Thyroid Peroxidase Antibodies 10 [IU]/mL Normal 0-34 [facility] Comment on above: Result Comment: Perf ormed at: CB - [facility] [address] [id number] Suspender Cutter: Erick Neville PhD, Phone: [phone] Performed By: #### P P #### [facility] [address] [place] [address] #### LUPANTCOAG #### [facility] , Thyroid Stimulating Hormoneo n 12-16-2024 TSH Qn 1.48 m[IU]/L Normal 0.45-5.33 The [facility] Comment on above: Result Comment: PERF ORMED BY: [address] [place] [address] PATHOLOGIST SECRETARY OF STATE PAZ RUTHERFORD M.D. Performed By: #### E SR, TSH3, CK, ADDONUAPLUS, CBC, CRP, CMP, T4F #### [facility] [address] [place] [address] #### RPR W RFX, ALDOLASE, GUZMAN,URINE, UPE [place] #### [facility] , Thyrotropin [Units/volume] i n Serum or PlasmaOrdered By: Everett Valdez on 12-16-2024 TSH Qn Thyrotropin [Units/volume] in Serum or Plasma 0.45-5.33 [facility] Thyroxine (T4) free [Mass/vo lume] in Serum or PlasmaOrdered By: Everett Valdez on 12-16-2024 Free T4 [Mass/Vol] Thyroxine (T4) free [Mass/volume] in Serum or Plasma 0.61-1.12 [facility] Total hemolytic complement C H50 assayOrdered By: Everett Valdez on 12-16-2024 Total Complement (CH50) >60 U/mL >41 [facility] Comment on above: Age Male Female 3 [...] to determine out of range values.Performed at: [facility] [place], [place] [id number] Director: Erick Neville PhD, Phone: [phone] Urea nitrogen [Mass/volume] in Serum or PlasmaOrdered By: Everett Valdez on 12-16-2024 Urea nitrogen [Mass/Vol] Urea nitrogen [Mass/volume] in Serum or Plasma 7 [facility] Urine alpha 1 globulin/total protein by electrophoresisOrdered By: Everett Valdez on 12-16-2024 Alpha 1 globulin Elph (U) [Mass fraction] Urine alpha 1 globulin/total protein by electrophoresis . [facility] Urine alpha 2 globulin/total protein ratio by electrophoresisOrdered By: Everett Valdez on 12-16-2024 Alpha 2 globulin Elph (U) [Mass fraction] Urine alpha 2 globulin/total protein ratio by electrophoresis . [facility] Urine beta globulin measurem ent by electrophoresis (mass/volume)Ordered By: Everett Valdez on 12-16-2024 Beta globulin Elph (U) [Mass/Vol] Urine beta globulin measurement by electrophoresis (mass/volume) . [facility] Urine protein measurement (m ass/volume)Ordered By: Everett Valdez on 12-16-2024 Protein (U) [Mass/Vol] Protein [Mass/volume] in Urine Not Estab. [facility] Urobilinogen Test strip (U) [Mass/Vol]Ordered By: Everett Valdez on 12-16-2024 Urobilinogen (U) [Mass/Vol] Urobilinogen [Mass/volume] in Urine by Test strip Normal [facility] WBC Auto (Bld) [#/Vol]Ordere d By: Everett Valdez on 12-16-2024 WBC (Bld) [#/Vol] Leukocytes [#/volume ] in Blood by Automated count 3.8-11.6 [facility] aPTT in Platelet poor plasma by Coagulation assayOrdered By: Everett Valdez on 12-16-2024 aPTT Coag (PPP) [Time] Activated partial thromboplastin time (aPTT) in platelet poor plasma by coagulation a 25.1-36.5 [facility] Comment on above: A hematocrit value g reater than 55% may lead to inaccurate results in coagulation testing. Patients having hematocrit values >55% require a special collection tube for coagulation studies. Please contact the laboratory at [phone] for redraw instructions. aPTT.lupus sensitive/aPTT.hattie pus sensitive W excess phospholipid (screen to confirm raOrdered By: Everett Valdez on 12-16-2024 aPTT.lupus sensitive/aPTT.lupus sensitive W excess phospholipid Coag (PPP) [Ratio] aPTT.lupus sensitive/aPTT.lupus sensitive W excess phospholipid (screen to confirm ra 0.00-1.34 [facility] pH Test strip (U)Ordered By: Everett Valdez on 12-16-2024 pH (U) pH of Urine by Test strip 5.0-9.0 [facility] HBV surface Ab IA Qnon 12-11 Anti HBs quant. >500.00 Normal [facility] Comment on above: Result Comment: NOTE Vaccinated: >=10.00 mIU/mL, Positive (Immune) Unvaccinated: <10.00 mIU/mL, Negative (Not Immune) Interpretive values have changed due to implementation of a new method. Values run higher than previous method. Performed By: #### 3 5275-7, 6476-6, 8014-3, 02947-4, 5193-8 #### [facility] ([id number]) [address] [place] [address], [address] [address] MeV IgG IA Ql (S)on 12-11-19 25 RUBEOLA AB SCREEN 4.1 AI High <0.9 [facility] Comment on above: Result Comment: POSI TIVE: Antibody(IgG) detected. Indicates previous exposure to rubeola virus and immunity. Performed By: #### 3 5275-7, 6476-6, 8014-3, 09267-3, 5193-8 #### [facility] ([id number]) [address] [place] [address], [address] [place] [address] MuV IgG IA Ql (S)on 12-11-19 25 MUMPS VIRUS IgG 2.1 AI High <0.9 [facility] Comment on above: Result Comment: Interpretation-------- <0.9 Negative 0.9 - 1.0 Equivocal >1.0 Positive Performed By: #### 3 5275-7, 6476-6, 8014-3, 47183-5, 5193-8 #### [facility] ([id number]) [address], [address] [place] [address] Rubella virus IgG Qn (S)on 0 12-11-2024 RUBELLA IgG 19 IU/mL Normal [facility] Comment on above: Result Comment: Interpretation-------- <8 NEGATIVE-considered Not Immune 8-9 EQUIVOCAL-consider retesting with new specimen >9 POSITIVE-considered Immune Performed By: #### 3 5275-7, 6476-6, 8014-3, 95613-4, 5193-8 #### [facility] ([id number]) [address], [address] [place] [address] VZV IgG IA Ql (S)on 12-11-19 VARICELLA IgG >8.0 High <0.9 [facility] Comment on above: Result Comment: Interpretation-------- <0.9 Negative 0.9 - 1.0 Equivocal >1.0 Positive Performed By: #### 3 5275-7, 6476-6, 8014-3, 83966-1, 5193-8 #### [facility] ([id number]) [address], [address] [place] [address] X-ray reportOrdered By: Brett Bullard on 11-20-2024 Study report [facility] Main [address] [address] XRay Report Signed Patient: Mary Leal MR#: [id number] : 1970 Acct:[id number] Age/Sex: 54 / F ADM Date: 5 [...] Andres Bullard M.D.11/20/2024 10:02 PM Dictation Location: [place] [address] Transcribed By: [facility] 11/20/242201 Dictated By: Andres Bullard DO 11/20/242158 Signed By: 11/20/242201 [facility] XR shoulder BI min 2Von 11-06 XR shoulder BI min 2V [facility] Main [address] [address] XRay Report Signed Patient: Mary Leal MR#: [id number] 863 : 1970 Acct:[id number] Age/Sex: 54 / F ADM Date: 11/20/24 [...] 10:02 PM Dictation Location: RADIO-PC-20 Transcribed By: [facility] 11/20/242201 Dictated By: Andres Bullard DO 11/20/242158 Signed By: 11/20/242201 Normal [facility] NM gastric emptying studyon 11-14-2024 NM gastric emptying study [facility] [address] Nuclear Medicine Report Signed Patient: Mary Leal MR#: [id number] 863 : 1970 Acct:[id number] Age/Sex: 54 / F ADM Date: 11/14/24 Loc: [place] Room: Type: [facility] Attending Dr: Padmaja Llamas MD Copies to: Quinton Melendez Jr, DO Na Li, MD Ordering Provider: Padmaja Llamas MD Date [...] Dictation Location: RADIO-PC-19 Transcribed By: MARIO 11/14/24 1354 Dictated By: Quinton Melendez Jr, DO 11/14/24 1354 Signed By: 11/14/24 1354 Normal [facility] Basic Metabolic Panelon 12-1 Anion gap [Moles/Vol] 9.4 mmol/L Normal 6.0-15.0 [facility] Comment on above: Performed By: #### B MP #### [address] Calcium [Mass/Vol] 9.0 mg/dL Normal 8.6-10.3 [facility] Comment on above: Performed By: #### B MP #### [address] Chloride [Moles/Vol] 107 mmol/L Normal 98-107 [facility] Comment on above: Performed By: #### B MP #### [address] CO2 [Moles/Vol] 27.3 mmol/L Normal 21.0-31.0 [facility] Comment on above: Performed By: #### B MP #### [address] Creatinine [Mass/Vol] 0.69 mg/dL Normal 0.60-1.20 [facility] Comment on above: Performed By: #### B MP #### [address] Creatinine Clr Calc Pharmacy 91.21 Normal [facility] Comment on above: Result Comment: PERF ORMED BY: [place] [address] PATHOLOGIST [employer] PAZ RUTHERFORD M.D. Performed By: #### B MP #### [place] [address] [place] GFR/1.73 sq M.predicted MDRD (S/P/Bld) [Vol rate/Area] mL/min/{1.73_m2} Normal [facility] Comment on above: Performed By: #### B MP #### [place] [address] [place] Glucose [Mass/Vol] 93 mg/dL Normal 70-100 [facility] Comment on above: Result Comment: [place] Glucose Reference Range is dependent on time and content of last meal. Glucose of more than 200 mg/dL in a nonstressed, ambulatory subject supports the diagnosis of Diabetes Mellitus. ADA recommended reference range Performed By: #### B MP #### [facility] [address] Potassium [Moles/Vol] 3.7 mmol/L Normal 3.5-5.1 [facility] Comment on above: Performed By: #### B MP #### [address] Sodium [Moles/Vol] 140 mmol/L Normal 136-145 [facility] Comment on above: Performed By: #### B MP #### [facility] [address] Urea nitrogen [Mass/Vol] 14 mg/dL Normal 7-25 [facility] Comment on above: Performed By: #### B MP #### [address] Basophils Auto (Bld) [#/Vol] Ordered By: Cullen Christianson on 10-24-2024 Basophils (Bld) [#/Vol] Automated basophil count 0.0-0.2 [facility] Basophils/100 WBC Auto (Bld) Ordered By: Cullen Christianson on 10-24-2024 Basophils/100 WBC (Bld) Automated basophil % . [facility] Calcium [Mass/volume] in Ser um or PlasmaOrdered By: Cullen Christianson on 10-24-2024 Calcium [Mass/Vol] Calcium [Mass/volume ] in Serum or Plasma 8.6-10.3 [facility] Carbon dioxide, total [Moles /volume] in Serum or PlasmaOrdered By: Cullen Christianson on 10-24-2024 CO2 [Moles/Vol] Carbon dioxide, tota l [Moles/volume] in Serum or Plasma 21.0-31.0 [facility] Chloride [Moles/volume] in S jay or PlasmaOrdered By: Cullen Christianson on 10-24-2024 Chloride [Moles/Vol] Chloride [Moles/volume] in Serum or Plasma 98-107 [facility] Complete Blood Count Auto Di ffon 10-24-2024 Basophils (Bld) [#/Vol] 0.1 10*3/uL Normal 0.0-0.2 [facility] Comment on above: Result Comment: PERF ORMED BY: [place] [address] PATHOLOGIST [employer] PAZ RUTHERFORD M.D. Performed By: #### C BC #### [address] Basophils/100 WBC (Bld) 1.1 % Normal . [facility] Comment on above: Performed By: #### C BC #### [address] Eosinophils (Bld) [#/Vol] 0.2 10*3/uL Normal 0.0-0.45 [facility] Comment on above: Performed By: #### C BC #### [address] Eosinophils/100 WBC (Bld) 3.7 % Normal . [facility] Comment on above: Performed By: #### C BC #### [address] Erythrocyte distribution width (RBC) [Ratio] 13.1 % Normal 11.9-15.3 [facility] Comment on above: Performed By: #### C BC #### [address] Hematocrit (Bld) [Volume fraction] 37.9 % Normal 34.0-46.4 [facility] Comment on above: Performed By: #### C BC #### [address] Hemoglobin (Bld) [Mass/Vol] 12.8 g/dL Normal 11.8-15.4 [facility] Comment on above: Performed By: #### C BC #### [address] Lymphocytes (Bld) [#/Vol] 1.5 10*3/uL Normal 1.00-4.8 [facility] Comment on above: Performed By: #### C BC #### [address] Lymphocytes/100 WBC (Bld) 29.9 % Normal . [facility] Comment on above: Performed By: #### C BC #### [address] MCH (RBC) [Entitic mass] 28.7 pg Normal 24.7-34.3 [facility] Comment on above: Performed By: #### C BC #### [address] MCV (RBC) [Entitic vol] 85.1 fL Normal 80-100 [facility] Comment on above: Performed By: #### C BC #### [address] Mean Corpuscular HGB Conc 33.8 g/dL Normal 32.0-35.0 [facility] Comment on above: Performed By: #### C BC #### [address] Monocytes (Bld) [#/Vol] 0.4 10*3/uL Normal 0.0-0.8 [facility] Comment on above: Performed By: #### C BC #### [address] Monocytes/100 WBC (Bld) 7.8 % Normal . [facility] Comment on above: Performed By: #### C BC #### [address] Neutrophils (Bld) [#/Vol] 2.9 10*3/uL Normal 1.8-7.7 [facility] Comment on above: Performed By: #### C BC #### [address] Neutrophils/100 WBC (Bld) 57.5 % Normal . [facility] Comment on above: Performed By: #### C BC #### [facility] [address] NRBC% 0.1 /100{WBC} Normal 0-0.5 [facility] Comment on above: Performed By: #### C BC #### [facility] [address] Platelet mean volume (Bld) [Entitic vol] 7.1 fL Normal 6.3-10.7 The [facility] Comment on above: Performed By: #### C BC #### [facility] [address] Platelets (Bld) [#/Vol] 307 10*3/uL Normal 150-450 [facility] Comment on above: Performed By: #### C BC #### [facility] [address] RBC (Bld) [#/Vol] 4.45 10*6/uL Normal 3.60-5.[address] [facility] Comment on above: Performed By: #### C BC #### [facility] [address] [place] [address] [place] WBC (Bld) [#/Vol] 5.0 10*3/uL Normal 3.8-11.6 [facility] Comment on above: Performed By: #### C BC #### [address] Creatinine [Mass/volume] in Serum or PlasmaOrdered By: Cullen Christianson on 10-24-2024 Creatinine [Mass/Vol] Creatinine [Mass/volume] in Serum or Plasma 0.60-1.20 [facility] Eosinophils Auto (Bld) [#/Vo l]Ordered By: Cullen Christianson on 10-24-2024 Eosinophils (Bld) [#/Vol] Automated eosinophil count 0.0-0.45 [facility] Eosinophils/100 WBC Auto (Bl d)Ordered By: Cullen Christianson on 10-24-2024 Eosinophils/100 WBC (Bld) Automated eosinophil % . [facility] Erythrocyte distribution wid th Auto (RBC) [Ratio]Ordered By: Cullen Christianson on 10-24-2024 Erythrocyte distribution width (RBC) [Ratio] Erythrocyte distribution width [Ratio] by Automated count 11.9-15.3 [facility] Glucose [Mass/volume] in Ser um or PlasmaOrdered By: Cullen Christianson on 10-24-2024 Glucose [Mass/Vol] Glucose [Mass/volume ] in Serum or Plasma 70-100 [facility] Comment on above: ADA recommended refe rence rangeRandom Glucose Reference Range is dependent on time and content of last meal. Glucose of more than 200 mg/dL in a nonstressed, ambulatory subject supports the diagnosis of Diabetes Mellitus. Hematocrit Auto (Bld) [Volum e fraction]Ordered By: Cullen Christianson on 10-24-2024 Hematocrit (Bld) [Volume fraction] Hematocrit [Volume Fraction] of Blood by Automated count 34.0-46.4 [facility] Hemoglobin [Mass/volume] in BloodOrdered By: Cullen Christianson on 10-24-2024 Hemoglobin (Bld) [Mass/Vol] Hemoglobin [Mass/volume] in Blood 11.8-15.4 [facility] Leukocytes [#/volume] correc herbert for nucleated erythrocytes in Blood by Automated counOrdered By: Cullen Christianson on 10-24-2024 WBC corrected for nucl RBC Auto (Bld) [#/Vol] Leukocytes [#/volume] corrected for nucleated erythrocytes in Blood by Automated coun 3.8-11.6 [facility] Lymphocytes Auto (Bld) [#/Vo l]Ordered By: Cullen Christianson on 10-24-2024 Lymphocytes (Bld) [#/Vol] Lymphocytes [#/volume] in Blood by Automated count 1.00-4.8 [facility] Lymphocytes/100 WBC Auto (Bl d)Ordered By: Cullen Christianson on 10-24-2024 Lymphocytes/100 WBC (Bld) Lymphocytes/100 leukocytes in Blood by Automated count . [facility] MCH Auto (RBC) [Entitic mass ]Ordered By: Cullen Christianson on 10-24-2024 MCH (RBC) [Entitic mass] MCH [Entitic mass] by Automated count 24.7-34.3 [facility] MCHC Auto (RBC) [Mass/Vol]Or dered By: Cullen Christianson on 10-24-2024 MCHC (RBC) [Mass/Vol] MCHC [Mass/volume] by Automated count 32.0-35.0 [facility] MCV Auto (RBC) [Entitic vol] Ordered By: Cullen Christianson on 10-24-2024 MCV (RBC) [Entitic vol] MCV [Entitic volume] by Automated count 80-100 [facility] Monocytes Auto (Bld) [#/Vol] Ordered By: Cullen Christianson on 10-24-2024 Monocytes (Bld) [#/Vol] Automated blood monocyte count 0.0-0.8 [facility] Monocytes/100 WBC Auto (Bld) Ordered By: Cullen Christianson on 10-24-2024 Monocytes/100 WBC (Bld) Automated monocyte % . [facility] Neutrophils Auto (Bld) [#/Vo l]Ordered By: Cullen Christianson on 10-24-2024 Neutrophils (Bld) [#/Vol] Neutrophils [#/volume] in Blood by Automated count 1.8-7.7 [facility] Neutrophils/100 WBC Auto (Bl d)Ordered By: Cullen Christianson on 10-24-2024 Neutrophils/100 WBC (Bld) Automated neutrophil % . [facility] No Panel InformationOrdered By: Cullen Christianson on 10-24-2024 Estimated GFR (CKD-EPI) > 60.0 mL/Min [facility] Creatinine Clearance (Chem 91.21 [facility] Nucleated erythrocytes [Pres ence] in Blood by Automated countOrdered By: Cullen Christianson on 10-24-2024 Nucleated RBC Auto Ql (Bld) Nucleated erythrocytes [Presence] in Blood by Automated count 0-0.5 [facility] Platelet mean volume Auto (B ld) [Entitic vol]Ordered By: Cullen Christianson on 10-24-2024 Platelet mean volume (Bld) [Entitic vol] Platelet mean volume [Entitic volume] in Blood by Automated count 6.3-10.7 [facility] Platelets Auto (Bld) [#/Vol] Ordered By: Cullen Christianson on 10-24-2024 Platelets (Bld) [#/Vol] Platelets [#/volume] in Blood by Automated count 150-450 [facility] Potassium [Moles/volume] in Serum or PlasmaOrdered By: Cullen Christianson on 10-24-2024 Potassium [Moles/Vol] Potassium [Moles/volume] in Serum or Plasma 3.5-5.1 [facility] RBC Auto (Bld) [#/Vol]Ordere d By: Cullen Christianson on 10-24-2024 RBC (Bld) [#/Vol] Erythrocytes [#/volume] in Blood by Automated count 3.60-5.00 [facility] Serum or plasma anion gap de terminationOrdered By: Cullen Christianson on 10-24-2024 Anion gap [Moles/Vol] Serum or plasma an ion gap determination 6.0-15.0 [facility] Sodium [Moles/volume] in Ser um or PlasmaOrdered By: Cullen Christianson on 10-24-2024 Sodium [Moles/Vol] Sodium [Moles/volume ] in Serum or Plasma 136-145 [facility] Urea nitrogen [Mass/volume] in Serum or PlasmaOrdered By: Cullen Christianson on 10-24-2024 Urea nitrogen [Mass/Vol] Urea nitrogen [Mass/volume] in Serum or Plasma 7-25 [facility] WBC Auto (Bld) [#/Vol]Ordere d By: Cullen Christianson on 10-24-2024 WBC (Bld) [#/Vol] Leukocytes [#/volume ] in Blood by Automated count 3.8-11.6 [facility] Boyd 10-23-2024 L -- ---- Specimen: [id number] Received: 10/24/24 Status: CASEY Pastrana Num: [id number] Spec Type: Surgical Subm Dr: Dipti Acevedo,DO Tissues: A Vaginal mucosa-other than incidental (GRANULATION TISSUE) Procedures: ASHLEIGH, Gross/Micro L4 ---- Age/ Patient Sex Location Account Attending Physician ---- Mary Leal 54/F [place] [id number] Dipti AcevedoDO ---- SPEC NUM: [id number] RECD: 10/24/24 STATUS: CASEY TATUM NUM: [id number] BOAZ: 10/23/24- [facility] DR: Dipti Acevedo DO ENTERED: 10/24/[address] [facility] [address]: KAYLIN TYPE: Surgical DEPT: S ENTERED BY: [id number] RECV BY: [id number] ORDERED: HE, Gross/Micro L4 ORDERED: HE, Gross/Micro [...] submitted in a single cassette. (1, ns, [id number] 0126 A) LES ---- Specimen: [id number] Received: 10/24/24 Status: CASEY Pastrana Num: [id number] Spec Type: Surgical Subm Dr: Dipti Acevedo,DO Tissues: A Vaginal mucosa-other than incidental (GRANULATION TISSUE) Procedures: Praneeth SOTELO/Nadja Fisher ---- Patient: Mary Leal [id number] (Continued) ---- Specimen: [id number] Received: 10/24/24 (Continued) Signed (signature on file) Kiara Velasco MD 10/26/24 1126 ---- Specimen: [id number] Received: 10/24/24 Status: CASEY Pastrana Num: [id number] Spec Type: Surgical Subm Dr: Dipti Acevedo, Tissues: A Vaginal mucosa-other than incidental (GRANULATION TISSUE) Procedures: ASHLEIGH Gross/Micro L4 ---- Patient: Mary Leal [id number] (Continued) ---- Specimen: [id number] Received: 10/24/24 (Continued) Microscopic Description Microscopic examinations are performed supporting the above interpretation CPT Codes 74889 ---- ---- Specimen: [id number] Received: 10/24/24 Status: CASEY Pastrana Num: [id number] Spec Type: Surgical Subm Dr: Dipti Acevedo DO Tissues: A Vaginal mucosa-other than incidental (GRANULATION TISSUE) Procedures: HE, Gross/Micro L4 ---- Patient: Mary Leal Zoya [id number] (Continued) ---- Signed (signature on file) Kiara Velasco MD 10/26/24 1126 Normal [facility] MR cervical spine wo conon 1 12-11-2023 [place] [address] MRI Report Signed Patient: Mary Leal MR#: [id number] 863 : 1970 Acct:[id number] Age/Sex: 54 / F ADM Date: 10/10/24 Loc: [facility] Room: Type: [facility] Attending Dr: Anibal Medrano DO Copies to: [...] stenosis. This is unchanged. Impression dictated by: Howie Garcia M.D.10/10/2024 3:47 PM Dictation Location: [place] [address] Transcribed By: [facility] 10/10/24 1547 Dictated By: Howie Garcia II, MD 10/10/24 154 Signed By: 10/10/24 1547 Normal [facility] MR lumbar spine wo conon MR lumbar spine wo con [facility] [address] MRI Report Signed Patient: Mary Leal MR#: [id number] 863 : 1970 Acct:[id number] Age/Sex: 54 / F ADM Date: 10/10/24 Loc: [facility] Room: Type: [facility] Attending Dr: Monica IBARRA Copies to: FRED [...] No significant interval change. Impression dictated by: Howie Garcia M.D.10/10/2024 3:55 PM Dictation Location: [place] [address] Transcribed By: MARIO 10/10/24 1555 Dictated By: Howie Garcia II, MD 10/10/24 1547 Signed By: 10/10/24 1555 Normal [facility] XR pre/post mri xrayon 10-10 XR pre/post mri xray [facility] [place] [address] [place] [address] XRay Report Signed Patient: Mary Leal MR#: [id number] 863 : 1970 Acct:[id number] Age/Sex: 54 / F ADM Date: 10/10/24 Loc: [facility] Room: Type: [facility] Attending Dr: Anibal Medrano DO Copies to: [...] disc arthroplasty at C6-C7. Impression dictated by: Howie Garcia M.D.10/10/2024 3:58 PM Dictation Location: [facility]-- Transcribed By: MARIO 10/10/241557 Dictated By: Howie Garcia II, MD 10/10/241554 Signed By: 10/10/241557 Normal [facility] Urinalysis macro (dipstick) panel (U)on 09-04-2024 Bilirubin, UA Negative Negative - 4(70) +++ mg/dL [facility] Blood, UA Negative Negative - 50 Dvein/mcL [facility] Clarity, UA Clear [facility] Color, UA Yellow [facility] Glucose, UA Negative Negative - 2000(110) ++++ mg/dL [facility] Ketones, UA Negative Negative - 160(16) ++++ mg/dL [facility] Leukocytes, UA Negative Negative - 500+++ Aicha/mcL [facility] Nitrite, UA Negative Negative - Positive [facility] pH, UA 5 5 - 9 [facility] Protein, UA Negative Negative - 2000(20) ++++ mg/dL [facility] Spec Grav, UA 1.01 1 - 1.03 [facility] Urobilinogen, UA 0.2 0.2 - 12 mg/dL [facility] US ABDOMEN LIMITEDon 024 US ABDOMEN [...] report is generated using voice recognition reporting (COADE). On occasion PowerScribe erroneously drops words from the report or replaces the spoken word with similar sounding words. Please call with any questions/concerns regarding this report.* Dictated and transcribed 08/28/2024/tm This report has been electronically signed and approved by the interpreting radiologist. Electronically Signed Dipti Lockhart II, M.D. 2024-08-28 16:38:48 Normal Not Available Follow-Upon 07-26-2024 Follow-Up [id number] Darrian Leal en 1970 F Date Provider Department Center 07/26/2024 PAULINE SANTACRUZ [facility] SLEEP [facility] No family history on file Level of Service:63362 [place] OFFICE/OUTPATIENT ESTABLISHED MOD MDM 30 MIN Reason for Visit and Comments: Follow-up [800211] - Inspire initiation Normal [facility] US ABDOMEN LIMITEDon 024 US ABDOMEN [...] report is generated using voice recognition reporting (COADE). On occasion PowerScribe erroneously drops words from [...] appointment to 07/26 at 10:00 am. Normal [facility] Telephoneon 07-12-2024 Telephone [id number] Darrian Leal 1970 F Date Provider Department Center 07/12/2024 PAULINE SANTACRUZ [facility] SLEEP [facility] No family history on file Reason for Visit and Comments: Reschedule [709] Normal [facility] 36on 06-17-2024 36 Rescheduled cancelle d Inspire follow up appointment for 06/26 at 9:00 am. Normal [facility] Boyd 05-27-2024 L Specimen: [id number] Received: 05/28/24 Status: CASEY Pastrana Num: [id number] Spec Type: Surgical Subm Dr: Sade Felix DPM, MS Tissues: A Gross Only (CALCANEOUS GRAFT) Procedures: Level 1 Gross Age/ Patient Sex Location Account Attending Physician Mary Leal 54/F LABELL [id number] Sade Felix DPM, MS SPEC NUM: [id number] RECD: 05/28/24 STATUS: CASEY PASTRANA NUM: [id number] BOAZ: 05/27/[address]: Sade Felix DPM, MS ENTERED: 05/28/24-[address]: Karina,Lab SPEC TYPE: Surgical DEPT: AVA KELLEY ORDERED: [...] inscription is identified on the device 2019 1226-240 . Gross photos are included. The specimen is for gross only examination. CPT Codes 24235 DEVICE DEVICE ---- ---- Specimen: [id number] Received: 05/28/24 Status: CASEY Pastrana Num: [id number] Spec Type: Surgical Subm Dr: Sade Felix,FADUMO, MS Tissues: A Gross Only (CALCANEOUS GRAFT) Procedures: Level 1 Gross ---- Patient: Mary Leal [id number] (Continued) ---- Signed (signature on file) Paz Rutherford MD 06/19/24 1554 Normal [facility] MR ankle RT wo jimmie 024 MR ankle RT wo con [facility] Main [place] [address] [place], [place] [id number] MRI Report Signed Patient: Mary Leal MR#: [id number] 863 : 1970 Acct:[id number] Age/Sex: 54 / F ADM Date: 04/30/24 Loc: [facility] Room: Type: REG CLI Attending Dr: Sade Felix DPM MS Copies [...] Andres Bullard M.D.04/30/2024 3:14 PM Dictation Location: [place] [address] Transcribed By: [facility] 04/30/24 1514 Dictated By: Andres Bullard DO 04/30/24 1503 Signed By: 04/30/24 1514 Normal [facility] 29on 04-28-2024 29 Encounter addended b y: Dick Mann MD on: 05/07/2024 7:26 PM Actions taken: Charge Capture section accepted Normal [facility] Center Documentationon 04-17-2024 Documentation [id number] Darrian Leal en 1970 F Date Provider Department [place] 04/17/2024 RADHA YARBROUGH [facility] Gerardo Pool No family history on file [facility] Letter (Out)on 04-17-2024 Letter (Out) [id number] Darrian Leal en 1970 F Date Provider Department [place] 04/17/2024 [facility]HA [facility]BROUGH [facility] Gerardo Pool No family history on file [facility] DIAGNOSTIC UPPER ENDOSCOPYon 04-12-2024 [place] [facility] Patient Name: Mary Leal Procedure Date: 04/12/2024 11:46 AM Date of : 1970 Admit Type: Outpatient Age: 53 Room: [facility] 3 Gender: Female Note Status: Finalized Attending MD: Milagros Franco MD, PHD, [id number] Procedure: Upper GI endoscopy Attending Participation: I personally performed the entire procedure. Indications: Dysphagia, [facility] Providers: Milagros Franco MD, PHD (Doctor), Stacie Johns RN (Nurse), Nawaf Pinzon, Mortgage Lender (Mortgage Lender), Everett Maria APRN-BECCA (Anesthesia Staff) Referring MD: [...] verified by the physician, the nurse, the manager harbor and the chemistry quality control technician in the procedure room. Mental Status [...] oxygen saturations were monitored continuously. The Endoscope ([id number]) was introduced through the mouth, and advanced [...] examined (more content not included)... LAB, [facility] Radiology Study observation (narrative) [facility] SURG PATH REQUESTon 04-12-20 Case Report Normal [facility] Comment on above: Result Comment: Surg ical Pathology Report Case: [id number] Authorizing Provider: Milagros Franco MD, Collected: 04/12/2024 12:48 PM PhD Ordering Location: [facility] Outpatient Care Received: 04/12/2024 12:57 PM [place] Pathologist: Manish Tom MD Specimens: A) - TISSUE, gastric biopsy r/o HP evaluate for eosiniphils (large forceps) B) - TISSUE, GE Junction r/o Barrets (large forceps) Performed By: #### S URGP #### [facility] (DEFAULT) [address] [place] [address] Clinical History Preop Diagnosis: Taylor Grade D esophagitis [K20.80]. Early satiety [R68.81]. Unintentional weight loss [R63.4]. Gastroparesis [K31.84]. Medical History: Gastroesophageal reflux disease. Asthma. Benign essential hypertension. History of colectomy. Gastroparesis. Arthritis. Depression. Migraine. Constipation. [facility] Comment on above: Performed By: #### S URGP #### [facility] (DEFAULT) [address] [place] [address] Gross Description [facility] Comment on above: Result Comment: The specimens [...] dimension. TE 1 Lab Use Only: JobID [id number] Praneether for this case was: Carmen Maradiaga Performed By: #### S URGP #### [facility] (DEFAULT) [address] [place] [address] Microscopic Description A microscopic examination was performed. [facility] Comment on above: Performed By: #### S URGP #### [facility] (DEFAULT) [address] [address] Pathologic Diagnosis [facility] Comment on above: Result Comment: Fernando cox, biopsy: Active erosive esophagitis. No Helicobacter pylori organisms identified. B. GE junction, biopsy: Gastroesophageal squamocolumnar junctional mucosa with reflux pattern of injury. No Vega's specialized columnar epithelium (intestinal metaplasia) identified. Performed By: #### S URGP #### [facility] (DEFAULT) [address] [address] Professional Interpretation Performed at: [facility] Comment on above: Result Comment: [facility] For Immediate Release [facility] Yes [address] [address] Performed By: #### S URGP #### [facility] (DEFAULT) [address] [address] 36on 04-10-2024 36 Left voicemail to [facility] to schedule Inspire follow up appointment following sleep study on 04/28. Offered 06/05 at 8:30 am or 4:00 pm OR 06/12 at 8:30 am. [facility] Telephoneon 04-10-2024 Telephone [id number] Darrian Leal en 1970 F Date Provider Department Center 04/10/2024 PAULINE SANTACRUZ [facility] No family history on file Reason for Visit and Comments: Appointment [375] [facility] Follow-Upon 04-03-2024 Follow-Up [id number] Darrian Leal en 1970 F Date Provider Department [place] 04/03/2024 PAULINE SANTACRUZ [facility] No family history on file Level of Service:41796 [place] OFFICE/OUTPATIENT ESTABLISHED MOD MDM 30 MIN Reason for Visit and Comments: Follow-up [098644] - Pt has the Inspire and is here for a follow up. She states it is unbelievable how well it is working for her. She is sleeping through the night, which she hasn't done for years. She is here for a few small adjustments, such as moving it from 6 hours of sleep a night to 8. Normal [facility] CBC AND ELECTRONIC DIFFon Basophils (Bld) [#/Vol] 0.04 10*3/uL Normal 0.00-0.15 [facility] Comment on above: Performed By: #### L AB980 #### [facility] (DEFAULT) [address] [address] Basophils/100 WBC (Bld) 0.6 % Normal [facility] Comment on above: Performed By: #### L AB980 #### [facility] (DEFAULT) [address] [address] DIFF STATUS Electronic Differential Normal [facility] Comment on above: Performed By: #### L AB980 #### [facility] (DEFAULT) [address] [address] Eosinophils (Bld) [#/Vol] 0.08 10*3/uL Normal 0.00-0.42 [facility] Comment on above: Performed By: #### L AB980 #### [facility] (DEFAULT) [address] [address] Eosinophils/100 WBC (Bld) 1.2 % Normal [facility] Comment on above: Performed By: #### L AB980 #### [facility] (DEFAULT) [address] [address] Hematocrit (Bld) [Volume fraction] 40.1 % Normal 34.9-44.3 [facility] Comment on above: Performed By: #### L AB980 #### [facility] (DEFAULT) [address] [address] Hemoglobin (Bld) [Mass/Vol] 12.6 g/dL Normal 11.4-15.2 [facility] Comment on above: Performed By: #### L AB980 #### [facility] (DEFAULT) [address] [address] Immature Grans % 0.5 % Normal [facility] Comment on above: Performed By: #### L AB980 #### [facility] (DEFAULT) [address] [address] Immature Grans Absolute < Normal <=0.08 [facility] Comment on above: Performed By: #### L AB980 #### [facility] (DEFAULT) [address] [address] Lymphocytes (Bld) [#/Vol] 2.05 10*3/uL Normal 1.16-3.51 [facility] Comment on above: Performed By: #### L AB980 #### [facility] (DEFAULT) [address] [address] Lymphocytes/100 WBC (Bld) 31.6 % Normal [facility] Comment on above: Performed By: #### L AB980 #### [facility] (DEFAULT) [address] [address] MCV (RBC) [Entitic vol] 86.6 fL Normal 79.6-97.7 [facility] Comment on above: Performed By: #### L AB980 #### [facility] (DEFAULT) [address] [address] Mean Cell Hgb 27.2 pg Normal 25.9-33.9 [facility] Comment on above: Performed By: #### L AB980 #### [facility] (DEFAULT) [address] [address] Mean Cell Hgb Conc 31.4 g/dL Normal 31.4-35.9 [facility] Comment on above: Performed By: #### L AB980 #### [facility] (DEFAULT) [address] [address] Monocytes (Bld) [#/Vol] 0.47 10*3/uL Normal 0.22-0.87 [facility] Comment on above: Performed By: #### L AB980 #### [facility] (DEFAULT) [address] [address] Monocytes/100 WBC (Bld) 7.3 % Normal [facility] Comment on above: Performed By: #### L AB980 #### [facility] (DEFAULT) [address] [place] [address] Nucleated RBC 0.0 /100 WBC Normal <=0.2 [facility] Comment on above: Performed By: #### L AB980 #### [facility] (DEFAULT) [address] [place] [address] Platelet mean volume (Bld) [Entitic vol] 9.3 fL Normal 8.5-12.2 [facility] Comment on above: Performed By: #### L AB980 #### [facility] (DEFAULT) [address] [place] [address] Platelets (Bld) [#/Vol] 370 10*3/uL Normal 150-393 [facility] Comment on above: Performed By: #### L AB980 #### [facility] (DEFAULT) [address] [place] [address] RBC (Bld) [#/Vol] 4.63 10*6/uL Normal 3.91-5.04 [facility] Comment on above: Performed By: #### L AB980 #### [facility] (DEFAULT) [address] [place] [address] RBC Distribution 14.0 % Normal 10.8-14.9 [facility] Comment on above: Performed By: #### L AB980 #### [facility] (DEFAULT) [address] [place] [address] Segs + Bands Auto 58.8 % Normal [facility] Comment on above: Performed By: #### L AB980 #### [facility] (DEFAULT) [address] [place] [address] Segs + Bands,Absolute Auto 3.81 K/uL Normal 1.64-7.28 [facility] Comment on above: Performed By: #### L AB980 #### [facility] (DEFAULT) [address] [place] [address] WBC (Bld) [#/Vol] 6.48 10*3/uL Normal 3.99-11.19 [facility] Comment on above: Performed By: #### L AB980 #### [facility] (DEFAULT) [address] [address] FERRITINon 03-06-2024 Ferritin [Mass/Vol] 9.1 ng/mL Normal 7.3-270.7 [facility] Comment on above: Performed By: #### F ERIB, TSHQR #### [facility] (DEFAULT) [address] [address] HEPATIC FUNCTION PANELon Albumin [Mass/Vol] 4.3 g/dL Normal 3.5-5.0 [facility] Comment on above: Performed By: #### H FP, IRBC #### [facility] (DEFAULT) [address] [address] ALP [Catalytic activity/Vol] 87 U/L Normal 32-126 [facility] Comment on above: Performed By: #### H FP, IRBC #### [facility] (DEFAULT) [address] [address] ALT [Catalytic activity/Vol] 28 U/L Normal 9-48 [facility] Comment on above: Performed By: #### H FP, IRBC #### [facility] (DEFAULT) [address] [address] AST [Catalytic activity/Vol] 27 U/L Normal 10-39 [facility] Comment on above: Performed By: #### H FP, IRBC #### [facility] (DEFAULT) [address] [address] Bilirubin [Mass/Vol] 0.4 mg/dL Normal <1.5 [facility] Comment on above: Performed By: #### H FP, IRBC #### [facility] (DEFAULT) [address] [address] Bilirubin.indirect [Mass/Vol] 0.1 mg/dL Normal <0.3 [facility] Comment on above: Performed By: #### H PAULO, IRBC #### [facility] (DEFAULT) [address] [address] Protein [Mass/Vol] 6.9 g/dL Normal 6.4-8.3 [facility] Comment on above: Performed By: #### H PAULO, IRBC #### [facility] (DEFAULT) [address] [address] IRON/IRON BINDING/TRANSFERRI Non 03-06-2024 Iron [Mass/Vol] 55 ug/dL Normal 40-174 [facility] Comment on above: Performed By: #### H PAULO, IRBC #### [facility] (DEFAULT) [address] [address] Iron Saturation 13 % Low 20-55 [facility] Comment on above: Performed By: #### H PAULO, IRBC #### [facility] (DEFAULT) [address] [address] Total Iron Binding Capacity 440 mcg/dL High 250-425 [facility] Comment on above: Performed By: #### H PAULO, IRBC #### [facility] (DEFAULT) [address] [address] Transferrin [Mass/Vol] 352 mg/dL Normal 200-400 [facility] Comment on above: Performed By: #### H PAULO, IRBC #### [facility] (DEFAULT) [address] [address] MOLECULAR STOOL PARASITE GUEVARA Cindy 03-06-2024 Cryptosporidium Parvum/Hominis By Pcr Negative Normal Negative [facility] Comment on above: Order Comment: Colle [...] cure. Performed By: #### S CPBP #### [facility] (DEFAULT) [address] [address] Entamoeba Histolytica By Pcr Negative Normal Negative [facility] Comment on above: Order Comment: Colle [...] cure. Performed By: #### S CPBP #### [facility] (DEFAULT) [address] [address] Giardia Lamblia By Pcr Negative Normal Negative [facility] Comment on above: Order Comment: Colle [...] [facility] (DEFAULT) [address] [address] TSH W/FT4 REFLEXon 4 TSH 1.986 uIU/mL Normal 0.550-4.780 [facility] Comment on above: Performed By: #### F ERIB, TSHQR #### [facility] (DEFAULT) [address] [address] VITAMIN D (25-HYDROXY,TOTAL) on 03-06-2024 25-OH Vitamin D Total 22.2 ng/mL Low 30.0-100.0 [facility] Comment on above: Order Comment: Vitam in D values have been shown to be falsely decreased in lipemic samples and should be interpreted with caution. Result Comment: <10 Deficiency 10-29 Insufficiency 30-100 Optimal Level >100 Possible Toxicity Performed By: #### D 25OH #### [facility] (DEFAULT) [address] [place] [address] BACTERIAL VAGINOSIS NAATon 0 02-27-2024 Interpretation and review of laboratory results Normal [facility] Lactobacillus crispatus+gasseri+riri senii + Gardnerella vaginalis + Atopobium vaginae rRNA JOSÉ MIGUEL+probe Ql (Vag fld) Negative Negative for bacterial vaginosis [facility] Lactobacillus crispatus+gasseri+riri senii + Gardnerella vaginalis + Atopobium vaginae rRNA JOSÉ MIGUEL+probe Ql (Vag fld) Negative Normal Negative for bacterial vaginosis [facility] Comment on above: Order Comment: Speci men Type: SWABOrdering Facility: [facility] Address: [address] [place] [address] Performed By: #### B VAMP, CVTV ####[facility] LABCLIA [id number] [place] [address] [place] BETY/TRICHOMONAS NAATon 0 02-27-2024 C. glabrata RNA JOSÉ MIGUEL+probe Ql (Vag fld) Negative Negative for Bety glabrata [facility] Bety sp DNA JOSÉ MIGUEL+probe Ql (Vag fld) Negative Negative for Bety species [facility] Interpretation and review of laboratory results Normal [facility] T. vaginalis DNA JOSÉ MIGUEL+probe Ql (Unsp spec) Negative Negative for Trichomonas vaginalis by amplification [facility] C. glabrata RNA JOSÉ MIGUEL+probe Ql (Vag fld) Negative Normal Negative for Bety glabrata [facility] Comment on above: Order Comment: Speci men Type: SWABOrdering Facility: [facility] Address: [address] [place] [address] Performed By: #### B VAMP, CVTV ####[facility] LABCLIA [id number] [place] [address] [place] Bety sp DNA JOSÉ MIGUEL+probe Ql (Vag fld) Negative Normal Negative for Bety species [facility] Comment on above: Order Comment: Speci men Type: SWABOrdering Facility: [facility] Address: [address] [place] [address] Performed By: #### B VAMP, CVTV ####[facility] LABCLIA [id number] [place] [address] [place] T. vaginalis DNA JOSÉ MIGUEL+probe Ql (Unsp spec) Negative Normal Negative for Trichomonas vaginalis by amplification [facility] Comment on above: Order Comment: Speci men Type: SWABOrdering Facility: [facility] Address: [facility] [place] [address] Performed By: #### B VAMP, CVTV ####[facility] LABCLIA [id number] [place] [address] [place] CNOVon 02-27-2024 CNOV Office Visit (SHERON ) MARY LEAL ([id number]) 1970 F Date Time Provider Department 02/27/24 10:00 AM FLOWER LOPEZ During your visit today, we recorded the following information about you: Pulse Blood pressure Weight Height 62/minute 146/93 69.9 kg 1.626 m Flower Lopez APRN.CHEMISTRY DEPARTMENT CHAIR 02/27/2024 10:40 AM Signed Female Pelvic Medicine [...] intermittently- somewhat improved. She has worked with [employer] rep re: interstim setting, now on program [...] you received about pain medications helpful? Yes General Worker offered:Patient declines OBJECTIVE: BP 146/93 Pulse 62 [...] (more content not included)... Normal [facility] UA DIP, URINE (POC)on 2023 BILIRUBIN UA (POCT) Negative Negative [facility] CLARITY UA (POCT) Clear [facility] COLOR UA (POCT) Yellow [facility] GLUCOSE UA (POCT) Negative Negative mg/dL [facility] Hemoglobin Ql (U) Negative Negative [facility] KETONE UA (POCT) Negative Negative mg/dL [facility] LEUKOCYTES UA (POCT) Negative Negative [facility] NITRITE UA (POCT) Negative Negative [facility] PH UA (POCT) 5.5 4.5 - 8.0 [facility] Protein Ql (U) Negative Negative mg/dL [facility] SPECIFIC GRAVITY UA (POCT) >=1.030 1.005 - 1.030 [facility] UROBILINOGEN UA (POCT) 0.2 Normal E.U./dL [facility] Location:[facility], [address] [place] [address], [address] [place] [address] POINT OF CARE [facility] 29on 02-07-2024 29 Addended by: NATHANAEL MENDOZA on: 02/07/2024 12:01 PM Modules accepted: Orders [facility] Follow-Upon 02-07-2024 Follow-Up [id number] Darrian Leal 1970 F Date Provider Department Center 02/07/2024 PAULINE SANTACRUZ [facility] SLEEP [facility] No family history on file Level of Service:21407 [place] OFFICE/OUTPATIENT ESTABLISHED HIGH MDM 40 MIN Reason for Visit and Comments: Follow-up [207384] - Pt is here to activate her Inspire PAP. [facility] CNPDianne 01-27-2024 CNPN Telephone (GYNMN) MARY LEAL ([id number]) 1970 F Date Time Provider Department 01/27/24 RADHA DUNHAM [place] During your visit today, we recorded the following information about you: Radha Dunham MD 01/27/2024 10:54 AM Signed Chemistry Quality Control Technician Resident Telephone Encounter 01/27/2024 10:44 AM Call [...] Discussed with Dr. Mullins, Urogyn fellow physician disaster recovery consultant. Radha Dunham MD Obstetrics and Gynecology, PGY1 aPm Wang MD 01/28/2024 8:41 PM Signed OUTGOING [...] PM Signed Received fax regarding letter from [employer] stating that on 01/29/24 the patient reported that they felt a zapping sensation in their rectal nerve . Asking that provider answer questions listed on document. Document scanned into [employer]. Kelli Seth Sandra K, RN 03/15/2024 11:27 AM Signed Called pt. Verified name/ Verified requested information and form faxed to [employer] @ [phone] Lili Matias RN March 15, 2024 11:27 [...] (more content not included)... Normal [facility] ANES POSTPROC EVALon 024 ANES POSTPROC EVAL HNO ID: [id number] Author: BONI MURILLO MD Service: ? Author Type: Anesthesiologist Type: Anesthesia Postprocedure Evaluation Filed: 01/26/2024 09:51 Note Text: POST ANESTHESIA EVALUATION NOTE : 1970 Procedure Summary Date: 01/26/24 [address] Anesthesia Start: 727 Anesthesia Stop: 899 [...] 0930 Temp 36 ?C (96.8 ?F) 01/26/24 09 Pulse 64 01/26/24929 Resp 16 01/26/24 0930 SpO2 100 % 01/26/24929 Post Anesthesia Patient [...] January 26, 2024 TIME: 9:51 AM CSN: [id number] Normal [facility] ANES PRE-OPon 01-26-2024 ANES PRE-OP HNO ID: [id number] Author: BONI MURILLO MD Service: ? Author [...] January 26, 2024 TIME: 7:06 AM CSN: [id number] [facility] BRIEF OP NOTon 01-26-2024 BRIEF OP NOT HNO ID: [id number] Author: SOFIYA MULLINS MD Service: Urogynecology Author Type: Fellow Type: Brief Op Note Filed: 01/26/2024 08:44 Note Text: BRIEF OPERATIVE / PROCEDURE NOTE LOG ID: [id number] Surgery/Procedure Date: 01/26/2024 Incision/Procedure Start Time: 7:54 AM Incision Close/Procedure End Time: 8:36 AM Surgeon(s)/Procedurali st(s) and Executive Vp(s): Surgeon(s) and Role: * Pam Wang MD [...] Implant Name Type Inv. Item Serial No. Certified Professional Midwife Lot No. LRB No. Used Action LEAD INTRSTIM MRI 28CM - [id number] Lead LEAD INTRSTIM MRI 28CM [employer] [id number] Left 1 Implanted INTERSTIM X RECHARGE FREE NEUROSTIMULATOR - [id number] Stimulator INTERSTIM X RECHARGE FREE NEUROSTIMULATOR [id number] [employer] Left 1 Implanted Pre-Op/Pre-Procedure Diagnosis: urinary retention, urgency, frequency and nocturia Post-Op/Post-Procedure Diagnosis: same SIGNATURE: Sofiya Mullins MD DATE: January 26, 2024 PATIENT NAME: Mary Leal TIME: 8:42 AM PAGER/CONTACT #: Pager [phone] Normal [facility] HISTORY PHYSICALon HISTORY PHYSICAL HNO ID: [id number] Author: SOFIYA MULLINS MD Service: Urogynecology Author [...] (more content not included)... Normal [facility] NURSING PROGon 01-26-2024 NURSING PROG HNO ID: [id number] Author: DAI CAMPUZANO, RN Service: Nursing Author Type: Registered Nurse Type: Nursing Progress Note Filed: 01/26/2024 09:51 Note Text: 0923 Paged PACU Resident M22-30 Elvis- Could you please place an order for a one time dose of her homegoing [place] [id number] Paged PACU Resident M22-30 Elvis- Could you please place an order for a one time dose of her homegoing [place] [phone] Normal [facility] NURSING PROG HNO ID: [id number] Author: CATRACHO PIERRE, RN Service: ? Author Type: Registered Nurse Type: Nursing Progress Note Filed: 01/26/2024 06:41 Note Text: Nursing Progress Note Topic of Note: Daily Note PATIENT NAME: Mary Leal Patient Location: Main - Periop OR/Main - Periop OR Room: Main - Periop OR (M023-37) PAGE SENT: Akiko Wang and Resident superintendent system operation-Pt in M23-37 Mary Leal will need informed consent and H AND P for surgery this morning. Thanks, Catracho [id number] This note was completed by: Catracho Pierre [facility] OPERATIVE NOon 01-26-2024 OPERATIVE NO HNO ID: [id number] Author: PAM WANG MD Service: Urogynecology Author Type: Physician Type: Operative Report Filed: 01/29/2024 10:50 Note Text: OPERATIVE/PROCEDURE REPORT LOG ID: [id number] Surgery/Procedure Date: 01/26/2024 Incision/Procedure Start Time: 7:54 AM Incision Close/Procedure End Time: 8:36 AM Surgeon(s)/Procedurali st(s) and Executive Vp(s): Surgeon(s) and Role: * Pam Wang MD [...] Implant Name Type Inv. Item Serial No. Certified Professional Midwife Lot No. LRB No. Used Action LEAD INTRSTIM MRI 28CM - [id number] Lead LEAD INTRSTIM MRI 28CM [employer] [id number] Left 1 Implanted INTERSTIM X RECHARGE FREE NEUROSTIMULATOR - [id number] Stimulator INTERSTIM X RECHARGE FREE NEUROSTIMULATOR [id number] [employer] Left 1 Implanted Pre-Op/Pre-Procedure Diagnosis: [...] into the foramen up to the second howie. Fluoroscopic images were taken to confirm the guide wire was passed the foramen, then the needle was removed. A stab incision was made with the 11 blade. The T-bar introducer was then inserted through the insertion and into the S3 foramen until the marker was residential through the bone. The sacral lead was [...] (more content not included)... Normal [facility] HISTORY PHYSICALon HISTORY PHYSICAL HNO ID: [id number] Author: MAX MARROQUIN PA-C Service: ? Author Type: Physician Executive Vp Type: H&P Filed: 01/25/2024 09:25 Note Text: [...] visit. Either the patient or their legal lead generation representative has been informed of the risks [...] using inspire to get activated 02/07/2024 ) [id number] Score: Age: <65 Sex: female CHF history: No Hypertension history: Yes Stroke/TIA/thromboembo lism history: No Vascular disease history: No Diabetes history: No [id number] Score: 2 ANESTHESIA FINDINGS: Intubation History: No [...] PAST SURGICAL HIST (more content not included)... [facility] Hussain 12-25-2023 MARIAN Telephone (GYNMN) MARY LEAL ([id number]) 1970 F Date Time Provider Department 12/25/23 PAM WANGMN During your visit today, we recorded the following information about you: [place] [facility] [place]/25/2023 2:54 PM Signed Reason for call: [...] distance health visit in this department: 10/25/2021 Member Service Representative, Nurse Next visit in this department: 01/25/2024 [...] - Fully Assessed Reason for Visit: Question [8197] Prescriptions as of 12/25/2023 - ARIPiprazole monohydrate [...] Encounter Status:Closed by STACIE GONZALEZ on 12/25/23 [facility] Basic Metabolic Panelon 12-07 Anion gap [Moles/Vol] 6 mmol/L 5 - 15 mmol/L [facility] Calcium [Mass/Vol] 9.3 mg/dL 8.5 - 10. 5 mg/dL [facility] Chloride [Moles/Vol] 105 mmol/L 98 - 10 9 mmol/L [facility] CO2 [Moles/Vol] 28 mmol/L 22 - 32 mmol/L [facility] Creatinine [Mass/Vol] 0.60 mg/dL 0.40 - 1.00 mg/dL [facility] Comment on above: METHOD TRACEABLE TO [facility] STANDARD eGFR (CKD-EPI)non-race dependent - PINF [facility] Comment on above: Reported eGFR is based on the CKD-EPI 2020 equation that does not use a race coefficient. Glucose [Mass/Vol] 85 mg/dL 65 - 99 mg/dL [facility] Potassium [Moles/Vol] 4.2 mmol/L 3.5 - 5.0 mmol/L [facility] Sodium [Moles/Vol] 139 mmol/L 134 - 146 mmol/L [facility] Urea nitrogen [Mass/Vol] 14 mg/dL 5 - 23 mg/dL [facility] CNPNon 11-27-2023 CNPN Telephone (WCTRMN) MARY LEAL ([id number]) 1970 F Date Time Provider Department 11/27/23 PAM WANG ROSSMN During your visit today, we recorded the following information about you: Amber Trimble 11/27/2023 9:32 AM Signed Patient: Mary Leal : 1970 Provider: Pam Wang MD Caller Phone #: [phone] (home) [phone] (cell) Reason for call: boyfriend pulled out bladder stimulator. Has log of 6 days of usage. Would like a call. Message routed to nurse triage Date of next visit: MEREDITH: 08/04/2021 Lex Vieyra RN 11/27/2023 10:18 AM Signed [facility] 11/21/2023: Procedure to be performed: Peripheral Nerve Evaluation (PNE) Indication: Urinary frequency, urinary urgency, overactive bladder The patient tolerated the procedure well. We will see how she does over the next week and plan for interstim stages 1/2 in the OR. Pam Wang MD Mary reports the PNE stimulator stopped connecting so Kim of [employer] said to remove it. She removed the [...] urge [N39.41] Order(s):SURGICAL REQUEST - ELECTIVE (06/2020) [[id number]] Order #: [id number]: 1 Prescriptions as of 11/27/2023 - ARIPiprazole [...] Encounter Status:Closed by PAM WANG on 11/27/23 [facility] 11-25-2023 CNPN Telephone (GYNMN) MARY LEAL ([id number]) 1970 F Date Time Provider Department 11/25/23 RADHA DUNHAM [place] During your visit today, we recorded the following information about you: Radha Dunham MD 11/25/2023 2:43 PM Signed Chemistry Quality Control Technician Resident Telephone Encounter 11/25/2023 2:40 PM Call [...] adequately. Discussed with Dr. Mullins, Urogyn fellow disaster recovery consultant. Radha Dunham MD Obstetrics and Gynecology, PGY1 Allergies As of Date: 11/25/2023 Noted Allergy Reaction RISPERIDONE 07/27/2021 5 - Intolerance Comments: Breast discharge POISON BRENDA EXTRACT 04/06/2023 2 - Rash Date Reviewed: 10/10/2023 Reviewed by: José Luis Thorpe RN - Fully Assessed Reason for Visit: Patient Question [1086] Prescriptions as of 11/25/2023 - ARIPiprazole monohydrate [...] Encounter Status:Closed by RADHA DUNHAM on 11/25/23 [facility] CNOVon 11-21-2023 CNOV Office Visit (SHERON ) MARY LEAL ([id number]) 1970 F Date Time Provider Department 11/21/23 [...] Voiding dysfunction [N39.8] Order(s):UA DIP, URINE (POC) [[id number]] Order #: [id number]. #:[id number] [] ondansetron orally disintegrating 4 mg tab(s) [...] (more content not included)... Normal [facility] CNOVon 10-10-2023 CNOV Office Visit (SHERON ) MARY LEAL ([id number]) 1970 F Date Time Provider Department 10/10/23 2:30 PM PAM WANG During your visit today, we recorded the following information about you: Blood pressure 102/60 Pam Wang MD 10/12/2023 9:42 AM Signed Female Pelvic Medicine AND Reconstructive Surgery Follow-Up Maryjose Leal is a 53 year old female, who presents for a follow-up of urinary urgency, urinary frequency. VV w/ Dr. Wang 08/07/23 Impression: Maryjose Leal is a 53 year old female [...] PFSH obtained by others. Pam Wang MD General Worker offered: Patient declines. OBJECTIVE: BP 102/60 General: [...] would like to move forward with PNE. [employer] packet given to patient today to review. [...] which included preparing to see the patient, [id number] patient care, completing clinical (more content not included)... Normal [facility] Hussain 09-12-2023 MARIAN Telephone (WHQ) MARY LEAL ([id number]) 1970 F Date Time Provider Department 09/12/23 [...] which included preparing to see the patient, [id number] patient care, completing clinical documentation, obtaining and/or reviewing separately obtained history, counseling and educating the patient/family/caregiv er, ordering medications, tests, or procedures, and communicating with other HCPs (not separately reported). Pam Wang MD [facility] states she had her procedure yesterday and [...] Office will call to schedule cystoscopy. Urogynecology [facility] Main provided: Pam Wang Staff Physician, Department [...] Diagnosis:History of suburethral sling procedure [Z98.890] Order(s):CYSTOSCOPY [facility] [[id number]] Order #: [id number] Prescriptions as of 09/12/2023 - atenolol (TENORMIN) [...] (more content not included)... Normal [facility] CNOVon 09-11-2023 CNOV Office Visit (UROSMN ) MARY LEAL ([id number]) 1970 F Date Time Provider Department 09/11/23 [...] Jenifer Barry RN 09/11/2023 11:37 AM Signed [facility] URODYNAM[facility] LAB [...] allergy: No Females- Is patient : No General Worker offered:Patient declines B/O UA: YES DIP: UROFLOWMETRY [...] Jairon Lai MD 09/11/2023 1:18 PM Signed [facility] CENTER FOR [...] Jairon Lai MD Referring Provider: PAM WANG [[id number]] Allergies As of Date: 09/11/2023 Noted Allergy [...] (more content not included)... Normal [facility] BASIC METABOLIC PANELon 10-0 Anion gap [Moles/Vol] 1 mmol/L Low 8-12 [email or web address] [facility] Comment on above: Performed By: #### 4 [id number], [id number], [id number], [id number] #### [address] [place], [place] [address] Calcium [Mass/Vol] 9.2 mg/dL Normal 8.4-10.4 [facility] Comment on above: Performed By: #### 4 [id number], [id number], [id number], [id number] #### [address] [place] [address] [facility] Chloride [Moles/Vol] 105 mmol/L Normal 96-109 [email or web address] Comment on above: Performed By: #### 4 [id number], [id number], [id number], [id number] #### [address] [place] [address] [place] CO2 [Moles/Vol] 32 mmol/L High 22-30 [facility] Comment on above: Performed By: #### 4 [id number], [id number], [id number], [id number] #### [address] [address] [facility] Creatinine [Mass/Vol] 0.67 mg/dL Normal 0.52-1.[address] [facility] Comment on above: Performed By: #### 4 [id number], [id number], [id number], [id number] #### [address] [place] [address] [place] GLOMERULAR FILTRATION RATE ML/MIN/1.73 SQ M.PREDICTED >90.0 Normal >=60.0 [facility] Comment on above: Result Comment: eGFR calculation [...] Kidney Int Suppl.2013;3:1-150 Performed By: #### 4 [id number], [id number], [id number], [id number] #### [address] [place] [address] [place] Glucose [Mass/Vol] 104 mg/dL High 65-100 [facility] Comment on above: Performed By: #### 4 [id number], [id number], [id number], [id number] #### [address] Potassium [Moles/Vol] 4.6 mmol/L Normal 3.6-5.[address] [facility] Comment on above: Performed By: #### 4 [id number], [id number], [id number], [id number] #### [address] Sodium [Moles/Vol] 138 mmol/L Normal 135-147 [facility] Comment on above: Performed By: #### 4 [id number], [id number], [id number], [id number] #### [address] Urea nitrogen [Mass/Vol] 16 mg/dL Normal 8-26 [facility] Comment on above: Performed By: #### 4 [id number], [id number], [id number], [id number] #### [address] [place] [address] Basic metabolic panel aka Ch em 808-12-2023 Anion gap [Moles/Vol] 1 mmol/L Low 8 - 12 mmol/L [facility] Calcium [Mass/Vol] 9.2 mg/dL 8.4 - 10. 4 mg/dL [facility] Calcium hydrogen phosphate dihydrate crystals LM Ql (Urine sed) 16 mg/dL 8 - 26 mg/dL [facility] Chloride [Moles/Vol] 105 mmol/L 96 - 10 9 mmol/L [facility] CO2 (BldMV) [Moles/Vol] 32 mmol/L High 22 - 30 mmol/L [facility] Creatinine [Mass/Vol] 0.67 mg/dL 0.52 - 1.04 mg/dL [facility] GFR/1.73 sq M.predicted MDRD (S/P/Bld) [Vol rate/Area] - PINF [facility] Comment on above: eGFR calculation bas ed [...] 104 mg/dL High 65 - 100 mg/dL [facility] Interpretation and review of laboratory results Abnormal [facility] Potassium [Moles/Vol] 4.6 mmol/L 3.6 - 5.1 mmol/L [facility] Sodium [Moles/Vol] 138 mmol/L 135 - 147 mmol/L [facility] CBC AND DIFFERENTIALon 08-12 ABSOLUTE BASOPHIL 0.0 x10*3/uL Normal 0.0-0.1 [facility] Comment on above: Performed By: #### 4 [id number] #### [address] ABSOLUTE EOSINOPHIL 0.1 x10*3/uL Normal 0.1-0.[address] [facility] Comment on above: Performed By: #### 4 [id number] #### [address] ABSOLUTE IMMATURE GRANULOCYTES 0.0 x10*3/uL Normal 0.0-0.1 [facility] Comment on above: Performed By: #### 4 [id number] #### [address] ABSOLUTE LYMPH 1.6 x10*3/uL Normal 1.2-3.3 [facility] Comment on above: Performed By: #### 4 [id number] #### [address] ABSOLUTE MONO 0.3 x10*3/uL Normal 0.2-0.6 [facility] Comment on above: Performed By: #### 4 [id number] #### [address] ABSOLUTE NEUTROPHIL 3.1 x10*3/uL Normal 2.4-6.[address] [facility] Comment on above: Performed By: #### 4 [id number] #### [place] [address] [place] Basophils/100 WBC (Bld) 0.8 % Normal [facility] Comment on above: Performed By: #### 4 [id number] #### [address] Eosinophils/100 WBC (Bld) 2.7 % Normal [facility] Comment on above: Performed By: #### 4 [id number] #### [address] Erythrocyte distribution width (RBC) [Ratio] 13.0 % Normal 11.5-14.5 [facility] Comment on above: Performed By: #### 4 [id number] #### [address] Hematocrit (Bld) [Volume fraction] 37.5 % Normal 33.6-46.8 [facility] Comment on above: Performed By: #### 4 [id number] #### [address] Hemoglobin (Bld) [Mass/Vol] 11.8 g/dL Normal 11.7-15.8 [facility] Comment on above: Performed By: #### 4 [id number] #### [address] Immature granulocytes/100 WBC (Bld) 0.4 % Normal [facility] Comment on above: Performed By: #### 4 [id number] #### [address] Lymphocytes/100 WBC (Bld) 31.5 % Normal [facility] Comment on above: Performed By: #### 4 [id number] #### [address] MCH (RBC) [Entitic mass] 26.5 pg Low 27.5-32.3 [facility] Comment on above: Performed By: #### 4 [id number] #### [address] MCHC (RBC) [Mass/Vol] 31.5 g/dL Normal 30.7-35.5 [facility] Comment on above: Performed By: #### 4 [id number] #### [address] MCV (RBC) [Entitic vol] 84.3 fL Normal 80.2-99 [facility] Comment on above: Performed By: #### 4 [id number] #### [address] Monocytes/100 WBC (Bld) 5.4 % Normal [facility] Comment on above: Performed By: #### 4 [id number] #### [address] Neutrophils/100 WBC (Bld) 59.2 % Normal [facility] Comment on above: Performed By: #### 4 [id number] #### [address] NUCLEATED RED BLOOD CELLS AUTO 0.0 % Normal 0.0-1.0 [facility] Comment on above: Performed By: #### 4 [id number] #### [address] PLATELET COUNT 299 x10*3/uL Normal 150-400 [facility] Comment on above: Performed By: #### 4 [id number] #### [address] RED BLOOD CELL COUNT 4.45 x10*6/uL Normal 3.60-5.20 G [facility] Comment on above: Performed By: #### 4 [id number] #### [address] WHITE BLOOD CELLS 5.2 x10*3/uL Normal 4.3-10.3 [facility] Comment on above: Performed By: #### 4 [id number] #### [address] CBC with differentialOrdered By: Background Lab on 08-12-2023 Absolute Immature Granulocytes 0.0 [facility] Age [Time] 84.3 fL 80.2 - 99 fL [facility] Age [Time] 26.5 pg Low 27.5 - 32.3 pg [facility] Age [Time] 31.5 g/dL 30.7 - 35.5 g/dL [facility] B. burgdorferi IgM IB Ql (CSF) 31.5 % [facility] Basophils (Bld) [#/Vol] 0.0 10*3/uL [facility] Basophils/100 WBC (Body fld) 0.8 % [facility] Eosinophils (Bld) [#/Vol] 1.6 10*3/uL [facility] Eosinophils (Bld) [#/Vol] 0.3 10*3/uL [facility] Eosinophils (Bld) [#/Vol] 0.1 10*3/uL [facility] Eosinophils/100 WBC (Bld) 2.7 % [facility] Erythrocyte distribution width (RBC) [Ratio] 13.0 % 11.5 - 14.5 % [facility] Hematocrit (Bld) [Volume fraction] 37.5 % 33.6 - 46.8 % [facility] Hexanoylglycine (U) [Moles/Vol] 11.8 g/dL 11.7 - 15.8 g/dL [facility] Immature granulocytes/100 WBC (Bld) 0.4 % [facility] Interpretation and review of laboratory results Abnormal [facility] Monocytes/100 WBC (Bld) 5.4 % [facility] Neurotensin (P) [Mass/Vol] 59.2 % [facility] Neutrophils (Bld) [#/Vol] 3.1 10*3/uL [facility] Nucleated RBC/100 WBC (Bld) [Ratio] 0.0 % 0.0 - 1.0 % [facility] Platelets (Bld) [#/Vol] 299 10*3/uL [facility] RBC (Bld) [#/Vol] 4.45 10*6/uL [facility] WBC (Bld) [#/Vol] 5.2 10*3/uL [facility] CT ABDOMEN PELVIS WITH IV CO [...] 20 RAC Omni 300 100 ml Normal [facility] HEPATIC FUNCTION PANELon Albumin [Mass/Vol] 4.0 g/dL Normal 3.5-5.0 [facility] Comment on above: Performed By: #### 4 [id number], [id number], [id number], [id number] #### [address] [address] ALK PHOS 104 U/L Normal 24-126 [facility] Comment on above: Performed By: #### 4 [id number], [id number], [id number], [id number] #### [address] [place] [address] [place] ALT [Catalytic activity/Vol] 50 U/L High 4-35 [facility] Comment on above: Performed By: #### 4 [id number], [id number], 87835472, [id number] #### [address] [address] [place] AST [Catalytic activity/Vol] 59 U/L High 3-47 [facility] Comment on above: Performed By: #### 4 [id number], [id number], [id number], [id number] #### [address] [place] [address] [place] Bilirubin [Mass/Vol] 0.1 mg/dL Low 0.2-1.6 [facility] Comment on above: Performed By: #### 4 [id number], [id number], [id number], [id number] #### [address] [place] [address] [place] Bilirubin.indirect [Mass/Vol] 0.1 mg/dL Normal <=0.5 [facility] Comment on above: Performed By: #### 4 [id number], [id number], [id number], [id number] #### [address] [place] [address] Protein [Mass/Vol] 6.6 g/dL Normal 6.3-8.2 [facility] Comment on above: Performed By: #### 4 [id number], [id number], 63378705, [id number] #### [address] [place] [address] Hepatic Function Panelon Albumin (Syn fld) [Mass/Vol] 4.0 g/dL 3.5 - 5.0 g/dL [facility] Aldosterone (U) [Mass/Vol] 104 U/L 24 - 126 U/L [facility] ALT [Catalytic activity/Vol] 50 U/L High 4 - 35 U/L [facility] AST [Catalytic activity/Vol] 59 U/L High 3 - 47 U/L [facility] Bilirubin [Mass/Vol] 0.1 mg/dL Low 0.2 - 1 .6 mg/dL [facility] Bilirubin.conjugated [Mass/Vol] 0.1 mg/dL NINF - 0.5 mg/dL [facility] Protein [Mass/Vol] 6.6 g/dL 6.3 - 8.2 g/dL [facility] LIPASEon 08-12-2023 Lipase [Catalytic activity/Vol] 11 U/L Low 23-300 [facility] Comment on above: Performed By: #### 4 [id number], [id number], [id number], [id number] #### [facility] [address] Lipaseon 08-12-2023 Lipase [Catalytic activity/Vol] 11 U/L Low 23 - 300 U/L [facility] No Panel Informationon 08-12 Extra Tube Hold for add-ons. [facility] Interpretation and review of laboratory results Abnormal [facility] POCT ED/FC/GSC Urine PregOrd ered By: Della Hays on 08-12-2023 Beta HCG ( test) Ql (U) Negative [facility] Interpretation and review of laboratory results Normal [facility] [employer] Acceptable yes [facility] TROPONIN Ion 08-12-2023 Troponin I.cardiac [Mass/Vol] ng/mL Normal <=0.033 [facility] Comment on above: Result Comment: Nega tive: No detectable troponin-I. Performed By: #### 4 [id number] #### [place] [address] TROPONIN I SERIESon 08-12-20 Troponin I.cardiac [Mass/Vol] ng/mL Normal <=0.033 [facility] Comment on above: Result Comment: Nega tive: No detectable troponin-I. Performed By: #### 4 [id number], [id number], [id number], [id number] #### [address] Troponin I (One time)on Interpretation and review of laboratory results Normal [facility] Troponin I.cardiac [Mass/Vol] ng/mL NINF - 0.033 ng/mL [facility] Comment on above: Negative: No detectable troponin-I. [facility] Troponin I - Series (X 3)on 08-12-2023 Interpretation and review of laboratory results Normal [facility] Troponin I.cardiac [Mass/Vol] ng/mL NINF - 0.033 ng/mL [facility] Comment on above: Negative: No detectable troponin-I. [facility] URINALYSIS WITH REFLEX CULTU REon 08-12-2023 Appearance (U) Clear Normal [facility] Comment on above: Performed By: #### 4 [id number] #### [address] BILIRUBIN UA Negative Normal Negative [facility] Comment on above: Performed By: #### 4 [id number] #### [address] Color (U) Yellow Normal [facility] Comment on above: Performed By: #### 4 [id number] #### [place] [address] [place], [place] [address] Glucose Ql (U) Negative Normal Negative [facility] Comment on above: Performed By: #### 4 [id number] #### [address] [address] Ketones Ql (U) Negative Normal Negative [facility] Comment on above: Performed By: #### 4 [id number] #### [address] LEUKOESTERASE Negative Normal Negative [facility] Comment on above: Performed By: #### 4 [id number] #### [address] MUCOUS-URINE Occasional Normal [facility] Comment on above: Performed By: #### 4 [id number] #### [address] Nitrite Ql (U) Negative Normal Negative [facility] Comment on above: Performed By: #### 4 [id number] #### [address] OCCULT BLD Negative Normal Negative [facility] Comment on above: Performed By: #### 4 [id number] #### [address] PH, URINE 5.0 [facility] Comment on above: Performed By: #### 4 [id number] #### [address] Protein Ql (U) Negative Normal Negative [facility] Comment on above: Performed By: #### 4 [id number] #### [address] RBC LM.HPF (Urine sed) [#/Area] /[HPF] Normal <=5 [facility] Comment on above: Performed By: #### 4 [id number] #### [address] SPECIFIC GRAVITY, URINE 1.025 Normal [facility] Comment on above: Performed By: #### 4 [id number] #### [address] SQUAMOUS EPI CELLS 51 /LPF [facility] Comment on above: Performed By: #### 4 [id number] #### [address] UROBILINOGEN UA Negative Normal <2.0 [facility] Comment on above: Performed By: #### 4 [id number] #### [address] WBC LM.HPF (Urine sed) [#/Area] 2 /[HPF] Normal <=5 [facility] Comment on above: Performed By: #### 4 [id number] #### [address] Urinalysis complete W Reflex Culture panel (U)on 08-12-2023 Acetone [Mass/Vol] Negative Negative [facility] Appearance (Body fld) Clear [facility] Bilirubin Ql (U) Negative Negative [...] (U) [Mass/Vol] Negative Negative [facility] [place] IgE Qn (S) Negative Negative [facility] Specific gravity (U) [Rel density] 1.025 [facility] Spherocytes LM Ql (Bld) 51 /LPF [facility] Urobilinogen Qn (U) Negative NINF - 2.0 [facility] WBC (U) [#/Vol] 2 /uL [facility] CNOVon 07-31-2023 CNOV Office Visit (SHERON ) MARY LEAL ([id number]) 1970 F Date Time Provider Department 07/31/23 [...] new Pain: no Abnormal Vaginal Discharge: no CHICKEN SEXER 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 She has no history of an abnormal mammogram with cysts on US LMP: No LMP recorded. Patient has had a hysterectomy.; Menopause 3 years ago; hysterectomy in 2015: Menstrual history: NA; Deliveries: I have confirmed and edited as necessary, the PFSH obtained by others. Nelsy Chávez APRN.CHEMISTRY DEPARTMENT CHAIR General Worker offered: Patient declines. OBJECTIVE: There were no [...] for now d/t side effects Nelsy Chávez APRN.CHEMISTRY DEPARTMENT CHAIR I spent a total of 45 minutes on the date of the service which included preparing to see the patient, nmes-[id number] patient care, completing clinical documentation, performing a [...] [R35.0] Nocturia [R35.1] Order(s):UA DIP, URINE (POC) [5958111] Order #: [id number]. #:[id number] [[id number]] Order #: [id number] Prescriptions as of 07/31/2023 - atenolol (TENORMIN) [...] (more content not included)... Normal [facility] UA DIP, URINE (POC)on 2022 BILIRUBIN UA (POCT) Negative Negative [facility] CLARITY UA (POCT) Clear [facility] COLOR UA (POCT) Yellow [facility] GLUCOSE UA (POCT) Negative Negative mg/dL [facility] Hemoglobin Ql (U) Negative Negative [facility] KETONE UA (POCT) Negative Negative mg/dL [facility] LEUKOCYTES UA (POCT) Negative Negative [facility] NITRITE UA (POCT) Negative Negative [facility] PH UA (POCT) 5.0 4.5 - 8.0 [facility] Protein Ql (U) Negative Negative mg/dL [facility] SPECIFIC GRAVITY UA (POCT) 1.010 1.005 - 1.030 [facility] UROBILINOGEN UA (POCT) 0.2 E.U./dL Normal E.U./dL [facility] Office Visit (Cardiology)on 06-13-2023 Follow-up visit Diagnoses/Problems Assessed Chest pain (786.50) (R07.9) Elevated troponin (790.6) (R77.8) Fatigue (780.79) (R53.83) Never a smoker Overweight with body mass index (BMI) of 27 to 27.9 in adult (278.02,V85.23) (E66.3,Z68.27) Orders Elevated troponin IO EKG Electrocardiogram- 12 Lead; Status:Active - Perform Order,Retrospective Authorization; Requested for:[id number]; Overweight with body mass index (BMI) of 27 to 27.9 in adult Healthy Weight Tips; Status:Complete - Retrospective Authorization; Done: [id number] Some eating tips that can help you lose weight.; Status:Complete - Retrospective Authorization; Done: [id number] SocHx: Never a smoker Tobacco Use Screening; Status:Complete; Done: [id number] Patient Instructions Please bring all medicines, vitamins, [...] weakness, dizziness, diaphoresis with recent work-up that [facility] emergency room. Reportedly her troponins are elevated [...] of which are currently being investigated at [facility] (now her fourth GI specialist). Last year while in [place] she had similar issues with elevated troponins in the ED and underwent heart catheterization that did not reveal any specific significant disease, details of the discharge summary are reviewed She underwent recent stress perfusion imaging at [facility], the report is reviewed, she has no [...] disease, will investigate the troponin rise at [facility] however I believe this is likely a non-LA troponin elevation, likely associated with underlying inflammatory [...] Signs Recorded: 13Jun2023 10:37AM Heart Rate70, Apical [id number], RUE, Sitting Iqkzoisak16, RUE, Sitting Height5 ft 4 in Wcawyp020 lb BMI Tspqfofezq67.46 kg/m2 BSA Calculated1.78 Tobacco Useb) No PHQ-2 [...] Screening.on 023 Adult depression screening assessment No [facility] [address] DO Work Phone: Adult depression screening assessment Yes [facility] [address] DO Work Phone: Adult depression screening assessment Moderate (10-14) [facility] [facility] DO Work Phone: Fall risk assessment a) No falls within the last year [facility] DO Work Phone: Tobacco use status CP b) No [facility] DO Work Phone: Tobacco Screening. 1-Several days [facility] DO Work Phone: Tobacco Screening. 3-Nearly every day [facility] [address] DO Work Phone: Tobacco Screening. 0-Not at all [facility] DO Work Phone: Tobacco Screening. Somewhat Difficult -[facility] DO Work Phone: Activated partial thrombopla stin time (aPTT) in platelet poor plasma by coagulation aOrdered By: Anibal Valle on 06-05-2023 aPTT Coag (PPP) [Time] 28.0 s 25.1-36.5 [facility] Basophils Auto (Bld) [#/Vol] Ordered By: Anibal Valle on 06-05-2023 Basophils (Bld) [#/Vol] 0.0 10*3/uL 0.0-0.2 [facility] Basophils/100 WBC Auto (Bld) Ordered By: Anibal Valle on 06-05-2023 Basophils/100 WBC (Bld) 0.4 % . [facility] Calcium [Mass/volume] in Ser um or PlasmaOrdered By: Anibal Valle on 06-05-2023 Calcium [Mass/Vol] 9.0 mg/dL 8.6-10.3 [facility] Carbon dioxide, total [Moles /volume] in Serum or PlasmaOrdered By: Anibal Valle on 06-05-2023 CO2 [Moles/Vol] 23.2 mmol/L 21.0-31.0 [facility] Chloride [Moles/volume] in S jay or PlasmaOrdered By: Anibal Valle on 06-05-2023 Chloride [Moles/Vol] 108 mmol/L 98-107 [facility] Creatinine [Mass/volume] in Serum or PlasmaOrdered By: Anibal Valle on 06-05-2023 Creatinine [Mass/Vol] 0.67 mg/dL 0.60-1.20 [facility] Eosinophils Auto (Bld) [#/Vo l]Ordered By: Anibal Valle on 06-05-2023 Eosinophils (Bld) [#/Vol] 0.1 10*3/uL 0.0-0.45 [facility] Eosinophils/100 WBC Auto (Bl d)Ordered By: Anibal Valle on 06-05-2023 Eosinophils/100 WBC (Bld) 1.9 % . [facility] Erythrocyte distribution wid th Auto (RBC) [Ratio]Ordered By: Anibal Valle on 06-05-2023 Erythrocyte distribution width (RBC) [Ratio] 13.9 % 11.9-15.3 [facility] Glucose [Mass/volume] in Ser um or PlasmaOrdered By: Anibal Valle on 06-05-2023 Glucose [Mass/Vol] 106 mg/dL 70-100 [facility] Comment on above: ADA recommended refe rence rangeRandom Glucose Reference Range is dependent on time and content of last meal. Glucose of more than 200 mg/dL in a nonstressed, ambulatory subject supports the diagnosis of Diabetes Mellitus. Hematocrit Auto (Bld) [Volum e fraction]Ordered By: Anibal Valle on 06-05-2023 Hematocrit (Bld) [Volume fraction] 34.4 % 34.0-46.4 [facility] Hemoglobin [Mass/volume] in BloodOrdered By: Anibal Valle on 06-05-2023 Hemoglobin (Bld) [Mass/Vol] 11.9 g/dL 11.8-15.4 [facility] Laboratory - CoagulationOrde red By: Anibal Valle on 06-05-2023 PT Coag (PPP) [Time] 12.0 s 9.0-12.9 [facility] Leukocytes [#/volume] correc herbert for nucleated erythrocytes in Blood by Automated counOrdered By: Anibal Valle on 06-05-2023 WBC corrected for nucl RBC Auto (Bld) [#/Vol] 4.4 10*3/uL 3.8-11.6 [facility] Lymphocytes Auto (Bld) [#/Vo l]Ordered By: Anibal Valle on 06-05-2023 Lymphocytes (Bld) [#/Vol] 1.8 10*3/uL 1.00-4.8 [facility] Lymphocytes/100 WBC Auto (Bl d)Ordered By: Anibal Valle on 06-05-2023 Lymphocytes/100 WBC (Bld) 41.0 % . [facility] MCH Auto (RBC) [Entitic mass ]Ordered By: Anibal Valle on 06-05-2023 MCH (RBC) [Entitic mass] 27.7 pg 24.7-34.3 [facility] MCHC Auto (RBC) [Mass/Vol]Or dered By: Anibal Valle on 06-05-2023 MCHC (RBC) [Mass/Vol] 34.5 g/dL 32.0-35.0 [facility] MCV Auto (RBC) [Entitic vol] Ordered By: Anibal Valle on 06-05-2023 MCV (RBC) [Entitic vol] 80.2 fL 80-100 [facility] Monocyte distribution width [Entitic volume] in Blood by AutomatedOrdered By: Anibal Valle on 06-05-2023 Monocyte distribution width Auto (Bld) [Entitic vol] 24.18 % 0.00-20.00 [facility] Comment on above: For adults in ED, MD W > 20.0 may be associated with a higher risk of sepsis during the first 12 hrs of hospital admission Monocytes Auto (Bld) [#/Vol] Ordered By: Anibal Valle on 06-05-2023 Monocytes (Bld) [#/Vol] 0.3 10*3/uL 0.0-0.8 [facility] Monocytes/100 WBC Auto (Bld) Ordered By: Anibal Valle on 06-05-2023 Monocytes/100 WBC (Bld) 7.5 % . [facility] Natriuretic peptide B [Mass/ Vol]Ordered By: Anibal Valle on 06-05-2023 Natriuretic peptide B (Bld) [Mass/Vol] 39.0 pg/mL 5-100 [facility] Neutrophils Auto (Bld) [#/Vo l]Ordered By: Anibal Valle on 06-05-2023 Neutrophils (Bld) [#/Vol] 2.2 10*3/uL 1.8-7.7 [facility] Neutrophils/100 WBC Auto (Bl d)Ordered By: Anibal Valle on 06-05-2023 Neutrophils/100 WBC (Bld) 49.2 % . [facility] No Panel InformationOrdered By: Anibal Valle on 06-05-2023 Estimated GFR (CKD-EPI) > 60.0 mL/Min [facility] Creatinine Clearance (Chem 97.82 [facility] Nucleated erythrocytes [Pres ence] in Blood by Automated countOrdered By: Anibal Valle on 06-05-2023 Nucleated RBC Auto Ql (Bld) 0.1 /100{WBC} 0-0.5 [facility] Platelet mean volume Auto (B ld) [Entitic vol]Ordered By: Anibal Valle on 06-05-2023 Platelet mean volume (Bld) [Entitic vol] 7.4 fL 6.3-10.7 [facility] Platelet poor plasma interna tional normalized ratio (INR) by coagulation assay (relatOrdered By: Anibal Valle on 06-05-2023 INR Coag (PPP) [Relative time] 1.0 {INR} [facility] Comment on above: INR Therapeutic Rang e [...] 06-05-2023 Platelets (Bld) [#/Vol] 336 10*3/uL 150-450 [facility] Potassium [Moles/volume] in Serum or PlasmaOrdered By: Anibal Valle on 06-05-2023 Potassium [Moles/Vol] 3.8 mmol/L 3.5-5.1 [facility] RBC Auto (Bld) [#/Vol]Ordere d By: Anibal Valle on 06-05-2023 RBC (Bld) [#/Vol] 4.29 10*6/uL 3.60-5.00 [facility] Serum or plasma anion gap de terminationOrdered By: Anibal Valle on 06-05-2023 Anion gap [Moles/Vol] 10.6 mmol/L 6.0-15.0 [facility] Sodium [Moles/volume] in Ser um or PlasmaOrdered By: Anibal Valle on 06-05-2023 Sodium [Moles/Vol] 138 mmol/L 136-145 [facility] Troponin I.cardiac [Mass/vol ume] in Serum or Plasma by Detection limit <= 0.01 ng/Ordered By: Anibal Valle on 06-05-2023 Troponin I.cardiac DL <= 0.01 ng/mL [Mass/Vol] 2.6 pg/mL 0.0-15.0 [facility] Urea nitrogen [Mass/volume] in Serum or PlasmaOrdered By: Anibal Valle on 06-05-2023 Urea nitrogen [Mass/Vol] 10 mg/dL 7- [facility] WBC Auto (Bld) [#/Vol]Ordere d By: Anibal Valle on 06-05-2023 WBC (Bld) [#/Vol] 4.4 10*3/uL 3.8-11.6 [facility] CBC AUTO DIFFon 04-05-2023 BASO # 0.0 103/ul Normal 0.0-0.1 [facility] Comment on above: Performed By: #### L ACT #### [facility] [address] [place] [address] Dr. Mirian Velasco Basophils/100 WBC (Bld) 0.8 % Normal 0.2-2.0 [facility] Comment on above: Performed By: #### L ACT #### [facility] [address] [place] [address] Dr. Mirian Velasco EO # 0.1 103/ul Normal 0.0-0.7 [facility] Comment on above: Performed By: #### L ACT #### [facility] [address] [address] [address] Mirian Velasco Eosinophils/100 WBC (Bld) 1.1 % Normal 0.9-7.0 [facility] Comment on above: Performed By: #### L ACT #### [facility] [address] [place] [address] Dr. Mirian Velasco Erythrocyte distribution width (RBC) [Ratio] 13.1 % Normal 11.0-15.0 [facility] Comment on above: Performed By: #### L ACT #### [facility] [address] [place] [address] Dr. Mirian Velasco Hematocrit (Bld) [Volume fraction] 37.6 % Normal 36.0-48.0 [facility] Comment on above: Performed By: #### L ACT #### [facility] [address] [place] [address] Dr. Mirian Velasco Hemoglobin (Bld) [Mass/Vol] 12.4 g/dL Normal 12.0-16.0 [facility] Comment on above: Performed By: #### L ACT #### [facility] [address] [place] [address] Dr. Mirian Velasco IG # 0.01 10e3/ul Normal 0.00-0.03 [facility] Comment on above: Performed By: #### L ACT #### [facility] [address] [place] [address] Dr. Mirian Velasco IG % 0.2 % Normal 0.0-0.5 [facility] Comment on above: Performed By: #### L ACT #### [facility] [address] [place] [address] Dr. Mirian Velasco LYMPH # 2.5 103/ul Normal 1.2-3.8 [facility] Comment on above: Performed By: #### L ACT #### [facility] [address] [place] [address] Dr. Mirian Velasco Lymphocytes/100 WBC (Bld) 46.2 % Normal 20.5-60.0 [facility] Comment on above: Performed By: #### L ACT #### [facility] [address] [place] [address] Dr. Mirian Velasco MANUAL DIFF REQ NO Normal [facility] Comment on above: Performed By: #### L ACT #### [facility] [address] [place] [address] Dr. Mirian Velasco MCH (RBC) [Entitic mass] 27.1 pg Normal 26.7-34.0 [facility] Comment on above: Performed By: #### L ACT #### [facility] [address] [place] [address] Dr. Mirian Velasco MCHC (RBC) [Mass/Vol] 33.0 g/dL Normal 29.9-35.2 [facility] Comment on above: Performed By: #### L ACT #### [facility] [address] [address] [address] Mirian Velasco MCV (RBC) [Entitic vol] 82.3 fL Normal 81.0-99.0 [facility] Comment on above: Performed By: #### L ACT #### [facility] [address] [address] [address] Mirian Velasco MONO # 0.4 103/ul Normal 0.3-0.8 [facility] Comment on above: Performed By: #### L ACT #### [facility] [address] [place] [address] Dr. Mirian Velasco Monocytes/100 WBC (Bld) 7.9 % Normal 1.7-12.0 [facility] Comment on above: Performed By: #### L ACT #### [facility] [address] [place] [address] Dr. Mirian Velasco NEUT # 2.3 103/ul Normal 1.4-6.5 [facility] Comment on above: Performed By: #### L ACT #### [facility] [address] [place] [address] Dr. Mirian Velasco Neutrophils/100 WBC (Bld) 43.8 % Normal 43.0-75.0 [facility] Comment on above: Performed By: #### L ACT #### [facility] [address] [address] [address] Mirian Velasco Platelet mean volume (Bld) [Entitic vol] 9.2 fL Critically low 9.5-13.5 [facility] Comment on above: Performed By: #### L ACT #### [facility] [address] [address] [address] Mirian Velasco PLT 318 103/ul Normal 150-450 [facility] Comment on above: Performed By: #### L ACT #### [facility] [address] [place] [address] Dr. Mirian Velasco RBC 4.57 106/ul Normal 4.20-5.40 [facility] Comment on above: Performed By: #### L ACT #### [facility] [address] [address] [address] Mirian Velasco WBC 5.3 103/ul Normal 4.0-11.0 [facility] Comment on above: Performed By: #### L ACT #### [facility] [address] [address] [address] Mirian Velasco PROF CHEM 8 (BAS METB)on Anion gap [Moles/Vol] 19.0 mmol/L Normal [facility] Comment on above: Performed By: #### H FAUSTO, BMP ####[facility] [address] [address]Dr. Mirian Velasco Calcium [Mass/Vol] 9.6 mg/dL Normal 8.5-10.1 [facility] Comment on above: Performed By: #### Sukumar LAMBERT, BMP ####[facility] [address] [address]DrReno Velasco Chloride [Moles/Vol] 103 mmol/L Normal 98-107 [facility] Comment on above: Performed By: #### H FAUSTO, BMP ####[facility] [address] [address]DrReno Velasco CO2 [Moles/Vol] 23.1 mmol/L Normal 21.0-32.0 [facility] Comment on above: Performed By: #### H FAUSTO, BMP ####[facility] [address] [address]Dr. Mirian Vleasco Creatinine [Mass/Vol] 0.84 mg/dL Normal 0.55-1.02 [facility] Comment on above: Performed By: #### H FAUSTO, BMP ####[facility] [address] [address]Dr. Mirian Velasco EGFR-AF CAMEROONIAN >60 Normal >=60 [facility] Comment on above: Performed By: #### H FAUSTO, BMP ####[facility] [address] [id number][address] Mirian Velasco EGFR-NON AF CAMEROONIAN >60 Normal >=60 [facility] Comment on above: Performed By: #### H FAUSTO, BMP ####[facility] [address] [address]Dr. Mirian Velasco Glucose [Mass/Vol] 129 mg/dL Critically high 74-106 [facility] Comment on above: Performed By: #### H FAUSTO, BMP ####[facility] [address] [address]Dr. Mirian Velasco Potassium [Moles/Vol] 3.1 mmol/L Critically low 3.5-5.1 [facility] Comment on above: Performed By: #### Sukumar LAMBERT, BMP ####[facility] [address] [address]Dr. Mirian Velasco Sodium [Moles/Vol] 142 mmol/L Normal 136-145 [facility] Comment on above: Performed By: #### Sukumar LAMBERT, BMP ####[facility] [address] [address]Dr. Mirian Velasco Urea nitrogen [Mass/Vol] 12.0 mg/dL Normal 7.0-18.0 [facility] Comment on above: Performed By: #### Sukumar LAMBERT, BMP ####[facility] [address] [address]Dr. Mirian Velasco Urea nitrogen/Creatinine [Mass ratio] 14.3 mg/mg Normal [facility] Comment on above: Performed By: #### Sukumar LAMBERT, BMP ####[facility] [address] [address]Dr. Mirian Velasco TROPONIN, HIGH SENSITIVITYon 04-05-2023 HSTROP 5.6 pg/mL Normal 4.0-51.3 [facility] Comment on above: Result Comment: CUT- OFF POINTS HAVE BEEN ESTABLISHED BASED ON THE FOURTH UNIVERSAL DEFINITIONS OF MYOCARDIAL INFARCTION. THE UPPER REFERENCE LIMIT (URL) OF TROPONIN, DEFINED THE 99TH PERCENTILE OF cTnI DISTRIBUTION IN A REFERENCE POPULATION, HAS BEEN CONFIRMED THE DECISION THRESHOLD FOR LA DIAGNOSIS. Performed By: #### H FAUSTO, BMP ####[facility] [address] [place], [place] [address]XxDr. Mirian Velasco CBC AUTO DIFFon 03-06-2023 BASO # 0.1 103/ul Normal 0.0-0.1 [facility] Comment on above: Performed By: #### L ACT #### [facility] [address] [address] [address] Mirian Velasco Basophils/100 WBC (Bld) 0.8 % Normal 0.2-2.0 [facility] Comment on above: Performed By: #### L ACT #### [facility] [address] [address] [address] Mirian Velasco EO # 0.1 103/ul Normal 0.0-0.7 [facility] Comment on above: Performed By: #### L ACT #### [facility] [address] [address] [address] Mirian Velasco Eosinophils/100 WBC (Bld) 1.4 % Normal 0.9-7.0 [facility] Comment on above: Performed By: #### L ACT #### [facility] [address] [address] [address] Mirian Velasco Erythrocyte distribution width (RBC) [Ratio] 13.1 % Normal 11.0-15.0 [facility] Comment on above: Performed By: #### L ACT #### [facility] [address] [address] [address] Mirian Velasco Hematocrit (Bld) [Volume fraction] 37.9 % Normal 36.0-48.0 [facility] Comment on above: Performed By: #### L ACT #### [facility] [address] [address] [address] Mirian Velasco Hemoglobin (Bld) [Mass/Vol] 12.7 g/dL Normal 12.0-16.0 [facility] Comment on above: Performed By: #### L ACT #### [facility] [address] [address] [address] Mirian Velasco IG # 0.01 10e3/ul Normal 0.00-0.03 [facility] Comment on above: Performed By: #### L ACT #### [facility] [address] [place] [address] Dr. Mirian Velasco IG % 0.2 % Normal 0.0-0.5 [facility] Comment on above: Performed By: #### L ACT #### [facility] [address] [place] [address] Dr. Mirian Velasco LYMPH # 1.8 103/ul Normal 1.2-3.8 [facility] Comment on above: Performed By: #### L ACT #### [facility] [address] [place] [address] Dr. Mirian Velasco Lymphocytes/100 WBC (Bld) 27.2 % Normal 20.5-60.0 [facility] Comment on above: Performed By: #### L ACT #### [facility] [address] [place] [address] Dr. Mirian Velasco MANUAL DIFF REQ NO Normal [facility] Comment on above: Performed By: #### L ACT #### [facility] [address] [place] [address] Dr. Mirian Velasco MCH (RBC) [Entitic mass] 27.5 pg Normal 26.7-34.0 [facility] Comment on above: Performed By: #### L ACT #### [facility] [address] [place] [address] Dr. Mirian Velasco MCHC (RBC) [Mass/Vol] 33.5 g/dL Normal 29.9-35.2 [facility] Comment on above: Performed By: #### L ACT #### [facility] [address] [place] [address] Dr. Mirian Velasco MCV (RBC) [Entitic vol] 82.0 fL Normal 81.0-99.0 [facility] Comment on above: Performed By: #### L ACT #### [facility] [address] [place] [address] Dr. Mirian Velasco MONO # 0.4 103/ul Normal 0.3-0.8 [facility] Comment on above: Performed By: #### L ACT #### [facility] [address] [address] [address] Mirian Velasco Monocytes/100 WBC (Bld) 5.5 % Normal 1.7-12.0 [facility] Comment on above: Performed By: #### L ACT #### [facility] [address] [address] [address] Mirian Velasco NEUT # 4.3 103/ul Normal 1.4-6.5 [facility] Comment on above: Performed By: #### L ACT #### [facility] [address] [place] [address] Dr. Mirian Velasco Neutrophils/100 WBC (Bld) 64.9 % Normal 43.0-75.0 [facility] Comment on above: Performed By: #### L ACT #### [facility] [address] [place] [address] Dr. Mirian Velasco Platelet mean volume (Bld) [Entitic vol] 9.4 fL Critically low 9.5-13.5 [facility] Comment on above: Performed By: #### L ACT #### [facility] [address] [place] [address] Dr. Mirian Velasco PLT 317 103/ul Normal 150-450 [facility] Comment on above: Performed By: #### L ACT #### [facility] [address] [place] [address] Dr. Mirian Velasco RBC 4.62 106/ul Normal 4.20-5.40 [facility] Comment on above: Performed By: #### L ACT #### [facility] [address] [place] [address] Dr. Mirian Velasco WBC 6.6 103/ul Normal 4.0-11.0 [facility] Comment on above: Performed By: #### L ACT #### [facility] [address] [place] [address] Dr. Mirian Velasco CULTURE BLOODon 03-06-2023 Microscopic examination of blood, culture Culture Observations: NO GROWTH AT 5 DAYS. Normal [facility] Comment on above: Performed By: #### B LDCX2 ####[facility] [address] [address]Dr. Mirian Velasco Microscopic examination of blood, culture Culture Observations: NO GROWTH AT 5 DAYS. Normal [facility] Comment on above: Performed By: #### B LDCX1 #### [facility] [address] [place] [address] Dr. Mirian Velasco LACTATE/LACTIC ACIDon 2022 Lactate [Moles/Vol] 2.2 mmol/L Critically high 0.4-2.0 [facility] Comment on above: Performed By: #### L ACT #### [facility] [address] [place] [address] Dr. Mirian Velasco LIPASEon 03-06-2023 Lipase [Catalytic activity/Vol] 53.0 U/L Critically low 73.0-393.0 [facility] Comment on above: Performed By: #### L ACT #### [facility] [address] [place] [address] Dr. Mirian Velasco PROF 14(COMP METB)on 023 Albumin [Mass/Vol] 3.4 g/dL Normal 3.4-5.0 [facility] Comment on above: Performed By: #### L ACT #### [facility] [address] [place] [address] Dr. Mirian Velasco Albumin/Globulin [Mass ratio] 1.0 {ratio} Normal [facility] Comment on above: Performed By: #### L ACT #### [facility] [address] [place] [address] Dr. Mirian Velasco ALP [Catalytic activity/Vol] 123 U/L Critically high 46-116 [facility] Comment on above: Performed By: #### L ACT #### [facility] [address] [place] [address] Dr. Mirian Velasco ALT [Catalytic activity/Vol] 33 U/L Normal 14-59 [facility] Comment on above: Performed By: #### L ACT #### [facility] [address] [place] [address] Dr. Mirian Velasco Anion gap [Moles/Vol] 13.1 mmol/L Normal [facility] Comment on above: Performed By: #### L ACT #### [facility] [address] [address] [address] Mirian Velasco AST [Catalytic activity/Vol] 31 U/L Normal 15-37 [facility] Comment on above: Performed By: #### L ACT #### [facility] [address] [address] [address] Mirian Velasco Bilirubin [Mass/Vol] 0.3 mg/dL Normal 0.2-1.0 [facility] Comment on above: Performed By: #### L ACT #### [facility] [address] [address] [address] Mirian Velasco Calcium [Mass/Vol] 8.9 mg/dL Normal 8.5-10.1 [facility] Comment on above: Performed By: #### L ACT #### [facility] [address] [address] [address] Mirian Velasco Chloride [Moles/Vol] 107 mmol/L Normal 98-107 [facility] Comment on above: Performed By: #### L ACT #### [facility] [address] [address] [address] Mirian Velasco CO2 [Moles/Vol] 25.6 mmol/L Normal 21.0-32.0 [facility] Comment on above: Performed By: #### L ACT #### [facility] [address] [address] [address] Mirian Velasco Creatinine [Mass/Vol] 0.70 mg/dL Normal 0.55-1.02 [facility] Comment on above: Performed By: #### L ACT #### [facility] [address] [address] [address] Mirian Velasco EGFR-AF CAMEROONIAN >60 Normal >=60 [facility] Comment on above: Performed By: #### L ACT #### [facility] [address] [address] [address] Mirian Velasco EGFR-NON AF CAMEROONIAN >60 Normal >=60 [facility] Comment on above: Performed By: #### L ACT #### [facility] [address] [address] [address] Mirian Velasco Globulin (S) [Mass/Vol] 3.4 g/dL Normal [facility] Comment on above: Performed By: #### L ACT #### [facility] [address] [address] [address] Mirian Velasco Glucose [Mass/Vol] 125 mg/dL Critically high 74-106 [facility] Comment on above: Performed By: #### L ACT #### [facility] [address] [address] [address] Mirian Velasco Potassium [Moles/Vol] 3.7 mmol/L Normal 3.5-5.1 [facility] Comment on above: Performed By: #### L ACT #### [facility] [address] [place] [address] Dr. Mirian Velasco Protein [Mass/Vol] 6.8 g/dL Normal 6.4-8.[address] [facility] Comment on above: Performed By: #### L ACT #### [facility] [address] [place] [address] Dr. Mirian Velasco Sodium [Moles/Vol] 142 mmol/L Normal 136-145 [facility] Comment on above: Performed By: #### L ACT #### [facility] [address] [place] [address] Dr. Mirian Velasco Urea nitrogen [Mass/Vol] 16.0 mg/dL Normal 7.0-18.0 [facility] Comment on above: Performed By: #### L ACT #### [facility] [address] [place] [address] Dr. Mirian Velasco Urea nitrogen/Creatinine [Mass ratio] 22.9 mg/mg Normal [facility] Comment on above: Performed By: #### L ACT #### [facility] [id number] Mirian Velasco PROTIMEon 03-06-2023 INR Coag (PPP) [Relative time] {INR} Normal [facility] Comment on above: Performed By: #### P T #### [facility] [address] [place] [address] Dr. Mirian Velasco INR GUIDELINES SEE BELOW Normal [facility] Comment on above: Result Comment: SAMEER RED INR: 2.0 - 3.0 CONDITIONS NOT LISTED BELOW 2.5 - 3.5 FOR PROSTHETIC HEART VALVE REPLACEMENT 2.5 - 3.5 RECURRENT THROMBOSIS Performed By: #### P T #### [facility] [address] [address] [address] Mirian Velasco PT Coag (PPP) [Time] 9.8 s Normal 9.0-11.6 [facility] Comment on above: Performed By: #### P T #### [facility] [address] [address] [address] Mirian Velasco TROPONIN, HIGH SENSITIVITYon 03-06-2023 HSTROP 4.4 pg/mL Normal 4.0-51.3 [facility] Comment on above: Result Comment: CUT- OFF POINTS HAVE BEEN ESTABLISHED BASED ON THE FOURTH UNIVERSAL DEFINITIONS OF MYOCARDIAL INFARCTION. THE UPPER REFERENCE LIMIT (URL) OF TROPONIN, DEFINED THE 99TH PERCENTILE OF cTnI DISTRIBUTION IN A REFERENCE POPULATION, HAS BEEN CONFIRMED THE DECISION THRESHOLD FOR LA DIAGNOSIS. Performed By: #### L ACT #### [facility] [address] [address] [address] Mirian Velasco Bacteria identified Aer cx N om (Unsp spec)Ordered By: Niecy Duron on 03-02-2023 Superficial Wound Culture Methicillin Resis Staph Aureus [facility] CT LSPINE WO CONon 3 CT LSPINE [...] by: NANCY BELLE Date: 2023-02-19 06:42 Normal [facility] XR ESOPHAGRAMon 12-26-2022 [facility] NURSING PROGon 12-08-2022 NURSING PROG HNO ID: [id number] Author: Lisa Contreras RN Service: Nursing Author Type: Registered Nurse Type: Nursing Progress Note Filed: 12/08/2022 11:28 AM Note Text: [facility] ENDOSCOPY POST PROCEDURE FOLLOW UP CALL [phone] (home) Date Phone Call Made: 12/08/2022 Attempt: [...] experience more pleasant? No Lisa Contreras RN [facility] ANES POSTPROC EVALon 023 ANES POSTPROC EVAL HNO ID: [id number] Author: Andres Sheets DO Service: Anesthesiology Author Type: Anesthesiologist Type: Anesthesia Postprocedure Evaluation Filed: 12/07/2022 12:44 PM Note Text: POST ANESTHESIA EVALUATION NOTE : 1970 Procedure Summary Date: 12/07/22 Room / Location: [facility] Anesthesia Start: 1034 Anesthesia Stop: 105 Procedures: EGD - THERAPEUTIC, EUS, OR TUBE [...] December 07, 2022 TIME: 12:44 PM CSN: [id number] [facility] ANES PRE-OPon 12-07-2022 ANES PRE-OP HNO ID: [id number] Author: Andres Sheets DO Service: Anesthesiology Author [...] December 07, 2022 TIME: 9:40 AM CSN: [id number] [facility] HISTORY PHYSICALon 3 HISTORY PHYSICAL HNO ID: [id number] Author: Soraida Mathis PA-C Service: Gastroenterology Author Type: Physician Executive Vp Type: HANDP Filed: 12/07/2022 9:48 AM Note [...] PAIN, N/V/D Medication reconciliation list reviewed in [facility]. Past medical history, past surgical history, social history and family history reviewed and updated in [facility]. ALLERGIES Allergies: Risperidone Intolerance Comment:Breast discharge SEE [facility] FOR VITALS BP 109/74 Pulse [...] Leal DATE: 12/07/2022 TIME: 9:41 AM Normal [facility] Upper GI endoscopyon 023 Upper GI endoscopy [facility] Gastrointestinal Endoscopy Patient Name: Mary [...] by the physician, the nurse and the manager harbor in the pre-procedure area in the endoscopy [...] previously scheduled. Procedure Code(s): --- Professional --- 46743, Esophagogastroduodenos copy, flexible, transoral; with dilation of gastric/duodenal stricture(s) (eg, balloon, bougie) Diagnosis Code(s): --- Professional --- K21.00, Gastro-esophageal reflux disease with esophagitis, without bleeding K31.84, Gastroparesis CPT copyright 2020 [employer]. All rights reserved. The codes documented in this report are preliminary and upon office spec review may be revised to meet current compliance requirements. Attending Participation: I personally performed the entire procedure. Scope In: 10:39:12 AM Scope Out: 10:46:13 AM MD Winston Diaz, MD 12/07/2022 10 (more content not included)... [facility] ANES POSTPROC EVALon 023 ANES POSTPROC EVAL HNO ID: [id number] Author: Annabel Burton MD Service: Anesthesiology Author [...] December 05, 2022 TIME: 2:00 PM CSN: [id number] [facility] ANES PRE-OPon 12-05-2022 ANES PRE-OP HNO ID: [id number] Author: Annabel Burton MD Service: Anesthesiology Author Type: Physician Type: Anesthesia Preprocedure Evaluation Filed: 12/05/2022 8:28 AM Note Text: ANESTHESIOLOGY DAY OF SURGERY NOTE : 1970 Procedure Information Date/Time: 12/05/22 0900 Scheduled providers: Isra Masters DO Procedure: SIGMOIDOSCOPY Location: [facility] Estimated body mass index is [...] December 05, 2022 TIME: 8:26 AM CSN: [id number] Normal [facility] Flexible Sigmoidoscopyon Flexible sigmoidoscopy [facility] Gastrointestinal Endoscopy Patient Name: Mary Leal Procedure Date: 12/05/2022 8:55 AM Date of : 1970 Admit Type: Outpatient Age: 52 Room: [address] [address] Gender: Female Note Status: Finalized Attending MD: [...] present medications. Procedure Code(s): --- Professional --- 81544, 52, Sigmoidoscopy, flexible; diagnostic, including collection of specimen(s) by brushing or washing, when performed (separate procedure) Diagnosis Code(s): --- Professional --- K59.00, Constipation, unspecified CPT copyright 2020 [employer]. All rights reserved. The codes documented in this report are preliminary and upon office spec review may be revised to meet current compliance requirements. Attending Participation: I personally performed the entire procedure. Scope In: 9:07:04 AM Scope Out: 9:09:[address] Isra Masters, DO Isra Masters DO 12/05/2022 9:13:05 AM This report has been signed electronically by Isra Masters DO Number of Addenda: 0 Note Initiated On: 12/05/2022 8:55 AM Estimated Blood Loss: Estimated blood loss: none. Normal [facility] HISTORY PHYSICALon HISTORY PHYSICAL HNO ID: [id number] Author: Lashanda Dorado PA-C Service: Gastroenterology Author Type: Physician Executive Vp Type: HANDP Filed: 12/05/2022 8:43 AM Note [...] PAIN, N/V/D Medication reconciliation list reviewed in [facility]. Past medical history, past surgical history, social history and family history reviewed and updated in [facility]. ALLERGIES Allergies: Risperidone Intolerance Comment:Breast discharge SEE [facility] FOR VITALS There were no vitals [...] Mary Leal DATE: 12/05/2022 TIME: 8:42 AM [facility] NURSING PROGon 12-05-2022 NURSING PROG HNO ID: [id number] Author: Lisa Contreras RN Service: ? Author Type: Registered Nurse Type: Nursing Progress Note Filed: 12/05/2022 1:07 PM Note Text: [facility] ENDOSCOPY PRE PROCEDURE CALL Akiko. I'm calling from [facility] endoscopy to provide you with the information for your surgery/procedure tomorrow. Spoke to: Patient CONFIRM Procedure Planned with patient:Esophagogastro duodenoscopy(EGD) with or without biopies based on clinical findings, removal of polyps or lesions Are you familiar with where [facility] is located?yes Address [address] [facility] Patient instructed to enter through the main hospital entrance off [address] at the [address] through the revolving doors and check in at the main desk with your dedicated driver's license and insurance card. yes When anesthesia or sedation is being given: Patient instructed you must have an adult dedicated driver because you will not be able to work or drive for the rest of the day after your test.yes Can you please confirm the name and relationship of your dedicated driver. tbd What is the best number for your dedicated driver to be reached at tomorrow for updates? tbd Your dedicated driver is allowed to wait here with [...] Do not wear makeup, lotion, or finger solomon islander. yes Patient instructed: Please bring a [...] given Any barriers to Patient learning (confusion? 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 If patient needs to reschedule please call: [phone] [facility] phone number: [phone] Type of instruction given: Verbal by telephone contact. Normal [facility] NURSING PROGon 12-02-2022 NURSING PROG HNO ID: [id number] Author: Isra Harman RN Service: ? Author Type: Registered Nurse Type: Nursing Progress Note Filed: 12/02/2022 10:54 AM Note Text: [facility] ENDOSCOPY PRE PROCEDURE CALL Akiko. I'm calling from [facility] endoscopy to provide you with the information for your surgery/procedure tomorrow. Spoke to: Patient CONFIRM Procedure Planned with patient: Are you familiar with where [facility] is located?yes Address [facility] Patient instructed to enter through the main hospital entrance off [address] at the [address] through the revolving doors and check in at the main desk with your dedicated driver's license and insurance card. yes When anesthesia or sedation is being given: Patient instructed you must have an adult dedicated driver because you will not be able to work or drive for the rest of the day after your test.yes Can you please confirm the name and relationship of your dedicated driver. Rich What is the best number for your dedicated driver to be reached at tomorrow for updates? [phone] Your dedicated driver is allowed to wait here with [...] Do not wear makeup, lotion, or finger solomon islander. yes Patient instructed: Please bring a [...] given Any barriers to Patient learning (confusion? 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 If patient needs to reschedule please call: [phone] [facility] phone number: [phone] Type of instruction given: Verbal by telephone contact. Normal [facility] AMYLASEon 10-20-2022 Amylase [Catalytic activity/Vol] 33 U/L Normal 25-115 [facility] Comment on above: Performed By: #### L ACT #### [facility] [address] [place] [address] Dr. Mirian Velasco CBC AUTO DIFFon 10-20-2022 BASO # 0.0 103/ul Normal 0.0-0.1 [facility] Comment on above: Performed By: #### P T #### [facility] [address] [address] [address] Mirian Velasco Basophils/100 WBC (Bld) 0.2 % Normal 0.2-2.0 [facility] Comment on above: Performed By: #### P T #### [facility] [address] [place] [address] Dr. Mirian Velasco EO # 0.1 103/ul Normal 0.0-0.7 [facility] Comment on above: Performed By: #### P T #### [facility] [address] [address] [address] Mirian Velacso Eosinophils/100 WBC (Bld) 0.6 % Critically low 0.9-7.0 [facility] Comment on above: Performed By: #### P T #### [facility] [address] [place] [address] Dr. Mirian Velasco Erythrocyte distribution width (RBC) [Ratio] 13.6 % Normal 11.0-15.0 [facility] Comment on above: Performed By: #### P T #### [facility] [address] [place] [address] Dr. Mirian Velasco Hematocrit (Bld) [Volume fraction] 41.0 % Normal 36.0-48.0 [facility] Comment on above: Performed By: #### P T #### [facility] [address] [place] [address] Dr. Mirian Velasco Hemoglobin (Bld) [Mass/Vol] 13.5 g/dL Normal 12.0-16.0 [facility] Comment on above: Performed By: #### P T #### [facility] [address] [address] [address] Mirian Velasco IG # 0.06 10e3/ul Critically high 0.00-0.03 [facility] Comment on above: Performed By: #### P T #### [facility] [address] [address] [address] Mirian Velasco IG % 0.4 % Normal 0.0-0.5 [facility] Comment on above: Performed By: #### P T #### [facility] [address] [place] [address] Dr. Mirian Velasco LYMPH # 2.5 103/ul Normal 1.2-3.8 [facility] Comment on above: Performed By: #### P T #### [facility] [address] [place] [address] Dr. Mirian Velasco Lymphocytes/100 WBC (Bld) 17.5 % Critically low 20.5-60.0 [facility] Comment on above: Performed By: #### P T #### [facility] [address] [place] [address] Dr. Mirian Velasco MANUAL DIFF REQ NO Normal [facility] Comment on above: Performed By: #### P T #### [facility] [address] [place] [address] Dr. Mirian Velasco MCH (RBC) [Entitic mass] 28.1 pg Normal 26.7-34.0 [facility] Comment on above: Performed By: #### P T #### [facility] [address] [place] [address] Dr. Mirian Velasco MCHC (RBC) [Mass/Vol] 32.9 g/dL Normal 29.9-35.2 [facility] Comment on above: Performed By: #### P T #### [facility] [address] [place] [address] Dr. Mirian Velasco MCV (RBC) [Entitic vol] 85.2 fL Normal 81.0-99.0 [facility] Comment on above: Performed By: #### P T #### [facility] [address] [place] [address] Dr. Mirian Velasco MONO # 0.7 103/ul Normal 0.3-0.8 [facility] Comment on above: Performed By: #### P T #### [facility] [address] [place] [address] Dr. Mirian Velasco Monocytes/100 WBC (Bld) 4.5 % Normal 1.7-12.0 [facility] Comment on above: Performed By: #### P T #### [facility] [address] [place] [address] Dr. Mirian Velasco NEUT # 11.0 103/ul Critically high 1.4-6.5 [facility] Comment on above: Performed By: #### P T #### [facility] [address] [place] [address] Dr. Mirian Velasco Neutrophils/100 WBC (Bld) 76.8 % Critically high 43.0-75.0 [facility] Comment on above: Performed By: #### P T #### [facility] [address] [place] [address] Dr. Mirian Velasco Platelet mean volume (Bld) [Entitic vol] 8.7 fL Critically low 9.5-13.5 [facility] Comment on above: Performed By: #### P T #### [facility] [address] [place] [address] Dr. Mirian Velasco PLT 390 103/ul Normal 150-450 [facility] Comment on above: Performed By: #### P T #### [facility] [address] [place] [address] Dr. Mirian Velasco RBC 4.81 106/ul Normal 4.20-5.40 [facility] Comment on above: Performed By: #### P T #### [facility] [address] [place] [address] Dr. Mirian Velasco WBC 14.3 103/ul Critically high 4.0-11.0 [facility] Comment on above: Performed By: #### P T #### [facility] [address] [place] [address] ABD/PELV W CONon [...] SALMA AMEZQUITA Date: 2022-10-20 12:35 Normal [facility] CULTURE BLOODon 10-20-2022 Microscopic examination of blood, culture Culture Observations: NO GROWTH AT 5 DAYS. Normal [facility] Comment on above: Performed By: #### B [id number] ####[facility] [id number] [place], [place] [address]Jd. Mirian Velasco Microscopic examination of blood, culture Culture Observations: NO GROWTH AT 5 DAYS. Normal [facility] Comment on above: Performed By: #### B LDCX1 #### [facility] [address] [address] [address] 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 NO POTENTIAL PATHOGENS SEEN. Normal [facility] Comment on above: Performed By: #### U RCX #### [facility] [address] [address] [address] Mirian Velasco ER URINE PROFILEon 2 Bilirubin Ql (U) Negative Normal NEGATIVE [facility] Comment on above: Performed By: #### P T #### [facility] [address] [address] [address] Mirian Velasco Clarity (U) CLEAR Normal CLEAR [facility] Comment on above: Performed By: #### P T #### [facility] [address] [address] [address] Mirian Velasco Color (U) LT. YELLOW Normal YELLOW [facility] Comment on above: Performed By: #### P T #### [facility] [address] [place] [address] Dr. Mirian Velasco ERUAHD A micrscopic examination will be performed if indicated. Normal [facility] Comment on above: Performed By: #### P T #### [facility] [address] [place] [address] Dr. Mirian Velasco Glucose Ql (U) Negative Normal NEGATIVE [facility] Comment on above: Performed By: #### P T #### [facility] [address] [address] [address] Mirian Velasco Hemoglobin Ql (U) Negative Normal NEGATIVE [facility] Comment on above: Performed By: #### P T #### [facility] [address] [place] [address] Dr. Mirian Velasco Ketones Ql (U) Negative Normal NEGATIVE [facility] Comment on above: Performed By: #### P T #### [facility] [address] [place] [address] Dr. Mirian Velasco LEUKOCYTES SMALL Abnormal NEGATIVE [facility] Comment on above: Performed By: #### P T #### [facility] [address] [place] [address] Dr. Mirian Velasco Nitrite Ql (U) Negative Normal NEGATIVE [facility] Comment on above: Performed By: #### P T #### [facility] [address] [place] [address] Dr. Mirian Velasco pH (U) 7.0 [pH] Normal 5-9 [facility] Comment on above: Performed By: #### P T #### [facility] [address] [place] [address] Dr. Mirian Velasco SPEC GRAVITY 1.015 Normal 1.005-<=1.025 [facility] Comment on above: Performed By: #### P T #### [facility] [address] [place] [address] Dr. Mirian Velasco UA PROTEIN Negative Normal NEGATIVE/ TRACE [facility] Comment on above: Performed By: #### P T #### [facility] [address] [place] [address] Dr. Mirian Velasco UR MICRO IND INDICATED Normal [facility] Comment on above: Performed By: #### P T #### [facility] [address] [place] [address] Dr. Mirian Velasco Urobilinogen Qn (U) 0.2 {Lyubov'U}/dL Normal 0.2 - 1. 0 [facility] Comment on above: Performed By: #### P T #### [facility] [address] [place] [address] Dr. Mirian Velasco LACTATE/LACTIC ACIDon 2021 Lactate [Moles/Vol] 1.3 mmol/L Normal 0.4-1.9 [facility] Comment on above: Performed By: #### L ACT #### [facility] [address] [place] [address] Dr. Mirian Velasco LIPASEon 10-20-2022 Lipase [Catalytic activity/Vol] 49.0 U/L Critically low 73.0-393.0 [facility] Comment on above: Performed By: #### P T #### [facility] [address] [place] [address] Dr. Mirian Velasco PROF 14(COMP METB)on 022 Albumin [Mass/Vol] 3.2 g/dL Critically low 3.4-5.0 [facility] Comment on above: Performed By: #### P T #### [facility] [address] [place] [address] Dr. Mirian Velasco Albumin/Globulin [Mass ratio] 0.9 {ratio} Normal [facility] Comment on above: Performed By: #### P T #### [facility] [address] [place] [address] Dr. Mirian Velasco ALP [Catalytic activity/Vol] 129 U/L Critically high 46-116 [facility] Comment on above: Performed By: #### P T #### [facility] [address] [place] [address] Dr. Mirian Velasco ALT [Catalytic activity/Vol] 25 U/L Normal 14-59 [facility] Comment on above: Performed By: #### P T #### [facility] [address] [place] [address] Dr. Mirian Velasco Anion gap [Moles/Vol] 10.7 mmol/L Normal [facility] Comment on above: Performed By: #### P T #### [facility] [address] [place] [address] Dr. Mirian Velasco AST [Catalytic activity/Vol] 20 U/L Normal 15-37 [facility] Comment on above: Performed By: #### P T #### [facility] [address] [place] [address] Dr. Mirian Velasco Bilirubin [Mass/Vol] 0.5 mg/dL Normal 0.2-1.0 [facility] Comment on above: Performed By: #### P T #### [facility] [address] [place] [address] Dr. Mirian Velasco Calcium [Mass/Vol] 9.2 mg/dL Normal 8.5-10.1 [facility] Comment on above: Performed By: #### P T #### [facility] [address] [place] [address] Dr. Mirian Velasco Chloride [Moles/Vol] 102 mmol/L Normal 98-107 [facility] Comment on above: Performed By: #### P T #### [facility] [address] [address] [address] Mirian Velasco CO2 [Moles/Vol] 30.0 mmol/L Normal 21.0-32.0 [facility] Comment on above: Performed By: #### P T #### [facility] [address] [address] [address] Mirian Velasco Creatinine [Mass/Vol] 0.68 mg/dL Normal 0.55-1.02 [facility] Comment on above: Performed By: #### P T #### [facility] [address] [place] [address] Dr. Mirian Velasco EGFR-AF CAMEROONIAN >60 Normal >=60 [facility] Comment on above: Performed By: #### P T #### [facility] [address] [place] [address] Dr. Mirian Velasco EGFR-NON AF CAMEROONIAN >60 Normal >=60 [facility] Comment on above: Performed By: #### P T #### [facility] [address] [place] [address] Dr. Mirian Velasco Globulin (S) [Mass/Vol] 3.7 g/dL Normal [facility] Comment on above: Performed By: #### P T #### [facility] [address] [place] [address] Dr. Mirian Velasco Glucose [Mass/Vol] 109 mg/dL Critically high 74-106 [facility] Comment on above: Performed By: #### P T #### [facility] [address] [place] [address] Dr. Mirian Velasco Potassium [Moles/Vol] 3.7 mmol/L Normal 3.5-5.1 [facility] Comment on above: Performed By: #### P T #### [facility] [address] [place] [address] Dr. Mirian Velasco Protein [Mass/Vol] 6.9 g/dL Normal 6.4-8.2 [facility] Comment on above: Performed By: #### P T #### [facility] [address] [place] [address] Dr. Mirian Velasco Sodium [Moles/Vol] 139 mmol/L Normal 136-145 [facility] Comment on above: Performed By: #### P T #### [facility] [address] [place] [address] Dr. Mirian Velasco Urea nitrogen [Mass/Vol] 13.0 mg/dL Normal 7.0-18.0 [facility] Comment on above: Performed By: #### P T #### [facility] [address] [place] [address] Dr. Mirian Velasco Urea nitrogen/Creatinine [Mass ratio] 19.1 mg/mg Normal [facility] Comment on above: Performed By: #### P T #### [facility] [address] [place] [address] Dr. Mirian Velasco URINE MICROSCOPIC ONLYon BACTERIA TRACE Abnormal NONE SEEN [facility] Comment on above: Performed By: #### P T #### [facility] [address] [place] [address] Dr. Mirian Velasco Bacteria identified Cx Nom (U) INDICATED Normal [facility] Comment on above: Performed By: #### P T #### [facility] [address] [place] [address] Dr. Mirian Velasco CAST NONE SEEN Normal NONE SEEN [facility] Comment on above: Performed By: #### P T #### [facility] [address] [place] [address] Dr. Mirian Velasco Crystals LM Nom (Urine sed) NONE SEEN Normal NONE SEEN [facility] Comment on above: Performed By: #### P T #### [facility] [address] [place] [address] Dr. Mirian Velasco Epithelial cells LM Ql (Urine sed) MODERATE Abnormal NONE SEEN /RARE [facility] Comment on above: Performed By: #### P T #### [facility] [address] [place] [address] Dr. Mirian Velasco MUCOUS NONE SEEN Normal NONE SEEN [facility] Comment on above: Performed By: #### P T #### [facility] [address] [address] [address] Mirian Velasco RBC NONE SEEN Abnormal 0-2 [facility] Comment on above: Performed By: #### P T #### [facility] [address] [address] [address] Mirian Velasco WBC 2-5 Abnormal NONE SEEN [facility] Comment on above: Performed By: #### P T #### [facility] [address] [address] [address] Mirian Velasco YEAST PRESENT Abnormal NONE SEEN [facility] Comment on above: Result Comment: RARE BUDDING YEAST Performed By: #### P T #### [facility] [address] [address] [address] Mirian Velasco POINT OF CARE GLUCOSEon 10-06 Glucose [Mass/Vol] 131 mg/dL Critically high 74-106 [facility] Comment on above: Performed By: #### P OCGLUC ####[facility] [address] [address]Dr. Mirian Velasco Glucose [Mass/Vol] 113 mg/dL Critically high 74-106 [facility] Comment on above: Performed By: #### P OCGLUC ####[facility] [address] [address]Dr. Mirian Velasco XR FOOT RT 2Von 10-17-2022 [...] NICKI DACOSTA Date: 2022-10-17 18:04 Normal [facility] Covid-19 PCR (CVDTBH)on SARS-CoV-2 (COVID-19) RNA JOSÉ MIGUEL+probe Ql (Unsp spec) Not detected Normal NOT DETECTED [facility] Comment on above: Result Comment: This test is not yet approved or cleared by the [place] FDA. When there are no FDA-approved or cleared tests available, and other criteria are met, FDA can make tests available under an emergency access mechanism called an Emergency Use Authorization (EUA). The EUA for this test is supported by the Enrollment Services Vice President of Health and Human Service's (HHS's) declaration [...] consistent with SARS-CoV-2. Performed By: #### C [facility] #### [facility] [address] [place] [address] Dr. Mirian Velasco Diagnostic Mammogram, Unilat eral [...] VERY IMPORTANT TO YOUR HEALTH. THE CURRENT [place] [employer] GUIDELINES RECOMMENDS ANNUAL MAMMOGRAPHY BEGINNING AT AGE 42 THIS FACILITY USES A REMINDER SYSTEM TO ENSURE ALL PATIENTS RECEIVE REMINDER NOTIFICATIONS AT THE APPROPRIATE TIME BASED ON THE RECOMMENDATIONS OF THIS EXAM. Board Certified Radiologist. Accredited by the ACR and FDA. Report reported and signed by Dawna Lizarraga on 09/28/2022 1307 Normal [facility] CBC AUTO DIFFon 09-26-2022 BASO # 0.1 103/ul Normal 0.0-0.1 [facility] Comment on above: Performed By: #### L ACT #### [facility] [address] [address] [address] Mirian Velasco Basophils/100 WBC (Bld) 0.8 % Normal 0.2-2.0 [facility] Comment on above: Performed By: #### L ACT #### [facility] [address] [address] [address] Mirian Velasco EO # 0.1 103/ul Normal 0.0-0.7 [facility] Comment on above: Performed By: #### L ACT #### [facility] [address] [address] [address] Mirian Velasco Eosinophils/100 WBC (Bld) 1.5 % Normal 0.9-7.0 [facility] Comment on above: Performed By: #### L ACT #### [facility] [address] [place] [address] Dr. Mirian Velasco Erythrocyte distribution width (RBC) [Ratio] 13.4 % Normal 11.0-15.0 [facility] Comment on above: Performed By: #### L ACT #### [facility] [address] [place] [address] Dr. Mirian Velasco Hematocrit (Bld) [Volume fraction] 41.3 % Normal 36.0-48.0 [facility] Comment on above: Performed By: #### L ACT #### [facility] [address] [place] [address] Dr. Mirian Velasco Hemoglobin (Bld) [Mass/Vol] 13.4 g/dL Normal 12.0-16.0 [facility] Comment on above: Performed By: #### L ACT #### [facility] [address] [place] [address] Dr. Mirian Velasco IG # 0.04 10e3/ul Critically high 0.00-0.03 [facility] Comment on above: Performed By: #### L ACT #### [facility] [address] [address] [address] Mirian Velasco IG % 0.5 % Normal 0.0-0.5 [facility] Comment on above: Performed By: #### L ACT #### [facility] [address] [address] [address] Mirian Velasco LYMPH # 2.5 103/ul Normal 1.2-3.8 [facility] Comment on above: Performed By: #### L ACT #### [facility] [address] [address] [address] Mirian Velasco Lymphocytes/100 WBC (Bld) 27.7 % Normal 20.5-60.0 [facility] Comment on above: Performed By: #### L ACT #### [facility] [address] [place] [address] Dr. Mirian Velasco MANUAL DIFF REQ NO Normal [facility] Comment on above: Performed By: #### L ACT #### [facility] [address] [place] [address] Dr. Mirian Velasco MCH (RBC) [Entitic mass] 27.6 pg Normal 26.7-34.0 [facility] Comment on above: Performed By: #### L ACT #### [facility] [address] [place] [address] Dr. Mirian Velasco MCHC (RBC) [Mass/Vol] 32.4 g/dL Normal 29.9-35.2 [facility] Comment on above: Performed By: #### L ACT #### [facility] [address] [place] [address] Dr. Mirian Velasco MCV (RBC) [Entitic vol] 85.0 fL Normal 81.0-99.0 [facility] Comment on above: Performed By: #### L ACT #### [facility] [address] [place] [address] Dr. Mirian Velasco MONO # 0.6 103/ul Normal 0.3-0.8 [facility] Comment on above: Performed By: #### L ACT #### [facility] [address] [place] [address] Dr. Mirian Velasco Monocytes/100 WBC (Bld) 6.9 % Normal 1.7-12.0 [facility] Comment on above: Performed By: #### L ACT #### [facility] [address] [address] [address] Mirian Velasco NEUT # 5.6 103/ul Normal 1.4-6.5 [facility] Comment on above: Performed By: #### L ACT #### [facility] [address] [place] [address] Dr. Mirian Velasco Neutrophils/100 WBC (Bld) 62.6 % Normal 43.0-75.0 [facility] Comment on above: Performed By: #### L ACT #### [facility] [address] [place] [address] Dr. Mirian Velasco Platelet mean volume (Bld) [Entitic vol] 8.6 fL Critically low 9.5-13.5 [facility] Comment on above: Performed By: #### L ACT #### [facility] [address] [place] [address] Dr. Mirian Velasco PLT 372 103/ul Normal 150-450 [facility] Comment on above: Performed By: #### L ACT #### [facility] [address] [place] [address] Dr. Mirian Velasco RBC 4.86 106/ul Normal 4.20-5.40 [facility] Comment on above: Performed By: #### L ACT #### [facility] [address] [place] [address] Dr. Mriian Velasco WBC 8.9 103/ul Normal 4.0-11.0 [facility] Comment on above: Performed By: #### L ACT #### [facility] [address] [address] [address] Mirian Velasco PROF CHEM 8 (BAS METB)on Anion gap [Moles/Vol] 8.0 mmol/L Normal [facility] Comment on above: Performed By: #### P T #### [facility] [address] [place] [address] Dr. Mirian Velasco Calcium [Mass/Vol] 9.0 mg/dL Normal 8.5-10.1 [facility] Comment on above: Performed By: #### P T #### [facility] [address] [place] [address] Dr. Mirian Velasco Chloride [Moles/Vol] 106 mmol/L Normal 98-107 [facility] Comment on above: Performed By: #### P T #### [facility] [address] [address] [address] Mirian Velasco CO2 [Moles/Vol] 30.3 mmol/L Normal 21.0-32.0 [facility] Comment on above: Performed By: #### P T #### [facility] [address] [address] [address] Mirian Velasco Creatinine [Mass/Vol] 0.71 mg/dL Normal 0.55-1.02 [facility] Comment on above: Performed By: #### P T #### [facility] [address] [place] [address] Dr. Mirian Velasco EGFR-AF CAMEROONIAN >60 Normal >=60 [facility] Comment on above: Performed By: #### P T #### [facility] [address] [address] [address] Mirian Velasco EGFR-NON AF CAMEROONIAN >60 Normal >=60 [facility] Comment on above: Performed By: #### P T #### [facility] [address] [address] [address] Mirian Velasco Glucose [Mass/Vol] 81 mg/dL Normal 74-[address] [facility] Comment on above: Performed By: #### P T #### [facility] [address] [address] [address] Mirian Velasco Potassium [Moles/Vol] 4.3 mmol/L Normal 3.5-5.1 [facility] Comment on above: Performed By: #### P T #### [facility] [address] [address] [address] Mirian Velasco Sodium [Moles/Vol] 140 mmol/L Normal 136-[address] [facility] Comment on above: Performed By: #### P T #### [facility] [address] [address] [address] Mirian Velasco Urea nitrogen [Mass/Vol] 16.0 mg/dL Normal 7.0-18.0 [facility] Comment on above: Performed By: #### P T #### [facility] [address] [address] [address] Mirian Velasco Urea nitrogen/Creatinine [Mass ratio] 22.5 mg/mg Normal [facility] Comment on above: Performed By: #### P T #### [facility] [address] [address] [address] Mirian Velasco C reactive protein [Mass/vol ume] in Serum or PlasmaOrdered By: Beto Snyder on 09-22-2022 CRP [Mass/Vol] 0.6 mg/dL 0.0-1.0 [facility] C-Reactive Proteinon 022 C-Reactive Protein 0.6 mg/dL Normal 0.0-1.0 mg/dL [facility] [employer] Other Erythrocyte Sedimentation Ra lian 09-22-2022 ESR (Bld) [Velocity] 4 mm/h Normal 0-29 [facility] [employer] Other Erythrocyte sedimentation ra te by Photometric methodOrdered By: Beto Snyder on 09-22-2022 ESR Photometric method (Bld) [Velocity] 4 mm/hr 0-29 [facility] Serum nuclear antibody titer Ordered By: Beto Snyder on 09-22-2022 Nuclear Ab (S) [Titer] Negative . [facility] Comment on above: Negative <1:80 Borde rline 1:80 Positive >1:80ICAP nomenclature: AC-0For more information about Hep-2 cell patterns useANApatterns.org, the official website for theInternational Consensus on Antinuclear Antibody (CHUYITA)Patterns (ICAP).Performed at: [facility] [employer] [facility] [address] [id number] Director: Erick Neville PhD, Phone: [phone] Serum or plasma rheumatoid f actor measurement (units/volume)Ordered By: Beto Snyder on 09-22-2022 Rheumatoid factor Qn [IU]/mL <14.0 [facility] Comment on above: Performed at: [employer] [facility] [employer] [facility] [address] [id number] Director: Erick Neville PhD, Phone: [phone] Serum or plasma thyroxine (T 4) measurement (mass/volume)Ordered By: Beto Snyder on 09-22-2022 T4 [Mass/Vol] 9.82 ug/dL 5.39-11.82 [facility] Serum or plasma uric acid me asurement (mass/volume)Ordered By: Beto Snyder on 09-22-2022 Urate [Mass/Vol] 4.2 mg/dL 2.6-7.2 [facility] TSH DL <= 0.005 mIU/L QnOrde red By: Beto Snyder on 09-22-2022 TSH Qn 1.98 m[IU]/L 0.45-5.33 [facility] Thyroid Stimulating Hormoneo n 09-22-2022 TSH Qn 1.87235742216 m[IU]/L Normal 0.45-5 .33 u[iU]/mL 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 Other Thyroxine (T4) Totalon 09-22 Thyroxine (T4) Total 9.82 ug/dL Normal 5.39-11 .82 ug/dL 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 Other Uric Acidon 09-22-2022 Urate [Mass/Vol] 4.9736811 mg/dL Normal 2.6-7.2 mg/dL 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 Other XR knee BI 2Von 09-22-2022 XR knee BI 2V [facility] [employer] Other XR knee BI 2V [facility] [employer] Other XR knee BI 2V [address] [place] [address] [employer] Other XR knee BI 2V [place], [place] [id number] [place] [address] [employer] Other XR knee BI 2V XRay Report [employer] Other XR knee BI 2V Signed Frederic [employer] Other XR knee BI 2V Patient: Darrian Leal MR#: [id number] 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 Other XR knee BI 2V 863 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 Other XR knee BI 2V : 1970 Acct:[id number] 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 Other XR knee BI 2V Age/Sex: 52 / F ADM Date: 09/22/22 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 Other XR knee BI 2V Loc: [facility]XD Room: Type : REG CLI 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 Other XR knee BI 2V Attending Dr: Beto Snyder MD 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 Other XR knee BI 2V Copies to: Beto Snyder MD 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 Other XR knee BI 2V Ordering Provider: Beto Snyder MD 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 Other XR knee BI 2V Date of Service: 09/22/22 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 Other XR knee BI 2V XR/XR knee BI 2V: Knee pain 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 Other XR knee BI 2V XR knee BI 2V 09/22/2022 9:23 AM 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 Other XR knee BI 2V SIGNS AND SYMPTOMS: Bilateral knee pain right greater than left 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 Other XR knee BI 2V PROTOCOL: Frontal an d lateral radiographs of the bilateral knees 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 Other XR knee BI 2V COMPARISON: None 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 Other XR knee BI 2V FINDINGS: 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 Other XR knee BI 2V There is evidence of prior ACL repair in the left knee with mild narrowing of the weightbearing 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 Other XR knee BI 2V joint spaces on the left. The joint spaces are otherwise preserved. There is no fracture or 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 Other XR knee BI 2V dislocation. No join t effusion or soft tissue swelling. 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 Other XR knee BI 2V XR/XR knee BI 2V 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 Other XR knee BI 2V IMPRESSION: [facility] [employer] Other XR knee BI 2V Status post ACL repa ir on the left. 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 Other XR knee BI 2V Mild degenerative changes are noted in the weightbearing joint spaces of the left. 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 Other XR knee BI 2V No acute bony injury. 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 Other XR knee BI 2V Impression dictated by: Howie Garcia M.D.09/22/2022 2:17 PM 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 Other XR knee BI 2V Dictation Location: [place] [address] 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 Other XR knee BI 2V Transcribed By: PWS 09/22/22 [facility] 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 Other XR knee BI 2V Dictated By: Howie Garcia II, MD 09/22/22 [facility] 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 Other XR knee BI 2V Signed By: 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 Other XR knee BI 2V 09/22/22 [facility] [employer] Other XR shoulder BI min 2Von 09-06 XR shoulder BI min 2V XR/XR shoulder BI min 2V: Shoulder pain 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 Other XR shoulder BI min 2V XR shoulder BI min 2V 09/22/2022 9:23 AM 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 Other XR shoulder BI min 2V SIGNS AND SYMPTOMS : Bilateral shoulder pain with limited range of motion 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 Other XR shoulder BI min 2V PROTOCOL: Frontal, Grashey, scapular Y, and axillary views of the bilateral shoulders 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 Other XR shoulder BI min 2V COMPARISON: 02/26/2018 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 Other XR shoulder BI min 2V There has been bon y resorption of the lateral margin of the clavicle on the right suggesting 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 Other XR shoulder BI min 2V osteomyelitis is w hich may be degenerative or traumatic. Mild hypertrophy of the AC joint is noted. 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 Other XR shoulder BI min 2V The glenohumeral j oint is preserved on the right. There is subcortical sclerosis greater tuberosity 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 Other XR shoulder BI min 2V of the right suggesting underlying rotator cuff abnormalities. This is new when compared to the 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 Other XR shoulder BI min 2V prior exam. The visualized right hemithorax is grossly intact. 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 Other XR shoulder BI min 2V There is mild hypertrophy of the left acromioclavicular joint. There is mild subcortical sclerosis 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 Other XR shoulder BI min 2V of the greater tuberosity in the left suggesting underlying rotator cuff abnormalities. The 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 Other XR shoulder BI min 2V glenohumeral joint is preserved. There is no fracture or dislocation. Visualized left hemithorax is 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 Other XR shoulder BI min 2V grossly intact. 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 Other XR shoulder BI min 2V There is partial visualization of intervertebral disc arthroplasty is noted within the lower 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 Other XR shoulder BI min 2V cervical spine. Rudimentary ribs are noted at C7, right greater than left 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 Other XR shoulder BI min 2V XR/XR shoulder BI min 2V 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 Other XR shoulder BI min 2V Degenerative velasco es are noted in the bilateral shoulders with findings suspicious for bilateral 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 Other XR shoulder BI min 2V rotator cuff abnormalities as above. 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 Other XR shoulder BI min 2V Rudimentary ribs a re noted at C7, right greater than left 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 Other XR shoulder BI min 2V Impression dictate d by: Howie Garcia M.D.09/22/2022 2:20 PM 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 Other XR shoulder BI min 2V Transcribed By: KT Thorpe 09/22/22 [facility] 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 Other XR shoulder BI min 2V Dictated By: Howie Garcia II, MD 09/22/22 1411 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 Other XR shoulder BI min 2V 09/22/22 [facility] 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 Other SCREENING MAMMOGRAM W/RUSSEL, BILATERAL*on 09-14-2022 SCREENING [...] IS VERY IMPORTANT TO YOUR HEALTH. CURRENT [place] [employer] GUIDELINES RECOMMENDS ANNUAL MAMMOGRAPHY BEGINNING AT AGE 42. THIS FACILITY USUALLY USES A REMINDER SYSTEM TO ENSURE ALL POSITIONS RECEIVED REMINDER NOTIFICATIONS AT THE TIME BASED ON THE RECOMMENDATIONS OF THIS EXAM. Report reported and signed by Zaida Diaz on 09/16/2022 1334 Normal [facility] [employer] Associate Tobacco Screening.on 022 Adult depression screening assessment No 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 iMrian Velasco CBC AUTO DIFFon 04-17-2022 BASO # 0.1 103/ul Normal 0.0-0.1 [facility] Comment on above: Performed By: #### L ACT #### [facility] [address] [place] [address] Dr. Mirian Velasco Basophils/100 WBC (Bld) 1.0 % Normal 0.2-2.0 [facility] Comment on above: Performed By: #### L ACT #### [facility] [address] [place] [address] Dr. Mirian Velasco EO # 0.2 103/ul Normal 0.0-0.7 [facility] Comment on above: Performed By: #### L ACT #### [facility] [address] [place] [address] Dr. Mirian Velasco Eosinophils/100 WBC (Bld) 3.3 % Normal 0.9-7.0 [facility] Comment on above: Performed By: #### L ACT #### [facility] [address] [place] [address] Dr. Mirian Velasco Erythrocyte distribution width (RBC) [Ratio] 12.0 % Normal 11.0-15.0 [facility] Comment on above: Performed By: #### L ACT #### [facility] [address] [place] [address] Dr. Mirian Velasco Hematocrit (Bld) [Volume fraction] 37.3 % Normal 36.0-48.0 [facility] Comment on above: Performed By: #### L ACT #### [facility] [address] [place] [address] Dr. Mirian Velasco Hemoglobin (Bld) [Mass/Vol] 12.1 g/dL Normal 12.0-16.0 [facility] Comment on above: Performed By: #### L ACT #### [facility] [address] [place] [address] Dr. Mirian Velasco IG # 0.03 10e3/ul Normal 0.00-0.03 [facility] Comment on above: Performed By: #### L ACT #### [facility] [address] [place] [address] Dr. Mirian Velasco IG % 0.4 % Normal 0.0-0.5 [facility] Comment on above: Performed By: #### L ACT #### [facility] [address] [place] [address] Dr. Mirian Velasco LYMPH # 1.8 103/ul Normal 1.2-3.8 [facility] Comment on above: Performed By: #### L ACT #### [facility] [address] [place] [address] Dr. Mirian Velasco Lymphocytes/100 WBC (Bld) 25.2 % Normal 20.5-60.0 [facility] Comment on above: Performed By: #### L ACT #### [facility] [address] [place] [address] Dr. Mirian Velasco MANUAL DIFF REQ NO Normal [facility] Comment on above: Performed By: #### L ACT #### [facility] [address] [place] [address] Dr. Mirian Velasco MCH (RBC) [Entitic mass] 29.0 pg Normal 26.7-34.0 [facility] Comment on above: Performed By: #### L ACT #### [facility] [address] [place] [address] Dr. Mirian Velasco MCHC (RBC) [Mass/Vol] 32.4 g/dL Normal 29.9-35.2 [facility] Comment on above: Performed By: #### L ACT #### [facility] [address] [place] [address] Dr. Mirian Velasco MCV (RBC) [Entitic vol] 89.4 fL Normal 81.0-99.0 [facility] Comment on above: Performed By: #### L ACT #### [facility] [address] [address] [address] Mirian Velasco MONO # 0.4 103/ul Normal 0.3-0.8 [facility] Comment on above: Performed By: #### L ACT #### [facility] [address] [place] [address] Dr. Mirian Velasco Monocytes/100 WBC (Bld) 5.8 % Normal 1.7-12.0 [facility] Comment on above: Performed By: #### L ACT #### [facility] [address] [place] [address] Dr. Mirian Velasco NEUT # 4.6 103/ul Normal 1.4-6.5 [facility] Comment on above: Performed By: #### L ACT #### [facility] [address] [place] [address] Dr. Mirian Velasco Neutrophils/100 WBC (Bld) 64.3 % Normal 43.0-75.0 [facility] Comment on above: Performed By: #### L ACT #### [facility] [address] [place] [address] Dr. Mirian Velasco Platelet mean volume (Bld) [Entitic vol] 8.6 fL Critically low 9.5-13.5 [facility] Comment on above: Performed By: #### L ACT #### [facility] [address] [place], [place] [id number] Dr. Mirian Velasco PLT 597 103/ul Critically high 150-450 [facility] Comment on above: Performed By: #### L ACT #### [facility] [address] [id number] [address] Mirian Velasco RBC 4.17 106/ul Critically low 4.20-5.40 [facility] Comment on above: Performed By: #### L ACT #### [facility] [address] [place], [place] [address] Dr. Mirian Velasco WBC 7.2 103/ul Normal 4.0-11.0 [facility] Comment on above: Performed By: #### L ACT #### [facility] [address] [place], [place] [address] ABD/PELVIS WO CONon [...] by: MAKENNA TRIPLETT Date: 2022-04-17 11:19 Normal [facility] ER URINE PROFILEon 2 Bilirubin Ql (U) Negative Normal NEGATIVE [facility] Comment on above: Performed By: #### P T #### [facility] [address] [place] [address] Dr. Mirian Velasco Clarity (U) CLEAR Normal CLEAR [facility] Comment on above: Performed By: #### P T #### [facility] [address] [address] [address] Mirian Velasco Color (U) YELLOW Normal YELLOW [facility] Comment on above: Performed By: #### P T #### [facility] [address] [place] [address] Dr. Mirian KING A micrscopic examination will be performed if indicated. Normal [facility] Comment on above: Performed By: #### P T #### [facility] [address] [place] [address] Dr. Mirian Velasco Glucose Ql (U) Negative Normal NEGATIVE [facility] Comment on above: Performed By: #### P T #### [facility] [address] [place] [address] Dr. Mirian Velasco Hemoglobin Ql (U) Negative Normal NEGATIVE [facility] Comment on above: Performed By: #### P T #### [facility] [address] [place] [address] Dr. Mirian Velasco Ketones Ql (U) Negative Normal NEGATIVE [facility] Comment on above: Performed By: #### P T #### [facility] [address] [place] [address] Dr. Mirian Velasco LEUKOCYTES Negative Normal NEGATIVE [facility] Comment on above: Performed By: #### P T #### [facility] [address] [place] [address] Dr. Mirian Velasco Nitrite Ql (U) Negative Normal NEGATIVE [facility] Comment on above: Performed By: #### P T #### [facility] [address] [place] [address] Dr. Mirian Velasco pH (U) 5.5 [pH] Normal 5-9 [facility] Comment on above: Performed By: #### P T #### [facility] [address] [place] [address] Dr. Mirian Velasco SPEC GRAVITY >=1.030 Abnormal 1.005-<=1.025 [facility] Comment on above: Performed By: #### P T #### [facility] [address] [place] [address] Dr. Mirian Velasco UA PROTEIN Negative Normal NEGATIVE/ TRACE [facility] Comment on above: Performed By: #### P T #### [facility] [address] [place] [address] Dr. Mirian Velasco UR MICRO IND NOT INDICATED Normal [facility] Comment on above: Performed By: #### P T #### [facility] [address] [place] [address] Dr. Mirian Velasco Urobilinogen Qn (U) 0.2 {Lyubov'U}/dL Normal 0.2 - 1. 0 [facility] Comment on above: Performed By: #### P T #### [facility] [address] [place] [address] Dr. Mirian Velasco LIPASEon 04-17-2022 Lipase [Catalytic activity/Vol] 117.0 U/L Normal 73.0-393.0 [facility] Comment on above: Performed By: #### P T #### [facility] [address] [place] [address] Dr. Mirian Velasco PROF 14(COMP METB)on 022 Albumin [Mass/Vol] 3.5 g/dL Normal 3.4-5.0 [facility] Comment on above: Performed By: #### P T #### [facility] [address] [place] [address] Dr. Mirian Velasco Albumin/Globulin [Mass ratio] 0.9 {ratio} Normal [facility] Comment on above: Performed By: #### P T #### [facility] [address] [place] [address] Dr. Mirian Velasco ALP [Catalytic activity/Vol] 237 U/L Critically high 46-116 [facility] Comment on above: Performed By: #### P T #### [facility] [address] [address] [address] Mirian Velasco ALT [Catalytic activity/Vol] 53 U/L Normal 14-59 [facility] Comment on above: Performed By: #### P T #### [facility] [address] [address] [address] Mirian Velasco Anion gap [Moles/Vol] 11.0 mmol/L Normal [facility] Comment on above: Performed By: #### P T #### [facility] [address] [address] [address] Mirian Velasco AST [Catalytic activity/Vol] 45 U/L Critically high 15-37 [facility] Comment on above: Performed By: #### P T #### [facility] [address] [address] [address] Mirian Velasco Bilirubin [Mass/Vol] 0.2 mg/dL Normal 0.2-1.0 [facility] Comment on above: Performed By: #### P T #### [facility] [address] [address] [address] Mirian Velasco Calcium [Mass/Vol] 9.3 mg/dL Normal 8.5-10.1 [facility] Comment on above: Performed By: #### P T #### [facility] [address] [address] [address] Mirian Velasco Chloride [Moles/Vol] 105 mmol/L Normal 98-107 [facility] Comment on above: Performed By: #### P T #### [facility] [address] [address] [address] Mirian Velasco CO2 [Moles/Vol] 29.5 mmol/L Normal 21.0-32.0 [facility] Comment on above: Performed By: #### P T #### [facility] [address] [address] [address] Mirian Velasco Creatinine [Mass/Vol] 0.69 mg/dL Normal 0.55-1.02 [facility] Comment on above: Performed By: #### P T #### [facility] [address] [address] [address] Mirian Velasco EGFR-AF CAMEROONIAN >110 Normal >=60 [facility] Comment on above: Performed By: #### P T #### [facility] [address] [address] [address] Mirian Velasco EGFR-NON AF CAMEROONIAN >90 Normal >=60 [facility] Comment on above: Performed By: #### P T #### [facility] [address] [address] [address] Mirian Velasco Globulin (S) [Mass/Vol] 4.0 g/dL Normal [facility] Comment on above: Performed By: #### P T #### [facility] [address] [address] [address] Mirian Velasco Glucose [Mass/Vol] 107 mg/dL Critically high 74-106 [facility] Comment on above: Performed By: #### P T #### [facility] [address] [address] [address] Mirian Velasco Potassium [Moles/Vol] 4.5 mmol/L Normal 3.5-5.1 [facility] Comment on above: Performed By: #### P T #### [facility] [address] [address] [address] Mirian Velasco Protein [Mass/Vol] 7.5 g/dL Normal 6.4-8.[address] [facility] Comment on above: Performed By: #### P T #### [facility] [address] [address] [address] Mirian Velasco Sodium [Moles/Vol] 141 mmol/L Normal 136-[address] [facility] Comment on above: Performed By: #### P T #### [facility] [address] [address] [address] Mirian Vealsco Urea nitrogen [Mass/Vol] 11.0 mg/dL Normal 7.0-18.0 [facility] Comment on above: Performed By: #### P T #### [facility] [address] [address] [address] Mirian Velasco Urea nitrogen/Creatinine [Mass ratio] 15.9 mg/mg Normal [facility] Comment on above: Performed By: #### P T #### [facility] [address] [address] [address] Mirian Velasco XR CHEST 1 Von 04-17-2022 XR CHEST 1 V EXAM: Chest x-ray HISTORY: Pain. COMPARISON: 02/20/2022 TECHNIQUE: AP portable upright view of the chest. FINDINGS: Heart and Vascularity are unremarkable. Lungs are free of focal infiltrates. No effusions are noted. Impression: No acute heart or lung disease identified. Electronically authenticated by: NICKI BUTT Date: 2022-04-17 11:03 Normal [facility] Basic metabolic 2000 panelon 04-05-2022 Anion gap [Moles/Vol] 13 mmol/L Normal 9-18 [facility] Comment on above: Order Comment: Leanne terry Type: BLOOD SPECIMEN Ordering Facility: [facility] Address: [address] [place] [address] Performed By: #### 5 8410-2 #### [facility] CLIA [id number] [address] [place] [address] [place] Calcium [Mass/Vol] 9.0 mg/dL Normal 8.5-10.2 [facility] Comment on above: Order Comment: Leanne terry Type: BLOOD SPECIMEN Ordering Facility: [facility] Address: [address] [place] [address] Performed By: #### 5 8410-2 #### [facility] CLIA [id number] [address] [place] [address] [place] Chloride [Moles/Vol] 104 mmol/L Normal 97-105 [facility] Comment on above: Order Comment: Leanne terry Type: BLOOD SPECIMEN Ordering Facility: [facility] Address: [address] [place] [address] Performed By: #### 5 8410-2 #### [facility] CLIA [id number] [address] [place] [address] [place] CO2 [Moles/Vol] 25 mmol/L Normal 22-30 [facility] Comment on above: Order Comment: Leanne harrison Type: BLOOD SPECIMEN Ordering Facility: [facility] Address: [address] [place] [address] Performed By: #### 5 8410-2 #### [facility] CLIA [id number] [place] [address] [place] [facility] Creatinine [Mass/Vol] 0.65 mg/dL Normal 0.58-0.96 [facility] Comment on above: Order Comment: Leanne harrison Type: BLOOD SPECIMEN Ordering Facility: [facility] Address: [address] [place] [address] Performed By: #### 5 8410-2 #### [facility] CLIA [id number] [address] [place] [address] [place] ESTIMATED GLOMERULAR FILTRATION RATE 108 mL/min/1.73m??? Normal >=60 [facility] Comment on above: Order Comment: Leanne harrison Type: BLOOD SPECIMEN Ordering Facility: [facility] Address: [address] [place] [address] Result Comment: Mary mated Glomerular Filtration Rate [...] GFR. Performed By: #### 5 8410-2 #### [facility] CLIA [id number] [address] [place] [address] [place] Glucose [Mass/Vol] 109 mg/dL High 74-99 [facility] Comment on above: Order Comment: Leanne terry Type: BLOOD SPECIMEN Ordering Facility: [facility] Address: [address] [place] [address] Result Comment: The [place] [employer] (ADA) provides guidance for cutoff [...] Standards of Medical Care in Diabetes 2016, [place] [employer]. Diabetes Care. 2016.39(Suppl 1). Performed By: #### 5 8410-2 #### [facility] CLIA [id number] [address] [place] [address] [place] Potassium [Moles/Vol] 3.9 mmol/L Normal 3.7-5.1 [facility] Comment on above: Order Comment: Speci men Type: BLOOD SPECIMEN Ordering Facility: [facility] Address: [address] [place] [address] Performed By: #### 5 8410-2 #### [facility] CLIA [id number] [address] [place] [address] [place] Sodium [Moles/Vol] 142 mmol/L Normal 136-144 [facility] Comment on above: Order Comment: Speci harrison Type: BLOOD SPECIMEN Ordering Facility: [facility] Address: [address] [place] [address] Performed By: #### 5 8410-2 #### [facility] CLIA [id number] [address] [place] [address] [place] Urea nitrogen [Mass/Vol] 7 mg/dL Normal 7-21 [facility] Comment on above: Order Comment: Speci men Type: BLOOD SPECIMEN Ordering Facility: [facility] Address: [address] [place] [address] Performed By: #### 5 8410-2 #### [facility] CLIA [id number] [address] [place] [address] [place] CBC W Auto Differential pane l (Bld)on 04-05-2022 Basophils (Bld) [#/Vol] 0.05 10*3/uL Normal <0.11 [facility] Comment on above: Order Comment: Speci men Type: BLOOD SPECIMENOrdering Facility: [facility] Address: [address] [place] [address] Performed By: #### B MP #### [address] [phone] Basophils/100 WBC (Bld) 0.7 % Normal [facility] Comment on above: Order Comment: Speci men Type: BLOOD SPECIMENOrdering Facility: [facility] Address: [address] [place] [address] Performed By: #### B MP #### [address] [place] [phone] Differential cell count method Nom (Bld) Auto Normal [facility] Comment on above: Order Comment: Speci men Type: BLOOD SPECIMENOrdering Facility: [facility] Address: [address] [place] [address] Performed By: #### B MP #### [address] [place] [phone] Eosinophils (Bld) [#/Vol] 0.55 10*3/uL High <0.46 [facility] Comment on above: Order Comment: Speci men Type: BLOOD SPECIMENOrdering Facility: [facility] Address: [address] [place] [address] Performed By: #### B MP #### [address] [place] [phone] Eosinophils/100 WBC (Bld) 8.2 % Normal [facility] Comment on above: Order Comment: Speci men Type: BLOOD SPECIMENOrdering Facility: [facility] Address: [address] [place] [address] Performed By: #### B MP #### [address] [place] [phone] Erythrocyte distribution width (RBC) [Ratio] 12.8 % Normal 11.5-15.0 [facility] Comment on above: Order Comment: Speci men Type: BLOOD SPECIMENOrdering Facility: [facility] Address: [address] [place] [address] Performed By: #### B MP #### [place] [phone] Hematocrit (Bld) [Volume fraction] 31.1 % Low 36.0-46.0 [facility] Comment on above: Order Comment: Speci men Type: BLOOD SPECIMENOrdering Facility: [facility] Address: [address] [place] [address] Performed By: #### B MP #### [address] [place] [phone] Hemoglobin (Bld) [Mass/Vol] 10.5 g/dL Low 11.5-15.5 [facility] Comment on above: Order Comment: Speci men Type: BLOOD SPECIMENOrdering Facility: [facility] Address: [address] [place] [address] Performed By: #### B MP #### [place] [phone] IMMATURE GRAN % 0.4 % Normal [facility] Comment on above: Order Comment: Speci men Type: BLOOD SPECIMENOrdering Facility: [facility] Address: [address] [place] [address] Performed By: #### B MP #### [place] [address] IMMATURE GRAN ABS 0.03 k/uL Normal <0.10 [facility] Comment on above: Order Comment: Speci men Type: BLOOD SPECIMENOrdering Facility: [facility] Address: [address] [place] [address] Performed By: #### B MP #### [address] Lymphocytes (Bld) [#/Vol] 1.47 10*3/uL Normal 1.00-4.00 [facility] Comment on above: Order Comment: Speci men Type: BLOOD SPECIMENOrdering Facility: [facility] Address: [address] [place] [address] Performed By: #### B MP #### [place] [phone] Lymphocytes/100 WBC (Bld) 22.0 % Normal [facility] Comment on above: Order Comment: Speci men Type: BLOOD SPECIMENOrdering Facility: [facility] Address: [address] [place], [place] [id number] Performed By: #### B MP #### [address] [phone] MCH (RBC) [Entitic mass] 29.9 pg Normal 26.0-34.0 [facility] Comment on above: Order Comment: Speci men Type: BLOOD SPECIMENOrdering Facility: [facility] Address: [address] [place] [address] Performed By: #### B MP #### [address] [phone] MCHC (RBC) [Mass/Vol] 33.8 g/dL Normal 30.5-36.0 [facility] Comment on above: Order Comment: Speci men Type: BLOOD SPECIMENOrdering Facility: [facility] Address: [address] [place] [address] Performed By: #### B MP #### [phone] MCV (RBC) [Entitic vol] 88.6 fL Normal 80.0-100.0 [facility] Comment on above: Order Comment: Speci men Type: BLOOD SPECIMENOrdering Facility: [facility] Address: [address] [place] [address] Performed By: #### B MP #### [phone] Monocytes (Bld) [#/Vol] 0.50 10*3/uL Normal <0.87 [facility] Comment on above: Order Comment: Speci men Type: BLOOD SPECIMENOrdering Facility: [facility] Address: [address] [place] [address] Performed By: #### B MP #### [phone] Monocytes/100 WBC (Bld) 7.5 % Normal [facility] Comment on above: Order Comment: Speci men Type: BLOOD SPECIMENOrdering Facility: [facility] Address: [address] [place] [address] Performed By: #### B MP #### [address] [place] [phone] Neutrophils (Bld) [#/Vol] 4.08 10*3/uL Normal 1.45-7.50 [facility] Comment on above: Order Comment: Speci men Type: BLOOD SPECIMENOrdering Facility: [facility] Address: [address] [place] [address] Performed By: #### B MP #### [place] [phone] Neutrophils/100 WBC (Bld) 61.2 % Normal [facility] Comment on above: Order Comment: Speci men Type: BLOOD SPECIMENOrdering Facility: [facility] Address: [address] [place] [address] Performed By: #### B MP #### [place] [phone] Nucleated RBC (Bld) [#/Vol] 10*3/uL Normal <0.01 [facility] Comment on above: Order Comment: Speci men Type: BLOOD SPECIMENOrdering Facility: [facility] Address: [address] [place] [address] Performed By: #### B MP #### [place] [phone] Nucleated RBC/100 WBC (Bld) [Ratio] 0.0 /100 WBC Normal [facility] Comment on above: Order Comment: Speci men Type: BLOOD SPECIMENOrdering Facility: [facility] Address: [address] [place] [address] Performed By: #### B MP #### [phone] Platelet mean volume (Bld) [Entitic vol] 8.9 fL Low 9.0-12.7 [facility] Comment on above: Order Comment: Speci men Type: BLOOD SPECIMENOrdering Facility: [facility] Address: [address] [place] [address] Performed By: #### B MP #### [place] [address] Platelets (Bld) [#/Vol] 455 10*3/uL High 150-400 [facility] Comment on above: Order Comment: Speci men Type: BLOOD SPECIMENOrdering Facility: [facility] Address: [address] [place] [address] Performed By: #### B MP #### [place] [address] RBC (Bld) [#/Vol] 3.51 10*6/uL Low 3.90-5.20 [facility] Comment on above: Order Comment: Speci men Type: BLOOD SPECIMENOrdering Facility: [facility] Address: [address] [place] [address] Performed By: #### B MP #### [place] [address] WBC (Bld) [#/Vol] 6.68 10*3/uL Normal 3.70-11.00 [facility] Comment on above: Order Comment: Speci men Type: BLOOD SPECIMENOrdering Facility: [facility] Address: [address] [place] [address] Performed By: #### B MP #### [place] [address] CNDSon 04-05-2022 DS HNO ID: [id number] Author: Jessi Sheets APRN.CHEMISTRY DEPARTMENT CHAIR Service: Colorectal Author Type: Nurse Practitioner Type: [...] of the summary. CONSULTING TEAMS DURING HOSPITALIZATION: [facility] Treatment Team: Attending Provider: Mary Obrien [...] only. Pain controlled with TAPs and a QUALITY ASSURANCE ASSOCIATE. Remained nauseated. POD4 re-advanced to full liquids [...] by mo (more content not included)... Normal [facility] Magnesium SerPl-mCncon 04-05 Magnesium [Mass/Vol] 2.0 mg/dL Normal 1.7-2.3 [facility] Comment on above: Order Comment: Speci men Type: BLOOD SPECIMEN [facility] Address: [address] [place] [address] Performed By: #### 5 8410-2 #### [facility] CLIA [id number] NURSING PROGon 04-05-2022 NURSING PROG HNO ID: [id number] Author: Liliana Mayer RN Service: ? 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 This note was completed by: Liliana Mayer [facility] NURSING PROG HNO ID: [id number] Author: Liliana Mayer RN Service: ? 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 Has three lap sites,open to air and glued.Showered this morning.Up in chair,ambulates in room without any difficulties.Denies pain. This note was completed by: Liliana Mayer [facility] NURSING PROG HNO ID: [id number] Author: Tez Gu RN Service: ? Author Type: Registered Nurse Type: Nursing Progress Note Filed: 04/04/2022 10:58 PM Note Text: Nursing Progress Note Patient Name: Mary Leal Patient Location: [address]/JC2G-56 __ Daily Note:04/04/22 2140 Pt is alert and oriented x3. Pt mabulating independently. Surgical sites intact. Pt refusing IVF, pt states she drinks enough water. This note was completed by: Tez Gu [facility] NUTRITIONon 04-05-2022 NUTRITION HNO ID: [id number] Author: Merced Morales DTR Service: Nutrition Therapy Author Type: Green Hide Inspector Type: Nutrition Filed: 04/05/2022 10:42 AM Note Text: NUTRITION THERAPY COMPUTER SALESPERSON RETAIL NOTE SERVICE DATE: 04/05/2022 SERVICE TIME: 9:45 [...] April 05, 2022 TIME: 9:54 AM Normal [facility] Phosphate SerPl-mCncon 04-05 Phosphate [Mass/Vol] 4.6 mg/dL Normal 2.7-4.8 [facility] Comment on above: Order Comment: Speci men Type: BLOOD SPECIMEN [facility] Address: [address] [place] [address] Performed By: #### 5 8410-2 #### [facility] CLIA [id number] [address] [place] [address] [place] Basic metabolic 2000 panelon 04-04-2022 Anion gap [Moles/Vol] 10 mmol/L Normal 9-18 [facility] Comment on above: Order Comment: Speci men Type: BLOOD SPECIMENOrdering Facility: [facility] Address: [address] [place] [address] Performed By: #### 2 4321-2, 43482-9, 2777-1 ####[facility] [id number] [place] [address] [place] Calcium [Mass/Vol] 8.9 mg/dL Normal 8.5-10.2 [facility] Comment on above: Order Comment: Speci men Type: BLOOD SPECIMENOrdering Facility: [facility] Address: [address] Performed By: #### 2 4321-2, , 2776-11 ####[facility] [id number] [place] [id number] [place] Chloride [Moles/Vol] 104 mmol/L Normal 97-105 [facility] Comment on above: Order Comment: Speci men Type: BLOOD SPECIMENOrdering Facility: [facility] Address: [address] [place], [place] [address] Performed By: #### 2 4321-2, , 2776-11 ####[facility] LABORATORYCLIA [id number] [place] [address] [place] CO2 [Moles/Vol] 26 mmol/L Normal 22-30 [facility] Comment on above: Order Comment: Speci men Type: BLOOD SPECIMENOrdering Facility: [facility] Address: [address] [place], [place] [address] Performed By: #### 2 4321-2, , 2776-11 ####[facility] LABORATORYCLIA [id number] [place] [address] [place] Creatinine [Mass/Vol] 0.56 mg/dL Low 0.58-0.96 [facility] Comment on above: Order Comment: Speci men Type: BLOOD SPECIMENOrdering Facility: [facility] Address: [address] Performed By: #### 2 4321-2, , 2776-11 ####[facility] LABORATORYCLIA [id number] [place] [id number] [place] ESTIMATED GLOMERULAR FILTRATION RATE 112 mL/min/1.73m??? Normal >=60 [facility] Comment on above: Order Comment: Speci men Type: BLOOD SPECIMENOrdering Facility: [facility] Address: [address] [place], [place] [address] Result Comment: Mary mated Glomerular Filtration Rate [...] Performed By: #### 2 4321-2, , 2776-11 ####[facility] LABORATORYCLIA [id number] [place] [id number] [place] Glucose [Mass/Vol] 112 mg/dL High 74-99 [facility] Comment on above: Order Comment: Leanne terry Type: BLOOD SPECIMENOrdering Facility: [facility] Address: [address] [place], [place] [address] Result Comment: The [place] Diabetes Association (ADA) provides guidance for cutoff [...] Standards of Medical Care in Diabetes 2016, [place] [employer]. Diabetes Care. 2016.39(Suppl 1). Performed By: #### 2 4321-2, , 2776-11 ####[facility] [id number] [place] [id number] [place] Potassium [Moles/Vol] 3.9 mmol/L Normal 3.7-5.1 [facility] Comment on above: Order Comment: Leanne terry Type: BLOOD SPECIMENOrdering Facility: [facility] Address: [address] [place] [id number] Performed By: #### 2 4321-2, , 2776-11 ####[facility] [id number] [place] [address] [place] Sodium [Moles/Vol] 140 mmol/L Normal 136-144 [facility] Comment on above: Order Comment: Speci men Type: BLOOD SPECIMENOrdering Facility: [facility] Address: [address] [place] [address] Performed By: #### 2 4321-2, 40488-6, 2777-1 ####[facility] [id number] [place] [address] [place] Urea nitrogen [Mass/Vol] 3 mg/dL Low 7-21 [facility] Comment on above: Order Comment: Speci men Type: BLOOD SPECIMENOrdering Facility: [facility] Address: [address] [place] [address] Performed By: #### 2 4321-2, 29779-0, 2777-1 ####[facility] [id number] [place] [address] [place] CBC W Auto Differential pane l (Bld)on 04-04-2022 Basophils (Bld) [#/Vol] 0.03 10*3/uL Normal <0.11 [facility] Comment on above: Order Comment: Speci men Type: BLOOD SPECIMEN [facility] Address: [address] [place] [address] Performed By: #### 5 7021-8 #### [facility] CLIA [id number] [place] [address] [place] Basophils/100 WBC (Bld) 0.5 % Normal [facility] Comment on above: Order Comment: Speci men Type: BLOOD SPECIMEN [facility] Address: [address] [place] [address] Performed By: #### 5 7021-8 #### [facility] CLIA [id number] [address] [place] [address] [place] Differential cell count method Nom (Bld) Auto Normal [facility] Comment on above: Order Comment: Speci men Type: BLOOD SPECIMEN [facility] Address: [address] [place] [address] Performed By: #### 5 7021-8 #### [facility] CLIA [id number] [address] [place] [address] [place] Eosinophils (Bld) [#/Vol] 0.48 10*3/uL High <0.46 [facility] Comment on above: Order Comment: Speci men Type: BLOOD SPECIMEN [facility] Address: [address] [place] [address] Performed By: #### 5 7021-8 #### [facility] CLIA [id number] [address] [place] [address] [place] Eosinophils/100 WBC (Bld) 7.7 % Normal [facility] Comment on above: Order Comment: Speci men Type: BLOOD SPECIMEN [facility] Address: [address] [place] [address] Performed By: #### 5 7021-8 #### [facility] CLIA [id number] [address] [place] [address] [place] Erythrocyte distribution width (RBC) [Ratio] 12.7 % Normal 11.5-15.0 [facility] Comment on above: Order Comment: Speci men Type: BLOOD SPECIMEN [facility] Address: [address] [place] [address] Performed By: #### 5 7021-8 #### [facility] CLIA [id number] [address] [place] [address] [place] Hematocrit (Bld) [Volume fraction] 31.2 % Low 36.0-46.0 [facility] Comment on above: Order Comment: Speci men Type: BLOOD SPECIMEN [facility] Address: [address] [place] [address] Performed By: #### 5 7021-8 #### [facility] CLIA [id number] [address] [place] [address] [place] Hemoglobin (Bld) [Mass/Vol] 10.7 g/dL Low 11.5-15.5 [facility] Comment on above: Order Comment: Speci men Type: BLOOD SPECIMEN [facility] Address: [address] [place] [address] Performed By: #### 5 7021-8 #### [facility] CLIA [id number] [address] [place] [address] [place] IMMATURE GRAN % 0.5 % Normal [facility] Comment on above: Order Comment: Speci men Type: BLOOD SPECIMEN [facility] Address: [address] [place] [address] Performed By: #### 5 7021-8 #### [facility] CLIA [id number] [address] [place] [address] [place] IMMATURE GRAN ABS 0.03 k/uL Normal <0.10 [facility] Comment on above: Order Comment: Speci men Type: BLOOD SPECIMEN [facility] Address: [address] [place] [address] Performed By: #### 5 7021-8 #### [facility] CLIA [id number] [address] [place] [address] [place] Lymphocytes (Bld) [#/Vol] 1.13 10*3/uL Normal 1.00-4.00 [facility] Comment on above: Order Comment: Speci men Type: BLOOD SPECIMEN [facility] Address: [address] [place] [address] Performed By: #### 5 7021-8 #### [facility] CLIA [id number] [address] [place] [address] [place] Lymphocytes/100 WBC (Bld) 18.2 % Normal [facility] Comment on above: Order Comment: Speci men Type: BLOOD SPECIMEN [facility] Address: [address] [place] [address] Performed By: #### 5 7021-8 #### [facility] CLIA [id number] [address] [place] [address] [place] MCH (RBC) [Entitic mass] 29.9 pg Normal 26.0-34.0 [facility] Comment on above: Order Comment: Speci men Type: BLOOD SPECIMEN [facility] Address: [address] [place] [address] Performed By: #### 5 7021-8 #### [facility] CLIA [id number] [address] [place] [address] [place] MCHC (RBC) [Mass/Vol] 34.3 g/dL Normal 30.5-36.0 [facility] Comment on above: Order Comment: Speci men Type: BLOOD SPECIMEN [facility] Address: [address] [place] [address] Performed By: #### 5 7021-8 #### [facility] CLIA [id number] [address] [place] [address] [place] MCV (RBC) [Entitic vol] 87.2 fL Normal 80.0-100.0 [facility] Comment on above: Order Comment: Speci men Type: BLOOD SPECIMEN [facility] Address: [address] [place] [address] Performed By: #### 5 7021-8 #### [facility] CLIA [id number] [address] [place] [address] [place] Monocytes (Bld) [#/Vol] 0.36 10*3/uL Normal <0.87 [facility] Comment on above: Order Comment: Speci men Type: BLOOD SPECIMEN [facility] Address: [address] [place] [address] Performed By: #### 5 7021-8 #### [facility] CLIA [id number] [address] [place] [address] [place] Monocytes/100 WBC (Bld) 5.8 % Normal [facility] Comment on above: Order Comment: Speci men Type: BLOOD SPECIMEN [facility] Address: [address] [place] [address] Performed By: #### 5 7021-8 #### [facility] CLIA [id number] [address] [place] [address] [place] Neutrophils (Bld) [#/Vol] 4.18 10*3/uL Normal 1.45-7.50 [facility] Comment on above: Order Comment: Speci men Type: BLOOD SPECIMEN [facility] Address: [address] [place] [address] Performed By: #### 5 7021-8 #### [facility] CLIA [id number] [address] [place] [address] [place] Neutrophils/100 WBC (Bld) 67.3 % Normal [facility] Comment on above: Order Comment: Speci men Type: BLOOD SPECIMEN [facility] Address: [address] [place] [address] Performed By: #### 5 7021-8 #### [facility] CLIA [id number] [address] [place] [address] [place] Nucleated RBC (Bld) [#/Vol] 10*3/uL Normal <0.01 [facility] Comment on above: Order Comment: Speci men Type: BLOOD SPECIMEN [facility] Address: [address] [place] [address] Performed By: #### 5 7021-8 #### [facility] CLIA [id number] [address] [place] [address] [place] Nucleated RBC/100 WBC (Bld) [Ratio] 0.0 /100 WBC Normal [facility] Comment on above: Order Comment: Speci men Type: BLOOD SPECIMEN [facility] Address: [address] [place] [address] Performed By: #### 5 7021-8 #### [facility] CLIA [id number] [address] [place] [address] [place] Platelet mean volume (Bld) [Entitic vol] 8.7 fL Low 9.0-12.7 [facility] Comment on above: Order Comment: Speci men Type: BLOOD SPECIMEN [facility] Address: [address] [place] [address] Performed By: #### 5 7021-8 #### [facility] CLIA [id number] [address] [place] [address] [place] Platelets (Bld) [#/Vol] 436 10*3/uL High 150-400 [facility] Comment on above: Order Comment: Speci men Type: BLOOD SPECIMEN [facility] Address: [address] [place] [address] Performed By: #### 5 7021-8 #### [facility] CLIA [id number] [address] [place] [address] [place] RBC (Bld) [#/Vol] 3.58 10*6/uL Low 3.90-5.20 [facility] Comment on above: Order Comment: Speci men Type: BLOOD SPECIMEN [facility] Address: [address] [place] [address] Performed By: #### 5 7021-8 #### [facility] CLIA [id number] [address] [place] [address] [place] WBC (Bld) [#/Vol] 6.21 10*3/uL Normal 3.70-11.00 [facility] Comment on above: Order Comment: Speci men Type: BLOOD SPECIMEN [facility] Address: [address] [place] [address] Performed By: #### 5 7021-8 #### [facility] CLIA [id number] [address] [place] [address] [place] Magnesium SerPl-mCncon 04-04 Magnesium [Mass/Vol] 2.1 mg/dL Normal 1.7-2.3 [facility] Comment on above: Order Comment: Speci men Type: BLOOD SPECIMENOrdering Facility: [facility] Address: [address] [place] [address] Performed By: #### 2 4321-2, 45464-2, 2777-1 ####[facility]ORATORYCLIA [id number] [place] [address] [place] NURSING PROGon 04-04-2022 NURSING PROG HNO ID: [id number] Author: Dipti Crowley RN Service: Nursing Author Type: Registered Nurse Type: Nursing Progress Note Filed: 04/04/2022 7:47 PM Note Text: Nursing Progress Note Patient Name: Mary Leal Patient Location: / __ Daily Note:Patient refusing further IVF. This note was completed by: [facility] NURSING PROG HNO ID: [id number] Author: Dipti Crowley RN Service: Nursing Author Type: Registered Nurse Type: Nursing Progress Note Filed: 04/04/2022 11:11 AM Note Text: Nursing Progress Note Patient Name: Mary Leal Patient Location: / __ Daily Note: Patient up in chair [...] notified, but post call. 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 Will continue to monitor. Call light in reach. This note was completed by: [facility] Phosphate SerPl-mCncon 04-04 Phosphate [Mass/Vol] 3.2 mg/dL Normal 2.7-4.8 [facility] Comment on above: Order Comment: Speci men Type: BLOOD SPECIMENOrdering Facility: [facility] Address: [address] [place] [address] Performed By: #### 2 4321-2, 57804-6, 2777-1 ####[facility] LABORATORYCLIA [id number] [address] OF [facility] ALLIED HEALTHon 04-03-2022 ALLIED HEALTH HNO ID: [id number] Author: MALAIKA Martinez Service: ? Author Type: Mortgage Lender Type: Allied Health Filed: 04/03/2022 5:35 PM [...] Martinez April 03, 2022 5:35 PM Normal [facility] Basic metabolic 2000 panelon 04-03-2022 Anion gap [Moles/Vol] 10 mmol/L Normal 9-18 [facility] Comment on above: Order Comment: Leanne terry Type: BLOOD SPECIMENOrdering Facility: [facility] Address: [address] [place], [place] [id number] Performed By: #### B #### [facility] [address] [place] [address] Calcium [Mass/Vol] 8.4 mg/dL Low 8.5-10.2 [facility] Comment on above: Order Comment: Leanne terry Type: BLOOD SPECIMENOrdering Facility: [facility] Address: [address] [place], [place] [address] Performed By: #### B MP #### [place] [id number] Chloride [Moles/Vol] 103 mmol/L Normal 97-105 [facility] Comment on above: Order Comment: Speci men Type: BLOOD SPECIMENOrdering Facility: [facility] Address: [address] [place] [address] Performed By: #### B MP #### [phone] CO2 [Moles/Vol] 25 mmol/L Normal 22-30 [facility] Comment on above: Order Comment: Speci men Type: BLOOD SPECIMENOrdering Facility: [facility] Address: [address] [place] [address] Performed By: #### B MP #### [phone] Creatinine [Mass/Vol] 0.60 mg/dL Normal 0.58-0.96 [facility] Comment on above: Order Comment: Speci men Type: BLOOD SPECIMENOrdering Facility: [facility] Address: [address] [place] [address] Performed By: #### B MP #### [place] [phone] ESTIMATED GLOMERULAR FILTRATION RATE 110 mL/min/1.73m??? Normal >=60 [facility] Comment on above: Order Comment: Speci men Type: BLOOD SPECIMENOrdering Facility: [facility] Address: [address] [place] [address] Result Comment: Mary mated Glomerular Filtration Rate [...] GFR. Performed By: #### B MP #### [phone] Glucose [Mass/Vol] 106 mg/dL High 74-99 [facility] Comment on above: Order Comment: Speci men Type: BLOOD SPECIMENOrdering Facility: [facility] Address: [address] [place] [address] Result Comment: The [place] Diabetes Association (ADA) provides guidance for cutoff [...] Standards of Medical Care in Diabetes 2016, [place] [employer]. Diabetes Care. 2016.39(Suppl 1). Performed By: #### B MP #### [place] [id number] Potassium [Moles/Vol] 3.3 mmol/L Low 3.7-5.1 [facility] Comment on above: Order Comment: Leanne harrison Type: BLOOD SPECIMENOrdering Facility: [facility] Address: [address] [place] [address] Performed By: #### B MP #### [place] [phone] Sodium [Moles/Vol] 138 mmol/L Normal 136-144 [facility] Comment on above: Order Comment: Speci men Type: BLOOD SPECIMENOrdering Facility: [facility] Address: [address] [place] [address] Performed By: #### B MP #### [place] [phone] Urea nitrogen [Mass/Vol] 4 mg/dL Low 7-21 [facility] Comment on above: Order Comment: Speci men Type: BLOOD SPECIMENOrdering Facility: [facility] Address: [address] [place] [address] Performed By: #### B MP #### [place] [phone] CBC W Auto Differential pane l (Bld)on 04-03-2022 Basophils (Bld) [#/Vol] 0.03 10*3/uL Normal <0.11 [facility] Comment on above: Order Comment: Speci men Type: BLOOD SPECIMENOrdering Facility: [facility] Address: [address] [place] [address] Performed By: #### B MP #### [phone] Basophils/100 WBC (Bld) 0.4 % Normal [facility] Comment on above: Order Comment: Speci men Type: BLOOD SPECIMENOrdering Facility: [facility] Address: [address] [place] [address] Performed By: #### B MP #### [phone] Differential cell count method Nom (Bld) Auto Normal [facility] Comment on above: Order Comment: Speci men Type: BLOOD SPECIMENOrdering Facility: [facility] Address: [address] [place] [address] Performed By: #### B MP #### [phone] Eosinophils (Bld) [#/Vol] 0.48 10*3/uL High <0.46 [facility] Comment on above: Order Comment: Speci men Type: BLOOD SPECIMENOrdering Facility: [facility] Address: [address] [place] [address] Performed By: #### B MP #### [place] [phone] Eosinophils/100 WBC (Bld) 6.5 % Normal [facility] Comment on above: Order Comment: Speci men Type: BLOOD SPECIMENOrdering Facility: [facility] Address: [address] [place] [address] Performed By: #### B MP #### [place] [phone] Erythrocyte distribution width (RBC) [Ratio] 12.5 % Normal 11.5-15.0 [facility] Comment on above: Order Comment: Speci men Type: BLOOD SPECIMENOrdering Facility: [facility] Address: [address] [place] [address] Performed By: #### B MP #### [place] [phone] Hematocrit (Bld) [Volume fraction] 29.5 % Low 36.0-46.0 [facility] Comment on above: Order Comment: Speci men Type: BLOOD SPECIMENOrdering Facility: [facility] Address: [address] [place], [place] [address] Performed By: #### B MP #### [place] [phone] Hemoglobin (Bld) [Mass/Vol] 10.2 g/dL Low 11.5-15.5 [facility] Comment on above: Order Comment: Speci men Type: BLOOD SPECIMENOrdering Facility: [facility] Address: [address] [place] [address] Performed By: #### B MP #### [place] [phone] IMMATURE GRAN % 0.5 % Normal [facility] Comment on above: Order Comment: Speci men Type: BLOOD SPECIMENOrdering Facility: [facility] Address: [address] [place] [address] Performed By: #### B MP #### [place] [phone] IMMATURE GRAN ABS 0.04 k/uL Normal <0.10 [facility] Comment on above: Order Comment: Speci men Type: BLOOD SPECIMENOrdering Facility: [facility] Address: [address] [place] [address] Performed By: #### B MP #### [place] [phone] Lymphocytes (Bld) [#/Vol] 1.11 10*3/uL Normal 1.00-4.00 [facility] Comment on above: Order Comment: Speci men Type: BLOOD SPECIMENOrdering Facility: [facility] Address: [address] [place] [address] Performed By: #### B MP #### [place] [address] Lymphocytes/100 WBC (Bld) 15.0 % Normal [facility] Comment on above: Order Comment: Speci men Type: BLOOD SPECIMENOrdering Facility: [facility] Address: [address] [place] [address] Performed By: #### B MP #### [place] [phone] MCH (RBC) [Entitic mass] 30.1 pg Normal 26.0-34.0 [facility] Comment on above: Order Comment: Speci men Type: BLOOD SPECIMENOrdering Facility: [facility] Address: [address] [place] [address] Performed By: #### B MP #### [place] [phone] MCHC (RBC) [Mass/Vol] 34.6 g/dL Normal 30.5-36.0 [facility] Comment on above: Order Comment: Speci men Type: BLOOD SPECIMENOrdering Facility: [facility] Address: [address] [place] [address] Performed By: #### B MP #### [place] [phone] MCV (RBC) [Entitic vol] 87.0 fL Normal 80.0-100.0 [facility] Comment on above: Order Comment: Speci men Type: BLOOD SPECIMENOrdering Facility: [facility] Address: [address] [place] [address] Performed By: #### B MP #### [place] [phone] Monocytes (Bld) [#/Vol] 0.46 10*3/uL Normal <0.87 [facility] Comment on above: Order Comment: Speci men Type: BLOOD SPECIMENOrdering Facility: [facility] Address: [address] [place] [address] Performed By: #### B MP #### [place] [address] Monocytes/100 WBC (Bld) 6.2 % Normal [facility] Comment on above: Order Comment: Speci men Type: BLOOD SPECIMENOrdering Facility: [facility] Address: [address] [place] [address] Performed By: #### B MP #### [place] [address] Neutrophils (Bld) [#/Vol] 5.27 10*3/uL Normal 1.45-7.50 [facility] Comment on above: Order Comment: Speci men Type: BLOOD SPECIMENOrdering Facility: [facility] Address: [address] [place] [address] Performed By: #### B MP #### [place] [address] Neutrophils/100 WBC (Bld) 71.4 % Normal [facility] Comment on above: Order Comment: Speci men Type: BLOOD SPECIMENOrdering Facility: [facility] Address: [address] [place] [address] Performed By: #### B MP #### [phone] Nucleated RBC (Bld) [#/Vol] 10*3/uL Normal <0.01 [facility] Comment on above: Order Comment: Speci men Type: BLOOD SPECIMENOrdering Facility: [facility] Address: [address] [place] [address] Performed By: #### B MP #### [place] [phone] Nucleated RBC/100 WBC (Bld) [Ratio] 0.0 /100 WBC Normal [facility] Comment on above: Order Comment: Speci men Type: BLOOD SPECIMENOrdering Facility: [facility] Address: [address] [place] [address] Performed By: #### B MP #### [place] [phone] Platelet mean volume (Bld) [Entitic vol] 8.6 fL Low 9.0-12.7 [facility] Comment on above: Order Comment: Speci men Type: BLOOD SPECIMENOrdering Facility: [facility] Address: [address] [place] [address] Performed By: #### B MP #### [place] [phone] Platelets (Bld) [#/Vol] 342 10*3/uL Normal 150-400 [facility] Comment on above: Order Comment: Speci men Type: BLOOD SPECIMENOrdering Facility: [facility] Address: [address] [place] [address] Performed By: #### B MP #### [place] [phone] RBC (Bld) [#/Vol] 3.39 10*6/uL Low 3.90-5.20 [facility] Comment on above: Order Comment: Speci men Type: BLOOD SPECIMENOrdering Facility: [facility] Address: [address] [place] [address] Performed By: #### B MP #### [place] [phone] WBC (Bld) [#/Vol] 7.39 10*3/uL Normal 3.70-11.00 [facility] Comment on above: Order Comment: Speci men Type: BLOOD SPECIMENOrdering Facility: [facility] Address: [address] [place] [address] Performed By: #### B MP #### [place] [address] CONSULT PROGon 04-03-2022 CONSULT PROG HNO ID: [id number] Author: Sarwat Huddleston PA-C Service: Pain Management Author Type: Physician Executive Vp Type: Consult Progress Note Filed: 04/03/2022 8:39 [...] and solution: Yes. Solution Ropi 0.1% at 0//?e. Adjuvant Pain Medication: See below Current Facility-Administered [...] appears comf (more content not included)... Normal [facility] CT ABD/PEL W IVCONon 022 CT [...] Lower thorax: Visualized lung bases are clear. 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 IMPRESSION: Postsurgical [...] collection is present in the lower pelvis Trial Court Justice: [facility] Transcribe Date/Time: Apr 03 2022 9:00P Dictated by : SHELBY ESPINOSA MD This examination was interpreted and the report reviewed and electronically signed by: SHELBY ESPINOSA MD on Apr 03 2022 9:12PM EST [id number] Normal [facility] Magnesium SerPl-mCncon 04-03 Magnesium [Mass/Vol] 1.6 mg/dL Low 1.7-2.3 [facility] Comment on above: Order Comment: Speci men Type: BLOOD SPECIMENOrdering Facility: [facility] Address: [address] [place], [place] [phone] Performed By: #### B MP #### [place] [address] NURSING PROGon 04-03-2022 NURSING PROG HNO ID: [id number] Author: Beto Ford RN Service: ? Author Type: Registered Nurse Type: Nursing Progress Note Filed: 04/03/2022 9:39 PM Note Text: Nursing Progress Note Patient Name: Mary Leal Patient Location: / __ Daily Note: 2129: Pt declined to have all oral medications. They just go right through me. I cannot take them. . Made RN aware. This note was completed by: Beto Ford [facility] NURSING PROG HNO ID: [id number] Author: Dipti Crowley RN Service: Nursing Author Type: Registered Nurse Type: Nursing Progress Note Filed: 04/03/2022 2:51 PM Note Text: Nursing Progress Note Patient Name: Mary Leal Patient Location: [id number] __ Daily Note:Patient unable to tolerate powder form of potassium due to nausea. Patient unable to tolerate IV form, it feels like It's paralyzing my arm . Attempted to dilute boluses and lower rates with no success. SR paged with events ([phone]). Awaiting further orders. This note was completed by: Dipti Crowley [facility] NURSING PROG HNO ID: [id number] Author: Dipti Crowley RN Service: Nursing Author Type: Registered Nurse Type: Nursing Progress Note Filed: 04/03/2022 11:33 AM Note Text: Nursing Progress Note Patient Name: Mary Leal Patient Location: [facility]/[id number] __ Daily Note: Patient Up independently in [...] This note was completed by: Dipti Crowley [facility] NURSING PROG HNO ID: [id number] Author: Chava Remy RN Service: PICC Team [...] 03, 2022 TIME: 8:37 AM PAGER/CONTACT #: [facility] NURSING PROG HNO ID: [id number] Author: Kev Leone RN Service: ? Author Type: Registered Nurse Type: Nursing Progress Note Filed: 04/03/2022 3:50 AM Note Text: Nursing Progress Note Patient Name: Mary Leal Patient Location: [place] [address]/[address] __ Daily Note: 2100: Pt refusing all PO meds at this time, states she's concerned that she's not digesting them properly. Paan currently being controlled with bilateral blocks and PRN IV pain medication. This note was completed by: Kev Leone [facility] Phosphate SerPl-mCncon 04-03 Phosphate [Mass/Vol] 3.3 mg/dL Normal 2.7-4.8 [facility] Comment on above: Order Comment: Speci men Type: BLOOD SPECIMENOrdering Facility: [facility] Address: [address] [place] [phone] Performed By: #### B #### [place] [id number] ALLIED HEALTHon 04-02-2022 ALLIED HEALTH HNO ID: [id number] Author: RT Bna(R) Service: Radiology Author Type: Technologist Type: Allied [...] Ban(R) April 02, 2022 9:12 AM Normal [facility] CONSULT PROGon 04-02-2022 CONSULT PROG HNO ID: [id number] Author: Sarwat Huddleston PA-C Service: Pain Management Author Type: Physician Executive Vp Type: Consult Progress Note Filed: 04/02/2022 9:00 [...] BP Temp Temp src Pulse Resp SpO2 05/28/22 0814 105/64 37.1 ?C (98.8 ?F) Oral 70 18 96 % Affect: awake, alert and oriented General Impression: appears comfortable ? Catheter sites are clean, non-tender and dressing intact. ? Respiratory Exam: Respirations: Breathing appears normal Thoracostomy tube?: No ? Gastrointestinal Exam: Abdomen: abd incision c/d/i NG?: No DATA: Lab Results Hemoglobin 9.6 04/01/2022 Hematocrit 29.3 5 (more content not included)... [facility] NURSING PROGon 04-02-2022 NURSING PROG HNO ID: [id number] Author: Dipti Crowley, RN Service: Nursing Author Type: Registered Nurse Type: Nursing Progress Note Filed: 04/02/2022 1:23 PM Note Text: Nursing Progress Note Patient Name: Mary Leal Patient Location: [place] [address]/[address]-22 __ Daily Note: Patient AANDOx3. VSS. RA POx. D51/2NS at 75 ml/hr. B/L Tap Block dressings CDI. Old ostomy with ABD and tape, CDI. 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 NPO status. Medicated with IV [...] This note was completed by: Dipti Crowley [facility] XR ABDOMEN 1V SUPINEon 04-02 [...] may be of help for further evaluation. Trial Court Justice: [facility] Transcribe Date/Time: Apr 02 2022 9:16A Dictated by : JOAQUIN BRYANT MD This examination was interpreted and the report reviewed and electronically signed by: JOAQUIN BRYANT MD on Apr 02 2022 9:19AM EST [id number] Normal [facility] Basic metabolic 2000 panelon 04-01-2022 Anion gap [Moles/Vol] 9 mmol/L Normal 9-18 [facility] Comment on above: Order Comment: Speci men Type: BLOOD SPECIMENOrdering Facility: [facility] Address: [address] [place] [address] Performed By: #### B MP #### [place] [phone] Calcium [Mass/Vol] 7.9 mg/dL Low 8.5-10.2 [facility] Comment on above: Order Comment: Speci men Type: BLOOD SPECIMENOrdering Facility: [facility] Address: [address] [place] [address] Performed By: #### B MP #### [place] [phone] Chloride [Moles/Vol] 106 mmol/L High 97-105 [facility] Comment on above: Order Comment: Speci men Type: BLOOD SPECIMENOrdering Facility: [facility] Address: [address] [place] [address] Performed By: #### B MP #### [place] [phone] CO2 [Moles/Vol] 26 mmol/L Normal 22-30 [facility] Comment on above: Order Comment: Speci men Type: BLOOD SPECIMENOrdering Facility: [facility] Address: [address] [place] [address] Performed By: #### B MP #### [place] [phone] Creatinine [Mass/Vol] 0.68 mg/dL Normal 0.58-0.96 [facility] Comment on above: Order Comment: Speci men Type: BLOOD SPECIMENOrdering Facility: [facility] Address: [address] [place], [place] [address] Performed By: #### B MP #### [place] [phone] ESTIMATED GLOMERULAR FILTRATION RATE 107 mL/min/1.73m??? Normal >=60 [facility] Comment on above: Order Comment: Speci men Type: BLOOD SPECIMENOrdering Facility: [facility] Address: [address] [place] [address] Result Comment: Mary mated Glomerular Filtration Rate [...] By: #### B MP #### [place] [phone] Glucose [Mass/Vol] 99 mg/dL Normal 74-99 [facility] Comment on above: Order Comment: Speci harrison Type: BLOOD SPECIMENOrdering Facility: [facility] Address: [address] [place] [address] Result Comment: The [employer] (ADA) provides guidance for cutoff [...] Standards of Medical Care in Diabetes 2016, [employer]. Diabetes Care. 2016.39(Suppl 1). Performed By: #### B MP #### [place] [phone] Potassium [Moles/Vol] 3.7 mmol/L Normal 3.7-5.1 [facility] Comment on above: Order Comment: Kaylini [facility] Type: BLOOD SPECIMENOrdering Facility: [facility] Address: [address] [place] [address] Performed By: #### B MP #### [place] [phone] Sodium [Moles/Vol] 141 mmol/L Normal 136-144 [facility] Comment on above: Order Comment: Leanne terry Type: BLOOD SPECIMENOrdering Facility: [facility] Address: [address] [place] [address] Performed By: #### B MP #### [place] [phone] Urea nitrogen [Mass/Vol] 4 mg/dL Low 7-21 [facility] Comment on above: Order Comment: Leanne [facility] Type: BLOOD SPECIMENOrdering Facility: [facility] Address: [address] [place] [address] Performed By: #### B MP #### [phone] CBC panel Auto (Bld)on 04-01 Erythrocyte distribution width (RBC) [Ratio] 12.4 % Normal 11.5-15.0 [facility] Comment on above: Order Comment: Leanne terry Type: BLOOD SPECIMEN [facility] Address: [address] [place] [address] Performed By: #### 5 8410-2 #### [facility] CLIA [id number] [address] [place] [address] OF [facility] Hematocrit (Bld) [Volume fraction] 29.3 % Low 36.0-46.0 [facility] Comment on above: Order Comment: Speci men Type: BLOOD SPECIMEN [facility] Address: [address] [place] [address] Performed By: #### 5 8410-2 #### [facility] CLIA [id number] [address] [place] [address] [place] Hemoglobin (Bld) [Mass/Vol] 9.6 g/dL Low 11.5-15.5 [facility] Comment on above: Order Comment: Speci men Type: BLOOD SPECIMEN [facility] Address: [address] [place] [address] Performed By: #### 5 8410-2 #### [facility] CLIA [id number] [address] [place] [address] [place] MCH (RBC) [Entitic mass] 29.4 pg Normal 26.0-34.0 [facility] Comment on above: Order Comment: Speci men Type: BLOOD SPECIMEN [facility] Address: [address] [place] [address] Performed By: #### 5 8410-2 #### [facility] CLIA [id number] [address] [place] [address] [place] MCHC (RBC) [Mass/Vol] 32.8 g/dL Normal 30.5-36.0 [facility] Comment on above: Order Comment: Speci men Type: BLOOD SPECIMEN [facility] Address: [address] [place] [address] Performed By: #### 5 8410-2 #### [facility] CLIA [id number] [address] [place] [address] [place] MCV (RBC) [Entitic vol] 89.9 fL Normal 80.0-100.0 [facility] Comment on above: Order Comment: Speci men Type: BLOOD SPECIMEN [facility] Address: [address] [place], [place] [address] Performed By: #### 5 8410-2 #### [facility] CLIA [id number] [address] [place] [address] [place] Nucleated RBC (Bld) [#/Vol] 10*3/uL Normal <0.01 [facility] Comment on above: Order Comment: Speci men Type: BLOOD SPECIMEN [facility] Address: [address] [place] [address] Performed By: #### 5 8410-2 #### [facility] CLIA [id number] [address] [place] [address] [place] Platelet mean volume (Bld) [Entitic vol] 8.9 fL Low 9.0-12.7 [facility] Comment on above: Order Comment: Speci men Type: BLOOD SPECIMEN [facility] Address: [address] [place] [address] Performed By: #### 5 8410-2 #### [facility] CLIA [id number] [address] [place] [address] [place] Platelets (Bld) [#/Vol] 282 10*3/uL Normal 150-400 [facility] Comment on above: Order Comment: Speci men Type: BLOOD SPECIMEN [facility] Address: [address] [place] [address] Performed By: #### 5 8410-2 #### [facility] CLIA [id number] [address] [place] [address] [place] RBC (Bld) [#/Vol] 3.26 10*6/uL Low 3.90-5.20 [facility] Comment on above: Order Comment: Speci men Type: BLOOD SPECIMEN [facility] Address: [address] [place] [address] Performed By: #### 5 8410-2 #### [facility] CLIA [id number] [address] [place] [address] [place] WBC (Bld) [#/Vol] 7.39 10*3/uL Normal 3.70-11.00 [facility] Comment on above: Order Comment: Speci men Type: BLOOD SPECIMEN [facility] Address: [address] [place] [address] Performed By: #### 5 8410-2 #### [facility] CLIA [id number] [address] [place] [address] [place] CONSULT PROGon 04-01-2022 CONSULT PROG HNO ID: [id number] Author: Joslyn Jain APRN.KWESI Service: Pain Management [...] 0.67 Sod (more content not included)... Normal [facility] Magnesium SerPl-mCncon 04-01 Magnesium [Mass/Vol] 1.7 mg/dL Normal 1.7-2.3 [facility] Comment on above: Order Comment: Speci men Type: BLOOD SPECIMENOrdering Facility: [facility] Address: [address] [place] [address] Performed By: #### B MP #### [address] [address] NURSING PROGon 04-01-2022 NURSING PROG HNO ID: [id number] Author: Tez Gu RN Service: ? Author Type: Registered Nurse Type: Nursing Progress Note Filed: 04/01/2022 9:56 PM Note Text: Nursing Progress Note Patient Name: Mary Leal Patient Location: __ Daily Note:04/01/222038 Pt is alert and oriented x3. Surgical sites intact. Tap blocks x2 intact. Made SROC aware of Pt experiencing sharp/stabbing pain in abdomen, rating 9/10. SROC recommended use of PRN Dilaudid This note was completed by: Tez [facility] NURSING PROG HNO ID: [id number] Author: Tez Gu RN Service: ? Author Type: Registered Nurse Type: Nursing Progress Note Filed: 04/01/2022 1:52 AM Note Text: Nursing Progress Note Patient Name: Mary Leal Patient Location: __ Daily Note:03/31/222030 Pt is alert and oriented x3. Surgical sites intact. Nerve blocks x2 intact. This note was completed by: [facility] Phosphate SerPl-mCncon 04-01 Phosphate [Mass/Vol] 2.8 mg/dL Normal 2.7-4.8 [facility] Comment on above: Order Comment: Speci men Type: BLOOD SPECIMENOrdering Facility: [facility] Address: [address] [place] [address] Performed By: #### B #### [place] [address] Basic metabolic 2000 panelon 03-31-2022 Anion gap [Moles/Vol] 10 mmol/L Normal 9-18 [facility] Comment on above: Order Comment: Speci men Type: BLOOD SPECIMEN [facility] Address: [address] [place] [address] Performed By: #### 5 8410-2 #### [facility] CLIA [id number] [address] [place] [address] [place] Calcium [Mass/Vol] 8.4 mg/dL Low 8.5-10.2 [facility] Comment on above: Order Comment: Speci men Type: BLOOD SPECIMEN [facility] Address: [address] [place] [address] Performed By: #### 5 8410-2 #### [facility] CLIA [id number] [address] [place] [address] [place] Chloride [Moles/Vol] 107 mmol/L High 97-105 [facility] Comment on above: Order Comment: Speci men Type: BLOOD SPECIMEN [facility] Address: [address] [place] [address] Performed By: #### 5 8410-2 #### [facility] CLIA [id number] [address] [place] [address] [place] CO2 [Moles/Vol] 23 mmol/L Normal 22-30 [facility] Comment on above: Order Comment: Speci men Type: BLOOD SPECIMEN [facility] Address: [address] [place] [address] Performed By: #### 5 8410-2 #### [facility] CLIA [id number] [address] [place] [address] [place] Creatinine [Mass/Vol] 0.67 mg/dL Normal 0.58-0.96 [facility] Comment on above: Order Comment: Speci men Type: BLOOD SPECIMEN [facility] Address: [address] [place] [address] Performed By: #### 5 8410-2 #### [facility] CLIA [id number] [address] ESTIMATED GLOMERULAR FILTRATION RATE 107 mL/min/1.73m??? Normal >=60 [facility] Comment on above: Order Comment: Leanne terry Type: BLOOD SPECIMEN [facility] Address: [address] [place] [address] Result Comment: Mary mated Glomerular Filtration Rate [...] GFR. Performed By: #### 5 8410-2 #### [facility] CLIA [id number] [address] [place] [address] [facility] [place] Glucose [Mass/Vol] 84 mg/dL Normal 74-99 [facility] Comment on above: Order Comment: Leanne terry Type: BLOOD SPECIMEN [facility] Address: [address] [place] [address] Result Comment: The [place] Diabetes Association (ADA) provides guidance for cutoff [...] Standards of Medical Care in Diabetes 2016, [place] [employer]. Diabetes Care. 2016.39(Suppl 1). Performed By: #### 5 8410-2 #### [facility] CLIA [id number] [address] [place] [address] [place] Potassium [Moles/Vol] 3.8 mmol/L Normal 3.7-5.1 [facility] Comment on above: Order Comment: Speci men Type: BLOOD SPECIMEN [facility]: [facility] Address: [address] [place] [address] Performed By: #### 5 8410-2 #### [facility] CLIA [id number] [address] [place] [address] [place] Sodium [Moles/Vol] 140 mmol/L Normal 136-144 [facility] Comment on above: Order Comment: Speci men Type: BLOOD SPECIMEN [facility] Address: [address] [place] [address] Performed By: #### 5 8410-2 #### [facility] CLIA [id number] [address] [place] [address] [place] Urea nitrogen [Mass/Vol] 11 mg/dL Normal 7-21 [facility] Comment on above: Order Comment: Speci men Type: BLOOD SPECIMEN [facility] Address: [address] [place] [address] Performed By: #### 5 8410-2 #### [facility] CLIA [id number] [address] [place] [address] [place] CBC W Auto Differential pane l (Bld)on 03-31-2022 Basophils (Bld) [#/Vol] 0.03 10*3/uL Normal <0.11 [facility] Comment on above: Order Comment: Speci men Type: BLOOD SPECIMEN [facility] Address: [address] [place] [address] Performed By: #### 5 7021-8 #### [facility] CLIA [id number] [address] [place] [address] [place] Basophils/100 WBC (Bld) 0.4 % Normal [facility] Comment on above: Order Comment: Speci men Type: BLOOD SPECIMEN Ordering Facility: [facility] Address: [address] [place] [address] Performed By: #### 5 7021-8 #### [facility] CLIA [id number] [address] [place] [address] [place] Differential cell count method Nom (Bld) Auto Normal [facility] Comment on above: Order Comment: Speci men Type: BLOOD SPECIMEN Ordering Facility: [facility] Address: [address] [place] [address] Performed By: #### 5 7021-8 #### [facility] CLIA [id number] [address] [place] [address] [place] Eosinophils (Bld) [#/Vol] 0.38 10*3/uL Normal <0.46 [facility] Comment on above: Order Comment: Speci men Type: BLOOD SPECIMEN Ordering Facility: [facility] Address: [address] [place] [address] Performed By: #### 5 7021-8 #### [facility] CLIA [id number] [address] [place] [address] [place] Eosinophils/100 WBC (Bld) 4.4 % Normal [facility] Comment on above: Order Comment: Speci men Type: BLOOD SPECIMEN Ordering Facility: [facility] Address: [address] [place] [address] Performed By: #### 5 7021-8 #### [facility] CLIA [id number] [address] [place] [address] [place] Erythrocyte distribution width (RBC) [Ratio] 12.6 % Normal 11.5-15.0 [facility] Comment on above: Order Comment: Speci men Type: BLOOD SPECIMEN Ordering Facility: [facility] Address: [address] [place] [address] Performed By: #### 5 7021-8 #### [facility] CLIA [id number] [address] [place] [address] [place] Hematocrit (Bld) [Volume fraction] 30.0 % Low 36.0-46.0 [facility] Comment on above: Order Comment: Speci men Type: BLOOD SPECIMEN Ordering Facility: [facility] Address: [address] [place] [address] Performed By: #### 5 7021-8 #### [facility] CLIA [id number] [address] [place] [address] [place] Hemoglobin (Bld) [Mass/Vol] 9.9 g/dL Low 11.5-15.5 [facility] Comment on above: Order Comment: Speci men Type: BLOOD SPECIMEN Ordering Facility: [facility] Address: [address] [place] [address] Performed By: #### 5 7021-8 #### [facility] CLIA [id number] [address] [place] [address] [place] IMMATURE GRAN % 0.4 % Normal [facility] Comment on above: Order Comment: Speci men Type: BLOOD SPECIMEN Ordering Facility: [facility] Address: [address] [place] [address] Performed By: #### 5 7021-8 #### [facility] CLIA [id number] [address] [place] [address] [place] IMMATURE GRAN ABS 0.03 k/uL Normal <0.10 [facility] Comment on above: Order Comment: Speci men Type: BLOOD SPECIMEN Ordering Facility: [facility] Address: [address] [place] [address] Performed By: #### 5 7021-8 #### [facility] CLIA [id number] [address] [place] [address] [place] Lymphocytes (Bld) [#/Vol] 1.24 10*3/uL Normal 1.00-4.00 [facility] Comment on above: Order Comment: Speci men Type: BLOOD SPECIMEN Ordering Facility: [facility] Address: [address] [place] [address] Performed By: #### 5 7021-8 #### [facility] CLIA [id number] [address] [place] [address] [place] Lymphocytes/100 WBC (Bld) 14.5 % Normal [facility] Comment on above: Order Comment: Speci men Type: BLOOD SPECIMEN Ordering Facility: [facility] Address: [address] [address] Performed By: #### 5 7021-8 #### [facility] CLIA [id number] [address] [place] [address] [place] MCH (RBC) [Entitic mass] 29.6 pg Normal 26.0-34.0 [facility] Comment on above: Order Comment: Speci men Type: BLOOD SPECIMEN Ordering Facility: [facility] Address: [address] [place] [address] Performed By: #### 5 7021-8 #### [facility] CLIA [id number] [address] [place] [address] [place] MCHC (RBC) [Mass/Vol] 33.0 g/dL Normal 30.5-36.0 [facility] Comment on above: Order Comment: Speci men Type: BLOOD SPECIMEN Ordering Facility: [facility] Address: [address] [place] [address] Performed By: #### 5 7021-8 #### [facility] CLIA [id number] [address] [place] [address] [place] MCV (RBC) [Entitic vol] 89.8 fL Normal 80.0-100.0 [facility] Comment on above: Order Comment: Speci men Type: BLOOD SPECIMEN Ordering Facility: [facility] Address: [address] [place] [address] Performed By: #### 5 7021-8 #### [facility] CLIA [id number] [address] [place] [address] [place] Monocytes (Bld) [#/Vol] 0.48 10*3/uL Normal <0.87 [facility] Comment on above: Order Comment: Speci men Type: BLOOD SPECIMEN Ordering Facility: [facility] Address: [address] [place] [address] Performed By: #### 5 7021-8 #### [facility] CLIA [id number] [address] [place] [address] [place] Monocytes/100 WBC (Bld) 5.6 % Normal [facility] Comment on above: Order Comment: Speci men Type: BLOOD SPECIMEN Ordering Facility: [facility] Address: [address] [place] [address] Performed By: #### 5 7021-8 #### [facility] CLIA [id number] [address] [place] [address] [place] Neutrophils (Bld) [#/Vol] 6.41 10*3/uL Normal 1.45-7.50 [facility] Comment on above: Order Comment: Speci men Type: BLOOD SPECIMEN Ordering Facility: [facility] Address: [address] [place] [address] Performed By: #### 5 7021-8 #### [facility] CLIA [id number] [address] [place] [address] [place] Neutrophils/100 WBC (Bld) 74.7 % Normal [facility] Comment on above: Order Comment: Speci men Type: BLOOD SPECIMEN Ordering Facility: [facility] Address: [address] [place] [address] Performed By: #### 5 7021-8 #### [facility] CLIA [id number] [address] [place] [address] [place] Nucleated RBC (Bld) [#/Vol] 10*3/uL Normal <0.01 [facility] Comment on above: Order Comment: Speci men Type: BLOOD SPECIMEN Ordering Facility: [facility] Address: [address] [place] [address] Performed By: #### 5 7021-8 #### [facility] CLIA [id number] [address] [place] [address] [place] Nucleated RBC/100 WBC (Bld) [Ratio] 0.0 /100 WBC Normal [facility] Comment on above: Order Comment: Speci men Type: BLOOD SPECIMEN Ordering Facility: [facility] Address: [address] [place] [address] Performed By: #### 5 7021-8 #### [facility] CLIA [id number] [address] [place] [address] [place] Platelet mean volume (Bld) [Entitic vol] 9.0 fL Normal 9.0-12.7 [facility] Comment on above: Order Comment: Speci men Type: BLOOD SPECIMEN Ordering Facility: [facility] Address: [address] [place] [address] Performed By: #### 5 7021-8 #### [facility] CLIA [id number] [address] [place] [address] [place] Platelets (Bld) [#/Vol] 246 10*3/uL Normal 150-400 [facility] Comment on above: Order Comment: Speci men Type: BLOOD SPECIMEN Ordering Facility: [facility] Address: [address] [place] [address] Performed By: #### 5 7021-8 #### [facility] CLIA [id number] [address] [place] [address] [place] RBC (Bld) [#/Vol] 3.34 10*6/uL Low 3.90-5.20 [facility] Comment on above: Order Comment: Speci men Type: BLOOD SPECIMEN Ordering Facility: [facility] Address: [address] [place] [address] Performed By: #### 5 7021-8 #### [facility] CLIA [id number] [address] [place] [address] [place] WBC (Bld) [#/Vol] 8.57 10*3/uL Normal 3.70-11.00 [facility] Comment on above: Order Comment: Speci men Type: BLOOD SPECIMEN Ordering Facility: [facility] Address: [address] [place] [address] Performed By: #### 5 7021-8 #### [facility] CLIA [id number] [address] [place] [address] [place] CONSULT PROGon 03-31-2022 CONSULT PROG HNO ID: [id number] Author: Joslyn Jain APRN.CHEMISTRY DEPARTMENT CHAIR Service: Pain Management Author Type: Nurse Practitioner [...] AND U (more content not included)... Normal [facility] Magnesium SerPl-mCncon 03-31 Magnesium [Mass/Vol] 1.6 mg/dL Low 1.7-2.3 [facility] Comment on above: Order Comment: Speci men Type: BLOOD SPECIMEN Ordering Facility: [facility] Address: [address] [place] [address] Performed By: #### 5 8410-2 #### [facility] CLIA [id number] [address] [place] [address] OF [facility] NURSING PROGon 03-31-2022 NURSING PROG HNO ID: [id number] Author: Daisy Amaya RN Service: Nursing Author Type: Registered Nurse Type: Nursing Progress Note Filed: 03/31/2022 4:56 PM Note Text: Nursing Progress Note Patient Name: Mary Leal Patient Location: [facility]/ __ Daily Note: 0931- Pt A+Ox3. Up with standby assist. Ambulated pod multiple times. Laps intact. Old ostomy site WNL. Pt having liquid brown BMs. Voiding adq. No nausea, cp, or sob. Taps infusing per JAN. Pain controlled with PRN oxy. No further needs at this time. This note was completed by: Daisy Amaya [facility] NURSING PROG HNO ID: [id number] Author: Mariluz Carnes, RN Service: Nursing Author Type: Registered Nurse Type: Nursing Progress Note Filed: 03/30/2022 11:47 PM Note Text: Nursing Progress Note Patient Name: Mary Leal Patient Location: [place] [address] [address] __ Daily Note: Pt's BP 90/52. Patient asymptomatic. Surgery made aware. Order in for [facility] LR 500CC's. This note was completed by: Mariluz Carnes [facility] Phosphate SerPl-mCncon 03-31 Phosphate [Mass/Vol] 2.7 mg/dL Normal 2.7-4.8 [facility] Comment on above: Order Comment: Speci men Type: BLOOD SPECIMEN Ordering Facility: [facility] Address: [address] [place] [id number] Performed By: #### 5 8410-2 #### [facility] CLIA [id number] [address] [place] [address] [place] Basic metabolic 2000 panelon 03-30-2022 Anion gap [Moles/Vol] 10 mmol/L Normal 9-18 [facility] Comment on above: Order Comment: Speci men Type: BLOOD SPECIMEN Ordering Facility: [facility] Address: [address] [place] [address] [place] [address] Performed By: #### 1 9123-9, 2771, 22682-4 #### [facility] CLIA [id number] [address] [place] [address] [place] Calcium [Mass/Vol] 8.5 mg/dL Normal 8.5-10.2 [facility] Comment on above: Order Comment: Speci men Type: BLOOD SPECIMEN Ordering Facility: [facility] Address: [address] Performed By: #### 1 9123-9, 27705-06, 53754-3 #### [facility] CLIA [id number] [address] [place] [address] [place] Chloride [Moles/Vol] 103 mmol/L Normal 97-105 [facility] Comment on above: Order Comment: Speci men Type: BLOOD SPECIMEN Ordering Facility: [facility] Address: [address] Performed By: #### 1 9123-9, 27705-06, #### [facility] CLIA [id number] [address] [place] [address] [place] CO2 [Moles/Vol] 24 mmol/L Normal 22-30 [facility] Comment on above: Order Comment: Speci men Type: BLOOD SPECIMEN Ordering Facility: [facility] Address: [address] Performed By: #### 1 9123-9, 27705-06, 09197-2 #### [facility] CLIA [id number] [address] [place] [address] [place] Creatinine [Mass/Vol] 0.69 mg/dL Normal 0.58-0.96 [facility] Comment on above: Order Comment: Speci men Type: BLOOD SPECIMEN Ordering Facility: [facility] Address: [address] Performed By: #### 1 9123-9, 2777, 54396-3 #### [facility] CLIA [id number] [place] [address] [place] ESTIMATED GLOMERULAR FILTRATION RATE 107 mL/min/1.73m??? Normal >=60 [facility] Comment on above: Order Comment: Leanne terry Type: BLOOD SPECIMEN Ordering Facility: [facility] Address: [address] [place], [place] [address] Result Comment: Mary mated Glomerular Filtration Rate [...] GFR. Performed By: #### 1 9123-9, 2777-1, 51946-8 #### [facility] CLIA [id number] [place] [address] [place] Glucose [Mass/Vol] 117 mg/dL High 74-99 [facility] Comment on above: Order Comment: Leanne terry Type: BLOOD SPECIMEN Ordering Facility: [facility] Address: [address] [place] [address] Result Comment: The [place] [employer] (ADA) provides guidance for cutoff [...] Standards of Medical Care in Diabetes 2016, [place] [employer]. Diabetes Care. 2016.39(Suppl 1). Performed By: #### 1 9123-9, 2777-1, 66534-0 #### [facility] CLIA [id number] [place] [address] [place] Potassium [Moles/Vol] 3.9 mmol/L Normal 3.7-5.1 [facility] Comment on above: Order Comment: Speci men Type: BLOOD SPECIMEN Ordering Facility: [facility] Address: [address] [place] [address] Performed By: #### 1 9123-9, 2777, 75812-0 #### [facility] CLIA [id number] [address] [place] [address] [place] Sodium [Moles/Vol] 137 mmol/L Normal 136-144 [facility] Comment on above: Order Comment: Speci men Type: BLOOD SPECIMEN Ordering Facility: [facility] Address: [address] [place] [address] Performed By: #### 1 9123-9, 27705-06, 68266-2 #### [facility] CLIA [id number] [address] [place] [address] [place] Urea nitrogen [Mass/Vol] 13 mg/dL Normal 7-21 [facility] Comment on above: Order Comment: Speci men Type: BLOOD SPECIMEN Ordering Facility: [facility] Address: [address] [place] [address] Performed By: #### 1 9123-9, 27705-06, 08415-2 #### [facility] CLIA [id number] [address] [place] [address] [place] CBC panel Auto (Bld)on 03-30 Erythrocyte distribution width (RBC) [Ratio] 12.8 % Normal 11.5-15.0 [facility] Comment on above: Order Comment: Speci men Type: BLOOD SPECIMEN Ordering Facility: [facility] Address: [address] [place] [address] Performed By: #### 5 8410-2 #### [facility] CLIA [id number] [address] [place] [address] [place] Hematocrit (Bld) [Volume fraction] 35.0 % Low 36.0-46.0 [facility] Comment on above: Order Comment: Speci men Type: BLOOD SPECIMEN Ordering Facility: [facility] Address: [address] [place] [address] Performed By: #### 5 8410-2 #### [facility] CLIA [id number] [address] [place] [address] OF [facility] Hemoglobin (Bld) [Mass/Vol] 11.8 g/dL Normal 11.5-15.5 [facility] Comment on above: Order Comment: Speci men Type: BLOOD SPECIMEN Ordering Facility: [facility] Address: [address] [place] [address] Performed By: #### 5 8410-2 #### [facility] CLIA [id number] [address] [place] [address] [place] MCH (RBC) [Entitic mass] 30.6 pg Normal 26.0-34.0 [facility] Comment on above: Order Comment: Speci men Type: BLOOD SPECIMEN Ordering Facility: [facility] Address: [address] [place] [address] Performed By: #### 5 8410-2 #### [facility] CLIA [id number] [address] [place] [address] MCHC (RBC) [Mass/Vol] 33.7 g/dL Normal 30.5-36.0 [facility] Comment on above: Order Comment: Speci men Type: BLOOD SPECIMEN Ordering Facility: [facility] Address: [address] [place] [address] Performed By: #### 5 8410-2 #### [facility] CLIA [id number] [address] [place] [address] [place] MCV (RBC) [Entitic vol] 90.7 fL Normal 80.0-100.0 [facility] Comment on above: Order Comment: Speci men Type: BLOOD SPECIMEN Ordering Facility: [facility] Address: [address] [place] [address] Performed By: #### 5 8410-2 #### [facility] CLIA [id number] [address] [place] [address] Nucleated RBC (Bld) [#/Vol] 10*3/uL Normal <0.01 [facility] Comment on above: Order Comment: Speci men Type: BLOOD SPECIMEN Ordering Facility: [facility] Address: [address] [place] [address] Performed By: #### 5 8410-2 #### [facility] CLIA [id number] [address] [place] [address] [place] Platelet mean volume (Bld) [Entitic vol] 8.9 fL Low 9.0-12.7 [facility] Comment on above: Order Comment: Speci men Type: BLOOD SPECIMEN Ordering Facility: [facility] Address: [address] [place] [address] Performed By: #### 5 8410-2 #### [facility] CLIA [id number] [address] [place] [address] [place] Platelets (Bld) [#/Vol] 293 10*3/uL Normal 150-400 [facility] Comment on above: Order Comment: Speci men Type: BLOOD SPECIMEN Ordering Facility: [facility] Address: [address] [place] [address] Performed By: #### 5 8410-2 #### [facility] CLIA [id number] [address] [place] [address] [place] RBC (Bld) [#/Vol] 3.86 10*6/uL Low 3.90-5.20 [facility] Comment on above: Order Comment: Speci men Type: BLOOD SPECIMEN Ordering Facility: [facility] Address: [address] [place] [address] Performed By: #### 5 8410-2 #### [facility] CLIA [id number] [address] [place] [address] [place] WBC (Bld) [#/Vol] 11.25 10*3/uL High 3.70-11.00 [facility] Comment on above: Order Comment: Speci men Type: BLOOD SPECIMEN Ordering Facility: [facility] Address: [address] [place] [address] Performed By: #### 5 8410-2 #### [facility] CLIA [id number] [address] [place] [address] [place] CONSULT PROGon 03-30-2022 CONSULT PROG HNO ID: [id number] Author: Joslyn Jain APRN.KWESI Service: Pain Management [...] eGFR >= (more content not included)... Normal [facility] Magnesium [Mass/Vol] 1.6 mg/dL Low 1.7-2.3 [facility] Comment on above: Order Comment: Kaylini harrison Type: BLOOD SPECIMEN Ordering Facility: [facility] Address: [address] [place] [phone] Performed By: #### 1 9123-9, 2777-1, 70817-8 #### [facility] [place] [id number] [place] Phosphate SerPl-mCncon 03-30 Phosphate [Mass/Vol] 2.9 mg/dL Normal 2.7-4.8 [facility] Comment on above: Order Comment: Kaylini men Type: BLOOD SPECIMEN Ordering Facility: [facility] Address: [facility] [address] [id number] Performed By: #### 1 9123-9, 2777-1, 41834-4 #### [id number] [address] [place] [address] [place] ANES POSTPROC EVALon 022 ANES POSTPROC EVAL HNO ID: [id number] Author: Nathanael Craig DO Service: Anesthesiology Author [...] March 29, 2022 TIME: 8:29 AM CSN: [id number] [facility] Basic metabolic 2000 panelon 03-29-2022 Anion gap [Moles/Vol] 9 mmol/L Normal 9-18 [facility] Comment on above: Order Comment: Speci men Type: BLOOD SPECIMEN Ordering Facility: [facility] Address: [address] [place] [address] Performed By: #### 5 8410-2 #### [facility] CLIA [id number] [place] [address] [place] Calcium [Mass/Vol] 7.9 mg/dL Low 8.5-10.2 [facility] Comment on above: Order Comment: Speci men Type: BLOOD SPECIMEN Ordering Facility: [facility] Address: [address] [place] [address] Performed By: #### 5 8410-2 #### [facility] CLIA [id number] [address] [place] [address] [place] Chloride [Moles/Vol] 105 mmol/L Normal 97-105 [facility] Comment on above: Order Comment: Speci men Type: BLOOD SPECIMEN Ordering Facility: [facility] Address: [address] [place] [address] Performed By: #### 5 8410-2 #### [facility] CLIA [id number] [address] [place] [address] [place] CO2 [Moles/Vol] 24 mmol/L Normal 22-30 [facility] Comment on above: Order Comment: Speci men Type: BLOOD SPECIMEN Ordering Facility: [facility] Address: [address] [place] [address] Performed By: #### 5 8410-2 #### [facility] CLIA [id number] [place] [address] [place] Creatinine [Mass/Vol] 0.70 mg/dL Normal 0.58-0.96 [facility] Comment on above: Order Comment: Speci men Type: BLOOD SPECIMEN Ordering Facility: [facility] Address: [address] [place] [address] Performed By: #### 5 8410-2 #### [facility] CLIA [id number] [place] [address] [place] ESTIMATED GLOMERULAR FILTRATION RATE 106 mL/min/1.73m??? Normal >=60 [facility] Comment on above: Order Comment: Leanne terry Type: BLOOD SPECIMEN Ordering Facility: [facility] Address: [address] [place] [address] Result Comment: Mary mated Glomerular Filtration Rate [...] GFR. Performed By: #### 5 8410-2 #### [facility] CLIA [id number] [place] [address] [place] Glucose [Mass/Vol] 92 mg/dL Normal 74-99 [facility] Comment on above: Order Comment: Leanne terry Type: BLOOD SPECIMEN Ordering Facility: [facility] Address: [address] [place] [address] Result Comment: The [place] Diabetes [employer] (ADA) provides guidance for cutoff [...] Standards of Medical Care in Diabetes 2016, [place] [employer]. Diabetes Care. 2016.39(Suppl 1). Performed By: #### 5 8410-2 #### [facility] CLIA [id number] [address] [place] [address] [place] Potassium [Moles/Vol] 4.1 mmol/L Normal 3.7-5.1 [facility] Comment on above: Order Comment: Speci men Type: BLOOD SPECIMEN Ordering Facility: [facility] Address: [address] [place] [address] Performed By: #### 5 8410-2 #### [facility] CLIA [id number] [address] [place] [address] [place] Sodium [Moles/Vol] 138 mmol/L Normal 136-144 [facility] Comment on above: Order Comment: Speci men Type: BLOOD SPECIMEN Ordering Facility: [facility] Address: [address] [place] [address] Performed By: #### 5 8410-2 #### [facility] CLIA [id number] [address] [place] [address] [place] Urea nitrogen [Mass/Vol] 12 mg/dL Normal 7-21 [facility] Comment on above: Order Comment: Speci men Type: BLOOD SPECIMEN Ordering Facility: [facility] Address: [address] [place] [address] Performed By: #### 5 8410-2 #### [facility] CLIA [id number] [address] [place] [address] [place] CBC W Auto Differential pane l (Bld)on 03-29-2022 Basophils (Bld) [#/Vol] 0.04 10*3/uL Normal <0.11 [facility] Comment on above: Order Comment: Speci men Type: BLOOD SPECIMEN Ordering Facility: [facility] Address: [address] [place] [address] Performed By: #### 5 7021-8 #### [facility] CLIA [id number] [address] [place] [address] [place] Basophils/100 WBC (Bld) 0.6 % Normal [facility] Comment on above: Order Comment: Speci men Type: BLOOD SPECIMEN Ordering Facility: [facility] Address: [address] [place] [address] Performed By: #### 5 7021-8 #### [facility] CLIA [id number] [address] [place] [address] [place] Differential cell count method Nom (Bld) Auto Normal [facility] Comment on above: Order Comment: Speci men Type: BLOOD SPECIMEN Ordering Facility: [facility] Address: [address] [place] [address] Performed By: #### 5 7021-8 #### [facility] CLIA [id number] [address] [place] [address] [place] Eosinophils (Bld) [#/Vol] 0.16 10*3/uL Normal <0.46 [facility] Comment on above: Order Comment: Speci men Type: BLOOD SPECIMEN Ordering Facility: [facility] Address: [address] [place] [address] Performed By: #### 5 7021-8 #### [facility] CLIA [id number] [address] [place] [address] [place] Eosinophils/100 WBC (Bld) 2.3 % Normal [facility] Comment on above: Order Comment: Speci men Type: BLOOD SPECIMEN Ordering Facility: [facility] Address: [address] [place] [address] Performed By: #### 5 7021-8 #### [facility] CLIA [id number] [address] [place] [address] [place] Erythrocyte distribution width (RBC) [Ratio] 12.8 % Normal 11.5-15.0 [facility] Comment on above: Order Comment: Speci men Type: BLOOD SPECIMEN Ordering Facility: [facility] Address: [address] [place] [address] Performed By: #### 5 7021-8 #### [facility] CLIA [id number] [address] [place] [address] [place] Hematocrit (Bld) [Volume fraction] 32.3 % Low 36.0-46.0 [facility] Comment on above: Order Comment: Speci men Type: BLOOD SPECIMEN Ordering Facility: [facility] Address: [address] [place] [address] Performed By: #### 5 7021-8 #### [facility] CLIA [id number] [address] [place] [address] [place] Hemoglobin (Bld) [Mass/Vol] 10.7 g/dL Low 11.5-15.5 [facility] Comment on above: Order Comment: Speci men Type: BLOOD SPECIMEN Ordering Facility: [facility] Address: [address] [place] [address] Performed By: #### 5 7021-8 #### [facility] CLIA [id number] [address] [place] [address] [place] IMMATURE GRAN % 0.3 % Normal [facility] Comment on above: Order Comment: Speci men Type: BLOOD SPECIMEN Ordering Facility: [facility] Address: [address] [place] [address] Performed By: #### 5 7021-8 #### [facility] CLIA [id number] [address] [place] [address] [place] IMMATURE GRAN ABS <0.03 Normal <0.10 [facility] Comment on above: Order Comment: Speci men Type: BLOOD SPECIMEN Ordering Facility: [facility] Address: [address] [place] [address] Performed By: #### 5 7021-8 #### [facility] CLIA [id number] [address] [place] [address] [place] Lymphocytes (Bld) [#/Vol] 1.39 10*3/uL Normal 1.00-4.00 [facility] Comment on above: Order Comment: Speci men Type: BLOOD SPECIMEN Ordering Facility: [facility] Address: [address] [place] [address] Performed By: #### 5 7021-8 #### [facility] CLIA [id number] [address] [place] [address] [place] Lymphocytes/100 WBC (Bld) 19.7 % Normal [facility] Comment on above: Order Comment: Speci men Type: BLOOD SPECIMEN Ordering Facility: [facility] Address: [address] [place] [address] Performed By: #### 5 7021-8 #### [facility] CLIA [id number] [address] [place] [address] MCH (RBC) [Entitic mass] 29.8 pg Normal 26.0-34.0 [facility] Comment on above: Order Comment: Speci men Type: BLOOD SPECIMEN Ordering Facility: [facility] Address: [address] [place] [address] Performed By: #### 5 7021-8 #### [facility] CLIA [id number] [address] [place] [address] [place] MCHC (RBC) [Mass/Vol] 33.1 g/dL Normal 30.5-36.0 [facility] Comment on above: Order Comment: Speci men Type: BLOOD SPECIMEN Ordering Facility: [facility] Address: [address] [place] [address] Performed By: #### 5 7021-8 #### [facility] CLIA [id number] [address] [place] [address] [place] MCV (RBC) [Entitic vol] 90.0 fL Normal 80.0-100.0 [facility] Comment on above: Order Comment: Speci men Type: BLOOD SPECIMEN Ordering Facility: [facility] Address: [address] [place] [address] Performed By: #### 5 7021-8 #### [facility] CLIA [id number] [address] [place] [address] [place] Monocytes (Bld) [#/Vol] 0.55 10*3/uL Normal <0.87 [facility] Comment on above: Order Comment: Speci men Type: BLOOD SPECIMEN Ordering Facility: [facility] Address: [address] [place] [address] Performed By: #### 5 7021-8 #### [facility] CLIA [id number] [address] [place] [address] Monocytes/100 WBC (Bld) 7.8 % Normal [facility] Comment on above: Order Comment: Speci men Type: BLOOD SPECIMEN Ordering Facility: [facility] Address: [address] [place] [address] Performed By: #### 5 7021-8 #### [facility] CLIA [id number] [address] [place] [address] [place] Neutrophils (Bld) [#/Vol] 4.88 10*3/uL Normal 1.45-7.50 [facility] Comment on above: Order Comment: Speci men Type: BLOOD SPECIMEN Ordering Facility: [facility] Address: [address] [place] [address] Performed By: #### 5 7021-8 #### [facility] CLIA [id number] [address] [place] [address] [place] Neutrophils/100 WBC (Bld) 69.3 % Normal [facility] Comment on above: Order Comment: Speci men Type: BLOOD SPECIMEN Ordering Facility: [facility] Address: [address] [place] [address] Performed By: #### 5 7021-8 #### [facility] CLIA [id number] [address] [place] [address] [place] Nucleated RBC (Bld) [#/Vol] 10*3/uL Normal <0.01 [facility] Comment on above: Order Comment: Speci men Type: BLOOD SPECIMEN Ordering Facility: [facility] Address: [address] [place] [address] Performed By: #### 5 7021-8 #### [facility] CLIA [id number] [address] [place] [address] [place] Nucleated RBC/100 WBC (Bld) [Ratio] 0.0 /100 WBC Normal [facility] Comment on above: Order Comment: Speci men Type: BLOOD SPECIMEN Ordering Facility: [facility] Address: [address] [place] [address] Performed By: #### 5 7021-8 #### [facility] CLIA [id number] [address] [place] [address] [place] Platelet mean volume (Bld) [Entitic vol] 9.0 fL Normal 9.0-12.7 [facility] Comment on above: Order Comment: Speci men Type: BLOOD SPECIMEN Ordering Facility: [facility] Address: [address] [place] [address] Performed By: #### 5 7021-8 #### [facility] CLIA [id number] [address] [place] [address] [place] Platelets (Bld) [#/Vol] 241 10*3/uL Normal 150-400 [facility] Comment on above: Order Comment: Speci men Type: BLOOD SPECIMEN Ordering Facility: [facility] Address: [address] [place] [address] Performed By: #### 5 7021-8 #### [facility] CLIA [id number] [address] [place] [address] [place] RBC (Bld) [#/Vol] 3.59 10*6/uL Low 3.90-5.20 [facility] Comment on above: Order Comment: Speci men Type: BLOOD SPECIMEN Ordering Facility: [facility] Address: [address] [place] [address] Performed By: #### 5 7021-8 #### [facility] IA [id number] [address] [place] [address] [place] WBC (Bld) [#/Vol] 7.04 10*3/uL Normal 3.70-11.00 [facility] Comment on above: Order Comment: Speci men Type: BLOOD SPECIMEN Ordering Facility: [facility] Address: [address] [place] [address] Performed By: #### 5 7021-8 #### [facility] IA [id number] [address] [place] [address] OF [facility] CONSULT PROGon 03-29-2022 CONSULT PROG HNO ID: [id number] Author: Joslyn Jain APRN.CHEMISTRY DEPARTMENT CHAIR Service: Pain Management Author Type: Nurse Practitioner [...] is on liq diet, currently on Dilaudid QUALITY ASSURANCE ASSOCIATE at 0/0.2/10/6 last 2 hours 06/27 bolus [...] No Relieved: Yes - NOW with increase QUALITY ASSURANCE ASSOCIATE and Repositioning and QUALITY ASSURANCE ASSOCIATE Is patient satisfied with pain control: Yes [...] mL PERIPHERAL NERVE CATHETER CONTINUOUS - HYDROmorphone QUALITY ASSURANCE ASSOCIATE 0.5 mg/mL in NaCl 0.9% 100 mL [...] % 69.3 (more content not included)... Normal [facility] Magnesium SerPl-mCncon 03-29 Magnesium [Mass/Vol] 1.4 mg/dL Low 1.7-2.3 [facility] Comment on above: Order Comment: Speci men Type: BLOOD SPECIMEN Ordering Facility: [facility] Address: [address] [place] [address] Performed By: #### 5 8410-2 #### [facility] CLIA [id number] [address] [place] [address] OF [facility] NURSING PROGon 03-29-2022 NURSING PROG HNO ID: [id number] Author: Dipti Crowley, MAKI Service: Nursing Author Type: Registered Nurse Type: Nursing Progress Note Filed: 03/29/2022 2:00 PM Note Text: Nursing Progress Note Patient Name: Mary Leal Patient Location: / __ Daily Note: Patient VSS. RA POx. Pain level better controlled now that QUALITY ASSURANCE ASSOCIATE initiated. B/L Ropivacaine Tap Blocks with dressings [...] staff. This note was completed by: Dipti [facility] NURSING PROG HNO ID: [id number] Author: Kev Leone RN Service: ? Author Type: Registered Nurse Type: Nursing Progress Note Filed: 03/29/2022 3:53 AM Note Text: Nursing Progress Note Patient Name: Mary Leal Patient Location: [address] __ Daily Note: 0350: Pt states she is in 10/10 pain, pt has no PO pain meds ordered, page sent to surgery resident This note was completed by: Kev Leone [facility] PT EDon 03-29-2022 PT ED HNO ID: [id number] Author: Merced Morales DTR Service: Nutrition Therapy Author Type: Green Hide Inspector Type: Patient Education Filed: 03/29/2022 11:05 AM [...] 29, 2022 TIME: 11:04 AM PAGER: Normal [facility] Phosphate SerPl-mCncon 03-29 Phosphate [Mass/Vol] 2.9 mg/dL Normal 2.7-4.8 [facility] Comment on above: Order Comment: Speci men Type: BLOOD SPECIMEN Ordering Facility: [facility] Address: [address] [place] [address] Performed By: #### 5 8410-2 #### [facility] CLIA [id number] [place] [address] OF [facility] ANES PRE-OPon 03-28-2022 ANES PRE-OP HNO ID: [id number] Author: Anibal Bertrand MD Service: Anesthesiology Author Type: Anesthesiologist Type: Anesthesia Preprocedure Evaluation Filed: 03/28/2022 8:29 AM Note Text: ANESTHESIOLOGY DAY OF SURGERY NOTE : 1970 Procedure Information Date/Time: 03/28/22829 Procedures: LAPAROSCOPIC TOTAL COLECTOMY LITHOTOMY (N/A Abdomen) LAP CLOSURE OF ENTEROSTOMY W/ RESECTION AND ANASTOMOSIS (N/A Abdomen) - ileorectal anastomosis, takedown of ileostomy Location: OR12 / [facility] OR Surgeons: Mary Obrien [...] (FLONASE) 50 mcg/actuation nasal spray Use 1 Amberg in each nostril on (more content not included)... Normal [facility] BRIEF OP NOTon 03-28-2022 BRIEF OP NOT HNO ID: [id number] Author: Nita Lamas MD Service: Colorectal Author Type: Fellow Type: Brief Op Note Filed: 03/28/2022 3:43 PM Note Text: BRIEF OPERATIVE NOTE - COLORECTAL SURGERY Log ID: [id number] Surgery/Procedure Date: 03/28/2022 Incision/Procedure Start Time: 9:47 AM Incision Close/Procedure End Time: 3:40 PM Surgeon(s) and Executive Vp(s): Surgeon(s) and Role: * Mary Obrien MD [...] DATE: March 28, 2022 TIME: 3:42 PM Normal [facility] NURSING PROGon 03-28-2022 NURSING PROG HNO ID: [id number] Author: Merced Lay RN Service: ? Author Type: Registered Nurse Type: Nursing Progress Note Filed: 03/28/2022 6:56 PM Note Text: Nursing Progress Note Patient Name: Mary Leal Patient Location: [place] [address] __ Transfer Note: Patient transferred into room/unit PK22 in stable condition. Actions taken: No futher actions taken at this time. Will continue to monitor and check with patient. Paged surgical team. Pt has TAP blocks, but orders were discontinued from PACU. New orders for blocks need to be placed in eMAR. Awaiting call back or orders. This note was completed by: Merced Lay [facility] NURSING PROG HNO ID: [id number] Author: Monica Nicole RN Service: Nursing Author Type: Registered Nurse Type: Nursing Progress Note Filed: 03/28/2022 6:35 PM Note Text: Nursing Progress Note Patient Name: Mary Leal Patient Location: [facility] OR POOL/[facility] OR POOL __ Daily Note: 0: Dr. Novak notified of patients increase in heart rate from arrival to post op. Patient HR now maintaining in the 120s. 1830: [employer] rounding at patient bedside. Dressing and abdomen assessed- drainage to be expected on island dressing. Notified him of patients HR running high and notified that patient normally takes 50mg atenolol but held today for surgery. Patient's pain managed and other VS stable at this time. [employer] is OK with patient going to regular nursing floor at this time. Family updated. This note was completed by: Monica Nicole [facility] NURSING PROG HNO ID: [id number] Author: Vianney Chacon RN Service: Nursing Author [...] (RECOMMENDATION): None Electronically Signed By: Vianney Chacon [facility] OPERATIVE NOon 03-28-2022 OPERATIVE NO HNO ID: [id number] Author: Mary Obrien MD Service: Colorectal Author Type: Physician Type: Operative Report Filed: 03/28/2022 5:06 PM Note Text: COLON AND RECTAL SURGERY OPERATIVE REPORT PATIENT NAME: Mary Leal ADMISSION DATE: 03/28/2022 LOG ID: [id number] SURGERY/PROCEDURE DATE: 03/28/2022 INCISION/PROCEDURE START TIME: 9:47 AM INCISION CLOSE/PROCEDURE END TIME: 3:40 PM AGE: [age] year old SEX: female SURGEON(S)/PROCEDURALI ST(S) AND INSULATION AND FLOORING ASSEMBLER(S): Surgeon(s) and Role: * Mary Obrien MD [...] The abdome (more content not included)... Normal [facility] SURGICAL PATHOLOGYon CASE REPORT Normal [facility] Comment on above: Order Comment: Speci men Type: BLOOD SPECIMEN Ordering Facility: [facility] Address: [address] [place] [address] Result Comment: Surg ical Pathology Report Case: [id number] Authorizing Provider: Mary Obrien MD Collected: 03/28/2022 01:43 PM Ordering Location: [facility] Received: 03/28/2022 04:10 PM Operating Room Pathologist: Alexei Rodriguez MD Specimen: COLON RESECTION, terminal ileum with ileostomy Performed By: #### 5 7021-8 #### [facility] CLIA [id number] CLINICAL HISTORY ILEORECTAL ANASTOMOSIS, TAKEDOWN OF ILEOSTOMY Normal [facility] Comment on above: Order Comment: Kaylini harrison Type: BLOOD SPECIMEN Ordering Facility: [facility] Address: [address] [place] [address] Performed By: #### 5 7021-8 #### [facility] CLIA [id number] DIAGNOSIS COMMENT The histologic findings are [...] of associated inflammation or infectious organisms. Normal [facility] Comment on above: Order Comment: Speci men Type: BLOOD SPECIMEN Ordering Facility: [facility] Address: [address] [place] [address] Performed By: #### 5 7021-8 #### [facility] CLIA [id number] [address] FINAL DIAGNOSIS [facility] Comment on above: Order Comment: Speci men Type: BLOOD SPECIMEN Ordering Facility: [facility] Address: [address] [place], [place] [id number] Result Comment: [place] n and terminal ileum with ileostomy, resection: - Colon with patchy active colitis, submucosal fibrosis, acute serositis, and fibrovascular adhesions (see comment). - Small bowel with focal transmural defect, acute serositis, fibrovascular adhesions, and changes consistent with ileostomy site. - Benign lymph nodes. JEL 03/31/2022 Performed By: #### 5 7021-8 #### [facility] CLIA [id number] [address] [place] [address] FINAL PERFORMING LAB Normal [facility] Comment on above: Order Comment: Speci men Type: BLOOD SPECIMEN Ordering Facility: [facility] Address: [address] [place] [address] Result Comment: Diag nostic interpretation performed at [facility], [address] [place] [address] CLIA# [id number] Mold Stacker: Howie Anderson M.D. Performed By: #### 5 7021-8 #### [facility] CLIA [id number] [address] [place] [address] GROSS DESCRIPTION Normal [facility] Comment on above: Order Comment: Speci harrison Type: BLOOD SPECIMEN Ordering Facility: [facility] Address: [address] [place] [address] Result Comment: A. C OLON RESECTION. Received [...] diverticula. The serosa is jaimes-pink and smooth. Manager Core sections are submitted from distal to proximal [...] 2022 9:53 AM Gross examination performed at [facility], [address] [place] [address] CLIA # [id number] Performed By: #### 5 7021-8 #### [facility] CLIA [id number] [address] [place] [address] [place] Q - CBC W/DIFF AND PLTon BASOABS 59 cells/uL Normal 0-200 [facility] Specialist Comment on above: Order Comment: [facility] performed at: [employer] [facility], [address] [place] [address], [address] [place] [address], [address] [place] [address], Mold Stacker: Gopal Hamilton MD [facility] Date/Time: [facility] Results Received Date/Time: [facility] Reported Date/Time: Performed By: #### 9 68T, 00185F, %8293, 50204O, 6399, 496X #### [facility] Default [address] [place] [address] Basophils/100 WBC (Bld) 1.0 % Normal [facility] Specialist Comment on above: Order Comment: [facility] performed at: [employer] [facility], [address] [place] [address], [address] [place] [address], [address] [place] [address], Mold Stacker: Gopal Hamilton MD [facility] Date/Time: [facility] Results Received Date/Time: [facility] Reported Date/Time: Performed By: #### 9 68T, 23021Q, %8293, 10138F, 6399, 496X #### [facility] Default [address] [place] [address] EOSABS 171 cells/uL Normal 15-500 [facility] Specialist Comment on above: Order Comment: [facility] performed at: [employer] [facility], [address] [place] [address], [address] [place] [address], [address] [place] [address], Mold Stacker: Gopal Hamilton MD [facility] Date/Time: [facility] Results Received Date/Time: [facility] Reported Date/Time: Performed By: #### 9 68T, 39298B, %8293, 33955V, 6399, 496X #### [facility] Default [address] [place] [address] Eosinophils/100 WBC (Bld) 2.9 % Normal [facility] [place] [facility] Comment on above: Order Comment: [facility] performed at: [employer] [facility], [address] [place] [address], [address] [place] [address], [address] [place] [address], Mold Stacker: Gopal Hamilton MD [facility] Date/Time: [facility] Results Received Date/Time: [facility] Reported Date/Time: Performed By: #### 9 68T, 11362F, %8293, 78319C, 6399, 496X #### [facility] Default [address] [place] [address] Erythrocyte distribution width (RBC) [Ratio] 12.9 % Normal 11.0-15.0 [facility] Comment on above: Order Comment: [facility] performed at: [employer] [facility], [address] [place] [address], [address] [place] [address], [address] [place] [address], Mold Stacker: Gopal Hamilton MD [facility] Date/Time: [facility] Results Received Date/Time: [facility] Reported Date/Time: Performed By: #### 9 68T, 02057Z, %8293, 40402N, 6399, 496X #### [facility] Default [address] [place] [address] Hematocrit (Bld) [Volume fraction] 38.1 % Normal 35.0-45.0 [facility] Comment on above: Order Comment: [facility] performed at: [employer] [facility], [address] [place] [address], [address] [place] [address], [address] [place] [address], Mold Stacker: Gopal Hamilton MD [facility] Date/Time: [facility] Results Received Date/Time: [facility] Reported Date/Time: Performed By: #### 9 68T, 91431T, %8293, 65373O, 6399, 496X #### [facility] Default [address] [place] [address] Hemoglobin (Bld) [Mass/Vol] 12.9 g/dL Normal 11.7-15.5 [facility] [employer] Comment on above: Order Comment: [facility] performed at: [employer] [facility], [address] [place] [address], [address] [place] [address], [address] [place] [address], Mold Stacker: Gopal Hamilton MD [facility] Date/Time: [facility] Results Received Date/Time: [facility] Reported Date/Time: Performed By: #### 9 68T, 38600E, %8293, 79532J, 6399, 496X #### [facility] Default [address] [place] [address] Lymphocytes (Bld) [#/Vol] 1.375 10*3/uL Normal 850-3900 [facility] [facility] Comment on above: Order Comment: [facility] performed at: [employer] [facility], [address] [place] [address], [address] [place] [address], [address] [place] [address], Mold Stacker: Gopal Hamilton MD [facility] Date/Time: [facility] Results Received Date/Time: [facility] Reported Date/Time: Performed By: #### 9 68T, 49171T, %8293, 65854G, 6399, 496X #### [facility] Default [address] [place] [address] Lymphocytes/100 WBC (Bld) 23.3 % Normal [facility] Comment on above: Order Comment: [facility] performed at: [employer] [facility], [address] [place] [address], [address] [place] [address], [address] [place] [address], Mold Stacker: Gopal Hamilton MD [facility] Date/Time: [facility] Results Received Date/Time: [facility] Reported Date/Time: Performed By: #### 9 68T, 04147Y, %8293, 02142H, 6399, 496X #### [facility] Default [address] [place] [address] MCH (RBC) [Entitic mass] 30.0 pg Normal 27.0-33.0 [facility] Specialist Comment on above: Order Comment: [facility] performed at: [employer] [facility], [facility], [address] [place] [address], [address] [place] [address], Mold Stacker: Gopal Hamilton MD [facility] Date/Time: [facility] Results Received Date/Time: [facility] Reported Date/Time: Performed By: #### 9 68T, 90238Q, %8293, 12455O, 6399, 496X #### [facility] Default [address] [place] [address] MCHC (RBC) [Mass/Vol] 33.9 g/dL Normal 32.0-36.0 [facility] Comment on above: Order Comment: [facility] performed at: [employer] [facility], [address] [place] [address], [address] [place] [address], [address] [place] [address], Mold Stacker: Gopal Hamilton MD [facility] Date/Time: [facility] Results Received Date/Time: [facility] Reported Date/Time: Performed By: #### 9 68T, 88330G, %8293, 76559T, 6399, 496X #### [facility] Default [address] [place] [address] MCV (RBC) [Entitic vol] 88.6 fL Normal 80.0-100.0 [facility] Specialist Comment on above: Order Comment: [facility] Testing performed at: [facility] [employer], 5 [facility], [address] [place] [address], [address] [place] [address], Mold Stacker: Gopal Hamilton MD Quest Collection Date/Time: [facility] Results Received Date/Time: [facility] Reported Date/Time: Performed By: #### 9 68T, 96901C, %8293, 39971V, 6399, 496X #### [facility] Default [address] [place] [address] MONOABS 460 cells/uL Normal 200-950 [facility] Specialist Comment on above: Order Comment: [facility] Testing performed at: [facility], [address] , [address] [place] [address], [address] [place] [address], Mold Stacker: Gopal Hamilton MD [facility] Collection Date/Time: [facility] Results Received Date/Time: [facility] Reported Date/Time: Performed By: #### 9 68T, 92259K, %8293, 12954H, 6399, 496X #### [facility] Default [address] [place] [address] Monocytes/100 WBC (Bld) 7.8 % Normal [facility] Comment on above: Order Comment: [facility] Testing performed at: [facility], [address] , [address] [place] [address], [address] [place] [address], Mold Stacker: Gopal Hamilton MD [facility] Collection Date/Time: [facility] Results Received Date/Time: [facility] Reported Date/Time: Performed By: #### 9 68T, 98492I, %8293, 61878R, 6399, 496X #### [facility] Default [address] [place] [address] Neutrophils (Bld) [#/Vol] 3.835 10*3/uL Normal 6063-6098 [facility] Comment on above: Order Comment: [facility] Testing performed at: [facility], [address] , [address] [place] [address], [address] [place] [address], Mold Stacker: Gopal Hamilton MD [facility] Collection Date/Time: [facility] Results Received Date/Time: [facility] Reported Date/Time: Performed By: #### 9 68T, 74870N, %8293, 39951J, 6399, 496X #### [facility] Default [address] [place] [address] Neutrophils/100 WBC (Bld) 65 % Normal [facility] Specialist Comment on above: Order Comment: [facility] Testing performed at: [facility], [address] [facility], [address] [place] [address], [address] [place] [address], Mold Stacker: Gopal Hamilton MD [facility] Collection Date/Time: [facility] Results Received Date/Time: [facility] Reported Date/Time: Performed By: #### 9 68T, 30038A, %8293, 29539E, 6399, 496X #### [facility] Default [address] [place] [address] Platelet mean volume (Bld) [Entitic vol] 9.3 fL Normal 7.5-12.5 [facility] Specialist Comment on above: Order Comment: [facility] Testing performed at: [place], 5 [facility], [address] [place] [address], [address] [place] [address], Mold Stacker: Gopal Hamilton MD [facility] Collection Date/Time: [facility] Results Received Date/Time: [facility] Reported Date/Time: Performed By: #### 9 68T, 92764D, %8293, 20866E, 6399, 496X #### [facility] Default [address] [place] [address] Platelets (Bld) [#/Vol] 409 10*3/uL High 140-400 [facility] Specialist Comment on above: Order Comment: [facility] Testing performed at: [facility], [address] , [address] [place] [address], [address] [place] [address], Mold Stacker: Gopal Hamilton MD [facility] Collection Date/Time: [facility] Results Received Date/Time: [facility] Reported Date/Time: Performed By: #### 9 68T, 08284J, %8293, 31047Z, 6399, 496X #### [facility] Default [address] [place] [address] RBC (Bld) [#/Vol] 4.30 10*6/uL Normal 3.80-5.10 aDren douglass [place] [employer] Comment on above: Order Comment: [facility] Testing performed at: [facility], [address] [place] [address], [address] [place] [address], [address] [place] [address], Mold Stacker: Gopal Hamilton MD [facility] Collection Date/Time: [facility] Results Received Date/Time: [facility] Reported Date/Time: Performed By: #### 9 68T, 85920X, %8293, 87888H, 6399, 496X #### [facility] Default [address] [place] [address] WBC (Bld) [#/Vol] 5.9 10*3/uL Normal 3.8-10.8 Jay gambino [place] [employer] Comment on above: Order Comment: [facility] Testing performed at: [facility], [address] [place] [address], [address] [place] [address], [address] [place] [address], Mold Stacker: Gopal Hamilton MD [facility] Collection Date/Time: [facility] Results Received Date/Time: [facility] Reported Date/Time: Performed By: #### 9 68T, 30643H, %8293, 20647V, 6399, 496X #### [facility] Default [address] [place] [address] Q - COMPREHENSIVE METABOLIC PANEL W/EGFRon 03-10-2022 Albumin [Mass/Vol] 4.3 g/dL Normal 3.6-5.1 Jay gambino [place] [employer] Comment on above: Order Comment: [facility] Testing performed at: [facility], [address] [place] [address], [address] [place] [address], [address] [place] [address], Mold Stacker: Gopal Hamilton MD [facility] Collection Date/Time: [facility] Results Received Date/Time: [facility] Reported Date/Time: Performed By: #### 9 68T, 39163W, %8293, 77520E, 6399, 496X #### [facility] Default [address] [place] [address] Albumin/Globulin [Mass ratio] 1.7 {ratio} Normal 1.0-2.5 [facility] Specialist Comment on above: Order Comment: [facility] Testing performed at: [facility], [address] [place] [address], [address] [place] [address], [address] [place] [address], Mold Stacker: Gopal Hamilton MD [facility] Collection Date/Time: [facility] Results Received Date/Time: [facility] Reported Date/Time: Performed By: #### 9 68T, 58236N, %8293, 17237N, 6399, 496X #### [facility] Default [address] [place] [address] ALP [Catalytic activity/Vol] 134 U/L High 31-125 [facility] Talent Associate Comment on above: Order Comment: [facility] Testing performed at: [facility], [address] [place] [address], [address] [place] [address], [address] [place] [address], Mold Stacker: Gopal Hamilton MD [facility] Collection Date/Time: [facility] Results Received Date/Time: [facility] Reported Date/Time: Performed By: #### 9 68T, 12906A, %8293, 28369E, 6399, 496X #### [facility] Default [address] [place] [address] ALT [Catalytic activity/Vol] 41 U/L High 6-29 [facility] Talent Associate Comment on above: Order Comment: [facility] Testing performed at: [facility], [address] [place] [address], [address] [place] [address], [address] [place] [address], Mold Stacker: Gopal Hamilton MD [facility] Collection Date/Time: [facility] Results Received Date/Time: [facility] Reported Date/Time: Performed By: #### 9 68T, 51855X, %8293, 52346E, 6399, 496X #### [facility] Default [address] [place] [address] AST [Catalytic activity/Vol] 33 U/L Normal 10-35 [facility] Comment on above: Order Comment: [facility] Testing performed at: [place], [address] [facility], [address] [place] [address], [address] [place] [address], Mold Stacker: Gopal Hamilton MD [facility] Collection Date/Time: [facility] Results Received Date/Time: [facility] Reported Date/Time: Performed By: #### 9 68T, 59555C, %8293, 01447P, 6399, 496X #### [facility] Default [address] [place] [address] BUN/CREA 17 NOT APPLICABLE Normal 6-22 [facility] Comment on above: Order Comment: [facility] Testing performed at: [facility], [address] , [address] [place] [address], [address] [place] [address], Mold Stacker: Gopal Hamilton MD [facility] Collection Date/Time: [facility] Results Received Date/Time: [facility] Reported Date/Time: Performed By: #### 9 68T, 38264F, %8293, 62159N, 6399, 496X #### [facility] Default [address] [place] [address] Calcium [Mass/Vol] 9.6 mg/dL Normal 8.6-10.2 [facility] Comment on above: Order Comment: [facility] Testing performed at: [facility], [address] , [address] [place] [address], [address] [place] [address], Mold Stacker: Gopal Hamilton MD [facility] Collection Date/Time: [facility] Results Received Date/Time: [facility] Reported Date/Time: Performed By: #### 9 68T, 63005G, %8293, 92460H, 6399, 496X #### [facility] Default [address] [place] [address] Chloride [Moles/Vol] 103 mmol/L Normal 98-110 [facility] Comment on above: Order Comment: [facility] Testing performed at: [facility], [address] , [address] [place] [address], [address] [place] [address], Mold Stacker: Gopal Hamilton MD [facility] Collection Date/Time: [facility] Results Received Date/Time: [facility] Reported Date/Time: Performed By: #### 9 68T, 89186C, %8293, 52648A, 6399, 496X #### [facility] Default [address] [place] [address] CO2 [Moles/Vol] 27 mmol/L Normal 20-32 [facility] Comment on above: Order Comment: [facility] Testing performed at: [facility], [address] , [address] [place] [address], [address] [place] [address], Mold Stacker: Gopal Hamilton MD [facility] Collection Date/Time: [facility] Results Received Date/Time: [facility] Reported Date/Time: Performed By: #### 9 68T, 69490Y, %8293, 71552F, 6399, 496X #### [facility] Default [address] [place] [address] Creatinine [Mass/Vol] 0.65 mg/dL Normal 0.50-1.10 [facility] Comment on above: Order Comment: [facility] Testing performed at: [facility], [address] , [address] [place] [address], [address] [place] [address], Mold Stacker: Gopal Hamilton MD [facility] Collection Date/Time: [facility] Results Received Date/Time: [facility] Reported Date/Time: [id number] Performed By: #### 9 68T, 94409I, %8293, 35121F, 6399, 496X #### [facility] Default [address] [place] [address] eGFRAA (Quest) 121 mL/min/1.73m2 Normal > OR = 60 [facility] Comment on above: Order Comment: [facility] Testing performed at: [facility], [address] [facility], [address] [place] [address], [address] [place] [address], Mold Stacker: Gopal Hamilton MD [facility] Collection Date/Time: [facility] Results Received Date/Time: [facility] Reported Date/Time: Performed By: #### 9 68T, 86543B, %8293, 28244X, 6399, 496X #### [facility] Default [address] [place] [address] eGFRNAA (Quest) 104 mL/min/1.73m2 Normal > OR = 60 [facility] Comment on above: Order Comment: [facility] Testing performed at: [facility], [address] [place] [address], [address] [place] [address], [address] [place] [address], Mold Stacker: Gopal Hamilton MD [facility] Collection Date/Time: [facility] Results Received Date/Time: [facility] Reported Date/Time: Performed By: #### 9 68T, 50224J, %8293, 54901Z, 6399, 496X #### [facility] Default [address] [place] [address] Globulin (S) [Mass/Vol] 2.5 g/dL Normal 1.9-3.7 [facility] Talent Associate Comment on above: Order Comment: [facility] Testing performed at: [facility], [address] [facility], [address] [place] [address], [address] [place] [address], Mold Stacker: Gopal Hamilton MD [facility] Collection Date/Time: [facility] Results Received Date/Time: [facility] Reported Date/Time: Performed By: #### 9 68T, 06327A, %8293, 86371Z, 6399, 496X #### [facility] Default [address] [place] [address] Glucose [Mass/Vol] 94 mg/dL Normal 65-99 Jay gambino [place] [employer] Comment on above: Order Comment: [facility] Testing performed at: [facility], [address] [place] [address], [address] [place] [address], [address] [place] [address], Mold Stacker: Gopal Hamilton MD [facility] Collection Date/Time: [facility] Results Received Date/Time: [facility] Reported Date/Time: Result Comment: Fasting reference interval Performed By: #### 9 68T, 04258Y, %8293, 56850O, 6399, 496X #### [facility] Default [address] [place] [address] Potassium [Moles/Vol] 4.4 mmol/L Normal 3.5-5.3 Venita larson [place] [employer] Comment on above: Order Comment: [facility] Testing performed at: [facility], [address] [place] [address], [address] [place] [address], [address] [place] [address], Mold Stacker: Gopal Hamilton MD [facility] Collection Date/Time: [facility] Results Received Date/Time: [facility] Reported Date/Time: Performed By: #### 9 68T, 32510Q, %8293, 36030P, 6399, 496X #### [facility] Default [address] [place] [address] Protein [Mass/Vol] 6.8 g/dL Normal 6.1-8.1 Jay gambino [place] [employer] Comment on above: Order Comment: [facility] Testing performed at: [facility], [address] [place] [address], [address] [place] [address], [address] [place] [address], Mold Stacker: Gopal Hamilton MD [facility] Collection Date/Time: [facility] Results Received Date/Time: [facility] Reported Date/Time: Performed By: #### 9 68T, 45060K, %8293, 23022M, 6399, 496X #### [facility] Default [address] [place] [address] Sodium [Moles/Vol] 138 mmol/L Normal 135-146 [facility] Comment on above: Order Comment: [facility] Testing performed at: [facility], 5 [facility], [address] [place] [address], [address] [place] [address], Mold Stacker: Gopal Hamilton MD [facility] Collection Date/Time: [facility] Results Received Date/Time: [facility] Reported Date/Time: Performed By: #### 9 68T, 74138E, %8293, 94837I, 6399, 496X #### [facility] Default [address] [place] [address] TBIL <0.3 Normal 0.2-1.2 [facility] Specialist Comment on above: Order Comment: [facility] Testing performed at: [facility], [address] [place] [address], [address] [place] [address], [address] [place] [address], Mold Stacker: Gopal Hamilton MD [facility] Collection Date/Time: [facility] Results Received Date/Time: [facility] Reported Date/Time: Performed By: #### 9 68T, 79629W, %8293, 46049Y, 6399, 496X #### [facility] Default [address] [place] [address] Urea nitrogen [Mass/Vol] 11 mg/dL Normal 7-25 [facility] Talent Associate Comment on above: Order Comment: [facility] Testing performed at: [facility], [address] [place] [address], [address] [place] [address], [address] [place] [address], Mold Stacker: Gopal Hamilton MD [facility] Collection Date/Time: [facility] Results Received Date/Time: [facility] Reported Date/Time: Performed By: #### 9 68T, 86073I, %8293, 98980L, 6399, 496X #### [facility] Default [address] [place] [address] Q - DLDL REFLEXon 03-10-2022 Cholesterol in LDL [Mass/Vol] 87 mg/dL Normal <100 [facility] Talent Associate Comment on above: Order Comment: [facility] Testing performed at: [facility], 5 [facility], [address] [place] [address], [phone], Mold Stacker: Gopal Hamilton MD [facility] Collection Date/Time: [facility] Results Received Date/Time: [facility] Reported Date/Time: Result Comment: Desirable range <100 mg/dL for primary prevention; <70 mg/dL for patients with CHD or diabetic patients with > or = 2 CHD risk factors. Performed By: #### 9 68T, 59140A, %8293, 52037O, 6399, 496X #### [facility] Default [address] [place] [address] Q - HEMOGLOBIN A1Con 022 HEMOGLOBIN A1c 5.0 % of total Hgb Normal <5.7 No rthern [place] [employer] Comment on above: Order Comment: [facility] Testing performed at: [employer] [facility], [address] [place] [address], [address] [place] [address], [phone], Mold Stacker: Gopal Hamilton MD [facility] Collection Date/Time: [facility] [...] diagnosis of diabetes in children. According to [place] [employer] (ADA) guidelines, hemoglobin A1c <7.0% represents optimal control in non- diabetic patients. Different metrics may apply to specific patient populations. Standards of Medical Care in Diabetes(ADA). Performed By: #### 9 68T, 19158W, %8293, 30059O, 6399, 496X #### [facility] Default [address] [place] [address] Q - Lipid Panelon 03-10-2022 Cholesterol [Mass/Vol] 230 mg/dL High <200 [place] [employer] Comment on above: Order Comment: [facility] Testing performed at: [facility], [address] [place] [address], [address] [place] [address], [address] [place] [address], Mold Stacker: Gopal Hamilton MD [facility] Collection Date/Time: [facility] Results Received Date/Time: [facility] Reported Date/Time: Performed By: #### 9 68T, 17283R, %8293, 42541T, 6399, 496X #### [facility] Default [address] [place] [address] Cholesterol in HDL [Mass/Vol] 52 mg/dL Normal > OR = 50 [place] [employer] Comment on above: Order Comment: [facility] Testing performed at: [facility], [address] [place] [address], [address] [place] [address], [address] [place] [address], Mold Stacker: Gopal Hamilton MD [facility] Collection Date/Time: [facility] Results Received Date/Time: [facility] Reported Date/Time: Performed By: #### 9 68T, 44753J, %8293, 31973Q, 6399, 496X #### [facility] Default [address] [place] [address] Cholesterol.total/Cho lesterol in HDL [Mass ratio] 4.4 {ratio} Normal <5.0 [place] [employer] Comment on above: Order Comment: [facility] Testing performed at: [facility], [address] [place] [address], [address] [place] [address], [address] [place] [address], Mold Stacker: Gopal Hamilton MD [facility] Collection Date/Time: [id number] [facility] Results Received Date/Time: [facility] Reported Date/Time: Performed By: #### 9 68T, 99016X, %8293, 64916N, 6399, 496X #### [facility] Default [address] [place] [address] LDLD SEE NOTE Normal [facility] Talent Associate Comment on above: Order Comment: [facility] Testing performed at: [employer] [facility], [address] [facility], [address] [place] [address], [phone], Mold Stacker: Gopal Hamilton MD [facility] Collection Date/Time: [facility] [...] LDL-C. Estevan SS et al. ZANA. 2013;310(19): 1820-1583 (http://education.[employer]/faq/UER861) Performed By: #### 9 68T, 88719I, %8293, 63834O, 6399, 496X #### [facility] Default [address] [place] [address] NON HDL CHOLESTEROL 178 mg/dL (calc) High <130 [facility] Talent Associate Comment on above: Order Comment: [facility] Testing performed at: [employer] [facility], [address] , [address] [place] [address], [address], Mold Stacker: Gopal Hamilton MD [facility] Collection Date/Time: [id number] [facility] Results Received Date/Time: [facility] Reported Date/Time: Result Comment: For patients with diabetes plus 1 major ASCVD risk factor, treating to a non-HDL-C goal of <100 mg/dL (LDL-C of <70 mg/dL) is considered a therapeutic option. Performed By: #### 9 68T, 98754T, %8293, 75601I, 6399, 496X #### [facility] Default [address] [place] [address] Triglyceride [Mass/Vol] 410 mg/dL High <150 [facility] Specialist Comment on above: Order Comment: [facility] Testing performed at: [facility], [address] [facility], [address] [place] [address], [phone], Mold Stacker: Gopal Hamilton MD [facility] Collection Date/Time: [facility] Results Received Date/Time: [facility] Reported Date/Time: Result Comment: If a non-fasting specimen was collected, consider repeat triglyceride testing on a fasting specimen if clinically indicated. João et al. J. of Clin. Lipidol. 2015;9:129-169. Performed By: #### 9 68T, 57435B, %8293, 20529E, 6399, 496X #### [facility] Default [address] [place] [address] Q - TROPONIN Ion 03-10-2022 TROPONIN I 3 ng/L Normal < OR = 47 [facility] Specialist Comment on above: Order Comment: [facility] Testing performed at: [facility], [address] [facility], [address] [place] [address], [address], Mold Stacker: Gopal Hamilton MD [facility] Collection Date/Time: [id number] [facility] Results Received Date/Time: [facility] Reported Date/Time: Result Comment: In accord with published recommendations, serial testing of troponin I at intervals of 2 to 4 hours for up to 12 to 24 hours is suggested in order to corroborate a single troponin I result. An elevated troponin alone is not sufficient to make the diagnosis of [place]. Performed By: #### 9 68T, 70351I, %8293, 18912O, 6399, 496X #### [facility] Default [address] [place] [address] UA DIP, URINE (POC)on 2021 BILIRUBIN UA (POCT) Negative Negative [facility] CLARITY UA (POCT) Clear [facility] COLOR UA (POCT) Yellow [facility] GLUCOSE UA (POCT) Negative Negative mg/dL [facility] HEMOGLOBIN/BLOOD UA (POCT) Negative Negative [facility] KETONE UA (POCT) Negative Negative mg/dL [facility] LEUKOCYTES UA (POCT) Negative Negative [facility] NITRITE UA (POCT) Negative Negative [facility] PH UA (POCT) 5.0 4.5 - 8.0 [facility] Protein Ql (U) Trace Abnormal Negative mg/dL [facility] SPECIFIC GRAVITY UA (POCT) >=1.030 1.005 - 1.030 [facility] UROBILINOGEN UA (POCT) 0.2 E.U./dL Normal E.U./dL [facility] CNTHERAPYon 01-31-2022 CNTHERAPY OT/PT/Speech Visit (PTLHO) MARY LEAL ([id number]) 1970 F Date Time Provider Department 01/31/22 10:30 AM [facility] Date Time Provider Department Center 01/31/2022 10:30 AM [id number], JILL PTSAVANNAH [facility] Reason for Visit: Physical Therapy [503] Primary [...] (FLONASE) 50 mcg/actuation nasal spray Use 1 Amberg in each nostril once daily. - carBAMazepine [...] mg by mouth once daily. [facility] CNTHERAPYon 01-24-2022 CNTHERAPY OT/PT/Speech Visit (PTLHO) MARY LEAL ([id number]) 1970 F Date Time Provider Department 01/24/22 10:30 AM [facility] Date Time Provider Department [place] 01/24/2022 10:30 AM [id number], JILL KALEIGH [facility] Reason for Visit: Physical Therapy [503] Primary [...] (FLONASE) 50 mcg/actuation nasal spray Use 1 Amberg in each nostril once daily. - carBAMazepine [...] mg by mouth once daily. [facility] CNTHERAPYon 01-18-2022 CNTHERAPY OT/PT/Speech Visit (PTLHO) MARY LEAL ([id number]) 1970 F Date Time Provider Department 01/18/22 12:15 PM JESSI ISAACS PTSAVANNAH Date Time Provider Department [place] 01/18/2022 12:15 PM [id number], KATHRYN PTSAVANNAH [facility] Reason for Visit: PT Eval [747] Primary [...] (FLONASE) 50 mcg/actuation nasal spray Use 1 Amberg in each nostril once daily. - carBAMazepine [...] mg by mouth once daily. [facility] HNO ID: [id number] Author: Sonido Owen MD Service: Colorectal Author [...] the PACU and was transferred to the [facility]. Postoperatively, the patient recovered well. Her [...] mg Finesse (more content not included)... Normal [facility] CONSULTon 12-27-2021 CONSULT HNO ID: [id number] Author: Dai Hines RN Service: Wound/Ostomy Author Type: Registered Nurse Type: Consults Filed: 12/27/2021 3:32 PM Note Text: [facility] POST-OPERATIVE ASSESSMENT AND PATIENT EDUCATION Patient Name: Mary Leal Date: December 27, 2021 Time: 3:20 PM ET Care Outcome: Ms. Leal was seen today on the [facility] for ostomy education and a pouch change lesson. ET's Next Scheduled Visit: Complete. STOMA ASSESSMENT Stoma type: Loop ileostomy Diameter: 35 mm with and extra 1 mm cut on the medial side of the pouch. Location: RLQ Protrusion: Budded, Os points downward Mucosal condition and color: Red and Dooling and moist. Boni: No Mucocutaneous Junction: Intact [...] one piece cut to fit drainable pouch (#[id number]) and Coloplast Brava moldable ring (2mm) #[id number]. Brava barrier strips, product # [id number] applied around the border of the pouch. INCISION Degree of approximation: 100% Approximating devices: Surgical Glue Drainage: None Method of Management: FOOD BEVERAGE ATTENDANT Time Increment: 45 minutes Comments: NA Supplies [...] THE CHART OR MODIFY PRINTED COPY. Normal [facility] NURSING PROGon 12-27-2021 NURSING PROG HNO ID: [id number] Author: Marizol Hankins RN Service: ? Author Type: Registered Nurse Type: Nursing Progress Note Filed: 12/27/2021 4:39 PM Note Text: Nursing Progress Note Patient Name: Mary Leal Patient Location: [place] [address] [address] __ Daily Note: Pt AANDO x 3. Lap site FOOD BEVERAGE ATTENDANT with glue, no drainage. Pt on GI [...] This note was completed by: Marizol Hankins [facility] NUTRITIONon 12-27-2021 NUTRITION HNO ID: [id number] Author: Merced Morales DTR Service: Nutrition Therapy Author Type: Green Hide Inspector Type: Nutrition Filed: 12/27/2021 12:16 PM Note Text: NUTRITION THERAPY COMPUTER SALESPERSON RETAIL NOTE SERVICE DATE: 12/27/2021 SERVICE TIME: 10:00 [...] DATE: December 27, 2021 TIME: 12:15 PM [facility] PT EDon 12-27-2021 PT ED HNO ID: [id number] Author: Merced Morales DTR Service: Nutrition Therapy Author Type: Green Hide Inspector Type: Patient Education Filed: 12/27/2021 12:16 PM [...] 27, 2021 TIME: 12:16 PM PAGER: Normal [facility] Basic Metabolic Panlon 12-26 Anion gap [Moles/Vol] 9 mmol/L Normal 9-18 [facility] Comment on above: Performed By: #### B MP #### [place] [phone] Calcium [Mass/Vol] 8.5 mg/dL Normal 8.5-10.5 [facility] Comment on above: Performed By: #### B MP #### [place] [phone] Chloride [Moles/Vol] 102 mmol/L Normal 98-110 [facility] Comment on above: Performed By: #### B MP #### [place] [phone] CO2 [Moles/Vol] 28 mmol/L Normal 23-32 [facility] Comment on above: Performed By: #### B MP #### [phone] Creatinine [Mass/Vol] 0.62 mg/dL Low 0.70-1.40 [facility] Comment on above: Performed By: #### B MP #### [phone] eGFR- Amer. >60 Normal >59 [facility] Comment on above: Performed By: #### B MP #### [place] [phone] eGFR-All Other Races >60 Normal >59 [facility] Comment on above: Result Comment: [...] By: #### B MP #### [place] [phone] Glucose [Mass/Vol] 71 mg/dL Normal 65-100 [facility] Comment on above: Performed By: #### B MP #### [place] [phone] Potassium [Moles/Vol] 4.0 mmol/L Normal 3.5-5.0 [facility] Comment on above: Performed By: #### B MP #### [place] [phone] Sodium [Moles/Vol] 139 mmol/L Normal 132-148 [facility] Comment on above: Performed By: #### B MP #### [place] [phone] Urea nitrogen [Mass/Vol] 10 mg/dL Normal 8-25 [facility] Comment on above: Performed By: #### B MP #### [facility] [address] [place] [address] NURSING PROGon 12-26-2021 NURSING PROG HNO ID: [id number] Author: Dipti Crowley RN Service: Nursing Author Type: Registered Nurse Type: Nursing Progress Note Filed: 12/26/2021 5:25 PM Note Text: Nursing Progress Note Patient Name: Mary Leal Patient Location: [place] [address] __ Daily Note: Call discontinued as directed in orders. 700cc output from call. 250cc NS instilled and then call catheter removed. Patient assisted to C and voided 200cc pink tinged urine. Patient assisted back to bed, not wanting to go to chair. Call light in reach. This note was completed by: Dipti Crowley [facility] NURSING PROG HNO ID: [id number] Author: Dipti Crowley RN Service: Nursing Author Type: Registered Nurse Type: Nursing Progress Note Filed: 12/26/2021 3:51 PM Note Text: Nursing Progress Note Patient Name: Mary Leal Patient Location: [place] [address] __ Daily Note: Patient AANDOx3. VSS. 2L NC POx. IVF infusing as ordered. Dilaudid QUALITY ASSURANCE ASSOCIATE, OXY IR on for pain. Patient drowsy yet easily arousable. Lap sites and transverse incision ELENI with glue. Ileostomy draining liquid brown. Call draining clear yellow. PAS on. No edema. Fa,saman at bed side. Call light in reach. This note was completed by: Dipti Crowley Normal [facility] Basic Metabolic Panlon 12-25 Anion gap [Moles/Vol] 9 mmol/L Normal 9-18 [facility] Comment on above: Performed By: #### B MP #### [place] [phone] Calcium [Mass/Vol] 8.5 mg/dL Normal 8.5-10.5 [facility] Comment on above: Performed By: #### B MP #### [place] [phone] Chloride [Moles/Vol] 104 mmol/L Normal 98-110 [facility] Comment on above: Performed By: #### B MP #### [place] [phone] CO2 [Moles/Vol] 28 mmol/L Normal 23-32 [facility] Comment on above: Performed By: #### B MP #### [place] [phone] Creatinine [Mass/Vol] 0.72 mg/dL Normal 0.70-1.40 [facility] Comment on above: Performed By: #### B MP #### [place] [phone] eGFR- Amer. >60 Normal >59 [facility] Comment on above: Performed By: #### B MP #### [place] [phone] eGFR-All Other Races >60 Normal >59 [facility] Comment on above: Result Comment: [...] By: #### B MP #### [place] [phone] Glucose [Mass/Vol] 91 mg/dL Normal 65-100 [facility] Comment on above: Performed By: #### B MP #### [place] [phone] Potassium [Moles/Vol] 4.0 mmol/L Normal 3.5-5.0 [facility] Comment on above: Performed By: #### B MP #### [phone] Sodium [Moles/Vol] 141 mmol/L Normal 132-148 [facility] Comment on above: Performed By: #### B MP #### [place] [phone] Urea nitrogen [Mass/Vol] 12 mg/dL Normal 8-25 [facility] Comment on above: Performed By: #### B MP #### [place] [phone] CASE MGT INIT ASSESon 2021 CASE MGT INIT ASSES HNO ID: [id number] Author: TITO Whitt Service: ? Author Type: Environmental Protection Geologist Type: Care Mgt Initial Assessment Filed: 12/25/2021 11:43 AM Note Text: CARE MANAGEMENT: ASSESSMENT AND DISCHARGE PLAN SERVICE DATE: December 25, 2021 SERVICE TIME: 11:39 AM PRIMARY CARE PHYSICIAN: Eliceo Gómez DO ADMISSION STATUS: Inpatient Needs Prior to Discharge: Facility or Agency Choices;Home Care Order MEDICAL: [employer]VANTAGE MEDICAID Patient/Manager Core Stated Goals: To have reduction in symptoms Health Insurance: [place] [employer] Issues Impacting Discharge Plan: None Last Discharge Date: 10/14/20 Is this Within the Past 30 days? Last discharge within 30 days: No Advance Directive: Current Advance Directive: Health Care Power of Heater Helper In Chart: No Health LiteracyHow often [...] Completely I feel financially burdened by my efj-jb-[id number] expenses for my prescription medication:: 0 - Disagree Completely Risk Score: 0 Patient is categorized as: Low risk < 2 Are you interested in bedside delivery of your medications? Yes Is Patient Psychosocially Complex?: No ASSESSMENT AND PLAN: Medical Needs: Medical Needs: None Psychosocial Needs: Psychosocial Needs: None FREEDOM OF CHOICE EXPLAINED: Piru of Choice Given: Yes Level of Care Discussed: Home Care Financial Disclosure Provided: Yes Financial Disclosure Comments: careport Provider List: Home Care Provider list within the patient's requested geographic area shared with the patient/family: Yes within: 15 miles of zip code: [address] Quality and resource use metrics shared with [...] bedside with pt during assessment. Charo Obando [phone]. Home care referrals sent. Daughter to transport at time of discharge. SIGNATURE: TITO Whitt PATIENT NAME: Mary Leal DATE: December 25, 2021 TIME: 11:39 AM PAGER/CONTACT #: [phone] Normal [facility] CBC and Differentialon 12-25 Abs Baso 0.03 k/uL Normal <0.11 [facility] Comment on above: Performed By: #### 5 7021-8 #### [facility] CLIA [id number] [address] [place] [address] [place] Abs Platte 0.45 k/uL Normal <0.87 [facility] Comment on above: Performed By: #### 5 7021-8 #### [facility] CLIA [id number] [address] [place] [address] [place] Abs Neut 3.85 k/uL Normal 1.45-7.50 [facility] Comment on above: Performed By: #### 5 7021-8 #### [facility] CLIA [id number] [address] [place] [address] [place] Absolute nRBC <0.01 Normal <0.01 [facility] Comment on above: Performed By: #### 5 7021-8 #### [facility] CLIA [id number] [address] [place] [address] [place] Basophils/100 WBC (Bld) 0.5 % Normal [facility] Comment on above: Performed By: #### 5 7021-8 #### [facility] CLIA [id number] [address] [place] [address] [place] DTYPE Auto Diff Normal [facility] Comment on above: Performed By: #### 5 7021-8 #### [facility] CLIA [id number] [address] [place] [address] [place] Eosinophils (Bld) [#/Vol] 0.14 10*3/uL Normal <0.46 [facility] Comment on above: Performed By: #### 5 7021-8 #### [facility] CLIA [id number] [address] [place] [address] [place] Eosinophils/100 WBC (Bld) 2.3 % Normal [facility] Comment on above: Performed By: #### 5 7021-8 #### [facility] CLIA [id number] [address] [place] [address] [place] Erythrocyte distribution width (RBC) [Ratio] 11.6 % Normal 11.5-15.0 [facility] Comment on above: Performed By: #### 5 7021-8 #### [facility] CLIA [id number] [address] [place] [address] [place] Hematocrit (Bld) [Volume fraction] 35.2 % Low 36.0-46.0 [facility] Comment on above: Performed By: #### 5 7021-8 #### [facility] CLIA [id number] [address] [place] [address] [place] Hemoglobin (Bld) [Mass/Vol] 11.6 g/dL Normal 11.5-15.5 [facility] Comment on above: Performed By: #### 5 7021-8 #### [facility] CLIA [id number] [address] [place] [address] [place] Lymphocytes (Bld) [#/Vol] 1.47 10*3/uL Normal 1.00-4.00 [facility] Comment on above: Performed By: #### 5 7021-8 #### [facility] CLIA [id number] [address] [place] [address] [place] Lymphocytes/100 WBC (Bld) 24.7 % Normal [facility] Comment on above: Performed By: #### 5 7021-8 #### [facility] CLIA [id number] [address] [place] [address] [place] MCH 29.5 pG Normal 26.0-34.0 [facility] Comment on above: Performed By: #### 5 7021-8 #### [facility] CLIA [id number] [address] [place] [address] [place] MCHC (RBC) [Mass/Vol] 33.0 g/dL Normal 30.5-36.0 [facility] Comment on above: Performed By: #### 5 7021-8 #### [facility] CLIA [id number] [address] [place] [address] [place] MCV (RBC) [Entitic vol] 89.6 fL Normal 80.0-100.0 [facility] Comment on above: Performed By: #### 5 7021-8 #### [facility] CLIA [id number] [address] [place] [address] [place] Monocytes/100 WBC (Bld) 7.6 % Normal [facility] Comment on above: Performed By: #### 5 7021-8 #### [facility] CLIA [id number] [address] [place] [address] [place] Neutrophils/100 WBC (Bld) 64.9 % Normal [facility] Comment on above: Performed By: #### 5 7021-8 #### [facility] CLIA [id number] [address] [place] [address] [place] NRBCs 0.0 /100 WBC Normal 0 [facility] Comment on above: Performed By: #### 5 7021-8 #### [facility] CLIA [id number] [address] [place] [address] [place] Platelet mean volume (Bld) [Entitic vol] 9.0 fL Normal 9.0-12.7 [facility] Comment on above: Performed By: #### 5 7021-8 #### [facility] CLIA [id number] [address] [place] [address] [place] Platelets (Bld) [#/Vol] 271 10*3/uL Normal 150-400 [facility] Comment on above: Performed By: #### 5 7021-8 #### [facility] CLIA [id number] [place] [address] [place] RBC (Bld) [#/Vol] 3.93 10*6/uL Normal 3.90-5.20 [facility] Comment on above: Performed By: #### 5 7021-8 #### [facility] CLIA [id number] [address] [place] [address] [place] WBC (Bld) [#/Vol] 5.96 10*3/uL Normal 3.70-11.00 [facility] Comment on above: Performed By: #### 5 7021-8 #### [facility] CLIA [id number] [address] [place] [address] CONSULTon 12-25-2021 CONSULT HNO ID: [id number] Author: Tri Kowalski APRN.CHEMISTRY DEPARTMENT CHAIR Service: Wound/Ostomy Author Type: Nurse Practitioner Type: Consults Filed: 12/25/2021 11:37 AM Note Text: OSTOMY SERVICE CONSULT SWAMPER SERVICE DATE: 12/25/2021 SERVICE TIME: 1015 Consultation [...] mL 20 mEq INTRAVENOUS PRN - HYDROmorphone QUALITY ASSURANCE ASSOCIATE 0.5 mg/mL in NaCl 0.9% 100 mL [...] with h (more content not included)... Normal [facility] NURSING PROGon 12-25-2021 NURSING PROG HNO ID: [id number] Author: Marilyn Henning RN Service: ? Author Type: Registered Nurse Type: Nursing Progress Note Filed: 12/25/2021 7:01 PM Note Text: Nursing Progress Note Patient Name: Mary Leal Patient Location: __ Daily Note: 0930 Pt AANDOx3. Lap sites intact. ABD tender. QUALITY ASSURANCE ASSOCIATE pump running. Stoma beefy red, dark brown liquid output. Pt stated that the eye pressure felt overnite has resolved. Call remains in place until OBGYN sees pt 12/26. Pt requesting PO pain medication. 1100 Pt up to chair. [address] Ontiveros bedside. 5mg oxy ordered q4 PRN. This note was completed by: Marilyn Henning [facility] NURSING PROG HNO ID: [id number] Author: Beto Ford, MAKI Service: ? Author Type: Registered Nurse Type: Nursing Progress Note Filed: 12/25/2021 6:12 AM Note Text: Nursing Progress Note Patient Name: Mary Leal Patient Location: __ Daily Note: Pt has been complaining [...] This note was completed by: Beto Ford [facility] ANES POSTPROC EVALon 022 ANES POSTPROC EVAL HNO ID: [id number] Author: Charisse Aggarwal MD Service: Anesthesiology Author [...] SIGNATURE: Charisse Aggarwal MD PATIENT NAME: Mary Zoya Leal DATE: December 24, 2021 TIME: 4:17 PM CSN: [id number] [facility] ANES PRE-OPon 12-24-2021 ANES PRE-OP HNO ID: [id number] Author: Chayito Ojeda MD Service: Anesthesiology Author [...] December 24, 2021 TIME: 7:27 AM CSN: [id number] [facility] BRIEF OP NOTon 12-24-2021 BRIEF OP NOT HNO ID: [id number] Author: Jenifer Ayala MD Service: Colorectal Author Type: Fellow Type: Brief Op Note Filed: 12/24/2021 12:16 PM Note Text: BRIEF OPERATIVE NOTE - COLORECTAL SURGERY Log ID: [id number] Surgery/Procedure Date: 12/24/2021 Incision/Procedure Start Time: 8:50 AM Incision Close/Procedure End Time: Surgeon(s) and Executive Vp(s): Surgeon(s) and Role: Panel 1: * Mary [...] DATE: December 24, 2021 TIME: 12:10 PM [facility] NURSING PROGon 12-24-2021 NURSING PROG HNO ID: [id number] Author: Marilyn Henning RN Service: ? Author Type: Registered Nurse Type: Nursing Progress Note Filed: 12/24/2021 6:36 PM Note Text: Nursing Progress Note Patient Name: Mary Leal Patient Location: [place] [address] [address] __ Daily Note: 1816 Pt arrived on floor with 100.2F temperature. Scheduled tylenol administered. Temperature 98.6 at 1816. Surgical incisions ELENI with glue, intact. Ostomy beefy red, producing sweat. Call remains in place. 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 Daughter bedside. Bed low and locked. This note was completed by: Marilyn Henning [facility] NURSING PROG HNO ID: [id number] Author: Marilyn Henning RN Service: ? Author Type: Registered Nurse Type: Nursing Progress Note Filed: 12/24/2021 4:19 PM Note Text: Nursing Progress Note Patient Name: Mary Leal Patient Location: [place] [address]/-KA4M-43 __ Transfer Note: Patient transferred into room/unit PK3-33 in stable condition. Actions taken: No futher actions taken at this time. Will continue to monitor and check with patient. This note was completed by: Marilyn Henning [facility] NURSING PROG HNO ID: [id number] Author: Dianelys Lopez RN Service: Nursing Author [...] (RECOMMENDATION): None Electronically Signed By: Dianelys Lopez [facility] OPERATIVE NOon 12-24-2021 OPERATIVE NO HNO ID: [id number] Author: Mary Obrien MD Service: Colorectal Author Type: Physician Type: Operative Report Filed: 12/24/2021 12:34 PM Note Text: COLON AND RECTAL SURGERY OPERATIVE REPORT PATIENT NAME: Mary Leal ADMISSION DATE: 12/24/2021 LOG ID: [id number] SURGERY/PROCEDURE DATE: 12/24/2021 INCISION/PROCEDURE START TIME: 8:50 AM INCISION CLOSE/PROCEDURE END TIME: AGE: [age] year old SEX: female SURGEON(S)/PROCEDURALI ST(S) AND INSULATION AND FLOORING ASSEMBLER(S): Surgeon(s) and Role: Panel 1: * Mary [...] port site. This was ligated with a ubcsng-xp-mbexw Vicryl suture and was confirmed to be [...] above. Mary Obrien, (more content not included)... [facility] OPERATIVE NO HNO ID: [id number] Author: Pam Wang MD Service: Urogynecology Author Type: Physician Type: Operative Report Filed: 12/28/2021 10:03 AM Note Text: OPERATIVE/PROCEDURE REPORT LOG ID: [id number] SURGERY/PROCEDURE DATE: 12/24/2021 INCISION/PROCEDURE START TIME: 8:50 AM INCISION CLOSE/PROCEDURE END TIME: 1:50 PM SURGEON(S)/PROCEDURALI ST(S) AND INSULATION AND FLOORING ASSEMBLER(S): Surgeon(s) and Role: Panel 1: * Mary [...] aspect of the (more content not included)... [facility] Type and SCR (30D)on 022 ABO/RH(D) Positive [facility] Comment on above: Performed By: #### T SCR30 ####[facility] [place], [place] [phone] Confirm Blood Typeon 021 ABO/RH(D) Positive [facility] Comment on above: Performed By: #### C ONABO ####[facility] [place], [place] [phone] Type and SCR (30D)on 021 ABO/RH(D) Positive [facility] Comment on above: Performed By: #### T SCR30 ####[facility] [place], [place] [phone] Nonvisit Note - PTon Nonvisit Note - PT Chart reviewed with eval prepped for scheduled eval. [facility] Consenton 01-08-2021 Consent [id number]#1. 00CD:127 [facility] Coding Summary.on 01-06-2021 Coding Summary. CODING DATE: 01/06/2021 [facility] DS[facility] STATUS: Home (Routine DC) PAYOR: [...] Saved: 01/06/2021 09:01 am [facility] Consent for Procedure/Surger yon 01-04-2021 Consent for Procedure/Surgery [id number]#1. 00CD:127 Normal [facility] Consent for Procedure/Surgery [id number]#1. 00CD:127 Normal [facility] Consent for Treatmenton Consent for Treatment [id number]#1.0 0CD:127 Normal [facility] Discharge Instructionson Discharge Instructions [id number]#1. 00CD:127 [facility] Inpatient Patient Summaryon 01-04-2021 Inpatient Patient Summary [place] [id number] Clinical Summary Person Information Name: MARY LEAL Age: 50 Years : 1970 Sex: Female PCP: Isatu GÓMEZ DO Marital Status: Race: White Ethnicity: Non- or Language: [place] Visit Id: Visit Reason: MIXED INCONTINENCE Speciality: Acuity: Enc Type: Outpatient Med Service: Surgery Arrival: 01/04/2021 12:31:00 Discharge: Dispo Type: Address: [address] [place] [phone] Provider Notes: Diagnosis: Problems Active Decreased bladder [...] This Visit Final Med List: acetaminophen-hydrocod one (Liberal 5/325 Tab) By Mouth every 6 hours. [...] MD Follow up: With: Address: When: Clifford [address], [address], [place] [address] [facility] (1) Within 2 weeks Comments: Call for followup appointment. Have a great day! Patient Education Information: EU - Cystoscopy with Botox Injection Discharge Instructions (Custom) [facility] IntraOperative Documentson 0 01-04-2021 IntraOperative Documents [id number]#1. 00CD:127 [facility] IntraOperative Documents [id number]#1. 00CD:127 [facility] Main OR Intraoperative Recor don 01-04-2021 Main OR Intraoperative Record IntraOp Document Type FTURO Summary Primary Physician: Clifford OCONNOR MD Finalized Date/Time: 01/04/21 13:27:05 Pt. Name: MARY LEAL D.O.B./Sex: 1970 Female Med Rec #: [id number] Physician: Clifford OCONNOR MD Financial #: [id number] Pt. Type: O Room/Bed: / Admit/Disch: 01/04/21 12:31:00 - Institution: Case Times FTURO Entry 1 Patient Times In Room 01/04/21 13:07:00 Out Room 01/04/21 13:27:00 Procedure Times Start 01/04/21 13:19:00 Stop 01/04/21 13:23:00 Anesthesia Times Last Modified By: Niecy Tran RN 01/04/21 13:27:01 Case Attendance FTURO Entry 1 Entry 2 Entry 3 Case Attendee ANASTASIA BENSON, Clifford Dalton DATA SCIENCE AND IOT MANAGER, Akin Mejias DATA SCIENCE AND IOT MANAGER, Debi Chand Role Performed Surgeon - Primary [...] Case Attendee Niecy Tran RN Role Performed Pin Drafter Operator - Primary Time In 01/04/21 13:07:00 Time Out 01/04/21 13:27:00 Procedure CYSTOSCOPY LOCAL BOTOX INJECTION(.) Comments Last Modified By: Niecy Tran RN 01/04/21 13:27:02 Surgical Procedures FTURO Entry 1 Procedure Description Procedure CYSTOSCOPY LOCAL BOTOX Modifiers . INJECTION Surgeon Description CYSTOSCOPY BOTOX 50 UNITS LOT NUMBER [id number] EXP DATE 08/2023 Primary Procedure Yes Primary [...] By: Niecy Tran RN 01/04/21 13:27 Normal [facility] Main OR Preoperative Recordo n 01-04-2021 Main OR Preoperative Record Holding Area Document Type FTURO Summary Primary Physician: Clifford OCONNOR MD Finalized Date/Time: 01/04/21 13:05:55 Pt. Name: MARY LEAL/Sex: 1970 Female Med Rec #: [id number] Physician: Clifford OCONNOR MD Financial #: [id number] Pt. Type: O Room/Bed: / Admit/Disch: 01/04/21 [...] 12:46 Niecy Tran RN 01/04/21 13:05 Normal [facility] Operative Reporton Operative Report Patient: MARY [...] arranged, F/U in two weeks. . Normal [facility] Comment on above: Result Comment: Elec tronically Signed By: Clifford OCONNOR MD\.br\Date and Time Signed: 01/04/21 13:30 EST Outpatient Surgery Discharge Instructionon 01-04-2021 Outpatient Surgery Discharge Instruction [place] [id number] Patient Discharge Instructions PERSON INFORMATION Name: DARRIAN LEALBHUMI Kenny Date of : 1970 Current Date: 01/04/2021 13:25:41 PHYSICIANS Admitting Physician: Clifford OCONNOR MD Comment: Discharge Diagnosis: ELVIS MARY Kenny has been given the following list of follow-up instructions, prescriptions, and patient education materials: IF UNABLE TO CONTACT YOUR PHYSICIAN AND YOU FEEL IT IS AN EMERGENCY, GO TO THE NEAREST EMERGENCY ROOM OR CALL 911 Follow up: With: Address: When: Clifford OCONNOR [address] [place] [address], [address], [place] [phone] Business (1) Within 2 weeks Comments: Call [...] to serve you. Thank you for choosing [facility] Normal [facility] XR Shoulder - right 3 Viewso n 12-25-2020 IMPRESSION: NO SIGNIFICANT CHANGE Trial Court Justice: CAPRI Transcribe Date/Time: Dec 25 2020 12:18P Dictated by : AWA LOPEZ MD This examination was interpreted and the report reviewed and electronically signed by: AWA LOPEZ MD on Dec 25 2020 12:21PM [facility] DIVISION OF RADIOLOGY * * [...] significant abnormality. - DIVISION OF RADIOLOGY [facility] * * *Final Report* * [...] abnormality. - IMPRESSION IMPRESSION: NO SIGNIFICANT CHANGE Trial Court Justice: [facility] Transcribe Date/Time: Dec 25 2020 12:18P Dictated by : AWA LOPEZ MD This examination was interpreted and the report reviewed and electronically signed by: AWA LOPEZ MD on Dec 25 2020 12:21PM EST [facility] Radiology Study observation (narrative) [facility] XR Shoulder - right 3 ViewsO rdered By: [facility] Provider on 12-25-2020 [facility] PT - Assessmentson 1 PT - Assessments [id number]#1. 00CD:127 Normal [facility] Ambulatory Clinical Summaryo n 11-11-2020 Ambulatory Clinical Summary {[id number]-[id number] 9-f1}CD:[id number] Normal [facility] Patient Educationon 11-11-19 21 Patient Education [...] your urinary (more content not included)... Normal [facility] Urology Phone Visit- Telehea [facility] 11-03-2020 Urology Phone Visit- Telehealth HPI [...] only communication with the patient located at [address] [place] [phone] , with no one else. If it [...] Dawna Marmolejo MD [address] [place] [address] [phone] Additional Instructions: Patient Education Urodynamic Testing Overactive [...] stream His (more content not included)... Normal [facility] Comment on above: Result Comment: Elec tronically Signed By: Dawna Marmolejo MD\.br\Date and Time Signed: 11/03/20 11:59 EST\.br\Electronically Co-Signed By: Christy Gill MA\.br\Date and Time Co-Signed: 10/21/20 12:01 EST Coding Summary.on 10-28-2020 Coding Summary. CODING DATE: 10/28/2020 FINAL [facility] STATUS: Home (Routine DC) PAYOR: [...] Saved: 10/28/2020 11:17 am [facility] Ambulatory Clinical Summaryo n 10-27-2020 Ambulatory Clinical Summary {[id number]-[id number] 6-e5}CD:[id number] [facility] Consent for Procedure/Surger yon 10-27-2020 Consent for Procedure/Surgery [id number] .00CD:127 [facility] Consent for Treatmenton 10-07 Consent for Treatment [id number]#1.0 0CD:127 [facility] IntraOperative Documentson 1 12-28-2019 IntraOperative Documents [id number] .00CD:127 [facility] Patient Educationon 10-21-20 20 Patient [...] or depar (more content not included)... Normal [facility] XR Shoulder - right 3 Viewso n 09-29-2020 IMPRESSION: No acute osseous findings. Trial Court Justice: CAPRI Transcribe Date/Time: Sep 29 2020 8:37A Dictated by : FLORENCE TORRES MD This examination was interpreted and the report reviewed and electronically signed by: FLORENCE TORRES MD on Sep 29 2020 8:38AM [facility] DIVISION OF RADIOLOGY * * [...] other significant abnormality. DIVISION OF RADIOLOGY Provider, [facility] - 09/29/2020 * * *Final Report* [...] abnormality. IMPRESSION IMPRESSION: No acute osseous findings. Trial Court Justice: [facility] Transcribe Date/Time: Sep 29 2020 8:37A Dictated by : FLORENCE TORRES MD This examination was interpreted and the report reviewed and electronically signed by: FLORENCE TORRES MD on Sep 29 2020 8:38AM EST [facility] Radiology Study observation (narrative) [facility] XR Shoulder - right 3 ViewsO rdered By: [facility] Provider on 09-29-2020 [facility] PT - Assessmentson 0 PT - Assessments [id number]. 00CD:127 [facility] Nonvisit Note - PTon 020 Nonvisit Note - PT Per voicemail: she needs to cancel all of her PT due to personal reasons. KK [facility] Provider Letteron 09-09-2020 Provider Letter September 09, 2020 MARY LEAL [address] [place] [address] MARY LEAL 1970 Dear Mary Leal, You [...] appreciate your understanding. Sincerely, [facility] [address], [place] [address] [facility] PT - Assessmentson 0 PT - Assessments [id number]. 00CD:127 [facility] PT - Assessments [id number]. 00CD:127 [facility] PT - Assessmentson 0 PT - Assessments [id number]#1. 00CD:127 [facility] PT - Consentson 08-31-2020 PT - Consents [id number]#1. 00CD:127 [facility] Pre-Certification Formon Pre-Certification Form [id number] 0CD:127 Normal [facility] Pre-Certification Form [id number] 0CD:127 Normal [facility] Consent for Procedure/Surger yon 08-26-2020 Consent for Procedure/Surgery [id number] 0CD:127 Normal [facility] Ambulatory Clinical Summaryo n 08-25-2020 Ambulatory Clinical Summary {[id number] [id number] d-}CD:[id number] Normal [facility] Patient Educationon 08-25-20 Patient Education [...] an extended amount of time. Only take oltj-ymd-weqdmzm or prescription medicines for pain, discomfort, or [...] Document Reviewed: 09/07/2009 ExitCare? Patient Information ?2013 [employer] [facility]. [facility] Urology Office/Clinic Noteon 08-25-2020 Urology Office/Clinic [...] Alzheimer's disease: Mother. Hypertension: Mother and Father. [facility] Comment on above: Result Comment: Elec tronically Signed By: Dawna Marmolejo MD\.br\Date and Time Signed: 08/25/20 10:06 EDT\.br\Electronically Co-Signed By: Mary Hager\.br\Date and Time Co-Signed: 08/25/20 09:51 EDT Coding Summary.on 08-21-2020 Coding Summary. CODING DATE: 08/21/2020 [facility] STATUS: PAYOR: Medicaid EA DESCRIPTION 0271 [...] Saved: 08/21/2020 10:42 am [facility] Consenton 08-21-2020 Consent [id number] 0CD:127 Normal [facility] Ambulatory Clinical Summaryo n 08-19-2020 Ambulatory Clinical Summary {[id number]-[id number] }CD:[id number] [facility] Ambulatory Clinical Summary {[id number]-b0-0 d-3c}CD:804228 [facility] Nonvisit Note - PTon 020 Nonvisit Note - PT Chart reviewed for scheduled eval. KK Normal [facility] Patient Educationon 08-19-20 20 Patient [...] your urinary (more content not included)... Normal [facility] U[facility] Phone Visit- Telehealth [...] communication with the patient located at [facility] [phone], with no one else. If it is [...] were discussed. Pt. acknowledges understanding. Ordered: [facility] External Ambulatory Referral Urology Procedure Order 2. Dysuria (R30.0: Dysuria) Moderate. Ordered: [facility] [place] External Ambulatory Referral Urology Procedure Order 3. Feeling of incomplete bladder emptying (R39.14: Feeling of incomplete bladder emptying) Pt. does not feel that she is emptying. Ordered: [facility] [place] External Ambulatory Referral Urology Procedure Order 4. Weak urine stream (R39.12: Poor urinary stream) Weak stream w/ moderate hesitancy. Ordered: [facility] [place] External Ambulatory Referral [...] Will order Local anesthesia. ABX sent to [facility] in [place]. Ordered: [facility] [place] External Ambulatory Referral [...] Patient who (more content not included)... Normal [facility] Comment on above: Result Comment: Elec tronically Signed By: Dawna Marmolejo MD\.br\Date and Time Signed: 08/19/20 08:53 EDT\.br\Electronically Co-Signed By: Christy Gill MA\.br\Date and Time Co-Signed: 08/19/20 08:44 EDT Coding Summary.on 08-12-2020 Coding Summary. CODING DATE: 08/12/2020 FINAL [facility] STATUS: Home (Routine DC) PAYOR: [...] Fried Date Saved: 08/12/2020 09:42 am Normal [facility] Formson 08-11-2020 Forms [id number] 0CD:127 Normal [facility] C Urineon 08-09-2020 Bacteria identified [...] Locations R1: This test was performed at: [facility], [address] [place] [address], [facility] , , [facility] Comment on above: Performed By: #### [id number] ####[facility] [address] [place] [address] Ambulatory Clinical Summaryo n 08-07-2020 Ambulatory Clinical Summary {[id number] 4-a2}CD:[id number] [facility] Patient Educationon 08-07-20 20 Patient Education Kegel [...] Document Reviewed: 07/18/2013 ExitCare? Patient Information ?2013 [employer] [facility]. Family Medicine Overactive Bladder, Adult The [...] bladder, your (more content not included)... Normal [facility] Urology Office/Clinic Noteon 08-07-2020 Urology Office/Clinic [...] information and history for this patient from [employer] CHAIR Ron King There have been no associated [...] setting of nocturia q2hrs and daytime frequency [id number] with painful post void bladder sensation of [...] [address] (more content not included)... [facility] Comment on above: Result Comment: Elec tronically Signed By: Dawna Marmolejo MD\.br\Date and Time Signed: 08/07/20 15:54 EDT\.br\Electronically Co-Signed By: Radha Lopez MA\.br\Date and Time Co-Signed: 08/07/20 15:44 EDT Vital Signs Date Time Vital Sign Value Performing Clinician Facility 06-24-2025 08:57-0400 Body height 162.6 cm Dipti [employer] Work Phone: [facility] 06-24-2025 08:57-0400 Body mass index (BMI) [Ratio] 28.32 kg/m2 [employer] Work Phone: [facility] 06-24-2025 08:57-0400 Body weight 74.84 kg [employer]i [employer] Work Phone: [facility] 06-24-2025 08:57-0400 Diastolic blood pressure 78 mm[Hg] [employer] Work Phone: [facility] 06-24-2025 08:57-0400 Systolic blood pressure 126 mm[Hg] [employer] Work Phone: [facility] 06-06-2025 14:19-0400 Body height 162.6 cm Nancy Swenson PA Work Phone: [facility] 06-06-2025 14:19-0400 Body mass index (BMI) [Ratio] 27.12 kg/m2 Nancy Swenson PA Work Phone: [facility] 06-06-2025 14:19-0400 Body temperature 98.2 [degF] Nancy Swenson PA Work Phone: [facility] 06-06-2025 14:19-0400 Body weight 71.67 kg Nancy Swenson PA Work Phone: [facility] 06-06-2025 14:19-0400 Diastolic blood pressure 64 mm[Hg] Nancy Swenson PA Work Phone: [facility] 06-06-2025 14:19-0400 Heart rate 79 /min Nancy BROOKS Work Phone: [facility] 06-06-2025 14:19-0400 SaO2% (BldA) [Mass fraction] 96 % Nancy BROOKS Work Phone: [facility] 06-06-2025 14:19-0400 Systolic blood pressure 120 mm[Hg] Nancy BROOKS Work Phone: [facility] 06-06-2025 09:04-0400 Body height 162.6 cm Alberto Solis MD Work Phone: [facility] 06-06-2025 09:04-0400 Body mass index (BMI) [Ratio] 28.67 kg/m2 Alberto Solis MD Work Phone: [facility] 06-06-2025 09:04-0400 Body weight 75.75 kg Alberto Solis MD Work Phone: [facility] 06-06-2025 09:04-0400 Diastolic blood pressure 70 mm[Hg] Alberto Solis MD Work Phone: [facility] 06-06-2025 09:04-0400 Systolic blood pressure 117 mm[Hg] Alberto Solis MD Work Phone: [facility] 11-12-2024 08:27-0500 Body mass index (BMI) [Ratio] 26.61 kg/m2 Dipti Acevedo DO Work Phone: [facility] 11-12-2024 08:27-0500 Body weight 70.31 kg Dipti Acevedo DO Work Phone: [facility] 11-12-2024 08:27-0500 Diastolic blood pressure 84 mm[Hg] Dipti Acevedo DO Work Phone: [facility] 11-12-2024 08:27-0500 Systolic blood pressure 122 mm[Hg] Dipti Acevedo DO Work Phone: [facility] 10-24-2024 09:20-0500 Diastolic blood pressure 70 mm[Hg] Shannon Gómez DO Work Phone: [facility] 10-24-2024 09:20-0500 Heart rate 68 /min Shannon Gómez DO Work Phone: [facility] 10-24-2024 09:20-0500 Respiratory rate 16 /min Shannon Gómez DO Work Phone: [facility] 10-24-2024 09:20-0500 SaO2% (BldA) [Mass fraction] 100 % Shannon Gómez DO Work Phone: [facility] 10-24-2024 09:20-0500 Systolic blood pressure 109 mm[Hg] Shannon Gómez DO Work Phone: [facility] 10-24-2024 08:30-0500 Body temperature 98 [degF] Shannon Gómez DO Work Phone: [facility] 10-24-2024 08:03-0500 Inhaled oxygen flow rate 8 L/min Shannon Gómez DO Work Phone: [facility] 10-24-2024 06:36-0500 Body height 162.56 cm Shannon Gómez DO Work Phone: [facility] 10-24-2024 06:36-0500 Body weight 69.39 kg Shannon Gómez DO Work Phone: [facility] 10-23-2024 10:43-0500 Body height 162.6 cm Radha Cardenas MD Work Phone: [facility] 10-23-2024 10:43-0500 Body mass index (BMI) [Ratio] 26.26 kg/m2 Radha Cardenas MD Work Phone: [facility] 10-23-2024 10:43-0500 Body weight 69.4 kg Radha Cardenas MD Work Phone: [facility] 10-23-2024 10:43-0500 Diastolic blood pressure 80 mm[Hg] Radha Cardenas MD Work Phone: [facility] 10-23-2024 10:43-0500 Heart rate 68 /min Radha Cardenas MD Work Phone: [facility] 10-23-2024 10:43-0500 SaO2% (BldA) [Mass fraction] 98 % Radha Cardenas MD Work Phone: [facility] 10-23-2024 10:43-0500 Systolic blood pressure 112 mm[Hg] Radha Cardenas MD Work Phone: [facility] 10-15-2024 15:04-0500 Body mass index (BMI) [Ratio] 26.61 kg/m2 Dipti Acevedo DO Work Phone: [facility] 10-15-2024 15:04-0500 Body weight 70.31 kg Dipti Acveedo DO Work Phone: [facility] 10-15-2024 15:04-0500 Diastolic blood pressure 68 mm[Hg] Dipti Acevedo DO Work Phone: [facility] 10-15-2024 15:04-0500 Systolic blood pressure 108 mm[Hg] Dipti Mookie Work Phone: [facility] 10-14-2024 08:26-0500 Body height 162.56 cm G. Parish Gómez DO Work Phone: [facility] 10-14-2024 08:26-0500 Body mass index (BMI) [Ratio] 26.2 kg/m2 G. Parish Gómez DO Work Phone: [facility] 10-14-2024 08:26-0500 Body weight 69.39 kg G. Parish Gómez DO Work Phone: [facility] 09-26-2024 16:19-0500 Body height 162.6 cm Ron Luby INSTRUMENTATION TECHNOLOGIST Work Phone: [facility] 09-26-2024 16:19-0500 Body mass index (BMI) [Ratio] 26.64 kg/m2 Ron King INSTRUMENTATION TECHNOLOGIST Work Phone: [facility] 09-26-2024 16:19-0500 Body temperature 97.5 [degF] Ron Fernando INSTRUMENTATION TECHNOLOGIST Work Phone: [facility] 09-26-2024 16:19-0500 Body weight 70.4 kg Ron Fernando INSTRUMENTATION TECHNOLOGIST Work Phone: [facility] 09-26-2024 16:19-0500 Diastolic blood pressure 90 mm[Hg] Ron Fernando INSTRUMENTATION TECHNOLOGIST Work Phone: [facility] 09-26-2024 16:19-0500 Heart rate 85 /min Ron Fernando INSTRUMENTATION TECHNOLOGIST Work Phone: [facility] 09-26-2024 16:19-0500 SaO2% (BldA) [Mass fraction] 99 % Ron Benedictsteven INSTRUMENTATION TECHNOLOGIST Work Phone: [facility] 09-26-2024 16:19-0500 Systolic blood pressure 142 mm[Hg] Ron Fernando INSTRUMENTATION TECHNOLOGIST Work Phone: [facility] 09-16-2024 14:56-0500 Body height 162.56 cm [facility] 09-16-2024 14:56-0500 Body mass index (BMI) [Ratio] 25.5 kg/m2 [facility] 09-16-2024 14:56-0500 Body weight 67.58 kg [facility] 09-04-2024 14:30-0400 Body height 162.6 cm Ron Fernando INSTRUMENTATION TECHNOLOGIST Work Phone: [facility] 09-04-2024 14:30-0400 Body mass index (BMI) [Ratio] 25.58 kg/m2 Ron Fernando INSTRUMENTATION TECHNOLOGIST Work Phone: [facility] 09-04-2024 14:30-0400 Body temperature 97.5 [degF] Ron King INSTRUMENTATION TECHNOLOGIST Work Phone: [facility] 09-04-2024 14:30-0400 Body weight 67.59 kg Ron King INSTRUMENTATION TECHNOLOGIST Work Phone: [facility] 09-04-2024 14:30-0400 Diastolic blood pressure 76 mm[Hg] Ron King INSTRUMENTATION TECHNOLOGIST Work Phone: [facility] 09-04-2024 14:30-0400 Heart rate 55 /min Ron King INSTRUMENTATION TECHNOLOGIST Work Phone: [facility] 09-04-2024 14:30-0400 SaO2% (BldA) [Mass fraction] 99 % Ron King INSTRUMENTATION TECHNOLOGIST Work Phone: [facility] 09-04-2024 14:30-0400 Systolic blood pressure 110 mm[Hg] Ron King INSTRUMENTATION TECHNOLOGIST Work Phone: [facility] 08-07-2024 09:12-0400 Body height 162.6 cm Radha Cardenas MD Work Phone: [facility] 08-07-2024 09:12-0400 Body mass index (BMI) [Ratio] 26.43 kg/m2 Radha Cardenas MD Work Phone: [phone](444)[phone] [address] 08-07-2024 09:12-0400 Body temperature 97.3 [degF] Radha Cardenas MD Work Phone: 2(940)[phone] [place] [address] 08-07-2024 09:12-0400 Body weight 69.85 kg Radha Cardenas MD Work Phone: 6(008)560-294064 [address] 08-07-2024 09:12-0400 Diastolic blood pressure 82 mm[Hg] Radha Cardenas MD Work Phone: [facility] 08-07-2024 09:12-0400 Heart rate 68 /min Radha Cardenas MD Work Phone: [facility] 08-07-2024 09:12-0400 SaO2% (BldA) [Mass fraction] 100 % Radha Cardenas MD Work Phone: [facility] 08-07-2024 09:12-0400 Systolic blood pressure 120 mm[Hg] Radha Cardenas MD Work Phone: [facility] 08-01-2024 15:22-0400 Body height 162.6 cm Eliceo Gómez DO Work Phone: [facility] 08-01-2024 15:22-0400 Body mass index (BMI) [Ratio] 25.73 kg/m2 Eliceo Gómez DO Work Phone: [facility] 08-01-2024 15:22-0400 Body temperature 96.8 [degF] Eliceo Gómez DO Work Phone: [facility] 08-01-2024 15:22-0400 Body weight 68 kg Eliceo Gómez DO Work Phone: [facility] 08-01-2024 15:22-0400 Diastolic blood pressure 60 mm[Hg] Eliceo Gómez DO Work Phone: [facility] 08-01-2024 15:22-0400 Heart rate 98 /min Eliceo Gómez DO Work Phone: [facility] 08-01-2024 15:22-0400 SaO2% (BldA) [Mass fraction] 99 % Eliceo Gómez DO Work Phone: [facility] 08-01-2024 15:22-0400 Systolic blood pressure 122 mm[Hg] Eliceo Gómez DO Work Phone: [facility] 07-11-2024 09:44-0400 Body height 162.6 cm Eliceo Gómez DO Work Phone: [facility] 07-11-2024 09:44-0400 Body mass index (BMI) [Ratio] 26.09 kg/m2 Eliceo Gómez DO Work Phone: [facility] 07-11-2024 09:44-0400 Body temperature 97.11 [degF] Eliceo Gómez DO Work Phone: [facility] 07-11-2024 09:44-0400 Body weight 68.95 kg Eliceo Gómez DO Work Phone: [facility] 07-11-2024 09:44-0400 Diastolic blood pressure 64 mm[Hg] Eliceo Gómez DO Work Phone: [facility] 07-11-2024 09:44-0400 Heart rate 86 /min Eliceo Gómez DO Work Phone: [facility] 07-11-2024 09:44-0400 SaO2% (BldA) [Mass fraction] 97 % Eliceo Gómez DO Work Phone: [facility] 07-11-2024 09:44-0400 Systolic blood pressure 108 mm[Hg] Eliceo Gómez DO Work Phone: [facility] 04-12-2024 13:10-0400 Diastolic blood pressure 75 mm[Hg] Milagros Franco MD, PhD Work Phone: [facility] 04-12-2024 13:10-0400 Heart rate 62 /min Milagros Franco MD, PhD Work Phone: [facility] 04-12-2024 13:10-0400 Respiratory rate 20 /min Milagros Franco MD, PhD Work Phone: [facility] 04-12-2024 13:10-0400 SaO2% (BldA) [Mass fraction] 100 % Milagros Franco MD, PhD Work Phone: [facility] 04-12-2024 13:10-0400 Systolic blood pressure 121 mm[Hg] Milagros Franco MD, PhD Work Phone: [facility] 04-12-2024 11:35-0400 Body height 162.6 cm Milagros Franco MD, PhD Work Phone: [facility] 04-12-2024 11:35-0400 Body mass index (BMI) [Ratio] 25.75 kg/m2 Milagros Franco MD, PhD Work Phone: [facility] 04-12-2024 11:35-0400 Body temperature 97.9 [degF] Milagros Franco MD, PhD Work Phone: [facility] 04-12-2024 11:35-0400 Body weight 68.04 kg Milagros Franco MD, PhD Work Phone: [facility] 02-27-2024 09:48-0400 Body height 162.6 cm Flower Jessica [employer]PER.CHEMI[employer]Y DEPARTMENT CHAIR Work Phone: [facility] 02-27-2024 09:48-0400 Body mass index (BMI) [Ratio] 26.45 kg/m2 Flower Jessica [employer]PER.CHEMISTRY DEPARTMENT CHAIR Work Phone: [facility] 02-27-2024 09:48-0400 Body weight 69.9 kg Flower Jessica [employer]AMPER.CHEMISTRY DEPARTMENT CHAIR Work Phone: [facility] 02-27-2024 09:48-0400 Diastolic blood pressure 93 mm[Hg] Flower Jessica SWAMPER.CHEMISTRY DEPARTMENT CHAIR Work Phone: [facility] 02-27-2024 09:48-0400 Heart rate 62 /min Flower Jessica SWAMPER.CHEMISTRY DEPARTMENT CHAIR Work Phone: [facility] 02-27-2024 09:48-0400 Systolic blood pressure 146 mm[Hg] Flower Jessica SWAMPER.CHEMISTRY DEPARTMENT CHAIR Work Phone: [facility] 01-25-2024 09:05-0400 Body height 162.6 cm [employer] Work Phone: [facility] 01-25-2024 09:05-0400 Body weight 68.04 kg [employer] Work Phone: [facility] 01-25-2024 09:05-0400 Heart rate 84 /min [employer] Work Phone: [facility] 01-25-2024 09:05-0400 Respiratory rate 16 /min [employer] Work Phone: [facility] 01-10-2024 12:40-0500 Body height 162.6 cm Cullen Dawkins MD Work Phone: [facility] 01-10-2024 12:40-0500 Body mass index (BMI) [Ratio] 27.89 kg/m2 Cullen Dawkins MD Work Phone: [facility] 01-10-2024 12:40-0500 Body weight 73.7 kg Cullen Dawkins MD Work Phone: [facility] 12-20-2023 12:21-0500 Body height 162.6 cm [facility] 12-20-2023 12:21-0500 Body mass index (BMI) [Ratio] 28.38 kg/m2 [facility] 12-20-2023 12:21-0500 Body temperature 98.2 [degF] [facility] 12-20-2023 12:21-0500 Body weight 75 kg [facility] 12-20-2023 12:21-0500 Diastolic blood pressure 90 mm[Hg] [facility] 12-20-2023 12:21-0500 Heart rate 72 /min [facility] 12-20-2023 12:21-0500 Respiratory rate 18 /min [facility] 12-20-2023 12:21-0500 SaO2% (BldA) [Mass fraction] 96 % [facility] 12-20-2023 12:21-0500 Systolic blood pressure 138 mm[Hg] [facility] 11-23-2023 08:14-0500 Body height 162.56 cm DO IsatuReno Parish Gómez Work Phone: [facility] 11-23-2023 08:14-0500 Body weight 70.3 kg DO Shannon Gómez Work Phone: [facility] 08-12-2023 07:08-0400 Diastolic blood pressure 65 mm[Hg] Lex Salmon MD Work Phone: [facility] [facility] 08-12-2023 07:08-0400 Heart rate 77 /min Lex Salmon MD Work Phone: [facility] 08-12-2023 07:08-0400 SaO2% (BldA) [Mass fraction] 98 % Lex Salmon MD Work Phone: [facility] 08-12-2023 07:08-0400 Systolic blood pressure 132 mm[Hg] Lex Salmon MD Work Phone: [facility] 08-12-2023 06:48-0400 Respiratory rate 13 /min Lex Salmon MD Work Phone: [facility] 08-12-2023 00:25-0400 Body height 162.6 cm Lex Salmon MD Work Phone: [facility] 08-12-2023 00:25-0400 Body mass index (BMI) [Ratio] 28.01 kg/m2 Lex Salmon MD Work Phone: [facility] 08-12-2023 00:25-0400 Body temperature 97.59 [degF] Lex Salmon MD Work Phone: [facility] 08-12-2023 00:25-0400 Body weight 74.03 kg Lex Salmon MD Work Phone: [facility] 07-31-2023 14:27-0400 Body height 162.6 cm Nelsy Chávez APRN.CHEMISTRY DEPARTMENT CHAIR Work Phone: [facility] 07-31-2023 14:27-0400 Body weight 69.85 kg Nelsy Chávez APRN.CHEMISTRY DEPARTMENT CHAIR Work Phone: [facility] 07-31-2023 14:27-0400 Diastolic blood pressure 96 mm[Hg] Nelsy Chávez APRN.CHEMISTRY DEPARTMENT CHAIR Work Phone: [facility] 07-31-2023 14:27-0400 Heart rate 76 /min Nelsy Chávez SWAMPER.CHEMISTRY DEPARTMENT CHAIR Work Phone: [facility] 07-31-2023 14:27-0400 Systolic blood pressure 136 mm[Hg] Nelsy Chávez CHEMISTRY DEPARTMENT CHAIR Work Phone: [facility] 06-13-2023 10:37-0400 Body height 162.56 cm Eliceo Gómez Work Phone: [facility] DO Work Phone: 06-13-2023 10:37-0400 Body mass index (BMI) [Ratio] 27.46 kg/m2 Eliceo Gómez Work Phone: [facility] DO Work Phone: 06-13-2023 10:37-0400 Body surface area Derived from formula 1.78 m2 Eliceo Gómez Work Phone: [facility] DO Work Phone: 06-13-2023 10:37-0400 Body weight 72.58 kg Eliceo Gómez Work Phone: [facility] DO Work Phone: 06-13-2023 10:37-0400 Diastolic blood pressure 70 mm[Hg] Eliceo Gómez Work Phone: [facility] DO Work Phone: 06-13-2023 10:37-0400 Heart rate 70 /min Eliceo Gómez Work Phone: [facility] DO Work Phone: 06-13-2023 10:37-0400 Systolic blood pressure 100 mm[Hg] Eliceo Gómez Work Phone: [facility] DO Work Phone: 06-13-2023 10:37-0400 11 1 Eliceo Gómez Work Phone: [facility] DO Work Phone: Comment on above: PHQ-9 TS 06-05-2023 13:23-0400 Diastolic blood pressure 68 mm[Hg] DO Shannon Gómez Work Phone: [facility] 06-05-2023 13:23-0400 Heart rate 72 /min DO Shannon Gómez Work Phone: [facility] 06-05-2023 13:23-0400 Respiratory rate 18 /min DO Shannon Gómez Work Phone: [facility] 06-05-2023 13:23-0400 SaO2% (BldA) [Mass fraction] 97 % DO Shannon Gómez Work Phone: [facility] 06-05-2023 13:23-0400 Systolic blood pressure 129 mm[Hg] DO Shannon Gómez Work Phone: [facility] 06-05-2023 09:32-0400 Body height 162.56 cm DO Shannon Gómez Work Phone: [facility] 06-05-2023 09:32-0400 Body weight 73.9 kg DO Shannon Gómez Work Phone: [facility] 06-05-2023 09:31-0400 Body temperature 97.5 [degF] DO Shannon Gómez Work Phone: [facility] 01-16-2023 13:18-0400 Body height 162.6 cm [facility] 01-16-2023 13:18-0400 Body weight 68.04 kg [facility] 11-21-2022 08:00-0500 Body height 162.6 cm [facility] 2 Work Phone: [facility] 11-21-2022 08:00-0500 Body weight 64.86 kg [facility] 2 Work Phone: [facility] 10-11-2022 10:08-0500 Body height 162.6 cm Isra Masters DO Work Phone: [facility] 10-11-2022 10:08-0500 Body weight 78.02 kg Isra Masters DO Work Phone: [facility] 10-11-2022 10:08-0500 Diastolic blood pressure 97 mm[Hg] Isra Masters DO Work Phone: [facility] 10-11-2022 10:08-0500 Heart rate 89 /min Isra Masters DO Work Phone: [facility] 10-11-2022 10:08-0500 Systolic blood pressure 141 mm[Hg] Isra Masters DO Work Phone: [facility] 10-10-2022 14:30-0500 Body height 162.56 cm Beto Olexa Other 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 Other 10-10-2022 14:30-0500 Body mass index (BMI) [Ratio] 28.66 kg/m2 Beto Olexa Other 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 Other 10-10-2022 14:30-0500 Body weight 75.75 kg Beto Olexa Other 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 Other 07-26-2022 11:13-0400 Body height 162.6 cm Mary Obrien MD Work Phone: [facility] 07-26-2022 11:13-0400 Body temperature 97.5 [degF] Mary Obrien MD Work Phone: [facility] 07-26-2022 11:13-0400 Body weight 77.56 kg Mary Obrien MD Work Phone: [facility] 07-26-2022 11:13-0400 Diastolic blood pressure 83 mm[Hg] Mary Obrien MD Work Phone: [facility] 07-26-2022 11:13-0400 Heart rate 95 /min Mary Obrien MD Work Phone: [facility] 07-26-2022 11:13-0400 SaO2% (BldA) [Mass fraction] 97 % Mary Obrien MD Work Phone: [facility] 07-26-2022 11:13-0400 Systolic blood pressure 110 mm[Hg] Mary Obrien MD Work Phone: [facility] 05-26-2022 11:45-0400 Body height 162.56 cm Beto Snyder Other 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 Other 05-26-2022 11:45-0400 Body mass index (BMI) [Ratio] 29.18 kg/m2 Beto Snyder Other 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 Other 05-26-2022 11:45-0400 Body weight 77.11 kg Beto Snyder Other 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 Other 05-12-2022 09:06-0400 Diastolic blood pressure 80 mm[Hg] Eliceo Gómez Work Phone: [employer] [facility] [employer] [place] [address] DO Work Phone: 05-12-2022 09:06-0400 Systolic blood pressure 126 mm[Hg] Eliceo Gómez Work Phone: [employer] [facility] [employer] [place] [address] DO Work Phone: 05-12-2022 08:57-0400 Body height 162.56 cm Eliceo Gómez Work Phone: [employer] DO Work Phone: 05-12-2022 08:57-0400 Body mass index (BMI) [Ratio] 29.87 kg/m2 Eliceo Gómez Work Phone: [employer] DO Work Phone: 05-12-2022 08:57-0400 Body surface area Derived from formula 1.84 m2 Eliceo Gómez Work Phone: [employer] [facility] [employer] [place] [address] DO Work Phone: 05-12-2022 08:57-0400 Body weight 78.93 kg Eliceo Gómez Work Phone: [employer] [facility] [employer] 250 DO Work Phone: 05-12-2022 08:57-0400 Diastolic blood pressure 80 mm[Hg] Eliceo Gómez Work Phone: [employer] [facility] [address] DO Work Phone: 05-12-2022 08:57-0400 Heart rate 68 /min Eliceo Gómez Work Phone: [employer] [facility] [address] DO Work Phone: 05-12-2022 08:57-0400 Systolic blood pressure 130 mm[Hg] Eliceo Gómez Work Phone: [employer] [facility] [employer] [address] DO Work Phone: 05-10-2022 12:30-0400 Body height 162.56 cm Allison Lutzault Other 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 Other 05-10-2022 12:30-0400 Body mass index (BMI) [Ratio] 29.18 kg/m2 Allison Lyla Other 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 Other 05-10-2022 12:30-0400 Body temperature 97.3 [degF] Allison Lyla Other 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 Other 05-10-2022 12:30-0400 Body weight 77.11 kg Allison Lyla Other 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 Other 05-10-2022 12:30-0400 Respiratory rate 18 /min Allison Lyla Other 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 Other 05-10-2022 12:30-0400 SaO2% (BldA) [Mass fraction] 98 % Allison Arita Other 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 Other 04-22-2022 12:04-0400 Body height 162.6 cm Jessi Sheets SWAMPER.CHEMISTRY DEPARTMENT CHAIR Work Phone: [facility] 04-22-2022 12:04-0400 Body weight 77.56 kg Jessi Sheets SWAMPER.CHEMISTRY DEPARTMENT CHAIR Work Phone: [facility] 04-22-2022 12:04-0400 Diastolic blood pressure 68 mm[Hg] Jessi Sheets SWAMPER.CHEMISTRY DEPARTMENT CHAIR Work Phone: [facility] 04-22-2022 12:04-0400 Heart rate 76 /min Jessi Sheets SWAMPER.CHEMISTRY DEPARTMENT CHAIR Work Phone: [facility] 04-22-2022 12:04-0400 SaO2% (BldA) [Mass fraction] 98 % Jessi Sheets SWAMPER.CHEMISTRY DEPARTMENT CHAIR Work Phone: [facility] 04-22-2022 12:04-0400 Systolic blood pressure 104 mm[Hg] Jessi Sheets SWAMPER.CHEMISTRY DEPARTMENT CHAIR Work Phone: [facility] 03-15-2022 16:30-0400 Body height 162.56 cm Beto Snyder Other 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 Other 03-15-2022 16:30-0400 Body mass index (BMI) [Ratio] 30.55 kg/m2 Beto Snyder Other 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 Other 03-15-2022 16:30-0400 Body weight 80.74 kg Beto Snyder Other 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 Other 03-15-2022 08:36-0400 Body height 162.6 cm Isra Masters DO Work Phone: [facility] 03-15-2022 08:36-0400 Body weight 83.01 kg Isra Masters DO Work Phone: [facility] 03-15-2022 08:36-0400 Diastolic blood pressure 87 mm[Hg] Isra Masters DO Work Phone: [facility] 03-15-2022 08:36-0400 Heart rate 85 /min Isra Masters DO Work Phone: [facility] 03-15-2022 08:36-0400 SaO2% (BldA) [Mass fraction] 100 % Isra Masters DO Work Phone: [facility] 03-15-2022 08:36-0400 Systolic blood pressure 133 mm[Hg] Isra Masters DO Work Phone: [facility] 03-14-2022 10:23-0400 Body height 162.6 cm Pacc 4 Work Phone: [facility] 03-14-2022 10:23-0400 Body temperature 97.2 [degF] Pacc 4 Work Phone: [facility] 03-14-2022 10:23-0400 Body weight 83.01 kg Pacc 4 Work Phone: [facility] 03-14-2022 10:23-0400 Diastolic blood pressure 76 mm[Hg] Pacc 4 Work Phone: [facility] 03-14-2022 10:23-0400 Heart rate 74 /min Pacc 4 Work Phone: [facility] 03-14-2022 10:23-0400 Respiratory rate 16 /min Pacc 4 Work Phone: [facility] 03-14-2022 10:23-0400 SaO2% (BldA) [Mass fraction] 98 % Pacc 4 Work Phone: [facility] 03-14-2022 10:23-0400 Systolic blood pressure 114 mm[Hg] Pacc 4 Work Phone: [facility] 02-18-2022 09:43-0400 Body height 162.6 cm Nelsy Chávez APRN.CNP Work Phone: [facility] 02-18-2022 09:43-0400 Body weight 80.29 kg Nelsy Wynnegand SWAMPER.CHEMISTRY DEPARTMENT CHAIR Work Phone: [facility] 02-18-2022 09:43-0400 Diastolic blood pressure 70 mm[Hg] Nelsy Katya SWAMPER.CHEMISTRY DEPARTMENT CHAIR Work Phone: [facility] 02-18-2022 09:43-0400 Systolic blood pressure 110 mm[Hg] Nelsy Chávez SWAMPER.CHEMISTRY DEPARTMENT CHAIR Work Phone: [facility] 02-08-2022 14:52-0400 Body height 162.6 cm Mary Obrien MD Work Phone: [facility] 02-08-2022 14:52-0400 Body weight 83.01 kg Mary Obrien MD Work Phone: [facility] 02-08-2022 14:52-0400 Diastolic blood pressure 76 mm[Hg] Mary Obrien MD Work Phone: [facility] 02-08-2022 14:52-0400 Heart rate 79 /min Mary Obrien MD Work Phone: [facility] 02-08-2022 14:52-0400 SaO2% (BldA) [Mass fraction] 97 % Mary Obrien MD Work Phone: [facility] 02-08-2022 14:52-0400 Systolic blood pressure 113 mm[Hg] Mary Obrien MD Work Phone: [facility] 02-08-2022 11:19-0400 Body weight 83.01 kg Magali Mitchell SWAMPER.CHEMISTRY DEPARTMENT CHAIR Work Phone: [facility] 02-08-2022 11:19-0400 Diastolic blood pressure 76 mm[Hg] Magali Mitchell SWAMPER.CHEMISTRY DEPARTMENT CHAIR Work Phone: [facility] 02-08-2022 11:19-0400 Heart rate 74 /min Magali Mitchell SWAMPER.CHEMISTRY DEPARTMENT CHAIR Work Phone: [facility] 02-08-2022 11:19-0400 Systolic blood pressure 113 mm[Hg] Magali Stephen QUIGLEY.CHEMISTRY DEPARTMENT CHAIR Work Phone: [facility] 10-20-2021 09:45-0500 Body height 162.56 cm Beto Snyder Other 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 Other 10-20-2021 09:45-0500 Body mass index (BMI) [Ratio] 31.41 kg/m2 Beto Snyder Other 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 Other 10-20-2021 09:45-0500 Body weight 83.01 kg Beto Snyder Other 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 Other 08-19-2021 17:10-0400 Body height 162.56 cm Erica Vashti Other 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 Other 08-19-2021 17:10-0400 Body mass index (BMI) [Ratio] 31.24 kg/m2 Erica Vashti Other 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 Other 08-19-2021 17:10-0400 Body temperature 97.3 [degF] Erica Kumarmond Other 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 Other 08-19-2021 17:10-0400 Body weight 82.56 kg Erica Vashti Other 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 Other 08-19-2021 17:10-0400 Diastolic blood pressure 82 mm[Hg] Erica Vashti Other 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 Other 08-19-2021 17:10-0400 Respiratory rate 18 /min Erica Vashti Other 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 Other 08-19-2021 17:10-0400 SaO2% (BldA) [Mass fraction] 98 % Erica Kingston Other 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 Other 08-19-2021 17:10-0400 Systolic blood pressure 126 mm[Hg] Erica Kingston Other 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 Other 08-13-2021 10:15-0400 Body height 162.56 cm Tita Ginty Other 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 Other 08-13-2021 10:15-0400 Body mass index (BMI) [Ratio] 30.89 kg/m2 Tita Ginty Other 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 Other 08-13-2021 10:15-0400 Body temperature 6 [degF] Tita Ginty Other 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 Other 08-13-2021 10:15-0400 Body weight 81.65 kg Tita Ginty Other 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 Other 08-13-2021 10:15-0400 SaO2% (BldA) [Mass fraction] 99 % Tita Ginty Other 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 Other 07-28-2021 09:30-0400 Body height 162.56 cm Beto Snyder Other 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 Other 07-28-2021 09:30-0400 Body mass index (BMI) [Ratio] 30.89 kg/m2 Beto Snyder Other 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 Other 07-28-2021 09:30-0400 Body weight 81.65 kg Beto Snyder Other 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 Other Encounters Encounter Date Encounter Type Care Provider Facility Start: 06-24-2025 End: 06-24-2025 Patient encounter status Dipti Acevedo DO Work Phone: [facility] Start: 06-24-2025 End: 06-24-2025 Periodic preventive med est patient 40-64yrs Dipti Acevedo DO Work Phone: [facility] Comment on above: Encounter for gyneco logical examination without abnormal finding; Encounter for Papanicolaou smear of vagina; Breast cancer screening by mammogram; Hormone replacement therapy; Chronic vulvitis; Night sweats; Dyspareunia in female; Erythema Start: 06-06-2025 End: 06-06-2025 Office outpatient visit 15 minutes Nancy Swenson PA Work Phone: [facility] 230 Comment on above: Mild persistent asth ma with acute exacerbation (HCC) (Primary Dx) Start: 06-06-2025 End: 06-06-2025 ambulatory NANCY SWENSON Not Available Start: 06-06-2025 End: 06-06-2025 Office outpatient new 45 minutes Vicki Roche DO Work Phone: [facility] Comment on above: Gastroparesis (Prima ry Dx); Esophageal dysphagia; Gastroesophageal reflux disease with esophagitis without hemorrhage; Diarrhea, unspecified type; Flatulence Start: 06-06-2025 End: 06-06-2025 ambulatory ALBERTO SOLIS [facility] Start: 06-04-2025 End: 06-05-2025 Telephone encounter Joanna Piper [facility] Comment on above: Results Start: 05-19-2025 End: 05-19-2025 ambulatory [facility] MD [facility] Start: 05-14-2025 ambulatory [facility] Start: 05-13-2025 ambulatory [facility] Start: 05-05-2025 End: 05-05-2025 ambulatory Ace Ahumada MD Facility:[facility] Start: 04-30-2025 End: 04-30-2025 ambulatory Shannon Gómez DO Work Phone: [facility] Work Phone: Start: 04-30-2025 End: 04-30-2025 Patient encounter procedure juanchotonia Cavazos DO -[facility] Work Phone: Start: 04-21-2025 End: 04-21-2025 Refill Pauline Christensen MD Work Phone: [facility] Comment on above: Other migraine witho ut status migrainosus, not intractable Start: 04-14-2025 End: 04-14-2025 ambulatory Ace Ahumada MD Facility:[facility] Start: 03-17-2025 End: 03-17-2025 ambulatory Ace Ahumada MD Facility:[facility] Start: 02-25-2025 End: 02-25-2025 Patient encounter procedure Shannon Gómez DO Work Phone: [facility] [address] Cl[facility] Work Phone: Start: 02-25-2025 End: 02-25-2025 ambulatory Shannon Gómez DO Work Phone: [facility] Work Phone: Start: 02-24-2025 End: 03-10-2025 Telephone encounter Dipti Acevedo DO Work Phone: [facility] Start: 02-17-2025 End: 02-17-2025 Patient encounter procedure Shannon Gómez DO Work Phone: [facility] [address] Work Phone: Start: 02-17-2025 End: 02-17-2025 ambulatory Shannon Gómez DO Work Phone: [facility] Work Phone: Start: 01-25-2025 End: 01-25-2025 Orders Only Pauline Christensen MD Work Phone: [facility] Start: 01-20-2025 End: 01-20-2025 Bamboo [...] 12-16-2024 End: 12-16-2024 Patient encounter procedure Shannon Parish Gómez DO Work Phone: [facility] [address] Work Phone: Start: 12-16-2024 End: 12-16-2024 ambulatory IsatuReno Parish Dalia DO Work Phone: [facility] Work Phone: Start: 12-11-2024 End: 12-11-[address] [place] [address] Start: 12-10-2024 End: 12-11-2024 Refill [facility] Comment on above: Other migraine witho ut status migrainosus, not intractable Start: 11-26-2024 End: 11-26-2024 Refill Eliceo Gómez DO Work Phone: [facility] Comment on above: Restless legs syndro me Start: 11-20-2024 End: 11-20-2024 ambulatory Shannon Szymanskileigha DO Work Phone: [facility] Work Phone: Start: 11-20-2024 End: 11-20-2024 Patient encounter procedure IsatuReno Parish Dalia DO Work Phone: [facility] Work Phone: Start: 11-19-2024 End: 11-19-2024 Bamboo flowsheet Nelsy Snyder SWAMPER-CHEMISTRY DEPARTMENT CHAIR Work Phone: [facility] Start: 11-19-2024 End: 11-19-2024 Bamboo flowsheet Nelsy Fernándezer SWAMPER-CHEMISTRY DEPARTMENT CHAIR Work Phone: [facility] Start: 11-19-2024 End: 11-19-2024 Office outpatient visit 15 minutes Nelsy Fernándezer SWAMPER-CHEMISTRY DEPARTMENT CHAIR Work Phone: [facility] Comment on above: Seborrheic keratosis ; Lentigines; Capillary angioma Start: 11-19-2024 End: 11-19-2024 ambulatory NELSY SNYDER Not Available Start: 11-14-2024 End: 11-14-2024 Patient encounter procedure Shannon Gómez DO Work Phone: [facility] Work Phone: Start: 11-14-2024 End: 11-14-2024 ambulatory Shannon Gómez DO Work Phone: [facility] Work Phone: Start: 11-12-2024 End: 11-12-2024 Postop follow up visit related to original px Dipti Acevedo DO Work Phone: [facility] Comment on above: Aftercare following surgery Start: 11-12-2024 End: 11-12-2024 ambulatory DIPTI ACEVEDO Not Available Start: 11-11-2024 End: 11-11-2024 ambulatory Ace Ahumada MD Facility:[facility] Start: 11-04-2024 End: 12-28-2024 ambulatory Shannon GÓMEZ Facility:[facility] Start: 10-28-2024 End: 10-28-2024 Postop follow up visit related to original px Dipti Acevedo DO Work Phone: [facility] Comment on above: Aftercare following surgery Start: 10-28-2024 End: 10-28-2024 ambulatory DIPTI ACEVEDO Not Available Start: 10-28-2024 ambulatory Shannon SZYMANSKIJEROMETOMASA [place] ty:[facility] Start: 10-24-2024 End: 10-24-2024 Admission to same day surgery center Shannon Szymanskijerometomasa DO Work Phone: [facility] [place] Start: 10-24-2024 End: 10-24-2024 ambulatory Shannon Lugo Dalia Facility:[facility] Start: 10-23-2024 End: 10-23-2024 Office outpatient visit 40 minutes Radha Cardenas MD Work Phone: [facility] Comment on above: Chronic diarrhea (Pr imary Dx); Chronic abdominal pain; Bloating; Inadequate oral intake; Taylor grade D esophagitis; Gastroparesis Start: 10-23-2024 ambulatory Shannon SZYMANSKILEIGHA [place] ty:[facility] Start: 10-15-2024 End: 10-15-2024 Office outpatient visit 25 minutes Dipti Acevedo DO Work Phone: [facility] Comment on above: PCB (post coital ble eding); Granulation tissue; Hymen abnormality Start: 10-15-2024 End: 10-15-2024 ambulatory DIPTI ACEVEDO Not Available Start: 10-14-2024 End: 10-14-2024 Patient encounter procedure Shannon Szymanskileigha DO Work Phone: [facility] Work Phone: Start: 10-10-2024 End: 10-10-2024 Patient encounter procedure Shannon Szymanskileigha DO Work Phone: [facility] [address] [facility] Work Phone: Start: 10-10-2024 End: 10-10-2024 ambulatory Shannon Gómez Facility:[facility] Start: 10-09-2024 End: 10-09-2024 ambulatory Shannon Gómez Facility:[facility] Start: 10-09-2024 Non-patient / Non-visit Shannon Israel Gómez DO Work Phone: [facility] Work Phone: Start: 09-27-2024 End: 09-27-2024 Office outpatient visit 15 minutes Dipti Acevedo DO Work Phone: [facility] Comment on above: PCB (post coital ble eding) (Primary Dx); Granulation tissue Start: 09-27-2024 End: 09-27-2024 ambulatory DIPTI ACEVEDO Not Available Start: 09-26-2024 End: 09-26-2024 Office outpatient visit 15 minutes Ron King INSTRUMENTATION TECHNOLOGIST Work Phone: [phone] Comment on above: Degenerative disc di sease, cervical (Primary Dx) Start: 09-26-2024 End: 09-27-2024 ambulatory RON KING Not Available Start: 09-24-2024 End: 09-24-2024 Office outpatient visit 15 minutes Dipti Acevedo DO Work Phone: [facility] Comment on above: Granulation tissue; Hymen abnormality Start: 09-24-2024 End: 09-24-2024 ambulatory DIPTI ACEVEDO Not Available Start: 09-16-2024 End: 09-16-[address] [facility] Work Phone: Start: 09-16-2024 End: 09-16-2024 Patient encounter procedure [facility] Work Phone: Start: 09-04-2024 End: 09-04-2024 Office outpatient visit 15 minutes Ron King INSTRUMENTATION TECHNOLOGIST Work Phone: [phone] Comment on above: Anxiety (Primary Dx) Urinary frequency; Urinary urgency; Burning with urination; Erythema; Chronic vulvitis; Night sweats Start: 09-04-2024 End: 09-04-2024 ambulatory RON KING Not Available Start: 08-27-2024 End: 08-27-2024 ambulatory ELICEO GÓMEZ Not Available Start: 08-26-2024 ambulatory PADMAJA LLAMAS Facility:[facility] Start: 08-07-2024 End: 08-07-2024 Office outpatient visit 40 minutes Radha Cardenas MD Work Phone: [facility]ology [facility]at[facility] Comment on above: Chronic abdominal pa in (Primary Dx); Avoidant-restrictive food intake disorder (ARFID); Bloating; Gastroparesis Start: 08-07-2024 ambulatory PADMAJA LLAMAS Facility:[facility] Start: 08-05-2024 End: 08-05-2024 ambulatory Ace Ahumada MD Facility:[facility] Start: 08-01-2024 End: 08-01-2024 Office outpatient visit 15 minutes Eliceo Gómez DO Work Phone: [facility] 230 Comment on above: Oral candidiasis (Pr imary Dx); Tongue pain Start: 08-01-2024 End: 08-01-2024 ambulatory ELICEO GÓMEZ Not Available Start: 07-26-2024 End: 07-26-2024 ambulatory [facility] Start: 07-22-2024 End: 07-22-2024 ambulatory Ace Ahumada MD Facility:[facility] Start: 07-15-2024 End: 07-15-2024 ambulatory ELICEO GÓMEZ Not Available Start: 07-11-2024 End: 07-11-2024 Bamboo flowsheet Eliceo Gómez DO Work Phone: [facility] 230 Start: 07-11-2024 End: 07-11-2024 Bamboo flowsheet Eliceo Gómez DO Work Phone: [facility] 230 Start: 07-11-2024 End: 07-11-2024 ambulatory ELICEO GÓMEZ Not Available Start: 07-11-2024 End: 07-11-2024 Office outpatient visit 15 minutes Eilceo Gómez DO Work Phone: [facility] 230 Comment on above: Soft tissue mass (Pr imary Dx); Gastro-esophageal reflux disease without esophagitis; Gastroparesis; Mild intermittent asthma, unspecified whether complicated ([facility]/HCC) Start: 07-01-2024 End: 07-01-2024 ambulatory Ace Ahumada MD Facility:[facility] Start: 06-27-2024 End: 06-27-2024 Bamboo flowsheet Sidney Amezquita DPM Work Phone: [facility] Start: 06-27-2024 End: 06-27-2024 Bamboo flowsheet Sidney Amezquita DPM Work Phone: [facility] Start: 06-27-2024 End: 06-27-2024 Patient encounter procedure Sidney Amezquita DPM Work Phone: [facility] Comment on above: Peroneal tendinitis of right lower extremity (Primary Dx); Bilateral foot pain; Exostosis of bone of foot Start: 06-27-2024 End: 06-27-2024 ambulatory SIDNEY AMEZQUITA Not Available Start: 06-17-2024 End: 06-17-2024 ambulatory Ace Ahumada MD Facility:[facility] Start: 06-14-2024 End: 06-14-2024 ambulatory CARMEN Thomas CRUZ Not Available Start: 06-12-2024 Refill Isra rios DO Work Phone: Gastroenterology Comment on above: Refill Request Start: 06-12-2024 End: 06-12-2024 ambulatory DIPTI ACEVEDO Not Available Start: 06-12-2024 End: 06-12-2024 ambulatory RON KING Not Available Start: 05-27-2024 End: 05-27-2024 ambulatory DO Shannon Gómez Work Phone: [facility] Work Phone: Start: 05-27-2024 End: 05-27-2024 Departed Referred DO Shannon Gómez Work Phone: [facility]-LAB [facility] Start: 05-14-2024 End: 05-15-2024 Refill Jose-Ramya Chavira [facility] Comment on above: Other migraine witho ut status migrainosus, not intractable (Primary Dx) Start: 04-30-2024 End: 04-30-2024 Patient encounter procedure DO Shannon Gómez Work Phone: [facility]-MRI [address] Work Phone: Start: 04-30-2024 End: 04-30-2024 ambulatory DO Shannon Gómez Work Phone: [facility] Work Phone: Start: 04-28-2024 End: 04-28-2024 ambulatory [facility] Start: 04-28-2024 End: 04-28-2024 ambulatory [facility] Start: 04-12-2024 ambulatory NA LI Facility:[facility] Start: 04-12-2024 End: 04-12-2024 Subsequent hospital visit by physician Milagros Franco MD, PhD Work Phone: [facility] [place] Comment on above: Arrived Start: 04-03-2024 End: 04-03-2024 ambulatory [facility] Start: 03-12-2024 ambulatory Flower Daniele on SWAMPER.CHEMISTRY DEPARTMENT CHAIR Work Phone: URO/Gynecology Comment on above: Estradiol vaginal cr eam Start: 03-08-2024 ambulatory SELF SELF Facility:[facility] Start: 03-06-2024 ambulatory Shannon Ramos ty:[facility] Start: 03-06-2024 ambulatory RADHA CARDENAS Facilit y:[facility] Start: 03-06-2024 ambulatory Shanonn GÓMEZ Facili ty:[facility] Start: 02-27-2024 End: 02-27-2024 ambulatory FLOWER JESSICA Facility:[facility] Start: 02-27-2024 End: 02-27-2024 Patient encounter procedure Flower Jessica SWAMPER.CHEMISTRY DEPARTMENT CHAIR Work Phone: URO/Gynecology Comment on above: Post-operative state (Primary Dx); Vaginal burning Start: 02-11-2024 End: 02-11-2024 ambulatory ELICEO GÓMEZ JR Facility:[facility] Start: 02-11-2024 End: 02-11-2024 ambulatory Lissa Doyle SWAMPER.CHEMISTRY DEPARTMENT CHAIR Work Phone: Telemedicine Comment on above: Procedure and treatm ent not carried out for other reasons (Primary Dx) Start: 02-11-2024 End: 02-11-2024 Telemedicine consultation with patient Lissa Doyle SWAMPER.CHEMISTRY DEPARTMENT CHAIR Work Phone: [facility] Start: 02-09-2024 ambulatory Pam rios MD Work Phone: URO/Gynecology Comment on above: Yeast infection Start: 02-07-2024 End: 02-07-2024 ambulatory [facility] Start: 01-27-2024 Telephone encounter Radha florez MD Work Phone: Gynecology Start: 01-26-2024 End: 01-26-2024 ambulatory ELICEO GÓMEZ JR Facility:[facility] Start: 01-25-2024 End: 01-25-2024 Telemedicine consultation with patient Nurse Member Service Representative Work Phone: [facility] Start: 01-25-2024 Encounter for other preprocedural examination [facility] Start: 01-25-2024 End: 01-25-2024 Admission to [facility] Work Phone: [facility] Start: 01-25-2024 End: 01-25-2024 ambulatory Nurse Member Service Representative Work Phone: Pre Anesthesia Comment on above: Pre-op examination ( Primary Dx); Obesity (BMI 30.0-34.9); Mild persistent asthma without complication; CHUCKIE (obstructive sleep apnea); Primary hypertension; Gastroparesis; Gastroesophageal reflux disease, unspecified whether esophagitis present Educational circumst ances (Primary Dx) Start: 01-25-2024 End: 01-25-2024 Preprocedural examination done [facility] Virtual Work Phone: [facility] Work Phone: Start: 01-10-2024 End: 01-10-2024 Postop follow up visit related to original px Cullen Dawkins MD Work Phone: [facility] [place] [facility] Comment on above: CHUCKIE (obstructive sle ep apnea) (Primary Dx) Start: 12-27-2023 Telephone encounter Cullen glover MD Work Phone: [facility] Start: 12-25-2023 ambulatory Pam rios MD Work Phone: URO/Gynecology Comment on above: Having another stimu lator besides bladder Start: 12-25-2023 Telephone encounter Pam simon MD Work Phone: Gynecology Comment on above: Question Start: 12-20-2023 End: 12-20-2023 Patient encounter procedure [facility] Comment on above: Pre-op testing (Prim tomer Dx) Start: 12-20-2023 End: 12-20-2023 Patient encounter status [facility] Start: 11-27-2023 End: 11-27-2023 ambulatory Beto Snyder Other ASSUR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 Other Start: 11-27-2023 Telephone encounter [facility] Start: 11-23-2023 End: 11-23-2023 ambulatory DO Shannon Gómez Work Phone: [facility] Work Phone: Start: 11-23-2023 End: 11-23-2023 Patient encounter procedure DO Shannon Góemz Work Phone: [facility]-Nuc Med [place] Work Phone: Start: 11-21-2023 End: 11-21-2023 ambulatory ELICEO GÓMEZ JR Facility:[facility] Start: 11-16-2023 End: 11-16-2023 ambulatory Beto Snyder Other ASSUR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 Other Start: 11-16-2023 Telephone encounter [facility] Start: 11-08-2023 Telephone encounter Emily Zamora [facility] Start: 11-03-2023 Orders Only Pauline Christensen MD Work Phone: [facility] Start: 10-26-2023 End: 10-26-2023 ambulatory Beto Steven Other ASSUR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 Other Start: 10-26-2023 Telephone encounter [facility] Start: 10-23-2023 End: 10-23-2023 ambulatory PAULINE CHRISTENSEN [facility] Start: 10-10-2023 End: 10-10-2023 ambulatory ELICEO NGTOMASA Facility:[facility] Start: 10-06-2023 End: 10-06-2023 ambulatory Beto Snyder Other ASSUR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 Other Start: 10-06-2023 Telephone encounter [facility] Start: 09-27-2023 End: 09-27-2023 ambulatory Pam Wang MD Work Phone: Urogynecology Comment on above: Worsening Start: 09-27-2023 Refill Doris Arias APRN.CNP Work Phone (unformatted): [phone] Urogynecology Comment on above: Med Change Request Start: 09-11-2023 End: 09-11-2023 ambulatory PAM WANG Facility:[facility] Start: 08-12-2023 End: 08-12-2023 Emergency department patient visit LEX SALMON [facility] Start: 08-12-2023 End: 08-12-2023 Emergency department patient visit Lex Salmon MD Work Phone: [facility] Emergency Dept Comment on above: Upper abdominal pain (Primary Dx) Start: 08-09-2023 ambulatory Mary Obrien MD Work Phone: Colorectal Surgery Comment on above: Response Start: 08-07-2023 End: 08-07-2023 ambulatory Mary Obrien MD Work Phone: Colorectal Surgery Comment on above: Colon Start: 08-01-[address] Eliceo Gómez Jr Facility: Start: 07-31-2023 End: 07-31-2023 ambulatory ELICEO GÓMEZ JR Facility:[facility] Start: 07-31-2023 End: 07-31-2023 Patient encounter procedure Nelsy Chávez HARMAN Work Phone: URO/Gynecology Comment on above: Incomplete bladder e mptying (Primary Dx); Constipation, unspecified constipation type; Urinary urgency; Urinary frequency; Nocturia Start: 07-17-2023 (Procedure) Short Beto Snyder [facility] Start: 07-17-2023 End: 07-17-2023 ambulatory eBto Snyder Other ASSUR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 Other Start: 07-12-2023 End: 07-12-2023 ambulatory Beto Snyder Other ASSUR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 Other Start: 07-12-2023 Telephone encounter [facility] Start: 06-13-2023 Office consultation new/estab patient 60 min Eliceo Gómez Work Phone: [facility] 320 DO Work Phone: Start: 06-13-[address] Dipti Anaya Facility: Start: 06-07-[address] Dipti Anaya Facility:[id number] Start: 06-05-2023 End: 06-05-2023 Emergency department patient visit DO Shannon Gómez Work Phone: [facility]-Emergency Room Work Phone: Start: 05-28-2023 ambulatory Pam rios MD Work Phone: URO/Gynecology Comment on above: Problems with urinat ing Start: 04-26-2023 End: 04-26-2023 ambulatory Beto Snyder Other ASSUR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 Other Start: 04-26-2023 Office outpatient vi sit 25 minutes Beto Snyder [facility] [place] Start: 04-11-2023 Refill Isra S Clin e DO Work Phone: Gastroenterology Comment on above: Refill Request Start: 04-04-2023 End: 04-05-[address] Isatu GÓMEZ Facility:[facility]1 Start: 03-19-2023 ambulatory Isra S Clin e DO Work Phone: Gastroenterology Comment on above: Stool sample results Start: 03-17-2023 End: 03-17-2023 ambulatory DO Shannon Gómez Work Phone: [facility] Work Phone: Start: 03-17-2023 End: 03-17-2023 Discharged Recurring DO Shannon Gómez Work Phone: [facility]-Physical Therapy [place] Work Phone: Start: 03-15-2023 Orders Only Isra [...] Start: 01-16-2023 End: 01-16-2023 Admission to establishment [facility] Start: 01-16-2023 End: 01-16-2023 ambulatory [facility] Virtual Pre Anesthesia Comment on above: Preop [...] patient Winston Kenny Brielle DO Work Phone: [facility] Start: 12-28-2022 ambulatory Yoni Tuttle MD [...] Winston Kenny Brielle DO Work Phone: [facility] Start: 12-21-2022 End: 12-22-2022 ambulatory SADE FELIX Facility:[facility] Start: 12-15-2022 End: 12-15-2022 Manual pelvic examination Mary Obrien MD Work Phone: Colorectal Surgery Comment on above: Colonic inertia (Phoebe unique Dx); Pelvic floor dysfunction; Nausea; Gastroparesis Start: 12-15-2022 End: 12-15-2022 Telemedicine consultation with patient Mary Obrien MD Work Phone: [facility] Start: 12-14-2022 ambulatory Yoni Tuttle [...] on above: Results Start: 12-05-2022 ambulatory Winston Pazi c DO Work Phone: [facility] Start: 12-02-2022 ambulatory Isra S Clin e DO Work Phone: [facility] [...] with patient Isra Masters DO Work Phone: [facility] Start: 11-24-2022 ambulatory Isra rios DO Work [...] 11-21-2022 End: 11-21-2022 Admission to establishment [facility] Work Phone: [facility] Start: 11-21-2022 End: 11-21-2022 Preprocedural examination done [facility] 2 Work Phone: Pre Anesthesia Start: 11-17-2022 ambulatory Annmarie Gillespie RN [facility]ast[facility] nterology Start: 11-17-2022 Patient encounter procedure Annmarie Gillespie RN [facility] Start: 11-17-2022 End: 11-17-2022 Subsequent hospital visit by physician Capsule Work Phone: Gastroenterology Start: 11-16-2022 ambulatory Yoni Tuttle MD Work Phone: NEUROLOGY Comment on above: The delay Start: 11-15-2022 ambulatory Yoni Tuttle MD Work Phone: NEUROLOGY Comment on above: Labs Start: 11-14-2022 End: 11-15-2022 ambulatory NIECY DURON Facility:[facility] Start: 11-10-2022 Telephone encounter Annmarie Carroll hair designer Comment on above: Preparations For Pro cedures [...] Encounter for preprocedural laboratory examination SADE FELIX [facility] Start: 10-20-2022 End: 10-20-2022 ambulatory Isra Masters [...] 10-14-2022 ambulatory DO Shannon Gómez Work Phone: [facility] Work Phone: Start: 10-14-2022 End: 10-14-2022 Discharged Recurring DO Shannon Gómez Work Phone: [facility]-Physical Therapy [place] Work Phone: Start: 10-13-2022 End: 10-14-2022 [facility] Start: 10-13-2022 End: 10-14-2022 Encounter for preprocedural laboratory examination SADE Kenny [facility] Facility:[facility]1 Start: 10-11-2022 End: 10-11-2022 ambulatory Beto Cartagena Other ASSUR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 Other Start: 10-11-2022 Telephone encounter Beto Cartagena [facility] Start: 10-11-2022 End: 10-11-2022 Patient encounter procedure Isra Masters DO Work Phone: Gastroenterology Comment on above: Gas bloat syndrome ( Primary Dx); Chronic idiopathic constipation; Gastroparesis Start: 10-10-2022 End: 10-10-2022 ambulatory Beto Cartagena Other ASSUR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 Other Start: 10-10-2022 Office outpatient ne w 30 minutes Beto Cartagena [facility] Start: 10-06-2022 End: 10-06-2022 ambulatory Beto Snyder Other ASSUR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 Other Start: 10-06-2022 Patient encounter procedure Beto Snyder [facility] [place] Start: 09-28-2022 Encounter for other preprocedural examination SADE Kenny [facility] Start: 09-28-2022 Encounter for preprocedural cardiovascular examination SADE Kenny [facility] Start: 09-26-2022 End: 09-27-2022 ambulatory SADE Kenny [facility] Facility:H1 Start: 09-22-2022 Office outpatient vi sit 25 minutes Beto Snyder [facility] [place] Start: 09-22-2022 Telephone encounter Beto Snyder [facility] [place] Start: 09-22-2022 End: 09-22-2022 ambulatory DO Shannon Gómez Work Phone: ASSUR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 Other Start: 09-22-2022 End: 09-22-2022 Patient encounter procedure DO Shannon Gómez Work Phone: [facility] Start: 09-14-2022 End: 09-14-2022 ambulatory Eliceo Szymanskileigha Other ASSUR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 Other Start: 09-14-2022 Encounter by sierra Gómez [facility] [place] Start: 09-14-2022 Office outpatient vi sit 15 minutes Beto Snyder [facility] [place] Start: 09-14-2022 Telephone encounter [facility] Start: 08-16-2022 ambulatory Mary Obrien MD Work Phone: Colorectal Surgery Comment on above: CT results Ct scan result quest ion Start: 08-16-2022 E-mail encounter kendra m caregiver Mary Obrien MD Work Phone: [facility] Start: 08-12-2022 End: 08-12-2022 Subsequent hospital visit by physician Ct Prep [facility] Radiology Start: 07-27-2022 End: 07-28-2022 ambulatory [place] [...] inertia Start: 06-08-2022 (Procedure) Short Beto Snyder [facility] Start: 06-08-2022 End: 06-08-2022 ambulatory Beto Pradeeptonia Other ASSUR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 Other Start: 05-30-2022 Refill Mary Obrien MD Work Phone: Colorectal Surgery Comment on above: Refill Request Start: 05-26-2022 End: 05-26-2022 ambulatory Beto Pradeeptonia Other ASSUR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 Other Start: 05-26-2022 Office outpatient vi sit 25 minutes Beto Snyder [facility] [place] Start: 05-12-2022 Office consultation new/estab patient 60 min Eliceo Gómez Work Phone: [facility] 250 DO Work Phone: Start: 05-10-2022 End: 05-10-2022 ambulatory Allison Lyla Other ASSUR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 Other Start: 05-10-2022 Office outpatient vi sit 15 minutes Allison Lutzault [facility] Start: 05-03-2022 Telephone encounter Mary brewer MD Work Phone: Colorectal Surgery Comment on above: Building Serviceman - O ther Start: 04-26-2022 Telephone encounter Mary brewer MD Work Phone: Colorectal Surgery Comment on above: Patient Question Start: 04-22-2022 End: 04-22-2022 Patient encounter procedure Jessi Dantemakenzie SWAMPER.CHEMISTRY DEPARTMENT CHAIR Work Phone: Colorectal Surgery Comment on above: Follow-up examinatio n after colorectal surgery (Primary Dx); Pelvic floor dysfunction Start: 04-17-2022 End: 04-17-2022 ambulatory CHASITY FREIRE . Facility: Start: 04-07-2022 Telephone encounter Rachael Kenny [facility] Department Comment on above: PostOp Follow-up Start: 03-22-2022 Telephone encounter Mary brewer MD Work Phone: Colorectal Surgery Comment on above: Patient Question Start: 03-15-2022 End: 03-15-2022 ambulatory Beto Snyder Other ASSUR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 Other Start: 03-15-2022 Office outpatient vi sit 15 minutes Beto Snyder [facility] [place] Start: 03-15-2022 Telephone encounter Mary brewer MD Work Phone: Colorectal Surgery Comment on above: Building Serviceman - O ther Medication Preauthor ization ([place] for Dexilant renewal) Outside Labs Results Start: 03-15-2022 End: 03-15-2022 Patient encounter procedure Isra Masters DO Work Phone: Gastroenterology Comment on above: Gastroesophageal ref lux disease, unspecified whether esophagitis present; Chronic idiopathic constipation Start: 03-14-2022 End: 03-14-2022 PAT [facility] 4 Work Phone: Pre Anesthesia Comment on above: Preop examination (P rimary Dx); Attention to ileostomy ([facility]); Primary hypertension; Gastroparesis; Gastroesophageal reflux disease, unspecified whether esophagitis present; Mild persistent asthma without complication; Bipolar 1 disorder ([facility]); Obesity (BMI 30.0-34.9) Start: 03-14-2022 End: 03-14-2022 Preprocedural examination done [facility] 4 Work Phone: Pre Anesthesia Start: 02-28-2022 Telephone encounter Isra Masters DO Work Phone: Gastroenterology Comment on above: Appointment (for scr ipt refill) Start: 02-18-2022 End: 02-18-2022 Patient encounter procedure Nelsy Katya QUIGLEY.CHEMISTRY DEPARTMENT CHAIR Work Phone: URO/Gynecology Comment on above: Postoperative state (Primary Dx) Start: 02-11-2022 End: 02-11-2022 ambulatory Flaca Bartholomew PT Work Phone: [facility] Start: 02-11-2022 End: 02-11-2022 Follow-up encounter Flaca Bartholomew PT Work Phone: [place] [facility] Physical Therapy Comment on above: Pelvic floor dysfunc tion (Primary Dx); Lack of coordination; Follow-up examination after colorectal surgery Start: 02-09-2022 (Procedure) Win Snyder [facility] Start: 02-09-2022 End: 02-09-2022 ambulatory Beto Snyder Other ASSUR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 Other Start: 02-08-2022 End: 02-08-2022 Patient encounter procedure Mary Obrien MD Work Phone: Colorectal Surgery Comment on above: Follow-up examinatio n after colorectal surgery (Primary Dx) Post-operative state (Primary Dx); Yeast infection of the skin Start: 02-01-2022 Refill Isra S Clin e DO Work Phone: Gastroenterology Comment on above: Refill Request (dexl ansoprazole) Start: 01-31-2022 End: 01-31-2022 ambulatory Newton Woodward PT Work Phone: [facility] Start: 01-31-2022 End: 01-31-2022 Follow-up encounter Newton Woodward PT Work Phone: [facility] Comment on above: Pelvic floor dysfunc tion (Primary Dx); Lack of coordination; Follow-up examination after colorectal surgery Start: 11-25-2021 End: 11-25-2021 ambulatory Beto Snyder Other ASSUR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 Other Start: 11-25-2021 Office outpatient vi sit 25 minutes Beto Snyder [facility] Start: 11-17-2021 End: 11-18-2021 ambulatory [facility] Start: 10-20-2021 End: 10-20-2021 ambulatory Beto Snyder Other ASSUR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 Other Start: 10-20-2021 Office outpatient vi sit 25 minutes Beto Snyder [facility] [place] Start: 10-13-2021 (Procedure) Short Beto Snyder [facility] Start: 10-13-2021 End: 10-13-2021 ambulatory Beto Snyder Other ASSUR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 Other Start: 09-06-2021 Office outpatient vi sit 25 minutes Beto Snyder [facility] [place] Start: 08-19-2021 Office outpatient vi sit 15 minutes Erica Kingston [facility] Start: 08-13-2021 Office outpatient vi sit 15 minutes Tita Daugherty [facility] Start: 08-12-2021 Office outpatient vi sit 25 minutes Beto Snyder [facility] [place] Start: 07-28-2021 Office outpatient vi sit 25 minutes Beto Snyder [facility] [place] Start: 12-25-2020 End: 12-25-2020 Subsequent hospital visit by physician Brianna Connors 1 Work Phone: Radiology Comment on above: Post-operative state [Z98.890] Start: 09-29-2020 End: 09-29-2020 Subsequent hospital visit by physician Brianna Connors 1 Work Phone: Radiology Comment on above: Pain [R52] Procedures Date Procedure Procedure Detail Performing Clinician Start: 02-25-2025 XR pre/post mri xray Shannon Gómez DO Work Phone: Start: 02-25-2025 MR thoracic spine wo con Shannon Gómez DO Work Phone: Start: 02-17-2025 Aldolase measurement Shannon Gómez DO Work Phone: Comment on above: Performed at: [address] Director: Erick Neville PhD, Phone: [phone] Start: 01-03-2025 XR FOOT RT MIN 3V Gener ic External Data Provider Start: 11-20-2024 Plain X-ray of bilat eral shoulders Shannon Gómez DO Work Phone: Start: 11-14-2024 Radionuclide gastric emptying study Shannon Gómez DO Work Phone: Start: 11-04-2024 Follow-up visit Follow-up MERISSA DELAROSA Start: 10-24-2024 Colposcopy of vulva Shannon Szymanskileigha DO Work Phone: Start: 10-10-2024 XR pre/post mri xray Shannon Gómez DO Work Phone: Start: 10-10-2024 MRI of cervical spin e without contrast Shannon Ngtomasa DO Work Phone: Start: 10-10-2024 MR lumbar spine wo con Shannon Gómez DO Work Phone: Start: 09-04-2024 Urnls dip stick/tabl et rgnt non-auto w/o micrscp Dipti Zoya Mookie DO Work Phone: Start: 07-26-2024 Follow-up visit Follow-up PAULINE HOUSTON Start: 04-30-2024 MRI of right ankle DO Isatu Szymanskijerometomasa Work Phone: Start: 04-12-2024 DIAGNOSTIC UPPER ENDOSCOPY Padmaja Llamas MD, PhD Work Phone: Start: 02-27-2024 BACTERIAL VAGINOSIS NAAT Flower Lopez SWAMPER.CHEMISTRY DEPARTMENT CHAIR Work Phone: Start: 02-27-2024 Iadna trichomonas vaginalis amplified probe tech Flower Lopez SWAMPER.CHEMISTRY DEPARTMENT CHAIR Work Phone: Start: 02-27-2024 Urnls dip stick/tabl et rgnt auto w/o microscopy Flower Lopez SWAMPER.CHEMISTRY DEPARTMENT CHAIR Work Phone: Start: 12-20-2023 Basic metabolic pane [...] Assay of troponin quantitative Lev Ritter APRN CHEMISTRY DEPARTMENT CHAIR Work Phone: Start: 08-12-2023 Ct abdomen & pelvis w/contrast material Lev Ritter APRN CHEMISTRY DEPARTMENT CHAIR Work Phone: Start: 08-12-2023 Urnls dip stick/tabl et reagent auto microscopy Lex Salmon MD Work Phone: Start: 08-12-2023 Basic metabolic pane l calcium total Lex Salmon MD Work Phone: Start: 08-12-2023 DARK GREEN TOP Lex buitrago MD Work Phone: Start: 08-12-2023 GOLD TOP Lex bacon MD Work Phone: Start: 08-12-2023 Hepatic function panel Lev Ritter SWAMPER CHEMISTRY DEPARTMENT CHAIR Work Phone: Start: 08-12-2023 LIGHT BLUE TOP Lex buitrago MD Work Phone: Start: 08-12-2023 RAINBOW DRAW Lex bacon MD Work Phone: Start: 08-12-2023 Urine test visual color cmprsn meths Lex Salmon MD Work Phone: Start: 08-12-2023 Ecg routine ecg w/le ast 12 lds trcg only w/o i&r Lex Salmon MD Work Phone: Start: 07-31-2023 Urnls dip stick/tabl et rgnt auto w/o microscopy Nelsy Katya SWAMPER.CHEMISTRY DEPARTMENT CHAIR Work Phone: Start: 06-05-2023 Plain chest X-ray DO Shannon Lugo Stephonleigha Work Phone: Start: 05-23-2023 H/O: artificial joint Presence of right artificial ankle joint Sidney Amezquita DPM Work Phone: Start: 03-02-2023 Aerobic microbial culture DO Shannon Lugo Stephonleigha Work Phone: Start: 12-26-2022 Radiologic exam esop hagus single contrast study Winston Hannah DO Work Phone: Start: 09-22-2022 Plain X-ray of bilat eral shoulders DO Shannon Lugo Stephonleigha Work Phone: Start: 09-22-2022 X-ray of both knees DO Shannon Parish Gómez Work Phone: Start: 09-14-2022 Mammography Lex rincon MD Work Phone: Start: 03-02-2022 Lipid 1996 panel - S jay or Plasma Nelsy Katya SWAMPER.CHEMISTRY DEPARTMENT CHAIR Work Phone: Start: 02-08-2022 Urnls dip stick/tabl et rgnt auto w/o microscopy Magali Mitchell SWAMPER.CHEMISTRY DEPARTMENT CHAIR Work Phone: Start: 12-16-2021 Antibody screen Comment on above: Performed By: #### T [id number] ####[phone] Start: 10-15-2021 Antibody screen Comment on above: Performed By: #### T SCR30 ####[phone] Start: 06-28-2021 Mammography Mary brewer MD Work Phone: Start: 02-18-2021 End: 06-23-2025 H/O: surgery S/P nasal septoplasty Sidney Amezquita DP M Work Phone: Start: 02-18-2021 History of tonsillectomy S/P tonsill ectomy Sidney MERCADOM Work Phone: Start: 12-25-2020 Radex shoulder compl [...] DTAP/TDAP/TD VACCINE (2 - Td or Tdap) [facility] Start: 06-22-2030 DTaP,Tdap and Td Vaccines (2 - Td or Tdap) DTaP,Tdap and Td Vaccines (2 - Td or Tdap) [facility] Start: 06-22-2030 Tetanus vaccination TETANUS [facility] Start: 06-22-2030 Urine microalbumin profile DTaP,Tdap,Td Vaccine (2 - T d or Tdap) [facility] Start: 11-01-2028 Lipid panel Lipid Screening [facility] Start: 12-05-2027 COLORECTAL CANCER SCREENING COLORECTAL CANCER SCREENING [facility] Start: 12-05-2027 Screening for malignant neoplasm of colon [facility] Start: 12-05-2027 SIGMOIDOSCOPY SIGMOIDOSCOPY [facility] Start: 03-02-2027 Lipid 1996 panel - Serum or Plasma Lipid Screening [facility] Start: 03-02-2027 LIPID SCREEN LIPID SCREEN [facility] Start: 12-20-2026 Diabetes Screening Diabetes Screening [facility] Start: 08-12-2026 Diabetes Screening Diabetes Screening [facility] Start: 06-06-2026 Adult BMI Screening Adult BMI Screening [facility] Start: 06-06-2026 Tobacco Screening Tobacco Screening [facility] Start: 01-20-2026 Medicare Annual Wellness (AWV) Medicare Annual Wellness (AWV) [facility] Start: 11-20-2025 End: 11-20-2025 Patient encounter procedure [facility] M Start: 08-19-2025 End: 08-19-2025 Patient encounter procedure 08/19/2025 3:30 PM EDT Office Visit [facility] Neurology, A Department of [facility] [address] [facility] [address] [place] [phone] Pauline Christensen MD [address] [facility] [address] [place] [address] [facility], A Department of [facility] Start: 07-09-2025 End: 07-09-2025 Patient encounter procedure 07/09/2025 3:00 PM EDT [facility] [address] [place] [address] Chantale Sweet PA [address] [place] [address] [facility] Start: 07-07-2025 Influenza vaccination Influenza Vaccine [facility] Start: 06-27-2025 End: 06-27-2025 Admission to same day surgery center 06/27/2025 3:30 PM EDT - 06/27/2025 4:00 PM EDT Surgery [facility] [place] [facility] [address] [facility] [place] [address] Alberto Solis MD [address] [facility], [facility] [address] [place] [address] ESOPHAGOGASTRODUODENOSCOPY DILATATION [facility] [place] [facility] Comment on above: ESOPHAGOGASTRODUODENOSCOPY DILATATION Start: 06-27-2025 End: 06-27-2025 ESOPHAGOGASTRODUODENOSCOPY DILATATION ESOPHAGOGASTRODUODENOSCOPY DILATATION esophageal dysphagia 06/27/2025 3:30 PM EDT [facility] Start: 06-27-2025 Subsequent hospital visit by physician 06/27/2025 3:30 PM EDT Hospital Encounter [facility] [place] [facility] [address] [facility] [place] [address] Alberto Solis MD [address] [facility] [address] [place] [address] [facility] [place] [facility] Start: 06-24-2025 End: 08-24-2026 DBT Breast - bilateral screening Bilateral screening mammogram with tomosynthesis Imaging Routine Breast cancer screening by mammogram Expected: 06/24/2025, Expires: 08/24/2026 [facility] Comment on above: Expected: 06/24/2025, Expires: Start: 06-24-2025 End: 06-24-2025 Patient encounter procedure 06/24/2025 9:00 AM EDT Office Visit [facility] [address] [place] [address] Dipti Acevedo, [address] [place] [address] [facility] MARTINE[facility] Start: 06-17-2025 End: 06-17-2025 Patient encounter procedure 06/17/2025 8:15 AM EDT Office Visit [facility], A Department of [address] [place] [address] Soraida Gama PA [address] [facility]. [address] [place] [address] [facility], A Department of [facility] Start: 06-06-2025 End: 06-06-2025 Patient encounter procedure 06/06/2025 9:00 AM EDT Office Visit [facility], A Department of [address] [place] [address] Vicki Roche, DO [address] [facility] [place] [address] Alberto Solis MD [address] [facility] [address] [place] [address] [facility], A Department of [facility] Start: 04-30-2025 End: 04-30-2025 Patient encounter procedure 04/30/2025 4:00 PM EDT Procedure Visit [facility] ESCALANTEEVUE [address] [place] [address] Salma Galeas DO [address] [place] [address] CHUYITA TOBIN Start: 04-05-2025 DIABETES SCREEN DIABETES SCREEN [facility] Start: 04-05-2025 Diabetes Screening Diabetes Screening [facility] Start: 03-14-2025 DIABETES SCREEN DIABETES SCREEN [facility] Start: 03-14-2025 Medicare Annual Wellness (AWV) Medicare Annual Wellness (AWV) [facility] Start: 02-17-2025 Aldolase measurement [facility] Start: 01-20-2025 End: 01-20-2025 Patient encounter procedure 01/20/2025 1:00 PM EDT Office Visit [facility] [address] [place] [phone] Elcieo Gómez DO [address] [place] [address] Bipolar disorder, current episode depressed, moderate (CMS/HCC) [facility] Comment on above: Bipolar disorder, current episode depres sed, moderate (CMS/HCC) Start: 01-09-2025 Adult BMI Screening Adult BMI Screening [facility] Start: 01-09-2025 Tobacco Screening Tobacco Screening [facility] Start: 12-26-2024 DIABETES SCREEN DIABETES SCREEN [facility] Start: 12-20-2024 Adult BMI Screening Adult BMI Screening [facility] Start: 12-20-2024 Tobacco Screening Tobacco Screening [facility] Start: 12-16-2024 Aldolase measurement [facility] Start: 12-16-2024 Hemolytic complement CH50 level [facility] Start: 12-16-2024 [facility] Start: 11-20-2024 Patient referral [facility] Work Phone: Start: 11-19-2024 End: 11-19-2024 Patient encounter procedure [facility]N M Comment on above: Arrived Start: 11-12-2024 End: 11-12-2024 Patient encounter procedure 11/12/2024 8:30 AM EST Office Visit [facility] [address] [place] [address] Dipti Acevedo, [address] [place] [address] [facility] Start: 11-11-2024 End: 11-11-2024 Patient encounter procedure 11/11/2024 9:20 AM EST Office Visit [facility] [address] [place] [address] Nelsy Snyder, SWAMPER-CHEMISTRY DEPARTMENT CHAIR [address] [place], [place] [phone] [facility] Start: 11-04-2024 End: 11-04-2024 Telemedicine consultation with patient 11/04/2024 2:00 PM EST Telemedicine [facility] [address] [place] [address] Merissa Delarosa, RD [address] [place] [address] [address] [place] [phone] [facility] [place] Start: 11-01-2024 End: 11-01-2024 Professional / ancillary services management 11/01/2024 11:00 AM EST Ancillary Procedure [facility] [place] [address] [place] [address] [facility] [place] Start: 11-01-2024 End: 11-01-2024 Patient encounter procedure [facility] Comment on above: Aftercare following surgery Start: 10-31-2024 Screening for malignant neoplasm of breast [facility] Start: 10-28-2024 End: 10-28-2024 Telemedicine consultation with patient 10/28/2024 9:00 AM EST Telemedicine [facility] [place] [address] [facility] [address] [place] [address] Lissa Lou, RD [address] [facility] [facility] [address] [place] [phone] [facility] Start: 10-24-2024 [facility] Start: 10-24-2024 [facility] Start: 10-23-2024 Adult BMI Screening Adult BMI Screening [facility] Start: 10-23-2024 Depression Screening Depression Screening [facility] Start: 10-23-2024 End: 10-23-2025 FECAL FAT,QUANTITATIVE FECAL FAT,QUANTITATIVE Fluids Routine Chronic diarrhea Expected: 10/23/2024, Expires: 10/23/2025 [facility] Comment on above: Expected: 10/23/2024, Expires: Start: 10-23-2024 End: 10-23-2025 NM Stomach Views for gastric emptying W [id number] SC PO NUC GASTRIC EMPTYING Imaging Routine Bloating Gastroparesis Expected: 10/23/2024, Expires: 10/23/2025 [facility] Comment on above: Expected: 10/23/2024, Expires: 5 Start: 10-23-2024 End: 10-23-2025 PANCREATIC ELASTASE, STOOL PANCREATIC ELASTASE, STOOL Fluids Routine Chronic diarrhea Expected: 10/23/2024, Expires: 10/23/2025 [facility] Comment on above: Expected: 10/23/2024, Expires: 5 Start: 10-23-2024 Tobacco Screening Tobacco Screening [facility] Start: 10-10-2024 BP Controlled (<130/80) BP Controlled (<130/80) [facility] Start: 07-12-2024 End: 07-12-2024 Professional / ancillary services management 07/12/2024 1:30 PM EDT Ancillary Procedure [facility] [address] [place] [address] [facility] Start: 07-11-2024 End: 07-11-2025 US Soft Tissue Palpable Mass US Soft Tissue Palpable M ass Imaging Routine Soft tissue mass Expected: 07/11/2024, Expires: 07/11/2025 [facility] Work Phone: Comment on above: Expected: 07/11/2024, Expires: Start: 07-07-2024 COVID-19 VACCINE ( season) COVID-19 VACCINE () [facility] Start: 07-07-2024 Covid-19 Vaccine () Covid-19 Vaccine () [facility] Start: 07-07-2024 Influenza vaccination [facility] Start: 06-27-2024 End: 06-27-2024 Patient encounter procedure 06/27/2024 9:45 AM EDT Office Visit [facility] [address] [place] [address] Sidney Amezquita DPM [address] [place] [address] Arrived [facility] Comment on above: Arrived Start: 05-31-2024 Administration of varicella zoster vaccine Zoster (Shingles) Vaccine (2 of 2) [facility] Start: 05-31-2024 Zoster vaccine hzv live for subcutaneous use ZOSTER (SHINGLES) VACCINE (2 of 2) [facility] Start: 04-18-2024 End: 04-18-2024 Patient encounter procedure 04/18/2024 1:30 PM EDT [facility] [address] [place] [address] [place] [address] [place] [address], [address] [place] [phone] [facility] Start: 01-10-2024 End: 01-10-2024 Patient encounter procedure 01/10/2024 12:45 PM EST Office Visit [facility] [place] [facility] E[facility] [address] [place] [address], [address] [place] [phone] Cullen Dawkins MD [address] [place] [address] [address] [place] [address] [facility] [place] [facility] Start: 01-02-2024 End: 01-02-2024 Admission to same day surgery center 01/02/2024 11:00 AM EST - 01/02/2024 3:30 PM EST Surgery [facility] Surgery [address] [place] [address] Cullen Dawkins MD [address] [place] [address] [address] [place] [address] INSERTION STIMULATOR NERVE HYPOGLOSSAL [[id number] (CPT )] [facility] Comment on above: INSERTION STIMULATOR NERVE HYPOGLOSSAL [ [id number] (CPT )] Start: 01-02-2024 End: 01-02-2024 INSERTION STIMULATOR NERVE HYPOGLOSSAL INSERTION STIMULATOR NERVE HYPOGLOSSAL CHUCKIE (obstructive sleep apnea) 01/02/2024 11:00 AM EST [facility] Start: 01-02-2024 Subsequent hospital visit by physician 01/02/2024 11:00 AM EST Hospital Encounter [facility] Surgery [address] [place] [address] Cullen Dawkins MD [address] [place] [address] [address] [place] [address] [facility] - Surgery Start: 11-06-2023 Behavioral Health Screening Behavioral Health Screening [facility] Start: 11-06-2023 Depression Assessment Depression Assessment [facility] Start: 09-27-2023 End: 12-27-2023 Bacteria identified in Urine by Culture URINE CULTURE Microbiology Routine Burning with urination Expected: 09/27/2023, Expires: 12/27/2023 [facility] Work Phone: Comment on above: Expected: 09/27/2023, Expires: Start: 09-14-2023 Screening for malignant neoplasm of breast MAMMOGRAM [facility] Start: 08-01-2023 FUV, Provider: Dipti Anaya, Status: Pen, Time: 11:00 AM FUV, Provider: Dipti Anaya, Status: Pen, Time: 11:00 AM [facility] [address] DO Work Phone: Start: 07-07-2023 Covid-19 Vaccine ( season) Covid-19 Vaccine ( season) [facility] Start: 07-07-2023 Influenza vaccination [facility] Start: 07-07-2023 Influenza vaccination given INFLUENZA VACCINE (#1) [facility] Start: 06-05-2023 [facility] Start: 04-22-2023 BP CONTROLLED (<130/80) BP CONTROLLED (<130/80) [facility] Start: 03-14-2023 BP CONTROLLED (<130/80) BP CONTROLLED (<130/80) [facility] Start: 02-18-2023 BP CONTROLLED (<130/80) BP CONTROLLED (<130/80) [facility] Start: 02-08-2023 BP CONTROLLED (<130/80) BP CONTROLLED (<130/80) [facility] Start: 01-18-2023 BP CONTROLLED (<130/80) BP CONTROLLED (<130/80) [facility] Start: 11-06-2022 DEPRESSION ASSESSMENT DEPRESSION ASSESSMENT [facility] Start: 09-22-2022 [facility] Start: 08-02-2022 End: 08-25-2023 Ct abdomen & pelvis w/contrast material CT ABD/PEL W IVCON Radiology Routine Periumbilical abdominal pain Expected: 08/02/2022, Expires: 08/25/2023 [facility] Work Phone: Comment on above: Expected: 08/02/2022, Expires: 3 Start: 07-07-2022 Influenza vaccination [facility] Start: 06-28-2022 Mammography [facility] Start: 2022 Administration of varicella zoster vaccine Zoster (Shingles) Vaccine (1 of 2) [facility] Start: 2022 COVID-19 VACCINE (4 - Booster for Pfizer series) COVID-19 VACCINE (4 - Booster for Pfizer series) [facility] Start: 2022 SHINGRIX VACCINE (1 of 2) SHINGRIX VACCINE (1 of 2) [facility] Start: 2022 Zoster vaccine hzv live for subcutaneous use ZOSTER (SHINGLES) VACCINE (1 of 2) [facility] Start: 04-01-2022 End: 06-01-2022 CBC W Auto Differential panel - Blood CBC + DIFF Lab Routine Follow-up examination after colorectal surgery Expected: 04/01/2022, Expires: 06/01/2022 [facility] Work Phone: Comment on above: Expected: 04/01/2022, Expires: 2 Start: 04-01-2022 End: 06-01-2022 Comprehensive metabolic 2000 panel - Serum or Plasma COMP METABOLIC PANEL Lab Routine Follow-up examination after colorectal surgery Expected: 04/01/2022, Expires: 06/01/2022 [facility] Work Phone: Comment on above: Expected: 04/01/2022, Expires: 2 Start: 04-01-2022 End: 06-01-2022 TYPE AND SCREEN,30 DAY TYPE AND SCREEN,30 DAY Blood Bank Routine Follow-up examination after colorectal surgery Expected: 04/01/2022, Expires: 06/01/2022 [facility] Work Phone: Comment on above: Expected: 04/01/2022, Expires: 2 Start: 01-19-2022 COVID-19 VACCINE (4 - Booster for Pfizer series) COVID-19 VACCINE (4 - Booster for Pfizer series) [facility] Start: 01-19-2022 COVID-19 VACCINE (4 - Pfizer series) COVID-19 VACCINE (4 - Pfizer series) [facility] Start: 11-06-2021 DEPRESSION ASSESSMENT DEPRESSION ASSESSMENT [facility] Start: 07-07-2021 Influenza vaccination INFLUENZA (#1) [facility] Start: 03-24-2021 Screening for malignant neoplasm of colon COLORECTAL CANCER SCREENING DISCUSSION [facility] Start: 04-05-2020 Screening for malignant neoplasm of breast MAMMOGRAM SCREENING DISCUSSION [facility] Start: 2017 COLOGUARD (FIT-DNA) COLOGUARD (FIT-DNA) [facility] Start: 2017 Colonoscopy COLONOSCOPY [facility] Start: 2017 COLORECTAL CANCER SCREENING COLORECTAL CANCER SCREENING [facility] Start: [address] COLONOGRAPHY [facility] Start: 2017 FECAL OCCULT BLOOD FECAL OCCULT BLOOD [facility] Start: 2017 LIPID SCREEN LIPID SCREEN [facility] Start: 2017 Screening for malignant neoplasm of colon [facility] Start: 2017 SIGMOIDOSCOPY SIGMOIDOSCOPY [facility] Start: 2012 Lipid panel LIPID SCREENING [facility] Start: 2012 Mammography MAMMOGRAM [facility] Start: 10-11-2008 Hepatitis B vaccination HEP B VACCINE (3 of 3 - 19+ 3-dose series) [facility] Start: 10-11-2008 Hepatitis B Vaccine (3 of 3 - 19+ 3-dose series) Hepatitis B Vaccine (3 of 3 - 19+ 3-dose series) [facility] Start: 2002 HPV TESTING HPV TESTING [facility] Start: 2002 Screening for malignant neoplasm of cervix HPV Testing [facility] Start: 1993 PAP TESTING PAP TESTING [facility] Start: 1993 Screening for malignant neoplasm of cervix [facility] Start: [address] [facility] Start: 1990 Adult BMI Follow Up Plan Adult BMI Follow Up Plan [facility] Start: 1990 ANNUAL PCP TEAM CHRONIC DISEASE VISIT ANNUAL PCP TEAM CHRONIC DISEASE VISIT [facility] Start: 1990 ANNUAL WELLNESS VISIT ANNUAL WELLNESS VISIT [facility] Start: 1990 Anxiety Screening Anxiety Screening [facility] Start: 1990 BP CONTROLLED (<130/80) BP CONTROLLED (<130/80) [facility] Start: 1990 Depression Screening Depression Screening [facility] Start: 1990 HEPATITIS C SCREENING HEPATITIS C SCREENING [facility] Start: 1990 Hepatitis C screening Hepatitis C Screening [facility] Start: 1990 HIV SCREENING HIV SCREENING [facility] Start: 1990 HIV screening HIV Screening [facility] Start: 1987 HIV screening HIV SCREENING DISCUSSION [facility] Start: 1984 Adult depression screening assessment DEPRESSION SCREENING [facility] Start: 1984 Depression screening using PHQ-9 (Patient Health Questionnaire 9) score DEPRESSION SCREENING [facility] Start: 1978 PNEUMOCOCCAL (1 - PCV) PNEUMOCOCCAL (1 - PCV) [facility] Start: 1978 Pneumococcal vaccination Pneumococcal Vaccine (1 - PCV) [facility] Start: 1972 HEPATITIS B (1 of 3 - 3-dose series) HEPATITIS B (1 of 3 - 3-dose series) [facility] Start: 1972 Hepatitis B Vaccine (1 of 3 - 3-dose series) Hepatitis B Vaccine (1 of 3 - 3-dose series) [facility] Start: 1972 Hepatitis C screening HEPATITIS C VIRUS SCREENING [facility] Start: 1972 HPV/COTEST HPV/COTEST [facility] Start: 1972 Screening for malignant neoplasm of cervix [facility] 12 lead ECG EKG 12 lead ECG REYNA 08/12/2023 12:28 AM EDT [facility] Work Phone: 24 hour urine measurement [facility] Albumin [Mass/volume ] in Serum or Plasma [facility] Albumin/Globulin ratio [facility] Chromatin Ab [Units/ volume] in Serum or Plasma [facility] Complement C3 [Mass/ volume] in Serum or Plasma [facility] Complement C4 [Mass/ volume] in Serum or Plasma [facility] CT Abdomen and Pelvi s W contrast IV CT Abdomen / Pelvis With IV Contrast ONLY Imaging STAT 08/12/2023 5:42 AM EDT [facility] End: 01-12-2024 EGD - THERAPEUTIC, EUS, OR TUBE INTERVENTIONS EGD - THERAPEUTIC, EUS, OR TUBE INTERVENTIONS Endoscopy Routine Gastroparesis 1 Occurrences starting 01/11/2023 until 01/12/2024 [facility] Work Phone: Comment on above: 1 Occurrences starting 01/11/2023 until 01/12/2024 End: 06-06-2026 EGD w/ Dilation EGD w/ Dilation GI Routine Esophageal dysphagia 1 Occurrences starting 06/06/2025 until 06/06/2026 [facility] Work Phone: Comment on above: 1 Occurrences starting 06/06/2025 until 06/06/2026 Electromyography [facility] Electrophoresis: [id number] [facility] Electrophoresis: [id number] [facility] Electrophoresis: beta-globulin [facility] Electrophoresis: jenifer ma globulin [facility] FAT, FECAL QUAL FAT, FECAL QUAL Lab Routine Diarrhea due to malabsorption Ordered: 03/15/2023 [facility] Work Phone: Comment on above: Ordered: 03/15/2023 End: 10-11-2023 Gi transit & pres ravinder wireless capsule w/interp CAPSULE ENDOSCOPY SMART Endoscopy Routine Gastroparesis 1 Occurrences starting 10/11/2022 until 10/11/2023 [facility] Work Phone: Comment on above: 1 Occurrences starting 10/11/2022 until 10/11/2023 Globulin [Mass/volum e] in Serum [facility] Homogenous nuclear A b pattern [Titer] in Serum [facility] Hydrogen breath test HYDROGEN (H 2) BREATH TEST GI/Bronch Routine Chronic abdominal pain Bloating Ordered: 08/09/2024 [facility] Comment on above: Ordered: 08/09/2024 IgA [Mass/volume] in Serum or Plasma [facility] IgG [Mass/volume] in Serum or Plasma [facility] IgM [Mass/volume] in Serum or Plasma [facility] IGP,rfxAptima HPV all,16/18,45 IGP,rfxAptima HPV all,16/18,45 Pathology and Cytology Routine Encounter for Papanicolaou smear of vagina Ordered: 06/24/2025 [facility] Work Phone: Comment on above: Ordered: 06/24/2025 Immunofixation for Urine Fir [facility] Lupus anticoagulant [Interpretation] in Platelet poor plasma [facility] Measurement of monoc lonal protein concentration [facility] MR Cervical spine WO contrast [facility] Myoglobin [Mass/volu me] in Serum or Plasma [facility] Nuclear Ab [Titer] in Serum [facility] End: 12-17-2023 PAP TITRATION PSG (CPAP, BIPAP, ASV) PAP TITRATION PSG (CPAP, BIPAP, ASV) Procedures Routine CHUCKIE (obstructive sleep apnea) 1 Occurrences starting 11/17/2022 until 12/17/2023 [facility] Work Phone: Comment on above: 1 Occurrences starting 11/17/2022 until 12/17/2023 Patient Education [facility] Work Phone: Patient referral [facility] Work Phone: Protein [Mass/volume ] in Serum or Plasma [facility] Protein [Mass/volume ] in Urine [facility] Reagin Ab [Presence] in Serum by RPR [facility] SARS-CoV-2 (COVID-19 ) RNA [Presence] in Respiratory specimen by JOSÉ MIGUEL with probe detection SELF CHECK COVID Microbiology Routine Follow-up examination after colorectal surgery Ordered: 02/09/2022 [facility] Work Phone: Comment on above: Ordered: 02/09/2022 Serum immunofixation [facility] End: 11-30-2023 SIGMOIDOSCOPY SIGMOIDOSCOPY Endoscopy Routine Chronic idiopathic constipation 1 Occurrences starting 11/30/2022 until 11/30/2023 [facility] Work Phone: Comment on above: 1 Occurrences starting 11/30/2022 until 11/30/2023 SURG PATH REQUEST [facility] Comment on above: Release Upon Ordering for 1 Occurrences starting 04/12/2024, 1 completed Thrombin time [facility] Thyroglobulin Ab [Units/volume] in Serum or Plasma [facility] Thyroperoxidase Ab [Units/volume] in Serum or Plasma [facility] End: 08-12-2023 Troponin I.cardiac [Mass/volume] in Serum or Plasma Troponin I (One time) Lab Timed Once for 1 Occurrences starting 08/12/2023 until 08/12/2023 [facility] Work Phone: Comment on above: Once for 1 Occurrences starting 08/12/20 until 08/12/2023 URODYNAMICS I URODYNAMICS [facility] Procedures Routine Incomplete bladder emptying Urinary urgency Urinary frequency Nocturia Ordered: 07/31/2023 [facility] Work Phone: Comment on above: Ordered: 07/31/2023 XR Shoulder - bilateral Views [facility] Immunizations Immunization Date Immunization Notes Care Provider Fa [facility] 12-11-2024 influenza virus vaccine, unspecified formulation Joanna [facility] 07-01-2024 influenza, injectabl e, madin cynthia canine kidney, preservative free Eliceo Gómez DO Work Phone: [facility] 05-21-2024 Hepatitis B vaccine (recombinant), CpG adjuvanted Sidney Amezquita DPM Work Phone: [facility] 05-21-2024 meningococcal oligosaccharide (groups A, C, Y and W-135) diphtheria toxoid conjugate vaccine (MCV4O) Sidney Amezquita DPM Work Phone: [facility] 04-05-2024 zoster vaccine recombinant Sidney Amezquita DPM Work Phone: [facility] 04-05-2024 zoster vaccine, unspecified formulation Milagros Franco MD, PhD Work Phone: [facility] 12-21-2023 Influenza, injectabl e, Madin Flint Canine Kidney, preservative free, quadrivalent Sidney Amezquita DPM Work Phone: [facility] 12-21-2023 influenza virus vaccine, unspecified formulation [facility] 08-17-2022 influenza, injectabl e, quadrivalent, preservative free Sidney Amezquita DPM Work Phone: [facility] 08-17-2022 influenza virus vaccine, unspecified formulation Nelsy Chávez APRN.CHEMISTRY DEPARTMENT CHAIR Work Phone: [facility] 11-24-2021 Pfizer-BioNTech COVID-19 Vacc 30 MCG/0.3ML Intramuscular Suspension Eliceo Gómez Work Phone: [facility] 250 DO Work Phone: 08-19-2021 KENALOG - 10 mg Ericahero Church d Other ASSUR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 Other 05-11-2021 Pfizer-BioNTech COVID-19 Vacc 30 MCG/0.3ML Intramuscular Suspension Eliceo Gómez Work Phone: [facility] 250 DO Work Phone: 05-10-2021 Pfizer Purple Cap SARS-CoV-2 Vaccination Sidney Amezquita DPM Work Phone: [facility] 04-20-2021 Pfizer-BioNTech COVID-19 Vacc 30 MCG/0.3ML Intramuscular Suspension Eliceo Gómez Work Phone: [facility] 250 DO Work Phone: 04-19-2021 Pfizer Purple Cap SARS-CoV-2 Vaccination Sidney Amezquita DPM Work Phone: [facility] 09-02-2020 influenza, injectabl e, quadrivalent, preservative free Eliceo [facility]z [facility] DO Work Phone: 08-06-2020 influenza, injectabl e, quadrivalent, preservative free Eliceo Ngan Work Phone: [facility] 06-22-2020 tetanus toxoid, redu nayeli diphtheria toxoid, and acellular pertussis vaccine, adsorbed Eliceo Ngan Work Phone[facility] DO Work Phone: 02-01-2020 Toradol per 15 mg Beto turpin Other ASSUR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 Other 08-20-2019 influenza, injectabl e, quadrivalent, preservative free Sidney Amezquita DPM Work Phone: [facility] 07-15-2018 influenza, seasonal, injectable, preservative free Eliceo Gómez Work Phone: [facility] [employer] 250 DO Work Phone: 07-14-2016 Rocephin 500 mg Beto ellis Other ASSUR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 Other 05-12-2008 hepatitis B vaccine, adult dosage Eliceo R Stephonftan Work Phone: [facility] [employer] 250 DO Work Phone: 04-11-2008 hepatitis B vaccine, adult dosage Eliceo R Stephonftan Work Phone: [facility] [employer] 250 DO Work Phone: Payers Date Payer Category Payer Commercial [facility] Care - O PARAMOUNT [id number] 2024 Managed Care HMO (unspecified) [place] HMO [id number] 2024 Unknown [id number] 2024 Medicare HMO [employer]ICARE [id number] 2024 Private Health Insurance [id number] 2024 Medicare [id number]. 1.13.172. [id number] 2024 Medicare (Managed Care) [id number] [id number] 2024 Medicare [id number] 2024 Private Health Insurance [id number] 2024 Private Health Insurance [id number]. [id number] 2024 Self-pay [id number] 2024 Unknown 2022 Medicaid O [place] MEDICAID [id number] [id number] 2021 Medicaid PARAMOUNT MEDICA ID PARAMOUNT ADVANTAGE MEDICAID [id number] 2021-Present [phone] [address] [place] [address] Medicaid [id number]. [id number] 2019 Medicaid 1.2.840.249130. 1.13.159. 2.7.3.391829.315 1972 Unknown [id number] 2.16.840.1.844125.3.579. 2.176 1972 Unknown [id number] 2.16.840.1.164247.3.579. 2.593 1972 Unknown [id number] 2.16.840.1.750050.3.579. 2.593 1972 Unknown [id number] 2.16.840.1.938198.3.579. 2.593 1972 Unknown [id number] 2.16.840.1.017940.3.579. 2.593 1972 Unknown [id number] 2.16.840.1.646742.3.579. 2.593 1972 Unknown [id number] 2.16.840.1.599044.3.579. 2.593 1972 Unknown [id number] 2.16.840.1.093882.3.579. 2.59 1972 Unknown [id number] 2.16.840.1.075858.3.579. 2.593 1972 Unknown [id number] 2.16.840.1.649978.3.579. 2.3 1972 Unknown [id number] 2.16.840.1.758353.3.579. 2.593 1972 Unknown [id number] 2.16.840.1.991255.3.579. 2. 1972 Unknown [id number] 2.16.840.1.382457.3.579. 2.593 1972 Unknown [id number] 2.16.840.1.111687.3.579. 2.593 1972 Unknown [id number] 2.16.840.1.927273.3.579. 2.593 1972 Unknown [id number] 2.16.840.1.088220.3.579. 2.593 1972 Unknown [id number] 2.16.840.1.986801.3.579. 2.593 1972 Unknown [id number] 2.16.840.1.258395.3.579. 2.593 1972 Unknown [id number] 2.16.840.1.802999.3.579. 2.297 1972 Unknown [id number] 2.16840.1.456753.3.579. 2.297 1972 Unknown [id number] 2.16840.1.447845.3.579. 2.356 1972 Unknown [id number] 2.840.1.337920.3.579. 2.356 1972 Unknown [id number] 2.840.1.564981.3.579. 2.356 1972 Unknown [id number] 2.840.1.484564.3.579. 2.1286 1972 Unknown [id number] 2.840.1.498654.3.579. 2.594 1972 Unknown [id number] 2.840.1.135898.3.579. 2.594 1972 Unknown [id number] 2.840.1.359135.3.579. 2.594 1972 Unknown [id number] 2.840.1.076651.3.579. 2.594 1972 Unknown [id number] 2.840.1.022621.3.579. 2.594 1972 Unknown [id number] .840.1.533219.3.579. 2.594 1972 Unknown [id number] 2.840.1.126440.3.579. 2.594 1972 Unknown [id number] 2.840.1.190649.3.579. 2.594 1972 Unknown [id number] 2.840.1.855039.3.579. 2.594 1972 Unknown [id number] 2.840.1.858047.3.579. 2.594 1972 Unknown [id number] 2.16.840.1.471772.3.579. 2.1286 1972 Unknown [id number] 2.16.840.1.184628.3.579. 2.1285 1972 Unknown [id number] 2.16.840.1.606497.3.579. 2.1285 1972 Unknown [id number] 2.16.840.1.366734.3.579. 2.196 1972 Unknown [id number] 2.16.840.1.565640.3.579. 2.196 1972 Unknown [id number] 2.16.840.1.004408.3.579. 2.196 1972 Unknown [id number] 2.16.840.1.922108.3.579. 2. 1972 Unknown [id number] 2.16.840.1.952614.3.579. 2. 1972 Unknown [id number] 2.16.840.1.288963.3.579. 2.196 1972 Unknown [id number] 2.16.840.1.408779.3.579. 2. 1972 Unknown [id number] 2.16.840.1.155716.3.579. 2. 1972 Unknown [id number] 2.16.840.1.594791.3.579. 2. 1972 Unknown [id number] 2.16.840.1.619167.3.579. 2.1286 1972 Unknown [id number] 2.16.840.1.531239.3.579. 2.9 1972 Unknown [id number] 2.16.840.1.408816.3.579. 2.1259 1972 Unknown [id number] 2.16.840.1.182963.3.579. 2.1259 1972 Unknown [id number] 2.840.1.586978.3.579. 2.1258 1972 Unknown [id number] 2.840.1.037158.3.579. 2.1258 1972 Unknown [id number] 2.16840.1.678581.3.579. 2.1258 1972 Unknown [id number] 2.840.1.195001.3.579. 2.1258 1972 Unknown [id number] 2.840.1.297313.3.579. 2.1258 1972 Unknown [id number] 2.840.1.323574.3.579. 2.1258 1972 Unknown [id number] 2.840.1.726919.3.579. 2.1258 1972 Unknown [id number] 2.840.1.508326.3.579. 2.1258 1972 Unknown [id number] 2.840.1.867558.3.579. 2.1258 1972 Unknown [id number] .840.1.906002.3.579. 2.1258 1972 Unknown [id number] 2.840.1.445388.3.579. 2.1258 1972 Unknown [id number] 2.840.1.179768.3.579. 2.1258 1972 Unknown [id number] 2.840.1.401195.3.579. 2.1258 1972 Unknown [id number] 2.840.1.089354.3.579. 2.1258 1972 Unknown [id number] 2.840.1.776722.3.579. 2.1258 1972 Unknown [id number] 2.840.1.974727.3.579. 2.1259 1972 Unknown [id number] 2.16.840.1.345777.3.579. 2.1259 1959 Medicaid [id number] 1959 Unknown [id number] Unknown [facility] [id number] Unknown [id number] 2.16.840.1.834712.3.579. 2.531 Unknown [id number] 2.16.840.1.959540.3.579. 2.531 Unknown [id number] 2.16.840.1.879086.3.579. 2.531 Unknown [id number] 2.16.840.1.637457.3.579. 2.531 Unknown [id number] 2.16.840.1.834452.3.579. 2.531 Unknown [id number] 2.16.840.1.198846.3.579. 2.531 Unknown [id number] 2.16.840.1.506998.3.579. 2.531 Unknown [id number] 2.16.840.1.862175.3.579. 2.531 Unknown [id number] 2.16.840.1.643602.3.579. 2.531 Unknown [id number] 2.16.840.1.632803.3.579. 2.531 Unknown [id number] 2.16.840.1.190141.3.579. 2.531 Social History Date Type Detail Facility Start: 10-08-2020 End: 04-04-2023 Tobacco smoking status NHIS Never smoked tobacco [facility] Start: 10-08-2020 End: 04-04-2023 Tobacco use and exposure Smokeless tobacco non-user [facility] Start: 01-04-2022 End: 06-24-2025 Alcohol intake Lifetime non-drinker (finding) [facility] Start: 10-08-2020 History SDOH Alcohol Frequency 1 [facility] Start: 1970 Sex Assigned At Female C [facility] Start: 08-30-2020 End: 07-26-2022 Exposure to SARS-CoV-2 (event) Not sure [facility] Start: 10-08-2020 End: 06-04-2025 Sex Assigned At [facility] Start: 10-08-2020 End: 06-04-2025 No alcohol use No alcohol use [facility] Comment on above: 3 TEA WEEK; How often to you hav e a drink containing alcohol? Never [facility] Average Number of Drinks Not on file [facility] Start: 07-28-2020 Gender identity Identifies as female gender (finding) [facility] Start: 07-03-2021 Sexual orientation Heterosexual (keon ribeiro) [facility] Start: 06-05-2023 End: 06-05-2023 Tobacco smoking status MNIS Smoker (finding) [facility] Start: 1970 Sex Assigned At Not on file [facility] Tobacco smoking stat us [facility] Tobacco smoking consumption unknown [facility] Within the last year , have you [...] [OSQ] Rather much [facility] (I/We) worried whetino er (my/our) food would run out before (I/we) got money to buy more. Sometimes true [facility] Start: 10-24-2023 Alcohol Comment caffeine: 1-2 cups per day [facility] Start: 06-11-2015 End: 09-16-2024 Sex Female (finding) [facility] Start: 01-18-2024 End: 06-06-2025 Alcoholic beverage intake Ex-drinker (finding) [facility] How hard is it for y ou to pay for the very basics like food, housing, medical care, and heating Not very hard [facility] Do you feel stress - tense, restless, nervous, or anxious, or unable to sleep at night because your mind is troubled all the time - these days [OSQ] Not at all [facility] (I/We) worried wheth er (my/our) food would run out before (I/we) got money to buy more. Never true [facility] In the past 12 month s, was there a time when you were not able to pay the mortgage or rent on time? Yes [facility] Medical Equipment Procedure Code Equipment Code Equipment Original Text Equipment Identifier Dates Fibertak [place] Self-Punching Knotless 2.6mm W/No 5 Suture [id number] Start: 10-14-2020 Fibertak [place] Knotless 2.6mm [id number] Start: 10-14-2020 [place] Swivelock C 4.75mm Biocomposite Peek 19.1mm Suture Closed Eyelet - [id number] Start: 10-14-2020 Sling Gynecare T vt Exact Gynecological Stress Urinary Incontinence - [id number] Start: 12-24-2021 DISC CERVICAL 13 X15X5H MOBI-C FDA Start: 09-20-2017 DISC CERVICAL 13 X15X5H MOBI-C FDA Start: 09-20-2017 DISC CERVICAL 13 X15X5H MOBI-C FDA Start: 09-20-2017 DISC CERVICAL 13 X15X5H MOBI-C FDA Start: 09-20-2017 DISC CERVICAL 13 X15X5H MOBI-C FDA Start: 09-20-2017 Lead Intrstim Mr i 28cm - [id number] Start: 01-26-2024 Interstim X Rech arge Free Neurostimulator - [id number] Start: 01-26-2024 DISC CERVICAL 13 X15X5H MOBI-C FDA Start: 09-20-2017 DISC CERVICAL 13 X15X5H MOBI-C FDA Start: 09-20-2017 DISC CERVICAL 13 X15X5H MOBI-C FDA Start: 09-20-2017 DISC CERVICAL 13 X15X5H MOBI-C FDA Start: 09-20-2017 DISC CERVICAL 13 X15X5H MOBI-C FDA Start: 09-20-2017 DISC CERVICAL 13 X15X5H MOBI-C FDA Start: 09-20-2017 Generator Nrstm - [id number] Start: 01-02-2024 Lead Ns Respirat ory - [id number] Start: 01-02-2024 Lead Nrstm Inspr 3 Elect Cuf Tnl Boni Strl Lf - [id number] - [id number] Start: 01-02-2024 DISC CERVICAL 13 X15X5H MOBI-C FDA Start: 09-20-2017 DISC CERVICAL 13 X15X5H MOBI-C FDA Start: 09-20-2017 DISC CERVICAL 13 X15X5H MOBI-C FDA Start: 09-20-2017 DISC CERVICAL 13 X15X5H MOBI-C FDA Start: 09-20-2017 Goals Date Patient Goal Desired Activity /State Functional Status Date Assessment Result Facility 06-24-2025 Total score [AUDIT-C] 0 06/24/20 8:59 AM EDT Nida Toro MA [facility] 06-24-2025 Patient Health Quest ionnaire 2 item (PHQ-2) [Reported] [facility] 06-06-2025 Patient Health Quest ionnaire 2 item (PHQ-2) [Reported] [facility] Clinical Notes 10-27-2020 to 06-24-2025 Wendy Colon MA - 06/24/2025 9:00 AM CECILIA Davis - 06/06/2025 2:20 PM Toni Solis MD - 06/06/2025 9:00 AM EDTTelephone Encounter - Joanna Piper - 06/04/2025 3:45 PM EDT Note Date & Type Note Facility 06-24-2025 History of Presen t illness Narrative Images from the original note were not included. Dipti Acevedo, DO Obstetrics and Gynecology Mary Leal 1970 06/24/25 [id number] Yearly Wellness Exam Chief Complaint Patient presents with Gynecologic Exam LMP: LAVH BS 2014 HRT: Estrace cream, Estradiol 1MG Last pap 06-12-24 neg. Last mammogram 10-31-23 [facility] Denies breast, urinary, or bowel concerns. Visit Vitals BP 126/78 Ht 5' 4 Wt 165 lb BMI 28.32 kg/m OB Status Hysterectomy Smoking Status Never BSA 1.84 m OB History Para Term AB Living [...] Medications Medication Sig Dispense Refill Lolis Maintena 400 MG injection syringe INJECT INTRAMUSCULARLY [...] Reactions Risperidone Other Reaction(s): breast discharge Poison Bredna Extract Rash Past Surgical History: Procedure Laterality [...] reconstruction FOOT TENDON SURGERY 11/13/2023 HYSTERECTOMY 2014 [facility] BS INTRAUTERINE DEVICE INSERTION 2013 Mirena [...] palpable bilaterally, normal nipples bilaterally - everted -fatty replaced - dense - well supported- axilla negative. ABDOMEN: soft, nontender, nondistended, no masses palpable. BACK: no costovertebral angle tenderness, no obvious scoliosis/kyphosis. 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 Entered by eWndy Colon MA acting as scribe for Dr. Dipti Acevedo. Signature Wendy Colon MA Date 06/24/25 . Time 9:01 AM . The documentation recorded by the scribe accurately reflects the service(s) I personally performed and the decisions I made. Signature Mario Acevedo D.O. Date 06/24/25 Time 5:00PM. documented in this encounter [facility] 06-06-2025 History of Presen t illness Narrative Images from the original note were not included. Subjective Nurse Notes: Mary Leal is a 55 y.o. year old female patient with complaints of Asthma fu. Pt presents for her asthma follow up and she would like to have a different rescue inhaler. Pt notes improvement at this time. Asthma She complains of chest tightness, cough, difficulty breathing, shortness of breath, sputum production and wheezing. This is a chronic problem. The problem occurs intermittently. The problem has been gradually worsening. Pertinent negatives include no chest pain, fever, myalgias or sore throat. Her symptoms are aggravated by change in weather, exposure to smoke and URI. Relieved by: albuterol. She reports minimal improvement on treatment. Her past medical history is significant for asthma. Review of Systems Constitutional: Negative for chills and fever. HENT: Negative for sore throat. Respiratory: Positive for cough, sputum production, shortness of breath and wheezing. Cardiovascular: Negative for chest pain. Gastrointestinal: Negative for diarrhea, nausea and vomiting. Musculoskeletal: Negative for myalgias. Skin: Negative for rash. All other systems reviewed and are negative. Objective Visit Vitals BP 120/64 Pulse 79 Temp 98.2 F Ht 5' 4 Wt 158 lb SpO2 96% BMI 27.12 kg/m OB Status Hysterectomy Smoking Status Never BSA 1.8 m Physical Exam Constitutional: General: She is not in acute distress. Appearance: Normal appearance. HENT: Head: Normocephalic and atraumatic. Mouth/Throat: Mouth: Mucous membranes are moist. Eyes: Extraocular Movements: Extraocular movements intact. Cardiovascular: Rate and Rhythm: Normal rate and regular rhythm. Pulses: Normal pulses. Heart sounds: No murmur heard. No friction rub. No gallop. Pulmonary: Effort: No respiratory distress. Breath sounds: Normal breath sounds. No wheezing, rhonchi or rales. Musculoskeletal: Right lower leg: No edema. Left lower leg: No edema. Skin: General: Skin is warm and dry. Findings: No rash. Neurological: General: No focal deficit present. Mental Status: She is alert and oriented to person, place, and time. Psychiatric: Mood and Affect: Mood normal. Behavior: Behavior normal. Judgment: Judgment normal. Assessment/Plan Diagnoses and all orders for this visit: Mild persistent asthma (HCC) - Albuterol-Budesonide (Airsupra) 90-80 MCG/ACT aerosol; Inhale 2 Inhalations every 4 (four) hours if needed (for wheezing) Take medication as directed. Discussed conservative management and urged pt to avoid triggers. All questions answered. Call the office with any other questions or concerns. *I have reviewed and reconciled the history and medication list with the patient today documented in this encounter [facility] 06-06-2025 History of Presen t illness Narrative [facility] Initial Gastroenterology/Hepatology Consultation Note IDENTIFYING DATA PATIENT: Mary Leal TIME OF EVALUATION: 06/06/2025 9:47 AM Reason for Consult: Gastroparesis, diarrhea and flatulence. Requesting Physician: ELICEO GÓMEZ JR DO HISTORY OF PRESENT ILLNESS Mary Leal is a 55 y.o. female who has a past medical history of ADD (attention deficit disorder), Allergic rhinitis (11/16/2015), Anxiety, Asthma, Atopic dermatitis (04/09/2020), Basal cell carcinoma (BCC) of chest (04/04/2023), Bipolar disorder ([facility]), Chronic interstitial cystitis (04/06/2023), Chronic sinusitis (07/07/2022), Degenerative disc disease, cervical (05/17/2018), Dental disease, Depression, Dysphagia, Gastroparesis (11/24/2021), GERD (gastroesophageal reflux disease), History of 2019 novel coronavirus disease (COVID-19) (09/07/2023), History of pleurisy, Hyperlipidemia (04/04/2023), Hypertension, Migraine (10/23/2022), MRSA (methicillin resistant Staphylococcus aureus), Obesity, CHUCKIE (obstructive sleep apnea) (08/29/2023), Primary insomnia (07/07/2020), Rectal bleeding, Restless leg syndrome, and Visual impairment. She presents today with Gastroparesis, diarrhea and flatulence.She has uncontrollable flatulence w/o a BM but her stools are always loose as expected even on the colestipol. Never uses Imodium. She does not have any obvious repetitive or emotions, but she does have asthma but generally controls it well with her inhaler. She also takes the omeprazole for the acid reflux which is not always well controlled. She only occasionally eats late. She does not always the low residue diet but is familiar with it. He does get early satiety, but we did review that. She does not use any pain medication meloxicam but is off that now. I reviewed office visit from this past October, from [facility] where she is seen for bloating, chronic constipation with prior pelvic floor therapy, and eventual colectomy with ileostomy. It does show her EGD last summer, with chronic gastritis and dilated pylorus and esophagus with history of reflux but negative H.pylori. She had a HIDA scan at 68% at that time and an ultrasound showing hepatic steatosis and mild gallbladder thickening without stones. In 2022 her EGD showed grade D esophagitis with pyloric stenosis. She has cut prior food diarrhea is but does not pick out any particular food that causes this. Her dilation seem to have help in the past and she has a have some dysphagia again. She has never really had the manometry studies at this point either. GI HISTORY SUMMARY TABLE Last EGD 2019 Last colonoscopy PAST MEDICAL, SURGICAL, FAMILY, and SOCIAL HISTORY Past Medical History: Diagnosis Date ADD (attention [...] COLONOSCOPY with bx's N/A 03/20/2020 Performed by Alberto Solis MD at [facility] ENDOSCOPY EGD, DILATATION N/A 09/25/2020 Performed by Alberto Solis MD at [facility] ENDOSCOPY ENDOSCOPIC DIAGNOSTIC DRUG INDUCED SLEEP Bilateral 09/19/2023 Performed by Cullen Dawkins MD at [facility] FOOT SURGERY 06/25/2020 left foot surgery FOOT SURGERY Right 10/2022 and 05/2023 HYSTERECTOMY 2015 INSERTION STIMULATOR NERVE HYPOGLOSSAL Right 01/02/2024 Performed by Cullen Dawkins MD at [facility] LASER LINGUAL TONISILLECTOMY Circumferential 07/08/2021 Performed by Alexei Avila MD PhD at [facility] MRI FOOT LEFT NECK SURGERY 2017 PLANTAR FASCIECTOMY RELEASE PHARYNGEAL SCAR CPT 33111 Circumferential 07/08/2021 Performed by Alexei Avila MD PhD at [facility] RESECTION SUBMUCOSAL NASAL Bilateral 02/11/2021 Performed by Alexei Avila MD PhD at [facility] ROTATOR CUFF REPAIR Right SEPTOPLASTY Circumferential 02/11/2021 Performed by Alexei Avila MD PhD at [facility] TONSILLECTOMY Bilateral 02/11/2021 Performed by Alexei Avila MD PhD at [facility] TOTAL COLECTOMY 03/2022 uvuloplasty N/A 02/11/2021 Performed by Alexei Avila MD PhD at [facility] Family History Problem Relation Age of Onset Hypertension Mother Dementia Mother Atrial fibrillation Father Heart failure Father Alcohol abuse Sister Drug abuse Sister Liver disease Sister Colon cancer Other Anesthesia problems Neg Hx Social History: Social History Tobacco Use Smoking status: Never Smokeless tobacco: Never Vaping Use Vaping status: Never Used Substance Use Topics Alcohol use: Not Currently Drug use: Never MEDICATIONS Allergies: Allergies Allergen Reactions Risperidone Other (See Comments) My Boobs Leak Current Medications: Current Outpatient Medications: amphetamine-dextroamphetamine XR (ADDERALL XR) 25 mg 24 hr capsule, Take by mouth., Disp: , Rfl: ARIPiprazole (ABILIFY MAINTENA) 300 mg suspension,extended rel recon, Inject 1.5 mL (300 mg total) into the appropriate muscle every 28 days., Disp: , Rfl: atenoloL (TENORMIN) 25 mg tablet, Take 1 tablet (25 mg total) by mouth in the morning. Indications: high blood pressure., Disp: , Rfl: baclofen (LIORESAL) 10 mg tablet, TAKE 1/2 TO 1 TABLET BY MOUTH 3 TIMES A DAY, Disp: , Rfl: cholecalciferol, vitamin D3, 5,000 units tablet, Take 1 tablet (5,000 Units total) by mouth., Disp: , Rfl: colestipoL (COLESTID) 1 g tablet, Take by mouth every 12 (twelve) hours., Disp: , Rfl: cyproheptadine (PERIACTIN) 4 mg tablet, Take 1 tablet (4 mg total) by mouth daily as needed., Disp: , Rfl: daridorexant 50 mg tablet, Take 50 mg by mouth nightly., Disp: , Rfl: estradioL (ESTRACE) 0.01 % (0.1 mg/gram) vaginal cream, APPLY 0.5G VAGINALLY TWICE A WEEK, Disp: , Rfl: ferrous sulfate 325 (65 FE) mg EC tablet, Take 65 mg by mouth every other day., Disp: , Rfl: pwajreidydt-rxxsphide-dnahtinn (TRELEGY ELLIPTA) 100-62.5-25 mcg blister with device, Inhale 1 puff in the morning., Disp: 60 each, Rfl: 5 galcanezumab-gnlm (EMGALITY PEN) 120 mg/mL pen injector, INJECT 120MG SUBCUTANEOUSLY ONCE EVERY 30 DAYS, Disp: 1 mL, Rfl: 5 lidocaine (LIDODERM) 5 %, APPLY 1 PATCH TO AFFECTED AREA FOR 12 HOURS, THEN REMOVE FOR 12 HOURS, Disp: , Rfl: losartan (COZAAR) 25 mg tablet, Take by mouth daily., Disp: , Rfl: rOPINIRole (REQUIP) 2 mg tablet, Take 1 tablet (2 mg total) by mouth nightly. 1 mg in the morning, Disp: , Rfl: vitamin D2-vitamin K1 20-120 mcg/4 drops drops, , Disp: , Rfl: fremanezumab-vfrm (CO2StatsOVYnsect AUTOINJECTOR) 225 mg/1.5 mL, inject 1 AND 1/2 milliliters subcutaneously every 28 DAYS (Patient not taking: Reported on 06/06/2025), Disp: 1.5 mL, Rfl: 5 lamoTRIgine (LaMICtal) 25 mg tablet, Take 1 tablet (25 mg total) by mouth in the morning. (Patient not taking: Reported on 06/06/2025), Disp: , Rfl: rimegepant 75 mg tablet,disintegrating, Dissolve 1 tablet on tongue daily as needed (Migraine headache). (Patient not taking: Reported on 06/06/2025), Disp: 12 tablet, Rfl: 4 VYVANSE 30 mg capsule, Take 1 capsule (30 mg total) by mouth., Disp: , Rfl: Current Facility-Administered Medications: albuterol (PROVENTIL,VENTOLIN) nebulizer solution 2.5 mg, 2.5 mg, nebulization, PRN, Gwendolyn Stroud, SWAMPER-CHEMISTRY DEPARTMENT CHAIR PRNs: albuterol, 2.5 mg, PRN REVIEW OF SYSTEMS Review of Systems Constitutional: Positive for fatigue. HENT: Positive for rhinorrhea and sinus pressure. Genitourinary: Positive for urgency. Allergic/Immunologic: Positive for environmental allergies. Neurological: Positive for headaches. Psychiatric/Behavioral: Positive for sleep disturbance. All other systems reviewed and are negative. OBJECTIVE DATA Vitals: BP 117/70 Ht 162.6 cm (5' 4 ) Wt 75.8 kg (167 lb) BMI 28.67 kg/m , @lastwtenc@, Body mass index is 28.67 kg/m . Physical Exam Vitals reviewed. Constitutional: General: She is not in acute distress. Appearance: Normal appearance. She is well-developed and normal weight. She is not diaphoretic. HENT: Head: Normocephalic and atraumatic. Nose: Nose normal. Eyes: Conjunctiva/sclera: Conjunctivae normal. Pupils: Pupils are equal, round, and reactive to light. Neck: Thyroid: No thyromegaly. Trachea: No tracheal deviation. Cardiovascular: Rate and Rhythm: Normal rate and regular rhythm. Heart sounds: Normal heart sounds. No murmur heard. No friction rub. No gallop. Pulmonary: Effort: Pulmonary effort is normal. No respiratory distress. Breath sounds: Normal breath sounds. No wheezing or rales. Abdominal: General: Bowel sounds are normal. There is no distension. Palpations: Abdomen is soft. There is no mass. Tenderness: There is no abdominal tenderness. There is no guarding or rebound. Hernia: No hernia is present. Musculoskeletal: General: No deformity. Normal range of motion. Cervical back: Normal range of motion and neck supple. Comments: Moves all extremities freely Lymphadenopathy: Cervical: No cervical adenopathy. Skin: General: Skin is warm and dry. Findings: No rash. Comments: No cutaneous stigmata of liver disease Neurological: General: No focal deficit present. Mental Status: She is alert and oriented to person, place, and time. Cranial Nerves: No cranial nerve deficit. Motor: No tremor. Coordination: Coordination normal. Psychiatric: Mood and Affect: Mood normal. Behavior: Behavior normal. Judgment: Judgment normal. LABS AND IMAGING CBC: Lab Results Component Value Date WBC 13.4 (H) 02/12/2021 HGB 14.1 02/12/2021 HCT 42.8 02/12/2021 MCV 87 02/12/2021 PLT 405 02/12/2021 CMP: Lab Results Component Value Date K 4.2 12/20/2023 CL 105 12/20/2023 CO2 28 12/20/2023 BUN 14 12/20/2023 GLU 85 12/20/2023 Lipase: No results found for: LIPASE PT/INR: No results found for: INR , PROTIME VITAMIN B12: Lab Results Component Value Date XLILDMJM04 214 05/13/2025 FOLATE: Lab Results Component Value Date FOLATE >25.0 05/13/2025 IRON: Lab Results Component Value Date IRON 77 07/06/2020 TIBC 405 07/06/2020 FERRITIN 93 07/06/2020 MICRO Microbiology Results No results found for the last 168 hours. IMAGING: No images are attached to the encounter or orders placed in the encounter. ASSESSMENT AND PLAN Complex case, her gastroparesis is still is somewhat active, and therefore review the low residue diet, otherwise that likely contributes to her acid reflux which is still active, not completely controlled and therefore will add Pepcid at night along with the anti-reflux regimen with earlier dinners and avoiding acid and spicy foods. In the meantime, the flatulence is not due to constipation since she mostly has multiple stools now, but there may well be a malabsorption with this pattern, causing it. Therefore will do upper endoscopy, to recheck the esophagus for any stricture, the pylorus for any stenosis, but get small-bowel biopsies for dicyclomine days deficiency since she has never had that checked. Otherwise she should continue treat her asthma appropriately which could also help. In the meantime will have her start some Imodium, reduce the colestipol to once a day, and add Pepcid after dinner, to see if those help as well. Mary was seen today for <9>gastroparesis. Diagnoses and all orders for this visit: Gastroparesis Esophageal dysphagia Gastroesophageal reflux disease with esophagitis without hemorrhage Diarrhea, unspecified type Flatulence EGD with possible dilation and biopsies Issues to Address Anticoagulation recommedations: None Other medication recommendations (steroids, IBD meds, PPIs, etc): As above If you have any questions or need any further information, please feel free to contact the GI Consult Service. Thank you for allowing us to participate in the care of Mary Leal. Alberto Solis MD, MPH [facility] [place] [address] PH: [phone] documented in this encounter [facility] 06-04-2025 Miscellaneous Notes Formattin g of this note might be different from the original. Camp Maintenance Supervisor received a call from the patient regarding test results. Patient would like a call k to discuss lab results please. Please advise. Contact info Mary [phone]. Thank you so much. Lab results were normal, except for low [...] daily. She should also be taking regular wnka-bae-hllhmua vitamin-D supplement every day. Did she have her EMG results sent to us? Thank you RN called and left for patient advising on results and recommendations. Also advised that we have been unsuccessful in getting EMG results if she could reach out to that office to get them faxed to our office. documented in this encounter [facility] 06-04-2025 Telephone encount er Note Camp Maintenance Supervisor received a call from the patient regarding test results. Patient would like a call k to discuss lab results please. Please advise. Contact natividad Hernandez [phone]. Thank you so much. [facility] 06-04-2025 Telephone encount er Note Lab results were normal, except for low [...] daily. She should also be taking regular acyp-dyf-uldbsta vitamin-D supplement every day. Did she have her EMG results sent to us? Thank you [facility] 06-04-2025 Telephone encount er Note RN called and left for patient advising on results and recommendations. Also advised that we have been unsuccessful in getting EMG results if she could reach out to that office to get them faxed to our office. [facility] 02-24-2025 Telephone encount er Note Pt would like to know if [facility] can increase her Estradiol dose because she is having more hot flashes during the daytime. She takes the medication in the mornings. Please contact [facility] 02-24-2025 Miscellaneous Notes Formattin g of this note might be different from the original. Pt would like to know if [facility] can increase her Estradiol dose because she is having more hot flashes during the daytime. She takes the medication in the mornings. Please contact documented in this encounter [facility] 12-10-2024 Miscellaneous Notes Formattin g of [...] day supply preferred: 30 day Pharmacy Name: [facility] in [place] If already on preferred pharmacy list - [...] office about this. Patient's callback# if needed: [phone]. Patient stated she no longer has [place] Medicaid and now has the following (informed patient we don't have this on our covered/non-covered list so I provided her with our tax ID# to check with insurance): Insurance Name: [facility] Medicare Dual Complete ID#: [id number] Grp#: [id number] RxGrp#: [id number] RxBIN#: [id number] RxPCN#: [id number] Provider Service Line phone#: [phone] Refill request for Emgality 120mg/ml verified in refill encounter 05/14/24. Pended to Dr. Christensen for review and signature Start date from last refill: 05/15/24 Next follow up: not yet scheduled documented in this encounter [facility] 12-10-2024 Telephone encount er Note Received call [...] day supply preferred: 30 day Pharmacy Name: [facility] in [place] If already on preferred pharmacy list - [...] office about this. Patient's callback# if needed: [phone]. Patient stated she no longer has [place] Medicaid and now has the following (informed patient we don't have this on our covered/non-covered list so I provided her with our tax ID# to check with insurance): Insurance Name: [facility] Medicare Dual Complete ID#: [id number] Grp#: [id number] RxGrp#: [id number] RxBIN#: [id number] RxPCN#: [id number] Provider Service Line phone#: [phone] [facility] 12-10-2024 Telephone encount er Note Refill request for Emgality 120mg/ml verified in refill encounter 05/14/24. Pended to Dr. Christensen for review and signature Start date from last refill: 05/15/24 Next follow up: not yet scheduled [facility] 11-20-2024 Evaluation note Diagnosis Onset Date Resolution Cervical radiculopathy acute Louis banuelos 2024 1:13pm [facility] Work Phone: [phone]) 194-515601-14-2025 History of Present illness Narrative* Nelsy Snyder, SWAMPER-CHEMISTRY DEPARTMENT CHAIR - 11/19/2024 8:30 AM EST Skin Check [...] 1 year, skin check documented in this encounterResearch [facility] [id number] Nuclear medicine [facility] [place] [address] [place] [address] Nuclear Medicine Report Signed Patient: Mary Leal MR#: [id number] : 1970 Acct:[id number] Age/Sex: 54 / F ADM Date: 5 Loc: DC Room: Type: [facility] Attending Dr: Padmaja Llamas MD Copies to: Quinton Melendez Jr, DO Na Li, MD~ Ordering Provider: Padmaja Llamas MD Date of Service: 11/14/24 DC/DC gastric emptying study: R14.0 K31.84 GASTRIC EMPTYING [...] of the radiotracer remained within the stomach. DC/DC gastric emptying study IMPRESSION: No scintigraphic evidence of gastroparesis. Impression dictated by: Quinton Melendez Jr., D.OReno11/14/2024 1:54 PM Dictation Location: [place] [address] Transcribed By: MARIO 11/14/24 1354 Dictated By: Quinton Melendez Jr, DO 11/14/24 1354 Signed By: 11/14/24 [facility]4 [facility]01-07-2025 History of Present illness Narrative * Wendy [...] to the clinic 19 days status post mill dresser surgery. Eating a regular diet with difficulty. [...] Review Audit Reviewed by Nida Toro MA (Channel Business Manager) on 11/12/24 at 0827 Medication Order Taking? Sig Documenting Provider Last Dose Status Abilify Maintena 300 MG injection syringe [id number] inject INTRAMUSCULARLY ONCE A MONTH (BRING TO OFFICE FOR PROVIDER TO ADMINISTER) Active albuterol HFA 90 mcg/act inhaler [id number] Inhale 2 puffs every 4 (four) hours if needed for wheezing Eliceo Gómez, DO 10/19/24 3772 atenolol (Tenormin) 50 MG tablet [id number] Take 1 tablet (50 mg) by mouth Daily Eliceo Gómez DO Active cholecalciferol (Vitamin D-3) 125 MCG (5000 UT) capsule [id number] Take 125 mcg by mouth Daily Dipti Acevedo, Active colestipol (Colestid) 1 g tablet [id number] Take 1 g by mouth in the morning and 1 g in the evening. Dipti Acevedo DO Active Daridorexant HCl (Quviviq) 50 MG tablet [id number] Take 50 mg by mouth at bedtime Eliceo Gómez DOActive estradiol (Estrace) 0.1 MG/GM vaginal cream [id number] APPLY 0.5G VAGINALLY TWICE WEEKLY. Dipti Acevedo DO Active estradiol (Estrace) 1 MG tablet [id number] Take 1 tablet (1 mg) by mouth Daily Dipti Acevedo DO Active ferrous sulfate 325 (65 Fe) MG tablet [id number] Take 325 mg by mouth every other day Ron Kign NP Active fluvoxaMINE (Luvox) 50 MG tablet [id number] Take 50 mg by mouth at bedtime Dipti Acevedo DO Active galcanezumab (Emgality) 120 MG/ML auto-injector [id number] Inject 120 mg under the skin every 30 (thirty) days Dipti Acevedo DO Active L-Theanine 200 MG capsule [id number] Take 1 capsule by mouth Daily Carmen Cruz MD Active losartan (Cozaar) 25 MG tablet [id number] Take 1 tablet (25 mg) by mouth Daily Eliceo Gómez DO Active methylphenidate ER (Concerta) 54 MG CR tablet [id number] Take 54 mg by mouth Daily Eliceo Gómez DO Active mirabegron ER (Myrbetriq) 50 MG 24 hr tablet [id number] Take 1 tablet (50 mg) by mouth at bedtime Do not crush, chew, or split. Dipti Acevedo DO Active Multiple Vitamin (Daily-Elisa Multivitamin) tablet [id number] Yes Take 1 tablet by mouth Daily Melina Acevedo DO Active omeprazole (PriLOSEC) [address] capsule [id number] Take 40 mg by mouth in the morning. Active Quviviq 25 MG tablet [id number] TAKE 1 TABLET BY MOUTH BEDTIME ( NEEDED) FOR SLEEP Dipti Acevedo DO Active rOPINIRole (Requip) 1 MG tablet [id number] Take 1 tablet (1 mg) by mouth in the morning. Elcieo Gómez DO Active rOPINIRole (Requip) 2 MG tablet [id number] Take 1 tablet (2 mg) by mouth at bedtime Eliceo Gómez DO Active Trelegy Ellipta 100-62.5-25 MCG/ACT aerosol powder [id number] INHALE 1 PUFF BY MOUTH DAILY Eliceo Gómez DO Active triamcinolone (Kenalog) 0.1 % cream [id number] Apply topically 2 (two) times a day Dipti Acevedo, Active Past Medical History: Diagnosis Date ADHD (attention deficit hyperactivity disorder) ([facility]) 1994 Asthma ([facility]) Basal cell carcinoma right chest Colon polyp Compressed cervical disc Cystocele 2021 Depression ([facility]) Difficulty walking 05/12/23 Eczema 2022 Endometriosis 2015 Fissure, anal Gastroparesis GERD (gastroesophageal reflux disease) 1994 Hormone disorder 2018 Hypertension ([facility]) 1999 Migraine ([facility]) OCD (obsessive compulsive disorder) ([facility]) Panic attack ([facility]) 04/28 Rectocele 2021 RLS (restless [...] reconstruction FOOT TENDON SURGERY 11/13/2023 HYSTERECTOMY 2014 [facility] BS INTRAUTERINE DEVICE INSERTION 2013 Mirena [...] and rhythm Lungs: b/l clear Female genitalia: General Worker in 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 documented in this encounterResearch Psychiatric [id number] History of Present illness Narrative* Wendy Colon [...] to the clinic 4 days status post mill dresser surgery. Eating a regular diet without difficulty. [...] Review Audit Reviewed by Nida Toro MA (Channel Business Manager) on 10/28/24 at 1502 Medication Order Taking? Sig Documenting Provider Last Dose Status Lolis Maintena 300 MG injection syringe [id number] inject INTRAMUSCULARLY ONCE A MONTH (BRING TO OFFICE FOR PROVIDER TO ADMINISTER) Active albuterol HFA 90 mcg/act inhaler [id number] Inhale 2 puffs every 4 (four) hours if needed for wheezing Eliceo Gómez DO 10/19/24 2359 atenolol (Tenormin) 50 MG tablet [id number] Take 1 tablet (50 mg) by mouth Daily Eliceo Gómez DO Active cholecalciferol (Vitamin D-3) 125 MCG (5000 UT) capsule [id number] Take 125 mcg by mouth Daily Dipti Acevedo DO Active colestipol (Colestid) 1 g tablet [id number] Yes Take 1 g by mouth in the morning and 1 g in the evening. Dipti Acevedo DO Active Daridorexant HCl (Quviviq) 50 MG tablet [id number] Take 50 mg by mouth at bedtime Eliceo Gómez DOActive Discontinued 10/22/24 0842 estradiol (Estrace) 0.1 MG/GM vaginal cream [id number] APPLY 0.5G VAGINALLY TWICE WEEKLY. Dipti Acevedo DO Active estradiol (Estrace) 1 MG tablet [id number] Take 1 tablet (1 mg) by mouth Daily Dipti Acevedo DO Active ferrous sulfate 325 (65 Fe) MG tablet [id number] Take 325 mg by mouth every other day Ron King, DEMARCUS Active fluvoxaMINE (Luvox) 50 MG tablet [id number] Take 50 mg by mouth at bedtime Dipti Acevedo DO Active galcanezumab (Emgality) 120 MG/ML auto-injector [id number] Inject 120 mg under the skin every 30 (thirty) days Dipti Acevedo DO Active L-Theanine 200 MG capsule [id number] Take 1 capsule by mouth Daily Carmen Cruz MD Active losartan (Cozaar) 25 MG tablet [id number] Take 1 tablet (25 mg) by mouth Daily Eliceo Gómez DO Active methylphenidate ER (Concerta) 54 MG CR tablet [id number] Take 54 mg by mouth Daily Eliceo Gómez DO Active mirabegron ER (Myrbetriq) 50 MG 24 hr tablet [id number] Take 1 tablet (50 mg) by mouth at bedtime Do not crush, chew, or split. Dipti Acevedo DO Active omeprazole (PriLOSEC) [address] capsule [id number] Take 40 mg by mouth in the morning. Active Quviviq 25 MG tablet [id number] Yes TAKE 1 TABLET BY MOUTH BEDTIME ( NEEDED) FOR SLEEP Dipti Acevedo DO Active rOPINIRole (Requip) 1 MG tablet [id number] Take 1 tablet (1 mg) by mouth in the morning. Eliceo Gómez DO Active rOPINIRole (Requip) 2 MG tablet [id number] Take 1 tablet (2 mg) by mouth at bedtime Eliceo Gómez DO Active Trelegy Ellipta 100-62.5-25 MCG/ACT aerosol powder [id number] INHALE 1 PUFF BY MOUTH DAILY Eliceo Gómez DO Active triamcinolone (Kenalog) 0.1 % cream [id number] Apply topically 2 (two) times a day [...] Name Age of Onset Alzheimer's disease Mother Jonana Hypertension Mother Joanna Atrial fibrillation Father Dad Hypertension Father Dad Coronary artery disease Father Dad Heart failure Father Dad Physical Exam - General appearance, mentation, extraocular movements, facial strength and movement, hearing, upper and lower extremity strength and tone, sensation to gross testing, coordination, and gait are normalor at baseline unless noted below. Female genitalia: General Worker in room, no evidence of infection, cuff [...] Date 10/28/24 Time 5:00PM. documented in this encounterResearch Psychiatric [id number] History of Present illness Narrative* Radha Cardenas [...] with burning symptoms 12/07/22 EGD with MAC MAURICIO grade D esophagitis, pyloric balloon dilator dilated [...] gain. She has an appointment with a technical information specialist 10/28. She was started on buspar for uncontrolled anxiety by her PCP. Loose stools 4-8 times a day Jackson 6. Occasional BRBPR. Reglan increased diarrhea, does [...] & Nutrition Department of Internal Medicine [facility] Pager [phone] or Epic Chat with questions * Carmen Peace MA - 10/23/2024 11:00 AM EST This telegraphic typewriter mechanic verified the patient's name and . * [...] Negative stool O&P. On Omeprazole daily for usp due to hx of grade D esophagitis, erosive gastropathy and gastroparesis. At interval, persistent loose stool Jackson type 6 about 5-6 times daily with [...] r/o malabsorption. Hemorrhoids on PE. * Tania Riggs - 10/23/2024 11:00 AM EST Mary Leal was offered and accepted a Medical General Worker for this exam/procedure/test 10/23/2024.Name of Medical General Worker: Tania Riggs [facility] Instructions* Patient Instructions* Radha Cardenas MD - [...] will either call you, send you a orangutrans message, or mail you aletter with the results of your tests within 1-2 weeks after you have completed your tests. If you do not hear from our office, please call the clinic to receive your results at [phone]. As a reminder, [facility] MyChart should not be used as a form of communication that replaces an office visit. It can be used for reminders and clarifications If you need to fax old records in, please fax to [phone]. If you have any concerning symptoms, please seek immediate medical attention. documented in this [facility]12-10-2024 History of Present illness Narrative* Wendy Colon MA - 10/15/2024 3:30 PM EST Images from the original note were not included. Dipti Acevedo, DO Obstetrics and Gynecology Mary Leal 1970 10/15/24 [id number] Pre Operative Exam Chief Complaint Patient presents [...] HYSTERECTOMY 2015 [facility] BS INTRAUTERINE DEVICE INSERTION 2013 Mirena OTHER SURGICAL HISTORY scar tissue removed from tonsils ROTATOR CUFF REPAIR Right 10/2016 SPINE SURGERY 2017 TONSILLECTOMY 02/11/2021 TUBAL LIGATION Bilateral 2006 Past Medical History: Diagnosis Date ADHD (attention deficit hyperactivity disorder) ([facility]) 1994 Asthma ([facility]) Basal cell carcinoma right chest Colon polyp Compressed cervical disc Cystocele 2021 Depression ([facility]) Difficulty walking 05/12/23 Eczema 2022 Endometriosis 2014 Fissure, anal Gastroparesis GERD (gastroesophageal reflux disease) 1994 Hormone disorder 2018 Hypertension ([facility]) 2000 Migraine ([facility]/HCC) OCD (obsessive compulsive disorder) ([facility]) Panic attack ([facility]) 04/28 Rectocele 2021 RLS (restless [...] costovertebral angle tenderness, no obvious scoliosis/kyphosis. 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 documented in this encounterResearch Psychiatric [id number] Evaluation note* Diagnosis Onset Date Resolution Status Admit Date Cervical radiculopathy acute De cember 2023 8:25am Cervical radiculopathy acute Ja nuary 2024 1:13pm [facility] Work Phone: 1(519) 779-482511-22-2024 History of Present illness Narrative* Wendy Colon MA - 09/27/2024 11:45 AM EST Images from the original note were not included. Dipti Acevedo, DO Obstetrics and Gynecology Mary Leal 1970 09/27/24 [id number] Exam Chief Complaint Patient presents with Follow-up [...] HYSTERECTOMY 2014 LAV BS INTRAUTERINE DEVICE INSERTION 2012 Mirena OTHER SURGICAL HISTORY scar tissue removed from tonsils ROTATOR CUFF REPAIR Right 10/2016 SPINE SURGERY 2017 TONSILLECTOMY 02/11/2021 TUBAL LIGATION Bilateral 2006 Past Medical History: Diagnosis Date ADHD (attention deficit hyperactivity disorder) ([facility]) 1994 Asthma ([facility]) Basal cell carcinoma right chest Colon polyp Compressed cervical disc Cystocele 2021 Depression ([facility]) Difficulty walking 05/12/23 Eczema 2022 Endometriosis 2015 Fissure, anal Gastroparesis GERD (gastroesophageal reflux disease) 1994 Hormone disorder 2019 Hypertension ([facility]) 2000 Migraine ([facility]) OCD (obsessive compulsive disorder) ([facility]) Panic attack ([facility]) 04/28 Rectocele 2021 RLS (restless legs syndrome) Urinary incontinence 2022 Varicella 1984 Visual impairment 2010 ROS See HPI EXAM GENERAL EXAMINATION alert oriented well developed, well nourished. 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 Granulation [...] in vault today. Educated on granulation steve hopezak, her hysterectomy was 2014. If granulation continues [...] Date 09/27/24 Time 5:00PM. documented in this encounterResearch Psychiatric [id number] History of Present illness Narrative* Ron King [...] deficiency Arthritis B12 deficiency Bipolar 1 disorder ([facility]/HCC) Chronic cluster headache, not intractable Chronic idiopathic constipation Chronic interstitial cystitis Genitourinary syndrome of menopause Incontinence Migraine ([facility]) CHUCKIE (obstructive sleep apnea) Other [...] after colorectal surgery JOLEEN (generalized anxiety disorder) ([facility]) Headache History of 2019 novel coronavirus disease (COVID-19) Impingement syndrome of right shoulder Increased frequency of urination Lingual tonsil hypertrophy Major depressive disorder, recurrent, moderate ([facility]) Nasal congestion Nausea Partial nontraumatic rupture of right rotator cuff Poor urinary stream Stress incontinence in female Unspecified inflammatory spondylopathy, cervical region (CMS/[facility]) Urinary urgency Wheezing Pain due to internal orthopedic prosthetic devices, implants and grafts, initial encounter ([facility]) Jamal Past Medical History: Past Medical History: Diagnosis Date ADHD (attention deficit hyperactivity disorder) ([facility]) 1994 Asthma ([facility]) Basal cell carcinoma right chest Colon polyp Compressed cervical disc Cystocele 2021 Depression ([facility]) Difficulty walking 05/12/23 Eczema 2022 Endometriosis 2015 Fissure, anal Gastroparesis GERD (gastroesophageal reflux disease) 1995 Hormone disorder 2019 Hypertension ([facility]) 2000 Migraine ([facility]) OCD (obsessive compulsive disorder) ([facility]) Panic attack ([facility]) 04/28 Rectocele 2021 RLS (restless [...] 10 min Stress: Stress Concern Present (05/01/2024) [employer] - Occupational Stress Questionnaire Feeling of Stress : Rather much Social Connections: Socially Isolated (05/01/2024) Social Connection and Isolation Panel [NHANES] Frequency of Communication with Friends and Family: More than three times a week Frequency of Social Gatherings with Friends and Family: More than three times a week Attends Confucianist Services: Never Active Member of Clubs or Organizations: No Attends Club or Organization Meetings: Never Marital Status: Intimate Partner Violence: Not At Risk (06/23/2023) [facility] [place] Safety Threatened: Not on file Insulted: Not [...] or fail to improve. documented in this encounterResearch Psychiatric [id number] History of Present illness Narrative* Wendy Colon MA - 09/24/2024 8:15 AM EST Images from the original note were not included. Dipti Acevedo, Obstetrics and Gynecology Mary Zoya Ornelasgs 1970 09/24/24 [id number] Exam Chief Complaint Patient presents with Gynecologic [...] reconstruction FOOT TENDON SURGERY 11/13/2023 HYSTERECTOMY 2015 [facility] INTRAUTERINE DEVICE INSERTION 2013 Mirena [...] reflux disease) 1994 Hormone disorder 2019 Hypertension (CMS/HCC) 2000 Migraine (CMS/HCC) OCD (obsessive compulsive disorder) ([facility]) Panic attack ([facility]) 04/28 Rectocele 2021 RLS (restless legs syndrome) Urinary incontinence 2022 Varicella 1984 Visual impairment 2010 ROS See HPI EXAM GENERAL EXAMINATION alert oriented well developed, well nourished. HEAD: normocephalic atraumatic. EYES: sclera anicteric. EARS: no obvious hearing deficit. FEMALE GENITOURINARY:manager project in room -hymnal defect, estradiol cream in [...] Colon MA acting as scribe for Dr. Ditpi Acevedo. Signature Wendy Colon MA Date 09/24/24 . Time 8:03 AM . The documentation recorded by the scribe accurately reflects the service(s) I personally performed and the decisions I made. Signature Mario Acevedo D.O. Date 09/24/24 Time 5:00PM. documented in this encounterResearch Psychiatric [id number] Evaluation note* Diagnosis Onset Date Resolution Status Admit Date Cervical radiculopathy acute No vember 2023 2:53pm Cervical radiculopathy acute De cember 2023 8:25am [facility] Work Phone: 1(729) 893-554211-11-2024 Evaluation note* Diagnosis Onset Date Resolution Status Admit Date Cervical radiculopathy acute No vember 2023 2:53pm Cervical radiculopathy acute De cember 2023 8:25am Cervical radiculopathy acute Louis banuelos 2024 1:13pm [facility] Work Phone: 1(641) 513-115310-30-2024 History of Present illness Narrative* Wendyroc Colon MA - 09/04/2024 3:15 PM EDT Images from the original note were not included. Dipti Acevedo, DO Obstetrics and Gynecology Mary Leal 1970 09/04/24 [id number] Exam Chief Complaint Patient presents with Follow-up [...] Current Outpatient Medications Medication Sig Dispense Refill Abilifsteven Maintena 300 [...] reconstruction FOOT TENDON SURGERY 11/13/2023 HYSTERECTOMY 2015 [facility] BS INTRAUTERINE DEVICE INSERTION 2013 Mirena OTHER SURGICAL HISTORY scar tissue removed from tonsils ROTATOR CUFF REPAIR Right 10/2016 SPINE SURGERY 2017 TONSILLECTOMY 02/11/2021 TUBAL LIGATION Bilateral 2006 Past Medical History: Diagnosis Date ADHD (attention deficit hyperactivity disorder) ([facility]) 1994 Asthma ([facility]) Basal cell carcinoma right chest Colon polyp Compressed cervical disc Cystocele 2021 Depression (CMS/HCC) Difficulty walking 05/12/23 Eczema 2022 Endometriosis 2014 Fissure, anal Gastroparesis GERD (gastroesophageal reflux disease) 1994 Hormone disorder 2019 Hypertension (CMS/HCC) 2000 Migraine (CMS/HCC) OCD (obsessive compulsive disorder) ([facility]) Panic attack (CMS/HCC) 04/28 Rectocele 2021 RLS (restless legs syndrome) Urinary incontinence 2022 Varicella 1984 Visual impairment 2009 ROS See HPI EXAM GENERAL EXAMINATION alert oriented well developed, well nourished. HEAD: normocephalic atraumatic. EYES: sclera anicteric. EARS: no obvious hearing deficit. FEMALE GENITOURINARY:manager project in room -Erythema, and edema- chronic inflammatory [...] Date 09/04/24 Time 5:00PM. documented in this encounterResearch Psychiatric [id number] History of Present illness Narrative* Ron King, DEMARCUS - 09/04/2024 2:40 PM EDT Images from the original note were not included. SUBJECTIVE: Mary Leal is a 54 y.o. female presents with chief complaint of No chief complaint on file. Pt presents to discuss her anxiety. Pt notes that she is in between therapy at this time, is [facility] in the first few weeks of September. [...] cystitis Genitourinary syndrome of menopause Incontinence Migraine ([facility]) CHUCKIE (obstructive sleep apnea) Other [...] after colorectal surgery JOLEEN (generalized anxiety disorder) ([facility]) Headache History of 2019 novel coronavirus disease (COVID-19) Impingement syndrome of right shoulder Increased frequency of urination Lingual tonsil hypertrophy Major depressive disorder, recurrent, moderate ([facility]) Nasal congestion Nausea Partial nontraumatic rupture of right rotator cuff Poor urinary stream Stress incontinence in female Unspecified inflammatory spondylopathy, cervical region ([facility]) Urinary urgency Wheezing Pain due to internal orthopedic prosthetic devices, implants and grafts, initial encounter ([facility]) Jamal Past Medical History: Past Medical History: Diagnosis Date ADHD (attention deficit hyperactivity disorder) ([facility]) 1994 Asthma ([facility]) Basal cell carcinoma right chest Colon polyp Compressed cervical disc Cystocele 2021 Depression ([facility]) Difficulty walking 05/12/23 Eczema 2022 Endometriosis 2015 Fissure, anal Gastroparesis GERD (gastroesophageal reflux disease) 1995 Hormone disorder 2019 Hypertension ([facility]) 2000 Migraine ([facility]) OCD (obsessive compulsive disorder) ([facility]) Panic attack ([facility]) 04/28 Rectocele 2021 RLS (restless [...] 10 min Stress: Stress Concern Present (05/01/2024) [employer] - Occupational Stress Questionnaire Feeling of Stress : Rather much Social Connections: Socially Isolated (05/01/2024) Social Connection and Isolation Panel [NHANES] Frequency of Communication with Friends and Family: More than three times a week Frequency of Social Gatherings with Friends and Family: More than three times a week Attends Confucianist Services: Never Active Member of Clubs or Organizations: No Attends Club or Organization Meetings: Never Marital Status: Intimate Partner Violence: Not At Risk (06/23/2023) [facility] Safety Threatened: Not on file Insulted: Not [...] UA Clear Glucose, UA Negative Negative - 1999(110) ++++ mg/dL Bilirubin, UA Negative Negative - 4(70) +++ mg/dL Ketones, UA Negative Negative - 160(16) ++++ mg/dL Spec Grav, UA 1.010 1 - 1.03 Blood, UA Negative Negative - 50 Devin/mcL pH, UA 5.0 5 - 9 Protein, UA Negative Negative - 1999(20) ++++ mg/dL Urobilinogen, UA 0.2 0.2 - [...] (around 10/02/2024) for PRN. documented in this encounterResearch Psychiatric [id number] History of Present illness Narrative* Tania Riggs [...] subtotal colectomy, who presents today to the [facility] for chronic abdominal pain, bloating, [...] four hours. Ms. Leal sees a local money market dealer. She is worried about parasites with the loose stools, and SIBOdue to bloating. Ms. Leal has a history of severe reflux esophagitis but is not currently taking PPI she stopped due to concerns of side effects. She is taking an over the counter supplement root extract recommended by her local money market dealer. She does not take a multivitamin. Last [...] with food. She feels better at this property portfolio officer weight and is afraid to eat for weight gain, not due to her symptoms. She is not currently following with money market dealer or counselor and is open to both. [...] subtotal colectomy, who presents today to the [facility] for chronic abdominal pain, bloating, [...] & Nutrition Department of Internal Medicine [facility] Pager [phone] or Epic Chat with questions * Padmaja [...] Negative stool O&P. Continue Omeprazole daily for usp due to hx of grade D esophagitis, erosive gastropathy and gastroparesis. Refer to nutrition and psychology (fear of eating). Continue current medications. Based on clinical course, may repeat gastric emptying test and refer to advanced endoscopy for evaluation of G-POEM if clinically indicated. documented in this [facility]10-02-2024 Instructions* Patient Instructions* Radha Cardenas MD - 08/07/2024 9:00 AM EDT It was a pleasure to see you today. The following are your instructions: - referral to GI specific fitness leader, will request video/telephone visit for you - referral to psychology to help you heal your relationship with food - continue omeprazole, vitamin D, and iron repletion - repeat H2 breath testing as able If you had labs drawn, I or my team will either call you, send you a orangutrans message, or mail you aletter with the results of your tests within 1-2 weeks after you have completed your tests. If you do not hear from our office, please call the clinic to receive your results at [phone]. As a reminder, [facility] orangutrans should not be used as a form of communication that replaces an office visit. It can be used for reminders and clarifications If you need to fax old records in, please fax to [phone]. If you have any concerning symptoms, please seek immediate medical attention. documented in this [facility]09-26-2024 History of Present illness Narrative* Eliceo Ngtomasa, DO - 08/01/2024 3:20 PM EDT Images [...] after colorectal surgery JOLEEN (generalized anxiety disorder) ([facility]) Headache History of 2019 novel coronavirus disease (COVID-19) Impingement syndrome of right shoulder Increased frequency of urination Lingual tonsil hypertrophy Major depressive disorder, recurrent, moderate (HCC) ([facility]) Nasal congestion Nausea Partial nontraumatic rupture of right rotator cuff Poor urinary stream Stress incontinence in female Unspecified inflammatory spondylopathy, cervical region ([facility]) Urinary urgency Wheezing Pain due to internal orthopedic prosthetic devices, implants and grafts, initial encounter ([facility]) Belching Past Medical History: Past Medical History: Diagnosis Date ADHD (attention deficit hyperactivity disorder) ([facility]) 1994 Asthma ([facility]) Basal cell carcinoma right chest Colon polyp Compressed cervical disc Cystocele 2021 Depression ([facility]) Difficulty walking 05/12/23 Eczema 2022 Endometriosis 2015 Fissure, anal Gastroparesis GERD (gastroesophageal reflux disease) 1994 Hormone disorder 2019 Hypertension ([facility]) 2000 Migraine ([facility]) OCD (obsessive compulsive disorder) ([facility]) Panic attack ([facility]) 04/28 Rectocele 2021 RLS (restless [...] 10 min Stress: Stress Concern Present (05/01/2024) [employer] - Occupational Stress Questionnaire Feeling of Stress : Rather much Social Connections: Socially Isolated (05/01/2024) Social Connection and Isolation Panel [NHANES] Frequency of Communication with Friends and Family: More than three times a week Frequency of Social Gatherings with Friends and Family: More than three times a week Attends Confucianist Services: Never Active Member of Clubs or Organizations: No Attends Club or Organization Meetings: Never Marital Status: Intimate Partner Violence: Not At Risk (06/23/2023) [facility] Safety Threatened: Not on file Insulted: Not [...] and/or persist despite treatment. - nystatin (Mycostatin) [id number] UNIT/ML suspension; Take 5 mL (500,000 Units) [...] mouth every other day, Disp: , Rfl: Kvalnqotctz-Kcndhowaq-Aumdol 100-62.5-25 MCG/ACT aerosol powder , Inhale 1 [...] 90 tablet, Rfl: 1 documented in this encounterResearch Psychiatric [id number] NoteSLEEP/NEUROLOGY CLINIC FOLLOW-UP EVALUATION Date of Evaluation: [...] table RLS: Restless legs symptoms started in 2019 and continue to be very well controlled [...] regarding sleep. She eventually was evaluated at [facility] sleep center with Dr. Sherman [...] was also evaluated at sleep medicine at [facility], and saw Dr. Yoni Tuttle on 10/14/2022. She was subsequently started on auto-CPAP 5-15 cm H2O with nasal mask in December 2022. She uses the CPAP for about a week, and had severe intolerance and felt suffocated. She had severe pressure and mask intolerance, and despite changes in masks and pressure settings she was not able to tolera (more content not included)...[facility] History of Present illness Narrative* Eliceo Gómez, DO - 07/11/2024 9:40 AM EDT Images from [...] (generalized anxiety disorder) (CMS/HCC) Headache History of 2018 novel coronavirus disease (COVID-19) Impingement syndrome of right shoulder Increased frequency of urination Lingual tonsil hypertrophy Major depressive disorder, recurrent, moderate (HCC) (CMS/HCC) Nasal congestion Nausea Partial nontraumatic rupture of right rotator cuff Poor urinary stream Stress incontinence in female Unspecified inflammatory spondylopathy, cervical region ([facility]) Urinary urgency Wheezing Pain due to internal orthopedic prosthetic devices, implants and grafts, initial encounter ([facility]) Belching Past Medical History: Past Medical History: Diagnosis Date ADHD (attention deficit hyperactivity disorder) ([facility]) 1994 Asthma ([facility]) Basal cell carcinoma right chest Colon polyp Compressed cervical disc Cystocele 2021 Depression ([facility]) Difficulty walking 05/12/23 Eczema 2022 Endometriosis 2015 Fissure, anal Gastroparesis GERD (gastroesophageal reflux disease) 1994 Hormone disorder 2018 Hypertension ([facility]) 1999 Migraine ([facility]) OCD (obsessive compulsive disorder) ([facility]) [facility] 04/28 Rectocele 2021 RLS (restless legs syndrome) [...] reconstruction FOOT TENDON SURGERY 11/13/2023 HYSTERECTOMY 2015 [facility] BS INTRAUTERINE DEVICE INSERTION 2013 Mirena [...] 10 min Stress: Stress Concern Present (05/01/2024) [employer] - Occupational Stress Questionnaire Feeling of Stress : Rather much Social Connections: Socially Isolated (05/01/2024) Social Connection and Isolation Panel [NHANES] Frequency of Communication with Friends and Family: More than three times a week Frequency of Social Gatherings with Friends and Family: More than three times a week Attends Confucianist Services: Never Active Member of Clubs or Organizations: No Attends Club or Organization Meetings: Never Marital Status: Intimate Partner Violence: Not At Risk (06/23/2023) [facility] Safety Threatened: Not on file Insulted: Not [...] SM ANTIBODY <1.0 NEG <1.0 NEGATIVE AI SM/CHARGEBACK ANALYST ANTIBODY <1.0 NEG <1.0 NEGATIVE AI SJOGREN'S [...] Gastroparesis Mild intermittent asthma, unspecified whether complicated ([facility]) Patient advised to return if symptoms worsen and/or persist despite treatment.improved significantly, continue current treatment - albuterol HFA 90 mcg/act inhaler; Inhale 2 puffs every 4 (four) hours if needed for wheezing - Vjtvuwekgnk-Esecpdans-Xvjpca 100-62.5-25 MCG/ACT aerosol powder ; Inhale 1 [...] mg by mouth Daily, Disp: , Rfl: Abilify Maintena 300 MG [...] mouth every other day, Disp: , Rfl: Ykrddgxtier-Cxuqhfsgv-Tokhjj (Trelegy Ellipta) 100-62.5-25 MCG/ACT aerosol powder , Inhale, Disp: ,Rfl: Dpbxstdybun-Mbvyxocjd-Njcsjf 100-62.5-25 MCG/ACT aerosol powder , Inhale 1 [...] Disp: 30 tablet, Rfl: 11 nystatin (Mycostatin) [id number] UNIT/ML suspension, Take 5 mL by mouth [...] Daily, Disp: , Rfl: documented in this encounterResearch Psychiatric [id number] History of Present illness Narrative* Sidney Amezquita, DPM - 06/27/2024 9:45 AM EDT Images [...] and follow-up if needed. documented in this encounterResearch Psychiatric [id number] Telephone encounter Note* Telephone Encounter - Serenity Joseph MA - 06/12/2024 2:19 PM EDT LDH=11/30/22 MEREDITH=10/11/22 Patient will need a follow up appointment For future refills [facility]08-07-2024 Miscellaneous Notes* Telephone Encounter - Serenity Joseph MA - 06/12/2024 2:19 PM EDT LDH=11/30/22 MEREDITH=10/11/22 Patient will need a follow up appointment For future refills [facility] in [facility]University [facility] Miscellaneous Notes* Telephone Encounter - Sandip Chavira [...] [facility] also is [facility] [address] * Telephone Encounter - Carmen Barkley RN [...] and maintenance dose. Prior auth submitted to [facility] via [facility]. [place]: [id number] documented in this [facility]UC [facility]07-[facility] Telephone encounter Note* Telephone Encounter - Sandip [...] Patient also is switching pharmacies: [facility] [address] [id number] [facility]07-09-2024 Telephone encounter Note* Telephone Encounter - Carmen Barkley RN - 05/14/2024 8:15 AM EDT Added new pharmacy to patient's chart. Please advise on medication changes. [facility]07-09-2024 Telephone encounter Note* Telephone Encounter - Pauline Christensen MD - 05/14/2024 8:15 AM EDT Yes, ok to switch to Emgalty- she will need loading dose of 120 mg x 2 injections = 240 mg for the first month, and afterwards 120 mg Q4 weeks maintenance. Thanks [facility]07-09-2024 Telephone encounter Note* Telephone Encounter - Carmen Barkley RN - 05/14/2024 8:15 AM EDT Orders placed for review and signature by physician for Emgality loading and maintenance dose. Prior auth submitted to [facility] via [facility]. [place]: [id number] [facility]06-23-2024 NoteQuality of life Answer each question by shading in the [place] completely. Choose only one answer for each [...] have drawn a scale on which to howie your overall rating of your health. 0 represents your health at its worst, 100 represents your health at its best. Please place an X on the scale to show how good or bad your health is today. 5 10 15 20 25 30 35 40 45 50 55 60 65 70 75 80 85 90 95 100 [facility]06-23-2024 NoteEpworth Sleepiness Scale Please rate the following [...] Problems: There are no active Hospital Problems. [facility]06-12-2024 Note Attestation signed by Grant Biswas, PhD at 04/18/2024 10:57 AM I have read and agree with the cardiac technician's documentation and treatment summary. Please note there [...] PhD (electronically signed on 04/17/2024 at 8:49 AM)[facility]06-07-2024 Nurse Note* Nursing Notes - Stacie Johns RN - 04/12/2024 12:45 PM EDT Dilated LES to 20mm with balloon, held for [address] Franco [facility]06-07-2024 Miscellaneous Notes* Nursing Notes - Stacie Johns [...] [facility]. The indication for endoscopic evaluation includes: Taylor grade D esophagitis Early satiety Unintentional weight [...] Monitored Anesthesia Care. Milagros Franco MD, PhD [facility] Work Phone: 1(454) 344-983506-07-2024 History and physical note* Milagros Franco MD, PhD - 04/12/2024 12:30 PM EDT ENDOSCOPIC PREPROCEDURE HISTORY AND PHYSICAL HISTORY OF PRESENT ILLNESS: Mary Leal is a 53 y.o. female seen in the pre-procedure area at [facility]. The indication for endoscopic evaluation includes: Taylor grade D esophagitis Early satiety Unintentional weight [...] Milagros Franco MD, PhD documented in this [facility] Nurse Note* August MAKI Kaur - 04/12/2024 12:30 PM EDT 1316- Family/dedicated driver arrived to recovery bay. RN provided and reviewed discharge instructions to patient and daughter. Verbalized understanding. All questions answered. 1326- Patient ambulated off ASC unit independently with dedicated driver. [facility] Nurse Surgical operation note* Sae Kaur RN - 04/12/2024 12:30 PM EDT 1316- Family/dedicated driver arrived to recovery bay. RN provided and reviewed discharge instructions to patient and daughter. Verbalized understanding. All questions answered. 1326- Patient ambulated off ASC unit independently with dedicated driver. [facility]06-07-2024 Nurse Note* Nursing Notes - Stacie Johns RN - 04/12/2024 12:12 PM EDT Sedation, vital signs, airway, and monitoring per anesthesia. [facility]05-29-2024 Note Attestation signed by Pauline Christensen MD at 04/03/2024 4:16 PM I personally saw and examined the patient on the same date of service as resident/fellow Dr. Dumont. I discussed the findings and therapeutic plan with the resident/fellow . I agree with the documentation, except for any edits/updates below. Teaching Physician's Revisions: None Pauline Christensen MD. Account Development Executive of Neurology and Sleep Medicine [facility] SLEEP/NEUROLOGY CLINIC FOLLOW-UP EVALUATION Date of Evaluation: [...] regarding sleep. She eventually was evaluated at [facility] sleep [place] with Dr. Sherman and had sleep study [...] we referred her to (more content not included)...[facility] 03-14-2024 Telephone encounter Note* Telephone Encounter [...] Rx has been sent. Jacquelin Lowery RN [facility]05-09-2024 Miscellaneous Notes* Telephone Encounter - Jacquelin Lowery [...] sent. Jacquelin Lowery RN documented in this encounterUniversity Hospitals Health System2024 NoteHNO ID: [id number] Author: FLOWER LOPEZ APRN.CHEMISTRY DEPARTMENT CHAIR Service: ? Author Type: Nurse Practitioner Type: [...] intermittently- somewhat improved. She has worked with [employer] rep re: interstim setting, now on program [...] you received about pain medications helpful? Yes General Worker offered:Patient declines OBJECTIVE: BP 146/93 Pulse 62 [...] improvement s/p (more content not included)...[facility]2024 History of Present illness Narrative* Flower Lopez APRN.CHEMISTRY DEPARTMENT CHAIR - 02/27/2024 10:00 AM EDT Female Pelvic [...] intermittently- somewhat improved. She has worked with [employer] rep re: interstim setting, now on program [...] you received about pain medications helpful? Yes General Worker offered:Patient declines OBJECTIVE: BP 146/93 Pulse 62 [...] understanding. Flower Lopez APRN.CNP documented in this encounterUniversity Hospitals Health System04-16-2024 Miscellaneous Notes* Telephone Encounter - Denisse Truong [...] 20, 2024 7:32 AM documented in this encounterUniversity Hospitals Health System04-07-2024 NoteHNO ID: [id number] Author: LISSA DOYLE APRN.KWESI Service: ? Author Type: Nurse Practitioner Type: Progress Notes Filed: 02/11/2024 15:16 Note Text: Visit cancelled. Patient checked into [employer] care online system for My ongoing yeast infection. I've tried 3 Diflucan. . Connected to visit, advised PCP or local Express/Urgent Care in person evaluation. Patient verbalized understanding and comfortable with plan. Nontoxic appearance. Lissa Doyle APRN.KWESIMercy Health [facility]04-07-2024 History of Present illness Narrative* Lissa Doyle APRN.CNP - 02/11/2024 3:14 PM EDT Visit cancelled. Patient checked into [employer] online system for My ongoing yeast infection. I've tried 3 Diflucan. . Connected to visit, advised PCP or local Express[facility]Urgent Care in person evaluation. Patient verbalized understanding and comfortable with plan. Nontoxic appearance. Lissa Doyle APRN.CNP documented in this encounterUniversity Hospitals Health System04-03-2024 NoteSLEEP/NEUROLOGY CLINIC FOLLOW-UP EVALUATION Date of Evaluation: [...] a second opinion from [facility] at [facility], and saw Dr. Yoni Tuttle on 10/14/2022. [...] regarding sleep. She eventually was evaluated at [facility] sleep center with Dr. Sherman [...] would like to av (more content not included)...[facility]03-23-2024 Miscellaneous Notes* Telephone Encounter - Radha Dunham MD - 01/27/2024 10:44 AM EDT Chemistry Quality Control Technician Resident Telephone Encounter 01/27/2024 10:44 AM Call [...] pain. Informed patient she can call her [employer] rep Monday. Will send telephone encounter to [...] concerns answered adequately. Discussed with Dr. Mullins Urogyosman fellow physician disaster recovery consultant. Radha Dunham MD Obstetrics and Gynecology, PGY1 documented in this encounterUniversity Hospitals Health System03-21-2024 History and physical note * Max Marroquin PA-C - 01/25/2024 9:00 AM EDT PREANESTHESIA CONSULT CLINIC TELEHEALTH VISIT SERVICE DATE: 01/25/2024 SERVICE TIME: 9:02 AM Patient has been identified by name and date of : Yes Reason for contact: PACC visit Accompanied by: Self This is a virtual visit using orangutrans Zoom Video Visit. It required patient- provider interaction for the medical decision making as documented below. I have communicated my name and active licensure. The patient's identity and physical location wereverified at the time of this visit. Either the patient or their legal lead generation representative has been informed of the risks [...] using inspire to get activated 02/07/2024 ) [id number] Score: Age: <65 Sex: female CHF history: No Hypertension history: Yes Stroke/TIA/thromboembolism history: No Vascular disease history: No Diabetes history: No [id number] Score: 2 ANESTHESIA FINDINGS: Intubation History: No [...] the AM and 2 mg PM Yes mdkrdphqpqt-ifuniqjxd-qykhxpjs (TRELEGY ELLIPTA) 100-62.5-25 mcg Inhale 1 Puff [...] fevers. Neuro: No history of TIA's, stroke, ENVELOPE MACHINE OPERATOR tumor, impaired sensorium, hemiplegia, paraplegia or quadraplegia. No neurological symptoms or problems. Respiratory: CHUCKIE and asthma Negative for Bronchitis, COPD, Pneumonia within 6 weeks (date), URI < 2 weeks Negative for cough, wheezing or shortness of breath. Negative for hemoptysis. Cardiovascular: HTN Negative for Recent LA, CAD, CHF Negative for chest pain, orthopnea, [...] 01/25/2024 TIME: 9:02 AM documented in this encounterUniversity Hospitals Health System03-19-2024 Instructions* Patient Instructions* Max Marroquin PA-C - 01/23/2024 3:50 PM EDT PATIENT PREOPERATIVE INSTRUCTIONS Pam Wang MD has scheduled you for your procedure at this surgery center: [facility] [place] Scheduling Office: [phone] [place] [address]. Arrival Time for Surgery: - To obtain your arrival time for surgery, call your physician's office the day before your surgery. - If your surgery is scheduled for Monday, call the Monday before. Your surgeon s head custodian will tell you what time to call the office. - If you have not reached the departmental head custodian by 5 P.M., call [phone] after 5 P.M. the day before your [...] Procedures: - YOU MUST HAVE A RESPONSIBLE FUNERAL PREARRANGEMENT COUNSELOR TAKE YOU HOME. A PRODUCTION CONTROL COORDINATOR OR FUND ACCOUNTING MANAGER CANNOT BE MADE A RESPONSIBLE FUNERAL PREARRANGEMENT COUNSELOR. - We recommend that a responsible person stays with you overnight to take care of you. - You cannot stay in a hotel alone after outpatient surgery. You will not be permitted to have yoursurgery, if you do not have someone to take care of you. If you already have an Advance Directive, please fax a copy to [phone] or email to for it to be [...] day. Max Marroquin PA-C documented in this encounterUniversity Hospitals Health System03-18-2024 NoteHNO ID: [id number] Author: LEV THOMPSON LPN Service: ? Author [...] patient have an advanced directive: No Does [facility] have a copy of the patient's advanced [...] prescribed by anesthesia, internal medicine, surgeon, or INSTRUMENTATION TECHNOLOGIST Stop NSAIDs, Aspirin (ASA), vitamins, herbal supplements, [...] jewelry, body piercing, makeup, contacts, lotions, nail solomon islander on fingers, or anything in hair on arrival to surgery Wear low healed shoes and loose fitting clothing Leave all valuables at home or with a family member Directions to [facility] Parking/parking validation on the day prior to [...] if after hours patient instructed to call boomboat operator and ask for disaster recovery consultant mill dresser resident. DENISA program offered to patient: Yes [...] Lev Thompson LPN [facility]03-[facility]-2024 History of Present illness Narrative* Lev [...] patient have an advanced directive: No Does [facility] have a copy of the patient's advanced [...] prescribed by anesthesia, internal medicine, surgeon, or INSTRUMENTATION TECHNOLOGIST Stop NSAIDs, Aspirin (ASA), vitamins, herbal supplements, [...] jewelry, body piercing, makeup, contacts, lotions, nail solomon islander on fingers, or anything in hair on arrival to surgery Wear low healed shoes and loose fitting clothing Leave all valuables at home or with a family member Directions to [facility] Parking/parking validation on the day prior to [...] patient, if after hours patientinstructed to call boomboat operator and ask for disaster recovery consultant mill dresser resident. DENISA program offered to patient: Yes [...] None Educator: Lev Thompson LPN [facility] documented in this encounterUniversity Hospitals Health System03-18-2024 Instructions* Patient Instructions* Lev Thompson LPN - 01/22/2024 11:22 AM EDT UROGYNECOLOGY PHYSICIAN CONTACT INFORMATION During business hours, these numbers connect to your doctor s office. During the evening and weekends, these numbers will connect you to the answering service to speak with the doctor disaster recovery consultant. Dr. Pam Wang After hours phone number: or toll free Ask the boomboat operator to page the 'mill dresser disaster recovery consultant.' Surgery Scheduling Office: Call the day before [...] vitamin E, herbal medications, diet pills, and uloz-eey-orgnxyq medications. Tylenol (acetaminophen) is okay. I will not wear jewelry, body piercing(s), makeup, nail solomon islander, hairpins, or contacts on the day ofsurgery. [...] my surgeon. Discuss medication changes with your battery checker or primary care physician as well. If I stopped taking my blood-thinning medication, I will ask the surgeon when to resume taking it. If I am an outpatient, a responsible person will drive me home and it was suggested that someone stay with me for 24 hours. I understand that a busperson or cabdriver is NOT a responsible caregiver. [...] surgery, I must call my surgical scrub technician after 2pm the day before surgery. PREOP INSTRUCTIONS THE DAY OF SURGERY/CHECK IN Report to DESK -9 for surgery. A map is located in Your Surgical Guide Book. The online version of the surgical guide book can be found at: [email or web address] The address is [address] [place] [address]/[place] [address] INFECTION PREVENTION Please notify your doctor if [...] Guide Book for more information. [facility] TEAM At the [facility], we have a multidisciplinary team of caregivers that includes fellows, residents, nurse practitioners, physician assistants, clinical nurse specialists, nurses, medical assistants, patient care nursing assistants, social workers, manager case management and many others. We all have different [...] MyChart for post-surgery concerns. documented in this encounterUniversity Hospitals Health System03-06-2024 History of Present illness Narrative* Cullen Dawkins MD - 01/10/2024 12:45 PM EST [facility] - [facility]NT [address] [place] [address], [address] [id number] SUBJECTIVE: Patient ID (1970): Mary Leal is [...] carcinoma (BCC) of chest 04/04/2023 Bipolar disorder ([facility]) Chronic interstitial cystitis 04/06/2023 Chronic sinusitis [...] COLONOSCOPY with bx's N/A 03/20/2020 Performed by Alberto Solis MD at [facility] ENDOSCOPY EGD, DILATATION N/A 09/25/2020 Performed by Alberto Solis MD at [facility] ENDOSCOPY ENDOSCOPIC DIAGNOSTIC DRUG INDUCED SLEEP Bilateral 09/19/2023 Performed by Cullen Dawkins MD at [facility] FOOT SURGERY 06/25/2020 left foot surgery FOOT SURGERY Right 10/2022 and 05/2023 HYSTERECTOMY 2015 LASER LINGUAL TONISILLECTOMY Circumferential 07/08/2021 Performed by Alexei Avila MD PhD at [facility] MRI FOOT LEFT NECK SURGERY 2017 PLANTAR FASCIECTOMY RELEASE PHARYNGEAL SCAR CPT 55189 Circumferential 07/08/2021 Performed by Alexei Avila MD PhD at [facility] RESECTION SUBMUCOSAL NASAL Bilateral 02/11/2021 Performed by Alexei Avila MD PhD at [facility] ROTATOR CUFF REPAIR Right SEPTOPLASTY Circumferential 02/11/2021 Performed by Alexei Avila MD PhD at [facility] TONSILLECTOMY Bilateral 02/11/2021 Performed by Alexei Avila MD PhD at [facility] TOTAL COLECTOMY 03/2022 uvuloplasty N/A 02/11/2021 Performed by Alexei Avila MD PhD at [facility] Family History Problem Relation Age of [...] in the morning. Indications: gastroesophageal reflux disease. gybzxjrxmvd-fgwvafyet-msydnfyx (TRELEGY ELLIPTA) 100-62.5-25 mcg blister with device Inhale 1 puff in the morning. 60 each 5 fremanezumab-vfrm (CO2StatsOVYnsect AUTOINJECTOR) 225 mg/1.5 mL inject 1 AND [...] mg 2.5 mg nebulization PRN Gwendolyn Stroud APRN-CHEMISTRY DEPARTMENT CHAIR REVIEW OF SYSTEMS: Review of Systems Data [...] this chart were generated using voice recognition [employer]*S[employer] dictation software. Although every effort was made to ensure the accuracy of this automated wool washer feeder, some errors in wool washer feeder may have occurred. Iam Siddiqi 01/10/24 0753 documented in this encounterMount Ascutney HospitalFamilonet03-06-2024 Instructions* Patient Instructions* Cullen Dawkins MD - [...] care. The instructions to gain access to [employer] are at the bottom of this summary. If you are not signed up for access to MY CHART and have not received notification of ANY test result within 7 days, please call [phone] to leave a request for your results. [...] Ultrasound, MRI or PET scan, please call [facility] Central Scheduling at [phone]. If you need to be scheduled for surgery, please call Aiden Augustin Surgery Coordinator at [phone], or Lazara at [phone] or our main number [phone] if you have not received a return [...] (and medications that contain aspirin): Many non-prescription (maqn-pkc-qdeunsx or OTC) medications contain aspirin. If you are unsure whether a medication you take has aspirin, please ask your pharmacist or your surgeon's office. You must ask your surgical team if they want you to continuetaking, or stop taking aspirin before your procedure. Medications containing aspirin that should be stopped 7 days before surgery: [place] Anacin Aspirin Fiorinal Ascriptin Carlos Bufferin Lortab [...] L-carnosine Licorice Kava kava Milk thistle Multivitamin [place]-3 Resveratrol Skullcap Sweet [place]'s wort Vitamin E Adipex (phentermine) Glenn (orlistat) Hydroxycut Garcinia Cambogia Raspberry Ketones Pywdycqg-G-92 should be stopped 14 days before surgery You will receive specific instructions regarding your insulin and anti-coagulant/anti-platelet medications (if applicable). documented in this [facility] [id number] Miscellaneous Notes* Telephone Encounter - Aiden Augustin - 12/27/2023 10:12 AM EST PATIENT NOTIFIED WITH SURGERY TIME OF 11:00. TOLD TO ARRIVE 2 HOURS PRIOR. documented in this [facility] [id number] Telephone encounter Note* Telephone Encounter - Aiden Augustin - 12/27/2023 10:12 AM EST PATIENT NOTIFIED WITH SURGERY TIME OF 11:00. TOLD TO ARRIVE 2 HOURS PRIOR. [facility] Social Intelligence [id number] Miscellaneous Notes* Telephone Encounter - Stacie Gonzalez [...] distance health visit in this department: 10/25/2021 Member Service Representative, Nurse Next visit in this department: 01/25/2024 documented in this encounterUniversity Hospitals Health System02-14-2024 History and physical note * Vilma Sutton APRN-CHEMISTRY DEPARTMENT CHAIR - 12/20/2023 11:45 AM EST PRE-ADMISSION TESTING HISTORY AND PHYSICAL EXAM DATE: 12/20/23 PCP: ELICEO GÓMEZ JR, DO CHIEF COMPLAINT: CHUCKEI (obstructive sleep apnea) HISTORY OF PRESENT ILLNESS: Mary Leal, a 53 y.o. White or female, presents to [facility] for a pre- surgical H&P for a [...] COLONOSCOPY with bx's N/A 03/20/2020 Performed by Alberto Solis MD at [facility] ENDOSCOPY EGD, DILATATION N/A 09/25/2020 Performed by Alberto Solis MD at [facility] ENDOSCOPY ENDOSCOPIC DIAGNOSTIC DRUG INDUCED SLEEP Bilateral 09/19/2023 Performed by Cullen Dawkins MD at [facility] FOOT SURGERY 06/25/2020 left foot surgery FOOT SURGERY Right 10/2022 and 05/2023 HYSTERECTOMY 2015 LASER LINGUAL TONISILLECTOMY Circumferential 07/08/2021 Performed by Alexei Avila MD PhD at [facility] MRI FOOT LEFT NECK SURGERY 2017 PLANTAR FASCIECTOMY RELEASE PHARYNGEAL SCAR CPT 50858 Circumferential 07/08/2021 Performed by Alexei Avila MD PhD at [facility] RESECTION SUBMUCOSAL NASAL Bilateral 02/11/2021 Performed by Alexei Avila MD PhD at [facility] ROTATOR CUFF REPAIR Right SEPTOPLASTY Circumferential 02/11/2021 Performed by Alexei Avila MD PhD at [facility] TONSILLECTOMY Bilateral 02/11/2021 Performed by Alexei Avila MD PhD at [facility] TOTAL COLECTOMY 03/2022 uvuloplasty N/A 02/11/2021 Performed by Alexei Avila MD PhD at [facility] FAMILY HISTORY: Family History Problem Relation Age [...] Indications: gastroesophageal reflux disease., Disp: , Rfl: vnghwdjevyw-kduhxklpg-jhhqukqy (TRELEGY ELLIPTA) 100-62.5-25 mcg blister with device, [...] 2.5 mg, nebulization, PRN, Gwendolyn Nicole Stroud, SWAMPER-CHEMISTRY DEPARTMENT CHAIR REVIEW OF SYSTEMS: Review of Systems Constitutional: [...] the most recent lab values available in [facility] at the time ofthe office visit and additional labs may have been drawn since that time. ASSESSMENT / DIAGNOSIS: CHUCKIE (obstructive sleep apnea) PLAN: Mary Leal is scheduled for Insertion Stimulator Nerve Hypoglossal - Right with Dr. Dawkins on01/02/2024. STELLA Duron 12/20/23 1240 [facility]02-14-2024 History and physical note* STELLA Duron - 12/20/2023 11:45 AM EST PRE-ADMISSION TESTING HISTORY AND PHYSICAL EXAM DATE: 12/20/23 PCP: ELICEO GÓMEZ JR, DO CHIEF COMPLAINT: CHUCKIE (obstructive sleep apnea) HISTORY OF PRESENT ILLNESS: Mary Leal, a 53 y.o. White or female, presents to [facility] for a pre- surgical H&P for a [...] COLONOSCOPY with bx's N/A 03/20/2020 Performed by Alberto Solis MD at [facility] ENDOSCOPY EGD, DILATATION N/A 09/25/2020 Performed by Alberto Solis MD at [facility] ENDOSCOPY ENDOSCOPIC DIAGNOSTIC DRUG INDUCED SLEEP Bilateral 09/19/2023 Performed by Cullen Dawkins MD at [facility] FOOT SURGERY 06/25/2020 left foot surgery FOOT SURGERY Right 10/2022 and 05/2023 HYSTERECTOMY 2015 LASER LINGUAL TONISILLECTOMY Circumferential 07/08/2021 Performed by Alexei Avila MD PhD at [facility] MRI FOOT LEFT NECK SURGERY 2017 PLANTAR FASCIECTOMY RELEASE PHARYNGEAL SCAR CPT 63508 Circumferential 07/08/2021 Performed by lAexei Avila MD PhD at [facility] RESECTION SUBMUCOSAL NASAL Bilateral 02/11/2021 Performed by Alexei Avila MD PhD at [facility] ROTATOR CUFF REPAIR Right SEPTOPLASTY Circumferential 02/11/2021 Performed by Alexei Avila MD PhD at [facility] TONSILLECTOMY Bilateral 02/11/2021 Performed by Alexei Avila MD PhD at [facility] TOTAL COLECTOMY 03/2022 uvuloplasty N/A 02/11/2021 Performed by Alexei Avila MD PhD at [facility] FAMILY HISTORY: Family History Problem Relation Age [...] Indications: gastroesophageal reflux disease., Disp: , Rfl: prgglvxuwyf-ycmyhjkuc-xjgxwxdx (TRELEGY ELLIPTA) 100-62.5-25 mcg blister with device, [...] mg, 2.5 mg, nebulization, PRN, Gwendolyn Stroud, SWAMPER-CHEMISTRY DEPARTMENT CHAIR REVIEW OF SYSTEMS: Review of Systems Constitutional: [...] the most recent lab values available in [facility] at the time ofthe office visit and additional labs may have been drawn since that time. ASSESSMENT / DIAGNOSIS: CHUCKIE (obstructive sleep apnea) PLAN: Mary Zoya Leal is scheduled for Insertion Stimulator Nerve Hypoglossal - Right with Dr. Dawkins on01/02/2024. STELLA Duron 12/20/23 1240 documented in this encounterUC Medical Center02-14-2024 Instructions* Patient Instructions* Earlene Whalen RN - 12/20/2023 11:45 AM EST Your surgery/procedure is scheduled at [facility] on 01/02/2024 Arrival Time Surgeon will call [facility] Address: [address] [place] [address], [facility], [address] Park in the Emergency Center Parking lot. Report to the front desk officer in the Emergency/Surgery Registration lobby of the hospital. Please call Pre-Admission Clinic at [phone] if you have any questions prior to surgery. For questions the morning of surgery, please call the Pre-op Department at [phone]. Notify your SURGEON if you develop any [...] [facility], please call [phone] ([phone]). Do not use lotions, creams, powders, perfume, make up, cologne or after-shaves day of surgery. Remove ALL jewelry including wedding rings, body piercings, hair extensions that contain metal, nail solomon islander, make-up, and contact lens. You may brush your teeth the morning of surgery, but do not swallow the water. Wear your dentures and partial plates to the hospital (no adhesive). Shower the night the before. If applicable, use the CHG (chlorhexidine gluconate) soap or wipes. Please be advised, [place] has transitioned to a cashless payment system. [...] RIGHTS AND RESPONSIBILITIES As a patient at [facility], you have the right to: Receive medical care and be informed of who is taking care of you Be treated with dignity and respect Have a family member/lead generation representative of choice and your physician notified of your admission Receive information and actively participate in decisions about your care and treatment Refuse care, treatment and services Decide who may provide your support and speak for you Access congregation and spiritual services Participate in ethical issues [...] of hospital charges and payment methods Patient/patient lead generation representative responsibilities are to: Provide information about [...] surgery in clean clothes. documented in this encounterProMedica Fostoria Community HospitalMark media Insight Surgical [id number] NoteHNO ID: [id number] Author: PAM WANG MD Service: ? Author [...] performance and is accurate and complete.[facility]01-03-2024 Miscellaneous Notes* Telephone Encounter - Emily Zamora - 11/08/2023 3:40 PM EST NURTEC PENDING WITH TEJADA [id number] documented in this encounterUC [facility] Center01-[facility]24 Telephone encounter Note* Telephone Encounter - Emily Zamora - 11/08/2023 3:40 PM EST NURTEC PENDING WITH TEJADA [id number] [facility]12-07-2023 NoteHNO ID: [id number] Author: Pam Wang MD Service: ? Author [...] Video-assisted cystourethroscopy was performed using a 19 Turkmen 70 and 30 degree rigid cystoscope with [...] PLAN: See progress note from todayMer[facility]12-05-2023 NoteHNO ID: [id number] Author: Pam Wang MD Service: ? Author [...] PFSH obtained by others. Pam Wang MD General Worker offered: Patient declines. OBJECTIVE: BP 102/60 General: [...] would like to move forward with PNE. Supercell packet given to patient today to review. [...] which included preparing to see the patient, bbop-wh-pisg patient care, completing clinical documentation, obtaining and/or reviewing separately obtained history, performing a medically appropriate examination, counseling and educating the patient/family/caregiver, and communicating with other HCP (more content not included)...[facility]11-27-2023 Miscellaneous Notes * Telephone Encounter - [...] sickness that she had before going to [place]. She states that she was going to [...] Poe LPN * Telephone Encounter - Hardik oPe LPN - 09/29/2023 12:47 PM EST Medication requested: FLUCONAZOLE 150 MG TABLET MEREDITH: 09/27/2023 Doris Arias APRN.[facility] ([facility]) ASSESSMENT: Mary Leal is a 53 [...] w/ Dr. Pam Wang documented in this encounterUniversity Hospitals Health System11-22-2023 NoteHNO ID: [id number] Author: Doris Arias APRN.CHEMISTRY DEPARTMENT CHAIR Service: ? Author Type: Nurse Practitioner Type: [...] ache and some malodorous urine. Patient in [place], unable to come in for visit. Has [...] urination is normal and pressure with urinating CHICKEN SEXER: denies abnormal vaginal bleeding, no vaginal discharge [...] Making Level: 3 - Low Doris Arias APRN.CNPMercy Health Fairfield Hospital11-22-2023 Miscellaneous Notes * Telephone Encounter - [...] which included preparing to see the patient, yhyk-gq-zhlb patient care, completing clinical documentation, obtaining and/or [...] Office will call to schedule cystoscopy. [facility] Main provided: Pam Wang Staff Physician, Department of Urogynecology and Pelvic Floor Disorders Worsening frequency and urgency of urination. Is a urine culture indicated? Please review/advise eLx Vieyra RN documented in this encounterUniversity Hospitals Health System11-06-2023 NoteHNO ID: [id number] Author: Jairon Lai MD Service: ? Author Type: Physician Type: Progress Notes Filed: 09/11/2023 1:18 PM Note Text: [facility] [...] elevated Pdet to void lower flow Jairon Vasavada, [facility]11-06-2023 NoteHNO ID: [id number] Author: Phil Beckford MD Service: ? Author [...] benefit from sling incision +/- discussion of [facility]10-07-2023 Emergency department Note* Avelino Scott RN - 08/12/2023 7:35 AM EDT Discharge, follow up, referral, and prescription information reviewed and explained; all questions and concerns addressed. Patient A/Ox3 in NAD, resp. easy unlabored upon discharge, escorted to exit by staff. [facility]10-07-2023 Emergency department Note* Avelino Scott RN - 08/12/2023 7:35 AM EDT Discharge, follow up, referral, and prescription information reviewed and explained; all questions and concerns addressed. Patient A/Ox3 in NAD, resp. easy unlabored upon discharge, escorted to exit by staff. * Monserrat Scales RN - 08/12/2023 7:05 AM EDT Report to Les GAMBINO * Lev Ritter APRN CHEMISTRY DEPARTMENT CHAIR - 08/12/2023 4:29 AM EDT Images from [...] gastroparesis, gastroenteritis, acute cholecystitis, pancreatitis, less likely LA The patient's initial and delta troponin are negative. EKG does not demonstrate any ischemic changes. Low suspicion for LA. Her urinalysis is negative for UTI. Urine [...] follow-up. She was instructed to call her centrifugal drier operator and PCP to schedule follow-up appointments. She was instructed to return to the emergency department if she has any new or worsening symptoms. Patient agreeable plan of care. Return precautions discussed at bedside. Spoke with Dr. Salmon regarding patient. Physician to complete their own physical exam and evaluation. Collaboration performed between this LEAD BURNER HELPER and physician regarding patient's plan of care. [...] following orders were created for panel order [place] Draw. Procedure Abnormality Status --------- ------ Gold Top[[id number]] Final result LIGHT BLUE TOP[[id number]] Final result Dark Green Top[[id number]] Final result Please view results for these tests on the individual orders. GOLD TOP LIGHT BLUE TOP DARK GREEN TOP TROPONIN I Records reviewed: Urogynecology telemedicine visit 08/07/2023 ENT visit 07/11/2023 Family medicine visit 07/06/2023 Lev Ritter APRN CNP 08/12/23722 * Jaren Lopez RN - 08/12/2023 4:21 AM EDT Emily at bedside * Moisés Duke RN - 08/12/2023 12:24 AM EDT Ambulates to triage with C/O sudden epigastric gnawing, burning pain that woke her from sleep. Alsoreports wheezing. States nausea. Denies fever. Alert. Respirations easy and unlabored. Skin PWD. NAD noted. documented in this encounterCorpus [facility]i [facility] Hospital Discharge instructions* Discharge Instructions* Lev Ritter [...] sent through Care Everywhere. * Abdominal Pain (Serbian Rwandan) documented in this encounterCorpus Christi [facility]10-07-[facility]23 Emergency department Note* Monserrat Scales RN - 08/12/2023 7:05 AM EDT Report to Les GAMBINO [facility]10-07-2023 Physician Emergency department Note* Lev Ritter APRN CHEMISTRY DEPARTMENT CHAIR - 08/12/2023 4:29 AM EDT Images from [...] gastroparesis, gastroenteritis, acute cholecystitis, pancreatitis, less likely LA The patient's initial and delta troponin are negative. EKG does not demonstrate any ischemic changes. Low suspicion for LA. Her urinalysis is negative for UTI. Urine [...] follow-up. She was instructed to call her centrifugal drier operator and PCP to schedule follow-up appointments. She was instructed to return to the emergency department if she has any new or worsening symptoms. Patient agreeable plan of care. Return precautions discussed at bedside. Spoke with Dr. Salmon regarding patient. Physician to complete their own physical exam and evaluation. Collaboration performed between this LEAD BURNER HELPER and physician regarding patient's plan of care. [...] following orders were created for panel order [place] Draw. Procedure Abnormality Status --------- ------ Gold Top[[id number]] Final result LIGHT BLUE TOP[[id number]] Final result Dark Green Top[[id number]] Final result Please view results for these tests on the individual orders. GOLD TOP LIGHT BLUE TOP DARK GREEN TOP TROPONIN I Records reviewed: Urogynecology telemedicine visit 08/07/2023 ENT visit 07/11/2023 Family medicine visit 07/06/2023 Lev Ritter APRN CNP 08/12/23722 [facility]10-07-2023 Emergency department Note* Jaren Lopez RN - 08/12/2023 4:21 AM EDT Emily at bedside [facility]10-07-2023 Emergency department Triage note* Moisés Duke RN - 08/12/2023 12:24 AM EDT Ambulates to triage with C/O sudden epigastric gnawing, burning pain that woke her from sleep. Alsoreports wheezing. States nausea. Denies fever. Alert. Respirations easy and unlabored. Skin PWD. NAD noted. [facility]10-02-2023 NoteHNO ID: [id number] Author: Pam Wang MD Service: ? Author [...] no Pain: no Abnormal Vaginal Discharge: no CHICKEN SEXER 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 She has no history of an abnormal mammogram with cysts on US LMP: No LMP recorded. Patient has had a hysterectomy.; Menopause 3 years ago; hysterectomy in 2015: Menstrual history: NA; Deliveries: I have confirmed and edited as necessary, the PFSH obtained by others. Pam Wang MD General Worker offered: Patient declines. OBJECTIVE (Virtual) There were [...] which included preparing to see the patient, xcyb-gn-ffsp patient care, completing clinical documentation, obtaining and/or reviewing separately obtained history, counseling and educating the patient/family/caregiver, ordering medications, tests, or procedures, and communicating with other HCPs (not separately reported). Pam Wang, [facility]09-25-2023 NoteHNO ID: [id number] Author: Nelsy Chávez APRN.[facility] Service: ? Author Type: Nurse Practitioner [...] new Pain: no Abnormal Vaginal Discharge: no CHICKEN SEXER 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 She has no history of an abnormal mammogram with cysts on US LMP: No LMP recorded. Patient has had a hysterectomy.; Menopause 3 years ago; hysterectomy in 2015: Menstrual history: NA; Deliveries: I have confirmed and edited as necessary, the PFSH obtained by others. Nelsy Chávez APRN.CHEMISTRY DEPARTMENT CHAIR General Worker offered: Patient declines. OBJECTIVE: There were no [...] which included preparing to see the patient, omtg-vp-ushs patient care, completing clinical documentation, performing a medically appropriate examination, counseling and educating the patient/family/caregiver and ordering medications, tests, or procedures.[facility]09-25-2023 History of Present illness Narrative* Nelsy Chávez APRN.KWESI - 07/31/2023 2:16 PM EDT Female Pelvic [...] new Pain: no Abnormal Vaginal Discharge: no CHICKEN SEXER 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 She has no history of an abnormal mammogram with cysts on US LMP: No LMP recorded. Patient has had a hysterectomy.; Menopause 3 years ago; hysterectomy in 2014:Menstrual history: NA; Deliveries: I have confirmed and edited as necessary, the PFSH obtained by others. Nelsy Chávez APRN.KWESI General Worker offered: Patient declines. OBJECTIVE: There were no [...] which included preparing to see the patient, nguw-ic-mxmm patient care, completing clinical documentation, performing a medically appropriate examination, counseling and educating the patient/family/caregiver and ordering medications, tests, or procedures. documented in this encounterUniversity Hospitals Health System06-21-2023 Evaluation note* Encounter Date Diagnosis Assessment Notes [...] writ ten by Wanda Yang LPN, Clinical Data Abstractor. Edited and approved by Dr. Beto Snyder MD. Frederic [employer] Other 06-06-2023 Miscellaneous Notes* Telephone Encounter - Serenity Joseph MA - 04/11/2023 10:19 AM EDT MEREDITH=10/11/22 Spoke with patient she does need a refill Medication pended please file Rx request if appropriate Patient and pharmacy verified documented in this encounterUniversity Hospitals Health System05-15-2023 Miscellaneous Notes* Telephone Encounter - Regina Philippe - 03/20/2023 2:50 PM EDT Should patient follow up via virtual visit to discuss further? * Telephone Encounter - Steffi Ross LPN - 03/20/2023 10:20 AM EDT Patient's stool tests came back normal. Steffi Ross LPN documented in this encounterUniversity Hospitals Health System04-18-2023 NotePROCEDURE: XR ANKLE RT MIN 3 VIEWS, [...] Electronically authenticated by: ZAIDA ACOSTA Date: 2023-02-21 10:15[facility]04-18-2023 NotePROCEDURE: XR ANKLE RT MIN 3 VIEWS, [...] Electronically authenticated by: ZAIDA ACOSTA Date: 2023-02-21 10:15[facility]03-28-2023 NotePROCEDURE: XR FOOT RT MIN 3 VIEWS [...] Electronically authenticated by: ZAIDA ACOSTA Date: 2023-01-31 11:55[facility]03-16-2023 Miscellaneous Notes* Telephone Encounter - Jennie Moreno RN - 01/19/2023 2:17 PM EDT Please review and advise patient. documented in this encounterUniversity Hospitals Health System03-13-2023 Miscellaneous Notes* Telephone Encounter - Mounika Roberto PA-C - 01/16/2023 1:08 PM EDT Patient was scheduled for virtual PACC appt at 1300 today. Patient did not check in for visit. Called patient at [phone] to see if they needed any assistance logging in and left voicemail. This message routed to PACC schedulers to contact patient to reschedule PACC appt. Mounika Roberto PA-C January 16, 2023 1:09 PM documented in this encounterUniversity Hospitals Health System03-13-2023 History and physical note * Mounika Roberto PA-C - 01/16/2023 1:00 PM EDT This is a virtual visit using orangutrans video visit. It required patient-provider interaction for themedical decision making as documented below. I have communicated my name and active licensure. The patient's identity and physical location wereverified at the time of this visit. Either the patient or their legal lead generation representative has been informed of the risks and benefits of and alternatives to treatment through a remote evaluation and consents to proceed with the evaluation remotely. Surgeon: Winston Hannah DO Type of surgery: GEN SURG: POP Patient scheduled for surgery on 02/08/23 . Surgery Location: [facility] Diagnosis: Preop examination (primary encounter [...] in the AM and 4 mg PM wuqokdkfdoh-rmctdttzk-yrgmocrk (TRELEGY ELLIPTA) 100-62.5-25 mcg Inhale 1 Puff [...] 16, 2023 12:36 PM documented in this encounterUniversity Hospitals Health System03-13-2023 Instructions* Patient Instructions* Mounika Roberto PA-C - 01/16/2023 12:38 PM EDT PATIENT PREOPERATIVE INSTRUCTIONS Winston Hannah DO has scheduled you for your procedure at this surgery center: [facility]: [phone] -- [facility], [place] [address]. Please read below carefully for your personalized [...] Procedures: - YOU MUST HAVE A RESPONSIBLE FUNERAL PREARRANGEMENT COUNSELOR TAKE YOU HOME. A PRODUCTION CONTROL COORDINATOR OR FUND ACCOUNTING MANAGER CANNOT BE MADE A RESPONSIBLE FUNERAL PREARRANGEMENT COUNSELOR. - We recommend that a responsible person [...] Advance Directive, please fax a copy to [phone] or email to for it to be [...] day. Mounika Roberto PA-C documented in this encounterUniversity Hospitals Health System03-08-2023 Miscellaneous Notes* Telephone Encounter - Berta Ann RN - 01/11/2023 9:47 AM EST Procedure pended for 02/08/23. Pt aware of need for PACC. Pre-op instructions reviewed, will send to pt's MC, per pt request. Postop appt scheduled. No other questions at this time. Berta HENSON, RN Specialty Building Serviceman documented in this encounterUniversity Hospitals Health System03-07-2023 History of Present illness Narrative* Winston Zoya Hannah, DO - 01/10/2023 9:09 AM EST Images from the original note were not included. Digestive Disease & Surgery [place] Gastroparesis/Dysmotility Follow Up This encounter was provided via two-way, live video teleconferencing within the guidelines of [facility] rules for new and established patients. The [...] of care. NAME: Mary Leal CLINIC NO: [id number] CHIEF COMPLAINT Idiopathic Gastroparesis HISTORY OF PRESENT [...] Normal gastric transit Normal small bowel transit [id number] transit in the distal bowel consistent delay [...] (FLONASE) 50 mcg/actuation nasal spray Use 1 Amberg in each nostril once daily. carBAMazepine XR [...] THE LUNGS every 4 hours if needed kmodtdiccgx-fdyxkrqix-rsmozcds (TRELEGY ELLIPTA) 100-62.5-25 mcg Inhale 1 Puff [...] dialysis. No history of symptoms or problems. CHICKEN SEXER: Negative for abnormal vaginal bleeding, abnormal vaginal [...] and plan of care. documented in this encounterUniversity Hospitals Health System02-23-2023 Miscellaneous Notes* Addendum Note - Yoni Tuttle MD - 12/29/2022 3:37 PM ESTAddended by: YONI TUTTLE MD on: 12/29/2022 03:37 PM Modules accepted: Orders documented in this encounterUniversity Hospitals Health System02-20-2023 History of Present illness Narrative* RT Елена(R) [...] 26, 2022 3:17 PM documented in this encounterUniversity Hospitals Health System02-17-2023 Miscellaneous Notes* Telephone Encounter - Erica Serrano RN - 12/23/2022 4:36 PM EST Message being addressed in another encounter that was forwarded to provider documented in this encounterUniversity Hospitals Health System02-16-2023 History of Present illness Narrative* Winston Hannah DO - 12/22/2022 8:52 AM EST Images from the original note were not included. Digestive Disease & Surgery [place] Gastroparesis/Dysmotility Follow Up This encounter was provided [...] completed esophagram NAME: Mary Leal CLINIC NO: [id number] CHIEF COMPLAINT Idiopathic Gastroparesis HISTORY OF PRESENT [...] chicken spaghetti etc. Duration of symptoms (months): [id number] Weight changes in last 3 months: Stable [...] Normal gastric transit Normal small bowel transit [id number] transit in the distal bowel consistent delay [...] (FLONASE) 50 mcg/actuation nasal spray Use 1 Amberg in each nostril once daily. carBAMazepine XR [...] THE LUNGS every 4 hours if needed tnfmhlumnkw-bxbsxbbcl-kkhmpnbw (TRELEGY ELLIPTA) 100-62.5-25 mcg Inhale 1 Puff [...] dialysis. No history of symptoms or problems. CHICKEN SEXER: Negative for abnormal vaginal bleeding, abnormal vaginal [...] and plan of care. documented in this encounterUniversity Hospitals Health System02-15-2023 NotePROCEDURE: XR FOOT RT MIN 3 VIEWS [...] Electronically authenticated by: ZAIDA ACOSTA Date: 2022-12-21 12:24[facility]02-09-2023 History of Present illness Narrative* Mary Obrien [...] in the AM and 4 mg PM wvixqswxhhc-ciczawurz-djpqfqoe (TRELEGY ELLIPTA) 100-62.5-25 mcg Inhale 1 Puff [...] which included preparing to see the patient, oaia-jo-yiub patient care, completing clinical documentation, obtaining and/or reviewing separately obtained history, counseling and educating the patient/family/caregiver, ordering medications, quincy ts, or procedures, communicating with other HCPs (not separately reported), independently interpreting results (not separately reported), communicating results to the patient/family/caregiver, and care coordination (not separately reported). Mary Obrien MD Colorectal Surgery documented in this encounterUniversity Hospitals Health System02-08-2023 Miscellaneous Notes* Telephone Encounter - Emily Benton RN - 12/14/2022 5:19 PM EST Several attempts to reach pt unsuccessful - MC sent. * Telephone Encounter - Barber Marie - 12/02/2022 8:39 AM EST SLEEP PHONE Name of caller: Mary Leal Relationship to patient : Self In-state or ghd-he-xzncr patient: In-State Was permission obtained from patient? Yes Patient identified by Name and Date of . ( Mary Leal, 1970). Yes Reason for Call : Patient said her and Emily was chatting through my chart and Emily calledher about 5:15 yesterday. Number to return call [phone] Okay to leave a message ? Yes Last office visit 10/14/[address] Tuttle virtual Next office visit 01/13/[address] Tuttle virtual documented in this encounterUniversity Hospitals Health System02-06-2023 Miscellaneous Notes* Telephone Encounter - Jet Wong [...] and follow up testing return call to [phone] documented in this encounterUniversity Hospitals Health System02-03-2023 Miscellaneous Notes* Telephone Encounter - MALAIKA Rosales [...] patient Summary: As noted Concerns: Procedure results Building Serviceman plan for next outreach: Will follow up Signature Nelsy Gilmore RN December 08, 2022 documented in this encounterUniversity Hospitals Health System01-30-2023 Nurse Note* Lisa Contreras RN - 12/05/2022 1:[address] [facility] ENDOSCOPY PRE PROCEDURE CALL Akiko. I'm calling from [facility] endoscopy to provide you with the information for your surgery/procedure tomorrow. Spoke to: Patient CONFIRM Procedure Planned with patient:Esophagogastroduodenoscopy(EGD) with or without biopies based on clinical findings, removal of polyps or lesions Are you familiar with where [facility] is located?yes Address [facility] Patient instructed to enter through the main hospital entrance off [address] at [address] through the revolving doors and check in at the main desk with your dedicated driver's license and insurance card.yes When anesthesia or sedation is being given: Patient instructed you must have an adult dedicated driver because you will not be able to work or drive for the rest of the day after your test.yes Can you please confirm the name and relationship of your dedicated driver. tbd What is the best number for your dedicated driver to be reached at tomorrow for updates? tbd Your dedicated driver is allowed to wait here with [...] Do not wear makeup, lotion, or finger solomon islander. yes Patient instructed: Please bring a [...] given Any barriers to Patient learning (confusion? 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 If patient needs to reschedule please call: [phone] [facility] phone number: [phone] Type of instruction given: Verbal by telephone contact. documented in this encounterUniversity Hospitals Health System01-27-2023 Nurse Note* Isra Harman RN - 12/02/2022 10:[address] [facility] ENDOSCOPY PRE PROCEDURE CALL Akiko. I'm calling from [facility] endoscopy to provide you with the information for your surgery/procedure tomorrow. Spoke to: Patient CONFIRM Procedure Planned with patient: Are you familiar with [place] [facility] [facility] is located?yes Address [address] Patient instructed to enter through the main hospital entrance off [address] at the [address] through the revolving doors and check in at the main desk with your dedicated driver's license and insurance card.yes When anesthesia or sedation is being given: Patient instructed you must have an adult dedicated driver because you will not be able to work or drive for the rest of the day after your test.yes Can you please confirm the name and relationship of your dedicated driver. Rich What is the best number for your dedicated driver to be reached at tomorrow for updates? [phone] Your dedicated driver is allowed to wait here with [...] Do not wear makeup, lotion, or finger solomon islander. yes Patient instructed: Please bring a [...] given Any barriers to Patient learning (confusion? 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 If patient needs to reschedule please call: [phone] [facility] phone number: [phone] Type of instruction given: Verbal by telephone contact. documented in this encounterUniversity Hospitals Health System01-26-2023 NotePROCEDURE: XR FOOT RT MIN 3 VIEWS, [...] Electronically authenticated by: ZAIDA ACOSTA Date: 2022-12-01 11:42[facility]01-26-2023 NotePROCEDURE: XR FOOT RT MIN 3 VIEWS, [...] Electronically authenticated by: ZAIDA ACOSTA Date: 2022-12-01 11:42[facility]01-25-2023 History of Present illness Narrative* Isra Masters, [...] in the AM and 4 mg PM xlclizpgxkn-kvklzhbrw-xjlkidlz (TRELEGY ELLIPTA) 100-62.5-25 mcg Inhale 1 Puff [...] no edema RESPIRATORY: No dyspnea : neg CHICKEN SEXER: neg The remainder of the review of [...] Isra Masters DO 11/30/2022 documented in this encounterUniversity Hospitals Health System01-19-2023 Miscellaneous Notes* Telephone Encounter - Erica Serrano RN - 11/24/2022 3:20 PM EST This concern was addressed in the phone encounter on 11/24/22. Patient was called back and informed PreAccess will complete Prior Authorization for her sleep study. documented in this encounterUniversity Hospitals Health System01-19-2023 Miscellaneous Notes* Telephone Encounter - Erica Serrano [...] Relationship to patient : Self In-state or gnv-sl-pkgmt patient: In-State Was permission obtained from patient? Yes Patient identified by Name and Date of . ( Mary Leal, 1970). Yes Reason for Call : Patient stated she spoke to her insurance and they told her that the provider need to call Deuce to see if a PA is needed for the PAP Titration. Number to return call [phone] Okay to leave a message ? Yes Last office visit 10/14/[address] Tuttle virtual Next office visit None documented in this encounterUniversity Hospitals Health System01-19-2023 History of Present illness Narrative* Isra Masters DO - 11/24/2022 8:29 AM EST Images from the original note were not included. codesyPill Test Report - [id number] Test start date: 11/17/2022 10:03 AM Mortgage Lender: josephine Interpretation date: 11/24/2022 Ordering physician: Isra Masters DO Referring physician: Patient Information Name: Mary Leal. ID: [id number] date: 1970 Height ft. in.: 5' 4 [...] Normal gastric transit Normal small bowel transit [id number] transit in the distal bowel consistent delay post anastomosis Signature _Dr. Masters Date _11/24/2022 documented in this encounterUniversity Hospitals Health System01-17-2023 Miscellaneous Notes* Telephone Encounter - Regina Philippe - 11/22/2022 3:37 PM EST Patient calling to verify that Smart Pill monitor was received at A30. Monitor was sent via [employer] on 11/19/22. Patient is requesting a confirmation. documented in this encounterUniversity Hospitals Health System01-16-2023 Miscellaneous Notes* Telephone Encounter - Erica Serrano RN - 11/21/2022 9:11 AM EST orangutrans message sent to patient. Prior Sleep study forwarded to MD to review, Order pended for PAP-titration for provider to review and sign if necessary. documented in this encounterUniversity Hospitals Health System01-16-2023 History and physical note * Yodit Back PA-C - 11/21/2022 8:00 AM EST PREANESTHESIA CONSULT CLINIC TELEHEALTH VISIT Patient has been identified by name and date of : Yes This is a virtual visit using orangutrans video visit. It require patient-provider interaction for [...] in the AM and 4 mg PM btifgbtcaar-mvdobcago-yadwwjol (TRELEGY ELLIPTA) 100-62.5-25 mcg Inhale 1 Puff as instructed once daily. No current facility-administered medications for this visit. COVID VACCINATION STATUS: Fully vaccinated REVIEW OF SYSTEMS: Pain Assessment: General: No weight loss, malaise or fevers. Neuro: No history of TIA's, stroke, ENVELOPE MACHINE OPERATOR tumor, impaired sensorium, hemiplegia, paraplegia or [...] requiring medication, no history of angina, CHF, LA, cardiac surgery or stents. Denies rest pain, gangrene or revascularization/amputation for PVD. No history of cardiovascular symptoms or problems. + HLD GI: See HPI : No history of dysuria, frequency or incontinence,, stones or chronic kidney disease CHICKEN SEXER: Negative for abnormal vaginal bleeding, abnormal vaginal [...] 8:07 AM PAGER/CONTACT #: documented in this encounterUniversity Hospitals Health System01-12-2023 Miscellaneous Notes* Addendum Note - Yoni Tuttle MD - 11/17/2022 3:16 PM ESTAddended by: YONI TUTTLE MD on: 11/17/2022 03:16 PM Modules accepted: Orders * Telephone Encounter - Yoni Tuttle MD - 11/17/2022 3:11 PM EST 09/22/22: PSG from [facility]: Total (RDI) AHI by 3% desat 27.1, [...] - 11/02/2022 12:33 PM EST Received from [facility] Report via fax. 8 pages indexed to chart. documented in this encounterUniversity Hospitals Health System01-12-2023 History of Present illness Narrative* Annmarie Gillespie [...] complete. You will be wearing a Data Teacher Selection Specialist around your neck like a necklace during the test. You must keepthis near you at all times. The Data Teacher Selection Specialist has an EVENT button. You will [...] is inside your body. Return the Data Teacher Selection Specialist to the [facility] after your test is completed. Brittanie Gillespie RN documented in this encounterUniversity Hospitals Health System01-09-2023 NotePROCEDURE: XR FOOT RT MIN 3 VIEWS [...] Electronically authenticated by: ZAIDA ACOSTA Date: 2022-11-14 10:39[facility]01-05-2023 NotePROCEDURE: XR FOOT RT MIN 3 VIEWS [...] Electronically authenticated by: NICKI DACOSTA Date: 2022-11-10 11:44[facility]01-05-2023 Miscellaneous Notes* Telephone Encounter - Annmarie Gillespie RN - 11/10/2022 9:07 AM EST Telephoned patient with SmartPill procedure appointment reminder/instructions. Brittanie Gillespie RN documented in this encounterUniversity Hospitals Health System01-04-2023 Miscellaneous Notes* Telephone Encounter - Regina Philippe [...] AM EST Patient calling. She saw Dr. Mastesr on 10/11. He had ordered smart pill [...] on hold on 01/03 at 1030 [facility]. documented in this encounterUniversity Hospitals Health System01-04-2023 Miscellaneous Notes* Telephone Encounter - Wali Doll - 11/09/2022 9:47 AM EST SENT PATIENTS RX TO PREFERRED LOCATION [facility] [phone] Wali Doll ANESTHESIOLOGY RESIDENT documented in this encounterUniversity Hospitals Health System01-03-2023 Miscellaneous Notes* Telephone Encounter - Regina Philippe - 11/08/2022 11:15 AM EST Per Soumya in provider services at [facility]. No prior auth is needed,coverage is active, patient can proceed with Smart Pill. Placed a new referral. Call Ref # [id number] * Telephone Encounter - Regina Philippe - 11/02/2022 3:51 PM EST Spoke with patient. Smart Pill is a covered benefit. Sent email to Smart Pill head custodian and [facility] to assist in scheduling Smart Pill [...] procedure, she can call Earlene Martin at [phone]. documented in this encounterUniversity Hospitals Health System12-19-2022 Miscellaneous Notes* Telephone Encounter - Steffi Ross [...] calling: self Call patient at: at home [phone] (home) [phone] (cell) Closing statement: Symptom Call: Thank you for calling [facility], your call is very important. A nurse will call in approximately 2-4 hours during business hours. If this is an emergency, please contact 911. Nati Hernandez documented in this encounterUniversity Hospitals Health System12-13-2022 Miscellaneous Notes* Telephone Encounter - Brooklyn Valle LPN - 10/18/2022 2:43 PM EST Requested Prescriptions Pending Prescriptions Disp Refills Dexlansoprazole 60 mg CpDM [Pharmacy Med Name: DEXLANSOPRAZOLE DR 60 MG CAP] 30 capsule 5 Sig: take 1 capsule by mouth before breakfast Patient last seen 10/11/2022 documented in this encounterUniversity Hospitals Health System12-12-2022 NotePROCEDURE: XR FOOT RT MIN 3 VIEWS, [...] Electronically authenticated by: NICKI DACOSTA Date: 2022-10-17 18:06[facility]12-12-2022 NotePROCEDURE: XR FOOT RT MIN 3 VIEWS, [...] Electronically authenticated by: NICKI DACOSTA Date: 2022-10-17 18:06[facility]12-12-2022 Miscellaneous Notes* Telephone Encounter - Wali Doll - 10/17/2022 9:17 AM EST Faxed order, office notes, demographics, and sleep study to: DME name: [facility] fax: [phone] DME ph: ALSO SENT A REQUEST FOR PTS PSG FROM [email or web address] IN [place] documented in this encounterUniversity Hospitals Health System12-06-2022 History of Present illness Narrative* Isra Masters, [...] (FLONASE) 50 mcg/actuation nasal spray Use 1 Amberg in each nostril once daily. carBAMazepine XR (TEGRETOL XR) 400 mg 12 hr tablet Take 400 mg by mouth q 12 HR. ARIPiprazole (ABILIFY) 30 mg tablet Take 30 mg by mouth once daily. albuterol HFA (PROVENTIL HFA, VENTOLIN HFA) 90 mcg/actuation inhaler inhale 2 puffs by mouth INTO THE LUNGS every 4 hours if needed fcpvfqkyczi-dfcbatrpg-rdaclofn (TRELEGY ELLIPTA) 100-62.5-25 mcg Inhale 1 Puff [...] no edema RESPIRATORY: No dyspnea : neg CHICKEN SEXER: neg The remainder of the review of [...] Isra Masters DO 10/11/2022 documented in this encounterUniversity Hospitals Health System12-05-2022 Evaluation note* Encounter Date Diagnosis Assessment Notes [...] for rotator cuff healing or recurrent tear ASSUR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 Other 12-01-2022 Evaluation note* Encounter Date Diagnosis [...] writ ten by Wanda Yang LPN, Clinical Data Abstractor. Edited and approved by Dr. Beto Snyder MD. Frederic [employer] Other 11-17-2022 Evaluation note* Encounter Date Diagnosis [...] writ ten by Lupillo Amezquita MA, Clinical Data Abstractor. Edited and approved by Dr. Beto Snyder MD. ASSUR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 Other 11-17-2022 Evaluation note* Encounter Date Diagnosis Assessment Notes Treatment Notes Treatment Clinical Notes Sep, Lumbosacral spondylosis without myelopathy (ICD-10 - M47.817) ASSUR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 Other 11-09-2022 Evaluation note* Encounter Date Diagnosis [...] writ ten by Wanda Yang LPN, Clinical Data Abstractor. Edited and approved by Dr. Beto Snyder MD. ASSUR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 Other 09-21-2022 NotePROCEDURE: XR ANKLE RT MIN 3 VIEWS, XR FOOT RT MIN 3 VIEWS COMPARISON: 01/06/2021 HISTORY: Pain of right ankle joint FINDINGS: BONES:Remote osteotomy head of the first metatarsal fixed with a single screw. No acute fracture or dislocation. SOFT TISSUES:Negative. No visible soft tissue swelling. EFFUSION:None visible. OTHER: Negative. IMPRESSION: No acute abnormality Electronically authenticated by: NICKI DACOSTA Date: 2022-07-27 19:[address] [place], [place] [address]8109-21-2022 NotePROCEDURE: XR ANKLE RT MIN 3 VIEWS, XR FOOT RT MIN 3 VIEWS COMPARISON: 01/06/2021 HISTORY: Pain of right ankle joint FINDINGS: BONES:Remote osteotomy head of the first metatarsal fixed with a single screw. No acute fracture or dislocation. SOFT TISSUES:Negative. No visible soft tissue swelling. EFFUSION:None visible. OTHER: Negative. IMPRESSION: No acute abnormality Electronically authenticated by: NICKI DACOSTA Date: 2022-07-27 19:[address] [place], [place] 2458109-20-2022 Miscellaneous Notes* Telephone Encounter - Silvia Saundersruby - 07/26/2022 2:56 PM EDT PA for Dexlansoprazole initiated electronically. Awaiting response [employer] ID# [id number] * Telephone Encounter - Tracy Khan PSS - 07/26/2022 1:43 PM EDT Patient needs a prior authorization Medication Order name: Dexlansoprazole 60 mg CpDM Medication: DEXLANSOPRAZOLE 60 MG CAPSULE,BIPHASE DELAYED RELEASE [[id number]] Dispense as Written: No documented in this encounterUniversity Hospitals Health System09-20-2022 History of Present illness Narrative* Mary Obrien [...] in the AM and 4 mg PM axlqloiaosz-ekqxnkyje-dzsmhqnd (TRELEGY ELLIPTA) 100-62.5-25 mcg Inhale 1 Puff [...] (FLONASE) 50 mcg/actuation nasal spray Use 1 Amberg in each nostril once daily. carBAMazepine XR [...] which included preparing to see the patient, qeqb-ay-adov patient care, completing clinical documentation, obtaining and/or reviewing separately obtained history, performing a medically appropriate examination, counseling and educating the pat ient/family/caregiver, ordering medications, tests, or procedures, and care coordination (not separately reported). Mary Obrien MD Colorectal Surgery documented in this encounterUniversity Hospitals Health System09-20-2022 Nurse Note* Re Sierra MA - 07/26/2022 11:12 AM EDT What is the reason for your visit today? Established patient presents for post op. Who is your referring physician? Are you having poor oral intake? NO Have you had unintentional weight loss of 15 lbs/7 Kg in the last 3-6 months? NO Bowels: Wound: none Temperature: No Drains: No documented in this encounterUniversity Hospitals Health System08-04-2022 NotePROCEDURE: In the coronal projection, without intravenous [...] and signed by Quinton Carson on 06/09/[address] [place], [place] [address]808-02-2022 Miscellaneous Notes* Telephone Encounter - Raquel Mullen - 06/07/2022 3:34 PM EDT [facility]. The previous was sent to pharmacy [...] process accordingly. Raquel Mullen documented in this encounterUniversity Hospitals Health System07-21-2022 Evaluation note* Encounter Date Diagnosis Assessment Notes [...] writ ten by Lupillo Amezquita MA, Clinical Data Abstractor. Edited and approved by Dr. Beto Snyder MD. ASSUR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 Other 07-05-2022 Evaluation note* Encounter Date Diagnosis [...] Patient care instructions given in writing by [facility] At Home document. ASSUR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 Other [id number] Miscellaneous Notes* Telephone Encounter - Jet Wong [...] concerns at this time. documented in this encounterUniversity Hospitals Health System06-21-2022 Miscellaneous Notes* Telephone Encounter - Jet Wong [...] procedure on 03/28. Thanks! documented in this encounterUniversity Hospitals Health System06-17-2022 History of Present illness Narrative* Jessi Sheets APRN.CHEMISTRY DEPARTMENT CHAIR - 04/22/2022 12:20 PM EDT COLORECTAL SURGERY [...] (FLONASE) 50 mcg/actuation nasal spray Use 1 Amberg in each nostril once daily. carBAMazepine XR [...] THE LUNGS every 4 hours if needed zwpnwzszlzz-ebubdyybe-niczcxoo (TRELEGY ELLIPTA) 100-62.5-25 mcg Inhale 1 Puff [...] complications of treatment plan: low Jessi Sheets APRN.CHEMISTRY DEPARTMENT CHAIR Colorectal Surgery documented in this encounterUniversity Hospitals Health System06-17-2022 Nurse Note* Mary Mena MA - 04/22/2022 12:06 PM EDT .What is the reason for your visit today? Post op Who is your referring physician? Self Are you having poor oral intake? NO Have you had unintentional weight loss of 15 lbs/7 Kg in the last 3-6 months? NO Bowels: regular Wound: none Temperature: No Drains: No documented in this encounterUniversity Hospitals Health System06-02-2022 Miscellaneous Notes* Telephone Encounter - Rachael - 04/07/2022 12:35 AM EDT Record ID: [id number] Patient name: Mary Leal Date: [birth year] [...] likely is it that you would recommend [facility] to a friend or family member? -> likely Please tell me what you liked best about your hospital experience: -> The nurses documented in this encounterUniversity Hospitals Health System05-31-2022 NoteHNO ID: [id number] Author: Pravin Ladd MD Service: Colorectal Author Type: Resident Type: Progress Notes Filed: 04/05/2022 7:52 AM Note Text: COLORECTAL SURGERY PROGRESS NOTE Mary Leal [id number] ASSESSMENT AND PLAN Mary Leal is a [...] - General Pravin Ladd MD General Surgery residentSaugus General HospitalXlmshfan59-20-3597 NoteHNO ID: [id number] Author: Nita Lamas MD Service: Colorectal Author Type: Fellow Type: Progress Notes Filed: 04/04/2022 9:40 AM Note Text: COLORECTAL SURGERY PROGRESS NOTE Mary Leal [id number] ASSESSMENT AND PLAN Mary Leal is a [...] Nita Lamas MD Colorectal Fellow 04/04/2022 9:40 [facility]05-29-2022 NoteHNO ID: [id number] Author: Pravin Ladd MD Service: Colorectal Author Type: Resident Type: Progress Notes Filed: 04/03/2022 8:03 AM Note Text: COLORECTAL SURGERY PROGRESS NOTE Mary Leal [id number] ASSESSMENT AND PLAN Mary Leal is a [...] - General Pravin Ladd MD General Surgery ResidentSaugus General HospitalWkaaesfv30-40-9343 NoteHNO ID: [id number] Author: Nancy Cadena MD Service: Colorectal Author Type: Resident Type: Progress Notes Filed: 04/02/2022 8:34 AM Note Text: COLORECTAL SURGERY PROGRESS NOTE Mary Kenny Elvis [id number] ASSESSMENT AND PLAN Mary Leal is a [...] Nancy Cadena MD General Surgery Resident, PGY-2 [id number] NoteHNO ID: [id number] Author: Nancy Cadena MD Service: Colorectal Author Type: Resident Type: Progress Notes Filed: 04/01/2022 7:15 AM Note Text: Attestation signed by Mary Obrien MD at 04/01/2022 7:21 PM [facility] STAFF PHYSICIAN NOTE OF PERSONAL INVOLVEMENT [...] 2022 COLORECTAL SURGERY PROGRESS NOTE Mary Leal [id number] ASSESSMENT AND PLAN Mary Zoya Leal is [...] Nancy Cadena MD General Surgery Resident, PGY-2 [id number] [id number] NoteHNO ID: [id number] Author: Yolanda Lamb MD Service: Colorectal Author Type: Resident Type: Progress Notes Filed: 03/31/2022 9:08 AM Note Text: COLORECTAL SURGERY PROGRESS NOTE Mary Leal [id number] ASSESSMENT AND PLAN Mary Leal is a [...] RESECTION AND ANASTOMOSIS - General Yolanda Lamb MDSaugus General HospitalCxyadjof10-43-8129 NoteHNO ID: [id number] Author: Pravin Ladd MD Service: Colorectal Author Type: Resident Type: Progress Notes Filed: 03/30/2022 9:02 AM Note Text: Attestation signed by Mary Obrien MD at 03/30/2022 4:01 PM [facility] STAFF PHYSICIAN NOTE OF PERSONAL INVOLVEMENT [...] 2022 COLORECTAL SURGERY PROGRESS NOTE Mary Leal [id number] ASSESSMENT AND PLAN Mary Leal is a 51 year old female with PMHx Asthma, HTN, BPD, Dyslipidemia and colonic inertia who is now s/p Hand assisted TAC, EI takedown + OANH 03/28 - D/C QUALITY ASSURANCE ASSOCIATE - Advance to GI soft diet - [...] W/ RESECTION AND ANASTOMOSIS - General Zane Hullirview Knxneale75-07-3549 NoteHNO ID: [id number] Author: ELIZABETH Dias Service: Care Management Author Type: Environmental Protection Geologist Type: Care Mgt Initial Assessment Filed: 03/29/2022 [...] time ADVANCE DIRECTIVES Current Advance Directive: None Diversified Crops I Farmworker Attempted to Assist with AD Completion: Yes [...] Housing Stability: Not on file PATIENT SCREEN Patient/Manager Core Stated Goals: To be cured/healed Under the [...] March 29, 2022 TIME: 3:45 PM PHONE: [phone] [id number] NoteHNO ID: [id number] Author: Pravin Ladd MD Service: Colorectal Author Type: Resident Type: Progress Notes Filed: 04/01/2022 5:50 AM Note Text: COLORECTAL SURGERY PROGRESS NOTE Mary Leal [id number] ASSESSMENT AND PLAN Mary Leal is a 51 year old female with PMHx Asthma, HTN, BPD, Dyslipidemia and colonic inertia who is now s/p Hand assisted TAC, EI takedown + OANH 03/28 - QUALITY ASSURANCE ASSOCIATE for pain control - Magnesium replacement for [...] RESECTION AND ANASTOMOSIS - General Pravin Ladd MDSaugus General HospitalIcdywasw76-30-9560 NoteHNO ID: [id number] Author: Nathanael Craig DO Service: Anesthesiology Author Type: Anesthesiologist Type: Anesthesia Procedure Notes Filed: 03/28/2022 4:16 PM Note Text: ANESTHESIOLOGY PROCEDURE NOTE Peripheral Nerve Block General Information Procedure Start Time/Medication Administration: 03/28/2022 3:50 PM Procedure End time: 03/28/2022 3:55 PM Patient location during procedure: OR Timeout Performed Pre-procedure: timeout performed Consent Obtained: Yes 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: care donor services team leader and arm band Reason for [...] 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 and care donor services team leader Reason for block: post-op pain [...] March 28, 2022 TIME: 4:14 PM CSN: [id number] NoteHNO ID: [id number] Author: Carmen Stanley APRN.LEATHER STAKER Service: Anesthesiology Author Type: Nurse Can Sealer Type: Anesthesia Procedure Notes Filed: 03/28/2022 9:49 AM Note Text: ANESTHESIOLOGY PROCEDURE NOTE Airway General Information Procedure Start Time/Medication Administration: 03/28/2022 9:21 AM Patient location during procedure: OR 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, care donor services team leader and patient Staffing LEATHER STAKER: Carmen Stanley APRN.LEATHER STAKER Performed by: LEATHER STAKER Indications and Patient Condition Preoxygenated: yes Difficult [...] March 28, 2022 TIME: 9:49 AM CSN: [id number] NoteHNO ID: [id number] Author: Carmen Stanley APRN.CRNA Service: Anesthesiology Author Type: Nurse Can Sealer Type: Anesthesia Procedure Notes Filed: 03/28/2022 9:49 [...] Imaging Guidance Used: No SIGNATURE: Carmen Stanley APRN.LEATHER STAKER PATIENT NAME: Mary Leal DATE: March 28, 2022 TIME: 9:48 AM CSN: [id number] Miscellaneous Notes* Telephone Encounter - Jet Wong [...] colon. Would like a call back at [phone] documented in this encounterUniversity Hospitals Health System05-10-2022 Miscellaneous Notes* Telephone Encounter - Jennie Moreno RN - 03/15/2022 2:39 PM EDT Outside medical record EGD H Pylori biopsy received by fax. Scanned into [employer] under scanned documents. Hard copy handed to Dr. Masters. Per Dr Masters- please call patient and let her know the H Pylori biopsy is negative. Called patient . Message relayed. No questions at this time. * Telephone Encounter - Karthikeyan Turk RN - 03/15/2022 2:21 PM EDT Called [facility] and I was transferred to medical records. Requesting a cover sheet with the request result be faxed to them at [phone]. H Pylori result request faxed with confirmation. * Telephone Encounter - Karthikeyan Turk RN - 03/15/2022 2:21 PM EDT Images from the original note were not included. DO Leo Mariano Sp Ddsi Clinical Pool Please contact [facility] [phone] to see if the H pylori biopsy is back yet from her EGD there documented in this encounterUniversity Hospitals Health System05-10-2022 Evaluation note* Encounter Date Diagnosis Assessment Notes [...] writ ten by Wanda Yang LPN, Clinical Data Abstractor. Edited and approved by Dr. Beto Snyder MD. Frederic [employer] Other 05-10-2022 Miscellaneous Notes* Telephone Encounter - Silvia Ybarra - 03/15/2022 1:24 PM EDT PA for Dexilant renewal initiated through [employer]. Awaiting response ID# [id number] Rx BIN [id number] Rx PCN MCAIDOH Rx Grp [id number] documented in this encounterUniversity Hospitals Health System05-10-2022 Miscellaneous Notes* Telephone Encounter - Jet Wong RN - 03/15/2022 9:28 AM EDT She called the office with complaints of dark red blood in her ostomy bag for the last 2 weeks. [place] it [place]. She had an EGD in [place] that showed gastritis. She followed up with [...] concerns at this time. documented in this encounterUniversity Hospitals Health System05-10-2022 History of Present illness Narrative* Isra Masters, [...] seem be musculoskeletal in nature.EGD done in [facility] showed some gastritis and duodenitis. [...] (FLONASE) 50 mcg/actuation nasal spray Use 1 Amberg in each nostril once daily. carBAMazepine XR [...] THE LUNGS every 4 hours if needed ohzhywmnbyu-azlrttxhc-utccadvj (TRELEGY ELLIPTA) 100-62.5-25 mcg Inhale 1 Puff [...] no edema RESPIRATORY: No dyspnea : neg CHICKEN SEXER: neg The remainder of the review of [...] Isra Masters DO 03/15/2022 documented in this encounterUniversity Hospitals Health System05-09-2022 Instructions* Patient Instructions* Urmila Alexander APRN.CHEMISTRY DEPARTMENT CHAIR - 03/14/2022 10:43 AM EDT PATIENT PREOPERATIVE INSTRUCTIONS Mary Obrien MD has scheduled you for your procedure at this surgery center: [facility]: [phone] --[address] [address]. Please check in on the1st floor at [...] Procedures: - YOU MUST HAVE A RESPONSIBLE FUNERAL PREARRANGEMENT COUNSELOR TAKE YOU HOME. A PRODUCTION CONTROL COORDINATOR OR FUND ACCOUNTING MANAGER CANNOT BE MADE A RESPONSIBLE FUNERAL PREARRANGEMENT COUNSELOR. - We recommend that a responsible person [...] Advance Directive, please fax a copy to [phone] or email to for it to be [...] your chart that day. documented in this encounterUniversity Hospitals Health System05-09-2022 History and physical note * Urmila Alexander [...] fevers. Neurological: No history of TIA's, stroke, ENVELOPE MACHINE OPERATOR tumor, impaired sensorium, hemiplegia, paraplegia orquadraplegia. [...] > 1 time per night or hematuria. CHICKEN SEXER: Negative for abnormal vaginal bleeding, abnormal vaginal [...] every 4 hours if needed Taking Yes fhlzrkjbsun-eslgakjkk-zrgizjgb (TRELEGY ELLIPTA) 100-62.5-25 mcg Inhale 1 Puff [...] (FLONASE) 50 mcg/actuation nasal spray Use 1 Amberg in each nostril once daily. No medication [...] or any previous visit (from the past 61608 hour(s)). EKG: Assessment HTN (hypertension) Assessment: Managed [...] of difficult airway No abnormal airway history [id number] Score: Age: <65 Sex: Female Hypertension history: [...] 10:30 AM PAGER/CONTACT #: documented in this encounterUniversity Hospitals Health System04-25-2022 Miscellaneous Notes* Telephone Encounter - Isra Masters [...] Monday, 03/02, at 0900 - routed to [employer] to make it legit. Please advise. documented in this encounterUniversity Hospitals Health System04-15-2022 Instructions* Patient Instructions* Nelsy Chávez APRN.CNP - 02/18/2022 1:18 PM EDT Healing as expected from surgery. You have a pinpoint area of suture just under the vaginal epithelium surface that may need more time to fully heal. Please call the office if you would like to try vaginal estrogen cream or with any questions/concerns. documented in this encounterUniversity Hospitals Health System04-15-2022 History of Present illness Narrative* Nelsy Chávez [...] no Pain: no Abnormal Vaginal Discharge: no CHICKEN SEXER HISTORY: Last pap: cannot remember; Last mammogram: She has never had a mammogram LMP: No LMP recorded. Patient has had a hysterectomy.; Menopause n/a: Menstrual history: NA; Deliveries: I have confirmed and edited as necessary, the PFSH obtained by others. Nelsy Chávez APRN.KWESI General Worker offered: Patient declines. OBJECTIVE: There were no [...] estrogen Nelsy Chávez APRN.KWESI documented in this encounterUniversity Hospitals Health System04-08-2022 History of Present illness Narrative* Flaac Bartholomew, PT - 02/11/2022 10:42 AM EDT [...] 15 Flaca Bartholomew PT documented in this encounterUniversity Hospitals Health System04-05-2022 Nurse Note* Re Sierra MA - 02/08/2022 [...] Temperature: No Drains: No documented in this encounterUniversity Hospitals Health System04-05-2022 History of Present illness Narrative* Mary Obrien [...] (FLONASE) 50 mcg/actuation nasal spray Use 1 Amberg in each nostril once daily. carBAMazepine XR [...] THE LUNGS every 4 hours if needed gshmjwylrws-cyymlemic-sdkmaynn (TRELEGY ELLIPTA) 100-62.5-25 mcg Inhale 1 Puff [...] medical complications of surgery including DVT/PE, PNA, LA, stroke, and . The patient understands these risks and is in agreement with proceeding. Medical Decision Making: Data Reviewed: Tests & Documents Reviewed/ordered: Review of prior notes from myself, OR, Dr. Wang Review of prior operative reports I have discussed Mary Leal's treatment plan and/or results with the patient. Mary Obrien MD Colorectal Surgery documented in this encounterUniversity Hospitals Health System04-05-2022 History of Present illness Narrative* Magali Mitchell, SWAMPER.[facility] - 02/08/2022 11:04 AM EDT [...] you received about pain medications helpful? Yes General Worker offered:Patient declines OBJECTIVE: BP 113/76 Pulse 74 [...] 6 month Patient expressed understanding. Magali Mitchell APRN.CHEMISTRY DEPARTMENT CHAIR documented in this encounterUniversity Hospitals Health System03-29-2022 Miscellaneous Notes* Telephone Encounter - Steffi Ross LPN - 02/01/2022 11:08 AM EDT [facility] 06-10-21 Pharmacy and Rx request verified. Please file if appropriate. Thank you Steffi Ross LPN documented in this encounterUniversity Hospitals Health System03-28-2022 NoteHNO ID: [id number] Author: Newton Woodward, PT Service: ? Author [...] Service Patient transferring care to: [facility] Flaca Bartholomew SUBJECTIVE: Patient Reason for Visit: [...] untimed codes) : 40 Newton Woodward PT, [facility]03-28-2022 History of Present illness Narrative* Newton Woodward, PT - 01/31/2022 10:42 AM EDT Episode Visit Count: 3 Therapist That Will Oversee The Plan Of Care: La then transfer to RalphmoffatFlaca Start of Care Date: 01/18/22 Onset Date: [...] Service Patient transferring care to: [facility] Flaca Bartholomew SUBJECTIVE: Patient Reason for Visit: [...] Newton Woodward PT, DPT documented in this encounterUniversity Hospitals Health System03-21-2022 NoteHNO ID: [id number] Author: Newton Woodward PT Service: ? Author [...] untimed codes) : 45 Newton Woodward PT, [facility]03-15-2022 NoteHNO ID: [id number] Author: Jessi Simms, PT Service: ? Author Type: Physical Therapist [...] Planned: 8 Planned Treatment Interventions: Therapeutic exercise (41385);Neuromuscular re-education (77181);Manual therapy (64343);Therapeutic activities (03668);Self-intermediate management (06845);Patient/Family/Caregiver Education PLAN FOR NEXT VISIT: PFM dynamics; biofeedback Patient demonstrates good understanding of plan of care and treatment. The above goals and plan of care were discussed and agreed upon by patient/family. Transfer of Care Due To: Closer to Home (patient to transfer in February 2022) Patient transferring care to: [facility] Flaca Bartholomew SUBJECTIVE: Mary Leal is a [...] function/quality of life. 52 (more content not included)...[facility] HospitalBrkaoefz95-69-1874 NoteHNO ID: [id number] Author: Moni Munguia RN Service: Care Management Author Type: Registered Nurse Type: Care Mgt Progress Note Filed: 12/27/2021 4:17 PM Note Text: CARE MANAGEMENT DISCHARGE NOTE SERVICE DATE: 12/27/2021 SERVICE TIME: 4:14 PM LOS: 3 days Admission Date: 12/24/2021 DISCHARGE ARRANGEMENT (list agency and phone number) Discharge Arrangement: Home with Home Health Provider Name: [address] CAREGIVER ASSESSMENT: HANDOFF COMMUNICATION: Handoff to: Primary Care Physician Primary Care Physician Name/Phone: Eliceo Gómez Jr [phone] TRANSPORTATION ARRANGEMENTS: Transportation Arrangements: N/A The Pt is accepted by [address] for new ostomy care. The SOC will be within 24 to 48 hrs. The pt will be contacted directly with the SOC. The Pt verbalized agreement with this dc plan. SIGNATURE: Moni Munguia RN PATIENT NAME: Mary Leal DATE: December 27, 2021 TIME: 4:14 PM PAGER/CONTACT #: [phone] NoteHNO ID: [id number] Author: Parish Celeste DO Service: Colorectal Author [...] - Pain and nausea control -> d/c QUALITY ASSURANCE ASSOCIATE - D/c entereg - Culturelle - Continue [...] 0659 12/27/21 07 - 12/28/21 0659 Shift 6541-7793 3904-7988 2915-1034 24 Hour Total 5379-0960 7334-5259 8667-6569 24 Hour Total INTAKE PO 60 60 PO 60 60 IV 2100 2100 Volume (mL) (lactated ringers iv infusion) 2100 2100 Shift Total 2160 2160 OUTPUT Urine 9123 405 2461 2300 200 200 Void (ml) 300 1000 1300 200 200 Output ( Indwelling Urinary Catheter 12/24/21 Call 16 Fr) 1000 1000 Emesis 0 0 Emesis (ml) 0 0 Ostomy 250 125 375 Ileostomy 1 250 125 375 # of BMs Number of BMs 0 x 0 x Shift Total 4022 414 3277 2675 200 200 Weight (kg) 82.1 82.1 82.1 82.1 82.1 82.1 82.1 82.1 Recent Labs 12/26/21 0755 12/25/21 0606 WBC -- 5.96 HB -- 11.6 HCT -- 35.2* PLT -- 271 NA 139 141 K 4.0 4.0 CHLOR 102 104 CO2 28 28 CREAT 0.62* 0.72 BUN 10 12 GLUC 71 91 CA 8.5 8.5 Parish Celeste DO General Surgery, PGY-4 [phone] After 6 pm and on the weekends please page [phone] 12-26-2021 NoteHNO ID: [id number] Author: Jenifer Ayala MD Service: Colorectal Author Type: Fellow Type: Progress Notes Filed: 12/26/2021 12:13 PM Note Text: GENERAL SURGERY PROGRESS NOTE Name: Mary Leal 12/26/2021 12:11 PM Interval Events: Patient doing well post-operatively. No acute events overnight. Tolerating CLD diet without nausea or vomiting. Stoma productive of bilious fluid + gas Pain well controlled with QUALITY ASSURANCE ASSOCIATE + oral pain medication (feels most relief from po oxycodone). Assessment and Plan: 51 year old female with pelvic organ prolapse and chronic constipation, likely slow transit but with possible component of pelvic outlet obstruction and with discordant testing. Patient underwent laparoscopic protopexy on 12/24/21 surgery was uneventful. Post-operative course has been uncompliacted. Pain control- Tylenol Gabapentin Toradol QUALITY ASSURANCE ASSOCIATE: Dilaudid, tegretol, klonopin, requip, trintellix, oxycodone Cardiac- [...] any questions or concerns page FV Blue [id number] Objective Physical exam: BP 117/66 Pulse 77 [...] 0659 12/26/21 07 - 12/27/21 0659 Shift 9955-3665 8979-3446 8285-5275 24 Hour Total 5793-4492 1710-4041 1748-5954 24 Hour Total INTAKE PO 60 60 PO 60 60 IV 213 668 881 Volume (mL) (lactated ringers iv infusion) 213 668 881 Shift Total 273 668 941 OUTPUT Urine 881 713 8018 1000 Void (ml) 0 0 Output ( Indwelling Urinary Catheter 12/24/21 Call 16 Fr) 141 278 4192 1000 Emesis 0 0 Emesis (ml) 0 0 Ostomy 100 100 Ileostomy 1 100 100 # of BMs Number of BMs 0 x 0 x Shift Total 106 489 6892 1000 Weight (kg) 82.1 82.1 82.1 82.1 [...] Diagnosis Date Noted - Pelvic floor dysfunction 12/24/2021[facility] HospitalOxncicvp03-33-1606 NoteHNO ID: [id number] Author: Sonido Owen MD Service: Colorectal Author [...] been uncompliacted. Pain control- Tylenol Gabapentin Toradol QUALITY ASSURANCE ASSOCIATE: Dilaudid, tegretol, klonopin, requip, trintellix Cardiac- Vitals: [...] Owen MD General Surgery PGY 2 Pg [phone] For any questions or concerns page [facility]V Blue [id number] Objective Physical exam: BP 111/61 Pulse 86 [...] 0659 12/25/21 0700 - 12/26/21 0659 Shift 2012-1592 1402-8399 3014-4421 24 Hour Total 5083-1654 7081-1899 1154-8800 24 Hour Total INTAKE PO 240 120 360 PO 240 120 360 IV 3100 3100 Volume (mL) (lactated ringers iv infusion) 1800 1800 Volume (mL) (lactated ringers iv infusion) 1300 1300 Shift Total 3100 851 433 1892 OUTPUT Urine 200 319 991 6903 OR Urine Output 200 200 Output ( Indwelling Urinary Catheter 12/24/21 Call 16 Fr) 300 500 800 Emesis 0 0 0 Emesis (ml) 0 0 0 Ostomy 0 0 0 Ileostomy 1 0 0 0 # of BMs Number of BMs 0 x 0 x 0 x Blood 50 50 Estimated Blood loss 50 50 Shift Total 250 370 841 3371 Weight (kg) 82.1 82.1 82.1 82.1 82.1 [...] Diagnosis Date Noted - Pelvic floor dysfunction 12/24/2021[facility] HospitalPikouldu39-90-8234 NoteHNO ID: [id number] Author: Carmen Stanley APRN.CRNA Service: Anesthesiology Author Type: Nurse Can Sealer Type: Anesthesia Procedure Notes Filed: 12/24/2021 8:44 [...] December 24, 2021 TIME: 8:44 AM CSN: [id number] NoteHNO ID: [id number] Author: Carmen Stanley APRN.CRNA Service: Anesthesiology Author Type: Nurse Can Sealer Type: Anesthesia Procedure Notes Filed: 12/24/2021 8:44 AM Note Text: ANESTHESIOLOGY PROCEDURE NOTE Airway General Information Procedure Start Time/Medication Administration: 12/24/2021 8:22 AM Patient location during procedure: OR 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, care donor services team leader and patient Staffing Anesthesiologist: Chayito Ojeda MD LEATHER STAKER: Carmen Stanley APRN.LEATHER STAKER Performed by: LEATHER STAKER and anesthesiologist Indications and Patient Condition Preoxygenated: [...] 1 Airway not difficult SIGNATURE: Carmen Stanley APRN.LEATHER STAKER PATIENT NAME: Mary Leal DATE: December 24, 2021 TIME: 8:43 AM CSN: [id number] Evaluation note* Encounter Date Diagnosis Assessment Notes [...] writ ten by Lupillo Amezquita MA, Clinical Data Abstractor. Edited and approved by Dr. Beto Snyder MD. ASSUR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 Other 11-01-2021 Evaluation note* Encounter Date Diagnosis [...] writ ten by Lupillo Amezquita MA, Clinical Data Abstractor. Edited and approved by Dr. Beto Snyder MD. ASSUR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 Other 10-14-2021 Evaluation note* Encounter Date Diagnosis [...] no improvement in 2 to 3 days. ASSUR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 Other 10-08-2021 Evaluation note* Encounter Date Diagnosis [...] Patient care instructions given in writting by [facility] Care At Home document ASSUR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 Other 10-07-2021 Evaluation note* Encounter Date Diagnosis [...] Aug, Other chronic pain (ICD-10 - G89.29) ASSUR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 Other 09-22-2021 Evaluation note* Encounter Date Diagnosis [...] Jul, Other chronic pain (ICD-10 - G89.29) ASSUR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 Other 03-01-2021 Note [id number]:[address] [place] [address] 01-04-2021 NoteCystoscopy with Botox injection ? Voiding [...] if you have a fever over 100 degrees.[facility] 11-11-2020 NoteChief Complaint Pt is here [...] BENSON, Dawna Feldman [address] [place] [address]- [phone] Additional Instructions: F/u in 1yr. Patient Education [...] deficit disorder Bipolar disorder (more content not included)...[facility] Comment on above:Result Comment: Electronically Signed By: Francie BENSON, Dawna Feldman\.br\Date and Time Signed: 11/11/2111:16 EST\.br\Electronically Co-Signed By: Christy Gill MA\.br\Date and Time Co-Signed: 11/11/20 12:07 [id number]:127[facility] HospitalChief complaint Narrative - Reported* MARY LEAL is being seen for an initial evaluation of. * 52-year-old female seen in cardiology consultation at the request of her primary care physician forelevated troponin while in [facility] this past spring that was associated with a GI bleed/gastritis. * Patient recently underwent large bowel resection details of which are unknown and I suspect possibly consistent with ulcerative colitis but again unknown pathology. She had a diverting colostomy with3 anastomosis performed. While in [place] with her GI bleed and primarily gastric [...] * I believe minor troponin elevation in [place] was simply at small type II non- LA troponin elevationrelated to inflammation and gastritis and [...] colectomy. She can follow-up as needed otherwise. [facility] [address] DO Work Phone: Evaluation note* Diagnosis Pelvic floor dysfunction- Primary Pelvic muscle wasting Lack of coordination Follow-up examination after colorectal surgery Follow-up examination, following other surgery documented in this encounter [facility]* Diagnosis Gastroesophageal reflux disease, unspecified whether esophagitis present documented in this encounter [facility]* Diagnosis Follow-up examination after colorectal surgery- Primary Follow-up examination, following other surgery documented in this encounter [facility]* Diagnosis Post-operative state- Primary Other postprocedural status Yeast infection of the skin Candidiasis of skin and nails documented in this encounter [facility]* Diagnosis Pelvic floor dysfunction- Primary Pelvic muscle wasting Lack of coordination Follow-up examination after colorectal surgery Follow-up examination, following other surgery documented in this encounter [facility]* Diagnosis Postoperative state- Primary Other postprocedural status Attention to ileostomy ([facility]) Attention to ileostomy documented in this encounter [facility]* Diagnosis Preop examination- Primary Preoperative examination, [...] ileostomy documented in this encounter [facility]* Diagnosis Gastroesophageal reflux disease, unspecified whether esophagitis present Chronic idiopathic constipation Unspecified constipation Attention to ileostomy (HCC) Attention to ileostomy documented in this encounter [facility] note* Diagnosis Follow-up examination after colorectal surgery- Primary Follow-up examination, following other surgery Pelvic floor dysfunction Pelvic muscle wasting documented in this encounter [facility] noteNo InformationNort [employer] Other Evaluation noteNomeXBT / [employer] Other Evaluation note* Diagnosis Follow-up examination after colorectal surgery- Primary Follow-up examination, following other surgery Periumbilical abdominal pain Abdominal pain, periumbilic Outlet dysfunction constipation Colonic inertia Other functional disorders of intestine documented in this encounter [facility] noteNo assessment information availableSt. [facility] Work Phone: Evaluation note* Diagnosis Gas bloat syndrome- Primary Chronic idiopathic constipation Unspecified constipation Gastroparesis documented in this encounter [facility] note* Diagnosis Gastroesophageal reflux disease, unspecified whether esophagitis present documented in this encounter [facility] note* Diagnosis Gastroparesis- Primary documented in this encounter [facility] note* Diagnosis CHUCKIE (obstructive sleep apnea)- Primary Obstructive sleep apnea (adult) (pediatric) documented in this encounter [facility] note* Diagnosis Pre-op exam- Primary Preoperative examination, unspecified Primary hypertension Unspecified essential hypertension Mild persistent asthma without complication Unspecified asthma Gastroparesis CHUCKIE (obstructive sleep apnea) Obstructive sleep apnea (adult) (pediatric) documented in this encounter [facility] note* Diagnosis CHUCKIE (obstructive sleep apnea)- Primary Obstructive sleep apnea (adult) (pediatric) documented in this encounter [facility] note* Diagnosis Chronic idiopathic constipation- Primary Unspecified constipation Nausea Nausea alone documented in this encounter [facility] note* Diagnosis Gastroesophageal reflux disease with esophagitis without hemorrhage- Primary documented in this encounter [facility] note* Diagnosis Colonic inertia- Primary Other functional disorders of intestine Pelvic floor dysfunction Pelvic muscle wasting Nausea Nausea alone Gastroparesis documented in this encounter [facility] note* Diagnosis Pylorospasm- Primary Functional dyspepsia Dyspepsia and other specified disorders of function of stomach Gastroesophageal reflux disease with esophagitis without hemorrhage documented in this encounter [facility] note* Diagnosis Gastroesophageal reflux disease, unspecified whether esophagitis present documented in this encounter [facility] note* Diagnosis CHUCKIE (obstructive sleep apnea)- Primary Obstructive sleep apnea (adult) (pediatric) documented [facility]* Diagnosis Pylorospasm- Primary Functional dyspepsia Dyspepsia and other specified disorders of function of stomach Gastroesophageal reflux disease with esophagitis without hemorrhage documented in this encounter [facility] note* Diagnosis Gastroparesis- Primary documented in this encounter [facility] note* Diagnosis Preop examination- Primary Preoperative examination, unspecified Nausea Nausea alone CHUCKIE (obstructive sleep apnea) Obstructive sleep apnea (adult) (pediatric) Mild persistent asthma without complication Unspecified asthma Gastroesophageal reflux disease, unspecified whether esophagitis present Gastroparesis documented in this encounter [facility] note* Diagnosis 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 Personal history of other diseases of digestive system documented [facility] this encounter [facility]* Diagnosis Gastroesophageal reflux disease, unspecified whether esophagitis present documented [facility]* Diagnosis Incomplete bladder emptying- Primary Constipation, unspecified constipation type Urinary urgency Urgency of urination Urinary frequency Nocturia documented in this encounter [facility] note* Diagnosis Upper abdominal pain- Primary Abdominal pain, other specified site documented [facility]* Diagnosis Burning with urination- Primary Dysuria documented [facility] this encounter [facility]* Diagnosis Bety vaginitis Candidiasis of vulva and vagina documented in this encounter [facility] note* Diagnosis Pre-op examination- Primary Preoperative [...] urge Urge incontinence documented in this encounter [facility] note* Diagnosis Educational circumstances- Primary Educational circumstance Urinary urgency Urgency of urination Urinary frequency OAB (overactive bladder) Hypertonicity of bladder Urinary incontinence, urge Urge incontinence documented in this encounter [facility] note* Diagnosis Post-operative state- Primary Other postprocedural status documented [facility]* Diagnosis Procedure and treatment not carried out for other reasons- Primary [facility] Diagnosis Post-operative state- Primary Other postprocedural status Vaginal burning Other specified symptom associated with female genital organs documented in this encounter [facility]* Diagnosis Vaginal burning- Primary Other specified symptom associated with female genital organs documented [facility] this encounter [facility]* Diagnosis Taylor grade D esophagitis Early satiety Unintentional weight loss Loss of weight Gastroparesis [facility] Diagnosis Gas bloat syndrome documented in this encounter [facility]* Diagnosis Pain Generalized pain Pre-op evaluation- [...] apnea (adult) (pediatric) documented [facility] this encounter [facility]* Diagnosis Pre-op evaluation- Primary Preoperative examination, [...] (pediatric) documented [facility] this encounter [facility]* Diagnosis Chronic abdominal pain- Primary Abdominal pain, unspecified site Avoidant-restrictive food intake disorder (ARFID) Bloating Flatulence, eructation, and gas pain Gastroparesis documented [facility] [facility]* Diagnosis Anxiety- Primary Anxiety state, unspecified [facility] Diagnosis Urinary frequency Urinary urgency [...] Granulation tissue [facility]* Diagnosis PCB (post coital bleeding) Postcoital bleeding Granulation tissue Hymen abnormality [facility]* Diagnosis Peroneal tendinitis of right lower extremity- Primary Bilateral foot pain Exostosis of bone of foot [facility] Diagnosis Soft tissue mass- Primary Disorders of soft tissue, unspecified Gastro-esophageal reflux disease without esophagitis Gastroparesis Mild intermittent asthma, unspecified whether complicated (CMS/HCC) [facility]* Diagnosis Oral candidiasis- Primary Candidiasis of mouth Tongue pain Glossodynia [facility] Diagnosis Chronic diarrhea- Primary Diarrhea Chronic abdominal pain Abdominal pain, unspecified site Bloating Flatulence, eructation, and gas pain Inadequate oral intake Other symptoms concerning nutrition, metabolism, and development Taylor grade D esophagitis Gastroparesis [facility] Diagnosis Aftercare following surgery Encounter for other specified aftercare Aftercare following surgery Encounter for other specified aftercare [facility] Diagnosis Aftercare following surgery Encounter for other specified aftercare [facility]* Diagnosis Seborrheic keratosis Lentigines Capillary angioma Nevus, non-neoplastic [facility]* Diagnosis Restless legs syndrome Restless legs syndrome (RLS) documented in this encounter [facility]* Diagnosis Other migraine without status migrainosus, not intractable [facility] Diagnosis CHUCKIE (obstructive sleep apnea)- Primary Obstructive sleep apnea (adult) (pediatric) Pre-op testing- Primary Unspecified pre-operative examination CHUCKIE (obstructive sleep apnea) Obstructive sleep apnea (adult) (pediatric) [facility] Diagnosis Other migraine without status migrainosus, not intractable- Primary [facility] Diagnosis CHUCKIE (obstructive sleep apnea)- Primary Obstructive sleep apnea (adult) (pediatric) [facility] Diagnosis Other migraine without status migrainosus, not intractable [facility] Diagnosis Onset Date Resolution Status Admit Date Lumbar radiculopathy acute April 30, 2025 3:53pm Polyneuropathy acute April 30, 2025 3:53pm [facility] Work Phone: Evaluation note* Diagnosis Gastroparesis- Primary Esophageal dysphagia Dysphagia, pharyngoesophageal phase Gastroesophageal reflux disease with esophagitis without hemorrhage Diarrhea, unspecified type Flatulence Flatulence, eructation, and gas pain documented [facility] Diagnosis Mild persistent asthma with acute exacerbation (HCC)- Primary documented in this encounter [facility]* Diagnosis Encounter for gynecological examination without abnormal finding Encounter for Papanicolaou smear of vagina Breast cancer screening by mammogram Hormone replacement therapy Chronic vulvitis Unspecified vaginitis and vulvovaginitis Night sweats Generalized hyperhidrosis Dyspareunia in female Erythema Unspecified erythematous condition documented in this encounter [facility] HealthcareHistory general Narrative - Reported* Type Description [...] see above list Hospitalization History respiratory 02/2020 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 Other Hisrugr general Narrative - ReportedNort [employer] Other history general Narrative - Reported* Type [...] see above list Hospitalization History respiratory 02/2020 [employer]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 Other Hospital Discharge instructionsAmbulatory Orders* Referral to Rheumatology Location: None Selected [facility] Work Phone: InstructionsNot on filedocumented [...] Gastroparesis Procedures CAPSULE ENDOSCOPY Isra Kitchen DO [facility] [address] [place] [address] [facility] [address] [place] [id number] Referral ID Status Reason Start Date Expiration Date Visits Requested Visits Authorized [id number] Pending Review Auto-Generat ed Referral 10/11/2022 10/11/2023 1 1 [facility] Outpatient Procedure (Routine) - Pending Review Specialty Diagnoses / Procedures Referred By Gustavo t Referred To Contact [facility] Diagnoses Chronic idiopathic constipation Procedures SIGMOIDOSCOPY SIGMOIDOSCOPY FLX DX W/COLLJ SPEC BR/WA IF PFRMD Isra Masters DO [facility] [address] [place] [address] [facility] [address] [place] [address] Referral ID Status Reason Start Date Expiration Date Visits Requested Visits Authorized [id number] Pending Review Auto-Generat ed Referral 11/30/2022 11/30/2023 [address] [facility] Outpatient Procedure (Routine) - Pending Review Specialty Diagnoses / Procedures Referred By Gustavo t Referred To Contact [facility] Diagnoses Gastroparesis Procedures EGD - THERAPEUTIC, EUS, OR TUBE INTERVENTIONS ESOPHAGOGASTRODUODENOSC OPY TRANSORAL DIAGNOSTIC STOMACH SURGERY PROCEDURE UNLISTED [place] [address] [facility] [address] [place] [address] Referral ID Status Reason Start Date Expiration Date Visits Requested Visits Authorized [id number] Pending Review Auto-Generat ed Referral 01/11/2023 01/12/2024 1 1 [facility] Outpatient Procedure (Routine) - Pending Review Specialty Diagnoses / Procedures Referred By Gustavo t Referred To Contact [facility] Diagnoses Incomplete bladder emptying Urinary urgency Urinary frequency Nocturia Procedures URODYNAMICS WHI COMPLX CYSTOMETRO W/VOID PRESS&URETHRAL PROFILE Nelsy Chávez, DANN.CHEMISTRY DEPARTMENT CHAIR [address] [place] [address] [facility] [address] [place] [address] Referral ID Status Reason Start Date Expiration Date Visits Requested Visits Authorized [id number] Pending Review Auto-Generat ed Referral 07/31/2023 07/30/2024 1 1 [facility] for referral (narrative)* Consultation (Routine) - Open Specialty Diagnoses / Procedures Referred By Contac t Referred To Contact Family Medicine Diagnoses Upper abdominal pain Lev Ritter APRN CHEMISTRY DEPARTMENT CHAIR [address] [place] [address] [facility] [address] [facility] [place] [address] Referral ID Status Reason Start Date Expiration Date Visits Re quested Visits Authorized [id number] Open 08/12/2023 09/12/2024 1 1 [facility] for referral (narrative)* Consultation (Routine) - New Request Specialty Diagnoses / Procedures Referred By Contac t Referred To Contact Psychology Diagnoses Avoidant-restrictive food intake disorder (ARFID) Chronic abdominal pain Padmaja Llamas MD, PhD [address] [place] [phone] Referral ID Status Reason Start Date Expiration Date V isits Requested Visits Authorized [id number] New Request 08/09/2024 09/03/2025 1 1 * Adjunctive Therapy (Routine) - New Request Specialty Diagnoses / Procedures Referred By Contac t Referred To Contact Nutrition and Dietetics Diagnoses Chronic abdominal pain Bloating Gastroparesis Padmaja Llamas MD, PhD [address] [place] [address] [address] [place] [address] Referral ID Status Reason Start Date Expiration Date V isits Requested Visits Authorized [id number] New Request 08/09/2024 09/03/2025 1 1 * Radiology (Routine) - New Request Specialty Diagnoses / Procedures Referred By Gustavo salazar Referred To Contact Diagnoses Chronic abdominal pain Bloating Procedures HYDROGEN (H2) BREATH TEST Padmaja Llamas MD, PhD [address] [facility] [address] [place] [address] Referral ID Status Reason Start Date Expiration Date V isits Requested Visits Authorized [id number] New Request 08/09/2024 09/03/2025 1 1 [facility] (n[facility]ative)No reason for referral [facility] Work Phone: Reason for visit NarrativeDISCUSS OTHER OPTIONS PRIOR TO PROCEDUREFrederic [employer] Other Reason for visit NarrativeRECHECK CERVICAL PAIN DISCUSS PROCEDURENob[facility]well [facility] Other Rezjzq for visit Narrative* Outpatient Procedure (Routine) - Closed Specialty Diagnoses / Procedures Referred By Gustavo salazar Referred To Contact [facility] Diagnoses Gastroparesis Procedures GI TRANSIT & PRES RAVINDER WIRELESS CAPSULE W/JEMALP Isra Masters DO [facility] [address] [place] [address] [facility] [address] [place] [address] Referral ID Status Reason Start Date Expiration Date Visits Re quested Visits Authorized [id number] Closed 11/08/2022 11/05/2023 1 1 [facility] Summary Purpose Family History Unknown Family Member Name Dates Details Adopted: Father(V68.89, Z02. 82) Status:Active Family history of cardiac pa cemaker: Father(V17.49, Z82.49) Status:Active Unknown Family Member Name Dates Details Adopted: Father(V68.89, Z02. 82) Status:Active Family history of cardiac pa cemaker: Father(V17.49, Z82.49) Status:Active Unknown Family Member Name Dates Details Adopted: Father(V68.89, Z02. 82) Status:Active Family history of cardiac pa brianaker: Father(V17.49, Z82.49) Status:Active Relationship Condition Age at Onset Recorded Date/T faina father Hypertension Unknown mother Hypertension Unknown son Family history of mental disorder Unknown Advance Directives Documents on File Type Date Recorded Patient Manager Core Expl anation Advance Directive(s) 10/13/2021 4:09 PM Advance Directive(s) 10/14/2020 8:14 AM Documents on File Type Date Recorded Patient Manager Core Expl anation Advance Directive(s) 10/13/2021 4:09 PM Advance Directive(s) 10/14/2020 8:14 AM Documents on File Type Date Recorded Patient Manager Core Expl anation Advance Directive(s) 03/21/2022 1:42 PM [...] unspecified whether esophagitis present Isra Masters DO [facility] [address] [place] [address] Referral ID Status Reason Start Date Expiration Date Visits Re quested Visits Authorized [id number] Closed 1 1 Referral ID Status Reason Start Date Expiration Date V isits Requested Visits Authorized [id number] Pending Review 1 1 Specialty Diagnoses / Procedures Referred By Contac t Referred To Contact CT IMAGING Diagnoses Periumbilical abdominal pain Procedures CT ABD/PEL W IVCON CT ABD & PELVIS W/[place] [address] [place] [address] Ct Imaging Referral ID Status Reason Start Date Expiration Date Visits Requested Visits Authorized [id number] Pending Review Auto-Generat ed Referral 08/02/2022 08/25/2023 1 1 Reason BILATERAL SHOULDER P AIN Diagnosis 1 Shoulder pain (M25.5 19) Referral Organization [facility] Referring Provider First Name Beto Referring Provider Last Name Felter Referring Provider Specialty Pain Medici ne Referred Organization [facility] Referred Provider Beto Cartagena Referred Address [address] [place], [place],[address] Referred Provider Specialty Orthopedic S urgery Referral Priority Routine Referral Appointment Date 2022-10-10 General Notes Kim Manley 10:01:46 AM >patient already scheduled with [facility] 10/10/22 at 1:30pm. Sending p2p at this time Referral ID Status Reason Start Date Expiration Date Visits Re quested Visits Authorized [id number] Closed 1 1 Specialty Diagnoses / Procedures Referred By Gustavo t Referred To Contact Diagnoses Taylor grade D esophagitis Early satiety Unintentional weight loss Gastroparesis Procedures DIAGNOSTIC UPPER ENDOSCOPY IA ESOPHAGOGASTRODUODENOSCOPY TRANSORAL DIAGNOSTIC Padmaja Llamas MD, PhD [address] [place] [address] Referral ID Status Reason Start Date Expiration Date V isits Requested Visits Authorized [id number] New Request 03/06/2024 03/31/2025 1 1 Specialty Diagnoses / Procedures Referred By Gustavo t Referred To Contact Diagnoses Other migraine without status migrainosus, not intractable Pauline Christensen MD [address] [facility] [place] [address] Referral ID Status Reason Start Date Expiration Date V isits Requested Visits Authorized [id number] Pending Review 05/15/2024 05/15/2025 1 1 Referral ID Status Reason Start Date Expiration Date V isits Requested Visits Authorized [id number] Pending Review 05/15/2024 05/15/2025 1 1 Chief Complaint and Reason for Visit Chief Complaint M25.519 M25.569 R52 Chief Complaint M25.519 M25.569 R52 bilateral shoulder pain Chief Complaint M76.821/right foor p ain Chief Complaint M76.821/right foor p ain chest tightness dizzy sob Chief Complaint r11.0 r10.11 Chief Complaint M76.71 Chief Complaint M76.71 Unknown Chief Complaint Admit Date cervical spondylosis, radiculopathy [facility] 2023 2:53pm Chief Complaint Admit Date cervical spondylosis, radiculopathy [facility] 2023 2:53pm M54.12 October 09, 2024 [...] Chief Complaint Admit Date cervical spondylosis, radiculopathy [facility] 2023 2:53pm M54.12 October 09, 2024 8 :55am m47.816 October 10, 2024 8 :42am M54.16 October 10, 2024 8 :44am EMG/MRI results October 14, 2024 8 :25am Granulation Tissue, Post Coital Bleeding , Hymenal October 24, 2024 5:57am R14.0 K31.84 November 14, 2024 6: 37am f/u after PM November 20, 2024 1 :13pm Chief Complaint Admit Date cervical spondylosis, radiculopathy [facility] 2023 2:53pm M54.12 October 09, 2024 [...] weakness, dizziness, diaphoresis with recent work-up that [facility] emergency room. Reportedly her troponins are [...] of which are currently being investigated at [facility] (now her fourth GI specialist). * Last year while in [place] she had similar issues with elevated troponins in the ED and underwent heart catheterization that did not reveal any specific significant disease, details of the discharge summary are reviewed * She underwent recent stress perfusion imaging at [facility], the report is reviewed, she hasno evidence [...] disease, will investigate the troponin rise at [facility] however I believe this is likely a non- LA troponin elevation, likely associated withunderlying inflammatory bowel disease. We will follow-up on a as needed basis unless further objective data come to light * Patient is a 53-year-old female who returns at the request of her primary care physician with episodic chest discomfort associated weakness, dizziness, diaphoresis with recent work-up that [facility] emergency room. Reportedly her troponins are [...] of which are currently being investigated at [facility] (now her fourth GI specialist). * Last year while in [place] she had similar issues with elevated troponins in the ED and underwent heart catheterization that did not reveal any specific significant disease, details of the discharge summary are reviewed * She underwent recent stress perfusion imaging at [facility], the report is reviewed, she hasno evidence [...] disease, will investigate the troponin rise at [facility] however I believe this is likely a non- LA troponin elevation, likely associated withunderlying inflammatory bowel disease. We will follow-up on a as needed basis unless further objective data come to light Additional Source Comments INFORMATION SOURCE (unrecogn ized section and content) DATE CREATED AUTHOR 07/08/2021 [facility] DATE CREATED AUTHOR AUTHOR'S ORGANIZ ATION 11/18/2021 [facility] DATE CREATED AUTHOR AUTHOR'S ORGANIZ ATION 02/01/2022 [facility] DATE CREATED AUTHOR AUTHOR'S ORGANIZ ATION 04/05/2022 [facility] DATE CREATED AUTHOR AUTHOR'S ORGANIZ ATION 09/29/2022 [facility] dical Specialist DATE CREATED AUTHOR AUTHOR'S ORGANIZ ATION 12/09/2022 [facility] DATE CREATED AUTHOR AUTHOR'S ORGANIZ ATION 04/16/2023 [facility] DATE CREATED AUTHOR AUTHOR'S ORGANIZ ATION 06/14/2023 [employer] DATE CREATED AUTHOR AUTHOR'S ORGANIZ ATION 08/14/2023 [facility] DATE CREATED AUTHOR AUTHOR'S ORGANIZ ATION 09/02/2023 [facility] DATE CREATED AUTHOR AUTHOR'S ORGANIZ ATION 10/27/2023 [facility] DATE CREATED AUTHOR AUTHOR'S ORGANIZ ATION 01/26/2024 [facility] DATE CREATED AUTHOR AUTHOR'S ORGANIZ ATION 03/16/2024 [facility] DATE CREATED AUTHOR AUTHOR'S ORGANIZ ATION 12/28/2024 [facility] DATE CREATED AUTHOR AUTHOR'S ORGANIZ ATION 12/30/2024 [facility] DATE CREATED AUTHOR AUTHOR'S ORGANIZ ATION 01/26/2025 [facility] DATE CREATED AUTHOR AUTHOR'S ORGANIZ ATION 03/01/2025 [facility] DATE CREATED AUTHOR AUTHOR'S ORGANIZ ATION 05/17/2025 [facility] DATE CREATED AUTHOR AUTHOR'S ORGANIZ ATION 06/07/2025 [facility] DATE CREATED AUTHOR AUTHOR'S ORGANIZ ATION 06/08/2025 [facility] DATE CREATED AUTHOR AUTHOR'S ORGANIZ ATION 06/09/2025 [facility] dicsd Specialists EPIC Source Comments (unrecognize d section and content) In the event this informatio n is protected by the Federal Confidentiality of Alcohol and Drug Abuse Patient Records regulations: The Federal rules restrict any use of the information to criminally investigate or prosecute any alcohol or drug abuse patient.[facility] System[facility] the event this information is protected by the Federal Confidentiality of Alcohol and Drug Abuse Patient Records regulations: The Federal rules restrict any use of the information to criminally investigate or prosecute any alcohol or drug abuse patient.[facility] SystemIn the event this information is protected by the Federal Confidentiality of Alcohol and Drug Abuse Patient Records regulations: The Federal rules restrict any use of the information to criminally investigate or prosecute any alcohol or drug abuse patient.[facility] SystemIn the event this information is protected by the Federal Confidentiality of Alcohol and Drug Abuse Patient Records regulations: The Federal rules restrict any use of the information to criminally investigate or prosecute any alcohol or drug abuse patient.[facility] SystemIn the event this information is protected by the Federal Confidentiality of Alcohol and Drug Abuse Patient Records regulations: The Federal rules restrict any use of the information to criminally investigate or prosecute any alcohol or drug abuse patient.[facility] SystemIn the event this information is protected by the Federal Confidentiality of Alcohol and Drug Abuse Patient Records regulations: The Federal rules restrict any use of the information to criminally investigate or prosecute any alcohol or drug abuse patient.[facility] SystemIn the event this information is protected by the Federal Confidentiality of Alcohol and Drug Abuse Patient Records regulations: The Federal rules restrict any use of the information to criminally investigate or prosecute any alcohol or drug abuse patient.[facility] SystemIn the event this information is protected by the Federal Confidentiality of Alcohol and Drug Abuse Patient Records regulations: The Federal rules restrict any use of the information to criminally investigate or prosecute any alcohol or drug abuse patient.[facility] SystemIn the event this information is protected by the Federal Confidentiality of Alcohol and Drug Abuse Patient Records regulations: The Federal rules restrict any use of the information to criminally investigate or prosecute any alcohol or drug abuse patient.[facility] SystemIn the event this information is protected by the Federal Confidentiality of Alcohol and Drug Abuse Patient Records regulations: The Federal rules restrict any use of the information to criminally investigate or prosecute any alcohol or drug abuse patient.[facility] SystemIn the event this information is protected by the Federal Confidentiality of Alcohol and Drug Abuse Patient Records regulations: The Federal rules restrict any use of the information to criminally investigate or prosecute any alcohol or drug abuse patient.[facility] SystemIn the event this information is protected by the Federal Confidentiality of Alcohol and Drug Abuse Patient Records regulations: The Federal rules restrict any use of the information to criminally investigate or prosecute any alcohol or drug abuse patient.[facility] SystemIn the event this information is protected by the Federal Confidentiality of Alcohol and Drug Abuse Patient Records regulations: The Federal rules restrict any use of the information to criminally investigate or prosecute any alcohol or drug abuse patient.[facility] SystemIn the event this information is protected by the Federal Confidentiality of Alcohol and Drug Abuse Patient Records regulations: The Federal rules restrict any use of the information to criminally investigate or prosecute any alcohol or drug abuse patient.[facility] SystemIn the event this information is protected by the Federal Confidentiality of Alcohol and Drug Abuse Patient Records regulations: The Federal rules restrict any use of the information to criminally investigate or prosecute any alcohol or drug abuse patient.[facility] SystemIn the event this information is protected by the Federal Confidentiality of Alcohol and Drug Abuse Patient Records regulations: The Federal rules restrict any use of the information to criminally investigate or prosecute any alcohol or drug abuse patient.[facility] SystemIn the event this information is protected by the Federal Confidentiality of Alcohol and Drug Abuse Patient Records regulations: The Federal rules restrict any use of the information to criminally investigate or prosecute any alcohol or drug abuse patient.[facility] SystemIn the event this information is protected by the Federal Confidentiality of Alcohol and Drug Abuse Patient Records regulations: The Federal rules restrict any use of the information to criminally investigate or prosecute any alcohol or drug abuse patient.[facility] SystemIn the event this information is protected by the Federal Confidentiality of Alcohol and Drug Abuse Patient Records regulations: The Federal rules restrict any use of the information to criminally investigate or prosecute any alcohol or drug abuse patient.[facility] SystemIn the event this information is protected by the Federal Confidentiality of Alcohol and Drug Abuse Patient Records regulations: The Federal rules restrict any use of the information to criminally investigate or prosecute any alcohol or drug abuse patient.[facility] SystemIn the event this information is protected by the Federal Confidentiality of Alcohol and Drug Abuse Patient Records regulations: The Federal rules restrict any use of the information to criminally investigate or prosecute any alcohol or drug abuse patient.[facility] SystemIn the event this information is protected by the Federal Confidentiality of Alcohol and Drug Abuse Patient Records regulations: The Federal rules restrict any use of the information to criminally investigate or prosecute any alcohol or drug abuse patient.[facility] SystemIn the event this information is protected by the Federal Confidentiality of Alcohol and Drug Abuse Patient Records regulations: The Federal rules restrict any use of the information to criminally investigate or prosecute any alcohol or drug abuse patient.[facility] SystemIn the event this information is protected by the Federal Confidentiality of Alcohol and Drug Abuse Patient Records regulations: The Federal rules restrict any use of the information to criminally investigate or prosecute any alcohol or drug abuse patient.[facility] SystemIn the event this information is protected by the Federal Confidentiality of Alcohol and Drug Abuse Patient Records regulations: The Federal rules restrict any use of the information to criminally investigate or prosecute any alcohol or drug abuse patient.[facility] SystemIn the event this information is protected by the Federal Confidentiality of Alcohol and Drug Abuse Patient Records regulations: The Federal rules restrict any use of the information to criminally investigate or prosecute any alcohol or drug abuse patient.[facility] SystemIn the event this information is protected by the Federal Confidentiality of Alcohol and Drug Abuse Patient Records regulations: The Federal rules restrict any use of the information to criminally investigate or prosecute any alcohol or drug abuse patient.[facility] SystemIn the event this information is protected by the Federal Confidentiality of Alcohol and Drug Abuse Patient Records regulations: The Federal rules restrict any use of the information to criminally investigate or prosecute any alcohol or drug abuse patient.[facility] SystemIn the event this information is protected by the Federal Confidentiality of Alcohol and Drug Abuse Patient Records regulations: The Federal rules restrict any use of the information to criminally investigate or prosecute any alcohol or drug abuse patient.[facility] SystemIn the event this information is protected by the Federal Confidentiality of Alcohol and Drug Abuse Patient Records regulations: The Federal rules restrict any use of the information to criminally investigate or prosecute any alcohol or drug abuse patient.[facility] SystemIn the event this information is protected by the Federal Confidentiality of Alcohol and Drug Abuse Patient Records regulations: The Federal rules restrict any use of the information to criminally investigate or prosecute any alcohol or drug abuse patient.[facility] SystemIn the event this information is protected by the Federal Confidentiality of Alcohol and Drug Abuse Patient Records regulations: The Federal rules restrict any use of the information to criminally investigate or prosecute any alcohol or drug abuse patient.[facility] SystemIn the event this information is protected by the Federal Confidentiality of Alcohol and Drug Abuse Patient Records regulations: The Federal rules restrict any use of the information to criminally investigate or prosecute any alcohol or drug abuse patient.[facility] SystemIn the event this information is protected by the Federal Confidentiality of Alcohol and Drug Abuse Patient Records regulations: The Federal rules restrict any use of the information to criminally investigate or prosecute any alcohol or drug abuse patient.[facility] SystemIn the event this information is protected by the Federal Confidentiality of Alcohol and Drug Abuse Patient Records regulations: The Federal rules restrict any use of the information to criminally investigate or prosecute any alcohol or drug abuse patient.[facility] SystemIn the event this information is protected by the Federal Confidentiality of Alcohol and Drug Abuse Patient Records regulations: The Federal rules restrict any use of the information to criminally investigate or prosecute any alcohol or drug abuse patient.[facility] SystemIn the event this information is protected by the Federal Confidentiality of Alcohol and Drug Abuse Patient Records regulations: The Federal rules restrict any use of the information to criminally investigate or prosecute any alcohol or drug abuse patient.[facility] SystemIn the event this information is protected by the Federal Confidentiality of Alcohol and Drug Abuse Patient Records regulations: The Federal rules restrict any use of the information to criminally investigate or prosecute any alcohol or drug abuse patient.[facility] SystemIn the event this information is protected by the Federal Confidentiality of Alcohol and Drug Abuse Patient Records regulations: The Federal rules restrict any use of the information to criminally investigate or prosecute any alcohol or drug abuse patient.[facility] SystemIn the event this information is protected by the Federal Confidentiality of Alcohol and Drug Abuse Patient Records regulations: The Federal rules restrict any use of the information to criminally investigate or prosecute any alcohol or drug abuse patient.[facility] SystemIn the event this information is protected by the Federal Confidentiality of Alcohol and Drug Abuse Patient Records regulations: The Federal rules restrict any use of the information to criminally investigate or prosecute any alcohol or drug abuse patient.[facility] SystemIn the event this information is protected by the Federal Confidentiality of Alcohol and Drug Abuse Patient Records regulations: The Federal rules restrict any use of the information to criminally investigate or prosecute any alcohol or drug abuse patient.[facility] SystemIn the event this information is protected by the Federal Confidentiality of Alcohol and Drug Abuse Patient Records regulations: The Federal rules restrict any use of the information to criminally investigate or prosecute any alcohol or drug abuse patient.[facility] SystemIn the event this information is protected by the Federal Confidentiality of Alcohol and Drug Abuse Patient Records regulations: The Federal rules restrict any use of the information to criminally investigate or prosecute any alcohol or drug abuse patient.[facility] SystemIn the event this information is protected by the Federal Confidentiality of Alcohol and Drug Abuse Patient Records regulations: The Federal rules restrict any use of the information to criminally investigate or prosecute any alcohol or drug abuse patient.[facility] SystemIn the event this information is protected by the Federal Confidentiality of Alcohol and Drug Abuse Patient Records regulations: The Federal rules restrict any use of the information to criminally investigate or prosecute any alcohol or drug abuse patient.[facility] SystemIn the event this information is protected by the Federal Confidentiality of Alcohol and Drug Abuse Patient Records regulations: The Federal rules restrict any use of the information to criminally investigate or prosecute any alcohol or drug abuse patient.[facility] SystemIn the event this information is protected by the Federal Confidentiality of Alcohol and Drug Abuse Patient Records regulations: The Federal rules restrict any use of the information to criminally investigate or prosecute any alcohol or drug abuse patient.[facility] SystemIn the event this information is protected by the Federal Confidentiality of Alcohol and Drug Abuse Patient Records regulations: The Federal rules restrict any use of the information to criminally investigate or prosecute any alcohol or drug abuse patient.[facility] SystemIn the event this information is protected by the Federal Confidentiality of Alcohol and Drug Abuse Patient Records regulations: The Federal rules restrict any use of the information to criminally investigate or prosecute any alcohol or drug abuse patient.[facility] SystemIn the event this information is protected by the Federal Confidentiality of Alcohol and Drug Abuse Patient Records regulations: The Federal rules restrict any use of the information to criminally investigate or prosecute any alcohol or drug abuse patient.[facility] SystemIn the event this information is protected by the Federal Confidentiality of Alcohol and Drug Abuse Patient Records regulations: The Federal rules restrict any use of the information to criminally investigate or prosecute any alcohol or drug abuse patient.[facility] SystemIn the event this information is protected by the Federal Confidentiality of Alcohol and Drug Abuse Patient Records regulations: The Federal rules restrict any use of the information to criminally investigate or prosecute any alcohol or drug abuse patient.[facility] SystemIn the event this information is protected by the Federal Confidentiality of Alcohol and Drug Abuse Patient Records regulations: The Federal rules restrict any use of the information to criminally investigate or prosecute any alcohol or drug abuse patient.[facility] SystemIn the event this information is protected by the Federal Confidentiality of Alcohol and Drug Abuse Patient Records regulations: The Federal rules restrict any use of the information to criminally investigate or prosecute any alcohol or drug abuse patient.[facility] SystemIn the event this information is protected by the Federal Confidentiality of Alcohol and Drug Abuse Patient Records regulations: The Federal rules restrict any use of the information to criminally investigate or prosecute any alcohol or drug abuse patient.[facility] SystemIn the event this information is protected by the Federal Confidentiality of Alcohol and Drug Abuse Patient Records regulations: The Federal rules restrict any use of the information to criminally investigate or prosecute any alcohol or drug abuse patient.[facility] SystemIn the event this information is protected by the Federal Confidentiality of Alcohol and Drug Abuse Patient Records regulations: The Federal rules restrict any use of the information to criminally investigate or prosecute any alcohol or drug abuse patient.[facility] SystemIn the event this information is protected by the Federal Confidentiality of Alcohol and Drug Abuse Patient Records regulations: The Federal rules restrict any use of the information to criminally investigate or prosecute any alcohol or drug abuse patient.[facility] SystemIn the event this information is protected by the Federal Confidentiality of Alcohol and Drug Abuse Patient Records regulations: The Federal rules restrict any use of the information to criminally investigate or prosecute any alcohol or drug abuse patient.[facility] SystemIn the event this information is protected by the Federal Confidentiality of Alcohol and Drug Abuse Patient Records regulations: The Federal rules restrict any use of the information to criminally investigate or prosecute any alcohol or drug abuse patient.[facility] SystemIn the event this information is protected by the Federal Confidentiality of Alcohol and Drug Abuse Patient Records regulations: The Federal rules restrict any use of the information to criminally investigate or prosecute any alcohol or drug abuse patient.[facility] SystemIn the event this information is protected by the Federal Confidentiality of Alcohol and Drug Abuse Patient Records regulations: The Federal rules restrict any use of the information to criminally investigate or prosecute any alcohol or drug abuse patient.[facility] SystemIn the event this information is protected by the Federal Confidentiality of Alcohol and Drug Abuse Patient Records regulations: The Federal rules restrict any use of the information to criminally investigate or prosecute any alcohol or drug abuse patient.[facility] SystemIn the event this information is protected by the Federal Confidentiality of Alcohol and Drug Abuse Patient Records regulations: The Federal rules restrict any use of the information to criminally investigate or prosecute any alcohol or drug abuse patient.[facility] SystemIn the event this information is protected by the Federal Confidentiality of Alcohol and Drug Abuse Patient Records regulations: The Federal rules restrict any use of the information to criminally investigate or prosecute any alcohol or drug abuse patient.[facility] SystemIn the event this information is protected by the Federal Confidentiality of Alcohol and Drug Abuse Patient Records regulations: The Federal rules restrict any use of the information to criminally investigate or prosecute any alcohol or drug abuse patient.[facility] SystemIn the event this information is protected by the Federal Confidentiality of Alcohol and Drug Abuse Patient Records regulations: The Federal rules restrict any use of the information to criminally investigate or prosecute any alcohol or drug abuse patient.[facility] SystemIn the event this information is protected by the Federal Confidentiality of Alcohol and Drug Abuse Patient Records regulations: The Federal rules restrict any use of the information to criminally investigate or prosecute any alcohol or drug abuse patient.[facility] SystemIn the event this information is protected by the Federal Confidentiality of Alcohol and Drug Abuse Patient Records regulations: The Federal rules restrict any use of the information to criminally investigate or prosecute any alcohol or drug abuse patient.[facility] SystemIn the event this information is protected by the Federal Confidentiality of Alcohol and Drug Abuse Patient Records regulations: The Federal rules restrict any use of the information to criminally investigate or prosecute any alcohol or drug abuse patient.[facility] SystemIn the event this information is protected by the Federal Confidentiality of Alcohol and Drug Abuse Patient Records regulations: The Federal rules restrict any use of the information to criminally investigate or prosecute any alcohol or drug abuse patient.[facility] SystemIn the event this information is protected by the Federal Confidentiality of Alcohol and Drug Abuse Patient Records regulations: The Federal rules restrict any use of the information to criminally investigate or prosecute any alcohol or drug abuse patient.[facility] SystemIn the event this information is protected by the Federal Confidentiality of Alcohol and Drug Abuse Patient Records regulations: The Federal rules restrict any use of the information to criminally investigate or prosecute any alcohol or drug abuse patient.[facility] SystemIn the event this information is protected by the Federal Confidentiality of Alcohol and Drug Abuse Patient Records regulations: The Federal rules restrict any use of the information to criminally investigate or prosecute any alcohol or drug abuse patient.[facility] SystemIn the event this information is protected by the Federal Confidentiality of Alcohol and Drug Abuse Patient Records regulations: The Federal rules restrict any use of the information to criminally investigate or prosecute any alcohol or drug abuse patient.[facility] SystemIn the event this information is protected by the Federal Confidentiality of Alcohol and Drug Abuse Patient Records regulations: The Federal rules restrict any use of the information to criminally investigate or prosecute any alcohol or drug abuse patient.[facility] SystemIn the event this information is protected by the Federal Confidentiality of Alcohol and Drug Abuse Patient Records regulations: The Federal rules restrict any use of the information to criminally investigate or prosecute any alcohol or drug abuse patient.[facility] SystemIn the event this information is protected by the Federal Confidentiality of Alcohol and Drug Abuse Patient Records regulations: The Federal rules restrict any use of the information to criminally investigate or prosecute any alcohol or drug abuse patient.[facility] SystemIn the event this information is protected by the Federal Confidentiality of Alcohol and Drug Abuse Patient Records regulations: The Federal rules restrict any use of the information to criminally investigate or prosecute any alcohol or drug abuse patient.[facility] SystemIn the event this information is protected by the Federal Confidentiality of Alcohol and Drug Abuse Patient Records regulations: The Federal rules restrict any use of the information to criminally investigate or prosecute any alcohol or drug abuse patient.[facility] SystemIn the event this information is protected by the Federal Confidentiality of Alcohol and Drug Abuse Patient Records regulations: The Federal rules restrict any use of the information to criminally investigate or prosecute any alcohol or drug abuse patient.[facility] SystemIn the event this information is protected by the Federal Confidentiality of Alcohol and Drug Abuse Patient Records regulations: The Federal rules restrict any use of the information to criminally investigate or prosecute any alcohol or drug abuse patient.[facility] SystemIn the event this information is protected by the Federal Confidentiality of Alcohol and Drug Abuse Patient Records regulations: The Federal rules restrict any use of the information to criminally investigate or prosecute any alcohol or drug abuse patient.[facility] SystemIn the event this information is protected by the Federal Confidentiality of Alcohol and Drug Abuse Patient Records regulations: The Federal rules restrict any use of the information to criminally investigate or prosecute any alcohol or drug abuse patient.[facility] SystemIn the event this information is protected by the Federal Confidentiality of Alcohol and Drug Abuse Patient Records regulations: The Federal rules restrict any use of the information to criminally investigate or prosecute any alcohol or drug abuse patient.[facility] SystemIn the event this information is protected by the Federal Confidentiality of Alcohol and Drug Abuse Patient Records regulations: The Federal rules restrict any use of the information to criminally investigate or prosecute any alcohol or drug abuse patient.[facility] SystemIn the event this information is protected by the Federal Confidentiality of Alcohol and Drug Abuse Patient Records regulations: The Federal rules restrict any use of the information to criminally investigate or prosecute any alcohol or drug abuse patient.[facility] Reason for Visit (unrecogniz ed section and content) Reason Comments Physical Therapy Specialty Diagnoses / Procedures [facility] Diagnoses Follow-up examination after colorectal surgery Procedures CONSULT TO PHYSICAL THERAPY PHYSICAL THERAPY EVALUATION HIGH COMPLEX [address] [place] [address] [place] [address] [facility] [address] [place] [address] Referral ID Status Reason Start Date Expiration Date Visits Requested Visits Authorized [id number] Authorized Auto-Generat ed Referral 01/04/2022 11/05/2022 30 30 Reason Comments Refill Request dexlansoprazole Reason Comments Established Patient Follow-Up Reason Comments Post Op Reason Comments Established Patient Reason Comments Appointment for script refill Reason Comments Gastroparesis 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 Referred To Contact XR IMAGING Diagnoses Gastroesophageal reflux disease, unspecified whether esophagitis present Procedures XR ESOPHAGRAM W DOUBLE CONTRAST RADIOLOGIC EXAM ESOPHAGUS DOUBLE CONTRAST STUDY Winston Hannah, [place] [address] Xr Imaging Referral ID Status Reason Start Date Expiration Date V isits Requested Visits Authorized [id number] Closed Auto-Generate d Referral 11/17/2022 12/17/2023 1 1 Reason Comments Gastroparesis Reason Comments Schedule Procedure Reason Comments Appointment Pt has not arrived f or her 1 pm appointment Reason Comments Results Sigmoidoscopy result s; patient questions Reason Comments Refill Request Specialty Diagnoses / Procedures [facility] Referred To Contact CT IMAGING Diagnoses Periumbilical abdominal pain Procedures CT ABD/PEL W IVCON CT ABD & PELVIS W/[place] [address] [place] [address] Ct Imaging Referral ID Status Reason Start Date Expiration Date V isits Requested Visits Authorized [id number] Closed Auto-Generate d Referral 07/28/2022 11/05/2022 2 [...] By Gustavo salazar Referred To Contact Diagnoses Taylor grade D esophagitis Early satiety Unintentional weight loss Gastroparesis Procedures DIAGNOSTIC UPPER ENDOSCOPY IA ESOPHAGOGASTRODUODENOSCOPY TRANSORAL DIAGNOSTIC Padmaja Llamas MD, PhD [address] [place] [address] Referral ID Status Reason Start Date Expiration Date V isits Requested Visits Authorized [id number] New Request 03/06/2024 03/31/2025 1 1 Specialty Diagnoses / Procedures Referred By Gustavo salazar Referred To Contact Orthopedics / ORTHOPAEDIC SURGERY Diagnoses shoulder pain right pt will hand carry MRI Procedures POLI ACUTE Self Ryan Lynne MD [address] [place] [address] Referral ID Status Reason Start Date Expiration Date V isits Requested Visits Authorized [id number] Closed Financial Clearance Not Required 09/06/2020 10/05/2020 [...] Switch 05/14/2024 Reason Comments Post-op Inspire Implant Reason Onset Date Comments Results 06/04/2025 Reason Comments <9>Gastroparesis Gas Reason Comments Asthma Reason Comments Gynecologic Exam LMP: LAVH BS 2014HRT : Estrace cream, Estradiol 1MG Last pap 06-12-24 neg.Last mammogram 10-31-23 [facility].Denies breast, urinary, or bowel concerns. Care Teams (unrecognized sec tion and content) [...] Active Start: October 09, 2024 Anibal Medrano , DO Other Provider Active Start : October [...] Active Niecy Duron PA-C Attending Provider Active Bead Wire Taper Relationship Specialty Start Date End Date Eliceo Gómez Jr. [address] [place] [id number] PCP - General Family Practice 10/14/20 Bead Wire Taper Relationship Specialty Start Date End Date Eliceo Gómez Jr. [address] [place] [id number] PCP - General Family Practice 10/14/20 Bead Wire Taper Relationship Specialty Start Date End Date Eliceo Gómez Jr. [address] [place] [address] PCP - General Family Practice 10/14/20 Bead Wire Taper Relationship Specialty Start Date End Date Eliceo Gómez Jr. [address] [place] [address] PCP - General Family Practice 10/14/20 Bead Wire Taper Relationship Specialty Start Date End Date Eliceo Gómez Jr. [address] [place] [address] PCP - General Family Practice 10/14/20 Bead Wire Taper Relationship Specialty Start Date End Date Eliceo Gómez Jr. [address] [place] [address] PCP - General Family Practice 10/14/20 Gwendolyn Stroud [address] [place] [address] Family Practice 03/14/22 Bead Wire Taper Relationship Specialty Start Date End Date Eliceo Gómez Jr. [address] [place] [address] PCP - General Family Practice 10/14/20 Gwendolyn Stroud [address] [place] [address] Family Practice 03/14/22 Bead Wire Taper Relationship Specialty Start Date End Date Eliceo Gómez Jr. [address] [place] [address] PCP - General Family Practice 10/14/20 Gwendolyn Stroud [address] [place] [address] Family Practice 03/14/22 Bead Wire Taper Relationship Specialty Start Date End Date Eliceo Gómez JrReno [address] [place] [address] PCP - General Family Practice 10/14/20 Gwendolyn Stroud [address] [place] [address] Family Practice 03/14/22 Bead Wire Taper Relationship Specialty Start Date End Date Stephonleigha Eliceo Lugo [address] [place] [address] PCP - General Family Practice 10/14/20 Gwendolyn Stroud [address] [place] [address] Family Practice 03/14/22 Bead Wire Taper Relationship Specialty Start Date End Date Eliceo Gómez [address] [place] [address] PCP - General Family Practice 10/14/20 Gwendolyn Stroud [address] [place] [address] Family Practice 03/14/22 Bead Wire Taper Relationship Specialty Start Date End Date Dalia Eliceo Lugo [address] [place] [address] PCP - General Family Practice 10/14/20 Gwendolyn Stroud CHEMISTRY DEPARTMENT CHAIR Family Practice 03/14/22 Bead Wire Taper Relationship Specialty Start Date End Date DaliaEliceo Parish [address] [place] [address] PCP - General Family Practice 10/14/20 Gwendolyn Stroud, CHEMISTRY DEPARTMENT CHAIR Family Practice 03/14/22 Bead Wire Taper Relationship Specialty Start Date End Date Eliceo Gómez Jr. [address] [place] [address] PCP - General Family Practice 10/14/20 Gwendolyn Stroud, CHEMISTRY DEPARTMENT CHAIR Family Practice 03/14/22 Bead Wire Taper Relationship Specialty Start Date End Date Eliceo Gómez Jr. [address] [place] [address] PCP - General Family Practice 10/14/20 Gwendolyn Stroud, CHEMISTRY DEPARTMENT CHAIR Family Practice 03/14/22 Bead Wire Taper Relationship Specialty Start Date End Date Eliceo Gómez Jr. [address] [place] [address] PCP - General Family Medicine 10/14/20 Gwendolyn Stroud, CHEMISTRY DEPARTMENT CHAIR Family Medicine 03/14/22 Bead Wire Taper Relationship Specialty Start Date End Date Eliceo Gómez Jr. [address] [place] [address] PCP - General Family Medicine 10/14/20 Gwendolyn Stroud, CHEMISTRY DEPARTMENT CHAIR Family Medicine 03/14/22 Bead Wire Taper Relationship Specialty Start Date End Date Eliceo Gómez Jr. [address] [place] [address] PCP - General Family Medicine 10/14/20 Gwendolyn Stroud, CHEMISTRY DEPARTMENT CHAIR Family Medicine 03/14/22 Bead Wire Taper Relationship Specialty Start Date End Date Eliceo Gómez Jr. [address] [place] [address] PCP - General Family Medicine 10/14/20 Gwendolyn Stroud CNP Family Medicine 03/14/22 Team Status: Inactive Member Role Status Dates Shannon Gómez DO Primary Care Provider Active Beto Snyder MD Attending Provider Active Bead Wire Taper Relationship Specialty Start Date End Date Eliceo Gómez Jr. [address] [place] [address] PCP - General Family Medicine 10/14/20 Gwendolyn Stroud CNP [address] [place] [address] Family Medicine 03/14/22 Bead Wire Taper Relationship Specialty Start Date End Date Eliceo Gómez Jr. [address] [place] [address] PCP - General Family Medicine 10/14/20 Gwendolyn Stroud, KWESI [address] [place] [address] Family Medicine 03/14/22 Bead Wire Taper Relationship Specialty Start Date End Date Eliceo Gómez Jr. [address] [place] [address] PCP - General Family Medicine 10/14/20 Gwendolyn Stroud, KWESI [address] [place] [address] Family Medicine 03/14/22 Bead Wire Taper Relationship Specialty Start Date End Date Eliceo Gómez Jr. [address] [place] [address] PCP - General Family Medicine 10/14/20 Gwendolyn Stroud CNP [address] [place] [address] Family Medicine 03/14/22 Bead Wire Taper Relationship Specialty Start Date End Date Eliceo Gómez Jr. [address] [place] [address] PCP - General Family Medicine 10/14/20 Gwendolyn Stroud CNP [address] [place] [address] Family Medicine 03/14/22 Bead Wire Taper Relationship Specialty Start Date End Date Eliceo Gómez Jr. [address] [place] [address] PCP - General Family Medicine 10/14/20 Gwendolyn Stroud CNP [address] [place] [address] Family Medicine 03/14/22 Bead Wire Taper Relationship Specialty Start Date End Date Eliceo Gómez Jr. [address] [place] [address] PCP - General Family Medicine 10/14/20 Gwendolyn Stroud CNP [address] [place] [address] Family Medicine 03/14/22 Bead Wire Taper Relationship Specialty Start Date End Date Eliceo Gómez Jr. [address] [place] [address] PCP - General Family Medicine 10/14/20 Gwendolyn Stroud CNP [address] [place] [address] Family Medicine 03/14/22 Bead Wire Taper Relationship Specialty Start Date End Date Eliceo Gómez Jr. [address] [place] [address] PCP - General Family Medicine 10/14/20 Gwendolyn Stroud, CHEMISTRY DEPARTMENT CHAIR [address] [place] [address] Family Medicine 03/14/22 Bead Wire Taper Relationship Specialty Start Date End Date Eliceo Gómez Jr. [address] [place] [address] PCP - General Family Medicine 10/14/20 Gwendolyn Stroud, CHEMISTRY DEPARTMENT CHAIR [address] [place] [address] Family Medicine 03/14/22 Bead Wire Taper Relationship Specialty Start Date End Date Eliceo Gómez Jr. [address] [place] [address] PCP - General Family Medicine 10/14/20 Gwendolyn Stroud, CHEMISTRY DEPARTMENT CHAIR [address] [place] [address] Family Medicine 03/14/22 Team Status: Inactive Member Role Status Henrietta Gómez DO Primary Care Provider Active Beto Cartagena MD Attending Provider Active Bead Wire Taper Relationship Specialty Start Date End Date Eliceo Gómez Jr. [address] [place] [address] PCP - General Family Medicine 10/14/20 Gwendolyn Stroud, CHEMISTRY DEPARTMENT CHAIR [address] [place] [address] Family Medicine 03/14/22 Bead Wire Taper Relationship Specialty Start Date End Date Eliceo Gómez Jr. [address] [place] [address] PCP - General Family Medicine 10/14/20 Gwendolyn Stroud, KWESI [address] [place] [address] Family Medicine 03/14/22 Bead Wire Taper Relationship Specialty Start Date End Date Eliceo Gómez Jr. [address] [place] [address] PCP - General Family Medicine 10/14/20 Gwendolyn Stroud, KWESI [address] [place] [address] Family Medicine 03/14/22 Bead Wire Taper Relationship Specialty Start Date End Date Eliceo Gómez Jr. [address] [place] [address] PCP - General Family Medicine 10/14/20 Gwendolyn Stroud CNP [address] [place] [address] Family Medicine 03/14/22 Bead Wire Taper Relationship Specialty Start Date End Date Eliceo Gómez Jr. [address] [place] [address] PCP - General Family Medicine 10/14/20 Gwendolyn Stroud, CHEMISTRY DEPARTMENT CHAIR [address] [place] [address] Family Medicine 03/14/22 Bead Wire Taper Relationship Specialty Start Date End Date Eliceo Gómez Jr. [address] [place] [address] PCP - General Family Medicine 10/14/20 Gwendolyn Stroud, KWESI [address] [place] [address] Family Medicine 03/14/22 Bead Wire Taper Relationship Specialty Start Date End Date Eliceo Gómez Jr. [address] [place] [address] PCP - General Family Medicine 10/14/20 Gwendolyn Stroud CNP [address] [place] [address] Family Medicine 03/14/22 Bead Wire Taper Relationship Specialty Start Date End Date Eliceo Gómez Jr. [address] [place] [address] PCP - General Family Medicine 10/14/20 Gwendolyn Stroud CNP [address] [place] [address] Family Medicine 03/14/22 Team Status: Inactive Member Role Status Dates Shannon Gómez , DO Primary Care Provider Active Anibal Valle , DO Emergency Provider Active Bead Wire Taper Relationship Specialty Start Date End Date Eliceo Gómez Jr. [address] [place] [address] PCP - General Family Medicine 10/14/20 Gwendolyn Stroud CNP [address] [place] [address] Family Medicine 03/14/22 Bead Wire Taper Relationship Specialty Start Date End Date Eliceo Gómez Jr. [address] [place] [address] PCP - General Family Medicine 10/14/20 Gwendolyn Stroud CNP [address] [place] [address] Family Medicine 03/14/22 Bead Wire Taper Relationship Specialty Start Date End Date Eliceo Gómez Jr. [address] [place] [address] PCP - General Family Medicine 10/14/20 Gwendolyn Stroud CNP [address] [place] [address] Family Medicine 03/14/22 Bead Wire Taper Relationship Specialty Start Date End Date Eliceo Gómez Jr., DO [address] [place] [address] PCP - General Family Medicine 10/14/20 Gwendolyn Stroud CNP [address] [place] [address] Family Medicine 03/14/22 Bead Wire Taper Relationship Specialty Start Date End Date Eliceo Gómez Jr., DO [address] [place] [address] PCP - General Family Medicine 10/14/20 Gwendolyn Stroud CNP [address] [place] [address] Family Medicine 03/14/22 Team Status: Inactive Member Role Status Dates Shannon Gómez DO Primary Care Provider Active Start: November 23, 2023 End: November 23, 2023 Tez Vazquez DO Attending Provider Active Start : November 23, 2023 End: November 23, 2023 Bead Wire Taper Relationship Specialty Start Date End Date Eliceo Gómez Parish Morales, DO [address] [place] [address] PCP - General Family Medicine 10/14/20 Gwendolyn Stroud CNP [address] [place] [address] Family Medicine 03/14/22 Bead Wire Taper Relationship Specialty Start Date End Date DaliaEliceo Jr., DO [address] [place] [address] PCP - General Family Medicine 10/14/20 Gwendolyn Stroud, KWESI [address] [place] [address] Family Medicine 03/14/22 Bead Wire Taper Relationship Specialty Start Date End Date DaliaEliceo Jr., DO [address] [place] [address] PCP - General Family Medicine 10/14/20 Gwendolyn Stroud, CHEMISTRY DEPARTMENT CHAIR [address] [place] [address] Family Medicine 03/14/22 Bead Wire Taper Relationship Specialty Start Date End Date Eliceo Gómez Jr., DO [address] [place] [address] PCP - General Family Medicine 10/14/20 Gwendolyn Stroud, CHEMISTRY DEPARTMENT CHAIR [address] [place] [address] Family Medicine 03/14/22 Bead Wire Taper Relationship Specialty Start Date End Date Eliceo Gómez Jr., DO [address] [place] [address] PCP - General Family Medicine 10/14/20 Gwendolyn Stroud, CHEMISTRY DEPARTMENT CHAIR [address] [place] [address] Family Medicine 03/14/22 Bead Wire Taper Relationship Specialty Start Date End Date Eliceo Gómez Jr., DO [address] [place] [address] PCP - General Family Medicine 10/14/20 Gwendolyn Stroud, CHEMISTRY DEPARTMENT CHAIR [address] [place] [address] Family Medicine 03/14/22 Bead Wire Taper Relationship Specialty Start Date End Date Eliceo Gómez Jr., DO [address] [place] [address] PCP - General Family Medicine 10/14/20 Gwendolyn Stroud, CHEMISTRY DEPARTMENT CHAIR [address] [place] [address] Family Medicine 03/14/22 Bead Wire Taper Relationship Specialty Start Date End Date Shannon Gómez, DO [address] [place], [place] [address] PCP - General Family Medicine 11/14/23 Team [...] May 27, 2024 End: May 27, 2024 Bead Wire Taper Relationship Specialty Start Date End Date Eliceo Gómez Jr., DO [address] [place] [address] PCP - General Family Medicine 10/14/20 Gwendolyn Stroud, KWESI [address] [place] [address] Family Medicine 03/14/22 Bead Wire Taper Relationship Specialty Start Date End Date Eliceo Gómez Jr., DO [address] [place] [address] PCP - [facility] 10/14/20 Bead Wire Taper Relationship Specialty Start Date End Date Shannon Gómez, [address] [place] [address] PCP - [facility] Family Medicine 11/14/23 Bead Wire Taper Relationship Specialty Start Date End Date Eliceo Gómez DO [address] [place] [address] PCP - [facility] Family Medicine 04/04/23 Eliceo Gómez DO [address] [place] [address] [facility] 05/06/23 Dipti Acevedo, DO [address] [place] [address] Referring Physician Obstetrics and Gynecology 05/20/24 Bead Wire Taper Relationship Specialty Start Date End Date Eliceo Gómez DO [address] [place] [address] PCP - General Family Medicine 04/04/23 Eliceo Gómez DO [address] [place] [address] PCP - [facility] 05/06/23 Dipti Acevedo, [address] [place] [address] Referring Physician Obstetrics and Gynecology 05/20/24 Team Status: Inactive Member Role Status Henrietta Gómez DO Primary Care Provider Active Start: September 16, 2024 End: September 16, 2024 Anibal Medrano DO Attending Provider Active S tart: September 16, 2024 End: September 16, 2024 Bead Wire Taper Relationship Specialty Start Date End Date Eliceo Gómez DO [address] [place] [address] PCP - [facility] 04/04/23 Eliceo Gómez DO [address] [place] [address] PCP - [facility] 05/06/23 Dipti Acevedo, [address] [place] [address] Referring Physician Obstetrics and Gynecology 05/20/24 Bead Wire Taper Relationship Specialty Start Date End Date Eliceo Gómez DO [address] [place] [address] PCP - General Family Medicine 04/04/23 Eliceo Gómez DO [address] [place] [address] PCP - [facility] 05/06/23 Dipti Acveedo, [address] [place] [address] Referring Physician Obstetrics and Gynecology 05/20/24 Bead Wire Taper Relationship Specialty Start Date End Date Eliceo Gómez DO [address] [place] [address] PCP - General Family Medicine 04/04/23 Eliceo Gómez DO [address] [place] [address] PCP - [facility] 05/06/23 Dipti Acevedo, [address] [place] [address] Referring Physician Obstetrics and Gynecology 05/20/24 Bead Wire Taper Relationship Specialty Start Date End Date Eliceo Gómez DO [address] [place] [address] PCP - General Family Medicine 04/04/23 Eliceo Gómez, [address] [place] [address] PCP - [facility] 05/06/23 Dipti Acevedo, DO [address] [place] [address] Referring Physician Obstetrics and Gynecology 05/20/24 Bead Wire Taper Relationship Specialty Start Date End Date Eliceo Gómez, DO [address] [place] [address] PCP - General Family Medicine 04/04/23 Eliceo Gómez, DO [address] [place] [address] PCP - [facility] 05/06/23 Dipti Acevedo, DO [address] [place] [address] Referring Physician Obstetrics and Gynecology 05/20/24 Bead Wire Taper Relationship Specialty Start Date End Date Eliceo Gómez, DO [address] [place] [address] PCP - General Family Medicine 04/04/23 Eliceo Gómez, DO [address] [place] [address] PCP - [facility] 05/06/23 Dipti Acevedo, DO [address] [place] [address] Referring Physician Obstetrics and Gynecology 05/20/24 Bead Wire Taper Relationship Specialty Start Date End Date Eliceo Gómez, DO [address] [place] [address] PCP - General Family Medicine 04/04/23 Eliceo Gómez, DO [address] [place] [address] PCP - [facility] 05/06/23 Dipti Acevedo, DO [address] [place] [address] Referring Physician Obstetrics and Gynecology 05/20/24 Bead Wire Taper Relationship Specialty Start Date End Date Shannon Gómez DO [address] [place] [address] PCP - General Family Medicine 11/14/23 Bead Wire Taper Relationship Specialty Start Date End Date Eliceo Gómez, DO [address] [place] [address] PCP - General Family Medicine 04/04/23 Eliceo Gómez, DO [address] [place] [address] [facility] 05/06/23 Dipti Acevedo, DO [address] [place] [address] Referring Physician Obstetrics and Gynecology 05/20/24 Bead Wire Taper Relationship Specialty Start Date End Date Eliceo Gómez, [address] [place] [address] PCP - General Family Medicine 04/04/23 Eliceo Gómez, DO [address] [place] [address] [facility] - [facility] 05/06/23 Dipti Acevedo, DO [address] [place] [address] Referring Physician Obstetrics and Gynecology 05/20/24 Bead Wire Taper Relationship Specialty Start Date End Date Eliceo Gómez DO [address] [place] [address] PCP - General Family Medicine 04/04/23 Eliceo Gómez, DO [address] [place] [address] PCP - [facility] 05/06/23 Dipti Acevedo, DO [address] [place] [address] Referring Physician Obstetrics and Gynecology 05/20/24 Bead Wire Taper Relationship Specialty Start Date End Date Eliceo Gómez Jr., DO [address] [place] [address] PCP - General Family Medicine 12/11/19 [facility] [address] [phone] (Work) Consulting Physician Behavioral Health 12/20/23 Bead Wire Taper Relationship Specialty Start Date End Date Eliceo Gómez Jr., DO [address], [address] [place] [address] PCP - General Family Medicine 12/11/19 Bead Wire Taper Relationship Specialty Start Date End Date Eliceo Gómez Jr., DO [address] [place] [address] PCP - General Family Medicine 12/11/19 Bead Wire Taper Relationship Specialty Start Date End Date Eliceo Gómez Jr., DO [address] [place] [address] PCP - General Family Medicine 12/11/19 [facility] [address] [facility] [address] [phone] (Work) Consulting Physician Behavioral Health 12/20/23 Bead Wire Taper Relationship Specialty Start Date End Date Eliceo Gómez Jr., DO [address] [place] [address] PCP - General Family Medicine 12/11/19 [facility] [address] [facility] [address] [place] [phone] (Work) Consulting Physician Behavioral Health 12/20/23 Bead Wire Taper Relationship Specialty Start Date End Date Eliceo Gómez Jr., DO [address] [place] [address] PCP - General Family Medicine 12/11/19 [facility] [address] [facility] [address] [phone] (Work) Consulting Physician Behavioral Health 12/20/23 Bead Wire Taper Relationship Specialty Start Date End Date Eliceo Gómez Jr., DO [address] [place] [address] PCP - General Family Medicine 12/11/19 [facility] [address] [place] [address] [address] [phone] (Work) Consulting Physician Behavioral Health 12/20/23 Bead Wire Taper Relationship Specialty Start Date End Date Eliceo Gómez, DO [address] [place] [address] PCP - General Family Medicine 04/04/23 Eliceo Gómez, DO [address] [place] [address] PCP - [facility] 05/06/2310/05 Dipti Acevedo, DO [address] [place] [address] Referring Physician Obstetrics and Gynecology 05/20/24 Bead Wire Taper Relationship Specialty Start Date End Date Eliceo Gómez DO [address] [place] [address] PCP - General Family Medicine 04/04/23 Eliceo Gómez DO [address] [place] [address] PCP - [facility] 05/06/2310/05 Dipti Acevedo DO [address] [place] [address] Referring Physician Obstetrics and Gynecology 05/20/24 Bead Wire Taper Relationship Specialty Start Date End Date Eliceo Gómez Jr., DO [address] [facility], [address] [place] [address] PCP - General Family Medicine 12/11/19 [place] [phone] (Work) Consulting Physician Behavioral Health 12/20/23 Team Status: Inactive Member Role Status Dates Shannon Gómez DO Primary Care Provider Active Start: February 25, 2025 End: February 25, 2025 Monica Burns NP-C Attending Provider Active St art: February 25, 2025 End: February 25, 2025 Bead Wire Taper Relationship Specialty Start Date End Date Eliceo Gómez DO [address] [place] [address] PCP - General Family Medicine 04/04/23 Eliceo Gómez DO [address] [place] [address] PCP - [facility] 05/06/2310/05 Dipti Acevedo DO [address] [place] [address] Referring Physician Obstetrics and Gynecology 05/20/24 Bead Wire Taper Relationship Specialty Start Date End Date Eliceo Gómez Jr., DO [address] [place] [address] PCP - General Family Medicine 12/11/19 [facility] [address] [facility] [address] [phone] (Work) Consulting Physician Behavioral Health 12/20/23 Team Status: Inactive Member Role Status Henrietta Gómez DO Primary Care Provider Active Start: April 30, 2025 End: April 30, 2025 Salma Galeas DO Attending Provider Active Start: April 30, 2025 End: April 30, 2025 Bead Wire Taper Relationship Specialty Start Date End Date Eliceo Gómez Jr., [address] [place] [address] PCP - General Family Medicine 12/11/19 [facility] [address] [phone] (Work) Consulting Physician Behavioral Health 12/20/23 Bead Wire Taper Relationship Specialty Start Date End Date Eliceo Gómez Jr., DO [address] [place] [address] PCP - General Family Medicine 12/11/19 [facility] [address] [phone] (Work) Consulting Physician Behavioral Health 12/20/23 Bead Wire Taper Relationship Specialty Start Date End Date Eliceo Gómez DO [address] [place] [address] PCP - General Family Medicine 04/04/23 Dipti Acevedo, DO [address] [place] [address] Referring Physician Obstetrics and Gynecology 05/20/24 Bead Wire Taper Relationship Specialty Start Date End Date Eliceo Gómez DO [address] [place] [address] PCP - General Family Medicine 04/04/23 Dipti Acevedo DO [address] [place] [address] Referring Physician Obstetrics and Gynecology 05/20/24 Goals [...] Radiology 0540 (Given - Provid er: SAULO oMrrison) Morphine Sulfate injection 4 mg (COMPLETED) 4 [...] BE BASED ON THE PRIMARY CLINICAL RECORDS. [email or web address] provides no warranty or guarantee of the accuracy or completeness of information in this document.
--- OUTSIDE RECORDS SUMMARY | 2025-06-25 07:05 | XMS_ITS | Encounter Summary ---
Author Organization [facility] Address [address] [place] [address] Care Team Providers Care Global Account Director Name Role Phone Eliceo Gómez DO Primary Care Provider [phone] Eliceo Gómez DO Unavailable [phone] Beata Hernandez Unavailable Juan Damico DO Unavailable [phone] Encounter Details Date Type Department Care Team [...] often do you attend chur ch or moravian services? Never 04/14/2023 Do you [...] Recorded Patient Health Questionnaire-2 Score 0 03/14/2024 [facility] - Occupational [...] Dermatology [address] [place] [address] Chantale Sweet PA [address] [place] [address] 11/20/2025 8:30 AM EST Office Visit [facility] [address] [place] [address] Nelsy Harris APRN-LITHOGRAPHIC RETOUCHER APPRENTICE [address] [place] [address] documented as of this encounter Procedures Procedure Name Priority Date/Time Associated Diagnosis Comments XR FOOT RT MIN 3V 04/17/2024 1:1 7 PM EDT documented in this encounter Results * XR FOOT RT MIN 3V (04/17/2024 1:17 PM EDT) Anatomical Region Laterality Modality Other 04/17/2024 1:17 PM EDT Narrative 04/17/2024 1:20 PM EDT [address] [address] XRay Report Signed Patient: MARY FUENTES MR#: [id number] : 1970 Acct:[id number] Age/Sex: 53 / F ADM Date: 04/17/24 Loc: EC Attending Dr: Sade Felix D.P.M. Ordering Physician: Sade Felix D.P.M. Date of Service: 04/17/24 Procedure(s): XR foot RT min 3V Accession Number(s): [id number] cc: Sade Felix D.P.M.; Isatu GÓMEZ [place] [id number] Patient Name: MARY FUENTES MRN: [id number] date: 1970 Sex: F Assigned Patient Location: Current Patient Location: Accession/Order Number: [id number] Exam Date: 04/17/2024 11:50 Report Date: 04/17/2024 [...] Signed By: 04/17/24 1320 DD/ 1317 TD/TT: Theatre Instructor: Procedure Note Radiology, Radiologist, MD - 04/17/2024 [facility] [place] [id number] XRay Report Signed Patient: MARY FUENTES DMR#: [id number] : 1970Acct:[id number] Age/Sex: 53 / FADM Date: 04/17/24 Loc: EC Attending Dr: Sade Felix D.P.M. Ordering Physician: Sade Felix D.P.M. Date of Service: 04/17/24 Procedure(s): XR foot RT min 3V Accession Number(s): [id number] cc: Sade Felix D.P.M.; Isatu GÓMEZ [facility] [place] [id number] Patient Name: MARY FUENTES MRN: [id number] date: 1970 Sex: F Assigned Patient Location: Current Patient Location: Accession/Order Number: [id number] Exam Date: 04/17/2024 11:50 Report Date: 04/17/2024 [...] Dictated By: Nicki Dacosta M.D. Signed By:04/17/24 1324 DD/ 1317 TD/TT: Theatre Instructor: us Generic External Data Provider [facility] Final Result documented in this encounter Visit Diagnoses Not on filedocumented in this encounter Care Teams Global Account Director Relationship Specialty Start Date End Date Eliceo Gómez, DO [address] [place] [address] PCP - General Family Medicine 04/04/23 Eliceo Gómez DO [address] [place] [address] PCP - [facility] 05/06/23 Beata Hernandez PA [address] [place] [address] Dietitian Nutrition 08/08/23 05/16/24 Juan Damico DO [address] [place] [address] Referring Physician Obstetrics and Gynecology 05/20/24 documented as of this encounter
--- OUTSIDE RECORDS SUMMARY | 2025-06-25 07:05 | XMS_ITS | Encounter Summary ---
Author Organization [facility] Address [address] [facility] [place] [address] Care Team Providers Care Barge Captain Name Role Phone Eliceo Gómez DO Primary Care Provider [phone] Eliceo Gómez DO Unavailable [phone] Beata Hernandez Unavailable Juan Damico DO Unavailable [phone] Encounter Details Date Type Department Care Team (Late st Contact Info) Description 04/12/2024 [facility] [place] [facility] [address] [facility] [address] [place] [phone] Eliceo Gómez DO [address] [facility] [address] [place] [address] Social History Tobacco Use Types Packs/Day Years [...] Recorded Patient Health Questionnaire-2 Score 0 03/14/2024 [facility] [...] [address] [place] [address] Chantale Sweet PA [address] [place] [address] 11/20/2025 8:30 AM EST Office Visit [facility] [address] [place] [address] Nelsy Harris APRN-AUTHORIZER [address] [place] [address] documented as of this encounter Visit Diagnoses Not on filedocumented in this encounter Care Teams Barge Captain Relationship Specialty Start Date End Date Eliceo Gómez DO [address] [place] [address] PCP - General Family Medicine 04/04/23 Eliceo Gómez DO [address] [place] [address] PCP - [facility] 05/06/23 Beata Hernandez PA [address] [place] [address] Dietitian Nutrition 08/08/23 05/16/24 Juan Damico DO [address] [place] [address] Referring Physician Obstetrics and Gynecology 05/20/24 documented as of this encounter
--- OUTSIDE RECORDS SUMMARY | 2025-06-25 07:05 | XMS_ITS | Encounter Summary ---
Author Organization [facility] Address [address] [place] [address] Care Team Providers Care Analysis Specialist Name Role Phone Eliceo Gómez DO Primary Care Provider [phone] Eliceo Gómez DO Unavailable [phone] Beata Hernandez Unavailable Juan Damico DO Unavailable [phone] Encounter Details Date Type Department Care Team [...] often do you attend chur ch or presybeterian services? Never 04/14/2023 Do you [...] 0 03/14/2024 [facility] - Occupational Stress Questionnaire [...] Dermatology [address] [place] [address] Chantale Sweet PA [address] [place] [address] 11/20/2025 8:30 AM EST Office Visit [facility] [address] [place] [address] Nelsy Harris APRN-TRAFFIC REPORTER [address] [place] [address] documented as of this encounter Procedures Procedure Name Priority Date/Time Associated Diagnosis Comments XR FOOT RT MIN 3V 03/20/2024 10: 17 AM EDT documented in this encounter Results * XR FOOT RT MIN 3V (03/20/2024 10:17 AM EDT) Anatomical Region Laterality Modality Other 03/20/2024 10:1 7 AM EDT Narrative 03/20/2024 10:19 AM EDT [address] [address] XRay Report Signed Patient: MARY FUENTES MR#: [id number] : 1970 Acct:[id number] Age/Sex: 53 / F ADM Date: 03/20/24 Loc: EC Attending Dr: Sade Felix D.P.M. Ordering Physician: Sade Felix D.P.M. Date of Service: 03/20/24 Procedure(s): XR foot RT min 3V Accession Number(s): [id number] cc: Sade Felix D.P.M.; Isatu GÓMEZ [place] [id number] Patient Name: MARY FUENTES MRN: [id number] date: 1970 Sex: F Assigned Patient Location: Current Patient Location: Accession/Order Number: [id number] Exam Date: 03/20/2024 09:50 Report Date: 03/20/2024 [...] Signed By: 03/20/24 1019 DD/ 1017 TD/TT: Psychiatric Attendant: Procedure Note Radiology, Radiologist, MD - 03/20/2024 [place] [address] XRay Report Signed Patient: MARY FUENTES DMR#: [id number] : 1970Acct:[id number] Age/Sex: 53 / FADM Date: 03/20/24 Loc: EC Attending Dr: Sade Felix D.P.M. Ordering Physician: Sade Felix D.P.M. Date of Service: 03/20/24 Procedure(s): XR foot RT min 3V Accession Number(s): [id number] cc: Sade Felix D.P.M.; Isatu GÓMEZ [facility] [place] [id number] Patient Name: MARY FUENTES MRN: [id number] date: 1970 Sex: F Assigned Patient Location: Current Patient Location: Accession/Order Number: [id number] Exam Date: 03/20/2024 09:50 Report Date: 03/20/2024 [...] M.D. Signed By:03/20/24 1019 DD/ 1017 TD/TT: Psychiatric Attendant: Generic External Data Provider [facility] Final Result documented in this encounter Visit Diagnoses Not on filedocumented in this encounter Care Teams Analysis Specialist Relationship Specialty Start Date End Date Eliceo Gómez DO [address] [place] [address] PCP - General Family Medicine 04/04/23 Eliceo Gómez DO [address] [place] [address] PCP - [facility] 05/06/23 Beata Hernandez PA [address] [place] [address] Dietitian Nutrition 08/08/23 05/16/24 Juan Damico DO [address] [place] [address] Referring Physician Obstetrics and Gynecology 05/20/24 documented as of this encounter
--- OUTSIDE RECORDS SUMMARY | 2025-06-25 07:05 | XMS_ITS | Encounter Summary ---
Author Organization [facility] Address [address] [facility] [place] [address] Care Team Providers Care Fish Worm Grower Name Role Phone Eliceo Gómez DO Primary Care Provider Eliceo Gómez DO Unavailable [phone] Beata Hernandez Unavailable Juan Damico DO Unavailable [phone] Encounter Details Date Type Department Care Team (Late st Contact Info) Description 04/15/2024 [facility] [place] [facility] [address] [facility] [address] [place] [address] Eliceo Gómez DO [address] [facility] [address] [place] [address] Social History Tobacco Use Types Packs/Day Years [...] [address] [place] [address] Chantale Sweet PA [address] [place] [address] 11/20/2025 8:30 AM EST Office Visit [facility] [address] [place] [address] Nelsy Harris APRN-CHIMNEY BUILDER BRICK [address] [place] [address] documented as of this encounter Visit Diagnoses Not on filedocumented in this encounter Care Teams Fish Worm Grower Relationship Specialty Start Date End Date Eliceo Gómez DO [address] [place] [address] PCP - General Family Medicine 04/04/23 Eliceo Gómez DO [address] [place] [address] PCP - [facility] 05/06/23 Beata Hernandez PA [address] [place] [address] Dietitian Nutrition 08/08/23 05/16/24 Juan Damico DO [address] [place] [address] Referring Physician Obstetrics and Gynecology 05/20/24 documented as of this encounter
--- OUTSIDE RECORDS SUMMARY | 2025-06-25 07:05 | XMS_ITS | Encounter Summary ---
Author Organization [id number] [address] [place] [address] Care Team Providers Care Manager Case Management Name Role Phone Dalia Morales DO, George R Primary Care Provider + Encounter Details Date Type Department Care Team (Late st Contact Info) Description 12/23/2019 Telephone [facility] [address] [facility] [place] [address] Jenifer Helm, MAKI Social History [...] Description 06/27/2025 3:30 PM EDT Hospital Encounter [facility] - Endoscopy [address] [facility] [place] [address] Noman Mayo MD [address] [facility], [facility] [address] [place] [address] 06/27/2025 3:30 PM EDT - 06/27/2025 4:00 PM EDT [facility] [address] [facility] [place] [address] Noman Mayo MD [address] [facility] [place] [address] ESOPHAGOGASTRODUODENOSCOPY DILATATION 07/15/2025 9:00 AM EDT Office Visit [facility] Neurology, A Department of [address] [place] [address] Justin Bhat MD [address] [place] [address] [address] [place] [address] 08/19/2025 3:30 PM EDT Office Visit [facility] Neurology, A Department of [address] [place] [address] Pauline Christensen MD [address] [place] [address] [address] [place] [address] Scheduled Procedures Name Priority Associated Diagnoses Date/Ti ne ESOPHAGOGASTRODUODENOSCOPY DILATATION esophageal dysphagia 06/27/2025 3:30 PM EDT documented as of this encounter Visit Diagnoses Not on filedocumented in this encounter Additional Health Concerns Infection Onset Date Last Indicated Resolved Time COVID-19 Rule-Out 09/22/2020 09/22/2020 09/22/2020 3:17 PM EST documented as of this encounter Care Teams Manager Case Management Relationship Specialty Start Date End Date Eliceo Gómez Jr., [address] [place] [address], [id number] [address] PCP - General Family Medicine 12/11/19 Jenna Butler [address] Consulting Physician Behavioral Health 12/20/23 documented as of this encounter
--- OUTSIDE RECORDS SUMMARY | 2025-06-25 07:05 | XMS_ITS | Encounter Summary ---
Author Organization [facility] Address [address] [place] [facility] [place] [address] Care Team Providers Care Investment Banking Associate Name Role Phone Eliceo Gómez DO Primary Care Provider Eliceo Gómez DO Unavailable [phone] Beata Hernandez Unavailable Juan Damico DO Unavailable [phone] Encounter Details Date Type Department Care Team (Late st Contact Info) Description 04/18/2024 [facility] [place] [facility] [address] [facility] [address] [place] [address] Eliceo Gómez DO [address] [facility] [address] [place] [address] Social History Tobacco Use Types Packs/Day Years [...] Patient Health Questionnaire-2 Score 0 03/14/2024 [facility] [...] [address] [place] [address] Chantale Sweet PA [address] [place] [address] 11/20/2025 8:30 AM EST Office Visit [facility] [address] [place] [address] Nelsy Harris APRN-PHOTO MACHINE OPERATOR [address] [place] [address] documented as of this encounter Visit Diagnoses Not on filedocumented in this encounter Care Teams Investment Banking Associate Relationship Specialty Start Date End Date Eliceo Gómez DO [address] [place] [address] PCP - General Family Medicine 04/04/23 Eliceo Gómez DO [address] [place] [address] PCP - [facility] 05/06/23 Beata Hernandez PA [address] [place] [address] Dietitian Nutrition 08/08/23 05/16/24 Juan Damico DO [address] [place] [address] Referring Physician Obstetrics and Gynecology 05/20/24 documented as of this encounter
--- NOTE | 2025-06-25 07:07 | XR_ITS ---
[facility] [place] [id number] Patient Name: ELSIE FUENTES MRN: [id number] date: 1970 Sex: F Assigned Patient Location: [facility] Current Patient Location: [facility] Accession/Order Number: [id number] Exam Date: 06/25/2025 12:56 Report Date: 06/25/2025 12:58 At the request of: SADE WILDE DPDirk Procedure: XR foot RT min 3V ? FOOT - 3 views CLINICAL HISTORY: Pain COMPARISON: None FINDINGS: Stable appearance of the the postsurgical changes. Hardware is intact. No finding of hardware failure loosening. No fractures dislocation. Moderate degenerative changes first MTP joint. Soft tissues unremarkable XR/XR foot RT min 3V IMPRESSION: Stable chronic findings. No acute osseous abnormality. Impression dictated by: Eitan Weber M.D. 06/25/2025 12:58 PM Dictation Location: [place] [address] Electronically authenticated by: [id number] Y Date: 06/25/2025 12:58
--- NOTE | 2025-06-25 07:15 | XR_ITS ---
[facility] [place] [address] Patient Name: ELSIE FUENTES MRN: [id number] date: 1970 Sex: F Assigned Patient Location: [facility] Current Patient Location: [facility] Accession/Order Number: [id number] Exam Date: 06/25/2025 13:03 Report Date: 06/25/2025 13:05 At the request of: SADE WILDE DPDirk Procedure: XR tibia fibula RT 2V Right tibia and fibula plain film HISTORY: Chronic right foot and ankle pain. Ankle fusion. Continued pain COMPARISON: Plain film right foot 06/25/2025 ACUTE FINDINGS: None DEGENERATIVE CHANGE: Unremarkable SOFT TISSUE FINDINGS: Unremarkable JOINT EFFUSION: None POSTOP CHANGES: Subtalar and midfoot fusion hardware. No complication BONE MINERALIZATION: Adequate XR/XR tibia fibula RT 2V IMPRESSION: No hardware failure. No acute bony findings. Impression dictated by: Andres Bullard M.D. 06/25/2025 1:05 PM [facility] Electron[facility] authenticated by: [id number] Y Date: 06/25/2025 13:05
== END 2025-06-25 06:58 | disposition home or self-care (01) ==
LOC: RAD 06:59
PROVIDERS: PCP Family Medicine; Visit Provider Podiatrist Foot & Ankle Surgery
DX: M79.671 Pain in right foot (principal); M79.604 Pain in right leg; Z98.890 Other specified postprocedural states
CPT/HCPCS: 73590; 73630

== ENCOUNTER 2025-07-09 08:33 | Outpatient (OUT) | payer OTHER, MEDICARE, SELFPAY ==
--- OUTSIDE RECORDS SUMMARY | 2025-07-09 08:52 | XMS_ITS | CCD ---
Author Organization [facility] Care Team Providers Care Unit Support Representative Name Role Phone PARISH GÓMEZ Primary Care Unavailable Eliceo Gómez Jr. Primary Care Provider Maximus Gwendolyn Unavailable Maximus OROSCO, Gwendolyn Unavailable [phone] Beto Snyder Unavailable Tita Daugherty Unavailable Erica Kingston Unavailable Eliceo Gómez Unavailable Unavailable Unavailable Allison Arita Unavailable Eliceo Gómez Jr. Primary Care Provider Maximus OROSCO, Gwendolyn Unavailable Eliceo Gómez Unavailable DO Shannon Gómez Primary Care Provider MD Beto Snyder Attending Provider [phone] Eliceo Gómez Jr. Primary Care Provider Maximus OROSCO, Gwendolyn Unavailable Beto Cartagena Unavailable MD Beto Cartagena Attending Provider WINSTON HANNAH Attending Unavailable WINSTON HANNAH Referring Unavailable ELICEO GÓMEZ JR Primary Care Unavail able ISRA MASTERS Attending Unavailable ISRA MASTERS Referring Unavailable ELICEO GÓMEZ JR Primary Care Unavail able DO Shannon Gómez Primary Care Provider [phone] LORRAINE Duron Attending Provider DR FELISHA SKELTON Consulting Unavailable DR Isatu GÓMEZ Primary Care Unavailable HAY ., DR BAEZA [...] ELIAS ., DR ELDER Rios Consulting Unavailable [place], DR NICKI Gale Consulting Unavailable HIGHLANDER, SADE Keys Consulting Unavailable EDUARDO ., NANCY LAMA Consulting [...] Ellis Consulting Unavailable KAREEM, NIECY Consulting Unavailable DO Anibal Valle Emergency Provider [...] Gómez Jr., Eliceo LOAIZA Primary Care Provi ap PAULINE CHRISTENSEN Attending Unavailable ELICEO GÓMEZ JR Referring Unavailable ELICEO GÓMEZ JR Primary Care Unavailable DO Shannon Gómez Primary Care Provider [phone] DO Tez Vazquez Attending Provider PAM WANG Referring Unavailable ELICEO GÓMEZ JR Primary Care Unavail able aDlia Morales DO, George Robert Primary Care Provi pa ELICEO GÓMEZ JR Primary Care Unavail able PAM WANG Admitting Unavailable PAM WANG Attending Unavailable PAM WANG Referring Unavailable ELICEO GÓMEZ JR Primary Care Unavail able JAIRON LAI Attending Unavailable PAM WANG Attending Unavailable STEPHONLEIGHA JENKINS, ELICEO LUGO Primary Care Unavail able DALIA JENKINS, ELICEO LUGO Primary Care Unavail able NELSY CHÁVEZ Attending Unavailable FLOWER LOPEZ Attending Unavailable STEPHONLEIGHA JENKINS, ELICEO LUGO Primary Care Unavail able STEPHONLEIGHA JENKINSELICEO Primary Care Unavail able DALIA JENKINS, ELICEO LUGO Primary Care Unavail able DALIA JENKINSELICEO Primary Care Unavail able PAM WANG Attending Unavailable DALIA JENKINS, ELICEO LUGO Primary Care Unavail able FELIPE, PAM Attending Unavailable FELIPE, PAM Referring Unavailable STEPHONLEIGHA JENKINSELICEO Primary Care Unavail able DORIS ARIAS Attending Unavailable Shannon Gómez DO Primary Care Provider DO Shannon Gómez Primary Care Provider FADUMO Felix Attending Provider Unavailable Primary Care Provider UnavailEliceo Santos DO Primary Care Provider Eliceo Gómez DO Unavailable Dipti Acevedo DO Unavailable Grant TRACY-CMonica Attending Provider [phone] Shannon Gmóez DO Primary Care Provider Anibal Medrano DO Attending Provider [phone] Dipti Acevedo DO Attending Provider Farhad BENSON, Padmaja Attending Provider [phone] Dalia Morales DO, George R Primary Care Provider Everett Valdez MD Attending Provider [phone] Shannon GÓMEZ Primary Care Unavailable MERISSA DELAROSA Referring Unavailable SELF, SELF Referring Unavailable Shannon GÓMEZ Primary Care Unavailable Shannon GÓMEZ Primary Care Unavailable RADHA CARDENAS Attending Unavailable Shannon GÓMEZ Referring Unavailable Shannon GÓMEZ Primary Care Unavailable MERISSA DELAROSA Attending Unavailable Shannon GÓMEZ Referring Unavailable Shannon GÓMEZ Primary Care Unavailable Shannon GÓMEZ Referring Unavailable FARHAD, PADMAJA Referring Unavailable Shannon GÓMEZ Primary Care Unavailable MERISSA DELAROSA Attending Unavailable LI, NA Referring Unavailable Shannon GÓMEZ Primary Care Unavailable RADHA CARDENAS Attending Unavailable RADHA CARDENAS Attending Unavailable Shannon GÓMEZ Primary Care Unavailable Shannon GÓMEZ Referring Unavailable Shannon GÓMEZ Referring Unavailable RADHA CARDENAS Attending Unavailable Shannon GÓMEZ Primary Care Unavailable LI, NA Referring Unavailable Shannon GÓMEZ Primary Care Unavailable MILAGROS FRANCO Attending Unavailab le Eliceo Gómez DO Unavailable [phone] CHRISTENSEN, AJAZ Referring Unavailable CHRISTENSEN, AJAZ Referring Unavailable CHRISTENSEN, AJAZ Attending Unavailable CHRISTENSEN, AJAZ Attending Unavailable CHRISTENSEN, AJAZ Attending Unavailable Shannon Gómez DO Primary Care Provider Anibal Medrano DO Attending Provider Everett Valdez MD Attending Provider Shannon Gómez DO Primary Care Provider Grant TRACY-CMonica Attending Provider Shannon Gómez DO Primary Care Provider [phone] Everett Valdez MD Attending Provider Salma Galeas DO Attending Provider [facility], [facility] Referring Unavailable ELICEO GÓMEZ JR Primary Care Unavailable CHRISTENSEN, AJAZ A Referring Unavailable ELICEO GÓMEZ JR Primary Care Unavailable CHRISTENSEN, AJAZ A Referring Unavailable ELICEO GÓMEZ JR Primary Care Unavailable Brandyn BENSON, Andrius Valfonzo Attending Unavailable Gipelon BENSON, Andrius Vytautas Attending Unavailable Gipelon BENSON, Andrius Vytautas Attending Unavailable Gipelon BENSON, Andrius Vytautas Attending Unavailable Brandyn BENSON, Andrius Vytautas Attending Unavailable Brandyn BENSON, Andrius Vytautas Attending Unavailable Brandyn BENSON, Andrius Vytautas Attending Unavailable Brandyn BENSON, Andrius Vytautas Attending Unavailable Gipelon BENSON, Andrius Vytautas Attending Unavailable ELICEO GÓMEZ Attending Unavailable NANCY SWENSON Attending Unavailable NANCY SWENSON Attending Unavailable DIPTI ACEVEDO Attending Unavailable SIDNEY AMEZQUITA Attending Unavailable ELICEO GÓMEZ Attending Unavailable KAELICEO AHUJA Referring Unavailable KAFTTOMASA, ELICEO Ellis Attending Unavailable KAELICEO AHUJA R Referring Unavailable KAFTTOMASA, ELICEO Ellis Referring Unavailable RON KING Attending Unavailable DALIA, ELICEO Ellis Referring Unavailable DIPTI ACEVEDO Attending Unavailable DIPTI ACEVEDO Attending Unavailable RON KING Attending Unavailable DIPTI ACEVEDO Attending Unavailable DIPTI ACEVEDO Attending Unavailable DIPTI ACEVEDO Attending Unavailable DIPTI ACEVEDO Attending Unavailable NELSY SNYDER Attending Unavailable Shannon Gómez DO Primary Care Provider Grant MARKETING PROJECT SPECIALIST-CMonica Attending Provider Shannon Gómez Primary Care Unavailable [place], Anibal N Admitting Unavailable Bialdailyi, Anibal N Attending Unavailable Grant Monica Blanca Admitting Unavailable Monica Burns Attending Unavailable Shannon Gómez Primary Care Unavailable Everett Valdez Admitting Unavailable Everett Valdez Attending Unavailable Shannon Gómez Primary Care Unavailable Everett Valdez Admitting Unavailable Everett Valdez Attending Unavailable Shannon Gómez Primary Care Unavailable Shannon Gómez Primary Care Unavailable Dipti Acevedo Admitting Unavailable Dipti Acevedo Attending Unavailable Cecilia Burnsa Blanca Admitting Unavailable Monica Burns Attending Unavailable Shannon Gómez Primary Care Unavailable Shannon Gómez Primary Care Unavailable [place], Anibal N Admitting Unavailable [place], Anibal N Attending Unavailable Li, Na Attending Unavailable Shannon Gómez Primary Care Unavailable Li, Na Admitting Unavailable Grant, Monica E Admitting Unavailable Grant, Monica E Attending Unavailable Shannon Gómez Primary Care Unavailable Shannon Gómez Primary Care Unavailable [place], Anibal N Admitting Unavailable Bialjose, Anibal N Attending Unavailable ALBERTO SOLIS Attending Unavailable ELICEO GÓMEZ JR Referring Unavailable ELICEO GÓMEZ JR Primary Care Unavailable ALBERTO SOLIS Admitting Unavailable ALBERTO SOLIS Attending Unavailable ALBERTO SOLIS Referring Unavailable ELICEO GÓMEZ JR Primary Care Unavailable Allergies Allergy Classification Reported Allergen(s) Allergy Type Date of Onset Reaction(s) Facility risperiDONE (1 source) risperiDONE Drug Allergy 9 [facility] (20 sources) risperiDONE; Translations: [RisperDAL TABS] Drug Allergy 0 Intolerance, Other (See Comments) [facility] (1 source) oxyCODONE Drug Allergy [facility] Repository (1 source) risperiDONE Drug Allergy [facility] Repository (20 sources) POISON BRENDA EXTRACT; Translations: [POISON BRENDA EXTRACT] Drug Allergy 3 Rash [facility] (20 sources) risperiDONE Drug Allergy 9 [facility] (1 source) risperiDONE Drug Allergy [facility] Repository (1 source) POISON BRENDA; Translations: [POISON BRENDA] Propensity to adverse reactions to drug (disorder) 2 [facility] Repository (1 source) risperiDONE Drug Allergy 5 [facility] Repository Medications Current Medications Medication Drug [...] 1 tablet by mouth every twelve hours [id number] 200 actuat albuterol 0.09 mg/actuat metered dose [...] if needed Albuterol-Budesonide (Airsupra) 90-80 MCG/ACT aerosol (5 sources) Start: 06-06-20 Albuterol-Budesonide (Airsupra) 90-80 MCG/ACT aerosol Indications: Mild persistent asthma with acute exacerbation (HCC) Inhale 2 Inhalations every 4 (four) hours if needed (for wheezing) 10.7 g 11 06/06/2025 Active 24 hr amphetamine aspartate 6.25 mg / amphetamine sulfate 6.25 mg / dextroamphetamine saccharate 6.25 mg / dextroamphetamine sulfate 6.25 mg extended release oral capsule (4 sources) Central Nervous System Stimulant Start: 06-18-20 take 1 capsule by mouth in the morning, then take 1 capsule by mouth every twenty-four hours at bedtime amphetamine-dextroam phetamine XR (Adderall XR) 25 MG 24 hr capsule Take 25 mg by mouth in the morning and 25 mg before bedtime. 06/18/2025 Active Start: 05-16-2025 take 1 capsule by mo [facility] every twenty-four hours amphetamine-dextroamphetamine XR (ADDERA LL [...] Start: 09-27-2021 take 1 tablet by yancy once daily ARIPiprazole (ABILIFY) 30 mg tablet [...] 2020 10:25am take 1 capsule by mo [facility] in the morning, then take 1 capsule by mouth at bedtime celecoxib (CeleBREX) 200 mg capsule Take 1 capsule (200 mg total) by mouth in the morning and 1 capsule (200 mg total) before bedtime. 0 Active Comment on above: take 1 capsule by mo [facility] twice a day if needed cetirizine hydrochloride [...] order) Start: 03-11-2024 [facility] Vitamin D3 125 MCG (5000 UT) per tablet Take 1 tablet by mouth daily. 90 tablet 3 03/11/2024 Active Start: 05-12-2023 take 1 capsule by mo [facility] once daily cholecalciferol, vitamin D3, 5,000 [...] by mouth once daily. 168 hr cloNIDine 0.69266 mg/hr transdermal system (4 sources) Central alpha-2 Adrenergic Agonist Start: cloNIDine (CATAPRES-TTS) 0.1 mg/[address] 1 patch on the skin once a week. New patch on Monday 0 09/27/2023 Active colestipol hydrochloride 1000 mg oral tablet (17 sources) Bile Acid Sequestrant Start: take 1 tablet by mouth at bedtime [...] (Reorder) cyproheptadine hydrochloride 4 mg oral tablet (7 sources) Start: 01-09-2025 cyproheptadine (Periactin) 4 MG tablet Take 4 mg by mouth as needed at bedtime 01/09/2025 Active Daridorexant (9 sources) Start: 09-16-2024 take 1 tablet by [...] ml enoxaparin sodium 100 mg/ml prefilled syringe (19 sources) Low Molecular Weight Heparin Start: 05-29-2024 [...] mg/ml vaginal cream (20 sources) Estrogen Start: 04-11-2025 End: 06-24-2025 estradiol (Estrace) 0.1 MG/G M vaginal cream Indications: Hormone replacement therapy , Dyspareunia in female Apply 0.5g vaginally twice weekly. 42.5 g 1 06/24/2025 Active Start: 10-22-2024 estradiol (Est race) 0.1 MG/GM [...] Propionate (Flon ase Allergy Relief) 50 mcg/actuation [place],Suspension Discontinued 2 SPRAY INTRANASAL Daily October 15, 2018 1:00am June 18, 2019 3:04pm Comment on above: Use 1 [place] in each nostril once daily. 30 actuat [...] Start: 10-14-2024 take 1 puff(s) by mo [facility] once daily Trelegy Ellipta 100-62.5-25 MCG/ACT aerosol [...] Start: 08-15-2024 take 1 puff(s) by mo [facility] once daily Trelegy Ellipta 100-62.5-25 MCG/ACT aerosol powder Indications: Mild intermittent asthma, unspecified whether complicated (CMS/HCC) INHALE 1 PUFF BY MOUTH DAILY 60 each 1 08/15/2024 Active Start: 01-11-2024 End: 12-08-2024 take 1 puff(s) by inhalation once daily Lwovohkjltw-Rcdjqerng-Vxoilh 100-62.5-25 MCG/ACT aerosol powder Indications: Asthma Inhale [...] puff(s) by in halation in the morning xnrcbrdzdit-qkyvcktlu-wmkmgoxj (TRELEGY ELLIPTA) 100-62.5-25 mcg blister with device Indications: Asthma, unspecified asthma severity, unspecified whether complicated, unspecified whether persistent Inhale 1 puff in the morning. 60 each 5 05/31/2022 Active End: 07-11-2024 Xededfigbwj-Yozzqgucq-Ngrrny (Trelegy Ellipta) 100-62.5-25 MCG/ACT aerosol powder Inhale 07/11/2024 Discontinued take 1 puff(s) by in halation once daily Trelegy Ellipta 100-62.5-25 MCG/INH 1 puff Inhalation Once a day Not-Taking Comment on above: Inhale 1 Puff as ins tructed once daily. fluvoxaMINE maleate 50 mg oral tablet (16 sources) Serotonin Reuptake Inhibitor Start: 4 take [...] inulin 200 mg / lactobacillus rhamnosus gg [id number] unt oral capsule (1 source) Start: End: take 1 capsule by mouth once daily lactobacillus rhamnosus (CULTURELLE) 10 billion cell -200 mg capsule Take 1 capsule by mouth once daily. 30 capsule 0 06/07/2022 07/07/2022 Active Comment on above: Take 1 capsule by [facility] once daily. iv contrast (will be [...] 0 Active take 2 tablets by mo [facility] in the morning lamoTRIgine (LaMICtal) 25 mg tablet Take 2 tablets (50 mg total) by mouth in the morning. 0 Active Comment on above: Take 25 mg by mouth once daily. lidocaine 0.05 mg/mg medicated patch (1 source) Antiarrhythmic, Amide Local Anesthetic Start: lidocaine (LIDODERM) 5 % APPLY 1 PATCH [...] on above: Take 1 capsule by mo [facility] every afternoon. LORazepam 1 [...] (20 sources) Angiotensin 2 Receptor Zack Start: 05-12-2025 take 1 tablet by mouth [...] once daily meloxicam 15 mg oral tablet (6 sources) Nonsteroidal Anti-inflammatory Drug Start: 01-03-2025 take [...] 2020 10:26am Multiple Vitamin (Daily-Elisa Multivitamin) tablet (13 sources) Start: 11-04-2024 take 1 tablet by mouth once daily Multiple Vitamin (Daily-Elisa Multivitamin) tablet Take 1 tablet by mouth Daily 11/04/2024 Active nystatin 130782 unt/ml oral suspension (20 sources) Polyene Antifungal Start: 08-01-2024 End: 08-09-2024 nystatin (Mycostatin) [id number] UNIT/ML suspension Indications: Oral candidiasis Take 5 mL (500,000 Units) by mouth in the morning and 5 mL (500,000 Units) at noon and 5 mL (500,000 Units) in the evening and 5 mL (500,000 Units) before bedtime. Do all this for 8 days. 160 mL 08/01/2024 08/09/2024 Active Start: 05-03-2024 End: 07-11-2024 nystatin (Mycostatin) 861228 UNIT/ML suspension Take 5 mL by mouth [...] MORNING 90 tablet 1 06/05/2025 Active Start: 09-19-2021 take 1 mg by [...] the AM and 2 mg PM sennosides, alf 8.6 mg oral tablet (6 sources) Start: [...] mg/ml topical cream (20 sources) Corticosteroid Start: 04-14-2025 End: 06-24-2025 triamcinolone (Kenalog) 0.1 % cream Indications: Erythema Apply topically in the morning and before bedtime. to affected area. 45 g 1 06/24/2025 Active Start: 11-27-2024 triamcinolone (Kenalog) 0.1 % cream [...] 11 06/03/2024 07/11/2024 Discontinued Start: 09-14-2022 Kenalog-40 05 Oct, 2022 40 mg Start: 08-19-2021 KENALOG - 10 m g 14 Aug, 2021 10 mg Vitamin B12 100 MCG (9 sources) Vitamin B12 100 MCG as directed Orally Active vitamin D2-vitamin K1 20-120 mcg/4 drops drops (1 source) vitamin D2-vitam in K1 20-120 mcg/4 drops drops Active zonisamide 50 mg oral capsule (3 sources) Anti-epileptic Agent Start: 06-12-2025 take 1 capsule by mouth once daily zonisamide (Zonegran) 50 MG capsule Take 50 mg by mouth Daily 06/12/2025 Active Completed/Discontinued Medications Medication Drug Class(es) Dates Sig (Normalized) Sig (Original) acetaminophen 250 mg / aspirin 250 mg / caffeine 65 mg oral tablet (16 sources) Platelet Aggregation Inhibitor, Nonsteroidal Anti-inflammatory Drug, [...] 10:40am alendronic acid 70 mg oral tablet (13 sources) Bisphosphonate Start: 06-05-2023 End: 09-16-2024 take 1 tablet by mouth every week Alendronate (Fosamax) 70 mg Tablet Discontinued 70 MG PO every week June 05, 2023 12:00am September 16, 2024 4:04pm ALPRAZolam 1 mg oral tablet (16 sources) Benzodiazepine Start: 09-13-2017 End: 10-01-2018 take 1 tablet by mouth three times daily Alprazolam 1 mg tablet Discontinued 1 TAB PO Three times daily September 13, 2017 1:00am October 01, 2018 10:40am amitriptyline hydrochloride 25 mg oral tablet (16 sources) Tricyclic Antidepressant Start: 02-18-2020 End: 06-05-2023 [...] (Therapy completed) brexpiprazole 3 mg oral tablet (16 sources) Atypical Antipsychotic Start: 02-18-2020 End: 06-05-2023 [...] 500 mg cephalexin 500 mg oral capsule (16 sources) Cephalosporin Antibacterial Start: 09-20-20 17 End: [...] completed) docusate sodium 50 mg / sennosides, alf 8.6 mg oral tablet (16 sources) Start: 09-20-2017 End: 10-01-2018 take 2 [...] hydrochloride 240 mg extended release oral tablet (16 sources) alpha-Adrenergic Agonist, Histamine-1 Receptor Antagonist Start: 12-19-2018 End: 06-18-2019 take 1 tablet by mouth once daily in the morning, then take 1 tablet by mouth every twenty-four hours Fexofenadine-Pse udoephedrine (Ember-D 24 Hour) 180-240 mg Tablet Extended Release 24 Hr Discontinued 1 TAB PO Every morning December 19, 2018 1:00am June 18, 2019 3:04pm fluconazole 150 mg oral tablet (16 sources) Azole Antifungal Start: 02-18-2020 End: 06-05-2023 [...] needed for pain. Take 1 tablet by [facility] every 6 hours as needed for pain for up to 7 days. lactobacillus rhamnosus gg [id number] unt oral capsule (20 sources) Start: End: [...] Discontinued Start: 12-27-2021 take 1 capsule by [facility] once daily lactobacillus rhamnosus (CULTURELLE) 10 billion cell capsule Take 1 capsule by mouth once daily. 30 capsule 0 12/27/2021 Active Comment on above: Take 1 capsule by [facility] once daily. linaclotide 0.145 mg oral capsule (16 sources) Guanylate Cyclase-C Agonist Start: 8 End: [...] mL lurasidone hydrochloride 40 mg oral tablet (16 sources) Atypical Antipsychotic Start: 06-18-2019 End: 02-18-2020 [...] to surgery. montelukast 10 mg oral tablet (16 sources) Leukotriene Receptor Antagonist Start: End: take [...] Comment on above: Take 2 tablets by [facility] as directed. Take 2 tablet at 6pm, 7pm, and 11pm the evening prior to surgery. nitrofurantoin, macrocrystals 25 mg / nitrofurantoin, monohydrate 75 mg oral capsule (19 sources) Nitrofuran Antibacterial Start: End: take 1 capsule by mouth twice daily at mealtime Nitrofurantoin Monohyd/M-Cryst (Macrobid) 100 mg capsule Discontinued 100 MG PO Twice daily 08 10February 18, 2020 12:00am June 05, 2023 10:13am must administer with a meal/food Comment on above: Take 1 capsule by [facility] twice daily. 24 hr oxybutynin chloride 10 mg extended release oral tablet (16 sources) Cholinergic Muscarinic Antagonist Start: End: take 1 tablet by mouth once daily Oxybutynin Chloride (Ditropan Xl) 10 mg Tablet Extended Release 24hr Discontinued 10 MG PO Daily October 01, 2018 1:00am June 19, 2019 1:23pm phenazopyridine hydrochloride 200 mg oral tablet (16 sources) Start: 020 End: take 1 tablet by mouth every eight hours Phenazopyridine (Pyridium) 200 mg tablet Discontinued 200 MG PO Q8H 6 2 February 18, 2020 12:00am June 05, 2023 10:13am polyethylene glycol 3350 74599 mg powder for oral solution (3 sources) [...] Comment on above: [facility] psyllium 520 mg oral capsule (3 sources) Start: 12-27-2021 End: 02-08-2022 psyllium Husk (METAMUCIL) 0.52 gram capsule Take 1 capsule by mouth as directed. As needed for constipation 0 12/27/2021 02/08/2022 Discontinued (Course of therapy completed) Comment on above: Take 1 capsule by mo [facility] as directed. As needed for constipation QUEtiapine 200 mg oral tablet (16 sources) Atypical Antipsychotic Start: 10-01-2018 End: 12-19-2018 [...] above: Take 2 tablets by mo ut three times daily as needed. simethicone in [...] on above: Take 1,000 mcg by mo [facility] once daily. vortioxetine 10 [...] Episodic Conditions associated with dizziness or vertigo (19 sources) Postural dizziness; Translations: [Dizziness and giddiness] [...] Chronic Esophageal disorders (2 sources) Esophagitis; Translations: [[place] grade D esophagitis] 04-12-2024 Episodic Esophageal disorders [...] 2 Chronic Other aftercare (1 source) Other nursing home (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; Translations: [OTH HALFWAY CURRENT DRUG THERAPY] Onset: 3 Episodic Other [...] dyspareunia] 06-24-2025 Chronic Other female genital disorders (1 source) [...] Translations: [Flatulence] 06-06-2025 Episodic Other gastrointestinal disorders (2 sources) Abdominal distension (gaseous); Translations: [Abdominal distension (gaseous)] Onset: 5 Episodic Other gastrointestinal disorders (1 source) Other specified diseases of the digestive system; Translations: [Other specified diseases of the digestive system] Onset: 5 Episodic Other gastrointestinal disorders (1 source) Other [...] 3 04-04-2023 Chronic Other nervous system disorders (4 sources) Polyneuropathy; Translations: [Polyneuropathy, unspecified] 04-30-2025 Chronic Other nervous system disorders (1 source) Polyneuropathy, unspecified; Translations: [Polyneuropathy, unspecified] Onset: 5 Chronic Other nervous system disorders (1 source) [...] fluid intake] 10-23-2024 Episodic Other skin disorders (3 sources) Night [...] 1 10-24-2023 Chronic Other upper respiratory infections (16 sources) Upper respiratory infection; Translations: [Acute upper [...] of digestive tract] Onset: 4 10-25-2024 Episodic Residual codes; unclassified (2 sources) Early [...] specified] Onset: 2 02-18-2020 Episodic Viral infection (16 sources) Disease caused by 2019-nCoV; Translations: [COVID-19] [...] lability] Onset: 04-04-2023 04-04-2023 Episodic Mood disorders (17 sources) Mood disorders Onset: 10-23-2023 Resolved: 01-20-2025 [...] Onset: 11-30-2023 Resolved: 06-23-2025 11-30-2023 Episodic Other infections; including parasitic (20 [...] Episodic Other nutritional; endocrine; and metabolic disorders (6 sources) Weight decreased; Translations: [Abnormal weight loss] Onset: 09-08-2023 Resolved: 06-23-2025 09-08-2023 Episodic Other screening for suspected conditions [...] 07-28-2021 Resolved: 07-05-2023 Episodic Sprains and strains (1 source) Strain [...] Name Value Interpretation Reference Range Facility MR lumbar spine wo conon MR lumbar spine wo con [facility] [place] [address] [place] [address] MRI Report Signed Patient: Mary Leal MR#: [id number] : 1970 Acct:[id number] Age/Sex: 55 / F ADM Date: 07/01/25 Loc: [facility] Room: Type: [facility] Attending Dr: Monica IBARRA Copies to: FRED Schafer Ordering Provider: FRED Schafer Date of Service: 07/01/25 MR/MR lumbar spine wo con: M47.816,M54.16 MR lumbar spine wo con 07/01/2025 7:54 AM SIGNS AND SYMPTOMS: Chronic low back pain radiating down left leg with numbness, tingling, and weakness PROTOCOL: Multiplanar multisequence MR images of the lumbar spine without IV contrast COMPARISON: 10/10/2024 FINDINGS: The bones of the lumbar spine are in anatomic alignment. There is preservation of vertebral body heights and intervertebral disc spaces. Benign-appearing hemangioma is noted at L1 and L2 similar to the prior exam. The conus terminates at the inferior endplate of the L1 vertebral body level. No epidural or paraspinous fluid collection is appreciated. At T12-L1: There is a normal disc, central canal, and neural foramen. At L1-L2: There is a normal disc, central canal, and neural foramen. At L2-L3: There is a normal disc, central canal, and neural foramen. At L3-L4: There is a normal disc, central canal, and neural foramen. At L4-L5: There is a broad-based disc bulge with facet hypertrophy. There is minimal bilateral neural foraminal narrowing. No spinal canal narrowing. At L5-S1: There is a normal disc, central canal, and neural foramen. MR/MR lumbar spine wo con IMPRESSION: At L4-L5: There is a broad-based disc bulge with facet hypertrophy. There is minimal bilateral neural foraminal narrowing. No spinal canal narrowing. This is unchanged. No significant spinal canal or neural foraminal narrowing is noted otherwise. Impression dictated by: Howie Garcia M.D. 07/01/2025 3:21 PM Dictation Location: [facility]- Transcribed By: MARIO 07/01/25 1521 Dictated By: Howie Garcia II, MD 07/01/25 1514 Signed By: 07/01/25 1521 Normal [facility] Magnetic resonance imaging r eportOrdered By: Howie Garcia on 07-01-2025 Study report [facility] [place] [address] MRI Report Signed Patient: Mary Leal MR#: [id number] : 1970 Acct:[id number] Age/Sex: 55 / F ADM Date: 5 Loc: [facility] Room: Type: [facility] Attending Dr: Monica IBARRA Copies to: FRED Schafer~ Ordering Provider: FRED Schafer Date of Service: 07/01/25 MR/MR lumbar spine wo con: M47.816,M54.16 MR lumbar spine wo con 07/01/2025 7:54 AM SIGNS AND SYMPTOMS: Chronic low back pain radiating down left leg with numbness,tingling, and weakness PROTOCOL: Multiplanar multisequence MR images of the lumbar spine without IV contrast COMPARISON: 10/10/2024 FINDINGS: The bones of the lumbar spine are in anatomic alignment. There is preservation of vertebral body heights and intervertebral disc spaces. Benign-appearing hemangioma is noted at L1 and L2 similar to the prior exam. The conusterminates at the inferior endplate of the L1 vertebral body level. No epidural or paraspinous fluid collection is appreciated. At T12-L1: There is a normal disc, central canal, and neural foramen. At L1-L2: There is a normal disc, central canal, and neural foramen. At L2-L3: There is a normal disc, central canal, and neural foramen. At L3-L4: There is a normal disc, central canal, and neural foramen. At L4-L5: There is a broad-based disc bulge with facet hypertrophy. There is minimal bilateral neural foraminal narrowing. No spinal canal narrowing. At L5-S1: There is a normal disc, central canal, and neural foramen. MR/MR lumbar spine wo con IMPRESSION: At L4-L5: There is a broad-based disc bulge with facet hypertrophy. There is minimal bilateral neural foraminal narrowing. No spinal canal narrowing. This is unchanged. No significant spinal canal or neural foraminal narrowing is noted otherwise. Impression dictated by: Howie Garcia M.D. 07/01/2025 3:21 PM Dictation Location: [place] [address] Transcribed By: [facility] 07/01/25 152 Dictated By: Howie Garcia II, MD 07/01/25 1514 Signed By: 07/01/25 [facility] Work Phone: XR FOOT RT MIN 3Von 06-25-[address] [place] [address] XRay Report Signed Patient: MARY LEAL MR#: [id number] : 1970 Acct:[id number] Age/Sex: 55 / F ADM Date: 06/25/25 Loc: RAD Attending Dr: Sade Felix D.P.M. Ordering Physician: Sade Felix D.P.M. Date of Service: 06/25/25 Procedure(s): XR foot RT min 3V Accession Number(s): [id number] cc: Sade Felix D.P.M.; Isatu GÓMEZ [address] [address] Patient Name: MARY LEAL MRN: [id number] date: 1970 Sex: F Assigned Patient Location: RAD Current Patient Location: RAD Accession/Order Number: [id number] Exam Date: 06/25/2025 12:56 Report Date: 06/25/2025 12:58 At the request of: SADE FELIX DPDirk Procedure: XR foot RT min 3V ? FOOT - 3 views CLINICAL HISTORY: Pain COMPARISON: None FINDINGS: Stable appearance of the the postsurgical changes. Hardware is intact. No finding of hardware failure loosening. No fractures dislocation. Moderate degenerative changes first MTP joint. Soft tissues unremarkable XR/XR foot RT min 3V IMPRESSION: Stable chronic findings. No acute osseous abnormality. Impression dictated by: Eitan Weber M.D. 06/25/2025 12:58 PM Dictation Location: [place] [address] Electronically authenticated by: [id number] Y Date: 06/25/2025 12:58 Dictated By: Eitan Weber M.D. Signed By: 06/25/25 1304 DD/ 1258 TD/TT: Public Policy Manager: [facility] Radiology, Radiologist, MD - 06/25/2025 [place] [address] XRay Report Signed Patient: MARY LEAL MR#: [id number] : 1970 Acct:[id number] Age/Sex: 55 / F ADM Date: 06/25/25 Loc: [facility] Attending Dr: Sade Felix D.P.M. Ordering Physician: Sade Felix D.P.M. Date of Service: 06/25/25 Procedure(s): XR foot RT min 3V Accession Number(s): [id number] cc: Sade Felix D.P.M.; Isatu GÓMEZ [place] [address] Patient Name: MARY LEAL MRN: [facility]:[id number] date: 1970 Sex: F Assigned Patient Location: [facility] Current Patient Location: [facility] Accession/Order Number: [id number] Exam Date: 06/25/2025 12:56 Report Date: 06/25/2025 12:58 At the request of: SADE FELIX DPM Procedure: XR foot RT min 3V ? FOOT - 3 views CLINICAL HISTORY: Pain COMPARISON: None FINDINGS: Stable appearance of the the postsurgical changes. Hardware is intact. No finding of hardware failure loosening. No fractures dislocation. Moderate degenerative changes first MTP joint. Soft tissues unremarkable XR/XR foot RT min 3V IMPRESSION: Stable chronic findings. No acute osseous abnormality. Impression dictated by: Eitan Weber M.D. 06/25/2025 12:58 PM Dictation Location: [place] [address] Electronically authenticated by: [id number] Y Date: 06/25/2025 12:58 Dictated By: Eitan Weber M.D. Signed By: 06/25/25 1300 DD/ 1258 TD/TT: Public Policy Manager: [facility] Radiology Study observation (narrative) [facility] XR FOOT RT MIN 3VOrdered By: Radiologist Radiology on 06-25-2025 [facility] Work Phone: XR Tibia and Fibula - right 2 Viewson 06-25-2025 [place] [address] XRay Report Signed Patient: MARY LEAL MR#: [id number] : 1970 Acct:[id number] Age/Sex: 55 / F ADM Date: 06/25/25 Loc: [facility] Attending Dr: Sade Felix D.P.M. Ordering Physician: Sade Felix D.P.M. Date of Service: 06/25/25 Procedure(s): XR tibia fibula RT 2V Accession Number(s): [id number] cc: Sade Felix D.P.M.; Isatu GÓMEZ [place] [address] Patient Name: MARY LEAL MRN: [id number]:[id number] date: 1970 Sex: F Assigned Patient Location: [facility] Current Patient Location: [facility] Accession/Order Number: [id number] Exam Date: 06/25/2025 13:03 Report Date: 06/25/2025 13:05 At the request of: SADE FELIX DPM Procedure: XR tibia fibula RT 2V Right tibia and fibula plain film HISTORY: Chronic right foot and ankle pain. Ankle fusion. Continued pain COMPARISON: Plain film right foot 06/25/2025 ACUTE FINDINGS: None DEGENERATIVE CHANGE: Unremarkable SOFT TISSUE FINDINGS: Unremarkable JOINT EFFUSION: None POSTOP CHANGES: Subtalar and midfoot fusion hardware. No complication BONE MINERALIZATION: Adequate XR/XR tibia fibula RT 2V IMPRESSION: No hardware failure. No acute bony findings. Impression dictated by: Andres Bullard M.D. 06/25/2025 1:05 PM Dictation Location: [place] [address] Electronically authenticated by: [id number] Y Date: 06/25/2025 13:05 Dictated By: Andres Bullard D.O. Signed By: 06/25/25 1308 DD/ 1305 TD/TT: Public Policy Manager: [facility] Radiology, Radiologist, MD - 06/25/2025 [place] [address] XRay Report Signed Patient: MARY LEAL MR#: [id number] : 1970 Acct:[id number] Age/Sex: 55 / F ADM Date: 06/25/25 Loc: RAD Attending Dr: Sade Felix D.P.M. Ordering Physician: Sade Felix D.P.M. Date of Service: 06/25/25 Procedure(s): XR tibia fibula RT 2V Accession Number(s): [id number] cc: Sade Felix D.P.M.; Isatu GÓMEZ [place] [address] Patient Name: MARY LEAL MRN: [facility]:[id number] date: 1970 Sex: F Assigned Patient Location: [facility] Current Patient Location: [facility] Accession/Order Number: [id number] Exam Date: 06/25/2025 13:03 Report Date: 06/25/2025 13:05 At the request of: SADE FELIX DPDirk Procedure: XR tibia fibula RT 2V Right tibia and fibula plain film HISTORY: Chronic right foot and ankle pain. Ankle fusion. Continued pain COMPARISON: Plain film right foot 06/25/2025 ACUTE FINDINGS: None DEGENERATIVE CHANGE: Unremarkable SOFT TISSUE FINDINGS: Unremarkable JOINT EFFUSION: None POSTOP CHANGES: Subtalar and midfoot fusion hardware. No complication BONE MINERALIZATION: Adequate XR/XR tibia fibula RT 2V IMPRESSION: No hardware failure. No acute bony findings. Impression dictated by: Andres Bullard M.D. 06/25/2025 1:05 PM Dictation Location: [place] [address] Electronically authenticated by: [id number] Y Date: 06/25/2025 13:05 Dictated By: Andres Bullard D.O. Signed By: 06/25/25 1308 DD/ 04 TD/TT: Public Policy Manager: [facility] Radiology Study observation (narrative) [facility] XR Tibia and Fibula - right 2 ViewsOrdered By: Radiologist Radiology on 06-25-2025 [facility] [employer] Work Phone: PROTEIN ELECTROPHORESIS, URI NEon 05-14-2025 URINE PROTEIN ELECTROPHORESIS INTERP Unremarkable protein distribution, no monoclonal bands Normal [facility] Comment on above: Performed By: #### 3 5275-7, 6476-6, 8014-3, 33328-5, 5193-8 #### [facility] ([id number]) [address] [place] [address], [address] [place] [address] COPPER, Son 05-13-2025 COPPER 110 mcg/dL Normal 77-206 [facility] Comment on above: Result Comment: ADDITIONAL INFORMATION This test was developed and its performance characteristics determined by [facility] in a manner consistent with CLIA requirements. This test has not been cleared or approved by the U.S. Food and Drug Administration. Test Performed by: [facility] [address] [place] [address] [place]: Sindi Archibald Ph.D.; CLIA# [id number] Performed By: #### 3 5275-7, 6476-6, 8014-3, 14661-5, 5193-8 #### [facility] ([id number]) [address], [address] [place] [address] FOLATEon 05-13-2025 FOLIC ACID >^25.0 Normal >5.8 [facility] Comment on above: Performed By: #### F MOISES #### [facility] ([facility]) [address] [place] [address] VIR HEAVY METALS SCRN WITH DEMOG RAPHICSon 05-13-2025 ARSENIC, B <1 Normal <13 [facility] Comment on above: Result Comment: ADDITIONAL INFORMATION This test was developed and its performance characteristics determined by [facility] in a manner consistent with CLIA requirements. This test has not been cleared or approved by the U.S. Food and Drug Administration. Performed By: #### 3 5275-7, 6476-6, 8014-3, 91474-1, 5193-8 #### [facility] ([id number]) [address], [address] [place] [address] CADMIUM, B <0.2 Normal <5.0 [facility] Comment on above: Result Comment: ADDITIONAL INFORMATION This test was developed and its performance characteristics determined by [facility] in a manner consistent with CLIA requirements. This test has not been cleared or approved by the U.S. Food and Drug Administration. Performed By: #### 3 5275-7, 6476-6, 8014-3, 86052-0, 5193-8 #### [facility] ([id number]) [address], [address] [place] [address] HEAVY METAL VENOUS/CAPILLARY Venous Normal [facility] Comment on above: Performed By: #### 3 5275-7, 6476-6, 8014-3, 48902-5, 5193-8 #### [facility] ([id number]) [address], [address] [place] [address] LEAD, B <1.0 Normal <3.5 [facility] Comment on above: Result Comment: ADDITIONAL INFORMATION Testing performed by Triple Quadrupole Inductively Coupled Plasma-Mass Spectrometry (ICP-MS/MS). This test was developed and its performance characteristics determined by [facility] in a manner consistent with CLIA requirements. This test has not been cleared or approved by the U.S. Food and Drug Administration. Performed By: #### 3 5275-7, 6476-6, 8014-3, 49398-0, 5193-8 #### [facility] ([id number]) [address], [address] [place] [address] MERCURY, B <1 Normal <10 [facility] Comment on above: Result Comment: ADDITIONAL INFORMATION This test was developed and its performance characteristics determined by [facility] in a manner consistent with CLIA requirements. This test has not been cleared or approved by the U.S. Food and Drug Administration. Performed By: #### 3 5275-7, 6476-6, 8014-3, 00327-2, 5193-8 #### [facility] ([id number]) [address], [address] [place] [address] HEMOGLOBIN A1Con 05-13-2025 Glucose [Mass/Vol] 103 mg/dL Normal [facility] Comment on above: Performed By: #### H A1C #### [facility] ([facility]) [address] [place] [address] VIR HbA1c (Bld) [Mass fraction] 5.2 % Normal 4.4-5.6 [facility] Comment on above: Result Comment: ADA Guidelines Result HgbA1c Normal : less than 5.7 % Prediabetes : 5.7 % to 6.4 % Diabetes : > 6.4 % Use with caution in patients with abnormal hemoglobin variants as the half-life of red blood cells and in vivo glycation rates are affected. Performed By: #### H A1C #### [facility] ([facility]) [address] [place] [address] VIR PROTEIN ELECTROPHORESIS, SER UMon 05-13-2025 Albumin [Mass/Vol] 3.9 g/dL Normal 3.4-5.3 [facility] Comment on above: Performed By: #### S PE #### [facility] ([facility]) [address] [place] [address] VIR ALPHA 1 GLOBULIN 0.3 g/dL Normal 0.1-0.4 [facility] Comment on above: Performed By: #### S PE #### [facility] ([facility]) [address] [place] [address] VIR ALPHA 2 GLOBULIN 0.6 g/dL Normal 0.4-1.1 [facility] Comment on above: Performed By: #### S PE #### [facility] ([facility]) [address] [place] [address] VIR BETA GLOBULIN 0.8 g/dL Normal 0.5-1.2 [facility] Comment on above: Performed By: #### S PE #### [facility] ([facility]) [address] [place] [address] VIR GAMMA GLOBULIN 0.7 g/dL Normal 0.5-1.6 [facility] Comment on above: Performed By: #### S PE #### [facility] ([facility]) [address] [place] [address] VIR Protein [Mass/Vol] 6.2 g/dL Normal 6.0-8.0 [facility] Comment on above: Performed By: #### S PE #### [facility]) [address] [place] [address] VIR PROTEIN ELECTROPHORESIS INTERP Unremarkable protein distribution, no monoclonal bands Normal [facility] Comment on above: Performed By: #### S PE #### [facility]) [address] [place] [address] VIR THIAMIN (VITAMIN B1), WBon 0 05-13-2025 THIAMIN (VITAMIN B1), WB 114 nmol/L Normal 70-180 [facility] Comment on above: Result Comment: ADDITIONAL INFORMATION This test was developed and its performance characteristics determined by [facility] in a manner consistent with CLIA requirements. This test has not been cleared or approved by the U.S. Food and Drug Administration. Test Performed by: [facility] [address] [place] [address] [place]: Sindi Archibald Ph.D.; CLIA# [id number] Performed By: #### 3 5275-7, 6476-6, 8014-3, 45300-9, 5193-8 #### [facility] ([id number]) [address], [address] [place] [address] TSHon 05-13-2025 TSH 3.16 uIU/mL Normal 0.49-4.67 [facility] Comment on above: Performed By: #### T SH #### [facility]) [address] [place] [address] VIR VITAMIN B12on 05-13-2025 Cobalamin (Vitamin B12) [Mass/Vol] 214 pg/mL Normal 180-914 [facility] Comment on above: Performed By: #### B 12 #### [facility]) [address] [place] [address] VIR VITAMIN B6 PROFILE (PLP AND PA), Armando 05-13-2025 PYRIDOXAL 5-PHOSPHATE (PLP), P 10 mcg/L Normal 5-50 [facility] Comment on above: Result Comment: ADDITIONAL INFORMATION This test was developed and its performance characteristics determined by [facility] in a manner consistent with CLIA requirements. This test has not been cleared or approved by the U.S. Food and Drug Administration. Performed By: #### 3 5275-7, 6476-6, 8014-3, 85164-0, 5193-8 #### [facility] ([id number]) [address] [place] [address], [address] [place] [address] PYRIDOXIC ACID (PA), P 6 mcg/L Normal 3-30 [facility] Comment on above: Result Comment: ADDITIONAL INFORMATION This test was developed and its performance characteristics determined by [facility] in a manner consistent with CLIA requirements. This test has not been cleared or approved by the U.S. Food and Drug Administration. Test Performed by: [facility] [address] [place] [address] [place]: Sindi Archibald Ph.D.; CLIA# [id number] Performed By: #### 3 5275-7, 6476-6, 8014-3, 49829-0, 5193-8 #### [facility] ([id number]) [address] [facility], [address] [place] [address] Magnetic resonance imaging r eportOrdered By: Eitan Weber on 02-25-2025 Study report [facility] Main [address] [address] MRI Report Signed Patient: Mary Leal MR#: [id number] : 1970 Acct:[id number] Age/Sex: 54 / F ADM Date: 5 Loc: [facility] Room: Type: [facility] CLI Attending Dr: Monica IBARRA Copies to: FRED Schafer~ Ordering Provider: FRED Schafer Date of Service: 02/25/25 MR/MR thoracic spine wo con: THORACIC RADICULOPATHY ([id number]) XR/XR pre/post mri xray: THOARCIC RADICULOPATHY MRI [...] Eitan Weber M.D.02/25/2025 10:14 AM Dictation Location: [place] [address] Transcribed By: [facility] 02/25/25 1014 Dictated By: Eitan Weber MD 02/25/25 1008 Signed By: 02/25/25 1014 [facility] Work Phone: XR pre/post mri xrayon 02-25 XR pre/post mri xray [facility] [place] [address] MRI Report Signed Patient: Mary Leal MR#: [id number] : 1970 Acct:[id number] Age/Sex: 54 / F ADM Date: 02/25/25 Loc: [facility] Room: Type: [facility] Attending Dr: Monica IBARRA Copies to: FRED Schafer Ordering Provider: FRED Schafer Date of Service: 02/25/25 MR/MR thoracic spine wo con: THORACIC RADICULOPATHY ([id number]) XR/XR pre/post mri xray: THOARCIC RADICULOPATHY MRI [...] Eitan Weber M.D.02/25/2025 10:14 AM Dictation Location: [place] [address] Transcribed By: [facility] 02/25/25 1014 Dictated By: Eitan Weber MD 02/25/25 1008 Signed By: 02/25/25 1014 Normal [facility] Alanine aminotransferase [En zymatic activity/volume] in Serum or PlasmaOrdered By: Everett Valdez on 02-17-2025 ALT [Catalytic activity/Vol] Alanine aminotransferase [Enzymatic activity/volume] in Serum or Plasma [address] [place] [address] ALT [Catalytic activity/Vol] 38 U/L Normal [address] Comment on above: Performed By: #### C BC #### [address] [address] [place] Albumin [Mass/volume] in Ser um or Plasma by Bromocresol green (BCG) dye binding methoOrdered By: Everett Valdez on 02-17-2025 Albumin BCG dye [Mass/Vol] Albumin [Mass/volume] in Serum or Plasma by Bromocresol green (BCG) dye binding metho 3.5-5.7 [facility] Albumin BCG dye [Mass/Vol] 4.2 g/dL 3.5-5.7 [facility] Alkaline phosphatase [Enzyma tic activity/volume] in Serum or PlasmaOrdered By: Everett Valdez on 02-17-2025 ALP [Catalytic activity/Vol] Alkaline phosphatase [Enzymatic activity/volume] in Serum or Plasma 34-104 [facility] ALP [Catalytic activity/Vol] 96 U/L Normal 34-104 [facility] Comment on above: Performed By: #### C BC #### [facility] [address] [place] [address] Aspartate aminotransferase [ Enzymatic activity/volume] in Serum or PlasmaOrdered By: Everett Valdez on 02-17-2025 AST [Catalytic activity/Vol] Aspartate aminotransferase [Enzymatic activity/volume] in Serum or Plasma 13-39 [facility] AST [Catalytic activity/Vol] 34 U/L Normal 13-39 [facility] Comment on above: Performed By: #### C BC #### [address] Basophils Auto (Bld) [#/Vol] Ordered By: Everett Valdez on 02-17-2025 Basophils (Bld) [#/Vol] Automated basophil count 0.0-0.2 [facility] Basophils [#/volume] in Bloo d by Automated countOrdered By: Everett Valdez on 02-17-2025 Basophils (Bld) [#/Vol] 0.0 10*3/uL Normal 0.0-0.2 [facility] Comment on above: Performed By: #### C BC #### [facility] [address] [place] [address] [place] Basophils/100 WBC Auto (Bld) Ordered By: Everett Valdez on 02-17-2025 Basophils/100 WBC (Bld) Automated basophil % . [facility] Basophils/100 leukocytes in Blood by Automated countOrdered By: Everett Valdez on 02-17-2025 Basophils/100 WBC (Bld) 0.7 % Normal . [facility] Comment on above: Performed By: #### C BC #### [facility] [address] Bilirubin.total [Mass/volume ] in Serum or PlasmaOrdered By: Everett Valdez on 02-17-2025 Bilirubin [Mass/Vol] Bilirubin.total [Mass/volume] in Serum or Plasma 0.3-1.0 [facility] Bilirubin [Mass/Vol] 0.3 mg/dL Normal 0.3-1.0 [facility] Comment on above: Performed By: #### C BC #### [facility] [address] C reactive protein [Mass/vol ume] in Serum or PlasmaOrdered By: Everett Valdez on 02-17-2025 CRP [Mass/Vol] C reactive protein [Mass/volume] in Serum or Plasma 0.0-0.5 [facility] CRP [Mass/Vol] < 0.5 mg/dL 0.0-0.5 [facility] C-Reactive Proteinon 025 CRP [Mass/Vol] mg/L Normal 0.0-0.5 [facility] Comment on above: Result Comment: PERF ORMED BY: [address] [place] [address] PATHOLOGIST [employer] PAZ GUILLERMO M.D. Performed By: #### C BC #### [facility] [address] [place] [address] [place] Calcium [Mass/volume] in Ser um or PlasmaOrdered By: Everett Valdez on 02-17-2025 Calcium [Mass/Vol] Calcium [Mass/volume ] in Serum or Plasma 8.6-10.3 [facility] Calcium [Mass/Vol] 8.9 mg/dL Normal 8.6-10.3 [facility] Comment on above: Performed By: #### C BC #### [address] Carbon dioxide, total [Moles /volume] in Serum or PlasmaOrdered By: Everett Valdez on 02-17-2025 CO2 [Moles/Vol] Carbon dioxide, tota l [Moles/volume] in Serum or Plasma 21.0-31.0 [facility] CO2 [Moles/Vol] 30.2 mmol/L Normal 21.0-31.0 [facility] Comment on above: Performed By: #### C BC #### [address] Chloride [Moles/volume] in S jay or PlasmaOrdered By: Everett Valdez on 02-17-2025 Chloride [Moles/Vol] Chloride [Moles/volume] in Serum or Plasma 98-107 [facility] Chloride [Moles/Vol] 104 mmol/L Normal 98-107 [facility] Comment on above: Performed By: #### C BC #### [address] Complete Blood Count Auto Di ffon 02-17-2025 Mean Corpuscular HGB Conc 34.0 g/dL Normal 32.0-35.0 [facility] Comment on above: Performed By: #### C BC #### [address] NRBC% 0.1 /100{WBC} Normal 0-0.5 [facility] Comment on above: Performed By: #### C BC #### [address] Comprehensive Metabolic Pane boyd 02-17-2025 Albumin [Mass/Vol] 4.2 g/dL Normal 3.5-5.7 [facility] Comment on above: Performed By: #### C BC #### [place] [address] [place] GFR/1.73 sq M.predicted MDRD (S/P/Bld) [Vol rate/Area] mL/min/{1.73_m2} Normal [facility] Comment on above: Performed By: #### C BC #### [facility] [address] [place] [address] Creatine kinase [Enzymatic a ctivity/volume] in Serum or PlasmaOrdered By: Everett Valdez on 02-17-2025 CK [Catalytic activity/Vol] Creatine kinase [Enzymatic activity/volume] in Serum or Plasma High 30-223 [facility] CK [Catalytic activity/Vol] 539 U/L High 30-223 [facility] Comment on above: Result Comment: PERF ORMED BY: [place] [address] PATHOLOGIST [employer]SM[employer] PAZ GUILLERMO M.D. Performed By: #### C BC #### [address] Creatinine [Mass/volume] in Serum or PlasmaOrdered By: Everett Valdez on 02-17-2025 Creatinine [Mass/Vol] Creatinine [Mass/volume] in Serum or Plasma 0.60-1.20 [facility] Creatinine [Mass/Vol] 0.61 mg/dL Normal 0.60-1.20 [facility] Comment on above: Performed By: #### C BC #### [address] Eosinophils Auto (Bld) [#/Vo l]Ordered By: Everett Valdez on 02-17-2025 Eosinophils (Bld) [#/Vol] Automated eosinophil count 0.0-0.45 [facility] Eosinophils [#/volume] in Bl ood by Automated countOrdered By: Everett Valdez on 02-17-2025 Eosinophils (Bld) [#/Vol] 0.1 10*3/uL Normal 0.0-0.45 [facility] Comment on above: Performed By: #### C BC #### [place] [address] [place] Eosinophils/100 WBC Auto (Bl d)Ordered By: Everett Valdez on 02-17-2025 Eosinophils/100 WBC (Bld) Automated eosinophil % . [facility] Eosinophils/100 leukocytes i n Blood by Automated countOrdered By: Everett Valdez on 02-17-2025 Eosinophils/100 WBC (Bld) 1.9 % Normal . [facility] Comment on above: Performed By: #### C BC #### [address] Erythrocyte Sedimentation Ra lian 02-17-2025 ESR (Bld) [Velocity] 4 mm/h Normal 0-29 [facility] Comment on above: Result Comment: PERF ORMED BY: [place] [address] PATHOLOGIST [employer] PAZ GUILLERMO M.D. Performed By: #### C BC #### [address] Erythrocyte distribution wid th Auto (RBC) [Ratio]Ordered By: Everett Valdez on 02-17-2025 Erythrocyte distribution width (RBC) [Ratio] Erythrocyte distribution width [Ratio] by Automated count 11.9-15.3 [facility] Erythrocyte distribution wid th [Ratio] by Automated countOrdered By: Everett Valdez on 02-17-2025 Erythrocyte distribution width (RBC) [Ratio] 13.6 % Normal 11.9-15.3 [facility] Comment on above: Performed By: #### C BC #### [address] Erythrocyte sedimentation ra te by Photometric methodOrdered By: Everett Valdez on 02-17-2025 ESR Photometric method (Bld) [Velocity] Erythrocyte sedimentation rate by Photometric method 0-29 [facility] ESR Photometric method (Bld) [Velocity] 4 mm/hr 0-29 [facility] Erythrocytes [#/volume] in B lood by Automated countOrdered By: Everett Valdez on 02-17-2025 RBC (Bld) [#/Vol] 4.93 10*6/uL Normal 3.60-5.00 [facility] Comment on above: Performed By: #### C BC #### [address] Globulin Calc (S) [Mass/Vol] Ordered By: Everett Valdez on 02-17-2025 Globulin (S) [Mass/Vol] Serum globulin measurement by calculation (mass/volume) [facility] Glucose [Mass/volume] in Ser um or PlasmaOrdered By: Everett Valdez on 02-17-2025 Glucose [Mass/Vol] Glucose [Mass/volume ] in Serum or Plasma 70-100 [facility] Comment on above: ADA recommended refe rence rangeRandom Glucose Reference Range is dependent on time and content of last meal. Glucose of more than 200 mg/dL in a nonstressed, ambulatory subject supports the diagnosis of Diabetes Mellitus. Glucose [Mass/Vol] 94 mg/dL Normal 70-100 [facility] Comment on above: ADA recommended refe rence rangeRandom Glucose Reference Range is dependent on time and content of last meal. Glucose of more than 200 mg/dL in a nonstressed, ambulatory subject supports the diagnosis of Diabetes Mellitus. Result Comment: [place] om Glucose Reference Range is dependent on time and content of last meal. Glucose of more than 200 mg/dL in a nonstressed, ambulatory subject supports the diagnosis of Diabetes Mellitus. ADA recommended reference range Performed By: #### C BC #### [facility] [address] Hematocrit Auto (Bld) [Volum e fraction]Ordered By: Everett Valdez on 02-17-2025 Hematocrit (Bld) [Volume fraction] Hematocrit [Volume Fraction] of Blood by Automated count 34.0-46.4 [facility] Hematocrit [Volume Fraction] of Blood by Automated countOrdered By: Everett Valdez on 02-17-2025 Hematocrit (Bld) [Volume fraction] 41.0 % Normal 34.0-46.4 [facility] Comment on above: Performed By: #### C BC #### [facility] [address] [place] [address] Hemoglobin [Mass/volume] in BloodOrdered By: Everett Valdez on 02-17-2025 Hemoglobin (Bld) [Mass/Vol] Hemoglobin [Mass/volume] in Blood 11.8-15.4 [facility] Hemoglobin (Bld) [Mass/Vol] 14.0 g/dL Normal 11.8-15.4 [facility] Comment on above: Performed By: #### C BC #### [facility] [address] LDH Lactate Dehydrogenaseon 02-17-2025 LDH Lactate Dehydrogenase 219 U/L Normal 140-271 [facility] Comment on above: Performed By: #### C BC #### [facility] [address] [place] [address] [place] Lactate dehydrogenase [Enzym atic activity/volume] in Serum or Plasma by Lactate to pyOrdered By: Everett Valdez on 02-17-2025 LDH Lactate to pyruvate reaction [Catalytic activity/Vol] Lactate dehydrogenase [Enzymatic activity/volume] in Serum or Plasma by Lactate to py 140-271 [facility] LDH Lactate to pyruvate reaction [Catalytic activity/Vol] 219 U/L 140-271 [facility] Leukocytes [#/volume] correc herbert for nucleated erythrocytes in Blood by Automated counOrdered By: Everett Valdez on 02-17-2025 WBC corrected for nucl RBC Auto (Bld) [#/Vol] Leukocytes [#/volume] corrected for nucleated erythrocytes in Blood by Automated coun 3.8-11.6 [facility] WBC corrected for nucl RBC Auto (Bld) [#/Vol] 4.9 10*3/uL 3.8-11.6 [facility] Leukocytes [#/volume] in Blo od by Automated countOrdered By: Everett Valdez on 02-17-2025 WBC (Bld) [#/Vol] 4.9 10*3/uL Normal 3.8-11.6 [facility] Comment on above: Performed By: #### C BC #### [facility] [address] [place] [address] [place] Lymphocytes Auto (Bld) [#/Vo l]Ordered By: Everett Valdez on 02-17-2025 Lymphocytes (Bld) [#/Vol] Lymphocytes [#/volume] in Blood by Automated count 1.00-4.8 [facility] Lymphocytes [#/volume] in Bl ood by Automated countOrdered By: Everett Valdez on 02-17-2025 Lymphocytes (Bld) [#/Vol] 1.4 10*3/uL Normal 1.00-4.8 [facility] Comment on above: Performed By: #### C BC #### [facility] [address] [place] [address] Lymphocytes/100 WBC Auto (Bl d)Ordered By: Everett Valdez on 02-17-2025 Lymphocytes/100 WBC (Bld) Lymphocytes/100 leukocytes in Blood by Automated count . [facility] Lymphocytes/100 leukocytes i n Blood by Automated countOrdered By: Everett Valdez on 02-17-2025 Lymphocytes/100 WBC (Bld) 29.2 % Normal . [facility] Comment on above: Performed By: #### C BC #### [facility] [address] [place] [address] MCH Auto (RBC) [Entitic mass ]Ordered By: Everett Valdez on 02-17-2025 MCH (RBC) [Entitic mass] MCH [Entitic mass] by Automated count 24.7-34.3 [facility] MCH [Entitic mass] by Automa herbert countOrdered By: Everett Valdez on 02-17-2025 MCH (RBC) [Entitic mass] 28.3 pg Normal 24.7-34.3 [facility] Comment on above: Performed By: #### C BC #### [address] MCHC Auto (RBC) [Mass/Vol]Or dered By: Everett Valdez on 02-17-2025 MCHC (RBC) [Mass/Vol] MCHC [Mass/volume] by Automated count 32.0-35.0 [facility] MCHC (RBC) [Mass/Vol] 34.0 g/dL 32.0-35.0 [facility] MCV Auto (RBC) [Entitic vol] Ordered By: Everett Valdez on 02-17-2025 MCV (RBC) [Entitic vol] MCV [Entitic volume] by Automated count 80-100 [facility] MCV [Entitic volume] by Auto mated countOrdered By: Everett Valdez on 02-17-2025 MCV (RBC) [Entitic vol] 83.3 fL Normal 80-100 [facility] Comment on above: Performed By: #### C BC #### [address] Monocytes Auto (Bld) [#/Vol] Ordered By: Everett Valdez on 02-17-2025 Monocytes (Bld) [#/Vol] Automated blood monocyte count 0.0-0.8 [facility] Monocytes [#/volume] in Bloo d by Automated countOrdered By: Everett Valdez on 02-17-2025 Monocytes (Bld) [#/Vol] 0.2 10*3/uL Normal 0.0-0.8 [facility] Comment on above: Performed By: #### C BC #### [address] Monocytes/100 WBC Auto (Bld) Ordered By: Everett Valdez on 02-17-2025 Monocytes/100 WBC (Bld) Automated monocyte % . [facility] Monocytes/100 leukocytes in Blood by Automated countOrdered By: Everett Valdez on 02-17-2025 Monocytes/100 WBC (Bld) 5.0 % Normal . [facility] Comment on above: Performed By: #### C BC #### [address] Neutrophils Auto (Bld) [#/Vo l]Ordered By: Everett Valdez on 02-17-2025 Neutrophils (Bld) [#/Vol] Neutrophils [#/volume] in Blood by Automated count 1.8-7.7 [facility] Neutrophils [#/volume] in Bl ood by Automated countOrdered By: Everett Valdez on 02-17-2025 Neutrophils (Bld) [#/Vol] 3.1 10*3/uL Normal 1.8-7.7 [facility] Comment on above: Performed By: #### C BC #### [address] Neutrophils/100 WBC Auto (Bl d)Ordered By: Everett Valdez on 02-17-2025 Neutrophils/100 WBC (Bld) Automated neutrophil % . [facility] Neutrophils/100 leukocytes i n Blood by Automated countOrdered By: Everett Terryrow on 02-17-2025 Neutrophils/100 WBC (Bld) 63.2 % Normal . [facility] Comment on above: Performed By: #### C BC #### [facility] [address] [place] [address] No Panel InformationOrdered By: Everett Terryrow on 02-17-2025 Estimated GFR (CKD-EPI) > 60.0 mL/Min [facility] Creatinine Clearance (Chem N/A [facility] Nucleated erythrocytes [Pres ence] in Blood by Automated countOrdered By: Everett Valdez on 02-17-2025 Nucleated RBC Auto Ql (Bld) Nucleated erythrocytes [Presence] in Blood by Automated count 0-0.5 [facility] Nucleated RBC Auto Ql (Bld) 0.1 /100{WBC} 0-0.5 [facility] Platelet mean volume Auto (B ld) [Entitic vol]Ordered By: Everett Valdez on 02-17-2025 Platelet mean volume (Bld) [Entitic vol] Platelet mean volume [Entitic volume] in Blood by Automated count 6.3-10.7 [facility] Platelet mean volume [Entiti c volume] in Blood by Automated countOrdered By: Everett Valdez on 02-17-2025 Platelet mean volume (Bld) [Entitic vol] 7.6 fL Normal 6.3-10.7 [facility] Comment on above: Performed By: #### C BC #### [facility] [address] [place] [address] Platelets Auto (Bld) [#/Vol] Ordered By: Everett Valdez on 02-17-2025 Platelets (Bld) [#/Vol] Platelets [#/volume] in Blood by Automated count 150-450 [facility] Platelets [#/volume] in Bloo d by Automated countOrdered By: Everett Valdez on 02-17-2025 Platelets (Bld) [#/Vol] 312 10*3/uL Normal 150-450 [facility] Comment on above: Performed By: #### C BC #### [address] Potassium [Moles/volume] in Serum or PlasmaOrdered By: Everett Valdez on 02-17-2025 Potassium [Moles/Vol] Potassium [Moles/volume] in Serum or Plasma 3.5-5.1 [facility] Potassium [Moles/Vol] 4.6 mmol/L Normal 3.5-5.1 [facility] Comment on above: Performed By: #### C BC #### [address] Protein [Mass/volume] in Ser um or PlasmaOrdered By: Everett Valdez on 02-17-2025 Protein [Mass/Vol] Protein [Mass/volume ] in Serum or Plasma Low 6.4-8.9 [facility] Protein [Mass/Vol] 6.3 g/dL Low 6.4-8.9 [facility] Comment on above: Performed By: #### C BC #### [address] RBC Auto (Bld) [#/Vol]Ordere d By: Everett Valdez on 02-17-2025 RBC (Bld) [#/Vol] Erythrocytes [#/volume] in Blood by Automated count 3.60-5.00 [facility] Serum aldolase measurementOr dered By: Everett Valdez on 02-17-2025 Aldolase 11.4 U/L High 3.3-10.3 [facility] Comment on above: Performed at: [facility] [place] [id number] Director: Erick Neville PhD, Phone: [phone] Result Comment: Perf ormed at: CB - [facility] [address] [id number] [place]: Erick Neville PhD, Phone: [phone] PERFORMED BY: [place] [address] PATHOLOGIST [employer] PAZ GUILLERMO M.D. Performed By: #### C BC #### [address] Serum globulin measurement b y calculation (mass/volume)Ordered By: Everett Valdez on 02-17-2025 Globulin (S) [Mass/Vol] 2.1 g/dL [facility] Comment on above: Performed By: #### C BC #### [facility] [address] Serum or plasma albumin/glob ulin mass ratioOrdered By: Everett Valdez on 02-17-2025 Albumin/Globulin [Mass ratio] Serum or plasma albumin/globulin mass ratio [facility] Albumin/Globulin [Mass ratio] 2.0 {ratio} Normal [facility] Comment on above: Performed By: #### C BC #### [facility] [address] [place] [address] Serum or plasma anion gap de terminationOrdered By: Everett Valdez on 02-17-2025 Anion gap [Moles/Vol] Serum or plasma an ion gap determination 6.0-15.0 [facility] Anion gap [Moles/Vol] 9.4 mmol/L Normal 6.0-15.0 [facility] Comment on above: Performed By: #### C BC #### [facility] [address] [place] [address] Serum or plasma myoglobin me asurement (mass/volume)Ordered By: Everett Valdez on 02-17-2025 Myoglobin [Mass/Vol] Serum or plasma myoglobin measurement (mass/volume) [address] Comment on above: Performed at: [facility] [address] [id number] Director: Erick Neville PhD, Phone: [phone] Myoglobin [Mass/Vol] 187 ng/mL [address] Comment on above: Performed at: [facility] [address] [id number] Director: Erick Neville PhD, Phone: [phone] Result Comment: Perf ormed at: [facility] [address] [id number] [place]: Erick Neville PhD, Phone: [phone] PERFORMED BY: [place] [address] PATHOLOGIST [employer]RA[employer]SMAN PZA GUILLERMO M.D. Performed By: #### C BC #### [address] Sodium [Moles/volume] in Ser um or PlasmaOrdered By: Everett Valdez on 02-17-2025 Sodium [Moles/Vol] Sodium [Moles/volume ] in Serum or Plasma 136-145 [facility] Sodium [Moles/Vol] 139 mmol/L Normal 136-145 [facility] Comment on above: Performed By: #### C BC #### [address] Urea nitrogen [Mass/volume] in Serum or PlasmaOrdered By: Everett Valdez on 02-17-2025 Urea nitrogen [Mass/Vol] Urea nitrogen [Mass/volume] in Serum or Plasma 05-30 [facility] Urea nitrogen [Mass/Vol] 19 mg/dL Normal 05-30 [facility] Comment on above: Performed By: #### C BC #### [address] WBC Auto (Bld) [#/Vol]Ordere d By: Everett Valdez on 02-17-2025 WBC (Bld) [#/Vol] Leukocytes [#/volume ] in Blood by Automated count 3.8-11.6 [facility] 36on 01-24-2025 36 Attempted to call patient to reschedule canceled [facility] follow up appointment. Normal [facility] XR FOOT RT MIN 3Von 01-03-20 25 [facility] [address] [place] [address] XRay Report Signed Patient: MARY LEAL MR#: [id number] : 1970 Acct:[id number] Age/Sex: 54 / F ADM Date: 01/03/25 Loc: EC Attending Dr: Sade Felix D.P.M. Ordering Physician: Sade Felix D.P.M. Date of Service: 01/03/25 Procedure(s): XR foot RT min 3V Accession Number(s): [id number] cc: Sade Felix D.P.M.; Isatu GÓMEZ [facility] [place] [id number] Patient Name: MARY LEAL MRN: [facility]:[id number] date: 1970 Sex: F Assigned Patient Location: Current Patient Location: Accession/Order Number: [id number] Exam Date: 01/03/2025 12:17 Report Date: 01/03/2025 [...] Makenna Pathak M.D.01/03/2025 12:21 PM Dictation Location: [place] [address] Electronically authenticated by: [id number] Y Date: 01/03/2025 12:21 Dictated By: Makenna Pathak M.D. Signed By: 01/03/25 1223 DD/ 1221 TD/TT: Public Policy Manager: [facility] Radiology, Radiologist, MD - 01/03/2025 [place] [address] XRay Report Signed Patient: MARY LEAL MR#: [id number] : 1970 Acct:[id number] Age/Sex: 54 / F ADM Date: 01/03/25 Loc: EC Attending Dr: Sade Felix D.P.M. Ordering Physician: Sade Felix D.P.M. Date of Service: 01/03/25 Procedure(s): XR foot RT min 3V Accession Number(s): [id number] cc: Sade Felix D.P.M.; Isatu GÓMEZ [address] [address] Patient Name: MARY LEAL MRN: [facility]:[id number] date: 1970 Sex: F Assigned Patient Location: Current Patient Location: Accession/Order Number: [id number] Exam Date: 01/03/2025 12:17 Report Date: 01/03/2025 [...] Makenna Pathak M.D.01/03/2025 12:21 PM Dictation Location: [place] [address] Electronically authenticated by: [id number] Y Date: 01/03/2025 12:21 Dictated By: Makenna Pathak M.D. Signed By: 01/03/25 1223 DD/ 1221 TD/TT: Public Policy Manager: [facility] Radiology Study observation (narrative) [facility] XR FOOT RT MIN 3VOrdered By: Radiologist Radiology on 01-03-2025 [facility] Work Phone: 24 hour urine albumin/total protein ratio by electrophoresisOrdered By: Everett Valdez on 12-16-2024 Albumin Elph (24H U) [Mass fraction] Albumin/Protein.total in 24 hour Urine by Electrophoresis . [facility] 24 hour urine gamma globulin /total protein ratio by electrophoresisOrdered By: Everett Valdez on 12-16-2024 Gamma globulin Elph (24H U) [Mass fraction] Gamma globulin/Protein.total in 24 hour Urine by Electrophoresis . [facility] 24 hour urine protein monocl onal/total protein by electrophoresisOrdered By: Everett Valdez on 12-16-2024 Protein.monoclonal Elph (24H U) [Mass fraction] Protein.monoclonal/Pro tein.total in 24 hour Urine by Electrophoresis Not Observed [facility] CHUYITA Antinuclear Antibodieson 12-16-2024 Antinuclear Abs, IFA Negative Normal . [facility] Comment on above: Result Comment: Nega tive <1:80 Borderline 1:80 Positive >1:80 ICAP nomenclature: AC-0 For more information about Hep-2 cell patterns use ANApatterns.org, the official website for the International Consensus on Antinuclear Antibody (CHUYITA) Patterns (ICAP). Performed at: [facility] [place] [id number] [place]: Erick Neville PhD, Phone: [phone] Performed By: #### P P #### [facility] [address] [place] [address] [place] #### LUPANTCOAG #### [facility] , Alanine aminotransferase [En zymatic activity/volume] in Serum or PlasmaOrdered By: Everett Valdez on 12-16-2024 ALT [Catalytic activity/Vol] Alanine aminotransferase [Enzymatic activity/volume] in Serum or Plasma 752 [facility] Albumin [Mass/volume] in Ser um or Plasma by Bromocresol green (BCG) dye binding methoOrdered By: Everett Valdez on 12-16-2024 Albumin BCG dye [Mass/Vol] Albumin [Mass/volume] in Serum or Plasma by Bromocresol green (BCG) dye binding metho 3.5-5.7 [facility] Alkaline phosphatase [Enzyma tic activity/volume] in Serum or PlasmaOrdered By: Everett Valdez on 12-16-2024 ALP [Catalytic activity/Vol] Alkaline phosphatase [Enzymatic activity/volume] in Serum or Plasma 34-104 [facility] Antithyroglobulin Abon 12-16 Antithyroglobulin Ab <1.0 Normal 0.0-0.9 [facility] Comment on above: Result Comment: Thyr oglobulin Antibody measured by [employer] It should be noted that the presence of thyroglobulin antibodies may not be pathogenic nor diagnostic, especially at very low levels. The assay tire man has found that four percent of individuals without evidence of thyroid disease or autoimmunity will have positive TgAb levels up to 4 IU/mL. Performed at: [facility] [employer] [id number] [place]: Erick Neville PhD, Phone: [phone] Performed By: #### P P #### [address] #### LUPANTCOAG #### [facility] , Appearance of UrineOrdered B y: Everett Valdez on 12-16-2024 Appearance (U) Urine appearance Clear [facility] Aspartate aminotransferase [ Enzymatic activity/volume] in Serum or PlasmaOrdered By: Everett Valdez on 12-16-2024 AST [Catalytic activity/Vol] Aspartate aminotransferase [Enzymatic activity/volume] in Serum or Plasma 13-39 [facility] Bacteria [Presence] in Urine by AutomatedOrdered By: Everett Valdez on 12-16-2024 Bacteria Auto Ql (U) Bacteria [Presence] in Urine by Automated None Seen [facility] Basophils Auto (Bld) [#/Vol] Ordered By: Everett Valdez on 12-16-2024 Basophils (Bld) [#/Vol] Automated basophil count 0.0-0.2 [facility] Basophils/100 WBC Auto (Bld) Ordered By: Everett Valdez on 12-16-2024 Basophils/100 WBC (Bld) Automated basophil % . [facility] Bilirubin Test strip Ql (U)O rdered By: Everett Valdez on 12-16-2024 Bilirubin Ql (U) Bilirubin.total [Presence] in Urine by Test strip Negative [facility] Bilirubin.total [Mass/volume ] in Serum or PlasmaOrdered By: Everett Valdez on 12-16-2024 Bilirubin [Mass/Vol] Bilirubin.total [Mass/volume] in Serum or Plasma 0.3-1.0 [facility] C reactive protein [Mass/vol ume] in Serum or PlasmaOrdered By: Everett Valdez on 12-16-2024 CRP [Mass/Vol] C reactive protein [Mass/volume] in Serum or Plasma 0.0-0.5 [facility] C-Reactive Proteinon 025 CRP [Mass/Vol] mg/L Normal 0.0-0.5 [facility] Comment on above: Performed By: #### P P #### [facility] [address] [place] [address] [place] #### LUPANTCOAG #### [facility] , Calcium [Mass/volume] in Ser um or PlasmaOrdered By: Everett Valdez on 12-16-2024 Calcium [Mass/Vol] Calcium [Mass/volume ] in Serum or Plasma 8.6-10.3 [facility] Carbon dioxide, total [Moles /volume] in Serum or PlasmaOrdered By: Everett Valdez on 12-16-2024 CO2 [Moles/Vol] Carbon dioxide, tota l [Moles/volume] in Serum or Plasma 21.0-31.0 [facility] Chloride [Moles/volume] in S jay or PlasmaOrdered By: Everett Valdez on 12-16-2024 Chloride [Moles/Vol] Chloride [Moles/volume] in Serum or Plasma 98-107 [facility] Chromatin Antibodyon 025 Chromatin Antibody <0.2 Normal 0.0-0.9 The Count includes the [facility] Comment on above: Result Comment: Perf ormed at: CB - [facility] [address] [id number] [place]: Erick Neville PhD, Phone: [phone] PERFORMED BY: [place] [address] PATHOLOGIST [employer] CRAFTSMAN PAZ GUILLERMO M.D. Performed By: #### P P #### [place] [address] [place] #### LUPANTCOAG #### [facility] , Coagulation Profileon 2024 aPTT Coag (Bld) [Time] 28.7 s Normal 25.1-36.5 [facility] Comment on above: Result Comment: A he matocrit value greater than 55% may lead to inaccurate results in coagulation testing. Patients having hematocrit values >55% require a special collection tube for coagulation studies. Please contact the laboratory at [phone] for redraw instructions. PERFORMED BY: [place] [address] PATHOLOGIST [employer]ODUCTION [employer] CRAFTSMAN PAZ GUILLERMO M.D. Performed By: #### P P #### [address] #### LUPANTCOAG #### [facility] , INR Coag (PPP) [Relative time] 0.9 {INR} Normal [facility] Comment on above: [...] 4.5 Performed By: #### P P #### [place] [address] [place] #### LUPANTCOAG #### [facility] , PT Coag (PPP) [Time] 10.5 s Normal 9.0-12.9 [facility] Comment on above: Result Comment: A he matocrit value greater than 55% may lead to inaccurate results in coagulation testing. Patients having hematocrit values >55% require a special collection tube for coagulation studies. Please contact the laboratory at [phone] for redraw instructions. Performed By: #### P P #### [place] [address] [place] #### LUPANTCOAG #### [facility] , Color Auto (U)Ordered By: Dori Valdez on 12-16-2024 Color (U) Color of Urine by Auto Yellow [facility] Complement C3on 12-16-2024 Complement C3 133 mg/dL Normal 82-167 [facility] Comment on above: Result Comment: Perf ormed at: [facility] [id number] [place]: Erick Neville PhD, Phone: [phone] Performed By: #### P P #### [place] [address] [place] #### LUPANTCOAG #### [facility] , Complement C4on 12-16-2024 Complement C4 26 mg/dL Normal 12-38 [facility] Comment on above: Performed By: #### P P #### [place] [address] [place] #### LUPANTCOAG #### [facility] , Complement Total (CH50)on Complement Total (CH50) >60 Normal >41 [facility] Comment on above: [...] determine out of range values. Performed at: [address] [id number] [place]: Erick Neville PhD, Phone: [phone] PERFORMED BY: [place] [address] PATHOLOGIST PRODUCTION [employer] CRAFTSMAN PAZ GUILLERMO M.D. Performed By: #### P P #### [place] [address] [place] #### LUPANTCOAG #### [facility] , Complete Blood Count Auto Di ffon 12-16-2024 Basophils (Bld) [#/Vol] 0.0 10*3/uL Normal 0.0-0.2 [facility] Comment on above: Performed By: #### P P #### [place] [address] [place] #### LUPANTCOAG #### [facility] , Basophils/100 WBC (Bld) 0.7 % Normal . [facility] Comment on above: Performed By: #### P P #### [place] [address] [place] #### LUPANTCOAG #### [facility] , Eosinophils (Bld) [#/Vol] 0.1 10*3/uL Normal 0.0-0.45 [facility] Comment on above: Performed By: #### P P #### [place] [address] [place] #### LUPANTCOAG #### [facility] , Eosinophils/100 WBC (Bld) 2.3 % Normal . [facility] Comment on above: Performed By: #### P P #### [place] [address] [place] #### LUPANTCOAG #### [facility] , Erythrocyte distribution width (RBC) [Ratio] 12.8 % Normal 11.9-15.3 [facility] Comment on above: Performed By: #### P P #### [place] [address] [place] #### LUPANTCOAG #### [facility] , Hematocrit (Bld) [Volume fraction] 39.6 % Normal 34.0-46.4 [facility] Comment on above: Performed By: #### P P #### [place] [address] [place] #### LUPANTCOAG #### [facility] , Hemoglobin (Bld) [Mass/Vol] 13.3 g/dL Normal 11.8-15.4 [facility] Comment on above: Performed By: #### P P #### [place] [address] [place] #### LUPANTCOAG #### [facility] , Lymphocytes (Bld) [#/Vol] 1.8 10*3/uL Normal 1.00-4.8 [facility] Comment on above: Performed By: #### P P #### [place] [address] [place] #### LUPANTCOAG #### [facility] , Lymphocytes/100 WBC (Bld) 32.0 % Normal . [facility] Comment on above: Performed By: #### P P #### [address] #### LUPANTCOAG #### [facility] , MCH (RBC) [Entitic mass] 28.4 pg Normal 24.7-34.3 [facility] Comment on above: Performed By: #### P P #### [place] [address] [place] #### LUPANTCOAG #### [facility] , MCV (RBC) [Entitic vol] 84.6 fL Normal 80-100 [facility] Comment on above: Performed By: #### P P #### [place] [address] [place] #### LUPANTCOAG #### [facility] , Mean Corpuscular HGB Conc 33.6 g/dL Normal 32.0-35.0 [facility] Comment on above: Performed By: #### P P #### [place] [address] [place] #### LUPANTCOAG #### [facility] , Monocytes (Bld) [#/Vol] 0.3 10*3/uL Normal 0.0-0.8 [facility] Comment on above: Performed By: #### P P #### [place] [address] [place] #### LUPANTCOAG #### [facility] , Monocytes/100 WBC (Bld) 5.1 % Normal . [facility] Comment on above: Performed By: #### P P #### [place] [address] [place] #### LUPANTCOAG #### [facility] , Neutrophils (Bld) [#/Vol] 3.3 10*3/uL Normal 1.8-7.7 [facility] Comment on above: Performed By: #### P P #### [place] [address] [place] #### LUPANTCOAG #### [facility] , Neutrophils/100 WBC (Bld) 59.9 % Normal . [facility] Comment on above: Performed By: #### P P #### [place] [address] [place] #### LUPANTCOAG #### [facility] , NRBC% 0.1 /100{WBC} Normal 0-0.5 [facility] Comment on above: Performed By: #### P P #### [place] [address] [place] #### LUPANTCOAG #### [facility] , Platelet mean volume (Bld) [Entitic vol] 7.5 fL Normal 6.3-10.7 The [facility] Comment on above: Performed By: #### P P #### [place] [address] [place] #### LUPANTCOAG #### [facility] , Platelets (Bld) [#/Vol] 347 10*3/uL Normal 150-450 [facility] Comment on above: Performed By: #### P P #### [facility] [address] [place] [address] [place] #### LUPANTCOAG #### [facility] , RBC (Bld) [#/Vol] 4.68 10*6/uL Normal 3.60-5.00 The [facility] Comment on above: Performed By: #### P P #### [facility] [address] [place] [address] [place] #### LUPANTCOAG #### [facility] , WBC (Bld) [#/Vol] 5.6 10*3/uL Normal 3.8-11.6 The Count includes the [facility] Comment on above: Performed By: #### P P #### [place] [address] [place] #### LUPANTCOAG #### [facility] , Comprehensive Metabolic Pane boyd 12-16-2024 Albumin [Mass/Vol] 4.1 g/dL Normal 3.5-5.7 The Count includes the [facility] Comment on above: Performed By: #### P P #### [facility] [address] [place] [address] #### LUPANTCOAG #### [facility] , Albumin/Globulin [Mass ratio] 1.9 {ratio} Normal [facility] Comment on above: Performed By: #### P P #### [facility] [address] [place] [address] [place] #### LUPANTCOAG #### [facility] , ALP [Catalytic activity/Vol] 84 U/L Normal 34-104 [facility] Comment on above: Performed By: #### P P #### [facility] [address] [place] [address] [place] #### LUPANTCOAG #### [facility] , ALT [Catalytic activity/Vol] 31 U/L Normal 7-52 [facility] Comment on above: Performed By: #### P P #### [facility] [address] [place] [address] #### LUPANTCOAG #### [facility] , Anion gap [Moles/Vol] 8.2 mmol/L Normal 6.0-15.0 [facility] Comment on above: Performed By: #### P P #### [facility] [address] [place] [address] #### LUPANTCOAG #### [facility] , AST [Catalytic activity/Vol] 31 U/L Normal 13-39 [facility] Comment on above: Performed By: #### P P #### [address] #### LUPANTCOAG #### [facility] , Bilirubin [Mass/Vol] 0.3 mg/dL Normal 0.3-1.0 [facility] Comment on above: Performed By: #### P P #### [facility] [address] [place] [address] #### LUPANTCOAG #### [facility] , Calcium [Mass/Vol] 9.3 mg/dL Normal 8.6-10.3 The Count includes the [facility] Comment on above: Performed By: #### P P #### [facility] [address] [place] [address] [place] #### LUPANTCOAG #### [facility] , Chloride [Moles/Vol] 107 mmol/L Normal 98-107 [facility] Comment on above: Performed By: #### P P #### [facility] [address] [place] [address] [place] #### LUPANTCOAG #### [facility] , CO2 [Moles/Vol] 30.0 mmol/L Normal 21.0-31.0 The [facility] Comment on above: Performed By: #### P P #### [facility] [address] [place] [address] [place] #### LUPANTCOAG #### [facility] , Creatinine [Mass/Vol] 0.70 mg/dL Normal 0.60-1.20 [facility] Comment on above: Performed By: #### P P #### [facility] [address] [place] [address] [place] #### LUPANTCOAG #### [facility] , GFR/1.73 sq M.predicted MDRD (S/P/Bld) [Vol rate/Area] mL/min/{1.73_m2} Normal [facility] Comment on above: Performed By: #### P P #### [place] [address] [place] #### LUPANTCOAG #### [facility] , Globulin (S) [Mass/Vol] 2.2 g/dL Normal [facility] Comment on above: Performed By: #### P P #### [place] [address] [place] #### LUPANTCOAG #### [facility] , Glucose [Mass/Vol] 85 mg/dL Normal 70-100 The Count includes the [facility] Comment on above: Result Comment: [place] Glucose Reference Range is dependent on time and content of last meal. Glucose of more than 200 mg/dL in a nonstressed, ambulatory subject supports the diagnosis of Diabetes Mellitus. ADA recommended reference range Performed By: #### P P #### [facility] [address] [place] [address] [place] #### LUPANTCOAG #### [facility] , Potassium [Moles/Vol] 4.2 mmol/L Normal 3.5-5.1 [facility] Comment on above: Performed By: #### P P #### [place] [address] [place] #### LUPANTCOAG #### [facility] , Protein [Mass/Vol] 6.3 g/dL Low 6.4-8.9 The Count includes the [facility] Comment on above: Performed By: #### P P #### [place] [address] [place] #### LUPANTCOAG #### [facility] , Sodium [Moles/Vol] 141 mmol/L Normal 136-145 The Count includes the [facility] Comment on above: Performed By: #### P P #### [place] [address] [place] #### LUPANTCOAG #### [facility] , Urea nitrogen [Mass/Vol] 11 mg/dL Normal 7-25 [facility] Comment on above: Performed By: #### P P #### [place] [address] [place] #### LUPANTCOAG #### [facility] , Creatine Kinaseon 12-16-2024 CK [Catalytic activity/Vol] 487 U/L High 30-223 [facility] Comment on above: Result Comment: PERF ORMED BY: [place] [address] PATHOLOGIST PRODUCTION WOOD CRAFTSMAN PAZ GUILLERMO M.D. Performed By: #### P P #### [place] [address] [place] #### LUPANTCOAG #### [facility] , Creatine kinase [Enzymatic a ctivity/volume] in Serum or PlasmaOrdered By: Everett Valdez on 12-16-2024 CK [Catalytic activity/Vol] Creatine kinase [Enzymatic activity/volume] in Serum or Plasma High 30-223 [facility] Creatinine [Mass/volume] in Serum or PlasmaOrdered By: Everett Valdez on 12-16-2024 Creatinine [Mass/Vol] Creatinine [Mass/volume] in Serum or Plasma 0.60-1.20 [facility] Dipstick and Microscopicon 0 2-10-2025 Appearance (U) Clear Normal Clear The [facility] Comment on above: Order Comment: Name Collection Type:: Clean-Voided Midstream Performed By: #### P P #### [address] #### LUPANTCOAG #### [facility] , Bacteria,Urine Rare Normal None Seen [facility] Comment on above: Order Comment: Name Collection Type:: Clean-Voided Midstream Performed By: #### P P #### [address] #### LUPANTCOAG #### [facility] , Bilirubin,Urine Negative Normal Negative The [facility] Comment on above: Order Comment: Name Collection Type:: Clean-Voided Midstream Performed By: #### P P #### [address] #### LUPANTCOAG #### [facility] , Color (U) Yellow Normal Yellow [facility] Comment on above: Order Comment: Name Collection Type:: Clean-Voided Midstream Performed By: #### P P #### [address] #### LUPANTCOAG #### [facility] , Glucose Ql (U) Normal Normal Normal [facility] Comment on above: Order Comment: Name Collection Type:: Clean-Voided Midstream Performed By: #### P P #### [address] #### LUPANTCOAG #### [facility] , Hyaline Casts,Urine 0-8 Normal 0-8 [facility] Comment on above: Order Comment: Name Collection Type:: Clean-Voided Midstream Performed By: #### P P #### [address] #### LUPANTCOAG #### [facility] , Ketones Ql (U) Negative Normal Negative [facility] Comment on above: Order Comment: Name Collection Type:: Clean-Voided Midstream Performed By: #### P P #### [address] #### LUPANTCOAG #### [facility] , Leukocyte esterase Test strip Ql (U) Negative Normal Negative [facility] Comment on above: Order Comment: Name Collection Type:: Clean-Voided Midstream Performed By: #### P P #### [address] #### LUPANTCOAG #### [facility] , Mucus,Urine 1+ Critically abnormal [facility] Comment on above: Order Comment: Name Collection Type:: Clean-Voided Midstream Result Comment: PERF ORMED BY: [place] [address] PATHOLOGIST PRODUCTION WOOD CRAFTSMAN PAZ GUILLERMO M.D. Performed By: #### P P #### [address] #### LUPANTCOAG #### [facility] , Nitrite,Urine Negative Normal Negative [facility] Comment on above: Order Comment: Name Collection Type:: Clean-Voided Midstream Performed By: #### P P #### [address] #### LUPANTCOAG #### [facility] , Occult Blood,Urine Negative Normal Negative The Count includes the [facility] Comment on above: Order Comment: Name Collection Type:: Clean-Voided Midstream Performed By: #### P P #### [address] #### LUPANTCOAG #### [facility] , pH (U) 5.0 [pH] Normal 5.0-9.0 [facility] Comment on above: Order Comment: Name Collection Type:: Clean-Voided Midstream Performed By: #### P P #### [address] #### LUPANTCOAG #### [facility] , Protein,Urine Negative Normal Negative [facility] Comment on above: Order Comment: Name Collection Type:: Clean-Voided Midstream Performed By: #### P P #### [address] #### LUPANTCOAG #### [facility] , RBC,Urine 1-2 Normal 0-4 [facility] Comment on above: Order Comment: Name Collection Type:: Clean-Voided Midstream Performed By: #### P P #### [address] #### LUPANTCOAG #### [facility] , Specificy [place],Urine 1.024 Normal 1.001-1.030 [facility] Comment on above: Order Comment: Name Collection Type:: Clean-Voided Midstream Performed By: #### P P #### [address] #### LUPANTCOAG #### [facility] , Squamous Epithelial Cell,Urine 5-9 High 0-2 [facility] Comment on above: Order Comment: Name Collection Type:: Clean-Voided Midstream Performed By: #### P P #### [place] [address] [place] #### LUPANTCOAG #### [facility] , Urobilinogen,Urine Normal Normal Normal The Count includes the [facility] Comment on above: Order Comment: Name Collection Type:: Clean-Voided Midstream Performed By: #### P P #### [place] [address] [place] #### LUPANTCOAG #### [facility] , WBC,Urine 1-2 Normal 0-4 [facility] Comment on above: Order Comment: Name Collection Type:: Clean-Voided Midstream Performed By: #### P P #### [facility] [address] [place] [address] #### LUPANTCOAG #### [facility] , Eosinophils Auto (Bld) [#/Vo l]Ordered By: Everett Valdez on 12-16-2024 Eosinophils (Bld) [#/Vol] Automated eosinophil count 0.0-0.45 [facility] Eosinophils/100 WBC Auto (Bl d)Ordered By: Everett Valdez on 12-16-2024 Eosinophils/100 WBC (Bld) Automated eosinophil % . [facility] Epithelial cells.squamous [# /area] in Urine sediment by Automated countOrdered By: Everett Valdez on 12-16-2024 Epithelial cells.squamous Auto (Urine sed) [#/Area] Epithelial cells.squamous [#/area] in Urine sediment by Automated count High 0-2 [facility] Erythrocyte Sedimentation Ra lian 12-16-2024 ESR (Bld) [Velocity] 6 mm/h Normal 0-29 [facility] Comment on above: Result Comment: PERF ORMED BY: [place] [address] PATHOLOGIST [employer] CRA[employer]SMAN PAZ GUILLERMO M.D. Performed By: #### P P #### [facility] [address] [place] [address] #### LUPANTCOAG #### [facility] , Erythrocyte distribution wid th Auto (RBC) [Ratio]Ordered By: Everett Valdez on 12-16-2024 Erythrocyte distribution width (RBC) [Ratio] Erythrocyte distribution width [Ratio] by Automated count 11.9-15.3 [facility] Erythrocyte sedimentation ra te by Photometric methodOrdered By: Everett Valdez on 12-16-2024 ESR Photometric method (Bld) [Velocity] Erythrocyte sedimentation rate by Photometric method 0-29 [facility] Erythrocytes [#/area] in Uri ne sediment by Automated countOrdered By: Everett Valdez on 12-16-2024 RBC Auto (Urine sed) [#/Area] Erythrocytes [#/area] in Urine sediment by Automated count 0-4 [facility] Free T4 (Free Thyroxine)on 0 12-16-2024 Free T4 [Mass/Vol] 0.77 ng/dL Normal 0.61-1.12 The Count includes the [facility] Comment on above: Performed By: #### P P #### [facility] [address] [place] [address] #### LUPANTCOAG #### [facility] , Globulin Calc (S) [Mass/Vol] Ordered By: Everett Valdez on 12-16-2024 Globulin (S) [Mass/Vol] Serum globulin measurement by calculation (mass/volume) [facility] Glucose [Mass/volume] in Ser um or PlasmaOrdered By: Everett Valdez on 12-16-2024 Glucose [Mass/Vol] Glucose [Mass/volume ] in Serum or Plasma 70-100 [facility] Comment on above: ADA recommended refe [...] [Mass/volume] in Urine by Test strip Normal [facility] Hematocrit Auto (Bld) [Volum e fraction]Ordered By: Everett Valdez on 12-16-2024 Hematocrit (Bld) [Volume fraction] Hematocrit [Volume Fraction] of Blood by Automated count 34.0-46.4 [facility] Hemoglobin Test strip Ql (U) Ordered By: Everett Valdez on 12-16-2024 Hemoglobin Ql (U) Hemoglobin [Presence ] in Urine by Test strip Negative [facility] Hemoglobin [Mass/volume] in BloodOrdered By: Everett Valdez on 12-16-2024 Hemoglobin (Bld) [Mass/Vol] Hemoglobin [Mass/volume] in Blood 11.8-15.4 [facility] Hyaline casts [#/area] in Ur ine sediment by Automated countOrdered By: Everett Valdez on 12-16-2024 Hyaline casts Auto (Urine sed) [#/Area] Hyaline casts [#/area] in Urine sediment by Automated count 0-8 [facility] INR in Platelet poor plasma by Coagulation assayOrdered By: Everett Valdez on 12-16-2024 INR Coag (PPP) [Relative time] INR in Platelet poor plasma by Coagulation assay [facility] Comment on above: INR Therapeutic [...] Immunofixation (U) [Interp] Immunofixation for Urine . [facility] Comment on above: No monoclonality det ected.Performed at: [facility] [address] [id number] Director: Erick Neville PhD, Phone: [phone] Immunofixation, (GUZMAN), Urine on 12-16-2024 Immunofixation, (GUZMAN), Urine Comment Normal . [facility] Comment on above: Result Comment: No m onoclonality detected. Performed at: [facility] [place] [id number] [place]: Erick Neville PhD, Phone: [phone] Performed By: #### P P #### [place] [address] [place] #### LUPANTCOAG #### [facility] , Immunofixation,Serumon 12-16 Immunofixation, Serum Comment Normal . [facility] Comment on above: Result Comment: No m onoclonality detected. Performed By: #### P P #### [facility] [address] [place] [address] [place] #### LUPANTCOAG #### [facility] , Immunoglobulin A, Serum 216 mg/dL Normal 87-352 [facility] Comment on above: Performed By: #### P P #### [facility] [address] [place] [address] [place] #### LUPANTCOAG #### [facility] , Immunoglobulin G 802 mg/dL Normal 586-1602 [facility] Comment on above: Performed By: #### P P #### [facility] [address] [place] [address] [place] #### LUPANTCOAG #### [facility] , Immunoglobulin M, Serum 78 mg/dL Normal 26-217 [facility] Comment on above: Result Comment: Perf ormed at: - [facility] [place] [id number] [place]: Erick Neville PhD, Phone: [phone] Performed By: #### P P #### [facility] [address] [place] [address] [place] #### LUPANTCOAG #### [facility] , Ketones Test strip Ql (U)Ord ered By: Everett Valdez on 12-16-2024 Ketones Ql (U) Ketones [Presence] i n Urine by Test strip Negative [facility] Leukocyte esterase [Presence ] in Urine by Test stripOrdered By: Everett Valdez on 12-16-2024 Leukocyte esterase Test strip Ql (U) Leukocyte esterase [Presence] in Urine by Test strip Negative [facility] Leukocytes [#/area] in Urine sediment by Automated countOrdered By: Everett Valdez on 12-16-2024 WBC Auto (Urine sed) [#/Area] Leukocytes [#/area] in Urine sediment by Automated count 0-4 [facility] Leukocytes [#/volume] correc herbert for nucleated erythrocytes in Blood by Automated counOrdered By: Everett Valdez on 12-16-2024 WBC corrected for nucl RBC Auto (Bld) [#/Vol] Leukocytes [#/volume] corrected for nucleated erythrocytes in Blood by Automated coun 3.8-11.6 [facility] Lupus Anticoagulant Compon 0 12-16-2024 Dilute Prothrombin Time (dPt) 30.8 Normal 0.0-47.6 [facility] Comment on above: Performed By: #### P P #### [place] [address] [place] #### LUPANTCOAG #### [facility] , dPT Confirm Ratio 1.06 Normal 0.00-1.34 [facility] Comment on above: Performed By: #### P P #### [address] #### LUPANTCOAG #### [facility] , DRVVT Lupus 37.0 Normal 0.0-47.0 [facility] Comment on above: Performed By: #### P P #### [address] #### LUPANTCOAG #### [facility] , Interpretation Comment: Normal . [facility] Comment on above: Result Comment: No l upus anticoagulant was detected. Performed at: - [facility] [id number] [place]: Jim Gong MD, Phone: [phone] PERFORMED BY: [place] [address] PATHOLOGIST [employer] CRAFTSMAN PAZ GUILLERMO M.D. Performed By: #### P P #### [place] [address] [place] #### LUPANTCOAG #### [facility] , PTT-LA 26.8 Normal 0.0-43.5 [facility] Comment on above: Performed By: #### P P #### [place] [address] [place] #### LUPANTCOAG #### [facility] , Thrombin Time 19.0 Normal 0.0-23.0 [facility] Comment on above: Performed By: #### P P #### [address] #### LUPANTCOAG #### [facility] , Lupus anticoagulant [Interpr etation] in Platelet poor plasmaOrdered By: Everett Valdez on 12-16-2024 Lupus anticoagulant (PPP) [Interp] Lupus anticoagulant [Interpretation] in Platelet poor plasma . [facility] Comment on above: No lupus anticoagula nt was detected.Performed at: [address] [id number] Director: Jim Gong MD, Phone: [phone] Lymphocytes Auto (Bld) [#/Vo l]Ordered By: Everett Valdez on 12-16-2024 Lymphocytes (Bld) [#/Vol] Lymphocytes [#/volume] in Blood by Automated count 1.00-4.8 [facility] Lymphocytes/100 WBC Auto (Bl d)Ordered By: Everett Valdez on 12-16-2024 Lymphocytes/100 WBC (Bld) Lymphocytes/100 leukocytes in Blood by Automated count . [facility] MCH Auto (RBC) [Entitic mass ]Ordered By: Everett Valdez on 12-16-2024 MCH (RBC) [Entitic mass] MCH [Entitic mass] by Automated count 24.7-34.3 [facility] MCHC Auto (RBC) [Mass/Vol]Or dered By: Everett Valdez on 12-16-2024 MCHC (RBC) [Mass/Vol] MCHC [Mass/volume] by Automated count 32.0-35.0 [facility] MCV Auto (RBC) [Entitic vol] Ordered By: Everett Valdez on 12-16-2024 MCV (RBC) [Entitic vol] MCV [Entitic volume] by Automated count 80-100 [facility] Monocytes Auto (Bld) [#/Vol] Ordered By: Everett Valdez on 12-16-2024 Monocytes (Bld) [#/Vol] Automated blood monocyte count 0.0-0.8 [facility] Monocytes/100 WBC Auto (Bld) Ordered By: Everett Valdez on 12-16-2024 Monocytes/100 WBC (Bld) Automated monocyte % . [facility] Mucus [Presence] in Urine by AutomatedOrdered By: Everett Valdez on 12-16-2024 Mucus Auto Ql (U) Mucus [Presence] in Urine by Automated Abnormal [facility] Neutrophils Auto (Bld) [#/Vo l]Ordered By: Everett Valdez on 12-16-2024 Neutrophils (Bld) [#/Vol] Neutrophils [#/volume] in Blood by Automated count 1.8-7.7 [facility] Neutrophils/100 WBC Auto (Bl d)Ordered By: Everett Valdez on 12-16-2024 Neutrophils/100 WBC (Bld) Automated neutrophil % . [facility] Nitrite Test strip Ql (U)Ord ered By: Everett Valdez on 12-16-2024 Nitrite Ql (U) Nitrite [Presence] i n Urine by Test strip Negative [facility] No Panel InformationOrdered By: Everett Valdez on 12-16-2024 Estimated GFR (CKD-EPI) > 60.0 mL/Min [facility] Creatinine Clearance (Chem N/A [facility] Protein Electrophoresis M-Juan Miguel Not observed g/dL Not Observed [facility] Protein Electrophoresis Note Comment . [facility] Comment on above: Protein electrophore sis scan will follow via computer,mail, or broker in charge delivery.Performed at: [address] [id number] Director: Erick Neville PhD, Phone: [phone] Urine Random Prot Electrophor Note Comment . [facility] Comment on above: Protein electrophore sis scan will follow via computer,mail, or broker in charge delivery. Nucleated erythrocytes [Pres ence] in Blood by Automated countOrdered By: Everett Valdez on 12-16-2024 Nucleated RBC Auto Ql (Bld) Nucleated erythrocytes [Presence] in Blood by Automated count 0-0.5 [facility] Plasma thrombin timeOrdered By: Everett Valdez on 12-16-2024 Thrombin time Coag (PPP) [Time] TT plas 0.0-23.0 [facility] Platelet mean volume Auto (B ld) [Entitic vol]Ordered By: Everett Valdez on 12-16-2024 Platelet mean volume (Bld) [Entitic vol] Platelet mean volume [Entitic volume] in Blood by Automated count 6.3-10.7 [facility] Platelet poor plasma ratio o f lupus anticoagulant-sensitive activated partial thromboOrdered By: Everett Valdez on 12-16-2024 aPTT.lupus sensitive.excess phospholipid actual/normal Coag (PPP) [Relative time] Platelet poor plasma ratio of lupus anticoagulant-sensitiv e activated partial thrombo 0.0-47.6 [facility] Platelets Auto (Bld) [#/Vol] Ordered By: Everett Valdez on 12-16-2024 Platelets (Bld) [#/Vol] Platelets [#/volume] in Blood by Automated count 150-450 [facility] Potassium [Moles/volume] in Serum or PlasmaOrdered By: Everett Valdez on 12-16-2024 Potassium [Moles/Vol] Potassium [Moles/volume] in Serum or Plasma 3.5-5.1 [facility] Protein Electro, Random Urin destinee 12-16-2024 Albumin, Urine 34.3 % Normal . [facility] Comment on above: Performed By: #### E SR, TSH3, CK, ADDONUAPLUS, CBC, CRP, CMP, T4F ####[address]#### RPR W RFX, ALDOLASE, GUZMAN,URINE, UPE RAND ####[facility] , Nxpno-8-Htqymssn, Urine 2.2 % Normal . [facility] Comment on above: Performed By: #### E SR, TSH3, CK, ADDONUAPLUS, CBC, CRP, CMP, T4F ####[address]#### RPR W RFX, ALDOLASE, GUZMAN,URINE, UPE RAND ####[facility] , Eprtx-9-Axpfhnfe, Urine 18.4 % Normal . [facility] Comment on above: Performed By: #### E SR, TSH3, CK, ADDONUAPLUS, CBC, CRP, CMP, T4F ####[address]#### RPR W RFX, ALDOLASE, GUZMAN,URINE, UPE RAND ####[facility] , Beta Globulin, Urine 30.5 % Normal . [facility] Comment on above: Performed By: #### E SR, TSH3, CK, ADDONUAPLUS, CBC, CRP, CMP, T4F ####[address]#### RPR W RFX, ALDOLASE, GUZMAN,URINE, UPE RAND ####[facility] , Gamma Globulin, Urine 14.7 % Normal . [facility] Comment on above: Performed By: #### E SR, TSH3, CK, ADDONUAPLUS, CBC, CRP, CMP, T4F ####[address]#### RPR W RFX, ALDOLASE, GUZMAN,URINE, UPE RAND ####[facility] , M-Juan Miguel % Not Observed Normal Not Observed [facility] Comment on above: Performed By: #### E SR, TSH3, CK, ADDONUAPLUS, CBC, CRP, CMP, T4F ####[address]#### RPR W RFX, ALDOLASE, GUZMAN,URINE, UPE RAND ####[facility] , Please Note: Comment Normal . [facility] Comment on above: Result Comment: Prot ein electrophoresis scan will follow via computer, mail, or broker in charge delivery. PERFORMED BY: [place] [address] PATHOLOGIST [employer]RAFTSMAN PAZ GUILLERMO M.D. Performed By: #### E SR, TSH3, CK, ADDONUAPLUS, CBC, CRP, CMP, T4F ####[address]#### RPR W RFX, ALDOLASE, GUZMAN,URINE, UPE RAND ####[facility] , Protein (U) [Mass/Vol] 9.0 mg/dL Normal Not Estab. [facility] Comment on above: Performed By: #### E SR, TSH3, CK, ADDONUAPLUS, CBC, CRP, CMP, T4F ####[address]#### RPR W RFX, ALDOLASE, GUZMAN,URINE, UPE RAND ####[facility] , Protein Electrophoresis, Ser umon 12-16-2024 Albumin [Mass/Vol] 3.8 g/dL Normal 2.9-4.4 The Count includes the [facility] Comment on above: Performed By: #### P P #### [address] #### LUPANTCOAG #### [facility] , Albumin/Globulin [Mass ratio] 1.4 {ratio} Normal 0.7-1.7 [facility] Comment on above: Performed By: #### P P #### [address] #### LUPANTCOAG #### [facility] , Pchvj-7-Cekugqth 0.2 g/dL Normal 0.0-0.4 [facility] Comment on above: Performed By: #### P P #### [place] [address] [place] #### LUPANTCOAG #### [facility] , Ndlbo-4-Ateghcut 0.6 g/dL Normal 0.4-1.0 [facility] Comment on above: Performed By: #### P P #### [place] [address] [place] #### LUPANTCOAG #### [facility] , Beta Globulin 1.1 g/dL Normal 0.7-1.3 [facility] Comment on above: Performed By: #### P P #### [address] #### LUPANTCOAG #### [facility] , Gamma Globulin 0.8 g/dL Normal 0.4-1.8 [facility] Comment on above: Performed By: #### P P #### [place] [address] [place] #### LUPANTCOAG #### [facility] , Globulin (S) [Mass/Vol] 2.7 g/dL Normal 2.2-3.9 [facility] Comment on above: Performed By: #### P P #### [place] [address] [place] #### LUPANTCOAG #### [facility] , M-Juan Miguel Not Observed Normal Not Observed [facility] Comment on above: Performed By: #### P P #### [place] [address] [place] #### LUPANTCOAG #### [facility] , Protein [Mass/Vol] 6.5 g/dL Normal 6.0-8.5 [facility] Comment on above: Performed By: #### P P #### [place] [address] [place] #### LUPANTCOAG #### [facility] , SPE-Note Comment Normal . [facility] Comment on above: Result Comment: Prot ein electrophoresis scan will follow via computer, mail, or broker in charge delivery. Performed at: [facility] [id number] [place]: Erick Neville PhD, Phone: [phone] Performed By: #### P P #### [address] [place] [address] [place] #### LUPANTCOAG #### [facility] , Protein Test strip (U) [Mass /Vol]Ordered By: Everett Courtney on 12-16-2024 Protein (U) [Mass/Vol] Protein [Mass/volume] in Urine by Test strip Negative [facility] Protein [Mass/volume] in Ser um or PlasmaOrdered By: Everett Valdez on 12-16-2024 Protein [Mass/Vol] Protein [Mass/volume ] in Serum or Plasma 6.0-8.5 [facility] Prothrombin time (PT)Ordered By: Everett Valdez on 12-16-2024 PT Coag (PPP) [Time] Prothrombin time (PT) 9.0- 12.9 [facility] Comment on above: A hematocrit value g reater than 55% may lead to inaccurate results in coagulation testing. Patients having hematocrit values >55% require a special collection tube for coagulation studies. Please contact the laboratory at [phone] for redraw instructions. RBC Auto (Bld) [#/Vol]Ordere d By: Everett Valdez on 12-16-2024 RBC (Bld) [#/Vol] Erythrocytes [#/volume] in Blood by Automated count 3.60-5.00 [facility] RPR w/rfx to Quant TP Abson 12-16-2024 RPR, Rfx Quant RPR Non-Reactive Normal Non Reactive [facility] Comment on above: Result Comment: Perf ormed at: CB - [facility] [address] [id number] [place]: Erick Neville PhD, Phone: [phone] PERFORMED BY: [place] [address] PATHOLOGIST [employer]RA[employer]SM[employer] PAZ GUILLERMO M.D. Performed By: #### P P #### [facility] [address] [place] [address] #### LUPANTCOAG #### [facility] , Screening dilute Jamie's v iper venom time (DRVVT) with reflex to confirmatory testOrdered By: Everett Valdez on 12-16-2024 dRVVT Coag (PPP) [Time] Screening dilute Jamie's viper venom time (DRVVT) with reflex to confirmatory test 0.0-47.0 [facility] Screening lupus anticoagulan t-sensitive activated partial thromboplastin time (aPTT)Ordered By: Everett Valdez on 12-16-2024 aPTT.lupus sensitive Coag (PPP) [Time] Screening lupus anticoagulant-sensitiv e activated partial thromboplastin time (aPTT) 0.0-43.5 [facility] Serum RPR testOrdered By: Dori Valdez on 12-16-2024 Reagin Ab RPR Ql (S) Reagin Ab [Presence ] in Serum by RPR Non Reactive [facility] Comment on above: Performed at: [facility] [address] Director: Erick Neville PhD, Phone: [phone] Serum aldolase measurementOr dered By: Everett Valdez on 12-16-2024 Aldolase 13.5 U/L High 3.3-10.3 [facility] Comment on above: Performed at: [facility] [address] [id number] Director: Erick Neville PhD, Phone: [phone] Result Comment: Perf ormed at: [facility] [address] [place]: Erick Neville PhD, Phone: [phone] PERFORMED BY: [place] [address] PATHOLOGIST [employer] CRAFTSMAN PAZ GUILLERMO M.D. Performed By: #### P P #### [place] [address] [place] #### LUPANTCOAG #### [facility] , Serum globulin measurement ( mass/volume)Ordered By: Everett Valdez on 12-16-2024 Globulin (S) [Mass/Vol] Serum globulin measurement (mass/volume) 2.2-3.9 [facility] Serum homogeneous pattern an tinuclear antibody (CHUYITA) titerOrdered By: Everett Valdez on 12-16-2024 Homogenous nuclear Ab pattern (S) [Titer] Serum homogeneous pattern antinuclear antibody (CHUYITA) titer [facility] Serum immunofixation electro phoresisOrdered By: Everett Valdez on 12-16-2024 Serum Immunofixation Comment . [facility] Comment on above: No monoclonality det ected. Serum nuclear antibody titer Ordered By: Everett Valdez on 12-16-2024 Nuclear Ab (S) [Titer] Serum nuclear antibody titer . [facility] Comment on above: Negative <1:80 Borde rline 1:80 Positive >1:80ICAP nomenclature: [id number] more information about Hep-2 cell patterns useANApatterns.org, the official website for theInternational Consensus on Antinuclear Antibody (CHUYITA)Patterns (ICAP).Performed at: [facility] [id number] [place], [place] [id number] Director: Erick Neville PhD, Phone: [phone] Serum or plasma IgA measurem ent (mass/volume)Ordered By: Everett Valdez on 12-16-2024 IgA [Mass/Vol] IgA [Mass/volume] in Serum or Plasma 87-352 [facility] Serum or plasma IgG measurem ent (mass/volume)Ordered By: Everett Valdez on 12-16-2024 IgG [Mass/Vol] IgG [Mass/volume] in Serum or Plasma [phone] [facility] Serum or plasma IgM measurem ent (mass/volume)Ordered By: Everett Valdez on 12-16-2024 IgM [Mass/Vol] IgM [Mass/volume] in Serum or Plasma 26-217 [facility] Comment on above: Performed at: [facility] [id number] [place], [place] [id number] Director: Erick Neville PhD, Phone: [phone] Serum or plasma albumin ravinder urement (mass/volume)Ordered By: Everett Valdez on 12-16-2024 Albumin [Mass/Vol] Albumin [Mass/volume ] in Serum or Plasma 2.9-4.4 [facility] Serum or plasma albumin/glob ulin mass ratioOrdered By: Everett Valdez on 12-16-2024 Albumin/Globulin [Mass ratio] Serum or plasma albumin/globulin mass ratio 0.7-1.7 [facility] Serum or plasma alpha 1 glob ulin measurement by electrophoresis (mass/volume)Ordered By: Everett Valdez on 12-16-2024 Alpha 1 globulin Elph [Mass/Vol] Serum or plasma alpha 1 globulin measurement by electrophoresis (mass/volume) 0.0-0.4 [facility] Serum or plasma alpha 2 glob ulin measurement by electrophoresis (mass/volume)Ordered By: Everett Valdez on 12-16-2024 Alpha 2 globulin Elph [Mass/Vol] Serum or plasma alpha 2 globulin measurement by electrophoresis (mass/volume) 0.4-1.0 [facility] Serum or plasma anion gap de terminationOrdered By: Everett Valdez on 12-16-2024 Anion gap [Moles/Vol] Serum or plasma an ion gap determination 6.0-15.0 [facility] Serum or plasma beta globuli n measurement by electrophoresis (mass/volume)Ordered By: Everett Valdez on 12-16-2024 Beta globulin Elph [Mass/Vol] Serum or plasma beta globulin measurement by electrophoresis (mass/volume) 0.7-1.3 [facility] Serum or plasma chromatin an tibody assay (units/volume)Ordered By: Everett Valdez on 12-16-2024 Chromatin Ab Qn Serum or plasma chromatin antibody assay (units/volume) 0.0-0.9 [facility] Comment on above: Performed at: [employer] [place] [id number] Director: Erick Neville PhD, Phone: [phone] Serum or plasma complement C 3 measurement (mass/volume)Ordered By: Everett Valdez on 12-16-2024 Complement C3 [Mass/Vol] Serum or plasma complement C3 measurement (mass/volume) 82-167 [facility] Comment on above: Performed at: [facility] [id number] Director: Erick Neville PhD, Phone: [phone] Serum or plasma complement C 4 measurement (mass/volume)Ordered By: Everett Valdez on 12-16-2024 Complement C4 [Mass/Vol] Serum or plasma complement C4 measurement (mass/volume) 12-38 [facility] Serum or plasma gamma globul in measurement by electrophoresis (mass/volume)Ordered By: Everett Valdez on 12-16-2024 Gamma globulin Elph [Mass/Vol] Serum or plasma gamma globulin measurement by electrophoresis (mass/volume) 0.4-1.8 [facility] Serum or plasma thyroglobuli n antibody assay (units/volume)Ordered By: Everett Valdez on 12-16-2024 Thyroglobulin Ab Qn Serum or plasma thyroglobulin antibody assay (units/volume) 0.0-0.9 [facility] Comment on above: Thyroglobulin Antibo dy measured by AcumenMethodologyIt should be noted that the presence of thyroglobulinantibodies may not be pathogenic nor diagnostic, especiallyat very low levels. The assay tire man has found thatfour percent of individuals without evidence of thyroiddisease or autoimmunity will have positive TgAb levels upto 4 IU/mL.Performed at: [facility] [address] [id number] Director: Erick Neville PhD, Phone: [phone] Serum or plasma thyroperoxid ase antibody assay (units/volume)Ordered By: Everett Valdez on 12-16-2024 TPO Ab Qn Serum or plasma thyroperoxidase antibody assay (units/volume) 0-34 [facility] Comment on above: Performed at: [facility] [address] [id number] Director: Erick Neville PhD, Phone: [phone] Sodium [Moles/volume] in Ser um or PlasmaOrdered By: Everett Valdez on 12-16-2024 Sodium [Moles/Vol] Sodium [Moles/volume ] in Serum or Plasma 136-145 [facility] Specific gravity Test strip (U) [Rel density]Ordered By: Everett Valdez on 12-16-2024 Specific gravity (U) [Rel density] Specific gravity of Urine by Test strip 1.001-1.030 [facility] Thyroid Peroxidase Antibodie son 12-16-2024 Thyroid Peroxidase Antibodies 10 [IU]/mL Normal 0-34 [facility] Comment on above: Result Comment: Perf ormed at: - [facility] [address] [id number] [place]: Erick Neville PhD, Phone: [phone] Performed By: #### P P #### [address] #### LUPANTCOAG #### [facility] , Thyroid Stimulating Hormoneo n 12-16-2024 TSH Qn 1.48 m[IU]/L Normal 0.45-5.33 [facility] Comment on above: Result Comment: PERF ORMED BY: [place] [address] PATHOLOGIST [employer] CRA[employer]SM[employer] PAZ GUILLERMO M.D. Performed By: #### P P #### [address] #### LUPANTCOAG #### [facility] , Thyrotropin [Units/volume] i n Serum or PlasmaOrdered By: Everett Valdez on 12-16-2024 TSH Qn Thyrotropin [Units/volume] in Serum or Plasma 0.45-5.33 [facility] Thyroxine (T4) free [Mass/vo lume] in Serum or PlasmaOrdered By: Everett Valdez on 12-16-2024 Free T4 [Mass/Vol] Thyroxine (T4) free [Mass/volume] in Serum or Plasma 0.61-1.12 [facility] Total hemolytic complement C H50 assayOrdered By: Everett Valdez on 12-16-2024 Total Complement (CH50) >60 U/mL >41 [facility] Comment on above: Age Male Female [...] to determine out of range values.Performed at: [facility] [id number] [place], [place] [id number] Director: Erick Neville PhD, Phone: [phone] Urea nitrogen [Mass/volume] in Serum or PlasmaOrdered By: Everett Valdez on 12-16-2024 Urea nitrogen [Mass/Vol] Urea nitrogen [Mass/volume] in Serum or Plasma 7 [facility] Urine alpha 1 globulin/total protein by electrophoresisOrdered By: Everett Valdez on 12-16-2024 Alpha 1 globulin Elph (U) [Mass fraction] Urine alpha 1 globulin/total protein by electrophoresis . [facility] Urine alpha 2 globulin/total protein ratio by electrophoresisOrdered By: Everett Valdez on 12-16-2024 Alpha 2 globulin Elph (U) [Mass fraction] Urine alpha 2 globulin/total protein ratio by electrophoresis . [facility] Urine beta globulin measurem ent by electrophoresis (mass/volume)Ordered By: Everett Valdez on 12-16-2024 Beta globulin Elph (U) [Mass/Vol] Urine beta globulin measurement by electrophoresis (mass/volume) . [facility] Urine protein measurement (m ass/volume)Ordered By: Everett Valdez on 12-16-2024 Protein (U) [Mass/Vol] Protein [Mass/volume] in Urine Not Estab. [facility] Urobilinogen Test strip (U) [Mass/Vol]Ordered By: Everett Valdez on 12-16-2024 Urobilinogen (U) [Mass/Vol] Urobilinogen [Mass/volume] in Urine by Test strip Normal [facility] WBC Auto (Bld) [#/Vol]Ordere d By: Everett Valdez on 12-16-2024 WBC (Bld) [#/Vol] Leukocytes [#/volume ] in Blood by Automated count 3.8-11.6 [facility] aPTT in Platelet poor plasma by Coagulation assayOrdered By: Everett Valdez on 12-16-2024 aPTT Coag (PPP) [Time] Activated partial thromboplastin time (aPTT) in platelet poor plasma by coagulation a 25.1-36.5 [facility] Comment on above: A hematocrit value g reater than 55% may lead to inaccurate results in coagulation testing. Patients having hematocrit values >55% require a special collection tube for coagulation studies. Please contact the laboratory at [phone] for redraw instructions. aPTT.lupus sensitive/aPTT.hattie pus sensitive W excess phospholipid (screen to confirm raOrdered By: Everett Valdez on 12-16-2024 aPTT.lupus sensitive/aPTT.lupus sensitive W excess phospholipid Coag (PPP) [Ratio] aPTT.lupus sensitive/aPTT.lupus sensitive W excess phospholipid (screen to confirm ra 0.00-1.34 [facility] pH Test strip (U)Ordered By: Everett Valdez on 12-16-2024 pH (U) pH of Urine by Test strip 5.0-9.0 [facility] HBV surface Ab IA Qnon 12-11 Anti HBs quant. >500.00 Normal [facility] Comment on above: Result Comment: NOTE Vaccinated: >=10.00 mIU/mL, Positive (Immune) Unvaccinated: <10.00 mIU/mL, Negative (Not Immune) Interpretive values have changed due to implementation of a new method. Values run higher than previous method. Performed By: #### 3 5275-7, 6476-6, 8014-3, 34245-6, 5193-8 #### [facility] ([id number]) [address], [address] [place] [address] MeV IgG IA Ql (S)on 12-11-19 25 RUBEOLA AB SCREEN 4.1 AI High <0.9 [facility] Comment on above: Result Comment: POSI TIVE: Antibody(IgG) detected. Indicates previous exposure to rubeola virus and immunity. Performed By: #### 3 5275-7, 6476-6, 8014-3, 41526-7, 5193-8 #### [facility] ([id number]) [address], [address] [place] [address] MuV IgG IA Ql (S)on 12-11-19 25 MUMPS VIRUS IgG 2.1 AI High <0.9 [facility] Comment on above: Result Comment: Interpretation-------- <0.9 Negative 0.9 - 1.0 Equivocal >1.0 Positive Performed By: #### 3 5275-7, 6476-6, 8014-3, 55536-6, 5193-8 #### [facility] ([id number]) [address] [place] [address] Rubella virus IgG Qn (S)on 0 12-11-2024 RUBELLA IgG 19 IU/mL Normal [facility] Comment on above: Result Comment: Interpretation-------- <8 NEGATIVE-considered Not Immune 8-9 EQUIVOCAL-consider retesting with new specimen >9 POSITIVE-considered Immune Performed By: #### 3 5275-7, 6476-6, 8014-3, 25054-5, 5193-8 #### [facility] ([id number]) [address] [place] [address] VZV IgG IA Ql (S)on 12-11-19 25 VARICELLA IgG >8.0 High <0.9 [facility] Comment on above: Result Comment: Interpretation-------- <0.9 Negative 0.9 - 1.0 Equivocal >1.0 Positive Performed By: #### 3 5275-7, 6476-6, 8014-3, 32958-9, 5193-8 #### [facility] ([id number]) [address] [place] [address] X-ray reportOrdered By: Brett Bullard on 11-20-2024 Study report [facility] [address] [address] XRay Report Signed Patient: Mary Leal MR#: [id number] : 1970 Acct:[id number] Age/Sex: 54 / F ADM Date: 5 [...] Andres Bullard M.D.11/20/2024 10:02 PM Dictation Location: [facility] Transcribed By: [facility] 11/20/242201 Dictated By: Andres Bullard DO 11/20/242158 Signed By: 11/20/242201 [facility] XR shoulder BI min 2Von 11-06 XR shoulder BI min 2V [facility] [address] [address] XRay Report Signed Patient: Mary Leal MR#: [id number] : 1970 Acct:[id number] Age/Sex: 54 / F ADM Date: 11/20/24 Loc: XD Room: Type: [facility] CLI Attending Dr: Anibal Medrano DO Copies [...] 10:02 PM Dictation Location: [facility]20 Transcribed By: [facility] 11/20/242201 Dictated By: Andres Bullard DO 11/20/242158 Signed By: 11/20/242201 Normal [facility] NM gastric emptying studyon 11-14-2024 NM gastric emptying study [facility] [place] [address] [place] [address] Nuclear Medicine Report Signed Patient: Mayr Leal MR#: [id number] : 1970 Acct:[id number] Age/Sex: 54 / F ADM Date: 11/14/24 Loc: [place] Room: Type: [facility] Attending Dr: Padmaja Llamas MD Copies to: [...] 1354 Signed By: 11/14/24 1354 Normal [facility] Phys[facility] Basic Metabolic Panelon 12- Anion gap [Moles/Vol] 9.4 mmol/L Normal 6.0-15.0 [facility] Comment on above: Performed By: #### B MP #### [address] Calcium [Mass/Vol] 9.0 mg/dL Normal 8.6-10.3 The Count includes the [facility] Comment on above: Performed By: #### B MP #### [address] Chloride [Moles/Vol] 107 mmol/L Normal 98-107 [facility] Comment on above: Performed By: #### B MP #### [address] CO2 [Moles/Vol] 27.3 mmol/L Normal 21.0-31.0 The [facility] Comment on above: Performed By: #### B MP #### [address] Creatinine [Mass/Vol] 0.69 mg/dL Normal 0.60-1.20 [facility] Comment on above: Performed By: #### B MP #### [place] [address] [place] Creatinine Clr Calc Pharmacy 91.21 Normal [facility] Comment on above: Result Comment: PERF ORMED BY: [place] [address] PATHOLOGIST [employer] PAZ GUILLERMO M.D. Performed By: #### B MP #### [place] [address] [place] GFR/1.73 sq M.predicted MDRD (S/P/Bld) [Vol rate/Area] mL/min/{1.73_m2} Normal [facility] Phys[facility] Comment on above: Performed By: #### B MP #### [place] [address] [place] Glucose [Mass/Vol] 93 mg/dL Normal 70-100 The Count includes the [facility] Comment on above: Result Comment: [place] Glucose Reference Range is dependent on time and content of last meal. Glucose of more than 200 mg/dL in a nonstressed, ambulatory subject supports the diagnosis of Diabetes Mellitus. ADA recommended reference range Performed By: #### B MP #### [facility] [address] Potassium [Moles/Vol] 3.7 mmol/L Normal 3.5-5.1 [facility] Comment on above: Performed By: #### B MP #### [facility] [address] Sodium [Moles/Vol] 140 mmol/L Normal 136-145 The Count includes the [facility] Comment on above: Performed By: #### B MP #### [facility] [address] Urea nitrogen [Mass/Vol] 14 mg/dL Normal 7-25 [facility] Comment on above: Performed By: #### B MP #### [facility] [address] [place] [address] [place] Basophils Auto (Bld) [#/Vol] Ordered By: Cullen Christianson on 10-24-2024 Basophils (Bld) [#/Vol] Automated basophil count 0.0-0.2 [facility] Basophils/100 WBC Auto (Bld) Ordered By: Cullen Christianson on 10-24-2024 Basophils/100 WBC (Bld) Automated basophil % . [facility] Calcium [Mass/volume] in Ser um or PlasmaOrdered By: Cullen Christianson on 10-24-2024 Calcium [Mass/Vol] Calcium [Mass/volume ] in Serum or Plasma 8.6-10.3 [facility] Carbon dioxide, total [Moles /volume] in Serum or PlasmaOrdered By: Cullen Christianson on 10-24-2024 CO2 [Moles/Vol] Carbon dioxide, tota l [Moles/volume] in Serum or Plasma 21.0-31.0 [facility] Chloride [Moles/volume] in S jay or PlasmaOrdered By: Cullen Christianson on 10-24-2024 Chloride [Moles/Vol] Chloride [Moles/volume] in Serum or Plasma 98-107 [facility] Complete Blood Count Auto Di ffon 10-24-2024 Basophils (Bld) [#/Vol] 0.1 10*3/uL Normal 0.0-0.2 [facility] Comment on above: Result Comment: PERF ORMED BY: [place] [address] PATHOLOGIST [employer] PAZ GUILLERMO M.D. Performed By: #### C BC #### [address] Basophils/100 WBC (Bld) 1.1 % Normal . [facility] Comment on above: Performed By: #### C BC #### [address] Eosinophils (Bld) [#/Vol] 0.2 10*3/uL Normal 0.0-0.45 [facility] Comment on above: Performed By: #### C BC #### [address] Eosinophils/100 WBC (Bld) 3.7 % Normal . [facility] Comment on above: Performed By: #### C BC #### [address] Erythrocyte distribution width (RBC) [Ratio] 13.1 % Normal 11.9-15.3 [facility] Comment on above: Performed By: #### C BC #### [address] Hematocrit (Bld) [Volume fraction] 37.9 % Normal 34.0-46.4 [facility] Comment on above: Performed By: #### C BC #### [address] Hemoglobin (Bld) [Mass/Vol] 12.8 g/dL Normal 11.8-15.4 [facility] Comment on above: Performed By: #### C BC #### [place] [address] [place] Lymphocytes (Bld) [#/Vol] 1.5 10*3/uL Normal 1.00-4.8 [facility] Comment on above: Performed By: #### C BC #### [address] Lymphocytes/100 WBC (Bld) 29.9 % Normal . [facility] Comment on above: Performed By: #### C BC #### [address] MCH (RBC) [Entitic mass] 28.7 pg Normal 24.7-34.3 [facility] Comment on above: Performed By: #### C BC #### [address] MCV (RBC) [Entitic vol] 85.1 fL Normal 80-100 [facility] Comment on above: Performed By: #### C BC #### [address] Mean Corpuscular HGB Conc 33.8 g/dL Normal 32.0-35.0 [facility] Comment on above: Performed By: #### C BC #### [address] Monocytes (Bld) [#/Vol] 0.4 10*3/uL Normal 0.0-0.8 [facility] Comment on above: Performed By: #### C BC #### [address] Monocytes/100 WBC (Bld) 7.8 % Normal . [facility] Comment on above: Performed By: #### C BC #### [address] Neutrophils (Bld) [#/Vol] 2.9 10*3/uL Normal 1.8-7.7 [facility] Comment on above: Performed By: #### C BC #### [address] Neutrophils/100 WBC (Bld) 57.5 % Normal . [facility] Comment on above: Performed By: #### C BC #### [facility] [address] NRBC% 0.1 /100{WBC} Normal 0-0.5 The [facility] Comment on above: Performed By: #### C BC #### [facility] [address] Platelet mean volume (Bld) [Entitic vol] 7.1 fL Normal 6.3-10.7 The [facility] Comment on above: Performed By: #### C BC #### [facility] [address] [place] [address] [place] Platelets (Bld) [#/Vol] 307 10*3/uL Normal 150-450 [facility] Comment on above: Performed By: #### C BC #### [facility] [address] RBC (Bld) [#/Vol] 4.45 10*6/uL Normal 3.60-5.00 The [facility] Comment on above: Performed By: #### C BC #### [facility] [address] [place] [id number] [place] WBC (Bld) [#/Vol] 5.0 10*3/uL Normal 3.8-11.6 The Count includes the [facility] Comment on above: Performed By: #### C BC #### [facility] [address] Creatinine [Mass/volume] in Serum or PlasmaOrdered By: Cullen Christianson on 10-24-2024 Creatinine [Mass/Vol] Creatinine [Mass/volume] in Serum or Plasma 0.60-1.20 [facility] Eosinophils Auto (Bld) [#/Vo l]Ordered By: Cullen Christianson on 10-24-2024 Eosinophils (Bld) [#/Vol] Automated eosinophil count 0.0-0.45 [facility] Eosinophils/100 WBC Auto (Bl d)Ordered By: Cullen Christianson on 10-24-2024 Eosinophils/100 WBC (Bld) Automated eosinophil % . [facility] Erythrocyte distribution wid th Auto (RBC) [Ratio]Ordered By: Cullen Christianson on 10-24-2024 Erythrocyte distribution width (RBC) [Ratio] Erythrocyte distribution width [Ratio] by Automated count 11.9-15.3 [facility] Glucose [Mass/volume] in Ser um or PlasmaOrdered By: Cullen Christianson on 10-24-2024 Glucose [Mass/Vol] Glucose [Mass/volume ] in Serum or Plasma 70-100 [facility] Comment on above: ADA recommended refe rence rangeRandom Glucose Reference Range is dependent on time and content of last meal. Glucose of more than 200 mg/dL in a nonstressed, ambulatory subject supports the diagnosis of Diabetes Mellitus. Hematocrit Auto (Bld) [Volum e fraction]Ordered By: Cullen Christianson on 10-24-2024 Hematocrit (Bld) [Volume fraction] Hematocrit [Volume Fraction] of Blood by Automated count 34.0-46.4 [facility] Hemoglobin [Mass/volume] in BloodOrdered By: Cullen Christianson 10-24-2024 Hemoglobin (Bld) [Mass/Vol] Hemoglobin [Mass/volume] in Blood 11.8-15.4 [facility] Leukocytes [#/volume] correc herbert for nucleated erythrocytes in Blood by Automated counOrdered By: Cullen Christianson on 10-24-2024 WBC corrected for nucl RBC Auto (Bld) [#/Vol] Leukocytes [#/volume] corrected for nucleated erythrocytes in Blood by Automated coun 3.8-11.6 [facility] Lymphocytes Auto (Bld) [#/Vo l]Ordered By: Cullen Christianson 10-24-2024 Lymphocytes (Bld) [#/Vol] Lymphocytes [#/volume] in Blood by Automated count 1.00-4.8 [facility] Lymphocytes/100 WBC Auto (Bl d)Ordered By: Cullen Christianson on 10-24-2024 Lymphocytes/100 WBC (Bld) Lymphocytes/100 leukocytes in Blood by Automated count . [facility] MCH Auto (RBC) [Entitic mass ]Ordered By: Cullen Christianson on 10-24-2024 MCH (RBC) [Entitic mass] MCH [Entitic mass] by Automated count 24.7-34.3 [facility] MCHC Auto (RBC) [Mass/Vol]Or dered By: Cullen Christianson on 10-24-2024 MCHC (RBC) [Mass/Vol] MCHC [Mass/volume] by Automated count 32.0-35.0 [facility] MCV Auto (RBC) [Entitic vol] Ordered By: Cullen Christianson on 10-24-2024 MCV (RBC) [Entitic vol] MCV [Entitic volume] by Automated count 80-100 [facility] Monocytes Auto (Bld) [#/Vol] Ordered By: Cullen Christianson on 10-24-2024 Monocytes (Bld) [#/Vol] Automated blood monocyte count 0.0-0.8 [facility] Monocytes/100 WBC Auto (Bld) Ordered By: Cullen Christianson on 10-24-2024 Monocytes/100 WBC (Bld) Automated monocyte % . [facility] Neutrophils Auto (Bld) [#/Vo l]Ordered By: Cullen Christianson on 10-24-2024 Neutrophils (Bld) [#/Vol] Neutrophils [#/volume] in Blood by Automated count 1.8-7.7 [facility] Neutrophils/100 WBC Auto (Bl d)Ordered By: Cullen Christianson on 10-24-2024 Neutrophils/100 WBC (Bld) Automated neutrophil % . [facility] No Panel InformationOrdered By: Cullen Christianson on 10-24-2024 Estimated GFR (CKD-EPI) > 60.0 mL/Min [facility] Creatinine Clearance (Chem 91.21 [facility] Nucleated erythrocytes [Pres ence] in Blood by Automated countOrdered By: Cullen Christianson on 10-24-2024 Nucleated RBC Auto Ql (Bld) Nucleated erythrocytes [Presence] in Blood by Automated count 0-0.5 [facility] Platelet mean volume Auto (B ld) [Entitic vol]Ordered By: Cullen Christianson on 10-24-2024 Platelet mean volume (Bld) [Entitic vol] Platelet mean volume [Entitic volume] in Blood by Automated count 6.3-10.7 [facility] Platelets Auto (Bld) [#/Vol] Ordered By: Cullen Christianson on 10-24-2024 Platelets (Bld) [#/Vol] Platelets [#/volume] in Blood by Automated count 150-450 [facility] Potassium [Moles/volume] in Serum or PlasmaOrdered By: Cullen Christianson on 10-24-2024 Potassium [Moles/Vol] Potassium [Moles/volume] in Serum or Plasma 3.5-5.1 [facility] RBC Auto (Bld) [#/Vol]Ordere d By: Cullen Christianson on 10-24-2024 RBC (Bld) [#/Vol] Erythrocytes [#/volume] in Blood by Automated count 3.60-5.00 [facility] Serum or plasma anion gap de terminationOrdered By: Cullen Christianson on 10-24-2024 Anion gap [Moles/Vol] Serum or plasma an ion gap determination 6.0-15.0 [facility] Sodium [Moles/volume] in Ser um or PlasmaOrdered By: Cullen Christianson on 10-24-2024 Sodium [Moles/Vol] Sodium [Moles/volume ] in Serum or Plasma 136-145 [facility] Urea nitrogen [Mass/volume] in Serum or PlasmaOrdered By: Cullen Christianson on 10-24-2024 Urea nitrogen [Mass/Vol] Urea nitrogen [Mass/volume] in Serum or Plasma 7-25 [facility] WBC Auto (Bld) [#/Vol]Ordere d By: Cullen Christianson on 10-24-2024 WBC (Bld) [#/Vol] Leukocytes [#/volume ] in Blood by Automated count 3.8-11.6 [facility] Boyd 10-23-2024 L -- ---- Specimen: [id number] Received: 10/24/24 Status: CASEY Pastrana Num: [id number] Spec Type: Surgical Subm Dr: Dipti Acevedo,DO Tissues: A Vaginal mucosa-other than incidental (GRANULATION TISSUE) Procedures: HE, Gross/Micro L4 ---- Age/ Patient Sex Location Account Attending Physician ---- Mary Leal 54/F [place] [id number] Dipti Acevedo DO ---- SPEC NUM: [id number] RECD: 10/24/24 STATUS: CASEY TATUM NUM: [id number] BOAZ: 10/23/24- [facility] DR: Dipti Acevedo DO ENTERED: 10/24/24 [facility] DR: KAYLIN TYPE: Surgical DEPT: S ENTERED BY: [id number] RECV BY: [id number] ORDERED: HE, Gross/Micro L4 ORDERED: HE, Gross/Micro [...] submitted in a single cassette. (1, ns, [id number]) LES ---- Specimen: [id number] Received: 10/24/24 Status: CASEY Pastrana Num: [id number] Spec Type: Surgical Subm Dr: Dipti Acevedo,DO Tissues: A Vaginal mucosa-other than incidental (GRANULATION TISSUE) Procedures: Praneeth SOTELO/Nadja Fisher ---- Patient: Mary Leal [id number] (Continued) ---- Specimen: [id number] Received: 10/24/24 (Continued) Signed (signature on file) Kiara Velasco MD 10/26/24 1126 ---- Specimen: [id number] Received: 10/24/24 Status: CASEY Pastrana Num: [id number] Spec Type: Surgical Subm Dr: Dipti Acevedo DO Tissues: A Vaginal mucosa-other than incidental (GRANULATION TISSUE) Procedures: ASHLEIGH, Gross/Micro L4 ---- Patient: Mary Leal [id number] (Continued) ---- Specimen: [id number] Received: 10/24/24 (Continued) Microscopic Description Microscopic examinations are performed supporting the above interpretation CPT Codes 90287 ---- ---- Specimen: [id number] Received: 10/24/24 Status: CASEY Pastrana Num: [id number] Spec Type: Surgical Subm Dr: Dipti Acevedo DO Tissues: A Vaginal mucosa-other than incidental (GRANULATION TISSUE) Procedures: HE, Gross/Micro L4 ---- Patient: Mary Leal [id number] (Continued) ---- Signed (signature on file) Kiara Velasco MD 10/26/24 1126 Normal [facility] MR cervical spine wo [facility] 1 12-11-2023 [place] [address] MRI Report Signed Patient: Mary Leal MR#: [id number] [id number] : 1970 Acct:[id number] Age/Sex: 54 / F ADM Date: 10/10/24 Loc: [facility] Room: Type: [facility] Attending Dr: Anibal Medrano DO Copies to: [...] Howie Garcia M.D.10/10/2024 3:47 PM Dictation Location: [facility]- Transcribed By: [facility] 10/10/24 1547 Dictated By: Howie Garcia II, MD 10/10/24 154 Signed By: 10/10/24 1547 Normal [facility] MR lumbar spine wo conon MR lumbar spine wo con [facility] [place] [address] MRI Report Signed Patient: Mary Leal MR#: [id number] 863 : 1970 Acct:[id number] Age/Sex: 54 / F ADM Date: 10/10/24 Loc: [facility] Room: Type: [facility] Attending Dr: Monica IBARRA Copies to: FRED [...] significant interval change. Impression dictated by: Howie Gracia M.D.10/10/2024 3:55 PM Dictation Location: [place] [address] Transcribed By: MARIO 10/10/24 1555 Dictated By: Howie Garcia II, MD 10/10/24 1547 Signed By: 10/10/24 1555 Normal [facility] XR pre/post mri xrayon 10-10 XR pre/post mri xray [facility] [place] [address] XRay Report Signed Patient: Mary Leal MR#: [id number] 863 : 1970 Acct:[id number] Age/Sex: 54 / F ADM Date: 10/10/24 Loc: [facility] Room: Type: [facility] Attending Dr: Anibal Medrano DO Copies to: [...] Howie Garcia M.D.10/10/2024 3:58 PM Dictation Location: [place] [address] Transcribed By: MARIO 10/10/241557 Dictated By: Howie Garcia II, MD 10/10/241554 Signed By: 10/10/241557 Normal [facility] Urinalysis macro (dipstick) panel (U)on 09-04-2024 Bilirubin, UA Negative Negative - 4(70) +++ mg/dL [facility] Blood, UA Negative Negative - 50 Devin/mcL [facility] Clarity, UA Clear [facility] Color, UA Yellow [facility] Glucose, UA Negative Negative - 2000(110) ++++ mg/dL [facility] Ketones, UA Negative Negative - 160(16) ++++ mg/dL [facility] Leukocytes, UA Negative Negative - 500+++ Aicha/mcL [facility] Nitrite, UA Negative Negative - Positive [facility] pH, UA 5 5 - 9 [facility] Protein, UA Negative Negative - 2000(20) ++++ mg/dL [facility] Spec Grav, UA 1.01 1 - 1.03 [facility] Urobilinogen, UA 0.2 0.2 - 12 mg/dL [facility] US ABDOMEN LIMITEDon 024 US ABDOMEN [...] report is generated using voice recognition reporting (Schmoozer). On occasion PowerScribe erroneously drops words from the report or replaces the spoken word with similar sounding words. Please call with any questions/concerns regarding this report.* Dictated and transcribed 08/28/2024/tm This report has been electronically signed and approved by the interpreting radiologist. Electronically Signed Dipti Lockhart II, M.D. 2024-08-28 16:38:48 Normal Not Available Follow-Upon 07-26-2024 Follow-Up [id number] Darrian Leal en 1970 F Date Provider Department Center 07/26/2024 [facility] SLEEP [facility] No family history on file Level of Service:07491 CT OFFICE/OUTPATIENT ESTABLISHED MOD MDM 30 MIN Reason for Visit and Comments: Follow-up [285981] - Inspire initiation Normal [facility] US ABDOMEN LIMITEDon 024 US ABDOMEN [...] report is generated using voice recognition reporting (Schmoozer). On occasion PowerScribe erroneously drops words from [...] appointment to 07/26 at 10:00 am. Normal [facility] Telephoneon 07-12-2024 Telephone [id number] Darrian Leal en 1970 F Date Provider Department [place] 07/12/2024 [facility] No family history on file Reason for Visit and Comments: Reschedule [709] [facility] 36on 06-17-2024 36 Rescheduled cancelle d Inspire follow up appointment for 06/26 at 9:[address] [facility] 29on 04-28-2024 29 Encounter addended b y: Dick Mann MD on: 05/07/2024 7:26 PM Actions taken: Charge Capture section accepted [facility] Documentationon 04-17-2024 Documentation [id number] Darrian Leal en 1970 Date [facility] Department [place] 04/17/202402242-VABXRADHA [facility] Gerardo Heal No family history on file [facility] Letter (Out)on 04-17-2024 Letter (Out) [id number] Darrian Leal en 1970 Date Provider Department [place] 04/17/202418624-DGKHRADHA [facility] Gerardo Heal No family history on file [facility] DIAGNOSTIC UPPER ENDOSCOPYon 04-12-2024 [facility] Patient Name: Mary Leal Procedure Date: 04/12/2024 11:46 AM Date of : 1970 Admit Type: Outpatient Age: 53 Room: [facility] 3 Gender: Female Note Status: Finalized Attending MD: Milagros Franco MD, PHD, [id number] Procedure: Upper GI endoscopy Attending Participation: I personally performed the entire procedure. Indications: Dysphagia, Heartburn Providers: Milagros Franco MD, PHD (Doctor), Stacie Johns RN (Nurse), Nawaf Pinzon, Safety Representative (Safety Representative), Everett Maria APRN-BECCA (Anesthesia Staff) Referring MD: [...] verified by the physician, the nurse, the health promotion educator and the lead quality technician in the procedure room. Mental Status [...] oxygen saturations were monitored continuously. The Endoscope ([id number]) was introduced through the mouth, and advanced [...] examined (more content not included)... LAB, [facility] Radiology Study observation (narrative) [facility] SURG PATH REQUESTon 04-12-20 Case Report [facility] Comment on above: Result Comment: Surg ical Pathology Report Case: [id number] Authorizing Provider: Milagros Franco MD, Collected: 04/12/2024 12:48 PM PhD Ordering Location: Endoscopy Outpatient Care Received: 04/12/2024 12:57 PM [facility] Pathologist: Manish Tom MD Specimens: A) - TISSUE, gastric biopsy r/o HP evaluate for eosiniphils (large forceps) B) - TISSUE, GE Junction r/o Barrets (large forceps) Performed By: #### S URGP #### [facility] (DEFAULT) [address] [address] Clinical History Preop Diagnosis: [place] Grade D esophagitis [K20.80]. Early satiety [R68.81]. Unintentional weight loss [R63.4]. Gastroparesis [K31.84]. Medical History: Gastroesophageal reflux disease. Asthma. Benign essential hypertension. History of colectomy. Gastroparesis. Arthritis. Depression. Migraine. Constipation. Normal [facility] Comment on above: Performed By: #### S URGP #### [facility] (DEFAULT) [address] [place] [address] Gross Description [facility] Comment on above: Result Comment: The specimens [...] dimension. TE 1 Lab Use Only: JobID [id number] Grosser for this case was: Adriana Maradiaga Performed By: #### S URGP #### [facility] (DEFAULT) [address] [place] [address] Microscopic Description A microscopic examination was performed. [facility] Comment on above: Performed By: #### S URGP #### [facility] (DEFAULT) [address] [place] [address] Pathologic Diagnosis [facility] Comment on above: Result Comment: A. S tomach, biopsy: Active erosive esophagitis. No Helicobacter pylori organisms identified. B. GE junction, biopsy: Gastroesophageal squamocolumnar junctional mucosa with reflux pattern of injury. No Vega's specialized columnar epithelium (intestinal metaplasia) identified. Performed By: #### S URGP #### [facility] (DEFAULT) [address] [place] [id number] Professional Interpretation Performed at: [facility] Comment on above: Result Comment: [facility] For Immediate Release to Patient's Roberts Chapelt? Yes [address] [place] [address] Performed By: #### S URGP #### [facility] (DEFAULT) [address] [place] [address] 36on 04-10-2024 36 Left voicemail to [facility] to schedule Inspire follow up appointment following sleep study on 04/28. Offered 06/05 at 8:30 am or 4:00 pm OR 06/12 at 8:30 am. Normal [facility] Telephoneon 04-10-2024 Telephone [id number] Darrian Leal en 1970 F Date Provider Department Center 04/10/2024 [facility] No family history on file Reason for Visit and Comments: Appointment [375] Normal [facility] Follow-Upon 04-03-2024 Follow-Up [id number] Darrian Leal en 1970 F Date Provider Department [place] 04/03/2024 [facility] No family history on file Level of Service:13476 CT OFFICE/OUTPATIENT ESTABLISHED MOD MDM 30 MIN Reason for Visit and Comments: Follow-up [651798] - Pt has the Inspire and is here for a follow up. She states it is unbelievable how well it is working for her. She is sleeping through the night, which she hasn't done for years. She is here for a few small adjustments, such as moving it from 6 hours of sleep a night to 8. Normal [facility] CBC AND ELECTRONIC DIFFon Basophils (Bld) [#/Vol] 0.04 10*3/uL Normal 0.00-0.15 [facility] Comment on above: Performed By: #### L AB980 #### [facility] (DEFAULT) [address] [address] Basophils/100 WBC (Bld) 0.6 % Normal [facility] Comment on above: Performed By: #### L AB980 #### [facility] (DEFAULT) [address] [address] DIFF STATUS Electronic Differential Normal [facility] Comment on above: Performed By: #### L AB980 #### [facility] (DEFAULT) [address] [address] Eosinophils (Bld) [#/Vol] 0.08 10*3/uL Normal 0.00-0.42 [facility] Comment on above: Performed By: #### L AB980 #### [facility] (DEFAULT) [address] [place] [address] Eosinophils/100 WBC (Bld) 1.2 % Normal [facility] Comment on above: Performed By: #### L AB980 #### [facility] (DEFAULT) [address] [place] [address] Hematocrit (Bld) [Volume fraction] 40.1 % Normal 34.9-44.3 [facility] Comment on above: Performed By: #### L AB980 #### [facility] (DEFAULT) [address] [address] Hemoglobin (Bld) [Mass/Vol] 12.6 g/dL Normal 11.4-15.2 [facility] Comment on above: Performed By: #### L AB980 #### [facility] (DEFAULT) [address] [address] Immature Grans % 0.5 % Normal [facility] Comment on above: Performed By: #### L AB980 #### [facility] (DEFAULT) [address] [address] Immature Grans Absolute < Normal <=0.08 [facility] Comment on above: Performed By: #### L AB980 #### [facility] (DEFAULT) [address] Lymphocytes (Bld) [#/Vol] 2.05 10*3/uL Normal 1.16-3.51 [facility] Comment on above: Performed By: #### L AB980 #### [facility] (DEFAULT) [address] [address] Lymphocytes/100 WBC (Bld) 31.6 % Normal [facility] Comment on above: Performed By: #### L AB980 #### [facility] (DEFAULT) [address] [place] [address] MCV (RBC) [Entitic vol] 86.6 fL Normal 79.6-97.7 [facility] Comment on above: Performed By: #### L AB980 #### [facility] (DEFAULT) [address] [address] Mean Cell Hgb 27.2 pg Normal 25.9-33.9 [facility] Comment on above: Performed By: #### L AB980 #### [facility] (DEFAULT) [address] [address] Mean Cell Hgb Conc 31.4 g/dL Normal 31.4-35.9 [facility] Comment on above: Performed By: #### L AB980 #### [facility] (DEFAULT) [address] [address] Monocytes (Bld) [#/Vol] 0.47 10*3/uL Normal 0.22-0.87 [facility] Comment on above: Performed By: #### L AB980 #### [facility] (DEFAULT) [address] [address] Monocytes/100 WBC (Bld) 7.3 % Normal [facility] Comment on above: Performed By: #### L AB980 #### [facility] (DEFAULT) [address] [address] Nucleated RBC 0.0 /100 WBC Normal <=0.2 [facility] Comment on above: Performed By: #### L AB980 #### [facility] (DEFAULT) [address] [address] Platelet mean volume (Bld) [Entitic vol] 9.3 fL Normal 8.5-12.2 [facility] Comment on above: Performed By: #### L AB980 #### [facility] (DEFAULT) [address] [address] Platelets (Bld) [#/Vol] 370 10*3/uL Normal 150-393 [facility] Comment on above: Performed By: #### L AB980 #### [facility] (DEFAULT) [address] [place] [address] RBC (Bld) [#/Vol] 4.63 10*6/uL Normal 3.91-5.04 [facility] Comment on above: Performed By: #### L AB980 #### [facility] (DEFAULT) [address] [place] [address] RBC Distribution 14.0 % Normal 10.8-14.9 [facility] Comment on above: Performed By: #### L AB980 #### [facility] (DEFAULT) [address] [place] [address] Segs + Bands Auto 58.8 % Normal [facility] Comment on above: Performed By: #### L AB980 #### [facility] (DEFAULT) [address] [address] Segs + Bands,Absolute Auto 3.81 K/uL Normal 1.64-7.28 [facility] Comment on above: Performed By: #### L AB980 #### [facility] (DEFAULT) [address] [place] [address] WBC (Bld) [#/Vol] 6.48 10*3/uL Normal 3.99-11.19 [facility] Comment on above: Performed By: #### L AB980 #### [facility] (DEFAULT) [address] [address] FERRITINon 03-06-2024 Ferritin [Mass/Vol] 9.1 ng/mL Normal 7.3-270.7 [facility] Comment on above: Performed By: #### F ERIB, TSHQR #### [facility] (DEFAULT) [address] [address] HEPATIC FUNCTION PANELon Albumin [Mass/Vol] 4.3 g/dL Normal 3.5-5.0 [facility] Comment on above: Performed By: #### H FP, IRBC #### [facility] (DEFAULT) [address] [address] ALP [Catalytic activity/Vol] 87 U/L Normal 32-126 [facility] Comment on above: Performed By: #### Sukumar BATES, IRBC #### [facility] (DEFAULT) [address] [place] [address] ALT [Catalytic activity/Vol] 28 U/L Normal 9-48 [facility] Comment on above: Performed By: #### Sukumar BATES, IRBC #### [facility] (DEFAULT) [address] [place] [address] AST [Catalytic activity/Vol] 27 U/L Normal 10-39 [facility] Comment on above: Performed By: #### Sukumar BATES, IRBC #### [facility] (DEFAULT) [address] [place] [address] Bilirubin [Mass/Vol] 0.4 mg/dL Normal <1.5 [facility] Comment on above: Performed By: #### Sukumar BATES, IRBC #### [facility] (DEFAULT) [address] [place] [address] Bilirubin.indirect [Mass/Vol] 0.1 mg/dL Normal <0.3 [facility] Comment on above: Performed By: #### Sukumar BATES, IRBC #### [facility] (DEFAULT) [address] [place] [address] Protein [Mass/Vol] 6.9 g/dL Normal 6.4-8.3 [facility] Comment on above: Performed By: #### Sukumar BATES, IRBC #### [facility] (DEFAULT) [address] [place] [address] IRON/IRON BINDING/TRANSFERRI Non 03-06-2024 Iron [Mass/Vol] 55 ug/dL Normal 40-174 [facility] Comment on above: Performed By: #### Sukumar BATES, IRBC #### [facility] (DEFAULT) [address] [place] [address] Iron Saturation 13 % Low 20-55 [facility] Comment on above: Performed By: #### H FP, IRBC #### [facility] (DEFAULT) [address] [address] Total Iron Binding Capacity 440 mcg/dL High 250-425 [facility] Comment on above: Performed By: #### H FP, IRBC #### [facility] (DEFAULT) [address] [address] Transferrin [Mass/Vol] 352 mg/dL Normal 200-400 [facility] Comment on above: Performed By: #### H FP, IRBC #### [facility] (DEFAULT) [address] [address] MOLECULAR STOOL PARASITE GUEVARA [place] 03-06-2024 Cryptosporidium Parvum/Hominis By Pcr Negative Normal Negative [facility] Comment on above: Order Comment: Colle [...] Performed By: #### S CPBP #### [facility] (DEFAULT) [address] [address] Entamoeba Histolytica By Pcr Negative Normal Negative [facility] Comment on above: Order Comment: Colle [...] Performed By: #### S CPBP #### [facility] (DEFAULT) [address] [address] Giardia Lamblia By Pcr Negative Normal Negative [facility] Comment on above: Order Comment: Colle [...] Performed By: #### S CPBP #### [facility] (DEFAULT) [address] [address] TSH W/FT4 REFLEXon TSH 1.986 uIU/mL Normal 0.550-4.780 [facility] Comment on above: Performed By: #### F ERIB, TSHQR #### [facility] (DEFAULT) [address] [address] VITAMIN D (25-HYDROXY,TOTAL) on 03-06-2024 25-OH Vitamin D Total 22.2 ng/mL Low 30.0-100.0 [facility] Comment on above: Order Comment: Vitam in D values have been shown to be falsely decreased in lipemic samples and should be interpreted with caution. Result Comment: <10 Deficiency 10-29 Insufficiency 30-100 Optimal Level >100 Possible Toxicity Performed By: #### D 25OH #### [facility] (DEFAULT) [address] [place] [address] BACTERIAL VAGINOSIS NAATon 0 02-27-2024 Interpretation and review of laboratory results Normal [facility] Lactobacillus crispatus+gasseri+riri senii + Gardnerella vaginalis + Atopobium vaginae rRNA JOSÉ MIGUEL+probe Ql (Vag fld) Negative Negative for bacterial vaginosis [facility] Lactobacillus crispatus+gasseri+riri senii + Gardnerella vaginalis + Atopobium vaginae rRNA JOSÉ MIGUEL+probe Ql (Vag fld) Negative Normal Negative for bacterial vaginosis [facility] Comment on above: Order Comment: Speci men Type: SWABOrdering Facility: [facility] Address: [address] [place] [address] Performed By: #### B VAMP, CVTV ####[facility] LABCLIA [id number] [place] [address], [place] [address] [place] BETY/TRICHOMONAS NAATon 0 02-27-2024 C. glabrata RNA JOSÉ MIGUEL+probe Ql (Vag fld) Negative Negative for Bety glabrata [facility] Bety sp DNA JOSÉ MIGUEL+probe Ql (Vag fld) Negative Negative for Bety species [facility] Interpretation and review of laboratory results Normal [facility] T. vaginalis DNA JOSÉ MIGUEL+probe Ql (Unsp spec) Negative Negative for Trichomonas vaginalis by amplification [facility] C. glabrata RNA JOSÉ MIGUEL+probe Ql (Vag fld) Negative Normal Negative for Bety glabrata [facility] Comment on above: Order Comment: Speci men Type: SWABOrdering Facility: [facility] Address: [address] [place] [address] Performed By: #### B VAMP, CVTV ####[facility] LABCLIA [id number] [address] STATES [facility] Bety sp DNA JOSÉ MIGUEL+probe Ql (Vag fld) Negative Normal Negative for Bety species [facility] Comment on above: Order Comment: Speci men Type: SWABOrdering Facility: [facility] Address: [address] [place] [address] Performed By: #### B VAMP, CVTV ####[facility] LABCLIA [id number] [address] [place] T. vaginalis DNA JOSÉ MIGUEL+probe Ql (Unsp spec) Negative Normal Negative for Trichomonas vaginalis by amplification [facility] Comment on above: Order Comment: Speci men Type: SWABOrdering Facility: [facility] Address: [address] [place] [address] Performed By: #### B VAMP, CVTV ####[facility] LABCLIA [id number] [place] [address] [place] CNOVon 02-27-2024 CNOV Office Visit (SHERON ) MRAY LEAL ([id number]) 1970 F Date Time Provider Department 02/27/24 10:00 AM FLOWER LOPEZ During your visit today, we recorded the following information about you: Pulse Blood pressure Weight Height 62/minute 146/93 69.9 kg 1.626 m Flower Lopez APRN.AIR TUCKER 02/27/2024 10:40 AM Signed Female Pelvic Medicine [...] intermittently- somewhat improved. She has worked with [employer] rep re: interstim setting, now on program [...] you received about pain medications helpful? 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 Normal [facility] UA DIP, URINE (POC)on 2023 BILIRUBIN UA (POCT) Negative Negative [facility] CLARITY UA (POCT) Clear [facility] COLOR UA (POCT) Yellow [facility] GLUCOSE UA (POCT) Negative Negative mg/dL [facility] Hemoglobin Ql (U) Negative Negative [facility] KETONE UA (POCT) Negative Negative mg/dL [facility] LEUKOCYTES UA (POCT) Negative Negative [facility] NITRITE UA (POCT) Negative Negative [facility] PH UA (POCT) 5.5 4.5 - 8.0 [facility] Protein Ql (U) Negative Negative mg/dL [facility] SPECIFIC GRAVITY UA (POCT) >=1.030 1.005 - 1.030 [facility] UROBILINOGEN UA (POCT) 0.2 Normal E.U./dL [facility] Location:[facility], [address] [place] [address], [address] [place] [address] POINT OF CARE [facility] 29on 02-07-2024 29 Addended by: NATHANAEL MENDOZA on: 02/07/2024 12:01 PM Modules accepted: Orders Normal [facility] Follow-Upon 02-07-2024 Follow-Up [id number] Darrian Leal 1970 F Date Provider Department Center 02/07/2024 PAULINE SANTACRUZ [facility] SLEEP [facility] No family history on file Level of Service:38405 CT OFFICE/OUTPATIENT ESTABLISHED HIGH MDM 40 MIN Reason for Visit and Comments: Follow-up [490339] - Pt is here to activate her [employer] PAP. [facility] Hussain 01-27-2024 CNPN Telephone (GYNMN) ELVISMARY Zoya ([id number]) 1970 F Date Time Provider Department 01/27/24 RADHA DUNHAM GYNSOFEI During your visit today, we recorded the following information about you: Radha Dunham MD 01/27/2024 10:54 AM Signed Police Or Patrol Park Officer Resident Telephone Encounter 01/27/2024 10:44 AM Call [...] Discussed with Dr. Mullins, Urogyn fellow physician recreation program specialist. Radha Dunham MD Obstetrics and Gynecology, PGY1 [...] PM Signed Received fax regarding letter from [facility] stating that on 01/29/24 the patient reported that they felt a zapping sensation in their rectal nerve . Asking that provider answer questions listed on document. Document scanned into [employer]. Thanks, Lili Montano RN 03/15/2024 11:27 AM Signed Called pt. Verified name/ Verified requested information and form faxed to [employer] @ [phone] Lili Matias RN March 15, 2024 11:27 [...] idiopathic cons (more content not included)... Normal [facility] ANES POSTPROC EVALon 024 ANES POSTPROC EVAL HNO ID: [id number] Author: BONI MURILLO MD Service: ? Author Type: Anesthesiologist Type: Anesthesia Postprocedure Evaluation Filed: 01/26/2024 09:51 Note Text: POST ANESTHESIA EVALUATION NOTE : 1970 Procedure Summary Date: 01/26/24 Room / Location: [address] Anesthesia Start: 727 Anesthesia Stop: 899 Procedures: [...] January 26, 2024 TIME: 9:51 AM CSN: [id number] Normal [facility] ANES PRE-OPon 01-26-2024 ANES PRE-OP HNO ID: [id number] Author: BONI MURILLO MD Service: ? Author [...] January 26, 2024 TIME: 7:06 AM CSN: [id number] Normal [facility] BRIEF OP NOTon 01-26-2024 BRIEF OP NOT HNO ID: [id number] Author: SOFIYA MULLINS MD Service: Urogynecology Author Type: Fellow Type: Brief Op Note Filed: 01/26/2024 08:44 Note Text: BRIEF OPERATIVE / PROCEDURE NOTE LOG ID: [id number] Surgery/Procedure Date: 01/26/2024 Incision/Procedure Start Time: 7:54 AM Incision Close/Procedure End Time: 8:36 AM Surgeon(s)/Procedurali st(s) and Customer Advocacy Manager(s): Surgeon(s) and Role: * Pam Wang MD [...] Implant Name Type Inv. Item Serial No. Fence Installer Lot No. LRB No. Used Action LEAD INTRSTIM MRI 28CM - [id number] Lead LEAD INTRSTIM MRI 28CM [employer] [id number] Left 1 Implanted INTERSTIM X RECHARGE FREE NEUROSTIMULATOR - [id number] Stimulator INTERSTIM X RECHARGE FREE NEUROSTIMULATOR [id number] [employer] Left 1 Implanted Pre-Op/Pre-Procedure Diagnosis: urinary retention, urgency, frequency and nocturia Post-Op/Post-Procedure Diagnosis: same SIGNATURE: Sofiya Mullins MD DATE: January 26, 2024 PATIENT NAME: Mary Leal TIME: 8:42 AM PAGER/CONTACT #: Pager [phone] Normal [facility] HISTORY PHYSICALon HISTORY PHYSICAL HNO ID: [id number] Author: SOFIYA MULLINS MD Service: Urogynecology Author [...] VTE Prophylaxis/An (more content not included)... Normal [facility] NURSING PROGon 01-26-2024 NURSING PROG HNO ID: [id number] Author: DAI CAMPUZANO RN Service: Nursing Author Type: Registered Nurse Type: Nursing Progress Note Filed: 01/26/2024 09:51 Note Text: 0923 Paged PACU Resident M22-30 Elvis- Could you please place an order for a one time dose of her homegoing oxycodone prescription? Dai GAMBINO [id number] 0949 Paged PACU Resident M22-30 Elvis- Could you please place an order for a one time dose of her homegoing oxycodone prescription? Dai GAMBINO [id number] Normal [facility] NURSING PROG HNO ID: [id number] Author: CATRACHO PIERRE RN Service: ? 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 Thanks, Catracho [phone] This note was completed by: Catracho Pierre [facility] OPERATIVE NOon 01-26-2024 OPERATIVE NO HNO ID: [id number] Author: PAM WANG MD Service: Urogynecology Author Type: Physician Type: Operative Report Filed: 01/29/2024 10:50 Note Text: OPERATIVE/PROCEDURE REPORT LOG ID: [id number] Surgery/Procedure Date: 01/26/2024 Incision/Procedure Start Time: 7:54 AM Incision Close/Procedure End Time: 8:36 AM Surgeon(s)/Procedurali st(s) and Customer Advocacy Manager(s): Surgeon(s) and Role: * Pam Wang MD [...] Implant Name Type Inv. Item Serial No. Fence Installer Lot No. LRB No. Used Action LEAD INTRSTIM MRI 28CM - [id number] Lead LEAD INTRSTIM MRI 28CM [employer] [id number] Left 1 Implanted INTERSTIM X RECHARGE FREE NEUROSTIMULATOR - [id number] Stimulator INTERSTIM X RECHARGE FREE NEUROSTIMULATOR [id number] [employer] Left 1 Implanted Pre-Op/Pre-Procedure Diagnosis: [...] the S3 foramen until the marker was longterm through the bone. The sacral lead was [...] response: Electrode 0 1 2 3 Anal Ima - + + + Flexion of Great [...] and impedances (more content not included)... Normal [facility] HISTORY PHYSICALon HISTORY PHYSICAL HNO ID: [id number] Author: MAX MARROQUIN PA-C Service: ? Author Type: Physician Customer Advocacy Manager Type: H&P Filed: 01/25/2024 09:25 Note Text: PREANESTHESIA CONSULT CLINIC TELEHEALTH VISIT SERVICE DATE: 01/25/2024 SERVICE TIME: 9:02 AM Patient has been identified by name and date of : Yes Reason for contact: PACC visit Accompanied by: Self This is a virtual visit using [employer] Zoom Video Visit. It required patient-provider interaction for the medical decision making as documented below. I have communicated my name and active licensure. The patient's identity and physical location were verified at the time of this visit. Either the patient or their legal advertising account representative has been informed of the [...] using inspire to get activated 02/07/2024 ) [id number] Score: Age: <65 Sex: female CHF history: No Hypertension history: Yes Stroke/TIA/thromboembo lism history: No Vascular disease history: No Diabetes history: No [id number] Score: 2 ANESTHESIA FINDINGS: Intubation History: No [...] PAST SURGICAL HIST (more content not included)... [facility] Hussain 12-25-2023 [facility] Telephone (GYNMN) MARY LEAL ([id number]) 1970 F Date Time Provider Department 12/25/23 PAM WANG GYNMN During your visit today, we recorded the following information about you: [facility] 12/25/2023 2:54 PM Signed Reason for call: [...] distance health visit in this department: 10/25/2021 [employer] Terminal, Nurse Next visit in this department: 01/25/2024 [...] 12/25/23 Normal [facility] Basic Metabolic Panelon - Anion gap [Moles/Vol] 6 mmol/L 5 - 15 mmol/L [facility] Calcium [Mass/Vol] 9.3 mg/dL 8.5 - 10. 5 mg/dL [facility] Chloride [Moles/Vol] 105 mmol/L 98 - 10 9 mmol/L [facility] CO2 [Moles/Vol] 28 mmol/L 22 - 32 mmol/L [facility] Creatinine [Mass/Vol] 0.60 mg/dL 0.40 - 1.00 mg/dL [facility] Comment on above: METHOD TRACEABLE TO IDMS STANDARD eGFR (CKD-EPI)non-race dependent - PINF [facility] Comment on above: Reported eGFR is based on the CKD-EPI 2020 equation that does not use a race coefficient. Glucose [Mass/Vol] 85 mg/dL 65 - 99 mg/dL [facility] Potassium [Moles/Vol] 4.2 mmol/L 3.5 - 5.0 mmol/L [facility] Sodium [Moles/Vol] 139 mmol/L 134 - 146 mmol/L [facility] Urea nitrogen [Mass/Vol] 14 mg/dL 5 - 23 mg/dL [facility] CNPNon 11-27-2023 CNPN Telephone (WCTRMN) MARY LEAL ([id number]) 1970 F Date Time Provider Department 11/27/23 PAM WANG TRMN During your visit today, we recorded the following information about you: Amber Trimble 11/27/2023 9:32 AM Signed Patient: Mary D Elvis : 1970 Provider: Pam Wang MD Caller Phone #: [phone] (home) [phone] (cell) Reason for call: boyfriend pulled out [...] PNE stimulator stopped connecting so Kim of [employer] said to remove it. She removed the [...] urge [N39.41] Order(s):SURGICAL REQUEST - ELECTIVE (06/2020) [[id number]] Order #: [id number]: 1 Prescriptions as of 11/27/2023 - ARIPiprazole [...] Encounter Status:Closed by PAM WANG on 11/27/23 [facility] 11-25-2023 CNPN Telephone (GYNMN) ELVISMARY Zoya ([id number]) 1970 F Date Time Provider Department 11/25/23 RADHA DUNHAM During your visit today, we recorded the following information about you: Radha Dunham MD 11/25/2023 2:43 PM Signed Police Or Patrol Park Officer Resident Telephone Encounter 11/25/2023 2:40 PM Call [...] adequately. Discussed with Dr. Mullins, Urogyn fellow recreation program specialist. Radha Dunham MD Obstetrics and Gynecology, PGY1 [...] Encounter Status:Closed by RADHA DUNHAM on 11/25/23 [facility] Teodoro 11-21-2023 CNCHELITA Office Visit (SHERON ) MARY LEAL ([id number]) 1970 F Date Time Provider Department 11/21/23 [...] Voiding dysfunction [N39.8] Order(s):UA DIP, URINE (POC) [[id number]] Order #: [id number]. #:[id number] [] ondansetron orally disintegrating 4 mg tab(s) [...] included)... Normal [facility] CNOVon 10-10-2023 CNOV Office Visit (SHERON ) ELVISMARY ([id number]) 1970 F Date Time Provider Department 10/10/23 [...] PFSH obtained by others. Pam Wang MD Wire Drawing Machine Operator offered: Patient declines. OBJECTIVE: BP 102/60 General: [...] would like to move forward with PNE. [employer] packet given to patient today to review. [...] which included preparing to see the patient, [id number] patient care, completing clinical (more content not included)... Normal [facility] 09-12-2023 CNPN Telephone (WHQ) ELVISMARY Zoya ([id number]) 1970 F Date Time Provider Department 09/12/23 [...] which included preparing to see the patient, [id number] patient care, completing clinical documentation, obtaining and/or [...] Office will call to schedule cystoscopy. Urogynecology [facility] Main provided: Pam Wang Staff [...] Diagnosis:History of suburethral sling procedure [Z98.890] Order(s):CYSTOSCOPY [facility] [[id number]] Order #: [id number] Prescriptions as of 09/12/2023 - atenolol (TENORMIN) [...] included)... Normal [facility] CNOVon 09-11-2023 CNOV Office Visit (UROSMN ) ELVISMARY ([id number]) 1970 F Date Time Provider Department 09/11/23 [...] Jenifer Barry RN 09/11/2023 11:37 AM Signed [facility] URODYNAMICS LAB URODYNAMIC [...] allergy: No Females- Is patient : No Wire Drawing Machine Operator offered:Patient declines B/O UA: YES DIP: UROFLOWMETRY [...] Jairon Lai MD 09/11/2023 1:18 PM Signed [facility] C[facility] FOR FEMALE [...] Jairon Lai MD Referring Provider: PAM WANG [[id number]] Allergies As of Date: 09/11/2023 Noted Allergy [...] included)... Normal [facility] BASIC METABOLIC PANELon 10-0 Anion gap [Moles/Vol] 1 mmol/L Low 8-12 [facility] Comment on above: Performed By: #### 4 [id number], [id number], [id number], [id number] #### [address] [place] [address] [place] Calcium [Mass/Vol] 9.2 mg/dL Normal 8.4-10.4 [facility] Comment on above: Performed By: #### 4 [id number], [id number], [id number], [id number] #### [address] [place] [address] [place] Chloride [Moles/Vol] 105 mmol/L Normal 96-109 [facility] Comment on above: Performed By: #### 4 [id number], [id number], [id number], [id number] #### [address] [place] [address] [place] CO2 [Moles/Vol] 32 mmol/L High 22-30 [facility] Comment on above: Performed By: #### 4 [id number], [id number], [id number], [id number] #### [address] [place] [address] [place] Creatinine [Mass/Vol] 0.67 mg/dL Normal 0.52-1.04 [facility] Comment on above: Performed By: #### 4 [id number], [id number], [id number], [id number] #### [address] [address] [place] GLOMERULAR FILTRATION RATE ML/MIN/1.73 SQ M.PREDICTED >90.0 Normal >=60.0 [facility] Comment on above: Result [...] Kidney Int Suppl.2013;3:1-150 Performed By: #### 4 [id number], [id number], [id number], [id number] #### [address] [address] [place] Glucose [Mass/Vol] 104 mg/dL High 65-100 [facility] Comment on above: Performed By: #### 4 [id number], [id number], [id number], [id number] #### [address] [place] [address] [place] Potassium [Moles/Vol] 4.6 mmol/L Normal 3.6-5.1 [facility] Comment on above: Performed By: #### 4 [id number], [id number], [id number], [id number] #### [address] [place] [address] [place] Sodium [Moles/Vol] 138 mmol/L Normal 135-147 [facility] Comment on above: Performed By: #### 4 [id number], [id number], [id number], [id number] #### [address] [place] [address] [place] Urea nitrogen [Mass/Vol] 16 mg/dL Normal 8-26 [facility] [employer] [facility] Comment on above: Performed By: #### Sandra [id number], [id number], [id number], [id number] #### [address] Basic metabolic panel aka Ch em 8on 08-12-2023 Anion gap [Moles/Vol] 1 mmol/L Low 8 - 12 mmol/L [facility] Calcium [Mass/Vol] 9.2 mg/dL 8.4 - 10. 4 mg/dL [facility] Calcium hydrogen phosphate dihydrate crystals LM Ql (Urine sed) 16 mg/dL 8 - 26 mg/dL [facility] Chloride [Moles/Vol] 105 mmol/L 96 - 10 9 mmol/L [facility] CO2 (BldMV) [Moles/Vol] 32 mmol/L High 22 - 30 mmol/L [facility] Creatinine [Mass/Vol] 0.67 mg/dL 0.52 - 1.04 mg/dL [facility] GFR/1.73 sq M.predicted MDRD (S/P/Bld) [Vol rate/[facility]] [facility] Comment on above: eGFR calculation bas [...] mg/dL High 65 - 100 mg/dL [facility] Interpretation and review of laboratory results Abnormal [facility] Potassium [Moles/Vol] 4.6 mmol/L 3.6 - 5.1 mmol/L [facility] Sodium [Moles/Vol] 138 mmol/L 135 - 147 mmol/L [facility] CBC AND DIFFERENTIALon 08-12 ABSOLUTE BASOPHIL 0.0 x10*3/uL Normal 0.0-0.1 [facility] Comment on above: Performed By: #### 4 [id number] #### [facility] [address] ABSOLUTE EOSINOPHIL 0.1 x10*3/uL Normal 0.1-0.3 [facility] Comment on above: Performed By: #### 4 [id number] #### [address] ABSOLUTE IMMATURE GRANULOCYTES 0.0 x10*3/uL Normal 0.0-0.1 [facility] Comment on above: Performed By: #### 4 [id number] #### [address] ABSOLUTE LYMPH 1.6 x10*3/uL Normal 1.2-3.3 [facility] Comment on above: Performed By: #### 4 [id number] #### [address] ABSOLUTE MONO 0.3 x10*3/uL Normal 0.2-0.6 [facility] Comment on above: Performed By: #### 4 [id number] #### [address] ABSOLUTE NEUTROPHIL 3.1 x10*3/uL Normal 2.4-6.6 [facility] Comment on above: Performed By: #### 4 [id number] #### [address] Basophils/100 WBC (Bld) 0.8 % Normal [facility] Comment on above: Performed By: #### 4 [id number] #### [address] Eosinophils/100 WBC (Bld) 2.7 % Normal [facility] Comment on above: Performed By: #### 4 [id number] #### [address] Erythrocyte distribution width (RBC) [Ratio] 13.0 % Normal 11.5-14.5 [facility] Comment on above: Performed By: #### 4 [id number] #### [address] Hematocrit (Bld) [Volume fraction] 37.5 % Normal 33.6-46.8 [facility] Comment on above: Performed By: #### 4 [id number] #### [address] Hemoglobin (Bld) [Mass/Vol] 11.8 g/dL Normal 11.7-15.8 [facility] Comment on above: Performed By: #### 4 [id number] #### [address] Immature granulocytes/100 WBC (Bld) 0.4 % Normal [facility] Comment on above: Performed By: #### 4 [id number] #### [address] Lymphocytes/100 WBC (Bld) 31.5 % Normal [facility] Comment on above: Performed By: #### 4 [id number] #### [address] MCH (RBC) [Entitic mass] 26.5 pg Low 27.5-32.3 [facility] Comment on above: Performed By: #### 4 [id number] #### [address] MCHC (RBC) [Mass/Vol] 31.5 g/dL Normal 30.7-35.5 [facility] Comment on above: Performed By: #### 4 [id number] #### [address] MCV (RBC) [Entitic vol] 84.3 fL Normal 80.2-99 [facility] Comment on above: Performed By: #### 4 [id number] #### [address] Monocytes/100 WBC (Bld) 5.4 % Normal [facility] Comment on above: Performed By: #### 4 [id number] #### [address] Neutrophils/100 WBC (Bld) 59.2 % Normal [facility] Comment on above: Performed By: #### 4 [id number] #### [address] NUCLEATED RED BLOOD CELLS AUTO 0.0 % Normal 0.0-1.0 [facility] Comment on above: Performed By: #### 4 [id number] #### [address] PLATELET COUNT 299 x10*3/uL Normal 150-400 [facility] Comment on above: Performed By: #### 4 [id number] #### [address] RED BLOOD CELL COUNT 4.45 x10*6/uL Normal 3.60-5.20 [facility] Comment on above: Performed By: #### 4 [id number] #### [address] WHITE BLOOD CELLS 5.2 x10*3/uL Normal 4.3-10.3 [facility] Comment on above: Performed By: #### 4 [id number] #### [address] CBC with differentialOrdered By: Background Lab on 08-12-2023 Absolute Immature Granulocytes 0.0 [facility] Age [Time] 84.3 fL 80.2 - 99 fL [facility] Age [Time] 26.5 pg Low 27.5 - 32.3 pg [facility] Age [Time] 31.5 g/dL 30.7 - 35.5 g/dL [facility] B. burgdorferi IgM IB Ql (CSF) 31.5 % [facility] Basophils (Bld) [#/Vol] 0.0 10*3/uL [facility] Basophils/100 WBC (Body fld) 0.8 % [facility] Eosinophils (Bld) [#/Vol] 1.6 10*3/uL [facility] Eosinophils (Bld) [#/Vol] 0.3 10*3/uL [facility] Eosinophils (Bld) [#/Vol] 0.1 10*3/uL [facility] Eosinophils/100 WBC (Bld) 2.7 % [facility] Erythrocyte distribution width (RBC) [Ratio] 13.0 % 11.5 - 14.5 % [facility] Hematocrit (Bld) [Volume fraction] 37.5 % 33.6 - 46.8 % [facility] Hexanoylglycine (U) [Moles/Vol] 11.8 g/dL 11.7 - 15.8 g/dL [facility] Immature granulocytes/100 WBC (Bld) 0.4 % [facility] Interpretation and review of laboratory results Abnormal [facility] Monocytes/100 WBC (Bld) 5.4 % [facility] Neurotensin (P) [Mass/Vol] 59.2 % [email or web address] Neutrophils (Bld) [#/Vol] 3.1 10*3/uL [email or web address] Nucleated RBC/100 WBC (Bld) [Ratio] 0.0 % 0.0 - 1.0 % [email or web address] Platelets (Bld) [#/Vol] 299 10*3/uL [email or web address] RBC (Bld) [#/Vol] 4.45 10*6/uL [employer] WBC (Bld) [#/Vol] 5.2 10*3/uL [employer] [facility] CT ABDOMEN PELVIS WITH IV CO [...] 20 RAC Omni 300 100 ml Normal [employer] [facility] HEPATIC FUNCTION PANELon Albumin [Mass/Vol] 4.0 g/dL Normal 3.5-5.0 [employer] Comment on above: Performed By: #### 4 [id number], [id number], [id number], [id number] #### [address] ALK PHOS 104 U/L Normal 24-126 [email or web address] Comment on above: Performed By: #### 4 [id number], 38723611, [id number], [id number] #### [address] ALT [Catalytic activity/Vol] 50 U/L High 4-35 [facility] Comment on above: Performed By: #### 4 [id number], [id number], 29292546, [id number] #### [address] AST [Catalytic activity/Vol] 59 U/L High 3-47 [facility] Comment on above: Performed By: #### 4 7145159, 53410765, 27483853, [id number] #### [address] Bilirubin [Mass/Vol] 0.1 mg/dL Low 0.2-1.6 [facility] Comment on above: Performed By: #### 4 [id number], 39855653, 72259205, [id number] #### [address] Bilirubin.indirect [Mass/Vol] 0.1 mg/dL Normal <=0.5 [facility] Comment on above: Performed By: #### 4 [id number], 78606610, [id number], [id number] #### [address] Protein [Mass/Vol] 6.6 g/dL Normal 6.3-8.2 [facility] Comment on above: Performed By: #### 4 [id number], 97975046, 35171252, [id number] #### [address] Hepatic Function Panelon Albumin (Syn fld) [Mass/Vol] 4.0 g/dL 3.5 - 5.0 g/dL [facility] Aldosterone (U) [Mass/Vol] 104 U/L 24 - 126 U/L [facility] ALT [Catalytic activity/Vol] 50 U/L High 4 - 35 U/L [facility] AST [Catalytic activity/Vol] 59 U/L High 3 - 47 U/L [facility] Bilirubin [Mass/Vol] 0.1 mg/dL Low 0.2 - 1 .6 mg/dL [facility] Bilirubin.conjugated [Mass/Vol] 0.1 mg/dL NINF - 0.5 mg/dL [facility] Protein [Mass/Vol] 6.6 g/dL 6.3 - 8.2 g/dL [facility] LIPASEon 08-12-2023 Lipase [Catalytic activity/Vol] 11 U/L Low 23-300 [facility] Comment on above: Performed By: #### 4 [id number], 47531421, [id number], [id number] #### [address] Lipaseon 08-12-2023 Lipase [Catalytic activity/Vol] 11 U/L Low 23 - 300 U/L [facility] No Panel Informationon 08-12 Extra Tube Hold for add-ons. [facility] Interpretation and review of laboratory results Abnormal [facility] POCT ED/FC/GSC Urine PregOrd ered By: Della Hays on 08-12-2023 Beta HCG ( test) Ql (U) Negative [facility] Interpretation and review of laboratory results Normal [facility] Group Home Worker Acceptable yes [facility] TROPONIN Ion 08-12-2023 Troponin I.cardiac [Mass/Vol] ng/mL Normal <=0.033 [facility] Comment on above: Result Comment: Nega tive: No detectable troponin-I. Performed By: #### 4 [id number] #### [address] TROPONIN I SERIESon 08-12-20 Troponin I.cardiac [Mass/Vol] ng/mL Normal <=0.033 [facility] Comment on above: Result Comment: Nega tive: No detectable troponin-I. Performed By: #### 4 [id number], [id number], [id number], [id number] #### [address] [place] [address] [place] Troponin I (One time)on Interpretation and review of laboratory results Normal [facility] Troponin I.cardiac [Mass/Vol] ng/mL NINF - 0.033 ng/mL [facility] Comment on above: Negative: No detectable troponin-I. [facility] Troponin I - Series (X 3)on 08-12-2023 Interpretation and review of laboratory results Normal [facility] Troponin I.cardiac [Mass/Vol] ng/mL NINF - 0.033 ng/mL [facility] Comment on above: Negative: No detectable troponin-I. [facility] URINALYSIS WITH REFLEX CULTU REon 08-12-2023 Appearance (U) Clear Normal [facility] Comment on above: Performed By: #### 4 [id number] #### [address] BILIRUBIN UA Negative Normal Negative [facility] Comment on above: Performed By: #### 4 [id number] #### [address] Color (U) Yellow Normal [facility] Comment on above: Performed By: #### 4 [id number] #### [address] Glucose Ql (U) Negative Normal Negative [facility] Comment on above: Performed By: #### 4 [id number] #### [address] Ketones Ql (U) Negative Normal Negative [facility] Comment on above: Performed By: #### 4 [id number] #### [address] LEUKOESTERASE Negative Normal Negative [facility] Comment on above: Performed By: #### 4 [id number] #### [address] MUCOUS-URINE Occasional Normal [facility] Comment on above: Performed By: #### 4 [id number] #### [address] Nitrite Ql (U) Negative Normal Negative [facility] Comment on above: Performed By: #### 4 [id number] #### [address] OCCULT BLD Negative Normal Negative [facility] Comment on above: Performed By: #### 4 [id number] #### [address] PH, URINE 5.0 Normal [facility] Comment on above: Performed By: #### 4 [id number] #### [address] Protein Ql (U) Negative Normal Negative [facility] Comment on above: Performed By: #### 4 [id number] #### [address] RBC LM.HPF (Urine sed) [#/Area] /[HPF] Normal <=5 [facility] Comment on above: Performed By: #### 4 [id number] #### [address] SPECIFIC GRAVITY, URINE 1.025 Normal [facility] Comment on above: Performed By: #### 4 [id number] #### [address] SQUAMOUS EPI CELLS 51 /LPF Normal [facility] Comment on above: Performed By: #### 4 [id number] #### [place] [place] UROBILINOGEN UA Negative Normal <2.0 [facility] Comment on above: Performed By: #### 4 [id number] #### [address] WBC LM.HPF (Urine sed) [#/Area] 2 /[HPF] Normal <=5 [facility] Comment on above: Performed By: #### 4 [id number] #### [address] Urinalysis complete W Reflex Culture panel (U)on 08-12-2023 Acetone [Mass/Vol] Negative Negative [facility] Appearance (Body fld) Clear [facility] Bilirubin Ql (U) Negative Negative [facility] Color (Stone) Yellow [facility] G6PD (RBC) [Catalytic activity/Vol] Negative Negative [facility] Hemoglobin Ql (U) NINF [facility] Leukocyte esterase Test strip Ql (U) Negative Negative [facility] Mucor racemosus IgE Qn (S) Occasional /LPF [facility] Nitrite Test strip (U) [Mass/Vol] Negative Negative [facility] pH (Migue fld) 5.0 [facility] Protein (U) [Mass/Vol] Negative Negative [facility] [place] IgE Qn (S) Negative Negative [facility] Specific gravity (U) [Rel density] 1.025 [facility] Spherocytes LM Ql (Bld) 51 /LPF [facility] Urobilinogen Qn (U) Negative [facility] WBC (U) [#/Vol] 2 /uL NINF [facility] CNOVon 07-31-2023 CNOV Office Visit (SHERON ) DENVER LEALMIGUE Keys ([id number]) 1970 F Date Time Provider Department 07/31/23 2:30 PM NELSY CHÁVEZ During your visit today, we recorded the following information about you: Pulse Blood pressure Weight Height 76/minute 136/96 69.9 kg 1.626 m Nelsy Chávez APRN.AIR TUCKER 07/31/2023 5:35 PM Signed Female Pelvic Medicine [...] new Pain: no Abnormal Vaginal Discharge: no TROUBLE CLERK 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 She has no history of an abnormal mammogram with cysts on US LMP: No LMP recorded. Patient has had a hysterectomy.; Menopause 3 years ago; hysterectomy in 2015: Menstrual history: NA; Deliveries: I have confirmed and edited as necessary, the PFSH obtained by others. Nelsy Chávez APRN.AIR TUCKER Wire Drawing Machine Operator offered: Patient declines. OBJECTIVE: There were no [...] for now d/t side effects Nelsy Chávez APRN.AIR TUCKER I spent a total of 45 minutes on the date of the service which included preparing to see the patient, [id number] patient care, completing clinical documentation, performing a [...] [R35.0] Nocturia [R35.1] Order(s):UA DIP, URINE (POC) [[id number]] Order #: [id number]. #:[id number] URODYNAMICS [facility] [[id number]] Order #: [id number] Prescriptions as of 07/31/2023 - atenolol (TENORMIN) [...] 10 m (more content not included)... Normal [facility] UA DIP, URINE (POC)on 2022 BILIRUBIN UA (POCT) Negative Negative [facility] CLARITY UA (POCT) Clear [facility] COLOR UA (POCT) Yellow [facility] GLUCOSE UA (POCT) Negative Negative mg/dL [facility] Hemoglobin Ql (U) Negative Negative [facility] KETONE UA (POCT) Negative Negative mg/dL [facility] LEUKOCYTES UA (POCT) Negative Negative [facility] NITRITE UA (POCT) Negative Negative [facility] PH UA (POCT) 5.0 4.5 - 8.0 [facility] Protein Ql (U) Negative Negative mg/dL [facility] SPECIFIC GRAVITY UA (POCT) 1.010 1.005 - 1.030 [facility] UROBILINOGEN UA (POCT) 0.2 E.U./dL Normal E.U./dL [facility] Office Visit (Cardiology)on 06-13-2023 Follow-up visit Diagnoses/Problems Assessed Chest pain (786.50) (R07.9) Elevated troponin (790.6) (R77.8) Fatigue (780.79) (R53.83) Never a smoker Overweight with body mass index (BMI) of 27 to 27.9 in adult (278.02,V85.23) (E66.3,Z68.27) Orders Elevated troponin IO EKG Electrocardiogram- 12 Lead; Status:Active - Perform Order,Retrospective Authorization; Requested for:[id number]; Overweight with body mass index (BMI) of 27 to 27.9 in adult Healthy Weight Tips; Status:Complete - Retrospective Authorization; Done: [id number] Some eating tips that can help you lose weight.; Status:Complete - Retrospective Authorization; Done: [id number] SocHx: Never a smoker Tobacco Use Screening; Status:Complete; Done: [id number] Patient Instructions Please bring all medicines, vitamins, [...] of which are currently being investigated at [facility] (now her fourth GI specialist). Last year while in [place] she had similar issues with elevated troponins in the ED and underwent heart catheterization that did not reveal any specific significant disease, details of the discharge summary are reviewed She underwent recent stress perfusion imaging at [facility], the report is reviewed, she has [...] disease, will investigate the troponin rise at [facility] however I believe this is likely a non-MS troponin elevation, likely associated with underlying inflammatory [...] Signs Recorded: 13Jun2023 10:37AM Heart Rate70, Apical Gcddvtwb075, RUE, Sitting Dhnuxizjt31, RUE, Sitting Height5 ft 4 in Zvfokc525 lb BMI Zywjjfoifb04.46 kg/m2 BSA Calculated1.78 Tobacco Useb) No PHQ-2 [...] Screening.on 023 Adult depression screening assessment No [facility] [address] DO Work Phone: Adult depression screening assessment Yes [facility] [address] DO Work Phone: Adult depression screening assessment Moderate (10-14) [facility] [address] DO Work Phone: Fall risk assessment a) No falls within the last year [facility] [address] DO Work Phone: Tobacco use status CP b) No [facility] [address] DO Work Phone: Tobacco Screening. 1-Several days [facility] [address] DO Work Phone: Tobacco Screening. 3-Nearly every day [facility] [address] DO Work Phone: Tobacco Screening. 0-Not at all [facility] [address] DO Work Phone: Tobacco Screening. Somewhat Difficult [facility] [address] DO Work Phone: Activated partial thrombopla stin time (aPTT) in platelet poor plasma by coagulation aOrdered By: Anibal Valle on 06-05-2023 aPTT Coag (PPP) [Time] 28.0 s 25.1-36.5 [facility] Basophils Auto (Bld) [#/Vol] Ordered By: Anibal Valle on 06-05-2023 Basophils (Bld) [#/Vol] 0.0 10*3/uL 0.0-0.2 [facility] Basophils/100 WBC Auto (Bld) Ordered By: Anibal Valle on 06-05-2023 Basophils/100 WBC (Bld) 0.4 % . [facility] Calcium [Mass/volume] in Ser um or PlasmaOrdered By: Anibal Valle on 06-05-2023 Calcium [Mass/Vol] 9.0 mg/dL 8.6-10.3 [facility] Carbon dioxide, total [Moles /volume] in Serum or PlasmaOrdered By: Anibal Valle on 06-05-2023 CO2 [Moles/Vol] 23.2 mmol/L 21.0-31.0 [facility] Chloride [Moles/volume] in S jay or PlasmaOrdered By: Anibal Valle on 06-05-2023 Chloride [Moles/Vol] 108 mmol/L 98-107 [facility] Creatinine [Mass/volume] in Serum or PlasmaOrdered By: Anibal Valle on 06-05-2023 Creatinine [Mass/Vol] 0.67 mg/dL 0.60-1.20 [facility] Eosinophils Auto (Bld) [#/Vo l]Ordered By: Anibal Valle on 06-05-2023 Eosinophils (Bld) [#/Vol] 0.1 10*3/uL 0.0-0.45 [facility] Eosinophils/100 WBC Auto (Bl d)Ordered By: Anibal Valle on 06-05-2023 Eosinophils/100 WBC (Bld) 1.9 % . [facility] Erythrocyte distribution wid th Auto (RBC) [Ratio]Ordered By: Anibal Valle on 06-05-2023 Erythrocyte distribution width (RBC) [Ratio] 13.9 % 11.9-15.3 [facility] Glucose [Mass/volume] in Ser um or PlasmaOrdered By: Anibal Valle on 06-05-2023 Glucose [Mass/Vol] 106 mg/dL 70-100 [facility] Comment on above: ADA recommended refe rence rangeRandom Glucose Reference Range is dependent on time and content of last meal. Glucose of more than 200 mg/dL in a nonstressed, ambulatory subject supports the diagnosis of Diabetes Mellitus. Hematocrit Auto (Bld) [Volum e fraction]Ordered By: Anibal Valle on 06-05-2023 Hematocrit (Bld) [Volume fraction] 34.4 % 34.0-46.4 [facility] Hemoglobin [Mass/volume] in BloodOrdered By: Anibal Valle on 06-05-2023 Hemoglobin (Bld) [Mass/Vol] 11.9 g/dL 11.8-15.4 [facility] Laboratory - CoagulationOrde red By: Anibal Valle on 06-05-2023 PT Coag (PPP) [Time] 12.0 s 9.0-12.9 [facility] Leukocytes [#/volume] correc herbert for nucleated erythrocytes in Blood by Automated counOrdered By: Anibal Valle on 06-05-2023 WBC corrected for nucl RBC Auto (Bld) [#/Vol] 4.4 10*3/uL 3.8-11.6 [facility] Lymphocytes Auto (Bld) [#/Vo l]Ordered By: Anibal Valle on 06-05-2023 Lymphocytes (Bld) [#/Vol] 1.8 10*3/uL 1.00-4.8 [facility] Lymphocytes/100 WBC Auto (Bl d)Ordered By: Anibal Valle on 06-05-2023 Lymphocytes/100 WBC (Bld) 41.0 % . [facility] MCH Auto (RBC) [Entitic mass ]Ordered By: Anibal Valle on 06-05-2023 MCH (RBC) [Entitic mass] 27.7 pg 24.7-34.3 [facility] MCHC Auto (RBC) [Mass/Vol]Or dered By: Anibal Valle on 06-05-2023 MCHC (RBC) [Mass/Vol] 34.5 g/dL 32.0-35.0 [facility] MCV Auto (RBC) [Entitic vol] Ordered By: Anibal Valle on 06-05-2023 MCV (RBC) [Entitic vol] 80.2 fL 80-100 [facility] Monocyte distribution width [Entitic volume] in Blood by AutomatedOrdered By: Anibal Valle on 06-05-2023 Monocyte distribution width Auto (Bld) [Entitic vol] 24.18 % 0.00-20.00 [facility] Comment on above: For adults in ED, MD W > 20.0 may be associated with a higher risk of sepsis during the first 12 hrs of hospital admission Monocytes Auto (Bld) [#/Vol] Ordered By: Anibal Valle on 06-05-2023 Monocytes (Bld) [#/Vol] 0.3 10*3/uL 0.0-0.8 [facility] Monocytes/100 WBC Auto (Bld) Ordered By: Anibal Valle on 06-05-2023 Monocytes/100 WBC (Bld) 7.5 % . [facility] Natriuretic peptide B [Mass/ Vol]Ordered By: Anibal Valle on 06-05-2023 Natriuretic peptide B (Bld) [Mass/Vol] 39.0 pg/mL 5-100 [facility] Neutrophils Auto (Bld) [#/Vo l]Ordered By: Anibal Valle on 06-05-2023 Neutrophils (Bld) [#/Vol] 2.2 10*3/uL 1.8-7.7 [facility] Neutrophils/100 WBC Auto (Bl d)Ordered By: Anibal Valle on 06-05-2023 Neutrophils/100 WBC (Bld) 49.2 % . [facility] No Panel InformationOrdered By: Anibal Valle on 06-05-2023 Estimated GFR (CKD-EPI) > 60.0 mL/Min [facility] Creatinine Clearance (Chem 97.82 [facility] Nucleated erythrocytes [Pres ence] in Blood by Automated countOrdered By: Anibal Valle on 06-05-2023 Nucleated RBC Auto Ql (Bld) 0.1 /100{WBC} 0-0.5 [facility] Platelet mean volume Auto (B ld) [Entitic vol]Ordered By: Anibal Valle on 06-05-2023 Platelet mean volume (Bld) [Entitic vol] 7.4 fL 6.3-10.7 [facility] Platelet poor plasma interna tional normalized ratio (INR) by coagulation assay (relatOrdered By: Anibal Valle on 06-05-2023 INR Coag (PPP) [Relative time] 1.0 {INR} [facility] Comment on above: INR Therapeutic [...] 06-05-2023 Platelets (Bld) [#/Vol] 336 10*3/uL 150-450 [facility] Potassium [Moles/volume] in Serum or PlasmaOrdered By: Anibal Valle on 06-05-2023 Potassium [Moles/Vol] 3.8 mmol/L 3.5-5.1 [facility] RBC Auto (Bld) [#/Vol]Ordere d By: Anibal Valle on 06-05-2023 RBC (Bld) [#/Vol] 4.29 10*6/uL 3.60-5.00 [facility] Serum or plasma anion gap de terminationOrdered By: Anibal Valle on 06-05-2023 Anion gap [Moles/Vol] 10.6 mmol/L 6.0-15.0 [facility] Sodium [Moles/volume] in Ser um or PlasmaOrdered By: Anibal Valle on 06-05-2023 Sodium [Moles/Vol] 138 mmol/L 136-145 [facility] Troponin I.cardiac [Mass/vol ume] in Serum or Plasma by Detection limit <= 0.01 ng/Ordered By: Anibal Valle on 06-05-2023 Troponin I.cardiac DL <= 0.01 ng/mL [Mass/Vol] 2.6 pg/mL 0.0-15.0 [facility] Urea nitrogen [Mass/volume] in Serum or PlasmaOrdered By: Anibal Valle on 06-05-2023 Urea nitrogen [Mass/Vol] 10 mg/dL 7-25 [facility] WBC Auto (Bld) [#/Vol]Ordere d By: Anibal Valle on 06-05-2023 WBC (Bld) [#/Vol] 4.4 10*3/uL 3.8-11.6 [facility] CBC AUTO DIFFon 04-05-2023 BASO # 0.0 103/ul Normal 0.0-0.1 [facility] Comment on above: Performed By: #### L ACT #### [facility] [address] [address] [address] Mirian Velasco Basophils/100 WBC (Bld) 0.8 % Normal 0.2-2.0 [facility] Comment on above: Performed By: #### L ACT #### [facility] [address] [address] [address] Mirian Velasco EO # 0.1 103/ul Normal 0.0-0.7 [facility] Comment on above: Performed By: #### L ACT #### [facility] [address] [address] [address] Mirian Velasco Eosinophils/100 WBC (Bld) 1.1 % Normal 0.9-7.0 [facility] Comment on above: Performed By: #### L ACT #### [facility] [address] [place] [address] Dr. Mirian Velasco Erythrocyte distribution width (RBC) [Ratio] 13.1 % Normal 11.0-15.0 [facility] Comment on above: Performed By: #### L ACT #### [facility] [address] [place] [address] Dr. Mirian Velasco Hematocrit (Bld) [Volume fraction] 37.6 % Normal 36.0-48.0 [facility] Comment on above: Performed By: #### L ACT #### [facility] [address] [place] [address] Dr. Mirian Velasco Hemoglobin (Bld) [Mass/Vol] 12.4 g/dL Normal 12.0-16.0 [facility] Comment on above: Performed By: #### L ACT #### [facility] [address] [place] [address] Dr. Mirian Velasco IG # 0.01 10e3/ul Normal 0.00-0.03 [facility] Comment on above: Performed By: #### L ACT #### [facility] [address] [address] [address] Mirian Velasco IG % 0.2 % Normal 0.0-0.5 [facility] Comment on above: Performed By: #### L ACT #### [facility] [address] [address] [address] Mirian Velasco LYMPH # 2.5 103/ul Normal 1.2-3.8 [facility] Comment on above: Performed By: #### L ACT #### [facility] [address] [place] [address] Dr. Mirian Velasco Lymphocytes/100 WBC (Bld) 46.2 % Normal 20.5-60.0 [facility] Comment on above: Performed By: #### L ACT #### [facility] [address] [place] [address] Dr. Mirian Velasco MANUAL DIFF REQ NO Normal [facility] Comment on above: Performed By: #### L ACT #### [facility] [address] [place] [address] Dr. Mirian Velasco MCH (RBC) [Entitic mass] 27.1 pg Normal 26.7-34.0 [facility] Comment on above: Performed By: #### L ACT #### [facility] [address] [place] [address] Dr. Mirian Velasco MCHC (RBC) [Mass/Vol] 33.0 g/dL Normal 29.9-35.2 [facility] Comment on above: Performed By: #### L ACT #### [facility] [address] [place] [address] Dr. Mirian Velasco MCV (RBC) [Entitic vol] 82.3 fL Normal 81.0-99.0 [facility] Comment on above: Performed By: #### L ACT #### [facility] [address] [place] [address] Dr. Mirian Velasco MONO # 0.4 103/ul Normal 0.3-0.8 [facility] Comment on above: Performed By: #### L ACT #### [facility] [address] [place] [address] Dr. Mirian Velasco Monocytes/100 WBC (Bld) 7.9 % Normal 1.7-12.0 [facility] Comment on above: Performed By: #### L ACT #### [facility] [address] [address] [address] Mirian Velasco NEUT # 2.3 103/ul Normal 1.4-6.5 [facility] Comment on above: Performed By: #### L ACT #### [facility] [address] [address] [address] Mirian Velasco Neutrophils/100 WBC (Bld) 43.8 % Normal 43.0-75.0 [facility] Comment on above: Performed By: #### L ACT #### [facility] [address] [address] [address] Mirian Velasco Platelet mean volume (Bld) [Entitic vol] 9.2 fL Critically low 9.5-13.5 [facility] Comment on above: Performed By: #### L ACT #### [facility] [address] [place] [address] Dr. Mirian Velasco PLT 318 103/ul Normal 150-450 [facility] Comment on above: Performed By: #### L ACT #### [facility] [address] [address] [address] Mirian Velasco RBC 4.57 106/ul Normal 4.20-5.40 [facility] Comment on above: Performed By: #### L ACT #### [facility] [address] [address] [address] Mirian Velasco WBC 5.3 103/ul Normal 4.0-11.0 [facility] Comment on above: Performed By: #### L ACT #### [facility] [address] [address] [address] Mirian Velasco PROF CHEM 8 (BAS METB)on Anion gap [Moles/Vol] 19.0 mmol/L Normal [facility] Comment on above: Performed By: #### H STROPN, BMP ####[facility] [id number] [address]Dr. Mirian Velasco Calcium [Mass/Vol] 9.6 mg/dL Normal 8.5-10.1 [facility] Comment on above: Performed By: #### H STROPN, BMP ####[facility] [id number] [id number]. Mirian Velasco Chloride [Moles/Vol] 103 mmol/L Normal 98-107 [facility] Comment on above: Performed By: #### H STROPN, BMP ####[facility] [id number] [id number]. Mirian Velasco CO2 [Moles/Vol] 23.1 mmol/L Normal 21.0-32.[address] [facility] Comment on above: Performed By: #### H STROPN, BMP ####[facility] [id number] [address]Dr. Mirian Velasco Creatinine [Mass/Vol] 0.84 mg/dL Normal 0.55-1.02 [facility] Comment on above: Performed By: #### H STROPN, BMP ####[facility] [id number] [address]Dr. Mirian Velasco EGFR-AF AZERBAIJANI >60 Normal >=[address] [facility] Comment on above: Performed By: #### H STROPN, BMP ####[facility] [id number] [address]Dr. Mirian Velasco EGFR-NON AF AZERBAIJANI >60 Normal >=60 [facility] Comment on above: Performed By: #### H STROPN, BMP ####[facility] [id number] [address]Dr. Mirian Velasco Glucose [Mass/Vol] 129 mg/dL Critically high 74-106 [place] Comment on above: Performed By: #### H STROPN, BMP ####[facility] [address] [id number]. Mirian Velasco Potassium [Moles/Vol] 3.1 mmol/L Critically low 3.5-5.1 [facility] Comment on above: Performed By: #### H STROPN, BMP ####[facility] [id number] [address]Dr. Mirian Velasco Sodium [Moles/Vol] 142 mmol/L Normal 136-145 [facility] Comment on above: Performed By: #### H FAUSTO, BMP ####[facility] [id number] [id number]. Mirian Velasco Urea nitrogen [Mass/Vol] 12.0 mg/dL Normal 7.0-18.0 [facility] Comment on above: Performed By: #### H STROPN, BMP ####[facility] [address] [address]DrReno Velasco Urea nitrogen/Creatinine [Mass ratio] 14.3 mg/mg Normal [facility] Comment on above: Performed By: #### H STROPN, BMP ####[facility] [address] [address]Dr. Mirian Velasco TROPONIN, HIGH SENSITIVITYon 04-05-2023 HSTROP 5.6 pg/mL Normal 4.0-51.3 [facility] Comment on above: Result Comment: CUT- OFF POINTS HAVE BEEN ESTABLISHED BASED ON THE FOURTH UNIVERSAL DEFINITIONS OF MYOCARDIAL INFARCTION. THE UPPER REFERENCE LIMIT (URL) OF TROPONIN, DEFINED THE 99TH PERCENTILE OF cTnI DISTRIBUTION IN A REFERENCE POPULATION, HAS BEEN CONFIRMED THE DECISION THRESHOLD FOR MS DIAGNOSIS. Performed By: #### H FAUSTO, BMP ####[facility] [address] [address]Dr. Mirian Velasco CBC AUTO DIFFon 03-06-2023 BASO # 0.1 103/ul Normal 0.0-0.1 [facility] Comment on above: Performed By: #### L ACT #### [facility] [address] [place] [address] Dr. Mirian Velasco Basophils/100 WBC (Bld) 0.8 % Normal 0.2-2.0 [facility] Comment on above: Performed By: #### L ACT #### [facility] [address] [place] [address] Dr. Mirian Velasco EO # 0.1 103/ul Normal 0.0-0.7 [facility] Comment on above: Performed By: #### L ACT #### [facility] [address] [place] [address] Dr. Mirian Velasco Eosinophils/100 WBC (Bld) 1.4 % Normal 0.9-7.0 [facility] Comment on above: Performed By: #### L ACT #### [facility] [address] [place] [address] Dr. Mirian Velasco Erythrocyte distribution width (RBC) [Ratio] 13.1 % Normal 11.0-15.0 [facility] Comment on above: Performed By: #### L ACT #### [facility] [address] [place] [address] Dr. Mirian Velasco Hematocrit (Bld) [Volume fraction] 37.9 % Normal 36.0-48.0 [facility] Comment on above: Performed By: #### L ACT #### [facility] [address] [place] [address] Dr. Mirian Velasco Hemoglobin (Bld) [Mass/Vol] 12.7 g/dL Normal 12.0-16.0 [facility] Comment on above: Performed By: #### L ACT #### [facility] [address] [place] [address] Dr. Mirian Velasco IG # 0.01 10e3/ul Normal 0.00-0.03 [facility] Comment on above: Performed By: #### L ACT #### [facility] [address] [place] [address] Dr. Mirian Velasco IG % 0.2 % Normal 0.0-0.5 [facility] Comment on above: Performed By: #### L ACT #### [facility] [address] [place] [address] Dr. Mirian Velasco LYMPH # 1.8 103/ul Normal 1.2-3.8 [facility] Comment on above: Performed By: #### L ACT #### [facility] [address] [place] [address] Dr. Mirian Velasco Lymphocytes/100 WBC (Bld) 27.2 % Normal 20.5-60.0 [facility] Comment on above: Performed By: #### L ACT #### [facility] [address] [place] [address] Dr. Mirian Velasco MANUAL DIFF REQ NO Normal [facility] Comment on above: Performed By: #### L ACT #### [facility] [address] [address] [address] Mirian Velasco MCH (RBC) [Entitic mass] 27.5 pg Normal 26.7-34.0 [facility] Comment on above: Performed By: #### L ACT #### [facility] [address] [place] [address] Dr. Mirian Velasco MCHC (RBC) [Mass/Vol] 33.5 g/dL Normal 29.9-35.2 [facility] Comment on above: Performed By: #### L ACT #### [facility] [address] [place] [address] Dr. Mirian Velasco MCV (RBC) [Entitic vol] 82.0 fL Normal 81.0-99.0 [facility] Comment on above: Performed By: #### L ACT #### [facility] [address] [place] [address] Dr. Mirian Velasco MONO # 0.4 103/ul Normal 0.3-0.8 [facility] Comment on above: Performed By: #### L ACT #### [facility] [address] [place] [address] Dr. Mirian Velasco Monocytes/100 WBC (Bld) 5.5 % Normal 1.7-12.0 [facility] Comment on above: Performed By: #### L ACT #### [facility] [address] [place] [address] Dr. Mirian Velasco NEUT # 4.3 103/ul Normal 1.4-6.5 [facility] Comment on above: Performed By: #### L ACT #### [facility] [address] [place] [address] Dr. Mirian Velasco Neutrophils/100 WBC (Bld) 64.9 % Normal 43.0-75.0 [facility] Comment on above: Performed By: #### L ACT #### [facility] [address] [place] [address] Dr. Mirian Velasco Platelet mean volume (Bld) [Entitic vol] 9.4 fL Critically low 9.5-13.5 [facility] Comment on above: Performed By: #### L ACT #### [facility] [address] [address] [address] Mirian Velasco PLT 317 103/ul Normal 150-450 [facility] Comment on above: Performed By: #### L ACT #### [facility] [address] [address] [address] Mirian Velasco RBC 4.62 106/ul Normal 4.20-5.40 [facility] Comment on above: Performed By: #### L ACT #### [facility] [address] [place] [address] Dr. Mirian Velasco WBC 6.6 103/ul Normal 4.0-11.0 [facility] Comment on above: Performed By: #### L ACT #### [facility] [address] [place] [address] Dr. Mirian Velasco CULTURE BLOODon 03-06-2023 Microscopic examination of blood, culture Culture Observations: NO GROWTH AT 5 DAYS. Normal [facility] Comment on above: Performed By: #### B LDCX2 ####[facility] [id number] [address]Dr. Mirian Velasco Microscopic examination of blood, culture Culture Observations: NO GROWTH AT 5 DAYS. Normal [facility] Comment on above: Performed By: #### B LDCX1 #### [facility] [address] [place] [address] Dr. Mirian Velasco LACTATE/LACTIC ACIDon 2022 Lactate [Moles/Vol] 2.2 mmol/L Critically high 0.4-2.0 [facility] Comment on above: Performed By: #### L ACT #### [facility] [address] [place] [address] Dr. Mirian Velasco LIPASEon 03-06-2023 Lipase [Catalytic activity/Vol] 53.0 U/L Critically low 73.0-393.0 [facility] Comment on above: Performed By: #### L ACT #### [facility] [address] [place] [address] Dr. Mirian Velasco PROF 14(COMP METB)on 023 Albumin [Mass/Vol] 3.4 g/dL Normal 3.4-5.0 [facility] Comment on above: Performed By: #### L ACT #### [facility] [address] [place] [address] Dr. Mirian Velasco Albumin/Globulin [Mass ratio] 1.0 {ratio} Normal [facility] Comment on above: Performed By: #### L ACT #### [facility] [address] [place] [address] Dr. Mirian Velasco ALP [Catalytic activity/Vol] 123 U/L Critically high 46-116 [facility] Comment on above: Performed By: #### L ACT #### [facility] [address] [place] [address] Dr. Mirian Velasco ALT [Catalytic activity/Vol] 33 U/L Normal 14-59 [facility] Comment on above: Performed By: #### L ACT #### [facility] [address] [place] [address] Dr. Mirian Velasco Anion gap [Moles/Vol] 13.1 mmol/L Normal [facility] Comment on above: Performed By: #### L ACT #### [facility] [address] [place] [address] Dr. Mirian Velasco AST [Catalytic activity/Vol] 31 U/L Normal 15-37 [facility] Comment on above: Performed By: #### L ACT #### [facility] [address] [place] [address] Dr. Mirian Velasco Bilirubin [Mass/Vol] 0.3 mg/dL Normal 0.2-1.0 [facility] Comment on above: Performed By: #### L ACT #### [facility] [address] [place] [address] Dr. Mirian Velasco Calcium [Mass/Vol] 8.9 mg/dL Normal 8.5-10.1 [facility] Comment on above: Performed By: #### L ACT #### [facility] [address] [place] [address] Dr. Mirian Velasco Chloride [Moles/Vol] 107 mmol/L Normal 98-107 [facility] Comment on above: Performed By: #### L ACT #### [facility] [address] [place] [address] Dr. Mirian Velasco CO2 [Moles/Vol] 25.6 mmol/L Normal 21.0-32.[address] [facility] Comment on above: Performed By: #### L ACT #### [facility] [address] [address] [address] Mirian Velasco Creatinine [Mass/Vol] 0.70 mg/dL Normal 0.55-1.02 [facility] Comment on above: Performed By: #### L ACT #### [facility] [address] [place] [address] Dr. Mirian Velasco EGFR-AF AZERBAIJANI >60 Normal >=[address] [facility] Comment on above: Performed By: #### L ACT #### [facility] [address] [place] [address] Dr. Mirian Velasco EGFR-NON AF AZERBAIJANI >60 Normal >=60 [facility] Comment on above: Performed By: #### L ACT #### [facility] [address] [address] [address] Mirian Velasco Globulin (S) [Mass/Vol] 3.4 g/dL Normal [facility] Comment on above: Performed By: #### L ACT #### [facility] [address] [place] [address] Dr. Mirian Velasco Glucose [Mass/Vol] 125 mg/dL Critically high 74-106 [place] Comment on above: Performed By: #### L ACT #### [facility] [address] [place] [address] Dr. Mirian Velasco Potassium [Moles/Vol] 3.7 mmol/L Normal 3.5-5.1 [facility] Comment on above: Performed By: #### L ACT #### [facility] [address] [address] [address] Mirian Velasco Protein [Mass/Vol] 6.8 g/dL Normal 6.4-8.2 [facility] Comment on above: Performed By: #### L ACT #### [facility] [address] [address] [address] Mirian Velasco Sodium [Moles/Vol] 142 mmol/L Normal 136-145 [facility] Comment on above: Performed By: #### L ACT #### [facility] [address] [address] [address] Mirian Velasco Urea nitrogen [Mass/Vol] 16.0 mg/dL Normal 7.0-18.0 [facility] Comment on above: Performed By: #### L ACT #### [facility] [address] [place] [address] Dr. Mirian Velasco Urea nitrogen/Creatinine [Mass ratio] 22.9 mg/mg Normal [facility] Comment on above: Performed By: #### L ACT #### [facility] [address] [place] [address] Dr. Mirian Velasco PROTIMEon 03-06-2023 INR Coag (PPP) [Relative time] {INR} Normal [facility] Comment on above: Performed By: #### P T #### [facility] [address] [place] [address] Dr. Mirian Velasco INR GUIDELINES SEE BELOW Normal [facility] Comment on above: Result Comment: SAMEER RED INR: 2.0 - 3.0 CONDITIONS NOT LISTED BELOW 2.5 - 3.5 FOR PROSTHETIC HEART VALVE REPLACEMENT 2.5 - 3.5 RECURRENT THROMBOSIS Performed By: #### P T #### [facility] [address] [place] [address] Dr. Mirian Velasco PT Coag (PPP) [Time] 9.8 s Normal 9.0-11.6 [facility] Comment on above: Performed By: #### P T #### [facility] [address] [place] [address] Dr. Mirian Velasco TROPONIN, HIGH SENSITIVITYon 03-06-2023 HSTROP 4.4 pg/mL Normal 4.0-51.3 [facility] Comment on above: Result Comment: CUT- OFF POINTS HAVE BEEN ESTABLISHED BASED ON THE FOURTH UNIVERSAL DEFINITIONS OF MYOCARDIAL INFARCTION. THE UPPER REFERENCE LIMIT (URL) OF TROPONIN, DEFINED THE 99TH PERCENTILE OF cTnI DISTRIBUTION IN A REFERENCE POPULATION, HAS BEEN CONFIRMED THE DECISION THRESHOLD FOR MS DIAGNOSIS. Performed By: #### L ACT #### [facility] [address] [place] [address] Dr. Mirian Velasco Bacteria identified Aer cx N om (Unsp spec)Ordered By: Niecy Duron on 03-02-2023 Superficial Wound Culture Methicillin Resis Staph Aureus [facility] CT LSPINE WO CONon 3 CT [...] by: NANCY BELLE Date: 2023-02-19 06:42 Normal [facility] XR ESOPHAGRAMon 12-26-2022 [facility] NURSING PROGon 12-08-2022 NURSING PROG HNO ID: [id number] Author: Lisa Contreras RN Service: Nursing Author Type: Registered Nurse Type: Nursing Progress Note Filed: 12/08/2022 11:28 AM Note Text: [facility] POST PROCEDURE FOLLOW UP CALL [phone] (home) Date Phone Call Made: 12/08/2022 Attempt: [...] more pleasant? No Lisa Contreras RN Normal [facility] ANES POSTPROC EVALon 023 ANES POSTPROC EVAL HNO ID: [id number] Author: Andres Sheets DO Service: Anesthesiology Author Type: Anesthesiologist Type: Anesthesia Postprocedure Evaluation Filed: 12/07/2022 12:44 PM Note Text: POST ANESTHESIA EVALUATION NOTE : 1970 Procedure Summary Date: 12/07/22 Room / Location: [facility] Anesthesia Start: 1034 Anesthesia Stop: 1055 [...] December 07, 2022 TIME: 12:44 PM CSN: [id number] [facility] ANES PRE-OPon 12-07-2022 ANES PRE-OP HNO ID: [id number] Author: Andres Sheets DO Service: Anesthesiology Author Type: Anesthesiologist Type: Anesthesia Preprocedure Evaluation Filed: 12/07/2022 9:42 AM Note Text: ANESTHESIOLOGY DAY OF SURGERY NOTE : 1970 Procedure Information Date/Time: 12/07/22 1030 Scheduled providers: Winston Hannah DO Procedures: EGD - THERAPEUTIC, EUS, OR TUBE INTERVENTIONS PH MONTIEL INSERT OFF MEDS Location: [facility] Estimated body mass index is 24.55 [...] December 07, 2022 TIME: 9:40 AM CSN: [id number] [facility] HISTORY PHYSICALon 3 HISTORY PHYSICAL HNO ID: [id number] Author: Soraida Mathis PA-C Service: Gastroenterology Author Type: Physician Customer Advocacy Manager Type: HANDP Filed: 12/07/2022 9:48 AM Note [...] PAIN, N/V/D Medication reconciliation list reviewed in [facility]. Past medical history, past surgical history, social history and family history reviewed and updated in [facility]. ALLERGIES Allergies: Risperidone Intolerance Comment:Breast discharge SEE [facility] FOR VITALS BP 109/74 Pulse [...] Leal DATE: 12/07/2022 TIME: 9:41 AM Normal [facility] Upper GI endoscopyon 023 Upper GI endoscopy [facility] Gastrointestinal Endoscopy Patient Name: Mary [...] by the physician, the nurse and the health promotion educator in the pre-procedure area in the endoscopy [...] previously scheduled. Procedure Code(s): --- Professional --- 56697, Esophagogastroduodenos copy, flexible, transoral; with dilation of gastric/duodenal stricture(s) (eg, balloon, bougie) Diagnosis Code(s): --- Professional --- K21.00, Gastro-esophageal reflux disease with esophagitis, without bleeding K31.84, Gastroparesis CPT copyright 2020 [employer]. All rights reserved. The codes documented in this report are preliminary and upon vehicle service agent review may be revised to meet current compliance requirements. Attending Participation: I personally performed the entire procedure. Scope In: 10:39:12 AM Scope Out: 10:46:13 AM MD Winston Diaz MD 12/07/2022 10 (more content not included)... Normal [facility] ANES POSTPROC EVALon 023 ANES POSTPROC EVAL HNO ID: [id number] Author: Annabel Burton MD Service: Anesthesiology Author Type: Physician Type: Anesthesia Postprocedure Evaluation Filed: 12/05/2022 2:01 PM Note Text: POST ANESTHESIA EVALUATION NOTE : 1970 Procedure Summary Date: 12/05/22 Room / Location: [facility] Anesthesia Start: 900 Anesthesia Stop: 917 [...] December 05, 2022 TIME: 2:00 PM CSN: [id number] [facility] ANES PRE-OPon 12-05-2022 ANES PRE-OP HNO ID: [id number] Author: Annabel Burton MD Service: Anesthesiology Author Type: Physician Type: Anesthesia Preprocedure Evaluation Filed: 12/05/2022 8:28 AM Note Text: ANESTHESIOLOGY DAY OF SURGERY NOTE : 1970 Procedure Information Date/Time: 12/05/22 0900 Scheduled providers: Isra Masters DO Procedure: SIGMOIDOSCOPY Location: [facility] Estimated body mass index is 24.55 [...] December 05, 2022 TIME: 8:26 AM CSN: [id number] Normal [facility] Flexible Sigmoidoscopyon Flexible sigmoidoscopy [facility] Gastrointestinal Endoscopy Patient Name: Mary Leal Procedure Date: 12/05/2022 8:55 AM Date of : 1970 Admit Type: Outpatient Age: 52 Room: [place] [address] Gender: Female Note Status: Finalized Attending MD: [...] present medications. Procedure Code(s): --- Professional --- 99403, 52, Sigmoidoscopy, flexible; diagnostic, including collection of specimen(s) by brushing or washing, when performed (separate procedure) Diagnosis Code(s): --- Professional --- K59.00, Constipation, unspecified CPT copyright 2020 [employer]. All rights reserved. The codes documented in this report are preliminary and upon vehicle service agent review may be revised to meet current compliance requirements. Attending Participation: I personally performed the entire procedure. Scope In: 9:07:04 AM Scope Out: 9:09:45 AM DO Isra Chen DO 12/05/2022 9:13:05 AM This report has been signed electronically by Isra Masters DO Number of Addenda: 0 Note Initiated On: 12/05/2022 8:55 AM Estimated Blood Loss: Estimated blood loss: none. Normal [facility] HISTORY PHYSICALon HISTORY PHYSICAL HNO ID: [id number] Author: Lashanda Dorado PA-C Service: Gastroenterology Author Type: Physician Customer Advocacy Manager Type: HANDP Filed: 12/05/2022 8:43 AM Note [...] PAIN, N/V/D Medication reconciliation list reviewed in [facility]. Past medical history, past surgical history, social history and family history reviewed and updated in [facility]. ALLERGIES Allergies: Risperidone Intolerance Comment:Breast discharge SEE [facility] FOR VITALS There were no [...] Leal DATE: 12/05/2022 TIME: 8:42 AM Normal [facility] NURSING PROGon 12-05-2022 NURSING PROG HNO ID: [id number] Author: Lisa Contreras, MAKI Service: ? Author Type: Registered Nurse Type: Nursing Progress Note Filed: 12/05/2022 1:07 PM Note Text: [facility] PRE PROCEDURE CALL Akiko. I'm calling from [facility] endoscopy to provide you with the information for your surgery/procedure tomorrow. 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 yes When anesthesia or sedation is being given: Patient instructed you must have an adult seasonal delivery driver because you will not be able to work or drive for the rest of the day after your test.yes Can you please confirm the name and relationship of your seasonal delivery driver. tbd What is the best number for your seasonal delivery driver to be reached at tomorrow for updates? tbd Your seasonal delivery driver is allowed to wait here [...] Do not wear makeup, lotion, or finger swedish. yes Patient instructed: Please bring a list [...] given Any barriers to Patient learning (confusion? Electron Beam Photo Mask Maker needed?): Patient/Patient Electronic Warfare Operator responded appropriately on phone. If patient needs to reschedule please call: [phone] [facility] phone number: [phone] Type of instruction given: Verbal by telephone contact. Normal [facility] NURSING PROGon 12-02-2022 NURSING PROG HNO ID: [id number] Author: Isra Harman RN Service: ? Author Type: Registered Nurse Type: Nursing Progress Note Filed: 12/02/2022 10:54 AM Note Text: [facility] PRE PROCEDURE CALL Akiko. I'm calling from [facility] endoscopy to provide you with the information for your surgery/procedure tomorrow. 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 yes When anesthesia or sedation is being given: Patient instructed you must have an adult seasonal delivery driver because you will not be able to work or drive for the rest of the day after your test.yes Can you please confirm the name and relationship of your seasonal delivery driver. Rich What is the best number for your seasonal delivery driver to be reached at tomorrow for updates? 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 yes Patient instructed: Please bring a list [...] given Any barriers to Patient learning (confusion? Electron Beam Photo Mask Maker needed?): Patient/Patient Electronic Warfare Operator responded appropriately on phone. If patient needs to reschedule please call: [phone] [facility] phone number: [phone] Type of instruction given: Verbal by telephone contact. Normal [facility] AMYLASEon 10-20-2022 Amylase [Catalytic activity/Vol] 33 U/L Normal 25-115 [facility] Comment on above: Performed By: #### L ACT #### [facility] [address] [address] [address] Mirian Velasco CBC AUTO DIFFon 10-20-2022 BASO # 0.0 103/ul Normal 0.0-0.1 [facility] Comment on above: Performed By: #### P T #### [facility] [address] [address] [address] Mirian Velasco Basophils/100 WBC (Bld) 0.2 % Normal 0.2-2.0 [facility] Comment on above: Performed By: #### P T #### [facility] [address] [address] [address] Mirian Velasco EO # 0.1 103/ul Normal 0.0-0.7 [facility] Comment on above: Performed By: #### P T #### [facility] [address] [place] [address] Dr. Mirian Velasco Eosinophils/100 WBC (Bld) 0.6 % Critically low 0.9-7.0 [facility] Comment on above: Performed By: #### P T #### [facility] [address] [place] [address] Dr. Mirian Velasco Erythrocyte distribution width (RBC) [Ratio] 13.6 % Normal 11.0-15.0 [facility] Comment on above: Performed By: #### P T #### [facility] [address] [place] [address] Dr. Mirian Velasco Hematocrit (Bld) [Volume fraction] 41.0 % Normal 36.0-48.0 [facility] Comment on above: Performed By: #### P T #### [facility] [address] [place] [address] Dr. Mirian Velasco Hemoglobin (Bld) [Mass/Vol] 13.5 g/dL Normal 12.0-16.0 [facility] Comment on above: Performed By: #### P T #### [facility] [address] [place] [address] Dr. Mirian Velasco IG # 0.06 10e3/ul Critically high 0.00-0.03 [facility] Comment on above: Performed By: #### P T #### [facility] [address] [place] [address] Dr. Mirian Velasco IG % 0.4 % Normal 0.0-0.5 [facility] Comment on above: Performed By: #### P T #### [facility] [address] [place] [address] Dr. Mirian Velasco LYMPH # 2.5 103/ul Normal 1.2-3.8 [facility] Comment on above: Performed By: #### P T #### [facility] [address] [place] [address] Dr. Mirian Velasco Lymphocytes/100 WBC (Bld) 17.5 % Critically low 20.5-60.0 [facility] Comment on above: Performed By: #### P T #### [facility] [address] [address] [address] Mirian Velasco MANUAL DIFF REQ NO Normal [facility] Comment on above: Performed By: #### P T #### [facility] [address] [place] [address] Dr. Mirian Velasco MCH (RBC) [Entitic mass] 28.1 pg Normal 26.7-34.0 [facility] Comment on above: Performed By: #### P T #### [facility] [address] [place] [address] Dr. Mirian Velasco MCHC (RBC) [Mass/Vol] 32.9 g/dL Normal 29.9-35.2 [facility] Comment on above: Performed By: #### P T #### [facility] [address] [place] [address] Dr. Mirian Velasco MCV (RBC) [Entitic vol] 85.2 fL Normal 81.0-99.0 [facility] Comment on above: Performed By: #### P T #### [facility] [address] [place] [address] Dr. Mirian Velasco MONO # 0.7 103/ul Normal 0.3-0.8 [facility] Comment on above: Performed By: #### P T #### [facility] [address] [place] [address] Dr. Mirian Velasco Monocytes/100 WBC (Bld) 4.5 % Normal 1.7-12.0 [facility] Comment on above: Performed By: #### P T #### [facility] [address] [place] [address] Dr. Mirian Velasco NEUT # 11.0 103/ul Critically high 1.4-6.[address] [facility] Comment on above: Performed By: #### P T #### [facility] [address] [place] [address] Dr. Mirian Velasco Neutrophils/100 WBC (Bld) 76.8 % Critically high 43.0-75.0 [facility] Comment on above: Performed By: #### P T #### [facility] [address] [address] [address] Mirian Velasco Platelet mean volume (Bld) [Entitic vol] 8.7 fL Critically low 9.5-13.5 [facility] Comment on above: Performed By: #### P T #### [facility] [address] [address] [address] Mirian Velasco PLT 390 103/ul Normal 150-450 [facility] Comment on above: Performed By: #### P T #### [facility] [address] [address] [address] Mirian Velasco RBC 4.81 106/ul Normal 4.20-5.40 [facility] Comment on above: Performed By: #### P T #### [facility] [address] [place] [address] Dr. Mirian Velasco WBC 14.3 103/ul Critically high 4.0-11.[address] [facility] Comment on above: Performed By: #### P T #### [facility] [address] [place] [address] ABD/PELV W CONon [...] by: SALMA AMEZQUITA Date: 2022-10-20 12:35 Normal [facility] CULTURE BLOODon 10-20-2022 Microscopic examination of blood, culture Culture Observations: NO GROWTH AT 5 DAYS. Normal [facility] Comment on above: Performed By: #### B [id number] ####[facility] [id number] [address]Dr. Mirian Velasco Microscopic examination of blood, culture Culture Observations: NO GROWTH AT 5 DAYS. Normal [facility] Comment on above: Performed By: #### B LDCX1 #### [facility] [address] [address] [address] 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 NO POTENTIAL PATHOGENS SEEN. Normal [facility] Comment on above: Performed By: #### U RCX #### [facility] [address] [address] [address] Mirian Velasco ER URINE PROFILEon 2 Bilirubin Ql (U) Negative Normal NEGATIVE [facility] Comment on above: Performed By: #### P T #### [facility] [address] [address] [address] Mirian Velasco Clarity (U) CLEAR Normal CLEAR [facility] Comment on above: Performed By: #### P T #### [facility] [address] [address] [address] Mirian Velasco Color (U) LT. YELLOW Normal YELLOW [facility] Comment on above: Performed By: #### P T #### [facility] [address] [place] [address] Dr. Mirian KING A micrscopic examination will be performed if indicated. Normal [facility] Comment on above: Performed By: #### P T #### [facility] [address] [place] [address] Dr. Mirian Velasco Glucose Ql (U) Negative Normal NEGATIVE [facility] Comment on above: Performed By: #### P T #### [facility] [address] [address] [address] Mirian Velasco Hemoglobin Ql (U) Negative Normal NEGATIVE [facility] Comment on above: Performed By: #### P T #### [facility] [address] [place] [address] Dr. Mirian Velasco Ketones Ql (U) Negative Normal NEGATIVE [facility] Comment on above: Performed By: #### P T #### [facility] [address] [place] [address] Dr. Mirian Velasco LEUKOCYTES SMALL Abnormal NEGATIVE [facility] Comment on above: Performed By: #### P T #### [facility] [address] [place] [address] Dr. Mirian Velasco Nitrite Ql (U) Negative Normal NEGATIVE [facility] Comment on above: Performed By: #### P T #### [facility] [address] [place] [address] Dr. Mirian Velasco pH (U) 7.0 [pH] Normal 5-9 [facility] Comment on above: Performed By: #### P T #### [facility] [address] [place] [address] Dr. Mirian Velasco SPEC GRAVITY 1.015 Normal 1.005-<=1.025 [facility] Comment on above: Performed By: #### P T #### [facility] [address] [place] [address] Dr. Mirian Velasco UA PROTEIN Negative Normal NEGATIVE/ TRACE [facility] Comment on above: Performed By: #### P T #### [facility] [address] [place] [address] Dr. Mirian Velasco UR MICRO IND INDICATED Normal [facility] Comment on above: Performed By: #### P T #### [facility] [address] [place] [address] Dr. Mirian Velasco Urobilinogen Qn (U) 0.2 {Lyubov'U}/dL Normal 0.2 - 1. 0 [facility] Comment on above: Performed By: #### P T #### [facility] [address] [place] [address] Dr. Mirian Velasco LACTATE/LACTIC ACIDon 2021 Lactate [Moles/Vol] 1.3 mmol/L Normal 0.4-1.9 [facility] Comment on above: Performed By: #### L ACT #### [facility] [address] [place] [address] Dr. Mirian Velasco LIPASEon 10-20-2022 Lipase [Catalytic activity/Vol] 49.0 U/L Critically low 73.0-393.0 [facility] Comment on above: Performed By: #### P T #### [facility] [address] [place] [address] Dr. Mirian Velasco PROF 14(COMP METB)on 022 Albumin [Mass/Vol] 3.2 g/dL Critically low 3.4-5.0 [facility] Comment on above: Performed By: #### P T #### [facility] [address] [place] [address] Dr. Mirian Velasco Albumin/Globulin [Mass ratio] 0.9 {ratio} Normal [facility] Comment on above: Performed By: #### P T #### [facility] [address] [place] [address] Dr. Mirian Velasco ALP [Catalytic activity/Vol] 129 U/L Critically high 46-116 [facility] Comment on above: Performed By: #### P T #### [facility] [address] [place] [address] Dr. Mirian Velasco ALT [Catalytic activity/Vol] 25 U/L Normal 14-59 [facility] Comment on above: Performed By: #### P T #### [facility] [address] [place] [address] Dr. Mirian Velasco Anion gap [Moles/Vol] 10.7 mmol/L Normal [facility] Comment on above: Performed By: #### P T #### [facility] [address] [place] [address] Dr. Mirian Velasco AST [Catalytic activity/Vol] 20 U/L Normal 15-37 [facility] Comment on above: Performed By: #### P T #### [facility] [address] [address] [address] Mirian Velasco Bilirubin [Mass/Vol] 0.5 mg/dL Normal 0.2-1.0 [facility] Comment on above: Performed By: #### P T #### [facility] [address] [place] [address] Dr. Mirian Velasco Calcium [Mass/Vol] 9.2 mg/dL Normal 8.5-10.1 [facility] Comment on above: Performed By: #### P T #### [facility] [address] [place] [address] Dr. Mirian Velasco Chloride [Moles/Vol] 102 mmol/L Normal 98-107 [facility] Comment on above: Performed By: #### P T #### [facility] [address] [place] [address] Dr. Mirian Velasco CO2 [Moles/Vol] 30.0 mmol/L Normal 21.0-32.0 [facility] Comment on above: Performed By: #### P T #### [facility] [address] [place] [address] Dr. Mirian Velasco Creatinine [Mass/Vol] 0.68 mg/dL Normal 0.55-1.02 [facility] Comment on above: Performed By: #### P T #### [facility] [address] [place] [address] Dr. Mirian Velasco EGFR-AF AZERBAIJANI >60 Normal >=60 [facility] Comment on above: Performed By: #### P T #### [facility] [address] [place] [address] Dr. Mirian Velasco EGFR-NON AF AZERBAIJANI >60 Normal >=60 [facility] Comment on above: Performed By: #### P T #### [facility] [address] [place] [address] Dr. Mirian Velasco Globulin (S) [Mass/Vol] 3.7 g/dL Normal [facility] Comment on above: Performed By: #### P T #### [facility] [address] [address] [address] Mirian Velasco Glucose [Mass/Vol] 109 mg/dL Critically high 74-106 [place] Comment on above: Performed By: #### P T #### [facility] [address] [place] [address] Dr. Mirian Velasco Potassium [Moles/Vol] 3.7 mmol/L Normal 3.5-5.1 [facility] Comment on above: Performed By: #### P T #### [facility] [address] [place] [address] Dr. Mirian Velasco Protein [Mass/Vol] 6.9 g/dL Normal 6.4-8.2 [facility] Comment on above: Performed By: #### P T #### [facility] [address] [place] [address] Dr. Mirian Velasco Sodium [Moles/Vol] 139 mmol/L Normal 136-145 [facility] Comment on above: Performed By: #### P T #### [facility] [address] [place] [address] Dr. Mirian Velasco Urea nitrogen [Mass/Vol] 13.0 mg/dL Normal 7.0-18.0 [facility] Comment on above: Performed By: #### P T #### [facility] [address] [address] [address] Mirian Velasco Urea nitrogen/Creatinine [Mass ratio] 19.1 mg/mg Normal [facility] Comment on above: Performed By: #### P T #### [facility] [address] [place] [address] Dr. Mirian Velasco URINE MICROSCOPIC ONLYon BACTERIA TRACE Abnormal NONE SEEN [facility] Comment on above: Performed By: #### P T #### [facility] [address] [place] [address] Dr. Mirian Velasco Bacteria identified Cx Nom (U) INDICATED Normal The [facility] Comment on above: Performed By: #### P T #### [facility] [address] [place] [address] Dr. Mirian Velasco CAST NONE SEEN Normal NONE SEEN The [facility] Comment on above: Performed By: #### P T #### [facility] [address] [place] [address] Dr. Mirian Velasco Crystals LM Nom (Urine sed) NONE SEEN Normal NONE SEEN [facility] Comment on above: Performed By: #### P T #### [facility] [address] [place] [address] Dr. Mirian Velasco Epithelial cells LM Ql (Urine sed) MODERATE Abnormal NONE SEEN /RARE The [facility] Comment on above: Performed By: #### P T #### [facility] [address] [place] [address] Dr. Mirian Velasco MUCOUS NONE SEEN Normal NONE SEEN [facility] Comment on above: Performed By: #### P T #### [facility] [address] [place] [address] Dr. Mirian Velasco RBC NONE SEEN Abnormal 0-2 The [facility] Comment on above: Performed By: #### P T #### [facility] [address] [place] [address] Dr. Mirian Velasco WBC 2-5 Abnormal NONE SEEN [facility] Comment on above: Performed By: #### P T #### [facility] [address] [place] [address] Dr. Mirian Velasco YEAST PRESENT Abnormal NONE SEEN [facility] Comment on above: Result Comment: RARE BUDDING YEAST Performed By: #### P T #### [facility] [address] [place] [address] Dr. Mirian Vleasco POINT OF CARE GLUCOSEon 10-06 Glucose [Mass/Vol] 131 mg/dL Critically high 74-106 T [facility] Comment on above: Performed By: #### P OCGLUC ####[facility] [address] [place], [place] [address]WmReno Velasco Glucose [Mass/Vol] 113 mg/dL Critically high 74-106 T [facility] Comment on above: Performed By: #### P OCGLUC ####[facility] [address] [place], [place] [address]TtReno Velasco XR FOOT RT 2Von 10-17-2022 XR [...] NICKI DACOSTA Date: 2022-10-17 18:04 Normal The [facility] Covid-19 PCR (CVDTB)on SARS-CoV-2 (COVID-19) RNA JOSÉ MIGUEL+probe Ql (Unsp spec) Not detected Normal NOT DETECTED The [facility] Comment on above: Result Comment: This test is not yet approved or cleared by the [place] FDA. When there are no FDA-approved or cleared tests available, and other criteria are met, FDA can make tests available under an emergency access mechanism called an Emergency Use Authorization (EUA). The EUA for this test is supported by the Chain Offbearer of Health and Human Service's (HHS's) declaration [...] SARS-CoV-2. Performed By: #### C VDTBH #### [facility] [address] [place], [place] [address] Dr. Mirian Velasco Diagnostic Mammogram, Unilat eral [...] VERY IMPORTANT TO YOUR HEALTH. THE CURRENT [employer] GUIDELINES RECOMMENDS ANNUAL MAMMOGRAPHY BEGINNING AT AGE 42 THIS FACILITY USES A REMINDER SYSTEM TO ENSURE ALL PATIENTS RECEIVE REMINDER NOTIFICATIONS AT THE APPROPRIATE TIME BASED ON THE RECOMMENDATIONS OF THIS EXAM. Board Certified Radiologist. Accredited by the ACR and FDA. Report reported and signed by Dawna Lizarraga on 09/28/2022 [address] [facility] CBC AUTO DIFFon 09-26-2022 BASO # 0.1 103/ul Normal 0.0-0.1 [facility] Comment on above: Performed By: #### L ACT #### [facility] [address] [place] [address] Dr. Mirian Velasco Basophils/100 WBC (Bld) 0.8 % Normal 0.2-2.0 [facility] Comment on above: Performed By: #### L ACT #### [facility] [address] [address] [address] Mirian Velasco EO # 0.1 103/ul Normal 0.0-0.7 The [facility] Comment on above: Performed By: #### L ACT #### [facility] [address] [address] [address] Mirian Velasco Eosinophils/100 WBC (Bld) 1.5 % Normal 0.9-7.0 [facility] Comment on above: Performed By: #### L ACT #### [facility] [address] [address] [address] Mirian Velasco Erythrocyte distribution width (RBC) [Ratio] 13.4 % Normal 11.0-15.0 [facility] Comment on above: Performed By: #### L ACT #### [facility] [address] [place] [address] Dr. Mirian Velasco Hematocrit (Bld) [Volume fraction] 41.3 % Normal 36.0-48.0 [facility] Comment on above: Performed By: #### L ACT #### [facility] [address] [place] [address] Dr. Mirian Velasco Hemoglobin (Bld) [Mass/Vol] 13.4 g/dL Normal 12.0-16.0 [facility] Comment on above: Performed By: #### L ACT #### [facility] [address] [place] [address] Dr. Mirian Velasco IG # 0.04 10e3/ul Critically high 0.00-0.03 [facility] Comment on above: Performed By: #### L ACT #### [facility] [address] [place] [address] Dr. Mirian Velasco IG % 0.5 % Normal 0.0-0.5 [facility] Comment on above: Performed By: #### L ACT #### [facility] [address] [place] [address] Dr. Mirian Velasco LYMPH # 2.5 103/ul Normal 1.2-3.8 [facility] Comment on above: Performed By: #### L ACT #### [facility] [address] [place] [address] Dr. Mirian Velasco Lymphocytes/100 WBC (Bld) 27.7 % Normal 20.5-60.0 [facility] Comment on above: Performed By: #### L ACT #### [facility] [address] [place] [address] Dr. Mirian Velasco MANUAL DIFF REQ NO Normal [facility] Comment on above: Performed By: #### L ACT #### [facility] [address] [place] [address] Dr. Mirian Velasco MCH (RBC) [Entitic mass] 27.6 pg Normal 26.7-34.0 [facility] Comment on above: Performed By: #### L ACT #### [facility] [address] [address] [address] Mirian Velasco MCHC (RBC) [Mass/Vol] 32.4 g/dL Normal 29.9-35.2 [facility] Comment on above: Performed By: #### L ACT #### [facility] [address] [address] [address] Mirian Velasco MCV (RBC) [Entitic vol] 85.0 fL Normal 81.0-99.0 [facility] Comment on above: Performed By: #### L ACT #### [facility] [address] [address] [address] Mirian Velasco MONO # 0.6 103/ul Normal 0.3-0.8 [facility] Comment on above: Performed By: #### L ACT #### [facility] [address] [place] [address] Dr. Mirian Velasco Monocytes/100 WBC (Bld) 6.9 % Normal 1.7-12.0 [facility] Comment on above: Performed By: #### L ACT #### [facility] [address] [address] [address] Mirian Velasco NEUT # 5.6 103/ul Normal 1.4-6.5 [facility] Comment on above: Performed By: #### L ACT #### [facility] [address] [address] [address] Mirian Velasco Neutrophils/100 WBC (Bld) 62.6 % Normal 43.0-75.0 The [facility] Comment on above: Performed By: #### L ACT #### [facility] [address] [address] [address] Mirian Velasco Platelet mean volume (Bld) [Entitic vol] 8.6 fL Critically low 9.5-13.5 [facility] Comment on above: Performed By: #### L ACT #### [facility] [address] [address] [address] Mirian Velasco PLT 372 103/ul Normal 150-450 The [facility] Comment on above: Performed By: #### L ACT #### [facility] [address] [place] [address] Dr. Mirian Velasco RBC 4.86 106/ul Normal 4.20-5.40 [facility] Comment on above: Performed By: #### L ACT #### [facility] [address] [place] [address] Dr. Mirian Velasco WBC 8.9 103/ul Normal 4.0-11.0 [facility] Comment on above: Performed By: #### L ACT #### [facility] [address] [place] [address] Dr. Mirian Velasco PROF CHEM 8 (BAS METB)on Anion gap [Moles/Vol] 8.0 mmol/L Normal [facility] Comment on above: Performed By: #### P T #### [facility] [address] [place] [address] Dr. Mirian Velasco Calcium [Mass/Vol] 9.0 mg/dL Normal 8.5-10.1 [facility] Comment on above: Performed By: #### P T #### [facility] [address] [place] [address] Dr. Mirian Velasco Chloride [Moles/Vol] 106 mmol/L Normal 98-107 [facility] Comment on above: Performed By: #### P T #### [facility] [address] [place] [address] Dr. Mirian Velasco CO2 [Moles/Vol] 30.3 mmol/L Normal 21.0-32.0 [facility] Comment on above: Performed By: #### P T #### [facility] [address] [place] [address] Dr. Mirian Velasco Creatinine [Mass/Vol] 0.71 mg/dL Normal 0.55-1.02 [facility] Comment on above: Performed By: #### P T #### [facility] [address] [place] [address] Dr. Mirian Velasco EGFR-AF [employer] >60 Normal >=60 [facility] Comment on above: Performed By: #### P T #### [facility] [address] [address] [address] Mirian Velasco EGFR-NON AF [employer] >60 Normal >=60 The [facility] Comment on above: Performed By: #### P T #### [facility] [address] [address] [address] Mirian Velasco Glucose [Mass/Vol] 81 mg/dL Normal 74-[address] [facility] Comment on above: Performed By: #### P T #### [facility] [address] [address] [address] Mirian Velasco Potassium [Moles/Vol] 4.3 mmol/L Normal 3.5-5.1 [facility] Comment on above: Performed By: #### P T #### [facility] [address] [address] [address] Mirian Velasco Sodium [Moles/Vol] 140 mmol/L Normal 136-[address] [facility] Comment on above: Performed By: #### P T #### [facility] [address] [address] [address] Mirian Velasco Urea nitrogen [Mass/Vol] 16.0 mg/dL Normal 7.0-18.0 [facility] Comment on above: Performed By: #### P T #### [facility] [address] [address] [address] Mirian Velasco Urea nitrogen/Creatinine [Mass ratio] 22.5 mg/mg Normal [facility] Comment on above: Performed By: #### P T #### [facility] [address] [address] [address] Mirian Velasco C reactive protein [Mass/vol ume] in Serum or PlasmaOrdered By: Beto Snyder on 09-22-2022 CRP [Mass/Vol] 0.6 mg/dL 0.0-1.0 [facility] C-Reactive Proteinon 022 C-Reactive Protein 0.6 mg/dL Normal 0.0-1.0 mg/dL [facility] [email or web address] Other Erythrocyte Sedimentation Ra lian 09-22-2022 ESR (Bld) [Velocity] 4 mm/h Normal 0-29 [email or web address] [email or web address] Other Erythrocyte sedimentation ra te by Photometric methodOrdered By: Beto Snyder on 09-22-2022 ESR Photometric method (Bld) [Velocity] 4 mm/hr 0-29 [facility] Serum nuclear antibody titer Ordered By: Beto Snyder on 09-22-2022 Nuclear Ab (S) [Titer] Negative . [facility] Comment on above: Negative <1:80 Borde rline 1:80 Positive >1:80ICAP nomenclature: AC-0For more information about Hep-2 cell patterns useANApatterns.org, the official website for theInternational Consensus on Antinuclear Antibody (CHUYITA)Patterns (ICAP).Performed at: [facility] [address] [id number] Director: Erick Neville PhD, Phone: [phone] Serum or plasma rheumatoid f actor measurement (units/volume)Ordered By: Beto Snyder on 09-22-2022 Rheumatoid factor Qn [IU]/mL <14.0 [facility] Comment on above: Performed at: [facility] [address] [id number] Director: Erick Neville PhD, Phone: [phone] Serum or plasma thyroxine (T 4) measurement (mass/volume)Ordered By: Beto Snyder on 09-22-2022 T4 [Mass/Vol] 9.82 ug/dL 5.39-11.82 [facility] Serum or plasma uric acid me asurement (mass/volume)Ordered By: Beto Snyder on 09-22-2022 Urate [Mass/Vol] 4.2 mg/dL 2.6-7.2 [facility] TSH DL <= 0.005 mIU/L QnOrde red By: Beto Snyder on 09-22-2022 TSH Qn 1.98 m[IU]/L 0.45-5.33 [facility] Thyroid Stimulating Hormoneo n 09-22-2022 TSH Qn 1.37168338277 m[IU]/L Normal 0.45-5 .33 u[iU]/mL [email or web address] [email or web address] Other Thyroxine (T4) Totalon 09-22 Thyroxine (T4) Total 9.82 ug/dL Normal 5.39-11 .82 ug/dL [employer] Other Uric Acidon 09-22-2022 Urate [Mass/Vol] 4.8867410 mg/dL Normal 2.6-7.2 mg/dL [employer] Other XR knee BI 2Von 09-22-2022 XR knee BI 2V [facility] [email or web address] Other XR knee BI 2V [facility] [email or web address] Other XR knee BI 2V [address] [place] [address] [email or web address] Other [place] [address] [address] [facility] [email or web address] Other XR knee BI 2V XRay Report [facility] [employer] Other XR knee BI 2V Signed [employer] Other XR knee BI 2V Patient: Darrian Leal jonathan Keys MR#: [id number] [email or web address] [email or web address] Other XR knee BI 2V 863 [employer] Other XR knee BI 2V : 1970 Acct:[id number] [employer] Other XR knee BI 2V Age/Sex: 52 / F ADM Date: 09/22/22 [employer] Other XR knee BI 2V Loc: [facility] Room: Type : [facility] [employer] Other XR knee BI 2V Attending Dr: Beto Snyder MD [employer] Other XR knee BI 2V Copies to: Beto Snyder MD [employer] Other XR knee BI 2V Ordering Provider: Beto Snyder MD [employer] Other XR knee BI 2V Date of Service: 09/22/22 [employer] Other XR knee BI 2V XR/XR knee BI 2V: Knee pain [employer] Other XR knee BI 2V XR knee BI 2V 09/22/2022 9:23 AM [employer] Other XR knee BI 2V SIGNS AND SYMPTOMS: Bilateral knee pain right greater than left [employer] Other XR knee BI 2V PROTOCOL: Frontal an d lateral radiographs of the bilateral knees [employer] Other XR knee BI 2V COMPARISON: None [employer] Other XR knee BI 2V FINDINGS: [employer] Other XR knee BI 2V There is evidence of prior ACL repair in the left knee with mild narrowing of the weightbearing [employer] Other XR knee BI 2V joint spaces on the left. The joint spaces are otherwise preserved. There is no fracture or [employer] Other XR knee BI 2V dislocation. No join t effusion or soft tissue swelling. [employer] Other XR knee BI 2V XR/XR knee BI 2V [employer] Other XR knee BI 2V IMPRESSION: [facility] [employer] Other XR knee BI 2V Status post ACL repa ir on the left. [employer] Other XR knee BI 2V Mild degenerative changes are noted in the weightbearing joint spaces of the left. [employer] Other XR knee BI 2V No acute bony injury. [employer] Other XR knee BI 2V Impression dictated by: Howie Garcia M.D.09/22/2022 2:17 PM [employer] Other XR knee BI 2V Dictation Location: [place] [address] [employer] Other XR knee BI 2V Transcribed By: PWS 09/22/22 1417 [employer] Other XR knee BI 2V Dictated By: Howie Garcia II, MD 09/22/22 1415 [employer] Other XR knee BI 2V Signed By: [employer] Other XR knee BI 2V 09/22/22 1417 [employer] Other XR shoulder BI min 2Von 09-06 XR shoulder BI min 2V XR/XR shoulder BI min 2V: Shoulder pain [employer] Other XR shoulder BI min 2V XR shoulder BI min 2V 09/22/2022 9:23 AM [employer] Other XR shoulder BI min 2V SIGNS AND SYMPTOMS : Bilateral shoulder pain with limited range of motion [employer] Other XR shoulder BI min 2V PROTOCOL: Frontal, Grashey, scapular Y, and axillary views of the bilateral shoulders [employer] Other XR shoulder BI min 2V COMPARISON: 02/26/2018 [employer] Other XR shoulder BI min 2V There has been bon y resorption of the lateral margin of the clavicle on the right suggesting [employer] Other XR shoulder BI min 2V osteomyelitis is w hich may be degenerative or traumatic. Mild hypertrophy of the AC joint is noted. [employer] Other XR shoulder BI min 2V The glenohumeral j oint is preserved on the right. There is subcortical sclerosis greater tuberosity [employer] Other XR shoulder BI min 2V of the right suggesting underlying rotator cuff abnormalities. This is new when compared to the [employer] Other XR shoulder BI min 2V prior exam. The visualized right hemithorax is grossly intact. [employer] Other XR shoulder BI min 2V There is mild hypertrophy of the left acromioclavicular joint. There is mild subcortical sclerosis [employer] Other XR shoulder BI min 2V of the greater tuberosity in the left suggesting underlying rotator cuff abnormalities. The [employer] Other XR shoulder BI min 2V glenohumeral joint is preserved. There is no fracture or dislocation. Visualized left hemithorax is [employer] Other XR shoulder BI min 2V grossly intact. [employer] Other XR shoulder BI min 2V There is partial visualization of intervertebral disc arthroplasty is noted within the lower [employer] Other XR shoulder BI min 2V cervical spine. Rudimentary ribs are noted at C7, right greater than left [employer] Other XR shoulder BI min 2V XR/XR shoulder BI min 2V [employer] Other XR shoulder BI min 2V Degenerative velasco es are noted in the bilateral shoulders with findings suspicious for bilateral [employer] Other XR shoulder BI min 2V rotator cuff abnormalities as above. 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 [employer] Other XR shoulder BI min 2V Rudimentary ribs a re noted at C7, right greater than left [employer] Other XR shoulder BI min 2V Impression dictate d by: Howie Garcia M.D.09/22/2022 2:20 PM [employer] Other XR shoulder BI min 2V Transcribed By: KT Thorpe 09/22/22 1420 [employer] Other XR shoulder BI min 2V Dictated By: Howie Garcia II, MD 09/22/22 1417 [employer] Other XR shoulder BI min 2V 09/22/22 1420 [employer] Other SCREENING MAMMOGRAM W/RUSSEL, BILATERAL*on 09-14-2022 SCREENING [...] IS VERY IMPORTANT TO YOUR HEALTH. CURRENT [employer] GUIDELINES RECOMMENDS ANNUAL MAMMOGRAPHY BEGINNING AT AGE 42. THIS FACILITY USUALLY USES A REMINDER SYSTEM TO ENSURE ALL POSITIONS RECEIVED REMINDER NOTIFICATIONS AT THE TIME BASED ON THE RECOMMENDATIONS OF THIS EXAM. Report reported and signed by Zaida Diaz on 09/16/2022 1334 Normal [facility] Registered Travel Nurse Tobacco Screening.on 022 Adult depression screening assessment No [facility] [address] DO Work Phone: Tobacco use status [facility] b) No [facility] 250 DO Work Phone: COVID Quick Testingon 2021 Result Negative [employer] Other AMYLASEon 04-17-2022 Amylase [Catalytic activity/Vol] 38 U/L Normal 25-115 [facility] Comment on above: Performed By: #### P T #### [facility] [address] [address] [address] Mirian Velasco CBC AUTO DIFFon 04-17-2022 BASO # 0.1 103/ul Normal 0.0-0.1 [facility] Comment on above: Performed By: #### L ACT #### [facility] [address] [place] [address] Dr. Mirian Velasco Basophils/100 WBC (Bld) 1.0 % Normal 0.2-2.0 [facility] Comment on above: Performed By: #### L ACT #### [facility] [address] [place] [address] Dr. Mirian Velasco EO # 0.2 103/ul Normal 0.0-0.7 [facility] Comment on above: Performed By: #### L ACT #### [facility] [address] [place] [address] Dr. Mirian Velasco Eosinophils/100 WBC (Bld) 3.3 % Normal 0.9-7.0 [facility] Comment on above: Performed By: #### L ACT #### [facility] [address] [place] [address] Dr. Mirian Velasco Erythrocyte distribution width (RBC) [Ratio] 12.0 % Normal 11.0-15.0 [facility] Comment on above: Performed By: #### L ACT #### [facility] [address] [place] [address] Dr. Mirian Velasco Hematocrit (Bld) [Volume fraction] 37.3 % Normal 36.0-48.0 [facility] Comment on above: Performed By: #### L ACT #### [facility] [address] [place] [address] Dr. Mirian Velasco Hemoglobin (Bld) [Mass/Vol] 12.1 g/dL Normal 12.0-16.0 [facility] Comment on above: Performed By: #### L ACT #### [facility] [address] [place] [address] Dr. Mirian Velasco IG # 0.03 10e3/ul Normal 0.00-0.03 [facility] Comment on above: Performed By: #### L ACT #### [facility] [address] [place] [address] Dr. Mirian Velasco IG % 0.4 % Normal 0.0-0.5 [facility] Comment on above: Performed By: #### L ACT #### [facility] [address] [address] [address] Mirian Velasco LYMPH # 1.8 103/ul Normal 1.2-3.8 The [facility] Comment on above: Performed By: #### L ACT #### [facility] [address] [address] [address] Mirian Velasco Lymphocytes/100 WBC (Bld) 25.2 % Normal 20.5-60.0 [facility] Comment on above: Performed By: #### L ACT #### [facility] [address] [place] [address] Dr. Mirian Velasco MANUAL DIFF REQ NO Normal [facility] Comment on above: Performed By: #### L ACT #### [facility] [address] [place] [address] Dr. Mirian Velasco MCH (RBC) [Entitic mass] 29.0 pg Normal 26.7-34.0 [facility] Comment on above: Performed By: #### L ACT #### [facility] [address] [place] [address] Dr. Mirian Velasco MCHC (RBC) [Mass/Vol] 32.4 g/dL Normal 29.9-35.2 [facility] Comment on above: Performed By: #### L ACT #### [facility] [address] [place] [address] Dr. Mirian Velasco MCV (RBC) [Entitic vol] 89.4 fL Normal 81.0-99.0 [facility] [facility] Comment on above: Performed By: #### L ACT #### [facility] [address] [place] [address] Dr. Mirian Velasco MONO # 0.4 103/ul Normal 0.3-0.8 [facility] Comment on above: Performed By: #### L ACT #### [facility] [address] [place] [address] Dr. Mirian Velasco Monocytes/100 WBC (Bld) 5.8 % Normal 1.7-12.0 The [facility] Comment on above: Performed By: #### L ACT #### [facility] [address] [address] [address] Mirian Velasco NEUT # 4.6 103/ul Normal 1.4-6.5 The [facility] Comment on above: Performed By: #### L ACT #### [facility] [address] [address] [address] Mirian Velasco Neutrophils/100 WBC (Bld) 64.3 % Normal 43.0-75.0 The [facility] Comment on above: Performed By: #### L ACT #### [facility] [address] [address] [address] Mirian Velasco Platelet mean volume (Bld) [Entitic vol] 8.6 fL Critically low 9.5-13.5 The [facility] Comment on above: Performed By: #### L ACT #### [facility] [address] [place] [address] Dr. Mirian Velasco PLT 597 103/ul Critically high 150-450 [facility] Comment on above: Performed By: #### L ACT #### [facility] [address] [place] [address] Dr. Mirian Velasco RBC 4.17 106/ul Critically low 4.20-5.40 [facility] Comment on above: Performed By: #### L ACT #### [facility] [address] [place] [address] Dr. Mirian Velasco WBC 7.2 103/ul Normal 4.0-11.0 The [facility] Comment on above: Performed By: #### L ACT #### [facility] [address] [address] [address] ABD/PELVIS WO CONon [...] by: MAKENNA TRIPLETT Date: 2022-04-17 11:19 Normal [facility] ER URINE PROFILEon 2 Bilirubin Ql (U) Negative Normal NEGATIVE [facility] Comment on above: Performed By: #### P T #### [facility] [address] [address] [address] Mirian Velasco Clarity (U) CLEAR Normal CLEAR [facility] Comment on above: Performed By: #### P T #### [facility] [address] [address] [address] Mirian Velasco Color (U) YELLOW Normal YELLOW [facility] Comment on above: Performed By: #### P T #### [facility] [address] [address] [address] Mirian Velasco ERURAVI A micrscopic examination will be performed if indicated. Normal [facility] Comment on above: Performed By: #### P T #### [facility] [address] [address] [address] Mirian Velasco Glucose Ql (U) Negative Normal NEGATIVE [facility] Comment on above: Performed By: #### P T #### [facility] [address] [place] [address] Dr. Mirian Velasco Hemoglobin Ql (U) Negative Normal NEGATIVE [facility] Comment on above: Performed By: #### P T #### [facility] [address] [place] [address] Dr. Mirian Velasco Ketones Ql (U) Negative Normal NEGATIVE [facility] Comment on above: Performed By: #### P T #### [facility] [address] [place] [address] Dr. Mirian Velasco LEUKOCYTES Negative Normal NEGATIVE [facility] Comment on above: Performed By: #### P T #### [facility] [address] [place] [address] Dr. Mirian Velasco Nitrite Ql (U) Negative Normal NEGATIVE [facility] Comment on above: Performed By: #### P T #### [facility] [address] [place] [address] Dr. Mirian Velasco pH (U) 5.5 [pH] Normal 5-9 [facility] Comment on above: Performed By: #### P T #### [facility] [address] [place] [address] Dr. Mirian Velasco SPEC GRAVITY >=1.030 Abnormal 1.005-<=1.025 [facility] Comment on above: Performed By: #### P T #### [facility] [address] [place] [address] Dr. Mirian Velasco UA PROTEIN Negative Normal NEGATIVE/ TRACE [facility] Comment on above: Performed By: #### P T #### [facility] [address] [place] [address] Dr. Mirian Velasco UR MICRO IND NOT INDICATED Normal [facility] Comment on above: Performed By: #### P T #### [facility] [address] [place] [address] Dr. Mirian Velasco Urobilinogen Qn (U) 0.2 {Lyubov'U}/dL Normal 0.2 - 1. 0 [facility] Comment on above: Performed By: #### P T #### [facility] [address] [place] [address] Dr. Mirian Velasco LIPASEon 04-17-2022 Lipase [Catalytic activity/Vol] 117.0 U/L Normal 73.0-393.0 [facility] Comment on above: Performed By: #### P T #### [facility] [address] [place] [address] Dr. Mirian Velasco PROF 14(COMP METB)on 022 Albumin [Mass/Vol] 3.5 g/dL Normal 3.4-5.0 [facility] Comment on above: Performed By: #### P T #### [facility] [address] [place] [address] Dr. Mirian Velasco Albumin/Globulin [Mass ratio] 0.9 {ratio} Normal [facility] Comment on above: Performed By: #### P T #### [facility] [address] [place] [address] Dr. Mirian Velasco ALP [Catalytic activity/Vol] 237 U/L Critically high 46-116 [facility] Comment on above: Performed By: #### P T #### [facility] [address] [place] [address] Dr. Mirian Velasco ALT [Catalytic activity/Vol] 53 U/L Normal 14-59 [facility] Comment on above: Performed By: #### P T #### [facility] [address] [place] [address] Dr. Mirian Velasco Anion gap [Moles/Vol] 11.0 mmol/L Normal [facility] Comment on above: Performed By: #### P T #### [facility] [address] [place] [address] Dr. Mirian Velasco AST [Catalytic activity/Vol] 45 U/L Critically high 15-37 [facility] Comment on above: Performed By: #### P T #### [facility] [address] [place] [address] Dr. Mirian Velasco Bilirubin [Mass/Vol] 0.2 mg/dL Normal 0.2-1.0 [facility] Comment on above: Performed By: #### P T #### [facility] [address] [address] [address] Mirian Velasco Calcium [Mass/Vol] 9.3 mg/dL Normal 8.5-10.1 [facility] Comment on above: Performed By: #### P T #### [facility] [address] [address] [address] Mirian Velasco Chloride [Moles/Vol] 105 mmol/L Normal 98-107 [facility] Comment on above: Performed By: #### P T #### [facility] [address] [place] [address] Dr. Mirian Velasco CO2 [Moles/Vol] 29.5 mmol/L Normal 21.0-32.[address] [facility] Comment on above: Performed By: #### P T #### [facility] [address] [place] [address] Dr. Mirian Velasco Creatinine [Mass/Vol] 0.69 mg/dL Normal 0.55-1.02 [facility] Comment on above: Performed By: #### P T #### [facility] [address] [place] [address] Dr. Mirian Velasco EGFR-AF AZERBAIJANI >110 Normal >=[address] [facility] Comment on above: Performed By: #### P T #### [facility] [address] [address] [address] Mirian Velasco EGFR-NON AF AZERBAIJANI >90 Normal >=60 [facility] Comment on above: Performed By: #### P T #### [facility] [address] [address] [address] Mirian Velasco Globulin (S) [Mass/Vol] 4.0 g/dL Normal [facility] Comment on above: Performed By: #### P T #### [facility] [address] [place] [address] Dr. Mirian Velasco Glucose [Mass/Vol] 107 mg/dL Critically high 74-106 [place] Comment on above: Performed By: #### P T #### [facility] [address] [place], [place] [address] Dr. Mirian Velasco Potassium [Moles/Vol] 4.5 mmol/L Normal 3.5-5.1 [facility] Comment on above: Performed By: #### P T #### [facility] [address] [address] [address] Mirian Velasco Protein [Mass/Vol] 7.5 g/dL Normal 6.4-8.2 [facility] Comment on above: Performed By: #### P T #### [facility] [address] [address] [address] Mirian Velasco Sodium [Moles/Vol] 141 mmol/L Normal 136-145 [facility] Comment on above: Performed By: #### P T #### [facility] [address] [address] [address] Mirian Velasco Urea nitrogen [Mass/Vol] 11.0 mg/dL Normal 7.0-18.0 [facility] Comment on above: Performed By: #### P T #### [facility] [address] [address] [address] Mirian Velasco Urea nitrogen/Creatinine [Mass ratio] 15.9 mg/mg Normal [facility] Comment on above: Performed By: #### P T #### [facility] [address] [address] [address] Mirian Velasco XR CHEST 1 Von 04-17-2022 XR CHEST 1 V EXAM: Chest x-ray HISTORY: Pain. COMPARISON: 02/20/2022 TECHNIQUE: AP portable upright view of the chest. FINDINGS: Heart and Vascularity are unremarkable. Lungs are free of focal infiltrates. No effusions are noted. Impression: No acute heart or lung disease identified. Electronically authenticated by: NICKI BUTT Date: 2022-04-17 11:03 Normal [facility] Basic metabolic 2000 panelon 04-05-2022 Anion gap [Moles/Vol] 13 mmol/L Normal 9-18 [facility] Comment on above: Order Comment: Speci men Type: BLOOD SPECIMEN Ordering Facility: [facility] Address: [address] [place], [place] [id number] Performed By: #### 5 8410-2 #### [facility] CLIA [id number] [address] [place] [address] [place] Calcium [Mass/Vol] 9.0 mg/dL Normal 8.5-10.2 [facility] Comment on above: Order Comment: Speci men Type: BLOOD SPECIMEN Ordering Facility: [facility] Address: [address] [place] [address] Performed By: #### 5 8410-2 #### [facility] CLIA [id number] [address] [place] [address] [place] Chloride [Moles/Vol] 104 mmol/L Normal 97-105 [facility] Comment on above: Order Comment: Speci men Type: BLOOD SPECIMEN Ordering Facility: [facility] Address: [address] [place] [address] Performed By: #### 5 8410-2 #### [facility] CLIA [id number] [address] [place] [address] [place] CO2 [Moles/Vol] 25 mmol/L Normal 22-30 [facility] Comment on above: Order Comment: Speci men Type: BLOOD SPECIMEN Ordering Facility: [facility] Address: [address] [place] [address] Performed By: #### 5 8410-2 #### [facility] CLIA [id number] [address] [place] [address] [place] Creatinine [Mass/Vol] 0.65 mg/dL Normal 0.58-0.96 [facility] Comment on above: Order Comment: Speci men Type: BLOOD SPECIMEN Ordering Facility: [facility] Address: [address] [place] [address] Performed By: #### 5 8410-2 #### [facility] CLIA [id number] [place] [address] [place] ESTIMATED GLOMERULAR FILTRATION RATE 108 mL/min/1.73m??? Normal >=60 [facility] Comment on above: Order Comment: Speci men Type: BLOOD SPECIMEN Ordering Facility: [facility] Address: [address] [place], [place] [phone] Result Comment: Mary mated Glomerular Filtration Rate [...] GFR. Performed By: #### 5 8410-2 #### [facility] CLIA [id number] [place] [address] [place] Glucose [Mass/Vol] 109 mg/dL High 74-99 [facility] Comment on above: Order Comment: Leanne terry Type: BLOOD SPECIMEN Ordering Facility: [facility] Address: [address] [place] [address] Result Comment: The [place] [employer] (ADA) [...] 1). Performed By: #### 5 8410-2 #### [facility] CLIA [id number] [place] [address] [place] Potassium [Moles/Vol] 3.9 mmol/L Normal 3.7-5.1 [facility] Comment on above: Order Comment: Leanne terry Type: BLOOD SPECIMEN Ordering Facility: [facility] Address: [address] [place], [place] [phone] Performed By: #### 5 8410-2 #### [facility] CLIA [id number] [address] [place] [address] [place] Sodium [Moles/Vol] 142 mmol/L Normal 136-144 [facility] Comment on above: Order Comment: Speci men Type: BLOOD SPECIMEN Ordering Facility: [facility] Address: [address] [place] [address] Performed By: #### 5 8410-2 #### [facility] CLIA [id number] [address] [place] [address] [place] Urea nitrogen [Mass/Vol] 7 mg/dL Normal 7-21 [facility] Comment on above: Order Comment: Speci men Type: BLOOD SPECIMEN Ordering Facility: [facility] Address: [address] [place] [address] Performed By: #### 5 8410-2 #### [facility] CLIA [id number] [address] [place] [address] [place] CBC W Auto Differential pane l (Bld)on 04-05-2022 Basophils (Bld) [#/Vol] 0.05 10*3/uL Normal <0.11 [facility] Comment on above: Order Comment: Speci men Type: BLOOD SPECIMENOrdering Facility: [facility] Address: [address] [place] [address] Performed By: #### B MP #### [place] [phone] Basophils/100 WBC (Bld) 0.7 % Normal [facility] Comment on above: Order Comment: Speci men Type: BLOOD SPECIMENOrdering Facility: [facility] Address: [address] [place] [address] Performed By: #### B MP #### [place] [address] Differential cell count method Nom (Bld) Auto Normal [facility] Comment on above: Order Comment: Speci men Type: BLOOD SPECIMENOrdering Facility: [facility] Address: [address] [place] [address] Performed By: #### B MP #### [place] [phone] Eosinophils (Bld) [#/Vol] 0.55 10*3/uL High <0.46 [facility] Comment on above: Order Comment: Speci men Type: BLOOD SPECIMENOrdering Facility: [facility] Address: [address] [place] [address] Performed By: #### B MP #### [place] [id number] Eosinophils/100 WBC (Bld) 8.2 % Normal [facility] Comment on above: Order Comment: Speci men Type: BLOOD SPECIMENOrdering Facility: [facility] Address: [address] [place] [address] Performed By: #### B MP #### [place] [id number] Erythrocyte distribution width (RBC) [Ratio] 12.8 % Normal 11.5-15.0 [facility] Comment on above: Order Comment: Speci men Type: BLOOD SPECIMENOrdering Facility: [facility] Address: [address] [place] [address] Performed By: #### B MP #### [place] [phone] Hematocrit (Bld) [Volume fraction] 31.1 % Low 36.0-46.0 [facility] Comment on above: Order Comment: Speci men Type: BLOOD SPECIMENOrdering Facility: [facility] Address: [address] [place] [address] Performed By: #### B MP #### [place] [id number] Hemoglobin (Bld) [Mass/Vol] 10.5 g/dL Low 11.5-15.5 [facility] Comment on above: Order Comment: Speci men Type: BLOOD SPECIMENOrdering Facility: [facility] Address: [address] [place] [address] Performed By: #### B MP #### [place] [id number] IMMATURE GRAN % 0.4 % Normal [facility] Comment on above: Order Comment: Speci men Type: BLOOD SPECIMENOrdering Facility: [facility] Address: [address] [place] [address] Performed By: #### B MP #### [place] [address] IMMATURE GRAN ABS 0.03 k/uL Normal <0.10 [facility] Comment on above: Order Comment: Speci men Type: BLOOD SPECIMENOrdering Facility: [facility] Address: [address] [place] [address] Performed By: #### B MP #### [phone] Lymphocytes (Bld) [#/Vol] 1.47 10*3/uL Normal 1.00-4.00 [facility] Comment on above: Order Comment: Speci men Type: BLOOD SPECIMENOrdering Facility: [facility] Address: [address] [place] [address] Performed By: #### B MP #### [phone] Lymphocytes/100 WBC (Bld) 22.0 % Normal [facility] Comment on above: Order Comment: Speci men Type: BLOOD SPECIMENOrdering Facility: [facility] Address: [address] [place] [address] Performed By: #### B MP #### [phone] MCH (RBC) [Entitic mass] 29.9 pg Normal 26.0-34.0 [facility] Comment on above: Order Comment: Speci men Type: BLOOD SPECIMENOrdering Facility: [facility] Address: [address] [place] [address] Performed By: #### B MP #### [place] [phone] MCHC (RBC) [Mass/Vol] 33.8 g/dL Normal 30.5-36.0 [facility] Comment on above: Order Comment: Speci men Type: BLOOD SPECIMENOrdering Facility: [facility] Address: [address] [place] [address] Performed By: #### B MP #### [place] [phone] MCV (RBC) [Entitic vol] 88.6 fL Normal 80.0-100.0 [facility] Comment on above: Order Comment: Speci men Type: BLOOD SPECIMENOrdering Facility: [facility] Address: [address] [place] [address] Performed By: #### B MP #### [place] [phone] Monocytes (Bld) [#/Vol] 0.50 10*3/uL Normal <0.87 [facility] Comment on above: Order Comment: Speci men Type: BLOOD SPECIMENOrdering Facility: [facility] Address: [address] [place] [address] Performed By: #### B MP #### [phone] Monocytes/100 WBC (Bld) 7.5 % Normal [facility] Comment on above: Order Comment: Speci men Type: BLOOD SPECIMENOrdering Facility: [facility] Address: [address] [place] [address] Performed By: #### B MP #### [phone] Neutrophils (Bld) [#/Vol] 4.08 10*3/uL Normal 1.45-7.50 [facility] Comment on above: Order Comment: Speci men Type: BLOOD SPECIMENOrdering Facility: [facility] Address: [address] [place] [address] Performed By: #### B MP #### [place] [phone] Neutrophils/100 WBC (Bld) 61.2 % Normal [facility] Comment on above: Order Comment: Speci men Type: BLOOD SPECIMENOrdering Facility: [facility] Address: [address] [place] [address] Performed By: #### B MP #### [place] [phone] Nucleated RBC (Bld) [#/Vol] 10*3/uL Normal <0.01 [facility] Comment on above: Order Comment: Speci men Type: BLOOD SPECIMENOrdering Facility: [facility] Address: [address] [place] [address] Performed By: #### B MP #### [phone] Nucleated RBC/100 WBC (Bld) [Ratio] 0.0 /100 WBC Normal [facility] Comment on above: Order Comment: Speci men Type: BLOOD SPECIMENOrdering Facility: [facility] Address: [address] [place] [address] Performed By: #### B MP #### [place] [phone] Platelet mean volume (Bld) [Entitic vol] 8.9 fL Low 9.0-12.7 [facility] Comment on above: Order Comment: Speci men Type: BLOOD SPECIMENOrdering Facility: [facility] Address: [address] [place] [address] Performed By: #### B MP #### [place] [phone] Platelets (Bld) [#/Vol] 455 10*3/uL High 150-400 [facility] Comment on above: Order Comment: Speci men Type: BLOOD SPECIMENOrdering Facility: [facility] Address: [address] [place] [address] Performed By: #### B MP #### [place] [address] RBC (Bld) [#/Vol] 3.51 10*6/uL Low 3.90-5.20 [facility] Comment on above: Order Comment: Speci men Type: BLOOD SPECIMENOrdering Facility: [facility] Address: [address] [place], [place] [address], [place] [address] Performed By: #### B MP #### [place] [id number] [place] [address] WBC (Bld) [#/Vol] 6.68 10*3/uL Normal 3.70-11.00 [facility] Comment on above: Order Comment: Speci men Type: BLOOD SPECIMENOrdering Facility: [facility] Address: [address] [facility] [phone] Performed By: #### B MP #### [place] [address] CNDSon 04-05-2022 CNDS HNO ID: [id number] Author: Jessi Sheets APRN.AIR TUCKER Service: Colorectal Author Type: Nurse Practitioner Type: Discharge Summary Filed: 04/05/2022 11:10 AM Note Text: Attestation signed by Mary Obrien MD at 04/05/2022 12:54 PM [facility] STAFF PHYSICIAN NOTE OF PERSONAL INVOLVEMENT IN [...] of the summary. CONSULTING TEAMS DURING HOSPITALIZATION: [facility] Treatment Team: Attending Provider: Mary [...] only. 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 Remained nauseated. POD4 re-advanced to full liquids [...] by mo (more content not included)... Normal [facility] Magnesium SerPl-mCncon 04-05 Magnesium [Mass/Vol] 2.0 mg/dL Normal 1.7-2.3 [facility] Comment on above: Order Comment: Speci men Type: BLOOD SPECIMEN Ordering Facility: [facility] Address: [address] [place] [address] Performed By: #### 5 8410-2 #### [facility] CLIA [id number] [address] [place] [address] [place] NURSING PROGon 04-05-2022 NURSING PROG HNO ID: [id number] Author: Liliana Mayer RN Service: ? 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 This note was completed by: Liliana Mayer [facility] NURSING PROG HNO ID: [id number] Author: Liliana Mayer RN Service: ? Author [...] This note was completed by: Liliana Mayer [facility] NURSING PROG HNO ID: [id number] Author: Tez Gu RN Service: ? Author Type: Registered Nurse Type: Nursing Progress Note Filed: 04/04/2022 10:58 PM Note Text: Nursing Progress Note Patient Name: Mary Leal Patient Location: / __ Daily Note:04/04/22 2140 Pt is alert and oriented x3. Pt mabulating independently. Surgical sites intact. Pt refusing IVF, pt states she drinks enough water. This note was completed by: Tez Langford [facility] NUTRITIONon 04-05-2022 NUTRITION HNO ID: [id number] Author: Merced Morales DTR Service: Nutrition Therapy Author Type: Energy Sales Broker Type: Nutrition Filed: 04/05/2022 10:42 AM Note Text: NUTRITION THERAPY DIE CUTTER OPERATOR NOTE SERVICE DATE: 04/05/2022 SERVICE TIME: [...] April 05, 2022 TIME: 9:54 AM Normal [facility] Phosphate SerPl-mCncon 04-05 Phosphate [Mass/Vol] 4.6 mg/dL Normal 2.7-4.8 [facility] Comment on above: Order Comment: Speci men Type: BLOOD SPECIMEN Ordering Facility: [facility] Address: [address] [place] [address] Performed By: #### 5 8410-2 #### [facility] CLIA [id number] [address] [place] [id number] [place] Basic metabolic 2000 panelon 04-04-2022 Anion gap [Moles/Vol] 10 mmol/L Normal 9-18 [facility] Comment on above: Order Comment: Speci men Type: BLOOD SPECIMENOrdering Facility: [facility] Address: [address] [place] [address] Performed By: #### 2 4321-2, , 2776-11 ####[facility] [id number] [place] [address] [place] Calcium [Mass/Vol] 8.9 mg/dL Normal 8.5-10.2 [facility] Comment on above: Order Comment: Speci men Type: BLOOD SPECIMENOrdering Facility: [facility] Address: [address] [place] [address] Performed By: #### 2 4321-2, , 2776-11 ####[facility] [id number] [place] [address] [place] Chloride [Moles/Vol] 104 mmol/L Normal 97-105 [facility] Comment on above: Order Comment: Speci men Type: BLOOD SPECIMENOrdering Facility: [facility] Address: [address] [place] [address] Performed By: #### 2 4321-2, , 2776-11 ####[facility] [id number] [place] [id number] [place] CO2 [Moles/Vol] 26 mmol/L Normal 22-30 [facility] Comment on above: Order Comment: Speci men Type: BLOOD SPECIMENOrdering Facility: [facility] Address: [address] [place] [phone] Performed By: #### 2 4321-2, , 2776-11 ####[facility] [id number] [place] [address] [place] Creatinine [Mass/Vol] 0.56 mg/dL Low 0.58-0.96 [facility] Comment on above: Order Comment: Speci men Type: BLOOD SPECIMENOrdering Facility: [facility] Address: [address] [place] [address] Performed By: #### 2 4321-2, , 2776-11 ####[facility] [id number] [place] [address] [place] ESTIMATED GLOMERULAR FILTRATION RATE 112 mL/min/1.73m??? Normal >=60 [facility] Comment on above: Order Comment: Speci men Type: BLOOD SPECIMENOrdering Facility: [facility] Address: [address] [place] [address] Result Comment: Mary mated Glomerular Filtration Rate [...] Performed By: #### 2 4321-2, , 2776-11 ####[facility] [id number] [place] [address] [place] Glucose [Mass/Vol] 112 mg/dL High 74-99 [facility] Comment on above: Order Comment: Speci men Type: BLOOD SPECIMENOrdering Facility: [facility] Address: [address] [place], [place] [phone] Result Comment: The [place] [employer] (ADA) [...] Performed By: #### 2 4321-2, , 2776-11 ####[facility] [id number] [place] [address] [place] Potassium [Moles/Vol] 3.9 mmol/L Normal 3.7-5.1 [facility] Comment on above: Order Comment: Leanne terry Type: BLOOD SPECIMENOrdering Facility: [facility] Address: [address] Performed By: #### 2 4321-2, , 2776-11 ####[facility] [id number] [place] [address] [place] Sodium [Moles/Vol] 140 mmol/L Normal 136-144 [facility] Comment on above: Order Comment: Leanne terry Type: BLOOD SPECIMENOrdering Facility: [facility] Address: [address] Performed By: #### 2 4321-2, , 2776-11 ####[facility] [id number] [place] [address] [place] Urea nitrogen [Mass/Vol] 3 mg/dL Low 7-21 [facility] Comment on above: Order Comment: Leanne terry Type: BLOOD SPECIMENOrdering Facility: [facility] Address: [address] Performed By: #### 2 4321-2, , 2776-11 ####[facility] [id number] [place] [address] [place] CBC W Auto Differential pane l (Bld)on 04-04-2022 Basophils (Bld) [#/Vol] 0.03 10*3/uL Normal <0.11 [facility] Comment on above: Order Comment: Speci men Type: BLOOD SPECIMEN Ordering Facility: [facility] Address: [address] [place] [address] Performed By: #### 5 7021-8 #### [facility] CLIA [id number] [address] [place] [address] [place] Basophils/100 WBC (Bld) 0.5 % Normal [facility] Comment on above: Order Comment: Speci men Type: BLOOD SPECIMEN Ordering Facility: [facility] Address: [address] [place] [address] Performed By: #### 5 7021-8 #### [facility] CLIA [id number] [address] [place] [address] [place] Differential cell count method Nom (Bld) Auto Normal [facility] Comment on above: Order Comment: Speci men Type: BLOOD SPECIMEN Ordering Facility: [facility] Address: [address] [place] [address] Performed By: #### 5 7021-8 #### [facility] CLIA [id number] [address] [place] [address] [place] Eosinophils (Bld) [#/Vol] 0.48 10*3/uL High <0.46 [facility] Comment on above: Order Comment: Speci men Type: BLOOD SPECIMEN Ordering Facility: [facility] Address: [address] [place] [address] Performed By: #### 5 7021-8 #### [facility] CLIA [id number] [address] [place] [address] [place] Eosinophils/100 WBC (Bld) 7.7 % Normal [facility] Comment on above: Order Comment: Speci men Type: BLOOD SPECIMEN Ordering Facility: [facility] Address: [address] [place] [address] Performed By: #### 5 7021-8 #### [facility] CLIA [id number] [address] [place] [address] [place] Erythrocyte distribution width (RBC) [Ratio] 12.7 % Normal 11.5-15.0 [facility] Comment on above: Order Comment: Speci men Type: BLOOD SPECIMEN Ordering Facility: [facility] Address: [address] [place] [address] Performed By: #### 5 7021-8 #### [facility] CLIA [id number] [address] [place] [address] [place] Hematocrit (Bld) [Volume fraction] 31.2 % Low 36.0-46.0 [facility] Comment on above: Order Comment: Speci men Type: BLOOD SPECIMEN Ordering Facility: [facility] Address: [address] [place] [address] Performed By: #### 5 7021-8 #### [facility] CLIA [id number] [address] [place] [address] [place] Hemoglobin (Bld) [Mass/Vol] 10.7 g/dL Low 11.5-15.5 [facility] Comment on above: Order Comment: Speci men Type: BLOOD SPECIMEN Ordering Facility: [facility] Address: [address] [place] [address] Performed By: #### 5 7021-8 #### [facility] CLIA [id number] [address] [place] [address] [place] IMMATURE GRAN % 0.5 % Normal [facility] Comment on above: Order Comment: Speci men Type: BLOOD SPECIMEN Ordering Facility: [facility] Address: [address] [place] [address] Performed By: #### 5 7021-8 #### [facility] CLIA [id number] [address] [place] [address] IMMATURE GRAN ABS 0.03 k/uL Normal <0.10 [facility] Comment on above: Order Comment: Speci men Type: BLOOD SPECIMEN Ordering Facility: [facility] Address: [address] [place] [address] Performed By: #### 5 7021-8 #### [facility] CLIA [id number] [address] [place] [address] [place] Lymphocytes (Bld) [#/Vol] 1.13 10*3/uL Normal 1.00-4.00 [facility] Comment on above: Order Comment: Speci men Type: BLOOD SPECIMEN Ordering Facility: [facility] Address: [address] [place] [address] Performed By: #### 5 7021-8 #### [facility] CLIA [id number] [address] [place] [address] [place] Lymphocytes/100 WBC (Bld) 18.2 % Normal [facility] Comment on above: Order Comment: Speci men Type: BLOOD SPECIMEN Ordering Facility: [facility] Address: [address] [place] [address] Performed By: #### 5 7021-8 #### [facility] CLIA [id number] [address] [place] [address] [place] MCH (RBC) [Entitic mass] 29.9 pg Normal 26.0-34.0 [facility] Comment on above: Order Comment: Speci men Type: BLOOD SPECIMEN Ordering Facility: [facility] Address: [address] [place] [address] Performed By: #### 5 7021-8 #### [facility] CLIA [id number] [address] [place] [address] [place] MCHC (RBC) [Mass/Vol] 34.3 g/dL Normal 30.5-36.0 [facility] Comment on above: Order Comment: Speci men Type: BLOOD SPECIMEN Ordering Facility: [facility] Address: [address] [place] [address] Performed By: #### 5 7021-8 #### [facility] CLIA [id number] [address] [place] [address] [place] MCV (RBC) [Entitic vol] 87.2 fL Normal 80.0-100.0 [facility] Comment on above: Order Comment: Speci men Type: BLOOD SPECIMEN Ordering Facility: [facility] Address: [address] [place] [address] Performed By: #### 5 7021-8 #### [facility] CLIA [id number] [address] [place] [address] [place] Monocytes (Bld) [#/Vol] 0.36 10*3/uL Normal <0.87 [facility] Comment on above: Order Comment: Speci men Type: BLOOD SPECIMEN Ordering Facility: [facility] Address: [address] [place] [address] Performed By: #### 5 7021-8 #### [facility] CLIA [id number] [address] [place] [address] [place] Monocytes/100 WBC (Bld) 5.8 % Normal [facility] Comment on above: Order Comment: Speci men Type: BLOOD SPECIMEN Ordering Facility: [facility] Address: [address] [place] [address] Performed By: #### 5 7021-8 #### [facility] CLIA [id number] [address] [place] [address] [place] Neutrophils (Bld) [#/Vol] 4.18 10*3/uL Normal 1.45-7.50 [facility] Comment on above: Order Comment: Speci men Type: BLOOD SPECIMEN Ordering Facility: [facility] Address: [address] [place] [address] Performed By: #### 5 7021-8 #### [facility] CLIA [id number] [address] [place] [address] [place] Neutrophils/100 WBC (Bld) 67.3 % Normal [facility] Comment on above: Order Comment: Speci men Type: BLOOD SPECIMEN Ordering Facility: [facility] Address: [address] [place] [address] Performed By: #### 5 7021-8 #### [facility] CLIA [id number] [address] [place] [address] [place] Nucleated RBC (Bld) [#/Vol] 10*3/uL Normal <0.01 [facility] Comment on above: Order Comment: Speci men Type: BLOOD SPECIMEN Ordering Facility: [facility] Address: [address] [place] [address] Performed By: #### 5 7021-8 #### [facility] CLIA [id number] [address] [place] [address] [place] Nucleated RBC/100 WBC (Bld) [Ratio] 0.0 /100 WBC Normal [facility] Comment on above: Order Comment: Speci men Type: BLOOD SPECIMEN Ordering Facility: [facility] Address: [address] [place] [address] Performed By: #### 5 7021-8 #### [facility] CLIA [id number] [address] [place] [address] [place] Platelet mean volume (Bld) [Entitic vol] 8.7 fL Low 9.0-12.7 [facility] Comment on above: Order Comment: Speci men Type: BLOOD SPECIMEN Ordering Facility: [facility] Address: [address] [place] [address] Performed By: #### 5 7021-8 #### [facility] CLIA [id number] [address] [place] [address] [place] Platelets (Bld) [#/Vol] 436 10*3/uL High 150-400 [facility] Comment on above: Order Comment: Speci men Type: BLOOD SPECIMEN Ordering Facility: [facility] Address: [address] [place], [place] [id number] Performed By: #### 5 7021-8 #### [facility] CLIA [id number] [address] [place] [address] [place] RBC (Bld) [#/Vol] 3.58 10*6/uL Low 3.90-5.20 [facility] Comment on above: Order Comment: Speci men Type: BLOOD SPECIMEN Ordering Facility: [facility] Address: [address] [place] [address] Performed By: #### 5 7021-8 #### [facility] CLIA [id number] [address] [place] [address] [place] WBC (Bld) [#/Vol] 6.21 10*3/uL Normal 3.70-11.00 [facility] Comment on above: Order Comment: Speci men Type: BLOOD SPECIMEN Ordering Facility: [facility] Address: [address] [place] [address] Performed By: #### 5 7021-8 #### [facility] CLIA [id number] [place] [address] [place] Magnesium SerPl-mCncon 04-04 Magnesium [Mass/Vol] 2.1 mg/dL Normal 1.7-2.3 [facility] Comment on above: Order Comment: Speci men Type: BLOOD SPECIMENOrdering Facility: [facility] Address: [address] [place] [address] Performed By: #### 2 4321-2, 80217-3, 2777-1 ####[facility] [id number] [address] [place] NURSING PROGon 04-04-2022 NURSING PROG HNO ID: [id number] Author: Dipti Crowley RN Service: Nursing Author Type: Registered Nurse Type: Nursing Progress Note Filed: 04/04/2022 7:47 PM Note Text: Nursing Progress Note Patient Name: Mary Leal Patient Location: [place] [address] __ Daily Note:Patient refusing further IVF. This note was completed by: [facility] HNO ID: [id number] Author: Dipti Crowley RN Service: Nursing Author Type: Registered Nurse Type: Nursing Progress Note Filed: 04/04/2022 11:11 AM Note Text: Nursing Progress Note Patient Name: Mary Leal Patient Location: [id number] __ Daily Note: Patient up in chair [...] notified, but post call. 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 Will continue to monitor. Call light in reach. This note was completed by: Dipti Crowley [facility] Phosphate SerPl-ncon 04-04 Phosphate [Mass/Vol] 3.2 mg/dL Normal 2.7-4.8 [facility] Comment on above: Order Comment: Speci men Type: BLOOD SPECIMENOrdering Facility: [facility] Address: [address] [place] [address] Performed By: #### 2 4321-2, 58537-9, 2777-1 ####[facility] [id number] [address] [place] ALLIED HEALTHon 04-03-2022 ALLIED HEALTH HNO ID: [id number] Author: Adriana Daley, MALAIKA Service: ? Author Type: Safety Representative Type: Allied Health Filed: 04/03/2022 5:35 PM [...] Completed: Abdomen/Pelvis PERIPHERAL IV DATA: Inpatient: see [facility] documentation SIGNED BY: MALAIKA Martinez April 03, 2022 5:35 PM Normal [facility] Basic metabolic 2000 panelon 04-03-2022 Anion gap [Moles/Vol] 10 mmol/L Normal 9-18 [facility] Comment on above: Order Comment: Speci men Type: BLOOD SPECIMENOrdering Facility: [facility] Address: [address] [place] [address] Performed By: #### B MP #### [place] [phone] Calcium [Mass/Vol] 8.4 mg/dL Low 8.5-10.2 [facility] Comment on above: Order Comment: Speci men Type: BLOOD SPECIMENOrdering Facility: [facility] Address: [address] [place] [address] Performed By: #### B MP #### [phone] Chloride [Moles/Vol] 103 mmol/L Normal 97-105 [facility] Comment on above: Order Comment: Speci men Type: BLOOD SPECIMENOrdering Facility: [facility] Address: [address] [place] [address] Performed By: #### B MP #### [phone] CO2 [Moles/Vol] 25 mmol/L Normal 22-30 [facility] Comment on above: Order Comment: Speci men Type: BLOOD SPECIMENOrdering Facility: [facility] Address: [address] [place] [address] Performed By: #### B MP #### [place] [phone] Creatinine [Mass/Vol] 0.60 mg/dL Normal 0.58-0.96 [facility] Comment on above: Order Comment: Kaylinamena terry Type: BLOOD SPECIMENOrdering Facility: [facility] Address: [address] [place], [place] [phone] Performed By: #### B MP #### [place] [id number] [place] [address] ESTIMATED GLOMERULAR FILTRATION RATE 110 mL/min/1.73m??? Normal >=60 [facility] Comment on above: Order Comment: Kaylinamena terry Type: BLOOD SPECIMENOrdering Facility: [facility] Address: [address] [place], [place] [id number] Result Comment: Mary mated Glomerular Filtration Rate [...] GFR. Performed By: #### B MP #### [place] [address] Glucose [Mass/Vol] 106 mg/dL High 74-99 [facility] Comment on above: Order Comment: Leanne terry Type: BLOOD SPECIMENOrdering Facility: [facility] Address: [address] [place], [place] [id number] Result Comment: The [place] [employer] (ADA) [...] 1). Performed By: #### B MP #### [place] [phone] Potassium [Moles/Vol] 3.3 mmol/L Low 3.7-5.1 [facility] Comment on above: Order Comment: Speci men Type: BLOOD SPECIMENOrdering Facility: [facility] Address: [address] [place] [address] Performed By: #### B MP #### [place] [phone] Sodium [Moles/Vol] 138 mmol/L Normal 136-144 [facility] Comment on above: Order Comment: Speci men Type: BLOOD SPECIMENOrdering Facility: [facility] Address: [address] [place] [address] Performed By: #### B MP #### [place] [phone] Urea nitrogen [Mass/Vol] 4 mg/dL Low 7-21 [facility] Comment on above: Order Comment: Speci men Type: BLOOD SPECIMENOrdering Facility: [facility] Address: [address] [place] [address] Performed By: #### B MP #### [place] [phone] CBC W Auto Differential pane l (Bld)on 04-03-2022 Basophils (Bld) [#/Vol] 0.03 10*3/uL Normal <0.11 [facility] Comment on above: Order Comment: Speci men Type: BLOOD SPECIMENOrdering Facility: [facility] Address: [address] [place] [address] Performed By: #### B MP #### [phone] Basophils/100 WBC (Bld) 0.4 % Normal [facility] Comment on above: Order Comment: Speci men Type: BLOOD SPECIMENOrdering Facility: [facility] Address: [address] [place] [address] Performed By: #### B MP #### [place] [phone] Differential cell count method Nom (Bld) Auto Normal [facility] Comment on above: Order Comment: Speci men Type: BLOOD SPECIMENOrdering Facility: [facility] Address: [address] [place] [address] Performed By: #### B MP #### [place] [phone] Eosinophils (Bld) [#/Vol] 0.48 10*3/uL High <0.46 [facility] Comment on above: Order Comment: Speci men Type: BLOOD SPECIMENOrdering Facility: [facility] Address: [address] [place] [address] Performed By: #### B MP #### [place] [phone] Eosinophils/100 WBC (Bld) 6.5 % Normal [facility] Comment on above: Order Comment: Speci men Type: BLOOD SPECIMENOrdering Facility: [facility] Address: [address] [place] [address] Performed By: #### B MP #### [place] [address] Erythrocyte distribution width (RBC) [Ratio] 12.5 % Normal 11.5-15.0 [facility] Comment on above: Order Comment: Speci men Type: BLOOD SPECIMENOrdering Facility: [facility] Address: [address] [place] [address] Performed By: #### B MP #### [address] Hematocrit (Bld) [Volume fraction] 29.5 % Low 36.0-46.0 [facility] Comment on above: Order Comment: Speci men Type: BLOOD SPECIMENOrdering Facility: [facility] Address: [address] [place] [address] Performed By: #### B MP #### [place] [phone] Hemoglobin (Bld) [Mass/Vol] 10.2 g/dL Low 11.5-15.5 [facility] Comment on above: Order Comment: Speci men Type: BLOOD SPECIMENOrdering Facility: [facility] Address: [address] [place] [address] Performed By: #### B MP #### [place] [phone] IMMATURE GRAN % 0.5 % Normal [facility] Comment on above: Order Comment: Speci men Type: BLOOD SPECIMENOrdering Facility: [facility] Address: [address] [place] [address] Performed By: #### B MP #### [phone] IMMATURE GRAN ABS 0.04 k/uL Normal <0.10 [facility] Comment on above: Order Comment: Speci men Type: BLOOD SPECIMENOrdering Facility: [facility] Address: [address] [place] [address] Performed By: #### B MP #### [place] [phone] Lymphocytes (Bld) [#/Vol] 1.11 10*3/uL Normal 1.00-4.00 [facility] Comment on above: Order Comment: Speci men Type: BLOOD SPECIMENOrdering Facility: [facility] Address: [address] [place] [address] Performed By: #### B MP #### [id number] Lymphocytes/100 WBC (Bld) 15.0 % Normal [facility] Comment on above: Order Comment: Speci men Type: BLOOD SPECIMENOrdering Facility: [facility] Address: [address] [place] [address] Performed By: #### B MP #### [place] [phone] MCH (RBC) [Entitic mass] 30.1 pg Normal 26.0-34.0 [facility] Comment on above: Order Comment: Speci men Type: BLOOD SPECIMENOrdering Facility: [facility] Address: [address] [place] [address] Performed By: #### B MP #### [place] [phone] MCHC (RBC) [Mass/Vol] 34.6 g/dL Normal 30.5-36.0 [facility] Comment on above: Order Comment: Speci men Type: BLOOD SPECIMENOrdering Facility: [facility] Address: [address] [place] [address] Performed By: #### B MP #### [phone] MCV (RBC) [Entitic vol] 87.0 fL Normal 80.0-100.0 [facility] Comment on above: Order Comment: Speci men Type: BLOOD SPECIMENOrdering Facility: [facility] Address: [address] [place] [address] Performed By: #### B MP #### [id number] Monocytes (Bld) [#/Vol] 0.46 10*3/uL Normal <0.87 [facility] Comment on above: Order Comment: Speci men Type: BLOOD SPECIMENOrdering Facility: [facility] Address: [address] [place] [address] Performed By: #### B MP #### [place] [id number] Monocytes/100 WBC (Bld) 6.2 % Normal [facility] Comment on above: Order Comment: Speci men Type: BLOOD SPECIMENOrdering Facility: [facility] Address: [address] [place] [address] Performed By: #### B MP #### [id number] Neutrophils (Bld) [#/Vol] 5.27 10*3/uL Normal 1.45-7.50 [facility] Comment on above: Order Comment: Speci men Type: BLOOD SPECIMENOrdering Facility: [facility] Address: [address] [place] [address] Performed By: #### B MP #### [place] [phone] Neutrophils/100 WBC (Bld) 71.4 % Normal [facility] Comment on above: Order Comment: Speci men Type: BLOOD SPECIMENOrdering Facility: [facility] Address: [address] [place] [address] Performed By: #### B MP #### [id number] Nucleated RBC (Bld) [#/Vol] 10*3/uL Normal <0.01 [facility] Comment on above: Order Comment: Speci men Type: BLOOD SPECIMENOrdering Facility: [facility] Address: [address] [place] [address] Performed By: #### B MP #### [place] [id number] Nucleated RBC/100 WBC (Bld) [Ratio] 0.0 /100 WBC Normal [facility] Comment on above: Order Comment: Speci men Type: BLOOD SPECIMENOrdering Facility: [facility] Address: [address] [place] [address] Performed By: #### B MP #### [id number] Platelet mean volume (Bld) [Entitic vol] 8.6 fL Low 9.0-12.7 [facility] Comment on above: Order Comment: Speci men Type: BLOOD SPECIMENOrdering Facility: [facility] Address: [address] [place] [address] Performed By: #### B MP #### [id number] Platelets (Bld) [#/Vol] 342 10*3/uL Normal 150-400 [facility] Comment on above: Order Comment: Speci men Type: BLOOD SPECIMENOrdering Facility: [facility] Address: [address] [place], [place] [address] Performed By: #### B MP #### [place] [phone] RBC (Bld) [#/Vol] 3.39 10*6/uL Low 3.90-5.20 [facility] Comment on above: Order Comment: Speci men Type: BLOOD SPECIMENOrdering Facility: [facility] Address: [address] [place] [address] Performed By: #### B MP #### [place] [phone] WBC (Bld) [#/Vol] 7.39 10*3/uL Normal 3.70-11.00 [facility] Comment on above: Order Comment: Speci men Type: BLOOD SPECIMENOrdering Facility: [facility] Address: [address] [place] [address] Performed By: #### B MP #### [place] [phone] CONSULT PROGon 04-03-2022 CONSULT PROG HNO ID: [id number] Author: Sarwat Huddleston PA-C Service: Pain Management Author Type: Physician Customer Advocacy Manager Type: Consult Progress Note Filed: 04/03/2022 8:39 [...] appears comf (more content not included)... Normal [facility] CT ABD/PEL W IVCONon 022 CT ABD/PEL [...] Lower thorax: Visualized lung bases are clear. 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 IMPRESSION: Postsurgical [...] collection is present in the lower pelvis Public Policy Manager: CAPRI Transcribe Date/Time: Apr 03 2022 9:00P Dictated by : SHELBY ESPINOSA MD This examination was interpreted and the report reviewed and electronically signed by: SHELBY ESPINOSA MD on Apr 03 2022 9:12PM EST [id number] [facility] 04-03 Magnesium [Mass/Vol] 1.6 mg/dL Low 1.7-2.3 [facility] Comment on above: Order Comment: Speci men Type: BLOOD SPECIMENOrdering Facility: [facility] Address: [address] [place] [address] Performed By: #### B MP #### [place] [id number] [place] [address] NURSING PROGon 04-03-2022 NURSING PROG HNO ID: [id number] Author: Beto Ford RN Service: ? Author Type: Registered Nurse Type: Nursing Progress Note Filed: 04/03/2022 9:39 PM Note Text: Nursing Progress Note Patient Name: Mary Leal Patient Location: [address] __ Daily Note: 2129: Pt declined to have all oral medications. They just go right through me. I cannot take them. . Made RN aware. This note was completed by: Beto Ford [facility] NURSING PROG HNO ID: [id number] Author: Dipti Crowley RN Service: Nursing Author Type: Registered Nurse Type: Nursing Progress Note Filed: 04/03/2022 2:51 PM Note Text: Nursing Progress Note Patient Name: Mary Leal Patient Location: [address]/ML3[address]-30 __ Daily Note:Patient unable to tolerate powder form of potassium due to nausea. Patient unable to tolerate IV form, it feels like It's paralyzing my arm . Attempted to dilute boluses and lower rates with no success. SR paged with events ([phone]). Awaiting further orders. This note was completed by: Dipti Crowley [facility] NURSING PROG HNO ID: [id number] Author: Dipti Crowley RN Service: Nursing Author [...] with tape applied. 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 BS Hypoactive. No flatus per [...] This note was completed by: Dipti Crowley [facility] NURSING PROG HNO ID: [id number] Author: Chava Remy RN Service: PICC Team [...] 03, 2022 TIME: 8:37 AM PAGER/CONTACT #: [facility] NURSING PROG HNO ID: [id number] Author: Kev Leone RN Service: ? Author Type: Registered Nurse Type: Nursing Progress Note Filed: 04/03/2022 3:50 AM Note Text: Nursing Progress Note Patient Name: Mary Leal Patient Location: [place] [address]/[place] [address] __ Daily Note: 2100: Pt refusing all PO meds at this time, states she's concerned that she's not digesting them properly. Paan currently being controlled with bilateral blocks and PRN IV pain medication. This note was completed by: Kev Leone [facility] Phosphate SerPl-mCncon 04-03 Phosphate [Mass/Vol] 3.3 mg/dL Normal 2.7-4.8 [facility] Comment on above: Order Comment: Speci men Type: BLOOD SPECIMENOrdering Facility: [facility] Address: [address] [place] [address] Performed By: #### B #### [place] [phone] ALLIED HEALTHon 04-02-2022 ALLIED HEALTH HNO ID: [id number] Author: RT Ban(Asiya) Service: Radiology Author Type: [...] RT Ban(R) April 02, 2022 9:12 AM [facility] CONSULT PROGon 04-02-2022 CONSULT PROG HNO ID: [id number] Author: Sarwat Huddleston PA-C Service: Pain Management Author Type: Physician Customer Advocacy Manager Type: Consult Progress Note Filed: 04/02/2022 9:00 [...] 29.3 5 (more content not included)... Normal [facility] NURSING PROGon 04-02-2022 NURSING PROG HNO ID: [id number] Author: Dipti Crowley RN Service: Nursing Author Type: Registered Nurse Type: Nursing Progress Note Filed: 04/02/2022 1:23 PM Note Text: Nursing Progress Note Patient Name: Mary Leal Patient Location: [facility] __ Daily Note: Patient AANDOx3. VSS. RA POx. D51/2NS at 75 ml/hr. B/L Tap Block dressings CDI. Old ostomy with ABD and tape, CDI. 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 NPO status. Medicated with IV [...] This note was completed by: Dipti Crowley [facility] XR ABDOMEN 1V SUPINEon 04-02 XR [...] may be of help for further evaluation. Public Policy Manager: PSCB Transcribe Date/Time: Apr 02 2022 9:16A Dictated by : JOAQUIN BRYANT MD This examination was interpreted and the report reviewed and electronically signed by: JOAQUIN BRYANT MD on Apr 02 2022 9:19AM EST [id number] [facility] Basic metabolic 2000 panelon 04-01-2022 Anion gap [Moles/Vol] 9 mmol/L Normal 9-18 [facility] Comment on above: Order Comment: Speci men Type: BLOOD SPECIMENOrdering Facility: [facility] Address: [address] [place] [address] Performed By: #### B MP #### [place] [phone] Calcium [Mass/Vol] 7.9 mg/dL Low 8.5-10.2 [facility] Comment on above: Order Comment: Speci men Type: BLOOD SPECIMENOrdering Facility: [facility] Address: [address] [place] [address] Performed By: #### B MP #### [place] [phone] Chloride [Moles/Vol] 106 mmol/L High 97-105 [facility] Comment on above: Order Comment: Speci men Type: BLOOD SPECIMENOrdering Facility: [facility] Address: [address] [place] [address] Performed By: #### B MP #### [phone] CO2 [Moles/Vol] 26 mmol/L Normal 22-30 [facility] Comment on above: Order Comment: Speci men Type: BLOOD SPECIMENOrdering Facility: [facility] Address: [address] [place] [address] Performed By: #### B MP #### [place] [phone] Creatinine [Mass/Vol] 0.68 mg/dL Normal 0.58-0.96 [facility] Comment on above: Order Comment: Speci men Type: BLOOD SPECIMENOrdering Facility: [facility] Address: [address] [place] [address] Performed By: #### B MP #### [id number] ESTIMATED GLOMERULAR FILTRATION RATE 107 mL/min/1.73m??? Normal >=60 [facility] Comment on above: Order Comment: Speci men Type: BLOOD SPECIMENOrdering Facility: [facility] Address: [address] Result Comment: Mary mated Glomerular Filtration [...] GFR. Performed By: #### B MP #### [place] [address] Glucose [Mass/Vol] 99 mg/dL Normal 74-99 [facility] Comment on above: Order Comment: Leanne men Type: BLOOD SPECIMENOrdering Facility: [facility] Address: [address] [place] [address] Result Comment: The [employer] (ADA) [...] 1). Performed By: #### B MP #### [place] [address] Potassium [Moles/Vol] 3.7 mmol/L Normal 3.7-5.1 [facility] Comment on above: Order Comment: Leanne men Type: BLOOD SPECIMENOrdering Facility: [facility] Address: [address] Performed By: #### B MP #### [place] [address] Sodium [Moles/Vol] 141 mmol/L Normal 136-144 [facility] Comment on above: Order Comment: Speci men Type: BLOOD SPECIMENOrdering Facility: [facility] Address: [address] [place] [address] Performed By: #### B MP #### [place] [phone] Urea nitrogen [Mass/Vol] 4 mg/dL Low 7-21 [facility] Comment on above: Order Comment: Speci men Type: BLOOD SPECIMENOrdering Facility: [facility] Address: [address] [place] [address] Performed By: #### B MP #### [place] [address] CBC panel Auto (Bld)on 04-01 Erythrocyte distribution width (RBC) [Ratio] 12.4 % Normal 11.5-15.0 [facility] Comment on above: Order Comment: Speci men Type: BLOOD SPECIMEN [facility]ing [facility]: [facility] Address: [address] [place] [address] Performed By: #### 5 8410-2 #### [facility] CLIA [id number] [address] [place] [address] [facility] [place] Hematocrit (Bld) [Volume fraction] 29.3 % Low 36.0-46.0 [facility] Comment on above: Order Comment: Speci men Type: BLOOD SPECIMEN [facility]ing Facility: [facility] Address: [address] [place] [address] Performed By: #### 5 8410-2 #### [facility] CLIA [id number] [address] [place] [address] [place] Hemoglobin (Bld) [Mass/Vol] 9.6 g/dL Low 11.5-15.5 [facility] Comment on above: Order Comment: Speci men Type: BLOOD SPECIMEN [facility]ing [facility]: [facility] Address: [address] [place] [address] Performed By: #### 5 8410-2 #### [facility] CLIA [id number] [address] [place] [address] [place] MCH (RBC) [Entitic mass] 29.4 pg Normal 26.0-34.0 [facility] Comment on above: Order Comment: Speci men Type: BLOOD SPECIMEN [facility]ing [facility]: [facility] Address: [address] [place] [address] Performed By: #### 5 8410-2 #### [facility] CLIA [id number] [address] [place] [address] [place] MCHC (RBC) [Mass/Vol] 32.8 g/dL Normal 30.5-36.0 [facility] Comment on above: Order Comment: Speci men Type: BLOOD SPECIMEN [facility]ing [facility]: [facility] Address: [address] [place] [address] Performed By: #### 5 8410-2 #### [facility] CLIA [id number] [address] [place] [address] [place] MCV (RBC) [Entitic vol] 89.9 fL Normal 80.0-100.0 [facility] Comment on above: Order Comment: Speci men Type: BLOOD SPECIMEN [facility]: [facility] Address: [address] [place] [address] Performed By: #### 5 8410-2 #### [facility] CLIA [id number] [address] [place] [address] [place] Nucleated RBC (Bld) [#/Vol] 10*3/uL Normal <0.01 [facility] Comment on above: Order Comment: Speci men Type: BLOOD SPECIMEN [facility]: [facility] Address: [address] [place] [address] Performed By: #### 5 8410-2 #### [facility] CLIA [id number] [address] [place] [address] [place] Platelet mean volume (Bld) [Entitic vol] 8.9 fL Low 9.0-12.7 [facility] Comment on above: Order Comment: Speci men Type: BLOOD SPECIMEN [facility]ing [facility]: [facility] Address: [address] [place] [address] Performed By: #### 5 8410-2 #### [facility] CLIA [id number] [address] [place] [address] [place] Platelets (Bld) [#/Vol] 282 10*3/uL Normal 150-400 [facility] Comment on above: Order Comment: Speci men Type: BLOOD SPECIMEN [facility]: [facility] Address: [address] [place] [address] Performed By: #### 5 8410-2 #### [facility] CLIA [id number] [address] [place] [address] [place] RBC (Bld) [#/Vol] 3.26 10*6/uL Low 3.90-5.20 [facility] Comment on above: Order Comment: Speci men Type: BLOOD SPECIMEN [facility] Address: [address] [place] [address] Performed By: #### 5 8410-2 #### [facility] CLIA [id number] [address] [place] [address] [place] [facility] WBC (Bld) [#/Vol] 7.39 10*3/uL Normal 3.70-11.00 [facility] Comment on above: Order Comment: Speci men Type: BLOOD SPECIMEN [facility] Address: [address] [place] [address] Performed By: #### 5 8410-2 #### [facility] CLIA [id number] [address] [place] [address] [place] CONSULT PROGon 04-01-2022 CONSULT PROG HNO ID: [id number] Author: Joslyn Jain APRN.AIR TUCKER Service: Pain Management Author Type: Nurse Practitioner [...] 0.67 Sod (more content not included)... Normal [facility] Magnesium SerPl-mCncon 04-01 Magnesium [Mass/Vol] 1.7 mg/dL Normal 1.7-2.3 [facility] Comment on above: Order Comment: Speci men Type: BLOOD SPECIMENOrdering Facility: [facility] Address: [address] [place] [address] Performed By: #### B MP #### [place] [address] NURSING PROGon 04-01-2022 NURSING PROG HNO ID: [id number] Author: Tez Gu RN Service: ? Author [...] This note was completed by: Tez Gu [facility] NURSING PROG HNO ID: [id number] Author: Tez Gu RN Service: ? Author Type: Registered Nurse Type: Nursing Progress Note Filed: 04/01/2022 1:52 AM Note Text: Nursing Progress Note Patient Name: Mary Leal Patient Location: / __ Daily Note:03/31/222030 Pt is alert and oriented x3. Surgical sites intact. Nerve blocks x2 intact. This note was completed by: Tez Gu [facility] Phosphate SerPl-mCncon 04-01 Phosphate [Mass/Vol] 2.8 mg/dL Normal 2.7-4.8 [facility] Comment on above: Order Comment: Speci men Type: BLOOD SPECIMENOrdering Facility: [facility] Address: [address] [place] [address] Performed By: #### B MP #### [place] [address] Basic metabolic 2000 panelon 03-31-2022 Anion gap [Moles/Vol] 10 mmol/L Normal 9-18 [facility] Comment on above: Order Comment: Speci men Type: BLOOD SPECIMEN [facility] Address: [address] [place] [address] Performed By: #### 5 8410-2 #### [facility] CLIA [id number] [address] [place] [address] [place] Calcium [Mass/Vol] 8.4 mg/dL Low 8.5-10.2 [facility] Comment on above: Order Comment: Speci men Type: BLOOD SPECIMEN [facility] Address: [address] [place] [address] Performed By: #### 5 8410-2 #### [facility] CLIA [id number] [address] [place] [address] [place] Chloride [Moles/Vol] 107 mmol/L High 97-105 [facility] Comment on above: Order Comment: Speci men Type: BLOOD SPECIMEN [facility]ing [facility]: [facility] Address: [address] [place] [address] Performed By: #### 5 8410-2 #### [facility] CLIA [id number] [address] [place] [address] [place] CO2 [Moles/Vol] 23 mmol/L Normal 22-30 [facility] Comment on above: Order Comment: Speci men Type: BLOOD SPECIMEN [facility]ing [facility]: [facility] Address: [address] [place] [address] Performed By: #### 5 8410-2 #### [facility] CLIA [id number] [address] [place] [address] [place] Creatinine [Mass/Vol] 0.67 mg/dL Normal 0.58-0.96 [facility] Comment on above: Order Comment: Speci men Type: BLOOD SPECIMEN [facility]ing [facility]: [facility] Address: [address] [place] [address] Performed By: #### 5 8410-2 #### [facility] CLIA [id number] [address] [place] [address] [place] ESTIMATED GLOMERULAR FILTRATION RATE 107 mL/min/1.73m??? Normal >=60 [facility] Comment on above: Order Comment: Speci men Type: BLOOD SPECIMEN Ordering Facility: [facility] Address: [address] [place] [address] Result Comment: Mary mated Glomerular Filtration Rate [...] #### 5 8410-2 #### [facility] CLIA [id number] [address] [place] [address] [place] Glucose [Mass/Vol] 84 mg/dL Normal 74-99 [facility] Comment on above: Order Comment: Leanne terry Type: BLOOD SPECIMEN Ordering Facility: [facility] Address: [address] [place] [address] Result Comment: The [place] [employer] (ADA) [...] 1). Performed By: #### 5 8410-2 #### [facility] CLIA [id number] [address] [place] [address] [place] Potassium [Moles/Vol] 3.8 mmol/L Normal 3.7-5.1 [facility] Comment on above: Order Comment: Leanne terry Type: BLOOD SPECIMEN [facility]ing Facility: [facility] Address: [address] [place] [address] Performed By: #### 5 8410-2 #### [facility] CLIA [id number] [address] [place] [address] [place] Sodium [Moles/Vol] 140 mmol/L Normal 136-144 [facility] Comment on above: Order Comment: Leanne terry Type: BLOOD SPECIMEN [facility]ing Facility: [facility] Address: [address] [place] [address] Performed By: #### 5 8410-2 #### [facility] CLIA [id number] [address] [place] [address] [place] Urea nitrogen [Mass/Vol] 11 mg/dL Normal 7-21 [facility] Comment on above: Order Comment: Speci men Type: BLOOD SPECIMEN [facility]ing Facility: [facility] Address: [address] [place] [address] Performed By: #### 5 8410-2 #### [facility] CLIA [id number] [address] [place] [address] [place] CBC W Auto Differential pane l (Bld)on 03-31-2022 Basophils (Bld) [#/Vol] 0.03 10*3/uL Normal <0.11 [facility] Comment on above: Order Comment: Speci men Type: BLOOD SPECIMEN [facility]ing Facility: [facility] Address: [address] [place] [address] Performed By: #### 5 7021-8 #### [facility] CLIA [id number] [address] [place] [address] [place] Basophils/100 WBC (Bld) 0.4 % Normal [facility] Comment on above: Order Comment: Speci men Type: BLOOD SPECIMEN Ordering Facility: [facility] Address: [address] [place] [address] Performed By: #### 5 7021-8 #### [facility] CLIA [id number] [address] [place] [address] [place] Differential cell count method Nom (Bld) Auto Normal [facility] Comment on above: Order Comment: Speci men Type: BLOOD SPECIMEN [facility]ing Facility: [facility] Address: [address] [place] [address] Performed By: #### 5 7021-8 #### [facility] CLIA [id number] [address] [place] [address] [place] Eosinophils (Bld) [#/Vol] 0.38 10*3/uL Normal <0.46 [facility] Comment on above: Order Comment: Speci men Type: BLOOD SPECIMEN Ordering Facility: [facility] Address: [address] [place] [address] Performed By: #### 5 7021-8 #### [facility] CLIA [id number] [address] [place] [address] [place] Eosinophils/100 WBC (Bld) 4.4 % Normal [facility] Comment on above: Order Comment: Speci men Type: BLOOD SPECIMEN Ordering Facility: [facility] Address: [address] [place] [address] Performed By: #### 5 7021-8 #### [facility] CLIA [id number] [address] [place] [address] [place] Erythrocyte distribution width (RBC) [Ratio] 12.6 % Normal 11.5-15.0 [facility] Comment on above: Order Comment: Speci men Type: BLOOD SPECIMEN Ordering Facility: [facility] Address: [address] [place] [address] Performed By: #### 5 7021-8 #### [facility] CLIA [id number] [address] [place] [address] [place] Hematocrit (Bld) [Volume fraction] 30.0 % Low 36.0-46.0 [facility] Comment on above: Order Comment: Speci men Type: BLOOD SPECIMEN Ordering Facility: [facility] Address: [address] [place] [address] Performed By: #### 5 7021-8 #### [facility] CLIA [id number] [address] [place] [address] [place] Hemoglobin (Bld) [Mass/Vol] 9.9 g/dL Low 11.5-15.5 [facility] Comment on above: Order Comment: Speci men Type: BLOOD SPECIMEN Ordering Facility: [facility] Address: [address] [place] [address] Performed By: #### 5 7021-8 #### [facility] CLIA [id number] [address] [place] [address] [place] IMMATURE GRAN % 0.4 % Normal [facility] Comment on above: Order Comment: Speci men Type: BLOOD SPECIMEN Ordering Facility: [facility] Address: [address] [place] [address] Performed By: #### 5 7021-8 #### [facility] CLIA [id number] [address] [place] [address] [place] IMMATURE GRAN ABS 0.03 k/uL Normal <0.10 [facility] Comment on above: Order Comment: Speci men Type: BLOOD SPECIMEN Ordering Facility: [facility] Address: [address] [place] [address] Performed By: #### 5 7021-8 #### [facility] CLIA [id number] [address] [place] [address] [place] Lymphocytes (Bld) [#/Vol] 1.24 10*3/uL Normal 1.00-4.00 [facility] Comment on above: Order Comment: Speci men Type: BLOOD SPECIMEN Ordering Facility: [facility] Address: [address] [place] [address] Performed By: #### 5 7021-8 #### [facility] CLIA [id number] [address] [place] [address] Lymphocytes/100 WBC (Bld) 14.5 % Normal [facility] Comment on above: Order Comment: Speci men Type: BLOOD SPECIMEN Ordering Facility: [facility] Address: [address] [place] [address] Performed By: #### 5 7021-8 #### [facility] CLIA [id number] [address] [place] [address] [place] MCH (RBC) [Entitic mass] 29.6 pg Normal 26.0-34.0 [facility] Comment on above: Order Comment: Speci men Type: BLOOD SPECIMEN Ordering Facility: [facility] Address: [address] [place] [address] Performed By: #### 5 7021-8 #### [facility] CLIA [id number] [address] [place] [address] [place] MCHC (RBC) [Mass/Vol] 33.0 g/dL Normal 30.5-36.0 [facility] Comment on above: Order Comment: Speci men Type: BLOOD SPECIMEN Ordering Facility: [facility] Address: [address] [place] [address] Performed By: #### 5 7021-8 #### [facility] CLIA [id number] [address] [place] [address] [place] MCV (RBC) [Entitic vol] 89.8 fL Normal 80.0-100.0 [facility] Comment on above: Order Comment: Speci men Type: BLOOD SPECIMEN Ordering Facility: [facility] Address: [address] [place] [address] Performed By: #### 5 7021-8 #### [facility] CLIA [id number] [address] [place] [address] [place] Monocytes (Bld) [#/Vol] 0.48 10*3/uL Normal <0.87 [facility] Comment on above: Order Comment: Speci men Type: BLOOD SPECIMEN Ordering Facility: [facility] Address: [address] [place] [address] Performed By: #### 5 7021-8 #### [facility] CLIA [id number] [address] [place] [address] [place] Monocytes/100 WBC (Bld) 5.6 % Normal [facility] Comment on above: Order Comment: Speci men Type: BLOOD SPECIMEN Ordering Facility: [facility] Address: [address] [place] [address] Performed By: #### 5 7021-8 #### [facility] CLIA [id number] [address] [place] [address] [place] Neutrophils (Bld) [#/Vol] 6.41 10*3/uL Normal 1.45-7.50 [facility] Comment on above: Order Comment: Speci men Type: BLOOD SPECIMEN Ordering Facility: [facility] Address: [address] [place] [address] Performed By: #### 5 7021-8 #### [facility] CLIA [id number] [address] [place] [address] [place] Neutrophils/100 WBC (Bld) 74.7 % Normal [facility] Comment on above: Order Comment: Speci men Type: BLOOD SPECIMEN Ordering Facility: [facility] Address: [address] [place] [address] Performed By: #### 5 7021-8 #### [facility] CLIA [id number] [address] [place] [address] [place] Nucleated RBC (Bld) [#/Vol] 10*3/uL Normal <0.01 [facility] Comment on above: Order Comment: Speci men Type: BLOOD SPECIMEN Ordering Facility: [facility] Address: [address] [place] [address] Performed By: #### 5 7021-8 #### [facility] CLIA [id number] [address] [place] [address] [place] Nucleated RBC/100 WBC (Bld) [Ratio] 0.0 /100 WBC Normal [facility] Comment on above: Order Comment: Speci men Type: BLOOD SPECIMEN Ordering Facility: [facility] Address: [address] [place] [address] Performed By: #### 5 7021-8 #### [facility] CLIA [id number] [address] [place] [address] [place] Platelet mean volume (Bld) [Entitic vol] 9.0 fL Normal 9.0-12.7 [facility] Comment on above: Order Comment: Speci men Type: BLOOD SPECIMEN Ordering Facility: [facility] Address: [address] [place] [address] Performed By: #### 5 7021-8 #### [facility] CLIA [id number] [address] [place] [address] [place] Platelets (Bld) [#/Vol] 246 10*3/uL Normal 150-400 [facility] Comment on above: Order Comment: Speci men Type: BLOOD SPECIMEN Ordering Facility: [facility] Address: [address] [place] [address] Performed By: #### 5 7021-8 #### [facility] CLIA [id number] [address] [place] [address] [place] RBC (Bld) [#/Vol] 3.34 10*6/uL Low 3.90-5.20 [facility] Comment on above: Order Comment: Speci men Type: BLOOD SPECIMEN Ordering Facility: [facility] Address: [address] [place], [place] [address] Performed By: #### 5 7021-8 #### [facility] CLIA [id number] [address] WBC (Bld) [#/Vol] 8.57 10*3/uL Normal 3.70-11.00 [facility] Comment on above: Order Comment: Speci men Type: BLOOD SPECIMEN Ordering Facility: [facility] Address: [address] [place], [place] [address] Performed By: #### 5 7021-8 #### [facility] CLIA [id number] [address] CONSULT PROGon 03-31-2022 CONSULT PROG HNO ID: [id number] Author: Joslyn Jain APRN.AIR TUCKER Service: Pain Management Author Type: Nurse Practitioner [...] AND U (more content not included)... Normal [facility] Magnesium SerPl-mCncon 03-31 Magnesium [Mass/Vol] 1.6 mg/dL Low 1.7-2.3 [facility] Comment on above: Order Comment: Speci men Type: BLOOD SPECIMEN Ordering Facility: [facility] Address: [address] [place] [address] Performed By: #### 5 8410-2 #### [facility] CLIA [id number] [address] NURSING PROGon 03-31-2022 NURSING PROG HNO ID: [id number] Author: Daisy Amaya RN Service: Nursing Author Type: Registered Nurse Type: Nursing Progress Note Filed: 03/31/2022 4:56 PM Note Text: Nursing Progress Note Patient Name: Mary Leal Patient Location: [address]/JV9W-40 __ Daily Note: 0931- Pt A+Ox3. Up with standby assist. Ambulated pod multiple times. Laps intact. Old ostomy site WNL. Pt having liquid brown BMs. Voiding adq. No nausea, cp, or sob. Taps infusing per MAR. Pain controlled with PRN oxy. No further needs at this time. This note was completed by: Daisy Amaya [facility] NURSING PROG HNO ID: [id number] Author: Mariluz Carnes RN Service: Nursing Author Type: Registered Nurse Type: Nursing Progress Note Filed: 03/30/2022 11:47 PM Note Text: Nursing Progress Note Patient Name: Mary Leal Patient Location: [address]/LF2P-11 __ Daily Note: Pt's BP 90/52. Patient asymptomatic. Surgery made aware. Order in for Bolus LR 500CC's. This note was completed by: Mariluz Carnes Normal [facility] Phosphate SerPl-mCncon 03-31 Phosphate [Mass/Vol] 2.7 mg/dL Normal 2.7-4.8 [facility] Comment on above: Order Comment: Speci men Type: BLOOD SPECIMEN Ordering Facility: [facility] Address: [address] [place] [address] Performed By: #### 5 8410-2 #### [facility] CLIA [id number] [address] [place] [address] [place] Basic metabolic 2000 panelon 03-30-2022 Anion gap [Moles/Vol] 10 mmol/L Normal 9-18 [facility] Comment on above: Order Comment: Speci men Type: BLOOD SPECIMEN Ordering Facility: [facility] Address: [address] [place] [address] Performed By: #### 1 9123-9, 2777-1, 95544-0 #### [facility] CLIA [id number] [address] [place] [address] [place] Calcium [Mass/Vol] 8.5 mg/dL Normal 8.5-10.2 [facility] Comment on above: Order Comment: Speci men Type: BLOOD SPECIMEN Ordering Facility: [facility] Address: [address] [address] Performed By: #### 1 9123-9, 2777-1, 86732-1 #### [facility] CLIA [id number] [address] [place] [address] [place] Chloride [Moles/Vol] 103 mmol/L Normal 97-105 [facility] Comment on above: Order Comment: Speci men Type: BLOOD SPECIMEN Ordering Facility: [facility] Address: [address] [place] [address] Performed By: #### 1 9123-9, 2777-1, 42662-7 #### [facility] CLIA [id number] [address] [place] [address] [place] CO2 [Moles/Vol] 24 mmol/L Normal 22-30 [facility] Comment on above: Order Comment: Speci men Type: BLOOD SPECIMEN Ordering Facility: [facility] Address: [address] [place] [address] Performed By: #### 1 9123-9, 2777-, 89473-0 #### [facility] CLIA [id number] [place] [address] [place] Creatinine [Mass/Vol] 0.69 mg/dL Normal 0.58-0.96 [facility] Comment on above: Order Comment: Speci men Type: BLOOD SPECIMEN Ordering Facility: [facility] Address: [address] [place] [address] Performed By: #### 1 9123-9, 2777, 06538-8 #### [facility] CLIA [id number] [address] [place] [address] [place] ESTIMATED GLOMERULAR FILTRATION RATE 107 mL/min/1.73m??? Normal >=60 [facility] Comment on above: Order Comment: Speci men Type: BLOOD SPECIMEN Ordering Facility: [facility] Address: [address] [place] [address] Result Comment: Mary mated Glomerular Filtration Rate [...] GFR. Performed By: #### 1 9123-9, 2777-1, 19189-4 #### [facility] CLIA [id number] [address] [id number] [place] Glucose [Mass/Vol] 117 mg/dL High 74-99 [facility] Comment on above: Order Comment: Leanne terry Type: BLOOD SPECIMEN Ordering Facility: [facility] Address: [address] [place] [address] Result Comment: The [place] [employer] (ADA) [...] 1). Performed By: #### 1 9123-9, 2777-, 89847-9 #### [facility] CLIA [id number] [address] [place] [address] [place] Potassium [Moles/Vol] 3.9 mmol/L Normal 3.7-5.1 [facility] Comment on above: Order Comment: Leanne terry Type: BLOOD SPECIMEN Ordering Facility: [facility] Address: [address] [place], [place] [address] Performed By: #### 1 9123-9, 2777-, 98171-6 #### [facility] CLIA [id number] [address] [place] [address] [place] Sodium [Moles/Vol] 137 mmol/L Normal 136-144 [facility] Comment on above: Order Comment: Leanne terry Type: BLOOD SPECIMEN Ordering Facility: [facility] Address: [address] [place] [address] Performed By: #### 1 9123-9, 2777-, 09815-9 #### [facility] CLIA [id number] [address] [place] [address] [place] Urea nitrogen [Mass/Vol] 13 mg/dL Normal 7-21 [facility] Comment on above: Order Comment: Speci men Type: BLOOD SPECIMEN Ordering Facility: [facility] Address: [address] [place] [address] Performed By: #### 1 9123-9, 2777-1, 65907-9 #### [facility] CLIA [id number] [address] [place] [address] [place] CBC panel Auto (Bld)on 03-30 Erythrocyte distribution width (RBC) [Ratio] 12.8 % Normal 11.5-15.0 [facility] Comment on above: Order Comment: Speci men Type: BLOOD SPECIMEN Ordering Facility: [facility] Address: [address] [place] [address] Performed By: #### 5 8410-2 #### [facility] CLIA [id number] [address] [place] [address] [place] Hematocrit (Bld) [Volume fraction] 35.0 % Low 36.0-46.0 [facility] Comment on above: Order Comment: Speci men Type: BLOOD SPECIMEN Ordering Facility: [facility] Address: [address] [place] [address] Performed By: #### 5 8410-2 #### [facility] CLIA [id number] [address] [place] [address] [place] Hemoglobin (Bld) [Mass/Vol] 11.8 g/dL Normal 11.5-15.5 [facility] Comment on above: Order Comment: Speci men Type: BLOOD SPECIMEN Ordering Facility: [facility] Address: [address] [place] [address] Performed By: #### 5 8410-2 #### [facility] CLIA [id number] [address] [place] [address] [place] MCH (RBC) [Entitic mass] 30.6 pg Normal 26.0-34.0 [facility] Comment on above: Order Comment: Speci men Type: BLOOD SPECIMEN Ordering Facility: [facility] Address: [address] [place] [address] Performed By: #### 5 8410-2 #### [facility] CLIA [id number] [address] [place] [address] [place] MCHC (RBC) [Mass/Vol] 33.7 g/dL Normal 30.5-36.0 [facility] Comment on above: Order Comment: Speci men Type: BLOOD SPECIMEN Ordering Facility: [facility] Address: [address] [place] [address] Performed By: #### 5 8410-2 #### [facility] CLIA [id number] [address] [place] [address] [place] MCV (RBC) [Entitic vol] 90.7 fL Normal 80.0-100.0 [facility] Comment on above: Order Comment: Speci men Type: BLOOD SPECIMEN Ordering Facility: [facility] Address: [address] [place] [address] Performed By: #### 5 8410-2 #### [facility] CLIA [id number] [address] [place] [address] [place] Nucleated RBC (Bld) [#/Vol] 10*3/uL Normal <0.01 [facility] Comment on above: Order Comment: Speci men Type: BLOOD SPECIMEN Ordering Facility: [facility] Address: [address] [place] [address] Performed By: #### 5 8410-2 #### [facility] CLIA [id number] [address] [place] [address] [place] Platelet mean volume (Bld) [Entitic vol] 8.9 fL Low 9.0-12.7 [facility] Comment on above: Order Comment: Speci men Type: BLOOD SPECIMEN Ordering Facility: [facility] Address: [address] [place] [address] Performed By: #### 5 8410-2 #### [facility] CLIA [id number] [address] [place] [address] [place] Platelets (Bld) [#/Vol] 293 10*3/uL Normal 150-400 [facility] Comment on above: Order Comment: Speci men Type: BLOOD SPECIMEN Ordering Facility: [facility] Address: [address] [place] [address] Performed By: #### 5 8410-2 #### [facility] CLIA [id number] [address] [place] [address] [place] RBC (Bld) [#/Vol] 3.86 10*6/uL Low 3.90-5.20 [facility] Comment on above: Order Comment: Speci men Type: BLOOD SPECIMEN Ordering Facility: [facility] Address: [address] [place], [place] [address] Performed By: #### 5 8410-2 #### [facility] CLIA [id number] [address] [place] [address] [place] WBC (Bld) [#/Vol] 11.25 10*3/uL High 3.70-11.00 [facility] Comment on above: Order Comment: Speci men Type: BLOOD SPECIMEN Ordering Facility: [facility] Address: [address] [place] [address] Performed By: #### 5 8410-2 #### [facility] CLIA [id number] [address] [place] CONSULT PROGon 03-30-2022 CONSULT PROG HNO ID: [id number] Author: Joslyn Jain APRN.AIR TUCKER Service: Pain Management Author Type: Nurse Practitioner [...] eGFR >= (more content not included)... Normal [facility] Magnesium [facility] Magnesium [Mass/Vol] 1.6 mg/dL Low 1.7-2.3 [facility] Comment on above: Order Comment: Speci men Type: BLOOD SPECIMEN Ordering Facility: [facility] Address: [address] [place] [address] Performed By: #### 1 9123-9, 2777-1, 96894-1 #### [facility] CLIA [id number] [address] [place] [address] OF [facility] Phosphate [facility]-ncon 03-30 Phosphate [Mass/Vol] 2.9 mg/dL Normal 2.7-4.8 [facility] Comment on above: Order Comment: Speci men Type: BLOOD SPECIMEN Ordering Facility: [facility] Address: [address] [place] [address] Performed By: #### 1 9123-9, 2777-1, 53774-8 #### [facility] CLIA [id number] [address] [place] [address] [place] ANES POSTPROC EVALon 022 ANES POSTPROC EVAL HNO ID: [id number] Author: Nathanael Craig DO Service: Anesthesiology Author [...] March 29, 2022 TIME: 8:29 AM CSN: [id number] Normal [facility] Basic metabolic 2000 panelon 03-29-2022 Anion gap [Moles/Vol] 9 mmol/L Normal 9-18 [facility] Comment on above: Order Comment: Speci men Type: BLOOD SPECIMEN Ordering Facility: [facility] Address: [address] [place] [address] Performed By: #### 5 8410-2 #### [facility] CLIA [id number] [address] [place] [address] [place] Calcium [Mass/Vol] 7.9 mg/dL Low 8.5-10.2 [facility] Comment on above: Order Comment: Speci men Type: BLOOD SPECIMEN Ordering Facility: [facility] Address: [address] [place] [address] Performed By: #### 5 8410-2 #### [facility] CLIA [id number] [place] [address] [place] Chloride [Moles/Vol] 105 mmol/L Normal 97-105 [facility] Comment on above: Order Comment: Speci men Type: BLOOD SPECIMEN Ordering Facility: [facility] Address: [address] [place] [address] Performed By: #### 5 8410-2 #### [facility] CLIA [id number] [place] [address] [place] CO2 [Moles/Vol] 24 mmol/L Normal 22-30 [facility] Comment on above: Order Comment: Speci men Type: BLOOD SPECIMEN Ordering Facility: [facility] Address: [address] [place] [address] Performed By: #### 5 8410-2 #### [facility] CLIA [id number] [address] [place] [address] [place] Creatinine [Mass/Vol] 0.70 mg/dL Normal 0.58-0.96 [facility] Comment on above: Order Comment: Speci men Type: BLOOD SPECIMEN Ordering Facility: [facility] Address: [address] [place] [address] Performed By: #### 5 8410-2 #### [facility] CLIA [id number] [address] [place] [address] [place] ESTIMATED GLOMERULAR FILTRATION RATE 106 mL/min/1.73m??? Normal >=60 [facility] Comment on above: Order Comment: Speci men Type: BLOOD SPECIMEN Ordering Facility: [facility] Address: [address] [place] [address] Result Comment: Mary mated Glomerular Filtration Rate [...] GFR. Performed By: #### 5 8410-2 #### [facility] CLIA [id number] [address] [place] [address] [place] Glucose [Mass/Vol] 92 mg/dL Normal 74-99 [facility] Comment on above: Order Comment: Leanne terry Type: BLOOD SPECIMEN Ordering Facility: [facility] Address: [address] [place] [address] Result Comment: The [place] [employer] (ADA) [...] 1). Performed By: #### 5 8410-2 #### [facility] CLIA [id number] [address] [place] [address] [place] Potassium [Moles/Vol] 4.1 mmol/L Normal 3.7-5.1 [facility] Comment on above: Order Comment: Leanne terry Type: BLOOD SPECIMEN Ordering Facility: [facility] Address: [address] [place] [address] Performed By: #### 5 8410-2 #### [facility] CLIA [id number] [address] [place] [address] [place] Sodium [Moles/Vol] 138 mmol/L Normal 136-144 [facility] Comment on above: Order Comment: Leanne terry Type: BLOOD SPECIMEN Ordering Facility: [facility] Address: [address] [place] [address] Performed By: #### 5 8410-2 #### [facility] CLIA [id number] [address] [place] [address] [place] Urea nitrogen [Mass/Vol] 12 mg/dL Normal 7-21 [facility] Comment on above: Order Comment: Leanne terry Type: BLOOD SPECIMEN Ordering Facility: [facility] Address: [address] [address] Performed By: #### 5 8410-2 #### [facility] CLIA [id number] [address] [place] [address] [place] CBC W Auto Differential pane l (Bld)on 03-29-2022 Basophils (Bld) [#/Vol] 0.04 10*3/uL Normal <0.11 [facility] Comment on above: Order Comment: Speci men Type: BLOOD SPECIMEN Ordering Facility: [facility] Address: [address] [place] [address] Performed By: #### 5 7021-8 #### [facility] CLIA [id number] [address] [place] [address] [place] Basophils/100 WBC (Bld) 0.6 % Normal [facility] Comment on above: Order Comment: Speci men Type: BLOOD SPECIMEN Ordering Facility: [facility] Address: [address] [place] [address] Performed By: #### 5 7021-8 #### [facility] CLIA [id number] [address] [place] [address] [place] Differential cell count method Nom (Bld) Auto Normal [facility] Comment on above: Order Comment: Speci men Type: BLOOD SPECIMEN Ordering Facility: [facility] Address: [address] [place] [address] Performed By: #### 5 7021-8 #### [facility] CLIA [id number] [address] [place] [address] [place] Eosinophils (Bld) [#/Vol] 0.16 10*3/uL Normal <0.46 [facility] Comment on above: Order Comment: Speci men Type: BLOOD SPECIMEN Ordering Facility: [facility] Address: [address] [place] [address] Performed By: #### 5 7021-8 #### [facility] CLIA [id number] [address] [place] [address] [place] Eosinophils/100 WBC (Bld) 2.3 % Normal [facility] Comment on above: Order Comment: Speci men Type: BLOOD SPECIMEN Ordering Facility: [facility] Address: [address] [place] [address] Performed By: #### 5 7021-8 #### [facility] CLIA [id number] [address] [place] [address] Erythrocyte distribution width (RBC) [Ratio] 12.8 % Normal 11.5-15.0 [facility] Comment on above: Order Comment: Speci men Type: BLOOD SPECIMEN Ordering Facility: [facility] Address: [address] [place] [address] Performed By: #### 5 7021-8 #### [facility] CLIA [id number] [address] [place] [address] [place] Hematocrit (Bld) [Volume fraction] 32.3 % Low 36.0-46.0 [facility] Comment on above: Order Comment: Speci men Type: BLOOD SPECIMEN Ordering Facility: [facility] Address: [address] [place] [address] Performed By: #### 5 7021-8 #### [facility] CLIA [id number] [address] [place] [address] [facility] OF [facility] Hemoglobin (Bld) [Mass/Vol] 10.7 g/dL Low 11.5-15.5 [facility] Comment on above: Order Comment: Speci men Type: BLOOD SPECIMEN Ordering Facility: [facility] Address: [address] [place] [address] Performed By: #### 5 7021-8 #### [facility] CLIA [id number] [address] [place] [address] [place] IMMATURE GRAN % 0.3 % Normal [facility] Comment on above: Order Comment: Speci men Type: BLOOD SPECIMEN [facility] [facility] Address: [address] [place] [address] Performed By: #### 5 7021-8 #### [facility] CLIA [id number] [address] [place] [address] [place] IMMATURE GRAN ABS <0.03 Normal <0.10 [facility] Comment on above: Order Comment: Speci men Type: BLOOD SPECIMEN Ordering Facility: [facility] Address: [address] [place] [address] Performed By: #### 5 7021-8 #### [facility] CLIA [id number] [address] [place] [address] [place] Lymphocytes (Bld) [#/Vol] 1.39 10*3/uL Normal 1.00-4.00 [facility] Comment on above: Order Comment: Speci men Type: BLOOD SPECIMEN Ordering Facility: [facility] Address: [address] [place] [address] Performed By: #### 5 7021-8 #### [facility] CLIA [id number] [address] [place] [address] Lymphocytes/100 WBC (Bld) 19.7 % Normal [facility] Comment on above: Order Comment: Speci men Type: BLOOD SPECIMEN Ordering Facility: [facility] Address: [address] [place] [address] Performed By: #### 5 7021-8 #### [facility] CLIA [id number] [address] [place] [address] [place] MCH (RBC) [Entitic mass] 29.8 pg Normal 26.0-34.0 [facility] Comment on above: Order Comment: Speci men Type: BLOOD SPECIMEN Ordering Facility: [facility] Address: [address] [place] [address] Performed By: #### 5 7021-8 #### [facility] CLIA [id number] [address] [place] [address] [place] MCHC (RBC) [Mass/Vol] 33.1 g/dL Normal 30.5-36.0 [facility] Comment on above: Order Comment: Speci men Type: BLOOD SPECIMEN Ordering Facility: [facility] Address: [address] [place] [address] Performed By: #### 5 7021-8 #### [facility] CLIA [id number] [address] [place] [address] [place] MCV (RBC) [Entitic vol] 90.0 fL Normal 80.0-100.0 [facility] Comment on above: Order Comment: Speci men Type: BLOOD SPECIMEN Ordering Facility: [facility] Address: [address] [place] [address] Performed By: #### 5 7021-8 #### [facility] CLIA [id number] [address] [place] [address] [place] Monocytes (Bld) [#/Vol] 0.55 10*3/uL Normal <0.87 [facility] Comment on above: Order Comment: Speci men Type: BLOOD SPECIMEN Ordering Facility: [facility] Address: [address] [place] [address] Performed By: #### 5 7021-8 #### [facility] CLIA [id number] [address] [place] [address] [place] Monocytes/100 WBC (Bld) 7.8 % Normal [facility] Comment on above: Order Comment: Speci men Type: BLOOD SPECIMEN Ordering Facility: [facility] Address: [address] [place] [address] Performed By: #### 5 7021-8 #### [facility] CLIA [id number] [address] [place] [address] [place] Neutrophils (Bld) [#/Vol] 4.88 10*3/uL Normal 1.45-7.50 [facility] Comment on above: Order Comment: Speci men Type: BLOOD SPECIMEN Ordering Facility: [facility] Address: [address] [place] [address] Performed By: #### 5 7021-8 #### [facility] CLIA [id number] [address] [place] [address] [place] Neutrophils/100 WBC (Bld) 69.3 % Normal [facility] Comment on above: Order Comment: Speci men Type: BLOOD SPECIMEN Ordering Facility: [facility] Address: [address] [place] [address] Performed By: #### 5 7021-8 #### [facility] CLIA [id number] [place] [address] [place] Nucleated RBC (Bld) [#/Vol] 10*3/uL Normal <0.01 [facility] Comment on above: Order Comment: Speci men Type: BLOOD SPECIMEN Ordering Facility: [facility] Address: [address] [place] [address] Performed By: #### 5 7021-8 #### [facility] CLIA [id number] [address] [place] [address] [place] Nucleated RBC/100 WBC (Bld) [Ratio] 0.0 /100 WBC Normal [facility] Comment on above: Order Comment: Speci men Type: BLOOD SPECIMEN Ordering Facility: [facility] Address: [address] [place] [address] Performed By: #### 5 7021-8 #### [facility] CLIA [id number] [address] [place] [address] [place] Platelet mean volume (Bld) [Entitic vol] 9.0 fL Normal 9.0-12.7 [facility] Comment on above: Order Comment: Speci men Type: BLOOD SPECIMEN Ordering Facility: [facility] Address: [address] [place] [address] Performed By: #### 5 7021-8 #### [facility] CLIA [id number] [address] [place] [address] [place] Platelets (Bld) [#/Vol] 241 10*3/uL Normal 150-400 [facility] Comment on above: Order Comment: Speci men Type: BLOOD SPECIMEN Ordering Facility: [facility] Address: [address] [place] [address] Performed By: #### 5 7021-8 #### [facility] CLIA [id number] [address] [place] [address] [place] RBC (Bld) [#/Vol] 3.59 10*6/uL Low 3.90-5.20 [facility] Comment on above: Order Comment: Speci men Type: BLOOD SPECIMEN Ordering Facility: [facility] Address: [address] [place], [place] [address] Performed By: #### 5 7021-8 #### [facility] CLIA [id number] [address] [place] [id number] [place] WBC (Bld) [#/Vol] 7.04 10*3/uL Normal 3.70-11.00 [facility] Comment on above: Order Comment: Speci men Type: BLOOD SPECIMEN Ordering Facility: [facility] Address: [address] [place] [address] Performed By: #### 5 7021-8 #### [facility] CLIA [id number] [address] [place] [id number] [place] CONSULT PROGon 03-29-2022 CONSULT PROG HNO ID: [id number] Author: Joslyn Jain APRN.AIR TUCKER Service: Pain Management Author Type: Nurse Practitioner [...] is on liq diet, currently on Dilaudid TOOL TURRET LATHE SET UP OPERATOR at 0/0.2/10/6 last 2 hours 06/27 bolus [...] No Relieved: Yes - NOW with increase TOOL TURRET LATHE SET UP OPERATOR and Repositioning and TOOL TURRET LATHE SET UP OPERATOR Is patient satisfied with pain control: Yes [...] mL PERIPHERAL NERVE CATHETER CONTINUOUS - HYDROmorphone TOOL TURRET LATHE SET UP OPERATOR 0.5 mg/mL in NaCl 0.9% 100 mL [...] % 69.3 (more content not included)... Normal [facility] Magnesium SerPl-mCncon 03-29 Magnesium [Mass/Vol] 1.4 mg/dL Low 1.7-2.3 [facility] Comment on above: Order Comment: Speci men Type: BLOOD SPECIMEN Ordering Facility: [facility] Address: [address] [place] [id number] Performed By: #### 5 8410-2 #### [facility] CLIA [id number] [address] NURSING PROGon 03-29-2022 NURSING PROG HNO ID: [id number] Author: Dipti Crowley RN Service: Nursing Author Type: Registered Nurse Type: Nursing Progress Note Filed: 03/29/2022 2:00 PM Note Text: Nursing Progress Note Patient Name: Mary Leal Patient Location: [place] [address] [address] __ Daily Note: Patient VSS. RA POx. Pain level better controlled now that TOOL TURRET LATHE SET UP OPERATOR initiated. B/L Ropivacaine Tap Blocks with dressings [...] This note was completed by: Dipti Crowley [facility] NURSING PROG HNO ID: [id number] Author: Kev Leone RN Service: ? Author Type: Registered Nurse Type: Nursing Progress Note Filed: 03/29/2022 3:53 AM Note Text: Nursing Progress Note Patient Name: Mary Leal Patient Location: [facility]/ __ Daily Note: 0350: Pt states she is in 10/10 pain, pt has no PO pain meds ordered, page sent to surgery resident This note was completed by: Kev Leone [facility] PT EDon 03-29-2022 PT ED HNO ID: [id number] Author: Merced Morales DTR Service: Nutrition Therapy Author Type: Energy Sales Broker Type: Patient Education Filed: 03/29/2022 11:05 AM [...] March 29, 2022 TIME: 11:04 AM PAGER: [facility] Phosphate SerPl-mCncon 03-29 Phosphate [Mass/Vol] 2.9 mg/dL Normal 2.7-4.8 [facility] Comment on above: Order Comment: Speci men Type: BLOOD SPECIMEN Ordering Facility: [facility] Address: [address] [place] [address] Performed By: #### 5 8410-2 #### [facility] CLIA [id number] [address] [place] [address] [place] ANES PRE-OPon 03-28-2022 ANES PRE-OP HNO ID: [id number] Author: Anibal Bertrand MD Service: Anesthesiology Author [...] (FLONASE) 50 mcg/actuation nasal spray Use 1 [place] in each nostril on (more content not included)... Normal [facility] BRIEF OP NOTon 03-28-2022 BRIEF OP NOT HNO ID: [id number] Author: Nita Lamas MD Service: Colorectal Author Type: Fellow Type: Brief Op Note Filed: 03/28/2022 3:43 PM Note Text: BRIEF OPERATIVE NOTE - COLORECTAL SURGERY Log ID: [id number] Surgery/Procedure Date: 03/28/2022 Incision/Procedure Start Time: 9:47 AM Incision Close/Procedure End Time: 3:40 PM Surgeon(s) and Customer Advocacy Manager(s): Surgeon(s) and Role: * Mary Obrien MD [...] DATE: March 28, 2022 TIME: 3:42 PM [facility] NURSING PROGon 03-28-2022 NURSING PROG HNO ID: [id number] Author: Merced Lay RN Service: ? Author Type: Registered Nurse Type: Nursing Progress Note Filed: 03/28/2022 6:56 PM Note Text: Nursing Progress Note Patient Name: Mary Leal Patient Location: [place] [address] [address] __ Transfer Note: [facility]. Actions taken: No futher actions taken at this time. Will continue to monitor and check with patient. Paged surgical team. Pt has TAP blocks, but orders were discontinued from PACU. New orders for blocks need to be placed in eMAR. Awaiting call back or orders. This note was completed by: Merced Lay [facility] NURSING PROG HNO ID: [id number] Author: Monica Nicole RN Service: Nursing Author Type: Registered Nurse Type: Nursing Progress Note Filed: 03/28/2022 6:35 PM Note Text: Nursing Progress Note Patient Name: Mary Leal Patient Location: [facility] OR POOL __ Daily Note: 1750: Dr. Novak notified of patients increase in heart rate from arrival to post op. Patient HR now maintaining in the 120s. 1830: residential construction instructor rounding at patient bedside. Dressing and abdomen assessed- drainage to be expected on island dressing. Notified him of patients HR running high and notified that patient normally takes 50mg atenolol but held today for surgery. Patient's pain managed and other VS stable at this time. residential construction instructor is OK with patient going to regular nursing floor at this time. Family updated. This note was completed by: Monica Nicole [facility] NURSING PROG HNO ID: [id number] Author: Vianney Chacon RN Service: Nursing Author [...] (RECOMMENDATION): None Electronically Signed By: Vianney Chacon [facility] OPERATIVE NOon 03-28-2022 OPERATIVE NO HNO ID: [id number] Author: Mary Obrien MD Service: Colorectal Author Type: Physician Type: Operative Report Filed: 03/28/2022 5:06 PM Note Text: COLON AND RECTAL SURGERY OPERATIVE REPORT PATIENT NAME: Mary Leal ADMISSION DATE: 03/28/2022 LOG ID: [id number] SURGERY/PROCEDURE DATE: 03/28/2022 INCISION/PROCEDURE START TIME: 9:47 AM INCISION CLOSE/PROCEDURE END TIME: 3:40 PM AGE: [age] year old SEX: female SURGEON(S)/PROCEDURALI ST(S) AND AUTOMATIC I THREADING MACHINE FEEDER(S): Surgeon(s) and Role: * Mary Obrien MD [...] The abdome (more content not included)... Normal [facility] SURGICAL PATHOLOGYon CASE REPORT Normal [facility] Comment on above: Order Comment: Speci harrison Type: BLOOD SPECIMEN Ordering Facility: [facility] Address: [address] [place], [place] [address] Result Comment: Surg ica Pathology Report Case: [id number] Authorizing Provider: Mary Obrien MD Collected: 03/28/2022 01:43 PM Ordering Location: [facility] Received: 03/28/2022 04:10 PM Operating Room Pathologist: Alexei Rodriguez MD Specimen: COLON RESECTION, terminal ileum with ileostomy Performed By: #### 5 7021-8 #### [facility] CLIA [id number] [place] [address] [place] CLINICAL HISTORY ILEORECTAL ANASTOMOSIS, TAKEDOWN OF ILEOSTOMY Normal [facility] Comment on above: Order Comment: Speci men Type: BLOOD SPECIMEN Ordering Facility: [facility] Address: [address] [place] [address] Performed By: #### 5 7021-8 #### [facility] CLIA [id number] [address] [place] [address] DIAGNOSIS COMMENT The histologic findings are nonspecific [...] evidence of associated inflammation or infectious organisms. [facility] Comment on above: Order Comment: Speci men Type: BLOOD SPECIMEN Ordering Facility: [facility] Address: [address] [place] [address] Performed By: #### 5 7021-8 #### [facility] CLIA [id number] [address] [place] [address] FINAL DIAGNOSIS [facility] Comment on above: Order Comment: Speci men Type: BLOOD SPECIMEN Ordering Facility: [facility] Address: [address] [place] [address] Result Comment: [place] n and terminal ileum with ileostomy, resection: - Colon with patchy active colitis, submucosal fibrosis, acute serositis, and fibrovascular adhesions (see comment). - Small bowel with focal transmural defect, acute serositis, fibrovascular adhesions, and changes consistent with ileostomy site. - Benign lymph nodes. JEL 03/31/2022 Performed By: #### 5 7021-8 #### [facility] CLIA [id number] [address] [place] [address] FINAL PERFORMING LAB [facility] Comment on above: Order Comment: Speci men Type: BLOOD SPECIMEN Ordering Facility: [facility] Address: [address] [place] [address] Result Comment: Diag nostic interpretation performed at [facility], [address] [place] [id number] CLIA# [id number] Records Manager: Howie Anderson M.D. Performed By: #### 5 7021-8 #### [facility] CLIA [id number] [address] [place] [address] [place] GROSS DESCRIPTION Normal [facility] Comment on above: Order Comment: Speci men Type: BLOOD SPECIMEN Ordering Facility: [facility] Address: [address] [place] [address] Result Comment: A. C OLON RESECTION. Received [...] diverticula. The serosa is jaimes-pink and smooth. Electronic Warfare Operator sections are submitted from distal to proximal [...] performed at [facility], [address] [place] [address] CLIA # [id number] Performed By: #### 5 7021-8 #### [facility] CLIA [id number] [address] [place] [address] [place] Q - CBC W/DIFF AND PLTon BASOABS 59 cells/uL Normal 0-200 [facility] Registered Travel Nurse Comment on above: Order Comment: [facility] performed at: [facility], [address] [place] [address], [address] [place] [address], [phone], Records Manager: Gopal Hamilton MD [facility] Date/Time: [facility] Results Received Date/Time: [facility] Reported Date/Time: Performed By: #### 9 68T, 37492D, %8293, 41182I, 6399, 496X #### [facility] Default [address] [place] [address] Basophils/100 WBC (Bld) 1.0 % Normal [facility] Registered Travel Nurse Comment on above: Order Comment: [facility] performed at: [facility], [facility], [address] [facility], [address] [place] [address], [phone], Records Manager: Gopal Hamilton MD [facility] Date/Time: [facility] Results Received Date/Time: [facility] Reported Date/Time: Performed By: #### 9 68T, 10823D, %8293, 07409N, 6399, 496X #### [facility] [address] [place] [address] EOSABS 171 cells/uL Normal 15-500 [facility] Specialist Comment on above: Order Comment: [facility] performed at: [facility], [employer], [address] [facility], [address] [place] [address], [address] [place] [address], Records Manager: Gopal Hamilton MD [facility] Date/Time: [facility] Results Received Date/Time: [facility] Reported Date/Time: Performed By: #### 9 68T, 93938G, %8293, 46720Q, 6399, 496X #### [facility] [address] [place] [address] Eosinophils/100 WBC (Bld) 2.9 % Normal [facility] Comment on above: Order Comment: [facility] performed at: [facility], [facility], [address] [place] , [address] [place] [address], [address] [place] [address], Records Manager: Gopal Hamilton MD [facility] Date/Time: [facility] Results Received Date/Time: [facility] Reported Date/Time: Performed By: #### 9 68T, 19102Y, %8293, 14973J, 6399, 496X #### [facility] [address] [place] [address] Erythrocyte distribution width (RBC) [Ratio] 12.9 % Normal 11.0-15.[address] [facility] Comment on above: Order Comment: [facility] performed at: [facility], [facility], [address] [place] , [address] [place] [address], [address] [place] [address], Records Manager: Gopal Hamilton MD [facility] Date/Time: [facility] Results Received Date/Time: [facility] Reported Date/Time: Performed By: #### 9 68T, 40734H, %8293, 48088L, 6399, 496X #### [facility] Default [address] [place] [address] Hematocrit (Bld) [Volume fraction] 38.1 % Normal 35.0-45.0 [facility] Registered Travel Nurse Comment on above: Order Comment: [facility] performed at: [facility], [facility], [address] [place] [address], [address] [place] [address], [phone], Records Manager: Gopal Hamilton MD [facility] Date/Time: [facility] Results Received Date/Time: [facility] Reported Date/Time: Performed By: #### 9 68T, 74655U, %8293, 29138G, 6399, 496X #### [facility] Default [address] [place] [address] Hemoglobin (Bld) [Mass/Vol] 12.9 g/dL Normal 11.7-15.5 [facility] Registered Travel Nurse Comment on above: Order Comment: [facility] performed at: [facility] [employer], [facility], [address] [place] [address], [address] [place] [address], [phone], Records Manager: Gopal Hamilton MD [facility] Date/Time: [facility] Results Received Date/Time: [facility] Reported Date/Time: Performed By: #### 9 68T, 93051A, %8293, 89428R, 6399, 496X #### [facility] Default [address] [place] [address] Lymphocytes (Bld) [#/Vol] 1.375 10*3/uL Normal 850-3900 [facility] Registered Travel Nurse Comment on above: Order Comment: [facility] performed at: [facility] [employer], [facility], [address] [place] [address], [address] [place] [address], [address] [place] [address], Records Manager: Gopal Hamilton MD [facility] Date/Time: [facility] Results Received Date/Time: [facility] Reported Date/Time: Performed By: #### 9 68T, 08814L, %8293, 57487I, 6399, 496X #### [facility] Default [address] [place] [address] Lymphocytes/100 WBC (Bld) 23.3 % Normal [facility] Comment on above: Order Comment: [facility] performed at: [employer], [employer] [facility], [address] [place] [address], [address] [place] [address], [address] [place] [address], Records Manager: Gopal Hamilton MD [facility] Date/Time: [facility] Results Received Date/Time: [facility] Reported Date/Time: Performed By: #### 9 68T, 40848H, %8293, 22903K, 6399, 496X #### [facility] Default [address] [place] [address] MCH (RBC) [Entitic mass] 30.0 pg Normal 27.0-33.[address] [facility] Comment on above: Order Comment: [facility] performed at: [facility], [employer], [address] [facility], [address] [place] [address], [address] [place] [address], Records Manager: Gopal Hamilton MD [facility] Date/Time: [facility] Results Received Date/Time: [facility] Reported Date/Time: Performed By: #### 9 68T, 75485B, %8293, 27962C, 6399, 496X #### [facility] Default [address] [place] [address] MCHC (RBC) [Mass/Vol] 33.9 g/dL Normal 32.0-36.[address] [facility] Comment on above: Order Comment: [facility] performed at: [facility] [employer], [facility], [address] [place] [address], [address] [place] [address], [address] [place] [address], Records Manager: Gopal Hamilton MD [facility] Date/Time: [facility] Results Received Date/Time: [facility] Reported Date/Time: Performed By: #### 9 68T, 40443V, %8293, 64928D, 6399, 496X #### [facility] Default [address] [place] [address] MCV (RBC) [Entitic vol] 88.6 fL Normal 80.0-100.0 [facility] Registered Travel Nurse Comment on above: Order Comment: [facility] performed at: [employer], [facility], [address] [place] [address], [address] [place] [address], [address] [place] [address], Records Manager: Gopal Hamilton MD [facility] Date/Time: [facility] Results Received Date/Time: [facility] Reported Date/Time: Performed By: #### 9 68T, 72483K, %8293, 20821T, 6399, 496X #### [facility] Default [address] [place] [address] MONOABS 460 cells/uL Normal 200-950 [facility] Registered Travel Nurse Comment on above: Order Comment: [facility] performed at: [facility], [address] [place] [address], [address] [place] [address], [address] [place] [address], Records Manager: Gopal Hamilton MD [facility] Date/Time: [facility] Results Received Date/Time: [facility] Reported Date/Time: Performed By: #### 9 68T, 80759C, %8293, 06879D, 6399, 496X #### [facility] Default [address] [place] [address] Monocytes/100 WBC (Bld) 7.8 % Normal [facility] Registered Travel Nurse Comment on above: Order Comment: [facility] performed at: [facility], [employer], [address] [place] [address], [address] [place] [address], [address] [place] [address], Records Manager: Gopal Hamilton MD [facility] Date/Time: [facility] Results Received Date/Time: [facility] Reported Date/Time: Performed By: #### 9 68T, 95333D, %8293, 95444S, 6399, 496X #### [facility] Default [address] [place] [address] Neutrophils (Bld) [#/Vol] 3.835 10*3/uL Normal 0232-2315 [facility] Registered Travel Nurse Comment on above: Order Comment: [facility] performed at: [facility], [employer], [address] [facility], [address] [place] [address], [address] [place] [address], Records Manager: Gopal Hamilton MD [facility] Date/Time: [facility] Results Received Date/Time: [facility] Reported Date/Time: Performed By: #### 9 68T, 59754Z, %8293, 83225Z, 6399, 496X #### [facility] Default [address] [place] [address] Neutrophils/100 WBC (Bld) 65 % Normal [facility] Specialist Comment on above: Order Comment: [facility] performed at: [facility], [facility], [address] , [address] [place] [address], [address] [place] [address], Records Manager: Gopal Hamilton MD [facility] Collection Date/Time: [facility] Results Received Date/Time: [facility] Reported Date/Time: Performed By: #### 9 68T, 12147U, %8293, 78834O, 6399, 496X #### [facility] Default [address] [place] [address] Platelet mean volume (Bld) [Entitic vol] 9.3 fL Normal 7.5-12.5 [facility] Registered Travel Nurse Comment on above: Order Comment: [facility] Testing performed at: [facility], [facility], [address] [place] [address], [address] [place] [address], [address] [place] [address], Records Manager: Gopal Hamilton MD [facility] Collection Date/Time: [facility] Results Received Date/Time: [facility] Reported Date/Time: Performed By: #### 9 68T, 63363W, %8293, 91707C, 6399, 496X #### [facility] Default [address] [place] [address] Platelets (Bld) [#/Vol] 409 10*3/uL High 140-[address] [facility] Comment on above: Order Comment: Quest Testing performed at: [employer], [employer] [facility], [address] [place] [address], [address] [place] [address], [address] [place] [address], Records Manager: Gopal Hamilton MD [facility] Collection Date/Time: [facility] Results Received Date/Time: [facility] Reported Date/Time: Performed By: #### 9 68T, 73534T, %8293, 74773Z, 6399, 496X #### [facility] Default [address] [place] [address] RBC (Bld) [#/Vol] 4.30 10*6/uL Normal 3.80-5.10 [facility] Comment on above: Order Comment: [facility] Testing performed at: [employer] [employer] [facility], [address] [place] [address], [address] [place] [address], [address] [place] [address], Records Manager: Gopal Hamilton MD [facility] Collection Date/Time: [facility] Results Received Date/Time: [facility] Reported Date/Time: Performed By: #### 9 68T, 36696B, %8293, 86187Q, 6399, 496X #### [facility] Default [address] [place] [address] WBC (Bld) [#/Vol] 5.9 10*3/uL Normal 3.8-10.8 [facility] Comment on above: Order Comment: [facility] Testing performed at: [employer], [employer] [facility], [address] [place] [address], [address] [place] [address], [address] [place] [address], Records Manager: Gopal Hamilton MD [facility] Collection Date/Time: [facility] Results Received Date/Time: [facility] Reported Date/Time: Performed By: #### 9 68T, 98744U, %8293, 08251X, 6399, 496X #### [facility] Default [address] [place] [address] Q - COMPREHENSIVE METABOLIC PANEL W/EGFRon 03-10-2022 Albumin [Mass/Vol] 4.3 g/dL Normal 3.6-5.1 [facility] Registered Travel Nurse Comment on above: Order Comment: [facility] Testing performed at: [employer], [employer] [facility], [address] [place] [address], [address] [place] [address], [address] [place] [address], Records Manager: Gopal Hamilton MD [facility] Collection Date/Time: [facility] Results Received Date/Time: [facility] Reported Date/Time: Performed By: #### 9 68T, 12073H, %8293, 65825U, 6399, 496X #### [facility] Default [address] [place] [address] Albumin/Globulin [Mass ratio] 1.7 {ratio} Normal 1.0-2.5 [facility] Registered Travel Nurse Comment on above: Order Comment: [facility] Testing performed at: [employer], [employer] [facility], [address] [facility], [address] [place] [address], [address] [place] [address], Records Manager: Gopal Hamilton MD [facility] Collection Date/Time: [facility] Results Received Date/Time: [facility] Reported Date/Time: Performed By: #### 9 68T, 86974K, %8293, 82516Q, 6399, 496X #### [facility] Default [address] [place] [address] ALP [Catalytic activity/Vol] 134 U/L High 31-[address] [facility] Comment on above: Order Comment: [facility] Testing performed at: [employer], [employer] [facility], [address] [place] [address], [address] [place] [address], [address] [place] [address], Records Manager: Gopal Hamilton MD [facility] Date/Time: [facility] Results Received Date/Time: [facility] Reported Date/Time: Performed By: #### 9 68T, 44646B, %8293, 75569V, 6399, 496X #### [facility] Default [address] [place] [address] ALT [Catalytic activity/Vol] 41 U/L High 6-[address] [facility] Comment on above: Order Comment: [facility] Testing performed at: [employer], [employer] [facility], [address] [place] [address], [address] [place] [address], [address] [place] [address], Records Manager: Gopal Hamilton MD [facility] Collection Date/Time: [facility] Results Received Date/Time: [facility] Reported Date/Time: Performed By: #### 9 68T, 15727G, %8293, 06788S, 6399, 496X #### [facility] Default [address] [place] [address] AST [Catalytic activity/Vol] 33 U/L Normal 10-[address] [facility] Comment on above: Order Comment: [facility] Testing performed at: [employer], [employer] [facility], [address] [place] [address], [address] [place] [address], [address] [place] [address], Records Manager: Gopal Hamilton MD [facility] Date/Time: [id number] [facility] Results Received Date/Time: [facility] Reported Date/Time: Performed By: #### 9 68T, 54775N, %8293, 96648C, 6399, 496X #### [facility] Default [address] [place] [address] BUN/CREA 17 NOT APPLICABLE Normal 6-22 [place] Registered Travel Nurse Comment on above: Order Comment: [facility] Testing performed at: [employer], [employer] [facility], [address] [facility], [address] [place] [address], [address] [place] [address], Records Manager: Gopal Hamilton MD [facility] Collection Date/Time: [facility] Results Received Date/Time: [facility] Reported Date/Time: Performed By: #### 9 68T, 35615I, %8293, 78322P, 6399, 496X #### [facility] Default [address] [place] [address] Calcium [Mass/Vol] 9.6 mg/dL Normal 8.6-10.2 [facility] Registered Travel Nurse Comment on above: Order Comment: [facility] Testing performed at: [employer], [employer] [facility], [address] , [address] [place] [address], [address] [place] [address], Records Manager: Gopal Hamilton MD [facility] Collection Date/Time: [facility] Results Received Date/Time: [facility] Reported Date/Time: Performed By: #### 9 68T, 54345O, %8293, 02815L, 6399, 496X #### [facility] Default [address] [place] [address] Chloride [Moles/Vol] 103 mmol/L Normal 98-110 [facility] Comment on above: Order Comment: [facility] Testing performed at: [employer], [employer] [facility], [address] , [address] [place] [address], [address] [place] [address], Records Manager: Gopal Hamilton MD [facility] Collection Date/Time: [facility] Results Received Date/Time: [facility] Reported Date/Time: Performed By: #### 9 68T, 06669S, %8293, 22006W, 6399, 496X #### [facility] Default [address] [place] [address] CO2 [Moles/Vol] 27 mmol/L Normal 20-32 [facility] Registered Travel Nurse Comment on above: Order Comment: [facility] Testing performed at: [employer], [employer] [facility], [address] [facility], [address] [place] [address], [address] [place] [address], Records Manager: Gopal Hamilton MD [facility] Collection Date/Time: [facility] Results Received Date/Time: [facility] Reported Date/Time: Performed By: #### 9 68T, 25883E, %8293, 04798E, 6399, 496X #### [facility] Default [address] [place] [address] Creatinine [Mass/Vol] 0.65 mg/dL Normal 0.50-1.10 Nor [facility] Registered Travel Nurse Comment on above: Order Comment: [facility] Testing performed at: [employer], [employer] [facility], [address] [facility], [address] [place] [address], [address] [place] [address], Records Manager: Gopal Hamilton MD [facility] Collection Date/Time: [facility] Results Received Date/Time: [facility] Reported Date/Time: Performed By: #### 9 68T, 80856B, %8293, 58808H, 6399, 496X #### [facility] Default [address] [place] [address] eGFRAA (Quest) 121 mL/min/1.73m2 Normal > OR = 60 Nor [facility] Registered Travel Nurse Comment on above: Order Comment: [facility] Testing performed at: [employer], [employer] [facility], [address] [facility], [address] [place] [address], [address] [place] [address], Records Manager: Gopal Hamilton MD [facility] Collection Date/Time: [facility] Results Received Date/Time: [facility] Reported Date/Time: Performed By: #### 9 68T, 45259B, %8293, 54407M, 6399, 496X #### [facility] Default [address] [place] [address] eGFRNAA (Quest) 104 mL/min/1.73m2 Normal > OR = 60 No [place]thern [place] Registered Travel Nurse Comment on above: Order Comment: [facility] Testing performed at: [employer], [employer] [facility], [address] [place] [address], [address] [place] [address], [address] [place] [address], Records Manager: Gopal Hamilton MD [facility] Collection Date/Time: [facility] Results Received Date/Time: [facility] Reported Date/Time: Performed By: #### 9 68T, 37821Y, %8293, 47776T, 6399, 496X #### [facility] Default [address] [place] [address] Globulin (S) [Mass/Vol] 2.5 g/dL Normal 1.9-3.7 [facility] Registered Travel Nurse Comment on above: Order Comment: [facility] Testing performed at: [employer], [employer] [facility], [address] [place] [address], [address] [place] [address], [address] [place] [address], Records Manager: Gopal Hamilton MD [facility] Collection Date/Time: [facility] Results Received Date/Time: [facility] Reported Date/Time: Performed By: #### 9 68T, 45669Z, %8293, 77837G, 6399, 496X #### [facility] Default [address] [place] [address] Glucose [Mass/Vol] 94 mg/dL Normal 65-99 [facility] Comment on above: Order Comment: [facility] Testing performed at: [employer], [employer] [facility], [address] [place] [address], [address] [place] [address], [address] [place] [address], Records Manager: Gopal Hamilton MD [facility] Collection Date/Time: [facility] Results Received Date/Time: [facility] Reported Date/Time: Result Comment: Fasting reference interval Performed By: #### 9 68T, 52883Y, %8293, 94052X, 6399, 496X #### [facility] Default [address] [place] [address] Potassium [Moles/Vol] 4.4 mmol/L Normal 3.5-5.3 Venita larson [place] Registered Travel Nurse Comment on above: Order Comment: [facility] Testing performed at: [employer] [facility], [address] [facility], [address] [place] [address], [address] [place] [address], Records Manager: Gopal Hamilton MD [facility] Collection Date/Time: [facility] Results Received Date/Time: [facility] Reported Date/Time: Performed By: #### 9 68T, 77603X, %8293, 80549T, 6399, 496X #### [facility] Default [address] [place] [address] Protein [Mass/Vol] 6.8 g/dL Normal 6.1-8.1 Jay gambino [place] Registered Travel Nurse Comment on above: Order Comment: [facility] Testing performed at: [employer], [employer] [facility], [address] [facility], [address] [place] [address], [address] [place] [address], Records Manager: Gopal Hamilton MD [facility] Collection Date/Time: [facility] Results Received Date/Time: [facility] Reported Date/Time: Performed By: #### 9 68T, 53040K, %8293, 38845W, 6399, 496X #### [facility] Default [address] [place] [address] Sodium [Moles/Vol] 138 mmol/L Normal 135-146 Jay gambino [place] Registered Travel Nurse Comment on above: Order Comment: [facility] Testing performed at: [employer], [employer] [facility], [address] [facility], [address] [place] [address], [address] [place] [address], Records Manager: Gopal Hamilton MD [facility] Collection Date/Time: [facility] Results Received Date/Time: [facility] Reported Date/Time: Performed By: #### 9 68T, 10863O, %8293, 74549J, 6399, 496X #### [facility] Default [address] [place] [address] TBIL <0.3 Normal 0.2-1.2 [facility] Registered Travel Nurse Comment on above: Order Comment: [facility] Testing performed at: [employer], [employer] [facility], [address] [facility], [address] [place] [address], [address] [place] [address], Records Manager: Gopal Hamilton MD [facility] Collection Date/Time: [facility] Results Received Date/Time: [facility] Reported Date/Time: Performed By: #### 9 68T, 14932K, %8293, 63420S, 6399, 496X #### [facility] Default [address] [place] [address] Urea nitrogen [Mass/Vol] 11 mg/dL Normal 7-25 [facility] Registered Travel Nurse Comment on above: Order Comment: [facility] Testing performed at: [place] [facility], [address] [facility], [address] [place] [address], [address] [place] [address], Records Manager: Gopal Hamilton MD [facility] Collection Date/Time: [facility] Results Received Date/Time: [facility] Reported Date/Time: Performed By: #### 9 68T, 93756D, %8293, 47261U, 6399, 496X #### [facility] Default [address] [place] [address] Q - DLDL REFLEXon 03-10-2022 Cholesterol in LDL [Mass/Vol] 87 mg/dL Normal <100 [facility] Registered Travel Nurse Comment on above: Order Comment: [facility] Testing performed at: [place] [facility], [address] [place] [address], [address] [place] [address], [address] [place] [address], Records Manager: Gopal Hamilton MD [facility] Date/Time: [facility] Results Received Date/Time: [facility] Reported Date/Time: Result Comment: Desirable range <100 mg/dL for primary prevention; <70 mg/dL for patients with CHD or diabetic patients with > or = 2 CHD risk factors. Performed By: #### 9 68T, 43639P, %8293, 85263D, 6399, 496X #### [facility] Default [address] [place] [address] Q - HEMOGLOBIN A1Con 022 HEMOGLOBIN A1c 5.0 % of total Hgb Normal <5.7 [facility] Comment on above: Order Comment: [facility] Testing performed at: [employer], [employer] [facility], [address] [facility], [address] [place] [address], [phone], Records Manager: Gopal Hamilton MD [facility] Collection Date/Time: [...] in Diabetes(ADA). Performed By: #### 9 68T, 89039A, %8293, 60188Q, 6399, 496X #### [facility] Default [address] [place] [address] Q - Lipid Panelon 03-10-2022 Cholesterol [Mass/Vol] 230 mg/dL High <[address] [facility] Comment on above: Order Comment: [facility] Testing performed at: [employer], [employer] [facility], [address] , [address] [place] [address], [phone], Records Manager: Gopal Hamilton MD [facility] Collection Date/Time: [facility] Results Received Date/Time: [facility] Reported Date/Time: Performed By: #### 9 68T, 22994C, %8293, 23340U, 6399, 496X #### [facility] Default [address] [place] [address] Cholesterol in HDL [Mass/Vol] 52 mg/dL Normal > OR = 50 [facility] Registered Travel Nurse Comment on above: Order Comment: [facility] Testing performed at: [employer], [employer] [facility], [address] , [address] [place] [address], [phone], Records Manager: Gopal Hamilton MD [facility] Collection Date/Time: [facility] Results Received Date/Time: [facility] Reported Date/Time: Performed By: #### 9 68T, 87382U, %8293, 50538H, 6399, 496X #### [facility] Default [address] [place] [address] Cholesterol.total/Cho lesterol in HDL [Mass ratio] 4.4 {ratio} Normal <5.0 [place] Registered Travel Nurse Comment on above: Order Comment: [facility] Testing performed at: [employer], [employer] [facility], [address] , [address] [place] [address], [phone], Records Manager: Gopal Hamilton MD [facility] Collection Date/Time: [facility] Results Received Date/Time: [facility] Reported Date/Time: Performed By: #### 9 68T, 92156G, %8293, 51043R, 6399, 496X #### [facility] Default [address] [place] [address] LDLD SEE NOTE Normal [place] Registered Travel Nurse Comment on above: Order Comment: [facility] Testing performed at: [employer], [employer] [facility], [address] , [address] [place] [address], [address], Records Manager: Gopal Hamilton MD [facility] Date/Time: [...] LDL-C. Estevan SCHILLING et al. ZANA. 2013;310(19): 5127-0942 (http://[email or web address]/[email or web address]) Performed By: #### 9 68T, 62634C, %8293, 65435J, 6399, 496X #### [facility] Default [address] [place] [address] NON HDL CHOLESTEROL 178 mg/dL (calc) High <130 [facility] Registered Travel Nurse Comment on above: Order Comment: [facility] Testing performed at: [place] [facility], [address] [place] [address], [address] [place] [address], [address], Records Manager: Gopal Hamilton MD [facility] Collection Date/Time: [facility] Results Received Date/Time: [facility] Reported Date/Time: Result Comment: For patients with diabetes plus 1 major ASCVD risk factor, treating to a non-HDL-C goal of <100 mg/dL (LDL-C of <70 mg/dL) is considered a therapeutic option. Performed By: #### 9 68T, 42651V, %8293, 67565L, 6399, 496X #### [facility] Default [address] [place] [address] Triglyceride [Mass/Vol] 410 mg/dL High <150 [facility] Registered Travel Nurse Comment on above: Order Comment: [facility] Testing performed at: [place] [facility], [address] [place] [address], [address] [place] [address], [address], Records Manager: Gopal Hamilton MD [facility] Date/Time: [id number] [facility] Results Received Date/Time: [facility] Reported Date/Time: Result Comment: If a non-fasting specimen was collected, consider repeat triglyceride testing on a fasting specimen if clinically indicated. João et al. J. of Clin. Lipidol. 2015;9:129-169. Performed By: #### 9 68T, 51416J, %8293, 47247R, 6399, 496X #### [facility] Default [address] [place] [address] Q - TROPONIN Ion 03-10-2022 TROPONIN I 3 ng/L Normal < OR = [address] [facility] Comment on above: Order Comment: [facility] Testing performed at: [employer], [employer] [facility], [address] [facility], [address] [place], [address], Records Manager: Gopal Hamilton MD [facility] Collection Date/Time: [facility] Results Received Date/Time: [facility] Reported Date/Time: Result Comment: In accord with published recommendations, serial testing of troponin I at intervals of 2 to 4 hours for up to 12 to 24 hours is suggested in order to corroborate a single troponin I result. An elevated troponin alone is not sufficient to make the diagnosis of MS. Performed By: #### 9 68T, 55876P, %8293, 71367K, 6399, 496X #### [facility] Default [address] [place] [address] UA DIP, URINE (POC)on 2021 BILIRUBIN UA (POCT) Negative Negative [facility] CLARITY UA (POCT) Clear [facility] COLOR UA (POCT) Yellow [facility] GLUCOSE UA (POCT) Negative Negative mg/dL [facility] HEMOGLOBIN/BLOOD UA (POCT) Negative Negative [facility] KETONE UA (POCT) Negative Negative mg/dL [facility] LEUKOCYTES UA (POCT) Negative Negative [facility] NITRITE UA (POCT) Negative Negative [facility] PH UA (POCT) 5.0 4.5 - 8.0 [facility] Protein Ql (U) Trace Abnormal Negative mg/dL [facility] SPECIFIC GRAVITY UA (POCT) >=1.030 1.005 - 1.030 [facility] UROBILINOGEN UA (POCT) 0.2 E.U./dL Normal E.U./dL [facility] CNTHERAPYon 01-31-2022 CNTHERAPY OT/PT/Speech Visit (PTLHO) MARY LEAL ([id number]) 1970 F Date Time Provider Department 01/31/22 10:30 AM NEWTON WOODWARD PTLSAVANNAH Date Time Provider Department Center 01/31/2022 10:30 AM [id number], JILL PTKALEIGH [facility] Reason for Visit: Physical Therapy [...] (FLONASE) 50 mcg/actuation nasal spray Use 1 [place] in each nostril once daily. - carBAMazepine [...] Take 50 mg by mouth once daily. [facility] CNTHERAPYon 01-24-2022 CNTHERAPY OT/PT/Speech Visit (PTLHO) MARY LEAL ([id number]) 1970 F Date Time Provider Department 01/24/22 10:30 AM NEWTON WOODWARD Date Time Provider Department Center 01/24/2022 10:30 AM [id number] WOODWARD [facility] Reason for Visit: Physical Therapy [...] (FLONASE) 50 mcg/actuation nasal spray Use 1 [place] in each nostril once daily. - carBAMazepine [...] Take 50 mg by mouth once daily. [facility] CNTHERAPYon 01-18-2022 CNTHERAPY OT/PT/Speech Visit (PTLHO) MARY LEAL ([id number]) 1970 F Date Time Provider Department 01/18/22 12:15 PM JESSI ISAACS PTLSAVANNAH Date Time Provider Department [place] 01/18/2022 12:15 PM [id number]: [facility] [...] (FLONASE) 50 mcg/actuation nasal spray Use 1 [place] in each nostril once daily. - carBAMazepine [...] mg by mouth once daily. Letter Text [facility] 12-27-[address] [facility] ID: [id number] Author: Sonido Owen MD Service: Colorectal Author [...] the PACU and was transferred to the [facility]. Postoperatively, the patient recovered well. Her [...] 50 mg Finesse (more content not included)... [facility] CONSULTon 12-27-2021 CONSULT HNO ID: [id number] Author: Dai Hines RN Service: Wound/Ostomy Author Type: Registered Nurse Type: Consults Filed: 12/27/2021 3:32 PM Note Text: STOMA CARE POST-OPERATIVE ASSESSMENT AND PATIENT EDUCATION Patient Name: Mary Leal Date: December 27, 2021 Time: 3:20 PM ET Care Outcome: Ms. Leal was seen today on the [facility] for ostomy education and a pouch change lesson. ET's Next Scheduled Visit: Complete. STOMA ASSESSMENT Stoma type: Loop ileostomy Diameter: 35 mm with and extra 1 mm cut on the medial side of the pouch. Location: RLQ Protrusion: Budded, Os points downward Mucosal condition and color: Red and Bivins and moist. Boni: No Mucocutaneous Junction: Intact [...] one piece cut to fit drainable pouch (#09727) and Coloplast Brava moldable ring (2mm) #[id number]. Brava barrier strips, product # [id number] applied around the border of the pouch. [...] THE CHART OR MODIFY PRINTED COPY. Normal [facility] NURSING PROGon 12-27-2021 NURSING PROG HNO ID: [id number] Author: Marizol Hankins, RN Service: ? Author Type: Registered Nurse Type: Nursing Progress Note Filed: 12/27/2021 4:39 PM Note Text: Nursing Progress Note Patient Name: Mary Leal Patient Location: [place] [address] __ Daily Note: Pt AANDO x 3. [...] This note was completed by: Marizol Hankins [facility] NUTRITIONon 12-27-2021 NUTRITION HNO ID: [id number] Author: Merced Morales DTR Service: Nutrition Therapy Author Type: Energy Sales Broker Type: Nutrition Filed: 12/27/2021 12:16 PM Note Text: NUTRITION THERAPY DIE CUTTER OPERATOR NOTE SERVICE DATE: 12/27/2021 SERVICE TIME: [...] DATE: December 27, 2021 TIME: 12:15 PM [facility] PT EDon 12-27-2021 PT ED HNO ID: [id number] Author: Merced Morales DTR Service: Nutrition Therapy Author Type: Energy Sales Broker Type: Patient Education Filed: 12/27/2021 12:16 PM [...] December 27, 2021 TIME: 12:16 PM PAGER: [facility] Basic Metabolic Panlon 12-26 Anion gap [Moles/Vol] 9 mmol/L Normal 9-18 [facility] Comment on above: Performed By: #### B MP #### [place] [address] Calcium [Mass/Vol] 8.5 mg/dL Normal 8.5-10.5 [facility] Comment on above: Performed By: #### B MP #### [place] [phone] Chloride [Moles/Vol] 102 mmol/L Normal 98-110 [facility] Comment on above: Performed By: #### B MP #### [place] [phone] CO2 [Moles/Vol] 28 mmol/L Normal 23-32 [facility] Comment on above: Performed By: #### B MP #### [place] [phone] Creatinine [Mass/Vol] 0.62 mg/dL Low 0.70-1.40 [facility] Comment on above: Performed By: #### B MP #### [place] [phone] eGFR- Amer. >60 Normal >59 [facility] Comment on above: Performed By: #### B MP #### [place] [phone] eGFR-All Other Races >60 Normal >59 [facility] Comment on above: Result Comment: eGFR [...] By: #### B MP #### [place] [phone] Glucose [Mass/Vol] 71 mg/dL Normal 65-100 [facility] Comment on above: Performed By: #### B MP #### [place] [phone] Potassium [Moles/Vol] 4.0 mmol/L Normal 3.5-5.0 [facility] Comment on above: Performed By: #### B MP #### [place] [phone] Sodium [Moles/Vol] 139 mmol/L Normal 132-148 [facility] Comment on above: Performed By: #### B MP #### [place] [phone] Urea nitrogen [Mass/Vol] 10 mg/dL Normal 8-25 [facility] Comment on above: Performed By: #### B MP #### [place] [phone] NURSING PROGon 12-26-2021 NURSING PROG HNO ID: [id number] Author: Dipti Crowley RN Service: Nursing Author Type: Registered Nurse Type: Nursing Progress Note Filed: 12/26/2021 5:25 PM Note Text: Nursing Progress Note Patient Name: Mary Leal Patient Location: [facility]/-TE3F-49 __ Daily Note: Call discontinued as directed in orders. 700cc output from call. 250cc NS instilled and then call catheter removed. Patient assisted to BSC and voided 200cc pink tinged urine. Patient assisted back to bed, not wanting to go to chair. Call light in reach. This note was completed by: Dipti [facility] NURSING PROG HNO ID: [id number] Author: Dipti Crowley, RN Service: Nursing Author Type: Registered Nurse Type: Nursing Progress Note Filed: 12/26/2021 3:51 PM Note Text: Nursing Progress Note Patient Name: Mary Leal Patient Location: [place] [address] __ Daily Note: Patient AANDOx3. VSS. 2L NC POx. IVF infusing as ordered. Dilaudid TOOL TURRET LATHE SET UP OPERATOR, OXY IR on for pain. Patient drowsy yet easily arousable. Lap sites and transverse incision ELENI with glue. Ileostomy draining liquid brown. Call draining clear yellow. PAS on. No edema. Fa,saman at bed side. Call light in reach. This note was completed by: [facility] Basic Metabolic Panlon 12-25 Anion gap [Moles/Vol] 9 mmol/L Normal 9-18 [facility] Comment on above: Performed By: #### B MP #### [facility] [address] [place] [address] Calcium [Mass/Vol] 8.5 mg/dL Normal 8.5-10.5 [facility] Comment on above: Performed By: #### B MP #### [place] [address] Chloride [Moles/Vol] 104 mmol/L Normal 98-110 [facility] Comment on above: Performed By: #### B MP #### [facility] [id number] [place] [address] CO2 [Moles/Vol] 28 mmol/L Normal 23-32 [facility] Comment on above: Performed By: #### B MP #### [place] [address] Creatinine [Mass/Vol] 0.72 mg/dL Normal 0.70-1.40 [facility] Comment on above: Performed By: #### B MP #### [place] [address] eGFR- Amer. >60 Normal >59 [facility] Comment on above: Performed By: #### B MP #### [place] [phone] eGFR-All Other Races >60 Normal >59 [facility] Comment on above: Result Comment: eGFR [...] By: #### B MP #### [place] [phone] Glucose [Mass/Vol] 91 mg/dL Normal 65-100 [facility] Comment on above: Performed By: #### B MP #### [place] [phone] Potassium [Moles/Vol] 4.0 mmol/L Normal 3.5-5.0 [facility] Comment on above: Performed By: #### B MP #### [address] [place] [address] Sodium [Moles/Vol] 141 mmol/L Normal 132-148 [facility] Comment on above: Performed By: #### B MP #### [place] [address] Urea nitrogen [Mass/Vol] 12 mg/dL Normal 8-25 [facility] Comment on above: Performed By: #### B MP #### [place] [address] CASE MGT INIT ASSESon 2021 CASE MGT INIT ASSES HNO ID: [id number] Author: TITO Whitt Service: ? Author Type: Manufacturing Controller Type: Care Mgt Initial Assessment Filed: 12/25/2021 11:43 AM Note Text: CARE MANAGEMENT: ASSESSMENT AND DISCHARGE PLAN SERVICE DATE: December 25, 2021 SERVICE TIME: 11:39 AM PRIMARY CARE PHYSICIAN: Eliceo Gómez DO ADMISSION STATUS: Inpatient Needs Prior to Discharge: Facility or Agency Choices;Home Care Order MEDICAL: PARAMOUNT ADVANTAGE MEDICAID Patient/Electronic Warfare Operator Stated Goals: To have reduction in symptoms Health Insurance: [facility] Issues Impacting Discharge Plan: None Last Discharge Date: 10/14/20 Is this Within the Past 30 days? Last discharge within 30 days: No Advance Directive: Current Advance Directive: Health Care Power of Manager Group In Chart: No Health LiteracyHow often do [...] Completely I feel financially burdened by my [id number]-kp-ifyedt expenses for my prescription medication:: 0 - Disagree Completely Risk Score: 0 Patient is categorized as: Low risk < 2 Are you interested in bedside delivery of your medications? Yes Is Patient Psychosocially Complex?: No ASSESSMENT AND PLAN: Medical Needs: Medical Needs: None Psychosocial Needs: Psychosocial Needs: None FREEDOM OF CHOICE EXPLAINED: Withams of Choice Given: Yes Level of Care Discussed: Home Care Financial Disclosure Provided: Yes Financial Disclosure Comments: formerly [facility] Provider List: Home Care Provider list within the patient's requested geographic area shared with the patient/family: Yes within: 15 miles of zip code: [address] Quality and resource use metrics shared with [...] bedside with pt during assessment. Charo Obando [phone]. Home care referrals sent. Daughter to transport at time of discharge. SIGNATURE: TITO Whitt PATIENT NAME: Mary Leal DATE: December 25, 2021 TIME: 11:39 AM PAGER/CONTACT #: [phone] Normal [facility] CBC and Differentialon 12-25 Abs Baso 0.03 k/uL Normal <0.11 [facility] Comment on above: Performed By: #### 5 7021-8 #### [facility] CLIA [id number] [address] [place] [address] [place] Abs Custer 0.45 k/uL Normal <0.87 [facility] Comment on above: Performed By: #### 5 7021-8 #### [facility] CLIA [id number] [address] [place] [address] [place] Abs Neut 3.85 k/uL Normal 1.45-7.50 [facility] Comment on above: Performed By: #### 5 7021-8 #### [facility] CLIA [id number] [address] [place] [address] [place] Absolute nRBC <0.01 Normal <0.01 [facility] Comment on above: Performed By: #### 5 7021-8 #### [facility] CLIA [id number] [address] [place] [address] [place] Basophils/100 WBC (Bld) 0.5 % Normal [facility] Comment on above: Performed By: #### 5 7021-8 #### [facility] CLIA [id number] [address] [place] [address] [place] DTYPE Auto Diff Normal [facility] Comment on above: Performed By: #### 5 7021-8 #### [facility] CLIA [id number] [address] [place] [address] [place] Eosinophils (Bld) [#/Vol] 0.14 10*3/uL Normal <0.46 [facility] Comment on above: Performed By: #### 5 7021-8 #### [facility] CLIA [id number] [address] [place] [address] [place] Eosinophils/100 WBC (Bld) 2.3 % Normal [facility] Comment on above: Performed By: #### 5 7021-8 #### [facility] CLIA [id number] [address] [place] [address] [place] Erythrocyte distribution width (RBC) [Ratio] 11.6 % Normal 11.5-15.0 [facility] Comment on above: Performed By: #### 5 7021-8 #### [facility] CLIA [id number] [address] [place] [address] Hematocrit (Bld) [Volume fraction] 35.2 % Low 36.0-46.0 [facility] Comment on above: Performed By: #### 5 7021-8 #### [facility] CLIA [id number] [address] [place] [address] [place] Hemoglobin (Bld) [Mass/Vol] 11.6 g/dL Normal 11.5-15.5 [facility] Comment on above: Performed By: #### 5 7021-8 #### [facility] CLIA [id number] [address] [place] [address] Lymphocytes (Bld) [#/Vol] 1.47 10*3/uL Normal 1.00-4.00 [facility] Comment on above: Performed By: #### 5 7021-8 #### [facility] CLIA [id number] [address] [place] [address] Lymphocytes/100 WBC (Bld) 24.7 % Normal [facility] Comment on above: Performed By: #### 5 7021-8 #### [facility] CLIA [id number] [address] [place] [address] [place] MCH 29.5 pG Normal 26.0-34.0 [facility] Comment on above: Performed By: #### 5 7021-8 #### [facility] CLIA [id number] [address] [place] [address] [place] MCHC (RBC) [Mass/Vol] 33.0 g/dL Normal 30.5-36.0 [facility] Comment on above: Performed By: #### 5 7021-8 #### [facility] CLIA [id number] [address] [place] [address] [place] MCV (RBC) [Entitic vol] 89.6 fL Normal 80.0-100.0 [facility] Comment on above: Performed By: #### 5 7021-8 #### [facility] CLIA [id number] [place] [address] [place] Monocytes/100 WBC (Bld) 7.6 % Normal [facility] Comment on above: Performed By: #### 5 7021-8 #### [facility] CLIA [id number] [address] [place] [address] [place] Neutrophils/100 WBC (Bld) 64.9 % Normal [facility] Comment on above: Performed By: #### 5 7021-8 #### [facility] CLIA [id number] [address] [place] [address] [place] NRBCs 0.0 /100 WBC Normal 0 [facility] Comment on above: Performed By: #### 5 7021-8 #### [facility] CLIA [id number] [address] [place] [address] [place] Platelet mean volume (Bld) [Entitic vol] 9.0 fL Normal 9.0-12.7 [facility] Comment on above: Performed By: #### 5 7021-8 #### [facility] CLIA [id number] [address] [place] [address] [place] Platelets (Bld) [#/Vol] 271 10*3/uL Normal 150-400 [facility] Comment on above: Performed By: #### 5 7021-8 #### [facility] CLIA [id number] [address] [place] [address] [place] RBC (Bld) [#/Vol] 3.93 10*6/uL Normal 3.90-5.20 [facility] Comment on above: Performed By: #### 5 7021-8 #### [facility] CLIA [id number] [address] [place] [address] [place] WBC (Bld) [#/Vol] 5.96 10*3/uL Normal 3.70-11.00 [facility] Comment on above: Performed By: #### 5 7021-8 #### [facility] CLIA [id number] [address] [place] CONSULTon 12-25-2021 CONSULT HNO ID: [id number] Author: Tri Kowalski APRN.AIR TUCKER Service: Wound/Ostomy Author Type: Nurse Practitioner Type: Consults Filed: 12/25/2021 11:37 AM Note Text: OSTOMY SERVICE CONSULT MACHINE PACKAGE SEALER SERVICE DATE: 12/25/2021 SERVICE TIME: 1015 Consultation [...] HX 07/2021 revision - VAGINAL HYSTERECTOMY 2014 [facility] 10/2015 for endometriosis, has remaining [...] mL 20 mEq INTRAVENOUS PRN - HYDROmorphone TOOL TURRET LATHE SET UP OPERATOR 0.5 mg/mL in NaCl 0.9% 100 mL [...] with h (more content not included)... Normal [facility] NURSING PROGon 12-25-2021 NURSING PROG HNO ID: [id number] Author: Marilyn Henning RN Service: ? Author Type: Registered Nurse Type: Nursing Progress Note Filed: 12/25/2021 7:01 PM Note Text: Nursing Progress Note Patient Name: Mary Leal Patient Location: [place] [address] __ Daily Note: 0930 Pt AANDOx3. Lap sites intact. ABD tender. TOOL TURRET LATHE SET UP OPERATOR pump running. Stoma beefy red, dark brown liquid output. Pt stated that the eye pressure felt overnite has resolved. Call remains in place until OBGYN sees pt 12/26. Pt requesting PO pain medication. 1100 Pt up to chair. [address] Ontiveros bedside. 5mg oxy ordered q4 PRN. This note was completed by: Marilyn Henning [facility] NURSING PROG HNO ID: [id number] Author: Beto Ford RN Service: ? Author Type: Registered Nurse Type: Nursing Progress Note Filed: 12/25/2021 6:12 AM Note Text: Nursing Progress Note Patient Name: Mary Leal Patient Location: [place] [address]/[place] [address] __ Daily Note: Pt has been complaining [...] This note was completed by: Beto Ford [facility] ANES POSTPROC EVALon 022 ANES POSTPROC EVAL HNO ID: [id number] Author: Charisse Aggarwal MD Service: Anesthesiology Author [...] incontinence urge and stress (male)(female) [N39.46]) Surgeons: Mray Obrien MD; Pam Wang MD Responsible Provider: [...] December 24, 2021 TIME: 4:17 PM CSN: [id number] [facility] ANES PRE-OPon 12-24-2021 ANES PRE-OP HNO ID: [id number] Author: Chayito Ojeda MD Service: Anesthesiology Author [...] December 24, 2021 TIME: 7:27 AM CSN: [id number] [facility] BRIEF OP NOTon 12-24-2021 BRIEF OP NOT HNO ID: [id number] Author: Jenifer Ayala MD Service: Colorectal Author Type: Fellow Type: Brief Op Note Filed: 12/24/2021 12:16 PM Note Text: BRIEF OPERATIVE NOTE - COLORECTAL SURGERY Log ID: [id number] Surgery/Procedure Date: 12/24/2021 Incision/Procedure Start Time: 8:50 AM Incision Close/Procedure End Time: Surgeon(s) and Customer Advocacy Manager(s): Surgeon(s) and Role: Panel 1: * Mary [...] DATE: December 24, 2021 TIME: 12:10 PM [facility] NURSING PROGon 12-24-2021 NURSING PROG HNO ID: [id number] Author: Marilyn Henning RN Service: ? Author Type: Registered Nurse Type: Nursing Progress Note Filed: 12/24/2021 6:36 PM Note Text: Nursing Progress Note Patient Name: Mary Leal Patient Location: [place] [address]/[address] __ Daily Note: 1816 Pt arrived on floor with 100.2F temperature. Scheduled tylenol administered. Temperature 98.6 at 1816. Surgical incisions ELENI with glue, intact. Ostomy beefy red, producing sweat. Call remains in place. Pt Educated on TOOL TURRET LATHE SET UP OPERATOR pump usage. Daughter bedside. Bed low and locked. This note was completed by: Marilyn Henning [facility] NURSING PROG HNO ID: [id number] Author: Marilyn Henning RN Service: ? Author Type: Registered Nurse Type: Nursing Progress Note Filed: 12/24/2021 4:19 PM Note Text: Nursing Progress Note Patient Name: Mary Leal Patient Location: [place] [address]/JE1A-17 __ Transfer Note: Patient transferred into room/unit PK3-33 in stable condition. Actions taken: No futher actions taken at this time. Will continue to monitor and check with patient. This note was completed by: [facility]NO [facility]: [id number] Author: Dianelys Lopez RN Service: Nursing Author [...] (RECOMMENDATION): None Electronically Signed By: Dianelys Lopez [facility] OPERATIVE NOon 12-24-2021 OPERATIVE NO HNO ID: [id number] Author: Mary Obrien MD Service: Colorectal Author Type: Physician Type: Operative Report Filed: 12/24/2021 12:34 PM Note Text: COLON AND RECTAL SURGERY OPERATIVE REPORT PATIENT NAME: Mary Leal ADMISSION DATE: 12/24/2021 LOG ID: [id number] SURGERY/PROCEDURE DATE: 12/24/2021 INCISION/PROCEDURE START TIME: 8:50 AM INCISION CLOSE/PROCEDURE END TIME: AGE: [age] year old SEX: female SURGEON(S)/PROCEDURALI ST(S) AND AUTOMATIC I THREADING MACHINE FEEDER(S): Surgeon(s) and Role: Panel 1: * Mary [...] port site. This was ligated with a dgstrw-op-cmxhs Vicryl suture and was confirmed to be [...] above. Mary Obrien, (more content not included)... [facility] OPERATIVE NO HNO ID: [id number] Author: Pam Wang MD Service: Urogynecology Author Type: Physician Type: Operative Report Filed: 12/28/2021 10:03 AM Note Text: OPERATIVE/PROCEDURE REPORT LOG ID: [id number] SURGERY/PROCEDURE DATE: 12/24/2021 INCISION/PROCEDURE START TIME: 8:50 AM INCISION CLOSE/PROCEDURE END TIME: 1:50 PM SURGEON(S)/PROCEDURALI ST(S) AND AUTOMATIC I THREADING MACHINE FEEDER(S): Surgeon(s) and Role: Panel 1: * Mary [...] of the (more content not included)... Normal [facility] Type and SCR (30D)on ABO/RH(D) Positive [facility] Comment on above: Performed By: #### T SCR30 ####[place] [id number] [place], [place] [phone] Confirm Blood Typeon ABO/RH(D) Positive [facility] Comment on above: Performed By: #### C ONABO ####[facility] [place], [place] [phone] Type and SCR (30D)on ABO/RH(D) Positive [facility] Comment on above: Performed By: #### T SCR30 ####[address] [phone] Nonvisit Note - PTon 09-01-2 021 Nonvisit Note - PT Chart reviewed with eval prepped for scheduled eval. KK [facility] Consenton 01-08-2021 Consent [id number]#1. 00CD:127 [facility] Coding Summary.on 01-06-2021 Coding Summary. CODING DATE: 01/06/2021 FINAL [facility] STATUS: Home (Routine DC) PAYOR: Medicaid [...] Eileen Scott Date Saved: 01/06/2021 09:01 am [facility] Consent for Procedure/Surger yon 01-04-2021 Consent for Procedure/Surgery [id number]#1. 00CD:127 [facility] Consent for Procedure/Surgery [id number]#1. 00CD:127 [facility] Consent for Treatmenton Consent for Treatment [id number]#1.0 0CD:127 [facility] Discharge Instructionson Discharge Instructions [id number]#1. 00CD:127 [facility] Inpatient Patient Summaryon 01-04-2021 Inpatient Patient Summary [address] [address] Clinical Summary Person Information Name: MARY LEAL Age: 50 Years : 1970 Sex: Female PCP: Isatu GÓMEZ DO Marital Status: Race: White Ethnicity: Non- or Language: Indonesian Visit Id: Visit Reason: MIXED INCONTINENCE Speciality: Acuity: Enc Type: Outpatient Med Service: Surgery Arrival: 01/04/2021 12:31:00 Discharge: Dispo Type: Address: [address] [place] [id number] Provider Notes: Diagnosis: Problems Active Decreased bladder [...] This Visit Final Med List: acetaminophen-hydrocod one ([place] 5/325 Tab) By Mouth every 6 hours. [...] up: With: Address: When: Clifford OCONNOR [address], [address], [place] [id number] Business (1) Within 2 weeks Comments: Call for followup appointment. Have a great day! Patient Education Information: EU - Cystoscopy with Botox Injection Discharge Instructions (Custom) [facility] IntraOperative Documentson 0 01-04-2021 IntraOperative Documents [id number]#1. 00CD:127 Normal [facility] IntraOperative Documents [id number]#1. 00CD:127 [facility] Main OR Intraoperative Recor don 01-04-2021 Main OR Intraoperative Record IntraOp Document Type FTURO Summary Primary Physician: Clifford OCONNOR MD Finalized Date/Time: 01/04/21 13:27:05 Pt. Name: MARY LEAL/Sex: 1970 Female Med Rec #: [id number] Physician: Clifford OCONNOR MD Financial #: [id number] Pt. Type: O Room/Bed: / Admit/Disch: 01/04/21 12:31:00 - Institution: Case Times FTURO Entry 1 Patient Times In Room 01/04/21 13:07:00 Out Room 01/04/21 13:27:00 Procedure Times Start 01/04/21 13:19:00 Stop 01/04/21 13:23:00 Anesthesia Times Last Modified By: Niecy Tran RN 01/04/21 13:27:01 Case Attendance FTURO Entry 1 Entry 2 Entry 3 Case Attendee Clifford OCONNOR MD AGING DEPARTMENT SUPERVISOR, Akin Mejias CST, Debi Chand Role Performed [...] Case Attendee Niecy Tran RN Role Performed Arc Welder Apprentice - Primary Time In 01/04/21 13:07:00 Time Out 01/04/21 13:27:00 Procedure CYSTOSCOPY LOCAL BOTOX INJECTION(.) Comments Last Modified By: Niecy Tran RN 01/04/21 13:27:02 Surgical Procedures FTURO Entry 1 Procedure Description Procedure CYSTOSCOPY LOCAL BOTOX Modifiers . INJECTION Surgeon Description CYSTOSCOPY BOTOX 50 UNITS LOT NUMBER [id number] EXP DATE 08/2023 Primary Procedure Yes Primary [...] Niecy Tran RN Document Signatures Signed By: Nieyc Tran RN 01/04/21 13:27 Normal [facility] Main OR Preoperative Recordo n 01-04-2021 Main OR Preoperative Record Holding Area Document Type FTURO Summary Primary Physician: Clifford OCONNOR MD Finalized Date/Time: 01/04/21 13:05:55 Pt. Name: ELVISMARY /Sex: 1970 Female Med Rec #: [id number] Physician: Clifford OCONNOR MD Financial #: [id number] Pt. Type: O Room/Bed: / Admit/Disch: 01/04/21 [...] 12:46 Niecy Tran RN 01/04/21 13:05 Normal [facility] Operative Reporton Operative Report Patient: MARY ELAL Age: 50 years Sex: Female : 1970 [...] arranged, F/U in two weeks. . Normal [facility] Comment on above: Result Comment: Elec tronically Signed By: Clifford OCONNOR MD\.br\Date and Time Signed: 01/04/21 13:30 EST Outpatient Surgery Discharge Instructionon 01-04-2021 Outpatient Surgery Discharge Instruction [address] [address] Patient Discharge Instructions PERSON INFORMATION [...] Follow up: With: Address: When: Clifford OCONNOR [address] [place] [address], [address], [address] [address] Business (1) Within 2 weeks [...] Date You may receive a survey from [employer] asking you to rate your care experience. Your feedback is important and will help us understand what we do well and how we can improve the quality of care we provide to you, your loved ones and our community. It?s an honor to serve you. Thank you for choosing [facility] Normal [facility] XR Shoulder - right 3 Viewso n 12-25-2020 IMPRESSION: NO SIGNIFICANT CHANGE Public Policy Manager: CAPRI Transcribe Date/Time: Dec 25 2020 12:18P [...] abnormality. - IMPRESSION IMPRESSION: NO SIGNIFICANT CHANGE Public Policy Manager: CAPRI Transcribe Date/Time: Dec 25 2020 12:18P Dictated by : AWA LOPEZ MD This examination was interpreted and the report reviewed and electronically signed by: AWA LOPEZ MD on Dec 25 2020 12:21PM EST [facility] Radiology Study observation (narrative) [facility] XR Shoulder - right 3 ViewsO rdered By: [facility]cf Provider on 12-25-2020 [facility] PT - Assessmentson 1 PT - Assessments [id number]#1. 00CD:127 Normal [facility] Ambulatory Clinical Summaryo n 11-11-2020 Ambulatory Clinical Summary {[id number]}CD:[id number] Normal [facility] Patient Educationon 11-11-19 21 Patient Education [...] your urinary (more content not included)... Normal [facility] Urology Phone Visit- [facility] 11-03-2020 Urology Phone Visit- Telehealth HPI Staff [...] only communication with the patient located at [facility] [phone] , with no one else. If it [...] Information Dawna Marmolejo MD [address] [place] [address]- [phone] Additional Instructions: Patient Education Urodynamic Testing Overactive [...] urine stream His (more content not included)... [facility] Comment on above: Result Comment: Elec tronically Signed By: Francie BENSON, Dawna Feldman\.br\Date and Time Signed: 11/03/20 11:59 EST\.br\Electronically Co-Signed By: Christy Gill MA\.br\Date and Time Co-Signed: 10/21/20 12:01 EST Coding Summary.on 10-28-2020 Coding Summary. CODING DATE: 10/28/2020 FINAL [facility] STATUS: Home (Routine DC) PAYOR: Medicaid EAPG [...] Eileen Scott Date Saved: 10/28/2020 11:17 am [facility] Ambulatory Clinical Summaryo n 10-27-2020 Ambulatory Clinical Summary {[id number]}CD:[id number] [facility] Consent for Procedure/Surger yon 10-27-2020 Consent for Procedure/Surgery [id number] .00CD:127 [facility] Consent for Treatmenton 12-2 2-2020 Consent for Treatment [id number] 0CD:127 Normal [facility] IntraOperative Documentson 1 12-28-2019 IntraOperative Documents [id number] .00CD:127 Normal [facility] Patient Educationon 10-21-20 Patient Education Family [...] or depar (more content not included)... Normal [facility] XR Shoulder - right 3 Viewso n 09-29-2020 IMPRESSION: No acute osseous findings. Public Policy Manager: CAPRI Transcribe Date/Time: Sep 29 2020 8:37A [...] abnormality. IMPRESSION IMPRESSION: No acute osseous findings. Public Policy Manager: PSCB Transcribe Date/Time: Sep 29 2020 8:37A Dictated by : FLORENCE TORRES MD This examination was interpreted and the report reviewed and electronically signed by: FLORENCE TORRES MD on Sep 29 2020 8:38AM EST [facility] Radiology Study observation (narrative) [facility] XR Shoulder - right 3 ViewsO rdered By: Ccf Provider on 09-29-2020 [facility] PT - Assessmentson 0 PT - Assessments [id number]. 00CD:127 Normal [facility] Nonvisit Note - PTon 020 Nonvisit Note - PT Per voicemail: she needs to cancel all of her PT due to personal reasons. KK Normal [facility] Provider Letteron 09-09-2020 Provider Letter September 09, 2020 MARY LEAL [address] [place] [address] MARY LEAL 1970 Dear Mary Leal, You [...] [facility] [address], [place] [address] [facility] PT - Assessmentson 0 PT - Assessments [id number]. 00CD:127 [facility] PT - Assessments [id number]. 00CD:127 [facility] PT - Assessmentson 0 PT - Assessments [id number]. 00CD:127 [facility] PT - Consentson 08-31-2020 PT - Consents [id number]. 00CD:127 [facility] Pre-Certification Formon Pre-Certification Form [id number] 0CD:127 [facility] Pre-Certification Form [id number] 0CD:127 [facility] Consent for Procedure/Surger yon 08-26-2020 Consent for Procedure/Surgery [id number] 0CD:127 [facility] Ambulatory Clinical Summaryo n 08-25-2020 Ambulatory Clinical Summary {[id number] d-}CD:[id number] [facility] Patient Educationon 08-25-20 Patient Education Family [...] an extended amount of time. Only take zaoz-gne-lnfqnoo or prescription medicines for pain, discomfort, or [...] Document Reviewed: 09/07/2009 ExitCare? Patient Information ?2013 [employer]. [facility] Urology Office/Clinic Noteon 08-25-2020 Urology Office/Clinic [...] disease: Mother. Hypertension: Mother and Father. Normal [facility] Comment on above: Result Comment: Elec tronically Signed By: Mulligan Dawna BENSON\.br\Date and Time Signed: 08/25/20 10:06 EDT\.br\Electronically Co-Signed By: Mary Hager\.br\Date and Time Co-Signed: 08/25/20 09:51 EDT Coding Summary.on 08-21-2020 Coding Summary. CODING DATE: 08/21/2020 FINAL [facility] STATUS: PAYOR: Medicaid EA DESCRIPTION [id number] PHYSICAL [...] Raymond CphT Date Saved: 08/21/2020 10:42 am [facility] Consenton 08-21-2020 Consent [id number] 0CD:127 [facility] Ambulatory Clinical Summaryo n 08-19-2020 Ambulatory Clinical Summary {[id number]}CD:[id number] [facility] Ambulatory Clinical Summary {[id number] d-[id number]}CD:[id number] [facility] Nonvisit Note - PTon 020 Nonvisit Note - PT Chart reviewed for scheduled eval. KK [facility] Patient Educationon 08-19-20 20 Patient [...] your urinary (more content not included)... Normal [facility] Urology Phone Visit- [facility] 08-19-2020 Urology Phone Visit- Telehealth [...] only communication with the patient located at [facility] [phone], with no one else. If it is [...] questions/concerns were discussed. Pt. acknowledges understanding. Ordered: [facility] External Ambulatory Referral Urology Procedure Order 2. Dysuria (R30.0: Dysuria) Moderate. Ordered: [facility] External Ambulatory Referral Urology Procedure Order 3. Feeling of incomplete bladder emptying (R39.14: Feeling of incomplete bladder emptying) Pt. does not feel that she is emptying. Ordered: [facility] External Ambulatory Referral Urology Procedure Order 4. Weak urine stream (R39.12: Poor urinary stream) Weak stream w/ moderate hesitancy. Ordered: [facility] External Ambulatory Referral Urology Procedure Order 5. [...] Will order Local anesthesia. [facility]X sent to [facility] in [place]. Ordered: [facility] External Ambulatory Referral Urology Procedure Order 6. [...] changes. Patient who (more content not included)... [facility] Comment on above: Result Comment: Elec tronically Signed By: Dawna Marmolejo MD\.br\Date and Time Signed: 08/19/20 08:53 EDT\.br\Electronically Co-Signed By: Christy Gill MA\.br\Date and Time Co-Signed: 08/19/20 08:44 EDT Coding Summary.on 08-12-2020 Coding Summary. CODING DATE: 08/12/2020 FINAL [facility] STATUS: Home (Routine DC) PAYOR: Medicaid EA [...] Demi Fried Date Saved: 08/12/2020 09:42 am [facility] Formson 08-11-2020 Forms [id number] 0CD:127 [facility] C Urineon 08-09-2020 Bacteria identified Cx Nom (U) Microbiology PROCEDURE: Urine Culture [R1] SOURCE: U Random BODY SITE: COLLECTED DATE/TIME: 08/07/2020 15:46 EDT RECEIVED DATE/TIME: 08/07/2020 17:10 EDT START DATE/TIME: 08/07/2020 17:10 EDT FREE TEXT SOURCE: Dawna Marmolejo MD. Dawna Marmolejo MD FINAL REPORTS Final Report [] Verified Date/Time: 08/09/2020 11:56 EDT 500 cfu/ml Mixed skin contaminants Performing Locations R1: This test was performed at: [facility], [address] [place] [address], [id number] [place] [address], Normal [facility] Comment on above: Performed By: #### [id number] ####[facility] [address] [facility] [place] [address] Ambulatory Clinical Summaryo n 08-07-2020 Ambulatory Clinical Summary {[id number]}CD:[id number] Normal [facility] Patient Educationon 08-07-20 [...] Document Reviewed: 07/18/2013 ExitCare? Patient Information ?2013 [facility] Medicine Overactive Bladder, Adult The bladder [...] bladder, your (more content not included)... Normal [facility] Urology Office/Clinic Noteon 08-07-2020 Urology Office/Clinic [...] information and history for this patient from MACHINE PACKAGE SEALER KWESI King There have been no associated [...] setting of nocturia q2hrs and daytime frequency x2sulij with painful post void bladder sensation of [...] [address] (more content not included)... Normal [facility] Comment on above: Result Comment: Elec tronically Signed By: Dawna Marmolejo MD\.br\Date and Time Signed: 08/07/20 15:54 EDT\.br\Electronically Co-Signed By: Radha Lopez MA.br\Date and Time Co-Signed: 08/07/20 15:44 EDT Vital Signs Date Time Vital Sign Value Performing Clinician Facility 06-24-2025 08:57-0400 Body height 162.6 cm Ditpi Acevedo DO Work Phone: [facility] 06-24-2025 08:57-0400 Body mass index (BMI) [Ratio] 28.32 kg/m2 Dipti Acevedo DO Work Phone: [facility] 06-24-2025 08:57-0400 Body weight 74.84 kg Dipti Acevedo DO Work Phone: [facility] 06-24-2025 08:57-0400 Diastolic blood pressure 78 mm[Hg] Dipti Acevedo DO Work Phone: [facility] 06-24-2025 08:57-0400 Systolic blood pressure 126 mm[Hg] Dipti Acevedo DO Work Phone: [facility] 06-06-2025 14:19-0400 Body height 162.6 cm Nancy Swenson PA Work Phone: [facility] 06-06-2025 14:19-0400 Body mass index (BMI) [Ratio] 27.12 kg/m2 Nancy Swenson PA Work Phone: [facility] 06-06-2025 14:19-0400 Body temperature 98.2 [degF] Nancy Swenson PA Work Phone: [facility] 06-06-2025 14:19-0400 Body weight 71.67 kg Nancy Swenson PA Work Phone: [facility] 06-06-2025 14:19-0400 Diastolic blood pressure 64 mm[Hg] Nancy Swenson PA Work Phone: [facility] 06-06-2025 14:19-0400 Heart rate 79 /min Nancy Swenson PA Work Phone: [facility] 06-06-2025 14:19-0400 SaO2% (BldA) [Mass fraction] 96 % Nancy Swenson PA Work Phone: [facility] 06-06-2025 14:19-0400 Systolic blood pressure 120 mm[Hg] Nancy Swenson PA Work Phone: [facility] 06-06-2025 09:04-0400 Body height 162.6 cm Alberto Solis MD Work Phone: [facility] 06-06-2025 09:04-0400 Body mass index (BMI) [Ratio] 28.67 kg/m2 Alberto Solis MD Work Phone: [facility] 06-06-2025 09:04-0400 Body weight 75.75 kg Alberto Solis MD Work Phone: [facility] 06-06-2025 09:04-0400 Diastolic blood pressure 70 mm[Hg] Alberto Solis MD Work Phone: [facility] 06-06-2025 09:04-0400 Systolic blood pressure 117 mm[Hg] Alberto Solis MD Work Phone: [facility] 11-12-2024 08:27-0500 Body mass index (BMI) [Ratio] 26.61 kg/m2 Dipti Acevedo DO Work Phone: [facility] 11-12-2024 08:27-0500 Body weight 70.31 kg Dipti Acevedo DO Work Phone: [facility] 11-12-2024 08:27-0500 Diastolic blood pressure 84 mm[Hg] Dipti Acevedo DO Work Phone: [facility] 11-12-2024 08:27-0500 Systolic blood pressure 122 mm[Hg] Dipti Acevedo DO Work Phone: [facility] 10-24-2024 09:20-0500 Diastolic blood pressure 70 mm[Hg] Shannon Szymanskileigha DO Work Phone: [facility] 10-24-2024 09:20-0500 Heart rate 68 /min Shannon Szymanskileigha DO Work Phone: [facility] 10-24-2024 09:20-0500 Respiratory rate 16 /min Shannon Szymanskileigha DO Work Phone: [facility] 10-24-2024 09:20-0500 SaO2% (BldA) [Mass fraction] 100 % Shannon Szymanskileigha DO Work Phone: [facility] 10-24-2024 09:20-0500 Systolic blood pressure 109 mm[Hg] Shannon Lugo Dalia DO Work Phone: [facility] 10-24-2024 08:30-0500 Body temperature 98 [degF] Shannon Gómez DO Work Phone: [facility] 10-24-2024 08:03-0500 Inhaled oxygen flow rate 8 L/min Shannon Gómez DO Work Phone: [facility] 10-24-2024 06:36-0500 Body height 162.56 cm Shannon Gómez DO Work Phone: [facility] 10-24-2024 06:36-0500 Body weight 69.39 kg Shannon Gómez DO Work Phone: [facility] 10-23-2024 10:43-0500 Body height 162.6 cm Radha Cardenas MD Work Phone: [facility] 10-23-2024 10:43-0500 Body mass index (BMI) [Ratio] 26.26 kg/m2 Radha Cardenas MD Work Phone: [facility] 10-23-2024 10:43-0500 Body weight 69.4 kg Radha Cardenas MD Work Phone: [facility] 10-23-2024 10:43-0500 Diastolic blood pressure 80 mm[Hg] Radha Cardenas MD Work Phone: [facility] 10-23-2024 10:43-0500 Heart rate 68 /min Radha Cardenas MD Work Phone: [facility] 10-23-2024 10:43-0500 SaO2% (BldA) [Mass fraction] 98 % Radha Cardenas MD Work Phone: [facility] 10-23-2024 10:43-0500 Systolic blood pressure 112 mm[Hg] Radha Cardenas MD Work Phone: [facility] 10-15-2024 15:04-0500 Body mass index (BMI) [Ratio] 26.61 kg/m2 Dipti Acevedo DO Work Phone: [facility] 10-15-2024 15:04-0500 Body weight 70.31 kg Dipti Acevedo DO Work Phone: [facility] 10-15-2024 15:04-0500 Diastolic blood pressure 68 mm[Hg] Dipti Acevedo DO Work Phone: [facility] 10-15-2024 15:04-0500 Systolic blood pressure 108 mm[Hg] Dipti Acevedo DO Work Phone: [facility] 10-14-2024 08:26-0500 Body height 162.56 cm G. Parish Gómez DO Work Phone: [facility] 10-14-2024 08:26-0500 Body mass index (BMI) [Ratio] 26.2 kg/m2 GReno Gómez DO Work Phone: [facility] 10-14-2024 08:26-0500 Body weight 69.39 kg G. Parish Gómez DO Work Phone: [facility] 09-26-2024 16:19-0500 Body height 162.6 cm Ron King MARKETING PROJECT SPECIALIST Work Phone: [facility] 09-26-2024 16:19-0500 Body mass index (BMI) [Ratio] 26.64 kg/m2 Ron King MARKETING PROJECT SPECIALIST Work Phone: [facility] 09-26-2024 16:19-0500 Body temperature 97.5 [degF] Ron King MARKETING PROJECT SPECIALIST Work Phone: [facility] 09-26-2024 16:19-0500 Body weight 70.4 kg Ron King MARKETING PROJECT SPECIALIST Work Phone: [facility] 09-26-2024 16:19-0500 Diastolic blood pressure 90 mm[Hg] Ron King MARKETING PROJECT SPECIALIST Work Phone: [facility] 09-26-2024 16:19-0500 Heart rate 85 /min Ron King MARKETING PROJECT SPECIALIST Work Phone: [facility] 09-26-2024 16:19-0500 SaO2% (BldA) [Mass fraction] 99 % Ron Luby MARKETING PROJECT SPECIALIST Work Phone: [facility] 09-26-2024 16:19-0500 Systolic blood pressure 142 mm[Hg] oRn Benedicty MARKETING PROJECT SPECIALIST Work Phone: [facility] 09-16-2024 14:56-0500 Body height 162.56 cm [facility] 09-16-2024 14:56-0500 Body mass index (BMI) [Ratio] 25.5 kg/m2 [facility] 09-16-2024 14:56-0500 Body weight 67.58 kg [facility] 09-04-2024 14:30-0400 Body height 162.6 cm Ron Benedicty MARKETING PROJECT SPECIALIST Work Phone: [facility] 09-04-2024 14:30-0400 Body mass index (BMI) [Ratio] 25.58 kg/m2 Ronpadmaja Benedicty MARKETING PROJECT SPECIALIST Work Phone: [facility] 09-04-2024 14:30-0400 Body temperature 97.5 [degF] Ron Benedicty MARKETING PROJECT SPECIALIST Work Phone: [facility] 09-04-2024 14:30-0400 Body weight 67.59 kg Ron Luby MARKETING PROJECT SPECIALIST Work Phone: [facility] 09-04-2024 14:30-0400 Diastolic blood pressure 76 mm[Hg] Ron Benedicty MARKETING PROJECT SPECIALIST Work Phone: [facility] 09-04-2024 14:30-0400 Heart rate 55 /min Ron Benedicty MARKETING PROJECT SPECIALIST Work Phone: [facility] 09-04-2024 14:30-0400 SaO2% (BldA) [Mass fraction] 99 % Ron Luby MARKETING PROJECT SPECIALIST Work Phone: [facility] 09-04-2024 14:30-0400 Systolic blood pressure 110 mm[Hg] Ron Luby MARKETING PROJECT SPECIALIST Work Phone: [facility] 08-07-2024 09:12-0400 Body height 162.6 cm Radha Cardenas MD Work Phone: [facility] 08-07-2024 09:12-0400 Body mass index (BMI) [Ratio] 26.43 kg/m2 Radha Cardenas MD Work Phone: [facility] 08-07-2024 09:12-0400 Body temperature 97.3 [degF] Radha Cardenas MD Work Phone: [facility] 08-07-2024 09:12-0400 Body weight 69.85 kg Radha Cardenas MD Work Phone: [phone] 08-07-2024 09:12-0400 Diastolic blood pressure 82 mm[Hg] Radha Cardenas MD Work Phone: [facility] 08-07-2024 09:12-0400 Heart rate 68 /min Radha Cardenas MD Work Phone: [facility] 08-07-2024 09:12-0400 SaO2% (BldA) [Mass fraction] 100 % Radha Cardenas MD Work Phone: [facility] 08-07-2024 09:12-0400 Systolic blood pressure 120 mm[Hg] Radha Cardenas MD Work Phone: [facility] 08-01-2024 15:22-0400 Body height 162.6 cm Eliceo Stephnoleigha LOAIZA Work Phone: [facility] 08-01-2024 15:22-0400 Body mass index (BMI) [Ratio] 25.73 kg/m2 Eliceo Stephonleigha LOAIZA Work Phone: [facility] 08-01-2024 15:22-0400 Body temperature 96.8 [degF] Eliceo Gómez DO Work Phone: [facility] 08-01-2024 15:22-0400 Body weight 68 kg Eliceo Gómez DO Work Phone: [facility] 08-01-2024 15:22-0400 Diastolic blood pressure 60 mm[Hg] Eliceo Gómez DO Work Phone: [facility] 08-01-2024 15:22-0400 Heart rate 98 /min Eliceo Gómez DO Work Phone: [facility] 08-01-2024 15:22-0400 SaO2% (BldA) [Mass fraction] 99 % Eliceo Gómez DO Work Phone: [facility] 08-01-2024 15:22-0400 Systolic blood pressure 122 mm[Hg] Eliceo Gómez DO Work Phone: [facility] 07-11-2024 09:44-0400 Body height 162.6 cm Eliceo Gómez DO Work Phone: [facility] 07-11-2024 09:44-0400 Body mass index (BMI) [Ratio] 26.09 kg/m2 Eliceo Gómez DO Work Phone: [facility] 07-11-2024 09:44-0400 Body temperature 97.11 [degF] Eliceo Gómez DO Work Phone: [facility] 07-11-2024 09:44-0400 Body weight 68.95 kg Eliceo Gómez DO Work Phone: [facility] 07-11-2024 09:44-0400 Diastolic blood pressure 64 mm[Hg] Eliceo Gómez DO Work Phone: [facility] 07-11-2024 09:44-0400 Heart rate 86 /min Eliceo Gómez DO Work Phone: [facility] 07-11-2024 09:44-0400 SaO2% (BldA) [Mass fraction] 97 % Eliceo Gómez DO Work Phone: [facility] 07-11-2024 09:44-0400 Systolic blood pressure 108 mm[Hg] Eliceo Gómez DO Work Phone: [facility] 04-12-2024 13:10-0400 Diastolic blood pressure 75 mm[Hg] Milagros Franco MD, PhD Work Phone: [facility] 04-12-2024 13:10-0400 Heart rate 62 /min Milagros Franco MD, PhD Work Phone: [facility] 04-12-2024 13:10-0400 Respiratory rate 20 /min Milagros Franco MD, PhD Work Phone: [facility] 04-12-2024 13:10-0400 SaO2% (BldA) [Mass fraction] 100 % Milagros Franco MD, PhD Work Phone: [facility] 04-12-2024 13:10-0400 Systolic blood pressure 121 mm[Hg] Milagros Franco MD, PhD Work Phone: [facility] 04-12-2024 11:35-0400 Body height 162.6 cm Milagros Franco MD, PhD Work Phone: [facility] 04-12-2024 11:35-0400 Body mass index (BMI) [Ratio] 25.75 kg/m2 Milagros Franco MD, PhD Work Phone: [facility] 04-12-2024 11:35-0400 Body temperature 97.9 [degF] Milagros Franco MD, PhD Work Phone: [facility] 04-12-2024 11:35-0400 Body weight 68.04 kg Milagros Franco MD, PhD Work Phone: [facility] 02-27-2024 09:48-0400 Body height 162.6 cm Flower Lopez MACHINE PACKAGE SEALER.AIR TUCKER Work Phone: [facility] 02-27-2024 09:48-0400 Body mass index (BMI) [Ratio] 26.45 kg/m2 Flower Lopez MACHINE PACKAGE SEALER.AIR TUCKER Work Phone: [facility] 02-27-2024 09:48-0400 Body weight 69.9 kg Flower Lopez MACHINE PACKAGE SEALER.AIR TUCKER Work Phone: [facility] 02-27-2024 09:48-0400 Diastolic blood pressure 93 mm[Hg] Flower Payam MACHINE PACKAGE SEALER.AIR TUCKER Work Phone: [facility] 02-27-2024 09:48-0400 Heart rate 62 /min Flower Payam MACHINE PACKAGE SEALER.AIR TUCKER Work Phone: [facility] 02-27-2024 09:48-0400 Systolic blood pressure 146 mm[Hg] Flower Payam MACHINE PACKAGE SEALER.AIR TUCKER Work Phone: [facility] 01-25-2024 09:05-0400 Body height 162.6 cm [employer] Work Phone: [facility] 01-25-2024 09:05-0400 Body weight 68.04 kg [employer] Work Phone: [facility] 01-25-2024 09:05-0400 Heart rate 84 /min [employer] Work Phone: [facility] 01-25-2024 09:05-0400 Respiratory rate 16 /min [employer] Work Phone: [facility] 01-10-2024 12:40-0500 Body height 162.6 cm Cullen Dawkins MD Work Phone: [facility] 01-10-2024 12:40-0500 Body mass index (BMI) [Ratio] 27.89 kg/m2 Cullen Dawkins MD Work Phone: [facility] 01-10-2024 12:40-0500 Body weight 73.7 kg Cullen Dawkins MD Work Phone: [facility] 12-20-2023 12:21-0500 Body height 162.6 cm [facility] 12-20-2023 12:21-0500 Body mass index (BMI) [Ratio] 28.38 kg/m2 [facility] [employer] [facility] 12-20-2023 12:21-0500 Body temperature 98.2 [degF] [facility] 12-20-2023 12:21-0500 Body weight 75 kg [facility] 12-20-2023 12:21-0500 Diastolic blood pressure 90 mm[Hg] [facility] 12-20-2023 12:21-0500 Heart rate 72 /min [facility] 12-20-2023 12:21-0500 Respiratory rate 18 /min [facility] 12-20-2023 12:21-0500 SaO2% (BldA) [Mass fraction] 96 % [facility] 12-20-2023 12:21-0500 Systolic blood pressure 138 mm[Hg] [facility] 11-23-2023 08:14-0500 Body height 162.56 cm DO Shannon Gómez Work Phone: [facility] 11-23-2023 08:14-0500 Body weight 70.3 kg DO Shannon Gómez Work Phone: [facility] 08-12-2023 07:08-0400 Diastolic blood pressure 65 mm[Hg] Lex Salmon MD Work Phone: [facility] 08-12-2023 07:08-0400 Heart rate 77 /min Lex Salmon MD Work Phone: [facility] 08-12-2023 07:08-0400 SaO2% (BldA) [Mass fraction] 98 % Lex Salmon MD Work Phone: [facility] 08-12-2023 07:08-0400 Systolic blood pressure 132 mm[Hg] Lex Salmon MD Work Phone: [facility] 08-12-2023 06:48-0400 Respiratory rate 13 /min Lex Salmon MD Work Phone: [facility] 08-12-2023 00:25-0400 Body height 162.6 cm Lex Salmon MD Work Phone: [facility] 08-12-2023 00:25-0400 Body mass index (BMI) [Ratio] 28.01 kg/m2 Lex Salmon MD Work Phone: [facility] 08-12-2023 00:25-0400 Body temperature 97.59 [degF] Lex Salmon MD Work Phone: [facility] 08-12-2023 00:25-0400 Body weight 74.03 kg Lex Salmon MD Work Phone: [facility] 07-31-2023 14:27-0400 Body height 162.6 cm Nelsy Philipped MACHINE PACKAGE SEALER.AIR TUCKER Work Phone: [facility] 07-31-2023 14:27-0400 Body weight 69.85 kg Nelsygregory Ph[employer] MACHINE PACKAGE SEALER.AIR TUCKER Work Phone: [facility] 07-31-2023 14:27-0400 Diastolic blood pressure 96 mm[Hg] Nelsy Philipped MACHINE PACKAGE SEALER.AIR TUCKER Work Phone: [facility] 07-31-2023 14:27-0400 Heart rate 76 /min Nelsy Philipped MACHINE PACKAGE SEALER.AIR TUCKER Work Phone: [facility] 07-31-2023 14:27-0400 Systolic blood pressure 136 mm[Hg] Nelsy Wynnegand MACHINE PACKAGE SEALER.AIR TUCKER Work Phone: [facility] 06-13-2023 10:37-0400 Body height 162.56 cm Eliceo Gómez Work Phone: [facility] [address] DO Work Phone: 06-13-2023 10:37-0400 Body mass index (BMI) [Ratio] 27.46 kg/m2 Eliceo Gómez Work Phone: [facility] [facility] DO Work Phone: 06-13-2023 10:37-0400 Body surface area Derived from formula 1.78 m2 Eliceo Gómez Work Phone: Formerly [facility] DO Work Phone: 06-13-2023 10:37-0400 Body weight 72.58 kg Eliceo Gómez Work Phone: [facility] DO Work Phone: 06-13-2023 10:37-0400 Diastolic blood pressure 70 mm[Hg] Eliceo Gómez Work Phone: [facility] DO Work Phone: 06-13-2023 10:37-0400 Heart rate 70 /min Eliceo Gómez Work Phone: [facility] DO Work Phone: 06-13-2023 10:37-0400 Systolic blood pressure 100 mm[Hg] Eliceo Gómez Work Phone: [facility] DO Work Phone: 06-13-2023 10:37-0400 11 1 Eliceo Gómez Work Phone: [facility] DO Work Phone: Comment on above: PHQ-9 TS 06-05-2023 13:23-0400 Diastolic blood pressure 68 mm[Hg] DO IsatuReno Szymanskibijutomasa Work Phone: [facility] 06-05-2023 13:23-0400 Heart rate 72 /min DO IsatuReno Szymanskileigha Work Phone: [facility] 06-05-2023 13:23-0400 Respiratory rate 18 /min DO IsatuReno Szymanskileigha Work Phone: [facility] 06-05-2023 13:23-0400 SaO2% (BldA) [Mass fraction] 97 % DO IsatuReno Parish Stephonleigha Work Phone: [facility] 06-05-2023 13:23-0400 Systolic blood pressure 129 mm[Hg] DO IsatuReno Parish Gómez Work Phone: [facility] 06-05-2023 09:32-0400 Body height 162.56 cm DO Shannon Gómez Work Phone: [facility] 06-05-2023 09:32-0400 Body weight 73.9 kg DO Shannon Gómez Work Phone: [facility] 06-05-2023 09:31-0400 Body temperature 97.5 [degF] DO Shannon Gómez Work Phone: [facility] 01-16-2023 13:18-0400 Body height 162.6 cm [facility] 01-16-2023 13:18-0400 Body weight 68.04 kg [facility] 11-21-2022 08:00-0500 Body height 162.6 cm [facility] 2 Work Phone: [facility] 11-21-2022 08:00-0500 Body weight 64.86 kg [facility] 2 Work Phone: [facility] 10-11-2022 10:08-0500 Body height 162.6 cm Isra Masters DO Work Phone: [facility] 10-11-2022 10:08-0500 Body weight 78.02 kg Isra Galarzae DO Work Phone: [facility] 10-11-2022 10:08-0500 Diastolic blood pressure 97 mm[Hg] Isra Masters DO Work Phone: [facility] 10-11-2022 10:08-0500 Heart rate 89 /min Isra Masters DO Work Phone: [facility] 10-11-2022 10:08-0500 Systolic blood pressure 141 mm[Hg] Isra Masters DO Work Phone: [facility] 10-10-2022 14:30-0500 Body height 162.56 cm Beto Cartagena Other [employer] Other 10-10-2022 14:30-0500 Body mass index (BMI) [Ratio] 28.66 kg/m2 Beto Cartagena Other [employer] Other 10-10-2022 14:30-0500 Body weight 75.75 kg Beto Cartagena Other [employer] Other 07-26-2022 11:13-0400 Body height 162.6 cm Mary Obrien MD Work Phone: [facility] 07-26-2022 11:13-0400 Body temperature 97.5 [degF] Mary Obrien MD Work Phone: [facility] 07-26-2022 11:13-0400 Body weight 77.56 kg Mary Obrien MD Work Phone: [facility] 07-26-2022 11:13-0400 Diastolic blood pressure 83 mm[Hg] Mary Obrien MD Work Phone: [facility] 07-26-2022 11:13-0400 Heart rate 95 /min Mary Obrien MD Work Phone: [facility] 07-26-2022 11:13-0400 SaO2% (BldA) [Mass fraction] 97 % Mary Obrien MD Work Phone: [facility] 07-26-2022 11:13-0400 Systolic blood pressure 110 mm[Hg] Mary Obrien MD Work Phone: [facility] 05-26-2022 11:45-0400 Body height 162.56 cm Beto Snyder Other [employer] Other 05-26-2022 11:45-0400 Body mass index (BMI) [Ratio] 29.18 kg/m2 Beto Snyder Other [employer] Other 05-26-2022 11:45-0400 Body weight 77.11 kg Beto Snyder Other [employer] Other 05-12-2022 09:06-0400 Diastolic blood pressure 80 mm[Hg] Eliceo Gómez Work Phone: [facility] DO Work Phone: 05-12-2022 09:06-0400 Systolic blood pressure 126 mm[Hg] Eliceo Gómez Work Phone: [facility] DO Work Phone: 05-12-2022 08:57-0400 Body height 162.56 cm Eliceo Gómez Work Phone: [facility] 250 DO Work Phone: 05-12-2022 08:57-0400 Body mass index (BMI) [Ratio] 29.87 kg/m2 Eliceo Gómez Work Phone: [facility] DO Work Phone: 05-12-2022 08:57-0400 Body surface area Derived from formula 1.84 m2 Eliceo Gómez Work Phone: [facility] DO Work Phone: 05-12-2022 08:57-0400 Body weight 78.93 kg Eliceo Gómez Work Phone: [facility] DO Work Phone: 05-12-2022 08:57-0400 Diastolic blood pressure 80 mm[Hg] Eliceo Gómez Work Phone: [facility] DO Work Phone: 05-12-2022 08:57-0400 Heart rate 68 /min Eliceo Szymanskileigha Work Phone: [facility] DO Work Phone: 05-12-2022 08:57-0400 Systolic blood pressure 130 mm[Hg] Eliceo Szymanskileigha Work Phone: [facility] DO Work Phone: 05-10-2022 12:30-0400 Body height 162.56 cm Allison Arita Other [employer] Other 05-10-2022 12:30-0400 Body mass index (BMI) [Ratio] 29.18 kg/m2 Allison Arita Other [employer] Other 05-10-2022 12:30-0400 Body temperature 97.3 [degF] Allison Arita Other [employer] Other 05-10-2022 12:30-0400 Body weight 77.11 kg Allison Arita Other [employer] Other 05-10-2022 12:30-0400 Respiratory rate 18 /min Allison Arita Other [employer] Other 05-10-2022 12:30-0400 SaO2% (BldA) [Mass fraction] 98 % Allison Arita Other [employer] Other 04-22-2022 12:04-0400 Body height 162.6 cm Jessi Sheets APRN.AIR TUCKER Work Phone: [facility] 04-22-2022 12:04-0400 Body weight 77.56 kg Jessi Sheets APRN.AIR TUCKER Work Phone: [facility] 04-22-2022 12:04-0400 Diastolic blood pressure 68 mm[Hg] Jessi Sheets APRN.AIR TUCKER Work Phone: [facility] 04-22-2022 12:04-0400 Heart rate 76 /min Jessi Sheets APRN.AIR TUCKER Work Phone: [facility] 04-22-2022 12:04-0400 SaO2% (BldA) [Mass fraction] 98 % Jessi Sheets APRN.AIR TUCKER Work Phone: [facility] 04-22-2022 12:04-0400 Systolic blood pressure 104 mm[Hg] Jessi Sheets APRN.AIR TUCKER Work Phone: [facility] 03-15-2022 16:30-0400 Body height 162.56 cm Beto Snyder Other [employer] Other 03-15-2022 16:30-0400 Body mass index (BMI) [Ratio] 30.55 kg/m2 Beto Snyder Other [employer] Other 03-15-2022 16:30-0400 Body weight 80.74 kg Beto Snyder Other [employer] Other 03-15-2022 08:36-0400 Body height 162.6 cm Isra Galarzae DO Work Phone: [facility] 03-15-2022 08:36-0400 Body weight 83.01 kg Isra Masters DO Work Phone: [facility] 03-15-2022 08:36-0400 Diastolic blood pressure 87 mm[Hg] Isra Masters DO Work Phone: [facility] 03-15-2022 08:36-0400 Heart rate 85 /min Isra Masters DO Work Phone: [facility] 03-15-2022 08:36-0400 SaO2% (BldA) [Mass fraction] 100 % Isra Masters DO Work Phone: [facility] 03-15-2022 08:36-0400 Systolic blood pressure 133 mm[Hg] Isra Masters DO Work Phone: [facility] 03-14-2022 10:23-0400 Body height 162.6 cm Pac 4 Work Phone: [facility] 03-14-2022 10:23-0400 Body temperature 97.2 [degF] Pac 4 Work Phone: [facility] 03-14-2022 10:23-0400 Body weight 83.01 kg Pacc 4 Work Phone: [facility] 03-14-2022 10:23-0400 Diastolic blood pressure 76 mm[Hg] Pacc 4 Work Phone: [facility] 03-14-2022 10:23-0400 Heart rate 74 /min Pacc 4 Work Phone: [facility] 03-14-2022 10:23-0400 Respiratory rate 16 /min Pacc 4 Work Phone: [facility] 03-14-2022 10:23-0400 SaO2% (BldA) [Mass fraction] 98 % Pacc 4 Work Phone: [facility] 03-14-2022 10:23-0400 Systolic blood pressure 114 mm[Hg] Pacc 4 Work Phone: [facility] 02-18-2022 09:43-0400 Body height 162.6 cm Nelsy Chávez MACHINE PACKAGE SEALER.AIR TUCKER Work Phone: [facility] 02-18-2022 09:43-0400 Body weight 80.29 kg Nelsy Chávez MACHINE PACKAGE SEALER.AIR TUCKER Work Phone: [facility] 02-18-2022 09:43-0400 Diastolic blood pressure 70 mm[Hg] Nelsy Chávez MACHINE PACKAGE SEALER.AIR TUCKER Work Phone: [facility] 02-18-2022 09:43-0400 Systolic blood pressure 110 mm[Hg] Nelsy Chávez MACHINE PACKAGE SEALER.AIR TUCKER Work Phone: [facility] 02-08-2022 14:52-0400 Body height 162.6 cm Mary Obrien MD Work Phone: [facility] 02-08-2022 14:52-0400 Body weight 83.01 kg Mary Obrien MD Work Phone: [facility] 04-05-2022 14:52-0400 Diastolic blood pressure 76 mm[Hg] Mary Obrien MD Work Phone: [facility] 02-08-2022 14:52-0400 Heart rate 79 /min Mary Obrien MD Work Phone: [facility] 02-08-2022 14:52-0400 SaO2% (BldA) [Mass fraction] 97 % Mary Obrien MD Work Phone: [facility] 02-08-2022 14:52-0400 Systolic blood pressure 113 mm[Hg] Mary Obrien MD Work Phone: [facility] 02-08-2022 11:19-0400 Body weight 83.01 kg Magali Mitchell MACHINE PACKAGE SEALER.AIR TUCKER Work Phone: [facility] 02-08-2022 11:19-0400 Diastolic blood pressure 76 mm[Hg] Magali Mitchell MACHINE PACKAGE SEALER.AIR TUCKER Work Phone: [facility] 02-08-2022 11:19-0400 Heart rate 74 /min Magali Mitchell MACHINE PACKAGE SEALER.AIR TUCKER Work Phone: [facility] 02-08-2022 11:19-0400 Systolic blood pressure 113 mm[Hg] Magali Mitchell MACHINE PACKAGE SEALER.AIR TUCKER Work Phone: [facility] 10-20-2021 09:45-0500 Body height 162.56 cm Beto Snyder Other [employer] Other 10-20-2021 09:45-0500 Body mass index (BMI) [Ratio] 31.41 kg/m2 Beto Snyder Other [employer] Other 10-20-2021 09:45-0500 Body weight 83.01 kg Beto Snyder Other [employer] Other 08-19-2021 17:10-0400 Body height 162.56 cm Erica Kingston Other [employer] Other 08-19-2021 17:10-0400 Body mass index (BMI) [Ratio] 31.24 kg/m2 Erica Kingston Other [employer] Other 08-19-2021 17:10-0400 Body temperature 97.3 [degF] Erica Kingston Other [employer] Other 08-19-2021 17:10-0400 Body weight 82.56 kg Erica Kingston Other [employer] Other 08-19-2021 17:10-0400 Diastolic blood pressure 82 mm[Hg] Erica Kingston Other [employer] Other 08-19-2021 17:10-0400 Respiratory rate 18 /min Erica Kingston Other [employer] Other 08-19-2021 17:10-0400 SaO2% (BldA) [Mass fraction] 98 % Erica Kingston Other [employer] Other 08-19-2021 17:10-0400 Systolic blood pressure 126 mm[Hg] Erica Kingston Other [employer] Other 08-13-2021 10:15-0400 Body height 162.56 cm Tita Ginty Other [employer] Other 08-13-2021 10:15-0400 Body mass index (BMI) [Ratio] 30.89 kg/m2 Tita Ginty Other [employer] Other 08-13-2021 10:15-0400 Body temperature 6 [degF] Tita Ginty Other [employer] Other 08-13-2021 10:15-0400 Body weight 81.65 kg Tita Dat Other [employer] Other 08-13-2021 10:15-0400 SaO2% (BldA) [Mass fraction] 99 % Tita Pinanty Other [employer] Other 07-28-2021 09:30-0400 Body height 162.56 cm Beto Snyder Other [employer] Other 07-28-2021 09:30-0400 Body mass index (BMI) [Ratio] 30.89 kg/m2 Beto Snyder Other [employer] Other 07-28-2021 09:30-0400 Body weight 81.65 kg Beto Snyder Other [employer] Other Encounters Encounter Date Encounter Type Care Provider Facility Start: 07-01-2025 End: 07-01-2025 Patient encounter procedure Monica Burns MARKETING PROJECT SPECIALIST-C -[facility] [address] [facility] Work Phone: Start: 07-01-2025 End: 07-01-2025 ambulatory Shannon Gómez DO Work Phone: [facility] Work Phone: Start: 06-27-2025 End: 06-27-2025 Evaluation and [facility] Start: 06-25-2025 End: 06-25-2025 Clinisync Result Encounter Generic External Data Provider [facility] External Department Unsolicited Start: 06-25-2025 End: 06-25-2025 Clinisync Result Encounter Generic External Data Provider [facility] External Department Unsolicited Start: 06-24-2025 End: 06-24-2025 Patient encounter status Dipti Acevedo DO Work Phone: [facility] Start: 06-24-2025 End: 06-24-2025 Periodic preventive med est patient 40-64yrs Dipti Acevedo DO Work Phone: [facility] Ambrosio MARTINEZ Comment on above: Encounter for gyneco logical examination without abnormal finding; Encounter for Papanicolaou smear of vagina; Breast cancer screening by mammogram; Hormone replacement therapy; Chronic vulvitis; Night sweats; Dyspareunia in female; Erythema Start: 06-24-2025 End: 06-24-2025 ambulatory DIPTI ACEVEDO Not Available Start: 06-06-2025 End: 06-06-2025 Office outpatient visit 15 minutes Nancy Swenson PA Work Phone: [facility] [phone] Comment on above: Mild persistent asth ma with acute exacerbation (HCC) (Primary Dx) Start: 06-06-2025 End: 06-06-2025 ambulatory NANCY SWENSON Not Available Start: 06-06-2025 End: 06-06-2025 Office outpatient new 45 minutes Vicki Roche DO Work Phone: [facility] Department of [facility] Comment on above: Gastroparesis (Prima ry Dx); Esophageal dysphagia; Gastroesophageal reflux disease with esophagitis without hemorrhage; Diarrhea, unspecified type; Flatulence Start: 06-06-2025 End: 06-06-2025 ambulatory ALBERTO SOLIS [facility] Start: 06-04-2025 End: 06-05-2025 Telephone encounter Joanna Piper [facility], A Department of [facility] Comment on above: Results Start: 05-19-2025 End: 05-19-2025 ambulatory [facility] Start: 05-14-2025 ambulatory [facility] Start: 05-13-2025 ambulatory [facility] Start: 05-05-2025 End: 05-05-2025 ambulatory Ace Ahumada MD Facility: [facility] Start: 04-30-2025 End: 04-30-2025 ambulatory Shannon Gómez DO Work Phone: [facility] Work Phone: Start: 04-30-2025 End: 04-30-2025 Patient encounter procedure juanchotonia Jacinto DO -[facility] [place] Work Phone: Start: 04-21-2025 End: 04-21-2025 Refill Pauline Christensen MD Work Phone: [facility] Comment on above: Other migraine witho ut status migrainosus, not intractable Start: 04-14-2025 End: 04-14-2025 ambulatory Ace Ahumada MD Facility: [place] Start: 03-17-2025 End: 03-17-2025 ambulatory Ace Ahumada MD Facility: [facility] Start: 02-25-2025 End: 02-25-2025 Patient encounter procedure Shannon Gómez DO Work Phone: [facility] [address] [facility] Work Phone: Start: 02-25-2025 End: 02-25-2025 ambulatory Shannon Gómez DO Work Phone: [facility] Work Phone: Start: 02-24-2025 End: 03-10-2025 Telephone encounter Dipti Acevedo DO Work Phone: [facility] Start: 02-17-2025 End: 02-17-2025 Patient encounter procedure Shannon Gómez DO Work Phone: [facility] [address] Work Phone: Start: 02-17-2025 End: 02-17-2025 ambulatory Shannon Gómez DO Work Phone: [facility] Work Phone: Start: 01-25-2025 End: 01-25-2025 Orders Only Pauline Christensen MD Work Phone: [facility] Start: 01-20-2025 End: 01-20-2025 Bamboo flowsheet Eliceo Ellis Dalia DO Work Phone: [facility] 230 Start: 01-20-2025 End: 01-20-2025 Bamboo flowsheet Eliceo Szymanskileigha DO Work Phone: [facility] Start: 01-20-2025 End: 01-20-2025 ambulatory NANCY SWENSON Not Available Start: 01-03-2025 End: 01-03-2025 Clinisync Result Encounter Generic External Data Provider [facility] External Department Unsolicited Start: 01-03-2025 End: 01-03-2025 Clinisync Result Encounter Generic External Data Provider [facility] External Department Unsolicited Start: 12-16-2024 End: 12-16-2024 Patient encounter procedure Shannon Szymanskileigha DO Work Phone: [facility] [address] Work Phone: Start: 12-16-2024 End: 12-16-2024 ambulatory Shannon Szymanskileigha DO Work Phone: [facility] Work Phone: Start: 12-11-2024 End: 12-11-[address] [place] [address] Start: 12-10-2024 End: 12-11-2024 [facility] Comment on above: Other migraine witho ut status migrainosus, not intractable Start: 11-26-2024 End: 11-26-2024 Refill Eliceo Asiya Dalia DO Work Phone: [facility] Comment on above: Restless legs syndro me Start: 11-20-2024 End: 11-20-2024 ambulatory Shannon Szymanskileigha DO Work Phone: [facility] Work Phone: Start: 11-20-2024 End: 11-20-2024 Patient encounter procedure Shannon Lugo Dalia DO Work Phone: [facility] Work Phone: Start: 11-19-2024 End: 11-19-2024 Bamboo flowsheet Nelsy Snyder MACHINE PACKAGE SEALER-AIR TUCKER Work Phone: [facility] Start: 11-19-2024 End: 11-19-2024 Bamboo flowsheet Nelsy Snyder MACHINE PACKAGE SEALER-AIR TUCKER Work Phone: [facility] Start: 11-19-2024 End: 11-19-2024 Office outpatient visit 15 minutes Nelsy Snyder MACHINE PACKAGE SEALER-AIR TUCKER Work Phone: [facility] Comment on above: Seborrheic keratosis ; Lentigines; Capillary angioma Start: 11-19-2024 End: 11-19-2024 ambulatory NELSY SNYDER Not Available Start: 11-14-2024 End: 11-14-2024 Patient encounter procedure Shannon Gómez DO Work Phone: [facility] Work Phone: Start: 11-14-2024 End: 11-14-2024 ambulatory Shannon Gómez DO Work Phone: [facility] Work Phone: Start: 11-12-2024 End: 11-12-2024 Postop follow up visit related to original px Dipti Acevedo DO Work Phone: [facility] Comment on above: Aftercare following surgery Start: 11-12-2024 End: 11-12-2024 ambulatory DIPTI ACEVEDO Not Available Start: 11-11-2024 End: 11-11-2024 ambulatory Ace Ahumada MD Facility: [facility] Start: 11-04-2024 End: 12-28-2024 ambulatory Shannon GÓMEZ Facility:[facility] Start: 10-28-2024 End: 10-28-2024 Postop follow up visit related to original px Dipti Acevedo DO Work Phone: [facility] Comment on above: Aftercare following surgery Start: 10-28-2024 End: 10-28-2024 ambulatory DIPTI ACEVEDO Not Available Start: 10-28-2024 ambulatory Shannon SZYMANSKILEIGHA Facili ty:[facility] Start: 10-24-2024 End: 10-24-2024 Admission to same day surgery center Shannon Szymanskileigha DO Work Phone: [facility] [place] Start: 10-24-2024 End: 10-24-2024 ambulatory IsatuReno Parish Gómez Facility:[facility] Start: 10-23-2024 End: 10-23-2024 Office outpatient visit 40 minutes Radha Cardenas MD Work Phone: [facility] Comment on above: Chronic diarrhea (Pr imary Dx); Chronic abdominal pain; Bloating; Inadequate oral intake; [place] grade D esophagitis; Gastroparesis Start: 10-23-2024 ambulatory Shannon SZYMANSKILEIGHA [place] ty:[facility] Start: 10-15-2024 End: 10-15-2024 Office outpatient visit 25 minutes Dipti Acevedo DO Work Phone: [facility] Comment on above: PCB (post coital ble eding); Granulation tissue; Hymen abnormality Start: 10-15-2024 End: 10-15-2024 ambulatory DIPTI ACEVEDO Not Available Start: 10-14-2024 End: 10-14-2024 Patient encounter procedure IsatuReno Parish Gómez DO Work Phone: [facility] Neuro[facility] Work Phone: Start: 10-10-2024 End: 10-10-2024 Patient encounter procedure Shannon Szymanskileigha DO Work Phone: [facility] [address] [facility] Work Phone: Start: 10-10-2024 End: 10-10-2024 ambulatory Shannon Gómez Facility:[facility] Start: 10-09-2024 End: 10-09-2024 ambulatory Shannon Gómez Facility:[facility] Start: 10-09-2024 Non-patient / Non-visit Shannon Gómez DO Work Phone: [facility] Work Phone: Start: 09-27-2024 End: 09-27-2024 Office outpatient visit 15 minutes Dipti Acevedo DO Work Phone: [facility] Comment on above: PCB (post coital ble eding) (Primary Dx); Granulation tissue Start: 09-27-2024 End: 09-27-2024 ambulatory DIPTI ACEVEDO Not Available Start: 09-26-2024 End: 09-26-2024 Office outpatient visit 15 minutes Ron King MARKETING PROJECT SPECIALIST Work Phone: [id number] Comment on above: Degenerative disc di sease, cervical (Primary Dx) Start: 09-26-2024 End: 09-27-2024 ambulatory RON KING Not Available Start: 09-24-2024 End: 09-24-2024 Office outpatient visit 15 minutes Dipti Acevedo DO Work Phone: [facility] Comment on above: Granulation tissue; Hymen abnormality Start: 09-24-2024 End: 09-24-2024 ambulatory DIPTI ACEVEDO Not Available Start: 09-16-2024 End: 09-16-2024 ambulatory [facility] Work Phone: Start: 09-16-2024 End: 09-16-2024 Patient encounter procedure [facility] Work Phone: Start: 09-04-2024 End: 09-04-2024 Office outpatient visit 15 minutes Ron King MARKETING PROJECT SPECIALIST Work Phone: [facility] [phone] Comment on above: Anxiety (Primary Dx) Urinary frequency; Urinary urgency; Burning with urination; Erythema; Chronic vulvitis; Night sweats Start: 09-04-2024 End: 09-04-2024 ambulatory RON KING Not Available Start: 08-27-2024 End: 08-27-2024 ambulatory ELICEO GÓMEZ Not Available Start: 08-26-2024 ambulatory PADMAJA LLAMAS Facility:[facility] Start: 08-07-2024 End: 08-07-2024 Office outpatient visit 40 minutes Radha Cardenas MD Work Phone: [facility]ology [facility]at[facility] Comment on above: Chronic abdominal pa in (Primary Dx); Avoidant-restrictive food intake disorder (ARFID); Bloating; Gastroparesis Start: 08-07-2024 ambulatory PADMAJA LLAMAS Facility:[facility] Start: 08-05-2024 End: 08-05-2024 ambulatory [facility] Start: 08-01-2024 End: 08-01-2024 Office outpatient visit 15 minutes Eliceo Gómez DO Work Phone: [facility] 230 Comment on above: Oral candidiasis (Pr imary Dx); Tongue pain Start: 08-01-2024 End: 08-01-2024 ambulatory ELICEO GÓMEZ Not Available Start: 07-26-2024 End: 07-26-[address] [facility] Start: 07-22-2024 End: 07-22-2024 ambulatory Ace [facility]ada MD [facility] Start: 07-15-2024 End: 07-15-2024 ambulatory ELICEO GÓMEZ Not Available Start: 07-11-2024 End: 07-11-2024 Bamboo flowsheet Eliceo Gómez DO Work Phone: [facility] 230 Start: 07-11-2024 End: 07-11-2024 Bamboo flowsheet Eliceo Gómez DO Work Phone: [facility] [address] Start: 07-11-2024 End: 07-11-2024 ambulatory ELICEO GÓMEZ Not Available Start: 07-11-2024 End: 07-11-2024 Office outpatient visit 15 minutes Eliceo Gómez DO Work Phone: [facility] [phone] Comment on above: Soft tissue mass (Pr imary Dx); Gastro-esophageal reflux disease without esophagitis; Gastroparesis; Mild intermittent asthma, unspecified whether complicated ([facility]/HCC) Start: 07-01-2024 End: 07-01-2024 ambulatory [facility] MD [facility] Start: 06-27-2024 End: 06-27-2024 Bamboo flowsheet Sidney Amezquita DPM Work Phone: [facility] Start: 06-27-2024 End: 06-27-2024 Bamboo flowsheet Sidney Sukumar Gurpreet DPM Work Phone: [facility] Start: 06-27-2024 End: 06-27-2024 Patient encounter procedure Sidney Amezquita DPM Work Phone: [facility] Comment on above: Peroneal tendinitis of right lower extremity (Primary Dx); Bilateral foot pain; Exostosis of bone of foot Start: 06-27-2024 End: 06-27-2024 ambulatory SIDNEY AMEZQUITA Not Available Start: 06-17-2024 End: 06-17-2024 ambulatory Ace Ahumada MD Facility:[facility] Start: 06-12-2024 Refill Isra S Clin e DO Work Phone: Gastroenterology Comment on above: Refill Request Start: 05-27-2024 End: 05-27-2024 ambulatory DO Shannon Gómez Work Phone: [facility] Work Phone: Start: 05-27-2024 End: 05-27-2024 Departed Referred DO Shannon Gómez Work Phone: [facility] Start: 05-14-2024 End: 05-15-2024 Refill Jose-Ramya Chavira [facility] Comment on above: Other migraine witho ut status migrainosus, not intractable (Primary Dx) Start: 04-30-2024 End: 04-30-2024 ambulatory DO Shannon Gómez Work Phone: [facility] Work Phone: Start: 04-30-2024 End: 04-30-2024 Patient encounter procedure DO Shannon Gómez Work Phone: [facility] [address] Work Phone: Start: 04-28-2024 End: 04-28-[address] [facility] Start: 04-28-2024 End: 04-28-[address] [facility] Start: 04-12-2024 ambulatory NA LI Facility:[facility] Start: 04-12-2024 End: 04-12-2024 Subsequent hospital visit by physician Milagros Franco MD, PhD Work Phone: [facility] Comment on above: Arrived Start: 04-03-2024 End: 04-03-[address] [facility] Start: 03-12-2024 ambulatory Flowershakir Sanabria on MACHINE PACKAGE SEALER.AIR TUCKER Work Phone: URO/Gynecology Comment on above: Estradiol vaginal cr eam Start: 03-08-2024 ambulatory SELF SELF Facility:[facility] Start: 03-06-2024 ambulatory Shannon Ramos ty:[facility] Start: 03-06-2024 ambulatory RADHA Lemos y:[facility] Start: 03-06-2024 ambulatory Shannon Ramos ty:[facility] Start: 02-27-2024 End: 02-27-2024 ambulatory FLOWER LOPEZ Facility:[facility] Start: 02-27-2024 End: 02-27-2024 Patient encounter procedure Flower Lopez MACHINE PACKAGE SEALER.AIR TUCKER Work Phone: URO/Gynecology Comment on above: Post-operative state (Primary Dx); Vaginal burning Start: 02-11-2024 End: 02-11-2024 ambulatory ELICEO GÓMEZ JR Facility:[facility] Start: 02-11-2024 End: 02-11-2024 ambulatory Lissa Doyle MACHINE PACKAGE SEALER.AIR TUCKER Work Phone: Telemedicine Comment on above: Procedure and treatm ent not carried out for other reasons (Primary Dx) Start: 02-11-2024 End: 02-11-2024 Telemedicine consultation with patient Lissa Vivek MACHINE PACKAGE SEALER.AIR TUCKER Work Phone: [facility] Start: 02-09-2024 ambulatory Pam rios MD Work Phone: URO/Gynecology Comment on above: Yeast infection Start: 02-07-2024 End: 02-07-2024 ambulatory [facility] Start: 01-27-2024 Telephone encounter Radha florez MD Work Phone: Gynecology Start: 01-26-2024 End: 01-26-2024 ambulatory ELICEO GÓMEZ Facility:[facility] Start: 01-25-2024 End: 01-25-2024 Telemedicine consultation with patient Nurse Superintendent Terminal Work Phone: [facility] Start: 01-25-2024 Encounter for other preprocedural examination [facility] Start: 01-25-2024 End: 01-25-2024 [facility] Work Phone: [facility] Start: 01-25-2024 End: 01-25-2024 ambulatory Nurse Superintendent Terminal Work Phone: Pre Anesthesia Comment on above: Pre-op examination ( Primary Dx); Obesity (BMI 30.0-34.9); Mild persistent asthma without complication; CHUCKIE (obstructive sleep apnea); Primary hypertension; Gastroparesis; Gastroesophageal reflux disease, unspecified whether esophagitis present Educational circumst ances (Primary Dx) Start: 01-25-2024 End: 01-25-2024 Preprocedural examination done [facility] [address] Work Phone: [facility] Work Phone: Start: 01-10-2024 End: 01-10-2024 Postop follow up visit related to original px Cullen Dawkins MD Work Phone: [facility] - E[facility] Comment on above: CHUCKIE (obstructive sle ep apnea) (Primary Dx) Start: 12-27-2023 Telephone encounter Cullen glover MD Work Phone: [facility] - [facility] Start: 12-25-2023 ambulatory Pam rios MD Work Phone: URO/Gynecology Comment on above: Having another stimu lator besides bladder Start: 12-25-2023 Telephone encounter Pam simon MD Work Phone: Gynecology Comment on above: Question Start: 12-20-2023 End: 12-20-2023 Patient encounter procedure [facility] Provider 13 [facility] Comment on above: Pre-op testing (Prim tomer Dx) Start: 12-20-2023 End: 12-20-2023 Patient encounter status [facility] Start: 11-27-2023 End: 11-27-2023 ambulatory Beto Snyder Other [employer] Other Start: 11-27-2023 Telephone encounter [facility] Start: 11-23-2023 End: 11-23-2023 ambulatory DO Shannon Szymanskibijutomasa Work Phone: [facility] Work Phone: Start: 11-23-2023 End: 11-23-2023 Patient encounter procedure DO Shannon Gómez Work Phone: [facility] Work Phone: Start: 11-21-2023 End: 11-21-2023 ambulatory ELICEO GÓMEZ JR Facility:[facility] Start: 11-16-2023 End: 11-16-2023 ambulatory Beto Snyder Other [employer] Other Start: 11-16-2023 Telephone encounter [facility] Start: 11-08-2023 Telephone encounter Emily Zamora [facility] Start: 11-03-2023 Orders Only Pauline Christensen MD Work Phone: [facility] Start: 10-26-2023 End: 10-26-2023 ambulatory Beto Snyder Other [employer] Other Start: 10-26-2023 Telephone encounter Beto Lunsford [facility] Start: 10-23-2023 End: 10-23-2023 ambulatory [facility] Start: 10-10-2023 End: 10-10-2023 ambulatory ELICEO GÓMEZ JR Facility:[facility] Start: 10-06-2023 End: 10-06-2023 ambulatory Beto Snyder Other [employer] Other Start: 10-06-2023 Telephone encounter Beto Lunsford [facility] Start: 09-27-2023 End: 09-27-2023 ambulatory Pam Wang MD Work Phone: Urogynecology Comment on above: Worsening Start: 09-27-2023 Refill Doris Arias MACHINE PACKAGE SEALER.AIR TUCKER Work Phone (unformatted): [phone] Urogynecology Comment on above: Med Change Request Start: 09-11-2023 End: 09-11-2023 ambulatory PAM WANG Facility:[facility] Start: 08-12-2023 End: 08-12-2023 Emergency department patient visit LEX SALMON [facility] Start: 08-12-2023 End: 08-12-2023 Emergency department patient visit Lex Salmon MD Work Phone: [facility] Comment on above: Upper abdominal pain (Primary Dx) Start: 08-09-2023 ambulatory Mary Obrien MD Work Phone: Colorectal Surgery Comment on above: Response Start: 08-07-2023 End: 08-07-2023 ambulatory Mary Obrien MD Work Phone: Colorectal Surgery Comment on above: Colon Start: 08-01-[address] Eliceo Gómez Jr Facility: Start: 07-31-2023 End: 07-31-2023 ambulatory ELICEO GÓMEZ JR Facility:[facility] Start: 07-31-2023 End: 07-31-2023 Patient encounter procedure Nelsy Chávez MACHINE PACKAGE SEALER.AIR TUCKER Work Phone: URO/Gynecology Comment on above: Incomplete bladder e mptying (Primary Dx); Constipation, unspecified constipation type; Urinary urgency; Urinary frequency; Nocturia Start: 07-17-2023 (Procedure) Short Beto Snyder [facility] Start: 07-17-2023 End: 07-17-2023 ambulatory Beto Snyder Other [facility] [employer] Other Start: 07-12-2023 End: 07-12-2023 ambulatory Beto Snyder Other [facility] [employer] Other Start: 07-12-2023 Telephone encounter [facility] Start: 06-13-2023 Office consultation new/estab patient 60 min Eliceo Gómez Work Phone: [facility] [address] DO Work Phone: Start: 06-13-[address] Dipti Anaya Facility: Start: 06-07-[address] Dipti Anaya Facility:[id number] Start: 06-05-2023 End: 06-05-2023 Emergency department patient visit DO Shannon Gómez Work Phone: [facility]-Emergency Room Work Phone: Start: 05-28-2023 ambulatory Pam riso MD Work Phone: URO/Gynecology Comment on above: Problems with urinat ing Start: 04-26-2023 End: 04-26-2023 ambulatory Beto Snyder Other [email or web address] Other Start: 04-26-2023 Office outpatient vi sit 25 minutes Beto Snyder [facility] [place] Start: 04-11-2023 Refill Isra S Clin e DO Work Phone: Gastroenterology Comment on above: Refill Request Start: 04-04-2023 End: 04-05-[address] Isatu GÓMEZ Facility:[facility] Start: 03-19-2023 ambulatory Isra S Clin e DO Work Phone: Gastroenterology Comment on above: Stool sample results Start: 03-17-2023 End: 03-17-2023 ambulatory DO Shannon Gómez Work Phone: [facility] Work Phone: Start: 03-17-2023 End: 03-17-2023 Discharged Recurring DO Shannon Gómez Work Phone: [facility]Physical Therapy [place] Work Phone: Start: 03-15-2023 Orders Only Isra [...] Start: 01-16-2023 End: 01-16-2023 Admission to establishment [facility] Start: 01-16-2023 End: 01-16-2023 ambulatory [facility] Pre Anesthesia Comment on above: Preop [...] with patient Winston Hannah DO Work Phone: [email or web address] Start: 12-28-2022 ambulatory Yoni Tuttle MD Work [...] with patient Winston Hannah DO Work Phone: [email or web address] Start: 12-21-2022 End: 12-22-2022 ambulatory SADE FELIX Facility:[facility] Start: 12-15-2022 End: 12-15-2022 Manual pelvic examination Mary Obrien MD Work Phone: Colorectal Surgery Comment on above: Colonic inertia (Phoebe unique Dx); Pelvic floor dysfunction; Nausea; Gastroparesis Start: 12-15-2022 End: 12-15-2022 Telemedicine consultation with patient Mary Obrien MD Work Phone: [facility] Start: 12-14-2022 ambulatory Yoni [...] patient questions) Start: 12-07-2022 ambulatory Winston Keys Brandii c DO Work Phone: General Surgery Comment on above: Carafate Start: 12-06-2022 ambulatory Isra S Clin e DO Work Phone: Gastroenterology Comment on above: Results Start: 12-05-2022 ambulatory Winston Zoya Velazquez c DO Work Phone: [facility] Start: 12-02-2022 ambulatory Isra S Clin e DO Work Phone: [facility] Start: 12-02-2022 Telephone encounter Yoni Tuttle MD Work Phone: Neurology Comment on above: Returning Nurse Call Start: 12-01-2022 End: 12-02-2022 ambulatory NIECY DURON Facility:[facility] Start: 11-30-2022 End: 11-30-2022 ambulatory Isra S Masters DO Work Phone: Gastroenterology Comment on above: Chronic idiopathic c onstipation (Primary Dx); Nausea Start: 11-30-2022 End: 11-30-2022 Telemedicine consultation with patient Isra S Masters DO Work Phone: [facility] Start: 11-24-2022 ambulatory Isra S Clin e [...] Start: 11-21-2022 End: 11-21-2022 [facility] Work Phone: [facility] Start: 11-21-2022 End: 11-21-2022 Preprocedural examination done [facility] 2 Work Phone: Pre Anesthesia Start: 11-17-2022 ambulatory Annmarie Gillespie RN Gastroe nterology Start: 11-17-2022 Patient encounter procedure Annmarie Gillespie RN [facility] Start: 11-17-2022 End: 11-17-2022 Subsequent hospital visit by physician Capsule Work Phone: Gastroenterology Start: 11-16-2022 ambulatory Yoni Tuttle MD Work Phone: NEUROLOGY Comment on above: The delay Start: 11-15-2022 ambulatory Yoni Tuttle MD Work Phone: NEUROLOGY Comment on above: Labs Start: 11-14-2022 End: 11-15-2022 ambulatory NIECY DURON Facility:[facility] Start: 11-10-2022 Telephone encounter Annmarie Gillespie RNrounder and backer Comment on above: [employer] Start: 11-10-2022 End: 11-11-2022 ambulatory NIECY DURON Facility:[facility] Start: 11-09-2022 Telephone encounter Yoni Tuttle MD Work Phone: Neurology Comment on above: Orders (SENT PATIENT S IRON RX ) Patient Update Start: 11-02-2022 Telephone encounter Yoin Tuttle MD Work Phone: Neurology Comment on above: Results - Sleep Stud y Start: 10-31-2022 ambulatory Yoni Tuttle MD Work Phone: NEUROLOGY Comment on above: Iron test Smart pill Start: 10-24-2022 Telephone encounter Isra Masters DO Work Phone: Gastroenterology Comment on above: Patient Question Start: 10-23-2022 Encounter for preprocedural laboratory examination SADE FELIX [facility] Start: 10-20-2022 End: 10-20-2022 ambulatory [...] 10-14-2022 ambulatory DO Shannon Gómez Work Phone: [facility] Work Phone: Start: 10-14-2022 End: 10-14-2022 Discharged Recurring DO Shannon Gómez Work Phone: [facility] [place] Work Phone: Start: 10-13-2022 End: 10-14-2022 ambulatory SADE BROWERROBERTA Facility:[facility] Start: 10-13-2022 End: 10-14-2022 Encounter for preprocedural laboratory examination SADE FELIX Facility:[facility] Start: 10-11-2022 End: 10-11-2022 ambulatory Beto Cartagena Other [employer] Other Start: 10-11-2022 Telephone encounter Beto BRICE Bottle Tester Start: 10-11-2022 End: 10-11-2022 Patient encounter procedure Isra Masters DO Work Phone: Gastroenterology Comment on above: Gas bloat syndrome ( Primary Dx); Chronic idiopathic constipation; Gastroparesis Start: 10-10-2022 End: 10-10-2022 ambulatory Beto Cartagena Other [employer] Other Start: 10-10-2022 Office outpatient ne w 30 minutes Beto Cartagena [facility] Start: 10-06-2022 End: 10-06-2022 ambulatory Beto Snyder Other [employer] Other Start: 10-06-2022 Patient encounter procedure Beto Snyder [facility] [place] Start: 09-28-2022 Encounter for other preprocedural examination [facility] Start: 09-28-2022 Encounter for preprocedural cardiovascular examination [facility] Start: 09-26-2022 End: 09-27-2022 ambulatory [facility] Facility:[facility] Start: 09-22-2022 Office outpatient vi sit 25 minutes Beto Snyder [facility] [place] Start: 09-22-2022 Telephone encounter Beto BATES [facility] [place] Start: 09-22-2022 End: 09-22-2022 ambulatory DO Shannon Gómez Work Phone: [employer] Other Start: 09-22-2022 End: 09-22-2022 Patient encounter procedure DO Shannon Gómez Work Phone: [facility] Start: 09-14-2022 End: 09-14-2022 ambulatory Eliceo Gómez Other [employer] Other Start: 09-14-2022 Encounter by sierra Gómez [facility] [place] Start: 09-14-2022 Office outpatient vi sit 15 minutes Beto Snyder [facility] [place] Start: 09-14-2022 Telephone encounter Beto Snyder [facility] Start: 08-16-2022 ambulatory Mary Obrien MD Work Phone: Colorectal Surgery Comment on above: CT results Ct scan result lisa mercer Start: 08-16-2022 E-mail encounter kendra jacinto caregiver Mary Obrien MD Work Phone: [facility] Start: 08-12-2022 End: 08-12-2022 Subsequent hospital visit by physician Ct Prep [facility] Start: 07-27-2022 End: 07-28-2022 ambulatory [facility] Facility:[facility] Start: 07-26-2022 Telephone encounter Isra Masters DO Work Phone: Gastroenterology Comment on above: Medication Problem; Medication 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 ([place] for Dexlansoprazole) Start: 07-26-2022 End: 07-26-2022 Patient encounter procedure Mary Obrien MD Work Phone: Colorectal Surgery Comment on above: Follow-up examinatio n after colorectal surgery (Primary Dx); Periumbilical abdominal pain; Outlet dysfunction constipation; Colonic inertia Start: 06-08-2022 (Procedure) Short Beto Snyder [facility] Start: 06-08-2022 End: 06-08-2022 ambulatory Beto Snyder Other [employer] Other Start: 05-30-2022 Refill Mary Obrien MD Work Phone: Colorectal Surgery Comment on above: Refill Request Start: 05-26-2022 End: 05-26-2022 ambulatory Beto Snyder Other [employer] Other Start: 05-26-2022 Office outpatient vi sit 25 minutes Beto Snyder [facility] [place] Start: 05-12-2022 Office consultation new/estab patient 60 min Eliceo Gómez Work Phone: [facility] DO Work Phone: Start: 05-10-2022 End: 05-10-2022 ambulatory Allison Arita Other [employer] Other Start: 05-10-2022 Office outpatient vi sit 15 minutes Allison Arita [facility] Start: 05-03-2022 Telephone encounter Mary brewer MD Work Phone: Colorectal Surgery Comment on above: Street Roller Engineer - O ther Start: 04-26-2022 Telephone encounter Mary brewer MD Work Phone: Colorectal Surgery Comment on above: Patient Question Start: 04-22-2022 End: 04-22-2022 Patient encounter procedure Jessi Dantemakenzie ROWANAIR TUCKER Work Phone: Colorectal Surgery Comment on above: Follow-up examinatio n after colorectal surgery (Primary Dx); Pelvic floor dysfunction Start: 04-17-2022 End: 04-17-2022 ambulatory CHASITY FREIRE . Facility: Start: 04-07-2022 Telephone encounter Rachael Keys [facility] Department Comment on above: PostOp Follow-up Start: 03-22-2022 Telephone encounter Mary brewer MD Work Phone: Colorectal Surgery Comment on above: Patient Question Start: 03-15-2022 End: 03-15-2022 ambulatory Beto Snyder Other [employer] Other Start: 03-15-2022 Office outpatient vi sit 15 minutes Beto Snyder [facility] [place] Start: 03-15-2022 Telephone encounter Mary brewer MD Work Phone: Colorectal Surgery Comment on above: Street Roller Engineer - O ther Medication Preauthor ization ([place] for Dexilant renewal) Outside Labs Results Start: 03-15-2022 End: 03-15-2022 Patient encounter procedure Isra Masters DO Work Phone: Gastroenterology Comment on above: Gastroesophageal ref lux disease, unspecified whether esophagitis present; Chronic idiopathic constipation Start: 03-14-2022 End: 03-14-2022 [place] [id number] Work Phone: Pre Anesthesia Comment on above: Preop examination (P rimary Dx); Attention to ileostomy ([facility]); Primary hypertension; Gastroparesis; Gastroesophageal reflux disease, unspecified whether esophagitis present; Mild persistent asthma without complication; Bipolar 1 disorder ([facility]); Obesity (BMI 30.0-34.9) Start: 03-14-2022 End: 03-14-2022 Preprocedural examination done [facility] 4 Work Phone: Pre Anesthesia Start: 02-28-2022 Telephone encounter Isra Masters DO Work Phone: Gastroenterology Comment on above: Appointment (for scr ipt refill) Start: 02-18-2022 End: 02-18-2022 Patient encounter procedure Nelsy Chávez DANN.AIR TUCKER Work Phone: URO/Gynecology Comment on above: Postoperative state (Primary Dx) Start: 02-11-2022 End: 02-11-2022 ambulatory Flaca Barhtolomew PT Work Phone[facility] Start: 02-11-2022 End: 02-11-2022 Follow-up encounter Flaca Bartholomew PT Work Phone: [facility] Physical Therapy Comment on above: Pelvic floor dysfunc tion (Primary Dx); Lack of coordination; Follow-up examination after colorectal surgery Start: 02-09-2022 (Procedure) Win Snyder [facility] Start: 02-09-2022 End: 02-09-2022 ambulatory Beto Snyder Other [facility] [employer] Other Start: 02-08-2022 End: 02-08-2022 Patient encounter procedure Mary Obrien MD Work Phone: Colorectal Surgery Comment on above: Follow-up examinatio n after colorectal surgery (Primary Dx) Post-operative state (Primary Dx); Yeast infection of the skin Start: 02-01-2022 Refill Isra S Clin e DO Work Phone: Gastroenterology Comment on above: Refill Request (dexl ansoprazole) Start: 01-31-2022 End: 01-31-2022 ambulatory Newton Woodward PT Work Phone: [facility] Start: 01-31-2022 End: 01-31-2022 Follow-up encounter Newton Woodward PT Work Phone: [facility] Physical Therapy Comment on above: Pelvic floor dysfunc tion (Primary Dx); Lack of coordination; Follow-up examination after colorectal surgery Start: 11-25-2021 End: 11-25-2021 ambulatory Beto Fernándeztonia Other [employer] Other Start: 11-25-2021 Office outpatient vi sit 25 minutes Beto Snyder [facility] [place] Start: 11-17-2021 End: 11-18-2021 ambulatory [facility] Start: 10-20-2021 End: 10-20-2021 ambulatory Beto Snyder Other [employer] Other Start: 10-20-2021 Office outpatient vi sit 25 minutes Beto Snyder [facility] [place] Start: 10-13-2021 (Procedure) Short Beto Snyder [facility] Start: 10-13-2021 End: 10-13-2021 ambulatory Beto Pradeeptonia Other [employer] Other Start: 09-06-2021 Office outpatient vi sit 25 minutes Beto Snyder [facility] [place] Start: 08-19-2021 Office outpatient vi sit 15 minutes Erica Kingston [facility] Start: 08-13-2021 Office outpatient vi sit 15 minutes Tita Daugherty [facility] Start: 08-12-2021 Office outpatient vi sit 25 minutes Beto Snyder [facility] [place] Start: 07-28-2021 Office outpatient vi sit 25 minutes Beto Snyder [facility] [place] Start: 12-25-2020 End: 12-25-2020 Subsequent hospital visit by physician Brianna Connors 1 Work Phone: Radiology Comment on above: Post-operative state [Z98.890] Start: 09-29-2020 End: 09-29-2020 Subsequent hospital visit by physician Brianna Connors 1 Work Phone: Radiology Comment on above: Pain [R52] Procedures Date Procedure Procedure Detail Performing Clinician Start: 07-01-2025 MR lumbar spine wo con Shannon Gómez DO Work Phone: Start: 06-25-2025 Radiologic examinati on tibia & fibula 2 views Generic External Data Provider Start: 06-25-2025 XR FOOT RT MIN 3V Gener ic External Data Provider Start: 02-25-2025 XR pre/post mri xray Shannon Gómez DO Work Phone: Start: 02-25-2025 MR thoracic spine wo con Shannon Gómez DO Work Phone: Start: 02-17-2025 Aldolase measurement Shannon Gómez DO Work Phone: Comment on above: Performed at: [place] [id number] Director: Erick Neville PhD, Phone: [phone] Start: 01-03-2025 XR FOOT RT MIN 3V [...] Work Phone: Start: 07-26-2024 Follow-up visit Follow-up [facility] Start: 04-30-2024 MRI of right ankle DO Isatu Gómez Work Phone: Start: 04-12-2024 DIAGNOSTIC UPPER ENDOSCOPY Pamdaja Llamas MD, PhD Work Phone: Start: 02-27-2024 BACTERIAL VAGINOSIS NAAT Flower Lopez MACHINE PACKAGE SEALER.AIR TUCKER Work Phone: Start: 02-27-2024 Iadna trichomonas vaginalis amplified probe tech Flower Lopez MACHINE PACKAGE SEALER.AIR TUCKER Work Phone: Start: 02-27-2024 Urnls dip stick/tabl et rgnt auto w/o microscopy Flower Lopez MACHINE PACKAGE SEALER.AIR TUCKER Work Phone: Start: 12-20-2023 Basic metabolic pane [...] Assay of troponin quantitative Lev Ritter APRN [employer] Work Phone: Start: 08-12-2023 Ct abdomen & pelvis w/contrast material Lev Ritter APRN [employer] T[employer] Work Phone: Start: 08-12-2023 Urnls dip stick/tabl et reagent auto microscopy Lex Salmon MD Work Phone: Start: 08-12-2023 Basic metabolic pane l calcium total Lex Salmon MD Work Phone: Start: 08-12-2023 DARK GREEN TOP Lex buitrago MD Work Phone: Start: 08-12-2023 GOLD TOP Lex urbina MD Work Phone: Start: 08-12-2023 Hepatic function panel Lev Ritter APRN [employer] T[employer] Work Phone: Start: 08-12-2023 LIGHT BLUE TOP [...] et rgnt auto w/o microscopy Nelsy Chávez MACHINE PACKAGE SEALER.AIR TUCKER Work Phone: Start: 06-05-2023 Plain chest X-ray DO Shannon Gómez Work Phone: Start: 05-23-2023 H/O: artificial joint Presence of right artificial ankle joint Sidney Amezquita DPM Work Phone: Start: 03-02-2023 Aerobic microbial culture DO Shannon Parish Szymanskileigha Work Phone: Start: 12-26-2022 Radiologic exam esop hagus single contrast study Winston Hannah DO Work Phone: Start: 09-22-2022 Plain X-ray of bilat eral shoulders DO Shannon Gómez Work Phone: Start: 09-22-2022 X-ray of both knees DO Shannon Gómez Work Phone: Start: 09-14-2022 Mammography Lex rincon MD Work Phone: Start: 03-02-2022 Lipid 1996 panel - S jay or Plasma Nelsy Katya MACHINE PACKAGE SEALER.AIR TUCKER Work Phone: Start: 02-08-2022 Urnls dip stick/tabl et rgnt auto w/o microscopy Magali Mitchell MACHINE PACKAGE SEALER.AIR TUCKER Work Phone: Start: 12-16-2021 Antibody screen Comment on above: Performed By: #### T SCR30 ####[place] [phone] Start: 10-15-2021 Antibody screen Comment on above: Performed By: #### T SCR30 ####[place] [phone] Start: 06-28-2021 Mammography Mary brewer MD Work [...] Colonoscopy Eliceo Gómez Work Phone: Hysterectomy Eliceo R Dalia Work [...] DTAP/TDAP/TD VACCINE (2 - Td or Tdap) [facility] Start: 06-22-2030 DTaP,Tdap and Td Vaccines (2 - Td or Tdap) DTaP,Tdap and Td Vaccines (2 - Td or Tdap) [facility] Start: 06-22-2030 Tetanus vaccination TETANUS [facility] Start: 06-22-2030 Urine microalbumin profile DTaP,Tdap,Td Vaccine (2 - T d or Tdap) [facility] Start: 11-01-2028 Lipid panel Lipid Screening [facility] Start: 12-05-2027 COLORECTAL CANCER SCREENING COLORECTAL CANCER SCREENING [facility] Start: 12-05-2027 Screening for malignant neoplasm of colon [facility] Start: 12-05-2027 SIGMOIDOSCOPY SIGMOIDOSCOPY [facility] Start: 03-02-2027 Lipid 1996 panel - Serum or Plasma Lipid Screening [facility] Start: 03-02-2027 LIPID SCREEN LIPID SCREEN [facility] Start: 12-20-2026 Diabetes Screening Diabetes Screening [facility] Start: 08-12-2026 Diabetes Screening Diabetes Screening [facility] Start: 06-06-2026 Adult BMI Screening Adult BMI Screening [facility] Start: 06-06-2026 Tobacco Screening Tobacco Screening [facility] Start: 01-20-2026 Medicare Annual Wellness (AWV) Medicare Annual Wellness (AWV) [facility] Start: 11-20-2025 End: 11-20-2025 Patient encounter procedure [facility] EVELIO PA M Start: 08-19-2025 End: 08-19-2025 Patient encounter procedure 08/19/2025 3:30 PM EDT Office Visit [facility] Neurology, A Department of [facility] [address] [facility] [address] [place] [phone] Pauline Christensen MD [address] [facility] [address] [place] [address] [facility] Neurology, A Department of [facility] Start: 07-09-2025 End: 07-09-2025 Patient encounter procedure 07/09/2025 3:00 PM EDT Office Visit [facility] [address] [place] [address] Chantale Sweet PA [address] [place] [address] [facility] Start: 07-07-2025 Influenza vaccination Influenza Vaccine [facility] Start: 06-27-2025 End: 06-27-2025 Admission to same day surgery center 06/27/2025 3:30 PM EDT - 06/27/2025 4:00 PM EDT Surgery [facility] [address] [facility] [place] [address] Alberto Solis MD [address] [facility] [address] [place] [address] ESOPHAGOGASTRODUODENOSCOPY DILATATION [facility] Comment on above: ESOPHAGOGASTRODUODENOSCOPY DILATATION Start: 06-27-2025 End: 06-27-2025 ESOPHAGOGASTRODUODENOSCOPY DILATATION ESOPHAGOGASTRODUODENOSCOPY DILATATION esophageal dysphagia 06/27/2025 3:30 PM EDT [facility] Start: 06-27-2025 Subsequent hospital visit by physician 06/27/2025 3:30 PM EDT Hospital Encounter [facility] End[facility] [address] [facility] [place] [address] Alberto Solis MD [address] [facility] [address] [place] [address] [facility] Start: 06-24-2025 End: 08-24-2026 DBT Breast - bilateral screening Bilateral screening mammogram with tomosynthesis Imaging Routine Breast cancer screening by mammogram Expected: 06/24/2025, Expires: 08/24/2026 [facility] Comment on above: Expected: 06/24/2025, Expires: Start: 06-24-2025 End: 06-24-2025 Patient encounter procedure 06/24/2025 9:00 AM EDT Office Visit JALEESA MARTINEZ [address] [place] [address] Dipti Acevedo DO [address] [place] [address] JALE[facility] MARTINEZ Start: 06-17-2025 End: 06-17-2025 Patient encounter procedure 06/17/2025 8:15 AM EDT Office Visit [facility], A Department of [address] [address] Soraida Gama PA [address] [facility] [address] [place] [address] [facility], A Department of [facility] Start: 06-06-2025 End: 06-06-2025 Patient encounter procedure 06/06/2025 9:00 AM EDT Office Visit [facility], A Department of [address] [place] [phone] Vicki Roche, [address] [facility] [place] [address] Alberto Solis MD [address] , [facility] [address] [place] [address] [facility], A Department of [facility] Start: 04-30-2025 End: 04-30-2025 Patient encounter procedure 04/30/2025 4:00 PM EDT Procedure Visit [facility] TO[facility] [address] [place] [phone] Salma Galeas DO [address] [place] [address] [facility] Start: 04-05-2025 DIABETES SCREEN DIABETES SCREEN [facility] Start: 04-05-2025 Diabetes Screening Diabetes Screening [facility] Start: 03-14-2025 DIABETES SCREEN DIABETES SCREEN [facility] Start: 03-14-2025 Medicare Annual Wellness (AWV) Medicare Annual Wellness (AWV) [facility] Start: 02-17-2025 Aldolase measurement [facility] Start: 01-20-2025 End: 01-20-2025 Patient encounter procedure 01/20/2025 1:00 PM EDT Office Visit [facility] [address] [place] [address] Eliceo Gómez DO [address] [place] [address] Bipolar disorder, current episode depressed, moderate (CMS/HCC) [facility] Comment on above: Bipolar disorder, current episode depres sed, moderate (CMS/HCC) Start: 01-09-2025 Adult BMI Screening Adult BMI Screening [facility] Start: 01-09-2025 Tobacco Screening Tobacco Screening [facility] Start: 12-26-2024 DIABETES SCREEN DIABETES SCREEN [facility] Start: 12-20-2024 Adult BMI Screening Adult BMI Screening [facility] Start: 12-20-2024 Tobacco Screening Tobacco Screening [facility] Start: 12-16-2024 Aldolase measurement [facility] Start: 12-16-2024 Hemolytic complement CH50 level [facility] Start: 12-16-2024 [facility] Start: 11-20-2024 Patient referral [facility] Work Phone: Start: 11-19-2024 End: 11-19-2024 Patient encounter procedure [facility] Comment on above: Arrived Start: 11-12-2024 End: 11-12-2024 Patient encounter procedure 11/12/2024 8:30 AM EST Office Visit [facility] [address] [place] [phone] Dipti Acevedo, [address] [place] [address] [facility] Start: 11-11-2024 End: 11-11-2024 Patient encounter procedure 11/11/2024 9:20 AM EST Office Visit [facility] [address] [place] [address] Nelsy Snyder, MACHINE PACKAGE SEALER-AIR TUCKER [address] [place] [address] [facility] Start: 11-04-2024 End: 11-04-2024 Telemedicine consultation with patient 11/04/2024 2:00 PM EST Telemedicine [facility] [address] [place] [address] Merissa Delarosa, RD [address] [place] [address] [address] [place] [address] [facility] [place] Start: 11-01-2024 End: 11-01-2024 Professional / ancillary services management 11/01/2024 11:00 AM EST Ancillary Procedure [facility] [place] [address] [place] [address] [facility] [place] Start: 11-01-2024 End: 11-01-2024 Patient encounter procedure [facility] Comment on above: Aftercare following surgery Start: 10-31-2024 Screening for malignant neoplasm of breast [facility] Start: 10-28-2024 End: 10-28-2024 Telemedicine consultation with patient 10/28/2024 9:00 AM EST Telemedicine [facility] [place] [address] [facility] [address] [place] [address] Lissa Lou, RD [address] [facility] [facility] [address] [place] [phone] [facility] [place] Start: 10-24-2024 [facility] Start: 10-24-2024 [facility] Start: 10-23-2024 Adult BMI Screening Adult BMI Screening [facility] Start: 10-23-2024 Depression Screening Depression Screening [facility] Start: 10-23-2024 End: 10-23-2025 FECAL FAT,QUANTITATIVE FECAL FAT,QUANTITATIVE Fluids Routine Chronic diarrhea Expected: 10/23/2024, Expires: 10/23/2025 [facility] Comment on above: Expected: 10/23/2024, Expires: Start: 10-23-2024 End: 10-23-2025 NM Stomach Views for gastric emptying W [id number] SC PO NUC GASTRIC EMPTYING Imaging Routine Bloating Gastroparesis Expected: 10/23/2024, Expires: 10/23/2025 [facility] Comment on above: Expected: 10/23/2024, Expires: Start: 10-23-2024 End: 10-23-2025 PANCREATIC ELASTASE, STOOL PANCREATIC ELASTASE, STOOL Fluids Routine Chronic diarrhea Expected: 10/23/2024, Expires: 10/23/2025 [facility] Comment on above: Expected: 10/23/2024, Expires: Start: 10-23-2024 Tobacco Screening Tobacco Screening [facility] Start: 10-10-2024 BP Controlled (<130/80) BP Controlled (<130/80) [facility] Start: 07-12-2024 End: 07-12-2024 Professional / ancillary services management 07/12/2024 1:30 PM EDT Ancillary Procedure [facility] US [address] [place] [phone] [facility] Start: 07-11-2024 End: 07-11-2025 US Soft Tissue Palpable Mass US Soft Tissue Palpable M ass Imaging Routine Soft tissue mass Expected: 07/11/2024, Expires: 07/11/2025 [facility] Work Phone: Comment on above: Expected: 07/11/2024, Expires: Start: 07-07-2024 COVID-19 VACCINE () COVID-19 VACCINE () [facility] Start: 07-07-2024 Covid-19 Vaccine ( season) Covid-19 Vaccine () [facility] Start: 07-07-2024 Influenza vaccination [facility] Start: 06-27-2024 End: 06-27-2024 Patient encounter procedure 06/27/2024 9:45 AM EDT Office Visit [facility] PODIATRY [address] [place] [phone] Sidney Amezquita DPM [address] [place] [address] Arrived [facility] Comment on above: Arrived Start: 05-31-2024 Administration of varicella zoster vaccine Zoster (Shingles) Vaccine (2 of 2) [facility] Start: 05-31-2024 Zoster vaccine hzv live for subcutaneous use ZOSTER (SHINGLES) VACCINE (2 of 2) [facility] Start: 04-18-2024 End: 04-18-2024 Patient encounter procedure 04/18/2024 1:30 PM EDT [facility] [address] [place] [phone] Pauline Christensen MD [address] [place] [address], [address], [address], [address] [place] [address] [facility] Start: 01-10-2024 End: 01-10-2024 Patient encounter procedure 01/10/2024 12:45 PM EST Office Visit [facility] ENT [address] [place] [address], [address] [place] [address] Cullen Dawkins MD [address] [place] [address] [address] [facility] [place] [address] [facility] Start: 01-02-2024 End: 01-02-2024 Admission to same day surgery center 01/02/2024 11:00 AM EST - 01/02/2024 3:30 PM EST Surgery [facility] [address] [facility] [address] Cullen Dawkins MD [address] [place] [address] [address] [place] [address] INSERTION STIMULATOR NERVE HYPOGLOSSAL [45643 (CPT )] [facility] Comment on above: INSERTION STIMULATOR NERVE HYPOGLOSSAL [ 97078 (CPT )] Start: 01-02-2024 End: 01-02-2024 INSERTION STIMULATOR NERVE HYPOGLOSSAL INSERTION STIMULATOR NERVE HYPOGLOSSAL CHUCKIE (obstructive sleep apnea) 01/02/2024 11:00 AM EST [facility] Start: 01-02-2024 Subsequent hospital visit by physician 01/02/2024 11:00 AM EST Hospital Encounter [facility] [address] [place] [address] Cullen Dawkins MD [address] [place] [address] [address] [facility] [address] [facility] Surgery Start: 11-06-2023 Behavioral Health Screening Behavioral Health Screening [facility] Start: 11-06-2023 Depression Assessment Depression Assessment [facility] Start: 09-27-2023 End: 12-27-2023 Bacteria identified in Urine by Culture URINE CULTURE Microbiology Routine Burning with urination Expected: 09/27/2023, Expires: 12/27/2023 [facility] Work Phone: Comment on above: Expected: 09/27/2023, Expires: Start: 09-14-2023 Screening for malignant neoplasm of breast MAMMOGRAM [facility] Start: 08-01-2023 FUV, Provider: Dipti Anaya, Status: Pen, Time: 11:00 AM FUV, Provider: Dipti Anaya, Status: Pen, Time: 11:00 AM [facility] [address] DO Work Phone: Start: 07-07-2023 Covid-19 Vaccine ( season) Covid-19 Vaccine () [facility] Start: 07-07-2023 Influenza vaccination [facility] Start: 07-07-2023 Influenza vaccination given INFLUENZA VACCINE (#1) [facility] Start: 06-05-2023 [facility] Start: 04-22-2023 BP CONTROLLED (<130/80) BP CONTROLLED (<130/80) [facility] Start: 03-14-2023 BP CONTROLLED (<130/80) BP CONTROLLED (<130/80) [facility] Start: 02-18-2023 BP CONTROLLED (<130/80) BP CONTROLLED (<130/80) [facility] Start: 02-08-2023 BP CONTROLLED (<130/80) BP CONTROLLED (<130/80) [facility] Start: 01-18-2023 BP CONTROLLED (<130/80) BP CONTROLLED (<130/80) [facility] Start: 11-06-2022 DEPRESSION ASSESSMENT DEPRESSION ASSESSMENT [facility] Start: 09-22-2022 [facility] Start: 08-02-2022 End: 08-25-2023 Ct abdomen & pelvis w/contrast material CT ABD/PEL W IVCON Radiology Routine Periumbilical abdominal pain Expected: 08/02/2022, Expires: 08/25/2023 [facility] Work Phone: Comment on above: Expected: 08/02/2022, Expires: 3 Start: 07-07-2022 Influenza vaccination [facility] Start: 06-28-2022 Mammography [facility] Start: 2022 Administration of varicella zoster vaccine Zoster (Shingles) Vaccine (1 of 2) [facility] Start: 2022 COVID-19 VACCINE (4 - Booster for Pfizer series) COVID-19 VACCINE (4 - Booster for Pfizer series) [facility] Start: 2022 SHINGRIX VACCINE (1 of 2) SHINGRIX VACCINE (1 of 2) [facility] Start: 2022 Zoster vaccine hzv live for subcutaneous use ZOSTER (SHINGLES) VACCINE (1 of 2) [facility] Start: 04-01-2022 End: 06-01-2022 CBC W Auto Differential panel - Blood CBC + DIFF Lab Routine Follow-up examination after colorectal surgery Expected: 04/01/2022, Expires: 06/01/2022 [facility] Work Phone: Comment on above: Expected: 04/01/2022, Expires: 2 Start: 04-01-2022 End: 06-01-2022 Comprehensive metabolic 2000 panel - Serum or Plasma COMP METABOLIC PANEL Lab Routine Follow-up examination after colorectal surgery Expected: 04/01/2022, Expires: 06/01/2022 [facility] Work Phone: Comment on above: Expected: 04/01/2022, Expires: 2 Start: 04-01-2022 End: 06-01-2022 TYPE AND SCREEN,30 DAY TYPE AND SCREEN,30 DAY Blood Bank Routine Follow-up examination after colorectal surgery Expected: 04/01/2022, Expires: 06/01/2022 [facility] Work Phone: Comment on above: Expected: 04/01/2022, Expires: 2 Start: 01-19-2022 COVID-19 VACCINE (4 - Booster for Pfizer series) COVID-19 VACCINE (4 - Booster for Pfizer series) [facility] Start: 01-19-2022 COVID-19 VACCINE (4 - Pfizer series) COVID-19 VACCINE (4 - Pfizer series) [facility] Start: 11-06-2021 DEPRESSION ASSESSMENT DEPRESSION ASSESSMENT [facility] Start: 07-07-2021 Influenza vaccination INFLUENZA (#1) [facility] Start: 03-24-2021 Screening for malignant neoplasm of colon COLORECTAL CANCER SCREENING DISCUSSION [facility] Start: 04-05-2020 Screening for malignant neoplasm of breast MAMMOGRAM SCREENING DISCUSSION [facility] Start: 2017 COLOGUARD (FIT-DNA) COLOGUARD (FIT-DNA) [facility] Start: 2017 Colonoscopy COLONOSCOPY [facility] Start: 2017 COLORECTAL CANCER SCREENING COLORECTAL CANCER SCREENING [facility] Start: [address] COLONOGRAPHY [facility] Start: 2017 FECAL OCCULT BLOOD FECAL OCCULT BLOOD [facility] Start: 2017 LIPID SCREEN LIPID SCREEN [facility] Start: 2017 Screening for malignant neoplasm of colon [facility] Start: 2017 SIGMOIDOSCOPY SIGMOIDOSCOPY [facility] Start: 2012 Lipid panel LIPID SCREENING [facility] Start: 2012 Mammography MAMMOGRAM [facility] Start: 10-11-2008 Hepatitis B vaccination HEP B VACCINE (3 of 3 - 19+ 3-dose series) [facility] Start: 10-11-2008 Hepatitis B Vaccine (3 of 3 - 19+ 3-dose series) Hepatitis B Vaccine (3 of 3 - 19+ 3-dose series) [facility] Start: 2002 HPV TESTING HPV TESTING [facility] Start: 2002 Screening for malignant neoplasm of cervix HPV Testing [facility] Start: 1993 PAP TESTING PAP TESTING [facility] Start: 1993 Screening for malignant neoplasm of cervix [facility] Start: 1991 [facility] Start: 1990 Adult BMI Follow Up Plan Adult BMI Follow Up Plan [facility] Start: 1990 ANNUAL PCP TEAM CHRONIC DISEASE VISIT ANNUAL PCP TEAM CHRONIC DISEASE VISIT [facility] Start: 1990 ANNUAL WELLNESS VISIT ANNUAL WELLNESS VISIT [facility] Start: 1990 Anxiety Screening Anxiety Screening [facility] Start: 1990 BP CONTROLLED (<130/80) BP CONTROLLED (<130/80) [facility] Start: 1990 Depression Screening Depression Screening [facility] Start: 1990 HEPATITIS C SCREENING HEPATITIS C SCREENING [facility] Start: 1990 Hepatitis C screening Hepatitis C Screening [facility] Start: 1990 HIV SCREENING HIV SCREENING [facility] Start: 1990 HIV screening HIV Screening [facility] Start: 1987 HIV screening HIV SCREENING DISCUSSION [facility] Start: 1984 Adult depression screening assessment DEPRESSION SCREENING [facility] Start: 1984 Depression screening using PHQ-9 (Patient Health Questionnaire 9) score DEPRESSION SCREENING [facility] Start: 1978 PNEUMOCOCCAL (1 - PCV) PNEUMOCOCCAL (1 - PCV) [facility] Start: 1978 Pneumococcal vaccination Pneumococcal Vaccine (1 - PCV) [facility] Start: 1972 HEPATITIS B (1 of 3 - 3-dose series) HEPATITIS B (1 of 3 - 3-dose series) [facility] Start: 1972 Hepatitis B Vaccine (1 of 3 - 3-dose series) Hepatitis B Vaccine (1 of 3 - 3-dose series) [facility] Start: 1972 Hepatitis C screening HEPATITIS C VIRUS SCREENING [facility] Start: 1972 HPV/COTEST HPV/COTEST [facility] Start: 1972 Screening for malignant neoplasm of cervix [facility] 12 lead ECG EKG 12 lead ECG [facility] 08/12/2023 12:28 AM EDT [facility] Work Phone: 24 hour urine measurement [facility] Albumin [Mass/volume ] in Serum or Plasma [facility] Albumin/Globulin ratio [facility] Chromatin Ab [Units/ volume] in Serum or Plasma [facility] Complement C3 [Mass/ volume] in Serum or Plasma [facility] Complement C4 [Mass/ volume] in Serum or Plasma [facility] CT Abdomen and Pelvi s W contrast IV CT Abdomen / Pelvis With IV Contrast ONLY Imaging STAT 08/12/2023 5:42 AM EDT Work Market [facility] End: 01-12-2024 EGD - THERAPEUTIC, EUS, OR TUBE INTERVENTIONS EGD - THERAPEUTIC, EUS, OR TUBE INTERVENTIONS Endoscopy Routine Gastroparesis 1 Occurrences starting 01/11/2023 until 01/12/2024 [facility] Work Phone: Comment on above: 1 Occurrences starting 01/11/2023 until 01/12/2024 End: 06-06-2026 EGD w/ Dilation EGD w/ Dilation GI Routine Esophageal dysphagia 1 Occurrences starting 06/06/2025 until 06/06/2026 [facility] Work Phone: Comment on above: 1 Occurrences starting 06/06/2025 until 06/06/2026 Electromyography [facility] Electrophoresis: [id number] [facility] Electrophoresis: [id number] [facility] Electrophoresis: beta-globulin [facility] Electrophoresis: jenifer ma globulin [facility] FAT, FECAL QUAL FAT, FECAL QUAL Lab Routine Diarrhea due to malabsorption Ordered: 03/15/2023 [facility] Work Phone: Comment on above: Ordered: 03/15/2023 End: 10-11-2023 Gi transit & pres ravinder wireless capsule w/interp CAPSULE ENDOSCOPY SMART Endoscopy Routine Gastroparesis 1 Occurrences starting 10/11/2022 until 10/11/2023 [facility] Work Phone: Comment on above: 1 Occurrences starting 10/11/2022 until 10/11/2023 Globulin [Mass/volum e] in Serum [facility] Homogenous nuclear A b pattern [Titer] in Serum [facility] Hydrogen breath test HYDROGEN (H 2) BREATH TEST GI/Bronch Routine Chronic abdominal pain Bloating Ordered: 08/09/2024 [facility] Comment on above: Ordered: 08/09/2024 IgA [Mass/volume] in Serum or Plasma [facility] IgG [Mass/volume] in Serum or Plasma [facility] IgM [Mass/volume] in Serum or Plasma [facility] IGP,rfxAptima HPV all,16/18,45 IGP,rfxAptima HPV all,16/18,45 Pathology and Cytology Routine Encounter for Papanicolaou smear of vagina Ordered: 06/24/2025 [facility] Work Phone: Comment on above: Ordered: 06/24/2025 Immunofixation for Urine [facility] Lupus anticoagulant [Interpretation] in Platelet poor plasma [facility] Measurement of monoc lonal protein concentration [facility] MR Cervical spine WO contrast [facility] Myoglobin [Mass/volu me] in Serum or Plasma [facility] Nuclear Ab [Titer] in Serum [facility] End: 12-17-2023 PAP TITRATION PSG (CPAP, BIPAP, ASV) PAP TITRATION PSG (CPAP, BIPAP, ASV) Procedures Routine CHUCKIE (obstructive sleep apnea) 1 Occurrences starting 11/17/2022 until 12/17/2023 [facility] [facility] Work Phone: Comment on above: 1 Occurrences starting 11/17/2022 until 12/17/2023 Patient Education [facility] Work Phone: Patient referral [facility] Work Phone: Protein [Mass/volume ] in Serum or Plasma [facility] Protein [Mass/volume ] in Urine [facility] Reagin Ab [Presence] in Serum by RPR [facility] SARS-CoV-2 (COVID-19 ) RNA [Presence] in Respiratory specimen by JOSÉ MIGUEL with probe detection SELF CHECK COVID Microbiology Routine Follow-up examination after colorectal surgery Ordered: 02/09/2022 [facility] Work Phone: Comment on above: Ordered: 02/09/2022 Serum immunofixation [facility] End: 11-30-2023 SIGMOIDOSCOPY SIGMOIDOSCOPY Endoscopy Routine Chronic idiopathic constipation 1 Occurrences starting 11/30/2022 until 11/30/2023 [facility] Work Phone: Comment on above: 1 Occurrences starting 11/30/2022 until 11/30/2023 SURG PATH REQUEST [facility] Comment on above: Release Upon Ordering for 1 Occurrences starting 04/12/2024, 1 completed Thrombin time [facility] Thyroglobulin Ab [Units/volume] in Serum or Plasma [facility] Thyroperoxidase Ab [Units/volume] in Serum or Plasma [facility] End: 08-12-2023 Troponin I.cardiac [Mass/volume] in Serum or Plasma Troponin I (One time) Lab Timed Once for 1 Occurrences starting 08/12/2023 until 08/12/2023 [facility] Work Phone: Comment on above: Once for 1 Occurrences starting 08/12/20 until 08/12/2023 URODYNAMICS [facility] Procedures Routine Incomplete bladder emptying Urinary urgency Urinary frequency Nocturia Ordered: 07/31/2023 [facility] Work Phone: Comment on above: Ordered: 07/31/2023 XR Shoulder - bilateral Views [facility] Immunizations Immunization Date Immunization Notes Care Provider Fa [facility] 12-11-2024 influenza virus vaccine, unspecified formulation Joanna [facility] 07-01-2024 influenza, injectabl e, madin shaneka canine kidney, preservative free Eliceo Gómez DO Work Phone: [facility] 05-21-2024 Hepatitis B vaccine (recombinant), CpG adjuvanted Sidney Amezquita DPM Work Phone: [facility] 05-21-2024 meningococcal oligosaccharide (groups A, C, Y and W-135) diphtheria toxoid conjugate vaccine (MCV4O) Sidney MERCADOM Work Phone: [facility] 04-05-2024 zoster vaccine recombinant Sidney Amezquita DPM Work Phone: [facility] 04-05-2024 zoster vaccine, unspecified formulation Milagros Franco MD, PhD Work Phone: [facility] 12-21-2023 Influenza, injectabl e, Madin Shaneka Canine Kidney, preservative free, quadrivalent Sidney Amezquita DPM Work Phone: [facility] 12-21-2023 influenza virus vaccine, unspecified formulation [facility] 08-17-2022 influenza, injectabl e, quadrivalent, preservative free Sidney Amezquita DPM Work Phone: [facility] 08-17-2022 influenza virus vaccine, unspecified formulation Nelsy Chávez APRN.AIR TUCKER Work Phone: [facility] 11-24-2021 Pfizer-BioNTech COVID-19 Vacc 30 MCG/0.3ML Intramuscular Suspension Eliceo Gómez Work Phone: [facility] [employer] DO Work Phone: 08-19-2021 KENALOG - 10 mg Ericahero keys Other [employer] Other 05-11-2021 Pfizer-BioNTech COVID-19 Vacc 30 MCG/0.3ML Intramuscular Suspension Eliceo Gómez Work Phone: [facility] [employer] DO Work Phone: 05-10-2021 Pfizer Purple Cap SARS-CoV-2 Vaccination Sidney Amezquita DPM Work Phone: [facility] 04-20-2021 Pfizer-BioNTech COVID-19 Vacc 30 MCG/0.3ML Intramuscular Suspension Eliceo Gómez Work Phone: [facility] [employer] DO Work Phone: 04-19-2021 Pfizer Purple Cap SARS-CoV-2 Vaccination Sidney Amezquita DPM Work Phone: [facility] 09-02-2020 influenza, injectabl e, quadrivalent, preservative free Eliceo Gómez Work Phone: [facility] [employer] 250 DO Work Phone: 08-06-2020 influenza, injectabl e, quadrivalent, preservative free Eliceo Gómez Work Phone: [facility] 06-22-2020 tetanus toxoid, redu nayeli diphtheria toxoid, and acellular pertussis vaccine, adsorbed Eliceo Gómez Work Phone: [facility] [employer] DO Work Phone: 02-01-2020 Toradol per 15 mg Beto turpin Other [employer] Other 08-20-2019 influenza, injectabl e, quadrivalent, preservative free Sidney Amezquita DPM Work Phone: [facility] 07-15-2018 influenza, seasonal, injectable, preservative free Eliceo Gómez Work Phone: [facility] [employer] DO Work Phone: 07-14-2016 Rocephin 500 mg Beto ellis Other [employer] Other 05-12-2008 hepatitis B vaccine, adult dosage Eliceo Gómez Work Phone: [facility] [employer] DO Work Phone: 04-11-2008 hepatitis B vaccine, adult dosage Eliceo Gómez Work Phone: [facility] [employer] DO Work Phone: Payers Date Payer Category Payer Commercial Managed Care - O PARAMOUNT [id number] 2024 [facility] Care O (unspecified) [facility] Address: [address] [address] [id number] [id number] 2024 Unknown [id number] 2024 Medicare HMO [employer] MEDICARE [id number]. [id number] 2024 Medicare [id number] 2024 Self-pay [id number] 2024 Medicare 1.2.840.572612. 1.13.172. 2.7.3.127322.315 2024 Medicare (Managed Care) 1.2.840.001157.1.13.693. [id number] 2024 Medicare [id number] 2024 Private Health Insurance [id number] 2024 Private Health Insurance [id number]. [id number] 2024 Unknown 2022 Medicaid O [place] MEDICAID [id number]. [id number] 2021 Medicaid PARAMOUNT MEDICA ID PARAMOUNT ADVANTAGE MEDICAID [id number] 2021-Present [phone] [address] [place] [address] Medicaid [id number] 1.2.840.273007.1.13.159. 2.7.3.183213.315 2019 Medicaid 1.2.840.016066. 1.13.159. 2.7.3.849719.315 1972 Unknown [id number] 2.16.840.1.923580.3.579. 2.176 1972 Unknown [id number] 2.16.840.1.530665.3.579. 2.593 1972 Unknown [id number] 2.16.840.1.190936.3.579. 2.593 1972 Unknown [id number] 2.16.840.1.147695.3.579. 2.593 1972 Unknown [id number] 2.16.840.1.102883.3.579. 2.593 1972 Unknown [id number] 2.16.840.1.984910.3.579. 2.593 1972 Unknown [id number] 2.16.840.1.236339.3.579. 2.593 1972 Unknown [id number] 2.16.840.1.735238.3.579. 2.593 1972 Unknown [id number] 2.16.840.1.835989.3.579. 2.593 1972 Unknown [id number] 2.16.840.1.175760.3.579. 2.59 1972 Unknown [id number] 2.16.840.1.863103.3.579. 2.593 1972 Unknown [id number] 2.16.840.1.242827.3.579. 2.593 1972 Unknown [id number] 2.16.840.1.953849.3.579. 2.593 1972 Unknown [id number] 2.16.840.1.619155.3.579. 2.593 1972 Unknown [id number] 2.16.840.1.081780.3.579. 2.593 1972 Unknown [id number] 2.16.840.1.033320.3.579. 2.593 1972 Unknown [id number] 2.16.840.1.976577.3.579. 2.593 1972 Unknown [id number] 2.16.840.1.180365.3.579. 2.593 1972 Unknown [id number] 2.16.840.1.959113.3.579. 2.297 1972 Unknown [id number] 2.16840.1.897919.3.579. 2.297 1972 Unknown [id number] 2.16.840.1.479800.3.579. 2.356 1972 Unknown [id number] 2.840.1.232405.3.579. 2.356 1972 Unknown [id number] 2.840.1.028921.3.579. 2.356 1972 Unknown [id number] 2.840.1.378097.3.579. 2.1286 1972 Unknown [id number] 2.840.1.245210.3.579. 2.594 1972 Unknown [id number] 2.840.1.383552.3.579. 2.594 1972 Unknown [id number] 2.840.1.879163.3.579. 2.594 1972 Unknown [id number] 2.840.1.468463.3.579. 2.594 1972 Unknown [id number] 2.840.1.464169.3.579. 2.594 1972 Unknown [id number] 2.840.1.383932.3.579. 2.594 1972 Unknown [id number] 2.840.1.469175.3.579. 2.594 1972 Unknown [id number] 2.840.1.729368.3.579. 2.594 1972 Unknown [id number] 2.840.1.402859.3.579. 2.594 1972 Unknown [id number] 2.840.1.775898.3.579. 2.594 1972 Unknown [id number] 2.16840.1.127460.3.579. 2.1286 1972 Unknown [id number] 2.16.840.1.190705.3.579. 2.1285 1972 Unknown [id number] 2.16.840.1.856338.3.579. 2.1285 1972 Unknown [id number] 2.16840.1.065156.3.579. 2. 1972 Unknown [id number] 2.16.840.1.893446.3.579. 2. 1972 Unknown [id number] 2.16840.1.047110.3.579. 2. 1972 Unknown [id number] 2.16840.1.368594.3.579. 2. 1972 Unknown [id number] 2.840.1.234533.3.579. 2. 1972 Unknown [id number] 2.16840.1.653116.3.579. 2. 1972 Unknown [id number] 2.16840.1.332672.3.579. 2. 1972 Unknown [id number] 2.16840.1.915223.3.579. 2. 1972 Unknown [id number] 2.840.1.417724.3.579. 2. 1972 Unknown [id number] 2.16840.1.243753.3.579. 2.9 1972 Unknown [id number] 2.16840.1.330679.3.579. 2.1258 1972 Unknown [id number] 2.16840.1.948040.3.579. 2.1258 1972 Unknown [id number] 2.16840.1.085526.3.579. 2.1258 1972 Unknown [id number] 2.16.840.1.829774.3.579. 2.1258 1972 Unknown [id number] 2.16840.1.174357.3.579. 2.1258 1972 Unknown [id number] 2.16.840.1.102911.3.579. 2.1258 1972 Unknown [id number] 2.16840.1.124834.3.579. 2.1258 1972 Unknown [id number] 2.16840.1.290235.3.579. 2.1258 1972 Unknown [id number] 2.840.1.573667.3.579. 2.1258 1972 Unknown [id number] 2.840.1.300093.3.579. 2.1258 1972 Unknown [id number] 2.840.1.483781.3.579. 2.1258 1972 Unknown [id number] 2.840.1.893056.3.579. 2.1258 1972 Unknown [id number] 2.840.1.679754.3.579. 2.1258 1972 Unknown [id number] 2.16840.1.342273.3.579. 2.1258 1972 Unknown [id number] 2.840.1.342003.3.579. 2.1258 1972 Unknown [id number] 2.840.1.184717.3.579. 2.1258 1972 Unknown [id number] 2.16840.1.382980.3.579. 2.1258 1972 Unknown [id number] 2.16840.1.597366.3.579. 2.1285 1972 Unknown [id number] 2.16840.1.357928.3.579. 2.1286 1959 Medicaid [id number] 1959 Unknown [id number] Unknown [facility] [id number] Unknown [id number] 2.16.840.1.123753.3.579. 2.531 Unknown [id number] 2.16.840.1.262531.3.579. 2.531 Unknown [id number] 2.16.840.1.226534.3.579. 2.531 Unknown [id number] 2.16.840.1.422053.3.579. 2.531 Unknown [id number] 2.16.840.1.683599.3.579. 2.531 Unknown [id number] 2.16.840.1.915730.3.579. 2.531 Unknown [id number] 2.16.840.1.018153.3.579. 2.531 Unknown [id number] 2.16.840.1.691152.3.579. 2.531 Unknown [id number] 2.16.840.1.670341.3.579. 2.531 Unknown [id number] 2.16.840.1.145102.3.579. 2.531 Social History Date Type Detail Facility Start: 10-08-2020 End: 10-24-[address] [facility] Never smoked tobacco [facility] Start: 10-08-2020 End: 04-04-2023 Tobacco use and exposure Smokeless tobacco non-user [facility] Start: 01-04-2022 End: 06-24-2025 Alcohol intake Lifetime non-drinker (finding) [facility] Start: 10-08-2020 History SDOH Alcohol Frequency 1 [facility] Start: 1970 Sex Assigned At Female [facility] Start: 08-30-2020 End: 07-26-2022 Exposure to SARS-CoV-2 (event) Not sure [facility] Start: 10-08-2020 End: 06-04-2025 Sex Assigned At [facility] Start: 10-08-2020 End: 06-04-2025 No alcohol use No alcohol use [facility] Comment on above: 3 TEA WEEK; How often to you hav e a drink containing alcohol? Never [facility] Average Number of Drinks Not on file [facility] Start: 07-28-2020 Gender identity Identifies as female gender (finding) [facility] Start: 07-03-2021 Sexual orientation Heterosexual (fin ding) [facility] Start: 06-05-2023 End: 06-05-2023 Tobacco smoking status NHIS Smoker (finding) [facility] Start: 1970 Sex Assigned At Not on file [facility] Tobacco smoking stat [facility] Tobacco smoking consumption unknown [facility] Within the last year , [...] Start: 06-11-2015 End: 09-16-2024 Sex Female (finding) [facility] Start: 01-18-2024 End: 06-06-2025 Alcoholic beverage intake Ex-drinker (finding) [facility] How hard is it for y ou [...] Equipment Original Text Equipment Identifier Dates Fibertak Hull Self-Punching Knotless 2.6mm W/No 5 Suture [id number] Start: 10-14-2020 Fibertak Hull Knotless 2.6mm [id number] Start: 10-14-2020 Hull Swivelock C 4.75mm Biocomposite Peek 19.1mm Suture Closed Eyelet - [id number] Start: 10-14-2020 Sling Gynecare T vt Exact Gynecological Stress Urinary Incontinence - [id number]_[facility] Start: 12-24-2021 DISC CERVICAL 13 X15X5H MOBI-C FDA Start: 09-20-2017 DISC CERVICAL 13 X15X5H MOBI-C FDA Start: 09-20-2017 DISC CERVICAL 13 X15X5H MOBI-C FDA Start: 09-20-2017 DISC CERVICAL 13 X15X5H MOBI-C FDA Start: 09-20-2017 DISC CERVICAL 13 X15X5H MOBI-C FDA Start: 09-20-2017 Lead Intrstim Mr i 28cm - [id number]_[facility] Start: 01-26-2024 Interstim X Rech arge Free Neurostimulator - [id number]_[facility] Start: 01-26-2024 DISC CERVICAL 13 X15X5H MOBI-C FDA Start: 09-20-2017 DISC CERVICAL 13 X15X5H MOBI-C FDA Start: 09-20-2017 DISC CERVICAL 13 X15X5H MOBI-C FDA Start: 09-20-2017 DISC CERVICAL 13 X15X5H MOBI-C FDA Start: 09-20-2017 DISC CERVICAL 13 X15X5H MOBI-C FDA Start: 09-20-2017 DISC CERVICAL 13 X15X5H MOBI-C FDA Start: 09-20-2017 Generator Nrstm - [id number] Start: 01-02-2024 Lead Ns Respirat ory - [id number] Start: 01-02-2024 Lead Nrstm Inspr 3 Elect Cuf Tnl Boni Strl Lf - [id number] - [id number] Start: 01-02-2024 DISC CERVICAL 13 X15X5H [...] 06/24/20 8:59 AM EDT Nida Toro MA [facility] 06-24-2025 Patient Health Quest ionnaire 2 item (PHQ-2) [Reported] [facility] 06-06-2025 Patient Health Quest ionnaire 2 item (PHQ-2) [Reported] [facility] Clinical Notes 10-27-2020 to 06-24-2025 Wendy Colon [...] Acevedo, Obstetrics and Gynecology Mary Leal 1970 06/24/25 [id number] Yearly Wellness Exam Chief Complaint Patient presents [...] reconstruction FOOT TENDON SURGERY 11/13/2023 HYSTERECTOMY 2015 [facility] BS INTRAUTERINE DEVICE INSERTION 2013 Mirena [...] costovertebral angle tenderness, no obvious scoliosis/kyphosis. 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 documented in this encounter [facility] 06-06-2025 History of Presen t illness Narrative [...] the patient today documented in this encounter [facility] 06-06-2025 History of Presen t illness Narrative [facility] Digestive [facility] Initial Gastroenterology/Hepatology Consultation Note IDENTIFYING DATA PATIENT: Mary Leal TIME OF EVALUATION: 06/06/2025 9:47 AM Reason for Consult: Gastroparesis, diarrhea and flatulence. Requesting Physician: ELICEO GÓMEZ JR, DO HISTORY OF PRESENT ILLNESS Mary Leal is a 55 y.o. female who has a past medical history of ADD (attention deficit disorder), Allergic rhinitis (11/16/2015), Anxiety, Asthma, Atopic dermatitis (04/09/2020), Basal cell carcinoma (BCC) of chest (04/04/2023), Bipolar disorder ([facility]), Chronic interstitial cystitis (04/06/2023), Chronic sinusitis (07/07/2022), [...] office visit from this past October, from [facility] where she is seen for bloating, chronic [...] either. GI HISTORY SUMMARY TABLE Last EGD 2022, 2019 Last colonoscopy PAST MEDICAL, SURGICAL, FAMILY, [...] 03/20/2020 Performed by Alberto Solis MD at [facility] ENDOSCOPY EGD, DILATATION N/A 09/25/2020 Performed by Alberto Solis MD at [facility] ENDOSCOPY ENDOSCOPIC DIAGNOSTIC DRUG INDUCED SLEEP Bilateral 09/19/2023 Performed by Cullen Dawkins MD at [facility] FOOT SURGERY 06/25/2020 left foot surgery FOOT SURGERY Right 10/2022 and 05/2023 HYSTERECTOMY 2015 INSERTION STIMULATOR NERVE HYPOGLOSSAL Right 01/02/2024 Performed by Cullen Dawkins MD at [facility] LASER LINGUAL TONISILLECTOMY Circumferential 07/08/2021 Performed by Alexei Avila MD PhD at [facility] MRI FOOT LEFT NECK SURGERY 2017 PLANTAR FASCIECTOMY RELEASE PHARYNGEAL SCAR CPT 35460 Circumferential 07/08/2021 Performed by Alexei Avila MD PhD at [facility] RESECTION SUBMUCOSAL NASAL Bilateral 02/11/2021 Performed by Alexei Avila MD PhD at [facility] ROTATOR CUFF REPAIR Right SEPTOPLASTY Circumferential 02/11/2021 Performed by Alexei Avila MD PhD at [facility] TONSILLECTOMY Bilateral 02/11/2021 Performed by Alexei Avila MD PhD at [facility] TOTAL COLECTOMY 03/2022 uvuloplasty N/A 02/11/2021 Performed by Alexei Avila MD PhD at [facility] Family History Problem Relation Age of [...] mouth every other day., Disp: , Rfl: tfycnrfustw-abgkdkyiq-bgvohmph (TRELEGY ELLIPTA) 100-62.5-25 mcg blister with device, [...] drops drops, , Disp: , Rfl: fremanezumab-vfrm (AJOVY AUTOINJECTOR) 225 mg/1.5 mL, inject [...] mg, 2.5 mg, nebulization, PRN, Gwendolyn Stroud, DANN-AIR TUCKER PRNs: albuterol, 2.5 mg, PRN REVIEW OF [...] VITAMIN B12: Lab Results Component Value Date [id number] 05/13/2025 FOLATE: Lab Results Component Value [...] of Mary Leal. Alberto Solis MD, [place] [address] PH: [phone] documented in this encounter [facility] 06-04-2025 Miscellaneous Notes Formattin g of this note might be different from the original. Vacuum Pan Tender received a call from the patient regarding test results. Patient would like a call [facility] to discuss lab results please. Please advise. Contact natividad Hernandez [phone]. Thank you so much. Lab results were [...] daily. She should also be taking regular daam-ktt-lapjkgy vitamin-D supplement every day. Did she have her EMG results sent to us? Thank you RN called and left VM for patient advising on results and recommendations. Also advised that we have been unsuccessful in getting EMG results if she could reach out to that office to get them faxed to our office. documented in this encounter [facility] 06-04-2025 Telephone encount er Note Vacuum Pan Tender received a call from the patient regarding test results. Patient would like a call k to discuss lab results please. Please advise. Contact natividad Hernandez [phone]. Thank you so much. [facility] 06-04-2025 Telephone encount er Note Lab results [...] daily. She should also be taking regular lmko-tuk-ocyzgmm vitamin-D supplement every day. Did she have her EMG results sent to us? Thank you [facility] 06-04-2025 Telephone encount er Note RN called and left VM for patient advising on results and recommendations. Also advised that we have been unsuccessful in getting EMG results if she could reach out to that office to get them faxed to our office. [facility] [employer] [facility] 04-30-2025 Evaluation note Diagnosis Onset Date Resolution Lumbar radiculopathy acute April 30, 2025 3:53pm Polyneuropathy acute April 30, 2025 3:53pm [facility] Work Phone: 1(289) 720-842104-21-2025 Telephone encounter Note* Telephone Encounter - Rosmery Horan - 02/24/2025 2:49 PM EDT Pt would like to know if WDB can increase her Estradiol dose because she is having more hot flashesduring the daytime. She takes the medication in the mornings. Please [phone] Miscellaneous Notes* Telephone Encounter - Rosmery Horan - 02/24/2025 2:49 PM EDT Pt would like to know if [facility]DB can increase her Estradiol dose because she is having more hot flashesduring the daytime. She takes the medication in the mornings. Please contact documented in this encounterFre[facility] Sports [id number] Miscellaneous Notes* Telephone Encounter - Demi Machado - 12/10/2024 4:16 PM EST Received call today 12/10/24 4:20 Medication Refill request: Medication Name and Strength: Emgality pen injector 120 mg Current dose & Frequency: Patient stated that provider sends 2 scripts of 120 mg for a total of240 mg actually taking - not what is listed on the prescription label 30 day or 90 day supply preferred: 30 day [facility] [place] If already on preferred pharmacy list - [...] office about this. Patient's callback# if needed: [phone]. Patient stated she no longer has [place] and now has the following (informed patient we don't have this on our covered/non-covered list so I provided her with our tax ID# to check with insurance): Insurance Name: [employer] Medicare Dual Complete ID#: [id number] Grp#: [id number] RxGrp#: [id number] RxBIN#: [id number] RxPCN#: [id number] Provider Service Line phone#: [phone] * Telephone Encounter - Kim Acharya RN - 12/10/2024 4:16 PM EST Refill request for Emgality 120mg/ml verified in refill encounter 05/14/24. Pended to Dr. Christensen for review and signature Start date from last refill: 05/15/24 Next follow up: not yet scheduled [facility] Tele[facility] encounter Note* Telephone Encounter - Demi Machado - 12/10/2024 4:16 PM EST Received call today 12/10/24 4:20 Medication Refill request: Medication Name and Strength: Emgality pen injector 120 mg Current dose & Frequency: Patient stated that provider sends 2 scripts of 120 mg for a total of240 mg actually taking - not what is [...] office about this. Patient's callback# if needed: [phone]. Patient stated she no longer has [place] and now has the following (informed patient we don't have this on our covered/non-covered list so I provided her with our tax ID# to check with insurance): Insurance Name: [employer] Medicare Dual Complete ID#: [id number] Grp#: [id number] RxGrp#: [id number] RxBIN#: [id number] RxPCN#: [id number] Provider Service Line phone#: [phone] [facility]02-04-2025 Telephone encounter Note* Telephone Encounter - Kim Acharya RN - 12/10/2024 4:16 PM EST Refill request for Emgality 120mg/ml verified in refill encounter 05/14/24. Pended to Dr. Christensen for review and signature Start date from last refill: 05/15/24 Next follow up: not yet scheduled [facility]01-15-2025 Evaluation note* Diagnosis Onset Date Resolution Status Admit Date Cervical radiculopathy acute [facility] 2024 1:13pm [facility] Work Phone: 1(619) 416-132401-14-2025 History of Present illness Narrative* Nelsy Snyder, DANN-AIR TUCKER - 11/19/2024 8:30 AM EST Skin Check [...] 1 year, skin check documented in this encounterFreeman [facility] [id number] Nuclear medicine Diagnostic study [facility] [place] [address] Nuclear Medicine Report Signed Patient: Mary Leal MR#: [id number] : 1970 Acct:[id number] Age/Sex: 54 / F ADM Date: 5 Loc: [place] Room: Type: [facility] Attending Dr: Padmaja Llamas MD Copies to: Quinton Melendez Jr, DO Padmaja Llamas MD~ Ordering Provider: Padmaja Llamas MD Date of Service: 11/14/24 NM/NE gastric emptying study: R14.0 K31.84 GASTRIC EMPTYING [...] 1:54 PM Dictation Location: RADIO-PC-19 Transcribed By: PWS 11/14/24 1354 Dictated By: Quinton Melendez Jr, DO 11/14/24 1354 Signed By: 11/14/24 1354 [facility]01-07-2025 History of Present illness Narrative * [...] to the clinic 19 days 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 Eating a regular diet with difficulty. [...] Review Audit Reviewed by Nida Toro MA (Security Agent) on 11/12/24 at 0827 Medication Order Taking? Sig Documenting Provider Last Dose Status Lolis Maintena 300 MG injection syringe [id number] inject INTRAMUSCULARLY ONCE A MONTH (BRING TO OFFICE FOR PROVIDER TO ADMINISTER) Active albuterol HFA 90 mcg/act inhaler [id number] Inhale 2 puffs every 4 (four) hours if needed for wheezing Eliceo Gómez DO 10/19/24 1207 atenolol (Tenormin) 50 MG tablet [id number] Take 1 tablet (50 mg) by mouth Daily Eliceo Gómez DO Active cholecalciferol (Vitamin D-3) 125 MCG (5000 UT) capsule [id number] Take 125 mcg by mouth Daily Dipti Acevedo DO Active colestipol (Colestid) 1 g tablet [id number] Take 1 g by mouth in the morning and 1 g in the evening. Dipti Acevedo DO Active Daridorexant HCl (Quviviq) 50 MG tablet [id number] Take 50 mg by mouth at bedtime Eliceo Gómez DOActive estradiol (Estrace) 0.1 MG/GM vaginal cream [id number] APPLY 0.5G VAGINALLY TWICE WEEKLY. Dipti Acevedo DO Active estradiol (Estrace) 1 MG tablet [id number] Take 1 tablet (1 mg) by mouth Daily Dipti Acevedo DO Active ferrous sulfate 325 (65 Fe) MG tablet [id number] Take 325 mg by mouth every other day Ron King NP Active fluvoxaMINE (Luvox) 50 MG tablet [id number] Take 50 mg by mouth at bedtime Dipti Acevedo DO Active galcanezumab (Emgality) 120 MG/ML auto-injector [id number] Inject 120 mg under the skin every 30 (thirty) days Dipti Acevedo DO Active L-Theanine 200 MG capsule [id number] Take 1 capsule by mouth Daily Adriana Cruz MD Active losartan (Cozaar) 25 MG tablet [id number] Take 1 tablet (25 mg) by mouth Daily Eliceo Gómez DO Active methylphenidate ER (Concerta) 54 MG CR tablet [id number] Take 54 mg by mouth Daily Eliceo Gómez DO Active mirabegron ER (Myrbetriq) 50 MG 24 hr tablet [id number] Take 1 tablet (50 mg) by mouth at bedtime Do not crush, chew, or split. Dipti Acevedo DO Active Multiple Vitamin (Daily-Elisa Multivitamin) tablet [id number] Yes Take 1 tablet by mouth Daily Melina Acevedo, DO Active omeprazole (PriLOSEC) [address] capsule [id number] Take 40 mg by mouth in the morning. Active Quviviq 25 MG tablet [id number] TAKE 1 TABLET BY MOUTH BEDTIME ( NEEDED) FOR SLEEP Dipti Acevedo DO Active rOPINIRole (Requip) 1 MG tablet [id number] Take 1 tablet (1 mg) by mouth in the morning. Eliceo Gómez DO Active rOPINIRole (Requip) 2 MG tablet [id number] Take 1 tablet (2 mg) by mouth at bedtime Eliceo Gómez DO Active Trelegy Ellipta 100-62.5-25 MCG/ACT aerosol powder [id number] INHALE 1 PUFF BY MOUTH DAILY Eliceo Gómez DO Active triamcinolone (Kenalog) 0.1 % cream [id number] Apply topically 2 (two) times a day Dipti Acevedo DO Active Past Medical History: Diagnosis Date ADHD (attention deficit hyperactivity disorder) ([facility]) 1994 Asthma ([facility]) Basal cell carcinoma right chest Colon polyp Compressed cervical disc Cystocele 2021 Depression (CMS/HCC) Difficulty walking 05/12/23 Eczema 2022 Endometriosis 2014 Fissure, anal Gastroparesis GERD (gastroesophageal reflux disease) 1994 Hormone disorder 2018 Hypertension (CMS/HCC) 2000 Migraine (CMS/HCC) OCD (obsessive compulsive disorder) (CMS/[facility]) Panic attack (CMS/[facility]) 04/28 Rectocele 2021 RLS (restless legs syndrome) [...] reconstruction FOOT TENDON SURGERY 11/13/2023 HYSTERECTOMY 2014 [facility] BS INTRAUTERINE DEVICE INSERTION 2013 Mirena [...] and rhythm Lungs: b/l clear Female genitalia: 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 documented in this encounterFreeman Orthopaedics & Sports [id number] History of Present illness Narrative* Wendy Colon [...] to the clinic 4 days 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 Eating a regular diet without difficulty. [...] Review Audit Reviewed by Nida Toro MA (Security Agent) on 10/28/24 at 1502 Medication Order Taking? Sig Documenting Provider Last Dose Status Lolis Maintena 300 MG injection syringe [id number] inject INTRAMUSCULARLY ONCE A MONTH (BRING TO OFFICE FOR PROVIDER TO ADMINISTER) Active albuterol HFA 90 mcg/act inhaler [id number] Inhale 2 puffs every 4 (four) hours if needed for wheezing Eliceo Gómez, 10/19/24 2549 atenolol (Tenormin) 50 MG tablet [id number] Take 1 tablet (50 mg) by mouth Daily Eliceo Gómez DO Active cholecalciferol (Vitamin D-3) 125 MCG (5000 UT) capsule [id number] Take 125 mcg by mouth Daily Dipti Acevedo DO Active colestipol (Colestid) 1 g tablet [id number] Yes Take 1 g by mouth in the morning and 1 g in the evening. Dipti Acevedo DO Active Daridorexant HCl (Quviviq) 50 MG tablet [id number] Take 50 mg by mouth at bedtime Eliceo Gómez DOActive Discontinued 10/22/24 0842 estradiol (Estrace) 0.1 MG/GM vaginal cream [id number] APPLY 0.5G VAGINALLY TWICE WEEKLY. Dipti Acevedo DO Active estradiol (Estrace) 1 MG tablet [id number] Take 1 tablet (1 mg) by mouth Daily Dipti Acevedo DO Active ferrous sulfate 325 (65 Fe) MG tablet [id number] Take 325 mg by mouth every other day Ron King NP Active fluvoxaMINE (Luvox) 50 MG tablet [id number] Take 50 mg by mouth at bedtime Dipti Acevedo DO Active galcanezumab (Emgality) 120 MG/ML auto-injector [id number] Inject 120 mg under the skin every 30 (thirty) days Dipti Acevedo DO Active L-Theanine 200 MG capsule [id number] Take 1 capsule by mouth Daily Adriana Cruz MD Active losartan (Cozaar) 25 MG tablet [id number] Take 1 tablet (25 mg) by mouth Daily Eliceo Gómez DO Active methylphenidate ER (Concerta) 54 MG CR tablet [id number] Take 54 mg by mouth Daily Eliceo Gómez DO Active mirabegron ER (Myrbetriq) 50 MG 24 hr tablet [id number] Take 1 tablet (50 mg) by mouth at bedtime Do not crush, chew, or split. Dipti Acevedo DO Active omeprazole (PriLOSEC) [address] capsule [id number] Take 40 mg by mouth in the morning. Active Quviviq 25 MG tablet [id number] Yes TAKE 1 TABLET BY MOUTH BEDTIME ( NEEDED) FOR SLEEP Dipti Acevedo DO Active rOPINIRole (Requip) 1 MG tablet [id number] Take 1 tablet (1 mg) by mouth in the morning. Eliceo Gómez DO Active rOPINIRole (Requip) 2 MG tablet [id number] Take 1 tablet (2 mg) by mouth at bedtime Eliceo Gómez DO Active Trelegy Ellipta 100-62.5-25 MCG/ACT aerosol powder [id number] INHALE 1 PUFF BY MOUTH DAILY Eliceo Gómez DO Active triamcinolone (Kenalog) 0.1 % cream [id number] Apply topically 2 (two) times a day Dipti Acevedo DO Active Past Medical History: Diagnosis Date ADHD (attention deficit hyperactivity disorder) (CMS/HCC) 1994 Asthma (CMS/HCC) Basal cell carcinoma right chest Colon polyp Compressed cervical disc Cystocele 2021 Depression (CMS/HCC) Difficulty walking 05/12/23 Eczema 2022 Endometriosis 2015 Fissure, anal Gastroparesis GERD (gastroesophageal reflux disease) 1995 Hormone disorder 2019 Hypertension ([facility]) 1999 Migraine ([facility]) OCD (obsessive compulsive disorder) ([facility]) Panic attack ([facility]) 04/28 Rectocele 2021 RLS (restless legs syndrome) [...] reconstruction FOOT TENDON SURGERY 11/13/2023 HYSTERECTOMY 2014 [facility] BS INTRAUTERINE DEVICE INSERTION 2013 Mirena [...] at baseline unless noted below. 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 documented in this encounterFreeman Orthopaedics & Sports [id number] History of Present illness Narrative* Radha Cardenas MD - 10/23/2024 11:00 AM EST Images from the original note were not included. GASTROENTEROLOGY CLINIC FOLLOW-UP VISIT Referring Provider for today's consult: No ref. provider found Primary Care Provider: Shannon Gómez MEREDITH: 08/07/24 CC: gastroparesis History of Present Illness Mary Leal is a 54 y.o. female who [facility] today for follow-up of diarrhea, [...] gain. She has an appointment with a it specialist 10/28. She was started on buspar for uncontrolled anxiety by her PCP. Loose stools 4-8 times a day Gore 6. Occasional BRBPR. Reglan increased diarrhea, does [...] & Nutrition Department of Internal Medicine [facility] Pager [phone] or Epic Chat with questions * Adriana Peace MA - 10/23/2024 11:00 AM EST This technical publications writer verified the patient's name and . [...] for early satiety and unintentional weightloss. GES 2020 (The retention of the gastric activity is [...] Negative stool O&P. On Omeprazole daily for nursing home due to hx of grade D esophagitis, erosive gastropathy and gastroparesis. At interval, persistent loose stool Gore type 6 about 5-6 times daily with [...] Leal was offered and accepted a Medical Wire Drawing Machine Operator for this exam/procedure/test 10/23/2024.Name of Medical Wire Drawing Machine Operator: Tania Riggs documented in this [facility]12-18-2024 Instructions* Patient Instructions* Radha Cardenas [...] will either call you, send you a [employer] message, or mail you aletter with the results of your tests within 1-2 weeks after you have completed your tests. If you do not hear from our office, please call the clinic to receive your results at [phone]. As a reminder, [facility] [employer] should not be used as a form of communication that replaces an office visit. It can be used for reminders and clarifications If you need to fax old records in, please fax to [phone]. If you have any concerning symptoms, please seek immediate medical attention. documented in this [facility]12-10-2024 History of Present illness Narrative* Wendy Colon MA - 10/15/2024 3:30 PM EST Images from the original note were not included. Dipti Acevedo, DO Obstetrics and Gynecology Mary Leal 1970 10/15/24 [id number] Pre Operative Exam Chief Complaint Patient presents [...] Diagnosis Date ADHD (attention deficit hyperactivity disorder) ([facility]) 1994 Asthma (CMS/HCC) Basal cell carcinoma right [...] costovertebral angle tenderness, no obvious scoliosis/kyphosis. 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 documented in this encounterFreeman Orthopaedics & Sports [id number] Evaluation note* Diagnosis Onset Date Resolution Status Admit Date Cervical radiculopathy acute De cember 2023 8:25am Cervical radiculopathy acute [facility] 2024 1:13pm [facility] Work Phone: 1(694) 928-593311-22-2024 History of Present illness Narrative* Wendy Colon MA - 09/27/2024 11:45 AM EST Images from the original note were not included. Dipti Acevedo, DO Obstetrics and Gynecology Mary Leal 1970 09/27/24 [id number] Exam Chief Complaint Patient presents with Follow-up [...] FOOT TENDON SURGERY 11/13/2023 HYSTERECTOMY 2015 [facility] INTRAUTERINE DEVICE INSERTION 2013 Mirena OTHER SURGICAL [...] reflux disease) 1994 Hormone disorder 2018 Hypertension (CMS/HCC) 2000 Migraine (CMS/HCC) OCD (obsessive compulsive disorder) (CMS/HCC) Panic attack (CMS/HCC) 04/28 Rectocele 2021 RLS (restless legs syndrome) Urinary incontinence 2022 Varicella 1984 Visual impairment 2010 ROS See HPI EXAM GENERAL EXAMINATION alert oriented well developed, well nourished. 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 Granulation [...] blood in vault today. Educated on granulation proud lonnie, her hysterectomy was 2014. If granulation [...] Date 09/27/24 Time 5:00PM. documented in this encounterFreeman Orthopaedics & Sports [id number] History of Present illness Narrative* Ron King, DEMARCUS - 09/26/2024 4:20 PM EST Images from [...] disorder) without hyperactivity Allergic rhinitis Anxiety Asthma ([facility]) Atopic dermatitis Basal cell carcinoma (BCC) of chest Bipolar affective disorder, most recent episode mixed (CMS/[facility]) Degenerative disc disease, cervical Facet arthritis of cervical region Gastro-esophageal reflux disease without esophagitis Gastroparesis Hot flashes due to menopause Hyperlipidemia (CMS/HCC) Hypertension (CMS/HCC) Insomnia Mood swing Restless legs syndrome Tarsal tunnel syndrome Tension headache Vitamin D deficiency Arthritis B12 deficiency Bipolar 1 disorder (CMS/HCC) Chronic cluster headache, not intractable Chronic idiopathic constipation Chronic interstitial cystitis Genitourinary syndrome of menopause Incontinence Migraine ([facility]) CHUCKIE (obstructive sleep apnea) Other fatigue Overactive [...] after colorectal surgery JOLEEN (generalized anxiety disorder) ([facility]) Headache History of 2019 novel coronavirus disease (COVID-19) Impingement syndrome of right shoulder Increased frequency of urination Lingual tonsil hypertrophy Major depressive disorder, recurrent, moderate ([facility]) Nasal congestion Nausea Partial nontraumatic rupture of right rotator cuff Poor urinary stream Stress incontinence in female Unspecified inflammatory spondylopathy, cervical region (CMS/[facility]) Urinary urgency Wheezing Pain due to internal orthopedic prosthetic devices, implants and grafts, initial encounter ([facility]) Belching Past Medical History: Past Medical History: Diagnosis Date ADHD (attention deficit hyperactivity disorder) ([facility]/HCC) 1994 Asthma ([facility]) Basal cell carcinoma right chest Colon polyp Compressed cervical disc Cystocele 2021 Depression (CMS/HCC) Difficulty walking 05/12/23 Eczema 2022 Endometriosis 2015 Fissure, anal Gastroparesis GERD (gastroesophageal reflux disease) 1995 Hormone disorder 2019 Hypertension (CMS/HCC) 2000 Migraine (CMS/HCC) OCD (obsessive compulsive disorder) (CMS/[facility]) Panic attack (CMS/HCC) 04/28 Rectocele 2021 RLS [...] reconstruction FOOT TENDON SURGERY 11/13/2023 HYSTERECTOMY 2015 [facility] BS INTRAUTERINE DEVICE INSERTION 2013 Mirena [...] 10 min Stress: Stress Concern Present (05/01/2024) [place] [employer] - Occupational Stress Questionnaire Feeling of Stress : Rather much Social Connections: Socially Isolated (05/01/2024) Social Connection and Isolation Panel [NHANES] Frequency of Communication with Friends and Family: More than three times a week Frequency of Social Gatherings with Friends and Family: More than three times a week Attends Hoahaoism Services: Never Active Member of Clubs or Organizations: No Attends Club or Organization Meetings: Never Marital Status: Intimate Partner Violence: Not At Risk (06/23/2023) Received from [employer], [facility] Safety Threatened: Not on file Insulted: Not [...] or fail to improve. documented in this encounterFreeman Orthopaedics & Sports [id number] History of Present illness Narrative* Wendy Colon MA - 09/24/2024 8:15 AM EST Images from the original note were not included. Dipti Acevedo, DO Obstetrics and Gynecology Mary Leal 1970 09/24/24 [id number] Exam Chief Complaint Patient presents with Gynecologic [...] FOOT TENDON SURGERY 11/13/2023 HYSTERECTOMY 2015 [facility] INTRAUTERINE DEVICE INSERTION 2013 Mirena OTHER SURGICAL HISTORY scar tissue removed from tonsils ROTATOR CUFF REPAIR Right 10/2016 SPINE SURGERY 2017 TONSILLECTOMY 02/11/2021 TUBAL LIGATION Bilateral 2006 Past Medical History: Diagnosis Date ADHD (attention deficit hyperactivity disorder) ([facility]) 1994 Asthma (CMS/HCC) Basal cell carcinoma right chest Colon polyp Compressed cervical disc Cystocele 2021 Depression (CMS/HCC) Difficulty walking 05/12/23 Eczema 2022 Endometriosis 2014 Fissure, anal Gastroparesis GERD (gastroesophageal reflux disease) 1994 Hormone disorder 2018 Hypertension (CMS/HCC) 1999 Migraine (CMS/HCC) OCD (obsessive compulsive disorder) (CMS/HCC) Panic attack (CMS/HCC) 04/28 Rectocele 2021 RLS (restless legs syndrome) Urinary incontinence 2022 Varicella 1984 Visual impairment 2009 ROS See HPI EXAM GENERAL EXAMINATION alert oriented well developed, well nourished. HEAD: normocephalic atraumatic. EYES: sclera anicteric. EARS: no obvious hearing deficit. 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 documented in this encounterFreeman Orthopaedics & Sports [id number] Evaluation note* Diagnosis Onset Date Resolution Status Admit Date Cervical radiculopathy acute No vember 2023 2:53pm Cervical radiculopathy acute De cember 2023 8:25am [facility] Work Phone: 1(142) 181-165111-11-2024 Evaluation note* Diagnosis Onset Date Resolution Status Admit Date Cervical radiculopathy acute No vember 2023 2:53pm Cervical radiculopathy acute De cember 2023 8:25am Cervical radiculopathy acute Ja nuary 2024 1:13pm [facility] Work Phone: 1(503) 712-145010-30-2024 History of Present illness Narrative* Wendy Colon MA - 09/04/2024 3:15 PM EDT Images from the original note were not included. Dipti Acevedo, DO Obstetrics and Gynecology Mary Leal 1970 09/04/24 [id number] Exam Chief Complaint Patient presents with Follow-up [...] reconstruction FOOT TENDON SURGERY 11/13/2023 HYSTERECTOMY 2014 [facility] INTRAUTERINE DEVICE INSERTION 2013 Mirena OTHER SURGICAL HISTORY scar tissue removed from tonsils ROTATOR CUFF REPAIR Right 10/2016 SPINE SURGERY 2017 TONSILLECTOMY 02/11/2021 TUBAL LIGATION Bilateral 2006 Past Medical History: Diagnosis Date ADHD (attention deficit hyperactivity disorder) ([facility]) 1994 Asthma ([facility]) Basal cell carcinoma right chest Colon polyp Compressed cervical disc Cystocele 2021 Depression (CMS/HCC) Difficulty walking 05/12/23 Eczema 2022 Endometriosis 2015 Fissure, anal Gastroparesis GERD (gastroesophageal reflux disease) 1994 Hormone disorder 2018 Hypertension (CMS/HCC) 2000 Migraine (CMS/HCC) OCD (obsessive compulsive disorder) (CMS/HCC) Panic attack (CMS/HCC) 04/28 Rectocele 2021 RLS (restless legs syndrome) Urinary incontinence 2022 Varicella 1984 Visual impairment 2010 ROS See HPI EXAM GENERAL EXAMINATION alert oriented well developed, well nourished. HEAD: normocephalic atraumatic. EYES: sclera anicteric. EARS: no obvious hearing deficit. 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 documented in this encounterFreeman Orthopaedics & Sports [id number] History of Present illness Narrative* Ron King NP - 09/04/2024 2:40 PM EDT Images from the original note were not included. SUBJECTIVE: Mary Leal is a 54 y.o. female presents with chief complaint of No chief complaint on file. Pt presents to discuss her anxiety. Pt notes that she is in between therapy at this time, is going to est with [facility] in the first few weeks of September. [...] disorder) without hyperactivity Allergic rhinitis Anxiety Asthma ([facility]) Atopic dermatitis Basal cell carcinoma (BCC) of chest Bipolar affective disorder, most recent episode mixed ([facility]) Degenerative disc disease, cervical Facet arthritis of cervical region Gastro-esophageal reflux disease without esophagitis Gastroparesis Hot flashes due to menopause Hyperlipidemia (CMS/HCC) Hypertension (CMS/HCC) Insomnia Mood swing Restless legs syndrome Tarsal tunnel syndrome Tension headache Vitamin D deficiency Arthritis B12 deficiency Bipolar 1 disorder (CMS/HCC) Chronic cluster headache, not intractable Chronic idiopathic constipation Chronic interstitial cystitis Genitourinary syndrome of menopause Incontinence Migraine ([facility]) CHUCKIE (obstructive sleep apnea) Other fatigue Overactive [...] after colorectal surgery JOLEEN (generalized anxiety disorder) ([facility]) Headache History of 2019 novel coronavirus disease (COVID-19) Impingement syndrome of right shoulder Increased frequency of urination Lingual tonsil hypertrophy Major depressive disorder, recurrent, moderate ([facility]) Nasal congestion Nausea Partial nontraumatic rupture of right rotator cuff Poor urinary stream Stress incontinence in female Unspecified inflammatory spondylopathy, cervical region (CMS/[facility]) Urinary urgency Wheezing Pain due to internal orthopedic prosthetic devices, implants and grafts, initial encounter ([facility]) Belching Past Medical History: Past Medical History: Diagnosis Date ADHD (attention deficit hyperactivity disorder) ([facility]) 1994 Asthma ([facility]) Basal cell carcinoma right chest Colon polyp Compressed cervical disc Cystocele 2021 Depression (CMS/[facility]) Difficulty walking 05/12/23 Eczema 2022 Endometriosis 2015 Fissure, anal Gastroparesis GERD (gastroesophageal reflux disease) 1995 Hormone disorder 2019 Hypertension (CMS/HCC) 2000 Migraine ([facility]/HCC) OCD (obsessive compulsive disorder) (CMS/HCC) Panic attack [...] reconstruction FOOT TENDON SURGERY 11/13/2023 HYSTERECTOMY 2015 [facility] BS INTRAUTERINE DEVICE INSERTION 2013 Mirena [...] 10 min Stress: Stress Concern Present (05/01/2024) [place] [employer] - Occupational Stress Questionnaire Feeling of Stress : Rather much Social Connections: Socially Isolated (05/01/2024) Social Connection and Isolation Panel [NHANES] Frequency of Communication with Friends and Family: More than three times a week Frequency of Social Gatherings with Friends and Family: More than three times a week Attends Hoahaoism Services: Never Active Member of Clubs or Organizations: No Attends Club or Organization Meetings: Never Marital Status: Intimate Partner Violence: Not At Risk (06/23/2023) Received from [employer], [employer] [facility] Safety Threatened: Not on file Insulted: Not [...] (around 10/02/2024) for PRN. documented in this encounterFreeman Orthopaedics & Sports [id number] History of Present illness Narrative* Tania Riggs [...] colectomy, who presents today to the [facility] G[facility] for chronic abdominal [...] four hours. Ms. Leal sees a local hydroelectric station operator chief. She is worried about parasites with the loose stools, and SIBOdue to bloating. Ms. Leal has a history of severe reflux esophagitis but is not currently taking PPI she stopped due to concerns of side effects. She is taking an over the counter supplement root extract recommended by her local hydroelectric station operator chief. She does not take a multivitamin. Last [...] with food. She feels better at this case resolution specialist weight and is afraid to eat for weight gain, not due to her symptoms. She is not currently following with hydroelectric station operator chief or counselor and is open to both. [...] colectomy, who presents today to the [facility] Gastroenterology Clinic for chronic abdominal [...] & Nutrition Department of Internal Medicine [facility] Pager [phone] or Epic Chat with questions * Padmaja [...] Negative stool O&P. 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 Refer to nutrition and psychology (fear of eating). Continue current medications. Based on clinical course, may repeat gastric emptying test and refer to advanced endoscopy for evaluation of G-POEM if clinically indicated. documented in this [facility]10-02-2024 Instructions* Patient Instructions* Radha Cardenas MD - 08/07/2024 9:00 AM EDT It was a pleasure to see you today. The following are your instructions: - referral to GI specific outdoor studies professor, will request video/telephone visit for you - referral to psychology to help you heal your relationship with food - continue omeprazole, vitamin D, and iron repletion - repeat H2 breath testing as able If you had labs drawn, I or my team will either call you, send you a [employer] message, or mail you aletter with the results of your tests within 1-2 weeks after you have completed your tests. If you do not hear from our office, please call the clinic to receive your results at [phone]. As a reminder, [facility] My[facility] should not be used as a form of communication that replaces an office visit. It can be used for reminders and clarifications If you need to fax old records in, please fax to [phone]. If you have any concerning symptoms, please seek immediate medical attention. documented in this [facility]09-26-2024 History of Present illness Narrative* [...] deficiency Arthritis B12 deficiency Bipolar 1 disorder ([facility]/HCC) Chronic cluster headache, not intractable Chronic idiopathic constipation Chronic interstitial cystitis Genitourinary syndrome of menopause Incontinence Migraine ([facility]) CHUCKIE (obstructive sleep apnea) Other fatigue Overactive [...] after colorectal surgery JOLEEN (generalized anxiety disorder) ([facility]) Headache History of 2019 novel coronavirus disease (COVID-19) Impingement syndrome of right shoulder Increased frequency of urination Lingual tonsil hypertrophy Major depressive disorder, recurrent, moderate (HCC) ([facility]) Nasal congestion Nausea Partial nontraumatic rupture of right rotator cuff Poor urinary stream Stress incontinence in female Unspecified inflammatory spondylopathy, cervical region ([facility]) Urinary urgency Wheezing Pain due to internal orthopedic prosthetic devices, implants and grafts, initial encounter ([facility]) Jamal Past Medical History: Past Medical History: Diagnosis Date ADHD (attention deficit hyperactivity disorder) ([facility]) 1994 Asthma ([facility]) Basal cell carcinoma right chest Colon polyp Compressed cervical disc Cystocele 2021 Depression ([facility]) Difficulty walking 05/12/23 Eczema 2022 Endometriosis 2015 Fissure, anal Gastroparesis GERD (gastroesophageal reflux disease) 1995 Hormone disorder 2019 Hypertension ([facility]) 2000 Migraine ([facility]) OCD (obsessive compulsive disorder) ([facility]) Panic attack ([facility]) 04/28 Rectocele 2021 RLS (restless legs syndrome) [...] reconstruction FOOT TENDON SURGERY 11/13/2023 HYSTERECTOMY 2014 [facility] BS INTRAUTERINE DEVICE INSERTION 2013 Mirena [...] 10 min Stress: Stress Concern Present (05/01/2024) [place] of Occupational Health - Occupational Stress Questionnaire Feeling of Stress : Rather much Social Connections: Socially Isolated (05/01/2024) Social Connection and Isolation Panel [NHANES] Frequency of Communication with Friends and Family: More than three times a week Frequency of Social Gatherings with Friends and Family: More than three times a week Attends Hoahaoism Services: Never Active Member of Clubs or Organizations: No Attends Club or Organization Meetings: Never Marital Status: Intimate Partner Violence: Not At Risk (06/23/2023) Received from [employer], Liquid LightRe[facility] by [facility] Safety Threatened: Not on file Insulted: Not [...] and/or persist despite treatment. - nystatin (Mycostatin) [id number] UNIT/ML suspension; Take 5 mL (500,000 Units) [...] mouth every other day, Disp: , Rfl: Aizqhhcdrsb-Sinsdvseb-Fesfxw 100-62.5-25 MCG/ACT aerosol powder , Inhale 1 [...] 90 tablet, Rfl: 1 documented in this encounterFreeman Orthopaedics & Sports [id number] NoteSLEEP/NEUROLOGY CLINIC FOLLOW-UP EVALUATION Date of Evaluation: [...] regarding sleep. She eventually was evaluated at [facility] sleep center with Dr. Sherman [...] was also evaluated at sleep medicine at [facility], and saw Dr. Yoni Tuttle on 10/14/2022. She was subsequently started on auto-CPAP 5-15 cm H2O with nasal mask in December 2022. She uses the CPAP for about a week, and had severe intolerance and felt suffocated. She had severe pressure and mask intolerance, and despite changes in masks and pressure settings she was not able to tolera (more content not included)...[facility] 07-11-2024 History of Present illness Narrative* [...] after colorectal surgery JOLEEN (generalized anxiety disorder) ([facility]) Headache History of 2018 novel coronavirus disease (COVID-19) Impingement syndrome of right shoulder Increased frequency of urination Lingual tonsil hypertrophy Major depressive disorder, recurrent, moderate (HCC) ([facility]) Nasal congestion Nausea Partial nontraumatic rupture of right rotator cuff Poor urinary stream Stress incontinence in female Unspecified inflammatory spondylopathy, cervical region ([facility]) Urinary urgency Wheezing Pain due to internal orthopedic prosthetic devices, implants and grafts, initial encounter ([facility]) Belching Past Medical History: Past Medical History: Diagnosis Date ADHD (attention deficit hyperactivity disorder) ([facility]) 1994 Asthma ([facility]) Basal cell carcinoma right chest Colon polyp Compressed cervical disc Cystocele 2021 Depression ([facility]) Difficulty walking 05/12/23 Eczema 2022 Endometriosis 2015 Fissure, anal Gastroparesis GERD (gastroesophageal reflux disease) 1994 Hormone disorder 2019 Hypertension ([facility]) 2000 Migraine ([facility]) OCD (obsessive compulsive disorder) ([facility]) Panic attack ([facility]) 04/28 Rectocele 2021 RLS (restless legs syndrome) [...] 10 min Stress: Stress Concern Present (05/01/2024) [place] [employer] of Occupational Health - Occupational Stress Questionnaire Feeling of Stress : Rather much Social Connections: Socially Isolated (05/01/2024) Social Connection and Isolation Panel [NHANES] Frequency of Communication with Friends and Family: More than three times a week Frequency of Social Gatherings with Friends and Family: More than three times a week Attends Hoahaoism Services: Never Active Member of Clubs or Organizations: No Attends Club or Organization Meetings: Never Marital Status: Intimate Partner Violence: Not At Risk (06/23/2023) Received from [employer], [facility] Safety Threatened: Not on file Insulted: Not [...] SM ANTIBODY <1.0 NEG <1.0 NEGATIVE AI SM/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 ANTIBODY <1.0 NEG <1.0 NEGATIVE AI SJOGREN'S [...] Gastroparesis Mild intermittent asthma, unspecified whether complicated ([facility]) Patient advised to return if symptoms worsen and/or persist despite treatment.improved significantly, continue current treatment - albuterol HFA 90 mcg/act inhaler; Inhale 2 puffs every 4 (four) hours if needed for wheezing - Mmytyfruhzv-Tilrvprpp-Mjplel 100-62.5-25 MCG/ACT aerosol powder ; Inhale 1 [...] mouth every other day, Disp: , Rfl: Dilwnqcjfan-Gavvudimr-Ulumqc (Trelegy Ellipta) 100-62.5-25 MCG/ACT aerosol powder , Inhale, Disp: ,Rfl: Usynpnglrgt-Gzinhabjq-Pydllc 100-62.5-25 MCG/ACT aerosol powder , Inhale 1 [...] Disp: 30 tablet, Rfl: 11 nystatin (Mycostatin) [id number] UNIT/ML suspension, Take 5 mL by mouth [...] Daily, Disp: , Rfl: documented in this encounterFreeman Orthopaedics & Sports [id number] History of Present illness Narrative* Sidney Amezquita [...] and follow-up if needed. documented in this encounterFreeman Orthopaedics & Sports [id number] Telephone encounter Note* Telephone Encounter - Serenity Joseph MA - 06/12/2024 2:19 PM EDT LDH=11/30/22 MEREDITH=10/11/22 Patient will need a follow up appointment For future refills [facility]08-07-2024 Miscellaneous Notes* Telephone Encounter - Serenity Joseph MA - 06/12/2024 2:19 PM EDT LDH=11/30/22 MEREDITH=10/11/22 Patient will need a follow up appointment For future refills documented in this encounterOhio [facility] System07-[facility]-2024 Miscellaneous Notes* Telephone Encounter - [...] for her. Patient also is switching pharmacies: [facility] in [address] [place] [address] * Telephone Encounter - Adriana Barkley RN - 05/14/2024 8:15 AM EDT [...] weeks maintenance. Thanks * Telephone Encounter - Adriana Barkley RN - 05/14/2024 8:15 AM EDT Orders placed for review and signature by physician for Emgality loading and maintenance dose. Prior auth submitted to [facility] via [facility]. [place]: [id number] documented in this encounterW[facility] Telephone encounter Note* Telephone Encounter - [...] for her. Patient also is switching pharmacies: [facility] in [address] [place] [id number] [facility]07-09-2024 Telephone encounter Note* Telephone Encounter - Adriana Barkley RN - 05/14/2024 8:15 AM EDT Added new pharmacy to patient's chart. Please advise on medication changes. [facility]07-09-2024 Telephone encounter Note* Telephone Encounter - Pauline Christensen MD - 05/14/2024 8:15 AM EDT Yes, ok to switch to Emgalty- she will need loading dose of 120 mg x 2 injections = 240 mg for the first month, and afterwards 120 mg Q4 weeks maintenance. Thanks [facility]07-09-2024 Telephone encounter Note* Telephone Encounter - Adriana Barkley RN - 05/14/2024 8:15 AM EDT Orders placed for review and signature by physician for Emgality loading and maintenance dose. Prior auth submitted to [facility] via [facility]. [place]: [id number] [facility]06-23-2024 NoteQuality of life Answer each question by shading in the [place] completely. Choose only one answer for each [...] 70 75 80 85 90 95 100 [facility]06-23-2024 NoteEpworth Sleepiness Scale Please rate the [...] There are no active Hospital Problems. [facility]06-12-2024 Note Attestation signed by Grant Biswas, PhD at 04/18/2024 10:57 AM I have read and agree with the pharmaceutical engineer's documentation and treatment summary. Please note there [...] PhD (electronically signed on 04/17/2024 at 8:49 AM)[facility]06-07-2024 Nurse Note* Nursing Notes - Stacie Johns RN - 04/12/2024 12:45 PM EDT Dilated LES to 20mm with balloon, held for [address] Franco [facility]06-07-2024 Miscellaneous Notes* Nursing Notes - [...] and monitoring per anesthesia. documented in this encounterOSUniversity [facility]06-[facility] Nurse Note* Nursing Notes - Stacie Johns RN - 04/12/2024 12:41 PM EDT Dilated pylorus to 20mm with balloon, held for [address] Franco. [facility]06-07-2024 History and physical note* Milagros Franco MD, PhD - 04/12/2024 12:30 PM EDT ENDOSCOPIC PREPROCEDURE HISTORY AND PHYSICAL HISTORY OF PRESENT ILLNESS: Mary Leal is a 53 y.o. female seen in the pre-procedure area at [facility]. The indication for endoscopic evaluation includes: [place] grade D esophagitis Early satiety Unintentional weight [...] Anesthesia Care. Milagros Franco MD, PhD [facility] Work Phone: 1(215) 722-812206-07-2024 History and physical note* Milagros Franco MD, PhD - 04/12/2024 12:30 PM EDT ENDOSCOPIC PREPROCEDURE HISTORY AND PHYSICAL HISTORY OF PRESENT ILLNESS: Mary Leal is a 53 y.o. female seen in the pre-procedure area at [facility]. The indication for endoscopic evaluation includes: [place] grade D esophagitis Early satiety Unintentional weight [...] Milagros Franco MD, PhD documented in this [facility]06-07-2024 Nurse Note* Sae Kaur RN - 04/12/2024 12:30 PM EDT 1316- Family/seasonal delivery driver arrived to recovery bay. RN provided and reviewed discharge instructions to patient and daughter. Verbalized understanding. All questions answered. 1326- Patient ambulated off ASC unit independently with seasonal delivery driver. documented in this encounterMercy Memorial Hospital06-07-2024 Nurse Surgical operation note* Sae Kaur RN - 04/12/2024 12:30 PM EDT 1316- Family/seasonal delivery driver arrived to recovery bay. RN provided and reviewed discharge instructions to patient and daughter. Verbalized understanding. All questions answered. 1326- Patient ambulated off ASC unit independently with seasonal delivery driver. [facility]06-07-2024 Nurse Note* Nursing Notes - Stacie Johns RN - 04/12/2024 12:12 PM EDT Sedation, vital signs, airway, and monitoring per anesthesia. [facility]05-29-2024 Note Attestation signed by Pauline Christensen MD at 04/03/2024 4:16 PM I personally saw and examined the patient on the same date of service as resident/fellow Dr. Dumont. I discussed the findings and therapeutic plan with the resident/fellow . I agree with the documentation, except for any edits/updates below. Teaching Physician's Revisions: None Pauline Christensen MD. Cooking Instructor of Neurology and Sleep Medicine [facility] SLEEP/NEUROLOGY CLINIC FOLLOW-UP EVALUATION Date [...] regarding sleep. She eventually was evaluated at [facility] sleep center with Dr. Sherman [...] we referred her to (more content not included)...[facility] 03-14-2024 Telephone encounter Note* Telephone Encounter - Jacquelin Lowery RN - 03/14/2024 9:56 AM EDT 02/27/24 OV with Orquidea: ASSESSMENT: aMry Leal is a 53 year old female [...] Rx has been sent. Jacquelin Lowery RN [facility]05-09-2024 Miscellaneous Notes* Telephone Encounter - [...] sent. Jacquelin Lowery RN documented in this encounterOhio State Health System2024 NoteHNO ID: [id number] Author: FLOWER LOPEZ APRN.AIR TUCKER Service: ? Author Type: Nurse Practitioner Type: [...] intermittently- somewhat improved. She has worked with [employer] rep re: interstim setting, now on program [...] you received about pain medications helpful? 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 She has worked with [employer] rep re: interstim setting, now on program [...] you received about pain medications helpful? Yes Wire Drawing Machine Operator offered:Patient declines OBJECTIVE: BP 146/93 Pulse 62 [...] nightly x 2 weeks then twice per wejovi Follow up 6 months or sooner if needed. Patient expressed understanding. Flower Lopez APRN.CNP documented in this encounterOhio State Health System04-16-2024 Miscellaneous Notes* Telephone Encounter - [...] 20, 2024 7:32 AM documented in this encounterOhio State Health System04-07-2024 NoteHNO ID: [id number] Author: LISSA DOYLE APRN.CNP Service: ? Author Type: Nurse Practitioner Type: Progress Notes Filed: 02/11/2024 15:16 Note Text: Visit cancelled. Patient checked into [facility] care online system for My ongoing yeast infection. I've tried 3 Diflucan. . Connected to visit, advised PCP or local Express/Urgent Care in person evaluation. Patient verbalized understanding and comfortable with plan. Nontoxic appearance. Lissa Doyle APRN.CNPSelect Medical Specialty [facility] [place]04-07-2024 History of Present illness Narrative* Lissa Doyle APRN.CNP - 02/11/2024 3:14 PM EDT Visit cancelled. Patient checked into [facility] care online system for My ongoing yeast infection. I've tried 3 Diflucan. . Connected to visit, advised PCP or local Express/Urgent Care in person evaluation. Patient verbalized understanding and comfortable with plan. Nontoxic appearance. Lissa Doyle APRN.CNP documented in this encounterOhio State Health System04-03-2024 NoteSLEEP/NEUROLOGY CLINIC FOLLOW-UP EVALUATION Date [...] a second opinion from sleep medicine at [facility], and saw Dr. Yoni Tuttle [...] regarding sleep. She eventually was evaluated at [facility] sleep center with Dr. Sherman [...] would like to av (more content not included)...[facility]03-23-2024 Miscellaneous Notes* Telephone Encounter - Radha Dunham MD - 01/27/2024 10:44 AM EDT Police Or Patrol Park Officer Resident Telephone Encounter 01/27/2024 10:44 AM Call [...] Discussed with Dr. Mullins, Urogyn fellow physician recreation program specialist. Radha Dunham MD Obstetrics and Gynecology, PGY1 documented in this encounterOhio State Health System03-21-2024 History and physical note * Max Marroquin PA-C - 01/25/2024 9:00 AM EDT PREANESTHESIA CONSULT CLINIC TELEHEALTH VISIT SERVICE DATE: 01/25/2024 SERVICE TIME: 9:02 AM Patient has been identified by name and date of : Yes Reason for contact: PACC visit Accompanied by: Self This is a virtual visit using [employer] Video Visit. It required patient- provider interaction for the medical decision making as documented below. I have communicated my name and active licensure. The patient's identity and physical location wereverified at the time of this visit. Either the patient or their legal advertising account representative has been informed of the [...] using inspire to get activated 02/07/2024 ) [id number] Score: Age: <65 Sex: female CHF history: No Hypertension history: Yes Stroke/TIA/thromboembolism history: No Vascular disease history: No Diabetes history: No [id number] Score: 2 ANESTHESIA FINDINGS: Intubation History: No [...] the AM and 2 mg PM Yes vfvvzzoijpc-bwtuodmyq-sevxinwi (TRELEGY ELLIPTA) 100-62.5-25 mcg Inhale 1 Puff [...] fevers. Neuro: No history of TIA's, stroke, INDUCTION HEAT TREATER tumor, impaired sensorium, hemiplegia, paraplegia or quadraplegia. No neurological symptoms or problems. Respiratory: CHUCKIE and asthma Negative for Bronchitis, COPD, Pneumonia within 6 weeks (date), URI < 2 weeks Negative for cough, wheezing or shortness of breath. Negative for hemoptysis. Cardiovascular: HTN Negative for Recent MS, CAD, CHF Negative for chest pain, orthopnea, [...] 01/25/2024 TIME: 9:02 AM documented in this encounterOhio State Health System03-19-2024 Instructions* Patient Instructions* Max Marroquin PA-C - 01/23/2024 3:50 PM EDT PATIENT PREOPERATIVE INSTRUCTIONS Pam Wang MD has scheduled you for your procedure at this surgery center: [facility] Scheduling Office: [phone] --[address] [place] [address]. Arrival Time for Surgery: - To obtain your arrival time for surgery, call your physician's office the day before your surgery. - If your surgery is scheduled for Monday, call the Monday before. Your surgeon s asp net mvc developer will tell you what time to call the office. - If you have not reached the departmental asp net mvc developer by 5 P.M., call [phone] after 5 P.M. the day before your [...] Procedures: - YOU MUST HAVE A RESPONSIBLE PIANO BENCH ASSEMBLER TAKE YOU HOME. A FILLER LEAF CUTTER LONG OR WAX ENGRAVER CANNOT BE MADE A RESPONSIBLE PIANO BENCH ASSEMBLER. - We recommend that a responsible person stays with you overnight to take care of you. - You cannot stay in a hotel alone after outpatient surgery. You will not be permitted to have yoursurgery, if you do not have someone to take care of you. If you already have an Advance Directive, please fax a copy to [phone] or email to for it to be [...] day. Max Marroquin PA-C documented in this encounterOhio State Health System03-18-2024 NoteHNO ID: [id number] Author: LEV THOMPSON LPN Service: ? Author Type: LICENSED NURSE Type: Progress Notes Filed: 01/25/2024 09:48 Note Text: DATE OF SERVICE: 01/25/2024 PROBLEM: Mary Leal presents for pre-op teaching. PRE-OP DIAGNOSIS: urinary urgency SCHEDULED SURGERY AND DATE: 01-26-24 [facility] INSRT NSTIM GENERATOR BLADDER W/ POCKET [...] patient have an advanced directive: No Does [facility] have a copy of the [...] prescribed by anesthesia, internal medicine, surgeon, or MARKETING PROJECT SPECIALIST Stop NSAIDs, Aspirin (ASA), vitamins, herbal [...] jewelry, body piercing, makeup, contacts, lotions, nail swedish on fingers, or anything in hair on arrival to surgery Wear low healed shoes and loose fitting clothing Leave all valuables at home or with a family member Directions to [facility] Parking/parking validation on the day [...] if after hours patient instructed to call grinding machine operator portable and ask for recreation program specialist tv news director resident. DENISA program offered to patient: Yes [...] None Educator: Lev Thompson LPN [facility] [place] History of Present illness Narrative* Lev Thompson LPN - 01/22/2024 11:22 AM EDT DATE OF SERVICE: 01/25/2024 PROBLEM: Mary Leal presents for pre-op teaching. PRE-OP DIAGNOSIS: urinary urgency SCHEDULED SURGERY AND DATE: 01-26-24 [facility] INSRT NSTIM GENERATOR BLADDER W/ POCKET [...] patient have an advanced directive: No Does [facility] have a copy of the [...] prescribed by anesthesia, internal medicine, surgeon, or MARKETING PROJECT SPECIALIST Stop NSAIDs, Aspirin (ASA), vitamins, herbal [...] jewelry, body piercing, makeup, contacts, lotions, nail swedish on fingers, or anything in hair on arrival to surgery Wear low healed shoes and loose fitting clothing Leave all valuables at home or with a family member Directions to [facility] Parking/parking validation on the day [...] patient, if after hours patientinstructed to call grinding machine operator portable and ask for recreation program specialist tv news director resident. DENISA program offered to patient: Yes [...] None Educator: Lev Thompson LPN [facility] P[facility]is documented in this encounterOhio State Health System03-18-2024 Instructions* Patient Instructions* Lev Thompson LPN - 01/22/2024 11:22 AM EDT UROGYNECOLOGY PHYSICIAN CONTACT INFORMATION During business hours, these numbers connect to your doctor s office. During the evening and weekends, these numbers will connect you to the answering service to speak with the doctor recreation program specialist. Dr. Pam Wang After hours phone number: or toll free Ask the grinding machine operator portable to page the 'tv news director recreation program specialist.' Surgery Scheduling Office: Call the day before [...] vitamin E, herbal medications, diet pills, and ilsa-tuk-rvvxfxi medications. Tylenol (acetaminophen) is okay. I will not wear jewelry, body piercing(s), makeup, nail swedish, hairpins, or contacts on the day ofsurgery. [...] my surgeon. Discuss medication changes with your costume maker or primary care physician as well. If I stopped taking my blood-thinning medication, I will ask the surgeon when to resume taking it. If I am an outpatient, a responsible person will drive me home and it was suggested that someone stay with me for 24 hours. I understand that a business intelligence developer or cabdriver is NOT a responsible [...] time for surgery, I must call my route service representative after 2pm the day before surgery. PREOP INSTRUCTIONS THE DAY OF SURGERY/CHECK IN Report to DESK [facility] for surgery. A map is located in Your Surgical Guide Book. The online version of the surgical guide book can be found at: [email or web address] The address is [address] [place] [address] INFECTION PREVENTION Please notify your doctor if [...] Your Surgical Guide Book for more information. [facility] TEAM At the [facility], we have a multidisciplinary team of caregivers that includes fellows, residents, nurse practitioners, physician assistants, clinical nurse specialists, nurses, medical assistants, patient care nursing assistants, social workers, continuous pillowcase cutter and many others. We all have different [...] MyChart for post-surgery concerns. documented in this encounterOhio State Health System03-06-2024 History of Present illness Narrative* Cullen Dawkins MD - 01/10/2024 12:45 PM EST [facility] - ENT [address] [place] [id number] SUBJECTIVE: Patient ID (1970): Mary Leal is [...] carcinoma (BCC) of chest 04/04/2023 Bipolar disorder ([facility]) Chronic interstitial cystitis 04/06/2023 Chronic sinusitis 07/07/2022 [...] 03/20/2020 Performed by Alberto Solis MD at [facility] ENDOSCOPY EGD, DILATATION N/A 09/25/2020 Performed by Alberto Solis MD at [facility] ENDOSCOPY ENDOSCOPIC DIAGNOSTIC DRUG INDUCED SLEEP Bilateral 09/19/2023 Performed by Cullen Dawkins MD at [facility] FOOT SURGERY 06/25/2020 left foot surgery FOOT SURGERY Right 10/2022 and 05/2023 HYSTERECTOMY 2015 LASER LINGUAL TONISILLECTOMY Circumferential 07/08/2021 Performed by Alexei Avila MD PhD at [facility] MRI FOOT LEFT NECK SURGERY 2017 PLANTAR FASCIECTOMY RELEASE PHARYNGEAL SCAR CPT 18212 Circumferential 07/08/2021 Performed by Alexei Avila MD PhD at [facility] RESECTION SUBMUCOSAL NASAL Bilateral 02/11/2021 Performed by Alexei Avila MD PhD at [facility] ROTATOR CUFF REPAIR Right SEPTOPLASTY Circumferential 02/11/2021 Performed by Alexei Avila MD PhD at [facility] TONSILLECTOMY Bilateral 02/11/2021 Performed by Alexei Avila MD PhD at [facility] TOTAL COLECTOMY 03/2022 uvuloplasty N/A 02/11/2021 Performed by Alexei Avila MD PhD at [facility] Family History Problem Relation Age of [...] in the morning. Indications: gastroesophageal reflux disease. ubxwvifsdri-tlpmxwglt-gcfhoktx (TRELEGY ELLIPTA) 100-62.5-25 mcg blister with device [...] 2.5 mg 2.5 mg nebulization PRN Gwendolyn L Kregel, MACHINE PACKAGE SEALER-AIR TUCKER REVIEW OF SYSTEMS: Review of Systems Data [...] this chart were generated using voice recognition Unowhy*HandUp PBC dictation software. Although every effort was made to ensure the accuracy of this automated portable router operator, some errors in portable router operator may have occurred. Iam Casanovaoy 01/10/24 0753 documented in this encounterTriHealth Bethesda North HospitalHELIX BIOMEDIX Beaumont [id number] Instructions* Patient Instructions* Cullen Dawkins MD - [...] care. The instructions to gain access to [employer] are at the bottom of this summary. If you are not signed up for access to MY CHART and have not received notification of ANY test result within 7 days, please call [phone] to leave a request for your results. [...] Ultrasound, MRI or PET scan, please call [employer] [facility] Scheduling at [phone]. If you need to be scheduled for surgery, please call Aiden Augustin Surgery Coordinator at [phone], or Lazara at [phone] or our main number [phone] if you have not received a return [...] (and medications that contain aspirin): Many non-prescription (kesa-gem-qlldqgp or OTC) medications contain aspirin. If you are unsure whether a medication you take has aspirin, please ask your pharmacist or your surgeon's office. You must ask your surgical team if they want you to continuetaking, or stop taking aspirin before your procedure. Medications containing aspirin that should be stopped 7 days before surgery: Juliet-Colt Anacin Aspirin Fiorinal Ascriptin Carlos Bufferin Lortab [...] L-carnosine Licorice Kava kava Milk thistle Multivitamin [place]-3 Resveratrol Skullcap [facility] Vitamin E Adipex (phentermine) Glenn (orlistat) Hydroxycut Garcinia Cambogia Raspberry Ketones Pthuthzm-Y-04 should be stopped 14 days before surgery You will receive specific instructions regarding your insulin and anti-coagulant/anti-platelet medications (if applicable). documented in this [facility]02-21-2024 Miscellaneous Notes* Telephone Encounter - Aiden Charli - 12/27/2023 10:12 AM EST PATIENT NOTIFIED WITH SURGERY TIME OF 11:00. TOLD TO ARRIVE 2 HOURS PRIOR. documented in this encounterWyandot [facility] Hospital02-21-2024 Telephone encounter Note* Telephone Encounter - Aiden Charli - 12/27/2023 10:12 AM EST PATIENT NOTIFIED WITH SURGERY TIME OF 11:00. TOLD TO ARRIVE 2 HOURS PRIOR. [facility]02-19-[facility] Miscellaneous Notes* Telephone Encounter - Stacie Gonzalez [...] distance health visit in this department: 10/25/2021 Superintendent Terminal, Nurse Next visit in this department: 01/25/2024 documented in this encounterOhio State Health System02-14-2024 History and physical note * iVlma Sutton APRN-AIR TUCKER - 12/20/2023 11:45 AM EST PRE-ADMISSION TESTING HISTORY AND PHYSICAL EXAM DATE: 12/20/23 PCP: ELICEO GÓMEZ JR, DO CHIEF COMPLAINT: CHUCKIE (obstructive sleep apnea) HISTORY OF PRESENT ILLNESS: Mary Leal, a 53 y.o. White or female, presents to [facility] for a pre- surgical H&P for [...] 03/20/2020 Performed by Alberto Solis MD at [facility] ENDOSCOPY EGD, DILATATION N/A 09/25/2020 Performed by Alberto Solis MD at [facility] ENDOSCOPY ENDOSCOPIC DIAGNOSTIC DRUG INDUCED SLEEP Bilateral 09/19/2023 Performed by Cullen Dawkins MD at [facility] FOOT SURGERY 06/25/2020 left foot surgery FOOT SURGERY Right 10/2022 and 05/2023 HYSTERECTOMY 2015 LASER LINGUAL TONISILLECTOMY Circumferential 07/08/2021 Performed by Alexei Avila MD PhD at [facility] MRI FOOT LEFT NECK SURGERY 2017 PLANTAR FASCIECTOMY RELEASE PHARYNGEAL SCAR CPT 79198 Circumferential 07/08/2021 Performed by Alexei Avila MD PhD at [facility] RESECTION SUBMUCOSAL NASAL Bilateral 02/11/2021 Performed by Alexei Avila MD PhD at [facility] ROTATOR CUFF REPAIR Right SEPTOPLASTY Circumferential 02/11/2021 Performed by Alexei Avila MD PhD at [facility] TONSILLECTOMY Bilateral 02/11/2021 Performed by Alexei Avila MD PhD at [facility] TOTAL COLECTOMY 03/2022 uvuloplasty N/A 02/11/2021 Performed by Alexei Avila MD PhD at [facility] FAMILY HISTORY: Family History Problem Relation [...] Indications: gastroesophageal reflux disease., Disp: , Rfl: hlovgcpopvb-vcssprjci-cncktjxp (TRELEGY ELLIPTA) 100-62.5-25 mcg blister with device, [...] mg, 2.5 mg, nebulization, PRN, Gwendolyn Stroud, MACHINE PACKAGE SEALER-AIR TUCKER REVIEW OF SYSTEMS: Review of Systems Constitutional: [...] the most recent lab values available in [facility] at the time ofthe office visit and additional labs may have been drawn since that time. ASSESSMENT / DIAGNOSIS: CHUCKIE (obstructive sleep apnea) PLAN: Mary Zoya Leal is scheduled for Insertion Stimulator Nerve Hypoglossal - Right with Dr. Dawkins on01/02/2024. STELLA Duron 12/20/23 1240 [facility] [employer] [id number] History and physical note* STELLA Duron - 12/20/2023 11:45 AM EST PRE-ADMISSION TESTING HISTORY AND PHYSICAL EXAM DATE: 12/20/23 PCP: ELICEO GÓMEZ JR, DO CHIEF COMPLAINT: CHUCKIE (obstructive sleep apnea) HISTORY OF PRESENT ILLNESS: Mary Leal, a 53 y.o. White or female, presents to [facility] for a pre- surgical H&P for [...] 03/20/2020 Performed by Alberto Solis MD at [facility] ENDOSCOPY EGD, DILATATION N/A 09/25/2020 Performed by Alberto Solis MD at [facility] ENDOSCOPY ENDOSCOPIC DIAGNOSTIC DRUG INDUCED SLEEP Bilateral 09/19/2023 Performed by Cullen Dawkins MD at [facility] FOOT SURGERY 06/25/2020 left foot surgery FOOT SURGERY Right 10/2022 and 05/2023 HYSTERECTOMY 2015 LASER LINGUAL TONISILLECTOMY Circumferential 07/08/2021 Performed by Alexei Avila MD PhD at [facility] MRI FOOT LEFT NECK SURGERY 2017 PLANTAR FASCIECTOMY RELEASE PHARYNGEAL SCAR CPT 96860 Circumferential 07/08/2021 Performed by Alexei Avila MD PhD at [facility] RESECTION SUBMUCOSAL NASAL Bilateral 02/11/2021 Performed by Alexei Avila MD PhD at [facility] ROTATOR CUFF REPAIR Right SEPTOPLASTY Circumferential 02/11/2021 Performed by Alexei Avila MD PhD at [facility] TONSILLECTOMY Bilateral 02/11/2021 Performed by Alexei Avila MD PhD at [facility] TOTAL COLECTOMY 03/2022 uvuloplasty N/A 02/11/2021 Performed by Alexei Avila MD PhD at [facility] FAMILY HISTORY: Family History Problem Relation [...] Indications: gastroesophageal reflux disease., Disp: , Rfl: oqdkeztabzw-lhamadxke-rwvvyzxs (TRELEGY ELLIPTA) 100-62.5-25 mcg blister with device, [...] mg, 2.5 mg, nebulization, PRN, Gwendolyn Stroud, MACHINE PACKAGE SEALER-AIR TUCKER REVIEW OF SYSTEMS: Review of Systems Constitutional: [...] the most recent lab values available in [facility] at the time ofthe office visit and additional labs may have been drawn since that time. ASSESSMENT / DIAGNOSIS: CHUCKIE (obstructive sleep apnea) PLAN: Mary Leal is scheduled for Insertion Stimulator Nerve Hypoglossal - Right with Dr. Dawkins on01/02/2024. STELLA Duron 12/20/23 1240 documented in this encounterTriHealth Bethesda North HospitalUnitrio Technology [id number] Instructions* Patient Instructions* Earlene Whalen RN - 12/20/2023 11:45 AM EST Your [facility]/procedure [facility] on 01[facility]02/2024 Arrival Time Surgeon will call [facility] Address: [address] [place] [address], [address] Park in the Emergency Center Parking lot. Report to the front desk receptionist in the Emergency/Surgery Registration lobby of the hospital. Please call Pre-Admission Clinic at [phone] if you have any questions prior to surgery. For questions the morning of surgery, please call the Pre-op Department at [phone]. Notify your SURGEON if you develop any [...] [facility] facility, please call [phone] ([phone]). Do not use lotions, creams, powders, perfume, make up, cologne or after-shaves day of surgery. Remove ALL jewelry including wedding rings, body piercings, hair extensions that contain metal, nail swedish, make-up, and contact lens. You may brush your teeth the morning of surgery, but do not swallow the water. Wear your dentures and partial plates to the hospital (no adhesive). Shower the night the before. If applicable, use the CHG (chlorhexidine gluconate) soap or wipes. Please be advised, [place] has transitioned to a cashless payment system. [...] RIGHTS AND RESPONSIBILITIES As a patient at [facility], you have the right to: Receive medical care and be informed of who is taking care of you Be treated with dignity and respect Have a family member/advertising account representative of choice and your physician notified of your admission Receive information and actively participate in decisions about your care and treatment Refuse care, treatment and services Decide who may provide your support and speak for you Access anglican and spiritual services Participate in ethical issues [...] of hospital charges and payment methods Patient/patient advertising account representative responsibilities are to: Provide information [...] surgery in clean clothes. documented in this encounterWyandot Memorial Hospital01-16-2024 NoteHNO ID: [id number] Author: PAM WANG MD Service: ? Author [...] my personal performance and is accurate and complete.[facility]01-03-2024 Miscellaneous Notes* Telephone Encounter - Emily Zamora - 11/08/2023 3:40 PM EST ANNATEC PENDING WITH TEJADA [id number] documented in this encounterWyandot Memorial Hospital01-03-2024 Telephone encounter Note* Telephone Encounter - Emily Zamora - 11/08/2023 3:40 PM EST ANNATEC PENDING WITH TEJADA [id number] [facility]12-07-2023 NoteHNO ID: [id number] Author: Pam Wang MD Service: ? Author [...] Video-assisted cystourethroscopy was performed using a 19 Bolivian 70 and 30 degree rigid cystoscope with [...] and urethra PLAN: See progress note from todaySelect [facility] [place]12-05-2023 NoteHNO ID: [id number] Author: Pam Wang MD Service: ? Author [...] PFSH obtained by others. Pam Wang MD Wire Drawing Machine Operator offered: Patient declines. OBJECTIVE: BP 102/60 General: [...] which included preparing to see the patient, amqx-jj-kelx patient care, completing clinical documentation, obtaining and/or reviewing separately obtained history, performing a medically appropriate examination, counseling and educating the patient/family/caregiver, and communicating with other HCP (more content not included)...[facility]11-27-2023 Miscellaneous Notes * Telephone Encounter - Hardik [...] FLUCONAZOLE 150 MG TABLET MEREDITH: 09/27/2023 Doris rAias APRN.[facility] ([facility]) ASSESSMENT: Mary Leal is a 53 year [...] w/ Dr. Pam Wang documented in this encounterOhio State Health System11-22-2023 NoteHNO ID: [id number] Author: Doris Arias APRN.AIR TUCKER Service: ? Author Type: Nurse Practitioner Type: [...] urination is normal and pressure with urinating TROUBLE CLERK: denies abnormal vaginal bleeding, no vaginal discharge [...] Making Level: 3 - Low Doris Arias APRN.[facility]11-22-2023 Miscellaneous Notes * Telephone Encounter [...] which included preparing to see the patient, cwia-hv-urps patient care, completing clinical documentation, obtaining and/or [...] Office will call to schedule cystoscopy. Urogynecology [facility] Main provided: Pam Wang Staff Physician, Department of Urogynecology and Pelvic Floor Disorders Worsening frequency and urgency of urination. Is a urine culture indicated? Please review/advise Lex Vieyra RN documented in this encounterOhio State Health System11-06-2023 NoteHNO ID: [id number] Author: Jairon Lai MD Service: ? Author Type: Physician Type: Progress Notes Filed: 09/11/2023 1:18 PM Note Text: [facility] [...] Pdet to void lower flow Jairon Lai [facility]11-06-2023 NoteHNO ID: [id number] Author: Phil Beckford MD Service: ? Author [...] benefit from sling incision +/- discussion of [facility]10-07-2023 Emergency department Note* Avelino Scott RN - 08/12/2023 7:35 AM EDT Discharge, follow up, referral, and prescription information reviewed and explained; all questions and concerns addressed. Patient A/Ox3 in NAD, resp. easy unlabored upon discharge, escorted to exit by staff. [facility]10-07-2023 Emergency department Note* Avelino Scott [...] gastroparesis, gastroenteritis, acute cholecystitis, pancreatitis, less likely MS The patient's initial and delta troponin are negative. EKG does not demonstrate any ischemic changes. Low suspicion for MS. Her urinalysis is negative for UTI. Urine [...] follow-up. She was instructed to call her smoking pipe coater and PCP to schedule follow-up appointments. She was instructed to return to the emergency department if she has any new or worsening symptoms. Patient agreeable plan of care. Return precautions discussed at bedside. Spoke with Dr. Salmon regarding patient. Physician to complete their own physical exam and evaluation. Collaboration performed between this STAKEHOLDER MANAGER and physician regarding patient's plan of [...] following orders were created for panel order [place] [facility]. Procedure Abnormality Status --------- ------ Gold Top[[id number]] Final result LIGHT BLUE TOP[[id number]] Final result Dark Green Top[[id number]] Final result Please view results for these [...] Skin PWD. NAD noted. documented in this [facility]10-07-2023 Hospital Discharge instructions* Discharge Instructions* Lev [...] sent through Care Everywhere. * Abdominal Pain (Qatari Indonesian) documented in this encounterOdessa [facility]10-[facility] Emergency department Note* Monserrat Scales RN - 08/12/2023 7:05 AM EDT Report to Les GAMBINO [facility]10-07-2023 Physician Emergency department Note* Lev [...] gastroparesis, gastroenteritis, acute cholecystitis, pancreatitis, less likely MS The patient's initial and delta troponin are negative. EKG does not demonstrate any ischemic changes. Low suspicion for MS. Her urinalysis is negative for UTI. Urine [...] follow-up. She was instructed to call her smoking pipe coater and PCP to schedule follow-up appointments. She was instructed to return to the emergency department if she has any new or worsening symptoms. Patient agreeable plan of care. Return precautions discussed at bedside. Spoke with Dr. Salmon regarding patient. Physician to complete their own physical exam and evaluation. Collaboration performed between this STAKEHOLDER MANAGER and physician regarding patient's plan of [...] following orders were created for panel order [place] Draw. Procedure Abnormality Status --------- ------ Gold Top[[id number]] Final result LIGHT BLUE TOP[[id number]] Final result Dark Green Top[[id number]] Final result Please view results for these tests on the individual orders. GOLD TOP LIGHT BLUE TOP DARK GREEN TOP TROPONIN I Records reviewed: Urogynecology telemedicine visit 08/07/2023 ENT visit 07/11/2023 Family medicine visit 07/06/2023 Lev Ritter APRN AIR TUCKER 08/12/23722 [facility]10-07-2023 Emergency department Note* Jaren Lopez RN - 08/12/2023 4:21 AM EDT Emily at bedside [facility]10-07-2023 Emergency department Triage note* Moisés Duke RN - 08/12/2023 12:24 AM EDT Ambulates to triage with C/O sudden epigastric gnawing, burning pain that woke her from sleep. Alsoreports wheezing. States nausea. Denies fever. Alert. Respirations easy and unlabored. Skin PWD. NAD noted. [facility]10-02-2023 NoteHNO ID: [id number] Author: Pam Wang MD Service: ? Author [...] no Pain: no Abnormal Vaginal Discharge: no TROUBLE CLERK 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 She has no history of an abnormal mammogram with cysts on US LMP: No LMP recorded. Patient has had a hysterectomy.; Menopause 3 years ago; hysterectomy in 2015: Menstrual history: NA; Deliveries: I have confirmed and edited as necessary, the PFSH obtained by others. Pam Wang MD Wire Drawing Machine Operator offered: Patient declines. OBJECTIVE (Virtual) There were no vitals taken for this visit. General: Well appearing, alert, in no acute distress, well-hydrated, well nourished. Impression: aMry Leal is a 53 year old female [...] which included preparing to see the patient, alnf-gg-yfcv patient care, completing clinical documentation, obtaining and/or reviewing separately obtained history, counseling and educating the patient/family/caregiver, ordering medications, tests, or procedures, and communicating with other HCPs (not separately reported). Pam Wang, [facility]09-25-2023 NoteHNO ID: [id number] Author: Nelsy Chávez APRN.AIR TUCKER Service: ? Author Type: Nurse Practitioner Type: [...] new Pain: no Abnormal Vaginal Discharge: no TROUBLE CLERK 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 She has no history of an abnormal mammogram with cysts on US LMP: No LMP recorded. Patient has had a hysterectomy.; Menopause 3 years ago; hysterectomy in 2015: Menstrual history: NA; Deliveries: I have confirmed and edited as necessary, the PFSH obtained by others. Nelsy Chávez, MACHINE PACKAGE SEALER.AIR TUCKER Wire Drawing Machine Operator offered: Patient declines. OBJECTIVE: There were no [...] which included preparing to see the patient, yxzv-rr-rcrq patient care, completing clinical documentation, performing a medically appropriate examination, counseling and educating the patient/family/caregiver and ordering medications, tests, or procedures.[facility]09-25-2023 History of Present illness Narrative* Nelsy Chávez APRN.AIR TUCKER - 07/31/2023 2:16 PM EDT Female Pelvic [...] new Pain: no Abnormal Vaginal Discharge: no TROUBLE CLERK 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 She has no history of an abnormal mammogram with cysts on US LMP: No LMP recorded. Patient has had a hysterectomy.; Menopause 3 years ago; hysterectomy in 2015:Menstrual history: NA; Deliveries: I have confirmed and edited as necessary, the PFSH obtained by others. Nelsy Chávez APRN.AIR TUCKER Wire Drawing Machine Operator offered: Patient declines. OBJECTIVE: There were no [...] which included preparing to see the patient, fqou-fa-bosl patient care, completing clinical documentation, performing a medically appropriate examination, counseling and educating the patient/family/caregiver and ordering medications, tests, or procedures. documented in this encounterOhio State Health System06-21-2023 Evaluation note* Encounter Date Diagnosis [...] note writ ten by Wanda Yang LPN, Permit Review Assistant. Edited and approved by Dr. Beto Snyder MD. [email or web address] Other 06-06-2023 Miscellaneous Notes* Telephone Encounter - Serenity Joseph MA - 04/11/2023 10:19 AM EDT MEREDITH=10/11/22 Spoke with patient she does need a refill Medication pended please file Rx request if appropriate Patient and pharmacy verified documented in this encounterOhio State Health System05-15-2023 Miscellaneous Notes* Telephone Encounter - Regina Philippe - 03/20/2023 2:50 PM EDT Should patient follow up via virtual visit to discuss further? * Telephone Encounter - Steffi Ross LPN - 03/20/2023 10:20 AM EDT Patient's stool tests came back normal. Steffi Ross LPN documented in this encounterOhio State Health System04-18-2023 NotePROCEDURE: XR ANKLE RT MIN [...] Electronically authenticated by: ZAIDA ACOSTA Date: 2023-02-21 10:15[facility]04-18-2023 NotePROCEDURE: XR ANKLE RT MIN [...] Electronically authenticated by: ZAIDA ACOSTA Date: 2023-02-21 10:15[facility]03-28-2023 NotePROCEDURE: XR FOOT RT MIN [...] Electronically authenticated by: ZAIDA ACOSTA Date: 2023-01-31 11:55[facility]03-16-2023 Miscellaneous Notes* Telephone Encounter - Jennie Moreno RN - 01/19/2023 2:17 PM EDT Please review and advise patient. documented in this encounterOhio State Health System03-13-2023 Miscellaneous Notes* Telephone Encounter - Mounika Roberto PA-C - 01/16/2023 1:08 PM EDT Patient was scheduled for virtual PACC appt at 1300 today. Patient did not check in for visit. Called patient at [phone] to see if they needed any assistance logging in and left voicemail. This message routed to [facility]ACC schedulers to contact patient to reschedule [facility] appt. Mounika Roberto PA-C January 16, 2023 1:09 PM documented in this encounterOhio State Health System03-13-2023 History and physical note * Mounika Roberto PA-C - 01/16/2023 1:00 PM EDT This is a virtual visit using [employer] video visit. It required patient-provider interaction for themedical decision making as documented below. I have communicated my name and active licensure. The patient's identity and physical location wereverified at the time of this visit. Either the patient or their legal advertising account representative has been informed of the risks and benefits of and alternatives to treatment through a remote evaluation and consents to proceed with the evaluation remotely. Surgeon: Winston Hannah DO Type of surgery: GEN SURG: POP Patient scheduled for surgery on 02/08/23 . Surgery Location: [facility] Diagnosis: Preop examination (primary encounter [...] in the AM and 4 mg PM gdgitbaosyc-rsdqxfdcx-imnhxkgo (TRELEGY ELLIPTA) 100-62.5-25 mcg Inhale 1 Puff [...] 16, 2023 12:36 PM documented in this encounterOhio State Health System03-13-2023 Instructions* Patient Instructions* Mounika Roberto PA-C - 01/16/2023 12:38 PM EDT PATIENT PREOPERATIVE INSTRUCTIONS Winston Hannah DO has scheduled you for your procedure at this surgery center: [facility]: [phone] -- [address] [address]. Please read below carefully for your personalized [...] Procedures: - YOU MUST HAVE A RESPONSIBLE PIANO BENCH ASSEMBLER TAKE YOU HOME. A FILLER LEAF CUTTER LONG OR WAX ENGRAVER CANNOT BE MADE A RESPONSIBLE PIANO BENCH ASSEMBLER. - We recommend that a responsible person [...] Advance Directive, please fax a copy to [phone] or email to for it to be [...] day. Mounika Roberto PA-C documented in this encounterOhio State Health System03-08-2023 Miscellaneous Notes* Telephone Encounter - Berta Ann RN - 01/11/2023 9:47 AM EST Procedure pended for 02/08/23. Pt aware of need for PACC. Pre-op instructions reviewed, will send to pt's MC, per pt request. Postop appt scheduled. No other questions at this time. Berta FRIEDMANN, RN Specialty Street Roller Engineer documented in this encounterOhio State Health System03-07-2023 History of Present illness Narrative* Winston Hannah, - 01/10/2023 9:09 AM EST Images from the original note were not included. Digestive Disease & Surgery [place] Gastroparesis/Dysmotility Follow Up This encounter was provided [...] of care. NAME: Mary Leal CLINIC NO: [id number] CHIEF COMPLAINT Idiopathic Gastroparesis HISTORY OF PRESENT [...] Normal gastric transit Normal small bowel transit [id number] transit in the distal bowel consistent delay [...] (FLONASE) 50 mcg/actuation nasal spray Use 1 [place] in each nostril once daily. carBAMazepine XR [...] THE LUNGS every 4 hours if needed orahisbxjbj-goywdkhdf-ldkollan (TRELEGY ELLIPTA) 100-62.5-25 mcg Inhale 1 Puff [...] dialysis. No history of symptoms or problems. TROUBLE CLERK: Negative for abnormal vaginal bleeding, abnormal vaginal [...] and plan of care. documented in this encounterOhio State Health System02-23-2023 Miscellaneous Notes* Addendum Note - Yoni Tuttle MD - 12/29/2022 3:37 PM ESTAddended by: YONI TUTTLE MD on: 12/29/2022 03:37 PM Modules accepted: Orders documented in this encounterOhio State Health System02-20-2023 History of Present illness Narrative* [...] 26, 2022 3:17 PM documented in this encounterOhio State Health System02-17-2023 Miscellaneous Notes* Telephone Encounter - Erica Serrano RN - 12/23/2022 4:36 PM EST Message being addressed in another encounter that was forwarded to provider documented in this encounterOhio State Health System02-16-2023 History of Present illness Narrative* Winston Zoya Hannah, DO - 12/22/2022 8:52 AM EST Images from the original note were not included. Digestive Disease & Surgery [place] Gastroparesis/Dysmotility Follow Up This encounter was provided [...] completed esophagram NAME: Mary Leal CLINIC NO: [id number] CHIEF COMPLAINT Idiopathic Gastroparesis HISTORY OF PRESENT [...] chicken spaghetti etc. Duration of symptoms (months): 5350-4036 Weight changes in last 3 months: Stable [...] Normal gastric transit Normal small bowel transit [id number] transit in the distal bowel consistent delay [...] (FLONASE) 50 mcg/actuation nasal spray Use 1 [place] in each nostril once daily. carBAMazepine XR [...] THE LUNGS every 4 hours if needed wduncavgqqq-ufxixcpkp-edgtzuhn (TRELEGY ELLIPTA) 100-62.5-25 mcg Inhale 1 Puff [...] dialysis. No history of symptoms or problems. TROUBLE CLERK: Negative for abnormal vaginal bleeding, abnormal vaginal [...] SIGNATURE: Winston Hannah DO PATIENT NAME: Mary Zoya Leal DATE: 12/22/2022 TIME: 8:57 AM Please note that portions of this documentation have been copied from the prior encounter however all information has been appropriately reviewed and modified to reflect the current clinical status and plan of care. documented in this encounterOhio State Health System02-15-2023 NotePROCEDURE: XR FOOT RT MIN [...] Electronically authenticated by: ZAIDA ACOSTA Date: 2022-12-21 12:24[facility]02-09-2023 History of Present illness Narrative* [...] TONSILLECTOMY HX 07/2021 revision VAGINAL HYSTERECTOMY 2014 [facility] 10/2015 for endometriosis, has remaining [...] in the AM and 4 mg PM lidyhkhupvn-apcfcxquw-ihgztfqe (TRELEGY ELLIPTA) 100-62.5-25 mcg Inhale 1 Puff [...] which included preparing to see the patient, xqmk-bh-bden patient care, completing clinical documentation, obtaining and/or reviewing separately obtained history, counseling and educating the patient/family/caregiver, ordering medications, quincy ts, or procedures, communicating with other HCPs (not separately reported), independently interpreting results (not separately reported), communicating results to the patient/family/caregiver, and care coordination (not separately reported). Mary Obrien MD Colorectal Surgery documented in this encounterOhio State Health System02-08-2023 Miscellaneous Notes* Telephone Encounter - Emily Benton RN - 12/14/2022 5:19 PM EST Several attempts to reach pt unsuccessful - MC sent. * Telephone Encounter - Barber Marie - 12/02/2022 8:39 AM EST SLEEP PHONE Name of caller: Mary Leal Relationship to patient : Self In-state or bff-jl-pgogu patient: In-State Was permission obtained from patient? Yes Patient identified by Name and Date of . ( Mary Leal, 1970). Yes Reason for Call : Patient said her and Emily was chatting through my chart and Emily calledher about 5:15 yesterday. Number to return call [phone] Okay to leave a message ? Yes Last office visit 10/14/[address] Kusum vines Next office visit 01/13/[address] Tuttle virtual documented in this encounterOhio State Health System02-06-2023 Miscellaneous Notes* Telephone Encounter - [...] and follow up testing return call to [phone] documented in this encounterOhio State Health System02-03-2023 Miscellaneous Notes* Telephone Encounter - [...] patient Summary: As noted Concerns: Procedure results Street Roller Engineer plan for next outreach: Will follow up Signature Nelsy Gilmore RN December 08, 2022 documented in this encounterOhio State Health System01-30-2023 Nurse Note* Lisa Contreras RN - 12/05/2022 1:05 PM EST [facility] PRE PROCEDURE CALL Akiko. I'm calling from [facility] endoscopy to provide you with the information for your surgery/procedure tomorrow. Spoke to: Patient CONFIRM Procedure Planned with patient:Esophagogastroduodenoscopy(EGD) with or without biopies based on clinical findings, removal of polyps or lesions Are you familiar with where [facility] is located?yes Address [address] [facility] Patient instructed to enter through the main hospital entrance off [address] at [address] through the revolving doors and check in at the main desk with your seasonal delivery driver's license and insurance card.yes When anesthesia or sedation is being given: Patient instructed you must have an adult seasonal delivery driver because you will not be able to work or drive for the rest of the day after your test.yes Can you please confirm the name and relationship of your seasonal delivery driver. tbd What is the best number for your seasonal delivery driver to be reached at tomorrow for updates? tbd Your seasonal delivery driver is allowed to wait here [...] Do not wear makeup, lotion, or finger swedish. yes Patient instructed: Please bring a list [...] given Any barriers to Patient learning (confusion? Electron Beam Photo Mask Maker needed?): Patient/Patient Electronic Warfare Operator responded appropriately on phone. If patient needs to reschedule please call: [phone] [employer] phone number: [phone] Type of instruction given: Verbal by telephone contact. documented in this encounterOhio State Health System01-27-2023 Nurse Note* Isra Harman RN - 12/02/2022 10:48 AM EST [facility]OS[facility] PRE PROCEDURE CALL Akiko. I'm calling from [facility] endoscopy to provide you with the information for your surgery/procedure tomorrow. Spoke to: Patient CONFIRM Procedure Planned with patient: Are you familiar with where [facility] is located?yes Address [facility] Patient instructed to enter through the main hospital entrance off [address] at [address] through the revolving doors and check in at the main desk with your seasonal delivery driver's license and insurance card.yes When anesthesia or sedation is being given: Patient instructed you must have an adult seasonal delivery driver because you will not be able to work or drive for the rest of the day after your test.yes Can you please confirm the name and relationship of your seasonal delivery driver. Rich What is the best number for your seasonal delivery driver to be reached at tomorrow for updates? [phone] Your seasonal delivery driver is allowed to wait here [...] must be done on Monday.) Did you oyster picker your bowel prep pt calling office [...] Do not wear makeup, lotion, or finger swedish. yes Patient instructed: Please bring a list [...] given Any barriers to Patient learning (confusion? Electron Beam Photo Mask Maker needed?): Patient/Patient Electronic Warfare Operator responded appropriately on phone. If patient needs to reschedule please call: [phone] [facility] phone number: [phone] Type of instruction given: Verbal by telephone contact. documented in this encounterOhio State Health System01-26-2023 NotePROCEDURE: XR FOOT RT MIN [...] Electronically authenticated by: ZAIDA ACOSTA Date: 2022-12-01 11:42[facility]01-26-2023 NotePROCEDURE: XR FOOT RT MIN [...] Electronically authenticated by: ZAIDA ACOSTA Date: 2022-12-01 11:42[facility]01-25-2023 History of Present illness Narrative* Isra Galarzae, DO - 11/30/2022 1:35 PM EST FOLLOW [...] in the AM and 4 mg PM cazmjlijkkp-llxsnkriu-poqtckhy (TRELEGY ELLIPTA) 100-62.5-25 mcg Inhale 1 Puff [...] no edema RESPIRATORY: No dyspnea : neg TROUBLE CLERK: neg The remainder of the review of [...] Isra Masters DO 11/30/2022 documented in this encounterOhio State Health System01-19-2023 Miscellaneous Notes* Telephone Encounter - Erica Serrano RN - 11/24/2022 3:20 PM EST This concern was addressed in the phone encounter on 11/24/22. Patient was called back and informed [employer] will complete Prior Authorization for her sleep study. documented in this encounterOhio State Health System01-19-2023 Miscellaneous Notes* Telephone Encounter - [...] Relationship to patient : Self In-state or oyk-gh-dswns patient: In-State Was permission obtained from patient? Yes Patient identified by Name and Date of . ( Mary Leal, 1970). Yes Reason for Call : Patient stated she spoke to her insurance and they told her that the provider need to call [facility] to see if a PA is needed for the PAP Titration. Number to return call [phone] Okay to leave a message ? Yes Last office visit 10/14/[address] Tuttle virtual Next office visit None documented in this encounterOhio State Health System01-19-2023 History of Present illness Narrative* Isra Masters DO - 11/24/2022 8:29 AM EST Images from the original note were not included. Robert Test Report - [id number] Test start date: 11/17/2022 10:03 AM Safety Representative: josephine Interpretation date: 11/24/2022 Ordering physician: Isra Masters DO Referring physician: Patient Information Name: Mary Leal ID: [id number] date: 1970 Height ft. in.: 5' 4 [...] Normal gastric transit Normal small bowel transit [id number] transit in the distal bowel consistent delay post anastomosis Signature _Dr. Masters Date _11/24/2022 documented in this encounterOhio State Health System01-17-2023 Miscellaneous Notes* Telephone Encounter - Regina Philippe - 11/22/2022 3:37 PM EST Patient calling to verify that Smart Pill monitor was received at [facility]. Monitor was sent via [employer] on 11/19/22. Patient is requesting a confirmation. documented in this encounterOhio State Health System01-16-2023 Miscellaneous Notes* Telephone Encounter - Erica Serrano RN - 11/21/2022 9:11 AM EST [employer] message sent to patient. Prior Sleep study forwarded to MD to review, Order pended for PAP-titration for provider to review and sign if necessary. documented in this encounterOhio State Health System01-16-2023 History and physical note * Yodit Back PA-C - 11/21/2022 8:00 AM EST PREANESTHESIA CONSULT CLINIC TELEHEALTH VISIT Patient has been identified by name and date of : Yes This is a virtual visit using [employer] video visit. It require patient-provider interaction for [...] in the AM and 4 mg PM bexbyqqkzeo-ljlcbcgos-cekxwoth (TRELEGY ELLIPTA) 100-62.5-25 mcg Inhale 1 Puff as instructed once daily. No current facility-administered medications for this visit. COVID VACCINATION STATUS: Fully vaccinated REVIEW OF SYSTEMS: Pain Assessment: General: No weight loss, malaise or fevers. Neuro: No history of TIA's, stroke, INDUCTION HEAT TREATER tumor, impaired sensorium, hemiplegia, paraplegia or quadraplegia. [...] requiring medication, no history of angina, CHF, MS, cardiac surgery or stents. Denies rest pain, gangrene or revascularization/amputation for PVD. No history of cardiovascular symptoms or problems. + HLD GI: See HPI : No history of dysuria, frequency or incontinence,, stones or chronic kidney disease TROUBLE CLERK: Negative for abnormal vaginal bleeding, abnormal vaginal [...] (%) Date Value 06/10/2021 5.9 All in [facility] Impression/Recommendations ASSESSMENT: HTN (hypertension) Assessment: [...] 8:07 AM PAGER/CONTACT #: documented in this encounterOhio State Health System01-12-2023 Miscellaneous Notes* Addendum Note - Yoni Tuttle MD - 11/17/2022 3:16 PM ESTAddended by: YONI TUTTLE MD on: 11/17/2022 03:16 PM Modules accepted: Orders * Telephone Encounter - Yoni Tuttle MD - 11/17/2022 3:11 PM EST 09/22/22: PSG from [facility]: Total (RDI) AHI by 3% desat 27.1, [...] - 11/02/2022 12:33 PM EST Received from [facility] Sleep [facility] Report via fax. 8 pages indexed to chart. documented in this encounterOhio State Health System01-12-2023 History of Present illness Narrative* [...] complete. You will be wearing a Data Offal Worker around your neck like a necklace during the test. You must keepthis near you at all times. The Data Offal Worker has an EVENT button. You will be [...] is inside your body. Return the Data Offal Worker to the [facility] after your test is completed. Brittanie Gillespie RN documented in this encounterOhio State Health System01-09-2023 NotePROCEDURE: XR FOOT RT MIN [...] authenticated by: ZAIDA ACOSTA Date: 2022-11-14 10:39[facility] [id number] NotePROCEDURE: XR FOOT RT MIN 3 VIEWS [...] authenticated by: NICKI DACOSTA Date: 2022-11-10 11:44[facility] [id number] Miscellaneous Notes* Telephone Encounter - Annmarie Gillespie RN - 11/10/2022 9:07 AM EST Telephoned patient with SmartPill procedure appointment reminder/instructions. Brittanie Gillespie RN documented in this encounterOhio State Health System01-04-2023 Miscellaneous Notes* Telephone Encounter - [...] to make it legit. documented in this encounterOhio State Health System01-04-2023 Miscellaneous Notes* Telephone Encounter - Wali Doll - 11/09/2022 9:47 AM EST SENT PATIENTS RX TO PREFERRED LOCATION [facility] [phone] Wali Doll CMA documented in this encounterOhio State Health System01-03-2023 Miscellaneous Notes* Telephone Encounter - Regina Denae - 11/08/2022 11:15 AM EST Per Soumya in provider services at [facility]. No prior auth is needed,coverage is active, patient can proceed with Smart Pill. Placed a new referral. Call Ref # [id number] * Telephone Encounter - Regina Philippe - 11/02/2022 3:51 PM EST Spoke with patient. Smart Pill is a covered benefit. Sent email to Smart Pill asp net mvc developer and [facility] to assist in scheduling Smart Pill [...] procedure, she can call Earlene Martin at [phone]. documented in this encounterOhio State Health System12-19-2022 Miscellaneous Notes* Telephone Encounter - [...] calling: self Call patient at: at home [phone] (home) [phone] (cell) Closing statement: Symptom Call: Thank you for calling [facility], your call is very important. A nurse will call in approximately 2-4 hours during business hours. If this is an emergency, please contact 911. Nati Hernandez documented in this encounterOhio State Health System12-13-2022 Miscellaneous Notes* Telephone Encounter - Brooklyn Valle LPN - 10/18/2022 2:43 PM EST Requested Prescriptions Pending Prescriptions Disp Refills Dexlansoprazole 60 mg CpDM [Pharmacy Med Name: DEXLANSOPRAZOLE DR 60 MG CAP] 30 capsule 5 Sig: take 1 capsule by mouth before breakfast Patient last seen 10/11/2022 documented in this encounterOhio State Health System12-12-2022 NotePROCEDURE: XR FOOT RT MIN [...] Electronically authenticated by: NICKI DACOSTA Date: 2022-10-17 18:06[facility]12-12-2022 NotePROCEDURE: XR FOOT RT MIN [...] Electronically authenticated by: NICKI DACOSTA Date: 2022-10-17 18:06[facility]12-12-2022 Miscellaneous Notes* Telephone Encounter - Wali Doll - 10/17/2022 9:17 AM EST Faxed order, office notes, demographics, and sleep study to: DME name: [facility] fax: [phone] DME ph: ALSO SENT A REQUEST FOR PTS PSG FROM [facility] [place] documented in this encounterOhio State Health System12-06-2022 History of Present illness Narrative* [...] (FLONASE) 50 mcg/actuation nasal spray Use 1 [place] in each nostril once daily. carBAMazepine XR (TEGRETOL XR) 400 mg 12 hr tablet Take 400 mg by mouth q 12 HR. ARIPiprazole (ABILIFY) 30 mg tablet Take 30 mg by mouth once daily. albuterol HFA (PROVENTIL HFA, VENTOLIN HFA) 90 mcg/actuation inhaler inhale 2 puffs by mouth INTO THE LUNGS every 4 hours if needed oxiwzfhfzoe-uoflywolb-eftkqdvk (TRELEGY ELLIPTA) 100-62.5-25 mcg Inhale 1 Puff [...] no edema RESPIRATORY: No dyspnea : neg TROUBLE CLERK: neg The remainder of the review of [...] Isra Masters DO 10/11/2022 documented in this encounterOhio State Health System12-05-2022 Evaluation note* Encounter Date Diagnosis [...] for rotator cuff healing or recurrent tear [employer] Other 12-01-2022 Evaluation note* Encounter Date Diagnosis [...] note writ ten by Wanda Yang LPN, Permit Review Assistant. Edited and approved by Dr. Beto Snyder MD. [employer] Other 11-17-2022 Evaluation note* Encounter Date Diagnosis [...] note writ ten by Lupillo Amezquita MA, Permit Review Assistant. Edited and approved by Dr. Beto Snyder MD. [employer] Other 11-17-2022 Evaluation note* Encounter Date Diagnosis Assessment Notes Treatment Notes Treatment Clinical Notes Sep, Lumbosacral spondylosis without myelopathy (ICD-10 - M47.817) [employer] Other 11-09-2022 Evaluation note* Encounter Date Diagnosis [...] note writ ten by Wanda Yang LPN, Permit Review Assistant. Edited and approved by Dr. Beto Snyder MD. [employer] Other 09-21-2022 NotePROCEDURE: XR ANKLE RT MIN [...] authenticated by: NICKI DACOSTA Date: 2022-07-27 19:10[facility] [id number] NotePROCEDURE: XR ANKLE RT MIN 3 VIEWS, XR FOOT RT MIN 3 VIEWS COMPARISON: 01/06/2021 HISTORY: Pain of right ankle joint FINDINGS: BONES:Remote osteotomy head of the first metatarsal fixed with a single screw. No acute fracture or dislocation. SOFT TISSUES:Negative. No visible soft tissue swelling. EFFUSION:None visible. OTHER: Negative. IMPRESSION: No acute abnormality Electronically authenticated by: NICKI DACOSTA Date: 2022-07-27 19:10[facility] [id number] Miscellaneous Notes* Telephone Encounter - Silvia Ybarra - 07/26/2022 2:56 PM EDT PA for Dexlansoprazole initiated electronically. Awaiting response [employer] ID# [id number] * Telephone Encounter - Tracy HUNTER - 07/26/2022 1:43 PM EDT Patient needs a prior authorization Medication Order name: Dexlansoprazole 60 mg CpDM Medication: DEXLANSOPRAZOLE 60 MG CAPSULE,BIPHASE DELAYED RELEASE [[id number]] Dispense as Written: No documented in this encounterOhio State Health System09-20-2022 History of Present illness Narrative* [...] in the AM and 4 mg PM usdqnaqoefz-oiyallytg-lbwlbwel (TRELEGY ELLIPTA) 100-62.5-25 mcg Inhale 1 Puff [...] (FLONASE) 50 mcg/actuation nasal spray Use 1 [place] in each nostril once daily. carBAMazepine XR [...] which included preparing to see the patient, euci-rj-jmpr patient care, completing clinical documentation, obtaining and/or reviewing separately obtained history, performing a medically appropriate examination, counseling and educating the pat ient/family/caregiver, ordering medications, tests, or procedures, and care coordination (not separately reported). Mary Obrien MD Colorectal Surgery documented in this encounterOhio State Health System09-20-2022 Nurse Note* Re Sierra MA [...] Temperature: No Drains: No documented in this encounterOhio State Health System08-04-2022 NotePROCEDURE: In the coronal projection, [...] and signed by Quinton Carson on 06/09/[address] [facility] [id number] Miscellaneous Notes* Telephone Encounter - Raquel Mullen - 06/07/2022 3:34 PM EDT Patient needs RX sent [facility]. The previous was sent to [...] process accordingly. Raquel Mullen documented in this encounterOhio State Health System07-21-2022 Evaluation note* Encounter Date Diagnosis [...] note writ ten by Lupillo Amezquita MA, Permit Review Assistant. Edited and approved by Dr. Beto Snyder MD. [email or web address] Other 07-05-2022 Evaluation note* Encounter Date Diagnosis [...] Patient care instructions given in writing by [facility] Care At Home document. [employer] Other [id number] Miscellaneous Notes* Telephone Encounter - Jet Wong [...] concerns at this time. documented in this encounterOhio State Health System06-21-2022 Miscellaneous Notes* Telephone Encounter - [...] procedure on 03/28. Thanks! documented in this encounterOhio State Health System06-17-2022 History of Present illness Narrative* Jessi Sheets APRN.AIR TUCKER - 04/22/2022 12:20 PM EDT COLORECTAL SURGERY [...] (FLONASE) 50 mcg/actuation nasal spray Use 1 [place] in each nostril once daily. carBAMazepine XR [...] THE LUNGS every 4 hours if needed xdruznbmwaf-qjybcoybf-qrbsuwvq (TRELEGY ELLIPTA) 100-62.5-25 mcg Inhale 1 Puff [...] Sheets APRN.CNP Colorectal Surgery documented in this encounterOhio State Health System06-17-2022 Nurse Note* Mary Mena MA - 04/22/2022 12:06 PM EDT .What is the reason for your visit today? Post op Who is your referring physician? Self Are you having poor oral intake? NO Have you had unintentional weight loss of 15 lbs/7 Kg in the last 3-6 months? NO Bowels: regular Wound: none Temperature: No Drains: No documented in this encounterOhio State Health System06-02-2022 Miscellaneous Notes* Telephone Encounter - Rachael - 04/07/2022 12:35 AM EDT Record ID: [id number] Patient name: Mary Leal Date: April [birth year], [...] likely is it that you would recommend [facility] to a friend or family member? -> likely Please tell me what you liked best about your hospital experience: -> The nurses documented in this encounterOhio State Health System05-31-2022 NoteHNO ID: [id number] Author: Pravin Ladd MD Service: Colorectal Author Type: Resident Type: Progress Notes Filed: 04/05/2022 7:52 AM Note Text: COLORECTAL SURGERY PROGRESS NOTE Mary Leal [id number] ASSESSMENT AND PLAN Mary Leal is a [...] - General Pravin Ladd MD General Surgery residentMassachusetts Eye & Ear [id number] NoteHNO ID: [id number] Author: Nita Lamas MD Service: Colorectal Author Type: Fellow Type: Progress Notes Filed: 04/04/2022 9:40 AM Note Text: COLORECTAL SURGERY PROGRESS NOTE Mary Leal [id number] ASSESSMENT AND PLAN Mary Leal is a [...] Nita Lamas MD Colorectal Fellow 04/04/2022 9:40 [facility]05-29-2022 NoteHNO ID: [id number] Author: Pravin Ladd MD Service: Colorectal Author Type: Resident Type: Progress Notes Filed: 04/03/2022 8:03 AM Note Text: COLORECTAL SURGERY PROGRESS NOTE Mary Leal [id number] ASSESSMENT AND PLAN Mary Leal is a [...] ENTEROSTOMY W/ RESECTION AND ANASTOMOSIS - General Doua Elamin, MD General Surgery ResidentMassachusetts Eye & Ear [id number] NoteHNO ID: [id number] Author: Nancy Cadena MD Service: Colorectal Author Type: Resident Type: Progress Notes Filed: 04/02/2022 8:34 AM Note Text: COLORECTAL SURGERY PROGRESS NOTE Mary Leal [id number] ASSESSMENT AND PLAN Mary Leal is a [...] Nancy Cadena MD General Surgery Resident, PGY-2 [id number] NoteHNO ID: [id number] Author: Nancy Cadena MD Service: Colorectal Author [...] 2022 COLORECTAL SURGERY PROGRESS NOTE Mary Leal [id number] ASSESSMENT AND PLAN Mary Leal is a [...] Nancy Cadena MD General Surgery Resident, PGY-2 [id number] [id number] NoteHNO ID: [id number] Author: Yolanda Lamb MD Service: Colorectal Author Type: Resident Type: Progress Notes Filed: 03/31/2022 9:08 AM Note Text: COLORECTAL SURGERY PROGRESS NOTE Mary Leal [id number] ASSESSMENT AND PLAN Mary Leal is a [...] RESECTION AND ANASTOMOSIS - General Yolanda Lamb MDMassachusetts Eye & Ear [id number] NoteHNO ID: [id number] Author: Pravin Ladd MD Service: Colorectal Author [...] 2022 COLORECTAL SURGERY PROGRESS NOTE Mary Leal [id number] ASSESSMENT AND PLAN Mary Leal is a 51 year old female with PMHx Asthma, HTN, BPD, Dyslipidemia and colonic inertia who is now s/p Hand assisted TAC, EI takedown + OANH 03/28 - D/C TOOL TURRET LATHE SET UP OPERATOR - Advance to GI soft diet - [...] RESECTION AND ANASTOMOSIS - General Pravin Ladd MDMassachusetts Eye & Ear [id number] NoteHNO ID: [id number] Author: ELIZABETH Dias Service: Care Management Author Type: Manufacturing Controller Type: Care Mgt Initial Assessment Filed: 03/29/2022 [...] time ADVANCE DIRECTIVES Current Advance Directive: None Child Adolescent Care Attempted to Assist with AD Completion: Yes [...] Housing Stability: Not on file PATIENT SCREEN Patient/Electronic Warfare Operator Stated Goals: To be cured/healed Under the [...] March 29, 2022 TIME: 3:45 PM PHONE: [phone] [id number] NoteHNO ID: [id number] Author: Pravin Ladd MD Service: Colorectal Author Type: Resident Type: Progress Notes Filed: 04/01/2022 5:50 AM Note Text: COLORECTAL SURGERY PROGRESS NOTE Mary Leal [id number] ASSESSMENT AND PLAN Mary Leal is a 51 year old female with PMHx Asthma, HTN, BPD, Dyslipidemia and colonic inertia who is now s/p Hand assisted TAC, EI takedown + OANH 03/28 - TOOL TURRET LATHE SET UP OPERATOR for pain control - Magnesium replacement for [...] RESECTION AND ANASTOMOSIS - General Pravin Ladd MDMassachusetts Eye & Ear [id number] NoteHNO ID: [id number] Author: Nathanael Craig DO Service: Anesthesiology Author Type: Anesthesiologist Type: Anesthesia Procedure Notes Filed: 03/28/2022 4:16 PM Note Text: ANESTHESIOLOGY PROCEDURE NOTE Peripheral Nerve Block General Information Procedure Start Time/Medication Administration: 03/28/2022 3:50 PM Procedure End time: 03/28/2022 3:55 PM Patient location during procedure: OR Timeout Performed Pre-procedure: timeout performed Consent Obtained: Yes 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: care steam setter and arm band Reason for block: post-op [...] identity confirmed: arm band and care steam setter Reason for block: post-op pain management/at surgeon's [...] March 28, 2022 TIME: 4:14 PM CSN: [id number] NoteHNO ID: [id number] Author: Adriana Stanley APRN.CRNA Service: Anesthesiology Author Type: Nurse Child Development Consultant Type: Anesthesia Procedure Notes Filed: 03/28/2022 9:49 AM Note Text: ANESTHESIOLOGY PROCEDURE NOTE Airway General Information Procedure Start Time/Medication Administration: 03/28/2022 9:21 AM Patient location during procedure: OR 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, care steam setter and patient Staffing LITHOGRAPHIC PRESS OPERATOR APPRENTICE: Adriana Stanley APRN.LITHOGRAPHIC PRESS OPERATOR APPRENTICE Performed by: BECCA Indications and Patient Condition [...] March 28, 2022 TIME: 9:49 AM CSN: [id number] NoteHNO ID: [id number] Author: Adriana Stanley APRN.CRNA Service: Anesthesiology Author Type: Nurse Child Development Consultant Type: Anesthesia Procedure Notes Filed: 03/28/2022 9:49 [...] March 28, 2022 TIME: 9:48 AM CSN: [id number] Miscellaneous Notes* Telephone Encounter - Jet Wong [...] colon. Would like a call back at [phone] documented in this encounterOhio State Health System05-10-2022 Miscellaneous Notes* Telephone Encounter - Jennie Moreno RN - 03/15/2022 2:39 PM EDT Outside medical record EGD H Pylori biopsy received by fax. Scanned into [employer] under scanned documents. Hard copy handed to Dr. Masters. Per Dr Masters- please call patient and let her know the H Pylori biopsy is negative. Called patient . Message relayed. No questions at this time. * Telephone Encounter - Karthikeyan Turk RN - 03/15/2022 2:21 PM EDT Called [facility] and I was transferred to medical records. Requesting a cover sheet with the request result be faxed to them at [phone]. H Pylori result request faxed with confirmation. * Telephone Encounter - Karthikeyan Turk RN - 03/15/2022 2:21 PM EDT Images from the original note were not included. DO Leo Mariano Dd Clinical Pool Please contact [facility] [phone] to see if the H pylori biopsy is back yet from her EGD there documented in this encounterOhio State Health System05-10-2022 Evaluation note* Encounter Date Diagnosis [...] note writ ten by Wanda Yang LPN, Permit Review Assistant. Edited and approved by Dr. Beto Snyder MD. [employer] Other 05-10-2022 Miscellaneous Notes* Telephone Encounter - Silvia Ybarra - 03/15/2022 1:24 PM EDT PA for Dexilant renewal initiated through [employer]. Awaiting response ID# [id number] Rx BIN [id number] Rx PCN MCAIDOH Rx Grp [id number] documented in this encounterOhio State Health System05-10-2022 Miscellaneous Notes* Telephone Encounter - [...] concerns at this time. documented in this encounterOhio State Health System05-10-2022 History of Present illness Narrative* Isra Masters [...] seem be musculoskeletal in nature.EGD done in [facility] showed some gastritis and duodenitis. Current [...] (FLONASE) 50 mcg/actuation nasal spray Use 1 [place] in each nostril once daily. carBAMazepine XR [...] THE LUNGS every 4 hours if needed xglhcoljnmg-yxqoabjtt-ahczrqxt (TRELEGY ELLIPTA) 100-62.5-25 mcg Inhale 1 Puff [...] no edema RESPIRATORY: No dyspnea : neg TROUBLE CLERK: neg The remainder of the review of [...] Isra Masters DO 03/15/2022 documented in this encounterOhio State Health System05-09-2022 Instructions* Patient Instructions* Urmila Alexander APRN.AIR TUCKER - 03/14/2022 10:43 AM EDT PATIENT PREOPERATIVE INSTRUCTIONS Mary Obrien MD has scheduled you for your procedure at this surgery center: [facility]: [phone] --[id number] [address]. Please check in on the1st floor at [...] Procedures: - YOU MUST HAVE A RESPONSIBLE PIANO BENCH ASSEMBLER TAKE YOU HOME. A FILLER LEAF CUTTER LONG OR WAX ENGRAVER CANNOT BE MADE A RESPONSIBLE PIANO BENCH ASSEMBLER. - We recommend that a responsible person [...] Advance Directive, please fax a copy to [phone] or email to for it to be [...] your chart that day. documented in this encounterOhio State Health System05-09-2022 History and physical note * [...] fevers. Neurological: No history of TIA's, stroke, INDUCTION HEAT TREATER tumor, impaired sensorium, hemiplegia, paraplegia orquadraplegia. No [...] > 1 time per night or hematuria. TROUBLE CLERK: Negative for abnormal vaginal bleeding, abnormal vaginal [...] TONSILLECTOMY HX 07/2021 revision VAGINAL HYSTERECTOMY 2014 [facility] 10/2015 for endometriosis, has remaining [...] every 4 hours if needed Taking Yes jnmxzxqpwqr-dtozlcjvv-bpsztxlh (TRELEGY ELLIPTA) 100-62.5-25 mcg Inhale 1 Puff [...] (FLONASE) 50 mcg/actuation nasal spray Use 1 [place] in each nostril once daily. No medication [...] or any previous visit (from the past 33396 hour(s)). EKG: Assessment HTN (hypertension) Assessment: Managed [...] of difficult airway No abnormal airway history SFS2LO0-ANCc Score: Age: <65 Sex: Female Hypertension history: [...] daily. Planned Anesthetic: general Labs ordered in [facility] per Surgeon ( dated 02/09/2022) CON ABO completed 10/15/2021 Instructions Given to Patient: Instructions located in the after visit summary. Patient given verbal and written preop instructions and voices comprehension and compliance. SIGNATURE: Urmila Alexander APRN.CNP PATIENT NAME: Mary Leal DATE: March 14, 2022 TIME: 10:30 AM PAGER/CONTACT #: documented in this encounterOhio State Health System04-25-2022 Miscellaneous Notes* Telephone Encounter - [...] Monday, 03/02, at 0900 - routed to [employer] to make it legit. Please advise. documented in this encounterOhio State Health System04-15-2022 Instructions* Patient Instructions* Nelsy Chávez APRN.CNP - 02/18/2022 1:18 PM EDT Healing as expected from surgery. You have a pinpoint area of suture just under the vaginal epithelium surface that may need more time to fully heal. Please call the office if you would like to try vaginal estrogen cream or with any questions/concerns. documented in this encounterOhio State Health System04-15-2022 History of Present illness Narrative* [...] no Pain: no Abnormal Vaginal Discharge: no TROUBLE CLERK HISTORY: Last pap: cannot remember; Last mammogram: She has never had a mammogram LMP: No LMP recorded. Patient has had a hysterectomy.; Menopause n/a: Menstrual history: NA; Deliveries: I have confirmed and edited as necessary, the PFSH obtained by others. Nelsy Chávez APRN.AIR TUCKER Wire Drawing Machine Operator offered: Patient declines. OBJECTIVE: There were no [...] if this helps. She is traveling to [place] to see her ailing father for two weeks and would like to wait for now to see if things resolve. She knows she can call the office if she changes her mind and would like to trial vaginal estrogen Nelsy Chávez APRN.KWESI documented in this encounterOhio State Health System04-08-2022 History of Present illness Narrative* Flaca Bartholomew, [...] 15 Flaca Bartholomew PT documented in this encounterOhio State Health System04-05-2022 Nurse Note* Re Sierra MA [...] Temperature: No Drains: No documented in this encounterOhio State Health System04-05-2022 History of Present illness Narrative* Mary Obrien MD - 02/08/2022 2:40 PM EDT COLORECTAL SURGERY February 08, 2022 Mary Keys Elvis Chief Complaint: follow up History of [...] (FLONASE) 50 mcg/actuation nasal spray Use 1 [place] in each nostril once daily. carBAMazepine XR [...] THE LUNGS every 4 hours if needed liagcmpzgva-jspxedadl-xqmcjgbi (TRELEGY ELLIPTA) 100-62.5-25 mcg Inhale 1 Puff [...] medical complications of surgery including DVT/PE, PNA, MS, stroke, and . The patient understands these risks and is in agreement with proceeding. Medical Decision Making: Data Reviewed: Tests & Documents Reviewed/ordered: Review of prior notes from myself, OR, Dr. Wang Review of prior operative reports I have discussed Mary Leal's treatment plan and/or results with the patient. Mary Obrien MD Colorectal Surgery documented in this encounterOhio State Health System04-05-2022 History of Present illness Narrative* Magali Mitchell APRN.AIR TUCKER - 02/08/2022 11:04 AM EDT Female Pelvic [...] you received about pain medications helpful? Yes Wire Drawing Machine Operator offered:Patient declines OBJECTIVE: BP 113/76 Pulse 74 [...] 6 month Patient expressed understanding. Magali Mitchell APRN.AIR TUCKER documented in this encounterOhio State Health System03-29-2022 Miscellaneous Notes* Telephone Encounter - Steffi Ross LPN - 02/01/2022 11:08 AM EDT [facility] 06-10-21 Pharmacy and Rx request verified. Please file if appropriate. Thank you Steffi Ross LPN documented in this encounterOhio State Health System03-28-2022 NoteHNO ID: [id number] Author: Newton Dubbs, PT Service: ? Author Type: Physical Therapist [...] untimed codes) : 40 Newton Woodward PT, [facility]03-28-2022 History of Present illness Narrative* Newton [...] Newton Woodward PT, DPT documented in this encounterOhio State Health System03-21-2022 NoteHNO ID: [id number] Author: Newton Woodward PT Service: ? Author Type: Physical Therapist Type: Progress Notes Filed: 01/24/2022 1:23 PM Note Text: Episode Visit Count: 2 Therapist That Will Oversee The Plan Of Care: La then transfer to [facility] Start of Care Date: 01/18/22 Onset [...] untimed codes) : 45 Newton Woodward PT, [facility]03-15-2022 NoteHNO ID: [id number] Author: Jessi Isaacs, PT Service: ? Author [...] Planned: 8 Planned Treatment Interventions: Therapeutic exercise (48765);Neuromuscular re-education (85110);Manual therapy (97059);Therapeutic activities (95331);Self-[place] [facility] management (44394);Patient/Family/Caregiver Education PLAN FOR NEXT VISIT: PFM dynamics; biofeedback Patient demonstrates good understanding of plan of care and treatment. The above goals and plan of care were discussed and agreed upon by patient/family. Transfer of Care Due To: Closer to Home (patient to transfer in February 2022) Patient transferring care to: [facility] Flaca Bartholomew SUBJECTIVE: Mary Leal is [...] function/quality of life. 52 (more content not included)..[facility]02-21-2022 NoteHNO ID: [id number] Author: Moni Munguia RN Service: Care Management Author Type: Registered Nurse Type: Care Mgt Progress Note Filed: 12/27/2021 4:17 PM Note Text: CARE MANAGEMENT DISCHARGE NOTE SERVICE DATE: 12/27/2021 SERVICE TIME: 4:14 PM LOS: 3 days Admission Date: 12/24/2021 DISCHARGE ARRANGEMENT (list agency and phone number) Discharge Arrangement: Home with Home Health Provider Name: [address] CAREGIVER ASSESSMENT: HANDOFF COMMUNICATION: Handoff to: Primary Care Physician Primary Care Physician Name/Phone: Eliceo Gómez Jr [phone] TRANSPORTATION ARRANGEMENTS: Transportation Arrangements: N/A The Pt is accepted by [address] for new ostomy care. The SOC will be within 24 to 48 hrs. The pt will be contacted directly with the SOC. The Pt verbalized agreement with this dc plan. SIGNATURE: Moni Munguia RN PATIENT NAME: Mary Leal DATE: December 27, 2021 TIME: 4:14 PM PAGER/CONTACT #: [phone] [id number] NoteHNO ID: [id number] Author: Parish Celeste DO Service: Colorectal Author [...] - Pain and nausea control -> d/c TOOL TURRET LATHE SET UP OPERATOR - D/c entereg - Culturelle - Continue [...] 0659 12/27/21 07 - 12/28/21 0659 Shift 5843-0117 3312-2602 3656-7298 24 Hour Total 5224-8556 0001-9564 0959-2772 24 Hour Total INTAKE PO 60 60 PO 60 60 IV 2100 2100 Volume (mL) (lactated ringers iv infusion) 2100 2100 Shift Total 2160 2160 OUTPUT Urine 6894 544 3567 2300 200 200 Void (ml) 300 1000 1300 200 200 Output ( Indwelling Urinary Catheter 12/24/21 Call 16 Fr) 1000 1000 Emesis 0 0 Emesis (ml) 0 0 Ostomy 250 125 375 Ileostomy 1 250 125 375 # of BMs Number of BMs 0 x 0 x Shift Total 2145 172 7396 2675 200 200 Weight (kg) 82.1 82.1 82.1 82.1 82.1 82.1 82.1 82.1 Recent Labs 12/26/21 0755 12/25/21 0606 WBC -- 5.96 HB -- 11.6 HCT -- 35.2* PLT -- 271 NA 139 141 K 4.0 4.0 CHLOR 102 104 CO2 28 28 CREAT 0.62* 0.72 BUN 10 12 GLUC 71 91 CA 8.5 8.5 Parish Celeste DO General Surgery, PGY-4 [id number] After 6 pm and on the weekends please page [phone] 12-26-2021 NoteHNO ID: [id number] Author: Jenifer Ayala MD Service: Colorectal Author Type: Fellow Type: Progress Notes Filed: 12/26/2021 12:13 PM Note Text: GENERAL SURGERY PROGRESS NOTE Name: Mary Leal 12/26/2021 12:11 PM Interval Events: Patient doing well post-operatively. No acute events overnight. Tolerating CLD diet without nausea or vomiting. Stoma productive of bilious fluid + gas Pain well controlled with TOOL TURRET LATHE SET UP OPERATOR + oral pain medication (feels most relief from po oxycodone). Assessment and Plan: 51 year old female with pelvic organ prolapse and chronic constipation, likely slow transit but with possible component of pelvic outlet obstruction and with discordant testing. Patient underwent laparoscopic protopexy on 12/24/21 surgery was uneventful. Post-operative course has been uncompliacted. Pain control- Tylenol Gabapentin Toradol TOOL TURRET LATHE SET UP OPERATOR: Dilaudid, tegretol, klonopin, requip, trintellix, oxycodone Cardiac- [...] any questions or concerns page [facility] [id number] Objective Physical exam: BP 117/66 Pulse 77 [...] 0659 12/26/21 07 - 12/27/21 0659 Shift 7505-7326 5500-7449 1138-7852 24 Hour Total 7819-6851 6695-0267 6831-2947 24 Hour Total INTAKE PO 60 60 PO 60 60 IV 213 668 881 Volume (mL) (lactated ringers iv infusion) 213 668 881 Shift Total 273 668 941 OUTPUT Urine 075 934 0018 1000 Void (ml) 0 0 Output ( Indwelling Urinary Catheter 12/24/21 Call 16 Fr) 628 169 1056 1000 Emesis 0 0 Emesis (ml) 0 0 Ostomy 100 100 Ileostomy 1 100 100 # of BMs Number of BMs 0 x 0 x Shift Total 623 182 8151 1000 Weight (kg) 82.1 82.1 82.1 82.1 [...] Diagnosis Date Noted - Pelvic floor dysfunction 12/24/2021[facility]irmarySkpnetjg85-62-2241 NoteHNO ID: [id number] Author: Sonido Owen MD Service: Colorectal Author [...] been uncompliacted. Pain control- Tylenol Gabapentin Toradol TOOL TURRET LATHE SET UP OPERATOR: Dilaudid, tegretol, klonopin, requip, trintellix Cardiac- Vitals: [...] Owen MD General Surgery PGY 2 Pg [phone] For any questions or concerns page [facility] [id number] Objective Physical exam: BP 111/61 Pulse 86 [...] 0659 12/25/21 0700 - 12/26/21 0659 Shift 3708-5916 7467-2678 7983-3784 24 Hour Total 0675-8034 8348-0718 7440-5152 24 Hour Total INTAKE PO 240 120 360 PO 240 120 360 IV 3100 3100 Volume (mL) (lactated ringers iv infusion) 1800 1800 Volume (mL) (lactated ringers iv infusion) 1300 1300 Shift Total 3100 886 358 1933 OUTPUT Urine 200 195 732 8806 OR Urine Output 200 200 Output ( Indwelling Urinary Catheter 12/24/21 Call 16 Fr) 300 500 800 Emesis 0 0 0 Emesis (ml) 0 0 0 Ostomy 0 0 0 Ileostomy 1 0 0 0 # of BMs Number of BMs 0 x 0 x 0 x Blood 50 50 Estimated Blood loss 50 50 Shift Total 250 933 141 7841 Weight (kg) 82.1 82.1 82.1 82.1 82.1 [...] Diagnosis Date Noted - Pelvic floor dysfunction 12/24/2021[facility]arySiigjvxa33-23-5814 NoteHNO ID: [id number] Author: Adriana Stanley APRN.CRNA Service: Anesthesiology Author Type: Nurse Child Development Consultant Type: Anesthesia Procedure Notes Filed: 12/24/2021 8:44 [...] December 24, 2021 TIME: 8:44 AM CSN: [id number] NoteHNO ID: [id number] Author: Adriana Stanley APRN.CRNA Service: Anesthesiology Author Type: Nurse Child Development Consultant Type: Anesthesia Procedure Notes Filed: 12/24/2021 8:44 AM Note Text: ANESTHESIOLOGY PROCEDURE NOTE Airway General Information Procedure Start Time/Medication Administration: 12/24/2021 8:22 AM Patient location during procedure: OR 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, care steam setter and patient Staffing Anesthesiologist: Chayito Ojeda MD LITHOGRAPHIC PRESS OPERATOR APPRENTICE: Adriana Stanley APRN.LITHOGRAPHIC PRESS OPERATOR APPRENTICE Performed by: LITHOGRAPHIC PRESS OPERATOR APPRENTICE and anesthesiologist Indications and Patient Condition Preoxygenated: [...] 1 Airway not difficult SIGNATURE: Adriana Stanley APRN.LITHOGRAPHIC PRESS OPERATOR APPRENTICE PATIENT NAME: Mary Leal DATE: December 24, 2021 TIME: 8:43 AM CSN: [id number] Evaluation note* Encounter Date Diagnosis Assessment Notes [...] note writ ten by Lupillo Amezquita MA, Permit Review Assistant. Edited and approved by Dr. Beto Snyder MD. [employer] Other 11-01-2021 Evaluation note* Encounter Date Diagnosis [...] note writ ten by Lupillo Amezquita MA, Permit Review Assistant. Edited and approved by Dr. Beto Snyder MD. [employer] Other 10-14-2021 Evaluation note* Encounter Date Diagnosis [...] no improvement in 2 to 3 days. [employer] Other 10-08-2021 Evaluation note* Encounter Date Diagnosis [...] Patient care instructions given in writting by [facility] Care At Home document [employer] Other 10-07-2021 Evaluation note* Encounter Date Diagnosis [...] Aug, Other chronic pain (ICD-10 - G89.29) [employer] Other 09-22-2021 Evaluation note* Encounter Date Diagnosis [...] Jul, Other chronic pain (ICD-10 - G89.29) [employer] Other 03-01-2021 Note [id number]:[address] [place] [address] 01-04-2021 NoteCystoscopy with Botox injection ? Voiding [...] if you have a fever over 100 degrees.[facility] 11-11-2020 NoteChief Complaint Pt is here [...] Dawna Marmolejo MD [address] [place] [address]- [phone] Additional Instructions: F/u in 1yr. Patient Education [...] deficit disorder Bipolar disorder (more content not included)...[facility] Comment on above:Result Comment: Electronically Signed By: Dawna Marmolejo MD\.br\Date and Time Signed: 11/11/2111:16 EST\.br\Electronically Co-Signed By: Christy Gill MA\.br\Date and Time Co-Signed: 11/11/20 12:07 [id number]:127[facility] HospitalChief complaint Narrative - Reported* MARY LEAL is being seen for an initial evaluation of. * 52-year-old female seen in cardiology consultation at the request of her primary care physician forelevated troponin while in [facility] this past spring that was associated with [...] was simply at small type II non- MS troponin elevationrelated to inflammation and gastritis and [...] colectomy. She can follow-up as needed otherwise. [facility] 250 DO Work Phone: Evaluation note* Diagnosis Pelvic floor dysfunction- Primary Pelvic muscle wasting Lack of coordination Follow-up examination after colorectal surgery Follow-up examination, following other surgery [facility] Diagnosis Gastroesophageal reflux disease, unspecified whether esophagitis present [facility] Follow-up examination after colorectal surgery- Primary Follow-up examination, following other surgery [facility] Diagnosis Post-operative state- Primary Other postprocedural status Yeast infection of the skin Candidiasis of skin and nails [facility] Diagnosis Pelvic floor dysfunction- Primary Pelvic muscle wasting Lack of coordination Follow-up examination after colorectal surgery Follow-up examination, following other surgery [facility] Diagnosis Postoperative state- Primary Other postprocedural status Attention to ileostomy (HCC) Attention to ileostomy [facility] Preop examination- Primary Preoperative examination, unspecified Attention to ileostomy ([facility]) Attention to ileostomy Primary hypertension Unspecified essential hypertension Gastroparesis Gastroesophageal reflux disease, unspecified whether esophagitis present Mild persistent asthma without complication Unspecified asthma Bipolar 1 disorder (HCC) Bipolar I disorder, most recent episode (or current) unspecified Obesity (BMI 30.0-34.9) Obesity, unspecified Attention to ileostomy ([facility]) Attention to ileostomy documented in this encounter [facility] note* Diagnosis Gastroesophageal reflux disease, unspecified whether esophagitis present Chronic idiopathic constipation Unspecified constipation Attention to ileostomy (HCC) Attention to ileostomy documented in this encounter [facility] note* Diagnosis Follow-up examination after colorectal surgery- Primary Follow-up examination, following other surgery Pelvic floor dysfunction Pelvic muscle wasting documented in this encounter [facility] noteNo InformationNoivWatch Other evaluation noteNoivWatch Other evaluation note* Diagnosis Follow-up examination after colorectal surgery- Primary Follow-up examination, following other surgery Periumbilical abdominal pain Abdominal pain, periumbilic Outlet dysfunction constipation Colonic inertia Other functional disorders of intestine documented in this encounter [facility] noteNo assessment information [facility] Work Phone: [employer] note* Diagnosis Gas bloat syndrome- Primary Chronic idiopathic constipation Unspecified constipation Gastroparesis documented in this encounter [facility] note* Diagnosis Gastroesophageal reflux disease, unspecified whether esophagitis present documented in this encounter [facility] note* Diagnosis Gastroparesis- Primary documented in this encounter [facility] note* Diagnosis CHUCKIE (obstructive sleep apnea)- Primary Obstructive sleep apnea (adult) (pediatric) documented in this encounter [facility] note* Diagnosis Pre-op exam- Primary Preoperative examination, unspecified Primary hypertension Unspecified essential hypertension Mild persistent asthma without complication Unspecified asthma Gastroparesis CHUCKIE (obstructive sleep apnea) Obstructive sleep apnea (adult) (pediatric) documented in this encounter [facility] note* Diagnosis CHUCKIE (obstructive sleep apnea)- Primary Obstructive sleep apnea (adult) (pediatric) documented in this encounter [facility] note* Diagnosis Chronic idiopathic constipation- Primary Unspecified constipation Nausea Nausea alone documented in this encounter [facility] note* Diagnosis Gastroesophageal reflux disease with esophagitis without hemorrhage- Primary documented in this encounter [facility] note* Diagnosis Colonic inertia- Primary Other functional disorders of intestine Pelvic floor dysfunction Pelvic muscle wasting Nausea Nausea alone Gastroparesis documented in this encounter [facility] note* Diagnosis Pylorospasm- Primary Functional dyspepsia Dyspepsia and other specified disorders of function of stomach Gastroesophageal reflux disease with esophagitis without hemorrhage documented in this encounter [facility] note* Diagnosis Gastroesophageal reflux disease, unspecified whether esophagitis present documented in this encounter [facility] note* Diagnosis CHUCKIE (obstructive sleep apnea)- Primary Obstructive sleep apnea (adult) (pediatric) documented in this encounter [facility] note* Diagnosis Pylorospasm- Primary Functional dyspepsia Dyspepsia and other specified disorders of function of stomach Gastroesophageal reflux disease with esophagitis without hemorrhage documented in this encounter [facility] note* Diagnosis Gastroparesis- Primary documented in this encounter [facility] note* Diagnosis Preop examination- Primary Preoperative examination, unspecified Nausea Nausea alone CHUCKIE (obstructive sleep apnea) Obstructive sleep apnea (adult) (pediatric) Mild persistent asthma without complication Unspecified asthma Gastroesophageal reflux disease, unspecified whether esophagitis present Gastroparesis documented in this encounter [facility] note* Diagnosis 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 Personal history of other diseases of digestive system documented in this encounter [facility] note* Diagnosis Gastroesophageal reflux disease, unspecified whether esophagitis present documented in this encounter [facility] note* Diagnosis Incomplete bladder emptying- Primary Constipation, unspecified constipation type Urinary urgency Urgency of urination Urinary frequency Nocturia documented in this encounter [facility] note* Diagnosis Upper abdominal pain- Primary Abdominal pain, other specified site [facility] Diagnosis Burning with urination- Primary Dysuria documented in this encounter [facility] note* Diagnosis Bety vaginitis Candidiasis of vulva and vagina documented in this encounter [facility] note* Diagnosis Pre-op examination- Primary Preoperative examination, [...] urge Urge incontinence [facility] Diagnosis Educational circumstances- Primary Educational circumstance Urinary urgency Urgency of urination Urinary frequency OAB (overactive bladder) Hypertonicity of bladder Urinary incontinence, urge Urge incontinence [facility]* Diagnosis Post-operative state- Primary Other postprocedural status [facility] this [facility]* Diagnosis Procedure and treatment not carried out for other reasons- Primary [facility]* Diagnosis Post-operative state- Primary Other postprocedural status Vaginal burning Other specified symptom associated with female genital organs [facility]* Diagnosis Vaginal burning- Primary Other specified symptom associated with female genital organs [facility]* Diagnosis [place] grade D esophagitis Early satiety Unintentional weight loss Loss of weight Gastroparesis [facility] Gas bloat syndrome [facility] Diagnosis [...] (adult) (pediatric) documented [facility]* Diagnosis Pre-op evaluation- [...] Primary Preoperative examination, unspecified Attention to ileostomy ([facility]) Attention to ileostomy Primary hypertension Unspecified [...] apnea (adult) (pediatric) [facility] Diagnosis Chronic abdominal pain- Primary Abdominal pain, unspecified site Avoidant-restrictive food intake disorder (ARFID) Bloating Flatulence, eructation, and gas pain Gastroparesis [facility] Diagnosis Anxiety- Primary Anxiety state, unspecified documented in this encounter [facility]* Diagnosis Urinary frequency Urinary urgency Urgency of urination Burning with urination Dysuria Erythema Unspecified erythematous condition Chronic vulvitis Unspecified vaginitis and vulvovaginitis Night sweats Generalized hyperhidrosis [facility]* Diagnosis Granulation tissue Hymen abnormality documented in this encounter [facility]* Diagnosis Degenerative disc disease, cervical- [...] Gastroparesis Mild intermittent asthma, unspecified whether complicated ([facility]) [facility]* Diagnosis Oral candidiasis- Primary Candidiasis of mouth Tongue pain Glossodynia [facility]* Diagnosis Chronic diarrhea- Primary Diarrhea Chronic abdominal pain Abdominal pain, unspecified site Bloating Flatulence, eructation, and gas pain Inadequate oral intake Other symptoms concerning nutrition, metabolism, and development [place] grade D esophagitis Gastroparesis [facility] Diagnosis Aftercare following surgery Encounter for other specified aftercare Aftercare following surgery Encounter for other specified aftercare documented in this encounter [facility]* Diagnosis Aftercare following surgery Encounter for other specified aftercare documented in this encounter [facility]* Diagnosis Seborrheic keratosis Lentigines Capillary angioma Nevus, non-neoplastic documented in this encounter [facility]* Diagnosis Restless legs syndrome Restless legs syndrome (RLS) documented in this encounter [facility]* Diagnosis Other migraine without status migrainosus, not intractable documented in this encounter [facility]* Diagnosis CHUCKIE (obstructive sleep apnea)- Primary Obstructive sleep apnea (adult) (pediatric) Pre-op testing- Primary Unspecified pre-operative examination CHUCKIE (obstructive sleep apnea) Obstructive sleep apnea (adult) (pediatric) documented in this encounter [facility]* Diagnosis Other migraine without status migrainosus, not intractable- Primary documented in this encounter [facility]* Diagnosis CHUCKIE (obstructive sleep apnea)- Primary Obstructive sleep apnea (adult) (pediatric) documented in this encounter [facility]* Diagnosis Other migraine without status migrainosus, not intractable documented in this encounter [facility]* Diagnosis Onset Date Resolution Status Admit Date Lumbar radiculopathy acute April 30, 2025 3:53pm Polyneuropathy acute April 30, 2025 3:53pm [facility] Work Phone: Evaluation note* Diagnosis Gastroparesis- Primary Esophageal dysphagia Dysphagia, pharyngoesophageal phase Gastroesophageal reflux disease with esophagitis without hemorrhage Diarrhea, unspecified type Flatulence Flatulence, eructation, and gas pain documented in this encounter [facility]* Diagnosis Mild persistent asthma with acute exacerbation (HCC)- Primary documented in this encounter [facility]* Diagnosis Encounter for gynecological examination without abnormal finding Encounter for Papanicolaou smear of vagina Breast cancer screening by mammogram Hormone replacement therapy Chronic vulvitis Unspecified vaginitis and vulvovaginitis Night sweats Generalized hyperhidrosis Dyspareunia in female Erythema Unspecified erythematous condition [facility] [...] see above list Hospitalization History respiratory 02/2020 [facility] Other [facility] general Narrative - ReportedNoParko Other history general Narrative - Reported* Type [...] see above list Hospitalization History respiratory 02/2020 [facility] Other Hospital Discharge instructionsAmbulatory Orders* Referral to Rheumatology Location: None Selected [facility] Work Phone: InstructionsNot on filedocumented in this encounter [facility] filedocumented in [facility] filedocumented in this [facility] filedocumented in this encounter [facility] filedocumented in this encounter [facility] filedocumented in this encounter [facility] SystemReason for referral (narrative)* Outpatient Procedure (Routine) - Pending Review Specialty Diagnoses / Procedures Referred By Contac t Referred To Contact [facility] Diagnoses Gastroparesis Procedures CAPSULE ENDOSCOPY SMART Isra Masters DO [facility] [address] [place] [address] [place] [id number] Referral ID Status Reason Start Date Expiration Date Visits Requested Visits Authorized [id number] Pending Review Auto-Generat ed Referral 10/11/2022 10/11/2023 1 1 [facility] Outpatient Procedure (Routine) - Pending Review Specialty Diagnoses / Procedures Referred By Contac t Referred To Contact [facility] Diagnoses Chronic idiopathic constipation Procedures SIGMOIDOSCOPY SIGMOIDOSCOPY FLX DX W/COLLJ SPEC BR/WA IF PFRMD Isra Masters DO [facility] [address] [place] [id number] [address] [address] Referral ID Status Reason Start Date Expiration Date Visits Requested Visits Authorized [id number] Pending Review Auto-Generat ed Referral 11/30/2022 11/30/2023 1 1 [facility] ([facility]ative[facility] Outpatient Procedure (Routine) - Pending Review Specialty Diagnoses / Procedures Referred By Contac t Referred To Contact [facility] Diagnoses Gastroparesis Procedures EGD - THERAPEUTIC, EUS, OR TUBE INTERVENTIONS ESOPHAGOGASTRODUODENOSC OPY TRANSORAL DIAGNOSTIC STOMACH SURGERY PROCEDURE [place] [address] [place] [phone] Referral ID Status Reason Start Date Expiration Date Visits Requested Visits Authorized [id number] Pending Review Auto-Generat ed Referral 01/11/2023 01/12/2024 1 1 [facility] for referral (narrative)* Outpatient Procedure (Routine) - Pending Review Specialty Diagnoses / Procedures Referred By Contac t Referred To Contact [facility] Diagnoses Incomplete bladder emptying Urinary urgency Urinary frequency Nocturia Procedures URODYNAMICS WHI COMPLX CYSTOMETRO W/VOID PRESS&URETHRAL PROFILE Nelsy Chávez APRN.AIR TUCKER [address] [place] [address] Formerly Named [facility] [address] [place] [address] Referral ID Status Reason Start Date Expiration Date Visits Requested Visits Authorized [id number] Pending Review Auto-Generat ed Referral 07/31/2023 07/30/2024 1 1 [facility] for referral (narrative)* Consultation (Routine) - Open Specialty Diagnoses / Procedures Referred By Contac t Referred To Contact Family Medicine Diagnoses Upper abdominal pain Lev Ritter APRN [employer] [place] [address] [facility] [address] [place] [address] Referral ID Status Reason Start Date Expiration Date Visits Re quested Visits Authorized [id number] Open 08/12/2023 09/12/2024 1 1 [facility] for referral (narrative)* Consultation (Routine) - New Request Specialty Diagnoses / Procedures Referred By Contac t Referred To Contact Psychology Diagnoses Avoidant-restrictive food intake disorder (ARFID) Chronic abdominal pain Padmaja Llamas MD, PhD [address] [facility] [address] [place] [address] Referral ID Status Reason Start Date Expiration Date V isits Requested Visits Authorized [id number] New Request 08/09/2024 09/03/2025 1 1 * Adjunctive Therapy (Routine) - New Request Specialty Diagnoses / Procedures Referred By Contdestiny t Referred To Contact Nutrition and Dietetics Diagnoses Chronic abdominal pain Bloating Gastroparesis Padmaja Llamas MD, PhD [address] [place] [address] Referral ID Status Reason Start Date Expiration Date V isits Requested Visits Authorized [id number] New Request 08/09/2024 09/03/2025 1 1 * Radiology (Routine) - New Request Specialty Diagnoses / Procedures Referred By Gustavo salazar Referred To Contact Diagnoses Chronic abdominal pain Bloating Procedures HYDROGEN (H2) BREATH TEST Padmaja Llamas MD, PhD [address] [place] [address] Referral ID Status Reason Start Date Expiration Date V isits Requested Visits Authorized [id number] New Request 08/09/2024 09/03/2025 1 1 [facility]ative)No reason for referral [facility] Work Phone: Reason for visit NarrativeDISCUSS OTHER OPTIONS PRIOR TO PROCEDURECastell [email or web address] Other Reason for visit NarrativeRECHECK CERVICAL PAIN DISCUSS PROCEDUR[facility] [email or web address] Other Reason for visit Narrative* Outpatient Procedure (Routine) - Closed Specialty Diagnoses / Procedures Referred By Gustavo t Referred To Contact [facility] Diagnoses Gastroparesis Procedures GI TRANSIT & PRES RAVINDER WIRELESS CAPSULE W/INTERP Isra Masters DO [address] [place] [address] [facility] [place] [address] Referral ID Status Reason Start Date Expiration Date Visits Re quested Visits Authorized [id number] Closed 11/08/2022 11/05/2023 1 1 [facility] Summary Purpose Family History No Family History [...] FoundDocuments on File Type Date Recorded Patient Electronic Warfare Operator Expl anation Advance Directive(s) 10/13/2021 4:09 PM Advance Directive(s) 10/14/2020 8:14 AM Documents on File Type Date Recorded Patient Electronic Warfare Operator Expl anation Advance Directive(s) 10/13/2021 4:09 PM Advance Directive(s) 10/14/2020 8:14 AM Documents on File Type Date Recorded Patient Electronic Warfare Operator Expl anation Advance Directive(s) 03/21/2022 1:42 PM [...] unspecified whether esophagitis present Isra Masters DO [facility] [address] [place] [id number] Referral ID Status Reason Start Date Expiration Date Visits Re quested Visits Authorized [id number] Closed 1 1 Referral ID Status Reason Start Date Expiration Date V isits Requested Visits Authorized [id number] Pending Review 1 1 Specialty Diagnoses / Procedures Referred By Contac t Referred To Contact CT IMAGING Diagnoses Periumbilical abdominal pain Procedures CT ABD/PEL W IVCON CT ABD & PEL[place] [address] [place] [address] Ct Imaging Referral ID Status Reason Start Date Expiration Date Visits Requested Visits Authorized [id number] Pending Review Auto-Generat ed Referral 08/02/2022 08/25/2023 1 1 Reason BILATERAL SHOULDER P AIN Diagnosis 1 Shoulder pain (M25.5 19) Referral Organization [facility] Referring Provider First Name Beto Referring Provider Last Name Steven Referring Provider Specialty Pain Medici ne Referred Organization [facility] Referred Provider Beto Cartagena Referred Address [address] [facility] [place],[address] Referred Provider Specialty Orthopedic S urgery Referral Priority Routine Referral Appointment Date 2022-10-10 General Notes Kim Manley 10:01:46 AM >patient already scheduled with [facility] 10/10/22 at 1:30pm. Sending p2p at this time Referral ID Status Reason Start Date Expiration Date Visits Re quested Visits Authorized [id number] Closed 1 1 Specialty Diagnoses / Procedures Referred By Contac t Referred To Contact Diagnoses [place] grade D esophagitis Early satiety Unintentional weight loss Gastroparesis Procedures DIAGNOSTIC UPPER ENDOSCOPY CT ESOPHAGOGASTRODUODENOSCOPY TRANSORAL DIAGNOSTIC Padmaja Llamas MD, PhD [address] [place] [address] [address] [place] [address] Referral ID Status Reason Start Date Expiration Date V isits Requested Visits Authorized [id number] New Request 03/06/2024 03/31/2025 1 1 Specialty Diagnoses / Procedures Referred By Contac t Referred To Contact Diagnoses Other migraine without status migrainosus, not intractable Pauline Christensen MD [address] [facility] [place] [address] Referral ID Status Reason Start Date Expiration Date V isits Requested Visits Authorized [id number] Pending Review 05/15/2024 05/15/2025 1 1 Referral ID Status Reason Start Date Expiration Date V isits Requested Visits Authorized [id number] Pending Review 05/15/2024 05/15/2025 1 1 Chief Complaint and Reason for Visit Chief Complaint M25.519 M25.569 R52 Chief Complaint M25.519 M25.569 R52 bilateral shoulder pain Chief Complaint M76.821/right foor p ain Chief Complaint M76.821/right foor p ain chest tightness dizzy sob Chief Complaint r11.0 r10.11 Chief Complaint M76.71 Chief Complaint M76.71 Unknown Chief Complaint Admit Date cervical spondylosis, radiculopathy [facility] 2023 2:53pm Chief Complaint Admit Date cervical spondylosis, radiculopathy [facility] 2023 2:53pm M54.12 October 09, 2024 [...] Chief Complaint Admit Date cervical spondylosis, radiculopathy [facility] 2023 2:53pm M54.12 October 09, 2024 8 :55am m47.816 October 10, 2024 8 :42am M54.16 October 10, 2024 8 :44am EMG/MRI results October 14, 2024 8 :25am Granulation Tissue, Post Coital Bleeding , Hymenal October 24, 2024 5:57am R14.0 K31.84 November 14, 2024 6: 37am f/u after PM November 20, 2024 1 :13pm Chief Complaint Admit Date cervical spondylosis, radiculopathy [facility] 2023 2:53pm M54.12 October 09, 2024 [...] April 30, 2025 3:53 pm Chief Complaint Admit Date EMG BLE per Dr. Everett Valdez April 3:53pm M47.816 M54.16 July 01, 2025 7: 29am Chief Complaint * Patient is a 53-year-old female who returns at the request of her primary care physician with episodic chest discomfort associated weakness, dizziness, diaphoresis with recent work-up that [facility] emergency room. Reportedly her troponins are elevated [...] of which are currently being investigated at [facility] (now her fourth GI specialist). * Last year while in [place] she had similar issues with elevated troponins in the ED and underwent heart catheterization that did not reveal any specific significant disease, details of the discharge summary are reviewed * She underwent recent stress perfusion imaging at [facility], the report is reviewed, she hasno [...] disease, will investigate the troponin rise at [facility] however I believe this is likely a non- MS troponin elevation, likely associated withunderlying inflammatory bowel disease. We will follow-up on a as needed basis unless further objective data come to light * Patient is a 53-year-old female who returns at the request of her primary care physician with episodic chest discomfort associated weakness, dizziness, diaphoresis with recent work-up that [facility] emergency room. Reportedly her troponins are elevated [...] of which are currently being investigated at [facility] (now her fourth GI specialist). * Last year while in [place] she had similar issues with elevated troponins in the ED and underwent heart catheterization that did not reveal any specific significant disease, details of the discharge summary are reviewed * She underwent recent stress perfusion imaging at [facility], the report is reviewed, she hasno [...] disease, will investigate the troponin rise at [facility] however I believe this is likely a non- MS troponin elevation, likely associated withunderlying inflammatory bowel disease. We will follow-up on a as needed basis unless further objective data come to light Additional Source Comments INFORMATION SOURCE (unrecogn ized section and content) DATE CREATED AUTHOR 07/08/2021 [facility] DATE CREATED AUTHOR AUTHOR'S ORGANIZ ATION 11/18/2021 [facility] DATE CREATED AUTHOR AUTHOR'S ORGANIZ ATION 02/01/2022 [facility] DATE CREATED AUTHOR AUTHOR'S ORGANIZ ATION 04/05/2022 [facility] DATE CREATED AUTHOR AUTHOR'S ORGANIZ ATION 09/29/2022 [facility] DATE CREATED AUTHOR AUTHOR'S ORGANIZ ATION 12/09/2022 [facility] DATE CREATED AUTHOR AUTHOR'S ORGANIZ ATION 04/16/2023 [facility] DATE CREATED AUTHOR AUTHOR'S ORGANIZ ATION 06/14/2023 [facility] DATE CREATED AUTHOR AUTHOR'S ORGANIZ ATION 08/14/2023 [facility] DATE CREATED AUTHOR AUTHOR'S ORGANIZ ATION 09/02/2023 [facility] DATE CREATED AUTHOR AUTHOR'S ORGANIZ ATION 10/27/2023 [facility] DATE CREATED AUTHOR AUTHOR'S ORGANIZ ATION 01/26/2024 [facility] DATE CREATED AUTHOR AUTHOR'S ORGANIZ ATION 03/16/2024 [facility] DATE CREATED AUTHOR AUTHOR'S ORGANIZ ATION 12/28/2024 [facility] DATE CREATED AUTHOR AUTHOR'S ORGANIZ ATION 12/30/2024 [place] DATE CREATED AUTHOR AUTHOR'S ORGANIZ ATION 01/26/2025 [facility] DATE CREATED AUTHOR AUTHOR'S ORGANIZ ATION 05/17/2025 [facility] DATE CREATED AUTHOR AUTHOR'S ORGANIZ ATION 06/07/2025 [facility] DATE CREATED AUTHOR AUTHOR'S ORGANIZ ATION 06/25/2025 [facility] DATE CREATED AUTHOR AUTHOR'S ORGANIZ ATION 07/02/2025 [facility] DATE CREATED AUTHOR AUTHOR'S ORGANIZ ATION 07/04/2025 [facility] Source Comments (unrecognize d section and content) In the event this informatio n is protected by the Federal Confidentiality of Alcohol and Drug Abuse Patient Records regulations: The Federal rules restrict any use of the information to criminally investigate or prosecute any alcohol or drug abuse patient.[facility] the event this information is protected by the Federal Confidentiality of Alcohol and Drug Abuse Patient Records regulations: The Federal rules restrict any use of the information to criminally investigate or prosecute any alcohol or drug abuse patient.[facility] SystemIn the event this information is protected by the Federal Confidentiality of Alcohol and Drug Abuse Patient Records regulations: The Federal rules restrict any use of the information to criminally investigate or prosecute any alcohol or drug abuse patient.[facility] SystemIn the event this information is protected by the Federal Confidentiality of Alcohol and Drug Abuse Patient Records regulations: The Federal rules restrict any use of the information to criminally investigate or prosecute any alcohol or drug abuse patient.[facility] SystemIn the event this information is protected by the Federal Confidentiality of Alcohol and Drug Abuse Patient Records regulations: The Federal rules restrict any use of the information to criminally investigate or prosecute any alcohol or drug abuse patient.[facility] SystemIn the event this information is protected by the Federal Confidentiality of Alcohol and Drug Abuse Patient Records regulations: The Federal rules restrict any use of the information to criminally investigate or prosecute any alcohol or drug abuse patient.[facility] SystemIn the event this information is protected by the Federal Confidentiality of Alcohol and Drug Abuse Patient Records regulations: The Federal rules restrict any use of the information to criminally investigate or prosecute any alcohol or drug abuse patient.[facility] SystemIn the event this information is protected by the Federal Confidentiality of Alcohol and Drug Abuse Patient Records regulations: The Federal rules restrict any use of the information to criminally investigate or prosecute any alcohol or drug abuse patient.[facility] SystemIn the event this information is protected by the Federal Confidentiality of Alcohol and Drug Abuse Patient Records regulations: The Federal rules restrict any use of the information to criminally investigate or prosecute any alcohol or drug abuse patient.[facility] SystemIn the event this information is protected by the Federal Confidentiality of Alcohol and Drug Abuse Patient Records regulations: The Federal rules restrict any use of the information to criminally investigate or prosecute any alcohol or drug abuse patient.[facility] SystemIn the event this information is protected by the Federal Confidentiality of Alcohol and Drug Abuse Patient Records regulations: The Federal rules restrict any use of the information to criminally investigate or prosecute any alcohol or drug abuse patient.[facility] SystemIn the event this information is protected by the Federal Confidentiality of Alcohol and Drug Abuse Patient Records regulations: The Federal rules restrict any use of the information to criminally investigate or prosecute any alcohol or drug abuse patient.[facility] SystemIn the event this information is protected by the Federal Confidentiality of Alcohol and Drug Abuse Patient Records regulations: The Federal rules restrict any use of the information to criminally investigate or prosecute any alcohol or drug abuse patient.[facility] SystemIn the event this information is protected by the Federal Confidentiality of Alcohol and Drug Abuse Patient Records regulations: The Federal rules restrict any use of the information to criminally investigate or prosecute any alcohol or drug abuse patient.[facility] SystemIn the event this information is protected by the Federal Confidentiality of Alcohol and Drug Abuse Patient Records regulations: The Federal rules restrict any use of the information to criminally investigate or prosecute any alcohol or drug abuse patient.[facility] SystemIn the event this information is protected by the Federal Confidentiality of Alcohol and Drug Abuse Patient Records regulations: The Federal rules restrict any use of the information to criminally investigate or prosecute any alcohol or drug abuse patient.[facility] SystemIn the event this information is protected by the Federal Confidentiality of Alcohol and Drug Abuse Patient Records regulations: The Federal rules restrict any use of the information to criminally investigate or prosecute any alcohol or drug abuse patient.[facility] SystemIn the event this information is protected by the Federal Confidentiality of Alcohol and Drug Abuse Patient Records regulations: The Federal rules restrict any use of the information to criminally investigate or prosecute any alcohol or drug abuse patient.[facility] SystemIn the event this information is protected by the Federal Confidentiality of Alcohol and Drug Abuse Patient Records regulations: The Federal rules restrict any use of the information to criminally investigate or prosecute any alcohol or drug abuse patient.[facility] SystemIn the event this information is protected by the Federal Confidentiality of Alcohol and Drug Abuse Patient Records regulations: The Federal rules restrict any use of the information to criminally investigate or prosecute any alcohol or drug abuse patient.[facility] SystemIn the event this information is protected by the Federal Confidentiality of Alcohol and Drug Abuse Patient Records regulations: The Federal rules restrict any use of the information to criminally investigate or prosecute any alcohol or drug abuse patient.[facility] SystemIn the event this information is protected by the Federal Confidentiality of Alcohol and Drug Abuse Patient Records regulations: The Federal rules restrict any use of the information to criminally investigate or prosecute any alcohol or drug abuse patient.[facility] SystemIn the event this information is protected by the Federal Confidentiality of Alcohol and Drug Abuse Patient Records regulations: The Federal rules restrict any use of the information to criminally investigate or prosecute any alcohol or drug abuse patient.[facility] SystemIn the event this information is protected by the Federal Confidentiality of Alcohol and Drug Abuse Patient Records regulations: The Federal rules restrict any use of the information to criminally investigate or prosecute any alcohol or drug abuse patient.[facility] SystemIn the event this information is protected by the Federal Confidentiality of Alcohol and Drug Abuse Patient Records regulations: The Federal rules restrict any use of the information to criminally investigate or prosecute any alcohol or drug abuse patient.[facility] SystemIn the event this information is protected by the Federal Confidentiality of Alcohol and Drug Abuse Patient Records regulations: The Federal rules restrict any use of the information to criminally investigate or prosecute any alcohol or drug abuse patient.[facility] SystemIn the event this information is protected by the Federal Confidentiality of Alcohol and Drug Abuse Patient Records regulations: The Federal rules restrict any use of the information to criminally investigate or prosecute any alcohol or drug abuse patient.[facility] SystemIn the event this information is protected by the Federal Confidentiality of Alcohol and Drug Abuse Patient Records regulations: The Federal rules restrict any use of the information to criminally investigate or prosecute any alcohol or drug abuse patient.[facility] SystemIn the event this information is protected by the Federal Confidentiality of Alcohol and Drug Abuse Patient Records regulations: The Federal rules restrict any use of the information to criminally investigate or prosecute any alcohol or drug abuse patient.[facility] SystemIn the event this information is protected by the Federal Confidentiality of Alcohol and Drug Abuse Patient Records regulations: The Federal rules restrict any use of the information to criminally investigate or prosecute any alcohol or drug abuse patient.[facility] SystemIn the event this information is protected by the Federal Confidentiality of Alcohol and Drug Abuse Patient Records regulations: The Federal rules restrict any use of the information to criminally investigate or prosecute any alcohol or drug abuse patient.[facility] SystemIn the event this information is protected by the Federal Confidentiality of Alcohol and Drug Abuse Patient Records regulations: The Federal rules restrict any use of the information to criminally investigate or prosecute any alcohol or drug abuse patient.[facility] SystemIn the event this information is protected by the Federal Confidentiality of Alcohol and Drug Abuse Patient Records regulations: The Federal rules restrict any use of the information to criminally investigate or prosecute any alcohol or drug abuse patient.[facility] SystemIn the event this information is protected by the Federal Confidentiality of Alcohol and Drug Abuse Patient Records regulations: The Federal rules restrict any use of the information to criminally investigate or prosecute any alcohol or drug abuse patient.[facility] SystemIn the event this information is protected by the Federal Confidentiality of Alcohol and Drug Abuse Patient Records regulations: The Federal rules restrict any use of the information to criminally investigate or prosecute any alcohol or drug abuse patient.[facility] SystemIn the event this information is protected by the Federal Confidentiality of Alcohol and Drug Abuse Patient Records regulations: The Federal rules restrict any use of the information to criminally investigate or prosecute any alcohol or drug abuse patient.[facility] SystemIn the event this information is protected by the Federal Confidentiality of Alcohol and Drug Abuse Patient Records regulations: The Federal rules restrict any use of the information to criminally investigate or prosecute any alcohol or drug abuse patient.[facility] SystemIn the event this information is protected by the Federal Confidentiality of Alcohol and Drug Abuse Patient Records regulations: The Federal rules restrict any use of the information to criminally investigate or prosecute any alcohol or drug abuse patient.[facility] SystemIn the event this information is protected by the Federal Confidentiality of Alcohol and Drug Abuse Patient Records regulations: The Federal rules restrict any use of the information to criminally investigate or prosecute any alcohol or drug abuse patient.[facility] SystemIn the event this information is protected by the Federal Confidentiality of Alcohol and Drug Abuse Patient Records regulations: The Federal rules restrict any use of the information to criminally investigate or prosecute any alcohol or drug abuse patient.[facility] SystemIn the event this information is protected by the Federal Confidentiality of Alcohol and Drug Abuse Patient Records regulations: The Federal rules restrict any use of the information to criminally investigate or prosecute any alcohol or drug abuse patient.[facility] SystemIn the event this information is protected by the Federal Confidentiality of Alcohol and Drug Abuse Patient Records regulations: The Federal rules restrict any use of the information to criminally investigate or prosecute any alcohol or drug abuse patient.[facility] SystemIn the event this information is protected by the Federal Confidentiality of Alcohol and Drug Abuse Patient Records regulations: The Federal rules restrict any use of the information to criminally investigate or prosecute any alcohol or drug abuse patient.[facility] SystemIn the event this information is protected by the Federal Confidentiality of Alcohol and Drug Abuse Patient Records regulations: The Federal rules restrict any use of the information to criminally investigate or prosecute any alcohol or drug abuse patient.[facility] SystemIn the event this information is protected by the Federal Confidentiality of Alcohol and Drug Abuse Patient Records regulations: The Federal rules restrict any use of the information to criminally investigate or prosecute any alcohol or drug abuse patient.[facility] SystemIn the event this information is protected by the Federal Confidentiality of Alcohol and Drug Abuse Patient Records regulations: The Federal rules restrict any use of the information to criminally investigate or prosecute any alcohol or drug abuse patient.[facility] SystemIn the event this information is protected by the Federal Confidentiality of Alcohol and Drug Abuse Patient Records regulations: The Federal rules restrict any use of the information to criminally investigate or prosecute any alcohol or drug abuse patient.[facility] SystemIn the event this information is protected by the Federal Confidentiality of Alcohol and Drug Abuse Patient Records regulations: The Federal rules restrict any use of the information to criminally investigate or prosecute any alcohol or drug abuse patient.[facility] SystemIn the event this information is protected by the Federal Confidentiality of Alcohol and Drug Abuse Patient Records regulations: The Federal rules restrict any use of the information to criminally investigate or prosecute any alcohol or drug abuse patient.[facility] SystemIn the event this information is protected by the Federal Confidentiality of Alcohol and Drug Abuse Patient Records regulations: The Federal rules restrict any use of the information to criminally investigate or prosecute any alcohol or drug abuse patient.[facility] SystemIn the event this information is protected by the Federal Confidentiality of Alcohol and Drug Abuse Patient Records regulations: The Federal rules restrict any use of the information to criminally investigate or prosecute any alcohol or drug abuse patient.[facility] SystemIn the event this information is protected by the Federal Confidentiality of Alcohol and Drug Abuse Patient Records regulations: The Federal rules restrict any use of the information to criminally investigate or prosecute any alcohol or drug abuse patient.[facility] SystemIn the event this information is protected by the Federal Confidentiality of Alcohol and Drug Abuse Patient Records regulations: The Federal rules restrict any use of the information to criminally investigate or prosecute any alcohol or drug abuse patient.[facility] SystemIn the event this information is protected by the Federal Confidentiality of Alcohol and Drug Abuse Patient Records regulations: The Federal rules restrict any use of the information to criminally investigate or prosecute any alcohol or drug abuse patient.[facility] SystemIn the event this information is protected by the Federal Confidentiality of Alcohol and Drug Abuse Patient Records regulations: The Federal rules restrict any use of the information to criminally investigate or prosecute any alcohol or drug abuse patient.[facility] SystemIn the event this information is protected by the Federal Confidentiality of Alcohol and Drug Abuse Patient Records regulations: The Federal rules restrict any use of the information to criminally investigate or prosecute any alcohol or drug abuse patient.[facility] SystemIn the event this information is protected by the Federal Confidentiality of Alcohol and Drug Abuse Patient Records regulations: The Federal rules restrict any use of the information to criminally investigate or prosecute any alcohol or drug abuse patient.[facility] SystemIn the event this information is protected by the Federal Confidentiality of Alcohol and Drug Abuse Patient Records regulations: The Federal rules restrict any use of the information to criminally investigate or prosecute any alcohol or drug abuse patient.[facility] SystemIn the event this information is protected by the Federal Confidentiality of Alcohol and Drug Abuse Patient Records regulations: The Federal rules restrict any use of the information to criminally investigate or prosecute any alcohol or drug abuse patient.[facility] SystemIn the event this information is protected by the Federal Confidentiality of Alcohol and Drug Abuse Patient Records regulations: The Federal rules restrict any use of the information to criminally investigate or prosecute any alcohol or drug abuse patient.[facility] SystemIn the event this information is protected by the Federal Confidentiality of Alcohol and Drug Abuse Patient Records regulations: The Federal rules restrict any use of the information to criminally investigate or prosecute any alcohol or drug abuse patient.[facility] SystemIn the event this information is protected by the Federal Confidentiality of Alcohol and Drug Abuse Patient Records regulations: The Federal rules restrict any use of the information to criminally investigate or prosecute any alcohol or drug abuse patient.[facility] SystemIn the event this information is protected by the Federal Confidentiality of Alcohol and Drug Abuse Patient Records regulations: The Federal rules restrict any use of the information to criminally investigate or prosecute any alcohol or drug abuse patient.[facility] SystemIn the event this information is protected by the Federal Confidentiality of Alcohol and Drug Abuse Patient Records regulations: The Federal rules restrict any use of the information to criminally investigate or prosecute any alcohol or drug abuse patient.[facility] SystemIn the event this information is protected by the Federal Confidentiality of Alcohol and Drug Abuse Patient Records regulations: The Federal rules restrict any use of the information to criminally investigate or prosecute any alcohol or drug abuse patient.[facility] SystemIn the event this information is protected by the Federal Confidentiality of Alcohol and Drug Abuse Patient Records regulations: The Federal rules restrict any use of the information to criminally investigate or prosecute any alcohol or drug abuse patient.[facility] SystemIn the event this information is protected by the Federal Confidentiality of Alcohol and Drug Abuse Patient Records regulations: The Federal rules restrict any use of the information to criminally investigate or prosecute any alcohol or drug abuse patient.[facility] SystemIn the event this information is protected by the Federal Confidentiality of Alcohol and Drug Abuse Patient Records regulations: The Federal rules restrict any use of the information to criminally investigate or prosecute any alcohol or drug abuse patient.[facility] SystemIn the event this information is protected by the Federal Confidentiality of Alcohol and Drug Abuse Patient Records regulations: The Federal rules restrict any use of the information to criminally investigate or prosecute any alcohol or drug abuse patient.[facility] SystemIn the event this information is protected by the Federal Confidentiality of Alcohol and Drug Abuse Patient Records regulations: The Federal rules restrict any use of the information to criminally investigate or prosecute any alcohol or drug abuse patient.[facility] SystemIn the event this information is protected by the Federal Confidentiality of Alcohol and Drug Abuse Patient Records regulations: The Federal rules restrict any use of the information to criminally investigate or prosecute any alcohol or drug abuse patient.[facility] SystemIn the event this information is protected by the Federal Confidentiality of Alcohol and Drug Abuse Patient Records regulations: The Federal rules restrict any use of the information to criminally investigate or prosecute any alcohol or drug abuse patient.[facility] SystemIn the event this information is protected by the Federal Confidentiality of Alcohol and Drug Abuse Patient Records regulations: The Federal rules restrict any use of the information to criminally investigate or prosecute any alcohol or drug abuse patient.[facility] SystemIn the event this information is protected by the Federal Confidentiality of Alcohol and Drug Abuse Patient Records regulations: The Federal rules restrict any use of the information to criminally investigate or prosecute any alcohol or drug abuse patient.[facility] SystemIn the event this information is protected by the Federal Confidentiality of Alcohol and Drug Abuse Patient Records regulations: The Federal rules restrict any use of the information to criminally investigate or prosecute any alcohol or drug abuse patient.[facility] SystemIn the event this information is protected by the Federal Confidentiality of Alcohol and Drug Abuse Patient Records regulations: The Federal rules restrict any use of the information to criminally investigate or prosecute any alcohol or drug abuse patient.[facility] SystemIn the event this information is protected by the Federal Confidentiality of Alcohol and Drug Abuse Patient Records regulations: The Federal rules restrict any use of the information to criminally investigate or prosecute any alcohol or drug abuse patient.[facility] SystemIn the event this information is protected by the Federal Confidentiality of Alcohol and Drug Abuse Patient Records regulations: The Federal rules restrict any use of the information to criminally investigate or prosecute any alcohol or drug abuse patient.[facility] SystemIn the event this information is protected by the Federal Confidentiality of Alcohol and Drug Abuse Patient Records regulations: The Federal rules restrict any use of the information to criminally investigate or prosecute any alcohol or drug abuse patient.[facility] SystemIn the event this information is protected by the Federal Confidentiality of Alcohol and Drug Abuse Patient Records regulations: The Federal rules restrict any use of the information to criminally investigate or prosecute any alcohol or drug abuse patient.[facility] SystemIn the event this information is protected by the Federal Confidentiality of Alcohol and Drug Abuse Patient Records regulations: The Federal rules restrict any use of the information to criminally investigate or prosecute any alcohol or drug abuse patient.[facility] SystemIn the event this information is protected by the Federal Confidentiality of Alcohol and Drug Abuse Patient Records regulations: The Federal rules restrict any use of the information to criminally investigate or prosecute any alcohol or drug abuse patient.[facility] SystemIn the event this information is protected by the Federal Confidentiality of Alcohol and Drug Abuse Patient Records regulations: The Federal rules restrict any use of the information to criminally investigate or prosecute any alcohol or drug abuse patient.[facility] SystemIn the event this information is protected by the Federal Confidentiality of Alcohol and Drug Abuse Patient Records regulations: The Federal rules restrict any use of the information to criminally investigate or prosecute any alcohol or drug abuse patient.[facility] SystemIn the event this information is protected by the Federal Confidentiality of Alcohol and Drug Abuse Patient Records regulations: The Federal rules restrict any use of the information to criminally investigate or prosecute any alcohol or drug abuse patient.[facility] SystemIn the event this information is protected by the Federal Confidentiality of Alcohol and Drug Abuse Patient Records regulations: The Federal rules restrict any use of the information to criminally investigate or prosecute any alcohol or drug abuse patient.[facility] SystemIn the event this information is protected by the Federal Confidentiality of Alcohol and Drug Abuse Patient Records regulations: The Federal rules restrict any use of the information to criminally investigate or prosecute any alcohol or drug abuse patient.[facility] SystemIn the event this information is protected by the Federal Confidentiality of Alcohol and Drug Abuse Patient Records regulations: The Federal rules restrict any use of the information to criminally investigate or prosecute any alcohol or drug abuse patient.[facility] Reason for Visit (unrecogniz ed section and content) Reason Comments Physical Therapy Specialty Diagnoses / Procedures Referred By Contac t Referred To Contact [facility] Diagnoses Follow-up examination after colorectal surgery Procedures CONSULT TO PHYSICAL THERAPY PHYSICAL THERAPY EVALUATION HIGH COMPLEX [address] [place] [address] [place] [address] [facility] [place] [address] [place] [address] Referral ID Status Reason Start Date Expiration Date Visits Requested Visits Authorized [id number] Authorized Auto-Generat ed Referral 01/04/2022 11/05/2022 30 30 Reason Comments Refill Request dexlansoprazole Reason Comments Established Patient Follow-Up Reason Comments Post Op Reason Comments Established Patient Reason Comments Appointment for script refill Reason Comments Gastroparesis 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 Medication 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 [...] ESOPHAGUS DOUBLE CONTRAST [place] [address] Xr Imaging Referral ID Status Reason Start Date Expiration Date V isits Requested Visits Authorized [id number] Closed Auto-Generate d Referral 11/17/2022 12/17/2023 1 [...] ABD & [place] W/[place] [address] [place] [address] [address] Imaging Referral ID Status Reason Start Date Expiration Date V isits Requested Visits Authorized [id number] Closed Auto-Generate d Referral 07/28/2022 11/05/2022 2 [...] By Contac t Referred To Contact Diagnoses [place] grade D esophagitis Early satiety Unintentional weight loss Gastroparesis Procedures DIAGNOSTIC UPPER ENDOSCOPY CT ESOPHAGOGASTRODUODENOSCOPY TRANSORAL DIAGNOSTIC Padmaja Llamas MD, PhD [address] [place] [address] Referral ID Status Reason Start Date Expiration Date V isits Requested Visits Authorized [id number] New Request 03/06/2024 03/31/2025 1 1 Specialty Diagnoses / Procedures Referred By Contac t Referred To Contact Orthopedics / ORTHOPAEDIC SURGERY Diagnoses shoulder pain right pt will hand carry MRI Procedures POLI ACUTE Self Ryan Lynne MD [address] [place] [address] Referral ID Status Reason Start Date Expiration Date V isits Requested Visits Authorized [id number] Closed Financial Clearance Not Required 09/06/2020 10/05/2020 [...] Visit 10/24/24 vaginal cuf f and hymen [email or web address] daysDenies PO concerns. Bleeding stopped after 7 days. Reason Comments Skin Check Reason Comments Med Refill Reason Onset Date Comments Med Refill 12/10/2024 Reason Onset Date Comments Medication/Pharmacy Switch 05/14/2024 Reason Comments Post-op Inspire Implant Reason Onset Date Comments Results 06/04/2025 Reason Comments <9>Gastroparesis Gas Reason Comments Asthma Reason Comments Gynecologic Exam LMP: SHARON FRIEDMAN [...] November 20, 2024 End: November 20, 2024 Anibalmarco Medrano , DO Attending Provider [...] Care Provider Active Start: October 09, 2024 Anibalmarco Medrano , DO Other Provider Active Start [...] 10, 2024 End: October 10, 2024 Anibal Edd Beaulieui , DO Attending Provider Active S tart: October 10, 2024 End: October 10, 2024 Team Status: Inactive Member Role Status Dates Shannon Gómez DO Primary Care Provider Active Start: October 14, 2024 End: October 14, 2024 Anibal Edd Medrano , DO Attending Provider Active S [...] Active Niecy Duron PA-C Attending Provider Active Unit Support Representative Relationship Specialty Start Date End Date Eliceo Gómez Jr. [address] [place] [address] [phone] PCP - General Family Practice 10/14/20 Unit Support Representative Relationship Specialty Start Date End Date Eliceo Gómez Jr. [address] [place] [address] PCP - General Family Practice 10/14/20 Unit Support Representative Relationship Specialty Start Date End Date Dalia Eliceo Lugo JrReno [address] [place] [address] PCP - General Family Practice 10/14/20 Unit Support Representative Relationship Specialty Start Date End Date Eliceo Gómez JrReno [address] [place] [address] PCP - General Family Practice 10/14/20 Unit Support Representative Relationship Specialty Start Date End Date Eliceo Gómez JrReno [address] [place] [address] PCP - General Family Practice 10/14/20 Unit Support Representative Relationship Specialty Start Date End Date Dalia Eliceo Lugo JrReno [address] [place] [address] PCP - General Family Practice 10/14/20 Gwendolyn Stroud [address] [place] [address] Family Practice 03/14/22 Unit Support Representative Relationship Specialty Start Date End Date Eliceo Gómez JrReno [address] [place] [address] PCP - General Family Practice 10/14/20 Gwendolyn Stroud [address] [place] [address] Family Practice 03/14/22 Unit Support Representative Relationship Specialty Start Date End Date Eliceo Gómez JrReno [address] [place] [address] PCP - General Family Practice 10/14/20 Gwendolyn Stroud [address] [place] [address] Family Practice 03/14/22 Unit Support Representative Relationship Specialty Start Date End Date Eliceo Gómez JrReno [address] [place] [address] PCP - General Family Practice 10/14/20 Gwendolyn Stroud [address] [place] [address] Family Practice 03/14/22 Unit Support Representative Relationship Specialty Start Date End Date Eliceo Gómez JrReno [address] [place] [address] PCP - General Family Practice 10/14/20 Gwendolyn Stroud [address] [place] [address] Family Practice 03/14/22 Unit Support Representative Relationship Specialty Start Date End Date Eliceo Gómez [address] [place] [address] PCP - General Family Practice 10/14/20 Gwendolyn Stroud [address] [place] [address] Family Practice 03/14/22 Unit Support Representative Relationship Specialty Start Date End Date Eliceo Gómez Jr. [address] [place] [address] PCP - General Family Practice 10/14/20 Gwendolyn Stroud [employer] Family Practice 03/14/22 Unit Support Representative Relationship Specialty Start Date End Date Eliceo Gómez Jr. [address] [place] [address] PCP - General Family Practice 10/14/20 Gwendolyn Stroud, [employer] Family Practice 03/14/22 Unit Support Representative Relationship Specialty Start Date End Date Eliceo Gómez Jr. [address] [place] [address] PCP - General Family Practice 10/14/20 Gwendoyln Stroud [employer] Family Practice 03/14/22 Unit Support Representative Relationship Specialty Start Date End Date Eliceo Gómez Jr. [address] [place] [address] PCP - General Family Practice 10/14/20 Gwendolyn Stroud [employer] Family Practice 03/14/22 Unit Support Representative Relationship Specialty Start Date End Date Eliceo Gómez Jr. [address] [place] [address] PCP - General Family Medicine 10/14/20 Gwendolyn Stroud, [employer] T[employer] Family Medicine 03/14/22 Unit Support Representative Relationship Specialty Start Date End Date Eliceo Gómez Jr. [address] [place] [address] PCP - General Family Medicine 10/14/20 Gwendolyn Stroud CNP Family Medicine 03/14/22 Unit Support Representative Relationship Specialty Start Date End Date Eliceo Gómez Jr. [address] [place] [address] PCP - General Family Medicine 10/14/20 Gwendolyn Stroud CNP Family Medicine 03/14/22 Unit Support Representative Relationship Specialty Start Date End Date Eliceo Gómez Jr. [address] [place] [address] PCP - General Family Medicine 10/14/20 Gwendolyn Stroud [employer] Family Medicine 03/14/22 Team Status: Inactive Member Role Status Henrietta Szymanskibijutomasa , DO Primary Care Provider Active Beto Snyder MD Attending Provider Active Unit Support Representative Relationship Specialty Start Date End Date Eliceo Gómez Jr. [address] [place] [address] PCP - General Family Medicine 10/14/20 Gwendolyn Stroud, AIR T[employer]ER [address] [place] [address] Family Medicine 03/14/22 Unit Support Representative Relationship Specialty Start Date End Date Eliceo Gómez Jr. [address] [place] [address] PCP - General Family Medicine 10/14/20 Gwendolyn Stroud CNP [address] [place] [address] Family Medicine 03/14/22 Unit Support Representative Relationship Specialty Start Date End Date Eliceo Gómez Jr. [address] [place] [address] PCP - General Family Medicine 10/14/20 Gwendolyn Stroud CNP [address] [place] [address] Family Medicine 03/14/22 Unit Support Representative Relationship Specialty Start Date End Date Eliceo Gómez Jr. [address] [place] [address] PCP - General Family Medicine 10/14/20 Gwendolyn Stroud CNP [address] [place] [address] Family Medicine 03/14/22 Unit Support Representative Relationship Specialty Start Date End Date Eliceo Gómez Jr. [address] [place] [address] PCP - General Family Medicine 10/14/20 Gwendolyn Stroud CNP [address] [place] [address] Family Medicine 03/14/22 Unit Support Representative Relationship Specialty Start Date End Date Eliceo Gómez Jr. [address] [place] [address] PCP - General Family Medicine 10/14/20 Gwendolyn Stroud CNP [address] [place] [address] Family Medicine 03/14/22 Unit Support Representative Relationship Specialty Start Date End Date Eliceo Gómez Jr. [address] [place] [address] PCP - General Family Medicine 10/14/20 Gwendolyn Stroud CNP [address] [place] [address] Family Medicine 03/14/22 Unit Support Representative Relationship Specialty Start Date End Date Eliceo Gómez Jr. [address] [place] [address] PCP - General Family Medicine 10/14/20 Gwendolyn Stroud CNP [address] [place] [address] Family Medicine 03/14/22 Unit Support Representative Relationship Specialty Start Date End Date Eliceo Gómez Jr. [address] [place] [address] PCP - General Family Medicine 10/14/20 Gwendolyn Stroud CNP [address] [place] [address] Family Medicine 03/14/22 Unit Support Representative Relationship Specialty Start Date End Date Eliceo Gómez Jr. [address] [place] [address] PCP - General Family Medicine 10/14/20 Gwendolyn Stroud CNP [address] [place] [address] Family Medicine 03/14/22 Unit Support Representative Relationship Specialty Start Date End Date Eliceo Gómez Jr. [address] [place] [address] PCP - General Family Medicine 10/14/20 Gwendolyn Stroud CNP [address] [place] [address] Family Medicine 03/14/22 Team Status: Inactive Member Role Status Dates Shannon Gómez DO Primary Care Provider Active Beto Cartagena MD Attending Provider Active Unit Support Representative Relationship Specialty Start Date End Date Eliceo Gómez Jr. [address] [place] [address] PCP - General Family Medicine 10/14/20 Gwendolyn Stroud CNP [address] [place] [address] Family Medicine 03/14/22 Unit Support Representative Relationship Specialty Start Date End Date Eliceo Gómez Jr. [address] [place] [address] PCP - General Family Medicine 10/14/20 Gwendolyn Stroud CNP [address] [place] [address] Family Medicine 03/14/22 Unit Support Representative Relationship Specialty Start Date End Date Eliceo Gómez Jr. [address] [place] [address] PCP - General Family Medicine 10/14/20 Gwendolyn Stroud CNP [address] [place] [address] Family Medicine 03/14/22 Unit Support Representative Relationship Specialty Start Date End Date Eliceo Gómez Jr. [address] [place] [address] PCP - General Family Medicine 10/14/20 Gwendolyn Stroud CNP [address] [place] [address] Family Medicine 03/14/22 Unit Support Representative Relationship Specialty Start Date End Date Eliceo Gómez Jr. [address] [place] [address] PCP - General Family Medicine 10/14/20 Gwendolyn Stroud CNP [address] [place] [address] Family Medicine 03/14/22 Unit Support Representative Relationship Specialty Start Date End Date Eliceo Gómez Jr. [address] [place] [address] PCP - General Family Medicine 10/14/20 Gwendolyn Stroud CNP [address] [place] [address] Family Medicine 03/14/22 Unit Support Representative Relationship Specialty Start Date End Date Eliceo Gómez Jr. [address] [place] [address] PCP - General Family Medicine 10/14/20 Gwendolyn Stroud CNP [address] [place] [address] Family Medicine 03/14/22 Unit Support Representative Relationship Specialty Start Date End Date Eliceo Gómez Jr. [address] [place] [address] PCP - General Family Medicine 10/14/20 Gwendolyn Stroud CNP [address] [place] [address] Family [facility] 03/14/22 Team Status: Inactive Member Role Status Henrietta Gómez , DO Primary Care Provider Active Anibal Valle , DO Emergency Provider Active Unit Support Representative Relationship Specialty Start Date End Date Eliceo Gómez Jr. [address] [place] [address] PCP - General Family Medicine 10/14/20 Gwendolyn Stroud CNP [address] [place] [address] Family [facility] 03/14/22 Unit Support Representative Relationship Specialty Start Date End Date Eliceo Gómez Jr. [address] [place] [address] PCP - General Family Medicine 10/14/20 Gwendolyn Srtoud, KWESI [address] [place] [address] Family [facility] 03/14/22 Unit Support Representative Relationship Specialty Start Date End Date Eliceo Gómez Jr. [address] [place] [address] PCP - General Family Medicine 10/14/20 Gwendolyn Stroud, KWESI [address] [place] [address] Family Medicine 03/14/22 Unit Support Representative Relationship Specialty Start Date End Date Eliceo Gómez Jr., DO [address] [place] [address] PCP - General Family Medicine 10/14/20 Gwendolyn Stroud CNP [address] [place] [address] Family Medicine 03/14/22 Unit Support Representative Relationship Specialty Start Date End Date Eliceo Gómez Jr., DO [address] [place] [address] PCP - General Family Medicine 10/14/20 Gwendolyn Stroud, [employer] T[employer] [address] [place] [address] [facility] 03/14/22 Team Status: Inactive Member Role Status Henrietta Gómez DO Primary Care Provider Active Start: November 23, 2023 End: November 23, 2023 Tez Vazquez DO Attending Provider Active Start : November 23, 2023 End: November 23, 2023 Unit Support Representative Relationship Specialty Start Date End Date Eliceo Gómez Jr., DO [address] [place] [address] PCP - General Family Medicine 10/14/20 Gwendolyn Stroud, KWESI [address] [place] [address] Family Medicine 03/14/22 Unit Support Representative Relationship Specialty Start Date End Date Eliceo Gómez Jr., DO [address] [place] [address] PCP - General Family Medicine 10/14/20 Gwendolyn Stroud, KWESI [address] [place] [address] Family Medicine 03/14/22 Unit Support Representative Relationship Specialty Start Date End Date Eliceo Gómez , DO [address] [place] [address] PCP - General Family Medicine 10/14/20 Gwendolyn Stroud CNP [address] [place] [address] Family Medicine 03/14/22 Unit Support Representative Relationship Specialty Start Date End Date Eliceo Gómez , DO [address] [place] [address] PCP - General Family Medicine 10/14/20 Gwendolyn Stroud CNP [address] [place] [address] Family Medicine 03/14/22 Unit Support Representative Relationship Specialty Start Date End Date Eliceo Gómez ., DO [address] [place] [address] PCP - General Family Medicine 10/14/20 Gwendolyn Stroud, [employer] T[employer] [address] [place] [address] Family Medicine 03/14/22 Unit Support Representative Relationship Specialty Start Date End Date Eliceo Gómez ., DO [address] [place] [address] PCP - General Family Medicine 10/14/20 Gwendolyn Stroud, [employer] T[employer] [address] [place] [address] Family Medicine 03/14/22 Unit Support Representative Relationship Specialty Start Date End Date Eliceo Gómez Jr., DO [address] [place] [address] PCP - General Family Medicine 10/14/20 Gwendolyn Stroud, AIR T[employer]ER [address] [place] [address] Family Medicine 03/14/22 Unit Support Representative Relationship Specialty Start Date End Date Shannon Gómez, [address] [place] [address] PCP - General Family Medicine 11/14/23 Team [...] May 27, 2024 End: May 27, 2024 Unit Support Representative Relationship Specialty Start Date End Date Eliceo Gómez Jr., DO [address] [place] [address] PCP - General Family Medicine 10/14/20 Gwendolyn Stroud, AIR T[employer] [address] [place] [address] Family Medicine 03/14/22 Unit Support Representative Relationship Specialty Start Date End Date Eliceo Gómez Jr., DO [address] [place] [address] PCP - General Family Medicine 10/14/20 Unit Support Representative Relationship Specialty Start Date End Date Shannon Gómez, [address] [place] [address] PCP - General [facility] Medicine 11/14/23 Unit Support Representative Relationship Specialty Start Date End Date Eliceo Gómez DO [address] [place] [address] PCP - General [facility] Medicine 04/04/23 Eliceo Gómez, [address] [place] [address] PCP - [facility] 05/06/23 Dipti Acevedo, DO [address] [place] [address] Referring Physician Obstetrics and Gynecology 05/20/24 Unit Support Representative Relationship Specialty Start Date End Date Eliceo Gómez DO [address] [place] [address] PCP - [facility] 04/04/23 Eliceo Gómez, [address] [place] [address] PCP - [facility] 05/06/23 Dipti Acevedo, DO [address] [place] [address] Referring Physician Obstetrics and Gynecology 05/20/24 Team Status: Inactive Member Role Status Dates Shannon Gómez DO Primary Care Provider Active Start: September 16, 2024 End: September 16, 2024 Anibal Medrano DO Attending Provider Active S tart: September 16, 2024 End: September 16, 2024 Unit Support Representative Relationship Specialty Start Date End Date Eliceo Gómez, DO [address] [place] [address] PCP - General Family Medicine 04/04/23 Eliceo Gómez, DO [address] [place] [address] PCP - [facility] 05/06/23 Dipti Acevedo, DO [address] [place] [address] Referring Physician Obstetrics and Gynecology 05/20/24 Unit Support Representative Relationship Specialty Start Date End Date Eliceo Gómez, DO [address] [place] [address] PCP - General Family Medicine 04/04/23 Eliceo Gómez, DO [address] [place] [address] PCP - [facility] 05/06/23 Dipti Acevedo, DO [address] [place] [address] Referring Physician Obstetrics and Gynecology 05/20/24 Unit Support Representative Relationship Specialty Start Date End Date Eliceo Gómez, DO [address] [place] [address] PCP - General Family Medicine 04/04/23 Eliceo Gómez, DO [address] [place] [address] PCP - [facility] 05/06/23 Dipti Acevedo, DO [address] [place] [address] Referring Physician Obstetrics and Gynecology 05/20/24 Unit Support Representative Relationship Specialty Start Date End Date Eliceo Gómez, DO [address] [place] [address] PCP - General Family Medicine 04/04/23 Eliceo Gómez, DO [address] [place] [address] PCP - [facility] 05/06/23 Dipti Acevedo, DO [address] [place] [address] Referring Physician Obstetrics and Gynecology 05/20/24 Unit Support Representative Relationship Specialty Start Date End Date Eliceo Gómez DO [address] [place] [address] PCP - General Family Medicine 04/04/23 Eliceo Gómez, DO [address] [place] [address] PCP - [facility] 05/06/23 Dipti Acevedo, DO [address] [place] [address] Referring Physician Obstetrics and Gynecology 05/20/24 Unit Support Representative Relationship Specialty Start Date End Date Eliceo Gómez DO [address] [place] [address] PCP - General Family Medicine 04/04/23 Eliceo Gómez, DO [address] [place] [address] PCP - [facility] 05/06/23 Dipti Acevedo, DO [address] [place] [address] Referring Physician Obstetrics and Gynecology 05/20/24 Unit Support Representative Relationship Specialty Start Date End Date Eliceo Gómez DO [address] [place] [address] PCP - General Family Medicine 04/04/23 Eliceo Gómez, [address] [place] [address] PCP - [facility] 05/06/23 Dipti Acevedo, DO [address] [place] [address] Referring Physician Obstetrics and Gynecology 05/20/24 Unit Support Representative Relationship Specialty Start Date End Date Shannon Gómez, [address] [place] [address] PCP - General Family Medicine 11/14/23 Unit Support Representative Relationship Specialty Start Date End Date Eliceo Gómez DO [address] [place] [address] PCP - General Family [facility] 04/04/23 Eliceo Gómez, DO [address] [place] [address] PCP - [facility] 05/06/23 Dipti Acevedo, DO [address] [place] [address] Referring Physician Obstetrics and Gynecology 05/20/24 Unit Support Representative Relationship Specialty Start Date End Date Eliceo Gómez, DO [address] [place] [address] PCP - General Family Medicine 04/04/23 Eliceo Gómez DO [address] [place] [address] PCP - [facility] 05/06/23 Dipti Acevedo, DO [address] [place] [address] Referring Physician Obstetrics and Gynecology 05/20/24 Unit Support Representative Relationship Specialty Start Date End Date Eliceo Gómez, DO [address] [place] [address] PCP - General Family Medicine 04/04/23 Eliceo Gómez, DO [address] [place] [address] PCP - [facility] 05/06/23 Dipti Acevedo, DO [address] [place] [address] Referring Physician Obstetrics and Gynecology 05/20/24 Unit Support Representative Relationship Specialty Start Date End Date Eliceo Gómez Jr., DO [address], [address] [place] [address] PCP - General Family Medicine 12/11/19 Jenna Butler [address] Consulting Physician Behavioral Health 12/20/23 Unit Support Representative Relationship Specialty Start Date End Date Eliceo Gómez Jr., DO [address], [address] [place] [address] PCP - General Family Medicine 12/11/19 Unit Support Representative Relationship Specialty Start Date End Date Eliceo Gómez Jr., DO [address], [address] [place] [address] PCP - General Family Medicine 12/11/19 Unit Support Representative Relationship Specialty Start Date End Date Eliceo Gómez Jr., DO [address], [address] [place] [address] PCP - General Family Medicine 12/11/19 [facility] [address] [facility] [address] [place] [address] (Work) Consulting Physician Behavioral Health 12/20/23 Unit Support Representative Relationship Specialty Start Date End Date Eliceo Gómez Jr., DO [address], [address] [place] [address] PCP - General Family Medicine 12/11/19 [facility] [address] [place] [address] (Work) Consulting Physician Behavioral Health 12/20/23 Unit Support Representative Relationship Specialty Start Date End Date Eliceo Gómez Jr., DO [address], [address] [place] [address] PCP - General Family Medicine 12/11/19 [facility] [address] [facility] [address] [place] [address] (Work) Consulting Physician Behavioral Health 12/20/23 Unit Support Representative Relationship Specialty Start Date End Date Eliceo Gómez Jr., DO [address], [address] [place] [address] PCP - General Family Medicine 12/11/19 [facility] [address] [facility] [address] [place] Consulting Physician Behavioral Health 12/20/23 Unit Support Representative Relationship Specialty Start Date End Date Eliceo Gómez DO [address] [place] [address] PCP - General Family Medicine 04/04/23 Eliceo Gómez, [address] [place] [address] PCP - [facility] 05/06/2310/05 Dipti Acevedo, [address] [place] [address] Referring Physician Obstetrics and Gynecology 05/20/24 Unit Support Representative Relationship Specialty Start Date End Date Eliceo Gómez DO [address] [place] [address] PCP - General Family Medicine 04/04/23 Eliceo Gómez, [address] [place] [address] PCP - [facility] 05/06/2310/05 Dipti Acevedo, DO [address] [place] [address] Referring Physician Obstetrics and Gynecology 05/20/24 Unit Support Representative Relationship Specialty Start Date End Date Eliceo Gómez Jr., DO [address] [facility] [address] [place] [address] PCP - General Family Medicine 12/11/19 Jenna Butler 60[address] [facility] [address] [place] Consulting Physician Behavioral Health 12/20/23 Team Status: Inactive Member Role Status Dates Shannon Gómez DO Primary Care Provider Active Start: February 25, 2025 End: February 25, 2025 Monica Burns NP-C Attending Provider Active St art: February 25, 2025 End: February 25, 2025 Unit Support Representative Relationship Specialty Start Date End Date Eliceo Gómez DO [address] [place] [address] PCP - General Family Medicine 04/04/23 Eliceo Gómez DO [address] [place] [address] PCP - [facility] 05/06/2310/05 Dipti Acevedo DO [address] [place] [address] Referring Physician Obstetrics and Gynecology 05/20/24 Unit Support Representative Relationship Specialty Start Date End Date Eliceo Gómez Jr., [address], [address] [place] [address] PCP - General Family Medicine 12/11/[address] [place] [phone] (Work) Consulting Physician Behavioral Health 12/20/23 Team Status: Inactive Member Role Status Dates Shannon Gómez DO Primary Care Provider Active Start: April 30, 2025 End: April 30, 2025 Salma Galeas DO Attending Provider Active Start: April 30, 2025 End: April 30, 2025 Unit Support Representative Relationship Specialty Start Date End Date Eliceo Gómez Jr., DO [address], [address] [place] [address] PCP - General Family Medicine 12/11/[address] [place] [phone] (Work) Consulting Physician Behavioral Health 12/20/23 Unit Support Representative Relationship Specialty Start Date End Date Eliceo Gómez Jr., DO [address], [address] [place] [address] PCP - General Family Medicine 12/11/19 [facility] [address] [facility] [address] [place] Consulting Physician Behavioral Health 12/20/23 Unit Support Representative Relationship Specialty Start Date End Date Eliceo Gómez, [address] [place] [address] PCP - General Family Medicine 04/04/23 Dipti Acevedo, [address] [place] [address] Referring Physician Obstetrics and Gynecology 05/20/24 Unit Support Representative Relationship Specialty Start Date End Date Eliceo Gómez, [address] [place] [address] PCP - General Family Medicine 04/04/23 Dipti Acevedo, [address] [place] [address] Referring Physician Obstetrics and Gynecology 05/20/24 Unit Support Representative Relationship Specialty Start Date End Date Eliceo Gómez DO [address] [place] [address] PCP - General Family Medicine 04/04/23 Dipti Acevedo, [address] [place] [address] Referring Physician Obstetrics and Gynecology 05/20/24 Team Status: Inactive Member Role Status Henrietta Gómez DO Primary Care Provider Active Start: July 01, 2025 End: July 01, 2025 Monica Burns NP-C Attending Provider Active St art: July 01, 2025 End: July 01, 2025 Goals (unrecognized section and content) Goals [...] BE BASED ON THE PRIMARY CLINICAL RECORDS. [employer] [facility]. provides no warranty or guarantee of the accuracy or completeness of information in this document.
--- NOTE | 2025-07-09 08:54 | PM.CN ---
Consult Note: HPI Data of Consult Patient: known to practice within the last 3 years Requesting Physician: Monica Burns NP Primary Care Provider: Isatu CASTRO Consult Narrative Reason for consult: low back pain Narrative: Mary Leal a pleasant 55 year old female presents for evaluation of chronic low back pain. hx of lumbar spondylosis unresponsive to > 6 weeks of PT/HEP, heat, ice, tylenol, nsaids. currently utilizing zonegran 50mg HS with mild benefit without side effects. pain today 8/10 increasing to 10/10 with standing, bending, walking, twisting, pushing, pulling, lifting. pain sharp, aching, burning. lumbar MRI completed with minimal bulging disc at L4-5, no conerning findings. cc:: CC: Monica Burns NP Review of Systems ROS Status of ROS 10 or more systems reviewed and unremarkable except as noted in history and below Musculoskeletal Reports: back pain [facility] Medical History (Updated 06/12/25 @ 08:00 by Monica Burns NP) Strain of muscle(s) and tendon(s) of peroneal muscle group at lower leg level, right leg, initial encounter ?S86.311A - Strain of muscle(s) and tendon(s) of peroneal muscle group at lower leg level, right leg, initial encounter (ICD-10) Pain in right ankle and joints of right foot ?M25.571 - Pain in right ankle and joints of right foot (ICD-10) Primary osteoarthritis, right ankle and foot ?M19.071 - Primary osteoarthritis, right ankle and foot (ICD-10) Overactive bladder ?N32.81 - Overactive bladder (ICD-10) Insomnia ?G47.00 - Insomnia, unspecified (ICD-10) Bipolar disorder ?F31.9 - Bipolar disorder, unspecified (ICD-10) Gastroparesis ?K31.84 - Gastroparesis (ICD-10) Panic attacks ?F41.0 - Panic disorder [episodic paroxysmal anxiety] (ICD-10) OCD (obsessive compulsive disorder) ?F42.9 - Obsessive-compulsive disorder, unspecified (ICD-10) COVID-19 ?U07.1 - COVID-19 (ICD-10) Migraine ?G43.909 - Migraine, unspecified, not intractable, without status migrainosus (ICD-10) Gastritis ?K29.70 - Gastritis, unspecified, without bleeding (ICD-10) GERD (gastroesophageal reflux disease) ?K21.9 - Gastro-esophageal reflux disease without esophagitis (ICD-10) Peroneal tendinitis ?M76.70 - Peroneal tendinitis, unspecified leg (ICD-10) Posterior tibial tendon dysfunction ?M76.829 - Posterior tibial tendinitis, unspecified leg (ICD-10) Painful orthopaedic hardware ?T84.84XA - Pain due to internal orthopedic prosthetic devices, implants and grafts, initial encounter (ICD-10) Post op infection ?T81.40XA - Infection following a procedure, unspecified, initial encounter (ICD-10) Restless leg syndrome ?G25.81 - Restless legs syndrome (ICD-10) Tibialis anterior tendon tear, traumatic ?S86.219A - Strain of muscle(s) and tendon(s) of anterior muscle group at lower leg level, unspecified leg, initial encounter (ICD-10) Osteoarthritis ?M19.90 - Unspecified osteoarthritis, unspecified site (ICD-10) Back pain ?M54.9 - Dorsalgia, unspecified (ICD-10) Sleep disorder ?G47.9 - Sleep disorder, unspecified (ICD-10) PTSD (post-traumatic stress disorder) ?F43.10 - Post-traumatic stress disorder, unspecified (ICD-10) Depression ?F32.A - Depression, unspecified (ICD-10) Anxiety ?F41.9 - Anxiety disorder, unspecified (ICD-10) Sleep apnea ?G47.30 - Sleep apnea, unspecified (ICD-10) Asthma ?J45.909 - Unspecified asthma, uncomplicated (ICD-10) Constipation ?K59.00 - Constipation, unspecified (ICD-10) High cholesterol ?E78.00 - Pure hypercholesterolemia, unspecified (ICD-10) Hypertension ?I10 - Essential (primary) hypertension (ICD-10) Female rectocele with enterocele ?N81.6 - Rectocele (ICD-10) ?K46.9 - Unspecified abdominal hernia without obstruction or gangrene (ICD-10) 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 - Other specified functional intestinal disorders (ICD-10) Surgical History S/P foot surgery ?Z98.890 - Other specified postprocedural states (ICD-10) H/O cervical spine surgery ?Z98.890 - Other specified postprocedural states (ICD-10) S/P placement of nerve stimulator (01/02/24) ?Z96.82 - Presence of neurostimulator (ICD-10) S/P placement of nerve stimulator ?Z96.82 - Presence of neurostimulator (ICD-10) History of ankle surgery (11/13/23) ?Z98.890 - Other specified postprocedural states (ICD-10) H/O tooth extraction ?K08.409 - Partial loss of teeth, unspecified cause, unspecified class (ICD-10) H/O foot surgery (05/12/23) ?Z98.890 - Other specified postprocedural states (ICD-10) History of appendectomy (1987) ?Z90.49 - Acquired absence of other specified parts of digestive tract (ICD-10) History of colonoscopy ?Z98.890 - Other specified postprocedural states (ICD-10) History of colectomy (03/2022) ?Z90.49 - Acquired absence of other specified parts of digestive tract (ICD-10) History of tonsillectomy and adenoidectomy ?Z90.89 - Acquired absence of other organs (ICD-10) History of hysterectomy (2014) ?Z90.710 - Acquired absence of both cervix and uterus (ICD-10) History of arthroplasty of right ankle ?Z98.890 - Other specified postprocedural states (ICD-10) History of repair of rotator cuff ?Z98.890 - Other specified postprocedural states (ICD-10) S/P ankle ligament repair (2020) ?Z98.890 - Other specified postprocedural states (ICD-10) Family History Other Family history of Alzheimer's disease Family history of coronary artery disease Family history of heart disease Family history of hypertension Social History Within the past year, how often did you have a drink containing alcohol: never Score interpretation: A score less than 3 is consistent with normal alcohol consumption. Smoking status: Never smoker Non-prescribed substance use: denies use Previous occupational history: [employer] Highest level of school completed/degree received: some college, no degree Little interest or pleasure in doing things: not at all Feeling down, depressed, or hopeless: not at all Feel stressed/tense/nervous/anxious/difficulty sleeping: only a little Due to disability, difficulty making decisions: No Do you think of yourself as: straight/heterosexual Gender Identity: female Meds Home Medications and Allergies Home Medications ?Medication ?Instructions ?Recorded ?Confirmed ?Type ropinirole 1 mg tablet 1 mg PO BID 05/04/23 05/19/25 History fluticasone fur. 100 mcg-umeclid 1 inh inhalation Q24H 11/03/23 05/19/25 History 62.5 mcg-vilant 25 mcg inhalat.powder (Trelegy Ellipta) aripiprazole 300 mg suspension, 300 mg IM Q28D 05/17/24 05/19/25 History extended rel. intramuscular syringe (Lolis Rush) atenolol 50 mg tablet 50 mg PO Q24H 05/17/24 05/19/25 History losartan 25 mg tablet 25 mg PO DAILY 05/17/24 05/19/25 History omeprazole 40 mg capsule,delayed 40 mg PO DAILY 05/17/24 05/19/25 History release daridorexant 50 mg tablet (Quviviq) mg PO .hs 08/01/24 History galcanezumab-gnlm 120 mg/mL mg subcut 12/26/24 History subcutaneous pen injector (Emgality Pen) naltrexone 1.5 mg capsule mg PO 12/26/24 History dextroamphetamine-amphetamine 20 20 mg PO DAILY 05/05/25 05/19/25 History mg tablet (Adderall) zonisamide 50 mg capsule 50 mg PO DAILY #30 caps 06/12/25 Rx Allergies Allergy/AdvReac Type Severity Reaction Status Date / Time risperidone (From Risperdal) AdvReac Mild breast Verified 05/19/25 08:13 nipples leak Exam Constitutional Documenting provider has reviewed patient's vital signs: yes Common normals: no apparent distress, oriented x3, healthy appearing, alert and well nourished General appearance: cooperative HENMT Common normals: normocephalic, hearing grossly normal bilaterally and moist oral mucous membranes Head and scalp: normocephalic Eye Common normals: PERRL Pupil: PERRL Neck & C-Spine Common normals: full ROM General: normal visual inspection Chest Common normals: inspection of chest normal Respiratory Common normals: normal respiratory effort, no retractions and no use of accessory muscles Back & Pelvis Lumbar spine/lower back: ROM limited, pain with ROM and lumbar spinal tenderness; no paraspinal muscle tenderness, straight leg raise negative right and straight leg raise negative left Sacroiliac joints: SI joint(s) abnormal Other: left SIJ positive arcelia(patricks), gaenslens, thigh thrust, compression test strength 5/5 in BLE Neuro Common normals: oriented x3 Sensorium/orientation: alert Motor exam: strength 5/5 throughout and no movement abnormalities noted Psych Common normals: mental status grossly normal, thought process normal, cooperative, affect normal, speech normal and activity/motor behavior normal Speech: normal speech Thought process: normal thought process Results Additional Findings Additional findings: If on a controlled substance or opioids, I have checked an [place] report on this patient and there are no aberrancies noted in the prescribing history.??If on a controlled substance or opioid a drug screen was completed and reviewed within the last year, and if there has not been a drug screen completed we ordered one today to monitor higher risk, state monitored pain medication use. As part of providing excellent, safe, comprehensive care, the following was completed at our patient's visit: 1. A medication reconciliation and review to ensure accurate knowledge of current/active medications, including asking our patients to inform us about any [id number] medications or herbal remedies/nutritional supplements/alternative remedies. 2. A review to specifically ensure our patients have had annual screening for screening for depression, screening for tobacco use, and screening for unhealthy alcohol use. For concerning screenings had a discussion with the patient, provided patient education, and recommended follow-up with primary care provider when appropriate. If patient noted with a risk of falling, they received education on strength, gait, and balance training to prevent future risk of falling. Portions of this note may have been carried over from the previous visit and updated as appropriate. Please note this office utilizes paper charting in addition to the electronic medical record. A list of current medications, vitals, and PMH is available there as the clinical staff outside of myself do not have access to [facility] charting during the clinic day operations. As part of providing quality comprehensive care the current medications, vitals, and PMH were reviewed in the paper chart. Assessment and Plan Assessment and Plan (1) Sacroiliitis: Assessment and Plan: The patient has had over 3 months of moderate to severe low back and left SIJ pain with functional impairment and inadequate response to conservative care including NSAIDS (unless there are contraindication such as concurrent blood thinners), multiple oral or topical pain medications, and home exercise program/physical therapy.? Patient has completed >6 weeks of guided home exercise program and/or formal physical therapy program without relief of their symptoms.? The Oswestry Disability Index was completed, and the patient scored a 58%.? The patient noted the following:?? moderate to severe pain impacting ADLS, sitting, standing, sleeping, social life, travel (2) Intercostal neuralgia: Assessment and Plan: 04/14/25 left T8/9 T9/10 intercostal RFA >80% improvement ongoing zonegran 50mg HS providing significant improvement (3) Myofascial pain: Plan left SIJ injection under fluoroscopy for sacroiliitis continue zonegran 50mg hs start diclofenac 75mg BID prn pain, take with food continue HEP/stretching as tolerated f/u 2 weeks after injection
== END 2025-07-09 08:34 | disposition home or self-care (01) ==
LOC: PM 08:34
PROVIDERS: PCP Family Medicine; Visit Provider Nurse Practitioner
DX: M46.1 Sacroiliitis, not elsewhere classified (principal); G58.0 Intercostal neuropathy; M79.18 Myalgia, other site
CPT/HCPCS: G0463

== ENCOUNTER 2025-07-21 07:00 | Day surgery (SDC) | payer OTHER, MEDICARE, SELFPAY ==
--- OUTSIDE RECORDS SUMMARY | 2025-07-21 07:08 | XMS_ITS | CCD ---
Author Organization [facility] ion Partnership [facility] Care Team Providers Care Engine Repairer Service Name Role Phone PARISH GÓMEZ Primary Care Unavailable Eliceo Gómez Jr. Primary Care Provider Gwendolyn Stroud Unavailable Maximus OROSCO, Gwendolyn Unavailable [phone] Beto Snyder Unavailable Tita Daugherty Unavailable Erica Kingston Unavailable Eliceo Gómez Unavailable Unavailable Unavailable Allison Arita Unavailable Eliceo Gómez Jr. Primary Care Provider Maximus OROSCO, Gwendolyn Unavailable Eliceo Gómez Unavailable DO Shannon Gómez Primary Care Provider MD Beto Snyder Attending Provider Eliceo Gómez Jr. Primary Care Provider Maximus OROSCO Gwendolyn Unavailable [phone] Beto Cartagena Unavailable MD Beto aCrtagena Attending Provider [phone] WINSTON HANNAH Attending Unavailable WINSTON HANNAH [...] DR Isatu LUGO Primary Care Unavailable SHERLYN MCGHEE Consulting Unavailable HIGHLANDER, SADE Kenny Attending Unavailable [...] Unavailable ZIEBER, DR ZAIDA Ellis Consulting Unavailable SADE FELIX Consulting Unavailable KAREEM, NIECY Attending Unavailable KAREEM, [...] DALIA, DR Isatu LUGO Primary Care Unavailable TAIN ., CHASITY Admitting Unavailable NICKI BUTT Unavailable TANI ., CHASITY Consulting Unavailable MAKENNA TRIPLETT Consulting Unavailable DALIA, DR Isatu LUGO Primary Care Unavailable ELIAS ., DR ELDER Rios Admitting Unavailable ELIAS ., DR ELDER Rios Attending Unavailable ELIAS ., DR ELDER Rios Consulting Unavailable WEST, DR NICKI Gale Consulting Unavailable SADE FELIX Consulting Unavailable EDUARDO ., NANCY LAMA Consulting Unavailable GEMBUSDAWNA Consulting Unavailable SADE FELIX Consulting Unavailable SADE FELIX Attending Unavailable SADE FELIX Admitting Unavailable KALEIGHA, [...] Jr., DO, George Robert Primary Care Provi pa PAULINE CHRISTENSEN Attending Unavailable ELICEO GÓMEZ JR Referring Unavailable ELICEO GÓMEZ JR Primary Care Unavailable DO Shannon Gómez Primary Care Provider DO Tez Vazquez Attending Provider PAM WANG Referring Unavailable ELICEO GÓMEZ JR Primary Care Unavail able Dalia Morales DO, George Robert Primary Care Provi pa ELICEO GÓMEZ JR Primary Care Unavail able WANG, PAM Admitting Unavailable WANG, PAM Attending Unavailable WANG, PAM Referring Unavailable HERNANDEZAN , ELICEO LUGO Primary Care Unavail able JAIRON LAI Attending Unavailable WANG, PAM Attending Unavailable KAJEROMEAN JR, ELICEO LUGO Primary Care Unavail able KAJEROMEAN JR, ELICEO LUGO Primary Care Unavail able NELSY CHÁVEZ Attending Unavailable FLOWER LOPEZ Attending Unavailable HERNANDEZAN , ELICEO LUGO Primary Care [...] Unavailable Shannon Gómez DO Primary Care Provider [phone] DO Shannon Gómez Primary Care Provider [phone] FADUMO Felix Attending Provider Unavailable Primary Care Provider Unavailjan e Eliceo Gómez DO Primary Care Provider Eliceo Gómez DO Unavailable [phone] Dipti Acevedo DO Unavailable [phone] Grant NIETOCMonica Attending Provider [phone] Shannon Gómez DO Primary Care Provider Anibal Medrano DO Attending Provider [phone] Dipti Acevedo DO Attending Provider Brisa BENSON, Pamdaja Attending Provider Dalia Morales DO, George R [...] Referring Unavailable Shannon GÓMEZ Primary Care Unavailable STEPHONShannon AHUJA Referring Unavailable LI, NA Referring Unavailable Shannon GÓMEZ Primary Care Unavailable MERISSA DELAROSA Attending Unavailable LI, NA Referring Unavailable Shannon GÓMEZ Primary Care Unavailable RADHA CARDENAS Attending Unavailable RADHA CARDENAS Attending Unavailable Shannon GÓMEZ Primary Care Unavailable STEPHONShannon AHUJA Referring Unavailable STEPHONLEIGHA, Shannon LUGO Referring Unavailable RADHA CARDENAS Attending Unavailable Shannon GÓMEZ Primary Care Unavailable LI, NA Referring Unavailable Shannon GÓMEZ Primary Care Unavailable MILAGROS FRANCO Attending Unavailab le Eliceo Gómez DO Unavailable CHRISTENSEN, AJAZ Referring Unavailable CHRISTENSEN, AJAZ Referring Unavailable CHRISTENSEN, AJAZ Attending Unavailable CHRISTENSEN, AJAZ Attending Unavailable CHRISTENSEN, AJAZ Attending Unavailable Shannon Gómez DO Primary Care Provider Anibal Medrano DO Attending Provider Everett Valdez MD Attending Provider Shannon Gómez DO Primary Care Provider [phone] Monica Linares Attending Provider [phone] Shannon Gómez DO Primary Care Provider Everett Valdez MD Attending Provider Salma Galeas DO Attending Provider Brandyn BENSON, Andrius Vytautas Attending Unavailable Giedraitis , Andrius Vytautas Attending Unavailable Giedraitis , Andrius Vytautas Attending Unavailable Giedraitis , Andrius Vytautas Attending Unavailable Giedraitis , Andrius Vytautas Attending Unavailable Giprietoraitis , Andrius Vytautas Attending Unavailable Gipelon BENSON, Andrius Vytautas Attending Unavailable Giedragopi BENSON, Andrius Vytautas Attending Unavailable Giedragopi BENSON, Andrius Vytautas Attending Unavailable Shannon Gómez DO Primary Care Provider Grant TRACY-CMonica Attending Provider Anibal Medrano Attending Unavailable Bialaski, Anibal N Admitting Unavailable Kaftan, G. Parish Primary Care Unavailable Grant Monica E Admitting Unavailable Kaftan, G. Parish Primary Care Unavailable Monica Burns Attending Unavailable Li, Na Admitting Unavailable Kaftan, G. Parish Primary Care Unavailable Li, Na Attending Unavailable Bialdailyi, Anibal N Attending Unavailable Bialaski, Anibal N Admitting Unavailable Kaftan, G. Parish Primary Care Unavailable Dipti Acevedo Attending Unavailable Dipti Acevedo Admitting Unavailable Kaftan, G. Parish Primary Care Unavailable Monica Burns Admitting Unavailable Kaftan, G. Parish Primary Care Unavailable Monica Burns Attending Unavailable Hernandezan, G. Parish Primary Care Unavailable Everett Valdez Attending Unavailable Everett Valdez Admitting Unavailable Stephonftan, G. Parish Primary Care Unavailable Everett Valdez Attending Unavailable Everett Valdez Admitting Unavailable Bialaski, Anibal N Attending Unavailable Mitchell, Anibal N Admitting Unavailable Kaftan, G. Parish Primary Care Unavailable Monica Burns Admitting Unavailable Kaftan, G. Parish Primary Care Unavailable Monica Burns Attending Unavailable DALIA, ELICEO Ellis Attending Unavailable NANCY SWENSON Attending Unavailable NANYC SWENSON Attending Unavailable DIPTI ACEVEDO Attending Unavailable CHANTALE SWEET Attending Unavailable DIPTI ACEVEDO Referring Unavailable ELICEO GÓMEZ Attending Unavailable ELICEO GÓMEZ R Referring Unavailable KAJEROMEANELICEO R Referring Unavailable RON KING Attending Unavailable HERNANDEZAN, ELICEO Ellis Referring Unavailable DIPTI ACEVEDO Attending Unavailable DIPTI ACEVEDO Attending Unavailable RON KING Attending Unavailable DIPTI ACEVEDO Attending Unavailable DIPTI ACEVEDO Attending Unavailable DIPTI ACEVEDO Attending Unavailable DIPTI ACEVEDO Attending Unavailable NELSY SNYDER Attending Unavailable ALBERTO SOLIS Attending Unavailable KAELICEO AHUJA JR R Referring Unavailable KAFTELICEO DELVALLE JR R Primary Care Unavailable ALBERTO SOLIS Admitting Unavailable ALBERTO SOLIS Attending Unavailable ALBERTO SOLIS Referring Unavailable KAFTAN ELICEO JENKINS R Primary Care Unavailable INGRID BHAT Attending Unavailable ELICEO GÓMEZ JR Referring Unavailable ELICEO GÓMEZ JR Primary Care Unavailable HEALTH, 360 Referring Unavailable ELICEO GÓMEZ JR Primary Care Unavailable PAULINE CHRISTENSEN Referring Unavailable ELICEO GÓMEZ JR Primary Care Unavailable PAULINE CHRISTENSEN A Referring Unavailable ELICEO GÓMEZ JR Primary Care Unavailable INGRID BHAT Referring Unavailable ELICEO GÓMEZ JR Primary Care Unavailable Allergies Allergy Classification Reported Allergen(s) Allergy Type Date of Onset Reaction(s) Facility risperiDONE (1 source) risperiDONE Drug Allergy 9 [facility] (20 sources) risperiDONE; Translations: [RisperDAL TABS] Drug Allergy 0 Intolerance, Other (See Comments) [facility] (1 source) oxyCODONE Drug Allergy [facility] (1 source) risperiDONE Drug Allergy [facility] Repository (20 sources) POISON BRENDA EXTRACT; Translations: [POISON BRENDA EXTRACT] Drug Allergy 3 Rash [facility] (20 sources) risperiDONE Drug Allergy 9 [facility] (1 source) risperiDONE Drug Allergy [facility] Repository (1 source) POISON BRENDA; Translations: [POISON BRENDA] Propensity to adverse reactions to drug (disorder) [facility] (3 sources) Poison Brenda Extract Propensity to adverse reactions 3 Rash [facility] Healthcare Work Phone: (1 source) risperiDONE Drug Allergy 5 [facility] Repository Medications Current Medications Medication [...] 1 tablet by mouth every twelve hours [id number] 200 actuat albuterol 0.09 mg/actuat metered dose [...] if needed Albuterol-Budesonide (Airsupra) 90-80 MCG/ACT aerosol (8 sources) Start: Albuterol-Budesonide (Airsupra) 90-80 MCG/ACT aerosol Indications: Mild persistent asthma with acute exacerbation (HCC) Inhale 2 Inhalations every 4 (four) hours if needed (for wheezing) 10.7 g 11 06/06/2025 Active 24 hr amphetamine aspartate 6.25 mg / amphetamine sulfate 6.25 mg / dextroamphetamine saccharate 6.25 mg / dextroamphetamine sulfate 6.25 mg extended release oral capsule (9 sources) Central Nervous System Stimulant Start: take 1 capsule by mouth every twenty-four hours amphetamine-dextroamp hetamine XR (ADDERALL XR) 25 mg 24 hr capsule Take by mouth. 05/16/2025 Active ARIPiprazole 400 mg extended release prefilled syringe (20 sources) Atypical Antipsychotic Start: Abilify Maintena 400 MG injection syringe INJECT [...] the appropriate muscle every 28 days. Active End: 06-24-2025 ARIPiprazole ER (Abilify) 40 0 MG injection Inject 400 mg into the shoulder, thigh, or buttocks 1 (one) time 06/24/2025 Discontinued (Duplicate order) ARIPiprazole mon ohydrate (ABILIFY MAINTENA) 300 mg [...] every afternoon. baclofen 10 mg oral tablet (12 sources) gamma-Aminobutyric Acid-ergic Agonist Start: 05-06-2025 take [...] mo uth twice a day if needed cetirizine hydrochloride [...] order) Start: 03-11-2024 take 1 tablet by yancy once daily Vitamin D3 125 MCG (5000 UT) per tablet Take 1 tablet by mouth daily. 90 tablet 3 03/11/2024 Active Start: 05-12-2023 take 1 capsule by [facility] once daily cholecalciferol, vitamin D3, 5,000 units [...] Take 1,000 Units by mouth once daily. clobetasol propionate 0.5 mg/ml topical cream (2 sources) Corticosteroid Start: 07-09-20 25 clobetasol (Temovate) 0.05 % cream Indications: Rash and other nonspecific skin eruption Apply (1g) to affected areas (arm/buttock), up to twice a day when flared, do not use one the face, groin, or underarms, 30 day supply 60 g 11 07/09/2025 Active 168 hr cloNIDine 0.77675 mg/hr transdermal system (4 sources) Central alpha-2 Adrenergic Agonist Start: 09-27-20 23 cloNIDine (CATAPRES-TTS) 0.1 mg/[address] 1 patch on the skin once a week. New patch on Monday 0 09/27/2023 Active colestipol hydrochloride 1000 mg oral tablet (20 sources) Bile Acid Sequestrant Start: 10-23-20 24 take 1 tablet by mouth at bedtime colestipoL (COLESTID) 1 g tablet Indications: Diarrhea, unspecified type Take 1 tablet (1 g total) by mouth in the morning and 1 tablet (1 g total) before bedtime. 60 tablet 3 06/06/2025 Active End: 06-06-2025 colestipoL (COLESTID) 1 g ta blet Take by mouth every 12 (twelve) hours. 06/06/2025 Discontinued (Reorder) cyproheptadine hydrochloride 4 mg oral tablet (12 sources) Start: 01-09-2025 take 1 tablet by mouth once daily as needed cyproheptadine (PERIACTIN) 4 mg tablet Take 1 tablet (4 mg total) by mouth daily as needed. 01/09/2025 Active Daridorexant (9 sources) Start: 09-16-2024 [...] as dir ected. daridorexant 50 mg tablet (13 sources) take 1 tablet by mouth once [...] Propionate (Flon ase Allergy Relief) 50 mcg/actuation [place],Suspension Discontinued 2 SPRAY INTRANASAL Daily October 15, 2018 1:00am June 18, 2019 3:04pm Comment on above: Use 1 [place] in each nostril once daily. 30 actuat [...] Indications: Mild intermittent asthma, unspecified whether complicated ([facility]) INHALE 1 PUFF BY MOUTH DAILY 60 each 1 08/15/2024 Active Start: 01-11-2024 End: 12-08-2024 take 1 puff(s) by inhalation once daily Qaqxxbfkifu-Vcgywyamo-Mxnpsd 100-62.5-25 MCG/ACT aerosol powder Indications: Asthma Inhale [...] puff(s) by in halation in the morning unolpjpuivz-zefjnrgkm-vturytrn (TRELEGY ELLIPTA) 100-62.5-25 mcg blister with device Indications: Asthma, unspecified asthma severity, unspecified whether complicated, unspecified whether persistent Inhale 1 puff in the morning. 60 each 5 05/31/2022 Active End: 07-11-2024 Mjvygunmpul-Jpbgkbtok-Lnjphq (Trelegy Ellipta) 100-62.5-25 MCG/ACT aerosol powder Inhale [...] every month. Do not shake. hydrOXYzine hydrochloride 25 mg oral tablet (20 sources) Antihistamine Start: 07-09-20 take 1 tablet by mouth every 30 days as needed hydrOXYzine HCl (Atarax) 25 MG tablet Indications: Rash and other nonspecific skin eruption Take 1 tablet, by mouth, as needed for itching, 30 day supply. 30 tablet 2 07/09/2025 Active Start: 02-18-2020 End: 06-05-2023 take 1 tablet by mouth once daily at bedtime Hydroxyzine Hcl 50 mg Tablet Discontinued 50 MG PO Daily at bedtime February 18, 2020 12:00am June 05, 2023 10:13am Start: 12-19-2018 End: 06-18-2019 take 1 tablet by mouth twice daily Hydroxyzine Hcl 25 mg Tablet Discontinued 25 MG PO Twice daily December 19, 2018 1:00am June 18, 2019 3:04pm inulin 200 mg / lactobacillus rhamnosus gg [id number] unt oral capsule (1 source) Start: 06-07-2022 End: 07-07-2022 take 1 capsule by mouth once daily lactobacillus rhamnosus (CULTURELLE) 10 billion cell -200 mg capsule Take 1 capsule by mouth once daily. 30 capsule 0 06/07/2022 07/07/2022 Active Comment on above: Take 1 capsule by [facility] once daily. iv contrast (will be provided with radiology test) (2 sources) Start: 07-26-2022 End: 07-27-2022 iv contrast (will be provided with radiology [...] once daily. lidocaine 0.05 mg/mg medicated patch (3 sources) Antiarrhythmic, Amide Local Anesthetic Start: 025 lidocaine (LIDODERM) 5 % APPLY 1 PATCH TO AFFECTED AREA FOR 12 HOURS, THEN REMOVE FOR 12 HOURS 04/02/2025 Active lisdexamfetamine dimesylate 70 mg oral capsule (20 sources) Central Nervous System Stimulant Start: take 1 capsule by mouth once [...] on above: Take 1 capsule by mo [facility] every afternoon. LORazepam 1 mg oral tablet [...] once daily meloxicam 15 mg oral tablet (9 sources) Nonsteroidal Anti-inflammatory Drug Start: 01-03-2025 take [...] 2020 10:26am Multiple Vitamin (Daily-Elisa Multivitamin) tablet (16 sources) Start: 11-04-2024 take 1 tablet by mouth once daily Multiple Vitamin (Daily-Elisa Multivitamin) tablet Take 1 tablet by mouth Daily 11/04/2024 Active naltrexone hydrochloride 50 mg oral tablet (2 sources) Opioid Antagonist take 4.5 mg by mouth in the morning naltrexone (REVIA) 50 mg tablet Take 4.5 mg by mouth in the morning. Active nystatin 717127 unt/ml oral suspension (20 sources) Polyene Antifungal Start: 08-01-2024 End: 08-09-2024 nystatin (Mycostatin) 094085 UNIT/ML suspension Indications: Oral candidiasis Take 5 mL (500,000 Units) by mouth in the morning and 5 mL (500,000 Units) at noon and 5 mL (500,000 Units) in the evening and 5 mL (500,000 Units) before bedtime. Do all this for 8 days. 160 mL 08/01/2024 08/09/2024 Active Start: 05-03-2024 End: 07-11-2024 nystatin (Mycostatin) 947008 UNIT/ML suspension Take 5 mL by mouth [...] by mouth f our times daily Start: 01-24-2021 Comment on above: Apply 1 application to [...] bedtime. rimegepant 75 mg disintegrating oral tablet (13 sources) Start: 3 rimegepant 75 mg tablet,disintegratin g Indications: Other migraine without status migrainosus, not intractable Dissolve 1 tablet on tongue daily as needed (Migraine headache). 12 tablet 4 10/23/2023 Active rOPINIRole 1 mg oral tablet (20 sources) Nonergot Dopamine Agonist Start: take 1 tablet by mouth in the [...] 8.6 mg oral tablet (6 sources) Start: End: 4 take 1 tablet by [...] 2 (two) times a day 45 g 11/27/2024 Active Start: 09-04-2024 triamcinolone (Kenalog) 0.1 [...] vitamin D2-vitamin K1 20-120 mcg/4 drops drops (3 sources) vitamin D2-vitam in K1 20-120 mcg/4 drops drops Active zonisamide 50 mg oral capsule (6 sources) Anti-epileptic Agent Start: 06-12-2025 take 1 [...] PO Q8H 21 7 September 20, 2017 1:00am October 01, 2018 [...] Start: 06-05-2023 take 1 capsule by mo njh once daily Dexlansoprazole (Dexilant) 60 mg Capsule,Biphase Delayed Releas Active 60 MG PO Daily June 05, 2023 12:00am diazePAM 10 mg oral tablet (6 sources) Benzodiazepine Start: 07-05-2024 End: 09-04-2024 diazePAM (Valium) 10 MG tablet Take 10 mg by mouth 07/05/2024 09/04/2024 Discontinued (Therapy completed) docusate sodium 50 mg / sennosides, detention 8.6 mg oral tablet (16 sources) Start: [...] Comment on above: Take 2 capsules by mouth three times a d ay as needed for up to 10 days. ibuprofen 800 mg oral tablet (13 sources) [...] for pain. Take 1 tablet by yancy every 6 hours as needed for pain for up to 7 days. lactobacillus rhamnosus gg [id number] unt oral capsule (20 sources) Start: 2 [...] Discontinued Start: 12-27-2021 take 1 capsule by [facility] once daily lactobacillus rhamnosus (CULTURELLE) 10 billion cell capsule Take 1 capsule by mouth once daily. 30 capsule 0 12/27/2021 Active Comment on above: Take 1 capsule by [facility] once daily. linaclotide 0.145 mg oral capsule [...] Comment on above: Take 2 tablets by [facility] as directed. Take 2 tablet at 6pm, [...] Comment on above: Take 1 capsule by [facility] twice daily. 24 hr oxybutynin chloride 10 mg extended release oral tablet (16 sources) Cholinergic Muscarinic Antagonist Start: End: take 1 tablet by mouth once daily Oxybutynin Chloride (Ditropan Xl) 10 mg Tablet Extended Release 24hr Discontinued 10 MG PO Daily October 01, 2018 1:00am June 19, 2019 1:23pm phenazopyridine hydrochloride 200 mg oral tablet (16 sources) Start: End: take 1 tablet by mouth every eight hours Phenazopyridine (Pyridium) 200 mg tablet Discontinued 200 MG PO Q8H 6 2 February 18, 2020 12:00am Ashley 31st, 2023 10:13am polyethylene glycol 3350 61475 mg powder for oral solution (3 sources) [...] Comment on above: [facility] psyllium 520 mg oral capsule (3 sources) Start: 12-27-2021 End: 02-08-2022 psyllium Husk (METAMUCIL) 0.52 gram capsule Take 1 capsule by mouth as directed. As needed for constipation 0 12/27/2021 02/08/2022 Discontinued (Course of therapy completed) Comment on above: Take 1 capsule by mo [facility] as directed. As needed for constipation QUEtiapine [...] Comment on above: Take 2 tablets by [facility] three times daily as needed. simethicone in [...] on above: Take 1,000 mcg by mo [facility] once daily. 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] Onset: 0 08-07-2024 Chronic Mood disorders (20 sources) Bipolar I disorder; Translations: [Bipolar disorder, unspecified] Onset: 2 Resolved: 5 10-08-2020 Chronic Mycoses (4 sources) Candidiasis of skin; Translations: [Candidiasis of skin and nail] Episodic Neoplasms of unspecified nature or uncertain behavior (2 sources) Neoplastic disease; Translations: [Neoplasm of unspecified behavior of bone, soft tissue, and skin] 07-09-2025 Episodic Noninfectious gastroenteritis (1 source) Chronic diarrhea; [...] Other usp (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; Translations: [OTH PENITENTIARY CURRENT DRUG THERAPY] Onset: 3 Episodic Other [...] [Gas] Onset: 5 Episodic Other gastrointestinal disorders (20 sources) Dysphagia; Translations: [Dysphagia, unspecified] Onset: 3 Resolved: 4 01-23-2024 Episodic Other gastrointestinal disorders (2 sources) Motility [...] Chronic Other nervous system disorders (2 sources) Neuropathy; Translations: [Polyneuropathy, unspecified] 07-15-2025 Chronic Other nervous system disorders (2 sources) Polyneuropathy, unspecified; Translations: [Polyneuropathy, unspecified] Onset: 5 Chronic Other nervous system disorders (5 sources) Other acute postprocedural pain; Translations: [OTHER ACUTE POSTPROCEDURAL PAIN] Onset: 2 Episodic Other nervous system disorders (3 sources) Hyperreflexia; Translations: [Abnormal reflex] 07-15-2025 Episodic Other non-traumatic joint disorders (2 sources) [...] Translations: [Other melanin hyperpigmentation] 11-19-2024 Episodic Other skin disorders (2 sources) Eruption; Translations: [Rash and other nonspecific skin eruption] 07-09-2025 Episodic Other upper respiratory disease (19 sources) [...] unspecified] Onset: 01-25-2024 01-22-2024 Episodic Allergic reactions (20 sources) Atopic [...] lability] Onset: 04-04-2023 04-04-2023 Episodic Mood disorders (20 sources) Mood disorders Onset: 10-23-2023 Resolved: 07-15-2025 10-23-2023 Nausea and vomiting (20 sources) Nausea [...] 09-07-2023 Chronic Other gastrointestinal disorders (20 sources) Burping; Translations: [...] Episodic Other nutritional; endocrine; and metabolic disorders (9 sources) Weight decreased; Translations: [Abnormal weight loss] Onset: 09-08-2023 Resolved: 06-23-2025 09-08-2023 Episodic Other screening for suspected conditions (not mental disorders or infectious disease) (20 sources) Mammography abnormal; Translations: [Other abnormal and inconclusive findings on diagnostic imaging of breast] Onset: 04-04-2023 04-04-2023 Episodic Other upper respiratory disease (20 sources) Nasal congestion; Translations: [Nasal congestion] Onset: 03-08-2021 12-19-2023 Episodic Residual codes; unclassified (20 sources) Daytime [...] Test Name Value Interpretation Reference Range Facility FREE LIGHT CHAINSon 07-16-20 FREE SAUL/LAMBD RATIO 0.88 Normal 0.26-1.65 [facility] Comment on above: Performed By: #### 3 5275-7, 58600-3, 8014-3, 5193-8, 6476-6 #### [facility] ([id number]) [address], [facility] [address] [place] [address] FREE KAPPA LT CHAINS 1.69 mg/dL Normal 0.33-1.94 [facility] Comment on above: Performed By: #### 3 5275-7, 43225-3, 8014-3, 5193-8, 6476-6 #### [facility] ([id number]) [address], [address] [place] [address] FREE LAMBDA LT CHAINS 1.93 mg/dL Normal 0.57-2.63 [facility] Comment on above: Performed By: #### 3 5275-7, 15723-9, 8014-3, 5193-8, 6476-6 #### [facility] ([id number]) [address], [address] [place] [address] METHYLMALONIC ACID, QN, Armando 07-16-2025 METHYLMALONIC ACID, QN, P 0.09 nmol/mL Normal <=0.40 [facility] Comment on above: Result Comment: ADDITIONAL INFORMATION This test was developed and its performance characteristics determined by [facility] in a manner consistent with CLIA requirements. This test has not been cleared or approved by the U.S. Food and Drug Administration. Test Performed by: [address] [address] [employer]: Sindi Archibald Ph.D.; CLIA# [id number] Performed By: #### 3 5275-7, 99636-6, 8014-3, 5193-8, 6476-6 #### [facility] ([id number]) [address], [address] [place] [address] SERUM IMMUNOFIXATIONon 07-16 IgA [Mass/Vol] 213 mg/dL Normal 68-378 [facility] Comment on above: Performed By: #### 3 5275-7, 88233-7, 8014-3, 5193-8, 6476-6 #### [facility] ([id number]) [address], [address] [place] [address] IgG [Mass/Vol] 691 mg/dL Normal 635-1741 [facility] Comment on above: Performed By: #### 3 5275-7, 46900-9, 8014-3, 5193-8, 6476-6 #### [facility] ([id number]) [address], [facility] [address] [place] [address] IgM [Mass/Vol] 66 mg/dL Normal 45-281 [facility] Comment on above: Performed By: #### 3 5275-7, 79702-1, 8014-3, 5193-8, 6476-6 #### [facility] ([id number]) [address], [address] [place] [address] IMMUNOFIX INTERP Unremarkable pattern and quantitation, no monoclonal bands Normal [facility] Comment on above: Performed By: #### 3 5275-7, 89898-8, 8014-3, 5193-8, 6476-6 #### [facility] ([id number]) [address], [address] [place] [address] VITAMIN B12on 07-16-2025 Cobalamin (Vitamin B12) [Mass/Vol] 730 pg/mL Normal 180-914 [facility] Comment on above: Performed By: #### 3 5275-7, 93794-2, 8014-3, 5193-8, 6476-6 #### [facility] ([id number]) [address] [place] [address] BI MAMMOGRAM SCREENING TOMOS YNTHESIS BILATERALon 07-11-2025 BI MAMMOGRAM SCREENING TOMOSYNTHESIS BILATERAL This is a summary report. The complete report is available in the patient's medical record. If you cannot access the medical record, please contact the sending organization for a detailed fax or copy. Examination: BI MAMMOGRAM SCREENING TOMOSYNTHESIS BILATERAL Clinical History: screening Technique: Screening digital mammography study of both breasts was performed with 2-D and 3-D tomosynthesis imaging. Study was compared to the prior exam dated 10/31/2023. Findings: There is no evidence of interval dominant spiculated mass, grouped microcalcifications, or skin thickening which would be suggestive of malignancy. A few focal benign-appearing calcifications are seen bilaterally. Minimal benign-appearing vascular calcification is noted on the right. Axillary lymph nodes including a partially visualized lymph node are noted on the right. Partially visualized power pack is noted on the right posteromedially. IMPRESSION: Impression: No specific evidence of malignancy seen in either breast. BIRADS 2 - Benign Findings DENSITY: The breasts are heterogeneously dense, which may obscure small masses. FOLLOW-UP: Routine Screening Mammogram ELECTRONICALLY SIGNED BY: Bi [place]a M.D. Normal Not Available Comment on above: Order Comment: Us or spot compression prn No Panel Informationon 07-09 Type of biopsy: tangential Informed consent: discussed and consent obtained Informed consent comment: The risks and benefits of the biopsy were discussed. Risks include but are not limited to bleeding, infection, scarring, pain, and nerve damage. An opportunity to ask questions prior to the procedure was permitted and all questions were answered. Patient was prepped and draped in usual sterile fashion: area cleansed with alcohol. Anesthesia: the lesion was anesthetized in a standard fashion Anesthetic: 1% lidocaine w/ epinephrine 1-100,000 buffered w/ 8.4% NaHCO3 Instrument used: DermaBlade Hemostasis achieved with: electrodesiccation Outcome: patient tolerated procedure well Outcome comment: The specimen was placed in a prelabeled formalin container to be sent for pathology Post-procedure details: sterile dressing applied and wound care instructions given Post-procedure details comment: Emphasized need to contact clinic for any signs of infection, uncontrollable bleeding, or complications. Dressing type: bandage Additional details: Photo taken Amount of lidocaine used: 0.7 cc NEXGRID [employer] [facility] MR lumbar spine wo conon MR lumbar spine wo con [facility] [place] [address] MRI Report Signed Patient: Mary Leal MR#: [id number] : 1970 Acct:[id number] Age/Sex: 55 / F ADM Date: 07/01/25 Loc: [facility] Room: Type: [facility] Attending Dr: Monica IBARRA Copies to: [...] Garcia M.D. 07/01/2025 3:21 PM Dictation Location: [facility]17 Transcribed By: MARIO 07/01/25 1521 Dictated By: Howie Garcia II, MD 07/01/25 1514 Signed By: 07/01/[address] [facility] Magnetic resonance imaging r eportOrdered By: Howie Garcia on 07-01-[address] [facility] [place] [address] MRI Report Signed Patient: Mary Leal MR#: [id number] : 1970 Acct:[id number] Age/Sex: 55 / F ADM Date: 5 [facility]: Type: [facility] Attending Dr: Monica IBARRA Copies to: [...] Garcia M.D. 07/01/2025 3:21 PM Dictation Location: [place] [address] Transcribed By: [facility] 07/01/25 152 Dictated By: Howie Garcia II, MD 07/01/25 1514 Signed By: 07/01/25 1521 [facility] Work Phone: XR FOOT RT MIN 3Von 06-25-[address] [address] XRay Report Signed Patient: MARY LEAL MR#: [id number] : 1970 Acct:[id number] Age/Sex: 55 / F ADM Date: 06/25/25 Loc: RAD Attending Dr: Sade Felix D.P.M. Ordering Physician: Sade Felix D.P.M. Date of Service: 06/25/25 Procedure(s): XR foot RT min 3V Accession Number(s): [id number] cc: Sade Felix D.P.M.; Isatu GÓMEZ [address] [address] Patient Name: MARY LEAL MRN: [id number] date: 1970 Sex: F Assigned Patient Location: RAD Current Patient Location: RAD Accession/Order Number: [id number] Exam Date: 06/25/2025 12:56 Report Date: 06/25/2025 [...] Weber M.D. 06/25/2025 12:58 PM Dictation Location: [place] [address] Electronically authenticated by: [id number] Y Date: 06/25/2025 12:58 Dictated By: Eitan Weber M.D. Signed By: 06/25/25 1301 DD/ 1258 TD/TT: Thermoscrew Operator: [facility] Radiology, Radiologist, MD - 06/25/2025 [place] [address] XRay Report Signed Patient: MARY LEAL MR#: [id number] : 1970 Acct:[id number] Age/Sex: 55 / F ADM Date: 06/25/25 Loc: RAD Attending Dr: Sade Felix D.P.M. Ordering Physician: Sade Felix D.P.M. Date of Service: 06/25/25 Procedure(s): XR foot RT min 3V Accession Number(s): [id number] cc: Sade Felix D.P.M.; Isatu GÓMEZ [place] [address] Patient Name: MARY LEAL MRN: [facility]:[id number] date: 1970 Sex: F Assigned Patient Location: [facility] Current Patient Location: [facility] Accession/Order Number: [id number] Exam Date: 06/25/2025 12:56 Report Date: 06/25/2025 [...] Weber M.D. 06/25/2025 12:58 PM Dictation Location: [place] [address] Electronically authenticated by: [id number] Y Date: 06/25/2025 12:58 Dictated By: Eitan Weber M.D. Signed By: 06/25/25 1301 DD/ 1258 TD/TT: Thermoscrew Operator: [facility] Radiology Study observation (narrative) [facility] XR FOOT RT MIN 3VOrdered By: Radiologist Radiology on 06-25-2025 [facility] Work Phone: XR Tibia and Fibula - right 2 Viewson 06-25-2025 [place] [address] XRay Report Signed Patient: MARY LEAL MR#: [id number] : 1970 Acct:[id number] Age/Sex: 55 / F ADM Date: 06/25/25 Loc: [facility] Attending Dr: Sade Felix D.P.M. Ordering Physician: Sade Felix D.P.M. Date of Service: 06/25/25 Procedure(s): XR tibia fibula RT 2V Accession Number(s): [id number] cc: Sade Felix D.P.M.; Isatu GÓMEZ [place] [address] Patient Name: MARY LEAL MRN: [id number] date: 1970 Sex: F Assigned Patient Location: [facility] Current Patient Location: [facility] Accession/Order Number: [id number] Exam Date: 06/25/2025 13:03 Report Date: 06/25/2025 [...] Bullard M.D. 06/25/2025 1:05 PM Dictation Location: [place] [address] Electronically authenticated by: [id number] Y Date: 06/25/2025 13:05 Dictated By: Andres Bullard D.O. Signed By: 06/25/25 1308 DD/ 04 TD/TT: Thermoscrew Operator: [facility] Radiology, Radiologist, MD - 06/25/2025 [place] [address] XRay Report Signed Patient: MARY LEAL MR#: [id number] : 1970 Acct:[id number] Age/Sex: 55 / F ADM Date: 06/25/25 Loc: RAD Attending Dr: Sade Felix D.P.M. Ordering Physician: Sade Felix D.P.M. Date of Service: 06/25/25 Procedure(s): XR tibia fibula RT 2V Accession Number(s): [id number] cc: Sade Felix D.P.M.; Isatu GÓMEZ [place] [address] Patient Name: MARY LEAL MRN: [facility]:[id number] date: 1970 Sex: F Assigned Patient Location: [facility] Current Patient Location: [facility] Accession/Order Number: [id number] Exam Date: 06/25/2025 13:03 Report Date: 06/25/2025 [...] Bullard M.D. 06/25/2025 1:05 PM Dictation Location: [employer] Electronically authenticated by: [id number] Y Date: 06/25/2025 13:05 Dictated By: Andres Bullard D.O. Signed By: 06/25/258 DD/ 04 TD/TT: Thermoscrew Operator: [facility] Radiology Study observation (narrative) [facility] XR Tibia and Fibula - right 2 ViewsOrdered By: Radiologist Radiology on 06-25-2025 [facility] [employer] Work Phone: PROTEIN ELECTROPHORESIS, URI NEon 05-14-2025 URINE PROTEIN ELECTROPHORESIS INTERP Unremarkable protein distribution, no monoclonal bands Normal [facility] Comment on above: Performed By: #### 3 5275-7, 14296-1, 8014-3, 5193-8, 6476-6 #### [facility] ([id number]) [address] [place] [address], [address] [place] [address] COPPER, Son 05-13-2025 COPPER 110 mcg/dL Normal 77-206 [facility] Comment on above: Result Comment: ADDITIONAL INFORMATION This test was developed and its performance characteristics determined by [facility] in a manner consistent with CLIA requirements. This test has not been cleared or approved by the U.S. Food and Drug Administration. Test Performed by: [facility] [address] [place] [address] Growth Hacker: Sindi Archibald Ph.D.; CLIA# [id number] Performed By: #### 3 5275-7, 20549-3, 8014-3, 5193-8, 6476-6 #### [facility] ([id number]) [address], [address] [place] [address] FOLATEon 05-13-2025 FOLIC ACID >^25.0 Normal >5.8 [facility] Comment on above: Performed By: #### F MOISES #### [facility] ([facility]) [address] [place] [address] VIR HEAVY METALS SCRN WITH DEMOG RAPHICSon 05-13-2025 ARSENIC, B <1 Normal <13 [facility] Comment on above: Result Comment: ADDITIONAL INFORMATION This test was developed and its performance characteristics determined by [facility] in a manner consistent with CLIA requirements. This test has not been cleared or approved by the U.S. Food and Drug Administration. Performed By: #### 3 5275-7, 45286-0, 8014-3, 5193-8, 6476-6 #### [facility] ([id number]) [address], [address] [place] [address] CADMIUM, B <0.2 Normal <5.0 [facility] Comment on above: Result Comment: ADDITIONAL INFORMATION This test was developed and its performance characteristics determined by [facility] in a manner consistent with CLIA requirements. This test has not been cleared or approved by the U.S. Food and Drug Administration. Performed By: #### 3 5275-7, 74366-7, 8014-3, 5193-8, 6476-6 #### [facility] ([id number]) [address], [address] [place] [address] HEAVY METAL VENOUS/CAPILLARY Venous Normal [facility] Comment on above: Performed By: #### 3 5275-7, 38873-8, 8014-3, 5193-8, 6476-6 #### [facility] ([id number]) [address], [address] [place] [address] LEAD, B <1.0 Normal <3.5 [facility] Comment on above: Result Comment: ADDITIONAL INFORMATION Testing performed by Triple Quadrupole Inductively Coupled Plasma-Mass Spectrometry (ICP-MS/MS). This test was developed and its performance characteristics determined by [facility] in a manner consistent with CLIA requirements. This test has not been cleared or approved by the U.S. Food and Drug Administration. Performed By: #### 3 5275-7, 74382-9, 8014-3, 5193-8, 6476-6 #### [facility] ([id number]) [address], [address] [place] [address] MERCURY, B <1 Normal <10 [facility] Comment on above: Result Comment: ADDITIONAL INFORMATION This test was developed and its performance characteristics determined by [facility] in a manner consistent with CLIA requirements. This test has not been cleared or approved by the U.S. Food and Drug Administration. Performed By: #### 3 5275-7, 18418-4, 8014-3, 5193-8, 6476-6 #### [facility] ([id number]) [address], [address] [place] [address] HEMOGLOBIN A1Con 05-13-2025 Glucose [Mass/Vol] 103 mg/dL Normal [facility] Comment on above: Performed By: #### H A1C #### [facility] (TT) [address] [place] [address] VIR HbA1c (Bld) [Mass fraction] 5.2 % Normal 4.4-5.6 [facility] Comment on above: Result Comment: ADA Guidelines Result HgbA1c Normal : less than 5.7 % Prediabetes : 5.7 % to 6.4 % Diabetes : > 6.4 % Use with caution in patients with abnormal hemoglobin variants as the half-life of red blood cells and in vivo glycation rates are affected. Performed By: #### H A1C #### [facility] ([facility]) [address] [place] [address] VIR PROTEIN ELECTROPHORESIS, SER UMon 05-13-2025 Albumin [Mass/Vol] 3.9 g/dL Normal 3.4-5.3 [facility] Comment on above: Performed By: #### S PE #### [facility] ([facility]) [address] [place] [address] VIR ALPHA 1 GLOBULIN 0.3 g/dL Normal 0.1-0.4 [facility] Comment on above: Performed By: #### S PE #### [facility] ([facility]) [address] [place] [address] VIR ALPHA 2 GLOBULIN 0.6 g/dL Normal 0.4-1.1 [facility] Comment on above: Performed By: #### S PE #### [facility] ([facility]) [address] [place] [address] VIR BETA GLOBULIN 0.8 g/dL Normal 0.5-1.2 [facility] Comment on above: Performed By: #### S PE #### [facility] ([facility]) [address] [place] [address] VIR GAMMA GLOBULIN 0.7 g/dL Normal 0.5-1.6 [facility] Comment on above: Performed By: #### S PE #### [facility] ([facility]) [address] [place] [address] VIR Protein [Mass/Vol] 6.2 g/dL Normal 6.0-8.0 [facility] Comment on above: Performed By: #### S PE #### [facility] ([facility]) [address] [place] [address] VIR PROTEIN ELECTROPHORESIS INTERP Unremarkable protein distribution, no monoclonal bands Normal [facility] Comment on above: Performed By: #### S PE #### [facility] ([facility]) [address] [place] [address] VIR THIAMIN (VITAMIN B1), WBon 0 05-13-2025 THIAMIN (VITAMIN B1), WB 114 nmol/L Normal 70-180 [facility] Comment on above: Result Comment: ADDITIONAL INFORMATION This test was developed and its performance characteristics determined by [facility] in a manner consistent with CLIA requirements. This test has not been cleared or approved by the U.S. Food and Drug Administration. Test Performed by: [facility] [address] [place] [address] Growth Hacker: Sindi Archibald Ph.D.; CLIA# [id number] Performed By: #### 3 5275-7, 65958-4, 8014-3, 5193-8, 6476-6 #### [facility] ([id number]) [address], [address] [place] [address] TSHon 05-13-2025 TSH 3.16 uIU/mL Normal 0.49-4.67 [facility] Comment on above: Performed By: #### T SH #### [facility] ([facility]) [address] [place] [address] VIR VITAMIN B12on 05-13-2025 Cobalamin (Vitamin B12) [Mass/Vol] 214 pg/mL Normal 180-914 [facility] Comment on above: Performed By: #### B 12 #### [facility] ([facility]) [address] [place] [address] VIR VITAMIN B6 PROFILE (PLP AND PA), Armando 05-13-2025 PYRIDOXAL 5-PHOSPHATE (PLP), P 10 mcg/L Normal 5-50 [facility] Comment on above: Result Comment: ADDITIONAL INFORMATION This test was developed and its performance characteristics determined by [facility] in a manner consistent with CLIA requirements. This test has not been cleared or approved by the U.S. Food and Drug Administration. Performed By: #### 3 5275-7, 89769-0, 8014-3, 5193-8, 6476-6 #### [facility] ([id number]) [address] [place] [address], [address] [place] [address] PYRIDOXIC ACID (PA), P 6 mcg/L Normal 3-30 [facility] Comment on above: Result Comment: ADDITIONAL INFORMATION This test was developed and its performance characteristics determined by [facility] in a manner consistent with CLIA requirements. This test has not been cleared or approved by the U.S. Food and Drug Administration. Test Performed by: [place] [address] Growth Hacker: Sindi Archibald Ph.D.; CLIA# [id number] Performed By: #### 3 5275-7, 29644-4, 8014-3, 5193-8, 6476-6 #### [facility] ([id number]) [address] [place] [address] Magnetic resonance imaging r eportOrdered By: Eitan Weber on 02-25-[address] [facility] [address] [address] MRI Report Signed Patient: Mary Leal MR#: [id number] : 1970 Acct:[id number] Age/Sex: 54 / F ADM Date: 5 Loc: [facility] Room: Type: [facility] Attending Dr: Monica IBARRA Copies to: FRED Schafer~ Ordering Provider: FRED Schafer Date of Service: 02/25/25 MR/MR thoracic spine wo con: THORACIC RADICULOPATHY ([id number]) XR/XR pre/post mri xray: THOARCIC RADICULOPATHY MRI [...] Eitan Weber M.D.02/25/2025 10:14 AM Dictation Location: [place] [address] Transcribed By: [facility] 02/25/25 1014 Dictated By: Eitan Weber MD 02/25/25 1008 Signed By: 02/25/25 1014 [facility] Work Phone: XR pre/post mri xrayon 02-25 XR pre/post mri xray [facility] [address] [place] [address] [place] [address] MRI Report Signed Patient: Mary Leal MR#: [id number] : 1970 Acct:[id number] Age/Sex: 54 / F ADM Date: 02/25/25 Loc: [facility] Room: Type: [facility] Attending Dr: Monica IBARRA Copies to: FRED Schafer Ordering Provider: FRED Schafer Date of Service: 02/25/25 MR/MR thoracic spine wo con: THORACIC RADICULOPATHY ([id number]) XR/XR pre/post mri xray: THOARCIC RADICULOPATHY MRI [...] Eitan Weber M.D.02/25/2025 10:14 AM Dictation Location: [place] [address] Transcribed By: [facility] 02/25/25 1014 Dictated By: Eitan Weber MD 02/25/25 1008 Signed By: 02/25/[address] [facility] Alanine aminotransferase [En zymatic activity/volume] in Serum or PlasmaOrdered By: Everett Valdez on 02-17-2025 ALT [Catalytic activity/Vol] Alanine aminotransferase [Enzymatic activity/volume] in Serum or Plasma [facility] ALT [Catalytic activity/Vol] 38 U/L Normal [facility] Comment on above: Performed By: #### C BC #### [facility] [address] Albumin [Mass/volume] in Ser um or Plasma by Bromocresol green (BCG) dye binding methoOrdered By: Everett Valdez on 02-17-2025 Albumin BCG dye [Mass/Vol] Albumin [Mass/volume] in Serum or Plasma by Bromocresol green (BCG) dye binding metho 3.5-5.7 [facility] Albumin BCG dye [Mass/Vol] 4.2 g/dL 3.5-5.7 [facility] Alkaline phosphatase [Enzyma tic activity/volume] in Serum or PlasmaOrdered By: Everett Valdez on 02-17-2025 ALP [Catalytic activity/Vol] Alkaline phosphatase [Enzymatic activity/volume] in Serum or Plasma 34-104 [facility] ALP [Catalytic activity/Vol] 96 U/L Normal 34-104 [facility] Comment on above: Performed By: #### C BC #### [address] Aspartate aminotransferase [ Enzymatic activity/volume] in Serum or PlasmaOrdered By: Everett Valdez on 02-17-2025 AST [Catalytic activity/Vol] Aspartate aminotransferase [Enzymatic activity/volume] in Serum or Plasma 13-39 [facility] AST [Catalytic activity/Vol] 34 U/L Normal 13-39 [facility] Comment on above: Performed By: #### C BC #### [place] [address] [place] Basophils Auto (Bld) [#/Vol] Ordered By: Everett Valdez on 02-17-2025 Basophils (Bld) [#/Vol] Automated basophil count 0.0-0.2 [facility] Basophils [#/volume] in Bloo d by Automated countOrdered By: Everett Valdez on 02-17-2025 Basophils (Bld) [#/Vol] 0.0 10*3/uL Normal 0.0-0.2 [facility] Comment on above: Performed By: #### C BC #### [place] [address] [place] Basophils/100 WBC Auto (Bld) Ordered By: Everett Valdez on 02-17-2025 Basophils/100 WBC (Bld) Automated basophil % . [facility] Basophils/100 leukocytes in Blood by Automated countOrdered By: Everett Valdez on 02-17-2025 Basophils/100 WBC (Bld) 0.7 % Normal . [facility] Comment on above: Performed By: #### C BC #### [facility] [address] Bilirubin.total [Mass/volume ] in Serum or PlasmaOrdered By: Everett Valdez on 02-17-2025 Bilirubin [Mass/Vol] Bilirubin.total [Mass/volume] in Serum or Plasma 0.3-1.0 [facility] Bilirubin [Mass/Vol] 0.3 mg/dL Normal 0.3-1.0 [facility] Comment on above: Performed By: #### C BC #### [facility] [address] [place] [address] [place] C reactive protein [Mass/vol ume] in Serum or PlasmaOrdered By: Everett Valdez on 02-17-2025 CRP [Mass/Vol] C reactive protein [Mass/volume] in Serum or Plasma 0.0-0.5 [facility] CRP [Mass/Vol] < 0.5 mg/dL 0.0-0.5 [facility] C-Reactive Proteinon 025 CRP [Mass/Vol] mg/L Normal 0.0-0.5 [facility] Comment on above: Result Comment: PERF ORMED BY: [address] [place] [address] PATHOLOGIST [employer] PAZ GUILLERMO M.D. Performed By: #### C BC #### [facility] [address] [place] [address] [place] Calcium [Mass/volume] in Ser um or PlasmaOrdered By: Everett Valdez on 02-17-2025 Calcium [Mass/Vol] Calcium [Mass/volume ] in Serum or Plasma 8.6-10.3 [facility] Calcium [Mass/Vol] 8.9 mg/dL Normal 8.6-10.3 [facility] Comment on above: Performed By: #### C BC #### [address] Carbon dioxide, total [Moles /volume] in Serum or PlasmaOrdered By: Everett Valdez on 02-17-2025 CO2 [Moles/Vol] Carbon dioxide, tota l [Moles/volume] in Serum or Plasma 21.0-31.0 [facility] CO2 [Moles/Vol] 30.2 mmol/L Normal 21.0-31.0 [facility] Comment on above: Performed By: #### C BC #### [address] Chloride [Moles/volume] in S jay or PlasmaOrdered By: Everett Valdez on 02-17-2025 Chloride [Moles/Vol] Chloride [Moles/volume] in Serum or Plasma 98-107 [facility] Chloride [Moles/Vol] 104 mmol/L Normal 98-107 [facility] Comment on above: Performed By: #### C BC #### [address] Complete Blood Count Auto Di ffon 02-17-2025 Mean Corpuscular HGB Conc 34.0 g/dL Normal 32.0-35.[address] [facility] Comment on above: Performed By: #### C BC #### [address] NRBC% 0.1 /100{WBC} Normal 0-0.5 [facility] Comment on above: Performed By: #### C BC #### [address] Comprehensive Metabolic Pane angella 02-17-2025 Albumin [Mass/Vol] 4.2 g/dL Normal 3.5-5.7 [facility] Comment on above: Performed By: #### C BC #### [place] [address] [place] GFR/1.73 sq M.predicted MDRD (S/P/Bld) [Vol rate/Area] mL/min/{1.73_m2} Normal [facility] Comment on above: Performed By: #### C BC #### [facility] [address] [place] [address] Creatine kinase [Enzymatic a ctivity/volume] in Serum or PlasmaOrdered By: Everett Valdez on 02-17-2025 CK [Catalytic activity/Vol] Creatine kinase [Enzymatic activity/volume] in Serum or Plasma High 30-223 [facility] CK [Catalytic activity/Vol] 539 U/L High 30-223 [facility] Comment on above: Result Comment: PERF ORMED BY: [place] [address] [employer] PAZ GUILLERMO M.D. Performed By: #### C BC #### [address] Creatinine [Mass/volume] in Serum or PlasmaOrdered By: Everett Valdez on 02-17-2025 Creatinine [Mass/Vol] Creatinine [Mass/volume] in Serum or Plasma 0.60-1.20 [facility] Creatinine [Mass/Vol] 0.61 mg/dL Normal 0.60-1.20 [facility] Comment on above: Performed By: #### C BC #### [place] [address] [place] Eosinophils Auto (Bld) [#/Vo l]Ordered By: Everett Valdez on 02-17-2025 Eosinophils (Bld) [#/Vol] Automated eosinophil count 0.0-0.45 [facility] Eosinophils [#/volume] in Bl ood by Automated countOrdered By: Everett Valdez on 02-17-2025 Eosinophils (Bld) [#/Vol] 0.1 10*3/uL Normal 0.0-0.45 [facility] Comment on above: Performed By: #### C BC #### [place] [address] [place] Eosinophils/100 WBC Auto (Bl d)Ordered By: Everett Valdez on 02-17-2025 Eosinophils/100 WBC (Bld) Automated eosinophil % . [facility] Eosinophils/100 leukocytes i n Blood by Automated countOrdered By: Everett Valdez on 02-17-2025 Eosinophils/100 WBC (Bld) 1.9 % Normal . [facility] Comment on above: Performed By: #### C BC #### [address] Erythrocyte Sedimentation Ra lian 02-17-2025 ESR (Bld) [Velocity] 4 mm/h Normal 0-[address] [facility] Comment on above: Result Comment: PERF ORMED BY: [place] [address] [employer] PAZ GUILLERMO M.D. Performed By: #### B MP #### [address] Erythrocyte distribution wid th Auto (RBC) [Ratio]Ordered By: Everett Valdez on 02-17-2025 Erythrocyte distribution width (RBC) [Ratio] Erythrocyte distribution width [Ratio] by Automated count 11.9-15.3 [facility] Erythrocyte distribution wid th [Ratio] by Automated countOrdered By: Everett Valdez on 02-17-2025 Erythrocyte distribution width (RBC) [Ratio] 13.6 % Normal 11.9-15.3 [facility] Comment on above: Performed By: #### C BC #### [address] Erythrocyte sedimentation ra te by Photometric methodOrdered By: Everett Valdez on 02-17-2025 ESR Photometric method (Bld) [Velocity] Erythrocyte sedimentation rate by Photometric method 0-29 [facility] ESR Photometric method (Bld) [Velocity] 4 mm/hr 0-29 [facility] Erythrocytes [#/volume] in B lood by Automated countOrdered By: Everett Valdez on 02-17-2025 RBC (Bld) [#/Vol] 4.93 10*6/uL Normal 3.60-5.00 [facility] Comment on above: Performed By: #### C BC #### [place] [address] [place] Globulin Calc (S) [Mass/Vol] Ordered By: Everett Valdez on 02-17-2025 Globulin (S) [Mass/Vol] Serum globulin measurement by calculation (mass/volume) [facility] Glucose [Mass/volume] in Ser um or PlasmaOrdered By: Everett Valdez on 02-17-2025 Glucose [Mass/Vol] Glucose [Mass/volume ] in Serum or Plasma 70-100 [facility] Comment on above: ADA recommended refe rence rangeRandom Glucose Reference Range is dependent on time and content of last meal. Glucose of more than 200 mg/dL in a nonstressed, ambulatory subject supports the diagnosis of Diabetes Mellitus. Glucose [Mass/Vol] 94 mg/dL Normal 70-100 [facility] Comment on above: ADA recommended refe rence rangeRandom Glucose Reference Range is dependent on time and content of last meal. Glucose of more than 200 mg/dL in a nonstressed, ambulatory subject supports the diagnosis of Diabetes Mellitus. Result Comment: [place] Glucose Reference Range is dependent on time and content of last meal. Glucose of more than 200 mg/dL in a nonstressed, ambulatory subject supports the diagnosis of Diabetes Mellitus. ADA recommended reference range Performed By: #### C BC #### [facility] [address] [place] [address] Hematocrit Auto (Bld) [Volum e fraction]Ordered By: Everett Valdez on 02-17-2025 Hematocrit (Bld) [Volume fraction] Hematocrit [Volume Fraction] of Blood by Automated count 34.0-46.4 [facility] Hematocrit [Volume Fraction] of Blood by Automated countOrdered By: Everett Valdez on 02-17-2025 Hematocrit (Bld) [Volume fraction] 41.0 % Normal 34.0-46.4 [facility] Comment on above: Performed By: #### C BC #### [facility] [address] [place] [address] Hemoglobin [Mass/volume] in BloodOrdered By: Everett Valdez on 02-17-2025 Hemoglobin (Bld) [Mass/Vol] Hemoglobin [Mass/volume] in Blood 11.8-15.4 [facility] Hemoglobin (Bld) [Mass/Vol] 14.0 g/dL Normal 11.8-15.4 [facility] Comment on above: Performed By: #### C BC #### [facility] [address] LDH Lactate Dehydrogenaseon 02-17-2025 LDH Lactate Dehydrogenase 219 U/L Normal 140-[address] [facility] Comment on above: Performed By: #### C BC #### [facility] [address] [place] [id number] [place] Lactate dehydrogenase [Enzym atic activity/volume] in Serum or Plasma by Lactate to pyOrdered By: Everett Valdez on 02-17-2025 LDH Lactate to pyruvate reaction [Catalytic activity/Vol] Lactate dehydrogenase [Enzymatic activity/volume] in Serum or Plasma by Lactate to py 140-271 [facility] LDH Lactate to pyruvate reaction [Catalytic activity/Vol] 219 U/L 140-271 [facility] Leukocytes [#/volume] correc herbert for nucleated erythrocytes in Blood by Automated counOrdered By: Everett Valdez on 02-17-2025 WBC corrected for nucl RBC Auto (Bld) [#/Vol] Leukocytes [#/volume] corrected for nucleated erythrocytes in Blood by Automated coun 3.8-11.6 [facility] WBC corrected for nucl RBC Auto (Bld) [#/Vol] 4.9 10*3/uL 3.8-11.6 [facility] Leukocytes [#/volume] in Blo od by Automated countOrdered By: Everett Valdez on 02-17-2025 WBC (Bld) [#/Vol] 4.9 10*3/uL Normal 3.8-11.6 [facility] Comment on above: Performed By: #### C BC #### [facility] [address] [place] [address] [place] Lymphocytes Auto (Bld) [#/Vo l]Ordered By: Everett Valdez on 02-17-2025 Lymphocytes (Bld) [#/Vol] Lymphocytes [#/volume] in Blood by Automated count 1.00-4.8 [facility] Lymphocytes [#/volume] in Bl ood by Automated countOrdered By: Everett Valdez on 02-17-2025 Lymphocytes (Bld) [#/Vol] 1.4 10*3/uL Normal 1.00-4.8 [facility] Comment on above: Performed By: #### C BC #### [facility] [address] [place] [address] Lymphocytes/100 WBC Auto (Bl d)Ordered By: Everett Valdez on 02-17-2025 Lymphocytes/100 WBC (Bld) Lymphocytes/100 leukocytes in Blood by Automated count . [facility] Lymphocytes/100 leukocytes i n Blood by Automated countOrdered By: Everett Valdez on 02-17-2025 Lymphocytes/100 WBC (Bld) 29.2 % Normal . [facility] Comment on above: Performed By: #### C BC #### [facility] [address] [place] [address] MCH Auto (RBC) [Entitic mass ]Ordered By: Everett Valdez on 02-17-2025 MCH (RBC) [Entitic mass] MCH [Entitic mass] by Automated count 24.7-34.3 [facility] MCH [Entitic mass] by Automa herbert countOrdered By: Everett Valdez on 02-17-2025 MCH (RBC) [Entitic mass] 28.3 pg Normal 24.7-34.3 [facility] Comment on above: Performed By: #### C BC #### [address] MCHC Auto (RBC) [Mass/Vol]Or dered By: Everett Valdez on 02-17-2025 MCHC (RBC) [Mass/Vol] MCHC [Mass/volume] by Automated count 32.0-35.0 [facility] MCHC (RBC) [Mass/Vol] 34.0 g/dL 32.0-35.0 [facility] MCV Auto (RBC) [Entitic vol] Ordered By: Everett Valdez on 02-17-2025 MCV (RBC) [Entitic vol] MCV [Entitic volume] by Automated count 80-100 [facility] MCV [Entitic volume] by Auto mated countOrdered By: Everett Valdez on 02-17-2025 MCV (RBC) [Entitic vol] 83.3 fL Normal 80-100 [facility] Comment on above: Performed By: #### C BC #### [address] Monocytes Auto (Bld) [#/Vol] Ordered By: Everett Valdez on 02-17-2025 Monocytes (Bld) [#/Vol] Automated blood monocyte count 0.0-0.8 [facility] Monocytes [#/volume] in Bloo d by Automated countOrdered By: Everett Valdez on 02-17-2025 Monocytes (Bld) [#/Vol] 0.2 10*3/uL Normal 0.0-0.8 [facility] Comment on above: Performed By: #### C BC #### [address] Monocytes/100 WBC Auto (Bld) Ordered By: Everett Valdez on 02-17-2025 Monocytes/100 WBC (Bld) Automated monocyte % . [facility] Monocytes/100 leukocytes in Blood by Automated countOrdered By: Everett Valdez on 02-17-2025 Monocytes/100 WBC (Bld) 5.0 % Normal . [facility] Comment on above: Performed By: #### C BC #### [address] Neutrophils Auto (Bld) [#/Vo l]Ordered By: Everett Valdez on 02-17-2025 Neutrophils (Bld) [#/Vol] Neutrophils [#/volume] in Blood by Automated count 1.8-7.7 [facility] Neutrophils [#/volume] in Bl ood by Automated countOrdered By: Everett Valdez on 02-17-2025 Neutrophils (Bld) [#/Vol] 3.1 10*3/uL Normal 1.8-7.7 [facility] Comment on above: Performed By: #### C BC #### [place] [address] [place] Neutrophils/100 WBC Auto (Bl d)Ordered By: Everett Valdez on 02-17-2025 Neutrophils/100 WBC (Bld) Automated neutrophil % . [facility] Neutrophils/100 leukocytes i n Blood by Automated countOrdered By: Everett Terryrow on 02-17-2025 Neutrophils/100 WBC (Bld) 63.2 % Normal . [facility] Comment on above: Performed By: #### C BC #### [facility] [address] [place] [address] No Panel InformationOrdered By: Everett Courtney on 02-17-2025 Estimated GFR (CKD-EPI) > 60.0 mL/Min [facility] Creatinine Clearance (Chem N/A [facility] Nucleated erythrocytes [Pres ence] in Blood by Automated countOrdered By: Everett Courtney on 02-17-2025 Nucleated RBC Auto Ql (Bld) Nucleated erythrocytes [Presence] in Blood by Automated count 0-0.5 [facility] Nucleated RBC Auto Ql (Bld) 0.1 /100{WBC} 0-0.5 [facility] Platelet mean volume Auto (B ld) [Entitic vol]Ordered By: Everett Valdez on 02-17-2025 Platelet mean volume (Bld) [Entitic vol] Platelet mean volume [Entitic volume] in Blood by Automated count 6.3-10.7 [facility] Platelet mean volume [Entiti c volume] in Blood by Automated countOrdered By: Everett Courtney on 02-17-2025 Platelet mean volume (Bld) [Entitic vol] 7.6 fL Normal 6.3-10.7 [facility] Comment on above: Performed By: #### C BC #### [facility] [address] [place] [address] Platelets Auto (Bld) [#/Vol] Ordered By: Everett Valdez on 02-17-2025 Platelets (Bld) [#/Vol] Platelets [#/volume] in Blood by Automated count 150-450 [facility] Platelets [#/volume] in Bloo d by Automated countOrdered By: Everett Valdez on 02-17-2025 Platelets (Bld) [#/Vol] 312 10*3/uL Normal 150-450 [facility] Comment on above: Performed By: #### C BC #### [facility] [address] [place] [address] Potassium [Moles/volume] in Serum or PlasmaOrdered By: Everett Valdez on 02-17-2025 Potassium [Moles/Vol] Potassium [Moles/volume] in Serum or Plasma 3.5-5.1 [facility] Potassium [Moles/Vol] 4.6 mmol/L Normal 3.5-5.1 [facility] Comment on above: Performed By: #### C BC #### [address] Protein [Mass/volume] in Ser um or PlasmaOrdered By: Everett Valdez on 02-17-2025 Protein [Mass/Vol] Protein [Mass/volume ] in Serum or Plasma Low 6.4-8.9 [facility] Protein [Mass/Vol] 6.3 g/dL Low 6.4-8.9 [facility] Comment on above: Performed By: #### C BC #### [address] RBC Auto (Bld) [#/Vol]Ordere d By: Everett Valdez on 02-17-2025 RBC (Bld) [#/Vol] Erythrocytes [#/volume] in Blood by Automated count 3.60-5.00 [facility] Serum aldolase measurementOr dered By: Everett Valdez on 02-17-2025 Aldolase 11.4 U/L High 3.3-10.3 [facility] Comment on above: Performed at: CB [facility] [place] [id number] Director: Erick Neville PhD, Phone: [phone] Result Comment: Perf ormed at: CB - [facility] [place] [address] Growth Hacker: Erick Neville PhD, Phone: [phone] PERFORMED BY: [place] [address] PATH[employer] PAZ GUILLERMO M.D. Performed By: #### B MP #### [place] [address] [place] Serum globulin measurement b y calculation (mass/volume)Ordered By: Everett Valdez on 02-17-2025 Globulin (S) [Mass/Vol] 2.1 g/dL [facility] Comment on above: Performed By: #### C BC #### [facility] [address] [place] [address] Serum or plasma albumin/glob ulin mass ratioOrdered By: Everett Valdez on 02-17-2025 Albumin/Globulin [Mass ratio] Serum or plasma albumin/globulin mass ratio [facility] Albumin/Globulin [Mass ratio] 2.0 {ratio} [facility] Comment on above: Performed By: #### C BC #### [facility] [address] [place] [address] Serum or plasma anion gap de terminationOrdered By: Everett Valdez on 02-17-2025 Anion gap [Moles/Vol] Serum or plasma an ion gap determination 6.0-15.0 [facility] Anion gap [Moles/Vol] 9.4 mmol/L Normal 6.0-15.0 [facility] Comment on above: Performed By: #### C BC #### [facility] [address] [place] [address] Serum or plasma myoglobin me asurement (mass/volume)Ordered By: Everett Valdez on 02-17-2025 Myoglobin [Mass/Vol] Serum or plasma myoglobin measurement (mass/volume) [address] Comment on above: Performed at: [facility] [place] [id number] Director: Erick Neville PhD, Phone: [phone] Myoglobin [Mass/Vol] 187 ng/mL [address] Comment on above: Performed at: [facility] [address] [id number] Director: Eirck Neville PhD, Phone: [phone] Result Comment: Perf ormed at: [facility] [place] [address] Growth Hacker: Erick Neville PhD, Phone: [phone] PERFORMED BY: [place] [address] PATH[employer] PAZ GUILLERMO M.D. Performed By: #### B MP #### [address] Sodium [Moles/volume] in Ser um or PlasmaOrdered By: Everett Valdez on 02-17-2025 Sodium [Moles/Vol] Sodium [Moles/volume ] in Serum or Plasma 136-145 [facility] Sodium [Moles/Vol] 139 mmol/L Normal 136-145 [facility] Comment on above: Performed By: #### C BC #### [address] Urea nitrogen [Mass/volume] in Serum or PlasmaOrdered By: Everett Valdez on 02-17-2025 Urea nitrogen [Mass/Vol] Urea nitrogen [Mass/volume] in Serum or Plasma 05-30 [facility] Urea nitrogen [Mass/Vol] 19 mg/dL Normal 05-30 [facility] Comment on above: Performed By: #### C BC #### [address] WBC Auto (Bld) [#/Vol]Ordere d By: Everett Valdez on 02-17-2025 WBC (Bld) [#/Vol] Leukocytes [#/volume ] in Blood by Automated count 3.8-11.6 [facility] 36on 01-24-2025 36 Attempted to call patient to reschedule canceled [facility] follow up appointment. Normal [facility] XR FOOT RT MIN 3Von 01-03-20 25 [facility] [address] [place] [id number] XRay Report Signed Patient: MARY LEAL MR#: [id number] : 1970 Acct:[id number] Age/Sex: 54 / F ADM Date: 01/03/25 Loc: EC Attending Dr: Sade Felix D.P.M. Ordering Physician: Sade Felix D.P.M. Date of Service: 01/03/25 Procedure(s): XR foot RT min 3V Accession Number(s): [id number] cc: Sade Felix D.P.M.; Isatu GÓMEZ The [place] [id number] Patient Name: MARY LEAL MRN: [facility]:[id number] date: 1970 Sex: F Assigned Patient Location: EC Current Patient Location: EC Accession/Order Number: [id number] Exam Date: 01/03/2025 12:17 Report Date: 01/03/2025 [...] Makenna Pathak M.D.01/03/2025 12:21 PM Dictation Location: [place] [address] Electronically authenticated by: [id number] Y Date: 01/03/2025 12:21 Dictated By: Makenna Pathak M.D. Signed By: 01/03/25 1223 DD/ 1221 TD/TT: Thermoscrew Operator: [facility] Radiology, Radiologist, MD - 01/03/[address] [address] XRay Report Signed Patient: MARY LEAL MR#: [id number] : 1970 Acct:[id number] Age/Sex: 54 / F ADM Date: 01/03/25 Loc: EC Attending Dr: Sade Felix D.P.M. Ordering Physician: Sade Felix D.P.M. Date of Service: 01/03/25 Procedure(s): XR foot RT min 3V Accession Number(s): [id number] cc: Sade Felix D.P.M.; Isatu GÓMEZ [place] [address] Patient Name: MARY LEAL MRN: [facility]:[id number] date: 1970 Sex: F Assigned Patient Location: Current Patient Location: Accession/Order Number: [id number] Exam Date: 01/03/2025 12:17 Report Date: 01/03/2025 [...] Makenna Pathak M.D.01/03/2025 12:21 PM Dictation Location: [place] [address] Electronically authenticated by: [id number] Y Date: 01/03/2025 12:21 Dictated By: Makenna Pathak M.D. Signed By: 01/03/25 1223 DD/ 1221 TD/TT: Thermoscrew Operator: [facility] Radiology Study observation (narrative) [facility] XR FOOT RT MIN 3VOrdered By: Radiologist Radiology on 01-03-2025 [facility] Work Phone: 24 hour urine albumin/total protein ratio by electrophoresisOrdered By: Everett Valdez on 12-16-2024 Albumin Elph (24H U) [Mass fraction] Albumin/Protein.total in 24 hour Urine by Electrophoresis . [facility] 24 hour urine gamma globulin /total protein ratio by electrophoresisOrdered By: Everett Valdez on 12-16-2024 Gamma globulin Elph (24H U) [Mass fraction] Gamma globulin/Protein.total in 24 hour Urine by Electrophoresis . [facility] 24 hour urine protein monocl onal/total protein by electrophoresisOrdered By: Everett Valdez on 12-16-2024 Protein.monoclonal Elph (24H U) [Mass fraction] Protein.monoclonal/Pro tein.total in 24 hour Urine by Electrophoresis Not Observed [facility] [place] Antinuclear Antibodieson 12-16-2024 Antinuclear Abs, IFA Negative Normal . [facility] Comment on above: Result Comment: Nega tive <1:80 Borderline 1:80 Positive >1:80 ICAP nomenclature: AC-0 For more information about Hep-2 cell patterns use ANApatterns.org, the official website for the International Consensus on Antinuclear Antibody ([place]YITA) Patterns (ICAP). Performed at: [facility] [place] [id number] Growth Hacker: Erick Neville PhD, Phone: [phone] Performed By: #### P P #### [place] [address] [place] #### LUPANTCOAG #### [facility] , Alanine aminotransferase [En zymatic activity/volume] in Serum or PlasmaOrdered By: Everett Valdez on 12-16-2024 ALT [Catalytic activity/Vol] Alanine aminotransferase [Enzymatic activity/volume] in Serum or Plasma 752 [facility] Albumin [Mass/volume] in Ser um or Plasma by Bromocresol green (BCG) dye binding methoOrdered By: Everett Valdez on 12-16-2024 Albumin BCG dye [Mass/Vol] Albumin [Mass/volume] in Serum or Plasma by Bromocresol green (BCG) dye binding metho 3.5-5.7 [facility] Alkaline phosphatase [Enzyma tic activity/volume] in Serum or PlasmaOrdered By: Everett Valdez on 12-16-2024 ALP [Catalytic activity/Vol] Alkaline phosphatase [Enzymatic activity/volume] in Serum or Plasma 34-104 [facility] Antithyroglobulin Abon 12-16 Antithyroglobulin Ab <1.0 Normal 0.0-0.[address] [facility] Comment on above: Result Comment: Thyr oglobulin Antibody measured by [employer] It should be noted that the presence of thyroglobulin antibodies may not be pathogenic nor diagnostic, especially at very low levels. The assay billing spec has found that four percent of individuals without evidence of thyroid disease or autoimmunity will have positive TgAb levels up to 4 IU/mL. Performed at: [facility] [id number] Growth Hacker: Erick Neville PhD, Phone: [phone] Performed By: #### C BC #### [address] Appearance of UrineOrdered B y: Everett Valdez on 12-16-2024 Appearance (U) Urine appearance Clear [facility] Aspartate aminotransferase [ Enzymatic activity/volume] in Serum or PlasmaOrdered By: Everett Valdez on 12-16-2024 AST [Catalytic activity/Vol] Aspartate aminotransferase [Enzymatic activity/volume] in Serum or Plasma 13-39 [facility] Bacteria [Presence] in Urine by AutomatedOrdered By: Everett Valdez on 12-16-2024 Bacteria Auto Ql (U) Bacteria [Presence] in Urine by Automated None Seen [facility] Basophils Auto (Bld) [#/Vol] Ordered By: Everett Valdez on 12-16-2024 Basophils (Bld) [#/Vol] Automated basophil count 0.0-0.2 [facility] Basophils/100 WBC Auto (Bld) Ordered By: Everett Valdez on 12-16-2024 Basophils/100 WBC (Bld) Automated basophil % . [facility] Bilirubin Test strip Ql (U)O rdered By: Everett Valdez on 12-16-2024 Bilirubin Ql (U) Bilirubin.total [Presence] in Urine by Test strip Negative [facility] Bilirubin.total [Mass/volume ] in Serum or PlasmaOrdered By: Everett Valdez on 12-16-2024 Bilirubin [Mass/Vol] Bilirubin.total [Mass/volume] in Serum or Plasma 0.3-1.0 [facility] C reactive protein [Mass/vol ume] in Serum or PlasmaOrdered By: Everett Valdez on 12-16-2024 CRP [Mass/Vol] C reactive protein [Mass/volume] in Serum or Plasma 0.0-0.5 [facility] C-Reactive Proteinon 025 CRP [Mass/Vol] mg/L Normal 0.0-0.5 [facility] Comment on above: Performed By: #### E SR, TSH3, CK, ADDONUAPLUS, CBC, CRP, CMP, T4F #### [facility] [address] [place] [address] #### RPR W RFX, ALDOLASE, GUZMAN,URINE, UPE RAND #### [facility] , Calcium [Mass/volume] in Ser um or PlasmaOrdered By: Everett Valdez on 12-16-2024 Calcium [Mass/Vol] Calcium [Mass/volume ] in Serum or Plasma 8.6-10.3 [facility] Carbon dioxide, total [Moles /volume] in Serum or PlasmaOrdered By: Everett Valdez on 12-16-2024 CO2 [Moles/Vol] Carbon dioxide, tota l [Moles/volume] in Serum or Plasma 21.0-31.0 [facility] Chloride [Moles/volume] in S jay or PlasmaOrdered By: Everett Valdez on 12-16-2024 Chloride [Moles/Vol] Chloride [Moles/volume] in Serum or Plasma 98-107 [facility] Chromatin Antibodyon 025 Chromatin Antibody <0.2 Normal 0.0-0.9 [facility] Comment on above: Result Comment: Perf ormed at: CB - [facility] [address] [id number] Growth Hacker: Erick Neville PhD, Phone: [phone] PERFORMED BY: [place] [address] PATHOLOG[employer] PAZ GUILLERMO M.D. Performed By: #### C BC #### [address] Coagulation Profileon 2024 aPTT Coag (Bld) [Time] 28.7 s Normal 25.1-36.[address] [facility] Group Comment on above: Result Comment: A he matocrit value greater than 55% may lead to inaccurate results in coagulation testing. Patients having hematocrit values >55% require a special collection tube for coagulation studies. Please contact the laboratory at [phone] for redraw instructions. PERFORMED BY: [place] [address] [employer] PAZ GUILLERMO M.D. Performed By: #### P P #### [address] #### LUPANTCOAG #### [facility] , INR Coag (PPP) [Relative time] 0.9 {INR} Normal [facility] Comment on above: Result [...] 4.5 Performed By: #### P P #### [address] #### LUPANTCOAG #### [facility] , PT Coag (PPP) [Time] 10.5 s Normal 9.0-12.[address] [facility] Comment on above: Result Comment: A he matocrit value greater than 55% may lead to inaccurate results in coagulation testing. Patients having hematocrit values >55% require a special collection tube for coagulation studies. Please contact the laboratory at [phone] for redraw instructions. Performed By: #### P P #### [place] [address] [place] #### LUPANTCOAG #### [facility] , Color Auto (U)Ordered By: Dori mariama Valdez on 12-16-2024 Color (U) Color of Urine by Auto Yellow [facility] Complement C3on 12-16-2024 Complement C3 133 mg/dL Normal 82-167 [facility] Comment on above: Result Comment: Perf ormed at: [address] [id number] [employer] H[employer]: Erick Neville PhD, Phone: [phone] Performed By: #### C BC #### [address] Complement C4on 12-16-2024 Complement C4 26 mg/dL Normal 12-38 [facility] Comment on above: Performed By: #### C BC #### [address] Complement Total (CH50)on Complement Total (CH50) >60 Normal >[address] [facility] Comment on above: Result [...] determine out of range values. Performed at: [address] [id number] Growth Hacker: Erick Neville PhD, Phone: [phone] PERFORMED BY: [place] [address] PATH[employer] PAZ GUILLERMO M.D. Performed By: #### P P #### [address] #### LUPANTCOAG #### [facility] , Complete Blood Count Auto Di ffon 12-16-2024 Basophils (Bld) [#/Vol] 0.0 10*3/uL Normal 0.0-0.[address] [facility] Comment on above: Performed By: #### P P #### [place] [address] [place] #### LUPANTCOAG #### [facility] , Basophils/100 WBC (Bld) 0.7 % Normal . [facility] Comment on above: Performed By: #### P P #### [place] [address] [place] #### LUPANTCOAG #### [facility] , Eosinophils (Bld) [#/Vol] 0.1 10*3/uL Normal 0.0-0.[address] [facility] Comment on above: Performed By: #### P P #### [address] #### LUPANTCOAG #### [facility] , Eosinophils/100 WBC (Bld) 2.3 % Normal . [facility] Comment on above: Performed By: #### P P #### [place] [address] [place] #### LUPANTCOAG #### [facility] , Erythrocyte distribution width (RBC) [Ratio] 12.8 % Normal 11.9-15.[address] [facility] Comment on above: Performed By: #### P P #### [place] [address] [place] #### LUPANTCOAG #### [facility] , Hematocrit (Bld) [Volume fraction] 39.6 % Normal 34.0-46.[address] [facility] Comment on above: Performed By: #### P P #### [place] [address] [place] #### LUPANTCOAG #### [facility] , Hemoglobin (Bld) [Mass/Vol] 13.3 g/dL Normal 11.8-15.[address] [facility] Comment on above: Performed By: #### P P #### [address] #### LUPANTCOAG #### [facility] , Lymphocytes (Bld) [#/Vol] 1.8 10*3/uL Normal 1.00-4.[address] [facility] Comment on above: Performed By: #### P P #### [place] [address] [place] #### LUPANTCOAG #### [facility] , Lymphocytes/100 WBC (Bld) 32.0 % Normal . [facility] Comment on above: Performed By: #### P P #### [address] #### LUPANTCOAG #### [facility] , MCH (RBC) [Entitic mass] 28.4 pg Normal 24.7-34.[address] [facility] Comment on above: Performed By: #### P P #### [address] #### LUPANTCOAG #### [facility] , MCV (RBC) [Entitic vol] 84.6 fL Normal 80-[address] [facility] Comment on above: Performed By: #### P P #### [address] #### LUPANTCOAG #### [facility] , Mean Corpuscular HGB Conc 33.6 g/dL Normal 32.0-35.[address] [facility] Comment on above: Performed By: #### P P #### [place] [address] [place] #### LUPANTCOAG #### [facility] , Monocytes (Bld) [#/Vol] 0.3 10*3/uL Normal 0.0-0.[address] [facility] Comment on above: Performed By: #### P P #### [place] [address] [place] #### LUPANTCOAG #### [facility] , Monocytes/100 WBC (Bld) 5.1 % Normal . [facility] Comment on above: Performed By: #### P P #### [address] #### LUPANTCOAG #### [facility] , Neutrophils (Bld) [#/Vol] 3.3 10*3/uL Normal 1.8-7.[address] [facility] Comment on above: Performed By: #### P P #### [place] [address] [place] #### LUPANTCOAG #### [facility] , Neutrophils/100 WBC (Bld) 59.9 % Normal . [facility] Comment on above: Performed By: #### P P #### [address] #### LUPANTCOAG #### [facility] , NRBC% 0.1 /100{WBC} Normal 0-0.5 [facility] Comment on above: Performed By: #### P P #### [place] [address] [place] #### LUPANTCOAG #### [facility] , Platelet mean volume (Bld) [Entitic vol] 7.5 fL Normal 6.3-10.7 [facility] Comment on above: Performed By: #### P P #### [place] [address] [place] #### LUPANTCOAG #### [facility] , Platelets (Bld) [#/Vol] 347 10*3/uL Normal 150-[address] [facility] Comment on above: Performed By: #### P P #### [place] [address] [place] #### LUPANTCOAG #### [facility] , RBC (Bld) [#/Vol] 4.68 10*6/uL Normal 3.60-5.00 [facility] Comment on above: Performed By: #### P P #### [address] #### LUPANTCOAG #### [facility] , WBC (Bld) [#/Vol] 5.6 10*3/uL Normal 3.8-11.6 [facility] Comment on above: Performed By: #### P P #### [address] #### LUPANTCOAG #### [facility] , Comprehensive Metabolic Pane angella 12-16-2024 Albumin [Mass/Vol] 4.1 g/dL Normal 3.5-5.7 [facility] Comment on above: Performed By: #### E SR, TSH3, CK, ADDONUAPLUS, CBC, CRP, CMP, T4F #### [address] #### RPR W RFX, ALDOLASE, GUZMAN,URINE, UPE RAND #### [facility] , Albumin/Globulin [Mass ratio] 1.9 {ratio} Normal [facility] Comment on above: Performed By: #### E SR, TSH3, CK, ADDONUAPLUS, CBC, CRP, CMP, T4F #### [address] #### RPR W RFX, ALDOLASE, GUZMAN,URINE, UPE RAND #### [facility] , ALP [Catalytic activity/Vol] 84 U/L Normal 34-[address] [facility] Comment on above: Performed By: #### E SR, TSH3, CK, ADDONUAPLUS, CBC, CRP, CMP, T4F #### [address] [place] [address] [place] #### RPR W RFX, ALDOLASE, GUZMAN,URINE, UPE RAND #### [facility] , ALT [Catalytic activity/Vol] 31 U/L Normal 7-[address] [facility] Comment on above: Performed By: #### E SR, TSH3, CK, ADDONUAPLUS, CBC, CRP, CMP, T4F #### [address] #### RPR W RFX, ALDOLASE, GUZMAN,URINE, UPE RAND #### [facility] , Anion gap [Moles/Vol] 8.2 mmol/L Normal 6.0-15.[address] [facility] Comment on above: Performed By: #### E SR, TSH3, CK, ADDONUAPLUS, CBC, CRP, CMP, T4F #### [address] #### RPR W RFX, ALDOLASE, GUZMAN,URINE, UPE RAND #### [facility] , AST [Catalytic activity/Vol] 31 U/L Normal 13-[address] [facility] Comment on above: Performed By: #### E SR, TSH3, CK, ADDONUAPLUS, CBC, CRP, CMP, T4F #### [address] #### RPR W RFX, ALDOLASE, GUZMAN,URINE, UPE RAND #### [facility] , Bilirubin [Mass/Vol] 0.3 mg/dL Normal 0.3-1.[address] [facility] Comment on above: Performed By: #### E SR, TSH3, CK, ADDONUAPLUS, CBC, CRP, CMP, T4F #### [address] #### RPR W RFX, ALDOLASE, GUZMAN,URINE, UPE RAND #### [facility] , Calcium [Mass/Vol] 9.3 mg/dL Normal 8.6-10.3 [facility] Comment on above: Performed By: #### E SR, TSH3, CK, ADDONUAPLUS, CBC, CRP, CMP, T4F #### [address] #### RPR W RFX, ALDOLASE, GUZMAN,URINE, UPE RAND #### [facility] , Chloride [Moles/Vol] 107 mmol/L Normal 98-[address] [facility] Comment on above: Performed By: #### E SR, TSH3, CK, ADDONUAPLUS, CBC, CRP, CMP, T4F #### [address] #### RPR W RFX, ALDOLASE, GUZMAN,URINE, UPE RAND #### [facility] , CO2 [Moles/Vol] 30.0 mmol/L Normal 21.0-31.0 [facility] Comment on above: Performed By: #### E SR, TSH3, CK, ADDONUAPLUS, CBC, CRP, CMP, T4F #### [address] #### RPR W RFX, ALDOLASE, GUZMAN,URINE, UPE RAND #### [facility] , Creatinine [Mass/Vol] 0.70 mg/dL Normal 0.60-1.[address] [facility] Comment on above: Performed By: #### E SR, TSH3, CK, ADDONUAPLUS, CBC, CRP, CMP, T4F #### [address] #### RPR W RFX, ALDOLASE, GUZMAN,URINE, UPE RAND #### [facility] , GFR/1.73 sq M.predicted MDRD (S/P/Bld) [Vol rate/Area] mL/min/{1.73_m2} Normal [facility] Comment on above: Performed By: #### E SR, TSH3, CK, ADDONUAPLUS, CBC, CRP, CMP, T4F #### [address] #### RPR W RFX, ALDOLASE, GUZMAN,URINE, UPE RAND #### [facility] , Globulin (S) [Mass/Vol] 2.2 g/dL Normal [facility] Comment on above: Performed By: #### E SR, TSH3, CK, ADDONUAPLUS, CBC, CRP, CMP, T4F #### [address] #### RPR W RFX, ALDOLASE, GUZMAN,URINE, UPE RAND #### [facility] , Glucose [Mass/Vol] 85 mg/dL Normal 70-100 [facility] Comment on above: Result Comment: [place] Glucose Reference Range is dependent on time and content of last meal. Glucose of more than 200 mg/dL in a nonstressed, ambulatory subject supports the diagnosis of Diabetes Mellitus. ADA recommended reference range Performed By: #### E SR, TSH3, CK, ADDONUAPLUS, CBC, CRP, CMP, T4F #### [place] [address] [place] #### RPR W RFX, ALDOLASE, GUZMAN,URINE, UPE RAND #### [facility] , Potassium [Moles/Vol] 4.2 mmol/L Normal 3.5-5.[address] [facility] Comment on above: Performed By: #### E SR, TSH3, CK, ADDONUAPLUS, CBC, CRP, CMP, T4F #### [place] [address] [place] #### RPR W RFX, ALDOLASE, GUZMAN,URINE, UPE RAND #### [facility] , Protein [Mass/Vol] 6.3 g/dL Low 6.4-8.9 [facility] Comment on above: Performed By: #### E SR, TSH3, CK, ADDONUAPLUS, CBC, CRP, CMP, T4F #### [place] [address] [place] #### RPR W RFX, ALDOLASE, GUZMAN,URINE, UPE RAND #### [facility] , Sodium [Moles/Vol] 141 mmol/L Normal 136-145 [facility] Comment on above: Performed By: #### E SR, TSH3, CK, ADDONUAPLUS, CBC, CRP, CMP, T4F #### [address] #### RPR W RFX, ALDOLASE, GUZMAN,URINE, UPE RAND #### [facility] , Urea nitrogen [Mass/Vol] 11 mg/dL Normal 7-[address] [facility] Comment on above: Performed By: #### E SR, TSH3, CK, ADDONUAPLUS, CBC, CRP, CMP, T4F #### [address] #### RPR W RFX, ALDOLASE, GUZMAN,URINE, UPE RAND #### [facility] , Creatine Kinaseon 12-16-2024 CK [Catalytic activity/Vol] 487 U/L High 30-[address] [facility] Comment on above: Result Comment: PERF ORMED BY: [place] [address] PATHOLOG[employer] PAZ GUILLERMO M.D. Performed By: #### E SR, TSH3, CK, ADDONUAPLUS, CBC, CRP, CMP, T4F #### [address] #### RPR W RFX, ALDOLASE, GUZMAN,URINE, UPE RAND #### [facility] , Creatine kinase [Enzymatic a ctivity/volume] in Serum or PlasmaOrdered By: Everett Valdez on 12-16-2024 CK [Catalytic activity/Vol] Creatine kinase [Enzymatic activity/volume] in Serum or Plasma High 30-223 [facility] Creatinine [Mass/volume] in Serum or PlasmaOrdered By: Everett Valdez on 12-16-2024 Creatinine [Mass/Vol] Creatinine [Mass/volume] in Serum or Plasma 0.60-1.20 [facility] Dipstick and Microscopicon 0 12-16-2024 Appearance (U) Clear Normal Clear [facility] Comment on above: Order Comment: Name Collection Type:: Clean-Voided Midstream Performed By: #### E SR, TSH3, CK, ADDONUAPLUS, CBC, CRP, CMP, T4F #### [address] #### RPR W RFX, ALDOLASE, GUZMAN,URINE, UPE RAND #### [facility] , Bacteria,Urine Rare Normal None Seen [facility] Comment on above: Order Comment: Name Collection Type:: Clean-Voided Midstream Performed By: #### E SR, TSH3, CK, ADDONUAPLUS, CBC, CRP, CMP, T4F #### [address] #### RPR W RFX, ALDOLASE, GUZMAN,URINE, UPE RAND #### [facility] , Bilirubin,Urine Negative Normal Negative [facility] Comment on above: Order Comment: Name Collection Type:: Clean-Voided Midstream Performed By: #### E SR, TSH3, CK, ADDONUAPLUS, CBC, CRP, CMP, T4F #### [address] #### RPR W RFX, ALDOLASE, GUZMAN,URINE, UPE RAND #### [facility] , Color (U) Yellow Normal Yellow [facility] Comment on above: Order Comment: Name Collection Type:: Clean-Voided Midstream Performed By: #### E SR, TSH3, CK, ADDONUAPLUS, CBC, CRP, CMP, T4F #### [place] [address] [place] #### RPR W RFX, ALDOLASE, GUZMAN,URINE, UPE RAND #### [facility] , Glucose Ql (U) Normal Normal Normal [facility] Comment on above: Order Comment: Name Collection Type:: Clean-Voided Midstream Performed By: #### E SR, TSH3, CK, ADDONUAPLUS, CBC, CRP, CMP, T4F #### [address] #### RPR W RFX, ALDOLASE, GUZMAN,URINE, UPE RAND #### [facility] , Hyaline Casts,Urine 0-8 Normal 0-8 [facility] Comment on above: Order Comment: Name Collection Type:: Clean-Voided Midstream Performed By: #### E SR, TSH3, CK, ADDONUAPLUS, CBC, CRP, CMP, T4F #### [address] #### RPR W RFX, ALDOLASE, GUZMAN,URINE, UPE RAND #### [facility] , Ketones Ql (U) Negative Normal Negative [facility] Comment on above: Order Comment: Name Collection Type:: Clean-Voided Midstream Performed By: #### E SR, TSH3, CK, ADDONUAPLUS, CBC, CRP, CMP, T4F #### [address] #### RPR W RFX, ALDOLASE, GUZMAN,URINE, UPE RAND #### [facility] , Leukocyte esterase Test strip Ql (U) Negative Normal Negative [facility] Comment on above: Order Comment: Name Collection Type:: Clean-Voided Midstream Performed By: #### E SR, TSH3, CK, ADDONUAPLUS, CBC, CRP, CMP, T4F #### [address] #### RPR W RFX, ALDOLASE, GUZMAN,URINE, UPE RAND #### [facility] , Mucus,Urine 1+ Critically abnormal [facility] Comment on above: Order Comment: Name Collection Type:: Clean-Voided Midstream Result Comment: PERF ORMED BY: [place] [address] PATHOLOG[employer] PAZ GUILLERMO M.D. Performed By: #### E SR, TSH3, CK, ADDONUAPLUS, CBC, CRP, CMP, T4F #### [address] #### RPR W RFX, ALDOLASE, GUZMAN,URINE, UPE RAND #### [facility] , Nitrite,Urine Negative Normal Negative [facility] Comment on above: Order Comment: Name Collection Type:: Clean-Voided Midstream Performed By: #### E SR, TSH3, CK, ADDONUAPLUS, CBC, CRP, CMP, T4F #### [address] #### RPR W RFX, ALDOLASE, GUZMAN,URINE, UPE RAND #### [facility] , Occult Blood,Urine Negative Normal Negative [facility] Comment on above: Order Comment: Name Collection Type:: Clean-Voided Midstream Performed By: #### E SR, TSH3, CK, ADDONUAPLUS, CBC, CRP, CMP, T4F #### [address] #### RPR W RFX, ALDOLASE, GUZMAN,URINE, UPE RAND #### [facility] , pH (U) 5.0 [pH] Normal 5.0-9.[address] [facility] Comment on above: Order Comment: Name Collection Type:: Clean-Voided Midstream Performed By: #### E SR, TSH3, CK, ADDONUAPLUS, CBC, CRP, CMP, T4F #### [address] #### RPR W RFX, ALDOLASE, GUZMAN,URINE, UPE RAND #### [facility] , Protein,Urine Negative Normal Negative [facility] Comment on above: Order Comment: Name Collection Type:: Clean-Voided Midstream Performed By: #### E SR, TSH3, CK, ADDONUAPLUS, CBC, CRP, CMP, T4F #### [address] #### RPR W RFX, ALDOLASE, GUZMAN,URINE, UPE RAND #### [facility] , RBC,Urine 1-2 Normal 0-[address] [facility] Comment on above: Order Comment: Name Collection Type:: Clean-Voided Midstream Performed By: #### E SR, TSH3, CK, ADDONUAPLUS, CBC, CRP, CMP, T4F #### [address] #### RPR W RFX, ALDOLASE, GUZMAN,URINE, UPE RAND #### [facility] , Specificy [place],Urine 1.024 Normal 1.001-1.[address] [facility] Comment on above: Order Comment: Name Collection Type:: Clean-Voided Midstream Performed By: #### E SR, TSH3, CK, ADDONUAPLUS, CBC, CRP, CMP, T4F #### [address] #### RPR W RFX, ALDOLASE, GUZMAN,URINE, UPE RAND #### [facility] , Squamous Epithelial Cell,Urine 5-9 High 0-[address] [facility] Comment on above: Order Comment: Name Collection Type:: Clean-Voided Midstream Performed By: #### E SR, TSH3, CK, ADDONUAPLUS, CBC, CRP, CMP, T4F #### [place] [address] [place] #### RPR W RFX, ALDOLASE, GUZMAN,URINE, UPE RAND #### [facility] , Urobilinogen,Urine Normal Normal Normal [facility] Comment on above: Order Comment: Name Collection Type:: Clean-Voided Midstream Performed By: #### E SR, TSH3, CK, ADDONUAPLUS, CBC, CRP, CMP, T4F #### [place] [address] [place] #### RPR W RFX, ALDOLASE, GUZMAN,URINE, UPE RAND #### [facility] , WBC,Urine 1-2 Normal 0-[address] [facility] Comment on above: Order Comment: Name Collection Type:: Clean-Voided Midstream Performed By: #### E SR, TSH3, CK, ADDONUAPLUS, CBC, CRP, CMP, T4F #### [place] [address] [place] #### RPR W RFX, ALDOLASE, GUZMAN,URINE, UPE RAND #### [facility] , Eosinophils Auto (Bld) [#/Vo l]Ordered By: Everett Valdez on 12-16-2024 Eosinophils (Bld) [#/Vol] Automated eosinophil count 0.0-0.45 [facility] Eosinophils/100 WBC Auto (Bl d)Ordered By: Everett Valdez on 12-16-2024 Eosinophils/100 WBC (Bld) Automated eosinophil % . [facility] Epithelial cells.squamous [# /area] in Urine sediment by Automated countOrdered By: Everett Valdez on 12-16-2024 Epithelial cells.squamous Auto (Urine sed) [#/Area] Epithelial cells.squamous [#/area] in Urine sediment by Automated count High 0-2 [facility] Erythrocyte Sedimentation Ra lian 12-16-2024 ESR (Bld) [Velocity] 6 mm/h Normal 0-[address] [facility] Comment on above: Result Comment: PERF ORMED BY: [place] [address] PATHOLOG[employer] PAZ GUILLERMO M.D. Performed By: #### P P #### [place] [address] [place] #### LUPANTCOAG #### [facility] , Erythrocyte distribution wid th Auto (RBC) [Ratio]Ordered By: Everett Valdez on 12-16-2024 Erythrocyte distribution width (RBC) [Ratio] Erythrocyte distribution width [Ratio] by Automated count 11.9-15.3 [facility] Erythrocyte sedimentation ra te by Photometric methodOrdered By: Everett Valdez on 12-16-2024 ESR Photometric method (Bld) [Velocity] Erythrocyte sedimentation rate by Photometric method 0-29 [facility] Erythrocytes [#/area] in Uri ne sediment by Automated countOrdered By: Everett Valdez on 12-16-2024 RBC Auto (Urine sed) [#/Area] Erythrocytes [#/area] in Urine sediment by Automated count 0-4 [facility] Free T4 (Free Thyroxine)on 0 12-16-2024 Free T4 [Mass/Vol] 0.77 ng/dL Normal 0.61-1.12 [facility] Comment on above: Performed By: #### E SR, TSH3, CK, ADDONUAPLUS, CBC, CRP, CMP, T4F #### [facility] [address] #### RPR W RFX, ALDOLASE, GUZMAN,URINE, UPE RAND #### [facility] , Globulin Calc (S) [Mass/Vol] Ordered By: Everett Valdez on 12-16-2024 Globulin (S) [Mass/Vol] Serum globulin measurement by calculation (mass/volume) [facility] Glucose [Mass/volume] in Ser um or PlasmaOrdered By: Everett Valdez on 12-16-2024 Glucose [Mass/Vol] Glucose [Mass/volume ] in Serum or Plasma 70-100 [facility] Comment on above: ADA recommended [...] [Mass/volume] in Urine by Test strip Normal [facility] Hematocrit Auto (Bld) [Volum e fraction]Ordered By: Everett Valdez on 12-16-2024 Hematocrit (Bld) [Volume fraction] Hematocrit [Volume Fraction] of Blood by Automated count 34.0-46.4 [facility] Hemoglobin Test strip Ql (U) Ordered By: Everett Valdez on 12-16-2024 Hemoglobin Ql (U) Hemoglobin [Presence ] in Urine by Test strip Negative [facility] Hemoglobin [Mass/volume] in BloodOrdered By: Everett Valdez on 12-16-2024 Hemoglobin (Bld) [Mass/Vol] Hemoglobin [Mass/volume] in Blood 11.8-15.4 [facility] Hyaline casts [#/area] in Ur ine sediment by Automated countOrdered By: Everett Valdez on 12-16-2024 Hyaline casts Auto (Urine sed) [#/Area] Hyaline casts [#/area] in Urine sediment by Automated count 0-8 [facility] INR in Platelet poor plasma by Coagulation assayOrdered By: Everett Valdez on 12-16-2024 INR Coag (PPP) [Relative time] INR in Platelet poor plasma by Coagulation assay [facility] Comment on above: INR Therapeutic Rang [...] Immunofixation (U) [Interp] Immunofixation for Urine . [facility] Comment on above: No monoclonality det ected.Performed at: - [facility] [id number] Director: Erick Neville PhD, Phone: [phone] Immunofixation, (GUZMAN), Urine on 12-16-2024 Immunofixation, (GUZMAN), Urine Comment Normal . [facility] Comment on above: Result Comment: No m onoclonality detected. Performed at: [facility] [id number] [employer] Hacker: Erick Neville PhD, Phone: [phone] Performed By: #### P P #### [place] [address] [place] #### LUPANTCOAG #### [facility] , Immunofixation,Serumon 12-16 Immunofixation, Serum Comment Normal . [facility] Comment on above: Result Comment: No m onoclonality detected. Performed By: #### P P #### [place] [address] [place] #### LUPANTCOAG #### [facility] , Immunoglobulin A, Serum 216 mg/dL Normal 87-[address] [facility] Comment on above: Performed By: #### P P #### [place] [address] [place] #### LUPANTCOAG #### [facility] , Immunoglobulin G 802 mg/dL Normal 586-1602 [facility] Comment on above: Performed By: #### P P #### [place] [address] [place] #### LUPANTCOAG #### [facility] , Immunoglobulin M, Serum 78 mg/dL Normal 26-[address] [facility] Comment on above: Result Comment: Perf ormed at: - [facility] [id number] Growth Hacker: Erick Neville PhD, Phone: [phone] Performed By: #### P P #### [facility] [address] [place] [address] [place] #### LUPANTCOAG #### [facility] , Ketones Test strip Ql (U)Ord ered By: Everett Valdez on 12-16-2024 Ketones Ql (U) Ketones [Presence] i n Urine by Test strip Negative [facility] Leukocyte esterase [Presence ] in Urine by Test stripOrdered By: Everett Valdez on 12-16-2024 Leukocyte esterase Test strip Ql (U) Leukocyte esterase [Presence] in Urine by Test strip Negative [facility] Leukocytes [#/area] in Urine sediment by Automated countOrdered By: Everett Valdez on 12-16-2024 WBC Auto (Urine sed) [#/Area] Leukocytes [#/area] in Urine sediment by Automated count 0-4 [facility] Leukocytes [#/volume] correc herbert for nucleated erythrocytes in Blood by Automated counOrdered By: Everett Valdez on 12-16-2024 WBC corrected for nucl RBC Auto (Bld) [#/Vol] Leukocytes [#/volume] corrected for nucleated erythrocytes in Blood by Automated coun 3.8-11.6 [facility] Lupus Anticoagulant Compon 0 12-16-2024 Dilute Prothrombin Time (dPt) 30.8 Normal 0.0-47.[address] [facility] Comment on above: Performed By: #### P P #### [facility] [address] [place] [address] [place] #### LUPANTCOAG #### [facility] , dPT Confirm Ratio 1.06 Normal 0.00-1.34 [facility] Comment on above: Performed By: #### P P #### [facility] [address] [place] [address] [place] #### LUPANTCOAG #### [facility] , DRVVT Lupus 37.0 Normal 0.0-47.[address] [facility] Comment on above: Performed By: #### P P #### [facility] [address] [place] [address] [place] #### LUPANTCOAG #### [facility] , Interpretation Comment: Normal . [facility] Comment on above: Result Comment: No l upus anticoagulant was detected. Performed at: - [address] [id number] Growth Hacker: Jim Gong MD, Phone: [phone] PERFORMED BY: [place] [address] PATH[employer] PAZ GUILLERMO M.D. Performed By: #### P P #### [place] [address] [place] #### LUPANTCOAG #### [facility] , PTT-LA 26.8 Normal 0.0-43.[address] [facility] Comment on above: Performed By: #### P P #### [place] [address] [place] #### LUPANTCOAG #### [facility] , Thrombin Time 19.0 Normal 0.0-23.0 [facility] Comment on above: Performed By: #### P P #### [facility] [address] [place] [address] [place] #### LUPANTCOAG #### [facility] , Lupus anticoagulant [Interpr etation] in Platelet poor plasmaOrdered By: Everett Valdez on 12-16-2024 Lupus anticoagulant (PPP) [Interp] Lupus anticoagulant [Interpretation] in Platelet poor plasma . [facility] Comment on above: No lupus anticoagula nt was detected.Performed at: - [facility] [id number] Director: Jim Gong MD, Phone: [phone] Lymphocytes Auto (Bld) [#/Vo l]Ordered By: Everett Valdez on 12-16-2024 Lymphocytes (Bld) [#/Vol] Lymphocytes [#/volume] in Blood by Automated count 1.00-4.8 [facility] Lymphocytes/100 WBC Auto (Bl d)Ordered By: Everett Valdez on 12-16-2024 Lymphocytes/100 WBC (Bld) Lymphocytes/100 leukocytes in Blood by Automated count . [facility] MCH Auto (RBC) [Entitic mass ]Ordered By: Everett Valdez on 12-16-2024 MCH (RBC) [Entitic mass] MCH [Entitic mass] by Automated count 24.7-34.3 [facility] MCHC Auto (RBC) [Mass/Vol]Or dered By: Everett Valdez on 12-16-2024 MCHC (RBC) [Mass/Vol] MCHC [Mass/volume] by Automated count 32.0-35.0 [facility] MCV Auto (RBC) [Entitic vol] Ordered By: Everett Valdez on 12-16-2024 MCV (RBC) [Entitic vol] MCV [Entitic volume] by Automated count 80-100 [facility] Monocytes Auto (Bld) [#/Vol] Ordered By: Everett Valdez on 12-16-2024 Monocytes (Bld) [#/Vol] Automated blood monocyte count 0.0-0.8 [facility] Monocytes/100 WBC Auto (Bld) Ordered By: Everett Valdez on 12-16-2024 Monocytes/100 WBC (Bld) Automated monocyte % . [facility] Mucus [Presence] in Urine by AutomatedOrdered By: Everett Valdez on 12-16-2024 Mucus Auto Ql (U) Mucus [Presence] in Urine by Automated Abnormal [facility] Neutrophils Auto (Bld) [#/Vo l]Ordered By: Everett Valdez on 12-16-2024 Neutrophils (Bld) [#/Vol] Neutrophils [#/volume] in Blood by Automated count 1.8-7.7 [facility] Neutrophils/100 WBC Auto (Bl d)Ordered By: Everett Valdez on 12-16-2024 Neutrophils/100 WBC (Bld) Automated neutrophil % . [facility] Nitrite Test strip Ql (U)Ord ered By: Everett Valdez on 12-16-2024 Nitrite Ql (U) Nitrite [Presence] i n Urine by Test strip Negative [facility] No Panel InformationOrdered By: Everett Valdez on 12-16-2024 Estimated GFR (CKD-EPI) > 60.0 mL/Min [facility] Creatinine Clearance (Chem N/A [facility] Protein Electrophoresis M-Juan Miguel Not observed g/dL Not Observed [facility] Protein Electrophoresis Note Comment . [facility] Comment on above: Protein electrophore sis scan will follow via computer,mail, or parks and recreation manager delivery.Performed at: - [facility] [address] [place], [place] [id number] Director: Erick Neville PhD, Phone: [phone] Urine Random Prot Electrophor Note Comment . [facility] Comment on above: Protein electrophore sis scan will follow via computer,mail, or parks and recreation manager delivery. Nucleated erythrocytes [Pres ence] in Blood by Automated countOrdered By: Everett Valdez on 12-16-2024 Nucleated RBC Auto Ql (Bld) Nucleated erythrocytes [Presence] in Blood by Automated count 0-0.5 [facility] Plasma thrombin timeOrdered By: Everett Valdez on 12-16-2024 Thrombin time Coag (PPP) [Time] TT plas 0.0-23.0 [facility] Platelet mean volume Auto (B ld) [Entitic vol]Ordered By: Everett Valdez on 12-16-2024 Platelet mean volume (Bld) [Entitic vol] Platelet mean volume [Entitic volume] in Blood by Automated count 6.3-10.7 [facility] Platelet poor plasma ratio o f lupus anticoagulant-sensitive activated partial thromboOrdered By: Everett Valdez on 12-16-2024 aPTT.lupus sensitive.excess phospholipid actual/normal Coag (PPP) [Relative time] Platelet poor plasma ratio of lupus anticoagulant-sensitiv e activated partial thrombo 0.0-47.6 [facility] Platelets Auto (Bld) [#/Vol] Ordered By: Everett Valdez on 12-16-2024 Platelets (Bld) [#/Vol] Platelets [#/volume] in Blood by Automated count 150-450 [facility] Potassium [Moles/volume] in Serum or PlasmaOrdered By: Everett Valdez on 12-16-2024 Potassium [Moles/Vol] Potassium [Moles/volume] in Serum or Plasma 3.5-5.1 [facility] Protein Electro, Random Urin destinee 12-16-2024 Albumin, Urine 34.3 % Normal . [facility] Comment on above: Performed By: #### P P #### [place] [address] [place] #### LUPANTCOAG #### [facility] , Csjtp-4-Wjcuhhnq, Urine 2.2 % Normal . [facility] Comment on above: Performed By: #### P P #### [place] [address] [place] #### LUPANTCOAG #### [facility] , Chzir-0-Mxyozbip, Urine 18.4 % Normal . [facility] Comment on above: Performed By: #### P P #### [place] [address] [place] #### LUPANTCOAG #### [facility] , Beta Globulin, Urine 30.5 % Normal . [facility] Comment on above: Performed By: #### P P #### [address] #### LUPANTCOAG #### [facility] , Gamma Globulin, Urine 14.7 % Normal . [facility] Comment on above: Performed By: #### P P #### [address] #### LUPANTCOAG #### [facility] , M-Juan Miguel % Not Observed Normal Not Observed [facility] Comment on above: Performed By: #### P P #### [place] [address] [place] #### LUPANTCOAG #### [facility] , Please Note: Comment Normal . [facility] Comment on above: Result Comment: Prot ein electrophoresis scan will follow via computer, mail, or parks and recreation manager delivery. PERFORMED BY: [place] [address] PATHOLOG[employer] PAZ GUILLERMO M.D. Performed By: #### P P #### [place] [address] [place] #### LUPANTCOAG #### [facility] , Protein (U) [Mass/Vol] 9.0 mg/dL Normal Not Estab. [facility] Comment on above: Performed By: #### P P #### [place] [address] [place] #### LUPANTCOAG #### [facility] , Protein Electrophoresis, Ser umon 12-16-2024 Albumin [Mass/Vol] 3.8 g/dL Normal 2.9-4.4 [facility] Comment on above: Performed By: #### C BC #### [address] Albumin/Globulin [Mass ratio] 1.4 {ratio} Normal 0.7-1.[address] [facility] Comment on above: Performed By: #### C BC #### [address] Tnqit-4-Tnjoohmd 0.2 g/dL Normal 0.0-0.4 [facility] Comment on above: Performed By: #### C BC #### [address] Xovpp-1-Qtmgohzf 0.6 g/dL Normal 0.4-1.0 [facility] Comment on above: Performed By: #### C BC #### [address] Beta Globulin 1.1 g/dL Normal 0.7-1.3 [facility] Comment on above: Performed By: #### C BC #### [address] Gamma Globulin 0.8 g/dL Normal 0.4-1.8 The [facility] Comment on above: Performed By: #### C BC #### [address] Globulin (S) [Mass/Vol] 2.7 g/dL Normal 2.2-3.[address] [facility] Comment on above: Performed By: #### C BC #### [address] M-Juan Miguel Not Observed Normal Not Observed [facility] Comment on above: Performed By: #### C BC #### [facility] [address] Protein [Mass/Vol] 6.5 g/dL Normal 6.0-8.5 [facility] Comment on above: Performed By: #### C BC #### [address] SPE-Note Comment Normal . [facility] Comment on above: Result Comment: Prot ein electrophoresis scan will follow via computer, mail, or parks and recreation manager delivery. Performed at: [address] [id number] Growth Hacker: Erick Neville PhD, Phone: [phone] Performed By: #### C BC #### [address] Protein Test strip (U) [Mass /Vol]Ordered By: Everett Valdez on 12-16-2024 Protein (U) [Mass/Vol] Protein [Mass/volume] in Urine by Test strip Negative [facility] Protein [Mass/volume] in Ser um or PlasmaOrdered By: Everett Valdez on 12-16-2024 Protein [Mass/Vol] Protein [Mass/volume ] in Serum or Plasma 6.0-8.5 [facility] Prothrombin time (PT)Ordered By: Everett Valdez on 12-16-2024 PT Coag (PPP) [Time] Prothrombin time (PT) 9.0- 12.9 [facility] Comment on above: A hematocrit value g reater than 55% may lead to inaccurate results in coagulation testing. Patients having hematocrit values >55% require a special collection tube for coagulation studies. Please contact the laboratory at [phone] for redraw instructions. RBC Auto (Bld) [#/Vol]Ordere d By: Everett Valdez on 12-16-2024 RBC (Bld) [#/Vol] Erythrocytes [#/volume] in Blood by Automated count 3.60-5.00 [facility] RPR w/rfx to Quant TP Abson 12-16-2024 RPR, Rfx Quant RPR Non-Reactive Normal Non Reactive [facility] Comment on above: Result Comment: Perf ormed at: - [facility] [id number] [place], [place] [id number] Growth Hacker: Erick Neville PhD, Phone: [phone] PERFORMED BY: [place] [address] PATHOLOG[employer] PAZ GUILLERMO M.D. Performed By: #### P P #### [place] [address] [place] #### LUPANTCOAG #### [facility] , Screening dilute Jamie's v iper venom time (DRVVT) with reflex to confirmatory testOrdered By: Everett Valdez on 12-16-2024 dRVVT Coag (PPP) [Time] Screening dilute Jamie's viper venom time (DRVVT) with reflex to confirmatory test 0.0-47.0 [facility] Screening lupus anticoagulan t-sensitive activated partial thromboplastin time (aPTT)Ordered By: Everett Valdez on 12-16-2024 aPTT.lupus sensitive Coag (PPP) [Time] Screening lupus anticoagulant-sensitiv e activated partial thromboplastin time (aPTT) 0.0-43.5 [facility] Serum RPR testOrdered By: Dori Valdez on 12-16-2024 Reagin Ab RPR Ql (S) Reagin Ab [Presence ] in Serum by RPR Non Reactive [facility] Comment on above: Performed at: [employer] [facility] [employer] [address] [id number] Director: Erick Neville PhD, Phone: [phone] Serum aldolase measurementOr dered By: Everett Valdez on 12-16-2024 Aldolase 13.5 U/L High 3.3-10.3 [facility] Comment on above: Performed at: [employer] [facility] [employer] [address] [id number] Director: Erick Neville PhD, Phone: [phone] Result Comment: Perf ormed at: [facility] [address] [place], [place] [id number] Growth Hacker: Erick Neville PhD, Phone: [phone] PERFORMED BY: [place] [address] PATHOLOGIST [employer] PAZ GUILLERMO M.D. Performed By: #### P P #### [address] #### LUPANTCOAG #### [facility] , Serum globulin measurement ( mass/volume)Ordered By: vEerett Valdez on 12-16-2024 Globulin (S) [Mass/Vol] Serum globulin measurement (mass/volume) 2.2-3.9 [facility] Serum homogeneous pattern an tinuclear antibody (CHUYITA) titerOrdered By: Everett Valdez on 12-16-2024 Homogenous nuclear Ab pattern (S) [Titer] Serum homogeneous pattern antinuclear antibody (CHUYITA) titer [facility] Serum immunofixation electro phoresisOrdered By: Everett Valdez on 12-16-2024 Serum Immunofixation Comment . [facility] Comment on above: No monoclonality det ected. Serum nuclear antibody titer Ordered By: Everett Valdez on 12-16-2024 Nuclear Ab (S) [Titer] Serum nuclear antibody titer . [facility] Comment on above: Negative <1:80 Borde rline 1:80 Positive >1:80ICAP nomenclature: [id number] more information about Hep-2 cell patterns useANApatterns.org, the official website for theInternational Consensus on Antinuclear Antibody (CHUYITA)Patterns (ICAP).Performed at: - [facility] [place], [place] [id number] Director: Erick Neville PhD, Phone: [phone] Serum or plasma IgA measurem ent (mass/volume)Ordered By: Everett Valdez on 12-16-2024 IgA [Mass/Vol] IgA [Mass/volume] in Serum or Plasma 87-352 [facility] Serum or plasma IgG measurem ent (mass/volume)Ordered By: Everett Valdez on 12-16-2024 IgG [Mass/Vol] IgG [Mass/volume] in Serum or Plasma [phone] [facility] Serum or plasma IgM measurem ent (mass/volume)Ordered By: Everett Valdez on 12-16-2024 IgM [Mass/Vol] IgM [Mass/volume] in Serum or Plasma 26-217 [facility] Comment on above: Performed at: [facility] [employer] [id number] Director: Erick Neville PhD, Phone: [phone] Serum or plasma albumin ravinder urement (mass/volume)Ordered By: Everett Valdez on 12-16-2024 Albumin [Mass/Vol] Albumin [Mass/volume ] in Serum or Plasma 2.9-4.4 [facility] Serum or plasma albumin/glob ulin mass ratioOrdered By: Everett Valdez on 12-16-2024 Albumin/Globulin [Mass ratio] Serum or plasma albumin/globulin mass ratio 0.7-1.7 [facility] Serum or plasma alpha 1 glob ulin measurement by electrophoresis (mass/volume)Ordered By: Everett Valdez on 12-16-2024 Alpha 1 globulin Elph [Mass/Vol] Serum or plasma alpha 1 globulin measurement by electrophoresis (mass/volume) 0.0-0.4 [facility] Serum or plasma alpha 2 glob ulin measurement by electrophoresis (mass/volume)Ordered By: Everett Valdez on 12-16-2024 Alpha 2 globulin Elph [Mass/Vol] Serum or plasma alpha 2 globulin measurement by electrophoresis (mass/volume) 0.4-1.0 [facility] Serum or plasma anion gap de terminationOrdered By: Everett Valdez on 12-16-2024 Anion gap [Moles/Vol] Serum or plasma an ion gap determination 6.0-15.0 [facility] Serum or plasma beta globuli n measurement by electrophoresis (mass/volume)Ordered By: Everett Valdez on 12-16-2024 Beta globulin Elph [Mass/Vol] Serum or plasma beta globulin measurement by electrophoresis (mass/volume) 0.7-1.3 [facility] Serum or plasma chromatin an tibody assay (units/volume)Ordered By: Everett Valdez on 12-16-2024 Chromatin Ab Qn Serum or plasma chromatin antibody assay (units/volume) 0.0-0.9 [facility] Comment on above: Performed at: [employer] [address] [id number] Director: Erick Neville PhD, Phone: [phone] Serum or plasma complement C 3 measurement (mass/volume)Ordered By: Everett Valdez on 12-16-2024 Complement C3 [Mass/Vol] Serum or plasma complement C3 measurement (mass/volume) 82-167 [facility] Comment on above: Performed at: [employer] [address] [id number] Director: Erick Neville PhD, Phone: [phone] Serum or plasma complement C 4 measurement (mass/volume)Ordered By: Everett Valdez on 12-16-2024 Complement C4 [Mass/Vol] Serum or plasma complement C4 measurement (mass/volume) 12-38 [facility] Serum or plasma gamma globul in measurement by electrophoresis (mass/volume)Ordered By: Everett Valdez on 12-16-2024 Gamma globulin Elph [Mass/Vol] Serum or plasma gamma globulin measurement by electrophoresis (mass/volume) 0.4-1.8 [facility] Serum or plasma thyroglobuli n antibody assay (units/volume)Ordered By: Everett Valdez on 12-16-2024 Thyroglobulin Ab Qn Serum or plasma thyroglobulin antibody assay (units/volume) 0.0-0.9 [facility] Comment on above: Thyroglobulin Antibo dy measured by [employer] SolutionsMethodologyIt should be noted that the presence of thyroglobulinantibodies may not be pathogenic nor diagnostic, especiallyat very low levels. The assay billing spec has found thatfour percent of individuals without evidence of thyroiddisease or autoimmunity will have positive TgAb levels upto 4 IU/mL.Performed at: [employer] [address] [id number] Director: Erick Neville PhD, Phone: [phone] Serum or plasma thyroperoxid ase antibody assay (units/volume)Ordered By: Eveertt Valdez on 12-16-2024 TPO Ab Qn Serum or plasma thyroperoxidase antibody assay (units/volume) 0-34 [facility] Comment on above: Performed at: [facility] [address] [place], [place] [id number] Director: Erick Neville PhD, Phone: [phone] Sodium [Moles/volume] in Ser um or PlasmaOrdered By: Everett Valdez on 12-16-2024 Sodium [Moles/Vol] Sodium [Moles/volume ] in Serum or Plasma 136-145 [facility] Specific gravity Test strip (U) [Rel density]Ordered By: Everett Valdez on 12-16-2024 Specific gravity (U) [Rel density] Specific gravity of Urine by Test strip 1.001-1.030 [facility] Thyroid Peroxidase Antibodie son 12-16-2024 Thyroid Peroxidase Antibodies 10 [IU]/mL Normal 0-[address] [facility] Comment on above: Result Comment: Perf ormed at: CB - [facility] [place] [address] [place], [place] [id number] Growth Hacker: Erick Neville PhD, Phone: [phone] Performed By: #### P P #### [facility] [address] [place] [address] #### LUPANTCOAG #### [facility] , Thyroid Stimulating Hormoneo n 12-16-2024 TSH Qn 1.48 m[IU]/L Normal 0.45-5.33 [facility] Comment on above: Result Comment: PERF ORMED BY: [place] [address] PATHOLOGIST [employer] PAZ GUILLERMO M.D. Performed By: #### E SR, TSH3, CK, ADDONUAPLUS, CBC, CRP, CMP, T4F #### [facility] [address] [place] [address] [place] #### RPR W RFX, ALDOLASE, GUZMAN,URINE, UPE RAND #### [facility] , Thyrotropin [Units/volume] i n Serum or PlasmaOrdered By: Everett Valdez on 12-16-2024 TSH Qn Thyrotropin [Units/volume] in Serum or Plasma 0.45-5.33 [facility] Thyroxine (T4) free [Mass/vo lume] in Serum or PlasmaOrdered By: Everett Valdez on 12-16-2024 Free T4 [Mass/Vol] Thyroxine (T4) free [Mass/volume] in Serum or Plasma 0.61-1.12 [facility] Total hemolytic complement C H50 assayOrdered By: Everett Valdez on 12-16-2024 Total Complement (CH50) >60 U/mL >41 [facility] Comment on above: Age Male Female [...] to determine out of range values.Performed at: [employer] [id number] Director: Erick Neville PhD, Phone: [phone] Urea nitrogen [Mass/volume] in Serum or PlasmaOrdered By: Everett Valdez on 12-16-2024 Urea nitrogen [Mass/Vol] Urea nitrogen [Mass/volume] in Serum or Plasma 05-30 [facility] Urine alpha 1 globulin/total protein by electrophoresisOrdered By: Everett Valdez on 12-16-2024 Alpha 1 globulin Elph (U) [Mass fraction] Urine alpha 1 globulin/total protein by electrophoresis . [facility] Urine alpha 2 globulin/total protein ratio by electrophoresisOrdered By: Everett Valdez on 12-16-2024 Alpha 2 globulin Elph (U) [Mass fraction] Urine alpha 2 globulin/total protein ratio by electrophoresis . [facility] Urine beta globulin measurem ent by electrophoresis (mass/volume)Ordered By: Everett Valdez on 12-16-2024 Beta globulin Elph (U) [Mass/Vol] Urine beta globulin measurement by electrophoresis (mass/volume) . [facility] Urine protein measurement (m ass/volume)Ordered By: Everett Valdez on 02-10-2025 Protein (U) [Mass/Vol] Protein [Mass/volume] in Urine Not Estab. [facility] Urobilinogen Test strip (U) [Mass/Vol]Ordered By: Everett Valdez on 12-16-2024 Urobilinogen (U) [Mass/Vol] Urobilinogen [Mass/volume] in Urine by Test strip Normal [facility] WBC Auto (Bld) [#/Vol]Ordere d By: Everett Valdez on 12-16-2024 WBC (Bld) [#/Vol] Leukocytes [#/volume ] in Blood by Automated count 3.8-11.6 [facility] aPTT in Platelet poor plasma by Coagulation assayOrdered By: Everett Valdez on 12-16-2024 aPTT Coag (PPP) [Time] Activated partial thromboplastin time (aPTT) in platelet poor plasma by coagulation a 25.1-36.5 [facility] Comment on above: A hematocrit value g reater than 55% may lead to inaccurate results in coagulation testing. Patients having hematocrit values >55% require a special collection tube for coagulation studies. Please contact the laboratory at [phone] for redraw instructions. aPTT.lupus sensitive/aPTT.hattie pus sensitive W excess phospholipid (screen to confirm raOrdered By: Everett Valdez on 12-16-2024 aPTT.lupus sensitive/aPTT.lupus sensitive W excess phospholipid Coag (PPP) [Ratio] aPTT.lupus sensitive/aPTT.lupus sensitive W excess phospholipid (screen to confirm ra 0.00-1.34 [facility] pH Test strip (U)Ordered By: Everett Valdez on 12-16-2024 pH (U) pH of Urine by Test strip 5.0-9.0 [facility] HBV surface Ab IA Qnon 12-11 Anti HBs quant. >500.00 Normal [facility] Comment on above: Result Comment: NOTE Vaccinated: >=10.00 mIU/mL, Positive (Immune) Unvaccinated: <10.00 mIU/mL, Negative (Not Immune) Interpretive values have changed due to implementation of a new method. Values run higher than previous method. Performed By: #### 3 5275-7, 75274-9, 8014-3, 8363-8, 6476-6 #### [facility] ([id number]) [facility], [address] [place] [address] MeV IgG IA Ql (S)on 12-11-19 25 RUBEOLA AB SCREEN 4.1 AI High <0.9 [facility] Comment on above: Result Comment: POSI TIVE: Antibody(IgG) detected. Indicates previous exposure to rubeola virus and immunity. Performed By: #### 3 5275-7, 16120-1, 8014-3, 5193-8, 6476-6 #### [facility] ([id number]) [address] [place] [address], [address] [place] [address] MuV IgG IA Ql (S)on 12-11-19 25 MUMPS VIRUS IgG 2.1 AI High <0.9 [facility] Comment on above: Result Comment: Interpretation-------- <0.9 Negative 0.9 - 1.0 Equivocal >1.0 Positive Performed By: #### 3 5275-7, 52920-0, 8014-3, 5193-8, 6476-6 #### [facility] ([id number]) [facility], [address] [place] [id number] Rubella virus IgG Qn (S)on 0 12-11-2024 RUBELLA IgG 19 IU/mL Normal [facility] Comment on above: Result Comment: Interpretation-------- <8 NEGATIVE-considered Not Immune 8-9 EQUIVOCAL-consider retesting with new specimen >9 POSITIVE-considered Immune Performed By: #### 3 5275-7, 00913-1, 8014-3, 5193-8, 6476-6 #### [facility] ([id number]) [address] [facility], [address] [place] [address] VZV IgG IA Ql (S)on 12-11-19 VARICELLA IgG >8.0 High <0.9 [facility] Comment on above: Result Comment: Interpretation-------- <0.9 Negative 0.9 - 1.0 Equivocal >1.0 Positive Performed By: #### 3 5275-7, 45693-0, 8014-3, 5193-8, 6476-6 #### [facility] ([id number]) [address], [address] [place] [address] X-ray reportOrdered By: Brett Bullard on 11-20-[address] [facility] [address] [place], [place] [address] XRay Report Signed Patient: Mary Leal MR#: [id number] : 1970 Acct:[id number] Age/Sex: 54 / F ADM Date: 5 Loc: XD Room: Type: [facility] Attending Dr: Anibal Medrano DO Copies [...] Andres Bullard M.D.11/20/2024 10:02 PM Dictation Location: [place] [address] Transcribed By: [facility] 11/20/242201 Dictated By: Andres Bullard DO 11/20/242158 Signed By: 11/20/242201 [facility] XR shoulder BI min 2Von 11-06 XR shoulder BI min 2V [facility] Main [place] [id number] XRay Report Signed Patient: Mary Leal MR#: [id number] [id number] : 1970 Acct:[id number] Age/Sex: 54 / F ADM Date: 11/20/24 Loc: XD Room: Type: [facility] CLI Attending Dr: Anibal Medrano DO Copies [...] Andres Bullard M.D.11/20/2024 10:02 PM Dictation Location: [place] [address] Transcribed By: [facility] 11/20/242201 Dictated By: Andres Bullard DO 11/20/242158 Signed By: 11/20/242201 Normal [facility] NM gastric emptying studyon 11-14-2024 NM gastric emptying study [facility] [address] [place] [id number] Nuclear Medicine Report Signed Patient: Mary Leal MR#: [id number] [id number] : 1970 Acct:[id number] Age/Sex: 54 / F ADM Date: 11/14/24 Loc: [place] Room: Type: [facility] Attending Dr: Padmaja Llamas MD Copies to: [...] Melendez Jr., GastonOReno11/14/2024 1:54 PM Dictation Location: [place] [address] Transcribed By: [facility] 11/14/24 1354 Dictated By: Quinton Melendez Jr, DO 11/14/24 1354 Signed By: 11/14/[address] [facility] Basic Metabolic Panelon 12 Anion gap [Moles/Vol] 9.4 mmol/L Normal 6.0-15.[address] [facility] Comment on above: Performed By: #### B MP #### [facility] [address] [place] [id number] [place] Calcium [Mass/Vol] 9.0 mg/dL Normal 8.6-10.3 [facility] Comment on above: Performed By: #### B MP #### [facility] [address] [place] [id number] [place] Chloride [Moles/Vol] 107 mmol/L Normal 98-[address] [facility] Comment on above: Performed By: #### B MP #### [facility] [address] [place] [address] [place] CO2 [Moles/Vol] 27.3 mmol/L Normal 21.0-31.0 [facility] Comment on above: Performed By: #### B MP #### [facility] [address] [place] [address] [place] Creatinine [Mass/Vol] 0.69 mg/dL Normal 0.60-1.[address] [facility] Comment on above: Performed By: #### B MP #### [address] Creatinine Clr Calc Pharmacy 91.[address] [facility] Comment on above: Result Comment: PERF ORMED BY: [place] [address] PATHOLOGIST [employer] PAZ GUILLERMO M.D. Performed By: #### B MP #### [address] GFR/1.73 sq M.predicted MDRD (S/P/Bld) [Vol rate/Area] mL/min/{1.73_m2} Normal [facility] Comment on above: Performed By: #### B MP #### [address] Glucose [Mass/Vol] 93 mg/dL Normal 70-100 [facility] Comment on above: Result Comment: [facility] Glucose Reference Range is dependent on time and content of last meal. Glucose of more than 200 mg/dL in a nonstressed, ambulatory subject supports the diagnosis of Diabetes Mellitus. ADA recommended reference range Performed By: #### B MP #### [address] Potassium [Moles/Vol] 3.7 mmol/L Normal 3.5-5.[address] [facility] Comment on above: Performed By: #### B MP #### [place] [address] [place] Sodium [Moles/Vol] 140 mmol/L Normal 136-145 [facility] Comment on above: Performed By: #### B MP #### [address] Urea nitrogen [Mass/Vol] 14 mg/dL Normal 7-[address] [facility] Comment on above: Performed By: #### B MP #### [place] [address] [place] Basophils Auto (Bld) [#/Vol] Ordered By: Cullen Christianson on 10-24-2024 Basophils (Bld) [#/Vol] Automated basophil count 0.0-0.2 [facility] Basophils/100 WBC Auto (Bld) Ordered By: Cullen Christianson on 10-24-2024 Basophils/100 WBC (Bld) Automated basophil % . [facility] Calcium [Mass/volume] in Ser um or PlasmaOrdered By: Cullen Christianson on 10-24-2024 Calcium [Mass/Vol] Calcium [Mass/volume ] in Serum or Plasma 8.6-10.3 [facility] Carbon dioxide, total [Moles /volume] in Serum or PlasmaOrdered By: Cullen Christianson on 10-24-2024 CO2 [Moles/Vol] Carbon dioxide, tota l [Moles/volume] in Serum or Plasma 21.0-31.0 [facility] Chloride [Moles/volume] in S jay or PlasmaOrdered By: Cullen Christianson on 10-24-2024 Chloride [Moles/Vol] Chloride [Moles/volume] in Serum or Plasma 98-107 [facility] Complete Blood Count Auto Di ffon 10-24-2024 Basophils (Bld) [#/Vol] 0.1 10*3/uL Normal 0.0-0.[address] [facility] Comment on above: Result Comment: PERF ORMED BY: [place] [address] PATHOLOGIST [employer] PAZ GUILLERMO M.D. Performed By: #### C BC #### [facility] [address] [place] [address] [place] Basophils/100 WBC (Bld) 1.1 % Normal . [facility] Comment on above: Performed By: #### C BC #### [facility] [address] [place] [address] [place] Eosinophils (Bld) [#/Vol] 0.2 10*3/uL Normal 0.0-0.[address] [facility] Comment on above: Performed By: #### C BC #### [place] [address] [place] Eosinophils/100 WBC (Bld) 3.7 % Normal . [facility] Comment on above: Performed By: #### C BC #### [address] Erythrocyte distribution width (RBC) [Ratio] 13.1 % Normal 11.9-15.[address] [facility] Comment on above: Performed By: #### C BC #### [address] Hematocrit (Bld) [Volume fraction] 37.9 % Normal 34.0-46.[address] [facility] Comment on above: Performed By: #### C BC #### [address] Hemoglobin (Bld) [Mass/Vol] 12.8 g/dL Normal 11.8-15.[address] [facility] Comment on above: Performed By: #### C BC #### [address] Lymphocytes (Bld) [#/Vol] 1.5 10*3/uL Normal 1.00-4.[address] [facility] Comment on above: Performed By: #### C BC #### [address] Lymphocytes/100 WBC (Bld) 29.9 % Normal . [facility] Comment on above: Performed By: #### C BC #### [address] MCH (RBC) [Entitic mass] 28.7 pg Normal 24.7-34.[address] [facility] Comment on above: Performed By: #### C BC #### [address] MCV (RBC) [Entitic vol] 85.1 fL Normal 80-[address] [facility] Comment on above: Performed By: #### C BC #### [address] Mean Corpuscular HGB Conc 33.8 g/dL Normal 32.0-35.[address] [facility] Comment on above: Performed By: #### C BC #### [address] [place] [address] [place] Monocytes (Bld) [#/Vol] 0.4 10*3/uL Normal 0.0-0.[address] [facility] Comment on above: Performed By: #### C BC #### [address] Monocytes/100 WBC (Bld) 7.8 % Normal . [facility] Comment on above: Performed By: #### C BC #### [address] Neutrophils (Bld) [#/Vol] 2.9 10*3/uL Normal 1.8-7.[address] [facility] Comment on above: Performed By: #### C BC #### [address] Neutrophils/100 WBC (Bld) 57.5 % Normal . [facility] Comment on above: Performed By: #### C BC #### [address] NRBC% 0.1 /100{WBC} Normal 0-0.5 [facility] Comment on above: Performed By: #### C BC #### [address] Platelet mean volume (Bld) [Entitic vol] 7.1 fL Normal 6.3-10.7 [facility] Comment on above: Performed By: #### C BC #### [place] [address] [place] Platelets (Bld) [#/Vol] 307 10*3/uL Normal 150-[address] [facility] Comment on above: Performed By: #### C BC #### [place] [address] [place] RBC (Bld) [#/Vol] 4.45 10*6/uL Normal 3.60-5.00 [facility] Comment on above: Performed By: #### C BC #### [address] WBC (Bld) [#/Vol] 5.0 10*3/uL Normal 3.8-11.6 [facility] Comment on above: Performed By: #### C #### [facility] [address] Creatinine [Mass/volume] in Serum or PlasmaOrdered By: Cullen Christianson on 10-24-2024 Creatinine [Mass/Vol] Creatinine [Mass/volume] in Serum or Plasma 0.60-1.20 [facility] Eosinophils Auto (Bld) [#/Vo l]Ordered By: Cullen Christianson on 10-24-2024 Eosinophils (Bld) [#/Vol] Automated eosinophil count 0.0-0.45 [facility] Eosinophils/100 WBC Auto (Bl d)Ordered By: Cullen Christianson on 10-24-2024 Eosinophils/100 WBC (Bld) Automated eosinophil % . [facility] Erythrocyte distribution wid th Auto (RBC) [Ratio]Ordered By: Cullen Christianson on 10-24-2024 Erythrocyte distribution width (RBC) [Ratio] Erythrocyte distribution width [Ratio] by Automated count 11.9-15.3 [facility] Glucose [Mass/volume] in Ser um or PlasmaOrdered By: Cullen Christianson 10-24-2024 Glucose [Mass/Vol] Glucose [Mass/volume ] in Serum or Plasma 70-100 [facility] Comment on above: ADA recommended refe rence rangeRandom Glucose Reference Range is dependent on time and content of last meal. Glucose of more than 200 mg/dL in a nonstressed, ambulatory subject supports the diagnosis of Diabetes Mellitus. Hematocrit Auto (Bld) [Volum e fraction]Ordered By: Cullen Christianson on 10-24-2024 Hematocrit (Bld) [Volume fraction] Hematocrit [Volume Fraction] of Blood by Automated count 34.0-46.4 [facility] Hemoglobin [Mass/volume] in BloodOrdered By: Cullen Christianson 10-24-2024 Hemoglobin (Bld) [Mass/Vol] Hemoglobin [Mass/volume] in Blood 11.8-15.4 [facility] Leukocytes [#/volume] correc herbert for nucleated erythrocytes in Blood by Automated counOrdered By: Cullen Christianson on 10-24-2024 WBC corrected for nucl RBC Auto (Bld) [#/Vol] Leukocytes [#/volume] corrected for nucleated erythrocytes in Blood by Automated coun 3.8-11.6 [facility] Lymphocytes Auto (Bld) [#/Vo l]Ordered By: Cullen Christianson on 10-24-2024 Lymphocytes (Bld) [#/Vol] Lymphocytes [#/volume] in Blood by Automated count 1.00-4.8 [facility] Lymphocytes/100 WBC Auto (Bl d)Ordered By: Cullen Christianson on 10-24-2024 Lymphocytes/100 WBC (Bld) Lymphocytes/100 leukocytes in Blood by Automated count . [facility] MCH Auto (RBC) [Entitic mass ]Ordered By: Cullen Christianson on 10-24-2024 MCH (RBC) [Entitic mass] MCH [Entitic mass] by Automated count 24.7-34.3 [facility] MCHC Auto (RBC) [Mass/Vol]Or dered By: Cullen Christianson on 10-24-2024 MCHC (RBC) [Mass/Vol] MCHC [Mass/volume] by Automated count 32.0-35.0 [facility] MCV Auto (RBC) [Entitic vol] Ordered By: Cullen Christianson on 10-24-2024 MCV (RBC) [Entitic vol] MCV [Entitic volume] by Automated count 80-100 [facility] Monocytes Auto (Bld) [#/Vol] Ordered By: Cullen Christianson on 10-24-2024 Monocytes (Bld) [#/Vol] Automated blood monocyte count 0.0-0.8 [facility] Monocytes/100 WBC Auto (Bld) Ordered By: Cullen Christianson on 10-24-2024 Monocytes/100 WBC (Bld) Automated monocyte % . [facility] Neutrophils Auto (Bld) [#/Vo l]Ordered By: Cullen Christianson on 10-24-2024 Neutrophils (Bld) [#/Vol] Neutrophils [#/volume] in Blood by Automated count 1.8-7.7 [facility] Neutrophils/100 WBC Auto (Bl d)Ordered By: Cullen Christianson on 10-24-2024 Neutrophils/100 WBC (Bld) Automated neutrophil % . [facility] No Panel InformationOrdered By: Cullen Christianson on 10-24-2024 Estimated GFR (CKD-EPI) > 60.0 mL/Min [facility] Creatinine Clearance (Chem 91.21 [facility] Nucleated erythrocytes [Pres ence] in Blood by Automated countOrdered By: Cullen Christianson on 10-24-2024 Nucleated RBC Auto Ql (Bld) Nucleated erythrocytes [Presence] in Blood by Automated count 0-0.5 [facility] Platelet mean volume Auto (B ld) [Entitic vol]Ordered By: Cullen Christianson on 10-24-2024 Platelet mean volume (Bld) [Entitic vol] Platelet mean volume [Entitic volume] in Blood by Automated count 6.3-10.7 [facility] Platelets Auto (Bld) [#/Vol] Ordered By: Cullen Christianson on 10-24-2024 Platelets (Bld) [#/Vol] Platelets [#/volume] in Blood by Automated count 150-450 [facility] Potassium [Moles/volume] in Serum or PlasmaOrdered By: Cullen Christianson on 10-24-2024 Potassium [Moles/Vol] Potassium [Moles/volume] in Serum or Plasma 3.5-5.1 [facility] RBC Auto (Bld) [#/Vol]Ordere d By: Cullen Christianson on 10-24-2024 RBC (Bld) [#/Vol] Erythrocytes [#/volume] in Blood by Automated count 3.60-5.00 [facility] Serum or plasma anion gap de terminationOrdered By: Cullen Christianson on 10-24-2024 Anion gap [Moles/Vol] Serum or plasma an ion gap determination 6.0-15.0 [facility] Sodium [Moles/volume] in Ser um or PlasmaOrdered By: Cullen Christianson on 10-24-2024 Sodium [Moles/Vol] Sodium [Moles/volume ] in Serum or Plasma 136-145 [facility] Urea nitrogen [Mass/volume] in Serum or PlasmaOrdered By: Cullen Christianson on 10-24-2024 Urea nitrogen [Mass/Vol] Urea nitrogen [Mass/volume] in Serum or Plasma 7-25 [facility] WBC Auto (Bld) [#/Vol]Ordere d By: Cullen Christianson on 10-24-2024 WBC (Bld) [#/Vol] Leukocytes [#/volume ] in Blood by Automated count 3.8-11.6 [facility] 10-23-2024 L -- ---- Specimen: [id number] Received: 10/24/24 Status: CASEY Pastrana Num: [id number] Spec Type: Surgical Subm Dr: Dipti Acevedo DO Tissues: A Vaginal mucosa-other than incidental (GRANULATION TISSUE) Procedures: Praneeth SOTELO/Nadja L4 ---- Age/ Patient Sex Location Account Attending Physician ---- Mary Leal 54/F [place] [id number] Dipti Acevedo, ---- SPEC NUM: [id number] RECD: 10/24/24 STATUS: CASEY PASTRANA NUM: [id number] BOAZ: 10/23/24- SUBM DR: Dipti Acevedo DO ENTERED: 10/24/[address] [facility] [address]: SPEC TYPE: Surgical DEPT: S ENTERED BY: [id number] RECV BY: [id number] ORDERED: HE, Gross/Micro L4 ORDERED: HE, Gross/Micro [...] submitted in a single cassette. (1, ns, [id number] A) LES ---- Specimen: [id number] Received: 10/24/24 Status: CASEY Pastrana Num: [id number] Spec Type: Surgical Subm Dr: Dipti Acevedo DO Tissues: A Vaginal mucosa-other than incidental (GRANULATION TISSUE) Procedures: ASHLEIGH Gross/Micro L4 ---- Patient: Mary Leal [id number] (Continued) ---- Specimen: [id number] Received: 10/24/24 (Continued) Signed (signature on file) iKara Velasco MD 10/26/24 1126 ---- Specimen: [id number] Received: 10/24/24 Status: CASEY Pastrana Num: [id number] Spec Type: Surgical Subm Dr: Dipti Acevedo, Tissues: A Vaginal mucosa-other than incidental (GRANULATION TISSUE) Procedures: Praneeth SOTELO/Nadja Fisher ---- Patient: Mary Leal [id number] (Continued) ---- Specimen: [id number] Received: 10/24/24 (Continued) Microscopic Description Microscopic examinations are performed supporting the above interpretation CPT Codes 87117 ---- ---- Specimen: [id number] Received: 10/24/24 Status: CASEY Pastrana Num: [id number] Spec Type: Surgical Subm Dr: Dipti Acevedo DO Tissues: A Vaginal mucosa-other than incidental (GRANULATION TISSUE) Procedures: Praneeth SOTELO/Nadja L4 ---- Patient: Mary Leal [id number] (Continued) ---- Signed (signature on file) Kiara Velasco MD 10/26/[address] [facility] MR cervical spine wo conon 1 12-11-2023 MR cervical spine wo con [facility] [place] [address] [place] [address] MRI Report Signed Patient: Mary Leal MR#: [id number] 863 : 1970 Acct:[id number] Age/Sex: 54 / F ADM Date: 10/10/24 Loc: [facility] Room: Type: [facility] Attending Dr: Anibal Medrano DO Copies [...] Howie Garcia M.D.10/10/2024 3:47 PM Dictation Location: [place] [address] Transcribed By: [facility] 10/10/24 1547 Dictated By: Howie Garcia II, MD 10/10/24 1543 Signed By: 10/10/[address] [facility] MR lumbar spine wo conon MR lumbar spine wo con [facility] [place] [address] MRI Report Signed Patient: Mary Leal MR#: [id number] [id number] : 1970 Acct:[id number] Age/Sex: 54 / F ADM Date: 10/10/24 Loc: [facility] Room: Type: [facility] Attending Dr: Monica IBARRA Copies to: [...] Howie Garcia M.D.10/10/2024 3:55 PM Dictation Location: [place] [address] Transcribed By: [facility] 10/10/24 1555 Dictated By: Howie Garcia II, MD 10/10/24 1547 Signed By: 10/10/[address] [facility] XR pre/post mri xrayon 10-10 XR pre/post mri xray [facility] [place] [address] [place] [address] XRay Report Signed Patient: Mary Leal MR#: [id number] 863 : 1970 Acct:[id number] Age/Sex: 54 / F ADM Date: 10/10/24 Loc: [facility] Room: Type: [facility] Attending Dr: Anibal Medrano DO Copies [...] Howie Garcia M.D.10/10/2024 3:58 PM Dictation Location: [place] [address] Transcribed By: [facility] 10/10/24 1558 Dictated By: Howie Garcia II, MD 10/10/24 1555 Signed By: 10/10/[address] [facility] Urinalysis macro (dipstick) panel (U)on 09-04-2024 Bilirubin, UA Negative Negative - 4(70) +++ mg/dL [facility] Blood, UA Negative Negative - 50 Devin/mcL [facility] Clarity, UA Clear [facility] Color, UA Yellow [facility] Glucose, UA Negative Negative - 2000(110) ++++ mg/dL [facility] Ketones, UA Negative Negative - 160(16) ++++ mg/dL [facility] Leukocytes, UA Negative Negative - 500+++ Aicha/mcL [facility] Nitrite, UA Negative Negative - Positive [facility] pH, UA 5 5 - 9 [facility] Protein, UA Negative Negative - 2000(20) ++++ mg/dL [facility] Spec Grav, UA 1.01 1 - 1.03 [facility] Urobilinogen, UA 0.2 0.2 - 12 mg/dL [facility] US ABDOMEN LIMITEDon 024 US ABDOMEN LIMITED [...] report is generated using voice recognition reporting (ezzai - how to arabia). On occasion [employer] erroneously drops words from the report or replaces the spoken word with similar sounding words. Please call with any questions/concerns regarding this report.* Dictated and transcribed 08/28/2024/tm This report has been electronically signed and approved by the interpreting radiologist. Electronically Signed Dipti Lockhart II, M.D. 2024-08-28 16:38:48 Normal Not Available Follow-Upon 07-26-2024 Follow-Up [id number] Darrian Leal 1970 F Date Provider Department Center 07/26/2024 ChiaraABBEPAULINE [facility] SLEEP [facility] No family history on file Level of Service:93254 OR OFFICE/OUTPATIENT ESTABLISHED MOD MDM 30 MIN Reason for Visit and Comments: Follow-up [872175] - Inspire initiation [facility] 36on 07-12-2024 36 Left voicemail askin g to reschedule Insp[facility] follow up appointment to 07/26 at 10:00 am. Normal [facility] Telephoneon 07-12-2024 Telephone [id number] Darrian Leal en 1970 F Date Provider Department [place] 07/12/2024 PAULINE SANTACRUZ [facility] SLEEP [facility] No family history on file Reason for Visit and Comments: Reschedule [019] [facility] 36on 06-17-2024 36 Rescheduled cancelle d Inspire follow up appointment for 06/26 at 9:00 am. [facility] 29on 04-28-2024 29 Encounter addended b y: Dick Mann MD on: 05/07/2024 7:26 PM Actions taken: Charge Capture section accepted [facility] Documentationon 04-17-2024 Documentation [id number] Darrian Leal en 1970 F Date [facility] 04/17/2024 27543-HKQXRADHA STARK [facility] No family history on file [facility] Letter (Out)on 04-17-2024 Letter (Out) [id number] Darrian Leal en 1970 Date [facility] Department [place] 04/17/202412100-KOKURADHA CASTREJON [facility] No family history on file [facility] DIAGNOSTIC UPPER ENDOSCOPYon 04-12-2024 [facility] Patient Name: Mary Leal Procedure Date: 04/12/2024 11:46 AM Date of : 1970 Admit Type: Outpatient Age: 53 Room: [facility] 3 Gender: Female Note Status: Finalized Attending MD: Milagros Franco MD, PHD, [id number] Procedure: Upper GI endoscopy Attending Participation: I personally performed the entire procedure. Indications: Dysphagia, Heartburn Providers: Milagros Franco MD, PHD (Doctor), Stacie Johns RN (Nurse), Nawaf Pinzon Coater Operator Insulation Board (Coater Operator Insulation Board), Everett Maria APRN-BECCA (Anesthesia Staff) Referring MD: [...] verified by the physician, the nurse, the navy airspace officer and the metrology technician in the procedure room. Mental Status [...] oxygen saturations were monitored continuously. The Endoscope ([id number]) was introduced through the mouth, and advanced [...] content not included)... LAB, [facility] Radiology Study observation (narrative) [facility] SURG PATH REQUESTon 04-12-20 24 Case Report [facility] Comment on above: Result Comment: Surg ical Pathology Report Case: [id number] Authorizing Provider: Milagros Franco MD, Collected: 04/12/2024 12:48 PM PhD Ordering Location: Endoscopy Outpatient Care Received: 04/12/2024 12:57 PM [facility]ologist: Manish Tom MD Specimens: A) - TISSUE, gastric biopsy r/o HP evaluate for eosiniphils (large forceps) B) - TISSUE, GE Junction r/o Barrets (large forceps) Performed By: #### S URGP #### [facility] (DEFAULT) [address] [place] [address] Clinical History Preop Diagnosis: [place] Grade D esophagitis [K20.80]. Early satiety [R68.81]. Unintentional weight loss [R63.4]. Gastroparesis [K31.84]. Medical History: Gastroesophageal reflux disease. Asthma. Benign essential hypertension. History of colectomy. Gastroparesis. Arthritis. Depression. Migraine. Constipation. Normal [facility] Comment on above: Performed By: #### S URGP #### [facility] (DEFAULT) [address] [place] [address] Gross Description Normal [facility] Comment on above: Result Comment: The [...] dimension. TE 1 Lab Use Only: JobID [id number] Grosser for this case was: Adriana Hiren Performed By: #### S URGP #### [facility] (DEFAULT) [address] [address] Microscopic Description A microscopic examination was performed. [facility] Comment on above: Performed By: #### S URGP #### [facility] (DEFAULT) [address] [place] [address] Pathologic Diagnosis [facility] Comment on above: Result Comment: A. S tomach, biopsy: Active erosive esophagitis. No Helicobacter pylori organisms identified. B. GE junction, biopsy: Gastroesophageal squamocolumnar junctional mucosa with reflux pattern of injury. No Vega's specialized columnar epithelium (intestinal metaplasia) identified. Performed By: #### S URGP #### [facility] (DEFAULT) [address] [place] [address] Professional Interpretation Performed at: [facility] Comment on above: Result Comment: [facility] For Immediate Release to [facility] Yes [address] [place] [address] Performed By: #### S URGP #### [facility] (DEFAULT) [address] [address] 36on 04-10-2024 36 Left voicemail to [facility] to schedule Inspire follow up appointment following sleep study on 04/28. Offered 06/05 at 8:30 am or 4:00 pm OR 06/12 at 8:30 am. [facility] Telephoneon 04-10-2024 Telephone [id number] Darrian Leal en 1970 Date Provider Department [place] 04/10/2024 PAULINE SANTACRUZ [facility] SLEEP [facility] No family history on file Reason for Visit and Comments: Appointment [375] [facility] Follow-Upon 04-03-2024 Follow-Up [id number] Darrian Leal en 1970 F Date Provider Department Center 04/03/2024 PAULINE SANTACRUZ [facility] SLEEP [facility] No family history on file Level of Service:79801 OR OFFICE/OUTPATIENT ESTABLISHED MOD MDM 30 MIN Reason for Visit and Comments: Follow-up [514502] - Pt has the Inspire and is here for a follow up. She states it is unbelievable how well it is working for her. She is sleeping through the night, which she hasn't done for years. She is here for a few small adjustments, such as moving it from 6 hours of sleep a night to 8. Normal [facility] AND ELECTRONIC DIFFon Basophils (Bld) [#/Vol] 0.04 10*3/uL Normal 0.00-0.[address] [facility] Comment on above: Performed By: #### L AB980 #### [facility] (DEFAULT) [address] [address] Basophils/100 WBC (Bld) 0.6 % Normal [facility] Comment on above: Performed By: #### L AB980 #### [facility] (DEFAULT) [address] [address] DIFF STATUS Electronic Differential Normal [facility] Comment on above: Performed By: #### L AB980 #### [facility] (DEFAULT) [address] [address] Eosinophils (Bld) [#/Vol] 0.08 10*3/uL Normal 0.00-0.[address] [facility] Comment on above: Performed By: #### L AB980 #### U [facility] (DEFAULT) [address] [address] Eosinophils/100 WBC (Bld) 1.2 % Normal [facility] Comment on above: Performed By: #### L AB980 #### [facility] (DEFAULT) [address] [address] Hematocrit (Bld) [Volume fraction] 40.1 % Normal 34.9-44.[address] [facility] Comment on above: Performed By: #### L AB980 #### U [facility] (DEFAULT) [address] [place] [address] Hemoglobin (Bld) [Mass/Vol] 12.6 g/dL Normal 11.4-15.[address] [facility] Comment on above: Performed By: #### L AB980 #### U [facility] (DEFAULT) [address] [address] Immature Grans % 0.5 % Normal [facility] Comment on above: Performed By: #### L AB980 #### [facility] (DEFAULT) [address] [place] [address] Immature Grans Absolute < Normal <=0.[address] [facility] Comment on above: Performed By: #### L AB980 #### [facility] (DEFAULT) [address] [place] [address] Lymphocytes (Bld) [#/Vol] 2.05 10*3/uL Normal 1.16-3.[address] [facility] Comment on above: Performed By: #### L AB980 #### [facility] (DEFAULT) [address] [address] Lymphocytes/100 WBC (Bld) 31.6 % Normal [facility] Comment on above: Performed By: #### L AB980 #### [facility] (DEFAULT) [address] [address] MCV (RBC) [Entitic vol] 86.6 fL Normal 79.6-97.[address] [facility] Comment on above: Performed By: #### L AB980 #### [facility] (DEFAULT) [address] [address] Mean Cell Hgb 27.2 pg Normal 25.9-33.[address] [facility] Comment on above: Performed By: #### L AB980 #### [facility] (DEFAULT) [address] [address] Mean Cell Hgb Conc 31.4 g/dL Normal 31.4-35.9 [facility] Comment on above: Performed By: #### L AB980 #### [facility] (DEFAULT) [address] [place] [address] Monocytes (Bld) [#/Vol] 0.47 10*3/uL Normal 0.22-0.[address] [facility] Comment on above: Performed By: #### L AB980 #### [facility] (DEFAULT) [address] [place] [address] Monocytes/100 WBC (Bld) 7.3 % Normal [facility] Comment on above: Performed By: #### L AB980 #### [facility] (DEFAULT) [address] [address] Nucleated RBC 0.0 /100 WBC Normal <=0.2 [facility] Comment on above: Performed By: #### L AB980 #### [facility] (DEFAULT) [address] [address] Platelet mean volume (Bld) [Entitic vol] 9.3 fL Normal 8.5-12.[address] [facility] Comment on above: Performed By: #### L AB980 #### [facility] (DEFAULT) [address] [place] [address] Platelets (Bld) [#/Vol] 370 10*3/uL Normal 150-[address] [facility] Comment on above: Performed By: #### L AB980 #### [facility] (DEFAULT) [address] [place] [address] RBC (Bld) [#/Vol] 4.63 10*6/uL Normal 3.91-5.[address] [facility] Comment on above: Performed By: #### L AB980 #### [facility] (DEFAULT) [address] [address] RBC Distribution 14.0 % Normal 10.8-14.9 [facility] Comment on above: Performed By: #### L AB980 #### [facility] (DEFAULT) [address] [place] [address] Segs + Bands Auto 58.8 % Normal [facility] Comment on above: Performed By: #### L AB980 #### [facility] (DEFAULT) [address] [place] [address] Segs + Bands,Absolute Auto 3.81 K/uL Normal 1.64-7.[address] [facility] Comment on above: Performed By: #### L AB980 #### [facility] (DEFAULT) [address] [place] [address] WBC (Bld) [#/Vol] 6.48 10*3/uL Normal 3.99-11.[address] [facility] Comment on above: Performed By: #### L AB980 #### [facility] (DEFAULT) [address] [place] [address] FERRITINon 03-06-2024 Ferritin [Mass/Vol] 9.1 ng/mL Normal 7.3-270.[address] [facility] Comment on above: Performed By: #### F ERIB, TSHQR #### [facility] (DEFAULT) [address] [address] HEPATIC FUNCTION PANELon Albumin [Mass/Vol] 4.3 g/dL Normal 3.5-5.0 [facility] Comment on above: Performed By: #### H PAULO, IRBC #### [facility] (DEFAULT) [address] [place] [address] ALP [Catalytic activity/Vol] 87 U/L Normal 32-[address] [facility] Comment on above: Performed By: #### H PAULO, IRBC #### [facility] (DEFAULT) [address] [address] ALT [Catalytic activity/Vol] 28 U/L Normal 9-[address] [facility] Comment on above: Performed By: #### H PAULO, IRBC #### [facility] (DEFAULT) [address] [place] [address] AST [Catalytic activity/Vol] 27 U/L Normal 10-[address] [facility] Comment on above: Performed By: #### H PAULO, IRBC #### [facility] (DEFAULT) [address] [place] [address] Bilirubin [Mass/Vol] 0.4 mg/dL Normal <1.[address] [facility] Comment on above: Performed By: #### H PAULO, IRBC #### [facility] (DEFAULT) [address] [place] [address] Bilirubin.indirect [Mass/Vol] 0.1 mg/dL Normal <0.[address] [facility] Comment on above: Performed By: #### H PAULO, IRBC #### [facility] (DEFAULT) [address] [place] [address] Protein [Mass/Vol] 6.9 g/dL Normal 6.4-8.3 [facility] Comment on above: Performed By: #### H PAULO, IRBC #### [facility] (DEFAULT) [address] [place] [address] IRON/IRON BINDING/TRANSFERRI Non 03-06-2024 Iron [Mass/Vol] 55 ug/dL Normal 40-174 [facility] Comment on above: Performed By: #### H PAULO, IRBC #### [facility] (DEFAULT) [address] [place] [address] Iron Saturation 13 % Low 20-55 [facility] Comment on above: Performed By: #### H PAULO, IRBC #### U [facility] (DEFAULT) [address] [place] [address] Total Iron Binding Capacity 440 mcg/dL High 250-[address] [facility] Comment on above: Performed By: #### H PAULO, IRBC #### U [facility] (DEFAULT) [address] [place] [address] Transferrin [Mass/Vol] 352 mg/dL Normal 200-[address] [facility] Comment on above: Performed By: #### H , IRBC #### [facility] (DEFAULT) [address] [address] MOLECULAR STOOL PARASITE GUEVARA Cindy 03-06-2024 Cryptosporidium Parvum/Hominis By Pcr Negative Normal Negative [facility] Comment on above: Order Comment: Colle [...] Performed By: #### S CPBP #### [facility] (DEFAULT) [address] [address] Entamoeba Histolytica By Pcr Negative Normal Negative [facility] Comment on above: Order Comment: Colle [...] Performed By: #### S CPBP #### [facility] (DEFAULT) [address] [address] Giardia Lamblia By Pcr Negative Normal Negative [facility] Comment on above: Order Comment: Colle [...] Performed By: #### S CPBP #### [facility] (DEFAULT) [address] [address] TSH W/FT4 REFLEXon 4 TSH 1.986 uIU/mL Normal 0.550-4.[address] [facility] Comment on above: Performed By: #### F ERIB, TSHQR #### [facility] (DEFAULT) [address] [address] VITAMIN D (25-HYDROXY,TOTAL) on 03-06-2024 25-OH Vitamin D Total 22.2 ng/mL Low 30.0-100.0 [facility] Comment on above: Order Comment: Vitam in D values have been shown to be falsely decreased in lipemic samples and should be interpreted with caution. Result Comment: <10 Deficiency 10-29 Insufficiency 30-100 Optimal Level >100 Possible Toxicity Performed By: #### D 25OH #### [facility] (DEFAULT) [address] [address] BACTERIAL VAGINOSIS NAATon 0 02-27-2024 Interpretation and review of laboratory results Normal [facility] Lactobacillus crispatus+gasseri+riri senii + Gardnerella vaginalis + Atopobium vaginae rRNA JOSÉ MIGUEL+probe Ql (Vag fld) Negative Negative for bacterial vaginosis [facility] Lactobacillus crispatus+gasseri+riri senii + Gardnerella vaginalis + Atopobium vaginae rRNA JOSÉ MIGUEL+probe Ql (Vag fld) Negative Normal Negative for bacterial vaginosis [facility] Comment on above: Order Comment: Speci men Type: SWABOrdering Facility: [facility] Address: [address] [place] [address] Performed By: #### B VAMP, CVTV ####[facility] LABCLIA [id number] [place] [address] [place] BETY/TRICHOMONAS NAATon 0 02-27-2024 C. glabrata RNA JOSÉ MIGUEL+probe Ql (Vag fld) Negative Negative for Bety glabrata [facility] Bety sp DNA JOSÉ MIGUEL+probe Ql (Vag fld) Negative Negative for Bety species [facility] Interpretation and review of laboratory results Normal [facility] T. vaginalis DNA JOSÉ MIGUEL+probe Ql (Unsp spec) Negative Negative for Trichomonas vaginalis by amplification [facility] C. glabrata RNA JOSÉ MIGUEL+probe Ql (Vag fld) Negative Normal Negative for Bety glabrata [facility] Comment on above: Order Comment: Speci men Type: SWABOrdering Facility: [facility] Address: [address] [place] [address] Performed By: #### B VAMP, CVTV ####[facility] LABCLIA [id number] [place] [address] [place] Bety sp DNA JOSÉ MIGUEL+probe Ql (Vag fld) Negative Normal Negative for Bety species [facility] Comment on above: Order Comment: Speci men Type: SWABOrdering Facility: [facility] Address: [address] [place] [address] Performed By: #### B VAMP, CVTV ####[facility] LABCLIA [id number] [place] [address] [place] T. vaginalis DNA JOSÉ MIGUEL+probe Ql (Unsp spec) Negative Normal Negative for Trichomonas vaginalis by amplification [facility] Comment on above: Order Comment: Speci men Type: SWABOrdering Facility: [facility] Address: [address] [place] [address] Performed By: #### B VAMP, CVTV ####[facility] LABCLIA [id number] [place] [address] [place] CNOVon 02-27-2024 CNOV Office Visit (SHERON ) MARY LEAL ([id number]) 1970 F Date Time Provider Department 02/27/24 [...] intermittently- somewhat improved. She has worked with [employer] rep re: interstim setting, now on program [...] you received about pain medications helpful? Yes Emergency Medical Technician Basic offered:Patient declines OBJECTIVE: BP 146/93 Pulse 62 [...] Clear 4 (more content not included)... Normal [facility] UA DIP, URINE (POC)on 2023 BILIRUBIN UA (POCT) Negative Negative [facility] CLARITY UA (POCT) Clear [facility] COLOR UA ([facility]CT) Yellow [facility] GLUCOSE UA (POCT) Negative Negative mg/dL [facility] Hemoglobin Ql (U) Negative Negative [facility] KETONE UA (POCT) Negative Negative mg/dL [facility] LEUKOCYTES UA (POCT) Negative Negative [facility] NITRITE UA (POCT) Negative Negative [facility] PH UA (POCT) 5.5 4.5 - 8.0 [facility] Protein Ql (U) Negative Negative mg/dL [facility] SPECIFIC GRAVITY UA (POCT) >=1.030 1.005 - 1.030 [facility] UROBILINOGEN UA (POCT) 0.2 Normal E.U./dL [facility] Location:[facility], [address] [place] [address], [address] [place] [address] POINT OF CARE [facility] 29on 02-07-2024 29 Addended by: NATHANAEL MENDOZA on: 02/07/2024 12:01 PM Modules accepted: Orders [facility] Follow-Upon 02-07-2024 Follow-Up [id number] Darrian Leal 1970 F Date Provider Department Center 02/07/2024 PAULINE SANTACRUZ [facility] SLEEP [facility] No family history on file Level of Service:63714 OR OFFICE/OUTPATIENT ESTABLISHED HIGH MDM 40 MIN Reason for Visit and Comments: Follow-up [683668] - Pt is here to activate her Inspire PAP. [facility] Hussain 01-27-2024 KWESIN Telephone (GYNMN) MARY LEAL ([id number]) 1970 F Date Time Provider Department 01/27/24 RADHA DUNHAM GYNMN During your visit today, we recorded the following information about you: Radha Dunham MD 01/27/2024 10:54 AM Signed Editorial Manager Resident Telephone Encounter 01/27/2024 10:44 AM [...] pain. Informed patient she can call her [employer] rep Monday. Will send telephone encounter to [...] Discussed with Dr. Mullins, Urogyn fellow physician printed circuit boards contact printer. Radha Dunham MD Obstetrics and Gynecology, PGY1 [...] PM Signed Received fax regarding letter from [employer] stating that on 01/29/24 the patient reported that they felt a zapping sensation in their rectal nerve . Asking that provider answer questions listed on document. Document scanned into [employer]. Kelli Seth Sandra K, RN 03/15/2024 11:27 AM Signed Called pt. Verified name/ Verified requested information and form faxed to [employer] @ [phone] Lili Matias RN March 15, 2024 11:27 [...] idiopathic cons (more content not included)... Normal [facility] ANES POSTPROC EVALon 024 ANES POSTPROC EVAL HNO ID: [id number] Author: BONI MURILLO MD Service: ? Author Type: Anesthesiologist Type: Anesthesia Postprocedure Evaluation Filed: 01/26/2024 09:51 Note Text: POST ANESTHESIA EVALUATION NOTE : 1970 Procedure Summary Date: 01/26/24 Room / Location: [address] [facility] Anesthesia Start: 727 Anesthesia [...] January 26, 2024 TIME: 9:51 AM CSN: [id number] Normal [facility] ANES PRE-OPon 01-26-2024 ANES PRE-OP HNO ID: [id number] Author: BONI MURILLO MD Service: ? Author [...] January 26, 2024 TIME: 7:06 AM CSN: [id number] Normal [facility] BRIEF OP NOTon 01-26-2024 BRIEF OP NOT HNO ID: [id number] Author: SOFIYA MULLINS MD Service: Urogynecology Author Type: Fellow Type: Brief Op Note Filed: 01/26/2024 08:44 Note Text: BRIEF OPERATIVE / PROCEDURE NOTE LOG ID: [id number] Surgery/Procedure Date: 01/26/2024 Incision/Procedure Start Time: 7:54 AM Incision Close/Procedure End Time: 8:36 AM Surgeon(s)/Procedurali st(s) and Veterinarian Poultry(s): Surgeon(s) and Role: * Pam Wang MD [...] Implant Name Type Inv. Item Serial No. Photographic Equipment Mechanic Lot No. LRB No. Used Action LEAD INTRSTIM MRI 28CM - [id number] Lead LEAD INTRSTIM MRI 28CM [employer] [id number] Left 1 Implanted INTERSTIM X RECHARGE FREE NEUROSTIMULATOR - [id number] Stimulator INTERSTIM X RECHARGE FREE NEUROSTIMULATOR [id number] [employer] Left 1 Implanted Pre-Op/Pre-Procedure Diagnosis: urinary retention, urgency, frequency and nocturia Post-Op/Post-Procedure Diagnosis: same SIGNATURE: Sofiya Mullins MD DATE: January 26, 2024 PATIENT NAME: Mary Leal TIME: 8:42 AM PAGER/CONTACT #: Pager [phone] [facility] HISTORY PHYSICALon HISTORY PHYSICAL HNO ID: [id number] Author: SOFIYA MULLINS MD Service: Urogynecology Author Type: Fellow Type: H&P Filed: 01/26/2024 06:59 Note Text: HISTORY AND PHYSICAL EXAMINATION SERVICE DATE: 01/26/2024 SERVICE TIME: 6:56 AM PRIMARY CARE PHYSICIAN: Eliceo Gómez DO, Subjective CHIEF COMPLAINT: urinary retention, urgency, frequency, [...] VTE Prophylaxis/An (more content not included)... Normal [facility] NURSING PROGon 01-26-2024 NURSING PROG HNO ID: [id number] Author: DAI CAMPUZANO RN Service: Nursing Author Type: Registered Nurse Type: Nursing Progress Note Filed: 01/26/2024 09:51 Note Text: 0923 Paged PACU Resident 2-30 Elvis- Could you please place an order for a one time dose of her homegoing oxycodone prescription? Dai GAMBINO [phone] Paged PACU Resident 2-30 Elvis- Could you please place an order for a one time dose of her homegoing oxycodone prescription? Dai GAMBINO [id number] Normal [facility] NURSING PROG HNO ID: [id number] Author: CATRACHO PIERRE RN Service: ? Author Type: Registered Nurse Type: Nursing Progress Note Filed: 01/26/2024 06:41 Note Text: Nursing Progress Note Topic of Note: Daily Note PATIENT NAME: Mary Leal Patient Location: Main - Periop OR/Main - Periop OR Room: Main - Periop OR ([id number]) PAGE SENT: Akiko Wang and Resident specialty finishing utility person-Pt in [id number] Mary Leal will need informed consent and H AND P for surgery this morning. Thanks, Catracho [id number] This note was completed by: Catracho Pierre [facility] OPERATIVE NOon 01-26-2024 OPERATIVE NO HNO ID: [id number] Author: PAM WANG MD Service: Urogynecology Author Type: Physician Type: Operative Report Filed: 01/29/2024 10:50 Note Text: OPERATIVE/PROCEDURE REPORT LOG ID: [id number] Surgery/Procedure Date: 01/26/2024 Incision/Procedure Start Time: 7:54 AM Incision Close/Procedure End Time: 8:36 AM Surgeon(s)/Procedurali st(s) and Veterinarian Poultry(s): Surgeon(s) and Role: * Pam Wang MD [...] Implant Name Type Inv. Item Serial No. Photographic Equipment Mechanic Lot No. LRB No. Used Action LEAD INTRSTIM MRI 28CM - [id number] Lead LEAD INTRSTIM MRI 28CM [employer] [id number] Left 1 Implanted INTERSTIM X RECHARGE FREE NEUROSTIMULATOR - [id number] Stimulator INTERSTIM X RECHARGE FREE NEUROSTIMULATOR [id number] [employer] Left 1 Implanted Pre-Op/Pre-Procedure Diagnosis: [...] the S3 foramen until the marker was mcc through the bone. The sacral lead was [...] and impedances (more content not included)... Normal [facility] HISTORY PHYSICALon HISTORY PHYSICAL HNO ID: [id number] Author: MAX MARROQUIN PA-C Service: ? Author Type: Physician Veterinarian Poultry Type: H&P Filed: 01/25/2024 09:25 Note Text: PREANESTHESIA CONSULT CLINIC TELEHEALTH VISIT SERVICE DATE: 01/25/2024 SERVICE TIME: 9:02 AM Patient has been identified by name and date of : Yes Reason for contact: PACC visit Accompanied by: Self This is a virtual visit using [employer] Video Visit. It required patient-provider interaction for the medical decision making as documented below. I have communicated my name and active licensure. The patient's identity and physical location were verified at the time of this visit. Either the patient or their legal group sales representative has been informed of the [...] using inspire to get activated 02/07/2024 ) [id number] Score: Age: <65 Sex: female CHF history: No Hypertension history: Yes Stroke/TIA/thromboembo lism history: No Vascular disease history: No Diabetes history: No [id number] Score: 2 ANESTHESIA FINDINGS: Intubation History: No [...] PAST SURGICAL HIST (more content not included)... [facility] 12-25-2023 CNPN Telephone (GYNMN) MARY LEAL ([id number]) 1970 F Date Time Provider Department 12/25/23 PAM WANG GYNPR During your visit today, we recorded the following information about you: [facility] 12/25/2023 2:54 PM Signed Reason for call: [...] distance health visit in this department: 10/25/2021 Gate Clerk, Nurse Next visit in this department: [...] - Fully Assessed Reason for Visit: Question [3257] Prescriptions as of 12/25/2023 - ARIPiprazole monohydrate [...] Encounter Status:Closed by STACIE GONZALEZ on 12/25/23 [facility] Basic Metabolic Panelon 12-07 Anion gap [Moles/Vol] 6 mmol/L 5 - 15 mmol/L [facility] Calcium [Mass/Vol] 9.3 mg/dL 8.5 - 10. 5 mg/dL [facility] Chloride [Moles/Vol] 105 mmol/L 98 - 10 9 mmol/L [facility] CO2 [Moles/Vol] 28 mmol/L 22 - 32 mmol/L [facility] Creatinine [Mass/Vol] 0.60 mg/dL 0.40 - 1.00 mg/dL [facility] Comment on above: METHOD TRACEABLE TO IDMS STANDARD eGFR (CKD-EPI)non-race dependent - PINF [facility] Comment on above: Reported eGFR is based on the CKD-EPI 2020 equation that does not use a race coefficient. Glucose [Mass/Vol] 85 mg/dL 65 - 99 mg/dL [facility] Potassium [Moles/Vol] 4.2 mmol/L 3.5 - 5.0 mmol/L [facility] Sodium [Moles/Vol] 139 mmol/L 134 - 146 mmol/L [facility] Urea nitrogen [Mass/Vol] 14 mg/dL 5 - 23 mg/dL [facility] 11-27-2023 CNPN Telephone (WCTRMN) MARY LEAL ([id number]) 1970 F Date Time Provider Department 11/27/23 PAM WANG WCTRMN During your visit today, we recorded the following information about you: Amber Trimble 11/27/2023 9:32 AM Signed Patient: Mary Leal : 1970 Provider: Pam Wang MD Caller Phone #: [phone] (home) [phone] (cell) Reason for call: boyfriend pulled out bladder stimulator. Has log of 6 days of usage. Would like a call. Message routed to nurse triage Date of next visit: MEREDITH: 08/04/2021 Lex Vieyra RN 11/27/2023 10:18 AM Signed [facility] 11/21/2023: Procedure to be performed: Peripheral Nerve Evaluation (PNE) Indication: Urinary frequency, urinary urgency, overactive bladder The patient tolerated the procedure well. We will see how she does over the next week and plan for interstim stages 1/2 in the OR. MD Mary Delcid reports the PNE stimulator stopped connecting so Kim of [employer] said to remove it. She removed the [...] urge [N39.41] Order(s):SURGICAL REQUEST - ELECTIVE (06/2020) [[id number]] Order #: [id number]: 1 Prescriptions as of 11/27/2023 - ARIPiprazole [...] Status:Closed by PAM WANG on 11/27/23 Primitivo [facility] Hussain 11-25-2023 MARIAN Telephone (GYNMN) MARY LEAL ([id number]) 1970 F Date Time Provider Department 11/25/23 RADHA DUNHAM During your visit today, we recorded the following information about you: Radha Dunham MD 11/25/2023 2:43 PM Signed Editorial Manager Resident Telephone Encounter 11/25/2023 2:40 PM [...] adequately. Discussed with Dr. Mullins, Urogyn fellow printed circuit boards contact printer. Radha Dunham MD Obstetrics and Gynecology, PGY1 Allergies As of Date: 11/25/2023 Noted Allergy Reaction RISPERIDONE 07/27/2021 5 - Intolerance Comments: Breast discharge POISON BRENDA EXTRACT 04/06/2023 2 - Rash Date Reviewed: 10/10/2023 Reviewed by: José Luis Thorpe, MAKI - Fully Assessed Reason for Visit: Patient Question [3078] Prescriptions as of 11/25/2023 - ARIPiprazole monohydrate [...] Encounter Status:Closed by RADHA DUNHAM on 11/25/23 [facility] CNOVon 11-21-2023 CNOV Office Visit (GUMAIN ) MARY LEAL ([id number]) 1970 F Date Time Provider Department 11/21/23 [...] Voiding dysfunction [N39.8] Order(s):UA DIP, URINE (POC) [[id number]] Order #: [id number]. #:[id number] [] ondansetron orally disintegrating 4 mg tab(s) [...] (GAS RE (more content not included)... Normal [facility] CNOVon 10-10-2023 CNOV Office Visit (SHERON ) MARY LEAL ([id number]) 1970 F Date Time Provider Department 10/10/23 [...] PFSH obtained by others. Pam Wang MD Emergency Medical Technician Basic offered: Patient declines. OBJECTIVE: BP 102/60 General: [...] would like to move forward with PNE. Plyce packet given to patient today to review. [...] which included preparing to see the patient, [id number] patient care, completing clinical (more content not included)... Normal [facility] CNPNon 09-12-2023 CNPN Telephone (WHQ) MARY LEAL ([id number]) 1970 F Date Time Provider Department 09/12/23 [...] which included preparing to see the patient, [id number] patient care, completing clinical documentation, obtaining and/or [...] Office will call to schedule cystoscopy. Urogynecology [facility] Main provided: Pam Wang Staff Physician, [...] Diagnosis:History of suburethral sling procedure [Z98.890] Order(s):CYSTOSCOPY [facility] [[id number]] Order #: [id number] Prescriptions as of 09/12/2023 - atenolol (TENORMIN) [...] Take 1,000 (more content not included)... Normal [facility] CNOVon 09-11-2023 CNOV Office Visit (UROSMN ) MARY LEAL ([id number]) 1970 F Date Time Provider Department 09/11/23 [...] Jenifer Barry RN 09/11/2023 11:37 AM Signed [facility] URODYNAMICS LAB [...] allergy: No Females- Is patient : No Emergency Medical Technician Basic offered:Patient declines B/O UA: YES DIP: UROFLOWMETRY [...] Jairon Lai MD 09/11/2023 1:18 PM Signed [facility] C[facility] FOR [...] Jairon Lai MD Referring Provider: PAM WANG [[id number]] Allergies As of Date: 09/11/2023 Noted Allergy [...] milliliters subcut (more content not included)... Normal [facility] BASIC METABOLIC PANELon 10-0 Anion gap [Moles/Vol] 1 mmol/L Low 8-12 [facility] Comment on above: Performed By: #### 4 [id number], [id number], [id number], [id number] #### [address] [place] [address] [facility] Calcium [Mass/Vol] 9.2 mg/dL Normal 8.4-10.4 [facility] Comment on above: Performed By: #### 4 [id number], [id number], [id number], [id number] #### [address] [place] [address] [place] Chloride [Moles/Vol] 105 mmol/L Normal 96-109 [facility] Comment on above: Performed By: #### 4 [id number], 60047536, [id number], [id number] #### [address] [place] [address] [place] CO2 [Moles/Vol] 32 mmol/L High 22-30 [facility] Comment on above: Performed By: #### 4 [id number], [id number], [id number], [id number] #### [address] [place] [address] [place] Creatinine [Mass/Vol] 0.67 mg/dL Normal 0.52-1.04 [facility] Comment on above: Performed By: #### 4 [id number], [id number], [id number], [id number] #### [address] [place] [address] [place] GLOMERULAR FILTRATION RATE ML/MIN/1.73 SQ M.PREDICTED >90.0 Normal >=60.0 [facility] Comment on above: Result Comment: [...] Kidney Int Suppl.2013;3:1-150 Performed By: #### 4 [id number], [id number], [id number], [id number] #### [address] Glucose [Mass/Vol] 104 mg/dL High 65-100 [facility] Comment on above: Performed By: #### 4 [id number], [id number], [id number], [id number] #### [address] [place] [address] Potassium [Moles/Vol] 4.6 mmol/L Normal 3.6-5.1 [facility] Comment on above: Performed By: #### 4 8658806, [id number], [id number], [id number] #### [address] [place], [place] [address] Sodium [Moles/Vol] 138 mmol/L Normal 135-147 [facility] Comment on above: Performed By: #### 4 1054965, 86132122, 17296156, [id number] #### [address] Urea nitrogen [Mass/Vol] 16 mg/dL Normal 8-26 [facility] Comment on above: Performed By: #### 4 1200447, [id number], [id number], [id number] #### [address] [place] [address] Basic metabolic panel aka Ch em 8on 08-12-2023 Anion gap [Moles/Vol] 1 mmol/L Low 8 - 12 mmol/L [facility] Calcium [Mass/Vol] 9.2 mg/dL 8.4 - 10. 4 mg/dL [facility] Calcium hydrogen phosphate dihydrate crystals LM Ql (Urine sed) 16 mg/dL 8 - 26 mg/dL [facility] Chloride [Moles/Vol] 105 mmol/L 96 - 10 9 mmol/L [facility] CO2 (BldMV) [Moles/Vol] 32 mmol/L High 22 - 30 mmol/L [facility] Creatinine [Mass/Vol] 0.67 mg/dL 0.52 - 1.04 mg/dL [facility] GFR/1.73 sq M.predicted MDRD (S/P/Bld) [Vol rate/Area] - PINF [facility] Comment on above: eGFR calculation [...] 104 mg/dL High 65 - 100 mg/dL [facility] [employer] [facility] Interpretation and review of laboratory results Abnormal [facility] Potassium [Moles/Vol] 4.6 mmol/L 3.6 - 5.1 mmol/L [facility] Sodium [Moles/Vol] 138 mmol/L 135 - 147 mmol/L [facility] CBC AND DIFFERENTIALon 08-12 ABSOLUTE BASOPHIL 0.0 x10*3/uL Normal 0.0-0.1 [facility] Comment on above: Performed By: #### 4 [id number] #### [address] ABSOLUTE EOSINOPHIL 0.1 x10*3/uL Normal 0.1-0.3 [facility] Comment on above: Performed By: #### 4 [id number] #### [address] ABSOLUTE IMMATURE GRANULOCYTES 0.0 x10*3/uL Normal 0.0-0.1 [facility] Comment on above: Performed By: #### 4 [id number] #### [address] ABSOLUTE LYMPH 1.6 x10*3/uL Normal 1.2-3.3 [facility] Comment on above: Performed By: #### 4 [id number] #### [address] ABSOLUTE MONO 0.3 x10*3/uL Normal 0.2-0.6 [facility] Comment on above: Performed By: #### 4 [id number] #### [address] ABSOLUTE NEUTROPHIL 3.1 x10*3/uL Normal 2.4-6.6 [facility] Comment on above: Performed By: #### 4 [id number] #### [address] Basophils/100 WBC (Bld) 0.8 % Normal [facility] Comment on above: Performed By: #### 4 [id number] #### [address] Eosinophils/100 WBC (Bld) 2.7 % Normal [facility] Comment on above: Performed By: #### 4 [id number] #### [address] Erythrocyte distribution width (RBC) [Ratio] 13.0 % Normal 11.5-14.5 [facility] Comment on above: Performed By: #### 4 [id number] #### [address] Hematocrit (Bld) [Volume fraction] 37.5 % Normal 33.6-46.8 [facility] Comment on above: Performed By: #### 4 [id number] #### [address] Hemoglobin (Bld) [Mass/Vol] 11.8 g/dL Normal 11.7-15.8 [facility] Comment on above: Performed By: #### 4 [id number] #### [address] Immature granulocytes/100 WBC (Bld) 0.4 % [facility] Comment on above: Performed By: #### 4 [id number] #### [address] Lymphocytes/100 WBC (Bld) 31.5 % Normal [facility] Comment on above: Performed By: #### 4 [id number] #### [address] MCH (RBC) [Entitic mass] 26.5 pg Low 27.5-32.3 [facility] Comment on above: Performed By: #### 4 [id number] #### [address] MCHC (RBC) [Mass/Vol] 31.5 g/dL Normal 30.7-35.5 [facility] Comment on above: Performed By: #### 4 [id number] #### [address] MCV (RBC) [Entitic vol] 84.3 fL Normal 80.2-99 [facility] Comment on above: Performed By: #### 4 [id number] #### [address] Monocytes/100 WBC (Bld) 5.4 % Normal [facility] Comment on above: Performed By: #### 4 [id number] #### [address] Neutrophils/100 WBC (Bld) 59.2 % Normal [facility] Comment on above: Performed By: #### 4 [id number] #### [address] NUCLEATED RED BLOOD CELLS AUTO 0.0 % Normal 0.0-1.0 [facility] Comment on above: Performed By: #### 4 [id number] #### [address] PLATELET COUNT 299 x10*3/uL Normal 150-400 [facility] Comment on above: Performed By: #### 4 [id number] #### [address] RED BLOOD CELL COUNT 4.45 x10*6/uL Normal 3.60-5.20 [facility] Comment on above: Performed By: #### 4 [id number] #### [address] WHITE BLOOD CELLS 5.2 x10*3/uL Normal 4.3-10.3 [facility] Comment on above: Performed By: #### [id number] #### [address] CBC with differentialOrdered By: Background Lab on 08-12-2023 Absolute Immature Granulocytes 0.0 [facility] Age [Time] 84.3 fL 80.2 - 99 fL [facility] Age [Time] 26.5 pg Low 27.5 - 32.3 pg [facility] Age [Time] 31.5 g/dL 30.7 - 35.5 g/dL [facility] B. burgdorferi IgM IB Ql (CSF) 31.5 % [facility] Basophils (Bld) [#/Vol] 0.0 10*3/uL [facility] Basophils/100 WBC (Body fld) 0.8 % [facility] Eosinophils (Bld) [#/Vol] 1.6 10*3/uL [facility] Eosinophils (Bld) [#/Vol] 0.3 10*3/uL [facility] Eosinophils (Bld) [#/Vol] 0.1 10*3/uL [facility] Eosinophils/100 WBC (Bld) 2.7 % [facility] Erythrocyte distribution width (RBC) [Ratio] 13.0 % 11.5 - 14.5 % [facility] Hematocrit (Bld) [Volume fraction] 37.5 % 33.6 - 46.8 % [facility] Hexanoylglycine (U) [Moles/Vol] 11.8 g/dL 11.7 - 15.8 g/dL [facility] Immature granulocytes/100 WBC (Bld) 0.4 % [facility] Interpretation and review of laboratory results Abnormal [facility] Monocytes/100 WBC (Bld) 5.4 % [facility] Neurotensin (P) [Mass/Vol] 59.2 % [facility] Neutrophils (Bld) [#/Vol] 3.1 10*3/uL [facility] Nucleated RBC/100 WBC (Bld) [Ratio] 0.0 % 0.0 - 1.0 % [facility] Platelets (Bld) [#/Vol] 299 10*3/uL [facility] RBC (Bld) [#/Vol] 4.45 10*6/uL [employer] [facility] WBC (Bld) [#/Vol] 5.2 10*3/uL [employer] [facility] CT ABDOMEN PELVIS WITH IV [...] RAC Omni 300 100 ml Normal [facility] [employer] [facility] HEPATIC FUNCTION PANELon Albumin [Mass/Vol] 4.0 g/dL Normal 3.5-5.0 [facility] [employer] [facility] Comment on above: Performed By: #### 4 [id number], [id number], [id number], [id number] #### [address] [place] [address] [facility] ALK PHOS 104 U/L Normal 24-126 [facility] [employer] [facility] Comment on above: Performed By: #### 4 [id number], [id number], [id number], [id number] #### [address] [place] [address] [place] ALT [Catalytic activity/Vol] 50 U/L High 4-35 [facility] Comment on above: Performed By: #### 4 [id number], [id number], [id number], [id number] #### [address] [place] [address] [place] AST [Catalytic activity/Vol] 59 U/L High 3-47 [employer] [facility] Comment on above: Performed By: #### 4 [id number], 66908863, 57760035, [id number] #### [address] Bilirubin [Mass/Vol] 0.1 mg/dL Low 0.2-1.6 [facility] Comment on above: Performed By: #### 4 8668432, 93466534, 33594912, [id number] #### [address] Bilirubin.indirect [Mass/Vol] 0.1 mg/dL Normal <=0.5 [facility] Comment on above: Performed By: #### 4 [id number], [id number], 79039669, [id number] #### [address] Protein [Mass/Vol] 6.6 g/dL Normal 6.3-8.2 [facility] Comment on above: Performed By: #### 4 [id number], 07306049, [id number], [id number] #### [address] Hepatic Function Panelon Albumin (Syn fld) [Mass/Vol] 4.0 g/dL 3.5 - 5.0 g/dL [facility] Aldosterone (U) [Mass/Vol] 104 U/L 24 - 126 U/L [facility] ALT [Catalytic activity/Vol] 50 U/L High 4 - 35 U/L [facility] AST [Catalytic activity/Vol] 59 U/L High 3 - 47 U/L [facility] Bilirubin [Mass/Vol] 0.1 mg/dL Low 0.2 - 1 .6 mg/dL [facility] Bilirubin.conjugated [Mass/Vol] 0.1 mg/dL NINF - 0.5 mg/dL [facility] Protein [Mass/Vol] 6.6 g/dL 6.3 - 8.2 g/dL [facility] LIPASEon 08-12-2023 Lipase [Catalytic activity/Vol] 11 U/L Low 23-300 [facility] Comment on above: Performed By: #### 4 [id number], [id number], [id number], [id number] #### [place] [id number] Lipaseon 08-12-2023 Lipase [Catalytic activity/Vol] 11 U/L Low 23 - 300 U/L [facility] No Panel Informationon 08-12 Extra Tube Hold for add-ons. [facility] Interpretation and review of laboratory results Abnormal [facility] POCT ED/FC/GSC Urine PregOrd ered By: Della Hays on 08-12-2023 Beta HCG ( test) Ql (U) Negative [facility] Interpretation and review of laboratory results Normal [facility] Civil Manager Acceptable yes [facility] TROPONIN Ion 08-12-2023 Troponin I.cardiac [Mass/Vol] ng/mL Normal <=0.033 [facility] Comment on above: Result Comment: Nega tive: No detectable troponin-I. Performed By: #### 4 [id number] #### [place] [address] [place] TROPONIN I SERIESon 08-12-20 Troponin I.cardiac [Mass/Vol] ng/mL Normal <=0.033 [facility] Comment on above: Result Comment: Nega tive: No detectable troponin-I. Performed By: #### 4 [id number], [id number], [id number], [id number] #### [place] [address] [place] [address] [place] Troponin I (One time)on Interpretation and review of laboratory results Normal [facility] Troponin I.cardiac [Mass/Vol] ng/mL NINF - 0.033 ng/mL [facility] Comment on above: Negative: No detectable troponin-I. [facility] Troponin I - Series (X 3)on 08-12-2023 Interpretation and review of laboratory results Normal [facility] Troponin I.cardiac [Mass/Vol] ng/mL NINF - 0.033 ng/mL [facility] Comment on above: Negative: No detectable troponin-I. [facility] URINALYSIS WITH REFLEX CULTU REon 08-12-2023 Appearance (U) Clear Normal [facility] Comment on above: Performed By: #### 4 [id number] #### [address] [place] [address] [place] BILIRUBIN UA Negative Normal Negative [facility] Comment on above: Performed By: #### 4 [id number] #### [address] Color (U) Yellow Normal [facility] Comment on above: Performed By: #### 4 [id number] #### [address] Glucose Ql (U) Negative Normal Negative [facility] Comment on above: Performed By: #### 4 [id number] #### [address] Ketones Ql (U) Negative Normal Negative [facility] Comment on above: Performed By: #### 4 [id number] #### [address] LEUKOESTERASE Negative Normal Negative [facility] Comment on above: Performed By: #### 4 [id number] #### [address] MUCOUS-URINE Occasional Normal [facility] Comment on above: Performed By: #### 4 [id number] #### [address] Nitrite Ql (U) Negative Normal Negative [facility] Comment on above: Performed By: #### 4 [id number] #### [address] OCCULT BLD Negative Normal Negative [facility] Comment on above: Performed By: #### 4 [id number] #### [address] PH, URINE 5.0 Normal [facility] Comment on above: Performed By: #### 4 [id number] #### [address] Protein Ql (U) Negative Normal Negative [facility] Comment on above: Performed By: #### 4 [id number] #### [address] RBC LM.HPF (Urine sed) [#/Area] /[HPF] Normal <=5 [facility] Comment on above: Performed By: #### 4 [id number] #### [address] SPECIFIC GRAVITY, URINE 1.025 Normal [facility] Comment on above: Performed By: #### 4 [id number] #### [place] [address] [place] SQUAMOUS EPI CELLS 51 /LPF Normal [facility] Comment on above: Performed By: #### 4 [id number] #### [address] UROBILINOGEN UA Negative Normal <2.0 [facility] Comment on above: Performed By: #### 4 [id number] #### [address] WBC LM.HPF (Urine sed) [#/Area] 2 /[HPF] Normal <=5 [facility] Comment on above: Performed By: #### 4 [id number] #### [address] Urinalysis complete W Reflex Culture panel (U)on 08-12-2023 Acetone [Mass/Vol] Negative Negative [facility] Appearance (Body fld) Clear [facility] Bilirubin Ql (U) Negative Negative [facility] Color (Stone) Yellow [facility] G6PD (RBC) [Catalytic activity/Vol] Negative Negative [facility] Hemoglobin Ql (U) [facility] Leukocyte esterase Test strip Ql (U) Negative Negative [facility] Mucor racemosus IgE Qn (S) Occasional /LPF [facility] Nitrite Test strip (U) [Mass/Vol] Negative Negative [facility] pH (Migue fld) 5.0 [facility] Protein (U) [Mass/Vol] Negative Negative [facility] [place] IgE Qn (S) Negative Negative [facility] Specific gravity (U) [Rel density] 1.025 [facility] Spherocytes LM Ql (Bld) 51 /LPF [facility] Urobilinogen Qn (U) Negative [facility] - 2.0 [facility] WBC (U) [#/Vol] 2 /uL [facility] CNOVon 07-31-2023 CNOV Office Visit (SHERON ) MARY LEAL ([id number]) 1970 F Date Time Provider Department 07/31/23 2:30 PM NELSY CHÁVEZ During your visit today, we recorded the following information about you: Pulse Blood pressure Weight Height 76/minute 136/96 69.9 kg 1.626 m Nelsy Chávez APRN.LOCKER ROOM SUPERVISOR 07/31/2023 5:35 PM Signed Female Pelvic Medicine [...] new Pain: no Abnormal Vaginal Discharge: no 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 She has no history of an abnormal mammogram with cysts on US LMP: No LMP recorded. Patient has had a hysterectomy.; Menopause 3 years ago; hysterectomy in 2014: Menstrual history: NA; Deliveries: I have confirmed and edited as necessary, the PFSH obtained by others. Nelsy Chávez APRN.LOCKER ROOM SUPERVISOR Emergency Medical Technician Basic offered: Patient declines. OBJECTIVE: There were no [...] for now d/t side effects Nelsy Chávez APRN.LOCKER ROOM SUPERVISOR I spent a total of 45 minutes on the date of the service which included preparing to see the patient, [id number] patient care, completing clinical documentation, performing a [...] [R35.0] Nocturia [R35.1] Order(s):UA DIP, URINE (POC) [[id number]] Order #: [id number]. #:[id number] URODYNAMICS WHI [[id number]] Order #: [id number] Prescriptions as of 07/31/2023 - atenolol (TENORMIN) [...] 10 m (more content not included)... Normal [facility] UA DIP, URINE (POC)on 2022 BILIRUBIN UA (POCT) Negative Negative [facility] CLARITY UA (POCT) Clear [facility] COLOR UA (POCT) Yellow [facility] GLUCOSE UA (POCT) Negative Negative mg/dL [facility] Hemoglobin Ql (U) Negative Negative [facility] KETONE UA (POCT) Negative Negative mg/dL [facility] LEUKOCYTES UA (POCT) Negative Negative [facility] NITRITE UA (POCT) Negative Negative [facility] PH UA (POCT) 5.0 4.5 - 8.0 [facility] Protein Ql (U) Negative Negative mg/dL [facility] SPECIFIC GRAVITY UA (POCT) 1.010 1.005 - 1.030 [facility] UROBILINOGEN UA (POCT) 0.2 E.U./dL Normal E.U./dL [facility] Office Visit (Cardiology)on 06-13-2023 Follow-up visit Diagnoses/Problems Assessed Chest pain (786.50) (R07.9) Elevated troponin (790.6) (R77.8) Fatigue (780.79) (R53.83) Never a smoker Overweight with body mass index (BMI) of 27 to 27.9 in adult (278.02,V85.23) (E66.3,Z68.27) Orders Elevated troponin IO EKG Electrocardiogram- 12 Lead; Status:Active - Perform Order,Retrospective Authorization; Requested for:[id number]; Overweight with body mass index (BMI) of 27 to 27.9 in adult Healthy Weight Tips; Status:Complete - Retrospective Authorization; Done: [id number] Some eating tips that can help you lose weight.; Status:Complete - Retrospective Authorization; Done: [id number] SocHx: Never a smoker Tobacco Use Screening; Status:Complete; Done: [id number] Patient Instructions Please bring all medicines, vitamins, [...] of which are currently being investigated at [facility] (now her fourth GI specialist). Last year while in [place] she had similar issues with elevated troponins [...] however I believe this is likely a non-OR troponin elevation, likely associated with underlying inflammatory [...] negative for complaint. Vitals Vital Signs Recorded: [id number] 10:37AM Heart Rate70, Apical Ownlkuuk614, RUE, Sitting Jffxmuglu37, RUE, Sitting Height5 ft 4 in Apcmuq087 lb BMI Cpdrwvgixc60.46 kg/m2 BSA Calculated1.78 Tobacco Useb) No PHQ-2 [...] depression screening assessment No [facility] [address] DO Work Phone: Adult depression screening assessment Yes [facility]ista [facility] [address] DO Work Phone: Adult depression screening assessment Moderate (10-14) [facility]ather [facility] [address] DO Work Phone: Fall risk assessment a) No falls within the last year [facility] 320 DO Work Phone: Tobacco use status CP b) No [facility] 320 DO Work Phone: Tobacco Screening. 1-Several days formerly [facility] [address] DO Work Phone: Tobacco Screening. 3-Nearly every day [facility] 320 DO Work Phone: Tobacco Screening. 0-Not at all [facility] 320 DO Work Phone: Tobacco Screening. Somewhat Difficult [facility] 320 DO Work Phone: Activated partial thrombopla stin time (aPTT) in platelet poor plasma by coagulation aOrdered By: Anibal Valle on 06-05-2023 aPTT Coag (PPP) [Time] 28.0 s 25.1-36.5 [facility] Basophils Auto (Bld) [#/Vol] Ordered By: Anibal Valle on 06-05-2023 Basophils (Bld) [#/Vol] 0.0 10*3/uL 0.0-0.2 [facility] Basophils/100 WBC Auto (Bld) Ordered By: Anibal Valle on 06-05-2023 Basophils/100 WBC (Bld) 0.4 % . [facility] Calcium [Mass/volume] in Ser um or PlasmaOrdered By: Anibal Valle on 06-05-2023 Calcium [Mass/Vol] 9.0 mg/dL 8.6-10.3 [facility] Carbon dioxide, total [Moles /volume] in Serum or PlasmaOrdered By: Anibal Valle on 06-05-2023 CO2 [Moles/Vol] 23.2 mmol/L 21.0-31.0 [facility] Chloride [Moles/volume] in S jay or PlasmaOrdered By: Anibal Valle on 06-05-2023 Chloride [Moles/Vol] 108 mmol/L 98-107 [facility] Creatinine [Mass/volume] in Serum or PlasmaOrdered By: Anibal Valle on 06-05-2023 Creatinine [Mass/Vol] 0.67 mg/dL 0.60-1.20 [facility] Eosinophils Auto (Bld) [#/Vo l]Ordered By: Anibal Valle on 06-05-2023 Eosinophils (Bld) [#/Vol] 0.1 10*3/uL 0.0-0.45 [facility] Eosinophils/100 WBC Auto (Bl d)Ordered By: Anibal Valle on 06-05-2023 Eosinophils/100 WBC (Bld) 1.9 % . [facility] Erythrocyte distribution wid th Auto (RBC) [Ratio]Ordered By: Anibal Valle on 06-05-2023 Erythrocyte distribution width (RBC) [Ratio] 13.9 % 11.9-15.3 [facility] Glucose [Mass/volume] in Ser um or PlasmaOrdered By: Anibal Valle on 06-05-2023 Glucose [Mass/Vol] 106 mg/dL 70-100 [facility] Comment on above: ADA recommended refe rence rangeRandom Glucose Reference Range is dependent on time and content of last meal. Glucose of more than 200 mg/dL in a nonstressed, ambulatory subject supports the diagnosis of Diabetes Mellitus. Hematocrit Auto (Bld) [Volum e fraction]Ordered By: Anibal Valle on 06-05-2023 Hematocrit (Bld) [Volume fraction] 34.4 % 34.0-46.4 [facility] Hemoglobin [Mass/volume] in BloodOrdered By: Anibal Valle on 06-05-2023 Hemoglobin (Bld) [Mass/Vol] 11.9 g/dL 11.8-15.4 [facility] - CoagulationOrde red By: Anibal Valle on 06-05-2023 PT Coag (PPP) [Time] 12.0 s 9.0-12.9 [facility] Leukocytes [#/volume] correc herbert for nucleated erythrocytes in Blood by Automated counOrdered By: Anibal Valle on 06-05-2023 WBC corrected for nucl RBC Auto (Bld) [#/Vol] 4.4 10*3/uL 3.8-11.6 [facility] Lymphocytes Auto (Bld) [#/Vo l]Ordered By: Anibal Valle on 06-05-2023 Lymphocytes (Bld) [#/Vol] 1.8 10*3/uL 1.00-4.8 [facility] Lymphocytes/100 WBC Auto (Bl d)Ordered By: Anibal Valle on 06-05-2023 Lymphocytes/100 WBC (Bld) 41.0 % . [facility] MCH Auto (RBC) [Entitic mass ]Ordered By: Anibal Valle on 06-05-2023 MCH (RBC) [Entitic mass] 27.7 pg 24.7-34.3 [facility] MCHC Auto (RBC) [Mass/Vol]Or dered By: Anibal Valle on 06-05-2023 MCHC (RBC) [Mass/Vol] 34.5 g/dL 32.0-35.0 [facility] MCV Auto (RBC) [Entitic vol] Ordered By: Anibal Valle on 06-05-2023 MCV (RBC) [Entitic vol] 80.2 fL 80-100 [facility] Monocyte distribution width [Entitic volume] in Blood by AutomatedOrdered By: Anibal Valle on 06-05-2023 Monocyte distribution width Auto (Bld) [Entitic vol] 24.18 % 0.00-20.00 [facility] Comment on above: For adults in ED, MD W > 20.0 may be associated with a higher risk of sepsis during the first 12 hrs of hospital admission Monocytes Auto (Bld) [#/Vol] Ordered By: Anibal Valle on 06-05-2023 Monocytes (Bld) [#/Vol] 0.3 10*3/uL 0.0-0.8 [facility] Monocytes/100 WBC Auto (Bld) Ordered By: Anibal Valle on 06-05-2023 Monocytes/100 WBC (Bld) 7.5 % . [facility] Natriuretic peptide B [Mass/ Vol]Ordered By: Anibal Valle on 06-05-2023 Natriuretic peptide B (Bld) [Mass/Vol] 39.0 pg/mL 5-100 [facility] Neutrophils Auto (Bld) [#/Vo l]Ordered By: Anibal Valle on 06-05-2023 Neutrophils (Bld) [#/Vol] 2.2 10*3/uL 1.8-7.7 [facility] Neutrophils/100 WBC Auto (Bl d)Ordered By: Anibal Valle on 06-05-2023 Neutrophils/100 WBC (Bld) 49.2 % . [facility] No Panel InformationOrdered By: Anibal Valle on 06-05-2023 Estimated GFR (CKD-EPI) > 60.0 mL/Min [facility] Creatinine Clearance (Chem 97.82 [facility] Nucleated erythrocytes [Pres ence] in Blood by Automated countOrdered By: Anibal Valle on 06-05-2023 Nucleated RBC Auto Ql (Bld) 0.1 /100{WBC} 0-0.5 [facility] Platelet mean volume Auto (B ld) [Entitic vol]Ordered By: Anibal Valle on 06-05-2023 Platelet mean volume (Bld) [Entitic vol] 7.4 fL 6.3-10.7 [facility] Platelet poor plasma interna tional normalized ratio (INR) by coagulation assay (relatOrdered By: Anibal Valle on 06-05-2023 INR Coag (PPP) [Relative time] 1.0 {INR} [facility] Comment on above: INR Therapeutic Rang [...] 06-05-2023 Platelets (Bld) [#/Vol] 336 10*3/uL 150-450 [facility] Potassium [Moles/volume] in Serum or PlasmaOrdered By: Anibal Valle on 06-05-2023 Potassium [Moles/Vol] 3.8 mmol/L 3.5-5.1 [facility] RBC Auto (Bld) [#/Vol]Ordere d By: Anibal Valle on 06-05-2023 RBC (Bld) [#/Vol] 4.29 10*6/uL 3.60-5.00 [facility] Serum or plasma anion gap de terminationOrdered By: Anibal Valle on 06-05-2023 Anion gap [Moles/Vol] 10.6 mmol/L 6.0-15.0 [facility] Sodium [Moles/volume] in Ser um or PlasmaOrdered By: Anibal Valle on 06-05-2023 Sodium [Moles/Vol] 138 mmol/L 136-145 [facility] Troponin I.cardiac [Mass/vol ume] in Serum or Plasma by Detection limit <= 0.01 ng/Ordered By: Anibal Valle on 06-05-2023 Troponin I.cardiac DL <= 0.01 ng/mL [Mass/Vol] 2.6 pg/mL 0.0-15.0 [facility] Urea nitrogen [Mass/volume] in Serum or PlasmaOrdered By: Anibal Valle on 06-05-2023 Urea nitrogen [Mass/Vol] 10 mg/dL 7-25 [facility] WBC Auto (Bld) [#/Vol]Ordere d By: Anibal Valle on 06-05-2023 WBC (Bld) [#/Vol] 4.4 10*3/uL 3.8-11.6 [facility] CBC AUTO DIFFon 04-05-2023 BASO # 0.0 103/ul Normal 0.0-0.1 [facility] Comment on above: Performed By: #### L ACT #### [facility] [address] [place], [place] [address] Dr. Mirian Velasco Basophils/100 WBC (Bld) 0.8 % Normal 0.2-2.0 [facility] Comment on above: Performed By: #### L ACT #### [facility] [address] [place], [place] [address] Dr. Mirian Velasco EO # 0.1 103/ul Normal 0.0-0.7 [facility] Comment on above: Performed By: #### L ACT #### [facility] [address] [place] [address] Dr. Mirian Velasco Eosinophils/100 WBC (Bld) 1.1 % Normal 0.9-7.0 [facility] Comment on above: Performed By: #### L ACT #### [facility] [address] [place] [address] Dr. Mirian Velasco Erythrocyte distribution width (RBC) [Ratio] 13.1 % Normal 11.0-15.0 [facility] Comment on above: Performed By: #### L ACT #### [facility] [address] [place] [address] Dr. Mirian Velasco Hematocrit (Bld) [Volume fraction] 37.6 % Normal 36.0-48.0 [facility] Comment on above: Performed By: #### L ACT #### [facility] [address] [place] [address] Dr. Mirian Velasco Hemoglobin (Bld) [Mass/Vol] 12.4 g/dL Normal 12.0-16.0 [facility] Comment on above: Performed By: #### L ACT #### [facility] [address] [place] [address] Dr. Mirian Velasco IG # 0.01 10e3/ul Normal 0.00-0.03 [facility] Comment on above: Performed By: #### L ACT #### [facility] [address] [place] [address] Dr. Mirian Velasco IG % 0.2 % Normal 0.0-0.5 [facility] Comment on above: Performed By: #### L ACT #### [facility] [address] [place] [address] Dr. Mirian Velasco LYMPH # 2.5 103/ul Normal 1.2-3.8 [facility] Comment on above: Performed By: #### L ACT #### [facility] [address] [place] [address] Dr. Mirian Velasco Lymphocytes/100 WBC (Bld) 46.2 % Normal 20.5-60.0 [facility] Comment on above: Performed By: #### L ACT #### [facility] [address] [place] [address] Dr. Mirian Velasco MANUAL DIFF REQ NO Normal [facility] Comment on above: Performed By: #### L ACT #### [facility] [address] [place] [address] Dr. Mirian Velasco MCH (RBC) [Entitic mass] 27.1 pg Normal 26.7-34.0 [facility] Comment on above: Performed By: #### L ACT #### [facility] [address] [place] [address] Dr. Mirian Velasco MCHC (RBC) [Mass/Vol] 33.0 g/dL Normal 29.9-35.2 [facility] Comment on above: Performed By: #### L ACT #### [facility] [address] [place] [address] Dr. Mirian Velasco MCV (RBC) [Entitic vol] 82.3 fL Normal 81.0-99.0 [facility] Comment on above: Performed By: #### L ACT #### [facility] [address] [place] [address] Dr. Mirian Velasco MONO # 0.4 103/ul Normal 0.3-0.8 [facility] Comment on above: Performed By: #### L ACT #### [facility] [address] [place] [address] Dr. Mirian Velasco Monocytes/100 WBC (Bld) 7.9 % Normal 1.7-12.0 [facility] Comment on above: Performed By: #### L ACT #### [facility] [address] [place] [address] Dr. Mirian Velasco NEUT # 2.3 103/ul Normal 1.4-6.5 [facility] Comment on above: Performed By: #### L ACT #### [facility] [address] [place] [address] Dr. Mirian Velasco Neutrophils/100 WBC (Bld) 43.8 % Normal 43.0-75.0 [facility] Comment on above: Performed By: #### L ACT #### [facility] [address] [place] [address] [address] Mirian Velasco Platelet mean volume (Bld) [Entitic vol] 9.2 fL Critically low 9.5-13.5 [facility] Comment on above: Performed By: #### L ACT #### [facility] [address] [place] [address] [address] Mirian Velasco PLT 318 103/ul Normal 150-450 [facility] Comment on above: Performed By: #### L ACT #### [facility] [address] [place] [address] [address] Mirian Velasco RBC 4.57 106/ul Normal 4.20-5.40 [facility] Comment on above: Performed By: #### L ACT #### [facility] [address] [place] [address] [address] Mirian Velasco WBC 5.3 103/ul Normal 4.0-11.0 [facility] Comment on above: Performed By: #### L ACT #### [facility] [address] [place] [address] [address] Mirian Velasco PROF CHEM 8 (BAS METB)on Anion gap [Moles/Vol] 19.0 mmol/L Normal [facility] Comment on above: Performed By: #### H FAUSTO, BMP ####[facility] [address] [place] [address]DrReno Velasco Calcium [Mass/Vol] 9.6 mg/dL Normal 8.5-10.1 [facility] Comment on above: Performed By: #### H STROPN, BMP ####[facility] [address] [place] [address]DrReno Velasco Chloride [Moles/Vol] 103 mmol/L Normal 98-107 [facility] Comment on above: Performed By: #### H STROPN, BMP ####[facility] [address] [place] [address]Dr. Mirian Velasco CO2 [Moles/Vol] 23.1 mmol/L Normal 21.0-32.0 [facility] Comment on above: Performed By: #### H STROPN, BMP ####[facility] [address] [place], [place] [address]If. Mirian Velasco Creatinine [Mass/Vol] 0.84 mg/dL Normal 0.55-1.02 [facility] Comment on above: Performed By: #### H STROPN, BMP ####[facility] [address] [place] [id number]. Mirian Velasco EGFR-AF CITIZEN [place] >60 Normal >=60 [facility] Comment on above: Performed By: #### H STROPN, BMP ####[facility] [address] [place] [id number]. Mirian Velasco EGFR-NON AF CITIZEN OF [place] >60 Normal >=60 [facility] Comment on above: Performed By: #### H STROPN, BMP ####[facility] [address] [place] [id number]. Mirian Velasco Glucose [Mass/Vol] 129 mg/dL Critically high 74-106 [facility] Comment on above: Performed By: #### H STROPN, BMP ####[facility] [address] [place] [id number]. Mirian Velasco Potassium [Moles/Vol] 3.1 mmol/L Critically low 3.5-5.1 [facility] Comment on above: Performed By: #### H STROPN, BMP ####[facility] [address] [place] [id number]. Mirian Velasco Sodium [Moles/Vol] 142 mmol/L Normal 136-145 [facility] Comment on above: Performed By: #### H STROPN, BMP ####[facility] [address] [place] [id number]. Mirian Velasco Urea nitrogen [Mass/Vol] 12.0 mg/dL Normal 7.0-18.0 [facility] Comment on above: Performed By: #### H STROPN, BMP ####[facility] [address] [place] [id number]. Mirian Velasco Urea nitrogen/Creatinine [Mass ratio] 14.3 mg/mg Normal [facility] Comment on above: Performed By: #### H FAUSTO, BMP ####[facility] [address] [place] [address]Dr. Mirian Velasco TROPONIN, HIGH SENSITIVITYon 04-05-2023 HSTROP 5.6 pg/mL Normal 4.0-51.3 [facility] Comment on above: Result Comment: CUT- OFF POINTS HAVE BEEN ESTABLISHED BASED ON THE FOURTH UNIVERSAL DEFINITIONS OF MYOCARDIAL INFARCTION. THE UPPER REFERENCE LIMIT (URL) OF TROPONIN, DEFINED THE 99TH PERCENTILE OF cTnI DISTRIBUTION IN A REFERENCE POPULATION, HAS BEEN CONFIRMED THE DECISION THRESHOLD FOR OR DIAGNOSIS. Performed By: #### H FAUSTO, BMP ####[facility] [address] [place] [address]Dr. Mirian Velasco CBC AUTO DIFFon 03-06-2023 BASO # 0.1 103/ul Normal 0.0-0.1 [facility] Comment on above: Performed By: #### L ACT #### [facility] [address] [place] [address] Dr. Mirian Velasco Basophils/100 WBC (Bld) 0.8 % Normal 0.2-2.0 [facility] Comment on above: Performed By: #### L ACT #### [facility] [address] [place] [address] Dr. Mirian Velasco EO # 0.1 103/ul Normal 0.0-0.7 [facility] Comment on above: Performed By: #### L ACT #### [facility] [address] [place] [address] Dr. Mirian Velasco Eosinophils/100 WBC (Bld) 1.4 % Normal 0.9-7.0 [facility] Comment on above: Performed By: #### L ACT #### [facility] [address] [place] [address] Dr. Mirian Velasco Erythrocyte distribution width (RBC) [Ratio] 13.1 % Normal 11.0-15.0 [facility] Comment on above: Performed By: #### L ACT #### [facility] [address] [place] [address] Dr. Mirian Velasco Hematocrit (Bld) [Volume fraction] 37.9 % Normal 36.0-48.0 [facility] Comment on above: Performed By: #### L ACT #### [facility] [address] [place] [address] Dr. Mirian Velasco Hemoglobin (Bld) [Mass/Vol] 12.7 g/dL Normal 12.0-16.0 [facility] Comment on above: Performed By: #### L ACT #### [facility] [address] [place] [address] Dr. Mirian Velasco IG # 0.01 10e3/ul Normal 0.00-0.03 [facility] Comment on above: Performed By: #### L ACT #### [facility] [address] [place] [address] Dr. Mirian Velasco IG % 0.2 % Normal 0.0-0.5 [facility] Comment on above: Performed By: #### L ACT #### [facility] [address] [place] [address] Dr. Mirian Velasco LYMPH # 1.8 103/ul Normal 1.2-3.8 [facility] Comment on above: Performed By: #### L ACT #### [facility] [address] [place] [address] Dr. Mirian Velasco Lymphocytes/100 WBC (Bld) 27.2 % Normal 20.5-60.0 [facility] Comment on above: Performed By: #### L ACT #### [facility] [address] [place] [address] Dr. Mirian Velasco MANUAL DIFF REQ NO Normal [facility] Comment on above: Performed By: #### L ACT #### [facility] [address] [place] [address] Dr. Mirian Velasco MCH (RBC) [Entitic mass] 27.5 pg Normal 26.7-34.0 [facility] Comment on above: Performed By: #### L ACT #### [facility] [address] [place] [address] Dr. Mirian Velasco MCHC (RBC) [Mass/Vol] 33.5 g/dL Normal 29.9-35.2 [facility] Comment on above: Performed By: #### L ACT #### [facility] [address] [place] [address] [address] Mirian Velasco MCV (RBC) [Entitic vol] 82.0 fL Normal 81.0-99.0 [facility] Comment on above: Performed By: #### L ACT #### [facility] [address] [place] [address] [address] Mirian Velasco MONO # 0.4 103/ul Normal 0.3-0.8 [facility] Comment on above: Performed By: #### L ACT #### [facility] [address] [place] [address] [address] Mirian Velasco Monocytes/100 WBC (Bld) 5.5 % Normal 1.7-12.0 [facility] Comment on above: Performed By: #### L ACT #### [facility] [address] [place] [address] [address] Mirian Velasco NEUT # 4.3 103/ul Normal 1.4-6.5 [facility] Comment on above: Performed By: #### L ACT #### [facility] [address] [place] [address] Dr. Mirian Velasco Neutrophils/100 WBC (Bld) 64.9 % Normal 43.0-75.0 [facility] Comment on above: Performed By: #### L ACT #### [facility] [address] [place] [address] [address] Mirian Velasco Platelet mean volume (Bld) [Entitic vol] 9.4 fL Critically low 9.5-13.5 [facility] Comment on above: Performed By: #### L ACT #### [facility] [address] [place] [address] [address] Mirian Velasco PLT 317 103/ul Normal 150-450 [facility] Comment on above: Performed By: #### L ACT #### [facility] [address] [place] [address] [address] Mirian Velasco RBC 4.62 106/ul Normal 4.20-5.40 [facility] Comment on above: Performed By: #### L ACT #### [facility] [address] [place] [address] Dr. Mirian Velasco WBC 6.6 103/ul Normal 4.0-11.0 [facility] Comment on above: Performed By: #### L ACT #### [facility] [address] [place] [address] [address] Mirian Velasco CULTURE BLOODon 03-06-2023 Microscopic examination of blood, culture Culture Observations: NO GROWTH AT 5 DAYS. Normal [facility] Comment on above: Performed By: #### B LDCX2 ####[facility] [address] [place] [address]Dr. Mirian Velasco Microscopic examination of blood, culture Culture Observations: NO GROWTH AT [address] [facility] Comment on above: Performed By: #### B LDCX1 #### [facility] [address] [place] [address] Dr. Mirian Velasco LACTATE/LACTIC ACIDon 2022 Lactate [Moles/Vol] 2.2 mmol/L Critically high 0.4-2.0 [facility] Comment on above: Performed By: #### L ACT #### [facility] [address] [place] [address] Dr. Mirian Velasco LIPASEon 03-06-2023 Lipase [Catalytic activity/Vol] 53.0 U/L Critically low 73.0-393.0 [facility] Comment on above: Performed By: #### L ACT #### [facility] [address] [place] [address] Dr. Mirian Velasco PROF 14(COMP METB)on 023 Albumin [Mass/Vol] 3.4 g/dL Normal 3.4-5.0 [facility] Comment on above: Performed By: #### L ACT #### [facility] [address] [place] [address] Dr. Mirian Velasco Albumin/Globulin [Mass ratio] 1.0 {ratio} [facility] Comment on above: Performed By: #### L ACT #### [facility] [address] [place] [address] Dr. Mirian Velasco ALP [Catalytic activity/Vol] 123 U/L Critically high 46-116 [facility] Comment on above: Performed By: #### L ACT #### [facility] [address] [address] [address] Mirian Velasco ALT [Catalytic activity/Vol] 33 U/L Normal 14-59 [facility] Comment on above: Performed By: #### L ACT #### [facility] [address] [address] [address] Mirian Velasoc Anion gap [Moles/Vol] 13.1 mmol/L Normal [facility] Comment on above: Performed By: #### L ACT #### [facility] [address] [address] [address] Mirian Velasco AST [Catalytic activity/Vol] 31 U/L Normal 15-37 [facility] Comment on above: Performed By: #### L ACT #### [facility] [address] [place] [address] Dr. Mirian Velasco Bilirubin [Mass/Vol] 0.3 mg/dL Normal 0.2-1.0 [facility] Comment on above: Performed By: #### L ACT #### [facility] [address] [place] [address] Dr. Mirian Velasco Calcium [Mass/Vol] 8.9 mg/dL Normal 8.5-10.1 [facility] Comment on above: Performed By: #### L ACT #### [facility] [address] [address] [address] Mirian Velasco Chloride [Moles/Vol] 107 mmol/L Normal 98-107 [facility] Comment on above: Performed By: #### L ACT #### [facility] [address] [address] [address] Mirian Velasco CO2 [Moles/Vol] 25.6 mmol/L Normal 21.0-32.0 [facility] Comment on above: Performed By: #### L ACT #### [facility] [address] [address] [address] Mirian Velasco Creatinine [Mass/Vol] 0.70 mg/dL Normal 0.55-1.02 [facility] Comment on above: Performed By: #### L ACT #### [facility] [address] [address] [address] Mirian Velasco EGFR-AF CITIZEN OF [place] >60 Normal >=60 [facility] Comment on above: Performed By: #### L ACT #### [facility] [address] [address] [address] Mirian Velasco EGFR-NON AF CITIZEN OF [place] >60 Normal >=60 [facility] Comment on above: Performed By: #### L ACT #### [facility] [address] [address] [address] Mirian Velasco Globulin (S) [Mass/Vol] 3.4 g/dL Normal [facility] Comment on above: Performed By: #### L ACT #### [facility] [address] [place] [address] Dr. Mirian Velasco Glucose [Mass/Vol] 125 mg/dL Critically high 74-106 [facility] Comment on above: Performed By: #### L ACT #### [facility] [address] [address] [address] Mirian Velasco Potassium [Moles/Vol] 3.7 mmol/L Normal 3.5-5.1 [facility] Comment on above: Performed By: #### L ACT #### [facility] [address] [place] [address] Dr. Mirian Velasco Protein [Mass/Vol] 6.8 g/dL Normal 6.4-8.2 [facility] Comment on above: Performed By: #### L ACT #### [facility] [address] [address] [address] Mirian Velasco Sodium [Moles/Vol] 142 mmol/L Normal 136-145 [facility] Comment on above: Performed By: #### L ACT #### [facility] [address] [address] [address] Mirian Velasco Urea nitrogen [Mass/Vol] 16.0 mg/dL Normal 7.0-18.0 [facility] Comment on above: Performed By: #### L ACT #### [facility] [address] [address] [address] Mirian Velasco Urea nitrogen/Creatinine [Mass ratio] 22.9 mg/mg Normal [facility] Comment on above: Performed By: #### L ACT #### [facility] [address] [address] [address] Mirian Velasco PROTIMEon 03-06-2023 INR Coag (PPP) [Relative time] {INR} Normal [facility] Comment on above: Performed By: #### P T #### [facility] [address] [place] [address] Dr. Mirian Velasco INR GUIDELINES SEE BELOW Normal [facility] Comment on above: Result Comment: SAMEER RED INR: 2.0 - 3.0 CONDITIONS NOT LISTED BELOW 2.5 - 3.5 FOR PROSTHETIC HEART VALVE REPLACEMENT 2.5 - 3.5 RECURRENT THROMBOSIS Performed By: #### P T #### [facility] [address] [place] [address] Dr. Mirian Velasco PT Coag (PPP) [Time] 9.8 s Normal 9.0-11.6 [facility] Comment on above: Performed By: #### P T #### [facility] [address] [place] [address] Dr. Mirian Velasco TROPONIN, HIGH SENSITIVITYon 03-06-2023 HSTROP 4.4 pg/mL Normal 4.0-51.3 [facility] Comment on above: Result Comment: CUT- OFF POINTS HAVE BEEN ESTABLISHED BASED ON THE FOURTH UNIVERSAL DEFINITIONS OF MYOCARDIAL INFARCTION. THE UPPER REFERENCE LIMIT (URL) OF TROPONIN, DEFINED THE 99TH PERCENTILE OF cTnI DISTRIBUTION IN A REFERENCE POPULATION, HAS BEEN CONFIRMED THE DECISION THRESHOLD FOR OR DIAGNOSIS. Performed By: #### L ACT #### [facility] [address] [place] [address] Dr. Mirian Velasco Bacteria identified Aer cx N om (Unsp spec)Ordered By: Nicey Duron on 03-02-2023 Superficial Wound Culture Methicillin Resis Staph Aureus [facility] CT LSPINE WO CONon 3 [...] by: NANCY BELLE Date: 2023-02-19 06:42 Normal [facility] XR ESOPHAGRAMon 12-26-2022 [facility] NURSING PROGon 12-08-2022 NURSING PROG HNO ID: [id number] Author: Lisa Contreras RN Service: Nursing Author Type: Registered Nurse Type: Nursing Progress Note Filed: 12/08/2022 11:28 AM Note Text: [facility] ENDOSCOPY POST PROCEDURE FOLLOW UP CALL [phone] (home) Date Phone Call Made: 12/08/2022 Attempt: [...] EVALon 023 ANES POSTPROC EVAL HNO ID: [id number] Author: Andres Sheets DO Service: Anesthesiology Author Type: Anesthesiologist Type: Anesthesia Postprocedure Evaluation Filed: 12/07/2022 12:44 PM Note Text: POST ANESTHESIA EVALUATION NOTE : 1970 Procedure Summary Date: 12/07/22 Room / Location: [facility] Anesthesia Start: 1034 Anesthesia Stop: [...] December 07, 2022 TIME: 12:44 PM CSN: [id number] [facility] ANES PRE-OPon 12-07-2022 ANES PRE-OP HNO ID: [id number] Author: Andres Sheets DO Service: Anesthesiology Author Type: Anesthesiologist Type: Anesthesia Preprocedure Evaluation Filed: 12/07/2022 9:42 AM Note Text: ANESTHESIOLOGY DAY OF SURGERY NOTE : 1970 Procedure Information Date/Time: 12/07/22 1030 Scheduled providers: Winston Hannah DO Procedures: EGD - THERAPEUTIC, EUS, OR TUBE INTERVENTIONS PH MONTIEL INSERT OFF MEDS Location: [facility] Estimated body mass index is [...] December 07, 2022 TIME: 9:40 AM CSN: [id number] [facility] HISTORY PHYSICALon HISTORY PHYSICAL HNO ID: [id number] Author: Soraida Mathis PA-C Service: Gastroenterology Author Type: Physician Veterinarian Poultry Type: HANDP Filed: 12/07/2022 9:48 AM Note [...] PAIN, N/V/D Medication reconciliation list reviewed in [facility]. Past medical history, past surgical history, social history and family history reviewed and updated in [facility]. ALLERGIES Allergies: Risperidone Intolerance Comment:Breast discharge SEE [facility] FOR [facility]ITALS BP 109/74 Pulse [...] GI endoscopyon 023 Upper GI endoscopy [facility] Gastrointestinal Endoscopy Patient Name: Mary [...] by the physician, the nurse and the navy airspace officer in the pre-procedure area in the endoscopy [...] previously scheduled. Procedure Code(s): --- Professional --- 40329, Esophagogastroduodenos copy, flexible, transoral; with dilation of gastric/duodenal stricture(s) (eg, balloon, bougie) Diagnosis Code(s): --- Professional --- K21.00, Gastro-esophageal reflux disease with esophagitis, without bleeding K31.84, Gastroparesis CPT copyright 2020 [employer]. All rights reserved. The codes documented in this report are preliminary and upon insole reinforcer review may be revised to meet current compliance requirements. Attending Participation: I personally performed the entire procedure. Scope In: 10:39:12 AM Scope Out: 10:46:13 AM MD Winston Diaz MD 12/07/2022 10 (more content not included)... Normal [facility] ANES POSTPROC EVALon 023 ANES POSTPROC EVAL HNO ID: [id number] Author: Annabel Burton MD Service: Anesthesiology Author Type: Physician Type: Anesthesia Postprocedure Evaluation Filed: 12/05/2022 2:01 PM Note Text: POST ANESTHESIA EVALUATION NOTE : 1970 Procedure Summary Date: 12/05/22 Room / Location: [facility] Anesthesia Start: 900 Anesthesia Stop: 917 Procedure: SIGMOIDOSCOPY Diagnosis: Chronic idiopathic constipation (Constipation) Scheduled Providers: sIra Masters DO Responsible Provider: Annabel Burton MD [...] December 05, 2022 TIME: 2:00 PM CSN: [id number] [facility] ANES PRE-OPon 12-05-2022 ANES PRE-OP HNO ID: [id number] Author: Annabel Burton MD Service: Anesthesiology Author Type: Physician Type: Anesthesia Preprocedure Evaluation Filed: 12/05/2022 8:28 AM Note Text: ANESTHESIOLOGY DAY OF SURGERY NOTE : 1970 Procedure Information Date/Time: 12/05/22 0900 Scheduled providers: Isra Masters DO Procedure: SIGMOIDOSCOPY Location: [facility] Estimated body mass index is [...] December 05, 2022 TIME: 8:26 AM CSN: [id number] [facility] Flexible Sigmoidoscopyon Flexible sigmoidoscopy [facility] Gastrointestinal Endoscopy Patient Name: Mary Leal Procedure Date: 12/05/2022 8:55 AM Date of : 1970 Admit Type: Outpatient Age: 52 Room: [place] [address] Gender: Female Note Status: Finalized Attending MD: [...] present medications. Procedure Code(s): --- Professional --- 38002, 52, Sigmoidoscopy, flexible; diagnostic, including collection of specimen(s) by brushing or washing, when performed (separate procedure) Diagnosis Code(s): --- Professional --- K59.00, Constipation, unspecified CPT copyright 2020 [employer]. All rights reserved. The codes documented in this report are preliminary and upon insole reinforcer review may be revised to meet current compliance requirements. Attending Participation: I personally performed the entire procedure. Scope In: 9:07:04 AM Scope Out: 9:09:45 AM DO Isra Chen DO 12/05/2022 9:13:05 AM This report has been signed electronically by Isra Masters DO Number of Addenda: 0 Note Initiated On: 12/05/2022 8:55 AM Estimated Blood Loss: Estimated blood loss: none. [facility] HISTORY PHYSICALon HISTORY PHYSICAL HNO ID: [id number] Author: Lashanda Dorado PA-C Service: Gastroenterology Author Type: Physician Veterinarian Poultry Type: HANDP Filed: 12/05/2022 8:43 AM Note [...] PAIN, N/V/D Medication reconciliation list reviewed in [facility]. Past medical history, past surgical history, social history and family history reviewed and updated in [facility]. ALLERGIES Allergies: Risperidone Intolerance Comment:Breast discharge SEE [...] NURSING PROGon 12-05-2022 NURSING PROG HNO ID: [id number] Author: Lisa Contreras, RN Service: ? Author Type: Registered Nurse Type: Nursing Progress Note Filed: 12/05/2022 1:07 PM Note Text: [facility] ENDOSCOPY PRE PROCEDURE CALL Akiko. I'm calling from [facility] endoscopy to provide you with the information for your surgery/procedure tomorrow. 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 yes When anesthesia or sedation is being given: Patient instructed you must have an adult milk delivery driver because you will not be able to work or drive for the rest of the day after your test.yes Can you please confirm the name and relationship of your milk delivery driver. tbd What is the best number for your milk delivery driver to be reached at tomorrow for updates? tbd Your milk delivery driver is allowed to wait here [...] Do not wear makeup, lotion, or finger algerian. yes Patient instructed: Please bring a list [...] given Any barriers to Patient learning (confusion? Terminal Operations Supervisor needed?): Patient/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 responded appropriately on phone. If patient needs to reschedule please call: [phone] DD phone number: [phone] Type of instruction given: Verbal by telephone contact. Normal [facility] NURSING PROGon 12-02-2022 NURSING PROG HNO ID: [id number] Author: Isra Harman RN Service: ? Author Type: Registered Nurse Type: Nursing Progress Note Filed: 12/02/2022 10:54 AM Note Text: [facility] ENDOSCOPY PRE PROCEDURE CALL Akiko. I'm calling from [facility] endoscopy to provide you with the information for your surgery/procedure tomorrow. 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 yes When anesthesia or sedation is being given: Patient instructed you must have an adult milk delivery driver because you will not be able to work or drive for the rest of the day after your test.yes Can you please confirm the name and relationship of your milk delivery driver. Rich What is the best number for your milk delivery driver to be reached at tomorrow for updates? [phone] Your milk delivery driver is allowed to wait here [...] be done on Monday.) Did you picking tech your bowel prep pt calling office for [...] Do not wear makeup, lotion, or finger algerian. yes Patient instructed: Please bring a list [...] given Any barriers to Patient learning (confusion? Terminal Operations Supervisor needed?): Patient/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 responded appropriately on phone. If patient needs to reschedule please call: [phone] [facility] phone number: [phone] Type of instruction given: Verbal by telephone contact. Normal [facility] AMYLASEon 10-20-2022 Amylase [Catalytic activity/Vol] 33 U/L Normal 25-115 [facility] Comment on above: Performed By: #### L ACT #### [facility] [address] [place] [address] Dr. Mirian Velasco CBC AUTO DIFFon 10-20-2022 BASO # 0.0 103/ul Normal 0.0-0.1 [facility] Comment on above: Performed By: #### P T #### [facility] [address] [place] [address] Dr. Mirian Velasco Basophils/100 WBC (Bld) 0.2 % Normal 0.2-2.0 [facility] Comment on above: Performed By: #### P T #### [facility] [address] [place] [address] Dr. Mirian Velasco EO # 0.1 103/ul Normal 0.0-0.7 [facility] Comment on above: Performed By: #### P T #### [facility] [address] [place] [address] Dr. Mirian Velasco Eosinophils/100 WBC (Bld) 0.6 % Critically low 0.9-7.0 [facility] Comment on above: Performed By: #### P T #### [facility] [address] [place] [address] Dr. Mirian Velasco Erythrocyte distribution width (RBC) [Ratio] 13.6 % Normal 11.0-15.0 [facility] Comment on above: Performed By: #### P T #### [facility] [address] [address] [address] Mirian Velasco Hematocrit (Bld) [Volume fraction] 41.0 % Normal 36.0-48.0 [facility] Comment on above: Performed By: #### P T #### [facility] [address] [place] [address] Dr. Mirian Velasco Hemoglobin (Bld) [Mass/Vol] 13.5 g/dL Normal 12.0-16.0 [facility] Comment on above: Performed By: #### P T #### [facility] [address] [place] [address] Dr. Mirian Velasco IG # 0.06 10e3/ul Critically high 0.00-0.03 [facility] Comment on above: Performed By: #### P T #### [facility] [address] [place] [address] Dr. Mirian Velasco IG % 0.4 % Normal 0.0-0.5 [facility] Comment on above: Performed By: #### P T #### [facility] [address] [place] [address] Dr. Mirian Velasco LYMPH # 2.5 103/ul Normal 1.2-3.8 [facility] Comment on above: Performed By: #### P T #### [facility] [address] [place] [address] Dr. Mirian Velasco Lymphocytes/100 WBC (Bld) 17.5 % Critically low 20.5-60.0 [facility] Comment on above: Performed By: #### P T #### [facility] [address] [place] [address] Dr. Mirian Velasco MANUAL DIFF REQ NO Normal [facility] Comment on above: Performed By: #### P T #### [facility] [address] [place] [address] Dr. Mirian Velasco MCH (RBC) [Entitic mass] 28.1 pg Normal 26.7-34.0 [facility] Comment on above: Performed By: #### P T #### [facility] [address] [address] [address] Mirian Velasco MCHC (RBC) [Mass/Vol] 32.9 g/dL Normal 29.9-35.2 [facility] Comment on above: Performed By: #### P T #### [facility] [address] [address] [address] Mirian Velasco MCV (RBC) [Entitic vol] 85.2 fL Normal 81.0-99.0 [facility] Comment on above: Performed By: #### P T #### [facility] [address] [address] [address] Mirian Velasco MONO # 0.7 103/ul Normal 0.3-0.8 [facility] Comment on above: Performed By: #### P T #### [facility] [address] [place] [address] Dr. Mirian Velasco Monocytes/100 WBC (Bld) 4.5 % Normal 1.7-12.0 [facility] Comment on above: Performed By: #### P T #### [facility] [address] [address] [address] Mirian Velasco NEUT # 11.0 103/ul Critically high 1.4-6.5 [facility] Comment on above: Performed By: #### P T #### [facility] [address] [place] [address] Dr. Mirian Velasco Neutrophils/100 WBC (Bld) 76.8 % Critically high 43.0-75.0 [facility] Comment on above: Performed By: #### P T #### [facility] [address] [address] [address] Mirian Velasco Platelet mean volume (Bld) [Entitic vol] 8.7 fL Critically low 9.5-13.5 [facility] Comment on above: Performed By: #### P T #### [facility] [address] [place] [address] Dr. Mirian Velasco PLT 390 103/ul Normal 150-450 [facility] Comment on above: Performed By: #### P T #### [facility] [address] [place], [place] [address] Dr. Mirian Velasco RBC 4.81 106/ul Normal 4.20-5.40 [facility] Comment on above: Performed By: #### P T #### [facility] [address] [place], [place] [address] Dr. Mirian Velasco WBC 14.3 103/ul Critically high 4.0-11.0 [facility] Comment on above: Performed By: #### P T #### [facility] [address] [place], [place] [address] ABD/PELV W CONon [...] by: SALMA AMEZQUITA Date: 2022-10-20 12:35 Normal [facility] CULTURE BLOODon 10-20-2022 Microscopic examination of blood, culture Culture Observations: NO GROWTH AT 5 DAYS. Normal [facility] Comment on above: Performed By: #### B [id number] ####[facility] [id number] [address]Dr[address] Mirian Velasco Microscopic examination of blood, culture Culture Observations: NO GROWTH AT 5 DAYS. Normal [facility] Comment on above: Performed By: #### B [id number] #### [facility] [address] [place] [address] Dr. Mirian Velasco CULTURE URINEon 10-20-2022 CULTURE URINE Culture Observations : LIGHT GROWTH OF MIXED GENITAL WALKRE. NO POTENTIAL PATHOGENS SEEN. Normal [facility] Comment on above: Performed By: #### U RCX #### [facility] [address] [place] [address] Dr. Mirian Velasco ER URINE PROFILEon Bilirubin Ql (U) Negative Normal NEGATIVE [facility] Comment on above: Performed By: #### P T #### [facility] [address] [place] [address] Dr. Mirian Velasco Clarity (U) CLEAR Normal CLEAR [facility] Comment on above: Performed By: #### P T #### [facility] [address] [place] [address] Dr. Mirian Velasco Color (U) LT. YELLOW Normal YELLOW [facility] Comment on above: Performed By: #### P T #### [facility] [address] [place] [address] Dr. Mirian Velasco ERURAVI A micrscopic examination will be performed if indicated. Normal [facility] Comment on above: Performed By: #### P T #### [facility] [address] [place] [address] Dr. Mirian Velasco Glucose Ql (U) Negative Normal NEGATIVE [facility] Comment on above: Performed By: #### P T #### [facility] [address] [place] [address] Dr. Mirian Velasco Hemoglobin Ql (U) Negative Normal NEGATIVE [facility] Comment on above: Performed By: #### P T #### [facility] [address] [address] [address] Mirian Velasco Ketones Ql (U) Negative Normal NEGATIVE [facility] [facility] Comment on above: Performed By: #### P T #### [facility] [address] [place] [address] Dr. Mirian Velasco LEUKOCYTES SMALL Abnormal NEGATIVE [facility] Comment on above: Performed By: #### P T #### [facility] [address] [address] [address] Mirian Velasco Nitrite Ql (U) Negative Normal NEGATIVE [facility] Comment on above: Performed By: #### P T #### [facility] [address] [place] [address] Dr. Mirian Velasco pH (U) 7.0 [pH] Normal 5-9 [facility] Comment on above: Performed By: #### P T #### [facility] [address] [place] [address] Dr. Mirian Velasco SPEC GRAVITY 1.015 Normal 1.005-<=1.025 [facility] Comment on above: Performed By: #### P T #### [facility] [address] [place] [address] Dr. Mirian Velasco UA PROTEIN Negative Normal NEGATIVE/ TRACE [facility] Comment on above: Performed By: #### P T #### [facility] [address] [place] [address] Dr. Mirian Velasco UR MICRO IND INDICATED Normal [facility] Comment on above: Performed By: #### P T #### [facility] [address] [place] [address] Dr. Mirian Velasco Urobilinogen Qn (U) 0.2 {Lyubov'U}/dL Normal 0.2 - 1. 0 [facility] Comment on above: Performed By: #### P T #### [facility] [address] [place] [address] Dr. Mirian Velasco LACTATE/LACTIC ACIDon 2021 Lactate [Moles/Vol] 1.3 mmol/L Normal 0.4-1.9 [facility] Comment on above: Performed By: #### L ACT #### [facility] [address] [place] [address] Dr. Mirian Velasco LIPASEon 10-20-2022 Lipase [Catalytic activity/Vol] 49.0 U/L Critically low 73.0-393.0 [facility] Comment on above: Performed By: #### P T #### [facility] [address] [place] [address] Dr. Mirian Velasco PROF 14(COMP METB)on 022 Albumin [Mass/Vol] 3.2 g/dL Critically low 3.4-5.0 [facility] Comment on above: Performed By: #### P T #### [facility] [address] [place] [address] Dr. Mirian Velasco Albumin/Globulin [Mass ratio] 0.9 {ratio} Normal [facility] Comment on above: Performed By: #### P T #### [facility] [address] [place] [address] Dr. Mirian Velasco ALP [Catalytic activity/Vol] 129 U/L Critically high 46-116 [facility] Comment on above: Performed By: #### P T #### [facility] [address] [place] [address] Dr. Mirian Velasco ALT [Catalytic activity/Vol] 25 U/L Normal 14-59 [facility] Comment on above: Performed By: #### P T #### [facility] [address] [place] [address] Dr. Mirian Velasco Anion gap [Moles/Vol] 10.7 mmol/L Normal [facility] Comment on above: Performed By: #### P T #### [facility] [address] [place] [address] Dr. Mirian Velasco AST [Catalytic activity/Vol] 20 U/L Normal 15-37 [facility] Comment on above: Performed By: #### P T #### [facility] [address] [place] [address] Dr. Mirian Velasco Bilirubin [Mass/Vol] 0.5 mg/dL Normal 0.2-1.0 [facility] Comment on above: Performed By: #### P T #### [facility] [address] [address] [address] Mirian Velasco Calcium [Mass/Vol] 9.2 mg/dL Normal 8.5-10.1 [facility] Comment on above: Performed By: #### P T #### [facility] [address] [address] [address] Mirian Velasco Chloride [Moles/Vol] 102 mmol/L Normal 98-107 [facility] Comment on above: Performed By: #### P T #### [facility] [address] [address] [address] Mirian Velasco CO2 [Moles/Vol] 30.0 mmol/L Normal 21.0-32.0 [facility] Comment on above: Performed By: #### P T #### [facility] [address] [address] [address] Mirian Velasco Creatinine [Mass/Vol] 0.68 mg/dL Normal 0.55-1.02 [facility] Comment on above: Performed By: #### P T #### [facility] [address] [place] [address] Dr. Mirian Velasco EGFR-AF CITIZEN [place] >60 Normal >=60 [facility] Comment on above: Performed By: #### P T #### [facility] [address] [address] [address] Mirian Velasco EGFR-NON AF CITIZEN OF [place] >60 Normal >=60 [facility] Comment on above: Performed By: #### P T #### [facility] [address] [address] [address] Mirian Velasco Globulin (S) [Mass/Vol] 3.7 g/dL Normal [facility] Comment on above: Performed By: #### P T #### [facility] [address] [address] [address] Mirian Velasco Glucose [Mass/Vol] 109 mg/dL Critically high 74-106 [facility] Comment on above: Performed By: #### P T #### [facility] [address] [address] [address] Mirian Velasco Potassium [Moles/Vol] 3.7 mmol/L Normal 3.5-5.1 [facility] Comment on above: Performed By: #### P T #### [facility] [address] [address] [address] Mirian Velasco Protein [Mass/Vol] 6.9 g/dL Normal 6.4-8.2 [facility] Comment on above: Performed By: #### P T #### [facility] [address] [address] [address] Mirian Velasco Sodium [Moles/Vol] 139 mmol/L Normal 136-145 [facility] Comment on above: Performed By: #### P T #### [facility] [address] [place] [address] Dr. Mirian Velasco Urea nitrogen [Mass/Vol] 13.0 mg/dL Normal 7.0-18.0 [facility] Comment on above: Performed By: #### P T #### [facility] [address] [place] [address] Dr. Mirian Velasco Urea nitrogen/Creatinine [Mass ratio] 19.1 mg/mg Normal [facility] Comment on above: Performed By: #### P T #### [facility] [address] [place] [address] Dr. Mirian Velasco URINE MICROSCOPIC ONLYon BACTERIA TRACE Abnormal NONE SEEN [facility] Comment on above: Performed By: #### P T #### [facility] [address] [place] [address] Dr. Mirian Velasco Bacteria identified Cx Nom (U) INDICATED Normal [facility] Comment on above: Performed By: #### P T #### [facility] [address] [place] [address] Dr. Mirian Velasco CAST NONE SEEN Normal NONE SEEN [facility] Comment on above: Performed By: #### P T #### [facility] [address] [place], [place] [id number] Dr. Mirian Velasco Crystals LM Nom (Urine sed) NONE SEEN Normal NONE SEEN [facility] Comment on above: Performed By: #### P T #### [facility] [address] [address] [address] Mirian Velasco Epithelial cells LM Ql (Urine sed) MODERATE Abnormal NONE SEEN /RARE [facility] Comment on above: Performed By: #### P T #### [facility] [address] [address] [address] Mirian Velasco MUCOUS NONE SEEN Normal NONE SEEN [facility] Comment on above: Performed By: #### P T #### [facility] [address] [address] [address] Mirian Velasco RBC NONE SEEN Abnormal 0-2 [facility] Comment on above: Performed By: #### P T #### [facility] [address] [place] [address] Dr. Mirian Velasco WBC 2-5 Abnormal NONE SEEN [facility] Comment on above: Performed By: #### P T #### [facility] [address] [address] [address] Mirian Velasco YEAST PRESENT Abnormal NONE SEEN [facility] Comment on above: Result Comment: RARE BUDDING YEAST Performed By: #### P T #### [facility] [address] [address] [address] Mirian Velasco POINT OF CARE GLUCOSEon 10-06 Glucose [Mass/Vol] 131 mg/dL Critically high 74-106 [facility] Comment on above: Performed By: #### P OCGLUC ####[facility] [address] [address]Dr[address] Mirian Velasco Glucose [Mass/Vol] 113 mg/dL Critically high 74-106 [facility] Comment on above: Performed By: #### P OCGLUC ####[facility] [address] [address]Dr. Mirian Velasco XR FOOT RT 2Von 10-17-2022 [...] Date: 2022-10-17 18:04 Normal [facility] Covid-19 PCR ([facility])on SARS-CoV-2 (COVID-19) RNA JOSÉ MIGUEL+probe Ql (Unsp spec) Not detected Normal NOT DETECTED [facility] Comment on above: Result Comment: This test is not yet approved or cleared by the [place] FDA. When there are no FDA-approved or cleared tests available, and other criteria are met, FDA can make tests available under an emergency access mechanism called an Emergency Use Authorization (EUA). The EUA for this test is supported by the District Director of Health and Human Service's (HHS's) declaration [...] consistent with SARS-CoV-2. Performed By: #### C [facility] #### [facility] [address] [place] [address] Dr. Mirian Velasco Diagnostic Mammogram, Unilat eral [...] TO YOUR HEALTH. THE CURRENT CITIZEN OF [place] [employer] GUIDELINES RECOMMENDS ANNUAL MAMMOGRAPHY BEGINNING AT AGE 42 THIS FACILITY USES A REMINDER SYSTEM TO ENSURE ALL PATIENTS RECEIVE REMINDER NOTIFICATIONS AT THE APPROPRIATE TIME BASED ON THE RECOMMENDATIONS OF THIS EXAM. Board Certified Radiologist. Accredited by the ACR and FDA. Report reported and signed by Dawna Lizarraga on 09/28/2022 1307 Normal [facility] CBC AUTO DIFFon 09-26-2022 BASO # 0.1 103/ul Normal 0.0-0.1 [facility] Comment on above: Performed By: #### L ACT #### [facility] [address] [address] [address] Mirian Velasco Basophils/100 WBC (Bld) 0.8 % Normal 0.2-2.0 [facility] Comment on above: Performed By: #### L ACT #### [facility] [address] [address] [address] Mirian Velasco EO # 0.1 103/ul Normal 0.0-0.7 [facility] Comment on above: Performed By: #### L ACT #### [facility] [address] [address] [address] Mirian Velasco Eosinophils/100 WBC (Bld) 1.5 % Normal 0.9-7.0 [facility] Comment on above: Performed By: #### L ACT #### [facility] [address] [address] [address] Mirian Velasco Erythrocyte distribution width (RBC) [Ratio] 13.4 % Normal 11.0-15.0 [facility] Comment on above: Performed By: #### L ACT #### [facility] [address] [address] [address] Mirian Velasco Hematocrit (Bld) [Volume fraction] 41.3 % Normal 36.0-48.0 [facility] Comment on above: Performed By: #### L ACT #### [facility] [address] [address] [address] Mirian Velasco Hemoglobin (Bld) [Mass/Vol] 13.4 g/dL Normal 12.0-16.0 [facility] Comment on above: Performed By: #### L ACT #### [facility] [address] [place] [address] Dr. Mirian Velasco IG # 0.04 10e3/ul Critically high 0.00-0.03 [facility] Comment on above: Performed By: #### L ACT #### [facility] [address] [place] [address] Dr. Mirian Velasco IG % 0.5 % Normal 0.0-0.5 [facility] Comment on above: Performed By: #### L ACT #### [facility] [address] [place] [address] Dr. Mirian Velasco LYMPH # 2.5 103/ul Normal 1.2-3.8 [facility] Comment on above: Performed By: #### L ACT #### [facility] [address] [place] [address] Dr. Mirian Velasco Lymphocytes/100 WBC (Bld) 27.7 % Normal 20.5-60.0 [facility] Comment on above: Performed By: #### L ACT #### [facility] [address] [place] [address] Dr. Mirian Velasco MANUAL DIFF REQ NO Normal [facility] Comment on above: Performed By: #### L ACT #### [facility] [address] [place] [address] Dr. Mirian Velasco MCH (RBC) [Entitic mass] 27.6 pg Normal 26.7-34.0 [facility] Comment on above: Performed By: #### L ACT #### [facility] [address] [place] [address] Dr. Mirian Velasco MCHC (RBC) [Mass/Vol] 32.4 g/dL Normal 29.9-35.2 [facility] Comment on above: Performed By: #### L ACT #### [facility] [address] [place] [address] Dr. Mirian Velasco MCV (RBC) [Entitic vol] 85.0 fL Normal 81.0-99.0 [facility] Comment on above: Performed By: #### L ACT #### [facility] [address] [address] [address] Mirian Velasco MONO # 0.6 103/ul Normal 0.3-0.8 [facility] Comment on above: Performed By: #### L ACT #### [facility] [address] [address] [address] Mirian Velasco Monocytes/100 WBC (Bld) 6.9 % Normal 1.7-12.0 [facility] Comment on above: Performed By: #### L ACT #### [facility] [address] [address] [address] Mirian Velasco NEUT # 5.6 103/ul Normal 1.4-6.5 [facility] Comment on above: Performed By: #### L ACT #### [facility] [address] [place] [address] Dr. Mirian Velasco Neutrophils/100 WBC (Bld) 62.6 % Normal 43.0-75.0 [facility] Comment on above: Performed By: #### L ACT #### [facility] [address] [place] [address] Dr. Mirian Velasco Platelet mean volume (Bld) [Entitic vol] 8.6 fL Critically low 9.5-13.5 [facility] Comment on above: Performed By: #### L ACT #### [facility] [address] [address] [address] Mirian Velasco PLT 372 103/ul Normal 150-450 [facility] Comment on above: Performed By: #### L ACT #### [facility] [address] [address] [address] Mirian Velasco RBC 4.86 106/ul Normal 4.20-5.40 [facility] Comment on above: Performed By: #### L ACT #### [facility] [address] [address] [address] Mirian Velasco WBC 8.9 103/ul Normal 4.0-11.0 [facility] Comment on above: Performed By: #### L ACT #### [facility] [address] [place] [address] Dr. Mirian Velasco PROF CHEM 8 (BAS METB)on Anion gap [Moles/Vol] 8.0 mmol/L Normal [facility] Comment on above: Performed By: #### P T #### [facility] [address] [place] [address] Dr. Mirian Velasco Calcium [Mass/Vol] 9.0 mg/dL Normal 8.5-10.1 [facility] Comment on above: Performed By: #### P T #### [facility] [address] [place] [address] Dr. Mirian Velasco Chloride [Moles/Vol] 106 mmol/L Normal 98-107 [facility] Comment on above: Performed By: #### P T #### [facility] [address] [place] [address] Dr. Mirian Velasco CO2 [Moles/Vol] 30.3 mmol/L Normal 21.0-32.0 [facility] Comment on above: Performed By: #### P T #### [facility] [address] [place] [address] Dr. Mirian Velasco Creatinine [Mass/Vol] 0.71 mg/dL Normal 0.55-1.02 [facility] Comment on above: Performed By: #### P T #### [facility] [address] [place] [address] Dr. Mirian Velasco EGFR-AF CITIZEN OF [place] >60 Normal >=60 [facility] Comment on above: Performed By: #### P T #### [facility] [address] [place] [address] Dr. Mirian Velasco EGFR-NON AF CITIZEN OF [place] >60 Normal >=60 [facility] Comment on above: Performed By: #### P T #### [facility] [address] [place] [address] Dr. Mirian Velasco Glucose [Mass/Vol] 81 mg/dL Normal 74-106 [facility] Comment on above: Performed By: #### P T #### [facility] [address] [place] [address] Dr. Mirian Velasco Potassium [Moles/Vol] 4.3 mmol/L Normal 3.5-5.1 [facility] Comment on above: Performed By: #### P T #### [facility] [address] [address] [address] Mirian Velasco Sodium [Moles/Vol] 140 mmol/L Normal 136-145 [facility] Comment on above: Performed By: #### P T #### [facility] [address] [address] [address] Mirian Velasco Urea nitrogen [Mass/Vol] 16.0 mg/dL Normal 7.0-18.0 [facility] Comment on above: Performed By: #### P T #### [facility] [address] [address] [address] Mirian Velasco Urea nitrogen/Creatinine [Mass ratio] 22.5 mg/mg Normal [facility] Comment on above: Performed By: #### P T #### [facility] [address] [address] [address] Mirian Velasco C reactive protein [Mass/vol ume] in Serum or PlasmaOrdered By: Beto Snyder on 09-22-2022 CRP [Mass/Vol] 0.6 mg/dL 0.0-1.0 [facility] C-Reactive Proteinon 022 C-Reactive Protein 0.6 mg/dL Normal 0.0-1.0 mg/dL [facility] [employer] Other Erythrocyte Sedimentation Ra lian 09-22-2022 ESR (Bld) [Velocity] 4 mm/h Normal 0-29 [facility] [employer] Other Erythrocyte sedimentation ra te by Photometric methodOrdered By: Beto Snyder on 09-22-2022 ESR Photometric method (Bld) [Velocity] 4 mm/hr 0-29 [facility] Serum nuclear antibody titer Ordered By: Beto Snyder on 09-22-2022 Nuclear Ab (S) [Titer] Negative . [facility] Comment on above: Negative <1:80 Borde rline 1:80 Positive >1:80ICAP nomenclature: AC-0For more information about Hep-2 cell patterns useANApatterns.org, the official website for theInternational Consensus on Antinuclear Antibody (CHUYITA)Patterns (ICAP).Performed at: [employer] [facility] [address] [id number] Director: Erick Neville PhD, Phone: [phone] Serum or plasma rheumatoid f actor measurement (units/volume)Ordered By: Beto Snyder on 09-22-2022 Rheumatoid factor Qn [IU]/mL <14.0 [facility] Comment on above: Performed at: [employer] [facility] [address] [id number] Director: Erick Neville PhD, Phone: [phone] Serum or plasma thyroxine (T 4) measurement (mass/volume)Ordered By: Beto Snyder on 09-22-2022 T4 [Mass/Vol] 9.82 ug/dL 5.39-11.82 [facility] Serum or plasma uric acid me asurement (mass/volume)Ordered By: Beto Snyder on 09-22-2022 Urate [Mass/Vol] 4.2 mg/dL 2.6-7.2 [facility] TSH DL <= 0.005 mIU/L QnOrde red By: Beto Snyder on 09-22-2022 TSH Qn 1.98 m[IU]/L 0.45-5.33 [facility] Thyroid Stimulating Hormoneo n 09-22-2022 TSH Qn 1.55282151484 m[IU]/L Normal 0.45-5 .33 u[iU]/mL [facility] [employer] Other Thyroxine (T4) Totalon 09-22 Thyroxine (T4) Total 9.82 ug/dL Normal 5.39-11 .82 ug/dL [employer] Other Uric Acidon 09-22-2022 Urate [Mass/Vol] 4.4569113 mg/dL Normal 2.6-7.2 mg/dL [employer] Other XR knee BI 2Von 09-22-2022 XR knee BI 2V [facility] [employer] Other XR knee BI 2V [facility] [employer] Other XR knee BI 2V [address] [facility] [employer] Other XR knee [place] [address] [facility] [employer] Other XR knee BI 2V XRay Report [facility] [employer] Other XR knee BI 2V Signed [facility] [employer] Other XR knee BI 2V Patient: Darrian Leal MR#: [id number] [facility] [employer] Other XR knee BI 2V 863 [facility] [employer] Other XR knee BI 2V : 1970 Acct:[id number] [facility] [employer] Other XR knee BI 2V Age/Sex: 52 / F ADM Date: 09/22/22 [employer] Other XR knee BI 2V Loc: [facility] Room: Type : [facility] [employer] Other XR knee BI 2V Attending Dr: Beto Snyder MD [employer] Other XR knee BI 2V Copies to: Beto Snyder MD [employer] Other XR knee BI 2V Ordering Provider: Beto Snyder MD [employer] Other XR knee BI 2V Date of Service: 09/22/22 [employer] Other XR knee BI 2V XR/XR knee BI 2V: Knee pain [employer] Other XR knee BI 2V XR knee BI 2V 09/22/2022 9:23 AM [employer] Other XR knee BI 2V SIGNS AND SYMPTOMS: Bilateral knee pain right greater than left [employer] Other XR knee BI 2V PROTOCOL: Frontal an d lateral radiographs of the bilateral knees [employer] Other XR knee BI 2V COMPARISON: None [employer] Other XR knee BI 2V FINDINGS: [employer] Other XR knee BI 2V There is evidence of prior ACL repair in the left knee with mild narrowing of the weightbearing [employer] Other XR knee BI 2V joint spaces on the left. The joint spaces are otherwise preserved. There is no fracture or [employer] Other XR knee BI 2V dislocation. No join t effusion or soft tissue swelling. [employer] Other XR knee BI 2V XR/XR knee BI 2V [employer] Other XR knee BI 2V IMPRESSION: [employer] Other XR knee BI 2V Status post ACL repa ir on the left. [employer] Other XR knee BI 2V Mild degenerative changes are noted in the weightbearing joint spaces of the left. [employer] Other XR knee BI 2V No acute bony injury. [employer] Other XR knee BI 2V Impression dictated by: Howie Garcia M.D.09/22/2022 2:17 PM [employer] Other XR knee BI 2V Dictation Location: [place] [address] [employer] Other XR knee BI 2V Transcribed By: MARIO 09/22/22 [facility] [employer] Other XR knee BI 2V Dictated By: Howie Garcia II, MD 09/22/22 [facility] [employer] Other XR knee BI 2V Signed By: [employer] Other XR knee BI 2V 09/22/22 [facility] [employer] Other XR shoulder BI min 2Von 11- XR shoulder BI min 2V XR/XR shoulder BI min 2V: Shoulder pain [employer] Other XR shoulder BI min 2V XR shoulder BI min 2V 09/22/2022 9:23 AM [employer] Other XR shoulder BI min 2V SIGNS AND SYMPTOMS : Bilateral shoulder pain with limited range of motion [employer] [facility] Other XR shoulder BI min 2V PROTOCOL: Frontal, Grashey, scapular Y, and axillary views of the bilateral shoulders [facility] Other XR shoulder BI min 2V COMPARISON: 02/26/2018 [facility] Other XR shoulder BI min 2V There has been bon y resorption of the lateral margin of the clavicle on the right suggesting [facility] Other XR shoulder BI min 2V osteomyelitis is w hich may be degenerative or traumatic. Mild hypertrophy of the AC joint is noted. [facility] Other XR shoulder BI min 2V The glenohumeral j oint is preserved on the right. There is subcortical sclerosis greater tuberosity [facility] Other XR shoulder BI min 2V of the right suggesting underlying rotator cuff abnormalities. This is new when compared to the [facility] Other XR shoulder BI min 2V prior exam. The visualized right hemithorax is grossly intact. [facility] Other XR shoulder BI min 2V There is mild hypertrophy of the left acromioclavicular joint. There is mild subcortical sclerosis [facility] Other XR shoulder BI min 2V of the greater tuberosity in the left suggesting underlying rotator cuff abnormalities. The [facility] Other XR shoulder BI min 2V glenohumeral joint is preserved. There is no fracture or dislocation. Visualized left hemithorax is [facility] Other XR shoulder BI min 2V grossly intact. [employer] Other XR shoulder BI min 2V There is partial visualization of intervertebral disc arthroplasty is noted within the lower [facility] Other XR shoulder BI min 2V cervical spine. 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 [facility] Other XR shoulder BI min 2V Rudimentary ribs a re noted at C7, right greater than left [facility] Other XR shoulder BI min 2V Impression dictate d by: Howie Garcia M.D.09/22/2022 2:20 PM [facility] Other XR shoulder BI min 2V Transcribed By: KT Thorpe 09/22/22 [facility] Other XR shoulder BI min 2V Dictated By: Howie Garcia II, MD 09/22/22 [facility] Other XR shoulder BI min 2V 09/22/22 [facility] Other SCREENING MAMMOGRAM W/RUSSEL, BILATERAL*on 09-14-2022 SCREENING [...] IMPORTANT TO YOUR HEALTH. CURRENT CITIZEN OF [place] [employer] GUIDELINES RECOMMENDS ANNUAL MAMMOGRAPHY BEGINNING AT AGE 42. THIS FACILITY USUALLY USES A REMINDER SYSTEM TO ENSURE ALL POSITIONS RECEIVED REMINDER NOTIFICATIONS AT THE TIME BASED ON THE RECOMMENDATIONS OF THIS EXAM. Report reported and signed by Zaida Diaz on 09/16/2022 1334 Normal [facility] [employer] Operator Tobacco Screening.on 022 Adult depression screening assessment No [facility] DO Work Phone: Tobacco use status [facility]PH[facility] b) No [facility] DO Work Phone: COVID Quick Testingon 2021 Result Negative [facility] Other AMYLASEon 04-17-2022 Amylase [Catalytic activity/Vol] 38 U/L Normal 25-115 [facility] Comment on above: Performed By: #### P T #### [facility] [address] [place] [address] Dr. Mirian Velasco CBC AUTO DIFFon 04-17-2022 BASO # 0.1 103/ul Normal 0.0-0.1 [facility] Comment on above: Performed By: #### L ACT #### [facility] [address] [place] [address] Dr. Mirian Velasco Basophils/100 WBC (Bld) 1.0 % Normal 0.2-2.0 [facility] Comment on above: Performed By: #### L ACT #### [facility] [address] [place] [address] Dr. Mirian Velasco EO # 0.2 103/ul Normal 0.0-0.7 [facility] Comment on above: Performed By: #### L ACT #### [facility] [address] [address] [address] Mirian Velasco Eosinophils/100 WBC (Bld) 3.3 % Normal 0.9-7.0 [facility] Comment on above: Performed By: #### L ACT #### [facility] [address] [place] [address] Dr. Mirian Velasco Erythrocyte distribution width (RBC) [Ratio] 12.0 % Normal 11.0-15.0 [facility] Comment on above: Performed By: #### L ACT #### [facility] [address] [place] [address] Dr. Mirian Velasco Hematocrit (Bld) [Volume fraction] 37.3 % Normal 36.0-48.0 [facility] Comment on above: Performed By: #### L ACT #### [facility] [address] [place] [address] Dr. Mirian Velasco Hemoglobin (Bld) [Mass/Vol] 12.1 g/dL Normal 12.0-16.0 [facility] Comment on above: Performed By: #### L ACT #### [facility] [address] [place] [address] Dr. Mirian Velasco IG # 0.03 10e3/ul Normal 0.00-0.03 [facility] Comment on above: Performed By: #### L ACT #### [facility] [address] [place] [address] Dr. Mirian Velasco IG % 0.4 % Normal 0.0-0.5 [facility] Comment on above: Performed By: #### L ACT #### [facility] [address] [place] [address] Dr. Mirian Velasco LYMPH # 1.8 103/ul Normal 1.2-3.8 [facility] Comment on above: Performed By: #### L ACT #### [facility] [address] [place] [address] Dr. Mirian Velasco Lymphocytes/100 WBC (Bld) 25.2 % Normal 20.5-60.0 [facility] Comment on above: Performed By: #### L ACT #### [facility] [address] [place] [address] Dr. Mirian Velasco MANUAL DIFF REQ NO Normal [facility] Comment on above: Performed By: #### L ACT #### [facility] [address] [place] [address] Dr. Mirian Velasco MCH (RBC) [Entitic mass] 29.0 pg Normal 26.7-34.0 [facility] Comment on above: Performed By: #### L ACT #### [facility] [address] [place] [address] Dr. Mirian Velasco MCHC (RBC) [Mass/Vol] 32.4 g/dL Normal 29.9-35.2 [facility] Comment on above: Performed By: #### L ACT #### [facility] [address] [place] [address] Dr. Mirian Velasco MCV (RBC) [Entitic vol] 89.4 fL Normal 81.0-99.0 [facility] Comment on above: Performed By: #### L ACT #### [facility] [address] [place] [address] Dr. Mirian Velasco MONO # 0.4 103/ul Normal 0.3-0.8 [facility] Comment on above: Performed By: #### L ACT #### [facility] [address] [place] [address] Dr. Mirian Velasco Monocytes/100 WBC (Bld) 5.8 % Normal 1.7-12.0 [facility] Comment on above: Performed By: #### L ACT #### [facility] [address] [place] [address] Dr. Mirian Velasco NEUT # 4.6 103/ul Normal 1.4-6.5 [facility] Comment on above: Performed By: #### L ACT #### [facility] [address] [place] [address] Dr. Mirian Velasco Neutrophils/100 WBC (Bld) 64.3 % Normal 43.0-75.0 [facility] Comment on above: Performed By: #### L ACT #### [facility] [address] [place] [address] Dr. Mirian Velasco Platelet mean volume (Bld) [Entitic vol] 8.6 fL Critically low 9.5-13.5 [facility] Comment on above: Performed By: #### L ACT #### [facility] [address] [address] [address] Mirian Velasco PLT 597 103/ul Critically high 150-450 [facility] Comment on above: Performed By: #### L ACT #### [facility] [address] [address] [address] Mirian Velasco RBC 4.17 106/ul Critically low 4.20-5.40 [facility] Comment on above: Performed By: #### L ACT #### [facility] [address] [address] [address] Mirian Velasco WBC 7.2 103/ul Normal 4.0-11.0 [facility] Comment on above: Performed By: #### L ACT #### [facility] [address] [address] [address] ABD/PELVIS WO CONon [...] Date: 2022-04-17 11:19 Normal [facility] URINE PROFILEon 2 Bilirubin Ql (U) Negative Normal NEGATIVE [facility] Comment on above: Performed By: #### P T #### [facility] [address] [place] [address] Dr. Mirian Velasco Clarity (U) CLEAR Normal CLEAR [facility] Comment on above: Performed By: #### P T #### [facility] [address] [address] [address] Mirian Velasco Color (U) YELLOW Normal YELLOW [facility] Comment on above: Performed By: #### P T #### [facility] [address] [place] [address] Dr. Mirian KING A micrscopic examination will be performed if indicated. Normal [facility] Comment on above: Performed By: #### P T #### [facility] [address] [address] [address] Mirian Velasoc Glucose Ql (U) Negative Normal NEGATIVE [facility] Comment on above: Performed By: #### P T #### [facility] [address] [address] [address] Mirian Velasco Hemoglobin Ql (U) Negative Normal NEGATIVE [facility] Comment on above: Performed By: #### P T #### [facility] [address] [address] [address] Mirian Velasco Ketones Ql (U) Negative Normal NEGATIVE [facility] Comment on above: Performed By: #### P T #### [facility] [address] [place] [address] Dr. Mirian Velasco LEUKOCYTES Negative Normal NEGATIVE [facility] Comment on above: Performed By: #### P T #### [facility] [address] [place] [address] Dr. Mirian Velasco Nitrite Ql (U) Negative Normal NEGATIVE [facility] Comment on above: Performed By: #### P T #### [facility] [address] [place] [address] Dr. Mirian Velasco pH (U) 5.5 [pH] Normal 5-9 [facility] Comment on above: Performed By: #### P T #### [facility] [address] [place] [address] Dr. Mirian Velasco SPEC GRAVITY >=1.030 Abnormal 1.005-<=1.025 [facility] Comment on above: Performed By: #### P T #### [facility] [address] [place] [address] Dr. Mirian Velasco UA PROTEIN Negative Normal NEGATIVE/ TRACE [facility] Comment on above: Performed By: #### P T #### [facility] [address] [place] [address] Dr. Mirian Velasco UR MICRO IND NOT INDICATED Normal [facility] Comment on above: Performed By: #### P T #### [facility] [address] [place] [address] Dr. Mirian Velasco Urobilinogen Qn (U) 0.2 {Lyubov'U}/dL Normal 0.2 - 1. 0 [facility] Comment on above: Performed By: #### P T #### [facility] [address] [place] [address] Dr. Mirian Velasco LIPASEon 04-17-2022 Lipase [Catalytic activity/Vol] 117.0 U/L Normal 73.0-393.0 [facility] Comment on above: Performed By: #### P T #### [facility] [address] [place] [address] Dr. Mirian Velasco PROF 14(COMP METB)on 022 Albumin [Mass/Vol] 3.5 g/dL Normal 3.4-5.0 [facility] Comment on above: Performed By: #### P T #### [facility] [address] [place] [address] Dr. Mirian Velasco Albumin/Globulin [Mass ratio] 0.9 {ratio} Normal [facility] Comment on above: Performed By: #### P T #### [facility] [address] [place] [address] Dr. Mirian Velasco ALP [Catalytic activity/Vol] 237 U/L Critically high 46-116 [facility] Comment on above: Performed By: #### P T #### [facility] [address] [place] [address] Dr. Mirian Velasco ALT [Catalytic activity/Vol] 53 U/L Normal 14-59 [facility] Comment on above: Performed By: #### P T #### [facility] [address] [place] [address] Dr. Mirian Velasco Anion gap [Moles/Vol] 11.0 mmol/L Normal [facility] Comment on above: Performed By: #### P T #### [facility] [address] [place] [address] Dr. Mirian Velasco AST [Catalytic activity/Vol] 45 U/L Critically high 15-37 [facility] Comment on above: Performed By: #### P T #### [facility] [address] [place] [address] Dr. Mirian Velasco Bilirubin [Mass/Vol] 0.2 mg/dL Normal 0.2-1.0 [facility] Comment on above: Performed By: #### P T #### [facility] [address] [place] [address] Dr. Mirian Velasco Calcium [Mass/Vol] 9.3 mg/dL Normal 8.5-10.1 [facility] Comment on above: Performed By: #### P T #### [facility] [address] [place] [address] Dr. Mirian Velasco Chloride [Moles/Vol] 105 mmol/L Normal 98-107 [facility] Comment on above: Performed By: #### P T #### [facility] [address] [place] [address] Dr. Mirian Velasco CO2 [Moles/Vol] 29.5 mmol/L Normal 21.0-32.0 [facility] Comment on above: Performed By: #### P T #### [facility] [address] [address] [address] Mirian Velasco Creatinine [Mass/Vol] 0.69 mg/dL Normal 0.55-1.02 [facility] Comment on above: Performed By: #### P T #### [facility] [address] [place] [address] Dr. Mirian Velasco EGFR-AF CITIZEN OF [place] >110 Normal >=60 [facility] Comment on above: Performed By: #### P T #### [facility] [address] [place] [address] Dr. Mirian Velasco EGFR-NON AF CITIZEN OF [place] >90 Normal >=60 [facility] Comment on above: Performed By: #### P T #### [facility] [address] [address] [address] Mirian Velasco Globulin (S) [Mass/Vol] 4.0 g/dL Normal [facility] Comment on above: Performed By: #### P T #### [facility] [address] [place] [address] Dr. Mirian Velasco Glucose [Mass/Vol] 107 mg/dL Critically high 74-106 [facility] Comment on above: Performed By: #### P T #### [facility] [address] [place] [address] Dr. Mirian Velasco Potassium [Moles/Vol] 4.5 mmol/L Normal 3.5-5.1 [facility] Comment on above: Performed By: #### P T #### [facility] [address] [place] [address] Dr. Mirian Velasco Protein [Mass/Vol] 7.5 g/dL Normal 6.4-8.2 [facility] Comment on above: Performed By: #### P T #### [facility] [address] [place], [place] [address] Dr. Mirian Velasco Sodium [Moles/Vol] 141 mmol/L Normal 136-145 [facility] Comment on above: Performed By: #### P T #### [facility] [address] [place], [place] [address] Dr. Mirian Velasco Urea nitrogen [Mass/Vol] 11.0 mg/dL Normal 7.0-18.0 [facility] Comment on above: Performed By: #### P T #### [facility] [address] [place], [place] [address] Dr. Mirian Velasco Urea nitrogen/Creatinine [Mass ratio] 15.9 mg/mg Normal [facility] Comment on above: Performed By: #### P T #### [facility] [address] [address] [address] Mirian Velasco XR CHEST 1 Von 04-17-2022 XR CHEST 1 V EXAM: Chest x-ray HISTORY: Pain. COMPARISON: 02/20/2022 TECHNIQUE: AP portable upright view of the chest. FINDINGS: Heart and Vascularity are unremarkable. Lungs are free of focal infiltrates. No effusions are noted. Impression: No acute heart or lung disease identified. Electronically authenticated by: NICKI BUTT Date: 2022-04-17 11:03 Normal [facility] Basic metabolic 2000 panelon 04-05-2022 Anion gap [Moles/Vol] 13 mmol/L Normal 9-18 [facility] Comment on above: Order Comment: Speci men Type: BLOOD SPECIMEN Ordering Facility: [facility] Address: [address] [id number] Performed By: #### 5 8410-2 #### [facility] CLIA [id number] [address] [place] [address] [place] Calcium [Mass/Vol] 9.0 mg/dL Normal 8.5-10.2 [facility] Comment on above: Order Comment: Speci men Type: BLOOD SPECIMEN Ordering Facility: [facility] Address: [address] [id number] Performed By: #### 5 8410-2 #### [facility] CLIA [id number] [place] [address] [place] Chloride [Moles/Vol] 104 mmol/L Normal 97-105 [facility] Comment on above: Order Comment: Speci men Type: BLOOD SPECIMEN Ordering Facility: [facility] Address: [address] [place] [address] Performed By: #### 5 8410-2 #### [facility] CLIA [id number] [address] [place] [address] [place] CO2 [Moles/Vol] 25 mmol/L Normal 22-30 [facility] Comment on above: Order Comment: Speci men Type: BLOOD SPECIMEN Ordering Facility: [facility] Address: [address] [place] [address] Performed By: #### 5 8410-2 #### [facility] CLIA [id number] [address] [place] [address] [place] Creatinine [Mass/Vol] 0.65 mg/dL Normal 0.58-0.96 [facility] Comment on above: Order Comment: Speci men Type: BLOOD SPECIMEN Ordering Facility: [facility] Address: [address] [place] [address] Performed By: #### 5 8410-2 #### [facility] CLIA [id number] [address] [place] [address] [place] ESTIMATED GLOMERULAR FILTRATION RATE 108 mL/min/1.73m??? Normal >=60 [facility] Comment on above: Order Comment: Speci men Type: BLOOD SPECIMEN Ordering Facility: [facility] Address: [address] [place] [address] Result Comment: Mary mated Glomerular Filtration Rate [...] GFR. Performed By: #### 5 8410-2 #### [facility] CLIA [id number] [address] [place] [address] [place] Glucose [Mass/Vol] 109 mg/dL High 74-99 [facility] Comment on above: Order Comment: Leanne terry Type: BLOOD SPECIMEN Ordering Facility: [facility] Address: [address] [place] [address] Result Comment: The [employer] Diabetes Association (ADA) provides guidance for cutoff [...] Standards of Medical Care in Diabetes 2016, [employer] Diabetes Association. Diabetes Care. 2016.39(Suppl 1). Performed By: #### 5 8410-2 #### [facility] CLIA [id number] [address] [place] [address] [place] Potassium [Moles/Vol] 3.9 mmol/L Normal 3.7-5.1 [facility] Comment on above: Order Comment: Leanne terry Type: BLOOD SPECIMEN Ordering Facility: [facility] Address: [address] [place] [address] Performed By: #### 5 8410-2 #### [facility] CLIA [id number] [address] [place] [address] [place] Sodium [Moles/Vol] 142 mmol/L Normal 136-144 [facility] Comment on above: Order Comment: Leanne terry Type: BLOOD SPECIMEN Ordering Facility: [facility] Address: [address] [place] [address] Performed By: #### 5 8410-2 #### [facility] CLIA [id number] [address] [place] [address] [place] Urea nitrogen [Mass/Vol] 7 mg/dL Normal 7-21 [facility] Comment on above: Order Comment: Speci men Type: BLOOD SPECIMEN Ordering Facility: [facility] Address: [address] [place] [address] Performed By: #### 5 8410-2 #### [facility] CLIA [id number] [address] [place] [address] [place] CBC W Auto Differential pane l (Bld)on 04-05-2022 Basophils (Bld) [#/Vol] 0.05 10*3/uL Normal <0.11 [facility] Comment on above: Order Comment: Speci men Type: BLOOD SPECIMENOrdering Facility: [facility] Address: [address] [place] [address] Performed By: #### B MP #### [address] [place] [id number] Basophils/100 WBC (Bld) 0.7 % Normal [facility] Comment on above: Order Comment: Speci men Type: BLOOD SPECIMENOrdering Facility: [facility] Address: [address] [place] [address] Performed By: #### B MP #### [address] Differential cell count method Nom (Bld) Auto Normal [facility] Comment on above: Order Comment: Speci men Type: BLOOD SPECIMENOrdering Facility: [facility] Address: [address] [place] [address] Performed By: #### B MP #### [address] [place] [id number] Eosinophils (Bld) [#/Vol] 0.55 10*3/uL High <0.46 [facility] Comment on above: Order Comment: Speci men Type: BLOOD SPECIMENOrdering Facility: [facility] Address: [address] [place] [address] Performed By: #### B MP #### [address] [place] [id number] Eosinophils/100 WBC (Bld) 8.2 % Normal [facility] Comment on above: Order Comment: Speci men Type: BLOOD SPECIMENOrdering Facility: [facility] Address: [address] [place] [address] Performed By: #### B MP #### [id number] Erythrocyte distribution width (RBC) [Ratio] 12.8 % Normal 11.5-15.0 [facility] Comment on above: Order Comment: Speci men Type: BLOOD SPECIMENOrdering Facility: [facility] Address: [address] [place] [address] Performed By: #### B MP #### [address] [place] [id number] Hematocrit (Bld) [Volume fraction] 31.1 % Low 36.0-46.0 [facility] Comment on above: Order Comment: Speci men Type: BLOOD SPECIMENOrdering Facility: [facility] Address: [address] [place] [address] Performed By: #### B MP #### [address] [place] [id number] Hemoglobin (Bld) [Mass/Vol] 10.5 g/dL Low 11.5-15.5 [facility] Comment on above: Order Comment: Speci men Type: BLOOD SPECIMENOrdering Facility: [facility] Address: [address] [place] [address] Performed By: #### B MP #### [place] [id number] IMMATURE GRAN % 0.4 % Normal [facility] Comment on above: Order Comment: Speci men Type: BLOOD SPECIMENOrdering Facility: [facility] Address: [address] [place] [address] Performed By: #### B MP #### [phone] IMMATURE GRAN ABS 0.03 k/uL Normal <0.10 [facility] Comment on above: Order Comment: Speci men Type: BLOOD SPECIMENOrdering Facility: [facility] Address: [address] [place] [address] Performed By: #### B MP #### [place] [phone] Lymphocytes (Bld) [#/Vol] 1.47 10*3/uL Normal 1.00-4.00 [facility] Comment on above: Order Comment: Speci men Type: BLOOD SPECIMENOrdering Facility: [facility] Address: [address] [place] [address] Performed By: #### B MP #### [phone] Lymphocytes/100 WBC (Bld) 22.0 % Normal [facility] Comment on above: Order Comment: Speci men Type: BLOOD SPECIMENOrdering Facility: [facility] Address: [address] [place] [address] Performed By: #### B MP #### [place] [phone] MCH (RBC) [Entitic mass] 29.9 pg Normal 26.0-34.0 [facility] Comment on above: Order Comment: Speci men Type: BLOOD SPECIMENOrdering Facility: [facility] Address: [address] [place] [address] Performed By: #### B MP #### [phone] MCHC (RBC) [Mass/Vol] 33.8 g/dL Normal 30.5-36.0 [facility] Comment on above: Order Comment: Speci men Type: BLOOD SPECIMENOrdering Facility: [facility] Address: [address] [place] [address] Performed By: #### B MP #### [place] [phone] MCV (RBC) [Entitic vol] 88.6 fL Normal 80.0-100.0 [facility] Comment on above: Order Comment: Speci men Type: BLOOD SPECIMENOrdering Facility: [facility] Address: [address] [place], [place] [address] Performed By: #### B MP #### [place] [phone] Monocytes (Bld) [#/Vol] 0.50 10*3/uL Normal <0.87 [facility] Comment on above: Order Comment: Speci men Type: BLOOD SPECIMENOrdering Facility: [facility] Address: [address] [place] [address] Performed By: #### B MP #### [phone] Monocytes/100 WBC (Bld) 7.5 % Normal [facility] Comment on above: Order Comment: Speci men Type: BLOOD SPECIMENOrdering Facility: [facility] Address: [address] [place] [address] Performed By: #### B MP #### [phone] Neutrophils (Bld) [#/Vol] 4.08 10*3/uL Normal 1.45-7.50 [facility] Comment on above: Order Comment: Speci men Type: BLOOD SPECIMENOrdering Facility: [facility] Address: [address] [place] [address] Performed By: #### B MP #### [phone] Neutrophils/100 WBC (Bld) 61.2 % Normal [facility] Comment on above: Order Comment: Speci men Type: BLOOD SPECIMENOrdering Facility: [facility] Address: [address] [place] [address] Performed By: #### B MP #### [place] [phone] Nucleated RBC (Bld) [#/Vol] 10*3/uL Normal <0.01 [facility] Comment on above: Order Comment: Speci men Type: BLOOD SPECIMENOrdering Facility: [facility] Address: [address] [place] [address] Performed By: #### B MP #### [place] [address] Nucleated RBC/100 WBC (Bld) [Ratio] 0.0 /100 WBC Normal [facility] Comment on above: Order Comment: Speci men Type: BLOOD SPECIMENOrdering Facility: [facility] Address: [address] [place] [address] Performed By: #### B MP #### [place] [phone] Platelet mean volume (Bld) [Entitic vol] 8.9 fL Low 9.0-12.7 [facility] Comment on above: Order Comment: Speci men Type: BLOOD SPECIMENOrdering Facility: [facility] Address: [address] [place] [address] Performed By: #### B MP #### [place] [phone] Platelets (Bld) [#/Vol] 455 10*3/uL High 150-400 [facility] Comment on above: Order Comment: Speci men Type: BLOOD SPECIMENOrdering Facility: [facility] Address: [address] [place] [address] Performed By: #### B MP #### [place] [phone] RBC (Bld) [#/Vol] 3.51 10*6/uL Low 3.90-5.20 [facility] Comment on above: Order Comment: Speci men Type: BLOOD SPECIMENOrdering Facility: [facility] Address: [address] [place] [address] Performed By: #### B MP #### [place] [phone] WBC (Bld) [#/Vol] 6.68 10*3/uL Normal 3.70-11.00 [facility] Comment on above: Order Comment: Speci men Type: BLOOD SPECIMENOrdering Facility: [facility] Address: [address] [place] [address] Performed By: #### B MP #### [facility] [address] [place] [id number] CNDSon 04-05-2022 [facility] HNO ID: [id number] Author: Jessi Sheets APRN.LOCKER ROOM SUPERVISOR Service: Colorectal Author Type: Nurse Practitioner Type: Discharge Summary Filed: 04/05/2022 11:10 AM Note Text: Attestation signed by Mary Obrien MD at 04/05/2022 12:54 PM [facility] STAFF PHYSICIAN NOTE OF PERSONAL INVOLVEMENT IN [...] of the summary. CONSULTING TEAMS DURING HOSPITALIZATION: [facility] Treatment Team: Attending Provider: Mary [...] only. Pain controlled with TAPs and a PEEL OVEN TENDER. Remained nauseated. POD4 re-advanced to full liquids [...] by mo (more content not included)... Normal [facility] Magnesium SerPl-mCncon 04-05 Magnesium [Mass/Vol] 2.0 mg/dL Normal 1.7-2.3 [facility] Comment on above: Order Comment: Speci men Type: BLOOD SPECIMEN [facility] Address: [address] [place] [address] Performed By: #### 5 8410-2 #### [facility] CLIA [id number] [place] [address] [place] NURSING PROGon 04-05-2022 NURSING PROG HNO ID: [id number] Author: Liliana Mayer RN Service: ? 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 This note was completed by: Liliana Mayer [facility] NURSING PROG HNO ID: [id number] Author: Liliana Mayer RN Service: ? Author [...] This note was completed by: Liliana Mayer [facility] NURSING PROG HNO ID: [id number] Author: Tez Gu RN Service: ? Author Type: Registered Nurse Type: Nursing Progress Note Filed: 04/04/2022 10:58 PM Note Text: Nursing Progress Note Patient Name: Mary Leal Patient Location: / __ Daily Note:04/04/22 2140 Pt is alert and oriented x3. Pt mabulating independently. Surgical sites intact. Pt refusing IVF, pt states she drinks enough water. This note was completed by: Tez Gu [facility] NUTRITIONon 04-05-2022 NUTRITION HNO ID: [id number] Author: Merced Morales DTR Service: Nutrition Therapy Author Type: Change Management Consultant Type: Nutrition Filed: 04/05/2022 10:42 AM Note Text: NUTRITION THERAPY SHELVING SUPERVISOR NOTE SERVICE DATE: 04/05/2022 SERVICE TIME: 9:45 AM Visit Type: Length of Stay Plan of Care: Supplements: Impact [place] Follow-Up: [facility] Reassessment Nursing Admission Assessment Malnutrition Score: 0 [...] DATE: April 05, 2022 TIME: 9:54 AM [facility] Phosphate SerPl-mCncon 04-05 Phosphate [Mass/Vol] 4.6 mg/dL Normal 2.7-4.8 [facility] Comment on above: Order Comment: Speci men Type: BLOOD SPECIMEN [facility] Address: [address] [place] [address] Performed By: #### 5 8410-2 #### [facility] CLIA [id number] [address] [place] [address] [place] Basic metabolic 2000 panelon 04-04-2022 Anion gap [Moles/Vol] 10 mmol/L Normal 9-18 [facility] Comment on above: Order Comment: Speci men Type: BLOOD SPECIMENOrdering Facility: [facility] Address: [address] [place] [address] Performed By: #### 2 4321-2, , 2776-11 ####[facility] [id number] [place] [address] [place] Calcium [Mass/Vol] 8.9 mg/dL Normal 8.5-10.2 [facility] Comment on above: Order Comment: Speci men Type: BLOOD SPECIMENOrdering Facility: [facility] Address: [address] [place] [address] Performed By: #### 2 4321-2, , 2776-11 ####[facility] [id number] [place] [address] [place] Chloride [Moles/Vol] 104 mmol/L Normal 97-105 [facility] Comment on above: Order Comment: Speci men Type: BLOOD SPECIMENOrdering Facility: [facility] Address: [address] [place] [address] Performed By: #### 2 4321-2, , 2776-11 ####[facility] [id number] [place] [address] [place] CO2 [Moles/Vol] 26 mmol/L Normal 22-30 [facility] Comment on above: Order Comment: Speci men Type: BLOOD SPECIMENOrdering Facility: [facility] Address: [address] [place], [place] [address] Performed By: #### 2 4321-2, , 2776-11 ####[facility] [id number] [place] [address] [place] Creatinine [Mass/Vol] 0.56 mg/dL Low 0.58-0.96 [facility] Comment on above: Order Comment: Speci men Type: BLOOD SPECIMENOrdering Facility: [facility] Address: [address] [id number] Performed By: #### 2 4321-2, , 2776-11 ####[facility] [id number] [place] [address] [place] ESTIMATED GLOMERULAR FILTRATION RATE 112 mL/min/1.73m??? Normal >=60 [facility] Comment on above: Order Comment: Leanne men Type: BLOOD SPECIMENOrdering Facility: [facility] Address: [address] [id number] Result Comment: Mary mated Glomerular Filtration Rate [...] Performed By: #### 2 4321-2, , 2776-11 ####[facility] [id number] [place] [address] [place] Glucose [Mass/Vol] 112 mg/dL High 74-99 [facility] Comment on above: Order Comment: Leanne terry Type: BLOOD SPECIMENOrdering Facility: [facility] Address: [address] [place], [place] [address] Result Comment: The [employer] Diabetes Association (ADA) provides guidance for cutoff [...] Standards of Medical Care in Diabetes 2016, [employer] Diabetes Association. Diabetes Care. 2016.39(Suppl 1). Performed By: #### 2 4321-2, , 2776- ####[facility] [id number] [place] [address] [place] Potassium [Moles/Vol] 3.9 mmol/L Normal 3.7-5.1 [facility] Comment on above: Order Comment: Speci men Type: BLOOD SPECIMENOrdering Facility: [facility] Address: [address] [place] [address] Performed By: #### 2 4321-2, , 2776-11 ####[facility] [id number] [place] [address] [place] Sodium [Moles/Vol] 140 mmol/L Normal 136-144 [facility] Comment on above: Order Comment: Speci men Type: BLOOD SPECIMENOrdering Facility: [facility] Address: [address] [place] [address] Performed By: #### 2 4321-2, , 2776-11 ####[facility] [id number] [place] [address] [place] Urea nitrogen [Mass/Vol] 3 mg/dL Low 7-21 [facility] Comment on above: Order Comment: Speci men Type: BLOOD SPECIMENOrdering Facility: [facility] Address: [address] [place] [address] Performed By: #### 2 4321-2, , 2776-11 ####[facility] [id number] [place] [address] [place] CBC W Auto Differential pane l (Bld)on 04-04-2022 Basophils (Bld) [#/Vol] 0.03 10*3/uL Normal <0.11 [facility] Comment on above: Order Comment: Speci men Type: BLOOD SPECIMEN [facility] Address: [address] [place] [address] Performed By: #### 5 7021-8 #### [facility] CLIA [id number] [address] [place] [address] [place] Basophils/100 WBC (Bld) 0.5 % Normal [facility] Comment on above: Order Comment: Speci men Type: BLOOD SPECIMEN [facility] Address: [address] [place] [address] Performed By: #### 5 7021-8 #### [facility] CLIA [id number] [address] [place] [address] [place] Differential cell count method Nom (Bld) Auto Normal [facility] Comment on above: Order Comment: Speci men Type: BLOOD SPECIMEN [facility] Address: [address] [place] [address] Performed By: #### 5 7021-8 #### [facility] CLIA [id number] [address] [place] [address] [place] Eosinophils (Bld) [#/Vol] 0.48 10*3/uL High <0.46 [facility] Comment on above: Order Comment: Speci men Type: BLOOD SPECIMEN [facility] Address: [address] [place] [address] Performed By: #### 5 7021-8 #### [facility] CLIA [id number] [address] [place] [address] [place] Eosinophils/100 WBC (Bld) 7.7 % Normal [facility] Comment on above: Order Comment: Speci men Type: BLOOD SPECIMEN [facility] Address: [address] [place] [address] Performed By: #### 5 7021-8 #### [facility] CLIA [id number] [address] [place] [address] [place] Erythrocyte distribution width (RBC) [Ratio] 12.7 % Normal 11.5-15.0 [facility] Comment on above: Order Comment: Speci men Type: BLOOD SPECIMEN [facility] Address: [address] [place] [address] Performed By: #### 5 7021-8 #### [facility] CLIA [id number] [address] [place] [address] Hematocrit (Bld) [Volume fraction] 31.2 % Low 36.0-46.0 [facility] Comment on above: Order Comment: Speci men Type: BLOOD SPECIMEN [facility] Address: [address] [place] [address] Performed By: #### 5 7021-8 #### [facility] CLIA [id number] [address] [place] [address] [place] Hemoglobin (Bld) [Mass/Vol] 10.7 g/dL Low 11.5-15.5 [facility] Comment on above: Order Comment: Speci men Type: BLOOD SPECIMEN [facility] Address: [address] [place] [address] Performed By: #### 5 7021-8 #### [facility] CLIA [id number] [address] [place] [address] [place] IMMATURE GRAN % 0.5 % Normal [facility] Comment on above: Order Comment: Speci men Type: BLOOD SPECIMEN [facility] Address: [address] [place] [address] Performed By: #### 5 7021-8 #### [facility] CLIA [id number] [address] [place] [address] IMMATURE GRAN ABS 0.03 k/uL Normal <0.10 [facility] Comment on above: Order Comment: Speci men Type: BLOOD SPECIMEN [facility] Address: [address] [place] [address] Performed By: #### 5 7021-8 #### [facility] CLIA [id number] [address] [place] [address] [place] Lymphocytes (Bld) [#/Vol] 1.13 10*3/uL Normal 1.00-4.00 [facility] Comment on above: Order Comment: Speci men Type: BLOOD SPECIMEN [facility] Address: [address] [place] [address] Performed By: #### 5 7021-8 #### [facility] CLIA [id number] [address] [place] [address] [place] Lymphocytes/100 WBC (Bld) 18.2 % Normal [facility] Comment on above: Order Comment: Speci men Type: BLOOD SPECIMEN [facility] Address: [address] [place] [address] Performed By: #### 5 7021-8 #### [facility] CLIA [id number] [address] [place] [address] [place] MCH (RBC) [Entitic mass] 29.9 pg Normal 26.0-34.0 [facility] Comment on above: Order Comment: Speci men Type: BLOOD SPECIMEN [facility] Address: [address] [place] [address] Performed By: #### 5 7021-8 #### [facility] CLIA [id number] [address] [place] [address] [place] MCHC (RBC) [Mass/Vol] 34.3 g/dL Normal 30.5-36.0 [facility] Comment on above: Order Comment: Speci men Type: BLOOD SPECIMEN [facility] Address: [address] [place] [address] Performed By: #### 5 7021-8 #### [facility] CLIA [id number] [address] [place] [address] [place] MCV (RBC) [Entitic vol] 87.2 fL Normal 80.0-100.0 [facility] Comment on above: Order Comment: Speci men Type: BLOOD SPECIMEN [facility] Address: [address] [place] [address] Performed By: #### 5 7021-8 #### [facility] CLIA [id number] [address] [place] [address] [place] Monocytes (Bld) [#/Vol] 0.36 10*3/uL Normal <0.87 [facility] Comment on above: Order Comment: Speci men Type: BLOOD SPECIMEN [facility] Address: [address] [address] Performed By: #### 5 7021-8 #### [facility] CLIA [id number] [address] [place] [address] [place] Monocytes/100 WBC (Bld) 5.8 % Normal [facility] Comment on above: Order Comment: Speci men Type: BLOOD SPECIMEN [facility] Address: [address] [place] [address] Performed By: #### 5 7021-8 #### [facility] CLIA [id number] [address] [place] [address] [place] Neutrophils (Bld) [#/Vol] 4.18 10*3/uL Normal 1.45-7.50 [facility] Comment on above: Order Comment: Speci men Type: BLOOD SPECIMEN [facility] Address: [address] [place] [address] Performed By: #### 5 7021-8 #### [facility] CLIA [id number] [address] [place] [address] [place] Neutrophils/100 WBC (Bld) 67.3 % Normal [facility] Comment on above: Order Comment: Speci men Type: BLOOD SPECIMEN [facility] Address: [address] [place] [address] Performed By: #### 5 7021-8 #### [facility] CLIA [id number] [address] [place] [address] [place] Nucleated RBC (Bld) [#/Vol] 10*3/uL Normal <0.01 [facility] Comment on above: Order Comment: Speci men Type: BLOOD SPECIMEN [facility] Address: [address] [place] [address] Performed By: #### 5 7021-8 #### [facility] CLIA [id number] [address] [place] [address] [place] Nucleated RBC/100 WBC (Bld) [Ratio] 0.0 /100 WBC Normal [facility] Comment on above: Order Comment: Speci men Type: BLOOD SPECIMEN [facility] Address: [address] [place], [place] [address] Performed By: #### 5 7021-8 #### [facility] CLIA [id number] [address] [place] [address] [place] Platelet mean volume (Bld) [Entitic vol] 8.7 fL Low 9.0-12.7 [facility] Comment on above: Order Comment: Speci men Type: BLOOD SPECIMEN [facility] Address: [address] [place] [address] Performed By: #### 5 7021-8 #### [facility] CLIA [id number] [address] [place] [address] [place] Platelets (Bld) [#/Vol] 436 10*3/uL High 150-400 [facility] Comment on above: Order Comment: Speci men Type: BLOOD SPECIMEN [facility] Address: [address] [place] [address] Performed By: #### 5 7021-8 #### [facility] CLIA [id number] [address] [place] [address] [place] RBC (Bld) [#/Vol] 3.58 10*6/uL Low 3.90-5.20 [facility] Comment on above: Order Comment: Speci men Type: BLOOD SPECIMEN [facility] Address: [address] [place], [place] [address] Performed By: #### 5 7021-8 #### [facility] CLIA [id number] [address] [place] [address] [place] WBC (Bld) [#/Vol] 6.21 10*3/uL Normal 3.70-11.00 [facility] Comment on above: Order Comment: Speci men Type: BLOOD SPECIMEN [facility] Address: [address] [place] [address] Performed By: #### 5 7021-8 #### [facility] CLIA [id number] [address] [place] [address] [place] Magnesium SerPl-mCncon 04-04 Magnesium [Mass/Vol] 2.1 mg/dL Normal 1.7-2.3 [facility] Comment on above: Order Comment: Speci men Type: BLOOD SPECIMENOrdering Facility: [facility] Address: [address] [place], [place] [phone] Performed By: #### 2 4321-2, 46029-1, 2777-1 ####[facility] [id number] [address] NURSING PROGon 04-04-2022 NURSING PROG HNO ID: [id number] Author: Dipti Crowley RN Service: Nursing Author Type: Registered Nurse Type: Nursing Progress Note Filed: 04/04/2022 7:47 PM Note Text: Nursing Progress Note Patient Name: Mary Leal Patient Location: [id number] __ Daily Note:Patient refusing further IVF. This note was completed by: Dipti Langford [facility] NURSING PROG HNO ID: [id number] Author: Dipti Crowley RN Service: Nursing Author Type: Registered Nurse Type: Nursing Progress Note Filed: 04/04/2022 11:11 AM Note Text: Nursing Progress Note Patient Name: Mary Leal Patient Location: __ Daily Note: Patient up in chair and up ambulating in hallway with steady gait. VSS. RA POx. IVF as ordered. Transverse and Lap sites PRODUCT DELIVERY SPECIALIST with glue. Dressing to old ostomy site CDI. Abdomen soft and tender. Patient states, feeling much better . Diet advanced, yet patient did not take in 25% of tray. Patient informed RN that I am leaving today. Do what you gotta do. I can do all of this at home . Dr Lamas paged and notified, but post call. Will page SR printed circuit boards contact printer. Will continue to monitor. Call light in reach. This note was completed by: Dipti Crowley Normal [facility] Phosphate SerPl-mCncon 04-04 Phosphate [Mass/Vol] 3.2 mg/dL Normal 2.7-4.8 [facility] Comment on above: Order Comment: Speci men Type: BLOOD SPECIMENOrdering Facility: [facility] Address: [address] [place] [address] Performed By: #### 2 4321-2, 35963-2, 2777-1 ####[facility] [id number] [address] ALLIED HEALTH 04-03-2022 ALLIED HEALTH HNO ID: [id number] Author: MALAIKA Martinez Service: ? Author Type: Coater Operator Insulation Board Type: Allied Health Filed: 04/03/2022 5:35 PM [...] Martinez April 03, 2022 5:35 PM Normal [facility] Basic metabolic 2000 panelon 04-03-2022 Anion gap [Moles/Vol] 10 mmol/L Normal 9-18 [facility] Comment on above: Order Comment: Speci men Type: BLOOD SPECIMENOrdering Facility: [facility] Address: [address] [place] [address] Performed By: #### B MP #### [place] [phone] Calcium [Mass/Vol] 8.4 mg/dL Low 8.5-10.2 [facility] Comment on above: Order Comment: Speci men Type: BLOOD SPECIMENOrdering Facility: [facility] Address: [address] [place] [address] Performed By: #### B MP #### [id number] Chloride [Moles/Vol] 103 mmol/L Normal 97-105 [facility] Comment on above: Order Comment: Speci men Type: BLOOD SPECIMENOrdering Facility: [facility] Address: [address] [place] [address] Performed By: #### B MP #### [place] [phone] CO2 [Moles/Vol] 25 mmol/L Normal 22-30 [facility] Comment on above: Order Comment: Speci men Type: BLOOD SPECIMENOrdering Facility: [facility] Address: [address] [place] [address] Performed By: #### B MP #### [id number] Creatinine [Mass/Vol] 0.60 mg/dL Normal 0.58-0.96 [facility] Comment on above: Order Comment: Speci men Type: BLOOD SPECIMENOrdering Facility: [facility] Address: [address] [place] [address] Performed By: #### B MP #### [place] [phone] ESTIMATED GLOMERULAR FILTRATION RATE 110 mL/min/1.73m??? Normal >=60 [facility] Comment on above: Order Comment: Speci men Type: BLOOD SPECIMENOrdering Facility: [facility] Address: [address] [id number] Result Comment: Mary mated Glomerular Filtration Rate [...] GFR. Performed By: #### B MP #### [place] [address] Glucose [Mass/Vol] 106 mg/dL High 74-99 [facility] Comment on above: Order Comment: Leanne terry Type: BLOOD SPECIMENOrdering Facility: [facility] Address: [address] [place], [place] [phone] Result Comment: The [employer] Diabetes Association (ADA) provides guidance for cutoff [...] Standards of Medical Care in Diabetes 2016, [employer] Diabetes [employer]. Diabetes Care. 2016.39(Suppl 1). Performed By: #### B MP #### [place] [address] Potassium [Moles/Vol] 3.3 mmol/L Low 3.7-5.1 [facility] Comment on above: Order Comment: Leanne terry Type: BLOOD SPECIMENOrdering Facility: [facility] Address: [address] [phone] Performed By: #### B MP #### [place] [address] Sodium [Moles/Vol] 138 mmol/L Normal 136-144 [facility] Comment on above: Order Comment: Speci men Type: BLOOD SPECIMENOrdering Facility: [facility] Address: [address] [place] [address] Performed By: #### B MP #### [phone] Urea nitrogen [Mass/Vol] 4 mg/dL Low 7- [facility] Comment on above: Order Comment: Speci men Type: BLOOD SPECIMENOrdering Facility: [facility] Address: [address] [place] [address] Performed By: #### B MP #### [place] [phone] CBC W Auto Differential pane l (Bld)on 04-03-2022 Basophils (Bld) [#/Vol] 0.03 10*3/uL Normal <0.11 [facility] Comment on above: Order Comment: Speci men Type: BLOOD SPECIMENOrdering Facility: [facility] Address: [address] [place] [address] Performed By: #### B MP #### [place] [phone] Basophils/100 WBC (Bld) 0.4 % Normal [facility] Comment on above: Order Comment: Speci men Type: BLOOD SPECIMENOrdering Facility: [facility] Address: [address] [place] [address] Performed By: #### B MP #### [place] [phone] Differential cell count method Nom (Bld) Auto Normal [facility] Comment on above: Order Comment: Speci men Type: BLOOD SPECIMENOrdering Facility: [facility] Address: [address] [place] [address] Performed By: #### B MP #### [id number] Eosinophils (Bld) [#/Vol] 0.48 10*3/uL High <0.46 [facility] Comment on above: Order Comment: Speci men Type: BLOOD SPECIMENOrdering Facility: [facility] Address: [address] [place] [address] Performed By: #### B MP #### [place] [phone] Eosinophils/100 WBC (Bld) 6.5 % Normal [facility] Comment on above: Order Comment: Speci men Type: BLOOD SPECIMENOrdering Facility: [facility] Address: [address] [place] [address] Performed By: #### B MP #### [place] [phone] Erythrocyte distribution width (RBC) [Ratio] 12.5 % Normal 11.5-15.0 [facility] Comment on above: Order Comment: Speci men Type: BLOOD SPECIMENOrdering Facility: [facility] Address: [address] [place] [address] Performed By: #### B MP #### [place] [phone] Hematocrit (Bld) [Volume fraction] 29.5 % Low 36.0-46.0 [facility] Comment on above: Order Comment: Speci men Type: BLOOD SPECIMENOrdering Facility: [facility] Address: [address] [place] [address] Performed By: #### B MP #### [place] [phone] Hemoglobin (Bld) [Mass/Vol] 10.2 g/dL Low 11.5-15.5 [facility] Comment on above: Order Comment: Speci men Type: BLOOD SPECIMENOrdering Facility: [facility] Address: [address] [place] [address] Performed By: #### B MP #### [place] [phone] IMMATURE GRAN % 0.5 % Normal [facility] Comment on above: Order Comment: Speci men Type: BLOOD SPECIMENOrdering Facility: [facility] Address: [address] [place] [address] Performed By: #### B MP #### [place] [phone] IMMATURE GRAN ABS 0.04 k/uL Normal <0.10 [facility] Comment on above: Order Comment: Speci men Type: BLOOD SPECIMENOrdering Facility: [facility] Address: [address] [place] [address] Performed By: #### B MP #### [phone] Lymphocytes (Bld) [#/Vol] 1.11 10*3/uL Normal 1.00-4.00 [facility] Comment on above: Order Comment: Speci men Type: BLOOD SPECIMENOrdering Facility: [facility] Address: [address] [place] [address] Performed By: #### B MP #### [place] [phone] Lymphocytes/100 WBC (Bld) 15.0 % Normal [facility] Comment on above: Order Comment: Speci men Type: BLOOD SPECIMENOrdering Facility: [facility] Address: [address] [place] [address] Performed By: #### B MP #### [place] [phone] MCH (RBC) [Entitic mass] 30.1 pg Normal 26.0-34.0 [facility] Comment on above: Order Comment: Speci men Type: BLOOD SPECIMENOrdering Facility: [facility] Address: [address] [place] [address] Performed By: #### B MP #### [id number] MCHC (RBC) [Mass/Vol] 34.6 g/dL Normal 30.5-36.0 [facility] Comment on above: Order Comment: Speci men Type: BLOOD SPECIMENOrdering Facility: [facility] Address: [address] [place] [address] Performed By: #### B MP #### [place] [phone] MCV (RBC) [Entitic vol] 87.0 fL Normal 80.0-100.0 [facility] Comment on above: Order Comment: Speci men Type: BLOOD SPECIMENOrdering Facility: [facility] Address: [address] [place] [address] Performed By: #### B MP #### [phone] Monocytes (Bld) [#/Vol] 0.46 10*3/uL Normal <0.87 [facility] Comment on above: Order Comment: Speci men Type: BLOOD SPECIMENOrdering Facility: [facility] Address: [address] [place] [address] Performed By: #### B MP #### [place] [phone] Monocytes/100 WBC (Bld) 6.2 % Normal [facility] Comment on above: Order Comment: Speci men Type: BLOOD SPECIMENOrdering Facility: [facility] Address: [address] [place] [address] Performed By: #### B MP #### [place] [phone] Neutrophils (Bld) [#/Vol] 5.27 10*3/uL Normal 1.45-7.50 [facility] Comment on above: Order Comment: Speci men Type: BLOOD SPECIMENOrdering Facility: [facility] Address: [address] [place] [address] Performed By: #### B MP #### [place] [phone] Neutrophils/100 WBC (Bld) 71.4 % Normal [facility] Comment on above: Order Comment: Speci men Type: BLOOD SPECIMENOrdering Facility: [facility] Address: [address] [place] [address] Performed By: #### B MP #### [place] [phone] Nucleated RBC (Bld) [#/Vol] 10*3/uL Normal <0.01 [facility] Comment on above: Order Comment: Speci men Type: BLOOD SPECIMENOrdering Facility: [facility] Address: [address] [place] [address] Performed By: #### B MP #### [place] [phone] Nucleated RBC/100 WBC (Bld) [Ratio] 0.0 /100 WBC Normal [facility] Comment on above: Order Comment: Speci men Type: BLOOD SPECIMENOrdering Facility: [facility] Address: [address] [place] [address] Performed By: #### B MP #### [place] [phone] Platelet mean volume (Bld) [Entitic vol] 8.6 fL Low 9.0-12.7 [facility] Comment on above: Order Comment: Speci men Type: BLOOD SPECIMENOrdering Facility: [facility] Address: [address] [place] [address] Performed By: #### B MP #### [place] [phone] Platelets (Bld) [#/Vol] 342 10*3/uL Normal 150-400 [facility] Comment on above: Order Comment: Speci men Type: BLOOD SPECIMENOrdering Facility: [facility] Address: [address] [place] [address] Performed By: #### B MP #### [place] [phone] RBC (Bld) [#/Vol] 3.39 10*6/uL Low 3.90-5.20 [facility] Comment on above: Order Comment: Speci men Type: BLOOD SPECIMENOrdering Facility: [facility] Address: [address] [place] [address] Performed By: #### B MP #### [place] [phone] WBC (Bld) [#/Vol] 7.39 10*3/uL Normal 3.70-11.00 [facility] Comment on above: Order Comment: Speci men Type: BLOOD SPECIMENOrdering Facility: [facility] Address: [address] [place] [address] Performed By: #### B #### [facility] [address] [place] [address] CONSULT PROGon 04-03-2022 CONSULT PROG HNO ID: [id number] Author: Sarwat Huddleston PA-C Service: Pain Management Author Type: Physician Veterinarian Poultry Type: Consult Progress Note Filed: 04/03/2022 8:39 [...] appears comf (more content not included)... Normal [facility] CT ABD/PEL W IVCONon 022 CT ABD/PEL [...] Lower thorax: Visualized lung bases are clear. Cognos Analyst (topogram) images: No additional findings. IMPRESSION: Postsurgical [...] collection is present in the lower pelvis Thermoscrew Operator: CAPRI Transcribe Date/Time: Apr 03 2022 9:00P Dictated by : SHELBY ESPINOSA MD This examination was interpreted and the report reviewed and electronically signed by: SHELBY ESPINOSA MD on Apr 03 2022 9:12PM EST [id number] Normal [facility] Magnesium SerPl-mCncon 04-03 Magnesium [Mass/Vol] 1.6 mg/dL Low 1.7-2.3 [facility] Comment on above: Order Comment: Speci men Type: BLOOD SPECIMENOrdering Facility: [facility] Address: [address] [place] [address] Performed By: #### B MP #### [place] [id number] NURSING PROGon 04-03-2022 NURSING PROG HNO ID: [id number] Author: Beto Ford RN Service: ? Author Type: Registered Nurse Type: Nursing Progress Note Filed: 04/03/2022 9:39 PM Note Text: Nursing Progress Note Patient Name: Mary Leal Patient Location: / __ Daily Note: 2129: Pt declined to have all oral medications. They just go right through me. I cannot take them. . Made RN aware. This note was completed by: Beto Ford [facility] NURSING PROG HNO ID: [id number] Author: Dipti Crowley RN Service: Nursing Author Type: Registered Nurse Type: Nursing Progress Note Filed: 04/03/2022 2:51 PM Note Text: Nursing Progress Note Patient Name: Mary Leal Patient Location: / __ Daily Note:Patient unable to tolerate powder form of potassium due to nausea. Patient unable to tolerate IV form, it feels like It's paralyzing my arm . Attempted to dilute boluses and lower rates with no success. SR paged with events [phone]). Awaiting further orders. This note was completed by: Dipti Crowley [facility] NURSING PROG HNO ID: [id number] Author: Dipti Crowley RN Service: Nursing Author Type: Registered Nurse Type: Nursing Progress Note Filed: 04/03/2022 11:33 AM Note Text: Nursing Progress Note Patient Name: Mary Leal Patient Location: -PK3B __ Daily Note: Patient Up independently in [...] This note was completed by: Dipti Crowley [facility] NURSING PROG HNO ID: [id number] Author: Chava Remy RN Service: PICC Team [...] 03, 2022 TIME: 8:37 AM PAGER/CONTACT #: [facility] NURSING PROG HNO ID: [id number] Author: Kev Leone RN Service: ? Author Type: Registered Nurse Type: Nursing Progress Note Filed: 04/03/2022 3:50 AM Note Text: Nursing Progress Note Patient Name: Mary Leal Patient Location: __ Daily Note: 2100: Pt refusing all PO meds at this time, states she's concerned that she's not digesting them properly. Paan currently being controlled with bilateral blocks and PRN IV pain medication. This note was completed by: Kev Leone [facility] Phosphate SerPl-mCncon 04-03 Phosphate [Mass/Vol] 3.3 mg/dL Normal 2.7-4.8 [facility] Comment on above: Order Comment: Speci men Type: BLOOD SPECIMENOrdering Facility: [facility] Address: [address] [place], [place] [phone] Performed By: #### B MP #### [place] [address] ALLIED HEALTHon 04-02-2022 ALLIED HEALTH HNO ID: [id number] Author: RT Ban(Asiya) Service: Radiology Author Type: [...] IV DATA: Not applicable SIGNED BY: RT Ban(Asiya) April 02, 2022 9:12 AM [facility] CONSULT PROGon 04-02-2022 CONSULT PROG HNO ID: [id number] Author: Sarwat Huddleston PA-C Service: Pain Management Author Type: Physician Veterinarian Poultry Type: Consult Progress Note Filed: 04/02/2022 9:00 [...] 29.3 5 (more content not included)... Normal [facility] NURSING PROGon 04-02-2022 NURSING PROG HNO ID: [id number] Author: Dipti Crowley RN Service: Nursing Author Type: Registered Nurse Type: Nursing Progress Note Filed: 04/02/2022 1:23 PM Note Text: Nursing Progress Note Patient Name: Mary Leal Patient Location: [place] [address]/[id number] __ Daily Note: Patient AANDOx3. VSS. RA POx. D51/2NS at 75 ml/hr. B/L Tap Block dressings CDI. Old ostomy with ABD and tape, CDI. 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 NPO status. Medicated with IV [...] note was completed by: Dipti Crowley Normal [facility] XR ABDOMEN 1V SUPINEon 04-02 XR ABDOMEN [...] may be of help for further evaluation. Thermoscrew Operator: PSCB Transcribe Date/Time: Apr 02 2022 9:16A Dictated by : JOAQUIN BRYANT MD This examination was interpreted and the report reviewed and electronically signed by: JOAQUIN BRYANT MD on Apr 02 2022 9:19AM EST [id number] Normal [facility] Basic metabolic 2000 panelon 04-01-2022 Anion gap [Moles/Vol] 9 mmol/L Normal 9-18 [facility] Comment on above: Order Comment: Speci men Type: BLOOD SPECIMENOrdering Facility: [facility] Address: [address] [place] [address] Performed By: #### B MP #### [facility] [address] [place] [address] Calcium [Mass/Vol] 7.9 mg/dL Low 8.5-10.2 [facility] Comment on above: Order Comment: Speci men Type: BLOOD SPECIMENOrdering Facility: [facility] Address: [address] [phone] Performed By: #### B MP #### [place] [phone] Chloride [Moles/Vol] 106 mmol/L High 97-105 [facility] Comment on above: Order Comment: Speci men Type: BLOOD SPECIMENOrdering Facility: [facility] Address: [address] [place] [address] Performed By: #### B MP #### [place] [phone] CO2 [Moles/Vol] 26 mmol/L Normal 22-30 [facility] Comment on above: Order Comment: Speci men Type: BLOOD SPECIMENOrdering Facility: [facility] Address: [address] [place] [address] Performed By: #### B MP #### [place] [phone] Creatinine [Mass/Vol] 0.68 mg/dL Normal 0.58-0.96 [facility] Comment on above: Order Comment: Speci men Type: BLOOD SPECIMENOrdering Facility: [facility] Address: [address] [place] [address] Performed By: #### B MP #### [place] [phone] ESTIMATED GLOMERULAR FILTRATION RATE 107 mL/min/1.73m??? Normal >=60 [facility] Comment on above: Order Comment: Speci men Type: BLOOD SPECIMENOrdering Facility: [facility] Address: [address] [place] [address] Result Comment: Mary mated Glomerular Filtration Rate [...] GFR. Performed By: #### B MP #### [id number] Glucose [Mass/Vol] 99 mg/dL Normal 74-99 [facility] Comment on above: Order Comment: Speci men Type: BLOOD SPECIMENOrdering Facility: [facility] Address: [address] [place], [place] [phone] Result Comment: The [employer] Diabetes Association (ADA) provides guidance for cutoff [...] Standards of Medical Care in Diabetes 2016, [employer] Diabetes [employer]. Diabetes Care. 2016.39(Suppl 1). Performed By: #### B MP #### [place] [phone] Potassium [Moles/Vol] 3.7 mmol/L Normal 3.7-5.1 [facility] Comment on above: Order Comment: Leanne harrison Type: BLOOD SPECIMENOrdering Facility: [facility] Address: [address] [place] [address] Performed By: #### B MP #### [place] [phone] Sodium [Moles/Vol] 141 mmol/L Normal 136-144 [facility] Comment on above: Order Comment: Speci men Type: BLOOD SPECIMENOrdering Facility: [facility] Address: [address] [place], [place] [phone] Performed By: #### B MP #### [place] [phone] Urea nitrogen [Mass/Vol] 4 mg/dL Low 7-21 [facility] Comment on above: Order Comment: Speci men Type: BLOOD SPECIMENOrdering Facility: [facility] Address: [address] [place], [place] [address] Performed By: #### B #### [place] [address] CBC panel Auto (Bld)on 04-01 Erythrocyte distribution width (RBC) [Ratio] 12.4 % Normal 11.5-15.0 [facility] Comment on above: Order Comment: Speci men Type: BLOOD SPECIMEN [facility] Address: [address] [place] [address] Performed By: #### 5 8410-2 #### [facility] CLIA [id number] [address] [place] [address] [place] Hematocrit (Bld) [Volume fraction] 29.3 % Low 36.0-46.0 [facility] Comment on above: Order Comment: Speci men Type: BLOOD SPECIMEN [facility] Address: [address] [place] [address] Performed By: #### 5 8410-2 #### [facility] CLIA [id number] [address] [place] [address] [place] Hemoglobin (Bld) [Mass/Vol] 9.6 g/dL Low 11.5-15.5 [facility] Comment on above: Order Comment: Speci men Type: BLOOD SPECIMEN [facility] Address: [address] [place] [address] Performed By: #### 5 8410-2 #### [facility] CLIA [id number] [address] [place] [address] [place] MCH (RBC) [Entitic mass] 29.4 pg Normal 26.0-34.0 [facility] Comment on above: Order Comment: Speci men Type: BLOOD SPECIMEN [facility] Address: [address] [place] [address] Performed By: #### 5 8410-2 #### [facility] CLIA [id number] [address] [place] [address] [place] MCHC (RBC) [Mass/Vol] 32.8 g/dL Normal 30.5-36.0 [facility] Comment on above: Order Comment: Speci men Type: BLOOD SPECIMEN [facility] Address: [address] [place] [address] Performed By: #### 5 8410-2 #### [facility] CLIA [id number] [address] [place] [address] [place] MCV (RBC) [Entitic vol] 89.9 fL Normal 80.0-100.0 [facility] Comment on above: Order Comment: Speci men Type: BLOOD SPECIMEN [facility] Address: [address] [place] [address] Performed By: #### 5 8410-2 #### [facility] CLIA [id number] [address] [place] [address] [place] Nucleated RBC (Bld) [#/Vol] 10*3/uL Normal <0.01 [facility] Comment on above: Order Comment: Speci men Type: BLOOD SPECIMEN [facility] Address: [address] [place] [address] Performed By: #### 5 8410-2 #### [facility] CLIA [id number] [address] [place] [address] [place] Platelet mean volume (Bld) [Entitic vol] 8.9 fL Low 9.0-12.7 [facility] Comment on above: Order Comment: Speci men Type: BLOOD SPECIMEN [facility] Address: [address] [place] [address] Performed By: #### 5 8410-2 #### [facility] CLIA [id number] [address] [place] [address] [place] Platelets (Bld) [#/Vol] 282 10*3/uL Normal 150-400 [facility] Comment on above: Order Comment: Speci men Type: BLOOD SPECIMEN [facility] Address: [address] [place] [address] Performed By: #### 5 8410-2 #### [facility] CLIA [id number] [address] [place], [place] [address] [facility] [place] RBC (Bld) [#/Vol] 3.26 10*6/uL Low 3.90-5.20 [facility] Comment on above: Order Comment: Speci men Type: BLOOD SPECIMEN [facility] Address: [address] [place] [address] Performed By: #### 5 8410-2 #### [facility] CLIA [id number] [address] [place] [address] WBC (Bld) [#/Vol] 7.39 10*3/uL Normal 3.70-11.00 [facility] Comment on above: Order Comment: Speci men Type: BLOOD SPECIMEN [facility] Address: [address] [place] [address] Performed By: #### 5 8410-2 #### [facility] CLIA [id number] [address] [place] [address] CONSULT PROGon 04-01-2022 CONSULT PROG HNO ID: [id number] Author: Joslyn Jain APRN.LOCKER ROOM SUPERVISOR Service: Pain Management Author Type: Nurse Practitioner [...] 0.67 Sod (more content not included)... Normal [facility] Magnesium SerPl-mCncon 04-01 Magnesium [Mass/Vol] 1.7 mg/dL Normal 1.7-2.3 [facility] Comment on above: Order Comment: Speci men Type: BLOOD SPECIMENOrdering Facility: [facility] Address: [address] [place], [place] [phone] Performed By: #### B MP #### [facility] [address] [place] [address] NURSING PROGon 04-01-2022 NURSING PROG HNO ID: [id number] Author: Tez Gu RN Service: ? Author Type: Registered Nurse Type: Nursing Progress Note Filed: 04/01/2022 9:56 PM Note Text: Nursing Progress Note Patient Name: Mary Leal Patient Location: [id number] __ Daily Note:04/01/222038 Pt is alert and oriented x3. Surgical sites intact. Tap blocks x2 intact. Made SROC aware of Pt experiencing sharp/stabbing pain in abdomen, rating 9/10. SROC recommended use of PRN Dilaudid This note was completed by: Tez Gu [facility] NURSING PROG HNO ID: [id number] Author: Tez Gu RN Service: ? Author Type: Registered Nurse Type: Nursing Progress Note Filed: 04/01/2022 1:52 AM Note Text: Nursing Progress Note Patient Name: Mary Leal [id number] __ Daily Note:03/31/222030 Pt is alert and oriented x3. Surgical sites intact. Nerve blocks x2 intact. This note was completed by: Tez Langford [facility] Phosphate SerPl-mCncon 04-01 Phosphate [Mass/Vol] 2.8 mg/dL Normal 2.7-4.8 [facility] Comment on above: Order Comment: Speci men Type: BLOOD SPECIMENOrdering Facility: [facility] Address: [address] [place] [address] Performed By: #### B MP #### [place] [address] Basic metabolic 2000 panelon 03-31-2022 Anion gap [Moles/Vol] 10 mmol/L Normal 9-18 [facility] Comment on above: Order Comment: Speci men Type: BLOOD SPECIMEN [facility] Address: [address] [place] [address] Performed By: #### 5 8410-2 #### [facility] CLIA [id number] [address] [place] [address] [place] Calcium [Mass/Vol] 8.4 mg/dL Low 8.5-10.2 [facility] Comment on above: Order Comment: Speci men Type: BLOOD SPECIMEN Ordering Facility: [facility] Address: [address] [place] [address] Performed By: #### 5 8410-2 #### [facility] CLIA [id number] [address] [place] [address] [place] Chloride [Moles/Vol] 107 mmol/L High 97-105 [facility] Comment on above: Order Comment: Speci men Type: BLOOD SPECIMEN Ordering Facility: [facility] Address: [address] [place] [address] Performed By: #### 5 8410-2 #### [facility] CLIA [id number] [address] [place] [address] [place] CO2 [Moles/Vol] 23 mmol/L Normal 22-30 [facility] Comment on above: Order Comment: Leanne terry Type: BLOOD SPECIMEN Ordering Facility: [facility] Address: [address] [address] Performed By: #### 5 8410-2 #### [facility] CLIA [id number] [place] Creatinine [Mass/Vol] 0.67 mg/dL Normal 0.58-0.96 [facility] Comment on above: Order Comment: Leanne terry Type: BLOOD SPECIMEN Ordering Facility: [facility] Address: [address] [place] [address] Performed By: #### 5 8410-2 #### [facility] CLIA [id number] OF [facility] ESTIMATED GLOMERULAR FILTRATION RATE 107 mL/min/1.73m??? Normal >=60 [facility] Comment on above: Order Comment: Leanne harrison Type: BLOOD SPECIMEN Ordering Facility: [facility] Address: [address] [place] [address] Result Comment: Mary mated Glomerular Filtration Rate [...] GFR. Performed By: #### 5 8410-2 #### [facility] CLIA [id number] [address] [place] Glucose [Mass/Vol] 84 mg/dL Normal 74-99 [facility] Comment on above: Order Comment: Leanne harrison Type: BLOOD SPECIMEN Ordering Facility: [facility] Address: [address] [address] Result Comment: The [employer] Diabetes Association (ADA) provides guidance for cutoff [...] Standards of Medical Care in Diabetes 2016, [employer]. Diabetes Care. 2016.39(Suppl 1). Performed By: #### 5 8410-2 #### [facility] CLIA [id number] [address] [place] [address] [place] Potassium [Moles/Vol] 3.8 mmol/L Normal 3.7-5.1 [facility] Comment on above: Order Comment: Speci men Type: BLOOD SPECIMEN Ordering Facility: [facility] Address: [address] [place] [address] Performed By: #### 5 8410-2 #### [facility] CLIA [id number] [address] [place] [address] [place] Sodium [Moles/Vol] 140 mmol/L Normal 136-144 [facility] Comment on above: Order Comment: Everettei harrison Type: BLOOD SPECIMEN Ordering Facility: [facility] Address: [address] [place] [address] Performed By: #### 5 8410-2 #### [facility] CLIA [id number] [address] [place] [address] [place] Urea nitrogen [Mass/Vol] 11 mg/dL Normal 7-21 [facility] Comment on above: Order Comment: Everettei men Type: BLOOD SPECIMEN Ordering Facility: [facility] Address: [address] [place] [address] Performed By: #### 5 8410-2 #### [facility] CLIA [id number] [address] [place] [address] [place] CBC W Auto Differential pane l (Bld)on 03-31-2022 Basophils (Bld) [#/Vol] 0.03 10*3/uL Normal <0.11 [facility] Comment on above: Order Comment: Speci men Type: BLOOD SPECIMEN Ordering Facility: [facility] Address: [address] [place] [address] Performed By: #### 5 7021-8 #### [facility] CLIA [id number] [address] [place] [address] [place] Basophils/100 WBC (Bld) 0.4 % Normal [facility] Comment on above: Order Comment: Speci men Type: BLOOD SPECIMEN Ordering Facility: [facility] Address: [address] [place] [address] Performed By: #### 5 7021-8 #### [facility] CLIA [id number] [address] [place] [address] [place] Differential cell count method Nom (Bld) Auto Normal [facility] Comment on above: Order Comment: Speci men Type: BLOOD SPECIMEN Ordering Facility: [facility] Address: [address] [place] [address] Performed By: #### 5 7021-8 #### [facility] CLIA [id number] [address] [place] [address] [place] Eosinophils (Bld) [#/Vol] 0.38 10*3/uL Normal <0.46 [facility] Comment on above: Order Comment: Speci men Type: BLOOD SPECIMEN Ordering Facility: [facility] Address: [address] [place] [address] Performed By: #### 5 7021-8 #### [facility] CLIA [id number] [address] [place] [address] [place] Eosinophils/100 WBC (Bld) 4.4 % Normal [facility] Comment on above: Order Comment: Speci men Type: BLOOD SPECIMEN Ordering Facility: [facility] Address: [address] [place] [address] Performed By: #### 5 7021-8 #### [facility] CLIA [id number] [address] [place] [address] [place] Erythrocyte distribution width (RBC) [Ratio] 12.6 % Normal 11.5-15.0 [facility] Comment on above: Order Comment: Speci men Type: BLOOD SPECIMEN Ordering Facility: [facility] Address: [address] [place] [address] Performed By: #### 5 7021-8 #### [facility] CLIA [id number] [address] [place] [address] Hematocrit (Bld) [Volume fraction] 30.0 % Low 36.0-46.0 [facility] Comment on above: Order Comment: Speci men Type: BLOOD SPECIMEN Ordering Facility: [facility] Address: [address] [place] [address] Performed By: #### 5 7021-8 #### [facility] CLIA [id number] [address] [place] [address] Hemoglobin (Bld) [Mass/Vol] 9.9 g/dL Low 11.5-15.5 [facility] Comment on above: Order Comment: Speci men Type: BLOOD SPECIMEN Ordering Facility: [facility] Address: [address] [place] [address] Performed By: #### 5 7021-8 #### [facility] CLIA [id number] [address] [place] [address] IMMATURE GRAN % 0.4 % Normal [facility] Comment on above: Order Comment: Speci men Type: BLOOD SPECIMEN Ordering Facility: [facility] Address: [address] [place] [address] Performed By: #### 5 7021-8 #### [facility] CLIA [id number] [address] [place] [address] IMMATURE GRAN ABS 0.03 k/uL Normal <0.10 [facility] Comment on above: Order Comment: Speci men Type: BLOOD SPECIMEN Ordering Facility: [facility] Address: [address] [place] [address] Performed By: #### 5 7021-8 #### [facility] CLIA [id number] [address] [place] [address] Lymphocytes (Bld) [#/Vol] 1.24 10*3/uL Normal 1.00-4.00 [facility] Comment on above: Order Comment: Speci men Type: BLOOD SPECIMEN Ordering Facility: [facility] Address: [address] [place] [address] Performed By: #### 5 7021-8 #### [facility] CLIA [id number] [address] [place] [address] [place] Lymphocytes/100 WBC (Bld) 14.5 % Normal [facility] Comment on above: Order Comment: Speci men Type: BLOOD SPECIMEN Ordering Facility: [facility] Address: [address] [place] [address] Performed By: #### 5 7021-8 #### [facility] CLIA [id number] [address] [place] [address] [place] MCH (RBC) [Entitic mass] 29.6 pg Normal 26.0-34.0 [facility] Comment on above: Order Comment: Speci men Type: BLOOD SPECIMEN Ordering Facility: [facility] Address: [address] [place] [address] Performed By: #### 5 7021-8 #### [facility] CLIA [id number] [address] [place] [address] [place] MCHC (RBC) [Mass/Vol] 33.0 g/dL Normal 30.5-36.0 [facility] Comment on above: Order Comment: Speci men Type: BLOOD SPECIMEN Ordering Facility: [facility] Address: [address] [place] [address] Performed By: #### 5 7021-8 #### [facility] CLIA [id number] [address] [place] [address] [place] MCV (RBC) [Entitic vol] 89.8 fL Normal 80.0-100.0 [facility] Comment on above: Order Comment: Speci men Type: BLOOD SPECIMEN Ordering Facility: [facility] Address: [address] [place] [address] Performed By: #### 5 7021-8 #### [facility] CLIA [id number] [address] [place] [address] [place] Monocytes (Bld) [#/Vol] 0.48 10*3/uL Normal <0.87 [facility] Comment on above: Order Comment: Speci men Type: BLOOD SPECIMEN Ordering Facility: [facility] Address: [address] [place] [address] Performed By: #### 5 7021-8 #### [facility] CLIA [id number] [address] [place] [address] [place] Monocytes/100 WBC (Bld) 5.6 % Normal [facility] Comment on above: Order Comment: Speci men Type: BLOOD SPECIMEN Ordering Facility: [facility] Address: [address] [place] [address] Performed By: #### 5 7021-8 #### [facility] CLIA [id number] [address] [place] [address] [place] Neutrophils (Bld) [#/Vol] 6.41 10*3/uL Normal 1.45-7.50 [facility] Comment on above: Order Comment: Speci men Type: BLOOD SPECIMEN Ordering Facility: [facility] Address: [address] [place] [address] Performed By: #### 5 7021-8 #### [facility] CLIA [id number] [address] [place] [address] [place] Neutrophils/100 WBC (Bld) 74.7 % Normal [facility] Comment on above: Order Comment: Speci men Type: BLOOD SPECIMEN Ordering Facility: [facility] Address: [address] [place] [address] Performed By: #### 5 7021-8 #### [facility] CLIA [id number] [address] [place] [address] [place] Nucleated RBC (Bld) [#/Vol] 10*3/uL Normal <0.01 [facility] Comment on above: Order Comment: Speci men Type: BLOOD SPECIMEN Ordering Facility: [facility] Address: [address] [place] [address] Performed By: #### 5 7021-8 #### [facility] CLIA [id number] [address] [place] [address] [place] Nucleated RBC/100 WBC (Bld) [Ratio] 0.0 /100 WBC Normal [facility] Comment on above: Order Comment: Speci men Type: BLOOD SPECIMEN Ordering Facility: [facility] Address: [address] [place] [address] Performed By: #### 5 7021-8 #### [facility] CLIA [id number] [address] [place] [address] [place] Platelet mean volume (Bld) [Entitic vol] 9.0 fL Normal 9.0-12.7 [facility] Comment on above: Order Comment: Speci men Type: BLOOD SPECIMEN Ordering Facility: [facility] Address: [address] [place] [address] Performed By: #### 5 7021-8 #### [facility] CLIA [id number] [address] [place] [address] [place] Platelets (Bld) [#/Vol] 246 10*3/uL Normal 150-400 [facility] Comment on above: Order Comment: Speci men Type: BLOOD SPECIMEN Ordering Facility: [facility] Address: [address] [place] [address] Performed By: #### 5 7021-8 #### [facility] CLIA [id number] [address] [place] [address] [place] RBC (Bld) [#/Vol] 3.34 10*6/uL Low 3.90-5.20 [facility] Comment on above: Order Comment: Speci men Type: BLOOD SPECIMEN Ordering Facility: [facility] Address: [address] [place] [address] Performed By: #### 5 7021-8 #### [facility] CLIA [id number] [address] [place] [address] [place] WBC (Bld) [#/Vol] 8.57 10*3/uL Normal 3.70-11.00 [facility] Comment on above: Order Comment: Speci men Type: BLOOD SPECIMEN Ordering Facility: [facility] Address: [address] [place] [address] Performed By: #### 5 7021-8 #### [facility] IA [id number] [address] [place] [address] [place] CONSULT PROGon 03-31-2022 CONSULT PROG HNO ID: [id number] Author: Joslyn Jain APRN.KWESI Service: Pain Management [...] AND U (more content not included)... Normal [facility] Magnesium SerPl-mCncon 03-31 Magnesium [Mass/Vol] 1.6 mg/dL Low 1.7-2.3 [facility] Comment on above: Order Comment: Speci men Type: BLOOD SPECIMEN Ordering Facility: [facility] Address: [address] [place] [address] Performed By: #### 5 8410-2 #### [facility] CLIA [id number] [address] OF [facility] NURSING PROGon 03-31-2022 NURSING PROG HNO ID: [id number] Author: Daisy Amaya RN Service: Nursing Author [...] This note was completed by: Daisy Amaya [facility] NURSING PROG HNO ID: [id number] Author: Mariluz Carnes RN Service: Nursing Author Type: Registered Nurse Type: Nursing Progress Note Filed: 03/30/2022 11:47 PM Note Text: Nursing Progress Note Patient Name: Mary Leal Patient Location: / __ Daily Note: Pt's BP 90/52. Patient asymptomatic. Surgery made aware. Order in for [facility] LR 500CC's. This note was completed by: Mariluz Carnes [facility] Phosphate SerPl-mCncon 03-31 Phosphate [Mass/Vol] 2.7 mg/dL Normal 2.7-4.8 [facility] Comment on above: Order Comment: Speci men Type: BLOOD SPECIMEN Ordering Facility: [facility] Address: [address] [place], [place] [address] Performed By: #### 5 8410-2 #### [facility] CLIA [id number] [address] [place] [address] [place] Basic metabolic 2000 panelon 03-30-2022 Anion gap [Moles/Vol] 10 mmol/L Normal 9-18 [facility] Comment on above: Order Comment: Speci men Type: BLOOD SPECIMEN Ordering Facility: [facility] Address: [address] [place] [address] Performed By: #### 1 9123-9, 27771, 05685-1 #### [facility] CLIA [id number] [address] [place] [address] [place] Calcium [Mass/Vol] 8.5 mg/dL Normal 8.5-10.2 [facility] Comment on above: Order Comment: Speci men Type: BLOOD SPECIMEN Ordering Facility: [facility] Address: [address] [place] [address] Performed By: #### 1 9123-9, 2777-1, 78095-5 #### [facility] CLIA [id number] [address] [place] [address] [place] Chloride [Moles/Vol] 103 mmol/L Normal 97-105 [facility] Comment on above: Order Comment: Speci men Type: BLOOD SPECIMEN Ordering Facility: [facility] Address: [address] [place], [place] [address] Performed By: #### 1 9123-9, 277-1, 03447-9 #### [facility] CLIA [id number] [address] [place] [address] [place] CO2 [Moles/Vol] 24 mmol/L Normal 22-30 [facility] Comment on above: Order Comment: Speci men Type: BLOOD SPECIMEN Ordering Facility: [facility] Address: [address] [place], [place] [address] Performed By: #### 1 9123-9, 2777-1, 56358-6 #### [facility] CLIA [id number] [address] [place] [address] [place] Creatinine [Mass/Vol] 0.69 mg/dL Normal 0.58-0.96 [facility] Comment on above: Order Comment: Leanne terry Type: BLOOD SPECIMEN Ordering Facility: [facility] Address: [address] [place] [address] Performed By: #### 1 9123-9, 2777-1, 84019-6 #### [facility] CLIA [id number] [address] [place] [address] [place] ESTIMATED GLOMERULAR FILTRATION RATE 107 mL/min/1.73m??? Normal >=60 [facility] Comment on above: [facility] Type: BLOOD SPECIMEN Ordering Facility: [facility] Address: [address] [place] [address] Result Comment: Mary mated Glomerular Filtration Rate [...] GFR. Performed By: #### 1 9123-9, 2777-1, 41139-5 #### [facility] CLIA [id number] [address] [place] [address] [place] Glucose [Mass/Vol] 117 mg/dL High 74-99 [facility] Comment on above: Order Comment: Leanne terry Type: BLOOD SPECIMEN Ordering Facility: [facility] Address: [address] [place] [address] Result Comment: The [employer] Diabetes Association (ADA) provides guidance for cutoff [...] Standards of Medical Care in Diabetes 2016, [employer]. Diabetes Care. 2016.39(Suppl 1). Performed By: #### 1 9123-9, 2777-1, 97753-4 #### [facility] CLIA [id number] [place] [address] [place] Potassium [Moles/Vol] 3.9 mmol/L Normal 3.7-5.1 [facility] Comment on above: Order Comment: Speci men Type: BLOOD SPECIMEN Ordering Facility: [facility] Address: [address] [place] [address] Performed By: #### 1 9123-9, 2777-, 23195-7 #### [facility] CLIA [id number] [address] [place] [address] [place] Sodium [Moles/Vol] 137 mmol/L Normal 136-144 [facility] Comment on above: Order Comment: Speci men Type: BLOOD SPECIMEN Ordering Facility: [facility] Address: [address] [place] [address] Performed By: #### 1 9123-9, 27705-06, 41029-9 #### [facility] CLIA [id number] [address] [place] [address] [place] Urea nitrogen [Mass/Vol] 13 mg/dL Normal 7-21 [facility] Comment on above: Order Comment: Speci men Type: BLOOD SPECIMEN Ordering Facility: [facility] Address: [address] [place] [address] Performed By: #### 1 9123-9, 27705-06, 87500-7 #### [facility] CLIA [id number] [place] [address] [place] CBC panel Auto (Bld)on 03-30 Erythrocyte distribution width (RBC) [Ratio] 12.8 % Normal 11.5-15.0 [facility] Comment on above: Order Comment: Speci men Type: BLOOD SPECIMEN Ordering Facility: [facility] Address: [address] [place] [address] Performed By: #### 5 8410-2 #### [facility] CLIA [id number] [address] [place] [address] Hematocrit (Bld) [Volume fraction] 35.0 % Low 36.0-46.0 [facility] Comment on above: Order Comment: Speci men Type: BLOOD SPECIMEN Ordering Facility: [facility] Address: [address] [place] [address] Performed By: #### 5 8410-2 #### [facility] CLIA [id number] [address] [place] [address] [place] Hemoglobin (Bld) [Mass/Vol] 11.8 g/dL Normal 11.5-15.5 [facility] Comment on above: Order Comment: Speci men Type: BLOOD SPECIMEN Ordering Facility: [facility] Address: [address] [place] [address] Performed By: #### 5 8410-2 #### [facility] CLIA [id number] [address] [place] [address] MCH (RBC) [Entitic mass] 30.6 pg Normal 26.0-34.0 [facility] Comment on above: Order Comment: Speci men Type: BLOOD SPECIMEN Ordering Facility: [facility] Address: [address] [place] [address] Performed By: #### 5 8410-2 #### [facility] CLIA [id number] [address] [place] [address] [place] MCHC (RBC) [Mass/Vol] 33.7 g/dL Normal 30.5-36.0 [facility] Comment on above: Order Comment: Speci men Type: BLOOD SPECIMEN Ordering Facility: [facility] Address: [address] [place] [address] Performed By: #### 5 8410-2 #### [facility] CLIA [id number] [address] [place] [address] [place] MCV (RBC) [Entitic vol] 90.7 fL Normal 80.0-100.0 [facility] Comment on above: Order Comment: Speci men Type: BLOOD SPECIMEN Ordering Facility: [facility] Address: [address] [place] [address] Performed By: #### 5 8410-2 #### [facility] CLIA [id number] [address] [place] [address] [place] Nucleated RBC (Bld) [#/Vol] 10*3/uL Normal <0.01 [facility] Comment on above: Order Comment: Speci men Type: BLOOD SPECIMEN Ordering Facility: [facility] Address: [address] [place] [address] Performed By: #### 5 8410-2 #### [facility] CLIA [id number] [address] [place] [address] [place] Platelet mean volume (Bld) [Entitic vol] 8.9 fL Low 9.0-12.7 [facility] Comment on above: Order Comment: Speci men Type: BLOOD SPECIMEN Ordering Facility: [facility] Address: [address] [place] [address] Performed By: #### 5 8410-2 #### [facility] CLIA [id number] [address] [place] [address] [place] Platelets (Bld) [#/Vol] 293 10*3/uL Normal 150-400 [facility] Comment on above: Order Comment: Speci men Type: BLOOD SPECIMEN Ordering Facility: [facility] Address: [address] [place], [place] [id number] Performed By: #### 5 8410-2 #### [facility] CLIA [id number] [address] [place] [address] [place] RBC (Bld) [#/Vol] 3.86 10*6/uL Low 3.90-5.20 [facility] Comment on above: Order Comment: Speci men Type: BLOOD SPECIMEN Ordering Facility: [facility] Address: [address] [place], [place] [address] Performed By: #### 5 8410-2 #### [facility] CLIA [id number] [address] [place] [address] [place] WBC (Bld) [#/Vol] 11.25 10*3/uL High 3.70-11.00 [facility] Comment on above: Order Comment: Speci men Type: BLOOD SPECIMEN Ordering Facility: [facility] Address: [facility] [place] [address] Performed By: #### 5 8410-2 #### [facility] CLIA [id number] [address] [place] [id number] [facility] CONSULT PROGon 03-30-2022 CONSULT PROG HNO ID: [id number] Author: Joslyn Jain APRN.LOCKER ROOM SUPERVISOR Service: Pain Management Author Type: Nurse Practitioner [...] eGFR >= (more content not included)... Normal [facility] Magnesium SerPl-mCncon 03-30 Magnesium [Mass/Vol] 1.6 mg/dL Low 1.7-2.3 [facility] Comment on above: Order Comment: Speci men Type: BLOOD SPECIMEN Ordering Facility: [facility] Address: [address] [place] [address] [place] [id number] Performed By: #### 1 9123-9, 2777-1, 43650-9 #### [facility] CLIA [id number] [address] [place] [address] [place] [facility] [place] Phosphate SerPl-mCncon 03-30 Phosphate [Mass/Vol] 2.9 mg/dL Normal 2.7-4.8 [facility] Comment on above: Order Comment: Speci men Type: BLOOD SPECIMEN Ordering Facility: [facility] Address: [address] [place], [place] [address] [address] Performed By: #### 1 9123-9, 2777-1, 58110-3 #### [facility] CLIA [id number] [place] [address] [facility] ANES POSTPROC EVALon 022 ANES POSTPROC EVAL HNO ID: [id number] Author: Nathanael Craig DO Service: Anesthesiology Author Type: Anesthesiologist Type: Anesthesia Postprocedure Evaluation Filed: 03/29/2022 8:29 AM Note Text: POST ANESTHESIA EVALUATION NOTE : 1970 Procedure Summary Date: 03/28/22 Room / Location: OR / OR Anesthesia Start: 907 Anesthesia Stop: 163 [...] March 29, 2022 TIME: 8:29 AM CSN: [id number] Normal [facility] [facility] Basic metabolic 2000 panelon 03-29-2022 Anion gap [Moles/Vol] 9 mmol/L Normal 9-18 [facility] Comment on above: Order Comment: Speci men Type: BLOOD SPECIMEN Ordering Facility: [facility] Address: [address] [place] [address] Performed By: #### 5 8410-2 #### [facility] CLIA [id number] [address] [place] [address] [place] Calcium [Mass/Vol] 7.9 mg/dL Low 8.5-10.2 [facility] Comment on above: Order Comment: Speci men Type: BLOOD SPECIMEN Ordering Facility: [facility] Address: [address] [place] [address] Performed By: #### 5 8410-2 #### [facility] CLIA [id number] [address] [place] [address] [place] Chloride [Moles/Vol] 105 mmol/L Normal 97-105 [facility] Comment on above: Order Comment: Speci men Type: BLOOD SPECIMEN Ordering Facility: [facility] Address: [address] [place] [address] Performed By: #### 5 8410-2 #### [facility] CLIA [id number] [address] [place] [address] [place] CO2 [Moles/Vol] 24 mmol/L Normal 22-30 [facility] Comment on above: Order Comment: Speci men Type: BLOOD SPECIMEN Ordering Facility: [facility] Address: [address] [address] Performed By: #### 5 8410-2 #### [facility] CLIA [id number] [place] [facility] Creatinine [Mass/Vol] 0.70 mg/dL Normal 0.58-0.96 [facility] Comment on above: Order Comment: Leanne terry Type: BLOOD SPECIMEN Ordering Facility: [facility] Address: [address] [place] [address] Performed By: #### 5 8410-2 #### [facility] CLIA [id number] [address] [place] [address] [place] ESTIMATED GLOMERULAR FILTRATION RATE 106 mL/min/1.73m??? Normal >=60 [facility] Comment on above: Order Comment: Leanne terry Type: BLOOD SPECIMEN Ordering Facility: [facility] Address: [address] [place] [address] Result Comment: Mary mated Glomerular Filtration Rate [...] GFR. Performed By: #### 5 8410-2 #### [facility] CLIA [id number] [place] [address] [place] Glucose [Mass/Vol] 92 mg/dL Normal 74-99 [facility] Comment on above: Order Comment: Leanne terry Type: BLOOD SPECIMEN Ordering Facility: [facility] Address: [address] [place] [address] Result Comment: The [employer] Diabetes Association (ADA) provides guidance for cutoff [...] Standards of Medical Care in Diabetes 2016, [employer] Diabetes Association. Diabetes Care. 2016.39(Suppl 1). Performed By: #### 5 8410-2 #### [facility] CLIA [id number] [address] [place] [address] [place] Potassium [Moles/Vol] 4.1 mmol/L Normal 3.7-5.1 [facility] Comment on above: Order Comment: Leanne terry Type: BLOOD SPECIMEN Ordering Facility: [facility] Address: [address] [place] [address] Performed By: #### 5 8410-2 #### [facility] CLIA [id number] [address] [place] [address] [place] Sodium [Moles/Vol] 138 mmol/L Normal 136-144 [facility] Comment on above: Order Comment: Leanne terry Type: BLOOD SPECIMEN Ordering Facility: [facility] Address: [address] [place] [address] Performed By: #### 5 8410-2 #### [facility] CLIA [id number] [address] [place] [address] [place] Urea nitrogen [Mass/Vol] 12 mg/dL Normal 7-21 [facility] Comment on above: Order Comment: Leanne terry Type: BLOOD SPECIMEN Ordering Facility: [facility] Address: [address] [place] [address] Performed By: #### 5 8410-2 #### [facility] CLIA [id number] [address] [place] [address] [place] CBC W Auto Differential pane l (Bld)on 03-29-2022 Basophils (Bld) [#/Vol] 0.04 10*3/uL Normal <0.11 [facility] Comment on above: Order Comment: Leanne terry Type: BLOOD SPECIMEN Ordering Facility: [facility] Address: [address] [place], [place] [address] Performed By: #### 5 7021-8 #### [facility] CLIA [id number] [address] [place] [address] [place] Basophils/100 WBC (Bld) 0.6 % Normal [facility] Comment on above: Order Comment: Speci men Type: BLOOD SPECIMEN Ordering Facility: [facility] Address: [address] [place] [address] Performed By: #### 5 7021-8 #### [facility] CLIA [id number] [address] [place] [address] [place] Differential cell count method Nom (Bld) Auto Normal [facility] Comment on above: Order Comment: Speci men Type: BLOOD SPECIMEN Ordering Facility: [facility] Address: [address] [place] [address] Performed By: #### 5 7021-8 #### [facility] CLIA [id number] [address] [place] [address] [place] Eosinophils (Bld) [#/Vol] 0.16 10*3/uL Normal <0.46 [facility] Comment on above: Order Comment: Speci men Type: BLOOD SPECIMEN Ordering Facility: [facility] Address: [address] [place] [address] Performed By: #### 5 7021-8 #### [facility] CLIA [id number] [address] [place] [address] [place] Eosinophils/100 WBC (Bld) 2.3 % Normal [facility] Comment on above: Order Comment: Speci men Type: BLOOD SPECIMEN Ordering Facility: [facility] Address: [address] [place] [address] Performed By: #### 5 7021-8 #### [facility] CLIA [id number] [address] [place] [address] [place] Erythrocyte distribution width (RBC) [Ratio] 12.8 % Normal 11.5-15.0 [facility] Comment on above: Order Comment: Speci men Type: BLOOD SPECIMEN Ordering Facility: [facility] Address: [address] [place] [address] Performed By: #### 5 7021-8 #### [facility] CLIA [id number] [address] [place] [address] [place] Hematocrit (Bld) [Volume fraction] 32.3 % Low 36.0-46.0 [facility] Comment on above: Order Comment: Speci men Type: BLOOD SPECIMEN Ordering Facility: [facility] Address: [address] [place] [address] Performed By: #### 5 7021-8 #### [facility] CLIA [id number] [address] [place] [address] [place] Hemoglobin (Bld) [Mass/Vol] 10.7 g/dL Low 11.5-15.5 [facility] Comment on above: Order Comment: Speci men Type: BLOOD SPECIMEN Ordering Facility: [facility] Address: [address] [place] [address] Performed By: #### 5 7021-8 #### [facility] CLIA [id number] [address] [place] [address] [place] IMMATURE GRAN % 0.3 % Normal [facility] Comment on above: Order Comment: Speci men Type: BLOOD SPECIMEN Ordering Facility: [facility] Address: [address] [place] [address] Performed By: #### 5 7021-8 #### [facility] CLIA [id number] [address] [place] [address] [place] IMMATURE GRAN ABS <0.03 Normal <0.10 [facility] Comment on above: Order Comment: Speci men Type: BLOOD SPECIMEN Ordering Facility: [facility] Address: [address] [place] [address] Performed By: #### 5 7021-8 #### [facility] CLIA [id number] [address] [place] [address] [place] Lymphocytes (Bld) [#/Vol] 1.39 10*3/uL Normal 1.00-4.00 [facility] Comment on above: Order Comment: Speci men Type: BLOOD SPECIMEN Ordering Facility: [facility] Address: [address] [place] [address] Performed By: #### 5 7021-8 #### [facility] CLIA [id number] [address] [place] [address] [place] Lymphocytes/100 WBC (Bld) 19.7 % Normal [facility] Comment on above: Order Comment: Speci men Type: BLOOD SPECIMEN Ordering Facility: [facility] Address: [address] [place] [address] Performed By: #### 5 7021-8 #### [facility] CLIA [id number] [address] [place] [address] [place] MCH (RBC) [Entitic mass] 29.8 pg Normal 26.0-34.0 [facility] Comment on above: Order Comment: Speci men Type: BLOOD SPECIMEN Ordering Facility: [facility] Address: [address] [place] [address] Performed By: #### 5 7021-8 #### [facility] CLIA [id number] [address] [place] [address] [place] MCHC (RBC) [Mass/Vol] 33.1 g/dL Normal 30.5-36.0 [facility] Comment on above: Order Comment: Speci men Type: BLOOD SPECIMEN Ordering Facility: [facility] Address: [address] [place] [address] Performed By: #### 5 7021-8 #### [facility] CLIA [id number] [address] [place] [address] [place] MCV (RBC) [Entitic vol] 90.0 fL Normal 80.0-100.0 [facility] Comment on above: Order Comment: Speci men Type: BLOOD SPECIMEN Ordering Facility: [facility] Address: [address] [place] [address] Performed By: #### 5 7021-8 #### [facility] CLIA [id number] [address] [place] [address] [place] Monocytes (Bld) [#/Vol] 0.55 10*3/uL Normal <0.87 [facility] Comment on above: Order Comment: Speci men Type: BLOOD SPECIMEN Ordering Facility: [facility] Address: [address] [place] [address] Performed By: #### 5 7021-8 #### [facility] CLIA [id number] [address] [place] [address] [place] Monocytes/100 WBC (Bld) 7.8 % Normal [facility] Comment on above: Order Comment: Speci men Type: BLOOD SPECIMEN Ordering Facility: [facility] Address: [address] [place] [address] Performed By: #### 5 7021-8 #### [facility] CLIA [id number] [address] [place] [address] [place] Neutrophils (Bld) [#/Vol] 4.88 10*3/uL Normal 1.45-7.50 [facility] Comment on above: Order Comment: Speci men Type: BLOOD SPECIMEN Ordering Facility: [facility] Address: [address] [place] [address] Performed By: #### 5 7021-8 #### [facility] CLIA [id number] [address] [place] [address] [place] Neutrophils/100 WBC (Bld) 69.3 % Normal [facility] Comment on above: Order Comment: Speci men Type: BLOOD SPECIMEN Ordering Facility: [facility] Address: [address] [place] [address] Performed By: #### 5 7021-8 #### [facility] CLIA [id number] [address] [place] [address] [place] Nucleated RBC (Bld) [#/Vol] 10*3/uL Normal <0.01 [facility] Comment on above: Order Comment: Speci men Type: BLOOD SPECIMEN Ordering Facility: [facility] Address: [address] [place] [address] Performed By: #### 5 7021-8 #### [facility] CLIA [id number] [address] [place] [address] [place] Nucleated RBC/100 WBC (Bld) [Ratio] 0.0 /100 WBC Normal [facility] Comment on above: Order Comment: Speci men Type: BLOOD SPECIMEN Ordering Facility: [facility] Address: [address] [place] [address] Performed By: #### 5 7021-8 #### [facility] CLIA [id number] [address] [place] [address] [place] Platelet mean volume (Bld) [Entitic vol] 9.0 fL Normal 9.0-12.7 [facility] Comment on above: Order Comment: Speci men Type: BLOOD SPECIMEN Ordering Facility: [facility] Address: [address] [place] [address] Performed By: #### 5 7021-8 #### [facility] CLIA [id number] [address] [place] [address] [place] Platelets (Bld) [#/Vol] 241 10*3/uL Normal 150-400 [facility] Comment on above: Order Comment: Speci men Type: BLOOD SPECIMEN Ordering Facility: [facility] Address: [address] [place], [place] [address] Performed By: #### 5 7021-8 #### [facility] CLIA [id number] [address] [place] [address] [place] RBC (Bld) [#/Vol] 3.59 10*6/uL Low 3.90-5.20 [facility] Comment on above: Order Comment: Speci men Type: BLOOD SPECIMEN Ordering Facility: [facility] Address: [address] [place], [place] [address] Performed By: #### 5 7021-8 #### [facility] CLIA [id number] [address] [place] [address] [place] WBC (Bld) [#/Vol] 7.04 10*3/uL Normal 3.70-11.00 [facility] Comment on above: Order Comment: Speci men Type: BLOOD SPECIMEN Ordering Facility: [facility] Address: [address] [place], [place] [address] Performed By: #### 5 7021-8 #### [id number] [address] [place] [address] [place] CONSULT PROGon 03-29-2022 CONSULT PROG HNO ID: [id number] Author: Joslyn Jain APRN.KWESI Service: Pain Management [...] is on liq diet, currently on Dilaudid PEEL OVEN TENDER at 0/0.2/10/6 last 2 hours 06/27 bolus [...] No Relieved: Yes - NOW with increase PEEL OVEN TENDER and Repositioning and PEEL OVEN TENDER Is patient satisfied with pain control: Yes [...] mL PERIPHERAL NERVE CATHETER CONTINUOUS - HYDROmorphone PEEL OVEN TENDER 0.5 mg/mL in NaCl 0.9% 100 mL [...] % 69.3 (more content not included)... Normal [facility] Magnesium SerPl-mCncon 03-29 Magnesium [Mass/Vol] 1.4 mg/dL Low 1.7-2.3 [facility] Comment on above: Order Comment: Speci men Type: BLOOD SPECIMEN Ordering Facility: [facility] Address: [address] [place] [address] Performed By: #### 5 8410-2 #### [facility] CLIA [id number] [place] NURSING PROGon 03-29-2022 NURSING PROG HNO ID: [id number] Author: Dipti Crowley RN Service: Nursing Author Type: Registered Nurse Type: Nursing Progress Note Filed: 03/29/2022 2:00 PM Note Text: Nursing Progress Note Patient Name: Mary Leal Patient Location: __ Daily Note: Patient VSS. RA POx. Pain level better controlled now that PEEL OVEN TENDER initiated. B/L Ropivacaine Tap Blocks with dressings [...] This note was completed by: Dipti Crowley [facility] NURSING PROG HNO ID: [id number] Author: Kev Leone RN Service: ? Author Type: Registered Nurse Type: Nursing Progress Note Filed: 03/29/2022 3:53 AM Note Text: Nursing Progress Note Patient Name: Mary Leal Patient Location: __ Daily Note: 0350: Pt states she is in 10/10 pain, pt has no PO pain meds ordered, page sent to surgery resident This note was completed by: Kev Leone [facility] PT EDon 03-29-2022 PT ED HNO ID: [id number] Author: Merced Morales DTR Service: Nutrition Therapy Author Type: Change Management Consultant Type: Patient Education Filed: 03/29/2022 11:05 AM [...] March 29, 2022 TIME: 11:04 AM PAGER: [facility] Phosphate SerPl-mCncon 03-29 Phosphate [Mass/Vol] 2.9 mg/dL Normal 2.7-4.8 [facility] Comment on above: Order Comment: Speci men Type: BLOOD SPECIMEN Ordering Facility: [facility] Address: [address] [place] [address] Performed By: #### 5 8410-2 #### [facility] CLIA [id number] [address] [place] [address] [place] ANES PRE-OPon 03-28-2022 ANES PRE-OP HNO ID: [id number] Author: Anibal Bertrand MD Service: Anesthesiology Author [...] (FLONASE) 50 mcg/actuation nasal spray Use 1 [place] in each nostril on (more content not included)... [facility] BRIEF OP NOTon 03-28-2022 BRIEF OP NOT HNO ID: [id number] Author: Nita Lamas MD Service: Colorectal Author Type: Fellow Type: Brief Op Note Filed: 03/28/2022 3:43 PM Note Text: BRIEF OPERATIVE NOTE - COLORECTAL SURGERY Log ID: [id number] Surgery/Procedure Date: 03/28/2022 Incision/Procedure Start Time: 9:47 AM Incision Close/Procedure End Time: 3:40 PM Surgeon(s) and Veterinarian Poultry(s): Surgeon(s) and Role: * Mary Obrien MD [...] DATE: March 28, 2022 TIME: 3:42 PM [facility] NURSING PROGon 03-28-2022 NURSING PROG HNO ID: [id number] Author: Merced Lay RN Service: ? Author Type: Registered Nurse Type: Nursing Progress Note Filed: 03/28/2022 6:56 PM Note Text: Nursing Progress Note Patient Name: Mary Leal Patient Location: -PK3B22/FV-[id number]-09 __ Transfer Note: Patient transferred into room/unit PK3B22 in stable condition. Actions taken: No futher actions taken at this time. Will continue to monitor and check with patient. Paged surgical team. Pt has TAP blocks, but orders were discontinued from PACU. New orders for blocks need to be placed in eMAR. Awaiting call back or orders. This note was completed by: Merced Lay [facility] NURSING PROG HNO ID: [id number] Author: Monica Nicole RN Service: Nursing Author Type: Registered Nurse Type: Nursing Progress Note Filed: 03/28/2022 6:35 PM Note Text: Nursing Progress Note Patient Name: Mary Leal Patient Location: [facility] OR POOL/[facility] OR POOL __ Daily Note: 1750: Dr. Novak notified of patients increase in heart rate from arrival to post op. Patient HR now maintaining in the 120s. 1830: residential leasing agent rounding at patient bedside. Dressing and abdomen assessed- drainage to be expected on island dressing. Notified him of patients HR running high and notified that patient normally takes 50mg atenolol but held today for surgery. Patient's pain managed and other VS stable at this time. residential leasing agent is OK with patient going to regular nursing floor at this time. Family updated. This note was completed by: Monica Nicole [facility] NURSING PROG HNO ID: [id number] Author: Vianney Chacon RN Service: Nursing Author [...] (RECOMMENDATION): None Electronically Signed By: Vianney Chacon [facility] OPERATIVE NOon 03-28-2022 OPERATIVE NO HNO ID: [id number] Author: Mary Obrien MD Service: Colorectal Author Type: Physician Type: Operative Report Filed: 03/28/2022 5:06 PM Note Text: COLON AND RECTAL SURGERY OPERATIVE REPORT PATIENT NAME: Mary Leal ADMISSION DATE: 03/28/2022 LOG ID: [id number] SURGERY/PROCEDURE DATE: 03/28/2022 INCISION/PROCEDURE START TIME: 9:47 AM INCISION CLOSE/PROCEDURE END TIME: 3:40 PM AGE: [age] year old SEX: female SURGEON(S)/PROCEDURALI ST(S) AND GRADUATE ASSISTANT ATHLETIC TRAINER(S): Surgeon(s) and Role: * Mary Obrien MD [...] The abdome (more content not included)... Normal [facility] SURGICAL PATHOLOGYon CASE REPORT Normal [facility] Comment on above: Order Comment: Speci men Type: BLOOD SPECIMEN Ordering Facility: [facility] Address: [address] [place] [address] Result Comment: Surg ical Pathology Report Case: [id number] Authorizing Provider: Mary Obrien MD Collected: 03/28/2022 01:43 PM Ordering Location: [facility] Received: 03/28/2022 04:10 PM Operating Room Pathologist: Alexei Rodriguez MD Specimen: COLON RESECTION, terminal ileum with ileostomy Performed By: #### 5 7021-8 #### [facility] CLIA [id number] [address] [place] [address] CLINICAL HISTORY ILEORECTAL ANASTOMOSIS, TAKEDOWN OF ILEOSTOMY Normal [facility] Comment on above: Order Comment: Speci men Type: BLOOD SPECIMEN Ordering Facility: [facility] Address: [address] [place] [address] Performed By: #### 5 7021-8 #### [facility] CLIA [id number] [address] [place] [address] DIAGNOSIS COMMENT The histologic findings are nonspecific [...] of associated inflammation or infectious organisms. Normal [facility] Comment on above: Order Comment: Speci men Type: BLOOD SPECIMEN Ordering Facility: [facility] Address: [address] [place] [address] Performed By: #### 5 7021-8 #### [facility] CLIA [id number] [address] [place] [address] FINAL DIAGNOSIS Normal [facility] Comment on above: Order Comment: Speci men Type: BLOOD SPECIMEN Ordering Facility: [facility] Address: [address] [place] [address] Result Comment: [place] n and terminal ileum with ileostomy, resection: - Colon with patchy active colitis, submucosal fibrosis, acute serositis, and fibrovascular adhesions (see comment). - Small bowel with focal transmural defect, acute serositis, fibrovascular adhesions, and changes consistent with ileostomy site. - Benign lymph nodes. JEL 03/31/2022 Performed By: #### 5 7021-8 #### [facility] CLIA [id number] [address] [place] [address] FINAL PERFORMING LAB Normal [facility] Comment on above: Order Comment: Speci men Type: BLOOD SPECIMEN Ordering Facility: [facility] Address: [address] [place] [address] Result Comment: Diag nostic interpretation performed at [facility], [address] [place] [address] CLIA# [id number] Video Control Operator: Howie Anderson M.D. Performed By: #### 5 7021-8 #### [facility] CLIA [id number] [address] [place] [address] GROSS DESCRIPTION Normal [facility] Comment on above: Order Comment: Speci men Type: BLOOD SPECIMEN Ordering Facility: [facility] Address: [address] [place] [address] Result Comment: A. C OLON RESECTION. Received [...] diverticula. The serosa is jaimes-pink and smooth. Checkout Supervisor sections are submitted from distal to proximal [...] AM Gross examination performed at [facility], [address] [place] [address] CLIA # [id number] Performed By: #### 5 7021-8 #### [facility] CLIA [id number] [place] Q - CBC W/DIFF AND PLTon BASOABS 59 cells/uL Normal 0-200 [facility] Comment on above: Order Comment: [facility] performed at: [employer] [facility], [address] [place] [address], [address] [place] [address], [phone], Video Control Operator: Gopal Hamilton MD [facility] Collection Date/Time: [facility] Results Received Date/Time: [facility] Reported Date/Time: Performed By: #### 9 68T, 95570G, %8293, 84187J, 6399, 496X #### [facility] Default [address] [place] [address] Basophils/100 WBC (Bld) 1.0 % Normal [facility] Comment on above: Order Comment: [facility] performed at: [employer] [facility], [facility], [address] [place] [address], [phone], Video Control Operator: Gopal Hamilton MD [facility] Date/Time: [id number] [facility] Results Received Date/Time: [facility] Reported Date/Time: Performed By: #### 9 68T, 98924F, %8293, 36114N, 6399, 496X #### [facility] [address] [place] [address] EOSABS 171 cells/uL Normal 15-500 [facility] [employer]er Operator Comment on above: Order Comment: [facility] performed at: [employer] [facility], [address] [facility], [address] [place] [address], [address] [place] [address], Video Control Operator: Gopal Hamilton MD [facility] Date/Time: [facility] Results Received Date/Time: [facility] Reported Date/Time: Performed By: #### 9 68T, 67987M, %8293, 66740R, 6399, 496X #### [facility] [address] [place] [address] Eosinophils/100 WBC (Bld) 2.9 % Normal [facility] Comment on above: Order Comment: [facility] performed at: [employer] [employer] [facility], [address] [place] [address], [address] [place] [address], [address] [place] [address], Video Control Operator: Gopal Hamilton MD [facility] Date/Time: [facility] Results Received Date/Time: [facility] Reported Date/Time: Performed By: #### 9 68T, 64965G, %8293, 16702P, 6399, 496X #### [facility] [address] [place] [address] Erythrocyte distribution width (RBC) [Ratio] 12.9 % Normal 11.0-15.0 [facility] [employer]er Operator Comment on above: Order Comment: [facility] performed at: [employer] [facility], [address] [place] [address], [address] [place] [address], [address] [place] [address], Video Control Operator: Gopal Hamilton MD [facility] Collection Date/Time: [facility] Results Received Date/Time: [facility] Reported Date/Time: Performed By: #### 9 68T, 88275H, %8293, 71604A, 6399, 496X #### [facility] [address] [place] [address] Hematocrit (Bld) [Volume fraction] 38.1 % Normal 35.0-45.0 [facility] [employer] Operator Comment on above: Order Comment: [facility] performed at: [place], [address] , [address] [place] [address], [address] [place] [address], Video Control Operator: Gopal Hamilton MD [facility] Date/Time: [facility] Results Received Date/Time: [facility] Reported Date/Time: Performed By: #### 9 68T, 40913P, %8293, 67463Y, 6399, 496X #### [facility] Default [address] [place] [address] Hemoglobin (Bld) [Mass/Vol] 12.9 g/dL Normal 11.7-15.5 [facility] [employer] Operator Comment on above: Order Comment: [facility] performed at: [place], [address] , [address] [place] [address], [address] [place] [address], Video Control Operator: Gopal Hamilton MD [facility] Date/Time: [facility] Results Received Date/Time: [facility] Reported Date/Time: Performed By: #### 9 68T, 05201Y, %8293, 60937B, 6399, 496X #### [facility] [address] [place] [address] Lymphocytes (Bld) [#/Vol] 1.375 10*3/uL Normal 850-3900 [facility] [employer] Operator Comment on above: Order Comment: [facility] performed at: [place], [address] , [address] [place] [address], [address] [place] [address], Video Control Operator: Gopal Hamilton MD [facility] Date/Time: [id number] [facility] Results Received Date/Time: [facility] Reported Date/Time: Performed By: #### 9 68T, 15752G, %8293, 80532H, 6399, 496X #### [facility] [address] [place] [address] Lymphocytes/100 WBC (Bld) 23.3 % Normal [facility] [employer] Operator Comment on above: Order Comment: [facility] performed at: [facility], [facility], [address] [place] [address], [address] [place] [address], [address] [place] [address], Video Control Operator: Gopal Hamilton MD [facility] Date/Time: [facility] Results Received Date/Time: [facility] Reported Date/Time: Performed By: #### 9 68T, 84018D, %8293, 69232S, 6399, 496X #### [facility] [address] [place] [address] MCH (RBC) [Entitic mass] 30.0 pg Normal 27.0-33.0 [facility] Specialist Comment on above: Order Comment: [facility] performed at: [facility], [facility], [address] [place] [address], [address] [place] [address], [address] [place] [address], Video Control Operator: Gopal Hamilton MD [facility] Date/Time: [facility] Results Received Date/Time: [facility] Reported Date/Time: Performed By: #### 9 68T, 77746Y, %8293, 78751S, 6399, 496X #### [facility] [address] [place] [address] MCHC (RBC) [Mass/Vol] 33.9 g/dL Normal 32.0-36.0 [facility] Comment on above: Order Comment: [facility] performed at: [facility], [facility], [address] [place] [address], [address] [place] [address], [address] [place] [address], Video Control Operator: Gopal Hamilton MD [facility] Date/Time: [facility] Results Received Date/Time: [facility] Reported Date/Time: Performed By: #### 9 68T, 85510F, %8293, 29958L, 6399, 496X #### [facility] [address] [place] [address] MCV (RBC) [Entitic vol] 88.6 fL Normal 80.0-100.0 [facility] Comment on above: Order Comment: [facility] performed at: [place], [address] [place] [address], [address] [place] [address], [address] [place] [address], Video Control Operator: Gopal Hamilton MD [facility] Date/Time: [facility] Results Received Date/Time: [facility] Reported Date/Time: Performed By: #### 9 68T, 59120M, %8293, 97424N, 6399, 496X #### [facility] [address] [place] [address] MONOABS 460 cells/uL Normal 200-950 [facility] Specialist Comment on above: Order Comment: [facility] performed at: [place], [address] [place] [address], [address] [place] [address], [address] [place] [address], Video Control Operator: Gopal Hamilton MD [facility] Date/Time: [facility] Results Received Date/Time: [facility] Reported Date/Time: Performed By: #### 9 68T, 09671A, %8293, 71036E, 6399, 496X #### [facility] [address] [place] [address] Monocytes/100 WBC (Bld) 7.8 % Normal [facility] Comment on above: Order Comment: [facility] performed at: [place], [address] [place] [address], [address] [place] [address], [address] [place] [address], Video Control Operator: Gopal Hamilton MD [facility] Date/Time: [id number] [facility] Results Received Date/Time: [facility] Reported Date/Time: Performed By: #### 9 68T, 47091W, %8293, 65337Z, 6399, 496X #### [facility] [address] [place] [address] Neutrophils (Bld) [#/Vol] 3.835 10*3/uL Normal 4761-5000 [facility] Comment on above: Order Comment: [facility] performed at: [place], [address] [place] [address], [address] [place] [address], [address] [place] [address], Video Control Operator: Gopal Hamilton MD [facility] Date/Time: [facility] Results Received Date/Time: [facility] Reported Date/Time: Performed By: #### 9 68T, 87055B, %8293, 21283H, 6399, 496X #### [facility] [address] [place] [address] Neutrophils/100 WBC (Bld) 65 % Normal [facility] Comment on above: Order Comment: [facility] performed at: [place], [address] [place] [address], [address] [place] [address], [address] [place] [address], Video Control Operator: Gopal Hamilton MD [facility] Date/Time: [facility] Results Received Date/Time: [facility] Reported Date/Time: Performed By: #### 9 68T, 12568B, %8293, 35319I, 6399, 496X #### [facility] [address] [place] [address] Platelet mean volume (Bld) [Entitic vol] 9.3 fL Normal 7.5-12.5 [facility] [employer] Operator Comment on above: Order Comment: [facility] performed at: [place], [address] [place] [address], [address] [place] [address], [address] [place] [address], Video Control Operator: Gopal Hamilton MD [facility] Date/Time: [id number] [facility] Results Received Date/Time: [facility] Reported Date/Time: Performed By: #### 9 68T, 73397Y, %8293, 02879B, 6399, 496X #### [facility] [address] [place] [address] Platelets (Bld) [#/Vol] 409 10*3/uL High 140-400 [facility] Comment on above: Order Comment: [facility] Testing performed at: [facility] [employer] [facility], [address] , [address] [place] [address], [address] [place] [address], Video Control Operator: Gopal Hamilton MD [facility] Collection Date/Time: [facility] Results Received Date/Time: [facility] Reported Date/Time: Performed By: #### 9 68T, 16893X, %8293, 07533S, 6399, 496X #### [facility] [address] [place] [address] RBC (Bld) [#/Vol] 4.30 10*6/uL Normal 3.80-5.10 [facility] Comment on above: Order Comment: [facility] performed at: [facility], [address] , [address] [place] [address], [address] [place] [address], Video Control Operator: Gopal Hamilton MD [facility] Collection Date/Time: [facility] Results Received Date/Time: [facility] Reported Date/Time: Performed By: #### 9 68T, 07757P, %8293, 84726C, 6399, 496X #### [facility] [address] [place] [address] WBC (Bld) [#/Vol] 5.9 10*3/uL Normal 3.8-10.8 [facility] Comment on above: Order Comment: [facility] performed at: [facility], [facility], [address], [address] [place] [address], [address] [place] [address], Video Control Operator: Gopal Hamilton MD [facility] Collection Date/Time: [facility] Results Received Date/Time: [facility] Reported Date/Time: Performed By: #### 9 68T, 57490V, %8293, 34924C, 6399, 496X #### [facility] Default [address] [place] [address] Q - COMPREHENSIVE METABOLIC PANEL W/EGFRon 03-10-2022 Albumin [Mass/Vol] 4.3 g/dL Normal 3.6-5.1 [facility] Specialist Comment on above: Order Comment: [facility] performed at: [place], [address] [place] [address], [address] [place] [address], [address] [place] [address], Video Control Operator: Gopal Hamilton MD [facility] Collection Date/Time: [facility] Results Received Date/Time: [facility] Reported Date/Time: Performed By: #### 9 68T, 99730R, %8293, 01659E, 6399, 496X #### [facility] [address] [place] [address] Albumin/Globulin [Mass ratio] 1.7 {ratio} Normal 1.0-2.5 [facility] [employer] Operator Comment on above: Order Comment: [facility] performed at: [place], [address] [place] [address], [address] [place] [address], [address] [place] [address], Video Control Operator: Gopal Hamilton MD [facility] Collection Date/Time: [facility] Results Received Date/Time: [facility] Reported Date/Time: Performed By: #### 9 68T, 34466R, %8293, 79343D, 6399, 496X #### [facility] Default [address] [place] [address] ALP [Catalytic activity/Vol] 134 U/L High 31-125 [facility] [employer] Operator Comment on above: Order Comment: [facility] performed at: [place], [address] [place] [address], [address] [place] [address], [address] [place] [address], Video Control Operator: Gopal Hamilton MD [facility] Collection Date/Time: [facility] Results Received Date/Time: [facility] Reported Date/Time: Performed By: #### 9 68T, 23341E, %8293, 37230M, 6399, 496X #### [facility] Default [address] [place] [address] ALT [Catalytic activity/Vol] 41 U/L High 6-29 [facility] Comment on above: Order Comment: [facility] performed at: [place], [address] , [address] [place] [address], [address] [place] [address], Video Control Operator: Gopal Hamilton MD [facility] Collection Date/Time: [facility] Results Received Date/Time: [facility] Reported Date/Time: Performed By: #### 9 68T, 72715N, %8293, 31985K, 6399, 496X #### [facility] Default [address] [place] [address] AST [Catalytic activity/Vol] 33 U/L Normal 10-35 [facility] Comment on above: Order Comment: [facility] performed at: [place], [address] , [address] [place] [address], [address] [place] [address], Video Control Operator: Gopal Hamilton MD [facility] Collection Date/Time: [facility] Results Received Date/Time: [facility] Reported Date/Time: Performed By: #### 9 68T, 78536C, %8293, 89163M, 6399, 496X #### [facility] [address] [place] [address] BUN/CREA 17 NOT APPLICABLE Normal 6-22 [facility] Comment on above: Order Comment: [facility] performed at: [place], [address] , [address] [place] [address], [address] [place] [address], Video Control Operator: Gopal Hamilton MD [facility] Collection Date/Time: [facility] Results Received Date/Time: [facility] Reported Date/Time: Performed By: #### 9 68T, 74261V, %8293, 82611S, 6399, 496X #### [facility] Default [address] [place] [address] Calcium [Mass/Vol] 9.6 mg/dL Normal 8.6-10.2 [facility] Specialist Comment on above: Order Comment: [facility] performed at: [place], [address] [facility], [address] [place] [address], [address] [place] [address], Video Control Operator: Gopal Hamilton MD [facility] Collection Date/Time: [facility] Results Received Date/Time: [facility] Reported Date/Time: Performed By: #### 9 68T, 16764W, %8293, 49665C, 6399, 496X #### [facility] Default [address] [place] [address] Chloride [Moles/Vol] 103 mmol/L Normal 98-110 [facility] Specialist Comment on above: Order Comment: [facility] Testing performed at: [place], [address] [facility], [address] [place] [address], [address] [place] [address], Video Control Operator: Gopal Hamilton MD [facility] Collection Date/Time: [facility] Results Received Date/Time: [facility] Reported Date/Time: Performed By: #### 9 68T, 09058W, %8293, 32815Q, 6399, 496X #### [facility] Default [address] [place] [address] CO2 [Moles/Vol] 27 mmol/L Normal 20-32 [facility] Specialist Comment on above: Order Comment: [facility] Testing performed at: [place], [address] [facility], [address] [place] [address], [address] [place] [address], Video Control Operator: Gopal Hamilton MD [facility] Collection Date/Time: [facility] Results Received Date/Time: [facility] Reported Date/Time: Performed By: #### 9 68T, 00689X, %8293, 29370B, 6399, 496X #### [facility] Default [address] [place] [address] Creatinine [Mass/Vol] 0.65 mg/dL Normal 0.50-1.10 [facility] R[employer] Mixer Operator Comment on above: Order Comment: [facility] performed at: [place], [address] [place] [address], [address] [place] [address], [address] [place] [address], Video Control Operator: Gopal Hamilton MD [facility] Date/Time: [facility] Results Received Date/Time: [facility] Reported Date/Time: Performed By: #### 9 68T, 28392B, %8293, 14294T, 6399, 496X #### [facility] Default [address] [place] [address] eGFRAA ([facility]) 121 mL/min/1.73m2 Normal > OR = 60 [facility] [employer]er Operator Comment on above: Order Comment: [facility] performed at: [place], [address] [place] [address], [address] [place] [address], [address] [place] [address], Video Control Operator: Gopal Hamilton MD [facility] Collection Date/Time: [facility] Results Received Date/Time: [facility] Reported Date/Time: Performed By: #### 9 68T, 96690H, %8293, 50875D, 6399, 496X #### [facility] Default [address] [place] [address] eGFRNAA ([facility]) 104 mL/min/1.73m2 Normal > OR = 60 No rthern [place] [employer] Operator Comment on above: Order Comment: [facility] performed at: [place], [address] [place] [address], [address] [place] [address], [address] [place] [address], Video Control Operator: Gopal Hamilton MD [facility] Collection Date/Time: [facility] Results Received Date/Time: [facility] Reported Date/Time: Performed By: #### 9 68T, 24567J, %8293, 17178C, 6399, 496X #### [facility] Default [address] [place] [address] Globulin (S) [Mass/Vol] 2.5 g/dL Normal 1.9-3.7 [facility] Specialist Comment on above: Order Comment: [facility] Testing performed at: [place], [address] [facility], [address] [place] [address], [address] [place] [address], Video Control Operator: Gopal Hamilton MD [facility] Collection Date/Time: [facility] Results Received Date/Time: [facility] Reported Date/Time: Performed By: #### 9 68T, 50381A, %8293, 03213O, 6399, 496X #### [facility] Default [address] [place] [address] Glucose [Mass/Vol] 94 mg/dL Normal 65-99 [facility] Specialist Comment on above: Order Comment: [facility] Testing performed at: [place], [address] , [address] [place] [address], [address] [place] [address], Video Control Operator: Gopal Hamilton MD [facility] Collection Date/Time: [facility] Results Received Date/Time: [facility] Reported Date/Time: Result Comment: Fasting reference interval Performed By: #### 9 68T, 79494E, %8293, 27317C, 6399, 496X #### [facility] Default [address] [place] [address] Potassium [Moles/Vol] 4.4 mmol/L Normal 3.5-5.3 [facility] Specialist Comment on above: Order Comment: [facility] Testing performed at: [employer] [facility], [address] [facility], [address] [place] [address], [address] [place] [address], Video Control Operator: Gopal Hamilton MD [facility] Collection Date/Time: [facility] Results Received Date/Time: [facility] Reported Date/Time: Performed By: #### 9 68T, 72732G, %8293, 79679O, 6399, 496X #### [facility] Default [address] [place] [address] Protein [Mass/Vol] 6.8 g/dL Normal 6.1-8.1 Jay gambino [place] [employer] Operator Comment on above: Order Comment: [facility] performed at: [place], [address] , [address] [place] [address], [address] [place] [address], Video Control Operator: Gopal Hamilton MD [facility] Date/Time: [facility] Results Received Date/Time: [facility] Reported Date/Time: Performed By: #### 9 68T, 03070E, %8293, 33668Z, 6399, 496X #### [facility] Default [address] [place] [address] Sodium [Moles/Vol] 138 mmol/L Normal 135-146 Jay rn [place] [employer] Operator Comment on above: Order Comment: [facility] performed at: [place], [address] , [address] [place] [address], [address] [place] [address], Video Control Operator: Gopal Hamilton MD [facility] Date/Time: [facility] Results Received Date/Time: [facility] Reported Date/Time: Performed By: #### 9 68T, 80448N, %8293, 30608A, 6399, 496X #### [facility] Default [address] [place] [address] TBIL <0.3 Normal 0.2-1.2 [facility] [employer] Operator Comment on above: Order Comment: [facility] performed at: [place], [address] , [address] [place] [address], [address] [place] [address], Video Control Operator: Gopal Hamilton MD [facility] Collection Date/Time: [facility] Results Received Date/Time: [facility] Reported Date/Time: Performed By: #### 9 68T, 00705G, %8293, 81690G, 6399, 496X #### [facility] Default [address] [place] [address] Urea nitrogen [Mass/Vol] 11 mg/dL Normal 7-25 [facility] [employer] Operator Comment on above: Order Comment: [facility] performed at: [place], [address] , [address] [place] [address], [address] [place] [address], Video Control Operator: Gopal Hamilton MD [facility] Collection Date/Time: [facility] Results Received Date/Time: [facility] Reported Date/Time: Performed By: #### 9 68T, 77001O, %8293, 12448B, 6399, 496X #### [facility] [address] [place] [address] Q - DLDL REFLEXon 03-10-2022 Cholesterol in LDL [Mass/Vol] 87 mg/dL Normal <100 [facility] [employer] Operator Comment on above: Order Comment: [facility] performed at: [place], [address] [facility], [address] [place] [address], [address] [place] [address], Video Control Operator: Gopal Hamilton MD [facility] Date/Time: [facility] Results Received Date/Time: [facility] Reported Date/Time: Result Comment: Desirable range <100 mg/dL for primary prevention; <70 mg/dL for patients with CHD or diabetic patients with > or = 2 CHD risk factors. Performed By: #### 9 68T, 66910S, %8293, 36182Q, 6399, 496X #### [facility] [address] [place] [address] Q - HEMOGLOBIN A1Con 022 HEMOGLOBIN A1c 5.0 % of total Hgb Normal <5.7 No [facility] Comment on above: Order Comment: [facility] performed at: [place], [address] , [address] [place] [address], [address] [place] [address], Video Control Operator: Gopal Hamilton MD [facility] Date/Time: [...] diagnosis of diabetes in children. According to [employer] (ADA) guidelines, hemoglobin A1c <7.0% represents optimal control in non- diabetic patients. Different metrics may apply to specific patient populations. Standards of Medical Care in Diabetes(ADA). Performed By: #### 9 68T, 18176Q, %8293, 67974U, 6399, 496X #### [facility] [address] [place] [address] Q - Lipid Panelon 03-10-2022 Cholesterol [Mass/Vol] 230 mg/dL High <200 [facility] [employer] Operator Comment on above: Order Comment: [facility] performed at: [place], [address] [place] [address], [address] [place] [address], [address] [place] [address], Video Control Operator: Gopal Hamilton MD [facility] Date/Time: [facility] Results Received Date/Time: [facility] Reported Date/Time: Performed By: #### 9 68T, 91220A, %8293, 98850I, 6399, 496X #### [facility] Default [address] [place] [address] Cholesterol in HDL [Mass/Vol] 52 mg/dL Normal > OR = 50 [facility] [employer] Operator Comment on above: Order Comment: [facility] performed at: [place], [address] , [address] [place] [address], [address] [place] [address], Video Control Operator: Gopal Hamilton MD [facility] Date/Time: [facility] Results Received Date/Time: [facility] Reported Date/Time: Performed By: #### 9 68T, 56011Q, %8293, 75467Q, 6399, 496X #### [facility] Default [address] [place] [address] Cholesterol.total/Cho lesterol in HDL [Mass ratio] 4.4 {ratio} Normal <5.0 [facility] Specialist Comment on above: Order Comment: [facility] performed at: [place], [address] [place] [address], [address] [place] [address], [address] [place] [address], Video Control Operator: Gopal Hamilton MD [facility] Date/Time: [facility] Results Received Date/Time: [facility] Reported Date/Time: Performed By: #### 9 68T, 74140U, %8293, 30548G, 6399, 496X #### [facility] Default [address] [place] [address] LDLD SEE NOTE Normal [facility] [employer] Operator Comment on above: Order Comment: [facility] performed at: [place], [address] [place] [address], [address] [place] [address], [address] [place] [address], Video Control Operator: Gopal Hamilton MD [facility] Date/Time: [...] LDL-C. Estevan SCHILLING et al. ZANA. 2013;310(19): 7057-5790 ([email or web address]) Performed By: #### 9 68T, 85670I, %8293, 57158M, 6399, 496X #### [facility] Default [address] [place] [address] NON HDL CHOLESTEROL 178 mg/dL (calc) High <130 [facility] R[employer]er Operator Comment on above: Order Comment: [facility] performed at: [employer] [facility], [address] [place] [address], [address] [place] [address], [address] [place] [address], Video Control Operator: Gopal Hamilton MD [facility] Date/Time: [facility] Results Received Date/Time: [facility] Reported Date/Time: Result Comment: For patients with diabetes plus 1 major ASCVD risk factor, treating to a non-HDL-C goal of <100 mg/dL (LDL-C of <70 mg/dL) is considered a therapeutic option. Performed By: #### 9 68T, 68789E, %8293, 78053J, 6399, 496X #### [facility] Default [address] [place] [address] Triglyceride [Mass/Vol] 410 mg/dL High <150 [facility] Roto Mixer Operator Comment on above: Order Comment: [facility] Testing performed at: [facility] [employer] [facility], [address] [place] [address], [address] [place] [address], [address] [place] [address], Video Control Operator: Gopal Hamilton MD [facility] Collection Date/Time: [facility] Results Received Date/Time: [facility] Reported Date/Time: Result Comment: If a non-fasting specimen was collected, consider repeat triglyceride testing on a fasting specimen if clinically indicated. João et al. J. of Clin. Lipidol. 2015;9:129-169. Performed By: #### 9 68T, 60804F, %8293, 37326S, 6399, 496X #### [facility] Default [address] [place] [address] Q - TROPONIN Ion 03-10-2022 TROPONIN I 3 ng/L Normal < OR = 47 [facility] Specialist Comment on above: Order Comment: [facility] Testing performed at: [employer] [facility], [address] [place] [address] Rd, [address] [facility], [place], [address], Video Control Operator: Gopal Hamilton MD [facility] Collection Date/Time: [facility] Results Received Date/Time: [facility] Reported Date/Time: Result Comment: In accord with published recommendations, serial testing of troponin I at intervals of 2 to 4 hours for up to 12 to 24 hours is suggested in order to corroborate a single troponin I result. An elevated troponin alone is not sufficient to make the diagnosis of OR. Performed By: #### 9 68T, 33949P, %8293, 21887A, 6399, 496X #### [facility] Default [address] [place] [id number] UA DIP, URINE (POC)on 2021 BILIRUBIN UA (POCT) Negative Negative [facility] CLARITY UA (POCT) Clear [facility] COLOR UA (POCT) Yellow [facility] GLUCOSE UA (POCT) Negative Negative mg/dL [facility] HEMOGLOBIN/BLOOD UA (POCT) Negative Negative [facility] KETONE UA (POCT) Negative Negative mg/dL [facility] LEUKOCYTES UA (POCT) Negative Negative [facility] NITRITE UA (POCT) Negative Negative [facility] PH UA (POCT) 5.0 4.5 - 8.0 [facility] Protein Ql (U) Trace Abnormal Negative mg/dL [facility] SPECIFIC GRAVITY UA (POCT) >=1.030 1.005 - 1.030 [facility] UROBILINOGEN UA (POCT) 0.2 E.U./dL Normal E.U./dL [facility] CNTHERAPYon 01-31-2022 CNTHERAPY OT/PT/Speech Visit (PTLHO) MARY LEAL ([id number]) 1970 F Date Time Provider Department 01/31/22 10:30 AM [facility] Date Time Provider Department Center 01/31/2022 10:30 AM [id number] WOODWARD [facility] Reason for Visit: Physical Therapy [503] Primary [...] (FLONASE) 50 mcg/actuation nasal spray Use 1 [place] in each nostril once daily. - carBAMazepine [...] Take 50 mg by mouth once daily. [facility] CNTHERAPYon 01-24-2022 CNTHERAPY OT/PT/Speech Visit (PTLHO) MARY LEAL ([id number]) 1970 F Date Time Provider Department 01/24/22 10:30 AM [facility] [place] Date Time Provider Department Center 01/24/2022 10:30 [id number]: [facility] [...] (FLONASE) 50 mcg/actuation nasal spray Use 1 [place] in each nostril once daily. - carBAMazepine [...] Take 50 mg by mouth once daily. [facility] CNTHERAPYon 01-18-2022 CNTHERAPY OT/PT/Speech Visit (PTLHO) MARY LEAL ([id number]) 1970 F Date Time Provider Department 01/18/22 12:15 PM [facility] Time Provider Department [place] 01/18/2022 12:15 PM [id number], KATHRYN [facility] Reason for Visit: PT Eval [...] (FLONASE) 50 mcg/actuation nasal spray Use 1 [place] in each nostril once daily. - carBAMazepine [...] mg by mouth once daily. Letter Text [facility]21 [facility] HNO ID: [id number] Author: Sonido Owen MD Service: Colorectal Author [...] 50 mg Finesse (more content not included)... [facility] CONSULTon 12-27-2021 CONSULT HNO ID: [id number] Author: Dai Hines RN Service: Wound/Ostomy Author [...] downward Mucosal condition and color: Red and [place] and moist. Boni: No Mucocutaneous Junction: Intact [...] one piece cut to fit drainable pouch (#27015) and Coloplast Brava moldable ring (2mm) #[id number]. Brava barrier strips, product # [id number] applied around the border of the pouch. INCISION Degree of approximation: 100% Approximating devices: Surgical Glue Drainage: None Method of Management: PRODUCT DELIVERY SPECIALIST Time Increment: 45 minutes Comments: NA Supplies [...] THE CHART OR MODIFY PRINTED COPY. Normal [facility] NURSING PROGon 12-27-2021 NURSING PROG HNO ID: [id number] Author: Marizol Hankins RN Service: ? Author Type: Registered Nurse Type: Nursing Progress Note Filed: 12/27/2021 4:39 PM Note Text: Nursing Progress Note Patient Name: Mary Leal Patient [id number]/TX4H-35 __ Daily Note: Pt AANDO x 3. Lap site PRODUCT DELIVERY SPECIALIST with glue, no drainage. Pt on GI [...] This note was completed by: Marizol Hankins [facility] NUTRITIONon 12-27-2021 NUTRITION HNO ID: [id number] Author: Merced Morales DTR Service: Nutrition Therapy Author Type: Change Management Consultant Type: Nutrition Filed: 12/27/2021 12:16 PM Note Text: NUTRITION THERAPY SHELVING SUPERVISOR NOTE SERVICE DATE: 12/27/2021 SERVICE TIME: [...] DATE: December 27, 2021 TIME: 12:15 PM [facility] PT EDon 12-27-2021 PT ED HNO ID: [id number] Author: Merced Morales DTR Service: Nutrition Therapy Author Type: Change Management Consultant Type: Patient Education Filed: 12/27/2021 12:16 PM [...] 27, 2021 TIME: 12:16 PM PAGER: Normal [facility] Basic Metabolic Panlon 12-26 Anion gap [Moles/Vol] 9 mmol/L Normal 9-18 [facility] Comment on above: Performed By: #### B MP #### [place] [address] Calcium [Mass/Vol] 8.5 mg/dL Normal 8.5-10.5 [facility] Comment on above: Performed By: #### B MP #### [facility] [place] [address] Chloride [Moles/Vol] 102 mmol/L Normal 98-110 [facility] Comment on above: Performed By: #### B MP #### [place] [address] CO2 [Moles/Vol] 28 mmol/L Normal 23-32 [facility] Comment on above: Performed By: #### B MP #### [place] [phone] Creatinine [Mass/Vol] 0.62 mg/dL Low 0.70-1.40 [facility] Comment on above: Performed By: #### B MP #### [place] [address] eGFR- Amer. >60 Normal >59 [facility] Comment on above: Performed By: #### B MP #### [place] [address] eGFR-All Other Races >60 Normal >59 [facility] Comment on above: Result Comment: [...] [email or web address]. Performed By: #### B MP #### [place] [address] Glucose [Mass/Vol] 71 mg/dL Normal 65-100 [facility] Comment on above: Performed By: #### B MP #### [place] [address] Potassium [Moles/Vol] 4.0 mmol/L Normal 3.5-5.0 [facility] Comment on above: Performed By: #### B MP #### [place] [id number] [place] [phone] Sodium [Moles/Vol] 139 mmol/L Normal 132-148 [facility] Comment on above: Performed By: #### B MP #### [place] [id number] [place] [phone] Urea nitrogen [Mass/Vol] 10 mg/dL Normal 8-25 [facility] Comment on above: Performed By: #### B MP #### [place] [phone] NURSING PROGon 12-26-2021 NURSING PROG HNO ID: [id number] Author: Dipti Crowley RN Service: Nursing Author Type: Registered Nurse Type: Nursing Progress Note Filed: 12/26/2021 5:25 PM Note Text: Nursing Progress Note Patient Name: Mary Leal Patient Location: [place] [address] __ Daily Note: Call discontinued as directed in orders. 700cc output from call. 250cc NS instilled and then call catheter removed. Patient assisted to BSC and voided 200cc pink tinged urine. Patient assisted back to bed, not wanting to go to chair. Call light in reach. This note was completed by: Dipti Crowley [facility] NURSING PROG HNO ID: [id number] Author: Dipti Crowley RN Service: Nursing Author Type: Registered Nurse Type: Nursing Progress Note Filed: 12/26/2021 3:51 PM Note Text: Nursing Progress Note Patient Name: Mary Leal Patient Location: [place] [address]/[place]6W-42 __ Daily Note: Patient AANDOx3. VSS. 2L NC POx. IVF infusing as ordered. Dilaudid PEEL OVEN TENDER, OXY IR on for pain. Patient drowsy yet easily arousable. Lap sites and transverse incision ELENI with glue. Ileostomy draining liquid brown. Call draining clear yellow. PAS on. No edema. Fa,saman at bed side. Call light in reach. This note was completed by: Dipti Crowley Normal [facility] Basic Metabolic Panlon 12-25 Anion gap [Moles/Vol] 9 mmol/L Normal 9-18 [facility] Comment on above: Performed By: #### B MP #### [place] [phone] Calcium [Mass/Vol] 8.5 mg/dL Normal 8.5-10.5 [facility] Comment on above: Performed By: #### B MP #### [address] Chloride [Moles/Vol] 104 mmol/L Normal 98-110 [facility] Comment on above: Performed By: #### B MP #### [place] [phone] CO2 [Moles/Vol] 28 mmol/L Normal 23-32 [facility] Comment on above: Performed By: #### B MP #### [place] [phone] Creatinine [Mass/Vol] 0.72 mg/dL Normal 0.70-1.40 [facility] Comment on above: Performed By: #### B MP #### [place] [phone] eGFR- Amer. >60 Normal >59 [facility] Comment on above: Performed By: #### B MP #### [place] [address] eGFR-All Other Races >60 Normal >59 [facility] Comment on above: Result Comment: [...] [email or web address]. Performed By: #### B MP #### [place] [phone] Glucose [Mass/Vol] 91 mg/dL Normal 65-100 [facility] Comment on above: Performed By: #### B MP #### [place] [phone] Potassium [Moles/Vol] 4.0 mmol/L Normal 3.5-5.0 [facility] Comment on above: Performed By: #### B MP #### [place] [phone] Sodium [Moles/Vol] 141 mmol/L Normal 132-148 [facility] Comment on above: Performed By: #### B MP #### [place] [phone] Urea nitrogen [Mass/Vol] 12 mg/dL Normal 8-25 [facility] Comment on above: Performed By: #### B MP #### [place] [phone] CASE MGT INLOIS Jensen 2021 CASE MGT INIT FIDEL HNO ID: [id number] Author: TITO Whitt Service: ? Author Type: Motorcoach Driver Type: Care Mgt Initial Assessment Filed: 12/25/2021 11:43 AM Note Text: CARE MANAGEMENT: ASSESSMENT AND DISCHARGE PLAN SERVICE DATE: December 25, 2021 SERVICE TIME: 11:39 AM PRIMARY CARE PHYSICIAN: Eliceo Gómez DO ADMISSION STATUS: Inpatient Needs Prior to Discharge: Facility or Agency Choices;Home Care Order MEDICAL: PARAMOUNT ADVANTAGE MEDICAID Patient/Checkout Supervisor Stated Goals: To have reduction in symptoms Health Insurance: [place] [facility] Issues Impacting Discharge Plan: None Last Discharge Date: 10/14/20 Is this Within the Past 30 days? Last discharge within 30 days: No Advance Directive: Current Advance Directive: Health Care Power of Application Infrastructure Engineer In Chart: No Health LiteracyHow often [...] None Has the Patient Been in a Correction Facility in the Past 30 days?: No [...] Completely I feel financially burdened by my [id number]-jhwwsx expenses for my prescription medication:: 0 - Disagree Completely Risk Score: 0 Patient is categorized as: Low risk < 2 Are you interested in bedside delivery of your medications? Yes Is Patient Psychosocially Complex?: No ASSESSMENT AND PLAN: Medical Needs: Medical Needs: None Psychosocial Needs: Psychosocial Needs: None FREEDOM OF CHOICE EXPLAINED: [place] of Choice Given: Yes Level of Care Discussed: Home Care Financial Disclosure Provided: Yes Financial Disclosure Comments: careport Provider List: Home Care Provider list within the patient's requested geographic area shared with the patient/family: Yes within: 15 miles of zip code: [address] Quality and resource use metrics shared with [...] bedside with pt during assessment. Charo Obando [phone]. Home care referrals sent. Daughter to transport at time of discharge. SIGNATURE: TITO Whitt PATIENT NAME: Mary Leal DATE: December 25, 2021 TIME: 11:39 AM PAGER/CONTACT #: [phone] Normal [facility] CBC and Differentialon 12-25 Abs Baso 0.03 k/uL Normal <0.11 [facility] Comment on above: Performed By: #### 5 7021-8 #### [facility] CLIA [id number] [address] [place] [address] [place] Abs [place] 0.45 k/uL Normal <0.87 [facility] Comment on above: Performed By: #### 5 7021-8 #### [facility] CLIA [id number] [address] [place] [address] [place] Abs Neut 3.85 k/uL Normal 1.45-7.50 [facility] Comment on above: Performed By: #### 5 7021-8 #### [facility] CLIA [id number] [address] [place] [address] [place] Absolute nRBC <0.01 Normal <0.01 [facility] Comment on above: Performed By: #### 5 7021-8 #### [facility] CLIA [id number] [address] [place] [address] [place] Basophils/100 WBC (Bld) 0.5 % Normal [facility] Comment on above: Performed By: #### 5 7021-8 #### [facility] CLIA [id number] [address] [place] [address] [place] DTYPE Auto Diff Normal [facility] Comment on above: Performed By: #### 5 7021-8 #### [facility] CLIA [id number] [address] [place] [address] [place] Eosinophils (Bld) [#/Vol] 0.14 10*3/uL Normal <0.46 [facility] Comment on above: Performed By: #### 5 7021-8 #### [facility] CLIA [id number] [address] [place] [address] [place] Eosinophils/100 WBC (Bld) 2.3 % Normal [facility] Comment on above: Performed By: #### 5 7021-8 #### [facility] CLIA [id number] [address] [place] [address] [place] Erythrocyte distribution width (RBC) [Ratio] 11.6 % Normal 11.5-15.0 [facility] Comment on above: Performed By: #### 5 7021-8 #### [facility] CLIA [id number] [address] [place] [address] [place] Hematocrit (Bld) [Volume fraction] 35.2 % Low 36.0-46.0 [facility] Comment on above: Performed By: #### 5 7021-8 #### [facility] CLIA [id number] [address] [place] [address] [place] Hemoglobin (Bld) [Mass/Vol] 11.6 g/dL Normal 11.5-15.5 [facility] Comment on above: Performed By: #### 5 7021-8 #### [facility] CLIA [id number] [address] [place] [address] [place] Lymphocytes (Bld) [#/Vol] 1.47 10*3/uL Normal 1.00-4.00 [facility] Comment on above: Performed By: #### 5 7021-8 #### [facility] CLIA [id number] [address] [place] [address] [place] Lymphocytes/100 WBC (Bld) 24.7 % Normal [facility] Comment on above: Performed By: #### 5 7021-8 #### [facility] CLIA [id number] [address] [place] [address] [place] MCH 29.5 pG Normal 26.0-34.0 [facility] Comment on above: Performed By: #### 5 7021-8 #### [facility] CLIA [id number] [address] [place] [address] [place] MCHC (RBC) [Mass/Vol] 33.0 g/dL Normal 30.5-36.0 [facility] Comment on above: Performed By: #### 5 7021-8 #### [facility] CLIA [id number] [address] [place] [address] [place] MCV (RBC) [Entitic vol] 89.6 fL Normal 80.0-100.0 [facility] Comment on above: Performed By: #### 5 7021-8 #### [facility] CLIA [id number] [address] [place] [address] [place] Monocytes/100 WBC (Bld) 7.6 % Normal [facility] Comment on above: Performed By: #### 5 7021-8 #### [facility] CLIA [id number] [address] [place] [address] [place] Neutrophils/100 WBC (Bld) 64.9 % Normal [facility] Comment on above: Performed By: #### 5 7021-8 #### [facility] CLIA [id number] [address] [place] [address] [place] NRBCs 0.0 /100 WBC Normal 0 [facility] Comment on above: Performed By: #### 5 7021-8 #### [facility] CLIA [id number] [address] [place] [address] OF [place] Platelet mean volume (Bld) [Entitic vol] 9.0 fL Normal 9.0-12.7 [facility] Comment on above: Performed By: #### 5 7021-8 #### [facility] CLIA [id number] [address] [place] [address] [place] Platelets (Bld) [#/Vol] 271 10*3/uL Normal 150-400 [facility] Comment on above: Performed By: #### 5 7021-8 #### [facility] CLIA [id number] [address] [place] [address] [place] RBC (Bld) [#/Vol] 3.93 10*6/uL Normal 3.90-5.20 [facility] Comment on above: Performed By: #### 5 7021-8 #### [facility] CLIA [id number] [address] [place] [address] OF [facility] WBC (Bld) [#/Vol] 5.96 10*3/uL Normal 3.70-11.00 [facility] Comment on above: Performed By: #### 5 7021-8 #### [facility] CLIA [id number] [address] [place] [address] CONSULTon 12-25-2021 CONSULT HNO ID: [id number] Author: Tri Kowalski APRN.LOCKER ROOM SUPERVISOR Service: Wound/Ostomy Author Type: Nurse Practitioner Type: Consults Filed: 12/25/2021 11:37 AM Note Text: OSTOMY SERVICE CONSULT CAM MAKER SERVICE DATE: 12/25/2021 SERVICE TIME: 1015 Consultation [...] mL 20 mEq INTRAVENOUS PRN - HYDROmorphone PEEL OVEN TENDER 0.5 mg/mL in NaCl 0.9% 100 mL [...] discharge with h (more content not included)... [facility] NURSING PROGon 12-25-2021 NURSING PROG HNO ID: [id number] Author: Marilyn Henning RN Service: ? Author Type: Registered Nurse Type: Nursing Progress Note Filed: 12/25/2021 7:01 PM Note Text: Nursing Progress Note Patient Name: Mary Leal Patient Location: [place] [address]/JS1R-06 __ Daily Note: 0930 Pt AANDOx3. Lap sites intact. ABD tender. PEEL OVEN TENDER pump running. Stoma beefy red, dark brown liquid output. Pt stated that the eye pressure felt overnite has resolved. Call remains in place until OBGYN sees pt 12/26. Pt requesting PO pain medication. 1100 Pt up to chair. [address] Ontiveros bedside. 5mg oxy ordered q4 PRN. This note was completed by: Marilyn Henning [facility] NURSING PROG HNO ID: [id number] Author: Beto Ford RN Service: ? Author Type: Registered Nurse Type: Nursing Progress Note Filed: 12/25/2021 6:12 AM Note Text: Nursing Progress Note Patient Name: Mary Leal Patient Location: [place] [address]/YJ2M-85 __ Daily Note: Pt has been complaining [...] This note was completed by: Beto Ford [facility] ANES POSTPROC EVALon 022 ANES POSTPROC EVAL HNO ID: [id number] Author: Charisse Aggarwal MD Service: Anesthesiology Author [...] December 24, 2021 TIME: 4:17 PM CSN: [id number] [facility] ANES PRE-OPon 12-24-2021 ANES PRE-OP HNO ID: [id number] Author: Chayito Ojeda MD Service: Anesthesiology Author [...] December 24, 2021 TIME: 7:27 AM CSN: [id number] [facility] BRIEF OP NOTon 12-24-2021 BRIEF OP NOT HNO ID: [id number] Author: Jenifer Ayala MD Service: Colorectal Author Type: Fellow Type: Brief Op Note Filed: 12/24/2021 12:16 PM Note Text: BRIEF OPERATIVE NOTE - COLORECTAL SURGERY Log ID: [id number] Surgery/Procedure Date: 12/24/2021 Incision/Procedure Start Time: 8:50 AM Incision Close/Procedure End Time: Surgeon(s) and Veterinarian Poultry(s): Surgeon(s) and Role: Panel 1: * Mary [...] December 24, 2021 TIME: 12:10 PM Normal [facility] NURSING PROGon 12-24-2021 NURSING PROG HNO ID: [id number] Author: Marilyn Henning RN Service: ? Author Type: Registered Nurse Type: Nursing Progress Note Filed: 12/24/2021 6:36 PM Note Text: Nursing Progress Note Patient Name: Mary Leal Patient Location: [address] __ Daily Note: 1816 Pt arrived on floor with 100.2F temperature. Scheduled tylenol administered. Temperature 98.6 at 1816. Surgical incisions ELENI with glue, intact. Ostomy beefy red, producing sweat. Call remains in place. Pt Educated on PEEL OVEN TENDER pump usage. Daughter bedside. Bed low and locked. This note was completed by: Marilyn Henning [facility] NURSING PROG HNO ID: [id number] Author: Marilyn Henning RN Service: ? Author Type: Registered Nurse Type: Nursing Progress Note Filed: 12/24/2021 4:19 PM Note Text: Nursing Progress Note Patient Name: Mary Leal Patient Location: [place] [address] [address] __ Transfer Note: Patient transferred into room/unit PK3- in stable condition. Actions taken: No futher actions taken at this time. Will continue to monitor and check with patient. This note was completed by: [facility] NURSING PROG HNO ID: [id number] Author: Dianelys Lopez RN Service: Nursing Author Type: Registered Nurse Type: Nursing Progress Note Filed: 12/24/2021 6:30 AM Note Text: PATIENT EDUCATION TOPIC: PROCEDURE / SURGERY: Pre-op Teaching: Protocols PATIENT NAME: Mary Leal PAT[place]ATION: [place] TO LEARN COGNITIVE ABILITY: Alert and [...] (RECOMMENDATION): None Electronically Signed By: Dianelys Lopez [facility] OPERATIVE NOon 12-24-2021 OPERATIVE NO HNO ID: [id number] Author: Mary Obrien MD Service: Colorectal Author Type: Physician Type: Operative Report Filed: 12/24/2021 12:34 PM Note Text: COLON AND RECTAL SURGERY OPERATIVE REPORT PATIENT NAME: Mary Leal ADMISSION DATE: 12/24/2021 LOG ID: [id number] SURGERY/PROCEDURE DATE: 12/24/2021 INCISION/PROCEDURE START TIME: 8:50 AM INCISION CLOSE/PROCEDURE END TIME: AGE: [age] year old SEX: female SURGEON(S)/PROCEDURALI ST(S) AND GRADUATE ASSISTANT ATHLETIC TRAINER(S): Surgeon(s) and Role: Panel 1: * Mary [...] port site. This was ligated with a otswwr-de-infzv Vicryl suture and was confirmed to be [...] Mary Obrien, (more content not included)... Normal [facility] OPERATIVE NO HNO ID: [id number] Author: Pam aWng MD Service: Urogynecology Author Type: Physician Type: Operative Report Filed: 12/28/2021 10:03 AM Note Text: OPERATIVE/PROCEDURE REPORT LOG ID: [id number] SURGERY/PROCEDURE DATE: 12/24/2021 INCISION/PROCEDURE START TIME: 8:50 AM INCISION CLOSE/PROCEDURE END TIME: 1:50 PM SURGEON(S)/PROCEDURALI ST(S) AND GRADUATE ASSISTANT ATHLETIC TRAINER(S): Surgeon(s) and Role: Panel 1: * Mary [...] aspect of the (more content not included)... [facility] Type and SCR (30D)on 022 ABO/RH(D) Positive [facility] Comment on above: Performed By: #### T SCR30 ####[place] [id number] [address] Confirm Blood Typeon 021 ABO/RH(D) Positive [facility] Comment on above: Performed By: #### C ONABO ####[facility] [place] [phone] Type and SCR (30D)on ABO/RH(D) Positive [facility] Comment on above: Performed By: #### T SCR30 ####[facility] [place], [place] [id number] Nonvisit Note - PTon 021 Nonvisit Note - PT Chart reviewed with eval prepped for scheduled eval. [facility] Consenton 01-08-2021 Consent [id number]#1. 00CD:127 [facility] Coding Summary.on 01-06-2021 Coding Summary. CODING DATE: 01/06/2021 FINAL [facility] DS[facility] STATUS: Home (Routine DC) PAYOR: Medicaid [...] Eileen Scott Date Saved: 01/06/2021 09:01 am [facility] Consent for Procedure/Surger yon 01-04-2021 Consent for Procedure/Surgery [id number]#1. 00CD:127 [facility] Consent for Procedure/Surgery [id number]#1. 00CD:127 [facility] Consent for Treatmenton Consent for Treatment [id number] 0CD:127 [facility] Discharge Instructionson Discharge Instructions [id number]#1. 00CD:127 [facility] Inpatient Patient Summaryon 01-04-2021 Inpatient Patient Summary [place] [address] Clinical Summary Person Information Name: MARY LEAL Age: 50 Years : 1970 Sex: Female PCP: Isatu GÓMEZ DO Marital Status: Race: White Ethnicity: Non- or Language: Angolan Visit Id: Visit Reason: MIXED INCONTINENCE Speciality: Acuity: Enc Type: Outpatient Med Service: Surgery Arrival: 01/04/2021 12:31:00 Discharge: Dispo Type: Address: [address] [place] [phone] Provider Notes: Diagnosis: Problems Active Decreased bladder [...] This Visit Final Med List: acetaminophen-hydrocod one ([place] 5/325 Tab) By Mouth every 6 hours. [...] up: With: Address: When: Clifford OCONNOR [address], [address], [place] [phone] [facility] (1) Within 2 weeks Comments: Call for followup appointment. Have a great day! Patient Education Information: EU - Cystoscopy with Botox Injection Discharge Instructions (Custom) [facility] IntraOperative Documentson 0 01-04-2021 IntraOperative Documents [id number]#1. 00CD:127 Normal [facility] IntraOperative Documents [id number]#1. 00CD:127 Normal [facility] Main OR Intraoperative Recor don 01-04-2021 Main OR Intraoperative Record IntraOp Document Type FTURO Summary Primary Physician: Clifford OCONNOR MD Finalized Date/Time: 01/04/21 13:27:05 Pt. Name: ELVIS MARYMIGUE FeldmanO.B./Sex: 1970 Female Med Rec #: [id number] Physician: Clifford OCONNOR MD Financial #: [id number] Pt. Type: O Room/Bed: / Admit/Disch: 01/04/21 12:31:00 - Institution: Case Times FTURO Entry 1 Patient Times In Room 01/04/21 13:07:00 Out Room 01/04/21 13:27:00 Procedure Times Start 01/04/21 13:19:00 Stop 01/04/21 13:23:00 Anesthesia Times Last Modified By: Niecy Tran RN 01/04/21 13:27:01 Case Attendance FTURO Entry 1 Entry 2 Entry 3 Case Attendee Clifford OCONNOR MD CRUISE GUIDE, Akin Mejias CRUISE GUIDE, Debi Chand Role Performed Surgeon - Primary [...] Case Attendee Niecy Tran RN Role Performed Boiler Service Technician - Primary Time In 01/04/21 13:07:00 Time Out 01/04/21 13:27:00 Procedure CYSTOSCOPY LOCAL BOTOX INJECTION(.) Comments Last Modified By: Niecy Tran RN 01/04/21 13:27:02 Surgical Procedures FTURO Entry 1 Procedure Description Procedure CYSTOSCOPY LOCAL BOTOX Modifiers . INJECTION Surgeon Description CYSTOSCOPY BOTOX 50 UNITS LOT NUMBER [id number] EXP DATE 08/2023 Primary Procedure Yes Primary [...] RN 01/04/21 13:27 Normal [facility] Main OR Preoperative Recordo n 01-04-2021 Main OR Preoperative Record Holding Area Document Type FTURO Summary Primary Physician: Clifford OCONNOR MD Finalized Date/Time: 01/04/21 13:05:55 Pt. Name: MARY LEAL Zoya /Sex: 1970 Female Med Rec #: [id number] Physician: Clifford OCONNOR MD Financial #: [id number] Pt. Type: O Room/Bed: / Admit/Disch: 01/04/21 [...] RN 01/04/21 13:05 Normal [facility] Operative Reporton Operative Report Patient: MARY LEAL [...] two weeks. . Normal [facility] Comment on above: Result Comment: Elec tronically Signed By: Clifford OCONNOR MD\.br\Date and Time Signed: 01/04/21 13:30 EST Outpatient Surgery Discharge Instructionon 01-04-2021 Outpatient Surgery Discharge Instruction [address] [address] Patient Discharge Instructions PERSON INFORMATION [...] Follow up: With: Address: When: Clifford OCONNOR [address] [place] [address], [address], [place] [phone] [facility] (1) Within 2 weeks Comments: [...] serve you. Thank you for choosing [facility] Normal [facility] XR Shoulder - right 3 Viewso n 12-25-2020 IMPRESSION: NO SIGNIFICANT CHANGE Thermoscrew Operator: CAPRI Transcribe Date/Time: Dec 25 2020 12:18P Dictated by : AWA LOPEZ MD This examination was interpreted and the report reviewed and electronically signed by: AWA LOPEZ MD on Dec 25 2020 12:21PM [facility] DIVISION OF RADIOLOGY * * [...] significant abnormality. - DIVISION OF RADIOLOGY Provider, [facility] Veronica [facility] - 12/25/2020 * * *Final Report* [...] abnormality. - IMPRESSION IMPRESSION: NO SIGNIFICANT CHANGE Thermoscrew Operator: CAPRI Transcribe Date/Time: Dec 25 2020 12:18P Dictated by : AWA LOPEZ MD This examination was interpreted and the report reviewed and electronically signed by: AWA LOPEZ MD on Dec 25 2020 12:21PM EST [facility] Radiology Study observation (narrative) [facility] XR Shoulder - right 3 ViewsO rdered By: Ccf Provider on 12-25-2020 [facility] PT - Assessmentson PT - Assessments [id number]#1. 00CD:127 Normal [facility] Ambulatory Clinical Summaryo n 11-11-2020 Ambulatory Clinical Summary {[id number]-c 9-f1}CD:[id number] Normal [facility] Patient Educationon 11-11-19 21 Patient Education [...] content not included)... Normal [facility] Urology Phone Visit- [facility] 11-03-2020 Urology Phone Visit- Telehealth HPI [...] only communication with the patient located at [address] [place], [place] [phone] , with no one else. If it [...] Dawna Marmolejo MD [address] [place] [address]- [phone] Additional Instructions: Patient Education Urodynamic Testing Overactive [...] stream His (more content not included)... Normal [facility] Comment on above: Result Comment: Elec tronically Signed By: Dawna Marmolejo MD\.br\Date and Time Signed: 11/03/20 11:59 EST\.br\Electronically Co-Signed By: Christy Gill MA\.br\Date and Time Co-Signed: 10/21/20 12:01 EST Coding Summary.on 10-28-2020 Coding Summary. CODING DATE: 10/28/2020 FINAL [facility] STATUS: Home (Routine DC) PAYOR: Medicaid [...] Eileen Scott Date Saved: 10/28/2020 11:17 am [facility] Ambulatory Clinical Summaryo n 10-27-2020 Ambulatory Clinical Summary {[id number]- [id number]-pq-q5-q3-74-74-26-c 6-e5}CD:[id number] [facility] Consent for Procedure/Surger yon 10-27-2020 Consent for Procedure/Surgery [id number] .00CD:127 [facility] Consent for Treatmenton 10-07 Consent for Treatment [id number]#1.0 0CD:127 [facility] IntraOperative Documentson 1 12-28-2019 IntraOperative Documents [id number] .00CD:127 [facility] Patient Educationon 10-21-20 20 Patient Education [...] or depar (more content not included)... Normal [facility] XR Shoulder - right 3 Viewso n 09-29-2020 IMPRESSION: No acute osseous findings. Thermoscrew Operator: CAPRI Transcribe Date/Time: Sep 29 2020 8:37A Dictated by : FLORENCE TORRES MD This examination was interpreted and the report reviewed and electronically signed by: FLORENCE TORRES MD on Sep 29 2020 8:38AM [facility] DIVISION OF RADIOLOGY * * [...] other significant abnormality. DIVISION OF RADIOLOGY Provider, [facility] - 09/29/2020 * * *Final [...] abnormality. IMPRESSION IMPRESSION: No acute osseous findings. Thermoscrew Operator: CAPRI Transcribe Date/Time: Sep 29 2020 8:37A Dictated by : FLORENCE TORRES MD This examination was interpreted and the report reviewed and electronically signed by: FLORENCE TORRES MD on Sep 29 2020 8:38AM EST [facility] Radiology Study observation (narrative) [facility] XR Shoulder - right 3 ViewsO rdered By: Ccf Provider on 09-29-2020 [facility] PT - Assessmentson 0 PT - Assessments [id number]#1. 00CD:127 [facility] Nonvisit Note - PTon 020 Nonvisit Note - PT Per voicemail: she needs to cancel all of her PT due to personal reasons. KK [facility] Provider Letteron 09-09-2020 Provider Letter September 09, 2020 MARY LEAL [address] [place] [address] MARY LEAL 1970 Dear Mary Leal, You [...] appreciate your understanding. Sincerely, [facility] [address], [place] [address] [facility] PT - Assessmentson 0 PT - Assessments [id number]#1. 00CD:127 [facility] PT - Assessments [id number]#1. 00CD:127 [facility] PT - Assessmentson 0 PT - Assessments [id number]#1. 00CD:127 [facility] PT - Consentson 08-31-2020 PT - Consents [id number]#1. 00CD:127 [facility] Pre-Certification Formon Pre-Certification Form [id number]#1.0 0CD:127 [facility] Pre-Certification Form [id number]#1.0 0CD:127 [facility] Consent for Procedure/Surger yon 08-26-2020 Consent for Procedure/Surgery [id number]#1.0 0CD:127 [facility] Ambulatory Clinical Summaryo n 08-25-2020 Ambulatory Clinical Summary {[id number]- [id number]-84-ma-[id number]-39-50-e1-7 d-}CD:[id number] [facility] Patient Educationon 08-25-20 Patient Education [...] an extended amount of time. Only take jsip-any-urtajgz or prescription medicines for pain, discomfort, or [...] 01/14/2013 Document Reviewed: 09/07/2009 ExitCare? Patient Information ?2014 stylemarks. [facility] Urology Office/Clinic Noteon 08-25-2020 Urology [...] Mother and Father. Normal [facility] Comment on above: Result Comment: Elec tronically Signed By: Dawna Marmolejo MD\.br\Date and Time Signed: 08/25/20 10:06 EDT\.br\Electronically Co-Signed By: Mary Hager\.br\Date and Time Co-Signed: 08/25/20 09:51 EDT Coding Summary.on 08-21-2020 Coding Summary. CODING DATE: 08/21/2020 FINAL [facility] STATUS: PAYOR: Medicaid EA DESCRIPTION [id number] [...] Raymond CphT Date Saved: 08/21/2020 10:42 am [facility] Consenton 08-21-2020 Consent [id number]#1.0 0CD:127 [facility] Ambulatory Clinical Summaryo n 08-19-2020 Ambulatory Clinical Summary {[id number]-[id number] 23-09-09-46-0p-a0-d1-c 8-73}CD:[id number] [facility] Ambulatory Clinical Summary {[id number]-4f- 83-e1-69-76-84-23-b0-0 d-3c}CD:[id number] [facility] Nonvisit Note - PTon 020 Nonvisit Note - PT Chart reviewed for scheduled eval. KK [facility] Patient Educationon 08-19-20 20 Patient [...] content not included)... Normal [facility] Urology Phone Visit- [facility] 08-19-2020 Urology Phone Visit- Telehealth Chief [...] only communication with the patient located at [address] [place] [phone], with no one else. If it is [...] were discussed. Pt. acknowledges understanding. [place] [facility] [place] U[place] Procedure Order 2. Dysuria (R30.0: Dysuria) Moderate. Ordered[place] [facility] [place] U[place] Procedure Order 3. Feeling of incomplete bladder emptying (R39.14: Feeling of incomplete bladder emptying) Pt. does not feel that she is emptying. Ordered[place] [facility] [place] Urology Procedure Order 4. Weak urine stream (R39.12: Poor urinary stream) Weak stream w/ moderate hesitancy. Ordered[place] [facility] [place] [...] Will order Local anesthesia. ABX sent to [facility] in [place]. Ordered[place] [facility] [place] [...] content not included)... Normal [facility] Comment on above: Result Comment: Elec tronically Signed By: Francie BENSON, Dawna Feldman\.br\Date and Time Signed: 08/19/20 08:53 EDT\.br\Electronically Co-Signed By: Christy Gill MA\.br\Date and Time Co-Signed: 08/19/20 08:44 EDT Coding Summary.on 08-12-2020 Coding Summary. CODING DATE: 08/12/2020 FINAL [facility] STATUS: Home (Routine DC) PAYOR: Medicaid [...] Demi Fried Date Saved: 08/12/2020 09:42 am [facility] Formson 08-11-2020 Forms [id number] 0CD:127 [facility] C Urineon 08-09-2020 Bacteria identified [...] This test was performed at: [facility], [address] [place] [address], [facility] , , [facility] Comment on above: Performed By: #### [id number] ####[place] [address] [place] [address] Ambulatory Clinical Summaryo n 08-07-2020 Ambulatory Clinical Summary {[id number]- 35-00-[id number]-[id number]-8 4-a2}CD:[id number] [facility] Patient Educationon 08-07-20 20 Patient [...] Document Reviewed: 07/18/2013 ExitCare? Patient Information ?2013 [employer] [facility]. Family Medicine Overactive Bladder, Adult [...] content not included)... Normal [facility] Urology Office/Clinic Noteon 08-07-2020 Urology Office/Clinic [...] information and history for this patient [facility] There have been no associated [...] setting of nocturia q2hrs and daytime frequency m8hzshi with painful post void bladder sensation of [...] [address] (more content not included)... [facility] Comment on above: Result Comment: Elec tronically Signed By: Dawna Marmolejo MD\.br\Date and Time Signed: 08/07/20 15:54 EDT\.br\Electronically Co-Signed By: Radha Lopez MA\.br\Date and Time Co-Signed: 08/07/20 15:44 EDT Vital Signs Date Time Vital Sign Value Performing Clinician Facility 07-15-2025 08:57-0400 Body mass index (BMI) [Ratio] 29.01 kg/m2 Ingrid Bhat MD Work Phone: [facility] 07-15-2025 08:57-0400 Body weight 76.66 kg Ingrid Bhat MD Work Phone: [facility] 07-15-2025 08:57-0400 Diastolic blood pressure 90 mm[Hg] Ingrid Bhat MD Work Phone: [facility] 07-15-2025 08:57-0400 Heart rate 72 /min Ingrid Bhat MD Work Phone: [facility] 07-15-2025 08:57-0400 Systolic blood pressure 146 mm[Hg] Ingrid Bhat MD Work Phone: [facility] 06-24-2025 08:57-0400 Body height 162.6 cm Dipti Acevedo DO Work Phone: [facility] 06-24-2025 08:57-0400 Body mass index (BMI) [Ratio] 28.32 kg/m2 Dipti Acevedo DO Work Phone: [facility] 06-24-2025 08:57-0400 Body weight 74.84 kg Dipti Acevedo DO Work Phone: [facility] 06-24-2025 08:57-0400 Diastolic blood pressure 78 mm[Hg] Dipti Acevedo DO Work Phone: [facility] 06-24-2025 08:57-0400 Systolic blood pressure 126 mm[Hg] Dipti Acevedo DO Work Phone: [facility] 06-06-2025 14:19-0400 Body height 162.6 cm Nancy Swenson PA Work Phone: [facility] 06-06-2025 14:19-0400 Body mass index (BMI) [Ratio] 27.12 kg/m2 Nancy Swenson PA Work Phone: [facility] 06-06-2025 14:19-0400 Body temperature 98.2 [degF] Nancy Swenson PA Work Phone: [facility] 06-06-2025 14:19-0400 Body weight 71.67 kg Nancy Swenson PA Work Phone: [facility] 06-06-2025 14:19-0400 Diastolic blood pressure 64 mm[Hg] Nancy Swenson PA Work Phone: [facility] 06-06-2025 14:19-0400 Heart rate 79 /min Nancy Swenson PA Work Phone: [facility] 06-06-2025 14:19-0400 SaO2% (BldA) [Mass fraction] 96 % Nancy Swenson PA Work Phone: [facility] 06-06-2025 14:19-0400 Systolic blood pressure 120 mm[Hg] Nancy Swenson PA Work Phone: [facility] 06-06-2025 09:04-0400 Body height 162.6 cm Alberto Solis MD Work Phone: [facility] 06-06-2025 09:04-0400 Body mass index (BMI) [Ratio] 28.67 kg/m2 Alberto Solis MD Work Phone: [facility] 06-06-2025 09:04-0400 Body weight 75.75 kg Alberto Solis MD Work Phone: [facility] 06-06-2025 09:04-0400 Diastolic blood pressure 70 mm[Hg] Alberto Solis MD Work Phone: [facility] 06-06-2025 09:04-0400 Systolic blood pressure 117 mm[Hg] Alberto Solis MD Work Phone: [facility] 11-12-2024 08:27-0500 Body mass index (BMI) [Ratio] 26.61 kg/m2 Dipti Acevedo DO Work Phone: [facility] 11-12-2024 08:27-0500 Body weight 70.31 kg Dipti Acevedo DO Work Phone: [facility] 11-12-2024 08:27-0500 Diastolic blood pressure 84 mm[Hg] Dipti Acevedo DO Work Phone: [facility] 11-12-2024 08:27-0500 Systolic blood pressure 122 mm[Hg] Dipti Acevedo DO Work Phone: [facility] 10-24-2024 09:20-0500 Diastolic blood pressure 70 mm[Hg] Shannon Gómez DO Work Phone: [facility] 10-24-2024 09:20-0500 Heart rate 68 /min Shannon Gómez DO Work Phone: [facility] 10-24-2024 09:20-0500 Respiratory rate 16 /min Shannon Gómez DO Work Phone: [facility] 10-24-2024 09:20-0500 SaO2% (BldA) [Mass fraction] 100 % Shannon Gómez DO Work Phone: [facility] 10-24-2024 09:20-0500 Systolic blood pressure 109 mm[Hg] Shannon Gómez DO Work Phone: [facility] 10-24-2024 08:30-0500 Body temperature 98 [degF] Shannon Gómez DO Work Phone: [facility] 10-24-2024 08:03-0500 Inhaled oxygen flow rate 8 L/min Shannon Gómez DO Work Phone: [facility] 10-24-2024 06:36-0500 Body height 162.56 cm Shannon Gómez DO Work Phone: [facility] 10-24-2024 06:36-0500 Body weight 69.39 kg Shannon Gómez DO Work Phone: [facility] 10-23-2024 10:43-0500 Body height 162.6 cm Radha Cardenas MD Work Phone: [facility] 10-23-2024 10:43-0500 Body mass index (BMI) [Ratio] 26.26 kg/m2 Radha Cardenas MD Work Phone: [facility] 10-23-2024 10:43-0500 Body weight 69.4 kg Radha Cardenas MD Work Phone: [facility] 10-23-2024 10:43-0500 Diastolic blood pressure 80 mm[Hg] Radha Cardenas MD Work Phone: [facility] 10-23-2024 10:43-0500 Heart rate 68 /min Radha Cardenas MD Work Phone: [facility] 10-23-2024 10:43-0500 SaO2% (BldA) [Mass fraction] 98 % Radha Cardenas MD Work Phone: [facility] 10-23-2024 10:43-0500 Systolic blood pressure 112 mm[Hg] Radha Cardenas MD Work Phone: [facility] 10-15-2024 15:04-0500 Body mass index (BMI) [Ratio] 26.61 kg/m2 Dipti Clementer DO Work Phone: [facility] 10-15-2024 15:04-0500 Body weight 70.31 kg Dipti Acevedo DO Work Phone: [facility] 10-15-2024 15:04-0500 Diastolic blood pressure 68 mm[Hg] Dipti Acevedo DO Work Phone: [facility] 10-15-2024 15:04-0500 Systolic blood pressure 108 mm[Hg] Dipti Acevedo DO Work Phone: [facility] 10-14-2024 08:26-0500 Body height 162.56 cm G. Parish Gómez DO Work Phone: [facility] 10-14-2024 08:26-0500 Body mass index (BMI) [Ratio] 26.2 kg/m2 G. Parish Gómez DO Work Phone: [facility] 10-14-2024 08:26-0500 Body weight 69.39 kg G. Parish Gómez DO Work Phone: [facility] 09-26-2024 16:19-0500 Body height 162.6 cm Ron King SUPERVISOR BACK[employer]LLING Work Phone: [facility] 09-26-2024 16:19-0500 Body mass index (BMI) [Ratio] 26.64 kg/m2 Ron King [employer]PER[employer] Work Phone: [facility] 09-26-2024 16:19-0500 Body temperature 97.5 [degF] Ron King SUPERVISOR [employer] Work Phone: [facility] 09-26-2024 16:19-0500 Body weight 70.4 kg Ron King SUPERVISOR [employer]LL[employer] Work Phone: [facility] 09-26-2024 16:19-0500 Diastolic blood pressure 90 mm[Hg] Ron Luby SUPER[employer]OR [employer]LLING Work Phone: [facility] 09-26-2024 16:19-0500 Heart rate 85 /min Ron Benedicty SUPER[employer]OR [employer] Work Phone: [facility] 09-26-2024 16:19-0500 SaO2% (BldA) [Mass fraction] 99 % Ron Benedicty SUPER[employer]OR [employer]LL[employer] Work Phone: [facility] 09-26-2024 16:19-0500 Systolic blood pressure 142 mm[Hg] Ron Benedicty SUPER[employer]LL[employer] Work Phone: [facility] 09-16-2024 14:56-0500 Body height 162.56 cm [facility] 09-16-2024 14:56-0500 Body mass index (BMI) [Ratio] 25.5 kg/m2 [facility] 09-16-2024 14:56-0500 Body weight 67.58 kg [facility] 09-04-2024 14:30-0400 Body height 162.6 cm Ron Benedicty SUPERVISOR [employer]LLING Work Phone: [facility] 09-04-2024 14:30-0400 Body mass index (BMI) [Ratio] 25.58 kg/m2 Ron Benedicty SUPER[employer]OR [employer] Work Phone: [facility] 09-04-2024 14:30-0400 Body temperature 97.5 [degF] Ron Benedicty SUPERVISOR [employer]LLING Work Phone: [facility] 09-04-2024 14:30-0400 Body weight 67.59 kg Ron Benedicty SUPER[employer]OR [employer] Work Phone: [facility] 09-04-2024 14:30-0400 Diastolic blood pressure 76 mm[Hg] Ron Benedicty SUPERVISOR [employer]LLING Work Phone: [facility] 09-04-2024 14:30-0400 Heart rate 55 /min Ron Benedicty SUPERVISOR [employer]LLING Work Phone: [facility] 09-04-2024 14:30-0400 SaO2% (BldA) [Mass fraction] 99 % Ron Benedicty SUPERVISOR [employer]LLING Work Phone: [facility] 09-04-2024 14:30-0400 Systolic blood pressure 110 mm[Hg] Ron Fernando TRACY Work Phone: [facility] 08-07-2024 09:120400 Body height 162.6 cm Radha Cardenas MD Work Phone: [facility] 08-07-2024 09:12-0400 Body mass index (BMI) [Ratio] 26.43 kg/m2 Radha Cardenas MD Work Phone: [facility] 08-07-2024 09:12-0400 Body temperature 97.3 [degF] Radha Cardenas MD Work Phone: [facility] 08-07-2024 09:12-0400 Body weight 69.85 kg Radha Cardenas MD Work Phone: [facility] 08-07-2024 09:12-0400 Diastolic blood pressure 82 mm[Hg] Radha Cardenas MD Work Phone: [facility] 08-07-2024 09:12-0400 Heart rate 68 /min Radha Cardenas MD Work Phone: [facility] 08-07-2024 09:12-0400 SaO2% (BldA) [Mass fraction] 100 % Radha Cardenas MD Work Phone: [facility] 08-07-2024 09:12-0400 Systolic blood pressure 120 mm[Hg] Radha Cardenas MD Work Phone: [facility] 08-01-2024 15:22-0400 Body height 162.6 cm Eliceo Gómez DO Work Phone: [facility] 08-01-2024 15:22-0400 Body mass index (BMI) [Ratio] 25.73 kg/m2 Eliceo Gómez DO Work Phone: [facility] 08-01-2024 15:22-0400 Body temperature 96.8 [degF] Eliceo Kaftan DO Work Phone: [facility] 08-01-2024 15:22-0400 Body weight 68 kg Eliceo Gómez DO Work Phone: [facility] 08-01-2024 15:22-0400 Diastolic blood pressure 60 mm[Hg] Eliceo Gómez DO Work Phone: [facility] 08-01-2024 15:22-0400 Heart rate 98 /min Eliceo Gómez DO Work Phone: [facility] 08-01-2024 15:22-0400 SaO2% (BldA) [Mass fraction] 99 % Eliceo Gómez DO Work Phone: [facility] [facility] 08-01-2024 15:22-0400 Systolic blood pressure 122 mm[Hg] Eliceo Gómez DO Work Phone: [facility] 07-11-2024 09:44-0400 Body height 162.6 cm Eliceo Gómez DO Work Phone: [facility] 07-11-2024 09:44-0400 Body mass index (BMI) [Ratio] 26.09 kg/m2 Eliceo Gómez DO Work Phone: [facility] 07-11-2024 09:44-0400 Body temperature 97.11 [degF] Eliceo Gómez DO Work Phone: [facility] 07-11-2024 09:44-0400 Body weight 68.95 kg Eliceo Gómez DO Work Phone: [facility] 07-11-2024 09:44-0400 Diastolic blood pressure 64 mm[Hg] Eliceo Gómez DO Work Phone: [facility] 07-11-2024 09:44-0400 Heart rate 86 /min Eliceo Gómez DO Work Phone: [facility] 07-11-2024 09:44-0400 SaO2% (BldA) [Mass fraction] 97 % Eliceo Gómez DO Work Phone: [facility] 07-11-2024 09:44-0400 Systolic blood pressure 108 mm[Hg] Eliceo Gómez DO Work Phone: [facility] 04-12-2024 13:10-0400 Diastolic blood pressure 75 mm[Hg] Milagros Franco MD, PhD Work Phone: [facility] 04-12-2024 13:10-0400 Heart rate 62 /min Milagros Franco MD, PhD Work Phone: [facility] 04-12-2024 13:10-0400 Respiratory rate 20 /min Milagros Franco MD, PhD Work Phone: [facility] 04-12-2024 13:10-0400 SaO2% (BldA) [Mass fraction] 100 % Milagros Franco MD, PhD Work Phone: [facility] 04-12-2024 13:10-0400 Systolic blood pressure 121 mm[Hg] Milagros Franco MD, PhD Work Phone: [facility] 04-12-2024 11:35-0400 Body height 162.6 cm Milagros Franco MD, PhD Work Phone: [facility] 04-12-2024 11:35-0400 Body mass index (BMI) [Ratio] 25.75 kg/m2 Milagros Franco MD, PhD Work Phone: [facility] 04-12-2024 11:35-0400 Body temperature 97.9 [degF] Milagros Franco MD, PhD Work Phone: [facility] 04-12-2024 11:35-0400 Body weight 68.04 kg Milagros Franco MD, PhD Work Phone: [facility] 02-27-2024 09:48-0400 Body height 162.6 cm Flower Lopez APRN.CNP Work Phone: [facility] 02-27-2024 09:48-0400 Body mass index (BMI) [Ratio] 26.45 kg/m2 Flower Jessica CAM MAKER.LOCKER ROOM SUPERVISOR Work Phone: [facility] 02-27-2024 09:48-0400 Body weight 69.9 kg Flower Jessica CAM MAKER.LOCKER ROOM SUPERVISOR Work Phone: [facility] 02-27-2024 09:48-0400 Diastolic blood pressure 93 mm[Hg] Flower Jessica CAM MAKER.LOCKER ROOM SUPERVISOR Work Phone: [facility] 02-27-2024 09:48-0400 Heart rate 62 /min Flower Jessica CAM MAKER.LOCKER ROOM SUPERVISOR Work Phone: [facility] 02-27-2024 09:48-0400 Systolic blood pressure 146 mm[Hg] Flower Jessica CAM MAKER.LOCKER ROOM SUPERVISOR Work Phone: [facility] 01-25-2024 09:05-0400 Body height 162.6 cm [employer] Work Phone: [facility] 01-25-2024 09:05-0400 Body weight 68.04 kg [employer] Work Phone: [facility] 01-25-2024 09:05-0400 Heart rate 84 /min [employer] Work Phone: [facility] 01-25-2024 09:05-0400 Respiratory rate 16 /min [employer] Work Phone: [facility] 01-10-2024 12:40-0500 Body height 162.6 cm Cullen Dawkins MD Work Phone: [facility] 01-10-2024 12:40-0500 Body mass index (BMI) [Ratio] 27.89 kg/m2 Cullen Dawkins MD [facility] Phone[facility] 01-10-2024 12:40-0500 Body weight 73.7 kg Cullen Dawkins MD Work Phone[facility] 12-20-2023 12:21-0500 Body height 162.6 cm [facility] 12-20-2023 12:21-0500 Body mass index (BMI) [Ratio] 28.38 kg/m2 [facility] 12-20-2023 12:21-0500 Body temperature 98.2 [degF] [facility] 12-20-2023 12:21-0500 Body weight 75 kg [facility] 12-20-2023 12:21-0500 Diastolic blood pressure 90 mm[Hg] [facility] 12-20-2023 12:21-0500 Heart rate 72 /min [facility] 12-20-2023 12:21-0500 Respiratory rate 18 /min [facility] 12-20-2023 12:21-0500 SaO2% (BldA) [Mass fraction] 96 % [facility] 12-20-2023 12:21-0500 Systolic blood pressure 138 mm[Hg] [facility] 11-23-2023 08:14-0500 Body height 162.56 cm DO Shannon Gómez Work Phone: [facility] 11-23-2023 08:14-0500 Body weight 70.3 kg DO Shannon Gómez Work Phone: [facility] 08-12-2023 07:08-0400 Diastolic blood pressure 65 mm[Hg] Lex Salmon MD Work Phone: [facility] 08-12-2023 07:08-0400 Heart rate 77 /min Lex Salmon MD Work Phone: [facility] 08-12-2023 07:08-0400 SaO2% (BldA) [Mass fraction] 98 % Lex Salmon MD Work Phone: [facility] 08-12-2023 07:08-0400 Systolic blood pressure 132 mm[Hg] Lex Salmon MD Work Phone: [facility] 08-12-2023 06:48-0400 Respiratory rate 13 /min Lex Salmon MD Work Phone: [facility] 08-12-2023 00:25-0400 Body height 162.6 cm Lex Salmon MD Work Phone: [facility] 08-12-2023 00:25-0400 Body mass index (BMI) [Ratio] 28.01 kg/m2 Lex Salmon MD Work Phone: [facility] 08-12-2023 00:25-0400 Body temperature 97.59 [degF] Lex Salmon MD Work Phone: [facility] 08-12-2023 00:25-0400 Body weight 74.03 kg Lex Salmon MD Work Phone: [facility] 07-31-2023 14:27-0400 Body height 162.6 cm Nelsy Chávez CAM MAKER.LOCKER ROOM SUPERVISOR Work Phone: [facility] 07-31-2023 14:27-0400 Body weight 69.85 kg Nelsy Chávez CAM MAKER.LOCKER ROOM SUPERVISOR Work Phone: [facility] 07-31-2023 14:27-0400 Diastolic blood pressure 96 mm[Hg] Nelsy Chávez CAM MAKER.LOCKER ROOM SUPERVISOR Work Phone: [facility] 07-31-2023 14:27-0400 Heart rate 76 /min Nelsy Chávez CAM MAKER.LOCKER ROOM SUPERVISOR Work Phone: [facility] 07-31-2023 14:27-0400 Systolic blood pressure 136 mm[Hg] Nelsy Chávez CAM MAKER.LOCKER ROOM SUPERVISOR Work Phone: [facility] 06-13-2023 10:37-0400 Body height 162.56 cm Eliceo Gómez Work Phone: [facility] DO Work Phone: 06-13-2023 10:37-0400 Body mass index (BMI) [Ratio] 27.46 kg/m2 Eliceo Gómez Work Phone: [facility] DO Work Phone: 06-13-2023 10:37-0400 Body surface area Derived from formula 1.78 m2 Eliceo Gómez Work Phone: [facility] DO Work Phone: 06-13-2023 10:37-0400 Body weight 72.58 kg Eliceo Gómez Work Phone: [facility] DO Work Phone: 06-13-2023 10:37-0400 Diastolic blood pressure 70 mm[Hg] Eliceo Asiya Gómez Work Phone: [facility] DO Work Phone: 06-13-2023 10:37-0400 Heart rate 70 /min Eliceo Gómez Work Phone: [facility] DO Work Phone: 06-13-2023 10:37-0400 Systolic blood pressure 100 mm[Hg] Eliceo Gómez Work Phone: [facility] DO Work Phone: 06-13-2023 10:37-0400 11 1 Eliceo Gómez Work Phone: [facility] DO Work Phone: Comment on above: PHQ-9 TS 06-05-2023 13:23-0400 Diastolic blood pressure 68 mm[Hg] DO Shannon Gómez Work Phone: [facility] 06-05-2023 13:23-0400 Heart rate 72 /min DO Shannon Gómez Work Phone: [facility] 06-05-2023 13:23-0400 Respiratory rate 18 /min DO Shannon Gómez Work Phone: [facility] 06-05-2023 13:23-0400 SaO2% (BldA) [Mass fraction] 97 % DO Shannon Gómez Work Phone: [facility] 06-05-2023 13:23-0400 Systolic blood pressure 129 mm[Hg] DO Shannon Gómez Work Phone: [facility] 06-05-2023 09:32-0400 Body height 162.56 cm DO Shannon Gómez Work Phone: [facility] 06-05-2023 09:32-0400 Body weight 73.9 kg DO Shannon Gómez Work Phone: [facility] 06-05-2023 09:31-0400 Body temperature 97.5 [degF] DO Shannon Gómez Work Phone: [facility] 01-16-2023 13:18-0400 Body height 162.6 cm [facility] 01-16-2023 13:18-0400 Body weight 68.04 kg [facility] 11-21-2022 08:00-0500 Body height 162.6 cm [facility] Work Phone: [facility] 11-21-2022 08:00-0500 Body weight 64.86 kg [facility] Work Phone: [facility] 10-11-2022 10:08-0500 Body height 162.6 cm Isra Masters DO Work Phone: [facility] 10-11-2022 10:08-0500 Body weight 78.02 kg Isra Masters DO Work Phone: [facility] 10-11-2022 10:08-0500 Diastolic blood pressure 97 mm[Hg] Isra Masters DO Work Phone: [facility] 10-11-2022 10:08-0500 Heart rate 89 /min Isra Masters DO Work Phone: [facility] 10-11-2022 10:08-0500 Systolic blood pressure 141 mm[Hg] Isra Masters DO Work Phone: [facility] 10-10-2022 14:30-0500 Body height 162.56 cm Beto Olexa Other [employer] Other 10-10-2022 14:30-0500 Body mass index (BMI) [Ratio] 28.66 kg/m2 Beto Olexa Other [employer] Other 10-10-2022 14:30-0500 Body weight 75.75 kg Beto Olexa Other [employer] Other 07-26-2022 11:13-0400 Body height 162.6 cm Mary Obrien MD Work Phone: [facility] 07-26-2022 11:13-0400 Body temperature 97.5 [degF] Mary Obrien MD Work Phone: [facility] 07-26-2022 11:13-0400 Body weight 77.56 kg Mary Obrien MD Work Phone: [facility] 07-26-2022 11:13-0400 Diastolic blood pressure 83 mm[Hg] Mary Obrien MD Work Phone: [facility] 07-26-2022 11:13-0400 Heart rate 95 /min Mary Obrien MD Work Phone: [facility] 07-26-2022 11:13-0400 SaO2% (BldA) [Mass fraction] 97 % Mary Obrien MD Work Phone: [facility] 07-26-2022 11:13-0400 Systolic blood pressure 110 mm[Hg] Mary Obrien MD Work Phone: [facility] 05-26-2022 11:45-0400 Body height 162.56 cm Beto Snyder Other [employer] Other 05-26-2022 11:45-0400 Body mass index (BMI) [Ratio] 29.18 kg/m2 Beto Snyder Other [employer] Other 05-26-2022 11:45-0400 Body weight 77.11 kg Beto Snyder Other [employer] Other 05-12-2022 09:06-0400 Diastolic blood pressure 80 mm[Hg] Eliceo Gómez Work Phone: [facility] [facility] DO Work Phone: 05-12-2022 09:06-0400 Systolic blood pressure 126 mm[Hg] Eliceo Gómez Work Phone: [facility] 250 DO Work Phone: 05-12-2022 08:57-0400 Body height 162.56 cm Eliceo Gómez Work Phone: [facility] 250 DO Work Phone: 05-12-2022 08:57-0400 Body mass index (BMI) [Ratio] 29.87 kg/m2 Eliceo Gómez Work Phone: [facility] 250 DO Work Phone: 05-12-2022 08:57-0400 Body surface area Derived from formula 1.84 m2 Eliceo Asiya Dalia Work Phone: [facility] 250 DO Work Phone: 05-12-2022 08:57-0400 Body weight 78.93 kg Eliceo Gómez Work Phone: [facility] DO Work Phone: 05-12-2022 08:57-0400 Diastolic blood pressure 80 mm[Hg] Eliceo Gómez Work Phone: [facility] 250 DO Work Phone: 05-12-2022 08:57-0400 Heart rate 68 /min Eliceo Gómez Work Phone: [facility] 250 DO Work Phone: 05-12-2022 08:57-0400 Systolic blood pressure 130 mm[Hg] Eliceo Gómez Work Phone: [facility] [address] DO Work Phone: 05-10-2022 12:30-0400 Body height 162.56 cm Allison Lutzault Other [employer] Other 05-10-2022 12:30-0400 Body mass index (BMI) [Ratio] 29.18 kg/m2 Allison Lyla Other [employer] Other 05-10-2022 12:30-0400 Body temperature 97.3 [degF] Allison Lutzault Other [employer] Other 05-10-2022 12:30-0400 Body weight 77.11 kg Allison Arita Other [employer] Other 05-10-2022 12:30-0400 Respiratory rate 18 /min Allison Lutzault Other [employer] Other 05-10-2022 12:30-0400 SaO2% (BldA) [Mass fraction] 98 % Allison Lutzault Other [employer] Other 04-22-2022 12:04-0400 Body height 162.6 cm Jessi Sheets APRN.LOCKER ROOM SUPERVISOR Work Phone: [facility] 04-22-2022 12:04-0400 Body weight 77.56 kg Jessi Sheets APRN.LOCKER ROOM SUPERVISOR Work Phone: [facility] 04-22-2022 12:04-0400 Diastolic blood pressure 68 mm[Hg] Jessi Sheets APRN.LOCKER ROOM SUPERVISOR Work Phone: [facility] 04-22-2022 12:04-0400 Heart rate 76 /min Jessi Sheets APRN.LOCKER ROOM SUPERVISOR Work Phone: [facility] 04-22-2022 12:04-0400 SaO2% (BldA) [Mass fraction] 98 % Jessi Sheets CAM MAKER.LOCKER ROOM SUPERVISOR Work Phone: [facility] 04-22-2022 12:04-0400 Systolic blood pressure 104 mm[Hg] Jessi Sheets CAM MAKER.LOCKER ROOM SUPERVISOR Work Phone: [facility] 03-15-2022 16:30-0400 Body height 162.56 cm Beto Snyder Other [employer] Other 03-15-2022 16:30-0400 Body mass index (BMI) [Ratio] 30.55 kg/m2 Beto Snyder Other [employer] Other 03-15-2022 16:30-0400 Body weight 80.74 kg Beto Snyder Other [employer] Other 03-15-2022 08:36-0400 Body height 162.6 cm Isra Guerrero DO Work Phone: [facility] 03-15-2022 08:36-0400 Body weight 83.01 kg Isra Masters DO Work Phone: [facility] 03-15-2022 08:36-0400 Diastolic blood pressure 87 mm[Hg] Isra Masters DO Work Phone: [facility] 03-15-2022 08:36-0400 Heart rate 85 /min Isra Masters DO Work Phone: [facility] 03-15-2022 08:36-0400 SaO2% (BldA) [Mass fraction] 100 % Isra Masters DO Work Phone: [facility] 03-15-2022 08:36-0400 Systolic blood pressure 133 mm[Hg] Isra Masters DO Work Phone: [facility] 03-14-2022 10:23-0400 Body height 162.6 cm [employer] 4 Work Phone: [facility] 03-14-2022 10:23-0400 Body temperature 97.2 [degF] [employer] Work Phone: [facility] 03-14-2022 10:23-0400 Body weight 83.01 kg [employer] 4 Work Phone: [facility] 03-14-2022 10:23-0400 Diastolic blood pressure 76 mm[Hg] [employer] 4 Work Phone: [facility] 03-14-2022 10:23-0400 Heart rate 74 /min [employer] 4 Work Phone: [facility] 03-14-2022 10:23-0400 Respiratory rate 16 /min [employer] 4 Work Phone: [facility] 03-14-2022 10:23-0400 SaO2% (BldA) [Mass fraction] 98 % [employer] 4 Work Phone: [facility] 03-14-2022 10:23-0400 Systolic blood pressure 114 mm[Hg] [employer]acc 4 Work Phone: [facility] 02-18-2022 09:43-0400 Body height 162.6 cm Nelsy Chávez APRN.LOCKER ROOM SUPERVISOR Work Phone: [facility] 02-18-2022 09:43-0400 Body weight 80.29 kg Nelsy Chávez APRN.LOCKER ROOM SUPERVISOR Work Phone: [facility] 02-18-2022 09:43-0400 Diastolic blood pressure 70 mm[Hg] Nelsy Chávez APRN.LOCKER ROOM SUPERVISOR Work Phone: [facility] 02-18-2022 09:43-0400 Systolic blood pressure 110 mm[Hg] Nelsy Chávez APRN.LOCKER ROOM SUPERVISOR Work Phone: [facility] 02-08-2022 14:52-0400 Body height 162.6 cm Mary Obrien MD Work Phone: [facility] 02-08-2022 14:52-0400 Body weight 83.01 kg Mary Obrien MD Work Phone: [facility] 02-08-2022 14:52-0400 Diastolic blood pressure 76 mm[Hg] Mary Obrien MD Work Phone: [facility] 02-08-2022 14:52-0400 Heart rate 79 /min Mary Obrien MD Work Phone: [facility] 02-08-2022 14:52-0400 SaO2% (BldA) [Mass fraction] 97 % Mary Obrien MD Work Phone: [facility] 02-08-2022 14:52-0400 Systolic blood pressure 113 mm[Hg] Mary Obrien MD Work Phone: [facility] 02-08-2022 11:19-0400 Body weight 83.01 kg Magali Mitchell CAM MAKER.LOCKER ROOM SUPERVISOR Work Phone: [facility] 02-08-2022 11:19-0400 Diastolic blood pressure 76 mm[Hg] Magali Mitchell CAM MAKER.LOCKER ROOM SUPERVISOR Work Phone: [facility] 02-08-2022 11:19-0400 Heart rate 74 /min Magali Mitchell CAM MAKER.LOCKER ROOM SUPERVISOR Work Phone: [facility] 02-08-2022 11:19-0400 Systolic blood pressure 113 mm[Hg] Magali Mitchell CAM MAKER.LOCKER ROOM SUPERVISOR Work Phone: [facility] 10-20-2021 09:45-0500 Body height 162.56 cm Beto Snyder Other [employer] Other 10-20-2021 09:45-0500 Body mass index (BMI) [Ratio] 31.41 kg/m2 Beto Sndyer Other [employer] Other 10-20-2021 09:45-0500 Body weight 83.01 kg Beto Snyder Other [employer] Other 08-19-2021 17:10-0400 Body height 162.56 cm Erica Kingston Other [employer] Other 08-19-2021 17:10-0400 Body mass index (BMI) [Ratio] 31.24 kg/m2 Erica Kingston Other [employer] Other 08-19-2021 17:10-0400 Body temperature 97.3 [degF] Erica Kingston Other [employer] Other 08-19-2021 17:10-0400 Body weight 82.56 kg Erica Kingston Other [employer] Other 08-19-2021 17:10-0400 Diastolic blood pressure 82 mm[Hg] Erica Kingston Other [employer] Other 08-19-2021 17:10-0400 Respiratory rate 18 /min Erica Kingston Other [employer] Other 08-19-2021 17:10-0400 SaO2% (BldA) [Mass fraction] 98 % Erica Kingston Other [employer] Other 08-19-2021 17:10-0400 Systolic blood pressure 126 mm[Hg] Erica Vashti Other [employer] Other 08-13-2021 10:15-0400 Body height 162.56 cm Tita Daugherty Other [employer] Other 08-13-2021 10:15-0400 Body mass index (BMI) [Ratio] 30.89 kg/m2 Tita Ginty Other [employer] Other 08-13-2021 10:15-0400 Body temperature 6 [degF] Tita Ginty Other [employer] Other 08-13-2021 10:15-0400 Body weight 81.65 kg Tita Ginty Other [employer] Other 08-13-2021 10:15-0400 SaO2% (BldA) [Mass fraction] 99 % Tita Ginty Other [employer] Other 07-28-2021 09:30-0400 Body height 162.56 cm Beto Snyder Other [employer] Other 07-28-2021 09:30-0400 Body mass index (BMI) [Ratio] 30.89 kg/m2 Beto Snyder Other [employer] Other 07-28-2021 09:30-0400 Body weight 81.65 kg Beto Snyder Other [employer] Other Encounters Encounter Date Encounter Type Care Provider Facility Start: 07-16-2025 ambulatory INGRID [facility] Start: 07-15-2025 End: 07-15-2025 Office outpatient new 60 minutes Ingrid Bhat MD Work Phone: [facility] of [facility] Comment on above: Neuropathy (Primary Dx); B12 deficiency; Hyperreflexia Start: 07-15-2025 End: 07-15-2025 ambulatory INGRID BHAT [facility] Start: 07-11-2025 End: 07-11-2025 ambulatory DIPTI ACEVEDO Not Available Start: 07-09-2025 End: 07-09-2025 Office outpatient visit 15 minutes Chantale Sweet CECILIA Work Phone: [facility] Comment on above: Rash and other nonsp ecific skin eruption (Primary Dx); Neoplasm of unspecified behavior of bone, soft tissue, and skin Start: 07-09-2025 End: 07-09-2025 ambulatory CHANTALE SWEET Not Available Start: 07-09-2025 End: 07-09-2025 Bamboo flowsheet Chantale Sweet PA Work Phone: [facility] Start: 07-09-2025 End: 07-09-2025 Bamboo flowsheet Chantale Sweet PA Work Phone: [facility] Start: 07-03-2025 End: 07-09-2025 Follow-up encounter Alberto Solis MD Work Phone: [facility] Comment on above: Surgical Pathology Start: 07-01-2025 End: 07-01-2025 Patient encounter procedure Monica Burns SUPERVISOR BACKFILLING-C -[facility] [address] Closed Work Phone: Start: 07-01-2025 End: 07-01-2025 ambulatory Shannon Gómez DO Work Phone: [facility] Work Phone: Start: 06-27-2025 End: 06-27-2025 Evaluation and management of inpatient ALBERTO SOLIS [facility] Start: 06-25-2025 End: 06-25-2025 Clinisync Result Encounter Generic External Data Provider [facility] External Department Unsolicited Start: 06-25-2025 End: 06-25-2025 Clinisync Result Encounter Generic External Data Provider [facility] External Department Unsolicited Start: 06-24-2025 End: 06-24-2025 Patient encounter status Dipti Acevedo DO Work Phone: [facility] Start: 06-24-2025 End: 06-24-2025 Periodic preventive med est patient 40-64yrs Dipti Acevedo DO [facility] Comment on above: Encounter for gyneco logical examination without abnormal finding; Encounter for Papanicolaou smear of vagina; Breast cancer screening by mammogram; Hormone replacement therapy; Chronic vulvitis; Night sweats; Dyspareunia in female; Erythema Start: 06-24-2025 End: 06-24-2025 ambulatory DIPTI ACEVEDO Not Available Start: 06-06-2025 End: 06-06-2025 Office outpatient visit 15 minutes Nancy Swenson PA Work Phone: [facility] [phone] Comment on above: Mild persistent asth ma with acute exacerbation (HCC) (Primary Dx) Start: 06-06-2025 End: 06-06-2025 ambulatory NANCY SWENSON Not Available Start: 06-06-2025 End: 06-06-2025 Office outpatient new 45 minutes Vicki Roche DO Work Phone: [facility] Comment on above: Gastroparesis (Prima ry Dx); Esophageal dysphagia; Gastroesophageal reflux disease with esophagitis without hemorrhage; Diarrhea, unspecified type; Flatulence Start: 06-06-2025 End: 06-06-2025 ambulatory ALBERTO SOLIS [facility] Start: 06-04-2025 End: 06-05-2025 Telephone encounter Joanna Piper [facility] Comment on above: Results Start: 05-19-2025 End: 05-19-2025 ambulatory Ace Ahumada MD Facility:[facility] Start: 05-14-2025 ambulatory [facility] Start: 05-13-2025 ambulatory [facility] Start: 05-05-2025 End: 05-05-2025 ambulatory Ace Ahumada MD Facility:[facility] Start: 04-30-2025 End: 04-30-2025 ambulatory Shannon Gómez DO Work Phone: [facility] Work Phone: Start: 04-30-2025 End: 04-30-2025 Patient encounter procedure Salma Cavazos DO -[facility] [place] Work Phone: Start: 04-21-2025 End: 04-21-2025 Refill Pauline Christensen MD Work Phone: [facility] Comment on above: Other migraine witho ut status migrainosus, not intractable Start: 04-14-2025 End: 04-14-2025 ambulatory Ace Ahumada MD Facility:[facility] Start: 03-17-2025 End: 03-17-2025 ambulatory Ace Ahumada MD Facility[facility] Start: 02-25-2025 End: 02-25-2025 Patient encounter procedure IsatuReno Parish Gómez DO Work Phone: [facility] [address] Closed Work Phone: Start: 02-25-2025 End: 02-25-2025 ambulatory Shannon Parish Gómez DO Work Phone: [facility] Work Phone: Start: 02-24-2025 End: 03-10-2025 Telephone encounter Dipti Acevedo DO Work Phone: [facility] Start: 02-17-2025 End: 02-17-2025 Patient encounter procedure Shannon Parish Gómez DO Work Phone: [facility] [address] Work Phone: Start: 02-17-2025 End: 02-17-2025 ambulatory Shannon Parish Gómez DO Work Phone: [facility] Work Phone: Start: 01-25-2025 End: 01-25-2025 Orders Only Pauline Christensen MD Work Phone: [facility] Start: 01-20-2025 End: 01-20-2025 Bamboo flowsheet Eliceo Gómez DO Work Phone: [facility] [id number] Start: 01-20-2025 End: 01-20-2025 Bamboo flowsheet Eliceo Gómez DO Work Phone: [facility] Start: 01-20-2025 End: 01-20-2025 ambulatory NANCY Cavazos LEELA Not Available Start: 01-03-2025 End: 01-03-2025 Clinisync Result Encounter Generic External Data Provider [facility] External Department Unsolicited Start: 01-03-2025 End: 01-03-2025 Clinisync Result Encounter Generic External Data Provider [facility] External Department Unsolicited Start: 12-16-2024 End: 12-16-2024 Patient encounter procedure Shannon Szymanskijerometomasa DO Work Phone: [facility] [address] Work Phone: Start: 12-16-2024 End: 12-16-2024 ambulatory Shannon Szymanskileigha DO Work Phone: [facility] Work Phone: Start: 12-11-2024 End: 12-11-[address] [place] [address] Start: 12-10-2024 End: 12-11-2024 Refill Demi Machado [facility] Comment on above: Other migraine witho ut status migrainosus, not intractable Start: 11-26-2024 End: 11-26-2024 Refill Eliceo Gómez DO Work Phone: [facility] Comment on above: Restless legs syndro me Start: 11-20-2024 End: 11-20-2024 ambulatory Shannon Szymanskileigha DO Work Phone: [facility] Work Phone: Start: 11-20-2024 End: 11-20-2024 Patient encounter procedure Shannon Szymanskileigha DO Work Phone: [facility] Work Phone: Start: 11-19-2024 End: 11-19-2024 Bamboo flowsheet Nelsy Snyder CAM MAKER-LOCKER ROOM SUPERVISOR Work Phone: [facility] Start: 11-19-2024 End: 11-19-2024 Bamboo flowsheet Nelsy Snyder CAM MAKER-LOCKER ROOM SUPERVISOR Work Phone: [facility] Start: 11-19-2024 End: 11-19-2024 Office outpatient visit 15 minutes Nelsy Snyder CAM MAKER-LOCKER ROOM SUPERVISOR Work Phone: [facility] Comment on above: Seborrheic keratosis ; Lentigines; Capillary angioma Start: 11-19-2024 End: 11-19-2024 ambulatory NELSY SNYDER Not Available Start: 11-14-2024 End: 11-14-2024 Patient encounter procedure Shannon Gómez DO Work Phone: [facility] Work Phone: Start: 11-14-2024 End: 11-14-2024 ambulatory Shannon Gómez DO Work Phone: [facility] Work Phone: Start: 11-12-2024 End: 11-12-2024 Postop follow up visit related to original px Dipti Acevedo DO Work Phone: [facility] Comment on above: Aftercare following surgery Start: 11-12-2024 End: 11-12-2024 ambulatory DIPTI ACEVEDO Not Available Start: 11-11-2024 End: 11-11-2024 ambulatory Ace Ahumada MD Facility:[facility] Start: 11-04-2024 End: 12-28-2024 ambulatory Shannon GÓMEZ Facility:[facility] Start: 10-28-2024 End: 10-28-2024 Postop follow up visit related to original px Dipti Acevedo DO Work Phone: [facility] Comment on above: Aftercare following surgery Start: 10-28-2024 End: 10-28-2024 ambulatory DIPTI ACEVEDO Not Available Start: 10-28-2024 ambulatory [facility] Start: 10-24-2024 End: 10-24-2024 Admission to same day surgery center Shannon Parish Gómez DO Work Phone: [facility] [place] Start: 10-24-2024 End: 10-24-2024 ambulatory Dipti Acevedo Facility:[facility] Start: 10-23-2024 End: 10-23-2024 Office outpatient visit 40 minutes Radha Cardenas MD Work Phone: Gastroenterology and Hepatology [facility] Comment on above: Chronic diarrhea (Pr imary Dx); Chronic abdominal pain; Bloating; Inadequate oral intake; [place] grade D esophagitis; Gastroparesis Start: 10-23-2024 ambulatory Shannon GÓMEZ Facili ty:[facility] Start: 10-15-2024 End: 10-15-2024 Office outpatient visit 25 minutes Dipti Acevedo DO Work Phone: [facility] Comment on above: PCB (post coital ble eding); Granulation tissue; Hymen abnormality Start: 10-15-2024 End: 10-15-2024 ambulatory DIPTI ACEVEDO Not Available Start: 10-14-2024 End: 10-14-2024 Patient encounter procedure Shannon Gómez DO Work Phone: [facility] Work Phone: Start: 10-10-2024 End: 10-10-2024 Patient encounter procedure Shannon Gómez DO Work Phone: [facility]-MRI [address] Closed Work Phone: Start: 10-10-2024 End: 10-10-2024 ambulatory Anibal N [place]ial[place]i Facility:[facility] Start: 10-09-2024 End: 10-09-2024 ambulatory Anibal N [place] Facility:[facility] Start: 10-09-2024 Non-patient / Non-visit Shannon Gómez DO Work Phone: [facility] Work Phone: Start: 09-27-2024 End: 09-27-2024 Office outpatient visit 15 minutes Dipti Acevedo DO Work Phone: [facility] Comment on above: PCB (post coital ble eding) (Primary Dx); Granulation tissue Start: 09-27-2024 End: 09-27-2024 ambulatory DIPTI ACEVEDO Not Available Start: 09-26-2024 End: 09-26-2024 Office outpatient visit 15 minutes Ron King SUPERVISOR BACKFILLING Work Phone: [facility] 230 Comment on above: Degenerative disc di sease, cervical (Primary Dx) Start: 09-26-2024 End: 09-27-2024 ambulatory RON KING Not Available Start: 09-24-2024 End: 09-24-2024 Office outpatient visit 15 minutes Dipti Acevedo DO Work Phone: [facility] Comment on above: Granulation tissue; Hymen abnormality Start: 09-24-2024 End: 09-24-2024 ambulatory DIPTI ACEVEDO Not Available Start: 09-16-2024 End: 09-16-2024 ambulatory [facility] Work Phone: Start: 09-16-2024 End: 09-16-[address] [facility] Work Phone: Start: 09-04-2024 End: 09-04-2024 Office outpatient visit 15 minutes Ron King SUPERVISOR BACKFILLING Work Phone: [facility] [id number] Comment on above: Anxiety (Primary Dx) Urinary frequency; Urinary urgency; Burning with urination; Erythema; Chronic vulvitis; Night sweats Start: 09-04-2024 End: 09-04-2024 ambulatory RON KING Not Available Start: 08-27-2024 End: 08-27-2024 ambulatory ELICEO GÓMEZ Not Available Start: 08-26-2024 ambulatory PADMAJA LLAMAS Facility:[facility] Start: 08-07-2024 End: 08-07-2024 Office outpatient visit 40 minutes Radha Cardenas MD Work Phone: Gastroenterology and Hepatology [facility] Comment on above: Chronic abdominal pa in (Primary Dx); Avoidant-restrictive food intake disorder (ARFID); Bloating; Gastroparesis Start: 08-07-2024 ambulatory NA LI Facility:[facility] Start: 08-05-2024 End: 08-05-2024 ambulatory Ace Ahumada MD Facility:[facility] Start: 08-01-2024 End: 08-01-2024 Office outpatient visit 15 minutes Eliceo Gómez DO Work Phone: [facility] 230 Comment on above: Oral candidiasis (Pr imary Dx); Tongue pain Start: 08-01-2024 End: 08-01-2024 ambulatory ELICEO GÓMEZ Not Available Start: 07-26-2024 End: 07-26-2024 ambulatory [facility] Start: 07-22-2024 End: 07-22-2024 ambulatory Ace Ahumada MD Facility:[facility] Start: 07-11-2024 End: 07-11-2024 Bamboo flowsheet Eliceo Gómez DO Work Phone: [facility] 230 Start: 07-11-2024 End: 07-11-2024 Bamboo flowsheet Eliceo Gómez DO Work Phone: [facility] 230 Start: 07-11-2024 End: 07-11-2024 Office outpatient visit 15 minutes Eliceo Gómez DO Work Phone: [facility] 230 Comment on above: Soft tissue mass (Pr imary Dx); Gastro-esophageal reflux disease without esophagitis; Gastroparesis; Mild intermittent asthma, unspecified whether complicated ([facility] Start: 07-01-2024 End: 07-01-2024 ambulatory Ace Ahumada MD Facility:[facility] Start: 06-27-2024 End: 06-27-2024 Bamboo flowsheet Kathie Amezquita DPM Work Phone: [facility] Start: 06-27-2024 End: 06-27-2024 Bamboo flowsheet Kathie Amezquita DPM Work Phone: [facility] Start: 06-27-2024 End: 06-27-2024 Patient encounter procedure Kathie Amezquita DPM Work Phone: [facility] Comment on above: Peroneal tendinitis of right lower extremity (Primary Dx); Bilateral foot pain; Exostosis of bone of foot Start: 06-17-2024 End: 06-17-2024 ambulatory Ace Ahumada MD Facility:[facility] Start: 06-12-2024 Refill Isra S Clin adele DO Work Phone: Gastroenterology Comment on above: Refill Request Start: 05-27-2024 End: 05-27-2024 ambulatory DO Shannon Gómez Work Phone: [facility] Work Phone: Start: 05-27-2024 End: 05-27-2024 Departed Referred DO Shannon Gómez Work Phone: [facility] Start: 05-14-2024 End: 05-15-2024 Refill [facility] Comment on above: Other migraine witho ut status migrainosus, not intractable (Primary Dx) Start: 04-30-2024 End: 04-30-2024 ambulatory DO Shannon Gómez Work Phone: [facility] Work Phone: Start: 04-30-2024 End: 04-30-2024 Patient encounter procedure DO Shannon Parish Szymanskileigha Work Phone: [facility] [address] Work Phone: Start: 04-28-2024 End: 04-28-2024 ambulatory [facility] Start: 04-28-2024 End: 04-28-2024 ambulatory [facility] Start: 04-12-2024 ambulatory NA LI Facility:[facility] Start: 04-12-2024 End: 04-12-2024 Subsequent hospital visit by physician Milagros Franco MD, PhD Work Phone: [facility] Comment on above: Arrived Start: 04-03-2024 End: 04-03-2024 ambulatory [facility] Start: 03-12-2024 ambulatory Flower Sanabria on CAM MAKER.LOCKER ROOM SUPERVISOR Work Phone: URO/Gynecology Comment on above: Estradiol vaginal cr eam Start: 03-08-2024 ambulatory SELF SELF Facility:[facility] Start: 03-06-2024 ambulatory Shannon GÓMEZ Facili ty:[facility] Start: 03-06-2024 ambulatory RADHA Lemos y:[facility] Start: 03-06-2024 ambulatory Shannon GÓMEZ Mikii ty:[facility] Start: 02-27-2024 End: 02-27-2024 ambulatory FLOWER JESSICA Facility:[facility] Start: 02-27-2024 End: 02-27-2024 Patient encounter procedure Flower Lopez CAM MAKER.LOCKER ROOM SUPERVISOR Work Phone: URO/Gynecology Comment on above: Post-operative state (Primary Dx); Vaginal burning Start: 02-11-2024 End: 02-11-2024 ambulatory ELICEO GÓMEZ Facility:[facility] Start: 02-11-2024 End: 02-11-2024 ambulatory Lissa Doyle CAM MAKER.LOCKER ROOM SUPERVISOR Work Phone: Telemedicine Comment on above: Procedure and treatm ent not carried out for other reasons (Primary Dx) Start: 02-11-2024 End: 02-11-2024 Telemedicine consultation with patient Lissa Doyle CAM MAKER.LOCKER ROOM SUPERVISOR Work Phone: [facility] Start: 02-09-2024 ambulatory Pam rios MD Work Phone: URO/Gynecology Comment on above: Yeast infection Start: 02-07-2024 End: 02-07-2024 ambulatory [facility] Start: 01-27-2024 Telephone encounter Radha florez MD Work Phone: Gynecology Start: 01-26-2024 End: 01-26-2024 ambulatory ELICEO GÓMEZ JR Facility:[facility] Start: 01-25-2024 End: 01-25-2024 Telemedicine consultation with patient Nurse Gate Clerk Work Phone: [facility] Start: 01-25-2024 Encounter for other preprocedural examination PAM WANG [facility] Start: 01-25-2024 End: 01-25-2024 Admission to establishment [facility] Work Phone: [facility] Start: 01-25-2024 End: 01-25-2024 ambulatory Nurse Gate Clerk Work Phone: Pre Anesthesia Comment on above: Pre-op examination ( Primary Dx); Obesity (BMI 30.0-34.9); Mild persistent asthma without complication; CHUCKIE (obstructive sleep apnea); Primary hypertension; Gastroparesis; Gastroesophageal reflux disease, unspecified whether esophagitis present Educational circumst ances (Primary Dx) Start: 01-25-2024 End: 01-25-2024 Preprocedural examination done Located Within [facility] Virtual Work Phone: [facility] Work Phone: Start: 01-10-2024 End: 01-10-2024 Postop follow up visit related to original px Cullen Dawkins MD Work Phone: [facility] Comment on above: CHUCKIE (obstructive sle ep apnea) (Primary Dx) Start: 12-27-2023 Telephone encounter Cullen glover MD Work Phone: [facility] Start: 12-25-2023 ambulatory Pam rios MD Work Phone: URO/Gynecology Comment on above: Having another stimu lator besides bladder Start: 12-25-2023 Telephone encounter Pam simon MD Work Phone: Gynecology Comment on above: Question Start: 12-20-2023 End: 12-20-2023 Patient encounter procedure Metro Pat Provider 13 [facility] Comment on above: Pre-op testing (Prim tomer Dx) Start: 12-20-2023 End: 12-20-2023 Patient encounter status [facility] Start: 11-27-2023 End: 11-27-2023 ambulatory Beto Pradeeptonia Other Node Management Other Start: 11-27-2023 Telephone encounter [facility] Start: 11-23-2023 End: 11-23-2023 ambulatory DO Shannon Gómez Work Phone: [facility] Work Phone: Start: 11-23-2023 End: 11-23-2023 Patient encounter procedure DO Shannon Gómez Work Phone: [facility] Work Phone: Start: 11-21-2023 End: 11-21-2023 ambulatory ELICEO GÓMEZ JR Facility:[facility] Start: 11-16-2023 End: 11-16-2023 ambulatory Beto Snyder Other Node Management Other Start: 11-16-2023 Telephone encounter [facility] Start: 11-08-2023 Telephone encounter Emily Zamora [facility] Start: 11-03-2023 Orders Only Pualine Christensen MD Work Phone: [facility] Start: 10-26-2023 End: 10-26-2023 ambulatory Beto Snyder Other Node Management Other Start: 10-26-2023 Telephone encounter [facility] Start: 10-23-2023 End: 10-23-2023 ambulatory PAULINE CHRISTENSEN [facility] Start: 10-10-2023 End: 10-10-2023 ambulatory ELICEO GÓMEZ JR Facility:[facility] Start: 10-06-2023 End: 10-06-2023 ambulatory Beto Snyder Other Node Management Other Start: 10-06-2023 Telephone encounter [facility] Start: 09-27-2023 End: 09-27-2023 ambulatory Pam Wang MD Work Phone: Urogynecology Comment on above: Worsening Start: 09-27-2023 Refill Doris Juana CAM MAKER.LOCKER ROOM SUPERVISOR Work Phone (unformatted): [phone] Urogynecology Comment on above: Med Change Request Start: 09-11-2023 End: 09-11-2023 ambulatory PAM WANG Facility:[facility] Start: 08-12-2023 End: 08-12-2023 Emergency department patient visit LEX SALMON [facility] Start: 08-12-2023 End: 08-12-2023 Emergency department patient visit Lex Salmon MD Work Phone: [facility] Emergency [facility] Comment on above: Upper abdominal pain (Primary Dx) Start: 08-09-2023 ambulatory Mary Obrien MD Work Phone: Colorectal Surgery Comment on above: Response Start: 08-07-2023 End: 08-07-2023 ambulatory Mary Obrien MD Work Phone: Colorectal Surgery Comment on above: Colon Start: 08-01-[address] Eliceo Gómez Jr Facility: Start: 07-31-2023 End: 07-31-2023 ambulatory ELICEO GÓMEZ JR Facility:[facility] Start: 07-31-2023 End: 07-31-2023 Patient encounter procedure Nelsy Katya CAM MAKER.LOCKER ROOM SUPERVISOR Work Phone: URO/Gynecology Comment on above: Incomplete bladder e mptying (Primary Dx); Constipation, unspecified constipation type; Urinary urgency; Urinary frequency; Nocturia Start: 07-17-2023 (Procedure) Win Snyder [facility] Start: 07-17-2023 End: 07-17-2023 ambulatory Beto Snyder Other Node Management Other Start: 07-12-2023 End: 07-12-2023 ambulatory Beto Snyder Other Node Management Other Start: 07-12-2023 Telephone encounter [facility] Start: 06-13-2023 Office consultation new/estab patient 60 min Eliceo Gómez Work Phone: [facility] DO Work Phone: Start: 06-13-[address] Dipti Anaya Facility: Start: 06-07-[address] Dipti Anaya Facility:[id number] Start: 06-05-2023 End: 06-05-2023 Emergency department patient visit DO Shannon Gómez Work Phone: [facility]-Emergency Room Work Phone: Start: 05-28-2023 ambulatory Pam rios MD Work Phone: URO/Gynecology Comment on above: Problems with urinat ing Start: 04-26-2023 End: 04-26-2023 ambulatory Beto Snyder Other Node Management Other Start: 04-26-2023 Office outpatient vi sit 25 minutes Beto Snyder [facility] Start: 04-11-2023 Refill Isra S Clin e DO Work Phone: Gastroenterology Comment on above: Refill Request Start: 04-04-2023 End: 04-05-[address] Isatu GÓMEZ Facility:[facility] Start: 03-19-2023 ambulatory Isra S Clin e DO Work Phone: Gastroenterology Comment on above: Stool sample results Start: 03-17-2023 End: 03-17-2023 ambulatory DO Shannon Gómez Work Phone: [facility] Work Phone: Start: 03-17-2023 End: 03-17-2023 Discharged Recurring DO Shannon Gómez Work Phone: [facility]Physical Therapy [place] Work Phone: Start: 03-15-2023 Orders Only Isra Thorpe Clin adele DO Work Phone: Gastroenterology Comment [...] Start: 01-16-2023 End: 01-16-2023 Admission to establishment [facility] Start: 01-16-2023 End: 01-16-2023 ambulatory Located Within [facility] Virtual Pre Anesthesia Comment on [...] with patient Winston Hannah DO Work Phone: [facility] Start: 12-28-2022 ambulatory Yoni Tuttle MD Work [...] with patient Winston Hannah DO Work Phone: [facility] Start: 12-21-2022 End: 12-22-2022 ambulatory SADE Kenny [facility] Facility: Start: 12-15-2022 End: 12-15-2022 Manual pelvic examination Mary Obrien MD Work Phone: Colorectal Surgery Comment on above: Colonic inertia (Phoebe unique Dx); Pelvic floor dysfunction; Nausea; Gastroparesis Start: 12-15-2022 End: 12-15-2022 Telemedicine consultation with patient Mary Obrien MD Work Phone: [facility] Start: 12-14-2022 ambulatory Yoni Tuttle MD [...] patient questions) Start: 12-07-2022 ambulatory Winston Karimisavita chand DO Work Phone: General Surgery Comment on above: Carafate Start: 12-06-2022 ambulatory Isra S Clin e DO Work Phone: Gastroenterology Comment on above: Results Start: 12-05-2022 ambulatory Winston Karimitrinityamena c DO Work Phone: [facility] Start: 12-02-2022 ambulatory Isra S Clin e DO Work Phone: [facility] Start: 12-02-2022 Telephone encounter Yoni Tuttle MD Work Phone: Neurology Comment on above: Returning Nurse Call Start: 12-01-2022 End: 12-02-2022 ambulatory NIECY DURON Facility:[facility] Start: 11-30-2022 End: 11-30-2022 ambulatory Isra S Masters DO Work Phone: Gastroenterology Comment on above: Chronic idiopathic c onstipation (Primary Dx); Nausea Start: 11-30-2022 End: 11-30-2022 Telemedicine consultation with patient Isra Masters DO Work Phone: [facility] Start: 11-24-2022 ambulatory Isra S Clin e DO Work Phone: Gastroenterology Comment on above: SMART PILL RESULTS Approval for upcomin g pap titration test Start: 11-24-2022 Telephone encounter Yoni Tuttle MD Work Phone: Neurology Comment on above: Is PA Needed for PAP Titration Start: 11-22-2022 Telephone encounter Isra Thorpe Masters DO Work Phone: Gastroenterology Comment on above: Patient Update Start: 11-21-2022 End: 11-21-2022 ambulatory Yoni Tuttle MD Work Phone: Pre Anesthesia Comment on above: Pre-op exam (Primary Dx); Primary hypertension; Mild persistent asthma without complication; Gastroparesis; CHUCKIE (obstructive sleep apnea) Orders Start: 11-21-2022 End: 11-21-2022 Admission to establishment Pac Tevin Guzman 2 Work Phone: [facility] Start: 11-21-2022 End: 11-21-2022 Preprocedural examination done Located Within [facility] 2 Work Phone: Pre Anesthesia Start: 11-17-2022 ambulatory Annmarie Gillespie RN Gastroe nterology Start: 11-17-2022 Patient encounter procedure Annmarie Gillespie RN [facility] Start: 11-17-2022 End: 11-17-2022 Subsequent hospital visit by physician Capsule Work Phone: Gastroenterology Start: 11-16-2022 ambulatory Yoni Tuttle MD Work Phone: NEUROLOGY Comment on above: The delay Start: 11-15-2022 ambulatory Yoni Tuttle MD Work Phone: NEUROLOGY Comment on above: Labs Start: 11-14-2022 End: 11-15-2022 ambulatory NIECY DURON Facility:[facility] Start: 11-10-2022 Telephone encounter Annmarie Gillespie RNmotorboat mechanic helper Comment on above: Preparations For Pro cedures [...] Encounter for preprocedural laboratory examination SADE FELIX [facility] Start: 10-20-2022 End: 10-20-2022 ambulatory Isra Ila Masters DO Work Phone: Gastroenterology Comment on above: Smart pill Cpap Start: 10-19-2022 End: 10-19-2022 ambulatory JENNIFER GARCIA Facility:[facility] Start: 10-18-2022 Refill Isra Ila Michell rios DO Work Phone: Gastroenterology Comment on above: Refill Request Start: 10-17-2022 Telephone encounter Yoni Tuttle MD Work Phone: Neurology Comment on above: PAP Rx Faxed (DME: S HS ) Start: 10-17-2022 End: 10-18-[address] Isatu GÓMEZ Facility:[facility] Start: 10-14-2022 End: 10-14-2022 ambulatory DO Shannon Gómez Work Phone: [facility] Work Phone: Start: 10-14-2022 End: 10-14-2022 Discharged Recurring DO Shannon Gómez Work Phone: [facility] [place] Work Phone: Start: 10-13-2022 End: 10-14-2022 ambulatory SADE FELIX Facility:[facility] Start: 10-13-2022 End: 10-14-2022 Encounter for preprocedural laboratory examination SADE FELIX Facility:[facility] Start: 10-11-2022 End: 10-11-2022 ambulatory Beto Cartagena Other Node Management Other Start: 10-11-2022 Telephone encounter Beto Cartagena [facility] [employer] Start: 10-11-2022 End: 10-11-2022 Patient encounter procedure Isra Masters DO Work Phone: Gastroenterology Comment on above: Gas bloat syndrome ( Primary Dx); Chronic idiopathic constipation; Gastroparesis Start: 10-10-2022 End: 10-10-2022 ambulatory Beto Cartagena Other Node Management Other Start: 10-10-2022 Office outpatient ne w 30 minutes Beto Cartagena [facility] Start: 10-06-2022 End: 10-06-2022 ambulatory Beto Snyder Other Node Management Other Start: 10-06-2022 Patient encounter procedure Beto Snyder [facility] Start: 09-28-2022 Encounter for other preprocedural examination [facility] Start: 09-28-2022 Encounter for preprocedural cardiovascular examination [facility] Start: 09-26-2022 End: 09-27-2022 ambulatory [facility] Facility:[facility] Start: 09-22-2022 Office outpatient vi sit 25 minutes Beto Snyder [facility] Start: 09-22-2022 Telephone encounter Beto BATES [facility] Start: 09-22-2022 End: 09-22-2022 ambulatory DO Shannon Gómez Work Phone: Node Management Other Start: 09-22-2022 End: 09-22-2022 Patient encounter procedure DO Shannon Gómez Work Phone: [facility] Start: 09-14-2022 End: 09-14-2022 ambulatory Eliceo Gómez Other Node Management Other Start: 09-14-2022 Encounter by sierra Gómez [facility] Start: 09-14-2022 Office outpatient vi sit 15 minutes Beto Snyder [facility] Start: 09-14-2022 Telephone encounter Beto BATES G [facility] Start: 08-16-2022 ambulatory Mary Obrien MD Work Phone: Colorectal Surgery Comment on above: CT results Ct scan result quest ion Start: 08-16-2022 E-mail encounter fro m caregiver Mary Obrien MD Work Phone: [facility] Start: 08-12-2022 End: 08-12-2022 Subsequent hospital visit by physician Ct Prep [facility] Start: 07-27-2022 End: 07-28-2022 ambulatory SADE Kenny [facility] Facility:H1 Start: 07-26-2022 Telephone encounter Isra Masters [...] Health Start: 06-08-2022 End: 06-08-2022 ambulatory Beto Pradeeptonia Other Node Management Other Start: 05-30-2022 Refill Mary Obrien MD Work Phone: Colorectal Surgery Comment on above: Refill Request Start: 05-26-2022 End: 05-26-2022 ambulatory Beto Snyder Other Node Management Other Start: 05-26-2022 Office outpatient vi sit 25 minutes Beto Snyder [facility] Start: 05-12-2022 Office consultation new/estab patient 60 min Eliceo Gómez Work Phone: [facility] DO Work Phone: Start: 05-10-2022 End: 05-10-2022 ambulatory Allison Arita Other Node Management Other Start: 05-10-2022 Office outpatient vi sit 15 minutes Allison Arita [facility] Start: 05-03-2022 Telephone encounter Mary brewer MD Work Phone: Colorectal Surgery Comment on above: Horseshoer - O ther Start: 04-26-2022 Telephone encounter Mary brewer MD Work Phone: Colorectal Surgery Comment on above: Patient Question Start: 04-22-2022 End: 04-22-2022 Patient encounter procedure Jessi Sheets LOCKER ROOM SUPERVISOR Work Phone: Colorectal Surgery Comment on above: Follow-up examinatio n after colorectal surgery (Primary Dx); Pelvic floor dysfunction Start: 04-17-2022 End: 04-17-2022 ambulatory CHASITY FREIRE . Facility: Start: 04-07-2022 Telephone encounter Rachael Kenny [facility] Department Comment on above: PostOp Follow-up Start: 03-22-2022 Telephone encounter Mary brewer MD Work Phone: Colorectal Surgery Comment on above: Patient Question Start: 03-15-2022 End: 03-15-2022 ambulatory Beto Snyder Other Node Management Other Start: 03-15-2022 Office outpatient vi sit 15 minutes Beto Snyder [facility] Start: 03-15-2022 Telephone encounter Mary brewer MD Work Phone: Colorectal Surgery Comment on above: Horseshoer - O ther Medication Preauthor ization (PA for Dexilant renewal) Outside Labs Results Start: 03-15-2022 End: 03-15-2022 Patient encounter procedure Isra Masters Work Phone: Gastroenterology Comment on above: Gastroesophageal ref lux disease, unspecified whether esophagitis present; Chronic idiopathic constipation Start: 03-14-2022 End: 03-14-2022 PAT [facility] 4 Work Phone: Pre Anesthesia Comment on above: Preop examination (P rimary Dx); Attention to ileostomy (HCC); Primary hypertension; Gastroparesis; Gastroesophageal reflux disease, unspecified whether esophagitis present; Mild persistent asthma without complication; Bipolar 1 disorder (HCC); Obesity (BMI 30.0-34.9) Start: 03-14-2022 End: 03-14-2022 Preprocedural examination done Located Within [facility] 4 Work Phone: Pre Anesthesia Start: 02-28-2022 Telephone encounter Isra Ila Masters DO Work Phone: Gastroenterology Comment on above: Appointment (for scr ipt refill) Start: 02-18-2022 End: 02-18-2022 Patient encounter procedure Nelsy Chávez CAM MAKER.LOCKER ROOM SUPERVISOR Work Phone: URO/Gynecology Comment on above: Postoperative state (Primary Dx) Start: 02-11-2022 End: 02-11-2022 ambulatory Flaca Bartholomew PT Work Phone: [facility] Start: 02-11-2022 End: 02-11-2022 Follow-up encounter Flaca Bartholomew PT Work Phone: [facility] Physical Therapy Comment on above: Pelvic floor dysfunc tion (Primary Dx); Lack of coordination; Follow-up examination after colorectal surgery Start: 02-09-2022 (Procedure) Win Snyder [facility] Start: 02-09-2022 End: 02-09-2022 ambulatory Beto Pradeeptonia Other [employer] Other Start: 02-08-2022 End: 02-08-2022 Patient encounter procedure Mary Obrien MD Work Phone: Colorectal Surgery Comment on above: Follow-up examinatio n after colorectal surgery (Primary Dx) Post-operative state (Primary Dx); Yeast infection of the skin Start: 02-01-2022 Refill Isra Thorpe Michell rios DO Work Phone: Gastroenterology Comment on above: Refill Request (dexl ansoprazole) Start: 01-31-2022 End: 01-31-2022 ambulatory Newton Woodward PT Work Phone: [facility] Start: 01-31-2022 End: 01-31-2022 Follow-up encounter Newton Woodward PT Work Phone: [facility] Physical Therapy Comment on above: Pelvic floor dysfunc tion (Primary Dx); Lack of coordination; Follow-up examination after colorectal surgery Start: 11-25-2021 End: 11-25-2021 ambulatory Beto Snyder Other Node Management Other Start: 11-25-2021 Office outpatient vi sit 25 minutes Beto Snyder [facility] Start: 11-17-2021 End: 11-18-2021 ambulatory PARISH GÓMEZ [facility] Start: 10-20-2021 End: 10-20-2021 ambulatory Beto Fernándeztonia Other Node Management Other Start: 10-20-2021 Office outpatient vi sit 25 minutes Beto Snyder [facility] Start: 10-13-2021 (Procedure) Short Beto Snyder [facility] Start: 10-13-2021 End: 10-13-2021 ambulatory Beto Snyder Other Node Management Other Start: 09-06-2021 Office outpatient vi sit 25 minutes Beto Snyder [facility] Start: 08-19-2021 Office outpatient vi sit 15 minutes Erica Vashti [facility] Start: 08-13-2021 Office outpatient vi sit 15 minutes Tita Hardyy [facility] Start: 08-12-2021 Office outpatient vi sit 25 minutes Beto Fernándezer [facility] [place] Start: 07-28-2021 Office outpatient vi sit 25 minutes Beto Snyder [facility] Start: 12-25-2020 End: 12-25-2020 Subsequent hospital visit by physician Brianna Connors 1 Work Phone: Radiology Comment on above: Post-operative state [Z98.890] Start: 09-29-2020 End: 09-29-2020 Subsequent hospital visit by physician Brianna Connors 1 Work Phone: Radiology Comment on above: Pain [R52] Procedures Date Procedure Procedure Detail Performing Clinician Start: 07-15-2025 Adult depression scr eening assessment Ingrid Bhat MD Work Phone: Start: 07-09-2025 SKIN / NAIL BIOPSY Denita BROOKS Work Phone: Start: 07-01-2025 MR lumbar spine wo con [...] Work Phone: Comment on above: Performed at: [place] [id number] Director: Erick Neville PhD, Phone: [phone] Start: 01-03-2025 XR FOOT RT MIN 3V [...] 04-30-2024 MRI of right ankle DO Isatu Lugo Dalia Work Phone: Start: 04-12-2024 DIAGNOSTIC UPPER ENDOSCOPY Padmaja Llamas MD, PhD Work Phone: Start: 02-27-2024 BACTERIAL VAGINOSIS NAAT Flower Lopez CAM MAKER.LOCKER ROOM SUPERVISOR Work Phone: Start: 02-27-2024 Iadna trichomonas vaginalis amplified probe tech Flower Lopez CAM MAKER.LOCKER ROOM SUPERVISOR Work Phone: Start: 02-27-2024 Urnls dip stick/tabl et rgnt auto w/o microscopy Flower Lopez CAM MAKER.LOCKER ROOM SUPERVISOR Work Phone: Start: 12-20-2023 Basic metabolic pane l calcium total Caroline Brewer MD Work Phone: Start: 11-23-2023 Radionuclide imaging of liver and/or biliary tract using radioactive isotope DO Shannon Szymanskileigha Work Phone: Start: 11-01-2023 Lipid 1996 panel - S jay or Plasma Pam Wang MD Work Phone: Start: 10-31-2023 Mammography Kathie Amezquita DPM Work Phone: Start: 10-23-2023 Follow-up visit Follow-up PAULINE CHRISTENSEN Start: 10-23-2023 Adult depression scr eening assessment Pauline Christensen MD Work Phone: Start: 08-12-2023 Assay of troponin quantitative 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 Work Phone: Start: 08-12-2023 Ct abdomen & pelvis w/contrast material 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 Work Phone: Start: 08-12-2023 Urnls dip stick/tabl et reagent auto microscopy Lex Salmon MD Work Phone: Start: 08-12-2023 Basic metabolic pane l calcium total Lex Salmon MD Work Phone: Start: 08-12-2023 DARK GREEN TOP Lex buitrago MD Work Phone: Start: 08-12-2023 GOLD TOP Lex bacon MD Work Phone: Start: 08-12-2023 Hepatic function panel Levregina Ritter APRN LOCKER ROOM SUPERVISOR Work Phone: Start: 08-12-2023 LIGHT BLUE TOP [...] et rgnt auto w/o microscopy Nelsy Chávez CAM MAKER.LOCKER ROOM SUPERVISOR Work Phone: Start: 06-05-2023 Plain chest X-ray DO Shannon Gómez Work Phone: Start: 05-23-2023 H/O: artificial joint Presence of right artificial ankle joint Kathie Amezquita DPM Work Phone: Start: 03-02-2023 Aerobic microbial culture DO Shannon Gómez Work Phone: Start: 12-26-2022 Radiologic exam esop hagus single contrast study Winston Hannah DO Work Phone: Start: 09-22-2022 Plain X-ray of bilat eral shoulders DO Shannon Gómez Work Phone: Start: 09-22-2022 X-ray of both knees DO Shannon Ngtomasa Work Phone: Start: 09-14-2022 Mammography Lex rincon MD Work Phone: Start: 03-02-2022 Lipid 1996 panel - S jay or Plasma Nelsy Katya CAM MAKER.LOCKER ROOM SUPERVISOR Work Phone: Start: 02-08-2022 Urnls dip stick/tabl et rgnt auto w/o microscopy Magali Mitchell CAM MAKER.LOCKER ROOM SUPERVISOR Work Phone: Start: 12-16-2021 Antibody screen Comment on above: Performed By: #### T SCR30 ####[address] [phone] Start: 10-15-2021 Antibody screen Comment on above: Performed By: #### T SCR30 ####[phone] Start: 06-28-2021 Mammography Mary brewer MD Work Phone: Start: 02-18-2021 End: 06-23-2025 H/O: surgery S/P nasal septoplasty Kathie Amezquita DP M Work Phone: Start: 02-18-2021 History of tonsillectomy S/P tonsill ectomy Kathie Amezquita DPM Work Phone: Start: 12-25-2020 Radex [...] DTAP/TDAP/TD VACCINE (2 - Td or Tdap) [facility] Start: 06-22-2030 DTaP,Tdap and Td Vaccines (2 - Td or Tdap) DTaP,Tdap and Td Vaccines (2 - Td or Tdap) [facility] Start: 06-22-2030 Tetanus vaccination TETANUS [facility] Start: 06-22-2030 Urine microalbumin profile DTaP,Tdap,Td Vaccine (2 - T d or Tdap) [facility] Start: 11-01-2028 Lipid panel Lipid Screening [facility] Start: 12-05-2027 COLORECTAL CANCER SCREENING COLORECTAL CANCER SCREENING [facility] Start: 12-05-2027 Screening for malignant neoplasm of colon [facility] Start: 12-05-2027 SIGMOIDOSCOPY SIGMOIDOSCOPY [facility] Start: 03-02-2027 Lipid 1996 panel - Serum or Plasma Lipid Screening [facility] Start: 03-02-2027 LIPID SCREEN LIPID SCREEN [facility] Start: 12-20-2026 Diabetes Screening Diabetes Screening [facility] Start: 08-12-2026 Diabetes Screening Diabetes Screening [facility] Start: 07-15-2026 Adult BMI Screening Adult BMI Screening [facility] Start: 07-15-2026 Depression Screening Depression Screening [facility] Start: 07-15-2026 Tobacco Screening Tobacco Screening [facility] Start: 06-27-2026 Adult BMI Screening Adult BMI Screening [facility] Start: 06-27-2026 Tobacco Screening Tobacco Screening [facility] Start: 06-06-2026 Adult BMI Screening Adult BMI Screening [facility] Start: 06-06-2026 Tobacco Screening Tobacco Screening [facility] Start: 01-20-2026 Medicare Annual Wellness (AWV) Medicare Annual Wellness (AWV) [facility] Start: 11-20-2025 End: 11-20-2025 Patient encounter procedure [facility] Start: 10-14-2025 End: 10-14-2025 Patient encounter procedure 10/14/2025 8:00 AM EST Office Visit [facility] Neurology, A Department of [address] [place] [address] Ingrid Bhat MD [address] [place] [address], [facility] [address] [place] [address] [facility], A Department of [facility] Start: 08-19-2025 End: 08-19-2025 Patient encounter procedure 08/19/2025 3:30 PM EDT Office Visit [facility], A Department of [address] [place] [address] Pauline Christensen MD [address] [place] [address], [facility] [address] [place] [address] [facility], A Department of [facility] Start: 08-13-2025 End: 08-13-2025 Patient encounter procedure 08/13/2025 8:30 AM EDT Office Visit [facility] [address] [place] [phone] Chantale Sweet PA [address] [place] [address] [facility] Start: 07-16-2025 End: 07-16-2025 ambulatory 07/16/2025 6:40 AM EDT Lab [facility] [address] [place] [address] [facility] Start: 07-15-2025 End: 07-15-2026 MR Brain WO contrast MR brain without contrast Imaging Routine Hyperreflexia Expected: 07/15/2025, Expires: 07/15/2026 [facility] Comment on above: Expected: 07/15/2025, Expires: Start: 07-15-2025 End: 07-15-2026 MR Cervical spine WO contrast MR cervical spine withou t contrast Imaging Routine Hyperreflexia Expected: 07/15/2025, Expires: 07/15/2026 [facility] Comment on above: Expected: 07/15/2025, Expires: Start: 07-15-2025 End: 07-15-2025 Patient encounter procedure 07/15/2025 9:00 AM EDT Office Visit [facility], A Department of [address] [place] [address] Ingrid Bhat MD [address] [place] [address] [address] [place] [address] [facility], A Department of [facility] Start: 07-11-2025 End: 07-11-2025 Professional / ancillary services management 07/11/2025 2:00 PM EDT Ancillary Procedure [facility] [address] [facility] [address] [place] [phone] [facility] Start: 07-09-2025 End: 07-09-2025 Patient encounter procedure [facility] Comment on above: Arrived Start: 07-07-2025 COVID-19 Vaccine ( season) COVID-19 Vaccine ( season) [facility] Start: 07-07-2025 Influenza vaccination Influenza Vaccine [facility] Start: 06-27-2025 End: 06-27-2025 Admission to same day surgery center 06/27/2025 3:30 PM EDT - 06/27/2025 4:00 PM EDT Surgery [facility] - Endoscopy [address] [place] [address], [address] [place] [phone] Alberto Solis MD [address] [facility] [address] [place] [address] ESOPHAGOGASTRODUODENOSCOPY DILATATION [facility]oscopy Comment on above: ESOPHAGOGASTRODUODENOSCOPY DILATATION Start: 06-27-2025 End: 06-27-2025 ESOPHAGOGASTRODUODENOSCOPY DILATATION ESOPHAGOGASTRODUODENOSCOPY DILATATION esophageal dysphagia 06/27/2025 3:30 PM EDT [facility] Start: 06-27-2025 Subsequent hospital visit by physician 06/27/2025 3:30 PM EDT Hospital Encounter [facility] [address] [facility] [place] [phone] Alberto Solis MD [address] [facility] [address] [place] [address] [facility] Start: 06-24-2025 End: 08-24-2026 DBT Breast - bilateral screening Bilateral screening mammogram with tomosynthesis Imaging Routine Breast cancer screening by mammogram Expected: 06/24/2025, Expires: 08/24/2026 [facility] Comment on above: Expected: 06/24/2025, Expires: Start: 06-24-2025 End: 06-24-2025 Patient encounter procedure 06/24/2025 9:00 AM EDT Office Visit [facility] [address] [place] [address] Dipti Acevedo DO [address] [place] [address] [facility] Start: 06-17-2025 End: 06-17-2025 Patient encounter procedure 06/17/2025 8:15 AM EDT Office Visit [facility], A Department of [facility] [address] [facility] [address] [place] [phone] Soraida Gama PA [address] [facility] [place] [address] [facility], Department of [facility] Start: 06-06-2025 End: 06-06-2025 Patient encounter procedure 06/06/2025 9:00 AM EDT Office Visit [facility], A Department of [facility] [address] [facility] [address] [place] [address] Vicki Roche DO [address] [facility] [place] [address] Alberto Solis MD [address] [facility] [place] [address] [facility], A Department of [facility] Start: 04-30-2025 End: 04-30-2025 Patient encounter procedure 04/30/2025 4:00 PM EDT Procedure Visit [facility] [address] [place] [address] Salma Galeas DO [address] [place], [place] [phone] [facility] Start: 04-05-2025 DIABETES SCREEN DIABETES SCREEN [facility] Start: 04-05-2025 Diabetes Screening Diabetes Screening [facility] Start: 03-14-2025 DIABETES SCREEN DIABETES SCREEN [facility] Start: 03-14-2025 Medicare Annual Wellness (AWV) Medicare Annual Wellness (AWV) [facility] Start: 02-17-2025 [facility] Start: 01-20-2025 End: 01-20-2025 Patient encounter procedure 01/20/2025 1:00 PM EDT Office Visit [facility] [address] [place] [phone] Eliceo Gómez, DO [address] [place] [address] Bipolar disorder, current episode depressed, moderate (CMS/HCC) [facility] Comment on above: Bipolar disorder, current episode depres sed, moderate (CMS/HCC) Start: 01-09-2025 Adult BMI Screening Adult BMI Screening [facility] Start: 01-09-2025 Tobacco Screening Tobacco Screening [facility] Start: 12-26-2024 DIABETES SCREEN DIABETES SCREEN [facility] Start: 12-20-2024 Adult BMI Screening Adult BMI Screening [facility] Start: 12-20-2024 Tobacco Screening Tobacco Screening [facility] Start: 12-16-2024 Aldolase measurement [facility] Start: 12-16-2024 Hemolytic complement CH50 level [facility] Start: 12-16-2024 [facility] Start: 11-20-2024 Patient referral [facility] Work Phone: Start: 11-19-2024 End: 11-19-2024 Patient encounter procedure [facility] Comment on above: Arrived Start: 11-12-2024 End: 11-12-2024 Patient encounter procedure 11/12/2024 8:30 AM EST Office Visit [facility] [address] [place] [phone] Dipti Acevedo, DO [address] [place], [place] [id number] [facility] Start: 11-11-2024 End: 11-11-2024 Patient encounter procedure 11/11/2024 9:20 AM EST Office Visit [facility] [address] [place] [address] Nelsy Snyder, CAM MAKER-KWESI [address] [place] [address] [facility] Start: 11-04-2024 End: 11-04-2024 Telemedicine consultation with patient 11/04/2024 2:00 PM EST Telemedicine [facility] [address] [place] [phone] Merissa Delarosa, RD [address] [place] [address] 2[address] [place] [address] [facility] [place] Start: 11-01-2024 End: 11-01-2024 Professional / ancillary services management 11/01/2024 11:00 AM EST Ancillary Procedure [facility] [place] [address] [place] [address] [facility] [place] Start: 11-01-2024 End: 11-01-2024 Patient encounter procedure [facility] Comment on above: Aftercare following surgery Start: 10-31-2024 Screening for malignant neoplasm of breast [facility] Start: 10-28-2024 End: 10-28-2024 Telemedicine consultation with patient 10/28/2024 9:00 AM EST Telemedicine [facility] Primary Care at Outpatient Care [address] [place] [address] Lissa Lou, RD [address] [place] [phone] [facility] at Outpatient [facility] [place] Start: 10-24-2024 [facility] Start: 10-24-2024 [facility] Start: 10-23-2024 Adult BMI Screening Adult BMI Screening [facility] Start: 10-23-2024 Depression Screening Depression Screening [facility] Start: 10-23-2024 End: 10-23-2025 FECAL FAT,QUANTITATIVE FECAL FAT,QUANTITATIVE Fluids Routine Chronic diarrhea Expected: 10/23/2024, Expires: 10/23/2025 [facility] Comment on above: Expected: 10/23/2024, Expires: Start: 10-23-2024 End: 10-23-2025 NM Stomach Views for gastric emptying W [id number] SC PO NUC GASTRIC EMPTYING Imaging Routine Bloating Gastroparesis Expected: 10/23/2024, Expires: 10/23/2025 [facility] Comment on above: Expected: 10/23/2024, Expires: 5 Start: 10-23-2024 End: 10-23-2025 PANCREATIC ELASTASE, STOOL PANCREATIC ELASTASE, STOOL Fluids Routine Chronic diarrhea Expected: 10/23/2024, Expires: 10/23/2025 [facility] Comment on above: Expected: 10/23/2024, Expires: 5 Start: 10-23-2024 Tobacco Screening Tobacco Screening [facility] Start: 10-10-2024 BP Controlled (<130/80) BP Controlled (<130/80) [facility] Start: 07-12-2024 End: 07-12-2024 Professional / ancillary services management 07/12/2024 1:30 PM EDT Ancillary Procedure [facility] [address] [place] [address] [facility] Start: 07-11-2024 End: 07-11-2025 US Soft Tissue Palpable Mass US Soft Tissue Palpable M ass Imaging Routine Soft tissue mass Expected: 07/11/2024, Expires: 07/11/2025 [facility] Work Phone: Comment on above: Expected: 07/11/2024, Expires: 5 Start: 07-07-2024 COVID-19 VACCINE ( season) COVID-19 VACCINE ( season) [facility] Start: 07-07-2024 Covid-19 Vaccine ( season) Covid-19 Vaccine ( season) [facility] Start: 07-07-2024 Influenza vaccination [facility] Start: 06-27-2024 End: 06-27-2024 Patient encounter procedure 06/27/2024 9:45 AM EDT Office Visit [facility] [address] [place] [phone] Kathie Amezquita DPM [address] [place] [address] Arrived [facility] Comment on above: Arrived Start: 05-31-2024 Administration of varicella zoster vaccine Zoster (Shingles) Vaccine (2 of 2) [facility] Start: 05-31-2024 Zoster vaccine hzv live for subcutaneous use ZOSTER (SHINGLES) VACCINE (2 of 2) [facility] Start: 04-18-2024 End: 04-18-2024 Patient encounter procedure 04/18/2024 1:30 PM EDT Office Visit [facility] [address] [place] [phone] Pauline Christensen MD [address] [place] [address], [address], [address], [address] [place] [phone] [facility] Start: 01-10-2024 End: 01-10-2024 Patient encounter procedure 01/10/2024 12:45 PM EST Office Visit [facility] [address] [place] [address], [address] [place] [phone] Cullen Dawkins MD [address] [place] [address] [address] [place] [address] [facility] Start: 01-02-2024 End: 01-02-2024 Admission to same day surgery center 01/02/2024 11:00 AM EST - 01/02/2024 3:30 PM EST Surgery [facility] - Surgery [address] [place] [address] Cullen Dawkins MD [address] [place] [address] [address] [place] [address] INSERTION STIMULATOR NERVE HYPOGLOSSAL [[id number] (CPT )] [facility] - Surgery Comment on above: INSERTION STIMULATOR NERVE HYPOGLOSSAL [ [id number] ([facility] )] Start: 01-02-2024 End: 01-02-2024 INSERTION STIMULATOR NERVE HYPOGLOSSAL INSERTION STIMULATOR NERVE HYPOGLOSSAL CHUCKIE (obstructive sleep apnea) 01/02/2024 11:00 AM EST [facility] Start: 01-02-2024 Subsequent hospital visit by physician 01/02/2024 11:00 AM EST Hospital Encounter [facility] - Surgery [address] [place] [address] Cullen Dawkins MD [address] [facility] [address] [place] [address] [facility] - Surgery Start: 11-06-2023 Behavioral Health Screening Behavioral Health Screening [facility] Start: 11-06-2023 Depression Assessment Depression Assessment [facility] Start: 09-27-2023 End: 12-27-2023 Bacteria identified in Urine by Culture URINE CULTURE Microbiology Routine Burning with urination Expected: 09/27/2023, Expires: 12/27/2023 [facility] Work Phone: Comment on above: Expected: 09/27/2023, Expires: Start: 09-14-2023 Screening for malignant neoplasm of breast MAMMOGRAM [facility] Start: 08-01-2023 FUV, Provider: Dipti Anaya, Status: Pen, Time: 11:00 AM FUV, Provider: Dipti Anaya, Status: Pen, Time: 11:00 AM [facility] Work Phone: Start: 07-07-2023 Covid-19 Vaccine ( season) Covid-19 Vaccine ( season) [facility] Start: 07-07-2023 Influenza vaccination [facility] Start: 07-07-2023 Influenza vaccination given INFLUENZA VACCINE (#1) [facility] Start: 06-05-2023 [facility] Start: 04-22-2023 BP CONTROLLED (<130/80) BP CONTROLLED (<130/80) [facility] Start: 03-14-2023 BP CONTROLLED (<130/80) BP CONTROLLED (<130/80) [facility] Start: 02-18-2023 BP CONTROLLED (<130/80) BP CONTROLLED (<130/80) [facility] Start: 02-08-2023 BP CONTROLLED (<130/80) BP CONTROLLED (<130/80) [facility] Start: 01-18-2023 BP CONTROLLED (<130/80) BP CONTROLLED (<130/80) [facility] Start: 11-06-2022 DEPRESSION ASSESSMENT DEPRESSION ASSESSMENT [facility] Start: 09-22-2022 [facility] Start: 08-02-2022 End: 08-25-2023 Ct abdomen & pelvis w/contrast material CT ABD/PEL W IVCON Radiology Routine Periumbilical abdominal pain Expected: 08/02/2022, Expires: 08/25/2023 [facility] Work Phone: Comment on above: Expected: 08/02/2022, Expires: 3 Start: 07-07-2022 Influenza vaccination [facility] Start: 06-28-2022 Mammography [facility] Start: 2022 Administration of varicella zoster vaccine Zoster (Shingles) Vaccine (1 of 2) [facility] Start: 2022 COVID-19 VACCINE (4 - Booster for Pfizer series) COVID-19 VACCINE (4 - Booster for Pfizer series) [facility] Start: 2022 SHINGRIX VACCINE (1 of 2) SHINGRIX VACCINE (1 of 2) [facility] Start: 2022 Zoster vaccine hzv live for subcutaneous use ZOSTER (SHINGLES) VACCINE (1 of 2) [facility] Start: 04-01-2022 End: 06-01-2022 CBC W Auto Differential panel - Blood CBC + DIFF Lab Routine Follow-up examination after colorectal surgery Expected: 04/01/2022, Expires: 06/01/2022 [facility] Work Phone: Comment on above: Expected: 04/01/2022, Expires: 2 Start: 04-01-2022 End: 06-01-2022 Comprehensive metabolic 2000 panel - Serum or Plasma COMP METABOLIC PANEL Lab Routine Follow-up examination after colorectal surgery Expected: 04/01/2022, Expires: 06/01/2022 [facility] Work Phone: Comment on above: Expected: 04/01/2022, Expires: 2 Start: 04-01-2022 End: 06-01-2022 TYPE AND SCREEN,30 DAY TYPE AND SCREEN,30 DAY Blood Bank Routine Follow-up examination after colorectal surgery Expected: 04/01/2022, Expires: 06/01/2022 [facility] Work Phone: Comment on above: Expected: 04/01/2022, Expires: 2 Start: 01-19-2022 COVID-19 VACCINE (4 - Booster for Pfizer series) COVID-19 VACCINE (4 - Booster for Pfizer series) [facility] Start: 01-19-2022 COVID-19 VACCINE (4 - Pfizer series) COVID-19 VACCINE (4 - Pfizer series) [facility] Start: 11-06-2021 DEPRESSION ASSESSMENT DEPRESSION ASSESSMENT [facility] Start: 07-07-2021 Influenza vaccination INFLUENZA (#1) [facility] Start: 03-24-2021 Screening for malignant neoplasm of colon COLORECTAL CANCER SCREENING DISCUSSION [facility] Start: 04-05-2020 Screening for malignant neoplasm of breast MAMMOGRAM SCREENING DISCUSSION [facility] Start: 2017 COLOGUARD (FIT-DNA) COLOGUARD (FIT-DNA) [facility] Start: 2017 Colonoscopy COLONOSCOPY [facility] Start: 2017 COLORECTAL CANCER SCREENING COLORECTAL CANCER SCREENING [facility] Start: [address] COLONOGRAPHY [facility] Start: 2017 FECAL OCCULT BLOOD FECAL OCCULT BLOOD [facility] Start: 2017 LIPID SCREEN LIPID SCREEN [facility] Start: 2017 Screening for malignant neoplasm of colon [facility] Start: 2017 SIGMOIDOSCOPY SIGMOIDOSCOPY [facility] Start: 2012 Lipid panel LIPID SCREENING [facility] Start: 2012 Mammography MAMMOGRAM [facility] Start: 10-11-2008 Hepatitis B vaccination HEP B VACCINE (3 of 3 - 19+ 3-dose series) [facility] Start: 10-11-2008 Hepatitis B Vaccine (3 of 3 - 19+ 3-dose series) Hepatitis B Vaccine (3 of 3 - 19+ 3-dose series) [facility] Start: 2002 HPV TESTING HPV TESTING [facility] Start: 2002 Screening for malignant neoplasm of cervix HPV Testing [facility] Start: 1993 PAP TESTING PAP TESTING [facility] Start: 1993 Screening for malignant neoplasm of cervix [facility] Start: 1991 Urine microalbumin profile [facility] Start: 1990 Adult BMI Follow Up Plan Adult BMI Follow Up Plan [facility] Start: 1990 ANNUAL PCP TEAM CHRONIC DISEASE VISIT ANNUAL PCP TEAM CHRONIC DISEASE VISIT [facility] Start: 1990 ANNUAL WELLNESS VISIT ANNUAL WELLNESS VISIT [facility] Start: 1990 Anxiety Screening Anxiety Screening [facility] Start: 1990 BP CONTROLLED (<130/80) BP CONTROLLED (<130/80) [facility] Start: 1990 Depression Screening Depression Screening [facility] Start: 1990 HEPATITIS C SCREENING HEPATITIS C SCREENING [facility] Start: 1990 Hepatitis C screening Hepatitis C Screening [facility] Start: 1990 HIV SCREENING HIV SCREENING [facility] Start: 1990 HIV screening HIV Screening [facility] Start: 1987 HIV screening HIV SCREENING DISCUSSION [facility] Start: 1984 Adult depression screening assessment DEPRESSION SCREENING [facility] Start: 1984 Depression screening using PHQ-9 (Patient Health Questionnaire 9) score DEPRESSION SCREENING [facility] Start: 1978 PNEUMOCOCCAL (1 - PCV) PNEUMOCOCCAL (1 - PCV) [facility] Start: 1978 Pneumococcal vaccination Pneumococcal Vaccine (1 - PCV) [facility] Start: 1972 HEPATITIS B (1 of 3 - 3-dose series) HEPATITIS B (1 of 3 - 3-dose series) [facility] Start: 1972 Hepatitis B Vaccine (1 of 3 - 3-dose series) Hepatitis B Vaccine (1 of 3 - 3-dose series) [facility] Start: 1972 Hepatitis C screening HEPATITIS C VIRUS SCREENING [facility] Start: 1972 HPV/COTEST HPV/COTEST [facility] Start: 1972 Screening for malignant neoplasm of cervix [facility] 12 lead ECG EKG 12 lead ECG REYNA 08/12/2023 12:28 AM EDT [facility] Work Phone: 24 hour urine measurement [facility] Albumin [Mass/volume ] in Serum or Plasma [facility] Albumin/Globulin ratio [facility] Chromatin Ab [Units/ volume] in Serum or Plasma [facility] Complement C3 [Mass/ volume] in Serum or Plasma [facility] Complement C4 [Mass/ volume] in Serum or Plasma [facility] CT Abdomen and Pelvi s W contrast IV CT Abdomen / Pelvis With IV Contrast ONLY Imaging STAT 08/12/2023 5:42 AM EDT [facility] End: 07-15-2026 Cyanocobalamin vitamin b-12 Vitamin B12 Lab Routine Neuropathy B12 deficiency 1 Occurrences starting 07/15/2025 until 07/15/2026 [employer] Work Phone: Comment on above: 1 Occurrences starting 07/15/2025 until 07/15/2026 Dermatopathology exam Dermatopat hology exam Pathology and Cytology Timed Neoplasm of unspecified behavior of bone, soft tissue, and skin Release Upon Ordering for 1 Occurrences starting 07/09/2025 [facility] [employer] Work Phone: Comment on above: Release Upon Ordering for 1 Occurrences starting 07/09/2025 End: 01-12-2024 EGD - THERAPEUTIC, EUS, OR TUBE INTERVENTIONS EGD - THERAPEUTIC, EUS, OR TUBE INTERVENTIONS Endoscopy Routine Gastroparesis 1 Occurrences starting 01/11/2023 until 01/12/2024 [facility] Work Phone: Comment on above: 1 Occurrences starting 01/11/2023 until 01/12/2024 End: 06-06-2026 EGD w/ Dilation EGD w/ Dilation GI Routine Esophageal dysphagia 1 Occurrences starting 06/06/2025 until 06/06/2026 [facility] Work Phone: Comment on above: 1 Occurrences starting 06/06/2025 until 06/06/2026 Electromyography [facility] Electrophoresis: [id number] [facility] Electrophoresis: [id number] [facility] Electrophoresis: beta-globulin [facility] Electrophoresis: jenifer ma globulin [facility] End: 07-15-2026 EMG NCV EMG NCV Neurology Routine Neuropathy 1 Occurrences starting 07/15/2025 until 07/15/2026 [employer] [facility] Comment on above: 1 Occurrences starting 07/15/2025 until 07/15/2026 FAT, FECAL QUAL FAT, FECAL QUAL Lab Routine Diarrhea due to malabsorption Ordered: 03/15/2023 [facility] Work Phone: Comment on above: Ordered: 03/15/2023 End: 07-15-2026 Free light chains Free light chains Lab Routine Neuropathy 1 Occurrences starting 07/15/2025 until 07/15/2026 [employer] [facility] Comment on above: 1 Occurrences starting 07/15/2025 until 07/15/2026 End: 10-11-2023 Gi transit & pres ravinder wireless capsule w/interp CAPSULE ENDOSCOPY SMART Endoscopy Routine Gastroparesis 1 Occurrences starting 10/11/2022 until 10/11/2023 [facility] Work Phone: Comment on above: 1 Occurrences starting 10/11/2022 until 10/11/2023 Globulin [Mass/volum e] in Serum [facility] Homogenous nuclear A b pattern [Titer] in Serum [facility] Hydrogen breath test HYDROGEN (H 2) BREATH TEST GI/Bronch Routine Chronic abdominal pain Bloating Ordered: 08/09/2024 [facility] Comment on above: Ordered: 08/09/2024 IgA [Mass/volume] in Serum or Plasma [facility] IgG [Mass/volume] in Serum or Plasma [facility] IgM [Mass/volume] in Serum or Plasma [facility] IGP,rfxAptima HPV all,16/18,45 IGP,rfxAptima HPV all,16/18,45 Pathology and Cytology Routine Encounter for Papanicolaou smear of vagina Ordered: 06/24/2025 [facility] [employer] Work Phone: Comment on above: Ordered: 06/24/2025 Immunofixation for Urine Fir [facility] Lupus anticoagulant [Interpretation] in Platelet poor plasma [facility] Measurement of monoc lonal protein concentration [facility] End: 07-15-2026 Methylmalonic Acid, QN, P Methylmalonic Acid, QN, P Lab Routine Neuropathy B12 deficiency 1 Occurrences starting 07/15/2025 until 07/15/2026 [facility] Comment on above: 1 Occurrences starting 07/15/2025 until 07/15/2026 MR Cervical spine WO contrast [facility] Myoglobin [Mass/volu me] in Serum or Plasma [facility] Nuclear Ab [Titer] in Serum [facility] End: 12-17-2023 PAP TITRATION PSG (CPAP, BIPAP, ASV) PAP TITRATION PSG (CPAP, BIPAP, ASV) Procedures Routine CHUCKIE (obstructive sleep apnea) 1 Occurrences starting 11/17/2022 until 12/17/2023 [facility] Work Phone: Comment on above: 1 Occurrences starting 11/17/2022 until 12/17/2023 Patient Education [facility] Work Phone: Patient referral [facility] Work Phone: Protein [Mass/volume ] in Serum or Plasma [facility] Protein [Mass/volume ] in Urine [facility] Reagin Ab [Presence] in Serum by RPR [facility] SARS-CoV-2 (COVID-19 ) RNA [Presence] in Respiratory specimen by JOSÉ MIGUEL with probe detection SELF CHECK COVID Microbiology Routine Follow-up examination after colorectal surgery Ordered: 02/09/2022 [facility] Work Phone: Comment on above: Ordered: 02/09/[address] [facility] End: 07-15-2026 Serum Immunofixation Serum Immunofixation Lab Routine Neuropathy 1 Occurrences starting 07/15/2025 until 07/15/2026 [employer] [facility] Comment on above: 1 Occurrences starting 07/15/2025 until 07/15/2026 End: 11-30-2023 SIGMOIDOSCOPY SIGMOIDOSCOPY Endoscopy Routine Chronic idiopathic constipation 1 Occurrences starting 11/30/2022 until 11/30/2023 [facility] Work Phone: Comment on above: 1 Occurrences starting 11/30/2022 until 11/30/2023 SURG PATH REQUEST [facility] Comment on above: Release Upon Ordering for 1 Occurrences starting 04/12/2024, 1 completed Thrombin time [facility] Thyroglobulin Ab [Units/volume] in Serum or Plasma [facility] Thyroperoxidase Ab [Units/volume] in Serum or Plasma [facility] End: 08-12-2023 Troponin I.cardiac [Mass/volume] in Serum or Plasma Troponin I (One time) Lab Timed Once for 1 Occurrences starting 08/12/2023 until 08/12/2023 [facility] Work Phone: Comment on above: Once for 1 Occurrences starting 08/12/20 until 08/12/2023 URODYNAMICS WHI URODYNAMICS [facility]I Procedures Routine Incomplete bladder emptying Urinary urgency Urinary frequency Nocturia Ordered: 07/31/2023 [facility] Work Phone: Comment on above: Ordered: 07/31/2023 XR Shoulder - bilateral Views [facility] Immunizations Immunization Date Immunization Notes Care Provider Shante rai 12-11-2024 influenza virus vaccine, unspecified formulation [facility] 07-01-2024 influenza, injectabl e, madin cynthia canine kidney, preservative free Eliceo Gómez DO Work Phone: [facility] 05-21-2024 Hepatitis B vaccine (recombinant), CpG adjuvanted Kathie Amezquita DPM Work Phone: [facility] 05-21-2024 meningococcal oligosaccharide (groups A, C, Y and W-135) diphtheria toxoid conjugate vaccine (MCV4O) Kathie Amezquita DPM Work Phone: [facility] 04-05-2024 zoster vaccine recombinant Ktahie Amezquita DPM Work Phone: [facility] 04-05-2024 zoster vaccine, unspecified formulation Milagros Franco MD, PhD Work Phone: [facility] 12-21-2023 Influenza, injectabl e, Madin Newberg Canine Kidney, preservative free, quadrivalent Kathie Amezquita DPM Work Phone: [facility] 12-21-2023 influenza virus vaccine, unspecified formulation [facility] 08-17-2022 influenza, injectabl e, quadrivalent, preservative free Kathie Amezquita DPM Work Phone: [facility] 08-17-2022 influenza virus vaccine, unspecified formulation Nelsy Chávez APRN.[employer] SUPERVISOR Work Phone: [facility] 11-24-2021 Pfizer-BioNTech COVID-19 Vacc 30 MCG/0.3ML Intramuscular Suspension Eliceo Gómez Work Phone: [facility] [address] DO Work Phone: 08-19-2021 KENALOG - 10 mg Erica Ranjit d Other [employer] Other 05-11-2021 Pfizer-BioNTech COVID-19 Vacc 30 MCG/0.3ML Intramuscular Suspension Eliceo Gómez Work Phone: [facility] [address] DO Work Phone: 05-10-2021 Pfizer Purple Cap SARS-CoV-2 Vaccination Kathie Amezquita DPM Work Phone: [facility] 04-20-2021 Pfizer-BioNTech COVID-19 Vacc 30 MCG/0.3ML Intramuscular Suspension Eliceo Gómez Work Phone: [facility] DO Work Phone: 04-19-2021 Pfizer Purple Cap SARS-CoV-2 Vaccination Kathie Amezquita DPM Work Phone: [facility] 09-02-2020 influenza, injectabl e, quadrivalent, preservative free Eliceo [facility]ómez [facility] Work Phone: 08-06-2020 influenza, injectabl e, quadrivalent, preservative free Eliceo Gómez Work Phone: [facility] 06-22-2020 tetanus toxoid, redu nayeli diphtheria toxoid, and acellular pertussis vaccine, adsorbed Eliceo Gómez Work Phone: [facility] Work Phone: 02-01-2020 Toradol per 15 mg Beto turpin Other [employer] Other 08-20-2019 influenza, injectabl e, quadrivalent, preservative free Kathie Amezquita DPM Work Phone: [facility] 07-15-2018 influenza, seasonal, injectable, preservative free Eliceo Gómez Work Phone: [facility] DO Work Phone: 07-14-2016 Rocephin 500 mg Beto ellis Other [employer] Other 05-12-2008 hepatitis B vaccine, adult dosage Eliceo Asiya Szymanskijerometomasa Work Phone: [facility] [address] DO Work Phone: 04-11-2008 hepatitis B vaccine, adult dosage Eliceo Gómez Work Phone: -[facility]-Ambrosio Lopez DO Work Phone: Payers Date Payer Category Payer Commercial Managed C are - HMO [id number] 2024 Managed Care HMO (unspecified) [employer] H[employer] [id number] 2024 Unknown [id number] 2024 Medicare HMO [id number] 2024 Private Health Insurance [id number] 2024 Self-pay [id number] 2024 Medicare [id number] 2024 Medicare (Managed Care) 1.2. [id number] 2024 Medicare [id number] 2024 Private Health Insurance [id number] 2024 Private Health Insurance [id number] 2024 Unknown 2022 [facility] [id number] 2021 Medicaid [employer] MEDICA ID [employer] MEDICAID [id number] 2021-Present [phone] [address] [place] [address] Medicaid [id number] .[id number] 2019 Medicaid [id number]. 1.13.159.2 .[id number] 1972 Unknown [id number] 2.16.840.1.272919.3.579.2 .176 1972 Unknown [id number] 2.16.840.1.664845.3.579.2 .593 1972 Unknown [id number] 2.16.840.1.167510.3.579.2 .593 1972 Unknown [id number] 2.16.840.1.250021.3.579.2 .593 1972 Unknown [id number] 2.16.840.1.746823.3.579.2 .593 1972 Unknown [id number] 2.16.840.1.499704.3.579.2 .593 1972 Unknown [id number] 2.16.840.1.523165.3.579.2 .593 1972 Unknown [id number] 2.16.840.1.885646.3.579.2 .593 1972 Unknown [id number] 2.16.840.1.878124.3.579.2 .593 1972 Unknown [id number] 2.16.840.1.619827.3.579.2 .593 1972 Unknown [id number] 2.16.840.1.412948.3.579.2 .593 1972 Unknown [id number] 2.16.840.1.160148.3.579.2 .593 1972 Unknown [id number] 2.16.840.1.676241.3.579.2 .593 1972 Unknown [id number] 2.16.840.1.110391.3.579.2 .593 1972 Unknown [id number] 2.16.840.1.422359.3.579.2 .593 1972 Unknown [id number] 2.16.840.1.602725.3.579.2 .593 1972 Unknown [id number] 2.16.840.1.777016.3.579.2 .593 1972 Unknown [id number] 2.16.840.1.367706.3.579.2 .593 1972 Unknown [id number] 2.16.840.1.212324.3.579.2 .297 1972 Unknown [id number] 2.16.840.1.370664.3.579.2 .297 1972 Unknown [id number] 2.16.840.1.652286.3.579.2 .356 1972 Unknown [id number] 2.16.840.1.824081.3.579.2 .356 1972 Unknown [id number] 2.16.840.1.207852.3.579.2 .356 1972 Unknown [id number] 2.16.840.1.942650.3.579.2 .1286 1972 Unknown [id number] 2.16840.1.649004.3.579.2 .594 1972 Unknown [id number] 2.16.840.1.839137.3.579.2 .594 1972 Unknown [id number] 2.16840.1.090788.3.579.2 .594 1972 Unknown [id number] 2.16840.1.218877.3.579.2 .594 1972 Unknown [id number] 2.16840.1.098952.3.579.2 .594 1972 Unknown [id number] 2.16840.1.230349.3.579.2 .594 1972 Unknown [id number] 2.840.1.772056.3.579.2 .594 1972 Unknown [id number] 2.840.1.130804.3.579.2 .594 1972 Unknown [id number] 2.840.1.362093.3.579.2 .594 1972 Unknown [id number] 2.16840.1.299763.3.579.2 .594 1972 Unknown [id number] 2.840.1.718188.3.579.2 .196 1972 Unknown [id number] 2.16840.1.684532.3.579.2 .196 1972 Unknown [id number] 2.16840.1.626881.3.579.2 .196 1972 Unknown [id number] 2.16840.1.712178.3.579.2 .196 1972 Unknown [id number] 2.16840.1.287481.3.579.2 .196 1972 Unknown [id number] 2.16840.1.701467.3.579.2 .1972 Unknown [id number] 2.16840.1.263914.3.579.2 .1972 Unknown [id number] 2.16.840.1.487962.3.579.2 .1972 Unknown [id number] 2.16840.1.900558.3.579.2 .1972 Unknown [id number] 2.16840.1.369012.3.579.2 .1258 1972 Unknown [id number] 2.840.1.224166.3.579.2 .1258 1972 Unknown [id number] 2.840.1.122578.3.579.2 .1258 1972 Unknown [id number] 2.840.1.967152.3.579.2 .1258 1972 Unknown [id number] 2.840.1.216970.3.579.2 .1258 1972 Unknown [id number] 2.840.1.429768.3.579.2 .1258 1972 Unknown [id number] 2.16840.1.119438.3.579.2 .1258 1972 Unknown [id number] 2.840.1.561059.3.579.2 .1258 1972 Unknown [id number] 2.840.1.221922.3.579.2 .1258 1972 Unknown [id number] 2.16840.1.429281.3.579.2 .1258 1972 Unknown [id number] 2.16840.1.568264.3.579.2 .1258 1972 Unknown [id number] 2.16840.1.762879.3.579.2 .1258 1972 Unknown [id number] 2.16840.1.768492.3.579.2 .1258 1972 Unknown [id number] 2.16840.1.110792.3.579.2 .1258 1972 Unknown [id number] 2.16.840.1.456883.3.579.2 .1258 1972 Unknown [id number] 2.840.1.673988.3.579.2 .1258 1972 Unknown [id number] 2.840.1.576093.3.579.2 .1258 1972 Unknown [id number] 2.840.1.513843.3.579.2 .1285 1972 Unknown [id number] 2.840.1.461014.3.579.2 .1285 1972 Unknown [id number] 2.0.1.947166.3.579.2 .1285 1972 Unknown [id number] 2.0.1.164216.3.579.2 .1285 1972 Unknown [id number] 2.840.1.675084.3.579.2 .1285 1972 Unknown [id number] 2.840.1.106011.3.579.2 .1285 1972 Unknown [id number] 2.840.1.012990.3.579.2 .128 1959 Medicaid [id number] 1959 Unknown [id number] Unknown [facility] [id number] Unknown [id number] 2.16840.1.610142.3.579.2 .531 Unknown [id number] 2.840.1.952262.3.579.2 .531 Unknown [id number] 2.16.840.1.888916.3.579.2 .531 Unknown [id number] 2.16.840.1.663022.3.579.2 .531 Unknown [id number] 2.16.840.1.570421.3.579.2 .531 Unknown [id number] 2.16.840.1.756875.3.579.2 .531 Unknown [id number] 2.16.840.1.882392.3.579.2 .531 Unknown [id number] 2.16.840.1.231283.3.579.2 .531 Unknown [id number] 2.16.840.1.458589.3.579.2 .531 Unknown [id number] 2.16.840.1.305705.3.579.2 .531 Social History Date Type Detail Facility Start: 10-08-2020 End: 09-01-2022 Tobacco smoking status VAIS Never smoked tobacco [facility] Start: 10-08-2020 End: 09-01-2022 Tobacco use and exposure Smokeless tobacco non-user [facility] Start: 01-04-2022 End: 06-24-2025 Alcohol intake Lifetime non-drinker (finding) [facility] Start: 10-08-2020 History SDOH Alcohol Frequency 1 [facility] Start: 1970 Sex Assigned At Female [facility] Start: 08-30-2020 End: 07-26-2022 Exposure to SARS-CoV-2 (event) Not sure [facility] Start: 10-08-2020 End: 11-23-2020 Sex Assigned At [facility] Start: 10-08-2020 End: 11-23-2020 No alcohol use No alcohol use [facility] Comment on above: 3 TEA WEEK; How often to you hav e a drink containing alcohol? Never [facility] Average Number of Drinks Not on file [facility] Start: 07-28-2020 Gender identity Identifies as female gender (finding) [facility] [facility]21 Sexual orientation Heterosexual (fin quintin) [facility] Start: 06-05-2023 End: 06-05-2023 Tobacco smoking status NHIS Smoker (finding) [facility] Start: 1970 Sex Assigned At Not on file [facility] Tobacco smoking stat [facility] Tobacco smoking consumption unknown [facility] Within the last year , have you [...] Start: 06-11-2015 End: 09-16-2024 Sex Female (finding) [facility] Start: 01-18-2024 End: 07-15-2025 Alcoholic beverage intake Ex-drinker (finding) [facility] How hard is it for y ou [...] Equipment Original Text Equipment Identifier Dates Fibertak [place] Self-Punching Knotless 2.6mm W/No 5 Suture [id number] Start: 10-14-2020 Fibertak [place] Knotless 2.6mm [id number] Start: 10-14-2020 [place] Swivelock C 4.75mm Biocomposite Peek 19.1mm Suture Closed Eyelet - [id number] Start: 10-14-2020 Sling Gynecare T vt Exact Gynecological Stress Urinary Incontinence - [id number] Start: 12-24-2021 DISC CERVICAL 13 X15X5H MOBI-C FDA Start: 09-20-2017 DISC CERVICAL 13 X15X5H MOBI-C FDA Start: 09-20-2017 DISC CERVICAL 13 X15X5H MOBI-C FDA Start: 09-20-2017 DISC CERVICAL 13 X15X5H MOBI-C FDA Start: 09-20-2017 DISC CERVICAL 13 X15X5H MOBI-C FDA Start: 09-20-2017 Lead Intrstim Mr i 28cm - [id number] Start: 01-26-2024 Interstim X Rech arge Free Neurostimulator - [id number] Start: 01-26-2024 DISC CERVICAL 13 X15X5H MOBI-C FDA Start: 09-20-2017 DISC CERVICAL 13 X15X5H MOBI-C FDA Start: 09-20-2017 DISC CERVICAL 13 X15X5H MOBI-C FDA Start: 09-20-2017 DISC CERVICAL 13 X15X5H MOBI-C FDA Start: 09-20-2017 DISC CERVICAL 13 X15X5H MOBI-C FDA Start: 09-20-2017 DISC CERVICAL 13 X15X5H MOBI-C FDA Start: 09-20-2017 Generator Nrstm - [id number] Start: 01-02-2024 Lead Ns Respirat ory - [id number] Start: 01-02-2024 Lead Nrstm Inspr 3 Elect Cuf Tnl Boni Strl Lf - [id number] - [id number] Start: 01-02-2024 DISC CERVICAL 13 X15X5H [...] 8:59 AM EDT Nida Toro MA [facility] 06-24-2025 Patient Health Quest ionnaire 2 item (PHQ-2) [Reported] [facility] 06-06-2025 Patient Health Quest ionnaire 2 item (PHQ-2) [Reported] [facility] Clinical Notes 10-27-2020 to 07-15-2025 Ingrid Bhat MD - 07/15/2025 9:00 AM EDTPatient CECILIA Pickens - 07/09/2025 3:00 PM Toni Solis MD - 07/03/2025 12:13 PM CECILIA Davis - 06/06/2025 2:20 PM EDT Note Date & Type Note Facility 07-15-2025 History of Present illness Narrative Images from the original note were not included. [address] [facility] [id number] Mary Leal is a 55 y.o. right-handed female with a relevant PMH of chronic insomnia and RLS (managed in sleep clinic), bipolar disorder, fibromyalgia, chronic constipation s/p total colectomy, prior C spine surgery in 2016, R CTS release ~30 years ago, and chronic migraine headaches (on CGRP inhibitors) presenting with BLE numbness, tingling, and weakness. History of Present Illness: The patient reports that his BLE symptoms started several weeks ago. She first noticed a sensation of her knees giving out. She was diagnosed with fibromyalgia. Over the past year or so there has been the emergence of tingling in the feet which has slowly progressed up the legs and is now also in the arms. It is pins and needles. The symptoms are always present but get worse as the day goes on. EMG at [facility] in 04/2025 showed (R/L) sural SNAPs of 1.4/2.7, superP SNAPs of 3.4/9.6, peroneal CMAPs at the EDB of NR/1.0 (no TA studies done), and tibial CMAPs of 3.2/2.5. Complete needle study of BLE showed no active changes, but chronic changes in the L TA, AH, EHL, and mildly so in the Gmed, as well as in the R AH, EHL, TA, and mildly so in the Gmed. This was read as b/l L5 radiculopathies as well as a mild/moderate axonal polyneuropathy (no comment made re: the asymmetric SNAPs). She reports that he right leg swells quite a bit, but is not sure if her right leg was swollen at the time of the study. She often wears b/l compression sock. Notes that she has also had 4 surgeries on her right foot due to fixing flat feet at well as due to trauma. She had a recent normal SPEP, TSH, A1c, B1, and B6. Her B12 level was 214, and was 181 in 2019. She reports that she has taken a daily B12 supplement for the past 2 months, but not prior. Current Outpatient Medications Medication Sig Dispense Refill amphetamine-dextroamphetamine XR (ADDERALL XR) 25 mg 24 hr capsule Take by mouth. ARIPiprazole (ABILIFY MAINTENA) 300 mg suspension,extended rel recon Inject 1.5 mL (300 mg total) into the appropriate muscle every 28 days. atenoloL (TENORMIN) 25 mg tablet Take 1 tablet (25 mg total) by mouth in the morning. Indications: high blood pressure. cholecalciferol, vitamin D3, 5,000 units tablet Take 1 tablet (5,000 Units total) by mouth. colestipoL (COLESTID) 1 g tablet Take 1 tablet (1 g total) by mouth in the morning and 1 tablet (1 g total) before bedtime. 60 tablet 3 cyproheptadine (PERIACTIN) 4 mg tablet Take 1 tablet (4 mg total) by mouth daily as needed. estradioL (ESTRACE) 0.01 % (0.1 mg/gram) vaginal cream APPLY 0.5G VAGINALLY TWICE A WEEK ferrous sulfate 325 (65 FE) mg EC tablet Take 65 mg by mouth every other day. qhkytorrlai-lnzmorvhy-swkqueqw (TRELEGY ELLIPTA) 100-62.5-25 mcg blister with device Inhale 1 puff in the morning. 60 each 5 galcanezumab-gnlm (EMGALITY PEN) 120 mg/mL pen injector INJECT 120MG SUBCUTANEOUSLY ONCE EVERY 30 DAYS 1 mL 5 lidocaine (LIDODERM) 5 % APPLY 1 PATCH TO AFFECTED AREA FOR 12 HOURS, THEN REMOVE FOR 12 HOURS losartan (COZAAR) 25 mg tablet Take by mouth daily. rOPINIRole (REQUIP) 2 mg tablet Take 1 tablet (2 mg total) by mouth nightly. 1 mg in the morning vitamin D2-vitamin K1 20-120 mcg/4 drops drops baclofen (LIORESAL) 10 mg tablet TAKE 1/2 TO 1 TABLET BY MOUTH 3 TIMES A DAY (Patient not taking: Reported on 07/15/2025) daridorexant 50 mg tablet Take 50 mg by mouth nightly. (Patient not taking: Reported on 07/15/2025) fremanezumab-vfrm (AJOVY AUTOINJECTOR) 225 mg/1.5 mL inject 1 AND 1/2 milliliters subcutaneously every 28 DAYS (Patient not taking: Reported on 06/06/2025) 1.5 mL 5 lamoTRIgine (LaMICtal) 25 mg tablet Take 1 tablet (25 mg total) by mouth in the morning. (Patient not taking: Reported on 06/06/2025) naltrexone (REVIA) 50 mg tablet Take 4.5 mg by mouth in the morning. (Patient not taking: Reported on 07/15/2025) rimegepant 75 mg tablet,disintegrating Dissolve 1 tablet on tongue daily as needed (Migraine headache). (Patient not taking: Reported on 06/06/2025) 12 tablet 4 VYVANSE 30 mg capsule Take 1 capsule (30 mg total) by mouth. 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 Past Medical History: Diagnosis Date ADD (attention [...] syndrome Visual impairment one contact left, glasses Family History Problem Relation Age of Onset Hypertension Mother Dementia Mother Atrial fibrillation Father Heart failure Father Alcohol abuse Sister Drug abuse Sister Liver disease Sister Colon cancer Other Anesthesia problems Neg Hx Past Surgical History: Procedure Laterality Date APPENDECTOMY ARTHROSCOPIC REPAIR ACL Left CARPAL TUNNEL RELEASE Left COLONOSCOPY COLONOSCOPY with bx's N/A 03/20/2020 Performed by Alberto Solis MD at [facility] ENDOSCOPY EGD, DILATATION N/A 09/25/2020 Performed by Alberto Solis MD at [facility] ENDOSCOPY ENDOSCOPIC DIAGNOSTIC DRUG INDUCED SLEEP Bilateral 09/19/2023 Performed by Cullen Dawkins MD at [facility] ESOPHAGOGASTRODUODENOSCOPY BIOPSY N/A 06/27/2025 Performed by Alberto Solis MD at [facility] ENDOSCOPY FOOT SURGERY 06/25/2020 left foot surgery FOOT SURGERY Right 10/2022 and 05/2023 HYSTERECTOMY 2015 INSERTION STIMULATOR NERVE HYPOGLOSSAL Right 01/02/2024 Performed by Cullen Dawkins MD at [facility] LASER LINGUAL TONISILLECTOMY Circumferential 07/08/2021 Performed by Alexei Avila MD PhD at [facility] MRI FOOT LEFT NECK SURGERY 2017 PLANTAR FASCIECTOMY RELEASE PHARYNGEAL SCAR CPT 43541 Circumferential 07/08/2021 Performed by Alexei Avila MD PhD at [facility] RESECTION SUBMUCOSAL NASAL Bilateral 02/11/2021 Performed by Alexei Avila MD PhD at [facility] ROTATOR CUFF REPAIR Right SEPTOPLASTY Circumferential 02/11/2021 Performed by Alexei Avila MD PhD at [facility] TONSILLECTOMY Bilateral 02/11/2021 Performed by Alexei Avila MD PhD at [facility] TOTAL COLECTOMY 03/2022 uvuloplasty N/A 02/11/2021 Performed by Alexei Avila MD PhD at [facility] Allergies Allergen Reactions Risperidone Other (See Comments) My Boobs Leak Social History Socioeconomic History Marital status: Spouse name: Not on file Number of children: Not on file Years of education: Not on file Highest education level: Not on file Occupational History Not on file Tobacco Use Smoking status: Never Smokeless tobacco: Never Vaping Use Vaping status: Never Used Substance and Sexual Activity Alcohol use: Not Currently Drug use: Never Sexual activity: Defer Other Topics Concern Not on file Social History Narrative Not on file Social Drivers of Health Financial Resource Strain: Low Risk (06/04/2025) Received from [facility] Overall Financial Resource Strain (CARDIA) Difficulty of Paying Living Expenses: Not very hard Food Insecurity: No Food Insecurity (07/15/2025) Hunger Screening Food Insecurity - Worry: Never True Food Insecurity - Inability: Never True Transportation Needs: No Transportation Needs (06/04/2025) Received from [facility] PRAPARE - Transportation Lack of Transportation (Medical): No Lack of Transportation (Non-Medical): No Physical Activity: Sufficiently Active (06/04/2025) Received from [facility] Exercise Vital Sign Days of Exercise per Week: 5 days Minutes of Exercise per Session: 30 min Stress: No Stress Concern Present (06/04/2025) Received from [facility] [place] [employer] - Occupational Stress Questionnaire Feeling of Stress : Not at all Social Connections: Socially Isolated (06/04/2025) Received from [facility] Social Connection and Isolation Panel [NHANES] Frequency of Communication with Friends and Family: More than three times a week Frequency of Social Gatherings with Friends and Family: More than three times a week Attends L[employer] Services: Never Active Member of Clubs or Organizations: No Attends Club or Organization Meetings: Never Marital Status: Interpersonal Safety: Not At Risk (06/04/2025) Received from [facility] Humiliation, Afraid, Rape, and Kick questionnaire Fear of Current or Ex-Partner: No Emotionally Abused: No Physically Abused: No Sexually Abused: No Housing Instability: High Risk (06/04/2025) Received from [facility] Housing Stability Vital Sign Unable to Pay for Housing in the Last Year: Yes Number of Times Moved in the Last Year: 0 Homeless in the Last Year: No Admission on 06/27/2025, Discharged on 06/27/2025 Component Date Value Ref Range Status Case Report 06/27/2025 Final Value:Surgical Pathology Report Case: [id number] Authorizing Provider: Alberto Solis MD Collected: 06/27/2025 1507 Ordering Location: [facility] Received: 06/27/2025 1512 - Endoscopy Pathologist: Paz Guillermo MD Specimens: 1) - Stomach, gastric bx, r/o h. pylori 2) - Duodenum, duodenal bx, r/o celiac disease & disaccharidase Final Diagnosis 06/27/2025 Final Value: Stomach, biopsy: Reactive/chemical gastropathy. - H. pylori immunostain is negative for H. pylori organisms. Duodenum, biopsy: Negative for celiac disease. Gross Description 06/27/2025 Final Value:1. Received in formalin labeled ELVIS, gastric biopsy , are 4 jaimes feathery tissue bits 0.3 cm - 0.5 cm. The specimen is filtered and submitted entirely in a single cassette. (1,ns,[id number], m1) 2. Received in formalin labeled ELVIS, duodenal biopsy , are 6 jaimes feathery tissue bits 0.2 cm - 0.3 cm. The specimen is filtered and submitted entirely in a single cassette. (1,ns,[id number], m1) Lab on 05/13/2025 Component Date Value Ref Range Status HEMOGLOBIN A1C 05/13/2025 5.2 4.4 - 5.6 % Final EST. AVERAGE GLUCOSE 05/13/2025 103 mg/dL Final TSH 05/13/2025 3.16 0.49 - 4.67 uIU/mL Final VITAMIN B12 05/13/2025 214 180 - 914 pg/mL Final PYRIDOXIC ACID (PA), P 05/13/2025 6 3 - 30 mcg/L Final PYRIDOXAL 5-PHOSPHATE (PLP), P 05/13/2025 10 5 - 50 mcg/L Final FOLIC ACID 05/13/2025 >25.0 >5.8 ng/mL Final COPPER 05/13/2025 110 77 - 206 mcg/dL Final HEAVY METAL VENOUS/CAPILLARY 05/13/2025 Venous Final ARSENIC, B 05/13/2025 <1 <13 ng/mL Final CADMIUM, B 05/13/2025 <0.2 <5.0 ng/mL Final MERCURY, B 05/13/2025 <1 <10 ng/mL Final LEAD, B 05/13/2025 <1.0 <3.5 mcg/dL Final TOTAL PROTEIN 05/13/2025 6.2 6.0 - 8.0 g/dL Final ALPHA 1 GLOBULIN 05/13/2025 0.3 0.1 - 0.4 g/dL Final ALPHA 2 GLOBULIN 05/13/2025 0.6 0.4 - 1.1 g/dL Final BETA GLOBULIN 05/13/2025 0.8 0.5 - 1.2 g/dL Final GAMMA GLOBULIN 05/13/2025 0.7 0.5 - 1.6 g/dL Final Protein Electrophoresis Interp 05/13/2025 Unremarkable protein distribution, no monoclonal bands Final Albumin 05/13/2025 3.9 3.4 - 5.3 g/dL Final THIAMIN (VITAMIN B1), WB 05/13/2025 114 70 - 180 nmol/L Final Urine Protein Electrophoresis Inte* 05/14/2025 Unremarkable protein distribution, no monoclonal bands Final Family history: Mother with AD. Social History: Denies tobacco, EtOH, or drug use (including whippets). NEURO EXAM: Mental Status: alert, oriented to situation; fluent speech; normal comprehension of common spoken language; memory intact to the details of the history; follows axial and appendicular commands. Cranial Nerves: VFFTC, PERRL, EOMI without nystagmus, facial strength intact, tongue/palate midline, no dysarthria, tongue bulk normal, shoulder shrug symmetric. Motor Exam: normal bulk and tone, no pronator drift. Finger and foot taps fast and symmetric. No resting/postural/kinetic/intentio n tremor or other extraneous movements. Delt Biceps Triceps WE FE FDI ADM APB FPL FF Right 4 4* 5 5 5 5 5 4* 5 4* Left 4 4* 5 5 5 5 5 4* 5 4* IP Ham Quads TA EHL Gastroc Right 5 4* 4* 5 5 5* Left 4 4* 4* 5 5 5* 4 = pain limited 4* = breakaway without pain, not clearly demonstrating full strength 5* = weak to confrontation but able to arise on toes. Sensory Exam: LT is abnormal in the circumferentially in the entirety of the BUE and BLE. Positive Tinels at the wrist; Tinel's at the elbows cause symptoms in the LATERAL palmar hands. Vibration intact but diminished at the bilateral great toes. Reflexes: R/L: Bi 3+/3+ (low amplitude but with spread to finger flexors), Tri 2+/2+, Brachiorad 2+/2+, Patella 2+/2+, Ankle jerks 1+/2+, Lau's evaluation limited by artificial nails but there is a subtle right Hoffmans as well as b/l Tromner signs. Coordination: FTN without dysmetria. Gait: Able to stand with arms crossed without assistance. Normal narrow based gait with normal arm swing, turn, and stride length. Negative Romberg. Able to arise on the toes of each foot individually (more trouble on the right 2/2 to ankle fusion). IMPRESSION/PLAN: 1. Neuropathy - Vitamin B12; Future - Methylmalonic Acid, QN, P; Future - Free light chains; Future - Serum Immunofixation; Future - EMG NCV; Future 2. B12 deficiency - Vitamin B12; Future - Methylmalonic Acid, QN, P; Future 3. Hyperreflexia - MR cervical spine without contrast; Future - MR brain without contrast; Future Mary Leal is a 55 y.o. right-handed female with a relevant PMH of chronic insomnia and RLS (managed in sleep clinic), bipolar disorder, fibromyalgia, chronic constipation s/p total colectomy, prior C spine surgery in 2017, R CTS release ~30 years ago, and chronic migraine headaches (on CGRP inhibitors) presenting with BLE numbness, tingling, and weakness. 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 She then developed diffuse tingling in the entirety of all four extremities. EMG was notable for intact but low surals (lower on the right side, though she commonly has swelling it that foot and is s/p 4 right ankle surgeries), normal L but low R superP SNAPs (same explanation), and low left EBD CMAP and absent on the right (not TA studies done). No comment on any myopathic changes. Her exam has subtle hyperreflexia (including intact AJ reflexes), diffuse sensory changes to LT, breakaway diffusely, and intact vibrations at the toes. 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 Her low B12 could cause both SFN and myelopathy. Plan: -Get bloodwork done when able. -Schedule your EMG when able -Schedule your MRIs when able. Ingrid Bhat MD [employer] [facility] 07/15/25 I spent 62 minutes of total time on the day of the visit. This time was spent preparing for the visit, obtaining and reviewing any outside history/data, taking a history, performing an exam/evaluation, counseling and educating the patient/family about the diagnosis and plan, performing medical decision making, referring to and communicating with other health care referrals, independently interpreting results and documenting in the EMR, and coordinating care. Please see the additional documentation in this note for specific details. documented in this encounter [facility] 07-15-2025 Instructions Ingrid Bhat MD - 07/15/2025 9:00 AM EDT It was a pleasure seeing you in clinic today. Your neurologist: Dr. Ingrid Bhat Plan: -Get bloodwork done when able. -Schedule your EMG when able -Schedule your MRIs when able. Thank you for entrusting me with your care. Ingrid Bhat MD [employer] [facility] 07/15/25 documented in this encounter [facility] 07-09-2025 History of Present illness Narrative Images from the original note were not included. Rash Location: right leg/left forearm/buttock Duration: weeks Severity: moderate Quality: itchy Modifying Factors: worse with heat Associated symptoms: rednesss/scaling Treatments tried: none Current treatments: none Established patient FRED Barakat Lesions: Location: left neck Duration: months Quality: denies pain, denies itch, denies bleeding Modifying factors: aggravated by picking Associated symptoms: red Treatments: none All pertinent medical history, medications, and allergies were reviewed. General Exam: alert, oriented to person, place, and time, normal affect, well appearing Unaccompanied A focused exam completed based on patient reported problems, see below: Skin Exam 1. NEOPLASM OF UNSPECIFIED BEHAVIOR OF BONE, SOFT TISSUE, AND SKIN Left Supraclavicular Area Erythematous papule Lesion biopsy Type of biopsy: tangential Informed consent: discussed and consent obtained Informed consent comment: The risks and benefits of the biopsy were discussed. Risks include but are not limited to bleeding, infection, scarring, pain, and nerve damage. An opportunity to ask questions prior to the procedure was permitted and all questions were answered. Patient was prepped and draped in usual sterile fashion: area cleansed with alcohol. Anesthesia: the lesion was anesthetized in a standard fashion Anesthetic: 1% lidocaine w/ epinephrine 1-100,000 buffered w/ 8.4% NaHCO3 Instrument used: DermaBlade Hemostasis achieved with: electrodesiccation Outcome: patient tolerated procedure well Outcome comment: The specimen was placed in a prelabeled formalin container to be sent for pathology Post-procedure details: sterile dressing applied and wound care instructions given Post-procedure details comment: Emphasized need to contact clinic for any signs of infection, uncontrollable bleeding, or complications. Dressing type: bandage Additional details: Photo taken Amount of lidocaine used: 0.7 cc Specimen A - Dermatopathology exam Differential Diagnosis: SCC vs. BCC vs. ISK Check Margins: No Size of lesion: 0.7 x 0.7 cm Biopsy today, see procedure note. 2. RASH AND OTHER NONSPECIFIC SKIN ERUPTION Left Forearm - Anterior, Right Buttock [place] patches and papules Atopic dermatitis vs Allergic contact dermatitis due to poison brenda. Start clobetasol cream 0.05% using up to twice a day as needed when flared, hold when clear. Start Hydroxyzine 25 mg using once at night. Follow up in 4-6 weeks. If not improved, would offer biopsy. Related Medications clobetasol (Temovate) 0.05 % cream Apply (1g) to affected areas (arm/buttock), up to twice a day when flared, do not use one the face, groin, or underarms, 30 day supply hydrOXYzine HCl (Atarax) 25 MG tablet Take 1 tablet, by mouth, as needed for itching, 30 day supply. Next Visit: 4-6 weeks rash documented in this encounter [facility] 07-03-2025 History of Present illness Narrative Can you call pathology and see if the final duodenal biopsies are negative for disaccharidase deficiency as requested. documented in this encounter [facility] 07-03-2025 Miscellaneous Notes ----- Message from MAKI Grimaldo sent at 07/04/2025 9:05 AM EDT ----- Result on your desk for review ----- Message ----- From: Alberto Solis MD Sent: 07/03/2025 12:16 PM EDT [facility] Can you call pathology and see if the final duodenal biopsies are negative for disaccharidase deficiency as requested. ----- Message ----- From: Yoan, Background User Sent: 07/02/2025 2:32 PM EDT To: Alberto Solis MD Reviewed, but the disaccharide testing still is not on the pathology ----- Message from MAKI Grimaldo sent at 07/09/2025 1:48 PM EDT ----- Dr Yohannes Thompson left a voicemail, stating that a biopsy was not received to do the disaccharidase testing His extension is [id number] or cell: [phone] ----- Message ----- From: Alberto Solis MD Sent: 07/04/2025 11:07 AM EDT To: Re Mcghee RN ----- Message from Alberto Solis MD sent at 07/04/2025 11:07 AM EDT ----- ----- Message ----- From: Re Mcghee RN Sent: 07/04/2025 9:05 AM EDT To: Alberto Solis MD Result on your desk for review ----- Message ----- From: Alberto Solis MD Sent: 07/03/2025 12:16 PM EDT To: [facility] Gael Can you call pathology and see if the final duodenal biopsies are negative for disaccharidase deficiency as requested. ----- Message ----- From: Lab, Background User Sent: 07/02/2025 2:32 PM EDT To: Alberto Solis MD I am not sure who this person is, but the biopsy results were collected on June 27, per the pathology report, which requested that disaccharidase testing specifically, as that was what the patient was brought for , and we informed the lab. Can you contact them in see where the discrepancy is, there has a pathology report from that day and an endoscopy report, showing the the duodenal specimens were collected and sent appropriately. See my note----- Message from MAKI Grimaldo sent at 07/09/2025 1:48 PM EDT ----- Dr Yohannes Thompson left a voicemail, stating that a biopsy was not received to do the disaccharidase testing His extension is [id number] or cell: [phone] ----- Message ----- From: Alberto Solis MD Sent: 07/04/2025 11:07 AM EDT To: Re Mcghee RN ----- Message from Alberto Solis MD sent at 07/04/2025 11:07 AM EDT ----- ----- Message ----- From: Re Mcghee RN Sent: 07/04/2025 9:05 AM EDT To: Alberto Solis MD Result on your desk for review ----- Message ----- From: Alberto Solis MD Sent: 07/03/2025 12:16 PM EDT To: [facility] Gael Can you call pathology and see if the final duodenal biopsies are negative for disaccharidase deficiency as requested. ----- Message ----- From: Lab, Background User Sent: 07/02/2025 2:32 PM EDT To: Alberto Solis MD documented in this encounter [facility] 07-03-2025 Telephone encounter Note ----- Message from MAKI Grimaldo sent at 07/04/2025 9:05 AM EDT ----- Result on your desk for review ----- Message ----- From: Alberto Solis MD Sent: 07/03/2025 12:16 PM EDT To: [facility] Gael Can you call pathology and see if the final duodenal biopsies are negative for disaccharidase deficiency as requested. ----- Message ----- From: Lab, Background User Sent: 07/02/2025 2:32 PM EDT To: Alberto Solis MD [facility] 07-03-2025 Telephone encounter Note Reviewed, but the disaccharide testing still is not on the pathology [facility] 07-03-2025 Telephone encounter Note ----- Message from MAKI Grimaldo sent at 07/09/2025 1:48 PM EDT ----- Dr Yohannes Thompson left a voicemail, stating that a biopsy was not received to do the disaccharidase testing His extension is [id number] or cell: [phone] ----- Message ----- From: Alberto Solis MD Sent: 07/04/2025 11:07 AM EDT To: Re Mcghee RN ----- Message from Alberto Solis MD sent at 07/04/2025 11:07 AM EDT ----- ----- Message ----- From: Re Mcghee RN Sent: 07/04/2025 9:05 AM EDT To: Alberto Solis MD Result on your desk for review ----- Message ----- From: Alberto Solis MD Sent: 07/03/2025 12:16 PM EDT To: [facility] Gael Can you call pathology and see if the final duodenal biopsies are negative for disaccharidase deficiency as requested. ----- Message ----- From: Lab, Background User Sent: 07/02/2025 2:32 PM EDT To: Alberto Solis MD [facility] 07-03-2025 Telephone encounter Note I am not sure who this person is, but the biopsy results were collected on June 27, per the pathology report, which requested that disaccharidase testing specifically, as that was what the patient was brought for , and we informed the lab. Can you contact them in see where the discrepancy is, there has a pathology report from that day and an endoscopy report, showing the the duodenal specimens were collected and sent appropriately. [facility] 07-03-2025 Telephone encounter Note See my note----- Message from MAKI Grimaldo sent at 07/09/2025 1:48 PM EDT ----- Dr Yohannes Thompson left a voicemail, stating that a biopsy was not received to do the disaccharidase testing His extension is [id number] or cell: [phone] ----- Message ----- From: Alberto Solis MD Sent: 07/04/2025 11:07 AM EDT To: Re Mcghee RN ----- Message from Alberto Solis MD sent at 07/04/2025 11:07 AM EDT ----- ----- Message ----- From: Re Mcghee RN Sent: 07/04/2025 9:05 AM EDT To: Alberto Solis MD Result on your desk for review ----- Message ----- From: Alberto Solis MD Sent: 07/03/2025 12:16 PM EDT To: [facility] Gael Can you call pathology and see if the final duodenal biopsies are negative for disaccharidase deficiency as requested. ----- Message ----- From: Lab, Background User Sent: 07/02/2025 2:32 PM EDT To: Alberto Solis MD [facility] 06-24-2025 History of Present illness Narrative Images from the original note were not included. Dipti Acevedo, DO Obstetrics and Gynecology Mary Leal 1970 06/24/25 [id number] Yearly Wellness Exam Chief Complaint Patient presents [...] Outpatient Medications Medication Sig Dispense Refill Lolis Cervantesa 400 MG injection syringe INJECT INTRAMUSCULARLY ONCE [...] reconstruction FOOT TENDON SURGERY 11/13/2023 HYSTERECTOMY 2015 [facility] BS INTRAUTERINE DEVICE INSERTION 2013 Mirena [...] costovertebral angle tenderness, no obvious scoliosis/kyphosis. 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 documented in this encounter [facility] 06-06-2025 History of Present illness Narrative Images from [...] patient today documented in this encounter [facility] 06-06-2025 History of Present illness Narrative [facility] Initial Gastroenterology/Hepatology Consultation Note IDENTIFYING DATA [...] carcinoma (BCC) of chest (04/04/2023), Bipolar disorder ([facility]), Chronic interstitial cystitis (04/06/2023), Chronic sinusitis (07/07/2022), [...] office visit from this past October, from [facility] where she is seen for bloating, chronic [...] 03/20/2020 Performed by Alberto Solis MD at [facility] ENDOSCOPY EGD, DILATATION N/A 09/25/2020 Performed by Alberto Solis MD at [facility] ENDOSCOPY ENDOSCOPIC DIAGNOSTIC DRUG INDUCED SLEEP Bilateral 09/19/2023 Performed by Cullen Dawkins MD at [facility] FOOT SURGERY 06/25/2020 left foot surgery FOOT SURGERY Right 10/2022 and 05/2023 HYSTERECTOMY 2015 INSERTION STIMULATOR NERVE HYPOGLOSSAL Right 01/02/2024 Performed by Cullen Dawkins MD at [facility] LASER LINGUAL TONISILLECTOMY Circumferential 07/08/2021 Performed by Alexei Avila MD PhD at [facility] MRI FOOT LEFT NECK SURGERY 2017 PLANTAR FASCIECTOMY RELEASE PHARYNGEAL SCAR CPT 85671 Circumferential 07/08/2021 Performed by Alexei Avila MD PhD at [facility] RESECTION SUBMUCOSAL NASAL Bilateral 02/11/2021 Performed by Alexei Avila MD PhD at [facility] ROTATOR CUFF REPAIR Right SEPTOPLASTY Circumferential 02/11/2021 Performed by Alexei Avila MD PhD at [facility] TONSILLECTOMY Bilateral 02/11/2021 Performed by Alexei Avila MD PhD at [facility] TOTAL COLECTOMY 03/2022 uvuloplasty N/A 02/11/2021 Performed by Alexei Avila MD PhD at [facility] Family History Problem Relation Age of Onset [...] mouth every other day., Disp: , Rfl: lotqzwftxxc-agctcnszn-vzpdiaxd (TRELEGY ELLIPTA) 100-62.5-25 mcg blister with device, [...] 2.5 mg, nebulization, PRN, Gwendolyn Nicole Stroud, CAM MAKER-LOCKER ROOM SUPERVISOR PRNs: albuterol, 2.5 mg, PRN REVIEW OF [...] VITAMIN B12: Lab Results Component Value Date [id number] 05/13/2025 FOLATE: Lab Results Component Value [...] of Mary Leal. Alberto Solis MD, [place] [address] PH: [phone] documented in this encounter [facility] 06-04-2025 Miscellaneous Notes District Home Economics Agent received a call from the patient regarding test results. Patient would like a call k to discuss lab results please. Please advise. Contact natividad Hernandez [phone]. Thank you so much. Lab results were [...] daily. She should also be taking regular cvnd-kub-qvbatvk vitamin-D supplement every day. Did she have her EMG results sent to us? Thank you RN called and left VM for patient advising on results and recommendations. Also advised that we have been unsuccessful in getting EMG results if she could reach out to that office to get them faxed to our office. documented in this encounter [facility] 06-04-2025 Telephone encounter Note District Home Economics Agent received a call from the patient regarding test results. Patient would like a call k to discuss lab results please. Please advise. Contact natividad Hernandez [phone]. Thank you so much. [facility] Telephone encounter Note Lab results were normal, except for [...] daily. She should also be taking regular rxwi-cqp-wssdkow vitamin-D supplement every day. Did she have her EMG results sent to us? Thank you [facility] 06-04-2025 Telephone encounter Note RN called and left VM for patient advising on results and recommendations. Also advised that we have been unsuccessful in getting EMG results if she could reach out to that office to get them faxed to our office. [facility] 04-30-2025 Evaluation note Diagnosis Onset Date Resolution Lumbar radiculopathy acute April 30, 2025 3:53pm Polyneuropathy acute April 30, 2025 3:53pm [facility] Work Phone: [phone]) [phone] Telephone encounter Note* Telephone Encounter - Rosmery Horan - 02/24/2025 2:49 PM EDT Pt would like to know if WDB can increase her Estradiol dose because she is having more hot flashesduring the daytime. She takes the medication in the mornings. [id number] Miscellaneous Notes* Telephone Encounter - Rosmery Horan - 02/24/2025 2:49 PM EDT Pt would like to know if WDB can increase her Estradiol dose because she is having more hot flashesduring the daytime. She takes the medication in the mornings. Please contact documented in this encounterResearch [facility] [id number] Miscellaneous Notes* Telephone Encounter - Demi Rios Carter - 12/10/2024 4:16 PM EST Received call [...] preferred: 30 day [facility] [place] If already on preferred pharmacy list - [...] office about this. Patient's callback# if needed: [phone]. Patient stated she no longer has [place] and now has the following (informed patient we don't have this on our covered/non-covered list so I provided her with our tax ID# to check with insurance): Insurance Name: [employer] Medicare Dual Complete ID#: [id number] Grp#: [id number] RxGrp#: [id number] RxBIN#: [id number] RxPCN#: [id number] Provider Service Line phone#: [phone] * Telephone Encounter - Kim Acharya RN - 12/10/2024 4:16 PM EST Refill request for Emgality 120mg/ml verified in refill encounter 05/14/24. Pended to Dr. Christensen for review and signature Start date from last refill: 05/15/24 Next follow up: not yet scheduled [facility] Telephone encounter Note* Telephone Encounter - Demi [...] preferred: 30 day [facility] [place] If already on preferred pharmacy list - [...] office about this. Patient's callback# if needed: [phone]. Patient stated she no longer has [place] and now has the following (informed patient we don't have this on our covered/non-covered list so I provided her with our tax ID# to check with insurance): Insurance Name: [employer] Medicare Dual Complete ID#: [id number] Grp#: [id number] RxGrp#: [id number] RxBIN#: [id number] RxPCN#: [id number] Provider Service Line phone#: [phone] [facility]02-04-2025 Telephone encounter Note* Telephone Encounter - Kim Acharya RN - 12/10/2024 4:16 PM EST Refill request for Emgality 120mg/ml verified in refill encounter 05/14/24. Pended to Dr. Christensen for review and signature Start date from last refill: 05/15/24 Next follow up: not yet scheduled [facility]01-15-2025 Evaluation note* Diagnosis Onset Date Resolution Status Admit Date Cervical radiculopathy acute [facility] 2024 1:13pm [facility] Work Phone: 1(361) 236-491301-14-2025 History of Present illness Narrative* STELLA Espinal [...] year, skin check documented in this encounterResearch [facility] [id number] Nuclear medicine Diagnostic study [facility] [place] [address] Nuclear Medicine Report Signed Patient: Mary Leal MR#: [id number] : 1970 Acct:[id number] Age/Sex: 54 / F ADM Date: 5 Loc: [place] Room: Type: [facility] Attending Dr: Padmaja Llamas MD Copies to: Quinton Melendez Jr, DO Padmaja Llamas MD~ Ordering Provider: Padmaja Llamas MD Date of Service: 11/14/24 [place] gastric [...] Melendez Jr., D.O.11/14/2024 1:54 PM Dictation Location: [place] [address] Transcribed By: MARIO 11/14/24 1354 Dictated By: Quinton Melendez Jr, DO 11/14/24 1354 Signed By: 11/14/24 1354 [facility]01-07-2025 History of Present illness Narrative * [...] to the clinic 19 days status post fashion editor 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 Eating a regular diet with difficulty. [...] Review Audit Reviewed by Nida Toro MA (Graphics Manager) on 11/12/24 at 0827 Medication Order Taking? Sig Documenting Provider Last Dose Status Abilify Maintena 300 MG injection syringe [id number] inject INTRAMUSCULARLY ONCE A MONTH (BRING TO OFFICE FOR PROVIDER TO ADMINISTER) Active albuterol HFA 90 mcg/act inhaler [id number] Inhale 2 puffs every 4 (four) hours if needed for wheezing Eliceo Gómez DO 10/19/24 1837 atenolol (Tenormin) 50 MG tablet [id number] Take 1 tablet (50 mg) by mouth Daily Eliceo Gómez DO Active cholecalciferol (Vitamin D-3) 125 MCG (5000 UT) capsule [id number] Take 125 mcg by mouth Daily Dipti Acevedo DO Active colestipol (Colestid) 1 g tablet [id number] Take 1 g by mouth in the morning and 1 g in the evening. Dipti Acevedo DO Active Daridorexant HCl (Quviviq) 50 MG tablet [id number] Take 50 mg by mouth at bedtime Eliceo Gómez DOActive estradiol (Estrace) 0.1 MG/GM vaginal cream [id number] APPLY 0.5G VAGINALLY TWICE WEEKLY. Dipti Acevedo DO Active estradiol (Estrace) 1 MG tablet [id number] Take 1 tablet (1 mg) by mouth Daily Dipti Acevedo DO Active ferrous sulfate 325 (65 Fe) MG tablet [id number] Take 325 mg by mouth every other day Ron King, DEMARCUS Active fluvoxaMINE (Luvox) 50 MG tablet [id number] Take 50 mg by mouth at bedtime Dipti Acevedo DO Active galcanezumab (Emgality) 120 MG/ML auto-injector [id number] Inject 120 mg under the skin every 30 (thirty) days Dipti Acevedo DO Active L-Theanine 200 MG capsule [id number] Take 1 capsule by mouth Daily Adriana Cruz MD Active losartan (Cozaar) 25 MG tablet [id number] Take 1 tablet (25 mg) by mouth Daily Eliceo Gómez DO Active methylphenidate ER (Concerta) 54 MG CR tablet [id number] Take 54 mg by mouth Daily Eliceo Gómez DO Active mirabegron ER (Myrbetriq) 50 MG 24 hr tablet [id number] Take 1 tablet (50 mg) by mouth at bedtime Do not crush, chew, or split. Dipti Acevedo DO Active Multiple Vitamin (Daily-Elisa Multivitamin) tablet [id number] Yes Take 1 tablet by mouth Daily WilliamD Mookie, DO Active omeprazole (PriLOSEC) [address] capsule [id number] Take 40 mg by mouth in the morning. Active Quviviq 25 MG tablet [id number] TAKE 1 TABLET BY MOUTH BEDTIME ( NEEDED) FOR SLEEP Dipti Acevedo, DO Active rOPINIRole (Requip) 1 MG tablet [id number] Take 1 tablet (1 mg) by mouth in the morning. Eliceo Gómez, DO Active rOPINIRole (Requip) 2 MG tablet [id number] Take 1 tablet (2 mg) by mouth at bedtime Eliceo Gómez DO Active Trelegy Ellipta 100-62.5-25 MCG/ACT aerosol powder [id number] INHALE 1 PUFF BY MOUTH DAILY Eliceo Gómez DO Active triamcinolone (Kenalog) 0.1 % cream [id number] Apply topically 2 (two) times a day Dipti Acevedo, DO Active Past Medical History: Diagnosis Date ADHD (attention deficit hyperactivity disorder) ([facility]) 1994 Asthma ([facility]) Basal cell carcinoma right chest Colon polyp Compressed cervical disc Cystocele 2021 Depression (CMS/HCC) Difficulty walking 05/12/23 Eczema 2022 Endometriosis 2015 Fissure, anal Gastroparesis GERD (gastroesophageal reflux disease) 1994 Hormone disorder 2018 Hypertension (CMS/HCC) 1999 Migraine (CMS/HCC) OCD (obsessive compulsive disorder) ([facility]) Panic attack ([facility]) 04/28 Rectocele 2021 RLS (restless legs syndrome) [...] reconstruction FOOT TENDON SURGERY 11/13/2023 HYSTERECTOMY 2014 [facility] BS INTRAUTERINE DEVICE INSERTION 2012 Mirena [...] and rhythm Lungs: b/l clear Female genitalia: Emergency Medical Technician Basic in room, no evidence of infection, cuff [...] 11/12/24 Time 5:00PM. documented in this encounterResearch Medical Center-Bro[facility] [id number] History of Present illness Narrative* Wendy Colon [...] to the clinic 4 days status post fashion editor surgery. Eating a regular diet without difficulty. [...] Review Audit Reviewed by Nida Toro MA (Graphics Manager) on 10/28/24 at 1502 Medication Order Taking? Sig Documenting Provider Last Dose Status Abilify Maintena 300 MG injection syringe [id number] inject INTRAMUSCULARLY ONCE A MONTH (BRING TO OFFICE FOR PROVIDER TO ADMINISTER) Active albuterol HFA 90 mcg/act inhaler [id number] Inhale 2 puffs every 4 (four) hours if needed for wheezing Eliceo Gómez, DO 10/19/24 0889 atenolol (Tenormin) 50 MG tablet [id number] Take 1 tablet (50 mg) by mouth Daily Eliceo Gómez DO Active cholecalciferol (Vitamin D-3) 125 MCG (5000 UT) capsule [id number] Take 125 mcg by mouth Daily Dipti Acevedo DO Active colestipol (Colestid) 1 g tablet [id number] Yes Take 1 g by mouth in the morning and 1 g in the evening. Dipti Acevedo DO Active Daridorexant HCl (Quviviq) 50 MG tablet [id number] Take 50 mg by mouth at bedtime Eliceo Gómez DOActive Discontinued 10/22/24 0842 estradiol (Estrace) 0.1 MG/GM vaginal cream [id number] APPLY 0.5G VAGINALLY TWICE WEEKLY. Dipti Acevedo DO Active estradiol (Estrace) 1 MG tablet [id number] Take 1 tablet (1 mg) by mouth Daily Dipti Acevedo DO Active ferrous sulfate 325 (65 Fe) MG tablet [id number] Take 325 mg by mouth every other day Ron King NP Active fluvoxaMINE (Luvox) 50 MG tablet [id number] Take 50 mg by mouth at bedtime Dipti Acevedo DO Active galcanezumab (Emgality) 120 MG/ML auto-injector [id number] Inject 120 mg under the skin every 30 (thirty) days Dipti Acevedo DO Active L-Theanine 200 MG capsule [id number] Take 1 capsule by mouth Daily Adriana Cruz MD Active losartan (Cozaar) 25 MG tablet [id number] Take 1 tablet (25 mg) by mouth Daily Eliceo Gómez DO Active methylphenidate ER (Concerta) 54 MG CR tablet [id number] Take 54 mg by mouth Daily Eliceo Gómez DO Active mirabegron ER (Myrbetriq) 50 MG 24 hr tablet [id number] Take 1 tablet (50 mg) by mouth at bedtime Do not crush, chew, or split. Dipti Acevedo DO Active omeprazole (PriLOSEC) [address] capsule [id number] Take 40 mg by mouth in the morning. Active Quviviq 25 MG tablet [id number] Yes TAKE 1 TABLET BY MOUTH BEDTIME ( NEEDED) FOR SLEEP Dipti Acevedo DO Active rOPINIRole (Requip) 1 MG tablet [id number] Take 1 tablet (1 mg) by mouth in the morning. Eliceo Gómez DO Active rOPINIRole (Requip) 2 MG tablet [id number] Take 1 tablet (2 mg) by mouth at bedtime Eliceo Gómez DO Active Trelegy Ellipta 100-62.5-25 MCG/ACT aerosol powder [id number] INHALE 1 PUFF BY MOUTH DAILY Eliceo Gómez DO Active triamcinolone (Kenalog) 0.1 % cream [id number] Apply topically 2 (two) times a day Dipti Acevedo DO Active Past Medical History: Diagnosis Date ADHD (attention deficit hyperactivity disorder) (CMS/HCC) 1994 Asthma (CMS/HCC) Basal cell carcinoma right chest Colon polyp Compressed cervical disc Cystocele 2021 Depression (CMS/HCC) Difficulty walking 05/12/23 Eczema 2022 Endometriosis 2014 Fissure, anal Gastroparesis GERD (gastroesophageal reflux disease) 1994 Hormone disorder 2019 Hypertension ([facility]) 1999 Migraine ([facility] OCD (obsessive compulsive disorder) ([facility]) Panic attack ([facility]) 04/28 Rectocele 2021 RLS (restless legs syndrome) [...] reconstruction FOOT TENDON SURGERY 11/13/2023 HYSTERECTOMY 2014 [facility] BS INTRAUTERINE DEVICE INSERTION 2013 Mirena [...] at baseline unless noted below. Female genitalia: Emergency Medical Technician Basic in room, no evidence of infection, cuff [...] 10/28/24 Time 5:00PM. documented in this encounterResearch Medical Center-Bro[facility]side [id number] History of Present illness Narrative* Radha Cardenas [...] gain. She has an appointment with a public relations specialist 10/28. She was started on buspar for uncontrolled anxiety by her PCP. Loose stools 4-8 times a day Wilkes 6. Occasional BRBPR. Reglan increased diarrhea, does [...] Department of Internal Medicine [facility] Pager [phone] or Epic Chat with questions * Adriana Peace MA - 10/23/2024 11:00 AM EST This writer editor verified the patient's name and . * [...] and gastroparesis. At interval, persistent loose stool Wilkes type 6 about 5-6 times daily with [...] Leal was offered and accepted a Medical Emergency Medical Technician Basic for this exam/procedure/test 10/23/2024.Name of Medical Emergency Medical Technician Basic: Tania Riggs [facility] Instructions* Patient Instructions* Radha Cardenas MD - [...] will either call you, send you a Submitnet message, or mail you aletter with the results of your tests within 1-2 weeks after you have completed your tests. If you do not hear from our office, please call the clinic to receive your results at [phone]. As a reminder, [facility] should not be used as a form of communication that replaces an office visit. It can be used for reminders and clarifications If you need to fax old records in, please fax to [phone]. If you have any concerning symptoms, please seek immediate medical attention. [facility]-2024 History of Present illness Narrative* Wendy Colon MA - 10/15/2024 3:30 PM EST Images from the original note were not included. Dipti Acevedo, DO Obstetrics and Gynecology Mary Leal 1970 10/15/24 [id number] Pre Operative Exam Chief Complaint Patient presents [...] Take 50 mg by mouth at bedtime Gerardofsteven Maintena 300 MG injection syringe inject INTRAMUSCULARLY [...] reconstruction FOOT TENDON SURGERY 11/13/2023 HYSTERECTOMY 2015 [facility] INTRAUTERINE DEVICE INSERTION 2013 Mirena OTHER SURGICAL HISTORY scar tissue removed from tonsils ROTATOR CUFF REPAIR Right 10/2016 SPINE SURGERY 2017 TONSILLECTOMY 02/11/2021 TUBAL LIGATION Bilateral 2006 Past Medical History: Diagnosis Date ADHD (attention deficit hyperactivity disorder) ([facility]) 1994 Asthma ([facility]) Basal cell carcinoma right chest Colon polyp Compressed cervical disc Cystocele 2021 Depression (CMS/HCC) Difficulty walking 05/12/23 Eczema 2022 Endometriosis 2015 Fissure, anal Gastroparesis GERD (gastroesophageal reflux disease) 1994 Hormone disorder 2018 Hypertension (CMS/HCC) 2000 Migraine (CMS/HCC) OCD (obsessive compulsive disorder) ([facility]) Panic attack ([facility]) 04/28 Rectocele 2021 RLS (restless legs syndrome) [...] costovertebral angle tenderness, no obvious scoliosis/kyphosis. FEMALE GENITOURINARY:pharmacy innovation assistant in room - good hormone - cuff [...] 10/15/24 Time 5:00PM. documented in this encounterResearch Medical Center-Bro[facility] [id number] Evaluation note* Diagnosis Onset Date Resolution Status Admit Date Cervical radiculopathy acute De cember 2023 8:25am Cervical radiculopathy acute [facility] 2024 1:13pm [facility] Work Phone: 1(192) 302-938311-22-2024 History of Present illness Narrative* Wendy Colon MA - 09/27/2024 11:45 AM EST Images from the original note were not included. Dipti Acevedo, DO Obstetrics and Gynecology Mary Leal 1970 09/27/24 [id number] Exam Chief Complaint Patient presents with Follow-up [...] reconstruction FOOT TENDON SURGERY 11/13/2023 HYSTERECTOMY 2015 [facility] INTRAUTERINE DEVICE INSERTION 2013 Mirena OTHER SURGICAL HISTORY scar tissue removed from tonsils ROTATOR CUFF REPAIR Right 10/2016 SPINE SURGERY 2017 TONSILLECTOMY 02/11/2021 TUBAL LIGATION Bilateral 2006 Past Medical History: Diagnosis Date ADHD (attention deficit hyperactivity disorder) ([facility]) 1994 Asthma ([facility]) Basal cell carcinoma right chest Colon polyp Compressed cervical disc Cystocele 2021 Depression ([facility]) Difficulty walking 05/12/23 Eczema 2022 Endometriosis 2014 Fissure, anal Gastroparesis GERD (gastroesophageal reflux disease) 1994 Hormone disorder 2018 Hypertension ([facility] [facility]) 1999 Migraine ([facility]) OCD (obsessive compulsive disorder) ([facility]) Panic attack ([facility]) 04/28 Rectocele 2021 RLS (restless legs syndrome) Urinary incontinence 2022 Varicella 1984 Visual impairment 2010 ROS See HPI EXAM GENERAL EXAMINATION alert oriented well developed, well nourished. FEMALE GENITOURINARY:pharmacy innovation assistant in room, estradiol cream in vault. Granulation [...] in vault today. Educated on granulation proud flesh, her hysterectomy was 2014. If granulation continues [...] 09/27/24 Time 5:00PM. documented in this encounterResearch Medical Center-Brookside [id number] History of Present illness Narrative* Ron King [...] disorder) without hyperactivity Allergic rhinitis Anxiety Asthma ([facility]) Atopic dermatitis Basal cell carcinoma (BCC) of chest Bipolar affective disorder, most recent episode mixed ([facility]) Degenerative disc disease, cervical Facet arthritis of cervical region Gastro-esophageal reflux disease without esophagitis Gastroparesis Hot flashes due to menopause Hyperlipidemia ([facility]) Hypertension ([facility]) Insomnia Mood swing Restless legs syndrome Tarsal tunnel syndrome Tension headache Vitamin D deficiency Arthritis B12 deficiency Bipolar 1 disorder ([facility]) Chronic cluster headache, not intractable Chronic idiopathic constipation Chronic interstitial cystitis Genitourinary syndrome of menopause Incontinence Migraine ([facility]) CHUCKIE (obstructive sleep apnea) Other fatigue Overactive [...] after colorectal surgery JOLEEN (generalized anxiety disorder) ([facility]) Headache History of 2019 novel coronavirus disease (COVID-19) Impingement syndrome of right shoulder Increased frequency of urination Lingual tonsil hypertrophy Major depressive disorder, recurrent, moderate ([facility]) Nasal congestion Nausea Partial nontraumatic rupture of right rotator cuff Poor urinary stream Stress incontinence in female Unspecified inflammatory spondylopathy, cervical region ([facility]) Urinary urgency Wheezing Pain due to internal orthopedic prosthetic devices, implants and grafts, initial encounter ([facility]) Jamal Past Medical History: Past Medical History: Diagnosis Date ADHD (attention deficit hyperactivity disorder) ([facility]) 1994 Asthma ([facility]) Basal cell carcinoma right chest Colon polyp Compressed cervical disc Cystocele 2021 Depression ([facility]) Difficulty walking 05/12/23 Eczema 2022 Endometriosis 2015 Fissure, anal Gastroparesis GERD (gastroesophageal reflux disease) 1995 Hormone disorder 2019 Hypertension ([facility]) 2000 Migraine ([facility]) OCD (obsessive compulsive disorder) ([facility]) Panic attack ([facility]) 04/28 Rectocele 2021 RLS (restless legs syndrome) [...] reconstruction FOOT TENDON SURGERY 11/13/2023 HYSTERECTOMY 2015 [facility] BS INTRAUTERINE DEVICE INSERTION 2013 Mirena [...] 10 min Stress: Stress Concern Present (05/01/2024) [place] [employer] - Occupational Stress Questionnaire Feeling of Stress : Rather much Social Connections: Socially Isolated (05/01/2024) Social Connection and Isolation Panel [NHANES] Frequency of Communication with Friends and Family: More than three times a week Frequency of Social Gatherings with Friends and Family: More than three times a week Attends L[employer] Services: Never Active Member of Clubs or Organizations: No Attends Club or Organization Meetings: Never Marital Status: Intimate Partner Violence: Not At Risk (06/23/2023) Received from [facility] Safety Threatened: Not on file [...] fail to improve. documented in this encounterResearch Medical Center-Brookside [id number] History of Present illness Narrative* Wendy Colon MA - 09/24/2024 8:15 AM EST Images from the original note were not included. Dipti Acevedo, DO Obstetrics and Gynecology Mary Leal 1970 09/24/24 [id number] Exam Chief Complaint Patient presents with Gynecologic [...] reconstruction FOOT TENDON SURGERY 11/13/2023 HYSTERECTOMY 2014 [facility] INTRAUTERINE DEVICE INSERTION 2012 Mirena OTHER SURGICAL HISTORY scar tissue removed from tonsils ROTATOR CUFF REPAIR Right 10/2016 SPINE SURGERY 2017 TONSILLECTOMY 02/11/2021 TUBAL LIGATION Bilateral 2006 Past Medical History: Diagnosis Date ADHD (attention deficit hyperactivity disorder) ([facility]) 1994 Asthma ([facility]) Basal cell carcinoma right chest Colon polyp Compressed cervical disc Cystocele 2021 Depression ([facility]) Difficulty walking 05/12/23 Eczema 2022 Endometriosis 2015 Fissure, anal Gastroparesis GERD (gastroesophageal reflux disease) 1994 Hormone disorder 2019 Hypertension ([facility]) 2000 Migraine ([facility]) OCD (obsessive compulsive disorder) ([facility]) Panic attack ([facility]) 04/28 Rectocele 2021 RLS (restless legs syndrome) Urinary incontinence 2022 Varicella 1984 Visual impairment 2010 ROS See HPI EXAM GENERAL EXAMINATION alert oriented well developed, well nourished. HEAD: normocephalic atraumatic. EYES: sclera anicteric. EARS: no obvious hearing deficit. FEMALE GENITOURINARY:pharmacy innovation assistant in room -hymnal defect, estradiol cream in [...] 09/24/24 Time 5:00PM. documented in this encounterResearch Medical Center-Brookside [id number] Evaluation note* Diagnosis Onset Date Resolution Status Admit Date Cervical radiculopathy acute No vember 2023 2:53pm Cervical radiculopathy acute De cember 2023 8:25am [facility] Work Phone: 1(775) 148-868211-11-2024 Evaluation note* Diagnosis Onset Date Resolution Status Admit Date Cervical radiculopathy acute No vember 2023 2:53pm Cervical radiculopathy acute De cember 2023 8:25am Cervical radiculopathy acute Ja nuary 2024 1:13pm [facility] Work Phone: 1(891) 336-340910-30-2024 History of Present illness Narrative* Wendy Colon MA - 09/04/2024 3:15 PM EDT Images from the original note were not included. Dipti Acevedo, DO Obstetrics and Gynecology Mary Leal 1970 09/04/24 [id number] Exam Chief Complaint Patient presents with Follow-up [...] reconstruction FOOT TENDON SURGERY 11/13/2023 HYSTERECTOMY 2015 [facility] INTRAUTERINE DEVICE INSERTION 2013 Mirena OTHER [...] anicteric. EARS: no obvious hearing deficit. FEMALE GENITOURINARY:pharmacy innovation assistant in room -Erythema, and edema- chronic inflammatory [...] 09/04/24 Time 5:00PM. documented in this encounterResearch Medical Center-Brookside [id number] History of Present illness Narrative* Ron King NP - 09/04/2024 2:40 PM EDT Images from the original note were not included. SUBJECTIVE: Mary Leal is a 54 y.o. female presents with chief complaint of No chief complaint on file. Pt presents to discuss her anxiety. Pt notes that she is in between therapy at this time, is going to est with [facility] in the first few weeks of [...] disorder) without hyperactivity Allergic rhinitis Anxiety Asthma ([facility]) Atopic dermatitis Basal cell carcinoma (BCC) of chest Bipolar affective disorder, most recent episode mixed ([facility]) Degenerative disc disease, cervical Facet arthritis of cervical region Gastro-esophageal reflux disease without esophagitis Gastroparesis Hot flashes due to menopause Hyperlipidemia ([facility]) Hypertension ([facility]) Insomnia Mood swing Restless legs syndrome Tarsal tunnel syndrome Tension headache Vitamin D deficiency Arthritis B12 deficiency Bipolar 1 disorder ([facility]) Chronic cluster headache, not intractable Chronic idiopathic constipation Chronic interstitial cystitis Genitourinary syndrome of menopause Incontinence Migraine ([facility]) CHUCKIE (obstructive sleep apnea) Other fatigue Overactive [...] after colorectal surgery JOLEEN (generalized anxiety disorder) ([facility]) Headache History of 2019 novel coronavirus disease (COVID-19) Impingement syndrome of right shoulder Increased frequency of urination Lingual tonsil hypertrophy Major depressive disorder, recurrent, moderate ([facility]) Nasal congestion Nausea Partial nontraumatic rupture of right rotator cuff Poor urinary stream Stress incontinence in female Unspecified inflammatory spondylopathy, cervical region ([facility]) Urinary urgency Wheezing Pain due to internal orthopedic prosthetic devices, implants and grafts, initial encounter ([facility]) [facility] Past Medical History: Past Medical History: Diagnosis Date ADHD (attention deficit hyperactivity disorder) ([facility]) 1994 Asthma ([facility]) Basal cell carcinoma right chest Colon polyp Compressed cervical disc Cystocele 2021 Depression ([facility]) Difficulty walking 05/12/23 Eczema 2022 Endometriosis 2015 Fissure, anal Gastroparesis GERD (gastroesophageal reflux disease) 1995 Hormone disorder 2019 Hypertension ([facility]) 2000 Migraine ([facility]) OCD (obsessive compulsive disorder) ([facility]) Panic attack ([facility]) 04/28 Rectocele 2021 RLS (restless legs syndrome) [...] reconstruction FOOT TENDON SURGERY 11/13/2023 HYSTERECTOMY 2014 [facility] BS INTRAUTERINE DEVICE INSERTION 2013 Mirena [...] 10 min Stress: Stress Concern Present (05/01/2024) [place] [employer] - Occupational Stress Questionnaire Feeling of Stress : Rather much Social Connections: Socially Isolated (05/01/2024) Social Connection and Isolation Panel [NHANES] Frequency of Communication with Friends and Family: More than three times a week Frequency of Social Gatherings with Friends and Family: More than three times a week Attends [employer] Services: Never Active Member of Clubs or Organizations: No Attends Club or Organization Meetings: Never Marital Status: Intimate Partner Violence: Not At Risk (06/23/2023) Received from [facility] Safety Threatened: Not on file [...] 10/02/2024) for PRN. documented in this encounterResearch Medical Center-Brookside [id number] History of Present illness Narrative* Tania Riggs [...] subtotal colectomy, who presents today to the [facility] for chronic abdominal [...] four hours. Ms. Leal sees a local prize fighter. She is worried about parasites with the loose stools, and SIBOdue to bloating. Ms. Leal has a history of severe reflux esophagitis but is not currently taking PPI she stopped due to concerns of side effects. She is taking an over the counter supplement root extract recommended by her local prize fighter. She does not take a multivitamin. Last [...] with food. 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 She is not currently following with prize fighter or counselor and is open to both. [...] subtotal colectomy, who presents today to the [facility] for chronic abdominal [...] Department of Internal Medicine [facility] Pager [phone] or Epic Chat with questions * Padmaja Llamas MD, PhD - 08/07/2024 9:00 AM EDT Attending: Padmaaj Llamas MD, PhD Patient was seen and [...] G-POEM if clinically indicated. documented in this [facility]10-02-2024 Instructions* Patient Instructions* Radha Cardenas MD - 08/07/2024 9:00 AM EDT It was a pleasure to see you today. The following are your instructions: - referral to GI specific cookie padder, will request video/telephone visit for you - referral to psychology to help you heal your relationship with food - continue omeprazole, vitamin D, and iron repletion - repeat H2 breath testing as able If you had labs drawn, I or my team will either call you, send you a Submitnet message, or mail you aletter with the results of your tests within 1-2 weeks after you have completed your tests. If you do not hear from our office, please call the clinic to receive your results at [phone]. As a reminder, [facility] MyChart should not be used as a form of communication that replaces an office visit. It can be used for reminders and clarifications If you need to fax old records in, please fax to [phone]. If you have any concerning symptoms, please seek immediate medical attention. documented in this [facility]09-26-2024 History of Present illness Narrative* Eliceo [...] cystitis Genitourinary syndrome of menopause Incontinence Migraine ([facility]) CHUCKIE (obstructive sleep apnea) Other fatigue Overactive [...] after colorectal surgery JOLEEN (generalized anxiety disorder) ([facility]) Headache History of 2019 novel coronavirus disease (COVID-19) Impingement syndrome of right shoulder Increased frequency of urination Lingual tonsil hypertrophy Major depressive disorder, recurrent, moderate (HCC) ([facility]) Nasal congestion Nausea Partial nontraumatic rupture of right rotator cuff Poor urinary stream Stress incontinence in female Unspecified inflammatory spondylopathy, cervical region ([facility]) Urinary urgency Wheezing Pain due to internal orthopedic prosthetic devices, implants and grafts, initial encounter ([facility]) Jamal Past Medical History: Past Medical History: Diagnosis Date ADHD (attention deficit hyperactivity disorder) ([facility]) 1994 Asthma ([facility]) Basal cell carcinoma right chest Colon polyp Compressed cervical disc Cystocele 2021 Depression ([facility]) Difficulty walking 05/12/23 Eczema 2022 Endometriosis 2015 Fissure, anal Gastroparesis GERD (gastroesophageal reflux disease) 1995 Hormone disorder 2019 Hypertension ([facility]) 2000 Migraine ([facility]) OCD (obsessive compulsive disorder) ([facility]) Panic attack ([facility]) 04/28 Rectocele 2021 RLS (restless legs syndrome) [...] 10 min Stress: Stress Concern Present (05/01/2024) [place] [employer] - Occupational Stress Questionnaire Feeling of Stress : Rather much Social Connections: Socially Isolated (05/01/2024) Social Connection and Isolation Panel [NHANES] Frequency of Communication with Friends and Family: More than three times a week Frequency of Social Gatherings with Friends and Family: More than three times a week Attends [employer] Day Services: Never Active Member of Clubs or Organizations: No Attends Club or Organization Meetings: Never Marital Status: Intimate Partner Violence: Not At Risk (06/23/2023) [facility] Safety Threatened: Not on file [...] and/or persist despite treatment. - nystatin (Mycostatin) [id number] UNIT/ML suspension; Take 5 mL (500,000 Units) [...] pain or mild pain, Disp: , Rfl: Lolis Maintena 300 MG [...] mouth every other day, Disp: , Rfl: Xjblytxufqd-Qptndkoqp-Mewndy 100-62.5-25 MCG/ACT aerosol powder , Inhale 1 [...] tablet, Rfl: 1 documented in this encounterResearch Medical Center-Brookside [id number] NoteSLEEP/NEUROLOGY CLINIC FOLLOW-UP EVALUATION Date of Evaluation: [...] regarding sleep. She eventually was evaluated at [facility] sleep center with Dr. Sherman and [...] was also evaluated at sleep medicine at [facility], and saw Dr. Yoni Tuttle on 10/14/2022. She was subsequently started on auto-CPAP 5-15 cm H2O with nasal mask in December 2022. She uses the CPAP for about a week, and had severe intolerance and felt suffocated. She had severe pressure and mask intolerance, and despite changes in masks and pressure settings she was not able to tolera (more content not included)...[facility] 07-11-2024 History of Present illness Narrative* Eliceo [...] after colorectal surgery JOLEEN (generalized anxiety disorder) ([facility]) Headache History of 2018 novel coronavirus disease (COVID-19) Impingement syndrome of right shoulder Increased frequency of urination Lingual tonsil hypertrophy Major depressive disorder, recurrent, moderate (HCC) ([facility]) Nasal congestion Nausea Partial nontraumatic rupture of right rotator cuff Poor urinary stream Stress incontinence in female Unspecified inflammatory spondylopathy, cervical region ([facility]) Urinary urgency Wheezing Pain due to internal orthopedic prosthetic devices, implants and grafts, initial encounter ([facility]) [place] Past Medical History: Past Medical History: Diagnosis Date ADHD (attention deficit hyperactivity disorder) ([facility]) 1994 Asthma ([facility]) Basal cell carcinoma right chest Colon polyp Compressed cervical disc Cystocele 2021 Depression ([facility]) Difficulty walking 05/12/23 Eczema 2022 Endometriosis 2015 Fissure, anal Gastroparesis GERD (gastroesophageal reflux disease) 1994 Hormone disorder 2019 Hypertension ([facility]) 2000 Migraine ([facility] OCD (obsessive compulsive disorder) ([facility]) Panic attack ([facility]) 04/28 Rectocele 2021 RLS (restless legs syndrome) [...] reconstruction FOOT TENDON SURGERY 11/13/2023 HYSTERECTOMY 2015 [facility] BS INTRAUTERINE DEVICE INSERTION 2013 Mirena [...] 10 min Stress: Stress Concern Present (05/01/2024) [place] [employer] - Occupational Stress Questionnaire Feeling of Stress : Rather much Social Connections: Socially Isolated (05/01/2024) Social Connection and Isolation Panel [NHANES] Frequency of Communication with Friends and Family: More than three times a week Frequency of Social Gatherings with Friends and Family: More than three times a week Attends [employer] Services: Never Active Member of Clubs or Organizations: No Attends Club or Organization Meetings: Never Marital Status: Intimate Partner Violence: Not At Risk (06/23/2023) [facility] Safety Threatened: Not on file Insulted: Not [...] SM ANTIBODY <1.0 NEG <1.0 NEGATIVE AI SM/PROGRAM OR PROJECT ADMINISTRATOR ANTIBODY <1.0 NEG <1.0 NEGATIVE AI SJOGREN'S [...] Mild intermittent asthma, unspecified whether complicated (CMS/HCC) Patient advised to return if symptoms worsen and/or persist despite treatment.improved significantly, continue current treatment - albuterol HFA 90 mcg/act inhaler; Inhale 2 puffs every 4 (four) hours if needed for wheezing - Xxfnlqeemnr-Ldqpzlghq-Llqsur 100-62.5-25 MCG/ACT aerosol powder ; Inhale 1 [...] mouth every other day, Disp: , Rfl: Gnmlqfbmzhk-Filzwmgsm-Bkguqg (Trelegy Ellipta) 100-62.5-25 MCG/ACT aerosol powder , Inhale, Disp: ,Rfl: Xkfxasvfehb-Twntdyqci-Doahip 100-62.5-25 MCG/ACT aerosol powder , Inhale 1 [...] Disp: 30 tablet, Rfl: 11 nystatin (Mycostatin) [id number] UNIT/ML suspension, Take 5 mL by mouth [...] Disp: , Rfl: documented in this encounterResearch Medical Center-Brookside [id number] History of Present illness Narrative* Kathie Amezquita, ROGELIOM - 06/27/2024 9:45 AM EDT Images from [...] follow-up if needed. documented in this encounterResearch Medical Center-Brookside [id number] Telephone encounter Note* Telephone Encounter - Serenity Joseph MA - 06/12/2024 2:19 PM EDT LDH=11/30/22 MEREDITH=10/11/22 Patient will need a follow up appointment For future refills [facility]08-07-2024 Miscellaneous Notes* Telephone Encounter - Serenity Joseph MA - 06/12/2024 2:19 PM EDT LDH=11/30/22 MEREDITH=10/11/22 Patient will need a follow up appointment For future refills [facility] Miscellaneous Notes* Telephone Encounter - Sandip Chavira [...] Patient also is switching pharmacies: [facility] in [address] [place] [phone] * Telephone Encounter - Adriana Barkley RN [...] and maintenance dose. Prior auth submitted to [facility] via [facility]. [place]: [id number] [facility] Telephone encounter Note* Telephone Encounter - Sandip Chavira - 05/14/2024 8:15 AM EDT Patient stated as of 8/1/24, she will have a different insurance. The new insurance will not pay for medication fremanezumab-vfrm (AJOVY AUTOINJECTOR) 225 mg/1.5 mL , but will pay for EMGALITY. Asking if she could go back to EMGALITY and this medication works better for her. Patient also is switching pharmacies: [facility] [id number] [facility]07-09-2024 Telephone encounter Note* Telephone Encounter - Adriana Barkley RN - 05/14/2024 8:15 AM EDT Added new pharmacy to patient's chart. Please advise on medication changes. [facility]07-09-2024 Telephone encounter Note* Telephone Encounter - Pauline Christensen MD - 05/14/2024 8:15 AM EDT Yes, ok to switch to Emgalty- she will need loading dose of 120 mg x 2 injections = 240 mg for the first month, and afterwards 120 mg Q4 weeks maintenance. Thanks [facility]07-09-2024 Telephone encounter Note* Telephone Encounter - Adriana Barkley RN - 05/14/2024 8:15 AM EDT Orders placed for review and signature by physician for Emgality loading and maintenance dose. Prior auth submitted to [facility] [facility]. [place]: [id number] [facility]06-23-2024 NoteQuality of life Answer each question by shading in the match-e-be-nash-she-wish band completely. Choose only one answer for each [...] 70 75 80 85 90 95 100 [facility]06-23-2024 NoteEpworth Sleepiness Scale Please rate the following [...] Problems: There are no active Hospital Problems. [facility]06-12-2024 Note Attestation signed by Grant Biswas, PhD at 04/18/2024 10:57 AM I have read and agree with the asphalt paver operator's documentation and treatment summary. Please note there [...] PhD (electronically signed on 04/17/2024 at 8:49 AM)[facility]06-07-2024 Nurse Note* Nursing Notes - Stacie Johns RN - 04/12/2024 12:45 PM EDT Dilated LES to 20mm with balloon, held for [address] Franco [facility]06-07-2024 Miscellaneous Notes* Nursing Notes - Stacie Johns [...] monitoring per anesthesia. [facility]* Nursing Notes - Stacie Johns RN - 04/12/2024 12:41 PM EDT Dilated pylorus to 20mm with balloon, held for [address] Franco. [facility]06-07-2024 History and physical note* Milagros Franco MD, PhD - 04/12/2024 12:30 PM EDT ENDOSCOPIC PREPROCEDURE HISTORY AND PHYSICAL HISTORY OF PRESENT ILLNESS: Mary Leal is a 53 y.o. female seen in the pre-procedure area at [facility]. The indication for endoscopic evaluation includes: [place] grade D esophagitis Early satiety Unintentional weight [...] Anesthesia Care. Milagros Franco MD, PhD [facility] Work Phone: 1(889) 780-611306-07-2024 History and physical note* Milagros Franco MD, PhD - 04/12/2024 12:30 PM EDT ENDOSCOPIC PREPROCEDURE HISTORY AND PHYSICAL HISTORY OF PRESENT ILLNESS: Mary Leal is a 53 y.o. female seen in the pre-procedure area at [facility]. The indication for endoscopic evaluation includes: [place] grade D esophagitis Early satiety Unintentional weight [...] MD, PhD documented in [facility]-2024 Nurse Note* Sae Kaur RN - 04/12/2024 12:30 PM EDT 1316- Family/milk delivery driver arrived to recovery bay. RN provided and reviewed discharge instructions to patient and daughter. Verbalized understanding. All questions answered. 1326- Patient ambulated off ASC unit independently with milk delivery driver. documented in this [facility]U [facility] Nurse Surgical operation note* Sae Kaur RN - 04/12/2024 12:30 PM EDT 1316- Family/milk delivery driver arrived to recovery bay. RN provided and reviewed discharge instructions to patient and daughter. Verbalized understanding. All questions answered. 1326- Patient ambulated off ASC unit independently with milk delivery driver. [facility]* Nursing Notes - Stacie Johns RN - 04/12/2024 12:12 PM EDT Sedation, vital signs, airway, and monitoring per anesthesia. [facility]05-29-2024 Note Attestation signed by Pauline Christensen MD at 04/03/2024 4:16 PM I personally saw and examined the patient on the same date of service as resident/fellow Dr. Dumont. I discussed the findings and therapeutic plan with the resident/fellow . I agree with the documentation, except for any edits/updates below. Teaching Physician's Revisions: None Pauline Christensen MD. Business Transformation Consultant of Neurology and Sleep Medicine [facility] SLEEP/NEUROLOGY CLINIC FOLLOW-UP EVALUATION Date of [...] regarding sleep. She eventually was evaluated at [facility] sleep center with Dr. Sherman and [...] we referred her to (more content not included)...[facility] 03-14-2024 Telephone encounter Note* Telephone Encounter - [...] Rx has been sent. Jacquelin Lowery RN [facility]05-09-2024 Miscellaneous Notes* Telephone Encounter - Jacquelin Lowery [...] sent. Jacquelin Lowery RN documented in this encounterEast [facility]2024 NoteHNO ID: [id number] Author: FLOWER LOPEZ APRN.LOCKER ROOM SUPERVISOR Service: ? Author Type: Nurse Practitioner Type: [...] intermittently- somewhat improved. She has worked with [employer] rep re: interstim setting, now on program [...] you received about pain medications helpful? Yes Emergency Medical Technician Basic offered:Patient declines OBJECTIVE: BP 146/93 Pulse 62 [...] notes 65% improvement s/p (more content not included)...[facility]2024 History of Present illness Narrative* Flower Lopez APRN.LOCKER ROOM SUPERVISOR - 02/27/2024 10:00 AM EDT Female Pelvic [...] intermittently- somewhat improved. She has worked with [employer] rep re: interstim setting, now on program [...] you received about pain medications helpful? Yes Emergency Medical Technician Basic offered:Patient declines OBJECTIVE: BP 146/93 Pulse 62 [...] understanding. Flower Lopez APRN.CNP documented in this encounterEast [facility]04-16-2024 Miscellaneous Notes* Telephone Encounter - Denisse Truong [...] 20, 2024 7:32 AM documented in this encounterEast [facility]04-07-2024 NoteHNO ID: [id number] Author: LISSA DOYLE APRN.CNP Service: ? Author Type: Nurse Practitioner Type: Progress Notes Filed: 02/11/2024 15:16 Note Text: Visit cancelled. Patient checked into [employer] care online system for My ongoing yeast infection. I've tried 3 Diflucan. . Connected to visit, advised PCP or local Express/Urgent Care in person evaluation. Patient verbalized understanding and comfortable with plan. Nontoxic appearance. Lissa Doyle APRN.CNPTri[facility]04-07-2024 History of Present illness Narrative* Lissa Doyle APRN.CNP - 02/11/2024 3:14 PM EDT Visit cancelled. Patient checked into [employer] care online system for My ongoing yeast infection. I've tried 3 Diflucan. . Connected to visit, advised PCP or local [facility]Urgent Care in person evaluation. Patient verbalized understanding and comfortable with plan. Nontoxic appearance. Lissa Doyle APRN.CNP documented in this encounterEast [facility]04-03-2024 NoteSLEEP/NEUROLOGY CLINIC FOLLOW-UP EVALUATION Date of Evaluation: [...] a second opinion from [facility] medicine at [facility], and saw Dr. Yoni Tuttle on [...] regarding sleep. She eventually was evaluated at [facility] [place] with Dr. Sherman and had sleep study [...] would like to av (more content not included)...[facility]03-23-2024 Miscellaneous Notes* Telephone Encounter - Radha Dunham MD - 01/27/2024 10:44 AM EDT Editorial Manager Resident Telephone Encounter 01/27/2024 10:44 AM [...] Discussed with Dr. Mullins Urogyosman fellow physician printed circuit boards contact printer. Radha Dunham MD Obstetrics and Gynecology, PGY1 documented in this encounterEast [facility] Hospital03-21-2024 History and physical note * Max Marroquin PA-C - 01/25/2024 9:00 AM EDT PREANESTHESIA CONSULT CLINIC TELEHEALTH VISIT SERVICE DATE: 01/25/2024 SERVICE TIME: 9:02 AM Patient has been identified by name and date of : Yes Reason for contact: PACC visit Accompanied by: Self This is a virtual visit using [employer] Video Visit. It required patient- provider interaction for the medical decision making as documented below. I have communicated my name and active licensure. The patient's identity and physical location wereverified at the time of this visit. Either the patient or their legal group sales representative has been informed of the [...] using inspire to get activated 02/07/2024 ) [id number] Score: Age: <65 Sex: female CHF history: No Hypertension history: Yes Stroke/TIA/thromboembolism history: No Vascular disease history: No Diabetes history: No [id number] Score: 2 ANESTHESIA FINDINGS: Intubation History: No [...] the AM and 2 mg PM Yes szxzwhacdev-eoyplysmb-ukvuxowb (TRELEGY ELLIPTA) 100-62.5-25 mcg Inhale 1 Puff [...] COVID-19 original vaccine, age 12+ yr, monovalent (HourlyNerd- BIONTCherry PURPLE [facility]) REVIEW OF SYSTEMS: positive findings are BOLD PAIN ASSESSMENT: Pain Description: Burning, Pressure Duration Amount of Time: 7 Duration Units: Weeks Frequency: Continuous Intervention/Comfort measure: Reposition General: Obesity Body mass index is 25.75 kg/m . No weight loss, malaise or fevers. Neuro: No history of TIA's, stroke, OPERATIONS MANAGER tumor, impaired sensorium, hemiplegia, paraplegia or quadraplegia. No neurological symptoms or problems. Respiratory: CHUCKIE and asthma Negative for Bronchitis, COPD, Pneumonia within 6 weeks (date), URI < 2 weeks Negative for cough, wheezing or shortness of breath. Negative for hemoptysis. Cardiovascular: HTN Negative for Recent OR, CAD, CHF Negative for chest pain, orthopnea, [...] 01/25/2024 TIME: 9:02 AM documented in this encounterEast [facility] Hospital03-19-2024 Instructions* Patient Instructions* Max Marroquin PA-C - 01/23/2024 3:50 PM EDT PATIENT PREOPERATIVE INSTRUCTIONS Pam Wang MD has scheduled you for your procedure at this surgery center: [facility] Scheduling Office: [phone] [address] [place] [address]. Arrival Time for Surgery: - To obtain your arrival time for surgery, call your physician's office the day before your surgery. - If your surgery is scheduled for Monday, call the Monday before. Your surgeon s samples and repairs preparer will tell you what time to call the office. - If you have not reached the departmental samples and repairs preparer by 5 P.M., call [phone] after 5 P.M. the day before your [...] Procedures: - YOU MUST HAVE A RESPONSIBLE LEGAL INTERN TAKE YOU HOME. A NUCLEAR PLANT OPERATOR OR WATER AND GAS HELPER CANNOT BE MADE A RESPONSIBLE LEGAL INTERN. - We recommend that a responsible person stays with you overnight to take care of you. - You cannot stay in a hotel alone after outpatient surgery. You will not be permitted to have yoursurgery, if you do not have someone to take care of you. If you already have an Advance Directive, please fax a copy to [phone] or email to for it to be [...] day. Max Marroquin PA-C documented in this encounterEast [facility] Regional Hospital03-18-2024 NoteHNO ID: [id number] Author: LEV THOMPSON LPN Service: ? Author Type: LICENSED NURSE Type: Progress Notes Filed: 01/25/2024 09:48 Note Text: DATE OF SERVICE: 01/25/2024 PROBLEM: Mary Zoya Leal presents for pre-op teaching. PRE-OP DIAGNOSIS: urinary urgency SCHEDULED SURGERY AND DATE: 01-26-24 [facility] INSRT NSTIM GENERATOR BLADDER W/ [...] patient have an advanced directive: No Does [facility] have a copy of the patient's [...] prescribed by anesthesia, internal medicine, surgeon, or SUPERVISOR BACKFILLING Stop NSAIDs, Aspirin (ASA), vitamins, herbal supplements, [...] jewelry, body piercing, makeup, contacts, lotions, nail algerian on fingers, or anything in hair on arrival to surgery Wear low healed shoes and loose fitting clothing Leave all valuables at home or with a family member Directions to [facility] Parking/parking validation on the day prior [...] if after hours patient instructed to call chemical production machine operator and ask for printed circuit boards contact printer fashion editor resident. DENISA program offered to patient: Yes [...] None Educator: Lev Thompson LPN [facility] History of Present illness Narrative* Lev Thompson LPN - 01/22/2024 11:22 AM EDT DATE OF SERVICE: 01/25/2024 PROBLEM: Mary Leal presents for pre-op teaching. PRE-OP DIAGNOSIS: urinary urgency SCHEDULED SURGERY AND DATE: 01-26-24 [facility] INSRT NSTIM GENERATOR BLADDER W/ [...] patient have an advanced directive: No Does [facility] have a copy of the patient's [...] prescribed by anesthesia, internal medicine, surgeon, or SUPERVISOR BACKFILLING Stop NSAIDs, Aspirin (ASA), vitamins, herbal supplements, [...] jewelry, body piercing, makeup, contacts, lotions, nail algerian on fingers, or anything in hair on arrival to surgery Wear low healed shoes and loose fitting clothing Leave all valuables at home or with a family member Directions to [facility] Parking/parking validation on the day prior [...] patient, if after hours patientinstructed to call chemical production machine operator and ask for printed circuit boards contact printer fashion editor resident. DENISA program offered to patient: Yes [...] None Educator: Lev Thompson LPN [facility] documented in this encounterEast [facility] Regional Hospital03-18-2024 Instructions* Patient Instructions* Lev Thompson LPN - 01/22/2024 11:22 AM EDT UROGYNECOLOGY PHYSICIAN CONTACT INFORMATION During business hours, these numbers connect to your doctor s office. During the evening and weekends, these numbers will connect you to the answering service to speak with the doctor printed circuit boards contact printer. Dr. Pam Wang After hours phone number: or toll free Ask the chemical production machine operator to page the 'fashion editor printed circuit boards contact printer.' Surgery Scheduling Office: Call the day before [...] vitamin E, herbal medications, diet pills, and pyvv-blh-bllxciw medications. Tylenol (acetaminophen) is okay. I will not wear jewelry, body piercing(s), makeup, nail algerian, hairpins, or contacts on the day ofsurgery. [...] my surgeon. Discuss medication changes with your roof truss machine tender or primary care physician as well. If I stopped taking my blood-thinning medication, I will ask the surgeon when to resume taking it. If I am an outpatient, a responsible person will drive me home and it was suggested that someone stay with me for 24 hours. I understand that a college or university business manager or cabdriver is NOT a responsible caregiver. [...] time for surgery, I must call my certified surgical assistant after 2pm the day before surgery. PREOP INSTRUCTIONS THE DAY OF SURGERY/CHECK IN Report to [facility] for surgery. A map is located in Your Surgical Guide Book. The online version of the surgical guide book can be found at: [email or web address] The address is [address] [place] [address] INFECTION PREVENTION Please notify your doctor if [...] Your Surgical Guide Book for more information. [facility] TEAM At the [facility], we have a multidisciplinary team of caregivers that includes fellows, residents, nurse practitioners, physician assistants, clinical nurse specialists, nurses, medical assistants, patient care nursing assistants, social workers, insurance case manager and many others. We all [...] MyChart for post-surgery concerns. documented in this encounterEast [facility] Hospital03-06-2024 History of Present illness Narrative* Cullen Dawkins MD - 01/10/2024 12:45 PM EST [facility] [address] [place] [address], [address] [id number] SUBJECTIVE: Patient ID (1970): Mary Leal is [...] 03/20/2020 Performed by Alberto Solis MD at [facility] EGD, DILATATION N/A 09/25/2020 Performed by Alberto Solis MD at [facility] ENDOSCOPIC DIAGNOSTIC DRUG INDUCED SLEEP Bilateral 09/19/2023 Performed by Cullen Dawkins MD at [facility] FOOT SURGERY 06/25/2020 left foot surgery FOOT SURGERY Right 10/2022 and 05/2023 HYSTERECTOMY 2015 LASER LINGUAL TONISILLECTOMY Circumferential 07/08/2021 Performed by Alexei Avila MD PhD at [facility] MRI FOOT LEFT NECK SURGERY 2017 PLANTAR FASCIECTOMY RELEASE PHARYNGEAL SCAR CPT 66395 Circumferential 07/08/2021 Performed by Alexei Avila MD PhD at [facility] RESECTION SUBMUCOSAL NASAL Bilateral 02/11/2021 Performed by Alexei Avila MD PhD at [facility] ROTATOR CUFF REPAIR Right SEPTOPLASTY Circumferential 02/11/2021 Performed by Alexei Avila MD PhD at [facility] TONSILLECTOMY Bilateral 02/11/2021 Performed by Alexei Avila MD PhD at [facility] TOTAL COLECTOMY 03/2022 uvuloplasty N/A 02/11/2021 Performed by Alexei Avila MD PhD at [facility] Family History Problem Relation Age of Onset [...] in the morning. Indications: gastroesophageal reflux disease. cdoyfvazgwc-lqqapxbtp-xdzoufzl (TRELEGY ELLIPTA) 100-62.5-25 mcg blister with device [...] mg 2.5 mg nebulization PRN Gwendolyn Stroud APRN-LOCKER ROOM SUPERVISOR REVIEW OF SYSTEMS: Review of Systems Data [...] this chart were generated using voice recognition [employer] dictation software. Although every effort was made to ensure the accuracy of this automated enrollment management director, some errors in enrollment management director may have occurred. Iam Casanovaoy 01/10/24 0753 documented in this encounterGalion HospitalAscent Therapeutics [id number] Instructions* Patient Instructions* Cullen Dawkins MD - [...] care. The instructions to gain access to Snehta are at the bottom of this summary. If you are not signed up for access to MY CHART and have not received notification of ANY test result within 7 days, please call [phone] to leave a request for your results. [...] Ultrasound, MRI or PET scan, please call [facility] Scheduling at [phone]. If you need to be scheduled for surgery, please call Aiden Augustin Surgery Coordinator at [phone], or Lazara at [phone] or our main number [phone] if you have not received a return [...] (and medications that contain aspirin): Many non-prescription (xopf-oji-gtvxpxa or OTC) medications contain aspirin. If you are unsure whether a medication you take has aspirin, please ask your pharmacist or your surgeon's office. You must ask your surgical team if they want you to continuetaking, or stop taking aspirin before your procedure. Medications containing aspirin that should be stopped 7 days before surgery: Juliet-Lewis Anacin Aspirin Fiorinal Ascriptin Carlos Bufferin Lortab [...] L-carnosine Licorice Kava kava Milk thistle Multivitamin [place]-3 Resveratrol [facility] Vitamin E Adipex (phentermine) Glenn (orlistat) Hydroxycut Garcinia Cambogia Raspberry Ketones Iaymvydc-W-25 should be stopped 14 days before surgery You will receive specific instructions regarding your insulin and anti-coagulant/anti-platelet medications (if applicable). documented in this [facility]02-21-2024 Miscellaneous Notes* Telephone Encounter - Aiden Augustin - 12/27/2023 10:12 AM EST PATIENT NOTIFIED WITH SURGERY TIME OF 11:00. TOLD TO ARRIVE 2 HOURS PRIOR. documented in [facility]02-21-2024 Telephone encounter Note* Telephone Encounter - Aiden Augustin - 12/27/2023 10:12 AM EST PATIENT NOTIFIED WITH SURGERY TIME OF 11:00. TOLD TO ARRIVE 2 HOURS PRIOR. [facility]02-19-2024 Miscellaneous Notes* Telephone Encounter - Stacie Gonzalez RN - 12/25/2023 3:02 PM EST See MC message A message has been routed to the provider Closing Stacie Gonzalez RN * Telephone Encounter - Denises Mcintyre - 12/25/2023 2:14 PM EST Reason [...] distance health visit in this department: 10/25/2021 Gate Clerk, Nurse Next visit in this department: 01/25/2024 documented in this encounterEast [facility] Hospital02-14-2024 History and physical note * Vilma Sutton APRN-KWESI - 12/20/2023 11:45 AM EST PRE-ADMISSION TESTING HISTORY AND PHYSICAL EXAM DATE: 12/20/23 PCP: ELICEO GÓMEZ JR, DO CHIEF COMPLAINT: CHUCKIE (obstructive sleep apnea) HISTORY OF PRESENT ILLNESS: Mary D Elvis, a 53 y.o. White or female, presents to [facility] for a pre- surgical H&P for [...] 03/20/2020 Performed by Alberto Solis MD at [facility] EGD, DILATATION N/A 09/25/2020 Performed by Alberto Solis MD at [facility] END[facility]COPY ENDOSCOPIC DIAGNOSTIC DRUG INDUCED SLEEP Bilateral 09/19/2023 Performed by Cullen Dawkins MD at [facility] FOOT SURGERY 06/25/2020 left foot surgery FOOT SURGERY Right 10/2022 and 05/2023 HYSTERECTOMY 2015 LASER LINGUAL TONISILLECTOMY Circumferential 07/08/2021 Performed by Alexei Avila MD PhD at [facility] MRI FOOT LEFT NECK SURGERY 2017 PLANTAR FASCIECTOMY RELEASE PHARYNGEAL SCAR CPT 02948 Circumferential 07/08/2021 Performed by Alexei Avila MD PhD at [facility] RESECTION SUBMUCOSAL NASAL Bilateral 02/11/2021 Performed by Alexei Avila MD PhD at [facility] ROTATOR CUFF REPAIR Right SEPTOPLASTY Circumferential 02/11/2021 Performed by Alexei Avila MD PhD at [facility] TONSILLECTOMY Bilateral 02/11/2021 Performed by Alexei Avila MD PhD at [facility] TOTAL COLECTOMY 03/2022 uvuloplasty N/A 02/11/2021 Performed by Alexei Avila MD PhD at [facility] FAMILY HISTORY: Family History Problem Relation [...] Indications: gastroesophageal reflux disease., Disp: , Rfl: envcfepjzpr-zkvbhoner-jwwbtioh (TRELEGY ELLIPTA) 100-62.5-25 mcg blister with device, [...] 2.5 mg, nebulization, PRN, Gwendolyn Nicole Stroud, CAM MAKER-LOCKER ROOM SUPERVISOR REVIEW OF SYSTEMS: Review of Systems Constitutional: [...] the most recent lab values available in [facility] at the time ofthe office visit and additional labs may have been drawn since that time. ASSESSMENT / DIAGNOSIS: CHUCKIE (obstructive sleep apnea) PLAN: Mary Leal is scheduled for Insertion Stimulator Nerve Hypoglossal - Right with Dr. Dawkins on01/02/2024. STELLA Duron 12/20/23 1240 [facility]02-14-2024 History and physical note* STELLA Duron - 12/20/2023 11:45 AM EST PRE-ADMISSION TESTING HISTORY AND PHYSICAL EXAM DATE: 12/20/23 PCP: ELICEO GÓMEZ JR, DO CHIEF COMPLAINT: CHUCKIE (obstructive sleep apnea) HISTORY OF PRESENT ILLNESS: Mary Leal, a 53 y.o. White or female, presents to [facility] for a pre- surgical H&P for [...] 03/20/2020 Performed by Alberto Solis MD at [facility] EGD, DILATATION N/A 09/25/2020 Performed by Alberto Solis MD at [facility] ENDOSCOPIC DIAGNOSTIC DRUG INDUCED SLEEP Bilateral 09/19/2023 Performed by Cullen Dawkins MD at [facility] FOOT SURGERY 06/25/2020 left foot surgery FOOT SURGERY Right 10/2022 and 05/2023 HYSTERECTOMY 2015 LASER LINGUAL TONISILLECTOMY Circumferential 07/08/2021 Performed by Alexei Avila MD PhD at [facility] MRI FOOT LEFT NECK SURGERY 2017 PLANTAR FASCIECTOMY RELEASE PHARYNGEAL SCAR CPT 47848 Circumferential 07/08/2021 Performed by Alexei Avila MD PhD at [facility] RESECTION SUBMUCOSAL NASAL Bilateral 02/11/2021 Performed by Alexei Avila MD PhD at [facility] ROTATOR CUFF REPAIR Right SEPTOPLASTY Circumferential 02/11/2021 Performed by Alexei Avila MD PhD at [facility] TONSILLECTOMY Bilateral 02/11/2021 Performed by Alexei Avila MD PhD at [facility] TOTAL COLECTOMY 03/2022 uvuloplasty N/A 02/11/2021 Performed by Alexei Avila MD PhD at [facility] FAMILY HISTORY: Family History Problem Relation Age [...] Indications: gastroesophageal reflux disease., Disp: , Rfl: hhlnzliiacc-xgaaspybe-eniagtoe (TRELEGY ELLIPTA) 100-62.5-25 mcg blister with device, [...] mg, 2.5 mg, nebulization, PRN, Gwendolyn Stroud, CAM MAKER-LOCKER ROOM SUPERVISOR REVIEW OF SYSTEMS: Review of Systems Constitutional: [...] the most recent lab values available in [facility] at the time ofthe office visit and additional labs may have been drawn since that time. ASSESSMENT / DIAGNOSIS: CHUCKIE (obstructive sleep apnea) PLAN: Mary Kenny Elvis is scheduled for Insertion Stimulator Nerve Hypoglossal - Right with Dr. Dawkins on01/02/2024. STELLA Duron 12/20/23 1240 documented in this encounterGalion HospitalAscent Therapeutics [id number] Instructions* Patient Instructions* Earlene Whalen RN - 12/20/2023 11:45 AM EST Your surgery/procedure is scheduled at [facility] on 01/02/2024 Arrival Time Surgeon will call [facility] Address: [address] [place] [address], [facility], [address] Park in the Emergency Center Parking lot. Report to the director of front office in the Emergency/Surgery Registration lobby of the hospital. Please call Pre-Admission Clinic at [phone] if you have any questions prior to surgery. For questions the morning of surgery, please call the Pre-op Department at [phone]. Notify your SURGEON if you develop any [...] [facility], please call [phone] ([phone]). Do not use lotions, creams, powders, perfume, make up, cologne or after-shaves day of surgery. Remove ALL jewelry including wedding rings, body piercings, hair extensions that contain metal, nail algerian, make-up, and contact lens. You may brush your teeth the morning of surgery, but do not swallow the water. Wear your dentures and partial plates to the hospital (no adhesive). Shower the night the before. If applicable, use the CHG (chlorhexidine gluconate) soap or wipes. Please be advised, [facility] has transitioned to a cashless payment system. [...] RIGHTS AND RESPONSIBILITIES As a patient at [facility], you have the right to: Receive medical care and be informed of who is taking care of you Be treated with dignity and respect Have a family member/group sales representative of choice and your physician notified of your admission Receive information and actively participate in decisions about your care and treatment Refuse care, treatment and services Decide who may provide your support and speak for you Access buddhist and spiritual services Participate in ethical issues [...] of hospital charges and payment methods Patient/patient group sales representative responsibilities are to: Provide information [...] surgery in clean clothes. documented in this encounterGalion HospitalBundle [facility] Health [id number] NoteHNO ID: [id number] Author: PAM WANG MD Service: ? Author [...] my personal performance and is accurate and complete.[facility]01-03-2024 Miscellaneous Notes* Telephone Encounter - Emily Zamora - 11/08/2023 3:40 PM EST NURTEC PENDING WITH TEJADA [id number] documented in this encounterPremier Health01-03-2024 Telephone encounter Note* Telephone Encounter - Emily Zamora - 11/08/2023 3:40 PM EST NURTEC PENDING WITH TEJADA [id number] [facility]12-07-2023 NoteHNO ID: [id number] Author: Pam Wang MD Service: ? Author [...] Video-assisted cystourethroscopy was performed using a 19 Kuwaiti 70 and 30 degree rigid cystoscope with [...] and urethra PLAN: See progress note from todayTri[facility]12-05-2023 NoteHNO ID: [id number] Author: Pam Wang MD Service: ? Author [...] PFSH obtained by others. Pam Wang MD Emergency Medical Technician Basic offered: Patient declines. OBJECTIVE: BP 102/60 General: [...] which included preparing to see the patient, oafp-bi-iniq patient care, completing clinical documentation, obtaining and/or reviewing separately obtained history, performing a medically appropriate examination, counseling and educating the patient/family/caregiver, and communicating with other HCP (more content not included)...[facility]11-27-2023 Miscellaneous Notes * Telephone Encounter - [...] sickness that she had before going to [place]. She states that she was going to [...] 150 MG TABLET MEREDITH: 09/27/2023 Doris Arias APRN.[facility] ([facility]) ASSESSMENT: Mary Leal is a [...] w/ Dr. Pam Wang documented in this encounterEast Ohio Regional Hospital11-22-2023 NoteHNO ID: [id number] Author: Doris Arias APRN.LOCKER ROOM SUPERVISOR Service: ? Author Type: Nurse Practitioner Type: [...] ache and some malodorous urine. Patient in [place], unable to come in for visit. Has [...] urination is normal and pressure with urinating CONSTRUCTION RIGGER: denies abnormal vaginal bleeding, no vaginal discharge [...] Making Level: 3 - Low Doris Arias APRN.[facility]11-22-2023 Miscellaneous Notes * Telephone Encounter - Lex [...] which included preparing to see the patient, ogny-by-mdzs patient care, completing clinical documentation, obtaining and/or [...] Office will call to schedule cystoscopy. [facility]ro[facility]necology [facility] Main provided: Pam Wang Staff Physician, Department of Urogynecology and Pelvic Floor Disorders Worsening frequency and urgency of urination. Is a urine culture indicated? Please review/advise Lex Vieyra RN documented in this encounterEast Ohio Regional Hospital11-06-2023 NoteHNO ID: [id number] Author: Jairon Lai MD Service: ? Author Type: Physician Type: Progress Notes Filed: 09/11/2023 1:18 PM Note Text: [facility] [...] Pdet to void lower flow Jairon Lai [facility]11-06-2023 NoteHNO ID: [id number] Author: Phil Beckford MD Service: ? Author [...] benefit from sling incision +/- discussion of [facility]10-07-2023 Emergency department Note* Avelino Scott RN - 08/12/2023 7:35 AM EDT Discharge, follow up, referral, and prescription information reviewed and explained; all questions and concerns addressed. Patient A/Ox3 in NAD, resp. easy unlabored upon discharge, escorted to exit by staff. [facility]10-07-2023 Emergency department Note* Avelino Scott [...] gastroparesis, gastroenteritis, acute cholecystitis, pancreatitis, less likely OR The patient's initial and delta troponin are negative. EKG does not demonstrate any ischemic changes. Low suspicion for OR. Her urinalysis is negative for UTI. Urine [...] follow-up. She was instructed to call her air table operator and PCP to schedule follow-up appointments. She was instructed to return to the emergency department if she has any new or worsening symptoms. Patient agreeable plan of care. Return precautions discussed at bedside. Spoke with Dr. Salmon regarding patient. Physician to complete their own physical exam and evaluation. Collaboration performed between this FOOD SERVICE HELPER and physician regarding patient's plan of [...] following orders were created for panel order [place] Draw. Procedure Abnormality Status --------- ------ Gold Top[[id number]] Final result LIGHT BLUE TOP[[id number]] Final result Dark Green Top[[id number]] Final result Please view results for these tests on the individual orders. GOLD TOP LIGHT BLUE TOP DARK GREEN TOP TROPONIN I Records reviewed: Urogynecology telemedicine visit 08/07/2023 ENT visit 07/11/2023 Family medicine visit 07/06/2023 Lev Ritter APRN CNP 08/12/23722 * Jaren Lopez, MAKI - 08/12/2023 4:21 AM EDT Emily at bedside * Moissé Duke, MAKI - 08/12/2023 12:24 AM EDT Ambulates to triage with C/O sudden epigastric gnawing, burning pain that woke her from sleep. Alsoreports wheezing. States nausea. Denies fever. Alert. Respirations easy and unlabored. Skin PWD. NAD noted. documented in this encounterMichael [facility]. [facility] Hospital Discharge instructions* Discharge Instructions* Lev [...] sent through Care Everywhere. * Abdominal Pain (Chinese Angolan) documented in this encounterMichael [facility]. [facility] Emergency department Note* Monserrat Scales RN - 08/12/2023 7:05 AM EDT Report to Les GAMBINO [facility]10-07-2023 Physician Emergency department Note* Lev [...] gastroparesis, gastroenteritis, acute cholecystitis, pancreatitis, less likely OR The patient's initial and delta troponin are negative. EKG does not demonstrate any ischemic changes. Low suspicion for OR. Her urinalysis is negative for UTI. Urine [...] follow-up. She was instructed to call her air table operator and PCP to schedule follow-up appointments. She was instructed to return to the emergency department if she has any new or worsening symptoms. Patient agreeable plan of care. Return precautions discussed at bedside. Spoke with Dr. Salmon regarding patient. Physician to complete their own physical exam and evaluation. Collaboration performed between this FOOD SERVICE HELPER and physician regarding patient's plan of [...] following orders were created for panel order [place] Draw. Procedure Abnormality Status --------- ------ Gold Top[[id number]] Final result LIGHT BLUE TOP[[id number]] Final result Dark Green Top[[id number]] Final result Please view results for these tests on the individual orders. GOLD TOP LIGHT BLUE TOP DARK GREEN TOP TROPONIN I Records reviewed: Urogynecology telemedicine visit 08/07/2023 ENT visit 07/11/2023 Family medicine visit 07/06/2023 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 08/12/23722 [facility]10-07-2023 Emergency department Note* Jaren Lopez RN - 08/12/2023 4:21 AM EDT Emily at bedside [facility]10-07-2023 Emergency department Triage note* Moisés Duke RN - 08/12/2023 12:24 AM EDT Ambulates to triage with C/O sudden epigastric gnawing, burning pain that woke her from sleep. Alsoreports wheezing. States nausea. Denies fever. Alert. Respirations easy and unlabored. Skin PWD. NAD noted. [facility]10-02-2023 NoteHNO ID: [id number] Author: Pam Wang MD Service: ? Author [...] no Pain: no Abnormal Vaginal Discharge: no 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 She has no history of an abnormal mammogram with cysts on US LMP: No LMP recorded. Patient has had a hysterectomy.; Menopause 3 years ago; hysterectomy in 2015: Menstrual history: NA; Deliveries: I have confirmed and edited as necessary, the PFSH obtained by others. Pam Wang MD Emergency Medical Technician Basic offered: Patient declines. OBJECTIVE (Virtual) There were [...] which included preparing to see the patient, ovgw-el-ydbm patient care, completing clinical documentation, obtaining and/or reviewing separately obtained history, counseling and educating the patient/family/caregiver, ordering medications, tests, or procedures, and communicating with other HCPs (not separately reported). Pam Wang, [facility]09-25-2023 NoteHNO ID: [id number] Author: Nelsy Chávez APRN.KWESI Service: ? Author [...] new Pain: no Abnormal Vaginal Discharge: no 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 She has no history of an abnormal mammogram with cysts on US LMP: No LMP recorded. Patient has had a hysterectomy.; Menopause 3 years ago; hysterectomy in 2015: Menstrual history: NA; Deliveries: I have confirmed and edited as necessary, the PFSH obtained by others. Nelsy Chávez, DANN.LOCKER ROOM SUPERVISOR Emergency Medical Technician Basic offered: Patient declines. OBJECTIVE: There were no [...] which included preparing to see the patient, uocg-ep-ycxu patient care, completing clinical documentation, performing a medically appropriate examination, counseling and educating the patient/family/caregiver and ordering medications, tests, or procedures.[facility]09-25-2023 History of Present illness Narrative* Nelsy Chávez APRN.LOCKER ROOM SUPERVISOR - 07/31/2023 2:16 PM EDT Female Pelvic [...] new Pain: no Abnormal Vaginal Discharge: no 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 She has no history of an abnormal mammogram with cysts on US LMP: No LMP recorded. Patient has had a hysterectomy.; Menopause 3 years ago; hysterectomy in 2015:Menstrual history: NA; Deliveries: I have confirmed and edited as necessary, the PFSH obtained by others. Nelsy Chávez APRN.LOCKER ROOM SUPERVISOR Emergency Medical Technician Basic offered: Patient declines. OBJECTIVE: There were no [...] which included preparing to see the patient, wbqv-zd-xrhc patient care, completing clinical documentation, performing a medically appropriate examination, counseling and educating the patient/family/caregiver and ordering medications, tests, or procedures. documented in this encounterEast Ohio Regional Hospital06-21-2023 Evaluation note* Encounter Date Diagnosis Assessment Notes [...] note writ ten by Wanda Yang LPN, Rn Surgery Icu. Edited and approved by Dr. Beto Snyder MD. Node Management Other 06-06-2023 Miscellaneous Notes* Telephone Encounter - Serenity Joseph MA - 04/11/2023 10:19 AM EDT MEREDITH=10/11/22 Spoke with patient she does need a refill Medication pended please file Rx request if appropriate Patient and pharmacy verified documented in this encounterEast Ohio Regional Hospital05-15-2023 Miscellaneous Notes* Telephone Encounter - Regina Philippe - 03/20/2023 2:50 PM EDT Should patient follow up via virtual visit to discuss further? * Telephone Encounter - Steffi Ross LPN - 03/20/2023 10:20 AM EDT Patient's stool tests came back normal. Steffi Ross LPN documented in this encounterEast Ohio Regional Hospital04-18-2023 NotePROCEDURE: XR ANKLE RT MIN 3 [...] Electronically authenticated by: ZAIDA ACOSTA Date: 2023-02-21 10:[facility]04-18-2023 NotePROCEDURE: XR ANKLE RT MIN 3 VIEWS, [...] Electronically authenticated by: ZAIDA ACOSTA Date: 2023-02-21 10:[facility]03-28-2023 NotePROCEDURE: XR FOOT RT MIN 3 VIEWS [...] Electronically authenticated by: ZAIDA ACOSTA Date: 2023-01-31 11:55[facility]03-16-2023 Miscellaneous Notes* Telephone Encounter - Jennie Moreno RN - 01/19/2023 2:17 PM EDT Please review and advise patient. documented in this encounterEast Ohio Regional Hospital03-13-2023 Miscellaneous Notes* Telephone Encounter - Mounika Roberto PA-C - 01/16/2023 1:08 PM EDT Patient was scheduled for virtual PACC appt at 1300 today. Patient did not check in for visit. Called patient at [phone] to see if they needed any assistance logging in and left voicemail. This message routed to PACC schedulers to contact patient to reschedule PACC appt. Mounika Roberto PA-C January 16, 2023 1:09 PM documented in this encounterEast Ohio Regional Hospital03-13-2023 History and physical note * Mounika Roberto PA-C - 01/16/2023 1:00 PM EDT This is a virtual visit using Submitnet video visit. It required patient-provider interaction for themedical decision making as documented below. I have communicated my name and active licensure. The patient's identity and physical location wereverified at the time of this visit. Either the patient or their legal group sales representative has been informed of the risks and benefits of and alternatives to treatment through a remote evaluation and consents to proceed with the evaluation remotely. Surgeon: Grubic, Winston D, DO Type of surgery: GEN SURG: POP Patient scheduled for surgery on 02/08/23 . Surgery Location: [facility] Diagnosis: Preop examination (primary encounter [...] in the AM and 4 mg PM rfnlfsqztrz-bynmrwiyb-smlbglzc (TRELEGY ELLIPTA) 100-62.5-25 mcg Inhale 1 Puff [...] 16, 2023 12:36 PM documented in this encounterEast Ohio Regional Hospital03-13-2023 Instructions* Patient Instructions* Mounika Roberto PA-C - 01/16/2023 12:38 PM EDT PATIENT PREOPERATIVE INSTRUCTIONS Winston Hannah DO has scheduled you for your procedure at this surgery center: [facility]: [phone] -- [place] [address]. Please read below carefully for your personalized [...] Procedures: - YOU MUST HAVE A RESPONSIBLE LEGAL INTERN TAKE YOU HOME. A NUCLEAR PLANT OPERATOR OR WATER AND GAS HELPER CANNOT BE MADE A RESPONSIBLE LEGAL INTERN. - We recommend that a responsible person [...] Advance Directive, please fax a copy to [phone] or email to for it to be [...] day. Mounika Roberto PA-C documented in this encounterEast Ohio Regional Hospital03-08-2023 Miscellaneous Notes* Telephone Encounter - Berta Ann RN - 01/11/2023 9:47 AM EST Procedure pended for 02/08/23. Pt aware of need for PACC. Pre-op instructions reviewed, will send to pt's MC, per pt request. Postop appt scheduled. No other questions at this time. Berta HENSON, RN Specialty Horseshoer documented in this encounterEast Ohio Regional Hospital03-07-2023 History of Present illness Narrative* Winston Hannah, DO - 01/10/2023 9:09 AM EST Images from the original note were not included. [facility] [place] Gastroparesis/Dysmotility Follow Up This encounter was provided via two-way, live video teleconferencing within the guidelines of [facility] rules for new and established [...] of care. NAME: Mary Leal CLINIC NO: [id number] CHIEF COMPLAINT Idiopathic Gastroparesis HISTORY OF PRESENT [...] Normal gastric transit Normal small bowel transit [id number] transit in the distal bowel consistent delay [...] (FLONASE) 50 mcg/actuation nasal spray Use 1 [place] in each nostril once daily. carBAMazepine XR [...] THE LUNGS every 4 hours if needed rbrrdhfnaen-wjiqiless-fmimteqw (TRELEGY ELLIPTA) 100-62.5-25 mcg Inhale 1 Puff [...] dialysis. No history of symptoms or problems. CONSTRUCTION RIGGER: Negative for abnormal vaginal bleeding, abnormal vaginal [...] and plan of care. documented in this encounterEast Ohio Regional Hospital02-23-2023 Miscellaneous Notes* Addendum Note - Yoni Tuttle MD - 12/29/2022 3:37 PM ESTAddended by: YONI TUTTLE MD on: 12/29/2022 03:37 PM Modules accepted: Orders documented in this encounterEast Ohio Regional Hospital02-20-2023 History of Present illness Narrative* RT [...] 26, 2022 3:17 PM documented in this encounterEast Ohio Regional Hospital02-17-2023 Miscellaneous Notes* Telephone Encounter - Erica Serrano RN - 12/23/2022 4:36 PM EST Message being addressed in another encounter that was forwarded to provider documented in this encounterEast Ohio Regional Hospital02-16-2023 History of Present illness Narrative* Winston Kenny Brielle, DO - 12/22/2022 8:52 AM EST Images from the original note were not included. [facility] [place] Gastroparesis/Dysmotility Follow Up This encounter was provided [...] completed esophagram NAME: Mary Leal CLINIC NO: [id number] CHIEF COMPLAINT Idiopathic Gastroparesis HISTORY OF PRESENT [...] chicken spaghetti etc. Duration of symptoms (months): 7157-7527 Weight changes in last 3 months: Stable [...] Normal gastric transit Normal small bowel transit [id number] transit in the distal bowel consistent delay [...] (FLONASE) 50 mcg/actuation nasal spray Use 1 [place] in each nostril once daily. carBAMazepine XR [...] THE LUNGS every 4 hours if needed pxixklqhjvb-tjceessoj-fdpxymih (TRELEGY ELLIPTA) 100-62.5-25 mcg Inhale 1 Puff [...] dialysis. No history of symptoms or problems. CONSTRUCTION RIGGER: Negative for abnormal vaginal bleeding, abnormal vaginal [...] and plan of care. documented in this encounterEast Ohio Regional Hospital02-15-2023 NotePROCEDURE: XR FOOT RT MIN 3 [...] Electronically authenticated by: ZAIDA ACOSTA Date: 2022-12-21 12:24[facility]02-09-2023 History of Present illness Narrative* Mary Obrien [...] TONSILLECTOMY HX 07/2021 revision VAGINAL HYSTERECTOMY 2014 [facility] 10/2015 for endometriosis, has remaining both [...] in the AM and 4 mg PM ukxbayrwhtm-xceqjhlfj-dmccmygz (TRELEGY ELLIPTA) 100-62.5-25 mcg Inhale 1 Puff [...] which included preparing to see the patient, vafn-rn-pryl patient care, completing clinical documentation, obtaining and/or reviewing separately obtained history, counseling and educating the patient/family/caregiver, ordering medications, quincy ts, or procedures, communicating with other HCPs (not separately reported), independently interpreting results (not separately reported), communicating results to the patient/family/caregiver, and care coordination (not separately reported). Mary Obrien MD Colorectal Surgery documented in this encounterEast Ohio Regional Hospital02-08-2023 Miscellaneous Notes* Telephone Encounter - Emily Benton RN - 12/14/2022 5:19 PM EST Several attempts to reach pt unsuccessful - MC sent. * Telephone Encounter - Barber Marie - 12/02/2022 8:39 AM EST SLEEP PHONE Name of caller: Mary Leal Relationship to patient : Self In-state or qqw-eu-uqfcx patient: In-State Was permission obtained from patient? Yes Patient identified by Name and Date of . ( Mary Leal, 1970). Yes Reason for Call : Patient said her and Emily was chatting through my chart and Emily calledher about 5:15 yesterday. Number to return call [phone] Okay to leave a message ? Yes Last office visit 10/14/[address] Kusum guzman Next office visit 01/13/[address] Tuttle virtual documented in this encounterEast Ohio Regional Hospital02-06-2023 Miscellaneous Notes* Telephone Encounter - Jet [...] and follow up testing return call to [phone] documented in this encounterEast Ohio Regional Hospital02-03-2023 Miscellaneous Notes* Telephone Encounter - MALAIKA [...] patient Summary: As noted Concerns: Procedure results Horseshoer plan for next outreach: Will follow up Signature Nelsy Gilmore RN December 08, 2022 documented in this encounterEast Ohio Regional Hospital01-30-2023 Nurse Note* Lisa Contreras RN - 12/05/2022 1:05 PM EST [facility] ENDOSCOPY PRE PROCEDURE CALL Akiko. I'm calling from [facility] endoscopy to provide you with the information for your surgery/procedure tomorrow. 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 tbd What is the best number for your milk delivery driver to be reached at tomorrow for updates? tbd Your milk delivery driver is allowed to wait here [...] Do not wear makeup, lotion, or finger algerian. yes Patient instructed: Please bring a list [...] given Any barriers to Patient learning (confusion? Terminal Operations Supervisor needed?): Patient/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 responded appropriately on phone. If patient needs to reschedule please call: [phone] DD phone number: [phone] Type of instruction given: Verbal by telephone contact. documented in this encounterEast Ohio Regional Hospital01-27-2023 Nurse Note* Isra Harman RN - 12/02/2022 10:48 AM EST [facility] ENDOSCOPY PRE PROCEDURE CALL Akiko. I'm calling from [facility] endoscopy to provide you with the information for your surgery/procedure tomorrow. 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 Rich What is the best number for your milk delivery driver to be reached at tomorrow for updates? [phone] Your milk delivery driver is allowed to wait here [...] be done on Monday.) Did you picking tech your bowel prep pt calling office for [...] Do not wear makeup, lotion, or finger algerian. yes Patient instructed: Please bring a list [...] given Any barriers to Patient learning (confusion? Terminal Operations Supervisor needed?): Patient/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 responded appropriately on phone. If patient needs to reschedule please call: [phone] [facility] phone number: [phone] Type of instruction given: Verbal by telephone contact. documented in this encounterEast [facility]01-26-2023 NotePROCEDURE: XR FOOT RT MIN 3 [...] Electronically authenticated by: ZAIDA ACOSTA Date: 2022-12-01 11:42[facility]01-26-2023 NotePROCEDURE: XR FOOT RT MIN 3 VIEWS, [...] Electronically authenticated by: ZAIDA ACOSTA Date: 2022-12-01 11:42[facility]01-25-2023 History of Present illness Narrative* Isra Masters, [...] in the AM and 4 mg PM dblpsbsegyy-vauaerinf-atolztyv (TRELEGY ELLIPTA) 100-62.5-25 mcg Inhale 1 Puff [...] no edema RESPIRATORY: No dyspnea : neg CONSTRUCTION RIGGER: neg The remainder of the review of [...] Isra Masters DO 11/30/2022 documented in this encounterEast [facility] Hospital01-19-2023 Miscellaneous Notes* Telephone Encounter - Erica Serrano RN - 11/24/2022 3:20 PM EST This concern was addressed in the phone encounter on 11/24/22. Patient was called back and informed [employer] will complete Prior Authorization for her sleep study. documented in this encounterEast [facility] Hospital01-19-2023 Miscellaneous Notes* Telephone Encounter - Erica [...] Relationship to patient : Self In-state or [id number] patient: In-State Was permission obtained from patient? Yes Patient identified by Name and Date of . ( Mary Leal, 1970). Yes Reason for Call : Patient stated she spoke to her insurance and they told her that the provider need to call Deuce to see if a PA is needed for the PAP Titration. Number to return call [phone] Okay to leave a message ? Yes Last office visit 10/14/[address] Tuttle virtual Next office visit None documented in this encounterEast [facility] Hospital01-19-2023 History of Present illness Narrative* Isra Masters DO - 11/24/2022 8:29 AM EST Images from the original note were not included. CarlitosPill Test Report - [id number] Test start date: 11/17/2022 10:03 AM Coater Operator Insulation Board: josephine Interpretation date: 11/24/2022 Ordering physician: Isra Masters DO Referring physician: Patient Information Name: Mary Leal ID: [id number] date: 1970 Height ft. in.: 5' 4 [...] Normal gastric transit Normal small bowel transit [id number] transit in the distal bowel consistent delay post anastomosis Signature _Dr. Masters Date _11/24/2022 documented in this encounterEast [facility] Hospital01-17-2023 Miscellaneous Notes* Telephone Encounter - Regina Philippe - 11/22/2022 3:37 PM EST Patient calling to verify that Smart Pill monitor was received at [facility]. Monitor was sent via Fed [employer] on 11/19/22. Patient is requesting a confirmation. documented in this encounterEast [facility] Regional Hospital01-16-2023 Miscellaneous Notes* Telephone Encounter - Erica Serrano RN - 11/21/2022 9:11 AM EST Submitnet message sent to patient. Prior Sleep study forwarded to MD to review, Order pended for PAP-titration for provider to review and sign if necessary. documented in this encounterEast [facility] Regional Hospital01-16-2023 History and physical note * Yodit Back PA-C - 11/21/2022 8:00 AM EST PREANESTHESIA CONSULT CLINIC TELEHEALTH VISIT Patient has been identified by name and date of : Yes This is a virtual visit using Submitnet video visit. It require patient-provider interaction for [...] in the AM and 4 mg PM hvpcaydtlsf-tarwrapia-nddfmxub (TRELEGY ELLIPTA) 100-62.5-25 mcg Inhale 1 Puff as instructed once daily. No current facility-administered medications for this visit. COVID VACCINATION STATUS: Fully vaccinated REVIEW OF SYSTEMS: Pain Assessment: General: No weight loss, malaise or fevers. Neuro: No history of TIA's, stroke, OPERATIONS MANAGER tumor, impaired sensorium, hemiplegia, paraplegia or [...] requiring medication, no history of angina, CHF, OR, cardiac surgery or stents. Denies rest pain, gangrene or revascularization/amputation for PVD. No history of cardiovascular symptoms or problems. + HLD GI: See HPI : No history of dysuria, frequency or incontinence,, stones or chronic kidney disease CONSTRUCTION RIGGER: Negative for abnormal vaginal bleeding, abnormal vaginal [...] 8:07 AM PAGER/CONTACT #: documented in this encounterEast [facility] Regional Hospital01-12-2023 Miscellaneous Notes* Addendum Note - Yoni Tuttle MD - 11/17/2022 3:16 PM ESTAddended by: YONI TUTTLE MD on: 11/17/2022 03:16 PM Modules accepted: Orders * Telephone Encounter - Yoni Tuttle MD - 11/17/2022 3:11 PM EST 09/22/22[facility] ([facility]) AHI by 3% desat 27.1, [...] EST Received from [facility] Sleep [facility] Report via fax. 8 pages indexed to chart. documented in this encounterEast [facility] Regional Hospital01-12-2023 History of Present illness Narrative* Annmarie [...] complete. You will be wearing a Data Supervisor Shearing around your neck like a necklace during the test. You must keepthis near you at all times. The Data Supervisor Shearing has an EVENT button. You will be [...] is inside your body. Return the Data Supervisor Shearing to the [facility] after your test is completed. Brittanie Gillespie RN documented in this encounterEast Ohio Regional Hospital01-09-2023 NotePROCEDURE: XR FOOT RT MIN 3 [...] ZAIDA ACOSTA Date: 2022-11-14 10:39[facility] HospitalDtvnedcb21-69-0912 NotePROCEDURE: XR FOOT RT MIN 3 VIEWS [...] authenticated by: NICKI DACOSTA Date: 2022-11-10 11:44[facility] HospitalGcapuoon16-70-8527 Miscellaneous Notes* Telephone Encounter - Annmarie Gillespie RN - 11/10/2022 9:07 AM EST Telephoned patient with [employer] procedure appointment reminder/instructions. Brittanie Gillespie RN documented in this encounterEast Ohio Regional Hospital01-04-2023 Miscellaneous Notes* Telephone Encounter - Regina [...] to make it legit. documented in this encounterEast [facility] Regional Hospital01-04-2023 Miscellaneous Notes* Telephone Encounter - Wali Doll - 11/09/2022 9:47 AM EST SENT PATIENTS RX TO PREFERRED LOCATION [facility] [phone] Wali Doll CMA documented in this encounterEast Ohio Regional Hospital01-03-2023 Miscellaneous Notes* Telephone Encounter - Regina Philippe - 11/08/2022 11:15 AM EST Per Soumya in provider services at [facility]. No prior auth is needed,coverage is active, patient can proceed with Smart Pill. Placed a new referral. Call Ref # [id number] * Telephone Encounter - Regina Philippe - 11/02/2022 3:51 PM EST Spoke with patient. Smart Pill is a covered benefit. Sent email to Smart Pill samples and repairs preparer and [facility] to assist in scheduling Smart Pill in [...] procedure, she can call Earlene Martin at [phone]. documented in this encounterEast Ohio Regional Hospital12-19-2022 Miscellaneous Notes* Telephone Encounter - Steffi [...] calling: self Call patient at: at home [phone] (home) [phone] (cell) Closing statement: Symptom Call: Thank you for calling [facility], your call is very important. A nurse will call in approximately 2-4 hours during business hours. If this is an emergency, please contact 911. Nati Hernandez documented in this encounterEast [facility] Regional Hospital12-13-2022 Miscellaneous Notes* Telephone Encounter - Brooklyn Valle LPN - 10/18/2022 2:43 PM EST Requested Prescriptions Pending Prescriptions Disp Refills Dexlansoprazole 60 mg CpDM [Pharmacy Med Name: DEXLANSOPRAZOLE DR 60 MG CAP] 30 capsule 5 Sig: take 1 capsule by mouth before breakfast Patient last seen 10/11/2022 documented in this encounterEast [facility] Hospital12-12-2022 NotePROCEDURE: XR FOOT RT MIN 3 [...] Electronically authenticated by: NICKI DACOSTA Date: 2022-10-17 18:06[facility]12-12-2022 NotePROCEDURE: XR FOOT RT MIN 3 VIEWS, [...] Electronically authenticated by: NICKI DACOSTA Date: 2022-10-17 18:06[facility]12-12-2022 Miscellaneous Notes* Telephone Encounter - Wali Doll - 10/17/2022 9:17 AM EST Faxed order, office notes, demographics, and sleep study to: D[facility] fax: [phone] DME ph: ALSO SENT A REQUEST FOR PTS PSG FROM [employer] [place] documented in this encounterEast Ohio Regional Hospital12-06-2022 History of Present illness Narrative* Isra [...] (FLONASE) 50 mcg/actuation nasal spray Use 1 [place] in each nostril once daily. carBAMazepine XR (TEGRETOL XR) 400 mg 12 hr tablet Take 400 mg by mouth q 12 HR. ARIPiprazole (ABILIFY) 30 mg tablet Take 30 mg by mouth once daily. albuterol HFA (PROVENTIL HFA, VENTOLIN HFA) 90 mcg/actuation inhaler inhale 2 puffs by mouth INTO THE LUNGS every 4 hours if needed qcfcvtpxhif-cxvkxzloz-cdmlgigl (TRELEGY ELLIPTA) 100-62.5-25 mcg Inhale 1 Puff [...] no edema RESPIRATORY: No dyspnea : neg CONSTRUCTION RIGGER: neg The remainder of the review of [...] Isra Masters DO 10/11/2022 documented in this encounterEast [facility] Regional Hospital12-05-2022 Evaluation note* Encounter Date Diagnosis Assessment [...] for rotator cuff healing or recurrent tear Node Management Other 12-01-2022 Evaluation note* Encounter Date Diagnosis [...] note writ ten by Wanda Yang LPN, Rn Surgery Icu. Edited and approved by Dr. Beto Snyder MD. Node Management Other 11-17-2022 Evaluation note* Encounter Date Diagnosis [...] educated regarding the risks and benefits of adjunct faculty for medical terminology opioid use. She understands the associated risks [...] note writ ten by Lupillo Amezquita MA, Rn Surgery Icu. Edited and approved by Dr. Beto Snyder MD. Node Management Other 11-17-2022 Evaluation note* Encounter Date Diagnosis Assessment Notes Treatment Notes Treatment Clinical Notes Sep, Lumbosacral spondylosis without myelopathy (ICD-10 - M47.817) Node Management Other 11-09-2022 Evaluation note* Encounter Date Diagnosis [...] note writ ten by Wanda Yang LPN, Rn Surgery Icu. Edited and approved by Dr. Beto Snyder MD. Node Management Other 09-21-2022 NotePROCEDURE: XR ANKLE RT MIN 3 VIEWS, XR FOOT RT MIN 3 VIEWS COMPARISON: 01/06/2021 HISTORY: Pain of right ankle joint FINDINGS: BONES:Remote osteotomy head of the first metatarsal fixed with a single screw. No acute fracture or dislocation. SOFT TISSUES:Negative. No visible soft tissue swelling. EFFUSION:None visible. OTHER: Negative. IMPRESSION: No acute abnormality Electronically authenticated by: NICKI DACOSTA Date: 2022-07-27 19:[address] [place], [place] 9286109-21-2022 NotePROCEDURE: XR ANKLE RT MIN 3 VIEWS, [...] NICKI DACOSTA Date: 2022-07-27 19:10[facility] HospitalWcmwtrvh26-95-2148 Miscellaneous Notes* Telephone Encounter - Silvia Ybarra - 07/26/2022 2:56 PM EDT PA for Dexlansoprazole initiated electronically. Awaiting response [employer] ID# [id number] * Telephone Encounter - Tracy Khan PSS - 07/26/2022 1:43 PM EDT Patient needs a prior authorization Medication Order name: Dexlansoprazole 60 mg CpDM Medication: DEXLANSOPRAZOLE 60 MG CAPSULE,BIPHASE DELAYED RELEASE [[id number]] Dispense as Written: No documented in this encounterEast [facility] Regional Hospital09-20-2022 History of Present illness Narrative* Mary [...] in the AM and 4 mg PM oomvecxjxdc-zpvjqypan-evuoypig (TRELEGY ELLIPTA) 100-62.5-25 mcg Inhale 1 Puff [...] (FLONASE) 50 mcg/actuation nasal spray Use 1 [place] in each nostril once daily. carBAMazepine XR [...] which included preparing to see the patient, qhaq-zv-hgbf patient care, completing clinical documentation, obtaining and/or reviewing separately obtained history, performing a medically appropriate examination, counseling and educating the pat ient/family/caregiver, ordering medications, tests, or procedures, and care coordination (not separately reported). Mary Obrien MD Colorectal Surgery documented in this encounterEast Ohio Regional Hospital09-20-2022 Nurse Note* Re Sierra MA - 07/26/2022 11:12 AM EDT What is the reason for your visit today? Established patient presents for post op. Who is your referring physician? Are you having poor oral intake? NO Have you had unintentional weight loss of 15 lbs/7 Kg in the last 3-6 months? NO Bowels: Wound: none Temperature: No Drains: No documented in this encounterEast [facility] Regional Hospital08-04-2022 NotePROCEDURE: In the coronal projection, without [...] and signed by Quinton Carson on 06/09/[address] [place] [address] Medical [id number] Miscellaneous Notes* Telephone Encounter - Raquel Mullen - 06/07/2022 3:34 PM EDT Patient needs RX sent to [facility]. The previous was sent to [...] process accordingly. Raquel Mullen documented in this encounterEast Ohio Regional Hospital07-21-2022 Evaluation note* Encounter Date Diagnosis Assessment [...] note writ ten by Lupillo Amezquita MA, Rn Surgery Icu. Edited and approved by Dr. Beto Snyder MD. Node Management Other 07-05-2022 Evaluation note* Encounter Date Diagnosis [...] in writing by [facility] document. Node Management Other [id number] Miscellaneous Notes* Telephone Encounter - Jet Wong [...] concerns at this time. documented in this encounterEast Ohio Regional Hospital06-21-2022 Miscellaneous Notes* Telephone Encounter - Jet [...] procedure on 03/28. Thanks! documented in this encounterEast Ohio Regional Hospital06-17-2022 History of Present illness Narrative* Jessi [...] (FLONASE) 50 mcg/actuation nasal spray Use 1 [place] in each nostril once daily. carBAMazepine XR [...] THE LUNGS every 4 hours if needed iqdvkwgwbvb-eumfiankx-texgvcsa (TRELEGY ELLIPTA) 100-62.5-25 mcg Inhale 1 Puff [...] Sheets APRN.KWESI Colorectal Surgery documented in this encounterEast Ohio Regional Hospital06-17-2022 Nurse Note* Mary Mena MA - 04/22/2022 12:06 PM EDT .What is the reason for your visit today? Post op Who is your referring physician? Self Are you having poor oral intake? NO Have you had unintentional weight loss of 15 lbs/7 Kg in the last 3-6 months? NO Bowels: regular Wound: none Temperature: No Drains: No documented in this encounterEast Ohio Regional Hospital06-02-2022 Miscellaneous Notes* Telephone Encounter - Rachael - 04/07/2022 12:35 AM EDT Record ID: [id number] Patient name: Mary Leal Date: April [birth year], [...] likely is it that you would recommend [facility] to a friend or family member? -> likely Please tell me what you liked best about your hospital experience: -> The nurses documented in this encounterEast Ohio Regional Hospital05-31-2022 NoteHNO ID: [id number] Author: Pravin Ladd MD Service: Colorectal Author Type: Resident Type: Progress Notes Filed: 04/05/2022 7:52 AM Note Text: COLORECTAL SURGERY PROGRESS NOTE Mary Leal [id number] ASSESSMENT AND PLAN Mary Leal is a [...] - General Pravin Ladd MD General Surgery residentKindred Hospital NortheastBmitfhfv92-39-1208 NoteHNO ID: [id number] Author: Nita Lamas MD Service: Colorectal Author Type: Fellow Type: Progress Notes Filed: 04/04/2022 9:40 AM Note Text: COLORECTAL SURGERY PROGRESS NOTE Mary Leal [id number] ASSESSMENT AND PLAN aMry Leal is a 51 year old female [...] Nita Lamas MD Colorectal Fellow 04/04/2022 9:40 [facility]05-29-2022 NoteHNO ID: [id number] Author: Pravin Ladd MD Service: Colorectal Author Type: Resident Type: Progress Notes Filed: 04/03/2022 8:03 AM Note Text: COLORECTAL SURGERY PROGRESS NOTE Mary Leal [id number] ASSESSMENT AND PLAN Mary Leal is a [...] - General Pravin Ladd MD General Surgery ResidentKindred Hospital NortheastJlcmitka98-55-6929 NoteHNO ID: [id number] Author: Nancy Cadena MD Service: Colorectal Author Type: Resident Type: Progress Notes Filed: 04/02/2022 8:34 AM Note Text: COLORECTAL SURGERY PROGRESS NOTE Mary Leal [id number] ASSESSMENT AND PLAN Mary Leal is a [...] Nancy Cadena MD General Surgery Resident, PGY-2 [id number] [id number] NoteHNO ID: [id number] Author: Nancy Cadena MD Service: Colorectal Author Type: Resident Type: Progress Notes Filed: 04/01/2022 7:15 AM Note Text: Attestation signed by Mary Obrien MD at 04/01/2022 7:21 PM [facility] STAFF PHYSICIAN NOTE OF PERSONAL [...] 2022 COLORECTAL SURGERY PROGRESS NOTE Mary Leal [id number] ASSESSMENT AND PLAN Mary Leal is a [...] Nancy Cadena MD General Surgery Resident, PGY-2 [id number] [id number] NoteHNO ID: [id number] Author: Yolanda Lamb MD Service: Colorectal Author Type: Resident Type: Progress Notes Filed: 03/31/2022 9:08 AM Note Text: COLORECTAL SURGERY PROGRESS NOTE Mary Leal [id number] ASSESSMENT AND PLAN Mary Leal is a [...] RESECTION AND ANASTOMOSIS - General Yolanda Lamb MDKindred Hospital NortheastJourranp17-01-2821 NoteHNO ID: [id number] Author: Pravin Ladd MD Service: Colorectal Author [...] 2022 COLORECTAL SURGERY PROGRESS NOTE Mary Leal [id number] ASSESSMENT AND PLAN Mary Leal is a 51 year old female with PMHx Asthma, HTN, BPD, Dyslipidemia and colonic inertia who is now s/p Hand assisted TAC, EI takedown + OANH 03/28 - D/C PEEL 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 TENDER - Advance to GI soft diet - [...] RESECTION AND ANASTOMOSIS - General Pravin Ladd MDKindred Hospital NortheastMufvlquy47-56-9985 NoteHNO ID: [id number] Author: ELIZABETH Dias Service: Care Management Author Type: Motorcoach Driver Type: Care Mgt Initial Assessment Filed: 03/29/2022 [...] time ADVANCE DIRECTIVES Current Advance Directive: None Supervisor Public Health Nursing Attempted to Assist with AD Completion: Yes [...] Housing Stability: Not on file PATIENT SCREEN Patient/Checkout Supervisor Stated Goals: To be cured/healed Under the [...] March 29, 2022 TIME: 3:45 PM PHONE: [phone] Dcucqltb73-58-6956 NoteHNO ID: [id number] Author: Pravin Ladd MD Service: Colorectal Author Type: Resident Type: Progress Notes Filed: 04/01/2022 5:50 AM Note Text: COLORECTAL SURGERY PROGRESS NOTE Mary Leal [id number] ASSESSMENT AND PLAN Mary Leal is a 51 year old female with PMHx Asthma, HTN, BPD, Dyslipidemia and colonic inertia who is now s/p Hand assisted TAC, EI takedown + OANH 03/28 - PEEL OVEN TENDER for pain control - Magnesium replacement for [...] RESECTION AND ANASTOMOSIS - General Pravin Ladd MDKindred Hospital NortheastCjuinruk39-89-5946 NoteHNO ID: [id number] Author: Nathanael Craig DO Service: Anesthesiology Author Type: Anesthesiologist Type: Anesthesia Procedure Notes Filed: 03/28/2022 4:16 PM Note Text: ANESTHESIOLOGY PROCEDURE NOTE Peripheral Nerve Block General Information Procedure Start Time/Medication Administration: 03/28/2022 3:50 PM Procedure End time: 03/28/2022 3:55 PM Patient location during procedure: OR Timeout Performed Pre-procedure: timeout performed Consent Obtained: Yes 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 arm band Reason for block: post-op [...] identity confirmed: arm band and care steam generating powerplant mechanic Reason for block: post-op pain management/at surgeon's [...] March 28, 2022 TIME: 4:14 PM CSN: [id number] NoteHNO ID: [id number] Author: Adriana Stanley APRN.CRNA Service: Anesthesiology Author Type: Nurse Machine Maintenance Supervisor Type: Anesthesia Procedure Notes Filed: 03/28/2022 9:49 AM Note Text: ANESTHESIOLOGY PROCEDURE NOTE Airway General Information Procedure Start Time/Medication Administration: 03/28/2022 9:21 AM Patient location during procedure: OR 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, care steam generating powerplant mechanic and patient Staffing WASH CREW PERSON: Adriana Stanley APRN.WASH CREW PERSON Performed by: BECCA Indications and Patient Condition [...] March 28, 2022 TIME: 9:49 AM CSN: [id number] [id number] NoteHNO ID: [id number] Author: Adriana Stanley APRN.CRNA Service: Anesthesiology Author Type: Nurse Machine Maintenance Supervisor Type: Anesthesia Procedure Notes Filed: 03/28/2022 9:49 [...] March 28, 2022 TIME: 9:48 AM CSN: [id number] Miscellaneous Notes* Telephone Encounter - Jet Wong [...] colon. Would like a call back at [phone] documented in this encounterEast Ohio Regional Hospital05-10-2022 Miscellaneous Notes* Telephone Encounter - Jennie Moreno RN - 03/15/2022 2:39 PM EDT Outside medical record EGD H Pylori biopsy received by fax. Scanned into [facility] under scanned documents. Hard copy handed to Dr. Masters. Per Dr Masters- please call patient and let her know the H Pylori biopsy is negative. Called patient . Message relayed. No questions at this time. * Telephone Encounter - Karthikeyan Turk RN - 03/15/2022 2:21 PM EDT Called [facility] and I was transferred to medical records. Requesting a cover sheet with the request result be faxed to them at [phone]. H Pylori result request faxed with confirmation. * Telephone Encounter - Karthikeyan Turk RN - 03/15/2022 2:21 PM EDT Images from the original note were not included. Isra Ila Masters DO P Sp Dd Clinical Pool Please contact [facility] [phone] to see if the H pylori biopsy is back yet from her EGD there documented in this encounterEast Ohio Regional Hospital05-10-2022 Evaluation note* Encounter Date Diagnosis Assessment [...] note writ ten by Wanda Yang LPN, Rn Surgery Icu. Edited and approved by Dr. Beto Snyder MD. Node Management Other 05-10-2022 Miscellaneous Notes* Telephone Encounter - Silvia Ybarra - 03/15/2022 1:24 PM EDT PA for Dexilant renewal initiated through [facility]. Awaiting response ID# [id number] Rx BIN [id number] Rx PCN MCAIDOH Rx Grp [id number] documented in this encounterEast Ohio Regional Hospital05-10-2022 Miscellaneous Notes* Telephone Encounter - Jet Wong RN - 03/15/2022 9:28 AM EDT She called the office with complaints of dark red blood in her ostomy bag for the last 2 weeks. [place] in [place] when it started. She had an EGD in [place] that showed gastritis. She followed up with [...] concerns at this time. documented in this encounterEast Ohio Regional Hospital05-10-2022 History of Present illness Narrative* Isra Masters, - 03/15/2022 8:53 AM EDT FOLLOW UP [...] seem be musculoskeletal in nature.EGD done in [facility] showed some gastritis and duodenitis. Current [...] (FLONASE) 50 mcg/actuation nasal spray Use 1 [place] in each nostril once daily. carBAMazepine XR [...] THE LUNGS every 4 hours if needed xdwhluffenp-xmiyynxyh-mronbjgj (TRELEGY ELLIPTA) 100-62.5-25 mcg Inhale 1 Puff [...] no edema RESPIRATORY: No dyspnea : neg CONSTRUCTION RIGGER: neg The remainder of the review of [...] Isra Masters DO 03/15/2022 documented in this encounterEast Ohio Regional Hospital05-09-2022 Instructions* Patient Instructions* Urmila Alexander APRN.[facility] - 03/14/2022 10:43 AM EDT PATIENT PREOPERATIVE INSTRUCTIONS Mary Obrien MD has scheduled you for your procedure at [facility]: [facility]: [phone] --[id number] [address]. Please check in on the1st floor at [...] Procedures: - YOU MUST HAVE A RESPONSIBLE LEGAL INTERN TAKE YOU HOME. A NUCLEAR PLANT OPERATOR OR WATER AND GAS HELPER CANNOT BE MADE A RESPONSIBLE LEGAL INTERN. - We recommend that a responsible person [...] Advance Directive, please fax a copy to [phone] or email to for it to be [...] your chart that day. [facility] History and physical note * Urmila Alexander APRN.CNP - 03/14/2022 10:30 AM EDT Images from the original note were not included. HISTORY AND PHYSICAL EXAMINATION SERVICE DATE: 03/14/2022 SERVICE TIME: 11:03 AM PRIMARY CARE PHYSICIAN: Eliceo Gómez DO REASON FOR VISIT: Mary Zoya Ornelasgs [...] fevers. Neurological: No history of TIA's, stroke, OPERATIONS MANAGER tumor, impaired sensorium, hemiplegia, paraplegia orquadraplegia. [...] > 1 time per night or hematuria. CONSTRUCTION RIGGER: Negative for abnormal vaginal bleeding, abnormal vaginal [...] TONSILLECTOMY HX 07/2021 revision VAGINAL HYSTERECTOMY 2014 [facility] 10/2015 for endometriosis, has remaining both [...] every 4 hours if needed Taking Yes xzavxxkcnbf-xkmabzhpr-nuldeybt (TRELEGY ELLIPTA) 100-62.5-25 mcg Inhale 1 Puff [...] (FLONASE) 50 mcg/actuation nasal spray Use 1 [place] in each nostril once daily. No medication [...] or any previous visit (from the past 54206 hour(s)). EKG: Assessment HTN (hypertension) Assessment: Managed [...] of difficult airway No abnormal airway history [id number] Score: Age: <65 Sex: Female Hypertension history: [...] 10:30 AM PAGER/CONTACT #: documented in this [facility]22 Miscellaneous Notes* Telephone Encounter - Isra [...] it legit. Please advise. documented in this [facility]04-15-2022 Instructions* Patient Instructions* Nelsy Chávez APRN.CNP - 02/18/2022 1:18 PM EDT Healing as expected from surgery. You have a pinpoint area of suture just under the vaginal epithelium surface that may need more time to fully heal. Please call the office if you would like to try vaginal estrogen cream or with any questions/concerns. documented in this [facility]04-[facility]22 History of Present illness Narrative* Nelsy [...] no Pain: no Abnormal Vaginal Discharge: no CONSTRUCTION RIGGER HISTORY: Last pap: cannot remember; Last mammogram: She has never had a mammogram LMP: No LMP recorded. Patient has had a hysterectomy.; Menopause n/a: Menstrual history: NA; Deliveries: I have confirmed and edited as necessary, the PFSH obtained by others. Nelsy Chávez APRN.LOCKER ROOM SUPERVISOR Emergency Medical Technician Basic offered: Patient declines. OBJECTIVE: There were no [...] if this helps. She is traveling to [place] to see her ailing father for two weeks and would like to wait for now to see if things resolve. She knows she can call the office if she changes her mind and would like to trial vaginal estrogen Nelsy Chávez APRN.KWESI documented in this [facility] History of Present illness Narrative* Flaca [...] 15 Flaca Bartholomew PT documented in this [facility]04-[facility] Nurse Note* Re Sierra MA - [...] Temperature: No Drains: No documented in this encounterEast [facility]04-05-2022 History of Present illness Narrative* Mary Obrien MD - 02/08/2022 2:40 PM EDT COLORECTAL SURGERY February 08, 2022 Mary D Elvis Chief Complaint: follow up History of Present Illness: Mary D Elvis is a 51 year old female presents [...] TONSILLECTOMY HX 07/2021 revision VAGINAL HYSTERECTOMY 2014 [facility] 10/2015 for endometriosis, has remaining both [...] (FLONASE) 50 mcg/actuation nasal spray Use 1 [place] in each nostril once daily. carBAMazepine XR [...] THE LUNGS every 4 hours if needed ufohnkgxvzf-xjntdxirn-piekaayw (TRELEGY ELLIPTA) 100-62.5-25 mcg Inhale 1 Puff [...] medical complications of surgery including DVT/PE, PNA, OR, stroke, and . The patient understands these risks and is in agreement with proceeding. Medical Decision Making: Data Reviewed: Tests & Documents Reviewed/ordered: Review of prior notes from myself, OR, Dr. Wang Review of prior operative reports I have discussed Mary Leal's treatment plan and/or results with the patient. Mary Obrien MD Colorectal Surgery documented in this [facility]04-[facility]22 History of Present illness Narrative* Magali Mitchell APRN.LOCKER ROOM SUPERVISOR - 02/08/2022 11:04 AM EDT Female Pelvic [...] you received about pain medications helpful? Yes Emergency Medical Technician Basic offered:Patient declines OBJECTIVE: BP 113/76 Pulse 74 [...] 6 month Patient expressed understanding. Magali Mitchell APRN.LOCKER ROOM SUPERVISOR documented in this encounter[facility]03-29-2022 Miscellaneous Notes* Telephone Encounter - Steffi Ross LPN - 02/01/2022 11:08 AM EDT [facility] 06-10-21 Pharmacy and Rx request verified. Please file if appropriate. Thank you Steffi Ross LPN documented in this encounterEast [facility]03-28-2022 NoteHNO ID: [id number] Author: Newton Woodward, PT Service: ? Author [...] Home;Specialty Service Patient transferring care to: [facility]- Flaca Bartholomew SUBJECTIVE: Patient Reason for Visit: [...] untimed codes) : 40 Newton Woodward PT, [facility]03-28-2022 History of Present illness Narrative* Newton Woodward, PT - 01/31/2022 10:42 AM EDT Episode Visit Count: 3 Therapist That Will Oversee The Plan Of Care: [place] then [place] to [place] Start of Care Date: 01/18/22 Onset Date: [...] Home;Specialty Service Patient transferring care to: [facility]- Flaca Bartholomew SUBJECTIVE: Patient Reason for Visit: [...] Newton Woodward PT, DPT documented in this encounter[facility]03-21-2022 NoteHNO ID: [id number] Author: Newton Woodward PT Service: ? Author [...] SPORTS THERAPY PHYSICAL THERAPY TREATMENT NOTE ASSESSMENT: Marymigue Leal tolerated the session with no issues. [...] codes) : 45 Newtonsergey Dobsonadele Woodward PT, [facility]03-15-2022 NoteHNO ID: [id number] Author: Jessi Isaacs, PT Service: ? Author [...] Planned: 8 Planned Treatment Interventions: Therapeutic exercise (21215);Neuromuscular re-education (10465);Manual therapy (77671);Therapeutic activities (98499);Self-usp management (13245);Patient/Family/Caregiver Education PLAN FOR NEXT VISIT: PFM dynamics; biofeedback Patient demonstrates good understanding of plan of care and treatment. The above goals and plan of care were discussed and agreed upon by patient/family. Transfer of Care Due To: Closer to Home (patient to transfer in February 2022) Patient transferring care to: [facility] Fl[facility] Bartholomew SUBJECTIVE: Mary Leal is a [...] life. 52 (more content not included)...[id number] NoteHNO ID: [id number] Author: Moni Munguia RN Service: Care Management Author Type: Registered Nurse Type: Care Mgt Progress Note Filed: 12/27/2021 4:17 PM Note Text: CARE MANAGEMENT DISCHARGE NOTE SERVICE DATE: 12/27/2021 SERVICE TIME: 4:14 PM LOS: 3 days Admission Date: 12/24/2021 DISCHARGE ARRANGEMENT (list agency and phone number) Discharge Arrangement: Home with Home Health Provider Name: [address] CAREGIVER ASSESSMENT: HANDOFF COMMUNICATION: Handoff to: Primary Care Physician Primary Care Physician Name/Phone: Eliceo Gómez Jr [phone] TRANSPORTATION ARRANGEMENTS: Transportation Arrangements: N/A The Pt is accepted by [address] for new ostomy care. The SOC will be within 24 to 48 hrs. The pt will be contacted directly with the SOC. The Pt verbalized agreement with this dc plan. SIGNATURE: Moni Munguia RN PATIENT NAME: Mary Leal DATE: December 27, 2021 TIME: 4:14 PM PAGER/CONTACT #: [phone] NoteHNO ID: [id number] Author: Parish Celeste DO Service: Colorectal Author [...] - Pain and nausea control -> d/c PEEL OVEN TENDER - D/c entereg - Culturelle - Continue [...] Date 12/26/21 07 - 12/27/21 0659 12/27/21 0700 - 12/28/21 0659 Shift 5059-9885 0168-4470 9405-3209 24 Hour Total 1266-6333 0019-7094 5732-2539 24 Hour Total INTAKE PO 60 60 PO 60 60 IV 2100 2100 Volume (mL) (lactated ringers iv infusion) 2100 2100 Shift Total 2160 2160 OUTPUT Urine 1518 239 6253 2300 200 200 Void (ml) 300 1000 1300 200 200 Output ( Indwelling Urinary Catheter 12/24/21 Call 16 Fr) 1000 1000 Emesis 0 0 Emesis (ml) 0 0 Ostomy 250 125 375 Ileostomy 1 250 125 375 # of BMs Number of BMs 0 x 0 x Shift Total 5314 150 0996 2675 200 200 Weight (kg) 82.1 82.1 82.1 82.1 82.1 82.1 82.1 82.1 Recent Labs 12/26/21 0755 12/25/21 0606 WBC -- 5.96 HB -- 11.6 HCT -- 35.2* PLT -- 271 NA 139 141 K 4.0 4.0 CHLOR 102 104 CO2 28 28 CREAT 0.62* 0.72 BUN 10 12 GLUC 71 91 CA 8.5 8.5 Parish Celeste DO General Surgery, PGY-4 [phone] After 6 pm and on the weekends please page [phone] 12-26-2021 NoteHNO ID: [id number] Author: Jenifer Ayala MD Service: Colorectal Author Type: Fellow Type: Progress Notes Filed: 12/26/2021 12:13 PM Note Text: GENERAL SURGERY PROGRESS NOTE Name: Mary Leal 12/26/2021 12:11 PM Interval Events: Patient doing well post-operatively. No acute events overnight. Tolerating CLD diet without nausea or vomiting. Stoma productive of bilious fluid + gas Pain well controlled with PEEL OVEN TENDER + oral pain medication (feels most relief from po oxycodone). Assessment and Plan: 51 year old female with pelvic organ prolapse and chronic constipation, likely slow transit but with possible component of pelvic outlet obstruction and with discordant testing. Patient underwent laparoscopic protopexy on 12/24/21 surgery was uneventful. Post-operative course has been uncompliacted. Pain control- Tylenol Gabapentin Toradol PEEL OVEN TENDER: Dilaudid, tegretol, klonopin, requip, trintellix, oxycodone Cardiac- [...] any questions or concerns page [facility] Blue [phone] Objective Physical exam: BP 117/66 Pulse 77 [...] of bilious fluid + gas Date 12/25/21 0700 - 12/26/21 0659 12/26/21 0700 - 12/27/21 0659 Shift 8743-1362 3339-0677 3816-2473 24 Hour Total 9432-5735 2178-8218 8244-6168 24 Hour Total INTAKE PO 60 60 PO 60 60 IV 213 668 881 Volume (mL) (lactated ringers iv infusion) 213 668 881 Shift Total 273 668 941 OUTPUT Urine 656 047 8659 1000 Void (ml) 0 0 Output ( Indwelling Urinary Catheter 12/24/21 Call 16 Fr) 205 731 8280 1000 Emesis 0 0 Emesis (ml) 0 0 Ostomy 100 100 Ileostomy 1 100 100 # of BMs Number of BMs 0 x 0 x Shift Total 141 357 5559 1000 Weight (kg) 82.1 82.1 82.1 82.1 [...] Diagnosis Date Noted - Pelvic floor dysfunction 12/24/2021[id number] NoteHNO ID: [id number] Author: Sonido Owne MD Service: Colorectal Author Type: Resident Type: [...] been uncompliacted. Pain control- Tylenol Gabapentin Toradol PEEL OVEN TENDER: Dilaudid, tegretol, klonopin, requip, trintellix Cardiac- Vitals: [...] Owen MD General Surgery PGY 2 Pg [phone] For any questions or concerns page [facility] Blue [phone] Objective Physical exam: BP 111/61 Pulse 86 [...] 0659 12/25/21 07 - 12/26/21 0659 Shift 0343-6521 9120-9190 1859-3353 24 Hour Total 5107-7688 0808-3299 2483-4307 24 Hour Total INTAKE PO 240 120 360 PO 240 120 360 IV 3100 3100 Volume (mL) (lactated ringers iv infusion) 1800 1800 Volume (mL) (lactated ringers iv infusion) 1300 1300 Shift Total 3100 883 181 7496 OUTPUT Urine 200 536 514 6563 OR Urine Output 200 200 Output ( Indwelling Urinary Catheter 12/24/21 Call 16 Fr) 300 500 800 Emesis 0 0 0 Emesis (ml) 0 0 0 Ostomy 0 0 0 Ileostomy 1 0 0 0 # of BMs Number of BMs 0 x 0 x 0 x Blood 50 50 Estimated Blood loss 50 50 Shift Total 250 669 499 2538 Weight (kg) 82.1 82.1 82.1 82.1 82.1 [...] Diagnosis Date Noted - Pelvic floor dysfunction 12/24/2021[facility]Hnn[facility]vwv45-58-2613 NoteHNO ID: [id number] Author: Adriana Stanley APRN.CRNA Service: Anesthesiology Author Type: Nurse Machine Maintenance Supervisor Type: Anesthesia Procedure Notes Filed: 12/24/2021 8:44 [...] December 24, 2021 TIME: 8:44 AM CSN: [id number] NoteHNO ID: [id number] Author: Adriana Stanley APRN.CRNA Service: Anesthesiology Author Type: Nurse Machine Maintenance Supervisor Type: Anesthesia Procedure Notes Filed: 12/24/2021 8:44 AM Note Text: ANESTHESIOLOGY PROCEDURE NOTE Airway General Information Procedure Start Time/Medication Administration: 12/24/2021 8:22 AM Patient location during procedure: OR 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 Edited and approved by Dr. Beto Snyder MD. Node Management Other 11-01-2021 Evaluation note* Encounter Date Diagnosis [...] note writ ten by Lupillo Amezquita MA, Rn Surgery Icu. Edited and approved by Dr. Beto Snyder MD. Node Management Other 10-14-2021 Evaluation note* Encounter Date Diagnosis [...] no improvement in 2 to 3 days. Node Management Other 10-08-2021 Evaluation note* Encounter Date Diagnosis [...] in writting by [facility] At Home document Node Management Other 10-07-2021 Evaluation note* Encounter Date Diagnosis [...] Aug, Other chronic pain (ICD-10 - G89.29) Node Management Other 09-22-2021 Evaluation note* Encounter Date Diagnosis [...] Jul, Other chronic pain (ICD-10 - G89.29) Node Management Other 03-01-2021 Note [id number]:127[facility] 01-04-2021 NoteCystoscopy with Botox injection ? [...] a fever over 100 degrees.[facility] 11-11-2020 NoteChief Complaint Pt is here [...] Dawna Marmolejo MD [address] [place] [address]- [phone] Additional Instructions: F/u in 1yr. Patient Education [...] disorder (more content not included)...[facility] Comment on above:Result Comment: Electronically Signed By: Dawna Marmolejo MD\.br\Date and Time Signed: 11/11/2111:16 EST\.br\Electronically Co-Signed By: Christy Gill MA\.br\Date and Time Co-Signed: 11/11/20 12:07 [id number]:127[facility] Narrative - Reported* MARY LEAL is being seen for an initial evaluation of. * 52-year-old female seen in cardiology consultation at the request of her primary care physician forelevated troponin while in [facility] this past spring that was associated with a GI bleed/gastritis. * Patient recently underwent large bowel resection details of which are unknown and I suspect possibly consistent with ulcerative colitis but again unknown pathology. She had a diverting colostomy with3 anastomosis performed. While in [place] with her GI bleed and primarily gastric [...] * I believe minor troponin elevation in [place] was simply at small type II non- OR troponin elevationrelated to inflammation and gastritis and [...] colectomy. She can follow-up as needed otherwise. [facility] 250 DO Work Phone: Evaluation note* Diagnosis Pelvic floor dysfunction- Primary Pelvic muscle wasting Lack of coordination Follow-up examination after colorectal surgery Follow-up examination, following other surgery [facility] Diagnosis Gastroesophageal reflux disease, unspecified whether esophagitis present [facility] Follow-up examination after colorectal surgery- Primary Follow-up examination, following other surgery [facility] Diagnosis Post-operative state- Primary Other postprocedural status Yeast infection of the skin Candidiasis of skin and nails [facility] Diagnosis Pelvic floor dysfunction- Primary Pelvic muscle wasting Lack of coordination Follow-up examination after colorectal surgery Follow-up examination, following other surgery [facility] Diagnosis Postoperative state- Primary Other postprocedural status Attention to ileostomy (HCC) Attention to ileostomy [facility] Preop examination- Primary Preoperative [...] Attention to ileostomy documented in this encounter [facility] note* Diagnosis Gastroesophageal reflux disease, unspecified whether esophagitis present Chronic idiopathic constipation Unspecified constipation Attention to ileostomy ([facility]) Attention to ileostomy documented in this encounter [facility] note* Diagnosis Follow-up examination after colorectal surgery- Primary Follow-up examination, following other surgery Pelvic floor dysfunction Pelvic muscle wasting documented in this encounter [facility] noteNo InformationNoOraHealth Other evaluation [facility]NoOraHealth Other evaluation note* Diagnosis Follow-up examination after colorectal surgery- Primary Follow-up examination, following other surgery Periumbilical abdominal pain Abdominal pain, periumbilic Outlet dysfunction constipation Colonic inertia Other functional disorders of intestine documented in this encounter [facility] noteNo assessment information [facility] Work Phone: Evalutxxjy note* Diagnosis Gas bloat syndrome- Primary Chronic idiopathic constipation Unspecified constipation Gastroparesis documented in this encounter [facility] note* Diagnosis Gastroesophageal reflux disease, unspecified whether esophagitis present documented in this encounter [facility] note* Diagnosis Gastroparesis- Primary documented in this encounter [facility] note* Diagnosis CHUCKIE (obstructive sleep apnea)- Primary Obstructive sleep apnea (adult) (pediatric) documented in this encounter [facility] note* Diagnosis Pre-op exam- Primary Preoperative examination, unspecified Primary hypertension Unspecified essential hypertension Mild persistent asthma without complication Unspecified asthma Gastroparesis CHUCKIE (obstructive sleep apnea) Obstructive sleep apnea (adult) (pediatric) documented in this encounter [facility] note* Diagnosis CHUCKIE (obstructive sleep apnea)- Primary Obstructive sleep apnea (adult) (pediatric) documented in this encounter [facility] note* Diagnosis Chronic idiopathic constipation- Primary Unspecified constipation Nausea Nausea alone documented in this encounter [facility] note* Diagnosis Gastroesophageal reflux disease with esophagitis without hemorrhage- Primary documented in this encounter [facility] note* Diagnosis Colonic inertia- Primary Other functional disorders of intestine Pelvic floor dysfunction Pelvic muscle wasting Nausea Nausea alone Gastroparesis documented in this encounter [facility] note* Diagnosis Pylorospasm- Primary Functional dyspepsia Dyspepsia and other specified disorders of function of stomach Gastroesophageal reflux disease with esophagitis without hemorrhage documented in this encounter [facility] note* Diagnosis Gastroesophageal reflux disease, unspecified whether esophagitis present documented in this encounter [facility] note* Diagnosis CHUCKIE (obstructive sleep apnea)- Primary Obstructive sleep apnea (adult) (pediatric) documented in this encounter [facility] note* Diagnosis Pylorospasm- Primary Functional dyspepsia Dyspepsia and other specified disorders of function of stomach Gastroesophageal reflux disease with esophagitis without hemorrhage documented in this encounter [facility] note* Diagnosis Gastroparesis- Primary documented in this encounter [facility] note* Diagnosis Preop examination- Primary Preoperative examination, unspecified Nausea Nausea alone CHUCKIE (obstructive sleep apnea) Obstructive sleep apnea (adult) (pediatric) Mild persistent asthma without complication Unspecified asthma Gastroesophageal reflux disease, unspecified whether esophagitis present Gastroparesis documented in this encounter [facility] note* Diagnosis 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 Personal history of other diseases of digestive system documented in this encounter [facility] note* Diagnosis Gastroesophageal reflux disease, unspecified whether esophagitis present documented in this encounter [facility] note* Diagnosis Incomplete bladder emptying- Primary Constipation, unspecified constipation type Urinary urgency Urgency of urination Urinary frequency Nocturia documented in this encounter [facility] note* Diagnosis Upper abdominal pain- Primary Abdominal pain, other specified site documented [facility] this [facility]* Diagnosis Burning with urination- Primary Dysuria documented in this encounter [facility] note* Diagnosis Bety vaginitis Candidiasis of vulva and vagina documented in this encounter [facility] note* Diagnosis Pre-op examination- Primary Preoperative [...] urge Urge incontinence [facility]* Diagnosis Educational circumstances- Primary Educational circumstance Urinary urgency Urgency of urination Urinary frequency OAB (overactive bladder) Hypertonicity of bladder Urinary incontinence, urge Urge incontinence [facility]* Diagnosis Post-operative state- Primary Other postprocedural status [facility]* Diagnosis Procedure and treatment not carried out for other reasons- Primary [facility]* Diagnosis Post-operative state- Primary Other postprocedural status Vaginal burning Other specified symptom associated with female genital organs [facility]* Diagnosis Vaginal burning- Primary Other specified symptom associated with female genital organs [facility]* Diagnosis [place] grade D esophagitis Early satiety Unintentional weight loss Loss of weight Gastroparesis [facility] Diagnosis Gas bloat syndrome [facility]* Diagnosis Pain Generalized pain Pre-op evaluation- [...] apnea (adult) (pediatric) [facility] Diagnosis Pre-op evaluation- Primary Preoperative examination, [...] Preoperative examination, unspecified Attention to ileostomy ([facility]) Attention to ileostomy Primary hypertension Unspecified essential hypertension Gastroparesis Gastroesophageal reflux disease, unspecified whether esophagitis present Mild persistent asthma without complication Unspecified asthma Bipolar 1 disorder ([facility]) Bipolar I disorder, most recent episode (or current) unspecified Obesity (BMI 30.0-34.9) Obesity, unspecified Pre-op exam- Primary Preoperative examination, unspecified Primary hypertension Unspecified essential hypertension Mild persistent asthma without complication Unspecified asthma Gastroparesis CHUCKIE (obstructive sleep apnea) Obstructive sleep apnea (adult) (pediatric) [facility] Diagnosis Chronic abdominal pain- Primary Abdominal pain, unspecified site Avoidant-restrictive food intake disorder (ARFID) Bloating Flatulence, eructation, and gas pain Gastroparesis [facility] Diagnosis Anxiety- Primary Anxiety state, [...] Gastroparesis Mild intermittent asthma, unspecified whether complicated ([facility] Diagnosis Oral candidiasis- Primary Candidiasis of mouth Tongue pain Glossodynia [facility] Diagnosis Chronic diarrhea- Primary Diarrhea Chronic abdominal pain Abdominal pain, unspecified site Bloating Flatulence, eructation, and gas pain Inadequate oral intake Other symptoms concerning nutrition, metabolism, and development [place] grade D esophagitis Gastroparesis [facility] Diagnosis Aftercare following surgery Encounter for other specified aftercare Aftercare following surgery Encounter for other specified aftercare documented in this encounter [facility]* Diagnosis Aftercare following surgery Encounter for other specified aftercare documented in this encounter [facility]* Diagnosis Seborrheic keratosis Lentigines Capillary angioma Nevus, non-neoplastic documented in this encounter [facility]* Diagnosis Restless legs syndrome Restless legs syndrome (RLS) documented in this encounter [facility]* Diagnosis Other migraine without status migrainosus, not intractable [facility] Diagnosis CHUCKIE (obstructive sleep apnea)- Primary Obstructive sleep apnea (adult) (pediatric) Pre-op testing- Primary Unspecified pre-operative examination CHUCKIE (obstructive sleep apnea) Obstructive sleep apnea (adult) (pediatric) [facility] Diagnosis Other migraine without status migrainosus, not intractable- Primary [facility]* Diagnosis CHUCKIE (obstructive sleep apnea)- Primary Obstructive sleep apnea (adult) (pediatric) [facility]* Diagnosis Other migraine without status migrainosus, not intractable [facility]* Diagnosis Onset Date Resolution Status Admit Date Lumbar radiculopathy acute April 30, 2025 3:53pm Polyneuropathy acute April 30, 2025 3:53pm [facility] Work Phone: Evaluation note* Diagnosis Gastroparesis- Primary Esophageal dysphagia Dysphagia, pharyngoesophageal phase Gastroesophageal reflux disease with esophagitis without hemorrhage Diarrhea, unspecified type Flatulence Flatulence, eructation, and gas pain documented [facility]* Diagnosis Mild persistent asthma with acute exacerbation (HCC)- Primary documented in this encounter [facility]* Diagnosis Encounter for gynecological examination without abnormal finding Encounter for Papanicolaou smear of vagina Breast cancer screening by mammogram Hormone replacement therapy Chronic vulvitis Unspecified vaginitis and vulvovaginitis Night sweats Generalized hyperhidrosis Dyspareunia in female Erythema Unspecified erythematous condition documented in this encounter [facility]* Diagnosis Rash and other nonspecific skin eruption- Primary Neoplasm of unspecified behavior of bone, soft tissue, and skin documented in this encounter [facility]* Diagnosis Neuropathy- Primary Mononeuritis of unspecified site B12 deficiency Hyperreflexia Abnormal reflex [facility] see above list Hospitalization History respiratory 02/2020 [facility] - [facility] Other history general Narrative - Reported* Type [...] see above list Hospitalization History respiratory 02/2020 [facility] Other Hospital Discharge instructionsAmbulatory Orders* Referral to Rheumatology Location: None [facility] Work Phone: InstructionsNot on filedocumented in [...] Procedures CAPSULE ENDOSCOPY SMART Isra Masters DO [facility] [address] [place] [id number] [facility] Disease [place] [id number] Referral ID Status Reason Start Date Expiration Date Visits Requested Visits Authorized [id number] Pending Review Auto-Generat ed Referral 10/11/2022 10/11/2023 1 1 [place] for referral (narrative)* Outpatient Procedure (Routine) - Pending Review Specialty Diagnoses / Procedures Referred By Gustavo salazar Referred To Contact [facility] Diagnoses Chronic idiopathic constipation Procedures SIGMOIDOSCOPY SIGMOIDOSCOPY FLX DX W/COLLJ SPEC BR/WA IF PFRMD Isra Masters DO [facility] [address] [place], [place] [id number] [place] [id number] Referral ID Status Reason Start Date Expiration Date Visits Requested Visits Authorized [id number] Pending Review Auto-Generat ed Referral 11/30/2022 11/30/2023 1 1 [place] for referral (narrative)* Outpatient Procedure (Routine) - Pending Review Specialty Diagnoses / Procedures Referred By Gustavo t Referred To Contact [facility] Diagnoses Gastroparesis Procedures EGD - THERAPEUTIC, EUS, OR TUBE INTERVENTIONS ESOPHAGOGASTRODUODENOSC OPY TRANSORAL DIAGNOSTIC STOMACH SURGERY PROCEDURE [place] [address] [facility] Disease [place] [address] [place] [id number] Referral ID Status Reason Start Date Expiration Date Visits Requested Visits Authorized [id number] Pending Review Auto-Generat ed Referral 01/11/2023 01/12/2024 1 1 [facility] for referral (narrative)* Outpatient Procedure (Routine) - Pending Review Specialty Diagnoses / Procedures Referred By Contac t Referred To Contact [facility] Diagnoses Incomplete bladder emptying Urinary urgency Urinary frequency Nocturia Procedures URODYNAMICS WHI COMPLX CYSTOMETRO W/VOID PRESS&URETHRAL PROFILE Nelsy Chávez APRN.LOCKER ROOM SUPERVISOR [address] [place] [phone] [address] [address] Referral ID Status Reason Start Date Expiration Date Visits Requested Visits Authorized [id number] Pending Review Auto-Generat ed Referral 07/31/2023 07/30/2024 1 1 [facility] for referral (narrative)* Consultation (Routine) - Open Specialty Diagnoses / Procedures Referred By Contac t Referred To Contact Family Medicine Diagnoses Upper abdominal pain 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 [address] [place] [address] [facility] [address] [facility] [place] [address] Referral ID Status Reason Start Date Expiration Date Visits Re quested Visits Authorized [id number] Open 08/12/2023 09/12/2024 1 1 [facility] for referral (narrative)* Consultation (Routine) - New Request Specialty Diagnoses / Procedures Referred By Contac t Referred To Contact Psychology Diagnoses Avoidant-restrictive food intake disorder (ARFID) Chronic abdominal pain Padmaja Llamas MD, PhD [address] [place] [address] Referral ID Status Reason Start Date Expiration Date V isits Requested Visits Authorized [id number] New Request 08/09/2024 09/03/2025 1 1 * Adjunctive Therapy (Routine) - New Request Specialty Diagnoses / Procedures Referred By Contac t Referred To Contact Nutrition and Dietetics Diagnoses Chronic abdominal pain Bloating Gastroparesis Padmaja Llamas MD, PhD [address] [place] [address] Referral ID Status Reason Start Date Expiration Date V isits Requested Visits Authorized [id number] New Request 08/09/2024 09/03/2025 1 1 * Radiology (Routine) - New Request Specialty Diagnoses / Procedures Referred By Contac t Referred To Contact Diagnoses Chronic abdominal pain Bloating Procedures HYDROGEN (H2) BREATH TEST Padmaja Llamas MD, PhD [address] [place] [address] Referral ID Status Reason Start Date Expiration Date V isits Requested Visits Authorized [id number] New Request 08/09/2024 09/03/2025 1 1 [facility]ative)No reason for referral information availableAshtab[facility] Work Phone: Reason for visit NarrativeDISCUSS OTHER OPTIONS PRIOR TO [facility] [employer] Other Reason for visit NarrativeRECHECK CERVICAL PAIN DISCUSS PROCEDURENort [employer] Other Reason for visit Narrative* Outpatient Procedure (Routine) - Closed Specialty Diagnoses / Procedures Referred By Contac t Referred To Contact [facility] Diagnoses Gastroparesis Procedures GI TRANSIT & PRES RAVINDER WIRELESS CAPSULE W/INTERP Isra Masters DO [address] [place] [address] [facility] [place] [address] [place] [address] [place] [address] Referral ID Status Reason Start Date Expiration Date Visits Re quested Visits Authorized [id number] Closed 11/08/2022 11/05/2023 1 1 [facility] Summary Purpose Family History No Family [...] FoundDocuments on File Type Date Recorded 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 Expl 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 Advance Directive(s) 10/13/2021 4:09 PM Advance Directive(s) 10/14/2020 8:14 AM Documents on File Type Date Recorded 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 Expl anation Advance Directive(s) 10/13/2021 4:09 PM Advance Directive(s) 10/14/2020 8:14 AM Documents on File Type Date Recorded 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 Expl anation Advance Directive(s) 03/21/2022 1:42 PM [...] unspecified whether esophagitis present Isra Masters DO [address] [place] [address] Referral ID Status Reason Start Date Expiration Date Visits Re quested Visits Authorized [id number] Closed 1 1 Referral ID Status Reason Start Date Expiration Date V isits Requested Visits Authorized [id number] Pending Review 1 1 Specialty Diagnoses / Procedures Referred By Contac t Referred To Contact CT IMAGING Diagnoses Periumbilical abdominal pain Procedures CT ABD/PEL W IVCON CT ABD & PELVIS W/[place] [address] [place] [address] Ct Imaging Referral ID Status Reason Start Date Expiration Date Visits Requested Visits Authorized [id number] Pending Review Auto-Generat ed Referral 08/02/2022 08/25/2023 1 1 Reason BILATERAL SHOULDER P AIN Diagnosis 1 Shoulder pain (M25.5 19) Referral Organization [facility] ub[facility]rate Ortho pedMideoMe Referring Provider First Name Beto Referring Provider Last Name Steven Referring Provider Specialty Pain Medici ne Referred Organization [facility] ubig[facility] Ortho pedMideoMe Referred Provider Beto Cartagena Referred Address [address] [place], [place],[address] Referred Provider Specialty Orthopedic S urgery Referral Priority Routine Referral Appointment Date 2022-10-10 General Notes Kim Manley 10:01:46 AM >patient already scheduled with [facility] 10/10/22 at 1:30pm. Sending p2p at this time Referral ID Status Reason Start Date Expiration Date Visits Re quested Visits Authorized [id number] Closed 1 1 Specialty Diagnoses / Procedures Referred By Contac t Referred To Contact Diagnoses [place] grade D esophagitis Early satiety Unintentional weight loss Gastroparesis Procedures DIAGNOSTIC UPPER ENDOSCOPY OR ESOPHAGOGASTRODUODENOSCOPY TRANSORAL DIAGNOSTIC Padmaja Llamas MD, PhD [address] [place] [address] Referral ID Status Reason Start Date Expiration Date V isits Requested Visits Authorized [id number] New Request 03/06/2024 03/31/2025 1 1 Specialty Diagnoses / Procedures Referred By Contac t Referred To Contact Diagnoses Other migraine without status migrainosus, not intractable Pauline Christensen MD [address] [facility], [address] [place] [address] Referral ID Status Reason Start Date Expiration Date V isits Requested Visits Authorized [id number] Pending Review 05/15/2024 05/15/2025 1 1 Referral ID Status Reason Start Date Expiration Date V isits Requested Visits Authorized [id number] Pending Review 05/15/2024 05/15/2025 1 1 Chief Complaint and Reason for Visit Chief Complaint M25.519 M25.569 R52 Chief Complaint M25.519 M25.569 R52 bilateral shoulder pain Chief Complaint M76.821/right foor p ain Chief Complaint M76.821/right foor p ain chest tightness dizzy sob Chief Complaint r11.0 r10.11 Chief Complaint M76.71 Chief Complaint M76.71 Unknown Chief Complaint Admit Date cervical spondylosis, radiculopathy [facility] 2023 2:53pm Chief Complaint Admit Date cervical spondylosis, radiculopathy [facility] 2023 2:53pm M54.12 October 09, 2024 [...] Chief Complaint Admit Date cervical spondylosis, radiculopathy [facility] 2023 2:53pm M54.12 October 09, 2024 [...] diaphoresis with recent work-up that [facility] emergency room. Reportedly her troponins are elevated [...] of which are currently being investigated at [facility] (now her fourth GI specialist). * Last year while in [place] she had similar issues with elevated troponins [...] I believe this is likely a non- OR troponin elevation, likely associated withunderlying inflammatory bowel disease. We will follow-up on a as needed basis unless further objective data come to light * Patient is a 53-year-old female who returns at the request of her primary care physician with episodic chest discomfort associated weakness, dizziness, diaphoresis with recent work-up that [facility] emergency room. Reportedly her troponins are elevated [...] of which are currently being investigated at [facility] (now her fourth GI specialist). * Last year while in [place] she had similar issues with elevated troponins [...] I believe this is likely a non- OR troponin elevation, likely associated withunderlying inflammatory bowel disease. We will follow-up on a as needed basis unless further objective data come to light Additional Source Comments INFORMATION SOURCE (unrecogn ized section and content) DATE CREATED AUTHOR 07/08/2021 [facility] DATE CREATED AUTHOR AUTHOR'S ORGANIZ ATION 11/18/2021 [facility] DATE CREATED AUTHOR AUTHOR'S ORGANIZ ATION 02/01/2022 [facility] DATE CREATED AUTHOR AUTHOR'S ORGANIZ ATION 04/05/2022 [facility] DATE CREATED AUTHOR AUTHOR'S ORGANIZ ATION 09/29/2022 [facility] dical Specialist DATE CREATED AUTHOR AUTHOR'S ORGANIZ ATION 12/09/2022 [facility] DATE CREATED AUTHOR AUTHOR'S ORGANIZ ATION 04/16/2023 [facility] DATE CREATED AUTHOR AUTHOR'S ORGANIZ ATION 06/14/2023 [facility] DATE CREATED AUTHOR AUTHOR'S ORGANIZ ATION 08/14/2023 [facility] DATE CREATED AUTHOR AUTHOR'S ORGANIZ ATION 09/02/2023 [facility] DATE CREATED AUTHOR AUTHOR'S ORGANIZ ATION 10/27/2023 [facility] DATE CREATED AUTHOR AUTHOR'S ORGANIZ ATION 01/26/2024 [facility] DATE CREATED AUTHOR AUTHOR'S ORGANIZ ATION 03/16/2024 [facility] DATE CREATED AUTHOR AUTHOR'S ORGANIZ ATION 12/28/2024 [facility] DATE CREATED AUTHOR AUTHOR'S ORGANIZ ATION 12/30/2024 [place] DATE CREATED AUTHOR AUTHOR'S ORGANIZ ATION 01/26/2025 [facility] DATE CREATED AUTHOR AUTHOR'S ORGANIZ ATION 06/07/2025 [facility] DATE CREATED AUTHOR AUTHOR'S ORGANIZ ATION 07/14/2025 [facility] DATE CREATED AUTHOR AUTHOR'S ORGANIZ ATION 07/16/2025 [facility] Special[facility] DATE CREATED AUTHOR AUTHOR'S ORGANIZ ATION 07/16/2025 [facility] DATE CREATED AUTHOR AUTHOR'S ORGANIZ ATION 07/20/2025 [facility] Source Comments (unrecognize d section and content) In the event this informatio n is protected by the Federal Confidentiality of Alcohol and Drug Abuse Patient Records regulations: The Federal rules restrict any use of the information to criminally investigate or prosecute any alcohol or drug abuse patient.[facility] the event this information is protected by the Federal Confidentiality of Alcohol and Drug Abuse Patient Records regulations: The Federal rules restrict any use of the information to criminally investigate or prosecute any alcohol or drug abuse patient.[facility] the event this information is protected by the Federal Confidentiality of Alcohol and Drug Abuse Patient Records regulations: The Federal rules restrict any use of the information to criminally investigate or prosecute any alcohol or drug abuse patient.[facility] Hospital[facility] the event this information is protected by the Federal Confidentiality of Alcohol and Drug Abuse Patient Records regulations: The Federal rules restrict any use of the information to criminally investigate or prosecute any alcohol or drug abuse patient.[facility] the event this information is protected by the Federal Confidentiality of Alcohol and Drug Abuse Patient Records regulations: The Federal rules restrict any use of the information to criminally investigate or prosecute any alcohol or drug abuse patient.[facility] the event this information is protected by the Federal Confidentiality of Alcohol and Drug Abuse Patient Records regulations: The Federal rules restrict any use of the information to criminally investigate or prosecute any alcohol or drug abuse patient.[facility] Hospital[facility] the event this information is protected by the Federal Confidentiality of Alcohol and Drug Abuse Patient Records regulations: The Federal rules restrict any use of the information to criminally investigate or prosecute any alcohol or drug abuse patient.[facility] HospitalIn the event this information is protected by the Federal Confidentiality of Alcohol and Drug Abuse Patient Records regulations: The Federal rules restrict any use of the information to criminally investigate or prosecute any alcohol or drug abuse patient.[facility] HospitalIn the event this information is protected by the Federal Confidentiality of Alcohol and Drug Abuse Patient Records regulations: The Federal rules restrict any use of the information to criminally investigate or prosecute any alcohol or drug abuse patient.[facility] the event this information is protected by the Federal Confidentiality of Alcohol and Drug Abuse Patient Records regulations: The Federal rules restrict any use of the information to criminally investigate or prosecute any alcohol or drug abuse patient.[facility] HospitalIn the event this information is protected by the Federal Confidentiality of Alcohol and Drug Abuse Patient Records regulations: The Federal rules restrict any use of the information to criminally investigate or prosecute any alcohol or drug abuse patient.[facility] HospitalIn the event this information is protected by the Federal Confidentiality of Alcohol and Drug Abuse Patient Records regulations: The Federal rules restrict any use of the information to criminally investigate or prosecute any alcohol or drug abuse patient.[facility] HospitalIn the event this information is protected by the Federal Confidentiality of Alcohol and Drug Abuse Patient Records regulations: The Federal rules restrict any use of the information to criminally investigate or prosecute any alcohol or drug abuse patient.[facility] HospitalIn the event this information is protected by the Federal Confidentiality of Alcohol and Drug Abuse Patient Records regulations: The Federal rules restrict any use of the information to criminally investigate or prosecute any alcohol or drug abuse patient.[facility] HospitalIn the event this information is protected by the Federal Confidentiality of Alcohol and Drug Abuse Patient Records regulations: The Federal rules restrict any use of the information to criminally investigate or prosecute any alcohol or drug abuse patient.[facility] HospitalIn the event this information is protected by the Federal Confidentiality of Alcohol and Drug Abuse Patient Records regulations: The Federal rules restrict any use of the information to criminally investigate or prosecute any alcohol or drug abuse patient.[facility] HospitalIn the event this information is protected by the Federal Confidentiality of Alcohol and Drug Abuse Patient Records regulations: The Federal rules restrict any use of the information to criminally investigate or prosecute any alcohol or drug abuse patient.[facility] HospitalIn the event this information is protected by the Federal Confidentiality of Alcohol and Drug Abuse Patient Records regulations: The Federal rules restrict any use of the information to criminally investigate or prosecute any alcohol or drug abuse patient.[facility] HospitalIn the event this information is protected by the Federal Confidentiality of Alcohol and Drug Abuse Patient Records regulations: The Federal rules restrict any use of the information to criminally investigate or prosecute any alcohol or drug abuse patient.[facility] HospitalIn the event this information is protected by the Federal Confidentiality of Alcohol and Drug Abuse Patient Records regulations: The Federal rules restrict any use of the information to criminally investigate or prosecute any alcohol or drug abuse patient.[facility] HospitalIn the event this information is protected by the Federal Confidentiality of Alcohol and Drug Abuse Patient Records regulations: The Federal rules restrict any use of the information to criminally investigate or prosecute any alcohol or drug abuse patient.[facility] HospitalIn the event this information is protected by the Federal Confidentiality of Alcohol and Drug Abuse Patient Records regulations: The Federal rules restrict any use of the information to criminally investigate or prosecute any alcohol or drug abuse patient.[facility] HospitalIn the event this information is protected by the Federal Confidentiality of Alcohol and Drug Abuse Patient Records regulations: The Federal rules restrict any use of the information to criminally investigate or prosecute any alcohol or drug abuse patient.[facility] HospitalIn the event this information is protected by the Federal Confidentiality of Alcohol and Drug Abuse Patient Records regulations: The Federal rules restrict any use of the information to criminally investigate or prosecute any alcohol or drug abuse patient.[facility]In the event this information is protected by the Federal Confidentiality of Alcohol and Drug Abuse Patient Records regulations: The Federal rules restrict any use of the information to criminally investigate or prosecute any alcohol or drug abuse patient.[facility]In the event this information is protected by the Federal Confidentiality of Alcohol and Drug Abuse Patient Records regulations: The Federal rules restrict any use of the information to criminally investigate or prosecute any alcohol or drug abuse patient.[facility] HospitalIn the event this information is protected by the Federal Confidentiality of Alcohol and Drug Abuse Patient Records regulations: The Federal rules restrict any use of the information to criminally investigate or prosecute any alcohol or drug abuse patient.[facility] HospitalIn the event this information is protected by the Federal Confidentiality of Alcohol and Drug Abuse Patient Records regulations: The Federal rules restrict any use of the information to criminally investigate or prosecute any alcohol or drug abuse patient.[facility] HospitalIn the event this information is protected by the Federal Confidentiality of Alcohol and Drug Abuse Patient Records regulations: The Federal rules restrict any use of the information to criminally investigate or prosecute any alcohol or drug abuse patient.[facility] HospitalIn the event this information is protected by the Federal Confidentiality of Alcohol and Drug Abuse Patient Records regulations: The Federal rules restrict any use of the information to criminally investigate or prosecute any alcohol or drug abuse patient.[facility] HospitalIn the event this information is protected by the Federal Confidentiality of Alcohol and Drug Abuse Patient Records regulations: The Federal rules restrict any use of the information to criminally investigate or prosecute any alcohol or drug abuse patient.[facility] HospitalIn the event this information is protected by the Federal Confidentiality of Alcohol and Drug Abuse Patient Records regulations: The Federal rules restrict any use of the information to criminally investigate or prosecute any alcohol or drug abuse patient.[facility] HospitalIn the event this information is protected by the Federal Confidentiality of Alcohol and Drug Abuse Patient Records regulations: The Federal rules restrict any use of the information to criminally investigate or prosecute any alcohol or drug abuse patient.[facility] HospitalIn the event this information is protected by the Federal Confidentiality of Alcohol and Drug Abuse Patient Records regulations: The Federal rules restrict any use of the information to criminally investigate or prosecute any alcohol or drug abuse patient.[facility] HospitalIn the event this information is protected by the Federal Confidentiality of Alcohol and Drug Abuse Patient Records regulations: The Federal rules restrict any use of the information to criminally investigate or prosecute any alcohol or drug abuse patient.[facility] HospitalIn the event this information is protected by the Federal Confidentiality of Alcohol and Drug Abuse Patient Records regulations: The Federal rules restrict any use of the information to criminally investigate or prosecute any alcohol or drug abuse patient.[facility] HospitalIn the event this information is protected by the Federal Confidentiality of Alcohol and Drug Abuse Patient Records regulations: The Federal rules restrict any use of the information to criminally investigate or prosecute any alcohol or drug abuse patient.[facility] HospitalIn the event this information is protected by the Federal Confidentiality of Alcohol and Drug Abuse Patient Records regulations: The Federal rules restrict any use of the information to criminally investigate or prosecute any alcohol or drug abuse patient.[facility] HospitalIn the event this information is protected by the Federal Confidentiality of Alcohol and Drug Abuse Patient Records regulations: The Federal rules restrict any use of the information to criminally investigate or prosecute any alcohol or drug abuse patient.[facility] HospitalIn the event this information is protected by the Federal Confidentiality of Alcohol and Drug Abuse Patient Records regulations: The Federal rules restrict any use of the information to criminally investigate or prosecute any alcohol or drug abuse patient.[facility] HospitalIn the event this information is protected by the Federal Confidentiality of Alcohol and Drug Abuse Patient Records regulations: The Federal rules restrict any use of the information to criminally investigate or prosecute any alcohol or drug abuse patient.[facility] HospitalIn the event this information is protected by the Federal Confidentiality of Alcohol and Drug Abuse Patient Records regulations: The Federal rules restrict any use of the information to criminally investigate or prosecute any alcohol or drug abuse patient.[facility] [place] [facility] HospitalIn the event this information is protected by the Federal Confidentiality of Alcohol and Drug Abuse Patient Records regulations: The Federal rules restrict any use of the information to criminally investigate or prosecute any alcohol or drug abuse patient.[facility] [place] [facility] HospitalIn the event this information is protected by the Federal Confidentiality of Alcohol and Drug Abuse Patient Records regulations: The Federal rules restrict any use of the information to criminally investigate or prosecute any alcohol or drug abuse patient.[facility] HospitalIn the event this information is protected by the Federal Confidentiality of Alcohol and Drug Abuse Patient Records regulations: The Federal rules restrict any use of the information to criminally investigate or prosecute any alcohol or drug abuse patient.[facility] HospitalIn the event this information is protected by the Federal Confidentiality of Alcohol and Drug Abuse Patient Records regulations: The Federal rules restrict any use of the information to criminally investigate or prosecute any alcohol or drug abuse patient.[facility] HospitalIn the event this information is protected by the Federal Confidentiality of Alcohol and Drug Abuse Patient Records regulations: The Federal rules restrict any use of the information to criminally investigate or prosecute any alcohol or drug abuse patient.[facility] HospitalIn the event this information is protected by the Federal Confidentiality of Alcohol and Drug Abuse Patient Records regulations: The Federal rules restrict any use of the information to criminally investigate or prosecute any alcohol or drug abuse patient.[facility] HospitalIn the event this information is protected by the Federal Confidentiality of Alcohol and Drug Abuse Patient Records regulations: The Federal rules restrict any use of the information to criminally investigate or prosecute any alcohol or drug abuse patient.[facility] HospitalIn the event this information is protected by the Federal Confidentiality of Alcohol and Drug Abuse Patient Records regulations: The Federal rules restrict any use of the information to criminally investigate or prosecute any alcohol or drug abuse patient.[facility] HospitalIn the event this information is protected by the Federal Confidentiality of Alcohol and Drug Abuse Patient Records regulations: The Federal rules restrict any use of the information to criminally investigate or prosecute any alcohol or drug abuse patient.[facility] HospitalIn the event this information is protected by the Federal Confidentiality of Alcohol and Drug Abuse Patient Records regulations: The Federal rules restrict any use of the information to criminally investigate or prosecute any alcohol or drug abuse patient.[facility] HospitalIn the event this information is protected by the Federal Confidentiality of Alcohol and Drug Abuse Patient Records regulations: The Federal rules restrict any use of the information to criminally investigate or prosecute any alcohol or drug abuse patient.[facility] HospitalIn the event this information is protected by the Federal Confidentiality of Alcohol and Drug Abuse Patient Records regulations: The Federal rules restrict any use of the information to criminally investigate or prosecute any alcohol or drug abuse patient.[facility] HospitalIn the event this information is protected by the Federal Confidentiality of Alcohol and Drug Abuse Patient Records regulations: The Federal rules restrict any use of the information to criminally investigate or prosecute any alcohol or drug abuse patient.[facility] HospitalIn the event this information is protected by the Federal Confidentiality of Alcohol and Drug Abuse Patient Records regulations: The Federal rules restrict any use of the information to criminally investigate or prosecute any alcohol or drug abuse patient.[facility] HospitalIn the event this information is protected by the Federal Confidentiality of Alcohol and Drug Abuse Patient Records regulations: The Federal rules restrict any use of the information to criminally investigate or prosecute any alcohol or drug abuse patient.[facility] HospitalIn the event this information is protected by the Federal Confidentiality of Alcohol and Drug Abuse Patient Records regulations: The Federal rules restrict any use of the information to criminally investigate or prosecute any alcohol or drug abuse patient.[facility] HospitalIn the event this information is protected by the Federal Confidentiality of Alcohol and Drug Abuse Patient Records regulations: The Federal rules restrict any use of the information to criminally investigate or prosecute any alcohol or drug abuse patient.[facility] HospitalIn the event this information is protected by the Federal Confidentiality of Alcohol and Drug Abuse Patient Records regulations: The Federal rules restrict any use of the information to criminally investigate or prosecute any alcohol or drug abuse patient.[facility] HospitalIn the event this information is protected by the Federal Confidentiality of Alcohol and Drug Abuse Patient Records regulations: The Federal rules restrict any use of the information to criminally investigate or prosecute any alcohol or drug abuse patient.[facility] HospitalIn the event this information is protected by the Federal Confidentiality of Alcohol and Drug Abuse Patient Records regulations: The Federal rules restrict any use of the information to criminally investigate or prosecute any alcohol or drug abuse patient.[facility] HospitalIn the event this information is protected by the Federal Confidentiality of Alcohol and Drug Abuse Patient Records regulations: The Federal rules restrict any use of the information to criminally investigate or prosecute any alcohol or drug abuse patient.[facility] HospitalIn the event this information is protected by the Federal Confidentiality of Alcohol and Drug Abuse Patient Records regulations: The Federal rules restrict any use of the information to criminally investigate or prosecute any alcohol or drug abuse patient.[facility] HospitalIn the event this information is protected by the Federal Confidentiality of Alcohol and Drug Abuse Patient Records regulations: The Federal rules restrict any use of the information to criminally investigate or prosecute any alcohol or drug abuse patient.[facility] HospitalIn the event this information is protected by the Federal Confidentiality of Alcohol and Drug Abuse Patient Records regulations: The Federal rules restrict any use of the information to criminally investigate or prosecute any alcohol or drug abuse patient.[facility] HospitalIn the event this information is protected by the Federal Confidentiality of Alcohol and Drug Abuse Patient Records regulations: The Federal rules restrict any use of the information to criminally investigate or prosecute any alcohol or drug abuse patient.[facility] HospitalIn the event this information is protected by the Federal Confidentiality of Alcohol and Drug Abuse Patient Records regulations: The Federal rules restrict any use of the information to criminally investigate or prosecute any alcohol or drug abuse patient.[facility] HospitalIn the event this information is protected by the Federal Confidentiality of Alcohol and Drug Abuse Patient Records regulations: The Federal rules restrict any use of the information to criminally investigate or prosecute any alcohol or drug abuse patient.[facility] HospitalIn the event this information is protected by the Federal Confidentiality of Alcohol and Drug Abuse Patient Records regulations: The Federal rules restrict any use of the information to criminally investigate or prosecute any alcohol or drug abuse patient.[facility] HospitalIn the event this information is protected by the Federal Confidentiality of Alcohol and Drug Abuse Patient Records regulations: The Federal rules restrict any use of the information to criminally investigate or prosecute any alcohol or drug abuse patient.[facility] HospitalIn the event this information is protected by the Federal Confidentiality of Alcohol and Drug Abuse Patient Records regulations: The Federal rules restrict any use of the information to criminally investigate or prosecute any alcohol or drug abuse patient.[facility] HospitalIn the event this information is protected by the Federal Confidentiality of Alcohol and Drug Abuse Patient Records regulations: The Federal rules restrict any use of the information to criminally investigate or prosecute any alcohol or drug abuse patient.[facility] HospitalIn the event this information is protected by the Federal Confidentiality of Alcohol and Drug Abuse Patient Records regulations: The Federal rules restrict any use of the information to criminally investigate or prosecute any alcohol or drug abuse patient.[facility] HospitalIn the event this information is protected by the Federal Confidentiality of Alcohol and Drug Abuse Patient Records regulations: The Federal rules restrict any use of the information to criminally investigate or prosecute any alcohol or drug abuse patient.[facility] HospitalIn the event this information is protected by the Federal Confidentiality of Alcohol and Drug Abuse Patient Records regulations: The Federal rules restrict any use of the information to criminally investigate or prosecute any alcohol or drug abuse patient.[facility] HospitalIn the event this information is protected by the Federal Confidentiality of Alcohol and Drug Abuse Patient Records regulations: The Federal rules restrict any use of the information to criminally investigate or prosecute any alcohol or drug abuse patient.[facility] HospitalIn the event this information is protected by the Federal Confidentiality of Alcohol and Drug Abuse Patient Records regulations: The Federal rules restrict any use of the information to criminally investigate or prosecute any alcohol or drug abuse patient.[facility] HospitalIn the event this information is protected by the Federal Confidentiality of Alcohol and Drug Abuse Patient Records regulations: The Federal rules restrict any use of the information to criminally investigate or prosecute any alcohol or drug abuse patient.[facility] HospitalIn the event this information is protected by the Federal Confidentiality of Alcohol and Drug Abuse Patient Records regulations: The Federal rules restrict any use of the information to criminally investigate or prosecute any alcohol or drug abuse patient.[facility] HospitalIn the event this information is protected by the Federal Confidentiality of Alcohol and Drug Abuse Patient Records regulations: The Federal rules restrict any use of the information to criminally investigate or prosecute any alcohol or drug abuse patient.[facility] HospitalIn the event this information is protected by the Federal Confidentiality of Alcohol and Drug Abuse Patient Records regulations: The Federal rules restrict any use of the information to criminally investigate or prosecute any alcohol or drug abuse patient.[facility] HospitalIn the event this information is protected by the Federal Confidentiality of Alcohol and Drug Abuse Patient Records regulations: The Federal rules restrict any use of the information to criminally investigate or prosecute any alcohol or drug abuse patient.[facility] HospitalIn the event this information is protected by the Federal Confidentiality of Alcohol and Drug Abuse Patient Records regulations: The Federal rules restrict any use of the information to criminally investigate or prosecute any alcohol or drug abuse patient.[facility] HospitalIn the event this information is protected by the Federal Confidentiality of Alcohol and Drug Abuse Patient Records regulations: The Federal rules restrict any use of the information to criminally investigate or prosecute any alcohol or drug abuse patient.[facility] HospitalIn the event this information is protected by the Federal Confidentiality of Alcohol and Drug Abuse Patient Records regulations: The Federal rules restrict any use of the information to criminally investigate or prosecute any alcohol or drug abuse patient.[facility] HospitalIn the event this information is protected by the Federal Confidentiality of Alcohol and Drug Abuse Patient Records regulations: The Federal rules restrict any use of the information to criminally investigate or prosecute any alcohol or drug abuse patient.[facility] HospitalIn the event this information is protected by the Federal Confidentiality of Alcohol and Drug Abuse Patient Records regulations: The Federal rules restrict any use of the information to criminally investigate or prosecute any alcohol or drug abuse patient.[facility] Reason for Visit (unrecogniz ed section and content) Reason Comments Physical Therapy Specialty Diagnoses / Procedures Referred By Contac t Referred To Contact [facility] Diagnoses Follow-up examination after colorectal surgery Procedures CONSULT TO PHYSICAL THERAPY PHYSICAL THERAPY EVALUATION HIGH COMPLEX [place] [address] [place] [address] [facility] [place] [address] [place] [address] Referral ID Status Reason Start Date Expiration Date Visits Requested Visits Authorized [id number] Authorized Auto-Generat ed Referral 01/04/2022 11/05/2022 30 30 Reason Comments Refill Request dexlansoprazole Reason Comments Established Patient Follow-Up Reason Comments Post Op Reason Comments Established Patient Reason Comments Appointment for script refill Reason Comments Gastroparesis Reason Comments [place]orses[place]er - Other Reason Comments Medication 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 PA [...] ESOPHAGUS DOUBLE CONTRAST STUDY Winston Hannah, [place] [address] Xr Imaging Referral ID Status Reason Start Date Expiration Date V isits Requested Visits Authorized [id number] Closed Auto-Generate d Referral 11/17/2022 12/17/2023 1 [...] ABD & [place] W/[place] [address] [place] [address] Ct Imaging Referral ID Status Reason Start Date Expiration Date V isits Requested Visits Authorized [id number] Closed Auto-Generate d Referral 07/28/2022 11/05/2022 2 [...] By Contac t Referred To Contact Diagnoses [place] grade D esophagitis Early satiety Unintentional weight loss Gastroparesis Procedures DIAGNOSTIC UPPER ENDOSCOPY OR ESOPHAGOGASTRODUODENOSCOPY TRANSORAL DIAGNOSTIC Padmaja Llamas MD, PhD [address] [place] [address] [address] [place] [address] Referral ID Status Reason Start Date Expiration Date V isits Requested Visits Authorized [id number] New Request 03/06/2024 03/31/2025 1 1 Specialty Diagnoses / Procedures Referred By Gustavo salazar Referred To Contact Orthopedics / ORTHOPAEDIC SURGERY Diagnoses shoulder pain right pt will hand carry MRI Procedures POLI ACUTE Self Ryan Lynne MD [address] [facility] [place] [address] Referral ID Status Reason Start Date Expiration Date V isits Requested Visits Authorized [id number] Closed Financial Clearance Not Required 09/06/2020 10/05/2020 [...] Exam C/o bleeding after i ntercourse. LMP: [facility] BS 2014. Reason Comments Follow-up [place] [...] Visit 10/24/24 vaginal cuf f and hymen [id number] daysDenies PO concerns. Bleeding stopped after 7 days. Reason Comments Skin Check Reason Comments Med Refill Reason Onset Date Comments Med Refill 12/10/2024 Reason Onset Date Comments Medication/Pharmacy Switch 05/14/2024 Reason Comments Post-op Inspire Implant Reason Onset Date Comments Results 06/04/2025 Reason Comments <9>Gastroparesis Gas Reason Comments Asthma Reason Comments Gynecologic Exam LMP: [facility] BS 2014HRT : Estrace cream, Estradiol 1MG Last pap 8-7-24 neg.Last mammogram 10-31-23 [facility].Denies breast, urinary, or bowel concerns. Reason Comments MUSCLE WEAKNESS Care Teams (unrecognized sec tion and content) Team Status: Active Member Role Status Dates Shannon Gómez DO Primary Care Provider Active Team Status: Inactive Member Role Status Dates Shannon Gómez DO Primary Care Provider Active Start: November 20, 2024 End: November 20, 2024 Anibalmarco Medrano DO Attending Provider Active S tart: [...] Active Start: October 09, 2024 Anibalmarco Medrano DO Other Provider Active Start : [...] October 10, 2024 End: October 10, 2024 Anibalmarco Medrano , DO Attending Provider [...] tomasa Primary Care Provider Active Start: November 14, 2024 End: November 14, 2024 Padmaja Llamas MD Attending Provider Active Start: Louis banuelos 2024 End: November 14, 2024 Team Status: Inactive Member Role Status Dates Shannon SzymanskiDO leigha Primary Care Provider Active Niecy Duron PA-C Attending Provider Active Engine Repairer Service Relationship Specialty Start Date End Date Eliceo Gómez Jr. [address] [place] [id number] PCP - General Family Practice 10/14/20 Engine Repairer Service Relationship Specialty Start Date End Date Eliceo Gómez Jr. [address] [place] [id number] 637 PCP - General Family Practice 10/14/20 Engine Repairer Service Relationship Specialty Start Date End Date Eliceo Gómez Jr. [address] [place] [address] PCP - General Family Practice 10/14/20 Engine Repairer Service Relationship Specialty Start Date End Date Eliceo Gómez Jr. [address] [place] [address] PCP - General Family Practice 10/14/20 Engine Repairer Service Relationship Specialty Start Date End Date Eliceo Gómez Jr. [address] [place] [address] PCP - General Family Practice 10/14/20 Engine Repairer Service Relationship Specialty Start Date End Date Eliceo Gómez Jr. [address] [place] [address] PCP - General Family Practice 10/14/20 Gwendolyn Stroud [address] [place] [address] Family Practice 03/14/22 Engine Repairer Service Relationship Specialty Start Date End Date Eliceo Gómez Jr. [address] [place] [address] PCP - General Family Practice 10/14/20 Gwendolyn Stroud [address] [place] [address] Family Practice 03/14/22 Engine Repairer Service Relationship Specialty Start Date End Date Eliceo Gómez Jr. [address] [place] [address] PCP - General Family Practice 10/14/20 Gwendolyn Stroud [address] [place] [address] Family Practice 03/14/22 Engine Repairer Service Relationship Specialty Start Date End Date Eliceo Gómez Jr. [address] [place] [address] PCP - General Family Practice 10/14/20 Gwendolyn Stroud [address] [place] [address] Family Practice 03/14/22 Engine Repairer Service Relationship Specialty Start Date End Date Eliceo Gómez Jr. [address] [place] [address] PCP - General Family Practice 10/14/20 Gwendolyn Stroud [address] [place] [address] Family Practice 03/14/22 Engine Repairer Service Relationship Specialty Start Date End Date Eliceo Gómez Jr. [address] [place] [address] PCP - General Family Practice 10/14/20 Gwendolyn Stroud [address] [place] [address] Family Practice 03/14/22 Engine Repairer Service Relationship Specialty Start Date End Date Eliceo Gómez Jr. [address] [place] [address] PCP - General Family Practice 10/14/20 Gwendolyn Stroud, [employer] ROOM SUPERVISOR Family Practice 03/14/22 Engine Repairer Service Relationship Specialty Start Date End Date Eliceo Gómez JrReno [address] [place] [address] PCP - General Family Practice 10/14/20 Gwendolyn Stroud, LOCKER ROOM SUPERVISOR Family Practice 03/14/22 Engine Repairer Service Relationship Specialty Start Date End Date Eliceo Gómez JrReno [address] [place] [address] PCP - General Family Practice 10/14/20 Gwendolyn Stroud, LOCKER ROOM SUPERVISOR Family Practice 03/14/22 Engine Repairer Service Relationship Specialty Start Date End Date Dalia Eliceo Lugo JrReno [address] [place] [address] PCP - General Family Practice 10/14/20 Gwendolyn Stroud, LOCKER ROOM SUPERVISOR Family Practice 03/14/22 Engine Repairer Service Relationship Specialty Start Date End Date Hernandeztomasa Eliceo Lugo JrReno [address] [place] [address] PCP - General Family Medicine 10/14/20 Gwendolyn Stroud, LOCKER ROOM SUPERVISOR Family Medicine 03/14/22 Engine Repairer Service Relationship Specialty Start Date End Date Eliceo Gómez Jr. [address] [place] [address] PCP - General Family Medicine 10/14/20 Gwendolyn Stroud LOCKER ROOM SUPERVISOR Family Medicine 03/14/22 Engine Repairer Service Relationship Specialty Start Date End Date Eliceo Gómez Jr. [address] [place] [address] PCP - General Family Medicine 10/14/20 Gwendolyn Stroud, LOCKER ROOM SUPERVISOR Family Medicine 03/14/22 Engine Repairer Service Relationship Specialty Start Date End Date Eliceo Gómez Jr. [address] [place] [address] PCP - General Family Medicine 10/14/20 Gwendolyn Stroud, LOCKER ROOM SUPERVISOR Family Medicine 03/14/22 Team Status: Inactive Member Role Status Dates Shannon Gómez DO Primary Care Provider Active Beto Snyder MD Attending Provider Active Engine Repairer Service Relationship Specialty Start Date End Date Eliceo Gómez Jr. [address] [place] [address] PCP - General Family Medicine 10/14/20 Gwendolyn Stroud, LOCKER ROOM SUPERVISOR [address] [place] [address] Family Medicine 03/14/22 Engine Repairer Service Relationship Specialty Start Date End Date Eliceo Gómez Jr. [address] [place] [address] PCP - General Family Medicine 10/14/20 Gwednolyn Stroud CNP [address] [place] [address] Family Medicine 03/14/22 Engine Repairer Service Relationship Specialty Start Date End Date Eliceo Gómez Jr. [address] [place] [address] PCP - General Family Medicine 10/14/20 Gwendolyn Stroud CNP [address] [place] [address] Family Medicine 03/14/22 Engine Repairer Service Relationship Specialty Start Date End Date Eliceo Gómez Jr. [address] [place] [address] PCP - General Family Medicine 10/14/20 Gwendolyn Stroud CNP [address] [place] [address] Family Medicine 03/14/22 Engine Repairer Service Relationship Specialty Start Date End Date Eliceo Gómez Jr. [address] [place] [address] PCP - General Family Medicine 10/14/20 Gwendolyn Stroud CNP [address] [place] [address] Family Medicine 03/14/22 Engine Repairer Service Relationship Specialty Start Date End Date Eliceo Gómez Jr. [address] [place] [address] PCP - General Family Medicine 10/14/20 Gwendolyn Stroud CNP [address] [place] [address] Family Medicine 03/14/22 Engine Repairer Service Relationship Specialty Start Date End Date Eliceo Gómez Jr. [address] [place] [address] PCP - General Family Medicine 10/14/20 Gwendolyn Stroud CNP [address] [place] [address] Family Medicine 03/14/22 Engine Repairer Service Relationship Specialty Start Date End Date Eliceo Gómez Jr. [address] [place] [address] PCP - General Family Medicine 10/14/20 Gwendolyn Stroud CNP [address] [place] [address] Family Medicine 03/14/22 Engine Repairer Service Relationship Specialty Start Date End Date Eliceo Gómez Jr. [address] [place] [address] PCP - General Family Medicine 10/14/20 Gwendolyn Stroud CNP [address] [place] [address] Family Medicine 03/14/22 Engine Repairer Service Relationship Specialty Start Date End Date Eliceo Gómez Jr. [address] [place] [address] PCP - General Family Medicine 10/14/20 Gwendolyn Stroud CNP [address] [place] [address] Family Medicine 03/14/22 Engine Repairer Service Relationship Specialty Start Date End Date Eliceo Gómez Jr. [address] [place] [address] PCP - General Family Medicine 10/14/20 Gwendolyn Stroud, LOCKER ROOM SUPERVISOR [address] [place] [address] Family Medicine 03/14/22 Team Status: Inactive Member Role Status Dates Shannon Gómez DO Primary Care Provider Active Beto Cartagena MD Attending Provider Active Engine Repairer Service Relationship Specialty Start Date End Date Eliceo Gómez Jr. [address] [place] [address] PCP - General Family Medicine 10/14/20 Gwendolyn Stroud, LOCKER ROOM SUPERVISOR [address] [place] [address] Family Medicine 03/14/22 Engine Repairer Service Relationship Specialty Start Date End Date Eliceo Gómez Jr. [address] [place] [address] PCP - General Family Medicine 10/14/20 Gwendolyn Stroud, LOCKER ROOM SUPERVISOR [address] [place] [address] Family Medicine 03/14/22 Engine Repairer Service Relationship Specialty Start Date End Date Eliceo Gómez Jr. [address] [place] [address] PCP - General Family Medicine 10/14/20 Gwendolyn Stroud, KWESI [address] [place] [address] Family Medicine 03/14/22 Engine Repairer Service Relationship Specialty Start Date End Date Eliceo Gómez Jr. [address] [place] [address] PCP - General Family Medicine 10/14/20 Gwendolyn Stroud CNP [address] [place] [address] Family Medicine 03/14/22 Engine Repairer Service Relationship Specialty Start Date End Date Eliceo Gómez Jr. [address] [place] [address] PCP - General Family Medicine 10/14/20 Gwendolyn Stroud, KWESI [address] [place] [address] Family Medicine 03/14/22 Engine Repairer Service Relationship Specialty Start Date End Date Eliceo Gómez Jr. [address] [place] [address] PCP - General Family Medicine 10/14/20 Gwendolyn Stroud CNP [address] [place] [address] Family Medicine 03/14/22 Engine Repairer Service Relationship Specialty Start Date End Date Eliceo Gómez Jr. [address] [place] [address] PCP - General Family Medicine 10/14/20 Gwendolyn Stroud, KWESI [address] [place] [address] Family Medicine 03/14/22 Engine Repairer Service Relationship Specialty Start Date End Date Eliceo Gómez Jr. [address] [place] [address] PCP - General Family Medicine 10/14/20 Gwendolyn Stroud CNP [address] [place] [address] Family Medicine 03/14/22 Team Status: Inactive Member Role Status Henrietta Gómez , DO Primary Care Provider Active Anibal Valle , DO Emergency Provider Active Engine Repairer Service Relationship Specialty Start Date End Date Eliceo Gómez Jr. [address] [place] [address] PCP - General Family Medicine 10/14/20 Gwendolyn Stroud CNP [address] [place] [address] Family Medicine 03/14/22 Engine Repairer Service Relationship Specialty Start Date End Date Eliceo Gómez Jr. [address] [place] [address] PCP - General Family Medicine 10/14/20 Gwendolyn Stroud CNP [address] [place] [address] Family Medicine 03/14/22 Engine Repairer Service Relationship Specialty Start Date End Date Eliceo Gómez Jr. [address] [place] [address] PCP - General Family Medicine 10/14/20 Gwendolyn Stroud CNP [address] [place] [address] Family Medicine 03/14/22 Engine Repairer Service Relationship Specialty Start Date End Date Eliceo Gómez Jr., DO [address] [place] [address] PCP - General Family Medicine 10/14/20 Gwendolyn Stroud, KWESI [address] [place] [address] Family Medicine 03/14/22 Engine Repairer Service Relationship Specialty Start Date End Date Eliceo Gómez Jr., DO [address] [place] [address] PCP - General Family Medicine 10/14/20 Gwendolyn Stroud, LOCKER ROOM SUPERVISOR [address] [place] [address] Family Medicine 03/14/22 Team Status: Inactive Member Role Status Henrietta Gómez DO Primary Care Provider Active Start: November 23, 2023 End: November 23, 2023 Tez Vazquez DO Attending Provider Active Start : November 23, 2023 End: November 23, 2023 Engine Repairer Service Relationship Specialty Start Date End Date Eliceo Gómez Jr., DO [address] [place] [address] PCP - General Family Medicine 10/14/20 Gwendolyn Stroud, LOCKER ROOM SUPERVISOR [address] [place] [address] Family Medicine 03/14/22 Engine Repairer Service Relationship Specialty Start Date End Date Eliceo Gómez Jr., DO [address] [place] [address] PCP - General Family Medicine 10/14/20 Gwendolyn Stroud, LOCKER ROOM SUPERVISOR [address] [place] [address] Family [facility] 03/14/22 Engine Repairer Service Relationship Specialty Start Date End Date Eliceo Gómez Jr., DO [address] [place] [address] PCP - General Family Medicine 10/14/20 Gwendolyn Stroud, LOCKER ROOM SUPERVISOR [address] [place] [address] Family [facility] 03/14/22 Engine Repairer Service Relationship Specialty Start Date End Date Eliceo Gómez Jr., DO [address] [place] [address] PCP - General Family Medicine 10/14/20 Gwendolyn Stroud, LOCKER ROOM SUPERVISOR [address] [place] [address] Family [facility] 03/14/22 Engine Repairer Service Relationship Specialty Start Date End Date Eliceo Gómez Jr., DO [address] [place] [address] PCP - General Family Medicine 10/14/20 Gwendolyn Stroud, LOCKER ROOM SUPERVISOR [address] [place] [address] Family [facility] 03/14/22 Engine Repairer Service Relationship Specialty Start Date End Date Eliceo Gómez Jr., DO [address] [place] [address] PCP - General Family Medicine 10/14/20 Gwendolyn Stroud, LOCKER ROOM SUPERVISOR [address] [place] [address] Family Medicine 03/14/22 Engine Repairer Service Relationship Specialty Start Date End Date Eliceo Gómez Jr., [address] [place] [address] PCP - General Family Medicine 10/14/20 Gwendolyn Stroud, KWESI [address] [place] [address] Family Medicine 03/14/22 Engine Repairer Service Relationship Specialty Start Date End Date Shannon Gómez DO [address] [place] [address] PCP - General Family Medicine 11/14/23 Team [...] May 27, 2024 End: May 27, 2024 Engine Repairer Service Relationship Specialty Start Date End Date Eliceo Gómez Jr., [address] [place] [address] PCP - General Family Medicine 10/14/20 Gwendolyn Stroud, KWESI [address] [place] [address] Family Medicine 5/9/22 Engine Repairer Service Relationship Specialty Start Date End Date Eliceo Gómez Jr., DO [address] [place] [address] PCP - General Family Medicine 10/14/20 Engine Repairer Service Relationship Specialty Start Date End Date Shannon Gómez, DO [address] [place] [address] PCP - General [facility] Medicine 11/14/23 Engine Repairer Service Relationship Specialty Start Date End Date Eliceo Gómez, DO [address] [place] [address] PCP - General [facility] 04/04/23 Eliceo Gómez, DO [address] [place] [address] PCP - [facility] 05/06/23 Dipti Acevedo, DO [address] [place] [address] Referring Physician Obstetrics and Gynecology 05/20/24 Engine Repairer Service Relationship Specialty Start Date End Date Eliceo Gómez, DO [address] [place] [address] PCP - General [facility] Medicine 04/04/23 Eliceo Gómez, DO [address] [place] [address] PCP - [facility] 05/06/23 Dipti Acevedo, DO [address] [place] [address] Referring Physician Obstetrics and Gynecology 05/20/24 Team Status: Inactive Member Role Status Dates Shannon Gómez DO Primary Care Provider Active Start: September 16, 2024 End: September 16, 2024 Anibal Medrano DO Attending Provider Active S tart: September 16, 2024 End: September 16, 2024 Engine Repairer Service Relationship Specialty Start Date End Date Eliceo Gómez DO [address] [place] [address] PCP - General Family Medicine 04/04/23 Eliceo Gómez DO [address] [place] [address] PCP - [facility] 05/06/23 Dipti Acevedo, [address] [place] [address] Referring Physician Obstetrics and Gynecology 05/20/24 Engine Repairer Service Relationship Specialty Start Date End Date Eliceo Gómez DO [address] [place] [address] PCP - General Family Medicine 04/04/23 Eliceo Gómez DO [address] [place] [address] PCP - [facility] 05/06/23 Dipti Acevedo, DO [address] [place] [address] Referring Physician Obstetrics and Gynecology 05/20/24 Engine Repairer Service Relationship Specialty Start Date End Date Eliceo Gómez DO [address] [place] [address] PCP - General Family Medicine 04/04/23 Eliceo Gómez DO [address] [place] [address] PCP - [facility] 05/06/23 Dipti Acevedo, [address] [place] [address] Referring Physician Obstetrics and Gynecology 05/20/24 Engine Repairer Service Relationship Specialty Start Date End Date Eliceo Gómez DO [address] [place] [address] PCP - General Family Medicine 04/04/23 Eliceo Gómez DO [address] [place] [address] PCP - [facility] 05/06/23 Dipti Acevedo, DO [address] [place] [address] Referring Physician Obstetrics and Gynecology 05/20/24 Engine Repairer Service Relationship Specialty Start Date End Date Eliceo Gómez DO [address] [place] [address] PCP - General Family Medicine 04/04/23 Eliceo Gómez DO [address] [place] [address] PCP - [facility] 05/06/23 Dipti Acevedo, [address] [place] [address] Referring Physician Obstetrics and Gynecology 05/20/24 Engine Repairer Service Relationship Specialty Start Date End Date Eliceo Gómez DO [address] [place] [address] PCP - General Family Medicine 04/04/23 Eliceo Gómez, [address] [place] [address] PCP - [facility] 05/06/23 Dipti Acevedo, DO [address] [place] [address] Referring Physician Obstetrics and Gynecology 05/20/24 Engine Repairer Service Relationship Specialty Start Date End Date Eliceo Gómez DO [address] [place] [address] PCP - General Family Medicine 04/04/23 Eliceo Gómez DO [address] [place] [address] PCP - [facility] 05/06/23 Dipti Acevedo, DO [address] [place] [address] Referring Physician Obstetrics and Gynecology 05/20/24 Engine Repairer Service Relationship Specialty Start Date End Date Shannon Gómez DO [address] [place] [address] PCP - General Family Medicine 11/14/23 Engine Repairer Service Relationship Specialty Start Date End Date Eliceo Gómez DO [address] [place] [address] PCP - General Family Medicine 04/04/23 Eliceo Gómez, [address] [place] [address] PCP - [facility] 05/06/23 Dipti Acevedo, DO [address] [place] [address] Referring Physician Obstetrics and Gynecology 05/20/24 Engine Repairer Service Relationship Specialty Start Date End Date Eliceo Gómez, DO [address] [place] [address] PCP - General Family Medicine 04/04/23 Eliceo Gómez, DO [address] [place] [address] [facility] - [facility] 05/06/23 Dipti Acevedo, DO [address] [place] [address] Referring Physician Obstetrics and Gynecology 05/20/24 Engine Repairer Service Relationship Specialty Start Date End Date Eliceo Gómez, DO [address] [place] [address] PCP - General Family Medicine 04/04/23 Eliceo Gómez, DO [address] [place] [address] PCP - [facility] 05/06/23 Dipti Acevedo, DO [address] [place] [address] Referring Physician Obstetrics and Gynecology 05/20/24 Engine Repairer Service Relationship Specialty Start Date End Date Eliceo Gómez Jr., DO [address], [address] [place] [address] PCP - General Family Medicine 12/11/19 [facility] [address] [facility] [address] [place] [phone] (Work) Consulting Physician Behavioral Health 12/20/23 Engine Repairer Service Relationship Specialty Start Date End Date Eliceo Gómez Jr., DO [address], [address] [place] [address] PCP - General Family Medicine 12/11/19 Engine Repairer Service Relationship Specialty Start Date End Date Eliceo Gómez Jr., DO [address], [address] [place] [address] PCP - General Family Medicine 12/11/19 Engine Repairer Service Relationship Specialty Start Date End Date Eliceo Gómez Jr., DO [address], [address] [place] [address] PCP - General Family Medicine 12/11/19 [facility] [address] [facility] [address] [place] [phone] (Work) Consulting Physician Behavioral Health 12/20/23 Engine Repairer Service Relationship Specialty Start Date End Date Eliceo Gómez Jr., DO [address] [place] [address] PCP - General Family Medicine 12/11/19 [facility] [address] [facility] [address] [place] [phone] (Work) Consulting Physician Behavioral Health 12/20/23 Engine Repairer Service Relationship Specialty Start Date End Date Eliceo Gómez Jr., DO [address] [place] [address] PCP - General Family Medicine 12/11/19 [facility] [address] [facility] [address] [place] [phone] (Work) Consulting Physician Behavioral Health 12/20/23 Engine Repairer Service Relationship Specialty Start Date End Date Eliceo Gómez Jr., DO [address], [address] [place] [address] PCP - General Family Medicine 12/11/19 Jenna Butler [address] [facility] [address] [place] Consulting Physician Behavioral Health 12/20/23 Engine Repairer Service Relationship Specialty Start Date End Date Eliceo Gómez, [address] [place] [address] PCP - General Family Medicine 04/04/23 Eliceo Gómez, DO [address] [place] [address] PCP - [facility] 05/06/2310/05 Dipti Acevedo, DO [address] [place] [address] Referring Physician Obstetrics and Gynecology 05/20/24 Engine Repairer Service Relationship Specialty Start Date End Date Eliceo Gómez, DO [address] [place] [address] PCP - General Family Medicine 04/04/23 Eliceo Gómez, DO [address] [place] [address] PCP - [facility] 05/06/2310/05 Dipti Acevedo, DO [address] [place] [address] Referring Physician Obstetrics and Gynecology 05/20/24 Engine Repairer Service Relationship Specialty Start Date End Date Eliceo Gómez Jr., DO [address] [place] [address] PCP - General Family Medicine 12/11/19 Jenna Carrie [address] [facility] [address] [place] Consulting Physician Behavioral Health 12/20/23 Team Status: Inactive Member Role Status Dates Shannon Gómez DO Primary Care Provider Active Start: February 25, 2025 End: February 25, 2025 Monica Burns NP-C Attending Provider Active St art: February 25, 2025 End: February 25, 2025 Engine Repairer Service Relationship Specialty Start Date End Date Eliceo Gómez DO [address] [place] [address] PCP - General Family Medicine 04/04/23 Eliceo Gómez DO [address] [place] [address] PCP - [facility] 05/06/2310/05 Dipti Acevedo, [address] [place] [address] Referring Physician Obstetrics and Gynecology 05/20/24 Engine Repairer Service Relationship Specialty Start Date End Date Eliceo Gómez Jr., DO [address] [facility] [place] [address] PCP - General Family Medicine 12/11/19 Jenna Carrie [address] [facility] [address] [place] Consulting Physician Behavioral Health 12/20/23 Team Status: Inactive Member Role Status Dates Shannon Gómez DO Primary Care Provider Active Start: April 30, 2025 End: April 30, 2025 Salma Galeas DO Attending Provider Active Start: April 30, 2025 End: April 30, 2025 Engine Repairer Service Relationship Specialty Start Date End Date Eliceo Gómez Jr., DO [address] [place] [address] PCP - General Family Medicine 12/11/19 [place] [address] [facility] [address] [place] Consulting Physician Behavioral Health 12/20/23 Engine Repairer Service Relationship Specialty Start Date End Date Eliceo Gómez Jr., DO [address] [place] [address] PCP - General Family Medicine 12/11/19 Jenna Butler [address] [facility] [address] [place] Consulting Physician Behavioral Health 12/20/23 Engine Repairer Service Relationship Specialty Start Date End Date Eliceo Gómez, [address] [place] [address] PCP - General Family Medicine 04/04/23 Dipti Acevedo, DO [address] [place] [address] Referring Physician Obstetrics and Gynecology 05/20/24 Engine Repairer Service Relationship Specialty Start Date End Date Eliceo Gómez, [address] [place] [address] PCP - General Family Medicine 04/04/23 Dipti Acevedo, DO [address] [place] [address] Referring Physician Obstetrics and Gynecology 05/20/24 Engine Repairer Service Relationship Specialty Start Date End Date Eliceo Gómez, [address] [place] [address] PCP - General Family Medicine 04/04/23 Dipti Acevedo, DO [address] [place] [address] Referring Physician Obstetrics and Gynecology 05/20/24 Team Status: Inactive Member Role Status Henrietta Gómez DO Primary Care Provider Active Start: July 01, 2025 End: July 01, 2025 Monica Burns , SUPERVISOR BACKFILLING-C Attending Provider Active St art: July 01, 2025 End: July 01, 2025 Engine Repairer Service Relationship Specialty Start Date End Date Eliceo Gómez, [address] [place] [address] PCP - General Family Medicine 04/04/23 Dipti Acevedo, DO [address] [place] [address] Referring Physician Obstetrics and Gynecology 05/20/24 Engine Repairer Service Relationship Specialty Start Date End Date Eliceo Gómez DO [address] [place] [address] PCP - General Family Medicine 04/04/23 Dipti Acevedo, DO [address] [place] [address] Referring Physician Obstetrics and Gynecology 05/20/24 Engine Repairer Service Relationship Specialty Start Date End Date Eliceo Gómez Jr., [address] [place] [address] PCP - General Family Medicine 12/11/19 Jenna Chapay [address] [place] [address] Consulting Physician Behavioral Health 12/20/23 Engine Repairer Service Relationship Specialty Start Date End Date Eliceo Gómez Jr., [address] [place] [address] PCP - General Family Medicine 12/11/19 Jenna Butler [address] Consulting Physician Behavioral Health 12/20/23 Goals [...] BE BASED ON THE PRIMARY CLINICAL RECORDS. [employer] [facility]. provides no warranty or guarantee of the accuracy or completeness of information in this document.
[2025-07-21 07:21] VITALS: BP 130/90; PULSE 68; TEMP 36.7; O2SAT 99
[2025-07-21 07:57] VITALS: BP 149/84; BP 153/90; PULSE 67; PULSE 74; O2SAT 100
[2025-07-21] MEDS: BUPIVACAINE HCL 0.25% PF 25 MG/10 ML VIAL 2 ML INJ (07:59)
[2025-07-21] MEDS: IOHEXOL 240 MG/ML - 10 ML VIAL 12 MG INJ (07:59)
[2025-07-21] MEDS: LIDOCAINE HCL 2% 400 MG/20 ML MDV INJ (08:00)
[2025-07-21] MEDS: METHYLPREDNISOLONE ACETATE 40 MG/ML VIAL INJ (08:00)
--- NOTE | 2025-07-21 08:00 | W.PM.PROCNOT ---
Date of procedure: 07/21/25 Pre-op diagnosis: Pain due to left sacroiliitis Post-op diagnosis: same as pre-op Procedure: Procedure: Left sacroiliac joint injection Medications: Bupivacaine 0.25% 3cc, depomedrol 40mg After informed consent was obtained, the patient was brought to the medical procedure unit and placed in the prone position, when a timeout was completed verifying correct patient, procedure, site, positioning, implant, and/or special equipment.? The skin overlying the area was prepped and draped in standard sterile fashion using alcohol.? A 25-gauge needle was inserted towards the left sacroiliac joint under direct fluoroscopic imaging.? Needle tip was advanced until the joint was encountered.? We instilled a total of 2 mL of solution.? Postoperatively needles were removed.? The patient tolerated the procedure well without complication.? The patient reported reduction in pain symptoms postoperatively. Anesthesia: Local Surgeon: Ace Ahumada Pathology: none sent Condition: stable Disposition: no change
--- NOTE | 2025-07-21 08:02 | PC.NURSE ---
0/10 PAIN UPON DISCHARGE
== END 2025-07-21 08:02 | disposition home or self-care (01) ==
LOC: SURGOUT 07:02
PROVIDERS: PCP Family Medicine; Visit Provider Anesthesiology
DX: M46.1 Sacroiliitis, not elsewhere classified (principal)
CPT/HCPCS: 27096; J0665; J1010; Q9966

== ENCOUNTER 2025-07-30 07:39 | Outpatient (OUT) | payer OTHER, MEDICARE, SELFPAY ==
--- OUTSIDE RECORDS SUMMARY | 2024-08-28 05:00 | XMS_ITS ---
Author Organization [facility] in [place] Address [address] [place] [address] Care Team Providers Care Teletype Technician Name Role Phone Rigo Grant DO Primary Care Provider Jacob Ahuja Unavailable [phone] REASON FOR VISIT 6 month f/u Encounters Encounter Location Date Provider Diagnosis [facility] (PODIATRY) [address] [place] [address] [place] [address] 08/28/2024 Jacbo Felix Plan Of Treatment No Information Progress Notes * Mary FUENTES DDOB:[birth year] (55 yo F)Acc No.[id number]:08/28/2024 UNLOCKED PROGRESS NOTE Follow Up Patient: Siria CUEVA Mary Kenny Provider: Leo Felix DPM MS :1970 A ge:54 Y S ex:Female Date:08/28/2024 [facility] Pcp:Rigo Grant DO Subjective: * Chief Complaints: * 1 . 6 month f/u. * Medical History: Objective: * Vitals: Assessment: Plan: * Treatment: * * Electronic signature of Ky Felix DPM on 07/30/2025 at 07:43 AM EDT Sign off status: Pending Visit Status: C ANC (Cancelled) * Provider: Leo Felix DPM, MS Date: Generated for Printi ng/Faxing/eTransmitting on: 0 07/30/2025 07:43 AM EDT
--- OUTSIDE RECORDS SUMMARY | 2024-09-10 06:00 | XMS_ITS ---
Author Organization The [facility] in [place] Address [address] [place] [address] Care Team Providers Care Emergency Specialist Name Role Phone Rigo Grant DO Primary Care Provider Jacob Ahuja Unavailable [phone] REASON FOR VISIT 6 week f/u Encounters Encounter Location Date Provider Diagnosis [facility] (POD[facility]) [address] [place] [address] [place] [address] 09/10/2024 Jacob Felix Plan Of Treatment No Information Progress Notes * Mary FUENTES DDOB:[birth year] (55 yo F)Acc No.[id number]:09/10/2024 UNLOCKED PROGRESS NOTE Follow Up Patient: Siria CUEVA Mary Kenny Provider: Leo Felix DPM, MS :1970 A ge:54 Y S ex:Female Date:09/10/2024 [id number] Pcp:Rigo Grant DO Subjective: * Chief Complaints: * 1 . 6 week f/u. * Medical History: Objective: * Vitals: Assessment: Plan: * Treatment: * * Electronic signature of Ky Felix DPM on 07/30/2025 at 07:42 AM EDT Sign off status: Pending Visit Status: O FF CANC (OFFICE CANCEL) * Provider: Leo Felix DPM, MS Date: 11/10/2023 Generated for Printi ng/Faxing/eTransmitting on: 0 07/30/2025 07:42 AM EDT
--- OUTSIDE RECORDS SUMMARY | 2024-12-12 10:47 | XMS_ITS | Continuity of Care Document ---
Author Organization [facility] Address [address] [place] [address] Phone Care Team Providers Care Youth Associate Name Role Phone Litzy HILL, Anibal Unavailable [...] Prophylaxis Adult Nutrit Couns For Control Of [place] Dis Nov Oral Hygiene Instruction Oral Hygiene Instruction Kmoibcurn-cxycrolqbm-rvtd Additional Oct Bitewig-single Film Limited Oral Eval Bitewings Four Films Intraoral-periapical 1st Film Prophylaxis Adult Moderate Risk Nutrit Couns For Control Of [place] Dis Jan Oral Hygiene Instruction Nutrit Couns For Control Of [place] Dis Sep No Charge Limited Oral Eval Extract; Erupted Th/exposted Rt - 021 [id number]-tvtpofxcni-rbdp Additional Aug Nutrit Couns For Control Of [place] Dis Aug Pfizer COVID Vaccine Admin Dose [...] Diagnoses Date Provider Providers Copied on Encounter [facility], [address] [place] [address], [id number], [place] tel:[phone] Dental Clinic risa (chief complaint) Encounter for screening for dental disorders Litzy HILL Anibal. [address] [place] [address], [id number] , [place]. tel:[phone] [facility], [address] [place] [address], [id number], [place] tel:[phone] Dental Clinic risa (chief complaint) Body mass index [BMI] 25.0-25.9, adultEncounter for screening for dental disorders Litzy HILL Anibal. [address] [place] [address], [id number] , [place]. tel:[phone] [facility], [address] [place] [address], [id number], [place] tel:[phone] Dental Clinic dental new (chief complaint) Encounter for screening for dental disorders Litzy HILL Anibal. [address] [place] [address], [id number] , [place]. tel:[phone] [facility], [address] [place] [address], [id number], [place] tel:[phone] Dental Clinic DL (chief complaint) Encounter for screening for dental disorders Dolores HILL Prosper. [address] [place] [address], [address], [place]. tel:[phone] [facility], [address] [place] [address], [id number], [place] tel:[phone] Dental Clinic PRO (chief complaint) Encounter for screening for dental disorders Catrachita Rutledge. . tel:+ [phone] [facility], [address] [place], [place], [id number], [place] tel:[phone] Dental Clinic filling (chief complaint) Encounter for screening for dental disorders Abdiel Mac. [address] [place], [address], [place]. tel:+ [phone] [facility], [address] [place], [place], [id number], [place] tel:[phone] Dental Clinic filling (chief complaint) Encounter for screening for dental disorders Abdiel Mac. [address] [place], [address], [place]. tel:+ [phone] [facility], [address] [place] [address], [id number], [place] tel:[phone] COVID ECHD No Information Regina Camacho. [address] [place], [place], [id number] , [place]. tel: [phone] [facility], [address] [place] [address], [id number], [place] tel:[phone] Dental Clinic Ext. (chief complaint) Encounter for screening for dental disorders Abdiel Mac. [address] [place], [address], [place]. tel:+ [phone] [facility], [address] [place], [place], [id number], [place] tel:[phone] COVID ECHD Encounter for screening for dental disorders Regina Camacho. [address] [place], [place], [id number] , [place]. tel:+ [phone] [facility], [address] [place], [place], [id number], [place] tel:[phone] Dental Clinic Encounter for screening for dental disorders Abdiel Mac. [address] [place], [address], [place]. tel:[phone] [facility], [address] [place], [place], [id number], [place] tel:[phone] Dental Clinic dental limited (chief complaint) Encounter for screening for dental disorders Yogesh Arreaga. [address] [place], [place], [id number] , [place]. tel:[phone] [facility], [address] [place], [place], [id number], [place] tel:[phone] Dental Clinic Dental New (chief complaint) Encounter for screening for dental disorders Yogesh Arreaga. [address] [place], [place], [id number] , [place]. tel:[phone] [facility], [address] [place] [address], [id number], [place] tel:[phone] Dental Clinic Encounter for screening for dental disorders Yogesh Arreaga. [address] [place], [place], [id number] , [place]. tel:[phone] [facility], [address] [place] [address], [id number], [place] tel:[phone] [facility] No Information Visci DO Chuy. [address] [place], [place], [id number] , [place]. [phone] Family History Family Member Type Diagnosis Age At Onset Father Problem (finding) hypertension Mother Problem (finding) dementia Father Problem (finding) atrial fibrillation Immunizations Vaccine Date Status Comments Pfizer COVID administered Source: New Imm unization Record Pfizer COVID administered Source: New Imm unization Record Payers Payer name Insurance type Covered democrat ID Authorafua restrepo(s) Zoya [facility] Dental Dual Elig [id number] [place] [facility]FC 190 [id number] [facility] [id number] [place] [facility]FC 190 [id number] Social History Type Description Quantity Date Captured [...] Lipid panel. Due on 025 due Goal FIT-DNA. Due on due Goal [...] due Goal Tdap. Due on due Goal Colonoscopy. Due on [...] C screening. Due o n due Goal FOBT. Due on due Goal CT-Colonography. Due on due Goal PRAPARE ASSESSMENT. Due on due Goal Hep A. Due on du e Goal Dietary management education , guidance, and counseling completed Goal Zoster vaccine (). Due on due [...] Hep A. Due on du e Goal Colonoscopy. Due on due Goal Influenza [...] due Goal HPV. Due on due Goal PRAPARE ASSESSMENT. Due [...] No Information Instructions Date Instruction Additional Infor hemalathaion Dietary management e ducation, guidance, and counseling Related to Body mass index [BMI] 25.0-25.9, adult Giving encouragement to exercise Related to Body mass index [BMI] 25.0-25.9, adult Assessments Type Assessment Date No Information Patient Care Teams Name Effective Dates (start - stop) Status Members No Information
--- OUTSIDE RECORDS SUMMARY | 2025-07-18 09:15 | XMS_ITS ---
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 No alcohol use. Encounters [facility]counter [facility] [address] [address] [facility]25 Jacob Felix Arthritis of right ankle M19.071 and Ankle impingement syndrome, right M25.871 Assessments Encounter Date Diagnosis (ICD Code) Assessment Notes Treatment Notes Treatment Clinical Notes Section Notes 07/18/2025 Arthritis of right ankle (ICD-10 - M19.071) Patient was seen and evaluated. Patient education provided and all questions answered to satisfaction. I recommended nonsurgical treatment at this time. Treatment advices included: - RICE therapy as well as shoe and activity modification - Physical therapy was offered however she declined secondary to work - Discussed medications and potential side effect. Medication(s) recommended: Voltaren topical - Imaging ordered: xrays were ordered and reviewed. Very mild anterior ankle joint space narrowing on lateral projection. No fracture. Hardware in foot is stable. Post-surgical changes to the calcaneus. After consent was obtained the skin was prepped with alcohol. Ethyl chloride was used to alleviate pain from the injection then an injection consisting of 1 cc of celestone was injected into the ankle. Patient tolerated the injection well and the site was dressed with a band-aide. Post-injection instructions were provided. 07/18/2025 Ankle impingement syndrome, right (ICD-10 - M25.871) Plan Of Treatment Treatment Notes Assessment Notes Arthritis of right ankle Patient was seen and evaluated. Patient education provided and all questions answered to satisfaction. I recommended nonsurgical treatment at this time. Treatment advices included: - RICE therapy as well as shoe and activity modification - Physical therapy was offered however she declined secondary to work - Discussed medications and potential side effect. Medication(s) recommended: Voltaren topical - Imaging ordered: xrays were ordered and reviewed. Very mild anterior ankle joint space narrowing on lateral projection. No fracture. Hardware in foot is stable. Post-surgical changes to the calcaneus. After consent was obtained the skin was prepped with alcohol. Ethyl chloride was used to alleviate pain from the injection then an injection consisting of 1 cc of celestone was injected into the ankle. Patient tolerated the injection well and the site was dressed with a band-aide. Post-injection instructions were provided. Next Appt Details Follow Up: 6 Weeks,prn, Reas on: History and Physical Notes * HPI (History of Present Illness) Category Sub-Category Detail Notes Category Not es Ankle Mary present s with a new problem regarding her right ankle. She relates to pain when walking and standing for prolonged periods. She relates to stiffness and discomfort with max dorsiflexion when wearing shoes. Her foot is doing really well. Denies injury but she has been more active over last several months. Examination Category Sub-Category Detail Notes Category Not es General Examination Skin: Skin intact. No sign of infection Neuro: LTS intact to plantar and dorsal foot. Negative tinel's sign Vasc: pedal pulses are palpable. No calf pain on squeeze MSK: POP anterior right ankle. Mild swelling anterior ankle. Negative anterior drawer. No crepitus with ROM Progress Notes * Oscar FUENTESOB:1970 (55 yo F)Acc No.[id number]:07/18/2025 New Patient Patient: Mary Garg Provider: Leo Felix DPM :1970 A ge:55 Y S ex:Female Date:07/18/2025 Phone: Address:[address], [place], [id number] Subjective: * Chief Complaints: * R ight Ankle Pain * HPI: A nkle: Mary presents with a new problem regarding her right ankle. She relates to pain when walking and standing for prolonged periods. She relates to stiffness and discomfort with max dorsiflexion when wearing shoes. Her foot is doing really well. Denies injury but she has been more active over last several months. * Medical History: Arthritis Asthma GERD High Blood Pressure Medical History Verified * Surgical History: Ankle Fusion Bilateral Flat Foot Correction Surgical History verified. * Family History: F ather: diagnosed with Essential hypertension, Heart disease. M other: diagnosed with Essential hypertension. F amily History Verified.. * Social History: Social History Verified. P cordelia is a nonsmoker. No alcohol use. * Medications: T akingAdderall Atenolol 50 MG Tablet Oral Losartan Potassium 50 MG Tablet Oral Diclofenac Sodium 75 MG Tablet Delayed Release Oral Zonisamide 50 MG Capsule Oral Mirtazapine 30 MG Tablet Oral Medication List reviewed and reconciled with the patientTaking Adderall Taking Atenolol 50 MG Tablet Oral Taking Losartan Potassium 50 MG Tablet Oral Taking Diclofenac Sodium 75 MG Tablet Delayed Release Oral Taking Zonisamide 50 MG Capsule Oral Taking Mirtazapine 30 MG Tablet Oral Medication List reviewed and reconciled with the patient * Allergies: N .K.D.A.yesAllergies Verified. Objective: * Examination: G eneral Examination: S kin: Skin intact. No sign of infection Neuro: LTS intact to plantar and dorsal foot. Negative tinel's sign Vasc: pedal pulses are palpable. No calf pain on squeeze MSK: POP anterior right ankle. Mild swelling anterior ankle. Negative anterior drawer. No crepitus with ROM. Assessment: * Assessment: 1. A rthritis of right ankle - M19.071 (Primary) 2 . A nkle impingement syndrome, right - M25.871 Plan: * Treatment: * Follow Up: 6 Weeks,prn Billing Information: * Visit Code: 47149 Office Visit, Est Pt., Level 3. * Procedure Codes: * Sign off status: Completed true * Provider: Leo Felix DPM Date: 07/18/2025 Generated for Philippe ardon/Osmin/Nilay on: 07/30/2025 07:44 AM EDT
--- OUTSIDE RECORDS SUMMARY | 2025-07-30 07:42 | XMS_ITS | Clinical Summary ---
Author Organization [employer] Address [id number] [address] [place] [address] Care Team Providers Care Manager Test Name Role Phone Dalia Morales DO, George R Primary Care Provider + Allergies Active Allergy Reactions Criticality Noted Date Comments Risperidone Other (See Comments) Low 08/28/2020 My Boobs Leak Medications rOPINIRole (REQUIP) 2 mg tablet Take 1 tablet (2 mg total) by mouth nightly. 1 mg in the morning 11/29/19 20 Active fluticasone-ume clidin-vilanter (TRELEGY ELLIPTA) 100-62.5-25 mcg [...] Active Additional Information Patient not taking.Reported on 07/15/2025 rimegepant 75 mg tablet,disinteg ratingIndicatio ns:Other migraine without status migrainosus, not intractable Dissolve 1 tablet on tongue daily as needed (Migraine headache). 12 tablet 4 10/23/20 Active Additional Information Patient not taking.Reported on 07/15/2025 galcanezumab-gn lm (EMGALITY PEN) 120 mg/mL pen injectorIndicat ions:Other migraine without status migrainosus, not intractable INJECT 120MG SUBCUTANEOUSLY ONCE EVERY 30 DAYS 1 mL 5 04/21/20 25 Active losartan (COZAAR) 25 mg tablet Take by mouth daily. Active baclofen (LIORESAL) 10 mg tablet TAKE 1/2 TO 1 TABLET BY MOUTH 3 TIMES A DAY 05/06/20 25 Active cholecalciferol , vitamin D3, 5,000 units tablet Take 1 tablet (5,000 Units total) by mouth. Active cyproheptadine (PERIACTIN) 4 mg tablet Take 1 tablet (4 mg total) by mouth daily as needed. 01/10/20 25 Active amphetamine-dex troamphetamine XR (ADDERALL XR) 25 mg 24 hr [...] drops drops Active colestipoL (COLESTID) 1 g tabletIndicatio ns:Diarrhea, unspecified type Take 1 tablet (1 g total) by mouth in the morning and 1 tablet (1 g total) before bedtime. 60 tablet 3 06/06/20 25 Active naltrexone (REVIA) 50 mg tablet Take 4.5 mg by mouth in the morning. Active Hospital, Clinic, or Other Facility Administered [...] Encounters Date Type Department Care Team Description 07/29/2025 Orders Only [facility], A Department of [address] [place] [phone] Noman Mayo MD Gastroparesis (Primary Dx); Diarrhea, unspecified type; Flatulence 07/28/2025 Telephone [facility], A Department of [address] [place] [phone] Re Mcghee RN 07/15/2025 9:00 AM EDT Office Visit [facility] Neurology, A Department of [facility] [address] [address] [place] [phone] Justin Bhat MD Neuropathy (Primary Dx); B12 deficiency; Hyperreflexia 07/15/2025 Travel 07/13/2025 Travel 07/03/2025 Results Follow-Up [facility] [address] [place] [address], [address] [place] [phone] Noman Mayo MD Surgical Pathology 06/27/2025 3:30 PM EDT - 06/27/2025 4:00 PM EDT Surgery [facility] [address] [place] [address], [address] [place] [phone] Noman Mayo MD ESOPHAGOGASTRODUODENOSCOPY BIOPSY [36998 (CPT )] 06/27/2025 2:57 PM EDT Anesthesia Event [facility] [address] [place] [address], [address] [place] [phone] Noman Mayo MD Raveane, Zorica, APRN-BECCA 06/27/2025 1:59 PM EDT - 06/27/2025 3:42 PM EDT Hospital Encounter [facility] [address] [place] [address], [address] [place] [address] Noman Mayo MD Gastroesophageal reflux disease, unspecified whether esophagitis present (Primary Dx); Gastroparesis; Early satiety; Bloating; Gas bloat syndrome Discharge Disposition: Home 06/27/2025 Travel 06/11/2025 Orders Only [facility] Neurology, A Department of [address] [place] [address] Ref Prov, Not In System 06/06/2025 9:00 AM EDT Office Visit [facility], A Department of [address] [place] [address] Vicki Roche, Noman Abraham MD Gastroparesis (Primary Dx); Esophageal dysphagia; Gastroesophageal reflux disease with esophagitis without hemorrhage; Diarrhea, unspecified type; Flatulence 06/04/2025 Telephone [facility], A Department of [address] [place] [address] Joanna Piper Results 06/04/2025 Travel 05/20/2025 Telephone [facility], A Department of [address] [place] [address] Joanna Piper sooner appointment 05/12/2025 Travel 05/07/2025 Telephone [facility], A Department of [address] [place] [address] Savanah Beyer Worsening Symptoms from Last 3 Months Family History Medical [...] PHQ-2 Answer Date Recorded Total Score 0 07/15/2025 Childcare Answer Date Recorded Childcare Unknown 04/17/2019 Employment Answer Date Recorded Employment Unknown 04/17/2019 Hunger Screening Answer Date Recorded Within the past 12 months we worried whether our food would run out before we got money to buy more. Never True 07/15/2025 Within the past 12 months th e food we bought just didn't last and we didn't have money to get more. Never True 07/15/2025 Purpose - Life Answer Date Recorded Purpose and direction in life Unknown Comments No Sex and Gender Information Value Date Recorded Sex Assigned at Female 07/28/2020 6:39 PM EDT Legal Sex Female 12:08 PM EDT Gender Identity Female 07/28/2020 6:39 PM EDT Sexual Orientation Not on file Last Filed Vital Signs Vital Sign Reading Time Taken Comments Blood Pressure 146/90 07/15/2025 8:57 AM EDT Pulse 72 07/15/2025 8:57 AM EDT Temperature 36.7 C (98.1 F) 06/27/2025 2:31 PM EDT Respiratory Rate 19 06/27/2025 3:30 PM EDT Oxygen Saturation 100% 06/27/2025 3:30 PM EDT Inhaled Oxygen Concentration - - Weight 76.7 kg (169 lb) 07/15/2025 8:57 AM EDT Height 162.6 cm (5' 4 ) 06/27/2025 2:30 PM EDT Body Mass Index 29.01 06/27/2025 2:30 PM EDT Plan of Treatment Upcoming Encounters Date Type Department Care Team (Late st Contact Info) Description 08/18/2025 9:15 AM EDT Appointment [facility] [address] [place] [address] 08/18/2025 9:45 AM EDT Appointment [facility] [address] [place] [address] 08/19/2025 3:30 PM EDT Office Visit [facility] Neurology, A Department of [address] [place] [phone] Pauline Christensen MD [address] [place] [address] [address] [place] [address] 10/08/2025 9:15 AM EST Appointment [facility] - Neurophysiology [address] [place] [address] [address] [place] [address] 10/14/2025 8:00 AM EST Office Visit [facility] Neurology, A Department of [address] [place] [phone] Justin Bhat MD [address] [place] [address] [address] [place], [place] [id number] Health Maintenance Due Date Last Done Comments Adult BMI Follow Up Plan 1990 Zoster (Shingles) Vaccine (2 of 2) 05/31/2024 04/05/2024 COVID-19 Vaccine (2024-2 6 season) 2025 11/24/2021, 05/11/2021, 04/20/2021 Influenza Vaccine 07/07/2025 12/11/2024, , 12/21/2023, Additional history exists Adult BMI Screening 07/15/2026 07/15/2025 Depression Screening 07/15/2026 07/15/2025 Tobacco Screening 07/15/2026 07/15/2025 DTaP,Tdap and Td Vaccines (2 - Td or Tdap) 06/22/2030 06/22/2020 Medical Devices Implanted 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 Device Identifier Shelf Expiration Date Model / Serial / Lot Generator Nrstm - [id number] Implanted:Qty: 1 on 01/02/2024 by Cullen Dawkins MD at [facility] Generator Right: Neck [employer] 09/20/2026 3028 / [id number] / Lead Ns Respiratory - [id number] Implanted:Qty: 1 on 01/02/2024 by Cullen Dawkins MD at [facility] Implant Lead Right: Neck [employer] 10/20/2026 4340 / [id number] / Lead Nrstm Inspr 3 Elect Cuf Tnl Boni Strl Lf - [id number] - [id number] Implanted:Qty: 1 on 01/02/2024 by Cullen Dawkins MD at [facility] Neuro Stimulator Right: Neck [employer] 07/19/2026 4063 / [id number] / Procedures Procedure Name Priority Date/Time Associated Diagnosis Comments SERUM IMMUNOFIXATION Routine 07/16/2025 6:35 AM EDT Neuropathy FREE LIGHT CHAINS Routine 07/16/2025 6:3 5 AM EDT Neuropathy METHYLMALONIC ACID, QN, P Routine 07/16/2025 6:35 AM EDT Neuropathy B12 deficiency VITAMIN B12 Routine 07/16/2025 6:35 AM EDT Neuropathy B12 deficiency SURGICAL PATHOLOGY Routine 06/27/2025 3: 07 PM EDT OR EGD TRANSORAL BIOPSY SINGLE/MULTIPLE 06/27/2025 2:58 PM EDT esophageal dysphagia Case Notes RAMYA, MAC, ASA 2 EGD 06/27/2025 2:52 PM EDT PROVATION EGD Routine 06/27/2025 2:34 PM EDT PROTEIN ELECTROPHORESIS, URINE Routine 05/14/2025 5:00 AM [...] EDT from Last 3 Months Results * Methylmalonic Acid, QN, P (07/16/2025 6:35 AM EDT) METHYLMALONIC ACID, QN, P 0.09 <=0.40 nmol/mL 07/18/2025 10:20 AM EDT [facility] Comment: ADDITIONAL INFORMATION This test was developed and its performance characteristics determined by [facility] in a manner consistent with CLIA requirements. This test has not been cleared or approved by the U.S. Food and Drug Administration. Test Performed by: [address] [address] Combustion Engineer: Sindi Archibald Ph.D.; CLIA# [id number] Blood Venous blood / Unknown Venipuncture / Unknown 07/16/2025 6:35 AM EDT 07/16/2025 6:35 AM EDT us Justin Bhat MD LAB BLOOD ORDERABLES Final R esult [address] [address], [place] * Serum Immunofixation (07/16/2025 6:35 AM EDT) IGA 213 68 - 378 mg/dL 07/17/2025 9:28 AM EDT [facility] IGG 691 635 - 1,741 mg/dL 07/17/2025 9:28 AM EDT [facility] IGM 66 45 - 281 mg/dL 07/17/2025 9:28 AM EDT [facility] IMMUNOFIX INTERP Unremarkable pattern and quantitation, no monoclonal bands 07/17/2025 9:28 AM EDT [facility] Blood Venous blood / Unknown Venipuncture / Unknown 07/16/2025 6:35 AM EDT 07/16/2025 6:35 AM EDT Justin Bhat MD LAB BLOOD ORDERABLES Final R esult [facility] [address] [place] [address], [place] [phone] * Free light chains (07/16/2025 6:35 AM EDT) Pathologist [facility] FREE SAUL/LAMBD RATIO 0.88 0.26 - 1.65 07/16/2025 4:55 PM EDT [facility] FREE KAPPA LT CHAINS 1.69 0.33 - 1.94 mg/dL 07/16/2025 4:55 PM EDT [facility] FREE LAMBDA LT CHAINS 1.93 0.57 - 2.63 mg/dL 07/16/2025 4:55 PM EDT [facility] Blood Venous blood / Unknown Venipuncture / Unknown 07/16/2025 6:35 AM EDT 07/16/2025 6:35 AM EDT Justin Bhat MD LAB BLOOD ORDERABLES Final R esult [facility] [address] [place] [address], * Vitamin B12 (07/16/2025 6:35 AM EDT) Only the most recent of2 resultswithin the time period is included. VITAMIN B12 730 180 - 914 pg/mL 07/16/2025 2:38 PM EDT [facility] Blood Venous blood / Unknown Venipuncture / Unknown 07/16/2025 6:35 AM EDT 07/16/2025 6:35 AM EDT Justin Bhat MD LAB BLOOD ORDERABLES Final R esult [facility] [address] [place] [address], * Surgical Pathology (06/27/2025 3:07 PM EDT) Case Report Surgical Pathology Report Case: [id number] Authorizing Provider: Noman Mayo MD Collected: 06/27/2025 1507 Ordering Location: [facility] Received: 06/27/2025 1512 - Endoscopy Pathologist: Irina Rutherford MD Specimens: 1) - Stomach, gastric bx, r/o h. pylori 2) - Duodenum, duodenal bx, r/o celiac disease & disaccharidase 07/02/2025 2:32 PM EDT [facility] Final Diagnosis Stomach, biopsy: Reactive/chemical gastropathy. - H. pylori immunostain is negative for H. pylori organisms. Duodenum, biopsy: Negative for celiac disease. 07/02/2025 2:32 PM EDT [facility] at 1432 EDT Gross Description 1. Received in formalin labeled ALFREDO, gastric biopsy , are 4 jaimes feathery tissue bits 0.3 cm - 0.5 cm. The specimen is filtered and submitted entirely in a single cassette. (1,ns,[id number] , m1) SW 2. Received in formalin labeled ALFREDO, duodenal biopsy , are 6 jaimes feathery tissue bits 0.2 cm - 0.3 cm. The specimen is filtered and submitted entirely in a single cassette. (1,ns,[id number] , m1) SW 07/02/2025 2:32 PM EDT [facility] Embedded Images 07/02/2025 2:32 PM EDT [facility] Tissue Stomach structure / Unknown 06/27/2025 3:07 PM EDT 06/27/2025 3:12 PM EDT Comment:Pre-op diagnosis: esophageal dysphagia Tissue specimen (specimen) (Duodenum) 06/27/2025 3:07 PM EDT 06/27/2025 3:12 PM EDT Comment:Pre-op diagnosis: esophageal dysphagia Noman Mayo MD PATHOLOGY/CYTOLOGY ORDERAB LES Final Result [facility] [address] [place] [address], [place] [phone] * EGD (06/27/2025 2:52 PM EDT) 06/27/2025 2:52 PM EDT Narrative PM CARDIOVASCULAR - 06/27/2025 3:19 PM EDT [facility] Patient Name: Mary Leal Procedure Date: 06/27/2025 2:52 PM CSN: [id number] Date of : 1970 Admit Type: Outpatient Age: 55 Room: [facility] Gender: Female Note Status: Finalized Attending MD: Noman Mayo MD, Procedure: Upper GI endoscopy Indications: Dysphagia, Suspected gastro-esophageal reflux disease, Follow-up of Helicobacter pylori, Abdominal bloating, Dyspepsia, Early satiety Providers: Noman Maoy MD Referring MD: Eliceo Gómez Jr Requesting Provider: Medicines: Monitored Anesthesia Care Complications: No immediate complications. Procedure: After obtaining informed consent, the endoscope was passed under direct vision. Throughout the procedure, the patient's blood pressure, pulse, and oxygen saturations were monitored continuously. The Endoscope was introduced through the mouth, and advanced to the third part of duodenum. The upper GI endoscopy was accomplished without difficulty. The patient tolerated the procedure well. Findings: The examined esophagus was normal. Localized mild inflammation characterized by erythema and granularity was found in the gastric antrum. Biopsies were taken with a cold forceps for histology and Helicobacter pylori testing. Estimated blood loss was minimal. A few 2 mm sessile polyps with no stigmata of recent bleeding were found in the gastric fundus. No other significant abnormalities were identified in a careful examination of the stomach. The duodenal bulb, second portion of the duodenum and third portion of the duodenum were normal. Biopsies were taken with a cold forceps for histology. Estimated blood loss was minimal. Estimated Blood Loss: Estimated blood loss was minimal. Impression: - Normal esophagus. - Gastritis, characterized by erythema and granularity. Biopsied. - A few gastric polyps. - Normal duodenal bulb, second portion of the duodenum and third portion of the duodenum. Biopsied. Recommendation: - Discharge patient to home. - Await pathology results. - Telephone GI clinic for pathology results in 1 week. Procedure Code(s): --- Professional --- 75011, Esophagogastroduodenoscopy, flexible, transoral; with biopsy, single or multiple Diagnosis Code(s): --- Professional --- K29.70, Gastritis, unspecified, without bleeding K31.7, Polyp of stomach and duodenum R13.10, Dysphagia, unspecified B96.81, Helicobacter pylori [H. pylori] as the cause of diseases classified elsewhere R14.0, Abdominal distension (gaseous) R10.13, Epigastric pain R68.81, Early satiety CPT copyright 2022 [employer]. All rights reserved. The codes documented in this report are preliminary and upon certified professional coder review may be revised to meet current compliance requirements. MD Noman Pires MD 06/27/2025 3:19:38 PM This report has been signed electronically.Noman Mayo MD Number of Addenda: 0 Note Initiated On: 06/27/2025 2:52 PM Procedure Note Noman Mayo MD - 06/27/2025 [facility] Patient Name: Mary Leal Procedure Date: 06/27/2025 2:52 PM CSN: [id number] Date of : 1970 Admit Type: Outpatient Age: 55 Room: [facility] Gender: Female Note Status: Finalized Attending MD: Noman Mayo MD, Procedure: Upper GI endoscopy Indications: Dysphagia, Suspected gastro-esophagealreflux disease, Follow-up of Helicobacter pylori, Abdominal bloating, Dyspepsia, Earlysatiety Providers: Noman Mayo MD Referring MD: Eliceo Gómez Jr Requesting Provider: Medicines: Monitored Anesthesia Care Complications: No immediate complications. Procedure: After obtaining informed consent, theendoscope was passed under direct vision. Throughoutthe procedure, the patient's blood pressure,pulse, and oxygen saturations were monitored continuously. The Endoscope was introduced through the mouth, and advanced to the third part of duodenum. The upper GI endoscopy was accomplished without difficulty. The patient tolerated the procedure well. Findings: The examined esophagus was normal. Localized mild inflammation characterized by erythema and granularity was found in the gastric antrum. Biopsies were taken with a coldforceps for histology and Helicobacter pylori testing. Estimated blood losswas minimal. A few 2 mm sessile polyps with no stigmata of recent bleeding werefound in the gastric fundus. No other significant abnormalities were identified in a careful examination of the stomach. The duodenal bulb, second portion of the duodenum and third portionof the duodenum were normal. Biopsies were taken with a cold forceps for histology. Estimated blood loss was minimal. Estimated Blood Loss: Estimated blood loss was minimal. Impression: - Normal esophagus. - Gastritis, characterized by erythema and granularity. Biopsied. - A few gastric polyps. - Normal duodenal bulb, second portion ofthe duodenum and third portion of the duodenum. Biopsied. Recommendation: - Discharge patient to home. - Await pathology results. - Telephone GI clinic for pathology resultsin 1 week. Procedure Code(s): --- Professional --- 06597, Esophagogastroduodenoscopy, flexible, transoral; with biopsy, single or multiple Diagnosis Code(s): --- Professional --- K29.70, Gastritis, unspecified, withoutbleeding K31.7, Polyp of stomach and duodenum R13.10, Dysphagia, unspecified B96.81, Helicobacter pylori [H. pylori] asthe cause of diseases classified elsewhere R14.0, Abdominal distension (gaseous) R10.13, Epigastric pain R68.81, Early satiety CPT copyright 2022 [employer]. All rights reserved. The codes documented in this report are preliminary and upon certified professional coder reviewmay be revised to meet current compliance requirements. MD Noman Pires MD 06/27/2025 3:19:38 PM This report has been signed electronically.Noman Mayo MD Number of Addenda: 0 Note Initiated On: 06/27/2025 2:52 PM Noman Mayo MD GI PROCEDURE ORDERABLES Fi nal Result PM CARDIOVASCULAR * EGD Report (06/27/2025 2:34 PM EDT) Narrative SYSTEMGENERATED, DOCUMENTATION - 06/27/2025 2:34 PM EDT This order has been auto-finalized for image and report archival in PACs. *For full report details, please reach out to your physician. This image is visible to you in MyChart.* Noman Mayo MD IMG OR IMG ORDERABLES Emilie l Result * Protein electrophoresis, urine (05/14/2025 5:00 AM EDT) Pathologist [facility] [place] Urine Protein Electrophoresis Interp Unremarkable protein distribution, no monoclonal bands 05/16/2025 5:14 PM EDT [facility] Urine Collection / Unknown 05/14/2025 5:00 AM EDT 05/14/2025 7:04 AM EDT Pauline Christensen MD URINE ORDERABLES Final Result [facility] [address] [place] [address], [place] [phone] * Heavy Metals Scrn with Demographics (05/13/2025 6:48 AM EDT) Pathologist [facility] HEAVY METAL VENOUS/CAPILLARY Venous 05/14/2025 2:29 PM EDT [facility] ARSENIC, B <1 <13 ng/mL 05/14/2025 2:29 PM EDT [facility] Comment: ADDITIONAL INFORMATION This test was developed and its performance characteristics determined by [facility] in a manner consistent with CLIA requirements. This test has not been cleared or approved by the U.S. Food and Drug Administration. CADMIUM, B <0.2 <5.0 ng/mL 05/14/2025 2:29 PM EDT [facility] Comment: ADDITIONAL INFORMATION This test was developed and its performance characteristics determined by [facility] in a manner consistent with CLIA requirements. This test has not been cleared or approved by the U.S. Food and Drug Administration. MERCURY, B <1 <10 ng/mL 05/14/2025 2:29 PM EDT [facility] Comment: ADDITIONAL INFORMATION This test was developed and its performance characteristics determined by [facility] in a manner consistent with CLIA requirements. This test has not been cleared or approved by the U.S. Food and Drug Administration. LEAD, B <1.0 <3.5 mcg/dL 05/14/2025 2:29 PM EDT [facility] Comment: ADDITIONAL INFORMATION Testing performed by Triple Quadrupole Inductively Coupled Plasma-Mass Spectrometry (ICP-MS/MS). This test was developed and its performance characteristics determined by [facility] in a manner consistent with CLIA requirements. This test has not been cleared or approved by the U.S. Food and Drug Administration. Blood Venous blood / Unknown Venipuncture / Unknown 05/13/2025 6:48 AM EDT 05/13/2025 6:48 AM EDT us Pauline Christensen MD LAB BLOOD ORDERABLES Final Resu lt Performing Organization Address [facility]/ZIP Co de Phone Number [facility] [address] [place] [address], [place] * Vitamin B6 Profile (PLP and PA), P (05/13/2025 6:48 AM EDT) PYRIDOXIC ACID (PA), P 6 3 - 30 mcg/L 05/16/2025 4:16 PM EDT [facility] Comment: ADDITIONAL INFORMATION This test was developed and its performance characteristics determined by [facility] in a manner consistent with CLIA requirements. This test has not been cleared or approved by the U.S. Food and Drug Administration. Test Performed by: [facility] [address] [place] [address] Combustion Engineer: Sindi Archibald Ph.D.; CLIA# [id number] PYRIDOXAL 5-PHOSPHATE (PLP), P 10 5 - 50 mcg/L 05/16/2025 4:16 PM EDT [facility] Comment: ADDITIONAL INFORMATION This test was developed and its performance characteristics determined by [facility] in a manner consistent with CLIA requirements. This test has not been cleared or approved by the U.S. Food and Drug Administration. Blood Venous blood / Unknown Venipuncture / Unknown 05/13/2025 6:48 AM EDT 05/13/2025 6:48 AM EDT us Pauline Christensen MD LAB BLOOD ORDERABLES Final Resu lt Performing Organization Address [facility]/ZIP Co de Phone Number [facility] [address] [place] [address], [place] * Thiamin (Vitamin B1), WB (05/13/2025 6:48 AM EDT) THIAMIN (VITAMIN B1), WB 114 70 - 180 nmol/L 05/15/2025 12:50 PM EDT [facility] Comment: ADDITIONAL INFORMATION This test was developed and its performance characteristics determined by [facility] in a manner consistent with CLIA requirements. This test has not been cleared or approved by the U.S. Food and Drug Administration. Test Performed by: [place] [address] Combustion Engineer: Sindi Archibald Ph.D.; CLIA# [id number] Blood Venous blood / Unknown Venipuncture / Unknown 05/13/2025 6:48 AM EDT 05/13/2025 6:48 AM EDT Pauline Christensen MD LAB BLOOD ORDERABLES Final Resu lt [facility] [address] [place] [address], * Copper, S (05/13/2025 6:48 AM EDT) [facility] COPPER 110 77 - 206 mcg/dL 05/14/2025 2:13 PM EDT [facility] [employer] Comment: ADDITIONAL INFORMATION This test was developed and its performance characteristics determined by [facility] in a manner consistent with CLIA requirements. This test has not been cleared or approved by the U.S. Food and Drug Administration. Test Performed by: [place] [address] Combustion Engineer: Sindi Archibald Ph.D.; CLIA# [id number] Blood Venous blood / Unknown Venipuncture / Unknown 05/13/2025 6:48 AM EDT 05/13/2025 6:48 AM EDT us Pauline Christensen MD LAB BLOOD ORDERABLES Final Resu lt [facility] [address] [place] [address], [place] * Thyroid Stimulating Hormone (TSH) (05/13/2025 6:48 AM EDT) TSH 3.16 0.49 - 4.67 uIU/mL 05/13/2025 2:03 PM EDT [facility] Blood Venous blood / Unknown Venipuncture / Unknown 05/13/2025 6:48 AM EDT 05/13/2025 6:48 AM EDT us Pauline Christensen MD LAB BLOOD ORDERABLES Final Resu lt [facility] [address] [place] [id number], [place] [phone] * Protein electrophoresis, serum (05/13/2025 6:48 AM EDT) TOTAL PROTEIN 6.2 6.0 - 8.0 g/dL 05/14/2025 9:57 AM EDT [facility] ALPHA 1 GLOBULIN 0.3 0.1 - 0.4 g/dL 05/14/2025 9:57 AM EDT [facility] ALPHA 2 GLOBULIN 0.6 0.4 - 1.1 g/dL 05/14/2025 9:57 AM EDT [facility] BETA GLOBULIN 0.8 0.5 - 1.2 g/dL 05/14/2025 9:57 AM EDT [facility] GAMMA GLOBULIN 0.7 0.5 - 1.6 g/dL 05/14/2025 9:57 AM EDT [facility] Protein Electrophoresis Interp Unremarkable protein distribution, no monoclonal bands 05/14/2025 9:57 AM EDT [facility] Albumin 3.9 3.4 - 5.3 g/dL 05/14/2025 9:57 AM EDT [facility] Blood Venous blood / Unknown Venipuncture / Unknown 05/13/2025 6:48 AM EDT 05/13/2025 6:48 AM EDT us Pauline Christensen MD LAB BLOOD ORDERABLES Final Resu lt Performing Organization Address City/[facility]/ZIP Co de Phone Number [facility] [address] [place] [address], * Hemoglobin A1c (05/13/2025 6:48 AM EDT) HEMOGLOBIN A1C 5.2 4.4 - 5.6 % 05/13/2025 10:21 AM EDT [facility] Comment: ADA Guidelines Result HgbA1c Normal : less than 5.7 % Prediabetes : 5.7 % to 6.4 % Diabetes : > 6.4 % Use with caution in patients with abnormal hemoglobin variants as the half-life of red blood cells and in vivo glycation rates are affected. EST. AVERAGE GLUCOSE 103 mg/dL 05/13/2025 10:21 AM EDT [facility] Blood Venous blood / Unknown Venipuncture / Unknown 05/13/2025 6:48 AM EDT 05/13/2025 6:48 AM EDT us Pauline Christensen MD LAB BLOOD ORDERABLES Final Resu lt [facility] [address] [place] [address], [place] [phone] * Folate Serum (05/13/2025 6:48 AM EDT) FOLIC ACID >25.0 >5.8 ng/mL 05/13/2025 2:14 PM EDT [facility] Blood Venous blood / Unknown Venipuncture / Unknown 05/13/2025 6:48 AM EDT 05/13/2025 6:48 AM EDT us Pauline Christensen MD LAB BLOOD ORDERABLES Final Resu lt [facility] [address] [place] [address], [place] [phone] * EMG With NCV (04/30/2025 4:07 PM EDT) us Not In System Ref Prov NEUROLOGY ORDERABLES Emilie l Result MANUALLY TRANSCRIBED RESULTS from Last 3 Months Insurance [place]ICAID [place] [employer] MEDICARE Care Teams Manager Test Relationship Specialty Start Date End Date Eliceo Gómez Jr., DO [address] [place] [address], [address], [place] [address] PCP - General Family Medicine 12/11/19 Jenna Butler [address] Consulting Physician Behavioral Health 12/20/23
--- OUTSIDE RECORDS SUMMARY | 2025-07-30 07:42 | XMS_ITS | Encounter Summary ---
Author Organization [facility] Address [address] [facility] [place] [address] Care Team Providers Care Petal Cutter Name Role Phone Eliceo Gómez DO Primary Care Provider [phone] Eliceo Gómez DO Unavailable [phone] Juan Damico DO Unavailable [phone] Encounter Details Date Type Department Care Team (Late st Contact Info) Description 04/30/2025 Abstract [facility] [place] [facility] [address] [facility] [address] [place] [phone] Eliceo Gómez DO [address] [facility] [address] [place] [address] Social History Tobacco Use Types [...] often do you attend chur ch or amish services? Never 05/01/2024 Do you [...] Recorded Patient Health Questionnaire-2 Score 0 01/20/2025 [facility] [place] of Occupat ional Health - Occupational Stress [...] any time in the past 12 m [facility], were you homeless or living in [...] Care Team (Late st Contact Info) Description 08/27/2025 3:50 PM EDT Office Visit [facility] [address] [place] [address] Adriana Cruz MD [address] [place] [address] 11/20/2025 8:30 AM EST Office Visit [facility] [address] [place] [address] Nelsy Harris, PHLEBOTOMIST PRN-REFRACTORY GRINDER OPERATOR [address] [place] [address] documented as of this encounter Visit Diagnoses Not on filedocumented in this encounter Additional Health Concerns Assessment Noted Time PHQ-9 Depression Total Score: 0 01/21/20 25 1:00 PM EDT documented as of this encounter Care Teams Petal Cutter Relationship Specialty Start Date End Date Eliceo Gómez DO [address] [place] [address] PCP - General Family Medicine 04/04/23 Eliceo Gómez DO [address] [place] [address] PCP - [facility] 05/06/23 Juan Damico DO [address] [place] [address] Referring Physician Obstetrics and Gynecology 05/20/24 documented as of this encounter
--- OUTSIDE RECORDS SUMMARY | 2025-07-30 07:42 | XMS_ITS | Encounter Summary ---
Author Organization [facility] tem Address [id number] [address] [place] [address] Care Team Providers Care Assistant Casino Shift Manager Name Role Phone Dalia Morales DO, George R Primary Care Provider + Reason for Visit * Reason Onset Date Comments Worsening Symptoms 05/07/2025 Encounter Details Date Type Department Care Team (Late st Contact Info) Description 05/07/2025 Telephone [facility], A Department of [facility] [address] [facility] [address] [place] [address] Savanah Beyer Worsening Symptoms Social [...] 19, 2025 Appointment Provider:Pauline Christensen MD in [facility] * Telephone Encounter - Kim Acharya [...] We have [facility] after she received Inspire device- [...] Joanna Piper - 05/07/2025 8:51 AM EDT Rolling Down Machine Operator received a call from patient regarding below encounter. Patient expressed she was returning call to discuss. Please advise . Patient would like a call back . Mary [phone]. * Telephone Encounter - Kim Acharya RN - 05/07/2025 8:51 AM EDT RN called patient again and had to leave another . If patient calls back, please see if RN is able to take call as our office has reached out 3 times * Telephone Encounter - Kim Acharya RN - 05/07/2025 8:51 AM EDT RN received transferred call from front sight attacher. Patient state she is still taking Requip for her RLS and it is helping with that. He is also takingher iron supplement. She did state that she is having a change in sensation, pain and heaviness in legs. She had an EMG done at [place] [facility] and her mercerizing range controller wanted her to speak with our office regarding results. RN advised on lab orders what will be placed to be completed and we will get EMG results from [place] for review and advise further once this is completed. She stated understanding. * Telephone Encounter - Kmi Acharya RN - 05/07/2025 8:51 AM EDT RN attempted to call [facility] in [place] to get reports faxed but no answer x2 and no option to leave VM. Did get fax # from recording. RN faxed request for EMG reports to be sent to our office. * Telephone Encounter - Kiara Álvarez - 05/07/2025 8:51 AM EDT Rolling Down Machine Operator received call from patient in regards to encounter below. Stated she has been speaking with nurse. She is requesting to be sooner by Dr Christensen due to her new symptoms. Please advise she can be reached at [phone] Thank you so much * Telephone Encounter - Pauline Chritsensen MD - 05/07/2025 8:51 AM EDT We [...] Kiara Álvarez - 05/07/2025 8:51 AM EDT Rolling Down Machine Operator received call from patient regarding encounter below . Patient called to advise that she hasalso called to get results sent over for her EMG. documented in this encounter Plan of Treatment Upcoming Encounters Date Type Department Care Team (Late st Contact Info) Description 08/18/2025 9:15 AM EDT Appointment [facility] [address] [place] [address] 08/18/2025 9:45 AM EDT Appointment [facility] [address] [place] [address] 08/19/2025 3:30 PM EDT Office Visit [facility], A Department of [address] [place] [address] Pauline Christensen MD [address] [place] [address] [address], [address] [place] [address] 10/08/2025 9:15 AM EST Appointment [facility] - Neurophysiology [address] [place], [place] [address]E [address] [place] [address] 10/14/2025 8:00 AM EST Office Visit [facility], A Department of [address] [place] [phone] Justin Bhat MD [address] [place] [address] 101, [address] [place] [id number] documented as of this encounter Results * Protein electrophoresis, urine (05/14/2025 5:00 AM EDT) Urine Protein Electrophoresis Interp Unremarkable protein distribution, no monoclonal bands 05/16/2025 5:14 PM EDT [facility] Urine Collection / Unknown 05/14/2025 5:00 AM EDT 05/14/2025 7:04 AM EDT Pauline Christensen MD URINE ORDERABLES Final Result [facility] [address] [place] [address] [address] [place] [address], * Thiamin (Vitamin B1), WB (05/13/2025 6:48 AM EDT) THIAMIN (VITAMIN B1), WB 114 70 - 180 nmol/L 05/15/2025 12:50 PM EDT [facility] Comment: ADDITIONAL INFORMATION This test was developed and its performance characteristics determined by [facility] in a manner consistent with CLIA requirements. This test has not been cleared or approved by the U.S. Food and Drug Administration. Test Performed by: [facility] - [facility] [address] [place] [address] Ex Assistant/Program Director: Sindi Archibald Ph.D.; CLIA# [id number] Blood Venous blood / Unknown Venipuncture / Unknown 05/13/2025 6:48 AM EDT 05/13/2025 6:48 AM EDT us Pauline Christensen MD LAB BLOOD ORDERABLES Final Resu lt [facility] [address] [place] [address], * Protein electrophoresis, serum (05/13/2025 6:48 AM EDT) TOTAL PROTEIN 6.2 6.0 - 8.0 g/dL 05/14/2025 9:57 AM EDT [facility] ALPHA 1 GLOBULIN 0.3 0.1 - 0.4 g/dL 05/14/2025 9:57 AM EDT [facility] ALPHA 2 GLOBULIN 0.6 0.4 - 1.1 g/dL 05/14/2025 9:57 AM EDT [facility] BETA GLOBULIN 0.8 0.5 - 1.2 g/dL 05/14/2025 9:57 AM EDT [facility] GAMMA GLOBULIN 0.7 0.5 - 1.6 g/dL 05/14/2025 9:57 AM EDT [facility] Protein Electrophoresis Interp Unremarkable protein distribution, no monoclonal bands 05/14/2025 9:57 AM EDT [facility] Albumin 3.9 3.4 - 5.3 g/dL 05/14/2025 9:57 AM EDT [facility] Blood Venous blood / Unknown Venipuncture / Unknown 05/13/2025 6:48 AM EDT 05/13/2025 6:48 AM EDT us Pauline Christensen MD LAB BLOOD ORDERABLES Final Resu lt [facility] [address] [place] [address], [place] [phone] * Heavy Metals Scrn with Demographics (05/13/2025 6:48 AM EDT) HEAVY METAL VENOUS/CAPILLARY Venous 05/14/2025 2:29 PM EDT [facility] ARSENIC, B <1 <13 ng/mL 05/14/2025 2:29 PM EDT [facility] Comment: ADDITIONAL INFORMATION This test was developed and its performance characteristics determined by [facility] in a manner consistent with CLIA requirements. This test has not been cleared or approved by the U.S. Food and Drug Administration. CADMIUM, B <0.2 <5.0 ng/mL 05/14/2025 2:29 PM EDT [facility] Comment: ADDITIONAL INFORMATION This test was developed and its performance characteristics determined by [facility] in a manner consistent with CLIA requirements. This test has not been cleared or approved by the U.S. Food and Drug Administration. MERCURY, B <1 <10 ng/mL 05/14/2025 2:29 PM EDT [facility] Comment: ADDITIONAL INFORMATION This test was developed and its performance characteristics determined by [facility] in a manner consistent with CLIA requirements. This test has not been cleared or approved by the U.S. Food and Drug Administration. LEAD, B <1.0 <3.5 mcg/dL 05/14/2025 2:29 PM EDT [facility] Comment: ADDITIONAL INFORMATION Testing performed by Triple Quadrupole Inductively Coupled Plasma-Mass Spectrometry (ICP-MS/MS). This test was developed and its performance characteristics determined by [facility] in a manner consistent with CLIA requirements. This test has not been cleared or approved by the U.S. Food and Drug Administration. Blood Venous blood / Unknown Venipuncture / Unknown 05/13/2025 6:48 AM EDT 05/13/2025 6:48 AM EDT Pauline Christensen MD LAB BLOOD ORDERABLES Final Resu lt Performing Organization Address [facility] Co de Phone Number [facility] [address] [place] [address], [place] * Copper, S (05/13/2025 6:48 AM EDT) COPPER 110 77 - 206 mcg/dL 05/14/2025 2:13 PM EDT [facility] Comment: ADDITIONAL INFORMATION This test was developed and its performance characteristics determined by [facility] in a manner consistent with CLIA requirements. This test has not been cleared or approved by the U.S. Food and Drug Administration. Test Performed by: [facility] [place] [address] Ex Assistant/Program Director: Sindi Archibald Ph.D.; CLIA# [id number] Blood Venous blood / Unknown Venipuncture / Unknown 05/13/2025 6:48 AM EDT 05/13/2025 6:48 AM EDT Pauline Christensen MD LAB BLOOD ORDERABLES Final Resu lt Performing Organization Address [facility] Co de Phone Number [facility] [address] [place] [address], [place] * Folate Serum (05/13/2025 6:48 AM EDT) FOLIC ACID >25.0 >5.8 ng/mL 05/13/2025 2:14 PM EDT [facility] Blood Venous blood / Unknown Venipuncture / Unknown 05/13/2025 6:48 AM EDT 05/13/2025 6:48 AM EDT Pauline Christensen MD LAB BLOOD ORDERABLES Final Resu lt [facility] [address] [place] [address], [place] [phone] * Vitamin B6 Profile (PLP and PA), P (05/13/2025 6:48 AM EDT) Pathologist [facility] PYRIDOXIC ACID (PA), P 6 3 - 30 mcg/L 05/16/2025 4:16 PM EDT [facility] Comment: ADDITIONAL INFORMATION This test was developed and its performance characteristics determined by [facility] in a manner consistent with CLIA requirements. This test has not been cleared or approved by the U.S. Food and Drug Administration. Test Performed by: [facility] [place] [address] Ex Assistant/Program Director: Sindi Archibald Ph.D.; CLIA# [id number] PYRIDOXAL 5-PHOSPHATE (PLP), P 10 5 - 50 mcg/L 05/16/2025 4:16 PM EDT [facility] Comment: ADDITIONAL INFORMATION This test was developed and its performance characteristics determined by [facility] in a manner consistent with CLIA requirements. This test has not been cleared or approved by the U.S. Food and Drug Administration. Blood Venous blood / Unknown Venipuncture / Unknown 05/13/2025 6:48 AM EDT 05/13/2025 6:48 AM EDT Pauline Christensen MD LAB BLOOD ORDERABLES Final Resu lt [facility] [address] [place] [address], [place] * Vitamin B12 (05/13/2025 6:48 AM EDT) Pathologist [facility] VITAMIN B12 214 180 - 914 pg/mL 05/13/2025 2:15 PM EDT [facility] Blood Venous blood / Unknown Venipuncture / Unknown 05/13/2025 6:48 AM EDT 05/13/2025 6:48 AM EDT Pauline Christensen MD LAB BLOOD ORDERABLES Final Resu lt Performing Organization Address City/[facility]/ZIP Co de Phone Number [facility] [address] [place] [address], * Thyroid Stimulating Hormone (TSH) (05/13/2025 6:48 AM EDT) [facility] TSH 3.16 0.49 - 4.67 uIU/mL 05/13/2025 2:03 PM EDT [facility] Blood Venous blood / Unknown Venipuncture / Unknown 05/13/2025 6:48 AM EDT 05/13/2025 6:48 AM EDT Pauline Christensen MD LAB BLOOD ORDERABLES Final Resu lt Performing Organization Address City/[facility]/ZIP Co de Phone Number [facility] [address] [place] [address], [place] [phone] * Hemoglobin A1c (05/13/2025 6:48 AM EDT) [facility] HEMOGLOBIN A1C 5.2 4.4 - 5.6 % 05/13/2025 10:21 AM EDT [facility] Comment: ADA Guidelines Result HgbA1c Normal : less than 5.7 % Prediabetes : 5.7 % to 6.4 % Diabetes : > 6.4 % Use with caution in patients with abnormal hemoglobin variants as the half-life of red blood cells and in vivo glycation rates are affected. EST. AVERAGE GLUCOSE 103 mg/dL 05/13/2025 10:21 AM EDT [facility] Blood Venous blood / Unknown Venipuncture / Unknown 05/13/2025 6:48 AM EDT 05/13/2025 6:48 AM EDT us Pauline Christensen MD LAB BLOOD ORDERABLES Final Resu lt [facility] [address] [place] [address], documented in this encounter Visit Diagnoses Diagnosis Neuropathy- Primary Mononeuritis of unspecified site documented in this encounter Additional Health Concerns Assessment Noted Time PHQ-9 Depression Total Score: 0 10/23/20 23 1:26 PM EST documented as of this encounter Care Teams Assistant Casino Shift Manager Relationship Specialty Start Date End Date Eliceo Gómez Jr., [address] [facility], [address], [place] [address] PCP - General Family Medicine 12/11/19 Jenna Butler [address] Consulting Physician Behavioral Health 12/20/23 documented as of this encounter
--- OUTSIDE RECORDS SUMMARY | 2025-07-30 07:42 | XMS_ITS | Encounter Summary ---
Author Organization [facility] Address [address] [place] [address] Care Team Providers Care Sign Fabricator Name Role Phone Eliceo Gómez DO Primary Care Provider [phone] Eliceo Gómez DO Unavailable [phone] Beata Hernandez Unavailable Juan Damico DO Unavailable [phone] Encounter Details Date Type Department Care Team [...] often do you attend chur ch or christian services? Never 04/14/2023 Do you [...] Recorded Patient Health Questionnaire-2 Score 0 10/03/2023 [facility] - Occupational Stress Questionnaire Answer Date Recorded [...] Dermatology [address] [place] [address] Adriana Cruz MD [address] [place] [address] 11/20/2025 8:30 AM EST Office Visit [facility] [address] [place] [address] Nelsy Harris APRN-DRY HOUSE OPERATOR [address] [place] [address] documented as of this encounter Procedures Procedure Name Priority Date/Time Associated Diagnosis Comments MR CERVICAL SPINE WO CONTRAST 12/19/2023 7:59 AM EST documented in this encounter Results * MR cervical spine wo contrast (12/19/2023 7:59 AM EST) Anatomical Region Laterality Modality Spine, C-spine Magnetic Resonan ce 12/19/2023 7:59 AM EST Narrative 12/19/2023 8:02 [place] [address] Magnetic Resonance Report Signed Patient: MARY FUENTES MR#: [id number] : 1970 Acct:[id number] Age/Sex: 53 / F ADM Date: 12/19/23 Loc: MRI Attending Dr: Ace Ahumada M.D. Ordering Physician: Ace Ahumada M.D. Date of Service: 12/19/23 Procedure(s): MR cervical spine wo con Accession Number(s): [id number] cc: Ace Ahumada M.D.; Isatu GÓMEZ [place] [address] Patient Name: MARY FUENTES MRN: [id number] date: 1970 Sex: F Assigned Patient Location: MRI Current Patient Location: MRI Accession/Order Number: [id number] Exam Date: 12/19/2023 07:03 Report Date: 12/19/2023 [...] Signed By: 12/19/23 0802 DD/ 0759 TD/TT: General Car Supervisor Yard: Procedure Note Radiology, Radiologist, MD - 12/19/2023 [place] [address] Magnetic Resonance Report Signed Patient: MARY FUENTES DMR#: [id number] : 1970Acct:[id number] Age/Sex: 53 / FADM Date: 12/19/23 Loc: MRI Attending Dr: Ace Ahumada M.D. Ordering Physician: Ace Ahumada M.D. Date of Service: 12/19/23 Procedure(s): MR cervical spine wo con Accession Number(s): [id number] cc: Ace Ahumada M.D.; Isatu GÓMEZ [place] [id number] Patient Name: MARY FUENTES MRN: [id number] date: 1970 Sex: F Assigned Patient Location: MRI Current Patient Location: MRI Accession/Order Number: [id number] Exam Date: 12/19/2023 07:03 Report Date: 12/19/2023 07:59 At the request of: KELLY RANJITH Procedure: MR cervical spine wo con MR [...] M.D. Signed By:12/19/23 0802 DD/ 0759 TD/TT: General Car Supervisor Yard: us Generic External Data Provider IMG MRI PROCEDURE S Final Result documented in this encounter Visit Diagnoses Not on filedocumented in this encounter Care Teams Sign Fabricator Relationship Specialty Start Date End Date Eliceo Gómez DO [address] [place] [id number] PCP - General Family Medicine 04/04/23 Eliceo Gómez DO [address] [place] [address] PCP - [facility] 05/06/23 Beata Hernandez PA [address] [place] [address] Dietitian Nutrition 08/08/23 05/16/24 Juan Damico DO [address] [place] [address] Referring Physician Obstetrics and Gynecology 05/20/24 documented as of this encounter
--- OUTSIDE RECORDS SUMMARY | 2025-07-30 07:42 | XMS_ITS | Encounter Summary ---
Author Organization [facility] Address [address] [place] [address] Care Team Providers Care Design Maintenance Engineer Name Role Phone Eliceo Gómez DO Primary Care Provider [phone] Eliceo Gómez DO Unavailable [phone] Beata Hernandez Unavailable Juan Damico DO Unavailable [phone] Encounter Details Date Type Department Care Team (Late st Contact Info) Description 12/14/2023 Orders Only [facility] [place] [facility] [address] [place] [address] A, Unknown Practice [address] [place] [address] Breast cancer screening by mammogram Social History Tobacco Use Types Packs/Day Years [...] you attend chur or presybeterian services? Never 06/04/2025 Do you belong to [...] Recorded Patient Health Questionnaire-2 Score 0 06/24/2025 [facility] - Occupational [...] living in a intermediate (including now)? No 06/04/2025 Comments No Sex [...] drink containing alcohol? Never 06/24/2025 8:59 AM CAROLEET Nida Toro MA Q2: How many drinks [...] things Not at all 06/24/2025 8:59 AM Nida Terry MA Feeling down, depressed, or hopeless Not at all 06/24/2025 8:59 AM Nida Terry MA Patient Health Questionnaire -2 Score 0 06/24/2025 8:59 AM Nida Terry MA * Question Answer Date of Assessment Author Trouble falling or staying asleep, or sleeping too much Not at all 01/20/2025 1:00 PM EDT Daisy Thomson MA Feeling tired or having mick le energy Not at all 01/20/2025 1:00 PM EDT Daisy Thomson MA Poor appetite or overeating Not at all 01/20/2025 1: 00 PM CAROLEET Daisy Thomson MA Feeling bad about yourself - or that you are a failure or have let yourself or your family down Not at all 01/20/2025 1:00 PM EDT Daisy Thomson MA Trouble concentrating on things, such as reading the newspaper or watching television Not at all 01/20/2025 1:00 PM CAROLEET Daisy Thomson MA Moving or speaking so slowly that other people could have noticed? Or the opposite - being so fidgety or restless that you have been moving around a lot more than usual. Not at all 01/20/2025 1:00 PM CAROLEET Daisy Thomson MA Thoughts that you would be better off or hurting yourself in some way Not at all 01/20/2025 1:00 PM EDT Daisy Thomson MA Patient Health Questionnaire -9 Score 0 01/20/2025 1:00 PM EDT Daisy Thomson ALYX documented as of this encounter Plan of Treatment Upcoming Encounters Date Type Department Care Team (Late st Contact Info) Description 08/27/2025 3:50 PM EDT Office Visit [facility] [address] [place] [address] Adriana Cruz MD [address] [place] [address] 11/20/2025 8:30 AM EST Office Visit [facility] [address] [place] [address] Nelsy Harris APRN-CNP [address] [place] [address] Scheduled Orders Name Type Priority Associated Diagnoses Orde r Schedule Bilateral screening mammogram with tomosynthesis Imaging Routine Breast cancer screening by mammogram Expected: 07/16/2026, Expires: 09/15/2026 documented as of this encounter Procedures Procedure [...] t documented in this encounter Visit Diagnoses Diagnosis Breast cancer screening by mammogram documented in this encounter Care Teams Design Maintenance Engineer Relationship Specialty Start Date End Date Eliceo Gómez DO [address] [place] [address] PCP - General Family Medicine 04/04/23 Eliceo Gómez DO [address] [place] [address] PCP - [facility] 05/06/23 Beata Hernandez PA [address] [place] [address] Dietitian Nutrition 08/08/23 05/16/24 Juan Damico DO [address] [facility] [address] [place] [address] Referring Physician Obstetrics and Gynecology 05/20/24 documented as of this encounter
--- OUTSIDE RECORDS SUMMARY | 2025-07-30 07:42 | XMS_ITS | Clinical Summary ---
Author Organization [facility] Address [address] [place] [address] [place] [address] Care Team Providers Care Grinder Operator Automatic Name Role Phone Shannon Gómez DO Primary Care Provider [phone] Allergies Active Allergy Reactions Criticality Noted Date [...] 025 Active omeprazole 40 MG Cap capsuleIndicati ons:Ste. Genevieve grade D esophagitis TAKE 1 CAPSULE BY [...] ZOSTER (SHINGLES) VACCINE (2 of 2) 05/31/20242023 MAMMOGRAM SCREENING DISCUSSION 10/31/2024 1 01/01/2023, 09/14/2022, 06/28/2021, Additional history exists COVID-19 VACCINE ( - 2024-2 6 season) 2025 11/24/2021, 05/11/2021, 04/20/2021 INFLUENZA VACCINE (#1) 2025 , 12/21/2023, 08/17/2022, Additional history exists TETANUS 06/22/2030 06/22/2020 TDAP (ADULT) Completed 06/22/2020 HEP B VACCINE Completed 05/21/2024, 0705/2008, 04/11/2008 Insurance Medicaid Medicare UHC HMO Care Teams Grinder Operator Automatic Relationship Specialty Start Date End Date Shannon Gómez DO [address] [facility] [address] [place] [address] PCP - General Family Medicine 11/14/23
--- OUTSIDE RECORDS SUMMARY | 2025-07-30 07:42 | XMS_ITS | Encounter Summary ---
Author Organization [facility] Address [address] [facility] [address] Care Team Providers Care Concrete Pavement Installer Name Role Phone Eliceo Gómez DO Primary Care Provider [phone] Eliceo Gómez DO Unavailable [phone] Beata Hernandez Unavailable Juan Damico DO Unavailable [phone] Encounter Details Date Type Department Care Team (Late st Contact Info) Description 11/24/2023 Abstract [facility] [place] [facility] [address] [facility] [address] [place] [address] Eliceo Gómez DO [address] [facility] [address] [place] [address] Social History Tobacco Use Types Packs/Day Years [...] 0 10/03/2023 [facility] Occupat ional Health - [...] [address] [place] [address] Adriana Cruz MD [address] [place] [address] 11/20/2025 8:30 AM EST Office Visit [facility] [address] [place] [address] Nelsy Harris, QUALITY CONTROL INSPECTOR-SHEARING SHED HAND [address] [place] [address] documented as of this encounter Visit Diagnoses Not on filedocumented in this encounter Care Teams Concrete Pavement Installer Relationship Specialty Start Date End Date Eliceo Gómez DO [address] [place] [address] PCP - General Family Medicine 04/04/23 Eliceo Gómez DO [address] [place] [address] PCP - [facility] 05/06/23 Beata Hernandez PA [address] [place] [address] Dietitian Nutrition 08/08/23 05/16/24 Juan Damico DO [address] [place] [address] Referring Physician Obstetrics and Gynecology 05/20/24 documented as of this encounter
--- OUTSIDE RECORDS SUMMARY | 2025-07-30 07:42 | XMS_ITS | Encounter Summary ---
Author Organization [facility] Address [address] [facility] [place] [address] Care Team Providers Care Stenotype Operator Name Role Phone Eliceo Gómez DO Primary Care Provider [phone] Eliceo Gómez DO Unavailable [phone] Juan Damico DO Unavailable [phone] Encounter Details Date Type Department Care Team (Late st Contact Info) Description 04/02/2025 Abstract [facility] [place] [facility] [address] [facility] [address] [place] [address] Eliceo Gómez DO [address] [facility] [address] [place] [address] Social History Tobacco Use Types [...] attend chur ch or protestant services? Never 05/01/2024 Do you [...] Recorded Patient Health Questionnaire-2 Score 0 01/20/2025 [facility] [place] of Occupat ional Health - Occupational Stress [...] Dermatology [address] [place] [address] Adriana Cruz MD [address] [place] [address] 11/20/2025 8:30 AM EST Office Visit [facility] [address] [place] [address] Nelsy Harris, ASSOCIATE SOFTWARE APPLICATION ENGINEER-AIR LIFT OPERATOR [address] [place] [address] documented as of this encounter Visit Diagnoses Not on filedocumented in this encounter Additional Health Concerns Assessment Noted Time PHQ-9 Depression Total Score: 0 01/21/20 25 1:00 PM EDT documented as of this encounter Care Teams Stenotype Operator Relationship Specialty Start Date End Date Eliceo Gómez DO [address] [place] [address] PCP - General Family Medicine 04/04/23 Eliceo Gómez DO [address] [place] [address] PCP - [facility] 05/06/23 Juan Damico DO [address] [place] [address] Referring Physician Obstetrics and Gynecology 05/20/24 documented as of this encounter
--- OUTSIDE RECORDS SUMMARY | 2025-07-30 07:42 | XMS_ITS | Encounter Summary ---
Author Organization [facility] Address [address] [facility] [place] [address] Care Team Providers Care Sand Plant Attendant Name Role Phone Eliceo Gómez DO Primary Care Provider Eliceo Gómez DO Unavailable [phone] Beata Hernandez Unavailable Juan Damico DO Unavailable [phone] Encounter Details Date Type Department Care Team (Late st Contact Info) Description 01/11/2024 Abstract [facility] [place] [facility] [address] [facility] [address] [place] [address] Eliceo Gómez DO [address] [facility] [address] [place] [address] Social History Tobacco Use Types Packs/Day Years [...] Recorded Patient Health Questionnaire-2 Score 0 10/03/2023 [facility] Occupat ional Health - [...] [address] [place] [address] Adriana Cruz MD [address] [place] [address] 11/20/2025 8:30 AM EST Office Visit [facility] [address] [place] [address] Nelsy Harris, ARTIFICIAL FLOWERS SUPERVISOR-MACHINE MOVER [address] [place] [address] documented as of this encounter Visit Diagnoses Not on filedocumented in this encounter Care Teams Sand Plant Attendant Relationship Specialty Start Date End Date Eliceo Gómez DO [address] [place] [address] PCP - General Family Medicine 04/04/23 Eliceo Gómez DO [address] [place] [address] PCP - [facility] 05/06/23 Beata Hernandez PA [address] [place] [address] Dietitian Nutrition 08/08/23 05/16/24 Juan Damico DO [address] [place] [address] Referring Physician Obstetrics and Gynecology 05/20/24 documented as of this encounter
--- OUTSIDE RECORDS SUMMARY | 2025-07-30 07:42 | XMS_ITS | Encounter Summary ---
Author Organization [facility] Address [address] [facility] [place] [address] Care Team Providers Care Development Technologist Name Role Phone Eliceo Gómez DO Primary Care Provider [phone] Eliceo Gómez DO Unavailable [phone] Juan Damico DO Unavailable [phone] Encounter Details Date Type Department Care Team (Late st Contact Info) Description 09/16/2024 Abstract [facility] [place] [facility] [address] [facility] [address] [place] [address] Eliceo Gómez DO [address] [facility] [address] [place], [place] [address] Social History Tobacco Use Types Packs/Day Years [...] often do you attend chur ch or mormonism services? Never 05/01/2024 Do you belong to [...] Recorded Patient Health Questionnaire-2 Score 0 07/11/2024 [facility] [place] of Occupat ional Health - Occupational Stress [...] time in the past [address] [facility], were you homeless or living in [...] Dermatology [address] [place] [address] Adriana Cruz MD [address] [place] [address] 11/20/2025 8:30 AM EST Office Visit [facility] [address] [place] [address] Nelsy Harris, ROVING COURT REPORTER-MAINTENANCE DISPATCHER [address] [place] [address] documented as of this encounter Visit Diagnoses Not on filedocumented in this encounter Care Teams Development Technologist Relationship Specialty Start Date End Date Eliceo Gómez DO [address] [place] [address] PCP - General Family Medicine 04/04/23 Eliceo Gómez DO [address] [place] [address] PCP - [facility] 05/06/23 Juan Damico DO [address] [place] [address] Referring Physician Obstetrics and Gynecology 05/20/24 documented as of this encounter
--- OUTSIDE RECORDS SUMMARY | 2025-07-30 07:42 | XMS_ITS | Encounter Summary ---
Author Organization [facility] Address [address] [facility] [address] Care Team Providers Care Photo Finisher Name Role Phone Eliceo Gómez DO Primary Care Provider Eliceo Gómez DO Unavailable [phone] Beata Hernandez Unavailable Juan Damico DO Unavailable [phone] Encounter Details Date Type Department Care Team (Late st Contact Info) Description 12/25/2023 Abstract [facility] [place] [facility] [address] [facility] [address] [place] [address] Eliceo Gómez DO [address] [place] [address] Social History Tobacco Use Types Packs/Day Years [...] you attend chur or judaism services? Never 04/14/2023 Do you [...] 10/03/2023 [facility] of Occupat ional Health [...] [address] [place] [address] Adriana Cruz MD [address] [place] [address] 11/20/2025 8:30 AM EST Office Visit [facility] [address] [place] [address] Nelsy Harris, REGULATORY ASSISTANT-SURETY BOND AGENT [address] [place] [address] documented as of this encounter Visit Diagnoses Not on filedocumented in this encounter Care Teams Photo Finisher Relationship Specialty Start Date End Date Eliceo Gómez DO [address] [place] [address] PCP - General Family Medicine 04/04/23 Eliceo Gómez DO [address] [place] [address] PCP - [facility] 05/06/23 Beata Hernandez PA [address] [place] [address] Dietitian Nutrition 08/08/23 05/16/24 Juan Damico DO [address] [place] [address] Referring Physician Obstetrics and Gynecology 05/20/24 documented as of this encounter
--- OUTSIDE RECORDS SUMMARY | 2025-07-30 07:42 | XMS_ITS | Encounter Summary ---
Author Organization [facility] Address [address] [place] [address] Care Team Providers Care Clamper Name Role Phone Eliceo Gómez DO Primary Care Provider [phone] Eliceo Gómez DO Unavailable [phone] Beata Hernandez Unavailable Juan Damico DO Unavailable [phone] Encounter Details Date Type Department Care Team [...] Questionnaire-2 Score 0 10/03/2023 [facility] - [...] Dermatology [address] [place] [address] Adriana Cruz MD [address] [place] [address] 11/20/2025 8:30 AM EST Office Visit [facility] [address] [place] [address] Nelsy Harris APRN-ROAD PATCHER [address] [place] [address] documented as of this encounter Procedures Procedure Name Priority Date/Time Associated Diagnosis Comments XR LUMBAR SPINE 6V W BENDING 12/14/2023 1:52 PM EST documented in this encounter Results * XR LUMBAR SPINE 6V W BENDING (12/14/2023 1:52 PM EST) Anatomical Region Laterality Modality Other 12/14/2023 1:52 PM EST Narrative 12/14/2023 1:54 PM EST [place] [id number] XRay Report Signed Patient: MARY FUENTES MR#: [id number] : 1970 Acct:[id number] Age/Sex: 53 / F ADM Date: 12/14/23 Loc: RAD Attending Dr: Ace Ahumada M.D. Ordering Physician: Ace Ahumada M.D. Date of Service: 12/14/23 Procedure(s): XR lumbar spine 6V w bending Accession Number(s): [id number] cc: Ace Ahumada M.D.; Isatu GÓMEZ [place] [address] Patient Name: MARY FUENTES MRN: [id number] date: 1970 Sex: F Assigned Patient Location: [facility] Current Patient Location: [facility] Accession/Order Number: [id number] Exam Date: 12/14/2023 13:00 Report Date: 12/14/2023 [...] Signed By: 12/14/23 1351 DD/ 1352 TD/TT: Remote Control Mirror Installer: Procedure Note Radiology, Radiologist, - 12/14/2023 The [place] [id number] XRay Report Signed Patient: MARY FUENTES DMR#: [id number] : 1970Acct:[id number] Age/Sex: 53 / FADM Date: 12/14/23 Loc: RAD Attending Dr: Ace Ahumada M.D. Ordering Physician: Ace Ahumada M.D. Date of Service: 12/14/23 Procedure(s): XR lumbar spine 6V w bending Accession Number(s): [id number] cc: Ace Ahumada M.D.; Isatu GÓMEZ The [address] [address] Patient Name: MARY FUENTES MRN: [facility]:[id number] date: 1970 Sex: F Assigned Patient Location: [facility] Current Patient Location: [facility] Accession/Order Number: [id number] Exam Date: 12/14/2023 13:00 Report Date: 12/14/2023 [...] Nicki Dacosta M.D. Signed By:12/14/23 1354 DD/ 51 TD/TT: Remote Control Mirror Installer: us Generic External Data Provider [facility] Final Result documented in this encounter Visit Diagnoses Not on filedocumented in this encounter Care Teams Clamper Relationship Specialty Start Date End Date Eliceo Gómez DO [address] [place] [address] PCP - General Family Medicine 04/04/23 Eliceo Gómez DO [address] [place] [address] PCP - [facility] 05/06/23 Beata Hernandez PA [address] [place] [address] Dietitian Nutrition 08/08/23 05/16/24 Juan Damico DO [address] [place] [address] Referring Physician Obstetrics and Gynecology 05/20/24 documented as of this encounter
--- OUTSIDE RECORDS SUMMARY | 2025-07-30 07:42 | XMS_ITS | Encounter Summary ---
Author Organization [employer] Address [id number] [address] [place] [address] Care Team Providers Care Pool Table Mechanic Name Role Phone Dalia Morales DO, George R Primary Care Provider + Reason for Visit * Reason Comments Med Refill Encounter Details Date Type Department Care Team (Late st Contact Info) Description 01/09/2021 Refill [facility]rology [address] [place] [address] Pauline Christensen MD [address] [place] [address] [address], [address] [place] [address] Chronic mixed headache syndrome Social [...] Info) Description 08/18/2025 9:15 AM EDT Appointment [facility] [address] [place] [address] 08/18/2025 9:45 AM EDT Appointment [facility] [address] [place] [address] 08/19/2025 3:30 PM EDT [facility] A Department of [address] [place] [address] Pauline Christensen MD [address] [place] [address] 101, [address], [address] [place] [address] 10/08/2025 9:15 AM EST Appointment [facility] - Neurophysiology [address] [place] [address] [address] [place] [address] 10/14/2025 8:00 AM EST Office Visit [facility] Neurology, A Department of [address], [address] [place] [address] Justin Bhat MD [address] [place] [address] 101, [address], [address] [place] [address] documented as of this encounter Visit Diagnoses Diagnosis Chronic mixed headache syndrome Other headache syndromes documented in this encounter Care Teams Pool Table Mechanic Relationship Specialty Start Date End Date Eliceo Gómez Jr., DO [address] [facility], [id number] [place] [address] PCP - General Family Medicine 12/11/19 Jenna Butlre [address] Consulting Physician Behavioral Health 12/20/23 documented as of this encounter
--- OUTSIDE RECORDS SUMMARY | 2025-07-30 07:42 | XMS_ITS | Encounter Summary ---
Author Organization [employer] Address [id number] [address] [place] [address] Care Team Providers Care Restaurant Host Name Role Phone Dalia Morales DO, George R Primary Care Provider + Encounter Details Date Type Department Care Team (Late st Contact Info) Description 01/04/2021 Orders Only [facility] Pul[facility]/Sleep Medicine [address] [place] [address] Daisy Ley LPN Asthma, unspecified asthma [...] Info) Description 08/18/2025 9:15 AM EDT Appointment [facility] - MRI Imaging [address] [facility] [place] [address] 08/18/2025 9:45 AM EDT Appointment [facility] - MRI Imaging [address] [place] [address] 08/19/2025 3:30 PM EDT Office Visit [facility] Neurology, A Department of [address] [place] [address] Pauline Christensen MD [address] [place] [address] 101, [address] [place] [address] 10/08/2025 9:15 AM EST Appointment [facility] - Neurophysiology [address] [place] [address] [address] [place] [address] 10/14/2025 8:00 AM EST Office Visit [facility], A Department of [address] [place] [address] Justin Bhat MD [address] [place] [address] 101, [address], [address] [place] [address] documented as of this encounter Procedures Procedure [...] Alpha 1 antitrypsin targeting genotyping (12/25/2020) 12/25/2020 us Gwendolyn L Kregel EXPERIENCE SPECIALIST-ONLINE ACTIVIST LAB BLOOD ORDERABLES Fi nal Result [facility] * Immunoglobulins (12/25/2020) 12/25/2020 us Gwendolyn L Kregel EXPERIENCE SPECIALIST-ONLINE ACTIVIST LAB BLOOD ORDERABLES Fi nal Result [facility] * Respiratory allergy panel (12/25/2020) Blood Venous blood / Unknown 12/25/2020 us Gwendolyn L Kregel EXPERIENCE SPECIALIST-ONLINE ACTIVIST LAB BLOOD ORDERABLES Fi nal Result Performing Organization Address City/[facility] Co de Phone Number [facility] documented in this encounter Visit Diagnoses Diagnosis Asthma, unspecified asthma severity, unspecified whether complicated, unspecified whether persistent documented in this encounter Care Teams Restaurant Host Relationship Specialty Start Date End Date Eliceo Gómez Jr., [address] [place] [address], [address], [place] [address] PCP - General Family Medicine 12/11/19 Jenna Butler [address] Consulting Physician Behavioral Health 12/20/23 documented as of this encounter
--- OUTSIDE RECORDS SUMMARY | 2025-07-30 07:42 | XMS_ITS | Encounter Summary ---
Author Organization [facility] Address [address] [place] [address] Care Team Providers Care Choral Director Name Role Phone Eliceo Gómez DO Primary Care Provider [phone] Eliceo Gómez DO Unavailable [phone] Beata Hernandez Unavailable Juan Damico DO Unavailable [phone] Encounter Details Date Type Department Care [...] 10/03/2023 [facility] - Occupational [...] Dermatology [address] [place] [address] Adriana Cruz MD [address] [place] [address] 11/20/2025 8:30 AM EST Office Visit [facility] [address] [place] [address] Nelsy Harris APRN-COMMERCIAL SALES DIRECTOR [address] [place] [address] documented as of this encounter Procedures Procedure Name Priority Date/Time Associated Diagnosis Comments XR SACRUM COCCYX 2+ VIEWS 12/14/2023 1:52 PM EST documented in this encounter Results * XR sacrum coccyx 2+ views (12/14/2023 1:52 PM EST) Anatomical Region Laterality Modality Sacrum, Coccyx Radiographic Ira ging 12/14/2023 1:52 PM EST Narrative 12/14/2023 1:54 PM EST [address] [address] XRay Report Signed Patient: MARY FUENTES MR#: [id number] : 1970 Acct:[id number] Age/Sex: 53 / F ADM Date: 12/14/23 Loc: RAD Attending Dr: Ace Ahumada M.D. Ordering Physician: Ace Ahumada M.D. Date of Service: 12/14/23 Procedure(s): XR sacrum coccyx min 2V Accession Number(s): [id number] cc: Ace Ahumada M.D.; Isatu GÓMEZ [place] [address] Patient Name: MARY FUENTES MRN: [id number] date: 1970 Sex: F Assigned Patient Location: [facility] Current Patient Location: [facility] Accession/Order Number: [id number] Exam Date: 12/14/2023 13:00 Report Date: 12/14/2023 [...] By: Nicki Dacosta M.D. Signed By: 12/14/23 135 DD/ 51 TD/TT: Relief Driller: Procedure Note Radiology, Radiologist, - 12/14/2023 [facility] [place] [id number] XRay Report Signed Patient: MARY FUENTES DMR#: [id number] : 1970Acct:[id number] Age/Sex: 53 / FADM Date: 12/14/23 Loc: RAD Attending Dr: Ace Ahumada M.D. Ordering Physician: Ace Ahumada M.D. Date of Service: 12/14/23 Procedure(s): XR sacrum coccyx min 2V Accession Number(s): [id number] cc: Ace Ahumada M.D.; Isatu GÓMEZ [place] [id number] Patient Name: MARY FUENTES MRN: [id number] date: 1970 Sex: F Assigned Patient Location: [facility] Current Patient Location: [facility] Accession/Order Number: [id number] Exam Date: 12/14/2023 13:00 Report Date: 12/14/2023 [...] M.D. Signed By:12/14/23 135 DD/ 1352 TD/TT: Relief Driller: us Generic External Data Provider IMG XR PROCEDURES Final Result documented in this encounter Visit Diagnoses Not on filedocumented in this encounter Care Teams Choral Director Relationship Specialty Start Date End Date Eliceo Gómez DO [address] [place] [address] PCP - General Family Medicine 04/04/23 Eliceo Gómez DO [address] [place] [address] PCP - [facility] 05/06/23 Beata Hernandez PA [address] [place] [address] Dietitian Nutrition 08/08/23 05/16/24 Juan Damico DO [address] [place] [address] Referring Physician Obstetrics and Gynecology 05/20/24 documented as of this encounter
--- OUTSIDE RECORDS SUMMARY | 2025-07-30 07:43 | XMS_ITS | Encounter Summary ---
Author Organization [facility] Address [id number] [address] 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 Nursing roaster supervisor is aware and in process of contacting the path lab for feedback Patient's voicemail indicates that she is still having stomach issues Left a detailed message asking her to call with feedback * Telephone Encounter - Re Mcghee RN - 07/28/2025 12:51 PM EDT Patient calls, she did not go to work today Experiencing early satiety, pain under ribcage,upset stomach, history of gastroparesis She reports that she has no appetite She is taking Omeprazole Pepcid is taken three nights a week She is also taking Imodium and colestipol as prescribed She states that she is having 4-6 episodes of diarrhea daily * Telephone Encounter - Noman Mayo MD - 07/28/2025 12:51 PM EDT See if she is on a low residue diet, and would want to get an abdominal x-ray to see what her bowelstatus is, and whether there is any stomach distention. Otherwise we could call in short term metoclopramide/Reglan if she wants to try it for couple weeks until we can get her in to the office with either myself or 1 of the early available DANI[place]'s. See if she is taking the colestipol twice a day?. Order for abdominal x-ray placed. documented in this encounter Plan of Treatment Upcoming Encounters Date Type Department Care Team (Late st Contact Info) Description 08/18/2025 9:15 AM EDT Appointment [facility] - MRI Imaging [address] [place] [address] 08/18/2025 9:45 AM EDT Appointment [facility] - MRI Imaging [address] [place] [address] 08/19/2025 3:30 PM EDT Office Visit [facility] Neurology, A Department of [address] [place] [address] Pauline Christensen MD [address] [place] [address] 101, [address], [address] [place] [address] 10/08/2025 9:15 AM EST Appointment [facility] - Neurophysiology [address] [place] [address] [address] [place] [address] 10/14/2025 8:00 AM EST Office Visit [facility] Neurology, A Department of [address], [address] [place] [address] Justin Bhat MD [address] [place] [address] 101, [address], [address] [place] [address] documented as of this encounter Visit Diagnoses Not on filedocumented in this encounter Additional Health Concerns Assessment Noted Time PHQ-9 Depression Total Score: 0 07/15/20 25 9:02 AM EDT documented as of this encounter Care Teams Scientific Publications Editor Relationship Specialty Start Date End Date Eliceo Gómez Jr., DO [address] [place] [address], [address] [place] [address] PCP - General Family Medicine 12/11/19 Jenna Butler [address] Consulting Physician Behavioral Health 12/20/23 documented as of this encounter
--- OUTSIDE RECORDS SUMMARY | 2025-07-30 07:43 | XMS_ITS | Encounter Summary ---
Author Organization [employer] Address [id number] [address] [place] [address] Care Team Providers Care Network Management Specialist Name Role Phone Dalia Morales DO, George R Primary Care Provider + Encounter Details Date Type Department Care Team (Late Contact Info) Description 02/12/2021 Orders Only [facility] [address] [place] [address] External, Scanning Provider Social History [...] Department Care Team (Late Contact Info) Description 08/18/2025 9:15 AM EDT Appointment [facility] - MRI Imaging [address] [place] [address] 08/18/2025 9:45 AM EDT Appointment [facility] - MRI Imaging [address] [place] [address] 08/19/2025 3:30 PM EDT Office Visit [facility] Neurology, A Department of [address] [place] [address] Pauline Christensen MD [address] [place] [address] 101, [address] [place] [address] 10/08/2025 9:15 AM EST Appointment [facility] - Neurophysiology [address] [place] [address] [address] [place] [address] 10/14/2025 8:00 AM EST Office Visit [facility] Neurology, A Department of [address] [place] [address] Justin Bhat MD [address] [place] [address] 101, [address], [address] [place] [address] documented as of this encounter Procedures Procedure Name Priority Date/Time Associated Diagnosis Comments MULTIPLE LABS Routine 01/21/2021 documented in this encounter Results * Multiple labs (01/21/2021) us Scanning Provider External [facility] Final Result MANUALLY TRANSCRIBED RESULTS documented in this encounter Visit Diagnoses Not on filedocumented in this encounter Care Teams Network Management Specialist Relationship Specialty Start Date End Date Eliceo Gómez Jr., DO [address] [place] [address], [address] [place] [address] PCP - General Family Medicine 12/11/19 Jenna Butler [address] [facility] [address] Consulting Physician Behavioral Health 12/20/23 documented as of this encounter
--- OUTSIDE RECORDS SUMMARY | 2025-07-30 07:43 | XMS_ITS | Encounter Summary ---
Author Organization [facility] Address [address] [place] [address] Care Team Providers Care Home Care Companion Name Role Phone Eliceo Gómez DO Primary Care Provider Eliceo Gómez DO Unavailable [phone] Beata Hernandez Unavailable Juan Damico DO Unavailable [phone] Encounter Details Date Type Department Care Team (Late st Contact Info) Description 11/13/2023 Orders Only [facility] [place] [facility] [address] [place] [address] A, Unknown Practice [address] [place] [address] Social History Tobacco Use Types [...] [address] [place] [address] Adriana Cruz MD [address] [place] [address] 11/20/2025 8:30 AM EST Office Visit [facility] [address] [place] [address] Nelsy Harris, ADMINISTRATIVE SERVICES SPECIALIST-SPIRAL TUBE WINDER [address] [place] [address] documented as of this encounter [...] on filedocumented in this encounter Care Teams Home Care Companion Relationship Specialty Start Date End Date Eliceo Gómez DO [address] [place] [address] PCP - General Family Medicine 04/04/23 Eliceo Gómez DO [address] [place] [address] PCP - [facility] 05/06/23 Beata Hernandez PA [address] [place] [address] Dietitian Nutrition 08/08/23 05/16/24 Juan Damico DO [address] [place] [address] Referring Physician Obstetrics and Gynecology 05/20/24 documented as of this encounter
--- OUTSIDE RECORDS SUMMARY | 2025-07-30 07:43 | XMS_ITS | Encounter Summary ---
Author Organization [facility] Address [address] [facility] [place] [address] Care Team Providers Care Commercial Construction Estimator Name Role Phone Eliceo Gómez DO Primary Care Provider [phone] Eliceo Gómez DO Unavailable [phone] Juan Damico DO Unavailable [phone] Encounter Details Date Type Department Care Team (Late st Contact Info) Description 10/24/2024 Abstract [facility] [place] [facility] [address] [facility] [address] [place] [address] Eliceo Gómez DO [address] [facility] [address] [place], [place] [address] Social History Tobacco Use Types Packs/Day Years [...] often do you attend chur ch or anabaptist services? Never 05/01/2024 Do you belong to [...] Recorded Patient Health Questionnaire-2 Score 0 07/11/2024 [facility] [place] of Occupat ional Health - Occupational Stress [...] Dermatology [address] [place] [address] Adriana Cruz MD [address] [place] [address] 11/20/2025 8:30 AM EST Office Visit [facility] [address] [place] [address] Nelsy Harris, NOVELTY TWISTER OPERATOR-PRECISION INSPECTOR [address] [place] [address] documented as of this encounter Visit Diagnoses Not on filedocumented in this encounter Care Teams Commercial Construction Estimator Relationship Specialty Start Date End Date Eliceo Gómez DO [address] [place] [address] PCP - General Family Medicine 04/04/23 Eliceo Gómez DO [address] [place] [address] PCP - [facility] 05/06/23 Juan Damico DO [address] [place] [address] Referring Physician Obstetrics and Gynecology 05/20/24 documented as of this encounter
--- OUTSIDE RECORDS SUMMARY | 2025-07-30 07:43 | XMS_ITS | Encounter Summary ---
Author Organization [facility] Address [address] [place] [address] Care Team Providers Care Door Slinger Name Role Phone Eliceo Gómez DO Primary Care Provider [phone] Eliceo Gómez DO Unavailable [phone] Beata Hernandez Unavailable Juan Damico DO Unavailable [phone] Encounter Details Date Type Department Care Team [...] attend chur ch or adventism services? Never 04/14/2023 Do you belong to [...] Score 0 07/06/2023 [facility] - Occupational Stress Questionnaire Answer Date [...] Dermatology [address] [place] [address] Adriana Cruz MD [address] [place] [address] 11/20/2025 8:30 AM EST Office Visit [facility] [address] [place] [address] Nelsy Harris, SKIN GRADER-BENCH MECHANIC [address] [place] [address] documented as of this encounter Procedures Procedure Name Priority Date/Time Associated Diagnosis Comments CT ANKLE RT WO CON 08/05/2023 8: 01 PM EDT documented in this encounter Results * CT ANKLE RT WO CON (08/05/2023 8:01 PM EDT) Anatomical Region Laterality Modality Other 08/05/2023 8:01 PM EDT Narrative 08/05/2023 8:01 PM EDT [address] [address] [address] Scan Report Signed Patient: MARY FUENTES MR#: [id number] : 1970 Acct:[id number] Age/Sex: 53 / F ADM Date: 08/04/23 Loc: CT Attending Dr: Niecy Serna Ordering Physician: Niecy Serna Date of Service: 08/04/23 Procedure(s): CT ankle RT wo con Accession Number(s): [id number] cc: Isatu GÓMEZ [place] [address] Patient Name: MARY FUENTES MRN: [id number] date: 1970 Sex: F Assigned Patient Location: CT Current Patient Location: Accession/Order Number: [id number] Exam Date: 08/04/2023 12:43 Report Date: 08/05/2023 20:01 At the request of: NIECY SERNA Procedure: CT ankle RT wo con EXAM: CT ankle RT wo con, [id number] 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 TECHNIQUE: Helical [...] Yang Signed By: 08/05/232003 DD/ 00 TD/TT: Jewel Setter: Procedure Note Radiology, Radiologist, MD - 08/05/2023 [place] [address] CT Scan Report Signed Patient: MARY FUENTES [facility]#: [id number] : 1970Acct:[id number] Age/Sex: 53 / FADM Date: 08/04/23 Loc: CT Attending Dr: Niecy Serna Ordering Physician: Niecy Serna Date of Service: 08/04/23 Procedure(s): CT ankle RT wo con Accession Number(s): [id number] cc: Isatu GÓMEZ [address] [address] Patient Name: MARY FUENTES MRN: [id number] date: 1970 Sex: F Assigned Patient Location: CT Current Patient Location: Accession/Order Number: [id number] Exam Date: 08/04/2023 12:43 Report Date: 08/05/2023 20:01 At the request of: NIECY SERNA Procedure: CT ankle RT wo con EXAM: CT ankle RT wo con, [id number] 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 TECHNIQUE: Helical [...] Mell Yang Signed By:08/05/232003 DD/ 00 TD/TT: Jewel Setter: us Generic External Data Provider [facility] Final Result documented in this encounter Visit Diagnoses Not on filedocumented in this encounter Care Teams Door Slinger Relationship Specialty Start Date End Date Eliceo Gómez DO [address] [place] [address] PCP - General Family Medicine 04/04/23 Eliceo Gómez DO [address] [place] [address] PCP - [facility] 05/06/23 Beata Hernandez PA [address] [place] [address] Dietitian Nutrition 08/08/23 05/16/24 Juan Damico DO [address] [place] [address] Referring Physician Obstetrics and Gynecology 05/20/24 documented as of this encounter
--- OUTSIDE RECORDS SUMMARY | 2025-07-30 07:43 | XMS_ITS | Encounter Summary ---
Author Organization [facility] Address [address] [facility] [place] [address] Care Team Providers Care Lottery Manager Name Role Phone Eliceo Gómez DO Primary Care Provider [phone] Eliceo Gómez DO Unavailable [phone] Juan Damico DO Unavailable [phone] Encounter Details Date Type Department Care Team (Late st Contact Info) Description 03/17/2025 Abstract [facility] [place] [facility] [address] [facility] [address] [place] [address] Eliceo Gómez DO [address] [facility] [address] [place], [place] [id number] Social History Tobacco Use Types Packs/Day Years [...] Recorded Patient Health Questionnaire-2 Score 0 01/20/2025 [facility] of Occupat ional Health - Occupational [...] Dermatology [address] [place] [address] Adriana Cruz MD [address] [place] [address] 11/20/2025 8:30 AM EST Office Visit [facility] [address] [place] [address] Nelsy Harris, NUTRITIONIST PUBLIC HEALTH-CHILDREN'S ENTERTAINER [address] [place] [address] documented as of this encounter Visit Diagnoses Not on filedocumented in this encounter Additional Health Concerns Assessment Noted Time PHQ-9 Depression Total Score: 0 01/21/20 25 1:00 PM EDT documented as of this encounter Care Teams Lottery Manager Relationship Specialty Start Date End Date Eliceo Gómez DO [address] [place] [address] PCP - General Family Medicine 04/04/23 Eliceo Gómez DO [address] [place] [address] PCP - [facility] 05/06/23 Juan Damico DO [address] [place] [address] Referring Physician Obstetrics and Gynecology 05/20/24 documented as of this encounter
--- OUTSIDE RECORDS SUMMARY | 2025-07-30 07:43 | XMS_ITS | Encounter Summary ---
Author Organization [facility] Address [address] [facility] [place] [address] Care Team Providers Care Ict Support Technicians Name Role Phone Eliceo Gómez DO Primary Care Provider [phone] Eliceo Gómez DO Unavailable [phone] Juan Damico DO Unavailable [phone] Encounter Details Date Type Department Care Team (Late st Contact Info) Description 03/06/2025 Abstract [facility] [place] [facility] [address] [facility] [address] [place] [address] Eliceo Gómez DO [address] [facility] [address] [place], [place] [address] Social History Tobacco Use Types Packs/Day Years [...] Recorded Patient Health Questionnaire-2 Score 0 01/20/2025 [facility] [place] of Occupat ional Health - Occupational Stress [...] [address] [place] [address] Adriana Cruz MD [address] [place] [address] 11/20/2025 8:30 AM EST Office Visit [facility] [address] [place] [address] Nelsy Harris, DIFFERENTIAL SPECIALIST-MOTOR VEHICLE ASSEMBLY SUPERVISOR [address] [place] [address] documented as of this encounter Visit Diagnoses Not on filedocumented in this encounter Additional Health Concerns Assessment Noted Time PHQ-9 Depression Total Score: 0 01/21/20 25 1:00 PM EDT documented as of this encounter Care Teams Ict Support Technicians Relationship Specialty Start Date End Date Eliceo Gómez DO [address] [place] [address] PCP - General Family Medicine 04/04/23 Eliceo Gómez DO [address] [place] [address] PCP - [facility] 05/06/23 Juan Damico DO [address] [place] [address] Referring Physician Obstetrics and Gynecology 05/20/24 documented as of this encounter
--- OUTSIDE RECORDS SUMMARY | 2025-07-30 07:43 | XMS_ITS | Encounter Summary ---
Author Organization [facility] Address [address] [place] [address] Care Team Providers Care Side Panel Hanger Name Role Phone Eliceo Gómez DO Primary Care Provider Eliceo Gómez DO Unavailable [phone] Beata Hernandez Unavailable Juan Damico DO Unavailable [phone] Encounter Details Date Type Department Care Team (Late st Contact Info) Description 10/25/2023 Orders Only [facility] [place] [facility] [address] [place] [address] Jacob Felix MD [address] [place] [address] [place] [address] Social History Tobacco Use Types Packs/Day Years [...] Questionnaire-2 Score 0 10/03/2023 [facility] of Occupat ional Health - Occupational [...] [address] [place] [address] Adriana Cruz MD [address] [place] [address] 11/20/2025 8:30 AM EST Office Visit [facility] [address] [place] [address] PradeeptoniaNelsy, TIRE CENTER SUPERVISOR-PANEL SEWER [address] [place] [address] documented as of this encounter Procedures Procedure [...] on filedocumented in this encounter Care Teams Side Panel Hanger Relationship Specialty Start Date End Date Eliceo Gómez DO [address] [place] [address] PCP - General Family Medicine 04/04/23 Eliceo Gómez DO [address] [place] [address] PCP - [facility] 05/06/23 Beata Hernandez PA [address] [place] [address] Dietitian Nutrition 08/08/23 05/16/24 Juan Damico DO [address] [place] [address] Referring Physician Obstetrics and Gynecology 05/20/24 documented as of this encounter
--- OUTSIDE RECORDS SUMMARY | 2025-07-30 07:43 | XMS_ITS | Encounter Summary ---
Author Organization [facility] Address [address] [place] [address] Care Team Providers Care Business Development Professional Name Role Phone Eliceo Gómez DO Primary Care Provider [phone] Eliceo Gómez DO Unavailable [phone] Beata Hernandez Unavailable Juan Damico DO Unavailable [phone] Encounter Details Date Type Department Care Team [...] often do you attend chur ch or evangelical services? Never 04/14/2023 Do you [...] 0 10/03/2023 [facility] - Occupational Stress Questionnaire Answer Date [...] [address] [place] [address] Adriana Cruz MD [address] [place] [address] 11/20/2025 8:30 AM EST Office Visit [facility] [address] [place] [address] Nelsy Harris, INSURANCE SALES ASSOCIATE-CLUTCH ASSEMBLER [address] [place] [address] documented as of this encounter Procedures Procedure Name Priority Date/Time Associated Diagnosis Comments XR FOOT RT MIN 3V 10/25/2023 1:2 9 PM EST documented in this encounter Results * XR FOOT RT MIN 3V (10/25/2023 1:29 PM EST) Anatomical Region Laterality Modality Other 10/25/2023 1:29 PM EST Narrative 10/25/2023 1:31 [place] [address] XRay Report Signed Patient: MARY FUENTES MR#: [id number] : 1970 Acct:[id number] Age/Sex: 53 / F ADM Date: 10/25/23 Loc: RAD Attending Dr: Sade Felix D.P.M. Ordering Physician: Sade Felix D.P.M. Date of Service: 10/25/23 Procedure(s): XR foot RT min 3V Accession Number(s): [id number] cc: Sade Felix D.P.M.; Isatu GÓMEZ [place] [address] Patient Name: MARY FUENTES MRN: [id number] date: 1970 Sex: F Assigned Patient Location: [facility] Current Patient Location: [facility] Accession/Order Number: [id number] Exam Date: 10/25/2023 09:09 Report Date: 10/25/2023 13:29 At the request of: SADE FELIX Procedure: XR foot RT min 3V PROCEDURE: XR foot RT min 3V DATE: 10/25/2023 8:09 AM CANDLEMAKER COMPARISONS: 09/13/2023 CLINICAL INDICATION: RIGHT FOOT F/U [...] Signed By: 10/25/23 1331 DD/ 1329 TD/TT: Quality Control Engineer: Procedure Note Radiology, Radiologist, - 01/10/2024 [place] [address] XRay Report Signed Patient: MARY FUENTES DMR#: [id number] : 1970Acct:[id number] Age/Sex: 53 / FADM Date: 10/25/23 Loc: RAD Attending Dr: Sade Felix D.P.M. Ordering Physician: Sade Felix D.P.M. Date of Service: 10/25/23 Procedure(s): XR foot RT min 3V Accession Number(s): [id number] cc: Sade Felix D.P.M.; Isatu ÓGMEZ [place] [address] Patient Name: MARY FUENTES MRN: [id number] date: 1970 Sex: F Assigned Patient Location: [facility] Current Patient Location: [facility] Accession/Order Number: [id number] Exam Date: 10/25/2023 09:09 Report Date: 10/25/2023 13:29 At the request of: SADE FELIX Procedure: XR foot RT min 3V PROCEDURE: XR foot RT min 3V DATE: 10/25/2023 8:09 AM CANDLEMAKER COMPARISONS: 09/13/2023 CLINICAL INDICATION: RIGHT FOOT F/U [...] M.D. Signed By:10/25/23 1331 DD/ 1329 TD/TT: Quality Control Engineer: us Generic External Data Provider [facility] Final Result documented in this encounter Visit Diagnoses Not on filedocumented in this encounter Care Teams Business Development Professional Relationship Specialty Start Date End Date Eliceo Gómez DO [address] [place] [address] PCP - General Family Medicine 04/04/23 Eliceo Gómez DO [address] [place] [address] PCP - [facility] 05/06/23 Beata Hernandez PA [address] [place] [address] Dietitian Nutrition 08/08/23 05/16/24 Juan Damico DO [address] [place] [address] Referring Physician Obstetrics and Gynecology 05/20/24 documented as of this encounter
--- OUTSIDE RECORDS SUMMARY | 2025-07-30 07:43 | XMS_ITS | Encounter Summary ---
Author Organization [facility] Address [address] [place] [address] Care Team Providers Care Sales Rep Name Role Phone Eliceo Gómez DO Primary Care Provider [phone] Eliceo Gómez DO Unavailable [phone] Beata Hernandez Unavailable Juan Damico DO Unavailable [phone] Encounter Details Date Type Department Care Team (Late st Contact Info) Description 07/28/2023 Orders Only [facility] [place] [facility] [address] [place] [address] A, Unknown Practice [address] [place] [address] Social History Tobacco Use Types [...] How often do you attend chur or adventism services? Never 04/14/2023 Do you [...] Recorded Patient Health Questionnaire-2 Score 0 07/06/2023 [facility] [...] [address] [place] [address] Adriana Cruz MD [address] [place] [address] 11/20/2025 8:30 AM EST Office Visit [facility] [address] [place] [address] Nelsy Harris, SPINNING OPERATOR-CERTIFIED PHARMACIST ASSISTANT [address] [place] [address] documented as of this encounter Procedures Procedure [...] End Date Eliceo Gómez DO [address] [place] [address] PCP - General Family Medicine 04/04/23 Eliceo Gómez DO [address] [place] [address] PCP - [facility] 05/06/23 Beata Hernandez PA [address] [place] [address] Dietitian Nutrition 08/08/23 05/16/24 Juan Damico DO [address] [place] [address] Referring Physician Obstetrics and Gynecology 05/20/24 documented as of this encounter
--- OUTSIDE RECORDS SUMMARY | 2025-07-30 07:43 | XMS_ITS | Encounter Summary ---
Author Organization [facility] Address [address] [place] [address] Care Team Providers Care Leach Cell Operator Name Role Phone Eliceo Gómez DO Primary Care Provider [phone] Eliceo Gómez DO Unavailable [phone] Beata Hernandez Unavailable Juan Damico DO Unavailable [phone] Encounter Details Date Type Department Care Team [...] often do you attend chur ch or anglican services? Never 04/14/2023 Do you [...] 07/06/2023 [facility] - Occupational Stress Questionnaire Answer Date [...] Dermatology [address] [place] [address] Adriana Cruz MD [address] [place] [address] 11/20/2025 8:30 AM EST Office Visit [facility] [address] [place] [address] Nelsy Harris APRN-DIRECTOR OF RECRUITMENT [address] [place] [address] documented as of this encounter Procedures Procedure Name Priority Date/Time Associated Diagnosis Comments XR FOOT RT MIN 3V 08/03/2023 2:3 8 PM EDT documented in this encounter Results * XR FOOT RT MIN 3V (08/03/2023 2:38 PM EDT) Anatomical Region Laterality Modality Other 08/03/2023 2:38 PM EDT Narrative 08/03/2023 2:38 [place] [address] XRay Report Signed Patient: MARY FUENTES MR#: [id number] : 1970 Acct:[id number] Age/Sex: 53 / F ADM Date: Loc: RAD Attending Dr: Sade Felix D.P.M. Ordering Physician: Sade Felix M.D. Date of Service: 08/03/23 Procedure(s): XR foot RT min 3V Accession Number(s): [id number] cc: Sade Felix M.D.; Isatu GÓMEZ [place] [address] Patient Name: MARY FUENTES MRN: [id number] date: 1970 Sex: F Assigned Patient Location: [facility] Current Patient Location: [facility] Accession/Order Number: [id number] Exam Date: 08/03/2023 13:35 Report Date: 08/03/2023 14:38 At the request of: SADE FELIX Procedure: XR foot RT min 3V STUDY: XR foot RT min 3V, [id number] HISTORY: RIGHT FOOT PAIN COMPARISON: Right foot [...] Signed By: 08/03/23 1441 DD/ 1438 TD/TT: Physician Office Nurse: Procedure Note Radiology, Radiologist, MD - 08/03/2023 [place] [address] XRay Report Signed Patient: MARY FUENTES DMR#: [id number] : 1970Acct:[id number] Age/Sex: 53 / FADM Date: Loc: [facility] Attending Dr: Sade Felix D.P.M. Ordering Physician: Sade Felix M.D. Date of Service: 08/03/23 Procedure(s): XR foot RT min 3V Accession Number(s): [id number] cc: Sade Felix M.D.; Isatu GÓMEZ [place] [address] Patient Name: MARY FUENTES MRN: [id number] date: 1970 Sex: F Assigned Patient Location: [facility] Current Patient Location: [facility] Accession/Order Number: [id number] Exam Date: 08/03/2023 13:35 Report Date: 08/03/2023 14:38 At the request of: SADE FELIX Procedure: XR foot RT min 3V STUDY: XR foot RT min 3V, [id number] HISTORY: RIGHT FOOT PAIN COMPARISON: Right foot [...] Yang Signed By:08/03/23 1441 DD/ 1438 TD/TT: Physician Office Nurse: us Generic External Data Provider [facility] Final Result documented in this encounter Visit Diagnoses Not on filedocumented in this encounter Care Teams Leach Cell Operator Relationship Specialty Start Date End Date Eliceo Gómez DO [address] [place] [address] PCP - General Family Medicine 04/04/23 Eliceo Gómez DO [address] [place] [address] PCP - [facility] 05/06/23 Beata Hernandez PA [address] [place] [address] Dietitian Nutrition 08/08/23 05/16/24 Juan Damico DO [address] [place] [address] Referring Physician Obstetrics and Gynecology 05/20/24 documented as of this encounter
--- OUTSIDE RECORDS SUMMARY | 2025-07-30 07:43 | XMS_ITS | Encounter Summary ---
Author Organization [id number] [address] [place] [address] Care Team Providers Care Shale Miner Blasting Name Role Phone Dalia Morales DO, George R Primary Care Provider + Reason for Visit * Reason Onset Date Comments Med Refill 10/29/2020 Encounter Details Date Type Department Care Team (Late st Contact Info) Description 10/29/2020 [facility]phone [facility] [address] [place] [phone] Guera Benson CNA Med Refill Social History [...] Info) Description 08/18/2025 9:15 AM EDT Appointment [facility] [address] [place] [address] 08/18/2025 9:45 AM EDT Appointment [facility] [address] [place] [address] 08/19/2025 3:30 PM EDT Office Visit [facility] Department of [address] [place] [address] Pauline Christensen MD [address] [place] [address] [address] [place] [address] 10/08/2025 9:15 AM EST Appointment [facility] - Neuro[facility]iology [address] [place] [address] [address] [place] [address] 10/14/2025 8:00 AM EST Office Visit [facility] Department of [address] [place] [address] Justin Bhat MD [address] [place] [address] [address] [place] [address] documented as of this encounter Visit Diagnoses Not on filedocumented in this encounter Care Teams Shale Miner Blasting Relationship Specialty Start Date End Date Eliceo Gómez Jr., DO [address] [place] [address], [address] [address] PCP - General Family Medicine 12/11/19 Jenna Butler [address] Consulting Physician Behavioral Health 12/20/23 documented as of this encounter
--- OUTSIDE RECORDS SUMMARY | 2025-07-30 07:43 | XMS_ITS | Encounter Summary ---
Author Organization [facility] Address [address] [facility] [place] [address] Care Team Providers Care Contestant Coordinator Name Role Phone Eliceo Gómez DO Primary Care Provider [phone] Eliceo Gómez DO Unavailable [phone] Juan Damico DO Unavailable [phone] Encounter Details Date Type Department Care Team (Late st Contact Info) Description 08/28/2024 Abstract [facility] [place] [facility] [address] [place] [address] Eliceo Gómez DO [address] [facility] [address] [place], [place] [id number] Social History Tobacco Use Types Packs/Day Years [...] Recorded Patient Health Questionnaire-2 Score 0 07/11/2024 [facility] [place] of Occupat ional Health - Occupational Stress [...] time in the past 12 m [facility], were you homeless or living in a [...] Dermatology [address] [place] [address] Adriana Cruz MD [address] [place] [address] 11/20/2025 8:30 AM EST Office Visit [facility] [address] [place] [address] Nelsy Harris, WASHROOM CLEANER-DECORATING MACHINE OPERATOR [address] [place] [address] documented as of this encounter Visit Diagnoses Not on filedocumented in this encounter Care Teams Contestant Coordinator Relationship Specialty Start Date End Date lEiceo Gómez DO [address] [place] [address] PCP - General Family Medicine 04/04/23 Eliceo Gómez DO [address] [place] [address] PCP - [facility] 05/06/23 Juan Damico DO [address] [place] [address] Referring Physician Obstetrics and Gynecology 05/20/24 documented as of this encounter
--- OUTSIDE RECORDS SUMMARY | 2025-07-30 07:43 | XMS_ITS | Encounter Summary ---
Author Organization [facility] Address [address] [place] [address] Care Team Providers Care Rn Cardiovascular Name Role Phone Eliceo Gómez DO Primary Care Provider [phone] Eliceo Gómez DO Unavailable Juan Damico DO Unavailable [phone] Encounter Details Date Type Department Care Team [...] Description 08/27/2025 3:50 PM EDT Office Visit [facility] [place] [facility] [address] [place] [address] Adriana Cruz MD [address] [place] [address] 11/20/2025 8:30 AM EST Office Visit [facility] [place] [facility] [address] [place] [address] PradeepNelsy randall, REPORT SPECIALIST-CLERK RATING [address] [place] [address] documented as of this encounter Procedures Procedure Name Priority Date/Time Associated Diagnosis Comments XR THORACIC SPINE 2 VIEWS 07/13/2024 8:07 AM EDT documented in this encounter Results * XR thoracic spine 2 views (07/13/2024 8:07 AM EDT) Anatomical Region Laterality Modality Spine, T-spine Radiographic Ira ging 07/13/2024 8:07 AM EDT Narrative 07/13/2024 8:09 AM EDT [address] [address] XRay Report Signed Patient: MARY FUENTES MR#: [id number] : 1970 Acct:[id number] Age/Sex: 54 / F ADM Date: 07/12/24 Loc: RAD Attending Dr: Jses Black TERADATA ARCHITECT Ordering Physician: Jess Black NP Date of Service: 07/12/24 Procedure(s): XR thoracic spine 2V Accession Number(s): [id number] cc: Jess Black NP; Isatu GÓMEZ [address] [address] Patient Name: MARY FUENTES MRN: [id number] date: 1970 Sex: F Assigned Patient Location: [facility] Current Patient Location: Accession/Order Number: [id number] Exam Date: 07/12/2024 10:50 Report Date: 07/13/2024 [...] Dictated By: Adam Oliveros M.D. Signed By: 07/13/24 08 DD/ 6 TD/TT: Python Developer: Procedure Note Radiology, Radiologist, MD - 07/13/2024 [place] [address] XRay Report Signed Patient: MARY FUENTES DMR#: [id number] : 1970Acct:[id number] Age/Sex: 54 / FADM Date: 07/12/24 Loc: [facility] Attending Dr: Jess Black NP Ordering Physician: Jess Black NP Date of Service: 07/12/24 Procedure(s): XR thoracic spine 2V Accession Number(s): [id number] cc: Jess Black NP; Isatu GÓMEZ [place] [address] Patient Name: MARY FUENTES MRN: [id number] date: 1970 Sex: F Assigned Patient Location: [facility] Current Patient Location: Accession/Order Number: [id number] Exam Date: 07/12/2024 10:50 Report Date: 07/13/2024 [...] Oliveros M.D. Signed By:07/13/24808 DD/ 6 TD/TT: Python Developer: us Generic External Data Provider IMG XR PROCEDURES Final Result documented in this encounter Visit Diagnoses Not on filedocumented in this encounter Care Teams Rn Cardiovascular Relationship Specialty Start Date End Date Eliceo Gómez DO [address] [place] [address] PCP - General Family Medicine 04/04/23 Eliceo Gómez DO [address] [place] [address] PCP - [facility] 05/06/23 Juan Damico DO [address] [place] [address] Referring Physician Obstetrics and Gynecology 05/20/24 documented as of this encounter
--- OUTSIDE RECORDS SUMMARY | 2025-07-30 07:43 | XMS_ITS | Encounter Summary ---
Author Organization [facility] Address [address] [place] [address] Care Team Providers Care Video Camera Operator Name Role Phone Eliceo Gómez DO Primary Care Provider [phone] Eliceo Gómez DO Unavailable [phone] Beata Hernandez Unavailable Juan Damico DO Unavailable [phone] Encounter Details Date Type Department Care Team (Late st Contact Info) Description 07/12/2023 Orders Only [facility] [place] [facility] [address] [place] [address] A, Unknown Practice [address] [place] [address] Social History Tobacco Use Types Packs/Day Years [...] you attend chur or sabianist services? Never 04/14/2023 Do you [...] Recorded Patient Health Questionnaire-2 Score 0 07/06/2023 [facility] ional [facility] [...] MD [address] [place] [address] 11/20/2025 8:30 AM EST Office Visit [facility] [address] [place] [address] Nelsy Harris, CORRESPONDENCE CLERK-LOSS PREVENTION MANAGER [address] [place] [address] documented as of this encounter Procedures Procedure [...] on filedocumented in this encounter Care Teams Video Camera Operator Relationship Specialty Start Date End Date Eliceo Gómez DO [address] [place] [address] PCP - General Family Medicine 04/04/23 Eliceo Gómez DO [address] [place] [address] PCP - [facility] 05/06/23 Beata Hernandez PA [address] [place] [address] Dietitian Nutrition 08/08/23 05/16/24 Juan Damico DO [address] [place] [address] Referring Physician Obstetrics and Gynecology 05/20/24 documented as of this encounter
--- OUTSIDE RECORDS SUMMARY | 2025-07-30 07:43 | XMS_ITS | Encounter Summary ---
Author Organization [facility] Address [address] [place] [address] Care Team Providers Care Die Cast Operator Name Role Phone Eliceo Gómez DO Primary Care Provider [phone] Eliceo Gómez DO Unavailable [phone] Juan Damico DO Unavailable [phone] Encounter Details Date Type Department Care Team (Late st Contact Info) Description 01/30/2025 Abstract [facility] [place] [facility] [address] [facility] [address] [place] [address] Eliceo Gómez DO [address] [place] [address] Social History Tobacco Use Types [...] often do you attend chur ch or sikhism services? Never 05/01/2024 Do you [...] Recorded Patient Health Questionnaire-2 Score 0 01/20/2025 [facility] [place] of Occupat ional Health - Occupational Stress [...] Dermatology [address] [place] [address] Adriana Cruz MD [address] [place] [address] 11/20/2025 8:30 AM EST Office Visit [facility] [address] [place] [address] Nelsy Harris, BEER COOLER-BUNDLE PACKER [address] [place] [address] documented as of this encounter Visit Diagnoses Not on filedocumented in this encounter Additional Health Concerns Assessment Noted Time PHQ-9 Depression Total Score: 0 01/21/20 25 1:00 PM EDT documented as of this encounter Care Teams Die Cast Operator Relationship Specialty Start Date End Date Eliceo Gómez DO [address] [place] [address] PCP - General Family Medicine 04/04/23 Eliceo Gómez DO [address] [place] [address] PCP - [facility] 05/06/23 Juan Damico DO [address] [place] [address] Referring Physician Obstetrics and Gynecology 05/20/24 documented as of this encounter
--- OUTSIDE RECORDS SUMMARY | 2025-07-30 07:43 | XMS_ITS | Encounter Summary ---
Author Organization [facility] Address [address] [place] [address] Care Team Providers Care Patcher Bowling Ball Name Role Phone Eliceo Gómez DO Primary Care Provider Eilceo Gómez DO Unavailable [phone] Beata Hernandez Unavailable Juan Damico DO Unavailable [phone] Encounter Details Date Type Department Care Team (Late st Contact Info) Description 08/03/2023 Orders Only [facility] [place] [facility] [address] [place] [address] A, Unknown Practice [address] [place] [address] Social History Tobacco Use Types [...] Recorded Patient Health Questionnaire-2 Score 0 07/06/2023 [facility]at ional [facility] - [...] MD [address] [place] [address] 11/20/2025 8:30 AM EST Office Visit [facility] [address] [place] [address] Nelsy Harris, BRAKE DRUM LATHE OPERATOR-TAR AND AMMONIA PUMP OPERATOR [address] [place] [address] documented as of this encounter Procedures Procedure [...] on filedocumented in this encounter Care Teams Patcher Bowling Ball Relationship Specialty Start Date End Date Eliceo Gómez DO [address] [facility] [facility] [address] [place] [address] PCP - General Family Medicine 04/04/23 Eliceo Gómez DO [address] [facility] [address] [place] [address] PCP - [facility] 05/06/23 Beata Hernandez PA [address] [facility] [address] [place] [address] Dietitian Nutrition 08/08/23 05/16/24 Juan Damico DO [address] [place] [address] Referring Physician Obstetrics and Gynecology 05/20/24 documented as of this encounter
--- OUTSIDE RECORDS SUMMARY | 2025-07-30 07:43 | XMS_ITS | Encounter Summary ---
Author Organization [facility] tem Address [id number] [address] [place] [address] Care Team Providers Care Improvement Intern Name Role Phone Dalia Morales DO, George R Primary Care Provider + Encounter Details Date Type Department Care Team ([facility] Contact Info) Description 07/29/2025 Orders Only [facility] Digestive Health Care, A Department of [address] [phone] [place] [address] [place] [address] Gastroparesis (Primary Dx); Diarrhea, unspecified type; Flatulence Social History Tobacco Use Types Packs/Day Years [...] on file documented as of this encounter Progress Notes * oNman Mayo MD - 07/29/2025 6:41 PM EDT KUB order placed, back with information requested. documented in this encounter Plan of Treatment Upcoming Encounters Date Type Department Care Team (Late st Contact Info) Description 08/18/2025 9:15 AM EDT Appointment [facility] - MRI Imaging [address] [place] [address] 08/18/2025 9:45 AM EDT Appointment [facility] - MRI Imaging [address] [place] [address] 08/19/2025 3:30 PM EDT Office Visit [facility] Neurology, A Department of [address] [place] [address] Pauline Christensen MD [address] [place] [address] 101, 102, 103 [place] [address] 10/08/2025 9:15 AM EST Appointment [facility] Neuroscience Center - Neurophysiology [address] [place] [address] [address] [place] [address] 10/14/2025 8:00 AM EST Office Visit [facility] Neurology, A Department of [address], [address], [address] [place] [address] Justin Bhat MD [address] [place] [address] 101, 102, [address] [place] [address] Scheduled Orders Name Type Priority Associated Diagnoses Orde r Schedule X-ray abdomen ap 1 view Imaging Routine Gastroparesis Diarrhea, unspecified type Flatulence Expected: 07/29/2025, Expires: 07/29/2026 documented as of this encounter Visit Diagnoses Diagnosis Gastroparesis- Primary Diarrhea, unspecified type Flatulence Flatulence, eructation, and gas pain documented in this encounter Additional Health Concerns Assessment Noted Time PHQ-9 Depression Total Score: 0 07/15/20 25 9:02 AM EDT documented as of this encounter Care Teams Improvement Intern Relationship Specialty Start Date End Date Eliceo Gómez Jr., [address] [place] [address], [address], [place] [address] PCP - General Family Medicine 12/11/19 Jenna Butler [address] [place] [address] Consulting Physician Behavioral Health 12/20/23 documented as of this encounter
--- OUTSIDE RECORDS SUMMARY | 2025-07-30 07:43 | XMS_ITS | Encounter Summary ---
Author Organization [facility] Address [address] [place] [address] Care Team Providers Care Corporate Claims Examiner Name Role Phone Eliceo Gómez DO Primary Care Provider [phone] Eliceo Gómez DO Unavailable [phone] Beata Hernandez Unavailable Juan Damico DO Unavailable [phone] Encounter Details Date Type Department Care Team [...] Score 0 10/03/2023 [facility] - Occupational Stress Questionnaire Answer Date [...] [address] [place] [address] Adriana Cruz MD [address] [place] [address] 11/20/2025 8:30 AM EST Office Visit [facility] [address] [place] [address] Nelsy Harris APRN-PHARMACY HELPER [address] [place] [address] documented as of this encounter Procedures Procedure Name Priority Date/Time Associated Diagnosis Comments ECG 12-LEAD 11/03/2023 8:38 AM EST documented in this encounter Results * ECG 12-LEAD (11/03/2023 8:38 AM EST) Anatomical Region Laterality Modality Other 11/03/2023 8:38 AM EST Narrative 11/06/2023 5:22 [place] [address] Electrocardiograph Report Signed Patient: MARY FUENTES MR#: [id number] : 1970 Acct:[id number] Age/Sex: 53 / F ADM Date: Loc: SURGOUT Attending Dr: Sade Felix D.P.M. Ordering Physician: Sade Felix D.P.M. Date of Service: 11/03/23 Procedure(s): ECG 12 lead Accession Number(s): [id number] cc: [facility] Test Date: 2023-11-03 Pat Name: MARY FUENTES Department: Room: - Gender: Female Bander: : 1970 Requested By: SADE FELIX Order Number: [id number] Reading MD: RIGO EUCEDA Measurements Intervals Grandy Rate: 52 P: -2 IN: 171 QRS: 9 QRSD: 92 T: 8 QT: 437 QTc: 410 Interpretive Statements SINUS BRADYCARDIA WITH SINUS ARRHYTHMIA No previous ECG available for comparison Electronically Signed On 11-06-2023 17:22:20 EST by RIGO EUCEDA Dictated By: Rigo Euceda D.O. Signed By: 11/06/23 1722 DD/ 0838 TD/TT: Recorder Helper Gravity Prospecting: Procedure Note Radiology, Radiologist, MD - 11/06/2023 The [place] [id number] Electrocardiograph Report Signed Patient: MARY FUENTES DMR#: [id number] : 1970Acct:[id number] Age/Sex: 53 / FADM Date: Loc: SURGOUT Attending Dr: Sade Felix D.P.M. Ordering Physician: Sade Felix D.P.M. Date of Service: 11/03/23 Procedure(s): ECG 12 lead Accession Number(s): [id number] cc: [facility] Test Date: 2023-11-03 Pat Name: MARY FUENTES Department: Room: - Gender: Female Bander: : 1970 Requested By: SADE FELIX Order Number: [id number] Reading MD: RIGO EUCEDA Measurements Intervals Grandy Rate: 52 P: -2 IN: 171 QRS: 9 QRSD: 92 T: 8 QT: 437 QTc: 410 Interpretive Statements SINUS BRADYCARDIA WITH SINUS ARRHYTHMIA No previous ECG available for comparison Electronically Signed On 11-06-2023 17:22:20 EST by RIGO EUCEDA Dictated By: Rigo Euceda D.O. Signed By:11/06/23 1722 DD/ 0838 TD/TT: Recorder Helper Gravity Prospecting: us Generic External Data Provider [facility] Final Result documented in this encounter Visit Diagnoses Not on filedocumented in this encounter Care Teams Corporate Claims Examiner Relationship Specialty Start Date End Date Eliceo Gómez DO [address] [place] [address] PCP - General Family Medicine 04/04/23 Eliceo Gómez DO [address] [place] [address] PCP - [facility] 05/06/23 Beata Hernandez PA [address] [place] [address] Dietitian Nutrition 08/08/23 05/16/24 Juan Damico DO [address] [place] [address] Referring Physician Obstetrics and Gynecology 05/20/24 documented as of this encounter
--- OUTSIDE RECORDS SUMMARY | 2025-07-30 07:43 | XMS_ITS | Encounter Summary ---
Author Organization [facility] Address [address] [facility] [place] [address] Care Team Providers Care Body And Frame Technician Name Role Phone Eliceo Gómez DO Primary Care Provider [phone] Eliceo Gómez DO Unavailable [phone] Juan Damico DO Unavailable [phone] Encounter Details Date Type Department Care Team (Late st Contact Info) Description 08/05/2024 Abstract [facility] [place] [facility] [address] [facility] [address] [place] [address] Eliceo Gómez DO [address] [facility] [address] [place], [place] [phone] Social History Tobacco Use Types Packs/Day Years [...] Recorded Patient Health Questionnaire-2 Score 0 07/11/2024 [facility] of Occupat ional Health - Occupational Stress [...] Dermatology [address] [place] [address] Adriana Cruz MD [address] [place] [address] 11/20/2025 8:30 AM EST Office Visit [facility] [address] [place] [address] Nelsy Harris, PIGMENT MAKING SUPERVISOR-PHYSICAL TESTING SUPERVISOR [address] [place] [address] documented as of this encounter Visit Diagnoses Not on filedocumented in this encounter Care Teams Body And Frame Technician Relationship Specialty Start Date End Date Eliceo Gómez DO [address] [place] [address] PCP - General Family Medicine 04/04/23 Eliceo Gómez DO [address] [place] [address] PCP - [facility] 05/06/23 Juan Damico DO [address] [place] [address] Referring Physician Obstetrics and Gynecology 05/20/24 documented as of this encounter
--- OUTSIDE RECORDS SUMMARY | 2025-07-30 07:43 | XMS_ITS | Encounter Summary ---
Author Organization [facility] Address [address] [facility] [place] [address] Care Team Providers Care Ambulatory Care Nurse Name Role Phone Eliceo Gómez DO Primary Care Provider [phone] Eliceo Gómez DO Unavailable [phone] Juan Damico DO Unavailable [phone] Encounter Details Date Type Department Care Team (Late st Contact Info) Description 10/07/2024 Abstract [facility] [place] [facility] [address] [facility] [address] [place] [address] Eliceo Gómez DO [address] [facility] [address] [place], [place] [phone] Social History Tobacco Use Types Packs/Day Years [...] Recorded Patient Health Questionnaire-2 Score 0 07/11/2024 [facility] of Occupat ional Health - Occupational Stress [...] Dermatology [address] [place] [address] Adriana Cruz MD [address] [place] [address] 11/20/2025 8:30 AM EST Office Visit [facility] [address] [place] [address] Nelsy Harris, CONTACT CENTER ASSOCIATE-TABLE GAMES SUPERVISOR [address] [place] [address] documented as of this encounter Visit Diagnoses Not on filedocumented in this encounter Care Teams Ambulatory Care Nurse Relationship Specialty Start Date End Date Eliceo Gómez DO [address] [place] [address] PCP - General Family Medicine 04/04/23 Eliceo Gómez DO [address] [place] [address] PCP - [facility] 05/06/23 Juan Damico DO [address] [place] [address] Referring Physician Obstetrics and Gynecology 05/20/24 documented as of this encounter
--- OUTSIDE RECORDS SUMMARY | 2025-07-30 07:43 | XMS_ITS | Encounter Summary ---
Author Organization [facility] Address [address] [facility] [place] [address] Care Team Providers Care Sprinkler Fitter Helper Name Role Phone Eliceo Gómez DO Primary Care Provider [phone] Eliceo Gómez DO Unavailable [phone] Juan Damico DO Unavailable [phone] Encounter Details Date Type Department Care Team (Late st Contact Info) Description 12/26/2024 Abstract [facility] [place] [facility] [address] [facility] [address] [place] [address] Eliceo Gómez DO [address] [facility] [address] [place], [place] [address] Social History Tobacco Use Types Packs/Day Years [...] often do you attend chur ch or mu-ism services? Never 05/01/2024 Do you [...] Recorded Patient Health Questionnaire-2 Score 0 07/11/2024 [facility] [place] of Occupat ional Health - Occupational Stress [...] Dermatology [address] [place] [address] Adriana Cruz MD [address] [place] [address] 11/20/2025 8:30 AM EST Office Visit [facility] [address] [place] [address] Nelsy Harris, PRIVATE BANKER-INDUSTRIAL METHODS CONSULTANT [address] [place] [address] documented as of this encounter Visit Diagnoses Not on filedocumented in this encounter Care Teams Sprinkler Fitter Helper Relationship Specialty Start Date End Date Eliceo Gómez DO [address] [place] [address] PCP - General Family Medicine 04/04/23 Eliceo Gómez DO [address] [place] [address] PCP - [facility] 05/06/23 Juan Damico DO [address] [place] [address] Referring Physician Obstetrics and Gynecology 05/20/24 documented as of this encounter
--- OUTSIDE RECORDS SUMMARY | 2025-07-30 07:43 | XMS_ITS | Encounter Summary ---
Author Organization [facility] Address [address] [place] [address] Care Team Providers Care Manager Relationship Name Role Phone Eliceo Gómez DO Primary Care Provider [phone] Eliceo Gómez DO Unavailable [phone] Juan Damico DO Unavailable [phone] Encounter Details Date Type Department Care Team [...] Recorded Patient Health Questionnaire-2 Score 0 07/11/2024 [facility] of Occupat ional Health [...] Dermatology [address] [place] [address] Adriana Cruz MD [address] [place] [address] 11/20/2025 8:30 AM EST Office Visit [facility] [address] [place] [address] Nelsy Harris, SUPERVISOR [employer]INS[employer]ING [employer]-COMMUNITY ADVOCATE [address] [place] [address] documented as of this encounter Procedures Procedure Name Priority Date/Time Associated Diagnosis Comments XR FOOT RT MIN 3V 08/01/2024 5:0 1 AM EDT documented in this encounter Results * XR FOOT RT MIN 3V (08/01/2024 5:01 AM EDT) Anatomical Region Laterality Modality Other 08/01/2024 5:01 AM EDT Narrative 08/01/2024 5:04 AM EDT [address] [address] XRay Report Signed Patient: MARY FUENTES MR#: [id number] : 1970 Acct:[id number] Age/Sex: 54 / F ADM Date: 07/30/24 Loc: EC Attending Dr: Sade Felix D.P.M. Ordering Physician: Sade Felix D.P.M. Date of Service: 07/30/24 Procedure(s): XR foot RT min 3V Accession Number(s): [id number] cc: Sade Felix D.P.M.; Isatu GÓMEZ [address] [address] Patient Name: MARY FUENTES MRN: [id number] date: 1970 Sex: F Assigned Patient Location: EC Current Patient Location: Accession/Order Number: [id number] Exam Date: 07/30/2024 09:46 Report Date: 08/01/2024 [...] Signed By: 08/01/24 050 DD/ 050 TD/TT: Frame Opener: Procedure Note Radiology, Radiologist, MD - 08/01/2024 [place] [address] XRay Report Signed Patient: MARY FUENTES DMR#: [id number] : 1970Acct:[id number] Age/Sex: 54 / FADM Date: 07/30/24 Loc: EC Attending Dr: Sade Felix D.P.M. Ordering Physician: Sade Felix D.P.M. Date of Service: 07/30/24 Procedure(s): XR foot RT min 3V Accession Number(s): [id number] cc: Sade Felix D.P.M.; Isatu GÓMEZ The [place] [address] Patient Name: MARY FUENTES MRN: [id number] date: 1970 Sex: F Assigned Patient Location: Current Patient Location: Accession/Order Number: [id number] Exam Date: 07/30/2024 09:46 Report Date: 08/01/2024 [...] M.D. Signed By:08/01/24 0504 DD/ 050 TD/TT: Frame Opener: Generic External Data Provider [facility] Final Result documented in this encounter Visit Diagnoses Not on filedocumented in this encounter Care Teams Manager Relationship Relationship Specialty Start Date End Date Eliceo Gómez DO [address] [place] [address] PCP - General Family Medicine 04/04/23 Eliceo Gómez DO [address] [place] [address] PCP - [facility] 05/06/23 Juan Damico DO [address] [place] [address] Referring Physician Obstetrics and Gynecology 05/20/24 documented as of this encounter
--- OUTSIDE RECORDS SUMMARY | 2025-07-30 07:43 | XMS_ITS | Encounter Summary ---
Author Organization [facility] [employer] [facility] tem Address [id number] [address] [place] [address] Care Team Providers Care Marine Chronometer Assembler Name Role Phone Dalia Morales DO, George R Primary Care Provider + Encounter Details Date Type Department Care Team (Late st Contact Info) Description 06/11/2025 Orders Only [facility], A Department of [facility] [address] [facility] [address] [place] [address] Ref Prov, [place] [address] Social History Tobacco Use Types Packs/Day Years [...] Info) Description 08/18/2025 9:15 AM EDT Appointment [facility] - MRI Imaging [address] [place] [address] 08/18/2025 9:45 AM EDT Appointment [facility] - MRI Imaging [address] [place] [address] 08/19/2025 3:30 PM EDT Office Visit [facility] Neurology, A Department of [address], [address] [place] [address] Pauline Christensen MD [address] [place] [address] 101, [address], [address] [place] [address] 10/08/2025 9:15 AM EST Appointment [facility] Neuroscience Center - Neurophysiology [address] [place] [address] [address] [place] [address] 10/14/2025 8:00 AM EST Office Visit [facility] Neurology, A Department of [address], [address], [address] [place] [address] Justin Bhat MD [address] [place] [address] 101, [address], [address] [place] [address] documented as of this encounter Procedures Procedure [...] documented as of this encounter Care Teams Marine Chronometer Assembler Relationship Specialty Start Date End Date Eliceo Gómez Jr., DO [address] [place] [address], [address], [place] [address] PCP - General Family Medicine 12/11/19 Jenna Butler [address] Consulting Physician Behavioral Health 12/20/23 documented as of this encounter
--- OUTSIDE RECORDS SUMMARY | 2025-07-30 07:43 | XMS_ITS | Encounter Summary ---
Author Organization [facility] Address [address] [facility] [place] [address] Care Team Providers Care Final Application Reviewer Name Role Phone Eliceo Gómez DO Primary Care Provider [phone] Eliceo Gómez DO Unavailable [phone] Juan Damico DO Unavailable [phone] Encounter Details Date Type Department Care Team (Late st Contact Info) Description 07/22/2024 Abstract [facility] [place] [facility] [address] [facility] [address] [place] [address] Eliceo Gómez DO [address] [facility] [address] [place], [place] [phone] Social History Tobacco Use Types Packs/Day Years [...] Recorded Patient Health Questionnaire-2 Score 0 07/11/2024 [facility] of Occupat ional Health - Occupational Stress [...] Dermatology [address] [place] [address] Adriana Cruz MD [address] [place] [address] 11/20/2025 8:30 AM EST Office Visit [facility] [address] [place] [address] Nelsy Harris, LADDERMAN-JUNIOR SOFTWARE DEVELOPER [address] [place] [address] documented as of this encounter Visit Diagnoses Not on filedocumented in this encounter Care Teams Final Application Reviewer Relationship Specialty Start Date End Date Eliceo Gómez DO [address] [place] [address] PCP - General Family Medicine 04/04/23 Eliceo Gómez DO [address] [place] [address] PCP - [facility] 05/06/23 Juan Damico DO [address] [place] [address] Referring Physician Obstetrics and Gynecology 05/20/24 documented as of this encounter
--- OUTSIDE RECORDS SUMMARY | 2025-07-30 07:43 | XMS_ITS | Encounter Summary ---
Author Organization [facility] Address [address] [place] [address] Care Team Providers Care Leadlighter Name Role Phone Eliceo Gómez DO Primary Care Provider [phone] Eliceo Gómez DO Unavailable [phone] Beata Hernandez Unavailable Juan Damico DO Unavailable [phone] Encounter Details Date Type Department Care Team (Late st Contact Info) Description 09/13/2023 Orders Only [facility] [place] [facility] [address] [place] [address] A, Unknown Practice [address] [place] [address] Social History Tobacco Use Types Packs/Day Years [...] Recorded Patient Health Questionnaire-2 Score 0 07/06/2023 [facility] of Occupat ional Health - Occupational [...] [address] [place] [address] Adriana Cruz MD [address] [place] [address] 11/20/2025 8:30 AM EST Office Visit [facility] [address] [place] [address] Nelsy Harris, BONDACTOR MACHINE OPERATOR-NEON ELECTRICIAN [address] [place] [address] documented as of this encounter Procedures Procedure [...] on filedocumented in this encounter Care Teams Leadlighter Relationship Specialty Start Date End Date Eliceo Gómez DO [address] [place] [address] PCP - General Family Medicine 04/04/23 Eliceo Gómez DO [address] [place] [address] PCP - [facility] 05/06/23 Beata Hernandez PA [address] [place] [address] Dietitian Nutrition 08/08/23 05/16/24 Juan Damico DO [address] [place] [address] Referring Physician Obstetrics and Gynecology 05/20/24 documented as of this encounter
--- OUTSIDE RECORDS SUMMARY | 2025-07-30 07:43 | XMS_ITS | Encounter Summary ---
Author Organization [employer] Address [id number] [address] [place] [address] Care Team Providers Care Level Vial Setter Name Role Phone Dalia Morales DO, George R Primary Care Provider + Reason for Visit * Reason Onset Date Comments Med Refill 11/04/2020 Encounter Details Date Type Department Care Team (Late st Contact Info) Description 11/04/2020 Refill [facility] [address] [place] [address] Demi Machado Chronic mixed headache [...] daily. [facility] [place] on [address] [facility] per patient's chart/request. Please call back and advise, callback#: [phone]. * Telephone Encounter - Jessi Franklin RN - 11/04/2020 11:41 AM EST Looks like script was pended/routed on 10/21/2020 per refill encounter dated 10/19/2020- not sure what happened to it after that. Indomethacin 75 mg BID script pended and re-routed to provider for approval and signature. Jessi Franklin RN 11/04/20 1336 documented in this encounter Plan of Treatment Upcoming Encounters Date Type Department Care Team (Late st Contact Info) Description 08/18/2025 9:15 AM EDT Appointment [facility] - MRI Imaging [address] [place] [address] 08/18/2025 9:45 AM EDT Appointment [facility] - MRI Imaging [address] [place] [address] 08/19/2025 3:30 PM EDT Office Visit [facility], A Department of [address] [place] [address] Pauline Christensen MD [address] [place] [address] 101, [address], [address] [place] [address] 10/08/2025 9:15 AM EST Appointment [facility] Neuroscience Center - Neurophysiology [address] [place] [address] [address] [place] [address] 10/14/2025 8:00 AM EST Office Visit [facility] Neurology, A Department of [address], [address], [address] [place] [address] Justin Bhat MD [address] [place] [address] 101, [address], [address] [place], [place] [address] documented as of this encounter Visit Diagnoses Diagnosis Chronic mixed headache syndrome- Primary Other headache syndromes documented in this encounter Care Teams Level Vial Setter Relationship Specialty Start Date End Date Eliceo Gómez Jr., [address] [place] [address], [address] [address] PCP - General Family Medicine 12/11/19 Jenna Butler [address] Consulting Physician Behavioral Health 12/20/23 documented as of this encounter
--- OUTSIDE RECORDS SUMMARY | 2025-07-30 07:43 | XMS_ITS | Encounter Summary ---
Author Organization [employer] Address [id number] [address] [place] [address] Care Team Providers Care Speech Language Pathologist Assistant Name Role Phone Dalia Morales DO, George R Primary Care Provider + Reason for Visit * Reason Comments Med Refill Encounter Details Date Type Department Care Team (Late st Contact Info) Description 10/19/2020 Refill [facility] [address] [place] [address] Pauline Christensen MD [address] [place] [address], [facility] [address], [address] [place] [address] Chronic mixed headache syndrome Social [...] 10/19/2020 4:15 PM EST RN sent a [employer] message to patient (a modality with which she frequently communicates with this office) to inquire if the indomethacin is still helping. RN will update the refill request when response received. Jessi Franklin RN 10/20/20 3814 * Telephone Encounter - Jessi Franklin RN - 10/19/2020 4:15 PM EST Patient responded to [employer] message as below: It helps some days. But not all the time. Is it time for a change maybe? Please advise, and thank you. Jessi Franklin RN 10/20/20 0930 * Telephone Encounter - Pauline Christensen MD [...] Linda in mid- September. RN asked in [email or web address] message if she is still taking Dayvigo. [...] EST Received call today 10/21/20 9:30 from [facility] who states that both the scriptsfor [...] is taking it. RN called [facility] at number below. RN spoke with pharmacist [...] Info) Description 08/18/2025 9:15 AM EDT Appointment [facility] - MRI Imaging [address] [place] [address] 08/18/2025 9:45 AM EDT Appointment [facility] - MRI Imaging [address] [place] [address] 08/19/2025 3:30 PM EDT Office Visit [facility] Neurology, A Department of [address] [place] [address] Pauline Christensen MD [address] [place] [address] [address], [address], [address] [place] [address] 10/08/2025 9:15 AM EST Appointment [facility] Neuroscience [facility] - Neurophysiology [address] [place] [address] [address] [place] [address] 10/14/2025 8:00 AM EST Office Visit [facility] Neurology, A Department of [address] [place] [address] Justin Bhat MD [address] [place] [address] 101, [address], [address] [place] [address] documented as of this encounter Visit Diagnoses Diagnosis Chronic mixed headache syndrome Other headache syndromes documented in this encounter Care Teams Speech Language Pathologist Assistant Relationship Specialty Start Date End Date Eliceo Gómez Jr., [address] [place] [address], [address] [place] [address] PCP - General Family Medicine 12/11/19 Jenna Butler [address] [place] [address] Consulting Physician Behavioral Health 12/20/23 documented as of this encounter
--- OUTSIDE RECORDS SUMMARY | 2025-07-30 07:43 | XMS_ITS | Encounter Summary ---
Author Organization [facility] Address [address] [facility] [place] [address] Care Team Providers Care Ship Pilot Dispatcher Name Role Phone Eliceo Gómez DO Primary Care Provider [phone] Eliceo Gómez DO Unavailable [phone] Juan Damico DO Unavailable [phone] Encounter Details Date Type Department Care Team (Late st Contact Info) Description 11/20/2024 Abstract [facility] [place] [facility] [address] [facility] [address] [place] [address] Eliceo Gómez DO [address] [facility] [address] [place], [place] [address] Social History Tobacco Use Types Packs/Day Years [...] Recorded Patient Health Questionnaire-2 Score 0 07/11/2024 [facility] of Occupat ional Health - Occupational Stress [...] time in the past 12 m [facility], were you homeless or living in [...] Dermatology [address] [place] [address] Adriana Cruz MD [address] [place] [address] 11/20/2025 8:30 AM EST Office Visit [facility] [address] [place] [address] Nelsy Harris, TEA PLANTATION WORKER-MAIL DISTRIBUTION SCHEME EXAMINER [address] [place] [address] documented as of this encounter Visit Diagnoses Not on filedocumented in this encounter Care Teams Ship Pilot Dispatcher Relationship Specialty Start Date End Date Eliceo Gómez DO [address] [place] [address] PCP - General Family Medicine 04/04/23 Eliceo Gómez DO [address] [place] [address] PCP - [facility] 05/06/23 Juan Damico DO [address] [place] [address] Referring Physician Obstetrics and Gynecology 05/20/24 documented as of this encounter
--- OUTSIDE RECORDS SUMMARY | 2025-07-30 07:43 | XMS_ITS | Encounter Summary ---
Author Organization [facility] Address [address] [place] [address] Care Team Providers Care Starchmaker Name Role Phone Eliceo Gómez DO Primary Care Provider [phone] Eliceo Gómez DO Unavailable [phone] Beata Hernandez Unavailable Juan Damico DO Unavailable [phone] Encounter Details Date Type Department Care Team [...] Score 0 10/03/2023 [facility] - [facility]ational [...] Dermatology [address] [place] [address] Adriana Cruz MD [address] [place] [address] 11/20/2025 8:30 AM EST Office Visit [facility] [address] [place] [address] Nelsy Harris APRN-SURVEY CAD TECHNICIAN [address] [place] [address] documented as of this encounter Procedures Procedure Name Priority Date/Time Associated Diagnosis Comments XR FOOT RT MIN 3V 11/13/2023 12: 52 PM EST documented in this encounter Results * XR FOOT RT MIN 3V (11/13/2023 12:52 PM EST) Anatomical Region Laterality Modality Other 11/13/2023 12:5 2 PM EST Narrative 11/13/2023 12:54 PM EST [address] [address] XRay Report Signed Patient: MARY FUENTES MR#: [id number] : 1970 Acct:[id number] Age/Sex: 53 / F ADM Date: 11/13/23 Loc: SURGOUT Attending Dr: Jacob Felix D.P.M. Ordering Physician: Ritchie Gonzalez D.P.M. Date of Service: 11/13/23 Procedure(s): XR foot RT min 3V Accession Number(s): [id number] cc: Isatu GÓMEZ ; Ritchie Gonzalez D.P.M. [address] [address] Patient Name: MARY FUENTES MRN: [id number] date: 1970 Sex: F Assigned Patient Location: [facility] Current Patient Location: Accession/Order Number: [id number] Exam Date: 11/13/2023 11:30 Report Date: 11/13/2023 [...] Signed By: 11/13/23 1254 DD/ 1252 TD/TT: Table Maker: Procedure Note Radiology, Radiologist, MD - 01/10/2024 The [place] [id number] XRay Report Signed Patient: MARY FUENTES DMR#: [id number] : 1970Acct:[id number] Age/Sex: 53 / FADM Date: 11/13/23 Loc: SURGOUT Attending Dr: Jacob Felix D.P.M. Ordering Physician: Ritchie Gonzalez D.P.M. Date of Service: 11/13/23 Procedure(s): XR foot RT min 3V Accession Number(s): [id number] cc: Isatu GÓMEZ ; Ritchie Gonzalez D.P.M. The [address] [address] Patient Name: MARY FUENTES MRN: [facility]:[id number] date: 1970 Sex: F Assigned Patient Location: [facility] Current Patient Location: Accession/Order Number: [id number] Exam Date: 11/13/2023 11:30 Report Date: 11/13/2023 [...] M.D. Signed By:11/13/23 1254 DD/ 51 TD/TT: Table Maker: us Generic External Data Provider [facility] Final Result documented in this encounter Visit Diagnoses Not on filedocumented in this encounter Care Teams Starchmaker Relationship Specialty Start Date End Date Eliceo Gómez DO [address] [place] [address] PCP - General Family Medicine 04/04/23 Eliceo Gómez DO [address] [place] [address] PCP - [facility] 05/06/23 Beata Hernandez PA [address] [place] [address] Dietitian Nutrition 08/08/23 05/16/24 Juan Damico DO [address] [place] [address] Referring Physician Obstetrics and Gynecology 05/20/24 documented as of this encounter
--- OUTSIDE RECORDS SUMMARY | 2025-07-30 07:44 | XMS_ITS | Encounter Summary ---
Author Organization [facility] Address [address] [place] [address] Care Team Providers Care Customer Consultant Name Role Phone Eliceo Gómez DO Primary Care Provider [phone] Eliceo Gómez DO Unavailable [phone] Beata Hernandez Unavailable Juan Damico DO Unavailable [phone] Encounter Details Date Type Department Care Team [...] [facility] - Occupational Stress Questionnaire Answer Date [...] Dermatology [address] [place] [address] Adriana Cruz MD [address] [place] [address] 11/20/2025 8:30 AM EST Office Visit [facility] [address] [place] [address] Nelsy Harris APRN-POCKET GRINDER OPERATOR [address] [place] [address] documented as of this encounter Procedures Procedure Name Priority Date/Time Associated Diagnosis Comments XR FOOT RT MIN 3V 02/29/2024 6:3 7 AM EDT documented in this encounter Results * XR FOOT RT MIN 3V (02/29/2024 6:37 AM EDT) Anatomical Region Laterality Modality Other 02/29/2024 6:37 AM EDT Narrative 02/29/2024 6:40 AM EDT [address] [address] XRay Report Signed Patient: MARY FUENTES MR#: [id number] : 1970 Acct:[id number] Age/Sex: 53 / F ADM Date: 02/28/24 Loc: EC Attending Dr: Sade Felix D.P.M. Ordering Physician: Sade Felix D.P.M. Date of Service: 02/28/24 Procedure(s): XR foot RT min 3V Accession Number(s): [id number] cc: Sade Felix D.P.M.; Isatu GÓMEZ The [place] [address] Patient Name: MARY FUENTES MRN: [id number] date: 1970 Sex: F Assigned Patient Location: Current Patient Location: Accession/Order Number: [id number] Exam Date: 02/28/2024 09:13 Report Date: 02/29/2024 [...] Oliveros M.D. Signed By: 02/29/2440 DD/ TD/TT: Industrial Education Instructor: Procedure Note Radiology, Radiologist, MD - 02/29/2024 [place] [address] XRay Report Signed Patient: MARY FUENTES DMR#: [id number] : 1970Acct:[id number] Age/Sex: 53 / FADM Date: 02/28/24 Loc: EC Attending Dr: Sade Felix D.P.M. Ordering Physician: Sade Felix D.P.M. Date of Service: 02/28/24 Procedure(s): XR foot RT min 3V Accession Number(s): [id number] cc: Sade Felix D.P.M.; Isatu GÓMEZ [place] [id number] Patient Name: MARY FUENTES MRN: [id number] date: 1970 Sex: F Assigned Patient Location: Current Patient Location: Accession/Order Number: [id number] Exam Date: 02/28/2024 09:13 Report Date: 02/29/2024 [...] M.D. Signed By:02/29/24 0640 DD/ 0637 TD/TT: Industrial Education Instructor: us Generic External Data Provider [facility] Final Result documented in this encounter Visit Diagnoses Not on filedocumented in this encounter Care Teams Customer Consultant Relationship Specialty Start Date End Date Eliceo Gómez DO [address] [place] [address] PCP - General Family Medicine 04/04/23 Eliceo Gómez DO [address] [place] [address] PCP - [facility] 05/06/23 Beata Hernandez PA [address] [place] [address] Dietitian Nutrition 08/08/23 05/16/24 Juan Damico DO [address] [place] [address] Referring Physician Obstetrics and Gynecology 05/20/24 documented as of this encounter
--- OUTSIDE RECORDS SUMMARY | 2025-07-30 07:44 | XMS_ITS | Encounter Summary ---
Author Organization [facility] Address [address] [place] [address] Care Team Providers Care Physics Faculty Member Name Role Phone Eliceo Gómez DO Primary Care Provider [phone] Eliceo Gómez DO Unavailable [phone] Beata Hernandez Unavailable Juan Damico DO Unavailable [phone] Encounter Details Date Type Department Care Team (Late st Contact Info) Description 05/19/2023 Orders Only [facility] [place] [facility] [address] [place] [address] Provider, MD Pilo [address] [place] [address] Social History Tobacco Use Types Packs/Day [...] Recorded Patient Health Questionnaire-2 Score 0 04/06/2023 [facility] of Occupat ional [facility] - Occupational Stress Questionnaire Answer Date [...] [address] [place] [address] Adriana Cruz MD [address] [place] [address] 11/20/2025 8:30 AM EST Office Visit [facility] [address] [place] [address] Nelsy Harris, DISPATCHER MOTOR VEHICLE-BRIM IRONER HAND [address] [place] [address] documented as of this encounter Procedures Procedure [...] on filedocumented in this encounter Care Teams Physics Faculty Member Relationship Specialty Start Date End Date Eliceo Gómez DO [address] [facility] [address] [place] [address] PCP - General Family Medicine 04/04/23 Eliceo Gómez DO [address] [facility] [address] [facility] [address] [place] [address] PCP - [facility] 05/06/23 Beata Hernandez PA [address] [place] [address] Dietitian Nutrition 08/08/23 05/16/24 Juan Damico DO [address] [facility] [address] [place] [address] Referring Physician Obstetrics and Gynecology 05/20/24 documented as of this encounter
--- OUTSIDE RECORDS SUMMARY | 2025-07-30 07:44 | XMS_ITS | Encounter Summary ---
Author Organization [facility] Address [address] [facility] [place] [address] Care Team Providers Care Seaman Officer Name Role Phone Eliceo Gómez DO Primary Care Provider [phone] Juan Damico DO Unavailable [phone] Encounter Details Date Type Department Care Team (Late st Contact Info) Description 06/27/2025 Abstract [facility] [place] [facility] [address] [facility] [address] [place] [address] Eliceo Gómez DO [address] [facility] [address] [place] [address] Social History Tobacco Use Types [...] attend chur ch or protestant services? Never 06/04/2025 Do you belong to [...] Recorded Patient Health Questionnaire-2 Score 0 06/24/2025 [facility] of Occupat ional Health - Occupational [...] in a senior care (including now)? No 06/04/2025 Comments No Sex [...] Office Visit [facility] [address] [place] [address] Adriana Cruz MD [address] [place] [address] 11/20/2025 8:30 AM EST Office Visit [facility] [address] [place] [address] Nelsy Harris, GUEST RELATIONS MANAGER-RELATIONSHIP EXECUTIVE [address] [place] [address] documented as of this encounter Visit Diagnoses Not on filedocumented in this encounter Additional Health Concerns Assessment Noted Time PHQ-9 Depression Total Score: 0 01/21/20 25 1:00 PM EDT documented as of this encounter Care Teams Seaman Officer Relationship Specialty Start Date End Date Eliceo Gómez DO [address] [place] [address] PCP - General Family Medicine 04/04/23 Juan Damico DO [address] [place] [address] Referring Physician Obstetrics and Gynecology 05/20/24 documented as of this encounter
--- OUTSIDE RECORDS SUMMARY | 2025-07-30 07:44 | XMS_ITS | Encounter Summary ---
Author Organization [facility] [employer] [facility] tem Address [id number] [address] [place] [address] Care Team Providers Care Recreational Vehicle Repairer Name Role Phone Dalia Morales DO, George R Primary Care Provider + Reason for Visit * Reason Onset Date Comments Pt wants to schedule surgery 11/24/2023 Encounter Details Date Type Department Care Team (Late st Contact Info) Description 11/24/2023 Telephone [facility] - ENT [address] [place] [address], [address] [place] [address] Cullen Dawkins MD [address] [place] [address] [address] [place] [address] Pt wants to schedule surgery [...] Info) Description 08/18/2025 9:15 AM EDT Appointment [facility] - MRI Imaging [address] [place] [address] 08/18/2025 9:45 AM EDT Appointment [facility] - MRI Imaging [address] [place] [address] 08/19/2025 3:30 PM EDT Office Visit [facility] Neurology, A Department of [address] [place] [address] Pauline Christensen MD [address] [place] [address] 101, [address], [address] [place] [address] 10/08/2025 9:15 AM EST Appointment [facility] Center - Neurophysiology [address] [place] [address] [address] [place] [address] 10/14/2025 8:00 AM EST Office Visit [facility] Neurology, A Department of [address] [place] [address] Justin Bhat MD [address] [place] [address] 101, [address], [address] [place] [address] documented as of this encounter Visit Diagnoses Not on filedocumented in this encounter Additional Health Concerns Assessment Noted Time PHQ-9 Depression Total Score: 0 10/23/20 23 1:26 PM EST documented as of this encounter Care Teams Recreational Vehicle Repairer Relationship Specialty Start Date End Date Eliceo Gómez Jr., [address] [place] [address], [address] [address] PCP - General Family Medicine 12/11/19 Jenna Butler [address] Consulting Physician Behavioral Health 12/20/23 documented as of this encounter
--- OUTSIDE RECORDS SUMMARY | 2025-07-30 07:44 | XMS_ITS | Encounter Summary ---
Author Organization [facility] Address [address] [place] [facility] [place] [address] Care Team Providers Care Protective Service Specialist Name Role Phone Eliceo Gómez DO Primary Care Provider [phone] Eliceo Gómez DO Unavailable [phone] Beata Hernandez Unavailable Juan Damico DO Unavailable [phone] Encounter Details Date Type Department Care Team (Late st Contact Info) Description 03/04/2024 Abstract [facility] [place] [facility] [address] [facility] [address] [place] [address] Eliceo Gómez DO [address] [facility] [address] [place] [address] Social History Tobacco Use Types Packs/Day Years [...] Patient Health Questionnaire-2 Score 0 10/03/2023 [facility] of Occupat [...] [address] [place] [address] Adriana Cruz MD [address] [place] [address] 11/20/2025 8:30 AM EST Office Visit [facility] [address] [place] [address] Nelsy Harris, ESTABLISHMENT GUIDE-PRODUCTION DIRECTOR [address] [place] [address] documented as of this encounter Visit Diagnoses Not on filedocumented in this encounter Care Teams Protective Service Specialist Relationship Specialty Start Date End Date Eliceo Gómez DO [address] [place] [address] PCP - General Family Medicine 04/04/23 Eliceo Gómez DO [address] [place] [address] PCP - [facility] 05/06/23 Beata Hernandez PA [address] [place] [address] Dietitian Nutrition 08/08/23 05/16/24 Juan Damico DO [address] [place] [address] Referring Physician Obstetrics and Gynecology 05/20/24 documented as of this encounter
--- OUTSIDE RECORDS SUMMARY | 2025-07-30 07:44 | XMS_ITS | Encounter Summary ---
Author Organization [email or web address] Sys tem Address [facility]-[id number] [address] [place] [address] Care Team Providers Care Internal Controls Consultant Name Role Phone Dalia Morales DO, George R Primary Care Provider + Encounter Details Date Type Department Care Team (Late st Contact Info) Description 10/18/2023 [facility] [address] [place] [address] Kim Acharya RN Social History [...] I got a message [facility]osef [facility] about a denial for Inspire from [facility]. It was apparently denied because the med notes don't clarify why she stopped using the CPAP and they needed further clarification. We can do [id number] once we have the information. There is a string of telephone encounters in [facility] from 03/02/23, where we had recommended [...] documentation after call was ended. Will send [employer] message with additional information needed. * Telephone Encounter - Kim Acharya RN - 10/18/2023 11:34 AM EST Patient responded to [employer] message stating that Dr. Todd Noe had [...] will draft appeal letter and fax to [employer] once completed. * Telephone Encounter - Kim Acharya RN - 10/18/2023 11:34 AM EST Appeal letter written and faxed to [employer] and appeals. Will wait response [...] Apnea Device. She can be reached at [phone] * Telephone Encounter - Kim Acharya RN - 10/18/2023 11:34 AM EST Called to check status of appeal but had to leave VM with department asking for call back regarding appeal. * Telephone Encounter - Kim Acharya RN - 10/18/2023 11:34 AM EST Received transferred call from Tracie at [employer]. She stated she does not see RN's appeal that was sent for Inspire on 10/19. RN verified fax # that was on letter that RN sent letter to. She stated she has a fax # to be sent that is [phone]. RN stated will try to refax letter to new fax #. She also provided secondary fax # of [phone]. RN faxed appeal to both #s listed above. Sent patient message via [employer] with update. Received fax confirmation on both #s * Telephone Encounter - Kim Acharya RN - 10/18/2023 11:34 AM EST RN received fax from [employer] stating that they received appeal for Inspire but it needs to be sent via mail. RN sent all appeal information to [employer] as listed on the fax and placed in outgoing mail. * Telephone Encounter - Kim Acharya RN - 10/18/2023 11:34 AM EST Received letter in mail from [employer] stating that it appears this is a post appeal dispute and needs to be sent to correct address . RN marked on letter that service has not been completed until approved so this is a pre service appeal and that was the address that appeal was sent to. Also marked that this needs to marked as urgent since [employer] has provided misinformation to our office on many occasions and we need to not delay patient care any further. * Telephone Encounter - Kim Acharya RN - 10/18/2023 11:34 AM EST RN had email from [employer] [facility] stating approval came through for device after faxing to # provided by [facility] for appeals. Letter scanned in under media. RN informed patient via [employer] documented in this encounter Plan of Treatment Upcoming Encounters Date Type Department Care Team (Late st Contact Info) Description 08/18/2025 9:15 AM EDT Appointment [facility] - MRI Imaging [address] [place] [address] 08/18/2025 9:45 AM EDT Appointment [facility] - MRI Imaging [address] [place] [address] 08/19/2025 3:30 PM EDT Office Visit [facility] Neurology, A Department of [address] [place] [address] Pauline Christensen MD [address] [place] [address] 101, [address], [address] [place] [address] 10/08/2025 9:15 AM EST Appointment [facility] - Neurophysiology [address] [place] [address] [address] [place] [address] 10/14/2025 8:00 AM EST Office Visit [facility] Neurology, A Department of [address], [address] [place] [address] Justin Bhat MD [address] [place] [address] 101, [address], [address] [place] [address] documented as of this encounter Visit Diagnoses Not on filedocumented in this encounter Additional Health Concerns Assessment Noted Time PHQ-9 Depression Total Score: 0 01/27/20 23 1:28 PM EDT documented as of this encounter Care Teams Internal Controls Consultant Relationship Specialty Start Date End Date Eliceo Gómez Jr., DO [address] [facility], [address] [place] [address] PCP - General Family Medicine 12/11/19 Jenna Butler [address] Consulting Physician Behavioral Health 12/20/23 documented as of this encounter
--- OUTSIDE RECORDS SUMMARY | 2025-07-30 07:44 | XMS_ITS | Encounter Summary ---
Author Organization [employer] Address [facility]-[id number] [address] [place] [address] Care Team Providers Care User Experience Designer Name Role Phone Dalia Morales DO, George R Primary Care Provider + Encounter Details Date Type Department Care Team (Late st Contact Info) Description 07/11/2023 Telephone [facility] [address] [facility] [address] [address] Cullen Dawkins MD [address] [place] [address] [address] [place], [place] [id number] Social History Tobacco Use Types Packs/Day Years [...] after surgery? 1-2 weeks Additional Comments: Yosef Paklong documented in this encounter Plan of Treatment Upcoming Encounters Date Type Department Care Team (Late st Contact Info) Description 08/18/2025 9:15 AM EDT Appointment [facility] - MRI Imaging [address] [place] [address] 08/18/2025 9:45 AM EDT Appointment [facility] - MRI Imaging [address] [place] [address] 08/19/2025 3:30 PM EDT Office Visit [facility] Neurology, A Department of [address] [place] [address] Pauline Christensen MD [address] [place] [address] 101, [address], [address] [place] [address] 10/08/2025 9:15 AM EST Appointment [facility] - Neurophysiology [address] [place] [address] [address] [place] [address] 10/14/2025 8:00 AM EST Office Visit [facility] Neurology, A Department of [address], [address], [address] [place] [address] Justin Bhat MD [address] [place] [address] 101, [address], [address] [place] [address] documented as of this encounter Visit Diagnoses Not on filedocumented in this encounter Additional Health Concerns Assessment Noted Time PHQ-9 Depression Total Score: 0 01/27/20 23 1:28 PM EDT documented as of this encounter Care Teams User Experience Designer Relationship Specialty Start Date End Date Eliceo Gómez Jr., [address] [place] [address], [address], [place] [address] PCP - General Family Medicine 12/11/19 Jenna Butler [address] Consulting Physician Behavioral Health 12/20/23 documented as of this encounter
--- OUTSIDE RECORDS SUMMARY | 2025-07-30 07:44 | XMS_ITS | Encounter Summary ---
Author Organization [facility] Address [address] [place] [address] Care Team Providers Care Trouble Lineman Name Role Phone Eliceo Gómez DO Primary Care Provider [phone] Juan Damico DO Unavailable [phone] Encounter Details Date Type Department Care Team (Latest Contact Info) Description 07/16/2025 Results Follow-Up [facility] [address] [place] [address] Wendy Colon MA Bilateral screening mammogram with tomosynthesis Social History Tobacco Use Types Packs/Day Years [...] attend chur ch or restoration services? Never 06/04/2025 Do you belong to [...] Recorded Patient Health Questionnaire-2 Score 0 06/24/2025 [facility] of Occupat [...] living in a correction (including now)? No 06/04/2025 Comments No Sex [...] Description 08/27/2025 3:50 PM EDT Office Visit [facility] [address] [place] [address] Adriana Cruz MD [address] [place] [address] 11/20/2025 8:30 AM EST Office Visit [facility] [address] [place] [address] Nelsy Harris APRN-RETAIL MANAGER [address] [place] [address] documented as of this encounter Visit Diagnoses Not on filedocumented in this encounter Additional Health Concerns Assessment Noted Time PHQ-9 Depression Total Score: 0 01/21/20 25 1:00 PM EDT documented as of this encounter Care Teams Trouble Lineman Relationship Specialty Start Date End Date Eliceo Gómez DO [address] [place] [address] PCP - General Family Medicine 04/04/23 Juan Damcio DO [address] [place] [address] Referring Physician Obstetrics and Gynecology 05/20/24 documented as of this encounter
--- OUTSIDE RECORDS SUMMARY | 2025-07-30 07:44 | XMS_ITS | Encounter Summary ---
Author Organization [facility] tem Address [facility]-[id number] [address] [place] [address] Care Team Providers Care Tissue Packer Name Role Phone Dalia Morales DO, George R Primary Care Provider + Reason for Visit * Reason Onset Date Comments sooner appointment 05/20/2025 Encounter Details Date Type Department Care Team (Late st Contact Info) Description 05/20/2025 Telephone [facility] Neurology, A Department of [facility] [address] [facility] [address] [place] [address] Joanna Piper sooner appointment Social [...] Joanna Piper - 05/20/2025 10:38 AM EDT Principal Security Architect received a call from patient regarding appointment. Patient stated would like a sooner appointment if possible. Patient did not provide any further explanation other than she would just like to be seen sooner. Please advise. Contact info Mary [phone]. Thank you so much. * Telephone Encounter [...] Info) Description 08/18/2025 9:15 AM EDT Appointment [facility] - MRI Imaging [address] [place] [address] 08/18/2025 9:45 AM EDT Appointment [facility] - MRI Imaging [address] [place] [address] 08/19/2025 3:30 PM EDT Office Visit [facility], A Department of [address], [address] [place] [address] Pauline Christensen MD [address] [place] [address] [address], [address], [address] [place] [address] 10/08/2025 9:15 AM EST Appointment [facility] - Neurophysiology [address] [place] [address] [address] [place] [address] 10/14/2025 8:00 AM EST Office Visit [facility] Neurology, A Department of [address], [address], [address] [place] [address] Justin Bhat MD [address] [place] [address] 101, [address], [address] [place] [address] documented as of this encounter Visit Diagnoses Not on filedocumented in this encounter Additional Health Concerns Assessment Noted Time PHQ-9 Depression Total Score: 0 10/23/20 23 1:26 PM EST documented as of this encounter Care Teams Tissue Packer Relationship Specialty Start Date End Date Eliceo Gómez Jr., [address] [place] [address], [address] [place] [address] PCP - General Family Medicine 12/11/19 Jenna Butler [address] Consulting Physician Behavioral Health 12/20/23 documented as of this encounter
--- OUTSIDE RECORDS SUMMARY | 2025-07-30 07:44 | XMS_ITS | Encounter Summary ---
Author Organization [facility] Address [address] [place] [address] Care Team Providers Care Insurance Claims Assistant Name Role Phone Eliceo Gómez DO Primary Care Provider Eliceo Gómez DO Unavailable [phone] Beata Hernandez Unavailable Juan Damico DO Unavailable [phone] Encounter Details Date Type Department Care Team (Late st Contact Info) Description 06/07/2023 Orders Only [facility] [place] [facility] [address] [place] [address] A, Unknown Practice [address] [place] [address] Social History Tobacco Use Types [...] How often do you attend chur or religion services? Never 04/14/2023 Do you belong to [...] Recorded Patient Health Questionnaire-2 Score 0 06/08/2023 [facility] of Occupat ional Health - [...] [address] [place] [address] Adriana Cruz MD [address] [place] [address] 11/20/2025 8:30 AM EST Office Visit [facility] [place] [facility] [address] [place] [address] Nelsy Harris, EDGING MACHINE OPERATOR-CROWN PRESSER [address] [place], [place] [address] documented as of this encounter Procedures Procedure [...] on filedocumented in this encounter Care Teams Insurance Claims Assistant Relationship Specialty Start Date End Date Eliceo Gómez DO [address] [place] [address] PCP - General Family Medicine 04/04/23 Eliceo Gómez DO [address] [place] [address] PCP - [facility] 05/06/23 Beata Hernandez PA [address] [place] [address] Dietitian Nutrition 08/08/23 05/16/24 Juan Damico DO [address] [place] [address] Referring Physician Obstetrics and Gynecology 05/20/24 documented as of this encounter
--- OUTSIDE RECORDS SUMMARY | 2025-07-30 07:44 | XMS_ITS | Encounter Summary ---
Author Organization [employer] Address [facility][id number] [address] [place] [address] Care Team Providers Care Can Sealer Name Role Phone Dalia Morales DO, George R Primary Care Provider + Encounter Details Date Type Department Care Team (Late st Contact Info) Description 12/26/2023 [facility] [address] [place] [address] April Mccarty Social History Tobacco [...] 12/26/2023 12:28 PM EST Patient also sent [employer] message regarding the matter. RN sent on [...] down. Please call back and advise, callback#: [phone]. * Telephone Encounter - Pauline Christensen MD - 12/26/2023 12:28 PM EST I will have Yosef the Inspire Rep call her. Thank you documented in this encounter Plan of Treatment Upcoming Encounters Date Type Department Care Team (Late st Contact Info) Description 08/18/2025 9:[address] [facility] - MRI Imaging [address] [place] [address] 08/18/2025 9:[address] [facility] - MRI Imaging [address] [place] [address] 08/19/2025 3:30 PM EDT Office Visit [facility] Neurology, A Department of [address], [address] [place] [address] Pauline Christensen MD [address] [place] [address] 101, [address], [address] [place] [address] 10/08/2025 9:15 AM EST Appointment [facility]science Center - Neurophysiology [address] [place] [address] [address] [place] [address] 10/14/2025 8:00 AM EST Office Visit [facility] Neurology, A Department of [address], [address], [address] [place] [address] Justin Bhat MD [address] [place] [address] 101, [address], [address] [place] [address] documented as of this encounter Visit Diagnoses Not on filedocumented in this encounter Additional Health Concerns Assessment Noted Time PHQ-9 Depression Total Score: 0 10/23/20 23 1:26 PM EST documented as of this encounter Care Teams Can Sealer Relationship Specialty Start Date End Date Eliceo Gómez Jr., [address] [place] [address], [address] [place] [address] PCP - General Family Medicine 12/11/19 Jenna Butler [address] Consulting Physician Behavioral Health 12/20/23 documented as of this encounter
--- OUTSIDE RECORDS SUMMARY | 2025-07-30 07:44 | XMS_ITS | Encounter Summary ---
Author Organization [employer] Address [facility]-[id number] [address] [place] [address] Care Team Providers Care Mva Operator Name Role Phone Dalia Morales DO, George R Primary Care Provider + Encounter Details Date Type Department Care Team (Late st Contact Info) Description 10/03/2023 [facility] [address] [place] [address] Kim Acharya RN Social History [...] to patient since he was contacted by [facility] stating patient was reaching out [...] Info) Description 08/18/2025 9:15 AM EDT Appointment [facility] - MRI Imaging [address] [place] [address] 08/18/2025 9:45 AM EDT Appointment [facility] - MRI Imaging [address] [place] [address] 08/19/2025 3:30 PM EDT Office Visit [facility] Neurology, A Department of [address], [address] [place] [address] Pauline Christensen MD [address] [place] [address] 101, [address], [address] [place] [address] 10/08/2025 9:15 AM EST Appointment [facility]science Center - Neurophysiology [address] [place] [address] [address] [place] [address] 10/14/2025 8:00 AM EST Office Visit [facility] Neurology, A Department of [address], [address], [address] [place] [address] Justin Bhat MD [address] [place] [address] 101, [address], [address] [place] [address] documented as of this encounter Visit Diagnoses Not on filedocumented in this encounter Additional Health Concerns Assessment Noted Time PHQ-9 Depression Total Score: 0 01/27/20 23 1:28 PM EDT documented as of this encounter Care Teams Mva Operator Relationship Specialty Start Date End Date Eliceo Gómez Jr., [address] [facility], [address] [place] [address] PCP - General Family Medicine 12/11/19 Jenna Butler [address] Consulting Physician Behavioral Health 12/20/23 documented as of this encounter
--- OUTSIDE RECORDS SUMMARY | 2025-07-30 07:44 | XMS_ITS | Encounter Summary ---
Author Organization [facility] Address [address] [place] [address] Care Team Providers Care Shot Lighter Name Role Phone Eliceo Gómez DO Primary Care Provider [phone] Eliceo Gómez DO Unavailable [phone] Beata Hernandez Unavailable Juan Damico DO Unavailable [phone] Encounter Details Date Type Department Care Team (Late st Contact Info) Description 07/25/2023 Orders Only [facility] [place] [facility] [address] [place] [address] A, Unknown Practice [address] [place] [address] Social History Tobacco Use Types Packs/Day Years [...] Recorded Patient Health Questionnaire-2 Score 0 07/06/2023 [facility] of Occupat ional [...] MD [address] [place] [address] 11/20/2025 8:30 AM EST Office Visit [facility] [address] [place] [address] Nelsy Harris, LAB NURSE-REFERRAL SPECIALIST [address] [place] [address] documented as of this encounter Procedures Procedure Name Priority Date/Time Associated Diagnosis Comments ESOPHAGOSCOPY Routine 07/25/2023 3:25 PM EDT documented in this encounter Results * Esophagoscopy (07/25/2023 3:25 PM EDT) Anatomical Region Laterality Modality Endoscopy us Unknown Practice A ENDOSCOPY PROCEDURE ORDERABLE S Final Result documented in this encounter Visit Diagnoses Not on filedocumented in this encounter Care Teams Shot Lighter Relationship Specialty Start Date End Date Eliceo Gómez DO [address] [place] [address] PCP - General Family Medicine 04/04/23 Eliceo Gómez DO [address] [place] [address] PCP - [facility] 05/06/23 Beata Hernandez PA [address] [place] [address] Dietitian Nutrition 08/08/23 05/16/24 Juan Damico DO [address] [place] [address] Referring Physician Obstetrics and Gynecology 05/20/24 documented as of this encounter
--- OUTSIDE RECORDS SUMMARY | 2025-07-30 07:44 | XMS_ITS | Encounter Summary ---
Author Organization [facility] Address [address] [facility] [place] [address] Care Team Providers Care Leadership Intern Name Role Phone Eliceo Gómez DO Primary Care Provider [phone] Juan Damico DO Unavailable [phone] Encounter Details Date Type Department Care Team (Late st Contact Info) Description 06/25/2025 Abstract [facility] [place] [facility] [address] [facility] [address] [place] [address] Eliceo Gómez DO [address] [facility] [address] [place] [address] Social History Tobacco Use Types [...] attend chur ch or methodist services? Never 06/04/2025 Do you belong to [...] Recorded Patient Health Questionnaire-2 Score 0 06/24/2025 [facility] of Occupat ional Health - Occupational [...] living in a half-way (including now)? No 06/04/2025 Comments No Sex [...] 08/27/2025 3:50 PM EDT Office Visit [facility] [address] [place] [address] Adriana Cruz MD [address] [place] [address] 11/20/2025 8:30 AM EST Office Visit [facility] [address] [place] [address] Nelsy Harris, VETERINARY RADIOLOGIST-ENVIRONMENTAL SERVICES FLOOR TECH [address] [place] [address] documented as of this encounter Visit Diagnoses Not on filedocumented in this encounter Additional Health Concerns Assessment Noted Time PHQ-9 Depression Total Score: 0 01/21/20 25 1:00 PM EDT documented as of this encounter Care Teams Leadership Intern Relationship Specialty Start Date End Date Eliceo Gómez DO [address] [place] [address] PCP - General Family Medicine 04/04/23 Juan Damico DO [address] [place] [address] Referring Physician Obstetrics and Gynecology 05/20/24 documented as of this encounter
--- OUTSIDE RECORDS SUMMARY | 2025-07-30 07:44 | XMS_ITS | Encounter Summary ---
Author Organization [facility] Address [address] [place] [address] Care Team Providers Care Cisco Network Engineer Name Role Phone Eliceo Gómez DO Primary Care Provider Eliceo Gómez DO Unavailable [phone] Hernandez Unavailable Juan Damico DO Unavailable [phone] Encounter Details Date Type Department Care Team (Late st Contact Info) Description 06/21/2023 Abstract [facility] [place] [facility] [address] [facility] [address] [place] [address] Eliceo Gómez DO [address] [email or web address] [address] [place] [address] Social History Tobacco Use Types Packs/Day Years [...] Recorded Patient Health Questionnaire-2 Score 0 06/08/2023 [facility] of Occupat ional Health - Occupational [...] [address] [place] [address] Adriana Cruz MD [address] [place] [address] 11/20/2025 8:30 AM EST Office Visit [facility] [address] [place] [address] Nelsy Harris, COMMUNITY SUPPORT SPECIALIST-BELT MEASURER [address] [place] [address] documented as of this encounter Visit Diagnoses Not on filedocumented in this encounter Care Teams Cisco Network Engineer Relationship Specialty Start Date End Date Eliceo Gómez, [address] [place] [address] PCP - General Family Medicine 04/04/23 Eliceo Gómez, DO [address] [place] [address] PCP - [facility] 05/06/23 Beata Hernandez PA [address] [place] [address] Dietitian Nutrition 08/08/23 05/16/24 Juan Damico, [address] [place] [address] Referring Physician Obstetrics and Gynecology 05/20/24 documented as of this encounter
--- OUTSIDE RECORDS SUMMARY | 2025-07-30 07:44 | XMS_ITS | Encounter Summary ---
Author Organization [facility] Address [address] [facility] [place] [address] Care Team Providers Care Advanced Practice Registered Nurse Name Role Phone Eliceo Gómez DO Primary Care Provider [phone] Eliceo Gómez DO Unavailable [phone] Beata Hernandez Unavailable Juan Damico DO Unavailable [phone] Encounter Details Date Type Department Care Team (Late st Contact Info) Description 01/24/2024 Abstract [facility] [place] [facility] [address] [facility] [address] [place] [address] Eliceo Gómez DO [address] [facility] [address] [facility] [address] [place] [address] Social History Tobacco Use Types Packs/Day Years [...] Score 0 10/03/2023 [facility] Occupat ional Health [...] [address] [place] [address] Nelsy Harris, REAMING MACHINE TENDER-SIZING MACHINE TENDER [address] [place] [address] documented as of this encounter Visit Diagnoses Not on filedocumented in this encounter Care Teams Advanced Practice Registered Nurse Relationship Specialty Start Date End Date Eliceo Gómez DO [address] [place] [address] PCP - General Family Medicine 04/04/23 Eliceo Gómez DO [address] [place] [address] PCP - [facility] 05/06/23 Beata Hernandez PA [address] [place] [address] Dietitian Nutrition 08/08/23 05/16/24 Juan Damico DO [address] [place] [address] Referring Physician Obstetrics and Gynecology 05/20/24 documented as of this encounter
--- OUTSIDE RECORDS SUMMARY | 2025-07-30 07:44 | XMS_ITS | Encounter Summary ---
Author Organization [facility] Address [address] [facility] [place] [address] Care Team Providers Care Tobacco Baler Name Role Phone StephonEliceo vilchis Asiya DO Primary Care Provider [phone] Eliceo Gómez DO Unavailable [phone] Beata Hernandez Unavailable Juan Damico DO Unavailable [phone] Encounter Details Date Type Department Care Team (Late st Contact Info) Description 06/20/2023 Abstract [facility] [place] [facility] [address] [facility] [address] [place] [address] Juan Damico, [address] [facility] [address] [place] [address] Social History Tobacco Use Types Packs/Day Years [...] Score 0 06/08/2023 [facility] of Occupat ional Health [...] slept in a fdc (including now)? No 04/14/2023 Comments No Sex [...] [address] [place] [address] Adriana Cruz MD [address] [place] [address] 11/20/2025 8:30 AM EST Office Visit [facility] [address] [place] [address] Felter, Nelsy A, HARDWARE ENGINEERING MANAGER-FIBER OPTICS SUPERVISOR [address] [place] [address] documented as of this encounter Visit Diagnoses Not on filedocumented in this encounter Care Teams Tobacco Baler Relationship Specialty Start Date End Date Eliceo Gómez, DO [address] [place] [address] PCP - General Family Medicine 04/04/23 Eliceo Gómez, DO [address] [place] [address] PCP - [facility] 05/06/23 Beata Hernandez PA [address] [place] [address] Dietitian Nutrition 08/08/23 05/16/24 Juan Damico, [address] [place] [address] Referring Physician Obstetrics and Gynecology 05/20/24 documented as of this encounter
--- OUTSIDE RECORDS SUMMARY | 2025-07-30 07:44 | XMS_ITS | Encounter Summary ---
Author Organization [facility] Address [address] [place] [address] Care Team Providers Care Quality Control Scientist Name Role Phone Eliceo Gómez DO Primary Care Provider [phone] Eliceo Gómez DO Unavailable [phone] Beata Hernandez Unavailable Juan Damico DO Unavailable [phone] Encounter Details Date Type Department Care Team (Late st Contact Info) Description 06/28/2023 Orders Only [facility] [place] [facility] [address] [place] [address] A, Unknown Practice [address] [place] [address] Social History Tobacco Use Types [...] Recorded Patient Health Questionnaire-2 Score 0 06/08/2023 [facility] of Occupat ional Health - [...] MD [address] [place] [address] 11/20/2025 8:30 AM EST Office Visit [facility] [address] [place] [address] Nelsy Harris, NEONATAL NURSE-TELEPHONE PLANT POWER OPERATOR [address] [place] [address] documented as of this encounter Procedures Procedure [...] in this encounter Care Teams Quality Control Scientist Relationship Specialty Start Date End Date Eliceo Gómez DO [address] [facility] [address] [place] [address] PCP - General Family Medicine 04/04/23 Eliceo Gómez DO [address] [facility] [address] [place] [address] PCP - [facility] 05/06/23 Beata Hernandez PA [address] [facility] [address] [place] [address] Dietitian Nutrition 08/08/23 05/16/24 Juan Damico DO [address] [place] [address] Referring Physician Obstetrics and Gynecology 05/20/24 documented as of this encounter
--- OUTSIDE RECORDS SUMMARY | 2025-07-30 07:44 | XMS_ITS | Encounter Summary ---
Author Organization [facility] Address [address] [place] [address] Care Team Providers Care Club Car Attendant Name Role Phone Eliceo Gómez DO Primary Care Provider [phone] Eliceo Gómez DO Unavailable [phone] Juan Damico DO Unavailable [phone] Encounter Details Date Type Department Care Team [...] Recorded Patient Health Questionnaire-2 Score 0 07/11/2024 [facility] of Occupat ional Health - Occupational [...] Dermatology [address] [place] [address] Adriana Cruz MD [address] [place] [address] 11/20/2025 8:30 AM EST Office Visit [facility] [place] [facility] [address] [place] [address] Nelsy Harris, TRAIL MAINTENANCE WORKER-MANAGER ADMINISTRATION [address] [place] [address] documented as of this encounter Procedures Procedure Name Priority Date/Time Associated Diagnosis Comments XR FOOT RT MIN 3V 10/03/2024 9:2 5 AM EST documented in this encounter Results * XR FOOT RT MIN 3V (10/03/2024 9:25 AM EST) Anatomical Region Laterality Modality Other 10/03/2024 9:25 AM EST Narrative 10/03/2024 9:28 AM EST [address] [address] XRay Report Signed Patient: MARY FUENTES MR#: [id number] : 1970 Acct:[id number] Age/Sex: 54 / F ADM Date: 10/01/24 Loc: RAD Attending Dr: Sade Felix D.P.M. Ordering Physician: Sade Felix D.P.M. Date of Service: 10/01/24 Procedure(s): XR foot RT min 3V Accession Number(s): [id number] cc: Sade Felix D.P.M.; Isatu GÓMEZ [address] [address] Patient Name: MARY FUENTES MRN: [id number] date: 1970 Sex: F Assigned Patient Location: [facility] Current Patient Location: RAD Accession/Order Number: [id number] Exam Date: 10/01/2024 07:45 Report Date: 10/03/2024 [...] M.D. Signed By: 10/03/24927 DD/ 4 TD/TT: Layaway Clerk: Procedure Note Radiology, Radiologist, MD - 10/03/2024 [place] [address] XRay Report Signed Patient: MARY FUENTES DMR#: [id number] : 1970Acct:[id number] Age/Sex: 54 / FADM Date: 10/01/24 Loc: RAD Attending Dr: Sade Felix D.P.M. Ordering Physician: Sade Felix D.P.M. Date of Service: 10/01/24 Procedure(s): XR foot RT min 3V Accession Number(s): [id number] cc: Sade Felix D.P.M.; Isatu GÓMEZ [place] [address] Patient Name: MARY FUENTES MRN: [id number] date: 1970 Sex: F Assigned Patient Location: [facility] Current Patient Location: [facility] Accession/Order Number: [id number] Exam Date: 10/01/2024 07:45 Report Date: 10/03/2024 [...] Oliveros M.D. Signed By:10/03/24927 DD/ 4 TD/TT: Layaway Clerk: us Generic External Data Provider [facility] Final Result documented in this encounter Visit Diagnoses Not on filedocumented in this encounter Care Teams Club Car Attendant Relationship Specialty Start Date End Date Eliceo Gómez DO [address] [place] [address] PCP - General Family Medicine 04/04/23 Eliceo Gómez DO [address] [place] [address] PCP - [facility] 05/06/23 Juan Damico DO [address] [place] [address] Referring Physician Obstetrics and Gynecology 05/20/24 documented as of this encounter
--- OUTSIDE RECORDS SUMMARY | 2025-07-30 07:44 | XMS_ITS | Encounter Summary ---
Author Organization [facility] Address [address] [place] [facility] [place] [address] Care Team Providers Care Banquet Captain Name Role Phone Eliceo Gómez DO Primary Care Provider [phone] Eliceo Gómez DO Unavailable [phone] Beata Hernandez Unavailable Juan Damico DO Unavailable [phone] Encounter Details Date Type Department Care Team (Late st Contact Info) Description 05/22/2023 Orders Only [facility] [place] [facility] [address] [facility] [address] [place] [address] Eliceo Gómez, [address] [place] [address] Social History Tobacco Use Types Packs/Day Years [...] Recorded Patient Health Questionnaire-2 Score 0 04/06/2023 [facility] of Occupat ional Health - Occupational Stress [...] [address] [place] [address] Felter, Nelsy A, PERSONNEL WORKER-CERTIFIED MEDICAL BILLER [address] [place] [address] documented as of this encounter Procedures Procedure [...] on filedocumented in this encounter Care Teams Banquet Captain Relationship Specialty Start Date End Date Eliceo Gómez DO [address] [place] [address] PCP - General Family Medicine 04/04/23 Eliceo Gómez DO [address] [place] [address] PCP - [facility] 05/06/23 Beata Hernandez PA [address] [place] [address] Dietitian Nutrition 08/08/23 05/16/24 Juan Damico DO [address] [place] [address] Referring Physician Obstetrics and Gynecology 05/20/24 documented as of this encounter
--- OUTSIDE RECORDS SUMMARY | 2025-07-30 07:44 | XMS_ITS | Encounter Summary ---
Author Organization [facility] Address [address] [place] [address] Care Team Providers Care Toy Mechanic Name Role Phone Eliceo Gómez DO Primary Care Provider [phone] Juan Damico DO Unavailable [phone] Encounter Details Date Type Department Care Team (Latest Contact Info) Description 07/14/2025 [facility] [address] [facility] [address] [place] [address] Chantale Sweet PA [address] [facility] [address] [place] [address] Dermatopathology exam Social History Tobacco Use Types Packs/Day Years [...] attend chur or jehovah's witness services? Never 06/04/2025 Do you belong to [...] Recorded Patient Health Questionnaire-2 Score 0 06/24/2025 [facility] Questionnaire Answer [...] any time in the past 12 m [facility], were you homeless or [...] Dermatology [address] [place] [address] Adriana Cruz MD [address] [place] [address] 11/20/2025 8:30 AM EST Office Visit [facility] [address] [place] [address] Nelsy Harris, SUPERVISOR PASTE PLANT-CENTER MEDICAL AND LAB DIRECTOR [address] [place] [address] documented as of this encounter Visit Diagnoses Not on filedocumented in this encounter Additional Health Concerns Assessment Noted Time PHQ-9 Depression Total Score: 0 01/21/20 25 1:00 PM EDT documented as of this encounter Care Teams Toy Mechanic Relationship Specialty Start Date End Date Eliceo Gómez DO [address] [place] [address] PCP - General Family Medicine 04/04/23 Juan Damico DO [address] [place] [address] Referring Physician Obstetrics and Gynecology 05/20/24 documented as of this encounter
--- OUTSIDE RECORDS SUMMARY | 2025-07-30 07:44 | XMS_ITS | Encounter Summary ---
Author Organization [facility] Address [address] [facility] [place] [address] Care Team Providers Care Head Bookkeeper Name Role Phone Eliceo Gómez DO Primary Care Provider [phone] Eliceo Gómez DO Unavailable [phone] Juan Damico DO Unavailable [phone] Encounter Details Date Type Department Care Team (Late st Contact Info) Description 10/14/2024 Abstract [facility] [place] [facility] [address] [facility] [address] [place] [address] Eliceo Gómez DO [address] [facility] [address] [place], [place] [address] Social History Tobacco Use Types Packs/Day Years [...] attend chur ch or confucianism services? Never 05/01/2024 Do you [...] Patient Health Questionnaire-2 Score 0 07/11/2024 [facility] of Occupat ional Health - Occupational Stress [...] Dermatology [address] [place] [address] Adriana Cruz MD [address] [place] [address] 11/20/2025 8:30 AM EST Office Visit [facility] [address] [place] [address] Nelsy Harris, BLINDSTITCH HEMMER-DIRECTOR OF ROTC [address] [place] [address] documented as of this encounter Visit Diagnoses Not on filedocumented in this encounter Care Teams Head Bookkeeper Relationship Specialty Start Date End Date Eliceo Gómez DO [address] [place] [address] PCP - General Family Medicine 04/04/23 Eliceo Gómez DO [address] [place] [address] PCP - [facility] 05/06/23 Juan Damico DO [address] [place] [address] Referring Physician Obstetrics and Gynecology 05/20/24 documented as of this encounter
--- OUTSIDE RECORDS SUMMARY | 2025-07-30 07:44 | XMS_ITS | Encounter Summary ---
Author Organization [facility] Address [id number] [address] 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 Art: [email or web address] faxed to plan , waiting a response documented in this encounter Plan of Treatment Upcoming Encounters Date Type Department Care Team (Late st Contact Info) Description 08/18/2025 9:15 AM EDT Appointment [facility] - MRI Imaging [address] [place] [address] 08/18/2025 9:45 AM EDT Appointment [facility] - MRI Imaging [address] [place] [address] 08/19/2025 3:30 PM EDT Office Visit [facility], A Department of [address] [place] [address] Pauline Christensen MD [address] [place] [address] [address], [address] [place] [address] 10/08/2025 9:15 AM EST Appointment [facility] - Neurophysiology [address] [place] [address] [address] [place] [address] 10/14/2025 8:00 AM EST Office Visit [facility], A Department of [address] [place] [address] Justin Bhat MD [address] [place] [address] 101, [address] [place] [address] documented as of this encounter Visit Diagnoses Not on filedocumented in this encounter Additional Health Concerns Assessment Noted Time PHQ-9 Depression Total Score: 0 01/27/20 23 1:28 PM EDT documented as of this encounter Care Teams Cook Morning Relationship Specialty Start Date End Date Eliceo Gómez Jr., [address] [place] [address], [address], [place] [address] PCP - General Family Medicine 12/11/19 Jenna Butler [address] [place] [address] Consulting Physician Behavioral Health 12/20/23 documented as of this encounter
--- OUTSIDE RECORDS SUMMARY | 2025-07-30 07:44 | XMS_ITS | Encounter Summary ---
Author Organization [facility] Address [address] [place] [address] Care Team Providers Care Residential Sales Rep Name Role Phone Eliceo Gómez DO Primary Care Provider Eliceo Gómez DO Unavailable [phone] Beata Hernandez Unavailable Juan Damico DO Unavailable [phone] Encounter Details Date Type Department Care Team (Late st Contact Info) Description 06/12/2023 Orders Only [facility] [place] [facility] [address] [place] [address] A, Unknown Practice [address] [place] [address] Social History Tobacco Use Types Packs/Day Years [...] you attend chur or sikh services? Never 04/14/2023 Do you [...] Recorded Patient Health Questionnaire-2 Score 0 06/08/2023 [facility] of Occupat ional [...] MD [address] [place] [address] 11/20/2025 8:30 AM EST Office Visit [facility] [address] [place] [address] Nelsy Harris, LEAD SOFTWARE ARCHITECT-ANIMAL PHYSIOLOGY TEACHER [address] [place] [address] documented as of this encounter Procedures Procedure [...] on filedocumented in this encounter Care Teams Residential Sales Rep Relationship Specialty Start Date End Date Eliceo Gómez DO [address] [facility] [address] [address] [place] [address] PCP - General Family Medicine 04/04/23 Eliceo Gómez DO [address] [facility] [address] [place] [address] PCP - [facility] 05/06/23 Beata Hernandez PA [address] [place] [address] Dietitian Nutrition 08/08/23 05/16/24 Juan Damico DO [address] [place] [address] Referring Physician Obstetrics and Gynecology 05/20/24 documented as of this encounter
--- OUTSIDE RECORDS SUMMARY | 2025-07-30 07:44 | XMS_ITS | Encounter Summary ---
Author Organization [facility] Address [address] [place] [address] Care Team Providers Care Parallel Computing Software Engineer Name Role Phone Eliceo Gómez DO Primary Care Provider [phone] Eliceo Gómez DO Unavailable [phone] Beata Hernandez Unavailable Juan Damico DO Unavailable [phone] Encounter Details Date Type Department Care Team (Late st Contact Info) Description 05/18/2023 Orders Only [facility] [place] [facility] [address] [facility] [address] [place] [address] Provider, MD Pilo [address] [place] [address] Social History Tobacco Use Types Packs/Day [...] often do you attend chur ch or synagogue services? Never 04/14/2023 Do you [...] 04/06/2023 [facility] of Occupat ional [facility] - Occupational Stress Questionnaire Answer Date [...] [address] [place] [address] Adriana Cruz MD [address] [place] [address] 11/20/2025 8:30 AM EST Office Visit [facility] [address] [place] [address] Nelsy Harris, FLAT SORTING MACHINE CLERK-FIRE EXTINGUISHER REPAIRER INSPECTOR [address] [place] [address] documented as of this encounter Procedures Procedure Name Priority Date/Time Associated Diagnosis Comments XR CHEST 1 VIEW Routine 05/18/2023 9:[address] FOOT RIGHT W CONTRAST [id number] Routine 05/18/2023 9:07 AM EDT XR FOOT 3+ VIEWS RIGHT Routine 05/18/2023 8:25 AM EDT documented in this encounter Results * XR chest 1 view (05/18/2023 9:19 AM EDT) Anatomical Region Laterality Modality Chest Radiographic Ira ging Historical Provider IMG XR PROCEDURES Final R esult * CT FOOT RIGHT W CONTRAST [id number] (05/18/2023 9:07 AM EDT) Anatomical Region Laterality Modality Radiographic Ira ging Historical Provider IMG XR PROCEDURES Final R esult * XR foot 3+ views right (05/18/2023 8:25 AM EDT) Anatomical Region Laterality Modality Lower Extremities, Foot Right Radiogra phic Imaging Historical Provider IMG XR PROCEDURES Final R esult documented in this encounter Visit Diagnoses Not on filedocumented in this encounter Care Teams Parallel Computing Software Engineer Relationship Specialty Start Date End Date Eliceo Gómez DO [address] [place] [address] PCP - General Family Medicine 04/04/23 Eliceo Gómez DO [address] [place] [address] PCP - [facility] 05/06/23 Beata Hernandez PA [address] [place] [address] Dietitian Nutrition 08/08/23 05/16/24 Juan Damico DO [address] [place] [address] Referring Physician Obstetrics and Gynecology 05/20/24 documented as of this encounter
--- OUTSIDE RECORDS SUMMARY | 2025-07-30 07:44 | XMS_ITS | Encounter Summary ---
Author Organization [facility] Address [address] [place] [facility] [place] [address] Care Team Providers Care Centrifugal Station Operator Name Role Phone Eliceo Gómez DO Primary Care Provider [phone] Eliceo Gómez DO Unavailable [phone] Beata Hernandez Unavailable Juan Damico DO Unavailable [phone] Encounter Details Date Type Department Care Team (Late st Contact Info) Description 07/11/2023 Abstract [facility] [place] [facility] [address] [facility] [address] [place] [address] Eliceo Gómez DO [address] [facility] [address] [place] [address] Social History Tobacco Use Types Packs/Day Years [...] Recorded Patient Health Questionnaire-2 Score 0 07/06/2023 [facility] of Occupat ional Health [...] [address] [place] [address] Adriana Cruz MD [address] [place] [address] 11/20/2025 8:30 AM EST Office Visit [facility] [address] [place] [address] Nelsy Harris, AIR CONDITIONER INSTALLER HELPER-NURSE HEAD [address] [place] [address] documented as of this encounter Visit Diagnoses Not on filedocumented in this encounter Care Teams Centrifugal Station Operator Relationship Specialty Start Date End Date Eliceo Gómez, [address] [place] [address] PCP - General Family Medicine 04/04/23 Eliceo Gómez, DO [address] [place] [address] PCP - [facility] 05/06/23 Beata Hernandez PA [address] [place] [address] Dietitian Nutrition 08/08/23 05/16/24 Juan Damico, [address] [place] [address] Referring Physician Obstetrics and Gynecology 05/20/24 documented as of this encounter
--- OUTSIDE RECORDS SUMMARY | 2025-07-30 07:44 | XMS_ITS | Encounter Summary ---
Author Organization [facility] tem Address [id number] [address] [place] [address] Care Team Providers Care Management Developer Name Role Phone Dalia Morales DO, George R Primary Care Provider + Encounter Details Date Type Department Care Team (Late st Contact Info) Description 09/19/2023 Telephone [facility] - [address], [address] [place] [address] Cullen Dawkins MD [address] [place] [address] [address] [place] [address] Social History Tobacco Use Types Packs/Day Years [...] Description 08/18/2025 9:15 AM EDT Appointment [facility] - MRI Imaging [address] [place] [address] 08/18/2025 9:45 AM EDT Appointment [facility] - MRI Imaging [address] [place] [address] 08/19/2025 3:30 PM EDT Office Visit [facility], A Department of [address] [place] [address] Pauline Christensen MD [address] [place] [address] [address] [place] [address] 10/08/2025 9:15 AM EST Appointment [facility] - Neurophysiology [address] [place] [address] [address] [place] [address] 10/14/2025 8:00 AM EST Office Visit [facility], A Department of [facility] [address] [place] [address] Justin Bhat MD [address] [place] [address] [address] [place] [address] documented as of this encounter Visit Diagnoses Not on filedocumented in this encounter Additional Health Concerns Assessment Noted Time PHQ-9 Depression Total Score: 0 01/27/20 23 1:28 PM EDT documented as of this encounter Care Teams Management Developer Relationship Specialty Start Date End Date Eliceo Gómez Jr., DO [address] [facility], [address] [place] [address] PCP - General Family Medicine 12/11/19 Jenna Butler [address] [place] [address] Consulting Physician Behavioral Health 12/20/23 documented as of this encounter
--- OUTSIDE RECORDS SUMMARY | 2025-07-30 07:45 | XMS_ITS | Encounter Summary ---
Author Organization [facility] Address [address] [place] [address] Care Team Providers Care Windows Server Support Technician Name Role Phone Eliceo Gómez DO Primary Care Provider [phone] Eliceo Gómez DO Unavailable [phone] Beata Hernandez Unavailable Juan Damico DO Unavailable [phone] Encounter Details Date Type Department Care Team (Late st Contact Info) Description 04/14/2023 Orders Only [facility] [place] [facility] [address] [place] [address] Jacob Felix MD [address] [place] [address] [place] [address] Social History Tobacco Use Types Packs/Day Years [...] senior care (including now)? No 04/14/2023 Comments Unknown Sex [...] [address] [place] [address] Adriana Cruz MD [address] [place] [address] 11/20/2025 8:30 AM EST Office Visit [facility] [address] [place] [address] Nelsy Harris, TIRE REBUILDER-LOG TURNER [address] [place], [...] on filedocumented in this encounter Care Teams Windows Server Support Technician Relationship Specialty Start Date End Date Eliceo Gómez DO [address] [place] [address] PCP - General Family Medicine 04/04/23 Eliceo Gómez DO [address] [place] [address] PCP - [facility] 05/06/23 Beata Hernandez PA [address] [place] [address] Dietitian Nutrition 08/08/23 05/16/24 Juan Damico DO [address] [facility] [address] [place] [address] Referring Physician Obstetrics and Gynecology 05/20/24 documented as of this encounter
--- OUTSIDE RECORDS SUMMARY | 2025-07-30 07:45 | XMS_ITS | Encounter Summary ---
Author Organization [facility] Address [address] [place] [address] Care Team Providers Care Movie Writer Name Role Phone Eliceo Gómez DO Primary Care Provider [phone] Eliceo Gómez DO Unavailable [phone] Beata Hernandez Unavailable Juan Damico DO Unavailable [phone] Encounter Details Date Type Department Care Team [...] attend chur ch or yarsani services? Never 04/14/2023 Do you [...] Recorded Patient Health Questionnaire-2 Score 0 03/14/2024 [facility] - Occupational Stress Questionnaire Answer Date [...] in a detention (including now)? No 10/25/2023 Comments No Sex [...] Dermatology [address] [place] [address] Adriana Cruz MD [address] [place] [address] 11/20/2025 8:30 AM EST Office Visit [facility] [address] [place] [address] Nelsy Harris APRN-TRACTOR OPERATOR BATTERY [address] [place] [address] documented as of this encounter Procedures Procedure Name Priority Date/Time Associated Diagnosis Comments XR FOOT RT MIN 3V 04/17/2024 1:1 7 PM EDT documented in this encounter Results * XR FOOT RT MIN 3V (04/17/2024 1:17 PM EDT) Anatomical Region Laterality Modality Other 04/17/2024 1:17 PM EDT Narrative 04/17/2024 1:20 PM EDT [address] [address] XRay Report Signed Patient: MARY FUENTES MR#: [id number] : 1970 Acct:[id number] Age/Sex: 53 / F ADM Date: 04/17/24 Loc: EC Attending Dr: Sade Felix D.P.M. Ordering Physician: Sade Felix D.P.M. Date of Service: 04/17/24 Procedure(s): XR foot RT min 3V Accession Number(s): [id number] cc: Sade Felix D.P.M.; Isatu GÓMEZ [address] [address] Patient Name: MARY FUENTES MRN: [id number] date: 1970 Sex: F Assigned Patient Location: Current Patient Location: Accession/Order Number: [id number] Exam Date: 04/17/2024 11:50 Report Date: 04/17/2024 [...] Signed By: 04/17/24 1320 DD/ 1317 TD/TT: Clean Rice Grader And Reel Tender: Procedure Note Radiology, Radiologist, - 04/17/2024 [place] [address] XRay Report Signed Patient: MARY FUENTES DMR#: [id number] : 1970Acct:[id number] Age/Sex: 53 / FADM Date: 04/17/24 Loc: EC Attending Dr: Sade Felix D.P.M. Ordering Physician: Sade Felix D.P.M. Date of Service: 04/17/24 Procedure(s): XR foot RT min 3V Accession Number(s): [id number] cc: Sade Felix D.P.M.; Isatu GÓMEZ [facility] [place] [id number] Patient Name: MARY FUENTES MRN: [id number] date: 1970 Sex: F Assigned Patient Location: Current Patient Location: Accession/Order Number: [id number] Exam Date: 04/17/2024 11:50 Report Date: 04/17/2024 [...] Dictated By: Nicki Dacosta M.D. Signed By:04/17/24 1322 DD/ 1317 TD/TT: Clean Rice Grader And Reel Tender: us Generic External Data Provider [facility] Final Result documented in this encounter Visit Diagnoses Not on filedocumented in this encounter Care Teams Movie Writer Relationship Specialty Start Date End Date Eliceo Gómez DO [address] [place] [address] PCP - General Family Medicine 04/04/23 Eliceo Gómez DO [address] [place] [address] PCP - [facility] 05/06/23 Beata Hernandez PA [address] [place] [address] Dietitian Nutrition 08/08/23 05/16/24 Juan Damico DO [address] [place] [address] Referring Physician Obstetrics and Gynecology 05/20/24 documented as of this encounter
--- OUTSIDE RECORDS SUMMARY | 2025-07-30 07:45 | XMS_ITS | Encounter Summary ---
Author Organization [facility] Address [address] [facility] [place] [address] Care Team Providers Care Cloth Weaver Name Role Phone Eliceo Gómez DO Primary Care Provider [phone] Juan Damico DO Unavailable [phone] Encounter Details Date Type Department Care Team (Late st Contact Info) Description 05/20/2025 Abstract [facility] [place] [facility] [address] [facility] [address] [place] [phone] Eliceo Gómez DO [address] [facility] [address] [place] [address] Social History Tobacco Use Types Packs/Day Years [...] attend chur ch or hoahaoism services? Never 05/01/2024 Do you [...] Recorded Patient Health Questionnaire-2 Score 0 01/20/2025 [facility] ional [facility] - Occupational Stress [...] any time in the past 12 [facility], were you homeless or living in [...] Dermatology [address] [place] [address] Adriana Cruz MD [address] [place] [address] 11/20/2025 8:30 AM EST Office Visit [facility] [address] [place] [address] Nelsy Harris, DATA PROCESSING OPERATOR-HUMAN RESOURCES MGR [address] [place] [address] documented as of this encounter Visit Diagnoses Not on filedocumented in this encounter Additional Health Concerns Assessment Noted Time PHQ-9 Depression Total Score: 0 01/21/20 25 1:00 PM EDT documented as of this encounter Care Teams Cloth Weaver Relationship Specialty Start Date End Date Eliceo Gómez DO [address] [place] [address] PCP - General Family Medicine 04/04/23 Juan Damico DO [address] [place] [address] Referring Physician Obstetrics and Gynecology 05/20/24 documented as of this encounter
--- OUTSIDE RECORDS SUMMARY | 2025-07-30 07:45 | XMS_ITS | Encounter Summary ---
Author Organization [facility] Address [address] [facility] [place] [address] Care Team Providers Care Service Tech/Welder Name Role Phone Eliceo Gómez DO Primary Care Provider [phone] Eliceo Gómez DO Unavailable [phone] Juan Damico DO Unavailable [phone] Encounter Details Date Type Department Care Team (Late st Contact Info) Description 07/10/2024 Abstract [facility] [place] [facility] [address] [facility] [address] [place] [address] Eliceo Gómez DO [address] [facility] [address] [place], [place] [phone] Social History Tobacco Use Types Packs/Day Years [...] attend chur ch or gnosticism services? Never 05/01/2024 Do you [...] Questionnaire-2 Score 0 07/11/2024 [facility] of Occupat ional Health - Occupational Stress [...] [address] [place] [address] Adriana Cruz MD [address] [place] [address] 11/20/2025 8:30 AM EST Office Visit [facility] [address] [place] [address] Nelsy Harris APRN-LIEUTENANT COLONEL [address] [place] [address] documented as of this encounter Visit Diagnoses Not on filedocumented in this encounter Care Teams Service Tech/Welder Relationship Specialty Start Date End Date Eliceo Gómez DO [address] [place] [address] PCP - General Family Medicine 04/04/23 Eliceo Gómez DO [address] [place] [address] PCP - [facility] 05/06/23 Juan Damico DO [address] [place] [address] Referring Physician Obstetrics and Gynecology 05/20/24 documented as of this encounter
--- OUTSIDE RECORDS SUMMARY | 2025-07-30 07:45 | XMS_ITS | Encounter Summary ---
Author Organization [facility] Address [address] [place] [address] Care Team Providers Care Quality Assurance Clerk Name Role Phone Eliceo Gómez DO Primary Care Provider [phone] Eliceo Gómez DO Unavailable [phone] Juan Damico DO Unavailable [phone] Encounter Details Date Type Department Care Team [...] Recorded Patient Health Questionnaire-2 Score 0 06/12/2024 [facility] Occupat ional Health - [...] Dermatology [address] [place] [address] Adriana Cruz MD [address] [place] [address] 11/20/2025 8:30 AM EST Office Visit [facility] [address] [place] [address] Nelsy Harris, INTEGRATED LOGISTICS PROGRAMS DIRECTOR-PIECE MAKER [address] [place] [address] documented as of this encounter Procedures Procedure Name Priority Date/Time Associated Diagnosis Comments XR FOOT RT MIN 3V 06/22/2024 12: 28 PM EDT documented in this encounter Results * XR FOOT RT MIN 3V (06/22/2024 12:28 PM EDT) Anatomical Region Laterality Modality Other 06/22/2024 12:2 8 PM EDT Narrative 06/22/2024 12:30 PM EDT [address] [address] XRay Report Signed Patient: MARY FUENTES MR#: [id number] : 1970 Acct:[id number] Age/Sex: 54 / F ADM Date: 06/19/24 Loc: EC Attending Dr: Sade Felix D.P.M. Ordering Physician: Sade Felix D.P.M. Date of Service: 06/19/24 Procedure(s): XR foot RT min 3V Accession Number(s): [id number] cc: Sade Felix D.P.M.; Isatu GÓMEZ [address] [address] Patient Name: MARY FUENTES MRN: [id number] date: 1970 Sex: F Assigned Patient Location: Current Patient Location: SURGOUT Accession/Order Number: [id number] Exam Date: 06/19/2024 13:30 Report Date: 06/22/2024 [...] Signed By: 06/22/24 1230 DD/ 1228 TD/TT: Locomotive Supervisor: Procedure Note Radiology, Radiologist, MD - 06/22/2024 [place] [address] XRay Report Signed Patient: MARY FUENTES DMR#: [id number] : 1970Acct:[id number] Age/Sex: 54 / FADM Date: 06/19/24 Loc: EC Attending Dr: Sade Felix D.P.M. Ordering Physician: Sade Felix D.P.M. Date of Service: 06/19/24 Procedure(s): XR foot RT min 3V Accession Number(s): [id number] cc: Sade Felix D.P.M.; Isatu GÓMEZ [place] [id number] Patient Name: MARY FUENTES MRN: [facility]:[id number] date: 1970 Sex: F Assigned Patient Location: Current Patient Location: [facility] Accession/Order Number: [id number] Exam Date: 06/19/2024 13:30 Report Date: 06/22/2024 [...] M.D. Signed By:06/22/24 1230 DD/ 1228 TD/TT: Locomotive Supervisor: us Generic External Data Provider [facility] Final Result documented in this encounter Visit Diagnoses Not on filedocumented in this encounter Care Teams Quality Assurance Clerk Relationship Specialty Start Date End Date Eliceo Gómez DO [address] [place] [address] PCP - General Family Medicine 04/04/23 Eliceo Gómez DO [address] [place] [address] PCP - [facility] 05/06/23 Juan Damico DO [address] [place] [address] Referring Physician Obstetrics and Gynecology 05/20/24 documented as of this encounter
--- OUTSIDE RECORDS SUMMARY | 2025-07-30 07:45 | XMS_ITS | Encounter Summary ---
Author Organization [facility] Address [address] [facility] [place] [address] Care Team Providers Care Datapower Developer Name Role Phone Eliceo Gómez DO Primary Care Provider [phone] Eliceo Gómez DO Unavailable [phone] Beata Hernandez Unavailable Juan Damico DO Unavailable [phone] Encounter Details Date Type Department Care Team (Late st Contact Info) Description 03/07/2024 Abstract [facility] [place] [facility] [address] [facility] [address] [place] [address] Eliceo Gómez DO [address] [facility] [address] [place] [address] Social History Tobacco Use Types Packs/Day Years [...] [address] [place] [address] Adriana Cruz MD [address] [place] [address] 11/20/2025 8:30 AM EST Office Visit [facility] [address] [place] [address] Nelsy Harris, PEDIATRIC ONCOLOGIST-REPAIRER WOOD FURNITURE [address] [place] [address] documented as of this encounter Visit Diagnoses Not on filedocumented in this encounter Care Teams Datapower Developer Relationship Specialty Start Date End Date Eliceo Gómez DO [address] [place] [address] PCP - General Family Medicine 04/04/23 Eliceo Gómez DO [address] [place] [address] PCP - [facility] 05/06/23 Beata Hernandez PA [address] [place] [address] Dietitian Nutrition 08/08/23 05/16/24 Juan Damico DO [address] [place] [address] Referring Physician Obstetrics and Gynecology 05/20/24 documented as of this encounter
--- OUTSIDE RECORDS SUMMARY | 2025-07-30 07:45 | XMS_ITS | Clinical Summary ---
Author Organization [facility] Address [address] [place] [address] Care Team Providers Care Cocoa Press Operator Name Role Phone Eliceo Gómez DO Primary Care Provider [phone] Juan Damico DO Unavailable [phone] Allergies Active Allergy Reactions Criticality Noted Date [...] tablet by mouth Daily 11/04/20 24 Active cyproheptadine (Periactin) 4 MG tablet Take [...] 16 g 11 01/21/20 25 026 Active meloxicam (Mobic) 15 MG tablet TAKE 1 TABLET BY MOUTH EVERY DAY FOR 30 DAYS 01/03/20 25 Active Trelegy Ellipta 100-62.5-25 MCG/ACT aerosol powderIndication s:Mild intermittent asthma, unspecified whether complicated (HCC) INHALE 1 PUFF BY MOUTH DAILY 60 each 1 02/06/20 25 Active albuterol HFA 90 mcg/act inhalerIndicatio ns:Mild intermittent asthma, unspecified whether complicated (HCC) INHALE 2 PUFFS EVERY 4 HOURS IF NEEDED FOR WHEEZING. 18 g 1 04/14/20 25 Active losartan (Cozaar) 50 MG tabletIndication s:Hypertension, unspecified type TAKE 1 TABLET BY MOUTH EVERY DAY 90 tablet 1 05/12/20 25 Active rOPINIRole (Requip) 1 MG tabletIndication s:Restless legs syndrome TAKE 1 TABLET BY MOUTH IN THE MORNING 90 tablet 1 06/05/20 25 Active atenolol (Tenormin) 50 MG tabletIndication s:Hypertension, unspecified type TAKE 1 TABLET BY MOUTH EVERY DAY 90 tablet 1 06/05/20 25 Active lisdexamfetamine (Vyvanse) 70 MG capsule Take 70 mg by mouth Daily 05/08/20 25 Active Albuterol-Budeso nide (Airsupra) 90-80 MCG/ACT aerosolIndicatio ns:Mild persistent asthma with acute exacerbation (HCC) Inhale 2 Inhalations every 4 (four) hours if needed (for wheezing) 10.7 g 11 06/06/20 25 Active Abilify Maintena 400 MG injection syringe INJECT INTRAMUSCULARLY ONCE A MONTH (BRING TO OFFICE FOR PROVIDER TO ADMINISTER) 06/12/20 25 Active Natural Vitamin D-3 125 MCG (5000 UT) tablet Take 5,000 Units by mouth Daily 06/09/20 25 Active mirtazapine (Remeron) 30 MG tablet 06/20/20 25 Active amphetamine-dext roamphetamine XR (Adderall XR) 25 MG 24 hr capsule Take 25 mg by mouth in the morning and 25 mg before bedtime. 06/18/20 25 Active zonisamide (Zonegran) 50 MG capsule Take 50 mg by mouth Daily 06/12/20 25 Active estradiol (Estrace) 1 MG tabletIndication s:Night sweats Take 1 tablet (1 mg) by mouth Daily 90 tablet 3 06/24/20 25 026 Active estradiol (Estrace) 0.1 MG/GM vaginal creamIndications :Hormone replacement therapy,Dyspareu estela in female Apply 0.5g vaginally twice weekly. 42.5 g 1 06/24/20 25 Active triamcinolone (Kenalog) 0.1 % creamIndications :Erythema Apply topically in the morning and before bedtime. to affected area. 45 g 1 06/24/20 25 Active clobetasol (Temovate) 0.05 % creamIndications :Rash and other nonspecific skin eruption Apply (1g) to affected areas (arm/buttock), up to twice a day when flared, do not use one the face, groin, or underarms, 30 day supply 60 g 11 07/09/20 25 Active hydrOXYzine HCl (Atarax) 25 MG tabletIndication s:Rash and other nonspecific skin eruption Take 1 tablet, by mouth, as needed for itching, 30 day supply. 30 tablet 2 07/09/20 25 Active Active Problems Problem Noted Date [...] nasal septoplasty 02/18/20212024 Daytime hypersomnia 12/07/2020 06/23/20 Encounters Date Type Department Care Team Description 07/16/2025 Results Follow-Up [facility] [address] [place] [address] Wendy Colon MA Bilateral screening mammogram with tomosynthesis 07/14/2025 Results Follow-Up [facility] [address] [place] [address] Chantale Sweet PA Dermatopathology exam 07/11/2025 2:00 PM EDT Ancillary Procedure [facility] [address] [place] [address] Breast cancer screening by mammogram 07/11/2025 Travel 07/09/2025 3:00 PM EDT Office Visit [facility] [place] [address] [place] [address] Chantale Sweet PA Rash and other nonspecific skin eruption (Primary Dx); Neoplasm of unspecified behavior of bone, soft tissue, and skin 07/09/2025 Bamboo flowsheet [facility] [address] [place] [address] Chantale Sweet PA 07/09/2025 Travel 07/04/2025 Travel 06/27/2025 Abstract [facility] [address] [place] [address] Eliceo Gómez, DO 06/25/2025 Abstract [facility] [address] [place] [address] Eliceo Gómez, DO 06/25/2025 Clinisync Result Encounter [facility] External Department Unsolicited Provider, Generic External Data 06/25/2025 Clinisync Result Encounter [facility] External Department Unsolicited Provider, Generic External Data 06/24/2025 9:00 AM EDT [facility] [address] [place] [address] Juan Damico DO Encounter for gynecological examination without abnormal finding; Encounter for Papanicolaou smear of vagina; Breast cancer screening by mammogram; Hormone replacement therapy; Chronic vulvitis; Night sweats; Dyspareunia in female; Erythema 06/24/2025 Travel 06/06/2025 2:20 PM EDT [facility] [address] [place] [address] Benedicto Salas PA Mild persistent asthma with acute exacerbation (HCC) (Primary Dx) 06/06/2025 Travel 06/05/20[facility] [address] [place] [address] Eliceo Gómez DO Restless legs syndrome; Hypertension, unspecified type 06/04/2025 Travel 05/20/2025 [facility] [address] [place] [address] Eliceo Gómez DO 05/10/2025 Refill [facility] [address] [place] [address] Eliceo Gómez DO Hypertension, unspecified type 04/30/2025 [facility] [address] [place] [address] Eliceo Gómez DO from Last 3 Months Immunizations Immunization [...] attend chur ch or yazidi services? Never 06/04/2025 Do you belong to [...] Recorded Patient Health Questionnaire-2 Score 0 06/24/2025 [facility] of Occupat ional [...] PM EDT Office Visit [facility] [address] [place] [address] Adriana Cruz MD [address] [place] [address] 11/20/2025 8:30 AM EST Office [facility] [address] [place] [address] Nelsy Harris, RAIL CAR LOADER-PAINT STRIPING MACHINE OPERATOR [address] [place] [address] Health Maintenance Due Date Last Done Comments Mammogram 07/11/2026 07/11/2025, 10/07, 09/28/2022, Additional history exists Pap Smear Discontinued 10/27/1998 FOBT Discontinued 03/13/2020 Sigmoidoscopy Discontinued 12/05/2022 Colonoscopy Discontinued 07/25/2023, 07/07, 07/25/2023, Additional history exists Colorectal Cancer Screening Discontinued Influenza Vaccine Discontinued 07/01/2024, , 08/17/2022, Additional history exists Cervical Cancer Screening Discontinued HPV/Cotest Discontinued 06/24/2025, 06/12/2024 CT Colonography Discontinued FIT-DNA Discontinued FIT Discontinued Procedures Procedure Name Priority Date/Time Associated Diagnosis Comments BI MAMMOGRAM SCREENING TOMOSYNTHESIS BILATERAL Routine 07/11/2025 2:02 PM EDT Breast cancer screening by mammogram SKIN / NAIL BIOPSY Routine 07/09/2025 3: 01 PM EDT Neoplasm of unspecified behavior of bone, soft tissue, and skin DERMATOPATHOLOGY EXAM Routine 07/09/2025 12:00 AM EDT Neoplasm of unspecified behavior of bone, soft tissue, and skin XR TIBIA FIBULA 2 VIEWS RIGHT 06/25/2025 1:05 PM EDT XR FOOT RT MIN 3V 06/25/2025 12: 58 PM EDT IGP,RFXAPTIMA HPV ALL,16/18,45 Routine 06/24/2025 12:00 AM EDT Encounter for Papanicolaou smear of vagina COLONOSCOPY Routine 03/24/2020 OCC BLD IMMUNOASSAY Routine 03/13/2020 from Last 3 Months or Most Recently Relevant to Health Maintenance Results * Bilateral screening mammogram with tomosynthesis (07/11/2025 2:02 PM EDT) Anatomical Region Laterality Modality Breast Bilateral Mammography 07/11/2025 4:57 PM EDT Impressions 07/11/2025 5:02 PM EDT Impression: No specific evidence of malignancy seen in either breast. BIRADS 2 - Benign Findings DENSITY: The breasts are heterogeneously dense, which may obscure small masses. FOLLOW-UP: Routine Screening Mammogram ELECTRONICALLY SIGNED BY: Bi Mesa M.D. Narrative 07/11/2025 5:02 PM EDT Examination: BI MAMMOGRAM SCREENING TOMOSYNTHESIS BILATERAL Clinical [...] pack is noted on the right posteromedially. Procedure Note Bi Mesa MD - 07/11/2025 Examination: BI MAMMOGRAM SCREENING TOMOSYNTHESIS BILATERAL Clinical History: screening Technique: Screening digital mammography study of both breasts wasperformed with 2-D and 3-D tomosynthesis imaging. Study was compared tothe prior exam dated 10/31/2023. Findings: There is no evidence of interval dominant spiculated mass,grouped microcalcifications, or skin thickening which would be suggestiveof malignancy. A few focal benign-appearing calcifications are seen bilaterally. Minimalbenign-appearing vascular calcification is noted on the right. Axillarylymph nodes including a partially visualized lymph node are noted on theright. Partially visualized power pack is noted on the rightposteromedially. IMPRESSION: Impression: No specific evidence of malignancy seen in either breast. BIRADS 2 - Benign Findings DENSITY: The breasts are heterogeneously dense, which may obscure smallmasses. FOLLOW-UP: Routine Screening Mammogram ELECTRONICALLY SIGNED BY: Bi Mesa M.D. 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 This case is reviewed in consultation with Dr. Cresencio Ascencio. [facility] Gross Text [facility] Microscopic Description Microscopic examination performed. [facility] CPT 01646*1 [facility] Skin Topography unknown / Unknown 07/09/2025 3:01 PM EDT Comment:Differential Diagnos is: SCC vs. BCC vs. ISK Check Margins: No Size of lesion: 0.7 x 0.7 cm [facility] LAB PATHOLOGY ORDERABLES Final Result [facility] * XR tibia fibula 2 views right (06/25/2025 1:05 PM EDT) Anatomical Region Laterality Modality Lower Extremities, Lower Leg Right Rad iographic Imaging 06/25/2025 1:05 PM EDT Narrative 06/25/2025 1:08 [place] [address] XRay Report Signed Patient: MARY LEAL MR#: [id number] : 1970 Acct:[id number] Age/Sex: 55 / F ADM Date: 06/25/25 Loc: RAD Attending Dr: Sade Felix D.P.M. Ordering Physician: Sade Felix D.P.M. Date of Service: 06/25/25 Procedure(s): XR tibia fibula RT 2V Accession Number(s): [id number] cc: Sade Felix D.P.M.; Isatu GÓMEZ [place] [id number] Patient Name: MARY LEAL MRN: [id number] date: 1970 Sex: F Assigned Patient Location: RAD Current Patient Location: RAD Accession/Order Number: [id number] Exam Date: 06/25/2025 13:03 Report Date: 06/25/2025 [...] Bullard M.D. 06/25/2025 1:05 PM Dictation Location: [place] [address] Electronically authenticated by: [id number] Y Date: 06/25/2025 13:05 Dictated By: Andres Bullard D.O. Signed By: 06/25/25 1308 DD/ 1305 TD/TT: Binder Stripper Hand: Procedure Note Radiology, Radiologist, MD - 06/25/2025 [place] [address] XRay Report Signed Patient: MARY LEAL DMR#: [id number] : 1970Acct:[id number] Age/Sex: 55 / FADM Date: 06/25/25 Loc: RAD Attending Dr: Sade Felix D.P.M. Ordering Physician: Sade Felix D.P.M. Date of Service: 06/25/25 Procedure(s): XR tibia fibula RT 2V Accession Number(s): [id number] cc: Sade Felix D.P.M.; Isatu GÓMEZ [place] [id number] Patient Name: MARY LEAL MRN: [id number] date: 1970 Sex: F Assigned Patient Location: [facility] Current Patient Location: [facility] Accession/Order Number: [id number] Exam Date: 06/25/2025 13:03 Report Date: 06/25/2025 [...] Bullard M.D. 06/25/2025 1:05 PM Dictation Location: [place] [address] Electronically authenticated by: [id number] Y Date: 3:05 Dictated By: Andres Bullard D.O. Signed By:06/25/25 1308 DD/ 04 TD/TT: Binder Stripper Hand: Generic External Data Provider IMG XR PROCEDURES Final Result * XR FOOT RT MIN 3V (06/25/2025 12:58 PM EDT) Anatomical Region Laterality Modality Other 06/25/2025 12:5 8 PM EDT Narrative 06/25/2025 1:01 [place] [address] XRay Report Signed Patient: MARY LEAL MR#: [id number] : 1970 Acct:[id number] Age/Sex: 55 / F ADM Date: 06/25/25 Loc: RAD Attending Dr: Sade Felix D.P.M. Ordering Physician: Sade Felix D.P.M. Date of Service: 06/25/25 Procedure(s): XR foot RT min 3V Accession Number(s): [id number] cc: Sade Felix D.P.M.; Isatu GÓMEZ [place] [address] Patient Name: MARY LEAL MRN: [id number] date: 1970 Sex: F Assigned Patient Location: RAD Current Patient Location: RAD Accession/Order Number: [id number] Exam Date: 06/25/2025 12:56 Report Date: 06/25/2025 [...] Weber M.D. 06/25/2025 12:58 PM Dictation Location: [place] [address] Electronically authenticated by: [id number] Date: 06/25/2025 12:58 Dictated By: Eitan Weber M.D. Signed By: 06/25/25 1301 DD/ 1258 TD/TT: Binder Stripper Hand: Procedure Note Radiology, Radiologist, MD - 06/25/2025 [place] [address] XRay Report Signed Patient: MARY LEAL DMR#: [id number] : 1970Acct:[id number] Age/Sex: 55 / FADM Date: 06/25/25 Loc: RAD Attending Dr: Sade Felix D.P.M. Ordering Physician: Sade Felix D.P.M. Date of Service: 06/25/25 Procedure(s): XR foot RT min 3V Accession Number(s): [id number] cc: Sade Felix D.P.M.; Isatu GÓMEZ [place] [id number] Patient Name: MARY LEAL MRN: [id number] date: 1970 Sex: F Assigned Patient Location: [facility] Current Patient Location: RAD Accession/Order Number: [id number] Exam Date: 06/25/2025 12:56 Report Date: 06/25/2025 12:58 At the request of: SADE FELIX DPDirk Procedure: XR foot RT min 3V ? FOOT - 3 views CLINICAL HISTORY: Pain COMPARISON: None FINDINGS: Stable appearance of the the postsurgical changes. Hardware is intact. No finding of hardware failure loosening. No fracturesdislocation. Moderate degenerative changes first MTP joint. Soft tissues unremarkable XR/XR foot RT min 3V IMPRESSION: Stable chronic findings. No acute osseous abnormality. Impression dictated by: Eitan Weber M.D. 06/25/2025 12:58 PM Dictation Location: [place] [address] Electronically authenticated by: [id number] Y Date: 2:58 Dictated By: Eitan Weber M.D. Signed By:06/25/25 1301 DD/ 1258 TD/TT: Binder Stripper Hand: us Generic External Data Provider [facility] Final Result * IGP,rfxAptima HPV all,16/18,45 (06/24/2025 12:00 AM EDT) Diagnosis: Comment [facility] Comment:NEGATIVE FOR INTRAEP ITHELIAL LESION OR MALIGNANCY. Specimen Adequacy: Comment [facility] Comment:Satisfactory for miguel luation. No endocervical component is identified. Clinician Provided ICD10: Comment [facility] Comment:Z12.72 Performed By: Comment [facility] Comment:Nasima Jimenes, Cytol ogist (ASCP) Cyto Comments . [facility] Note: Comment [facility] Comment: The Pap smear is a screening test designed to aid in the detection of premalignant and malignant conditions of the uterine cervix. It is not a diagnostic procedure and should not be used as the sole means of detecting cervical cancer. Both false-positive and false-negative reports do occur. Test Methodology: Comment [facility] Comment: This liquid based ThinPrep(R) pap test was screened with the use of an image guided system. . Comment [facility] Comment: The HPV DNA reflex criteria were not met with this specimen result therefore, no HPV testing was performed. Swab Vaginal structure / Unknown 06/24/2025 06/25/2025 Comment:Vagina Print requisi t Narrative [facility] - 06/26/2025 5:07 PM EDT Performed at: - Lab[address] [id number] Petrologist: Nayeli Chen MD, Phone: [phone] Specimen Comment: [id number] Specimen Comment: No. of containers..01 ThinPrep Vial Juan Damico DO LAB CYTOLOGY ORDERABLES Emilie l Result Performing Organization Address City/[facility] Co de Phone Number [facility] * Colonoscopy (03/24/2020) Anatomical Region Laterality Modality Endoscopy 03/24/2020 Narrative 03/20/2020 12:00 AM EDT PERFORMED AT [facility] LOCATION:[place] [address] Procedure Note CONVERSION, GENERIC - 03/22/2023 PERFORMED AT [facility] LOCATION:[place] [address] Eliceo Gómez DO ENDOSCOPY PROCEDURE ORDERABLE S Final Result * OCC BLD IMMUNOASSAY (03/13/2020) Pathologist [facility] OCCULT BLOOD NEGATIVE NEGATIVE [facility] PERFORMING LAB: see note [facility] Comment:[address] Laboratory - Auctioneer Tobacco Makenna Flores,[place] [address] ,Ext. [phone] 03/13/2020 Eliceo Gómez DO [facility] Final Result Performing Organization Address City/[facility] Co de Phone Number [facility] from Last 3 Months or Most Recently Relevant to Health Maintenance Insurance [facility] Member Subscriber Plan / Payer (Ef fective 2025-Present) Name:Elvis, Mary Kenny Relation to Subscriber:Self Name:Elvis, Mary Kenny Payer ID:[id number] (NAIC) Group ID:- Type:Not on file Address: [address] [address] Care Teams Cocoa Press Operator Relationship Specialty Start Date End Date Eliceo Gómez DO [address] [facility] [address] [place] [address] PCP - General Family Medicine 04/04/23 Juan Damico DO [address] [facility] [address] [place] [address] Referring Physician Obstetrics and Gynecology 05/20/24
--- OUTSIDE RECORDS SUMMARY | 2025-07-30 07:45 | XMS_ITS | Encounter Summary ---
Author Organization [facility] Address [address] [facility] [place] [address] Care Team Providers Care Bilingual Legal Assistant Name Role Phone Eliceo Gómez DO Primary Care Provider [phone] Eliceo Gómez DO Unavailable [phone] Juan Damico DO Unavailable [phone] Encounter Details Date Type Department Care Team (Late st Contact Info) Description 06/24/2024 Abstract [facility] [place] [facility] [address] [facility] [address] [place] [address] Eliceo Gómez DO [address] [facility] [address] [place], [place] [phone] Social History Tobacco Use Types Packs/Day Years [...] attend chur ch or moravian services? Never 05/01/2024 Do you [...] Recorded Patient Health Questionnaire-2 Score 0 06/12/2024 [facility] [place] of Occupat ional Health - Occupational Stress [...] Dermatology [address] [place] [address] Adriana Cruz MD [address] [place] [address] 11/20/2025 8:30 AM EST Office [facility] [address] [place] [address] Nelsy Harris, METEOROLOGICAL OBSERVER-OFFICE SPEC [address] [place] [address] documented as of this encounter Visit Diagnoses Not on filedocumented in this encounter Care Teams Bilingual Legal Assistant Relationship Specialty Start Date End Date Eliceo Gómez DO [address] [place] [address] PCP - General Family Medicine 04/04/23 Eliceo Gómez DO [address] [place] [address] PCP - [facility] 05/06/23 Juan Damico DO [address] [place] [address] Referring Physician Obstetrics and Gynecology 05/20/24 documented as of this encounter
--- OUTSIDE RECORDS SUMMARY | 2025-07-30 07:45 | XMS_ITS | Encounter Summary ---
Author Organization [facility] Address [address] [place] [address] Care Team Providers Care Drawbench Operator Helper Name Role Phone Eliceo Gómez DO Primary Care Provider [phone] Eliceo Gómez DO Unavailable [phone] Juan Damico DO Unavailable [phone] Encounter Details Date Type Department Care Team (Late st Contact Info) Description 05/29/2024 Abstract [facility] [place] [facility] [address] [facility] [address] [place] [address] Eliceo Gómez DO [address] [facility] [address] [place], [place] [phone] Social History Tobacco Use Types Packs/Day Years [...] often do you attend chur ch or religion services? Never 05/01/2024 Do you belong to [...] Recorded Patient Health Questionnaire-2 Score 0 05/14/2024 [facility] [place] of Occupat ional Health - Occupational Stress [...] Dermatology [address] [place] [address] Adriana Cruz MD [address] [place] [address] 11/20/2025 8:30 AM EST Office [facility] [address] [place] [address] Nelsy Harris, FARMWORKER VEGETABLE-NUTRITION SERVICES ASSOCIATE [address] [place] [address] documented as of this encounter Visit Diagnoses Not on filedocumented in this encounter Care Teams Drawbench Operator Helper Relationship Specialty Start Date End Date Eliceo Gómez DO [address] [place] [address] PCP - General Family Medicine 04/04/23 Eliceo Gómez DO [address] [place] [address] PCP - [facility] 05/06/23 Juan Damico DO [address] [place] [address] Referring Physician Obstetrics and Gynecology 05/20/24 documented as of this encounter
--- OUTSIDE RECORDS SUMMARY | 2025-07-30 07:45 | XMS_ITS | Encounter Summary ---
Author Organization [facility] Address [address] [place] [address] Care Team Providers Care Crucible Furnace Tender Name Role Phone Eliceo Gómez DO Primary Care Provider [phone] Eliceo Gómez DO Unavailable [phone] Juan Damico DO Unavailable [phone] Encounter Details Date Type Department Care Team [...] Recorded Patient Health Questionnaire-2 Score 0 07/11/2024 [facility] of Occupat [...] 08/27/2025 3:50 PM EDT Office Visit [facility] [place] [facility] [address] [place] [address] Adriana Cruz MD [address] [place] [address] 11/20/2025 8:30 AM EST Office Visit [facility] [address] [place] [address] Nelsy Harris APRN-KITCHENHAND [address] [place] [address] documented as of this encounter Procedures Procedure Name Priority Date/Time Associated Diagnosis Comments XR FOOT RT MIN 3V 07/10/2024 6:5 9 AM EDT documented in this encounter Results * XR FOOT RT MIN 3V (07/10/2024 6:59 AM EDT) Anatomical Region Laterality Modality Other 07/10/2024 6:59 AM EDT Narrative 07/10/2024 7:02 AM EDT [address] [address] XRay Report Signed Patient: MARY FUENTES MR#: [id number] : 1970 Acct:[id number] Age/Sex: 54 / F ADM Date: 07/09/24 Loc: EC Attending Dr: Sade Felix D.P.M. Ordering Physician: Sade Felix D.P.M. Date of Service: 07/09/24 Procedure(s): XR foot RT min 3V Accession Number(s): [id number] cc: Sade Felix D.P.M.; Isatu GÓMEZ [address] [address] Patient Name: MARY FUENTES MRN: [id number] date: 1970 Sex: F Assigned Patient Location: EC Current Patient Location: Accession/Order Number: [id number] Exam Date: 07/09/2024 10:00 Report Date: 07/10/2024 [...] Oliveros M.D. Signed By: 07/10/24 0702 DD/ TD/TT: Fire Marshal: Procedure Note Radiology, Radiologist, MD - 07/10/2024 [place] [address] XRay Report Signed Patient: MARY FUENTES DMR#: [id number] : 1970Acct:[id number] Age/Sex: 54 / FADM Date: 07/09/24 Loc: EC Attending Dr: Sade Felix D.P.M. Ordering Physician: Sade Felix D.P.M. Date of Service: 07/09/24 Procedure(s): XR foot RT min 3V Accession Number(s): [id number] cc: Sade Felix D.P.M.; Isatu GÓMEZ [place] [address] Patient Name: MARY FUENTES MRN: [id number] date: 1970 Sex: F Assigned Patient Location: Current Patient Location: Accession/Order Number: [id number] Exam Date: 07/09/2024 10:00 Report Date: 07/10/2024 [...] M.D. Signed By:07/10/24 0702 DD/ 0659 TD/TT: Fire Marshal: Generic External Data Provider [facility] Final Result documented in this encounter Visit Diagnoses Not on filedocumented in this encounter Care Teams Crucible Furnace Tender Relationship Specialty Start Date End Date Eliceo Gómez DO [address] [place] [address] PCP - General Family Medicine 04/04/23 Eliceo Gómez DO [address] [place] [address] PCP - [facility] 05/06/23 Juan Damico DO [address] [place] [address] Referring Physician Obstetrics and Gynecology 05/20/24 documented as of this encounter
--- OUTSIDE RECORDS SUMMARY | 2025-07-30 07:45 | XMS_ITS | Encounter Summary ---
Author Organization [facility] Address [address] [facility] [place] [address] Care Team Providers Care Safety Specialist Name Role Phone Eliceo Gómez DO Primary Care Provider Eliceo Gómez DO Unavailable [phone] Beata Hernandez Unavailable Juan Damico DO Unavailable [phone] Encounter Details Date Type Department Care Team (Late st Contact Info) Description 04/12/2024 Abstract [facility] [place] [facility] [address] [facility] [address] [place] [address] Eliceo Gómez DO [address] [facility] [address] [place] [address] Social History Tobacco Use Types Packs/Day Years [...] Recorded Patient Health Questionnaire-2 Score 0 03/14/2024 [facility] of Occupat ional Health [...] [address] [place] [address] Adriana Cruz MD [address] [place] [address] 11/20/2025 8:30 AM EST Office Visit [facility] [address] [place] [address] Nelsy Harris, AUTO LEASING MANAGER-EQUIPMENT PROCESSOR [address] [place] [address] documented as of this encounter Visit Diagnoses Not on filedocumented in this encounter Care Teams Safety Specialist Relationship Specialty Start Date End Date Eliceo Gómez DO [address] [place] [address] PCP - General Family Medicine 04/04/23 Eliceo Gómez DO [address] [place] [address] PCP - [facility] 05/06/23 Beata Hernandez PA [address] [place] [address] Dietitian Nutrition 08/08/23 05/16/24 Juan Damico DO [address] [place] [address] Referring Physician Obstetrics and Gynecology 05/20/24 documented as of this encounter
--- OUTSIDE RECORDS SUMMARY | 2025-07-30 07:45 | XMS_ITS | Patient Health Record ---
Author Organization [facility] [place] Address [address] [place] [address] Care Team Providers Care Human Services Supervisor Name Role Phone Rigo Grant DO Primary Care Provider Sade Ahuja Unavailable [phone] Allergies No Known Allergies Results Component Value Reference Range Notes XR foot RT min 3V (Not yet r eviewed by provider) Interpretation: Performing Lab: Notes/Report: Source Facility: [place] [address] XRay Report Signed Patient: EL[place]E FUENTES MR#: [id number] : 1970 Acct:[id number] Age/Sex: 54 / F ADM Date: 01/03/25 Loc: EC Attending Dr: Sade Felix D.P.M. Ordering Physician: Sade Felix D.P.M. Date of Service: 01/03/25 Procedure(s): XR foot RT min 3V Accession Number(s): [id number] cc: Sade Felix D.P.M.; Isatu CASTRO [address] [address] Patient Name: ELSIE FUENTES MRN: [id number] date: 1970 Sex: F Assigned Patient Location: EC Current Patient Location: EC Accession/Order Number: [id number] Exam Date: 01/03/2025 12:17 Report Date: 01/03/2025 [...] Makenna Pathak M.D.01/03/2025 12:21 PM Dictation Location: [place] [address] Electronically authenticated by: [id number] Y Date: 01/03/2025 12:21 Dictated By: Makenna Pathak M.D. Signed By: 01/03/25 1223 DD/ 1221 TD/TT: Pharmacy Informaticist: XR foot RT min 3V (Not yet r eviewed by provider) Interpretation: Performing Lab: Notes/Report: Source Facility: [place] [address] XRay Report Signed Patient: ELSIE FUENTES MR#: [id number] : 1970 Acct:[id number] Age/Sex: 54 / F ADM Date: 10/01/24 Loc: RAD Attending Dr: Sade Felix D.P.M. Ordering Physician: Sade Felix D.P.M. Date of Service: 10/01/24 Procedure(s): XR foot RT min 3V Accession Number(s): [id number] cc: Sade Felix D.P.M.; Isatu CASTRO [place] [address] Patient Name: ELSIE FUENTES MRN: [id number] date: 1970 Sex: F Assigned Patient Location: RAD Current Patient Location: RAD Accession/Order Number: [id number] Exam Date: 10/01/2024 07:45 Report Date: 10/03/2024 [...] M.D. Signed By: 10/03/24927 DD/ 4 TD/TT: Pharmacy Informaticist: XR Foot RT (3 views) * Reviewed date:11/04/2024 01:26:00 PM Interpretation: Performing Lab: Notes/Report: XR Foot RT (3 views) * Reviewed date:11/04/2024 02:42:58 PM Interpretation: Performing Lab: Notes/Report: Reason For Referral Reason Compression stocking s Diagnosis 1 Right foot pain (M79 .671) Referral Organization [facility] (PODIATRY) Referring Provider First Name Sade Referring Provider Last Name Isidro Referring Provider Speciality Podiatry Referred Provider Specialty Other suppli er Referral Priority Routine Medications Medication SIG (Take, Route, Frequency, Duration) Notes Start Date End Date Status Abilify 10 MG 1 tablet Orally Once a day Active Meloxicam 15 MG 1 tablet Orally Once a day; Duration: 30 days 01/03/2025 Active Requip Active Trelegy Ellipta 100-62.5-25 MCG/ACT Inhalation; Duration: 30 Days Active Vyvanse 70 MG 1 capsule in the mor belen Oral Once a day; Duration: 30 days Active Atenolol 50 MG 1 tablet Orally Once a day; Duration: 30 day(s) Active Dexilant 60 MG 1 capsule Orally Onc e a day Active LaMICtal 25 MG 1 tablet Orally Active Quviviq 50 MG 1 tablet within 30 m inutes of bedtime Orally Once a day Active HYDROcodone-Acetaminophen 5-325 MG 1 tablet as needed Orally every 6 hrs; Duration: 7 days 01/03/2025 Active predniSONE 10 MG 3 tablets once a day for 3 days, 2 tablets once a day for 3 days, 1 tablet once a day for 3 days Orally; Duration: 9 days 01/03/2025 Active Ajovy 225 MG/1.5ML Subcutaneous; Durati on: 28 Days Active Social History Tobacco Use: [...] Problem Status W/U Status Risk Notes Problem Essential hypertension (20140154) Essential (primary) hypertension (I10) Active confirmed Problem Gastro-esophageal reflux disease without esophagitis (985880979) Gastro-esophageal reflux disease without esophagitis (K21.9) Active confirmed Problem Localized, primary osteoarthritis of the ankle and/or foot (804708430) Primary osteoarthritis, right ankle and foot (M19.071) Active confirmed Problem Peroneal tendinitis (65688781) Peroneal tendinitis, right leg (M76.71) Active confirmed Problem Tibialis tendinitis (34620963) Posterior tibial tendinitis, left leg (M76.822) Active confirmed Problem Late effect of dislocation (3735898) Unspecified subluxation of right foot, sequela (S93.301S) Active confirmed Problem Presence of righ t artificial ankle joint (Z96.661) Active confirmed Problem Presence of functional implant, unspecified (Z96.9) Active confirmed Problem Gastroesophageal reflux disease (399368849) GERD (gastroesophageal reflux disease) (K21.9) Active confirmed Problem Sleep apnea (48993516) Sleep apnea (G47.30) Active confirmed Problem Bipolar disorder (75558216) Bipolar disorder (F31.9) Active confirmed Problem Generalized anxiety disorder (63409153) JOLEEN (generalized anxiety disorder) (F41.1) Active confirmed Problem Panic disorder (952887699) Panic attacks (F41.0) Active confirmed Problem Iron deficiency anemia (61936905) Anemia, iron deficiency (D50.9) Active confirmed Problem Osteoarthritis of right foot (9841028599638083) Osteoarthritis of right foot (M19.071) Active confirmed Problem Primary osteoarthritis (838946149) Primary osteoarthritis (M19.91) Active confirmed Problem Localized, primary osteoarthritis of the ankle and/or foot (165568025) Osteoarthritis of ankle, right (M19.071) Active confirmed Problem Essential hypertension (54334302) BP (high blood pressure) (I10) Active confirmed Problem Arthritis of left foot (3288725944140731) Arthritis of left foot (M19.072) Active confirmed Problem Tibialis tendinitis (96170208) Posterior tibial tendon dysfunction (PTTD) of right lower extremity (M76.821) Active confirmed Vital Signs Heart Rate 66 /min 01/03/2025 Temperature 97 degrees Fahrenheit 01/03/2025 Oximetry 98 % 01/03/2025 Height 64 in 01/03/2025 Weight 174 lbs 01/03/2025 BMI 29.86 kg/m2 01/03/2025 Encounters Encounter Location Date Provider Diagnosis [facility] (PODIATRY) [address] [place] [address] [place] [address] 01/03/2025 Sade Felix [facility] (PODIATRY) [address] [place] [address] [place] [address] 12/10/2024 Sade Felix Pain due to bone fixation device, initial encounter T84.84XA ; Posterior tibial tendon dysfunction (PTTD) of right lower extremity M76.821 and Right foot pain M79.671 [facility] (PODIATRY) [address] [place] [address] [place] [address] 01/03/2025 Sade Felix Posterior tibial tendon dysfunction (PTTD) of right lower extremity M76.821 ; Primary osteoarthritis, right ankle and foot M19.071 and Right foot pain M79.671 [facility] (PODIATRY) [address] [place] [address] [place] [address] 07/30/2024 Sade Felix Right foot pain M79.671 and Pain due to bone fixation device, initial encounter T84.84XA [facility] (PODIATRY) [address] [place] [address] [place] [address] 10/01/2024 Sade Felix Pain due to bone fixation device, initial encounter T84.84XA ; Posterior tibial tendon dysfunction (PTTD) of right lower extremity M76.821 ; Osteoarthritis of right foot M19.071 and Right foot pain M79.671 Assessments Encounter Date Diagnosis (ICD Code) Assessment Notes Treatment Notes Treatment Clinical Notes Section Notes 07/30/2024 Right foot pain (ICD-10 - M79.671) [...] well as stretching exercises. Finally I prescribed Mason 5/325 1 by mouth every 6 hours [...] Insured Coverage Start Date Coverage End Date [facility] [address] [place] [address] [id number] Elsie Fuentes Self - patient is the insured [place] 2ND INS [address] OFFICE OF [place], [place] [id number] Elsie Fuentes Self - patient is the insured 4 [place] [address] [place] [address] [id number] Elsie Fuentes Self - patient is the insured [...] osteotomy M96.89 migraines Surgical History Surgery Date(Month/Year) Carpal Tunnel Release 02/02/2010 Tonsillectomy 02/2021 Rotator Cuff Repair, Bicep Repair, Bone Spur [...]
--- OUTSIDE RECORDS SUMMARY | 2025-07-30 07:45 | XMS_ITS | Encounter Summary ---
Author Organization [facility] Address [address] [facility] [place] [address] Care Team Providers Care Scout Leaser Name Role Phone Eliceo Gómez DO Primary Care Provider [phone] Eliceo Gómez DO Unavailable [phone] Juan Damico DO Unavailable [phone] Encounter Details Date Type Department Care Team (Late st Contact Info) Description 06/20/2024 Abstract [facility] [place] [facility] [address] [facility] [address] [place] [address] Eliceo Gómez DO [address] [facility] [address] [place], [place] [address] Social History Tobacco Use Types Packs/Day Years [...] attend chur ch or baptism services? Never 05/01/2024 Do you [...] Recorded Patient Health Questionnaire-2 Score 0 06/12/2024 [facility] [place] of Occupat ional Health - Occupational Stress [...] Dermatology [address] [place] [address] Adriana Cruz MD [address] [place] [address] 11/20/2025 8:30 AM EST Office Visit [facility] [address] [place] [address] Nelsy Harris, OUTSIDE SALES REPRESENTATIVE-TICK SEWER [address] [place] [address] documented as of this encounter Visit Diagnoses Not on filedocumented in this encounter Care Teams Scout Leaser Relationship Specialty Start Date End Date Eliceo Gómez DO [address] [place] [address] PCP - General Family Medicine 04/04/23 Eliceo Gómez DO [address] [place] [address] PCP - [facility] 05/06/23 Juan Damico DO [address] [place] [address] Referring Physician Obstetrics and Gynecology 05/20/24 documented as of this encounter
--- OUTSIDE RECORDS SUMMARY | 2025-07-30 07:45 | XMS_ITS | Encounter Summary ---
Author Organization [facility] Address [address] [facility] [place] [address] Care Team Providers Care Rivet Thrower Name Role Phone Eliceo Gómez DO Primary Care Provider [phone] Eliceo Gómez DO Unavailable [phone] Juan Damico DO Unavailable [phone] Encounter Details Date Type Department Care Team (Late st Contact Info) Description 05/27/2024 Abstract [facility] [place] [facility] [address] [facility] [address] [place] [address] Eliceo Gómez DO [address] [facility] [address] [place], [place] [address] Social History Tobacco Use Types Packs/Day Years [...] attend chur ch or christianity services? Never 05/01/2024 Do you belong to [...] Recorded Patient Health Questionnaire-2 Score 0 05/14/2024 [facility] [place] of Occupat ional Health - Occupational Stress [...] Dermatology [address] [place] [address] Adriana Cruz MD [address] [place] [address] 11/20/2025 8:30 AM EST Office Visit [facility] [address] [place] [address] Nelsy Harris, WILDLIFE TECHNICIAN-DEDICATED INTERMODAL TRUCK DRIVER [address] [place] [address] documented as of this encounter Visit Diagnoses Not on filedocumented in this encounter Care Teams Rivet Thrower Relationship Specialty Start Date End Date Eliceo Gómez DO [address] [place] [address] PCP - General Family Medicine 04/04/23 Eliceo Gómez DO [address] [place] [address] PCP - [facility] 05/06/23 Juan Damico DO [address] [place] [address] Referring Physician Obstetrics and Gynecology 05/20/24 documented as of this encounter
--- OUTSIDE RECORDS SUMMARY | 2025-07-30 07:45 | XMS_ITS | Encounter Summary ---
Author Organization [facility] Address [address] [place] [address] Care Team Providers Care Private Duty Nurse Name Role Phone Eliceo Gómez DO Primary Care Provider Eliceo Gómez DO Unavailable [phone] Beata Hernandez Unavailable Juan Damico DO Unavailable [phone] Encounter Details Date Type Department Care Team (Late st Contact Info) Description 04/13/2023 Orders Only [facility] [place] [facility] [address] [place] [address] Jacob Felix MD [address] [place] [address] [place] [address] Social History Tobacco Use Types Packs/Day Years [...] How often do you attend chur or druze services? Never 04/14/2023 Do you [...] Health Questionnaire-2 Score 0 04/06/2023 [facility] of Occupat ional [...] [address] [place] [address] Adriana Cruz MD [address] [place] [address] 11/20/2025 8:30 AM EST Office Visit [facility] [address] [place] [address] Nelsy Harris, CRUTCHING CONTRACTOR-EAR NOSE THROAT PHYSICIAN [address] [...] on filedocumented in this encounter Care Teams Private Duty Nurse Relationship Specialty Start Date End Date Eliceo Gómez DO [address] [place] [address] PCP - General Family Medicine 04/04/23 Eliceo Gómez DO [address] [place] [address] PCP - [facility] 05/06/23 Beata Hernandez PA [address] [place] [address] Dietitian Nutrition 08/08/23 05/16/24 Juan Damico DO [address] [facility] [address] [place] [address] Referring Physician Obstetrics and Gynecology 05/20/24 documented as of this encounter
--- OUTSIDE RECORDS SUMMARY | 2025-07-30 07:45 | XMS_ITS | Patient Health Record ---
Author Organization [facility] Address [address] [address] Care Team Providers Care Show Worker Name Role Phone Jacob Felix Unavailable [phone] Allergies No Known Allergies Reason For Referral No Information Medications Medication SIG (Take, Route, Frequency, Duration) [...] use. Encounters Encounter [facility] [address] [address] 07/18/2025 Jacob Felix Arthritis of right ankle [...] right (ICD-10 - M25.871) Plan Of Treatment No Information Insurance Providers Payer Name Payer Address Payer Phone Subscriber Number Group Number Insured Name Patient Relationship to Insured Coverage Start Date Coverage End Date [facility] [address] [place] [address] [id number] Mary Leal Self - patient is the insured [facility] [address] [place] [phone] [id number] Mary Leal Self - patient is the insured Medical (General) History Medical History History ICD Code Arthritis Asthma GERD High Blood Pressure Surgical History Surgery Date(Month/Year) Ankle Fusion Bilateral Flat Foot Correction
--- OUTSIDE RECORDS SUMMARY | 2025-07-30 07:45 | XMS_ITS ---
Author Organization [facility] Address [address] [place] [address] Care Team Providers Care Pest Control Pilot Name Role Phone Eliceo Gómez DO Primary Care Provider [phone] Juan Damico DO Unavailable [phone] Active Problems Problem Noted Date Diagnosed Date [...]
--- OUTSIDE RECORDS SUMMARY | 2025-07-30 07:45 | XMS_ITS | Encounter Summary ---
Author Organization [facility] Address [address] [facility] [place] [address] Care Team Providers Care Tobacco Scrap Sifter Name Role Phone Eliceo Gómez DO Primary Care Provider Eliceo Gómez DO Unavailable [phone] Beata Hernandez Unavailable Juan Damico DO Unavailable [phone] Encounter Details Date Type Department Care Team (Late st Contact Info) Description 04/15/2024 Abstract [facility] [place] [facility] [address] [facility] [address] [place] [address] Eliceo Gómez DO [address] [facility] [address] [place] [address] Social History Tobacco Use Types Packs/Day Years [...] Recorded Patient Health Questionnaire-2 Score 0 03/14/2024 [employer] [employer] of Occupat ional Health - [...] [address] [place] [address] Adriana Cruz MD [address] [place] [address] 11/20/2025 8:30 AM EST Office Visit [facility] [address] [place] [address] Nelsy Harris, CERTIFIED COATINGS INSPECTOR-PROCEDURE TECH [address] [place] [address] documented as of this encounter Visit Diagnoses Not on filedocumented in this encounter Care Teams Tobacco Scrap Sifter Relationship Specialty Start Date End Date Eliceo Gómez DO [address] [place] [address] PCP - General Family Medicine 04/04/23 Eliceo Gómez DO [address] [place] [address] PCP - [facility] 05/06/23 Beata Hernandez PA [address] [place] [address] Dietitian Nutrition 08/08/23 05/16/24 Juan Damico DO [address] [place] [address] Referring Physician Obstetrics and Gynecology 05/20/24 documented as of this encounter
--- OUTSIDE RECORDS SUMMARY | 2025-07-30 07:45 | XMS_ITS | Encounter Summary ---
Author Organization [facility] Address [address] [facility] [place] [address] Care Team Providers Care Diagnostic Assistant Name Role Phone Eliceo Gómez DO Primary Care Provider [phone] Eliceo Gómez DO Unavailable [phone] Juan Damico DO Unavailable [phone] Encounter Details Date Type Department Care Team (Late st Contact Info) Description 05/29/2024 Abstract [facility] [place] [facility] [address] [facility] [address] [place] [address] Eliceo Gómez DO [address] [facility] [address] [place], [place] [address] Social History Tobacco Use Types Packs/Day Years [...] often do you attend chur ch or yazdanism services? Never 05/01/2024 Do you belong to [...] Recorded Patient Health Questionnaire-2 Score 0 05/14/2024 [facility] of Occupat ional Health - Occupational Stress [...] Dermatology [address] [place] [address] Adriana Cruz MD [address] [place] [address] 11/20/2025 8:30 AM EST Office Visit [facility] [address] [place] [address] Nelsy Harris, GREENS CUTTER-CORPORATE TAX MANAGER [address] [place] [address] documented as of this encounter Visit Diagnoses Not on filedocumented in this encounter Care Teams Diagnostic Assistant Relationship Specialty Start Date End Date Eliceo Gómez DO [address] [place] [address] PCP - General Family Medicine 04/04/23 Eliceo Gómez DO [address] [place] [address] PCP - [facility] 05/06/23 Juan Damico DO [address] [place] [address] Referring Physician Obstetrics and Gynecology 05/20/24 documented as of this encounter
--- OUTSIDE RECORDS SUMMARY | 2025-07-30 07:45 | XMS_ITS | Encounter Summary ---
Author Organization [facility] Address [address] [place] [address] Care Team Providers Care Agricultural Produce Commission Agent Name Role Phone Eliceo Gómez DO Primary Care Provider [phone] Eliceo Gómez DO Unavailable [phone] Beata Hernandez Unavailable Juan Damico DO Unavailable [phone] Encounter Details Date Type Department Care Team [...] Recorded Patient Health Questionnaire-2 Score 0 03/14/2024 [facility] - Occupational Stress Questionnaire Answer Date [...] Dermatology [address] [place] [address] Adriana Cruz MD [address] [place] [address] 11/20/2025 8:30 AM EST Office Visit [facility] [address] [place] [address] Nelsy Harris APRN-RETENTION MANAGER [address] [place] [address] documented as of this encounter Procedures Procedure Name Priority Date/Time Associated Diagnosis Comments XR FOOT RT MIN 3V 03/20/2024 10: 17 AM EDT documented in this encounter Results * XR FOOT RT MIN 3V (03/20/2024 10:17 AM EDT) Anatomical Region Laterality Modality Other 03/20/2024 10:1 7 AM EDT Narrative 03/20/2024 10:19 AM EDT [address] [address] XRay Report Signed Patient: MARY FUENTES MR#: [id number] : 1970 Acct:[id number] Age/Sex: 53 / F ADM Date: 03/20/24 Loc: EC Attending Dr: Sade Felix D.P.M. Ordering Physician: Sade Felix D.P.M. Date of Service: 03/20/24 Procedure(s): XR foot RT min 3V Accession Number(s): [id number] cc: Sade Felix D.P.M.; Isatu GÓMEZ [address] [address] Patient Name: MARY FUENTES MRN: [id number] date: 1970 Sex: F Assigned Patient Location: Current Patient Location: Accession/Order Number: [id number] Exam Date: 03/20/2024 09:50 Report Date: 03/20/2024 [...] Signed By: 03/20/24 1019 DD/ 1017 TD/TT: Machine Hoop Maker: Procedure Note Radiology, Radiologist, MD - 03/20/2024 [place] [address] XRay Report Signed Patient: MARY FUENTES DMR#: [id number] : 1970Acct:[id number] Age/Sex: 53 / FADM Date: 03/20/24 Loc: EC Attending Dr: Sade Felix D.P.M. Ordering Physician: Sade Felix D.P.M. Date of Service: 03/20/24 Procedure(s): XR foot RT min 3V Accession Number(s): [id number] cc: Sade Felix D.P.M.; Isatu GÓMEZ [place] [id number] Patient Name: MARY FUENTES MRN: [id number] date: 1970 Sex: F Assigned Patient Location: Current Patient Location: Accession/Order Number: [id number] Exam Date: 03/20/2024 09:50 Report Date: 03/20/2024 [...] M.D. Signed By:03/20/24 1019 DD/ 1017 TD/TT: Machine Hoop Maker: Generic External Data Provider [facility] Final Result documented in this encounter Visit Diagnoses Not on filedocumented in this encounter Care Teams Agricultural Produce Commission Agent Relationship Specialty Start Date End Date Eliceo Gómez DO [address] [place] [address] PCP - General Family Medicine 04/04/23 Eliceo Gómez DO [address] [place] [address] PCP - [facility] 05/06/23 Beata Hernandez PA [address] [place] [address] Dietitian Nutrition 08/08/23 05/16/24 Juan Damico DO [address] [place] [address] Referring Physician Obstetrics and Gynecology 05/20/24 documented as of this encounter
--- OUTSIDE RECORDS SUMMARY | 2025-07-30 07:45 | XMS_ITS | Encounter Summary ---
Author Organization [facility] Address [address] [facility] [place] [address] Care Team Providers Care Phosphoric Acid Supervisor Name Role Phone Eliceo Gómez DO Primary Care Provider [phone] Eliceo Gómez DO Unavailable [phone] Juan Damico DO Unavailable [phone] Encounter Details Date Type Department Care Team (Late st Contact Info) Description 07/10/2024 [facility] [place] [facility] [address] [facility] [address] [place] [address] Eliceo Gómez DO [address] [facility] [address] [place], [place] [id number] Social History Tobacco Use Types Packs/Day Years [...] Recorded Patient Health Questionnaire-2 Score 0 07/11/2024 [facility] of Occupat ional Health - Occupational Stress [...] in the past 12 m [facility], were you homeless or living in [...] Not at all 07/11/2024 9:44 AM EDT Mikaal Fowler LPN Feeling down, depressed, or hopeless [...] [address] [place] [address] Adriana Cruz MD [address] [place] [address] 11/20/2025 8:30 AM EST Office Visit [facility] [address] [place] [address] Nelsy Harris APRN-ROTOPRINTER [address] [place] [address] documented as of this encounter Visit Diagnoses Not on filedocumented in this encounter Care Teams Phosphoric Acid Supervisor Relationship Specialty Start Date End Date Eliceo Gómez DO [address] [place] [address] PCP - General Family Medicine 04/04/23 Eliceo Gómez DO [address] [place] [address] PCP - [facility] 05/06/23 Juan Damico DO [address] [place] [address] Referring Physician Obstetrics and Gynecology 05/20/24 documented as of this encounter
--- OUTSIDE RECORDS SUMMARY | 2025-07-30 07:45 | XMS_ITS | Encounter Summary ---
Author Organization [facility] Address [address] [place] [address] Care Team Providers Care Overcoil Stepper Name Role Phone Eliceo Gómez DO Primary Care Provider [phone] Eliceo Gómez DO Unavailable [phone] Juan Damico DO Unavailable [phone] Encounter Details Date Type Department Care Team (Late st Contact Info) Description 05/17/2024 Abstract [facility] [place] [facility] [address] [facility] [address] [place] [address] Eliceo Gómez DO [address] [facility] [address] [place], [place] [phone] Social History Tobacco Use Types Packs/Day Years [...] attend chur ch or mosque services? Never 05/01/2024 Do you [...] Recorded Patient Health Questionnaire-2 Score 0 05/14/2024 [facility] [place] of Occupat ional Health - Occupational Stress [...] Dermatology [address] [place] [address] Adriana Cruz MD [address] [place] [address] 11/20/2025 8:30 AM EST Office Visit [facility] [address] [place] [address] Nelsy Harris, NATURAL RESOURCES TECHNICIAN-CERTIFIED DENTAL ASSISTANT [address] [place] [address] documented as of this encounter Visit Diagnoses Not on filedocumented in this encounter Care Teams Overcoil Stepper Relationship Specialty Start Date End Date Eliceo Gómez DO [address] [place] [address] PCP - General Family Medicine 04/04/23 Eliceo Gómez DO [address] [place] [address] PCP - [facility] 05/06/23 Juan Damico DO [address] [place] [address] Referring Physician Obstetrics and Gynecology 05/20/24 documented as of this encounter
--- OUTSIDE RECORDS SUMMARY | 2025-07-30 07:45 | XMS_ITS | Encounter Summary ---
Author Organization [facility] Regen s tem Address [id number] [address] [place] [address] Care Team Providers Care Surface Ship Usw Supervisor Name Role Phone Dalia Morales DO, George R Primary Care Provider + Encounter Details Date Type Department Care Team (Late Contact Info) Description 12/23/2019 Telephone [facility] [address] [phone] Jenifer Helm, MAKI Social History Tobacco Use [...] Info) Description 08/18/2025 9:15 AM EDT [facility] [address] [place] [address] 08/18/2025 9:45 AM EDT [facility]oint[facility] [address] [place] [address] 08/19/2025 3:30 PM EDT Office Visit [facility] Neurology, A Department of [address] [place] [address] Pauline Christensen MD [address] [place] [address] [address], [address] [place] [address] 10/08/2025 9:15 AM EST Appointment [facility] Neuroscience Center - Neurophysiology [address] [place] [address] [address] [place] [address] 10/14/2025 8:00 AM EST Office Visit [facility] Neurology, A Department of [address] [place] [address] Justin Bhat MD [address] [place] [address] [address] [place] [address] documented as of this encounter Visit Diagnoses Not on filedocumented in this encounter Additional Health Concerns Infection Onset Date Last Indicated Resolved Time COVID-19 Rule-Out 09/22/2020 09/22/2020 09/22/2020 3:17 PM EST documented as of this encounter Care Teams Surface Ship Usw Supervisor Relationship Specialty Start Date End Date Eliceo Gómez Jr., [address] [place] [address], [id number] [place] [address] PCP - General Family Medicine 12/11/19 Jenna Butler [address] Consulting Physician Behavioral Health 12/20/23 documented as of this encounter
--- OUTSIDE RECORDS SUMMARY | 2025-07-30 07:45 | XMS_ITS | Encounter Summary ---
Author Organization [facility] Address [address] [facility] [place] [address] Care Team Providers Care Woolen Tester Name Role Phone Eliceo Gómez DO Primary Care Provider [phone] Eliceo Gómez DO Unavailable [phone] Juan Damico DO Unavailable [phone] Encounter Details Date Type Department Care Team (Late st Contact Info) Description 05/27/2024 Abstract [facility] [place] [facility] [address] [facility] [address] [place] [address] Eliceo Gómez DO [address] [facility] [address] [place], [place] [phone] Social History Tobacco Use Types Packs/Day Years [...] often do you attend chur ch or scientologist services? Never 05/01/2024 Do you [...] Recorded Patient Health Questionnaire-2 Score 0 05/14/2024 [facility] [place] of Occupat ional Health - Occupational Stress [...] Dermatology [address] [place] [address] Adriana Cruz MD [address] [place] [address] 11/20/2025 8:30 AM EST Office Visit [facility] [address] [place] [phone] Nelsy Harris, CAFE COOK-STUDIO DESIGNER [address] [place] [address] documented as of this encounter Visit Diagnoses Not on filedocumented in this encounter Care Teams Woolen Tester Relationship Specialty Start Date End Date Eliceo Gómez DO [address] [place] [address] PCP - General Family Medicine 04/04/23 Eliceo Gómez DO [address] [place] [address] PCP - [facility] 05/06/23 Juan Damico DO [address] [place] [address] Referring Physician Obstetrics and Gynecology 05/20/24 documented as of this encounter
--- OUTSIDE RECORDS SUMMARY | 2025-07-30 07:45 | XMS_ITS | Encounter Summary ---
Author Organization [facility] Address [address] [place] [facility] [place] [address] Care Team Providers Care Nuclear Medicine Pet Ct Technologist Name Role Phone Eliceo Gómez DO Primary Care Provider Eliceo Gómez DO Unavailable [phone] Beata Hernandez Unavailable Juan Damico DO Unavailable [phone] Encounter Details Date Type Department Care Team (Late st Contact Info) Description 04/18/2024 Abstract [facility] [place] [facility] [address] [facility] [address] [place] [address] Eliceo Gómez DO [address] [facility] [address] [place] [address] Social History Tobacco Use Types Packs/Day Years [...] Recorded Patient Health Questionnaire-2 Score 0 03/14/2024 [facility] of Occupat ional Health - [...] [address] [place] [address] Adriana Cruz MD [address] [place] [address] 11/20/2025 8:30 AM EST Office Visit [facility] [address] [place] [address] Nelsy Harris, PHOTOGRAMMETRIST-AIRCRAFT ARMAMENT MECHANIC [address] [place] [address] documented as of this encounter Visit Diagnoses Not on filedocumented in this encounter Care Teams Nuclear Medicine Pet Ct Technologist Relationship Specialty Start Date End Date Eliceo óGmez DO [address] [place] [address] PCP - General Family Medicine 04/04/23 Eliceo Gómez DO [address] [place] [address] PCP - [facility] 05/06/23 Beata Hernandez PA [address] [place] [address] Dietitian Nutrition 08/08/23 05/16/24 Juan Damico DO [address] [place] [address] Referring Physician Obstetrics and Gynecology 05/20/24 documented as of this encounter
--- OUTSIDE RECORDS SUMMARY | 2025-07-30 07:46 | XMS_ITS | CCD ---
Author Organization [facility] Care Team Providers Care Client Development Consultant Name Role Phone PARISH GÓMEZ Primary Care Unavailable Eliceo Gómez Jr. Primary Care Provider Maximus Gwendolyn Unavailable Maximus OROSCO, Gwendolyn Unavailable Beto Snyder Unavailable Tita Daugherty Unavailable Erica Kingston Unavailable Eliceo Gómez Unavailable Unavailable Unavailable Allison Arita Unavailable Eliceo Gómez Jr. Primary Care Provider Maximus OROSCO, Gwendolyn Unavailable [phone] Eliceo Gómez Unavailable DO Shannon Gómez Primary Care Provider MD Beto Snyder Attending Provider Eliceo Gómez Jr. Primary Care Provider Maximus OROSCO, Gwendolyn Unavailable [phone] Beto Cartagena Unavailable MD Beto Cartagena Attending Provider [phone] WINSTON HANNAH Attending Unavailable WINSTON HANNAH Referring Unavailable ELICEO GÓMEZ JR Primary Care Unavail able ISRA MASTERS Attending Unavailable ISRA MASTERS Referring Unavailable ELICEO GÓMEZ JR Primary Care Unavail able DO Shannon Gómez Primary Care Provider LORRAINE Duron Attending Provider [phone] DR FELISHA SKELTON Consulting Unavailable DR Isatu GÓMEZ Primary Care Unavailable HAY ., DR BAEZA Admitting Unavailable HAY ., DR BAEZA Attending Unavailable SALMA AMEZQUITA Consulting Unavailable HIGHLANDER, SADE Keys Consulting Unavailable HIGHLANDER, SADE Keys Attending Unavailable HIGHLANDER, PETER D Admitting Unavailable KAFTAN, DR Isatu LUGO Primary Care Unavailable MCGHEESHERLYN Consulting Unavailable HIGHLANDER, PETER D Attending Unavailable [...] Unavailable WEST, DR NICKI Gale Consulting Unavailable HIGHLANDERSADE Consulting Unavailable EDUARDO ., NANCY LAMA Consulting [...] Consulting Unavailable DO Anibal Valle Emergency Provider [phone] Unavailable Unavailable Unavailable Primary Care Provider UnavailLEV Aaron Referring Unavailable LEV RITTER Attending Unavailable LEX SALMON Attending Unavailable Héctor, Dr. Dipti Fam Attending Unava ilaraceli [...] Care Provider DO Tez Vazquez Attending Provider [phone] PAM WANG Referring Unavailable ELICEO GÓMEZ JR Primary Care Unavail able Dalia Morales DO, George Robert Primary Care Provi pa ELICEO GÓMEZ JR Primary Care Unavail able PAM WANG Admitting Unavailable PAM WANG Attending Unavailable PAM WANG Referring Unavailable ELICEO GÓMEZ JR Primary Care Unavail able JAIRON LAI Attending Unavailable PAM WANG Attending Unavailable STEPHONLEIGHA JENKINSELICEO Primary Care Unavail able STEPHONLEIGHA JENKINS, ELICEO LUGO Primary Care Unavail able NELSY CHÁVEZ Attending Unavailable FLOWER LOPEZ Attending Unavailable DALIA ELICEO Primary Care Unavail able STEPHONJEROMETOMASA ELICEO Primary Care Unavail able STEPHONLEIGHA JENKINSELICEO Primary Care Unavail able DALIA JENKINSELICEO Primary Care Unavail able PAM WANG Attending Unavailable DALIA JENKINSELICEO Primary Care Unavail able FELIPE, PAM Attending [...] Provider Shannon Gómez DO Primary Care Provider [phone] Anibal Medrano DO Attending Provider Dipti Acevedo DO Attending Provider [phone] Brisa BENSON, Padmaja Attending Provider [phone] Dalia Morales DO, George R Primary Care Provider Everett Valdez MD Attending Provider [phone] Shannon GÓMEZ Primary Care Unavailable MERISSA DELAROSA Referring Unavailable SELF, SELF Referring Unavailable Shannon GÓMEZ Primary Care Unavailable Shannon GÓMEZ Primary Care Unavailable RADHA CARDENAS Attending Unavailable Shannon GÓMEZ Referring Unavailable Shannon GÓMEZ Primary Care Unavailable MERISSA DELAROSA Attending Unavailable Shannon GÓMEZ Referring Unavailable Shannon GÓMEZ Primary Care Unavailable Shannon GÓMEZ Referring Unavailable LI, NA Referring Unavailable KAFTAN, GReno LUGO Primary Care Unavailable MERISSA DELAROSA Attending Unavailable LI, NA Referring Unavailable KAFTAN, GReno LUGO Primary Care Unavailable RADHA CARDENAS Attending Unavailable RADHA CARDENAS Attending Unavailable KAFTAN, GReno LUGO Primary Care Unavailable KAFTAN, GReno LUGO Referring Unavailable KAFTAN, GReno LUGO Referring Unavailable NOHELIARADHA FORTE Attending Unavailable KAFTAN, GReno LUGO Primary Care Unavailable LI, NA Referring Unavailable KAFTAN, GReno LUGO Primary Care Unavailable MILAGROS FRANCO Attending Unavailab le Dalia LOAIZA Eliceo R Unavailable CHRISTENSEN, AJAZ Referring Unavailable CHRISTENSEN, AJAZ Referring Unavailable CHRISTENSEN, AJAZ Attending Unavailable CHRISTENSEN, AJAZ Attending Unavailable CHRISTENSEN AJAZ Attending Unavailable KaftShannon randolph DO Primary Care Provider Anibal Medrano DO Attending Provider [phone] Everett Valdez MD Attending Provider Shannon Gómez DO Primary Care Provider [phone] Grant DURABLE MEDICAL EQUIPMENT REPAIRER-CMonica Attending Provider Shannon Gómez DO Primary Care Provider Everett Valdez MD Attending Provider AdalSalma brooks DO Attending Provider Shannon Gómez DO Primary Care Provider [phone] Grant DURABLE MEDICAL EQUIPMENT REPAIRER-CMonica Attending Provider [phone] Anibal Medrano N Attending Unavailable Mitchell, Anibal N Admitting Unavailable Hernandezan, GReno Lugo Primary Care Unavailable Monica Burns Admitting Unavailable Kaftan, GReno Lugo Primary Care Unavailable Monica Burns Attending Unavailable Li, Na Admitting Unavailable Kaftan, G. Parish Primary Care Unavailable Li, Na Attending Unavailable Mitchell, Anibal N Attending Unavailable Mitchell, Naibal N Admitting Unavailable Kaftan, GReno Lugo Primary Care Unavailable Dipti Acevedo Attending Unavailable Dipti Acevedo Admitting Unavailable Kaftan, GReno Lugo Primary Care Unavailable Grant, Monica E Admitting Unavailable Kaftan, G. Parish Primary Care Unavailable Grant, Monica E Attending Unavailable Kajeromean GReno Lugo Primary Care Unavailable Everett Valdez Attending Unavailable Everett Valdez Admitting Unavailable Kaftan, G. Pairsh Primary Care Unavailable Courtney, Everett Attending Unavailable Courtney, Everett Admitting Unavailable BialaskAnibal beckwith Attending Unavailable BialdailyiAnibal N Admitting Unavailable Kaftan, G. Parish Primary Care Unavailable Grant, Monica E Admitting Unavailable Kaftan, G. Parish Primary Care Unavailable Grant, Monica E Attending Unavailable KAJEROMEAN, ELICEO R Attending Unavailable LEELA, NANCY Cavazos Attending Unavailable NANCY SWENSON Attending Unavailable DIPTI ACEVEDO Attending Unavailable CHANTALE SWEET Attending Unavailable DIPTI ACEVEDO Referring Unavailable KAFTAN, ELICEO Ellis Attending Unavailable DALIA, ELICEO R Referring Unavailable KAFTAN, ELICEO R Referring Unavailable RON KING Attending Unavailable DALIA, ELICEO Ellis Referring Unavailable DIPTI ACEVEDO Attending Unavailable DIPTI ACEVEDO Attending Unavailable RON KING Attending Unavailable DIPTI ACEVEDO Attending Unavailable DIPTI ACEVEDO Attending Unavailable DIPTI ACEVEDO Attending Unavailable DIPTI ACEVEDO Attending Unavailable NELSY SNYDER Attending Unavailable ALBERTO SOLIS Attending Unavailable DALIA JENKINS, ELICEO R Referring Unavailable KAFTAN JR, ELICEO R Primary Care Unavailable ALBERTO SOLIS Admitting Unavailable ALBERTO SOLIS Attending Unavailable ALBERTO SOLIS Referring Unavailable KALEIGHA JR, ELICEO R Primary Care Unavailable INGRID BHAT Attending Unavailable KALEIGHA JR, ELICEO R Referring Unavailable KAFTAN JR, ELICEO R Primary Care Unavailable HEALTH, 360 Referring Unavailable KAFTAN JR, ELICEO R Primary Care Unavailable CHRISTENSEN, AJAZ A Referring Unavailable KAFTAN JR, ELICEO R Primary Care Unavailable CHRISTENSEN, AJAZ A Referring Unavailable KAFTAN JR, ELICEO R Primary Care Unavailable INGRID BHAT Referring Unavailable KAFTAN JR, ELICEO R Primary Care Unavailable Brandyn BENSON, Ace Art Attending Unavailable Brandyn BENSON, Ace Art Attending Unavailable Brandyn BENSON, Ace Art Attending Unavailable Brandyn BENSON, Ace Art Attending Unavailable Gijojoitis , Ace Art Attending Unavailable Gipelon BENSON, Ace Art Attending Unavailable Gipelon BENSON, Ace Art Attending Unavailable Brandyn BENSON, Ace Art Attending Unavailable Allergies Allergy Classification Reported Allergen(s) Allergy Type Date of Onset Reaction(s) Facility risperiDONE (1 source) risperiDONE Drug Allergy 9 [facility] (20 sources) risperiDONE; Translations: [RisperDAL TABS] Drug Allergy 0 Intolerance, Other (See Comments) [facility] (1 source) oxyCODONE Drug Allergy [facility] Repository (1 source) risperiDONE Drug Allergy [facility] Repository (20 sources) POISON BRENDA EXTRACT; Translations: [POISON BRENDA EXTRACT] Drug Allergy 3 Rash [facility] (20 sources) risperiDONE Drug Allergy 9 [facility] (1 source) risperiDONE Drug Allergy [facility] Repository (1 source) POISON BRENDA; Translations: [POISON BRENDA] Propensity to adverse reactions to drug (disorder) 2 [facility] Repository (3 sources) Poison Brenda Extract Propensity to adverse reactions 3 Rash [facility] Healthcare Work Phone: (1 source) risperiDONE Drug Allergy 5 [facility] Repository Medications Current Medications Medication Drug [...] 1 tablet by mouth every twelve hours [id number] actuat albuterol 0.09 mg/actuat metered dose [...] sulfate 6.25 mg extended release oral capsule (10 sources) Central Nervous System Stimulant Start: 025 take 1 capsule by mouth every twenty-four hours amphetamine-dextroamp hetamine XR (ADDERALL XR) 25 mg 24 hr capsule Take by mouth. 05/16/2025 Active ARIPiprazole 400 mg extended release prefilled syringe (20 sources) Atypical Antipsychotic Start: 025 Abilify Maintena 400 MG injection syringe INJECT [...] every afternoon. baclofen 10 mg oral tablet (13 sources) gamma-Aminobutyric Acid-ergic Agonist Start: 05-06-2025 take [...] 1 capsule by mo ut once daily cholecalciferol, vitamin D3, 5,000 units [...] g 11 07/09/2025 Active 168 hr cloNIDine 0.35513 mg/hr transdermal system (4 sources) Central alpha-2 [...] (Reorder) cyproheptadine hydrochloride 4 mg oral tablet (13 sources) Start: 01-09-2025 take 1 tablet by [...] as dir ected. daridorexant 50 mg tablet (14 sources) take 1 tablet by mouth once [...] Propionate (Flon ase Allergy Relief) 50 mcg/actuation [place],Suspension Discontinued 2 SPRAY INTRANASAL Daily October 15, 2018 1:00am June 18, 2019 3:04pm Comment on above: Use 1 [place] in each nostril once daily. 30 actuat [...] take 1 puff(s) by inhalation once daily Lxnlhbedmdd-Ofriqxaih-Skhhrd 100-62.5-25 MCG/ACT aerosol powder Indications: Asthma Inhale [...] puff(s) by in halation in the morning cyfecirfwav-rpsdlratm-xgogrgdy (TRELEGY ELLIPTA) 100-62.5-25 mcg blister with device Indications: Asthma, unspecified asthma severity, unspecified whether complicated, unspecified whether persistent Inhale 1 puff in the morning. 60 each 5 05/31/2022 Active End: 07-11-2024 Stemgtxxvsq-Ojvmsllxu-Ptcuqi (Trelegy Ellipta) 100-62.5-25 MCG/ACT aerosol powder Inhale 07/11/2024 Discontinued take 1 puff(s) by in halation once daily Trelegy Ellipta 100-62.5-25 MCG/INH 1 puff Inhalation Once a day Not-Taking Comment on above: Inhale 1 Puff as ins tructed once daily. fluvoxaMINE maleate 50 mg oral tablet (16 sources) Serotonin Reuptake Inhibitor Start: take 1 [...] (20 sources) Start: 05-15-20 24 End: 04-21-20 25 inject 120 mg by subcutaneous injection every [...] inulin 200 mg / lactobacillus rhamnosus gg [id number] unt oral capsule (1 source) Start: 06-07-2022 [...] 0 Active take 2 tablets by mo [facility] in the morning lamoTRIgine (LaMICtal) 25 mg tablet Take 2 tablets (50 mg total) by mouth in the morning. 0 Active Comment on above: Take 25 mg by mouth once daily. lidocaine 0.05 mg/mg medicated patch (4 sources) Antiarrhythmic, Amide Local Anesthetic Start: lidocaine (LIDODERM) [...] above: Take 1 capsule by mo [facility] every afternoon. LORazepam 1 mg oral [...] Active naltrexone hydrochloride 50 mg oral tablet (3 sources) Opioid Antagonist take 4.5 mg by mouth in the morning naltrexone (REVIA) 50 mg tablet Take 4.5 mg by mouth in the morning. Active nystatin 530992 unt/ml oral suspension (20 sources) Polyene Antifungal Start: 08-01-2024 End: 08-09-2024 nystatin (Mycostatin) 899116 UNIT/ML suspension Indications: Oral candidiasis Take 5 mL (500,000 Units) by mouth in the morning and 5 mL (500,000 Units) at noon and 5 mL (500,000 Units) in the evening and 5 mL (500,000 Units) before bedtime. Do all this for 8 days. 160 mL 08/01/2024 08/09/2024 Active Start: 05-03-2024 End: 07-11-2024 nystatin (Mycostatin) 408856 UNIT/ML suspension Take 5 mL by mouth [...] bedtime. rimegepant 75 mg disintegrating oral tablet (14 sources) Start: 3 rimegepant 75 mg tablet,disintegratin [...] the AM and 2 mg PM sennosides, mcfp 8.6 mg oral tablet (6 [...] (2 sources) Orexin Receptor Antagonist Start: End: 4 take 1 tablet by [...] vitamin D2-vitamin K1 20-120 mcg/4 drops drops (4 sources) vitamin D2-vitam in K1 20-120 mcg/4 [...] Releas (11 sources) Start: 06-05-20 End: 09-16-20 take 1 capsule by mouth [...] completed) docusate sodium 50 mg / sennosides, mcfp 8.6 mg oral tablet (16 sources) Start: [...] needed for pain. Take 1 tablet by [facility] every 6 hours as needed for pain for up to 7 days. lactobacillus rhamnosus gg [id number] unt oral capsule (20 sources) Start: 2 [...] Start: 12-27-2021 take 1 capsule by mo [facility] once daily lactobacillus rhamnosus (CULTURELLE) 10 billion cell capsule Take 1 capsule by mouth once daily. 30 capsule 0 12/27/2021 Active Comment on above: Take 1 capsule by [facility] once daily. linaclotide 0.145 mg oral capsule [...] tablet (16 sources) Leukotriene Receptor Antagonist Start: 018 End: [...] above: Take 1 capsule by [facility] twice daily. 24 hr oxybutynin chloride 10 [...] June 05, 2023 10:13am polyethylene glycol 3350 15488 mg powder for oral solution (3 sources) [...] above: Take 1 capsule by mo [facility] as directed. As needed for constipation [...] on above: Take 2 tablets by mo [facility] three times daily as needed. simethicone [...] above: Take 1,000 mcg by mo [facility] once daily. vortioxetine 10 mg oral [...] Chronic Esophageal disorders (2 sources) Esophagitis; Translations: [[place] grade D esophagitis] 04-12-2024 Episodic Esophageal disorders [...] therapy] 06-23-2025 Episodic Miscellaneous mental health disorders (17 sources) Avoidant restrictive food intake disorder; Translations: [...] 2 Chronic Other aftercare (1 source) Other mcfp (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; Translations: [OTH ALF CURRENT DRUG THERAPY] Onset: 3 Episodic Other circulatory disease (2 sources) Spider nevus; Translations: [Nevus, non-neoplastic] 11-19-2024 Episodic Other connective tissue disease (5 sources) Pain in right foot; Translations: [PAIN IN RIGHT FOOT] Onset: 3 Episodic Other diseases of bladder and urethra (20 sources) Overactive bladder; Translations: [Overactive bladder] Onset: 3 Resolved: 5 04-06-2023 Chronic Other disorders of stomach and duodenum (20 [...] system] Episodic Other gastrointestinal disorders (2 sources) Diarrhea; Translations: [Diarrhea, unspecified] 06-06-2025 Episodic Other gastrointestinal disorders (2 sources) Passing flatus; Translations: [Flatulence] 06-06-2025 Episodic Other [...] hypersomnia; Translations: [Hypersomnia, unspecified] Onset: 12-07-2020 Resolved: 08-18-2025 12-19-2023 Chronic Residual codes; unclassified (20 sources) History [...] 07-16-20 FREE SAUL/LAMBD RATIO 0.88 Normal 0.26-1.65 [facility] Comment on above: Performed By: #### 3 5275-7, 81468-4, 8014-3, 5193-8, 6476-6 #### [facility] ([id number]) [address], [address] [place] [address] FREE KAPPA LT CHAINS 1.69 mg/dL Normal 0.33-1.94 [facility] Comment on above: Performed By: #### 3 5275-7, 00867-8, 8014-3, 5193-8, 6476-6 #### [facility] ([id number]) [address], [address] [place] [address] FREE LAMBDA LT CHAINS 1.93 mg/dL Normal 0.57-2.[address] [facility] Comment on above: Performed By: #### 3 5275-7, 70064-9, 8014-3, 5193-8, 6476-6 #### [facility] ([id number]) [address], [address] [place] [address] METHYLMALONIC ACID, QN, Armando 07-16-2025 METHYLMALONIC ACID, QN, P 0.09 nmol/mL Normal <=0.40 [facility] Comment on above: Result Comment: ADDITIONAL INFORMATION This test was developed and its performance characteristics determined by [facility] in a manner consistent with CLIA requirements. This test has not been cleared or approved by the U.S. Food and Drug Administration. Test Performed by: [facility] - [address] [address] [employer]: Sindi Archibald Ph.D.; CLIA# [id number] Performed By: #### 3 5275-7, 76476-8, 8014-3, 5193-8, 6476-6 #### [facility] ([id number]) [address], [facility] [address] [place] [address] SERUM IMMUNOFIXATIONon 07-16 IgA [Mass/Vol] 213 mg/dL Normal 68-378 [facility] Comment on above: Performed By: #### 3 5275-7, 04102-3, 8014-3, 5193-8, 6476-6 #### [facility] ([id number]) [address], [address] [place] [address] IgG [Mass/Vol] 691 mg/dL Normal 635-1741 [facility] Comment on above: Performed By: #### 3 5275-7, 28943-9, 8014-3, 5193-8, 6476-6 #### [facility] ([id number]) [address], [address] [place] [address] IgM [Mass/Vol] 66 mg/dL Normal 45-281 [facility] Comment on above: Performed By: #### 3 5275-7, 99583-1, 8014-3, 5193-8, 6476-6 #### [facility] ([id number]) [address], [address] [place] [address] IMMUNOFIX INTERP Unremarkable pattern and quantitation, no monoclonal bands Normal [facility] Comment on above: Performed By: #### 3 5275-7, 93708-3, 8014-3, 5193-8, 6476-6 #### [facility] ([id number]) [address], [facility] [address] [place] [address] VITAMIN B12on 07-16-2025 Cobalamin (Vitamin B12) [Mass/Vol] 730 pg/mL Normal 180-914 [facility] Comment on above: Performed By: #### 3 5275-7, 94099-2, 8014-3, 5193-8, 6476-6 #### [facility] ([id number]) [address] [place] [address] BI MAMMOGRAM SCREENING TOMOS YNTHESIS BILATERALon 07-11-2025 [...] taken Amount of lidocaine used: 0.7 cc PressPadS [employer] [facility] MR lumbar spine wo conon MR lumbar spine wo con [facility] [place] [id number] MRI Report Signed Patient: Mary Leal MR#: [id number] : 1970 Acct:[id number] Age/Sex: 55 / F ADM Date: 07/01/25 Loc: [facility] Room: Type: [facility] Attending Dr: Monica IBARRA Copies to: [...] Garcia M.D. 07/01/2025 3:21 PM Dictation Location: [place] [address] Transcribed By: [facility] 07/01/25 1521 Dictated By: Howie Garcia II, MD 07/01/25 1514 Signed By: 07/01/25 1521 Normal [facility] Magnetic resonance imaging r eportOrdered By: Howie Garcia on 07-01-2025 Study report [facility] [place] [address] [place] [address] MRI Report Signed Patient: Mary Leal MR#: [id number] : 1970 Acct:[id number] Age/Sex: 55 / F ADM Date: 5 [facility]: Type: [facility] Attending Dr: Monica IBARRA Copies to: [...] Garcia M.D. 07/01/2025 3:21 PM Dictation Location: [facility]--17 Transcribed By: [facility] 07/01/25 1521 Dictated By: Howie Garcia II, MD 07/01/25 1514 Signed By: 07/01/25 1521 [facility] Work Phone: XR FOOT RT MIN 3Von 06-25-[address] [place] [address] XRay Report Signed Patient: MARY LEAL MR#: [id number] : 1970 Acct:[id number] Age/Sex: 55 / F ADM Date: 06/25/25 Loc: RAD Attending Dr: Sade Felix D.P.M. Ordering Physician: Sade Felix D.P.M. Date of Service: 06/25/25 Procedure(s): XR foot RT min 3V Accession Number(s): [id number] cc: Sade Felix D.P.M.; Isatu GÓMEZ [place] [address] Patient Name: MARY LEAL MRN: [id number] date: 1970 Sex: F Assigned Patient Location: RAD Current Patient Location: RAD Accession/Order Number: [id number] Exam Date: 06/25/2025 12:56 Report Date: 06/25/2025 [...] Weber M.D. 06/25/2025 12:58 PM Dictation Location: [place] [address] Electronically authenticated by: [id number] Y Date: 06/25/2025 12:58 Dictated By: Eitan Weber M.D. Signed By: 06/25/25 1308 DD/ 1258 TD/TT: Museum Preparator: [facility] Radiology, Radiologist, - 06/25/2025 [place] [address] XRay Report Signed Patient: MARY LEAL MR#: [id number] : 1970 Acct:[id number] Age/Sex: 55 / F ADM Date: 06/25/25 Loc: RAD Attending Dr: Sade Felix D.P.M. Ordering Physician: Sade Felix D.P.M. Date of Service: 06/25/25 Procedure(s): XR foot RT min 3V Accession Number(s): [id number] cc: Sade Felix D.P.M.; Isatu GÓMEZ [address] [address] Patient Name: MARY LEAL MRN: [facility]:[id number] date: 1970 Sex: F Assigned Patient Location: [facility] Current Patient Location: RAD Accession/Order Number: [id number] Exam Date: 06/25/2025 12:56 Report Date: 06/25/2025 [...] Weber M.D. 06/25/2025 12:58 PM Dictation Location: [place] [address] Electronically authenticated by: [id number] Y Date: 06/25/2025 12:58 Dictated By: Eitan Weber M.D. Signed By: 06/25/25 1301 DD/ 1258 TD/TT: Museum Preparator: [facility] Radiology Study observation (narrative) [facility] XR FOOT RT MIN 3VOrdered By: Radiologist Radiology on 06-25-2025 [facility] [employer] Work Phone: XR Tibia and Fibula - right 2 [employer] 06-25-2025 [place] [address] XRay Report Signed Patient: MARY LEAL MR#: [id number] : 1970 Acct:[id number] Age/Sex: 55 / F ADM Date: 06/25/25 Loc: RAD Attending Dr: Sade Felix D.P.M. Ordering Physician: Sade Felix D.P.M. Date of Service: 06/25/25 Procedure(s): XR tibia fibula RT 2V Accession Number(s): [id number] cc: Sade Felix D.P.M.; Isatu GÓMEZ [place] [id number] Patient Name: MARY LEAL MRN: [id number] date: 1970 Sex: F Assigned Patient Location: [facility] Current Patient Location: [facility] Accession/Order Number: [id number] Exam Date: 06/25/2025 13:03 Report Date: 06/25/2025 [...] Bullard M.D. 06/25/2025 1:05 PM Dictation Location: [place] [address] Electronically authenticated by: [id number] Y Date: 06/25/2025 13:05 Dictated By: Andres Bullard D.O. Signed By: 06/25/25 1308 DD/ 1305 TD/TT: Museum Preparator: [facility] Radiology, Radiologist, MD - 06/25/2025 [place] [address] XRay Report Signed Patient: MARY LEAL MR#: [id number] : 1970 Acct:[id number] Age/Sex: 55 / F ADM Date: 06/25/25 Loc: [facility] Attending Dr: Sade Felix D.P.M. Ordering Physician: Sade Felix D.P.M. Date of Service: 06/25/25 Procedure(s): XR tibia fibula RT 2V Accession Number(s): [id number] cc: Sade Felix D.P.M.; Isatu GÓMEZ [place] [id number] Patient Name: MARY LEAL MRN: [facility]:[id number] date: 1970 Sex: F Assigned Patient Location: [facility] Current Patient Location: [facility] Accession/Order Number: [id number] Exam Date: 06/25/2025 13:03 Report Date: 06/25/2025 [...] Bullard M.D. 06/25/2025 1:05 PM Dictation Location: [place] [address] Electronically authenticated by: [id number] Y Date: 06/25/2025 13:05 Dictated By: Andres Bullard D.O. Signed By: 06/25/25 1308 DD/ 1305 TD/TT: Museum Preparator: [facility] Radiology Study observation (narrative) [facility] XR Tibia and Fibula - right 2 ViewsOrdered By: Radiologist Radiology on 06-25-2025 [facility] [employer] Work Phone: PROTEIN ELECTROPHORESIS, URI NEon 05-14-2025 URINE PROTEIN ELECTROPHORESIS INTERP Unremarkable protein distribution, no monoclonal bands Normal [facility] Comment on above: Performed By: #### 3 5275-7, 18624-1, 8014-3, 5193-8, 6476-6 #### [facility] ([id number]) [facility], [address] [place] [address] COPPER, Son 05-13-2025 COPPER 110 mcg/dL Normal 77-206 [facility] Comment on above: Result Comment: ADDITIONAL INFORMATION This test was developed and its performance characteristics determined by [facility] in a manner consistent with CLIA requirements. This test has not been cleared or approved by the U.S. Food and Drug Administration. Test Performed by: [facility] - [facility] [address] [place] [address] [employer]: Sindi Archibald Ph.D.; CLIA# [id number] Performed By: #### 3 5275-7, 10085-4, 8014-3, 5193-8, 6476-6 #### [facility] ([id number]) [address] [place] [address] FOLATEon 05-13-2025 FOLIC ACID >^25.0 Normal >5.8 [facility] Comment on above: Performed By: #### F MOISES #### [facility] ([facility]) [address] [place] [address] VIR HEAVY METALS SCRN WITH SARAH Johnson 05-13-2025 ARSENIC, B <1 Normal <13 [facility] Comment on above: Result Comment: ADDITIONAL INFORMATION This test was developed and its performance characteristics determined by [facility] in a manner consistent with CLIA requirements. This test has not been cleared or approved by the U.S. Food and Drug Administration. Performed By: #### 3 5275-7, 68507-4, 8014-3, 5193-8, 6476-6 #### [facility] ([id number]) [address], [address] [place] [address] CADMIUM, B <0.2 Normal <5.0 [facility] Comment on above: Result Comment: ADDITIONAL INFORMATION This test was developed and its performance characteristics determined by [facility] in a manner consistent with CLIA requirements. This test has not been cleared or approved by the U.S. Food and Drug Administration. Performed By: #### 3 5275-7, 07747-3, 8014-3, 5193-8, 6476-6 #### [facility] ([id number]) [address], [address] [place] [address] HEAVY METAL VENOUS/CAPILLARY Venous Normal [facility] Comment on above: Performed By: #### 3 5275-7, 87775-3, 8014-3, 5193-8, 6476-6 #### [facility] ([id number]) [address], [address] [place] [address] LEAD, B <1.0 Normal <3.5 [facility] Comment on above: Result Comment: ADDITIONAL INFORMATION Testing performed by Triple Quadrupole Inductively Coupled Plasma-Mass Spectrometry (ICP-MS/MS). This test was developed and its performance characteristics determined by [facility] in a manner consistent with CLIA requirements. This test has not been cleared or approved by the U.S. Food and Drug Administration. Performed By: #### 3 5275-7, 45302-8, 8014-3, 5193-8, 6476-6 #### [facility] ([id number]) [address], [address] [place] [address] MERCURY, B <1 Normal <10 [facility] Comment on above: Result Comment: ADDITIONAL INFORMATION This test was developed and its performance characteristics determined by [facility] in a manner consistent with CLIA requirements. This test has not been cleared or approved by the U.S. Food and Drug Administration. Performed By: #### 3 5275-7, 87205-3, 8014-3, 5193-8, 6476-6 #### [facility] ([id number]) [address], [address] [place] [address] HEMOGLOBIN A1Con 05-13-2025 Glucose [Mass/Vol] 103 mg/dL Normal [facility] Comment on above: Performed By: #### H A1C #### [facility] ([facility]) [address] [place] [address] VIR HbA1c (Bld) [Mass fraction] 5.2 % Normal 4.4-5.6 [facility] Comment on above: Result Comment: ADA Guidelines Result HgbA1c Normal : less than 5.7 % Prediabetes : 5.7 % to 6.4 % Diabetes : > 6.4 % Use with caution in patients with abnormal hemoglobin variants as the half-life of red blood cells and in vivo glycation rates are affected. Performed By: #### H A1C #### [facility] ([facility]) [address] [place] [address] VIR PROTEIN ELECTROPHORESIS, SER UMon 05-13-2025 Albumin [Mass/Vol] 3.9 g/dL Normal 3.4-5.3 [facility] Comment on above: Performed By: #### S PE #### [facility] ([facility]) [address] [place] [address] VIR ALPHA 1 GLOBULIN 0.3 g/dL Normal 0.1-0.4 [facility] Comment on above: Performed By: #### S PE #### [facility] ([facility]) [address] [place] [address] VIR ALPHA 2 GLOBULIN 0.6 g/dL Normal 0.4-1.1 [facility] Comment on above: Performed By: #### S PE #### [facility] ([facility]) [address] [place] [address] VIR BETA GLOBULIN 0.8 g/dL Normal 0.5-1.2 [facility] Comment on above: Performed By: #### S PE #### [facility] ([facility]) [address] [place] [address] VIR GAMMA GLOBULIN 0.7 g/dL Normal 0.5-1.6 [facility] Comment on above: Performed By: #### S PE #### [facility] ([facility]) [address] [place] [address] VIR Protein [Mass/Vol] 6.2 g/dL Normal 6.0-8.0 [facility] Comment on above: Performed By: #### S PE #### [facility] ([facility]) [address] [place] [address] VIR PROTEIN ELECTROPHORESIS INTERP Unremarkable protein distribution, no monoclonal bands Normal [facility] Comment on above: Performed By: #### S PE #### [facility] ([facility]) [address] [place] [address] VIR THIAMIN (VITAMIN B1), WBon 0 05-13-2025 THIAMIN (VITAMIN B1), WB 114 nmol/L Normal 70-180 [facility] Comment on above: Result Comment: ADDITIONAL INFORMATION This test was developed and its performance characteristics determined by [facility] in a manner consistent with CLIA requirements. This test has not been cleared or approved by the U.S. Food and Drug Administration. Test Performed by: [facility] [address] [place] [address] [employer]: Sindi Archibald Ph.D.; CLIA# [id number] Performed By: #### 3 5275-7, 57044-5, 8014-3, 5193-8, 6476-6 #### [facility] ([id number]) [address], [address] [place] [address] TSHon 05-13-2025 TSH 3.16 uIU/mL Normal 0.49-4.67 [facility] Comment on above: Performed By: #### T SH #### [facility] ([facility]) [address] [place] [address] VIR VITAMIN B12on 05-13-2025 Cobalamin (Vitamin B12) [Mass/Vol] 214 pg/mL Normal 180-914 [facility] Comment on above: Performed By: #### B 12 #### [facility] ([facility]) [address] [place] [address] VIR VITAMIN B6 PROFILE (PLP AND PA), Armando 05-13-2025 PYRIDOXAL 5-PHOSPHATE (PLP), P 10 mcg/L Normal 5-50 [facility] Comment on above: Result Comment: ADDITIONAL INFORMATION This test was developed and its performance characteristics determined by [facility] in a manner consistent with CLIA requirements. This test has not been cleared or approved by the U.S. Food and Drug Administration. Performed By: #### 3 5275-7, 86092-0, 8014-3, 5193-8, 6476-6 #### [facility] ([id number]) [address] [place] [address], [address] [place] [address] PYRIDOXIC ACID (PA), P 6 mcg/L Normal 3-30 [facility] Comment on above: Result Comment: ADDITIONAL INFORMATION This test was developed and its performance characteristics determined by [facility] in a manner consistent with CLIA requirements. This test has not been cleared or approved by the U.S. Food and Drug Administration. Test Performed by: [facility] [address] [place] [address] [employer]: Sindi Archibald Ph.D.; CLIA# [id number] Performed By: #### 3 5275-7, 13730-9, 8014-3, 5193-8, 6476-6 #### [facility] ([id number]) [address] [place] [address] Magnetic resonance imaging r eportOrdered By: Eitan Weber on 02-25-2025 Study [place] [address] MRI Report Signed Patient: Mary Leal MR#: [id number] : 1970 Acct:[id number] Age/Sex: 54 / F ADM Date: 5 Loc: [facility] Dr: Monica IBARRA Copies to: FRED Schafer~ Ordering Provider: FRED Schafer Date of Service: 02/25/25 MR/MR thoracic spine wo con: THORACIC RADICULOPATHY ([id number]) XR/XR pre/post mri xray: THOARCIC RADICULOPATHY MRI [...] Eitan Weber M.D.02/25/2025 10:14 AM Dictation Location: [place] [address] Transcribed By: [facility] 02/25/25 1014 Dictated By: Eitan Weber MD 02/25/25 1008 Signed By: 02/25/25 1014 [facility] Work Phone: XR pre/post mri xrayon 02-25 XR pre/post mri xray [facility] [place] [address] [place] [address] MRI Report Signed Patient: Mary Leal MR#: [id number] : 1970 Acct:[id number] Age/Sex: 54 / F ADM Date: 02/25/25 Loc: [facility] Room: Type: [facility] Attending Dr: Monica IBARRA Copies to: FRED Schafer Ordering Provider: FRED Schafer Date of Service: 02/25/25 MR/MR thoracic spine wo con: THORACIC RADICULOPATHY ([id number]) XR/XR pre/post mri xray: THOARCIC RADICULOPATHY MRI [...] Eitan Weber M.D.02/25/2025 10:14 AM Dictation Location: [place] [address] Transcribed By: [facility] 02/25/25 1014 Dictated By: Eitan Weber MD 02/25/25 1008 Signed By: 02/25/25 1014 Normal [facility] Alanine aminotransferase [En zymatic activity/volume] in Serum or PlasmaOrdered By: Everett Valdez on 02-17-2025 ALT [Catalytic activity/Vol] Alanine aminotransferase [Enzymatic activity/volume] in Serum or Plasma [facility] ALT [Catalytic activity/Vol] 38 U/L Normal [facility] Comment on above: Performed By: #### C BC #### [address] Albumin [Mass/volume] in Ser um or Plasma by Bromocresol green (BCG) dye binding methoOrdered By: Everett Valdez on 02-17-2025 Albumin BCG dye [Mass/Vol] Albumin [Mass/volume] in Serum or Plasma by Bromocresol green (BCG) dye binding metho 3.5-5.7 [facility] Albumin BCG dye [Mass/Vol] 4.2 g/dL 3.5-5.7 [facility] Alkaline phosphatase [Enzyma tic activity/volume] in Serum or PlasmaOrdered By: Everett Valdez on 02-17-2025 ALP [Catalytic activity/Vol] Alkaline phosphatase [Enzymatic activity/volume] in Serum or Plasma 34-104 [facility] ALP [Catalytic activity/Vol] 96 U/L Normal 34-104 [facility] Comment on above: Performed By: #### C BC #### [address] Aspartate aminotransferase [ Enzymatic activity/volume] in Serum or PlasmaOrdered By: Everett Valdez on 02-17-2025 AST [Catalytic activity/Vol] Aspartate aminotransferase [Enzymatic activity/volume] in Serum or Plasma 13-39 [facility] AST [Catalytic activity/Vol] 34 U/L Normal 13-39 [facility] Comment on above: Performed By: #### C BC #### [facility] [address] [place] [address] Basophils Auto (Bld) [#/Vol] Ordered By: Everett Valdez on 02-17-2025 Basophils (Bld) [#/Vol] Automated basophil count 0.0-0.2 [facility] Basophils [#/volume] in Bloo d by Automated countOrdered By: Everett Valdez on 02-17-2025 Basophils (Bld) [#/Vol] 0.0 10*3/uL Normal 0.0-0.2 [facility] Comment on above: Performed By: #### C BC #### [place] [address] [place] Basophils/100 WBC Auto (Bld) Ordered By: Everett Valdez on 02-17-2025 Basophils/100 WBC (Bld) Automated basophil % . [facility] Basophils/100 leukocytes in Blood by Automated countOrdered By: Everett Valdez on 02-17-2025 Basophils/100 WBC (Bld) 0.7 % Normal . [facility] Comment on above: Performed By: #### C BC #### [address] Bilirubin.total [Mass/volume ] in Serum or PlasmaOrdered By: Everett Valdez on 02-17-2025 Bilirubin [Mass/Vol] Bilirubin.total [Mass/volume] in Serum or Plasma 0.3-1.0 [facility] Bilirubin [Mass/Vol] 0.3 mg/dL Normal 0.3-1.0 [facility] Comment on above: Performed By: #### C BC #### [address] C reactive protein [Mass/vol ume] in Serum or PlasmaOrdered By: Everett Valdez on 02-17-2025 CRP [Mass/Vol] C reactive protein [Mass/volume] in Serum or Plasma 0.0-0.5 [facility] CRP [Mass/Vol] < 0.5 mg/dL 0.0-0.5 [facility] C-Reactive Proteinon 025 CRP [Mass/Vol] mg/L Normal 0.0-0.5 [facility] Comment on above: Result Comment: PERF ORMED BY: [place] [address] PATHOLOGIST CREATIVE PROJECT MANAGER PAZ GUILLERMO M.D. Performed By: #### C BC #### [address] Calcium [Mass/volume] in Ser um or PlasmaOrdered By: Everett Valdez on 02-17-2025 Calcium [Mass/Vol] Calcium [Mass/volume ] in Serum or Plasma 8.6-10.3 [facility] Calcium [Mass/Vol] 8.9 mg/dL Normal 8.6-10.3 [facility] Comment on above: Performed By: #### C BC #### [address] Carbon dioxide, total [Moles /volume] in Serum or PlasmaOrdered By: Everett Valdez on 02-17-2025 CO2 [Moles/Vol] Carbon dioxide, tota l [Moles/volume] in Serum or Plasma 21.0-31.0 [facility] CO2 [Moles/Vol] 30.2 mmol/L Normal 21.0-31.0 [facility] Comment on above: Performed By: #### C BC #### [address] Chloride [Moles/volume] in S jay or PlasmaOrdered By: Everett Valdez on 02-17-2025 Chloride [Moles/Vol] Chloride [Moles/volume] in Serum or Plasma 98-107 [facility] Chloride [Moles/Vol] 104 mmol/L Normal 98-107 [facility] Comment on above: Performed By: #### C BC #### [address] Complete Blood Count Auto Di ffon 02-17-2025 Mean Corpuscular HGB Conc 34.0 g/dL Normal 32.0-35.0 [facility] Comment on above: Performed By: #### C BC #### [address] NRBC% 0.1 /100{WBC} Normal 0-0.5 [facility] Comment on above: Performed By: #### C BC #### [address] Comprehensive Metabolic Pane boyd 02-17-2025 Albumin [Mass/Vol] 4.2 g/dL Normal 3.5-5.7 [facility] Comment on above: Performed By: #### C BC #### [place] [address] [place] GFR/1.73 sq M.predicted MDRD (S/P/Bld) [Vol rate/Area] mL/min/{1.73_m2} Normal [facility] Comment on above: Performed By: #### C BC #### [place] [address] [place] Creatine kinase [Enzymatic a ctivity/volume] in Serum or PlasmaOrdered By: Everett Valdez on 02-17-2025 CK [Catalytic activity/Vol] Creatine kinase [Enzymatic activity/volume] in Serum or Plasma High 30-223 [facility] CK [Catalytic activity/Vol] 539 U/L High 30-223 [facility] Comment on above: Result Comment: PERF ORMED BY: [place] [address] PATHOLOGIST CREATIVE PROJECT MANAGER PAZ GUILLERMO M.D. Performed By: #### C BC #### [facility] [address] [place] [address] Creatinine [Mass/volume] in Serum or PlasmaOrdered By: Everett Valdez on 02-17-2025 Creatinine [Mass/Vol] Creatinine [Mass/volume] in Serum or Plasma 0.60-1.20 [facility] Creatinine [Mass/Vol] 0.61 mg/dL Normal 0.60-1.[address] [facility] Comment on above: Performed By: #### C BC #### [facility] [address] [place] [address] Eosinophils Auto (Bld) [#/Vo l]Ordered By: Everett Valdez on 02-17-2025 Eosinophils (Bld) [#/Vol] Automated eosinophil count 0.0-0.45 [facility] Eosinophils [#/volume] in Bl ood by Automated countOrdered By: Everett Valdez on 02-17-2025 Eosinophils (Bld) [#/Vol] 0.1 10*3/uL Normal 0.0-0.45 [facility] Comment on above: Performed By: #### C BC #### [facility] [address] [place] [address] [place] Eosinophils/100 WBC Auto (Bl d)Ordered By: Everett Valdez on 02-17-2025 Eosinophils/100 WBC (Bld) Automated eosinophil % . [facility] Eosinophils/100 leukocytes i n Blood by Automated countOrdered By: Everett Valdez on 02-17-2025 Eosinophils/100 WBC (Bld) 1.9 % Normal . [facility] Comment on above: Performed By: #### C BC #### [address] Erythrocyte Sedimentation Ra lian 02-17-2025 ESR (Bld) [Velocity] 4 mm/h Normal 0-29 [facility] Comment on above: Result Comment: PERF ORMED BY: [address] [place] [address] PATHOLOGIST CREATIVE PROJECT MANAGER PAZ GUILLERMO M.D. Performed By: #### B MP #### [address] Erythrocyte distribution wid th Auto (RBC) [Ratio]Ordered By: Everett Valdez on 02-17-2025 Erythrocyte distribution width (RBC) [Ratio] Erythrocyte distribution width [Ratio] by Automated count 11.9-15.3 [facility] Erythrocyte distribution wid th [Ratio] by Automated countOrdered By: Everett Valdez on 02-17-2025 Erythrocyte distribution width (RBC) [Ratio] 13.6 % Normal 11.9-15.3 [facility] Comment on above: Performed By: #### C BC #### [address] Erythrocyte sedimentation ra te by Photometric methodOrdered By: Everett Valdez on 02-17-2025 ESR Photometric method (Bld) [Velocity] Erythrocyte sedimentation rate by Photometric method 0-29 [facility] ESR Photometric method (Bld) [Velocity] 4 mm/hr 0-29 [facility] Erythrocytes [#/volume] in B lood by Automated countOrdered By: Everett Valdez on 02-17-2025 RBC (Bld) [#/Vol] 4.93 10*6/uL Normal 3.60-5.00 [facility] Comment on above: Performed By: #### C BC #### [address] Globulin Calc (S) [Mass/Vol] Ordered By: Everett Valdez on 02-17-2025 Globulin (S) [Mass/Vol] Serum globulin measurement by calculation (mass/volume) [facility] Glucose [Mass/volume] in Ser um or PlasmaOrdered By: Everett Valdez on 02-17-2025 Glucose [Mass/Vol] Glucose [Mass/volume ] in Serum or Plasma 70-100 [facility] Comment on above: ADA recommended refe rence rangeRandom Glucose Reference Range is dependent on time and content of last meal. Glucose of more than 200 mg/dL in a nonstressed, ambulatory subject supports the diagnosis of Diabetes Mellitus. Glucose [Mass/Vol] 94 mg/dL Normal 70-100 [facility] Comment on above: ADA recommended refe rence rangeRandom Glucose Reference Range is dependent on time and content of last meal. Glucose of more than 200 mg/dL in a nonstressed, ambulatory subject supports the diagnosis of Diabetes Mellitus. Result Comment: [place] Glucose Reference Range is dependent on time and content of last meal. Glucose of more than 200 mg/dL in a nonstressed, ambulatory subject supports the diagnosis of Diabetes Mellitus. ADA recommended reference range Performed By: #### C BC #### [address] Hematocrit Auto (Bld) [Volum e fraction]Ordered By: Everett Valdez on 02-17-2025 Hematocrit (Bld) [Volume fraction] Hematocrit [Volume Fraction] of Blood by Automated count 34.0-46.4 [facility] Hematocrit [Volume Fraction] of Blood by Automated countOrdered By: Everett Valdez on 02-17-2025 Hematocrit (Bld) [Volume fraction] 41.0 % Normal 34.0-46.4 [facility] Comment on above: Performed By: #### C BC #### [address] Hemoglobin [Mass/volume] in BloodOrdered By: Everett Valdez on 02-17-2025 Hemoglobin (Bld) [Mass/Vol] Hemoglobin [Mass/volume] in Blood 11.8-15.4 [facility] Hemoglobin (Bld) [Mass/Vol] 14.0 g/dL Normal 11.8-15.4 [facility] Comment on above: Performed By: #### C BC #### [address] [place] [address] [facility] LDH Lactate Dehydrogenaseon 02-17-2025 LDH Lactate Dehydrogenase 219 U/L Normal 140-271 [facility] Comment on above: Performed By: #### C BC #### [place] [id number] [facility] Lactate dehydrogenase [Enzym atic activity/volume] in Serum or Plasma by Lactate to pyOrdered By: Everett Valdez on 02-17-2025 LDH Lactate to pyruvate reaction [Catalytic activity/Vol] Lactate dehydrogenase [Enzymatic activity/volume] in Serum or Plasma by Lactate to py 140-271 [facility] LDH Lactate to pyruvate reaction [Catalytic activity/Vol] 219 U/L 140-271 [facility] Leukocytes [#/volume] correc herbert for nucleated erythrocytes in Blood by Automated counOrdered By: Everett Valdez on 02-17-2025 WBC corrected for nucl RBC Auto (Bld) [#/Vol] Leukocytes [#/volume] corrected for nucleated erythrocytes in Blood by Automated coun 3.8-11.6 [facility] WBC corrected for nucl RBC Auto (Bld) [#/Vol] 4.9 10*3/uL 3.8-11.6 [facility] Leukocytes [#/volume] in Blo od by Automated countOrdered By: Everett Valdez on 02-17-2025 WBC (Bld) [#/Vol] 4.9 10*3/uL Normal 3.8-11.6 [facility] Comment on above: Performed By: #### C BC #### [facility] [address] [place] [address] [place] Lymphocytes Auto (Bld) [#/Vo l]Ordered By: Everett Valdez on 02-17-2025 Lymphocytes (Bld) [#/Vol] Lymphocytes [#/volume] in Blood by Automated count 1.00-4.8 [facility] Lymphocytes [#/volume] in Bl ood by Automated countOrdered By: Everett Valdez on 02-17-2025 Lymphocytes (Bld) [#/Vol] 1.4 10*3/uL Normal 1.00-4.8 [facility] Comment on above: Performed By: #### C BC #### [address] Lymphocytes/100 WBC Auto (Bl d)Ordered By: Everett Valdez on 02-17-2025 Lymphocytes/100 WBC (Bld) Lymphocytes/100 leukocytes in Blood by Automated count . [facility] Lymphocytes/100 leukocytes i n Blood by Automated countOrdered By: Everett Valdez on 02-17-2025 Lymphocytes/100 WBC (Bld) 29.2 % Normal . [facility] Comment on above: Performed By: #### C BC #### [address] MCH Auto (RBC) [Entitic mass ]Ordered By: Everett Valdez on 02-17-2025 MCH (RBC) [Entitic mass] MCH [Entitic mass] by Automated count 24.7-34.3 [facility] MCH [Entitic mass] by Automa herbert countOrdered By: Everett Valdez on 02-17-2025 MCH (RBC) [Entitic mass] 28.3 pg Normal 24.7-34.3 [facility] Comment on above: Performed By: #### C BC #### [address] MCHC Auto (RBC) [Mass/Vol]Or dered By: Everett Valdez on 02-17-2025 MCHC (RBC) [Mass/Vol] MCHC [Mass/volume] by Automated count 32.0-35.0 [facility] MCHC (RBC) [Mass/Vol] 34.0 g/dL 32.0-35.[address] [facility] MCV Auto (RBC) [Entitic vol] Ordered By: Everett Valdez on 02-17-2025 MCV (RBC) [Entitic vol] MCV [Entitic volume] by Automated count 80-100 [facility] MCV [Entitic volume] by Auto mated countOrdered By: Everett Valdez on 02-17-2025 MCV (RBC) [Entitic vol] 83.3 fL Normal 80-100 [facility] Comment on above: Performed By: #### C BC #### [facility] [address] [place] [address] Monocytes Auto (Bld) [#/Vol] Ordered By: Everett Valdez on 02-17-2025 Monocytes (Bld) [#/Vol] Automated blood monocyte count 0.0-0.8 [facility] Monocytes [#/volume] in Bloo d by Automated countOrdered By: Everett Valdez on 02-17-2025 Monocytes (Bld) [#/Vol] 0.2 10*3/uL Normal 0.0-0.8 [facility] Comment on above: Performed By: #### C BC #### [facility] [address] Monocytes/100 WBC Auto (Bld) Ordered By: Everett Valdez on 02-17-2025 Monocytes/100 WBC (Bld) Automated monocyte % . [facility] Monocytes/100 leukocytes in Blood by Automated countOrdered By: Everett Valdez on 02-17-2025 Monocytes/100 WBC (Bld) 5.0 % Normal . [facility] Comment on above: Performed By: #### C BC #### [facility] [address] Neutrophils Auto (Bld) [#/Vo l]Ordered By: Everett Valdez on 02-17-2025 Neutrophils (Bld) [#/Vol] Neutrophils [#/volume] in Blood by Automated count 1.8-7.7 [facility] Neutrophils [#/volume] in Bl ood by Automated countOrdered By: Everett Valdez on 02-17-2025 Neutrophils (Bld) [#/Vol] 3.1 10*3/uL Normal 1.8-7.7 [facility] Comment on above: Performed By: #### C BC #### [facility] [address] Neutrophils/100 WBC Auto (Bl d)Ordered By: Everett Valdez on 02-17-2025 Neutrophils/100 WBC (Bld) Automated neutrophil % . [facility] Neutrophils/100 leukocytes i n Blood by Automated countOrdered By: Everett Valdez on 02-17-2025 Neutrophils/100 WBC (Bld) 63.2 % Normal . [facility] Comment on above: Performed By: #### C BC #### [facility] [address] No Panel InformationOrdered By: Everett Valdez on 02-17-2025 Estimated GFR (CKD-EPI) > 60.0 mL/Min [facility] Creatinine Clearance (Chem N/A [facility] Nucleated erythrocytes [Pres ence] in Blood by Automated countOrdered By: Everett Valdez on 02-17-2025 Nucleated RBC Auto Ql (Bld) Nucleated erythrocytes [Presence] in Blood by Automated count 0-0.5 [facility] Nucleated RBC Auto Ql (Bld) 0.1 /100{WBC} 0-0.5 [facility] Platelet mean volume Auto (B ld) [Entitic vol]Ordered By: Everett Valdez on 02-17-2025 Platelet mean volume (Bld) [Entitic vol] Platelet mean volume [Entitic volume] in Blood by Automated count 6.3-10.7 [facility] Platelet mean volume [Entiti c volume] in Blood by Automated countOrdered By: Everett Valdez on 02-17-2025 Platelet mean volume (Bld) [Entitic vol] 7.6 fL Normal 6.3-10.7 [facility] Comment on above: Performed By: #### C BC #### [facility] [address] [place] [address] Platelets Auto (Bld) [#/Vol] Ordered By: Everett Valdez on 02-17-2025 Platelets (Bld) [#/Vol] Platelets [#/volume] in Blood by Automated count 150-450 [facility] Platelets [#/volume] in Bloo d by Automated countOrdered By: Everett Valdez on 02-17-2025 Platelets (Bld) [#/Vol] 312 10*3/uL Normal 150-450 [facility] Comment on above: Performed By: #### C BC #### [facility] [address] [place] [address] [place] Potassium [Moles/volume] in Serum or PlasmaOrdered By: Everett Valdez on 02-17-2025 Potassium [Moles/Vol] Potassium [Moles/volume] in Serum or Plasma 3.5-5.1 [facility] Potassium [Moles/Vol] 4.6 mmol/L Normal 3.5-5.[address] [facility] Comment on above: Performed By: #### C BC #### [address] Protein [Mass/volume] in Ser um or PlasmaOrdered By: Everett Valdez on 02-17-2025 Protein [Mass/Vol] Protein [Mass/volume ] in Serum or Plasma Low 6.4-8.9 [facility] Protein [Mass/Vol] 6.3 g/dL Low 6.4-8.9 [facility] Comment on above: Performed By: #### C BC #### [address] RBC Auto (Bld) [#/Vol]Ordere d By: Everett Valdez on 02-17-2025 RBC (Bld) [#/Vol] Erythrocytes [#/volume] in Blood by Automated count 3.60-5.00 [facility] Serum aldolase measurementOr dered By: Everett Valdez on 02-17-2025 Aldolase 11.4 U/L High 3.3-10.3 [facility] Comment on above: Performed at: - [facility] [place] [id number] Director: Erick Neville PhD, Phone: [phone] Result Comment: Perf ormed at: - [facility] [place] [address] [employer]: Erick Neville PhD, Phone: [phone] PERFORMED BY: [place] [address] PATHOLOGIST CREATIVE PROJECT MANAGER PAZ GUILLERMO M.D. Performed By: #### B MP #### [address] Serum globulin measurement b y calculation (mass/volume)Ordered By: Everett Valdez on 02-17-2025 Globulin (S) [Mass/Vol] 2.1 g/dL Normal [facility] Comment on above: Performed By: #### C BC #### [facility] [address] [place] [address] Serum or plasma albumin/glob ulin mass ratioOrdered By: Everett Valdez on 02-17-2025 Albumin/Globulin [Mass ratio] Serum or plasma albumin/globulin mass ratio [facility] Albumin/Globulin [Mass ratio] 2.0 {ratio} Normal [facility] Comment on above: Performed By: #### C BC #### [facility] [address] [place] [address] Serum or plasma anion gap de terminationOrdered By: Everett Valdez on 02-17-2025 Anion gap [Moles/Vol] Serum or plasma an ion gap determination 6.0-15.0 [facility] Anion gap [Moles/Vol] 9.4 mmol/L Normal 6.0-15.[address] [facility] Comment on above: Performed By: #### C BC #### [facility] [address] [place] [address] Serum or plasma myoglobin me asurement (mass/volume)Ordered By: Everett Valdez on 02-17-2025 Myoglobin [Mass/Vol] Serum or plasma myoglobin measurement (mass/volume) [address] Comment on above: Performed at: [facility] [place] [id number] Director: Erick Neville PhD, Phone: [phone] Myoglobin [Mass/Vol] 187 ng/mL [address] Comment on above: Performed at: [facility] [address] [id number] Director: Erick Neville PhD, Phone: [phone] Result Comment: Perf ormed at: [employer] [facility] [place] [id number] [employer]: Erick Neville PhD, Phone: [phone] PERFORMED BY: [place] [address] PATHOLOGIST CREATIVE PROJECT MANAGER PAZ GUILLERMO M.D. Performed By: #### B MP #### [facility] [address] [place] [address] [place] Sodium [Moles/volume] in Ser um or PlasmaOrdered By: Everett Valdez on 02-17-2025 Sodium [Moles/Vol] Sodium [Moles/volume ] in Serum or Plasma 136-145 [facility] Sodium [Moles/Vol] 139 mmol/L Normal 136-145 [facility] Comment on above: Performed By: #### C BC #### [address] Urea nitrogen [Mass/volume] in Serum or PlasmaOrdered By: Everett Valdez on 02-17-2025 Urea nitrogen [Mass/Vol] Urea nitrogen [Mass/volume] in Serum or Plasma - [facility] Urea nitrogen [Mass/Vol] 19 mg/dL Normal 05-30 [facility] Comment on above: Performed By: #### C BC #### [address] WBC Auto (Bld) [#/Vol]Ordere d By: Everett Valdez on 02-17-2025 WBC (Bld) [#/Vol] Leukocytes [#/volume ] in Blood by Automated count 3.8-11.6 [facility] 36on 01-24-2025 36 Attempted to call patient to reschedule canceled [facility] follow up appointment. Normal [facility] XR FOOT RT MIN 3Von 01-03-20 25 [facility] [address] [place] [address] XRay Report Signed Patient: MARY LEAL MR#: [id number] : 1970 Acct:[id number] Age/Sex: 54 / F ADM Date: 01/03/25 Loc: EC Attending Dr: Sade Felix D.P.M. Ordering Physician: Sade Felix D.P.M. Date of Service: 01/03/25 Procedure(s): XR foot RT min 3V Accession Number(s): [id number] cc: Sade Felix D.P.M.; Isatu ÓGMEZ [facility] [place] [id number] Patient Name: MARY LEAL MRN: [facility]:[id number] date: 1970 Sex: F Assigned Patient Location: EC Current Patient Location: Accession/Order Number: [id number] Exam Date: 01/03/2025 12:17 Report Date: 01/03/2025 [...] Makenna Pathak M.D.01/03/2025 12:21 PM Dictation Location: [place] [address] Electronically authenticated by: [id number] Y Date: 01/03/2025 12:21 Dictated By: Makenna Pathak M.D. Signed By: 01/03/25 1223 DD/ 1221 TD/TT: Museum Preparator: [facility] Radiology, Radiologist, MD - 01/03/2025 [facility] [place] [id number] XRay Report Signed Patient: MARY LEAL MR#: [id number] : 1970 Acct:[id number] Age/Sex: 54 / F ADM Date: 01/03/25 Loc: EC Attending Dr: Sade Felix D.P.M. Ordering Physician: Sade Felix D.P.M. Date of Service: 01/03/25 Procedure(s): XR foot RT min 3V Accession Number(s): [id number] cc: Sade Felix D.P.M.; Isatu GÓMEZ [place] [id number] Patient Name: MARY LEAL MRN: [id number] date: 1970 Sex: F Assigned Patient Location: Current Patient Location: Accession/Order Number: [id number] Exam Date: 01/03/2025 12:17 Report Date: 01/03/2025 [...] Makenna Pathak M.D.01/03/2025 12:21 PM Dictation Location: [place] [address] Electronically authenticated by: [id number] Y Date: 01/03/2025 12:21 Dictated By: Makenna Pathak M.D. Signed By: 01/03/25 1223 DD/ 1221 TD/TT: Museum Preparator: [facility] Radiology Study observation (narrative) [facility] XR FOOT RT MIN 3VOrdered By: Radiologist Radiology on 01-03-2025 [facility] [employer] Work Phone: 24 hour urine albumin/total protein ratio by electrophoresisOrdered By: Everett Valdez on 12-16-2024 Albumin Elph (24H U) [Mass fraction] Albumin/Protein.total in 24 hour Urine by Electrophoresis . [facility] 24 hour urine gamma globulin /total protein ratio by electrophoresisOrdered By: Everett Valdez on 12-16-2024 Gamma globulin Elph (24H U) [Mass fraction] Gamma globulin/Protein.total in 24 hour Urine by Electrophoresis . [facility] 24 hour urine protein monocl onal/total protein by electrophoresisOrdered By: Everett Valdez on 12-16-2024 Protein.monoclonal Elph (24H U) [Mass fraction] Protein.monoclonal/Pro tein.total in 24 hour Urine by Electrophoresis Not Observed [facility] [place]UYITA Antinuclear Antibodieson 12-16-2024 Antinuclear Abs, IFA Negative Normal . [facility] Comment on above: Result Comment: Nega tive <1:80 Borderline 1:80 Positive >1:80 ICAP nomenclature: AC-0 For more information about Hep-2 cell patterns use ANApatterns.org, the official website for the International Consensus on Antinuclear Antibody ([place]) Patterns (ICAP). Performed at: [facility] [address] [id number] [employer]: Erick Neville PhD, Phone: [phone] Performed By: #### P P #### [address] #### LUPANTCOAG #### [facility] , Alanine aminotransferase [En zymatic activity/volume] in Serum or PlasmaOrdered By: Everett Valdez on 12-16-2024 ALT [Catalytic activity/Vol] Alanine aminotransferase [Enzymatic activity/volume] in Serum or Plasma 7-52 [facility] Albumin [Mass/volume] in Ser um or Plasma by Bromocresol green (BCG) dye binding methoOrdered By: Everett Valdez on 12-16-2024 Albumin BCG dye [Mass/Vol] Albumin [Mass/volume] in Serum or Plasma by Bromocresol green (BCG) dye binding metho 3.5-5.7 [facility] Alkaline phosphatase [Enzyma tic activity/volume] in Serum or PlasmaOrdered By: Everett Valdez on 12-16-2024 ALP [Catalytic activity/Vol] Alkaline phosphatase [Enzymatic activity/volume] in Serum or Plasma 34-104 [facility] Antithyroglobulin Abon 12-16 Antithyroglobulin Ab <1.0 Normal 0.0-0.9 [facility] Comment on above: Result Comment: Thyr oglobulin Antibody measured by Jorje Cyril Methodology It should be noted that the presence of thyroglobulin antibodies may not be pathogenic nor diagnostic, especially at very low levels. The assay foreign food cook specialty has found that four percent of individuals without evidence of thyroid disease or autoimmunity will have positive TgAb levels up to 4 IU/mL. Performed at: [address] [id number] [employer]: Erick Neville PhD, Phone: [phone] Performed By: #### C BC #### [place] [id number] [facility] Appearance of UrineOrdered B y: Everett Valdez on 12-16-2024 Appearance (U) Urine appearance Clear [facility] Aspartate aminotransferase [ Enzymatic activity/volume] in Serum or PlasmaOrdered By: Everett Valdez on 12-16-2024 AST [Catalytic activity/Vol] Aspartate aminotransferase [Enzymatic activity/volume] in Serum or Plasma 13-39 [facility] Bacteria [Presence] in Urine by AutomatedOrdered By: Everett Valdez on 12-16-2024 Bacteria Auto Ql (U) Bacteria [Presence] in Urine by Automated None Seen [facility] Basophils Auto (Bld) [#/Vol] Ordered By: Everett Valdez on 12-16-2024 Basophils (Bld) [#/Vol] Automated basophil count 0.0-0.2 [facility] Basophils/100 WBC Auto (Bld) Ordered By: Everett Valdez on 12-16-2024 Basophils/100 WBC (Bld) Automated basophil % . [facility] Bilirubin Test strip Ql (U)O rdered By: Everett Valdez on 12-16-2024 Bilirubin Ql (U) Bilirubin.total [Presence] in Urine by Test strip Negative [facility] Bilirubin.total [Mass/volume ] in Serum or PlasmaOrdered By: Everett Valdez on 12-16-2024 Bilirubin [Mass/Vol] Bilirubin.total [Mass/volume] in Serum or Plasma 0.3-1.0 [facility] C reactive protein [Mass/vol ume] in Serum or PlasmaOrdered By: Everett Valdez on 12-16-2024 CRP [Mass/Vol] C reactive protein [Mass/volume] in Serum or Plasma 0.0-0.5 [facility] C-Reactive Proteinon 025 CRP [Mass/Vol] mg/L Normal 0.0-0.5 [facility] Comment on above: Performed By: #### E SR, TSH3, CK, ADDONUAPLUS, CBC, CRP, CMP, T4F #### [facility] [address] #### RPR W RFX, ALDOLASE, GUZMAN,URINE, UPE RAND #### [facility] , Calcium [Mass/volume] in Ser um or PlasmaOrdered By: Everett Valdez on 12-16-2024 Calcium [Mass/Vol] Calcium [Mass/volume ] in Serum or Plasma 8.6-10.3 [facility] Carbon dioxide, total [Moles /volume] in Serum or PlasmaOrdered By: Everett Valdez on 12-16-2024 CO2 [Moles/Vol] Carbon dioxide, tota l [Moles/volume] in Serum or Plasma 21.0-31.0 [facility] Chloride [Moles/volume] in S jay or PlasmaOrdered By: Everett Valdez on 12-16-2024 Chloride [Moles/Vol] Chloride [Moles/volume] in Serum or Plasma 98-107 [facility] Chromatin Antibodyon 025 Chromatin Antibody <0.2 Normal 0.0-0.9 [facility] Comment on above: Result Comment: Perf ormed at: CB - [facility] [address] [id number] [employer]: Erick Neville PhD, Phone: [phone] PERFORMED BY: [place] [address] PATHOLOGIST CREATIVE PROJECT MANAGER PAZ GUILLERMO M.D. Performed By: #### C BC #### [address] Coagulation Profileon 2024 aPTT Coag (Bld) [Time] 28.7 s Normal 25.1-36.5 [facility] Comment on above: Result Comment: A he matocrit value greater than 55% may lead to inaccurate results in coagulation testing. Patients having hematocrit values >55% require a special collection tube for coagulation studies. Please contact the laboratory at [phone] for redraw instructions. PERFORMED BY: [place] [address] PATHOLOGIST CREATIVE PROJECT MANAGER PAZ GUILLERMO M.D. Performed By: #### P P #### [address] #### LUPANTCOAG #### [facility] , INR Coag (PPP) [Relative time] 0.9 {INR} Normal [facility] Comment on above: Result Comment: [...] 4.5 Performed By: #### P P #### [facility] [address] [place] [address] [place] #### LUPANTCOAG #### [facility] , PT Coag (PPP) [Time] 10.5 s Normal 9.0-12.9 [facility] Comment on above: Result Comment: A he matocrit value greater than 55% may lead to inaccurate results in coagulation testing. Patients having hematocrit values >55% require a special collection tube for coagulation studies. Please contact the laboratory at [phone] for redraw instructions. Performed By: #### P P #### [facility] [address] [place] [address] [place] #### LUPANTCOAG #### [facility] , Color Auto (U)Ordered By: Dori Valdez on 12-16-2024 Color (U) Color of Urine by Auto Yellow [facility] Complement C3on 12-16-2024 Complement C3 133 mg/dL Normal 82-167 [facility] Comment on above: Result Comment: Perf ormed at: [facility] [address] [id number] [employer]: Erick Neville PhD, Phone: [phone] Performed By: #### C BC #### [address] Complement C4on 12-16-2024 Complement C4 26 mg/dL Normal 12-38 [facility] Comment on above: Performed By: #### C BC #### [address] Complement Total (CH50)on Complement Total (CH50) >60 Normal >41 [facility] Comment on above: Result Comment: [...] determine out of range values. Performed at: [facility] [address] [id number] [employer]: Erick Neville PhD, Phone: [phone] PERFORMED BY: [place] [address] PATHOLOGIST CREATIVE PROJECT MANAGER PAZ GUILLERMO M.D. Performed By: #### P P #### [address] #### LUPANTCOAG #### [facility] , Complete Blood Count Auto Di ffon 12-16-2024 Basophils (Bld) [#/Vol] 0.0 10*3/uL Normal 0.0-0.2 [facility] Comment on above: Performed By: #### P P #### [facility] [address] [place] [address] [place] #### LUPANTCOAG #### [facility] , Basophils/100 WBC (Bld) 0.7 % Normal . [facility] Comment on above: Performed By: #### P P #### [place] [address] [place] #### LUPANTCOAG #### [facility] , Eosinophils (Bld) [#/Vol] 0.1 10*3/uL Normal 0.0-0.45 [facility] Comment on above: Performed By: #### P P #### [place] [address] [place] #### LUPANTCOAG #### [facility] , Eosinophils/100 WBC (Bld) 2.3 % Normal . [facility] Comment on above: Performed By: #### P P #### [place] [address] [place] #### LUPANTCOAG #### [facility] , Erythrocyte distribution width (RBC) [Ratio] 12.8 % Normal 11.9-15.3 [facility] Comment on above: Performed By: #### P P #### [place] [address] [place] #### LUPANTCOAG #### [facility] , Hematocrit (Bld) [Volume fraction] 39.6 % Normal 34.0-46.4 [facility] Comment on above: Performed By: #### P P #### [place] [address] [place] #### LUPANTCOAG #### [facility] , Hemoglobin (Bld) [Mass/Vol] 13.3 g/dL Normal 11.8-15.4 [facility] Comment on above: Performed By: #### P P #### [place] [address] [place] #### LUPANTCOAG #### [facility] , Lymphocytes (Bld) [#/Vol] 1.8 10*3/uL Normal 1.00-4.8 [facility] Comment on above: Performed By: #### P P #### [address] #### LUPANTCOAG #### [facility] , Lymphocytes/100 WBC (Bld) 32.0 % Normal . [facility] Comment on above: Performed By: #### P P #### [place] [address] [place] #### LUPANTCOAG #### [facility] , MCH (RBC) [Entitic mass] 28.4 pg Normal 24.7-34.3 [facility] Comment on above: Performed By: #### P P #### [place] [address] [place] #### LUPANTCOAG #### [facility] , MCV (RBC) [Entitic vol] 84.6 fL Normal 80-100 [facility] Comment on above: Performed By: #### P P #### [address] #### LUPANTCOAG #### [facility] , Mean Corpuscular HGB Conc 33.6 g/dL Normal 32.0-35.0 [facility] Comment on above: Performed By: #### P P #### [place] [address] [place] #### LUPANTCOAG #### [facility] , Monocytes (Bld) [#/Vol] 0.3 10*3/uL Normal 0.0-0.8 [facility] Comment on above: Performed By: #### P P #### [place] [address] [place] #### LUPANTCOAG #### [facility] , Monocytes/100 WBC (Bld) 5.1 % Normal . [facility] Comment on above: Performed By: #### P P #### [facility] [address] [place] [address] [place] #### LUPANTCOAG #### [facility] , Neutrophils (Bld) [#/Vol] 3.3 10*3/uL Normal 1.8-7.7 [facility] Comment on above: Performed By: #### P P #### [place] [address] [place] #### LUPANTCOAG #### [facility] , Neutrophils/100 WBC (Bld) 59.9 % Normal . [facility] Comment on above: Performed By: #### P P #### [address] #### LUPANTCOAG #### [facility] , NRBC% 0.1 /100{WBC} Normal 0-0.5 [facility] Comment on above: Performed By: #### P P #### [place] [address] [place] #### LUPANTCOAG #### [facility] , Platelet mean volume (Bld) [Entitic vol] 7.5 fL Normal 6.3-10.7 [facility] Comment on above: Performed By: #### P P #### [facility] [address] [place] [address] [place] #### LUPANTCOAG #### [facility] , Platelets (Bld) [#/Vol] 347 10*3/uL Normal 150-450 [facility] Comment on above: Performed By: #### P P #### [place] [address] [place] #### LUPANTCOAG #### [facility] , RBC (Bld) [#/Vol] 4.68 10*6/uL Normal 3.60-5.00 [facility] Comment on above: Performed By: #### P P #### [place] [address] [place] #### LUPANTCOAG #### [facility] , WBC (Bld) [#/Vol] 5.6 10*3/uL Normal 3.8-11.6 [facility] Comment on above: Performed By: #### P P #### [place] [address] [place] #### LUPANTCOAG #### [facility] , Comprehensive Metabolic Pane boyd 12-16-2024 Albumin [Mass/Vol] 4.1 g/dL Normal 3.5-5.7 [facility] Comment on above: Performed By: #### E SR, TSH3, CK, ADDONUAPLUS, CBC, CRP, CMP, T4F #### [address] #### RPR W RFX, ALDOLASE, GUZMAN,URINE, UPE RAND #### [facility] , Albumin/Globulin [Mass ratio] 1.9 {ratio} Normal [facility] Comment on above: Performed By: #### E SR, TSH3, CK, ADDONUAPLUS, CBC, CRP, CMP, T4F #### [place] [address] [place] #### RPR W RFX, ALDOLASE, GUZMAN,URINE, UPE RAND #### [facility] , ALP [Catalytic activity/Vol] 84 U/L Normal 34-104 [facility] Comment on above: Performed By: #### E SR, TSH3, CK, ADDONUAPLUS, CBC, CRP, CMP, T4F #### [address] #### RPR W RFX, ALDOLASE, GUZMAN,URINE, UPE RAND #### [facility] , ALT [Catalytic activity/Vol] 31 U/L Normal 7-52 [facility] Comment on above: Performed By: #### E SR, TSH3, CK, ADDONUAPLUS, CBC, CRP, CMP, T4F #### [address] #### RPR W RFX, ALDOLASE, GUZMAN,URINE, UPE RAND #### [facility] , Anion gap [Moles/Vol] 8.2 mmol/L Normal 6.0-15.0 [facility] Comment on above: Performed By: #### E SR, TSH3, CK, ADDONUAPLUS, CBC, CRP, CMP, T4F #### [address] #### RPR W RFX, ALDOLASE, GUZMAN,URINE, UPE RAND #### [facility] , AST [Catalytic activity/Vol] 31 U/L Normal 13-39 [facility] Comment on above: Performed By: #### E SR, TSH3, CK, ADDONUAPLUS, CBC, CRP, CMP, T4F #### [address] #### RPR W RFX, ALDOLASE, GUZMAN,URINE, UPE RAND #### [facility] , Bilirubin [Mass/Vol] 0.3 mg/dL Normal 0.3-1.0 [facility] Comment on above: Performed By: #### E SR, TSH3, CK, ADDONUAPLUS, CBC, CRP, CMP, T4F #### [address] #### RPR W RFX, ALDOLASE, GUZMAN,URINE, UPE RAND #### [facility] , Calcium [Mass/Vol] 9.3 mg/dL Normal 8.6-10.3 [facility] Comment on above: Performed By: #### E SR, TSH3, CK, ADDONUAPLUS, CBC, CRP, CMP, T4F #### [address] #### RPR W RFX, ALDOLASE, GUZMAN,URINE, UPE RAND #### [facility] , Chloride [Moles/Vol] 107 mmol/L Normal 98-107 [facility] Comment on above: Performed By: #### E SR, TSH3, CK, ADDONUAPLUS, CBC, CRP, CMP, T4F #### [address] #### RPR W RFX, ALDOLASE, GUZMAN,URINE, UPE RAND #### [facility] , CO2 [Moles/Vol] 30.0 mmol/L Normal 21.0-31.0 [facility] Comment on above: Performed By: #### E SR, TSH3, CK, ADDONUAPLUS, CBC, CRP, CMP, T4F #### [address] #### RPR W RFX, ALDOLASE, GUZMAN,URINE, UPE RAND #### [facility] , Creatinine [Mass/Vol] 0.70 mg/dL Normal 0.60-1.20 [facility] Comment on above: Performed By: #### E SR, TSH3, CK, ADDONUAPLUS, CBC, CRP, CMP, T4F #### [address] #### RPR W RFX, ALDOLASE, GUZMAN,URINE, UPE RAND #### [facility] , GFR/1.73 sq M.predicted MDRD (S/P/Bld) [Vol rate/Area] mL/min/{1.73_m2} Normal [facility] Comment on above: Performed By: #### E SR, TSH3, CK, ADDONUAPLUS, CBC, CRP, CMP, T4F #### [place] [address] [place] #### RPR W RFX, ALDOLASE, GUZMAN,URINE, UPE RAND #### [facility] , Globulin (S) [Mass/Vol] 2.2 g/dL Normal [facility] Comment on above: Performed By: #### E SR, TSH3, CK, ADDONUAPLUS, CBC, CRP, CMP, T4F #### [address] #### RPR W RFX, ALDOLASE, GUZMAN,URINE, UPE RAND #### [facility] , Glucose [Mass/Vol] 85 mg/dL Normal 70-100 [facility] Comment on above: Result Comment: [place] Glucose Reference Range is dependent on time and content of last meal. Glucose of more than 200 mg/dL in a nonstressed, ambulatory subject supports the diagnosis of Diabetes Mellitus. ADA recommended reference range Performed By: #### E SR, TSH3, CK, ADDONUAPLUS, CBC, CRP, CMP, T4F #### [place] [address] [place] #### RPR W RFX, ALDOLASE, GUZMAN,URINE, UPE RAND #### [facility] , Potassium [Moles/Vol] 4.2 mmol/L Normal 3.5-5.1 [facility] Comment on above: Performed By: #### E SR, TSH3, CK, ADDONUAPLUS, CBC, CRP, CMP, T4F #### [place] [address] [place] #### RPR W RFX, ALDOLASE, GUZMAN,URINE, UPE RAND #### [facility] , Protein [Mass/Vol] 6.3 g/dL Low 6.4-8.9 [facility] Comment on above: Performed By: #### E SR, TSH3, CK, ADDONUAPLUS, CBC, CRP, CMP, T4F #### [address] #### RPR W RFX, ALDOLASE, GUZMAN,URINE, UPE RAND #### [facility] , Sodium [Moles/Vol] 141 mmol/L Normal 136-145 [facility] Comment on above: Performed By: #### E SR, TSH3, CK, ADDONUAPLUS, CBC, CRP, CMP, T4F #### [address] #### RPR W RFX, ALDOLASE, GUZMAN,URINE, UPE RAND #### [facility] , Urea nitrogen [Mass/Vol] 11 mg/dL Normal 7-25 [facility] Comment on above: Performed By: #### E SR, TSH3, CK, ADDONUAPLUS, CBC, CRP, CMP, T4F #### [address] #### RPR W RFX, ALDOLASE, GUZMAN,URINE, UPE RAND #### [facility] , Creatine Kinaseon 12-16-2024 CK [Catalytic activity/Vol] 487 U/L High 30-223 [facility] Comment on above: Result Comment: PERF ORMED BY: [place] [address] PATHOLOGIST CREATIVE PROJECT MANAGER PAZ GUILLERMO M.D. Performed By: #### E SR, TSH3, CK, ADDONUAPLUS, CBC, CRP, CMP, T4F #### [address] #### RPR W RFX, ALDOLASE, GUZMAN,URINE, UPE RAND #### [facility] , Creatine kinase [Enzymatic a ctivity/volume] in Serum or PlasmaOrdered By: Everett Valdez on 12-16-2024 CK [Catalytic activity/Vol] Creatine kinase [Enzymatic activity/volume] in Serum or Plasma High 30-223 [facility] Creatinine [Mass/volume] in Serum or PlasmaOrdered By: Everett Valdez on 12-16-2024 Creatinine [Mass/Vol] Creatinine [Mass/volume] in Serum or Plasma 0.60-1.20 [facility] Dipstick and Microscopicon 0 12-16-2024 Appearance (U) Clear Normal Clear [facility] Comment on above: Order Comment: Name Collection Type:: Clean-Voided Midstream Performed By: #### E SR, TSH3, CK, ADDONUAPLUS, CBC, CRP, CMP, T4F #### [address] #### RPR W RFX, ALDOLASE, GUZMAN,URINE, UPE RAND #### [facility] , Bacteria,Urine Rare Normal None Seen [facility] Comment on above: Order Comment: Name Collection Type:: Clean-Voided Midstream Performed By: #### E SR, TSH3, CK, ADDONUAPLUS, CBC, CRP, CMP, T4F #### [address] #### RPR W RFX, ALDOLASE, GUZMAN,URINE, UPE RAND #### [facility] , Bilirubin,Urine Negative Normal Negative [facility] Comment on above: Order Comment: Name Collection Type:: Clean-Voided Midstream Performed By: #### E SR, TSH3, CK, ADDONUAPLUS, CBC, CRP, CMP, T4F #### [address] #### RPR W RFX, ALDOLASE, GUZMAN,URINE, UPE RAND #### [facility] , Color (U) Yellow Normal Yellow [facility] Comment on above: Order Comment: Name Collection Type:: Clean-Voided Midstream Performed By: #### E SR, TSH3, CK, ADDONUAPLUS, CBC, CRP, CMP, T4F #### [address] #### RPR W RFX, ALDOLASE, GUZMAN,URINE, UPE RAND #### [facility] , Glucose Ql (U) Normal Normal Normal [facility] Comment on above: Order Comment: Name Collection Type:: Clean-Voided Midstream Performed By: #### E SR, TSH3, CK, ADDONUAPLUS, CBC, CRP, CMP, T4F #### [address] #### RPR W RFX, ALDOLASE, GUZMAN,URINE, UPE RAND #### [facility] , Hyaline Casts,Urine 0-8 Normal 0-8 [facility] Comment on above: Order Comment: Name Collection Type:: Clean-Voided Midstream Performed By: #### E SR, TSH3, CK, ADDONUAPLUS, CBC, CRP, CMP, T4F #### [address] #### RPR W RFX, ALDOLASE, GUZMAN,URINE, UPE RAND #### [facility] , Ketones Ql (U) Negative Normal Negative [facility] Comment on above: Order Comment: Name Collection Type:: Clean-Voided Midstream Performed By: #### E SR, TSH3, CK, ADDONUAPLUS, CBC, CRP, CMP, T4F #### [address] #### RPR W RFX, ALDOLASE, GUZMAN,URINE, UPE RAND #### [facility] , Leukocyte esterase Test strip Ql (U) Negative Normal Negative [facility] Comment on above: Order Comment: Name Collection Type:: Clean-Voided Midstream Performed By: #### E SR, TSH3, CK, ADDONUAPLUS, CBC, CRP, CMP, T4F #### [address] #### RPR W RFX, ALDOLASE, GUZMAN,URINE, UPE RAND #### [facility] , Mucus,Urine 1+ Critically abnormal [facility] Comment on above: Order Comment: Name Collection Type:: Clean-Voided Midstream Result Comment: PERF ORMED BY: [place] [address] PATHOLOGIST CREATIVE PROJECT MANAGER PAZ GUILLERMO M.D. Performed By: #### E SR, TSH3, CK, ADDONUAPLUS, CBC, CRP, CMP, T4F #### [address] #### RPR W RFX, ALDOLASE, GUZMAN,URINE, UPE RAND #### [facility] , Nitrite,Urine Negative Normal Negative [facility] Comment on above: Order Comment: Name Collection Type:: Clean-Voided Midstream Performed By: #### E SR, TSH3, CK, ADDONUAPLUS, CBC, CRP, CMP, T4F #### [address] #### RPR W RFX, ALDOLASE, GUZMAN,URINE, UPE RAND #### [facility] , Occult Blood,Urine Negative Normal Negative [facility] Comment on above: Order Comment: Name Collection Type:: Clean-Voided Midstream Performed By: #### E SR, TSH3, CK, ADDONUAPLUS, CBC, CRP, CMP, T4F #### [address] #### RPR W RFX, ALDOLASE, GUZMAN,URINE, UPE RAND #### [facility] , pH (U) 5.0 [pH] Normal 5.0-9.0 [facility] Comment on above: Order Comment: Name Collection Type:: Clean-Voided Midstream Performed By: #### E SR, TSH3, CK, ADDONUAPLUS, CBC, CRP, CMP, T4F #### [place] [address] [place] #### RPR W RFX, ALDOLASE, GUZMAN,URINE, UPE RAND #### [facility] , Protein,Urine Negative Normal Negative [facility] Comment on above: Order Comment: Name Collection Type:: Clean-Voided Midstream Performed By: #### E SR, TSH3, CK, ADDONUAPLUS, CBC, CRP, CMP, T4F #### [address] #### RPR W RFX, ALDOLASE, GUZMAN,URINE, UPE RAND #### [facility] , RBC,Urine 1-2 Normal 0-4 [facility] Comment on above: Order Comment: Name Collection Type:: Clean-Voided Midstream Performed By: #### E SR, TSH3, CK, ADDONUAPLUS, CBC, CRP, CMP, T4F #### [address] #### RPR W RFX, ALDOLASE, GUZMAN,URINE, UPE RAND #### [facility] , Specificy [place],Urine 1.024 Normal 1.001-1.030 [facility] Comment on above: Order Comment: Name Collection Type:: Clean-Voided Midstream Performed By: #### E SR, TSH3, CK, ADDONUAPLUS, CBC, CRP, CMP, T4F #### [address] #### RPR W RFX, ALDOLASE, GUZMAN,URINE, UPE RAND #### [facility] , Squamous Epithelial Cell,Urine 5-9 High 0-2 [facility] Comment on above: Order Comment: Name Collection Type:: Clean-Voided Midstream Performed By: #### E SR, TSH3, CK, ADDONUAPLUS, CBC, CRP, CMP, T4F #### [address] #### RPR W RFX, ALDOLASE, GUZMAN,URINE, UPE RAND #### [facility] , Urobilinogen,Urine Normal Normal Normal [facility] Comment on above: Order Comment: Name Collection Type:: Clean-Voided Midstream Performed By: #### E SR, TSH3, CK, ADDONUAPLUS, CBC, CRP, CMP, T4F #### [address] #### RPR W RFX, ALDOLASE, GUZMAN,URINE, UPE RAND #### [facility] , WBC,Urine 1-2 Normal 0-4 [facility] Comment on above: Order Comment: Name Collection Type:: Clean-Voided Midstream Performed By: #### E SR, TSH3, CK, ADDONUAPLUS, CBC, CRP, CMP, T4F #### [address] #### RPR W RFX, ALDOLASE, GUZMAN,URINE, UPE RAND #### [facility] , Eosinophils Auto (Bld) [#/Vo l]Ordered By: Everett Valdez on 12-16-2024 Eosinophils (Bld) [#/Vol] Automated eosinophil count 0.0-0.45 [facility] Eosinophils/100 WBC Auto (Bl d)Ordered By: Everett Valdez on 12-16-2024 Eosinophils/100 WBC (Bld) Automated eosinophil % . [facility] Epithelial cells.squamous [# /area] in Urine sediment by Automated countOrdered By: Everett Valdez on 12-16-2024 Epithelial cells.squamous Auto (Urine sed) [#/Area] Epithelial cells.squamous [#/area] in Urine sediment by Automated count High 0-2 [facility] Erythrocyte Sedimentation Ra lian 12-16-2024 ESR (Bld) [Velocity] 6 mm/h Normal 0-29 [facility] Comment on above: Result Comment: PERF ORMED BY: [place] [address] PATHOLOGIST CREATIVE PROJECT MANAGER PAZ GUILLERMO M.D. Performed By: #### P P #### [place] [address] [place] #### LUPANTCOAG #### [facility] , Erythrocyte distribution wid th Auto (RBC) [Ratio]Ordered By: Everett Valdez on 12-16-2024 Erythrocyte distribution width (RBC) [Ratio] Erythrocyte distribution width [Ratio] by Automated count 11.9-15.3 [facility] Erythrocyte sedimentation ra te by Photometric methodOrdered By: Everett Valdez on 12-16-2024 ESR Photometric method (Bld) [Velocity] Erythrocyte sedimentation rate by Photometric method 0-29 [facility] Erythrocytes [#/area] in Uri ne sediment by Automated countOrdered By: Everett Valdez on 12-16-2024 RBC Auto (Urine sed) [#/Area] Erythrocytes [#/area] in Urine sediment by Automated count 0-4 [facility] Free T4 (Free Thyroxine)on 0 12-16-2024 Free T4 [Mass/Vol] 0.77 ng/dL Normal 0.61-1.12 [facility] Comment on above: Performed By: #### E SR, TSH3, CK, ADDONUAPLUS, CBC, CRP, CMP, T4F #### [facility] [address] #### RPR W RFX, ALDOLASE, GUZMAN,URINE, UPE RAND #### [facility] , Globulin Calc (S) [Mass/Vol] Ordered By: Everett Valdez on 12-16-2024 Globulin (S) [Mass/Vol] Serum globulin measurement by calculation (mass/volume) [facility] Glucose [Mass/volume] in Ser um or PlasmaOrdered By: Everett Valdez on 12-16-2024 Glucose [Mass/Vol] Glucose [Mass/volume ] in Serum or Plasma 70-100 [facility] Comment on above: ADA recommended refe [...] [Mass/volume] in Urine by Test strip Normal [facility] Hematocrit Auto (Bld) [Volum e fraction]Ordered By: Everett Valdez on 12-16-2024 Hematocrit (Bld) [Volume fraction] Hematocrit [Volume Fraction] of Blood by Automated count 34.0-46.4 [facility] Hemoglobin Test strip Ql (U) Ordered By: Everett Valdez on 12-16-2024 Hemoglobin Ql (U) Hemoglobin [Presence ] in Urine by Test strip Negative [facility] Hemoglobin [Mass/volume] in BloodOrdered By: Everett Valdez on 12-16-2024 Hemoglobin (Bld) [Mass/Vol] Hemoglobin [Mass/volume] in Blood 11.8-15.4 [facility] Hyaline casts [#/area] in Ur ine sediment by Automated countOrdered By: Everett Valdez on 12-16-2024 Hyaline casts Auto (Urine sed) [#/Area] Hyaline casts [#/area] in Urine sediment by Automated count 0-8 [facility] INR in Platelet poor plasma by Coagulation assayOrdered By: Everett Valdez on 12-16-2024 INR Coag (PPP) [Relative time] INR in Platelet poor plasma by Coagulation assay [facility] Comment on above: INR Therapeutic Rang [...] Immunofixation (U) [Interp] Immunofixation for Urine . [facility] Comment on above: No monoclonality det ected.Performed at: [facility] [address] [id number] Director: Erick Neville PhD, Phone: [phone] Immunofixation, (GUZMAN), Urine on 12-16-2024 Immunofixation, (GUZMAN), Urine Comment Normal . [facility] Comment on above: Result Comment: No m onoclonality detected. Performed at: [facility] [address] [id number] [employer]: Erick Neville PhD, Phone: [phone] Performed By: #### P P #### [place] [address] [place] #### LUPANTCOAG #### [facility] , Immunofixation,Serumon 12-16 Immunofixation, Serum Comment Normal . [facility] Comment on above: Result Comment: No m onoclonality detected. Performed By: #### P P #### [place] [address] [place] #### LUPANTCOAG #### [facility] , Immunoglobulin A, Serum 216 mg/dL Normal 87-352 [facility] Comment on above: Performed By: #### P P #### [place] [address] [place] #### LUPANTCOAG #### [facility] , Immunoglobulin G 802 mg/dL Normal 586-1602 [facility] Comment on above: Performed By: #### P P #### [place] [address] [place] #### LUPANTCOAG #### [facility] , Immunoglobulin M, Serum 78 mg/dL Normal 26-217 [facility] Comment on above: Result Comment: Perf ormed at: - [facility] [address] [id number] [employer]: Erick Neville PhD, Phone: [phone] Performed By: #### P P #### [facility] [address] [place] [address] [place] #### LUPANTCOAG #### [facility] , Ketones Test strip Ql (U)Ord ered By: Everett Valdez on 12-16-2024 Ketones Ql (U) Ketones [Presence] i n Urine by Test strip Negative [facility] Leukocyte esterase [Presence ] in Urine by Test stripOrdered By: Everett Valdez on 12-16-2024 Leukocyte esterase Test strip Ql (U) Leukocyte esterase [Presence] in Urine by Test strip Negative [facility] Leukocytes [#/area] in Urine sediment by Automated countOrdered By: Everett Valdez on 12-16-2024 WBC Auto (Urine sed) [#/Area] Leukocytes [#/area] in Urine sediment by Automated count 0-4 [facility] Leukocytes [#/volume] correc herbert for nucleated erythrocytes in Blood by Automated counOrdered By: Everett Valdez on 12-16-2024 WBC corrected for nucl RBC Auto (Bld) [#/Vol] Leukocytes [#/volume] corrected for nucleated erythrocytes in Blood by Automated coun 3.8-11.6 [facility] Lupus Anticoagulant Compon 0 12-16-2024 Dilute Prothrombin Time (dPt) 30.8 Normal 0.0-47.6 [facility] Comment on above: Performed By: #### P P #### [address] #### LUPANTCOAG #### [facility] , dPT Confirm Ratio 1.06 Normal 0.00-1.34 [facility] Comment on above: Performed By: #### P P #### [place] [address] [place] #### LUPANTCOAG #### [facility] , DRVVT Lupus 37.0 Normal 0.0-47.0 [facility] Comment on above: Performed By: #### P P #### [facility] [address] [place] [address] [place] #### LUPANTCOAG #### [facility] , Interpretation Comment: Normal . [facility] Comment on above: Result Comment: No l upus anticoagulant was detected. Performed at: [address] [id number] [employer]: Jim Gong MD, Phone: [phone] PERFORMED BY: [place] [address] PATHOLOGIST CREATIVE PROJECT MANAGER PAZ GUILLERMO M.D. Performed By: #### P P #### [facility] [address] [place] [address] [place] #### LUPANTCOAG #### [facility] , PTT-LA 26.8 Normal 0.0-43.5 [facility] Comment on above: Performed By: #### P P #### [facility] [address] [place] [address] [place] #### LUPANTCOAG #### [facility] , Thrombin Time 19.0 Normal 0.0-23.0 [facility] Comment on above: Performed By: #### P P #### [facility] [address] [place] [address] [place] #### LUPANTCOAG #### [facility] , Lupus anticoagulant [Interpr etation] in Platelet poor plasmaOrdered By: Everett Valdez on 12-16-2024 Lupus anticoagulant (PPP) [Interp] Lupus anticoagulant [Interpretation] in Platelet poor plasma . [facility] Comment on above: No lupus anticoagula nt was detected.Performed at: [address] [id number] Director: Jim Gong MD, Phone: [phone] Lymphocytes Auto (Bld) [#/Vo l]Ordered By: Everett Valdez on 12-16-2024 Lymphocytes (Bld) [#/Vol] Lymphocytes [#/volume] in Blood by Automated count 1.00-4.8 [facility] Lymphocytes/100 WBC Auto (Bl d)Ordered By: Everett Valdez on 12-16-2024 Lymphocytes/100 WBC (Bld) Lymphocytes/100 leukocytes in Blood by Automated count . [facility] MCH Auto (RBC) [Entitic mass ]Ordered By: Everett Valdez on 12-16-2024 MCH (RBC) [Entitic mass] MCH [Entitic mass] by Automated count 24.7-34.3 [facility] MCHC Auto (RBC) [Mass/Vol]Or dered By: Everett Valdez on 12-16-2024 MCHC (RBC) [Mass/Vol] MCHC [Mass/volume] by Automated count 32.0-35.0 [facility] MCV Auto (RBC) [Entitic vol] Ordered By: Everett Valdez on 12-16-2024 MCV (RBC) [Entitic vol] MCV [Entitic volume] by Automated count 80-100 [facility] Monocytes Auto (Bld) [#/Vol] Ordered By: Everett Valdez on 12-16-2024 Monocytes (Bld) [#/Vol] Automated blood monocyte count 0.0-0.8 [facility] Monocytes/100 WBC Auto (Bld) Ordered By: Everett Valdez on 12-16-2024 Monocytes/100 WBC (Bld) Automated monocyte % . [facility] Mucus [Presence] in Urine by AutomatedOrdered By: Everett Valdez on 12-16-2024 Mucus Auto Ql (U) Mucus [Presence] in Urine by Automated Abnormal [facility] Neutrophils Auto (Bld) [#/Vo l]Ordered By: Everett Valdez on 12-16-2024 Neutrophils (Bld) [#/Vol] Neutrophils [#/volume] in Blood by Automated count 1.8-7.7 [facility] Neutrophils/100 WBC Auto (Bl d)Ordered By: Everett Valdez on 12-16-2024 Neutrophils/100 WBC (Bld) Automated neutrophil % . [facility] Nitrite Test strip Ql (U)Ord ered By: Everett Valdez on 12-16-2024 Nitrite Ql (U) Nitrite [Presence] i n Urine by Test strip Negative [facility] No Panel InformationOrdered By: Everett Valdez on 12-16-2024 Estimated GFR (CKD-EPI) > 60.0 mL/Min [facility] Creatinine Clearance (Chem N/A [facility] Protein Electrophoresis M-Juan Miguel Not observed g/dL Not Observed [facility] Protein Electrophoresis Note Comment . [facility] Comment on above: Protein electrophore sis scan will follow via computer,mail, or dye tub tender delivery.Performed at: [address] [id number] Director: Erick Neville PhD, Phone: [phone] Urine Random Prot Electrophor Note Comment . [facility] Comment on above: Protein electrophore sis scan will follow via computer,mail, or dye tub tender delivery. Nucleated erythrocytes [Pres ence] in Blood by Automated countOrdered By: Everett Valdez on 12-16-2024 Nucleated RBC Auto Ql (Bld) Nucleated erythrocytes [Presence] in Blood by Automated count 0-0.5 [facility] Plasma thrombin timeOrdered By: Everett Valdez on 12-16-2024 Thrombin time Coag (PPP) [Time] TT plas 0.0-23.0 [facility] Platelet mean volume Auto (B ld) [Entitic vol]Ordered By: Everett Valdez on 12-16-2024 Platelet mean volume (Bld) [Entitic vol] Platelet mean volume [Entitic volume] in Blood by Automated count 6.3-10.7 [facility] Platelet poor plasma ratio o f lupus anticoagulant-sensitive activated partial thromboOrdered By: Everett Valdez on 12-16-2024 aPTT.lupus sensitive.excess phospholipid actual/normal Coag (PPP) [Relative time] Platelet poor plasma ratio of lupus anticoagulant-sensitiv e activated partial thrombo 0.0-47.6 [facility] Platelets Auto (Bld) [#/Vol] Ordered By: Everett Valdez on 12-16-2024 Platelets (Bld) [#/Vol] Platelets [#/volume] in Blood by Automated count 150-450 [facility] Potassium [Moles/volume] in Serum or PlasmaOrdered By: Everett Valdez on 12-16-2024 Potassium [Moles/Vol] Potassium [Moles/volume] in Serum or Plasma 3.5-5.1 [facility] Protein Electro, Random Urin destinee 12-16-2024 Albumin, Urine 34.3 % Normal . [facility] Comment on above: Performed By: #### P P #### [facility] [address] [place] [address] #### LUPANTCOAG #### [facility] , Tyyhs-6-Yiyinroy, Urine 2.2 % Normal . [facility] Comment on above: Performed By: #### P P #### [address] #### LUPANTCOAG #### [facility] , Nkxjl-0-Wseexnpj, Urine 18.4 % Normal . [facility] Comment on above: Performed By: #### P P #### [place] [address] [place] #### LUPANTCOAG #### [facility] , Beta Globulin, Urine 30.5 % Normal . [facility] Comment on above: Performed By: #### P P #### [address] #### LUPANTCOAG #### [facility] , Gamma Globulin, Urine 14.7 % Normal . [facility] Comment on above: Performed By: #### P P #### [address] #### LUPANTCOAG #### [facility] , M-Juan Miguel % Not Observed Normal Not Observed [facility] Comment on above: Performed By: #### P P #### [address] #### LUPANTCOAG #### [facility] , Please Note: Comment Normal . [facility] Comment on above: Result Comment: Prot ein electrophoresis scan will follow via computer, mail, or dye tub tender delivery. PERFORMED BY: [place] [address] PATHOLOGIST CREATIVE PROJECT MANAGER PAZ GUILLERMO M.D. Performed By: #### P P #### [place] [address] [place] #### LUPANTCOAG #### [facility] , Protein (U) [Mass/Vol] 9.0 mg/dL Normal Not Estab. [facility] Comment on above: Performed By: #### P P #### [address] #### LUPANTCOAG #### [facility] , Protein Electrophoresis, Ser umon 12-16-2024 Albumin [Mass/Vol] 3.8 g/dL Normal 2.9-4.4 [facility] Comment on above: Performed By: #### C BC #### [address] Albumin/Globulin [Mass ratio] 1.4 {ratio} Normal 0.7-1.7 [facility] Comment on above: Performed By: #### C BC #### [address] Uowpk-6-Xdrnesyi 0.2 g/dL Normal 0.0-0.4 [facility] Comment on above: Performed By: #### C BC #### [address] Mvzcr-1-Kvmsevtx 0.6 g/dL Normal 0.4-1.0 The [facility] Comment on above: Performed By: #### C BC #### [address] Beta Globulin 1.1 g/dL Normal 0.7-1.3 The [facility] Comment on above: Performed By: #### C BC #### [address] Gamma Globulin 0.8 g/dL Normal 0.4-1.8 [facility] Comment on above: Performed By: #### C BC #### [place] [address] [place] Globulin (S) [Mass/Vol] 2.7 g/dL Normal 2.2-3.9 [facility] Comment on above: Performed By: #### C BC #### [address] M-Juan Miguel Not Observed Normal Not Observed [facility] Comment on above: Performed By: #### C BC #### [place] [id number] [place] Protein [Mass/Vol] 6.5 g/dL Normal 6.0-8.5 The [facility] Comment on above: Performed By: #### C BC #### [address] SPE-Note Comment Normal . [facility] Comment on above: Result Comment: Prot ein electrophoresis scan will follow via computer, mail, or dye tub tender delivery. Performed at: [facility] [address] [id number] [employer]: Erick Neville PhD, Phone: [phone] Performed By: #### C BC #### [address] Protein Test strip (U) [Mass /Vol]Ordered By: Everett Valdez on 12-16-2024 Protein (U) [Mass/Vol] Protein [Mass/volume] in Urine by Test strip Negative [facility] Protein [Mass/volume] in Ser um or PlasmaOrdered By: Everett Valdez on 12-16-2024 Protein [Mass/Vol] Protein [Mass/volume ] in Serum or Plasma 6.0-8.5 [facility] Prothrombin time (PT)Ordered By: Everett Valdez on 12-16-2024 PT Coag (PPP) [Time] Prothrombin time (PT) 9.0- 12.9 [facility] Comment on above: A hematocrit value g reater than 55% may lead to inaccurate results in coagulation testing. Patients having hematocrit values >55% require a special collection tube for coagulation studies. Please contact the laboratory at [phone] for redraw instructions. RBC Auto (Bld) [#/Vol]Ordere d By: Everett Valdez on 12-16-2024 RBC (Bld) [#/Vol] Erythrocytes [#/volume] in Blood by Automated count 3.60-5.00 [facility] RPR w/rfx to Quant TP Abson 12-16-2024 RPR, Rfx Quant RPR Non-Reactive Normal Non Reactive Th e [facility] Comment on above: Result Comment: Perf ormed at: [facility] [address] [id number] [employer]: Erick Neville PhD, Phone: [phone] PERFORMED BY: [place] [address] PATHOLOGIST CREATIVE PROJECT MANAGER PAZ GUILLERMO M.D. Performed By: #### P P #### [place] [address] [place] #### LUPANTCOAG #### [facility] , Screening dilute Jamie's v iper venom time (DRVVT) with reflex to confirmatory testOrdered By: Everett Valdez on 12-16-2024 dRVVT Coag (PPP) [Time] Screening dilute Jamie's viper venom time (DRVVT) with reflex to confirmatory test 0.0-47.0 [facility] Screening lupus anticoagulan t-sensitive activated partial thromboplastin time (aPTT)Ordered By: Everett Valdez on 12-16-2024 aPTT.lupus sensitive Coag (PPP) [Time] Screening lupus anticoagulant-sensitiv e activated partial thromboplastin time (aPTT) 0.0-43.5 [facility] Serum RPR testOrdered By: Dori Valdez on 12-16-2024 Reagin Ab RPR Ql (S) Reagin Ab [Presence ] in Serum by RPR Non Reactive [facility] Comment on above: Performed at: [facility] [address] [id number] Director: Erick Neville PhD, Phone: [phone] Serum aldolase measurementOr dered By: Everett Valdez on 12-16-2024 Aldolase 13.5 U/L High 3.3-10.3 [facility] Comment on above: Performed at: [facility] [address] [id number] Director: Erick Neville PhD, Phone: [phone] Result Comment: Perf ormed at: [facility] [id number] [employer]: Erick Neville PhD, Phone: [phone] PERFORMED BY: [place] [address] PATHOLOGIST CREATIVE PROJECT MANAGER PAZ GUILLERMO M.D. Performed By: #### P P #### [address] #### LUPANTCOAG #### [facility] , Serum globulin measurement ( mass/volume)Ordered By: Everett Valdez on 12-16-2024 Globulin (S) [Mass/Vol] Serum globulin measurement (mass/volume) 2.2-3.9 [facility] Serum homogeneous pattern an tinuclear antibody (CHUYITA) titerOrdered By: Everett Valdez on 12-16-2024 Homogenous nuclear Ab pattern (S) [Titer] Serum homogeneous pattern antinuclear antibody (CHUYITA) titer [facility] Serum immunofixation electro phoresisOrdered By: Everett Valdez on 12-16-2024 Serum Immunofixation Comment . [facility] Comment on above: No monoclonality det ected. Serum nuclear antibody titer Ordered By: Everett Valdez on 12-16-2024 Nuclear Ab (S) [Titer] Serum nuclear antibody titer . [facility] Comment on above: Negative <1:80 Borde rline 1:80 Positive >1:80ICAP nomenclature: [id number] more information about Hep-2 cell patterns useANApatterns.org, the official website for theInternational Consensus on Antinuclear Antibody (CHUYITA)Patterns (ICAP).Performed at: [facility] [id number] Director: Erick Neville PhD, Phone: [phone] Serum or plasma IgA measurem ent (mass/volume)Ordered By: Everett Valdez on 12-16-2024 IgA [Mass/Vol] IgA [Mass/volume] in Serum or Plasma 87-835 [facility] Serum or plasma IgG measurem ent (mass/volume)Ordered By: Everett Valdez on 12-16-2024 IgG [Mass/Vol] IgG [Mass/volume] in Serum or Plasma [phone] [facility] Serum or plasma IgM measurem ent (mass/volume)Ordered By: Everett Valdez on 12-16-2024 IgM [Mass/Vol] IgM [Mass/volume] in Serum or Plasma 26-217 [facility] Comment on above: Performed at: [facility] [address] [id number] Director: Erick Neville PhD, Phone: [phone] Serum or plasma albumin ravinder urement (mass/volume)Ordered By: Everett Valdez on 12-16-2024 Albumin [Mass/Vol] Albumin [Mass/volume ] in Serum or Plasma 2.9-4.4 [facility] Serum or plasma albumin/glob ulin mass ratioOrdered By: Everett Valdez on 12-16-2024 Albumin/Globulin [Mass ratio] Serum or plasma albumin/globulin mass ratio 0.7-1.7 [facility] Serum or plasma alpha 1 glob ulin measurement by electrophoresis (mass/volume)Ordered By: Everett Valdez on 12-16-2024 Alpha 1 globulin Elph [Mass/Vol] Serum or plasma alpha 1 globulin measurement by electrophoresis (mass/volume) 0.0-0.4 [facility] Serum or plasma alpha 2 glob ulin measurement by electrophoresis (mass/volume)Ordered By: Everett Valdez on 12-16-2024 Alpha 2 globulin Elph [Mass/Vol] Serum or plasma alpha 2 globulin measurement by electrophoresis (mass/volume) 0.4-1.0 [facility] Serum or plasma anion gap de terminationOrdered By: Everett Valdez on 12-16-2024 Anion gap [Moles/Vol] Serum or plasma an ion gap determination 6.0-15.0 [facility] Serum or plasma beta globuli n measurement by electrophoresis (mass/volume)Ordered By: Everett Valdez on 12-16-2024 Beta globulin Elph [Mass/Vol] Serum or plasma beta globulin measurement by electrophoresis (mass/volume) 0.7-1.3 [facility] Serum or plasma chromatin an tibody assay (units/volume)Ordered By: Everett Valdez on 12-16-2024 Chromatin Ab Qn Serum or plasma chromatin antibody assay (units/volume) 0.0-0.9 [facility] Comment on above: Performed at: [facility] [id number] [place], [place] [id number] Director: Erick Neville PhD, Phone: [phone] Serum or plasma complement C 3 measurement (mass/volume)Ordered By: Everett Valdez on 12-16-2024 Complement C3 [Mass/Vol] Serum or plasma complement C3 measurement (mass/volume) 82-167 [facility] Comment on above: Performed at: [facility] [id number] [place], [place] [id number] Director: Erick Neville PhD, Phone: [phone] Serum or plasma complement C 4 measurement (mass/volume)Ordered By: Everett Valdez on 12-16-2024 Complement C4 [Mass/Vol] Serum or plasma complement C4 measurement (mass/volume) 12-38 [facility] Serum or plasma gamma globul in measurement by electrophoresis (mass/volume)Ordered By: Everett Valdez on 12-16-2024 Gamma globulin Elph [Mass/Vol] Serum or plasma gamma globulin measurement by electrophoresis (mass/volume) 0.4-1.8 [facility] Serum or plasma thyroglobuli n antibody assay (units/volume)Ordered By: Everett Valdez on 12-16-2024 Thyroglobulin Ab Qn Serum or plasma thyroglobulin antibody assay (units/volume) 0.0-0.9 [facility] Comment on above: Thyroglobulin Antibo dy measured by Jorje [employer] MedicalMethodologyIt should be noted that the presence of thyroglobulinantibodies may not be pathogenic nor diagnostic, especiallyat very low levels. The assay foreign food cook specialty has found thatfour percent of individuals without evidence of thyroiddisease or autoimmunity will have positive TgAb levels upto 4 IU/mL.Performed at: [facility] [id number] [place], [place] [id number] Director: Erick Neville PhD, Phone: [phone] Serum or plasma thyroperoxid ase antibody assay (units/volume)Ordered By: Everett Valdez on 12-16-2024 TPO Ab Qn Serum or plasma thyroperoxidase antibody assay (units/volume) 0-34 [facility] Comment on above: Performed at: [id number] [place], [place] [id number] Director: Erick Neville PhD, Phone: [phone] Sodium [Moles/volume] in Ser um or PlasmaOrdered By: Everett Valdez on 12-16-2024 Sodium [Moles/Vol] Sodium [Moles/volume ] in Serum or Plasma 136-145 [facility] Specific gravity Test strip (U) [Rel density]Ordered By: Everett Valdez on 12-16-2024 Specific gravity (U) [Rel density] Specific gravity of Urine by Test strip 1.001-1.030 [facility] Thyroid Peroxidase Antibodie son 12-16-2024 Thyroid Peroxidase Antibodies 10 [IU]/mL Normal 0-34 [facility] Comment on above: Result Comment: Perf ormed at: [facility] [id number] [employer]: Erick Neville PhD, Phone: [phone] Performed By: #### P P #### [address] #### LUPANTCOAG #### [facility] , Thyroid Stimulating Hormoneo n 12-16-2024 TSH Qn 1.48 m[IU]/L Normal 0.45-5.33 [facility] Comment on above: Result Comment: PERF ORMED BY: [place] [address] PATHOLOGIST CREATIVE PROJECT MANAGER PAZ GUILLERMO M.D. Performed By: #### E SR, TSH3, CK, ADDONUAPLUS, CBC, CRP, CMP, T4F #### [address] #### RPR W RFX, ALDOLASE, GUZMAN,URINE, UPE RAND #### [facility] , Thyrotropin [Units/volume] i n Serum or PlasmaOrdered By: Everett Valdez on 12-16-2024 TSH Qn Thyrotropin [Units/volume] in Serum or Plasma 0.45-5.33 [facility] Thyroxine (T4) free [Mass/vo lume] in Serum or PlasmaOrdered By: Everett Valdez on 12-16-2024 Free T4 [Mass/Vol] Thyroxine (T4) free [Mass/volume] in Serum or Plasma 0.61-1.12 [facility] Total hemolytic complement C H50 assayOrdered By: Everett Valdez on 12-16-2024 Total Complement (CH50) >60 U/mL >41 [facility] Comment on above: Age Male Female 3 [...] to determine out of range values.Performed at: [facility] [id number] Director: Erick Neville PhD, Phone: [phone] Urea nitrogen [Mass/volume] in Serum or PlasmaOrdered By: Everett Valdez on 12-16-2024 Urea nitrogen [Mass/Vol] Urea nitrogen [Mass/volume] in Serum or Plasma 05-30 [facility] Urine alpha 1 globulin/total protein by electrophoresisOrdered By: Everett Valdez on 12-16-2024 Alpha 1 globulin Elph (U) [Mass fraction] Urine alpha 1 globulin/total protein by electrophoresis . [facility] Urine alpha 2 globulin/total protein ratio by electrophoresisOrdered By: Everett Valdez on 12-16-2024 Alpha 2 globulin Elph (U) [Mass fraction] Urine alpha 2 globulin/total protein ratio by electrophoresis . [facility] Urine beta globulin measurem ent by electrophoresis (mass/volume)Ordered By: Everett Valdez on 12-16-2024 Beta globulin Elph (U) [Mass/Vol] Urine beta globulin measurement by electrophoresis (mass/volume) . [facility] Urine protein measurement (m ass/volume)Ordered By: Everett Valdez on 12-16-2024 Protein (U) [Mass/Vol] Protein [Mass/volume] in Urine Not Estab. [facility] Urobilinogen Test strip (U) [Mass/Vol]Ordered By: Everett Valdez on 12-16-2024 Urobilinogen (U) [Mass/Vol] Urobilinogen [Mass/volume] in Urine by Test strip Normal [facility] WBC Auto (Bld) [#/Vol]Ordere d By: Everett Valdez on 12-16-2024 WBC (Bld) [#/Vol] Leukocytes [#/volume ] in Blood by Automated count 3.8-11.6 [facility] aPTT in Platelet poor plasma by Coagulation assayOrdered By: Everett Valdez on 12-16-2024 aPTT Coag (PPP) [Time] Activated partial thromboplastin time (aPTT) in platelet poor plasma by coagulation a 25.1-36.5 [facility] Comment on above: A hematocrit value g reater than 55% may lead to inaccurate results in coagulation testing. Patients having hematocrit values >55% require a special collection tube for coagulation studies. Please contact the laboratory at [phone] for redraw instructions. aPTT.lupus sensitive/aPTT.hattie pus sensitive W excess phospholipid (screen to confirm raOrdered By: Everett Valdez on 12-16-2024 aPTT.lupus sensitive/aPTT.lupus sensitive W excess phospholipid Coag (PPP) [Ratio] aPTT.lupus sensitive/aPTT.lupus sensitive W excess phospholipid (screen to confirm ra 0.00-1.34 [facility] pH Test strip (U)Ordered By: Everett Valdez on 12-16-2024 pH (U) pH of Urine by Test strip 5.0-9.0 [facility] HBV surface Ab IA Qnon 12-11 Anti HBs quant. >500.00 Normal [facility] Comment on above: Result Comment: NOTE Vaccinated: >=10.00 mIU/mL, Positive (Immune) Unvaccinated: <10.00 mIU/mL, Negative (Not Immune) Interpretive values have changed due to implementation of a new method. Values run higher than previous method. Performed By: #### 3 5275-7, 49213-6, 8014-3, 5193-8, 6476-6 #### [facility] ([id number]) [address] [place] [address] MeV IgG IA Ql (S)on 12-11-19 RUBEOLA AB SCREEN 4.1 AI High <0.9 [facility] Comment on above: Result Comment: POSI TIVE: Antibody(IgG) detected. Indicates previous exposure to rubeola virus and immunity. Performed By: #### 3 5275-7, 75983-5, 8014-3, 5193-8, 6476-6 #### [facility] ([id number]) [address] [place] [address] MuV IgG IA Ql (S)on 12-11-19 MUMPS VIRUS IgG 2.1 AI High <0.9 [facility] Comment on above: Result Comment: Interpretation-------- <0.9 Negative 0.9 - 1.0 Equivocal >1.0 Positive Performed By: #### 3 5275-7, 40987-0, 8014-3, 5193-8, 6476-6 #### [facility] ([id number]) [address] [place] [address] Rubella virus IgG Qn (S)on 0 12-11-2024 RUBELLA IgG 19 IU/mL Normal [facility] Comment on above: Result Comment: Interpretation-------- <8 NEGATIVE-considered Not Immune 8-9 EQUIVOCAL-consider retesting with new specimen >9 POSITIVE-considered Immune Performed By: #### 3 5275-7, 59351-0, 8014-3, 5193-8, 6476-6 #### [facility] ([id number]) [address] [place] [address] VZV IgG IA Ql (S)on 12-11-19 VARICELLA IgG >8.0 High <0.9 [facility] Comment on above: Result Comment: Interpretation-------- <0.9 Negative 0.9 - 1.0 Equivocal >1.0 Positive Performed By: #### 3 5275-7, 93736-5, 8014-3, 5193-8, 6476-6 #### [facility] ([id number]) [address] [place] [address], [address] [place] [address] X-ray reportOrdered By: Brett Bullard on 11-20-2024 Study report [facility] [address] [address] XRay Report Signed Patient: Mary Leal MR#: [id number] : 1970 Acct:[id number] Age/Sex: 54 / F ADM Date: 5 Loc: XD Room: Type: [facility] Attending Dr: Anibal Medrano DO Copies [...] Andres Bullard M.D.11/20/2024 10:02 PM Dictation Location: [place] [address] Transcribed By: [facility] 11/20/242201 Dictated By: Andres Bullard DO 11/20/242158 Signed By: 11/20/242201 [facility] XR shoulder BI min 2Von 11-06 XR shoulder BI min 2V [facility] [address] [address] XRay Report Signed Patient: Mary Leal MR#: [id number] : 1970 Acct:[id number] Age/Sex: 54 / F ADM Date: 11/20/24 Loc: XD Room: Type: [facility] Attending Dr: Anibal Medrano DO Copies [...] Andres Bullard M.D.11/20/2024 10:02 PM Dictation Location: [place] [address] Transcribed By: [facility] 11/20/242201 Dictated By: Andres Bullard DO 11/20/242158 Signed By: 11/20/242201 Normal [facility] NM gastric emptying studyon 11-14-2024 NM gastric emptying study [facility] [address] [address] Nuclear Medicine Report Signed Patient: Mary Leal MR#: [id number] : 1970 Acct:[id number] Age/Sex: 54 / F ADM Date: 11/14/24 Loc: [facility]: [facility] Attending Dr: Padmaja Ledezma MD Copies to: Quinton Melendez Jr, DO Padmaja Ledezma MD Ordering Provider: Padmaja Ledezma MD Date [...] 1:54 PM Dictation Location: RADIO-PC-19 Transcribed By: [facility] 11/14/24 1354 Dictated By: Quinton Melendez Jr, DO 11/14/24 135 Signed By: 11/14/24 1354 Normal [facility] Basic Metabolic Panelon 10-06 Anion gap [Moles/Vol] 9.4 mmol/L Normal 6.0-15.0 [facility] Comment on above: Performed By: #### B MP #### [address] Calcium [Mass/Vol] 9.0 mg/dL Normal 8.6-10.3 [facility] Comment on above: Performed By: #### B MP #### [address] Chloride [Moles/Vol] 107 mmol/L Normal 98-107 [facility] Comment on above: Performed By: #### B MP #### [facility] [address] [place] [id number] [facility] CO2 [Moles/Vol] 27.3 mmol/L Normal 21.0-31.0 [facility] Comment on above: Performed By: #### B MP #### [facility] [address] [place] [id number] [place] Creatinine [Mass/Vol] 0.69 mg/dL Normal 0.60-1.20 [facility] Comment on above: Performed By: #### B MP #### [facility] [address] [place] [id number] [place] Creatinine Clr Calc Pharmacy 91.21 Normal [facility] Comment on above: Result Comment: PERF ORMED BY: [place] [address] PATHOLOGIST CREATIVE PROJECT MANAGER PAZ GUILLERMO M.D. Performed By: #### B MP #### [place] [address] [place] GFR/1.73 sq M.predicted MDRD (S/P/Bld) [Vol rate/Area] mL/min/{1.73_m2} Normal [facility] Comment on above: Performed By: #### B MP #### [address] Glucose [Mass/Vol] 93 mg/dL Normal 70-100 [facility] Comment on above: Result Comment: [place] Glucose Reference Range is dependent on time and content of last meal. Glucose of more than 200 mg/dL in a nonstressed, ambulatory subject supports the diagnosis of Diabetes Mellitus. ADA recommended reference range Performed By: #### B MP #### [address] Potassium [Moles/Vol] 3.7 mmol/L Normal 3.5-5.1 [facility] Comment on above: Performed By: #### B MP #### [address] Sodium [Moles/Vol] 140 mmol/L Normal 136-145 [facility] Comment on above: Performed By: #### B MP #### [place] [address] [place] Urea nitrogen [Mass/Vol] 14 mg/dL Normal 7-25 [facility] Comment on above: Performed By: #### B MP #### [place] [address] [place] Basophils Auto (Bld) [#/Vol] Ordered By: Cullen Christianson on 10-24-2024 Basophils (Bld) [#/Vol] Automated basophil count 0.0-0.2 [facility] Basophils/100 WBC Auto (Bld) Ordered By: Cullen Christianson on 10-24-2024 Basophils/100 WBC (Bld) Automated basophil % . [facility] Calcium [Mass/volume] in Ser um or PlasmaOrdered By: Cullen hCristianson on 10-24-2024 Calcium [Mass/Vol] Calcium [Mass/volume ] in Serum or Plasma 8.6-10.3 [facility] Carbon dioxide, total [Moles /volume] in Serum or PlasmaOrdered By: Cullen Christianson on 10-24-2024 CO2 [Moles/Vol] Carbon dioxide, tota l [Moles/volume] in Serum or Plasma 21.0-31.0 [facility] Chloride [Moles/volume] in S jay or PlasmaOrdered By: Cullen Christianson on 10-24-2024 Chloride [Moles/Vol] Chloride [Moles/volume] in Serum or Plasma 98-107 [facility] Complete Blood Count Auto Di ffon 10-24-2024 Basophils (Bld) [#/Vol] 0.1 10*3/uL Normal 0.0-0.2 [facility] Comment on above: Result Comment: PERF ORMED BY: [place] [address] PATHOLOGIST CREATIVE PROJECT MANAGER PAZ GUILLERMO M.D. Performed By: #### C BC #### [address] Basophils/100 WBC (Bld) 1.1 % Normal . [facility] Comment on above: Performed By: #### C BC #### [place] [address] [place] Eosinophils (Bld) [#/Vol] 0.2 10*3/uL Normal 0.0-0.45 [facility] Comment on above: Performed By: #### C BC #### [address] Eosinophils/100 WBC (Bld) 3.7 % Normal . [facility] Comment on above: Performed By: #### C BC #### [address] Erythrocyte distribution width (RBC) [Ratio] 13.1 % Normal 11.9-15.3 [facility] Comment on above: Performed By: #### C BC #### [address] Hematocrit (Bld) [Volume fraction] 37.9 % Normal 34.0-46.4 [facility] Comment on above: Performed By: #### C BC #### [address] Hemoglobin (Bld) [Mass/Vol] 12.8 g/dL Normal 11.8-15.4 [facility] Comment on above: Performed By: #### C BC #### [address] Lymphocytes (Bld) [#/Vol] 1.5 10*3/uL Normal 1.00-4.8 [facility] Comment on above: Performed By: #### C BC #### [address] Lymphocytes/100 WBC (Bld) 29.9 % Normal . [facility] Comment on above: Performed By: #### C BC #### [address] MCH (RBC) [Entitic mass] 28.7 pg Normal 24.7-34.3 [facility] Comment on above: Performed By: #### C BC #### [address] MCV (RBC) [Entitic vol] 85.1 fL Normal 80-100 [facility] Comment on above: Performed By: #### C BC #### [address] Mean Corpuscular HGB Conc 33.8 g/dL Normal 32.0-35.0 [facility] Comment on above: Performed By: #### C BC #### [address] Monocytes (Bld) [#/Vol] 0.4 10*3/uL Normal 0.0-0.8 [facility] Comment on above: Performed By: #### C BC #### [facility] [address] [place] [address] [place] Monocytes/100 WBC (Bld) 7.8 % Normal . [facility] Comment on above: Performed By: #### C BC #### [facility] [address] [place] [address] [place] Neutrophils (Bld) [#/Vol] 2.9 10*3/uL Normal 1.8-7.7 [facility] Comment on above: Performed By: #### C BC #### [address] Neutrophils/100 WBC (Bld) 57.5 % Normal . [facility] Comment on above: Performed By: #### C BC #### [address] NRBC% 0.1 /100{WBC} Normal 0-0.5 [facility] Comment on above: Performed By: #### C BC #### [address] Platelet mean volume (Bld) [Entitic vol] 7.1 fL Normal 6.3-10.7 [facility] Comment on above: Performed By: #### C BC #### [place] [address] [place] Platelets (Bld) [#/Vol] 307 10*3/uL Normal 150-450 [facility] Comment on above: Performed By: #### C BC #### [place] [address] [place] RBC (Bld) [#/Vol] 4.45 10*6/uL Normal 3.60-5.00 [facility] Comment on above: Performed By: #### C BC #### [place] [address] [place] WBC (Bld) [#/Vol] 5.0 10*3/uL Normal 3.8-11.6 [facility] Comment on above: Performed By: #### C BC #### [address] [place] [address] [facility] Creatinine [Mass/volume] in Serum or PlasmaOrdered By: Cullen Christianson on 10-24-2024 Creatinine [Mass/Vol] Creatinine [Mass/volume] in Serum or Plasma 0.60-1.20 [facility] Eosinophils Auto (Bld) [#/Vo l]Ordered By: Cullen Christianson on 10-24-2024 Eosinophils (Bld) [#/Vol] Automated eosinophil count 0.0-0.45 [facility] Eosinophils/100 WBC Auto (Bl d)Ordered By: Cullen Christianson on 10-24-2024 Eosinophils/100 WBC (Bld) Automated eosinophil % . [facility] Erythrocyte distribution wid th Auto (RBC) [Ratio]Ordered By: Clulen Christianson on 10-24-2024 Erythrocyte distribution width (RBC) [Ratio] Erythrocyte distribution width [Ratio] by Automated count 11.9-15.3 [facility] Glucose [Mass/volume] in Ser um or PlasmaOrdered By: Cullen Christianson on 10-24-2024 Glucose [Mass/Vol] Glucose [Mass/volume ] in Serum or Plasma 70-100 [facility] Comment on above: ADA recommended refe rence rangeRandom Glucose Reference Range is dependent on time and content of last meal. Glucose of more than 200 mg/dL in a nonstressed, ambulatory subject supports the diagnosis of Diabetes Mellitus. Hematocrit Auto (Bld) [Volum e fraction]Ordered By: Cullen Christianson on 10-24-2024 Hematocrit (Bld) [Volume fraction] Hematocrit [Volume Fraction] of Blood by Automated count 34.0-46.4 [facility] Hemoglobin [Mass/volume] in BloodOrdered By: Cullen Christianson on 10-24-2024 Hemoglobin (Bld) [Mass/Vol] Hemoglobin [Mass/volume] in Blood 11.8-15.4 [facility] Leukocytes [#/volume] correc herbert for nucleated erythrocytes in Blood by Automated counOrdered By: Cullen Christianson on 10-24-2024 WBC corrected for nucl RBC Auto (Bld) [#/Vol] Leukocytes [#/volume] corrected for nucleated erythrocytes in Blood by Automated coun 3.8-11.6 [facility] Lymphocytes Auto (Bld) [#/Vo l]Ordered By: Cullen Christianson on 10-24-2024 Lymphocytes (Bld) [#/Vol] Lymphocytes [#/volume] in Blood by Automated count 1.00-4.8 [facility] Lymphocytes/100 WBC Auto (Bl d)Ordered By: Cullen Christianson on 10-24-2024 Lymphocytes/100 WBC (Bld) Lymphocytes/100 leukocytes in Blood by Automated count . [facility] MCH Auto (RBC) [Entitic mass ]Ordered By: Cullen Christianson on 10-24-2024 MCH (RBC) [Entitic mass] MCH [Entitic mass] by Automated count 24.7-34.3 [facility] MCHC Auto (RBC) [Mass/Vol]Or dered By: Cullen Christianson on 10-24-2024 MCHC (RBC) [Mass/Vol] MCHC [Mass/volume] by Automated count 32.0-35.0 [facility] MCV Auto (RBC) [Entitic vol] Ordered By: Cullen Christianson on 10-24-2024 MCV (RBC) [Entitic vol] MCV [Entitic volume] by Automated count 80-100 [facility] Monocytes Auto (Bld) [#/Vol] Ordered By: Cullen Christianson on 10-24-2024 Monocytes (Bld) [#/Vol] Automated blood monocyte count 0.0-0.8 [facility] Monocytes/100 WBC Auto (Bld) Ordered By: Cullen Christianson on 10-24-2024 Monocytes/100 WBC (Bld) Automated monocyte % . [facility] Neutrophils Auto (Bld) [#/Vo l]Ordered By: Cullen Christianson on 10-24-2024 Neutrophils (Bld) [#/Vol] Neutrophils [#/volume] in Blood by Automated count 1.8-7.7 [facility] Neutrophils/100 WBC Auto (Bl d)Ordered By: Cullen Christianson on 10-24-2024 Neutrophils/100 WBC (Bld) Automated neutrophil % . [facility] No Panel InformationOrdered By: Cullen Christianson on 10-24-2024 Estimated GFR (CKD-EPI) > 60.0 mL/Min [facility] Creatinine Clearance (Chem 91.21 [facility] Nucleated erythrocytes [Pres ence] in Blood by Automated countOrdered By: Cullen Christianson on 10-24-2024 Nucleated RBC Auto Ql (Bld) Nucleated erythrocytes [Presence] in Blood by Automated count 0-0.5 [facility] Platelet mean volume Auto (B ld) [Entitic vol]Ordered By: Cullen Christianson on 10-24-2024 Platelet mean volume (Bld) [Entitic vol] Platelet mean volume [Entitic volume] in Blood by Automated count 6.3-10.7 [facility] Platelets Auto (Bld) [#/Vol] Ordered By: Cullen Christianson on 10-24-2024 Platelets (Bld) [#/Vol] Platelets [#/volume] in Blood by Automated count 150-450 [facility] Potassium [Moles/volume] in Serum or PlasmaOrdered By: Cullen Christianson on 10-24-2024 Potassium [Moles/Vol] Potassium [Moles/volume] in Serum or Plasma 3.5-5.1 [facility] RBC Auto (Bld) [#/Vol]Ordere d By: Cullen Christianson on 10-24-2024 RBC (Bld) [#/Vol] Erythrocytes [#/volume] in Blood by Automated count 3.60-5.00 [facility] Serum or plasma anion gap de terminationOrdered By: Cullen Christianson on 10-24-2024 Anion gap [Moles/Vol] Serum or plasma an ion gap determination 6.0-15.0 [facility] Sodium [Moles/volume] in Ser um or PlasmaOrdered By: Cullen Christianson on 10-24-2024 Sodium [Moles/Vol] Sodium [Moles/volume ] in Serum or Plasma 136-145 [facility] Urea nitrogen [Mass/volume] in Serum or PlasmaOrdered By: Cullen Christianson on 10-24-2024 Urea nitrogen [Mass/Vol] Urea nitrogen [Mass/volume] in Serum or Plasma 7-25 [facility] WBC Auto (Bld) [#/Vol]Ordere d By: Cullen Christianson on 10-24-2024 WBC (Bld) [#/Vol] Leukocytes [#/volume ] in Blood by Automated count 3.8-11.6 [facility] Boyd 10-23-2024 L -- ---- Specimen: [id number] Received: 10/24/24 Status: CASEY Pastrana Num: [id number] Spec Type: Surgical Subm Dr: Dipti Acevedo DO Tissues: A Vaginal mucosa-other than incidental (GRANULATION TISSUE) Procedures: Praneeth SOTELO/Nadja L4 ---- Age/ Patient Sex Location Account Attending Physician ---- Mary Leal 54/F [place] [id number] Dipti Acevedo DO ---- SPEC NUM: [id number] RECD: 10/24/24 STATUS: CASEY PASTRANA NUM: [id number] BOAZ: 10/23/24- [facility] DR: Dipti Acevedo DO ENTERED: 10/24/24 [facility] DR: SPEC TYPE: Surgical DEPT: S ENTERED BY: [id number] RECV BY: [id number] ORDERED: ASHLEIGH Gross/Micro L4 ORDERED: ASHLEIGH, Gross/Micro L4 Pathological Diagnosis Vaginal mucosa, vaginal [...] submitted in a single cassette. (1, ns, [id number]) LES ---- Specimen: [id number] Received: 10/24/24 Status: CASEY Teemateo Num: [id number] Spec Type: Surgical Subm Dr: Dipti Acevedo DO Tissues: A Vaginal mucosa-other than incidental (GRANULATION TISSUE) Procedures: ASHLEIGH Gross/Micro L4 ---- Patient: Mary Leal [id number] (Continued) ---- Specimen: [id number] Received: 10/24/24 (Continued) Signed (signature on file) Kiara Velasco MD 10/26/24 1126 ---- Specimen: [id number] Received: 10/24/24 Status: CASEY Zeina Num: [id number] Spec Type: Surgical Subm Dr: Dipti Acevedo, Tissues: A Vaginal mucosa-other than incidental (GRANULATION TISSUE) Procedures: Praneeth SOTELO/Nadja Fisher ---- Patient: Mary Leal [id number] (Continued) ---- Specimen: [id number] Received: 10/24/24 (Continued) Microscopic Description Microscopic examinations are performed supporting the above interpretation CPT Codes 75122 ---- ---- Specimen: [id number] Received: 10/24/24 Status: CASEY Pastrana Num: [id number] Spec Type: Surgical Subm Dr: Dipti Acevedo DO Tissues: A Vaginal mucosa-other than incidental (GRANULATION TISSUE) Procedures: Praneeth SOTELO/Nadja L4 ---- Patient: Mary Leal [id number] (Continued) ---- Signed (signature on file) ChinRadhaJcarlos Velasco, MD 10/26/24 1126 Normal [facility] MR cervical spine wo conon 1 12-11-2023 MR cervical spine wo con [facility] [place] [address] [place], [place] [id number] MRI Report Signed Patient: Mary Leal MR#: [id number] 863 : 1970 Acct:[id number] Age/Sex: 54 / F ADM Date: 10/10/24 Loc: [facility]CM[facility] Room: Type: REG CLI Attending Dr: Anibal [...] Howie Garcia M.D.10/10/2024 3:47 PM Dictation Location: [place] [address] Transcribed By: [facility] 10/10/24 1547 Dictated By: Howie Garcia II, MD 10/10/24 1543 Signed By: 10/10/24 1547 Normal [facility] MR lumbar spine wo conon MR lumbar spine wo [place] [address] MRI Report Signed Patient: Mary Leal MR#: [id number] 863 : 1970 Acct:[id number] Age/Sex: 54 / F ADM Date: 10/10/24 Loc: [facility] Room: Type: [facility] Attending Dr: Monica IBARRA Copies to: [...] Howie Garcia M.D.10/10/2024 3:55 PM Dictation Location: [place] [address] Transcribed By: [facility] 10/10/24 1555 Dictated By: Howie Garcia II, MD 10/10/24 1547 Signed By: 10/10/24 1555 Normal [facility] XR pre/post mri xrayon 10-10 XR pre/post mri [place] [address] XRay Report Signed Patient: Mary Leal MR#: [id number] 863 : 1970 Acct:[id number] Age/Sex: 54 / F ADM Date: 10/10/24 Loc: [facility] Room: Type: [facility] Attending Dr: Anibal Medrano DO Copies [...] Howie Garcia M.D.10/10/2024 3:58 PM Dictation Location: [place] [address] Transcribed By: [facility] 10/10/24 1558 Dictated By: Howie Garcia II, MD 10/10/24 1555 Signed By: 10/10/24 1558 Normal [facility] Urinalysis macro (dipstick) panel (U)on 09-04-2024 Bilirubin, UA Negative Negative - 4(70) +++ mg/dL [facility] Blood, UA Negative Negative - 50 Devin/mcL [facility] Clarity, UA Clear [facility] Color, UA Yellow [facility] Glucose, UA Negative Negative - 2000(110) ++++ mg/dL [facility] Ketones, UA Negative Negative - 160(16) ++++ mg/dL [facility] Leukocytes, UA Negative Negative - 500+++ Aicha/mcL [facility] Nitrite, UA Negative Negative - Positive [facility] pH, UA 5 5 - 9 [facility] Protein, UA Negative Negative - 2000(20) ++++ mg/dL [facility] Spec Grav, UA 1.01 1 - 1.03 [facility] Urobilinogen, UA 0.2 0.2 - 12 mg/dL [facility] US ABDOMEN LIMITEDon 024 [...] report is generated using voice recognition reporting (FlightOffice). On occasion [employer] erroneously drops words from the report or replaces the spoken word with similar sounding words. Please call with any questions/concerns regarding this report.* Dictated and transcribed 08/28/2024/ This report has been electronically signed and approved by the interpreting radiologist. Electronically Signed Dipti Lockhart II, M.D. 2024-08-28 16:38:48 Normal Not Available Follow-Upon 07-26-2024 Follow-Up [id number] Darrian Leal 1970 F Date Provider Department [place] 07/26/2024 PAULINE SANTACRUZ [facility] No family history on file Level of Service:90133 [place] OFFICE/OUTPATIENT ESTABLISHED MOD MDM 30 MIN Reason for Visit and Comments: Follow-up [632621] - Inspire initiation Normal [facility] 36on 07-12-2024 36 Left voicemail bob mcnulty to reschedule Inspire follow up appointment to 07/26 at 10:00 am. Normal [facility] Telephoneon 07-12-2024 Telephone [id number] Darrian Leal en 1970 F Date Provider Department [place] 07/12/2024 PAULINE SANTACRUZ [facility] No family history on file Reason for Visit and Comments: Reschedule [709] [facility] 36on 06-17-2024 36 Rescheduled cancelle d Inspire follow up appointment for 06/26 at 9:00 am. [facility] 29on 04-28-2024 29 Encounter addended b y: Dick Mann MD on: 05/07/2024 7:26 PM Actions taken: Charge Capture section accepted [facility] Documentationon 04-17-2024 Documentation [id number] Darrian Leal en 1970 F Date Provider Department [place] 04/17/2024 [id number] RADHA [facility] No family history on file [facility] Letter (Out)on 04-17-2024 Letter (Out) [id number] Darrian Leal en 1970 F Date Provider [facility] 04/17/2024 [id number] CASTREJON [facility] family history on file [facility] DIAGNOSTIC UPPER ENDOSCOPYon 04-12-2024 [facility] Patient Name: Mary Leal Procedure Date: 04/12/2024 11:46 AM Date of : 1970 Admit Type: Outpatient Age: 53 Room: [facility] 3 Gender: Female Note Status: Finalized Attending MD: Milagros Franco MD, PHD, [id number] Procedure: Upper GI endoscopy Attending Participation: I personally performed the entire procedure. Indications: Dysphagia, Heartburn Providers: Milagros Franco MD, PHD (Doctor), Stacie Johns RN (Nurse), Nawaf Pinzon, Musical Instrument Maker Or Repairer (Musical Instrument Maker Or Repairer), Everett Maria APRN-BECCA (Anesthesia Staff) Referring MD: [...] verified by the physician, the nurse, the loss prevention detective and the pipe organ technician in the procedure room. Mental Status [...] oxygen saturations were monitored continuously. The Endoscope ([id number]) was introduced through the mouth, and advanced [...] examined (more content not included)... LAB, [facility] Radiology Study observation (narrative) [facility] SURG PATH REQUESTon 04-12-20 Case Report Normal [facility] Comment on above: Result Comment: Surg ical Pathology Report Case: [id number] Authorizing Provider: Milagros Franco MD, Collected: 04/12/2024 12:48 PM PhD Ordering Location: Endoscopy Outpatient Care Received: 04/12/2024 12:57 PM [facility] Pathologist: Manish Tom MD Specimens: A) - TISSUE, gastric biopsy r/o HP evaluate for eosiniphils (large forceps) B) - TISSUE, GE Junction r/o Barrets (large forceps) Performed By: #### S URGP #### [facility] (DEFAULT) [address] [place] [address] Clinical History Preop Diagnosis: [place] Grade D esophagitis [K20.80]. Early satiety [R68.81]. Unintentional weight loss [R63.4]. Gastroparesis [K31.84]. Medical History: Gastroesophageal reflux disease. Asthma. Benign essential hypertension. History of colectomy. Gastroparesis. Arthritis. Depression. Migraine. Constipation. Normal [facility] Comment on above: Performed By: #### S URGP #### [facility] (DEFAULT) [address] [place] [address] Gross Description Normal [facility] Comment on above: Result [...] dimension. TE 1 Lab Use Only: JobID [id number] Grosser for this case was: Adriana Maradiaga Performed By: #### S URGP #### [facility] (DEFAULT) [address] [address] Microscopic Description A microscopic examination was performed. [facility] Comment on above: Performed By: #### S URGP #### [facility] (DEFAULT) [address] [address] Pathologic Diagnosis [facility] Comment on above: Result Comment: A. S tomach, biopsy: Active erosive esophagitis. No Helicobacter pylori organisms identified. B. GE junction, biopsy: Gastroesophageal squamocolumnar junctional mucosa with reflux pattern of injury. No Vega's specialized columnar epithelium (intestinal metaplasia) identified. Performed By: #### S URGP #### [facility] (DEFAULT) [address] [place] [address] Professional Interpretation Performed at: [facility] Comment on above: Result Comment: [facility] For Immediate Release [facility] Yes [address] [place] [address] Performed By: #### S URGP #### [facility] (DEFAULT) [address] [place] [address] 36on 04-10-2024 36 Left voicemail to [facility] to schedule Inspire follow up appointment following sleep study on 04/28. Offered 06/05 at 8:30 am or 4:00 pm OR 06/12 at 8:30 am. [facility] Telephoneon 04-10-2024 Telephone [id number] Darrian Leal en 1970 F Date Provider Department Center 04/10/2024 PAULINE SANTACRUZ [facility] SLEEP [facility] No family history on file Reason for Visit and Comments: Appointment [375] [facility] Follow-Upon 04-03-2024 Follow-Up [id number] Darrian Leal en 1970 F Date Provider Department Center 04/03/2024 PAULINE SANTACRUZ [facility] SLEEP [facility] No family history on file Level of Service:27567 [place] OFFICE/OUTPATIENT ESTABLISHED MOD MDM 30 MIN Reason for Visit and Comments: Follow-up [269405] - Pt has the Inspire and is here for a follow up. She states it is unbelievable how well it is working for her. She is sleeping through the night, which she hasn't done for years. She is here for a few small adjustments, such as moving it from 6 hours of sleep a night to 8. Normal [facility] CBC AND ELECTRONIC DIFFon Basophils (Bld) [#/Vol] 0.04 10*3/uL Normal 0.00-0.15 [facility] Comment on above: Performed By: #### L AB980 #### [facility] (DEFAULT) [address] [place] [address] Basophils/100 WBC (Bld) 0.6 % Normal [facility] Comment on above: Performed By: #### L AB980 #### [facility] (DEFAULT) [address] [place] [address] DIFF STATUS Electronic Differential Normal [facility] Comment on above: Performed By: #### L AB980 #### [facility] (DEFAULT) [address] [place] [address] Eosinophils (Bld) [#/Vol] 0.08 10*3/uL Normal 0.00-0.42 [facility] Comment on above: Performed By: #### L AB980 #### [facility] (DEFAULT) [address] [place] [address] Eosinophils/100 WBC (Bld) 1.2 % Normal [facility] Comment on above: Performed By: #### L AB980 #### [facility] (DEFAULT) [address] [address] Hematocrit (Bld) [Volume fraction] 40.1 % Normal 34.9-44.3 [facility] Comment on above: Performed By: #### L AB980 #### [facility] (DEFAULT) [address] [place] [address] Hemoglobin (Bld) [Mass/Vol] 12.6 g/dL Normal 11.4-15.2 [facility] Comment on above: Performed By: #### L AB980 #### [facility] (DEFAULT) [address] [address] Immature Grans % 0.5 % Normal [facility] Comment on above: Performed By: #### L AB980 #### [facility] (DEFAULT) [address] [address] Immature Grans Absolute < Normal <=0.08 [facility] Comment on above: Performed By: #### L AB980 #### [facility] (DEFAULT) [address] [address] Lymphocytes (Bld) [#/Vol] 2.05 10*3/uL Normal 1.16-3.51 [facility] Comment on above: Performed By: #### L AB980 #### [facility] (DEFAULT) [address] [address] Lymphocytes/100 WBC (Bld) 31.6 % Normal [facility] Comment on above: Performed By: #### L AB980 #### [facility] (DEFAULT) [address] [address] MCV (RBC) [Entitic vol] 86.6 fL Normal 79.6-97.7 [facility] Comment on above: Performed By: #### L AB980 #### [facility] (DEFAULT) [address] [address] Mean Cell Hgb 27.2 pg Normal 25.9-33.9 [facility] Comment on above: Performed By: #### L AB980 #### [facility] (DEFAULT) [address] [address] Mean Cell Hgb Conc 31.4 g/dL Normal 31.4-35.9 [facility] Comment on above: Performed By: #### L AB980 #### [facility] (DEFAULT) [address] [address] Monocytes (Bld) [#/Vol] 0.47 10*3/uL Normal 0.22-0.87 [facility] Comment on above: Performed By: #### L AB980 #### [facility] (DEFAULT) [address] [place] [address] Monocytes/100 WBC (Bld) 7.3 % Normal [facility] Comment on above: Performed By: #### L AB980 #### [facility] (DEFAULT) [address] [place] [address] Nucleated RBC 0.0 /100 WBC Normal <=0.2 [facility] Comment on above: Performed By: #### L AB980 #### [facility] (DEFAULT) [address] [place] [address] Platelet mean volume (Bld) [Entitic vol] 9.3 fL Normal 8.5-12.2 [facility] Comment on above: Performed By: #### L [id number] #### [facility] (DEFAULT) [address] [place] [address] Platelets (Bld) [#/Vol] 370 10*3/uL Normal 150-393 [facility] Comment on above: Performed By: #### L AB980 #### [facility] (DEFAULT) [address] [place] [address] RBC (Bld) [#/Vol] 4.63 10*6/uL Normal 3.91-5.04 [facility] Comment on above: Performed By: #### L AB980 #### [facility] (DEFAULT) [address] [place] [address] RBC Distribution 14.0 % Normal 10.8-14.9 [facility] Comment on above: Performed By: #### L AB980 #### [facility] (DEFAULT) [address] [place] [address] Segs + Bands Auto 58.8 % Normal [facility] Comment on above: Performed By: #### L AB980 #### [facility] (DEFAULT) [address] [place] [address] Segs + Bands,Absolute Auto 3.81 K/uL Normal 1.64-7.28 [facility] Comment on above: Performed By: #### L AB980 #### [facility] (DEFAULT) [address] [place] [address] WBC (Bld) [#/Vol] 6.48 10*3/uL Normal 3.99-11.19 [facility] Comment on above: Performed By: #### L AB980 #### [facility] (DEFAULT) [address] [place] [address] FERRITINon 03-06-2024 Ferritin [Mass/Vol] 9.1 ng/mL Normal 7.3-270.7 [facility] Comment on above: Performed By: #### F ERIB, TSHQR #### [facility] (DEFAULT) [address] [place] [address] HEPATIC FUNCTION PANELon Albumin [Mass/Vol] 4.3 g/dL Normal 3.5-5.0 [facility] Comment on above: Performed By: #### H PAULO, IRBC #### [facility] (DEFAULT) [address] [place] [address] ALP [Catalytic activity/Vol] 87 U/L Normal 32-126 [facility] Comment on above: Performed By: #### H PAULO, IRBC #### [facility] (DEFAULT) [address] [place] [address] ALT [Catalytic activity/Vol] 28 U/L Normal 9-48 [facility] Comment on above: Performed By: #### H PAULO, IRBC #### [facility] (DEFAULT) [address] [place] [address] AST [Catalytic activity/Vol] 27 U/L Normal 10-39 [facility] Comment on above: Performed By: #### H PAULO, IRBC #### [facility] (DEFAULT) [address] [place] [address] Bilirubin [Mass/Vol] 0.4 mg/dL Normal <1.5 [facility] Comment on above: Performed By: #### H PAULO, IRBC #### [facility] (DEFAULT) [address] [place] [address] Bilirubin.indirect [Mass/Vol] 0.1 mg/dL Normal <0.3 [facility] Comment on above: Performed By: #### H PAULO, IRBC #### [facility] (DEFAULT) [address] [place] [address] Protein [Mass/Vol] 6.9 g/dL Normal 6.4-8.3 [facility] Comment on above: Performed By: #### H PAULO, IRBC #### [facility] (DEFAULT) [address] [place] [address] IRON/IRON BINDING/TRANSFERRI Non 03-06-2024 Iron [Mass/Vol] 55 ug/dL Normal 40-174 [facility] Comment on above: Performed By: #### H PAULO, IRBC #### [facility] (DEFAULT) [address] [place] [address]138 Iron Saturation 13 % Low 20-55 [facility] Comment on above: Performed By: #### H PAULO, IRBC #### [facility] (DEFAULT) [address] [place] [address]99 Total Iron Binding Capacity 440 mcg/dL High 250-425 [facility] Comment on above: Performed By: #### H PAULO, IRBC #### [facility] (DEFAULT) [address] [place] [address]147 Transferrin [Mass/Vol] 352 mg/dL Normal 200-400 [facility] Comment on above: Performed By: #### H PAULO, IRBC #### [facility] (DEFAULT) [address] [place] [address]16 MOLECULAR STOOL PARASITE GUEVARA Cindy 03-06-2024 Cryptosporidium Parvum/Hominis By Pcr Negative Normal Negative [facility] Comment on above: Order Comment: Colle [...] Performed By: #### S CPBP #### [facility] (DEFAULT) [address] [address] Entamoeba Histolytica By Pcr Negative Normal Negative [facility] Comment on above: Order Comment: Colle [...] Performed By: #### S CPBP #### [facility] (DEFAULT) [address] [address] Giardia Lamblia By Pcr Negative Normal Negative [facility] Comment on above: Order Comment: Colle [...] Performed By: #### S CPBP #### [facility] (DEFAULT) [address] [address] TSH W/FT4 REFLEXon TSH 1.986 uIU/mL Normal 0.550-4.780 [facility] Comment on above: Performed By: #### F ERIB, TSHQR #### [facility] (DEFAULT) [address] [address] VITAMIN D (25-HYDROXY,TOTAL) on 03-06-2024 25-OH Vitamin D Total 22.2 ng/mL Low 30.0-100.0 [facility] Comment on above: Order Comment: Vitam in D values have been shown to be falsely decreased in lipemic samples and should be interpreted with caution. Result Comment: <10 Deficiency 10-29 Insufficiency 30-100 Optimal Level >100 Possible Toxicity Performed By: #### D 25OH #### [facility] (DEFAULT) [address] [place] [address] BACTERIAL VAGINOSIS NAATon 0 02-27-2024 Interpretation and review of laboratory results Normal [facility] Lactobacillus crispatus+gasseri+riri senii + Gardnerella vaginalis + Atopobium vaginae rRNA JOSÉ MIGUEL+probe Ql (Vag fld) Negative Negative for bacterial vaginosis [facility] Lactobacillus crispatus+gasseri+riri senii + Gardnerella vaginalis + Atopobium vaginae rRNA JOSÉ MIGUEL+probe Ql (Vag fld) Negative Normal Negative for bacterial vaginosis [facility] Comment on above: Order Comment: Speci men Type: SWABOrdering Facility: [facility] Address: [address] [place] [address] Performed By: #### B VAMP, CVTV ####[facility] LABCLIA [id number] [place] [address] [place] BETY/TRICHOMONAS NAATon 0 02-27-2024 C. glabrata RNA JOSÉ MIGUEL+probe Ql (Vag fld) Negative Negative for Bety glabrata [facility] Bety sp DNA JOSÉ MIGUEL+probe Ql (Vag fld) Negative Negative for Bety species [facility] Interpretation and review of laboratory results Normal [facility] T. vaginalis DNA JOSÉ MIGUEL+probe Ql (Unsp spec) Negative Negative for Trichomonas vaginalis by amplification [facility] C. glabrata RNA JOSÉ MIGUEL+probe Ql (Vag fld) Negative Normal Negative for Bety glabrata [facility] Comment on above: Order Comment: Speci men Type: SWABOrdering Facility: [facility] Address: [address] [place] [address] Performed By: #### B VAMP, CVTV ####[facility] LABCLIA [id number] [place] [address] [place] Bety sp DNA JOSÉ MIGUEL+probe Ql (Vag fld) Negative Normal Negative for Bety species [facility] Comment on above: Order Comment: Speci men Type: SWABOrdering Facility: [facility] Address: [address] [place] [address] Performed By: #### B VAMP, CVTV ####[facility] LABCLIA [id number] [place] [address] [place] T. vaginalis DNA JOSÉ MIGUEL+probe Ql (Unsp spec) Negative Normal Negative for Trichomonas vaginalis by amplification [facility] Comment on above: Order Comment: Speci men Type: SWABOrdering Facility: [facility] Address: [address] [place] [address] Performed By: #### B VAMP, CVTV ####[facility] LABCLIA [id number] [place] [address] [place] CNOVon 02-27-2024 CNOV Office Visit (GUMROBERT ) MARY LEAL ([id number]) 1970 F Date Time Provider Department 02/27/24 [...] intermittently- somewhat improved. She has worked with [employer] rep re: interstim setting, now on program [...] you received about pain medications helpful? Yes Presiding Steward offered:Patient declines OBJECTIVE: BP 146/93 Pulse 62 [...] Clear 4 (more content not included)... Normal [facility] UA DIP, URINE (POC)on 2023 BILIRUBIN UA (POCT) Negative Negative [facility] CLARITY UA (POCT) Clear [facility] COLOR UA (POCT) Yellow [facility] GLUCOSE UA (POCT) Negative Negative mg/dL [facility] Hemoglobin Ql (U) Negative Negative [facility] KETONE UA (POCT) Negative Negative mg/dL [facility] LEUKOCYTES UA (POCT) Negative Negative [facility] NITRITE UA (POCT) Negative Negative [facility] PH UA (POCT) 5.5 4.5 - 8.0 [facility] Protein Ql (U) Negative Negative mg/dL [facility] SPECIFIC GRAVITY UA (POCT) >=1.030 1.005 - 1.030 [facility] UROBILINOGEN UA (POCT) 0.2 Normal E.U./dL [facility] Location:[facility], [address] [place] [address], [address] [place] [address] POINT OF CARE [facility] 29on 02-07-2024 29 Addended by: NATHANAEL MENDOZA on: 02/07/2024 12:01 PM Modules accepted: Orders [facility] Follow-Upon 02-07-2024 Follow-Up [id number] Darrian Leal 1970 F Date Provider Department Center 02/07/2024 PAULINE SANTACRUZ [facility] SLEEP [facility] No family history on file Level of Service:42190 [place] OFFICE/OUTPATIENT ESTABLISHED HIGH MDM 40 MIN Reason for Visit and Comments: Follow-up [180625] - Pt is here to activate her Inspire PAP. [facility] Hussain 01-27-2024 CNPN Telephone (GYNMN) MARY LEAL ([id number]) 1970 F Date Time Provider Department 01/27/24 RADHA DUNHAM GYNMN During your visit today, we recorded the following information about you: Radha Dunham MD 01/27/2024 10:54 AM Signed Pony Roll Finisher Resident Telephone Encounter 01/27/2024 10:44 AM Call [...] Discussed with Dr. Mullins, Urogyn fellow physician front office assistant. Radha Dunham MD Obstetrics and Gynecology, PGY1 Pam Wang MD 01/28/2024 8:41 PM Signed OUTGOING TELEPHONE CALL Called patient on 01/27/24 at 11:00AM. Pt still reports a pain in her rectum despite turning down the stimulator. Had patient turn off the stimulator and pain resolved. Will have [employer] rep reach out to patient on Sunday 01/28 to try a different program. Pam Wang Staff Physician, Department of Urogynecology and Pelvic Floor Disorders Kelli Adames 03/14/2024 3:14 PM Signed Received fax regarding letter from [employer] stating that on 01/29/24 the patient reported that they felt a zapping sensation in their rectal nerve . Asking that provider answer questions listed on document. Document scanned into [employer]. Thanks, Lili Montano RN 03/15/2024 11:27 AM Signed Called pt. Verified name/ Verified requested information and form faxed to [employer] @ [phone] Lili Matias RN March 15, 2024 11:27 [...] idiopathic cons (more content not included)... Normal [facility] ANES POSTPROC EVALon 024 ANES POSTPROC EVAL HNO ID: [id number] Author: BONI MURILLO MD Service: ? Author Type: Anesthesiologist Type: Anesthesia Postprocedure Evaluation Filed: 01/26/2024 09:51 Note Text: POST ANESTHESIA EVALUATION NOTE : 1970 Procedure Summary Date: 01/26/24 Room / Location: [address] [facility] Anesthesia Start: 0728 Anesthesia Stop: 09 Procedures: [...] January 26, 2024 TIME: 9:51 AM CSN: [id number] Normal [facility] ANES PRE-OPon 01-26-2024 ANES PRE-OP HNO ID: [id number] Author: BONI MURILLO MD Service: ? Author [...] January 26, 2024 TIME: 7:06 AM CSN: [id number] Normal [facility] BRIEF OP NOTon 01-26-2024 BRIEF OP NOT HNO ID: [id number] Author: SOFIYA MULLINS MD Service: Urogynecology Author Type: Fellow Type: Brief Op Note Filed: 01/26/2024 08:44 Note Text: BRIEF OPERATIVE / PROCEDURE NOTE LOG ID: [id number] Surgery/Procedure Date: 01/26/2024 Incision/Procedure Start Time: 7:54 AM Incision Close/Procedure End Time: 8:36 AM Surgeon(s)/Procedurali st(s) and Fiberglass Bonding Machine Tender(s): Surgeon(s) and Role: * Pam Wang MD [...] Implant Name Type Inv. Item Serial No. Hat Blocker Lot No. LRB No. Used Action LEAD INTRSTIM MRI 28CM - [id number] Lead LEAD INTRSTIM MRI 28CM [employer] [id number] Left 1 Implanted INTERSTIM X RECHARGE FREE NEUROSTIMULATOR - [id number] Stimulator INTERSTIM X RECHARGE FREE NEUROSTIMULATOR [id number] [employer] Left 1 Implanted Pre-Op/Pre-Procedure Diagnosis: urinary retention, urgency, frequency and nocturia Post-Op/Post-Procedure Diagnosis: same SIGNATURE: Sofiya Mullins MD DATE: January 26, 2024 PATIENT NAME: Mary Leal TIME: 8:42 AM PAGER/CONTACT #: Pager [phone] Normal [facility] HISTORY PHYSICALon HISTORY PHYSICAL HNO ID: [id number] Author: SOFIYA MULLINS MD Service: Urogynecology Author [...] VTE Prophylaxis/An (more content not included)... Normal [facility] NURSING PROGon 01-26-2024 NURSING PROG HNO ID: [id number] Author: DAI CAMPUZANO RN Service: Nursing Author Type: Registered Nurse Type: Nursing Progress Note Filed: 01/26/2024 09:51 Note Text: 0923 Paged PACU Resident [facility]30 [facility]- Could you please place an order for a one time dose of her homegoing oxy[place] prescription? [place] [phone] Paged PACU Resident [facility]- Could you please place an order for a one time dose of her homegoing oxycodone prescription? Dai GAMBINO [id number] Normal [facility] NURSING PROG HNO ID: [id number] Author: CATRACHO PIERRE RN Service: ? Author Type: Registered Nurse Type: Nursing Progress Note Filed: 01/26/2024 06:41 Note Text: Nursing Progress Note Topic of Note: Daily Note PATIENT NAME: Mary Leal Patient Location: Main - Periop OR/Main - Periop OR Room: Main - Periop OR ([id number]) PAGE SENT: Akiko Wang and Resident siphon operator-Pt in M23-37 Mary Leal will need informed consent and H AND P for surgery this morning. Thanks, Catracho [phone] This note was completed by: Catracho Pierre [facility] OPERATIVE NOon 01-26-2024 OPERATIVE NO HNO ID: [id number] Author: PAM WANG MD Service: Urogynecology Author Type: Physician Type: Operative Report Filed: 01/29/2024 10:50 Note Text: OPERATIVE/PROCEDURE REPORT LOG ID: [id number] Surgery/Procedure Date: 01/26/2024 Incision/Procedure Start Time: 7:54 AM Incision Close/Procedure End Time: 8:36 AM Surgeon(s)/Procedurali st(s) and Fiberglass Bonding Machine Tender(s): Surgeon(s) and Role: * Pam Wang MD [...] Implant Name Type Inv. Item Serial No. Hat Blocker Lot No. LRB No. Used Action LEAD INTRSTIM MRI 28CM - [id number] Lead LEAD INTRSTIM MRI 28CM [employer] [id number] Left 1 Implanted INTERSTIM X RECHARGE FREE NEUROSTIMULATOR - [id number] Stimulator INTERSTIM X RECHARGE FREE NEUROSTIMULATOR [id number] [employer] Left 1 Implanted Pre-Op/Pre-Procedure Diagnosis: [...] the S3 foramen until the marker was care home through the bone. The sacral lead [...] and impedances (more content not included)... Normal [facility] HISTORY PHYSICALon 4 HISTORY PHYSICAL HNO ID: [id number] Author: MAX MARROQUIN PA-C Service: ? Author Type: Physician Fiberglass Bonding Machine Tender Type: H&P Filed: 01/25/2024 09:25 Note Text: PREANESTHESIA CONSULT CLINIC TELEHEALTH VISIT SERVICE DATE: 01/25/2024 SERVICE TIME: 9:02 AM Patient has been identified by name and date of : Yes Reason for contact: PACC visit Accompanied by: Self This is a virtual visit using [employer] Video Visit. It required patient-provider interaction for the medical decision making as documented below. I have communicated my name and active licensure. The patient's identity and physical location were verified at the time of this visit. Either the patient or their legal nutrition representative has been informed of the risks [...] using inspire to get activated 02/07/2024 ) [id number] Score: Age: <65 Sex: female CHF history: No Hypertension history: Yes Stroke/TIA/thromboembo lism history: No Vascular disease history: No Diabetes history: No [id number] Score: 2 ANESTHESIA FINDINGS: Intubation History: No [...] PAST SURGICAL HIST (more content not included)... [facility] 12-25-2023 CNPN Telephone (GYNMN) MARY LEAL ([id number]) 1970 F Date Time Provider Department 12/25/23 PAM WANG GYNSOFIE During your visit today, we recorded the following information about you: [facility] 12/25/2023 2:54 PM Signed Reason for call: [...] distance health visit in this department: 10/25/2021 Organizational Effectiveness Director, Nurse Next visit in this department: 01/25/2024 [...] - Fully Assessed Reason for Visit: Question [6438] Prescriptions as of 12/25/2023 - ARIPiprazole monohydrate [...] Status:Closed by STACIE GONZALEZ on 12/25/23 Normal [facility] Basic Metabolic Panelon 12-07 Anion gap [Moles/Vol] 6 mmol/L 5 - 15 mmol/L [facility] Calcium [Mass/Vol] 9.3 mg/dL 8.5 - 10. 5 mg/dL [facility] Chloride [Moles/Vol] 105 mmol/L 98 - 10 9 mmol/L [facility] CO2 [Moles/Vol] 28 mmol/L 22 - 32 mmol/L [facility] Creatinine [Mass/Vol] 0.60 mg/dL 0.40 - 1.00 mg/dL [facility] Comment on above: METHOD TRACEABLE TO IDIA STANDARD eGFR (CKD-EPI)non-race dependent - PINF [facility] Comment on above: Reported eGFR is based on the CKD-EPI 2020 equation that does not use a race coefficient. Glucose [Mass/Vol] 85 mg/dL 65 - 99 mg/dL [facility] Potassium [Moles/Vol] 4.2 mmol/L 3.5 - 5.0 mmol/L [facility] Sodium [Moles/Vol] 139 mmol/L 134 - 146 mmol/L [facility] Urea nitrogen [Mass/Vol] 14 mg/dL 5 - 23 mg/dL [facility] CNPNon 11-27-2023 CNPN Telephone (WCTRMN) MARY LEAL ([id number]) 1970 F Date Time Provider Department 11/27/23 PAM WANG WCTRMN During your visit today, we recorded the following information about you: Amber Trimble 11/27/2023 9:32 AM Signed Patient: Mary Leal : 1970 Provider: Pam Wang MD Caller Phone #: [phone] (home) [phone] (cell) Reason for call: boyfriend pulled out [...] PNE stimulator stopped connecting so Kim of [employer] said to remove it. She removed [...] urge [N39.41] Order(s):SURGICAL REQUEST - ELECTIVE (06/2020) [[id number]] Order #: [id number]: 1 Prescriptions as of 11/27/2023 - ARIPiprazole [...] Encounter Status:Closed by PAM WANG on 11/27/23 [facility] Hussain 11-25-2023 CNPN Telephone (GYNMN) MARY LEAL ([id number]) 1970 F Date Time Provider Department 11/25/23 RADHA DUNHAM GYNMN During your visit today, we recorded the following information about you: Radha Dunham MD 11/25/2023 2:43 PM Signed Pony Roll Finisher Resident Telephone Encounter 11/25/2023 2:40 PM Call [...] adequately. Discussed with Dr. Mullins, Urogyn fellow front office assistant. Radha Dunham MD Obstetrics and Gynecology, PGY1 Allergies As of Date: 11/25/2023 Noted Allergy Reaction RISPERIDONE 07/27/2021 5 - Intolerance Comments: Breast discharge POISON BRENDA EXTRACT 04/06/2023 2 - Rash Date Reviewed: 10/10/2023 Reviewed by: José Luis Thorpe RN - Fully Assessed Reason for Visit: Patient Question [8657] Prescriptions as of 11/25/2023 - ARIPiprazole monohydrate [...] Encounter Status:Closed by RADHA DUNHAM on 11/25/23 [facility] CNOVon 11-21-2023 CNOV Office Visit (GUMAIN ) MARY LEAL ([id number]) 1970 F Date Time Provider Department 11/21/23 [...] Voiding dysfunction [N39.8] Order(s):UA DIP, URINE (POC) [[id number]] Order #: [id number]. #:[id number] [] ondansetron orally disintegrating 4 mg tab(s) [...] (more content not included)... Normal [facility] CNOVon 10-10-2023 CNOV Office Visit (SHERON ) MARY LEAL ([id number]) 1970 F Date Time Provider Department 10/10/23 [...] PFSH obtained by others. Pam Wang MD Presiding Steward offered: Patient declines. OBJECTIVE: BP 102/60 General: [...] would like to move forward with PNE. [employer] packet given to patient today to review. [...] which included preparing to see the patient, [id number] patient care, completing clinical (more content not included)... Normal [facility] CNPNon 09-12-2023 CNPN Telephone (WHQ) MARY LEAL ([id number]) 1970 F Date Time Provider Department 09/12/23 PAM WANG [facility] During your visit today, we [...] VV 08/07/[address] Wang: Impression: Mary Keys Elvis is a 53 year old female s/p [...] which included preparing to see the patient, supo-ca-lqxt patient care, completing clinical documentation, obtaining and/or [...] Office will call to schedule cystoscopy. Urogynecology [facility] Main provided: Pam Wang Staff Physician, [...] Diagnosis:History of suburethral sling procedure [Z98.890] Order(s):CYSTOSCOPY [facility] [[id number]] Order #: [id number] Prescriptions as of 09/12/2023 - atenolol (TENORMIN) [...] (more content not included)... Normal [facility] CNOVon 09-11-2023 CNOV Office Visit (UROSMN ) MARY LEAL ([id number]) 1970 F Date Time Provider Department 09/11/23 11:00 AM JAIRON LAI UROSMOsman During your visit today, we recorded the [...] Barry RN 09/11/2023 11:37 AM Signed [facility] URODYNAMIC [...] allergy: No Females- Is patient : No Presiding Steward offered:Patient declines B/O UA: YES DIP: UROFLOWMETRY [...] Lai MD 09/11/2023 1:18 PM Signed [facility] [...] Jairon Lai MD Referring Provider: PAM WANG [[id number]] Allergies As of Date: 09/11/2023 Noted Allergy [...] (more content not included)... Normal [facility] BASIC METABOLIC PANELon 10-0 Anion gap [Moles/Vol] 1 mmol/L Low 8-12 [facility] Comment on above: Performed By: #### 4 [id number], [id number], [id number], [id number] #### [address] [place], [place] [address] Calcium [Mass/Vol] 9.2 mg/dL Normal 8.4-10.4 [facility] Comment on above: Performed By: #### 4 [id number], [id number], [id number], [id number] #### [address] [place] [address] Chloride [Moles/Vol] 105 mmol/L Normal 96-109 [facility] Comment on above: Performed By: #### 4 [id number], [id number], [id number], [id number] #### [address] [place], [place] [address] CO2 [Moles/Vol] 32 mmol/L High 22-30 [facility] Comment on above: Performed By: #### 4 [id number], [id number], [id number], [id number] #### [address] [place], [place] [address] Creatinine [Mass/Vol] 0.67 mg/dL Normal 0.52-1.04 [facility] Comment on above: Performed By: #### 4 [id number], [id number], [id number], [id number] #### [address] [place], [place] [address] GLOMERULAR FILTRATION RATE ML/MIN/1.73 SQ M.PREDICTED >90.0 Normal >=60.0 [facility] Comment on above: Result Comment: [...] Kidney Int Suppl.2013;3:1-150 Performed By: #### 4 [id number], [id number], [id number], [id number] #### [address] [place], [place] [address] Glucose [Mass/Vol] 104 mg/dL High 65-100 [facility] Comment on above: Performed By: #### 4 [id number], [id number], [id number], [id number] #### [address] [place], [place] [address] Potassium [Moles/Vol] 4.6 mmol/L Normal 3.6-5.1 [facility] Comment on above: Performed By: #### 4 [id number], [id number], [id number], [id number] #### [address] [place], [place] [address] Sodium [Moles/Vol] 138 mmol/L Normal 135-147 [facility] Comment on above: Performed By: #### 4 [id number], [id number], [id number], [id number] #### [address] [place] [address] [facility] Urea nitrogen [Mass/Vol] 16 mg/dL Normal 8-26 [facility] Comment on above: Performed By: #### 4 [id number], [id number], [id number], [id number] #### [address] [place] [address] [facility] Basic metabolic panel aka em 08-12-2023 Anion gap [Moles/Vol] 1 mmol/L Low 8 - 12 mmol/L [facility] Calcium [Mass/Vol] 9.2 mg/dL 8.4 - 10. 4 mg/dL [facility] Calcium hydrogen phosphate dihydrate crystals LM Ql (Urine sed) 16 mg/dL 8 - 26 mg/dL [facility] Chloride [Moles/Vol] 105 mmol/L 96 - 10 9 mmol/L [facility] CO2 (BldMV) [Moles/Vol] 32 mmol/L High 22 - 30 mmol/L [facility] Creatinine [Mass/Vol] 0.67 mg/dL 0.52 - 1.04 mg/dL [facility] GFR/1.73 sq M.predicted MDRD (S/P/Bld) [Vol rate/Area] - PINF [facility] Comment on above: eGFR calculation [...] High 65 - 100 mg/dL [facility] Interpretation and review of laboratory results Abnormal [facility] Potassium [Moles/Vol] 4.6 mmol/L 3.6 - 5.1 mmol/L [facility] Sodium [Moles/Vol] 138 mmol/L 135 - 147 mmol/L [facility] CBC AND DIFFERENTIALon 08-12 ABSOLUTE BASOPHIL 0.0 x10*3/uL [facility]0-0.1 [facility] Comment on above: Performed By: #### 4 [id number] #### [address] ABSOLUTE EOSINOPHIL 0.1 x10*3/uL Normal 0.1-0.3 [facility] Comment on above: Performed By: #### 4 [id number] #### [address] ABSOLUTE IMMATURE GRANULOCYTES 0.0 x10*3/uL Normal 0.0-0.1 [facility] Comment on above: Performed By: #### 4 [id number] #### [address] ABSOLUTE LYMPH 1.6 x10*3/uL Normal 1.2-3.3 [facility] Comment on above: Performed By: #### 4 [id number] #### [address] ABSOLUTE MONO 0.3 x10*3/uL Normal 0.2-0.6 [facility] Comment on above: Performed By: #### 4 [id number] #### [address] ABSOLUTE NEUTROPHIL 3.1 x10*3/uL Normal 2.4-6.6 [facility] Comment on above: Performed By: #### 4 [id number] #### [address] Basophils/100 WBC (Bld) 0.8 % Normal [facility] Comment on above: Performed By: #### 4 [id number] #### [address] Eosinophils/100 WBC (Bld) 2.7 % Normal [facility] Comment on above: Performed By: #### 4 [id number] #### [address] Erythrocyte distribution width (RBC) [Ratio] 13.0 % Normal 11.5-14.5 [facility] Comment on above: Performed By: #### 4 [id number] #### [address] Hematocrit (Bld) [Volume fraction] 37.5 % Normal 33.6-46.8 [facility] Comment on above: Performed By: #### 4 [id number] #### [address] Hemoglobin (Bld) [Mass/Vol] 11.8 g/dL Normal 11.7-15.8 [facility] Comment on above: Performed By: #### 4 [id number] #### [address] Immature granulocytes/100 WBC (Bld) 0.4 % Normal [facility] Comment on above: Performed By: #### 4 [id number] #### [address] Lymphocytes/100 WBC (Bld) 31.5 % Normal [facility] Comment on above: Performed By: #### 4 [id number] #### [address] MCH (RBC) [Entitic mass] 26.5 pg Low 27.5-32.3 [facility] Comment on above: Performed By: #### 4 [id number] #### [address] MCHC (RBC) [Mass/Vol] 31.5 g/dL Normal 30.7-35.5 [facility] Comment on above: Performed By: #### 4 [id number] #### [address] MCV (RBC) [Entitic vol] 84.3 fL Normal 80.2-99 [facility] Comment on above: Performed By: #### 4 [id number] #### [address] Monocytes/100 WBC (Bld) 5.4 % Normal [facility] Comment on above: Performed By: #### 4 [id number] #### [address] Neutrophils/100 WBC (Bld) 59.2 % Normal [facility] Comment on above: Performed By: #### 4 [id number] #### [address] NUCLEATED RED BLOOD CELLS AUTO 0.0 % Normal 0.0-1.0 [facility] Comment on above: Performed By: #### 4 [id number] #### [address] PLATELET COUNT 299 x10*3/uL Normal 150-400 [facility] Comment on above: Performed By: #### 4 [id number] #### [address] RED BLOOD CELL COUNT 4.45 x10*6/uL Normal 3.60-5.20 [facility] Comment on above: Performed By: #### 4 [id number] #### [address] WHITE BLOOD CELLS 5.2 x10*3/uL [facility] 4[facility]3-10.3 [facility] Comment on above: Performed By: #### 4 [id number] #### [address] CBC with differentialOrdered By: Background Lab on 08-12-2023 Absolute Immature Granulocytes 0.0 [facility] Age [Time] 84.3 fL 80.2 - 99 fL [facility] Age [Time] 26.5 pg Low 27.5 - 32.3 pg [facility] Age [Time] 31.5 g/dL 30.7 - 35.5 g/dL [facility] B. burgdorferi IgM IB Ql (CSF) 31.5 % [facility] Basophils (Bld) [#/Vol] 0.0 10*3/uL [facility] Basophils/100 WBC (Body fld) 0.8 % [facility] Eosinophils (Bld) [#/Vol] 1.6 10*3/uL [facility] Eosinophils (Bld) [#/Vol] 0.3 10*3/uL [facility] Eosinophils (Bld) [#/Vol] 0.1 10*3/uL [facility] Eosinophils/100 WBC (Bld) 2.7 % [facility] Erythrocyte distribution width (RBC) [Ratio] 13.0 % 11.5 - 14.5 % [facility] Hematocrit (Bld) [Volume fraction] 37.5 % 33.6 - 46.8 % [facility] Hexanoylglycine (U) [Moles/Vol] 11.8 g/dL 11.7 - 15.8 g/dL [facility] Immature granulocytes/100 WBC (Bld) 0.4 % [facility] Interpretation and review of laboratory results Abnormal [facility] Monocytes/100 WBC (Bld) 5.4 % [facility] Neurotensin (P) [Mass/Vol] 59.2 % [facility] Neutrophils (Bld) [#/Vol] 3.1 10*3/uL [facility] Nucleated RBC/100 WBC (Bld) [Ratio] 0.0 % 0.0 - 1.0 % [facility] Platelets (Bld) [#/Vol] 299 10*3/uL [facility] RBC (Bld) [#/Vol] 4.45 10*6/uL [facility] [employer] [facility] WBC (Bld) [#/Vol] 5.2 10*3/uL [facility] CT ABDOMEN PELVIS WITH IV [...] 20 RAC Omni 300 100 ml Normal [facility] HEPATIC FUNCTION PANELon Albumin [Mass/Vol] 4.0 g/dL Normal 3.5-5.0 [facility] Comment on above: Performed By: #### 4 [id number], [id number], [id number], [id number] #### [address] ALK PHOS 104 U/L Normal 24-126 [facility] Comment on above: Performed By: #### 4 [id number], [id number], [id number], [id number] #### [address] [place] [address] [place] ALT [Catalytic activity/Vol] 50 U/L High 4-35 [facility] Comment on above: Performed By: #### 4 [id number], [id number], [id number], [id number] #### [address] [place] [address] [place] AST [Catalytic activity/Vol] 59 U/L High 3-47 [facility] Comment on above: Performed By: #### 4 [id number], [id number], [id number], [id number] #### [address] [address] [facility] Bilirubin [Mass/Vol] 0.1 mg/dL Low 0.2-1.6 [facility] Comment on above: Performed By: #### 4 [id number], [id number], [id number], [id number] #### [address] Bilirubin.indirect [Mass/Vol] 0.1 mg/dL Normal <=0.5 [facility] Comment on above: Performed By: #### 4 [id number], [id number], [id number], [id number] #### [address] Protein [Mass/Vol] 6.6 g/dL Normal 6.3-8.2 [facility] Comment on above: Performed By: #### 4 [id number], [id number], [id number], [id number] #### [address] Hepatic Function Panelon Albumin (Syn fld) [Mass/Vol] 4.0 g/dL 3.5 - 5.0 g/dL [facility] Aldosterone (U) [Mass/Vol] 104 U/L 24 - 126 U/L [facility] ALT [Catalytic activity/Vol] 50 U/L High 4 - 35 U/L [facility] AST [Catalytic activity/Vol] 59 U/L High 3 - 47 U/L [facility] Bilirubin [Mass/Vol] 0.1 mg/dL Low 0.2 - 1 .6 mg/dL [facility] Bilirubin.conjugated [Mass/Vol] 0.1 mg/dL NINF - 0.5 mg/dL [facility] Protein [Mass/Vol] 6.6 g/dL 6.3 - 8.2 g/dL [facility] LIPASEon 08-12-2023 Lipase [Catalytic activity/Vol] 11 U/L Low 23-300 [facility] Comment on above: Performed By: #### 4 [id number], [id number], [id number], [id number] #### [address] Lipaseon 08-12-2023 Lipase [Catalytic activity/Vol] 11 U/L Low 23 - 300 U/L [facility] No Panel Informationon 08-12 Extra Tube Hold for add-ons. [facility] Interpretation and review of laboratory results Abnormal [facility] POCT ED/FC/GSC Urine PregOrd ered By: Della Hays on 08-12-2023 Beta HCG ( test) Ql (U) Negative [facility] Interpretation and review of laboratory results Normal [facility] Sew Out Operator Acceptable yes [facility] TROPONIN Ion 08-12-2023 Troponin I.cardiac [Mass/Vol] ng/mL Normal <=0.033 [facility] Comment on above: Result Comment: Nega tive: No detectable troponin-I. Performed By: #### 4 [id number] #### [address] TROPONIN I SERIESon 08-12-20 Troponin I.cardiac [Mass/Vol] ng/mL Normal <=0.033 [facility] Comment on above: Result Comment: Nega tive: No detectable troponin-I. Performed By: #### 4 [id number], [id number], [id number], [id number] #### [address] Troponin I (One time)on Interpretation and review of laboratory results Normal [facility] Troponin I.cardiac [Mass/Vol] ng/mL NINF - 0.033 ng/mL [facility] Comment on above: Negative: No detectable troponin-I. [facility] Troponin I - Series (X 3)on 08-12-2023 Interpretation and review of laboratory results Normal [facility] Troponin I.cardiac [Mass/Vol] ng/mL NINF - 0.033 ng/mL [facility] Comment on above: Negative: No detectable troponin-I. [facility] URINALYSIS WITH REFLEX CULTU REon 08-12-2023 Appearance (U) Clear Normal [facility] Comment on above: Performed By: #### 4 [id number] #### [address] [place] [address] [place] BILIRUBIN UA Negative Normal Negative [facility] Comment on above: Performed By: #### 4 [id number] #### [address] [place], [place] [address] Color (U) Yellow Normal [facility] Comment on above: Performed By: #### 4 [id number] #### [address] Glucose Ql (U) Negative Normal Negative [facility] Comment on above: Performed By: #### 4 [id number] #### [address] Ketones Ql (U) Negative Normal Negative [facility] Comment on above: Performed By: #### 4 [id number] #### [address] LEUKOESTERASE Negative Normal Negative [facility] Comment on above: Performed By: #### 4 [id number] #### [address] MUCOUS-URINE Occasional Normal [facility] Comment on above: Performed By: #### 4 [id number] #### [address] Nitrite Ql (U) Negative Normal Negative [facility] Comment on above: Performed By: #### 4 [id number] #### [address] OCCULT BLD Negative Normal [facility] Comment on above: Performed By: #### 4 [id number] #### [address] PH, URINE 5.0 [facility] Comment on above: Performed By: #### 4 [id number] #### [address] Protein Ql (U) Negative Normal Negative [facility] Comment on above: Performed By: #### 4 [id number] #### [address] RBC LM.HPF (Urine sed) [#/Area] /[HPF] Normal <=5 [facility] Comment on above: Performed By: #### 4 [id number] #### [address] SPECIFIC GRAVITY, URINE 1.025 [facility] Comment on above: Performed By: #### 4 [id number] #### [address] SQUAMOUS EPI CELLS 51 /LPF [facility] Comment on above: Performed By: #### 4 [id number] #### [place] [address] [place] UROBILINOGEN UA Negative Normal <2.0 [facility] Comment on above: Performed By: #### 4 [id number] #### [place] [address] WBC LM.HPF (Urine sed) [#/Area] 2 /[HPF] Normal <=5 [facility] Comment on above: Performed By: #### 4 [id number] #### [place] [address] Urinalysis complete W Reflex Culture panel (U)on 08-12-2023 Acetone [Mass/Vol] Negative Negative [facility] [employer] [facility] Appearance (Body fld) Clear [facility] Bilirubin Ql (U) Negative Negative [place] [facility] Color (Stone) Yellow [facility] G6PD (RBC) [Catalytic activity/Vol] Negative Negative [place] [facility] Hemoglobin Ql (U) [facility] Leukocyte esterase Test strip Ql (U) Negative Negative [facility] Mucor racemosus IgE Qn (S) Occasional /LPF [facility] Nitrite Test strip (U) [Mass/Vol] Negative Negative [facility] pH (Migue fld) 5.0 [facility] Protein (U) [Mass/Vol] Negative Negative [facility] [place] IgE Qn (S) Negative Negative [facility] Specific gravity (U) [Rel density] 1.025 [facility] Spherocytes LM Ql (Bld) 51 /LPF [facility] Urobilinogen Qn (U) Negative [facility] - 2.0 [facility] WBC (U) [#/Vol] 2 /uL [facility] CNOVon 07-31-2023 CNOV Office Visit (SHERON ) MARY LEAL ([id number]) 1970 F Date Time Provider Department 07/31/23 [...] new Pain: no Abnormal Vaginal Discharge: no [employer] WORK[employer] 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 She has no history of an abnormal mammogram with cysts on US LMP: No LMP recorded. Patient has had a hysterectomy.; Menopause 3 years ago; hysterectomy in 2015: Menstrual history: NA; Deliveries: I have confirmed and edited as necessary, the PFSH obtained by others. Nelsy Chávez APRN.MAINTENANCE JOB TITLES Presiding Steward offered: Patient declines. OBJECTIVE: There were no [...] which included preparing to see the patient, [id number] patient care, completing clinical documentation, performing a [...] [R35.0] Nocturia [R35.1] Order(s):UA DIP, URINE (POC) [7676273] Order #: [id number]. #:[id number] URODYNAMICS I [[id number]] Order #: [id number] Prescriptions as of 07/31/2023 - atenolol (TENORMIN) [...] (more content not included)... Normal [facility] UA DIP, URINE (POC)on 2022 BILIRUBIN UA (POCT) Negative Negative [facility] CLARITY UA (POCT) Clear [facility] COLOR UA (POCT) Yellow [facility] GLUCOSE UA (POCT) Negative Negative mg/dL [facility] Hemoglobin Ql (U) Negative [facility] KETONE UA (POCT) Negative Negative mg/dL [facility] LEUKOCYTES UA (POCT) Negative Negative [facility] NITRITE UA (POCT) Negative Negative [facility] PH UA (POCT) 5.0 4.5 - 8.0 [facility] Protein Ql (U) Negative Negative mg/dL [facility] SPECIFIC GRAVITY UA (POCT) 1.010 1.005 - 1.030 [facility] UROBILINOGEN UA (POCT) 0.2 E.U./dL Normal E.U./dL [facility] Office Visit (Cardiology)on 06-13-2023 Follow-up visit Diagnoses/Problems Assessed Chest pain (786.50) (R07.9) Elevated troponin (790.6) (R77.8) Fatigue (780.79) (R53.83) Never a smoker Overweight with body mass index (BMI) of 27 to 27.9 in adult (278.02,V85.23) (E66.3,Z68.27) Orders Elevated troponin IO EKG Electrocardiogram- 12 Lead; Status:Active - Perform Order,Retrospective Authorization; Requested for:13Jun2023; Overweight with body mass index (BMI) of 27 to 27.9 in adult Healthy Weight Tips; Status:Complete - Retrospective Authorization; Done: [id number] Some eating tips that can help you lose weight.; Status:Complete - Retrospective Authorization; Done: [id number] SocHx: Never a smoker Tobacco Use Screening; Status:Complete; Done: [id number] Patient Instructions Please bring all medicines, vitamins, [...] dizziness, diaphoresis with recent work-up that [facility] emergency room. Reportedly her troponins are elevated [...] are currently being investigated at [facility] (now her fourth GI specialist). Last year while in [place] she had similar issues with elevated troponins in the ED and underwent heart catheterization that did not reveal any specific significant disease, details of the discharge summary are reviewed She underwent recent stress perfusion imaging at [facility], the report is reviewed, she has no [...] will investigate the troponin rise at [facility] however I believe this is likely a non-NE troponin elevation, likely associated with underlying inflammatory [...] negative for complaint. Vitals Vital Signs Recorded: [id number] 10:37AM Heart Rate70, Apical Zhucbzcs146, RUE, Sitting Afxrpgfdf42, RUE, Sitting Height5 ft 4 in Lacggk441 lb BMI Jrpvrqibdc68.46 kg/m2 BSA Calculated1.78 Tobacco Useb) No PHQ-2 [...] #1. Lit (more content not included)... Normal [facility] Tobacco Screening.on 023 Adult depression screening assessment No [facility] [employer] [facility] [address] DO Work Phone: Adult depression screening assessment Yes [facility] [address] DO Work Phone: Adult depression screening assessment Moderate (10-14) [facility]ather [facility] [address] DO Work Phone: Fall risk assessment a) No falls within the last year [facility] [address] DO Work Phone: Tobacco use status CP b) No [facility] [address] DO Work Phone: Tobacco Screening. 1-Several days [facility] [address] DO Work Phone: Tobacco Screening. 3-Nearly every day [facility] [address] DO Work Phone: Tobacco Screening. 0-Not at all [facility] [address] DO Work Phone: Tobacco Screening. Somewhat Difficult [facility] [address] DO Work Phone: Activated partial thrombopla stin time (aPTT) in platelet poor plasma by coagulation aOrdered By: Anibal Valle on 06-05-2023 aPTT Coag (PPP) [Time] 28.0 s 25.1-36.5 [facility] Basophils Auto (Bld) [#/Vol] Ordered By: Anibal Valle on 06-05-2023 Basophils (Bld) [#/Vol] 0.0 10*3/uL 0.0-0.2 [facility] Basophils/100 WBC Auto (Bld) Ordered By: Anibal Valle on 06-05-2023 Basophils/100 WBC (Bld) 0.4 % . [facility] Calcium [Mass/volume] in Ser um or PlasmaOrdered By: Anibal Valle on 06-05-2023 Calcium [Mass/Vol] 9.0 mg/dL 8.6-10.3 [facility] Carbon dioxide, total [Moles /volume] in Serum or PlasmaOrdered By: Anibal Valle on 06-05-2023 CO2 [Moles/Vol] 23.2 mmol/L 21.0-31.0 [facility] Chloride [Moles/volume] in S jay or PlasmaOrdered By: Anibal Valle on 06-05-2023 Chloride [Moles/Vol] 108 mmol/L 98-107 [facility] Creatinine [Mass/volume] in Serum or PlasmaOrdered By: Anibal Valle on 06-05-2023 Creatinine [Mass/Vol] 0.67 mg/dL 0.60-1.[address] [facility] Eosinophils Auto (Bld) [#/Vo l]Ordered By: Anibal Valle on 06-05-2023 Eosinophils (Bld) [#/Vol] 0.1 10*3/uL 0.0-0.45 [facility] Eosinophils/100 WBC Auto (Bl d)Ordered By: Anibal Valle on 06-05-2023 Eosinophils/100 WBC (Bld) 1.9 % . [facility] Erythrocyte distribution wid th Auto (RBC) [Ratio]Ordered By: Anibal Valle on 06-05-2023 Erythrocyte distribution width (RBC) [Ratio] 13.9 % 11.9-15.3 [facility] Glucose [Mass/volume] in Ser um or PlasmaOrdered By: Anibal Valle on 06-05-2023 Glucose [Mass/Vol] 106 mg/dL 70-100 [facility] Comment on above: ADA recommended refe rence rangeRandom Glucose Reference Range is dependent on time and content of last meal. Glucose of more than 200 mg/dL in a nonstressed, ambulatory subject supports the diagnosis of Diabetes Mellitus. Hematocrit Auto (Bld) [Volum e fraction]Ordered By: Anibal Valle on 06-05-2023 Hematocrit (Bld) [Volume fraction] 34.4 % 34.0-46.4 [facility] Hemoglobin [Mass/volume] in BloodOrdered By: Anibal Valle on 06-05-2023 Hemoglobin (Bld) [Mass/Vol] 11.9 g/dL 11.8-15.4 [facility] Laboratory - CoagulationOrde red By: Anibal Valle on 06-05-2023 PT Coag (PPP) [Time] 12.0 s 9.0-12.9 [facility] Leukocytes [#/volume] correc herbert for nucleated erythrocytes in Blood by Automated counOrdered By: Anibal Valle on 06-05-2023 WBC corrected for nucl RBC Auto (Bld) [#/Vol] 4.4 10*3/uL 3.8-11.6 [facility] Lymphocytes Auto (Bld) [#/Vo l]Ordered By: Anibal Valle on 06-05-2023 Lymphocytes (Bld) [#/Vol] 1.8 10*3/uL 1.00-4.8 [facility] Lymphocytes/100 WBC Auto (Bl d)Ordered By: Anibal Valle on 06-05-2023 Lymphocytes/100 WBC (Bld) 41.0 % . [facility] MCH Auto (RBC) [Entitic mass ]Ordered By: Anibal Valle on 06-05-2023 MCH (RBC) [Entitic mass] 27.7 pg 24.7-34.3 [facility] MCHC Auto (RBC) [Mass/Vol]Or dered By: Anibal Valle on 06-05-2023 MCHC (RBC) [Mass/Vol] 34.5 g/dL 32.0-35.[address] [facility] MCV Auto (RBC) [Entitic vol] Ordered By: Anibal Valle on 06-05-2023 MCV (RBC) [Entitic vol] 80.2 fL 80-100 [facility] Monocyte distribution width [Entitic volume] in Blood by AutomatedOrdered By: Anibal Valle on 06-05-2023 Monocyte distribution width Auto (Bld) [Entitic vol] 24.18 % 0.00-20.00 [facility] Comment on above: For adults in ED, MD W > 20.0 may be associated with a higher risk of sepsis during the first 12 hrs of hospital admission Monocytes Auto (Bld) [#/Vol] Ordered By: Anibal Valle on 06-05-2023 Monocytes (Bld) [#/Vol] 0.3 10*3/uL 0.0-0.8 [facility] Monocytes/100 WBC Auto (Bld) Ordered By: Anibal Valle on 06-05-2023 Monocytes/100 WBC (Bld) 7.5 % . [facility] Natriuretic peptide B [Mass/ Vol]Ordered By: Anibal Valle on 06-05-2023 Natriuretic peptide B (Bld) [Mass/Vol] 39.0 pg/mL 5-100 [facility] Neutrophils Auto (Bld) [#/Vo l]Ordered By: Anibal Valle on 06-05-2023 Neutrophils (Bld) [#/Vol] 2.2 10*3/uL 1.8-7.7 [facility] Neutrophils/100 WBC Auto (Bl d)Ordered By: Anibal Valle on 06-05-2023 Neutrophils/100 WBC (Bld) 49.2 % . [facility] No Panel InformationOrdered By: Anibal Valle on 06-05-2023 Estimated GFR (CKD-EPI) > 60.0 mL/Min [facility] Creatinine Clearance (Chem 97.82 [facility] Nucleated erythrocytes [Pres ence] in Blood by Automated countOrdered By: Anibal Valle on 06-05-2023 Nucleated RBC Auto Ql (Bld) 0.1 /100{WBC} 0-0.5 [facility] Platelet mean volume Auto (B ld) [Entitic vol]Ordered By: Anibal Valle on 06-05-2023 Platelet mean volume (Bld) [Entitic vol] 7.4 fL 6.3-10.7 [facility] Platelet poor plasma interna tional normalized ratio (INR) by coagulation assay (relatOrdered By: Anibal Valle on 06-05-2023 INR Coag (PPP) [Relative time] 1.0 {INR} [facility] Comment on above: INR Therapeutic Rang [...] 06-05-2023 Platelets (Bld) [#/Vol] 336 10*3/uL 150-450 [facility] Potassium [Moles/volume] in Serum or PlasmaOrdered By: Anibal Valle on 06-05-2023 Potassium [Moles/Vol] 3.8 mmol/L 3.5-5.[address] [facility] RBC Auto (Bld) [#/Vol]Ordere d By: Anibal Valle on 06-05-2023 RBC (Bld) [#/Vol] 4.29 10*6/uL 3.60-5.00 [facility] Serum or plasma anion gap de terminationOrdered By: Anibal Valle on 06-05-2023 Anion gap [Moles/Vol] 10.6 mmol/L 6.0-15.0 [facility] Sodium [Moles/volume] in Ser um or PlasmaOrdered By: Anibal Valle on 06-05-2023 Sodium [Moles/Vol] 138 mmol/L 136-145 [facility] Troponin I.cardiac [Mass/vol ume] in Serum or Plasma by Detection limit <= 0.01 ng/Ordered By: Anibal Valle on 06-05-2023 Troponin I.cardiac DL <= 0.01 ng/mL [Mass/Vol] 2.6 pg/mL 0.0-15.0 [facility] Urea nitrogen [Mass/volume] in Serum or PlasmaOrdered By: Anibal Valle on 06-05-2023 Urea nitrogen [Mass/Vol] 10 mg/dL 7-25 [facility] WBC Auto (Bld) [#/Vol]Ordere d By: Anibal Valle on 06-05-2023 WBC (Bld) [#/Vol] 4.4 10*3/uL 3.8-11.6 [facility] CBC AUTO DIFFon 04-05-2023 BASO # 0.0 103/ul Normal 0.0-0.1 [facility] Comment on above: Performed By: #### L ACT #### [facility] [address] [place] [address] Dr. Mirian Velasco Basophils/100 WBC (Bld) 0.8 % Normal 0.2-2.0 [facility] Comment on above: Performed By: #### L ACT #### [facility] [address] [place] [address] Dr. Mirian Velasco EO # 0.1 103/ul Normal 0.0-0.7 [facility] Comment on above: Performed By: #### L ACT #### [facility] [address] [address] [address] Mirian Velasco Eosinophils/100 WBC (Bld) 1.1 % Normal 0.9-7.0 [facility] Comment on above: Performed By: #### L ACT #### [facility] [address] [place] [address] Dr. Mirian Velasco Erythrocyte distribution width (RBC) [Ratio] 13.1 % Normal 11.0-15.0 [facility] Comment on above: Performed By: #### L ACT #### [facility] [facility] [address] [place] [address] Dr. Mirian Velasco Hematocrit (Bld) [Volume fraction] 37.6 % Normal 36.0-48.0 [facility] Comment on above: Performed By: #### L ACT #### [facility] [address] [place] [address] Dr. Mirian Velasco Hemoglobin (Bld) [Mass/Vol] 12.4 g/dL Normal 12.0-16.0 [facility] Comment on above: Performed By: #### L ACT #### [facility] [address] [place] [address] Dr. Mirian Velasco IG # 0.01 10e3/ul Normal 0.00-0.03 [facility] Comment on above: Performed By: #### L ACT #### [facility] [address] [place] [address] Dr. Mirian Velasco IG % 0.2 % Normal 0.0-0.5 [facility] Comment on above: Performed By: #### L ACT #### [facility] [address] [place] [address] Dr. Mirian Velasco LYMPH # 2.5 103/ul Normal 1.2-3.8 [facility] Comment on above: Performed By: #### L ACT #### [facility] [address] [place] [address] Dr. Mirian Velasco Lymphocytes/100 WBC (Bld) 46.2 % Normal 20.5-60.0 [facility] Comment on above: Performed By: #### L ACT #### [facility] [address] [place] [address] Dr. Mirian Velasco MANUAL DIFF REQ NO Normal [facility] Comment on above: Performed By: #### L ACT #### [facility] [address] [address] [address] Mirian Velasco MCH (RBC) [Entitic mass] 27.1 pg Normal 26.7-34.0 [facility] Comment on above: Performed By: #### L ACT #### [facility] [address] [address] [address] Mirian Velasco MCHC (RBC) [Mass/Vol] 33.0 g/dL Normal 29.9-35.2 [facility] Comment on above: Performed By: #### L ACT #### [facility] [address] [place] [address] Dr. Mirian Velasco MCV (RBC) [Entitic vol] 82.3 fL Normal 81.0-99.0 [facility] Comment on above: Performed By: #### L ACT #### [facility] [address] [place] [address] Dr. Mirian Velasco MONO # 0.4 103/ul Normal 0.3-0.8 [facility] Comment on above: Performed By: #### L ACT #### [facility] [address] [place] [address] Dr. Mirian Velasco Monocytes/100 WBC (Bld) 7.9 % Normal 1.7-12.0 [facility] Comment on above: Performed By: #### L ACT #### [facility] [address] [place] [address] Dr. Mirian Velasco NEUT # 2.3 103/ul Normal 1.4-6.5 [facility] Comment on above: Performed By: #### L ACT #### [facility] [address] [place] [address] Dr. Mirian Velasco Neutrophils/100 WBC (Bld) 43.8 % Normal 43.0-75.0 [facility] Comment on above: Performed By: #### L ACT #### [facility] [address] [place] [address] Dr. Mirian Velasco Platelet mean volume (Bld) [Entitic vol] 9.2 fL Critically low 9.5-13.5 [facility] Comment on above: Performed By: #### L ACT #### [facility] [address] [address] [address] Mirian Velasco PLT 318 103/ul Normal 150-450 [facility] Comment on above: Performed By: #### L ACT #### [facility] [address] [address] [address] Mirian Velasco RBC 4.57 106/ul Normal 4.20-5.40 [facility] Comment on above: Performed By: #### L ACT #### [facility] [address] [address] [address] Mirian Velasco WBC 5.3 103/ul Normal 4.0-11.0 [facility] Comment on above: Performed By: #### L ACT #### [facility] [address] [address] [address] Mirian Velasco PROF CHEM 8 (BAS METB)on Anion gap [Moles/Vol] 19.0 mmol/L Normal [facility] Comment on above: Performed By: #### H STROPN, BMP ####[facility] [address] [address]DrReno Velasco Calcium [Mass/Vol] 9.6 mg/dL Normal 8.5-10.1 [facility] Comment on above: Performed By: #### H STROPN, BMP ####[facility] [address] [address]DrReno Velasco Chloride [Moles/Vol] 103 mmol/L Normal 98-107 [facility] Comment on above: Performed By: #### H STROPN, BMP ####[facility] [address] [id number] Velasco CO2 [Moles/Vol] 23.1 mmol/L Normal 21.0-32.0 [facility] Comment on above: Performed By: #### H STROPN, BMP ####[facility] [address] [address]DrReno Velasco Creatinine [Mass/Vol] 0.84 mg/dL Normal 0.55-1.02 [facility] Comment on above: Performed By: #### H STROPN, BMP ####[facility] [address] [address]Dr. Mirian Velasco EGFR-AF ERITREAN >60 Normal >=60 [facility] Comment on above: Performed By: #### H STROPN, BMP ####[facility] [address] [address]Dr. Mirian Velasco EGFR-NON AF ERITREAN >60 Normal >=60 [facility] Comment on above: Performed By: #### H STROPN, BMP ####[facility] [address] [address]Dr. Mercedesnatalie Sanjiv Glucose [Mass/Vol] 129 mg/dL Critically high 74-106 [facility] Comment on above: Performed By: #### H STROPN, BMP ####[facility] [address] [address]Dr. Mrecedesnatalie Velasco Potassium [Moles/Vol] 3.1 mmol/L Critically low 3.5-5.1 [facility] Comment on above: Performed By: #### H STROPN, BMP ####[facility] [id number] [place], [place] [address]Dr. Mercedesnatalie Sanjiv Sodium [Moles/Vol] 142 mmol/L Normal 136-145 [facility] Comment on above: Performed By: #### H STROPN, BMP ####[facility] [address] [place], [place] [address]Dr. Mercedesnatalie Velasco Urea nitrogen [Mass/Vol] 12.0 mg/dL Normal 7.0-18.0 [facility] Comment on above: Performed By: #### H STROPN, BMP ####[facility] [address] [place], [place] [address]Dr. Mirian Velasco Urea nitrogen/Creatinine [Mass ratio] 14.3 mg/mg Normal [facility] Comment on above: Performed By: #### H STROPN, BMP ####[facility] [address] [address]Dr. Mirian Velasco TROPONIN, HIGH SENSITIVITYon 04-05-2023 HSTROP 5.6 pg/mL Normal 4.0-51.3 [facility] Comment on above: Result Comment: CUT- OFF POINTS HAVE BEEN ESTABLISHED BASED ON THE FOURTH UNIVERSAL DEFINITIONS OF MYOCARDIAL INFARCTION. THE UPPER REFERENCE LIMIT (URL) OF TROPONIN, DEFINED THE 99TH PERCENTILE OF cTnI DISTRIBUTION IN A REFERENCE POPULATION, HAS BEEN CONFIRMED THE DECISION THRESHOLD FOR NE DIAGNOSIS. Performed By: #### H STROPN, BMP ####[facility] [address] [address]Dr. Mirian Velasco CBC AUTO DIFFon 03-06-2023 BASO # 0.1 103/ul Normal 0.0-0.1 [facility] Comment on above: Performed By: #### L ACT #### [facility] [address] [address] [address] Mirian Velasco Basophils/100 WBC (Bld) 0.8 % Normal 0.2-2.0 [facility] Comment on above: Performed By: #### L ACT #### [facility] [address] [address] [address] Mirian Velasco EO # 0.1 103/ul Normal 0.0-0.7 [facility] Comment on above: Performed By: #### L ACT #### [facility] [address] [address] [address] Mirian Velasco Eosinophils/100 WBC (Bld) 1.4 % Normal 0.9-7.0 [facility] Comment on above: Performed By: #### L ACT #### [facility] [address] [address] [address] Mirian Velasco Erythrocyte distribution width (RBC) [Ratio] 13.1 % Normal 11.0-15.0 [facility] Comment on above: Performed By: #### L ACT #### [facility] [address] [address] [address] Mirian Velasco Hematocrit (Bld) [Volume fraction] 37.9 % Normal 36.0-48.0 [facility] Comment on above: Performed By: #### L ACT #### [facility] [address] [place] [address] Dr. Mirian Velasco Hemoglobin (Bld) [Mass/Vol] 12.7 g/dL Normal 12.0-16.0 [facility] Comment on above: Performed By: #### L ACT #### [facility] [address] [place] [address] Dr. Mirian Velasco IG # 0.01 10e3/ul Normal 0.00-0.03 [facility] Comment on above: Performed By: #### L ACT #### [facility] [address] [place] [address] Dr. Mirian Velasco IG % 0.2 % Normal 0.0-0.5 [facility] Comment on above: Performed By: #### L ACT #### [facility] [address] [place] [address] Dr. Mirian Velasco LYMPH # 1.8 103/ul Normal 1.2-3.8 [facility] Comment on above: Performed By: #### L ACT #### [facility] [address] [place] [address] Dr. Mirian Velasco Lymphocytes/100 WBC (Bld) 27.2 % Normal 20.5-60.0 [facility] Comment on above: Performed By: #### L ACT #### [facility] [address] [place] [address] Dr. Mirian Velasco MANUAL DIFF REQ NO Normal [facility] Comment on above: Performed By: #### L ACT #### [facility] [address] [place] [address] Dr. Mirian Velasco MCH (RBC) [Entitic mass] 27.5 pg Normal 26.7-34.0 [facility] Comment on above: Performed By: #### L ACT #### [facility] [address] [place] [address] Dr. Mirian Velasco MCHC (RBC) [Mass/Vol] 33.5 g/dL Normal 29.9-35.2 [facility] Comment on above: Performed By: #### L ACT #### [facility] [address] [place] [address] Dr. Mirian Velasco MCV (RBC) [Entitic vol] 82.0 fL Normal 81.0-99.0 [facility] Comment on above: Performed By: #### L ACT #### [facility] [address] [place] [address] Dr. Mirian Velasco MONO # 0.4 103/ul Normal 0.3-0.8 [facility] Comment on above: Performed By: #### L ACT #### [facility] [address] [address] [address] Mirian Velasco Monocytes/100 WBC (Bld) 5.5 % Normal 1.7-12.0 [facility] Comment on above: Performed By: #### L ACT #### [facility] [address] [place] [address] Dr. Mirian Velasco NEUT # 4.3 103/ul Normal 1.4-6.5 [facility] Comment on above: Performed By: #### L ACT #### [facility] [address] [place] [address] Dr. Mirian Velasco Neutrophils/100 WBC (Bld) 64.9 % Normal 43.0-75.0 [facility] Comment on above: Performed By: #### L ACT #### [facility] [address] [place] [address] Dr. Mirian Velasco Platelet mean volume (Bld) [Entitic vol] 9.4 fL Critically low 9.5-13.5 [facility] Comment on above: Performed By: #### L ACT #### [facility] [address] [place] [address] Dr. Mirian Velasco PLT 317 103/ul Normal 150-450 [facility] Comment on above: Performed By: #### L ACT #### [facility] [address] [place] [address] Dr. Mirian Velasco RBC 4.62 106/ul Normal 4.20-5.40 [facility] Comment on above: Performed By: #### L ACT #### [facility] [address] [place] [address] Dr. Mirian Velasco WBC 6.6 103/ul Normal 4.0-11.0 [facility] Comment on above: Performed By: #### L ACT #### [facility] [address] [address] [address] Mirian Velasco CULTURE BLOODon 03-06-2023 Microscopic examination of blood, culture Culture Observations: NO GROWTH AT 5 DAYS. Normal [facility] Comment on above: Performed By: #### B LDCX2 ####[facility] [address] [id number]. Mirian Velasco Microscopic examination of blood, culture Culture Observations: NO GROWTH AT 5 DAYS. Normal [facility] Comment on above: Performed By: #### B LDCX1 #### [facility] [address] [address] [address] Mirian Velasco LACTATE/LACTIC ACIDon 2022 Lactate [Moles/Vol] 2.2 mmol/L Critically high 0.4-2.0 [facility] Comment on above: Performed By: #### L ACT #### [facility] [address] [address] [address] Mirian Velasco LIPASEon 03-06-2023 Lipase [Catalytic activity/Vol] 53.0 U/L Critically low 73.0-393.0 [facility] Comment on above: Performed By: #### L ACT #### [facility] [address] [address] [address] Mirian Velasco PROF 14(COMP METB)on 023 Albumin [Mass/Vol] 3.4 g/dL Normal 3.4-5.0 [facility] Comment on above: Performed By: #### L ACT #### [facility] [address] [address] [address] Mirian Velasco Albumin/Globulin [Mass ratio] 1.0 {ratio} Normal [facility] Comment on above: Performed By: #### L ACT #### [facility] [address] [address] [address] Mirian Velasco ALP [Catalytic activity/Vol] 123 U/L Critically high 46-116 [facility] Comment on above: Performed By: #### L ACT #### [facility] [address] [address] [address] Mirian Velasco ALT [Catalytic activity/Vol] 33 U/L Normal 14-59 [facility] Comment on above: Performed By: #### L ACT #### [facility] [address] [place] [address] Dr. Mirian Velasco Anion gap [Moles/Vol] 13.1 mmol/L Normal [facility] Comment on above: Performed By: #### L ACT #### [facility] [address] [address] [address] Mirian Velasco AST [Catalytic activity/Vol] 31 U/L Normal 15-37 [facility] Comment on above: Performed By: #### L ACT #### [facility] [address] [place] [address] Dr. Mirian Velasco Bilirubin [Mass/Vol] 0.3 mg/dL Normal 0.2-1.0 [facility] Comment on above: Performed By: #### L ACT #### [facility] [address] [place] [address] Dr. Mirian Velasco Calcium [Mass/Vol] 8.9 mg/dL Normal 8.5-10.1 [facility] Comment on above: Performed By: #### L ACT #### [facility] [address] [place] [address] Dr. Mirian Velasco Chloride [Moles/Vol] 107 mmol/L Normal 98-107 [facility] Comment on above: Performed By: #### L ACT #### [facility] [address] [place] [address] Dr. Mirian Velasco CO2 [Moles/Vol] 25.6 mmol/L Normal 21.0-32.0 [facility] Comment on above: Performed By: #### L ACT #### [facility] [address] [place] [address] Dr. Mirina Velasco Creatinine [Mass/Vol] 0.70 mg/dL Normal 0.55-1.02 [facility] Comment on above: Performed By: #### L ACT #### [facility] [address] [place] [address] Dr. Mirian Velasco EGFR-AF ERITREAN >60 Normal >=60 [facility] Comment on above: Performed By: #### L ACT #### [facility] [address] [address] [address] Mirian Velasco EGFR-NON AF ERITREAN >60 Normal >=60 [facility] Comment on above: Performed By: #### L ACT #### [facility] [address] [address] [address] Mirian Velasco Globulin (S) [Mass/Vol] 3.4 g/dL Normal [facility] Comment on above: Performed By: #### L ACT #### [facility] [address] [address] [address] Mirian Velasco Glucose [Mass/Vol] 125 mg/dL Critically high 74-106 [facility] Comment on above: Performed By: #### L ACT #### [facility] [address] [address] [address] Mirian Velasco Potassium [Moles/Vol] 3.7 mmol/L Normal 3.5-5.1 [facility] Comment on above: Performed By: #### L ACT #### [facility] [address] [address] [address] Mirian Velasco Protein [Mass/Vol] 6.8 g/dL Normal 6.4-8.2 [facility] Comment on above: Performed By: #### L ACT #### [facility] [address] [address] [address] Mirian Velasco Sodium [Moles/Vol] 142 mmol/L Normal 136-145 [facility] Comment on above: Performed By: #### L ACT #### [facility] [address] [address] [address] Mirian Velasco Urea nitrogen [Mass/Vol] 16.0 mg/dL Normal 7.0-18.0 [facility] Comment on above: Performed By: #### L ACT #### [facility] [address] [address] [address] Mirian Velasco Urea nitrogen/Creatinine [Mass ratio] 22.9 mg/mg Normal [facility] Comment on above: Performed By: #### L ACT #### [facility] [address] [address] [address] Mirian Velasco PROTIMEon 03-06-2023 INR Coag (PPP) [Relative time] {INR} Normal [facility] Comment on above: Performed By: #### P T #### [facility] [address] [address] [address] Mirian Velasco INR GUIDELINES SEE BELOW Normal [facility] Comment on above: Result Comment: SAMEER RED INR: 2.0 - 3.0 CONDITIONS NOT LISTED BELOW 2.5 - 3.5 FOR PROSTHETIC HEART VALVE REPLACEMENT 2.5 - 3.5 RECURRENT THROMBOSIS Performed By: #### P T #### [facility] [address] [address] [address] Mirian Velasco PT Coag (PPP) [Time] 9.8 s Normal 9.0-11.6 [facility] Comment on above: Performed By: #### P T #### [facility] [address] [address] [address] Mirian Velasco TROPONIN, HIGH SENSITIVITYon 03-06-2023 HSTROP 4.4 pg/mL Normal 4.0-51.3 [facility] Comment on above: Result Comment: CUT- OFF POINTS HAVE BEEN ESTABLISHED BASED ON THE FOURTH UNIVERSAL DEFINITIONS OF MYOCARDIAL INFARCTION. THE UPPER REFERENCE LIMIT (URL) OF TROPONIN, DEFINED THE 99TH PERCENTILE OF cTnI DISTRIBUTION IN A REFERENCE POPULATION, HAS BEEN CONFIRMED THE DECISION THRESHOLD FOR NE DIAGNOSIS. Performed By: #### L ACT #### [facility] [address] [address] [address] Mirian Velasco Bacteria identified Aer cx N om (Unsp spec)Ordered By: Niecy Duron on 03-02-2023 Superficial Wound Culture Methicillin Resis Staph Aureus [facility] CT LSPINE WO CONon 3 CT [...] BELLE Date: 2023-02-19 06:42 Normal [facility] XR ESOPHAGRAMon 12-26-2022 [facility] NURSING PROGon 12-08-2022 NURSING PROG HNO ID: [id number] Author: Lisa Contreras RN Service: Nursing Author Type: Registered Nurse Type: Nursing Progress Note Filed: 12/08/2022 11:28 AM Note Text: [facility] ENDOSCOPY POST PROCEDURE FOLLOW UP CALL [phone] (home) Date Phone Call Made: 12/08/2022 Attempt: [...] more pleasant? No Lisa Contreras RN Normal [facility] ANES POSTPROC EVALon 023 ANES POSTPROC EVAL HNO ID: [id number] Author: Andres Sheets DO Service: Anesthesiology Author Type: Anesthesiologist Type: Anesthesia Postprocedure Evaluation Filed: 12/07/2022 12:44 PM Note Text: POST ANESTHESIA EVALUATION NOTE : 1970 Procedure Summary Date: 12/07/22 Room / Location: [facility] Anesthesia Start: 1034 Anesthesia Stop: 1055 [...] December 07, 2022 TIME: 12:44 PM CSN: [id number] [facility] ANES PRE-OPon 12-07-2022 ANES PRE-OP HNO ID: [id number] Author: Andres Sheets DO Service: Anesthesiology Author Type: Anesthesiologist Type: Anesthesia Preprocedure Evaluation Filed: 12/07/2022 9:42 AM Note Text: ANESTHESIOLOGY DAY OF SURGERY NOTE : 1970 Procedure Information Date/Time: 12/07/22 1030 Scheduled providers: Winston Hannah DO Procedures: EGD - THERAPEUTIC, EUS, OR TUBE INTERVENTIONS PH MONTIEL INSERT OFF MEDS Location: [facility] Estimated body mass index is 24.55 [...] December 07, 2022 TIME: 9:40 AM CSN: [id number] [facility] HISTORY PHYSICALon HISTORY PHYSICAL HNO ID: [id number] Author: oSraida Mathis PA-C Service: Gastroenterology Author Type: Physician [employer] Tender Type: HANDP Filed: 12/07/2022 9:48 AM [...] PAIN, N/V/D Medication reconciliation list reviewed in [facility]. Past medical history, past surgical history, social history and family history reviewed and updated in [facility]. ALLERGIES Allergies: Risperidone Intolerance Comment:Breast discharge SEE [facility] FOR [facility]ITALS BP 109/74 Pulse 91 [...] Leal DATE: 12/07/2022 TIME: 9:41 AM Normal [facility] Upper GI endoscopyon 023 Upper GI endoscopy [facility] Gastrointestinal Endoscopy Patient Name: Mary Leal [...] by the physician, the nurse and the loss prevention detective in the pre-procedure area in the endoscopy [...] previously scheduled. Procedure Code(s): --- Professional --- 54037, Esophagogastroduodenos copy, flexible, transoral; with dilation of gastric/duodenal stricture(s) (eg, balloon, bougie) Diagnosis Code(s): --- Professional --- K21.00, Gastro-esophageal reflux disease with esophagitis, without bleeding K31.84, Gastroparesis CPT copyright 2020 [employer]. All rights reserved. The codes documented in this report are preliminary and upon prop making supervisor review may be revised to meet current compliance requirements. Attending Participation: I personally performed the entire procedure. Scope In: 10:39:12 AM Scope Out: 10:46:13 AM MD Winston Diaz MD 12/07/2022 10 (more content not included)... [facility] ANES POSTPROC EVALon 023 ANES POSTPROC EVAL HNO ID: [id number] Author: Annabel Burton MD Service: Anesthesiology Author Type: Physician Type: Anesthesia Postprocedure Evaluation Filed: 12/05/2022 2:01 PM Note Text: POST ANESTHESIA EVALUATION NOTE : 1970 Procedure Summary Date: 12/05/22 Room / Location: [facility] Anesthesia Start: 900 Anesthesia Stop: 917 [...] December 05, 2022 TIME: 2:00 PM CSN: [id number] [facility] ANES PRE-OPon 12-05-2022 ANES PRE-OP HNO ID: [id number] Author: Annabel Burton MD Service: Anesthesiology Author Type: Physician Type: Anesthesia Preprocedure Evaluation Filed: 12/05/2022 8:28 AM Note Text: ANESTHESIOLOGY DAY OF SURGERY NOTE : 1970 Procedure Information Date/Time: 12/05/22 0900 Scheduled providers: Isra Masters DO Procedure: SIGMOIDOSCOPY Location: [facility] Estimated body mass index is 24.55 [...] December 05, 2022 TIME: 8:26 AM CSN: [id number] Normal [facility] Flexible Sigmoidoscopyon Flexible sigmoidoscopy [facility] Gastrointestinal Endoscopy Patient Name: Mary Leal Procedure Date: 12/05/2022 8:55 AM Date of : 1970 Admit Type: Outpatient Age: 52 Room: [place] [address] Gender: Female Note Status: Finalized Attending MD: [...] present medications. Procedure Code(s): --- Professional --- 16627, 52, Sigmoidoscopy, flexible; diagnostic, including collection of specimen(s) by brushing or washing, when performed (separate procedure) Diagnosis Code(s): --- Professional --- K59.00, Constipation, unspecified CPT copyright 2020 [employer]. All rights reserved. The codes documented in this report are preliminary and upon prop making supervisor review may be revised to meet current compliance requirements. Attending Participation: I personally performed the entire procedure. Scope In: 9:07:04 AM Scope Out: 9:09:45 AM DO Isra Chen DO 12/05/2022 9:13:05 AM This report has been signed electronically by Isra Masters DO Number of Addenda: 0 Note Initiated On: 12/05/2022 8:55 AM Estimated Blood Loss: Estimated blood loss: none. [facility] HISTORY PHYSICALon HISTORY PHYSICAL HNO ID: [id number] Author: Lashanda Dorado PA-C Service: Gastroenterology Author Type: Physician Fiberglass Bonding Machine Tender Type: HANDP Filed: 12/05/2022 8:43 AM [...] PAIN, N/V/D Medication reconciliation list reviewed in [facility]. Past medical history, past surgical history, social history and family history reviewed and updated in [facility]. ALLERGIES Allergies: Risperidone Intolerance Comment:Breast discharge SEE [facility] FOR VITALS There were no vitals [...] Leal DATE: 12/05/2022 TIME: 8:42 AM Normal [facility] NURSING PROGon 12-05-2022 NURSING PROG HNO ID: [id number] Author: Lisa Contreras RN Service: ? Author Type: Registered Nurse Type: Nursing Progress Note Filed: 12/05/2022 1:07 PM Note Text: [facility] ENDOSCOPY PRE PROCEDURE CALL Akiko. I'm calling from [facility] endoscopy to provide you with the information for your surgery/procedure tomorrow. 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 yes When anesthesia or sedation is being given: Patient instructed you must have an adult hazmat cdl driver because you will not be able to work or drive for the rest of the day after your test.yes Can you please confirm the name and relationship of your hazmat cdl driver. tbd What is the best number for your hazmat cdl driver to be reached at tomorrow for updates? tbd Your hazmat cdl driver is allowed to wait here with [...] Do not wear makeup, lotion, or finger nigerien. yes Patient instructed: Please bring a list [...] given Any barriers to Patient learning (confusion? Centrifuge Separator Tender needed?): Patient/Patient Skull Splitter responded appropriately on phone. If patient needs to reschedule please call: [phone] [facility] phone number: [phone] Type of instruction given: Verbal by telephone contact. Normal [facility] NURSING PROGon 12-02-2022 NURSING PROG HNO ID: [id number] Author: Isra Harman RN Service: ? Author Type: Registered Nurse Type: Nursing Progress Note Filed: 12/02/2022 10:54 AM Note Text: [facility] ENDOSCOPY PRE PROCEDURE CALL Akiko. I'm calling from [facility] endoscopy to provide you with the information for your surgery/procedure tomorrow. 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 yes When anesthesia or sedation is being given: Patient instructed you must have an adult hazmat cdl driver because you will not be able to work or drive for the rest of the day after your test.yes Can you please confirm the name and relationship of your hazmat cdl driver. Rich What is the best number for your hazmat cdl driver to be reached at tomorrow for updates? [phone] Your hazmat cdl driver is allowed to wait here with [...] must be done on Monday.) Did you pear picker your bowel prep pt calling office [...] Do not wear makeup, lotion, or finger nigerien. yes Patient instructed: Please bring a list [...] given Any barriers to Patient learning (confusion? Centrifuge Separator Tender needed?): Patient/Patient Skull Splitter responded appropriately on phone. If patient needs to reschedule please call: [phone] [facility] phone number: [phone] Type of instruction given: Verbal by telephone contact. Normal [facility] AMYLASEon 10-20-2022 Amylase [Catalytic activity/Vol] 33 U/L Normal 25-115 [facility] Comment on above: Performed By: #### L ACT #### [facility] [address] [place] [address] Dr. Mirian Velasco CBC AUTO DIFFon 10-20-2022 BASO # 0.0 103/ul Normal 0.0-0.1 [facility] Comment on above: Performed By: #### P T #### [facility] [address] [place] [address] Dr. Mirian Velasco Basophils/100 WBC (Bld) 0.2 % Normal 0.2-2.0 [facility] Comment on above: Performed By: #### P T #### [facility] [address] [place] [address] Dr. Mirian Velasco EO # 0.1 103/ul Normal 0.0-0.7 [facility] Comment on above: Performed By: #### P T #### [facility] [address] [place] [address] Dr. Mirian Velasco Eosinophils/100 WBC (Bld) 0.6 % Critically low 0.9-7.0 [facility] Comment on above: Performed By: #### P T #### [facility] [address] [place] [address] Dr. Mirian Velasco Erythrocyte distribution width (RBC) [Ratio] 13.6 % Normal 11.0-15.0 [facility] Comment on above: Performed By: #### P T #### [facility] [address] [place] [address] Dr. Mirian Velasco Hematocrit (Bld) [Volume fraction] 41.0 % Normal 36.0-48.0 [facility] Comment on above: Performed By: #### P T #### [facility] [address] [place] [address] Dr. Mirian Velasco Hemoglobin (Bld) [Mass/Vol] 13.5 g/dL Normal 12.0-16.0 [facility] Comment on above: Performed By: #### P T #### [facility] [address] [place] [address] Dr. Mirian Velasco IG # 0.06 10e3/ul Critically high 0.00-0.03 [facility] Comment on above: Performed By: #### P T #### [facility] [address] [place] [address] Dr. Mirian Velasco IG % 0.4 % Normal 0.0-0.5 [facility] Comment on above: Performed By: #### P T #### [facility] [address] [place] [address] Dr. Mirian Velasco LYMPH # 2.5 103/ul Normal 1.2-3.8 [facility] Comment on above: Performed By: #### P T #### [facility] [address] [place] [address] Dr. Mirian Velasco Lymphocytes/100 WBC (Bld) 17.5 % Critically low 20.5-60.0 [facility] Comment on above: Performed By: #### P T #### [facility] [address] [place] [address] Dr. Mirian Velasco MANUAL DIFF REQ NO Normal [facility] Comment on above: Performed By: #### P T #### [facility] [address] [place] [address] Dr. Mirian Velasco MCH (RBC) [Entitic mass] 28.1 pg Normal 26.7-34.0 [facility] Comment on above: Performed By: #### P T #### [facility] [address] [place] [address] Dr. Mirian Velasco MCHC (RBC) [Mass/Vol] 32.9 g/dL Normal 29.9-35.2 [facility] Comment on above: Performed By: #### P T #### [facility] [address] [place] [address] [address] Mirian Velasco MCV (RBC) [Entitic vol] 85.2 fL Normal 81.0-99.0 [facility] Comment on above: Performed By: #### P T #### [facility] [address] [place] [address] Dr. Mirian Velasco MONO # 0.7 103/ul Normal 0.3-0.8 [facility] Comment on above: Performed By: #### P T #### [facility] [address] [place] [address] Dr. Mirian Velasco Monocytes/100 WBC (Bld) 4.5 % Normal 1.7-12.0 [facility] Comment on above: Performed By: #### P T #### [facility] [address] [place] [address] Dr. Mirian Velasco NEUT # 11.0 103/ul Critically high 1.4-6.5 [facility] Comment on above: Performed By: #### P T #### [facility] [address] [place] [address] Dr. Mirian Velasco Neutrophils/100 WBC (Bld) 76.8 % Critically high 43.0-75.0 [facility] Comment on above: Performed By: #### P T #### [facility] [address] [place] [address] Dr. Mirian Velasco Platelet mean volume (Bld) [Entitic vol] 8.7 fL Critically low 9.5-13.5 [facility] Comment on above: Performed By: #### P T #### [facility] [address] [place] [address] Dr. Mirian Velasco PLT 390 103/ul Normal 150-450 [facility] Comment on above: Performed By: #### P T #### [facility] [address] [place] [address] Dr. Mirian Velasco RBC 4.81 106/ul Normal 4.20-5.40 [facility] Comment on above: Performed By: #### P T #### [facility] [address] [place], [place] [address] Dr. Mirian Velasco WBC 14.3 103/ul Critically high 4.0-11.0 [facility] Comment on above: Performed By: #### P T #### [facility] [address] [place], [place] [address] ABD/PELV W CONon 10-20-[address] ABD/PELV W CON EXAMINATION: CT ABD/PELV [...] SALMA AMEZQUITA Date: 2022-10-20 12:35 Normal [facility] CULTURE BLOODon 10-20-2022 Microscopic examination of blood, culture Culture Observations: NO GROWTH AT 5 DAYS. Normal [facility] Comment on above: Performed By: #### B LDCX2 ####[facility] [id number] [place] [address]Dr. Mirian Velasco Microscopic examination of blood, culture Culture Observations: NO GROWTH AT 5 DAYS. Normal [facility] Comment on above: Performed By: #### B LDCX1 #### [facility] [address] [place] [address] Dr. 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 NO POTENTIAL PATHOGENS SEEN. Normal [facility] Comment on above: Performed By: #### U RCX #### [facility] [address] [place] [address] Dr. Mirian Velasco ER URINE PROFILEon Bilirubin Ql (U) Negative Normal NEGATIVE [facility] Comment on above: Performed By: #### P T #### [facility] [address] [place] [address] Dr. Mirian Velasco Clarity (U) CLEAR Normal CLEAR [facility] Comment on above: Performed By: #### P T #### [facility] [address] [place] [address] Dr. Mirian Velasco Color (U) LT. YELLOW Normal YELLOW [facility] Comment on above: Performed By: #### P T #### [facility] [address] [place] [address] Dr. Mirian Velasco ERUD A micrscopic examination will be performed if indicated. Normal [facility] Comment on above: Performed By: #### P T #### [facility] [address] [place] [address] Dr. Mirian Velasco Glucose Ql (U) Negative Normal NEGATIVE [facility] Comment on above: Performed By: #### P T #### [facility] [address] [place] [address] Dr. Mirian Velasco Hemoglobin Ql (U) Negative Normal NEGATIVE [facility] Comment on above: Performed By: #### P T #### [facility] [address] [place] [address] Dr. Mirian Velasco Ketones Ql (U) Negative Normal NEGATIVE [facility] Comment on above: Performed By: #### P T #### [facility] [address] [place] [address] Dr. Mirian Velasco LEUKOCYTES SMALL Abnormal NEGATIVE [facility] Comment on above: Performed By: #### P T #### [facility] [address] [place] [address] Dr. Mirian Velasco Nitrite Ql (U) Negative Normal NEGATIVE [facility] Comment on above: Performed By: #### P T #### [facility] [address] [place] [address] Dr. Mirian Velasco pH (U) 7.0 [pH] Normal 5-9 [facility] Comment on above: Performed By: #### P T #### [facility] [address] [place] [address] Dr. Mirian Velasco SPEC GRAVITY 1.015 Normal 1.005-<=1.025 [facility] Comment on above: Performed By: #### P T #### [facility] [address] [place] [address] Dr. Mirian Velasco UA PROTEIN Negative Normal NEGATIVE/ TRACE [facility] Comment on above: Performed By: #### P T #### [facility] [address] [place] [address] Dr. Mirian Velasco UR MICRO IND INDICATED Normal [facility] Comment on above: Performed By: #### P T #### [facility] [address] [place] [address] Dr. Mirian Velasco Urobilinogen Qn (U) 0.2 {Lyubov'U}/dL Normal 0.2 - 1. 0 [facility] Comment on above: Performed By: #### P T #### [facility] [address] [place] [address] Dr. Mirian Velasco LACTATE/LACTIC ACIDon 2021 Lactate [Moles/Vol] 1.3 mmol/L Normal 0.4-1.9 [facility] Comment on above: Performed By: #### L ACT #### [facility] [address] [place] [address] Dr. Mirian Velasco LIPASEon 10-20-2022 Lipase [Catalytic activity/Vol] 49.0 U/L Critically low 73.0-393.0 [facility] Comment on above: Performed By: #### P T #### [facility] [address] [place] [address] Dr. Mirian Velasco PROF 14(COMP METB)on 022 Albumin [Mass/Vol] 3.2 g/dL Critically low 3.4-5.0 [facility] Comment on above: Performed By: #### P T #### [facility] [address] [place] [address] Dr. Mirian Velasco Albumin/Globulin [Mass ratio] 0.9 {ratio} Normal [facility] Comment on above: Performed By: #### P T #### [facility] [address] [place] [address] Dr. Mirian Velasco ALP [Catalytic activity/Vol] 129 U/L Critically high 46-116 [facility] Comment on above: Performed By: #### P T #### [facility] [address] [place] [address] Dr. Mirian Velasco ALT [Catalytic activity/Vol] 25 U/L Normal 14-59 [facility] Comment on above: Performed By: #### P T #### [facility] [address] [place] [address] Dr. Mirian Velasco Anion gap [Moles/Vol] 10.7 mmol/L Normal [facility] Comment on above: Performed By: #### P T #### [facility] [address] [place] [address] Dr. Mirian Velasco AST [Catalytic activity/Vol] 20 U/L Normal 15-37 [facility] Comment on above: Performed By: #### P T #### [facility] [address] [place] [address] Dr. Mirian Velasco Bilirubin [Mass/Vol] 0.5 mg/dL Normal 0.2-1.0 [facility] Comment on above: Performed By: #### P T #### [facility] [address] [address] [address] Mirian Velasco Calcium [Mass/Vol] 9.2 mg/dL Normal 8.5-10.1 [facility] Comment on above: Performed By: #### P T #### [facility] [address] [address] [address] Mirian Velasco Chloride [Moles/Vol] 102 mmol/L Normal 98-107 [facility] Comment on above: Performed By: #### P T #### [facility] [address] [address] [address] Mirian Velasco CO2 [Moles/Vol] 30.0 mmol/L Normal 21.0-32.0 [facility] Comment on above: Performed By: #### P T #### [facility] [address] [place] [address] Dr. Mirian Velasco Creatinine [Mass/Vol] 0.68 mg/dL Normal 0.55-1.02 [facility] Comment on above: Performed By: #### P T #### [facility] [address] [place] [address] Dr. Mirian Velasco EGFR-AF ERITREAN >60 Normal >=60 [facility] Comment on above: Performed By: #### P T #### [facility] [address] [place] [address] Dr. Mirian Velasco EGFR-NON AF ERITREAN >60 Normal >=60 [facility] Comment on above: Performed By: #### P T #### [facility] [address] [address] [address] Mirian Velasco Globulin (S) [Mass/Vol] 3.7 g/dL Normal [facility] Comment on above: Performed By: #### P T #### [facility] [address] [place] [address] Dr. Mirian Velasco Glucose [Mass/Vol] 109 mg/dL Critically high 74-106 [facility] Comment on above: Performed By: #### P T #### [facility] [address] [place] [address] Dr. Mirian Velasco Potassium [Moles/Vol] 3.7 mmol/L Normal 3.5-5.1 [facility] Comment on above: Performed By: #### P T #### [facility] [address] [place] [address] Dr. Mirian Velasco Protein [Mass/Vol] 6.9 g/dL Normal 6.4-8.2 [facility] Comment on above: Performed By: #### P T #### [facility] [address] [place] [address] Dr. Mirian Velasco Sodium [Moles/Vol] 139 mmol/L Normal 136-145 [facility] Comment on above: Performed By: #### P T #### [facility] [address] [place] [address] Dr. Mirian Velasco Urea nitrogen [Mass/Vol] 13.0 mg/dL Normal 7.0-18.0 [facility] Comment on above: Performed By: #### P T #### [facility] [address] [place] [address] Dr. Mirian Velasco Urea nitrogen/Creatinine [Mass ratio] 19.1 mg/mg Normal [facility] Comment on above: Performed By: #### P T #### [facility] [address] [place] [address] Dr. Mirian Velasco URINE MICROSCOPIC ONLYon BACTERIA TRACE Abnormal NONE SEEN [facility] Comment on above: Performed By: #### P T #### [facility] [address] [place] [address] Dr. Mirian Velasco Bacteria identified Cx Nom (U) INDICATED Normal [facility] Comment on above: Performed By: #### P T #### [facility] [address] [place] [address] Dr. Mirian Velasco CAST NONE SEEN Normal NONE SEEN [facility] Comment on above: Performed By: #### P T #### [facility] [address] [place] [address] Dr. Mirian Velasco Crystals LM Nom (Urine sed) NONE SEEN Normal NONE SEEN [facility] Comment on above: Performed By: #### P T #### [facility] [address] [address] [address] Mirian Velasco Epithelial cells LM Ql (Urine sed) MODERATE Abnormal NONE SEEN /RARE [facility] Comment on above: Performed By: #### P T #### [facility] [address] [address] [address] Mirian Velasco MUCOUS NONE SEEN Normal NONE SEEN [facility] Comment on above: Performed By: #### P T #### [facility] [address] [address] [address] Mirian Velasco RBC NONE SEEN Abnormal 0-2 [facility] Comment on above: Performed By: #### P T #### [facility] [address] [address] [address] Mirian Velasco WBC 2-5 Abnormal NONE SEEN [facility] Comment on above: Performed By: #### P T #### [facility] [address] [address] [address] Mirian Velasco YEAST PRESENT Abnormal NONE SEEN [facility] Comment on above: Result Comment: RARE BUDDING YEAST Performed By: #### P T #### [facility] [address] [address] [address] Mirian Velasco POINT OF CARE GLUCOSEon 10-06 Glucose [Mass/Vol] 131 mg/dL Critically high [address] [place] [address] Comment on above: Performed By: #### P OCGLUC ####[facility] [id number] [address]Dr. Mirian Velasco Glucose [Mass/Vol] 113 mg/dL Critically high [address] [place] [address] Comment on above: Performed By: #### P OCGLUC ####[facility] [id number] [address]Dr. Mirian Velasco XR FOOT RT 2Von 10-17-2022 [...] NICKI DACOSTA Date: 2022-10-17 18:04 Normal [facility]on SARS-CoV-2 (COVID-19) RNA JOSÉ MIGUEL+probe Ql (Unsp spec) Not detected Normal NOT DETECTED The [facility] Comment on above: Result Comment: This test is not yet approved or cleared by the [place] FDA. When there are no FDA-approved or cleared tests available, and other criteria are met, FDA can make tests available under an emergency access mechanism called an Emergency Use Authorization (EUA). The EUA for this test is supported by the [place] of Health and Human Service's (HHS's) declaration [...] consistent with SARS-CoV-2. Performed By: #### C [facility] #### [facility] [address] [place] [address] Dr. Mirian Velasco Diagnostic Mammogram, Unilat eral [...] VERY IMPORTANT TO YOUR HEALTH. THE CURRENT [employer]RE[employer] AND [employer] COMPREHENSIVE CANCER NETWORK GUIDELINES RECOMMENDS ANNUAL MAMMOGRAPHY BEGINNING AT AGE 42 THIS FACILITY USES A REMINDER SYSTEM TO ENSURE ALL PATIENTS RECEIVE REMINDER NOTIFICATIONS AT THE APPROPRIATE TIME BASED ON THE RECOMMENDATIONS OF THIS EXAM. Board Certified Radiologist. Accredited by the ACR and FDA. Report reported and signed by Dawna Lizarraga on 09/28/2022 1307 Normal [facility] CBC AUTO DIFFon 09-26-2022 BASO # 0.1 103/ul Normal 0.0-0.1 [facility] Comment on above: Performed By: #### L ACT #### [facility] [address] [address] [address] Mirian Velasco Basophils/100 WBC (Bld) 0.8 % Normal 0.2-2.0 [facility] Comment on above: Performed By: #### L ACT #### [facility] [address] [place] [address] Dr. Mirian Velasco EO # 0.1 103/ul Normal 0.0-0.7 [facility] Comment on above: Performed By: #### L ACT #### [facility] [address] [address] [address] Mirian Velasco Eosinophils/100 WBC (Bld) 1.5 % Normal 0.9-7.0 [facility] Comment on above: Performed By: #### L ACT #### [facility] [address] [place] [address] Dr. Mirian Velasco Erythrocyte distribution width (RBC) [Ratio] 13.4 % Normal 11.0-15.0 [facility] Comment on above: Performed By: #### L ACT #### [facility] [address] [place] [address] Dr. Mirian Velasco Hematocrit (Bld) [Volume fraction] 41.3 % Normal 36.0-48.0 [facility] Comment on above: Performed By: #### L ACT #### [facility] [address] [place] [address] Dr. Mirian Velasco Hemoglobin (Bld) [Mass/Vol] 13.4 g/dL Normal 12.0-16.0 [facility] Comment on above: Performed By: #### L ACT #### [facility] [address] [place] [address] Dr. Mirian Velasco IG # 0.04 10e3/ul Critically high 0.00-0.03 [facility] Comment on above: Performed By: #### L ACT #### [facility] [address] [place] [address] Dr. Mirian Velasco IG % 0.5 % Normal 0.0-0.5 [facility] Comment on above: Performed By: #### L ACT #### [facility] [address] [place] [address] Dr. Mirian Velasco LYMPH # 2.5 103/ul Normal 1.2-3.8 [facility] Comment on above: Performed By: #### L ACT #### [facility] [address] [place] [address] Dr. Mirian Velasco Lymphocytes/100 WBC (Bld) 27.7 % Normal 20.5-60.0 [facility] Comment on above: Performed By: #### L ACT #### [facility] [address] [place] [address] Dr. Mirian Velasco MANUAL DIFF REQ NO Normal [facility] Comment on above: Performed By: #### L ACT #### [facility] [address] [place] [address] Dr. Mirian Velasco MCH (RBC) [Entitic mass] 27.6 pg Normal 26.7-34.0 [facility] Comment on above: Performed By: #### L ACT #### [facility] [address] [place] [address] Dr. Mirian Velasco MCHC (RBC) [Mass/Vol] 32.4 g/dL Normal 29.9-35.2 [facility] Comment on above: Performed By: #### L ACT #### [facility] [address] [place] [address] Dr. Mirian Velasco MCV (RBC) [Entitic vol] 85.0 fL Normal 81.0-99.0 [facility] Comment on above: Performed By: #### L ACT #### [facility] [address] [place] [address] Dr. Mirian Velasco MONO # 0.6 103/ul Normal 0.3-0.8 [facility] Comment on above: Performed By: #### L ACT #### [facility] [address] [place] [address] Dr. Mirian Velasco Monocytes/100 WBC (Bld) 6.9 % Normal 1.7-12.0 [facility] Comment on above: Performed By: #### L ACT #### [facility] [address] [address] [address] Mirian Velasco NEUT # 5.6 103/ul Normal 1.4-6.5 [facility] Comment on above: Performed By: #### L ACT #### [facility] [address] [place] [address] Dr. Mirian Velasco Neutrophils/100 WBC (Bld) 62.6 % Normal 43.0-75.0 [facility] Comment on above: Performed By: #### L ACT #### [facility] [address] [place] [address] Dr. Mirian Velasco Platelet mean volume (Bld) [Entitic vol] 8.6 fL Critically low 9.5-13.5 [facility] Comment on above: Performed By: #### L ACT #### [facility] [address] [place] [address] Dr. Mirian Velasco PLT 372 103/ul Normal 150-450 [facility] Comment on above: Performed By: #### L ACT #### [facility] [address] [place] [address] Dr. Mirian Velasco RBC 4.86 106/ul Normal 4.20-5.40 [facility] Comment on above: Performed By: #### L ACT #### [facility] [address] [place] [address] Dr. Mirian Velasco WBC 8.9 103/ul Normal 4.0-11.0 [facility] Comment on above: Performed By: #### L ACT #### [facility] [address] [place] [address] Dr. Mirian Velasco PROF CHEM 8 (BAS METB)on Anion gap [Moles/Vol] 8.0 mmol/L Normal [facility] Comment on above: Performed By: #### P T #### [facility] [address] [address] [address] Mirian Velasco Calcium [Mass/Vol] 9.0 mg/dL Normal 8.5-10.1 [facility] Comment on above: Performed By: #### P T #### [facility] [address] [address] [address] Mirian Velasco Chloride [Moles/Vol] 106 mmol/L Normal 98-107 [facility] Comment on above: Performed By: #### P T #### [facility] [address] [address] [address] Mirian Velasco CO2 [Moles/Vol] 30.3 mmol/L Normal 21.0-32.0 [facility] Comment on above: Performed By: #### P T #### [facility] [address] [place] [address] Dr. Mirian Velasco Creatinine [Mass/Vol] 0.71 mg/dL Normal 0.55-1.02 [facility] Comment on above: Performed By: #### P T #### [facility] [address] [place] [address] Dr. Mirian Velasco EGFR-AF ERITREAN >60 Normal >=60 [facility] Comment on above: Performed By: #### P T #### [facility] [address] [place] [address] Dr. Mirian Velasco EGFR-NON AF ERITREAN >60 Normal >=60 [facility] Comment on above: Performed By: #### P T #### [facility] [address] [address] [address] Mirian Velasco Glucose [Mass/Vol] 81 mg/dL Normal 74-106 [facility] Comment on above: Performed By: #### P T #### [facility] [address] [place] [address] Dr. Mirian Velasco Potassium [Moles/Vol] 4.3 mmol/L Normal 3.5-5.1 [facility] Comment on above: Performed By: #### P T #### [facility] [address] [place], [place] [address] Dr. Mirian Velasco Sodium [Moles/Vol] 140 mmol/L Normal 136-145 [facility] Comment on above: Performed By: #### P T #### [facility] [address] [place], [place] [address] Dr. Mirian Velasco Urea nitrogen [Mass/Vol] 16.0 mg/dL Normal 7.0-18.0 [facility] Comment on above: Performed By: #### P T #### [facility] [address] [place], [place] [address] Dr. Mirian Velasco Urea nitrogen/Creatinine [Mass ratio] 22.5 mg/mg Normal [facility] Comment on above: Performed By: #### P T #### [facility] [address] [address] [address] Mirian Velasco C reactive protein [Mass/vol ume] in Serum or PlasmaOrdered By: Beto Snyder on 09-22-2022 CRP [Mass/Vol] 0.6 mg/dL 0.0-1.0 [facility] C-Reactive Proteinon 022 C-Reactive Protein 0.6 mg/dL Normal 0.0-1.0 mg/dL [facility] [employer] Other Erythrocyte Sedimentation Ra lian 09-22-2022 ESR (Bld) [Velocity] 4 mm/h Normal 0-29 [facility] [employer] Other Erythrocyte sedimentation ra te by Photometric methodOrdered By: Beto Snyder on 09-22-2022 ESR Photometric method (Bld) [Velocity] 4 mm/hr 0-29 [facility] Serum nuclear antibody titer Ordered By: Beto Snyder on 09-22-2022 Nuclear Ab (S) [Titer] Negative . [facility] Comment on above: Negative <1:80 Borde rline 1:80 Positive >1:80ICAP nomenclature: AC-0For more information about Hep-2 cell patterns useKINGMAN REGIONAL MEDICAL CENTERpatterns.org, the official website for theInternational Consensus on Antinuclear Antibody ([place]UYITA)Patterns (ICAP).Performed at: [facility] [place], [place] [id number] Director: Erick Neville PhD, Phone: [phone] Serum or plasma rheumatoid f actor measurement (units/volume)Ordered By: Beto Snyder on 09-22-2022 Rheumatoid factor Qn [IU]/mL <14.0 [facility] Comment on above: Performed at: [facility] [address] [id number] Director: Erick Neville PhD, Phone: [phone] Serum or plasma thyroxine (T 4) measurement (mass/volume)Ordered By: Beto Snyder on 09-22-2022 T4 [Mass/Vol] 9.82 ug/dL 5.39-11.82 [facility] Serum or plasma uric acid me asurement (mass/volume)Ordered By: Beto Snyder on 09-22-2022 Urate [Mass/Vol] 4.2 mg/dL 2.6-7.2 [facility] TSH DL <= 0.005 mIU/L QnOrde red By: Beto Snyder on 09-22-2022 TSH Qn 1.98 m[IU]/L 0.45-5.33 [facility] Thyroid Stimulating Hormoneo n 09-22-2022 TSH Qn 1.24236503724 m[IU]/L Normal 0.45-5 .33 u[iU]/mL [facility] [employer] Other Thyroxine (T4) Totalon 09-22 Thyroxine (T4) Total 9.82 ug/dL Normal 5.39-11 .82 ug/dL Present Other Uric Acidon 09-22-2022 Urate [Mass/Vol] 4.2893646 mg/dL Normal 2.6-7.2 mg/dL Present Other XR knee BI 2Von 09-22-2022 XR knee BI 2V [facility] [employer] Other XR knee BI 2V [facility] [employer] Other XR knee BI 2V [address] [place] [address] [employer] Other XR knee BI 2[place] [address] Nor [employer] Other XR knee BI 2V XRay Report [facility] [employer] Other XR knee BI 2V Signed Present Other XR knee BI 2V Patient: Darrian Leal MR#: [id number] [place] [employer] Other XR knee BI 2V 863 Present Other XR knee BI 2V : 1970 Acct:[id number] Present Other XR knee BI 2V Age/Sex: 52 / F ADM Date: 09/22/22 Present Other XR knee BI 2V Loc: SOX Room: Type : [facility] [employer] Other XR knee BI 2V Attending Dr: Beto Snyder MD [place] [employer] Other XR knee BI 2V Copies to: Beto Snyder MD Present Other XR knee BI 2V Ordering Provider: Beto Snyder MD [place] [employer] Other XR knee BI 2V Date of Service: 09/22/22 Present Other XR knee BI 2V XR/XR knee BI 2V: Knee pain Present Other XR knee BI 2V XR knee BI 2V 09/22/2022 9:23 AM Present Other XR knee BI 2V SIGNS AND SYMPTOMS: Bilateral knee pain right greater than left Present Other XR knee BI 2V PROTOCOL: Frontal an d lateral radiographs of the bilateral knees Present Other XR knee BI 2V COMPARISON: None Present Other XR knee BI 2V FINDINGS: Present Other XR knee BI 2V There is evidence of prior ACL repair in the left knee with mild narrowing of the weightbearing Present Other XR knee BI 2V joint spaces on the left. The joint spaces are otherwise preserved. There is no fracture or Present Other XR knee BI 2V dislocation. No join t effusion or soft tissue swelling. Present Other XR knee BI 2V XR/XR knee BI 2V Present Other XR knee BI 2V IMPRESSION: Westward Leaning Other XR knee BI 2V Status post ACL repa ir on the left. Present Other XR knee BI 2V Mild degenerative changes are noted in the weightbearing joint spaces of the left. Present Other XR knee BI 2V No acute bony injury. Present Other XR knee BI 2V Impression dictated by: Howie Garcia M.D.09/22/2022 2:17 PM Present Other XR knee BI 2V Dictation Location: [address] [address] Present Other XR knee BI 2V Transcribed By: MARIO 09/22/22 [facility] Present Other XR knee BI 2V Dictated By: Howie Garcia II, MD 09/22/22 [facility] Present Other XR knee BI 2V Signed By: Present Other XR knee BI 2V 09/22/22 [facility] [employer] Other XR shoulder BI min 2Von 11- XR shoulder BI min 2V XR/XR shoulder BI min 2V: Shoulder pain Present Other XR shoulder BI min 2V XR shoulder BI min 2V 09/22/2022 9:23 AM Present Other XR shoulder BI min 2V SIGNS AND SYMPTOMS : Bilateral shoulder pain with limited range of motion Present Other XR shoulder BI min 2V PROTOCOL: Frontal, Grashey, scapular Y, and axillary views of the bilateral shoulders Present Other XR shoulder BI min 2V COMPARISON: 02/26/2018 Present Other XR shoulder BI min 2V There has been bon y resorption of the lateral margin of the clavicle on the right suggesting Present Other XR shoulder BI min 2V osteomyelitis is w hich may be degenerative or traumatic. Mild hypertrophy of the AC joint is noted. Present Other XR shoulder BI min 2V The glenohumeral j oint is preserved on the right. There is subcortical sclerosis greater tuberosity Present Other XR shoulder BI min 2V of the right suggesting underlying rotator cuff abnormalities. This is new when compared to the Present Other XR shoulder BI min 2V prior exam. The visualized right hemithorax is grossly intact. Present Other XR shoulder BI min 2V There is mild hypertrophy of the left acromioclavicular joint. There is mild subcortical sclerosis Present Other XR shoulder BI min 2V of the greater tuberosity in the left suggesting underlying rotator cuff abnormalities. The Present Other XR shoulder BI min 2V glenohumeral joint is preserved. There is no fracture or dislocation. Visualized left hemithorax is Present Other XR shoulder BI min 2V grossly intact. Present Other XR shoulder BI min 2V There is partial visualization of intervertebral disc arthroplasty is noted within the lower Present Other XR shoulder BI min 2V cervical spine. Rudimentary ribs are noted at C7, right greater than left Present Other XR shoulder BI min 2V XR/XR shoulder BI min 2V Present Other XR shoulder BI min 2V Degenerative velasco es are noted in the bilateral shoulders with findings suspicious for bilateral Present Other XR shoulder BI min 2V rotator cuff abnormalities as above. 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 Present Other XR shoulder BI min 2V Rudimentary ribs a re noted at C7, right greater than left Present Other XR shoulder BI min 2V Impression dictate d by: Howie Garcia M.D.09/22/2022 2:20 PM Present Other XR shoulder BI min 2V Transcribed By: KT Thorpe 09/22/22 [facility] Present Other XR shoulder BI min 2V Dictated By: Howie Garcia II, MD 09/22/22 [facility] Present Other XR shoulder BI min 2V 09/22/22 [facility] Present Other SCREENING MAMMOGRAM W/RUSSEL, BILATERAL*on 09-14-2022 SCREENING [...] IS VERY IMPORTANT TO YOUR HEALTH. CURRENT ER[employer]REAN [employer] AND N[employer] COMPREHENSIVE CANCER NETWORK GUIDELINES RECOMMENDS ANNUAL MAMMOGRAPHY BEGINNING AT AGE 42. THIS FACILITY USUALLY USES A REMINDER SYSTEM TO ENSURE ALL POSITIONS RECEIVED REMINDER NOTIFICATIONS AT THE TIME BASED ON THE RECOMMENDATIONS OF THIS EXAM. Report reported and signed by Zaida Diaz on 09/16/2022 1334 Normal [facility] Tobacco Screening.on 022 Adult depression screening assessment No [facility] y 250 DO Work Phone: Tobacco use status [facility] b) No [facility] 250 DO Work Phone: COVID Quick Testingon 2021 Result Negative Present Other AMYLASEon 04-17-2022 Amylase [Catalytic activity/Vol] 38 U/L Normal 25-115 [facility] Comment on above: Performed By: #### P T #### [facility] [address] [place] [address] Dr. Mirian Velasco CBC AUTO DIFFon 04-17-2022 BASO # 0.1 103/ul Normal 0.0-0.1 [facility] Comment on above: Performed By: #### L ACT #### [facility] [address] [place] [address] Dr. Mirian Velasco Basophils/100 WBC (Bld) 1.0 % Normal 0.2-2.0 [facility] Comment on above: Performed By: #### L ACT #### [facility] [address] [place] [address] Dr. Mirian Velasco EO # 0.2 103/ul Normal 0.0-0.7 [facility] Comment on above: Performed By: #### L ACT #### [facility] [address] [place] [address] Dr. Mirian Velasco Eosinophils/100 WBC (Bld) 3.3 % Normal 0.9-7.0 [facility] Comment on above: Performed By: #### L ACT #### [facility] [address] [place] [address] Dr. Mirian Velasco Erythrocyte distribution width (RBC) [Ratio] 12.0 % Normal 11.0-15.0 [facility] Comment on above: Performed By: #### L ACT #### [facility] [address] [place] [address] Dr. Mirian Velasco Hematocrit (Bld) [Volume fraction] 37.3 % Normal 36.0-48.0 [facility] Comment on above: Performed By: #### L ACT #### [facility] [address] [place] [address] Dr. Mirian Velasco Hemoglobin (Bld) [Mass/Vol] 12.1 g/dL Normal 12.0-16.0 [facility] Comment on above: Performed By: #### L ACT #### [facility] [address] [place] [address] Dr. Mirian Velasco IG # 0.03 10e3/ul Normal 0.00-0.03 [facility] Comment on above: Performed By: #### L ACT #### [facility] [address] [place] [address] Dr. Mirian Velasco IG % 0.4 % Normal 0.0-0.5 [facility] Comment on above: Performed By: #### L ACT #### [facility] [address] [place] [address] Dr. Mirian Velasco LYMPH # 1.8 103/ul Normal 1.2-3.8 [facility] Comment on above: Performed By: #### L ACT #### [facility] [address] [place] [address] Dr. Mirian Velasco Lymphocytes/100 WBC (Bld) 25.2 % Normal 20.5-60.0 [facility] Comment on above: Performed By: #### L ACT #### [facility] [address] [place] [address] Dr. Mirian Velasco MANUAL DIFF REQ NO Normal [facility] Comment on above: Performed By: #### L ACT #### [facility] [address] [address] [address] Mirian Velasco MCH (RBC) [Entitic mass] 29.0 pg Normal 26.7-34.0 [facility] Comment on above: Performed By: #### L ACT #### [facility] [address] [place] [address] Dr. Mirian Velasco MCHC (RBC) [Mass/Vol] 32.4 g/dL Normal 29.9-35.2 [facility] Comment on above: Performed By: #### L ACT #### [facility] [address] [place] [address] Dr. Mirian Velasco MCV (RBC) [Entitic vol] 89.4 fL Normal 81.0-99.0 [facility] Comment on above: Performed By: #### L ACT #### [facility] [address] [place] [address] Dr. Mirian Velasco MONO # 0.4 103/ul Normal 0.3-0.8 [facility] Comment on above: Performed By: #### L ACT #### [facility] [address] [place] [address] Dr. Mirian Velasco Monocytes/100 WBC (Bld) 5.8 % Normal 1.7-12.0 [facility] Comment on above: Performed By: #### L ACT #### [facility] [address] [place] [address] Dr. Mirian Velasco NEUT # 4.6 103/ul Normal 1.4-6.5 [facility] Comment on above: Performed By: #### L ACT #### [facility] [address] [place] [address] Dr. Mirian Velasco Neutrophils/100 WBC (Bld) 64.3 % Normal 43.0-75.0 [facility] Comment on above: Performed By: #### L ACT #### [facility] [address] [place] [address] Dr. Mirian Velasco Platelet mean volume (Bld) [Entitic vol] 8.6 fL Critically low 9.5-13.5 [facility] Comment on above: Performed By: #### L ACT #### [facility] [address], [place] [address] Dr. Mirian Velasco PLT 597 103/ul Critically high 150-450 [facility] Comment on above: Performed By: #### L ACT #### [facility] [address] [place], [place] [address] Dr. Mirian Velasco RBC 4.17 106/ul Critically low 4.20-5.40 [facility] Comment on above: Performed By: #### L ACT #### [facility] [address] [place], [place] [address] Dr. Mirian Velasco WBC 7.2 103/ul Normal 4.0-11.0 [facility] Comment on above: Performed By: #### L ACT #### [facility] [address] [place], [place] [address] ABD/PELVIS WO CONon [...] MAKENNA TRIPLETT Date: 2022-04-17 11:19 Normal [facility] ER URINE PROFILEon 2 Bilirubin Ql (U) Negative Normal NEGATIVE [facility] Comment on above: Performed By: #### P T #### [facility] [address] [place] [address] Dr. Mirian Velasco Clarity (U) CLEAR Normal CLEAR [facility] Comment on above: Performed By: #### P T #### [facility] [address] [place] [address] Dr. Mirian Velasco Color (U) YELLOW Normal YELLOW [facility] Comment on above: Performed By: #### P T #### [facility] [address] [place] [address] Dr. Mirian Velasco ERURAVI A micrscopic examination will be performed if indicated. Normal [facility] Comment on above: Performed By: #### P T #### [facility] [address] [place] [address] Dr. Mirian Velasco Glucose Ql (U) Negative Normal NEGATIVE [facility] Comment on above: Performed By: #### P T #### [facility] [address] [place] [address] Dr. Mirian Velasco Hemoglobin Ql (U) Negative Normal NEGATIVE [facility] Comment on above: Performed By: #### P T #### [facility] [address] [place] [address] Dr. Mirian Velasco Ketones Ql (U) Negative Normal NEGATIVE [facility] Comment on above: Performed By: #### P T #### [facility] [address] [place] [address] Dr. Mirian Velasco LEUKOCYTES Negative Normal NEGATIVE [facility] Comment on above: Performed By: #### P T #### [facility] [address] [place] [address] Dr. Mirian Velasco Nitrite Ql (U) Negative Normal NEGATIVE [facility] Comment on above: Performed By: #### P T #### [facility] [address] [place] [address] Dr. Mirian Velasco pH (U) 5.5 [pH] Normal 5-9 [facility] Comment on above: Performed By: #### P T #### [facility] [address] [place] [address] Dr. Mirian Velasco SPEC GRAVITY >=1.030 Abnormal 1.005-<=1.025 [facility] Comment on above: Performed By: #### P T #### [facility] [address] [place] [address] Dr. Mirian Velasco UA PROTEIN Negative Normal NEGATIVE/ TRACE [facility] Comment on above: Performed By: #### P T #### [facility] [address] [place] [address] Dr. Mirian Velasco UR MICRO IND NOT INDICATED Normal [facility] Comment on above: Performed By: #### P T #### [facility] [address] [place] [address] Dr. Mirian Velasco Urobilinogen Qn (U) 0.2 {Lyubov'U}/dL Normal 0.2 - 1. 0 [facility] Comment on above: Performed By: #### P T #### [facility] [address] [place] [address] Dr. Mirian Velasco LIPASEon 04-17-2022 Lipase [Catalytic activity/Vol] 117.0 U/L Normal 73.0-393.0 [facility] Comment on above: Performed By: #### P T #### [facility] [address] [place] [address] Dr. Mirian Velasco PROF 14(COMP METB)on 022 Albumin [Mass/Vol] 3.5 g/dL Normal 3.4-5.0 [facility] Comment on above: Performed By: #### P T #### [facility] [address] [place] [address] Dr. Mirian Velasco Albumin/Globulin [Mass ratio] 0.9 {ratio} Normal [facility] Comment on above: Performed By: #### P T #### [facility] [address] [place] [address] Dr. Mirian Velasco ALP [Catalytic activity/Vol] 237 U/L Critically high 46-116 [facility] Comment on above: Performed By: #### P T #### [facility] [address] [place] [address] Dr. Mirian Velasco ALT [Catalytic activity/Vol] 53 U/L Normal 14-59 [facility] Comment on above: Performed By: #### P T #### [facility] [address] [place] [address] Dr. Mirian Velasco Anion gap [Moles/Vol] 11.0 mmol/L Normal [facility] Comment on above: Performed By: #### P T #### [facility] [address] [place] [address] Dr. Mirian Velasco AST [Catalytic activity/Vol] 45 U/L Critically high 15-37 [facility] Comment on above: Performed By: #### P T #### [facility] [address] [place] [address] Dr. Mirian Velasco Bilirubin [Mass/Vol] 0.2 mg/dL Normal 0.2-1.0 [facility] Comment on above: Performed By: #### P T #### [facility] [address] [place] [address] Dr. Mirian Velasco Calcium [Mass/Vol] 9.3 mg/dL Normal 8.5-10.1 [facility] Comment on above: Performed By: #### P T #### [facility] [address] [place] [address] Dr. Mirian Velasco Chloride [Moles/Vol] 105 mmol/L Normal 98-107 [facility] Comment on above: Performed By: #### P T #### [facility] [address] [place] [address] Dr. Mirian Velasco CO2 [Moles/Vol] 29.5 mmol/L Normal 21.0-32.0 [facility] Comment on above: Performed By: #### P T #### [facility] [address] [place] [address] [address] Mirian Velasco Creatinine [Mass/Vol] 0.69 mg/dL Normal 0.55-1.02 [facility] Comment on above: Performed By: #### P T #### [facility] [address] [place] [address] [address] Mirian Velasco EGFR-AF ERITREAN >110 Normal >=60 [facility] Comment on above: Performed By: #### P T #### [facility] [address] [place] [address] [address] Mirian Velasco EGFR-NON AF ERITREAN >90 Normal >=60 [facility] Comment on above: Performed By: #### P T #### [facility] [address] [place] [address] Dr. Mirian Velasco Globulin (S) [Mass/Vol] 4.0 g/dL Normal [facility] Comment on above: Performed By: #### P T #### [facility] [address] [place] [address] Dr. Mirian Velasco Glucose [Mass/Vol] 107 mg/dL Critically high 74-106 [facility] Comment on above: Performed By: #### P T #### [facility] [address] [place] [address] Dr. Mirian Velasco Potassium [Moles/Vol] 4.5 mmol/L Normal 3.5-5.1 [facility] Comment on above: Performed By: #### P T #### [facility] [address] [place] [address] [address] Mirian Velasco Protein [Mass/Vol] 7.5 g/dL Normal 6.4-8.2 [facility] Comment on above: Performed By: #### P T #### [facility] [address] [place] [address] [address] Mirian Velasco Sodium [Moles/Vol] 141 mmol/L Normal 136-145 [facility] Comment on above: Performed By: #### P T #### [facility] [address] [place] [address] [address] Mirian Velasco Urea nitrogen [Mass/Vol] 11.0 mg/dL Normal 7.0-18.0 [facility] Comment on above: Performed By: #### P T #### [facility] [address] [place] [address] [address] Mirian Velasco Urea nitrogen/Creatinine [Mass ratio] 15.9 mg/mg Normal [facility] Comment on above: Performed By: #### P T #### [facility] [address] [place] [address] [address] Mirian Velasco XR CHEST 1 Von 04-17-2022 XR CHEST 1 V EXAM: Chest x-ray HISTORY: Pain. COMPARISON: 02/20/2022 TECHNIQUE: AP portable upright view of the chest. FINDINGS: Heart and Vascularity are unremarkable. Lungs are free of focal infiltrates. No effusions are noted. Impression: No acute heart or lung disease identified. Electronically authenticated by: NICKI BUTT Date: 2022-04-17 11:03 Normal [facility] Basic metabolic 2000 panelon 04-05-2022 Anion gap [Moles/Vol] 13 mmol/L Normal 9-18 [facility] Comment on above: Order Comment: Speci men Type: BLOOD SPECIMEN Ordering Facility: [facility] Address: [address] [place] [address] Performed By: #### 5 8410-2 #### [facility] CLIA [id number] [address] [place] [address] [place] Calcium [Mass/Vol] 9.0 mg/dL Normal 8.5-10.2 [facility] Comment on above: Order Comment: Speci men Type: BLOOD SPECIMEN Ordering Facility: [facility] Address: [address] [address] Performed By: #### 5 8410-2 #### [facility] CLIA [id number] [place] [address] [place] Chloride [Moles/Vol] 104 mmol/L Normal 97-105 [facility] Comment on above: Order Comment: Speci men Type: BLOOD SPECIMEN Ordering Facility: [facility] Address: [address] [place] [address] Performed By: #### 5 8410-2 #### [facility] CLIA [id number] [place] [address] [place] CO2 [Moles/Vol] 25 mmol/L Normal 22-30 [facility] Comment on above: Order Comment: Speci men Type: BLOOD SPECIMEN Ordering Facility: [facility] Address: [address] [place] [address] Performed By: #### 5 8410-2 #### [facility] CLIA [id number] [address] [place] [address] [place] Creatinine [Mass/Vol] 0.65 mg/dL Normal 0.58-0.96 [facility] Comment on above: Order Comment: Speci men Type: BLOOD SPECIMEN Ordering Facility: [facility] Address: [address] [place] [address] Performed By: #### 5 8410-2 #### [facility] CLIA [id number] [address] [place] [address] [place] ESTIMATED GLOMERULAR FILTRATION RATE 108 mL/min/1.73m??? Normal >=60 [facility] Comment on above: Order Comment: Speci men Type: BLOOD SPECIMEN Ordering Facility: [facility] Address: [address] [place] [address] Result Comment: Mary mated Glomerular Filtration Rate [...] GFR. Performed By: #### 5 8410-2 #### [facility] CLIA [id number] [place] [address] [place] Glucose [Mass/Vol] 109 mg/dL High 74-99 [facility] Comment on above: Order Comment: Leanne terry Type: BLOOD SPECIMEN Ordering Facility: [facility] Address: [address] [place] [address] Result Comment: The [place] [employer] (ADA) provides guidance for cutoff [...] Standards of Medical Care in Diabetes 2016, [place] [employer]. Diabetes Care. 2016.39(Suppl 1). Performed By: #### 5 8410-2 #### [facility] CLIA [id number] [address] [place] [address] [place] Potassium [Moles/Vol] 3.9 mmol/L Normal 3.7-5.1 [facility] Comment on above: Order Comment: Leanne terry Type: BLOOD SPECIMEN Ordering Facility: [facility] Address: [address] [place] [address] Performed By: #### 5 8410-2 #### [facility] CLIA [id number] [address] [place] [address] [place] Sodium [Moles/Vol] 142 mmol/L Normal 136-144 [facility] Comment on above: Order Comment: Leanne men Type: BLOOD SPECIMEN Ordering Facility: [facility] Address: [address] [address] Performed By: #### 5 8410-2 #### [facility] CLIA [id number] [address] [place] [address] [place] Urea nitrogen [Mass/Vol] 7 mg/dL Normal 7-21 [facility] Comment on above: Order Comment: Leanne terry Type: BLOOD SPECIMEN Ordering Facility: [facility] Address: [address] [place] [address] Performed By: #### 5 8410-2 #### [facility] CLIA [id number] [address] [place] [address] [place] CBC W Auto Differential pane l (Bld)on 04-05-2022 Basophils (Bld) [#/Vol] 0.05 10*3/uL Normal <0.11 [facility] Comment on above: Order Comment: Speci men Type: BLOOD SPECIMENOrdering Facility: [facility] Address: [address] [place] [address] Performed By: #### B MP #### [place] [phone] Basophils/100 WBC (Bld) 0.7 % Normal [facility] Comment on above: Order Comment: Speci men Type: BLOOD SPECIMENOrdering Facility: [facility] Address: [address] [place] [address] Performed By: #### B MP #### [place] [phone] Differential cell count method Nom (Bld) Auto Normal [facility] Comment on above: Order Comment: Speci men Type: BLOOD SPECIMENOrdering Facility: [facility] Address: [address] [place] [address] Performed By: #### B MP #### [place] [phone] Eosinophils (Bld) [#/Vol] 0.55 10*3/uL High <0.46 [facility] Comment on above: Order Comment: Speci men Type: BLOOD SPECIMENOrdering Facility: [facility] Address: [address] [place] [address] Performed By: #### B MP #### [place] [phone] Eosinophils/100 WBC (Bld) 8.2 % Normal [facility] Comment on above: Order Comment: Speci men Type: BLOOD SPECIMENOrdering Facility: [facility] Address: [address] [place] [address] Performed By: #### B MP #### [place] [phone] Erythrocyte distribution width (RBC) [Ratio] 12.8 % Normal 11.5-15.0 [facility] Comment on above: Order Comment: Speci men Type: BLOOD SPECIMENOrdering Facility: [facility] Address: [address] [place] [address] Performed By: #### B MP #### [place] [phone] Hematocrit (Bld) [Volume fraction] 31.1 % Low 36.0-46.0 [facility] Comment on above: Order Comment: Speci men Type: BLOOD SPECIMENOrdering Facility: [facility] Address: [address] [place] [address] Performed By: #### B MP #### [place] [phone] Hemoglobin (Bld) [Mass/Vol] 10.5 g/dL Low 11.5-15.5 [facility] Comment on above: Order Comment: Speci men Type: BLOOD SPECIMENOrdering Facility: [facility] Address: [address] [place] [address] Performed By: #### B MP #### [place] [phone] IMMATURE GRAN % 0.4 % Normal [facility] Comment on above: Order Comment: Speci men Type: BLOOD SPECIMENOrdering Facility: [facility] Address: [address] [place] [address] Performed By: #### B MP #### [place] [phone] IMMATURE GRAN ABS 0.03 k/uL Normal <0.10 [facility] Comment on above: Order Comment: Speci men Type: BLOOD SPECIMENOrdering Facility: [facility] Address: [address] [place] [address] Performed By: #### B MP #### [place] [phone] Lymphocytes (Bld) [#/Vol] 1.47 10*3/uL Normal 1.00-4.00 [facility] Comment on above: Order Comment: Speci men Type: BLOOD SPECIMENOrdering Facility: [facility] Address: [address] [place] [address] Performed By: #### B MP #### [place] [phone] Lymphocytes/100 WBC (Bld) 22.0 % Normal [facility] Comment on above: Order Comment: Speci men Type: BLOOD SPECIMENOrdering Facility: [facility] Address: [address] [place] [address] Performed By: #### B MP #### [place] [phone] MCH (RBC) [Entitic mass] 29.9 pg Normal 26.0-34.0 [facility] Comment on above: Order Comment: Speci men Type: BLOOD SPECIMENOrdering Facility: [facility] Address: [address] [place] [address] Performed By: #### B MP #### [place] [phone] MCHC (RBC) [Mass/Vol] 33.8 g/dL Normal 30.5-36.0 [facility] Comment on above: Order Comment: Speci men Type: BLOOD SPECIMENOrdering Facility: [facility] Address: [address] [place] [address] Performed By: #### B MP #### [place] [phone] MCV (RBC) [Entitic vol] 88.6 fL Normal 80.0-100.0 [facility] Comment on above: Order Comment: Speci men Type: BLOOD SPECIMENOrdering Facility: [facility] Address: [address] [place] [address] Performed By: #### B MP #### [place] [phone] Monocytes (Bld) [#/Vol] 0.50 10*3/uL Normal <0.87 [facility] Comment on above: Order Comment: Speci men Type: BLOOD SPECIMENOrdering Facility: [facility] Address: [address] [place] [address] Performed By: #### B MP #### [place] [address] Monocytes/100 WBC (Bld) 7.5 % Normal [facility] Comment on above: Order Comment: Speci men Type: BLOOD SPECIMENOrdering Facility: [facility] Address: [address] [place] [address] Performed By: #### B MP #### [phone] Neutrophils (Bld) [#/Vol] 4.08 10*3/uL Normal 1.45-7.50 [facility] Comment on above: Order Comment: Speci men Type: BLOOD SPECIMENOrdering Facility: [facility] Address: [address] [place] [address] Performed By: #### B MP #### [phone] Neutrophils/100 WBC (Bld) 61.2 % Normal [facility] Comment on above: Order Comment: Speci men Type: BLOOD SPECIMENOrdering Facility: [facility] Address: [address] [place] [address] Performed By: #### B MP #### [phone] Nucleated RBC (Bld) [#/Vol] 10*3/uL Normal <0.01 [facility] Comment on above: Order Comment: Speci men Type: BLOOD SPECIMENOrdering Facility: [facility] Address: [address] [place] [address] Performed By: #### B MP #### [phone] Nucleated RBC/100 WBC (Bld) [Ratio] 0.0 /100 WBC Normal [facility] Comment on above: Order Comment: Speci men Type: BLOOD SPECIMENOrdering Facility: [facility] Address: [address] [place] [address] Performed By: #### B MP #### [place] [phone] Platelet mean volume (Bld) [Entitic vol] 8.9 fL Low 9.0-12.7 [facility] Comment on above: Order Comment: Speci men Type: BLOOD SPECIMENOrdering Facility: [facility] Address: [address] [place] [address] Performed By: #### B MP #### [place] [phone] Platelets (Bld) [#/Vol] 455 10*3/uL High 150-400 [facility] Comment on above: Order Comment: Speci men Type: BLOOD SPECIMENOrdering Facility: [facility] Address: [address] [place] [address] Performed By: #### B MP #### [place] [phone] RBC (Bld) [#/Vol] 3.51 10*6/uL Low 3.90-5.20 [facility] Comment on above: Order Comment: Speci men Type: BLOOD SPECIMENOrdering Facility: [facility] Address: [address] [place] [address] Performed By: #### B MP #### [place] [phone] WBC (Bld) [#/Vol] 6.68 10*3/uL Normal 3.70-11.00 [facility] Comment on above: Order Comment: Speci men Type: BLOOD SPECIMENOrdering Facility: [facility] Address: [address] [place] [address] Performed By: #### B MP #### [place] [address] CNDSon 04-05-2022 CNDS HNO ID: [id number] Author: Jessi Sheets APRN.[facility] Service: Colorectal Author Type: Nurse Practitioner [...] of the summary. CONSULTING TEAMS DURING HOSPITALIZATION: [facility] Treatment Team: Attending Provider: Mary Obrien [...] only. 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 Remained nauseated. POD4 re-advanced to full liquids [...] by mo (more content not included)... Normal [facility] Magnesium SerPl-mCncon 04-05 Magnesium [Mass/Vol] 2.0 mg/dL Normal 1.7-2.3 [facility] Comment on above: Order Comment: Speci men Type: BLOOD SPECIMEN Ordering Facility: [facility] Address: [address] [place] [address] Performed By: #### 5 8410-2 #### [facility] [place] [id number] [address] [place] [address] [place] NURSING PROGon 04-05-2022 NURSING PROG HNO ID: [id number] Author: Liliana Mayer RN Service: ? 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 This note was completed by: [facility] HNO ID: [id number] Author: Liliana Mayer RN Service: ? Author [...] This note was completed by: Liliana Mayer [employer] [facility] NURSING PROG HNO ID: [id number] Author: Tez Gu RN Service: ? Author Type: Registered Nurse Type: Nursing Progress Note Filed: 04/04/2022 10:58 PM Note Text: Nursing Progress Note Patient Name: Mary Leal Patient Location: /[id number]-[id number] __ Daily Note:04/04/22 2140 Pt is alert and oriented x3. Pt mabulating independently. Surgical sites intact. Pt refusing IVF, pt states she drinks enough water. 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 SERVICE DATE: 04/05/2022 SERVICE TIME: [...] April 05, 2022 TIME: 9:54 AM Normal [facility] Phosphate SerPl-mCncon 04-05 Phosphate [Mass/Vol] 4.6 mg/dL Normal 2.7-4.8 [facility] Comment on above: Order Comment: Everettei men Type: BLOOD SPECIMEN Ordering Facility: [facility] Address: [address] [place], [place] [address] Performed By: #### 5 8410-2 #### [facility] CLIA [id number] [address] [place] [address] [place] Basic metabolic 2000 panelon 04-04-2022 Anion gap [Moles/Vol] 10 mmol/L Normal 9-18 [facility] Comment on above: Order Comment: Speci men Type: BLOOD SPECIMENOrdering Facility: [facility] Address: [address] Performed By: #### 2 4321-2, , 2776-11 ####[facility] [id number] [place] [id number] [place] Calcium [Mass/Vol] 8.9 mg/dL Normal 8.5-10.2 [facility] Comment on above: Order Comment: Speci men Type: BLOOD SPECIMENOrdering Facility: [facility] Address: [address] [place], [place] [address] Performed By: #### 2 4321-2, , 2776-11 ####[facility]ORYCLIA [id number] [place] [address] [place] Chloride [Moles/Vol] 104 mmol/L Normal 97-105 [facility] Comment on above: Order Comment: Speci men Type: BLOOD SPECIMENOrdering Facility: [facility] Address: [address] Performed By: #### 2 4321-2, , 2776-11 ####[facility]IA [id number] [place] [id number] [place] CO2 [Moles/Vol] 26 mmol/L Normal 22-30 [facility] Comment on above: Order Comment: Speci men Type: BLOOD SPECIMENOrdering Facility: [facility] Address: [address] Performed By: #### 2 4321-2, , 2776-11 ####[facility] [id number] [place] [id number] [place] Creatinine [Mass/Vol] 0.56 mg/dL Low 0.58-0.96 [facility] Comment on above: Order Comment: Speci men Type: BLOOD SPECIMENOrdering Facility: [facility] Address: [address] [phone] Performed By: #### 2 4321-2, , 2776-11 ####[facility]IA [id number] [place] [id number] [place] ESTIMATED GLOMERULAR FILTRATION RATE 112 mL/min/1.73m??? Normal >=60 [facility] Comment on above: Order Comment: Everetteamena terry Type: BLOOD SPECIMENOrdering Facility: [facility] Address: [address] [place] [address] Result Comment: Mary mated Glomerular Filtration Rate [...] Performed By: #### 2 4321-2, , 2776-11 ####[facility] [id number] [place] [id number] [place] Glucose [Mass/Vol] 112 mg/dL High 74-99 [facility] Comment on above: Order Comment: Leanne terry Type: BLOOD SPECIMENOrdering Facility: [facility] Address: [address] [place] [address] Result Comment: The [place] [employer] (ADA) provides guidance for cutoff [...] Standards of Medical Care in Diabetes 2016, [place] [employer]. Diabetes Care. 2016.39(Suppl 1). Performed By: #### 2 4321-2, , 2776- ####[facility] [id number] [place] [id number] [place] Potassium [Moles/Vol] 3.9 mmol/L Normal 3.7-5.1 [facility] Comment on above: Order Comment: Speci men Type: BLOOD SPECIMENOrdering Facility: [facility] Address: [address] [place] [address] Performed By: #### 2 4321-2, , 2776-11 ####[facility]ORYCLIA [id number] [place] [address] [place] Sodium [Moles/Vol] 140 mmol/L Normal 136-144 [facility] Comment on above: Order Comment: Speci men Type: BLOOD SPECIMENOrdering Facility: [facility] Address: [address] [place] [address] Performed By: #### 2 4321-2, , 2776-11 ####[facility]ORATORYCLIA [id number] [place] [address] [place] Urea nitrogen [Mass/Vol] 3 mg/dL Low 7-21 [facility] Comment on above: Order Comment: Speci men Type: BLOOD SPECIMENOrdering Facility: [facility] Address: [address] [place] [address] Performed By: #### 2 4321-2, , 2776-11 ####[facility]ORATORYCLIA [id number] [place] [address] [place] CBC W Auto Differential pane l (Bld)on 04-04-2022 Basophils (Bld) [#/Vol] 0.03 10*3/uL Normal <0.11 [facility] Comment on above: Order Comment: Speci men Type: BLOOD SPECIMEN Ordering Facility: [facility] Address: [address] [place] [address] Performed By: #### 5 7021-8 #### [facility] CLIA [id number] [place] Basophils/100 WBC (Bld) 0.5 % Normal [facility] Comment on above: Order Comment: Speci men Type: BLOOD SPECIMEN Ordering Facility: [facility] Address: [address] [place] [address] Performed By: #### 5 7021-8 #### [facility] CLIA [id number] [address] [place] [address] [place] Differential cell count method Nom (Bld) Auto Normal [facility] Comment on above: Order Comment: Speci men Type: BLOOD SPECIMEN Ordering Facility: [facility] Address: [address] [place] [address] Performed By: #### 5 7021-8 #### [facility] CLIA [id number] [address] [place] [address] [place] Eosinophils (Bld) [#/Vol] 0.48 10*3/uL High <0.46 [facility] Comment on above: Order Comment: Speci men Type: BLOOD SPECIMEN Ordering Facility: [facility] Address: [address] [place] [address] Performed By: #### 5 7021-8 #### [facility] CLIA [id number] [address] [place] [address] [place] Eosinophils/100 WBC (Bld) 7.7 % Normal [facility] Comment on above: Order Comment: Speci men Type: BLOOD SPECIMEN Ordering Facility: [facility] Address: [address] [place] [address] Performed By: #### 5 7021-8 #### [facility] CLIA [id number] [address] [place] [address] [place] Erythrocyte distribution width (RBC) [Ratio] 12.7 % Normal 11.5-15.0 [facility] Comment on above: Order Comment: Speci men Type: BLOOD SPECIMEN Ordering Facility: [facility] Address: [address] [place] [address] Performed By: #### 5 7021-8 #### [facility] CLIA [id number] [address] [place] [address] [place] Hematocrit (Bld) [Volume fraction] 31.2 % Low 36.0-46.0 [facility] Comment on above: Order Comment: Speci men Type: BLOOD SPECIMEN Ordering Facility: [facility] Address: [address] [place] [address] Performed By: #### 5 7021-8 #### [facility] CLIA [id number] [address] [place] [address] Hemoglobin (Bld) [Mass/Vol] 10.7 g/dL Low 11.5-15.5 [facility] Comment on above: Order Comment: Speci men Type: BLOOD SPECIMEN Ordering Facility: [facility] Address: [address] [place] [address] Performed By: #### 5 7021-8 #### [facility] CLIA [id number] [address] [place] [address] IMMATURE GRAN % 0.5 % Normal [facility] Comment on above: Order Comment: Speci men Type: BLOOD SPECIMEN Ordering Facility: [facility] Address: [address] [place] [address] Performed By: #### 5 7021-8 #### [facility] CLIA [id number] [address] [place] [address] IMMATURE GRAN ABS 0.03 k/uL Normal <0.10 [facility] Comment on above: Order Comment: Speci men Type: BLOOD SPECIMEN Ordering Facility: [facility] Address: [address] [place] [address] Performed By: #### 5 7021-8 #### [facility] CLIA [id number] [address] [place] [address] [place] Lymphocytes (Bld) [#/Vol] 1.13 10*3/uL Normal 1.00-4.00 [facility] Comment on above: Order Comment: Speci men Type: BLOOD SPECIMEN Ordering Facility: [facility] Address: [address] [place] [address] Performed By: #### 5 7021-8 #### [facility] CLIA [id number] [address] [place] [address] [place] Lymphocytes/100 WBC (Bld) 18.2 % Normal [facility] Comment on above: Order Comment: Speci men Type: BLOOD SPECIMEN Ordering Facility: [facility] Address: [address] [place] [address] Performed By: #### 5 7021-8 #### [facility] CLIA [id number] [address] [place] [address] [facility] MCH (RBC) [Entitic mass] 29.9 pg Normal 26.0-34.0 [facility] Comment on above: Order Comment: Speci men Type: BLOOD SPECIMEN Ordering Facility: [facility] Address: [address] [place] [address] Performed By: #### 5 7021-8 #### [facility] CLIA [id number] [address] [place] [address] [place] [facility] MCHC (RBC) [Mass/Vol] 34.3 g/dL Normal 30.5-36.0 [facility] Comment on above: Order Comment: Speci men Type: BLOOD SPECIMEN Ordering Facility: [facility] Address: [address] [place] [address] Performed By: #### 5 7021-8 #### [facility] CLIA [id number] [address] [place] [address] MCV (RBC) [Entitic vol] 87.2 fL Normal 80.0-100.0 [facility] Comment on above: Order Comment: Speci men Type: BLOOD SPECIMEN Ordering Facility: [facility] Address: [address] [place] [address] Performed By: #### 5 7021-8 #### [facility] CLIA [id number] [address] [place] [address] [place] Monocytes (Bld) [#/Vol] 0.36 10*3/uL Normal <0.87 [facility] Comment on above: Order Comment: Speci men Type: BLOOD SPECIMEN Ordering Facility: [facility] Address: [address] [place] [address] Performed By: #### 5 7021-8 #### [facility] CLIA [id number] [address] [place] [address] [place] Monocytes/100 WBC (Bld) 5.8 % Normal [facility] Comment on above: Order Comment: Speci men Type: BLOOD SPECIMEN Ordering Facility: [facility] Address: [address] [place] [address] Performed By: #### 5 7021-8 #### [facility] CLIA [id number] [address] [place] [address] [place] Neutrophils (Bld) [#/Vol] 4.18 10*3/uL Normal 1.45-7.50 [facility] Comment on above: Order Comment: Speci men Type: BLOOD SPECIMEN Ordering Facility: [facility] Address: [address] [place] [address] Performed By: #### 5 7021-8 #### [facility] CLIA [id number] [address] [place] [address] [place] Neutrophils/100 WBC (Bld) 67.3 % Normal [facility] Comment on above: Order Comment: Speci men Type: BLOOD SPECIMEN Ordering Facility: [facility] Address: [address] [place] [address] Performed By: #### 5 7021-8 #### [facility] CLIA [id number] [address] [place] [address] [place] Nucleated RBC (Bld) [#/Vol] 10*3/uL Normal <0.01 [facility] Comment on above: Order Comment: Speci men Type: BLOOD SPECIMEN Ordering Facility: [facility] Address: [address] [place] [address] Performed By: #### 5 7021-8 #### [facility] CLIA [id number] [address] [place] [address] [place] Nucleated RBC/100 WBC (Bld) [Ratio] 0.0 /100 WBC Normal [facility] Comment on above: Order Comment: Speci men Type: BLOOD SPECIMEN Ordering Facility: [facility] Address: [address] [place] [address] Performed By: #### 5 7021-8 #### [facility] CLIA [id number] [address] [place] [address] [place] Platelet mean volume (Bld) [Entitic vol] 8.7 fL Low 9.0-12.7 [facility] Comment on above: Order Comment: Speci men Type: BLOOD SPECIMEN Ordering Facility: [facility] Address: [address] [place] [address] Performed By: #### 5 7021-8 #### [facility] CLIA [id number] [address] [place] [address] [place] Platelets (Bld) [#/Vol] 436 10*3/uL High 150-400 [facility] Comment on above: Order Comment: Speci men Type: BLOOD SPECIMEN Ordering Facility: [facility] Address: [address] [place] [address] Performed By: #### 5 7021-8 #### [facility] CLIA [id number] [address] [place] [address] [place] RBC (Bld) [#/Vol] 3.58 10*6/uL Low 3.90-5.20 [facility] Comment on above: Order Comment: Speci men Type: BLOOD SPECIMEN Ordering Facility: [facility] Address: [address] [place] [address] Performed By: #### 5 7021-8 #### [facility] CLIA [id number] [address] [place] [address] [place] WBC (Bld) [#/Vol] 6.21 10*3/uL Normal 3.70-11.00 [facility] Comment on above: Order Comment: Speci men Type: BLOOD SPECIMEN Ordering Facility: [facility] Address: [address] [place] [address] Performed By: #### 5 7021-8 #### [facility] CLIA [id number] [address] [place] [address] [place] Magnesium SerPl-mCncon 04-04 Magnesium [Mass/Vol] 2.1 mg/dL Normal 1.7-2.3 [facility] Comment on above: Order Comment: Speci men Type: BLOOD SPECIMENOrdering Facility: [facility] Address: [facility] [place] [address] Performed By: #### 2 4321-2, 03642-3, 2777-1 ####[facility] [id number] [address] NURSING PROGon 04-04-2022 NURSING PROG HNO ID: [id number] Author: Dipti Crowley RN Service: Nursing Author Type: Registered Nurse Type: Nursing Progress Note Filed: 04/04/2022 7:47 PM Note Text: Nursing Progress Note Patient Name: Mary Leal Patient Location: [address] __ Daily Note:Patient refusing further IVF. This note was completed by: Dipti Crowley [employer] NURSING PROG HNO ID: [id number] Author: Dipti Crowley RN Service: Nursing Author Type: Registered Nurse Type: Nursing Progress Note Filed: 04/04/2022 11:11 AM Note Text: Nursing Progress Note Patient Name: Mary Leal Patient Location: [address] __ Daily Note: Patient up in chair [...] notified, but post call. Will page SR front office assistant. Will continue to monitor. Call light in reach. This note was completed by: Dipti Langford [facility] Phosphate SerPl-mCncon 04-04 Phosphate [Mass/Vol] 3.2 mg/dL Normal 2.7-4.8 [facility] Comment on above: Order Comment: Speci men Type: BLOOD SPECIMENOrdering Facility: [facility] Address: [address] [place], [place] [phone] Performed By: #### 2 4321-2, 66390-9, 2777-1 ####[facility] [id number] [address] ALLIED HEALTHon 04-03-2022 ALLIED HEALTH HNO ID: [id number] Author: MALAIKA Martinez Service: ? Author Type: Musical Instrument Maker Or Repairer Type: Allied Health Filed: 04/03/2022 5:35 PM [...] Martinez April 03, 2022 5:35 PM Normal [facility] Basic metabolic 2000 panelon 04-03-2022 Anion gap [Moles/Vol] 10 mmol/L Normal 9-18 [facility] Comment on above: Order Comment: Speci men Type: BLOOD SPECIMENOrdering Facility: [facility] Address: [address] [place] [address] Performed By: #### B MP #### [place] [phone] Calcium [Mass/Vol] 8.4 mg/dL Low 8.5-10.2 [facility] Comment on above: Order Comment: Speci men Type: BLOOD SPECIMENOrdering Facility: [facility] Address: [address] [place] [address] Performed By: #### B MP #### [place] [phone] Chloride [Moles/Vol] 103 mmol/L Normal 97-105 [facility] Comment on above: Order Comment: Speci men Type: BLOOD SPECIMENOrdering Facility: [facility] Address: [address] [place] [address] Performed By: #### B MP #### [place] [phone] CO2 [Moles/Vol] 25 mmol/L Normal 22-30 [facility] Comment on above: Order Comment: Speci men Type: BLOOD SPECIMENOrdering Facility: [facility] Address: [address] [place] [address] Performed By: #### B MP #### [place] [phone] Creatinine [Mass/Vol] 0.60 mg/dL Normal 0.58-0.96 [facility] Comment on above: Order Comment: Speci men Type: BLOOD SPECIMENOrdering Facility: [facility] Address: [address] [place], [place] [address] Performed By: #### B MP #### [place] [phone] ESTIMATED GLOMERULAR FILTRATION RATE 110 mL/min/1.73m??? Normal >=60 [facility] Comment on above: Order Comment: Speci men Type: BLOOD SPECIMENOrdering Facility: [facility] Address: [address] [place], [place] [address] Result Comment: Mary mated Glomerular Filtration Rate [...] By: #### B MP #### [place] [phone] Glucose [Mass/Vol] 106 mg/dL High 74-99 [facility] Comment on above: Order Comment: Leanne terry Type: BLOOD SPECIMENOrdering Facility: [facility] Address: [address] [place] [phone] Result Comment: The [place] [employer] (ADA) provides guidance for cutoff [...] Standards of Medical Care in Diabetes 2016, [place] [employer]. Diabetes Care. 2016.39(Suppl 1). Performed By: #### B MP #### [place] [phone] Potassium [Moles/Vol] 3.3 mmol/L Low 3.7-5.1 [facility] Comment on above: Order Comment: Leanne terry Type: BLOOD SPECIMENOrdering Facility: [facility] Address: [address] [place] [address] Performed By: #### B MP #### [place] [phone] Sodium [Moles/Vol] 138 mmol/L Normal 136-144 [facility] Comment on above: Order Comment: Leanne [facility] Type: BLOOD SPECIMENOrdering Facility: [facility] Address: [address] [place] [phone] Performed By: #### B MP #### [place] [phone] Urea nitrogen [Mass/Vol] 4 mg/dL Low 05-26 [facility] Comment on above: Order Comment: Speci men Type: BLOOD SPECIMENOrdering Facility: [facility] Address: [address] [place] [address] Performed By: #### B MP #### [place] [id number] CBC W Auto Differential pane l (Bld)on 04-03-2022 Basophils (Bld) [#/Vol] 0.03 10*3/uL Normal <0.11 [facility] Comment on above: Order Comment: Speci men Type: BLOOD SPECIMENOrdering Facility: [facility] Address: [address] [place] [address] Performed By: #### B MP #### [place] [address] Basophils/100 WBC (Bld) 0.4 % Normal [facility] Comment on above: Order Comment: Speci men Type: BLOOD SPECIMENOrdering Facility: [facility] Address: [address] [place] [address] Performed By: #### B MP #### [place] [address] Differential cell count method Nom (Bld) Auto Normal [facility] Comment on above: Order Comment: Speci men Type: BLOOD SPECIMENOrdering Facility: [facility] Address: [address] [place] [address] Performed By: #### B MP #### [place] [address] Eosinophils (Bld) [#/Vol] 0.48 10*3/uL High <0.46 [facility] Comment on above: Order Comment: Speci men Type: BLOOD SPECIMENOrdering Facility: [facility] Address: [address] [place] [address] Performed By: #### B MP #### [place] [phone] Eosinophils/100 WBC (Bld) 6.5 % Normal [facility] Comment on above: Order Comment: Speci men Type: BLOOD SPECIMENOrdering Facility: [facility] Address: [address] [place] [address] Performed By: #### B MP #### [address] Erythrocyte distribution width (RBC) [Ratio] 12.5 % Normal 11.5-15.0 [facility] Comment on above: Order Comment: Speci men Type: BLOOD SPECIMENOrdering Facility: [facility] Address: [address] [place] [address] Performed By: #### B MP #### [place] [phone] Hematocrit (Bld) [Volume fraction] 29.5 % Low 36.0-46.0 [facility] Comment on above: Order Comment: Speci men Type: BLOOD SPECIMENOrdering Facility: [facility] Address: [address] [place] [address] Performed By: #### B MP #### [address] Hemoglobin (Bld) [Mass/Vol] 10.2 g/dL Low 11.5-15.5 [facility] Comment on above: Order Comment: Speci men Type: BLOOD SPECIMENOrdering Facility: [facility] Address: [address] [place] [address] Performed By: #### B MP #### [address] IMMATURE GRAN % 0.5 % Normal [facility] Comment on above: Order Comment: Speci men Type: BLOOD SPECIMENOrdering Facility: [facility] Address: [address] [place] [address] Performed By: #### B MP #### [place] [phone] IMMATURE GRAN ABS 0.04 k/uL Normal <0.10 [facility] Comment on above: Order Comment: Speci men Type: BLOOD SPECIMENOrdering Facility: [facility] Address: [address] [place] [address] Performed By: #### B MP #### [place] [phone] Lymphocytes (Bld) [#/Vol] 1.11 10*3/uL Normal 1.00-4.00 [facility] Comment on above: Order Comment: Speci men Type: BLOOD SPECIMENOrdering Facility: [facility] Address: [address] [place] [address] Performed By: #### B MP #### [phone] Lymphocytes/100 WBC (Bld) 15.0 % Normal [facility] Comment on above: Order Comment: Speci men Type: BLOOD SPECIMENOrdering Facility: [facility] Address: [address] [place] [address] Performed By: #### B MP #### [place] [phone] MCH (RBC) [Entitic mass] 30.1 pg Normal 26.0-34.0 [facility] Comment on above: Order Comment: Speci men Type: BLOOD SPECIMENOrdering Facility: [facility] Address: [address] [place] [address] Performed By: #### B MP #### [phone] MCHC (RBC) [Mass/Vol] 34.6 g/dL Normal 30.5-36.0 [facility] Comment on above: Order Comment: Speci men Type: BLOOD SPECIMENOrdering Facility: [facility] Address: [address] [place] [address] Performed By: #### B MP #### [place] [phone] MCV (RBC) [Entitic vol] 87.0 fL Normal 80.0-100.0 [facility] Comment on above: Order Comment: Speci men Type: BLOOD SPECIMENOrdering Facility: [facility] Address: [address] [place] [address] Performed By: #### B MP #### [place] [address] Monocytes (Bld) [#/Vol] 0.46 10*3/uL Normal <0.87 [facility] Comment on above: Order Comment: Speci men Type: BLOOD SPECIMENOrdering Facility: [facility] Address: [address] [place] [address] Performed By: #### B MP #### [place] [address] Monocytes/100 WBC (Bld) 6.2 % Normal [facility] Comment on above: Order Comment: Speci men Type: BLOOD SPECIMENOrdering Facility: [facility] Address: [address] [place] [address] Performed By: #### B MP #### [place] [address] Neutrophils (Bld) [#/Vol] 5.27 10*3/uL Normal 1.45-7.50 [facility] Comment on above: Order Comment: Speci men Type: BLOOD SPECIMENOrdering Facility: [facility] Address: [address] [place] [address] Performed By: #### B MP #### [phone] Neutrophils/100 WBC (Bld) 71.4 % Normal [facility] Comment on above: Order Comment: Speci men Type: BLOOD SPECIMENOrdering Facility: [facility] Address: [address] [place] [address] Performed By: #### B MP #### [place] [address] Nucleated RBC (Bld) [#/Vol] 10*3/uL Normal <0.01 [facility] Comment on above: Order Comment: Speci men Type: BLOOD SPECIMENOrdering Facility: [facility] Address: [address] [place] [address] Performed By: #### B MP #### [place] [address] Nucleated RBC/100 WBC (Bld) [Ratio] 0.0 /100 WBC Normal [facility] Comment on above: Order Comment: Speci men Type: BLOOD SPECIMENOrdering Facility: [facility] Address: [address] [place] [address] Performed By: #### B MP #### [place] [phone] Platelet mean volume (Bld) [Entitic vol] 8.6 fL Low 9.0-12.7 [facility] Comment on above: Order Comment: Speci men Type: BLOOD SPECIMENOrdering Facility: [facility] Address: [address] [place] [address] Performed By: #### B MP #### [place] [phone] Platelets (Bld) [#/Vol] 342 10*3/uL Normal 150-400 [facility] Comment on above: Order Comment: Speci men Type: BLOOD SPECIMENOrdering Facility: [facility] Address: [address] [place] [address] Performed By: #### B MP #### [place] [phone] RBC (Bld) [#/Vol] 3.39 10*6/uL Low 3.90-5.20 [facility] Comment on above: Order Comment: Speci men Type: BLOOD SPECIMENOrdering Facility: [facility] Address: [address] [place] [address] Performed By: #### B MP #### [place] [address] WBC (Bld) [#/Vol] 7.39 10*3/uL Normal 3.70-11.00 [facility] Comment on above: Order Comment: Speci men Type: BLOOD SPECIMENOrdering Facility: [facility] Address: [address] [place] [address] Performed By: #### B #### [place] [id number] [place] [id number] CONSULT PROGon 04-03-2022 CONSULT PROG HNO ID: [id number] Author: Sarwat Huddleston PA-C Service: Pain Management Author Type: Physician Fiberglass Bonding Machine Tender Type: Consult Progress Note Filed: 04/03/2022 [...] appears comf (more content not included)... Normal [facility] CT ABD/PEL W IVCONon 022 [...] Lower thorax: Visualized lung bases are clear. Wood Block Artist (topogram) images: No additional findings. IMPRESSION: Postsurgical [...] collection is present in the lower pelvis Museum Preparator: [facility] Transcribe Date/Time: Apr 03 2022 9:00P Dictated by : SHELBY ESPINOSA MD This examination was interpreted and the report reviewed and electronically signed by: SHELBY ESPINOSA MD on Apr 03 2022 9:12PM EST [id number] Normal [facility] Magnesium SerPl-mCncon 04-03 Magnesium [Mass/Vol] 1.6 mg/dL Low 1.7-2.3 [facility] Comment on above: Order Comment: Speci men Type: BLOOD SPECIMENOrdering Facility: [facility] Address: [address] [place] [phone] Performed By: #### B #### [place] [address] NURSING PROGon 04-03-2022 NURSING PROG HNO ID: [id number] Author: Beto Ford RN Service: ? Author Type: Registered Nurse Type: Nursing Progress Note Filed: 04/03/2022 9:39 PM Note Text: Nursing Progress Note Patient Name: Mary Leal Patient Location: __ Daily Note: 2130: Pt declined to have all oral medications. They just go right through me. I cannot take them. . Made RN aware. This note was completed by: Beto Ford [facility] NURSING PROG HNO ID: [id number] Author: Dipti Crowley RN Service: Nursing Author [...] with no success. SR paged with events ([phone]). Awaiting further orders. This note was completed by: Dipti Crowley [facility] NURSING PROG HNO ID: [id number] Author: Dipti Crowley RN Service: Nursing Author [...] This note was completed by: Dipti Crowley [facility] NURSING PROG HNO ID: [id number] Author: Chava Remy RN Service: PICC Team Author Type: Registered Nurse Type: Nursing Progress Note Filed: 04/03/2022 8:37 AM Note Text: PICC/VASCULAR ACCESS PROGRESS NOTE SERVICE DATE: 04/03/2022 SERVICE TIME: 30 Called to floor to start difficult PIV. PIV started in the left for arm # 22 angio. Brisk blood return noted and flushed with 10 ml normal saline. No complications noted. SIGNATURE: Chava Remy RN PATIENT NAME: Mary Leal DATE: April 03, 2022 TIME: 8:37 AM PAGER/CONTACT #: [facility] NURSING PROG HNO ID: [id number] Author: Kev Leone RN Service: ? Author Type: Registered Nurse Type: Nursing Progress Note Filed: 04/03/2022 3:50 AM Note Text: Nursing Progress Note Patient Name: Mary Leal Patient Location: /PO6A-12 __ Daily Note: 2100: Pt refusing all PO meds at this time, states she's concerned that she's not digesting them properly. Paan currently being controlled with bilateral blocks and PRN IV pain medication. This note was completed by: Kev Leone [facility] [employer] [facility] Phosphate SerPl-mCncon 04-03 Phosphate [Mass/Vol] 3.3 mg/dL Normal 2.7-4.8 [facility] Comment on above: Order Comment: Speci men Type: BLOOD SPECIMENOrdering Facility: [facility] Address: [address] [place], [place] [phone] Performed By: #### B MP #### [place] [id number] [place] [address] ALLIED HEALTHon 04-02-2022 ALLIED HEALTH HNO ID: [id number] Author: RT Ban(Asiya) Service: Radiology Author Type: [...] RT Ban(Asiya) April 02, 2022 9:12 AM [facility] CONSULT PROGon 04-02-2022 CONSULT PROG HNO ID: [id number] Author: Sarwat Huddleston PA-C Service: Pain Management Author Type: Physician Fiberglass Bonding Machine Tender Type: Consult Progress Note Filed: 04/02/2022 [...] 29.3 5 (more content not included)... Normal [facility] NURSING PROGon 04-02-2022 NURSING PROG HNO ID: [id number] Author: Dipti Crowley, RN Service: Nursing Author Type: Registered Nurse Type: Nursing Progress Note Filed: 04/02/2022 1:23 PM Note Text: Nursing Progress Note Patient Name: Mary Leal Patient Location: [place] [address]/[id number] __ Daily Note: Patient AANDOx3. VSS. RA POx. D51/2NS at 75 ml/hr. B/L Tap Block dressings CDI. Old ostomy with ABD and tape, CDI. Transverse and lap sites QUALITY ASSURANCE TEST PROGRAM MANAGER with glue. NPO status. Medicated with IV [...] This note was completed by: Dipti Langford [facility] XR ABDOMEN 1V SUPINEon 04-02 XR [...] may be of help for further evaluation. Museum Preparator: [facility] Transcribe Date/Time: Apr 02 2022 9:16A Dictated by : JOAQUIN BRYANT MD This examination was interpreted and the report reviewed and electronically signed by: JOAQUIN BRYANT MD on Apr 02 2022 9:19AM EST [id number] Normal [facility] Basic metabolic 2000 panelon 04-01-2022 Anion gap [Moles/Vol] 9 mmol/L Normal 9-18 [facility] Comment on above: Order Comment: Speci men Type: BLOOD SPECIMENOrdering Facility: [facility] Address: [address] [place] [address] Performed By: #### B MP #### [place] [address] Calcium [Mass/Vol] 7.9 mg/dL Low 8.5-10.2 [facility] Comment on above: Order Comment: Speci men Type: BLOOD SPECIMENOrdering Facility: [facility] Address: [address] [place] [phone] Performed By: #### B MP #### [place] [address] Chloride [Moles/Vol] 106 mmol/L High 97-105 [facility] Comment on above: Order Comment: Speci men Type: BLOOD SPECIMENOrdering Facility: [facility] Address: [address] [place] [address] Performed By: #### B MP #### [place] [phone] CO2 [Moles/Vol] 26 mmol/L Normal 22-30 [facility] Comment on above: Order Comment: Speci men Type: BLOOD SPECIMENOrdering Facility: [facility] Address: [address] [place] [address] Performed By: #### B MP #### [phone] Creatinine [Mass/Vol] 0.68 mg/dL Normal 0.58-0.96 [facility] Comment on above: Order Comment: Speci men Type: BLOOD SPECIMENOrdering Facility: [facility] Address: [address] [place] [address] Performed By: #### B MP #### [place] [phone] ESTIMATED GLOMERULAR FILTRATION RATE 107 mL/min/1.73m??? Normal >=60 [facility] Comment on above: Order Comment: Speci men Type: BLOOD SPECIMENOrdering Facility: [facility] Address: [address] [place] [address] Result Comment: Mary mated Glomerular Filtration Rate [...] By: #### B MP #### [place] [phone] Glucose [Mass/Vol] 99 mg/dL Normal 74-99 [facility] Comment on above: Order Comment: Speci men Type: BLOOD SPECIMENOrdering Facility: [facility] Address: [address] [place] [address] Result Comment: The [place] Diabetes Association (ADA) provides guidance for cutoff [...] Standards of Medical Care in Diabetes 2016, [place] [employer]. Diabetes Care. 2016.39(Suppl 1). Performed By: #### B MP #### [place] [phone] Potassium [Moles/Vol] 3.7 mmol/L Normal 3.7-5.1 [facility] Comment on above: Order Comment: Speci men Type: BLOOD SPECIMENOrdering Facility: [facility] Address: [address] [place] [address] Performed By: #### B MP #### [phone] Sodium [Moles/Vol] 141 mmol/L Normal 136-144 [facility] Comment on above: Order Comment: Speci men Type: BLOOD SPECIMENOrdering Facility: [facility] Address: [address] [place] [address] Performed By: #### B MP #### [place] [phone] Urea nitrogen [Mass/Vol] 4 mg/dL Low - [facility] Comment on above: Order Comment: Speci men Type: BLOOD SPECIMENOrdering Facility: [facility] Address: [address] [place] [address] Performed By: #### B MP #### [phone] CBC panel Auto (Bld)on 04-01 Erythrocyte distribution width (RBC) [Ratio] 12.4 % Normal 11.5-15.0 [facility] Comment on above: Order Comment: Speci men Type: BLOOD SPECIMEN [facility] Address: [address] [place] [address] Performed By: #### 5 8410-2 #### [facility] CLIA [id number] [address] [place] [address] OF [facility] Hematocrit (Bld) [Volume fraction] 29.3 % Low 36.0-46.0 [facility] Comment on above: Order Comment: Speci men Type: BLOOD SPECIMEN [facility] Address: [address] [place] [address] Performed By: #### 5 8410-2 #### [facility] CLIA [id number] [address] [place] [address] [place] [employer] Hemoglobin (Bld) [Mass/Vol] 9.6 g/dL Low 11.5-15.5 [facility] Comment on above: Order Comment: Speci men Type: BLOOD SPECIMEN [facility] Address: [address] [place] [address] Performed By: #### 5 8410-2 #### [facility] CLIA [id number] [address] [place] [address] [place] MCH (RBC) [Entitic mass] 29.4 pg Normal 26.0-34.0 [facility] Comment on above: Order Comment: Speci men Type: BLOOD SPECIMEN [facility] Address: [address] [place] [address] Performed By: #### 5 8410-2 #### [facility] CLIA [id number] [address] [place] [address] [place] MCHC (RBC) [Mass/Vol] 32.8 g/dL Normal 30.5-36.0 [facility] Comment on above: Order Comment: Speci men Type: BLOOD SPECIMEN [facility] Address: [address] [place] [address] Performed By: #### 5 8410-2 #### [facility] CLIA [id number] [address] [place] [address] [place] MCV (RBC) [Entitic vol] 89.9 fL Normal 80.0-100.0 [facility] Comment on above: Order Comment: Speci men Type: BLOOD SPECIMEN [facility] Address: [address] [place] [address] Performed By: #### 5 8410-2 #### [facility] CLIA [id number] [address] [place] [address] [place] Nucleated RBC (Bld) [#/Vol] 10*3/uL Normal <0.01 [facility] Comment on above: Order Comment: Speci men Type: BLOOD SPECIMEN [facility] Address: [address] [place] [address] Performed By: #### 5 8410-2 #### [facility] CLIA [id number] [address] [place] [address] [place] Platelet mean volume (Bld) [Entitic vol] 8.9 fL Low 9.0-12.7 [facility] Comment on above: Order Comment: Speci men Type: BLOOD SPECIMEN [facility] Address: [address] [place] [address] Performed By: #### 5 8410-2 #### [facility] CLIA [id number] [address] [place] [address] [place] Platelets (Bld) [#/Vol] 282 10*3/uL Normal 150-400 [facility] Comment on above: Order Comment: Speci men Type: BLOOD SPECIMEN [facility] Address: [address] [place] [address] Performed By: #### 5 8410-2 #### [facility] CLIA [id number] [address] [place] [address] [place] RBC (Bld) [#/Vol] 3.26 10*6/uL Low 3.90-5.20 [facility] Comment on above: Order Comment: Speci men Type: BLOOD SPECIMEN [facility] Address: [address] [address] Performed By: #### 5 8410-2 #### [facility] CLIA [id number] [address] [place] [address] [place] [facility] WBC (Bld) [#/Vol] 7.39 10*3/uL Normal 3.70-11.00 [facility] Comment on above: Order Comment: Speci men Type: BLOOD SPECIMEN [facility] Address: [address] [place] [address] Performed By: #### 5 8410-2 #### [facility] CLIA [id number] [place] [facility] CONSULT PROGon 04-01-2022 CONSULT PROG HNO ID: [id number] Author: Joslyn Jain APRN.CNP Service: Pain Management [...] 0.67 Sod (more content not included)... Normal [facility] Magnesium SerPl-mCncon 04-01 Magnesium [Mass/Vol] 1.7 mg/dL Normal 1.7-2.3 [facility] Comment on above: Order Comment: Speci men Type: BLOOD SPECIMENOrdering Facility: [facility] Address: [address] [place] [address] [place] [address] Performed By: #### B MP #### [facility] [address] [place] [address] NURSING PROGon 04-01-2022 NURSING PROG HNO ID: [id number] Author: Tez Gu RN Service: ? Author Type: Registered Nurse Type: Nursing Progress Note Filed: 04/01/2022 9:56 PM Note Text: Nursing Progress Note Patient Name: Mary Leal Patient Location: [facility] __ Daily Note:04/01/222038 Pt is alert and oriented x3. Surgical sites intact. Tap blocks x2 intact. Made SROC aware of Pt experiencing sharp/stabbing pain in abdomen, rating 9/10. SROC recommended use of PRN Dilaudid This note was completed by: Tez Gu [facility] NURSING PROG HNO ID: [id number] Author: Tez Gu RN Service: ? Author Type: Registered Nurse Type: Nursing Progress Note Filed: 04/01/2022 1:52 AM Note Text: Nursing Progress Note Patient Name: Mary Leal Patient Location: __ Daily Note:03/31/222030 Pt is alert and oriented x3. Surgical sites intact. Nerve blocks x2 intact. This note was completed by: Tez Gu Normal [facility] Phosphate SerPl-mCncon 04-01 Phosphate [Mass/Vol] 2.8 mg/dL Normal 2.7-4.8 [facility] Comment on above: Order Comment: Speci men Type: BLOOD SPECIMENOrdering Facility: [facility] Address: [address] [place] [address] Performed By: #### B MP #### [place] [address] Basic metabolic 2000 panelon 03-31-2022 Anion gap [Moles/Vol] 10 mmol/L Normal 9-18 [facility] Comment on above: Order Comment: Speci men Type: BLOOD SPECIMEN [facility] Address: [address] [place] [address] Performed By: #### 5 8410-2 #### [facility] CLIA [id number] [address] [place] [address] [place] Calcium [Mass/Vol] 8.4 mg/dL Low 8.5-10.2 [facility] Comment on above: Order Comment: Speci men Type: BLOOD SPECIMEN [facility] Address: [address] [place] [address] Performed By: #### 5 8410-2 #### [facility] CLIA [id number] [address] [place] [address] [place] Chloride [Moles/Vol] 107 mmol/L High 97-105 [facility] Comment on above: Order Comment: Speci men Type: BLOOD SPECIMEN [facility] Address: [address] [place] [address] Performed By: #### 5 8410-2 #### [facility] CLIA [id number] [address] [place] [address] [place] CO2 [Moles/Vol] 23 mmol/L Normal 22-30 [facility] Comment on above: Order Comment: Speci men Type: BLOOD SPECIMEN [facility] Address: [address] Performed By: #### 5 8410-2 #### [facility] CLIA [id number] [address] [place] [address] [place] Creatinine [Mass/Vol] 0.67 mg/dL Normal 0.58-0.96 [facility] Comment on above: Order Comment: Leanne terry Type: BLOOD SPECIMEN [facility] Address: [address] [place] [address] Performed By: #### 5 8410-2 #### [facility] CLIA [id number] [address] [place] [address] [place] ESTIMATED GLOMERULAR FILTRATION RATE 107 mL/min/1.73m??? Normal >=60 [facility] Comment on above: Order Comment: Leanne terry Type: BLOOD SPECIMEN [facility] Address: [address] [place] [address] Result Comment: Mary mated Glomerular Filtration Rate [...] GFR. Performed By: #### 5 8410-2 #### [facility] CLIA [id number] [address] [place] [address] [place] Glucose [Mass/Vol] 84 mg/dL Normal 74-99 [facility] Comment on above: Order Comment: Leanne terry Type: BLOOD SPECIMEN [facility] Address: [address] [place] [address] Result Comment: The [place] [employer] (ADA) provides guidance for cutoff [...] Standards of Medical Care in Diabetes 2016, [place] [employer]. Diabetes Care. 2016.39(Suppl 1). Performed By: #### 5 8410-2 #### [facility] CLIA [id number] [address] [place] [address] [place] Potassium [Moles/Vol] 3.8 mmol/L Normal 3.7-5.1 [facility] Comment on above: Order Comment: Speci men Type: BLOOD SPECIMEN [facility] Address: [address] [place] [address] Performed By: #### 5 8410-2 #### [facility] CLIA [id number] [address] [place] [address] [place] Sodium [Moles/Vol] 140 mmol/L Normal 136-144 [facility] Comment on above: Order Comment: Speci men Type: BLOOD SPECIMEN [facility] Address: [address] [place] [address] Performed By: #### 5 8410-2 #### [facility] CLIA [id number] [address] [place] [address] [place] Urea nitrogen [Mass/Vol] 11 mg/dL Normal 7-21 [facility] Comment on above: Order Comment: Everettei men Type: BLOOD SPECIMEN [facility] Address: [address] [place] [address] Performed By: #### 5 8410-2 #### [facility] CLIA [id number] [address] [place] [address] [place] CBC W Auto Differential pane l (Bld)on 03-31-2022 Basophils (Bld) [#/Vol] 0.03 10*3/uL Normal <0.11 [facility] Comment on above: Order Comment: Speci men Type: BLOOD SPECIMEN [facility] Address: [address] [place] [address] Performed By: #### 5 7021-8 #### [facility] CLIA [id number] [address] [place] [address] [place] Basophils/100 WBC (Bld) 0.4 % Normal [facility] Comment on above: Order Comment: Speci men Type: BLOOD SPECIMEN [facility] Address: [address] [place] [address] Performed By: #### 5 7021-8 #### [facility] CLIA [id number] [address] [place] [address] [place] Differential cell count method Nom (Bld) Auto Normal [facility] Comment on above: Order Comment: Speci men Type: BLOOD SPECIMEN [facility] Address: [address] [place] [address] Performed By: #### 5 7021-8 #### [facility] CLIA [id number] [address] [place] [address] [place] Eosinophils (Bld) [#/Vol] 0.38 10*3/uL Normal <0.46 [facility] Comment on above: Order Comment: Speci men Type: BLOOD SPECIMEN [facility] Address: [address] [place] [address] Performed By: #### 5 7021-8 #### [facility] CLIA [id number] [address] [place] [address] [place] Eosinophils/100 WBC (Bld) 4.4 % Normal [facility] Comment on above: Order Comment: Speci men Type: BLOOD SPECIMEN [facility] Address: [address] [place] [address] Performed By: #### 5 7021-8 #### [facility] CLIA [id number] [address] [place] [address] [place] Erythrocyte distribution width (RBC) [Ratio] 12.6 % Normal 11.5-15.0 [facility] Comment on above: Order Comment: Speci men Type: BLOOD SPECIMEN [facility]: [facility] Address: [address] [place] [address] Performed By: #### 5 7021-8 #### [facility] CLIA [id number] [address] [place] [address] Hematocrit (Bld) [Volume fraction] 30.0 % Low 36.0-46.0 [facility] Comment on above: Order Comment: Speci men Type: BLOOD SPECIMEN [facility] Address: [address] [place] [address] Performed By: #### 5 7021-8 #### [facility] CLIA [id number] [address] [place] [address] [place] [employer] Hemoglobin (Bld) [Mass/Vol] 9.9 g/dL Low 11.5-15.5 [facility] Comment on above: Order Comment: Speci men Type: BLOOD SPECIMEN [facility]: [facility] Address: [address] [place] [address] Performed By: #### 5 7021-8 #### [facility] CLIA [id number] [address] [place] [address] [place] IMMATURE GRAN % 0.4 % Normal [facility] Comment on above: Order Comment: Speci men Type: BLOOD SPECIMEN [facility] Address: [address] [place] [address] Performed By: #### 5 7021-8 #### [facility] CLIA [id number] [address] [place] [address] IMMATURE GRAN ABS 0.03 k/uL Normal <0.10 [facility] Comment on above: Order Comment: Speci men Type: BLOOD SPECIMEN [facility] Address: [address] [place] [address] Performed By: #### 5 7021-8 #### [facility] CLIA [id number] [address] [place] [address] Lymphocytes (Bld) [#/Vol] 1.24 10*3/uL Normal 1.00-4.00 [facility] Comment on above: Order Comment: Speci men Type: BLOOD SPECIMEN [facility] Address: [address] [place] [address] Performed By: #### 5 7021-8 #### [facility] CLIA [id number] [address] [place] [address] [place] Lymphocytes/100 WBC (Bld) 14.5 % Normal [facility] Comment on above: Order Comment: Speci men Type: BLOOD SPECIMEN [facility] Address: [address] [place] [address] Performed By: #### 5 7021-8 #### [facility] CLIA [id number] [address] [place] [address] [place] MCH (RBC) [Entitic mass] 29.6 pg Normal 26.0-34.0 [facility] Comment on above: Order Comment: Speci men Type: BLOOD SPECIMEN [facility] [facility] Address: [address] [place] [address] Performed By: #### 5 7021-8 #### [facility] CLIA [id number] [address] [place] [address] [place] MCHC (RBC) [Mass/Vol] 33.0 g/dL Normal 30.5-36.0 [facility] Comment on above: Order Comment: Speci men Type: BLOOD SPECIMEN Ordering Facility: [facility] Address: [address] [place] [address] Performed By: #### 5 7021-8 #### [facility] CLIA [id number] [address] [place] [address] [place] MCV (RBC) [Entitic vol] 89.8 fL Normal 80.0-100.0 [facility] Comment on above: Order Comment: Speci men Type: BLOOD SPECIMEN Ordering Facility: [facility] Address: [address] [place] [address] Performed By: #### 5 7021-8 #### [facility] CLIA [id number] [address] [place] [address] [place] Monocytes (Bld) [#/Vol] 0.48 10*3/uL Normal <0.87 [facility] Comment on above: Order Comment: Speci men Type: BLOOD SPECIMEN Ordering Facility: [facility] Address: [address] [place] [address] Performed By: #### 5 7021-8 #### [facility] CLIA [id number] [address] [place] [address] [place] Monocytes/100 WBC (Bld) 5.6 % Normal [facility] Comment on above: Order Comment: Speci men Type: BLOOD SPECIMEN Ordering Facility: [facility] Address: [address] [place] [address] Performed By: #### 5 7021-8 #### [facility] CLIA [id number] [address] [place] [address] [place] Neutrophils (Bld) [#/Vol] 6.41 10*3/uL Normal 1.45-7.50 [facility] Comment on above: Order Comment: Speci men Type: BLOOD SPECIMEN Ordering Facility: [facility] Address: [address] [place] [address] Performed By: #### 5 7021-8 #### [facility] CLIA [id number] [address] [place] [address] [place] Neutrophils/100 WBC (Bld) 74.7 % Normal [facility] Comment on above: Order Comment: Speci men Type: BLOOD SPECIMEN Ordering Facility: [facility] Address: [address] [place] [address] Performed By: #### 5 7021-8 #### [facility] CLIA [id number] [address] [place] [address] [place] Nucleated RBC (Bld) [#/Vol] 10*3/uL Normal <0.01 [facility] Comment on above: Order Comment: Speci men Type: BLOOD SPECIMEN Ordering Facility: [facility] Address: [address] [place] [address] Performed By: #### 5 7021-8 #### [facility] CLIA [id number] [address] [place] [address] [place] Nucleated RBC/100 WBC (Bld) [Ratio] 0.0 /100 WBC Normal [facility] Comment on above: Order Comment: Speci men Type: BLOOD SPECIMEN Ordering Facility: [facility] Address: [address] [place], [place] [address] Performed By: #### 5 7021-8 #### [facility] CLIA [id number] [address] [place] [address] [place] Platelet mean volume (Bld) [Entitic vol] 9.0 fL Normal 9.0-12.7 [facility] Comment on above: Order Comment: Speci men Type: BLOOD SPECIMEN Ordering Facility: [facility] Address: [address] [place] [address] Performed By: #### 5 7021-8 #### [facility] CLIA [id number] [address] [place] [address] [place] Platelets (Bld) [#/Vol] 246 10*3/uL Normal 150-400 [facility] Comment on above: Order Comment: Speci men Type: BLOOD SPECIMEN Ordering Facility: [facility] Address: [address] [place], [place] [address] Performed By: #### 5 7021-8 #### [facility] CLIA [id number] [address] [place] [address] [place] RBC (Bld) [#/Vol] 3.34 10*6/uL Low 3.90-5.20 [facility] Comment on above: Order Comment: Speci men Type: BLOOD SPECIMEN Ordering Facility: [facility] Address: [address] [place], [place] [address] Performed By: #### 5 7021-8 #### [facility] CLIA [id number] [address] [place] [address] [place] WBC (Bld) [#/Vol] 8.57 10*3/uL Normal 3.70-11.00 [facility] Comment on above: Order Comment: Speci men Type: BLOOD SPECIMEN Ordering Facility: [facility] Address: [address] [place], [place] [address] Performed By: #### 5 7021-8 #### [facility] [id number] [address] [place] [address] [place] CONSULT PROGon 03-31-2022 CONSULT PROG HNO ID: [id number] Author: Joslyn Jain APRN.KWESI Service: Pain Management [...] AND U (more content not included)... Normal [facility] Magnesium SerPl-mCncon 03-31 Magnesium [Mass/Vol] 1.6 mg/dL Low 1.7-2.3 [facility] Comment on above: Order Comment: Speci men Type: BLOOD SPECIMEN Ordering Facility: [facility] Address: [address] [place] [address] Performed By: #### 5 8410-2 #### [facility] CLIA [id number] [address] [place] [address] [place] NURSING PROGon 03-31-2022 NURSING PROG HNO ID: [id number] Author: Daisy Amaya RN Service: Nursing Author [...] This note was completed by: Daisy Amaya [employer] NURSING PROG HNO ID: [id number] Author: Mariluz Carnes RN Service: Nursing Author Type: Registered Nurse Type: Nursing Progress Note Filed: 03/30/2022 11:47 PM Note Text: Nursing Progress Note Patient Name: Mary Leal Patient Location: / __ Daily Note: Pt's BP 90/52. Patient asymptomatic. Surgery made aware. Order in for [facility] LR 500CC's. This note was completed by: Mariluz Carnes [employer] [facility] [employer] Phosphate SerPl-mCncon 03-31 Phosphate [Mass/Vol] 2.7 mg/dL Normal 2.7-4.8 [facility] Comment on above: Order Comment: Speci men Type: BLOOD SPECIMEN Ordering Facility: [facility] Address: [address] [place] [address] [place] [address] Performed By: #### 5 3729-2 #### [facility] CLIA [id number] [address] [place] [address] [place] Basic metabolic 2000 panelon 03-30-2022 Anion gap [Moles/Vol] 10 mmol/L Normal 9-18 [facility] Comment on above: Order Comment: Speci men Type: BLOOD SPECIMEN Ordering Facility: [facility] Address: [address] [place] [address] Performed By: #### 1 9123-9, 27705-06, 35101-0 #### [facility] CLIA [id number] [address] [place] [address] [place] Calcium [Mass/Vol] 8.5 mg/dL Normal 8.5-10.2 [facility] Comment on above: Order Comment: Speci men Type: BLOOD SPECIMEN Ordering Facility: [facility] Address: [address] [place] [address] Performed By: #### 1 9123-9, 27705-06, 33782-9 #### [facility] CLIA [id number] [address] [place] [address] [place] Chloride [Moles/Vol] 103 mmol/L Normal 97-105 [facility] Comment on above: Order Comment: Speci men Type: BLOOD SPECIMEN Ordering Facility: [facility] Address: [address] [place] [address] Performed By: #### 1 9123-9, 27705-06, 84076-1 #### [facility] CLIA [id number] [address] [place] [address] [place] CO2 [Moles/Vol] 24 mmol/L Normal 22-30 [facility] Comment on above: Order Comment: Speci men Type: BLOOD SPECIMEN Ordering Facility: [facility] Address: [address] [place] [address] Performed By: #### 1 9123-9, 2777, 53600-1 #### [facility] CLIA [id number] [address] [place] [address] [place] Creatinine [Mass/Vol] 0.69 mg/dL Normal 0.58-0.96 [facility] Comment on above: Order Comment: Leanne terry Type: BLOOD SPECIMEN Ordering Facility: [facility] Address: [address] [place] [address] Performed By: #### 1 9123-9, 2777-1, 75983-4 #### [facility] CLIA [id number] [address] [place] [address] [place] ESTIMATED GLOMERULAR FILTRATION RATE 107 mL/min/1.73m??? Normal >=60 [facility] Comment on above: Order Comment: Leanne terry Type: BLOOD SPECIMEN Ordering Facility: [facility] Address: [address] [place] [address] Result Comment: Mary mated Glomerular Filtration Rate [...] GFR. Performed By: #### 1 9123-9, 2777-1, 50986-7 #### [facility] CLIA [id number] [address] [place] [address] [place] Glucose [Mass/Vol] 117 mg/dL High 74-99 [facility] Comment on above: Order Comment: Leanne terry Type: BLOOD SPECIMEN Ordering Facility: [facility] Address: [address] [place] [address] Result Comment: The [place] [employer] (ADA) provides guidance for cutoff [...] Standards of Medical Care in Diabetes 2016, [place] [employer]. Diabetes Care. 2016.39(Suppl 1). Performed By: #### 1 9123-9, 2777-1, 05289-1 #### [facility] CLIA [id number] [address] [place] [address] [place] Potassium [Moles/Vol] 3.9 mmol/L Normal 3.7-5.1 [facility] Comment on above: Order Comment: Speci men Type: BLOOD SPECIMEN Ordering Facility: [facility] Address: [address] [address] Performed By: #### 1 9123-9, 2777-, 56442-3 #### [facility] CLIA [id number] [address] [place] [address] [place] Sodium [Moles/Vol] 137 mmol/L Normal 136-144 [facility] Comment on above: Order Comment: Speci men Type: BLOOD SPECIMEN Ordering Facility: [facility] Address: [address] [place] [address] Performed By: #### 1 9123-9, 27705-06, 02245-7 #### [facility] CLIA [id number] [address] [place] [address] [place] Urea nitrogen [Mass/Vol] 13 mg/dL Normal 7-21 [facility] Comment on above: Order Comment: Speci men Type: BLOOD SPECIMEN Ordering Facility: [facility] Address: [address] [address] Performed By: #### 1 9123-9, 27705-06, 46651-2 #### [facility] CLIA [id number] [address] [place] [address] [place] CBC panel Auto (Bld)on 03-30 Erythrocyte distribution width (RBC) [Ratio] 12.8 % Normal 11.5-15.0 [facility] Comment on above: Order Comment: Speci men Type: BLOOD SPECIMEN Ordering Facility: [facility] Address: [address] [place] [address] Performed By: #### 5 8410-2 #### [facility] CLIA [id number] [address] [place] [address] [place] Hematocrit (Bld) [Volume fraction] 35.0 % Low 36.0-46.0 [facility] Comment on above: Order Comment: Speci men Type: BLOOD SPECIMEN Ordering Facility: [facility] Address: [address] [place] [address] Performed By: #### 5 8410-2 #### [facility] CLIA [id number] [address] [place] [address] [place] Hemoglobin (Bld) [Mass/Vol] 11.8 g/dL Normal 11.5-15.5 [facility] Comment on above: Order Comment: Speci men Type: BLOOD SPECIMEN Ordering Facility: [facility] Address: [address] [place] [address] Performed By: #### 5 8410-2 #### [facility] CLIA [id number] [address] [place] [address] [place] [facility] MCH (RBC) [Entitic mass] 30.6 pg Normal 26.0-34.0 [facility] Comment on above: Order Comment: Speci men Type: BLOOD SPECIMEN Ordering Facility: [facility] Address: [address] [place] [address] Performed By: #### 5 8410-2 #### [facility] CLIA [id number] [address] [place] [address] [place] MCHC (RBC) [Mass/Vol] 33.7 g/dL Normal 30.5-36.0 [facility] Comment on above: Order Comment: Speci men Type: BLOOD SPECIMEN Ordering Facility: [facility] Address: [address] [place] [address] Performed By: #### 5 8410-2 #### [facility] CLIA [id number] [address] [place] [address] MCV (RBC) [Entitic vol] 90.7 fL Normal 80.0-100.0 [facility] Comment on above: Order Comment: Speci men Type: BLOOD SPECIMEN Ordering Facility: [facility] Address: [address] [place] [address] Performed By: #### 5 8410-2 #### [facility] CLIA [id number] [address] [place] [address] [place] Nucleated RBC (Bld) [#/Vol] 10*3/uL Normal <0.01 [facility] Comment on above: Order Comment: Speci men Type: BLOOD SPECIMEN Ordering Facility: [facility] Address: [address] [place] [address] Performed By: #### 5 8410-2 #### [facility] CLIA [id number] [address] [place] [address] [place] Platelet mean volume (Bld) [Entitic vol] 8.9 fL Low 9.0-12.7 [facility] Comment on above: Order Comment: Speci men Type: BLOOD SPECIMEN Ordering Facility: [facility] Address: [address] [place] [address] Performed By: #### 5 8410-2 #### [facility] CLIA [id number] [address] [place] [address] [place] Platelets (Bld) [#/Vol] 293 10*3/uL Normal 150-400 [facility] Comment on above: Order Comment: Speci men Type: BLOOD SPECIMEN Ordering Facility: [facility] Address: [address] [place] [address] Performed By: #### 5 8410-2 #### [facility] CLIA [id number] [address] [place] [address] [place] RBC (Bld) [#/Vol] 3.86 10*6/uL Low 3.90-5.20 [facility] Comment on above: Order Comment: Speci men Type: BLOOD SPECIMEN Ordering Facility: [facility] Address: [address] [place] [address] Performed By: #### 5 8410-2 #### [facility] CLIA [id number] [address] [place] [address] [place] WBC (Bld) [#/Vol] 11.25 10*3/uL High 3.70-11.00 [facility] Comment on above: Order Comment: Speci men Type: BLOOD SPECIMEN Ordering Facility: [facility] Address: [address] [place] [address] Performed By: #### 5 8410-2 #### [facility] CLIA [id number] [address] [id number] [place] CONSULT PROGon 03-30-2022 CONSULT PROG HNO ID: [id number] Author: Joslyn Jain APRN.MAINTENANCE JOB [employer]ITLES Service: Pain Management Author Type: Nurse Practitioner [...] eGFR >= (more content not included)... Normal [facility] Magnesium SerPl-mCncon 03-30 Magnesium [Mass/Vol] 1.6 mg/dL Low 1.7-2.3 [facility] Comment on above: Order Comment: Speci men Type: BLOOD SPECIMEN Ordering Facility: [facility] Address: [address] [place] [address] Performed By: #### 1 9123-9, 2777-1, 20677-4 #### [facility] CLIA [id number] [address] [id number] [place] Phosphate SerPl-mCncon 03-30 Phosphate [Mass/Vol] 2.9 mg/dL Normal 2.7-4.8 [facility] Comment on above: Order Comment: Speci men Type: BLOOD SPECIMEN Ordering Facility: [facility] Address: [facility] [address] [id number] Performed By: #### 1 9123-9, 2777-1, 76127-0 #### [facility] CLIA [id number] [address] [id number] [place] ANES POSTPROC EVALon 022 ANES POSTPROC EVAL HNO ID: [id number] Author: Nathanael Craig DO Service: Anesthesiology Author [...] March 29, 2022 TIME: 8:29 AM CSN: [id number] Normal [facility] Basic metabolic 2000 panelon 03-29-2022 Anion gap [Moles/Vol] 9 mmol/L Normal 9-18 [facility] Comment on above: Order Comment: Speci men Type: BLOOD SPECIMEN Ordering Facility: [facility] Address: [address] [place] [address] Performed By: #### 5 8410-2 #### [facility] CLIA [id number] [address] [place] [address] [place] Calcium [Mass/Vol] 7.9 mg/dL Low 8.5-10.2 [facility] Comment on above: Order Comment: Speci men Type: BLOOD SPECIMEN Ordering Facility: [facility] Address: [address] [place] [address] Performed By: #### 5 8410-2 #### [facility] CLIA [id number] [address] [place] [address] [place] Chloride [Moles/Vol] 105 mmol/L Normal 97-105 [facility] Comment on above: Order Comment: Speci men Type: BLOOD SPECIMEN Ordering Facility: [facility] Address: [address] [place] [address] Performed By: #### 5 8410-2 #### [facility] CLIA [id number] [address] [place] [address] [place] CO2 [Moles/Vol] 24 mmol/L Normal 22-30 [facility] Comment on above: Order Comment: Speci men Type: BLOOD SPECIMEN Ordering Facility: [facility] Address: [address] [place] [address] Performed By: #### 5 8410-2 #### [facility] CLIA [id number] [address] [place] [address] [place] Creatinine [Mass/Vol] 0.70 mg/dL Normal 0.58-0.96 [facility] Comment on above: Order Comment: Leanne terry Type: BLOOD SPECIMEN Ordering Facility: [facility] Address: [address] [place] [address] Performed By: #### 5 8410-2 #### [facility] CLIA [id number] [address] [place] [address] [place] ESTIMATED GLOMERULAR FILTRATION RATE 106 mL/min/1.73m??? Normal >=60 [facility] Comment on above: Order Comment: Leanne terry Type: BLOOD SPECIMEN Ordering Facility: [facility] Address: [address] [place] [address] Result Comment: Mary mated Glomerular Filtration Rate [...] GFR. Performed By: #### 5 8410-2 #### [facility] CLIA [id number] [address] [place] [address] [place] Glucose [Mass/Vol] 92 mg/dL Normal 74-99 [facility] Comment on above: Order Comment: Leanne terry Type: BLOOD SPECIMEN Ordering Facility: [facility] Address: [address] [place] [address] Result Comment: The [place] [employer] (ADA) provides guidance for cutoff [...] Standards of Medical Care in Diabetes 2016, [place] [employer]. Diabetes Care. 2016.39(Suppl 1). Performed By: #### 5 8410-2 #### [facility] CLIA [id number] [address] [place] [address] [place] Potassium [Moles/Vol] 4.1 mmol/L Normal 3.7-5.1 [facility] Comment on above: Order Comment: Speci men Type: BLOOD SPECIMEN Ordering Facility: [facility] Address: [address] [place] [address] Performed By: #### 5 8410-2 #### [facility] CLIA [id number] [address] [place] [address] [place] Sodium [Moles/Vol] 138 mmol/L Normal 136-144 [facility] Comment on above: Order Comment: Speci men Type: BLOOD SPECIMEN Ordering Facility: [facility] Address: [address] [place] [address] Performed By: #### 5 8410-2 #### [facility] CLIA [id number] [address] [place] [address] [place] Urea nitrogen [Mass/Vol] 12 mg/dL Normal 7-21 [facility] Comment on above: Order Comment: Speci men Type: BLOOD SPECIMEN Ordering Facility: [facility] Address: [address] [place] [address] Performed By: #### 5 8410-2 #### [facility] CLIA [id number] [address] [place] [address] [place] CBC W Auto Differential pane l (Bld)on 03-29-2022 Basophils (Bld) [#/Vol] 0.04 10*3/uL Normal <0.11 [facility] Comment on above: Order Comment: Speci men Type: BLOOD SPECIMEN Ordering Facility: [facility] Address: [address] [place] [address] Performed By: #### 5 7021-8 #### [facility] CLIA [id number] [address] [place] [address] [place] Basophils/100 WBC (Bld) 0.6 % Normal [facility] Comment on above: Order Comment: Speci men Type: BLOOD SPECIMEN Ordering Facility: [facility] Address: [address] [place] [address] Performed By: #### 5 7021-8 #### [facility] CLIA [id number] [address] [place] [address] [place] Differential cell count method Nom (Bld) Auto Normal [facility] Comment on above: Order Comment: Speci men Type: BLOOD SPECIMEN Ordering Facility: [facility] Address: [address] [place] [address] Performed By: #### 5 7021-8 #### [facility] CLIA [id number] [address] [place] [address] [place] Eosinophils (Bld) [#/Vol] 0.16 10*3/uL Normal <0.46 [facility] Comment on above: Order Comment: Speci men Type: BLOOD SPECIMEN Ordering Facility: [facility] Address: [address] [place] [address] Performed By: #### 5 7021-8 #### [facility] CLIA [id number] [address] [place] [address] [place] [facility] Eosinophils/100 WBC (Bld) 2.3 % Normal [facility] Comment on above: Order Comment: Speci men Type: BLOOD SPECIMEN Ordering Facility: [facility] Address: [address] [place] [address] Performed By: #### 5 7021-8 #### [facility] CLIA [id number] [address] [place] [address] [place] Erythrocyte distribution width (RBC) [Ratio] 12.8 % Normal 11.5-15.0 [facility] Comment on above: Order Comment: Speci men Type: BLOOD SPECIMEN Ordering Facility: [facility] Address: [address] [place] [address] Performed By: #### 5 7021-8 #### [facility] CLIA [id number] [address] [place] [address] [place] Hematocrit (Bld) [Volume fraction] 32.3 % Low 36.0-46.0 [facility] Comment on above: Order Comment: Speci men Type: BLOOD SPECIMEN Ordering Facility: [facility] Address: [address] [place] [address] Performed By: #### 5 7021-8 #### [facility] CLIA [id number] [address] [place] [address] [place] Hemoglobin (Bld) [Mass/Vol] 10.7 g/dL Low 11.5-15.5 [facility] Comment on above: Order Comment: Speci men Type: BLOOD SPECIMEN Ordering Facility: [facility] Address: [address] [place] [address] Performed By: #### 5 7021-8 #### [facility] CLIA [id number] [address] [place] [address] IMMATURE GRAN % 0.3 % Normal [facility] Comment on above: Order Comment: Speci men Type: BLOOD SPECIMEN Ordering Facility: [facility] Address: [address] [place] [address] Performed By: #### 5 7021-8 #### [facility] CLIA [id number] [address] [place] [address] IMMATURE GRAN ABS <0.03 Normal <0.10 [facility] Comment on above: Order Comment: Speci men Type: BLOOD SPECIMEN Ordering Facility: [facility] Address: [address] [place] [address] Performed By: #### 5 7021-8 #### [facility] CLIA [id number] [address] [place] [address] [place] Lymphocytes (Bld) [#/Vol] 1.39 10*3/uL Normal 1.00-4.00 [facility] Comment on above: Order Comment: Speci men Type: BLOOD SPECIMEN Ordering Facility: [facility] Address: [address] [place] [address] Performed By: #### 5 7021-8 #### [facility] CLIA [id number] [address] [place] [address] [facility] Lymphocytes/100 WBC (Bld) 19.7 % Normal [facility] Comment on above: Order Comment: Speci men Type: BLOOD SPECIMEN Ordering Facility: [facility] Address: [address] [place] [address] Performed By: #### 5 7021-8 #### [facility] CLIA [id number] [address] [place] [address] [place] [facility] MCH (RBC) [Entitic mass] 29.8 pg Normal 26.0-34.0 [facility] Comment on above: Order Comment: Speci men Type: BLOOD SPECIMEN Ordering Facility: [facility] Address: [address] [place] [address] Performed By: #### 5 7021-8 #### [facility] CLIA [id number] [place] [address] [place] MCHC (RBC) [Mass/Vol] 33.1 g/dL Normal 30.5-36.0 [facility] Comment on above: Order Comment: Speci men Type: BLOOD SPECIMEN Ordering Facility: [facility] Address: [address] [place] [address] Performed By: #### 5 7021-8 #### [facility] CLIA [id number] [address] [place] [address] STATES [facility] MCV (RBC) [Entitic vol] 90.0 fL Normal 80.0-100.0 [facility] Comment on above: Order Comment: Speci men Type: BLOOD SPECIMEN Ordering Facility: [facility] Address: [address] [place] [address] Performed By: #### 5 7021-8 #### [facility] CLIA [id number] [address] [place] [address] OF [place] Monocytes (Bld) [#/Vol] 0.55 10*3/uL Normal <0.87 [facility] Comment on above: Order Comment: Speci men Type: BLOOD SPECIMEN Ordering Facility: [facility] Address: [address] [place] [address] Performed By: #### 5 7021-8 #### [facility] CLIA [id number] [address] [place] [address] [place] Monocytes/100 WBC (Bld) 7.8 % Normal [facility] Comment on above: Order Comment: Speci men Type: BLOOD SPECIMEN Ordering Facility: [facility] Address: [address] [place] [address] Performed By: #### 5 7021-8 #### [facility] CLIA [id number] [address] [place] [address] [place] Neutrophils (Bld) [#/Vol] 4.88 10*3/uL Normal 1.45-7.50 [facility] Comment on above: Order Comment: Speci men Type: BLOOD SPECIMEN Ordering Facility: [facility] Address: [address] [place] [address] Performed By: #### 5 7021-8 #### [facility] CLIA [id number] [address] [place] [address] [place] Neutrophils/100 WBC (Bld) 69.3 % Normal [facility] Comment on above: Order Comment: Speci men Type: BLOOD SPECIMEN Ordering Facility: [facility] Address: [address] [place] [address] Performed By: #### 5 7021-8 #### [facility] CLIA [id number] [address] [place] [address] [place] Nucleated RBC (Bld) [#/Vol] 10*3/uL Normal <0.01 [facility] Comment on above: Order Comment: Speci men Type: BLOOD SPECIMEN Ordering Facility: [facility] Address: [address] [place] [address] Performed By: #### 5 7021-8 #### [facility] CLIA [id number] [address] [place] [address] [place] Nucleated RBC/100 WBC (Bld) [Ratio] 0.0 /100 WBC Normal [facility] Comment on above: Order Comment: Speci men Type: BLOOD SPECIMEN Ordering Facility: [facility] Address: [address] Performed By: #### 5 7021-8 #### [facility] CLIA [id number] [address] [place] [address] [place] Platelet mean volume (Bld) [Entitic vol] 9.0 fL Normal 9.0-12.7 [facility] Comment on above: Order Comment: Speci men Type: BLOOD SPECIMEN Ordering Facility: [facility] Address: [address] [place] [address] Performed By: #### 5 7021-8 #### [facility] CLIA [id number] [place] [address] [place] Platelets (Bld) [#/Vol] 241 10*3/uL Normal 150-400 [facility] Comment on above: Order Comment: Speci men Type: BLOOD SPECIMEN Ordering Facility: [facility] Address: [address] [place] [address] Performed By: #### 5 7021-8 #### [facility] CLIA [id number] [address] [place] [address] [place] RBC (Bld) [#/Vol] 3.59 10*6/uL Low 3.90-5.20 [facility] Comment on above: Order Comment: Speci men Type: BLOOD SPECIMEN Ordering Facility: [facility] Address: [address] [place] [address] Performed By: #### 5 7021-8 #### [facility] CLIA [id number] [address] [place] [address] [place] WBC (Bld) [#/Vol] 7.04 10*3/uL Normal 3.70-11.00 [facility] Comment on above: Order Comment: Speci men Type: BLOOD SPECIMEN Ordering Facility: [facility] Address: [address] [place], [place] [address] Performed By: #### 5 7021-8 #### [facility] CLIA [id number] [place] [address] [place] CONSULT PROGon 03-29-2022 CONSULT PROG HNO ID: [id number] Author: Joslyn Jain APRN.MAINTENANCE JOB TITLES Service: Pain Management Author Type: Nurse Practitioner [...] is on liq diet, currently on Dilaudid ALCOHOL LAW ENFORCEMENT AGENT at 0/0.2/10/6 last 2 hours 06/27 bolus [...] No Relieved: Yes - NOW with increase ALCOHOL LAW ENFORCEMENT AGENT and Repositioning and ALCOHOL LAW ENFORCEMENT AGENT Is patient satisfied with pain control: Yes [...] mL PERIPHERAL NERVE CATHETER CONTINUOUS - HYDROmorphone ALCOHOL LAW ENFORCEMENT AGENT 0.5 mg/mL in NaCl 0.9% 100 mL [...] % 69.3 (more content not included)... Normal [facility] Magnesium SerPl-mCncon 03-29 Magnesium [Mass/Vol] 1.4 mg/dL Low 1.7-2.3 [facility] Comment on above: Order Comment: Speci men Type: BLOOD SPECIMEN Ordering Facility: [facility] Address: [address] [place], [place] [address] Performed By: #### 5 8410-2 #### [facility] CLIA [id number] [address] [place] [address] [place] NURSING PROGon 03-29-2022 NURSING PROG HNO ID: [id number] Author: Dipti Crowley RN Service: Nursing Author Type: Registered Nurse Type: Nursing Progress Note Filed: 03/29/2022 2:00 PM Note Text: Nursing Progress Note Patient Name: Mary Leal Patient Location: / __ Daily Note: Patient VSS. RA POx. Pain level better controlled now that ALCOHOL LAW ENFORCEMENT AGENT initiated. B/L Ropivacaine Tap Blocks with dressings CDI. Magnesium replenished as ordered. Transverse and lap sites QUALITY ASSURANCE TEST PROGRAM MANAGER with glue. Dressing to old ostomy saturated [...] staff. This note was completed by: Dipti [facility] NURSING PROG HNO ID: [id number] Author: Kev Leone RN Service: ? Author Type: Registered Nurse Type: Nursing Progress Note Filed: 03/29/2022 3:53 AM Note Text: Nursing Progress Note Patient Name: Mary Leal Patient Location: / __ Daily Note: 0350: Pt states she is in 10/10 pain, pt has no PO pain meds ordered, page sent to surgery resident This note was completed by: Kev Leone [facility] PT EDon 03-29-2022 PT ED HNO ID: [id number] Author: Merced Andrew, DTR Service: Nutrition Therapy Author Type: Inorganic Chemistry Teacher Type: Patient Education Filed: 03/29/2022 11:05 [...] 29, 2022 TIME: 11:04 AM PAGER: Normal [facility] Phosphate SerPl-mCncon 03-29 Phosphate [Mass/Vol] 2.9 mg/dL Normal 2.7-4.8 [facility] Comment on above: Order Comment: Speci men Type: BLOOD SPECIMEN Ordering Facility: [facility] Address: [address] [place] [address] Performed By: #### 5 8410-2 #### [facility] CLIA [id number] [address] [place] [address] [place] ANES PRE-OPon 03-28-2022 ANES PRE-OP HNO ID: [id number] Author: Anibal Bertrand MD Service: Anesthesiology Author [...] (FLONASE) 50 mcg/actuation nasal spray Use 1 [place] in each nostril on (more content not included)... [facility] BRIEF OP NOTon 03-28-2022 BRIEF OP NOT HNO ID: [id number] Author: Nita Lamas MD Service: Colorectal Author Type: Fellow Type: Brief Op Note Filed: 03/28/2022 3:43 PM Note Text: BRIEF OPERATIVE NOTE - COLORECTAL SURGERY Log ID: [id number] Surgery/Procedure Date: 03/28/2022 Incision/Procedure Start Time: 9:47 AM Incision Close/Procedure End Time: 3:40 PM Surgeon(s) and Fiberglass Bonding Machine Tender(s): Surgeon(s) and Role: * Mary Obrien [...] None SIGNATURE: Nita Lamas MD PATIENT NAME: aMry Leal DATE: March 28, 2022 TIME: 3:42 PM [facility] NURSING PROGon 03-28-2022 NURSING PROG HNO ID: [id number] Author: Merced Lay RN Service: ? Author Type: Registered Nurse Type: Nursing Progress Note Filed: 03/28/2022 6:56 PM Note Text: Nursing Progress Note Patient Name: Mary Leal Patient Location: [id number] __ Transfer Note: Patient transferred into room/unit PK3B22 in stable condition. Actions taken: No futher actions taken at this time. Will continue to monitor and check with patient. Paged surgical team. Pt has TAP blocks, but orders were discontinued from PACU. New orders for blocks need to be placed in eMAR. Awaiting call back or orders. This note was completed by: Merced Lay [facility] NURSING PROG HNO ID: [id number] Author: Monica Nicole RN Service: Nursing Author Type: Registered Nurse Type: Nursing Progress Note Filed: 03/28/2022 6:35 PM Note Text: Nursing Progress Note Patient Name: Mary Leal Patient Location: [facility] OR POOL/[facility] OR POOL __ Daily Note: 1750: Dr. Novak notified of patients increase in heart rate from arrival to post op. Patient HR now maintaining in the 120s. 1830: vice president quality rounding at patient bedside. Dressing and abdomen assessed- drainage to be expected on island dressing. Notified him of patients HR running high and notified that patient normally takes 50mg atenolol but held today for surgery. Patient's pain managed and other VS stable at this time. vice president quality is OK with patient going to regular nursing floor at this time. Family updated. This note was completed by: Monica Nicole [facility] NURSING PROG HNO ID: [id number] Author: Vianney Chacon RN Service: Nursing Author [...] (RECOMMENDATION): None Electronically Signed By: Vianney Chacon [facility] OPERATIVE NOon 03-28-2022 OPERATIVE NO HNO ID: [id number] Author: Mary Obrien MD Service: Colorectal Author Type: Physician Type: Operative Report Filed: 03/28/2022 5:06 PM Note Text: COLON AND RECTAL SURGERY OPERATIVE REPORT PATIENT NAME: Mary Leal ADMISSION DATE: 03/28/2022 LOG ID: [id number] SURGERY/PROCEDURE DATE: 03/28/2022 INCISION/PROCEDURE START TIME: 9:47 AM INCISION CLOSE/PROCEDURE END TIME: 3:40 PM AGE: [age] year old SEX: female SURGEON(S)/PROCEDURALI ST(S) AND ELECTRIC STOVE MECHANIC(S): Surgeon(s) and Role: * Mary Obrien MD [...] The abdome (more content not included)... Normal [facility] SURGICAL PATHOLOGYon CASE REPORT Normal [facility] Comment on above: Order Comment: Speci men Type: BLOOD SPECIMEN Ordering Facility: [facility] Address: [address] [place] [address] Result Comment: Surg ical Pathology Report Case: [id number] Authorizing Provider: Mary Obrien MD Collected: 03/28/2022 01:43 PM Ordering Location: [facility] Received: 03/28/2022 04:10 PM Operating Room Pathologist: Alexei Rodriguez MD Specimen: COLON RESECTION, terminal ileum with ileostomy Performed By: #### 5 7021-8 #### [facility] CLIA [id number] [address] [place] [address] CLINICAL HISTORY ILEORECTAL ANASTOMOSIS, TAKEDOWN OF ILEOSTOMY [facility] Comment on above: Order Comment: Speci men Type: BLOOD SPECIMEN Ordering Facility: [facility] Address: [address] [place], [place] [address] Performed By: #### 5 7021-8 #### [facility] CLIA [id number] [address] [place] [address] DIAGNOSIS COMMENT The histologic findings are nonspecific [...] of associated inflammation or infectious organisms. Normal [facility] Comment on above: Order Comment: Speci men Type: BLOOD SPECIMEN Ordering Facility: [facility] Address: [address] [place] [address] Performed By: #### 5 7021-8 #### [facility] CLIA [id number] [address] [place] [address] FINAL DIAGNOSIS Normal [facility] Comment on above: Order Comment: Speci men Type: BLOOD SPECIMEN Ordering Facility: [facility] Address: [address] [place] [address] Result Comment: Bonifay n and terminal ileum with ileostomy, resection: - Colon with patchy active colitis, submucosal fibrosis, acute serositis, and fibrovascular adhesions (see comment). - Small bowel with focal transmural defect, acute serositis, fibrovascular adhesions, and changes consistent with ileostomy site. - Benign lymph nodes. JEL 03/31/2022 Performed By: #### 5 7021-8 #### [facility] CLIA [id number] [address] [place] [address] FINAL PERFORMING LAB Normal [facility] Comment on above: Order Comment: Speci men Type: BLOOD SPECIMEN Ordering Facility: [facility] Address: [address] [place] [address] Result Comment: Diag nostic interpretation performed at [facility], [address] [place] [address] CLIA# [id number] Vice President Mission Integration: Howie Anderson M.D. Performed By: #### 5 7021-8 #### [facility] CLIA [id number] [address] [place] [address] GROSS DESCRIPTION Normal [facility] Comment on above: Order Comment: Speci men Type: BLOOD SPECIMEN Ordering Facility: [facility] Address: [address] [place] [address] Result Comment: A. C OLON RESECTION. Received [...] diverticula. The serosa is jaimes-pink and smooth. Skull Splitter sections are submitted from distal to proximal [...] 9:53 AM Gross examination performed at [facility], [address] [place] [address] CLIA # [id number] Performed By: #### 5 7021-8 #### [facility] CLIA [id number] [place] [address] [place] Q - CBC W/DIFF AND PLTon BASOABS 59 cells/uL Normal 0-200 [facility] Comment on above: Order Comment: [facility] performed at: [place], [facility], [address] , [address] [place] [address], [address] [place] [address], Vice President Mission Integration: Gopal Hamilton MD [facility] Collection Date/Time: [facility] Results Received Date/Time: [facility] Reported Date/Time: Performed By: #### 9 68T, 59767D, %8293, 77552X, 6399, 496X #### [facility] Default [address] [place] [address] Basophils/100 WBC (Bld) 1.0 % Normal [facility] Comment on above: Order Comment: [facility] performed at: [facility], [address], [address] [place] [address], [address] [place] [address], Vice President Mission Integration: Gopal Hamilton MD [facility] Date/Time: [facility] Results Received Date/Time: [facility] Reported Date/Time: Performed By: #### 9 68T, 91843F, %8293, 47786E, 6399, 496X #### [facility] Default [address] [place] [address] EOSABS 171 cells/uL Normal 15-500 [facility] Comment on above: Order Comment: [facility] performed at: [place], [employer], [address], [address] [place] [address], [phone], Vice President Mission Integration: Gopal Hamilton MD [facility] Date/Time: [facility] Results Received Date/Time: [facility] Reported Date/Time: Performed By: #### 9 68T, 75493X, %8293, 87451A, 6399, 496X #### [facility] Default [address] [place] [address] Eosinophils/100 WBC (Bld) 2.9 % Normal [facility] [place] Comment on above: Order Comment: [facility] performed at: [place], [employer], [address] [place] [address], [address] [place] [address], [address] [place] [address], Vice President Mission Integration: Gopal Hamilton MD [facility] Date/Time: [facility] Results Received Date/Time: [facility] Reported Date/Time: Performed By: #### 9 68T, 62424W, %8293, 03961T, 6399, 496X #### [facility] Default [address] [place] [address] Erythrocyte distribution width (RBC) [Ratio] 12.9 % Normal 11.0-15.0 [facility] Comment on above: Order Comment: [facility] performed at: [facility], [address] [place] [address], [address] [place] [address], [address] [place] [address], Vice President Mission Integration: Gopal Hamilton MD [facility] Date/Time: [facility] Results Received Date/Time: [facility] Reported Date/Time: Performed By: #### 9 68T, 13755T, %8293, 02784M, 6399, 496X #### [facility] Default [address] [place] [address] Hematocrit (Bld) [Volume fraction] 38.1 % Normal 35.0-45.0 [facility] [place] Comment on above: Order Comment: [facility] performed at: [place], [employer], [address] [place] [address], [address] [place] [address], [address] [place] [address], Vice President Mission Integration: Gopal Hamilton MD [facility] Date/Time: [facility] Results Received Date/Time: [facility] Reported Date/Time: Performed By: #### 9 68T, 48202F, %8293, 29017A, 6399, 496X #### [facility] Default [address] [place] [address] Hemoglobin (Bld) [Mass/Vol] 12.9 g/dL Normal 11.7-15.5 [facility] [place] Comment on above: Order Comment: [facility] performed at: [place], [employer], [address] [facility], [address] [place] [address], [address] [place] [address], Vice President Mission Integration: Gopal Hamilton MD [facility] Date/Time: [facility] Results Received Date/Time: [facility] Reported Date/Time: Performed By: #### 9 68T, 50494M, %8293, 27966S, 6399, 496X #### [facility] Default [address] [place] [address] Lymphocytes (Bld) [#/Vol] 1.375 10*3/uL Normal 850-3900 [facility] [place] Comment on above: Order Comment: [facility] performed at: [place], [employer], [address] , [address] [place] [address], [address] [place] [address], Vice President Mission Integration: Gopal Hamilton MD [facility] Date/Time: [facility] Results Received Date/Time: [facility] Reported Date/Time: Performed By: #### 9 68T, 24799B, %8293, 95787U, 6399, 496X #### [facility] Default [address] [place] [address] Lymphocytes/100 WBC (Bld) 23.3 % Normal [facility] [place] Comment on above: Order Comment: [facility] performed at: [place], [employer], [address] , [address] [place] [address], [address] [place] [address], Vice President Mission Integration: Gopal Hamilton MD [facility] Date/Time: [facility] Results Received Date/Time: [facility] Reported Date/Time: Performed By: #### 9 68T, 19295X, %8293, 84893Y, 6399, 496X #### [facility] Default [address] [place] [address] MCH (RBC) [Entitic mass] 30.0 pg Normal 27.0-33.0 [facility] [place] Comment on above: Order Comment: [facility] performed at: [facility], [facility], [address] [place] [address], [address] [place] [address], , Vice President Mission Integration: Gopal Hamilton MD [facility] Date/Time: [facility] Results Received Date/Time: [facility] Reported Date/Time: Performed By: #### 9 68T, 14277I, %8293, 25559N, 6399, 496X #### [facility] Default [address] [place] [address] MCHC (RBC) [Mass/Vol] 33.9 g/dL Normal 32.0-36.0 [facility] Comment on above: Order Comment: [facility] performed at: [facility], [employer], [address] [place] [address], [address] [place] [address], [phone], Vice President Mission Integration: Gopal Hamilton MD [facility] Date/Time: [facility] Results Received Date/Time: [facility] Reported Date/Time: Performed By: #### 9 68T, 33235C, %8293, 57341U, 6399, 496X #### [facility] Default [address] [place] [address] MCV (RBC) [Entitic vol] 88.6 fL Normal 80.0-100.0 [facility] [place] Comment on above: Order Comment: [facility] performed at: [employer], [employer] [facility], [address] [place] [address], [address] [place] [address], [address] [place] [address], Vice President Mission Integration: Gopal Hamilton MD [facility] Date/Time: [facility] Results Received Date/Time: [facility] Reported Date/Time: Performed By: #### 9 68T, 34079T, %8293, 32310T, 6399, 496X #### [facility] Default [address] [place] [address] MONOABS 460 cells/uL Normal 200-950 [facility] Comment on above: Order Comment: [facility] performed at: [place], [employer], [address] [facility], [address] [place] [address], [address] [place] [address], Vice President Mission Integration: Gopal Hamilton MD [facility] Date/Time: [facility] Results Received Date/Time: [facility] Reported Date/Time: Performed By: #### 9 68T, 77334W, %8293, 49998K, 6399, 496X #### [facility] Default [address] [place] [address] Monocytes/100 WBC (Bld) 7.8 % Normal [facility] Comment on above: Order Comment: [facility] performed at: [place], [employer] [facility], [address] , [address] [place] [address], [address] [place] [address], Vice President Mission Integration: Gopal Hamilton MD [facility] Date/Time: [facility] Results Received Date/Time: [facility] Reported Date/Time: Performed By: #### 9 68T, 91670W, %8293, 61291I, 6399, 496X #### [facility] Default [address] [place] [address] Neutrophils (Bld) [#/Vol] 3.835 10*3/uL Normal 2736-0195 [facility] Comment on above: Order Comment: [facility] performed at: [place], [employer], [address] , [address] [place] [address], [address] [place] [address], Vice President Mission Integration: Gopal Hamilton MD [facility] Date/Time: [facility] Results Received Date/Time: [facility] Reported Date/Time: Performed By: #### 9 68T, 64435R, %8293, 52404O, 6399, 496X #### [facility] Default [address] [place] [address] Neutrophils/100 WBC (Bld) 65 % Normal [facility] Comment on above: Order Comment: [facility] performed at: [place], [employer], [address] [place] [address], [address] [place] [address], [address] [place] [address], Vice President Mission Integration: Gopal Hamilton MD [facility] Date/Time: [facility] Results Received Date/Time: [facility] Reported Date/Time: Performed By: #### 9 68T, 21398E, %8293, 04927E, 6399, 496X #### [facility] Default [address] [place] [address] Platelet mean volume (Bld) [Entitic vol] 9.3 fL Normal 7.5-12.5 [facility] [place] Comment on above: Order Comment: [facility] performed at: [place], [employer], [address] [place] [address], [address] [place] [address], [address] [place] [address], Vice President Mission Integration: Gopal Hamilton MD [facility] Date/Time: [facility] Results Received Date/Time: [facility] Reported Date/Time: Performed By: #### 9 68T, 22757I, %8293, 49063Y, 6399, 496X #### [facility] Default [address] [place] [address] Platelets (Bld) [#/Vol] 409 10*3/uL High 140-400 [facility] Comment on above: Order Comment: [facility] performed at: [place], [employer] [facility], [address] [place] [address], [address] [place] [address], [address] [place] [address], Vice President Mission Integration: Gopal Hamilton MD [facility] Date/Time: [facility] Results Received Date/Time: [facility] Reported Date/Time: Performed By: #### 9 68T, 00901T, %8293, 46660K, 6399, 496X #### [facility] Default [address] [place] [address] RBC (Bld) [#/Vol] 4.30 10*6/uL Normal 3.80-5.10 [facility] [place] Comment on above: Order Comment: [facility] performed at: [place] [employer] [facility], [address] [place] [address], [address] [place] [address], [address] [place] [address], Vice President Mission Integration: Gopal Hamilton MD [facility] Collection Date/Time: [facility] Results Received Date/Time: [facility] Reported Date/Time: Performed By: #### 9 68T, 08068C, %8293, 04755X, 6399, 496X #### [facility] Default [address] [place] [address] WBC (Bld) [#/Vol] 5.9 10*3/uL Normal 3.8-10.8 Jay gambino [place] Grizzly[place] Comment on above: Order Comment: Quest Testing performed at: [facility], [address] , [address] [place] [address], [address] [place] [address], Vice President Mission Integration: Gopal Hamilton MD [facility] Collection Date/Time: [facility] Results Received Date/Time: [facility] Reported Date/Time: Performed By: #### 9 68T, 76559S, %8293, 15127A, 6399, 496X #### [facility] Default [address] [place] [address] Q - COMPREHENSIVE METABOLIC PANEL W/EGFRon 03-10-2022 Albumin [Mass/Vol] 4.3 g/dL Normal 3.6-5.1 Jay gambino [place] Comment on above: Order Comment: [facility] Testing performed at: [employer], [employer] [facility], [address] [place] [address], [address] [place] [address], [address] [place] [address], Vice President Mission Integration: Gopal Hamilton MD [facility] Collection Date/Time: [facility] Results Received Date/Time: [facility] Reported Date/Time: Performed By: #### 9 68T, 98169E, %8293, 96715N, 6399, 496X #### [facility] Default [address] [place] [address] Albumin/Globulin [Mass ratio] 1.7 {ratio} Normal 1.0-2.5 [facility] Specialist Comment on above: Order Comment: Quest Testing performed at: [place], [employer] [facility], [address] [place] [address], [address] [place] [address], [address] [place] [address], Vice President Mission Integration: Gopal Hamilton MD [facility] Collection Date/Time: [facility] Results Received Date/Time: [facility] Reported Date/Time: Performed By: #### 9 68T, 66040S, %8293, 70803V, 6399, 496X #### [facility] Default [address] [place] [address] ALP [Catalytic activity/Vol] 134 U/L High 31-125 [facility] Grizzlyman Comment on above: Order Comment: [facility] Testing performed at: [place], [employer] [facility], [address] [place] [address], [address] [place] [address], [address] [place] [address], Vice President Mission Integration: Gopal Hamilton MD [facility] Collection Date/Time: [facility] Results Received Date/Time: [facility] Reported Date/Time: Performed By: #### 9 68T, 40596U, %8293, 11083D, 6399, 496X #### [facility] Default [address] [place] [address] ALT [Catalytic activity/Vol] 41 U/L High 6-29 [facility] Grizzlyman Comment on above: Order Comment: [facility] Testing performed at: [place], [employer] [facility], 5 [facility], [address] [place] [address], [address] [place] [address], Vice President Mission Integration: Gopal Hamilton MD [facility] Collection Date/Time: [facility] Results Received Date/Time: [facility] Reported Date/Time: Performed By: #### 9 68T, 78384H, %8293, 05251F, 6399, 496X #### [facility] Default [address] [place] [address] AST [Catalytic activity/Vol] 33 U/L Normal 10-35 [facility] Specialist Comment on above: Order Comment: [facility] Testing performed at: [place], [employer] [facility], [address] [place] [address], [address] [place] [address], [address] [place] [address], Vice President Mission Integration: Gopal Hamilton MD [facility] Collection Date/Time: [facility] Results Received Date/Time: [facility] Reported Date/Time: Performed By: #### 9 68T, 44333X, %8293, 46446C, 6399, 496X #### [facility] Default [address] [place] [address] BUN/CREA 17 NOT APPLICABLE Normal 6-22 [facility] Specialist Comment on above: Order Comment: [facility] Testing performed at: [place], [employer] [facility], 5 [facility], [address] [place] [address], [address] [place] [address], Vice President Mission Integration: Gopal Hamilton MD [facility] Collection Date/Time: [facility] Results Received Date/Time: [facility] Reported Date/Time: Performed By: #### 9 68T, 38067J, %8293, 97563U, 6399, 496X #### [facility] Default [address] [facility] [place] [address] Calcium [Mass/Vol] 9.6 mg/dL Normal 8.6-10.2 [facility] Specialist Comment on above: Order Comment: Quest Testing performed at: [employer], [employer] [facility], [address] [facility], [address] [place] [address], [address] [place] [address], Vice President Mission Integration: Gopal Hamilton MD [facility] Collection Date/Time: [facility] Results Received Date/Time: [facility] Reported Date/Time: Performed By: #### 9 68T, 69365T, %8293, 55743X, 6399, 496X #### [facility] Default [address] [place] [address] Chloride [Moles/Vol] 103 mmol/L Normal 98-110 [facility] Specialist Comment on above: Order Comment: Quest Testing performed at: [place], [employer] [facility], [address] [facility], [address] [place] [address], [address] [place] [address], Vice President Mission Integration: Gopal Hamilton MD [facility] Collection Date/Time: [facility] Results Received Date/Time: [facility] Reported Date/Time: Performed By: #### 9 68T, 24292Y, %8293, 65946T, 6399, 496X #### [facility] Default [address] [place] [address] CO2 [Moles/Vol] 27 mmol/L Normal 20-32 [facility] Specialist Comment on above: Order Comment: Quest Testing performed at: [place], [employer] [facility], [address] [facility], [address] [place] [address], [address] [place] [address], Vice President Mission Integration: Gopal Hamilton MD [facility] Collection Date/Time: [facility] Results Received Date/Time: [facility] Reported Date/Time: Performed By: #### 9 68T, 00233A, %8293, 26453O, 6399, 496X #### [facility] Default [address] [place] [address] Creatinine [Mass/Vol] 0.65 mg/dL Normal 0.50-1.10 [place] Comment on above: Order Comment: Quest Testing performed at: [place], [employer] [facility], [address] [facility], [address] [place] [address], [address] [place] [address], Vice President Mission Integration: Gopal Hamilton MD [facility] Collection Date/Time: [facility] Results Received Date/Time: [facility] Reported Date/Time: Performed By: #### 9 68T, 90105V, %8293, 20737M, 6399, 496X #### [facility] Default [address] [place] [address] eGFRAA (Quest) 121 mL/min/1.73m2 Normal > OR = 60 [place] Comment on above: Order Comment: [facility] Testing performed at: [place], [employer] [facility], [address] , [address] [place] [address], [address] [place] [address], Vice President Mission Integration: Gopal Hamilton MD [facility] Collection Date/Time: [facility] Results Received Date/Time: [facility] Reported Date/Time: Performed By: #### 9 68T, 18041O, %8293, 74301G, 6399, 496X #### [facility] Default [address] [place] [address] eGFRNAA (Quest) 104 mL/min/1.73m2 Normal > OR = 60 No rthern [place] Comment on above: Order Comment: Quest Testing performed at: [place], [employer] [facility], [address] [facility], [address] [place] [address], [address] [place] [address], Vice President Mission Integration: Gopal Hamilton MD [facility] Collection Date/Time: [facility] Results Received Date/Time: [facility] Reported Date/Time: Performed By: #### 9 68T, 63962S, %8293, 01989G, 6399, 496X #### [facility] Default [address] [place] [address] Globulin (S) [Mass/Vol] 2.5 g/dL Normal 1.9-3.7 [facility] Grizzlyman Comment on above: Order Comment: Quest Testing performed at: [place], [employer] [facility], [address] [place] [address], [address] [place] [address], [address] [place] [address], Vice President Mission Integration: Gopal Hamilton MD [facility] Collection Date/Time: [facility] Results Received Date/Time: [facility] Reported Date/Time: Performed By: #### 9 68T, 97498W, %8293, 15855V, 6399, 496X #### [facility] Default [address] [place] [address] Glucose [Mass/Vol] 94 mg/dL Normal 65-99 [facility] Grizzlyman Comment on above: Order Comment: [facility] Testing performed at: [place] [employer] [facility], [address] [place] [address], [address] [place] [address], [address] [place] [address], Vice President Mission Integration: Gopal Hamilton MD [facility] Collection Date/Time: [facility] Results Received Date/Time: [facility] Reported Date/Time: Result Comment: Fasting reference interval Performed By: #### 9 68T, 37008W, %8293, 91303Y, 6399, 496X #### [facility] Default [address] [place] [address] Potassium [Moles/Vol] 4.4 mmol/L Normal 3.5-5.3 [facility] Comment on above: Order Comment: Quest Testing performed at: [place] [employer] [facility], [address] [place] [address], [address] [place] [address], [address] [place] [address], Vice President Mission Integration: Gopal Hamilton MD [facility] Collection Date/Time: [facility] Results Received Date/Time: [facility] Reported Date/Time: Performed By: #### 9 68T, 20421S, %8293, 02998G, 6399, 496X #### [facility] Default [address] [place] [address] Protein [Mass/Vol] 6.8 g/dL Normal 6.1-8.1 Jay gambino [place] Comment on above: Order Comment: [facility] Testing performed at: [place], [employer] [facility], [address] [place] [address], [address] [place] [address], [address] [place] [address], Vice President Mission Integration: Gopal Hamilton MD [facility] Collection Date/Time: Quest Results Received Date/Time: Quest Reported Date/Time: Performed By: #### 9 68T, 34733V, %8293, 35515F, 6399, 496X #### [facility] Default [address] [place] [address] Sodium [Moles/Vol] 138 mmol/L Normal 135-146 Jay gambino [place] Comment on above: Order Comment: [facility] Testing performed at: [place] [employer] [facility], [address] [place] [address], [address] [place] [address], [address] [place] [address], Vice President Mission Integration: Gopal Hamilton MD [facility] Collection Date/Time: [facility] Results Received Date/Time: [facility] Reported Date/Time: Performed By: #### 9 68T, 19744H, %8293, 17433M, 6399, 496X #### [facility] Default [address] [place] [address] TBIL <0.3 Normal 0.2-1.2 [facility] Grizzlyman Comment on above: Order Comment: [facility] Testing performed at: [place], [employer] [facility], [address] [place] [address], [address] [place] [address], [address] [place] [address], Vice President Mission Integration: Gopal Hamilton MD Quest Collection Date/Time: Quest Results Received Date/Time: [facility] Reported Date/Time: Performed By: #### 9 68T, 11898E, %8293, 70455G, 6399, 496X #### [facility] Default [address] [place] [address] Urea nitrogen [Mass/Vol] 11 mg/dL Normal 7-25 [facility] Grizzlyman Comment on above: Order Comment: [facility] Testing performed at: [place], [employer] [facility], [address] [place] [address], [address] [place] [address], [address] [place] [address], Vice President Mission Integration: Gopal Hamilton MD Quest Collection Date/Time: Quest Results Received Date/Time: [facility] Reported Date/Time: Performed By: #### 9 68T, 30465B, %8293, 47062K, 6399, 496X #### [facility] Default [address] [place] [address] Q - DLDL REFLEXon 03-10-2022 Cholesterol in LDL [Mass/Vol] 87 mg/dL Normal <100 [place] Grizzlyman Comment on above: Order Comment: [facility] Testing performed at: [place], [employer] [facility], 5 [facility], [address] [place] [address], [address] [place] [address], Vice President Mission Integration: Gopal Hamilton MD [facility] Collection Date/Time: [facility] Results Received Date/Time: [facility] Reported Date/Time: Result Comment: Desirable range <100 mg/dL for primary prevention; <70 mg/dL for patients with CHD or diabetic patients with > or = 2 CHD risk factors. Performed By: #### 9 68T, 25229C, %8293, 01822A, 6399, 496X #### [facility] Default [address] [place] [address] Q - HEMOGLOBIN A1Con 022 HEMOGLOBIN A1c 5.0 % of total Hgb Normal <5.7 No rthern [place]zzly[place] Comment on above: Order Comment: [facility] Testing performed at: [facility], 5 [facility], [address] [place] [address], [address] [place] [address], Vice President Mission Integration: Gopal Hamilton MD Quest Collection Date/Time: Quest [...] diagnosis of diabetes in children. According to [place] Diabetes Association (ADA) guidelines, hemoglobin A1c <7.0% represents optimal control in non- diabetic patients. Different metrics may apply to specific patient populations. Standards of Medical Care in Diabetes(ADA). Performed By: #### 9 68T, 06543M, %8293, 02583E, 6399, 496X #### [facility] Default [address] [place] [address] Q - Lipid Panelon 03-10-2022 Cholesterol [Mass/Vol] 230 mg/dL High <200 [facility] Grizzlyman Comment on above: Order Comment: [facility] Testing performed at: [facility], [address] [place] [address], [address] [place] [address], [address] [place] [address], Vice President Mission Integration: Gopal Hamilton MD Quest Collection Date/Time: Quest Results Received Date/Time: Quest Reported Date/Time: Performed By: #### 9 68T, 50862N, %8293, 05897N, 6399, 496X #### [facility] Default [address] [place] [address] Cholesterol in HDL [Mass/Vol] 52 mg/dL Normal > OR = 50 [facility] Grizzlyman Comment on above: Order Comment: [facility] Testing performed at: [place], [employer] [facility], 5 [facility], [address] [place] [address], [address], Vice President Mission Integration: Gopal Hamilton MD Quest Collection Date/Time: Quest Results Received Date/Time: [facility] Reported Date/Time: Performed By: #### 9 68T, 56697S, %8293, 73947V, 6399, 496X #### [facility] Default [address] [place] [address] Cholesterol.total/Cho lesterol in HDL [Mass ratio] 4.4 {ratio} Normal <5.0 [facility] Grizzlyman Comment on above: Order Comment: [facility] Testing performed at: [place], [employer] [facility], [address] [place] [address], [address] [place] [address], [address] [place] [address], Vice President Mission Integration: Gopal Hamilton MD Quest Collection Date/Time: [facility] Results Received Date/Time: [facility] Reported Date/Time: Performed By: #### 9 68T, 67965Q, %8293, 18278W, 6399, 496X #### [facility] Default [address] [place] [address] LDLD SEE NOTE Normal [facility] Specialist Comment on above: Order Comment: Quest Testing performed at: [employer] [employer] [facility], [address] [facility], [address] [place] [address], [address] [place] [address], Vice President Mission Integration: Gopal Hamilton MD Quest Collection Date/Time: Quest [...] LDL-C. Estevan SCHILLING et al. ZANA. 2013;310(19): 0659-5744 ([email or web address]) Performed By: #### 9 68T, 69473B, %8293, 06150Y, 6399, 496X #### [facility] Default [address] [place] [address] NON HDL CHOLESTEROL 178 mg/dL (calc) High <130 [facility] Grizzlyman Comment on above: Order Comment: [facility] Testing performed at: [place], [employer] [facility], [address] , [address] [place] [address], [address] [place] [address], Vice President Mission Integration: Gopal Hamilton MD Quest Collection Date/Time: [facility] Results Received Date/Time: [facility] Reported Date/Time: Result Comment: For patients with diabetes plus 1 major ASCVD risk factor, treating to a non-HDL-C goal of <100 mg/dL (LDL-C of <70 mg/dL) is considered a therapeutic option. Performed By: #### 9 68T, 78869M, %8293, 79487W, 6399, 496X #### [facility] Default [address] [place] [address] Triglyceride [Mass/Vol] 410 mg/dL High <150 [facility] Grizzlyman Comment on above: Order Comment: [facility] Testing performed at: [place], [employer] [facility], [address] , [address] [place], [place], [address] [place] [address], Vice President Mission Integration: Gopal Hamilton MD Quest Collection Date/Time: [facility] Results Received Date/Time: [facility] Reported Date/Time: Result Comment: If a non-fasting specimen was collected, consider repeat triglyceride testing on a fasting specimen if clinically indicated. João et al. J. of Clin. Lipidol. 2015;9:129-169. Performed By: #### 9 68T, 31613P, %8293, 06937U, 6399, 496X #### [facility] Default [address] [place] [address] Q - TROPONIN Ion 03-10-2022 TROPONIN I 3 ng/L Normal < OR = 47 [facility] Grizzlyman Comment on above: Order Comment: [facility] Testing performed at: [place], [employer] [facility], [address] , [address] [place], [address], Vice President Mission Integration: Gopal Hamilton MD [facility] Collection Date/Time: [id number] [facility] Results Received Date/Time: [id number] [facility] Reported Date/Time: [id number] Result Comment: In accord with published recommendations, serial testing of troponin I at intervals of 2 to 4 hours for up to 12 to 24 hours is suggested in order to corroborate a single troponin I result. An elevated troponin alone is not sufficient to make the diagnosis of NE. Performed By: #### 9 68T, 26677T, %8293, 95489N, 6399, 496X #### [facility] Default [address] [place] [address] UA DIP, URINE (POC)on 2021 BILIRUBIN UA (POCT) Negative Negative [facility] CLARITY UA (POCT) Clear [facility] COLOR UA (POCT) Yellow [facility] GLUCOSE UA (POCT) Negative Negative mg/dL [facility] HEMOGLOBIN/BLOOD UA (POCT) Negative Negative [facility] KETONE UA (POCT) Negative Negative mg/dL [facility] LEUKOCYTES UA (POCT) Negative Negative [facility] NITRITE UA (POCT) Negative Negative [facility] PH UA (POCT) 5.0 4.5 - 8.0 [facility] Protein Ql (U) Trace Abnormal Negative mg/dL [facility] SPECIFIC GRAVITY UA (POCT) >=1.030 1.005 - 1.030 [facility] UROBILINOGEN UA (POCT) 0.2 E.U./dL Normal E.U./dL [facility] CNTHERAPYon 01-31-2022 CNTHERAPY OT/PT/Speech Visit (PTLHO) MARY LEAL ([id number]) 1970 F Date Time Provider Department 01/31/22 10:30 AM [facility]WTON [facility]WARD PT[facility] Date Time Provider Department Center 01/31/2022 10:30 AM [id number], JILL [facility] Reason for Visit: Physical Therapy [503] [...] (FLONASE) 50 mcg/actuation nasal spray Use 1 [place] in each nostril once daily. - carBAMazepine [...] Take 50 mg by mouth once daily. [facility]20[facility]PTLHO[facility] MARY LEAL ([id number]) 1970 F Date Time Provider Department 01/24/22 10:30 AM NE[facility]ON WOODWARD PTSA[facility]ANNA[facility] Date Time Provider Department [place] 01/24/2022 10:30 AM [id number]: [facility] [503] [...] (FLONASE) 50 mcg/actuation nasal spray Use 1 [place] in each nostril once daily. - carBAMazepine [...] Take 50 mg by mouth once daily. [facility] CNTHERAPYon 01-18-2022 CNTHERAPY OT/PT/Speech Visit (PTLHO) MARY LEAL ([id number]) 1970 F Date Time Provider Department 01/18/22 12:15 PM [facility] Date Time Provider Department [place] 01/18/2022 12:15 PM [id number], [facility] Reason for Visit: PT Eval [747] [...] (FLONASE) 50 mcg/actuation nasal spray Use 1 [place] in each nostril once daily. - carBAMazepine [...] mg by mouth once daily. Letter [facility] HNO ID: [id number] Author: Sonido Owen MD Service: Colorectal Author [...] 50 mg Finesse (more content not included)... [employer] CONSULTon 12-27-2021 CONSULT HNO ID: [id number] Author: Dai Hines RN Service: Wound/Ostomy Author [...] downward Mucosal condition and color: Red and Ailey and moist. Boni: No Mucocutaneous Junction: Intact [...] one piece cut to fit drainable pouch (#35120) and Coloplast Brava moldable ring (2mm) #[id number]. Brava barrier strips, product # [id number] applied around the border of the pouch. [...] Home Health [facility] SIGNATURE: Dai HENSON RN DINESH WEEMS This is an electronically created document. IF PRINTED, PLEASE DO NOT REMOVE FROM THE CHART OR MODIFY PRINTED COPY. [employer] NURSING PROGon 12-27-2021 NURSING PROG HNO ID: [id number] Author: Marizol Hankins RN Service: ? Author Type: Registered Nurse Type: Nursing Progress Note Filed: 12/27/2021 4:39 PM Note Text: Nursing Progress Note Patient Name: [facility] Leal [id number] __ Daily Note: Pt AANDO x 3. 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 NOTE SERVICE DATE: 12/27/2021 SERVICE TIME: [...] DATE: December 27, 2021 TIME: 12:15 PM [employer] PT EDon 12-27-2021 PT ED HNO ID: [id number] Author: Merced Morales DTR Service: Nutrition Therapy Author Type: Inorganic Chemistry Teacher Type: Patient Education Filed: 12/27/2021 12:16 [...] 27, 2021 TIME: 12:16 PM PAGER: Normal [facility] Basic Metabolic Panlon 12-26 Anion gap [Moles/Vol] 9 mmol/L Normal 9-18 [facility] Comment on above: Performed By: #### B MP #### [place] [address] Calcium [Mass/Vol] 8.5 mg/dL Normal 8.5-10.5 [facility] Comment on above: Performed By: #### B MP #### [place] [address] Chloride [Moles/Vol] 102 mmol/L Normal 98-110 [facility] Comment on above: Performed By: #### B MP #### [place] [address] CO2 [Moles/Vol] 28 mmol/L Normal 23-32 [facility] Comment on above: Performed By: #### B MP #### [place] [address] Creatinine [Mass/Vol] 0.62 mg/dL Low 0.70-1.40 [facility] Comment on above: Performed By: #### B MP #### [place] [address] eGFR- Amer. >60 Normal >59 [facility] Comment on above: Performed By: #### B MP #### [place] [phone] eGFR-All Other Races >60 Normal >59 [facility] Comment on above: Result [...] By: #### B MP #### [place] [phone] Glucose [Mass/Vol] 71 mg/dL Normal 65-100 [facility] Comment on above: Performed By: #### B MP #### [place] [phone] Potassium [Moles/Vol] 4.0 mmol/L Normal 3.5-5.0 [facility] Comment on above: Performed By: #### B MP #### [place] [address] Sodium [Moles/Vol] 139 mmol/L Normal 132-148 [facility] Comment on above: Performed By: #### B MP #### [place] [address] Urea nitrogen [Mass/Vol] 10 mg/dL Normal 8-25 [facility] Comment on above: Performed By: #### B MP #### [place] [phone] NURSING PROGon 12-26-2021 NURSING PROG HNO ID: [id number] Author: Dipti Crowley RN Service: Nursing Author Type: Registered Nurse Type: Nursing Progress Note Filed: 12/26/2021 5:25 PM Note Text: Nursing Progress Note Patient Name: Mary Leal Patient Location: [place] [address] __ Daily Note: Call discontinued as directed in orders. 700cc output from call. 250cc NS instilled and then call catheter removed. Patient assisted to BSC and voided 200cc pink tinged urine. Patient assisted back to bed, not wanting to go to chair. Call light in reach. This note was completed by: Dipti Crowley [facility] NURSING PROG HNO ID: [id number] Author: Dipti Crowley RN Service: Nursing Author Type: Registered Nurse Type: Nursing Progress Note Filed: 12/26/2021 3:51 PM Note Text: Nursing Progress Note Patient Name: Mary Leal Patient Location: [place] [address] __ Daily Note: Patient AANDOx3. VSS. 2L NC POx. IVF infusing as ordered. Dilaudid ALCOHOL LAW ENFORCEMENT AGENT, OXY IR on for pain. Patient drowsy yet easily arousable. Lap sites and transverse incision QUALITY ASSURANCE TEST PROGRAM MANAGER with glue. Ileostomy draining liquid brown. Call draining clear yellow. PAS on. No edema. Fa,saman at bed side. Call light in reach. This note was completed by: Dipti Crowley Normal [facility] Basic Metabolic Panlon 12-25 Anion gap [Moles/Vol] 9 mmol/L Normal 9-18 [facility] Comment on above: Performed By: #### B MP #### [place] [phone] Calcium [Mass/Vol] 8.5 mg/dL Normal 8.5-10.5 [facility] Comment on above: Performed By: #### B MP #### [place] [address] Chloride [Moles/Vol] 104 mmol/L Normal 98-110 [facility] Comment on above: Performed By: #### B MP #### [place] [phone] CO2 [Moles/Vol] 28 mmol/L Normal 23-32 [facility] Comment on above: Performed By: #### B MP #### [address] Creatinine [Mass/Vol] 0.72 mg/dL Normal 0.70-1.40 [facility] Comment on above: Performed By: #### B MP #### [place] [phone] eGFR- Amer. >60 Normal >59 [facility] Comment on above: Performed By: #### B MP #### [place] [phone] eGFR-All Other Races >60 Normal >59 [facility] Comment on above: Result [...] By: #### B MP #### [place] [phone] Glucose [Mass/Vol] 91 mg/dL Normal 65-100 [facility] Comment on above: Performed By: #### B MP #### [phone] Potassium [Moles/Vol] 4.0 mmol/L Normal 3.5-5.0 [facility] Comment on above: Performed By: #### B MP #### [place] [phone] Sodium [Moles/Vol] 141 mmol/L Normal 132-148 [facility] Comment on above: Performed By: #### B MP #### [phone] Urea nitrogen [Mass/Vol] 12 mg/dL Normal 8-25 [facility] Comment on above: Performed By: #### B MP #### [place] [phone] CASE MGT INIT ASSESon 2021 CASE MGT INIT ASSES HNO ID: [id number] Author: TITO Whitt Service: ? 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 Last discharge within 30 days: No Advance Directive: Current Advance Directive: Health Care Power of Drosophere Operator In Chart: No Health LiteracyHow often do [...] None Has the Patient Been in a Half-Way Facility in the Past 30 days?: No [...] Completely I feel financially burdened by my nqj-ql-[id number] expenses for my prescription medication:: 0 - Disagree Completely Risk Score: 0 Patient is categorized as: Low risk < 2 Are you interested in bedside delivery of your medications? Yes Is Patient Psychosocially Complex?: No ASSESSMENT AND PLAN: Medical Needs: Medical Needs: None Psychosocial Needs: Psychosocial Needs: None FREEDOM OF CHOICE EXPLAINED: [place] of Choice Given: Yes Level of Care Discussed: Home Care Financial Disclosure Provided: Yes Financial Disclosure Comments: careport Provider List: Home Care Provider list within the patient's requested geographic area shared with the patient/family: Yes within: 15 miles of zip code: [address] Quality and resource use metrics shared with [...] bedside with pt during assessment. Charo Obando [phone]. Home care referrals sent. Daughter to transport at time of discharge. SIGNATURE: TITO Whitt PATIENT NAME: Mary Leal DATE: December 25, 2021 TIME: 11:39 AM PAGER/CONTACT #: [phone] Normal [facility] CBC and Differentialon 12-25 Abs Baso 0.03 k/uL Normal <0.11 [facility] Comment on above: Performed By: #### 5 7021-8 #### [facility] CLIA [id number] [address] [place] [address] [place] Abs [place] 0.45 k/uL Normal <0.87 [facility] Comment on above: Performed By: #### 5 7021-8 #### [facility] CLIA [id number] [place] [address] [place] Abs Neut 3.85 k/uL Normal 1.45-7.50 [facility] Comment on above: Performed By: #### 5 7021-8 #### [facility] CLIA [id number] [place] [address] [place] Absolute nRBC <0.01 Normal <0.01 [facility] Comment on above: Performed By: #### 5 7021-8 #### [facility] CLIA [id number] [address] [place] [address] [place] Basophils/100 WBC (Bld) 0.5 % Normal [facility] Comment on above: Performed By: #### 5 7021-8 #### [facility] CLIA [id number] [address] [place] [address] [place] DTYPE Auto Diff Normal [facility] Comment on above: Performed By: #### 5 7021-8 #### [facility] CLIA [id number] [address] [place] [address] [place] Eosinophils (Bld) [#/Vol] 0.14 10*3/uL Normal <0.46 [facility] Comment on above: Performed By: #### 5 7021-8 #### [facility] CLIA [id number] [address] [place] [address] [place] Eosinophils/100 WBC (Bld) 2.3 % Normal [facility] Comment on above: Performed By: #### 5 7021-8 #### [facility] CLIA [id number] [address] [place] [address] [place] Erythrocyte distribution width (RBC) [Ratio] 11.6 % Normal 11.5-15.0 [facility] Comment on above: Performed By: #### 5 7021-8 #### [facility] CLIA [id number] [address] [place] [address] [place] Hematocrit (Bld) [Volume fraction] 35.2 % Low 36.0-46.0 [facility] Comment on above: Performed By: #### 5 7021-8 #### [facility] CLIA [id number] [address] [place] [address] [place] Hemoglobin (Bld) [Mass/Vol] 11.6 g/dL Normal 11.5-15.5 [facility] Comment on above: Performed By: #### 5 7021-8 #### [facility] CLIA [id number] [place] [address] [place] Lymphocytes (Bld) [#/Vol] 1.47 10*3/uL Normal 1.00-4.00 [facility] Comment on above: Performed By: #### 5 7021-8 #### [facility] CLIA [id number] [place] [address] [place] Lymphocytes/100 WBC (Bld) 24.7 % Normal [facility] Comment on above: Performed By: #### 5 7021-8 #### [facility] CLIA [id number] [address] [place] [address] [place] MCH 29.5 pG Normal 26.0-34.0 [facility] Comment on above: Performed By: #### 5 7021-8 #### [facility] CLIA [id number] [address] [place] [address] [place] MCHC (RBC) [Mass/Vol] 33.0 g/dL Normal 30.5-36.0 [facility] Comment on above: Performed By: #### 5 7021-8 #### [facility] CLIA [id number] [address] [place] [address] [place] MCV (RBC) [Entitic vol] 89.6 fL Normal 80.0-100.0 [facility] Comment on above: Performed By: #### 5 7021-8 #### [facility] CLIA [id number] [address] [place] [address] [place] Monocytes/100 WBC (Bld) 7.6 % Normal [facility] Comment on above: Performed By: #### 5 7021-8 #### [facility] CLIA [id number] [address] [place] [address] [place] Neutrophils/100 WBC (Bld) 64.9 % Normal [facility] Comment on above: Performed By: #### 5 7021-8 #### [facility] CLIA [id number] [address] [place] [address] [place] NRBCs 0.0 /100 WBC Normal 0 [facility] Comment on above: Performed By: #### 5 7021-8 #### [facility] CLIA [id number] [address] [place] [address] [place] Platelet mean volume (Bld) [Entitic vol] 9.0 fL Normal 9.0-12.7 [facility] Comment on above: Performed By: #### 5 7021-8 #### [facility] CLIA [id number] [address] [place] [address] [place] Platelets (Bld) [#/Vol] 271 10*3/uL Normal 150-400 [facility] Comment on above: Performed By: #### 5 7021-8 #### [facility] CLIA [id number] [address] [place] [address] [place] RBC (Bld) [#/Vol] 3.93 10*6/uL Normal 3.90-5.20 [facility] Comment on above: Performed By: #### 5 7021-8 #### [facility] CLIA [id number] [address] [place] [address] [place] WBC (Bld) [#/Vol] 5.96 10*3/uL Normal 3.70-11.00 [facility] Comment on above: Performed By: #### 5 7021-8 #### [facility] CLIA [id number] [address] [place] [address] CONSULTon 12-25-2021 CONSULT HNO ID: [id number] Author: Tri Kowalski APRN.MAINTENANCE JOB TITLES Service: Wound/Ostomy Author Type: Nurse Practitioner Type: Consults Filed: 12/25/2021 11:37 AM Note Text: OSTOMY SERVICE CONSULT 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 CONSULTANT SERVICE DATE: 12/25/2021 SERVICE TIME: 1015 Consultation [...] mL 20 mEq INTRAVENOUS PRN - HYDROmorphone ALCOHOL LAW ENFORCEMENT AGENT 0.5 mg/mL in NaCl 0.9% 100 mL [...] discharge with h (more content not included)... [facility] NURSING PROGon 12-25-2021 NURSING PROG HNO ID: [id number] Author: Marilyn Henning RN Service: ? Author Type: Registered Nurse Type: Nursing Progress Note Filed: 12/25/2021 7:01 PM Note Text: Nursing Progress Note Patient Name: Mary Leal Patient Location: [address]/ __ Daily Note: 0930 Pt AANDOx3. Lap sites intact. ABD tender. ALCOHOL LAW ENFORCEMENT AGENT pump running. Stoma beefy red, dark brown liquid output. Pt stated that the eye pressure felt overnite has resolved. Call remains in place until OBGYN sees pt 12/26. Pt requesting PO pain medication. 1100 Pt up to chair. [address] Ontiveros bedside. 5mg oxy ordered q4 PRN. This note was completed by: Marilyn Henning [facility] NURSING PROG HNO ID: [id number] Author: Beto Ford RN Service: ? Author Type: Registered Nurse Type: Nursing Progress Note Filed: 12/25/2021 6:12 AM Note Text: Nursing Progress Note Patient Name: Mary Leal Patient Location: [place] [address]/FY1K-40 __ Daily Note: Pt has been complaining [...] This note was completed by: Beto Ford [facility] ANES POSTPROC EVALon 022 ANES POSTPROC EVAL HNO ID: [id number] Author: Charisse Aggarwal MD Service: Anesthesiology Author Type: Anesthesiologist Type: Anesthesia Postprocedure Evaluation Filed: 12/24/2021 4:17 PM Note Text: POST ANESTHESIA EVALUATION NOTE : 1970 Procedure Summary Date: 12/24/21 Room / Location: [place] [address] / OR Anesthesia Start: 810 Anesthesia Stop: [...] December 24, 2021 TIME: 4:17 PM CSN: [id number] [facility] ANES PRE-OPon 12-24-2021 ANES PRE-OP HNO ID: [id number] Author: Chayito Ojeda MD Service: Anesthesiology Author [...] December 24, 2021 TIME: 7:27 AM CSN: [id number] [facility] BRIEF OP NOTon 12-24-2021 BRIEF OP NOT HNO ID: [id number] Author: Jenifer Ayala MD Service: Colorectal Author Type: Fellow Type: Brief Op Note Filed: 12/24/2021 12:16 PM Note Text: BRIEF OPERATIVE NOTE - COLORECTAL SURGERY Log ID: [id number] Surgery/Procedure Date: 12/24/2021 Incision/Procedure Start Time: 8:50 AM Incision Close/Procedure End Time: Surgeon(s) and Fiberglass Bonding Machine Tender(s): Surgeon(s) and Role: Panel 1: * [...] December 24, 2021 TIME: 12:10 PM Normal [facility] NURSING PROGon 12-24-2021 NURSING PROG HNO ID: [id number] Author: Marilyn Henning RN Service: ? Author Type: Registered Nurse Type: Nursing Progress Note Filed: 12/24/2021 6:36 PM Note Text: Nursing Progress Note Patient Name: Mary Leal [id number] __ Daily Note: 1815 Pt arrived on floor with 100.2F temperature. Scheduled tylenol administered. Temperature 98.6 at 1816. Surgical incisions ELENI with glue, intact. Ostomy beefy red, producing sweat. Call remains in place. Pt Educated on ALCOHOL LAW ENFORCEMENT AGENT pump usage. Daughter bedside. Bed low and locked. This note was completed [facility]: [facility]: [id number] Author: Marilyn Henning RN Service: ? Author Type: Registered Nurse Type: Nursing Progress Note Filed: 12/24/2021 4:19 PM Note Text: Nursing Progress Note Patient Name: Mary Leal Patient Location: [place] [address] [address] __ Transfer Note: Patient transferred into room/unit [facility] in stable condition. Actions taken: No futher actions taken at this time. Will continue to monitor and check with patient. This note was completed by: Marilyn [facility] NURSING PROG HNO ID: [id number] Author: Dianelys Lopez RN Service: Nursing Author Type: Registered Nurse Type: Nursing Progress Note Filed: 12/24/2021 6:30 AM Note Text: PATIENT EDUCATION TOPIC: PROCEDURE / SURGERY: Pre-op Teaching: Protocols PATIENT NAME: Mary Leal PATIENT LOCATION: [place] READINESS TO LEARN COGNITIVE ABILITY: Alert and [...] REFERRAL (RECOMMENDATION): None Electronically Signed By: Dianelys Eaton [facility] OPERATIVE NOon 12-24-2021 OPERATIVE NO HNO ID: [id number] Author: Mary Obrien MD Service: Colorectal Author Type: Physician Type: Operative Report Filed: 12/24/2021 12:34 PM Note Text: COLON AND RECTAL SURGERY OPERATIVE REPORT PATIENT NAME: Mary Leal ADMISSION DATE: 12/24/2021 LOG ID: [id number] SURGERY/PROCEDURE DATE: 12/24/2021 INCISION/PROCEDURE START TIME: 8:50 AM INCISION CLOSE/PROCEDURE END TIME: AGE: [age] year old SEX: female SURGEON(S)/PROCEDURALI ST(S) AND ELECTRIC STOVE MECHANIC(S): Surgeon(s) and Role: Panel 1: * Mary [...] port site. This was ligated with a pbwdzs-ti-pbdcn Vicryl suture and was confirmed to be [...] Mary Obrien, (more content not included)... Normal [facility] OPERATIVE NO HNO ID: [id number] Author: Pam Wang MD Service: Urogynecology Author Type: Physician Type: Operative Report Filed: 12/28/2021 10:03 AM Note Text: OPERATIVE/PROCEDURE REPORT LOG ID: [id number] SURGERY/PROCEDURE DATE: 12/24/2021 INCISION/PROCEDURE START TIME: 8:50 AM INCISION CLOSE/PROCEDURE END TIME: 1:50 PM SURGEON(S)/PROCEDURALI ST(S) AND ELECTRIC STOVE MECHANIC(S): Surgeon(s) and Role: Panel 1: * Mary [...] of the (more content not included)... Normal [facility] Type and SCR (30D)on 022 ABO/RH(D) Positive [facility] Comment on above: Performed By: #### T SCR30 ####[address] Confirm Blood Typeon 021 ABO/RH(D) Positive [facility] Comment on above: Performed By: #### C ONABO ####[place] [phone] Type and SCR (30D)on 021 ABO/RH(D) Positive [facility] Comment on above: Performed By: #### T SCR30 ####[facility] [place] [address] Nonvisit Note - PTon 021 Nonvisit Note - PT Chart reviewed with eval prepped for scheduled eval. KK [facility] Consenton 01-08-2021 Consent [id number]#1. 00CD:127 Normal [facility] Coding Summary.on 01-06-2021 Coding Summary. CODING DATE: 01/06/[address] [facility] STATUS: Home (Routine DC) PAYOR: Medicaid [facility] DESCRIPTION 0439 CLASS V PHARMACOTHERAPY ADMIT [...] Eileen Scott Date Saved: 01/06/2021 09:01 am [facility] Consent for Procedure/Surger yon 01-04-2021 Consent for Procedure/Surgery [id number]#1. 00CD:127 [facility] Consent for Procedure/Surgery [id number]#1. 00CD:127 [facility] Consent for Treatmenton Consent for Treatment [id number] 0CD:127 [facility] Discharge Instructionson Discharge Instructions [id number]#1. 00CD:127 [facility] Inpatient Patient Summaryon 01-04-2021 Inpatient Patient Summary [place] [address] Clinical Summary Person Information Name: MARY LEAL Age: 50 Years : 1970 Sex: Female PCP: Isatu GÓMEZ DO Marital Status: Race: White Ethnicity: Non- or Language: Kittitian Visit Id: Visit Reason: MIXED INCONTINENCE Speciality: Acuity: Enc Type: Outpatient Med Service: Surgery Arrival: 01/04/2021 12:31:00 Discharge: Dispo Type: Address: [address] [place] [id number] Provider Notes: Diagnosis: Problems Active Decreased bladder [...] This Visit Final Med List: acetaminophen-hydrocod one ([place] 5/325 Tab) By Mouth every 6 hours. [...] Follow up: With: Address: When: Clifford OCONNOR [address] [place] [address], [address], [place] [phone] [facility] (1) Within 2 weeks Comments: Call for followup appointment. Have a great day! Patient Education Information: EU - Cystoscopy with Botox Injection Discharge Instructions (Custom) [facility] IntraOperative Documentson 0 01-04-2021 IntraOperative Documents [id number]#1. 00CD:127 Normal [facility] IntraOperative Documents [id number]#1. 00CD:127 [facility] Main OR Intraoperative Recor don 01-04-2021 Main OR Intraoperative Record IntraOp Document Type FTURO Summary Primary Physician: Clifford OCONNOR MD Finalized Date/Time: 01/04/21 13:27:05 Pt. Name: MARY LEAL Zoya Zuleta/Sex: 1970 Female Med Rec #: [id number] Physician: Clifford OCONNOR MD Financial #: [id number] Pt. Type: O Room/Bed: / Admit/Disch: 01/04/21 12:31:00 - Institution: Case Times FTURO Entry 1 Patient Times In Room 01/04/21 13:07:00 Out Room 01/04/21 13:27:00 Procedure Times Start 01/04/21 13:19:00 Stop 01/04/21 13:23:00 Anesthesia Times Last Modified By: Niecy Tran RN 01/04/21 13:27:01 Case Attendance FTURO Entry 1 Entry 2 Entry 3 Case Attendee Clifford OCONNOR MD OPERATOR AUTOMATED PROCESS, Akin Mejias OPERATOR AUTOMATED PROCESS, Debi Chand Role Performed Surgeon - Primary [...] Case Attendee Niecy Tran RN Role Performed Physical Therapist Technician - Primary Time In 01/04/21 13:07:00 Time Out 01/04/21 13:27:00 Procedure CYSTOSCOPY LOCAL BOTOX INJECTION(.) Comments Last Modified By: Niecy Tran RN 01/04/21 13:27:02 Surgical Procedures FTURO Entry 1 Procedure Description Procedure CYSTOSCOPY LOCAL BOTOX Modifiers . INJECTION Surgeon Description CYSTOSCOPY BOTOX 50 UNITS LOT NUMBER [id number] EXP DATE 08/2023 Primary Procedure Yes Primary [...] By: Niecy Tran RN 01/04/21 13:27 Normal [facility] Main OR Preoperative Recordo n 01-04-2021 Main OR Preoperative Record Holding Area Document Type FTURO Summary Primary Physician: Clifford OCONNOR MD Finalized Date/Time: 01/04/21 13:05:55 Pt. Name: MARY LEAL /Sex: 1970 Female Med Rec #: [id number] Physician: Clifford OCONNOR MD Financial #: [id number] Pt. Type: O Room/Bed: / Admit/Disch: 01/04/21 [...] 12:46 Niecy Tran RN 01/04/21 13:05 Normal [facility] Operative Reporton Operative Report Patient: [...] arranged, F/U in two weeks. . Normal [facility] Comment on above: Result Comment: Elec tronically Signed By: Clifford OCONNOR MD\.br\Date and Time Signed: 01/04/21 13:30 EST Outpatient Surgery Discharge Instructionon 01-04-2021 Outpatient Surgery Discharge Instruction [address] [address] Patient Discharge Instructions PERSON INFORMATION [...] Follow up: With: Address: When: Clifford OCONNOR [address] [place] [address], [address], [place] [phone] Business (1) Within 2 weeks Comments: Call [...] have a fever over 100 degrees. ELVIS Beckwith KRISTEN D, have received the attached patient education materials/instructions and have verbalized understanding: May we do a follow up call? Yes No I was present when discharge instructions were given Patient Signature Date Clinican/Nurse Signature ___ Date You may receive a survey from [employer] asking you to rate your care experience. Your feedback is important and will help us understand what we do well and how we can improve the quality of care we provide to you, your loved ones and our community. It?s an honor to serve you. Thank you for choosing [facility] Normal [facility] XR Shoulder - right 3 Viewso n 12-25-2020 IMPRESSION: NO SIGNIFICANT CHANGE Museum Preparator: CAPRI Transcribe Date/Time: Dec 25 2020 12:18P [...] significant abnormality. - DIVISION OF RADIOLOGY Provider, [facility] - 12/25/2020 * * *Final Report* [...] abnormality. - IMPRESSION IMPRESSION: NO SIGNIFICANT CHANGE Museum Preparator: CAPRI Transcribe Date/Time: Dec 25 2020 12:18P Dictated by : AWA LOPEZ MD This examination was interpreted and the report reviewed and electronically signed by: AWA LOPEZ MD on Dec 25 2020 12:21PM EST [facility] Radiology Study observation (narrative) [facility] XR Shoulder - right 3 ViewsO rdered By: [facility] Provider on 12-25-2020 [facility] PT - Assessmentson 1 PT - Assessments [id number]#1. 00CD:127 Normal [facility] Ambulatory Clinical Summaryo n 11-11-2020 Ambulatory Clinical Summary {[id number] [id number]}CD:[id number] Normal [facility] Patient Educationon 11-11-19 21 Patient [...] your urinary (more content not included)... Normal [facility] Urology Phone Visit- Telehea [facility] 11-03-2020 Urology Phone Visit- Telehealth [...] only communication with the patient located at [address] [place] [address] , with no one else. If it [...] Dawna Marmolejo MD [address] [place] [phone] Additional Instructions: Patient Education Urodynamic Testing Overactive [...] stream His (more content not included)... Normal [facility] Comment on above: Result Comment: Elec tronically Signed By: Dawna Marmolejo MD\.br\Date and Time Signed: 11/03/20 11:59 EST\.br\Electronically Co-Signed By: Christy Gill MA\.br\Date and Time Co-Signed: 10/21/20 12:01 EST Coding Summary.on 10-28-2020 Coding Summary. CODING DATE: 10/28/[address] [facility] DSC STATUS: Home (Routine DC) PAYOR: Medicaid [facility] DESCRIPTION 0161 URINARY STUDIES AND PROCEDURES 0213 [...] Eileen Scott Date Saved: 10/28/2020 11:17 am [facility] Ambulatory Clinical Summaryo n 10-27-2020 Ambulatory Clinical Summary {[id number]}[id number] [facility] Consent for Procedure/Surger yon 10-27-2020 Consent for Procedure/Surgery [id number] .00CD:127 [facility] Consent for Treatmenton 10-07 Consent for Treatment [id number]#1.0 0CD:127 [facility] IntraOperative Documentson 1 12-28-2019 IntraOperative Documents [id number] .00CD:127 [facility] Patient Educationon 10-21-20 20 Patient Education Family [...] or depar (more content not included)... Normal [facility] XR Shoulder - right 3 Viewso n 09-29-2020 IMPRESSION: No acute osseous findings. Museum Preparator: CAPRI Transcribe Date/Time: Sep 29 2020 8:37A [...] abnormality. IMPRESSION IMPRESSION: No acute osseous findings. Museum Preparator: PSCB Transcribe Date/Time: Sep 29 2020 8:37A Dictated by : FLORENCE TORRES MD This examination was interpreted and the report reviewed and electronically signed by: FLORENCE TORRES MD on Sep 29 2020 8:38AM EST [facility] Radiology Study observation (narrative) [facility] XR Shoulder - right 3 ViewsO rdered By: Ccf Provider on 09-29-2020 [facility] PT - Assessmentson 0 PT - Assessments [id number]#1. 00CD:127 [facility] Nonvisit Note - PTon 020 Nonvisit Note - PT Per voicemail: she needs to cancel all of her PT due to personal reasons. [facility] Provider Letteron 09-09-2020 Provider Letter September 09, 2020 MARY LEAL [address] [place] [address] MARY LEAL 1970 Dear Mary Leal, You [...] [address] [facility], [place] [address] [facility] PT - Assessmentson 0 PT - Assessments [id number]. 00CD:127 [facility] PT - Assessments [id number]#1. 00CD:127 [facility] PT - Assessmentson 0 PT - Assessments [id number]#1. 00CD:127 [facility] PT - Consentson 08-31-2020 PT - Consents [id number]#1. 00CD:127 [facility] Pre-Certification Formon Pre-Certification Form [id number] 0CD:127 [facility] Pre-Certification Form [id number]#1.0 0CD:127 [facility] Consent for Procedure/Surger yon 08-26-2020 Consent for Procedure/Surgery [id number]#1.0 0CD:127 [facility] Ambulatory Clinical Summaryo n 08-25-2020 Ambulatory Clinical Summary {[id number]-}CD:[id number] [facility] Patient Educationon 08-25-20 Patient Education Family Medicine [...] an extended amount of time. Only take cxxo-fnx-cqknnwa or prescription medicines for pain, discomfort, or [...] Document Reviewed: 09/07/2009 ExitCare? Patient Information ?2013 [employer]. [facility] Urology Office/Clinic Noteon 08-25-2020 Urology Office/Clinic Note [...] Alzheimer's disease: Mother. Hypertension: Mother and Father. [facility] Comment on above: Result Comment: Elec tronically Signed By: Dawna Marmolejo MD\.br\Date and Time Signed: 08/25/20 10:06 EDT\.br\Electronically Co-Signed By: Mary Hager\.br\Date and Time Co-Signed: 08/25/20 09:51 EDT Coding Summary.on 08-21-2020 Coding Summary. CODING DATE: 08/21/[address] [facility] STATUS: PAYOR: Medicaid EA DESCRIPTION 0271 [...] Raymond CphT Date Saved: 08/21/2020 10:42 am [facility] Consenton 08-21-2020 Consent [id number]#1.0 0CD:127 [facility] Ambulatory Clinical Summaryo n 08-19-2020 Ambulatory Clinical Summary {[id number]}CD:[id number] [facility] Ambulatory Clinical Summary {[id number]}CD:[id number] [facility] Nonvisit Note - PTon 020 Nonvisit Note - PT Chart reviewed for scheduled eval. [facility] Patient Educationon 08-19-20 20 Patient Education Family [...] your urinary (more content not included)... Normal [facility] Urology Phone Visit- [facility] 08-19-2020 Urology Phone Visit- Telehealth Chief Complaint [...] only communication with the patient located at [address] [place], [place] [id number], with no one else. If it is [...] questions/concerns were discussed. Pt. acknowledges understanding. Or[place] [facility] [place] U[place] Procedure Order 2. Dysuria (R30.0: Dysuria) Moderate. Ordered: [facility] [place] Urology Procedure Order 3. Feeling of incomplete bladder emptying (R39.14: Feeling of incomplete bladder emptying) Pt. does not feel that she is emptying. Ordered: [facility]ulatory Ref[facility] Urology Procedure Order 4. Weak urine stream (R39.12: Poor urinary stream) Weak stream w/ moderate hesitancy. Ordered: [facility] [place]ulatory Ref[place] Urology Procedure Order 5. [...] Will order Local anesthesia. ABX sent to [facility] in [place]. Ordered: [facility] Ambulatory Ref[facility] Urology Procedure Order 6. [...] Patient who (more content not included)... Normal [facility] Comment on above: Result Comment: Elec tronically Signed By: Francie BENSON, Dawna Feldman\.br\Date and Time Signed: 08/19/20 08:53 EDT\.br\Electronically Co-Signed By: Christy Gill MA\.br\Date and Time Co-Signed: 08/19/20 08:44 EDT Coding Summary.on 08-12-2020 Coding Summary. CODING DATE: 08/12/[address] [facility] STATUS: Home (Routine DC) PAYOR: Medicaid [...] Demi Fried Date Saved: 08/12/2020 09:42 am [facility] Formson 08-11-2020 Forms [id number]#1.0 0CD:127 [facility] C Urineon 08-09-2020 Bacteria identified Cx Nom [...] Locations R1: This test was performed at: [facility], [address] [place] [address], [facility]- , , [facility] Comment on above: Performed By: #### [id number] ####[place] [address] Ambulatory Clinical Summaryo n 08-07-2020 Ambulatory Clinical Summary {[id number]}CD:[id number] [facility] Patient Educationon 08-07-20 Patient Education Kegel Exercises [...] Document Reviewed: 07/18/2013 ExitCare? Patient Information ?2013 [facility]. Family Medicine Overactive Bladder, Adult The [...] bladder, your (more content not included)... Normal [facility] Urology Office/Clinic Noteon 08-07-2020 Urology [...] setting of nocturia q2hrs and daytime frequency [id number] with painful post void bladder sensation of [...] [address] (more content not included)... Normal [facility] Comment on above: Result Comment: Elec tronically Signed By: Dawna Marmolejo MD\.br\Date and Time Signed: 08/07/20 15:54 EDT\.br\Electronically Co-Signed By: Radha Lopez MA\.br\Date and Time Co-Signed: 08/07/20 15:44 EDT Vital Signs Date Time Vital Sign Value Performing Clinician Facility 07-15-2025 08:57-0400 Body mass index (BMI) [Ratio] 29.01 kg/m2 Ingrid Bhat MD Work Phone: [facility] 07-15-2025 08:57-0400 Body weight 76.66 kg Ingrid Bhat MD Work Phone: [facility] 07-15-2025 08:57-0400 Diastolic blood pressure 90 mm[Hg] Ingrid Bhat MD Work Phone: [facility] 07-15-2025 08:57-0400 Heart rate 72 /min Ingrid Bhat MD Work Phone: [facility] 07-15-2025 08:57-0400 Systolic blood pressure 146 mm[Hg] Ingrid Bhat MD Work Phone: [facility] 06-24-2025 08:57-0400 Body height 162.6 cm Dipti Acevedo DO Work Phone: [facility] 06-24-2025 08:57-0400 Body mass index (BMI) [Ratio] 28.32 kg/m2 Dipti Acevedo DO Work Phone: [facility] 06-24-2025 08:57-0400 Body weight 74.84 kg Dipti Acevedo DO Work Phone: [facility] 06-24-2025 08:57-0400 Diastolic blood pressure 78 mm[Hg] Dipti Acevedo DO Work Phone: [facility] 06-24-2025 08:57-0400 Systolic blood pressure 126 mm[Hg] Dipti Acevedo DO Work Phone: [facility] 06-06-2025 14:19-0400 Body height 162.6 cm Nancy Swenson PA Work Phone: [facility] 06-06-2025 14:19-0400 Body mass index (BMI) [Ratio] 27.12 kg/m2 Nancy Swenson PA Work Phone: [facility] 06-06-2025 14:19-0400 Body temperature 98.2 [degF] Nancy Swenson PA Work Phone: [facility] 06-06-2025 14:19-0400 Body weight 71.67 kg Nancy Swenson PA Work Phone: [facility] 06-06-2025 14:19-0400 Diastolic blood pressure 64 mm[Hg] Nancy Swenson PA Work Phone: [facility] 06-06-2025 14:19-0400 Heart rate 79 /min Nancy Swenson PA Work Phone: [facility] 06-06-2025 14:19-0400 SaO2% (BldA) [Mass fraction] 96 % Nancy Swenson PA Work Phone: [facility] 06-06-2025 14:19-0400 Systolic blood pressure 120 mm[Hg] Nancy Swenson PA Work Phone: [facility] 06-06-2025 09:04-0400 Body height 162.6 cm Alberto Solis MD Work Phone: [facility] 06-06-2025 09:04-0400 Body mass index (BMI) [Ratio] 28.67 kg/m2 Alberto Solis MD Work Phone: [facility] 06-06-2025 09:04-0400 Body weight 75.75 kg Alberto Solis MD Work Phone: [facility] 06-06-2025 09:04-0400 Diastolic blood pressure 70 mm[Hg] Alberto Solis MD Work Phone: [facility] 06-06-2025 09:04-0400 Systolic blood pressure 117 mm[Hg] Alberto Solis MD Work Phone: [facility] 11-12-2024 08:27-0500 Body mass index (BMI) [Ratio] 26.61 kg/m2 Dipti Clementtonia LOAIZA Work Phone: [facility] 11-12-2024 08:27-0500 Body weight 70.31 kg Dipti Acevedo DO Work Phone: [facility] 11-12-2024 08:27-0500 Diastolic blood pressure 84 mm[Hg] Dipti Clementer Work Phone: [facility] 11-12-2024 08:27-0500 Systolic blood pressure 122 mm[Hg] Dipti Clementer Work Phone: [facility] 10-24-2024 09:20-0500 Diastolic blood pressure 70 mm[Hg] IsatuReno Parish Szymanskileigha DO Work Phone: [facility] 10-24-2024 09:20-0500 Heart rate 68 /min Shannon Gómez DO Work Phone: [facility] 10-24-2024 09:20-0500 Respiratory rate 16 /min Shannon Gómez DO Work Phone: [facility] 10-24-2024 09:20-0500 SaO2% (BldA) [Mass fraction] 100 % Shannon Gómez DO Work Phone: [facility] 10-24-2024 09:20-0500 Systolic blood pressure 109 mm[Hg] Shannon Gómez DO Work Phone: [facility] 10-24-2024 08:30-0500 Body temperature 98 [degF] Shannon Gómez DO Work Phone: [facility] 10-24-2024 08:03-0500 Inhaled oxygen flow rate 8 L/min Shannon Gómez DO Work Phone: [facility] 10-24-2024 06:36-0500 Body height 162.56 cm Shannon Gómez DO Work Phone: [facility] 10-24-2024 06:36-0500 Body weight 69.39 kg Shannon Gómez DO Work Phone: [facility] 10-23-2024 10:43-0500 Body height 162.6 cm Radha Cardenas MD Work Phone: [facility] 10-23-2024 10:43-0500 Body mass index (BMI) [Ratio] 26.26 kg/m2 Radha Cardenas MD Work Phone: [facility] 10-23-2024 10:43-0500 Body weight 69.4 kg Radha Cardenas MD Work Phone: [facility] 10-23-2024 10:43-0500 Diastolic blood pressure 80 mm[Hg] Radha Cardenas MD Work Phone: [facility] 10-23-2024 10:43-0500 Heart rate 68 /min Radha Cardenas MD Work Phone: [facility] 10-23-2024 10:43-0500 SaO2% (BldA) [Mass fraction] 98 % Radha Cardenas MD Work Phone: [facility] 10-23-2024 10:43-0500 Systolic blood pressure 112 mm[Hg] Radha Cardenas MD Work Phone: [facility] 10-15-2024 15:04-0500 Body mass index (BMI) [Ratio] 26.61 kg/m2 Dipti Acevedo DO Work Phone: [facility] 10-15-2024 15:04-0500 Body weight 70.31 kg Dipti Acevedo DO Work Phone: [facility] 10-15-2024 15:04-0500 Diastolic blood pressure 68 mm[Hg] Dipti Acevedo DO Work Phone: [facility] 10-15-2024 15:04-0500 Systolic blood pressure 108 mm[Hg] Dipti Acevedo DO Work Phone: [facility] 10-14-2024 08:26-0500 Body height 162.56 cm G. Parish Gómez DO Work Phone: [facility] 10-14-2024 08:26-0500 Body mass index (BMI) [Ratio] 26.2 kg/m2 G. Parish Gómez DO Work Phone: [facility] 10-14-2024 08:26-0500 Body weight 69.39 kg G. Parish Gómez DO Work Phone: [facility] 09-26-2024 16:19-0500 Body height 162.6 cm Ron King DURABLE MEDICAL EQUIPMENT REPAIRER Work Phone: [facility] 09-26-2024 16:19-0500 Body mass index (BMI) [Ratio] 26.64 kg/m2 Ron King DURABLE MEDICAL EQUIPMENT REPAIRER Work Phone: [facility] 09-26-2024 16:19-0500 Body temperature 97.5 [degF] Ron King DURABLE MEDICAL EQUIPMENT REPAIRER Work Phone: [facility] 09-26-2024 16:19-0500 Body weight 70.4 kg Ron King DURABLE MEDICAL EQUIPMENT REPAIRER Work Phone: [facility] 09-26-2024 16:19-0500 Diastolic blood pressure 90 mm[Hg] Ron King DURABLE MEDICAL EQUIPMENT REPAIRER Work Phone: [facility] 09-26-2024 16:19-0500 Heart rate 85 /min Ron King DURABLE MEDICAL EQUIPMENT REPAIRER Work Phone: [facility] 09-26-2024 16:19-0500 SaO2% (BldA) [Mass fraction] 99 % Ron Fernando DURABLE MEDICAL EQUIPMENT REPAIRER Work Phone: [facility] 09-26-2024 16:19-0500 Systolic blood pressure 142 mm[Hg] Ron Jaky DURABLE MEDICAL EQUIPMENT REPAIRER Work Phone: [facility] 09-16-2024 14:56-0500 Body height 162.56 cm [facility] 09-16-2024 14:56-0500 Body mass index (BMI) [Ratio] 25.5 kg/m2 [facility] 09-16-2024 14:56-0500 Body weight 67.58 kg [facility] 09-04-2024 14:30-0400 Body height 162.6 cm Ron Fernando DURABLE MEDICAL EQUIPMENT REPAIRER Work Phone: [facility] 09-04-2024 14:30-0400 Body mass index (BMI) [Ratio] 25.58 kg/m2 Ron Jaky DURABLE MEDICAL EQUIPMENT REPAIRER Work Phone: [facility] 09-04-2024 14:30-0400 Body temperature 97.5 [degF] Ron Jaky DURABLE MEDICAL EQUIPMENT REPAIRER Work Phone: [facility] 09-04-2024 14:30-0400 Body weight 67.59 kg Ron Jaky DURABLE MEDICAL EQUIPMENT REPAIRER Work Phone: [facility] 09-04-2024 14:30-0400 Diastolic blood pressure 76 mm[Hg] Ron Benedicty DURABLE MEDICAL EQUIPMENT REPAIRER Work Phone: [facility] 09-04-2024 14:30-0400 Heart rate 55 /min Ron Jaky DURABLE MEDICAL EQUIPMENT REPAIRER Work Phone: [facility] 09-04-2024 14:30-0400 SaO2% (BldA) [Mass fraction] 99 % Ron King DURABLE MEDICAL EQUIPMENT REPAIRER Work Phone: [facility] 09-04-2024 14:30-0400 Systolic blood pressure 110 mm[Hg] Ron King DURABLE MEDICAL EQUIPMENT REPAIRER Work Phone: [facility] 08-07-2024 09:12-0400 Body height 162.6 cm Radha Cardenas MD Work Phone: [facility] 08-07-2024 09:12-0400 Body mass index (BMI) [Ratio] 26.43 kg/m2 Radha Cardenas MD Work Phone: [facility] 08-07-2024 09:12-0400 Body temperature 97.3 [degF] Radha Cardenas MD Work Phone: [phone] 08-07-2024 09:12-0400 Body weight 69.85 kg Radha Cardenas MD Work Phone: [facility] 08-07-2024 09:12-0400 Diastolic blood pressure 82 mm[Hg] Radha Cardenas MD Work Phone: [facility] 08-07-2024 09:12-0400 Heart rate 68 /min Radha Cardenas MD Work Phone: [facility] 08-07-2024 09:12-0400 SaO2% (BldA) [Mass fraction] 100 % Radha Cardenas MD Work Phone: [facility] 08-07-2024 09:12-0400 Systolic blood pressure 120 mm[Hg] Radha Cardenas MD Work Phone: [facility] 08-01-2024 15:22-0400 Body height 162.6 cm Eliceo Gómez Work Phone: [facility] 08-01-2024 15:22-0400 Body mass index (BMI) [Ratio] 25.73 kg/m2 Eliceo Stephonleigha LOAIZA Work Phone: [facility] 08-01-2024 15:22-0400 Body temperature 96.8 [degF] Eliceo Gómez DO Work Phone: [facility] 08-01-2024 15:22-0400 Body weight 68 kg Eliceo Stephonleigha LOAIZA Work Phone: [facility] 08-01-2024 15:22-0400 Diastolic blood pressure 60 mm[Hg] Eliceo Gómez DO Work Phone: [facility] 08-01-2024 15:22-0400 Heart rate 98 /min Eliceo Gómez DO Work Phone: [facility] 08-01-2024 15:22-0400 SaO2% (BldA) [Mass fraction] 99 % Eliceo Gómez DO Work Phone: [facility] 08-01-2024 15:22-0400 Systolic blood pressure 122 mm[Hg] Eliceo Gómez DO Work Phone: [facility] 07-11-2024 09:44-0400 Body height 162.6 cm Eliceo Gómez DO Work Phone: [facility] 07-11-2024 09:44-0400 Body mass index (BMI) [Ratio] 26.09 kg/m2 Eliceo Gómez DO Work Phone: [facility] 07-11-2024 09:44-0400 Body temperature 97.11 [degF] Eliceo Gómez DO Work Phone: [facility] 07-11-2024 09:44-0400 Body weight 68.95 kg Eliceo Gómez DO Work Phone: [facility] 07-11-2024 09:44-0400 Diastolic blood pressure 64 mm[Hg] Eliceo Gómez DO Work Phone: [facility] 07-11-2024 09:44-0400 Heart rate 86 /min Eliceo Gómez DO Work Phone: [facility] 07-11-2024 09:44-0400 SaO2% (BldA) [Mass fraction] 97 % Eliceo Gómez DO Work Phone: [facility] 07-11-2024 09:44-0400 Systolic blood pressure 108 mm[Hg] Eliceo Gómez DO Work Phone: [facility] 04-12-2024 13:10-0400 Diastolic blood pressure 75 mm[Hg] Milagros Franco MD, PhD Work Phone: [facility] 04-12-2024 13:10-0400 Heart rate 62 /min Milagros Franco MD, PhD Work Phone: [facility] 04-12-2024 13:10-0400 Respiratory rate 20 /min Milagros Franco MD, PhD Work Phone: [facility] 04-12-2024 13:10-0400 SaO2% (BldA) [Mass fraction] 100 % Milagros Franco MD, PhD Work Phone: [facility] 04-12-2024 13:10-0400 Systolic blood pressure 121 mm[Hg] Milagros Franco MD, PhD Work Phone: [facility] 04-12-2024 11:35-0400 Body height 162.6 cm Milagros Franco MD, PhD Work Phone: [facility] 04-12-2024 11:35-0400 Body mass index (BMI) [Ratio] 25.75 kg/m2 Milagros Franco MD, PhD Work Phone: [facility] 04-12-2024 11:35-0400 Body temperature 97.9 [degF] Milagros Franco MD, PhD Work Phone: [facility] 04-12-2024 11:35-0400 Body weight 68.04 kg Milagros Franco MD, PhD Work Phone: [facility] 02-27-2024 09:48-0400 Body height 162.6 cm Flower Lopez APRN.MAINTENANCE [employer]OB [employer]LES Work Phone: [facility] 02-27-2024 09:48-0400 Body mass index (BMI) [Ratio] 26.45 kg/m2 Flower Lopez APRN.MAINTENANCE [employer]LES Work Phone: [facility] 02-27-2024 09:48-0400 Body weight 69.9 kg Flower Jessica 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 CONSULTANT.MAINTENANCE [employer]OB TITLES Work Phone: [facility] 02-27-2024 09:48-0400 Diastolic blood pressure 93 mm[Hg] Flower Jessica 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 CONSULTANT.MAINTENANCE JOB TITLES Work Phone: [facility] 02-27-2024 09:48-0400 Heart rate 62 /min Flower Jessica 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 CONSULTANT.MAINTENANCE JOB TITLES Work Phone: [facility] 02-27-2024 09:48-0400 Systolic blood pressure 146 mm[Hg] Flower Jessica 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 CONSULTANT.MAINTENANCE [employer]OB TITLES Work Phone: [facility] 01-25-2024 09:05-0400 Body height 162.6 cm [employer] Work Phone: [facility] 01-25-2024 09:05-0400 Body weight 68.04 kg [employer] Work Phone: [facility] 01-25-2024 09:05-0400 Heart rate 84 /min [employer] Work Phone: [facility] 01-25-2024 09:05-0400 Respiratory rate 16 /min [employer] Work Phone: [facility] 01-10-2024 12:40-0500 Body height 162.6 cm Cullen Dawkins MD Work Phone: [facility] 01-10-2024 12:40-0500 Body mass index (BMI) [Ratio] 27.89 kg/m2 Cullen Dawkins MD Work Phone: [facility] 01-10-2024 12:40-0500 Body weight 73.7 kg Cullen Dawkins MD Work Phone: [facility] 12-20-2023 12:21-0500 Body height 162.6 cm [facility] 12-20-2023 12:21-0500 Body mass index (BMI) [Ratio] 28.38 kg/m2 [facility] 13 [facility] 12-20-2023 12:21-0500 Body temperature 98.2 [degF] [facility] 13 [facility] 12-20-2023 12:21-0500 Body weight 75 kg [facility] 13 [facility] 12-20-2023 12:21-0500 Diastolic blood pressure 90 mm[Hg] [facility] 13 [facility] 12-20-2023 12:21-0500 Heart rate 72 /min [facility] 13 [facility] 12-20-2023 12:21-0500 Respiratory rate 18 /min [facility] 13 [facility] 12-20-2023 12:21-0500 SaO2% (BldA) [Mass fraction] 96 % [facility] 12-20-2023 12:21-0500 Systolic blood pressure 138 mm[Hg] [facility] 13 [facility] 11-23-2023 08:14-0500 Body height 162.56 cm DO Shannon Szymanskijerometomasa Work Phone: [facility] 11-23-2023 08:14-0500 Body weight 70.3 kg DO Shannon Ngtomasa Work Phone: [facility] 08-12-2023 07:08-0400 Diastolic blood pressure 65 mm[Hg] Lex Salmon MD Work Phone: [facility] 08-12-2023 07:08-0400 Heart rate 77 /min Lex Salmon MD Work Phone: [facility] 08-12-2023 07:08-0400 SaO2% (BldA) [Mass fraction] 98 % Lex Salmon MD Work Phone: [facility] 08-12-2023 07:08-0400 Systolic blood pressure 132 mm[Hg] Lex Salmon MD Work Phone: [facility] 08-12-2023 06:48-0400 Respiratory rate 13 /min Lex Salmon MD Work Phone: [facility] 08-12-2023 00:25-0400 Body height 162.6 cm Lex Salmon MD Work Phone: [facility] 08-12-2023 00:25-0400 Body mass index (BMI) [Ratio] 28.01 kg/m2 Lxe Salmon MD Work Phone: [facility] 08-12-2023 00:25-0400 Body temperature 97.59 [degF] Lex Salmon MD Work Phone: [facility] 08-12-2023 00:25-0400 Body weight 74.03 kg Lex Salmon MD Work Phone: [facility] 07-31-2023 14:27-0400 Body height 162.6 cm Nelsy Chávez 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 CONSULTANT.MAINTENANCE JOB TITLES Work Phone: [facility] 07-31-2023 14:27-0400 Body weight 69.85 kg Nelsy Chávez 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 CONSULTANT.MAINTENANCE [employer]ITLES Work Phone: [facility] 07-31-2023 14:27-0400 Diastolic blood pressure 96 mm[Hg] Nelsy Chávez 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 CONSULTANT.MAINTENANCE JOB [employer]ITLES Work Phone: [facility] 07-31-2023 14:27-0400 Heart rate 76 /min Nelsy Chávez 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 CONSULTANT.MAINTENANCE JOB [employer]ITLES Work Phone: [facility] 07-31-2023 14:27-0400 Systolic blood pressure 136 mm[Hg] Nelsy Chávez 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 CONSULTANT.MAINTENANCE [employer]OB [employer]ITLES Work Phone: [facility] 06-13-2023 10:37-0400 Body height 162.56 cm Eliceo Gómez Work Phone: [facility] [address] DO Work Phone: 06-13-2023 10:37-0400 Body mass index (BMI) [Ratio] 27.46 kg/m2 Eliceo Gómez Work Phone: [facility] [address] DO Work Phone: 06-13-2023 10:37-0400 Body surface area Derived from formula 1.78 m2 Eliceo Gómez Work Phone: [facility] [address] DO Work Phone: 06-13-2023 10:37-0400 Body weight 72.58 kg Eliceo Gómez Work Phone: [facility] [address] DO Work Phone: 06-13-2023 10:37-0400 Diastolic blood pressure 70 mm[Hg] Eliceo Asiya Szymanskijerometomasa Work Phone: [facility] [address] DO Work Phone: 06-13-2023 10:37-0400 Heart rate 70 /min Eliceo Asiya Szymanskileigha Work Phone: [facility] [address] DO Work Phone: 06-13-2023 10:37-0400 Systolic blood pressure 100 mm[Hg] Eliceo Ellis Stephonjerometomasa Work Phone: [facility] [address] DO Work Phone: 06-13-2023 10:37-0400 11 1 Eliceo Asiya Gómez Work Phone: [facility] [address] DO Work Phone: Comment on above: PHQ-9 06-05-2023 13:23-0400 Diastolic blood pressure 68 mm[Hg] DO Shannon Gómez Work Phone: [facility] 06-05-2023 13:23-0400 Heart rate 72 /min DO Shannon Gómez Work Phone: [facility] 06-05-2023 13:23-0400 Respiratory rate 18 /min DO Shannon Gómez Work Phone: [facility] 06-05-2023 13:23-0400 SaO2% (BldA) [Mass fraction] 97 % DO Shannon Gómze Work Phone: [facility] 06-05-2023 13:23-0400 Systolic blood pressure 129 mm[Hg] DO Shannon Gómez Work Phone: [facility] 06-05-2023 09:32-0400 Body height 162.56 cm DO Shannon Gómez Work Phone: [facility] 06-05-2023 09:32-0400 Body weight 73.9 kg DO Shannon Gómez Work Phone: [facility] 06-05-2023 09:31-0400 Body temperature 97.5 [degF] DO Shannon Gómez Work Phone: [facility] 01-16-2023 13:18-0400 Body height 162.6 cm [facility] 01-16-2023 13:18-0400 Body weight 68.04 kg [facility] 11-21-2022 08:00-0500 Body height 162.6 cm [facility] 2 Work Phone: [facility] 11-21-2022 08:00-0500 Body weight 64.86 kg [facility] 2 Work Phone: [facility] 10-11-2022 10:08-0500 Body height 162.6 cm Isra Masters DO Work Phone: [facility] 10-11-2022 10:08-0500 Body weight 78.02 kg Isra Galarzae DO Work Phone: [facility] 10-11-2022 10:08-0500 Diastolic blood pressure 97 mm[Hg] Isra Masters DO Work Phone: [facility] 10-11-2022 10:08-0500 Heart rate 89 /min Isra Masters DO Work Phone: [facility] 10-11-2022 10:08-0500 Systolic blood pressure 141 mm[Hg] Isra Masters DO Work Phone: [facility] 10-10-2022 14:30-0500 Body height 162.56 cm Beto Cartagena Other Present Other 10-10-2022 14:30-0500 Body mass index (BMI) [Ratio] 28.66 kg/m2 Beto Cartagena Other Present Other 10-10-2022 14:30-0500 Body weight 75.75 kg Beto Thadxa Other Present Other 07-26-2022 11:13-0400 Body height 162.6 cm Mary Obrien MD Work Phone: [facility] 07-26-2022 11:13-0400 Body temperature 97.5 [degF] Mary Obrien MD Work Phone: [facility] 07-26-2022 11:13-0400 Body weight 77.56 kg Mary Obrien MD Work Phone: [facility] 07-26-2022 11:13-0400 Diastolic blood pressure 83 mm[Hg] Mary Obrien MD Work Phone: [facility] 07-26-2022 11:13-0400 Heart rate 95 /min Mary Obrien MD Work Phone: [facility] 07-26-2022 11:13-0400 SaO2% (BldA) [Mass fraction] 97 % Mary Obrien MD Work Phone: [facility] 07-26-2022 11:13-0400 Systolic blood pressure 110 mm[Hg] Mary Obrien MD Work Phone: [facility] 05-26-2022 11:45-0400 Body height 162.56 cm Beto Snyder Other Present Other 05-26-2022 11:45-0400 Body mass index (BMI) [Ratio] 29.18 kg/m2 Beto Snyder Other Present Other 05-26-2022 11:45-0400 Body weight 77.11 kg Beto Snyder Other [email or web address] Other 05-12-2022 09:06-0400 Diastolic blood pressure 80 mm[Hg] Eliceo Gómez Work Phone: [facility] DO Work Phone: 05-12-2022 09:06-0400 Systolic blood pressure 126 mm[Hg] Eliceo Gómez Work Phone: [facility] DO Work Phone: 05-12-2022 08:57-0400 Body height 162.56 cm Eliceo Gómez Work Phone: [facility] DO Work Phone: 05-12-2022 08:57-0400 Body mass index (BMI) [Ratio] 29.87 kg/m2 Eliceo Gómez Work Phone: [facility] DO Work Phone: 05-12-2022 08:57-0400 Body surface area Derived from formula 1.84 m2 Eliceo Ellis Stephonleigha Work Phone: [facility] DO Work Phone: 05-12-2022 08:57-0400 Body weight 78.93 kg Eliceo Gómez Work Phone: [facility] DO Work Phone: 05-12-2022 08:57-0400 Diastolic blood pressure 80 mm[Hg] Eliceo Gómez Work Phone: [facility] DO Work Phone: 05-12-2022 08:57-0400 Heart rate 68 /min Eliceo Gómez Work Phone: [facility] DO Work Phone: 05-12-2022 08:57-0400 Systolic blood pressure 130 mm[Hg] Eliceo Gómez Work Phone: [facility] DO Work Phone: 05-10-2022 12:30-0400 Body height 162.56 cm Allison Arita Other [place] [employer] Other 05-10-2022 12:30-0400 Body mass index (BMI) [Ratio] 29.18 kg/m2 Allison Arita Other [place] [employer] Other 05-10-2022 12:30-0400 Body temperature 97.3 [degF] Allison Arita Other [place] [employer] Other 05-10-2022 12:30-0400 Body weight 77.11 kg Allison Arita Other Present Other 05-10-2022 12:30-0400 Respiratory rate 18 /min Allison Arita Other Present Other 05-10-2022 12:30-0400 SaO2% (BldA) [Mass fraction] 98 % Allison Arita Other Present Other 04-22-2022 12:04-0400 Body height 162.6 cm Jessi Sheets APRN.MAINTENANCE [employer] Work Phone: [facility] 04-22-2022 12:04-0400 Body weight 77.56 kg Jessi Sheets APRN.MAINTENANCE [employer] Work Phone: [facility] 04-22-2022 12:04-0400 Diastolic blood pressure 68 mm[Hg] Jessi Sheets 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 CONSULTANT.MAINTENANCE [employer]LES Work Phone: [facility] 04-22-2022 12:04-0400 Heart rate 76 /min Jessi Sheets APRN.MAINTENANCE [employer] Work Phone: [facility] 04-22-2022 12:04-0400 SaO2% (BldA) [Mass fraction] 98 % Jessi Sheets 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 CONSULTANT.MAINTENANCE [employer]LES Work Phone: [facility] 04-22-2022 12:04-0400 Systolic blood pressure 104 mm[Hg] Jessi Sheets APRN.MAINTENA[employer]CE [employer] Work Phone: [facility] 03-15-2022 16:30-0400 Body height 162.56 cm Beto Snyder Other Present Other 03-15-2022 16:30-0400 Body mass index (BMI) [Ratio] 30.55 kg/m2 Beto Snyder Other Present Other 03-15-2022 16:30-0400 Body weight 80.74 kg Beto Snyder Other Present Other 03-15-2022 08:36-0400 Body height 162.6 cm Isra Masters DO Work Phone: [facility] 03-15-2022 08:36-0400 Body weight 83.01 kg Isra Masters DO Work Phone: [facility] 03-15-2022 08:36-0400 Diastolic blood pressure 87 mm[Hg] Isra Masters DO Work Phone: [facility] 03-15-2022 08:36-0400 Heart rate 85 /min Isra Masters DO Work Phone: [facility] 03-15-2022 08:36-0400 SaO2% (BldA) [Mass fraction] 100 % Isra Masters DO Work Phone: [facility] 03-15-2022 08:36-0400 Systolic blood pressure 133 mm[Hg] Isra Masters DO Work Phone: [facility] 03-14-2022 10:23-0400 Body height 162.6 cm Pacc 4 Work Phone: [facility] 03-14-2022 10:23-0400 Body temperature 97.2 [degF] Pacc 4 Work Phone: [facility] 03-14-2022 10:23-0400 Body weight 83.01 kg Pacc 4 Work Phone: [facility] 03-14-2022 10:23-0400 Diastolic blood pressure 76 mm[Hg] Pacc 4 Work Phone: [facility] 03-14-2022 10:23-0400 Heart rate 74 /min Pacc 4 Work Phone: [facility] 03-14-2022 10:23-0400 Respiratory rate 16 /min Pacc 4 Work Phone: [facility] 03-14-2022 10:23-0400 SaO2% (BldA) [Mass fraction] 98 % Pacc 4 Work Phone: [facility] 03-14-2022 10:23-0400 Systolic blood pressure 114 mm[Hg] Pacc 4 Work Phone: [facility] 02-18-2022 09:43-0400 Body height 162.6 cm Nelsy Chávez 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 CONSULTANT.MAINTENANCE [employer]LES Work Phone: [facility] 02-18-2022 09:43-0400 Body weight 80.29 kg Nelsy Chávez 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 CONSULTANT.MAINTENANCE [employer]LES Work Phone: [facility] 02-18-2022 09:43-0400 Diastolic blood pressure 70 mm[Hg] Nelsy Chávez 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 CONSULTANT.MAINTENANCE [employer]LES Work Phone: [facility] 02-18-2022 09:43-0400 Systolic blood pressure 110 mm[Hg] Nelsy Chávez 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 CONSULTANT.MAINTENANCE [employer] Work Phone: [facility] 02-08-2022 14:52-0400 Body height 162.6 cm Mary Obrien MD Work Phone: [facility] 02-08-2022 14:52-0400 Body weight 83.01 kg Mary Obrien MD Work Phone: [facility] 02-08-2022 14:52-0400 Diastolic blood pressure 76 mm[Hg] Mary Obrien MD Work Phone: [facility] 02-08-2022 14:52-0400 Heart rate 79 /min Mary Obrien MD Work Phone: [facility] 02-08-2022 14:52-0400 SaO2% (BldA) [Mass fraction] 97 % Mary Obrien MD Work Phone: [facility] 02-08-2022 14:52-0400 Systolic blood pressure 113 mm[Hg] Mary Obrien MD Work Phone: [facility] 02-08-2022 11:19-0400 Body weight 83.01 kg Magali Mitchell 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 CONSULTANT.MAINTENANCE [employer]LES Work Phone: [facility] 02-08-2022 11:19-0400 Diastolic blood pressure 76 mm[Hg] Magali Mitchell 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 CONSULTANT.MAINTENANCE [employer] Work Phone: [facility] 02-08-2022 11:19-0400 Heart rate 74 /min Magali Mitchell 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 CONSULTANT.MAINTENANCE [employer]LES Work Phone: [facility] 02-08-2022 11:19-0400 Systolic blood pressure 113 mm[Hg] Magali Mitchell 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 CONSULTANT.MAINTENANCE [employer] Work Phone: [facility] 10-20-2021 09:45-0500 Body height 162.56 cm Beto Snyder Other Present Other 10-20-2021 09:45-0500 Body mass index (BMI) [Ratio] 31.41 kg/m2 Beto Snyder Other Present Other 10-20-2021 09:45-0500 Body weight 83.01 kg Beto Snyder Other Present Other 08-19-2021 17:10-0400 Body height 162.56 cm Erica Kingston Other Present Other 08-19-2021 17:10-0400 Body mass index (BMI) [Ratio] 31.24 kg/m2 Erica Vashti Other Present Other 08-19-2021 17:10-0400 Body temperature 97.3 [degF] Erica Kingston Other Present Other 08-19-2021 17:10-0400 Body weight 82.56 kg Erica Kingston Other Present Other 08-19-2021 17:10-0400 Diastolic blood pressure 82 mm[Hg] Erica Kumarmond Other Present Other 08-19-2021 17:10-0400 Respiratory rate 18 /min Erica Kingston Other Present Other 08-19-2021 17:10-0400 SaO2% (BldA) [Mass fraction] 98 % Erica Kingston Other Present Other 08-19-2021 17:10-0400 Systolic blood pressure 126 mm[Hg] Erica Kumarmond Other Present Other 08-13-2021 10:15-0400 Body height 162.56 cm Tita Ginty Other Present Other 08-13-2021 10:15-0400 Body mass index (BMI) [Ratio] 30.89 kg/m2 Tita Ginty Other Present Other 08-13-2021 10:15-0400 Body temperature 6 [degF] Tita Ginty Other Present Other 08-13-2021 10:15-0400 Body weight 81.65 kg Tita Ginty Other Present Other 08-13-2021 10:15-0400 SaO2% (BldA) [Mass fraction] 99 % Tita Ginty Other Present Other 07-28-2021 09:30-0400 Body height 162.56 cm Beto Snyder Other Present Other 07-28-2021 09:30-0400 Body mass index (BMI) [Ratio] 30.89 kg/m2 Beto Snyder Other Present Other 07-28-2021 09:30-0400 Body weight 81.65 kg Beto Snyder Other Present Other Encounters Encounter Date Encounter Type Care Provider Facility Start: 07-29-2025 End: 07-29-2025 Orders Only Alberto Solis MD Work Phone: [facility] Department of [facility] Comment on above: Gastroparesis (Prima ry Dx); Diarrhea, unspecified type; Flatulence Start: 07-21-2025 End: 07-21-2025 ambulatory Ace Ahumada MD Facility:[facility] Start: 07-16-2025 ambulatory INGRID BHAT [facility] Start: 07-15-2025 End: 07-15-2025 Office outpatient new 60 minutes Ingrid Bhat MD Work Phone: [facility], A Department of [facility] Comment on above: Neuropathy (Primary Dx); B12 deficiency; Hyperreflexia Start: 07-15-2025 End: 07-15-2025 ambulatory INGRID BHAT [facility] Start: 07-11-2025 End: 07-11-2025 ambulatory DIPTI ACEVEDO Not Available Start: 07-09-2025 End: 07-09-2025 Office outpatient visit 15 minutes Chantale Sweet PA Work Phone: [facility] Comment on above: Rash and other nonsp ecific skin eruption (Primary Dx); Neoplasm of unspecified behavior of bone, soft tissue, and skin Start: 07-09-2025 End: 07-09-2025 ambulatory CHANTALE SWEET Not Available Start: 07-09-2025 End: 07-09-2025 Bamboo flowsheet [facility] Work Phone: [facility] Start: 07-09-2025 End: 07-09-2025 [employer] [facility] Work Phone: [facility] Start: 07-03-2025 End: 07-09-2025 Follow-up encounter Alberto Solis MD Work Phone: [facility] Comment on above: Surgical Pathology Start: 07-01-2025 End: 07-01-2025 Patient encounter procedure Monica Burns DURABLE MEDICAL EQUIPMENT REPAIRER-C -[facility] [address] Cl[facility] Work Phone: Start: 07-01-2025 End: 07-01-2025 ambulatory Shannon Gómez DO Work Phone: [facility] Work Phone: Start: 06-27-2025 End: 06-27-2025 Evaluation and management of inpatient ALBERTO SOLIS [facility] Start: 06-25-2025 End: 06-25-2025 Clinisync Result Encounter Generic External Data Provider [facility] External Department Unsolicited Start: 06-25-2025 End: 06-25-2025 Clinisync Result Encounter Generic External Data Provider [facility] External Department Unsolicited Start: 06-24-2025 End: 06-24-2025 Patient encounter status Dipti Acevedo DO Work Phone: [facility] Start: 06-24-2025 End: 06-24-2025 Periodic preventive med est patient 40-64yrs Dipti Acevedo DO Work Phone: [facility] Comment on above: Encounter for gyneco logical examination without abnormal finding; Encounter for Papanicolaou smear of vagina; Breast cancer screening by mammogram; Hormone replacement therapy; Chronic vulvitis; Night sweats; Dyspareunia in female; Erythema Start: 06-24-2025 End: 06-24-2025 ambulatory DIPTI ACEVEDO Not Available Start: 06-06-2025 End: 06-06-2025 Office outpatient visit 15 minutes Nancy Swenson PA Work Phone: [place] [phone] Comment on above: Mild persistent asth ma with acute exacerbation (HCC) (Primary Dx) Start: 06-06-2025 End: 06-06-2025 ambulatory NANCY SWENSON Not Available Start: 06-06-2025 End: 06-06-2025 Office outpatient new 45 minutes Vicki Roche DO Work Phone: [facility] Department of [facility] Comment on above: Gastroparesis (Prima ry Dx); Esophageal dysphagia; Gastroesophageal reflux disease with esophagitis without hemorrhage; Diarrhea, unspecified type; Flatulence Start: 06-06-2025 End: 06-06-2025 ambulatory ALBERTO SOLIS [facility] Start: 06-04-2025 End: 06-05-2025 Telephone encounter Joanna Piper [facility] Department of [facility] Comment on above: Results Start: 05-19-2025 End: 05-19-2025 ambulatory Ace Ahumada MD Facility:[facility] Start: 05-14-2025 ambulatory [facility] Start: 05-13-2025 ambulatory [facility] Start: 05-05-2025 End: 05-05-2025 ambulatory Ace Ahumada MD Facility:[facility] Start: 04-30-2025 End: 04-30-2025 ambulatory Shannon Gómez DO Work Phone: [facility] Work Phone: Start: 04-30-2025 End: 04-30-2025 Patient encounter procedure Salma Cavazos DO -[facility] [place] Work Phone: Start: 04-21-2025 End: 04-21-2025 Dex Christensen MD Work Phone: [facility] Comment on above: Other migraine witho ut status migrainosus, not intractable Start: 04-14-2025 End: 04-14-2025 ambulatory Ace Ahumada MD Facility:[facility] Start: 03-17-2025 End: 03-17-2025 ambulatory Ace Ahumada MD Facility:[facility] Start: 02-25-2025 End: 02-25-2025 Patient encounter procedure Shannon Gómez DO Work Phone: [facility] [address] [facility] Work Phone: Start: 02-25-2025 End: 02-25-2025 ambulatory Shannon Gómez DO Work Phone: [facility] Work Phone: Start: 02-24-2025 End: 03-10-2025 Telephone encounter Dipti Acevedo DO Work Phone: [facility] Start: 02-17-2025 End: 02-17-2025 Patient encounter procedure Shannon Gómez DO Work Phone: [facility] [address] Work Phone: Start: 02-17-2025 End: 02-17-2025 ambulatory Shannon Gómez DO Work Phone: [facility] Work Phone: Start: 01-25-2025 End: [...] 12-16-2024 End: 12-16-2024 Patient encounter procedure Shannon Lugo Dalia DO Work Phone: [facility] [address] Work Phone: Start: 12-16-2024 End: 12-16-2024 ambulatory IsatuReno Parish Dalia DO Work Phone: [facility] Work Phone: Start: 12-11-2024 End: 12-11-[address] [place] [address] Start: 12-10-2024 End: 12-11-2024 Refill Demi Machado [facility] Comment on above: Other migraine witho ut status migrainosus, not intractable Start: 11-26-2024 End: 11-26-2024 Refill Eliceo Gómez DO Work Phone: [facility] Comment on above: Restless legs syndro me Start: 11-20-2024 End: 11-20-2024 ambulatory Shannon Lugo Dalia DO Work Phone: [facility] Work Phone: Start: 11-20-2024 End: 11-20-2024 Patient encounter procedure Shannon Gómez DO Work Phone: [facility] Work Phone: Start: 11-19-2024 End: 11-19-2024 Bamboo flowsheet Nelsy Fernándezer 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 CONSULTANT-MAINTENANCE [employer] Work Phone: [facility] Start: 11-19-2024 End: 11-19-2024 Bamboo flowsheet Nelsy A Felter 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 CONSULTANT-MAINTENANCE [employer]LES Work Phone: [facility] Start: 11-19-2024 End: 11-19-2024 Office outpatient visit 15 minutes Nelsy Guzman Felter 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 CONSULTANT-MAINTENANCE [employer] Work Phone: [facility] Comment on above: Seborrheic keratosis ; Lentigines; Capillary angioma Start: 11-19-2024 End: 11-19-2024 ambulatory NELSY Guzman FELTER Not Available Start: 11-14-2024 End: 11-14-2024 Patient encounter procedure Shannon Gómez DO Work Phone: [facility] Work Phone: Start: 11-14-2024 End: 11-14-2024 ambulatory Shannon Szymanskijerometomasa DO Work Phone: [facility] Work Phone: Start: 11-12-2024 End: 11-12-2024 Postop follow up visit related to original px Dipti Acevedo DO Work Phone: [facility] Comment on above: Aftercare following surgery Start: 11-12-2024 End: 11-12-2024 ambulatory DIPTI ACEVEDO Not Available Start: 11-11-2024 End: 11-11-2024 ambulatory Ace Ahumada MD Facility:[facility] Start: 11-04-2024 End: 12-28-2024 ambulatory Shannon GÓMEZ Facility:[facility] Start: 10-28-2024 End: 10-28-2024 Postop follow up visit related to original px Dipti Acevedo DO Work Phone: [facility] Comment on above: Aftercare following surgery Start: 10-28-2024 End: 10-28-2024 ambulatory DIPTI ACEVEDO Not Available Start: 10-28-2024 ambulatory Shannon Ramos ty:[facility] Start: 10-24-2024 End: 10-24-2024 Admission to same day surgery center Shannon Gómez DO Work Phone: [facility] [place] Start: 10-24-2024 End: 10-24-2024 ambulatory Dipti Acevedo Facility:[facility] Start: 10-23-2024 End: 10-23-2024 Office outpatient visit 40 minutes Radha Cardenas MD Work Phone: Gastroenterology and Hepatology [facility] Comment on above: Chronic diarrhea (Pr imary Dx); Chronic abdominal pain; Bloating; Inadequate oral intake; [place] grade D esophagitis; Gastroparesis Start: 10-23-2024 ambulatory Shannon Ramos ty:[facility] Start: 10-15-2024 End: 10-15-2024 Office outpatient visit 25 minutes Dipti Acevedo DO Work Phone: [facility] Comment on above: PCB (post coital ble eding); Granulation tissue; Hymen abnormality Start: 10-15-2024 End: 10-15-2024 ambulatory DIPTI ACEVEDO Not Available Start: 10-14-2024 End: 10-14-2024 Patient encounter procedure Shannon Gómez DO Work Phone: [facility] Work Phone: Start: 10-10-2024 End: 10-10-2024 Patient encounter procedure Shannon Gómez DO Work Phone: [facility] [address] [facility] Work Phone: Start: 10-10-2024 End: 10-10-2024 ambulatory Anibal N [place] Facility:[facility] Start: 10-09-2024 End: 10-09-2024 ambulatory Anibal N [place] Facility:[facility] Start: 10-09-2024 Non-patient / Non-visit Shannon polk Dalia DO Work Phone: [facility] Work Phone: Start: 09-27-2024 End: 09-27-2024 Office outpatient visit 15 minutes Dipti Acevedo DO Work Phone: [facility] Comment on above: PCB (post coital ble eding) (Primary Dx); Granulation tissue Start: 09-27-2024 End: 09-27-2024 ambulatory DIPTI ACEVEDO Not Available Start: 09-26-2024 End: 09-26-2024 Office outpatient visit 15 minutes Ron King DURABLE MEDICAL EQUIPMENT REPAIRER Work Phone: [phone] Comment on above: Degenerative disc di sease, cervical (Primary Dx) Start: 09-26-2024 End: 09-27-2024 ambulatory RON KING Not Available Start: 09-24-2024 End: 09-24-2024 Office outpatient visit 15 minutes Dipti Acevedo DO Work Phone: [facility] Comment on above: Granulation tissue; Hymen abnormality Start: 09-24-2024 End: 09-24-2024 ambulatory DIPTI ACEVEDO Not Available Start: 09-16-2024 End: 09-16-2024 ambulatory [facility] Work Phone: Start: 09-16-2024 End: 09-16-2024 Patient encounter procedure [facility] Work Phone: Start: 09-04-2024 End: 09-04-2024 Office outpatient visit 15 minutes Ron King DURABLE MEDICAL EQUIPMENT REPAIRER Work Phone: [phone] Comment on above: Anxiety (Primary Dx) Urinary frequency; Urinary urgency; Burning with urination; Erythema; Chronic vulvitis; Night sweats Start: 09-04-2024 End: 09-04-2024 ambulatory RON KING Not Available Start: 08-27-2024 End: 08-27-2024 ambulatory ELICEO GÓMEZ Not Available Start: 08-26-2024 ambulatory NA LI Facility:[facility] Start: 08-07-2024 End: 08-07-2024 Office outpatient visit 40 minutes Radha Cardenas MD Work Phone: Gastroenterology and Hepatology [facility] Comment on above: Chronic abdominal pa in (Primary Dx); Avoidant-restrictive food intake disorder (ARFID); Bloating; Gastroparesis Start: 08-07-2024 ambulatory NA LI Facility:[facility] Start: 08-05-2024 End: 08-05-2024 ambulatory Ace Ahumada MD Facility:[facility] Start: 08-01-2024 End: 08-01-2024 Office outpatient visit 15 minutes Eliceo Gómez DO Work Phone: [facility] [phone] Comment on above: Oral candidiasis (Pr imary Dx); Tongue pain Start: 08-01-2024 End: 08-01-2024 ambulatory ELICEO GÓMEZ Not Available Start: 07-26-2024 End: 07-26-2024 ambulatory [facility] Start: 07-11-2024 End: 07-11-2024 Bamboo flowsheet Eliceo Gómez DO Work Phone: [facility] [phone] Start: 07-11-2024 End: 07-11-2024 Bamboo flowsheet Eliceo Gómez DO Work Phone: [phone] Start: 07-11-2024 End: 07-11-2024 Office outpatient visit 15 minutes Eliceo Gómez DO Work Phone: [facility] 230 Comment on above: Soft tissue mass (Pr imary Dx); Gastro-esophageal reflux disease without esophagitis; Gastroparesis; Mild intermittent asthma, unspecified whether complicated (CMS/HCC) Start: 06-27-2024 End: 06-27-2024 Bamboo flowsheet Kathie Amezquita DPM Work Phone: [facility] Start: 06-27-2024 End: 06-27-2024 Bamboo flowscarlos Amezquita DPM Work Phone: [facility] Start: 06-27-2024 End: 06-27-2024 Patient encounter procedure Kathie Amezquita DPM Work Phone: [facility] Comment on above: Peroneal tendinitis of right lower extremity (Primary Dx); Bilateral foot pain; Exostosis of bone of foot Start: 06-12-2024 Refill Isra S Clin e DO Work Phone: Gastroenterology Comment on above: Refill Request Start: 05-27-2024 End: 05-27-2024 ambulatory DO Shannon Gómez Work Phone: [facility] Work Phone: Start: 05-27-2024 End: 05-27-2024 Departed Referred DO Shannon Szymanskijerometomasa Work Phone: [facility]-LAB [facility] Start: 05-14-2024 End: 05-15-2024 Refill Jose-Ramya Chavira [facility] Neu[facility] Comment on above: Other migraine witho ut status migrainosus, not intractable (Primary Dx) Start: 04-30-2024 End: 04-30-2024 ambulatory DO Shannon Gómez Work Phone: [facility] Work Phone: Start: 04-30-2024 End: 04-30-2024 Patient encounter procedure DO Shannon Gómez Work Phone: [facility]-MRI [address] Work Phone: Start: 04-28-2024 End: 04-28-2024 ambulatory [facility] Start: 04-28-2024 End: 04-28-2024 ambulatory [facility] Start: 04-12-2024 ambulatory NA LI Facility:[facility] Start: 04-12-2024 End: 04-12-2024 Subsequent hospital visit by physician Milagros Franco MD, PhD Work Phone: [facility] Comment on above: Arrived Start: 04-03-2024 End: 04-03-2024 ambulatory [facility] Start: 03-12-2024 ambulatory Flower huang 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ANT.MAINTENANCE [employer]OB TIT[employer] Work Phone: URO/Gynecology Comment on above: Estradiol vaginal cr eam Start: 03-08-2024 ambulatory SELF SELF Facility:[facility] Start: 03-06-2024 ambulatory Shannon SZYMANSKILEIGHA Facili ty:[facility] Start: 03-06-2024 ambulatory RADHA Lemos y:[facility] Start: 03-06-2024 ambulatory Shannon SZYMANSKIJEROMETOMASA Mikii ty:[facility] Start: 02-27-2024 End: 02-27-2024 ambulatory FLOWER JESSICA Facility:[facility] Start: 02-27-2024 End: 02-27-2024 Patient encounter procedure Flower Jessica 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 CONSULTANT.MAINTENANCE [employer]OB TITLES Work Phone: URO/Gynecology Comment on above: Post-operative state (Primary Dx); Vaginal burning Start: 02-11-2024 End: 02-11-2024 ambulatory ELICEO GÓMEZ JR Facility:[facility] Start: 02-11-2024 End: 02-11-2024 ambulatory Lissa Vivek 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 CONSULTANT.MAINTENANCE [employer]OB TITLES Work Phone: Telemedicine Comment on above: Procedure and treatm ent not carried out for other reasons (Primary Dx) Start: 02-11-2024 End: 02-11-2024 Telemedicine consultation with patient Lissa Doyle 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 CONSULTANT.MAINTENANCE JOB TITLES Work Phone: [facility] Start: 02-09-2024 ambulatory Pam rios MD Work Phone: URO/Gynecology Comment on above: Yeast infection Start: 02-07-2024 End: 02-07-2024 ambulatory [facility] Start: 01-27-2024 Telephone encounter Radha florez MD Work Phone: Gynecology Start: 01-26-2024 End: 01-26-2024 ambulatory ELICEO GÓMEZ JR Facility:[facility] Start: 01-25-2024 End: 01-25-2024 Telemedicine consultation with patient Nurse Organizational Effectiveness Director Work Phone: [facility] Start: 01-25-2024 Encounter for other preprocedural examination PAM WANG [facility] Start: 01-25-2024 End: 01-25-2024 Admission to establishment [facility] Work Phone: [facility] Start: 01-25-2024 End: 01-25-2024 ambulatory Nurse Organizational Effectiveness Director Work Phone: Pre Anesthesia Comment on above: Pre-op examination ( Primary Dx); Obesity (BMI 30.0-34.9); Mild persistent asthma without complication; CHUCKIE (obstructive sleep apnea); Primary hypertension; Gastroparesis; Gastroesophageal reflux disease, unspecified whether esophagitis present Educational circumst ances (Primary Dx) Start: 01-25-2024 End: 01-25-2024 Preprocedural examination done [facility] Virtual Work Phone: [facility] Work Phone: Start: 01-10-2024 End: 01-10-2024 Postop follow up visit related to original px Cullen Dawkins MD Work Phone: [facility] Comment on above: CHUCKIE (obstructive sle ep apnea) (Primary Dx) Start: 12-27-2023 Telephone encounter Cullen glover MD Work Phone: [facility] Start: 12-25-2023 ambulatory Pam rios MD Work Phone: URO/Gynecology Comment on above: Having another stimu lator besides bladder Start: 12-25-2023 Telephone encounter Pam simon MD Work Phone: Gynecology Comment on above: Question Start: 12-20-2023 End: 12-20-2023 Patient encounter procedure [facility] Comment on above: Pre-op testing (Prim tomer Dx) Start: 12-20-2023 End: 12-20-2023 Patient encounter status [facility] Start: 11-27-2023 End: 11-27-2023 ambulatory Beto Snyder Other Present Other Start: 11-27-2023 Telephone encounter Beto Fernándeztonia [facility] Start: 11-23-2023 End: 11-23-2023 ambulatory DO Shannon Gómez Work Phone: [facility] Work Phone: Start: 11-23-2023 End: 11-23-2023 Patient encounter procedure DO Shannon Gómez Work Phone: [facility] Work Phone: Start: 11-21-2023 End: 11-21-2023 ambulatory ELICEO GÓMEZ JR Facility:[facility] Start: 11-16-2023 End: 11-16-2023 ambulatory Beto Pradeeptonia Other Present Other Start: 11-16-2023 Telephone encounter Beto Pradeeptonia [facility] Start: 11-08-2023 Telephone encounter Emily [facility] Start: 11-03-2023 Orders Only Pauline Christensen MD Work Phone: [facility] Start: 10-26-2023 End: 10-26-2023 ambulatory Beto Snyder Other Present Other Start: 10-26-2023 Telephone encounter Beto Snyder [facility] Start: 10-23-2023 End: 10-23-2023 ambulatory PAULINE CHRISTENSEN [facility] Start: 10-10-2023 End: 10-10-2023 ambulatory ELICEO GÓMEZ JR Facility:[facility] Start: 10-06-2023 End: 10-06-2023 ambulatory Beto Snyder Other Present Other Start: 10-06-2023 Telephone encounter Beto Snyder [facility] Start: 09-27-2023 End: 09-27-2023 ambulatory Pam Wang MD Work Phone: Urogynecology Comment on above: Worsening Start: 09-27-2023 Refill Doris Juana QUIGLEY.MAINTENANCE JOB TITLES Work Phone (unformatted): [phone] Urogynecology Comment on above: Med Change Request Start: 09-11-2023 End: 09-11-2023 ambulatory PAM WANG Facility:[facility] Start: 08-12-2023 End: 08-12-2023 Emergency department patient visit LEX SALMON [facility] Start: 08-12-2023 End: 08-12-2023 Emergency department patient visit Lex Salmon MD Work Phone: [facility] Comment on above: Upper [...] End: 07-31-2023 Patient encounter procedure Nelsy Chávez APRN.MAINTENANCE JOB TITLES Work Phone: URO/Gynecology Comment on above: Incomplete bladder e mptying (Primary Dx); Constipation, unspecified constipation type; Urinary urgency; Urinary frequency; Nocturia Start: 07-17-2023 (Procedure) Win Snyder [facility] Start: 07-17-2023 End: 07-17-2023 ambulatory Beto Snyder Other Present Other Start: 07-12-2023 End: 07-12-2023 ambulatory Beto Snyder Other Present Other Start: 07-12-2023 Telephone encounter [facility] Start: 06-13-2023 Office consultation new/estab patient 60 min Eliceo Gómez Work Phone: -[facility] [address] DO Work Phone: Start: 06-13-[address] Dipti Anaya Facility: Start: 06-07-[address] Dipti Anaya Facility:[id number] Start: 06-05-2023 End: 06-05-2023 Emergency department patient visit DO Shannon Gómez Work Phone: [facility]-Emergency Room Work Phone: Start: 05-28-2023 ambulatory Pam rios MD Work Phone: URO/Gynecology Comment on above: Problems with urinat ing Start: 04-26-2023 End: 04-26-2023 ambulatory Beto Snyder Other [facility] [employer] Other Start: 04-26-2023 Office outpatient vi sit 25 minutes Beto Snyder [facility] [place] Start: 04-11-2023 Refill Isra S Clin e DO Work Phone: Gastroenterology Comment on above: Refill Request Start: 04-04-2023 End: 04-05-[address] Isatu GÓMEZ Facility:[facility]1 Start: 03-19-2023 ambulatory Isra S Clin e DO Work Phone: Gastroenterology Comment on above: Stool sample results Start: 03-17-2023 End: 03-17-2023 ambulatory DO Shannon Gómez Work Phone: [facility] Work Phone: Start: 03-17-2023 End: 03-17-2023 Discharged Recurring DO Shannon Gómez Work Phone: [facility]-Physical Therapy [place] Work Phone: Start: 03-15-2023 Orders Only Isra [...] appointment) Start: 01-16-2023 End: 01-16-2023 Admission to [facility] Start: 01-16-2023 End: 01-16-2023 ambulatory Pac Virtual [...] with patient Winston Hannah DO Work Phone: [facility] Start: 12-28-2022 ambulatory Yoni Tuttle MD [...] with patient Winston Hannah DO Work Phone: [facility] Start: 12-21-2022 End: 12-22-2022 ambulatory SADE Keys [facility] Facility: Start: 12-15-2022 End: 12-15-2022 Manual pelvic examination Mary Obrien MD Work Phone: Colorectal Surgery Comment on above: Colonic inertia (Phoebe unique Dx); Pelvic floor dysfunction; Nausea; Gastroparesis Start: 12-15-2022 End: 12-15-2022 Telemedicine consultation with patient Mary Obrien MD Work Phone: [facility] Start: 12-14-2022 ambulatory Yoni Tuttle MD Work [...] ambulatory Winston chand DO Work Phone: [facility] Start: 12-02-2022 ambulatory Isra S Clin e DO Work Phone: [facility] Start: 12-02-2022 Telephone encounter Yoni Tuttle MD Work Phone: Neurology Comment on above: Returning Nurse Call Start: 12-01-2022 End: 12-02-2022 ambulatory NIECY DURON Facility:[facility] Start: 11-30-2022 End: 11-30-2022 ambulatory Isra Galarzae DO Work Phone: Gastroenterology Comment on above: Chronic idiopathic c onstipation (Primary Dx); Nausea Start: 11-30-2022 End: 11-30-2022 Telemedicine consultation with patient Isra Masters DO Work Phone: [facility] Start: 11-24-2022 ambulatory Isra Thorpe Clin e DO Work Phone: Gastroenterology Comment on above: SMART PILL RESULTS Approval for upcomin g pap titration test Start: 11-24-2022 Telephone encounter Yoni Tuttle MD Work Phone: Neurology Comment on above: Is PA Needed for PAP Titration Start: 11-22-2022 Telephone encounter Isra Galarzae DO Work Phone: Gastroenterology Comment on above: Patient Update Start: 11-21-2022 End: 11-21-2022 ambulatory Yoni Tuttle MD Work Phone: Pre Anesthesia Comment on above: Pre-op exam (Primary Dx); Primary hypertension; Mild persistent asthma without complication; Gastroparesis; CHUCKIE (obstructive sleep apnea) Orders Start: 11-21-2022 End: 11-21-2022 Admission to establishment [facility] 2 Work Phone: [facility] Start: 11-21-2022 End: 11-21-2022 Preprocedural examination done [facility] 2 Work Phone: Pre Anesthesia Start: 11-17-2022 ambulatory Annmarie Gillespie RN Gastroe nterology Start: 11-17-2022 Patient encounter procedure Annmarie Gillespie RN [facility] Start: 11-17-2022 End: 11-17-2022 Subsequent hospital visit by physician Capsule Work Phone: Gastroenterology Start: 11-16-2022 ambulatory Yoni Tuttle MD Work Phone: NEUROLOGY Comment on above: The delay Start: 11-15-2022 ambulatory Yoni Tuttle MD Work Phone: NEUROLOGY Comment on above: Labs Start: 11-14-2022 End: 11-15-2022 [facility] Start: 11-10-2022 Telephone encounter Annmarie Gillespie RNfield support engineer Comment on above: [employer] Start: 11-10-2022 End: 11-11-2022 ambulatory [facility] Facility:[facility] Start: 11-09-2022 Telephone encounter Yoni Tuttle [...] preprocedural laboratory examination SADE FELIX [facility] Start: 10-20-2022 End: 10-20-2022 ambulatory Isra Masters DO Work Phone: Gastroenterology Comment on above: Smart pill Cpap Start: 10-19-2022 End: 10-19-2022 ambulatory JENNIFER GARCIA Facility:[facility] Start: 10-18-2022 Refill Isra S Clin e DO Work Phone: Gastroenterology Comment on above: Refill Request Start: 10-17-2022 Telephone encounter Yoni Tuttle MD Work Phone: Neurology Comment on above: PAP Rx Faxed (DME: S HS ) Start: 10-17-2022 End: 10-18-[address] Isatu GÓMEZ Facility:[facility] Start: 10-14-2022 End: 10-14-2022 ambulatory DO Shannon Gómez Work Phone: [facility] Work Phone: Start: 10-14-2022 End: 10-14-2022 Discharged Recurring DO Shannon Gómez Work Phone: [facility]-Physical Therapy [place] Work Phone: Start: 10-13-2022 End: 10-14-2022 ambulatory SADE Keys [facility] Facility:H1 Start: 10-13-2022 End: 10-14-2022 Encounter for preprocedural laboratory examination SADE Keys [facility] Facility:[facility]1 Start: 10-11-2022 End: 10-11-2022 ambulatory Beto Cartagena Other Present Other Start: 10-11-2022 Telephone encounter Beto Cartagena [facility] Start: 10-11-2022 End: 10-11-2022 Patient encounter procedure Isra Masters DO Work Phone: Gastroenterology Comment on above: Gas bloat syndrome ( Primary Dx); Chronic idiopathic constipation; Gastroparesis Start: 10-10-2022 End: 10-10-2022 ambulatory Beto Cartagena Other Present Other Start: 10-10-2022 Office outpatient ne w 30 minutes Beto Cartagena [facility] Start: 10-06-2022 End: 10-06-2022 ambulatory Beto Snyder Other Present Other Start: 10-06-2022 Patient encounter procedure Beto Steven [facility] [place] Start: 09-28-2022 Encounter for other preprocedural examination [facility] Start: 09-28-2022 Encounter for preprocedural cardiovascular examination [facility] Start: 09-26-2022 End: 09-27-2022 ambulatory [facility] Facility:[facility]1 Start: 09-22-2022 Office outpatient vi sit 25 minutes Beto Snyder [facility] [place] Start: 09-22-2022 Telephone encounter Beto Mcnulty [facility] [place] Start: 09-22-2022 End: 09-22-2022 ambulatory DO Ortega Parish Dalia Work Phone: Present Other Start: 09-22-2022 End: 09-22-2022 Patient encounter procedure DO Shannon Parish Szymanskileigha Work Phone: [facility] Start: 09-14-2022 End: 09-14-2022 ambulatory Eliceo Szymanskileigha Other Present Other Start: 09-14-2022 Encounter by sierra Gómez [facility] Start: 09-14-2022 Office outpatient vi sit 15 minutes Beto Snyder [facility] [place] Start: 09-14-2022 Telephone encounter Beto Mcnulty [facility] Start: 08-16-2022 ambulatory Mary Obrien MD Work Phone: Colorectal Surgery Comment on above: CT results Ct scan result quest ion Start: 08-16-2022 E-mail encounter fro m caregiver Mary Obrien MD Work Phone: [facility] Start: 08-12-2022 End: 08-12-2022 Subsequent hospital visit by physician Ct Prep [facility] Start: 07-27-2022 End: 07-28-2022 ambulatory [facility] Facility:[facility]1 Start: 07-26-2022 Telephone encounter Isra Galarzae DO Work Phone: Gastroenterology Comment on above: Medication Problem; Medication 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 (PA for Dexlansoprazole) Start: 07-26-2022 End: 07-26-2022 Patient encounter procedure Mary Obrien MD Work Phone: Colorectal Surgery Comment on above: Follow-up examinatio n after colorectal surgery (Primary Dx); Periumbilical abdominal pain; Outlet dysfunction constipation; Colonic inertia Start: 06-08-2022 (Procedure) Short Beto Pradeeptonia [facility] Start: 06-08-2022 End: 06-08-2022 ambulatory Beto Snyder Other Present Other Start: 05-30-2022 Refill Mary Obrien MD Work Phone: Colorectal Surgery Comment on above: Refill Request Start: 05-26-2022 End: 05-26-2022 ambulatory Beto Snyder Other Present Other Start: 05-26-2022 Office outpatient vi sit 25 minutes Beto Steven [facility] Start: 05-12-2022 Office consultation new/estab patient 60 min Eliceo Gómez Work Phone: [facility] [place] [address] DO Work Phone: Start: 05-10-2022 End: 05-10-2022 ambulatory Allison Arita Other Present Other Start: 05-10-2022 Office outpatient vi sit 15 minutes Allison Arita [facility] Start: 05-03-2022 Telephone encounter Mary brewer MD Work Phone: Colorectal Surgery Comment on above: [employer] - [employer]r Start: 04-26-2022 Telephone encounter Mary brewer MD Work Phone: Colorectal Surgery Comment on above: Patient Question Start: 04-22-2022 End: 04-22-2022 Patient encounter procedure Jessi Sheets DANN.MAINTENANCE JOB TITLES Work Phone: Colorectal Surgery Comment on above: Follow-up examinatio n after colorectal surgery (Primary Dx); Pelvic floor dysfunction Start: 04-17-2022 End: 04-17-2022 ambulatory CHASITY FREIRE . Facility: Start: 04-07-2022 Telephone encounter Rachael Keys [facility] Department Comment on above: PostOp Follow-up Start: 03-22-2022 Telephone encounter Mary brewer MD Work Phone: Colorectal Surgery Comment on above: Patient Question Start: 03-15-2022 End: 03-15-2022 ambulatory Beto Snyder Other Present Other Start: 03-15-2022 Office outpatient vi sit 15 minutes Beto Snyder [facility] [place] Start: 03-15-2022 Telephone encounter Mary brewer MD Work Phone: Colorectal Surgery Comment on above: [employer] Medication Preauthor ization (PA for Dexilant renewal) Outside Labs Results Start: 03-15-2022 End: 03-15-2022 Patient encounter procedure Isra Masters DO Work Phone: Gastroenterology Comment on above: Gastroesophageal ref lux disease, unspecified whether esophagitis present; Chronic idiopathic constipation Start: 03-14-2022 End: 03-14-2022 [facility] 4 Work Phone: Pre Anesthesia Comment on above: Preop examination (P rimary Dx); Attention to ileostomy (HCC); Primary hypertension; Gastroparesis; Gastroesophageal reflux disease, unspecified whether esophagitis present; Mild persistent asthma without complication; Bipolar 1 disorder (HCC); Obesity (BMI 30.0-34.9) Start: 03-14-2022 End: 03-14-2022 Preprocedural examination done [facility] 4 Work Phone: Pre Anesthesia Start: 02-28-2022 Telephone encounter Isra Masters DO Work Phone: Gastroenterology Comment on above: Appointment (for scr ipt refill) Start: 02-18-2022 End: 02-18-2022 Patient encounter procedure Nelsy Chávez DANN.MAINTENANCE JOB TITLES Work Phone: URO/Gynecology Comment on above: Postoperative state (Primary Dx) Start: 02-11-2022 End: 02-11-2022 ambulatory Flaca Bartholomew PT Work Phone: [facility] Start: 02-11-2022 End: 02-11-2022 Follow-up encounter Flaca Bartholomew PT Work Phone: [place] [facility] Physical Therapy Comment on above: Pelvic floor dysfunc tion (Primary Dx); Lack of coordination; Follow-up examination after colorectal surgery Start: 02-09-2022 (Procedure) Win Snyder [facility] Start: 02-09-2022 End: 02-09-2022 ambulatory Beto Snyder Other Present Other Start: 02-08-2022 End: 02-08-2022 Patient encounter procedure Mary Obrien MD Work Phone: Colorectal Surgery Comment on above: Follow-up examinatio n after colorectal surgery (Primary Dx) Post-operative state (Primary Dx); Yeast infection of the skin Start: 02-01-2022 Refill Isra S Clin e DO Work Phone: Gastroenterology Comment on above: Refill Request (dexl ansoprazole) Start: 01-31-2022 End: 01-31-2022 ambulatory Newton Woodward PT Work Phone: [facility] Start: 01-31-2022 End: 01-31-2022 Follow-up encounter Newton Woodward PT Work Phone: [facility] Physical Therapy Comment on above: Pelvic floor dysfunc tion (Primary Dx); Lack of coordination; Follow-up examination after colorectal surgery Start: 11-25-2021 End: 11-25-2021 ambulatory Beto Snyder Other Present Other Start: 11-25-2021 Office outpatient vi sit 25 minutes Beto Snyder [facility] Start: 11-17-2021 End: 11-18-2021 ambulatory PARISH GÓMEZ [facility] Start: 10-20-2021 End: 10-20-2021 ambulatory Beto Pradeeptonia Other Present Other Start: 10-20-2021 Office outpatient vi sit 25 minutes Beto Snyder [facility] [place] Start: 10-13-2021 (Procedure) Short Beto Snyder [facility] Start: 10-13-2021 End: 10-13-2021 ambulatory Beto Snyder Other [place] [employer] Other Start: 09-06-2021 Office outpatient vi sit 25 minutes Beto Snyder [facility] [place] Start: 08-19-2021 Office outpatient vi sit 15 minutes Erica Kingston [facility] Start: 08-13-2021 Office outpatient vi sit 15 minutes Tita Daugherty [facility] Start: 08-12-2021 Office outpatient vi sit 25 minutes Beto Snyder [facility] [place] Start: 07-28-2021 Office outpatient vi sit 25 minutes Beto Snyder [facility] [place] Start: 12-25-2020 End: 12-25-2020 Subsequent hospital visit by physician Brianna Connors 1 Work Phone: Radiology Comment on above: Post-operative state [Z98.890] Start: 09-29-2020 End: 09-29-2020 Subsequent hospital visit by physician Brianna Connors 1 Work Phone: Radiology Comment on above: Pain [R52] Procedures Date Procedure Procedure Detail Performing Clinician Start: 07-15-2025 Adult depression scr eening assessment Ingrid Baht MD Work Phone: Start: 07-09-2025 SKIN / NAIL BIOPSY Denita BROOKS Work Phone: Start: 07-01-2025 MR lumbar spine wo con GReno Gómez DO Work Phone: Start: 06-25-2025 Radiologic [...] Work Phone: Comment on above: Performed at: [place] [id number] Director: Erick Neville PhD, Phone: [phone] Start: 01-03-2025 XR FOOT RT MIN 3V [...] Phone: Start: 07-26-2024 Follow-up visit Follow-up PAULINE HEBERT EIKH Start: 04-30-2024 MRI of right ankle DO Isatu Gómez Work Phone: Start: 04-12-2024 DIAGNOSTIC UPPER ENDOSCOPY Na Li MD, PhD Work Phone: Start: 02-27-2024 BACTERIAL VAGINOSIS NAAT Flowershakir Lopez 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 CONSULTANT.MAINTENANCE JOB TITLES Work Phone: Start: 02-27-2024 Iadna trichomonas vaginalis amplified probe tech Flowershakir Lopez 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 CONSULTANT.MAINTENANCE JOB TITLES Work Phone: Start: 02-27-2024 Urnls dip stick/tabl et rgnt auto w/o microscopy Flower Lopez 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 CONSULTANT.MAINTENANCE JOB TITLES Work Phone: Start: 12-20-2023 Basic metabolic pane [...] Assay of troponin quantitative Lev Ritter APRN [facility] Work Phone: Start: 08-12-2023 Ct abdomen & pelvis w/contrast material Lev Ritter APRN [facility] Work Phone: Start: 08-12-2023 Urnls dip stick/tabl et reagent auto microscopy Lex Salmon MD Work Phone: Start: 08-12-2023 Basic metabolic pane l calcium total Lex Salmon MD Work Phone: Start: 08-12-2023 DARK GREEN TOP Lex buitrago MD Work Phone: Start: 08-12-2023 GOLD TOP Lex urbina MD Work Phone: Start: 08-12-2023 Hepatic function panel Lev Ritter APRN [employer] Work Phone: Start: 08-12-2023 LIGHT BLUE TOP [...] et rgnt auto w/o microscopy Nelsy Chávez APRN.MAINTENANCE JOB TITLES Work Phone: Start: 06-05-2023 Plain chest X-ray [...] - S jay or Plasma Nelsy Chávez APRN.MAINTENANCE JOB TITLES Work Phone: Start: 02-08-2022 Urnls dip stick/tabl et rgnt auto w/o microscopy Magali Stephen 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 Work Phone: Start: 12-16-2021 Antibody screen Comment on above: Performed By: #### T SCR30 ####[address] [phone] Start: 10-15-2021 Antibody screen Comment on above: Performed By: #### T SCR30 ####[address] [phone] Start: 06-28-2021 Mammography Mary brewer MD Work Phone: Start: 02-18-2021 End: 06-23-2025 H/O: surgery S/P nasal septoplasty Kathie MERCADO M Work Phone: Start: 02-18-2021 History of tonsillectomy S/P tonsill ectomy Kathie MERCADOM Work Phone: Start: 12-25-2020 Radex shoulder compl ete minimum 2 views Chan Quinones PA-C Work Phone: Start: 09-29-2020 Radex shoulder compl ete minimum 2 views Ryan Lynne MD Work Phone: Colonoscopy Eliceo Asiya Dalia Work Phone: Hysterectomy Eliceo Gómez Work [...] DTAP/TDAP/TD VACCINE (2 - Td or Tdap) [facility] Start: 06-22-2030 DTaP,Tdap and Td Vaccines (2 - Td or Tdap) DTaP,Tdap and Td Vaccines (2 - Td or Tdap) [facility] Start: 06-22-2030 Tetanus vaccination TETANUS [facility] Start: 06-22-2030 Urine microalbumin profile DTaP,Tdap,Td Vaccine (2 - T d or Tdap) [facility] Start: 11-01-2028 Lipid panel Lipid Screening [facility] Start: 12-05-2027 COLORECTAL CANCER SCREENING COLORECTAL CANCER SCREENING [facility] Start: 12-05-2027 Screening for malignant neoplasm of colon [facility] Start: 12-05-2027 SIGMOIDOSCOPY SIGMOIDOSCOPY [facility] Start: 03-02-2027 Lipid 1996 panel - Serum or Plasma Lipid Screening [facility] Start: 03-02-2027 LIPID SCREEN LIPID SCREEN [facility] Start: 12-20-2026 Diabetes Screening Diabetes Screening [facility] Start: 08-12-2026 Diabetes Screening Diabetes Screening [facility] Start: 07-15-2026 Adult BMI Screening Adult BMI Screening [facility] Start: 07-15-2026 Depression Screening Depression Screening [facility] Start: 07-15-2026 Tobacco Screening Tobacco Screening [facility] Start: 06-27-2026 Adult BMI Screening Adult BMI Screening [facility] Start: 06-27-2026 Tobacco Screening Tobacco Screening [facility] Start: 06-06-2026 Adult BMI Screening Adult BMI Screening [facility] Start: 06-06-2026 Tobacco Screening Tobacco Screening [facility] Start: 01-20-2026 Medicare Annual Wellness (AWV) Medicare Annual Wellness (AWV) [facility] Start: 11-20-2025 End: 11-20-2025 Patient encounter procedure [facility] Start: 10-14-2025 End: 10-14-2025 Patient encounter procedure 10/14/2025 8:00 AM EST Office Visit [facility], A Department of [address] [place] [address] Ingrid Bhat MD [address] [place] [address], [address] [place] [address] [facility], A Department of [facility] Start: 10-08-2025 End: 10-08-2025 Patient encounter procedure 10/08/2025 9:15 AM EST Appointment [facility] Neuro[facility]iology [address] [place] [address] [address] [place] [address] [facility] Start: 08-19-2025 End: 08-19-2025 Patient encounter procedure 08/19/2025 3:30 PM EDT Office Visit [facility], A Department of [address] [place] [phone] Pauline Christensen MD [address] [place] [address], [address] [place] [address] [facility], A Department of [facility] Start: 08-18-2025 End: 08-18-2025 Patient encounter procedure [facility] Imaging Start: 08-13-2025 End: 08-13-2025 Patient encounter procedure 08/13/2025 8:30 AM EDT Office Visit [facility] [address] [place] [address] Chantale Sweet PA [address] [place] [address] [facility] Start: 07-29-2025 End: 07-29-2026 XR Abdomen AP X-ray abdomen ap 1 view Imaging Routine Gastroparesis Diarrhea, unspecified type Flatulence Expected: 07/29/2025, Expires: 07/29[facility]: Comment on above: Expected: 07/29/2025, Expires: Start: 07-16-2025 End: 07-16-2025 ambulatory 07/16/2025 6:40 AM EDT Lab [facility] [address] [place] [address] [facility] Start: 07-15-2025 End: 07-15-2026 MR Brain WO contrast MR brain without contrast Imaging Routine Hyperreflexia Expected: 07/15/2025, Expires: 07/15/2026 [facility] Comment on above: Expected: 07/15/2025, Expires: Start: 07-15-2025 End: 07-15-2026 MR Cervical spine WO contrast MR cervical spine withou t contrast Imaging Routine Hyperreflexia Expected: 07/15/2025, Expires: 07/15/2026 [facility] Comment on above: Expected: 07/15/2025, Expires: Start: 07-15-2025 End: 07-15-2025 Patient encounter procedure 07/15/2025 9:00 AM EDT Office Visit [facility], Department of [address] [place] [phone] Ingrid Bhat MD [address] [place] [address] [address] [place] [address] [facility], A Department of [facility] Start: 07-11-2025 End: 07-11-2025 Professional / ancillary services management 07/11/2025 2:00 PM EDT Ancillary Procedure [facility] [address] [facility] [address] [place] [address] [facility] Start: 07-09-2025 End: 07-09-2025 Patient encounter procedure [facility] Comment on above: Arrived Start: 07-07-2025 COVID-19 Vaccine ( season) COVID-19 Vaccine ( season) [facility] Start: 07-07-2025 Influenza vaccination Influenza Vaccine [facility] Start: 06-27-2025 End: 06-27-2025 Admission to same day surgery center 06/27/2025 3:30 PM EDT - 06/27/2025 4:00 PM EDT Surgery [facility] [address] [facility] [place] [phone] Alberto Solis MD [address] [facility] [facility] [address] [place] [address] ESOPHAGOGASTRODUODENOSCOPY DILATATION [facility] Comment on above: ESOPHAGOGASTRODUODENOSCOPY DILATATION Start: 06-27-2025 End: 06-27-2025 ESOPHAGOGASTRODUODENOSCOPY DILATATION ESOPHAGOGASTRODUODENOSCOPY DILATATION esophageal dysphagia 06/27/2025 3:30 PM EDT [facility] Start: 06-27-2025 Subsequent hospital visit by physician 06/27/2025 3:30 PM EDT Hospital Encounter [facility] [address] [facility] [place] [phone] Alberto Solis MD [address] [facility] [facility] [address] [place] [address] [facility] Start: 06-24-2025 End: 08-24-2026 DBT Breast - bilateral screening Bilateral screening mammogram with tomosynthesis Imaging Routine Breast cancer screening by mammogram Expected: 06/24/2025, Expires: 08/24/2026 [facility] Comment on above: Expected: 06/24/2025, Expires: Start: 06-24-2025 End: 06-24-2025 Patient encounter procedure 06/24/2025 9:00 AM EDT Office Visit [facility] [address] [place] [address] Dipti Acevedo, DO [address] [place] [address] [facility] Start: 06-17-2025 End: 06-17-2025 Patient encounter procedure 06/17/2025 8:15 AM EDT Office Visit [facility], A Department of [address] [place] [phone] [place] [address] [place] [address] [address] [place] [address] [facility], A Department of [facility] Start: 06-06-2025 End: 06-06-2025 Patient encounter procedure 06/06/2025 9:00 AM EDT Office Visit [facility], A Department of [address] [place] [phone] Vicki Roche, [address] [facility] [place] [address] Alberto Solis MD [address] [facility] [address] [place] [address] [facility], A Department of [facility] Start: 04-30-2025 End: 04-30-2025 Patient encounter procedure 04/30/2025 4:00 PM EDT Procedure Visit [facility] COLL[facility] [address] [address] Salma Galeas DO [address] [place] [address] [facility] Start: 04-05-2025 DIABETES SCREEN DIABETES SCREEN [facility] Start: 04-05-2025 Diabetes Screening Diabetes Screening [facility] Start: 03-14-2025 DIABETES SCREEN DIABETES SCREEN [facility] Start: 03-14-2025 Medicare Annual Wellness (AWV) Medicare Annual Wellness (AWV) [facility] Start: 02-17-2025 Aldolase measurement [facility] Start: 01-20-2025 End: 01-20-2025 Patient encounter procedure 01/20/2025 1:00 PM EDT Office Visit [facility] [address] [place] [address] Eliceo Gómez, [address] [place] [address] Bipolar disorder, current episode depressed, moderate (CMS/HCC) [facility] Comment on above: Bipolar disorder, current episode depres sed, moderate (CMS/HCC) Start: 01-09-2025 Adult BMI Screening Adult BMI Screening [facility] Start: 01-09-2025 Tobacco Screening Tobacco Screening [facility] Start: 12-26-2024 DIABETES SCREEN DIABETES SCREEN [facility] Start: 12-20-2024 Adult BMI Screening Adult BMI Screening [facility] Start: 12-20-2024 Tobacco Screening Tobacco Screening [facility] Start: 12-16-2024 Aldolase measurement [facility] Start: 12-16-2024 Hemolytic complement CH50 level [facility] Start: 12-16-2024 [facility] Start: 11-20-2024 Patient referral [facility] Work Phone: Start: 11-19-2024 End: 11-19-2024 Patient encounter procedure [facility] Comment on above: Arrived Start: 11-12-2024 End: 11-12-2024 Patient encounter procedure 11/12/2024 8:30 AM EST Office Visit [facility] [address] [place] [phone] Dipti Acevedo, DO [address] [place] [address] [facility] Start: 11-11-2024 End: 11-11-2024 Patient encounter procedure 11/11/2024 9:20 AM EST Office Visit [facility] [address] [place] [address] Nelsy Snyder, 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 [address] [place] [address] [facility] Start: 11-04-2024 End: 11-04-2024 Telemedicine consultation with patient 11/04/2024 2:00 PM EST Telemedicine [facility] [address] [place] [phone] Merissa Delarosa, RD [address] [place] [address] [address] [place] [phone] [facility] [place] Start: 11-01-2024 End: 11-01-2024 Professional / ancillary services management 11/01/2024 11:00 AM EST Ancillary Procedure [facility] [place] [address] [place] [address] [facility] [place] Start: 11-01-2024 End: 11-01-2024 Patient encounter procedure [facility] Comment on above: Aftercare following surgery Start: 10-31-2024 Screening for malignant neoplasm of breast [facility] Start: 10-28-2024 End: 10-28-2024 Telemedicine consultation with patient 10/28/2024 9:00 AM EST Telemedicine [facility] [address] [place] [address] Lissa Lou, RD [address] [place] [address] [facility] [place] Start: 10-24-2024 [facility] Start: 10-24-2024 [facility] Start: 10-23-2024 Adult BMI Screening Adult BMI Screening [facility] Start: 10-23-2024 Depression Screening Depression Screening [facility] Start: 10-23-2024 End: 10-23-2025 FECAL FAT,QUANTITATIVE FECAL FAT,QUANTITATIVE Fluids Routine Chronic diarrhea Expected: 10/23/2024, Expires: 10/23/2025 [facility] Comment on above: Expected: 10/23/2024, Expires: 5 Start: 10-23-2024 End: 10-23-2025 NM Stomach Views for gastric emptying W [id number] SC PO NUC GASTRIC EMPTYING Imaging Routine Bloating Gastroparesis Expected: 10/23/2024, Expires: 10/23/2025 [facility] Comment on above: Expected: 10/23/2024, Expires: 5 Start: 10-23-2024 End: 10-23-2025 PANCREATIC ELASTASE, STOOL PANCREATIC ELASTASE, STOOL Fluids Routine Chronic diarrhea Expected: 10/23/2024, Expires: 10/23/2025 [facility] Comment on above: Expected: 10/23/2024, Expires: Start: 10-23-2024 Tobacco Screening Tobacco Screening [facility] Start: 10-10-2024 BP Controlled (<130/80) BP Controlled (<130/80) [facility] Start: 07-12-2024 End: 07-12-2024 Professional / ancillary services management 07/12/2024 1:30 PM EDT Ancillary Procedure [facility] [address] [place] [address] [facility] Start: 07-11-2024 End: 07-11-2025 US Soft Tissue Palpable Mass US Soft Tissue Palpable M ass Imaging Routine Soft tissue mass Expected: 07/11/2024, Expires: 07/11/2025 [facility] Work Phone: Comment on above: Expected: 07/11/2024, Expires: Start: 07-07-2024 COVID-19 VACCINE ( season) COVID-19 VACCINE ( season) [facility] Start: 07-07-2024 Covid-19 Vaccine ( season) Covid-19 Vaccine ( season) [facility] Start: 07-07-2024 Influenza vaccination [facility] Start: 06-27-2024 End: 06-27-2024 Patient encounter procedure 06/27/2024 9:45 AM EDT Office Visit [facility] [address] [place] [address] Kathie Amezquita DPM [address] [place] [address] Arrived [facility] Comment on above: Arrived Start: 05-31-2024 Administration of varicella zoster vaccine Zoster (Shingles) Vaccine (2 of 2) [facility] Start: 05-31-2024 Zoster vaccine hzv live for subcutaneous use ZOSTER (SHINGLES) VACCINE (2 of 2) [facility] Start: 04-18-2024 End: 04-18-2024 Patient encounter procedure 04/18/2024 1:30 PM EDT Office Visit [facility] [address] [place] [phone] Pauline Christensen MD [address] [place] [address], [address], [address], [address] [place] [phone] [facility] Start: 01-10-2024 End: 01-10-2024 Patient encounter procedure 01/10/2024 12:45 PM EST Office Visit [facility] [address] [place] [address], [address] [place] [phone] Cullen Dawkins MD [address] [place] [address] [address] [place] [address] [facility] Start: 01-02-2024 End: 01-02-2024 Admission to same day surgery center 01/02/2024 11:00 AM EST - 01/02/2024 3:30 PM EST Surgery [facility] [address] [place] [address] Cullen Dawkins MD [address] [place] [address] [address] [place] [address] INSERTION STIMULATOR NERVE HYPOGLOSSAL [04432 (CPT )] [facility] Comment on above: INSERTION STIMULATOR NERVE HYPOGLOSSAL [ 86337 (CPT )] Start: 01-02-2024 End: 01-02-2024 INSERTION STIMULATOR NERVE HYPOGLOSSAL INSERTION STIMULATOR NERVE HYPOGLOSSAL CHUCKIE (obstructive sleep apnea) 01/02/2024 11:00 AM [facility] Start: 01-02-2024 Subsequent hospital visit by physician 01/02/2024 11:00 AM EST Hospital Encounter [facility] [address] [place] [address] Cullen Dawkins MD [address] [place] [address] [address] [place] [address] [facility] Start: 11-06-2023 Behavioral Health Screening Behavioral Health Screening [facility] Start: 11-06-2023 Depression Assessment Depression Assessment [facility] Start: 09-27-2023 End: 12-27-2023 Bacteria identified in Urine by Culture URINE CULTURE Microbiology Routine Burning with urination Expected: 09/27/2023, Expires: 12/27/2023 [facility] Work Phone: Comment on above: Expected: 09/27/2023, Expires: Start: 09-14-2023 Screening for malignant neoplasm of breast MAMMOGRAM [facility] Start: 08-01-2023 FUV, Provider: Dipti Anaya, Status: Pen, Time: 11:00 AM FUV, Provider: Dipti Anaya, Status: Pen, Time: 11:00 AM -[facility] [address] DO Work Phone: Start: 07-07-2023 Covid-19 Vaccine ( season) Covid-19 Vaccine ( season) [facility] Start: 07-07-2023 Influenza vaccination [facility] Start: 07-07-2023 Influenza vaccination given INFLUENZA VACCINE (#1) [facility] Start: 06-05-2023 [facility] Start: 04-22-2023 BP CONTROLLED (<130/80) BP CONTROLLED (<130/80) [facility] Start: 03-14-2023 BP CONTROLLED (<130/80) BP CONTROLLED (<130/80) [facility] Start: 02-18-2023 BP CONTROLLED (<130/80) BP CONTROLLED (<130/80) [facility] Start: 02-08-2023 BP CONTROLLED (<130/80) BP CONTROLLED (<130/80) [facility] Start: 01-18-2023 BP CONTROLLED (<130/80) BP CONTROLLED (<130/80) [facility] Start: 11-06-2022 DEPRESSION ASSESSMENT DEPRESSION ASSESSMENT [facility] Start: 09-22-2022 [facility] Start: 08-02-2022 End: 08-25-2023 Ct abdomen & pelvis w/contrast material CT ABD/PEL W IVCON Radiology Routine Periumbilical abdominal pain Expected: 08/02/2022, Expires: 08/25/2023 [facility] Work Phone: Comment on above: Expected: 08/02/2022, Expires: 3 Start: 07-07-2022 Influenza vaccination [facility] Start: 06-28-2022 Mammography [facility] Start: 2022 Administration of varicella zoster vaccine Zoster (Shingles) Vaccine (1 of 2) [facility] Start: 2022 COVID-19 VACCINE (4 - Booster for Pfizer series) COVID-19 VACCINE (4 - Booster for Pfizer series) [facility] Start: 2022 SHINGRIX VACCINE (1 of 2) SHINGRIX VACCINE (1 of 2) [facility] Start: 2022 Zoster vaccine hzv live for subcutaneous use ZOSTER (SHINGLES) VACCINE (1 of 2) [facility] Start: 04-01-2022 End: 06-01-2022 CBC W Auto Differential panel - Blood CBC + DIFF Lab Routine Follow-up examination after colorectal surgery Expected: 04/01/2022, Expires: 06/01/2022 [facility] Work Phone: Comment on above: Expected: 04/01/2022, Expires: 2 Start: 04-01-2022 End: 06-01-2022 Comprehensive metabolic 2000 panel - Serum or Plasma COMP METABOLIC PANEL Lab Routine Follow-up examination after colorectal surgery Expected: 04/01/2022, Expires: 06/01/2022 [facility] Work Phone: Comment on above: Expected: 04/01/2022, Expires: 2 Start: 04-01-2022 End: 06-01-2022 TYPE AND SCREEN,30 DAY TYPE AND SCREEN,30 DAY Blood Bank Routine Follow-up examination after colorectal surgery Expected: 04/01/2022, Expires: 06/01/2022 [facility] Work Phone: Comment on above: Expected: 04/01/2022, Expires: 2 Start: 01-19-2022 COVID-19 VACCINE (4 - Booster for Pfizer series) COVID-19 VACCINE (4 - Booster for Pfizer series) [facility] Start: 01-19-2022 COVID-19 VACCINE (4 - Pfizer series) COVID-19 VACCINE (4 - Pfizer series) [facility] Start: 11-06-2021 DEPRESSION ASSESSMENT DEPRESSION ASSESSMENT [facility] Start: 07-07-2021 Influenza vaccination INFLUENZA (#1) [facility] Start: 03-24-2021 Screening for malignant neoplasm of colon COLORECTAL CANCER SCREENING DISCUSSION [facility] Start: 04-05-2020 Screening for malignant neoplasm of breast MAMMOGRAM SCREENING DISCUSSION [facility] Start: 2017 COLOGUARD (FIT-DNA) COLOGUARD (FIT-DNA) [facility] Start: 2017 Colonoscopy COLONOSCOPY [facility] Start: 2017 COLORECTAL CANCER SCREENING COLORECTAL CANCER SCREENING [facility] Start: [address] COLONOGRAPHY [facility] Start: 2017 FECAL OCCULT BLOOD FECAL OCCULT BLOOD [facility] Start: 2017 LIPID SCREEN LIPID SCREEN [facility] Start: 2017 Screening for malignant neoplasm of colon [facility] Start: 2017 SIGMOIDOSCOPY SIGMOIDOSCOPY [facility] Start: 2012 Lipid panel LIPID SCREENING [facility] Start: 2012 Mammography MAMMOGRAM [facility] Start: 10-11-2008 Hepatitis B vaccination HEP B VACCINE (3 of 3 - 19+ 3-dose series) [facility] Start: 10-11-2008 Hepatitis B Vaccine (3 of 3 - 19+ 3-dose series) Hepatitis B Vaccine (3 of 3 - 19+ 3-dose series) [facility] Start: 2002 HPV TESTING HPV TESTING [facility] Start: 2002 Screening for malignant neoplasm of cervix HPV Testing [facility] Start: 1993 PAP TESTING PAP TESTING [facility] Start: 1993 Screening for malignant neoplasm of cervix [facility] Start: 1991 Urine microalbumin profile [facility] Start: 1990 Adult BMI Follow Up Plan Adult BMI Follow Up Plan [facility] Start: 1990 ANNUAL PCP TEAM CHRONIC DISEASE VISIT ANNUAL PCP TEAM CHRONIC DISEASE VISIT [facility] Start: 1990 ANNUAL WELLNESS VISIT ANNUAL WELLNESS VISIT [facility] Start: 1990 Anxiety Screening Anxiety Screening [facility] Start: 1990 BP CONTROLLED (<130/80) BP CONTROLLED (<130/80) [facility] Start: 1990 Depression Screening Depression Screening [facility] Start: 1990 HEPATITIS C SCREENING HEPATITIS C SCREENING [facility] Start: 1990 Hepatitis C screening Hepatitis C Screening [facility] Start: 1990 HIV SCREENING HIV SCREENING [facility] Start: 1990 HIV screening HIV Screening [facility] Start: 1987 HIV screening HIV SCREENING DISCUSSION [facility] Start: 1984 Adult depression screening assessment DEPRESSION SCREENING [facility] Start: 1984 Depression screening using PHQ-9 (Patient Health Questionnaire 9) score DEPRESSION SCREENING [facility] Start: 1978 PNEUMOCOCCAL (1 - PCV) PNEUMOCOCCAL (1 - PCV) [facility] Start: 1978 Pneumococcal vaccination Pneumococcal Vaccine (1 - PCV) [facility] Start: 1972 HEPATITIS B (1 of 3 - 3-dose series) HEPATITIS B (1 of 3 - 3-dose series) [facility] Start: 1972 Hepatitis B Vaccine (1 of 3 - 3-dose series) Hepatitis B Vaccine (1 of 3 - 3-dose series) [facility] Start: 1972 Hepatitis C screening HEPATITIS C VIRUS SCREENING [facility] Start: 1972 HPV/COTEST HPV/COTEST [facility] Start: 1972 Screening for malignant neoplasm of cervix [facility] 12 lead ECG EKG 12 lead ECG REYNA 08/12/2023 12:28 AM EDT [facility] Work Phone: 24 hour urine measurement [facility] Albumin [Mass/volume ] in Serum or Plasma [facility] Albumin/Globulin ratio [facility] Chromatin Ab [Units/ volume] in Serum or Plasma [facility] Complement C3 [Mass/ volume] in Serum or Plasma [facility] Complement C4 [Mass/ volume] in Serum or Plasma [facility] CT Abdomen and Pelvi s W contrast IV CT Abdomen / Pelvis With IV Contrast ONLY Imaging STAT 08/12[facility]2023 5:[facility] End: 07-15-2026 Cyanocobalamin vitamin b-12 Vitamin B12 Lab Routine Neuropathy B12 deficiency 1 Occurrences starting 07/15/2025 until 07/15/2026 [facility] Work Phone: Comment on above: 1 Occurrences starting 07/15/2025 until 07/15/2026 Dermatopathology exam Dermatopat hology exam Pathology and Cytology Timed Neoplasm of unspecified behavior of bone, soft tissue, and skin Release Upon Ordering for 1 Occurrences starting 07/09/2025 [employer] Work Phone: Comment on above: Release Upon Ordering for 1 Occurrences starting 07/09/2025 End: 01-12-2024 EGD - THERAPEUTIC, EUS, OR TUBE INTERVENTIONS EGD - THERAPEUTIC, EUS, OR TUBE INTERVENTIONS Endoscopy Routine Gastroparesis 1 Occurrences starting 01/11/2023 until 01/12/2024 [facility] Work Phone: Comment on above: 1 Occurrences starting 01/11/2023 until 01/12/2024 End: 06-06-2026 EGD w/ Dilation EGD w/ Dilation GI Routine Esophageal dysphagia 1 Occurrences starting 06/06/2025 until 06/06/2026 [employer] Work Phone: Comment on above: 1 Occurrences starting 06/06/2025 until 06/06/2026 Electromyography [facility] Electrophoresis: [id number] [facility] Electrophoresis: [id number]-[id number] [facility] Electrophoresis: beta-globulin [facility] Electrophoresis: jenifer ma globulin [facility] End: 07-15-2026 EMG NCV EMG NCV Neurology Routine Neuropathy 1 Occurrences starting 07/15/2025 until 07/15/2026 [employer] Comment on above: 1 Occurrences starting 07/15/2025 until 07/15/2026 FAT, FECAL QUAL FAT, FECAL QUAL Lab Routine Diarrhea due to malabsorption Ordered: 03/15/2023 [facility] Work Phone: Comment on above: Ordered: 03/15/2023 End: 07-15-2026 Free light chains Free light chains Lab Routine Neuropathy 1 Occurrences starting 07/15/2025 until 07/15/2026 [employer] Comment on above: 1 Occurrences starting 07/15/2025 until 07/15/2026 End: 10-11-2023 Gi transit & pres ravinder wireless capsule w/interp CAPSULE ENDOSCOPY SMART Endoscopy Routine Gastroparesis 1 Occurrences starting 10/11/2022 until 10/11/2023 [facility] Work Phone: Comment on above: 1 Occurrences starting 10/11/2022 until 10/11/2023 Globulin [Mass/volum e] in Serum [facility] Homogenous nuclear A b pattern [Titer] in [facility] Hydrogen breath test HYDROGEN (H 2) BREATH TEST GI/Bronch Routine Chronic abdominal pain Bloating Ordered: 08/09/2024 [facility] Comment on above: Ordered: 08/09/2024 IgA [Mass/volume] in Serum or Plasma [facility] IgG [Mass/volume] in Serum or Plasma [facility] IgM [Mass/volume] in Serum or Plasma [facility] IGP,rfxAptima HPV all,16/18,45 IGP,rfxAptima HPV all,16/18,45 Pathology and Cytology Routine Encounter for Papanicolaou smear of vagina Ordered: 06/24/2025 [facility] Work Phone: Comment on above: Ordered: 06/24/2025 Immunofixation for Urine Fir [facility] Lupus anticoagulant [Interpretation] in Platelet poor plasma [facility] Measurement of monoc lonal protein concentration [facility] End: 07-15-2026 Methylmalonic Acid, QN, P Methylmalonic Acid, QN, P Lab Routine Neuropathy B12 deficiency 1 Occurrences starting 07/15/2025 until 07/15/2026 [employer] Comment on above: 1 Occurrences starting 07/15/2025 until 07/15/2026 MR Cervical spine WO contrast [facility] Myoglobin [Mass/volu me] in Serum or Plasma [facility] Nuclear Ab [Titer] in Serum [facility] End: 12-17-2023 PAP TITRATION PSG (CPAP, BIPAP, ASV) PAP TITRATION PSG (CPAP, BIPAP, ASV) Procedures Routine CHUCKIE (obstructive sleep apnea) 1 Occurrences starting 11/17/2022 until 12/17/2023 [facility] Work Phone: Comment on above: 1 Occurrences starting 11/17/2022 until 12/17/2023 Patient Education [facility] Work Phone: Patient referral [facility] Work Phone: Protein [Mass/volume ] in Serum or Plasma [facility] Protein [Mass/volume ] in Urine [facility] Reagin Ab [Presence] in Serum by RPR [facility] SARS-CoV-2 (COVID-19 ) RNA [Presence] in Respiratory specimen by JOSÉ MIGUEL with probe detection SELF CHECK COVID Microbiology Routine Follow-up examination after colorectal surgery Ordered: 02/09/2022 [facility] Work Phone: Comment on above: Ordered: 02/09/2022 Serum immunofixation [facility] End: 07-15-2026 Serum Immunofixation Serum Immunofixation Lab Routine Neuropathy 1 Occurrences starting 07/15/2025 until 07/15/2026 [facility] Comment on above: 1 Occurrences starting 07/15/2025 until 07/15/2026 End: 11-30-2023 SIGMOIDOSCOPY SIGMOIDOSCOPY Endoscopy Routine Chronic idiopathic constipation 1 Occurrences starting 11/30/2022 until 11/30/2023 [facility] Work Phone: Comment on above: 1 Occurrences starting 11/30/2022 until 11/30/2023 SURG PATH REQUEST [facility] Comment on above: Release Upon Ordering for 1 Occurrences starting 04/12/2024, 1 completed Thrombin time [facility] Thyroglobulin Ab [Units/volume] in Serum or Plasma [facility] Thyroperoxidase Ab [Units/volume] in Serum or Plasma [facility] End: 08-12-2023 Troponin I.cardiac [Mass/volume] in Serum or Plasma Troponin I (One time) Lab Timed Once for 1 Occurrences starting 08/12/2023 until 08/12/2023 [facility] Work Phone: Comment on above: Once for 1 Occurrences starting 08/12/20 until 08/12/2023 URODYNAMICS WHI URODYNAMICS WHI Procedures Routine Incomplete bladder emptying Urinary urgency Urinary frequency Nocturia Ordered: 07/31/2023 [facility] Work Phone: Comment on above: Ordered: 07/31/2023 XR Shoulder - bilateral Views [facility] Immunizations Immunization Date Immunization Notes Care Provider Shante ria 12-11-2024 influenza virus vaccine, unspecified formulation Joanna Tuleta [facility] 07-01-2024 influenza, injectabl e, madin shaneka canine kidney, preservative free Eliceo Gómez DO Work Phone: [facility] 05-21-2024 Hepatitis B vaccine (recombinant), CpG adjuvanted Kathie Amezquita DPM Work Phone: [facility] 05-21-2024 meningococcal oligosaccharide (groups A, C, Y and W-135) diphtheria toxoid conjugate vaccine (MCV4O) Kathie Amezquita DPM Work Phone: [facility] 04-05-2024 zoster vaccine recombinant Kathie Amezquita DPM Work Phone: [facility] 04-05-2024 zoster vaccine, unspecified formulation Milagros Franco MD, PhD Work Phone: [facility] 12-21-2023 Influenza, injectabl e, Madin Shaneka Canine Kidney, preservative free, quadrivalent Kathie Amezquita DPM Work Phone: [facility] 12-21-2023 influenza virus vaccine, unspecified formulation Sandip Chavira [facility] 08-17-2022 influenza, injectabl e, quadrivalent, preservative free Kathie Amezquita DPM Work Phone: [facility] 08-17-2022 influenza virus vaccine, unspecified formulation Nelsy Chávez APRN.CNP Work Phone: [facility] 11-24-2021 Pfizer-BioNTech COVID-19 Vacc 30 MCG/0.3ML Intramuscular Suspension Eliceo Gómez Work Phone: [place] [address] DO Work Phone: 08-19-2021 KENALOG - 10 mg Erica Ranjit keys Other Present Other 05-11-2021 Pfizer-BioNTech COVID-19 Vacc 30 MCG/0.3ML Intramuscular Suspension Eliceo Gómez Work Phone: [place] [address] DO Work Phone: 05-10-2021 Pfizer Purple Cap SARS-CoV-2 Vaccination Kathie Amezquita DPM Work Phone: [facility] 04-20-2021 Pfizer-BioNTech COVID-19 Vacc 30 MCG/0.3ML Intramuscular Suspension Eliceo Gómez Work Phone: [place] [address] DO Work Phone: 04-19-2021 Pfizer Purple Cap SARS-CoV-2 Vaccination Kathie Amezquita DPM Work Phone: [facility] 09-02-2020 influenza, injectabl e, quadrivalent, preservative free Eliceo Gómez Work Phone: [place] [address] DO Work Phone: 08-06-2020 influenza, injectabl e, quadrivalent, preservative free Eliceo Gómez Work Phone: [facility] 06-22-2020 tetanus toxoid, redu nayeli diphtheria toxoid, and acellular pertussis vaccine, adsorbed Eliceo Gómez Work Phone: [place] [address] DO Work Phone: 02-01-2020 Toradol per [address] Other [place] [employer] Other 08-20-2019 influenza, injectabl e, quadrivalent, preservative free Kathie Amezquita DPM Work Phone: [facility] 07-15-2018 influenza, seasonal, injectable, preservative free Eliceo Gómez Work Phone: [facility] DO Work Phone: 07-14-2016 Rocephin 500 mg Beto ellis Other [facility] [employer] Other 05-12-2008 hepatitis B vaccine, adult dosage Eliceo Gómez Work Phone: [facility] DO Work Phone: 04-11-2008 hepatitis B vaccine, adult dosage Eliceo Gómez Work Phone: -[facility] DO Work Phone: Payers Date Payer Category Payer Commercial Managed C are - HMO [id number] 2024 Managed Care HMO (unspecified) PARAMOUNT HMO [id number] 2024 Unknown [id number] 2024 Medicare HMO [id number] 2024 Private Health Insurance [id number] 2024 Self-pay [id number] 2024 Medicare [id number] .[id number] 2024 Medicare (Managed Care) 1.2. [id number] .[id number] 2024 Medicare [id number] 2024 Private Health Insurance [id number] 2024 Private Health Insurance [id number] 2024 Unknown 2022 Medicaid [place] MED[place] [id number] 2021 Medicaid [employer] MEDICA ID PAR[employer]OUNT ADVANTAGE MEDICAID [id number] 2021-Present [phone] [place] [address] Medicaid [id number] [id number] .[id number] 2019 Medicaid [id number]. 1.13.159.2 .[id number] 1972 Unknown [id number] 2.16.840.1.542647.3.579.2 .176 1972 Unknown [id number] 2.16.840.1.074739.3.579.2 .593 1972 Unknown [id number] 2.16.840.1.160671.3.579.2 .593 1972 Unknown [id number] 2.16.840.1.514846.3.579.2 .593 1972 Unknown [id number] 2.16.840.1.856689.3.579.2 .593 1972 Unknown [id number] 2.16.840.1.188343.3.579.2 .59 1972 Unknown [id number] 2.16.840.1.321213.3.579.2 .593 1972 Unknown [id number] 2.16.840.1.552598.3.579.2 .59 1972 Unknown [id number] 2.16.840.1.275181.3.579.2 .593 1972 Unknown [id number] 2.16840.1.411727.3.579.2 .59 1972 Unknown [id number] 2.16.840.1.877282.3.579.2 .593 1972 Unknown [id number] 2.16.840.1.506598.3.579.2 .593 1972 Unknown [id number] 2.16.840.1.870074.3.579.2 .593 1972 Unknown [id number] 2.16.840.1.353424.3.579.2 .593 1972 Unknown [id number] 2.16.840.1.531278.3.579.2 .593 1972 Unknown [id number] 2.16.840.1.972380.3.579.2 .593 1972 Unknown [id number] 2.16.840.1.690460.3.579.2 .593 1972 Unknown [id number] 2.16.840.1.418265.3.579.2 .59 1972 Unknown [id number] 2.16.840.1.540151.3.579.2 .297 1972 Unknown [id number] 2.16840.1.041837.3.579.2 .297 1972 Unknown [id number] 2.16840.1.559671.3.579.2 .356 1972 Unknown [id number] 2.840.1.224602.3.579.2 .356 1972 Unknown [id number] 2.840.1.186613.3.579.2 .356 1972 Unknown [id number] 2.840.1.912262.3.579.2 .1286 1972 Unknown [id number] 2.840.1.040093.3.579.2 .594 1972 Unknown [id number] 2.840.1.283967.3.579.2 .594 1972 Unknown [id number] 2.840.1.562824.3.579.2 .594 1972 Unknown [id number] .840.1.478280.3.579.2 .594 1972 Unknown [id number] 2.840.1.213641.3.579.2 .594 1972 Unknown [id number] 840.1.797298.3.579.2 .594 1972 Unknown [id number] 2.840.1.842137.3.579.2 .594 1972 Unknown [id number] 2.840.1.649796.3.579.2 .594 1972 Unknown [id number] 2.840.1.379308.3.579.2 .594 1972 Unknown [id number] 2.840.1.372552.3.579.2 .594 1972 Unknown [id number] 2.16840.1.287910.3.579.2 .1258 1972 Unknown [id number] 2.840.1.141879.3.579.2 .1258 1972 Unknown [id number] 2.16840.1.527237.3.579.2 .1258 1972 Unknown [id number] 2.840.1.720894.3.579.2 .1258 1972 Unknown [id number] 2.840.1.505287.3.579.2 .1258 1972 Unknown [id number] 2.840.1.691849.3.579.2 .1258 1972 Unknown [id number] 2.840.1.909211.3.579.2 .1258 1972 Unknown [id number] 2.840.1.973034.3.579.2 .1258 1972 Unknown [id number] 2.840.1.916352.3.579.2 .1258 1972 Unknown [id number] 2.840.1.703732.3.579.2 .1258 1972 Unknown [id number] 2.840.1.328090.3.579.2 .1258 1972 Unknown [id number] .840.1.249333.3.579.2 .1258 1972 Unknown [id number] 2.840.1.545802.3.579.2 .1258 1972 Unknown [id number] 2.840.1.438704.3.579.2 .1258 1972 Unknown [id number] 2.840.1.754479.3.579.2 .1258 1972 Unknown [id number] 2.840.1.079958.3.579.2 .1258 1972 Unknown [id number] 2.16.840.1.695507.3.579.2 .1258 1972 Unknown [id number] 2.16.840.1.384551.3.579.2 .1285 1972 Unknown [id number] 2.16.840.1.157962.3.579.2 .1285 1972 Unknown [id number] 2.16.840.1.315864.3.579.2 .1285 1972 Unknown [id number] 2.16.840.1.543041.3.579.2 .1285 1972 Unknown [id number] 2.16.840.1.727980.3.579.2 .1285 1972 Unknown [id number] 2.16.840.1.725517.3.579.2 .1285 1972 Unknown [id number] 2.16.840.1.091846.3.579.2 .1285 1972 Unknown [id number] 2.16.840.1.271249.3.579.2 .1972 Unknown [id number] 2.16.840.1.511393.3.579.2 .1972 Unknown [id number] 2.16.840.1.590626.3.579.2 .1972 Unknown [id number] 2.16.840.1.701224.3.579.2 .1972 Unknown [id number] 2.16.840.1.411254.3.579.2 .1972 Unknown [id number] 2.16.840.1.351242.3.579.2 .1972 Unknown [id number] 2.16.840.1.590186.3.579.2 .1972 Unknown [id number] 2.16.840.1.298793.3.579.2 .196 1959 Medicaid [id number] 1959 Unknown [id number] Unknown [facility] [id number] Unknown [id number] 2.16.840.1.157603.3.579.2 .531 Unknown [id number] 2.16.840.1.547953.3.579.2 .531 Unknown [id number] 2.16.840.1.571200.3.579.2 .531 Unknown [id number] 2.16.840.1.998365.3.579.2 .531 Unknown [id number] 2.16.840.1.560704.3.579.2 .531 Unknown [id number] 2.16.840.1.294768.3.579.2 .531 Unknown [id number] 2.16.840.1.676277.3.579.2 .531 Unknown [id number] 2.16.840.1.428396.3.579.2 .531 Unknown [id number] 2.16.840.1.339173.3.579.2 .531 Unknown [id number] 2.16.840.1.861948.3.579.2 .531 Social History Date Type Detail Facility Start: 10-08-2020 End: 09-01-2022 Tobacco smoking status DCIS Never smoked tobacco [facility] Start: 10-08-2020 End: 09-01-2022 Tobacco use and exposure Smokeless tobacco non-user [facility] Start: 01-04-2022 End: 06-24-2025 Alcohol intake Lifetime non-drinker (finding) [facility] Start: 10-08-2020 History SDOH Alcohol Frequency 1 [facility] Start: 1970 Sex Assigned At Female C [facility] Start: 08-30-2020 End: 07-26-2022 Exposure to SARS-CoV-2 (event) Not sure [facility] Start: 10-08-2020 End: 11-23-2020 Sex Assigned At [facility] Start: 10-08-2020 End: 11-23-2020 No alcohol use No alcohol use [facility] Comment on above: 3 TEA WEEK; How often to you hav e a drink containing alcohol? Never [facility] Average Number of Drinks Not on file [facility] Start: 07-28-2020 Gender identity Identifies as female gender (finding) [facility] Start: 07-03-2021 Sexual orientation Heterosexual (fin quintin) [facility] Start: 06-05-2023 End: 06-05-2023 Tobacco smoking status NHIS Smoker (finding) [facility] Start: 1970 Sex Assigned At Not on file [facility] Tobacco smoking stat us [facility] Tobacco smoking consumption unknown [facility] Within the last year , have [...] Start: 06-11-2015 End: 09-16-2024 Sex Female (finding) [facility] Start: 01-18-2024 End: 07-15-2025 Alcoholic beverage intake Ex-drinker (finding) [facility] How hard is it for y ou [...] Equipment Original Text Equipment Identifier Dates Fibertak Willis Self-Punching Knotless 2.6mm W/No 5 Suture [id number] Start: 10-14-2020 Fibertak Willis Knotless 2.6mm [id number] Start: 10-14-2020 Willis Swivelock C 4.75mm Biocomposite Peek 19.1mm Suture Closed Eyelet - [id number] Start: 10-14-2020 Sling Gynecare T vt Exact Gynecological Stress Urinary Incontinence - [id number] Start: 12-24-2021 DISC CERVICAL 13 X15X5H MOBI-C FDA Start: 09-20-2017 DISC CERVICAL 13 X15X5H MOBI-C FDA Start: 09-20-2017 DISC CERVICAL 13 X15X5H MOBI-C FDA Start: 09-20-2017 DISC CERVICAL 13 X15X5H MOBI-C FDA Start: 09-20-2017 DISC CERVICAL 13 X15X5H MOBI-C FDA Start: 09-20-2017 Lead Intrstim Mr i 28cm - [id number] Start: 01-26-2024 Interstim X Rech arge Free Neurostimulator - [id number] Start: 01-26-2024 DISC CERVICAL 13 X15X5H MOBI-C FDA Start: 09-20-2017 DISC CERVICAL 13 X15X5H MOBI-C FDA Start: 09-20-2017 DISC CERVICAL 13 X15X5H MOBI-C FDA Start: 09-20-2017 DISC CERVICAL 13 X15X5H MOBI-C FDA Start: 09-20-2017 DISC CERVICAL 13 X15X5H MOBI-C FDA Start: 09-20-2017 DISC CERVICAL 13 X15X5H MOBI-C FDA Start: 09-20-2017 Generator Nrstm - [id number] Start: 01-02-2024 Lead Ns Respirat ory - [id number] Start: 01-02-2024 Lead Nrstm Inspr 3 Elect Cuf Tnl Boni Strl Lf - [id number] - [id number] Start: 01-02-2024 DISC CERVICAL 13 X15X5H MOBI-C FDA Start: 09-20-2017 DISC CERVICAL 13 X15X5H MOBI-C FDA Start: 09-20-2017 DISC CERVICAL 13 X15X5H MOBI-C FDA Start: 09-20-2017 DISC CERVICAL 13 X15X5H MOBI-C FDA Start: 09-20-2017 DISC CERVICAL 13 X15X5H MOBI-C FDA Start: 09-20-2017 Goals Date Patient Goal Desired Activity /State Functional Status Date Assessment Result Facility 06-24-2025 Total score [AUDIT-C] 0 06/24/20 25 8:59 AM EDT Nida Toro MA [facility] 06-24-2025 Patient Health Quest ionnaire 2 item (PHQ-2) [Reported] [facility] 06-06-2025 Patient Health Quest ionnaire 2 item (PHQ-2) [Reported] [facility] Clinical Notes 10-27-2020 to 07-29-2025 Alberto Solis MD - 07/29/2025 6:41 PM EDTCmarino Bhat MD - 07/15/2025 9:00 AM EDTPatient CECILIA Pickens - 07/09/2025 3:00 PM EDTWendy Colon MA - 06/24/2025 9:00 AM EDT Note Date & Type Note Facility 07-29-2025 History of Present illness Narrative KUB order placed, back with information requested. documented in this encounter [facility] 07-15-2025 History of Present illness Narrative Images from the original note were not included. [address] [facility] [id number] Mary Leal is a 55 y.o. right-handed [...] as the day goes on. EMG at [facility] in 04/2025 showed (R/L) sural SNAPs of [...] 65 mg by mouth every other day. nyswfshepiu-ohiqlfidd-jmlskglv (TRELEGY ELLIPTA) 100-62.5-25 mcg blister with device [...] mg 2.5 mg nebulization PRN Gwendolyn Stroud, DANN-MAINTENANCE JOB TITLES Past Medical History: Diagnosis Date ADD (attention [...] 03/20/2020 Performed by Alberto Solis MD at [facility] ENDOSCOPY EGD, DILATATION N/A 09/25/2020 Performed by Alberto Solis MD at [facility] ENDOSCOPY ENDOSCOPIC DIAGNOSTIC DRUG INDUCED SLEEP Bilateral 09/19/2023 Performed by Cullen Dawkins MD at [facility] ESOPHAGOGASTRODUODENOSCOPY BIOPSY N/A 06/27/2025 Performed by Alberto Solis MD at [facility] ENDOSCOPY FOOT SURGERY 06/25/2020 left foot surgery FOOT SURGERY Right 10/2022 and 05/2023 HYSTERECTOMY 2015 INSERTION STIMULATOR NERVE HYPOGLOSSAL Right 01/02/2024 Performed by Cullen Dawkins MD at [facility] LASER LINGUAL TONISILLECTOMY Circumferential 07/08/2021 Performed by Alexei Avila MD PhD at [facility] MRI FOOT LEFT NECK SURGERY 2017 PLANTAR FASCIECTOMY RELEASE PHARYNGEAL SCAR CPT 91755 Circumferential 07/08/2021 Performed by Alexei Avila MD [...] Avila MD PhD at [facility] Allergies Allergen Reactions Risperidone Other (See Comments) [...] Resource Strain: Low Risk (06/04/2025) Received from [facility] Overall Financial Resource Strain (CARDIA) Difficulty of Paying Living Expenses: Not very hard Food Insecurity: No Food Insecurity (07/15/2025) Hunger Screening Food Insecurity - Worry: Never True Food Insecurity - Inability: Never True Transportation Needs: No Transportation Needs (06/04/2025) Received from [facility] PRAPARE - Transportation Lack of Transportation (Medical): No Lack of Transportation (Non-Medical): No Physical Activity: Sufficiently Active (06/04/2025) Received from [facility] Exercise Vital Sign Days of Exercise per Week: 5 days Minutes of Exercise per Session: 30 min Stress: No Stress Concern Present (06/04/2025) Received from [facility] [place] of Occupational Health - Occupational Stress Questionnaire Feeling of Stress : Not at all Social Connections: Socially Isolated (06/04/2025) Received from [facility] Social Connection and Isolation Panel [NHANES] Frequency of Communication with Friends and Family: More than three times a week Frequency of Social Gatherings with Friends and Family: More than three times a week Attends Anabaptist Services: Never Active Member of Clubs or Organizations: No Attends Club or Organization Meetings: Never Marital Status: Interpersonal Safety: Not At Risk (06/04/2025) Received from [facility] Humiliation, Afraid, Rape, and Kick questionnaire Fear of Current or Ex-Partner: No Emotionally Abused: No Physically Abused: No Sexually Abused: No Housing Instability: High Risk (06/04/2025) Received from [facility] Housing Stability Vital Sign Unable to Pay for Housing in the Last Year: Yes Number of Times Moved in the Last Year: 0 Homeless in the Last Year: No Admission on 06/27/2025, Discharged on 06/27/2025 Component Date Value Ref Range Status Case Report 06/27/2025 Final Value:Surgical Pathology Report Case: [id number] Authorizing Provider: Alberto Solis MD Collected: 06/27/2025 [id number] Ordering Location: [facility] Received: 06/27/2025 1512 - Endoscopy Pathologist: [...] and submitted entirely in a single cassette. (1,ns,[id number], m1) SW 2. Received in formalin labeled ELVIS, duodenal biopsy , are 6 jaimes feathery tissue bits 0.2 cm - 0.3 cm. The specimen is filtered and submitted entirely in a single cassette. (1,ns,[id number], m1) Lab on 05/13/2025 Component Date Value [...] your MRIs when able. Ingrid Bhat MD [employer] [facility] 07/15/25 I spent 62 minutes of [...] for specific details. documented in this encounter [employer] 07-15-2025 Instructions Ingrid Bhat MD - 07/15/2025 9:00 AM EDT It was a pleasure seeing you in clinic today. Your neurologist: Dr. Ingrid Bhat Plan: -Get bloodwork done when able. -Schedule your EMG when able -Schedule your MRIs when able. Thank you for entrusting me with your care. Ingrid Bhat MD [employer] Neu[employer] [facility] 07/15/25 documented in this encounter [employer] 07-09-2025 History of Present illness Narrative Images [...] ERUPTION Left Forearm - Anterior, Right Buttock Ailey patches and papules Atopic dermatitis vs Allergic [...] 4-6 weeks rash documented in this encounter [facility] 07-03-2025 History of Present illness Narrative Can you call pathology and see if the final duodenal biopsies are negative for disaccharidase deficiency as requested. documented in this encounter [facility] 07-03-2025 Miscellaneous Notes ----- Message from MAKI Grimaldo sent at 07/04/2025 9:05 AM EDT ----- Result on your desk for review ----- Message ----- From: Alberto Solis MD Sent: 07/03/2025 12:16 PM EDT To: [facility] Gael Can you call pathology and [...] do the disaccharidase testing His extension is [id number] or cell: [phone] ----- Message ----- From: Alberto Solis MD [...] MD Sent: 07/03/2025 12:16 PM EDT To: [facility] Gael Can you call pathology and [...] testing His extension is [id number] or cell: [phone] ----- Message ----- From: Alberto Solis MD [...] MD Sent: 07/03/2025 12:16 PM EDT To: [facility] Gael Can you call pathology and see if the final duodenal biopsies are negative for disaccharidase deficiency as requested. ----- Message ----- From: Lab, Background User Sent: 07/02/2025 2:32 PM EDT To: Alberto Solis MD documented in this encounter [facility] 07-03-2025 Telephone encounter Note ----- Message from MAKI Grimaldo sent at 07/04/2025 9:05 AM EDT ----- Result on your desk for review ----- Message ----- From: Alberto Solis MD Sent: 07/03/2025 12:16 PM EDT To: [facility] Gael Can you call pathology and see if the final duodenal biopsies are negative for disaccharidase deficiency as requested. ----- Message ----- From: Lab, Background User Sent: 07/02/2025 2:32 PM EDT To: Alberto Solis MD [facility] 07-03-2025 Telephone encounter Note Reviewed, but the disaccharide testing still is not on the pathology [facility] 07-03-2025 Telephone encounter Note ----- Message from MAKI Grimaldo sent at 07/09/2025 1:48 PM EDT ----- Dr Yohannes Thompson left a voicemail, stating that a biopsy was not received to do the disaccharidase testing His extension is [id number] or cell: [phone] ----- Message ----- From: Alberto Solis MD [...] MD Sent: 07/03/2025 12:16 PM EDT To: [facility] Gael Can you call pathology and see if the final duodenal biopsies are negative for disaccharidase deficiency as requested. ----- Message ----- From: Lab, Background User Sent: 07/02/2025 2:32 PM EDT To: Alberto Solis MD [facility] 07-03-2025 Telephone encounter Note I am not [...] duodenal specimens were collected and [facility] appropriately. [facility] Tele[facility] encounter Note See my note----- Message from MAKI Grimaldo sent at 07/09/2025 1:48 PM EDT ----- Dr Yohannes Thompson left a voicemail, stating that a biopsy was not received to do the disaccharidase testing His extension is [id number] or cell: [phone] ----- Message ----- From: Alberto Solis MD [...] MD Sent: 07/03/2025 12:16 PM EDT To: [facility] Gael Can you call pathology and see if the final duodenal biopsies are negative for disaccharidase deficiency as requested. ----- Message ----- From: Lab, Background User Sent: 07/02/2025 2:32 PM EDT To: [facility] 06[facility]24[facility]2025 History of Present illness Narrative Images from the original note were not included. Dipti Acevedo, DO Obstetrics and Gynecology Mary Leal 1970 06/24/25 [id number] Yearly Wellness Exam Chief Complaint Patient presents [...] EVERY DAY FOR 30 DAYS Multiple Vitamin (Daily-Eilsa Multivitamin) tablet Take 1 tablet by mouth [...] reconstruction FOOT TENDON SURGERY 11/13/2023 HYSTERECTOMY 2014 [facility] BS INTRAUTERINE DEVICE INSERTION 2012 Mirena OTHER SURGICAL HISTORY scar tissue removed from tonsils ROTATOR CUFF REPAIR Right 10/2016 TONSILLECTOMY 02/11/2021 TUBAL LIGATION Bilateral 2005 VAGINA SURGERY 10/24/2024 excision of vaginal cuff [...] costovertebral angle tenderness, no obvious scoliosis/kyphosis. 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 documented in this encounter [facility] 06-06-2025 History of Present illness Narrative Images [...] the patient today documented in this encounter [facility] 06-06-2025 History of Present illness Narrative [facility] Initial Gastroenterology/Hepatology Consultation Note IDENTIFYING DATA PATIENT: [...] carcinoma (BCC) of chest (04/04/2023), Bipolar disorder ([facility]), Chronic interstitial cystitis (04/06/2023), Chronic sinusitis (07/07/2022), [...] office visit from this past October, from [facility] where she is seen for bloating, [...] 03/20/2020 Performed by Alberto Solis MD at [facility] ENDOSCOPY EGD, DILATATION N/A 09/25/2020 Performed by Alberto Solis MD at [facility] ENDOSCOPY ENDOSCOPIC DIAGNOSTIC DRUG INDUCED SLEEP Bilateral 09/19/2023 Performed by Cullen Dawkins MD at [facility] FOOT SURGERY 06/25/2020 left foot surgery FOOT SURGERY Right 10/2022 and 05/2023 HYSTERECTOMY 2015 INSERTION STIMULATOR NERVE HYPOGLOSSAL Right 01/02/2024 Performed by Cullen Dawkins MD at [facility] LASER LINGUAL TONISILLECTOMY Circumferential 07/08/2021 Performed by Alexei Avila MD PhD at [facility] FOOT LEFT NECK SURGERY 2017 PLANTAR FASCIECTOMY RELEASE PHARYNGEAL SCAR CPT 86805 Circumferential 07/08/2021 Performed by Alexei Avila MD [...] mouth every other day., Disp: , Rfl: rlnztdnrmgq-rtjzxfgav-cpycuyuz (TRELEGY ELLIPTA) 100-62.5-25 mcg blister with device, [...] 2.5 mg, 2.5 mg, nebulization, PRN, Gwendolyn L Kregel, 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NA[employer]CE [employer] PRNs: albuterol, 2.5 mg, PRN REVIEW OF [...] VITAMIN B12: Lab Results Component Value Date [id number] 214 05/13/2025 FOLATE: Lab Results Component Value [...] of Mary Leal. Alberto Solis MD, MPH [facility] [place] [address] PH: [phone] documented in this encounter [facility] 06-04-2025 Miscellaneous Notes Electrocardiograph Technician received a call from the patient regarding test results. Patient would like a call bck to discuss lab results please. Please advise. Contact natividad Hernandez [phone]. Thank you so much. Lab results were [...] daily. She should also be taking regular nidu-ynd-yqgyccp vitamin-D supplement every day. Did she have her EMG results sent to us? Thank you RN called and left for patient advising on results and recommendations. Also advised that we have been unsuccessful in getting EMG results if she could reach out to that office to get them faxed to our office. documented in this encounter [facility] 06-04-2025 Telephone encounter Note Electrocardiograph Technician received a call from the patient regarding test results. Patient would like a call bck to discuss lab results please. Please advise. Contact natividad Hernandez [phone]. Thank you so much. [facility] 06-04-2025 Telephone encounter Note Lab results were [...] daily. She should also be taking regular utox-jpr-wirpfxb vitamin-D supplement every day. Did she have her EMG results sent to us? Thank you [facility] 06-04-2025 Telephone encounter Note RN called and left for patient advising on results and recommendations. Also advised that we have been unsuccessful in getting EMG results if she could reach out to that office to get them faxed to our office. [facility] 04-30-2025 Evaluation note Diagnosis Onset Date Resolution Lumbar radiculopathy acute April 30, 2025 3:53pm Polyneuropathy acute April 30, 2025 3:53pm [facility] Work Phone: 1(631) 159-608804-21-2025 Telephone encounter Note* Telephone Encounter - Rosmery Horan - 02/24/2025 2:49 PM EDT Pt would like to know if NANCY can increase her Estradiol dose because she is having more hot flashesduring the daytime. She takes the medication in the mornings. [facility] contact [id number] Miscellaneous Notes* Telephone Encounter - Rosmery Horan - 02/24/2025 2:49 PM EDT Pt would like to know if WDB can increase her Estradiol dose because she is having more hot flashesduring the daytime. She takes the medication in the mornings. Please contact documented in this encounterCrossroads [facility] [id number] Miscellaneous Notes* Telephone Encounter - Demi Machado [...] preferred: 30 day [facility] [place] If already on preferred pharmacy list - [...] office about this. Patient's callback# if needed: [phone]. Patient stated she no longer has [place] Medicaid and now has the following (informed patient we don't have this on our covered/non-covered list so I provided her with our tax ID# to check with insurance): Insurance Name: [facility] Medicare Dual Complete ID#: [id number] Grp#: [id number] RxGrp#: [id number] RxBIN#: [id number] RxPCN#: [id number] Provider Service Line phone#: [phone] * Telephone Encounter - Kim Acharya RN - 12/10/2024 4:16 PM EST Refill request for Emgality 120mg/ml verified in refill encounter 05/14/24. Pended to Dr. Christensen for review and signature Start date from last refill: 05/15/24 Next follow up: not yet scheduled [facility] [id number] Telephone encounter Note* Telephone Encounter - Demi [...] preferred: 30 day [facility] [place] If already on preferred pharmacy list - [...] office about this. Patient's callback# if needed: [phone]. Patient stated she no longer has [place] Medicaid and now has the following (informed patient we don't have this on our covered/non-covered list so I provided her with our tax ID# to check with insurance): Insurance Name: [employer] Medicare Dual Complete ID#: [id number] Grp#: [id number] RxGrp#: [id number] RxBIN#: [id number] RxPCN#: [id number] Provider Service Line phone#: [phone] [employer]02-04-2025 Telephone encounter Note* Telephone Encounter - Kim Acharya RN - 12/10/2024 4:16 PM EST Refill request for Emgality 120mg/ml verified in refill encounter 05/14/24. Pended to Dr. Christensen for review and signature Start date from last refill: 05/15/24 Next follow up: not yet scheduled [employer]01-15-2025 Evaluation note* Diagnosis Onset Date Resolution Status Admit Date Cervical radiculopathy acute [facility] 2024 1:13pm [facility] Work Phone: 1(822) 909-848001-14-2025 History of Present illness Narrative* STELLA Espinal [...] 1 year, skin check documented in this encounterCrossroads Regional Medical [id number] Nuclear medicine Diagnostic study [facility] [place] [address] [place] [address] Nuclear Medicine Report Signed Patient: Mary Leal MR#: [id number] : 1970 Acct:[id number] Age/Sex: 54 / F ADM Date: 5 Loc: NM Room: Type: [facility] Attending Dr: Padmaja Ledezma MD Copies to: Quinton Melendez Jr, DO Na Li, MD~ Ordering Provider: Padmaja Ledezma MD Date of Service: 11/14/24 NE/NE gastric emptying study: R14.0 K31.84 GASTRIC EMPTYING [...] of the radiotracer remained within the stomach. NE/NE gastric emptying study IMPRESSION: No scintigraphic evidence of gastroparesis. Impression dictated by: Quinton Melendez Jr., D.O.11/14/2024 1:54 PM Dictation Location: [facility]- Transcribed By: [facility] 11/14/24 1354 Dictated By: Quinton Melendez Jr, DO 11/14/24 1354 Signed By: 11/14/24 1354 [facility]01-07-2025 History of Present illness Narrative * Wendy Colon MA - 11/12/2024 8:30 AM EST Images from the original note were not included. 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 Eating a regular diet with difficulty. [...] Review Audit Reviewed by Nida Toro MA (Group Director Experience) on 11/12/24 at 0827 Medication Order Taking? Sig Documenting Provider Last Dose Status Nimolifsteven Maintena 300 MG injection syringe [id number] inject INTRAMUSCULARLY ONCE A MONTH (BRING TO OFFICE FOR PROVIDER TO ADMINISTER) Active albuterol HFA 90 mcg/act inhaler [id number] Inhale 2 puffs every 4 (four) hours if needed for wheezing Eliceo Gómez, DO 10/19/24 9884 atenolol (Tenormin) 50 MG tablet [id number] Take 1 tablet (50 mg) by mouth Daily Eliceo Gómez DO Active cholecalciferol (Vitamin D-3) 125 MCG (5000 UT) capsule [id number] Take 125 mcg by mouth Daily Dipti Acevedo DO Active colestipol (Colestid) 1 g tablet [id number] Take 1 g by mouth in the morning and 1 g in the evening. Dipti Acevedo DO Active Daridorexant HCl (Quviviq) 50 MG tablet [id number] Take 50 mg by mouth at bedtime Eliceo Gómez DOActive estradiol (Estrace) 0.1 MG/GM vaginal cream [id number] APPLY 0.5G VAGINALLY TWICE WEEKLY. Dipti Acevedo DO Active estradiol (Estrace) 1 MG tablet [id number] Take 1 tablet (1 mg) by mouth Daily Dipti Acevedo DO Active ferrous sulfate 325 (65 Fe) MG tablet [id number] Take 325 mg by mouth every other day Ron King, DEMARCUS Active fluvoxaMINE (Luvox) 50 MG tablet [id number] Take 50 mg by mouth at bedtime Dipti Acevedo DO Active galcanezumab (Emgality) 120 MG/ML auto-injector [id number] Inject 120 mg under the skin every 30 (thirty) days Dipti Acevedo DO Active L-Theanine 200 MG capsule [id number] Take 1 capsule by mouth Daily Adriana Cruz MD Active losartan (Cozaar) 25 MG tablet [id number] Take 1 tablet (25 mg) by mouth Daily Eliceo Gómez DO Active methylphenidate ER (Concerta) 54 MG CR tablet [id number] Take 54 mg by mouth Daily Eliceo Gómez DO Active mirabegron ER (Myrbetriq) 50 MG 24 hr tablet [id number] Take 1 tablet (50 mg) by mouth at bedtime Do not crush, chew, or split. Dipti Acevedo DO Active Multiple Vitamin (Daily-Elisa Multivitamin) tablet [id number] Yes Take 1 tablet by mouth Daily Melina Acevedo DO Active omeprazole (PriLOSEC) [address] capsule [id number] Take 40 mg by mouth in the morning. Active Quviviq 25 MG tablet [id number] TAKE 1 TABLET BY MOUTH BEDTIME ( NEEDED) FOR SLEEP Dipti Acevedo DO Active rOPINIRole (Requip) 1 MG tablet [id number] Take 1 tablet (1 mg) by mouth in the morning. Eliceo Gómez DO Active rOPINIRole (Requip) 2 MG tablet [id number] Take 1 tablet (2 mg) by mouth at bedtime Eliceo Gómez DO Active Trelegy Ellipta 100-62.5-25 MCG/ACT aerosol powder [id number] INHALE 1 PUFF BY MOUTH DAILY Eliceo Gómez DO Active triamcinolone (Kenalog) 0.1 % cream [id number] Apply topically 2 (two) times a day [...] RLS (restless legs syndrome) Urinary incontinence 2022 Visual impairment 2009 Past Surgical History: Procedure [...] reconstruction FOOT TENDON SURGERY 11/13/2023 HYSTERECTOMY 2014 [facility] INTRAUTERINE DEVICE INSERTION 2012 Mirena OTHER SURGICAL [...] and rhythm Lungs: b/l clear Female genitalia: Presiding Steward in room, no evidence of infection, cuff [...] performed and the decisions I made. Signature Zoya Mishra.O. Date 11/12/24 Time 5:00PM. 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 Eating a regular diet without difficulty. [...] Review Audit Reviewed by Nida Toro MA (Group Director Experience) on 10/28/24 at 1502 Medication Order Taking? Sig Documenting Provider Last Dose Status Abilirupal Maintena 300 MG injection syringe [id number] inject INTRAMUSCULARLY ONCE A MONTH (BRING TO OFFICE FOR PROVIDER TO ADMINISTER) Active albuterol HFA 90 mcg/act inhaler [id number] Inhale 2 puffs every 4 (four) hours if needed for wheezing Eliceo Gómez, DO 10/19/24 0112 atenolol (Tenormin) 50 MG tablet [id number] Take 1 tablet (50 mg) by mouth Daily Eliceo Gómez DO Active cholecalciferol (Vitamin D-3) 125 MCG (5000 UT) capsule [id number] Take 125 mcg by mouth Daily Dipti Acevedo DO Active colestipol (Colestid) 1 g tablet [id number] Yes Take 1 g by mouth in the morning and 1 g in the evening. Dipti Acevedo DO Active Daridorexant HCl (Quviviq) 50 MG tablet [id number] Take 50 mg by mouth at bedtime Eliceo Gómez DOActive Discontinued 10/22/24 0842 estradiol (Estrace) 0.1 MG/GM vaginal cream [id number] APPLY 0.5G VAGINALLY TWICE WEEKLY. Dipti Acevedo DO Active estradiol (Estrace) 1 MG tablet [id number] Take 1 tablet (1 mg) by mouth Daily Dipti Acevedo DO Active ferrous sulfate 325 (65 Fe) MG tablet [id number] Take 325 mg by mouth every other day Ron King NP Active fluvoxaMINE (Luvox) 50 MG tablet [id number] Take 50 mg by mouth at bedtime Dipti Acevedo DO Active galcanezumab (Emgality) 120 MG/ML auto-injector [id number] Inject 120 mg under the skin every 30 (thirty) days Dipti Acevedo DO Active L-Theanine 200 MG capsule [id number] Take 1 capsule by mouth Daily Adriana Cruz MD Active losartan (Cozaar) 25 MG tablet [id number] Take 1 tablet (25 mg) by mouth Daily Eliceo Gómez DO Active methylphenidate ER (Concerta) 54 MG CR tablet [id number] Take 54 mg by mouth Daily Eliceo Gómez DO Active mirabegron ER (Myrbetriq) 50 MG 24 hr tablet [id number] Take 1 tablet (50 mg) by mouth at bedtime Do not crush, chew, or split. Dipti Acevedo DO Active omeprazole (PriLOSEC) [address] capsule [id number] Take 40 mg by mouth in the morning. Active Quviviq 25 MG tablet [id number] Yes TAKE 1 TABLET BY MOUTH BEDTIME ( NEEDED) FOR SLEEP Dipti Acevedo DO Active rOPINIRole (Requip) 1 MG tablet [id number] Take 1 tablet (1 mg) by mouth in the morning. Eliceo Gómez DO Active rOPINIRole (Requip) 2 MG tablet [id number] Take 1 tablet (2 mg) by mouth at bedtime Eliceo Gómez DO Active Trelegy Ellipta 100-62.5-25 MCG/ACT aerosol powder [id number] INHALE 1 PUFF BY MOUTH DAILY Eliceo Gómez DO Active triamcinolone (Kenalog) 0.1 % cream [id number] Apply topically 2 (two) times a day Dipti Acevedo DO Active Past Medical History: Diagnosis Date ADHD (attention deficit hyperactivity disorder) ([facility]) 1994 Asthma ([facility]) Basal cell carcinoma right chest Colon polyp Compressed cervical disc Cystocele 2021 Depression ([facility]) Difficulty walking 05/12/23 Eczema 2022 Endometriosis 2014 Fissure, anal Gastroparesis GERD (gastroesophageal reflux disease) 1994 Hormone disorder 2018 Hypertension ([facility]) 2000 Migraine ([facility]) OCD (obsessive compulsive disorder) ([facility]) Panic attack ([facility]) 04/28 Rectocele 2021 RLS [...] reconstruction FOOT TENDON SURGERY 11/13/2023 HYSTERECTOMY 2014 [facility] BS INTRAUTERINE DEVICE INSERTION 2013 [...] at baseline unless noted below. Female genitalia: Presiding Steward in room, no evidence of infection, cuff [...] Date 10/28/24 Time 5:00PM. documented in this [facility]12-18-2024 History of Present illness Narrative* Radha Cardenas MD - 10/23/2024 11:00 AM EST Images from the original note were not included. GASTROENTEROLOGY CLINIC FOLLOW-UP VISIT Referring Provider for today's consult: No ref. provider found Primary Care Provider: Shannon Gómez MEREDITH: 08/07/24 CC: gastroparesis History of Present Illness Mary Leal is a 54 y.o. female who presents to the [facility] G[facility] today for follow-up of diarrhea, [...] with burning symptoms 12/07/22 EGD with JULIANA LA grade D esophagitis, pyloric balloon dilator [...] gain. She has an appointment with a document control specialist 10/28. She was started on buspar for uncontrolled anxiety by her PCP. Loose stools 4-8 times a day [place] 6. Occasional BRBPR. Reglan increased diarrhea, does [...] & Nutrition Department of Internal Medicine [facility] Pager [phone] or [employer] Chat with questions * Adriana Peace MA - 10/23/2024 11:00 AM EST This keno writer / runner verified the patient's name and . * [...] Negative stool O&P. 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 At interval, persistent loose stool [place] type 6 about 5-6 times daily with [...] Leal was offered and accepted a Medical Presiding Steward for this exam/procedure/test 10/23/2024.Name of Medical Presiding Steward: Tania Riggs [facility] Instructions* Patient Instructions* Radha Cardenas MD - [...] will either call you, send you a [employer] message, or mail you aletter with the results of your tests within 1-2 weeks after you have completed your tests. If you do not hear from our office, please call the clinic to receive your results at [phone]. As a reminder, [facility] [employer] should not be used as a form of communication that replaces an office visit. It can be used for reminders and clarifications If you need to fax old records in, please fax to [phone]. If you have any concerning symptoms, please seek immediate medical attention. [facility] History of Present illness Narrative* Wendy Colon MA - 10/15/2024 3:30 PM EST Images from the original note were not included. Dipti Acevedo, DO Obstetrics and Gynecology Mary Leal 1970 10/15/24 [id number] Pre Operative Exam Chief Complaint Patient presents [...] reconstruction FOOT TENDON SURGERY 11/13/2023 HYSTERECTOMY 2014 [facility] BS INTRAUTERINE DEVICE INSERTION 2013 [...] costovertebral angle tenderness, no obvious scoliosis/kyphosis. 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 documented in this encounterCrossroads Regional Medical [id number] Evaluation note* Diagnosis Onset Date Resolution Status Admit Date Cervical radiculopathy acute De cember 2023 8:25am Cervical radiculopathy acute Ja ary 2024 1:13pm [facility] Work Phone: 1(777) 587-684711-22-2024 History of Present illness Narrative* Wendy Colon MA - 09/27/2024 11:45 AM EST Images from the original note were not included. Dipti Acevedo, DO Obstetrics and Gynecology Mary Leal 1970 09/27/24 [id number] Exam Chief Complaint Patient presents with Follow-up [...] reconstruction FOOT TENDON SURGERY 11/13/2023 HYSTERECTOMY 2015 [facility] BS INTRAUTERINE DEVICE INSERTION 2013 Mirena OTHER SURGICAL HISTORY scar tissue removed from tonsils ROTATOR CUFF REPAIR Right 10/2016 SPINE SURGERY 2017 TONSILLECTOMY 02/11/2021 TUBAL LIGATION Bilateral 2006 Past Medical History: Diagnosis Date ADHD (attention deficit hyperactivity disorder) ([facility]) 1994 Asthma ([facility]) Basal cell carcinoma right chest Colon polyp Compressed cervical disc Cystocele 2021 Depression (CMS/HCC) Difficulty walking 05/12/23 Eczema 2022 Endometriosis 2015 Fissure, anal Gastroparesis GERD (gastroesophageal reflux disease) 1995 Hormone disorder 2019 Hypertension (CMS/HCC) 2000 Migraine ([facility]) OCD (obsessive compulsive disorder) ([facility]) Panic attack ([facility]) 04/28 Rectocele 2021 RLS (restless legs syndrome) Urinary incontinence 2022 Varicella 1984 Visual impairment 2010 ROS See HPI EXAM GENERAL EXAMINATION alert oriented well developed, well nourished. 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 Granulation [...] Date 09/27/24 Time 5:00PM. documented in this [facility]11-21-2024 History of Present illness Narrative* Ron [...] Prior to Visit Medication Sig Dispense Refill Lolis Maintena 300 [...] tonsil hypertrophy Major depressive disorder, recurrent, moderate (CMS/HCC) Nasal congestion Nausea Partial nontraumatic rupture of right rotator cuff Poor urinary stream Stress incontinence in female Unspecified inflammatory spondylopathy, cervical region ([facility]) Urinary urgency Wheezing Pain due to internal orthopedic prosthetic devices, implants and grafts, initial encounter ([facility]) Belching Past Medical History: Past Medical History: Diagnosis Date ADHD (attention deficit hyperactivity disorder) ([facility]) 1994 Asthma ([facility]) Basal cell carcinoma right chest Colon polyp Compressed cervical disc Cystocele 2021 Depression ([facility]) Difficulty walking 05/12/23 Eczema 2022 Endometriosis 2015 Fissure, anal Gastroparesis GERD (gastroesophageal reflux disease) 1994 Hormone disorder 2019 Hypertension ([facility]) 1999 Migraine ([facility]) OCD (obsessive compulsive disorder) ([facility]) Panic attack ([facility]) 04/28 Rectocele 2021 RLS [...] reconstruction FOOT TENDON SURGERY 11/13/2023 HYSTERECTOMY 2014 [facility] BS INTRAUTERINE DEVICE INSERTION 2013 [...] 10 min Stress: Stress Concern Present (05/01/2024) [place] of Occupational Health - Occupational Stress Questionnaire Feeling of Stress : Rather much Social Connections: Socially Isolated (05/01/2024) Social Connection and Isolation Panel [NHANES] Frequency of Communication with Friends and Family: More than three times a week Frequency of Social Gatherings with Friends and Family: More than three times a week Attends Anabaptist Services: Never Active Member of Clubs or Organizations: No Attends Club or Organization Meetings: Never Marital Status: Intimate Partner Violence: Not At Risk (06/23/2023) Received from [employer] Threatened: Not on file Insulted: Not [...] or fail to improve. documented in this encounterCrossroads Regional Medical [id number] History of Present illness Narrative* Wendy Colon MA - 09/24/2024 8:15 AM EST Images from the original note were not included. Dipti Acevedo, DO Obstetrics and Gynecology Mary Leal 1970 09/24/24 [id number] Exam Chief Complaint Patient presents with Gynecologic Exam C/o bleeding after intercourse. LMP: [facility] BS 2014. Visit Vitals OB Status Hysterectomy [...] reconstruction FOOT TENDON SURGERY 11/13/2023 HYSTERECTOMY 2015 [facility] BS INTRAUTERINE DEVICE INSERTION 2013 Mirena OTHER SURGICAL HISTORY scar tissue removed from tonsils ROTATOR CUFF REPAIR Right 10/2016 SPINE SURGERY 2017 TONSILLECTOMY 02/11/2021 TUBAL LIGATION Bilateral 2006 Past Medical History: Diagnosis Date ADHD (attention deficit hyperactivity disorder) ([facility]) 1994 Asthma ([facility]) Basal cell carcinoma right chest Colon polyp Compressed cervical disc Cystocele 2021 Depression ([facility]) Difficulty walking 05/12/23 Eczema 2022 Endometriosis 2015 Fissure, anal Gastroparesis GERD (gastroesophageal reflux disease) 1994 Hormone disorder 2018 Hypertension ([facility]) 2000 Migraine (CMS/HCC) OCD (obsessive compulsive disorder) ([facility]) Panic attack ([facility]) 04/28 Rectocele 2021 RLS (restless legs syndrome) Urinary incontinence 2022 Varicella 1984 Visual impairment 2010 ROS See HPI EXAM GENERAL EXAMINATION alert oriented well developed, well nourished. HEAD: normocephalic atraumatic. EYES: sclera anicteric. EARS: no obvious hearing deficit. 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 documented in this [facility]11-11-2024 Evaluation note* Diagnosis Onset Date Resolution Status Admit Date Cervical radiculopathy acute No vember 2023 2:53pm Cervical radiculopathy acute De cember 2023 8:25am [facility] Work Phone: 1(340) 699-224811-11-2024 Evaluation note* Diagnosis Onset Date Resolution Status Admit Date Cervical radiculopathy acute No vember 2023 2:53pm Cervical radiculopathy acute De cember 2023 8:25am Cervical radiculopathy acute Ja [facility] 2024 1:13pm [facility] Work Phone: 1(111) 777-407110-30-2024 History of Present illness Narrative* Wendy Colon MA - 09/04/2024 3:15 PM EDT Images from the original note were not included. Dipti Acevedo, DO Obstetrics and Gynecology Mary Leal 1970 09/04/24 [id number] Exam Chief Complaint Patient presents with Follow-up [...] Current Outpatient Medications Medication Sig Dispense Refill Nimolirupal Maintena 300 [...] reconstruction FOOT TENDON SURGERY 11/13/2023 HYSTERECTOMY 2015 [facility] BS INTRAUTERINE DEVICE INSERTION 2013 [...] anicteric. EARS: no obvious hearing deficit. 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 documented in this encounterCrossroads Regional Medical [id number] History of Present illness Narrative* Ron King [...] tonsil hypertrophy Major depressive disorder, recurrent, moderate ([facility]) Nasal congestion Nausea Partial nontraumatic rupture of right rotator cuff Poor urinary stream Stress incontinence in female Unspecified inflammatory spondylopathy, cervical region ([facility]) Urinary urgency Wheezing Pain due to internal orthopedic prosthetic devices, implants and grafts, initial encounter ([facility]) Belching Past Medical History: Past Medical History: Diagnosis Date ADHD (attention deficit hyperactivity disorder) ([facility]) 1994 Asthma ([facility]) Basal cell carcinoma right chest Colon polyp Compressed cervical disc Cystocele 2021 Depression ([facility]) Difficulty walking 05/12/23 Eczema 2022 Endometriosis 2015 Fissure, anal Gastroparesis GERD (gastroesophageal reflux disease) 1994 Hormone disorder 2019 Hypertension ([facility]) 1999 Migraine ([facility]) OCD (obsessive compulsive disorder) ([facility]) Panic attack ([facility]) 04/28 Rectocele 2021 RLS [...] reconstruction FOOT TENDON SURGERY 11/13/2023 HYSTERECTOMY 2014 [facility] BS INTRAUTERINE DEVICE INSERTION 2013 [...] 10 min Stress: Stress Concern Present (05/01/2024) [place] of Occupational Health - Occupational Stress Questionnaire Feeling of Stress : Rather much Social Connections: Socially Isolated (05/01/2024) Social Connection and Isolation Panel [NHANES] Frequency of Communication with Friends and Family: More than three times a week Frequency of Social Gatherings with Friends and Family: More than three times a week Attends Anabaptist Services: Never Active Member of Clubs or Organizations: No Attends Club or Organization Meetings: Never Marital Status: Intimate Partner Violence: Not At Risk (06/23/2023) Received from [employer], [facility] Safety Threatened: Not on file Insulted: Not [...] (around 10/02/2024) for PRN. documented in this encounterCrossroads Regional Medical [id number] History of Present illness Narrative* Tania Javed 08/07/2024 9:00 AM EDT This MA verified [...] subtotal colectomy, who presents today to the [facility] for chronic abdominal pain, [...] four hours. Ms. Leal sees a local night auditor. She is worried about parasites with the loose stools, and SIBOdue to bloating. Ms. Leal has a history of severe reflux esophagitis but is not currently taking PPI she stopped due to concerns of side effects. She is taking an over the counter supplement root extract recommended by her local night auditor. She does not take a multivitamin. Last [...] with food. She feels better at this environmental engineer scientist weight and is afraid to eat for weight gain, not due to her symptoms. She is not currently following with night auditor or counselor and is open to both. [...] subtotal colectomy, who presents today to the [facility] for chronic abdominal pain, [...] & Nutrition Department of Internal Medicine [facility] Pager [phone] or Epic Chat with questions * Padmaja [...] Negative stool O&P. Continue Omeprazole daily for mcfp due to hx of grade D esophagitis, erosive gastropathy and gastroparesis. Refer to nutrition and psychology (fear of eating). Continue current medications. Based on clinical course, may repeat gastric emptying test and refer to advanced endoscopy for evaluation of G-POEM if clinically indicated. documented in this encounterCherrington Hospital10-02-2024 Instructions* Patient Instructions* Radha Cardenas MD - 08/07/2024 9:00 AM EDT It was a pleasure to see you today. The following are your instructions: - referral to GI specific vacuum repairer, will request video/telephone visit for you - referral to psychology to help you heal your relationship with food - continue omeprazole, vitamin D, and iron repletion - repeat H2 breath testing as able If you had labs drawn, I or my team will either call you, send you a BrandShield message, or mail you aletter with the results of your tests within 1-2 weeks after you have completed your tests. If you do not hear from our office, please call the clinic to receive your results at [phone]. As a reminder, [facility] [employer] should not be used as a form of communication that replaces an office visit. It can be used for reminders and clarifications If you need to fax old records in, please fax to [phone]. If you have any concerning symptoms, please seek immediate medical attention. documented in this [facility]09-26-2024 History of Present illness Narrative* Eliceo Gómez, - 08/01/2024 3:20 PM EDT Images from [...] cystitis Genitourinary syndrome of menopause Incontinence Migraine ([facility]) CHUCKIE (obstructive sleep apnea) [...] after colorectal surgery JOLEEN (generalized anxiety disorder) ([facility]) Headache History of 2019 novel coronavirus disease (COVID-19) Impingement syndrome of right shoulder Increased frequency of urination Lingual tonsil hypertrophy Major depressive disorder, recurrent, moderate (HCC) ([facility]) Nasal congestion Nausea Partial nontraumatic rupture of right rotator cuff Poor urinary stream Stress incontinence in female Unspecified inflammatory spondylopathy, cervical region (CMS/HCC) Urinary urgency Wheezing Pain due to internal orthopedic prosthetic devices, implants and grafts, initial encounter ([facility]) Belching Past Medical History: Past Medical History: Diagnosis Date ADHD (attention deficit hyperactivity disorder) (CMS/HCC) 1994 Asthma (CMS/HCC) Basal cell carcinoma right chest Colon polyp Compressed cervical disc Cystocele 2021 Depression (CMS/HCC) Difficulty walking 05/12/23 Eczema 2022 Endometriosis 2015 Fissure, anal Gastroparesis GERD (gastroesophageal reflux disease) 1995 Hormone disorder 2019 Hypertension (CMS/HCC) 2000 Migraine (CMS/HCC) OCD (obsessive compulsive disorder) ([facility]) Panic attack (CMS/HCC) 04/28 Rectocele [...] 10 min Stress: Stress Concern Present (05/01/2024) [place] of Occupational Health - Occupational Stress Questionnaire Feeling of Stress : Rather much Social Connections: Socially Isolated (05/01/2024) Social Connection and Isolation Panel [NHANES] Frequency of Communication with Friends and Family: More than three times a week Frequency of Social Gatherings with Friends and Family: More than three times a week Attends Anabaptist Services: Never Active Member of Clubs or Organizations: No Attends Club or Organization Meetings: Never Marital Status: Intimate Partner Violence: Not At Risk (06/23/2023) Received from [employer], [employer] [facility] Safety Threatened: Not on file Insulted: [...] and/or persist despite treatment. - nystatin (Mycostatin) [id number] UNIT/ML suspension; Take 5 mL (500,000 Units) [...] mouth every other day, Disp: , Rfl: Hbgzqggiufk-Tmovbbvxi-Jjjwyq 100-62.5-25 MCG/ACT aerosol powder , Inhale 1 [...] 90 tablet, Rfl: 1 documented in this encounterCrossroads Regional Medical [id number] NoteSLEEP/NEUROLOGY CLINIC FOLLOW-UP EVALUATION Date of Evaluation: [...] She eventually was evaluated at [facility] with Dr. Sherman and had [...] was also evaluated at sleep medicine at [facility], and saw Dr. Yoni Tuttle on 10/14/2022. She was subsequently started on auto-CPAP 5-15 cm H2O with nasal mask in December 2022. She uses the CPAP for about a week, and had severe intolerance and felt suffocated. She had severe pressure and mask intolerance, and despite changes in masks and pressure settings she was not able to tolera (more content not included)...[facility] 07-11-2024 History of Present illness Narrative* [...] disorder) without hyperactivity Allergic rhinitis Anxiety Asthma ([facility]) Atopic dermatitis Basal cell carcinoma (BCC) of chest Bipolar affective disorder, most recent episode mixed ([facility]) Degenerative disc disease, cervical Facet arthritis of cervical region Gastro-esophageal reflux disease without esophagitis Gastroparesis Hot flashes due to menopause Hyperlipidemia (CMS/HCC) Hypertension ([facility]) Insomnia Mood swing Restless legs syndrome Tarsal tunnel syndrome Tension headache Vitamin D deficiency Arthritis B12 deficiency Bipolar 1 disorder (CMS/HCC) Chronic cluster headache, not intractable Chronic idiopathic constipation Chronic interstitial cystitis Genitourinary syndrome of menopause Incontinence Migraine ([facility]) CHUCKIE (obstructive sleep apnea) [...] after colorectal surgery JOLEEN (generalized anxiety disorder) ([facility]) Headache History of 2019 novel coronavirus disease (COVID-19) Impingement syndrome of right shoulder Increased frequency of urination Lingual tonsil hypertrophy Major depressive disorder, recurrent, moderate (HCC) ([facility]) Nasal congestion Nausea Partial nontraumatic rupture of right rotator cuff Poor urinary stream Stress incontinence in female Unspecified inflammatory spondylopathy, cervical region ([facility]) Urinary urgency Wheezing Pain due to internal orthopedic prosthetic devices, implants and grafts, initial encounter ([facility]) [facility] Past Medical History: Past Medical History: Diagnosis Date ADHD (attention deficit hyperactivity disorder) ([facility]) 1994 Asthma ([facility]) Basal cell carcinoma right chest Colon polyp Compressed cervical disc Cystocele 2021 Depression ([facility]) Difficulty walking 05/12/23 Eczema 2022 Endometriosis 2015 Fissure, anal Gastroparesis GERD (gastroesophageal reflux disease) 1995 Hormone disorder 2019 Hypertension ([facility]) 2000 Migraine ([facility]) OCD (obsessive compulsive disorder) ([facility]) Panic attack ([facility]) 04/28 Rectocele 2021 RLS [...] 10 min Stress: Stress Concern Present (05/01/2024) [place] of Occupational Health - Occupational Stress Questionnaire Feeling of Stress : Rather much Social Connections: Socially Isolated (05/01/2024) Social Connection and Isolation Panel [NHANES] Frequency of Communication with Friends and Family: More than three times a week Frequency of Social Gatherings with Friends and Family: More than three times a week Attends Anabaptist Services: Never Active Member of Clubs or Organizations: No Attends Club or Organization Meetings: Never Marital Status: Intimate Partner Violence: Not At Risk (06/23/2023) Received from Replaced by [facility] Safety Threatened: Not on file Insulted: [...] SM ANTIBODY <1.0 NEG <1.0 NEGATIVE AI SM/SEARCH COORDINATOR ANTIBODY <1.0 NEG <1.0 NEGATIVE AI SJOGREN'S [...] (four) hours if needed for wheezing - Erzgyaaoalw-Ddypvazte-Pvtqsl 100-62.5-25 MCG/ACT aerosol powder ; Inhale 1 [...] mouth every other day, Disp: , Rfl: Dlhqplhercx-Hdumrfhjt-Ywdqia (Trelegy Ellipta) 100-62.5-25 MCG/ACT aerosol powder , Inhale, Disp: ,Rfl: Sparyevqqfy-Qrqgnxkas-Gypbnb 100-62.5-25 MCG/ACT aerosol powder , Inhale 1 [...] Disp: 30 tablet, Rfl: 11 nystatin (Mycostatin) [id number] UNIT/ML suspension, Take 5 mL by mouth [...] Daily, Disp: , Rfl: documented in this encounterCrossroads Regional Medical [id number] History of Present illness Narrative* Kathie Amezquita, ROGELIOM - 06/27/2024 9:45 AM EDT Images from the original note were not included. HPI: Mary Zoya Leal presents today to obtain orthotics. She [...] and follow-up if needed. documented in this encounterMeredith [place]ille [id number] Telephone encounter Note* Telephone Encounter - Serenity Joseph MA - 06/12/2024 2:19 PM EDT LDH=11/30/22 MEREDITH=10/11/22 Patient will need a follow up appointment For future refills [facility]08-07-2024 Miscellaneous Notes* Telephone Encounter - Serenity Joseph MA - 06/12/2024 2:19 PM EDT LDH=11/30/22 MEREDITH=10/11/22 Patient will need a follow up appointment For future refills [facility] Miscellaneous Notes* Telephone Encounter - Sandip [...] for her. Patient also is switching pharmacies: [facility] in [address] [place] [phone] * Telephone Encounter - Adriana Barkley RN [...] and maintenance dose. Prior auth submitted to [facility] via [facility]. [place]: [id number] documented in this encounterAC[facility] Telephone encounter Note* Telephone Encounter - Sandip [...] Patient also is switching pharmacies: [facility] in [address] [place] [address] [facility]07-09-2024 Telephone encounter Note* Telephone Encounter - Adriana Barkley RN - 05/14/2024 8:15 AM EDT Added new pharmacy to patient's chart. Please advise on medication changes. [facility]07-09-2024 Telephone encounter Note* Telephone Encounter - Pauline Christensen MD - 05/14/2024 8:15 AM EDT Yes, ok to switch to Emgalty- she will need loading dose of 120 mg x 2 injections = 240 mg for the first month, and afterwards 120 mg Q4 weeks maintenance. Thanks [facility]07-09-2024 Telephone encounter Note* Telephone Encounter - Adriana Barkley RN - 05/14/2024 8:15 AM EDT Orders placed for review and signature by physician for Emgality loading and maintenance dose. Prior auth submitted to [facility] via [facility]. [place]: [id number] [facility] [employer] [id number] NoteQuality of life Answer each question by shading in the [place] completely. Choose only one answer for each [...] 70 75 80 85 90 95 100 [facility]06-[facility]-2024 NoteEpworth Sleepiness Scale Please rate the following [...] Problems: There are no active Hospital Problems. [facility]06-12-2024 Note Attestation signed by Grant Biswas, PhD at 04/18/2024 10:57 AM I have read and agree with the transformer maker's documentation and treatment summary. Please note there [...] PhD (electronically signed on 04/17/2024 at 8:49 AM)[facility]06-07-2024 Nurse Note* Nursing Notes - Stcaie Johns RN - 04/12/2024 12:45 PM EDT Dilated LES to 20mm with balloon, held for [address] Franco [facility]06-07-2024 Miscellaneous Notes* Nursing Notes - Stacie [...] and monitoring per anesthesia. documented in this encounterCherrington Hospital06-07-2024 Nurse Note* Nursing Notes - Stacie Johns RN - 04/12/2024 12:41 PM EDT Dilated pylorus to 20mm with balloon, held for [address] Franco. [facility]06-07-2024 History and physical note* Milagros Franco MD, PhD - 04/12/2024 12:30 PM EDT ENDOSCOPIC PREPROCEDURE HISTORY AND PHYSICAL HISTORY OF PRESENT ILLNESS: Mary Leal is a 53 y.o. female seen in the pre-procedure area at [facility]. The indication for endoscopic evaluation includes: [place] grade D esophagitis Early satiety Unintentional weight [...] Anesthesia Care. Milagros Franco MD, PhD [facility] Work Phone: 1(653) 713-475306-07-2024 History and physical note* Milagros Franco MD, PhD - 04/12/2024 12:30 PM EDT ENDOSCOPIC PREPROCEDURE HISTORY AND PHYSICAL HISTORY OF PRESENT ILLNESS: Mary Leal is a 53 y.o. female seen in the pre-procedure area at [facility]. The indication for endoscopic evaluation includes: [place] grade D esophagitis Early satiety Unintentional weight [...] Franco MD, PhD documented in this encounterOSU [facility]06-[facility] Nurse Note* Sae Kaur RN - 04/12/2024 12:30 PM EDT 1316- Family/hazmat cdl driver arrived to recovery bay. RN provided and reviewed discharge instructions to patient and daughter. Verbalized understanding. All questions answered. 1326- Patient ambulated off ASC unit independently with hazmat cdl driver. documented in this encounterOSU [facility]06[facility] Nurse Surgical operation note* Sae Kaur RN - 04/12/2024 12:30 PM EDT 1316- Family/hazmat cdl driver arrived to recovery bay. RN provided and reviewed discharge instructions to patient and daughter. Verbalized understanding. All questions answered. 1326- Patient ambulated off ASC unit independently with hazmat cdl driver. [facility]06-07-2024 Nurse Note* Nursing Notes - Stacie Johns RN - 04/12/2024 12:12 PM EDT Sedation, vital signs, airway, and monitoring per anesthesia. [facility]05-29-2024 Note Attestation signed by Pauline Christensen MD at 04/03/2024 4:16 PM I personally saw and examined the patient on the same date of service as resident/fellow Dr. Dumont. I discussed the findings and therapeutic plan with the resident/fellow . I agree with the documentation, except for any edits/updates below. Teaching Physician's Revisions: None Pauline Christensen MD. Exec. Creative Director of Neurology and Sleep Medicine [facility] SLEEP/NEUROLOGY CLINIC FOLLOW-UP EVALUATION Date [...] She eventually was evaluated at [facility] [place] with Dr. Sherman and had sleep study [...] we referred her to (more content not included)...[facility] 03-14-2024 Telephone encounter Note* Telephone Encounter - Jacquelin Lowery, MAKI - 03/14/2024 9:56 AM EDT 02/27/24 OV [...] Rx has been sent. Jacquelin Lowery RN [facility]05-09-2024 Miscellaneous Notes* Telephone Encounter - Jacquelin [...] sent. Jacquelin Lowery RN documented in this encounterDetwiler [facility] Hospital2024 NoteHNO ID: [id number] Author: FLOWER LOPEZ APRN.MAINTENANCE JOB TITLES Service: ? Author Type: Nurse Practitioner Type: [...] intermittently- somewhat improved. She has worked with Mel[employer] rep re: interstim setting, now on program [...] you received about pain medications helpful? Yes Presiding Steward offered:Patient declines OBJECTIVE: BP 146/93 Pulse 62 [...] notes 65% improvement s/p (more content not included)...[facility]2024 History of Present illness Narrative* Flower Lopez APRN.MAINTENANCE JOB TITLES - 02/27/2024 10:00 AM EDT Female Pelvic [...] intermittently- somewhat improved. She has worked with [employer] rep re: interstim setting, now on program [...] you received about pain medications helpful? Yes Presiding Steward offered:Patient declines OBJECTIVE: BP 146/93 Pulse 62 [...] understanding. Flower Lopez APRN.KWESI documented in this encounterDetwiler [facility] Hospital04-16-2024 Miscellaneous Notes* Telephone Encounter - Denisse [...] 20, 2024 7:32 AM documented in this encounterDetwiler [facility] Hospital04-07-2024 NoteHNO ID: [id number] Author: LISSA DOYLE APRN.CNP Service: ? Author Type: Nurse Practitioner Type: Progress Notes Filed: 02/11/2024 15:16 Note Text: Visit cancelled. Patient checked into [employer] care online system for My ongoing yeast infection. I've tried 3 Diflucan. . Connected to visit, advised PCP or local Express/Urgent Care in person evaluation. Patient verbalized understanding and comfortable with plan. Nontoxic appearance. Lissa Doyle APRN.CNPUniversity [facility]als [facility]04-07-2024 History of Present illness Narrative* Lissa Doyle APRN.CNP - 02/11/2024 3:14 PM EDT Visit cancelled. Patient checked into [employer] care online system for My ongoing yeast infection. I've tried 3 Diflucan. . Connected to visit, advised PCP or local Express/Urgent Care in person evaluation. Patient verbalized understanding and comfortable with plan. Nontoxic appearance. Lissa Doyle APRN.MAINTENANCE JOB TITLES documented in this encounterDetwiler Memorial Hospital04-03-2024 NoteSLEEP/NEUROLOGY CLINIC FOLLOW-UP EVALUATION Date of [...] a second opinion from [facility] at [facility], and saw Dr. Yoni Tuttle on [...] Restless legs symptoms started in 2019 and are very well controlled with ropinirole [...] She eventually was evaluated at [facility] sleep center with Dr. Sherman and had [...] would like to av (more content not included)...[facility]03-23-2024 Miscellaneous Notes* Telephone Encounter - Radha Dunham MD - 01/27/2024 10:44 AM EDT Pony Roll Finisher Resident Telephone Encounter 01/27/2024 10:44 AM Call [...] pain. Informed patient she can call her [employer] rep Monday. Will send telephone encounter to [...] Discussed with Dr. Mullins, Urogyn fellow physician front office assistant. Radha Dunham MD Obstetrics and Gynecology, PGY1 documented in this encounterDetwiler [facility] Hospital03-21-2024 History and physical note * Max Marroquin PA-C - 01/25/2024 9:00 AM EDT PREANESTHESIA CONSULT CLINIC TELEHEALTH VISIT SERVICE DATE: 01/25/2024 SERVICE TIME: 9:02 AM Patient has been identified by name and date of : Yes Reason for contact: PACC visit Accompanied by: Self This is a virtual visit using Brand[employer] Zoom Video Visit. It required patient- provider interaction for the medical decision making as documented below. I have communicated my name and active licensure. The patient's identity and physical location wereverified at the time of this visit. Either the patient or their legal nutrition representative has been informed of the risks [...] using inspire to get activated 02/07/2024 ) [id number] Score: Age: <65 Sex: female CHF history: No Hypertension history: Yes Stroke/TIA/thromboembolism history: No Vascular disease history: No Diabetes history: No [id number] Score: 2 ANESTHESIA FINDINGS: Intubation History: No [...] the AM and 2 mg PM Yes eqbnuczlogp-ajatozubs-vothfufy (TRELEGY ELLIPTA) 100-62.5-25 mcg Inhale 1 Puff as instructed once daily. Yes No medication comments found. ALLERGIES Allergen Reactions Risperidone Intolerance Breast discharge Poison Brenda Extract Rash Covid Immunization Dates Overdue - Covid-19 Vaccine ( season) Overdue since 07/07/2023 11/24/2021 Imm Admin: [...] fevers. Neuro: No history of TIA's, stroke, BIOPSYCHOLOGIST tumor, impaired sensorium, hemiplegia, paraplegia or quadraplegia. No neurological symptoms or problems. Respiratory: CHUCKIE and asthma Negative for Bronchitis, COPD, Pneumonia within 6 weeks (date), URI < 2 weeks Negative for cough, wheezing or shortness of breath. Negative for hemoptysis. Cardiovascular: HTN Negative for Recent NE, CAD, CHF Negative for chest pain, orthopnea, [...] 01/25/2024 TIME: 9:02 AM documented in this encounterDetwiler [facility] Hospital03-19-2024 Instructions* Patient Instructions* Max Marroquin PA-C - 01/23/2024 3:50 PM EDT PATIENT PREOPERATIVE INSTRUCTIONS Pam Wang MD has scheduled you for your procedure at this surgery center: [facility] [place] Scheduling Office: [phone] [address] [place] [address]. Arrival Time for Surgery: - To obtain your arrival time for surgery, call your physician's office the day before your surgery. - If your surgery is scheduled for Monday, call the Monday before. Your surgeon s space scheduler will tell you what time to call the office. - If you have not reached the departmental space scheduler by 5 P.M., call [phone] after 5 P.M. the day before your [...] Procedures: - YOU MUST HAVE A RESPONSIBLE BONE CHAR KILN OPERATOR TAKE YOU HOME. A DIGITAL STRATEGY DIRECTOR OR COOKER HELPER CANNOT BE MADE A RESPONSIBLE BONE CHAR KILN OPERATOR. - We recommend that a responsible person stays with you overnight to take care of you. - You cannot stay in a hotel alone after outpatient surgery. You will not be permitted to have yoursurgery, if you do not have someone to take care of you. If you already have an Advance Directive, please fax a copy to [phone] or email to for it to be [...] day. Max Marroquin PA-C documented in this encounterDetwiler Memorial Hospital03-18-2024 NoteHNO ID: [id number] Author: LEV THOMPSON LPN Service: ? Author [...] patient have an advanced directive: No Does [facility] have a copy of the patient's [...] prescribed by anesthesia, internal medicine, surgeon, or DURABLE MEDICAL EQUIPMENT REPAIRER Stop NSAIDs, Aspirin (ASA), vitamins, herbal supplements, [...] jewelry, body piercing, makeup, contacts, lotions, nail nigerien on fingers, or anything in hair on arrival to surgery Wear low healed shoes and loose fitting clothing Leave all valuables at home or with a family member Directions to [facility] Parking/parking validation on the day prior [...] if after hours patient instructed to call kiln transfer operator and ask for front office assistant costumed character entertainer resident. DENISA program offered to patient: Yes [...] None Educator: Lev Thompson LPN [facility]03[facility] History of Present illness Narrative* [...] patient have an advanced directive: No Does [facility] have a copy of the patient's [...] prescribed by anesthesia, internal medicine, surgeon, or DURABLE MEDICAL EQUIPMENT REPAIRER Stop NSAIDs, Aspirin (ASA), vitamins, herbal supplements, [...] jewelry, body piercing, makeup, contacts, lotions, nail nigerien on fingers, or anything in hair on arrival to surgery Wear low healed shoes and loose fitting clothing Leave all valuables at home or with a family member Directions to [facility] Parking/parking validation on the day prior [...] patient, if after hours patientinstructed to call kiln transfer operator and ask for front office assistant costumed character entertainer resident. DENISA program offered to patient: Yes [...] None Educator: Lev Thompson LPN [facility] documented in this encounterDetwiler Memorial Hospital03-18-2024 Instructions* Patient Instructions* Lev Thompson LPN - 01/22/2024 11:22 AM EDT UROGYNECOLOGY PHYSICIAN CONTACT INFORMATION During business hours, these numbers connect to your doctor s office. During the evening and weekends, these numbers will connect you to the answering service to speak with the doctor front office assistant. Dr. Pam Wang After hours phone number: or toll free Ask the kiln transfer operator to page the 'costumed character entertainer front office assistant.' Surgery Scheduling Office: Call the day before [...] vitamin E, herbal medications, diet pills, and hqvq-gpv-xopidoq medications. Tylenol (acetaminophen) is okay. I will not wear jewelry, body piercing(s), makeup, nail nigerien, hairpins, or contacts on the day ofsurgery. [...] my surgeon. Discuss medication changes with your wax pourer or primary care physician as well. If I stopped taking my blood-thinning medication, I will ask the surgeon when to resume taking it. If I am an outpatient, a responsible person will drive me home and it was suggested that someone stay with me for 24 hours. I understand that a gas combustion engineer or cabdriver is NOT a responsible caregiver. [...] for surgery, I must call my surgical coordinator after 2pm the day before surgery. PREOP INSTRUCTIONS THE DAY OF SURGERY/CHECK IN Report to DESK J1-9 for surgery. A map is located in Your Surgical Guide Book. The online version of the surgical guide book can be found at: [email or web address] The address is [address] [place] [address] INFECTION PREVENTION Please notify your doctor if [...] Your Surgical Guide Book for more information. [facility] TEAM At the [facility], we have a multidisciplinary team of caregivers that includes fellows, residents, nurse practitioners, physician assistants, clinical nurse specialists, nurses, medical assistants, patient care nursing assistants, social workers, case coordinator and many others. We all have different [...] MyChart for post-surgery concerns. documented in this encounterDetwiler Memorial Hospital03-06-2024 History of Present illness Narrative* Cullen Dawkins MD - 01/10/2024 12:45 PM EST [facility] [address] [facility] [id number] SUBJECTIVE: Patient ID (1970): Mary Leal is [...] carcinoma (BCC) of chest 04/04/2023 Bipolar disorder ([facility]) Chronic interstitial cystitis 04/06/2023 Chronic sinusitis 07/07/2022 [...] 03/20/2020 Performed by Alberto Solis MD at [facility] ENDOSCOPY EGD, DILATATION N/A 09/25/2020 Performed by Alberto Solis MD at [facility] ENDOSCOPY ENDOSCOPIC DIAGNOSTIC DRUG INDUCED SLEEP Bilateral 09/19/2023 Performed by Cullen Dawkins MD at [facility] FOOT SURGERY 06/25/2020 left foot surgery FOOT SURGERY Right 10/2022 and 05/2023 HYSTERECTOMY 2015 LASER LINGUAL TONISILLECTOMY Circumferential 07/08/2021 Performed by Alexei Avila MD PhD at [facility] MRI FOOT LEFT NECK SURGERY 2017 PLANTAR FASCIECTOMY RELEASE PHARYNGEAL SCAR CPT 67370 Circumferential 07/08/2021 Performed by Alexei Avila MD [...] in the morning. Indications: gastroesophageal reflux disease. aiwcrojaqex-ndbpvnheb-cpodoprl (TRELEGY ELLIPTA) 100-62.5-25 mcg blister with device [...] mg 2.5 mg nebulization PRN Gwendolyn Stroud APRN-KWESI REVIEW OF SYSTEMS: Review [...] to ensure the accuracy of this automated puppy trainer, some errors in puppy trainer may have occurred. Iam Siddiqi 01/10/24 0753 documented in this encounterSouthwestern Vermont Medical CenterMedica Munising Memorial [id number] Instructions* Patient Instructions* Cullen Dawkins MD - [...] care. The instructions to gain access to [employer] are at the bottom of this summary. If you are not signed up for access to MY CHART and have not received notification of ANY test result within 7 days, please call [phone] to leave a request for your results. [...] Ultrasound, MRI or PET scan, please call [facility] Scheduling at [phone]. If you need to be scheduled for surgery, please call Aiden Augustin Surgery Coordinator at [phone], or Lazara at [phone] or our main number [phone] if you have not received a return [...] (and medications that contain aspirin): Many non-prescription (tcpf-ujb-cqxwntj or OTC) medications contain aspirin. If you are unsure whether a medication you take has aspirin, please ask your pharmacist or your surgeon's office. You must ask your surgical team if they want you to continuetaking, or stop taking aspirin before your procedure. Medications containing aspirin that should be stopped 7 days before surgery: Juliet-Spencer Anacin Aspirin Fiorinal Ascriptin Carlos Bufferin Lortab [...] L-carnosine Licorice Kava kava Milk thistle Multivitamin Austin-3 Resveratrol Skullcap Michael's wort Vitamin E Adipex (phentermine) Glenn (orlistat) Hydroxycut Garcinia Cambogia Raspberry Ketones Uveypyaf-F-15 should be stopped 14 days before surgery You will receive specific instructions regarding your insulin and anti-coagulant/anti-platelet medications (if applicable). documented in this [facility]02-21-2024 Miscellaneous Notes* Telephone Encounter - Aiden Augustin - 12/27/2023 10:12 AM EST PATIENT NOTIFIED WITH SURGERY TIME OF 11:00. TOLD TO ARRIVE 2 HOURS PRIOR. documented in this [facility]02-21-2024 Telephone encounter Note* Telephone Encounter - Aiden Augustin - 12/27/2023 10:12 AM EST PATIENT NOTIFIED WITH SURGERY TIME OF 11:00. TOLD TO ARRIVE 2 HOURS PRIOR. [facility]02-19-2024 Miscellaneous Notes* Telephone Encounter - Stacie Gonzalez RN - 12/25/2023 3:02 PM EST See MC message A message has been routed to the provider Closing Stacie Gonzalez RN * [facility] 2:14 PM EST Reason for [...] distance health visit in this department: 10/25/2021 Organizational Effectiveness Director, Nurse Next visit in this department: 01/25/2024 Electronically signed [facility] at 12/25/2023 2:54 PM EST documented in this encounterDetwiler Memorial Hospital02-14-2024 History and physical note * Vilma Sutton, 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 CONSULTANT-MAINTENANCE JOB TITLES - 12/20/2023 11:45 AM EST PRE-ADMISSION TESTING HISTORY AND PHYSICAL EXAM DATE: 12/20/23 PCP: ELICEO GÓMEZ JR, DO CHIEF COMPLAINT: CHUCKIE (obstructive sleep apnea) HISTORY OF PRESENT ILLNESS: Mary Leal, a 53 y.o. White or female, presents to [facility] for a pre- surgical H&P for [...] carcinoma (BCC) of chest 04/04/2023 Bipolar disorder ([facility]) Chronic interstitial cystitis 04/06/2023 Chronic sinusitis 07/07/2022 [...] 03/20/2020 Performed by Alberto Solis MD at [facility] ENDOSCOPY EGD, DILATATION N/A 09/25/2020 Performed by Alberto Solis MD at [facility] ENDOSCOPY ENDOSCOPIC DIAGNOSTIC DRUG INDUCED SLEEP Bilateral 09/19/2023 Performed by Cullen Dawkins MD at [facility] FOOT SURGERY 06/25/2020 left foot surgery FOOT SURGERY Right 10/2022 and 05/2023 HYSTERECTOMY 2015 LASER LINGUAL TONISILLECTOMY Circumferential 07/08/2021 Performed by Alexei Avila MD PhD at [facility] MRI FOOT LEFT NECK SURGERY 2017 PLANTAR FASCIECTOMY RELEASE PHARYNGEAL SCAR CPT 63767 Circumferential 07/08/2021 Performed by Alexei Avila MD [...] Indications: gastroesophageal reflux disease., Disp: , Rfl: mqgpozbjftz-lfhyolslf-mvvszuya (TRELEGY ELLIPTA) 100-62.5-25 mcg blister with device, [...] 2.5 mg, nebulization, PRN, Gwendolyn Nicole Stroud, 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 CONSULTANT-MAINTENANCE JOB TITLES REVIEW OF SYSTEMS: Review of Systems Constitutional: [...] the most recent lab values available in [facility] at the time ofthe office visit and additional labs may have been drawn since that time. ASSESSMENT / DIAGNOSIS: CHUCKIE (obstructive sleep apnea) PLAN: Mary Leal is scheduled for Insertion Stimulator Nerve Hypoglossal - Right with Dr. Dawkins on01/02/2024. STELLA Duron 12/20/23 1240 [facility]02-14-2024 History and physical note* STELLA Duron - 12/20/2023 11:45 AM EST PRE-ADMISSION TESTING HISTORY AND PHYSICAL EXAM DATE: 12/20/23 PCP: ELICEO GÓMEZ JR, DO CHIEF COMPLAINT: CHUCKIE (obstructive sleep apnea) HISTORY OF PRESENT ILLNESS: Mary Leal, a 53 y.o. White or female, presents to [facility] for a pre- surgical H&P for [...] carcinoma (BCC) of chest 04/04/2023 Bipolar disorder ([facility]) Chronic interstitial cystitis 04/06/2023 Chronic sinusitis 07/07/2022 [...] 03/20/2020 Performed by Alberto Solis MD at [facility] ENDOSCOPY EGD, DILATATION N/A 09/25/2020 Performed by Alberto Solis MD at [facility] ENDOSCOPY ENDOSCOPIC DIAGNOSTIC DRUG INDUCED SLEEP Bilateral 09/19/2023 Performed by Cullen Dawkins MD at [facility] FOOT SURGERY 06/25/2020 left foot surgery FOOT SURGERY Right 10/2022 and 05/2023 HYSTERECTOMY 2015 LASER LINGUAL TONISILLECTOMY Circumferential 07/08/2021 Performed by Alexei Avila MD PhD at [facility] MRI FOOT LEFT NECK SURGERY 2017 PLANTAR FASCIECTOMY RELEASE PHARYNGEAL SCAR CPT 91973 Circumferential 07/08/2021 Performed by Alexei Avila MD [...] Indications: gastroesophageal reflux disease., Disp: , Rfl: wcbbumaxtpw-pqqpbsrrp-okoinbxt (TRELEGY ELLIPTA) 100-62.5-25 mcg blister with device, Inhale 1 puffin the morning., Disp: 60 each, Rfl: 5 fremanezumab-vfrm ([employer] Otherland GroupOVY AUTOINJECTOR) 225 mg/1.5 mL, inject 1 AND [...] 2.5 mg, nebulization, PRN, Gwendolyn Nicole Stroud, 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 CONSULTANT-MAINTENANCE JOB TITLES REVIEW OF SYSTEMS: Review of Systems Constitutional: [...] the most recent lab values available in [facility] at the time ofthe office visit and additional labs may have been drawn since that time. ASSESSMENT / DIAGNOSIS: CHUCKIE (obstructive sleep apnea) PLAN: Mary Leal is scheduled for Insertion Stimulator Nerve Hypoglossal - Right with Dr. Dawkins on01/02/2024. STELLA Duron 12/20/23 1240 documented in this encounterSouthwestern Vermont Medical CenterRegenaStem [id number] Instructions* Patient Instructions* Earlene Whalen RN - 12/20/2023 11:45 AM EST Your surgery/procedure is scheduled at [facility] on 01/02/2024 Arrival Time Surgeon will call [facility] Address: [address] [place] [address], [address] [place] [address] in the Emergency Center Parking lot. Report to the front office assistant in the Emergency/Surgery Registration lobby of the hospital. Please call Pre-Admission Clinic at [phone] if you have any questions prior to surgery. For questions the morning of surgery, please call the Pre-op Department at [phone]. Notify your SURGEON if you develop any [...] would like to schedule therapy at a [facility] facility, please call [phone] ([phone]). Do not use lotions, creams, powders, perfume, make up, cologne or after-shaves day of surgery. Remove ALL jewelry including wedding rings, body piercings, hair extensions that contain metal, nail nigerien, make-up, and contact lens. You may brush your teeth the morning of surgery, but do not swallow the water. Wear your dentures and partial plates to the hospital (no adhesive). Shower the night the before. If applicable, use the CHG (chlorhexidine gluconate) soap or wipes. Please be advised, [facility] has transitioned to a cashless [...] RIGHTS AND RESPONSIBILITIES As a patient at [facility], you have the right to: Receive medical care and be informed of who is taking care of you Be treated with dignity and respect Have a family member/nutrition representative of choice and your physician notified of your admission Receive information and actively participate in decisions about your care and treatment Refuse care, treatment and services Decide who may provide your support and speak for you Access mu-ism and spiritual services Participate in ethical issues [...] of hospital charges and payment methods Patient/patient nutrition representative responsibilities are to: Provide information about [...] surgery in clean clothes. documented in this encounterACMC Healthcare [facility]01-16-2024 NoteHNO ID: [id number] Author: PAM WANG MD Service: ? Author [...] ATTESTATION By signing my name below, Tri Beckwith, attest that this documentation has been prepared under the direction and in the presence of Dr. Pam Wang M.D. Electronically signed, Alex Encinas November 21, 2023 11:57 AM Provider Attestation: Pam Beckwith MD, personally performed the services described in this documentation. All medical record entries made by the kristaibadele were at my direction and in my presence. I have reviewed the chart and discharge instructions (if applicable) and agree that the record reflects my personal performance and is accurate and complete.[facility]01-03-2024 Miscellaneous Notes* Telephone Encounter - Emily Zamora - 11/08/2023 3:40 PM EST NURTEC PENDING WITH TEJADA [id number] documented in this encounterACMC Healthcare System [facility]01-03-2024 Telephone encounter Note* Telephone Encounter - Emily Zamora - 11/08/2023 3:40 PM EST NURTEC PENDING WITH TEJADA [id number] [facility]12-07-2023 NoteHNO ID: [id number] Author: Pam Wang MD Service: ? Author [...] Video-assisted cystourethroscopy was performed using a 19 Azeri 70 and 30 degree rigid cystoscope with [...] and urethra PLAN: See progress note from todayUniversity Hospitals Cleveland Medical Center12-05-2023 NoteHNO ID: [id number] Author: Pam Wang MD Service: ? Author [...] PFSH obtained by others. Pam Wang MD Presiding Steward offered: Patient declines. OBJECTIVE: BP 102/60 General: [...] would like to move forward with PNE. Melophone packet given to patient today to review. [...] which included preparing to see the patient, yqbo-cz-rpss patient care, completing clinical documentation, obtaining and/or reviewing separately obtained history, performing a medically appropriate examination, counseling and educating the patient/family/caregiver, and communicating with other HCP (more content not included)...[facility]11-27-2023 Miscellaneous Notes * Telephone Encounter [...] sickness that she had before going to [place]. She states that she was going to [...] 150 MG TABLET MEREDITH: 09/27/2023 Doris Arias APRN.[facility] ASSESSMENT: Mary Leal is a 53 [...] w/ Dr. Pam Wang documented in this encounterDetwiler Memorial Hospital11-22-2023 NoteHNO ID: [id number] Author: Doris Arias APRN.[facility] Service: ? Author Type: Nurse Practitioner [...] ache and some malodorous urine. Patient in [place], unable to come in for visit. Has [...] urination is normal and pressure with urinating SUPERVISOR FUR FLOOR WORKER: denies abnormal vaginal bleeding, no vaginal discharge [...] Making Level: 3 - Low Doris Arias APRN.[facility]11-22-2023 Miscellaneous Notes * Telephone Encounter - [...] which included preparing to see the patient, rywk-bb-kdfh patient care, completing clinical documentation, obtaining and/or [...] Office will call to schedule cystoscopy. Urogynecology [facility] provided: Pam Wang Staff Physician, Department of Urogynecology and Pelvic Floor Disorders Worsening frequency and urgency of urination. Is a urine culture indicated? Please review/advise Lex Vieyra RN documented in this encounterDetwiler Memorial Hospital11-06-2023 NoteHNO ID: [id number] Author: Jairon Lai MD Service: ? Author Type: Physician Type: Progress Notes Filed: 09/11/2023 1:18 PM Note Text: [facility] [...] bladder elevated Pdet to void lower flow [facility]23 NoteHNO ID: [id number] Author: Phil Beckford MD Service: ? Author [...] benefit from sling incision +/- discussion of [facility]10-07-2023 Emergency department Note* Avelino Scott RN - 08/12/2023 7:35 AM EDT Discharge, follow up, referral, and prescription information reviewed and explained; all questions and concerns addressed. Patient A/Ox3 in NAD, resp. easy unlabored upon discharge, escorted to exit by staff. [facility]10-07-2023 Emergency department Note* Avelino Scott RN [...] gastroparesis, gastroenteritis, acute cholecystitis, pancreatitis, less likely NE The patient's initial and delta troponin are negative. EKG does not demonstrate any ischemic changes. Low suspicion for NE. Her urinalysis is negative for UTI. Urine [...] follow-up. She was instructed to call her seals engraver and PCP to schedule follow-up appointments. She was instructed to return to the emergency department if she has any new or worsening symptoms. Patient agreeable plan of care. Return precautions discussed at bedside. Spoke with Dr. Salmon regarding patient. Physician to complete their own physical exam and evaluation. Collaboration performed between this SPRINKLER FITTER HELPER and physician regarding patient's plan of [...] following orders were created for panel order Linden Draw. Procedure Abnormality Status --------- ------ Gold Top[[id number]] Final result LIGHT BLUE TOP[[id number]] Final result Dark Green Top[[id number]] Final result Please view results for these [...] Skin PWD. NAD noted. [facility] Hospital Discharge instructions* Discharge Instructions* Lev [...] sent through Care Everywhere. * Abdominal Pain (Comoran Kittitian) documented in [facility]Res[facility] Emergency department Note* Monserrat Scales RN - 08/12/2023 7:05 AM EDT Report to Les GAMBINO [facility]10-07-2023 Physician Emergency department Note* Lev Ritter [...] gastroparesis, gastroenteritis, acute cholecystitis, pancreatitis, less likely NE The patient's initial and delta troponin are negative. EKG does not demonstrate any ischemic changes. Low suspicion for NE. Her urinalysis is negative for UTI. Urine [...] follow-up. She was instructed to call her seals engraver and PCP to schedule follow-up appointments. She was instructed to return to the emergency department if she has any new or worsening symptoms. Patient agreeable plan of care. Return precautions discussed at bedside. Spoke with Dr. Salmon regarding patient. Physician to complete their own physical exam and evaluation. Collaboration performed between this SPRINKLER FITTER HELPER and physician regarding patient's plan of [...] following orders were created for panel order Linden Draw. Procedure Abnormality Status --------- ------ Gold Top[[id number]] Final result LIGHT BLUE TOP[[id number]] Final result Dark Green Top[[id number]] Final result Please view results for these tests on the individual orders. GOLD TOP LIGHT BLUE TOP DARK GREEN TOP TROPONIN I Records reviewed: Urogynecology telemedicine visit 08/07/2023 ENT visit 07/11/2023 Family medicine visit 07/06/2023 Lev Ritter APRN CNP 08/12/23722 [facility]10-07-2023 Emergency department Note* Jaren Lopez RN - 08/12/2023 4:21 AM EDT Emily at bedside [facility]10-07-2023 Emergency department Triage note* Moisés Duke RN - 08/12/2023 12:24 AM EDT Ambulates to triage with C/O sudden epigastric gnawing, burning pain that woke her from sleep. Alsoreports wheezing. States nausea. Denies fever. Alert. Respirations easy and unlabored. Skin PWD. NAD noted. [facility]10-02-2023 NoteHNO ID: [id number] Author: Pam Wang MD Service: ? Author Type: Physician Type: Progress Notes Filed: 08/07/2023 3:46 PM Note Text: Virtual Female Pelvic Medicine AND Reconstructive Surgery Follow-Up TeleHealth - Follow-up Consultation Visit I have discussed the risks, benefits, and limitations of receiving care virtually with the patient. The patient expresses understanding and is willing to move forward. Mray Leal is a 53 year old female, [...] no Pain: no Abnormal Vaginal Discharge: no SUPERVISOR FUR FLOOR WORKER 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 She has no history of an abnormal mammogram with cysts on US LMP: No LMP recorded. Patient has had a hysterectomy.; Menopause 3 years ago; hysterectomy in 2015: Menstrual history: NA; Deliveries: I have confirmed and edited as necessary, the PFSH obtained by others. Pam Wang MD Presiding Steward offered: Patient declines. OBJECTIVE (Virtual) There were [...] which included preparing to see the patient, wlfp-sk-momm patient care, completing clinical documentation, obtaining and/or reviewing separately obtained history, counseling and educating the patient/family/caregiver, ordering medications, tests, or procedures, and communicating with other HCPs (not separately reported). Pam Wang, [facility]09-25-2023 NoteHNO ID: [id number] Author: Nelsy Chávez APRN.MAINTENANCE JOB TITLES Service: ? Author Type: Nurse Practitioner Type: [...] new Pain: no Abnormal Vaginal Discharge: no SUPERVISOR FUR FLOOR WORKER 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 She has no history of an abnormal mammogram with cysts on US LMP: No LMP recorded. Patient has had a hysterectomy.; Menopause 3 years ago; hysterectomy in 2015: Menstrual history: NA; Deliveries: I have confirmed and edited as necessary, the PFSH obtained by others. Nelsy Chávez APRN.MAINTENANCE JOB TITLES Presiding Steward offered: Patient declines. OBJECTIVE: There were no [...] which included preparing to see the patient, xzuu-ve-myfc patient care, completing clinical documentation, performing a medically appropriate examination, counseling and educating the patient/family/caregiver and ordering medications, tests, or procedures.[facility]09-25-2023 History of Present illness Narrative* [...] new Pain: no Abnormal Vaginal Discharge: no SUPERVISOR FUR FLOOR WORKER 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 She has no history of an abnormal mammogram with cysts on US LMP: No LMP recorded. Patient has had a hysterectomy.; Menopause 3 years ago; hysterectomy in 2014:Menstrual history: NA; Deliveries: I have confirmed and edited as necessary, [facility] others. Nelsy Chávez APRN.MAINTENANCE JOB TITLES Presiding Steward offered: Patient declines. OBJECTIVE: There were no [...] was helpful Plan: Will rout to Dr. Wagn as FYI and coordinate follow up Pt opts to stop Myrbetriq for now d/t side effects Nelsy Chávez APRN.KWESI I spent a total of 45 minutes on the date of the service which included preparing to see the patient, pszg-rg-fgpf patient care, completing clinical documentation, performing a medically appropriate examination, counseling and educating the patient/family/caregiver and ordering medications, tests, or procedures. documented in this encounterDetwiler Memorial Hospital06-21-2023 Evaluation note* Encounter Date Diagnosis Assessment [...] Apr, Other chronic pain (ICD-10 - G89.29) 21 Georges, 2023 Other Above note writ ten by Wanda Yang LPN, Dispatch Clerk. Edited and approved by Dr. Beto Snyder MD. Present Other 06-06-2023 Miscellaneous Notes* Telephone Encounter - Serenity Joseph MA - 04/11/2023 10:19 AM EDT MEREDITH=10/11/22 Spoke with patient she does need a refill Medication pended please file Rx request if appropriate Patient and pharmacy verified documented in this encounterDetwiler Memorial Hospital05-15-2023 Miscellaneous Notes* Telephone Encounter - Regina Philippe - 03/20/2023 2:50 PM EDT Should patient follow up via virtual visit to discuss further? * Telephone Encounter - Steffi Ross LPN - 03/20/2023 10:20 AM EDT Patient's stool tests came back normal. Steffi Ross LPN documented in this encounterDetwiler Memorial Hospital04-18-2023 NotePROCEDURE: XR ANKLE RT MIN [...] Electronically authenticated by: ZAIDA ACOSTA Date: 2023-02-21 10:15[facility]04-18-2023 NotePROCEDURE: XR ANKLE RT MIN 3 [...] Electronically authenticated by: ZAIDA ACOSTA Date: 2023-02-21 10:15[facility]Ykmqwcao05-80-0713 NotePROCEDURE: XR FOOT RT MIN 3 VIEWS [...] Electronically authenticated by: ZAIDA ACOSTA Date: 2023-01-31 11:55[facility]hillYofamecq92-81-3452 Miscellaneous Notes* Telephone Encounter - Jennie Moreno RN - 01/19/2023 2:17 PM EDT Please review and advise patient. documented in this encounterDetwiler Memorial Hospital03-13-2023 Miscellaneous Notes* Telephone Encounter - Mounika Roberto PA-C - 01/16/2023 1:08 PM EDT Patient was scheduled for virtual PACC appt at 1300 today. Patient did not check in for visit. Called patient at [phone] to see if they needed any assistance logging in and left voicemail. This message routed to PACC schedulers to contact patient to reschedule PACC appt. Mounika Roberto PA-C January 16, 2023 1:09 PM documented in this encounterDetwiler Memorial Hospital03-13-2023 History and physical note * Mounika Roberto PA-C - 01/16/2023 1:00 PM EDT This is a virtual visit using Houzzhart video visit. It required patient-provider interaction for themedical decision making as documented below. I have communicated my name and active licensure. The patient's identity and physical location wereverified at the time of this visit. Either the patient or their legal nutrition representative has been informed of the risks and benefits of and alternatives to treatment through a remote evaluation and consents to proceed with the evaluation remotely. Surgeon: Winston Hannah DO Type of surgery: GEN SURG: POP Patient scheduled for surgery on 02/08/23 . Surgery Location: Diagnosis: Preop examination (primary encounter diagnosis) Nausea [...] in the AM and 4 mg PM blrjdxzvmoe-xfezkburt-efllffwt (TRELEGY ELLIPTA) 100-62.5-25 mcg Inhale 1 Puff [...] 16, 2023 12:36 PM documented in this encounterDetwiler Memorial Hospital03-13-2023 Instructions* Patient Instructions* Mounika Roberto PA-C - 01/16/2023 12:38 PM EDT PATIENT PREOPERATIVE INSTRUCTIONS Winston Hannah DO has scheduled you for your procedure at this surgery center: [facility]: [phone] -- [place] [id number]. Please read below carefully for your personalized [...] Procedures: - YOU MUST HAVE A RESPONSIBLE BONE CHAR KILN OPERATOR TAKE YOU HOME. A DIGITAL STRATEGY DIRECTOR OR COOKER HELPER CANNOT BE MADE A RESPONSIBLE BONE CHAR KILN OPERATOR. - We recommend that a responsible [...] Advance Directive, please fax a copy to [phone] or email to for it to be added to your chart. If you do not have an Advance Directive, you can find the appropriate form and more information at [email or web address]. We recommend that youcomplete the Advance Directive form found on the website and bring it with you the day of your surgery. It can be witnessed and scanned into your chart that day. Mounkia Roberto PA-C documented in this encounterDetwiler Memorial Hospital03-08-2023 Miscellaneous Notes* Telephone Encounter - Berta Ann RN - 01/11/2023 9:47 AM EST Procedure pended for 02/08/23. Pt aware of need for PACC. Pre-op instructions reviewed, will send to pt's MC, per pt request. Postop appt scheduled. No other questions at this time. Berta HENSON, RN Specialty Fisherman Helper documented in this encounterDetwiler Memorial Hospital03-07-2023 History of Present illness Narrative* Winston Hannah, - 01/10/2023 9:09 AM EST Images from the original note were not included. [facility] [place] Gastroparesis/Dysmotility Follow Up This encounter was provided [...] of care. NAME: Mary Leal CLINIC NO: [id number] CHIEF COMPLAINT Idiopathic Gastroparesis HISTORY OF PRESENT [...] Normal gastric transit Normal small bowel transit [id number] transit in the distal bowel consistent delay [...] TONSILLECTOMY HX 07/2021 revision VAGINAL HYSTERECTOMY 2014 [facility] 10/2015 for endometriosis, has remaining [...] (FLONASE) 50 mcg/actuation nasal spray Use 1 [place] in each nostril once daily. carBAMazepine XR [...] THE LUNGS every 4 hours if needed kyblqyluzmb-fyvgmcgcl-lpdcsnto (TRELEGY ELLIPTA) 100-62.5-25 mcg Inhale 1 Puff [...] dialysis. No history of symptoms or problems. SUPERVISOR FUR FLOOR WORKER: Negative for abnormal vaginal bleeding, abnormal vaginal [...] and plan of care. documented in this encounterDetwiler Memorial Hospital02-23-2023 Miscellaneous Notes* Addendum Note - Yoni Tuttle MD - 12/29/2022 3:37 PM ESTAddended by: YONI TUTTLE MD on: 12/29/2022 03:37 PM Modules accepted: Orders documented in this encounterDetwiler Memorial Hospital02-20-2023 History of Present illness Narrative* Rosmery Booker, [...] 26, 2022 3:17 PM documented in this encounterDetwiler Memorial Hospital02-17-2023 Miscellaneous Notes* Telephone Encounter - Erica Serrano RN - 12/23/2022 4:36 PM EST Message being addressed in another encounter that was forwarded to provider documented in this encounterDetwiler Memorial Hospital02-16-2023 History of Present illness Narrative* Winston Hannah DO - 12/22/2022 8:52 AM EST Images from the original note were not included. [facility] [place] Gastroparesis/Dysmotility Follow Up This encounter was provided [...] 4-6 weeks with completed esophagram NAME: Mary eLal CLINIC NO: [id number] CHIEF COMPLAINT Idiopathic Gastroparesis HISTORY OF PRESENT [...] chicken spaghetti etc. Duration of symptoms (months): 0998-2890 Weight changes in last 3 months: Stable [...] Normal gastric transit Normal small bowel transit [id number] transit in the distal bowel consistent delay [...] (FLONASE) 50 mcg/actuation nasal spray Use 1 [place] in each nostril once daily. carBAMazepine XR [...] THE LUNGS every 4 hours if needed dvahenxuogy-znbsbbygb-zaomvcdc (TRELEGY ELLIPTA) 100-62.5-25 mcg Inhale 1 Puff [...] dialysis. No history of symptoms or problems. SUPERVISOR FUR FLOOR WORKER: Negative for abnormal vaginal bleeding, abnormal vaginal [...] and plan of care. documented in this encounterDetwiler Memorial Hospital02-15-2023 NotePROCEDURE: XR FOOT RT MIN 3 [...] by: ZAIDA ACOSTA Date: 2022-12-21 12:24[facility]02-09-2023 History of Present illness Narrative* Mary Obrien MD - 12/15/2022 8:40 AM EST COLORECTAL SURGERY December 15, 2022 Mary Leal Virtual Visit Chief Complaint: follow up/ pelvic floor dysfuntion History of Present Illness: Maryjose Leal is a 52 year old female [...] TONSILLECTOMY HX 07/2021 revision VAGINAL HYSTERECTOMY 2014 [facility] 10/2015 for endometriosis, has remaining [...] in the AM and 4 mg PM efrjtlcotik-uvzvjmask-uygufofa (TRELEGY ELLIPTA) 100-62.5-25 mcg Inhale 1 Puff [...] which included preparing to see the patient, wdbj-bf-hvip patient care, completing clinical documentation, obtaining and/or reviewing separately obtained history, counseling and educating the patient/family/caregiver, ordering medications, quincy ts, or procedures, communicating with other HCPs (not separately reported), independently interpreting results (not separately reported), communicating results to the patient/family/caregiver, and care coordination (not separately reported). Mary Obrien MD Colorectal Surgery documented in this encounterDetwiler Memorial Hospital02-08-2023 Miscellaneous Notes* Telephone Encounter - Emily Benton RN - 12/14/2022 5:19 PM EST Several attempts to reach pt unsuccessful - MC sent. * Telephone Encounter - Barber Marie - 12/02/2022 8:39 AM EST SLEEP PHONE Name of caller: Mary Leal Relationship to patient : Self In-state or ayl-of-xsuhb patient: In-State Was permission obtained from patient? Yes Patient identified by Name and Date of . ( Mary Leal, 1970). Yes Reason for Call : Patient said her and Emily was chatting through my chart and Emily calledher about 5:15 yesterday. Number to return call [phone] Okay to leave a message ? Yes Last office visit 12/9/[address] Kusum vines Next office visit 01/13/[address] Tuttle virtual documented in this encounterDetwiler Memorial Hospital02-06-2023 Miscellaneous Notes* Telephone Encounter - Jet [...] and follow up testing return call to [phone] documented in this encounterDetwiler Memorial Hospital02-03-2023 Miscellaneous Notes* Telephone Encounter - MALAIKA Rosales - 12/09/2022 1:31 PM EST Called patient and advised of Dr Msaters's message. Patient said Dr Masters was going [...] patient Summary: As noted Concerns: Procedure results Fisherman Helper plan for next outreach: Will follow up Signature Nelsy Gilmore RN December 08, 2022 documented in this encounterDetwiler Memorial Hospital01-30-2023 Nurse Note* Lisa Contreras RN - 12/05/2022 1:05 PM EST [facility] END[facility] PRE PROCEDURE CALL Akiko. I'm calling from [facility] endoscopy to provide you with the information for your surgery/procedure tomorrow. Spoke to: Patient CONFIRM Procedure Planned with patient:Esophagogastroduodenoscopy(EGD) with or without biopies based on clinical findings, removal of polyps or lesions Are you familiar with where [facility] is located?yes Address [address] [facility] Patient instructed to enter through the main hospital entrance off [address] through the revolving doors and check in at the main desk with your hazmat cdl driver's license and insurance card.yes When anesthesia or sedation is being given: Patient instructed you must have an adult hazmat cdl driver because you will not be able to work or drive for the rest of the day after your test.yes Can you please confirm the name and relationship of your hazmat cdl driver. tbd What is the best number for your hazmat cdl driver to be reached at tomorrow for updates? tbd Your hazmat cdl driver is allowed to wait here with [...] Do not wear makeup, lotion, or finger nigerien. yes Patient instructed: Please bring a list [...] given Any barriers to Patient learning (confusion? Centrifuge Separator Tender needed?): Patient/Patient Skull Splitter responded appropriately on phone. If patient needs to reschedule please call: [phone] [facility] phone number: [phone] Type of instruction given: Verbal by telephone contact. documented in this encounterDetwiler Memorial Hospital01-27-2023 Nurse Note* Isra Harman RN - 12/02/2022 10:48 AM EST [facility] PRE PROCEDURE CALL Akiko. I'm calling from [facility] endoscopy to provide you with the information for your surgery/procedure tomorrow. Spoke to: Patient CONFIRM Procedure Planned with patient: Are you familiar with where [facility] is located?yes Address [facility] Patient instructed to enter through the main hospital entrance off [address] through the revolving doors and check in at the main desk with your hazmat cdl driver's license and insurance card.yes When anesthesia or sedation is being given: Patient instructed you must have an adult hazmat cdl driver because you will not be able to work or drive for the rest of the day after your test.yes Can you please confirm the name and relationship of your hazmat cdl driver. Rich What is the best number for your hazmat cdl driver to be reached at tomorrow for updates? [phone] Your hazmat cdl driver is allowed to wait here with [...] must be done on Monday.) Did you pear picker your bowel prep pt calling office [...] Do not wear makeup, lotion, or finger nigerien. yes Patient instructed: Please bring a list [...] given Any barriers to Patient learning (confusion? Centrifuge Separator Tender needed?): Patient/Patient Skull Splitter responded appropriately on phone. If patient needs to reschedule please call: [phone] [facility] phone number: [phone] Type of instruction given: Verbal by telephone contact. documented in this encounterDetwiler Memorial Hospital01-26-2023 NotePROCEDURE: XR FOOT RT MIN [...] by: ZAIDA ACOSTA Date: 2022-12-01 11:42[facility]01-26-2023 NotePROCEDURE: XR FOOT RT MIN 3 [...] by: ZAIDA ACOSTA Date: 2022-12-01 11:42[facility]01-25-2023 History of Present illness Narrative* Isra [...] in the AM and 4 mg PM vwjogpvmqrx-girhrktcj-boghypzd (TRELEGY ELLIPTA) 100-62.5-25 mcg Inhale 1 Puff [...] no edema RESPIRATORY: No dyspnea : neg SUPERVISOR FUR FLOOR WORKER: neg The remainder of the review of [...] Isra Masters DO 11/30/2022 documented in this encounterDetwiler Memorial Hospital01-19-2023 Miscellaneous Notes* Telephone Encounter - Erica Serrano RN - 11/24/2022 3:20 PM EST This concern was addressed in the phone encounter on 11/24/22. Patient was called back and informed [employer] will complete Prior Authorization for her sleep study. documented in this encounterDetwiler Memorial Hospital01-19-2023 Miscellaneous Notes* Telephone Encounter - Erica [...] All questions answered. * Telephone Encounter - Barberosman Marie - 11/24/2022 2:46 PM EST SLEEP PHONE Name of caller: Mary Leal Relationship to patient : Self In-state or kzw-rj-gpfhe patient: In-State Was permission obtained from patient? Yes Patient identified by Name and Date of . ( Mary Leal, 1970). Yes Reason for Call : Patient stated she spoke to her insurance and they told her that the provider need to call [facility] to see if a PA is needed for the PAP Titration. Number to return call [phone] Okay to leave a message ? Yes Last office visit 10/14/[address] Tuttle virtual Next office visit None documented in this encounterDetwiler Memorial Hospital01-19-2023 History of Present illness Narrative* Isra Masters DO - 11/24/2022 8:29 AM EST Images from the original note were not included. Trello Test Report - [id number] Test start date: 11/17/2022 10:03 AM Musical Instrument Maker Or Repairer: [email or web address] Interpretation date: 11/24/2022 Ordering physician: Isra Masters DO Referring physician: Patient Information Name: Mary LealReno. ID: [id number] date: 1970 Height ft. in.: 5' 4 [...] Normal gastric transit Normal small bowel transit [id number] transit in the distal bowel consistent delay post anastomosis Signature _Dr. Masters Date _11/24/2022 documented in this encounterDetwiler Memorial Hospital01-17-2023 Miscellaneous Notes* Telephone Encounter - Regina Philippe - 11/22/2022 3:37 PM EST Patient calling to verify that Smart Pill monitor was received at [facility]. Monitor was sent via [employer] on 11/19/22. Patient is requesting a confirmation. documented in this encounterDetwiler Memorial Hospital01-16-2023 Miscellaneous Notes* Telephone Encounter - Erica Serrano RN - 11/21/2022 9:11 AM EST BrandShield message sent to patient. Prior Sleep study forwarded to MD to review, Order pended for PAP-titration for provider to review and sign if necessary. documented in this encounterDetwiler Memorial Hospital01-16-2023 History and physical note * Yodit Back PA-C - 11/21/2022 8:00 AM EST PREANESTHESIA CONSULT CLINIC TELEHEALTH VISIT Patient has been identified by name and date of : Yes This is a virtual visit using BrandShield video visit. It require patient-provider interaction for [...] in the AM and 4 mg PM grszlcabrao-viotbyngm-esevvcek (TRELEGY ELLIPTA) 100-62.5-25 mcg Inhale 1 Puff as instructed once daily. No current facility-administered medications for this visit. COVID VACCINATION STATUS: Fully vaccinated REVIEW OF SYSTEMS: Pain Assessment: General: No weight loss, malaise or fevers. Neuro: No history of TIA's, stroke, BIOPSYCHOLOGIST tumor, impaired sensorium, hemiplegia, paraplegia or quadraplegia. [...] requiring medication, no history of angina, CHF, NE, cardiac surgery or stents. Denies rest pain, gangrene or revascularization/amputation for PVD. No history of cardiovascular symptoms or problems. + HLD GI: See HPI : No history of dysuria, frequency or incontinence,, stones or chronic kidney disease SUPERVISOR FUR FLOOR WORKER: Negative for abnormal vaginal bleeding, abnormal vaginal [...] 8:07 AM PAGER/CONTACT #: documented in this encounterDetwiler [facility] Hospital01-12-2023 Miscellaneous Notes* Addendum Note - Yoni [...] - 11/02/2022 12:33 PM EST Received from [facility] Report via fax. 8 pages indexed to chart. documented in this encounterDetwiler Memorial Hospital01-12-2023 History of Present illness Narrative* Annmarie [...] complete. You will be wearing a Data Mounted Police Officer around your neck like a necklace during the test. You must keepthis near you at all times. The Data Mounted Police Officer has an EVENT button. You will be [...] is inside your body. Return the Data Mounted Police Officer to the [facility] after your test is completed. Brittanie Gillespie RN documented in this encounterDetwiler Memorial Hospital01-09-2023 NotePROCEDURE: XR FOOT RT MIN [...] Electronically authenticated by: ZAIDA ACOSTA Date: 2022-11-14 10:39[facility]01-05-2023 NotePROCEDURE: XR FOOT RT MIN 3 [...] Electronically authenticated by: NICKI DACOSTA Date: 2022-11-10 11:44[facility]01-05-2023 Miscellaneous Notes* Telephone Encounter - Annmarie Gillespie RN - 11/10/2022 9:07 AM EST Telephoned patient with SmartPill procedure appointment reminder/instructions. Brittanie Gillespie RN documented in this encounterDetwiler Memorial Hospital01-04-2023 Miscellaneous Notes* Telephone Encounter - Regina [...] to make it legit. documented in this encounterDetwiler Memorial Hospital01-04-2023 Miscellaneous Notes* Telephone Encounter - Wali Doll - 11/09/2022 9:47 AM EST SENT PATIENTS RX TO PREFERRED LOCATION [facility] [phone] Wali Doll PLANT SPECIALIST documented in this encounterDetwiler Memorial Hospital01-03-2023 Miscellaneous Notes* Telephone Encounter - Regina Philippe - 11/08/2022 11:15 AM EST Per Soumya in provider services at [facility]. No prior auth is needed,coverage is active, patient can proceed with Smart Pill. Placed a new referral. Call Ref # [id number] * Telephone Encounter - Regina Philippe - 11/02/2022 3:51 PM EST Spoke with patient. Smart Pill is a covered benefit. Sent email to Smart Pill space scheduler and PFA to assist in scheduling [...] procedure, she can call Earlene Martin at [phone]. documented in this encounterDetwiler Memorial Hospital12-19-2022 Miscellaneous Notes* Telephone Encounter - Steffi [...] calling: self Call patient at: at home [phone] (home) [phone] (cell) Closing statement: Symptom Call: Thank you for calling [facility], your call is very important. A nurse will call in approximately 2-4 hours during business hours. If this is an emergency, please contact 911. Nati Hernandez documented in this encounterDetwiler Memorial Hospital12-13-2022 Miscellaneous Notes* Telephone Encounter - Brooklyn Valle LPN - 10/18/2022 2:43 PM EST Requested Prescriptions Pending Prescriptions Disp Refills Dexlansoprazole 60 mg CpDM [Pharmacy Med Name: DEXLANSOPRAZOLE DR 60 MG CAP] 30 capsule 5 Sig: take 1 capsule by mouth before breakfast Patient last seen 10/11/2022 documented in this encounterDetwiler Memorial Hospital12-12-2022 NotePROCEDURE: XR FOOT RT MIN [...] by: NICKI DACOSTA Date: 2022-10-17 18:06[facility]12-12-2022 NotePROCEDURE: XR FOOT RT MIN 3 [...] by: NICKI DACOSTA Date: 2022-10-17 18:06[facility]12-12-2022 Miscellaneous Notes* Telephone Encounter - Wali Doll - 10/17/2022 9:17 AM EST Faxed order, office notes, demographics, and sleep study to: DME name: [facility] fax: [phone] SAIMA ph: [facility] [place] documented in this encounterDetwiler Memorial Hospital12-06-2022 History of Present illness Narrative* Isra [...] (FLONASE) 50 mcg/actuation nasal spray Use 1 [place] in each nostril once daily. carBAMazepine XR (TEGRETOL XR) 400 mg 12 hr tablet Take 400 mg by mouth q 12 HR. ARIPiprazole (ABILIFY) 30 mg tablet Take 30 mg by mouth once daily. albuterol HFA (PROVENTIL HFA, VENTOLIN HFA) 90 mcg/actuation inhaler inhale 2 puffs by mouth INTO THE LUNGS every 4 hours if needed puhkaqbuzwf-rpjwheaym-mjbalxai (TRELEGY ELLIPTA) 100-62.5-25 mcg Inhale 1 Puff [...] no edema RESPIRATORY: No dyspnea : neg SUPERVISOR FUR FLOOR WORKER: neg The remainder of the review of [...] Isra Masters DO 10/11/2022 documented in this encounterDetwiler Memorial Hospital12-05-2022 Evaluation note* Encounter Date Diagnosis Assessment [...] for rotator cuff healing or recurrent tear Present Other 12-01-2022 Evaluation note* Encounter Date Diagnosis [...] note writ ten by Wanda Yang LPN, Dispatch Clerk. Edited and approved by Dr. Beto Snyder MD. Present Other 11-17-2022 Evaluation note* Encounter Date Diagnosis [...] educated regarding the risks and benefits of mcfp opioid use. She understands the associated risks [...] note writ ten by Lupillo Amezquita MA, Dispatch Clerk. Edited and approved by Dr. Beto Snyder MD. Present Other 11-17-2022 Evaluation note* Encounter Date Diagnosis Assessment Notes Treatment Notes Treatment Clinical Notes Sep, Lumbosacral spondylosis without myelopathy (ICD-10 - M47.817) Present Other 11-09-2022 Evaluation note* Encounter Date Diagnosis [...] note writ ten by Wanda Yang LPN, Dispatch Clerk. Edited and approved by Dr. Beto Snyder MD. [place] [employer] Other 09-21-2022 NotePROCEDURE: XR ANKLE RT MIN [...] authenticated by: NICKI DACOSTA Date: 2022-07-27 19:[address] [place], [place] 5380809-21-2022 NotePROCEDURE: XR ANKLE RT MIN 3 VIEWS, XR FOOT RT MIN 3 VIEWS COMPARISON: 01/06/2021 HISTORY: Pain of right ankle joint FINDINGS: BONES:Remote osteotomy head of the first metatarsal fixed with a single screw. No acute fracture or dislocation. SOFT TISSUES:Negative. No visible soft tissue swelling. EFFUSION:None visible. OTHER: Negative. IMPRESSION: No acute abnormality Electronically authenticated by: NICKI DACOSTA Date: 2022-07-27 19:[address] [place], [place] 5380809-20-2022 Miscellaneous Notes* Telephone Encounter - Silvia Ybarra - 07/26/2022 2:56 PM EDT PA for Dexlansoprazole initiated electronically. Awaiting response [employer] ID# [id number] * Telephone Encounter - Tracy HUNTER - 07/26/2022 1:43 PM EDT Patient needs a prior authorization Medication Order name: Dexlansoprazole 60 mg CpDM Medication: DEXLANSOPRAZOLE 60 MG CAPSULE,BIPHASE DELAYED RELEASE [[id number]] Dispense as Written: No documented in this encounterDetwiler Memorial Hospital09-20-2022 History of Present illness Narrative* Mary [...] TONSILLECTOMY HX 07/2021 revision VAGINAL HYSTERECTOMY 2014 [facility] 10/2015 for endometriosis, has remaining [...] in the AM and 4 mg PM wkoawwkxsjv-cielnswyq-ufymzoqx (TRELEGY ELLIPTA) 100-62.5-25 mcg Inhale 1 Puff [...] (FLONASE) 50 mcg/actuation nasal spray Use 1 [place] in each nostril once daily. carBAMazepine XR [...] which included preparing to see the patient, fadm-cx-zpgc patient care, completing clinical documentation, obtaining and/or reviewing separately obtained history, performing a medically appropriate examination, counseling and educating the pat ient/family/caregiver, ordering medications, tests, or procedures, and care coordination (not separately reported). Mary Obrien MD Colorectal Surgery documented in this encounterDetwiler Memorial Hospital09-20-2022 Nurse Note* Re Sierra MA - 07/26/2022 11:12 AM EDT What is the reason for your visit today? Established patient presents for post op. Who is your referring physician? Are you having poor oral intake? NO Have you had unintentional weight loss of 15 lbs/7 Kg in the last 3-6 months? NO Bowels: Wound: none Temperature: No Drains: No documented in this encounterDetwiler Memorial Hospital08-04-2022 NotePROCEDURE: In the coronal projection, without [...] and signed by Quinton Carson on 06/09/2022 111[address] [id number] Miscellaneous Notes* Telephone Encounter - Raquel Mullen - 06/07/2022 3:34 PM EDT Patient [facility]. The previous was sent to pharmacy which [...] process accordingly. Raquel Mullen documented in this encounterDetwiler Memorial Hospital07-21-2022 Evaluation note* Encounter Date Diagnosis Assessment [...] note writ ten by Lupillo Amezquita MA, Dispatch Clerk. Edited and approved by Dr. Beto Snyder MD. Present Other 07-05-2022 Evaluation note* Encounter Date Diagnosis [...] [facility] document. Present Other 06-28-2022 Miscellaneous Notes* Telephone Encounter - [...] concerns at this time. documented in this encounterDetwiler Memorial Hospital06-21-2022 Miscellaneous Notes* Telephone Encounter - Jet [...] procedure on 03/28. Thanks! documented in this encounterDetwiler Memorial Hospital06-17-2022 History of Present illness Narrative* Jessi [...] (FLONASE) 50 mcg/actuation nasal spray Use 1 [place] in each nostril once daily. carBAMazepine XR [...] THE LUNGS every 4 hours if needed zbyamkurlnb-lxcubcyie-jdxpeogz (TRELEGY ELLIPTA) 100-62.5-25 mcg Inhale 1 Puff [...] Sheets APRN.KWESI Colorectal Surgery documented in this encounterDetwiler Memorial Hospital06-17-2022 Nurse Note* Mary Mena MA - 04/22/2022 12:06 PM EDT .What is the reason for your visit today? Post op Who is your referring physician? Self Are you having poor oral intake? NO Have you had unintentional weight loss of 15 lbs/7 Kg in the last 3-6 months? NO Bowels: regular Wound: none Temperature: No Drains: No documented in this encounterDetwiler Memorial Hospital06-02-2022 Miscellaneous Notes* Telephone Encounter - Rachael - 04/07/2022 12:35 AM EDT Record ID: [id number] Patient name: Mary Leal Date: April 06, [...] likely is it that you would recommend [facility] to a friend or family member? -> likely Please tell me what you liked best about your hospital experience: -> The nurses documented in this encounterDetwiler Memorial Hospital05-31-2022 NoteHNO ID: [id number] Author: Pravin Ladd MD Service: Colorectal Author Type: Resident Type: Progress Notes Filed: 04/05/2022 7:52 AM Note Text: COLORECTAL SURGERY PROGRESS NOTE Mary Leal [id number] ASSESSMENT AND PLAN Mary Leal is a [...] - General Pravin Ladd MD General Surgery residentRutland Heights State [id number] NoteHNO ID: [id number] Author: Nita Lamas MD Service: Colorectal Author Type: Fellow Type: Progress Notes Filed: 04/04/2022 9:40 AM Note Text: COLORECTAL SURGERY PROGRESS NOTE Mary Leal [id number] ASSESSMENT AND PLAN Mary Leal is a [...] Nita Lamas MD Colorectal Fellow 04/04/2022 9:40 [facility]05-29-2022 NoteHNO ID: [id number] Author: Pravin Ladd MD Service: Colorectal Author Type: Resident Type: Progress Notes Filed: 04/03/2022 8:03 AM Note Text: COLORECTAL SURGERY PROGRESS NOTE Mary Leal [id number] ASSESSMENT AND PLAN Mary Leal is a [...] - General Pravin Ladd MD General Surgery ResidentRutland Heights State HospitalAwoifjsr46-47-5202 NoteHNO ID: [id number] Author: Nancy Cadena MD Service: Colorectal Author Type: Resident Type: Progress Notes Filed: 04/02/2022 8:34 AM Note Text: COLORECTAL SURGERY PROGRESS NOTE Mary Leal [id number] ASSESSMENT AND PLAN Mary Leal is a [...] Nancy Cadena MD General Surgery Resident, PGY-2 [id number] [id number] NoteHNO ID: [id number] Author: Nancy Cadena MD Service: Colorectal Author Type: Resident Type: Progress Notes Filed: 04/01/2022 7:15 AM Note Text: Attestation signed by Mary Obrien MD at 04/01/2022 7:21 PM [facility] STAFF PHYSICIAN NOTE OF PERSONAL INVOLVEMENT IN [...] April 01, 2022 COLORECTAL SURGERY PROGRESS NOTE Maryjonathan Leal [id number] ASSESSMENT AND PLAN Maryjonathan Leal is a [...] Nancy Cadena MD General Surgery Resident, PGY-2 [id number] NoteHNO ID: [id number] Author: Yolanda Lamb MD Service: Colorectal Author Type: Resident Type: Progress Notes Filed: 03/31/2022 9:08 AM Note Text: COLORECTAL SURGERY PROGRESS NOTE Mary Leal [id number] ASSESSMENT AND PLAN Mary Leal is a [...] RESECTION AND ANASTOMOSIS - General Yolanda Lamb MDRutland Heights State HospitalUsyuvouy61-81-1288 NoteHNO ID: [id number] Author: Pravin Ladd MD Service: Colorectal Author [...] appropriately TTP around incisions. 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 - Advance to GI soft diet - [...] RESECTION AND ANASTOMOSIS - General Pravin Ladd MDRutland Heights State HospitalHdfttxms37-04-5506 NoteHNO ID: [id number] Author: ELIZABETH Dias Service: Care Management Author Type: Over Hauler Helper Type: Care Mgt Initial Assessment Filed: 03/29/2022 [...] time ADVANCE DIRECTIVES Current Advance Directive: None Surgery Scheduling Coordinator Attempted to Assist with AD Completion: Yes [...] Housing Stability: Not on file PATIENT SCREEN Patient/Skull Splitter Stated Goals: To be cured/healed Under the [...] March 29, 2022 TIME: 3:45 PM PHONE: [phone] [id number] NoteHNO ID: [id number] Author: Pravin Ladd MD Service: Colorectal Author Type: Resident Type: Progress Notes Filed: 04/01/2022 5:50 AM Note Text: COLORECTAL SURGERY PROGRESS NOTE Mary Leal [id number] ASSESSMENT AND PLAN Mary Leal is a 51 year old female with PMHx Asthma, HTN, BPD, Dyslipidemia and colonic inertia who is now s/p Hand assisted TAC, EI takedown + OANH 03/28 - ALCOHOL LAW ENFORCEMENT AGENT for pain control - Magnesium replacement for [...] RESECTION AND ANASTOMOSIS - General Pravin Ladd MDRutland Heights State HospitalVuwmkkbt69-30-6623 NoteHNO ID: [id number] Author: Nathanael Craig DO Service: Anesthesiology Author Type: Anesthesiologist Type: Anesthesia Procedure Notes Filed: 03/28/2022 4:16 PM Note Text: ANESTHESIOLOGY PROCEDURE NOTE Peripheral Nerve Block General Information Procedure Start Time/Medication Administration: 03/28/2022 3:50 PM Procedure End time: 03/28/2022 3:55 PM Patient location during procedure: OR Timeout Performed Pre-procedure: timeout performed Consent Obtained: Yes 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: care steam frame operator and arm band Reason for block: [...] identity confirmed: arm band and care steam frame operator Reason for block: post-op pain management/at [...] March 28, 2022 TIME: 4:14 PM CSN: [id number] [id number] NoteHNO ID: [id number] Author: Adriana Stanley APRN.WASH TANK TENDER Service: Anesthesiology Author Type: Nurse Interpretative Dancer Type: Anesthesia Procedure Notes Filed: 03/28/2022 9:49 AM Note Text: ANESTHESIOLOGY PROCEDURE NOTE Airway General Information Procedure Start Time/Medication Administration: 03/28/2022 9:21 AM Patient location during procedure: OR 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, care steam frame operator and patient Staffing WASH TANK TENDER: Adriana Stanley APRN.WASH TANK TENDER Performed by: BECCA Indications and Patient Condition [...] March 28, 2022 TIME: 9:49 AM CSN: [id number] [id number] NoteHNO ID: [id number] Author: Adriana Stanley APRN.CRNA Service: Anesthesiology Author Type: Nurse Interpretative Dancer Type: Anesthesia Procedure Notes Filed: 03/28/2022 9:49 [...] Imaging Guidance Used: No SIGNATURE: Adriana Stanley APRN.WASH TANK TENDER PATIENT NAME: Mary Leal DATE: March 28, 2022 TIME: 9:48 AM CSN: [id number] [id number] Miscellaneous Notes* Telephone Encounter - Jet Wong [...] colon. Would like a call back at [phone] documented in this encounterDetwiler Memorial Hospital05-10-2022 Miscellaneous Notes* Telephone Encounter - Jennie Moreno RN - 03/15/2022 2:39 PM EDT Outside medical record EGD H Pylori biopsy received by fax. Scanned into [employer] under scanned documents. Hard copy handed to Dr. Masters. Per Dr Masters- please call patient and let her know the H Pylori biopsy is negative. Called patient . Message relayed. No questions at this time. * Telephone Encounter - Karthikeyan Turk RN - 03/15/2022 2:21 PM EDT Called [facility] and I was transferred to medical records. Requesting a cover sheet with the request result be faxed to them at [phone]. H Pylori result request faxed with confirmation. * Telephone Encounter - Karthikeyan Turk RN - 03/15/2022 2:21 PM EDT Images from the original note were not included. DO Leo Mariano Sp Dd Clinical Pool Please contact [facility] [phone] to see if the H pylori biopsy is back yet from her EGD there documented in this encounterDetwiler Memorial Hospital05-10-2022 Evaluation note* Encounter Date Diagnosis Assessment [...] note writ ten by Wanda Yang LPN, Dispatch Clerk. Edited and approved by Dr. Beto Snyder MD. Present Other 05-10-2022 Miscellaneous Notes* Telephone Encounter - Silvia Ybarra - 03/15/2022 1:24 PM EDT PA for Dexilant renewal initiated through [employer]. Awaiting response ID# [id number] Rx BIN [id number] Rx PCN MCAIDOH Rx Grp [id number] documented in this encounterDetwiler Memorial Hospital05-10-2022 Miscellaneous Notes* Telephone Encounter - Jet Wong RN - 03/15/2022 9:28 AM EDT She called the office with complaints of dark red blood in her ostomy bag for the last 2 weeks. [place]. [place] had [place] in [place] that showed gastritis. She followed up with [...] concerns at this time. documented in this encounterDetwiler Memorial Hospital05-10-2022 History of Present illness Narrative* Isra [...] seem be musculoskeletal in nature.EGD done in [facility] showed some gastritis and duodenitis. Current [...] (FLONASE) 50 mcg/actuation nasal spray Use 1 [place] in each nostril once daily. carBAMazepine XR [...] THE LUNGS every 4 hours if needed etsittkjbds-lgshrvvkj-qismwekm (TRELEGY ELLIPTA) 100-62.5-25 mcg Inhale 1 Puff [...] no edema RESPIRATORY: No dyspnea : neg SUPERVISOR FUR FLOOR WORKER: neg The remainder of the review of [...] Isra Masters DO 03/15/2022 documented in this encounterDetwiler Memorial Hospital05-09-2022 Instructions* Patient Instructions* Urmila Alexander APRN.MAINTENANCE JOB TITLES - 03/14/2022 10:43 AM EDT PATIENT PREOPERATIVE INSTRUCTIONS Mary Obrien MD has scheduled you for your procedure at this [facility]: [phone] --[id number] [address]. Please check in on the1st floor at [...] Procedures: - YOU MUST HAVE A RESPONSIBLE BONE CHAR KILN OPERATOR TAKE YOU HOME. A DIGITAL STRATEGY DIRECTOR OR COOKER HELPER CANNOT BE MADE A RESPONSIBLE BONE CHAR KILN OPERATOR. - We recommend that a responsible [...] Advance Directive, please fax a copy to [phone] or email to for it to be [...] your chart that day. documented in this encounterDetwiler Memorial Hospital05-09-2022 History and physical note * Urmila [...] fevers. Neurological: No history of TIA's, stroke, BIOPSYCHOLOGIST tumor, impaired sensorium, hemiplegia, paraplegia orquadraplegia. No [...] > 1 time per night or hematuria. SUPERVISOR FUR FLOOR WORKER: Negative for abnormal vaginal bleeding, abnormal vaginal [...] every 4 hours if needed Taking Yes vcdpimqdnmi-cugfvvfkk-amznrqxc (TRELEGY ELLIPTA) 100-62.5-25 mcg Inhale 1 Puff [...] (FLONASE) 50 mcg/actuation nasal spray Use 1 [place] in each nostril once daily. No medication [...] or any previous visit (from the past [id number] hour(s)). EKG: Assessment HTN (hypertension) Assessment: Managed [...] of difficult airway No abnormal airway history [id number] Score: Age: <65 Sex: Female Hypertension history: [...] 10:30 AM PAGER/CONTACT #: documented in this encounterDetwiler Memorial Hospital04-25-2022 Miscellaneous Notes* Telephone Encounter - Isra [...] Monday, 03/02, at 0900 - routed to [employer] to make it legit. Please advise. documented in this encounterDetwiler Memorial Hospital04-15-2022 Instructions* Patient Instructions* Nelsy Chávez APRN.CNP - 02/18/2022 1:18 PM EDT Healing as expected from surgery. You have a pinpoint area of suture just under the vaginal epithelium surface that may need more time to fully heal. Please call the office if you would like to try vaginal estrogen cream or with any questions/concerns. documented in this encounterDetwiler Memorial Hospital04-15-2022 History of Present illness Narrative* Nelsy [...] no Pain: no Abnormal Vaginal Discharge: no SUPERVISOR FUR FLOOR WORKER HISTORY: Last pap: cannot remember; Last mammogram: She has never had a mammogram LMP: No LMP recorded. Patient has had a hysterectomy.; Menopause n/a: Menstrual history: NA; Deliveries: I have confirmed and edited as necessary, the PFSH obtained by others. Nelsy Chávez APRN.KWESI Presiding Steward offered: Patient declines. OBJECTIVE: There were no [...] like to trial vaginal estrogen Nelsy Chávez APRN.MAINTENANCE JOB TITLES documented in this encounterDetwiler Memorial Hospital04-08-2022 History of Present illness Narrative* Flaca [...] 15 Flaca Bartholomew PT documented in this encounterDetwiler Memorial Hospital04-05-2022 Nurse Note* Re Sierra MA - [...] Temperature: No Drains: No documented in this encounterDetwiler Memorial Hospital04-05-2022 History of Present illness Narrative* Mary [...] (FLONASE) 50 mcg/actuation nasal spray Use 1 [place] in each nostril once daily. carBAMazepine XR [...] THE LUNGS every 4 hours if needed xebtmnjwfus-ipiedugtd-uhkoputo (TRELEGY ELLIPTA) 100-62.5-25 mcg Inhale 1 Puff [...] medical complications of surgery including DVT/PE, PNA, NE, stroke, and . The patient understands these risks and is in agreement with proceeding. Medical Decision Making: Data Reviewed: Tests & Documents Reviewed/ordered: Review of prior notes from myself, OR, Dr. Wang Review of prior operative reports I have discussed Mary Leal's treatment plan and/or results with the patient. Mary Obrien MD Colorectal Surgery documented in this encounterDetwiler Memorial Hospital04-05-2022 History of Present illness Narrative* Magali Mitchell, 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 CONSULTANT.MAINTENANCE JOB TITLES - 02/08/2022 11:04 AM EDT Female Pelvic [...] you received about pain medications helpful? Yes Presiding Steward offered:Patient declines OBJECTIVE: BP 113/76 Pulse 74 [...] understanding. Magali Mitchell APRN.KWESI documented in this encounterDetwiler Memorial Hospital03-29-2022 Miscellaneous Notes* Telephone Encounter - Steffi Ross LPN - 02/01/2022 11:08 AM EDT [facility] 06[facility]10[facility]21 Pharmacy and Rx request verified. Please file if appropriate. Thank you Steffi Ross LPN documented in this encounterDetwiler Memorial Hospital03-28-2022 NoteHNO ID: [id number] Author: Newton Woodward PT Service: ? Author [...] Service Patient transferring care to: [facility]- Flaca Bartholomew SUBJECTIVE: Patient Reason for Visit: [...] untimed codes) : 40 Newton Woodward PT, DPTLuthOhioHealth Dublin Methodist HospitalElqqzkfr16-61-5722 History of Present illness Narrative* Newton Woodward, PT - 01/31/2022 10:42 AM EDT Episode Visit Count: 3 Therapist That Will Oversee The Plan Of Care: [place] then transfer to [facility] Start of Care Date: 01/18/22 Onset [...] Service Patient transferring care to: [facility]- [facility] SUBJECTIVE: Patient Reason for Visit: lack of [...] Newton Woodward PT, DPT documented in this encounterDetwiler Memorial Hospital03-21-2022 NoteHNO ID: [id number] Author: Newton Woodward PT Service: ? Author Type: Physical Therapist Type: Progress Notes Filed: 01/24/2022 1:23 PM Note Text: Episode Visit Count: 2 Therapist That Will Oversee The Plan Of Care: La ramirez transfer to [facility] Start of Care Date: 01/18/22 Onset Date: [...] untimed codes) : 47 Newton Woodward PT, [facility]03-15-2022 NoteHNO ID: [id number] Author: Jessi Isaacs PT Service: ? Author [...] Planned: 8 Planned Treatment Interventions: Therapeutic exercise (96148);Neuromuscular re-education (69058);Manual therapy (03870);Therapeutic activities (69182);Self-long-term management (90520);Patient/Family/Caregiver Education PLAN FOR NEXT VISIT: PFM dynamics; biofeedback Patient demonstrates good understanding of plan of care and treatment. The above goals and plan of care were discussed and agreed upon by patient/family. Transfer of Care Due To: Closer to Home (patient to transfer in February 2022) Patient transferring care to: [facility]- [facility] Bartholomew SUBJECTIVE: Mary Leal is a [...] function/quality of life. 52 (more content not included)..[facility]02-21-2022 NoteHNO ID: [id number] Author: Moni Munguia RN Service: Care Management Author Type: Registered Nurse Type: Care Mgt Progress Note Filed: 12/27/2021 4:17 PM Note Text: CARE MANAGEMENT DISCHARGE NOTE SERVICE DATE: 12/27/2021 SERVICE TIME: 4:14 PM LOS: 3 days Admission Date: 12/24/2021 DISCHARGE ARRANGEMENT (list agency and phone number) Discharge Arrangement: Home with [facility] Health [facility]ARE[facility] ASSESSMENT: HANDOFF COMMUNICATION: Handoff to: Primary Care Physician Primary Care Physician Name/Phone: Eliceo Gómez Jr [phone] TRANSPORTATION ARRANGEMENTS: Transportation Arrangements: N/A The Pt is accepted by [facility] for new ostomy care. The SOC will be within 24 to 48 hrs. The pt will be contacted directly with the SOC. The Pt verbalized agreement with this dc plan. SIGNATURE: Moni Munguia RN PATIENT NAME: Mary Leal DATE: December 27, 2021 TIME: 4:14 PM PAGER/CONTACT #: [phone] NoteHNO ID: [id number] Author: Parish Celeste DO Service: Colorectal Author [...] - Pain and nausea control -> d/c ALCOHOL LAW ENFORCEMENT AGENT - D/c entereg - Culturelle - Continue [...] bag. EXTREMITIES: well perfused and warm Date 12/26/21699 - 12/27/21 0659 12/27/21 07 - 12/28/21 0659 Shift 2262-5134 6809-1549 2713-8008 24 Hour Total 3274-3875 4596-3474 5323-3442 24 Hour Total INTAKE PO 60 60 PO 60 60 IV 2100 2100 Volume (mL) (lactated ringers iv infusion) 2100 2100 Shift Total 2160 2160 OUTPUT Urine 4019 631 4005 2300 200 200 Void (ml) 300 1000 1300 200 200 Output ( Indwelling Urinary Catheter 12/24/21 Call 16 Fr) 1000 1000 Emesis 0 0 Emesis (ml) 0 0 Ostomy 250 125 375 Ileostomy 1 250 125 375 # of BMs Number of BMs 0 x 0 x Shift Total 4110 202 7609 2675 200 200 Weight (kg) 82.1 82.1 82.1 82.1 82.1 82.1 82.1 82.1 Recent Labs 12/26/21 0755 12/25/21 0606 WBC -- 5.96 HB -- 11.6 HCT -- 35.2* PLT -- 271 NA 139 141 K 4.0 4.0 CHLOR 102 104 CO2 28 28 CREAT 0.62* 0.72 BUN 10 12 GLUC 71 91 CA 8.5 8.5 Parish Celeste DO General Surgery, PGY-4 [phone] After 6 pm and on the weekends please page [phone] 12-26-2021 NoteHNO ID: [id number] Author: Jenifer Ayala MD Service: Colorectal Author Type: Fellow Type: Progress Notes Filed: 12/26/2021 12:13 PM Note Text: GENERAL SURGERY PROGRESS NOTE Name: Mary Leal 12/26/2021 12:11 PM Interval Events: Patient doing well post-operatively. No acute events overnight. Tolerating CLD diet without nausea or vomiting. Stoma productive of bilious fluid + gas Pain well controlled with ALCOHOL LAW ENFORCEMENT AGENT + oral pain medication (feels most relief from po oxycodone). Assessment and Plan: 51 year old female with pelvic organ prolapse and chronic constipation, likely slow transit but with possible component of pelvic outlet obstruction and with discordant testing. Patient underwent laparoscopic protopexy on 12/24/21 surgery was uneventful. Post-operative course has been uncompliacted. Pain control- Tylenol Gabapentin Toradol ALCOHOL LAW ENFORCEMENT AGENT: Dilaudid, tegretol, klonopin, requip, trintellix, oxycodone Cardiac- [...] any questions or concerns page FV Blue [id number] Objective Physical exam: BP 117/66 Pulse 77 [...] 0659 12/26/21 07 - 12/27/21 0659 Shift 8099-7250 3259-4386 1430-0900 24 Hour Total 8047-7980 7914-5142 0772-8663 24 Hour Total INTAKE PO 60 60 PO 60 60 IV 213 668 881 Volume (mL) (lactated ringers iv infusion) 213 668 881 Shift Total 273 668 941 OUTPUT Urine 424 094 0724 1000 Void (ml) 0 0 Output ( Indwelling Urinary Catheter 12/24/21 Call 16 Fr) 326 346 0323 1000 Emesis 0 0 Emesis (ml) 0 0 Ostomy 100 100 Ileostomy 1 100 100 # of BMs Number of BMs 0 x 0 x Shift Total 541 287 2031 1000 Weight (kg) 82.1 82.1 82.1 82.1 [...] Diagnosis Date Noted - Pelvic floor dysfunction 12/24/2021[id number] NoteHNO ID: [id number] Author: Sonido Owen MD Service: Colorectal Author [...] been uncompliacted. Pain control- Tylenol Gabapentin Toradol ALCOHOL LAW ENFORCEMENT AGENT: Dilaudid, tegretol, klonopin, requip, trintellix Cardiac- Vitals: [...] Owen MD General Surgery PGY 2 Pg [phone] For any questions or concerns page FV Blue [id number] Objective Physical exam: BP 111/61 Pulse 86 [...] 0659 12/25/21 07 - 12/26/21 0659 Shift 2671-5774 8035-2807 9096-3860 24 Hour Total 1520-0865 2447-8109 2037-5661 24 Hour Total INTAKE PO 240 120 360 PO 240 120 360 IV 3100 3100 Volume (mL) (lactated ringers iv infusion) 1800 1800 Volume (mL) (lactated ringers iv infusion) 1300 1300 Shift Total 3100 173 803 1521 OUTPUT Urine 200 642 475 2523 OR Urine Output 200 200 Output ( Indwelling Urinary Catheter 12/24/21 Call 16 Fr) 300 500 800 Emesis 0 0 0 Emesis (ml) 0 0 0 Ostomy 0 0 0 Ileostomy 1 0 0 0 # of BMs Number of BMs 0 x 0 x 0 x Blood 50 50 Estimated Blood loss 50 50 Shift Total 250 678 642 8717 Weight (kg) 82.1 82.1 82.1 82.1 82.1 [...] Diagnosis Date Noted - Pelvic floor dysfunction 12/24/2021[facility]13 NoteHNO ID: [id number] Author: Adriana Stanley APRN.WASH TANK TENDER Service: Anesthesiology Author Type: Nurse Interpretative Dancer Type: Anesthesia Procedure Notes Filed: 12/24/2021 8:44 [...] December 24, 2021 TIME: 8:44 AM CSN: [id number] NoteHNO ID: [id number] Author: Adriana Stanley APRN.CRNA Service: Anesthesiology Author Type: Nurse Interpretative Dancer Type: Anesthesia Procedure Notes Filed: 12/24/2021 8:44 AM Note Text: ANESTHESIOLOGY PROCEDURE NOTE Airway General Information Procedure Start Time/Medication Administration: 12/24/2021 8:22 AM Patient location during procedure: OR 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 Edited and approved by Dr. Beto Snyder MD. Present Other 11-01-2021 Evaluation note* Encounter Date Diagnosis [...] note writ ten by Lupillo Amezquita MA, Dispatch Clerk. Edited and approved by Dr. Beto Snyder MD. Present Other 10-14-2021 Evaluation note* Encounter Date Diagnosis [...] no improvement in 2 to 3 days. Present Other 10-08-2021 Evaluation note* Encounter Date Diagnosis [...] [facility] At [facility] document Present Other 10-07-2021 Evaluation note* Encounter Date Diagnosis [...] Aug, Other chronic pain (ICD-10 - G89.29) Present Other 09-22-2021 Evaluation note* Encounter Date Diagnosis [...] Jul, Other chronic pain (ICD-10 - G89.29) Present Other 03-01-2021 Note [id number]:127[facility] 01-04-2021 NoteCystoscopy with Botox injection ? [...] if you have a fever over 100 degrees.[facility] 11-11-2020 NoteChief Complaint Pt is here [...] Dawna Marmolejo MD [address] [place] [address]- [phone] Additional Instructions: F/u in 1yr. Patient Education Urinary Frequency I, Christy Gill , personally scribed for Dr. Marmolejo on 11/11/2020 12:07:15. Electronically signedby alex Gill on 11/11/2020 12:07:15. Documentation recorded by the Christy vaz, accurately [...] deficit disorder Bipolar disorder (more content not included)...[facility] Comment on above:Result Comment: Electronically Signed By: Francie BENSON, Dawna Feldman\.br\Date and Time Signed: 11/11/2111:16 EST\.br\Electronically Co-Signed By: Christy Gill MA\.br\Date and Time Co-Signed: 11/11/20 12:07 [id number]:127[facility] Narrative - Reported* MARY LEAL is being seen for an initial evaluation of. * 52-year-old female seen in cardiology consultation at the request of her primary care physician forelevated troponin while in [facility] this past spring that was associated with a GI bleed/gastritis. * Patient recently underwent large bowel resection details of which are unknown and I suspect possibly consistent with ulcerative colitis but again unknown pathology. She had a diverting colostomy with3 anastomosis performed. While in [place] with her GI bleed and primarily gastric [...] * I believe minor troponin elevation in [place] was simply at small type II non- NE troponin elevationrelated to inflammation and gastritis and [...] colectomy. She can follow-up as needed otherwise. -[facility]-Ambrosio Lopez DO Work Phone: Evaluation note* Diagnosis Pelvic floor dysfunction- Primary Pelvic muscle wasting Lack of coordination Follow-up examination after colorectal surgery Follow-up examination, following other surgery [facility] Diagnosis Gastroesophageal reflux disease, unspecified whether esophagitis present documented in this encounter [facility] note* Diagnosis Follow-up examination after colorectal surgery- Primary Follow-up examination, following other surgery documented in this encounter [facility] note* Diagnosis Post-operative state- Primary Other postprocedural status Yeast infection of the skin Candidiasis of skin and nails documented in this encounter [facility] note* Diagnosis Pelvic floor dysfunction- Primary Pelvic muscle wasting Lack of coordination Follow-up examination after colorectal surgery Follow-up examination, following other surgery documented in this encounter [facility] note* Diagnosis Postoperative state- Primary Other postprocedural status Attention to ileostomy ([facility]) Attention to ileostomy documented in this encounter [facility] note* Diagnosis Preop examination- Primary [...] Attention to ileostomy documented in this encounter [facility] note* Diagnosis Gastroesophageal reflux disease, unspecified whether esophagitis present Chronic idiopathic constipation Unspecified constipation Attention to ileostomy (HCC) Attention to ileostomy documented in this encounter [facility] note* Diagnosis Follow-up examination after colorectal surgery- Primary Follow-up examination, following other surgery Pelvic floor dysfunction Pelvic muscle wasting documented in this encounter [facility] noteNo InformationNort [employer] Other Evaluation [facility]Nowestern [facility] Other Evaluation note* Diagnosis Follow-up examination after colorectal surgery- Primary Follow-up examination, following other surgery Periumbilical abdominal pain Abdominal pain, periumbilic Outlet dysfunction constipation Colonic inertia Other functional disorders of intestine documented in this encounter [facility] noteNo assessment information availableK[facility] Work Phone: Evaluation note* Diagnosis Gas bloat syndrome- Primary Chronic idiopathic constipation Unspecified constipation Gastroparesis documented in this encounter [facility] note* Diagnosis Gastroesophageal reflux disease, unspecified whether esophagitis present [facility]* Diagnosis Gastroparesis- Primary [facility] Diagnosis CHUCKIE (obstructive sleep apnea)- Primary Obstructive sleep apnea (adult) (pediatric) [facility]* Diagnosis Pre-op exam- Primary Preoperative examination, unspecified Primary hypertension Unspecified essential hypertension Mild persistent asthma without complication Unspecified asthma Gastroparesis CHUCKIE (obstructive sleep apnea) Obstructive sleep apnea (adult) (pediatric) [facility]* Diagnosis CHUCKIE (obstructive sleep apnea)- Primary Obstructive sleep apnea (adult) (pediatric) [facility]* Diagnosis Chronic idiopathic constipation- Primary Unspecified constipation Nausea Nausea alone [facility]* Diagnosis Gastroesophageal reflux disease with esophagitis without hemorrhage- Primary [facility]* Diagnosis Colonic inertia- Primary Other functional disorders of intestine Pelvic floor dysfunction Pelvic muscle wasting Nausea Nausea alone Gastroparesis [facility] Diagnosis Pylorospasm- Primary Functional dyspepsia Dyspepsia and other specified disorders of function of stomach Gastroesophageal reflux disease with esophagitis without hemorrhage [facility]* Diagnosis Gastroesophageal reflux disease, unspecified whether esophagitis present [facility]* Diagnosis CHUCKIE (obstructive sleep apnea)- Primary Obstructive sleep apnea (adult) (pediatric) [facility]* Diagnosis Pylorospasm- Primary Functional dyspepsia Dyspepsia and other specified disorders of function of stomach Gastroesophageal reflux disease with esophagitis without hemorrhage [facility]* Diagnosis Gastroparesis- Primary [facility]* Diagnosis Preop examination- Primary Preoperative examination, unspecified Nausea Nausea alone CHUCKIE (obstructive sleep apnea) Obstructive sleep apnea (adult) (pediatric) Mild persistent asthma without complication Unspecified asthma Gastroesophageal reflux disease, unspecified whether esophagitis present Gastroparesis [facility]* Diagnosis 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 Personal history of other diseases of digestive system [facility]* Diagnosis Gastroesophageal reflux disease, unspecified whether esophagitis present [facility]* Diagnosis Incomplete bladder emptying- Primary Constipation, unspecified constipation type Urinary urgency Urgency of urination Urinary frequency Nocturia documented in this encounter [facility] note* Diagnosis Upper abdominal pain- Primary Abdominal pain, other specified site [facility]* Diagnosis Burning with urination- Primary Dysuria documented in this encounter [facility] note* Diagnosis Bety vaginitis Candidiasis of vulva and vagina documented in this encounter [facility] note* Diagnosis Pre-op examination- Primary [...] urge Urge incontinence documented in this encounter [facility] note* Diagnosis Educational circumstances- Primary Educational circumstance Urinary urgency Urgency of urination Urinary frequency OAB (overactive bladder) Hypertonicity of bladder Urinary incontinence, urge Urge incontinence documented in this encounter [facility] note* Diagnosis Post-operative state- Primary Other postprocedural status documented in this encounter [facility] note* Diagnosis Procedure and treatment not carried out for other reasons- Primary documented in this encounter [facility] note* Diagnosis Post-operative state- Primary Other postprocedural status Vaginal burning Other specified symptom associated with female genital organs documented in this encounter [facility] note* Diagnosis Vaginal burning- Primary Other specified symptom associated with female genital organs documented in this encounter [facility] note* Diagnosis [place] grade D esophagitis Early satiety Unintentional weight loss Loss of weight Gastroparesis [facility]* Diagnosis Gas bloat syndrome documented in this encounter [facility] note* Diagnosis Pain Generalized pain Pre-op [...] (pediatric) [facility] Diagnosis Pre-op evaluation- Primary Preoperative [...] (pediatric) [facility] Diagnosis Chronic abdominal pain- Primary Abdominal pain, unspecified site Avoidant-restrictive food intake disorder (ARFID) Bloating Flatulence, eructation, and gas pain Gastroparesis [facility] Diagnosis Anxiety- Primary Anxiety state, unspecified documented in this encounter [facility]* Diagnosis Urinary frequency Urinary urgency Urgency of urination Burning with urination Dysuria Erythema Unspecified erythematous condition Chronic vulvitis Unspecified vaginitis and vulvovaginitis Night sweats Generalized hyperhidrosis documented in this encounter [facility] HealthcareEvaluation note* Diagnosis Granulation tissue Hymen abnormality documented in this encounter [facility] Healthcare[facility]* Diagnosis Degenerative disc disease, cervical- Primary documented in this encounter [facility]* Diagnosis PCB (post coital bleeding)- Primary Postcoital bleeding Granulation tissue documented in this encounter [facility] Healthcare[facility] note* Diagnosis PCB (post coital bleeding) Postcoital bleeding Granulation tissue Hymen abnormality documented in this encounter [facility] HealthcareEvaluation note* Diagnosis Peroneal tendinitis of right lower extremity- Primary Bilateral foot pain Exostosis of bone of foot documented in this encounter [facility] Healthcare[facility]* Diagnosis Soft tissue mass- Primary Disorders of soft tissue, unspecified Gastro-esophageal reflux disease without esophagitis Gastroparesis Mild intermittent asthma, unspecified whether complicated (CMS/HCC) documented in this encounter [facility] Healthcare[facility] note* Diagnosis Oral candidiasis- Primary Candidiasis of mouth Tongue pain Glossodynia documented in this encounter [facility] Healthcare[facility]* Diagnosis Chronic diarrhea- Primary Diarrhea Chronic abdominal pain Abdominal pain, unspecified site Bloating Flatulence, eructation, and gas pain Inadequate oral intake Other symptoms concerning nutrition, metabolism, and development [place] grade D esophagitis Gastroparesis [facility] Diagnosis Aftercare following surgery Encounter for other specified aftercare Aftercare following surgery Encounter for other specified aftercare documented in this encounter [facility] Healthcare[facility]* Diagnosis Aftercare following surgery Encounter for other specified aftercare documented in this encounter [facility]* Diagnosis Seborrheic keratosis Lentigines Capillary angioma Nevus, non-neoplastic documented in this encounter [facility] HealthcareEvaluation note* Diagnosis Restless legs syndrome Restless legs syndrome (RLS) documented in this encounter [facility] HealthcareEvaluation note* Diagnosis Other migraine without status migrainosus, not intractable [facility] Diagnosis CHUCKIE (obstructive sleep apnea)- Primary Obstructive sleep apnea (adult) (pediatric) Pre-op testing- Primary Unspecified pre-operative examination CHUCKIE (obstructive sleep apnea) Obstructive sleep apnea (adult) (pediatric) [facility] Diagnosis Other migraine without status migrainosus, not intractable- Primary [facility]* Diagnosis CHUCKIE (obstructive sleep apnea)- Primary Obstructive sleep apnea (adult) (pediatric) [facility]* Diagnosis Other migraine without status migrainosus, not intractable [facility]* Diagnosis Onset Date Resolution Status Admit Date Lumbar radiculopathy acute April 30, 2025 3:53pm Polyneuropathy acute April 30, 2025 3:53pm [facility] Work Phone: Evaluation note* Diagnosis Gastroparesis- Primary Esophageal dysphagia Dysphagia, pharyngoesophageal phase Gastroesophageal reflux disease with esophagitis without hemorrhage Diarrhea, unspecified type Flatulence Flatulence, eructation, and gas pain [facility]* Diagnosis Mild persistent asthma with acute exacerbation (HCC)- Primary documented in this encounter [facility] Healthcare[facility]* Diagnosis Encounter for gynecological examination without abnormal finding Encounter for Papanicolaou smear of vagina Breast cancer screening by mammogram Hormone replacement therapy Chronic vulvitis Unspecified vaginitis and vulvovaginitis Night sweats Generalized hyperhidrosis Dyspareunia in female Erythema Unspecified erythematous condition documented in this encounter [facility]* Diagnosis Rash and other nonspecific skin eruption- Primary Neoplasm of unspecified behavior of bone, soft tissue, and skin documented in this encounter [facility]* Diagnosis Neuropathy- Primary Mononeuritis of unspecified site B12 deficiency Hyperreflexia Abnormal reflex [facility]* Diagnosis Gastroparesis- Primary Diarrhea, unspecified type Flatulence Flatulence, eructation, and gas pain documented in this encounter [facility] general Narrative - Reported* Type [...] see above list Hospitalization History respiratory 02/2020 [facility] [employer] Other History general Narrative - ReportedNort [employer] Other History general Narrative - Reported* Type [...] see above list Hospitalization History respiratory 02/2020 Present Other Hospital Discharge instructionsAmbulatory Orders* Referral to Rheumatology Location: None [facility] Work Phone: InstructionsNot on filedocumented in this [...] on filedocumented in this encounter [facility] Outpatient Procedure (Routine) - Pending Review Specialty Diagnoses / Procedures Referred By Gustavo salazar Referred To Contact [facility] Diagnoses Gastroparesis Procedures CAPSULE ENDOSCOPY Isra Kitchen DO [facility] [address] [place] [address] [facility] [place] [address] [place] [address] Referral ID Status Reason Start Date Expiration Date Visits Requested Visits Authorized [id number] Pending Review Auto-Generat ed Referral 10/11/2022 10/11/2023 1 [facility] Outpatient Procedure (Routine) - Pending Review Specialty Diagnoses / Procedures Referred By Contac t Referred To Contact [facility] Diagnoses Chronic idiopathic constipation Procedures SIGMOIDOSCOPY SIGMOIDOSCOPY FLX DX W/COLLJ SPEC BR/WA IF PFRMD Isra Masters DO [facility] [address] [place] [address] [address] Referral ID Status Reason Start Date Expiration Date Visits Requested Visits Authorized [id number] Pending Review Auto-Generat ed Referral 11/30/2022 11/30/2023 1 1 [facility] for referral (narrative)* Outpatient Procedure (Routine) - Pending Review Specialty Diagnoses / Procedures Referred By Contac t Referred To Contact [facility] Diagnoses Gastroparesis Procedures EGD - THERAPEUTIC, EUS, OR TUBE INTERVENTIONS ESOPHAGOGASTRODUODENOSC OPY TRANSORAL DIAGNOSTIC STOMACH SURGERY PROCEDURE UNLISTED [place] [address] [address] Referral ID Status Reason Start Date Expiration Date Visits Requested Visits Authorized [id number] Pending Review Auto-Generat ed Referral 01/11/2023 01/12/2024 1 1 [facility] Outpatient Procedure (Routine) - Pending Review Specialty Diagnoses / Procedures Referred By Contac t Referred To Contact [facility] Diagnoses Incomplete bladder emptying Urinary urgency Urinary frequency Nocturia Procedures URODYNAMICS WHI COMPLX CYSTOMETRO W/VOID PRESS&URETHRAL PROFILE Nelsy Chávez, 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ANT.[employer] [address] [place] [address] [address] Referral ID Status Reason Start Date Expiration Date Visits Requested Visits Authorized [id number] Pending Review Auto-Generat ed Referral 07/31/2023 07/30/2024 1 1 [facility] for referral (narrative)* Consultation (Routine) - Open Specialty Diagnoses / Procedures Referred By Contac t Referred To Contact Family Medicine Diagnoses Upper abdominal pain Lev Ritter APRN [employer] [address] [place] [address] [facility] [address] [place] [address] [place] [address] Referral ID Status Reason Start Date Expiration Date Visits Re quested Visits Authorized [id number] Open 08/12/2023 09/12/2024 1 1 [facility] for referral (narrative)* Consultation (Routine) - New Request Specialty Diagnoses / Procedures Referred By Contac t Referred To Contact Psychology Diagnoses Avoidant-restrictive food intake disorder (ARFID) Chronic abdominal pain Padmaja Ledezma MD, PhD [address] [place] [address] Referral ID Status Reason Start Date Expiration Date V isits Requested Visits Authorized [id number] New Request 08/09/2024 09/03/2025 1 1 * Adjunctive Therapy (Routine) - New Request Specialty Diagnoses / Procedures Referred By Contac t Referred To Contact Nutrition and Dietetics Diagnoses Chronic abdominal pain Bloating Gastroparesis Padmaja Ledezma MD, PhD [address] [place] [address] Referral ID Status Reason Start Date Expiration Date V isits Requested Visits Authorized [id number] New Request 08/09/2024 09/03/2025 1 1 * Radiology (Routine) - New Request Specialty Diagnoses / Procedures Referred By Contac t Referred To Contact Diagnoses Chronic abdominal pain Bloating Procedures HYDROGEN (H2) BREATH TEST Padmaja Ledezma MD, PhD [address] [place] [address] Referral ID Status Reason Start Date Expiration Date V isits Requested Visits Authorized [id number] New Request 08/09/2024 09/03/2025 1 1 [facility]ative)No reason for referral information availableTri[facility] Work Phone: Reason for visit NarrativeDISCUSS OTHER OPTIONS PRIOR TO PROCEDURENowestern [facility] [employer] Other Rexzsa for visit NarrativeRECHECK CERVICAL PAIN DISCUSS PROCEDURENort [employer] Other Revzcz for visit Narrative* Outpatient Procedure (Routine) - Closed Specialty Diagnoses / Procedures Referred By Gustavo t Referred To Contact [facility] Diagnoses Gastroparesis Procedures GI TRANSIT & PRES RAVINDER WIRELESS CAPSULE W/Isra Kelly DO [address] [place] [address] [facility] [place] [address] [place] [address] Referral ID Status Reason Start Date Expiration Date Visits Re quested Visits Authorized [id number] Closed 11/08/2022 11/05/2023 1 1 [facility] Summary Purpose Family History Unknown Family [...] Documents on File Type Date Recorded Patient Skull Splitter Expl anation Advance Directive(s) 10/13/2021 4:09 PM Advance Directive(s) 10/14/2020 8:14 AM Documents on File Type Date Recorded Patient Skull Splitter Expl anation Advance Directive(s) 10/13/2021 4:09 PM Advance Directive(s) 10/14/2020 8:14 AM Documents on File Type Date Recorded Patient Skull Splitter Expl anation Advance Directive(s) 03/21/2022 1:42 PM [...] unspecified whether esophagitis present Isra Masters DO [facility] [address] [place] [address] Referral ID Status Reason Start Date Expiration Date Visits Re quested Visits Authorized [id number] Closed 1 1 Referral ID Status Reason Start Date Expiration Date V isits Requested Visits Authorized [id number] Pending Review 1 1 Specialty Diagnoses / Procedures Referred By Gustavo salazar Referred To Contact CT IMAGING Diagnoses Periumbilical abdominal pain Procedures CT ABD/PEL W IVCON CT ABD & PELVIS W/[place] [address] [place] [address] Ct Imaging Referral ID Status Reason Start Date Expiration Date Visits Requested Visits Authorized [id number] Pending Review Auto-Generat ed Referral 08/02/2022 08/25/2023 1 1 Reason BILATERAL SHOULDER P AIN Diagnosis 1 Shoulder pain (M25.5 19) Referral Organization [facility] Referring Provider First Name Beto Referring Provider Last Name Steven Referring Provider Specialty Pain Medici ne Referred Organization [facility] Referred Provider Beto Cartagena Referred Address [address] [place], [place],[address] Referred Provider Specialty Orthopedic S urgery Referral Priority Routine Referral Appointment Date 2022-10-10 General Notes Kim Manley 10:01:46 AM >patient already scheduled with [facility] 10/10/22 at 1:30pm. Sending p2p at this time Referral ID Status Reason Start Date Expiration Date Visits Re quested Visits Authorized [id number] Closed 1 1 Specialty Diagnoses / Procedures Referred By Gustavo salazar Referred To Contact Diagnoses [place] grade D esophagitis Early satiety Unintentional weight loss Gastroparesis Procedures DIAGNOSTIC UPPER ENDOSCOPY W[place] ESOPHAGOGASTRODUODENOSCOPY TRANSORAL DIAGNOSTIC Padmaja Ledezma MD, PhD [address] [place] [address] Referral ID Status Reason Start Date Expiration Date V isits Requested Visits Authorized [id number] New Request 03/06/2024 03/31/2025 1 1 Specialty Diagnoses / Procedures Referred By Gustavo salazar Referred To Contact Diagnoses Other migraine without status migrainosus, not intractable Pauline Christensen MD [address] [facility] [place] [address] Referral ID Status Reason Start Date Expiration Date V isits Requested Visits Authorized [id number] Pending Review 05/15/2024 05/15/2025 1 1 Referral ID Status Reason Start Date Expiration Date V isits Requested Visits Authorized [id number] Pending Review 05/15/2024 05/15/2025 1 1 Chief Complaint and Reason for Visit Chief Complaint M25.519 M25.569 R52 Chief Complaint M25.519 M25.569 R52 bilateral shoulder pain Chief Complaint M76.821/right foor p ain Chief Complaint M76.821/right foor p ain chest tightness dizzy sob Chief Complaint r11.0 r10.11 Chief Complaint M76.71 Chief Complaint M76.71 Unknown Chief Complaint Admit Date cervical spondylosis, [facility] 2:53[facility] Chief Complaint Admit Date cervical spondylosis, radiculopathy [facility] 2023 2:53pm M54.12 October 09, 2024 8 [...] Chief Complaint Admit Date cervical spondylosis, radiculopathy [facility] 2023 2:53pm M54.12 October 09, 2024 8 :55am m47.816 October 10, 2024 8 :42am M54.16 October 10, 2024 8 :44am EMG/MRI results October 14, 2024 8 :25am Granulation Tissue, Post Coital Bleeding , Hymenal October 24, 2024 5:57am R14.0 K31.84 November 14, 2024 6: 37am f/u after PM November 20, 2024 1 :13pm Chief Complaint Admit Date cervical spondylosis, radiculopathy [facility] 2023 2:53pm M54.12 October 09, 2024 [...] dizziness, diaphoresis with recent work-up that [facility] emergency room. Reportedly her troponins are elevated [...] are currently being investigated at [facility] (now her fourth GI specialist). * Last year while in [place] she had similar issues with elevated troponins in the ED and underwent heart catheterization that did not reveal any specific significant disease, details of the discharge summary are reviewed * She underwent recent stress perfusion imaging at [facility], the report is reviewed, she hasno evidence [...] will investigate the troponin rise at [facility] however I believe this is likely a non- NE troponin elevation, likely associated withunderlying inflammatory bowel disease. We will follow-up on a as needed basis unless further objective data come to light * Patient is a 53-year-old female who returns at the request of her primary care physician with episodic chest discomfort associated weakness, dizziness, diaphoresis with recent work-up that [facility] emergency room. Reportedly her troponins are elevated [...] are currently being investigated at [facility] (now her fourth GI specialist). * Last year while in [place] she had similar issues with elevated troponins in the ED and underwent heart catheterization that did not reveal any specific significant disease, details of the discharge summary are reviewed * She underwent recent stress perfusion imaging at [facility], the report is reviewed, she hasno evidence [...] will investigate the troponin rise at [facility] however I believe this is likely a non- NE troponin elevation, likely associated withunderlying inflammatory bowel disease. We will follow-up on a as needed basis unless further objective data come to light Additional Source Comments INFORMATION SOURCE (unrecogn ized section and content) DATE CREATED AUTHOR 07/08/2021 [facility] DATE CREATED AUTHOR AUTHOR'S ORGANIZ ATION 11/18/2021 [facility] DATE CREATED AUTHOR AUTHOR'S ORGANIZ ATION 02/01/2022 [facility] DATE CREATED AUTHOR AUTHOR'S ORGANIZ ATION 04/05/2022 [facility] DATE CREATED AUTHOR AUTHOR'S ORGANIZ ATION 09/29/2022 [facility] dical Specialist DATE CREATED AUTHOR AUTHOR'S ORGANIZ ATION 12/09/2022 [facility] DATE CREATED AUTHOR AUTHOR'S ORGANIZ ATION 04/16/2023 [facility] DATE CREATED AUTHOR AUTHOR'S ORGANIZ ATION 06/14/2023 [facility] DATE CREATED AUTHOR AUTHOR'S ORGANIZ ATION 08/14/2023 [facility] DATE CREATED AUTHOR AUTHOR'S ORGANIZ ATION 09/02/2023 [facility] DATE CREATED AUTHOR AUTHOR'S ORGANIZ ATION 10/27/2023 [facility] DATE CREATED AUTHOR AUTHOR'S ORGANIZ ATION 01/26/2024 [facility] DATE CREATED AUTHOR AUTHOR'S ORGANIZ ATION 03/16/2024 [facility] DATE CREATED AUTHOR AUTHOR'S ORGANIZ ATION 12/28/2024 [facility] DATE CREATED AUTHOR AUTHOR'S ORGANIZ ATION 12/30/2024 [facility] DATE CREATED AUTHOR AUTHOR'S ORGANIZ ATION 01/26/2025 [facility] DATE CREATED AUTHOR AUTHOR'S ORGANIZ ATION 07/14/2025 [facility] DATE CREATED AUTHOR AUTHOR'S ORGANIZ ATION 07/16/2025 [facility] dical Specialists [facility] DATE CREATED AUTHOR AUTHOR'S ORGANIZ ATION 07/16/2025 [facility] DATE CREATED AUTHOR AUTHOR'S ORGANIZ ATION 07/20/2025 [facility] DATE CREATED AUTHOR AUTHOR'S JAMES ATION 07/23/2025 [facility] Source Comments (unrecognize d section and content) In the event this informatio n is protected by the Federal Confidentiality of Alcohol and Drug Abuse Patient Records regulations: The Federal rules restrict any use of the information to criminally investigate or prosecute any alcohol or drug abuse patient.[facility] the event this information is protected by the Federal Confidentiality of Alcohol and Drug Abuse Patient Records regulations: The Federal rules restrict any use of the information to criminally investigate or prosecute any alcohol or drug abuse patient.[facility] HospitalIn the event this information is protected by the Federal Confidentiality of Alcohol and Drug Abuse Patient Records regulations: The Federal rules restrict any use of the information to criminally investigate or prosecute any alcohol or drug abuse patient.[facility] HospitalIn the event this information is protected by the Federal Confidentiality of Alcohol and Drug Abuse Patient Records regulations: The Federal rules restrict any use of the information to criminally investigate or prosecute any alcohol or drug abuse patient.[facility] HospitalIn the event this information is protected by the Federal Confidentiality of Alcohol and Drug Abuse Patient Records regulations: The Federal rules restrict any use of the information to criminally investigate or prosecute any alcohol or drug abuse patient.[facility] HospitalIn the event this information is protected by the Federal Confidentiality of Alcohol and Drug Abuse Patient Records regulations: The Federal rules restrict any use of the information to criminally investigate or prosecute any alcohol or drug abuse patient.[facility] HospitalIn the event this information is protected by the Federal Confidentiality of Alcohol and Drug Abuse Patient Records regulations: The Federal rules restrict any use of the information to criminally investigate or prosecute any alcohol or drug abuse patient.[facility] HospitalIn the event this information is protected by the Federal Confidentiality of Alcohol and Drug Abuse Patient Records regulations: The Federal rules restrict any use of the information to criminally investigate or prosecute any alcohol or drug abuse patient.[facility] HospitalIn the event this information is protected by the Federal Confidentiality of Alcohol and Drug Abuse Patient Records regulations: The Federal rules restrict any use of the information to criminally investigate or prosecute any alcohol or drug abuse patient.[facility] HospitalIn the event this information is protected by the Federal Confidentiality of Alcohol and Drug Abuse Patient Records regulations: The Federal rules restrict any use of the information to criminally investigate or prosecute any alcohol or drug abuse patient.[facility] HospitalIn the event this information is protected by the Federal Confidentiality of Alcohol and Drug Abuse Patient Records regulations: The Federal rules restrict any use of the information to criminally investigate or prosecute any alcohol or drug abuse patient.[facility] HospitalIn the event this information is protected by the Federal Confidentiality of Alcohol and Drug Abuse Patient Records regulations: The Federal rules restrict any use of the information to criminally investigate or prosecute any alcohol or drug abuse patient.[facility] HospitalIn the event this information is protected by the Federal Confidentiality of Alcohol and Drug Abuse Patient Records regulations: The Federal rules restrict any use of the information to criminally investigate or prosecute any alcohol or drug abuse patient.[facility] HospitalIn the event this information is protected by the Federal Confidentiality of Alcohol and Drug Abuse Patient Records regulations: The Federal rules restrict any use of the information to criminally investigate or prosecute any alcohol or drug abuse patient.[facility] HospitalIn the event this information is protected by the Federal Confidentiality of Alcohol and Drug Abuse Patient Records regulations: The Federal rules restrict any use of the information to criminally investigate or prosecute any alcohol or drug abuse patient.[facility] HospitalIn the event this information is protected by the Federal Confidentiality of Alcohol and Drug Abuse Patient Records regulations: The Federal rules restrict any use of the information to criminally investigate or prosecute any alcohol or drug abuse patient.[facility] the event this information is protected by the Federal Confidentiality of Alcohol and Drug Abuse Patient Records regulations: The Federal rules restrict any use of the information to criminally investigate or prosecute any alcohol or drug abuse patient.[facility] HospitalIn the event this information is protected by the Federal Confidentiality of Alcohol and Drug Abuse Patient Records regulations: The Federal rules restrict any use of the information to criminally investigate or prosecute any alcohol or drug abuse patient.[facility] HospitalIn the event this information is protected [...] or prosecute any alcohol or drug abuse patient.[facility] HospitalIn the event this information is protected by the Federal Confidentiality of Alcohol and Drug Abuse Patient Records regulations: The Federal rules restrict any use of the information to criminally investigate or prosecute any alcohol or drug abuse patient.[facility] HospitalIn the event this information is protected by the Federal Confidentiality of Alcohol and Drug Abuse Patient Records regulations: The Federal rules restrict any use of the information to criminally investigate or prosecute any alcohol or drug abuse patient.[facility] HospitalIn the event this information is protected by the Federal Confidentiality of Alcohol and Drug Abuse Patient Records regulations: The Federal rules restrict any use of the information to criminally investigate or prosecute any alcohol or drug abuse patient.[facility] HospitalIn the event this information is protected by the Federal Confidentiality of Alcohol and Drug Abuse Patient Records regulations: The Federal rules restrict any use of the information to criminally investigate or prosecute any alcohol or drug abuse patient.[facility] HospitalIn the event this information is protected by the Federal Confidentiality of Alcohol and Drug Abuse Patient Records regulations: The Federal rules restrict any use of the information to criminally investigate or prosecute any alcohol or drug abuse patient.[facility] HospitalIn the event this information is protected by the Federal Confidentiality of Alcohol and Drug Abuse Patient Records regulations: The Federal rules restrict any use of the information to criminally investigate or prosecute any alcohol or drug abuse patient.[facility] HospitalIn the event this information is protected by the Federal Confidentiality of Alcohol and Drug Abuse Patient Records regulations: The Federal rules restrict any use of the information to criminally investigate or prosecute any alcohol or drug abuse patient.[facility] HospitalIn the event this information is protected by the Federal Confidentiality of Alcohol and Drug Abuse Patient Records regulations: The Federal rules restrict any use of the information to criminally investigate or prosecute any alcohol or drug abuse patient.[facility] HospitalIn the event this information is protected by the Federal Confidentiality of Alcohol and Drug Abuse Patient Records regulations: The Federal rules restrict any use of the information to criminally investigate or prosecute any alcohol or drug abuse patient.[facility] HospitalIn the event this information is protected by the Federal Confidentiality of Alcohol and Drug Abuse Patient Records regulations: The Federal rules restrict any use of the information to criminally investigate or prosecute any alcohol or drug abuse patient.[facility] HospitalIn the event this information is protected by the Federal Confidentiality of Alcohol and Drug Abuse Patient Records regulations: The Federal rules restrict any use of the information to criminally investigate or prosecute any alcohol or drug abuse patient.[facility] HospitalIn the event this information is protected by the Federal Confidentiality of Alcohol and Drug Abuse Patient Records regulations: The Federal rules restrict any use of the information to criminally investigate or prosecute any alcohol or drug abuse patient.[facility] HospitalIn the event this information is protected by the Federal Confidentiality of Alcohol and Drug Abuse Patient Records regulations: The Federal rules restrict any use of the information to criminally investigate or prosecute any alcohol or drug abuse patient.[facility] HospitalIn the event this information is protected by the Federal Confidentiality of Alcohol and Drug Abuse Patient Records regulations: The Federal rules restrict any use of the information to criminally investigate or prosecute any alcohol or drug abuse patient.[facility] HospitalIn the event this information is protected by the Federal Confidentiality of Alcohol and Drug Abuse Patient Records regulations: The Federal rules restrict any use of the information to criminally investigate or prosecute any alcohol or drug abuse patient.[facility] HospitalIn the event this information is protected by the Federal Confidentiality of Alcohol and Drug Abuse Patient Records regulations: The Federal rules restrict any use of the information to criminally investigate or prosecute any alcohol or drug abuse patient.[facility] HospitalIn the event this information is protected by the Federal Confidentiality of Alcohol and Drug Abuse Patient Records regulations: The Federal rules restrict any use of the information to criminally investigate or prosecute any alcohol or drug abuse patient.[facility] HospitalIn the event this information is protected by the Federal Confidentiality of Alcohol and Drug Abuse Patient Records regulations: The Federal rules restrict any use of the information to criminally investigate or prosecute any alcohol or drug abuse patient.[facility] HospitalIn the event this information is protected by the Federal Confidentiality of Alcohol and Drug Abuse Patient Records regulations: The Federal rules restrict any use of the information to criminally investigate or prosecute any alcohol or drug abuse patient.[facility] HospitalIn the event this information is protected by the Federal Confidentiality of Alcohol and Drug Abuse Patient Records regulations: The Federal rules restrict any use of the information to criminally investigate or prosecute any alcohol or drug abuse patient.[facility] HospitalIn the event this information is protected by the Federal Confidentiality of Alcohol and Drug Abuse Patient Records regulations: The Federal rules restrict any use of the information to criminally investigate or prosecute any alcohol or drug abuse patient.[facility] HospitalIn the event this information is protected by the Federal Confidentiality of Alcohol and Drug Abuse Patient Records regulations: The Federal rules restrict any use of the information to criminally investigate or prosecute any alcohol or drug abuse patient.[facility] HospitalIn the event this information is protected by the Federal Confidentiality of Alcohol and Drug Abuse Patient Records regulations: The Federal rules restrict any use of the information to criminally investigate or prosecute any alcohol or drug abuse patient.[facility] HospitalIn the event this information is protected by the Federal Confidentiality of Alcohol and Drug Abuse Patient Records regulations: The Federal rules restrict any use of the information to criminally investigate or prosecute any alcohol or drug abuse patient.[facility] HospitalIn the event this information is protected by the Federal Confidentiality of Alcohol and Drug Abuse Patient Records regulations: The Federal rules restrict any use of the information to criminally investigate or prosecute any alcohol or drug abuse patient.[facility] HospitalIn the event this information is protected by the Federal Confidentiality of Alcohol and Drug Abuse Patient Records regulations: The Federal rules restrict any use of the information to criminally investigate or prosecute any alcohol or drug abuse patient.[facility] HospitalIn the event this information is protected by the Federal Confidentiality of Alcohol and Drug Abuse Patient Records regulations: The Federal rules restrict any use of the information to criminally investigate or prosecute any alcohol or drug abuse patient.[facility] HospitalIn the event this information is protected by the Federal Confidentiality of Alcohol and Drug Abuse Patient Records regulations: The Federal rules restrict any use of the information to criminally investigate or prosecute any alcohol or drug abuse patient.[facility] HospitalIn the event this information is protected by the Federal Confidentiality of Alcohol and Drug Abuse Patient Records regulations: The Federal rules restrict any use of the information to criminally investigate or prosecute any alcohol or drug abuse patient.[facility] HospitalIn the event this information is protected by the Federal Confidentiality of Alcohol and Drug Abuse Patient Records regulations: The Federal rules restrict any use of the information to criminally investigate or prosecute any alcohol or drug abuse patient.[facility] HospitalIn the event this information is protected by the Federal Confidentiality of Alcohol and Drug Abuse Patient Records regulations: The Federal rules restrict any use of the information to criminally investigate or prosecute any alcohol or drug abuse patient.[facility] HospitalIn the event this information is protected by the Federal Confidentiality of Alcohol and Drug Abuse Patient Records regulations: The Federal rules restrict any use of the information to criminally investigate or prosecute any alcohol or drug abuse patient.[facility] HospitalIn the event this information is protected by the Federal Confidentiality of Alcohol and Drug Abuse Patient Records regulations: The Federal rules restrict any use of the information to criminally investigate or prosecute any alcohol or drug abuse patient.[facility] HospitalIn the event this information is protected by the Federal Confidentiality of Alcohol and Drug Abuse Patient Records regulations: The Federal rules restrict any use of the information to criminally investigate or prosecute any alcohol or drug abuse patient.[facility] HospitalIn the event this information is protected by the Federal Confidentiality of Alcohol and Drug Abuse Patient Records regulations: The Federal rules restrict any use of the information to criminally investigate or prosecute any alcohol or drug abuse patient.[facility] HospitalIn the event this information is protected by the Federal Confidentiality of Alcohol and Drug Abuse Patient Records regulations: The Federal rules restrict any use of the information to criminally investigate or prosecute any alcohol or drug abuse patient.[facility] HospitalIn the event this information is protected by the Federal Confidentiality of Alcohol and Drug Abuse Patient Records regulations: The Federal rules restrict any use of the information to criminally investigate or prosecute any alcohol or drug abuse patient.[facility] HospitalIn the event this information is protected by the Federal Confidentiality of Alcohol and Drug Abuse Patient Records regulations: The Federal rules restrict any use of the information to criminally investigate or prosecute any alcohol or drug abuse patient.[facility] HospitalIn the event this information is protected by the Federal Confidentiality of Alcohol and Drug Abuse Patient Records regulations: The Federal rules restrict any use of the information to criminally investigate or prosecute any alcohol or drug abuse patient.[facility] HospitalIn the event this information is protected by the Federal Confidentiality of Alcohol and Drug Abuse Patient Records regulations: The Federal rules restrict any use of the information to criminally investigate or prosecute any alcohol or drug abuse patient.[facility] HospitalIn the event this information is protected by the Federal Confidentiality of Alcohol and Drug Abuse Patient Records regulations: The Federal rules restrict any use of the information to criminally investigate or prosecute any alcohol or drug abuse patient.[facility] HospitalIn the event this information is protected by the Federal Confidentiality of Alcohol and Drug Abuse Patient Records regulations: The Federal rules restrict any use of the information to criminally investigate or prosecute any alcohol or drug abuse patient.[facility] HospitalIn the event this information is protected by the Federal Confidentiality of Alcohol and Drug Abuse Patient Records regulations: The Federal rules restrict any use of the information to criminally investigate or prosecute any alcohol or drug abuse patient.[facility] HospitalIn the event this information is protected by the Federal Confidentiality of Alcohol and Drug Abuse Patient Records regulations: The Federal rules restrict any use of the information to criminally investigate or prosecute any alcohol or drug abuse patient.[facility] HospitalIn the event this information is protected by the Federal Confidentiality of Alcohol and Drug Abuse Patient Records regulations: The Federal rules restrict any use of the information to criminally investigate or prosecute any alcohol or drug abuse patient.[facility] HospitalIn the event this information is protected by the Federal Confidentiality of Alcohol and Drug Abuse Patient Records regulations: The Federal rules restrict any use of the information to criminally investigate or prosecute any alcohol or drug abuse patient.[facility] the event this information is protected by the Federal Confidentiality of Alcohol and Drug Abuse Patient Records regulations: The Federal rules restrict any use of the information to criminally investigate or prosecute any alcohol or drug abuse patient.[facility] HospitalIn the event this information is protected by the Federal Confidentiality of Alcohol and Drug Abuse Patient Records regulations: The Federal rules restrict any use of the information to criminally investigate or prosecute any alcohol or drug abuse patient.[facility] HospitalIn the event this information is protected [...] or prosecute any alcohol or drug abuse patient.[facility] HospitalIn the event this information is protected by the Federal Confidentiality of Alcohol and Drug Abuse Patient Records regulations: The Federal rules restrict any use of the information to criminally investigate or prosecute any alcohol or drug abuse patient.[facility] HospitalIn the event this information is protected by the Federal Confidentiality of Alcohol and Drug Abuse Patient Records regulations: The Federal rules restrict any use of the information to criminally investigate or prosecute any alcohol or drug abuse patient.[facility] HospitalIn the event this information is protected by the Federal Confidentiality of Alcohol and Drug Abuse Patient Records regulations: The Federal rules restrict any use of the information to criminally investigate or prosecute any alcohol or drug abuse patient.[facility] HospitalIn the event this information is protected by the Federal Confidentiality of Alcohol and Drug Abuse Patient Records regulations: The Federal rules restrict any use of the information to criminally investigate or prosecute any alcohol or drug abuse patient.[facility] HospitalIn the event this information is protected by the Federal Confidentiality of Alcohol and Drug Abuse Patient Records regulations: The Federal rules restrict any use of the information to criminally investigate or prosecute any alcohol or drug abuse patient.[facility] HospitalIn the event this information is protected by the Federal Confidentiality of Alcohol and Drug Abuse Patient Records regulations: The Federal rules restrict any use of the information to criminally investigate or prosecute any alcohol or drug abuse patient.[facility] HospitalIn the event this information is protected by the Federal Confidentiality of Alcohol and Drug Abuse Patient Records regulations: The Federal rules restrict any use of the information to criminally investigate or prosecute any alcohol or drug abuse patient.[facility] HospitalIn the event this information is protected by the Federal Confidentiality of Alcohol and Drug Abuse Patient Records regulations: The Federal rules restrict any use of the information to criminally investigate or prosecute any alcohol or drug abuse patient.[facility] HospitalIn the event this information is protected by the Federal Confidentiality of Alcohol and Drug Abuse Patient Records regulations: The Federal rules restrict any use of the information to criminally investigate or prosecute any alcohol or drug abuse patient.[facility] HospitalIn the event this information is protected by the Federal Confidentiality of Alcohol and Drug Abuse Patient Records regulations: The Federal rules restrict any use of the information to criminally investigate or prosecute any alcohol or drug abuse patient.[facility] HospitalIn the event this information is protected by the Federal Confidentiality of Alcohol and Drug Abuse Patient Records regulations: The Federal rules restrict any use of the information to criminally investigate or prosecute any alcohol or drug abuse patient.[facility] HospitalIn the event this information is protected by the Federal Confidentiality of Alcohol and Drug Abuse Patient Records regulations: The Federal rules restrict any use of the information to criminally investigate or prosecute any alcohol or drug abuse patient.[facility] HospitalIn the event this information is protected by the Federal Confidentiality of Alcohol and Drug Abuse Patient Records regulations: The Federal rules restrict any use of the information to criminally investigate or prosecute any alcohol or drug abuse patient.[facility] HospitalIn the event this information is protected by the Federal Confidentiality of Alcohol and Drug Abuse Patient Records regulations: The Federal rules restrict any use of the information to criminally investigate or prosecute any alcohol or drug abuse patient.[facility] HospitalIn the event this information is protected by the Federal Confidentiality of Alcohol and Drug Abuse Patient Records regulations: The Federal rules restrict any use of the information to criminally investigate or prosecute any alcohol or drug abuse patient.[facility] HospitalIn the event this information is protected by the Federal Confidentiality of Alcohol and Drug Abuse Patient Records regulations: The Federal rules restrict any use of the information to criminally investigate or prosecute any alcohol or drug abuse patient.[facility] HospitalIn the event this information is protected by the Federal Confidentiality of Alcohol and Drug Abuse Patient Records regulations: The Federal rules restrict any use of the information to criminally investigate or prosecute any alcohol or drug abuse patient.[facility] HospitalIn the event this information is protected by the Federal Confidentiality of Alcohol and Drug Abuse Patient Records regulations: The Federal rules restrict any use of the information to criminally investigate or prosecute any alcohol or drug abuse patient.[facility] Reason for Visit (unrecogniz ed section and content) Reason Comments Physical Therapy Specialty Diagnoses / Procedures Referred By Contac t Referred To Contact [facility] Diagnoses Follow-up examination after colorectal surgery Procedures CONSULT TO PHYSICAL THERAPY PHYSICAL THERAPY EVALUATION HIGH COMPLEX [place] [address] [facility] [place] [id number] [place] [address] [place] [address] Referral ID Status Reason Start Date Expiration Date Visits Requested Visits Authorized [id number] Authorized Auto-Generat ed Referral 01/04/2022 11/05/2022 30 30 Reason Comments Refill Request dexlansoprazole Reason Comments Established Patient Follow-Up Reason Comments Post Op Reason Comments Established Patient Reason Comments Appointment for script refill Reason Comments Gastroparesis 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 Reason Comments Medication 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 PA [...] ESOPHAGUS DOUBLE CONTRAST STUDY Winston Hannah, [place] [address] Xr Imaging Referral ID Status Reason Start Date Expiration Date V isits Requested Visits Authorized [id number] Closed Auto-Generate d Referral 11/17/2022 12/17/2023 1 [...] ABD & [place] [address] [place] [address] Ct Imaging Referral ID Status Reason Start Date Expiration Date V isits Requested Visits Authorized [id number] Closed Auto-Generate d Referral 07/28/2022 11/05/2022 2 [...] By Contac t Referred To Contact Diagnoses [place] grade D esophagitis Early satiety Unintentional weight loss Gastroparesis Procedures DIAGNOSTIC UPPER ENDOSCOPY WY ESOPHAGOGASTRODUODENOSCOPY TRANSORAL DIAGNOSTIC Padmaja Ledezma MD, PhD [address] [place] [address] Referral ID Status Reason Start Date Expiration Date V isits Requested Visits Authorized [id number] New Request 03/06/2024 03/31/2025 1 1 Specialty Diagnoses / Procedures Referred By Contac t Referred To Contact Orthopedics / ORTHOPAEDIC SURGERY Diagnoses shoulder pain right pt will hand carry MRI Procedures POLI ACUTE Self Ryan Lynne MD [address] [place] [address] Referral ID Status Reason Start Date Expiration Date V isits Requested Visits Authorized [id number] Closed Financial Clearance Not Required 09/06/2020 10/05/2020 [...] Visit 10/24/24 vaginal cuf f and hymen [id number] daysDenies PO concerns. Bleeding stopped after 7 [...] Team Status: Inactive Member Role Status Dates FRED Schafer Attending Provider Active St art: October 10, [...] Padmaja Ledezma MD Attending Provider Active Start: Louis banuelos 2024 End: November 14, 2024 Team Status: Inactive Member Role Status Dates Shannon Gómez DO Primary Care Provider Active Niecy Duron PA-C Attending Provider Active Client Development Consultant Relationship Specialty Start Date End Date Eliceo Gómez Jr. [address] [place] [phone] PCP - General Family Practice 10/14/20 Client Development Consultant Relationship Specialty Start Date End Date Eliceo Gómez Jr. [address] [place] [address] PCP - General Family Practice 10/14/20 Client Development Consultant Relationship Specialty Start Date End Date Eliceo Gómez Jr. [address] [place] [address] PCP - General Family Practice 10/14/20 Client Development Consultant Relationship Specialty Start Date End Date Eliceo Gómez Jr. [address] [place] [address] PCP - General Family Practice 10/14/20 Client Development Consultant Relationship Specialty Start Date End Date Eliceo Gómez Jr. [address] [place] [address] PCP - General Family Practice 10/14/20 Client Development Consultant Relationship Specialty Start Date End Date Eliceo Gómez Jr. [address] [place] [address] PCP - General Family Practice 10/14/20 Gwendolyn Stroud [address] [place] [address] Family Practice 03/14/22 Client Development Consultant Relationship Specialty Start Date End Date Eliceo Gómez Jr. [address] [place] [address] PCP - General Family Practice 10/14/20 Gwendolyn Stroud [facility] [place] [address] Family Practice 03/14/22 Client Development Consultant Relationship Specialty Start Date End Date Eliceo Gómez Jr. [address] [place] [address] PCP - General Family Practice 10/14/20 Gwendolyn Stroud [facility] [place] [address] Family Practice 03/14/22 Client Development Consultant Relationship Specialty Start Date End Date KaEliceo vilchis Jr. [address] [place] [address] PCP - General Family Practice 10/14/20 Gwendolyn Stroud [address] [place] [address] Family Practice 03/14/22 Client Development Consultant Relationship Specialty Start Date End Date StephonEliceo vilchis Jr. [address] [place] [address] PCP - General Family Practice 10/14/20 Gwendolyn Stroud [address] [place] [address] Family Practice 03/14/22 Client Development Consultant Relationship Specialty Start Date End Date Hernandeztomasa Eliceo Parish [address] [place] [address] PCP - General Family Practice 10/14/20 Gwendolyn Stroud [address] [place] [address] Family Practice 03/14/22 Client Development Consultant Relationship Specialty Start Date End Date Dalia Eliceo Parish [address] [place] [address] PCP - General Family Practice 10/14/20 Gwendolyn Stroud [employer] Family Practice 03/14/22 Client Development Consultant Relationship Specialty Start Date End Date DaliaEliceo Parish [address] [place] [address] PCP - General Family Practice 10/14/20 Gwendolyn Stroud [employer] Family Practice 03/14/22 Client Development Consultant Relationship Specialty Start Date End Date Eliceo Gómez Jr. [address] [place] [address] PCP - General Family Practice 10/14/20 Gwendolyn Stroud, [employer] Family Practice 03/14/22 Client Development Consultant Relationship Specialty Start Date End Date Eliceo Gómez Jr. [address] [place] [address] PCP - General Family Practice 10/14/20 Gwendolyn Stroud, [employer] Family Practice 03/14/22 Client Development Consultant Relationship Specialty Start Date End Date Eliceo Gómez Jr. [address] [place] [address] PCP - General Family Medicine 10/14/20 Gwendolyn Stroud, [employer] Family Medicine 03/14/22 Client Development Consultant Relationship Specialty Start Date End Date Eliceo Gómez Jr. [address] [place] [address] PCP - General Family Medicine 10/14/20 Gwendolyn Stroud, [employer] Family Medicine 03/14/22 Client Development Consultant Relationship Specialty Start Date End Date Eliceo Gómez Jr. [address] [place] [address] PCP - General Family Medicine 10/14/20 Gwendolyn Stroud, [employer] Family Medicine 03/14/22 Client Development Consultant Relationship Specialty Start Date End Date Eliceo Gómez Jr. [address] [place] [address] PCP - General Family Medicine 10/14/20 Gwendolyn Stroud CNP Family Medicine 03/14/22 Team Status: Inactive Member Role Status Dates Shannon Gómez DO Primary Care Provider Active Beto Snyder MD Attending Provider Active Client Development Consultant Relationship Specialty Start Date End Date Eliceo Gómez Jr. [address] [place] [address] PCP - General Family Medicine 10/14/20 Gwendolyn Stroud CNP [address] [place] [address] Family Medicine 03/14/22 Client Development Consultant Relationship Specialty Start Date End Date Eliceo Gómez Jr. [address] [place] [address] PCP - General Family Medicine 10/14/20 Gwendolyn Stroud CNP [address] [place] [address] Family Medicine 03/14/22 Client Development Consultant Relationship Specialty Start Date End Date Eliceo Gómez Jr. [address] [place] [address] PCP - General Family Medicine 10/14/20 Gwendolyn Stroud CNP [address] [place] [address] Family Medicine 03/14/22 Client Development Consultant Relationship Specialty Start Date End Date Eliceo Gómez Jr. [address] [place] [address] PCP - General Family Medicine 10/14/20 Gwendolyn Stroud CNP [address] [place] [address] Family Medicine 03/14/22 Client Development Consultant Relationship Specialty Start Date End Date Eliceo Gómez Jr. [address] [place] [address] PCP - General Family Medicine 10/14/20 Gwendolyn Stroud CNP [address] [place] [address] Family Medicine 03/14/22 Client Development Consultant Relationship Specialty Start Date End Date Eliceo Gómez Jr. [address] [place] [address] PCP - General Family Medicine 10/14/20 Gwendolyn Stroud CNP [address] [place] [address] Family Medicine 03/14/22 Client Development Consultant Relationship Specialty Start Date End Date Eliceo Gómez Jr. [address] [place] [address] PCP - General Family Medicine 10/14/20 Gwendolyn Stroud CNP [address] [place] [address] Family Medicine 03/14/22 Client Development Consultant Relationship Specialty Start Date End Date Eliceo Gómez Jr. [address] [place] [address] PCP - General Family Medicine 10/14/20 Gwendolyn Stroud, [employer] [address] [place] [address] Family Medicine 03/14/22 Client Development Consultant Relationship Specialty Start Date End Date Eliceo Gómez Jr. [address] [place] [address] PCP - General Family Medicine 10/14/20 Gwendolyn Stroud, [employer] [address] [place] [address] Family Medicine 03/14/22 Client Development Consultant Relationship Specialty Start Date End Date Eliceo Gómez Jr. [address] [place] [address] PCP - General Family Medicine 10/14/20 Gwendolyn Stroud, [employer] [address] [place] [address] Family Medicine 03/14/22 Client Development Consultant Relationship Specialty Start Date End Date Eliceo Gómez Jr. [address] [place] [address] PCP - General Family Medicine 10/14/20 Gwendolyn Stroud, [employer] [address] [place] [address] Family Medicine 03/14/22 Team Status: Inactive Member Role Status Henrietta Gómez DO Primary Care Provider Active Beto Cartagena MD Attending Provider Active Client Development Consultant Relationship Specialty Start Date End Date Eliceo Gómez Jr. [address] [place] [address] PCP - General Family Medicine 10/14/20 Gwendolyn Stroud, [employer] [address] [place] [address] Family Medicine 03/14/22 Client Development Consultant Relationship Specialty Start Date End Date Eliceo Gómez Jr. [address] [place] [address] PCP - General Family Medicine 10/14/20 Gwendolyn Stroud CNP [address] [place] [address] Family Medicine 03/14/22 Client Development Consultant Relationship Specialty Start Date End Date Eliceo Gómez Jr. [address] [place] [address] PCP - General Family Medicine 10/14/20 Gwendolyn Stroud CNP [address] [place] [address] Family Medicine 03/14/22 Client Development Consultant Relationship Specialty Start Date End Date Eliceo Gómez Jr. [address] [place] [address] PCP - General Family Medicine 10/14/20 Gwendolyn Stroud CNP [address] [place] [address] Family Medicine 03/14/22 Client Development Consultant Relationship Specialty Start Date End Date Eliceo Gómez Jr. [address] [place] [address] PCP - General Family Medicine 10/14/20 Gwendolyn Stroud CNP [address] [place] [address] Family Medicine 03/14/22 Client Development Consultant Relationship Specialty Start Date End Date Eliceo Gómez Jr. [address] [place] [address] PCP - General Family Medicine 10/14/20 Gwendolyn Stroud, KWESI [address] [place] [address] Family Medicine 03/14/22 Client Development Consultant Relationship Specialty Start Date End Date Eliceo Gómez Jr. [address] [place] [address] PCP - General Family Medicine 10/14/20 Gwendolyn Stroud, KWESI [address] [place] [address] Family Medicine 03/14/22 Client Development Consultant Relationship Specialty Start Date End Date Eliceo Gómez Jr. [address] [place] [address] PCP - General Family Medicine 10/14/20 Gwendolyn Stroud CNP [address] [place] [address] [facility] 03/14/22 Team Status: Inactive Member Role Status Henrietta Gómez , DO Primary Care Provider Active Anibal Valle , DO Emergency Provider Active Client Development Consultant Relationship Specialty Start Date End Date Eliceo Gómez Jr. [address] [place] [address] PCP - General Family Medicine 10/14/20 Gwendolyn Stroud CNP [address] [place] [address] Family Medicine 03/14/22 Client Development Consultant Relationship Specialty Start Date End Date Eliceo Gómez Jr. [address] [place] [address] PCP - General Family Medicine 10/14/20 Gwendolyn Stroud CNP [address] [place] [address] Family Medicine 03/14/22 Client Development Consultant Relationship Specialty Start Date End Date Eliceo Gómez Jr. [address] [place] [address] PCP - General Family Medicine 10/14/20 Gwendolyn Stroud CNP [address] [place] [address] Family Medicine 03/14/22 Client Development Consultant Relationship Specialty Start Date End Date Eliceo Gómez Jr., DO [address] [place] [address] PCP - General Family Medicine 10/14/20 Gwendolyn Stroud CNP [address] [place] [address] Family Medicine 03/14/22 Client Development Consultant Relationship Specialty Start Date End Date Eliceo Gómez Jr., DO [address] [place] [address] PCP - General Family Medicine 10/14/20 Gwendolyn Stroud CNP [address] [place] [address] Family Medicine 03/14/22 Team Status: Inactive Member Role Status Henrietta Gómez DO Primary Care Provider Active Start: November 23, 2023 End: November 23, 2023 Tez Vazquez DO Attending Provider Active Start : November 23, 2023 End: November 23, 2023 Client Development Consultant Relationship Specialty Start Date End Date Eliceo Gómez Parish Morales, DO [address] [place] [address] PCP - General Family Medicine 10/14/20 Gwendolyn Stroud CNP [address] [place] [address] Family Medicine 03/14/22 Client Development Consultant Relationship Specialty Start Date End Date DaliaEliceo Jr., DO [address] [place] [address] PCP - General Family Medicine 10/14/20 Gwendolyn Stroud CNP [address] [place] [address] Family Medicine 03/14/22 Client Development Consultant Relationship Specialty Start Date End Date DaliaEliceo Jr., DO [address] [place] [address] PCP - General Family Medicine 10/14/20 Gwendolyn Stroud CNP [address] [place] [address] Family Medicine 03/14/22 Client Development Consultant Relationship Specialty Start Date End Date Eliceo Gómez Jr., DO [address] [place] [address] PCP - General Family Medicine 10/14/20 Gwendolyn Stroud CNP [address] [place] [address] Family Medicine 03/14/22 Client Development Consultant Relationship Specialty Start Date End Date Eliceo Gómez Jr., DO [address] [place] [address] PCP - General Family Medicine 10/14/20 Gwendolyn Stroud CNP [address] [place] [address] Family Medicine 03/14/22 Client Development Consultant Relationship Specialty Start Date End Date Eliceo Gómez Jr., DO [address] [place] [address] PCP - General Family Medicine 10/14/20 Gwendolyn Stroud, KWESI [address] [place] [address] Family Medicine 03/14/22 Client Development Consultant Relationship Specialty Start Date End Date Eliceo Gómez Jr., DO [address] [place] [address] PCP - General Family Medicine 10/14/20 Gwendolyn Stroud, [employer] [address] [place] [address] Family Medicine 03/14/22 Client Development Consultant Relationship Specialty Start Date End Date Shannon Gómez, DO [address] [place] [address] PCP - General Family Medicine 11/14/23 Team [...] May 27, 2024 End: May 27, 2024 Client Development Consultant Relationship Specialty Start Date End Date Eliceo Gómez Jr., DO [address] [place] [address] PCP - General Family Medicine 10/14/20 Gwendolyn Stroud CNP [address] [place] [address] Family Medicine 03/14/22 Client Development Consultant Relationship Specialty Start Date End Date Eliceo Gómez Jr., [address] [place] [address] PCP - General Family Medicine 10/14/20 Client Development Consultant Relationship Specialty Start Date End Date Shannon Gómez, [address] [place] [address] PCP - General Family Medicine 11/14/23 Client Development Consultant Relationship Specialty Start Date End Date Eliceo Gómez DO [address] [place] [address] PCP - General Family Medicine 04/04/23 Eliceo Gómez DO [address] [place] [address] PCP - [facility] 05/06/23 Dipti Acevedo DO [address] [place] [address] Referring Physician Obstetrics and Gynecology 05/20/24 Client Development Consultant Relationship Specialty Start Date End Date Eliceo Gómez DO [address] [place] [address] PCP - General Family Medicine 04/04/23 Eliceo Gómez DO [address] [place] [address] PCP - [facility] 05/06/23 Dipti Acevedo, [address] [place] [address] Referring Physician Obstetrics and Gynecology 05/20/24 Team Status: Inactive Member Role Status Henrietta Gómez DO Primary Care Provider Active Start: September 16, 2024 End: September 16, 2024 Anibal Medrano DO Attending Provider Active S tart: September 16, 2024 End: September 16, 2024 Client Development Consultant Relationship Specialty Start Date End Date Eliceo Gómez DO [address] [place] [address] PCP - General Family Medicine 04/04/23 Eliceo Gómez DO [address] [place] [address] PCP - [facility] 05/06/23 Dipti Acevedo DO [address] [place] [address] Referring Physician Obstetrics and Gynecology 05/20/24 Client Development Consultant Relationship Specialty Start Date End Date Eliceo Gómez DO [address] [place] [address] PCP - General Family Medicine 04/04/23 Eliceo Gómez, [address] [place] [address] PCP - [facility] 05/06/23 Dipti Acevedo, DO [address] [place] [address] Referring Physician Obstetrics and Gynecology 05/20/24 Client Development Consultant Relationship Specialty Start Date End Date Eliceo Gómez DO [address] [place] [address] PCP - General Family Medicine 04/04/23 Eliceo Gómez, [address] [place] [address] PCP - [facility] 05/06/23 Dipti Acevedo, DO [address] [place] [address] Referring Physician Obstetrics and Gynecology 05/20/24 Client Development Consultant Relationship Specialty Start Date End Date Eliceo Gómez DO [address] [place] [address] PCP - General Family [facility] 04/04/23 Eliceo Gómez, [address] [place] [address] PCP - [facility] 05/06/23 Dipti Acevedo, DO [address] [place] [address] Referring Physician Obstetrics and Gynecology 05/20/24 Client Development Consultant Relationship Specialty Start Date End Date Eliceo Gómez, DO [address] [place] [address] PCP - General Family Medicine 04/04/23 Eliceo Gómez, DO [address] [place] [address] PCP - [facility] 05/06/23 Dipti Acevedo, DO [address] [place] [address] Referring Physician Obstetrics and Gynecology 05/20/24 Client Development Consultant Relationship Specialty Start Date End Date Eliceo Gómez, DO [address] [place] [address] PCP - General Family Medicine 04/04/23 Eliceo Gómez, DO [address] [place] [address] [facility] - [facility] 05/06/23 Dipti Acevedo, DO [address] [place] [address] Referring Physician Obstetrics and Gynecology 05/20/24 Client Development Consultant Relationship Specialty Start Date End Date Eliceo Gómez, DO [address] [place] [address] PCP - General Family Medicine 04/04/23 Eliceo Gómez, DO [address] [place] [address] PCP - [facility] 05/06/23 Dipti Acevedo, DO [address] [place] [address] Referring Physician Obstetrics and Gynecology 05/20/24 Client Development Consultant Relationship Specialty Start Date End Date Shannon Gómez DO [address] [place] [address] PCP - [facility] 11/14/23 Client Development Consultant Relationship Specialty Start Date End Date Eliceo Gómez, DO [address] [place] [address] PCP - [facility] 04/04/23 Eliceo Gómez, DO [address] [place] [address] PCP - [facility] 05/06/23 Dipti Acevedo, DO [address] [place] [address] Referring Physician Obstetrics and Gynecology 05/20/24 Client Development Consultant Relationship Specialty Start Date End Date Eliceo Gómez DO [address] [place] [address] PCP - [facility] 04/04/23 Eliceo Gómez, DO [address] [place] [address] PCP - [facility] 05/06/23 Dipti Acevedo, DO [address] [place] [address] Referring Physician Obstetrics and Gynecology 05/20/24 Client Development Consultant Relationship Specialty Start Date End Date Eliceo Gómez DO [address] [place] [address] PCP - General Family Medicine 04/04/23 Eliceo Gómez DO [address] [place] [address] PCP - [facility] 05/06/23 Dipti Acevedo, DO [address] [place] [address] Referring Physician Obstetrics and Gynecology 05/20/24 Client Development Consultant Relationship Specialty Start Date End Date Eliceo Gómez Jr., DO [address], [address] [place] [address] PCP - General Family Medicine 12/11/19 [place] [phone] [place] [phone] (Work) Consulting Physician Behavioral Health 12/20/23 Client Development Consultant Relationship Specialty Start Date End Date Eliceo Gómez Jr., [address] [place] [address] PCP - General Family Medicine 12/11/19 Client Development Consultant Relationship Specialty Start Date End Date Eliceo Gómez Jr., DO [address] [place] [address] PCP - General Family Medicine 12/11/19 Client Development Consultant Relationship Specialty Start Date End Date Eliceo Gómez Jr., DO [address], [address] [place] [address] PCP - General Family Medicine 12/11/19 [facility] [address] [facility] [address] [place] [phone] (Work) Consulting Physician Behavioral Health 12/20/23 Client Development Consultant Relationship Specialty Start Date End Date Eliceo Gómez Jr., DO [address], [address] [place] [address] PCP - General Family Medicine 12/11/19 [facility] [address] [facility] [address] [place] [phone] (Work) Consulting Physician Behavioral Health 12/20/23 Client Development Consultant Relationship Specialty Start Date End Date Eliceo Gómez Jr., DO [address], [address] [place] [address] PCP - General Family Medicine 12/11/19 [facility] [address] [facility] [address] [place] [phone] (Work) Consulting Physician Behavioral Health 12/20/23 Client Development Consultant Relationship Specialty Start Date End Date Eliceo Gómez Jr., DO [address], [address] [place] [address] PCP - General Family Medicine 12/11/19 [facility] [address] [facility] [address] [place] [phone] (Work) Consulting Physician Behavioral Health 12/20/23 Client Development Consultant Relationship Specialty Start Date End Date Eliceo Gómez, DO [address] [place] [address] PCP - General Family Medicine 04/04/23 Eliceo Gómez, DO [address] [place] [address] PCP - [facility] 05/06/2310/05 Dipti Acevedo, DO [address] [place] [address] Referring Physician Obstetrics and Gynecology 05/20/24 Client Development Consultant Relationship Specialty Start Date End Date Eliceo Gómez DO [address] [place] [address] PCP - General Family Medicine 04/04/23 Eliceo Gómez DO [address] [place] [address] PCP - [facility] 05/06/2310/05 Dipti Acevedo, [address] [place] [address] Referring Physician Obstetrics and Gynecology 05/20/24 Client Development Consultant Relationship Specialty Start Date End Date Eliceo Gómez Jr., DO [address] [address] [address] [place] [address] PCP - General Family Medicine 12/11/19 [facility] [address] Consulting Physician Behavioral Health 12/20/23 Team Status: Inactive Member Role Status Henrietta Gómez DO Primary Care Provider Active Start: February 25, 2025 End: February 25, 2025 Monica Burns NP-C Attending Provider Active St art: February 25, 2025 End: February 25, 2025 Client Development Consultant Relationship Specialty Start Date End Date Eliceo Gómez DO [address] [place] [address] PCP - General Family Medicine 04/04/23 Eliceo Gómez DO [address] [place] [address] PCP - [facility] 05/06/2310/05 Dipti Acevedo, [address] [place] [address] Referring Physician Obstetrics and Gynecology 05/20/24 Client Development Consultant Relationship Specialty Start Date End Date Eliceo Gómez Jr., DO [address] [facility] [place] [address] PCP - General Family Medicine 12/11/19 [facility] [address] [place] [phone] (Work) Consulting Physician Behavioral Health 12/20/23 Team Status: Inactive Member Role Status Henrietta Gómez DO Primary Care Provider Active Start: April 30, 2025 End: April 30, 2025 Salma Galeas DO Attending Provider Active Start: April 30, 2025 End: April 30, 2025 Client Development Consultant Relationship Specialty Start Date End Date Eliceo Gómez Jr., DO [address] [facility], [address] [place] [address] PCP - General Family Medicine 12/11/19 [place] [phone] (Work) Consulting Physician Behavioral Health 12/20/23 Client Development Consultant Relationship Specialty Start Date End Date Eliceo Gómez Jr., DO [address] [facility] [address], [address] [place] [address] PCP - General Family Medicine 12/11/19 [facility] [address] [place] [phone] (Work) Consulting Physician Behavioral Health 12/20/23 Client Development Consultant Relationship Specialty Start Date End Date Eliceo Gómez DO [address] [place] [address] PCP - General Family Medicine 04/04/23 Dipti Acevedo DO [address] [place] [address] Referring Physician Obstetrics and Gynecology 05/20/24 Client Development Consultant Relationship Specialty Start Date End Date Eliceo Gómez DO [address] [place] [address] PCP - General Family Medicine 04/04/23 Dipti Acevedo DO [address] [place] [address] Referring Physician Obstetrics and Gynecology 05/20/24 Client Development Consultant Relationship Specialty Start Date End Date Eliceo Gómez DO [address] [place] [address] PCP - General Family Medicine 04/04/23 Dipti Acevedo DO [address] [place] [address] Referring Physician Obstetrics and Gynecology 05/20/24 Team Status: Inactive Member Role Status Henrietta Gómez DO Primary Care Provider Active Start: July 01, 2025 End: July 01, 2025 Monica Burns NP-C Attending Provider Active St art: July 01, 2025 End: July 01, 2025 Client Development Consultant Relationship Specialty Start Date End Date Eliceo Gómez DO [address] [place] [address] PCP - General Family Medicine 04/04/23 Dipti Acevedo DO [address] [place] [address] Referring Physician Obstetrics and Gynecology 05/20/24 Client Development Consultant Relationship Specialty Start Date End Date Eliceo Gómez DO [address] [place] [address] PCP - General Family Medicine 04/04/23 Dipti Acevedo, DO [address] [facility] [address] [place] [address] Referring Physician Obstetrics and Gynecology 05/20/24 Client Development Consultant Relationship Specialty Start Date End Date Eliceo Gómez Jr., DO [address] [place] [address] PCP - General Family Medicine 12/11/[phone] (Work) Consulting Physician Behavioral Health 12/20/23 Client Development Consultant Relationship Specialty Start Date End Date Eliceo Gómez Jr., DO [address] [place] [address] [address] [place] [address] PCP - General Family Medicine 12/11/19 [facility] [address] [place] [phone] (Work) Consulting Physician Behavioral Health 12/20/23 Client Development Consultant Relationship Specialty Start Date End Date Eliceo Gómez Jr., DO [address] [place] [address] [address], [address] [place] [address] PCP - General Family Medicine 12/11/19 [facility] [address] [place] [phone] (Work) Consulting Physician Behavioral Health 12/20/23 Goals (unrecognized [...] [phone] (Given - Provid er: Jaren oLpez RN) hyoscyamine (LEVSIN) 0.125 MG/5ML elixir 250 [...] BE BASED ON THE PRIMARY CLINICAL RECORDS. [employer] provides no warranty or guarantee of the accuracy or completeness of information in this document.
--- NOTE | 2025-07-30 07:53 | PM.CN ---
Consult Note: HPI Data of Consult Patient: known to practice within the last 3 years Requesting Physician: Monica Burns NP Primary Care Provider: Isatu CASTRO Consult Narrative Reason for consult: low back pain Narrative: Mary Leal a pleasant 55 year old female presents for evaluation and management of chronic low back pain unresponsive to > 6 weeks of PT/HEP, heat, ice, tylenol, NSAIDs. utilizing zonegran 50mg HS, diclofenac 75mg BID PRN with benefit. recently underwent left SIJ injection with 100% improvement per pt, pain 0/10 increasing to 0/10 in low back. cc:: CC: Monica Burns NP Review of Systems ROS Musculoskeletal Denies: back pain or extremity pain [facility] History (Updated 06/12/25 @ 08:00 by Monica Burns NP) Strain of muscle(s) and tendon(s) of peroneal muscle group at lower leg level, right leg, initial encounter ?S86.311A - Strain of muscle(s) and tendon(s) of peroneal muscle group at lower leg level, right leg, initial encounter (ICD-10) Pain in right ankle and joints of right foot ?M25.571 - Pain in right ankle and joints of right foot (ICD-10) Primary osteoarthritis, right ankle and foot ?M19.071 - Primary osteoarthritis, right ankle and foot (ICD-10) Overactive bladder ?N32.81 - Overactive bladder (ICD-10) Insomnia ?G47.00 - Insomnia, unspecified (ICD-10) Bipolar disorder ?F31.9 - Bipolar disorder, unspecified (ICD-10) Gastroparesis ?K31.84 - Gastroparesis (ICD-10) Panic attacks ?F41.0 - Panic disorder [episodic paroxysmal anxiety] (ICD-10) OCD (obsessive compulsive disorder) ?F42.9 - Obsessive-compulsive disorder, unspecified (ICD-10) COVID-19 ?U07.1 - COVID-19 (ICD-10) Migraine ?G43.909 - Migraine, unspecified, not intractable, without status migrainosus (ICD-10) Gastritis ?K29.70 - Gastritis, unspecified, without bleeding (ICD-10) GERD (gastroesophageal reflux disease) ?K21.9 - Gastro-esophageal reflux disease without esophagitis (ICD-10) Peroneal tendinitis ?M76.70 - Peroneal tendinitis, unspecified leg (ICD-10) Posterior tibial tendon dysfunction ?M76.829 - Posterior tibial tendinitis, unspecified leg (ICD-10) Painful orthopaedic hardware ?T84.84XA - Pain due to internal orthopedic prosthetic devices, implants and grafts, initial encounter (ICD-10) Post op infection ?T81.40XA - Infection following a procedure, unspecified, initial encounter (ICD-10) Restless leg syndrome ?G25.81 - Restless legs syndrome (ICD-10) Tibialis anterior tendon tear, traumatic ?S86.219A - Strain of muscle(s) and tendon(s) of anterior muscle group at lower leg level, unspecified leg, initial encounter (ICD-10) Osteoarthritis ?M19.90 - Unspecified osteoarthritis, unspecified site (ICD-10) Back pain ?M54.9 - Dorsalgia, unspecified (ICD-10) Sleep disorder ?G47.9 - Sleep disorder, unspecified (ICD-10) PTSD (post-traumatic stress disorder) ?F43.10 - Post-traumatic stress disorder, unspecified (ICD-10) Depression ?F32.A - Depression, unspecified (ICD-10) Anxiety ?F41.9 - Anxiety disorder, unspecified (ICD-10) Sleep apnea ?G47.30 - Sleep apnea, unspecified (ICD-10) Asthma ?J45.909 - Unspecified asthma, uncomplicated (ICD-10) Constipation ?K59.00 - Constipation, unspecified (ICD-10) High cholesterol ?E78.00 - Pure hypercholesterolemia, unspecified (ICD-10) Hypertension ?I10 - Essential (primary) hypertension (ICD-10) Female rectocele with enterocele ?N81.6 - Rectocele (ICD-10) ?K46.9 - Unspecified abdominal hernia without obstruction or gangrene (ICD-10) 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 - Other specified functional intestinal disorders (ICD-10) Surgical History S/P foot surgery ?Z98.890 - Other specified postprocedural states (ICD-10) H/O cervical spine surgery ?Z98.890 - Other specified postprocedural states (ICD-10) S/P placement of nerve stimulator (01/02/24) ?Z96.82 - Presence of neurostimulator (ICD-10) S/P placement of nerve stimulator ?Z96.82 - Presence of neurostimulator (ICD-10) History of ankle surgery (11/13/23) ?Z98.890 - Other specified postprocedural states (ICD-10) H/O tooth extraction ?K08.409 - Partial loss of teeth, unspecified cause, unspecified class (ICD-10) H/O foot surgery (05/12/23) ?Z98.890 - Other specified postprocedural states (ICD-10) History of appendectomy (1987) ?Z90.49 - Acquired absence of other specified parts of digestive tract (ICD-10) History of colonoscopy ?Z98.890 - Other specified postprocedural states (ICD-10) History of colectomy (03/2022) ?Z90.49 - Acquired absence of other specified parts of digestive tract (ICD-10) History of tonsillectomy and adenoidectomy ?Z90.89 - Acquired absence of other organs (ICD-10) History of hysterectomy (2014) ?Z90.710 - Acquired absence of both cervix and uterus (ICD-10) History of arthroplasty of right ankle ?Z98.890 - Other specified postprocedural states (ICD-10) History of repair of rotator cuff ?Z98.890 - Other specified postprocedural states (ICD-10) S/P ankle ligament repair (2020) ?Z98.890 - Other specified postprocedural states (ICD-10) Family History Other Family history of Alzheimer's disease Family history of coronary artery disease Family history of heart disease Family history of hypertension Social History Within the past year, how often did you have a drink containing alcohol: never Score interpretation: A score less than 3 is consistent with normal alcohol consumption. Smoking status: Never smoker Non-prescribed substance use: denies use Previous occupational history: [employer] Highest level of school completed/degree received: some college, no degree Little interest or pleasure in doing things: not at all Feeling down, depressed, or hopeless: not at all Feel stressed/tense/nervous/anxious/difficulty sleeping: only a little Due to disability, difficulty making decisions: No Do you think of yourself as: straight/heterosexual Gender Identity: female Meds Home Medications and Allergies Home Medications ?Medication ?Instructions ?Recorded ?Confirmed ?Type ropinirole 1 mg tablet 1 mg PO BID 05/04/23 07/21/25 History fluticasone fur. 100 mcg-umeclid 1 inh inhalation Q24H 11/03/23 07/21/25 History 62.5 mcg-vilant 25 mcg inhalat.powder (Trelegy Ellipta) aripiprazole 300 mg suspension, 300 mg IM Q28D 05/17/24 07/21/25 History extended rel. intramuscular syringe (Lolis Rush) atenolol 50 mg tablet 50 mg PO Q24H 05/17/24 07/21/25 History losartan 25 mg tablet 25 mg PO DAILY 05/17/24 07/21/25 History omeprazole 40 mg capsule,delayed 40 mg PO DAILY 05/17/24 07/21/25 History release galcanezumab-gnlm 120 mg/mL mg subcut 12/26/24 History subcutaneous pen injector (Emgality Pen) naltrexone 1.5 mg capsule mg PO 12/26/24 History dextroamphetamine-amphetamine 20 20 mg PO DAILY 05/05/25 07/21/25 History mg tablet (Adderall) zonisamide 50 mg capsule 50 mg PO DAILY #30 caps 06/12/25 07/21/25 Rx diclofenac sodium 75 mg 75 mg PO BID PRN pain #60 tabs 07/09/25 07/21/25 Rx tablet,delayed release Allergies Allergy/AdvReac Type Severity Reaction Status Date / Time risperidone (From Risperdal) AdvReac Mild breast Verified 07/21/25 07:20 nipples leak Exam Constitutional Documenting provider has reviewed patient's vital signs: yes Common normals: no apparent distress, oriented x3, healthy appearing, alert and well nourished General appearance: cooperative HENMT Common normals: normocephalic, hearing grossly normal bilaterally and moist oral mucous membranes Head and scalp: normocephalic Eye Common normals: PERRL Pupil: PERRL Neck & C-Spine Common normals: full ROM General: normal visual inspection Chest Common normals: inspection of chest normal Respiratory Common normals: normal respiratory effort, no retractions and no use of accessory muscles Back & Pelvis Lumbar spine/lower back: ROM limited; no pain with ROM and no lumbar spinal tenderness Sacroiliac joints: SI joints normal Other: left sij negative arcelia(patricks), gaenslens, thigh thrust, compression test Neuro Common normals: oriented x3 Sensorium/orientation: alert Psych Common normals: mental status grossly normal, thought process normal, cooperative, affect normal, speech normal and activity/motor behavior normal Speech: normal speech Thought process: normal thought process Results Additional Findings Additional findings: If on a controlled substance or opioids, I have checked an [place] report on this patient and there are no aberrancies noted in the prescribing history.??If on a controlled substance or opioid a drug screen was completed and reviewed within the last year, and if there has not been a drug screen completed we ordered one today to monitor higher risk, state monitored pain medication use. As part of providing excellent, safe, comprehensive care, the following was completed at our patient's visit: 1. A medication reconciliation and review to ensure accurate knowledge of current/active medications, including asking our patients to inform us about any [id number] medications or herbal remedies/nutritional supplements/alternative remedies. 2. A review to specifically ensure our patients have had annual screening for screening for depression, screening for tobacco use, and screening for unhealthy alcohol use. For concerning screenings had a discussion with the patient, provided patient education, and recommended follow-up with primary care provider when appropriate. If patient noted with a risk of falling, they received education on strength, gait, and balance training to prevent future risk of falling. Portions of this note may have been carried over from the previous visit and updated as appropriate. Please note this office utilizes paper charting in addition to the electronic medical record. A list of current medications, vitals, and PMH is available there as the clinical staff outside of myself do not have access to [employer] charting during the clinic day operations. As part of providing quality comprehensive care the current medications, vitals, and PMH were reviewed in the paper chart. Assessment and Plan Assessment and Plan (1) Sacroiliitis: Assessment and Plan: 07-21-25 left SIJ injection 100% improvement ongoing (2) Lumbar spondylosis: Plan encouraged to utilize diclofenac 75mg BID PRN sparingly as pain has improved continue HEP as tolerated f/u 3 months, sooner if needed
== END 2025-07-30 07:40 | disposition home or self-care (01) ==
LOC: PM 07:39
PROVIDERS: PCP Family Medicine; Visit Provider Nurse Practitioner
DX: M46.1 Sacroiliitis, not elsewhere classified (principal); M47.816 Spondylosis without myelopathy or radiculopathy, lumbar region
CPT/HCPCS: G0463